=== PATIENT | male | born 1960 ===

== ENCOUNTER 2019-12-06 00:17 | Outpatient (CLI) | payer OTHER, SELFPAY ==
--- NOTE | 2019-12-06 11:37 | DI.US_ITS ---
APPROVED REPORT EXAM: Comprehensive 2D, Doppler, and color-flow Echocardiogram Patient Location: Out-Patient [facility] Helper: Gwen Horta RDCS (AE) Indications: Non Rheumatic Aortic Stenosis Conclusion Left Ventricle : The left ventricle is normal size. There is normal left ventricular wall thickness. The left ventricular systolic function is normal. The left ventricular ejection fraction is within th e normal range. There is normal LV segmental wall motion. The left ventricular diastolic function is normal. LVEF is 50-55%. Right Ventricle : The right ventricle is normal size. The right ventricular systolic function is norm al. Atria : The left atrium size is normal. Right atrium is borderline dilated. Aortic Valve : The aortic valve is normal in structure. Aortic valve is trileaflet. Mild aortic regur gitation. Mild aortic stenosis. Mitral Valve : The mitral valve is normal in structure. There is no mitral valve regurgitation noted. No evidence of mitral valve stenosis. Great vessels: IVC is normal in size and collapses >50% with inspiration. There is no prior echocardiogram available for comparison. Wall motion Left Ventricle The left ventricle is normal size. The left ventricular systolic function is normal. The left ventric ular ejection fraction is within the normal range. There is normal left ventricular wall thickness. T here is normal LV segmental wall motion. The left ventricular diastolic function is normal. LVEF is 5 0-55%. Right Ventricle The right ventricle is normal size. The right ventricular systolic function is normal. Atria The left atrium size is normal. Right atrium is borderline dilated. Aortic Valve The aortic valve is normal in structure. Aortic valve is trileaflet. Mild aortic stenosis. Mild aorti c regurgitation. Mitral Valve The mitral valve is normal in structure. No evidence of mitral valve stenosis. There is no mitral allison ve regurgitation noted. Tricuspid Valve The tricuspid valve is normal in structure. There is no tricuspid valve stenosis. Trace to mild tricu spid regurgitation. Pulmonic Valve The pulmonary valve is normal in structure. There is no pulmonic valvular stenosis. There is no pulmo maddison valvular regurgitation. Great Vessels The aortic root is normal in size. The ascending aorta is normal in size. IVC is normal in size and c ollapses >50% with inspiration. Pericardium There is no pericardial effusion. 2D Dimensions IVSD d PLAX 1.01 cm LV Vol A2C d MOD 101.6 mL LVPW d PLAX 0.97 cm LV Vol A4C d MOD 82.5 mL LVID d PLAX 4.29 cm LA vol/ BSA A2C s A-L 17.9 mL/m2 LVDs 3.10 cm LA vol/ BSA A4C s A-L 19.1 mL/m2 Ao Root d 3.31 cm LA Vol/ BSA Biplane s A-L 18.9 mL/m2 RA Area A4C 11.33 cm2 LA Area A4C s MOD 12.58 cm2 RA Vol/ BSA A4C s A-L 14.2 mL/m2 LA Area A2C s MOD 12.43 cm2 Ao Asc Diam d 3.26 cm LV EF A4C MOD 45.7 % LV EF Teichholz 54.0 % LV EF A2C MOD 58.6 % LVEF (Herron's) 53.08 % LV EF Biplane MOD 53.1 % LV Volume 73.85 mL LV Volume Index 46.63 mL/m2 LV Vol Biplane MOD 94.4 mL FS 27.65 % LV Diastology MV E' medial 0.072 (>0.07 m/s) E/A Ratio 1.25 LV E/e MED 9.15 (<14) MV E Vmax 0.66 (0.4-1.3 m/s) MV E' lateral 0.116 (>0.1 m/s) MV A Vmax 0.50 (0.4-1.3 m/s) LV E/e LAT 5.70 (<14) MV E/A Ratio 1.25 MV E/E' medial 9.19 MV E/E' lateral 5.71 Aortic Valve LVOT Vmax 0.81 m/s AR DT 1863 msec LVOT Mean Macho. 0.51 m/s AR PHT 540 msec LVOT Peak Grad 2.6 mmHg LVOT Mean Grad 1.2 mmHg LVOT VTI 0.208 m AoV Vmax 2.79 (0.5-1.3 m/s) AoV Mean Macho. 2.04 m/s AoV Peak Grad 31.2 mmHg AoV Mean Grad 18.3 (<5 mmHg) AoV VTI 0.649 (0.18-0.25 m) Mitral Valve MV DT 174 (160-240 msec) MV PHT 50 msec MV Area PHT 4.36 cm2 Pulmonary Valve PV Vmax 0.98 (0.5-1.5 m/s) RVOT Peak Gr. 1.15 mmHg PV Peak Grad 3.9 mmHg RVOT Mean Gr. 0.60 mmHg PV Mean Grad 1.9 mmHg RVOT VTI 0.119 m PV VTI 0.199 m RVOT Vmax 0.54 m/s Tricuspid Valve TR Peak Grad 21.6 mmHg TR Vmax 2.33 m/s RA Pressure 3.00 mmHg RVSP (TR) 24.7 mmHg
== END 2019-12-06 00:37 ==
PROVIDERS: PCP Neuromusculoskeletal Medicine & OMM; Visit Provider Neuromusculoskeletal Medicine & OMM
DX: I35.2 Nonrheumatic aortic (valve) stenosis with insufficiency
CPT/HCPCS: 93306

== ENCOUNTER 2022-08-06 15:00 | Outpatient (CLI) | payer OTHER, SELFPAY ==
--- NOTE | 2022-08-06 14:30 | DI.RAD_ITS ---
Exam(s) XR HIP LT COMPLETE AP PELVIS EXAM: XR HIP LT COMPLETE AP PELVIS INDICATION: suspect osteoarthritis. COMPARISON: No exams were available for comparison TECHNIQUE: 2D digital imaging was performed. Two views. FINDINGS: Mild bilateral hip joint space narrowing. Left moderate acetabular spurring and mild spurring at the margin of the left femoral head. Subchondral cysts. Mild spurring at the right hip joint. IMPRESSION: Moderate degenerative changes of the left hip. Mild degenerative changes of right hip. DATA REPOSITORY: RADIATION DOSE DELIVERED:
== END 2022-08-06 15:01 | disposition home or self-care (01) ==
LOC: DIORS 15:00
PROVIDERS: PCP Neuromusculoskeletal Medicine & OMM; Referring Provider Neuromusculoskeletal Medicine & OMM; Visit Provider Physician Assistant Surgical
DX: M25.552 Pain in left hip (principal); M16.0 Bilateral primary osteoarthritis of hip
CPT/HCPCS: 73502

== ENCOUNTER → 2022-08-23 02:53 | Outpatient (CLI) | payer OTHER, SELFPAY ==
--- NOTE | 2022-08-23 14:52 | W.PROCNOTE ---
Date of service: 08/23/22 Time of Service: 14:52 Procedure Note Date of procedure: 08/23/22 Procedure: Left Hip Injection with Fluoroscopic Guidance Surgeon/Proceduralist/Physician: Talon Keller Procedure Diagnosis: Left Hip Osteoarthritis Procedure Indications: Karlos has had persistent pain of the LEFT hip and groin. Noninvasive measures have been tried. To serve as both diagnostic and therapeutic, an injection under fluoroscopy was recommended. I had discussed the risks of the procedure and the patient elected to proceed. Procedure Description: Karlos was greeted in the flouroscopy room. The correct side was identified and the consent was reviewed with the patient and signed. The patient was then placed in the supine position on the fluoroscopy table. The LEFT hip was then prepped with Chloraprep. The anterolateral injection starting point was identiifed by bony landmarks and fluoroscopy. The skin and soft tissue in the tract of the injection was anesthetized with 1% Lidocaine. A spinal needle was then inserted deep into the hip joint at the level of the lateral femoral neck under fluoroscopic guidance. A small amount of Omnipaque solution was injected to confirm intraarticular placement. Once confirmed, the hip was injected with 5cc of 0.5% Bupivicaine and 80mg of Depo-Medrol. A bandaid was placed on the injection site. The patient tolerated the procedure well and noted improvement in pre-injection pain.
[2022-08-23] MEDS: Bupivacaine 0.5% Pres-Free 10 ML VIAL 5 ML IJ (14:59)
[2022-08-23] MEDS: methylPREDNISolone ACETATE 80 MG/ML VIAL IM (15:00)
--- NOTE | 2022-08-23 15:04 | DI.RAD_ITS ---
Exam(s) RF JOINT INJECTION FLUORO GUID EXAM: RF JOINT INJECTION FLUORO GUID CLINICAL HISTORY: L HIP INJ UNDER FLUORO, LT HIP PAIN, M25.552 TECHNIQUE: 2D and realtime digital imaging was performed. COMPARISON: No exams were available for comparison FINDINGS: Fluoroscopy was utilized by Dr. Keller during left hip injection. Hard copy shows intra-articular injection. IMPRESSION: RADIATION DOSE DELIVERED: Halr=0.68 mGy Total DLP
== END ==
PROVIDERS: PCP Neuromusculoskeletal Medicine & OMM; Visit Provider Student in an Organized Health Care Education/Training Program
DX: M25.552 Pain in left hip (principal)
CPT/HCPCS: 20610; 77002; J1040

== ENCOUNTER 2023-02-11 07:20 | Emergency (ER) | payer OTHER, SELFPAY ==
[2023-02-11 07:24] VITALS: BP 144/85; PULSE 58; RESP 20; TEMP 37; O2SAT 95
--- NOTE | 2023-02-11 07:37 | W.ED.GENAD ---
Discharge Plan Disposition Patient Disposition: Home Discharge Details Clinical Impression: Infected tick bite of thoracic region Primary Care Provider: Sachin Sainz ED Provider: Velasquez Willett Home Meds and New Rx's Prescriptions: New doxycycline hyclate 100 mg capsule 100 mg PO BID Qty: 10 0RF Continued omeprazole 20 mg tablet,delayed release (DR/EC) 20 mg PO DAILY atorvastatin 10 mg tablet 10 mg PO DAILY brimonidine 0.2 % drops 1 drp ophthalmic (eye) BID dorzolamide (PF) 2 % drops 1 drp ophthalmic (eye) BID lisinopril 10 mg tablet 10 mg PO DAILY timolol maleate 0.5 % drops 1 drp ophthalmic (eye) BID Discharge Instructions Instructions: Tick Bite (ED) Additional Instructions: Please read all of the information that accompanies these instructions. You were seen in the emergency department for your check right. It is possible that you have an early infection of your tick bite for which you are receiving antibiotics that you should take infected. Please schedule an appointment with your primary care provider later this week as needed. Please return to the emergency department if if you develop fevers difficulty breathing or have any other concerns. Medical Decision Making This is an overall quite well-appearing normothermic and not tachycardic 62-year-old male who is 5 days status post tick bite now with erythema and surrounding streaking red signs of infection concerning for the possibility of early localized infection from Borrelia burgdorferi for which he will receive 10 days of twice daily treatment with doxycycline. No shortness of breath to suggest Lyme carditis. Not altered to suggest late disseminated infection. Patient has what appears to be retained mouthparts from a tick. I advised him that the risks of surgical removal of these mouthparts outweigh the benefits of empiric trial of expectant outpatient management. I advised patient to soak his tick bite twice a day with a warm washcloth. I advised that if he developed significant swelling or any purulent drainage that he should return back to the ED. I considered cellulitis however the red band surrounding the patient's rash was most consistent with erythema migrans. No pain out of proportion to suggest necrotizing soft tissue infection. No chest pain to suggest ACS. Patient is nontoxic-appearing to suggest babesiosis. No history of trauma and no shortness of breath to suggest pneumothorax. I have advised primary care follow-up as needed later this week. I also advised ED return if he develops any shortness of breath fevers chest pain or if he has any other concerns. HPI General Date/Time Provider Initiated Documentation: 02/11/23 07:37. HPI Narrative: This is a 62-year-old male arriving via private vehicle with a tick bite on his right chest. Patient notes that he was walking with his dog outdoors in [facility]. 5 days ago he feels that he was bitten by a tick. The tick bite was on his right chest. 3 days ago using his finger and some tweezers and he was able to remove the majority of the check. He is concerned today as he noticed a rash surrounding the tick bite. He is also concerned about the retained parts of the tick. He denies any fevers chest pain shortness of breath nausea and vomiting. He is not having any chest pain. He has no headache. Related Data Home Medications Medication Instructions Recorded Confirmed atorvastatin 10 mg tablet 10 mg PO DAILY 06/18/22 02/11/23 brimonidine 0.2 % eye drops 1 drp ophthalmic (eye) BID 06/18/22 02/11/23 dorzolamide (PF) 2 % (PF) eye drops 1 drp ophthalmic (eye) BID 06/18/22 02/11/23 lisinopril 10 mg tablet 10 mg PO DAILY 06/18/22 02/11/23 timolol maleate 0.5 % eye drops 1 drp ophthalmic (eye) BID 06/18/22 02/11/23 omeprazole 20 mg tablet,delayed 20 mg PO DAILY 08/06/22 02/11/23 release doxycycline hyclate 100 mg capsule 100 mg PO BID #10 caps 02/11/23 Previous Rx's Medication Instructions Recorded doxycycline hyclate 100 mg capsule 100 mg PO BID #10 caps 02/11/23 Allergies Allergy/AdvReac Type Severity Reaction Status Date / Time No Known Allergies Allergy Verified 02/11/23 07:31 General Stated Complaint: AnimalBite EMILIANO: 4 PFSH All Active Problems (Updated 02/11/23 @ 07:47 by Velasquez Willett MD) Infected tick bite of thoracic region (Acute) Osteoarthritis of left hip (Acute) Aortic stenosis (Chronic) Medical History (Updated 02/11/23 @ 07:47 by Velasquez Willett MD) Chest pain GERD (gastroesophageal reflux disease) Glaucoma Heart murmur Hyperlipidemia Hypertensive disorder Unilateral inguinal hernia Social History Smoking/Tobacco Use Status: Never Smoking risk assessment performed?: Yes Alcohol Intake: never Substance use type: does not use Do you feel safe at home: Yes Do you feel safe in your relationship?: Yes Exam Narrative Exam Narrative: General: Well-appearing in no acute distress speaking in complete sentences. Head: Normocephalic, atraumatic. Eye: Pupils equal, round reactive to light. Extraocular eye movements intact. No conjunctival injection. No scleral icterus. Ear, nose, mouth, throat: Grossly normal inspection. Normal voice, handling secretions normally. Neck: Trachea midline. Cardiovascular: Well-perfused distal extremities. Chest wall: On the right side of the patient's chest just medial to his right nipple there is a small area of body parts from what appears to be a tic. Just lateral to this there is an approximately 6 cm erythematous demarcation. No pain out of proportion. No crepitance. Respiratory: Nonlabored respiration. Gastrointestinal: Nondistended abdomen. Musculoskeletal: No edema. Moving all 4 extremities spontaneously. Skin: Normal for age and race, grossly normal temperature and turgor. No acute rash. Neurologic: Alert and appropriate, no apparent acute deficits. Psychiatric: Mood and manner are appropriate. Grooming and personal hygiene are appropriate. Course Vital Signs Vital signs: Vital Signs Temperature 37 C 02/11/23 07:24 Pulse 58 L 02/11/23 07:24 Respiratory Rate 20 02/11/23 07:24 Blood Pressure 144/85 H 02/11/23 07:24 Pulse Oximetry 95 02/11/23 07:24 Temperature 37 C 02/11/23 07:24 Temperature Source Oral 02/11/23 07:24 Pulse 58 L 02/11/23 07:24 Respiratory Rate 20 02/11/23 07:24 Respiratory Effort Normal, Non-Labored 02/11/23 07:27 Blood Pressure 144/85 H 02/11/23 07:24 Blood Pressure Position Sitting 02/11/23 07:24 Pulse Oximetry 95 02/11/23 07:24 Oxygen Delivery Method Room Air 02/11/23 07:24 Oxygen Flow Rate 0 02/11/23 07:24 Pain Level 0 02/11/23 07:24
[2023-02-11] MEDS: Doxycycline Hyclate 100 MG CAP PO (07:50)
== END 2023-02-11 07:52 | disposition home or self-care (01) ==
PROVIDERS: Emergency Provider Emergency Medicine; PCP Neuromusculoskeletal Medicine & OMM
DX: S20.361A Insect bite (nonvenomous) of right front wall of thorax, initial encounter (principal); W57.XXXA Bitten or stung by nonvenomous insect and other nonvenomous arthropods, initial encounter; L08.9 Local infection of the skin and subcutaneous tissue, unspecified
CPT/HCPCS: 99283

== ENCOUNTER 2023-10-24 15:50 | Outpatient (REF) | payer OTHER, SELFPAY ==
--- NOTE | 2023-10-24 14:30 | SKI_PTH ---
PATIENT: Karlos Anthony LOC: [facility] U#:[id number] AGE/SX: 63/M ROOM: RE10/24/[address]: Oscar Nichole MD : 1960 BED: DIS: 10/24/2023 SPEC #: [id number] RECD: 10/24/23 18:18 STATUS: CASSIE REQ #: [id number] MARYJANE: 10/24/23 14:[address]: Oscar Nichole DEPT: Surgical Specimen RECD BY: Shruthi Peña ENTERED: 10/24/23 18:19 SP TYPE: MANI MERINO DR: Vanessa Christian Tissues: 1 - SKIN BIOPSY(SHAVE/PUNCH) Procedures: SKIN LEVEL 4 Comments: [id number]
== END 2023-10-24 15:51 | disposition home or self-care (01) ==
LOC: LBN 15:50
PROVIDERS: PCP Nurse Practitioner Family; Visit Provider Otolaryngology
DX: L82.1 Other seborrheic keratosis (principal)
CPT/HCPCS: 88305

== ENCOUNTER 2023-12-18 16:36 | Outpatient (REF) | payer OTHER, SELFPAY ==
[2023-12-18 17:07] LABS: Anion Gap 4.1 mmol/L (3-11); BUN 14 mg/dL (7-18); CO2 30.9 mmol/L (21.0-32.0); Calcium 9.3 mg/dL (8.5-10.1); Chloride 104 mmol/L (98-107); Estimated GFR 84.05 (mL/min/1.73m2); Glucose 90 mg/dL (74-106); Magnesium 1.8 mg/dL (1.8-2.4); Potassium 4.9 mmol/L (3.5-5.1); Sodium 139 mmol/L (136-145)
== END 2023-12-18 16:37 | disposition home or self-care (01) ==
LOC: NCHCN 16:36
PROVIDERS: PCP Nurse Practitioner Family; Visit Provider Nurse Practitioner Family
DX: K30 Functional dyspepsia (principal); I10 Essential (primary) hypertension
CPT/HCPCS: 80048; 83735

== ENCOUNTER 2024-03-30 11:25 | Outpatient (RCR) | payer OTHER, SELFPAY | END 2024-04-05 23:59 | disposition home or self-care (01) | LOC: CR 11:25 | PROVIDERS: PCP Nurse Practitioner Family; Visit Provider Internal Medicine Cardiovascular Disease | DX: I25.810 Atherosclerosis of coronary artery bypass graft(s) without angina pectoris (principal) | CPT/HCPCS: S9472 ==

== ENCOUNTER 2024-04-16 01:04 | Outpatient (CLI) | payer OTHER, SELFPAY ==
[2024-04-16 10:05] LABS: Calculated LDL 101 mg/dL (<100); Cholesterol 171 mg/dL (<200); HDL Cholesterol 36 mg/dL (40-60); Triglyceride 171 mg/dL (<150)
== END 2024-04-16 01:05 | disposition home or self-care (01) ==
LOC: LBO 01:04
PROVIDERS: Absent Provider Nurse Practitioner Family; PCP Nurse Practitioner Family; Referring Provider Nurse Practitioner Family; Visit Provider Nurse Practitioner Family
DX: E78.5 Hyperlipidemia, unspecified (principal)
CPT/HCPCS: 36415; 80061

== ENCOUNTER 2024-05-06 08:32 | Outpatient (RCR) | payer OTHER, SELFPAY ==
--- OUTSIDE RECORDS SUMMARY | 2024-05-06 08:34 | XMS_ITS | Referral Summary ---
Author Organization [facility] Address [address] [place] [address] Care Team Providers Care Spud Sorter Name Role Phone Filidayna Vanessa Sherman NP Primary Care Provider [phone] Social History Tobacco Use Types Packs/Day Years Used Date Smoking Tobacco: Never Assessed Sex and Gender Information Value Date Recorded Sex Assigned at Not on file Gender Identity Not on file Sexual Orientation Not on file Plan of Treatment Not on file Care Teams Spud Sorter Relationship Specialty Start Date End Date Vanessa Christian NP [address] [place] [address] PCP - General Family Medicine - Primary Care 10/07/23
--- OUTSIDE RECORDS SUMMARY | 2024-05-06 08:34 | XMS_ITS | Encounter Summary ---
Author Organization [facility] Address [address] [place] [address] Care Team Providers Care Electric Meter Repairer Helper Name Role Phone Vanessa Christian Lane MONCADA Primary Care Provider [phone] Encounter Details Date Type Department Care Team (Late st Contact Info) Description 10/24/2023 Lab Requisition [facility] Pathology & Laboratory Medicine - [address] [address] Oscar Nichole MD [address] [place] [address] [id number] Factitial dermatitis Social History Tobacco Use Types Packs/Day Years Used Date Smoking Tobacco: Never Assessed Sex and Gender Information Value Date Recorded Sex Assigned at Not on file Gender Identity Not on file Sexual Orientation Not on file documented as of this encounter Plan of Treatment Not on file documented as of this encounter Procedures Procedure Name Priority Date/Time Associated Diagnosis Comments SURGICAL PATHOLOGY Today 10/24/2023 14 :30 EST Factitial dermatitis documented in this encounter Results * SURGICAL PATHOLOGY (10/24/2023 14:30 EST) Note to Patient The following pathology results have been interpreted by your pathologist and may be available to you before your health provider has had the opportunity to review them. Please allow time for your provider to receive these results and explore management options, if applicable. 10/28/2023 11:24 EST [facility] Final Diagnosis A. SKIN OF MANDAEN, LEFT, SHAVE BIOPSY: - Seborrheic keratosis, pigmented. 10/28/2023 11:24 EST [facility] Attestation By the signature below, the attending physician certifies that they have 1) personally conducted a gross and/or microscopic examination of the described specimen(s), and/or personally interpreted the results of laboratory testing of the described specimen(s), and 2) personally rendered or confirmed the above diagnosis. 10/28/2023 11:24 [facility] at 1124 Microscopic Description The stratum corneum is thickened by compact and basketweave orthokeratosis with formation of horn pseudocysts. The epidermis is acanthotic with formation of broad and anastomosing trabeculae. The trabeculae are composed of basaloid keratinocytes with round uniform nuclei. The keratinocytes have a variable amount of melanin pigment. 10/28/2023 11:24 [facility] Clinical History Pigmented 2 cm patch; clinical diagnosis code: L98.1 10/28/2023 11:24 [facility] Gross Description A. Received in formalin labelled with proper patient identification (initials P, A) and left jewish is a shave biopsy of an irregular fisher-brown granular plaque (1.8 x 1.3 x 0.2 cm). Received in the same specimen container is a shave biopsy of irregular rogers focally brown skin (0.7 x 0.4 x 0.1 cm). The larger tissue is serially sectioned and entirely submitted in A1-A2 and the smaller tissue is bisected and entirely submitted in A3. Nora Anderson 10/25/2023 8:47 10/28/2023 11:24 [facility] Performing Lab [facility] 10/28/2023 11:24 [facility] Scanned Images 10/28/2023 11:24 [facility] Tissue SPECIMEN FROM SKIN / Unknown 10/24/2023 14:30 EST 10/24/2023 22:04 EST Oscar Nichole MD PATHOLOGY ORDERABLES [facility] [address] [place] [address] documented in this encounter Visit Diagnoses Diagnosis Factitial dermatitis Dermatitis factitia (artefacta) documented in this encounter Care Teams Electric Meter Repairer Helper Relationship Specialty Start Date End Date Vanessa Christian NP [address] [place] [address] PCP - General Family Medicine - Primary Care 10/07/23 documented as of this encounter
--- OUTSIDE RECORDS SUMMARY | 2024-05-06 08:34 | XMS_ITS | Clinical Summary ---
Author Organization [facility] Address [address] [place] [address] Care Team Providers Care Ethylbenzene Oxidizer Name Role Phone Vanessa Christian NP Primary Care Provider [phone] Social History Tobacco Use Types Packs/Day Years Used Date Smoking Tobacco: Never Assessed Sex and Gender Information Value Date Recorded Sex Assigned at Not on file Gender Identity Not on file Sexual Orientation Not on file Plan of Treatment Health Maintenance Due Date Last Done Comments Hepatitis C Screen 1960 RSV Immunization ( o r 60+ Years) (1 - 1-dose 60+ series) 2019 COVID-19 Vaccine (2022-24 season) 2023 Care Teams Ethylbenzene Oxidizer Relationship Specialty Start Date End Date Vanessa Christian NP [address] [place] [id number] PCP - General Family Medicine - Primary Care 10/07/23
--- OUTSIDE RECORDS SUMMARY | 2024-05-06 08:35 | XMS_ITS | Clinical Summary ---
Author Organization [facility] Address [facility] [place] [address] Care Team Providers Care Farm Equipment Operator Name Role Phone Gino Aparna Lane DOTSON Primary Care Provider [phone] Allergies No known active allergies Medications Medication Sig Dispensed Refills Start Date End Date Status aspirin EC 81 mg EC (DR) tablet Take 81 mg by mouth daily. Active multivitamin (THERAGRAN) Tablet Take 1 tablet by mouth daily. Active atorvastatin (Lipitor) 10 mg tablet Take 10 mg by mouth daily. Active brimonidine (Alphagan) 0.2 % Drops Place 1 drop into both eyes 2 times daily. Active tamsulosin (Flomax) 0.4 mg capsule Take 0.4 mg by mouth daily. Active timoloL (Timoptic) 0.5 % Drops Place 1 drop into both eyes daily. Active dorzolamide (Trusopt) 2 % Drops 3 times daily. Active acetaminophen (Tylenol) 325 mg tablet Take 3 tablets by mouth every 6 hours as needed for Pain. 30 tablet 1 02/24/2024 Active Additional Information Patient not taking.Reported on 03/12/2024 apixaban (Eliquis) 5 mg tablet Take 1 tablet by mouth 2 times daily. 180 tablet 3 02/24/2024 Active metoprolol tartrate (Lopressor) 100 mg tablet Take 1 tablet by mouth 2 times daily. 180 tablet 3 02/24/2024 Active amoxicillin (Amoxil) 500 mg capsule Take 4 capsules by mouth once as needed for up to 1 dose. Please take 1 hour PRIOR to ANY dental procedure 4 capsule 02/24/2024 Active Additional Information Patient not taking.Reported on 03/12/2024 apixaban (Eliquis) 5 mg tablet Take 1 tablet by mouth 2 times daily. 3 tablet 02/24/2024 Active metoproloL tartrate (Lopressor) 100 mg tablet Take 1 tablet by mouth 2 times daily. 3 tablet 02/24/2024 Active lisinopriL (Zestril) 10 mg tablet Take 1 tablet by mouth daily. 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 Trace regurgitation. Normal bi-v s/f, no other valve findings Assessment & Plan (10/21/2023 3:47 PM EST): Based on patient's history, it seems like he indeed has severe . However, his demographics, rapidity of worsening (had TTE in 2019 which demonstrated but mild disease) are contrary to this. Will review images personally, but in the meantime will [place] [facility] [place]. Logistics and preliminary review of TONY were reviewed with patient. - Refer to [facility] Hypertension 08/14/2023 HLD (hyperlipidemia) 08/14/2023 Resolved Problems Problem Noted Date Diagnosed Date Resolved Date Chest pressure 08/14/2023 10/21/2023 SILVA (dyspnea on exertion) 08/14/2023 Encounters Date Type Department Care Team Description 03/12/2024 2:40 PM EDT Office [place] [address] Zak Farmer MD Coronary artery disease, unspecified vessel or lesion type, unspecified whether angina present, unspecified whether yurok or transplanted heart 03/12/2024 1:30 PM EDT - 03/12/2024 11:59 PM EDT Hospital Encounter XRay at [address] [place] [id number] Coronary artery disease, unspecified vessel or lesion type, unspecified whether angina present, unspecified whether yurok or transplanted heart Discharge Disposition: Home 03/12/2024 Travel 02/24/2024 Orders [place] [address] Trudi Lester APRN 02/17/2024 7:35 AM EDT Anesthesia Event [place] [address] Tara York MD 02/17/2024 7:30 AM EDT - 02/17/2024 1:26 PM EDT Surgery [place] [address] Zak Farmer MD ENDOSCOPIC HARVEST VEIN(S) FOR CABG (WRVU 0.31) 02/17/2024 5:43 AM EDT - 02/24/2024 11:23 AM EDT Hospital Encounter Heart and Vascular Unit Level 4 [place] [address] Zak Farmer MD S/P AVR (Primary Dx); Aortic valve stenosis, etiology of cardiac valve disease unspecified Discharge Disposition: Home with VNA 02/14/2024 [place] [address] Zak Farmer MD Coronary artery disease, unspecified vessel or lesion type, unspecified whether angina present, unspecified whether yurok or transplanted heart (Primary Dx) from Last 3 Months Social History Tobacco Use Types Packs/Day Years Used Date Smoking Tobacco: Former Cigarettes Smokeless Tobacco: Never Comments:Quit 15 + years ago Alcohol Use Standard Drinks/Week Comments Yes 0 (1 standard drink = 0.6 oz pur e alcohol) rare [facility] Utilities Answer Date Recorded In the past 12 months has [employer], gas, oil, or water [employer] threatened to shut off services in your home? No 02/18/2024 Hunger Vital Sign Answer Date Recorded Within the past 12 months, y ou worried that your food would run out before you got the money to buy more. Never true 02/18/20 24 Within the past 12 months, t he food you bought just didn't last and you didn't have money to get more. Never true 02/18/2024 PRAPARE - Transportation Answer Date Re corded In the past 12 months, has l ack of transportation kept you from medical appointments or from getting medications? No 02/04 In the past 12 months, has l ack of transportation kept you from meetings, work, or from getting things needed for daily living? No 02/18/2024 Housing Stability Vital Sign Answer Manfred e Recorded Unable to Pay for Housing in the Last Year Not o n file 02/18/2024 Number of Places Lived in the Last Year Not on f ile 02/18/2024 In the last 12 months, was t here a time when you did not have a steady place to sleep or slept in a halfway (including now)? No 02/18/2024 DH IPV Inpatient Questions Answer Date Recorded Does Anyone Try to Keep You From Having Contact with Others or Doing Things Outside Your Home? unable to answer (comment required) 02/17/2024 Feels Threatened by Someone unable to an swer (comment required) 02/17/2024 Feels Unsafe at Home or Work/School unab le to answer (comment required) 02/17/2024 Physical Signs of Abuse Present no 02/17/2024 Sex and Gender Information Value Date Recorded Sex Assigned at Not on file Gender Identity Not on file Sexual Orientation Not on file Last Filed Vital Signs Vital Sign Reading Time Taken Comments Blood Pressure 128/75 03/12/2024 2:24 PM EDT Pulse 60 03/12/2024 2:24 PM EDT Temperature 36.7 ??C (98 ??F) 02/24/2024 7:49 AM EDT Respiratory Rate 18 02/24/2024 7:49 AM EDT Oxygen Saturation 98% 03/12/2024 2:24 PM EDT Inhaled Oxygen Concentration - - Weight 62.6 kg (138 lb) 03/12/2024 2:24 PM EDT Height 167.6 cm (5' 6) 03/12/2024 2:24 PM EDT Body Mass Index 22.27 03/12/2024 2:24 PM EDT Plan of Treatment Upcoming Encounters Date Type Department Care Team (Late st Contact Info) Description 05/27/2024 11:00 AM EDT Office Visit Cardiology at [address] [place] [address] Neftali Ernandez MD [facility] [place] [address] Health Maintenance Due Date Last Done Comments CT Colonography 1959 Colonoscopy 1959 Colorectal Cancer Screening 1959 FIT DNA 1959 FIT 1959 Sigmoidoscopy (10 year) with FIT yearly 1959 Sigmoidoscopy 1959 HIV screen 1977 Hepatitis C Screening 1977 Tdap adult 1978 Tetanus vaccine 1978 Zoster vaccine (1 of 2) 2009 Advance Directive 2014 Covid-19 Vaccine ( season) 2023 Influenza (Flu) vaccine (1 o f 1 - Influenza standard series) 06/07/2024 Medical Devices Implanted Type Area Geothermal Heat Pump Machinist Device Identifier Shelf Expiration Date Model / Serial / Lot Cable,Cut,Edg ,Blnt,Ss,3tpr ([id number]) - [id number] Implanted:Qty : 1 on 02/17/2024 by Zak Farmer MD at [facility] IMPLANTS Midline: Chest [employer] - [id number] 09/02/2028 [id number] / / [id number] Valve Coronary Aortic 23mm Tissue Trnscath Biopros Inspiris ([id number]) ([employer]ore[employer]) - [id number] Implanted:Qty : 1 on 02/17/2024 by Zak Farmer MD at [facility] IMPLANTS Heart [employer] - TSAI LI 09/15/2027 [id number] 23MM / [id number] / Procedures Procedure Name Priority Date/Time Associated Diagnosis Comments EKG 12-LEAD Routine 03/12/2024 2:35 PM EDT Coronary artery disease, unspecified vessel or lesion type, unspecified whether angina present, unspecified whether yurok or transplanted heart XR CHEST PA AND LATERAL Routine 03/12/20 1:42 PM EDT Coronary artery disease, unspecified vessel or lesion type, unspecified whether angina present, unspecified whether yurok or transplanted heart SCAN DOC: TELEMETRY STRIPS 02/24/2024 8:03 AM EDT SCAN DOC: TELEMETRY STRIPS 02/24/2024 7:24 AM EDT HC VENIPUNCTURE Routine 02/24/2024 4:42 AM EDT SCAN DOC: TELEMETRY STRIPS 02/23/2024 8:52 PM EDT SCAN DOC: TELEMETRY STRIPS 02/23/2024 1:33 PM EDT SCAN DOC: TELEMETRY STRIPS 02/23/2024 1:33 PM EDT SCAN DOC: TELEMETRY STRIPS 02/23/2024 11:45 AM EDT BASIC METABOLIC PANEL (NON-FASTING) Routine 02/23/2024 4:24 AM EDT SCAN DOC: TELEMETRY STRIPS 02/22/2024 8:48 PM EDT SCAN DOC: TELEMETRY STRIPS 02/22/2024 1:22 PM EDT SCAN DOC: TELEMETRY STRIPS 02/22/2024 10:57 AM EDT SCAN DOC: TELEMETRY STRIPS 02/22/2024 8:44 AM EDT SCAN DOC: TELEMETRY STRIPS 02/22/2024 8:38 AM EDT SCAN DOC: TELEMETRY STRIPS 02/22/2024 6:05 AM EDT HC VENIPUNCTURE Routine 02/22/2024 4:30 AM EDT SCAN DOC: TELEMETRY STRIPS 02/21/2024 8:21 PM EDT SCAN DOC: TELEMETRY STRIPS 02/21/2024 3:08 PM EDT SCAN DOC: TELEMETRY STRIPS 02/21/2024 10:00 AM EDT BASIC METABOLIC PANEL (NON-FASTING) Routine 02/21/2024 9:45 AM EDT HC L-LACTATE Routine 02/21/2024 9:45 AM EDT HEPATIC FUNCTION PANEL Routine 9:45 AM EDT HC LIPASE Routine 02/21/2024 9:45 AM EDT HC VENIPUNCTURE Routine 02/21/2024 9:45 AM EDT SCAN DOC: TELEMETRY STRIPS 02/21/2024 7:17 AM EDT HC POTASSIUM Routine 02/21/2024 3:08 AM EDT SCAN DOC: TELEMETRY STRIPS 02/20/2024 8:18 PM EDT SCAN DOC: TELEMETRY STRIPS 02/20/2024 8:16 PM EDT SCAN DOC: TELEMETRY STRIPS 02/20/2024 8:15 PM EDT SCAN DOC: TELEMETRY STRIPS 02/20/2024 7:51 PM EDT SCAN DOC: TELEMETRY STRIPS 02/20/2024 1:31 PM EDT SCAN DOC: TELEMETRY STRIPS 02/20/2024 1:11 PM EDT SCAN DOC: TELEMETRY STRIPS 02/20/2024 1:07 PM EDT SCAN DOC: TELEMETRY STRIPS 02/20/2024 11:39 AM EDT XR CHEST PA AND LATERAL Routine 02/20/20 10:19 AM EDT SCAN DOC: TELEMETRY STRIPS 02/20/2024 9:26 AM EDT SCAN DOC: TELEMETRY STRIPS 02/20/2024 7:13 AM EDT SCAN DOC: TELEMETRY STRIPS 02/20/2024 5:39 AM EDT SCAN, PERIPHERAL BLOOD Routine 4:23 AM EDT DIFFERENTIAL, AUTOMATED Routine 02/20/20 4:23 AM EDT HEMOGRAM Routine 02/20/2024 4:23 AM EDT HC CBC,PLT & AUTO DIFF Routine 4:23 AM EDT BASIC METABOLIC PANEL (NON-FASTING) Routine 02/20/2024 4:23 AM EDT SCAN DOC: TELEMETRY STRIPS 02/19/2024 7:51 PM EDT SCAN DOC: TELEMETRY STRIPS 02/19/2024 6:53 PM EDT SCAN DOC: TELEMETRY STRIPS 02/19/2024 12:01 PM EDT SCAN DOC: TELEMETRY STRIPS 02/19/2024 11:22 AM EDT SCAN DOC: TELEMETRY STRIPS 02/19/2024 11:17 AM EDT SCAN DOC: TELEMETRY STRIPS 02/19/2024 7:58 AM EDT SCAN DOC: TELEMETRY STRIPS 02/19/2024 7:28 AM EDT HC POTASSIUM Routine 02/19/2024 3:57 AM EDT SCAN DOC: TELEMETRY STRIPS 02/18/2024 7:46 PM EDT SCAN DOC: TELEMETRY STRIPS 02/18/2024 7:33 PM EDT SCAN DOC: TELEMETRY STRIPS 02/18/2024 1:14 PM EDT SCAN DOC: TELEMETRY STRIPS 02/18/2024 1:13 PM EDT SCAN DOC: TELEMETRY STRIPS 02/18/2024 12:53 PM EDT SCAN DOC: TELEMETRY STRIPS 02/18/2024 11:24 AM EDT POCT GLUCOSE Routine 02/18/2024 8:24 AM EDT SCAN, PERIPHERAL BLOOD Routine 1:40 AM EDT DIFFERENTIAL, AUTOMATED Routine 02/18/20 1:40 AM EDT HEMOGRAM Routine 02/18/2024 1:40 AM EDT BASIC METABOLIC PANEL (NON-FASTING) Routine 02/18/2024 1:40 AM EDT HC CBC,PLT & AUTO DIFF Routine 1:40 AM EDT HC TROPONIN T Timed 02/18/2024 1:40 AM EDT POCT GLUCOSE Routine 02/17/2024 8:13 PM EDT POCT GLUCOSE Routine 02/17/2024 5:42 PM EDT HC HEMOGLOBIN, BLOOD Routine 02/17/2024 5:42 PM EDT HC POTASSIUM Routine 02/17/2024 5:42 PM EDT EXTUBATE Routine 02/17/2024 4:28 PM EDT BLOOD GAS 2 ARTERIAL Routine 02/17/2024 4:18 PM EDT XR CHEST ONE VIEW STAT 02/17/2024 1:4 4 PM EDT BLOOD GAS 2 ARTERIAL Routine 02/17/2024 1:31 PM EDT EKG 12-LEAD Routine 02/17/2024 1:24 PM EDT COOX2 Routine 02/17/2024 1:21 PM EDT BLOOD GAS 2 ARTERIAL Routine 02/17/2024 12:14 PM EDT HC FIBRINOGEN TITER STAT 02/17/2024 1 2:10 PM EDT HC THROMBIN TIME STAT 02/17/2024 12:1 0 PM EDT HC PARTIAL THROMBOPLASTIN TIME STAT 02/17/2024 12:10 PM EDT HC PROTHROMBIN TIME STAT 02/17/2024 1 2:10 PM EDT HC HEMOGRAM STAT 02/17/2024 12:10 PM EDT BLOOD GAS 2 ARTERIAL Routine 02/17/2024 11:43 AM EDT BLOOD GAS 2 ARTERIAL Routine 02/17/2024 11:08 AM EDT HC HEMOGLOBIN, BLOOD STAT 02/17/2024 11:04 AM EDT HC PLATELET COUNT STAT 02/17/2024 11: 04 AM EDT HC FIBRINOGEN TITER STAT 02/17/2024 1 1:04 AM EDT BLOOD GAS 2 ARTERIAL Routine 02/17/2024 10:41 AM EDT BLOOD GAS 2 ARTERIAL Routine 02/17/2024 10:06 AM EDT SURGICAL PATHOLOGY REPORT Routine 02/17/2024 10:01 AM EDT SPECIMEN TO PATHOLOGY Routine 02/17/2024 10:01 AM EDT BLOOD GAS 2 ARTERIAL Routine 02/17/2024 9:35 AM EDT BLOOD GAS 2 VENOUS Routine 02/17/2024 9: 34 AM EDT BLOOD GAS 2 ARTERIAL Routine 02/17/2024 8:07 AM EDT Replacement Prosthetic Aortic Valve Open W Cardiopulmonary Bypass Homogrf/Stent ([id number]) Yes 02/17/2024 7:28 AM EDT CAD Cabg, Artery-Vein, Two ([id number]) Yes 02/17/2024 7:28 AM EDT CAD Cabg, Arterial, Single ([id number]) Yes 02/17/2024 7:28 AM EDT CAD Endoscopy W/Video-Asst Vein [place], Cabg ([id number]) Yes 02/17/2024 7:28 AM EDT CAD POCT GLUCOSE Routine 02/17/2024 6:38 AM EDT TRANSESOPHAGEAL ECHOCARDIOGRAM IN THE OR Routine 02/17/2024 6:33 AM EDT Aortic valve stenosis, etiology of cardiac valve disease unspecified LAB SCAN 02/17/2024 12:00 AM EDT IMPLANTABLE DEVICES SCAN 02/17/2024 12:00 AM EDT IMPLANTABLE DEVICES SCAN 02/17/2024 12:00 AM EDT from Last 3 Months Results * EKG 12 Lead (03/12/2024 2:35 PM EDT) Only the most recent of2 resultswithin the time period is included. Ventricular rate 59 BPM MUSE SYSTEM Atrial Rate 59 BPM MUSE SYSTEM P-R Interval 190 ms MUSE SYSTEM QRS Duration 92 ms MUSE SYSTEM Q-T Interval 406 ms MUSE SYSTEM QTC Calculated (Bezet) 401 ms MUSE SYSTEM Calculated P [place] -12 degrees MUSE SYSTEM Calculated R [place] 24 degrees MUSE SYSTEM Calculated T [place] 74 degrees MUSE SYSTEM INTERPRETATION Sinus bradycardia T wave abnormality, consider anterior ischemia Abnormal ECG When compared with ECG of 17-FEB-2024 13:24, ME interval has decreased T wave inversion now evident in Anterior leads Confirmed by Paul Guzman ([id number]) on 03/15/2024 8:36:23 AM MUSE SYSTEM 03/12/2024 2:35 PM EDT 03/15/2024 8:36 AM EDT Zak Farmer MD ECG ORDERABLES MUSE SYSTEM * XR Chest PA & Lateral (Generic) (03/12/2024 1:42 PM EDT) Only the most recent of2 resultswithin the time period is included. WORKSTATION ID [id number] RAD Anatomical Region Laterality Modality Chest N/A Digital Radiogra phy Impressions 03/13/2024 8:28 AM EDT 1. Virtual complete interval resolution of right pleural effusion and associated basilar atelectasis. 2. Only slight interval decrease in size of left pleural effusion and associated atelectasis. Thank you for letting us participate in the care of this patient. ??If you are a health care provider and have any questions regarding this report, please contact the number below. ??For patients who have questions please contact the health personal care worker that requested your imaging first. ? Electronically signed by: Augie Sanchez MD, [facility] ([phone]), at 03/13/2024 8:28 AM Narrative 03/13/2024 8:28 AM EDT EXAMINATION: XR CHEST PA AND LATERAL (GENERIC) CLINICAL HISTORY: s/p cabg eval effusions I25.10, Atherosclerotic heart disease of yurok coronary artery without angina pectoris TECHNIQUE: PA and lateral views of the chest COMPARISON: PA and lateral chest 02/20/2024. FINDINGS: Sternal wires, prosthetic aortic valve and mediastinal clips suggest CABG and AVR. The heart is normal in size. No evidence of pulmonary edema. There has been a slight interval decrease in the size of the left pleural effusion and left lower lobe atelectasis. The right pleural effusion and associated atelectasis have essentially resolved. No pneumothorax. Procedure Note Augie Sanchez MD - 03/13/2024 EXAMINATION: XR CHEST PA AND LATERAL (GENERIC) CLINICAL HISTORY: s/p cabg eval effusions I25.10, Atherosclerotic heart disease of yurok coronary artery withoutangina pectoris TECHNIQUE: PA and lateral views of the chest COMPARISON: PA and lateral chest 02/20/2024. FINDINGS: Sternal wires, prosthetic aortic valve and mediastinal clips suggest CABGand AVR. The heart is normal in size. No evidence of pulmonary edema. Therehas been a slight interval decrease in the size of the left pleural effusion andleft lower lobe atelectasis. The right pleural effusion and associatedatelectasis have essentially resolved. No pneumothorax. IMPRESSION 1. Virtual complete interval resolution of right pleural effusion andassociated basilar atelectasis. 2. Only slight interval decrease in size of left pleural effusion andassociated atelectasis. Thank you for letting us participate in the care of this patient. If youare a health care provider and have any questions regarding this report,please contact the number below. For patients who have questions please contactthe health personal care worker that requested your imaging first. Electronically signed by: Augie [facility]([phone]), at 03/13/2024 8:28 AM Zak Farmer MD IMG DX ORDERABLES * Scan Doc: Telemetry Strips (02/24/2024 8:03 AM EDT) Only the most recent of40 resultswithin the time period is included. Narrative 02/24/2024 8:03 AM EDT Ordered by an unspecified provider. Scanning Provider MEDIA MGR SCAN EXT O RDR/RSLT * Potassium (02/24/2024 4:42 AM EDT) Only the most recent of5 resultswithin the time period is included. Potassium 4.0 3.5 - 5.0 mmol/L [facility] Comment: Please note: ??Patients with WBC >100,000 may have falsely elevated Potassium levels. ??For accurate Potassium quantification in these patients send serum separator tube (gold top) for subsequent determinations. ??Contact the Clinical Chemistry Laboratory if there are any questions. Blood 02/24/2024 4:42 AM EDT 02/24/2024 4:59 AM EDT Narrative Resulting Agency Comment Spec In Lab Zak Farmer MD CHEMISTRY ORDERABLE S [facility] [place] [address] * (ABNORMAL) Basic Metabolic Panel (non-fasting) (02/23/2024 4:24 AM EDT) Only the most recent of4 resultswithin the time period is included. Glucose Lvl 117 65 - 199 mg/dL [facility] Comment:Diabetes: >=200 mg/d L plus symptoms BUN 18 10 - 20 mg/dL [facility] Creatinine 0.71(L) 0.80 - 1.50 mg/dL [facility] Sodium 138 135 - 145 mmol/L [facility] Potassium 4.4 3.5 - 5.0 mmol/L [facility] Comment: Please note: ??Patients with WBC >100,000 may have falsely elevated Potassium levels. ??For accurate Potassium quantification in these patients send serum separator tube (gold top) for subsequent determinations. ??Contact the Clinical Chemistry Laboratory if there are any questions. Chloride 101 98 - 107 mmol/L [facility] CO2 26 22 - 31 mmol/L [facility] Anion Gap 11 5 - 15 mmol/L [facility] Calcium 8.8 8.5 - 10.5 mg/dL [facility] Estimated GFR 102 >=60 mL/min/1. 73 m?? [facility] Comment: This patient's estimated GFR was calculated using the 2020 CKD-EPI equation. The estimated GFR can vary from the measured GFR by up to 30% in the absence of rapidly changing kidney function. Assessment of the estimated GFR is not appropriate when creatinine concentrations are rapidly changing. For clinical situations in which a more precise estimate of GFR is necessary, consider alternative methods of GFR estimation such as a 24-hour urine creatinine clearance. Assignment of CKD stage 1-5 for patients with an eGFR near the transition point between stages may be based on clinical assessment of muscle mass and symptoms in addition to eGFR. Blood 02/23/2024 4:24 AM EDT 02/23/2024 4:40 AM EDT Narrative Resulting Agency Comment Spec In Lab Romeo Carpio MD CHEMISTRY ORDERABLES [facility] [place] [address] * Lactate, whole blood, [place] [place] (02/21/2024 9:45 AM EDT) Lactate WB 2.0 0.5 - 2.2 mmol/L [facility] Blood 02/21/2024 9:45 AM EDT 02/21/2024 9:52 AM EDT Narrative Resulting Agency Comment Spec In Lab Zak Farmer MD CHEMISTRY ORDERABLE S [facility] [place] [address] * Lipase (02/21/2024 9:45 AM EDT) Lipase 56 0 - 60 unit/L [facility] Blood 02/21/2024 9:45 AM EDT 02/21/2024 9:52 AM EDT Narrative Resulting Agency Comment Spec In Lab Zak Farmer MD CHEMISTRY ORDERABLE S Performing Organization Address [facility]/ZIP Co de Phone Number [facility] [place] [address] * Amylase (02/21/2024 9:45 AM EDT) Pathologist [facility] Amylase 69 28 - 100 unit/L [facility] Blood 02/21/2024 9:45 AM EDT 02/21/2024 9:52 AM EDT Narrative Resulting Agency Comment Spec In Lab Zak Farmer MD CHEMISTRY ORDERABLE S Performing Organization Address City/[facility] Co de Phone Number [facility] [place] [address] * (ABNORMAL) Hepatic Function Panel (02/21/2024 9:45 AM EDT) Pathologist [facility] Total Protein 5.7(L) 6.1 - 8.0 g/dL [facility] Albumin 3.3 3.2 - 5.2 g/dL [facility] AST 13 0 - 39 unit/L [facility] ALT 16 0 - 55 unit/L [facility] Alk Phos 63 40 - 130 unit/L [facility] Total Bilirubin 0.6 0.2 - 1.3 mg/dL [facility] Bili, Direct 0.2 0.0 - 0.3 mg/dL [facility] Blood 02/21/2024 9:45 AM EDT 02/21/2024 9:52 AM EDT Narrative Resulting Agency Comment Spec In Lab Zak Farmer MD CHEMISTRY ORDERABLE S [facility] [place] [address] * Scan, Peripheral Blood (02/20/2024 4:23 AM EDT) Only the most recent of2 resultswithin the time period is included. Plat Estimate Decreased [facility] RBC Morphology Normal [facility] Blood 02/20/2024 4:23 AM EDT 02/20/2024 4:42 AM EDT Narrative Resulting Agency Comment Spec In Lab Minnie FRENCH HEMATOLOGY CECILIO ALEMAN Performing Organization Address City/[facility]/ZIP Co de Phone Number [facility] [place] [address] * (ABNORMAL) Hemogram (02/20/2024 4:23 AM EDT) Only the most recent of3 resultswithin the time period is included. WBC 12.7(H) 4.0 - 9.5 x10(3)/[facility]AT[facility] RBC 4.26(L) 4.58 - 5.54 x10(6)/[facility] Hemoglobin 12.3(L) 13.7 - 16.5 g/dL [facility] Hematocrit 37.1(L) 40.5 - 48.5 % [facility] MCV 87.1 82.9 - 93.1 [facility]ORY MCH 28.9 27.5 - 32.1 pg [facility] MCHC 33.2 32.0 - 35.7 g/dL [facility] Platelets 88(L) 145 - 357 x10(3)/[facility] LAB[facility]ATORY RDWSD 43.5 36.0 - 45.0 fL [facility] RDWCV 13.7 11.4 - 13.8 % [facility] MPV 10.2 7.6 - 12.9 fL [facility] nRBC % Auto 0.0 % [facility] nRBC Abs Auto 0.000 0.000 - 0.000 x10(3)/[facility] Blood 02/20/2024 4:23 AM EDT 02/20/2024 4:42 AM EDT Narrative Resulting Agency Comment Spec In Lab Minnie FRENCH HEMATOLOGY CECILIO ALEMAN [facility] [place] [address] * (ABNORMAL) Differential, Automated (02/20/2024 4:23 AM EDT) Only the most recent of2 resultswithin the time period is included. Neutrophils % 81.7 % [facility] Neutr Abs (ANC) 10.37(H) 1.70 - 6.10 x10(3)/ L [facility] Lymphocytes % 7.4 % [facility] Lymphocytes Abs 0.9 0.9 - 3.2 x10(3)/[facility] Monocytes % 9.7 % [facility] Monocyte Abs 1.2(H) 0.3 - 0.9 x10(3)/[facility] Eosinophils % 0.1 % [facility] Eosinophils Abs 0.0 0.0 - 0.4 x10(3)/[facility] Basophils % 0.2 % [facility] Basophils Abs 0.0 0.0 - 0.1 x10(3)/[facility] Immature Gran % 0.90 % [facility] Comment: Immature granulocytes(IG's)percentage and absolute count will include metamyelocytes, myelocytes, and promyelocytes. Blood smears from CBCs yielding IG's will be scanned manually for concordance. If this scan disagrees with the automated IG or if promyelocytes are noted, a manual differential will be performed. [place] Gran Abs 0.12(H) 0.00 - 0.04 x10(3)/mc L [facility] Blood 02/20/2024 4:23 AM EDT 02/20/2024 4:42 AM EDT Narrative Resulting Agency Comment Spec In Lab Minnie FRENCH HEMATOLOGY CECILIO ALEMAN Performing Organization Address City/[facility] Co de Phone Number [facility] [place] [address] * POCT Glucose (02/18/2024 8:24 AM EDT) Only the most recent of4 resultswithin the time period is included. POC Glucose 157 65 - 199 mg/dL [facility] Comment: Supplemental ranges: <140 mg/dL before meals <180 mg/dL all other times of the day Blood 02/18/2024 8:24 AM EDT 02/18/2024 8:24 AM EDT Zak Farmer MD POINT OF CARE TEST ORDERABLES Performing Organization Address [facility] Co de Phone Number [facility] [place] [address] * (ABNORMAL) Troponin (02/18/2024 1:40 AM EDT) Troponin-T HS 342(H) <=22 ng/L [facility] Comment: This patient's troponin T concentration was determined using the Armen 5th Generation troponin T assay. The 99th percentile for Troponin T for this test is 14 ng/L for females, and 22 ng/L for males. According to the fourth universal definition of myocardial infarction, the term acute myocardial infarction should be used when there is acute myocardial injury with clinical evidence of acute myocardial ischemia and with detection of a rise and/or fall of cardiac troponin values with at least one value above the 99th percentile and at least one of the following: - Symptoms of myocardial ischemia; - New ischemic ECG changes; - Development of pathological Q waves; - Imaging evidence of new loss of viable myocardium or new regional wall motion abnormality in a pattern consistent with an ischemic etiology; - Identification of a coronary thrombus by angiography or autopsy (not for type 2 or 3 MIs) Serial measurement of troponin and the change in troponin concentration over time (delta) is crucial for the diagnosis of acute myocardial infarction. Guidance on the interpretation of the new 5th Generation Troponin T values and the delta troponin value can be found in the [facility] Test Catalog Troponin - [facility] Test Catalog Reference: Fourth Kittrell Definition of Myocardial Infarction. Journal of the [place] [employer] 2018;72:5953-0558 Blood 02/18/2024 1:40 AM EDT 02/18/2024 1:56 AM EDT Narrative Resulting Agency Comment Spec In Lab Zak Farmer MD CHEMISTRY ORDERABLE S Performing Organization Address City/[facility]/ZIP Co de Phone Number [facility] [place] [address] * Hemoglobin (02/17/2024 5:42 PM EDT) Hemoglobin 13.7 13.7 - 16.5 g/dL [facility] Blood 02/17/2024 5:42 PM EDT 02/17/2024 6:10 PM EDT Narrative Resulting Agency Comment Spec In Lab Zak Farmer MD HEMATOLOGY ORDERABL ES Performing Organization Address [facility] Co de Phone Number [facility] [place] [address] * (ABNORMAL) BLOOD GAS 2 ARTERIAL (02/17/2024 4:18 PM EDT) Only the most recent of9 resultswithin the time period is included. pH Art 7.34(L) 7.35 - 7.45 [facility] pCO2 Art 40 35 - 45 mmHg [facility] pO2 Art 78(L) 85 - 104 mmHg [facility] HCO3 Art 20.8 20.0 - 26.0 mmol/L [facility] BE Art -5.1(L) -3.0 - 3.0 mmol/L [facility] Hgb Blood Gas 14.6 13.7 - 16.5 g/dL [facility] O2HB Art 93.0(L) 94.0 - 97.0 % [facility] COHB Art 0.3 % [facility] Comment: Nonsmokers: 0.5-1.5% COHB Smokers: Variable, but usually less than 10% Toxic: 20-30% COHB Lethal: Greater than 60% COHB METHB Art 0.8 <=1.5 % [facility] Na Whole Blood 136 135 - 145 mmol/L [facility] K Whole Blood 4.1 3.5 - 5.0 mmol/L [facility] Comment: Please note: Patients with WBC >100,000 may have falsely elevated Potassium levels. Contact the Clinical Chemistry Laboratory if there are any questions. ICa Whole Blood 1.10(L) 1.15 - 1.33 mmol/L [facility] Comment: Note: ??Total bilirubin higher than 20 mg/dL may lead to falsely low ionized calcium. CL Whole Blood 105 98 - 107 mmol/L [facility] Gluc Whole Bld 159 65 - 199 mg/dL [facility] Comment:Diabetes: >=200 mg/d L plus symptoms. Lactate WB 1.2 0.5 - 2.2 mmol/L [facility] FIO2 Art 40 % [facility] PF Ratio Art 195 [facility] Blood 02/17/2024 4:18 PM EDT 02/17/2024 4:18 PM EDT Zak Farmer MD CHEMISTRY ORDERABLE S [facility] [place] [address] * XR Chest One View (02/17/2024 1:44 PM EDT) WORKSTATION ID [id number] RAD Anatomical Region Laterality Modality Chest N/A Digital Radiogra phy Impressions 02/17/2024 2:12 PM EDT 1. ??No definite pleural fluid collection or pneumothorax. 2. ??Right IJ Ulysses-Kaila catheter tip terminates in a descending branch of the right pulmonary artery. Suggest catheter retraction. 3. ??Additional support lines and tubes as above. Thank you for letting us participate in the care of this patient. ??If you are a health care provider and have any questions regarding this report, please contact the number below. ??For patients who have questions please contact the health personal care worker that requested your imaging first. ? Electronically signed by: Denzel Hankins MD, [facility] ??([phone]), at 02/17/2024 2:12 PM Narrative 02/17/2024 2:12 PM EDT EXAMINATION: XR CHEST ONE VIEW CLINICAL HISTORY: s/p avr/cabg eval effusions TECHNIQUE: 1 view of the chest COMPARISON: Chest x-ray 01/09/2024, chest CT 02/03/2024 FINDINGS: ET tube tip terminates 5.2 cm above the carlos. Right IJ Ulysses-Kaila catheter tip terminates in a descending branch of the right pulmonary artery. Suggest catheter retraction. Mediastinal drain. Left chest tube. Additional left basilar chest tube versus mediastinal drain superimposing the heart. Epicardial pacing leads. No large pneumothorax, sensitivity limited by supine positioning. No definite pleural effusion. Mild subsegmental atelectasis in the left lung base and right lower lung. Normal cardiomediastinal silhouette. Intact midline sternal wires. Aortic valve prosthesis. No acute osseous abnormality. Procedure Note Denzel Hankins MD - 02/17/2024 EXAMINATION: XR CHEST ONE VIEW CLINICAL HISTORY: s/p avr/cabg eval effusions TECHNIQUE: 1 view of the chest COMPARISON: Chest x-ray 01/09/2024, chest CT 02/03/2024 FINDINGS: ET tube tip terminates 5.2 cm above the carlos. Right IJ Ulysses-Ganzcatheter tip terminates in a descending branch of the right pulmonary artery. Suggest catheter retraction. Mediastinal drain. Left chest tube. Additional leftbasilar chest tube versus mediastinal drain superimposing the heart. Epicardialpacing leads. No large pneumothorax, sensitivity limited by supine positioning. Nodefinite pleural effusion. Mild subsegmental atelectasis in the left lung base andright lower lung. Normal cardiomediastinal silhouette. Intact midline sternalwires. Aortic valve prosthesis. No acute osseous abnormality. IMPRESSION 1. No definite pleural fluid collection or pneumothorax. 2. Right IJ Ulysses-Kaila catheter tip terminates in a descending branch ofthe right pulmonary artery. Suggest catheter retraction. 3. Additional support lines and tubes as above. Thank you for letting us participate in the care of this patient. If youare a health care provider and have any questions regarding this report,please contact the number below. For patients who have questions please contactthe health personal care worker that requested your imaging first. Electronically signed by: Denzel Hankins MD, [facility]([phone]), at 02/17/2024 2:12 PM Zak Farmer MD IMG DX ORDERABLES * (ABNORMAL) Coox2 (02/17/2024 1:21 PM EDT) pO2 Coox 44 mmHg [facility] Hgb Blood Gas 13.1(L) 13.7 - 16.5 g/dL [facility] O2HB Coox 76.4 % [facility] COHB Coox 0.3 % [facility] Comment: Nonsmokers: 0.5-1.5% COHB Smokers: Variable, but usually less than 10% Toxic: 20-30% COHB Lethal: Greater than 60% COHB METHB Coox 0.8 <=1.5 % [facility] Source Coox Mixed Venous [facility] Blood 02/17/2024 1:21 PM EDT 02/17/2024 1:21 PM EDT Zak Farmer MD CHEMISTRY ORDERABLE S Performing Organization Address [facility] Co de Phone Number [facility] [place] [address] * APTT (02/17/2024 12:10 PM EDT) PTT 33 25 - 37 sec [facility] Comment: OR Result called by ?? LOMARL OR Results read back by: ? alondra pagan at 2024-02-17 12:41:48 The PTT is NOT appropriate for heparin monitoring. Use the Anti-Xa level for heparin monitoring (HEP UFH) or LMWH monitoring (HEP LMW). A PTT less than 37 seconds generally indicates adequate hemostasis. Blood 02/17/2024 12:1 0 PM EDT 02/17/2024 12:19 PM EDT Narrative Resulting Agency Comment Spec In Lab Tara York MD HEMATOLOGY ORDERABLE S Performing Organization Address [facility] Co de Phone Number [facility] [place] [address] * (ABNORMAL) Thrombin time (02/17/2024 12:10 PM EDT) Thrombin Time 18(H) 10 - 17 sec [facility] Comment: OR Result called by ?? LOMARL OR Results read back by: ? alondra pagan at 2024-02-17 12:41:48 A prolongation in the thrombin time may be indicative of hypofibrinogenemia or dysfibrinogenemia. The thrombin time will be prolonged, often markedly so, by the presence of heparin or direct thrombin inhibitors (argatroban, bivalirudin, dabigatran) in the specimen. Blood 02/17/2024 12:1 0 PM EDT 02/17/2024 12:19 PM EDT Narrative Resulting Agency Comment Spec In Lab Tara York MD HEMATOLOGY ORDERABLE S Performing Organization Address City/[facility]/ZIP Co de Phone Number [facility] [place] [address] * (ABNORMAL) Prothrombin Time (02/17/2024 12:10 PM EDT) PT 16.7(H) 9.4 - 12.5 sec [facility] Comment: OR Result called by ?? LOMARL OR Results read back by: ? alondra pagan at 2024-02-17 12:41:48 INR 1.5 [facility] Comment: OR Result called by ?? LOMARL OR Results read back by: ? alondra pagan at 2024-02-17 12:41:48 An INR <2.0 indicates adequate procoagulant activity for hemostasis in most patients without underlying bleeding disorders, though the INR may not adequately reflect hemostatic capacity in patients with liver disease and synthetic impairment. The recommended target INR range for therapeutic anticoagulation is 2.0 ? 3.0 for most applications, though lower and higher ranges may be appropriate depending on clinical circumstances. Blood 02/17/2024 12:1 0 PM EDT 02/17/2024 12:19 PM EDT Narrative Resulting Agency Comment Spec In Lab Tara York MD HEMATOLOGY ORDERABLE S Performing Organization Address City/[facility]/ZIP Co de Phone Number [facility] [place] [address] * (ABNORMAL) Fibrinogen (02/17/2024 12:10 PM EDT) Only the most recent of2 resultswithin the time period is included. Fibrinogen 154(L) 200 - 393 mg/dL [facility] Comment: OR Result called by ?? LOMARL OR Results read back by: ? alondra pagan at 2024-02-17 12:41:48 A fibrinogen level >100 mg/dL is adequate for hemostasis in most patients without underlying bleeding disorders. Blood 02/17/2024 12:1 0 PM EDT 02/17/2024 12:19 PM EDT Narrative Resulting Agency Comment Spec In Lab Tara York MD HEMATOLOGY ORDERABLE S Performing Organization Address [facility]/ZIP Co de Phone Number [facility] [place] [address] * (ABNORMAL) Hemoglobin and Hematocrit, blood (02/17/2024 11:04 AM EDT) Hemoglobin 9.6(L) 13.7 - 16.5 g/dL [facility] Hematocrit 28.0(L) 40.5 - 48.5 % [facility] Comment: This result has been called to ALONDRA PAGAN by Eddie López on 02 17 2024 at 1120, and has been read back. Blood 02/17/2024 11:0 4 AM EDT 02/17/2024 11:12 AM EDT Narrative Resulting Agency Comment Spec In Lab Zak Farmer MD HEMATOLOGY ORDERABL ES Performing Organization Address [facility] Co de Phone Number [facility] [place] [address] * (ABNORMAL) Platelet count (02/17/2024 11:04 AM EDT) Platelets 106(L) 145 - 357 x10(3)/mc L [facility] Plat Immature % 1.6 0.0 - 7.4 % [facility] Comment: Limitation of the Immature Platelet Fraction (IPF)-May be less reliable when the platelet count is less than 47r769/uL due to statistical imprecision. The IPF value provides an assessment of the Bone Marrow production status. ??It is useful in differentiating Thrombocytopenia caused by platelet destruction/consumption versus decreased production. It also helps to determine the imminent release of platelets and can be therefore a helpful parameter in Chemotherapy and Bone marrow transplant patients. ELEVATED IPF value: ?? When the bone marrow is in a state of over production such as when increased destruction and consumption are the underlying issue. ?? When the marrow is recovering post chemotherapy or bone marrow transplant. LOW to NORMAL IPF value: ?? When the bone marrow in not responding and is in a decreased state of production. References: [employer] The Clinical Value of the Immature Platelet Fraction (IPF) in Cell Recovery Document Number 10-1143 03/2011 [employer] The Role of the Immature Platelet Fraction (IPF) in the Differential Diagnosis of Thrombocytopenia, Document [id number] V002/15/14 P002/17 Blood 02/17/2024 11:0 4 AM EDT 02/17/2024 11:12 AM EDT Narrative Resulting Agency Comment Spec In Lab Zak Farmer MD HEMATOLOGY ORDERABL ES [facility] [place] [id number] * Surgical Pathology Report (02/17/2024 10:01 AM EDT) FINAL DIAGNOSIS (AP) [id number] ? Location: [facility]; [facility]; The signing pathologist has (i) examined the relevant preparation(s) for the specimen(s) and (ii) rendered or confirmed the diagnosis(es). . ?Surgical Pathology DIAGNOSIS Aortic valve leaflets, excision: Valve leaflets with myxoid degeneration, nodular fibrosis and dystrophic calcifications. Electronically signed by: ?Livier Montoya MD Verified: ??02/24/2024 13:49 ??Pathologist Performed at: ??-[facility] [place], [place] [address] [employer]: Job Brewer MD, FCAP, ??CLIA Certificate: [id number] SPECIMEN(S) SUBMITTED A - Aortic Valve Leaflets, excision (Multiple) CLINICAL INFORMATION CAD SPECIMEN PROCESSING A - Labeled/Fixative: Aortic valve leaflets, fresh. Quantity/Size: Fragments, 2.7 x 2.5 x 0.7 cm. Tissue Description: Fragmented, semi-lunar valve with calcific debris. Number semi-lunar valve cusps identified: Two Average size of cusps: 2.2 x 1.5 x 0.6 cm Free edges: Focally calcified. ??Focally stiff Sinuses: Nodular rogers-yellow calcifications Sections Processing Blocks submitted for decalcification: A1. Food Clerk sections in 1 cassette labeled A1. ??ajw 02/24/2024 1:49 PM EDT [facility] AORTIC STRUCTURE / Unknown 02/17/2024 10:01 AM EDT 02/17/2024 10:01 AM EDT Zak Farmer MD PATHOLOGY/CYTOLOGY ORDERABLES [facility] [place] [address] * Specimen to Pathology (02/17/2024 10:01 AM EDT) AP Specimen 02/17/2024 10:0 1 AM EDT 02/17/2024 10:01 AM EDT Narrative [facility] - 02/17/2024 10:01 AM EDT Specimen requisition ordered. ??Separate Pathology report to follow Zak Farmer MD PATHOLOGY/CYTOLOGY ORDERABLES [facility] [place] [address] * (ABNORMAL) BLOOD GAS 2 VENOUS (02/17/2024 9:34 AM EDT) pH Jose 7.22(Criti marquez) 7.32 - 7.42 [facility] Comment:Noted by woodwind instrument repairer. pCO2 Jose 43 41 - 51 mmHg [facility] Comment:Noted by woodwind instrument repairer. pO2 Jose 57(H) 25 - 40 mmHg [facility] Comment:Noted by woodwind instrument repairer. HCO3 Jose 17.1 mmol/L [facility] Comment:Noted by woodwind instrument repairer. BE Jose -10.6 mmol/L [facility] Comment:Noted by woodwind instrument repairer. Hgb Blood Gas 11.2(L) 13.7 - 16.5 g/dL [facility] Comment:Noted by woodwind instrument repairer. O2HB Jose 86.5 % [facility] Comment:Noted by woodwind instrument repairer. COHB Jose 0.3 % [facility] Comment: Noted by woodwind instrument repairer. Nonsmokers: 0.5-1.5% COHB Smokers: Variable, but usually less than 10% Toxic: 20-30% COHB Lethal: Greater than 60% COHB METHB Jose 0.0 <=1.5 % [facility] Comment:Noted by woodwind instrument repairer. Na Whole Blood 156(H) 135 - 145 mmol/L [facility] Comment:Noted by woodwind instrument repairer. K Whole Blood 5.5(H) 3.5 - 5.0 mmol/L [facility] Comment: Noted by woodwind instrument repairer. Please note: Patients with WBC >100,000 may have falsely elevated Potassium levels. Contact the Clinical Chemistry Laboratory if there are any questions. ICa Whole Blood 1.03(L) 1.15 - 1.33 mmol/L [facility] Comment: Noted by woodwind instrument repairer. Note: ??Total bilirubin higher than 20 mg/dL may lead to falsely low ionized calcium. CL Whole Blood 100 98 - 107 mmol/L [facility] Comment:Noted by woodwind instrument repairer. Gluc Whole Bld 132 65 - 199 mg/dL [facility] Comment: Noted by woodwind instrument repairer. Diabetes: >=200 mg/dL plus symptoms Lactate WB 1.0 0.5 - 2.2 mmol/L [facility] Comment:Noted by woodwind instrument repairer. BGas Source Venous [facility] Blood 02/17/2024 9:34 AM EDT 02/17/2024 9:34 AM EDT Zak Farmer MD CHEMISTRY ORDERABLE S [facility] [place] [address] * Transesophageal Echo/OR (02/17/2024 6:33 AM EDT) Anatomical Region Laterality Modality Cardiac Other 02/17/2024 6:33 AM EDT Narrative 02/17/2024 4:08 PM EDT ? Version: 1 Name: KARLOS GARCIA ?Study Date: 02/17/2024, 6: 33 AM ?Patient Location: OR^OR18^A : 1960 (MM/DD/YYYY) ? Height: 168 cm Age: 63 Years ? Weight: 67 kg Gender: Male ?Conclusions Pre-Bypass: LV size is normal and wall thickness is mildly increased, there are no wall motion abnormalities noted, quantitative LVEF by biplane assessment is 58%. RV size, wall thickness, and function is within normal limits. There is a bicuspid aortic valve with fusion of the right and left coronary cusps and an VITA of 0.8 cm2. There is severe aortic stenosis. Post-Bypass: Global LV and RV function is improved on pharmacologic support. Estimated LVEF is 60%. There is now an Inspiris bioprosthetic valve in the aortic position, it is known to be 23 mm. It is well seated with normal function. It has a peak gradient of 13 mm Hg. There is no evidence of aortic dissection post decannulation. Remainder of the exam is unchanged from prior. EMMA was performed at the surgeon? s request. Prior to the procedure, informed consent was discussed with and obtained from the patient. A time-out was done in the operating room to confirm the patient and procedure. After induction of general anesthesia, endotracheal intubation, and OG decompression, the EMMA probe was placed atraumatically in the esophagus. EMMA was performed for pre- and post-surgical evaluation of cardiac structure and function, valvular pathologies, and aortic injury, and to facilitate separation from CPB. Pre- and post-CPB 2D imaging, Doppler, and color flow evaluation were performed. At the end of the surgical procedure the probe was removed, and no apparent complications were noted. The patient was transported to the ICU with oxygen and full ASA monitoring. All pre-and post-bypass echocardiographic findings were discussed with the surgeon intraoperatively. Pre Procedure Findings Pre Procedure A complete transesophageal echocardiogram was performed in the O.R. for immediate pre-operative and post-operative evaluation of cardiac function and valvular heart disease during cardiac surgery. Standard views were obtained in the transgastric, mid esophageal, and basal planes using a multiplane transesophageal echo probe. Additional evaluation with color flow Doppler and limited spectral Doppler was performed. Images were repeated after the patient was weaned from cardiopulmonary bypass. Satisfactory quality. Informed consent from the patient in writing. The risks and benefits of the procedure were explained in detail to the patient, including but not limited to the risk of aspiration, dysphagia, and esophageal perforation. Patient agreed to proceed. Patient under general endotracheal anesthesia. The probe was passed without difficulty. No complications were noted on placement or removal of the probe. Real time ultrasound guided central line insertion performed for the Right-IJ vein. A linear probe was used with a sterile sheath. The artery and vein were identified prior to vessel puncture. The guidewire was visualized in the RA via EMMA prior to dilation and cannulation. Vital signs monitored throughout. Please see anesthesia record. Pre Left Ventricle Left ventricle is of normal size. Wall thickness is mildly increased. Left ventricular systolic function is normal. The left ventricular ejection fraction is 58% by Herron's biplane. There are no segmental wall motion abnormalities. Pre Right Ventricle The right ventricle is of normal size. Right ventricular wall thickness is normal. Right ventricular systolic function is normal. Pre Atria There is no evidence of a mass or thrombus. Pulsed wave Doppler of the left atrial appendage demonstrates normal emptying velocity. There is no evidence for a patent foramen ovale. Right atrium is of normal size. A catheter is present in the right atrium. Pre Aortic Valve The aortic valve is bicuspid. There is fusion of the left and right cusps. There is trace aortic regurgitation. Aortic leaflet excursion is severely reduced. The dimensionless index is 0.25. The aortic valve area calculated using the continuity equation is 0.8 cm2. There is severe aortic stenosis. Pre Mitral Valve The mitral valve is structurally normal. There is trace mitral regurgitation. There is no evidence of mitral stenosis. Pre Tricuspid Valve The tricuspid valve is structurally normal. There is mild tricuspid regurgitation. 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 Pre Miscellaneous There is no pericardial effusion. Post Procedure Findings Post Procedure Patient is s/p bioprosthetic aortic valve replacement. Patient is s/p 3-vessel CABG. Patient is on pressor support with norepinephrine. Post Left Ventricle Left ventricular systolic function is normal. Post Right Ventricle No changes from pre-bypass exam. Post Aortic Valve There is now an Inspiris bioprosthetic valve in the aortic position, it is known to be 23 mm. It is well seated with normal function. It has a peak gradient of 13 mm Hg. Post Mitral Valve No changes from pre-bypass exam. Post Tricuspid Valve No changes from pre-bypass exam. Post Aorta There is no evidence of aortic dissection after decannulation. MMode/2D Measurements & Calculations EDV (MOD-sp4) index: 27.8 ? asc Aorta Diam: 2.7 cm ?? EDV(MOD-sp4): 48.9 ml ESV(MOD-sp2): 23.3 ml ?EDV(MOD-sp2): 55.8 ml ?? ESV (MOD-sp2) index: 13.2 LVLs ap2: 6.6 cm ?ESV(MOD-sp4): 19.9 ml ?LVLd ap2: 7.4 cm ? LVLs ap4: 6.9 cm LVOT area(traced): 3.1 cm?? Doppler Measurements & Calculations Ao Max: 274.6 cm/sec ? Ao valve mean: 18.7 mmHg ?Ao mean: 204.1 cm/sec Ao valve max: 30.2 mmHg ? LV V1 VTI: 18.7 cm ? Dimensionless index Aov: 0.27 ? MV max P.74 mmHg ? LV Stroke Volume: 58.0 ml ? MV V2 max: 65.9 cm/sec ?LVOT max Velocity: 68.0 cm/sec ? MV mean P.80 mmHg ? MV V2 mean: 40.2 cm/sec I ? WMSI ??= ??1.00 ? % Normal ??= ?? 100% X -Cannot Interpret 1 - Normal ? 2 -Hypokinetic ?? 3 -Akinetic ?4 - Dyskinetic ?5 -Aneurysmal ?Segments ? Size ? 1-2 ? small ? 3-5 ? moderate ? 6-14 ?large ? 15-16 ? diffuse Reading Physician ? Tara York MD ?? 02/17/2024, 4: 08 PM Ordering Physician: TARA YORK Referring Physician: APARNA JORDAN Procedure Note Tara York MD - 02/17/2024 Version: 1 Name: KARLOS GARCIA Study Date: 02/17/2024,6: 33 AM Patient Location:OR^OR18^A : 1960 (MM/DD/YYYY) Height: 168 cm Age: 63 Years Weight: 67 kg Gender: Male Conclusions Pre-Bypass: LV size is normal and wall thickness is mildly increased,there are no wall motion abnormalities noted, quantitative LVEF by biplane assessmentis 58%. RV size, wall thickness, and function is within normal limits. There is abicuspid aortic valve with fusion of the right and left coronary cusps and an AVAof 0.8 cm2. There is severe aortic stenosis. Post-Bypass: Global LV and RV function is improved on pharmacologicsupport. Estimated LVEF is 60%. There is now an Inspiris bioprosthetic valve in theaortic position, it is known to be 23 mm. It is well seated with normal function.It has a peak gradient of 13 mm Hg. There is no evidence of aortic dissectionpost decannulation. Remainder of the exam is unchanged from prior. EMMA was performed at the surgeon? s request. Prior to the procedure,informed consent was discussed with and obtained from the patient. A time-out wasdone in the operating room to confirm the patient and procedure. After inductionof general anesthesia, endotracheal intubation, and OG decompression, the TEEprobe was placed atraumatically in the esophagus. EMMA was performed for pre-and post-surgical evaluation of cardiac structure and function, valvularpathologies, and aortic injury, and to facilitate separation from CPB. Pre- andpost-CPB 2D imaging, Doppler, and color flow evaluation were performed. At the end ofthe surgical procedure the probe was removed, and no apparent complicationswere noted. The patient was transported to the ICU with oxygen and full ASAmonitoring. All pre-and post-bypass echocardiographic findings were discussed with thesurgeon intraoperatively. Pre Procedure Findings Pre Procedure A complete [facility]operative evaluation of cardiac function andvalvular heart disease during cardiac surgery. Standard views were obtained in thetransgastric, mid esophageal, and basal planes using a multiplane transesophageal echoprobe. Additional evaluation with color flow Doppler and limited spectral Dopplerwas performed. Images were repeated after the patient was weaned fromcardiopulmonary bypass. Satisfactory quality. Informed consent from the patient inwriting. The risks and benefits of the procedure were explained in detail to thepatient, including but not limited to the risk of aspiration, dysphagia, andesophageal perforation. Patient agreed to proceed. Patient under generalendotracheal anesthesia. The probe was passed without difficulty. No complications werenoted on placement or removal of the probe. Real time ultrasound guided central line insertion performed for the Right-IJ vein.A linear probe was used with a sterile sheath. The artery and vein were identifiedprior to vessel puncture. The guidewire was visualized in the RA via EMMA prior todilation and cannulation. Vital signs monitored throughout. Please see anesthesiarecord. Pre Left Ventricle Left ventricle is of normal size. Wall thickness is mildly increased.Left ventricular systolic function is normal. The left ventricular ejectionfraction is 58% by Herron's biplane. There are no segmental wall motionabnormalities. Pre Right Ventricle The right ventricle is of normal size. Right ventricular wall thickness isnormal. Right ventricular systolic function is normal. Pre Atria There is no evidence of a mass or thrombus. Pulsed wave Doppler of theleft atrial appendage demonstrates normal emptying velocity. There is no evidence fora patent foramen ovale. Right atrium is of normal size. A catheter is present inthe right atrium. Pre Aortic Valve The aortic valve is bicuspid. There is fusion of the left and right cusps.There is trace aortic regurgitation. Aortic leaflet excursion is severelyreduced. The dimensionless index is 0.25. The aortic valve area calculated using thecontinuity equation is 0.8 cm2. There is severe aortic stenosis. Pre Mitral Valve The mitral valve is structurally normal. There is trace mitralregurgitation. There is no evidence of mitral stenosis. Pre Tricuspid Valve The tricuspid valve is structurally normal. There is mild tricuspidregurgitation. Pre Aorta There is grade 3 (atheroma <= 5mm) atheromatous disease in the descendingthoracic aorta. Pre Miscellaneous There is no pericardial effusion. Post Procedure Findings Post Procedure Patient is s/p bioprosthetic aortic valve replacement. Patient is s/p3-vessel CABG. Patient is on pressor support with norepinephrine. Post Left Ventricle Left ventricular systolic function is normal. Post Right Ventricle No changes from pre-bypass exam. Post Aortic Valve There is now an Inspiris bioprosthetic valve in the aortic position, it isknown to be 23 mm. It is well seated with normal function. It has a peakgradient of 13 mm Hg. Post Mitral Valve No changes from pre-bypass exam. Post Tricuspid Valve No changes from pre-bypass exam. Post Aorta There is no evidence of aortic dissection after decannulation. MMode/2D Measurements & Calculations EDV (MOD-sp4) index: 27.8 asc Aorta Diam:2.7 cm EDV(MOD-sp4): 48.9 ml ESV(MOD-sp2): 23.3 ml EDV(MOD-sp2):55.8 ml ESV (MOD-sp2) index: 13.2 LVLs ap2: 6.6 cmESV(MOD-sp4): 19.9 ml LVLd ap2: 7.4 cm LVLs ap4:6.9 cm LVOT area(traced): 3.1 cm?? Doppler Measurements & Calculations Ao Max: 274.6 cm/sec Ao valvemean: 18.7 mmHg Ao mean: 204.1 cm/sec Ao valve max: 30.2 mmHg LV V1 VTI:18.7 cm Dimensionless index Aov: 0.27 MV maxP.74 mmHg LV Stroke Volume: 58.0 ml MV V2max: 65.9 cm/sec LVOT max Velocity: 68.0 cm/sec MV mean P.80 mmHg MV V2 mean: 40.2 cm/sec I WMSI = 1.00 % Normal = 100% X -Cannot Interpret 1 - Normal 2 -Hypokinetic 3 -Akinetic 4 - Dyskinetic 5 -Aneurysmal Segments Size 1-2 small 3-5 moderate 6-14 large 15-16 diffuse Reading Physician Tara York MD 02/17/2024, 4: 08 PM Ordering Physician: TARA YORK Referring Physician: APARNA JORDAN Tara York MD ECHO ORDERABLES * Scan Doc: Lab (02/17/2024 12:00 AM EDT) Narrative 02/17/2024 12:00 AM EDT Ordered by an unspecified provider. Scanning Provider MEDIA MGR SCAN EXT O RDR/RSLT * Scan Doc: Implantable Devices (02/17/2024 12:00 AM EDT) Narrative 02/17/2024 12:00 AM EDT Ordered by an unspecified provider. Scanning Provider MEDIA MGR SCAN EXT O RDR/RSLT * SCAN DOC: IMPLANTABLE DEVICES (02/17/2024 12:00 AM EDT) Narrative 02/17/2024 12:00 AM EDT Ordered by an unspecified provider. Scanning Provider MEDIA MGR SCAN EXT O RDR/RSLT from Last 3 Months Advance Directives * Attempt Cardiopulmonary Resuscitation - Inpatient (Latest Code Status on File) Date Activated Date Inactivated Comments 02/17/2024 1:02 PM 02/24/2024 1:23 PM Question Answer Comments Code Status decision made by: Patient * Full Code Date Activated Date Inactivated Comments 02/03/2024 12:50 PM 02/17/2024 5:52 AM Question Answer Comments Does patient have capacity to make decision: Yes * Attempt Cardiopulmonary Resuscitation - Inpatient Date Activated Date Inactivated Comments 02/03/2024 11:50 AM 02/03/2024 12:50 PM Question Answer Comments Code Status decision made by: Patient Care Teams Farm Equipment Operator Relationship Specialty Start Date End Date Aparna Jordan APRN PCP - General Family Medicine 10/21/23
--- OUTSIDE RECORDS SUMMARY | 2024-05-06 08:35 | XMS_ITS | Encounter Summary ---
Author Organization [facility] Address [facility] [place] [address] Care Team Providers Care Abstract Checker Name Role Phone Vanessa Christian MAURI Primary Care Provider [phone] Encounter Details Date Type Department Care Team (Latest Contact Info) Description 03/12/2024 1:30 PM EDT - 03/12/2024 11:59 PM EDT Hospital Encounter XRay at [address] [place] [address] Coronary artery disease, unspecified vessel or lesion type, unspecified whether angina present, unspecified whether lime or transplanted heart Discharge Disposition: Home Social History Tobacco Use Types Packs/Day Years Used Date Smoking Tobacco: Former Cigarettes Smokeless Tobacco: Never Comments:Quit 15 + years ago Alcohol Use Standard Drinks/Week Comments Yes 0 (1 standard drink = 0.6 oz pur e alcohol) rare [facility] Utilities Answer Date Recorded In the past 12 months has e [employer], gas, oil, or water [employer] threatened to shut off services in your [...] place to sleep or slept in a [place] facility (including now)? No 02/18/2024 DH IPV Inpatient [...] on file documented as of this encounter Medications at Time of Discharge Medication Sig Dispensed Refills Start Date End Date dorzolamide (Trusopt) 2 % Drops 3 times daily. aspirin EC 81 mg EC (DR) tablet Take 81 mg by mouth daily. multivitamin (THERAGRAN) Tablet Take 1 tablet by mouth daily. atorvastatin (Lipitor) 10 mg tablet Take 10 mg by mouth daily. brimonidine (Alphagan) 0.2 % Drops Place 1 drop into both eyes 2 times daily. tamsulosin (Flomax) 0.4 mg capsule Take 0.4 mg by mouth daily. timoloL (Timoptic) 0.5 % Drops Place 1 drop into both eyes daily. lisinopriL (Zestril) 10 mg tablet Take 1 tablet by mouth daily. 01/29/2024 acetaminophen (Tylenol) 325 mg tablet Take 3 tablets by mouth every 6 hours as needed for Pain. 30 tablet 1 02/24/2024 apixaban (Eliquis) 5 mg tablet Take 1 tablet by mouth 2 times daily. 180 tablet 3 02/24/2024 metoprolol tartrate (Lopressor) 100 mg tablet Take 1 tablet by mouth 2 times daily. 180 tablet 3 02/24/2024 amoxicillin (Amoxil) 500 mg capsule Take 4 capsules by mouth once as needed for up to 1 dose. Please take 1 hour PRIOR to ANY dental procedure 4 capsule 02/24/2024 apixaban (Eliquis) 5 mg tablet Take 1 tablet by mouth 2 times daily. 3 tablet 02/24/2024 metoproloL tartrate (Lopressor) 100 mg tablet Take 1 tablet by mouth 2 times daily. 3 tablet 02/24/2024 documented as of this encounter Plan of Treatment Upcoming Encounters Date Type Department Care Team (Late st Contact Info) Description 05/27/2024 11:00 AM EDT Office Visit Cardiology at [address] [place] [address] [facility] [place] [address] documented as of this encounter Procedures Procedure Name Priority Date/Time Associated Diagnosis Comments XR CHEST PA AND LATERAL Routine 03/12/2024 1:42 PM EDT Coronary artery disease, unspecified vessel or lesion type, unspecified whether angina present, unspecified whether lime or transplanted heart documented in this encounter Results * XR Chest PA & Lateral (Generic) (03/12/2024 1:42 PM EDT) WORKSTATION ID [id number] RAD Anatomical Region Laterality Modality Chest N/A [...] who have questions please contact the health critical care specialist that requested your imaging first. ? Narrative 03/13/2024 8:28 AM EDT EXAMINATION: XR CHEST PA AND LATERAL (GENERIC) CLINICAL HISTORY: s/p cabg eval effusions I25.10, Atherosclerotic heart disease of lime coronary artery without angina pectoris TECHNIQUE: PA [...] eval effusions I25.10, Atherosclerotic heart disease of lime coronary artery withoutangina pectoris TECHNIQUE: PA and [...] patients who have questions please contactthe health critical care specialist that requested your imaging first. Zak Farmer MD IMG DX ORDERABLES documented in this encounter Visit Diagnoses Diagnosis Coronary artery disease, unspecified vessel or lesion type, unspecified whether angina present, unspecified whether lime or transplanted heart documented in this encounter Care Teams Abstract Checker Relationship Specialty Start Date End Date Vanessa Christian APRN PCP - General Family Medicine 10/21/23 documented as of this encounter
--- OUTSIDE RECORDS SUMMARY | 2024-05-06 08:35 | XMS_ITS | Encounter Summary ---
Author Organization [facility] Address [facility] [place] [address] Care Team Providers Care Manager Sales Training Name Role Phone Gino Vanessa Lane DOTSON Primary Care Provider [phone] Encounter Details Date Type Department Care Team (Late st Contact Info) Description 02/24/2024 Orders Only Cardiac Surgery [facility] [place] [phone] Trudi Lester APRN [facility] DR CARDIAC [place] [address] Social History Tobacco Use Types Packs/Day Years Used Date Smoking Tobacco: Former Cigarettes Smokeless Tobacco: Never Comments:Quit 15 + years ago Alcohol Use Standard Drinks/Week Comments Yes 0 (1 standard drink = 0.6 oz pur e alcohol) rare [facility] Utilities Answer Date Recorded In the past 12 months has e [employer], gas, oil, or water [employer] threatened to shut off services in your [...] place to sleep or slept in a care home (including now)? No 02/18/2024 DH IPV Inpatient [...] 11:00 AM EDT Office Visit Cardiology at [address] [place] [address] Neftali Ernandez MD [facility] [place] [address] documented as of this encounter Visit Diagnoses Not on filedocumented in this encounter Care Teams Manager Sales Training Relationship Specialty Start Date End Date Vanessa Christian APRN PCP - General Family Medicine 10/21/23 documented as of this encounter
--- OUTSIDE RECORDS SUMMARY | 2024-05-06 08:35 | XMS_ITS | Encounter Summary ---
Author Organization [facility] Address [facility] [place] [address] Care Team Providers Care Demolition Crane Operator Name Role Phone Vanessa Christian MAURI Primary Care Provider [phone] Encounter Details Date Type Department Care Team (Late st Contact Info) Description 03/12/2024 2:40 PM EDT Office [place] [phone] Zak Farmer MD [facility] [place] [address] Coronary artery disease, unspecified vessel or lesion type, unspecified whether angina present, unspecified whether nondalton or transplanted heart Social History Tobacco Use Types Packs/Day Years Used Date Smoking Tobacco: Former Cigarettes Smokeless Tobacco: Never Comments:Quit 15 + years ago Alcohol Use Standard Drinks/Week Comments Yes 0 (1 standard drink = 0.6 oz pur e alcohol) rare [facility] Utilities Answer Date Recorded In the past 12 months has e [employer], gas, oil, or water [employer] threatened to shut off services in your [...] place to sleep or slept in a detention (including now)? No 02/18/2024 DH IPV Inpatient [...] on file documented as of this encounter Last Filed Vital Signs Vital Sign Reading Time Taken Comments Blood Pressure 128/75 03/12/2024 2:24 PM EDT Pulse 60 03/12/2024 2:24 PM EDT Temperature - - Respiratory Rate - - Oxygen Saturation 98% 03/12/2024 2:24 PM EDT Inhaled Oxygen Concentration - - Weight 62.6 kg (138 lb) 03/12/2024 2:24 PM EDT Height 167.6 cm (5' 6) 03/12/2024 2:24 PM EDT Body Mass Index 22.27 03/12/2024 2:24 PM EDT documented in this encounter Progress Notes * Zak Farmer MD - 03/12/2024 2:40 PM EDT To: MD Vanessa Coles, BUSPERSON Re; Karlos Santa ( 1960) We had an opportunity to meet with Mr. Santa today as a follow-up visit from his AVR/CABG. He presents ambulatory to the office looks and states that he feels quite well. He denies effort dyspnea or angina. His postoperative chest x- ray shows a small left pleural effusion. On examination he has a blood pressure 120/70, his heart rates in the 60s it is sinus by palpation. His midline sternal wound is healed well the underlying sternum is firm to palpation there is no click. There is no diastolic murmur. His chest is clear to auscultation. There is no dependent edema. In summary, Mr. Santa appears to have recovered well following his bypass grafting with aorticvalve replacement. We are going to discharge her from our service at this time and leave him in your care. In the interim thank you much for allowing us to participate in his care and should you require anything further please do not hesitate to contact my office. Best personal regards, Zak Farmer MD [phone] documented in this encounter Plan of Treatment Upcoming Encounters Date Type Department Care Team (Late st Contact Info) Description 05/27/2024 11:00 AM EDT Office Visit Cardiology at [address] [place] [address] Neftali Ernandez MD [facility] [place] [address] documented as of this encounter Procedures Procedure Name Priority Date/Time Associated Diagnosis Comments EKG 12-LEAD Routine 03/12/2024 2:35 PM EDT Coronary artery disease, unspecified vessel or lesion type, unspecified whether angina present, unspecified whether nondalton or transplanted heart documented in this encounter Results * EKG 12 Lead (03/12/2024 2:35 PM EDT) Ventricular rate 59 BPM MUSE SYSTEM Atrial Rate 59 BPM MUSE SYSTEM P-R Interval 190 ms MUSE SYSTEM QRS Duration 92 ms MUSE SYSTEM Q-T Interval 406 ms MUSE SYSTEM QTC Calculated (Bezet) 401 ms MUSE SYSTEM Calculated P Garland -12 degrees MUSE SYSTEM Calculated R Garland 24 degrees MUSE SYSTEM Calculated T Garland 74 degrees MUSE SYSTEM INTERPRETATION Sinus bradycardia T wave abnormality, consider anterior ischemia Abnormal ECG When compared with ECG of 17-FEB-2024 13:24, [place] interval has decreased T wave inversion now evident in Anterior leads Confirmed by Paul Guzman ([id number]) on 03/15/2024 8:36:23 AM MUSE SYSTEM 03/12/2024 2:35 PM EDT 03/15/2024 8:36 AM EDT Zak Farmer MD ECG ORDERABLES MUSE SYSTEM documented in this encounter Visit Diagnoses Diagnosis Coronary artery disease, unspecified vessel or lesion type, unspecified whether angina present, unspecified whether nondalton or transplanted heart documented in this encounter Care Teams Demolition Crane Operator Relationship Specialty Start Date End Date Vanessa Christian, MAURI PCP - General Family Medicine 10/21/23 documented as of this encounter
--- OUTSIDE RECORDS SUMMARY | 2024-05-06 08:35 | XMS_ITS | Encounter Summary ---
Author Organization [facility] Address [facility] [place] [address] Care Team Providers Care Treater Name Role Phone Vanessa Christian MAURI Primary Care Provider [phone] Encounter Details Date Type Department Care Team (Latest Contact Info) Description 03/12/2024 Travel Social History Tobacco Use Types Packs/Day Years Used Date Smoking Tobacco: Former Cigarettes Smokeless Tobacco: Never Comments:Quit 15 + years ago Alcohol Use Standard Drinks/Week Comments Yes 0 (1 standard drink = 0.6 oz pur e alcohol) rare [facility] Utilities Answer Date Recorded In the past 12 months has th e electric, gas, oil, or water company threatened to shut off services in your [...] place to sleep or slept in a group home (including now)? No 02/18/2024 DH IPV [...] 11:00 AM EDT Office Visit Cardiology at [address] [place] [phone] Neftali Ernandez MD [facility] [place] [address] documented as of this encounter Visit Diagnoses Not on filedocumented in this encounter Care Teams Treater Relationship Specialty Start Date End Date Vanessa Christian APRN PCP - General Family Medicine 10/21/23 documented as of this encounter
--- OUTSIDE RECORDS SUMMARY | 2024-05-06 08:35 | XMS_ITS | Encounter Summary ---
[place] [address] Care Team Providers Care Oil Sprayer Name Role Phone Aparna Jordan MAURI Primary Care Provider [phone] Reason for Referral * Diagnostic Test (Routine) - New Request Specialty Diagnoses / Procedures Referred By Contac t Referred To Contact Cardiology Diagnoses S/P AVR Procedures Echocardiogram Transthoracic Neftali Menon PA [facility] [place] [address] [facility] [place] [address] Referral ID Status Reason Start Date Expiration Date Visits Requested Visits Authorized [id number] New Request Specialty Service Requested 02/24/2024 02/23/2025 1 1 * Consultation (Routine) - Authorized Specialty Diagnoses / Procedures Referred By Contac t Referred To Contact Cardiology Diagnoses S/P AVR Zak Graham MD [facility] [place] [address] Cardiac Rehab, [facility] [address] [place] [address] [place] [address] Referral ID Status Reason Start Date Expiration Date Visits Requested Visits Authorized [id number] Authorized Consult, Test & Treat 02/24/2024 08/22/2024 36 36 * Home Health Care (Routine) - Authorized Specialty Diagnoses / Procedures Referred By Sixto mendoza Referred To Contact Diagnoses S/P AVR Zak Graham MD [facility] [place] [address] Referral ID Status Reason Start Date Expiration Date Visits Requested Visits Authorized [id number] Authorized Consult, Test & Treat 02/24/2024 08/22/2024 999 999 Reason for Visit * Auth/Cert (Routine) Specialty Diagnoses / Procedures Referred By Sixto mendoza Referred To Contact Diagnoses CAD (coronary artery disease) CAD Procedures PRO ENDOSCOPY W/VIDEO-ASST VEIN HARVEST, CABG PRO CABG, ARTERIAL, SINGLE PRO CABG, ARTERY-VEIN, TWO ENDOSCOPIC HARVEST VEIN(S) FOR CABG (WRVU 0.31) @CABG, USING ARTERIAL GRAFT;SINGLE ARTERIAL GRAFT (WRVU 33.75) @CABG, TWO VENOUS GRAFTS & ARTERIAL GRAFT (WRVU 7.93) Zak Graham MD [facility] [place] [address] [facility] Referral ID Status Reason Start Date Expiration Date Visits Re quested Visits Authorized [id number] 1 1 Encounter Details Date Type Department Care Team (Latest Contact Info) Description 02/17/2024 5:43 AM EDT - 02/24/2024 11:23 AM EDT Hospital Encounter Heart and Vascular Unit Level 4 [place] [address] Zak Graham MD [facility] [place] [address] S/P AVR (Primary Dx); Aortic valve stenosis, etiology of cardiac valve disease unspecified Discharge Disposition: Home with VNA Social History Tobacco Use Types Packs/Day Years Used Date Smoking Tobacco: Former Cigarettes Smokeless Tobacco: Never Comments:Quit 15 + years ago Alcohol Use Standard Drinks/Week Comments Yes 0 (1 standard drink = 0.6 oz pur e alcohol) rare [facility] Utilities Answer Date Recorded In the [...] place to sleep or slept in a usp (including now)? No 02/18/2024 DH IPV Inpatient [...] Sign Reading Time Taken Comments Blood Pressure 136/81 02/24/2024 7:49 AM EDT Pulse 93 02/24/2024 7:57 AM EDT Temperature 36.7 ??C (98 ??F) 02/24/2024 7:49 AM EDT Respiratory Rate 18 02/24/2024 7:49 AM EDT Oxygen Saturation 88% 02/24/2024 7:53 AM EDT Inhaled Oxygen Concentration - - Weight 66.4 kg (146 lb 6.2 oz) 02/24/2024 4:00 A M EDT Height 167.6 cm (5' 6) 02/18/2024 6:46 AM EDT Body Mass Index 23.63 02/18/2024 6:46 AM EDT documented in this encounter Discharge Summaries * Neftali Menon PA - 02/24/2024 8:59 AM EDT Inpatient - Discharge Summary Patient Name: Viraj Garcia Patient Age: 63 y.o. Birthdate: 1960 Language: Slovenian Race: White Ethnicity: Not nor Admit Date: 02/17/2024 Discharge Date: 02/24/24 Attending Physician: Zak Graham MD Follow-up Recommendations for Providers: Please continue routine management of cardiovascular risk factors including blood pressure, lipids,glucose, etc. Please note any changes to medications. Patient to follow up with PCP, Aparna Jordan APRN, in 1-2 weeks. Patient to follow up with Bandmill Operator, Neftali Ernandez MD , in 2 weeks. Patient to follow up with Cardiac Surgeon, Dr. Zak Graham, with a chest x-ray, EKG, and Echo. Inpatient Provider Contact Information: [facility] Section of Cardiac Surgery [facility] [place] [address] FAX [phone] Discharge Diagnoses (Hospital Problems) Primary Diagnoses: /CAD s/p AVR/CABG x3 Secondary Diagnoses: Active Hospital Problems Diagnosis Aortic stenosis Resolved Hospital Problems No resolved problems to display. 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 Past Surgical History: Procedure Laterality Date PRO CABG, ARTERIAL, SINGLE N/A 02/17/2024 @CABG, USING ARTERIAL GRAFT;SINGLE ARTERIAL GRAFT (WRVU 33.75) performed by Zak Graham MD at [facility] MAIN OR PRO CABG, ARTERY-VEIN, TWO N/A 02/17/2024 @CABG, TWO VENOUS GRAFTS & ARTERIAL GRAFT (WRVU 7.93) performed by Zak Graham MD at [facility] MAIN OR PRO ENDOSCOPY W/VIDEO-ASST VEIN HARVEST, CABG Left 02/17/2024 ENDOSCOPIC HARVEST VEIN(S) FOR CABG (WRVU 0.31) performed by Zak Graham MD at [facility] MAIN OR PRO REPLACEMENT PROSTHETIC AORTIC VALVE OPEN W CARDIOPULMONARY BYPASS HOMOGRF/STENT N/A 02/17/2024 @REPLACE AORTIC VALVE, OPEN, W\CPB, W\PROSTHETIC VALVE (WRVU 41.32) performed by Zak Graham MD at [facility] MAIN OR Prior To Admission Medications Medications Prior to Admission Medication Sig Dispense Refill Last Dose dorzolamide (Trusopt) 2 % Drops 3 times daily. 02/17/2024 chlorhexidine (HIBICLENS) 4 % Liquid Apply topically daily as needed. Shower from head to toe with Chlorhexidine the night before surgery . 02/14/2024 aspirin EC 81 mg EC (DR) tablet Take 81 mg by mouth daily. 02/14/2024 lisinopriL (Zestril) 5 mg tablet Take 5 mg by mouth daily. 02/14/2024 multivitamin (THERAGRAN) Tablet Take 1 tablet by mouth daily. 02/14/2024 atorvastatin (Lipitor) 10 mg tablet Take 10 mg by mouth daily. 02/14/2024 brimonidine (Alphagan) 0.2 % Drops Place 1 drop into both eyes 2 times daily. 02/17/2024 tamsulosin (Flomax) 0.4 mg capsule Take 0.4 mg by mouth daily. 02/14/2024 timoloL (Timoptic) 0.5 % Drops Place 1 drop into both eyes daily. 02/17/2024 mupirocin (Bactroban) 2 % Ointment Apply 1 each topically 2 times daily. Apply a small amount to each nostril twice daily. Begin 5 days prior to the day of surgery. 22 g 0 Updated Allergies/ADRs: No Known Allergies History of Presentation: Mr. Santa is a 63-year-old man with known aortic stenosis that has been followed with serial echocardiography. He recently has begun to experience symptoms of class II exertional dyspnea significantly worse than last year. A recent echo demonstrates severe possibly bicuspid aortic valve stenosis with an aortic valve area of between 0.8 and 0.7 cm??. His LV systolic functions in the 50s. He has a 4 cm aorta on that study. His past medical history and systems reviewed in their entirety the pertinent issues are listed here. He has treated hypertension, he has dyslipidemia. He is not a diabetic. He has had no known previous CVA TIA renal or hepatic insufficiency. He has glaucoma. He used to [employer] until about 15 years ago. He has undergone prior herniorrhaphy. 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 Major Procedures/Operations: 02/17/24 s/p avr/cabgx3 CABG x 3 JOSE->LAD SVG->dRCA SVG->OM1 EVH from LLE AVR with a 23 mm Inspiris Bioprosthesis Hospital Course: Viraj Garcia was admitted to [facility] on 02/17/2024 via the Same Day Program. He was brought to the operating room where Dr. Zak Graham performed a tissue aortic valve replacement and coronary artery bypass grafting. He tolerated the procedure and was brought tothe Cardiovascular Intensive Care Unit for recovery. He initially required the pharmacologic support of intravenous levophed. He was extubated from the ventilator on the day of surgery. All drips were weaned to off. Routine postoperative and home medications were started. Aspirin 325mg daily was started. Statin therapy was continued. He was started on beta blockade and this was optimized. Diuretics were started and he responded appropriately. NOAC for afib. He was transferred to the Intermediate Cardiac Care Unit for continued rehabilitation. All tubes, lines, and epicardial pacing wires were removed without incident. He voided normally after his Naqvi was removed. Atrial Fibrillation likely related to Cardiac Surgery Patient developed atrial fibrillation postop with RVR on several occasions. He received multiple boluses of IV amio in addition to the IV load. Amio was discontinued on POD 4 given refractory nausea issues. Metoprolol was titrated. Eliquis was used as anticoagulation. He is discharged in sinus rhythm. Postoperative Refractory N/V He developed postoperative N/V. This was initially treated with zofran and phenergan without resolution. He was trialled on Reglan thereafter with some improvement in his symptoms. Amio was discontinued as possible side effect is n/v. He struggled with symptoms for several days postop and was started on D5 1/2NS until diet was tolerated. GI labs were all WNL and no other abdominal symptoms/signedwere noted. Nausea resolved and diet was tolerated by discharge. He was seen by Physical Therapy and Cardiac Rehabilitation. Sternal precaution education was provided. His discharge plan at this time is to discharge home with VNA. The remainder of his hospital course was uneventful and by postoperative day #7 he had met all criteria for discharge. Pain was controlled on oral medications. He had walked 5 minutes and gone up and down stairs. He was tolerating a regular diet and had a bowel movement. Vital Signs at Discharge: Last set of vitals: BP 136/81 (BP Location (NBP): Right arm) Pulse 93 Temp 36.7 ??C (98 ??F) (Oral) Resp 18 Ht 167.6 cm (5' 6) Wt 66.4 kg (146 lb 6.2 oz) SpO2 (!) 88% BMI 23.63 kg/m?? Patient Vitals for the past 168 hrs: Weight 02/24/24 0400 66.4 kg (146 lb 6.2 oz) 02/23/24 0700 65.1 kg (143 lb 9.6 oz) 02/22/24 0611 64.9 kg (143 lb) 02/21/24 0331 65.1 kg (143 lb 9.6 oz) 02/20/24 0355 66.1 kg (145 lb 12.8 oz) 02/19/24 0711 63 kg (138 lb 12.8 oz) 02/18/24 0600 68.6 kg (151 lb 3.8 oz) Current weight: 66.4 kg Admit/Preop weight: 66.5 kg Pertinent physical exam findings prior to discharge: Physical Exam: General: no acute distress, in bed Pulm: non-labored on room air Cardiac: regular, SR/ST on tele Vascular: warm, no LE edema Abd: non-tender, non-distended MSKL: sternum stable Neuro: A&Ox4, no focal deficits Integ: incisions clean, dry, intact Tubes/Lines/Drains: PIVs Important Studies and Lab Data: Lab Results Component Value Date WBC 12.7 (H) 02/20/2024 RBC 4.26 (L) 02/20/2024 HGB 12.3 (L) 02/20/2024 HCT 37.1 (L) 02/20/2024 PLATELET 88 (L) 02/20/2024 Recent Labs 02/17/24 1210 INR 1.5 Lab Results Component Value Date NA 138 02/23/2024 K 4.0 02/24/2024 CL 101 02/23/2024 CO2 26 02/23/2024 BUN 18 02/23/2024 CREATININE 0.71 (L) 02/23/2024 Pending Studies and Lab Data: none Immunizations Given this Hospitalization: There is no immunization history on file for this patient. Smoking Status at Discharge: Social History Tobacco Use Smoking Status Former Types: Cigarettes Smokeless Tobacco Never Tobacco Comments Quit 15 + years ago STS Data Medications: Pre-operative beta eric? Not given Discharge beta eric? Given Discharge lipid therapy? Given Discharge anti-platelet therapy? Given Discharge KEVYN or ARB restarted? Not indicated Discharge Medications: Your Medications New Medications Dose Details acetaminophen 325 mg tablet Commonly known as: Tylenol Take 3 tablets by mouth every 6 hours as needed for Pain. 975 mg Quantity: 30 tablet Refills: 1 amoxicillin 500 mg capsule Commonly known as: Amoxil Take 4 capsules by mouth once as needed for up to 1 dose. Please take 1 hour PRIOR to ANY dental procedure 2,000 mg Quantity: 4 capsule Refills: 0 apixaban 5 mg tablet Commonly known as: Eliquis Take 1 tablet by mouth 2 times daily. 5 mg Quantity: 180 tablet Refills: 3 metoprolol tartrate 100 mg tablet Commonly known as: Lopressor Take 1 tablet by mouth 2 times daily. 100 mg Quantity: 180 tablet Refills: 3 Continued medications, unchanged Dose Details aspirin EC 81 mg EC (DR) tablet Take 81 mg by mouth daily. 81 mg Refills: 0 atorvastatin 10 mg tablet Commonly known as: Lipitor Take 10 mg by mouth daily. 10 mg Refills: 0 brimonidine 0.2 % Drops Commonly known as: Alphagan Place 1 drop into both eyes 2 times daily. 1 drop Refills: 0 dorzolamide 2 % Drops Commonly known as: Trusopt 3 times daily. Refills: 0 multivitamin Tablet Commonly known as: THERAGRAN Take 1 tablet by mouth daily. 1 tablet Refills: 0 tamsulosin 0.4 mg capsule Commonly known as: Flomax Take 0.4 mg by mouth daily. 0.4 mg Refills: 0 timoloL 0.5 % Drops Commonly known as: Timoptic Place 1 drop into both eyes daily. 1 drop Refills: 0 STOPPED Medications chlorhexidine 4 % Liquid Commonly known as: HIBICLENS lisinopriL 5 mg tablet Commonly known as: Zestril mupirocin 2 % Ointment Commonly known as: Bactroban Instructions Given to Patient at Discharge: Cardiac Surgery Discharge Instructions: Call your doctor if: You have a fever of greater than 101 degrees, shaking chills, if you develop redness or drainage from your incision sites, or if you have questions. Please call your surgeon's office if you have any discharge or drainage from your chest incision. Your surgeon, Dr. Zak Graham and/or the Cardiac Surgery Physician Crime Scene Evidence Technician Team may be reached at . Antibiotic prophylaxis: You will need to take antibiotics prior to many invasive tests and treatments, such as dental cleaning, which should be done every 6 months. Your primary care physician or your dentist can prescribe this medication. A one time prescription has been ordered for you today. Anyfuture refills should go through your PCP or Dentist. Please refer to the card with the [place] [employer] Guidelines for more information. You have been provided with a copy of this card. Good dental care is important for your overall health. We recommend waiting ~3 months from your surgery date before returning to your dentist except in cases of emergency. Weight: Weigh yourself daily. Please call the office if you notice increasing weight, increasing fluid retention (edema), and/or SOB. Sternal (breast bone) precautions: No lifting greater than 7-10 pounds; no pushing or pulling with upper extremities; no excessive chest stretching for the first 4 weeks. Further instructions will begiven to you at your follow-up appointment. Activity level: Walk three times a day. You should continue to increase your walks by 1-2 minutes each day. It is expected that you will be walking 20-30 minutes twice a day within 3-4 weeks after discharge to home. Rest between activities and after meals. Use common sense, don't exhaust yourself. Biking: You may use a stationary bicycle whenever you are comfortable enough to permit this. Tighten the resistance slightly. Increase the amount of time on the bicycle as you would do for your walks, a minute or two each day. No biking outside until after your return appointment with Dr. Zak Graham. You may use a [place] or treadmill but avoid any pulling motion with the arms. Home activities: You may do light housework, e.g. dusting, setting the table, washing dishes, preparing a meal. Light carpentry and gardening are allowed. Avoid trying to open tight jars and stuck windows. No vacuuming, mopping, raking, shoveling, digging or hoeing until after your return visit with the surgeon. Sexual activity: You may engage in sexual activity when you feel ready. Use a position that protects your sternum (breastbone). Do not have your partner lie on your chest. Stairs: There are no restrictions on stair climbing. Use common sense. Don't exhaust yourself. Activities outside the home: After the first week home you may go out to dinner, visit friends, go to a movie, go to anabaptism, etc. Heavy activities: No hunting, skiing, jogging, snow shoveling, snowmobiling, lawn mowing, swimming,golf or tennis until after your return appointment with the surgeon. Do not ride motorcycles, ATV'stractors or horses. Avoid the use of a rifle with kickback against the shoulder for six months. Sleep: Try to establish normal sleep patterns. Long naps during the day may make it hard for you tosleep at night. Use the pain medication at bedtime for the first week at home. Smoking: It is very important that you not smoke after surgery. Smoking cessation education was provided as appropriate. If you need further assistance with this please call and you will be referred to a smoking cessation specialist. Medications: Take only those medications listed on your discharge information. Keep your pain undercontrol so you can be active, do your coughing and breathing exercises and sleep. Contact us if thepain medication isn't working for you. Do not take any herbal preparations until after you return to see the surgeon. Special Physician Instructions: DO NOT USE ANY IBUPROFEN (ADVIL, MOTRIN, ETC) OR OTHER NSAIDS (NONSTEROIDAL ANTI-INFLAMMATORY DRUGS) FOR A TOTAL OF 10 DAYS AFTER SURGERY. PLEASE CONTACT THE CARDIOTHORACIC SURGERY OFFICE IF YOU HAVE QUESTIONS ABOUT WHICH DRUGS YOU SHOULD NOT USE. . Diet: You should follow a regular diet until your appetite returns to normal. At that point in timeyou should resume a low fat, low cholesterol, [place] [employer] Diet. Driving: No driving until cleared by your surgeon. Avoid long trips if possible. If you must go on a long trip, stop the car and walk every hour. Shower/Bath: You may shower daily. No baths, soaking, or swimming until cleared by your surgeon. Wound care: Wash your incisions daily with soap and rinse well, pat dry. Assess for any signs of infection such as increased redness, pain, warmth or drainage. Please call your surgeon's office if you have any discharge or drainage from your chest incision. If there is a lot of swelling, apply kevyn wraps during the day and remove at bedtime. Elevate your legs when you are sitting. MEDICATION REFILL REQUESTS - Please note that Cardiac Surgery will not maintain regular refill requests for your medications as these can change during and after your recovery while being managed by your PCP and/or Bandmill Operator. For future medication refills, please refer to your PCP and/or Bandmill Operator after your discharge from our service. Thank you REMOVE CHEST TUBE SUTURES ON OR AFTER 03/02/24 Home oxygen therapy: N/A Follow up appointments: You should follow up with your PCP, Aparna Jordan APRN, in 1-2 weeks. Our office will schedule an appointment with your Bandmill Operator, Neftali Ernandez MD , in 2 weeks. You have an appointment with your Cardiac Surgeon, Dr. Zak Graham, 4 weeks with a chest x-ray, EKG, and Echo before your appointment. Cardiac Rehabilitation: Viraj Garcia was seen regarding participation in the outpatient Phase 2Cardiac Rehabilitation at [facility]. The patient agrees to a referral to this program. The referral will be sent at discharge and the patient should be contacted by the Program within 1- 2 weeks from discharge. Future Appointments and Orders Future Orders Complete By Expires Echocardiogram Transthoracic [19389 CPT(R)] 03/26/2024 09/25/2024 Process Instructions: Scheduling Instructions: Questions: Where will study be performed?: [facility] Does the patient have Congenital Heart Disease?: Does patient require sedation?: Sedation rationale: XR Chest PA & Lateral (Generic) [08447 26250 Custom] 03/26/2024 09/25/2024 Process Instructions: Scheduling Instructions: Questions: Portable exam?: Reason for exam and clinical history: s/p avr/cabg Clinical information / jerome questions for radiologist: Stat read required?: Date of injury if applicable: Requested Time: Where will study be performed?: [facility] Radiology Referral to Cardiac Rehab [PRL271 Custom] As directed Process Instructions: If no progress note charted, please enter Clinical details in comments. Scheduling Instructions: Questions: My question or request is: s/p AVR/CABG. Cardiac rehab at [facility]. Referral to Home Health [REF34 Custom] As directed Process Instructions: If no progress note charted, please enter Clinical details in comments. Scheduling Instructions: Comments: Please evaluate Viraj Garcia for admission to Home Health. [address] Phone Number: Date of : 1960 Inpatient DOCUMENTATION FOR VNA SERVICES (INCLUDING THOSE PATIENTS WITH MEDICARE COVERAGE REQUIRING HOME VNA SERVICES AND/OR HOSPICE SERVICES) PATIENT'S LOCATION: Viraj Garcia [address] [email or web address] [phone] Door Maker's Name: self/family In discussion with the attending physician, it is certified that this patient is under their care and that they, or a Nurse Practitioner, or Physician Crime Scene Evidence Technician who is working directly with them, hada face to face encounter that meets the physician face to face encounter requirements with this patient on 02/24/24 The encounter with the patient was in whole, or in part, for the following medical condition, whichis the primary reason for home health care services: s/p CABG x 3. In discussion with the provider, it is certified that, based on their findings, the following services are medically necessary for home health services. To provide the following care/treatments with the clinical findings supporting the need for services as follows: HOME HEALTH AGENCY: [facility] [address] [place] [address] RN orders: Cardiopulmonary assessment, incisional assessment, assess vital signs, assessment of rehab progress, medication management and effectiveness, home safety evaluation. Chest Tube Suture Removal Date 03/10/24 PT ORDERS: Continue rehab for endurance, gait stability and strength with mobility and transfers. Home safety evaluation. Home exercise program if appropriate. Start of Care Date:please admit pt 24-48 hours from discharge if possible IF unable to admit duringthat timeframe, please admit as anticipated SOC on within 72 hours post-discharge 02/24/24 SPECIAL INSTRUCTIONS: For any follow up questions, needs, or issues please call the Cardiology Office at [phone] FOR MEDICARE ONLY: (please delete this section if not Medicare) In discussion with the attending physician, it is certified that the clinical findings support thatthis patient is homebound i.e. absences from home require considerable and taxing effort due to: Restricted mobility and poor activity tolerance due to recent cardiac surgery. Patient requires assistance of another person to leave the home. Home Health agencies which cover the area of patient's residence have been reviewed, either verbally or in writing, and patient/family have chosen the agency as noted. In discussion with the attending physician, it is certified that the clinical findings support thatthis patient is homebound because absences from home require considerable and taxing effort due to:Unable to ambulate community surfaces or distances unassisted due to pain, lower extermity weaknessor decreased balance and risk for falls Unsteady gait, poor balance, requiring assistive devices and/or assistance of another. Please note that any additional orders needs or changes will need to be obtained from this patient's PCP: Aparna Reed APRN [address] / [place] [address] . All VNA agencies which cover the area of patient's residence have been reviewed, either verbally or in writing, and patient/family have chosen the home health care agency noted. Questions: Disciplines Requested: Nursing Physical Therapy Arrangements for VNA/home care: As above. Signed: NEFTALI MENON PA-C [facility] Section of Cardiac Surgery [facility] [place] [id number] FAX [phone] Date: 02/24/2024 CC: Aparna Jordan, MAURI Jordan, Aparna Sherman APRN [address] [place] [address] documented in this encounter Discharge Instructions * Patient Instructions* Neftali Menon PA - 02/24/2024 8:52 AM EDT Instructions Given to Patient at Discharge: Cardiac Surgery Discharge Instructions: Call your doctor if: You have a fever of greater than 101 degrees, shaking chills, if you develop redness or drainage from your incision sites, or if you have questions. Please call your surgeon's office if you have any discharge or drainage from your chest incision. Your surgeon, Dr. Zak Graham and/or the Cardiac Surgery Physician Crime Scene Evidence Technician Team may be reached at . Antibiotic prophylaxis: You will need to take antibiotics prior to many invasive tests and treatments, such as dental cleaning, which should be done every 6 months. Your primary care physician or your dentist can prescribe this medication. A one time prescription has been ordered for you today. Anyfuture refills should go through your PCP or Dentist. Please refer to the card with the [place] [employer] Guidelines for more information. You have been provided with a copy of this card. Good dental care is important for your overall health. We recommend waiting ~3 months from your surgery date before returning to your dentist except in cases of emergency. Weight: Weigh yourself daily. Please call the office if you notice increasing weight, increasing fluid retention (edema), and/or SOB. Sternal (breast bone) precautions: No lifting greater than 7-10 pounds; no pushing or pulling with upper extremities; no excessive chest stretching for the first 4 weeks. Further instructions will begiven to you at your follow-up appointment. Activity level: Walk three times a day. You should continue to increase your walks by 1-2 minutes each day. It is expected that you will be walking 20-30 minutes twice a day within 3-4 weeks after discharge to home. Rest between activities and after meals. Use common sense, don't exhaust yourself. Biking: You may use a stationary bicycle whenever you are comfortable enough to permit this. Tighten the resistance slightly. Increase the amount of time on the bicycle as you would do for your walks, a minute or two each day. No biking outside until after your return appointment with Dr. Zak Graham. You may use a [place] or treadmill but avoid any pulling motion with the arms. Home activities: You may do light housework, e.g. dusting, setting the table, washing dishes, preparing a meal. Light carpentry and gardening are allowed. Avoid trying to open tight jars and stuck windows. No vacuuming, mopping, raking, shoveling, digging or hoeing until after your return visit with the surgeon. Sexual activity: You may engage in sexual activity when you feel ready. Use a position that protects your sternum (breastbone). Do not have your partner lie on your chest. Stairs: There are no restrictions on stair climbing. Use common sense. Don't exhaust yourself. Activities outside the home: After the first week home you may go out to dinner, visit friends, go to a movie, go to anabaptism, etc. Heavy activities: No hunting, skiing, jogging, snow shoveling, snowmobiling, lawn mowing, swimming,golf or tennis until after your return appointment with the surgeon. Do not ride motorcycles, ATV'stractors or horses. Avoid the use of a rifle with kickback against the shoulder for six months. Sleep: Try to establish normal sleep patterns. Long naps during the day may make it hard for you tosleep at night. Use the pain medication at bedtime for the first week at home. Smoking: It is very important that you not smoke after surgery. Smoking cessation education was provided as appropriate. If you need further assistance with this please call and you will be referred to a smoking cessation specialist. Medications: Take only those medications listed on your discharge information. Keep your pain undercontrol so you can be active, do your coughing and breathing exercises and sleep. Contact us if thepain medication isn't working for you. Do not take any herbal preparations until after you return to see the surgeon. Special Physician Instructions: DO NOT USE ANY IBUPROFEN (ADVIL, MOTRIN, ETC) OR OTHER NSAIDS (NONSTEROIDAL ANTI-INFLAMMATORY DRUGS) FOR A TOTAL OF 10 DAYS AFTER SURGERY. PLEASE CONTACT THE CARDIOTHORACIC SURGERY OFFICE IF YOU HAVE QUESTIONS ABOUT WHICH DRUGS YOU SHOULD NOT USE. . Diet: You should follow a regular diet until your appetite returns to normal. At that point in timeyou should resume a low fat, low cholesterol, [place] [employer] Diet. Driving: No driving until cleared by your surgeon. Avoid long trips if possible. If you must go on a long trip, stop the car and walk every hour. Shower/Bath: You may shower daily. No baths, soaking, or swimming until cleared by your surgeon. Wound care: Wash your incisions daily with soap and rinse well, pat dry. Assess for any signs of infection such as increased redness, pain, warmth or drainage. Please call your surgeon's office if you have any discharge or drainage from your chest incision. If there is a lot of swelling, apply kevyn wraps during the day and remove at bedtime. Elevate your legs when you are sitting. MEDICATION REFILL REQUESTS - Please note that Cardiac Surgery will not maintain regular refill requests for your medications as these can change during and after your recovery while being managed by your PCP and/or Bandmill Operator. For future medication refills, please refer to your PCP and/or Bandmill Operator after your discharge from our service. Thank you REMOVE CHEST TUBE SUTURES ON OR AFTER 03/02/24 Home oxygen therapy: N/A Follow up appointments: You should follow up with your PCP, Aparna Jordan APRN, in 1-2 weeks. Our office will schedule an appointment with your Bandmill Operator, Neftali Ernandez MD , in 2 weeks. You have an appointment with your Cardiac Surgeon, Dr. Zak Graham, 4 weeks with a chest x-ray, EKG, and Echo before your appointment. Cardiac Rehabilitation: Viraj Garcia was seen regarding participation in the outpatient Phase 2Cardiac Rehabilitation at [facility]. The patient agrees to a referral to this program. The referral will be sent at discharge and the patient should be contacted by the Program within 1- 2 weeks from discharge. Arrangements for VNA/home care: As above. documented in this encounter Medications at Time of Discharge [...] tablet 02/24/2024 documented as of this encounter Progress Notes * Jazlyn Maldonado RN - 02/24/2024 10:28 AM EDT Pt A/Ox4. SR on tele, see saved tele strips. Incisional pain managed with scheduled Tylenol. Had a shower today. Daughter at bedside. Discharge paperwork reviewed with patient and daughter. Telemetrydiscontinued. Ivs removed. Pt discharged home with renata. * Neftali Menon PA - 02/24/2024 8:56 AM EDT Cardiac Surgery Progress Note Viraj Garcia is a 63 y.o. male with and CAD who is 7 Days Post-Op AVR/CABGx3. PMH of , CAD, HTN, HLD, former smoker. Interval: Rates improved last 24 hours with BB increase. S: Doing ok. No complaints. Breathing ok. Tru diet. Ambulating. Pain tolerable on tylenol. Denies n/v, fever, chills, SOB, CP, abd pain. O: Temp: [36.6 ??C (97.8 ??F)-36.9 ??C (98.4 ??F)] Heart Rate: [77-99] Resp: [16-20] BP: (114-154)/(73-89) SpO2: [88 %-98 %] Heart Rate from SpO2: [45 bpm-95 bpm] 02/22 0701 - 02/23 0700 In: 1110 [P.O.:1110] Out: 2300 [Urine:2300] Admit weight: 68.6 kg Current weight: Weight: 66.4 kg (146 lb 6.2 oz) Physical Exam: General: no acute distress, in bed Pulm: non-labored on room air Cardiac: regular, SR/ST on tele Vascular: warm, no LE edema Abd: non-tender, non-distended MSKL: sternum stable Neuro: A&Ox4, no focal deficits. CN intact. Integ: incisions clean, dry, intact Tubes/Lines/Drains: PIVs Assessment/Plan: 63 y.o. male 7 Days Post-Op AVR/CABGx3 S/P AVR/CABGx3 ASA 81 daily (on eliquis) Atorvastatin 10 Metoprolol 100 BID No lasix, baseline wt Postoperative refractory N/V Having BMs Replete K PRN Bowel regimen Postop AF related to cardiac surgery Amio stopped given refractory nausea Metop 100 BID Eliquis 5 BID HTN Metoprolol 100 BID Hold home lisinopril for now, add back when indicated Glaucoma Home eye drops BPH Home Flomax 0.4 Voiding Dispo: Floor, full code. D/C Home Discussed with attending surgeon on rounds this morning. 02/24/2024 Between the hours of 1800 - 0600 and on the weekends please page [phone]. * Eric Barahona PA - 02/23/2024 9:27 AM EDT Cardiac Surgery Progress Note Viraj Garcia is a 63 y.o. male with and CAD who is 6 Days Post-Op AVR/CABGx3. PMH of , CAD, HTN, HLD, former smoker. Interval: Nausea resolved, tolerating diet Kept IVF yesterday Episodes of AFlutter to 140s, metop increased S: Nausea resolved, eating well. Eager to go home O: Temp: [36.4 ??C (97.6 ??F)-36.9 ??C (98.4 ??F)] Heart Rate: [81-134] Resp: [16-18] BP: (100-146)/(71-89) SpO2: [95 %-99 %] Heart Rate from SpO2: -- 02/21 0701 - 02/22 0700 In: 1465 [P.O.:860; I.V.:605] Out: 1150 [Urine:1150] Admit weight: 68.6 kg Current weight: Weight: 65.1 kg (143 lb 9.6 oz) Physical Exam: General: no acute distress, in bed Pulm: non-labored on room air Cardiac: regular, SR/ST on tele Vascular: warm, no LE edema Abd: non-tender, non-distended MSKL: sternum stable Neuro: A&Ox4, no focal deficits Integ: incisions clean, dry, intact Tubes/Lines/Drains: PIVs Assessment/Plan: 63 y.o. male 6 Days Post-Op AVR/CABGx3 S/P AVR/CABGx3 ASA 81 daily (on eliquis) Atorvastatin 10 Metoprolol increase to 100 BID No lasix, baseline wt Postoperative refractory N/V Phenergan and zofran stopped Reglan trial Amio stopped, symptoms resolved D/c IVF D/c daily BMP Replete K PRN Bowel regimen Postop AF related to cardiac surgery Amio stopped given refractory nausea Metop 100 BID Start diltiazem infusion if needed for rate control, holding for now Eliquis 5 BID HTN Metoprolol 100 TID Hold home lisinopril for now, add back when indicated Glaucoma Home eye drops BPH Home Flomax 0.4 Voiding Dispo: Floor, full code Discussed with attending surgeon on rounds this morning. 02/23/2024 Between the hours of 1800 - 0600 and on the weekends please page [phone]. * Tiffanie Owens - 02/22/2024 2:48 PM EDT Physical Therapy Note 3 Patient profile: Viraj Garcia is a 63 y.o. male with and CAD who is 2 Days Post-Op AVR/CABGx3. PMH of , CAD, HTN, HLD, former smoker. Interval History: Amiodarone stopped, persistent nausea Unable to take much PO, started on IVF HR up to 140s this AM when getting to the chair Started on eliquis for AF Social History: Pt lives alone in a 1 level home with 3 stairs to enter. Pt reports his dtr is coming from [place] to stay upon d/c for 10 days. 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 He drives. He works Precautions/Special Considerations: STERNAL PRECAUTIONS (No pushing, pulling or lifting >8-10lbs); at risk to fall Mobility and Positioning Recommendations: Ambulate 3-4x/daily with nursing with rolling walker and 1 assist; chair follow OOB in chair for all meals Subjective: I am doing great! Objective: Patient seen for physical therapy and demonstrated the following: Pain: No c/o pain during session Vital Signs: SpO2 98%, HR 100's, BP 100/79 Patient ambulating in hallway with RN when PT arrived 300' with FWW, no LOB Ambulated 50' without FWW, no LOB, slow pace Sit <> stand transfers: Supervision, able to maintain precautions Bed mobility: Supervision with verbal cues for sequecing Stairs: 3 with 1 rail for balance and supervision Pt left in bedside recliner chair alarm on, all needs met following visit. Education: Pt regarding precautions, safety, mobility Assessment: Viraj Garcia was seen today for physical therapy treatment session for continuationof POC. Patient demonstrated safe independence with all mobility. He knows/understands his precautions. Plans to return home with daughter when medically ready. Pt will benefit from ongoing therapeutic interventions to achieve therapy goals. Inpatient Physical Therapy Plan: Monitor No further Physical Therapy needs identified. Discharge Recommendations: Based on current findings- home with home health (daughter coming to stay with patient) Consult Recommendations: No other consults recommended at this time. Equipment needs: None Physical Therapy Goals: All goals met 02/22/24 Goals to be achieved by 02/22/24. Pt will maintain sternal precautions without cues with all transfers Pt will perform supine to sit transfers with supervision to/from flat bed, log roll technique Pt will perform sit><stand transfers with supervision with least restrictive device Pt will perform bed to chair transfers with supervision with least restrictive device Pt will ambulate at least 160' with supervision with least restrictive device Pt will perform 3 step with rail, LRAD and supervision Time IN / OUT: [id number] Total Time: 30 minutes; TEFx2 Tiffanie Owens Pager: [phone] Physical Therapy Inpatient Rehabilitation Department * Romeo Carpio MD - 02/22/2024 6:31 AM EDT Cardiac Surgery Progress Note Viraj Garcia is a 63 y.o. male with and CAD who is 5 Days Post-Op AVR/CABGx3. PMH of , CAD, HTN, HLD, former smoker. Interval: Amiodarone stopped, persistent nausea Unable to take much PO, started on IVF HR up to 140s this AM when getting to the chair Started on eliquis for AF S: Feeling tired, no vomiting, but persistent nausea, unable to eat O: Temp: [36.4 ??C (97.5 ??F)-37.1 ??C (98.8 ??F)] Heart Rate: [78-143] Resp: [16-19] BP: (106-137)/(62-87) SpO2: [91 %-100 %] Heart Rate from SpO2: -- 02/20 0701 - 02/21 0700 In: 833.3 [P.O.:260; I.V.:573.3] Out: 850 [Urine:850] Admit weight: 68.6 kg Current weight: Weight: 64.9 kg (143 lb) Physical Exam: General: no acute distress, in bed Pulm: non-labored on room air Cardiac: Irregular, AF on monitor Vascular: warm, trace LE edema Abd: non-tender, non-distended MSKL: sternum stable Neuro: A&Ox4, no focal deficits Integ: incisions clean, dry, intact Tubes/Lines/Drains: PIVs Assessment/Plan: 63 y.o. male 5 Days Post-Op AVR/CABGx3 S/P AVR/CABGx3 ASA 325 daily Atorvastatin 10 Metoprolol increase to 50 BID Lasix on hold given taking in little PO Postoperative refractory N/V Phenergan and zofran stopped Reglan trial Stopping amio given side effect of nausea Hold lasix given little PO intake, D5 1/2 NS 50cc/hr Daily BMP while on IVF Replete K PRN Bowel regimen Postop AF related to cardiac surgery Stopping amio given refractory nausea Metop 50 BID Start diltiazem infusion if needed for rate control, holding for now Eliquis 5 BID HTN Metoprolol 25 TID Hold home lisinopril for now, add back when indicated Glaucoma Home eye drops BPH Home Flomax 0.4 Voiding Dispo: Floor, full code Discussed with attending surgeon on rounds this morning. 02/22/2024 Between the hours of 1800 - 0600 and on the weekends please page [phone]. * Kelley Hinson PTA - 02/21/2024 10:15 AM EDT Physical Therapy Note 2 Patient profile: Viraj Garcia is a 63 y.o. male with and CAD who is 2 Days Post-Op AVR/CABGx3. PMH of , CAD, HTN, HLD, former smoker. Interval History: Per last cardiac surgery note on 02/21/2024 AF for 6 hours yesterday morning, amio IV resumed In an out of AF again overnight, repeat bolus x1 Hemodynamically stable Ongoing nausea issues Social History: Pt lives alone in a 1 level home with 3 stairs to enter. Pt reports his dtr is coming from [place] to stay upon d/c for 10 days. 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 He drives. He works Precautions/Special Considerations: STERNAL PRECAUTIONS (No pushing, pulling or lifting >8-10lbs); at risk to fall Mobility and Positioning Recommendations: Ambulate 3-4x/daily with nursing with rolling walker and 1 assist; chair follow OOB in chair for all meals Subjective: I just don't feel up to it today Objective: Patient seen for physical therapy and demonstrated the following: Pain: Pt had no overt c/o pain throughout session Vital Signs: At Rest With Activity SpO2 (RA) 97% 100% BP (MAP) 114/75 (86) mmHg 102/68 (80) mmHg HR 75bpm 80bpm Cognition/Vision: Pt was alert, requiring encouragement to participate w/ therapy, c/o nausea throughout Bed Mobility: Supine to Sit: minimum assist, HOB elevated, no use of arms, assist for B LEs, dependently boosted towards HOB at end of session Sit to Supine: N/A, session started w/ pt sitting EOB Transfers: Sit to Stand: supervised, use of momentum, no use of arms, performed from EOB 4x, bench 1x using rolling walker Stand to Sit: supervised, fair eccentric control using rolling walker Gait: Distance: 50 ft + 50 ft, one seated rest break required Device used: rolling walker Level of assist: supervised, line management Gait mechanics: decreased gait speed, fair foot clearance and step length, no overt LOB noted. Ableto change directions and navigate around objects w/ no issues, utilizing FWW only for balance Stairs: N/A, pt deferred d/t fatigue and nausea Balance: Sitting Static: Good Sitting Dynamic: Fair Standing Static: Good Standing Dynamic / Gait: Fair Education: Pt educated on importance of continued participation w/ therapy and mobilization OOB, transfer training, gait training, energy conservation, bed mobility Pt left in bed/chair position, with all needs met, and with call ambrosio in reach RN aware following visit. Assessment: Viraj Garcia was seen today for physical therapy treatment session for continuationof POC. Pt continues to endorse nausea and poor mood, which was limiting to the session today. Pt was able to ambulate in the hallway w/ no issues, requiring some assistance w/ bed mobility once backin the room. Pt was compliant w/ his sternal precautions throughout and was able to recall them when prompted. PT will continue to work w/ him this weekend to make sure his balance is cleared on stairs, as well as bed mobility from a flat bed. Will continue to work w/ pt while in-house to progress towards functional goals. Pt will benefit from ongoing therapeutic interventions to achieve therapy goals. Inpatient Physical Therapy Plan: 1-3 more times for bed mobility and stair training. Discharge Recommendations: Based on current findings- home with home health Consult Recommendations: No other consults recommended at this time. Equipment needs: None Physical Therapy Goals: Goals to be achieved by 02/22/24. Pt will maintain sternal precautions without cues with all transfers Pt will perform supine to sit transfers with supervision to/from flat bed, log roll technique Pt will perform sit><stand transfers with supervision with least restrictive device Pt will perform bed to chair transfers with supervision with least restrictive device Pt will ambulate at least 160' with supervision with least restrictive device Pt will perform 3 step with rail, LRAD and supervision Time IN / OUT: [id number] Total Time: 25 minutes; TEF 2 Kelley Hinson PTA Pager: [phone] Physical Therapy Inpatient Rehabilitation Department * Louisa Cho PA - 02/21/2024 7:59 AM EDT Cardiac Surgery Progress Note Viraj Garcia is a 63 y.o. male with and CAD who is 4 Days Post-Op AVR/CABGx3. PMH of , CAD, HTN, HLD, former smoker. 24h Events: AF for 6 hours yesterday morning, amio IV resumed In an out of AF again overnight, repeat bolus x1 Hemodynamically stable Ongoing nausea issues S: Rough day yesterday, feeling better today. Nausea remains biggest complaint. Hasn't been able toeat anything substantial. No abd pain or distention, +flatus, no BM O: Temp: [36.7 ??C (98 ??F)-36.9 ??C (98.4 ??F)] Heart Rate: [76-134] Resp: [16-17] BP: (118-151)/(76-92) SpO2: [94 %-100 %] Heart Rate from SpO2: [75 bpm-132 bpm] 02/19 0701 - 02/20 0700 In: 681.4 [P.O.:220; I.V.:461.4] Out: 1075 [Urine:1075] Admit weight: 68.6 kg Current weight: Weight: 65.1 kg (143 lb 9.6 oz) Physical Exam: General: no acute distress, in bed Pulm: non-labored, diminished bases bilat Cardiac: RRR, without murmur/gallop/rub Vascular: warm, trace LE edema Abd: non-tender, non-distended, +BS MSKL: sternum stable Neuro: A&Ox4, no focal deficits Integ: incisions clean, dry, intact Tubes/Lines/Drains: TPW Assessment/Plan: 63 y.o. male 4 Days Post-Op AVR/CABGx3 S/P AVR/CABGx3 ASA 325 daily Atorvastatin 10 Metoprolol 25 increased to TID Lasix on hold given taking in little PO Remove TPW Postoperative refractory N/V Phenergan and zofran stopped Reglan trial Stopping amio given side effect of nausea Hold lasix given little PO intake, D5 1/2 NS 50cc/hr GI labs ordered Bowel regimen Postop AF related to cardiac surgery Stopping amio given refractory nausea Metop 25 increased to TID Will use diltiazem gtt for rate control if needed Eliquis 5 BID started HTN Metoprolol 25 TID Hold home lisinopril for now, add back when indicated Glaucoma Home eye drops BPH Home Flomax 0.4 Voiding Dispo: Floor, full code Discussed with attending surgeon on rounds this morning. 02/21/2024 Between the hours of 1800 - 0600 and on the weekends please page [phone]. * Kelley Hinson PTA - 02/20/2024 3:32 PM EDT 02/20/24 1531 Evaluation & Treatment Document Type contact Total Minutes, Physical Therapy 0 Comment, Session Not Performed Checked in w/ pt this PM for ongoing PT services, pt politely declined, stating he had been dealing w/ nausea all day, made plan to see him tomorrow morning, will f/u at that time Kelley Hinson PTA Pager: [phone] Physical Therapy Inpatient Rehab Department * Louisa Cho PA - 02/20/2024 9:15 AM EDT Cardiac Surgery Progress Note Viraj Garcia is a 63 y.o. male with and CAD who is 3 Days Post-Op AVR/CABGx3. PMH of , CAD, HTN, HLD, former smoker. 24h Events: Back in AF this morning ~530 AM, rates up to 140bpm Restarted on IV amio with bolus S: Pain fairly controlled. Complaints of nausea at times. Complaints of palpitations. Complaints offeeling miserable. No BM yet, +flatus O: Temp: [36.7 ??C (98.1 ??F)-37.1 ??C (98.8 ??F)] Heart Rate: [81-126] Resp: [16-18] BP: (113-141)/(56-92) SpO2: [93 %-95 %] Heart Rate from SpO2: [66 bpm-96 bpm] 02/18 0701 - 02/19 0700 In: 1188 [P.O.:1188] Out: 1100 [Urine:1100] Admit weight: 68.6 kg Current weight: Weight: 66.1 kg (145 lb 12.8 oz) Physical Exam: General: no acute distress, in bed Pulm: non-labored, diminished bases bilat Cardiac: tachy, irregular, without murmur/gallop/rub Vascular: warm, trace LE edema Abd: non-tender, non-distended, hypoactive bowel sounds MSKL: sternum stable Neuro: A&Ox4, no focal deficits Integ: incisions clean, dry, intact Tubes/Lines/Drains: TPW Assessment/Plan: 63 y.o. male 3 Days Post-Op AVR/CABGx3 S/P AVR/CABGx3 ASA 325 daily Atorvastatin 10 Metoprolol 25 BID Lasix 20 PO daily Keep TPW today Day 3 labs reviewed, follow up on CXR Postoperative N/V Phenergan PRN Bowel regimen Postop AF related to cardiac surgery Second round of IV amio bolus/gtt restarted Metop 25 BID Will start Eliquis is AF continues or subsequent episode HTN Metoprolol 25 BID Hold home lisinopril for now, add back when indicated Glaucoma Home eye drops BPH Home Flomax 0.4 Voiding Dispo: Floor, full code Discussed with attending surgeon on rounds this morning. 02/20/2024 Between the hours of 1800 - 0600 and on the weekends please page [phone]. * Chrystal Benavides, PT - 02/19/2024 11:22 AM EDT Physical Therapy Evaluation Patient profile: Viraj Garcia is a 63 y.o. male with and CAD who is 2 Days Post-Op AVR/CABGx3. PMH of , CAD, HTN, HLD, former smoker. 24h Events: Transferred AF w/ RVR ~1200 Amio bolus/gtt Resumed SR ~0400 Social History: Pt lives alone in a 1 level home with 3 stairs to enter. Pt reports his dtr is coming from [place] to stay upon d/c for 10 days. 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 He drives. He works. Precautions/Special Considerations: STERNAL PRECAUTIONS (No pushing, pulling or lifting >8-10lbs); at risk to fall; pacing wires Mobility and Positioning Recommendations: Ambulate 3-4x/daily with nursing with rolling walker and 1 assist; chair follow OOB in chair for all meals Objective: Pt seen in the [facility] for initial evaluation, post operative protocol exs and precaution teaching w/ transfers and gait. Pt in bed at start of session; in chair at end of session with call ambrosio in reach. Vital Signs: BP: 122/83 seated EOB; 122/84 with amb SpO2: 95% on RA HR: 93 bpm Incentive Spirometer: 250 mL with cues; poor quality Pain: 0/10 reported by patient at rest; 5/10 with mobility. Pt guarded and not willing to take deepbreaths. Agreeable to pain medication at end of session. Mental Status: A & O x 3 Skin: Sternal incision CDI. Musculoskeletal: ROM: WFL Strength: B LE's 4/5 Bed Mobility: Supine ->Sit: min assist for trunk; cues for log roll Sit-> Supine: not assessed Transfers: Sit to stand: cg assist x 1; cues for hand placement Stand to Sit: cg assist x 1 Gait: Ambulated 80 ft with rolling walker; 1 cg assist; seated rest break Balance: fair with walker Stairs: not assessed Education/Exercise Instruction: Reviewed ankle pumps, LAQ, shoulder ff to prevent shoulder contractures, IS with deep breathing and cough technique. Pt was instructed in sternal precautions and demonstrated understanding. Assessment: Pt is s/p above CT surgery with sternotomy presenting with expected post operative pain, impaired skin integrity, impaired breathing mechanics, impaired cough, impaired activity toleranceresulting in decreased functional balance, impaired transfers and gait. Pt requires cues for sternal precautions, pacing and breathing techniques with all mobility at this time. He ambulated in the hallway today with 1 assist. He fatigues quickly. Vitals stable on RA. Pain limited deep breathing/cough. Poor quality on IS. Pt's dtr is coming to stay upon d/c. Anticipate pt will make gains with mobility and be safe for home d/c with assist once medically ready. He will benefit from frequent walkswith nursing daily with walker and chair follow. Plan: 1-3 more visits for continued functional strength training, transfer training, gait training,stair training and pt education. Discharge Recommendations: Home with dtr Equipment needs for home at d/c: to be determined (owns rolling walker, shower seat) Goals to be achieved by 02/22/24. Pt will maintain sternal precautions without cues with all transfers Pt will perform supine to sit transfers with supervision to/from flat bed, log roll technique Pt will perform sit><stand transfers with supervision with least restrictive device Pt will perform bed to chair transfers with supervision with least restrictive device Pt will ambulate at least 160' with supervision with least restrictive device Pt will perform 3 step with rail, LRAD and supervision. 2017 PT Evaluation Code Rationale: Diagnosis & Pertinent Co-Morbidities, personal factors, and present illness affecting Plan of Care: (see above); Additional personal factors or co- morbidities that impact plan: Total # of Factors: 0 1-2 3+ x Examination of body system impairments, functional limitations and behaviors, and/or participation restrictions. Addressing 1-2 elements Addressing 3 + elements Addressing 4 + elements x Clinical presentation: See assessment above. Stable/Uncomplicated Evolving/Fluctuating Symptoms Unstable/Unpredictable x Clinical decision making of moderate complexity based on pt's functional performance as outlined inthis evaluation. CHRYSTAL BENAVIDES, PT Pager: [phone] Physical Therapy Inpatient Rehabilitation Department Time IN / OUT: [id number] Total Time: 38 (eval) minutes; * Antonio Allen PA - 02/19/2024 9:16 AM EDT Cardiac Surgery Progress Note Viraj Garcia is a 63 y.o. male with and CAD who is 2 Days Post-Op AVR/CABGx3. PMH of , CAD, HTN, HLD, former smoker. 24h Events: Transferred AF w/ RVR ~1200 Amio bolus/gtt Resumed SR ~0400 S: Feels better this morning, pain improved with dilaudid, nausea improved. Denies CP/SOB/abd pain O: Temp: [36.7 ??C (98.1 ??F)-37.1 ??C (98.8 ??F)] Heart Rate: [86-98] Resp: [16-18] BP: (118-136)/(65-85) SpO2: [92 %-99 %] Heart Rate from SpO2: [87 bpm-115 bpm] 02/17 0701 - 02/18 0700 In: 312 [P.O.:240; I.V.:72] Out: 835 [Urine:775] Admit weight: 68.6 kg Current weight: Weight: 63 kg (138 lb 12.8 oz) Physical Exam: General: Sitting bedside, appears well Neuro: Alert, no focal neurologic deficits Lungs: RA Heart: RRR in the 80s. NSR on tele Abdomen: Soft and non-distended Ext: WWP, Trace LE edema Incisions: Covered with OR dressing CDI. Saphenectomy site CDI Tubes/Lines/Drains: TPW, Donya Assessment/Plan: 63 y.o. male 2 Days Post-Op AVR/CABGx3 S/P AVR/CABGx3 Postoperative N/V ASA 325 Atorvastatin 10 Metoprolol 25'' Start lasix 20' po Phenergan PRN Tylenol Dilaudid Protonix RBOs Pw tomorrow Post op AF related to cardiac surgery Amio gtt->amio 200'' po Metop 25'' HTN Metoprolol 25'' Hold home lisinopril for now, add back when indicated Glaucoma Home eye drops BPH Home Flomax 0.4' Dc donya Dispo: Floor Discussed with attending surgeon on rounds this morning. 02/19/2024 Between the hours of 1800 - 0600 and on the weekends please page [phone]. * Minnie Begum PA - 02/18/2024 8:25 AM EDT Cardiac Surgery Progress Note Viraj Garcia is a 63 y.o. male with and CAD who is 1 Day Post-Op AVR/CABGx3. PMH of , CAD, HTN, HLD, former smoker. 24h Events: -Plts in OR -Extubated 1630 -Hydralazine for HTN, Nicard o/n -N/V not relieved with zofran, Phenerganx2 with relief S: Doesn't feel great but better with phenergan, no more vomiting this morning but no real appetite. Tolerating couple sips. No flatus yet. Pain is ok. Denies CP/SOB O: Temp: [33.5 ??C (92.3 ??F)-36.8 ??C (98.2 ??F)] Heart Rate: [75-94] Resp: [9-15] BP: (119)/(70) SpO2: [91 %-100 %] Heart Rate from SpO2: [76 bpm-94 bpm] Hemodynamics: CVP 6-7 PAP 26-30/9-13 CI 2.5 Drips: Nicard OFF since 6AM 02/16 0701 - 02/17 0700 In: 3917.1 [I.V.:2262.1] Out: 6774 [Urine:4895] CT Mediastinal CT 650cc/320cc/150cc, no AL L pleural CT 110cc/30cc/10cc, no AL Net -2.8/day Admit weight: 68.6 kg Current weight: Weight: 68.6 kg (151 lb 3.8 oz) Physical Exam: General: Patient is pleasant and cooperative. No acute distress. Neuro: EOMI, Muscle strength is 5/5 and symmetric in upper and lower extremities bilaterally. No focal neurologic deficits. Lungs: Diminished in bases bilaterally Heart: RRR in the 80s. NSR on tele Abdomen: Soft and non-distended. Hypoactive BS. No rebound or rigidity. Ext: Moving all extremities symmetrically. Temperature is warm and symmetric. Trace LE edema Incisions: Covered with OR dressing CDI. Saphenectomy site CDI with KEVYN wrap Tubes/Lines/Drains: RIJ/PAC, Estrella, Med Ctx, L pleural CT, TPW, Naqvi Assessment/Plan: 63 y.o. male 1 Day Post-Op AVR/CABGx3 S/P AVR/CABGx3 Postoperative N/V ASA 325 QD Atorvastatin 10 QD Start Metoprolol 25 BID Hold lasix given low filling pressures and auto-diuresing DC all CTs at noon Zofran PRN Phenergan 12.5 PRN Transfer to floor HTN Metoprolol 25 BID Hold home lisinopril for now, add back when indicated Hydralazine PRN Glaucoma Restart home Eye drops BPH Restart home Flomax 0.4' Keep Naqvi today Dispo: [facility], Full Code, Transfer Discussed with attending surgeon on rounds this morning. GILLIAN Garcia 02/18/2024 Between the hours of 1800 - 0600 and on the weekends please page [phone]. * Kim Ha MAIL HANDLERS SUPERVISOR - 02/17/2024 2:25 PM EDT Respiratory Care Mechanical Ventilation Note Protocol: CTICU SBT: Yes SPO2 Goal: Saturation Goal: > 92% Vent Mode: SIMV (VC) + PS Circuit: HME Settings: Tidal Volume Set: 510 Resp. Rate Set: 14 PS Above PEEP (cm H2O): 5 Set PEEP (cm H2O): 5 Set FiO2: (S) 40 % VT/K Inspiratory Time: 1 Sec(s) Measurements: Tidal Volume Measured Exp.: 473 Resp: 14 Peak Inspiratory Pressure: 15 Mean Airway Pressure (cm H2O): 7.4 Minute Ventilation Total Exhaled (L/min): 6.6 Plateau Pressure (cm H2O): 12 SpO2: 99 % ETCO2 (mmHg): 27 mmHg Airway: Size: 8.0 ETT Depth: 23 cm @ teeth/gums. Medications: None Lung sounds: Diminished Secretions: Small amount of Thin/Thick (Middle of the road) White. Assessment: Received Viraj orally intubated from OR patient placed on the above noted settings - Fi02 weaned to 40% Passed SBT + cuff leak - patient extubated to NC 4L Kim Ha RCP documented in this encounter H&P Notes * Zak Graham MD - 02/17/2024 7:02 AM EDT There has been No change in the patients condition or operative plan since last visit. Zak Graham MD [phone] Source Note - Zak Graham MD - 02/17/2024 7:00 AM EDT Patient Name: Viraj Garcia Patient Age: 63 y.o. Birthdate: 1960 Admit date: 02/17/2024 Attending Physician: Zak Graham MD Mr. Santa is a 63-year-old man with known aortic stenosis that has been followed with serial echocardiography. He recently has begun to experience symptoms of class II exertional dyspnea significantly worse than last year. A recent echo demonstrates severe possibly bicuspid aortic valve stenosis with an aortic valve area of between 0.8 and 0.7 cm??. His LV systolic functions in the 50s. He has a 4 cm aorta on that study. His past medical history and systems reviewed in their entirety the pertinent issues are listed here. He has treated hypertension, he has dyslipidemia. He is not a diabetic. He has had no known previous CVA TIA renal or hepatic insufficiency. He has glaucoma. He used to bacco until about 15 years ago. He has undergone prior herniorrhaphy. 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 CT aorta- No ascending aneurysm Cath- severe TVD including LM On examination he has a blood pressure 120/70 with a heart rate in the 70s. His HEENT examination is remarkable for murmur transmitted to the right side of his neck. There areno cervical masses. He does have a 3/6 systolic murmur at the right upper parasternal border which radiates into his neck. His chest is otherwise clear to auscultation. His lower extremities are free of edema. In summary, I agree Mr. Santa would benefit from aortic valve replacement therapy pin placement therapy. Given his chronological age and the likely bicuspid nature of his aortic valve I think a surgical approach would be the most appropriate. The potential risks and anticipated benefits reviewed carefully with him. He does wish to proceed, and has given written informed consent. Zak Graham MD [phone] * Zak Graham MD - 02/17/2024 7:00 AM EDT Patient Name: Viraj Garcia Patient Age: 63 y.o. Birthdate: 1960 Admit date: 02/17/2024 Attending Physician: Zak Graham MD Mr. Santa is a 63-year-old man with known aortic stenosis that has been followed with serial echocardiography. He recently has begun to experience symptoms of class II exertional dyspnea significantly worse than last year. A recent echo demonstrates severe possibly bicuspid aortic valve stenosis with an aortic valve area of between 0.8 and 0.7 cm??. His LV systolic functions in the 50s. He has a 4 cm aorta on that study. His past medical history and systems reviewed in their entirety the pertinent issues are listed here. He has treated hypertension, he has dyslipidemia. He is not a diabetic. He has had no known previous CVA TIA renal or hepatic insufficiency. He has glaucoma. He used to bacco until about 15 years ago. He has undergone prior herniorrhaphy. 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 CT aorta- No ascending aneurysm Cath- severe TVD including LM On examination he has a blood pressure 120/70 with a heart rate in the 70s. His HEENT examination is remarkable for murmur transmitted to the right side of his neck. There areno cervical masses. He does have a 3/6 systolic murmur at the right upper parasternal border which radiates into his neck. His chest is otherwise clear to auscultation. His lower extremities are free of edema. In summary, I agree Mr. Santa would benefit from aortic valve replacement therapy pin placement therapy. Given his chronological age and the likely bicuspid nature of his aortic valve I think a surgical approach would be the most appropriate. The potential risks and anticipated benefits reviewed carefully with him. He does wish to proceed, and has given written informed consent. Zak Graham MD [phone] documented in this encounter Miscellaneous Notes * Care Management Discharge - Michelle Main RN - 02/24/2024 9:01 AM EDT CARE MANAGEMENT FINAL DISCHARGE NOTE Chart reviewed, care reviewed with primary team and at interdisciplinary rounds. Patient is medically ready for discharge to home with home health. Needs for Transition of Care: Plan for discharge is: Home w/ Services Outpatient Agency/Support Group Needs: Homecare agency Home Health Services: Physical Therapy, Registered Nurse Agency Referrals & Follow-up Care: Contact information for follow-up Home Health & Hospice, [address] [place] [address] Cardiac Rehab, [address] [place] [address] Transportation: family or friend will provide Functional status prior to admission: Independent Home Environment: Others in the home: alone. Current Living Arrangements: home/apartment/condo. Accessibility Concerns:a few steps to enter 1 floor home. Current Functional Ability: Assistive Person and Equipment DME used at home: none DME Needed at Discharge: N/A Patient is insured through: Primary Insurance: [facility] Payor: [facility] / Plan: [facility] PPO / Product Type: *No Product type* / Secondary Insurance: N/A Prescription Coverage: Yes Per provider, pt MR to discharge to home with home health. This plan was formulated with input frompatient and team. All are in agreement with plan. Michelle Main RNCM Office of Care Management * Plan of Care - Mishel Merrill RN - 02/23/2024 4:26 PM EDT OUTCOME EVALUATION NOTE: OUTCOME SUMMARY: Patient A&OX4. OOB X1 assist and walker. Patient with shallow breathing, IS encouraged. HR 90-100's metop increased. Daughter at bedside most of day. PLAN MOVING FORWARD: D/C home tomorrow. INDIVIDUALIZED FALL PREVENTION INTERVENTIONS: CPG GOAL OUTCOME EVALUATION: Problem: Fall Injury Risk Goal: Absence of Fall and Fall-Related Injury Outcome: Ongoing (Interventions Implemented as Appropriate) Problem: Adult Inpatient Plan of Care Goal: Plan of Care Review Outcome: Ongoing (Interventions Implemented as Appropriate) Goal: Patient-Specific Goal (Individualized) Outcome: Ongoing (Interventions Implemented as Appropriate) Goal: Absence of Hospital-Acquired Illness or Injury Outcome: Ongoing (Interventions Implemented as Appropriate) Goal: Optimal Comfort and Wellbeing Outcome: Ongoing (Interventions Implemented as Appropriate) Goal: Readiness for Transition of Care Outcome: Ongoing (Interventions Implemented as Appropriate) Problem: Bleeding (Surgery Nonspecified) Goal: Absence of Bleeding Outcome: Ongoing (Interventions Implemented as Appropriate) Problem: Infection (Surgery Nonspecified) Goal: Absence of Infection Signs and Symptoms Outcome: Ongoing (Interventions Implemented as Appropriate) Problem: Pain (Surgery Nonspecified) Goal: Acceptable Pain Control Outcome: Ongoing (Interventions Implemented as Appropriate) Problem: Postoperative Nausea and Vomiting (Surgery Nonspecified) Goal: Nausea and Vomiting Relief Outcome: Ongoing (Interventions Implemented as Appropriate) * Plan of Care - Ingrid Menjivar RN - 02/22/2024 6:03 PM EDT Day Shift Summary Patient AOx4, VSS, RA. In and out of Afib/NSR on tele, HR increases up to 150 bpm unsustained at times, see scanned docs. Patient denies CP, SOB, dizziness or fatigue. Patient c/o nausea and decreased appetite this morning, improved throughout the day. Reglan IV given x 2 with good effect. Patient was able to tolerate dry toast, chicken broth, saltine crackers, pudding, veggie sandwich, and veggie sticks with cottage cheese. K replacement via IV infusion, with maintenance fluids continuous. PT session, see notes. Patient up in chair, sternal precautions maintained, pain minimal and managed with tylenol. Call ambrosio, personal devices within reach. SBA w/ walker to bathroom. Plan HR control/med management Able to tolerate diet D/c planning as appropriate Interventions: ongoing Problem: Fall Injury Risk Goal: Absence of Fall and Fall-Related Injury Outcome: Ongoing (Interventions Implemented as Appropriate) Problem: Adult Inpatient Plan of Care Goal: Plan of Care Review Outcome: Ongoing (Interventions Implemented as Appropriate) Goal: Patient-Specific Goal (Individualized) Outcome: Ongoing (Interventions Implemented as Appropriate) Goal: Absence of Hospital-Acquired Illness or Injury Outcome: Ongoing (Interventions Implemented as Appropriate) Goal: Optimal Comfort and Wellbeing Outcome: Ongoing (Interventions Implemented as Appropriate) Goal: Readiness for Transition of Care Outcome: Ongoing (Interventions Implemented as Appropriate) Problem: Bleeding (Surgery Nonspecified) Goal: Absence of Bleeding Outcome: Ongoing (Interventions Implemented as Appropriate) Problem: Infection (Surgery Nonspecified) Goal: Absence of Infection Signs and Symptoms Outcome: Ongoing (Interventions Implemented as Appropriate) Problem: Pain (Surgery Nonspecified) Goal: Acceptable Pain Control Outcome: Ongoing (Interventions Implemented as Appropriate) Problem: Postoperative Nausea and Vomiting (Surgery Nonspecified) Goal: Nausea and Vomiting Relief Outcome: Ongoing (Interventions Implemented as Appropriate) * Plan of Care - Jazlyn Maldonado RN - 02/21/2024 4:41 PM EDT OUTCOME EVALUATION NOTE: OUTCOME SUMMARY: Pt A/Ox4. See saved tele strips. Incisional pain managed with scheduled Tylenol. Worked with mobility [employer]. Ambulated in the roque multiple times during the day. Amio drip D/C. Started Dextrose 5% andNaCl 0.45% gtt. Daughter at bedside. Chair alarmed for safety. Pt had two bowel movements. Intermittent nausea managed with PRN promethazine and metoclopramide. PLAN MOVING FORWARD: Continue to monitor CARE PLAN GOAL OUTCOME EVALUATION: Problem: Adult Inpatient Plan of Care Goal: Plan of Care Review Outcome: Ongoing (Interventions Implemented as Appropriate) Goal: Patient-Specific Goal (Individualized) Outcome: Ongoing (Interventions Implemented as Appropriate) Goal: Absence of Hospital-Acquired Illness or Injury Outcome: Ongoing (Interventions Implemented as Appropriate) Goal: Optimal Comfort and Wellbeing Outcome: Ongoing (Interventions Implemented as Appropriate) Goal: Readiness for Transition of Care Outcome: Ongoing (Interventions Implemented as Appropriate) Problem: Fall Injury Risk Goal: Absence of Fall and Fall-Related Injury Outcome: Ongoing (Interventions Implemented as Appropriate) Problem: Bleeding (Surgery Nonspecified) Goal: Absence of Bleeding Outcome: Ongoing (Interventions Implemented as Appropriate) Problem: Infection (Surgery Nonspecified) Goal: Absence of Infection Signs and Symptoms Outcome: Ongoing (Interventions Implemented as Appropriate) Problem: Pain (Surgery Nonspecified) Goal: Acceptable Pain Control Outcome: Ongoing (Interventions Implemented as Appropriate) Problem: Postoperative Nausea and Vomiting (Surgery Nonspecified) Goal: Nausea and Vomiting Relief Outcome: Ongoing (Interventions Implemented as Appropriate) * Plan of Care - Jazlyn Maldonado RN - 02/20/2024 5:16 PM EDT OUTCOME EVALUATION NOTE: OUTCOME SUMMARY: Pt A/Ox4. See saved tele strips. Amio gtt with bolus initiated due to rhythm change. Incisional pain managed with scheduled Tylenol. Intermittent nausea reported throughout the day. Nausea unrelievedwith PRN promethazine and PRN ondansetron, provider notified. Daughter at bedside. Ambulated in roque x1. PLAN MOVING FORWARD: Needs BM Ambulate CARE PLAN GOAL OUTCOME EVALUATION: Problem: Adult Inpatient Plan of Care Goal: Plan of Care Review Outcome: Ongoing (Interventions Implemented as Appropriate) Goal: Patient-Specific Goal (Individualized) Outcome: Ongoing (Interventions Implemented as Appropriate) Goal: Absence of Hospital-Acquired Illness or Injury Outcome: Ongoing (Interventions Implemented as Appropriate) Goal: Optimal Comfort and Wellbeing Outcome: Ongoing (Interventions Implemented as Appropriate) Goal: Readiness for Transition of Care Outcome: Ongoing (Interventions Implemented as Appropriate) Problem: Fall Injury Risk Goal: Absence of Fall and Fall-Related Injury Outcome: Ongoing (Interventions Implemented as Appropriate) Problem: Bleeding (Surgery Nonspecified) Goal: Absence of Bleeding Outcome: Ongoing (Interventions Implemented as Appropriate) Problem: Bowel Motility Impaired (Surgery Nonspecified) Goal: Effective Bowel Elimination Outcome: Ongoing (Interventions Implemented as Appropriate) Problem: Infection (Surgery Nonspecified) Goal: Absence of Infection Signs and Symptoms Outcome: Ongoing (Interventions Implemented as Appropriate) Problem: Pain (Surgery Nonspecified) Goal: Acceptable Pain Control Outcome: Ongoing (Interventions Implemented as Appropriate) Problem: Postoperative Nausea and Vomiting (Surgery Nonspecified) Goal: Nausea and Vomiting Relief Outcome: Ongoing (Interventions Implemented as Appropriate) Problem: Postoperative Urinary Retention (Surgery Nonspecified) Goal: Effective Urinary Elimination Outcome: Ongoing (Interventions Implemented as Appropriate) * Care Management - Rhett Bell RN - 02/20/2024 12:53 PM EDT OFFICE OF CARE MANAGEMENT PROGRESS NOTE LOS: Hospital Day 3 days Chart reviewed, care reviewed with primary team and at interdisciplinary rounds. Patient continues to meet inpatient level of care related to provider note 02/20/2024: 63 y.o. male with and CAD who is 3 Days Post-Op AVR/CABGx3. PMH of , CAD, HTN, HLD, former smoker. 24h Events: Back in AF this morning ~530 AM, rates up to 140bpm Restarted on IV amio with bolus Decision Maker: Self Functional status prior to admission: Independent Home Environment: Others in the home: alone. Current Living Arrangements: home/apartment/condo. Accessibility Concerns: a few steps to enter 1 floor home. Current Functional Ability: Assistive Person and Equipment DME used at home: none DME Needed at Discharge: none anticipated Patient is insured through: Primary Insurance: [facility] Payor: [facility] / Plan: [facility] PPO / Product Type: *No Product type* / Secondary Insurance: N/A Last Physical Therapy Recommendation: home with home health (Str coming to stay for a week or two upon d/c) with to be determined (owns rolling walker, shower seat) Plan for discharge is: Home w/ Services Outpatient Agency/Support Group Needs: Homecare agency Home Health Services: Physical Therapy, Registered Nurse Agency Referrals: [facility] [address] [place] [phone] Transportation: family or friend will provide Barriers to discharge: Discharge planning Plan going forward: Service Care Management will continue to follow and assist with discharge planning and coordination of care as indicated. Anticipated Date of Discharge: 02/22/2024 Rhett Bell RN RN/CM - Cellphone: [phone] Pager: [phone] Covering Service RN/CM * Plan of Care - Brit He RN - 02/20/2024 4:48 AM EDT Problem: Fall Injury Risk Goal: Absence of Fall and Fall-Related Injury Outcome: Ongoing (Interventions Implemented as Appropriate) Problem: Adult Inpatient Plan of Care Goal: Plan of Care Review Outcome: Ongoing (Interventions Implemented as Appropriate) Flowsheets (Taken 02/19/2024 0659) Plan of Care Reviewed With: patient Progress: improving Goal: Patient-Specific Goal (Individualized) Outcome: Ongoing (Interventions Implemented as Appropriate) Flowsheets (Taken 02/19/2024 0659) Anxieties, Fears or Concerns: Moving to much and causing pain Individualized Care Needs: Increased mobility Patient-Specific Goals (Include Timeframe): Patient will be OOB for meals before end of shift Goal: Absence of Hospital-Acquired Illness or Injury Outcome: Ongoing (Interventions Implemented as Appropriate) Goal: Optimal Comfort and Wellbeing Outcome: Ongoing (Interventions Implemented as Appropriate) Goal: Readiness for Transition of Care Outcome: Ongoing (Interventions Implemented as Appropriate) Problem: Bleeding (Surgery Nonspecified) Goal: Absence of Bleeding Outcome: Ongoing (Interventions Implemented as Appropriate) Problem: Bowel Motility Impaired (Surgery Nonspecified) Goal: Effective Bowel Elimination Outcome: Ongoing (Interventions Implemented as Appropriate) Problem: Infection (Surgery Nonspecified) Goal: Absence of Infection Signs and Symptoms Outcome: Ongoing (Interventions Implemented as Appropriate) Problem: Pain (Surgery Nonspecified) Goal: Acceptable Pain Control Outcome: Ongoing (Interventions Implemented as Appropriate) Problem: Postoperative Nausea and Vomiting (Surgery Nonspecified) Goal: Nausea and Vomiting Relief Outcome: Ongoing (Interventions Implemented as Appropriate) Problem: Postoperative Urinary Retention (Surgery Nonspecified) Goal: Effective Urinary Elimination Outcome: Ongoing (Interventions Implemented as Appropriate) * Plan of Care - Jazlyn Maldonado RN - 02/19/2024 4:32 PM EDT OUTCOME EVALUATION NOTE: OUTCOME SUMMARY: Pt A/Ox4. See saved tele strips. Denies chest pain or SOB. Incisional pain managed with scheduled Tylenol. Worked with PT. Up to chair in the morning. Naqvi pulled. External pacer set at VVI rate of 40. PLAN MOVING FORWARD: Needs BM IS Ambulate CARE PLAN GOAL OUTCOME EVALUATION: Problem: Adult Inpatient Plan of Care Goal: Plan of Care Review Outcome: Ongoing (Interventions Implemented as Appropriate) Goal: Patient-Specific Goal (Individualized) Outcome: Ongoing (Interventions Implemented as Appropriate) Goal: Absence of Hospital-Acquired Illness or Injury Outcome: Ongoing (Interventions Implemented as Appropriate) Goal: Optimal Comfort and Wellbeing Outcome: Ongoing (Interventions Implemented as Appropriate) Goal: Readiness for Transition of Care Outcome: Ongoing (Interventions Implemented as Appropriate) Problem: Fall Injury Risk Goal: Absence of Fall and Fall-Related Injury Outcome: Ongoing (Interventions Implemented as Appropriate) Problem: Bleeding (Surgery Nonspecified) Goal: Absence of Bleeding Outcome: Ongoing (Interventions Implemented as Appropriate) Problem: Bowel Motility Impaired (Surgery Nonspecified) Goal: Effective Bowel Elimination Outcome: Ongoing (Interventions Implemented as Appropriate) Problem: Infection (Surgery Nonspecified) Goal: Absence of Infection Signs and Symptoms Outcome: Ongoing (Interventions Implemented as Appropriate) Problem: Pain (Surgery Nonspecified) Goal: Acceptable Pain Control Outcome: Ongoing (Interventions Implemented as Appropriate) Problem: Postoperative Nausea and Vomiting (Surgery Nonspecified) Goal: Nausea and Vomiting Relief Outcome: Ongoing (Interventions Implemented as Appropriate) Problem: Postoperative Urinary Retention (Surgery Nonspecified) Goal: Effective Urinary Elimination Outcome: Ongoing (Interventions Implemented as Appropriate) * Consult Note - Kay Yang RN - 02/19/2024 10:44 AM EDT [facility] Viraj Garcia was seen today regarding participation in the outpatient Phase 2 Cardiac Rehabilitation at [facility]. The patient agrees to a referral to this program. The referral will be sent at discharge and the patient should be contacted by the Program within 1- 2 weeks from discharge. * Plan of Care - Brit He RN - 02/19/2024 7:00 AM EDT Problem: Fall Injury Risk Goal: Absence of Fall and Fall-Related Injury Outcome: Ongoing (Interventions Implemented as Appropriate) Problem: Adult Inpatient Plan of Care Goal: Plan of Care Review Outcome: Ongoing (Interventions Implemented as Appropriate) Flowsheets (Taken 02/19/2024 0659) Plan of Care Reviewed With: patient Progress: improving Goal: Patient-Specific Goal (Individualized) Outcome: Ongoing (Interventions Implemented as Appropriate) Flowsheets (Taken 02/19/2024 0659) Anxieties, Fears or Concerns: Moving to much and causing pain Individualized Care Needs: Increased mobility Patient-Specific Goals (Include Timeframe): Patient will be OOB for meals before end of shift Goal: Absence of Hospital-Acquired Illness or Injury Outcome: Ongoing (Interventions Implemented as Appropriate) Goal: Optimal Comfort and Wellbeing Outcome: Ongoing (Interventions Implemented as Appropriate) Goal: Readiness for Transition of Care Outcome: Ongoing (Interventions Implemented as Appropriate) * Initial Assessments - Reina Greene RN - 02/18/2024 4:03 PM EDT Office of Care Management Initial Assessment Reina Greene RN reviewed record and discussed patient with Care Team. Source of Information: Team, medical record, and Patient, Chart Review Introduced self/reviewed role; services accepted. 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 (Only good for 180 days) Any patient receiving care in [place] must abide by [place] law. The hierarchy for surrogate decision making is: (a) Patient???s spouse or civil union partner unless there is a divorce proceeding, separation agreement, or restraining order limiting that person???s relationship with the patient. No spouse (b) Any adult son or daughter of the patient.pts daughter, Cielo would be DPOA (c) Either parent of the patient. (d) Any adult brother or sister of the patient. (e) Any adult grandchild of the patient. (f) Any grandparent of the patient. (g) Any adult aunt, uncle, niece, or nephew of the patient. (h) A close friend of the patient. (i) The agent with financial power of ip technology transactions attorney or a conservator appointed in accordance with RSA 464-A. (j) The guardian of the patient???s estate. Advance Care Planning: Attempt Cardiopulmonary Resuscitation - Inpatient <no information> -Advanced Directive: No, need to discuss Current Coping/Education/Information Needs: pt states that he is coping well with health situation/hospitalization Current Functional Ability: Assistive Equipment and Assistive Person Functional Status Prior to Admission: Independent Prior ADLs & IADLs: Independent with all ADLs & IADLs Home Environment: Others in the home: alone. Current Living Arrangements: home/apartment/condo. Accessibility Concerns:a few steps to enter 1 floor home. In the last 12 months, was there a time when you did not have a steady place to sleep or slept in [facility] (including now)?: No In the past 12 months has the electric, gas, oil, or water [employer] threatened to shut off services in your home?: No Within the past 12 months, you worried that your food would run out before you got the money to buymore.: Never true Within the past 12 months, the food you bought just didn't last and you didn't have money to get more.: Never true Resource / Environmental Concerns: Resource/Environmental Concerns: none Home Accessibility Concerns: stairs to enter home In the past 12 months, has lack of transportation kept you from medical appointments or from getting medications?: No In the past 12 months, has lack of transportation kept you from meetings, work, or from getting things needed for daily living?: No Current DME: none Home Address confirmed as: [address] [facility] [address] Physical address: [address] [facility], [address] Social & Family Supports: All names listed below confirmed with patient as current and correct Extended Emergency Contact Information Primary Emergency Contact: BriseydadoramaryCielo Relation: Child Secondary Emergency Contact: Sara Mcghee Relation: None Current Care Provided by: self Provides Primary Care For: no one Caregiver if needed: child(juan), adult Quality of Family relationships: helpful, involved, supportive Community Resources being provided currently: n/a Behavioral Health History: pt denies any emotional and or mental health concerns Substance Use/Abuse listed: Social History Tobacco Use Smoking Status Former Types: Cigarettes Smokeless Tobacco Never Tobacco Comments Quit 15 + years ago In the past year have you used an illegal drug or used a prescription medication for non-medical reasons?: No 0 No problems reported 1-2 Low level 3-5 Moderate level 6-8 Substantial level 9- 10 Severe level In the past year have you had 5 or more drinks a day containing alcohol?: No 0 to 7 points: Low risk 8 to 15 points: Medium risk 16 to 19 points: High risk 20 to 40 points: Addiction likely Other Pertinent/Service Specific Information: none noted Health/Prescription Coverage: Primary Insurance: [facility] Payor: [facility] / Plan: [facility] PPO / Product Type: *No Product type* / Secondary Insurance: N/A ; Prescription Coverage: Yes Preferred Pharmacy: [id number] [id number] Status: Patient is a : No Primary Care Provider confirmed: Aparna Jordan, MAURI [phone] Patient/Caregiver Goals of Treatment: dc to home Potential Needs for Transition of Care: home health care Agency Referrals: I have met with the patient to: discuss discharge planning needs. provide the [facility], Office of Care Management letter from the Alkylation Operator pertaining to rehab referrals. provide a letter describing our affiliations within the [facility] and educate about their right to choose where referrals are sent. provide a list of Home Health Agencies / Durable Medical Equipment vendors which serve their preferred geographic area. provided patient with [facility] Star Quality Rating handout. They have requested referrals to: [facility] [address] [place] [address] Note routed to a Civil Transportation Engineer who will communicate referrals to facilities and provide any required information. Transportation: no concerns Transportation Anticipated: family or friend will provide Concerns to be Addressed: discharge planning Assessment: Patient is admitted to cardiac surgery service for s/p CABG x3. Pt lives alone and is indep with all at baseline: ADLs, IADLs, ambulation, driving. He states that his daughter, Cielo, will be coming in from [place] on 02/18, to stay with him , in his home ,at discharge. Pt states that she is able to provide support/assist for any needs that he may have when discharged. Plan: dc to home A member of the Care Management team will continue to monitor progress, follow for continuity of care and assist with transition of care planning. Reina Greene RN CM, BSN, CMGT-BC Ext [phone] * Plan of Care - Binta Trinidad RN - 02/18/2024 3:30 PM EDT Problem: Fall Injury Risk Goal: Absence of Fall and Fall-Related Injury Outcome: Ongoing (Interventions Implemented as Appropriate) Problem: Adult Inpatient Plan of Care Goal: Plan of Care Review Outcome: Ongoing (Interventions Implemented as Appropriate) Goal: Patient-Specific Goal (Individualized) Outcome: Ongoing (Interventions Implemented as Appropriate) Goal: Absence of Hospital-Acquired Illness or Injury Outcome: Ongoing (Interventions Implemented as Appropriate) Goal: Optimal Comfort and Wellbeing Outcome: Ongoing (Interventions Implemented as Appropriate) Goal: Readiness for Transition of Care Outcome: Ongoing (Interventions Implemented as Appropriate) * Brief Op Note - Zak Graham MD - 02/17/2024 12:46 PM EDT Brief Operative Note Patient Name: Viraj Garcia : [id number] MR#: [id number] Case Date: 02/17/2024 Surgeon: Surgeon(s) and Role: * Zak Graham MD - Primary * Neftali Menon PA - Physician Crime Scene Evidence Technician Preoperative diagnosis: CAD Postoperative diagnosis: CAD, intraoperative EMMA confirmed the presence of severe, bicuspid calcific aortic stenosis. His LAD and mammary artery were small and there is diffuse disease of his right system. He was from bypass without difficulty, the postoperative transesophageal echo showed a well- functioning aortic bioprosthesis. He LV systolic function was preserved at 65% with LVH. Procedure(s) (LRB): ENDOSCOPIC HARVEST VEIN(S) FOR CABG (WRVU 0.31) (Left) @CABG, USING ARTERIAL GRAFT;SINGLE ARTERIAL GRAFT (WRVU 33.75) (N/A) @CABG, TWO VENOUS GRAFTS & ARTERIAL GRAFT (WRVU 7.93) (N/A) @REPLACE AORTIC VALVE, OPEN, W\CPB, W\PROSTHETIC VALVE (WRVU 41.32) (N/A) CABG x 3 JOSE->LAD SVG->dRCA SVG->OM1 EVH from LLE AVR with a 23 mm Inspiris Bioprosthesis Anesthesia: General / Jaylen Findings: CAD, intraoperative EMMA confirmed the presence of severe, bicuspid calcific aortic stenosis. His LAD and mammary artery were small and there is diffuse disease of his right system. He was from bypass without difficulty, the postoperative transesophageal echo showed a well-functioning aortic bioprosthesis. He LV systolic function was preserved at 65% with LVH. Estimated Blood Loss: Cell Saver Specimens removed during surgery: Aortic Valve Fluids: Intraprocedure Crystalloid Total Intake Cell Saver Volume 894 mL Platelets Volume 261 mL Total Intake 1155 mL Output Urine Output 970 mL Total Output 970 mL Net Net Volume 185 mL PRBCs: none (See Anesthesia Record/Report for Other Blood Products) Urine Output: 970 mL Drains: Mediastinal and Left pleural Disposition: [facility] Condition: doing well without problems Attestation: Case Date: 02/17/2024 I performed this procedure without the involvement of a resident. ZAK GRAHAM MD 02/17/2024 * Op Note - Zak Graham MD - 02/17/2024 8:20 AM EDT [facility] [place] Patient Name: Viraj Garcia : [id number] MR#: [id number] Case Date: 02/17/2024 Surgeon: Surgeons and Role: * Zak Graham MD - Primary * Neftali Menon PA - Physician Crime Scene Evidence Technician Preoperative diagnosis: CAD Postoperative diagnosis: CAD, intraoperative EMMA confirmed the presence of severe, bicuspid calcific aortic stenosis. His LAD and mammary artery were small and there is diffuse disease of his right system. He was from bypass without difficulty, the postoperative transesophageal echo showed a well- functioning aortic bioprosthesis. He LV systolic function was preserved at 65% with LVH. Procedure(s) (LRB): ENDOSCOPIC HARVEST VEIN(S) FOR CABG (WRVU 0.31) (Left) @CABG, USING ARTERIAL GRAFT;SINGLE ARTERIAL GRAFT (WRVU 33.75) (N/A) @CABG, TWO VENOUS GRAFTS & ARTERIAL GRAFT (WRVU 7.93) (N/A) @REPLACE AORTIC VALVE, OPEN, W\CPB, W\PROSTHETIC VALVE (WRVU 41.32) (N/A) CABG x 3 JOSE->LAD SVG->dRCA SVG->OM1 EVH from LLE AVR with a 23 mm Inspiris Bioprosthesis Anesthesia: General / Jaylen Findings: CAD, intraoperative EMMA confirmed the presence of severe, bicuspid calcific aortic stenosis. His LAD and mammary artery were small and there is diffuse disease of his right system. He was from bypass without difficulty, the postoperative transesophageal echo showed a well-functioning aortic bioprosthesis. He LV systolic function was preserved at 65% with LVH. Estimated Blood Loss: Cell Saver Specimens removed during surgery: Aortic Valve Fluids: Intraprocedure Crystalloid Total Intake Cell Saver Volume 894 mL Platelets Volume 261 mL Total Intake 1155 mL Output Urine Output 970 mL Total Output 970 mL Net Net Volume 185 mL PRBCs: none (See Anesthesia Record/Report for Other Blood Products) Urine Output: 970 mL Drains: Mediastinal and Left pleural Disposition: [facility] Procedure Description: The patient was brought to the operating room and placed on the operating table in supine position.Following the induction of a general anesthetic by endotracheal technique and the placement of appropriate monitoring lines he was prepped and draped using a sterile prep. Simultaneous incisions weremade in his midsternal region as well as in the lower extremity. The incision in the lower extremity was utilized to obtain pieces of the greater saphenous vein using a combination of open and endoscopic techniques. The vein was harvested prepared for anastomosis and set aside. The lower extremity wounds were then closed using a layered absorbable suture closure. The wound in the midsternum was carried down through the sternum which was divided with a saw. The left hemisternum was then elevatedwith a mammary artery retractor and the mammary artery was dissected from the endothoracic fascia using Bovie electrocautery taking significant branches with hemoclips. The distal cut end of the LIMAhad excellent flow, it was wrapped in a verapamil soaked gauze and set aside. The mammary artery retractor was then replaced with a standard sternal retractor. The pericardium was opened. He was heparinized and cannulated for bypass. He was brought on bypass. The aorta was crossclamped. The heart was arrested with cold hyperkalemic blood cardioplegia. Additional doses of cardioplegia were given th roughout the cross-clamp interval as indicated by any significant rise in myocardial septal temperature, or the return of any cardiac electrical activity. The vein graft to the distal right coronary was performed first using a 4 mm arteriotomy in a running 7-0 Prolene suture. Using similar anastomotic techniques the graft to the distal obtuse marginal was performed. At this point the aortic valvewas replaced via transverse aortotomy 1.5 cm cephalad to the right coronary orifice. The above findings are noted the valve leaflets are sharply excised. The excess calcium was removed with pituitaryrongeurs. The left ventricular cavity was irrigated with a copious amount of saline to remove all calcific debris. The annulus was then rimmed with horizontal polyester mattress sutures leaving the felt pledgets and the ventricular surface. These were passed through an appropriately oriented 23 mm bovine prosthesis which was secured. The aortic root was closed using 2 running 4-0 Prolene sutures were tied upon themselves. The proximal anastomosis was then completed with a 4 mm aortic punch and running 6-0 Prolene suture. While the patient was being rewarmed on bypass the end of the JOSE was anastomosed to the side of the mid LAD using a running 8-0 Prolene suture and a 4 mm arteriotomy. Theatraumatic clip on the JOSE pedicle was removed at the completion of this anastomosis and the heartpromptly resuscitated indicating good flow through the JOSE. The cross-clamp was then removed. He was electrically defibrillated and fully rewarmed on bypass. During rewarming several maneuvers were executed remove all residual air from the left ventricular cavity as was confirmed by intraoperativeecho. Epicardial and right atrial pacing wires were positioned. Once rewarmed on bypass he was from bypass without significant difficulty. The above echo findings are noted.. Protamine sulfate was administered. He was decannulated. Mediastinal and pleural drainage catheters were positioned. Hemostasis was secured. The sternum was reapproximated with surgical wire. Soft tissues anterior to the sternum were reapproximated using a layered absorbable suture closure. Sterile dressings were applied. He was taken to the cardiothoracic intensive care unit in hemodynamically stable condition. Attestation: Case Date: 02/17/2024 I was present and I participated during the entire procedure (does not need to include opening and closing). ZAK GRAHAM MD 03/02/2024 documented in this encounter Plan of Treatment Upcoming Encounters Date Type Department Care Team (Late st Contact Info) Description 05/27/2024 11:00 AM EDT Office Visit Cardiology at [address] [phone] Neftali Ernandez MD [facility] [place] [address] Scheduled Orders Name Type Priority Associated Diagnoses Order Schedule XR Chest PA & Lateral (Generic) Imaging Routine S/P AVR Expected: 03/26/2024, Expires: 09/25/2024 Echocardiogram Transthoracic Echocardiography Routine S/P AVR Expected: 03/26/2024, Expires: 09/25/2024 Scheduled Referrals Name Type Priority Associated Diagnoses Orde r Schedule Referral to Home Health Outpatient Referral Routine S/P AVR Ordered: 02/24/2024 Referral to Cardiac Rehab Outpatient Referral Routine S/P AVR Ordered: 02/24/2024 documented as of this encounter Procedures Procedure Name Priority Date/Time Associated Diagnosis Comments HC VENIPUNCTURE Routine 02/24/2024 4:42 AM EDT BASIC METABOLIC PANEL (NON-FASTING) Routine 02/23/2024 4:24 AM EDT HC VENIPUNCTURE Routine 02/22/2024 4:30 AM EDT HC L-LACTATE Routine 02/21/2024 9:45 AM EDT HC LIPASE Routine 02/21/2024 9:45 AM EDT HC VENIPUNCTURE Routine 02/21/2024 9:45 AM EDT HEPATIC FUNCTION PANEL Routine 9:45 AM EDT BASIC METABOLIC PANEL (NON-FASTING) Routine 02/21/2024 9:45 AM EDT HC POTASSIUM Routine 02/21/2024 3:08 AM EDT XR CHEST PA AND LATERAL Routine 02/20/20 10:19 AM EDT SCAN, PERIPHERAL BLOOD Routine 4:23 AM EDT HEMOGRAM Routine 02/20/2024 4:23 AM EDT DIFFERENTIAL, AUTOMATED Routine 02/20/20 4:23 AM EDT HC CBC,PLT & AUTO DIFF Routine 4:23 AM EDT BASIC METABOLIC PANEL (NON-FASTING) Routine 02/20/2024 4:23 AM EDT HC POTASSIUM Routine 02/19/2024 3:57 AM EDT POCT GLUCOSE Routine 02/18/2024 8:24 AM EDT HC TROPONIN T Timed 02/18/2024 1:40 AM EDT SCAN, PERIPHERAL BLOOD Routine 1:40 AM EDT HEMOGRAM Routine 02/18/2024 1:40 AM EDT DIFFERENTIAL, AUTOMATED Routine 02/18/20 1:40 AM EDT HC CBC,PLT & AUTO DIFF Routine 1:40 AM EDT BASIC METABOLIC PANEL (NON-FASTING) Routine 02/18/2024 1:40 AM EDT POCT GLUCOSE Routine [...] 2 ARTERIAL Routine 02/17/2024 1:31 PM EDT COOX2 Routine 02/17/2024 1:21 PM EDT BLOOD GAS 2 ARTERIAL Routine 02/17/2024 12:14 PM EDT HC HEMOGRAM STAT 02/17/2024 12:10 PM EDT HC PARTIAL THROMBOPLASTIN TIME STAT 02/17/2024 12:10 PM EDT HC THROMBIN TIME STAT 02/17/2024 12:1 0 PM EDT HC PROTHROMBIN TIME STAT 02/17/2024 1 2:10 PM EDT HC FIBRINOGEN TITER STAT 02/17/2024 1 2:10 PM EDT BLOOD GAS 2 ARTERIAL Routine 02/17/2024 11:43 AM EDT BLOOD GAS 2 ARTERIAL Routine 02/17/2024 11:08 AM EDT HC HEMOGLOBIN, BLOOD STAT 02/17/2024 11:04 AM EDT HC FIBRINOGEN TITER STAT 02/17/2024 1 1:04 AM EDT HC PLATELET COUNT STAT 02/17/2024 11: 04 AM EDT BLOOD GAS 2 ARTERIAL Routine [...] Aortic Valve Open W Cardiopulmonary Bypass Homogrf/Stent (00541) Yes 02/17/2024 7:28 AM EDT CAD Cabg, Artery-Vein, Two ([id number]) Yes 02/17/2024 7:28 AM EDT CAD Cabg, Arterial, Single ([id number]) Yes 02/17/2024 7:28 AM EDT CAD Endoscopy W/Video-Asst Vein Edwards, Cabg ([id number]) Yes 02/17/2024 7:28 AM EDT CAD POCT GLUCOSE Routine 02/17/2024 6:38 AM EDT TRANSESOPHAGEAL ECHOCARDIOGRAM IN THE OR Routine 02/17/2024 6:33 AM EDT Aortic valve stenosis, etiology of cardiac valve disease unspecified LAB SCAN 02/17/2024 12:00 AM EDT IMPLANTABLE DEVICES SCAN 02/17/2024 12:00 AM EDT documented in this encounter Results * Potassium (02/24/2024 4:42 AM EDT) Potassium 4.0 3.5 - 5.0 mmol/L [facility] Comment: Please note: ??Patients with WBC >100,000 may have falsely elevated Potassium levels. ??For accurate Potassium quantification in these patients send serum separator tube (gold top) for subsequent determinations. ??Contact the Clinical Chemistry Laboratory if there are any questions. Blood 02/24/2024 4:42 AM EDT 02/24/2024 4:59 AM EDT Narrative Resulting Agency Comment Spec In Lab Zak Graham MD CHEMISTRY ORDERABLE S [facility] [place] [address] * (ABNORMAL) Basic Metabolic Panel (non-fasting) (02/23/2024 4:24 AM EDT) Glucose Lvl 117 65 - 199 mg/dL [facility] Comment:Diabetes: >=200 mg/d L plus symptoms BUN 18 10 - 20 mg/dL [facility] Creatinine 0.71(L) 0.80 - 1.50 mg/dL [facility] Sodium 138 135 - 145 mmol/L [facility] Potassium 4.4 3.5 - 5.0 mmol/L [facility] Comment: Please note: ??Patients with WBC >100,000 may have falsely elevated Potassium levels. ??For accurate Potassium quantification in these patients send serum separator tube (gold top) for subsequent determinations. ??Contact the Clinical Chemistry Laboratory if there are any questions. Chloride 101 98 - 107 mmol/L [facility] CO2 26 22 - 31 mmol/L [facility] Anion Gap 11 5 - 15 mmol/L [facility] Calcium 8.8 8.5 - 10.5 mg/dL [facility] Estimated GFR 102 >=60 mL/min/1. 73 m?? [facility] [facility] Comment: This patient's estimated GFR was [...] In Lab Romeo Carpio MD CHEMISTRY ORDERABLES [facility] [place] [address] * Potassium (02/22/2024 4:30 AM EDT) Potassium 3.5 3.5 - 5.0 mmol/L [facility] Comment: Please note: ??Patients with WBC >100,000 may have falsely elevated Potassium levels. ??For accurate Potassium quantification in these patients send serum separator tube (gold top) for subsequent determinations. ??Contact the Clinical Chemistry Laboratory if there are any questions. Blood 02/22/2024 4:30 AM EDT 02/22/2024 5:12 AM EDT Narrative Resulting Agency Comment Spec In Lab Zak Graham MD CHEMISTRY ORDERABLE S [facility] [place] [address] * (ABNORMAL) Basic Metabolic Panel (non-fasting) (02/21/2024 9:45 AM EDT) Glucose Lvl 123 65 - 199 mg/dL [facility] Comment:Diabetes: >=200 mg/d L plus symptoms BUN 22(H) 10 - 20 mg/dL [facility] Creatinine 0.78(L) 0.80 - 1.50 mg/dL [facility] Sodium 140 135 - 145 mmol/L [facility] Potassium 3.9 3.5 - 5.0 mmol/L [facility] Comment: Please note: ??Patients with WBC >100,000 may have falsely elevated Potassium levels. ??For accurate Potassium quantification in these patients send serum separator tube (gold top) for subsequent determinations. ??Contact the Clinical Chemistry Laboratory if there are any questions. Chloride 100 98 - 107 mmol/L [facility] CO2 Not Perf 22 - 31 [facility] Comment:Add-on request. Samp le too old to perform test. Anion Gap Unable to Calculate 5 - 15 mmol/L [facility] Calcium 8.6 8.5 - 10.5 mg/dL [facility] Estimated GFR 100 >=60 mL/min/1 .73 m?? [facility] Comment: This patient's estimated GFR was [...] and symptoms in addition to eGFR. Blood Venous Draw / Unknown 02/21/2024 9:45 AM EDT 02/21/2024 9:57 AM EDT Narrative Resulting Agency Comment Spec In Lab Romeo Carpio MD CHEMISTRY ORDERABLES Performing Organization Address City/[facility]/ZIP Co de Phone Number [facility] [place] [address] * Lactate, whole blood, send to lab ([facility] (02/21/2024 9:45 AM EDT) Pathologist [facility] Lactate WB 2.0 0.5 - 2.2 mmol/L [facility] Blood 02/21/2024 9:45 AM EDT 02/21/2024 9:52 AM EDT Narrative Resulting Agency Comment Spec In Lab Zak Graham MD CHEMISTRY ORDERABLE S Performing Organization Address City/[facility]/ZIP Co de Phone Number [facility] [place] [address] * (ABNORMAL) Hepatic Function Panel (02/21/2024 9:45 AM EDT) Total Protein 5.7(L) 6.1 - 8.0 g/dL [facility] Albumin 3.3 3.2 - 5.2 g/dL [facility] AST 13 0 - 39 unit/L [facility] ALT 16 0 - 55 unit/L [facility] Alk Phos 63 40 - 130 unit/L [facility] Total Bilirubin 0.6 0.2 - 1.3 mg/dL [facility] Bili, Direct 0.2 0.0 - 0.3 mg/dL [facility] Blood 02/21/2024 9:45 AM EDT 02/21/2024 9:52 AM EDT Narrative Resulting Agency Comment Spec In Lab Zak Graham MD CHEMISTRY ORDERABLE S Performing Organization Address City/[facility]/ZIP Co de Phone Number [facility] [place] [address] * Lipase (02/21/2024 9:45 AM EDT) Lipase 56 0 - 60 unit/L [facility] Blood 02/21/2024 9:45 AM EDT 02/21/2024 9:52 AM EDT Narrative Resulting Agency Comment Spec In Lab Zak Graham MD CHEMISTRY ORDERABLE S Performing Organization Address [facility] Co de Phone Number [facility] [place] [address] * Amylase (02/21/2024 9:45 AM EDT) Amylase 69 28 - 100 unit/L [facility] Blood 02/21/2024 9:45 AM EDT 02/21/2024 9:52 AM EDT Narrative Resulting Agency Comment Spec In Lab Zak Graham MD CHEMISTRY ORDERABLE S Performing Organization Address [facility] Co de Phone Number [facility] [place] [address] * Potassium (02/21/2024 3:08 AM EDT) Potassium 3.8 3.5 - 5.0 mmol/L [facility] Comment: Please note: ??Patients with WBC >100,000 may have falsely elevated Potassium levels. ??For accurate Potassium quantification in these patients send serum separator tube (gold top) for subsequent determinations. ??Contact the Clinical Chemistry Laboratory if there are any questions. Blood 02/21/2024 3:08 AM EDT 02/21/2024 3:28 AM EDT Narrative Resulting Agency Comment Spec In Lab Zak Graham MD CHEMISTRY ORDERABLE S [facility] [place] [address] * XR Chest PA & Lateral (Generic) (02/20/2024 10:19 AM EDT) WORKSTATION ID [id number] RAD Anatomical Region Laterality Modality Chest N/A Digital Radiogra phy Impressions 02/20/2024 1:11 PM EDT Small pleural effusions. No pneumothorax Thank you for letting us participate in the care of this patient. ??If you are a health care provider and have any questions regarding this report, please contact the number below. ??For patients who have questions please contact the health caretaker that requested your imaging first. ? Electronically signed by: Rogerio Cruz MD, [facility] ??([phone]), at 02/20/2024 1:11 PM Narrative 02/20/2024 1:11 PM EDT EXAMINATION: XR CHEST PA AND LATERAL (GENERIC) CLINICAL HISTORY: s/p AVR/CABGx3 TECHNIQUE: PA and lateral views of the chest COMPARISON: 02/17/2024 FINDINGS: Support devices: Interval removal of [place]aila catheter, endotracheal tube and mediastinal chest tubes The cardiac silhouette is stable status post median sternotomy, CABG and aortic valve replacement. There are small pleural effusions. No pneumothorax. Procedure Note Rogerio Cruz MD - 02/20/2024 EXAMINATION: XR CHEST PA AND LATERAL (GENERIC) CLINICAL HISTORY: s/p AVR/CABGx3 TECHNIQUE: PA and lateral views of the chest COMPARISON: 02/17/2024 FINDINGS: Support devices: Interval removal of [place]aila catheter, endotracheal tubeand mediastinal chest tubes The cardiac silhouette is stable status post median sternotomy, CABG andaortic valve replacement. There are small pleural effusions. No pneumothorax. IMPRESSION Small pleural effusions. No pneumothorax Thank you for letting us participate in the care of this patient. If youare a health care provider and have any questions regarding this report,please contact the number below. For patients who have questions please contactthe health caretaker that requested your imaging first. Zak Graham MD IMG DX ORDERABLES * Scan, Peripheral Blood (02/20/2024 4:23 AM EDT) Pathologist [facility] Plat Estimate Decreased [facility] RBC Morphology Normal [facility] Blood 02/20/2024 4:23 AM EDT 02/20/2024 4:42 AM EDT Narrative Resulting Agency Comment Spec In Lab Minnie FRENCH HEMATOLOGY CECILIO ALEMAN [facility] [place] [address] * (ABNORMAL) Differential, Automated (02/20/2024 4:23 AM EDT) [facility] Neutrophils % 81.7 % [facility] Neutr Abs (ANC) 10.37(H) 1.70 - 6.10 x10(3)/mc L [facility] Lymphocytes % 7.4 % [facility] Lymphocytes Abs 0.9 0.9 - 3.2 x10(3)/mc L [facility] Monocytes % 9.7 % [facility] Monocyte Abs 1.2(H) 0.3 - 0.9 x10(3)/mc L [facility] Eosinophils % 0.1 % [facility] Eosinophils Abs 0.0 0.0 - 0.4 x10(3)/[facility] Basophils % 0.2 % [facility] Basophils Abs 0.0 0.0 - 0.1 x10(3)/[facility] Immature Gran % 0.90 % [facility] Comment: Immature granulocytes(IG's)percentage and absolute count will include metamyelocytes, myelocytes, and promyelocytes. Blood smears from CBCs yielding IG's will be scanned manually for concordance. If this scan disagrees with the automated IG or if promyelocytes are noted, a manual differential will be performed. [place] Gran Abs 0.12(H) 0.00 - 0.04 x10(3)/[facility] Blood 02/20/2024 4:23 AM EDT 02/20/2024 4:42 AM EDT Narrative Resulting Agency Comment Spec In Lab Minnie FRENCH HEMATOLOGY CECILIO ALEMAN [facility] [place] [address] * (ABNORMAL) Hemogram (02/20/2024 4:23 AM EDT) WBC 12.7(H) 4.0 - 9.5 x10(3)/[facility] RBC 4.26(L) 4.58 - 5.54 x10(6)/[facility] Hemoglobin 12.3(L) 13.7 - 16.5 g/dL [facility] Hematocrit 37.1(L) 40.5 - 48.5 % [facility] MCV 87.1 82.9 - 93.1 fL [facility] MCH 28.9 27.5 - 32.1 pg [facility] MCHC 33.2 32.0 - 35.7 g/dL [facility] Platelets 88(L) 145 - 357 x10(3)/[facility] RDWSD 43.5 36.0 - 45.0 [facility] RDWCV 13.7 11.4 - 13.8 % [facility] MPV 10.2 7.6 - 12.9 [facility] nRBC % Auto 0.0 % [facility] nRBC Abs Auto 0.000 0.000 - 0.000 x10(3)/[facility] Blood 02/20/2024 4:23 AM EDT 02/20/2024 4:42 AM EDT Narrative Resulting Agency Comment Spec In Lab Minnie FRENCH HEMATOLOGY CECILIO ALEMAN [facility] [place] [address] * (ABNORMAL) Basic Metabolic Panel (non-fasting) (02/20/2024 4:23 AM EDT) Glucose Lvl 113 65 - 199 mg/dL [facility] Comment:Diabetes: >=200 mg/d L plus symptoms BUN 20 10 - 20 mg/dL [facility] Comment:result rechecked-KS Creatinine 0.71(L) 0.80 - 1.50 mg/dL [facility] Sodium 135 135 - 145 mmol/L [facility] Potassium 3.9 3.5 - 5.0 mmol/L [facility] Comment: Please note: ??Patients with WBC >100,000 may have falsely elevated Potassium levels. ??For accurate Potassium quantification in these patients send serum separator tube (gold top) for subsequent determinations. ??Contact the Clinical Chemistry Laboratory if there are any questions. Chloride 102 98 - 107 mmol/L [facility] CO2 25 22 - 31 mmol/L [facility] Anion Gap 8 5 - 15 mmol/L [facility] Calcium 8.7 8.5 - 10.5 mg/dL [facility] Comment:result rechecked-[place] Estimated GFR 102 >=60 mL/min/1. 73 m?? [facility] Comment: This patient's estimated GFR was [...] and symptoms in addition to eGFR. Blood 02/20/2024 4:23 AM EDT 02/20/2024 4:42 AM EDT Narrative Resulting Agency Comment Spec In Lab Zak Graham MD CHEMISTRY ORDERABLE S Performing Organization Address [facility] Co de Phone Number [facility] [place] [address] * Potassium (02/19/2024 3:57 AM EDT) Potassium 4.3 3.5 - 5.0 mmol/L [facility] Comment: Please note: ??Patients with WBC >100,000 may have falsely elevated Potassium levels. ??For accurate Potassium quantification in these patients send serum separator tube (gold top) for subsequent determinations. ??Contact the Clinical Chemistry Laboratory if there are any questions. Blood 02/19/2024 3:57 AM EDT 02/19/2024 4:19 AM EDT Narrative Resulting Agency Comment Spec In Lab Zak Graham MD CHEMISTRY ORDERABLE S Performing Organization Address [facility] Co de Phone Number [facility] [place] [address] * POCT Glucose (02/18/2024 8:24 AM EDT) POC Glucose 157 65 - 199 mg/dL [facility] Comment: Supplemental ranges: <140 mg/dL before meals <180 mg/dL all other times of the day Blood 02/18/2024 8:24 AM EDT 02/18/2024 8:24 AM EDT Zak Graham MD POINT OF CARE TEST ORDERABLES Performing Organization Address City/[facility]/[place] [address] * Scan, Peripheral Blood (02/18/2024 1:40 AM EDT) Plat Estimate Decreased [facility] RBC Morphology Normal [facility] Blood 02/18/2024 1:40 AM EDT 02/18/2024 1:56 AM EDT Narrative Resulting Agency Comment Spec In Lab Neftali FRENCH HEMATOLOGY ORDER OLE Performing Organization Address City/[facility]/ZIP Co de Phone Number [facility] [place] [address] * (ABNORMAL) Differential, Automated (02/18/2024 1:40 AM EDT) [employer] Signature Neutrophils % 87.1 % [facility] Neutr Abs (ANC) 15.03(H) 1.70 - 6.10 x10(3)/mc L [facility] Lymphocytes % 3.0 % [facility] Lymphocytes Abs 0.5(L) 0.9 - 3.2 x10(3)/mc L [facility] Monocytes % 9.1 % [facility] Monocyte Abs 1.6(H) 0.3 - 0.9 x10(3)/mc L [facility] Eosinophils % 0.0 % [facility] Eosinophils Abs 0.0 0.0 - 0.4 x10(3)/mc L [facility] Basophils % 0.2 % [facility] Basophils Abs 0.0 0.0 - 0.1 x10(3)/mc L [facility] Immature Gran % 0.60 % [facility] Comment: Immature granulocytes(IG's)percentage and absolute count will include metamyelocytes, myelocytes, and promyelocytes. Blood smears from CBCs yielding IG's will be scanned manually for concordance. If this scan disagrees with the automated IG or if promyelocytes are noted, a manual differential will be performed. [place] Gran Abs 0.10(H) 0.00 - 0.04 x10(3)/ L [facility] Blood 02/18/2024 1:40 AM EDT 02/18/2024 1:56 AM EDT Narrative Resulting Agency Comment Spec In Lab Neftali FRENCH HEMATOLOGY ORDER OLE [facility] [place] [address] * (ABNORMAL) Hemogram (02/18/2024 1:40 AM EDT) WBC 17.2(H) 4.0 - 9.5 x10(3)/[facility] RBC 4.71 4.58 - 5.54 x10(6)/[facility] Hemoglobin 13.7 13.7 - 16.5 g/dL [facility] Hematocrit 39.2(L) 40.5 - 48.5 % [facility] MCV 83.2 82.9 - 93.1 fL [facility] MCH 29.1 27.5 - 32.1 pg [facility] MCHC 34.9 32.0 - 35.7 g/dL [facility] Platelets 147 145 - 357 x10(3)/[facility] RDWSD 39.9 36.0 - 45.0 [facility] RDWCV 13.2 11.4 - 13.8 % [facility] MPV 9.9 7.6 - 12.9 [facility] nRBC % Auto 0.0 % [facility] nRBC Abs Auto 0.000 0.000 - 0.000 x10(3)/mcL [facility] Blood 02/18/2024 1:40 AM EDT 02/18/2024 1:56 AM EDT Narrative Resulting Agency Comment Spec In Lab Neftali FRENCH HEMATOLOGY ORDER LOE [facility] [place] [address] * (ABNORMAL) Basic Metabolic Panel (non-fasting) (02/18/2024 1:40 AM EDT) Glucose Lvl 176 65 - 199 mg/dL [facility] Comment:Diabetes: >=200 mg/d L plus symptoms BUN 10 10 - 20 mg/dL [facility] Creatinine 0.65(L) 0.80 - 1.50 mg/dL [facility] Sodium 135 135 - 145 mmol/L [facility] Potassium 4.2 3.5 - 5.0 mmol/L [facility] Comment: Please note: ??Patients with WBC >100,000 may have falsely elevated Potassium levels. ??For accurate Potassium quantification in these patients send serum separator tube (gold top) for subsequent determinations. ??Contact the Clinical Chemistry Laboratory if there are any questions. Chloride 106 98 - 107 mmol/L [facility] CO2 20(L) 22 - 31 mmol/L [facility] Anion Gap 9 5 - 15 mmol/L [facility] Calcium 7.6(L) 8.5 - 10.5 mg/dL [facility] Estimated GFR 105 >=60 mL/min/1. 73 m?? [facility] Comment: This patient's estimated GFR was [...] and symptoms in addition to eGFR. Blood 02/18/2024 1:40 AM EDT 02/18/2024 1:56 AM EDT Narrative Resulting Agency Comment Spec In Lab Zak Graham MD CHEMISTRY ORDERABLE S [facility] [place] [address] * (ABNORMAL) Troponin (02/18/2024 1:40 AM EDT) Troponin-T HS 342(H) <=22 ng/L [facility] Comment: This patient's troponin T concentration [...] troponin value can be found in the [facility] Test Catalog Troponin - [facility] Test Catalog Reference: Fourth [place] Definition of Myocardial Infarction. Journal of the [place] [employer] 2018;72:6675-1102 Blood 02/18/2024 1:40 AM EDT 02/18/2024 1:56 AM EDT Narrative Resulting Agency Comment Spec In Lab Zak Graham MD CHEMISTRY ORDERABLE S Performing Organization Address [facility] Co de Phone Number [facility] [place] [address] * POCT Glucose (02/17/2024 8:13 PM EDT) POC Glucose 142 65 - 199 mg/dL [facility] Comment: Supplemental ranges: <140 mg/dL before meals <180 mg/dL all other times of the day Blood 02/17/2024 8:13 PM EDT 02/17/2024 8:13 PM EDT Zak Grahma MD POINT OF CARE TEST ORDERABLES Performing Organization Address [facility] Co de Phone Number [facility] [place] [address] * POCT Glucose (02/17/2024 5:42 PM EDT) POC Glucose 160 65 - 199 mg/dL [facility] Comment: Supplemental ranges: <140 mg/dL before meals <180 mg/dL all other times of the day Blood 02/17/2024 5:42 PM EDT 02/17/2024 5:42 PM EDT Zak Graham MD POINT OF CARE TEST ORDERABLES Performing Organization Address [facility] Co de Phone Number [facility] [place] [address] * Hemoglobin (02/17/2024 5:42 PM EDT) Hemoglobin 13.7 13.7 - 16.5 g/dL [facility] Blood 02/17/2024 5:42 PM EDT 02/17/2024 6:10 PM EDT Narrative Resulting Agency Comment Spec In Lab Zak Graham MD HEMATOLOGY ORDERABL ES Performing Organization Address City/[facility]/ZIP Co de Phone Number [facility] [place] [address] * Potassium (02/17/2024 5:42 PM EDT) Potassium 4.3 3.5 - 5.0 mmol/L [facility] Comment: Please note: ??Patients with WBC >100,000 may have falsely elevated Potassium levels. ??For accurate Potassium quantification in these patients send serum separator tube (gold top) for subsequent determinations. ??Contact the Clinical Chemistry Laboratory if there are any questions. Blood 02/17/2024 5:42 PM EDT 02/17/2024 6:10 PM EDT Narrative Resulting Agency Comment Spec In Lab aZk Graham MD CHEMISTRY ORDERABLE S Performing Organization Address [facility] Co de Phone Number [facility] [place] [address] * (ABNORMAL) BLOOD GAS 2 ARTERIAL (02/17/2024 4:18 PM EDT) pH Art 7.34(L) 7.35 - 7.45 [facility] pCO2 Art 40 35 - 45 mmHg [facility] pO2 Art 78(L) 85 - 104 mmHg [facility] HCO3 Art 20.8 20.0 - 26.0 mmol/L [facility] BE Art -5.1(L) -3.0 - 3.0 mmol/L [facility] Hgb Blood Gas 14.6 13.7 - 16.5 g/dL [facility] O2HB Art 93.0(L) 94.0 - 97.0 % [facility] COHB Art 0.3 % [facility] Comment: Nonsmokers: 0.5-1.5% COHB Smokers: Variable, but usually less than 10% Toxic: 20-30% COHB Lethal: Greater than 60% COHB METHB Art 0.8 <=1.5 % [facility] Na Whole Blood 136 135 - 145 mmol/L [facility] K Whole Blood 4.1 3.5 - 5.0 mmol/L [facility] Comment: Please note: Patients with WBC >100,000 may have falsely elevated Potassium levels. Contact the Clinical Chemistry Laboratory if there are any questions. ICa Whole Blood 1.10(L) 1.15 - 1.33 mmol/L [facility] Comment: Note: ??Total bilirubin higher than 20 mg/dL may lead to falsely low ionized calcium. CL Whole Blood 105 98 - 107 mmol/L [facility] Gluc Whole Bld 159 65 - 199 mg/dL [facility] Comment:Diabetes: >=200 mg/d L plus symptoms. Lactate WB 1.2 0.5 - 2.2 mmol/L [facility] FIO2 Art 40 % [facility] PF Ratio Art 195 [facility] Blood 02/17/2024 4:18 PM EDT 02/17/2024 4:18 PM EDT Zak Graham MD CHEMISTRY ORDERABLE S Performing Organization Address City/State/[facility] Co de Phone Number [facility] [place] [address] * XR Chest One View (02/17/2024 1:44 PM EDT) [email or web address] WORKSTATION ID [id number] RAD Anatomical Region Laterality Modality Chest N/A Digital Radiogra phy Impressions 02/17/2024 2:12 PM EDT 1. ??No definite pleural fluid collection or pneumothorax. 2. ??Right IJ [place]a catheter tip terminates in a descending branch of the right pulmonary artery. Suggest catheter retraction. 3. ??Additional support lines and tubes as above. Thank you for letting us participate in the care of this patient. ??If you are a health care provider and have any questions regarding this report, please contact the number below. ??For patients who have questions please contact the health caretaker that requested your imaging first. ? Electronically signed by: Denzel Hankins MD, [facility] ??([phone]), at 02/17/2024 2:12 PM Narrative 02/17/2024 2:12 PM EDT EXAMINATION: XR CHEST ONE VIEW CLINICAL HISTORY: s/p avr/cabg eval effusions TECHNIQUE: 1 view of the chest COMPARISON: Chest x-ray 01/09/2024, chest CT 02/03/2024 FINDINGS: ET tube tip terminates 5.2 cm above the carlos. Right IJ [place]aila catheter tip terminates in a descending branch [...] 5.2 cm above the carlos. Right IJ [place]-Ganzcatheter tip terminates in a descending branch of [...] fluid collection or pneumothorax. 2. Right IJ [place]a catheter tip terminates in a descending branch ofthe right pulmonary artery. Suggest catheter retraction. 3. Additional support lines and tubes as above. Thank you for letting us participate in the care of this patient. If youare a health care provider and have any questions regarding this report,please contact the number below. For patients who have questions please contactthe health caretaker that requested your imaging first. Electronically signed by: Denzel Hankins MD, [facility]([phone]), at 02/17/2024 2:12 PM Zak Graham MD IMG DX ORDERABLES * (ABNORMAL) BLOOD GAS 2 ARTERIAL (02/17/2024 1:31 PM EDT) pH Art 7.35 7.35 - 7.45 [facility] pCO2 Art 39 35 - 45 mmHg [facility] pO2 Art 320(H) 85 - 104 mmHg [facility] HCO3 Art 21.4 20.0 - 26.0 mmol/L [facility] BE Art -4.2(L) -3.0 - 3.0 mmol/L [facility] Hgb Blood Gas 14.1 13.7 - 16.5 g/dL [facility] O2HB Art 97.9(H) 94.0 - 97.0 % [facility] LABORATORY COHB Art 0.3 % [facility] Comment: Nonsmokers: 0.5-1.5% COHB Smokers: Variable, but usually less than 10% Toxic: 20-30% COHB Lethal: Greater than 60% COHB METHB Art 0.7 <=1.5 % [facility] Na Whole Blood 137 135 - 145 mmol/L [facility] K Whole Blood 4.2 3.5 - 5.0 mmol/L [facility] Comment: Please note: Patients with WBC >100,000 may have falsely elevated Potassium levels. Contact the Clinical Chemistry Laboratory if there are any questions. ICa Whole Blood 1.13(L) 1.15 - 1.33 mmol/L [facility] Comment: Note: ??Total bilirubin higher than 20 mg/dL may lead to falsely low ionized calcium. CL Whole Blood 108(H) 98 - 107 mmol/L [facility] Gluc Whole Bld 136 65 - 199 mg/dL [facility] Comment:Diabetes: >=200 mg/d L plus symptoms. Lactate WB 1.1 0.5 - 2.2 mmol/L [facility] FIO2 Art 100 % [facility] PF Ratio Art 320 [facility] Blood 02/17/2024 1:31 PM EDT 02/17/2024 1:31 PM EDT Zak Graham MD CHEMISTRY ORDERABLE S Performing Organization Address City/[facility] Co de Phone Number [facility] [place] [address] * (ABNORMAL) Coox2 (02/17/2024 1:21 PM EDT) pO2 Coox 44 mmHg [facility] Hgb Blood Gas 13.1(L) 13.7 - 16.5 g/dL [facility] O2HB Coox 76.4 % [facility] COHB Coox 0.3 % [facility] Comment: Nonsmokers: 0.5-1.5% COHB Smokers: Variable, but usually less than 10% Toxic: 20-30% COHB Lethal: Greater than 60% COHB METHB Coox 0.8 <=1.5 % [facility] Source Coox Mixed Venous [facility] Blood 02/17/2024 1:21 PM EDT 02/17/2024 1:21 PM EDT Zak Graham MD CHEMISTRY ORDERABLE S [facility] [place] [address] * (ABNORMAL) BLOOD GAS 2 ARTERIAL (02/17/2024 12:14 PM EDT) pH Art 7.39 7.35 - 7.45 [facility] pCO2 Art 40 35 - 45 mmHg [facility] pO2 Art 338(H) 85 - 104 mmHg [facility] HCO3 Art 23.7 20.0 - 26.0 mmol/L [facility] BE Art -1.3 -3.0 - 3.0 mmol/L [facility] Hgb Blood Gas 11.0(L) 13.7 - 16.5 g/dL [facility] O2HB Art 98.8(H) 94.0 - 97.0 % [facility] COHB Art 0.3 % [facility] Comment: Nonsmokers: 0.5-1.5% COHB Smokers: Variable, but usually less than 10% Toxic: 20-30% COHB Lethal: Greater than 60% COHB METHB Art 0.3 <=1.5 % [facility] Na Whole Blood 135 135 - 145 mmol/L [facility] K Whole Blood 5.1(H) 3.5 - 5.0 mmol/L [facility] Comment: Please note: Patients with WBC >100,000 may have falsely elevated Potassium levels. Contact the Clinical Chemistry Laboratory if there are any questions. ICa Whole Blood 1.13(L) 1.15 - 1.33 mmol/L [facility] Comment: Note: ??Total bilirubin higher than 20 mg/dL may lead to falsely low ionized calcium. CL Whole Blood 106 98 - 107 mmol/L [facility] Gluc Whole Bld 132 65 - 199 mg/dL [facility] Comment:Diabetes: >=200 mg/d L plus symptoms. Lactate WB 1.4 0.5 - 2.2 mmol/L [facility] Blood 02/17/2024 12:1 4 PM EDT 02/17/2024 12:14 PM EDT Zak Graham MD CHEMISTRY ORDERABLE S Performing Organization Address [facility] Co de Phone Number [facility] [place] [address] * (ABNORMAL) Fibrinogen (02/17/2024 12:10 PM EDT) Fibrinogen 154(L) 200 - 393 mg/dL [facility] Comment: OR Result called by ?? LOMARL OR Results read back by: ? silvia pagan at 2024-02-17 12:41:48 A fibrinogen level >100 mg/dL is adequate for hemostasis in most patients without underlying bleeding disorders. Blood 02/17/2024 12:1 0 PM EDT 02/17/2024 12:19 PM EDT Narrative Resulting Agency Comment Spec In Lab Tara York MD HEMATOLOGY ORDERABLE S Performing Organization Address [facility] de Phone Number [facility] [place] [address] * (ABNORMAL) Thrombin time (02/17/2024 12:10 PM EDT) Thrombin Time 18(H) 10 - 17 sec [facility] Comment: OR Result called by ?? LOMARL OR Results read back by: ? silvia pagan at 2024-02-17 12:41:48 A prolongation in [...] MD HEMATOLOGY ORDERABLE S Performing Organization Address [facility]/ZIP Co de Phone Number [facility] [place] [address] * APTT (02/17/2024 12:10 PM EDT) PTT 33 25 - 37 sec [facility] Comment: OR Result called by ?? LOMARL OR Results read back by: ? silvia pagan at 2024-02-17 12:41:48 The PTT is NOT appropriate for heparin monitoring. Use the Anti-Xa level for heparin monitoring (HEP UFH) or LMWH monitoring (HEP LMW). A PTT less than 37 seconds generally indicates adequate hemostasis. Blood 02/17/2024 12:1 0 PM EDT 02/17/2024 12:19 PM EDT Narrative Resulting Agency Comment Spec In Lab Tara York MD HEMATOLOGY ORDERABLE S Performing Organization Address [facility] Co de Phone Number [facility] [place] [address] * (ABNORMAL) Prothrombin Time (02/17/2024 12:10 PM EDT) PT 16.7(H) 9.4 - 12.5 sec [facility] Comment: OR Result called by ?? LOMARL OR Results read back by: ? silvia pagan at 2024-02-17 12:41:48 INR 1.5 [facility] Comment: OR Result called by ?? LOMARL OR Results read back by: ? silvia pagan at 2024-02-17 12:41:48 An INR <2.0 [...] Lab Tara York MD [place] [address] * (ABNORMAL) Hemogram (02/17/2024 12:10 PM EDT) WBC 11.1(H) 4.0 - 9.5 x10(3)/[facility] LABORATORY RBC 3.50(L) 4.58 - 5.54 x10(6)/[facility] Hemoglobin 10.4(L) 13.7 - 16.5 g/dL [facility] Hematocrit 30.2(L) 40.5 - 48.5 % [facility] Comment: This result has been called to SILVIA PAGAN by Eddie López on 02 17 2024 at 1226, and has been read back. MCV 86.3 82.9 - 93.1 [facility]ATORY MCH 29.7 27.5 - 32.1 pg [facility] MCHC 34.4 32.0 - 35.7 g/dL [facility] Platelets 118(L) 145 - 357 x10(3)/[facility] LABORATORY RDWSD 40.2 36.0 - 45.0 [facility]ATORY RDWCV 12.8 11.4 - 13.8 % [facility] MPV 9.5 7.6 - 12.9 [facility]ORY nRBC % Auto 0.0 % [facility] nRBC Abs Auto 0.000 0.000 - 0.000 x10(3)/[facility] Blood 02/17/2024 12:1 0 PM EDT 02/17/2024 12:19 PM EDT Narrative Resulting Agency Comment Spec In Lab Tara York MD HEMATOLOGY ORDERABLE S [facility] [place] [address] * (ABNORMAL) BLOOD GAS 2 ARTERIAL (02/17/2024 11:43 AM EDT) pH Art 7.38 7.35 - 7.45 [facility] pCO2 Art 40 35 - 45 mmHg [facility] pO2 Art 304(H) 85 - 104 mmHg [facility] HCO3 Art 23.2 20.0 - 26.0 mmol/L [facility] BE Art -1.9 -3.0 - 3.0 mmol/L [facility] Hgb Blood Gas 11.1(L) 13.7 - 16.5 g/dL [facility] O2HB Art 98.6(H) 94.0 - 97.0 % [facility] COHB Art 0.3 % [facility] Comment: Nonsmokers: 0.5-1.5% COHB Smokers: Variable, but usually less than 10% Toxic: 20-30% COHB Lethal: Greater than 60% COHB METHB Art 0.3 <=1.5 % [facility] Na Whole Blood 133(L) 135 - 145 mmol/L [facility] K Whole Blood 6.2(Critic al) 3.5 - 5.0 mmol/L [facility] Comment: Noted by biomedical instrument technician. Please note: Patients with WBC >100,000 may have falsely elevated Potassium levels. Contact the Clinical Chemistry Laboratory if there are any questions. ICa Whole Blood 0.97(L) 1.15 - 1.33 mmol/L [facility] Comment: Note: ??Total bilirubin higher than 20 mg/dL may lead to falsely low ionized calcium. CL Whole Blood 104 98 - 107 mmol/L [facility] Gluc Whole Bld 128 65 - 199 mg/dL [facility] Comment:Diabetes: >=200 mg/d L plus symptoms. Lactate WB 1.1 0.5 - 2.2 mmol/L [facility] Blood 02/17/2024 11:4 3 AM EDT 02/17/2024 11:43 AM EDT Zak Graham MD CHEMISTRY ORDERABLE S [facility] [place] [address] * (ABNORMAL) BLOOD GAS 2 ARTERIAL (02/17/2024 11:08 AM EDT) pH Art 7.38 7.35 - 7.45 [facility] pCO2 Art 38 35 - 45 mmHg [facility] pO2 Art 334(H) 85 - 104 mmHg [facility] HCO3 Art 22.0 20.0 - 26.0 mmol/L [facility] BE Art -3.2(L) -3.0 - 3.0 mmol/L [facility] Hgb Blood Gas 10.8(L) 13.7 - 16.5 g/dL [facility] O2HB Art 98.7(H) 94.0 - 97.0 % [facility] COHB Art 0.3 % [facility] Comment: Nonsmokers: 0.5-1.5% COHB Smokers: Variable, but usually less than 10% Toxic: 20-30% COHB Lethal: Greater than 60% COHB METHB Art 0.3 <=1.5 % [facility] Na Whole Blood 131(L) 135 - 145 mmol/L [facility] K Whole Blood 6.4(Critic al) 3.5 - 5.0 mmol/L [facility] Comment: Noted by biomedical instrument technician. Please note: Patients with WBC >100,000 may have falsely elevated Potassium levels. Contact the Clinical Chemistry Laboratory if there are any questions. ICa Whole Blood 0.98(L) 1.15 - 1.33 mmol/L [facility] Comment: Note: ??Total bilirubin higher than 20 mg/dL may lead to falsely low ionized calcium. CL Whole Blood 104 98 - 107 mmol/L [facility] Gluc Whole Bld 127 65 - 199 mg/dL [facility] Comment:Diabetes: >=200 mg/d L plus symptoms. Lactate WB 1.0 0.5 - 2.2 mmol/L [facility] Blood 02/17/2024 11:0 8 AM EDT 02/17/2024 11:08 AM EDT Zak Graham MD CHEMISTRY ORDERABLE S Performing Organization Address [facility] de Phone Number [facility] [place] [address] * (ABNORMAL) Hemoglobin and Hematocrit, blood (02/17/2024 11:04 AM EDT) Pathologist [facility] Hemoglobin 9.6(L) 13.7 - 16.5 g/dL [facility] Hematocrit 28.0(L) 40.5 - 48.5 % [facility] Comment: This result has been called to SILVIA PAGAN by Eddie López on 02 17 2024 at 1120, and has been read back. Blood 02/17/2024 11:0 4 AM EDT 02/17/2024 11:12 AM EDT Narrative Resulting Agency Comment Spec In Lab Zak Graham MD HEMATOLOGY ORDERABL ES Performing Organization Address [facility] de Phone Number [facility] [place] [address] * (ABNORMAL) Platelet count (02/17/2024 11:04 AM EDT) Platelets 106(L) 145 - 357 x10(3)/mc L [facility] Plat Immature % 1.6 0.0 - 7.4 % [facility] Comment: Limitation of the Immature Platelet Fraction (IPF)-May be less reliable when the platelet count is less than 10d289/uL due to statistical imprecision. The IPF value [...] in a decreased state of production. References: [employer] The Clinical Value of the Immature Platelet Fraction (IPF) in Cell Recovery Document Number [id number] 03/2011 [employer] The Role of the Immature Platelet Fraction (IPF) in the Differential Diagnosis of Thrombocytopenia, Document [id number] V002/15/14 P002/17 Blood 02/17/2024 11:0 4 AM EDT 02/17/2024 11:12 AM EDT Narrative Resulting Agency Comment Spec In Lab Zak Graham MD HEMATOLOGY ORDERABL ES Performing Organization Address [facility] Co de Phone Number [facility] [place] [address] * (ABNORMAL) Fibrinogen (02/17/2024 11:04 AM EDT) Pathologist [facility] Fibrinogen 149(L) 200 - 393 mg/dL [facility] Comment: OR Result called by ?? SALVLT OR Results read back by: ? Silvia Pagan at 2024-02-17 11:30:47 A fibrinogen level >100 mg/dL is adequate for hemostasis in most patients without underlying bleeding disorders. Blood 02/17/2024 11:0 4 AM EDT 02/17/2024 11:12 AM EDT Narrative Resulting Agency Comment Spec In Lab Zak Graham MD HEMATOLOGY ORDERABL ES Performing Organization Address [facility] Co de Phone Number [facility] [place] [address] * (ABNORMAL) BLOOD GAS 2 ARTERIAL (02/17/2024 10:41 AM EDT) Pathologist [facility] pH Art 7.37 7.35 - 7.45 [facility] pCO2 Art 44 35 - 45 mmHg [facility] pO2 Art 335(H) 85 - 104 mmHg [facility] HCO3 Art 24.9 20.0 - 26.0 mmol/L [facility] BE Art -0.4 -3.0 - 3.0 mmol/L [facility] Hgb Blood Gas 11.5(L) 13.7 - 16.5 g/dL [facility] O2HB Art 98.9(H) 94.0 - 97.0 % [facility] COHB Art 0.1 % [facility] Comment: Nonsmokers: 0.5-1.5% COHB Smokers: Variable, but usually less than 10% Toxic: 20-30% COHB Lethal: Greater than 60% COHB METHB Art 0.3 <=1.5 % [facility] Na Whole Blood 132(L) 135 - 145 mmol/L [facility] K Whole Blood 5.9(H) 3.5 - 5.0 mmol/L [facility] Comment: Please note: Patients with WBC >100,000 may have falsely elevated Potassium levels. Contact the Clinical Chemistry Laboratory if there are any questions. ICa Whole Blood 1.02(L) 1.15 - 1.33 mmol/L [facility] Comment: Note: ??Total bilirubin higher than 20 mg/dL may lead to falsely low ionized calcium. CL Whole Blood 104 98 - 107 mmol/L [facility] Gluc Whole Bld 129 65 - 199 mg/dL [facility] Comment:Diabetes: >=200 mg/d L plus symptoms. Lactate WB 1.1 0.5 - 2.2 mmol/L [facility] Blood 02/17/2024 10:4 1 AM EDT 02/17/2024 10:41 AM EDT Zak Graham MD CHEMISTRY ORDERABLE S [facility] [place] [address] * (ABNORMAL) BLOOD GAS 2 ARTERIAL (02/17/2024 10:06 AM EDT) pH Art 7.38 7.35 - 7.45 [facility] pCO2 Art 42 35 - 45 mmHg [facility] pO2 Art 329(H) 85 - 104 mmHg [facility] HCO3 Art 24.7 20.0 - 26.0 mmol/L [facility] BE Art -0.3 -3.0 - 3.0 mmol/L [facility] Hgb Blood Gas 11.0(L) 13.7 - 16.5 g/dL [facility] O2HB Art 99.0(H) 94.0 - 97.0 % [facility] COHB Art 0.3 % [facility] Comment: Nonsmokers: 0.5-1.5% COHB Smokers: Variable, but usually less than 10% Toxic: 20-30% COHB Lethal: Greater than 60% COHB METHB Art 0.3 <=1.5 % [facility] Na Whole Blood 132(L) 135 - 145 mmol/L [facility] K Whole Blood 6.0(H) 3.5 - 5.0 mmol/L [facility] Comment: Please note: Patients with WBC >100,000 may have falsely elevated Potassium levels. Contact the Clinical Chemistry Laboratory if there are any questions. ICa Whole Blood 0.97(L) 1.15 - 1.33 mmol/L [facility] Comment: Note: ??Total bilirubin higher than 20 mg/dL may lead to falsely low ionized calcium. CL Whole Blood 102 98 - 107 mmol/L [facility] Gluc Whole Bld 123 65 - 199 mg/dL [facility] Comment:Diabetes: >=200 mg/d L plus symptoms. Lactate WB 1.1 0.5 - 2.2 mmol/L [facility] Blood 02/17/2024 10:0 6 AM EDT 02/17/2024 10:06 AM EDT Zak Graham MD CHEMISTRY ORDERABLE S [facility] [place] [address] * Surgical Pathology Report (02/17/2024 10:01 AM EDT) FINAL DIAGNOSIS (AP) [id number] ? [facility]; A The signing pathologist has (i) examined the relevant preparation(s) for the specimen(s) and (ii) rendered or confirmed the diagnosis(es). . ?Surgical Pathology DIAGNOSIS Aortic valve leaflets, excision: Valve leaflets with myxoid degeneration, nodular fibrosis and dystrophic calcifications. Electronically signed by: ?Lindsay FERNANDEZ, Livier Gonzalez Verified: ??02/24/2024 13:49 ??Pathologist Performed at: ??-[facility] Dept. of [place]ology, [place] [address] Alkylation Operator: Job Brewer MD, FCAP, ??CLIA Certificate: [id number] SPECIMEN(S) SUBMITTED A - Aortic Valve Leaflets, [...] Sections Processing Blocks submitted for decalcification: A1. Tar Distillation Supervisor sections in 1 cassette labeled A1. ??ajw 02/24/2024 1:49 PM EDT [facility] AORTIC STRUCTURE / Unknown 02/17/2024 10:01 AM EDT 02/17/2024 10:01 AM EDT Zak Graham MD PATHOLOGY/[place] [address] * Specimen to Pathology (02/17/2024 10:01 AM EDT) AP Specimen 02/17/2024 10:0 1 AM EDT 02/17/2024 10:01 AM EDT Narrative [facility] - 02/17/2024 10:01 AM EDT Specimen requisition ordered. ??Separate Pathology report to follow Zak Graham MD PATHOLOGY/CYTOLOGY ORDERABLES Performing Organization Address City/[facility] [place] [address] * (ABNORMAL) BLOOD GAS 2 ARTERIAL (02/17/2024 9:35 AM EDT) pH Art 7.33(L) 7.35 - 7.45 [facility] pCO2 Art 35 35 - 45 mmHg [facility] pO2 Art 318(H) 85 - 104 mmHg [facility] HCO3 Art 17.9(L) 20.0 - 26.0 mmol/L [facility] BE Art -8.0(L) -3.0 - 3.0 mmol/L [facility] Hgb Blood Gas 11.0(L) 13.7 - 16.5 g/dL [facility] O2HB Art 98.8(H) 94.0 - 97.0 % [facility] COHB Art 0.3 % [facility] Comment: Nonsmokers: 0.5-1.5% COHB Smokers: Variable, but usually less than 10% Toxic: 20-30% COHB Lethal: Greater than 60% COHB METHB Art 0.3 <=1.5 % [facility] Na Whole Blood 131(L) 135 - 145 mmol/L [facility] K Whole Blood 5.8(H) 3.5 - 5.0 mmol/L [facility] Comment: Please note: Patients with WBC >100,000 may have falsely elevated Potassium levels. Contact the Clinical Chemistry Laboratory if there are any questions. ICa Whole Blood 0.98(L) 1.15 - 1.33 mmol/L [facility] Comment: Note: ??Total bilirubin higher than 20 mg/dL may lead to falsely low ionized calcium. CL Whole Blood 101 98 - 107 mmol/L [facility] Gluc Whole Bld 122 65 - 199 mg/dL [facility] Comment:Diabetes: >=200 mg/d L plus symptoms. Lactate WB 0.8 0.5 - 2.2 mmol/L [facility] Blood 02/17/2024 9:35 AM EDT 02/17/2024 9:35 AM EDT Zak Graham MD CHEMISTRY ORDERABLE S [facility] [place] [address] * (ABNORMAL) BLOOD GAS 2 VENOUS (02/17/2024 9:34 AM EDT) pH Jose 7.22(Criti marquez) 7.32 - 7.42 [facility] Comment:Noted by biomedical instrument technician. pCO2 Jose 43 41 - 51 mmHg [facility] Comment:Noted by biomedical instrument technician. pO2 Jose 57(H) 25 - 40 mmHg [facility] Comment:Noted by biomedical instrument technician. HCO3 Jose 17.1 mmol/L [facility] Comment:Noted by biomedical instrument technician. BE Jose -10.6 mmol/L [facility] Comment:Noted by biomedical instrument technician. Hgb Blood Gas 11.2(L) 13.7 - 16.5 g/dL [facility] Comment:Noted by biomedical instrument technician. O2HB Jose 86.5 % [facility] Comment:Noted by biomedical instrument technician. COHB Jose 0.3 % [facility] Comment: Noted by biomedical instrument technician. Nonsmokers: 0.5-1.5% COHB Smokers: Variable, but usually less than 10% Toxic: 20-30% COHB Lethal: Greater than 60% COHB METHB Jose 0.0 <=1.5 % [facility] Comment:Noted by biomedical instrument technician. Na Whole Blood 156(H) 135 - 145 mmol/L [facility] Comment:Noted by biomedical instrument technician. K Whole Blood 5.5(H) 3.5 - 5.0 mmol/L [facility] Comment: Noted by biomedical instrument technician. Please note: Patients with WBC >100,000 may have falsely elevated Potassium levels. Contact the Clinical Chemistry Laboratory if there are any questions. ICa Whole Blood 1.03(L) 1.15 - 1.33 mmol/L [facility] Comment: Noted by biomedical instrument technician. Note: ??Total bilirubin higher than 20 mg/dL may lead to falsely low ionized calcium. CL Whole Blood 100 98 - 107 mmol/L [facility] Comment:Noted by biomedical instrument technician. Gluc Whole Bld 132 65 - 199 mg/dL [facility] Comment: Noted by biomedical instrument technician. Diabetes: >=200 mg/dL plus symptoms Lactate WB 1.0 0.5 - 2.2 mmol/L [facility] Comment:Noted by biomedical instrument technician. BGas Source Venous [facility] Blood 02/17/2024 9:34 AM EDT 02/17/2024 9:34 AM EDT Zak Graham MD CHEMISTRY ORDERABLE S [facility] [place] [address] * (ABNORMAL) BLOOD GAS 2 ARTERIAL (02/17/2024 8:07 AM EDT) pH Art 7.43 7.35 - 7.45 [facility] pCO2 Art 34(L) 35 - 45 mmHg [facility] pO2 Art 581(H) 85 - 104 mmHg [facility] HCO3 Art 21.7 20.0 - 26.0 mmol/L [facility] BE Art -2.6 -3.0 - 3.0 mmol/L [facility] Hgb Blood Gas 14.5 13.7 - 16.5 g/dL [facility] O2HB Art 99.0(H) 94.0 - 97.0 % [facility] COHB Art 0.4 % [facility] Comment: Nonsmokers: 0.5-1.5% COHB Smokers: Variable, but usually less than 10% Toxic: 20-30% COHB Lethal: Greater than 60% COHB METHB Art 0.3 <=1.5 % [facility] Na Whole Blood 139 135 - 145 mmol/L [facility] K Whole Blood 4.0 3.5 - 5.0 mmol/L [facility] Comment: Please note: Patients with WBC >100,000 may have falsely elevated Potassium levels. Contact the Clinical Chemistry Laboratory if there are any questions. ICa Whole Blood 1.09(L) 1.15 - 1.33 mmol/L [facility] Comment: Note: ??Total bilirubin higher than 20 mg/dL may lead to falsely low ionized calcium. CL Whole Blood 106 98 - 107 mmol/L [facility] Gluc Whole Bld 100 65 - 199 mg/dL [facility] Comment:Diabetes: >=200 mg/d L plus symptoms. Lactate WB 1.3 0.5 - 2.2 mmol/L [facility] Blood 02/17/2024 8:07 AM EDT 02/17/2024 8:07 AM EDT Zak Graham MD CHEMISTRY ORDERABLE S [facility] [place] [address] * POCT Glucose (02/17/2024 6:38 AM EDT) POC Glucose 98 65 - 199 mg/dL [facility] Comment: Supplemental ranges: <140 mg/dL before meals <180 mg/dL all other times of the day Blood 02/17/2024 6:38 AM EDT 02/17/2024 6:38 AM EDT Zak Graham MD POINT OF CARE TEST ORDERABLES Performing Organization Address [facility]/State/[facility] Co de Phone Number [facility] [place] [address] * Transesophageal Echo/OR (02/17/2024 6:33 AM EDT) Anatomical Region Laterality Modality Cardiac Other 02/17/2024 6:33 AM EDT Narrative 02/17/2024 4:08 PM EDT ? Version: 1 Name: VIRAJ GARCIA ?Study Date: 02/17/2024, 6: 33 AM [...] York MD - 02/17/2024 Version: 1 Name: VIRAJ GARCIA Study Date: 02/17/2024,6: 33 AM Patient [...] [facility]-operative evaluation of cardiac function [...] York MD ECHO ORDERABLES * Scan Doc: Implantable Devices (02/17/2024 12:00 AM EDT) Narrative 02/17/2024 12:00 AM EDT Ordered by an unspecified provider. Scanning Provider MEDIA MGR SCAN EXT O RDR/RSLT * Scan Doc: Lab (02/17/2024 12:00 AM EDT) Narrative 02/17/2024 12:00 AM EDT Ordered by an unspecified provider. Scanning Provider MEDIA MGR SCAN EXT O RDR/RSLT documented in this encounter Visit Diagnoses Diagnosis Aortic stenosis- Primary Aortic valve disorders Aortic valve stenosis, etiology of cardiac valve disease unspecified S/P AVR Heart valve replaced by other means documented in this encounter Admitting Diagnoses Diagnosis Aortic stenosis Aortic valve disorders documented in this encounter Administered Medications Inactive Administered Medications - up to 3 most recent administrations Medication Order MAR Action Action Date Dose Rate Site acetaminophen (Ofirmev) (1,000 mg/100 mL) infusion 1,000 mg 1,000 mg, Intravenous, at 400 mL/hr, Administer over 15 Minutes, EVERY 6 HOURS SCHEDULED, 4 doses, First dose on Sat02/17/24 at 1400, Last dose on Sat02/18/24 at 0600, Maximum dose of acetaminophen is 4,000 mg from all sources in 24 hours. When ordered for pain, acetaminophen should be given even when other ordered pain medications are indicated., Routine, Is ketorolac (Toradol) IV contraindicated? Yes, Can this patient tolerate oral medications or suppositories? No Given 02/18/2024 5:07 AM EDT 1,000 mg 400 mL/hr Given 02/17/2024 11:52 PM EDT 1,000 mg 400 mL/hr Given 02/17/2024 5:32 PM EDT 1,000 mg 400 mL/hr acetaminophen (Tylenol) tablet 975 mg 975 mg, Oral, EVERY 6 HOURS SCHEDULED, First dose on Sat02/18/24 at 1200, Until Discontinued, For pain when taking by mouth. Maximum dose of acetaminophen is 4,000 mg from all sources in 24 hours. When ordered for pain, acetaminophen should be given even when other ordered pain medications are indicated., Routine Given 02/24/2024 4:30 AM EDT 975 mg Given 02/23/2024 11:24 PM EDT 975 mg Given 02/23/2024 5:01 PM EDT 975 mg albumin (human) 5% 250 mL intravenous solution 12.5 g, Intravenous, EVERY 15 MIN PRN, 2 doses, Starting on Sat02/17/24 at 1307, Until Sat02/17/24 at 1454, Other, As needed for volume replacement to maintain cardiac index greater than or equal to 2.0 L/min/M2, 1 bottle (unit) = 12.5 grams / 250 mL (Total Dose = 25 grams = 2 bottles), STAT New Bag 02/17/2024 2:39 PM EDT 12.5 g New Bag 02/17/2024 1:54 PM EDT 12.5 g albumin (human) 5% 250 mL intravenous solution 12.5 g, Intravenous, ONCE, 1 dose, On Sat02/18/24 at 1030, Call pharmacy for any issues., Routine New Bag 02/18/2024 9:55 AM EDT 12.5 g AMIOdarone (CORDARONE) bolus from bag 150 mg 150 mg, Intravenous, Administer over 10 Minutes, ONCE, 1 dose, On Sat02/18/24 at 1415, Warning Vesicant/Irritant Medication , Routine Bolus from Bag 02/18/2024 2:02 PM EDT 150 mg AMIOdarone (CORDARONE) bolus from bag 150 mg 150 mg, Intravenous, Administer over 10 Minutes, ONCE, 1 dose, On Starla 02/20/24 at 0700, Warning Vesicant/Irritant Medication , Routine Bolus from Bag 02/20/2024 6:47 AM EDT 150 mg AMIOdarone (CORDARONE) bolus from bag 150 mg 150 mg, Intravenous, Administer over 10 Minutes, ONCE, 1 dose, On Starla 02/20/24 at 2115, Warning Vesicant/Irritant Medication , Routine Bolus from Bag 02/20/2024 8:59 PM EDT 150 mg AMIOdarone (Nexterone) (1.8 mg/mL) in dextrose (iso-osmotic) infusion 1 mg/min (33.3333 mL/hr, rounded to 33.3 mL/hr), Intravenous, CONTINUOUS, Starting on Sat02/18/24 at 1415, Until Sat02/18/24 at 2014, Rotate IV site every 12 hours to prevent phlebitis Use in-line filter. Warning Vesicant/Irritant Medication New Bag 02/18/2024 5:24 PM EDT 1 mg/min 33.3 mL/hr New Bag 02/18/2024 2:26 PM EDT 1 mg/min 33.3 mL/hr AMIOdarone (Nexterone) (1.8 mg/mL) in dextrose (iso-osmotic) infusion 0.5 mg/min (16.6667 mL/hr, rounded to 16.7 mL/hr), Intravenous, CONTINUOUS, Starting on Sat02/18/24 at 2015, Until Sat02/19/24 at 1500, After 24 hours from the start time of the AMIOdarone infusion, call MD regarding continuing infusion or changing to oral dosing. Rotate IV site every 12 hours to prevent phlebitis Use in-line filter. Warning Vesicant/Irritant Medication Rate/Dose Verify 02/19/2024 7:31 AM EDT 0.5 mg/min 16.7 mL/hr New Bag 02/19/2024 1:46 AM EDT 0.5 mg/min 16.7 mL/hr New 02/18/2024 8:16 PM EDT 0.5 mg/min 16.7 mL/hr AMIOdarone (Nexterone) (1.8 mg/mL) in dextrose (iso-osmotic) infusion 1 mg/min (33.3333 mL/hr, rounded to 33.3 mL/hr), Intravenous, CONTINUOUS, Starting on Starla 02/20/24 at 0700, Until Starla 02/20/24 at 0916, Rotate IV site every 12 hours to prevent phlebitis Use in-line filter. Warning Vesicant/Irritant Medication Rate/Dose Verify 02/20/2024 9:13 AM EDT 1 mg/min 33.3 mL/hr New Bag 02/20/2024 7:13 AM EDT 1 mg/min 33.3 mL/hr AMIOdarone (Nexterone) (1.8 mg/mL) in dextrose (iso-osmotic) infusion 1 mg/min (33.3333 mL/hr, rounded to 33.3 mL/hr), Intravenous, CONTINUOUS, Starting on Starla 02/20/24 at 0916, Until Sat02/21/24 at 0914, Rotate IV site every 12 hours to prevent phlebitis Use in-line filter. Warning Vesicant/Irritant Medication Rate/Dose Verify 02/21/2024 8:35 AM EDT 1 mg/min 33.3 mL/hr Rate/Dose Verify 02/21/2024 6:26 AM EDT 1 mg/min 33.3 mL /hr New Bag 02/21/2024 4:00 AM EDT 1 mg/min 33.3 mL/hr AMIOdarone (Pacerone) tablet 200 mg 200 mg, Oral, 2 TIMES DAILY, First dose on Sat02/19/24 at 0900, Until Discontinued, Routine Given 02/21/2024 8:37 AM EDT 200 mg Given 02/20/2024 8:11 PM EDT 200 mg Given 02/20/2024 9:13 AM EDT 200 mg apixaban (Eliquis) tablet 5 mg 5 mg, Oral, 2 TIMES DAILY, First dose on Sat02/21/24 at 1015, Until Discontinued, Anticoagulant, Routine, apixaban (Eliquis) Indication: Non-Valvular Atrial Fibrillation Given 02/24/2024 8:36 AM EDT 5 mg Given 02/23/2024 9:15 PM EDT 5 mg Given 02/23/2024 9:07 AM EDT 5 mg aspirin chewable tablet 81 mg 81 mg, Oral, DAILY, First dose on Sat02/23/24 at 0945, Until Discontinued, Routine Given 02/24/2024 8:35 AM EDT 81 mg Given 02/23/2024 9:10 AM EDT 81 mg aspirin EC tablet 325 mg 325 mg, Oral, DAILY, First dose on Sat02/18/24 at 0915, Until Discontinued, Routine Given 02/22/2024 8:21 AM EDT 325 mg Given 02/21/2024 8:39 AM EDT 325 mg Given 02/20/2024 9:13 AM EDT 325 mg aspirin suppository 300 mg 300 mg, Rectal, DAILY, First dose on Sat02/17/24 at 1400, Until Discontinued, Start on Post-Op Day 0, please give within 6 hours upon arrival to Unit. Give MD if unable to take PO, Routine Given 02/17/2024 1:48 PM EDT 300 mg atorvastatin (Lipitor) tablet 10 mg 10 mg, Oral, DAILY, First dose on Sat02/17/24 at 1400, Until Discontinued, Routine Given 02/24/2024 8:36 AM EDT 10 mg Given 02/23/2024 9:07 AM EDT 10 mg Given 02/22/2024 8:21 AM EDT 10 mg brimonidine (Alphagan) 0.2 % ophthalmic solution 1 drop 1 drop, Both Eyes, 2 TIMES DAILY, First dose on Sat02/18/24 at 0930, Until Discontinued, Routine Given 02/24/2024 8:43 AM EDT 1 drop Given 02/23/2024 9:17 PM EDT 1 drop Given 02/23/2024 9:08 AM EDT 1 drop chlorhexidine (Peridex) 0.12 % solution Q-Care Kit 15 mL, Oral, 2 TIMES DAILY, First dose on Sat02/17/24 at 1400, Until Discontinued, Bow teeth and / or gums. Scan the CHG vial in the [employer] Q-Care Oral Care Kit from floor stock. Ventilator-associated pneumonia prophylaxis For use in ICU/Critical care locations ONLY. Obtain kit from Floor Stock location. Scan CHG vial in the [employer] Q-Care Oral Care Kit, Routine Given 02/17/2024 2:00 PM EDT 15 mLs dexmedeTOMIDine (Precedex) (4 mcg/mL) in sodium chloride 0.9% 100 mL infusion 0-1.7 mcg/kg/hr ? 66.5 kg (0-28.2625 mL/hr, rounded to 0-28.3 mL/hr), Intravenous, CONTINUOUS, Starting on Sat02/17/24 at 1615, Until Sat02/18/24 at 0835, Titrate to sedation level of RASS Goal (-)1 to 0. Start at 0.4 mcg/kg/hr. Increase/decrease by 0.4 mcg/kg/hr every 15 minutes until goal reached. Once stable, reassess patient every 30 minutes. Do not exceed 1.7 mcg/kg/hr. Change rate only after assessing and documenting RASS. Reassess sedation scores within 30 minutes after every rate change. If under sedated, increase rate by 0.4 mcg/kg/hr. If over sedated, hold sedative until target RASS (-)1 to 0 achieved and then restart at 50% of previous rate. Call dye house helper if goal not achieved at maximum rate. If SAT is ordered, and if patient meets criteria for Spontaneous Awakening Trial, titrate per protocol., Routine Rate/Dose Change 02/17/2024 4:21 PM EDT 0.32 mcg/kg/hr 5.3 mL/hr Rate/Dose Change 02/17/2024 4:10 PM EDT 0.4 mcg/kg/hr 6.7 mL/hr Rate/Dose Verify 02/17/2024 4:00 PM EDT 0.6 mcg/kg/hr 10 m L/hr dexmedeTOMIDine (Precedex) 400 mcg/100 mL (4 mcg/mL) infusion 1 dose, Starting on Sat02/17/24 at 1528, Until Sat02/17/24 at 1532, Shayla Gold: cabinet override dextrose 5% and sodium chloride 0.45% infusion 50 mL/hr, Intravenous, CONTINUOUS, Starting on Sat02/21/24 at 1015, Until Sat02/23/24 at 0847 New Bag 02/22/2024 6:30 PM EDT 50 mL/hr 50 mL /hr New Bag 02/22/2024 1:28 AM EDT 50 mL/hr 50 mL/hr New Bag 02/21/2024 9:45 AM EDT 50 mL/hr 50 mL/hr dorzolamide (Trusopt) 2 % ophthalmic solution 1 drop 1 drop, Both Eyes, 3 TIMES DAILY, First dose on Sat02/18/24 at 0930, Until Discontinued, Routine Given 02/24/2024 8:36 AM EDT 1 drop Given 02/23/2024 9:18 PM EDT 1 drop Given 02/23/2024 3:00 PM EDT 1 drop fentaNYL (50 mcg/mL) bolus from infusion 25 mcg 25 mcg, Intravenous, EVERY 10 MIN PRN, Starting on Sat02/17/24 at 1307, Until Sat02/18/24 at 0835, Pain, For breakthrough pain (pain scale greater than 3), while intubated, For breakthrough pain (pain scale greater than 3), while intubated. Maximum dose 300 mcg over one hour, Routine Bolus from Infusion 02/17/2024 3:33 PM EDT 25 mcg fentaNYL (PF) (50 mcg/mL) infusion syringe 50 mL 0-100 mcg/hr (0-2 mL/hr), Intravenous, CONTINUOUS, Starting on Sat02/17/24 at 1400, Until Sat02/18/24 at 0835, Titrate to patient comfort, pain scale 1-3. Start at 25 mcg/hr. Increase/decrease by 25 mcg/hr every 15 minutes. Do not exceed 100 mcg/hour., Routine Rate/Dose Change 02/17/2024 9:00 PM EDT 0 mcg/hr 0 mL/hr Rate/Dose Verify 02/17/2024 8:00 PM EDT 25 mcg/hr 0.5 mL/ hr Rate/Dose Change 02/17/2024 6:00 PM EDT 25 mcg/hr 0.5 mL/ hr furosemide (Lasix) tablet 20 mg 20 mg, Oral, DAILY, First dose on Sat02/19/24 at 0900, Until Discontinued, Routine Given 02/21/2024 8:40 AM EDT 20 mg Given 02/20/2024 9:14 AM EDT 20 mg Given 02/19/2024 9:03 AM EDT 20 mg hydrALAZINE (Apresoline) (20 mg/mL) injection 20 mg 20 mg, Intravenous, EVERY 2 HOURS PRN, Starting on Sat02/18/24 at 0330, Until Sat02/18/24 at 0835, High Blood Pressure, sbp > 140, MAPs >80 Given 02/18/2024 3:33 AM EDT 20 mg HYDROmorphone (Dilaudid) tablet 2-6 mg 2-6 mg, Oral, EVERY 4 HOURS PRN, Starting on Sat02/18/24 at 1440, Until Sat02/24/24 at 1323, Pain, Give 2 mg 1 tab PO Q 4 hours PRN for pain >/= 3-5/10. Give 2 mg 2 tabs PO Q 4 hours PRN for pain >/= 6-8/10. Give 2 mg 3 tabs PO Q 4 hours PRN for pain >/= 9-10/10. Call provider for new pain management orders if pain not relieved after an appropriate amount of time or if regimen is not tolerated. Hold if patient appears over sedated. , Routine Given 02/20/2024 5:22 AM EDT 4 mg Given 02/19/2024 6:06 AM EDT 4 mg Given 02/19/2024 12:09 AM EDT 4 mg lidocaine (Lidoderm) 5% patch 1 patch 1 patch, Transdermal, Administer over 12 Hours, DAILY, First dose on Sat02/18/24 at 1445, Until Discontinued, Apply patch(es) for 12 hours, and then remove for 12 hours., Routine Patch Applied 02/23/2024 9:08 AM EDT 1 patch 11- Chest (Left) Patch Applied 02/22/2024 8:22 AM EDT 1 patch 11- Chest (Left) Patch Applied 02/21/2024 8:43 AM EDT 1 patch 05- Back Upper (Left) metoclopramide (Reglan) (5 mg/mL) injection 10 mg 10 mg, Intravenous, ONCE, 1 dose, On Sat02/21/24 at 1015, Doses greater than 10mg should be diluted into 50ml NS. Given 02/21/2024 9:37 AM EDT 10 mg metoclopramide (Reglan) (5 mg/mL) injection 10 mg 10 mg, Intravenous, EVERY 6 HOURS PRN, Starting on Sat02/21/24 at 1500, Until Sat02/24/24 at 1323, Nausea, Doses greater than 10mg should be diluted into 50ml NS. Given 02/22/2024 9:01 PM EDT 10 mg Given 02/22/2024 2:09 PM EDT 10 mg Given 02/22/2024 8:17 AM EDT 10 mg metoprolol tartrate (Lopressor) tablet 100 mg 100 mg, Oral, EVERY 12 HOURS SCHEDULED (2 times per day), First dose (after last modification) on Sat02/23/24 at 0945, Until Discontinued, Hold for HR<60 and or SBP<90, Routine Given 02/24/2024 8:35 AM EDT 100 mg Given 02/23/2024 9:15 PM EDT 100 mg Given 02/23/2024 9:11 AM EDT 100 mg metoproloL tartrate (Lopressor) tablet 25 mg 25 mg, Oral, EVERY 12 HOURS SCHEDULED (2 times per day), First dose on Sat02/18/24 at 0915, Until Discontinued, Hold for HR<60 and or SBP<90, Routine Given 02/21/2024 8:40 AM EDT 25 mg Given 02/20/2024 8:11 PM EDT 25 mg Given 02/20/2024 9:14 AM EDT 25 mg metoproloL tartrate (Lopressor) tablet 25 mg 25 mg, Oral, EVERY 8 HOURS SCHEDULED, First dose (after last modification) on Sat02/21/24 at 1400, Until Discontinued, Hold for HR<60 and or SBP<90, Routine Given 02/22/2024 6:25 AM EDT 25 mg Given 02/21/2024 9:19 PM EDT 25 mg Given 02/21/2024 2:22 PM EDT 25 mg metoproloL tartrate (Lopressor) tablet 25 mg 25 mg, Oral, ONCE, 1 dose, On Sat02/22/24 at 1000, Routine Given 02/22/2024 10:02 AM EDT 25 mg metoprolol tartrate (Lopressor) tablet 50 mg 50 mg, Oral, EVERY 12 HOURS SCHEDULED (2 times per day), First dose (after last modification) on Sat02/22/24 at 2100, Until Discontinued, Hold for HR<60 and or SBP<90, Routine Given 02/22/2024 8:57 PM EDT 50 mg niCARdipine (Cardene) (0.2 mg/mL) in sodium chloride 200 mL infusion 0-15 mg/hr (0-75 mL/hr), Intravenous, CONTINUOUS, Starting on Sat02/17/24 at 1530, Until Sat02/18/24 at 0835, Titrate to map 65-75 Start at 5 mg/hr. Increase/decrease by 2.5 mg/hr every 5 minutes until goal reached. Do not exceed 15 mg/hr. Rotate IV site every 12 hours., Routine Rate/Dose Change 02/18/2024 6:00 AM EDT 0 mg/hr 0 mL/hr Rate/Dose Change 02/18/2024 5:50 AM EDT 7.5 mg/hr 37.5 mL /hr Rate/Dose Change 02/18/2024 5:45 AM EDT 12.5 mg/hr 62.5 mL /hr NORepinephrine (Levophed) (16 mcg/mL) in dextrose 5% 250 mL infusion 0-30 mcg/min (0-112.5 mL/hr), Intravenous, CONTINUOUS, Starting on Sat02/17/24 at 1400, Until Sat02/18/24 at 0835, Begin if PHENYLephrine and/or vasopressin ineffective. Call pager # [phone] if initiated. Titrate to keep systolic blood pressure greater than 90 mmHg. Start at 2 mcg/min. Increase/decrease by 2 mcg/min every 3 minutes until goal reached. Do not exceed 30 mcg/min. Warning Vesicant/Irritant Medication, Routine Rate/Dose Change 02/17/2024 4:30 PM EDT 2 mcg/min 7.5 mL/hr ondansetron (pf) (Zofran) (2 mg/mL) injection 4 mg 4 mg, Intravenous, EVERY 8 HOURS PRN, Starting on Sat02/17/24 at 1307, Until Sat02/17/24 at 1957, Nausea Given 02/17/2024 6:52 PM EDT 4 mg ondansetron (pf) (Zofran) (2 mg/mL) injection 4 mg 4 mg, Intravenous, EVERY 6 HOURS PRN, Starting on Starla 02/20/24 at 1120, Until Starla 02/20/24 at 1355, Nausea, second agent if nausea persists after phenergan Given 02/20/2024 11:47 AM EDT 4 mg ondansetron (pf) (Zofran) (2 mg/mL) injection 8 mg 8 mg, Intravenous, EVERY 8 HOURS PRN, Starting on Sat02/17/24 at 1957, Until Sat02/18/24 at 1442, Nausea Given 02/18/2024 12:13 PM EDT 8 mg Given 02/18/2024 3:59 AM EDT 8 mg Given 02/17/2024 8:08 PM EDT 8 mg oxyCODONE (Roxicodone) tablet 5-10 mg 5-10 mg, Oral, EVERY 4 HOURS PRN, Starting on Sat02/17/24 at 1307, Until Sat02/18/24 at 1440, Pain, - When tolerating oral medications. - Initial dose 5 mg. - If pain control not adequate in 60 minutes, give additional 5 mg., Routine Given 02/18/2024 12:17 AM EDT 5 mg pantoprazole (Protonix) injection 40 mg 40 mg, Intravenous, DAILY, First dose on Sat02/17/24 at 1400, Until Discontinued, Reconstitute with 10 mL of normal saline to a concentration of 4 mg/mL and inject slowly over 2 minutes. Reconstitute with 10 mL of normal saline to a concentration of 4 mg/mL and inject slowly over 2 minutes., Routine Given 02/17/2024 1:48 PM EDT 4 0 mg pantoprazole EC (Protonix) tablet 40 mg 40 mg, Oral, DAILY, First dose on Sat02/17/24 at 1400, Until Discontinued, DO NOT CRUSH OR OPEN If unable to take PO, may give IV, Routine Given 02/24/2024 8:35 AM EDT 40 mg Given 02/23/2024 9:07 AM EDT 40 mg Given 02/22/2024 8:21 AM EDT 40 mg potassium chloride 10 mEq in sterile water 100 mL infusion 10 mEq, Intravenous, EVERY 2 HOURS, 2 doses, First dose on Sat02/22/24 at 0730, Last dose on Sat02/22/24 at 0930, Administer over 60 Minutes, Doses of 20 mEq or greater require a Central Line Warning Vesicant/Irritant Medication New Bag 02/22/2024 10:01 AM EDT 10 mEq 50 mL/hr New Bag 02/22/2024 8:22 AM EDT 10 mEq 100 mL/hr promethazine (Phenergan) tablet 12.5 mg 12.5 mg, Oral, ONCE, 1 dose, On Sat02/17/24 at 2245, STAT Given 02/17/2024 10:27 PM EDT 12.5 mg promethazine (Phenergan) tablet 12.5 mg 12.5 mg, Oral, ONCE, 1 dose, On Sat02/18/24 at 0600, Routine Given 02/18/2024 5:57 AM EDT 12.5 mg promethazine (Phenergan) tablet 25 mg 25 mg, Oral, EVERY 6 HOURS PRN, Starting on Sat02/18/24 at 1442, Until Sat02/21/24 at 0915, Nausea, Routine Given 02/21/2024 6:22 AM EDT 25 mg Given 02/21/2024 12:21 AM EDT 25 mg Given 02/20/2024 6:05 PM EDT 25 mg propofoL (Diprivan) (10 mg/mL) infusion 0-50 mcg/kg/min ? 66.5 kg (0-19.95 mL/hr, rounded to 0-20 mL/hr), Intravenous, CONTINUOUS, Starting on Sat02/17/24 at 1400, Until Sat02/18/24 at 0835, Titrate to sedation level of RASS Goal (-1). Start at 10 mcg/kg/min. Increase/decrease by 5 mcg/kg/min every 3 minutes until goal reached. Once stable, reassess patient every 30 minutes. Do not exceed 50 mcg/kg/minute. Discontinue upon extubation. ., Routine Rate/Dose Verify 02/17/2024 2:00 PM EDT 40 mcg/kg/min 16 mL/hr Continued Bag 02/17/2024 1:50 PM EDT 40 mcg/kg/min 16 mL/h r senna-docusate (Pericolace) 8.6-50 mg per tablet 2 tablet 2 tablet, Oral, DAILY, First dose on Sat02/18/24 at 2100, Until Discontinued, Post-op day 1, Routine Given 02/20/2024 9:00 PM EDT 2 tablets Given 02/19/2024 9:00 PM EDT 2 tablets Given 02/18/2024 9:00 PM EDT 2 tablets sodium chloride 0.9 % (flush) (BD PosiFlush Normal Saline 0.9) flush 5 mL 5 mL, Intravenous, EVERY 8 HOURS, First dose on Sat02/18/24 at 0930, Until Discontinued, Routine Given 02/23/2024 11:25 PM EDT 5 mLs Given 02/23/2024 5:01 PM EDT 5 mLs Given 02/23/2024 9:08 AM EDT 5 mLs sodium chloride 0.9% infusion 0-500 mL/hr, Intravenous, CONTINUOUS, Starting on Sat02/17/24 at 1400, Until Sat02/18/24 at 0835, Bolus 250 mL every 5 minutes as needed for volume replacement to maintain cardiac index greater than or equal to 2.0 L/min/M2. Maximum volume 2 L. Call dye house helper for additional fluid orders: pager #[phone]. Rate/Dose Verify 02/18/2024 8:00 AM EDT 1 mL/hr 1 mL/hr Rate/Dose Verify 02/18/2024 6:00 AM EDT 1 mL/hr 1 mL/hr Rate/Dose Verify 02/18/2024 4:00 AM EDT 1 mL/hr 1 mL/hr sodium chloride 0.9% infusion 10-30 mL/hr, Intravenous, DAILY PRN, Starting on Sat02/17/24 at 1307, Until Sat02/18/24 at 0835, Side port TKO rate, per [facility] nursing protocol. Rate/Dose Verify 02/17/2024 8:00 PM EDT 30 mL/hr 30 mL/hr Rate/Dose Verify 02/17/2024 6:00 PM EDT 30 mL/hr 30 mL/h r Rate/Dose Verify 02/17/2024 5:00 PM EDT 30 mL/hr 30 mL/h r sodium chloride 0.9% infusion 10-30 mL/hr, Intravenous, DAILY PRN, Starting on Sat02/17/24 at 1307, Until Sat02/18/24 at 0835, Side port TKO rate, per [facility] nrusing protocol. Rate/Dose Verify 02/18/2024 8:00 AM EDT 30 mL/hr 30 mL/hr Rate/Dose Verify 02/18/2024 6:00 AM EDT 30 mL/hr 30 mL/h r Rate/Dose Verify 02/18/2024 4:00 AM EDT 30 mL/hr 30 mL/h r tamsulosin (Flomax) capsule 0.4 mg 0.4 mg, Oral, DAILY, First dose on Sat02/18/24 at 0930, Until Discontinued, DO NOT CRUSH OR CHEW, Routine Given 02/24/2024 8:36 AM EDT 0.4 mg Given 02/23/2024 9:07 AM EDT 0.4 mg Given 02/22/2024 8:21 AM EDT 0.4 mg timoloL (Timoptic) 0.5 % ophthalmic solution 1 drop 1 drop, Both Eyes, DAILY, First dose on Sat02/18/24 at 0930, Until Discontinued, Routine Given 02/24/2024 8:39 AM EDT 1 drop Given 02/23/2024 9:08 AM EDT 1 drop Given 02/22/2024 8:23 AM EDT 1 drop documented in this encounter Active and Recently Administered Medications Times are shown in EDT. Scheduled Medication Order 02/22/2024 02/23/2024 02/24/2024 acetaminophen (Tylenol) tablet 975 mg(Linked Group 1) 975 mg, Oral, EVERY 6 HOURS SCHEDULED, First dose on Sat02/18/24 at 1200, Until Discontinued, For pain when taking by mouth. Maximum dose of acetaminophen is 4,000 mg from all sources in 24 hours. When ordered for pain, acetaminophen should be given even when other ordered pain medications are indicated., Routine 0021 (Given - Provider: Polo Britton RN)0625 (Given - Provider: Polo Britton RN)1215 (Given - Provider: Reilly Vincent RN)1708 (Given - Provider: Ingrid Menjivar RN) 0000 (Not Given - Provider: Polo Britton RN - Reason: Patient/family refused)0604 (Given - Provider: Polo Britton RN)1210 (Given - Provider: Mishel Merrill RN)1701 (Given - Provider: Mishel Merrill RN)2324 (Given - Provider: Otis Crook RN) 0430 (Given - Provider: Otis Crook RN) apixaban (Eliquis) tablet 5 mg 5 mg, Oral, 2 TIMES DAILY, First dose on Sat02/21/24 at 1015, Until Discontinued, Anticoagulant, Routine, apixaban (Eliquis) Indication: Non-Valvular Atrial Fibrillation 0821 (Given - Provider: Reilly Vincent RN)2056 (Given - Provider: Polo Britton RN) 0907 (Given - Provider: Mishel Merrill, COLBY)2115 (Given - Provider: Otis Crook RN) 0836 (Given - Provider: Jazlyn Maldonado RN) aspirin chewable tablet 81 mg 81 mg, Oral, DAILY, First dose on Sat02/23/24 at 0945, Until Discontinued, Routine 0910 (Given - Provider: Mishel Merrill RN) 0835 (Given - Provider: Jazlyn Maldonado, COLBY) aspirin EC tablet 325 mg (CANCELED) 325 mg, Oral, DAILY, First dose on Sat02/18/24 at 0915, Until Discontinued, Routine 0821 (Given - Provider: Reilly Vincent RN) atorvastatin (Lipitor) tablet 10 mg 10 mg, Oral, DAILY, First dose on Sat02/17/24 at 1400, Until Discontinued, Routine 0821 (Given - Provider: Reilly Vincent RN) 0907 (Given - Provider: Mishel Merrill, COLBY) 0836 (Given - Provider: Jazlyn Maldonado, COLBY) brimonidine (Alphagan) 0.2 % ophthalmic solution 1 drop 1 drop, Both Eyes, 2 TIMES DAILY, First dose on Sat02/18/24 at 0930, Until Discontinued, Routine 0824 (Given - Provider: Reilly Vincent RN)2056 (Given - Provider: Polo Britton, COLBY) 09 (Given - Provider: Mishel Merrill, COLBY)2116 (Given - Provider: Otis Crook, COLBY) 0843 (Given - Provider: Jazlyn Maldonado, COLBY) dorzolamide (Trusopt) 2 % ophthalmic solution 1 drop 1 drop, Both Eyes, 3 TIMES DAILY, First dose on Sat02/18/24 at 0930, Until Discontinued, Routine 0824 (Given - Provider: Reilly Vincent RN)1408 (Given - Provider: Ingrid Menjivar RN)2056 (Given - Provider: Polo Britton, COLBY) 09 (Given - Provider: Mishel Merrill, COLBY)1500 (Given - Provider: Mishel Merrill, COLBY)2117 (Given - Provider: Otis Crook, COLBY) 0836 (Given - Provider: Jazlyn Maldonado, COLBY) lidocaine (Lidoderm) 5% patch 1 patch 1 patch, Transdermal, Administer over 12 Hours, DAILY, First dose on Sat02/18/24 at 1445, Until Discontinued, Apply patch(es) for 12 hours, and then remove for 12 hours., Routine 08 (Patch Applied - Provider: Reilly Vincent RN)2021 (Patch Removed - Provider: Polo Britton RN) 09 (Patch Applied - Provider: Mishel Merrill RN)2107 (Patch Removed - Provider: Otis Crook, COLBY) 0836 (Not Given - Provider: Jazlyn Maldonado RN - Reason: Patient/family refused) metoprolol tartrate (Lopressor) tablet 100 mg 100 mg, Oral, EVERY 12 HOURS SCHEDULED (2 times per day), First dose (after last modification) on Sat02/23/24 at 0945, Until Discontinued, Hold for HR<60 and or SBP<90, Routine 09 (Given - Provider: Mishel Merrill, RN)2114 (Given - Provider: Otis Crook RN) 0835 (Given - Provider: Jazlyn Maldonado, COLBY) metoproloL tartrate (Lopressor) tablet 25 mg (CANCELED) 25 mg, Oral, EVERY 8 HOURS SCHEDULED, First dose (after last modification) on Sat02/21/24 at 1400, Until Discontinued, Hold for HR<60 and or SBP<90, Routine 06 (Given - Provider: Polo Britton RN) metoproloL tartrate (Lopressor) tablet 25 mg (COMPLETED) 25 mg, Oral, ONCE, 1 dose, On 02/22/24 at 1000, Routine 1002 (Given - Provider: Ingrid Menjivar RN) metoprolol tartrate (Lopressor) tablet 50 mg (CANCELED) 50 mg, Oral, EVERY 12 HOURS SCHEDULED (2 times per day), First dose (after last modification) on 02/22/24 at 2100, Until Discontinued, Hold for HR<60 and or SBP<90, Routine 2056 (Given - Provider: Polo Britton RN) pantoprazole EC (Protonix) tablet 40 mg(Linked Group 2) 40 mg, Oral, DAILY, First dose on Sat02/17/24 at 1400, Until Discontinued, DO NOT CRUSH OR OPEN If unable to take PO, may give IV, Routine 08 (Given - Provider: Reilly Vincent RN) 906 (Given - Provider: Mishel Merrill, COLBY) 0835 (Given - Provider: Jazlyn Maldonado, COBLY) potassium chloride 10 mEq in sterile water 100 mL infusion (COMPLETED) 10 mEq, Intravenous, EVERY 2 HOURS, 2 doses, First dose on 02/22/24 at 0730, Last dose on 02/22/24 at 0930, Administer over 60 Minutes, Doses of 20 mEq or greater require a Central Line Warning Vesicant/Irritant Medication 0822 (New Bag - Provider: Reilly Vincent RN)1000 (Stopped - Provider: Ingrid Menjivar RN)1001 (New Bag - Provider: Ingrid Menjivar RN)1201 (Stopped - Provider: Reilly Vincent RN) senna-docusate (Pericolace) 8.6-50 mg per tablet 2 tablet 2 tablet, Oral, DAILY, First dose on Sat02/18/24 at 2100, Until Discontinued, Post-op day 1, Routine 2055 (Not Given - Provider: Polo Britton RN - Reason: Patient/family refused) 2100 (Not Given - Provider: Otis Crook RN - Reason: Patient/family refused) sodium chloride 0.9 % (flush) (BD PosiFlush Normal Saline 0.9) flush 5 mL 5 mL, Intravenous, EVERY 8 HOURS, First dose on Sat02/18/24 at 0930, Until Discontinued, Routine 0130 (Given - Provider: Polo Britton RN)0930 (Given - Provider: Reilly Vincent RN)1708 (Given - Provider: Ingrid Menjivar RN) 0130 (Given - Provider: Polo Britton RN)0908 (Given - Provider: Mishel Merrill, COLBY)1701 (Given - Provider: Mishel Merrill, COLBY)2325 (Given - Provider: Otis Crook RN) 0930 (Not Given - Provider: Jazlyn Maldonado RN - Reason: Patient/family refused - Comment: d/c today) tamsulosin (Flomax) capsule 0.4 mg 0.4 mg, Oral, DAILY, First dose on Sat02/18/24 at 0930, Until Discontinued, DO NOT CRUSH OR CHEW, Routine 0821 (Given - Provider: Reilly Vincent RN) 0907 (Given - Provider: Mishel Merrill, COLBY) 0836 (Given - Provider: Jazlyn Maldonado, COLBY) timoloL (Timoptic) 0.5 % ophthalmic solution 1 drop 1 drop, Both Eyes, DAILY, First dose on Sat02/18/24 at 0930, Until Discontinued, Routine 0823 (Given - Provider: Reilly Vincent RN) 0908 (Given - Provider: Mishel Merrill, RN) 0839 (Given - Provider: Jazlyn Maldonado, RN) Continuous Medication Order 02/22/2024 02/23/2024 02/24/2024 dextrose 5% and sodium chloride 0.45% infusion (CANCELED) 50 mL/hr, Intravenous, CONTINUOUS, Starting on Sat02/21/24 at 1015, Until Sat02/23/24 at 0847 0128 (New Bag - Provider: Polo Britton RN)1830 (New Bag - Provider: Reilly Vincent, COLBY) 0900 (Stopped - Provider: Mishel Merrill, RN) PRN Medication Order 02/22/2024 02/23/2024 02/24/2024 bisacodyL (Dulcolax) suppository 10 mg 10 mg, Rectal, DAILY PRN, Starting on Starla 02/20/24 at 0000, Until Sat02/24/24 at 1323, Constipation, Starting post-op day 3., Routine HYDROmorphone (Dilaudid) tablet 2-6 mg 2-6 mg, Oral, EVERY 4 HOURS PRN, Starting on Sat02/18/24 at 1440, Until Sat02/24/24 at 1323, Pain, Give 2 mg 1 tab PO Q 4 hours PRN for pain >/= 3-5/10. Give 2 mg 2 tabs PO Q 4 hours PRN for pain >/= 6-8/10. Give 2 mg 3 tabs PO Q 4 hours PRN for pain >/= 9-10/10. Call provider for new pain management orders if pain not relieved after an appropriate amount of time or if regimen is not tolerated. Hold if patient appears over sedated. , Routine magnesium hydroxide (Milk of Magnesia) (80mg/mL) oral liquid 2,400 mg 2,400 mg, Oral, DAILY PRN, Starting on Sat02/17/24 at 1307, Until Sat02/24/24 at 1323, Constipation, 30 mL regular (400 mg/5 mL) = 10 mL concentrate (2400 mg/10 mL), Routine metoclopramide (Reglan) (5 mg/mL) injection 10 mg 10 mg, Intravenous, EVERY 6 HOURS PRN, Starting on Sat02/21/24 at 1500, Until Sat02/24/24 at 1323, Nausea, Doses greater than 10mg should be diluted into 50ml NS. 0121 (Given - Provider: Polo Britton, COLBY)0817 (Given - Provider: Reilly Vincent, COLBY)1409 (Given - Provider: Ingrid Menjivar, COLBY)2101 (Given - Provider: Polo rBitton RN) Linked Groups Order Group 1: acetaminophen (Ofirmev) (1,000 mg/100 mL) infusion 1,000 mg (COMPLETED) 1,000 mg, Intravenous, at 400 mL/hr, Administer over 15 Minutes, EVERY 6 HOURS SCHEDULED, 4 doses, First dose on Sat02/17/24 at 1400, Last dose on Sat02/18/24 at 0600, Maximum dose of acetaminophen is 4,000 mg from all sources in 24 hours. When ordered for pain, acetaminophen should be given even when other ordered pain medications are indicated., Routine, Is ketorolac (Toradol) IV contraindicated? Yes, Can this patient tolerate oral medications or suppositories? No Followed by acetaminophen (Tylenol) tablet 975 mgJump to med 975 mg, Oral, EVERY 6 HOURS SCHEDULED, First dose on Sat02/18/24 at 1200, Until Discontinued, For pain when taking by mouth. Maximum dose of acetaminophen is 4,000 mg from all sources in 24 hours. When ordered for pain, acetaminophen should be given even when other ordered pain medications are indicated., Routine Group 2: pantoprazole EC (Protonix) tablet 40 mgJump to med 40 mg, Oral, DAILY, First dose on Sat02/17/24 at 1400, Until Discontinued, DO NOT CRUSH OR OPEN If unable to take PO, may give IV, Routine Or pantoprazole (Protonix) injection 40 mg (CANCELED) 40 mg, Intravenous, DAILY, First dose on Sat02/17/24 at 1400, Until Discontinued, Reconstitute with 10 mL of normal saline to a concentration of 4 mg/mL and inject slowly over 2 minutes. Reconstitute with 10 mL of normal saline to a concentration of 4 mg/mL and inject slowly over 2 minutes., Routine documented in this encounter Care Teams Oil Sprayer Relationship Specialty Start Date End Date Aparna Jordan APRN PCP - General Family Medicine 10/21/23 documented as of this encounter
--- OUTSIDE RECORDS SUMMARY | 2024-05-06 08:36 | XMS_ITS | Encounter Summary ---
Author Organization [facility] Address [facility] Ivana linareseileen [place] [id number] Care Team Providers Care Industrial Organization Manager Name Role Phone Vanessa Christian MAURI Primary Care Provider [phone] Reason for Referral * Consultation (Routine) - Closed Specialty Diagnoses / Procedures Referred By Contac t Referred To Contact Cardiac Surgery Diagnoses Nonrheumatic aortic valve stenosis significant - TAVR ( defers to Card Surg d/t age) Errol Loya MD [facility] [place] [address] Zak Farmer MD [facility] [place] [address] Referral ID Status Reason Start Date Expiration Date V isits Requested Visits Authorized [id number] Closed Consult, Test & Treat 10/21/2023 10/20/2024 1 1 Reason for Visit * Reason Comments Chest Pain Shortness of Breath Aortic Stenosis Encounter Details Date Type Department Care Team (Late st Contact Info) Description 10/21/2023 1:20 PM EST Office Visit Cardiology at [address] [id number] Errol Loya MD [facility] [place] [address] Nonrheumatic aortic valve stenosis Social History Tobacco Use Types Packs/Day Years Used Date Smoking Tobacco: Former Cigarettes Smokeless Tobacco: Never Tobacco Cessation:Counseling Given: Not Answered Comments:Quit 15 + years ago Sex and Gender Information Value Date Recorded Sex Assigned at Not on file Gender Identity Not on file Sexual Orientation Not on file documented as of this encounter Last Filed Vital Signs Vital Sign Reading Time Taken Comments Blood Pressure 157/88 10/21/2023 3:22 PM EST Pulse 66 10/21/2023 3:22 PM EST per e cg Temperature - - Respiratory Rate - - Oxygen Saturation - - Inhaled Oxygen Concentration - - Weight 65.8 kg (145 lb) 10/21/2023 3:22 PM EST Height 167.6 cm (5' 6) 10/21/2023 3:22 PM EST Body Mass Index 23.4 10/21/2023 3:22 PM EST documented in this encounter Progress Notes * Errol Loya MD - 10/21/2023 1:20 PM EST Images from the original note were not included. CARDIOLOGY NEW OUTPATIENT PRIMARY CARE PROVIDER: Vanessa Christian APRN PROBLEM LIST: Patient Active Problem List Diagnosis Aortic stenosis 12/2022 TTE ([facility]): VITA 0.8-0.9 cm2 (MG 28 mmHg, DOI 3.6 m/s, SVI 35 cc/m2). Trace regurgitation. Normal bi-v s/f, no other valve findings Gastroesophageal reflux Nevus of face Right spiritism Hypertension HLD (hyperlipidemia) MEDICATIONS: Current Outpatient Medications Medication Instructions aspirin EC 81 mg, Oral, DAILY atorvastatin (LIPITOR) 10 mg, Oral, DAILY brimonidine (Alphagan) 0.2 % Drops 1 drop, Both Eyes, 2 TIMES DAILY lisinopriL (ZESTRIL) 5 mg, Oral, DAILY multivitamin (THERAGRAN) Tablet 1 tablet, Oral, DAILY tamsulosin (FLOMAX) 0.4 mg, Oral, DAILY timoloL (Timoptic) 0.5 % Drops 1 drop, Both Eyes, DAILY Subjective: Patient ID: Karlos Anthony is a 63 y.o. male. HPI: 63 m presents on referral from gp for aortic stenosis. He had an echocardiogram in 12/2022 as above for dyspnea. He states no one has chatted with him regarding the results since recently. Over the past few months, he has noted a progressive nyha ii-iii dyspnea as well as ccs ii angina, both of which dissipate in tandem during early rest. Has may also experience an exertional lightheadedness Objective: Patient Vitals for the past 24 hrs: Pulse BP 10/21/23 1522 66 157/88 Gen: pleasant male in NAD Cor: rrr, s1/s2 of nl character and amplitude, II/ mid-late peaking high pitched ALEISHA at base, no rg Estimated RAP not elevated. Carotids without bruit. Pulm: CTAB. Normal diaphragmatic movement without use of accessory muscles EKG: nsr, nl ekg TTE: reviewed, as per problem list Assessment and Plan: Aortic stenosis Based on patient's history, it seems like he indeed has severe . However, his demographics, rapidity of worsening (had TTE in 2019 which demonstrated but mild disease) are contrary to this. Will review images personally, but in the meantime will refer to [facility] at [facility] [place] further [place]. Logistics and preliminary review of TONY were reviewed with patient. - Refer to T RTC pending TONY evaluation (or review of echocardiogram) Errol Loya MD Between 60-74 minutes were spent doing patient care, chart care/review (today), and care coordination. documented in this encounter Miscellaneous Notes * Assessment & Plan Note - Errol Loya MD - 10/21/2023 3:47 PM EST Associated Problem(s): Aortic stenosis Based on patient's history, it seems like he indeed has severe . However, his demographics, rapidity of worsening (had TTE in 2019 which demonstrated but mild disease) are contrary to this. Will review images personally, but in the meantime will refer to [facility] at [facility] [place] further evaluation. Logistics and preliminary review of TONY were reviewed with patient. - Refer to SHT * Addendum Note - Errol Loya MD - 10/21/2023 1:20 PM ESTAddended by: ERROL LOYA on: 10/21/2023 03:49 PM Modules accepted: Orders documented in this encounter Plan of Treatment Upcoming Encounters Date Type Department Care Team (Late st Contact Info) Description 05/27/2024 11:00 AM EDT Office Visit Cardiology at [address] [place] [address] Errol Loya MD [facility] [place] [address] Scheduled Referrals Name Type Priority Associated Diagnoses Order Schedule Amb Referral to Structural Heart Outpatient Referral Routine Nonrheumatic aortic valve stenosis Ordered: 10/21/2023 documented as of this encounter Visit Diagnoses Diagnosis Nonrheumatic aortic valve stenosis Aortic valve disorders documented in this encounter Care Teams Industrial Organization Manager Relationship Specialty Start Date End Date Vanessa Christian APRN PCP - General Family Medicine 10/21/23 documented as of this encounter
--- OUTSIDE RECORDS SUMMARY | 2024-05-06 08:36 | XMS_ITS | Encounter Summary ---
[place] [address] Care Team Providers Care Marble And Granite Polisher Name Role Phone Victor M Lalfeur MD Primary Care Provider [phone] Reason for Visit * Reason Onset Date Comments Referral 09/20/2023 Encounter Details Date Type Department Care Team (Late st Contact Info) Description 09/20/2023 Telephone Cardiology at [address] [phone] Karen Billy, senior enterprise architect Social History Tobacco Use Types Packs/Day Years Used Date Smoking Tobacco: Never Assessed Sex and Gender Information Value Date Recorded Sex Assigned at Not on file Gender Identity Not on file Sexual Orientation Not on file documented as of this encounter Miscellaneous Notes * Telephone Encounter - Karen Billy RN - 09/26/2023 9:32 AM EST Karlos was referred to cardiology. Severe aortic stenosis, hypertension, dyspnea with exertion are reasons for referral from PCP. .. Active Ambulatory Problems Diagnosis Date Noted Aortic stenosis 08/14/2023 Chest pressure 08/14/2023 SILVA (dyspnea on exertion) 08/14/2023 Hypertension 08/14/2023 HLD (hyperlipidemia) 08/14/2023 Gastroesophageal reflux 09/26/2023 Nevus of face 09/26/2023 Resolved Ambulatory Problems Diagnosis Date Noted No Resolved Ambulatory Problems No Additional Past Medical History * Telephone Encounter - Karen Billy RN - 09/20/2023 10:20 AM EST ----- Message from Dennise Snowden sent at 09/20/2023 10:15 AM EST ----- Cardiology referral and records scanned. documented in this encounter Plan of Treatment Upcoming Encounters Date Type Department Care Team (Late st Contact Info) Description 05/27/2024 11:00 AM EDT Office Visit Cardiology at [address] [place] [address] Neftali Ernandez MD [facility] [place] [address] documented as of this encounter Visit Diagnoses Not on filedocumented in this encounter Care Teams Marble And Granite Polisher Relationship Specialty Start Date End Date Victor M Lafleur MD PCP - General 10/02/13 10/20/23 documented as of this encounter
--- OUTSIDE RECORDS SUMMARY | 2024-05-06 08:36 | XMS_ITS | Encounter Summary ---
Author Organization formerly [facility] [place] [address] Care Team Providers Care Chief Executive Officer Name Role Phone Aparna Jordan MAURI Primary Care Provider [phone] Reason for Visit * Auth/Cert (Routine) Specialty Diagnoses / Procedures Referred By Contac t Referred To Contact Diagnoses CAD (coronary artery disease) CAD Procedures PRO ENDOSCOPY W/VIDEO-ASST VEIN HARVEST, CABG PRO CABG, ARTERIAL, SINGLE PRO CABG, ARTERY-VEIN, TWO ENDOSCOPIC HARVEST VEIN(S) FOR CABG (WRVU 0.31) @CABG, USING ARTERIAL GRAFT;SINGLE ARTERIAL GRAFT (WRVU 33.75) @CABG, TWO VENOUS GRAFTS & ARTERIAL GRAFT (WRVU 7.93) Hayder Graham MD [facility] [place] [address] [facility] Referral ID Status Reason Start Date Expiration Date Visits Re quested Visits Authorized [id number] 1 1 Encounter Details Date Type Department Care Team (Late st Contact Info) Description 02/17/2024 7:30 AM EDT - 02/17/2024 1:26 PM EDT Surgery [place] [id number] Hayder Graham MD [facility] [place] [address] ENDOSCOPIC HARVEST VEIN(S) FOR CABG (WRVU 0.31) Social History Tobacco Use Types Packs/Day Years Used Date Smoking Tobacco: Former Cigarettes Smokeless Tobacco: Never Comments:Quit 15 + years ago Alcohol Use Standard Drinks/Week Comments Yes 0 (1 standard drink = 0.6 oz pur e alcohol) rare [facility] Utilities Answer Date Recorded In the [...] place to sleep or slept in a jail (including now)? No 02/18/2024 DH IPV Inpatient [...] Sign Reading Time Taken Comments Blood Pressure 122/77 02/17/2024 6:45 AM EDT Pulse 80 02/17/2024 1:15 PM EDT Temperature 33.5 ??C (92.3 ??F) 02/17/2024 1:15 PM ED T Respiratory Rate 14 02/17/2024 1:15 PM EDT Oxygen Saturation 99% 02/17/2024 1:15 PM EDT Inhaled Oxygen Concentration - - Weight - - Height - - Body Mass Index - - documented in this encounter Discharge Summaries * Neftali Menon PA - 02/24/2024 8:59 AM EDT Inpatient - Discharge Summary Patient Name: Karlos Garcia Patient Age: 63 y.o. Birthdate: 1960 Language: Luxembourgish Race: White Ethnicity: Not nor Admit Date: 02/17/2024 Discharge Date: 02/24/24 Attending Physician: Hayder Graham MD Follow-up Recommendations for Providers: Please continue routine management of cardiovascular risk factors including blood pressure, lipids,glucose, etc. Please note any changes to medications. Patient to follow up with PCP, Aparna Jordan APRN, in 1-2 weeks. Patient to follow up with Main Line Station Engineer, Neftali Ernandez MD , in 2 weeks. Patient to follow up with Cardiac Surgeon, Dr. Hayder Graham, with a chest x-ray, EKG, and Echo. Inpatient Provider Contact Information: [facility] Section of Cardiac Surgery [facility] [address] FAX [phone] Discharge Diagnoses (Hospital Problems) Primary Diagnoses: /CAD [...] Hypertension 08/14/2023 Nevus of face 09/26/2023 Right religion Past Surgical History: Procedure Laterality Date PRO CABG, ARTERIAL, SINGLE N/A 02/17/2024 @CABG, USING ARTERIAL GRAFT;SINGLE ARTERIAL GRAFT (WRVU 33.75) performed by Hayder Graham MD at [facility] MAIN OR PRO CABG, ARTERY-VEIN, TWO N/A 02/17/2024 @CABG, TWO VENOUS GRAFTS & ARTERIAL GRAFT (WRVU 7.93) performed by Hayder Graham MD at [facility] MAIN OR PRO ENDOSCOPY W/VIDEO-ASST VEIN HARVEST, CABG Left 02/17/2024 ENDOSCOPIC HARVEST VEIN(S) FOR CABG (WRVU 0.31) performed by Hayder Graham MD at [facility] MAIN OR PRO REPLACEMENT PROSTHETIC AORTIC VALVE OPEN W CARDIOPULMONARY BYPASS HOMOGRF/STENT N/A 02/17/2024 @REPLACE AORTIC VALVE, OPEN, W\CPB, W\PROSTHETIC VALVE (WRVU 41.32) performed by Hayder Graham MD at [facility] MAIN OR Prior To Admission Medications Medications [...] insufficiency. He has glaucoma. He used to bac[employer] until about 15 years ago. He has undergone prior herniorrhaphy. 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 Major Procedures/Operations: 02/17/24 s/p avr/cabgx3 CABG x 3 JOSE->LAD SVG->dRCA SVG->OM1 EVH from LLE AVR with a 23 mm Inspiris Bioprosthesis Hospital Course: Karlos Garcia was admitted to [facility] on 02/17/2024 via the Same Day Program. He was brought to the operating room where Dr. Hayder Graham performed a tissue aortic valve replacement [...] therapy? Given Discharge anti-platelet therapy? Given Discharge SANJANA or ARB restarted? Not indicated Discharge Medications: [...] from your chest incision. Your surgeon, Dr. Hayder Graham and/or the Cardiac Surgery Physician Operations Technician Team may be reached at . [...] Please refer to the card with the [place] Heart Association Guidelines for more information. You [...] until after your return appointment with Dr. Hayder Graham. You may use a Cathay Track or treadmill but avoid any pulling [...] friends, go to a movie, go to christianity, etc. Heavy activities: No hunting, skiing, jogging, [...] should resume a low fat, low cholesterol, [place] Heart Association Diet. Driving: No driving until [...] there is a lot of swelling, apply sanjana wraps during the day and remove at bedtime. Elevate your legs when you are sitting. MEDICATION REFILL REQUESTS - Please note that Cardiac Surgery will not maintain regular refill requests for your medications as these can change during and after your recovery while being managed by your PCP and/or Main Line Station Engineer. For future medication refills, please refer to your PCP and/or Main Line Station Engineer after your discharge from our service. Thank you REMOVE CHEST TUBE SUTURES ON OR AFTER 03/02/24 Home oxygen therapy: N/A Follow up appointments: You should follow up with your PCP, Aparna Jordan APRN, in 1-2 weeks. Our office will schedule an appointment with your Main Line Station Engineer, Neftali Ernandez MD , in 2 weeks. You have an appointment with your Cardiac Surgeon, Dr. Hayedr Graham, 4 weeks with a chest x-ray, EKG, and Echo before your appointment. Cardiac Rehabilitation: Karlos Garcia was seen regarding participation in the outpatient Phase 2Cardiac Rehabilitation at [facility]. The patient agrees to a referral to this program. The referral will be sent at discharge and the patient should be contacted by the Program within 1- 2 weeks from discharge. Future Appointments and Orders Future Orders Complete By Expires Echocardiogram Transthoracic [32060 CPT(R)] 03/26/2024 09/25/2024 Process Instructions: Scheduling Instructions: Questions: Where will study be performed?: [facility] Does the patient have Congenital Heart Disease?: Does patient require sedation?: Sedation rationale: XR Chest PA & Lateral (Generic) [[id number] Custom] 03/26/2024 09/25/2024 Process Instructions: Scheduling Instructions: Questions: Portable exam?: Reason for exam and clinical history: s/p avr/cabg Clinical information / jerome questions for radiologist: Stat read required?: Date of injury if applicable: Requested Time: Where will study be performed?: [facility] Radiology Referral to Cardiac Rehab [[id number] Custom] As directed Process Instructions: If no progress note charted, please enter Clinical details in comments. Scheduling Instructions: Questions: My question or request is: s/p AVR/CABG. Cardiac rehab at [facility]. Referral to Home Health [REF34 Custom] As directed Process Instructions: If no progress note charted, please enter Clinical details in comments. Scheduling Instructions: Comments: Please evaluate Karlos Garcia for admission to Home Health. 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 [address] [place] [id number] RN orders: Cardiopulmonary assessment, incisional assessment, assess [...] issues please call the Cardiology Office at [phone] FOR MEDICARE ONLY: (please delete this section [...] Aparna Reed APRN [address] / [place] [address] . All VNA agencies which cover the area of patient's residence have been reviewed, either verbally or in writing, and patient/family have chosen the home health care agency noted. Questions: Disciplines Requested: Nursing Physical Therapy Arrangements for VNA/home care: As above. Signed: NEFTALI MENON PA-C [facility] Section of Cardiac Surgery [facility] [address] FAX [phone] Date: 02/24/2024 CC: Aparna Jordan, MAURI Jordan, Aparna Sherman APRN [address] [place] [address] documented in this encounter Discharge Instructions * [...] from your chest incision. Your surgeon, Dr. Hayder Graham and/or the Cardiac Surgery Physician Operations Technician Team may be reached at . [...] Please refer to the card with the [place] Heart Association Guidelines for more information. You [...] until after your return appointment with Dr. Hayder Graham. You may use a Cathay Track or treadmill but avoid any pulling [...] friends, go to a movie, go to christianity, etc. Heavy activities: No hunting, skiing, jogging, [...] should resume a low fat, low cholesterol, [place] Heart Association Diet. Driving: No driving until [...] there is a lot of swelling, apply sanjana wraps during the day and remove at bedtime. Elevate your legs when you are sitting. MEDICATION REFILL REQUESTS - Please note that Cardiac Surgery will not maintain regular refill requests for your medications as these can change during and after your recovery while being managed by your PCP and/or Main Line Station Engineer. For future medication refills, please refer to your PCP and/or Main Line Station Engineer after your discharge from our service. Thank you REMOVE CHEST TUBE SUTURES ON OR AFTER 03/02/24 Home oxygen therapy: N/A Follow up appointments: You should follow up with your PCP, Aparna Jordan APRN, in 1-2 weeks. Our office will schedule an appointment with your Main Line Station Engineer, Neftali Ernandez MD , in 2 weeks. You have an appointment with your Cardiac Surgeon, Dr. Hayder Graham, 4 weeks with a chest x-ray, EKG, and Echo before your appointment. Cardiac Rehabilitation: Karlos Garcia was seen regarding participation in the outpatient Phase 2Cardiac Rehabilitation at [facility]. The patient agrees to a referral to [...] 8:56 AM EDT Cardiac Surgery Progress Note Karlos Garcia is a 63 y.o. male with [...] 0600 and on the weekends please page [phone]. * Eric Barahona PA - 02/23/2024 9:27 AM EDT Cardiac Surgery Progress Note Karlos Garcia is a 63 y.o. male with [...] 0600 and on the weekends please page [phone]. * Tiffanie Owens - 02/22/2024 2:48 PM EDT Physical Therapy Note 3 Patient profile: Karlos Garcia is a 63 y.o. male with [...] Pt reports his dtr is coming from [place] to stay upon d/c for 10 days. 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 male with [...] 0600 and on the weekends please page [phone]. * Kelley Hinson PTA - 02/21/2024 10:15 AM EDT Physical Therapy Note 2 Patient profile: Karlos Garcia is a 63 y.o. male with [...] Pt reports his dtr is coming from [place] to stay upon d/c for 10 days. 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 Assessment: Karlos Garcia was seen today for physical therapy [...] LRAD and supervision Time IN / OUT: 0769-1849 Total Time: 25 minutes; TEF 2 Kelley Hinson PTA Pager: [phone] Physical Therapy Inpatient Rehabilitation Department * Louisa Cho PA - 02/21/2024 7:59 AM EDT Cardiac Surgery Progress Note Karlos Garcia is a 63 y.o. male with [...] 0600 and on the weekends please page [phone]. * Kelley Hinson PTA - 02/20/2024 3:32 PM EDT 02/20/24 [id number] Evaluation & Treatment Document Type contact Total Minutes, Physical Therapy 0 Comment, Session Not Performed Checked in w/ pt this PM for ongoing PT services, pt politely declined, stating he had been dealing w/ nausea all day, made plan to see him tomorrow morning, will f/u at that time Kelley Hinson PTA Pager: [phone] Physical Therapy Inpatient Rehab Department * Louisa Cho PA - 02/20/2024 9:15 AM EDT Cardiac Surgery Progress Note Karlos Garcia is a 63 y.o. male with [...] 0600 and on the weekends please page [phone]. * Maris Benavides, PT - 02/19/2024 11:22 AM EDT Physical Therapy Evaluation Patient profile: Karlos Garcia is a 63 y.o. male with and CAD who is 2 Days Post-Op AVR/CABGx3. PMH of , CAD, HTN, HLD, former smoker. 24h Events: Transferred AF w/ RVR ~1200 Amio bolus/gtt Resumed SR ~0400 Social History: Pt lives alone in a 1 level home with 3 stairs to enter. Pt reports his dtr is coming from [place] to stay upon d/c for 10 days. 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 Precautions/Special Considerations: STERNAL [...] pt's functional performance as outlined inthis evaluation. MARIS BENAVIDES, PT Pager: [phone] Physical Therapy Inpatient Rehabilitation Department Time IN / OUT: 0386-5284 Total Time: 38 (eval) minutes; * Antonio Allen PA - 02/19/2024 9:16 AM EDT Cardiac Surgery Progress Note Karlos Garcia is a 63 y.o. male with [...] dressing CDI. Saphenectomy site CDI Tubes/Lines/Drains: TPW, Naqvi Assessment/Plan: 63 y.o. male 2 Days Post-Op [...] eye drops BPH Home Flomax 0.4' Dc elaina Dispo: Floor Discussed with attending surgeon on rounds this morning. 02/19/2024 Between the hours of 1800 - 0600 and on the weekends please page [phone]. * Minnie Begum PA - 02/18/2024 8:25 AM EDT Cardiac Surgery Progress Note Karlos Garcia is a 63 y.o. male with [...] OR dressing CDI. Saphenectomy site CDI with SANJANA wrap Tubes/Lines/Drains: RIJ/PAC, Roark, Med Ctx, L pleural CT, TPW, Naqvi [...] 0600 and on the weekends please page [phone]. * Kim Ha RCP - 02/17/2024 2:25 PM EDT Respiratory Care [...] (Middle of the road) White. Assessment: Received Karlos orally intubated from OR patient placed on the above noted settings - Fi02 weaned to 40% Passed SBT + cuff leak - patient extubated to NC 4L Kim Ha RCP documented in this encounter H&P Notes * Hayder Graham MD - 02/17/2024 7:02 AM EDT There has been No change in the patients condition or operative plan since last visit. Hayder Graham MD [phone] Source Note - Hayder Graham MD - 02/17/2024 7:00 AM EDT Patient Name: Karlos Garcia Patient Age: 63 y.o. Birthdate: 1960 Admit date: 02/17/2024 Attending Physician: Hayder Graham MD Mr. Santa is a 63-year-old [...] proceed, and has given written informed consent. Hayder Graham MD [phone] * Hayder Graham MD - 02/17/2024 7:00 AM EDT Patient Name: Karlos Garcia Patient Age: 63 y.o. Birthdate: 1960 Admit date: 02/17/2024 Attending Physician: Hayder Graham MD Mr. Santa is a 63-year-old [...] insufficiency. He has glaucoma. He used to bac[employer] until about 15 years ago. He has [...] proceed, and has given written informed consent. Hayder Graham MD [phone] documented in this encounter Miscellaneous Notes * [...] information for follow-up Home Health & Hospice, [address] [place] [address] Cardiac Rehab, [facility] [address] [place] [address] [place] [address] Transportation: family or friend will provide Functional status prior to admission: Independent Home Environment: Others in the home: alone. Current Living Arrangements: home/apartment/condo. Accessibility Concerns:a few steps to enter 1 floor home. Current Functional Ability: Assistive Person and Equipment DME used at home: none DME Needed at Discharge: N/A Patient is insured through: Primary Insurance: [facility] Payor: [facility] / Plan: [facility] PPO / Product Type: *No Product type* / Secondary Insurance: N/A Prescription Coverage: Yes Per provider, pt MR to discharge to home with home health. This plan was formulated with input frompatient and team. All are in agreement with plan. Michelle Main RN Office of Care Management * Plan of [...] pain managed with scheduled Tylenol. Worked with [employer]. Ambulated in the roque multiple times during [...] anticipated Patient is insured through: Primary Insurance: [facility] Payor: [facility] / Plan: [facility] PPO / Product Type: *No Product type* / Secondary Insurance: N/A Last Physical Therapy Recommendation: home with home health (Str coming to stay for a week or two upon d/c) with to be determined (owns rolling walker, shower seat) Plan for discharge is: Home w/ Services Outpatient Agency/Support Group Needs: Homecare agency Home Health Services: Physical Therapy, Registered Nurse Agency Referrals: [facility]. [address] [place] [address] Transportation: family or friend will provide Barriers to discharge: Discharge planning Plan going forward: Service Care Management will continue to follow and assist with discharge planning and coordination of care as indicated. Anticipated Date of Discharge: 02/22/2024 Rhett Bell RN RN/CM - Cellphone: [phone] Pager: [phone] Covering Service RN/CM * Plan of Care [...] Yang RN - 02/19/2024 10:44 AM EDT [facility] CARDIAC REHABILITATION Karlos Garcia was seen today regarding participation in the outpatient Phase [address] [facility]. The patient agrees to a referral to [...] EDT Office of Care Management Initial Assessment Renia Greene RN reviewed record and discussed patient [...] Hypertension 08/14/2023 Nevus of face 09/26/2023 Right religion Hospitalizations Within the Past 30 Days: no previous admission in last 30 days Current Decision-Making Capacity: Self If AD's have not been completed the following surrogate would be surrogate decision maker per [place] surrogate decision making law. (Only good for 180 days) Any patient receiving care in [place] must abide by [place] law. The hierarchy for surrogate decision making [...] (i) The agent with financial power of research editor or a conservator appointed in accordance with [...] steady place to sleep or slept in ashelter (including now)?: No In the past 12 months has the [employer], gas, oil, or water [employer] threatened to shut off services in your [...] Home Address confirmed as: [address] [facility] [address] Physical address: [address] [facility], [address] Social & Family Supports: All names listed below confirmed with patient as current and correct Extended Emergency Contact Information Primary Emergency Contact: Cielo Garcia Relation: Child Secondary Emergency Contact: Sara Mcghee [...] Information: none noted Health/Prescription Coverage: Primary Insurance: [facility] Payor: [facility] / Plan: [facility] PPO / Product Type: *No Product type* / Secondary Insurance: N/A ; Prescription Coverage: Yes Preferred Pharmacy: [id number] [address] [place] Status: Patient is a : No Primary Care Provider confirmed: Aparna Jordan, TELEGRAPH INSTALLER [phone] Patient/Caregiver Goals of Treatment: dc to home Potential Needs for Transition of Care: home health care Agency Referrals: I have met with the patient to: discuss discharge planning needs. provide the [facility], Office of Care Management letter from the [employer] pertaining to rehab referrals. provide a letter describing our affiliations within the [facility] and educate about their right to choose where referrals are sent. provide a list of Home Health Agencies / Durable Medical Equipment vendors which serve their preferred geographic area. provided patient with [facility] Star Quality Rating handout. They have requested referrals to: [facility] [address] [place] [address] Note routed to a Assistant Professor Of Radiology who will communicate referrals to facilities and [...] daughter, Cielo, will be coming in from [place] on 02/18, to stay with him , in his home ,at discharge. Pt states that she is able to provide support/assist for any needs that he may have when discharged. Plan: dc to home A member of the Care Management team will continue to monitor progress, follow for continuity of care and assist with transition of care planning. Reina Greene RN CM, BSN, [facility]- Ext [phone] * Plan of Care - Binta Trinidad [...] as Appropriate) * Brief Op Note - Hayder Graham MD - 02/17/2024 12:46 PM EDT Brief Operative Note Patient Name: Karlos Garcia : [id number] MR#: [id number] Case Date: 02/17/2024 Surgeon: Surgeon(s) and Role: * Hayder Graham MD - Primary * Neftali Menon PA - Physician Operations Technician Preoperative diagnosis: CAD Postoperative diagnosis: CAD, [...] mL Drains: Mediastinal and Left pleural Disposition: [facility] Condition: doing well without problems Attestation: Case Date: 02/17/2024 I performed this procedure without the involvement of a resident. HAYDER GRAHAM MD 02/17/2024 * Op Note - Hayder Graham MD - 02/17/2024 8:20 AM EDT [facility] Operative Note Patient Name: Karlos Garcia : [id number] MR#: [id number] Case Date: 02/17/2024 Surgeon: Surgeons and Role: * Hayder Graham MD - Primary * Neftali Menon PA - Physician Operations Technician Preoperative diagnosis: CAD Postoperative diagnosis: CAD, intraoperative MEMA confirmed the presence of severe, bicuspid calcific [...] mL Drains: Mediastinal and Left pleural Disposition: [facility] Procedure Description: The patient was brought [...] not need to include opening and closing). HAYDER GRAHAM MD 03/02/2024 documented in this encounter Plan of Treatment Upcoming Encounters Date Type Department Care Team (Late st Contact Info) Description 05/27/2024 11:00 AM EDT Office Visit Cardiology at [address] [address] Neftali Ernandez MD [facility] [place] [address] Scheduled Orders Name Type Priority Associated Diagnoses [...] Aortic Valve Open W Cardiopulmonary Bypass Homogrf/Stent ([id number]) Yes 02/17/2024 7:28 AM EDT CAD Cabg, Artery-Vein, Two (60766) Yes 02/17/2024 7:28 AM EDT CAD Cabg, Arterial, Single (47393) Yes 02/17/2024 7:28 AM EDT CAD Endoscopy W/Video-Asst Vein Randolph, Cabg (83192) Yes 02/17/2024 7:28 AM EDT CAD POCT GLUCOSE Routine 02/17/2024 6:38 AM EDT TRANSESOPHAGEAL ECHOCARDIOGRAM IN THE OR Routine 02/17/2024 6:33 AM EDT Aortic valve stenosis, etiology of cardiac valve disease unspecified LAB SCAN 02/17/2024 12:00 AM EDT IMPLANTABLE DEVICES SCAN 02/17/2024 12:00 AM EDT documented in this encounter Results * Potassium (02/24/2024 4:42 AM EDT) Potassium 4.0 3.5 - 5.0 mmol/L [facility] Comment: Please note: ??Patients with WBC >100,000 may have falsely elevated Potassium levels. ??For accurate Potassium quantification in these patients send serum separator tube (gold top) for subsequent determinations. ??Contact the Clinical Chemistry Laboratory if there are any questions. Blood 02/24/2024 4:42 AM EDT 02/24/2024 4:59 AM EDT Narrative Resulting Agency Comment Spec In Lab Hayder Graham MD CHEMISTRY ORDERABLE S [facility] [place] [address] * (ABNORMAL) Basic Metabolic Panel (non-fasting) (02/23/2024 4:24 AM EDT) Glucose Lvl 117 65 - 199 mg/dL [facility] Comment:Diabetes: >=200 mg/d L plus symptoms BUN 18 10 - 20 mg/dL [facility] Creatinine 0.71(L) 0.80 - 1.50 mg/dL [facility] Sodium 138 135 - 145 mmol/L [facility] Potassium 4.4 3.5 - 5.0 mmol/L [facility] Comment: Please note: ??Patients with WBC >100,000 may have falsely elevated Potassium levels. ??For accurate Potassium quantification in these patients send serum separator tube (gold top) for subsequent determinations. ??Contact the Clinical Chemistry Laboratory if there are any questions. Chloride 101 98 - 107 mmol/L [facility] CO2 26 22 - 31 mmol/L [facility] Anion Gap 11 5 - 15 mmol/L [facility] Calcium 8.8 8.5 - 10.5 mg/dL [facility] Estimated GFR 102 >=60 mL/min/1. 73 m?? [facility] Comment: This patient's estimated GFR [...] In Lab Romeo Carpio MD CHEMISTRY ORDERABLES [facility] [place] [address] * Potassium (02/22/2024 4:30 AM EDT) Potassium 3.5 3.5 - 5.0 mmol/L [facility] Comment: Please note: ??Patients with WBC >100,000 may have falsely elevated Potassium levels. ??For accurate Potassium quantification in these patients send serum separator tube (gold top) for subsequent determinations. ??Contact the Clinical Chemistry Laboratory if there are any questions. Blood 02/22/2024 4:30 AM EDT 02/22/2024 5:12 AM EDT Narrative Resulting Agency Comment Spec In Lab Hayder Graham MD CHEMISTRY ORDERABLE S [facility] [place] [address] * (ABNORMAL) Basic Metabolic Panel (non-fasting) (02/21/2024 9:45 AM EDT) Glucose Lvl 123 65 - 199 mg/dL [facility] Comment:Diabetes: >=200 mg/d L plus symptoms BUN 22(H) 10 - 20 mg/dL [facility] Creatinine 0.78(L) 0.80 - 1.50 mg/dL [facility] Sodium 140 135 - 145 mmol/L [facility] Potassium 3.9 3.5 - 5.0 mmol/L [facility] Comment: Please note: ??Patients with WBC >100,000 may have falsely elevated Potassium levels. ??For accurate Potassium quantification in these patients send serum separator tube (gold top) for subsequent determinations. ??Contact the Clinical Chemistry Laboratory if there are any questions. Chloride 100 98 - 107 mmol/L [facility] CO2 Not Perf 22 - 31 [facility] Comment:Add-on request. Yolanda le too old to perform test. Anion Gap Unable to Calculate 5 - 15 mmol/L [facility] Calcium 8.6 8.5 - 10.5 mg/dL [facility] Estimated GFR 100 >=60 mL/min/1 .73 m?? [facility] Comment: This patient's estimated GFR [...] Organization Address City/[facility]/ZIP Co de Phone Number [facility] [place] [address] * Lactate, whole blood, send to lab ([facility]) (02/21/2024 9:45 AM EDT) [facility] Lactate WB 2.0 0.5 - 2.2 mmol/L [facility] Blood 02/21/2024 9:45 AM EDT 02/21/2024 9:52 AM EDT Narrative Resulting Agency Comment Spec In Lab Hayder Graham MD CHEMISTRY ORDERABLE S Performing Organization Address [facility] Co de Phone Number [facility] [place] [address] * (ABNORMAL) Hepatic Function Panel (02/21/2024 9:45 AM EDT) [facility] Total Protein 5.7(L) 6.1 - 8.0 g/dL [facility] Albumin 3.3 3.2 - 5.2 g/dL [facility] AST 13 0 - 39 unit/L [facility] ALT 16 0 - 55 unit/L [facility] Alk Phos 63 40 - 130 unit/L [facility] Total Bilirubin 0.6 0.2 - 1.3 mg/dL [facility] Bili, Direct 0.2 0.0 - 0.3 mg/dL [facility] Blood 02/21/2024 9:45 AM EDT 02/21/2024 9:52 AM EDT Narrative Resulting Agency Comment Spec In Lab Hayder Graham MD CHEMISTRY ORDERABLE S Performing Organization Address City/[facility]/ZIP Co de Phone Number [facility] [place] [address] * Lipase (02/21/2024 9:45 AM EDT) Lipase 56 0 - 60 unit/L [facility] Blood 02/21/2024 9:45 AM EDT 02/21/2024 9:52 AM EDT Narrative Resulting Agency Comment Spec In Lab Hayder Graham MD CHEMISTRY ORDERABLE S [facility] [place] [address] * Amylase (02/21/2024 9:45 AM EDT) Amylase 69 28 - 100 unit/L [facility] Blood 02/21/2024 9:45 AM EDT 02/21/2024 9:52 AM EDT Narrative Resulting Agency Comment Spec In Lab Hayder Graham MD CHEMISTRY ORDERABLE S Performing Organization Address City/[facility]/ZIP Co de Phone Number [facility] [place] [address] * Potassium (02/21/2024 3:08 AM EDT) Potassium 3.8 3.5 - 5.0 mmol/L [facility] Comment: Please note: ??Patients with WBC >100,000 may have falsely elevated Potassium levels. ??For accurate Potassium quantification in these patients send serum separator tube (gold top) for subsequent determinations. ??Contact the Clinical Chemistry Laboratory if there are any questions. Blood 02/21/2024 3:08 AM EDT 02/21/2024 3:28 AM EDT Narrative Resulting Agency Comment Spec In Lab Hayder Graham MD CHEMISTRY ORDERABLE S [facility] [place] [address] * XR Chest PA & Lateral (Generic) (02/20/2024 10:19 AM EDT) WORKSTATION ID [id number] RAD Anatomical Region Laterality Modality Chest N/A Digital Radiogra phy Impressions 02/20/2024 1:11 PM EDT Small pleural effusions. No pneumothorax Thank you for letting us participate in the care of this patient. ??If you are a health care provider and have any questions regarding this report, please contact the number below. ??For patients who have questions please contact the health personal caregiver that requested your imaging first. ? Narrative 02/20/2024 1:11 PM EDT EXAMINATION: XR CHEST PA AND LATERAL (GENERIC) CLINICAL HISTORY: s/p AVR/CABGx3 TECHNIQUE: PA and lateral views of the chest COMPARISON: 02/17/2024 FINDINGS: Support devices: Interval removal of [place] catheter, endotracheal tube and mediastinal chest tubes The cardiac silhouette is stable status post median sternotomy, CABG and aortic valve replacement. There are small pleural effusions. No pneumothorax. Procedure Note Rogerio Cruz MD - 02/20/2024 EXAMINATION: XR CHEST PA AND LATERAL (GENERIC) CLINICAL HISTORY: s/p AVR/CABGx3 TECHNIQUE: PA and lateral views of the chest COMPARISON: 02/17/2024 FINDINGS: Support devices: Interval removal of [place] catheter, endotracheal tubeand mediastinal chest tubes The [...] who have questions please contactthe health personal caregiver that requested your imaging first. Hayder Graham MD IMG DX ORDERABLES * Scan, Peripheral Blood (02/20/2024 4:23 AM EDT) Plat Estimate Decreased [facility] RBC Morphology Normal [facility] Blood 02/20/2024 4:23 AM EDT 02/20/2024 4:42 AM EDT Narrative Resulting Agency Comment Spec In Lab Minnie FRENCH HEMATOLOGY CECILIO ALEMAN [facility] [place] [id number] * (ABNORMAL) Differential, Automated (02/20/2024 4:23 AM EDT) Neutrophils % 81.7 % [facility] Neutr Abs (ANC) 10.37(H) 1.70 - 6.10 x10(3)/mc L [facility] Lymphocytes % 7.4 % [facility] Lymphocytes Abs 0.9 0.9 - 3.2 x10(3)/mc L [facility] Monocytes % 9.7 % [facility] Monocyte Abs 1.2(H) 0.3 - 0.9 x10(3)/mc L [facility] Eosinophils % 0.1 % [facility] Eosinophils Abs 0.0 0.0 - 0.4 x10(3)/mc L [facility] Basophils % 0.2 % [facility] Basophils Abs 0.0 0.0 - 0.1 x10(3)/mc L [facility] Immature Gran % 0.90 % [facility] Comment: Immature granulocytes(IG's)percentage and absolute count will include metamyelocytes, myelocytes, and promyelocytes. Blood smears from CBCs yielding IG's will be scanned manually for concordance. If this scan disagrees with the automated IG or if promyelocytes are noted, a manual differential will be performed. [place] Gran Abs 0.12(H) 0.00 - 0.04 x10(3)/ L [facility] Blood 02/20/2024 4:23 AM EDT 02/20/2024 4:42 AM EDT Narrative Resulting Agency Comment Spec In Lab Minnie FRENCH HEMATOLOGY CECILIO ALEMAN [facility] [place] [address] * (ABNORMAL) Hemogram (02/20/2024 4:23 AM EDT) WBC 12.7(H) 4.0 - 9.5 x10(3)/[facility] LABORATORY RBC 4.26(L) 4.58 - 5.54 x10(6)/[facility] LABORATORY Hemoglobin 12.3(L) 13.7 - 16.5 g/dL [facility] Hematocrit 37.1(L) 40.5 - 48.5 % [facility] MCV 87.1 82.9 - 93.1 fL [facility] MCH 28.9 27.5 - 32.1 pg [facility] MCHC 33.2 32.0 - 35.7 g/dL [facility] Platelets 88(L) 145 - 357 x10(3)/[facility] RDWSD 43.5 36.0 - 45.0 fL [facility] RDWCV 13.7 11.4 - 13.8 % [facility] MPV 10.2 7.6 - 12.9 fL [facility] nRBC % Auto 0.0 % [facility] nRBC Abs Auto 0.000 0.000 - 0.000 x10(3)/mcL [facility] Blood 02/20/2024 4:23 AM EDT 02/20/2024 4:42 AM EDT Narrative Resulting Agency Comment Spec In Lab Minnie FRENCH HEMATOLOGY CECILIO ALEMAN [facility] [place] [address] * (ABNORMAL) Basic Metabolic Panel (non-fasting) (02/20/2024 4:23 AM EDT) Glucose Lvl 113 65 - 199 mg/dL [facility] Comment:Diabetes: >=200 mg/d L plus symptoms BUN 20 10 - 20 mg/dL [facility] Comment:result rechecked-[place] Creatinine 0.71(L) 0.80 - 1.50 mg/dL [facility] Sodium 135 135 - 145 mmol/L [facility] Potassium 3.9 3.5 - 5.0 mmol/L [facility] Comment: Please note: ??Patients with WBC >100,000 may have falsely elevated Potassium levels. ??For accurate Potassium quantification in these patients send serum separator tube (gold top) for subsequent determinations. ??Contact the Clinical Chemistry Laboratory if there are any questions. Chloride 102 98 - 107 mmol/L [facility] CO2 25 22 - 31 mmol/L [facility] Anion Gap 8 5 - 15 mmol/L [facility] Calcium 8.7 8.5 - 10.5 mg/dL [facility] Comment:result rechecked-[place] Estimated GFR 102 >=60 mL/min/1. 73 m?? [facility] Comment: This patient's estimated GFR [...] Narrative Resulting Agency Comment Spec In Lab Hayder Graham MD CHEMISTRY ORDERABLE S Performing Organization Address [facility] de Phone Number [facility] [place] [address] * Potassium (02/19/2024 3:57 AM EDT) [facility] Potassium 4.3 3.5 - 5.0 mmol/L [facility] Comment: Please note: ??Patients with WBC >100,000 may have falsely elevated Potassium levels. ??For accurate Potassium quantification in these patients send serum separator tube (gold top) for subsequent determinations. ??Contact the Clinical Chemistry Laboratory if there are any questions. Blood 02/19/2024 3:57 AM EDT 02/19/2024 4:19 AM EDT Narrative Resulting Agency Comment Spec In Lab Hayder Graham MD CHEMISTRY ORDERABLE S Performing Organization Address [facility] Co de Phone Number [facility] [place] [address] * POCT Glucose (02/18/2024 8:24 AM EDT) POC Glucose 157 65 - 199 mg/dL [facility] Comment: Supplemental ranges: <140 mg/dL before meals <180 mg/dL all other times of the day Blood 02/18/2024 8:24 AM EDT 02/18/2024 8:24 AM EDT Hayder Graham MD POINT OF CARE TEST ORDERABLES [facility] [place] [address] * Scan, Peripheral Blood (02/18/2024 1:40 AM EDT) Pathologist [facility] Plat Estimate Decreased [facility] RBC Morphology Normal [facility] Blood 02/18/2024 1:40 AM EDT 02/18/2024 1:56 AM EDT Narrative Resulting Agency Comment Spec In Lab Neftali FRENCH HEMATOLOGY ORDER OLE Performing Organization Address City/[facility]/ZIP Co de Phone Number [facility] [place] [address] * (ABNORMAL) Differential, Automated (02/18/2024 1:40 AM EDT) [facility] Neutrophils % 87.1 % [facility] Neutr Abs (ANC) 15.03(H) 1.70 - 6.10 x10(3)/mc L [facility] Lymphocytes % 3.0 % [facility] Lymphocytes Abs 0.5(L) 0.9 - 3.2 x10(3)/mc L [facility] Monocytes % 9.1 % [facility] Monocyte Abs 1.6(H) 0.3 - 0.9 x10(3)/mc L [facility] Eosinophils % 0.0 % [facility] Eosinophils Abs 0.0 0.0 - 0.4 x10(3)/mc L [facility] Basophils % 0.2 % [facility] Basophils Abs 0.0 0.0 - 0.1 x10(3)/mc L [facility] Immature Gran % 0.60 % [facility] Comment: Immature granulocytes(IG's)percentage and absolute count will include metamyelocytes, myelocytes, and promyelocytes. Blood smears from CBCs yielding IG's will be scanned manually for concordance. If this scan disagrees with the automated IG or if promyelocytes are noted, a manual differential will be performed. [place] Gran Abs 0.10(H) 0.00 - 0.04 x10(3)/mc L [facility] Blood 02/18/2024 1:40 AM EDT 02/18/2024 1:56 AM EDT Narrative Resulting Agency Comment Spec In Lab Neftali FRENCH HEMATOLOGY ORDER OLE [facility] [place] [address] * (ABNORMAL) Hemogram (02/18/2024 1:40 AM EDT) WBC 17.2(H) 4.0 - 9.5 x10(3)/[facility] LABORATORY RBC 4.71 4.58 - 5.54 x10(6)/[facility] LABORATORY Hemoglobin 13.7 13.7 - 16.5 g/dL [facility] Hematocrit 39.2(L) 40.5 - 48.5 % [facility] MCV 83.2 82.9 - 93.1 fL [facility] MCH 29.1 27.5 - 32.1 pg [facility] MCHC 34.9 32.0 - 35.7 g/dL [facility] Platelets 147 145 - 357 x10(3)/[facility] LABORATORY RDWSD 39.9 36.0 - 45.0 fL [facility] RDWCV 13.2 11.4 - 13.8 % [facility] MPV 9.9 7.6 - 12.9 fL [facility] nRBC % Auto 0.0 % [facility] nRBC Abs Auto 0.000 0.000 - 0.000 x10(3)/[facility] LABORATORY Blood 02/18/2024 1:40 AM EDT 02/18/2024 1:56 AM EDT Narrative Resulting Agency Comment Spec In Lab Neftali FRENCH HEMATOLOGY ORDER OLE [facility] [place] [address] * (ABNORMAL) Basic Metabolic Panel (non-fasting) (02/18/2024 1:40 AM EDT) Glucose Lvl 176 65 - 199 mg/dL [facility] Comment:Diabetes: >=200 mg/d L plus symptoms BUN 10 10 - 20 mg/dL [facility] Creatinine 0.65(L) 0.80 - 1.50 mg/dL [facility] Sodium 135 135 - 145 mmol/L [facility] Potassium 4.2 3.5 - 5.0 mmol/L [facility] Comment: Please note: ??Patients with WBC >100,000 may have falsely elevated Potassium levels. ??For accurate Potassium quantification in these patients send serum separator tube (gold top) for subsequent determinations. ??Contact the Clinical Chemistry Laboratory if there are any questions. Chloride 106 98 - 107 mmol/L [facility] CO2 20(L) 22 - 31 mmol/L [facility] Anion Gap 9 5 - 15 mmol/L [facility] Calcium 7.6(L) 8.5 - 10.5 mg/dL [facility] Estimated GFR 105 >=60 mL/min/1. 73 m?? [facility] Comment: This patient's estimated GFR [...] Narrative Resulting Agency Comment Spec In Lab Hayder Graham MD CHEMISTRY ORDERABLE S Performing Organization Address City/[facility]/ZIP Co de Phone Number [facility] [place] [address] * (ABNORMAL) Troponin (02/18/2024 1:40 AM EDT) Troponin-T HS 342(H) <=22 ng/L [facility] Comment: This patient's troponin T concentration was determined using the Amren 5th Generation troponin T assay. The 99th [...] troponin value can be found in the [facility] Test Catalog Troponin - [facility] Test Catalog Reference: Fourth [place] Definition of Myocardial Infarction. Journal of the [place] [employer] 2018;72:7827-3433 Blood 02/18/2024 1:40 AM EDT 02/18/2024 1:56 AM EDT Narrative Resulting Agency Comment Spec In Lab Hayder Graham MD CHEMISTRY ORDERABLE S [facility] [place] [address] * POCT Glucose (02/17/2024 8:13 PM EDT) POC Glucose 142 65 - 199 mg/dL [facility] Comment: Supplemental ranges: <140 mg/dL before meals <180 mg/dL all other times of the day Blood 02/17/2024 8:13 PM EDT 02/17/2024 8:13 PM EDT Hayder Graham MD POINT OF CARE TEST ORDERABLES Performing Organization Address [facility] Co de Phone Number [facility] [place] [address] * POCT Glucose (02/17/2024 5:42 PM EDT) POC Glucose 160 65 - 199 mg/dL [facility] Comment: Supplemental ranges: <140 mg/dL before meals <180 mg/dL all other times of the day Blood 02/17/2024 5:42 PM EDT 02/17/2024 5:42 PM EDT Hayder Graham MD POINT OF CARE TEST ORDERABLES Performing Organization Address [facility] Co de Phone Number [facility] [place] [address] * Hemoglobin (02/17/2024 5:42 PM EDT) Hemoglobin 13.7 13.7 - 16.5 g/dL [facility] Blood 02/17/2024 5:42 PM EDT 02/17/2024 6:10 PM EDT Narrative Resulting Agency Comment Spec In Lab Hayder Graham MD HEMATOLOGY ORDERABL ES Performing Organization Address [facility]/ZIP Co de Phone Number [facility] [place] [address] * Potassium (02/17/2024 5:42 PM EDT) Potassium 4.3 3.5 - 5.0 mmol/L [facility] Comment: Please note: ??Patients with WBC >100,000 may have falsely elevated Potassium levels. ??For accurate Potassium quantification in these patients send serum separator tube (gold top) for subsequent determinations. ??Contact the Clinical Chemistry Laboratory if there are any questions. Blood 02/17/2024 5:42 PM EDT 02/17/2024 6:10 PM EDT Narrative Resulting Agency Comment Spec In Lab Hayder Graham MD CHEMISTRY ORDERABLE S Performing Organization Address City/State/[facility] Co de Phone Number [facility] [place] [address] * (ABNORMAL) BLOOD GAS 2 ARTERIAL (02/17/2024 4:18 PM EDT) pH Art 7.34(L) 7.35 - 7.45 [facility] pCO2 Art 40 35 - 45 mmHg [facility] pO2 Art 78(L) 85 - 104 mmHg [facility] HCO3 Art 20.8 20.0 - 26.0 mmol/L [facility] BE Art -5.1(L) -3.0 - 3.0 mmol/L [facility] Hgb Blood Gas 14.6 13.7 - 16.5 g/dL [facility] O2HB Art 93.0(L) 94.0 - 97.0 % [facility] COHB Art 0.3 % [facility] Comment: Nonsmokers: 0.5-1.5% COHB Smokers: Variable, but usually less than 10% Toxic: 20-30% COHB Lethal: Greater than 60% COHB METHB Art 0.8 <=1.5 % [facility] Na Whole Blood 136 135 - 145 mmol/L [facility] K Whole Blood 4.1 3.5 - 5.0 mmol/L [facility] Comment: Please note: Patients with WBC >100,000 may have falsely elevated Potassium levels. Contact the Clinical Chemistry Laboratory if there are any questions. ICa Whole Blood 1.10(L) 1.15 - 1.33 mmol/L [facility] Comment: Note: ??Total bilirubin higher than 20 mg/dL may lead to falsely low ionized calcium. CL Whole Blood 105 98 - 107 mmol/L [facility] Gluc Whole Bld 159 65 - 199 mg/dL [facility] Comment:Diabetes: >=200 mg/d L plus symptoms. Lactate WB 1.2 0.5 - 2.2 mmol/L [facility] FIO2 Art 40 % [facility] PF Ratio Art 195 [facility] Blood 02/17/2024 4:18 PM EDT 02/17/2024 4:18 PM EDT Hayder Graham MD CHEMISTRY ORDERABLE S [facility] [address] * XR Chest One View (02/17/2024 1:44 PM EDT) [employer] WORKSTATION ID [id number] RAD Anatomical Region Laterality Modality Chest N/A Digital Radiogra phy Impressions 02/17/2024 2:12 PM EDT 1. ??No definite pleural fluid collection or pneumothorax. 2. ??Right IJ [place] catheter tip terminates in a descending branch [...] have questions please contact the health personal caregiver that requested your imaging first. ? Narrative 02/17/2024 2:12 PM EDT EXAMINATION: XR CHEST ONE VIEW CLINICAL HISTORY: s/p avr/cabg eval effusions TECHNIQUE: 1 view of the chest COMPARISON: Chest x-ray 01/09/2024, chest CT 02/03/2024 FINDINGS: ET tube tip terminates 5.2 cm above the carlos. Right IJ [place] catheter tip terminates in a descending branch [...] 5.2 cm above the carlos. Right IJ [place]-Ganzcatheter tip terminates in a descending branch of [...] fluid collection or pneumothorax. 2. Right IJ [place] catheter tip terminates in a descending branch ofthe right pulmonary artery. Suggest catheter retraction. 3. Additional support lines and tubes as above. Thank you for letting us participate in the care of this patient. If youare a health care provider and have any questions regarding this report,please contact the number below. For patients who have questions please contactthe health personal caregiver that requested your imaging first. Hayder Graham MD IMG DX ORDERABLES * (ABNORMAL) BLOOD GAS 2 ARTERIAL (02/17/2024 1:31 PM EDT) pH Art 7.35 7.35 - 7.45 [facility] pCO2 Art 39 35 - 45 mmHg [facility] pO2 Art 320(H) 85 - 104 mmHg [facility] HCO3 Art 21.4 20.0 - 26.0 mmol/L [facility] BE Art -4.2(L) -3.0 - 3.0 mmol/L [facility] Hgb Blood Gas 14.1 13.7 - 16.5 g/dL [facility] O2HB Art 97.9(H) 94.0 - 97.0 % [facility] COHB Art 0.3 % [facility] Comment: Nonsmokers: 0.5-1.5% COHB Smokers: Variable, but usually less than 10% Toxic: 20-30% COHB Lethal: Greater than 60% COHB METHB Art 0.7 <=1.5 % [facility] Na Whole Blood 137 135 - 145 mmol/L [facility] K Whole Blood 4.2 3.5 - 5.0 mmol/L [facility] Comment: Please note: Patients with WBC >100,000 may have falsely elevated Potassium levels. Contact the Clinical Chemistry Laboratory if there are any questions. ICa Whole Blood 1.13(L) 1.15 - 1.33 mmol/L [facility] Comment: Note: ??Total bilirubin higher than 20 mg/dL may lead to falsely low ionized calcium. CL Whole Blood 108(H) 98 - 107 mmol/L [facility] Gluc Whole Bld 136 65 - 199 mg/dL [facility] Comment:Diabetes: >=200 mg/d L plus symptoms. Lactate WB 1.1 0.5 - 2.2 mmol/L [facility] FIO2 Art 100 % [facility] PF Ratio Art 320 [facility] Blood 02/17/2024 1:31 PM EDT 02/17/2024 1:31 PM EDT Hayder Graham MD CHEMISTRY ORDERABLE S Performing Organization Address [facility] Co de Phone Number [facility] [place] [address] * (ABNORMAL) Coox2 (02/17/2024 1:21 PM EDT) pO2 Coox 44 mmHg [facility] Hgb Blood Gas 13.1(L) 13.7 - 16.5 g/dL [facility] O2HB Coox 76.4 % [facility] COHB Coox 0.3 % [facility] Comment: Nonsmokers: 0.5-1.5% COHB Smokers: Variable, but usually less than 10% Toxic: 20-30% COHB Lethal: Greater than 60% COHB METHB Coox 0.8 <=1.5 % [facility] Source Coox Mixed Venous [facility] Blood 02/17/2024 1:21 PM EDT 02/17/2024 1:21 PM EDT Hayder Graham MD CHEMISTRY ORDERABLE S Performing Organization Address [facility] Co de Phone Number [facility] [place] [address] * (ABNORMAL) BLOOD GAS 2 ARTERIAL (02/17/2024 12:14 PM EDT) pH Art 7.39 7.35 - 7.45 [facility] pCO2 Art 40 35 - 45 mmHg [facility] pO2 Art 338(H) 85 - 104 mmHg [facility] HCO3 Art 23.7 20.0 - 26.0 mmol/L [facility] BE Art -1.3 -3.0 - 3.0 mmol/L [facility] Hgb Blood Gas 11.0(L) 13.7 - 16.5 g/dL [facility] O2HB Art 98.8(H) 94.0 - 97.0 % [facility] COHB Art 0.3 % [facility] Comment: Nonsmokers: 0.5-1.5% COHB Smokers: Variable, but usually less than 10% Toxic: 20-30% COHB Lethal: Greater than 60% COHB METHB Art 0.3 <=1.5 % [facility] Na Whole Blood 135 135 - 145 mmol/L [facility] K Whole Blood 5.1(H) 3.5 - 5.0 mmol/L [facility] Comment: Please note: Patients with WBC >100,000 may have falsely elevated Potassium levels. Contact the Clinical Chemistry Laboratory if there are any questions. ICa Whole Blood 1.13(L) 1.15 - 1.33 mmol/L [facility] Comment: Note: ??Total bilirubin higher than 20 mg/dL may lead to falsely low ionized calcium. CL Whole Blood 106 98 - 107 mmol/L [facility] Gluc Whole Bld 132 65 - 199 mg/dL [facility] Comment:Diabetes: >=200 mg/d L plus symptoms. Lactate WB 1.4 0.5 - 2.2 mmol/L [facility] Blood 02/17/2024 12:1 4 PM EDT 02/17/2024 12:14 PM EDT Hayder Graham MD CHEMISTRY ORDERABLE S Performing Organization Address [facility]/ZIP Co de Phone Number [facility] [place] [address] * (ABNORMAL) Fibrinogen (02/17/2024 12:10 PM EDT) Fibrinogen 154(L) 200 - 393 mg/dL [facility] Comment: OR Result called by ?? LOMARL OR Results read back by: ? alondra pagan at 2024-02-17 12:41:48 A fibrinogen level >100 mg/dL is adequate for hemostasis in most patients without underlying bleeding disorders. Blood 02/17/2024 12:1 0 PM EDT 02/17/2024 12:19 PM EDT Narrative Resulting Agency Comment Spec In Lab Tara York MD HEMATOLOGY ORDERABLE S Performing Organization Address [facility] Co de Phone Number [facility] [place] [address] * (ABNORMAL) Thrombin time (02/17/2024 12:10 PM EDT) Thrombin Time 18(H) 10 - 17 sec [facility] Comment: OR Result called by [...] MD HEMATOLOGY ORDERABLE S Performing Organization Address [facility]/ZIP Co de Phone Number [facility] [place] [address] * APTT (02/17/2024 12:10 PM EDT) PTT 33 25 - 37 sec [facility] Comment: OR Result called by ?? LOMARL OR Results read back by: ? alondra ej at 2024-02-17 12:41:48 The PTT is NOT appropriate for heparin monitoring. Use the Anti-Xa level for heparin monitoring (HEP UFH) or LMWH monitoring (HEP LMW). A PTT less than 37 seconds generally indicates adequate hemostasis. Blood 02/17/2024 12:1 0 PM EDT 02/17/2024 12:19 PM EDT Narrative Resulting Agency Comment Spec In Lab Tara York MD HEMATOLOGY ORDERABLE S Performing Organization Address [facility] Co de Phone Number [facility] [place] [address] * (ABNORMAL) Prothrombin Time (02/17/2024 12:10 PM EDT) PT 16.7(H) 9.4 - 12.5 sec [facility] Comment: OR Result called by ?? LOMARL OR Results read back by: ? alondra pagan at 2024-02-17 12:41:48 INR 1.5 [facility] Comment: OR Result [...] MD HEMATOLOGY ORDERABLE S Performing Organization Address City/[facility]/ZIP Co de Phone Number [facility] [place] [address] * (ABNORMAL) Hemogram (02/17/2024 12:10 PM EDT) [facility] WBC 11.1(H) 4.0 - 9.5 x10(3)/[facility] RBC 3.50(L) 4.58 - 5.54 x10(6)/[facility] Hemoglobin 10.4(L) 13.7 - 16.5 g/dL [facility] Hematocrit 30.2(L) 40.5 - 48.5 % [facility] Comment: This result has been called to ALONDRA PAGAN by Eddie López on 02 17 2024 at 1226, and has been read back. MCV 86.3 82.9 - 93.1 [facility] MCH 29.7 27.5 - 32.1 pg [facility] MCHC 34.4 32.0 - 35.7 g/dL [facility] Platelets 118(L) 145 - 357 x10(3)/[facility] RDWSD 40.2 36.0 - 45.0 [facility] RDWCV 12.8 11.4 - 13.8 % [facility] MPV 9.5 7.6 - 12.9 [facility] nRBC % Auto 0.0 % [facility] nRBC Abs Auto 0.000 0.000 - 0.000 x10(3)/[facility] Blood 02/17/2024 12:1 0 PM EDT 02/17/2024 12:19 PM EDT Narrative Resulting Agency Comment Spec In Lab Tara York MD HEMATOLOGY ORDERABLE S [facility] [place] [address] * (ABNORMAL) BLOOD GAS 2 ARTERIAL (02/17/2024 11:43 AM EDT) pH Art 7.38 7.35 - 7.45 [facility] pCO2 Art 40 35 - 45 mmHg [facility] pO2 Art 304(H) 85 - 104 mmHg [facility] HCO3 Art 23.2 20.0 - 26.0 mmol/L [facility] BE Art -1.9 -3.0 - 3.0 mmol/L [facility] Hgb Blood Gas 11.1(L) 13.7 - 16.5 g/dL [facility] O2HB Art 98.6(H) 94.0 - 97.0 % [facility] COHB Art 0.3 % [facility] Comment: Nonsmokers: 0.5-1.5% COHB Smokers: Variable, but usually less than 10% Toxic: 20-30% COHB Lethal: Greater than 60% COHB METHB Art 0.3 <=1.5 % [facility] Na Whole Blood 133(L) 135 - 145 mmol/L [facility] K Whole Blood 6.2(Critic al) 3.5 - 5.0 mmol/L [facility] Comment: Noted by instrument lens grinder. Please note: Patients with WBC >100,000 may have falsely elevated Potassium levels. Contact the Clinical Chemistry Laboratory if there are any questions. ICa Whole Blood 0.97(L) 1.15 - 1.33 mmol/L [facility] Comment: Note: ??Total bilirubin higher than 20 mg/dL may lead to falsely low ionized calcium. CL Whole Blood 104 98 - 107 mmol/L [facility] Gluc Whole Bld 128 65 - 199 mg/dL [facility] Comment:Diabetes: >=200 mg/d L plus symptoms. Lactate WB 1.1 0.5 - 2.2 mmol/L [facility] Blood 02/17/2024 11:4 3 AM EDT 02/17/2024 11:43 AM EDT Hayder Graham MD CHEMISTRY ORDERABLE S [facility] [place] [address] * (ABNORMAL) BLOOD GAS 2 ARTERIAL (02/17/2024 11:08 AM EDT) pH Art 7.38 7.35 - 7.45 [facility] pCO2 Art 38 35 - 45 mmHg [facility] pO2 Art 334(H) 85 - 104 mmHg [facility] HCO3 Art 22.0 20.0 - 26.0 mmol/L [facility] BE Art -3.2(L) -3.0 - 3.0 mmol/L [facility] Hgb Blood Gas 10.8(L) 13.7 - 16.5 g/dL [facility] O2HB Art 98.7(H) 94.0 - 97.0 % [facility] COHB Art 0.3 % [facility] Comment: Nonsmokers: 0.5-1.5% COHB Smokers: Variable, but usually less than 10% Toxic: 20-30% COHB Lethal: Greater than 60% COHB METHB Art 0.3 <=1.5 % [facility] Na Whole Blood 131(L) 135 - 145 mmol/L [facility] K Whole Blood 6.4(Critic al) 3.5 - 5.0 mmol/L [facility] Comment: Noted by instrument lens grinder. Please note: Patients with WBC >100,000 may have falsely elevated Potassium levels. Contact the Clinical Chemistry Laboratory if there are any questions. ICa Whole Blood 0.98(L) 1.15 - 1.33 mmol/L [facility] Comment: Note: ??Total bilirubin higher than 20 mg/dL may lead to falsely low ionized calcium. CL Whole Blood 104 98 - 107 mmol/L [facility] Gluc Whole Bld 127 65 - 199 mg/dL [facility] Comment:Diabetes: >=200 mg/d L plus symptoms. Lactate WB 1.0 0.5 - 2.2 mmol/L [facility] Blood 02/17/2024 11:0 8 AM EDT 02/17/2024 11:08 AM EDT Hayder Graham MD CHEMISTRY ORDERABLE S Performing Organization Address [facility]/ZIP Co de Phone Number [facility] [place] [address] * (ABNORMAL) Hemoglobin and Hematocrit, blood (02/17/2024 11:04 AM EDT) Hemoglobin 9.6(L) 13.7 - 16.5 g/dL [facility] Hematocrit 28.0(L) 40.5 - 48.5 % [facility] Comment: This result has been called to ALONDRA PAGAN by Eddie López on 02 17 2024 at 1120, and has been read back. Blood 02/17/2024 11:0 4 AM EDT 02/17/2024 11:12 AM EDT Narrative Resulting Agency Comment Spec In Lab Hayder Graham MD HEMATOLOGY ORDERABL ES Performing Organization Address [facility]/ZIP Co de Phone Number [facility] [place] [address] * (ABNORMAL) Platelet count (02/17/2024 11:04 AM EDT) Platelets 106(L) 145 - 357 x10(3)/mc L [facility] Plat Immature % 1.6 0.0 - 7.4 % [facility] Comment: Limitation of the Immature Platelet Fraction (IPF)-May be less reliable when the platelet count is less than 15y230/uL due to statistical imprecision. The IPF value [...] in a decreased state of production. References: [employer] The Clinical Value of the Immature Platelet Fraction (IPF) in Cell Recovery Document Number [id number] 03/2011 [employer] The Role of the Immature Platelet Fraction (IPF) in the Differential Diagnosis of Thrombocytopenia, Document MKT-[id number] V002/15/14 Blood 02/17/2024 11:0 4 AM EDT 02/17/2024 11:12 AM EDT Narrative Resulting Agency Comment Spec In Lab Hayder Graham MD HEMATOLOGY ORDERABL ES Performing Organization Address [facility] Co de Phone Number [facility] [place] [address] * (ABNORMAL) Fibrinogen (02/17/2024 11:04 AM EDT) Fibrinogen 149(L) 200 - 393 mg/dL [facility] Comment: OR Result called by ?? SALVLT OR Results read back by: ? Alondra Pagan at 2024-02-17 11:30:47 A fibrinogen level >100 mg/dL is adequate for hemostasis in most patients without underlying bleeding disorders. Blood 02/17/2024 11:0 4 AM EDT 02/17/2024 11:12 AM EDT Narrative Resulting Agency Comment Spec In Lab Hayder Graham MD HEMATOLOGY ORDERABL ES Performing Organization Address [facility] Co de Phone Number [facility] [place] [address] * (ABNORMAL) BLOOD GAS 2 ARTERIAL (02/17/2024 10:41 AM EDT) pH Art 7.37 7.35 - 7.45 [facility] pCO2 Art 44 35 - 45 mmHg [facility] pO2 Art 335(H) 85 - 104 mmHg [facility] HCO3 Art 24.9 20.0 - 26.0 mmol/L [facility] BE Art -0.4 -3.0 - 3.0 mmol/L [facility] Hgb Blood Gas 11.5(L) 13.7 - 16.5 g/dL [facility] O2HB Art 98.9(H) 94.0 - 97.0 % [facility] COHB Art 0.1 % [facility] Comment: Nonsmokers: 0.5-1.5% COHB Smokers: Variable, but usually less than 10% Toxic: 20-30% COHB Lethal: Greater than 60% COHB METHB Art 0.3 <=1.5 % [facility] Na Whole Blood 132(L) 135 - 145 mmol/L [facility] K Whole Blood 5.9(H) 3.5 - 5.0 mmol/L [facility] Comment: Please note: Patients with WBC >100,000 may have falsely elevated Potassium levels. Contact the Clinical Chemistry Laboratory if there are any questions. ICa Whole Blood 1.02(L) 1.15 - 1.33 mmol/L [facility] Comment: Note: ??Total bilirubin higher than 20 mg/dL may lead to falsely low ionized calcium. CL Whole Blood 104 98 - 107 mmol/L [facility] Gluc Whole Bld 129 65 - 199 mg/dL [facility] Comment:Diabetes: >=200 mg/d L plus symptoms. Lactate WB 1.1 0.5 - 2.2 mmol/L [facility] Blood 02/17/2024 10:4 1 AM EDT 02/17/2024 10:41 AM EDT Hayder Graham MD CHEMISTRY ORDERABLE S [facility] [place] [address] * (ABNORMAL) BLOOD GAS 2 ARTERIAL (02/17/2024 10:06 AM EDT) pH Art 7.38 7.35 - 7.45 [facility] pCO2 Art 42 35 - 45 mmHg [facility] pO2 Art 329(H) 85 - 104 mmHg [facility] HCO3 Art 24.7 20.0 - 26.0 mmol/L [facility] BE Art -0.3 -3.0 - 3.0 mmol/L [facility] Hgb Blood Gas 11.0(L) 13.7 - 16.5 g/dL [facility] O2HB Art 99.0(H) 94.0 - 97.0 % [facility] COHB Art 0.3 % [facility] Comment: Nonsmokers: 0.5-1.5% COHB Smokers: Variable, but usually less than 10% Toxic: 20-30% COHB Lethal: Greater than 60% COHB METHB Art 0.3 <=1.5 % [facility] Na Whole Blood 132(L) 135 - 145 mmol/L [facility] K Whole Blood 6.0(H) 3.5 - 5.0 mmol/L [facility] Comment: Please note: Patients with WBC >100,000 may have falsely elevated Potassium levels. Contact the Clinical Chemistry Laboratory if there are any questions. ICa Whole Blood 0.97(L) 1.15 - 1.33 mmol/L [facility] Comment: Note: ??Total bilirubin higher than 20 mg/dL may lead to falsely low ionized calcium. CL Whole Blood 102 98 - 107 mmol/L [facility] Gluc Whole Bld 123 65 - 199 mg/dL [facility] Comment:Diabetes: >=200 mg/d L plus symptoms. Lactate WB 1.1 0.5 - 2.2 mmol/L [facility] Blood 02/17/2024 10:0 6 AM EDT 02/17/2024 10:06 AM EDT Hayder Graham MD CHEMISTRY ORDERABLE S [facility] [place] [address] * Surgical Pathology Report (02/17/2024 10:01 AM EDT) FINAL DIAGNOSIS (AP) [id number] ? [facility]; A The signing pathologist has (i) examined the relevant preparation(s) for the specimen(s) and (ii) rendered or confirmed the diagnosis(es). . ?Surgical Pathology DIAGNOSIS Aortic valve leaflets, excision: Valve leaflets with myxoid degeneration, nodular fibrosis and dystrophic calcifications. Electronically signed by: ?Lindsay FERNANDEZ, Livier Gonzalez Verified: ??02/24/2024 13:49 ??Pathologist Performed at: ??-[facility] Dept. of Pathology, [place] [address] Salon Professional: Job Brewer MD, FCAP, ??CLIA Certificate: [id number] SPECIMEN(S) SUBMITTED A - Aortic Valve Leaflets, [...] Sections Processing Blocks submitted for decalcification: A1. Meat Supervisor sections in 1 cassette labeled A1. ??ajw 02/24/2024 1:49 PM EDT [facility] AORTIC STRUCTURE / Unknown 02/17/2024 10:01 AM EDT 02/17/2024 10:01 AM EDT Hayder Graham MD PATHOLOGY/CYTOLOGY ORDERABLES [facility] [place] [address] * Specimen to Pathology (02/17/2024 10:01 AM EDT) AP Specimen 02/17/2024 10:0 1 AM EDT 02/17/2024 10:01 AM EDT Narrative [facility] - 02/17/2024 10:01 AM EDT Specimen requisition ordered. ??Separate Pathology report to follow Hayder Graham MD PATHOLOGY/CYTOLOGY ORDERABLES Performing Organization Address City/[facility] [place] [address] * (ABNORMAL) BLOOD GAS 2 ARTERIAL (02/17/2024 9:35 AM EDT) pH Art 7.33(L) 7.35 - 7.45 [facility] pCO2 Art 35 35 - 45 mmHg [facility] pO2 Art 318(H) 85 - 104 mmHg [facility] HCO3 Art 17.9(L) 20.0 - 26.0 mmol/L [facility] BE Art -8.0(L) -3.0 - 3.0 mmol/L [facility] Hgb Blood Gas 11.0(L) 13.7 - 16.5 g/dL [facility] O2HB Art 98.8(H) 94.0 - 97.0 % [facility] COHB Art 0.3 % [facility] Comment: Nonsmokers: 0.5-1.5% COHB Smokers: Variable, but usually less than 10% Toxic: 20-30% COHB Lethal: Greater than 60% COHB METHB Art 0.3 <=1.5 % [facility] Na Whole Blood 131(L) 135 - 145 mmol/L [facility] K Whole Blood 5.8(H) 3.5 - 5.0 mmol/L [facility] Comment: Please note: Patients with WBC >100,000 may have falsely elevated Potassium levels. Contact the Clinical Chemistry Laboratory if there are any questions. ICa Whole Blood 0.98(L) 1.15 - 1.33 mmol/L [facility] Comment: Note: ??Total bilirubin higher than 20 mg/dL may lead to falsely low ionized calcium. CL Whole Blood 101 98 - 107 mmol/L [facility] Gluc Whole Bld 122 65 - 199 mg/dL [facility] Comment:Diabetes: >=200 mg/d L plus symptoms. Lactate WB 0.8 0.5 - 2.2 mmol/L [facility] Blood 02/17/2024 9:35 AM EDT 02/17/2024 9:35 AM EDT Hayder Graham MD CHEMISTRY ORDERABLE S [facility] [place] [address] * (ABNORMAL) BLOOD GAS 2 VENOUS (02/17/2024 9:34 AM EDT) pH Jose 7.22(Criti marquez) 7.32 - 7.42 [facility] Comment:Noted by instrument lens grinder. pCO2 Jose 43 41 - 51 mmHg [facility] Comment:Noted by instrument lens grinder. pO2 Jose 57(H) 25 - 40 mmHg [facility] Comment:Noted by instrument lens grinder. HCO3 Jose 17.1 mmol/L [facility] Comment:Noted by instrument lens grinder. BE Jose -10.6 mmol/L [facility] Comment:Noted by instrument lens grinder. Hgb Blood Gas 11.2(L) 13.7 - 16.5 g/dL [facility] Comment:Noted by instrument lens grinder. O2HB Jose 86.5 % [facility] Comment:Noted by instrument lens grinder. COHB Jose 0.3 % [facility] Comment: Noted by instrument lens grinder. Nonsmokers: 0.5-1.5% COHB Smokers: Variable, but usually less than 10% Toxic: 20-30% COHB Lethal: Greater than 60% COHB METHB Jose 0.0 <=1.5 % [facility] Comment:Noted by instrument lens grinder. Na Whole Blood 156(H) 135 - 145 mmol/L [facility] Comment:Noted by instrument lens grinder. K Whole Blood 5.5(H) 3.5 - 5.0 mmol/L [facility] Comment: Noted by instrument lens grinder. Please note: Patients with WBC >100,000 may have falsely elevated Potassium levels. Contact the Clinical Chemistry Laboratory if there are any questions. ICa Whole Blood 1.03(L) 1.15 - 1.33 mmol/L [facility] Comment: Noted by instrument lens grinder. Note: ??Total bilirubin higher than 20 mg/dL may lead to falsely low ionized calcium. CL Whole Blood 100 98 - 107 mmol/L [facility] Comment:Noted by instrument lens grinder. Gluc Whole Bld 132 65 - 199 mg/dL [facility] Comment: Noted by instrument lens grinder. Diabetes: >=200 mg/dL plus symptoms Lactate WB 1.0 0.5 - 2.2 mmol/L [facility] Comment:Noted by instrument lens grinder. BGas Source Venous [facility] Blood 02/17/2024 9:34 AM EDT 02/17/2024 9:34 AM EDT Hayder Graham MD CHEMISTRY ORDERABLE S [facility] [place] [address] * (ABNORMAL) BLOOD GAS 2 ARTERIAL (02/17/2024 8:07 AM EDT) pH Art 7.43 7.35 - 7.45 [facility] pCO2 Art 34(L) 35 - 45 mmHg [facility] pO2 Art 581(H) 85 - 104 mmHg [facility] HCO3 Art 21.7 20.0 - 26.0 mmol/L [facility] BE Art -2.6 -3.0 - 3.0 mmol/L [facility] Hgb Blood Gas 14.5 13.7 - 16.5 g/dL [facility] O2HB Art 99.0(H) 94.0 - 97.0 % [facility] COHB Art 0.4 % [facility] Comment: Nonsmokers: 0.5-1.5% COHB Smokers: Variable, but usually less than 10% Toxic: 20-30% COHB Lethal: Greater than 60% COHB METHB Art 0.3 <=1.5 % [facility] Na Whole Blood 139 135 - 145 mmol/L [facility] K Whole Blood 4.0 3.5 - 5.0 mmol/L [facility] Comment: Please note: Patients with WBC >100,000 may have falsely elevated Potassium levels. Contact the Clinical Chemistry Laboratory if there are any questions. ICa Whole Blood 1.09(L) 1.15 - 1.33 mmol/L [facility] Comment: Note: ??Total bilirubin higher than 20 mg/dL may lead to falsely low ionized calcium. CL Whole Blood 106 98 - 107 mmol/L [facility] Gluc Whole Bld 100 65 - 199 mg/dL [facility] Comment:Diabetes: >=200 mg/d L plus symptoms. Lactate WB 1.3 0.5 - 2.2 mmol/L [facility] Blood 02/17/2024 8:07 AM EDT 02/17/2024 8:07 AM EDT Hayder Graham MD CHEMISTRY ORDERABLE S [facility] [place] [address] * POCT Glucose (02/17/2024 6:38 AM EDT) POC Glucose 98 65 - 199 mg/dL [facility] Comment: Supplemental ranges: <140 mg/dL before meals <180 mg/dL all other times of the day Blood 02/17/2024 6:38 AM EDT 02/17/2024 6:38 AM EDT Hayder Graham MD POINT OF CARE TEST ORDERABLES Performing Organization Address [facility]/State/ZIP Co de Phone Number [facility] [place] [address] * Transesophageal Echo/OR (02/17/2024 6:33 AM EDT) [...] transesophageal echocardiogram was performed in the [facility] formediate pre-operative and post-operative evaluation of cardiac function [...] RDR/RSLT documented in this encounter Visit Diagnoses Not on filedocumented in this encounter Admitting Diagnoses Diagnosis Aortic stenosis Aortic valve disorders documented in this encounter Administered Medications Inactive Administered Medications - up to 3 most recent administrations Medication Order MAR Action Action Date Dose Rate Site acetaminophen (Tylenol) tablet 975 mg 975 mg, [...] Given 02/23/2024 5:01 PM EDT 975 mg apixaban (Eliquis) tablet 5 mg 5 [...] Given 02/23/2024 9:10 AM EDT 81 mg atorvastatin (Lipitor) tablet 10 mg 10 [...] Given 02/23/2024 9:08 AM EDT 1 drop calcium chloride 10% (100 mg/mL) injection PRN, Starting on Sat02/17/24 at 0740, Until Sat02/17/24 at 1257, Intra-Operative (Intra-Procedure), Routine Given 02/17/2024 7:40 AM EDT 1 g cardioplegic solution ([place] Formula) 31 meq/1052.8 mL (potassium) solution PRN, Starting on Sat02/17/24 at 0740, Until Sat02/17/24 at 1257, Intra-Operative (Intra-Procedure) Given 02/17/2024 9:35 AM EDT 1,000 mLs Given 02/17/2024 7:40 AM EDT 1,000 mLs dorzolamide (Trusopt) 2 % ophthalmic solution 1 drop 1 drop, Both Eyes, 3 TIMES DAILY, First dose on Sat02/18/24 at 0930, Until Discontinued, Routine Given 02/24/2024 8:36 AM EDT 1 drop Given 02/23/2024 9:18 PM EDT 1 drop Given 02/23/2024 3:00 PM EDT 1 drop gelatin adsorbable 100 (Gelfoam) sponge PRN, Starting on Sat02/17/24 at 0938, Until Sat02/17/24 at 1257, Intra-Operative (Intra-Procedure), Routine Given 02/17/2024 9:38 AM EDT 1 each 19- Surgical Site Given 02/17/2024 9:37 AM EDT 1 each 19 - Surgical Site heparin (porcine) (1,000 units/mL) injection PRN, Starting on Sat02/17/24 at 0740, Until Sat02/17/24 at 1257, Intra-Operative (Intra-Procedure), Routine Given 02/17/2024 9:42 AM EDT 5,000 Units Given 02/17/2024 7:40 AM EDT 5,000 Units HYDROmorphone (Dilaudid) tablet 2-6 mg 2-6 mg, [...] EDT 1 patch 05- Back Upper (Left) mannitoL (Osmitrol) 20 % infusion CONTINUOUS PRN, Starting on Sat02/17/24 at 0740, Until Sat02/17/24 at 1255, Intra-Operative (Intra-Procedure) New Bag 02/17/2024 7:40 AM EDT 25 g metoclopramide (Reglan) (5 mg/mL) injection 10 mg [...] Given 02/23/2024 9:11 AM EDT 100 mg pantoprazole EC (Protonix) tablet 40 mg 40 mg, Oral, DAILY, First dose on Sat02/17/24 at 1400, Until Discontinued, DO NOT CRUSH OR OPEN If unable to take PO, may give IV, Routine Given 02/24/2024 8:35 AM EDT 40 mg Given 02/23/2024 9:07 AM EDT 40 mg Given 02/22/2024 8:21 AM EDT 40 mg senna-docusate (Pericolace) 8.6-50 mg per tablet 2 tablet 2 tablet, Oral, DAILY, First dose on Sat02/18/24 at 2100, Until Discontinued, Post-op day 1, Routine Given 02/20/2024 9:00 PM EDT 2 tablets Given 02/19/2024 9:00 PM EDT 2 tablets Given 02/18/2024 9:00 PM EDT 2 tablets sodium bicarbonate 8.4 % (1 meq/ml) IV solution PRN, Starting on Sat02/17/24 at 0942, Until Sat02/17/24 at 1257, Intra-Operative (Intra-Procedure), Routine Given 02/17/2024 11:12 AM EDT 25 mEq Given 02/17/2024 9:42 AM EDT 50 mEq sodium chloride 0.9 % (flush) (BD PosiFlush Normal Saline 0.9) flush 5 mL 5 mL, Intravenous, EVERY 8 HOURS, First dose on Sat02/18/24 at 0930, Until Discontinued, Routine Given 02/23/2024 11:25 PM EDT 5 mLs Given 02/23/2024 5:01 PM EDT 5 mLs Given 02/23/2024 9:08 AM EDT 5 mLs tamsulosin (Flomax) capsule 0.4 mg 0.4 mg, Oral, DAILY, First dose on Sat02/18/24 at 0930, Until Discontinued, DO NOT CRUSH OR CHEW, Routine Given 02/24/2024 8:36 AM EDT 0.4 mg Given 02/23/2024 9:07 AM EDT 0.4 mg Given 02/22/2024 8:21 AM EDT 0.4 mg thrombin (Bovine) (Thrombinar) kit PRN, Starting on Sat02/17/24 at 0938, Until Sat02/17/24 at 1257, Intra-Operative (Intra-Procedure) Given 02/17/2024 9:38 AM EDT 20,000 Units 19- Surgical Site Given 02/17/2024 9:37 AM EDT 20,000 Units 19- Surgical Site timoloL (Timoptic) 0.5 % ophthalmic solution 1 drop 1 drop, Both Eyes, DAILY, First dose on Sat02/18/24 at 0930, Until Discontinued, Routine Given 02/24/2024 8:39 AM EDT 1 drop Given 02/23/2024 9:08 AM EDT 1 drop Given 02/22/2024 8:23 AM EDT 1 drop vancomycin (Vancocin) injection PRN, Starting on Sat02/17/24 at 0908, Until Sat02/17/24 at 1257, Intra-Operative (Intra-Procedure), Routine Given 02/17/2024 9:08 AM EDT 1 g 19- Surgical Site verapamiL (Isoptin) (2.5 mg/mL) injection PRN, Starting on Sat02/17/24 at 0908, Until Sat02/17/24 at 1257, Administer over 2 Minutes, Intra-Operative (Intra-Procedure) Given 02/17/2024 9:08 AM EDT 5 mg 19- Surgical Site documented in this encounter Active and Recently [...] Mishel Merrill RN)2324 (Given - Provider: Otis Crook, COLBY) 0430 (Given - Provider: Otis Crook RN) apixaban (Eliquis) tablet 5 mg 5 mg, Oral, 2 TIMES DAILY, First dose on Sat02/21/24 at 1015, Until Discontinued, Anticoagulant, Routine, apixaban (Eliquis) Indication: Non-Valvular Atrial Fibrillation 08 (Given - Provider: Reilly Vincent RN)2056 (Given - Provider: Polo Britton RN) 09 (Given - Provider: Mishel Merrill RN)2114 (Given - Provider: Otis Crook RN) 0836 (Given - Provider: Jazlyn Maldonado RN) aspirin chewable tablet 81 mg 81 mg, Oral, DAILY, First dose on Sat02/23/24 at 0945, Until Discontinued, Routine 0910 (Given - Provider: Mishel Merrill RN) 0835 (Given - Provider: Jazlyn Maldonado RN) aspirin EC tablet 325 mg (CANCELED) 325 mg, Oral, DAILY, First dose on Sat02/18/24 at 0915, Until Discontinued, Routine 0821 (Given - Provider: Reilly Vincent RN) atorvastatin (Lipitor) tablet 10 mg 10 mg, Oral, DAILY, First dose on Sat02/17/24 at 1400, Until Discontinued, Routine 0821 (Given - Provider: Reilly Vincent RN) 09 (Given - Provider: Mishel Merrill RN) 0836 (Given - Provider: Jazlyn Maldonado RN) brimonidine (Alphagan) 0.2 % ophthalmic solution 1 drop 1 drop, Both Eyes, 2 TIMES DAILY, First dose on Sat02/18/24 at 0930, Until Discontinued, Routine 0824 (Given - Provider: Reilly Vincent RN)2056 (Given - Provider: Polo Britton RN) 0908 (Given - Provider: Mishel Merrill, COLBY)211 (Given - Provider: Otis Crook, COLBY) 0843 (Given - Provider: Jazlyn Maldonado, COLBY) dorzolamide (Trusopt) 2 % ophthalmic solution 1 drop 1 drop, Both Eyes, 3 TIMES DAILY, First dose on Sat02/18/24 at 0930, Until Discontinued, Routine 0824 (Given - Provider: Reilly Vincent RN)1408 (Given - Provider: Ingrid Menjivar RN)2056 (Given - Provider: Polo Britton RN) 09 (Given - Provider: Mishel Merrill, COLBY)1500 (Given - Provider: Mishel Merrill RN)2117 (Given - Provider: Otis Crook, COLBY) 0836 [...] RN) 09 (Patch Applied - Provider: Mishel Merrill, COLBY)210 (Patch Removed - Provider: Otis Crook, COLBY) 0836 (Not Given - Provider: Jazlyn Maldonado RN - Reason: Patient/family refused) metoprolol tartrate (Lopressor) tablet 100 mg 100 mg, Oral, EVERY 12 HOURS SCHEDULED (2 times per day), First dose (after last modification) on Sat02/23/24 at 0945, Until Discontinued, Hold for HR<60 and or SBP<90, Routine 09 (Given - Provider: Mishel Merrill RN)2114 (Given - Provider: Otis Crook, COLBY) 0835 (Given - Provider: Jazlyn Maldonado, COLBY) metoproloL tartrate (Lopressor) tablet 25 mg (CANCELED) 25 mg, Oral, EVERY 8 HOURS SCHEDULED, First dose (after last modification) on Sat02/21/24 at 1400, Until Discontinued, Hold for HR<60 and or SBP<90, Routine 0625 (Given - Provider: Polo Britton RN) metoproloL tartrate (Lopressor) tablet 25 mg (COMPLETED) 25 mg, Oral, ONCE, 1 dose, On 02/22/24 at 1000, Routine 1002 (Given - Provider: Ingrid Menjivar, COLBY) metoprolol tartrate (Lopressor) tablet 50 mg (CANCELED) [...] to take PO, may give IV, Routine 0821 (Given - Provider: Reilly Vincent RN) 0907 (Given - Provider: Mishel Merrill, COLBY) 0835 (Given - Provider: Jazlyn Maldonado, COLBY) potassium chloride 10 mEq in sterile water 100 mL infusion (COMPLETED) 10 mEq, Intravenous, EVERY 2 HOURS, 2 doses, First dose on 02/22/24 at 0730, Last dose on 02/22/24 at 0930, Administer over 60 Minutes, Doses of 20 mEq or greater require a Central Line Warning Vesicant/Irritant Medication 0822 (New Bag - Provider: Reilly Vincent RN)1000 (Stopped - Provider: Ingrid Menjivar, COLBY)1001 (New Bag - Provider: Ingrid Menjivar, COLBY)1201 (Stopped - Provider: Reilly Vincent RN) senna-docusate [...] Polo Britton RN)0930 (Given - Provider: Reilly Vincent, COLBY)1708 (Given - Provider: Ingrid Menjivar RN) 0130 (Given - Provider: Polo Britton RN)0908 (Given - Provider: Mishel Merrill, COLBY)1701 (Given - Provider: Mishel Merrill, RN)2325 (Given - Provider: Otis Crook RN) 0930 [...] RN) 0908 (Given - Provider: Mishel Merrill, COLBY) 0839 (Given - Provider: Jazlyn Maldonado, COLBY) Continuous Medication Order 02/22/2024 02/23/2024 02/24/2024 dextrose 5% and sodium chloride 0.45% infusion (CANCELED) 50 mL/hr, Intravenous, CONTINUOUS, Starting on Sat02/21/24 at 1015, Until Sat02/23/24 at 0847 0128 (New Bag - Provider: Polo Britton RN)1830 (New Bag - Provider: Reilly Vincent RN) 0900 (Stopped - Provider: Mishel Merrill RN) PRN Medication Order 02/22/2024 02/23/2024 02/24/2024 [...] 50ml NS. 0121 (Given - Provider: Polo Britton RN)0817 (Given - Provider: Reilly Vincent RN)1409 (Given - Provider: Ingrid Menjivar RN)2101 (Given - Provider: Polo Britton RN) Linked Groups Order Group 1: acetaminophen [...] Routine documented in this encounter Care Teams Chief Executive Officer Relationship Specialty Start Date End Date Aparna Jordan APRN PCP - General Family Medicine 10/21/23 documented as of this encounter
--- OUTSIDE RECORDS SUMMARY | 2024-05-06 08:36 | XMS_ITS | Encounter Summary ---
Author Organization [facility] Address [facility] [place] [address] Care Team Providers Care Lead Technical Writer Name Role Phone Vanessa Christian MAURI Primary Care Provider [phone] Encounter Details Date Type Department Care Team (Latest Contact Info) Description 01/09/2024 3:02 PM EDT - 01/09/2024 11:59 PM EDT Hospital Encounter XRay at [address] [place] [address] Zak Farmer MD [facility] [place] [address] Nonrheumatic aortic valve stenosis Discharge Disposition: Home Social History Tobacco Use Types Packs/Day Years Used Date Smoking Tobacco: Former Cigarettes Smokeless Tobacco: Never Comments:Quit 15 + years ago Alcohol Use Standard Drinks/Week Comments Yes 0 (1 standard drink = 0.6 oz pur e alcohol) rare [facility] Inpatient Questions Answer Date Recorded Prevent Contact with Others Not on file 01/2024 Feels Threatened by Someone Not on file 01/2024 Feels Unsafe at Home or Work/School no 01/09/2024 Physical Signs of Abuse Present no 01/09/2024 Sex and Gender Information Value Date Recorded [...] drop into both eyes daily. lisinopriL (Zestril) 5 mg tablet Take 5 mg by mouth daily. 02/24/2024 chlorhexidine (HIBICLENS) 4 % Liquid Apply topically daily as needed. Shower from head to toe with Chlorhexidine the night before surgery . 01/09/2024 02/24/2024 mupirocin (Bactroban) 2 % Ointment Apply 1 each topically 2 times daily. Apply a small amount to each nostril twice daily. Begin 5 days prior to the day of surgery. 22 g 01/09/2024 02/24/2024 documented as of this encounter Plan of Treatment Upcoming Encounters Date Type Department Care Team (Late st Contact Info) Description 05/27/2024 11:00 AM EDT Office Visit Cardiology at [address] [place] [address] Neftali Ernandez MD [facility] [place] [address] documented as of this encounter Procedures Procedure Name Priority Date/Time Associated Diagnosis Comments XR CHEST PA AND LATERAL Routine 01/09/2024 3:09 PM EDT Nonrheumatic aortic valve stenosis documented in this encounter Results * XR Chest PA & Lateral (Generic) (01/09/2024 3:09 PM EDT) Anatomical Region Laterality Modality Chest N/A Digital Radiogra phy Impressions 01/09/2024 3:11 PM EDT No active cardiopulmonary disease. Thank you for letting us participate in the care of this patient. ??If you are a health care provider and have any questions regarding this report, please contact the number below. ??For patients who have questions please contact the health live in caregiver that requested your imaging first. ? Narrative 01/09/2024 3:11 PM EDT EXAMINATION: XR CHEST PA AND LATERAL (GENERIC) CLINICAL HISTORY: aortic stenosis I35.0, Nonrheumatic aortic (valve) stenosis TECHNIQUE: PA and lateral views of the chest COMPARISON: None FINDINGS: The lungs are clear and well-expanded. Heart and pulmonary vasculature are normal. No significant osseous finding. Procedure Note Toby Dave MD - 01/09/2024 EXAMINATION: XR CHEST PA AND LATERAL (GENERIC) CLINICAL HISTORY: aortic stenosis I35.0, Nonrheumatic aortic (valve) stenosis TECHNIQUE: PA and lateral views of the chest COMPARISON: None FINDINGS: The lungs are clear and well-expanded. Heart and pulmonary vasculatureare normal. No significant osseous finding. IMPRESSION No active cardiopulmonary disease. Thank you for letting us participate in the care of this patient. If youare a health care provider and have any questions regarding this report,please contact the number below. For patients who have questions please contactthe health live in caregiver that requested your imaging first. Zak Farmer MD IMG DX ORDERABLES documented in this encounter Visit Diagnoses Diagnosis Nonrheumatic aortic valve stenosis Aortic valve disorders documented in this encounter Care Teams Lead Technical Writer Relationship Specialty Start Date End Date Vanessa Christian APRN PCP - General Family Medicine 10/21/23 documented as of this encounter
--- OUTSIDE RECORDS SUMMARY | 2024-05-06 08:36 | XMS_ITS | Encounter Summary ---
Author Organization [facility] [place] [address] Care Team Providers Care Thread Winder Name Role Phone Vanessa Christian APRN Primary Care Provider [phone] Encounter Details Date Type Department Care Team (Latest Contact Info) Description 01/09/2024 Travel Social History Tobacco Use Types Packs/Day Years Used Date Smoking Tobacco: Former Cigarettes Smokeless Tobacco: Never Comments:Quit 15 + years ago Alcohol Use Standard Drinks/Week Comments Yes 0 (1 standard drink = 0.6 oz pur e alcohol) rare [facility] Inpatient Questions Answer Date Recorded Prevent Contact [...] AM EDT Office Visit Cardiology at [address] [place] [id number] Neftali Ernandez MD [facility] [place] [address] documented as of this encounter Visit Diagnoses Not on filedocumented in this encounter Care Teams Thread Winder Relationship Specialty Start Date End Date Vanessa Christian APRN PCP - General Family Medicine 10/21/23 documented as of this encounter
--- OUTSIDE RECORDS SUMMARY | 2024-05-06 08:36 | XMS_ITS | Encounter Summary ---
Author Organization [facility] [place] [address] Care Team Providers Care Acute Coordinator Name Role Phone Vanessa Christian APRN Primary Care Provider [phone] Encounter Details Date Type Department Care Team (Late st Contact Info) Description 12/26/2023 Notes Only Cardiology at [address] [address] Neftali Ernandez MD [facility] [place] [address] Social History Tobacco Use Types Packs/Day Years Used Date Smoking Tobacco: Former Cigarettes Smokeless Tobacco: Never Comments:Quit 15 + years ago Sex and Gender Information Value Date Recorded Sex Assigned at Not on file Gender Identity Not on file Sexual Orientation Not on file documented as of this encounter Progress Notes * Neftali Ernandez MD - 12/26/2023 1:37 PM EDT Echocardiogram images reviewed from [facility]. Indeed, the aortic valve appears severely stenotic. Cannotrule out bicuspid valve documented in this encounter Plan of Treatment Upcoming Encounters Date Type Department Care Team (Late st Contact Info) Description 05/27/2024 11:00 AM EDT Office Visit Cardiology at [address] [address] Neftali Ernandez MD [facility] [place] [address] documented as of this encounter Visit Diagnoses Not on filedocumented in this encounter Care Teams Acute Coordinator Relationship Specialty Start Date End Date Vanessa Christian APRN PCP - General Family Medicine 10/21/23 documented as of this encounter
--- OUTSIDE RECORDS SUMMARY | 2024-05-06 08:36 | XMS_ITS | Continuity of Care Document ---
Author Organization [facility] Address [address] [place] [address] Care Team Providers Care Electric Range Assembler Name Role Phone Sachin Sainz Primary Care Physician Encounter [facility] Date(s): 12/05/22 - 12/05/[address] [address] Discharge Disposition: Home or Self Care Attending Physician: Sachin Sainz DO Admitting Physician: Sachin Sainz DO Referring Physician: Sachin Sainz DO Allergies, Adverse Reactions, Alerts No Known Medication Allergies Assessment and Plan Future Appointments Immunizations Given and Recorded Vaccine Date Status Refusal Reason tetanus-diphth toxoids (Td) adult/adol 11/21/22 Gi roxana SARS-COV-2 (COVID-19) vaccine, unspecifi 1 10/07/21 Recorded SARS-CoV-2 (COVID-19) mRNA-1273 vaccine 02/21/21 R ecorded SARS-CoV-2 (COVID-19) mRNA-1273 vaccine 01/24/21 R ecorded influenza virus vaccine, live 08/07/18 Recorded tetanus/diphth/pertuss (Tdap) adult/adol 08/26/13 Recorded 1Result Comment: HAS THE COVID BOOSTER(Moderna) AND DOES NOT KNOW THE EXACT DATE.; Last modified by [email or web address] 11-09-2021, 15:35 Medications atorvastatin 10 mg oral tablet 1 tab, Oral, Daily, # 90 tab, 0 Refill(s), Pharmacy: [id number] Start Date: 11/14/22 Status: Ordered brimonidine 0.2% ophthalmic solution 1 drops, Eye-Both, BID Start Date: 05/28/22 Status: Ordered dorzolamide 2% ophthalmic solution 1 drops, Eye-Both, BID Start Date: 05/28/22 Status: Ordered lisinopril 10 mg oral tablet 1 tab, Oral, Daily, # 90 tab, 0 Refill(s), Pharmacy: [facility] #[id number] Start Date: 11/14/22 Status: Ordered SF 5000 Plus 1.1% topical cream See Instructions, Use as directed. Start Date: 05/28/22 Status: Ordered tamsulosin 0.4 mg oral capsule 0.4 mg = 1 cap, Oral, Daily, # 30 cap, 0 Refill(s), Pharmacy: [facility] #[id number] Start Date: 11/20/22 Status: Ordered timolol maleate 0.5% ophthalmic solution 1 drops, Eye-Both, BID Start Date: 05/28/22 Status: Ordered Problem List Condition Confirmation Course Effective Dates Status H ealth Status Informant Aortic stenosis, non-rheumatic Confirmed Active Gastroesophageal reflux disease Confirmed Active Glaucoma Confirmed Active Left hip pain Confirmed Active Hyperlipidemia Confirmed Active Hypertensive disorder Confirmed Active Unilateral inguinal hernia Confirmed Active Annual physical exam Confirmed Active Social History Social History Type Response Tobacco Former tobacco user Tobacco Use:. Sex Male Patient Care team information Care Team Personnel Name: Sachin Sainz DO Position: Physician Member Role: Primary Care Physician Address: Address: [place] [facility] [id number] [place] [address]
--- OUTSIDE RECORDS SUMMARY | 2024-05-06 08:36 | XMS_ITS | Encounter Summary ---
Author Organization [facility] [place] [address] Care Team Providers Care Tool Grinder Operator Name Role Phone Vanessa Christian MAURI Primary Care Provider [phone] Reason for Visit * Auth/Cert (Routine) Specialty Diagnoses / Procedures Referred By Contac t Referred To Contact Diagnoses Screening for cardiovascular condition Aortic valve stenosis, etiology of cardiac valve disease unspecified Screening for cardiovascular condition [Z13.6] Aortic valve stenosis, etiology of cardiac valve disease unspecified [I35.0] Procedures PRG CATH PLMT CORONARY ART W/INJ FOR ANGIO W/R HEART CATH IMG S&I CARDIAC CATHETERIZATION CORONARY ANGIOGRAPHY; W RHC (WRVU 5.9) Rima Dickinson MD [facility] [place] [place] [address] [facility] Referral ID Status Reason Start Date Expiration Date Visits Re quested Visits Authorized [id number] 1 1 Encounter Details Date Type Department Care Team (Late st Contact Info) Description 02/03/2024 10:00 AM EDT - 02/03/2024 11:00 AM EDT [place] [address] Saira Lua MD [facility] [place] [place] [address] CARDIAC CATHETERIZATION Social History Tobacco Use Types Packs/Day Years Used Date Smoking Tobacco: Former Cigarettes Smokeless Tobacco: Never Comments:Quit 15 + years ago Alcohol Use Standard Drinks/Week Comments Yes 0 (1 standard drink = 0.6 oz pur e alcohol) rare DH IPV Inpatient Questions Answer Date Recorded Does Anyone Try to Keep You From Having Contact with Others or Doing Things Outside Your Home? no 02/03/2024 Feels Threatened by Someone no 01/06 Feels Unsafe at Home or Work/School no 02/03/2024 Physical Signs of Abuse Present no 02/03/2024 Sex and Gender Information Value Date Recorded Sex Assigned at Not on file Gender Identity Not on file Sexual Orientation Not on file documented as of this encounter Last Filed Vital Signs Vital Sign Reading Time Taken Comments Blood Pressure 137/81 02/03/2024 10:30 AM EDT Pulse 60 02/03/2024 10:28 AM EDT Temperature 36.8 ??C (98.2 ??F) 02/03/2024 10:28 AM E DT Respiratory Rate 18 02/03/2024 10:28 AM EDT Oxygen Saturation 100% 02/03/2024 10:28 AM EDT Inhaled Oxygen Concentration - - Weight 66.5 kg (146 lb 8 oz) 02/03/2024 10:28 AM EDT Height 167.6 cm (5' 6) 02/03/2024 10:28 AM EDT Body Mass Index 23.65 02/03/2024 10:28 AM EDT documented in this encounter Discharge Instructions * Patient Instructions* Clarence Lane MD - 02/03/2024 12:50 PM EDT Restrictions (first 48 Hours) NO Driving Do not lift objects >20 Lbs Restrictions (First 5 days) Do not lift objects >40 lbs Follow-up Visits Follow up with your arboriculture instructor in 2-4 weeks Access Site 'Black and Blue' and tenderness is expected during the first week Call if you noted a mass (lump) greater than the size of a ellis Call Office with any Questions and if you have any of the following Clarence Lane M.D Interventional Harness Inspector Tack Cutter #: [phone] * Attachments The following attachments cannot be sent through Care Everywhere. * CAD (Coronary Artery Disease): General Info (Beninese) * Coronary Angiogram: Post-op (Beninese) documented in this encounter Medications at Time [...] Take 1 tablet by mouth daily. 01/29/2024 lisinopriL (Zestril) 5 mg tablet Take 5 [...] 01/09/2024 02/24/2024 documented as of this encounter H&P Notes * Clarence Lane MD - 02/03/2024 11:48 AM EDT [facility] Interventional Cardiology Adult Pre-Procedure H&P Update: Cardiac Catheterization Karlos Anthony [id number] 1960 Chief Complaint: Aortic stenosis HPI: Mr. Santa is a 63-year-old man with [...] a 4 cm aorta on that study. He is here for pre-op coronary angiogram. There have not been any changes in health status since last seen in clinic. No fevers, no chills, no bleeding. Please see recent outpatient clinic note for comprehensive physical and history documentation. Planned Procedure: Cors Cardiac History: See above Other Pertinent Medical History: SOCIAL Hx: Outpatient Medications Marked as Taking for the 02/03/24 encounter (Hospital Encounter) Medication Sig Dispense Refill dorzolamide (Trusopt) 2 % Drops 3 times daily. mupirocin (Bactroban) 2 % Ointment Apply 1 each topically 2 times daily. Apply a small amount to each nostril twice daily. Begin 5 days prior to the day of surgery. 22 g 0 aspirin EC 81 mg EC (DR) tablet Take 81 mg by mouth daily. lisinopriL (Zestril) 5 mg tablet Take 5 mg by mouth daily. multivitamin (THERAGRAN) Tablet Take 1 tablet by mouth daily. atorvastatin (Lipitor) 10 mg tablet Take 10 mg by mouth daily. brimonidine (Alphagan) 0.2 % Drops Place 1 drop into both eyes 2 times daily. tamsulosin (Flomax) 0.4 mg capsule Take 0.4 mg by mouth daily. timoloL (Timoptic) 0.5 % Drops Place 1 drop into both eyes daily. PHYSICAL: BP 137/81 Pulse 60 Temp 36.8 ??C (98.2 ??F) (Temporal) Resp 18 Ht 167.6 cm (5' 6) Wt 66.5 kg (146 lb 8 oz) SpO2 100% BMI 23.65 kg/m?? Gen: Alert, NAD CV: RRR, no M/R/G appreciated, normal S1/S2 Resp: CTAB, no W/R/R Abd: Soft, NT/ND, +BS Ext: No edema, clubbing, or cyanosis. Warm and well perfused. Neuro: CN grossly intact, moving all extremities Psych: Appropriate affect Pulses: grossly intact Mallampati: 2 ASA Class: 3 Sedation Plan: Moderate Sedation, IV conscious sedation with fentanyl and midazolam. Labs reviewed and notable for: Lab Results Component Value Date WBC 6.2 01/09/2024 HGB 16.1 01/09/2024 HCT 46.9 01/09/2024 MCV 84.8 01/09/2024 PLATELET 187 01/09/2024 Lab Results Component Value Date CREATININE 0.94 01/09/2024 BUN 15 01/09/2024 NA 137 01/09/2024 K 4.5 01/09/2024 CL 103 01/09/2024 CO2 27 01/09/2024 Lab Results Component Value Date INR 0.9 01/09/2024 Assessment/Plan: Mr. Santa is a 63-year-old man with [...] a 4 cm aorta on that study. He is here for pre-op coronary angiogram. - Proceed as planned - Consent signed - No apparent contraindication to DAPT, patient denies upcoming or planned procedures/operations, and denies ongoing or recent bleeding events - FULL code -12-Lead ECG reviewed - Labs Reviewed: I have personally discussed the procedure, including benefits and risks, with the patient who agrees to proceed. The indications for the catheterization, the expected benefits, and the possible riskswere reviewed in detail with the patient. The potential for , heart attack, stroke, kidney failure, bleeding, allergic reaction, vascular complications and infection as well as other potential complications were reviewed. The possibility of stenting and other percutaneous interventions, with associated risk, was reviewed. The potential need for emergent coronary artery bypass surgery was reviewed. Alternatives were discussed and the patient's questions were answered in full. Following thisdiscussion, the patient consented to the procedure and signed a form attesting to this, which is inthe chart Clarence Lane MD Interventional Harness Inspector 02/03/24 11:48 AM documented in this encounter Miscellaneous Notes * Brief Op Note - Clarence Lane MD - 02/03/2024 12:51 PM EDT Preliminary Cardiac Catheterization Procedure Note: Patient Name: Karlos Anthony : [id number] MR#: [id number] Case Date: 02/03/2024 Tack Cutter: Surgeon(s) and Role: * Saira Lua MD - Primary * Clarence Lane MD - Fellow - Assisting Preoperative diagnosis: Screening for cardiovascular condition [Z13.6] Aortic valve stenosis, etiology of cardiac valve disease unspecified [I35.0] Postoperative diagnosis: Severe Procedure(s) performed: Cors Access: Right radial A time-out was conducted prior to the start of the procedure to verify the correct patient and procedure, procedure location, and all relevant critical information. Preliminary findings: Severe 70% stenosis of the ostial mid LAD with severe pressure dampening and ventricularization with a 6F diagnostic catheter The proximal LAD has 50% stenosis and LCX has mild diffuse CAD The RCA has proximal 70% stenosis with severe pressure dampening and ventricularization with a 6F diagnostic catheter Recommend AVR + CABG The patient tolerated the procedures smoothly and was transferred from the cardiac catheterization lab to the next level of care in good condition. No evident early complications. Full report to follow. Clarence Lane MD documented in this encounter Plan of Treatment Upcoming Encounters Date Type Department Care Team (Late st Contact Info) Description 05/27/2024 11:00 AM EDT Office Visit Cardiology at [address] [phone] Neftali Ernandez MD [facility] [place] [place] [address] Scheduled Orders Name Type Priority Associated Diagnoses Order Schedule Transesophageal Echo/OR Echocardiography Routine Nonrheumatic aortic valve stenosis One Time for 1 Occurrences starting 02/03/2024 until 02/03/2024 documented as of this encounter Procedures Procedure Name Priority Date/Time Associated Diagnosis Comments CARDIAC CATHETERIZATION Routine 02/03/2024 12:54 PM EDT Screening for cardiovascular condition Aortic valve stenosis, etiology of cardiac valve disease unspecified EKG 12-LEAD Routine 02/03/2024 10:33 AM EDT Screening for cardiovascular condition Aortic valve stenosis, etiology of cardiac valve disease unspecified documented in this encounter Results * CARDIAC CATHETERIZATION (02/03/2024 12:54 PM EDT) Anatomical Region Laterality Modality Other Narrative 02/12/2024 3:47 PM EDT ?[facility] ? Cardiac Catheterization/Intervention Report ? Patient Name: Patenaude, Karlos ? Procedure Date: 02/03/2024 ? A #: [id number] ? Primary Physician: Saira Lua ? Case #: [id number] ? File Name: [id number] ? Catheterization Order Number: [id number] ? [facility] ? Final Report [place], [place] ? Patient Name: ? Karlos Patenaude ? ID#: ?[id number] ? : ?1960 ? Procedure Date: ? February 03, 2024 ? Case #: ? [id number] ? Room: ? 5 ? Case Physician: ? Emad Chanell, M.D. ? Start: ?12:29 ?Fellow: ? Clarence N Domingo M.D. ? Admission: ??02/03/2024 ? Referring Physician: ??Zak N Tom Farmer.D. ? Procedures: ?* Coronary Angiography ? History ?Karlos Anthony is a 63 year old man. He has hypertension. The patient's ?smoking status is Never. He also has hypercholesterolemia managed with ?lipid therapy. Prior to the initiation of this procedure, the patient was ?designated as ASA Class III. The [facility] clinical frailty scale is 3: ?Managing Well. ? Diagnostic Tests: ?Electrocardiography: ? EKG was assessed by ECG. EKG was Normal. ? Indications for Diagnostic Cath: ?The priority of the diagnostic procedure was Elective. Chest pain symptom ?assessment was: Atypical Angina. One of the indications for cath is ?valvular heart disease. The patient has Severe aortic stenosis. ? Technique: ?A 6 SLFr sheath was inserted in the right radial artery utilizing the ?Seldinger technique. The left coronary artery was injected utilizing a ?6Fr JL 3.5 catheter. A 6Fr JR 4 catheter was used to inject the right ?coronary artery. Left ventricular pressure was performed utilizing a 6Fr ?JR 4 catheter. The Left Main was injected utilizing a 5Fr JL 3.5 ?catheter. 5,000 units of heparin were administered. A total of 100cc of ?Omnipaque were opened, 72cc of Omnipaque were administered and 28cc of ?Omnipaque were wasted. Radiation: Fluoro time was 4.0 minutes, dose area ?product was 14.00 Gy/cm2 and air kerma was 265 mGY. See the case log for ?additional details. ?The patient received the following medications prior to and during the ?procedure: ? Low Molecular Weight Heparin and Unfractionated Heparin. ? Hemodynamics: ?Left Heart Pressures ? Resting: ? Syst Diast ? EDP ?a ?v ? m ?Ao 132 ?? 67 ?93 ? Coronary Angiography: ?Dominance: Right ?Left Main ? There was a 70% single discrete stenosis of the mid segment of the ? left main artery. ??The left main was large. ?Left Anterior Descending ? There was a 50% long segmental stenosis of the proximal segment of ? the left anterior descending artery (LAD). ??The LAD was large. ?Left Circumflex ? There was mild diffuse (<=25% stenosis) disease of the entire vessel ? segment of the left circumflex artery (LCX). ?Right Coronary Artery ? There was a 70% single discrete stenosis of the proximal segment of ? the right coronary artery (RCA). ??The RCA was large. ? Vascular Access: ?Vascular Access Management: ? Mechanical Compression of the right radial artery access site was ? performed. ? Conclusions: ?* Significant stenosis of the left main ?* Two vessel coronary artery disease (LAD and RCA) ? Complications/Events: ?The patient had no complications during this procedure. ? Post Procedure Fluid Recommendations: ?IV fluid at 200 mL/hr for 4 hours for a total of 800 mL. These ?recommendations are made at the time of the procedure. Patient and ?provider preferences or a changing clinical situation may require ?modification of this regimen. ? Recommendations: ?Based upon the results of these procedures, it was recommended that the ?patient be managed with medical therapy, be referred for coronary artery ?bypass surgery and have valvular intervention. ? Comments: ?1.Severe 70% stenosis of the ostial mid LAD with severe pressure ?dampening and ventricularization with a 6F diagnostic catheter ?2.The proximal LAD has 50% stenosis and LCX has mild diffuse CAD ?3.The RCA has proximal 70% stenosis with severe pressure dampening and ?ventricularization with a 6F diagnostic catheter ?4.Recommend AVR + CABG. ?The attending physician was present for the entire procedure. ?Dr. Saira Lua M.D. was present during the moderate sedation ?intraservice time as documented by the sedation nurse. ??Case time = 00:18. ?Dr. Saira Lua M.D. performed the coronary angiography. ? Saira Lua M.D. ? Electronically Signed by: Saira Lua M.D. ? Report Finalized: 02/12/2024 ??15:43 ? Procedure Note Saira Lua MD - 02/12/2024 [facility] Cardiac Catheterization/Intervention Report Patient Name: Karlos Anthony Procedure Date: 02/03/2024 A #: [id number] Primary Physician: Saira Lua Case #: [id number] File Name: [id number] Catheterization Order Number: [id number] [facility] FinalReport [place], [place] Patient Name: Karlos Anthony ID#:[id number] :1960 Procedure Date: February 03, 2024 Case #: [id number] Room: 5 Case Physician: Siara Lua M.D. Start: 12:29 Fellow: Clarence Lane M.D. Admission:02/03/2024 Referring Physician: Zak Farmer M.D. Procedures: * Coronary Angiography History Karlos Anthony is a 63 year old man. He has hypertension. Thepatient's smoking status is Never. He also has hypercholesterolemia managedwith lipid therapy. Prior to the initiation of this procedure, thepatient was designated as ASA Class III. The [facility] clinical frailty scale is 3: Managing Well. Diagnostic Tests: Electrocardiography: EKG was assessed by ECG. EKG was Normal. Indications for Diagnostic Cath: The priority of the diagnostic procedure was Elective. Chest painsymptom assessment was: Atypical Angina. One of the indications for cath is valvular heart disease. The patient has Severe aortic stenosis. Technique: A 6 SLFr sheath was inserted in the right radial artery utilizingthe Seldinger technique. The left coronary artery was injected utilizinga 6Fr JL 3.5 catheter. A 6Fr JR 4 catheter was used to inject theright coronary artery. Left ventricular pressure was performed utilizing a6Fr JR 4 catheter. The Left Main was injected utilizing a 5Fr JL 3.5 catheter. 5,000 units of heparin were administered. A total of 100ccof Omnipaque were opened, 72cc of Omnipaque were administered and 28ccof Omnipaque were wasted. Radiation: Fluoro time was 4.0 minutes, dosearea product was 14.00 Gy/cm2 and air kerma was 265 mGY. See the case logfor additional details. The patient received the following medications prior to and duringthe procedure: Low Molecular Weight Heparin and Unfractionated Heparin. Hemodynamics: Left Heart Pressures Resting: Syst Diast EDP a v m Ao 132 67 93 Coronary Angiography: Dominance: Right Left Main There was a 70% single discrete stenosis of the mid segment ofthe left main artery. The left main was large. Left Anterior Descending There was a 50% long segmental stenosis of the proximal segmentof the left anterior descending artery (LAD). The LAD was large. Left Circumflex There was mild diffuse (<=25% stenosis) disease of the entirevessel segment of the left circumflex artery (LCX). Right Coronary Artery There was a 70% single discrete stenosis of the proximalsegment of the right coronary artery (RCA). The RCA was large. Vascular Access: Vascular Access Management: Mechanical Compression of the right radial artery access sitewas performed. Conclusions: * Significant stenosis of the left main * Two vessel coronary artery disease (LAD and RCA) Complications/Events: The patient had no complications during this procedure. Post Procedure Fluid Recommendations: IV fluid at 200 mL/hr for 4 hours for a total of 800 mL. These recommendations are made at the time of the procedure. Patient and provider preferences or a changing clinical situation may require modification of this regimen. Recommendations: Based upon the results of these procedures, it was recommended thatthe patient be managed with medical therapy, be referred for coronaryartery bypass surgery and have valvular intervention. Comments: 1.Severe 70% stenosis of the ostial mid LAD with severe pressure dampening and ventricularization with a 6F diagnostic catheter 2.The proximal LAD has 50% stenosis and LCX has mild diffuse CAD 3.The RCA has proximal 70% stenosis with severe pressure dampeningand ventricularization with a 6F diagnostic catheter 4.Recommend AVR + CABG. The attending physician was present for the entire procedure. Dr. Saira Lua M.D. was present during the moderate sedation intraservice time as documented by the sedation nurse. Case time =00:18. Dr. Saira Lua M.D. performed the coronary angiography. Saira Lua M.D. Electronically Signed by: Saira Lua M.D. Report Finalized: 02/12/2024 15:43 Saira Lua MD CARDIAC CATH ORDERAB LES * EKG 12 Lead (02/03/2024 10:33 AM EDT) Ventricular rate 56 BPM MUSE SYSTEM Atrial Rate 56 BPM MUSE SYSTEM P-R Interval 196 ms MUSE SYSTEM QRS Duration 86 ms MUSE SYSTEM Q-T Interval 386 ms MUSE SYSTEM QTC Calculated (Bezet) 372 ms MUSE SYSTEM Calculated P Paterson 59 degrees MUSE SYSTEM Calculated R Paterson 34 degrees MUSE SYSTEM Calculated T Paterson 63 degrees MUSE SYSTEM INTERPRETATION Sinus bradycardia Otherwise normal ECG When compared with ECG of 21-OCT-2023 15:34, No significant change was found Confirmed by MD RENEE, PIPER ([id number]) on 02/03/2024 11:57:31 AM MUSE SYSTEM 02/03/2024 10:3 3 AM EDT 02/03/2024 11:57 AM EDT Rima Youngblood MD ECG ORDERABLES MUSE SYSTEM documented in this encounter Visit Diagnoses Diagnosis Screening for cardiovascular condition Screening for other and unspecified cardiovascular conditions Aortic valve stenosis, etiology of cardiac valve disease unspecified Nonrheumatic aortic valve stenosis Aortic valve disorders Screening for cardiovascular condition Screening for other and unspecified cardiovascular conditions Aortic valve stenosis, etiology of cardiac valve disease unspecified documented in this encounter Administered Medications Inactive Administered Medications - up to 3 most recent administrations Medication Order MAR Action Action Date Dose Rate Site fentaNYL (pf) (50 mcg/mL) multi-dose injection PRN, Starting on Sat02/03/24 at 1227, Until Sat02/03/24 at 1654, Intra-Operative (Intra-Procedure), Routine Given 02/03/2024 12:27 PM EDT 25 mcg heparin (porcine) (1,000 units/mL) injection PRN, Starting on Sat02/03/24 at 1232, Until Sat02/03/24 at 1654, Intra-Operative (Intra-Procedure), Routine Given 02/03/2024 12:32 PM EDT 5,000 Units iohexoL (Omnipaque) (350 mg/mL) solution PRN, Starting on Sat02/03/24 at 1247, Until Sat02/03/24 at 1654, Intra-Operative (Intra-Procedure), Routine Given 02/03/2024 12:47 PM EDT 72 mLs lidocaine (Xylocaine) 1% (10 mg/mL) injection 3 mg 3 mg (0.3 mL), Subcutaneous, ONCE PRN, 1 dose, Starting on Sat02/03/24 at 1021, Until Sat02/03/24 at 1654, with discomfort with PIV insertion, Cath (Day of Procedure), Routine midazolam (pf) (Versed) (1 mg/mL) multi-dose injection PRN, Starting on Sat02/03/24 at 1227, Until Sat02/03/24 at 1654, Intra-Operative (Intra-Procedure), Routine Given 02/03/2024 12:27 PM EDT 1 mg sodium chloride 0.9 % (flush) (BD PosiFlush Normal Saline 0.9) flush 5 mL 5 mL, Intravenous, EVERY 12 HOURS, First dose on Sat02/03/24 at 1045, Until Discontinued, Cath (Day of Procedure), Routine sodium chloride 0.9 % (flush) (BD PosiFlush Normal Saline 0.9) flush 5-20 mL 5-20 mL, Intravenous, EVERY 1 MIN PRN, Starting on Sat02/03/24 at 1021, Until Sat02/03/24 at 1654, flush, Flush pertains to all indwelling lines. Flush per protocol found in the job aid using the link provided on this medication record., Cath (Day of Procedure), Routine sodium chloride 0.9% infusion 200 mL/hr, Intravenous, CONTINUOUS, Starting on Sat02/03/24 at 1045, Until Sat02/03/24 at 1654, Cath (Day of Procedure) sodium chloride 0.9% infusion 200 mL/hr, Intravenous, CONTINUOUS, Starting on Sat02/03/24 at 1315, Until Sat02/03/24 at 1514, Recovery (Recovery-Hospital Unit) Continued Bag 02/03/2024 1:09 PM EDT 200 mL/hr 200 mL/hr verapamiL (Isoptin) (2.5 mg/mL) injection PRN, Starting on Sat02/03/24 at 1229, Until Sat02/03/24 at 1654, Administer over 2 Minutes, Intra-Operative (Intra-Procedure) Given 02/03/2024 12:29 PM EDT 5 mg documented in this encounter Active and Recently Administered Medications Times are shown in EDT. Scheduled Medication Order 02/01/2024 02/02/2024 02/03/2024 sodium chloride 0.9 % (flush) (BD PosiFlush Normal Saline 0.9) flush 5 mL 5 mL, Intravenous, EVERY 12 HOURS, First dose on Sat02/03/24 at 1045, Until Discontinued, Cath (Day of Procedure), Routine 1045 (Due) Continuous Medication Order 02/01/2024 02/02/2024 02/03/2024 sodium chloride 0.9% infusion 200 mL/hr, Intravenous, CONTINUOUS, Starting on Sat02/03/24 at 1045, Until Sat02/03/24 at 1654, Cath (Day of Procedure) 1045 (Due) sodium chloride 0.9% infusion 200 mL/hr, Intravenous, CONTINUOUS, Starting on Sat02/03/24 at 1315, Until Sat02/03/24 at 1514, Recovery (Recovery-Hospital Unit) 1309 (Continued Bag - Provider: Tiffanie Regan RN) PRN Medication Order 02/01/2024 02/02/2024 02/03/2024 atropine (0.1 mg/mL) injection 1 mg 1 mg, Intravenous, EVERY 5 MIN PRN, 2 doses, Starting on Sat02/03/24 at 1256, Until Sat02/03/24 at 1654, Other, vasovagal episode, Call interventional MD. , Cath (Recovery-Hospital Unit), Routine fentaNYL (PF) (50 mcg/mL) injection 25 mcg 25 mcg, Intravenous, EVERY 30 MIN PRN, Starting on Sat02/03/24 at 1256, Until Sat02/03/24 at 1555, Pain, sheath removal, Maximum of 4 doses while in Cath Recovery Unit, Cath (Recovery-Hospital Unit), Routine fentaNYL (pf) (50 mcg/mL) multi-dose injection PRN, Starting on Sat02/03/24 at 1227, Until Sat02/03/24 at 1654, Intra-Operative (Intra-Procedure), Routine 1227 (Given - Provid er: Rogerio Oliveros) heparin (porcine) (1,000 units/mL) injection PRN, Starting on Sat02/03/24 at 1232, Until Sat02/03/24 at 1654, Intra-Operative (Intra-Procedure), Routine 1232 (Given - Provid er: Rogerio Oliveros) iohexoL (Omnipaque) (350 mg/mL) solution PRN, Starting on Sat02/03/24 at 1247, Until Sat02/03/24 at 1654, Intra-Operative (Intra-Procedure), Routine 1247 (Given - Provid er: Saira Lua MD) lidocaine (Xylocaine) 1% (10 mg/mL) injection 3 mg 3 mg (0.3 mL), Subcutaneous, ONCE PRN, 1 dose, Starting on Sat02/03/24 at 1021, Until Sat02/03/24 at 1654, with discomfort with PIV insertion, Cath (Day of Procedure), Routine midazolam (pf) (Versed) (1 mg/mL) injection 1 mg 1 mg, Intravenous, EVERY 1 HOUR PRN, Starting on Sat02/03/24 at 1256, Until Sat02/03/24 at 1555, For sheath removal, Maximum of 2 doses while in Cath Recovery Unit, Cath (Recovery-Hospital Unit), Routine midazolam (pf) (Versed) (1 mg/mL) multi-dose injection PRN, Starting on Sat02/03/24 at 1227, Until Sat02/03/24 at 1654, Intra-Operative (Intra-Procedure), Routine 1227 (Given - Provid er: Rogerio Oliveros) sodium chloride 0.9 % (flush) (BD PosiFlush Normal Saline 0.9) flush 5-20 mL 5-20 mL, Intravenous, EVERY 1 MIN PRN, Starting on Sat02/03/24 at 1021, Until Sat02/03/24 at 1654, flush, Flush pertains to all indwelling lines. Flush per protocol found in the job aid using the link provided on this medication record., Cath (Day of Procedure), Routine verapamiL (Isoptin) (2.5 mg/mL) injection PRN, Starting on Sat02/03/24 at 1229, Until Sat02/03/24 at 1654, Administer over 2 Minutes, Intra-Operative (Intra-Procedure) 1229 (Given - Provid er: Clarence Lane MD) documented in this encounter Care Teams Tool Grinder Operator Relationship Specialty Start Date End Date Vanessa Christian, MAURI PCP - General Family Medicine 10/21/23 documented as of this encounter
--- OUTSIDE RECORDS SUMMARY | 2024-05-06 08:36 | XMS_ITS | Encounter Summary ---
Author Organization [facility] Address [facility] [place] [address] Care Team Providers Care Gym Teacher Name Role Phone Vanessa Christian MAURI Primary Care Provider [phone] Reason for Visit * Consultation (Routine) - Closed Specialty Diagnoses / Procedures Referred By Contac t Referred To Contact Cardiac Surgery Diagnoses Nonrheumatic aortic valve stenosis significant - TAVR ( defers to Card Surg d/t age) Neftali Ernandez MD [facility] [place] [address] Zak Farmer MD [facility] [place] [address] Referral ID Status Reason Start Date Expiration Date V isits Requested Visits Authorized [id number] Closed Consult, Test & Treat 10/21/2023 10/20/2024 1 1 Encounter Details Date Type Department Care Team (Late st Contact Info) Description 01/09/2024 1:40 PM EDT Office [place] [address] Zak Farmer MD [facility] [place] [address] Nonrheumatic aortic valve stenosis Social History Tobacco [...] Sign Reading Time Taken Comments Blood Pressure 117/76 01/09/2024 1:58 PM EDT Pulse 75 01/09/2024 1:58 PM EDT Temperature - - Respiratory Rate - - Oxygen Saturation 99% 01/09/2024 1:58 PM EDT Inhaled Oxygen Concentration - - Weight 68.3 kg (150 lb 9.6 oz) 01/09/2024 1:58 P M EDT Height 167.6 cm (5' 6) 01/09/2024 1:58 PM EDT Body Mass Index 24.31 01/09/2024 1:58 PM EDT documented in this encounter Progress Notes * Zak Farmer MD - 01/09/2024 1:40 PM EDT To: MD Vanessa Cloes APRN Re; Karlos Santa ( 1960) We had an opportunity to meet today with Mr. Santa to discuss issues surrounding the management of his progressively severe now symptomatic aortic disease. Mr. Santa is a 63-year-old man with known aortic stenosis that has been followed with serial echocardiography. He recently has begun to experience symptoms of class II exertional dyspnea significantly worse than last year. A recent echo demonstrates severe possibly bicuspid aortic valve stenosis with an aortic valve area of between0.8 and 0.7 cm??. His LV systolic functions in the 50s. He has a 4 cm aorta on that study. His pastmedical history and systems reviewed in their entirety the pertinent issues are listed here. He hastreated hypertension, he has dyslipidemia. He is not a diabetic. He has had no known previous CVA TIA renal or hepatic insufficiency. He has glaucoma. He used tobacco until about 15 years ago. He hasundergone prior herniorrhaphy. 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 On examination he has a blood pressure [...] carefully with him. He does wish to proceed. The next steps would be for cardiac cath and a CT angio because of the possible by cuspid nature of his aortic valve. Once we have these data points which will be completed on 02 February we will communicate a final plan to your office. In the interim thank you very much allowing us to participate in his care and should you require anything further please do not hesitate to contact my office. Best personal regards, Zak Farmer MD [phone] In aggregate 55 minutes were spent evaluating this patient, reviewing all images, counseling/examining the patient and communicating with other involved physicians. This was a high level complex consult making a decision to refer this patient for aortic valve replacement therapy and cardiac cath. documented in this encounter Plan of Treatment Upcoming Encounters Date Type Department Care Team (Late st Contact Info) Description 05/27/2024 11:00 AM EDT Office Visit Cardiology at [address] [place] [phone] Neftali Ernandez MD [facility] [place] [address] documented as of this encounter Results * XR Chest PA [...] who have questions please contact the health care worker that requested your imaging first. ? Narrative [...] patients who have questions please contactthe health care worker that requested your imaging first. Zak Farmer MD IMG DX ORDERABLES * Basic Metabolic Panel (non-fasting) (01/09/2024 2:58 PM EDT) Glucose Lvl 102 65 - 199 mg/dL [facility] Comment:Diabetes: >=200 mg/d L plus symptoms BUN 15 10 - 20 mg/dL [facility] Creatinine 0.94 0.80 - 1.50 mg/dL [facility] Sodium 137 135 - 145 mmol/L [facility] Potassium 4.5 3.5 - 5.0 mmol/L [facility] Comment: Please note: ??Patients with WBC >100,000 may have falsely elevated Potassium levels. ??For accurate Potassium quantification in these patients send serum separator tube (gold top) for subsequent determinations. ??Contact the Clinical Chemistry Laboratory if there are any questions. Chloride 103 98 - 107 mmol/L [facility] CO2 27 22 - 31 mmol/L [facility] Anion Gap 7 5 - 15 mmol/L [facility] Calcium 9.5 8.5 - 10.5 mg/dL [facility] Estimated GFR 91 >=60 mL/min/1. 73 m?? [facility] Comment: This patient's estimated GFR [...] and symptoms in addition to eGFR. Blood 01/09/2024 2:58 PM EDT 01/09/2024 3:03 PM EDT Narrative Resulting Agency Comment Spec In Lab Zak Farmer MD CHEMISTRY ORDERABLE S [facility] [place] [address] * Hepatic Function Panel (01/09/2024 2:58 PM EDT) Total Protein 6.7 6.1 - 8.0 g/dL [facility] Albumin 4.5 3.2 - 5.2 g/dL [facility] AST 21 0 - 39 unit/L [facility] ALT 21 0 - 55 unit/L [facility] Alk Phos 81 40 - 130 unit/L [facility] Total Bilirubin 0.7 0.2 - 1.3 mg/dL [facility] Bili, Direct 0.2 0.0 - 0.3 mg/dL [facility] Blood 01/09/2024 2:58 PM EDT 01/09/2024 3:03 PM EDT Narrative Resulting Agency Comment Spec In Lab Zak Farmer MD CHEMISTRY ORDERABLE S Performing Organization Address [facility]/ZIP Co de Phone Number [facility] [place] [address] * Prothrombin Time (01/09/2024 2:58 PM EDT) Pathologist [facility] PT 10.6 9.4 - 12.[address] [facility] INR 0.9 [facility] Comment: An INR <2.0 indicates adequate procoagulant activity for hemostasis in most patients without underlying bleeding disorders, though the INR may not adequately reflect hemostatic capacity in patients with liver disease and synthetic impairment. The recommended target INR range for therapeutic anticoagulation is 2.0 ? 3.0 for most applications, though lower and higher ranges may be appropriate depending on clinical circumstances. Blood 01/09/2024 2:58 PM EDT 01/09/2024 3:03 PM EDT Narrative Resulting Agency Comment Spec In Lab Zak Farmer MD HEMATOLOGY ORDERABL ES Performing Organization Address City/[facility]/ZIP Co de Phone Number [facility] [place] [address] * Type and Screen Future Surgery, [facility] SAME DAY PROGRAM ONLY) (01/09/2024 2:58 PM EDT) ABORH Type O NEGATIVE [facility] Patient BB History Not Found [facility] Expires at 2359 on: 02-20-2024 [facility] Ab Screen Interp Negative [facility] Blood 01/09/2024 2:58 PM EDT 01/09/2024 2:58 PM EDT Narrative Resulting Agency Comment Spec In Lab Zak Farmer MD BLOOD BANK LAB CECILIO ALEMAN [facility] Organization Address City/State/ZIP Co de Phone Number [facility] [place] [address] documented in this encounter Visit Diagnoses Diagnosis Nonrheumatic aortic valve stenosis Aortic valve disorders Nonrheumatic aortic valve stenosis Aortic valve disorders documented in this encounter Care Teams Gym Teacher Relationship Specialty Start Date End Date Vanessa Christian APRN PCP - General Family Medicine 10/21/23 documented as of this encounter
--- OUTSIDE RECORDS SUMMARY | 2024-05-06 08:36 | XMS_ITS | Encounter Summary ---
Author Organization Replaced By [facility] Address [facility] [place] [address] Care Team Providers Care Director Of Retail Merchandising Name Role Phone Vanessa Christian APRN Primary Care Provider [phone] Encounter Details Date Type Department Care Team (Latest Contact Info) Description 02/03/2024 Travel Social History Tobacco Use Types Packs/Day [...] 11:00 AM EDT Office Visit Cardiology at [address] [place] [address] Neftali Ernandez MD [facility] [place] [address] documented as of this encounter Visit Diagnoses Not on filedocumented in this encounter Care Teams Director Of Retail Merchandising Relationship Specialty Start Date End Date Vanessa Christian APRN PCP - General Family Medicine 10/21/23 documented as of this encounter
--- OUTSIDE RECORDS SUMMARY | 2024-05-06 08:36 | XMS_ITS | Encounter Summary ---
Author Organization [facility] Address [facility] [place] [address] Care Team Providers Care Rotary Drill Operator Name Role Phone Vanessa Christian MAURI Primary Care Provider [phone] Reason for Referral * Diagnostic Test (Routine) - Closed Specialty Diagnoses / Procedures Referred By Contac t Referred To Contact Radiology Diagnoses Nonrheumatic aortic valve stenosis Procedures CT Chest wo Contrast (Generic) Louisa Reid PA [facility] [place] [address] [facility] [place] [address] Referral ID Status Reason Start Date Expiration Date V isits Requested Visits Authorized [id number] Closed Specialty Service Requested 01/10/2024 07/11/2025 1 1 Encounter Details Date Type Department Care Team (Late st Contact Info) Description 01/09/2024 Orders [place] [address] Zak Farmer MD [facility] [place] [address] Nonrheumatic aortic valve stenosis Social History Tobacco Use Types Packs/Day Years Used Date Smoking Tobacco: Former Cigarettes Smokeless Tobacco: Never Comments:Quit 15 + years ago Alcohol Use Standard Drinks/Week Comments Yes 0 (1 standard drink = 0.6 oz pur e alcohol) rare IPV Inpatient Questions Answer Date Recorded Prevent [...] as of this encounter Miscellaneous Notes * Addendum Note - Louisa Reid PA - 01/09/2024 4:32 PM EDTAddended by: LOUISA REID on: 01/10/2024 03:21 PM Modules accepted: Orders documented in this encounter Plan of Treatment Upcoming Encounters Date Type Department Care Team (Late st Contact Info) Description 05/27/2024 11:00 AM EDT Office Visit Cardiology at [address] [place] [address] Neftali Ernandez MD [facility] [place] [place] [address] documented as of this encounter Results * CT Chest wo Contrast (Generic) (02/03/2024 7:44 AM EDT) Jobyal WORKSTATION ID [id number] RAD Anatomical Region Laterality Modality Chest Computed Tomogra phy Impressions 02/03/2024 10:00 AM EDT 1. ??Densely calcified aortic valve. 2. ??No thoracic aortic aneurysm. 3. ??Sequela of COPD/emphysema. I have personally reviewed the image(s) and the resident's interpretation and agree with the findings, Rogerio Wright MD at 02/03/2024 10:00 AM Thank you for letting us participate in the care of this patient. ??If you are a health care provider and have any questions regarding this report, please contact the number below. ??For patients who have questions please contact the health hospice care sales consultant that requested your imaging first. ? Narrative 02/03/2024 10:00 AM EDT EXAMINATION: CT CHEST WO CONTRAST (GENERIC) CLINICAL HISTORY: Aortic aneurysm, known or suspected bicuspid AV stenosis I35.0, Nonrheumatic aortic (valve) stenosis TECHNIQUE: Helical CT of the chest without intravenous contrast administration. Thin-section reconstructions as well as coronal and sagittal reformatted images were generated. COMPARISON: Chest radiograph 01/09/2024 FINDINGS: Pulmonary parenchyma: Biapical pleural parenchymal scarring. Mild bilateral centrilobular and paraseptal emphysema. There is 5 mm right middle lobe triangular perifissural nodule along the minor fissure (series 302 image 243) and a 8 mm right lower lobe triangular perifissural nodule along the major fissure (series 302 image 266), likely intrapulmonary lymph nodes. Airways: No bronchiectasis. No bronchial wall thickening. Pleura: No pneumothorax. No pleural effusions. Lymph nodes: No lymphadenopathy. Heart and vasculature: Normal size of the heart. No pericardial effusion. Normal caliber of the thoracic aorta. Coronary artery and aortic calcifications. Densely calcified aortic valve. Other mediastinal structures: Normal esophagus. No mediastinal hematoma, collection or pneumomediastinum. Lower neck and chest wall soft tissues: No significant findings. Upper abdomen: No significant findings. Skeletal structures: No significant findings. Procedure Note Rogerio Wright MD - 02/03/2024 EXAMINATION: CT CHEST WO CONTRAST (GENERIC) CLINICAL HISTORY: Aortic aneurysm, known or suspected bicuspid AV stenosis I35.0, Nonrheumatic aortic (valve) stenosis TECHNIQUE: Helical CT of the chest without intravenous contrastadministration. Thin-section reconstructions as well as coronal and sagittal reformattedimages were generated. COMPARISON: Chest radiograph 01/09/2024 FINDINGS: Pulmonary parenchyma: Biapical pleural parenchymal scarring. Mildbilateral centrilobular and paraseptal emphysema. There is 5 mm right middle lobe triangular perifissural nodule along the minor fissure (series 302 egptd528) and a 8 mm right lower lobe triangular perifissural nodule along themajor fissure (series 302 image 266), likely intrapulmonary lymph nodes. Airways: No bronchiectasis. No bronchial wall thickening. Pleura: No pneumothorax. No pleural effusions. Lymph nodes: No lymphadenopathy. Heart and vasculature: Normal size of the heart. No pericardial effusion.Normal caliber of the thoracic aorta. Coronary artery and aorticcalcifications. Densely calcified aortic valve. Other mediastinal structures: Normal esophagus. No mediastinal hematoma, collection or pneumomediastinum. Lower neck and chest wall soft tissues: No significant findings. Upper abdomen: No significant findings. Skeletal structures: No significant findings. IMPRESSION 1. Densely calcified aortic valve. 2. No thoracic aortic aneurysm. 3. Sequela of COPD/emphysema. I have personally reviewed the image(s) and the resident's interpretationand agree with the findings, Rogerio Wright MD at 02/03/2024 10:00 AM Thank you for letting us participate in the care of this patient. If youare a health care provider and have any questions regarding this report,please contact the number below. For patients who have questions please contactthe health hospice care sales consultant that requested your imaging first. Zak Farmer MD IMG CT ORDERABLES documented in this encounter Visit Diagnoses Diagnosis Nonrheumatic aortic valve stenosis Aortic valve disorders Nonrheumatic aortic valve stenosis Aortic valve disorders documented in this encounter Care Teams Rotary Drill Operator Relationship Specialty Start Date End Date Vanessa Christian APRN PCP - General Family Medicine 10/21/23 documented as of this encounter
--- OUTSIDE RECORDS SUMMARY | 2024-05-06 08:36 | XMS_ITS | Encounter Summary ---
Author Organization [facility] [place] [address] Care Team Providers Care Communication Electronic Technician Name Role Phone Vanessa Christian APRN Primary Care Provider [phone] Encounter Details Date Type Department Care Team (Late st Contact Info) Description 10/21/2023 Abstract Cardiology at [address] [phone] Adam Mayes RN Social History Tobacco Use Types Packs/Day Years [...] 11:00 AM EDT Office Visit Cardiology at [address] [place] [address] [facility] [address] documented as of this encounter Visit Diagnoses Not on filedocumented in this encounter Care Teams Communication Electronic Technician Relationship Specialty Start Date End Date Vansesa Christian APRN PCP - General Family Medicine 10/21/23 documented as of this encounter
--- OUTSIDE RECORDS SUMMARY | 2024-05-06 08:36 | XMS_ITS | Encounter Summary ---
Author Organization [facility] Address [facility] [place] [address] Care Team Providers Care Foot Roentgenologist Name Role Phone Vanessa Christian MAURI Primary Care Provider [phone] Encounter Details Date Type Department Care Team (Late st Contact Info) Description 02/14/2024 [place] [phone] Zak Farmer MD [facility] [place] [address] Coronary artery disease, unspecified vessel or lesion type, unspecified whether angina present, unspecified whether eagle or transplanted heart (Primary Dx) Social History Tobacco Use Types Packs/Day Years [...] 11:00 AM EDT Office Visit Cardiology at [address] [place] [phone] Neftali Ernandez MD [facility] [place] [place] [address] documented as of this encounter Results * EKG 12 Lead (03/12/2024 2:35 PM EDT) Ventricular rate 59 BPM MUSE SYSTEM Atrial Rate 59 BPM MUSE SYSTEM P-R Interval 190 ms MUSE SYSTEM QRS Duration 92 ms MUSE SYSTEM Q-T Interval 406 ms MUSE SYSTEM QTC Calculated (Bezet) 401 ms MUSE SYSTEM Calculated P Dows -12 degrees MUSE SYSTEM Calculated R Dows 24 degrees MUSE SYSTEM Calculated T Dows 74 degrees MUSE SYSTEM INTERPRETATION Sinus bradycardia T wave abnormality, consider anterior ischemia Abnormal ECG When compared with ECG of 17-FEB-2024 13:24, IA interval has decreased T wave inversion now evident in Anterior leads Confirmed by Paul Guzman ([id number]) on 03/15/2024 8:36:23 AM MUSE SYSTEM 03/12/2024 2:35 PM EDT 03/15/2024 8:36 AM EDT Zak Farmer MD ECG ORDERABLES MUSE SYSTEM * XR Chest PA & Lateral (Generic) (03/12/2024 1:42 PM EDT) WORKSTATION ID [id number] RAD Anatomical Region Laterality Modality Chest N/A [...] have questions please contact the health care program resident that requested your imaging first. ? Electronically signed by: Augie Sanchez MD, [facility] ([phone]), at 03/13/2024 8:28 AM Narrative 03/13/2024 8:28 AM EDT EXAMINATION: XR CHEST PA AND LATERAL (GENERIC) CLINICAL HISTORY: s/p cabg eval effusions I25.10, Atherosclerotic heart disease of eagle coronary artery without angina pectoris TECHNIQUE: PA [...] eval effusions I25.10, Atherosclerotic heart disease of eagle coronary artery withoutangina pectoris TECHNIQUE: PA and [...] who have questions please contactthe health care program resident that requested your imaging first. Electronically signed by: Augie Sanchez MD, [facility]([phone]), at 03/13/2024 8:28 AM Zak Farmer MD IMG DX ORDERABLES documented in this encounter Visit Diagnoses Diagnosis Coronary artery disease, unspecified vessel or lesion type, unspecified whether angina present, unspecified whether eagle or transplanted heart- Primary Coronary artery disease, unspecified vessel or lesion type, unspecified whether angina present, unspecified whether eagle or transplanted heart documented in this encounter Care Teams Foot Roentgenologist Relationship Specialty Start Date End Date Vanessa Christian APRN PCP - General Family Medicine 10/21/23 documented as of this encounter
--- OUTSIDE RECORDS SUMMARY | 2024-05-06 08:36 | XMS_ITS | Encounter Summary ---
Author Organization [facility] [place] [address] Care Team Providers Care Sr. Director Product Management Name Role Phone Vanessa Christian MAURI Primary Care Provider [phone] Encounter Details Date Type Department Care Team (Latest Contact Info) Description 01/09/2024 3:00 PM EDT [place] [phone] Nonrheumatic aortic valve stenosis Social History Tobacco Use Types Packs/Day Years Used Date Smoking Tobacco: Former Cigarettes Smokeless Tobacco: Never Comments:Quit 15 + years ago Alcohol Use Standard Drinks/Week Comments Yes 0 (1 standard drink = 0.6 oz pur e alcohol) rare [facility] Inpatient Questions Answer Date Recorded Prevent Contact [...] 11:00 AM EDT Office Visit Cardiology at [address] [phone] Neftali Ernandez MD [facility] [address] [place] [address] documented as of this encounter Procedures Procedure Name Priority Date/Time Associated Diagnosis Comments ABORH RECHECK STATUS Routine 01/09/2024 2:58 PM EDT HEMOGRAM Routine 01/09/2024 2:58 PM EDT Nonrheumatic aortic valve stenosis DIFFERENTIAL, AUTOMATED Routine 01/09/2024 2:58 PM EDT Nonrheumatic aortic valve stenosis TYPE AND SCREEN, SDP (FUTURE SURGERY, [facility] SAME DAY PROGRAM ONLY) Routine 01/09/2024 2:58 PM EDT Nonrheumatic aortic valve stenosis HC PROTHROMBIN TIME Routine 01/09/2024 2 :58 PM EDT Nonrheumatic aortic valve stenosis HC CBC,PLT & AUTO DIFF Routine 01/09/2024 2:58 PM EDT Nonrheumatic aortic valve stenosis HEPATIC FUNCTION PANEL Routine 01/09/2024 2:58 PM EDT Nonrheumatic aortic valve stenosis BASIC METABOLIC PANEL (NON-FASTING) Routine 01/09/2024 2:58 PM EDT Nonrheumatic aortic valve stenosis documented in this encounter Results * ABORH Recheck Status (01/09/2024 2:58 PM EDT) ABORH Recheck Order Order Placed [facility] ABORH Type Recheck Completed [facility] Blood 01/09/2024 2:58 PM EDT 01/09/2024 3:08 PM EDT Narrative Resulting Agency Comment Spec In Lab Zak Farmer MD BLOOD BANK LAB CECILIO ALEMAN [facility] [place] [address] * Differential, Automated (01/09/2024 2:58 PM EDT) Neutrophils % 70.5 % [facility] Neutr Abs (ANC) 4.34 1.70 - 6.10 x10(3)/[facility] Lymphocytes % 18.9 % [facility] Lymphocytes Abs 1.2 0.9 - 3.2 x10(3)/[facility] Monocytes % 8.0 % [facility] Monocyte Abs 0.5 0.3 - 0.9 x10(3)/[facility] Eosinophils % 1.6 % [facility] Eosinophils Abs 0.1 0.0 - 0.4 x10(3)/[facility] Basophils % 0.5 % [facility] Basophils Abs 0.0 0.0 - 0.1 x10(3)/[facility] Immature Gran % 0.50 % [facility] Comment: Immature granulocytes(IG's)percentage and absolute count will include metamyelocytes, myelocytes, and promyelocytes. Blood smears from CBCs yielding IG's will be scanned manually for concordance. If this scan disagrees with the automated IG or if promyelocytes are noted, a manual differential will be performed. [place] Gran Abs 0.03 0.00 - 0.04 x10(3)/[facility] Blood 01/09/2024 2:58 PM EDT 01/09/2024 3:03 PM EDT Narrative Resulting Agency Comment Spec In Lab Zak Farmer MD HEMATOLOGY ORDERABL ES [facility] [place] [address] * Hemogram (01/09/2024 2:58 PM EDT) WBC 6.2 4.0 - 9.5 x10(3)/[facility] RBC 5.53 4.58 - 5.54 x10(6)/[facility] Hemoglobin 16.1 13.7 - 16.5 g/dL [facility] Hematocrit 46.9 40.5 - 48.5 % [facility] MCV 84.8 82.9 - 93.1 fL [facility] MCH 29.1 27.5 - 32.1 pg [facility] MCHC 34.3 32.0 - 35.7 g/dL [facility] Platelets 187 145 - 357 x10(3)/[facility] RDWSD 39.2 36.0 - 45.0 [facility] RDWCV 12.6 11.4 - 13.8 % [facility] MPV 9.5 7.6 - 12.9 [facility] nRBC % Auto 0.0 % [facility] nRBC Abs Auto 0.000 0.000 - 0.000 x10(3)/[facility] Blood 01/09/2024 2:58 PM EDT 01/09/2024 3:03 PM EDT Narrative Resulting Agency Comment Spec In Lab Zak Farmer MD HEMATOLOGY ORDERABL ES [facility] [place] [address] * Basic Metabolic Panel (non-fasting) (01/09/2024 2:58 PM EDT) Glucose Lvl 102 65 - 199 mg/dL [facility] Comment:Diabetes: >=200 mg/d L plus symptoms BUN 15 10 - 20 mg/dL [facility] Creatinine 0.94 0.80 - 1.50 mg/dL [facility] Sodium 137 135 - 145 mmol/L [facility] Potassium 4.5 3.5 - 5.0 mmol/L [facility] Comment: Please note: ??Patients with WBC >100,000 may have falsely elevated Potassium levels. ??For accurate Potassium quantification in these patients send serum separator tube (gold top) for subsequent determinations. ??Contact the Clinical Chemistry Laboratory if there are any questions. Chloride 103 98 - 107 mmol/L [facility] CO2 27 22 - 31 mmol/L [facility] Anion Gap 7 5 - 15 mmol/L [facility] Calcium 9.5 8.5 - 10.5 mg/dL [facility] Estimated GFR 91 >=60 mL/min/1. 73 m?? [facility] Comment: This patient's estimated [...] MD CHEMISTRY ORDERABLE S Performing Organization Address City/State/[facility] Co de Phone Number [facility] [place] [address] * Hepatic Function Panel (01/09/2024 2:58 PM EDT) Total Protein 6.7 6.1 - 8.0 g/dL [facility] Albumin 4.5 3.2 - 5.2 g/dL [facility] AST 21 0 - 39 unit/L [facility] ALT 21 0 - 55 unit/L [facility] Alk Phos 81 40 - 130 unit/L [facility] Total Bilirubin 0.7 0.2 - 1.3 mg/dL [facility] Bili, Direct 0.2 0.0 - 0.3 mg/dL [facility] Blood 01/09/2024 2:58 PM EDT 01/09/2024 3:03 PM EDT Narrative Resulting Agency Comment Spec In Lab Zak Farmer MD CHEMISTRY ORDERABLE S Performing Organization Address [facility] Co de Phone Number [facility] [place] [address] * Prothrombin Time (01/09/2024 2:58 PM EDT) PT 10.6 9.4 - 12.5 sec [facility] INR 0.9 [facility] Comment: An INR <2.0 indicates adequate [...] MD HEMATOLOGY ORDERABL ES Performing Organization Address [facility] Co de Phone Number [facility] [place] [address] * Type and Screen Future Surgery, [facility] SAME DAY PROGRAM ONLY) (01/09/2024 2:58 PM EDT) ABORH Type O NEGATIVE [facility] Patient BB History Not Found [facility] Expires at [id number] on: 02-20-2024 [facility] Ab Screen Interp Negative [facility] Blood 01/09/2024 2:58 PM EDT 01/09/2024 2:58 PM EDT Narrative Resulting Agency Comment Spec In Lab Zak Farmer MD BLOOD BANK LAB ORDE RABLES Performing Organization Address City/[facility]/ZIP Co [place] [address] documented in this encounter Visit Diagnoses Diagnosis Nonrheumatic aortic valve stenosis Aortic valve disorders documented in this encounter Care Teams Sr. Director Product Management Relationship Specialty Start Date End Date Vanessa Christian APRN PCP - General Family Medicine 10/21/23 documented as of this encounter
--- OUTSIDE RECORDS SUMMARY | 2024-05-06 08:36 | XMS_ITS | Encounter Summary ---
Author Organization [facility] [place] [address] Care Team Providers Care Popcorn Attendant Name Role Phone Victor M Lafleur MD Primary Care Provider [phone] Encounter Details Date Type Department Care Team (Late st Contact Info) Description 09/26/2023 Abstract Cardiology at [address] [phone] Karen Billy, RN Nonrheumatic aortic valve stenosis; Nevus of face Social History Tobacco Use Types Packs/Day Years Used Date Smoking Tobacco: Never Assessed Sex and Gender Information Value Date Recorded Sex Assigned at Not on file Gender Identity Not on file Sexual Orientation Not on file documented as of this encounter Last Filed Vital Signs Vital Sign Reading Time Taken Comments Blood Pressure - - Pulse - - Temperature - - Respiratory Rate - - Oxygen Saturation - - Inhaled Oxygen Concentration - - Weight 64.9 kg (143 lb) 09/26/2023 9:30 AM EST Height 172.7 cm (5' 8) 09/26/2023 9:30 AM EST Body Mass Index 21.74 09/26/2023 9:30 AM EST documented in this encounter Plan of Treatment Upcoming Encounters Date Type Department Care Team (Late st Contact Info) Description 05/27/2024 11:00 AM EDT Office Visit Cardiology at [address] [phone] Neftali Ernandez MD [facility] [place] [address] documented as of this encounter Visit Diagnoses Diagnosis Nonrheumatic aortic valve stenosis Aortic valve disorders Nevus of face Benign neoplasm of skin of other and unspecified parts of face documented in this encounter Care Teams Popcorn Attendant Relationship Specialty Start Date End Date Victor M Lafleur MD PCP - General 10/02/13 10/20/23 documented as of this encounter
--- OUTSIDE RECORDS SUMMARY | 2024-05-06 08:36 | XMS_ITS | Encounter Summary ---
Author Organization [facility] [place] [address] Care Team Providers Care Phonograph Needle Tip Maker Name Role Phone Vanessa Christian MAURI Primary Care Provider [phone] Reason for Visit * Auth/Cert (Routine) Specialty Diagnoses / Procedures Referred By Contac t Referred To Contact Diagnoses CAD (coronary artery disease) CAD Procedures PRO ENDOSCOPY W/VIDEO-ASST VEIN HARVEST, CABG PRO CABG, ARTERIAL, SINGLE PRO CABG, ARTERY-VEIN, TWO ENDOSCOPIC HARVEST VEIN(S) FOR CABG (WRVU 0.31) @CABG, USING ARTERIAL GRAFT;SINGLE ARTERIAL GRAFT (WRVU 33.75) @CABG, TWO VENOUS GRAFTS & ARTERIAL GRAFT (WRVU 7.93) Zak Farmer MD [facility] CARDIOTHORAC[place] [address] [facility] Referral ID Status Reason Start Date Expiration Date Visits Re quested Visits Authorized [id number] 1 1 Encounter Details Date Type Department Care Team (Late st Contact Info) Description 02/17/2024 7:35 AM EDT Anesthesia Event Main Operating [place] [address] [phone] Roman York MD [facility] [place] [address] Anesthesia Record Procedure Summary Procedure Name Responsible Anesthesiologist Anesthesia Start Time Anesthesia Stop Time ENDOSCOPIC HARVEST VEIN(S) FOR CABG (WRVU 0.31) (Left: Leg) Roman York MD 02/17/24 0735 02/17/24 1313 Events Date Time Event Comment 02/17/2024 0724 0735 AN Verify 0735 Start 0735 An Start Data 0744 An Induction 0747 An Intubation 0751 EMMA PROBE ONLY 0800 Anesthesia Ready 0824 Procedure Start 0829 Sternotomy 0926 CV Bypass init 0928 An Clamp start 1120 Rewarming 1140 An Clamp Remove 1221 Quick Note Switched to ear pulse ox 1255 an stop data 1311 Recovery or ICU Handoff Gabby ent care was transferred to the destination unit staff after review of the patient's medical history, current anesthetic/surgical status and plan, according to the Provider Handoff Checklist. 1313 Stop Meds Name Total Midazolam 3 mg fentaNYL 1,000 mcg Propofol 200 mg Propofol INF 143.64 mg PHENYLephrine INF 1,640 mcg Heparin 20,000 Units Protamine 160 mg rocuronium 150 mg NORepinephrine INF 298 mcg NORepinephrine 28 mcg niCARdipine 0.2 mg * Agents Name O2 Isoflurane (et) * Blood No blood administrations on file. Lines, Drains, and Airways Type Details Placement Removal Incision 02/17/24; midline; s ternal; vertical 02/17/24 0000 by Driss Moncada RN Incision 02/17/24; Left, ante rior, medial; knee; vertical, laparoscopic puncture; puncture site at groin and calf for EVH 02/17/24 0000 by Driss Moncada RN Drain/Device Site 02/17/24; Left; medi al; knee; collapsible closed device; 02/17/24; 2100 02/17/24 0000 by Driss Moncada RN 02/17/24 2100 by Amber Garcia RN Chest Tube 02/17/24; Chest Tube ; Left; lateral; other (see comments); Pleural, 24F amie drain; 02/18/24; 92902/17/24 0000 by Driss Moncada RN 02/18/24 0930 by Sadiq Woo RN Chest Tube 02/17/24; Chest Tube ; Left; anterior; mediastinum; 28F straight, anterior to heart; 02/18/24; 0930 02/17/24 0000 by Driss Moncada RN 02/18/24 0930 by Sadiq Woo RN Chest Tube 02/17/24; Chest Tube ; Right; anterior; mediastinum; 28F angled, posterior to heart; 02/18/24; 92902/17/24 0000 by Driss Moncada RN 02/18/24 0930 by Sadiq Woo RN PIV 02/17/24; 0715; sxva-yee-rojayf catheter system; 18 gauge; cephalic vein (lateral side of arm), left; distraction, intradermal injection, tolerated well, appears comfortable; 02/24/24; 92802/17/24 0715 by Jeanette Gonzalez RN 02/24/24 0929 by Sachi Fajardo LNA ETT ETT Type: Cuffed; ET T Size: 8 mm; Mac Blade: 4; Notes: Asleep, Pre-O2, Stylette, Cricoid Pressure; Attempts: 1; Laryngoscopy Grade: 2; Secured at Teeth: 23 cm; Removal Date: 02/17/24; Removal Time: 16402/17/24 0752 by Roman York MD 02/17/24 1645 by Kim Ha RCP Urethral Catheter 02/17/24; 0800; Surg suyapa longer than 2 hours, Need for intraoperative urine output monitoring; indwelling catheter with core temperature probe; 100% silicone; 14; inserted at this facility; 1; none; drainage bag; 02/19/24; 1050 02/17/24 0800 by Driss Moncada RN 02/19/24 1050 by Jazlyn Maldonado RN Arterial Line 02/17/24; 0808; radi al artery, left; 20 gauge; Anatomical Landmarks, Guidewire; continuous blood pressure monitoring, frequent blood gas measurement; Sterile Prep, Sterile Gloves; 02/18/24; 1030 02/17/24 0808 by Roman York MD 02/18/24 1030 by Sadiq Woo RN Cental Line 02/17/24; 0808; intr oducer; 9 Fr; internal jugular vein, right; Ultrasound Guidance; Yes - US guidance used for evaluation of potential access sites, vessel patency and realtime visualization of needle entry with permanent recording.; EMMA; 02/18/24; 1030 02/17/24 0808 by Roman York MD 02/18/24 1030 by Sadiq Woo RN PA Catheter 02/17/24; 0808; Five Lumen; standard thermodilution catheter; 8.5 Fr; Right; internal jugular vein; CVC Bundle Performed; 02/17/24; 2100 02/17/24 0808 by Roman York MD 02/17/242099 by Amber Garcia RN documented in this encounter Social History Tobacco Use Types Packs/Day Years Used Date Smoking Tobacco: Former Cigarettes Smokeless Tobacco: Never Comments:Quit 15 + years ago Alcohol Use Standard Drinks/Week Comments Yes 0 (1 standard drink = 0.6 oz pur e alcohol) rare [facility] Utilities Answer Date Recorded In the past 12 months has th e electric, gas, oil, or water [employer] threatened to shut off services in your [...] place to sleep or slept in a penitentiary (including now)? No 02/18/2024 DH IPV Inpatient [...] on file documented as of this encounter OR Notes * Anesthesia Postprocedure Evaluation - Roman York MD - 02/17/2024 1:48 PM EDT Department of Anesthesiology Post-procedure Note Patient: Karlos Anthony Procedure Summary Date: 02/17/24 Room / Location: [facility] OR [address] [place] [address] MAIN OR Anesthesia Start: 734 Anesthesia Stop: 1312 Procedures: ENDOSCOPIC HARVEST VEIN(S) FOR CABG (WRVU 0.31) (Left: Leg) @CABG, USING ARTERIAL GRAFT;SINGLE ARTERIAL GRAFT (WRVU 33.75) (Chest) @CABG, TWO VENOUS GRAFTS & ARTERIAL GRAFT (WRVU 7.93) (Chest) @REPLACE AORTIC VALVE, OPEN, W\CPB, W\PROSTHETIC VALVE (WRVU 41.32) (Chest) Diagnosis: (CAD) Surgeons: Zak Farmer MD Responsible Provider: Roman York MD Anesthesia Type: general ASA Status: 3 All Anesthesia Providers: Anesthesiologist: Roman York MD Vitals Value Taken Time BP Temp 33.5 ??C (92.3 ??F) 02/17/24 1315 Pulse 70 02/17/24 1347 Resp 13 02/17/24 1347 SpO2 98 % 02/17/24 1347 Pain Level Vitals shown include unfiled device data. Patient Location: [facility] Level of Consciousness: Sedated (Pharmacologic/Intentional) Pain Management: PONV: Cardiovascular Status: Hypotension (received treatment) Respiratory Status: Intubated/Ventilated Postoperative Fluid Status: Intravascular EUvolemia Possible Anesthetic Complications: NONE apparent at time of evaluation Final Primary Anesthesia Type: General (The anesthetic type performed was the same as planned.) Comments: * Anesthesia Preprocedure Evaluation - Roman York MD - 02/17/2024 4:28 AM EDT Pre-Anesthesia Evaluation for: Karlos Anthony a 63 y.o. male. Procedure(s): ENDOSCOPIC HARVEST VEIN(S) FOR CABG (WRVU 0.31) @CABG, USING ARTERIAL GRAFT;SINGLE ARTERIAL GRAFT (WRVU 33.75) @CABG, TWO VENOUS GRAFTS & ARTERIAL GRAFT (WRVU 7.93) Patient Active Problem List Diagnosis Date Noted ??? Gastroesophageal reflux 09/26/2023 ??? 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 Aortic stenosis 08/14/2023 ??? Hypertension 08/14/2023 ??? HLD (hyperlipidemia) 08/14/2023 Past Medical History: Diagnosis Date ??? Gastroesophageal reflux 09/26/2023 ??? Heart valve disease ??? HLD (hyperlipidemia) 08/14/2023 ??? Hypertension 08/14/2023 ??? 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 Social History Tobacco Use ??? Smoking status: Former Types: Cigarettes ??? Smokeless tobacco: Never ??? Tobacco comments: Quit 15 + years ago Substance Use Topics ??? Alcohol use: Yes Comment: rare Social History Substance and Sexual Activity Drug Use Never No Known Allergies Medications: MAR and/or home medications have been reviewed. Physical Exam: Preprocedure Vitals Current as of 02/17/24 0428 No BP, pulse, respiration, SpO2, or temperature recorded. Height: Weight: BMI: IBW: Airway Assessment: Mallampati: II Cardiovascular Assessment: Rhythm: regular Rate: normal Pulmonary Assessment: unlabored breathing Dental Assessment: - normal exam Misc Assessment: IV access: Peripheral line Last Filed Perioperative Cognitive Screening None Anesthesia Plan: ASA 3 general, with a(n) intravenous induction 63 y.o.male (67 kg/BMI 24) h/o HTN, HL, GERD, CAD of LM, ?bicuspid AoV c/b severe scheduled for AVR/CABG. Patient denies significant GERD, recent URI symptoms and is appropriately NPO. TTE 12/2022 Preserved BiV function, no WMAs, VITA 0.8, mild TR Activity status: ADR:No Known Allergies Recent Labs: Lab Results Component Value Date WBC 6.2 01/09/2024 RBC 5.53 01/09/2024 HGB 16.1 01/09/2024 HCT 46.9 01/09/2024 MCV 84.8 01/09/2024 MCH 29.1 01/09/2024 MCHC 34.3 01/09/2024 PLATELET 187 01/09/2024 RDWCV 12.6 01/09/2024 Lab Results Component Value Date/Time NA 137 01/09/2024 02:58 PM K 4.5 01/09/2024 02:58 PM CL 103 01/09/2024 02:58 PM CO2 27 01/09/2024 02:58 PM BUN 15 01/09/2024 02:58 PM CREATININE 0.94 01/09/2024 02:58 PM T&S Status: Until 02/20/24 Anesthetic Hx: XXX Airway Hx: None avail Plan: GETA, yelena, CVC/PAC, EMMA, ICU postop The patient was informed of the risks, benefits and alternatives of anesthesia. These risks included, but were not limited to, prolonged intubation, post- operative nausea and/or vomiting, pain, sore throat, dental/lip trauma, and other rare but serious complications such as major organ damage, awareness, severe allergic reactions, position-related nerve injuries, and need blood transfusions. The patient accepts that additional procedures and/or escalation of care may be necessary as dictated bythe course of the procedure/anesthetic. All questions sought and answered. Consent was signed and placed in chart. Region - Other Informed Consent: Anesthetic plan and risks discussed with patient. Anesthesia Screening documented in this encounter Miscellaneous Notes * Addendum Note - Roman York MD - 02/17/2024 3:26 PM EDT Addendum created 02/17/24 1526 by Roman York MD Intraprocedure Meds edited documented in this encounter Plan of Treatment Upcoming Encounters Date Type Department Care Team (Late st Contact Info) Description 05/27/2024 11:00 AM EDT Office Visit Cardiology at [address] [place] [address] Neftali Ernandez MD [facility] [place] [place] [address] documented as of this encounter Visit Diagnoses Not on filedocumented in this encounter Administered Medications Inactive Administered Medications - up to 3 most recent administrations Medication Order MAR Action Action Date Dose Rate Site fentaNYL (pf) (50 mcg/mL) multi-dose injection Intravenous, PRN, Starting on Sat02/17/24 at 0824, Until Sat02/17/24 at 1348, Anesthesia Intra-op, Routine Given 02/17/2024 8:32 AM EDT 250 mcg Given 02/17/2024 8:30 AM EDT 250 mcg Given 02/17/2024 8:24 AM EDT 250 mcg heparin (porcine) (1,000 units/mL) injection Intravenous, PRN, Starting on Sat02/17/24 at 0857, Until Sat02/17/24 at 1348, Anesthesia Intra-op, Routine Given 02/17/2024 8:57 AM EDT 20,000 Un its midazolam (pf) (Versed) (1 mg/mL) multi-dose injection Intravenous, PRN, Starting on Sat02/17/24 at 0929, Until Sat02/17/24 at 1348, Anesthesia Intra-op, Routine Given 02/17/2024 11:41 AM EDT 1 mg Given 02/17/2024 9:29 AM EDT 1 mg Given 02/17/2024 7:30 AM EDT 1 mg niCARdipine (Cardene) injection Intravenous, PRN, Starting on Sat02/17/24 at 1218, Until Sat02/17/24 at 1348, Anesthesia Intra-op, Routine Given 02/17/2024 12:18 PM EDT 0.2 mg NORepinephrine (Levophed) (16 mcg/mL) in dextrose 5% 250 mL infusion Intravenous, CONTINUOUS PRN, Starting on Sat02/17/24 at 0838, Until Sat02/17/24 at 1348, Anesthesia Intra-op, Routine Rate/Dose Change 02/17/2024 12:34 PM EDT 1 mcg/min 3.75 mL/hr Rate/Dose Change 02/17/2024 12:29 PM EDT 2 mcg/min 7.5 mL /hr Restarted 02/17/2024 12:27 PM EDT 1 mcg/min 3.75 mL/hr NORepinephrine (Levophed) injection Intravenous, PRN, Starting on Sat02/17/24 at 0839, Until Sat02/17/24 at 1348, Anesthesia Intra-op, Routine Given 02/17/2024 12:27 PM EDT 8 mcg Given 02/17/2024 9:17 AM EDT 8 mcg Given 02/17/2024 9:05 AM EDT 4 mcg PHENYLephrine (Hilario-Synephrine) (80 mcg/mL) in sodium chloride 0.9% 250 mL infusion Intravenous, CONTINUOUS PRN, Starting on Sat02/17/24 at 0744, Until Sat02/17/24 at 1348, Anesthesia Intra-op, Routine New Bag 02/17/2024 7:44 AM EDT 40 mcg/min 30 mL/hr propofoL (Diprivan) (10 mg/mL) infusion Intravenous, CONTINUOUS PRN, Starting on Sat02/17/24 at 1219, Until Sat02/17/24 at 1348, Anesthesia Intra-op, Routine New Bag 02/17/2024 12:19 PM EDT 40 mcg/kg/min 15.96 mL/hr propofoL (Diprivan) 10 mg/mL bolus injection (Anesthesia) Intravenous, PRN, Starting on Sat02/17/24 at 0744, Until Sat02/17/24 at 1348, Anesthesia Intra-op Given 02/17/2024 8:31 AM EDT 100 mg Given 02/17/2024 7:44 AM EDT 100 mg protamine (10 mg/mL) injection Intravenous, PRN, Starting on Sat02/17/24 at 1203, Until Sat02/17/24 at 1348, Anesthesia Intra-op, Routine Given 02/17/2024 12:03 PM EDT 160 mg rocuronium (Zemuron) (10 mg/mL) multi-dose injection Intravenous, PRN, Starting on Sat02/17/24 at 0745, Until Sat02/17/24 at 1348, Anesthesia Intra-op, Routine Given 02/17/2024 9:29 AM EDT 50 mg Given 02/17/2024 7:45 AM EDT 100 mg documented in this encounter Care Teams Phonograph Needle Tip Maker Relationship Specialty Start Date End Date Vanessa Christian APRN PCP - General Family Medicine 10/21/23 documented as of this encounter
--- OUTSIDE RECORDS SUMMARY | 2024-05-06 08:36 | XMS_ITS | Encounter Summary ---
Author Organization [facility] [place] [address] Care Team Providers Care Adobe Block Maker Name Role Phone Vanessa Christian APRN Primary Care Provider [phone] Encounter Details Date Type Department Care Team (Late st Contact Info) Description 10/21/2023 Abstract Cardiology at [address] [phone] Adam Mayes RN Social History Tobacco Use [...] 11:00 AM EDT Office Visit Cardiology at [address] [phone] Neftali Ernandez MD [facility] [place] [address] documented as of this encounter Visit Diagnoses Not on filedocumented in this encounter Care Teams Adobe Block Maker Relationship Specialty Start Date End Date Vanessa Christian APRN PCP - General Family Medicine 10/21/23 documented as of this encounter
--- OUTSIDE RECORDS SUMMARY | 2024-05-06 08:36 | XMS_ITS | Encounter Summary ---
Author Organization [facility] [place] [address] Care Team Providers Care Concrete Swimming Pool Installer Name Role Phone Vanessa Christian MAURI Primary Care Provider [phone] Encounter Details Date Type Department Care Team (Late st Contact Info) Description 01/10/2024 Orders Only Claim Review [place] [phone] Lawson Napoles PA [facility] [place] [address] Screening for cardiovascular condition; Aortic valve stenosis, etiology of cardiac valve disease unspecified Social History Tobacco Use Types Packs/Day Years [...] 11:00 AM EDT Office Visit Cardiology at [address] [place] [phone] Neftali Ernandez MD [facility]OLOG[facility] [place] [address] documented as of this encounter Visit Diagnoses Diagnosis Screening for cardiovascular condition Screening for other and unspecified cardiovascular conditions Aortic valve stenosis, etiology of cardiac valve disease unspecified documented in this encounter Care Teams Concrete Swimming Pool Installer Relationship Specialty Start Date End Date Vanessa Christian APRN PCP - General Family Medicine 10/21/23 documented as of this encounter
--- OUTSIDE RECORDS SUMMARY | 2024-05-06 08:36 | XMS_ITS | Encounter Summary ---
Author Organization [facility] [place] [address] Care Team Providers Care Sensor Technician Name Role Phone Vanessa Christian APRN Primary Care Provider [phone] Encounter Details Date Type Department Care Team (Latest Contact Info) Description 10/21/2023 Travel Social History Tobacco Use Types Packs/Day [...] 11:00 AM EDT Office Visit Cardiology at [address] [place] [phone] Neftali Ernandez MD [facility] [place] [address] documented as of this encounter Visit Diagnoses Not on filedocumented in this encounter Care Teams Sensor Technician Relationship Specialty Start Date End Date Vanessa Christian APRN PCP - General Family Medicine 10/21/23 documented as of this encounter
--- OUTSIDE RECORDS SUMMARY | 2024-05-06 08:36 | XMS_ITS | Encounter Summary ---
Author Organization [facility] [place] [address] Care Team Providers Care Curing Oven Tender Name Role Phone Vanessa Christian Lane DOTSON Primary Care Provider [phone] Reason for Referral * Diagnostic Test (Routine) - Closed Specialty Diagnoses / Procedures Referred By Contac t Referred To Contact Radiology Diagnoses Nonrheumatic aortic valve stenosis Procedures CT Chest wo Contrast (Generic) Louisa Cho PA [facility] DR CARDIOTHORACIC [place] [address] [facility] [place] [address] Referral ID Status Reason Start Date Expiration Date V isits Requested Visits Authorized [id number] Closed Specialty Service Requested 01/10/2024 07/11/2025 1 1 Reason for Visit * Diagnostic Test (Routine) - Closed Specialty Diagnoses / Procedures Referred By Contac t Referred To Contact Radiology Diagnoses Nonrheumatic aortic valve stenosis Procedures CT Chest wo Contrast (Generic) Louisa Cho PA [facility] CARDIOTHORACIC [place] [address] [facility] [place] [address] Referral ID Status Reason Start Date Expiration Date V isits Requested Visits Authorized [id number] Closed Specialty Service Requested 01/10/2024 07/11/2025 1 1 Encounter Details Date Type Department Care Team (Latest Contact Info) Description 02/03/2024 7:36 AM EDT - 02/03/2024 8:05 AM EDT Hospital Encounter CT Scan at [facility] [place] [address] Zak Farmer MD [facility] CARDIOTHORACIC [place] [address] Nonrheumatic aortic valve stenosis Discharge Disposition: Home Social History Tobacco Use Types Packs/Day Years Used Date Smoking Tobacco: Former Cigarettes Smokeless Tobacco: Never Comments:Quit 15 + years ago Alcohol Use Standard Drinks/Week Comments Yes 0 (1 standard drink = 0.6 oz pur e alcohol) rare [facility] Inpatient Questions Answer Date Recorded Does Anyone [...] 11:00 AM EDT Office Visit Cardiology at [address] [place] [address] Neftali Ernandez MD [facility] [place] [address] documented as of this encounter Procedures Procedure Name Priority Date/Time Associated Diagnosis Comments CT CHEST WO CONTRAST (GENERIC) Routine 02/03/2024 7:44 AM EDT Nonrheumatic aortic valve stenosis documented in this encounter Results * CT Chest wo Contrast (Generic) (02/03/2024 7:44 AM EDT) [employer] WORKSTATION ID [id number] RAD Anatomical Region Laterality Modality Chest Computed [...] who have questions please contact the health congregational care pastor that requested your imaging first. ? Electronically signed by: Rogerio Wright MD, [facility] ([phone]), at 02/03/2024 10:00 AM Narrative 02/03/2024 10:00 AM EDT EXAMINATION: CT [...] nodule along the minor fissure (series [id number]) and a 8 mm right lower lobe [...] patients who have questions please contactthe health congregational care pastor that requested your imaging first. Electronically signed by: Rogerio Wright MD, [facility]([phone]), at 02/03/2024 10:00 AM Zak Farmer MD IMG CT ORDERABLES documented in this encounter Visit Diagnoses Diagnosis Nonrheumatic aortic valve stenosis Aortic valve disorders documented in this encounter Care Teams Curing Oven Tender Relationship Specialty Start Date End Date Vanessa Christian APRN PCP - General Family Medicine 10/21/23 documented as of this encounter
--- OUTSIDE RECORDS SUMMARY | 2024-05-06 08:36 | XMS_ITS | Continuity of Care Document ---
Author Organization [facility] Address [address] [place] [address] Care Team Providers Care Travel Agent Name Role Phone VANESSA JORDAN Primary Care Provider [phone] Assessment No assessment recorded. Plan of Treatment Reminders Order Date Submit Date Provider Last Modified By Organization Details Last Modified Time Details Appointments None record ed. Lab None record ed. Referral None record ed. Procedures None record ed. Surgeries None record ed. Imaging None record ed. Medication Orders None record ed. Patient TargetsNo targets recorded. Patient InstructionsNo instructions recorded. Reason for Referral Build Engineer Referral for Roland ateral hearing loss Referring Physician: Vanessa Jordan, Family Medicine, Encounter Date: 02/26/2024 Problems Name Status Onset Date Resolution Date Notes Provider Name and Address Organization Details Recorded Time Gastroesophageal reflux disease without esophagitis Active 2022 Problem Code: K21.9; Problem Code Type: ICD-10; Not Available [facility] 4 05:35:57 Glaucoma Active 2022 Problem Code: H40.9; Problem Code Type: ICD-10; Not Available [facility] 4 05:35:57 Hyperlipidemia Active 2022 Problem Code: E78.5; Problem Code Type: ICD-10; Not Available [facility] 4 05:35:57 Essential hypertension Active 2022 Problem Code: I10; Problem Code Type: ICD-10; Not Available [facility] 4 05:35:57 Pain of left hip joint Active 2022 Problem Code: M25.552; Problem Code Type: ICD-10; Not Available [facility] 4 05:35:57 Idiopathic osteoarthritis Active 2022 Problem Code: M16.12; Problem Code Type: ICD-10; Not Available [facility] 4 05:35:57 Inguinal hernia Active 2022 Problem Code: K40.90; Problem Code Type: ICD-10; Not Available [facility] 4 05:35:57 Heart murmur Active 2022 Problem Code: R01.1; Problem Code Type: ICD-10; Not Available [facility] 4 05:35:57 Dyspnea Active 2022 Problem Code: R06.09; Problem Code Type: ICD-10; Not Available [facility] 4 05:35:57 Chest pain Active 2022 Problem Code: R07.89; Problem Code Type: ICD-10; Not Available [facility] 4 05:35:57 Melanocytic nevus Active 2022 Problem Code: D22.9; Problem Code Type: ICD-10; Not Available [facility] 4 05:35:57 Aortic stenosis, non-rheumatic Active 2022 Problem Code: I35.0; Problem Code Type: ICD-10; Not Available [facility] 4 05:35:58 Aortic stenosis, non-rheumatic Completed 202208/14/2023 Problem Code: I35.0; Problem Code Type: ICD-10; Not Available [facility] 4 05:35:58 Indigestion Active 2023 GLORIA CAMP LPN null, [facility] 4 08:48:57 Coronary artery bypass grafts x 3 Active 2023 Kelly Duran RN null, [facility] 4 10:30:01 At increased risk of atrial fibrillation Active 2023 TATYANA LEDEZMA MD [address], [place], [address] , [facility]. 4 13:52:01 Anemia Active 2023 TATYANA LEDEZMA MD [address], [place], [address] , [facility] 13:54:39 Problem Notes None recorded. Procedures Surgical History Date Name Laterality Status Provider Name and Address Organization Details Recorded Time coronary artery bypass graft completed Hudson Reeder MA [facility], [facility] 03/04/2024 14:54:09 Imaging Results None recorded. Procedure Notes None recorded. Medical Equipment None Reported. Allergies No known drug allergies Medications Name Sig Start Date Stop Date Status Note LastModified by Organization Details LastModified Time Prescript ion - Renewal active Not Available Not Available Not Available multivita min tablet Take 1 tablet by mouth once a day active Not Available Not Available No t Available amoxicill in 500 mg capsule Take 4 capsules as needed by oral route as directed . active for dental procedur es. Take 1 hr prior. Started by [facility]. Not Available Not Available Not Available doxycycli ne hyclate 100 mg capsule TAKE 1 CAPSULE BY MOUTH TWICE DAILY 09/19 completed Not Available Not Available Not Available atorvasta tin 10 mg tablet Take 1 tablet by mouth every night 2023 active Not Available Not Available Not Avai lable metoprolo l tartrate 100 mg tablet TAKE 1 TABLET BY MOUTH TWICE DAILY active Not Available Not Available No t Available aspirin 81 mg tablet,de layed release Take 1 tablet every day by oral route. 12/17 completed Not Available Not Available Not Available amoxicill in 500 mg tablet TAKE ONE TABLET BY MOUTH THREE TIMES A DAY UNTIL GONE 09/19 completed Not Available Not Available Not Available tamsulosi n 0.4 mg capsule TAKE 1 CAPSULE BY MOUTH DAILY active Not Available Not Available No t Available lisinopri l 10 mg tablet TAKE 1 TABLET BY MOUTH DAILY 02/24 completed stopped by [facility] Not Available Not Available Not Available brimonidi ne 0.2 % eye drops INSTILL 1 DROP IN BOTH EYES TWICE DAILY active Not Available Not Available No t Available omeprazol e 20 mg capsule,d elayed release Take 1 capsule every day by oral route. active Not Available Not Available No t Available Tylenol 325 mg tablet Take 3 tablets every 6 hours by oral route as needed. active [facility] Not Available Not Available No t Available Aspirin Childrens 81 mg chewable tablet Take 1 tablet by mouth once a day active Not Available Not Available No t Available lisinopri l 5 mg tablet TAKE 1 TABLET BY MOUTH EVERY DAY 02/24 completed stopped by [facility] Not Available Not Available Not Available mupirocin 2 % topical ointment APPLY SMALL AMOUNT TOPICALL Y IN EACH NOSTRIL TWICE DAILY. BEGIN 5 DAYS BEFORE THE DAY OF SURGERY 03/06 completed Not Available Not Available Not Available timolol maleate 0.5 % eye drops INSTILL 1 DROP IN BOTH EYES TWICE DAILY 02/24 completed duplicat e Not Available Not Available Not Available SF 5000 Plus 1.1 % dental cream Use as directed use as directed 2022 active Dental prescrip tion Not Available Not Available Not Available dorzolami de 2 % eye drops INSTILL 1 DROP INTO BOTH EYES TWICE A DAY active Not Available Not Available No t Available timolol maleate 0.5 % once daily eye drops 1 drop both eyes daily active Not Available Not Available No t Available Vitamin C Take 1 tablet daily active Not Available Not Available No t Available Co Q-10 Take 1 tablet daily active Not Available Not Available No t Available collagen Take 2 tablets daily active Not Available Not Available No t Available apixaban 5 mg tablet Take 1 tablet twice a day by oral route. active started by [facility] Not Available Not Available Not Available dorzolami de 2 % (PF) eye drops 1 drop both eyes bid 12/17 completed Not Available Not Available Not Available Vitals Date Recorded Body height Body mass index (BMI) Body weight Heart rate Oxygen saturation Oxygen saturation in Arterial blood by Pulse oximetry Systolic blood pressure Diastolic blood pressure Provider Name and Address Organization Details Last Updated DateTime 4 167.64 cm 22.6 kg/m2 06487.6 5 g 63 /min 99 % 99 % 102 mm[Hg] 54 mm[Hg] Hudson Reeder MA [facility] 10:27:28 Social History Question Answer Notes LastModified by Organizat ion Details LastModified Time Tobacco Smoking Status Former Smoker Hudson Reeder MA null, [facility] 03/06/2024 10:24:50 Do You Have An Advance Directive? Yes Registered 08/15/23 Updated 01/12/24 Information not available 01/15/2024 When Did You Quit Smoking? 11-15years sincelastc igarette [email or web address] Information not available 03/06/2024 Do You Have A Medical Power Of Personal Service Representative? Yes Received 08/30/23, Scanned. Copies Sent To [facility] And Patient 09/02/23. Information not available 09/02/2023 What Was The Date Of Your Most Recent Tobacco Screening? 03/06/2024 [email or web address] Information not available 03/06/2024 What Is Your Current Pack Years? 30ormorepa ckyears [email or web address] Information not available 03/06/2024 How Much Tobacco Do You Smoke? 1 PPD [email or web address] Information not available 03/06/2024 How Many Years Have You Smoked Tobacco? 40 [email or web address] Information not available 03/06/2024 Do You Or Have You Ever Used Any Other Forms Of Tobacco Or Nicotine? No [email or web address] Information not available 03/06/2024 Sex: Male Functional Status None recorded. Mental Status None recorded. Family History Relationship Description Onset Age of this Age Resolved Age Notes Father Family history of stroke Notes:*Problem: Father: stro ke in 60s- survived. HTN in his 70s Mother: Asthma, at 80. sister: age 74 A+W sister: age 72 A+W sister age 70 A+W brother age 65 A+W MGF: emphysema/asthma one child that is living dtr age 39 A+W Medical History No medical history recorded. Immunizations Vaccine Type Date Status Provider Name and Address Organization Details Recorded Time Tdap 08/26/2013 completed Not Available [facility] 05:30:17 Td(adult) unspecified formulation 11/21/2022 completed Not Available [facility] 10/18/2023 05:30:17 COVID-19, mRNA, LNP-S, PF, 100 mcg/0.5mL dose or 50 mcg/0.25mL dose 01/24/2021 completed Not Available [facility] 10/18/19 05:30:18 COVID-19, mRNA, LNP-S, PF, 100 mcg/0.5mL dose or 50 mcg/0.25mL dose 02/21/2021 completed Not Available [facility] 10/18/19 05:30:18 COVID-19, mRNA, LNP-S, PF, 100 mcg/0.5mL dose or 50 mcg/0.25mL dose 09/11/2021 completed Not Available [facility] 10/18/19 05:30:18 influenza, unspecified formulation 07/26/2021 completed Not Available [facility] 10/18/2023 05:30:18 influenza, unspecified formulation 07/26/2022 completed Not Available [facility] 10/18/2023 05:30:18 influenza, unspecified formulation 07/28/2020 completed Not Available [facility] 10/18/2023 05:30:18 influenza, unspecified formulation 08/05/2019 completed Not Available [facility] 10/18/2023 05:30:18 influenza, unspecified formulation 08/12/2018 completed Not Available [facility] 10/18/2023 05:30:18 Past Encounters Encounter ID Performer Location Encounter Start Date Encounter Closed Date Diagnosis/Indication Diagnosis SNOMED-CT Code [id number] TATYANA LEDEZMA MD [address] [address] 03/06/2024 10:15:07 03/06/2024 11:14:28 Postoperative visit 760347258 Aortic rosa m nosis, non-rheumatic 858113736 Stented co ronary artery 645292365 [facility] risk of atrial fibrillation 710050241 Anemia 349285401 Health Concerns Section Related Observation LastModified by Organization Detai ls LastModified Time None Recorded Concern Status LastModified by Organization Details LastModified Time None Recorded Payers Encounter Date Sequence Insurance Name Policy Number Policy Alicia Covered Member ID Alicia Member ID Guarantor Name 03/06/2024 1 R [id number] Karlos Jessica Patenaude [id number] Karlos Anthony Notes Date Note Type Note Provider Name and Address Organization Details Recorded Time 03/06/2024 text/html HPI Notes: Ana Paula marlow is here today for a postop evaluation MD [address], [place], [address], [facility]. 03/08/2024 13:57:34
--- OUTSIDE RECORDS SUMMARY | 2024-05-06 08:36 | XMS_ITS | Encounter Summary ---
[facility] Organization [facility] [place] [address] Care Team Providers Care Oil Truck Driver Name Role Phone Vanessa Christian Lane DOTSON Primary Care Provider [phone] Encounter Details Date Type Department Care Team (Late st Contact Info) Description 01/09/2024 2:30 PM EDT Clinical Support Same Day at [facility] [place] [id number] Social History Tobacco Use Types Packs/Day Years Used Date Smoking Tobacco: Former Cigarettes Smokeless Tobacco: Never Comments:Quit 15 + years ago Alcohol Use Standard Drinks/Week Comments Yes 0 (1 standard drink = 0.6 oz pur e alcohol) rare [facility] Inpatient Questions Answer Date Recorded Prevent Contact [...] as of this encounter Progress Notes * Saba Reed RN - 01/09/2024 2:30 PM EDT Abbreviated anesthesia health history questionnaire reviewed with patient while in the [facility]. Pre-operative instruction booklet reviewed with patient. Reviewed importance of pain control and cough and deep breathing exercise during the post-operative period. Instructed patient on use of Hibiclens soap to shower with the night before surgery or the morning of surgery. Pt verbalizes a good understanding of all information reviewed. Patient given the cardiac packet with a booklet called A Patient's Guide to Cardiac Surgery along with a you tube link for a video about [facility] cardiac surgery. Instructed to bring the booklet back in on the day of surgery, as it will be used daily by the inpatient nurses caring for them, to review all of their teaching needs each day that they are here in the hospital. Has not had COVID or COVID symptoms in the past 4 weeks. PLAN Testing: Blood work and type and screen performed while in the [facility]. Sent to Radiology for chest x-ray. Special medication instructions: None Procedure date: not booked. Darian documented in this encounter Plan of Treatment Upcoming Encounters Date Type Department Care Team (Late st Contact Info) Description 05/27/2024 11:00 AM EDT Office Visit Cardiology at [address] [id number] Neftali Ernandez MD [facility] [place] [address] documented as of this encounter Visit Diagnoses Not on filedocumented in this encounter Care Teams Oil Truck Driver Relationship Specialty Start Date End Date Vanessa Christian APRN PCP - General Family Medicine 10/21/23 documented as of this encounter
--- OUTSIDE RECORDS SUMMARY | 2024-05-06 08:36 | XMS_ITS | Encounter Summary ---
Author Organization [facility] [place] [address] Care Team Providers Care Granite Sandblaster Apprentice Name Role Phone Vanessa Christian MAURI Primary Care Provider [phone] Reason for Visit * Auth/Cert (Routine) Specialty [...] W RHC (WRVU 5.9) Rima Dickinson MD [facility] [place] [address] [facility] Referral ID Status Reason Start Date Expiration Date Visits Re quested Visits Authorized [id number] 1 1 Encounter Details Date Type Department Care Team (Latest Contact Info) Description 02/03/2024 8:06 AM EDT - 02/03/2024 2:54 PM EDT Hospital Encounter [place] [address] Rima Dickinson MD [facility] [place] [address] Screening for cardiovascular condition; Aortic valve stenosis, etiology of cardiac valve disease unspecified; Nonrheumatic aortic valve stenosis Discharge Disposition: Home [...] Sign Reading Time Taken Comments Blood Pressure 150/73 02/03/2024 2:30 PM EDT Pulse 81 02/03/2024 2:30 PM EDT Temperature 36.8 ??C (98.2 ??F) 02/03/2024 10:28 AM E DT Respiratory Rate 24 02/03/2024 2:30 PM EDT Oxygen Saturation 98% 02/03/2024 2:30 PM EDT Inhaled Oxygen Concentration - - [...] lbs Follow-up Visits Follow up with your geological aide in 2-4 weeks Access Site 'Black and Blue' and tenderness is expected during the first week Call if you noted a mass (lump) greater than the size of a ellis Call Office with any Questions and if you have any of the following Clarence Lane M.D Interventional Chief Reservoir Engineering [employer] Security Assessment #: [phone] * Attachments The following attachments cannot be sent through Care Everywhere. * CAD (Coronary Artery Disease): General Info (Tongan) * Coronary Angiogram: Post-op (Tongan) documented in this encounter Medications at Time [...] Lane MD - 02/03/2024 11:48 AM EDT [facility] Interventional Cardiology Adult Pre-Procedure H&P Update: Cardiac Catheterization Karlos Anthony [id number] 1960 Chief Complaint: Aortic stenosis HPI: Mr. [...] is inthe chart Clarence Lane MD Interventional Chief Reservoir Engineering 02/03/24 11:48 AM documented in this encounter Miscellaneous Notes * Brief Op Note - Clarence Lane MD - 02/03/2024 12:51 PM EDT Preliminary Cardiac Catheterization Procedure Note: Patient Name: Karlos Anthony : [id number] MR#: [id number] Case Date: 02/03/2024 [employer] Security Assessment: Surgeon(s) and Role: * Saira Lua MD [...] 11:00 AM EDT Office Visit Cardiology at [address] [place] [address] Neftali Ernandez MD [facility] [address] Scheduled Orders Name Type Priority Associated Diagnoses [...] Modality Other Narrative 02/12/2024 3:47 PM EDT ?[facility] ? Cardiac Catheterization/Intervention Report ? Patient Name: Karlos Anthony ? Procedure Date: 02/03/2024 ? A #: [id number] ? Primary Physician: Saira Lua ? Case #: [id number] ? File Name: [id number] ? Catheterization Order Number: [id number] ? [facility] ? Final Report [place], [place] ? Patient Name: ? Karlos Patenaude ? ID#: ?[id number] ? : ?1960 ? Procedure Date: ? February 03, 2024 ? Case #: ? [id number] ? Room: ? 5 ? Case Physician: ? Emad Mogadam, M.D. ? Start: ?12:29 ?Fellow: ? Clarence N Deepaka, M.D. ? Admission: ??02/03/2024 ? Referring Physician: ??Zak Farmer M.D. ? Procedures: ?* Coronary Angiography ? History [...] Procedure Note Saira Lua MD - 02/12/2024 [facility] Cardiac Catheterization/Intervention Report Patient Name: Karlos Anthony Procedure Date: 02/03/2024 A #: [id number] Primary Physician: Saira Lua Case #: [id number] File Name: [id number] Catheterization Order Number: [id number] [facility] FinalReport [place], [place] Patient Name: Karlos Anthony ID#:[id number] :1960 Procedure Date: February 03, 2024 Case #: [id number] Room: 5 Case Physician: Saira Lua M.D. Start: 12:29 Fellow: Clarence Lane M.D. Admission:02/03/2024 Referring Physician: Zak Farmer M.D. Procedures: * Coronary Angiography History Karlos Anthony is a 63 year old man. He has hypertension. Thepatient's smoking status is Never. He also has hypercholesterolemia managedwith lipid therapy. Prior to the initiation of this procedure, thepatient was designated as ASA Class III. The [facility] clinical frailty scale is 3: Managing [...] (Bezet) 372 ms MUSE SYSTEM Calculated P [place] 59 degrees MUSE SYSTEM Calculated R [place] 34 degrees MUSE SYSTEM Calculated T [place] 63 degrees MUSE SYSTEM INTERPRETATION Sinus bradycardia [...] MD) documented in this encounter Care Teams Granite Sandblaster Apprentice Relationship Specialty Start Date End Date Vanessa Christian APRN PCP - General Family Medicine 10/21/23 documented as of this encounter
--- OUTSIDE RECORDS SUMMARY | 2024-05-06 08:36 | XMS_ITS | Continuity of Care Document ---
Author Organization [facility] Address [address] [place] [address] Care Team Providers Care Jde Developer Name Role Phone Sachin Sainz Primary Care Physician [facility] Date(s[facility] 11/21/22 - 11/21/[address] [address] Encounter Diagnosis Increased urinary frequency(Discharge Diagnosis) - 11/21/22 Hyperlipidemia(Discharge Diagnosis) - 11/21/22 Discharge Disposition: Home or Self Care Attending Physician: Sachin Sainz DO Admitting Physician: Sachin Sainz DO Allergies, Adverse Reactions, [...] KNOW THE EXACT DATE.; Last modified by [email or web address] 11-09-2021, 15:35 Medications atorvastatin 10 mg oral tablet 1 tab, Oral, Daily, # 90 tab, 0 Refill(s), Pharmacy: [facility][id number] Start Date: 11/14/22 Status: Ordered brimonidine 0.2% ophthalmic solution 1 drops, Eye-Both, BID Start Date: 05/28/22 Status: Ordered dorzolamide 2% ophthalmic solution 1 drops, Eye-Both, BID Start Date: 05/28/22 Status: Ordered lisinopril 10 mg oral tablet 1 tab, Oral, Daily, # 90 tab, 0 Refill(s), Pharmacy: [facility] #[id number] Start Date: 11/14/22 Status: Ordered SF 5000 Plus 1.1% topical cream See Instructions, Use as directed. Start Date: 05/28/22 Status: Ordered tamsulosin 0.4 mg oral capsule 0.4 mg = 1 cap, Oral, Daily, # 30 cap, 0 Refill(s), Pharmacy: [facility] #[id number] Start Date: 11/20/22 Status: Ordered timolol maleate [...] Confirmed Active Annual physical exam Confirmed Active Results Laboratory List Name Date Comprehensive Metabolic Panel (CMP) 11/21 Lipid Panel 11/21/22 PSA Diagnostic 11/21/22 Most recent to oldest [Reference Range]: 1 BUN [7-18 mg/dL] 18 mg/dL (11/21/22 10:10 AM) Cholesterol Total [50-200 mg/dL] 151 mg/ dL (11/21/22 10:10 AM) LDL [0-130 mg/dL] 90 mg/dL (11/21/22 10:10 AM) Glucose Level [74-106 mg/dL] 93 mg/dL (11/21/22 10:10 AM) Potassium Level [3.5-5.1 mmol/L] 4.9 mmo l/L (11/21/22 10:10 AM) HDL [40-60 mg/dL] 36 mg/dL *LOW* (11/21/22 10:10 AM) AST [15-37 unit/L] 17 unit/L (11/21/22 10:10 AM) ALT [16-63 unit/L] 33 unit/L (11/21/22 10:10 AM) Sodium Level [136-145 mmol/L] 138 mmol/L (11/21/22 10:10 AM) Triglycerides [0-150 mg/dL] 123 mg/dL (11/21/22 10:10 AM) Calcium Level [8.5-10.1 mg/dL] 9.0 mg/dL (11/21/22 10:10 AM) Albumin Level [3.4-5.0 g/dL] 3.6 g/dL (11/21/22 10:10 AM) Protein Total [6.4-8.2 g/dL] 6.7 g/dL (11/21/22 10:10 AM) Bilirubin Total [0.2-1.0 mg/dL] 0.7 mg/d L (11/21/22 10:10 AM) Alk Phos [46-146 unit/L] 72 unit/L (11/21/22 10:10 AM) CO2 [21-32 mmol/L] 30 mmol/L (11/21/22 10:10 AM) PSA Total Diagnostic [0.00-4.00 ng/mL] 2 .27 ng/mL (11/21/22 10:10 AM) eGFR Non-AA [>=60] 98 (11/21/22 10:10 AM) eGFR AA [>=60] 98 (11/21/22 10:10 AM) Chloride Level [98-107 mmol/L] 104 mmol/ L (11/21/22 10:10 AM) Creatinine Level [0.70-1.30 mg/dL] 0.85 mg/dL (11/21/22 10:10 AM) Social History Social History Type Response Tobacco Former tobacco user Tobacco Use:. Sex Male Patient Care team information Care Team Personnel Name: Sachin Sainz DO Position: Physician Member Role: Primary Care Physician Address: Address: [place] [facility] [address]
== END 2024-05-06 23:59 | disposition home or self-care (01) ==
LOC: CR 08:32
PROVIDERS: PCP Nurse Practitioner Family; Visit Provider Internal Medicine Cardiovascular Disease
DX: I25.810 Atherosclerosis of coronary artery bypass graft(s) without angina pectoris (principal); Z95.5 Presence of coronary angioplasty implant and graft
CPT/HCPCS: S9472

== ENCOUNTER 2024-06-05 08:18 | Outpatient (RCR) | payer OTHER, SELFPAY ==
--- OUTSIDE RECORDS SUMMARY | 2024-05-08 08:03 | XMS_ITS | Encounter Summary ---
Author Organization [facility] Address [facility] [place] [address] Care Team Providers Care Home Health Nurse Licensed Practical Name Role Phone Vanessa Christian MAURI Primary Care Provider [phone] Encounter Details Date Type Department Care Team (Latest Contact Info) Description 03/12/2024 1:30 PM EDT - 03/12/2024 11:59 PM EDT Hospital Encounter XRay at [address] [place] [address] Coronary artery disease, unspecified vessel or lesion type, unspecified whether angina present, unspecified whether [place] or transplanted heart Discharge Disposition: Home Social History Tobacco Use Types Packs/Day Years Used Date Smoking Tobacco: Former Cigarettes Smokeless Tobacco: Never Comments:Quit 15 + years ago Alcohol Use Standard Drinks/Week Comments Yes 0 (1 standard drink = 0.6 oz pur e alcohol) rare [facility] Utilities Answer Date Recorded In the past 12 months has e [employer], gas, oil, or water [employer] threatened to shut off services in your [...] place to sleep or slept in a prison (including now)? No 02/18/2024 DH IPV Inpatient [...] 11:00 AM EDT Office Visit Cardiology at [address] [place] [address] Neftali Ernandez MD [facility] [place] [address] documented as of this encounter Procedures Procedure Name Priority Date/Time Associated Diagnosis Comments XR CHEST PA AND LATERAL Routine 03/12/2024 1:42 PM EDT Coronary artery disease, unspecified vessel or lesion type, unspecified whether angina present, unspecified whether [place] or transplanted heart documented in this encounter Results * XR Chest PA & Lateral (Generic) (03/12/2024 1:42 PM EDT) WORKSTATION ID [id number] RAD Anatomical Region Laterality Modality Chest N/A [...] who have questions please contact the health nurse behavioral health care that requested your imaging first. ? Narrative 03/13/2024 8:28 AM EDT EXAMINATION: XR CHEST PA AND LATERAL (GENERIC) CLINICAL HISTORY: s/p cabg eval effusions I25.10, Atherosclerotic heart disease of [place] coronary artery without angina pectoris TECHNIQUE: PA [...] eval effusions I25.10, Atherosclerotic heart disease of [place] coronary artery withoutangina pectoris TECHNIQUE: PA and [...] patients who have questions please contactthe health nurse behavioral health care that requested your imaging first. Zak Farmer MD IMG DX ORDERABLES documented in this encounter Visit Diagnoses Diagnosis Coronary artery disease, unspecified vessel or lesion type, unspecified whether angina present, unspecified whether [place] or transplanted heart documented in this encounter Care Teams Home Health Nurse Licensed Practical Relationship Specialty Start Date End Date Vanessa Christian APRN PCP - General Family Medicine 10/21/23 documented as of this encounter
--- OUTSIDE RECORDS SUMMARY | 2024-05-08 08:03 | XMS_ITS | Clinical Summary ---
Author Organization [facility] Address [address] [place] [address] Care Team Providers Care Carpenter Streetcar Name Role Phone Vanessa Christian NP Primary Care Provider [phone] Social History Tobacco Use Types Packs/Day Years [...] COVID-19 Vaccine (2022-24 season) [address] Relationship Specialty Start Date End Date Vanessa Christian NP [address] [place] [id number] PCP - General Family Medicine - Primary Care 10/07/23
--- OUTSIDE RECORDS SUMMARY | 2024-05-08 08:03 | XMS_ITS | Encounter Summary ---
Author Organization [facility] Address [facility] [place] [address] Care Team Providers Care Wash Box Operator Name Role Phone Vanessa Christian MAURI Primary Care Provider [phone] Encounter Details Date Type Department Care Team [...] place to sleep or slept in a custodial (including now)? No 02/18/2024 DH IPV Inpatient [...] 11:00 AM EDT Office Visit Cardiology at [address] [place] [phone] Neftali Ernandez MD [facility] [place] [place] [address] documented as of this encounter Visit Diagnoses Not on filedocumented in this encounter Care Teams Wash Box Operator Relationship Specialty Start Date End Date Vanessa Christian APRN PCP - General Family Medicine 10/21/23 documented as of this encounter
--- OUTSIDE RECORDS SUMMARY | 2024-05-08 08:03 | XMS_ITS | Encounter Summary ---
Author Organization [facility] Address [facility] [place] [place] [address] Care Team Providers Care Make Up Artist Name Role Phone Gino Vanessa Lane DOTSON Primary Care Provider [phone] Encounter Details Date Type Department Care Team (Late st Contact Info) Description 02/24/2024 Orders Only Cardiac Surgery [facility] [place] [phone] Trudi Lester APRN [facility] [place] [address] Social History Tobacco Use Types Packs/Day Years Used Date Smoking Tobacco: Former Cigarettes Smokeless Tobacco: Never Comments:Quit 15 + years ago Alcohol Use Standard Drinks/Week Comments Yes 0 (1 standard drink = 0.6 oz pur e alcohol) rare [facility] Utilities Answer Date Recorded In the past 12 months has e [employer], gas, oil, or water [employer] threatened to shut off services in your [...] 11:00 AM EDT Office Visit Cardiology at [address] [place] [address] Neftali Ernandez MD [facility] [place] [address] documented as of this encounter Visit Diagnoses Not on filedocumented in this encounter Care Teams Make Up Artist Relationship Specialty Start Date End Date Vanessa Christian APRN PCP - General Family Medicine 10/21/23 documented as of this encounter
--- OUTSIDE RECORDS SUMMARY | 2024-05-08 08:03 | XMS_ITS | Encounter Summary ---
Author Organization [facility] Address [facility] [place] [address] Care Team Providers Care Skiff Operator Name Role Phone Vanessa Christian MAURI Primary Care Provider [phone] Encounter Details Date Type Department Care Team (Late st Contact Info) Description 03/12/2024 2:40 PM EDT Office Visit [place] [phone] Zak Farmer MD [facility] [place] [address] Coronary artery disease, unspecified vessel or lesion type, unspecified whether angina present, unspecified whether crow or transplanted heart Social History Tobacco Use Types Packs/Day Years Used Date Smoking Tobacco: Former Cigarettes Smokeless Tobacco: Never Comments:Quit 15 + years ago Alcohol Use Standard Drinks/Week Comments Yes 0 (1 standard drink = 0.6 oz pur e alcohol) rare [facility] Utilities Answer Date Recorded In the past 12 months has e [employer], gas, oil, or water [employer] threatened to shut off services in your [...] place to sleep or slept in a retirement (including now)? No 02/18/2024 DH IPV Inpatient [...] 2:40 PM EDT To: MD Vanessa Coles, HOME HEALTH SPEECH THERAPIST Re; Karlos Santa ( 1960) We had [...] office. Best personal regards, Zak Farmer MD [phone] documented in this encounter Plan of Treatment Upcoming Encounters Date Type Department Care Team (Late st Contact Info) Description 05/27/2024 11:00 AM EDT Office Visit Cardiology at [address] [place] [address] Neftali Ernandez MD [facility] [place] [address] documented as of this encounter Procedures Procedure Name Priority Date/Time Associated Diagnosis Comments EKG 12-LEAD Routine 03/12/2024 2:35 PM EDT Coronary artery disease, unspecified vessel or lesion type, unspecified whether angina present, unspecified whether crow or transplanted heart documented in this encounter Results * EKG 12 Lead (03/12/2024 2:35 PM EDT) Ventricular rate 59 BPM MUSE SYSTEM Atrial Rate 59 BPM MUSE SYSTEM P-R Interval 190 ms MUSE SYSTEM QRS Duration 92 ms MUSE SYSTEM Q-T Interval 406 ms MUSE SYSTEM QTC Calculated (Bezet) 401 ms MUSE SYSTEM Calculated P [place] -12 degrees MUSE SYSTEM Calculated R [place] 24 degrees MUSE SYSTEM Calculated T [place] 74 degrees MUSE SYSTEM INTERPRETATION Sinus bradycardia T wave abnormality, consider anterior ischemia Abnormal ECG When compared with ECG of 17-FEB-2024 13:24, [place] interval has decreased T wave inversion now evident in Anterior leads Confirmed by Paul Guzman ([id number]) on 03/15/2024 8:36:23 AM MUSE SYSTEM 03/12/2024 2:35 PM EDT 03/15/2024 8:36 AM EDT Zak Farmer MD ECG ORDERABLES MUSE SYSTEM documented in this encounter Visit Diagnoses Diagnosis Coronary artery disease, unspecified vessel or lesion type, unspecified whether angina present, unspecified whether crow or transplanted heart documented in this encounter Care Teams Skiff Operator Relationship Specialty Start Date End Date Vanessa Christian, MAURI PCP - General Family Medicine 10/21/23 documented as of this encounter
--- OUTSIDE RECORDS SUMMARY | 2024-05-08 08:03 | XMS_ITS | Encounter Summary ---
Author Organization [facility] Address [address] [place] [address] Care Team Providers Care Patient Assistant Name Role Phone Vanessa Christian Lane MONCADA Primary Care Provider [phone] Encounter Details Date Type Department Care Team (Late st Contact Info) Description 10/24/2023 Lab Requisition [facility] Pathology & Laboratory Medicine - [address] [address] Oscar Nichole MD [address] [place] [phone] Factitial dermatitis Social History Tobacco Use Types [...] management options, if applicable. 10/28/2023 11:24 EST [facility] Final Diagnosis A. SKIN OF CONFUCIANISM, LEFT, SHAVE BIOPSY: - Seborrheic keratosis, pigmented. 10/28/2023 11:24 EST [facility] Attestation By the signature below, the attending physician certifies that they have 1) personally conducted a gross and/or microscopic examination of the described specimen(s), and/or personally interpreted the results of laboratory testing of the described specimen(s), and 2) personally rendered or confirmed the above diagnosis. 10/28/2023 11:24 [facility] at [address]4 Microscopic Description The stratum corneum is thickened by compact and basketweave orthokeratosis with formation of horn pseudocysts. The epidermis is acanthotic with formation of broad and anastomosing trabeculae. The trabeculae are composed of basaloid keratinocytes with round uniform nuclei. The keratinocytes have a variable amount of melanin pigment. 10/28/2023 11:24 [facility] Clinical History Pigmented 2 cm patch; clinical diagnosis code: L98.1 10/28/2023 11:24 [facility] Gross Description A. Received in formalin labelled with proper patient identification (initials P, A) and left faith is a shave biopsy of an irregular [...] A3. Nora Anderson 10/25/2023 8:47 10/28/2023 11:24 [facility] Performing Lab [facility] 10/28/2023 11:24 [facility] Scanned Images 10/28/2023 11:24 [facility] Tissue SPECIMEN FROM SKIN / Unknown 10/24/2023 14:30 EST 10/24/2023 22:04 EST Oscar Nichole MD PATHOLOGY ORDERABLES [facility] [address] [place] [address] documented in this encounter Visit Diagnoses Diagnosis Factitial dermatitis Dermatitis factitia (artefacta) documented in this encounter Care Teams Patient Assistant Relationship Specialty Start Date End Date Vanessa Christian NP [address] [place] [address] PCP - General Family Medicine - Primary Care 10/07/23 documented as of this encounter
--- OUTSIDE RECORDS SUMMARY | 2024-05-08 08:03 | XMS_ITS | Referral Summary ---
Author Organization [facility] Address [address] [place] [address] Care Team Providers Care Vocational Nurse Name Role Phone Filidayna Vanessa Sherman NP Primary Care Provider Social History Tobacco Use Types Packs/Day Years Used Date Smoking Tobacco: Never Assessed Sex and Gender Information Value Date Recorded Sex Assigned at Not on file Gender Identity Not on file Sexual Orientation Not on file Plan of Treatment Not on file Care Teams Vocational Nurse Relationship Specialty Start Date End Date Vanessa Christian NP [address] [place] [address] PCP - General Family Medicine - Primary Care 10/07/23
--- OUTSIDE RECORDS SUMMARY | 2024-05-08 08:03 | XMS_ITS | Clinical Summary ---
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 Logistics and preliminary review of TONY were reviewed with patient. - Refer to SHT Hypertension 08/14/2023 HLD (hyperlipidemia) 08/14/2023 Resolved Problems Problem Noted Date Diagnosed Date Resolved Date Chest pressure 08/14/2023 10/21/2023 SILVA (dyspnea on exertion) 08/14/2023 Encounters Date Type Department Care Team Description 03/12/2024 2:40 PM EDT Office [place] [address] Zak Farmer MD Coronary artery disease, unspecified vessel or lesion type, unspecified whether angina present, unspecified whether tonto apache or transplanted heart 03/12/2024 1:30 PM EDT - 03/12/2024 11:59 PM EDT Hospital Encounter XRay at [address] [place] [phone] Coronary artery disease, unspecified vessel or lesion type, unspecified whether angina present, unspecified whether tonto apache or transplanted heart Discharge Disposition: Home 03/12/2024 Travel 02/24/2024 Orders [place] [address] Trudi Lester APRN 02/17/2024 7:35 AM EDT Anesthesia Event [place] [address] Tara York MD 02/17/2024 7:30 AM EDT - 02/17/2024 1:26 PM EDT Surgery [place] [address] Zak Farmer MD ENDOSCOPIC HARVEST VEIN(S) FOR CABG (WRVU 0.31) 02/17/2024 5:43 AM EDT - 02/24/2024 11:23 AM EDT Hospital Encounter Heart and Vascular Unit Level 4 [place] [address] Zak Farmer MD S/P AVR (Primary Dx); Aortic valve stenosis, etiology of cardiac valve disease unspecified Discharge Disposition: Home with VNA 02/14/2024 Orders [place] [address] Zak Farmer MD Coronary artery disease, unspecified vessel or lesion type, unspecified whether angina present, unspecified whether tonto apache or transplanted heart (Primary Dx) from Last 3 Months Social History Tobacco Use Types Packs/Day Years Used Date Smoking Tobacco: Former Cigarettes Smokeless Tobacco: Never Comments:Quit 15 + years ago Alcohol Use Standard Drinks/Week Comments Yes 0 (1 standard drink = 0.6 oz pur e alcohol) rare [facility] Utilities Answer Date Recorded In the past 12 months has [employer], gas, oil, or water [place] threatened to shut off services in your [...] place to sleep or slept in a nursing home (including now)? No 02/18/2024 DH IPV [...] 11:00 AM EDT Office Visit Cardiology at [address] [place] [address] Neftali Ernandez MD [facility] [place] [address] Health Maintenance Due Date Last Done Comments [...] series) 06/07/2024 Medical Devices Implanted Type Area Flamer After Lasting Device Identifier Shelf Expiration Date Model / Serial / Lot Cable,Cut,Edg ,Blnt,Ss,3tpr ([id number]) - [id number] Implanted:Qty : 1 on 02/17/2024 by Zak Farmer MD at [facility] IMPLANTS Midline: Chest [employer] - [id number] 09/02/2028 [id number] / / [id number] Valve Coronary Aortic 23mm Tissue Trnscath Biopros Inspiris ([id number]) (Autoreq) - [id number] Implanted:Qty : 1 on 02/17/2024 by Zak Farmer MD at [facility] IMPLANTS Heart [employer] - TSAI LI 09/15/2027 [id number] 23MM / [id number] / Procedures Procedure Name Priority Date/Time Associated Diagnosis Comments EKG 12-LEAD Routine 03/12/2024 2:35 PM EDT Coronary artery disease, unspecified vessel or lesion type, unspecified whether angina present, unspecified whether tonto apache or transplanted heart XR CHEST PA AND LATERAL Routine 03/12/20 1:42 PM EDT Coronary artery disease, unspecified vessel or lesion type, unspecified whether angina present, unspecified whether tonto apache or transplanted heart SCAN DOC: TELEMETRY STRIPS [...] Aortic Valve Open W Cardiopulmonary Bypass Homogrf/Stent ([id number]) Yes 02/17/2024 7:28 AM EDT CAD Cabg, Artery-Vein, Two ([id number]) Yes 02/17/2024 7:28 AM EDT CAD Cabg, Arterial, Single ([id number]) Yes 02/17/2024 7:28 AM EDT CAD Endoscopy W/Video-Asst Vein [place], Cabg ([id number]) Yes 02/17/2024 7:28 AM EDT CAD POCT [...] (Bezet) 401 ms MUSE SYSTEM Calculated P [place] -12 degrees MUSE SYSTEM Calculated R [place] 24 degrees MUSE SYSTEM Calculated T [place] 74 degrees MUSE SYSTEM INTERPRETATION Sinus bradycardia T wave abnormality, consider anterior ischemia Abnormal ECG When compared with ECG of 17-FEB-2024 13:24, IA interval has decreased T wave inversion now evident in Anterior leads Confirmed by Paul Guzman ([id number]) on 03/15/2024 8:36:23 AM MUSE SYSTEM 03/12/2024 2:35 PM EDT 03/15/2024 8:36 AM EDT Zak Farmer MD ECG ORDERABLES MUSE SYSTEM * XR Chest PA & Lateral (Generic) (03/12/2024 1:42 PM EDT) Only the most recent of2 resultswithin the time period is included. WORKSTATION ID [id number] RAD Anatomical Region Laterality Modality Chest N/A [...] who have questions please contact the health resident care assistant that requested your imaging first. ? 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 Zak Farmer [...] included. Potassium 4.0 3.5 - 5.0 mmol/L [facility] Comment: Please note: ??Patients with WBC >100,000 may have falsely elevated Potassium levels. ??For accurate Potassium quantification in these patients send serum separator tube (gold top) for subsequent determinations. ??Contact the Clinical Chemistry Laboratory if there are any questions. Blood 02/24/2024 4:42 AM EDT 02/24/2024 4:59 AM EDT Narrative Resulting Agency Comment Spec In Lab Zak Farmer MD CHEMISTRY ORDERABLE S [facility] [place] [address] * (ABNORMAL) Basic Metabolic Panel (non-fasting) (02/23/2024 4:24 AM EDT) Only the most recent of4 resultswithin the time period is included. Glucose Lvl 117 65 - 199 mg/dL [facility] Comment:Diabetes: >=200 mg/d L plus symptoms BUN 18 10 - 20 mg/dL [facility] Creatinine 0.71(L) 0.80 - 1.50 mg/dL [facility] Sodium 138 135 - 145 mmol/L [facility] Potassium 4.4 3.5 - 5.0 mmol/L [facility] Comment: Please note: ??Patients with WBC >100,000 may have falsely elevated Potassium levels. ??For accurate Potassium quantification in these patients send serum separator tube (gold top) for subsequent determinations. ??Contact the Clinical Chemistry Laboratory if there are any questions. Chloride 101 98 - 107 mmol/L [facility] CO2 26 22 - 31 mmol/L [facility] Anion Gap 11 5 - 15 mmol/L [facility] Calcium 8.8 8.5 - 10.5 mg/dL [facility] Estimated GFR 102 >=60 mL/min/1. 73 m?? [facility] Comment: This patient's estimated GFR [...] In Lab Romeo Carpio MD CHEMISTRY ORDERABLES [facility] [place] [address] * Lactate, whole blood, send to lab ([facility] (02/21/2024 9:45 AM EDT) Lactate WB 2.0 0.5 - 2.2 mmol/L [facility] Blood 02/21/2024 9:45 AM EDT 02/21/2024 9:52 AM EDT Narrative Resulting Agency Comment Spec In Lab Zak Farmer MD CHEMISTRY ORDERABLE S [facility] [place] [address] * Lipase (02/21/2024 9:45 AM EDT) Lipase 56 0 - 60 unit/L [facility] Blood 02/21/2024 9:45 AM EDT 02/21/2024 9:52 AM EDT Narrative Resulting Agency Comment Spec In Lab Zak Farmer MD CHEMISTRY ORDERABLE S Performing Organization Address [facility]/ZIP Co de Phone Number [facility] [place] [address] * Amylase (02/21/2024 9:45 AM EDT) Pathologist [facility] Amylase 69 28 - 100 unit/L [facility] Blood 02/21/2024 9:45 AM EDT 02/21/2024 9:52 AM EDT Narrative Resulting Agency Comment Spec In Lab Zak Farmer MD CHEMISTRY ORDERABLE S Performing Organization Address City/[facility] Co de Phone Number [facility] [place] [address] * (ABNORMAL) Hepatic Function Panel (02/21/2024 9:45 AM EDT) Pathologist [facility] Total Protein 5.7(L) 6.1 - 8.0 g/dL [facility] Albumin 3.3 3.2 - 5.2 g/dL [facility] AST 13 0 - 39 unit/L [facility] ALT 16 0 - 55 unit/L [facility] Alk Phos 63 40 - 130 unit/L [facility] Total Bilirubin 0.6 0.2 - 1.3 mg/dL [facility] Bili, Direct 0.2 0.0 - 0.3 mg/dL [facility] Blood 02/21/2024 9:45 AM EDT 02/21/2024 9:52 AM EDT Narrative Resulting Agency Comment Spec In Lab Zak Farmer MD CHEMISTRY ORDERABLE S [facility] [place] [address] * Scan, Peripheral Blood (02/20/2024 4:23 AM EDT) Only the most recent of2 resultswithin the time period is included. Plat Estimate Decreased [facility] RBC Morphology Normal [facility] Blood 02/20/2024 4:23 AM EDT 02/20/2024 4:42 AM EDT Narrative Resulting Agency Comment Spec In Lab Minnie FRENCH HEMATOLOGY CECILIO ALEMAN Performing Organization Address City/[facility]/ZIP Co de Phone Number [facility] [place] [address] * (ABNORMAL) Hemogram (02/20/2024 4:23 AM EDT) Only the most recent of3 resultswithin the time period is included. WBC 12.7(H) 4.0 - 9.5 x10(3)/[facility] LABORATORY RBC 4.26(L) 4.58 - 5.54 x10(6)/[facility]ORY Hemoglobin 12.3(L) 13.7 - 16.5 g/dL [facility] Hematocrit 37.1(L) 40.5 - 48.5 % [facility] MCV 87.1 82.9 - 93.1 [facility] LABORATORY MCH 28.9 27.5 - 32.1 pg [facility] MCHC 33.2 32.0 - 35.7 g/dL [facility] Platelets 88(L) 145 - 357 x10(3)/[facility] LABORATORY RDWSD 43.5 36.0 - 45.0 fL [facility] RDWCV 13.7 11.4 - 13.8 % [facility] MPV 10.2 7.6 - 12.9 fL [facility] nRBC % Auto 0.0 % [facility] nRBC Abs Auto 0.000 0.000 - 0.000 x10(3)/[facility] Blood 02/20/2024 4:23 AM EDT 02/20/2024 4:42 AM EDT Narrative Resulting Agency Comment Spec In Lab Minnie FRENCH HEMATOLOGY CECILIO ALEMAN [facility] [place] [address] * (ABNORMAL) Differential, Automated (02/20/2024 4:23 AM EDT) Only the most recent of2 resultswithin the time period is included. Neutrophils % 81.7 % [facility] Neutr Abs (ANC) 10.37(H) 1.70 - 6.10 x10(3)/ L [facility] Lymphocytes % 7.4 % [facility] Lymphocytes Abs 0.9 0.9 - 3.2 x10(3)/[facility] LABORATORY Monocytes % 9.7 % [facility] Monocyte Abs 1.2(H) 0.3 - 0.9 x10(3)/[facility] LABORATORY Eosinophils % 0.1 % [facility] Eosinophils Abs 0.0 0.0 - 0.4 x10(3)/[facility]ATORY Basophils % 0.2 % [facility] Basophils Abs 0.0 0.0 - 0.1 x10(3)/[facility] LABORATORY Immature Gran % 0.90 % [facility] Comment: Immature granulocytes(IG's)percentage and absolute count will include metamyelocytes, myelocytes, and promyelocytes. Blood smears from CBCs yielding IG's will be scanned manually for concordance. If this scan disagrees with the automated IG or if promyelocytes are noted, a manual differential will be performed. [place] Gran Abs 0.12(H) 0.00 - 0.04 x10(3)/mc L [facility] Blood 02/20/2024 4:23 AM EDT 02/20/2024 4:42 AM EDT Narrative Resulting Agency Comment Spec In Lab Minnie FRENCH HEMATOLOGY CECILIO ALEMAN Performing Organization Address City/[facility] Co de Phone Number [facility] [place] [address] * POCT Glucose (02/18/2024 8:24 AM EDT) Only the most recent of4 resultswithin the time period is included. POC Glucose 157 65 - 199 mg/dL [facility] Comment: Supplemental ranges: <140 mg/dL before meals <180 mg/dL all other times of the day Blood 02/18/2024 8:24 AM EDT 02/18/2024 8:24 AM EDT Zak Farmer MD POINT OF CARE TEST ORDERABLES Performing Organization Address [facility] Co de Phone Number [facility] [place] [address] * (ABNORMAL) Troponin (02/18/2024 1:40 AM EDT) Troponin-T HS 342(H) <=22 ng/L [facility] Comment: This patient's troponin T [...] troponin value can be found in the [facility] Test Catalog Troponin - [facility] Test Catalog Reference: Fourth [place] Definition of Myocardial Infarction. Journal of the [place] [employer] 2018;72:2697-4947 Blood 02/18/2024 1:40 AM EDT 02/18/2024 1:56 AM EDT Narrative Resulting Agency Comment Spec In Lab Zak Farmer MD CHEMISTRY ORDERABLE S Performing Organization Address City/[facility]/ZIP Co de Phone Number [facility] [place] [address] * Hemoglobin (02/17/2024 5:42 PM EDT) Hemoglobin 13.7 13.7 - 16.5 g/dL [facility] Blood 02/17/2024 5:42 PM EDT 02/17/2024 6:10 PM EDT Narrative Resulting Agency Comment Spec In Lab Zak Farmer MD HEMATOLOGY ORDERABL ES Performing Organization Address [facility] Co de Phone Number [facility] [place] [address] * (ABNORMAL) BLOOD GAS 2 ARTERIAL (02/17/2024 4:18 PM EDT) Only the most recent of9 resultswithin the time period is included. pH Art 7.34(L) 7.35 - 7.45 [facility] pCO2 Art 40 35 - 45 mmHg [facility] pO2 Art 78(L) 85 - 104 mmHg [facility] HCO3 Art 20.8 20.0 - 26.0 mmol/L [facility] BE Art -5.1(L) -3.0 - 3.0 mmol/L [facility] Hgb Blood Gas 14.6 13.7 - 16.5 g/dL [facility] O2HB Art 93.0(L) 94.0 - 97.0 % [facility] COHB Art 0.3 % [facility] Comment: Nonsmokers: 0.5-1.5% COHB Smokers: Variable, but usually less than 10% Toxic: 20-30% COHB Lethal: Greater than 60% COHB METHB Art 0.8 <=1.5 % [facility] Na Whole Blood 136 135 - 145 mmol/L [facility] K Whole Blood 4.1 3.5 - 5.0 mmol/L [facility] Comment: Please note: Patients with WBC >100,000 may have falsely elevated Potassium levels. Contact the Clinical Chemistry Laboratory if there are any questions. ICa Whole Blood 1.10(L) 1.15 - 1.33 mmol/L [facility] Comment: Note: ??Total bilirubin higher than 20 mg/dL may lead to falsely low ionized calcium. CL Whole Blood 105 98 - 107 mmol/L [facility] Gluc Whole Bld 159 65 - 199 mg/dL [facility] Comment:Diabetes: >=200 mg/d L plus symptoms. Lactate WB 1.2 0.5 - 2.2 mmol/L [facility] FIO2 Art 40 % [facility] PF Ratio Art 195 [facility] Blood 02/17/2024 4:18 PM EDT 02/17/2024 4:18 PM EDT Zak Farmer MD CHEMISTRY ORDERABLE S [facility] [place] [address] * XR Chest One View (02/17/2024 1:44 PM EDT) WORKSTATION ID [id number] RAD Anatomical Region Laterality Modality Chest N/A Digital Radiogra phy Impressions 02/17/2024 2:12 PM EDT 1. ??No definite pleural fluid collection or pneumothorax. 2. ??Right IJ [place]aila catheter tip terminates in a descending branch of the right pulmonary artery. Suggest catheter retraction. 3. ??Additional support lines and tubes as above. Thank you for letting us participate in the care of this patient. ??If you are a health care provider and have any questions regarding this report, please contact the number below. ??For patients who have questions please contact the health resident care assistant that requested your imaging first. ? Electronically signed by: Denzel Hankins MD, [facility] ??([phone]), at 02/17/2024 2:12 PM Narrative 02/17/2024 2:12 PM EDT EXAMINATION: XR CHEST ONE VIEW CLINICAL HISTORY: s/p avr/cabg eval effusions TECHNIQUE: 1 view of the chest COMPARISON: Chest x-ray 01/09/2024, chest CT 02/03/2024 FINDINGS: ET tube tip terminates 5.2 cm above the carlos. Right IJ [place]-Kaila catheter tip terminates in a descending branch [...] 5.2 cm above the carlos. Right IJ [place]-Ganzcatheter tip terminates in a descending branch of [...] fluid collection or pneumothorax. 2. Right IJ [place]a catheter tip terminates in a descending branch ofthe right pulmonary artery. Suggest catheter retraction. 3. Additional support lines and tubes as above. Thank you for letting us participate in the care of this patient. If youare a health care provider and have any questions regarding this report,please contact the number below. For patients who have questions please contactthe health resident care assistant that requested your imaging first. Electronically signed by: Denzel Hankins MD, [facility]([phone]), at 02/17/2024 2:12 PM Zak Farmer MD IMG DX ORDERABLES * (ABNORMAL) Coox2 (02/17/2024 1:21 PM EDT) pO2 Coox 44 mmHg [facility] Hgb Blood Gas 13.1(L) 13.7 - 16.5 g/dL [facility] O2HB Coox 76.4 % [facility] COHB Coox 0.3 % [facility] Comment: Nonsmokers: 0.5-1.5% COHB Smokers: Variable, but usually less than 10% Toxic: 20-30% COHB Lethal: Greater than 60% COHB METHB Coox 0.8 <=1.5 % [facility] Source Coox Mixed Venous [facility] Blood 02/17/2024 1:21 PM EDT 02/17/2024 1:21 PM EDT Zak Farmer MD CHEMISTRY ORDERABLE S Performing Organization Address [facility] Co de Phone Number [facility] [place] [address] * APTT (02/17/2024 12:10 PM EDT) PTT 33 25 - 37 sec [facility] Comment: OR Result called by [...] MD HEMATOLOGY ORDERABLE S Performing Organization Address [facility] Co de Phone Number [facility] [place] [address] * (ABNORMAL) Thrombin time (02/17/2024 12:10 PM EDT) Thrombin Time 18(H) 10 - 17 sec [facility] Comment: OR Result called by [...] MD HEMATOLOGY ORDERABLE S Performing Organization Address City/[facility]/ZIP Co de Phone Number [facility] [place] [address] * (ABNORMAL) Prothrombin Time (02/17/2024 12:10 PM EDT) PT 16.7(H) 9.4 - 12.5 sec [facility] Comment: OR Result called by ?? LOMARL OR Results read back by: ? alondra pagan at 2024-02-17 12:41:48 INR 1.5 [facility] Comment: OR Result called by [...] MD HEMATOLOGY ORDERABLE S Performing Organization Address City/[facility]/ZIP Co de Phone Number [facility] [place] [address] * (ABNORMAL) Fibrinogen (02/17/2024 12:10 PM EDT) Only the most recent of2 resultswithin the time period is included. Fibrinogen 154(L) 200 - 393 mg/dL [facility] Comment: OR Result called by ?? LOMARL OR Results read back by: ? alondra pagan at 2024-02-17 12:41:48 A fibrinogen level >100 mg/dL is adequate for hemostasis in most patients without underlying bleeding disorders. Blood 02/17/2024 12:1 0 PM EDT 02/17/2024 12:19 PM EDT Narrative Resulting Agency Comment Spec In Lab Tara York MD HEMATOLOGY ORDERABLE S Performing Organization Address [facility]/ZIP Co de Phone Number [facility] [place] [address] * (ABNORMAL) Hemoglobin and Hematocrit, blood (02/17/2024 11:04 AM EDT) Hemoglobin 9.6(L) 13.7 - 16.5 g/dL [facility] Hematocrit 28.0(L) 40.5 - 48.5 % [facility] Comment: This result has been called to ALONDRA PAGAN by Eddie López on 02 17 2024 at 1120, and has been read back. Blood 02/17/2024 11:0 4 AM EDT 02/17/2024 11:12 AM EDT Narrative Resulting Agency Comment Spec In Lab Zak Famrer MD HEMATOLOGY ORDERABL ES Performing Organization Address [facility] Co de Phone Number [facility] [place] [address] * (ABNORMAL) Platelet count (02/17/2024 11:04 AM EDT) Platelets 106(L) 145 - 357 x10(3)/mc L [facility] Plat Immature % 1.6 0.0 - 7.4 % [facility] Comment: Limitation of the Immature Platelet Fraction (IPF)-May be less reliable when the platelet count is less than 42x262/uL due to statistical imprecision. The IPF value [...] in a decreased state of production. References: [employer] The Clinical Value of the Immature Platelet Fraction (IPF) in Cell Recovery Document Number [id number] 03/2011 [employer] The Role of the Immature Platelet Fraction (IPF) in the Differential Diagnosis of Thrombocytopenia, Document [id number] V002/15/14 P002/17 Blood 02/17/2024 11:0 4 AM EDT 02/17/2024 11:12 AM EDT Narrative Resulting Agency Comment Spec In Lab Zak Farmer MD HEMATOLOGY ORDERABL ES [facility] [place] [id number] * Surgical Pathology Report (02/17/2024 10:01 AM EDT) FINAL DIAGNOSIS (AP) [id number] ? Location: [facility]; [facility]; The signing pathologist has (i) examined the relevant preparation(s) for the specimen(s) and (ii) rendered or confirmed the diagnosis(es). . ?Surgical Pathology DIAGNOSIS Aortic valve leaflets, excision: Valve leaflets with myxoid degeneration, nodular fibrosis and dystrophic calcifications. Electronically signed by: ?Livier Montoya MD Verified: ??02/24/2024 13:49 ??Pathologist Performed at: ??-[facility] Dept. of Pathology, [place] [address] Tobacco Stripping Machine Operator: Job Brewer MD, FCAP, ??CLIA Certificate: [id number] SPECIMEN(S) SUBMITTED A - Aortic Valve Leaflets, [...] Sections Processing Blocks submitted for decalcification: A1. Furnace Door Tender sections in 1 cassette labeled A1. ??ajw 02/24/2024 1:49 PM EDT [facility] AORTIC STRUCTURE / Unknown 02/17/2024 10:01 AM EDT 02/17/2024 10:01 AM EDT Zak Farmer MD PATHOLOGY/CYTOLOGY ORDERABLES [facility] [place] [address] * Specimen to Pathology (02/17/2024 10:01 AM EDT) AP Specimen 02/17/2024 10:0 1 AM EDT 02/17/2024 10:01 AM EDT Narrative [facility] - 02/17/2024 10:01 AM EDT Specimen requisition ordered. ??Separate Pathology report to follow Zak Farmer MD PATHOLOGY/CYTOLOGY ORDERABLES [facility] [place] [address] * (ABNORMAL) BLOOD GAS 2 VENOUS (02/17/2024 9:34 AM EDT) pH Jose 7.22(Criti marquez) 7.32 - 7.42 [facility] Comment:Noted by aircraft instrument repairer. pCO2 Jose 43 41 - 51 mmHg [facility] Comment:Noted by aircraft instrument repairer. pO2 Jsoe 57(H) 25 - 40 mmHg [facility] Comment:Noted by aircraft instrument repairer. HCO3 Jose 17.1 mmol/L [facility] Comment:Noted by aircraft instrument repairer. BE Jose -10.6 mmol/L [facility] Comment:Noted by aircraft instrument repairer. Hgb Blood Gas 11.2(L) 13.7 - 16.5 g/dL [facility] Comment:Noted by aircraft instrument repairer. O2HB Jose 86.5 % [facility] Comment:Noted by aircraft instrument repairer. COHB Jose 0.3 % [facility] Comment: Noted by aircraft instrument repairer. Nonsmokers: 0.5-1.5% COHB Smokers: Variable, but usually less than 10% Toxic: 20-30% COHB Lethal: Greater than 60% COHB METHB Jose 0.0 <=1.5 % [facility] Comment:Noted by aircraft instrument repairer. Na Whole Blood 156(H) 135 - 145 mmol/L [facility] Comment:Noted by aircraft instrument repairer. K Whole Blood 5.5(H) 3.5 - 5.0 mmol/L [facility] Comment: Noted by aircraft instrument repairer. Please note: Patients with WBC >100,000 may have falsely elevated Potassium levels. Contact the Clinical Chemistry Laboratory if there are any questions. ICa Whole Blood 1.03(L) 1.15 - 1.33 mmol/L [facility] Comment: Noted by aircraft instrument repairer. Note: ??Total bilirubin higher than 20 mg/dL may lead to falsely low ionized calcium. CL Whole Blood 100 98 - 107 mmol/L [facility] Comment:Noted by aircraft instrument repairer. Gluc Whole Bld 132 65 - 199 mg/dL [facility] Comment: Noted by aircraft instrument repairer. Diabetes: >=200 mg/dL plus symptoms Lactate WB 1.0 0.5 - 2.2 mmol/L [facility] Comment:Noted by aircraft instrument repairer. BGas Source Venous [facility] Blood 02/17/2024 9:34 AM EDT 02/17/2024 9:34 AM EDT Zak Farmer MD CHEMISTRY ORDERABLE S [facility] [place] [address] * Transesophageal Echo/OR (02/17/2024 6:33 AM EDT) [...] [facility]operative [facility] of cardiac function [...] Status decision made by: Patient Care Teams Natural Resources Extension Educator Relationship Specialty Start Date End Date Aparna Jordan APRN PCP - General Family Medicine 10/21/23
--- OUTSIDE RECORDS SUMMARY | 2024-05-08 08:04 | XMS_ITS | Encounter Summary ---
Author Organization Formerly [facility] Address [facility] [place] [address] Care Team Providers Care Pulverizer Mill Operator Name Role Phone Vanessa Christian APRN Primary Care Provider [phone] Encounter Details Date Type Department Care Team [...] 11:00 AM EDT Office Visit Cardiology at [address] [place] [address] Neftali Ernandez MD [facility] [place] [address] documented as of this encounter Visit Diagnoses Not on filedocumented in this encounter Care Teams Pulverizer Mill Operator Relationship Specialty Start Date End Date Vanessa Christian APRN PCP - General Family Medicine 10/21/23 documented as of this encounter
--- OUTSIDE RECORDS SUMMARY | 2024-05-08 08:04 | XMS_ITS | Encounter Summary ---
Author Organization Formerly [facility] Address [facility] [place] [address] Care Team Providers Care Slat Basket Maker Helper Machine Name Role Phone Vanessa Christian MAURI Primary Care Provider [phone] Encounter Details Date Type Department Care Team (Late st Contact Info) Description 02/14/2024 Orders [place] [phone] Zak Farmer MD [facility] [place] [address] Coronary artery disease, unspecified vessel or lesion type, unspecified whether angina present, unspecified whether [place] or transplanted heart (Primary Dx) Social History [...] 11:00 AM EDT Office Visit Cardiology at [address] [place] [phone] Neftali Ernandez MD [facility] [place] [address] documented as of this encounter Results * EKG 12 Lead (03/12/2024 2:35 PM EDT) Ventricular rate 59 BPM MUSE SYSTEM Atrial Rate 59 BPM MUSE SYSTEM P-R Interval 190 ms MUSE SYSTEM QRS Duration 92 ms MUSE SYSTEM Q-T Interval 406 ms MUSE SYSTEM QTC Calculated (Bezet) 401 ms MUSE SYSTEM Calculated P [place] -12 degrees MUSE SYSTEM Calculated R [place] 24 degrees MUSE SYSTEM Calculated T [place] 74 degrees MUSE SYSTEM INTERPRETATION Sinus bradycardia T wave abnormality, consider anterior ischemia Abnormal ECG When compared with ECG of 17-FEB-2024 13:24, [place] interval has decreased T wave inversion now evident in Anterior leads Confirmed by Paul Guzman ([id number]) on 03/15/2024 8:36:23 AM MUSE SYSTEM 03/12/2024 2:35 PM EDT 03/15/2024 8:36 AM EDT Zak Farmer MD ECG ORDERABLES MUSE SYSTEM * XR Chest PA & Lateral (Generic) (03/12/2024 1:42 PM EDT) WORKSTATION ID [id number] RAD Anatomical Region Laterality Modality Chest N/A [...] who have questions please contact the health rn care manager that requested your imaging first. ? Electronically signed by: Augie Sanchez MD, [facility] ([phone]), at 03/13/2024 8:28 AM Narrative 03/13/2024 8:28 AM EDT EXAMINATION: XR CHEST PA AND LATERAL (GENERIC) CLINICAL HISTORY: s/p cabg eval effusions I25.10, Atherosclerotic heart disease of [place] coronary artery without angina pectoris TECHNIQUE: PA [...] eval effusions I25.10, Atherosclerotic heart disease of [place] coronary artery withoutangina pectoris TECHNIQUE: PA and [...] patients who have questions please contactthe health rn care manager that requested your imaging first. Zak Farmer MD IMG DX ORDERABLES documented in this encounter Visit Diagnoses Diagnosis Coronary artery disease, unspecified vessel or lesion type, unspecified whether angina present, unspecified whether [place] or transplanted heart- Primary Coronary artery disease, unspecified vessel or lesion type, unspecified whether angina present, unspecified whether [place] or transplanted heart documented in this encounter Care Teams Slat Basket Maker Helper Machine Relationship Specialty Start Date End Date Vanessa Christian APRN PCP - General Family Medicine 10/21/23 documented as of this encounter
--- OUTSIDE RECORDS SUMMARY | 2024-05-08 08:04 | XMS_ITS | Encounter Summary ---
Author Organization [facility] [place] [address] Care Team Providers Care Wrapper And Preserver Name Role Phone Vanessa Christian MAURI Primary Care Provider [phone] Reason for Visit * Auth/Cert (Routine) Specialty [...] W RHC (WRVU 5.9) Rima Dickinson MD [facility] [place] [address] [facility] Referral ID Status Reason Start Date Expiration Date Visits Re quested Visits Authorized [id number] 1 1 Encounter Details Date Type Department Care Team (Latest Contact Info) Description 02/03/2024 8:06 AM EDT - 02/03/2024 2:54 PM EDT Hospital Encounter [employer] [place] [address] Rima Dickinson MD [facility] [address] Screening for cardiovascular condition; Aortic valve stenosis, [...] lbs Follow-up Visits Follow up with your travel coordinator in 2-4 weeks Access Site 'Black and Blue' and tenderness is expected during the first week Call if you noted a mass (lump) greater than the size of a ellis Call Office with any Questions and if you have any of the following Clarence Lane M.D Interventional Relations Liaison Finance Mgr #: [phone] * Attachments The following attachments cannot be sent through Care Everywhere. * CAD (Coronary Artery Disease): General Info (Stateless) * Coronary Angiogram: Post-op (Stateless) documented in this encounter Medications at Time [...] Lane MD - 02/03/2024 11:48 AM EDT [facility] Interventional Cardiology Adult Pre-Procedure H&P Update: Cardiac Catheterization Karlos Anthony [id number] 1960 Chief Complaint: Aortic stenosis HPI: Mr. [...] is inthe chart Clarence Lane MD Interventional Relations Liaison 02/03/24 11:48 AM documented in this encounter Miscellaneous Notes * Brief Op Note - Clarence Lane MD - 02/03/2024 12:51 PM EDT Preliminary Cardiac Catheterization Procedure Note: Patient Name: Karlos Anthony : [id number] MR#: [id number] Case Date: 02/03/2024 Finance Mgr: Surgeon(s) and Role: * Saira Lua MD [...] AM EDT Office Visit Cardiology at [address] [place] [address] Neftali Ernandez MD [facility] [place] [address] Scheduled Orders Name Type Priority Associated Diagnoses [...] Modality Other Narrative 02/12/2024 3:47 PM EDT ?[facility] ? Cardiac Catheterization/Intervention Report ? Patient Name: Karlos Anthony ? Procedure Date: 02/03/2024 ? A #: [id number] ? Primary Physician: Saira Lua ? Case #: [id number] ? File Name: [id number] ? Catheterization Order Number: [id number] ? [facility] ? Final Report [place], [place] ? Patient Name: ? Karlos Patenaude ? ID#: ?[id number] ? : ?1960 ? Procedure Date: ? [...] Procedure Note Saira Lua MD - 02/12/2024 [facility] Cardiac Catheterization/Intervention Report Patient Name: Karlos Anthony Procedure Date: 02/03/2024 A #: [id number] Primary Physician: Saira Lua Case #: [id number] File Name: [id number] Catheterization Order Number: [id number] [facility] FinalReport [place], [place] Patient Name: Karlos Anthony ID#:[id number] :1960 Procedure Date: February 03, 2024 Case [...] was designated as ASA Class III. The [facility] clinical frailty scale is 3: Managing [...] (Bezet) 372 ms MUSE SYSTEM Calculated P [place] 59 degrees MUSE SYSTEM Calculated R [place] 34 degrees MUSE SYSTEM Calculated T [place] 63 degrees MUSE SYSTEM INTERPRETATION Sinus bradycardia [...] MD) documented in this encounter Care Teams Wrapper And Preserver Relationship Specialty Start Date End Date Vanessa Christian APRN PCP - General Family Medicine 10/21/23 documented as of this encounter
--- OUTSIDE RECORDS SUMMARY | 2024-05-08 08:04 | XMS_ITS | Encounter Summary ---
Author Organization [facility] [place] [address] Care Team Providers Care Veterinary Nurse Name Role Phone Aparna Jordan MAURI Primary Care Provider [phone] Reason for Visit * Auth/Cert (Routine) Specialty [...] ARTERIAL GRAFT (WRVU 7.93) Hayder Graham MD [facility] CARDIOTHORACIC [place] [address] [facility] Referral ID Status Reason Start Date Expiration Date Visits Re quested Visits Authorized [id number] 1 1 Encounter Details Date Type Department Care Team (Late st Contact Info) Description 02/17/2024 7:30 AM EDT - 02/17/2024 1:26 PM EDT Surgery [place] [id number] Hayder Graham MD [facility] CARDIOTHORACIC [place] [address] ENDOSCOPIC HARVEST VEIN(S) FOR CABG (WRVU 0.31) Social History Tobacco Use Types Packs/Day Years Used Date Smoking Tobacco: Former Cigarettes Smokeless Tobacco: Never Comments:Quit 15 + years ago Alcohol Use Standard Drinks/Week Comments Yes 0 (1 standard drink = 0.6 oz pur e alcohol) rare [facility] Utilities Answer Date Recorded In [...] place to sleep or slept in a fpc (including now)? No 02/18/2024 DH IPV Inpatient [...] Patient Age: 63 y.o. Birthdate: 1960 Language: Luxembourger Race: White Ethnicity: Not nor Admit Date: 02/17/2024 Discharge Date: 02/24/24 Attending Physician: Hayder Graham MD Follow-up Recommendations for Providers: Please continue routine management of cardiovascular risk factors including blood pressure, lipids,glucose, etc. Please note any changes to medications. Patient to follow up with PCP, Aparna Jordan APRN, in 1-2 weeks. Patient to follow up with Retail Product Advisor, Neftali Ernandez MD , in 2 weeks. Patient to follow up with Cardiac Surgeon, Dr. Hayder Graham, with a chest x-ray, EKG, and Echo. 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 Past Surgical History: Procedure Laterality Date PRO CABG, ARTERIAL, SINGLE N/A 02/17/2024 @CABG, USING ARTERIAL GRAFT;SINGLE ARTERIAL GRAFT (WRVU 33.75) performed by Hayder Graham MD at [facility] MAIN OR PRO CABG, ARTERY-VEIN, TWO N/A 02/17/2024 @CABG, TWO VENOUS GRAFTS & ARTERIAL GRAFT (WRVU 7.93) performed by Hayder Graham MD at [facility] MAIN OR PRO ENDOSCOPY W/VIDEO-ASST VEIN HARVEST, CABG Left 02/17/2024 ENDOSCOPIC HARVEST VEIN(S) FOR CABG (WRVU 0.31) performed by Hayder Graham MD at [facility] MAIN OR PRO REPLACEMENT PROSTHETIC AORTIC VALVE OPEN W CARDIOPULMONARY BYPASS HOMOGRF/STENT N/A 02/17/2024 @REPLACE AORTIC VALVE, OPEN, W\CPB, W\PROSTHETIC VALVE (WRVU 41.32) performed by Hayder Graham MD at [facility] MAIN OR Prior To Admission Medications [...] insufficiency. He has glaucoma. He used to bacCloudAmbo until about 15 years ago. He has undergone prior herniorrhaphy. 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 Major Procedures/Operations: 02/17/24 s/p avr/cabgx3 CABG x 3 JOSE->LAD SVG->dRCA SVG->OM1 EVH from LLE AVR with a 23 mm Inspiris Bioprosthesis Hospital Course: Karlos Garcia was admitted to [facility] on 02/17/2024 via the Same Day Program. [...] Hayder Graham and/or the Cardiac Surgery Physician Complex Commercial Litigation Paralegal Team may be reached at . Antibiotic [...] Please refer to the card with the [place] [employer] Guidelines for more information. You [...] Dr. Hayder Graham. You may use a Tappan Track or treadmill but avoid any pulling [...] friends, go to a movie, go to adventism, etc. Heavy activities: No hunting, skiing, jogging, [...] should resume a low fat, low cholesterol, [place] [employer] Diet. Driving: No driving until [...] while being managed by your PCP and/or Retail Product Advisor. For future medication refills, please refer to your PCP and/or Retail Product Advisor after your discharge from our service. Thank you REMOVE CHEST TUBE SUTURES ON OR AFTER 03/02/24 Home oxygen therapy: N/A Follow up appointments: You should follow up with your PCP, Aparna Jordan APRN, in 1-2 weeks. Our office will schedule an appointment with your Retail Product Advisor, Neftali Ernandez MD , in 2 weeks. You have an appointment with your Cardiac Surgeon, Dr. Hayder Graham, 4 weeks with a chest x-ray, EKG, and Echo before your appointment. Cardiac Rehabilitation: Karlos Garcia was seen regarding participation in the outpatient Phase 2Cardiac Rehabilitation at [facility]. The patient agrees to a referral to this program. The referral will be sent at discharge and the patient should be contacted by the Program within 1- 2 weeks from discharge. Future Appointments and Orders Future Orders Complete By Expires Echocardiogram Transthoracic [65652 CPT(R)] 03/26/2024 09/25/2024 Process Instructions: Scheduling Instructions: Questions: Where will study be performed?: [facility] Clinics Does the patient have Congenital Heart Disease?: Does patient require sedation?: Sedation rationale: XR Chest PA & Lateral (Generic) [72139 60535 Custom] 03/26/2024 09/25/2024 Process Instructions: Scheduling Instructions: Questions: Portable exam?: Reason for exam and clinical history: s/p avr/cabg Clinical information / jerome questions for radiologist: Stat read required?: Date of injury if applicable: Requested Time: Where will study be performed?: [facility] Radiology Referral to Cardiac Rehab [TXO542 Custom] As directed Process Instructions: If no progress note charted, please enter Clinical details in comments. Scheduling Instructions: Questions: My question or request is: s/p AVR/CABG. Cardiac rehab at [facility]. Referral to Home Health [REF34 Custom] As directed Process Instructions: If no progress note charted, please enter Clinical details in comments. Scheduling Instructions: Comments: Please evaluate Karlos Garcia for admission to Home Health. 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 [address] [place] [id number] RN orders: Cardiopulmonary assessment, incisional assessment, assess [...] issues please call the Cardiology Office at [phone] FOR MEDICARE ONLY: (please delete this section [...] care: As above. Signed: NEFTALI MENON PA-C [facility] Section of Cardiac Surgery [employer] [facility] [employer] [phone] FAX [phone] Date: 02/24/2024 CC: Aparna Jordan, MAURI Jordan, Aparna Sherman APRN [address] [place] [address] documented in this encounter Discharge Instructions * [...] Hayder Graham and/or the Cardiac Surgery Physician Complex Commercial Litigation Paralegal Team may be reached at . Antibiotic [...] Please refer to the card with the [place] [employer] Guidelines for more information. You [...] Dr. Hayder Graham. You may use a Tappan Track or treadmill but avoid any pulling [...] friends, go to a movie, go to adventism, etc. Heavy activities: No hunting, skiing, jogging, [...] should resume a low fat, low cholesterol, [place] [employer] Diet. Driving: No driving until [...] while being managed by your PCP and/or Retail Product Advisor. For future medication refills, please refer to your PCP and/or Retail Product Advisor after your discharge from our service. Thank you REMOVE CHEST TUBE SUTURES ON OR AFTER 03/02/24 Home oxygen therapy: N/A Follow up appointments: You should follow up with your PCP, Aparna Jordan APRN, in 1-2 weeks. Our office will schedule an appointment with your Retail Product Advisor, Neftali Ernandez MD , in 2 weeks. You have an appointment with your Cardiac Surgeon, Dr. Hayder Graham, 4 weeks with a chest x-ray, EKG, and Echo before your appointment. Cardiac Rehabilitation: Karlos Garcia was seen regarding participation in the outpatient Phase 2Cardiac Rehabilitation at [facility]. The patient agrees to a referral to [...] 0600 and on the weekends please page [phone]. * Eric Barahona PA - 02/23/2024 9:27 AM EDT Cardiac Surgery Progress Note Karlos Gacria is a 63 y.o. male with and [...] 0600 and on the weekends please page [phone]. * Tiffanie Owens - 02/22/2024 2:48 PM [...] Pt reports his dtr is coming from [place] to stay upon d/c for 10 days. 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 * Kelley Hinson PTA - 02/21/2024 10:15 [...] Pt reports his dtr is coming from [place] to stay upon d/c for 10 days. 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 * Kelley Hinson PTA - 02/20/2024 3:32 PM EDT 02/20/24 7493 Evaluation & Treatment Document Type contact Total Minutes, Physical Therapy 0 Comment, Session Not Performed Checked in w/ pt this PM for ongoing PT services, pt politely declined, stating he had been dealing w/ nausea all day, made plan to see him tomorrow morning, will f/u at that time Kelley Hinson PTA Pager: [phone] Physical Therapy Inpatient Rehab Department * Louisa [...] 0600 and on the weekends please page [phone]. * Maris Benavides, PT - 02/19/2024 11:22 [...] Pt reports his dtr is coming from [place] to stay upon d/c for 10 days. 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 Precautions/Special Considerations: STERNAL [...] outlined inthis evaluation. MARIS BENAVIDES, PT Pager: [phone] Physical Therapy Inpatient Rehabilitation Department Time IN / OUT: 4408-7624 Total Time: 38 (eval) minutes; * Antonio [...] 0600 and on the weekends please page [phone]. * Minnie Begum PA - 02/18/2024 8:25 [...] site CDI with SANJANA wrap Tubes/Lines/Drains: RIJ/PAC, [place], Med Ctx, L pleural CT, TPW, Naqvi [...] 0600 and on the weekends please page [phone]. * Kim Ha RCP - 02/17/2024 2:25 [...] plan since last visit. Hayder Graham MD [phone] Source Note - Hayder Graham MD - [...] of edema. In summary, I agree Mr. Sanat would benefit from aortic valve replacement therapy pin placement therapy. Given his chronological age and the likely bicuspid nature of his aortic valve I think a surgical approach would be the most appropriate. The potential risks and anticipated benefits reviewed carefully with him. He does wish to proceed, and has given written informed consent. Hayder Graham MD [phone] * Hayder Graham MD - 02/17/2024 7:00 [...] insufficiency. He has glaucoma. He used to bacCloudAmbo until about 15 years ago. He has [...] given written informed consent. Hayder Graham MD [phone] documented in this encounter Miscellaneous Notes * [...] information for follow-up Home Health & Hospice, [address] [place] [address] Cardiac Rehab, [facility] [address] [place] [address] [place] [address] Transportation: family or friend will provide Functional status prior to admission: Independent Home Environment: Others in the home: alone. Current Living Arrangements: home/apartment/condo. Accessibility Concerns:a few steps to enter 1 floor home. Current Functional Ability: Assistive Person and Equipment DME used at home: none DME Needed at Discharge: N/A Patient is insured through: Primary Insurance: [facility] Payor: [facility] / Plan: [facility] PPO / Product Type: *No [...] pain managed with scheduled Tylenol. Worked with [employer]. Ambulated in the roque multiple times during [...] anticipated Patient is insured through: Primary Insurance: [employer] Payor: [facility] / Plan: [facility] PPO / Product Type: *No Product type* / Secondary Insurance: N/A Last Physical Therapy Recommendation: home with home health (Str coming to stay for a week or two upon d/c) with to be determined (owns rolling walker, shower seat) Plan for discharge is: Home w/ Services Outpatient Agency/Support Group Needs: Homecare agency Home Health Services: Physical Therapy, Registered Nurse Agency Referrals: [facility]. [address] [place] [phone] Transportation: family or friend will provide Barriers to discharge: Discharge planning Plan going forward: Service Care Management will continue to follow and assist with discharge planning and coordination of care as indicated. Anticipated Date of Discharge: 02/22/2024 Rhett Bell RN RN/CM - Cellphone: [phone] Pager: [phone] Covering Service RN/CM * Plan of Care [...] Yang RN - 02/19/2024 10:44 AM EDT [facility] CARDIAC REHABILITATION Karlos Garcia was seen today regarding participation in the outpatient Phase 2 Cardiac Rehabilitation at [facility]. 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 (Only good for 180 days) Any patient receiving care in [place] must abide by [place] law. The hierarchy for surrogate decision making [...] The agent with financial power of ip attorney or a conservator appointed in accordance [...] In the past 12 months has the [employer], gas, oil, or water [employer] threatened to shut off services in your [...] Home Address confirmed as: [address] [facility] [address] Physical address: [address] [facility], [address] Social & Family Supports: All names listed [...] Information: none noted Health/Prescription Coverage: Primary Insurance: [employer] Payor: [facility] / Plan: [facility] PPO / Product Type: *No Product type* / Secondary Insurance: N/A ; Prescription Coverage: Yes Preferred Pharmacy: [id number] [address] [place] Status: Patient is a : No Primary Care Provider confirmed: Aparna Jordan, SKIP MINER [phone] Patient/Caregiver Goals of Treatment: dc to home Potential Needs for Transition of Care: home health care Agency Referrals: I have met with the patient to: discuss discharge planning needs. provide the [facility], Office of Care Management letter from the Desktop Publisher pertaining to rehab referrals. provide a letter describing our affiliations within the [facility] and educate about their right to choose where referrals are sent. provide a list of Home Health Agencies / Durable Medical Equipment vendors which serve their preferred geographic area. provided patient with [facility] Star Quality Rating handout. They have requested referrals to: [facility] [address] [place] [address] Note routed to a Hygiene Assistant who will communicate referrals to facilities and [...] daughter, Cielo, will be coming in from [place] on 02/18, to stay with him , in his home ,at discharge. Pt states that she is able to provide support/assist for any needs that he may have when discharged. Plan: dc to home A member of the Care Management team will continue to monitor progress, follow for continuity of care and assist with transition of care planning. Reina Greene RN CM, BSN, [facility]- Ext [phone] * Plan of Care - Binta Trinidad [...] Operative Note Patient Name: Karlos Garcia : [id number] MR#: [id number] Case Date: 02/17/2024 Surgeon: Surgeon(s) and Role: * Hayder Graham MD - Primary * Neftali Menon PA - Physician Complex Commercial Litigation Paralegal Preoperative diagnosis: CAD Postoperative diagnosis: CAD, intraoperative [...] mL Drains: Mediastinal and Left pleural Disposition: [facility] Condition: doing well without problems Attestation: Case Date: 02/17/2024 I performed this procedure without the involvement of a resident. HAYDER GRAHAM MD 02/17/2024 * Op Note - Hayder Graham MD - 02/17/2024 8:20 AM EDT [facility] Operative Note Patient Name: Karlos Garcia : [id number] MR#: [id number] Case Date: 02/17/2024 Surgeon: Surgeons and Role: * Hayder Graham MD - Primary * Neftali Menon PA - Physician Complex Commercial Litigation Paralegal Preoperative diagnosis: CAD Postoperative diagnosis: CAD, intraoperative [...] mL Drains: Mediastinal and Left pleural Disposition: [facility] Procedure Description: The patient was brought to [...] AM EDT Office Visit Cardiology at [address] [address] Neftali Ernandez MD [facility] [place] [address] Scheduled Orders Name Type Priority Associated Diagnoses [...] Aortic Valve Open W Cardiopulmonary Bypass Homogrf/Stent (26490) Yes 02/17/2024 7:28 AM EDT CAD Cabg, Artery-Vein, Two (37660) Yes 02/17/2024 7:28 AM EDT CAD Cabg, Arterial, Single (46970) Yes 02/17/2024 7:28 AM EDT CAD Endoscopy W/Video-Asst Vein [place], Cabg ([address]958) Yes 02/17/2024 7:28 AM EDT CAD POCT GLUCOSE Routine 02/17/2024 6:38 AM EDT TRANSESOPHAGEAL ECHOCARDIOGRAM IN THE OR Routine 02/17/2024 6:33 AM EDT Aortic valve stenosis, etiology of cardiac valve disease unspecified LAB SCAN 02/17/2024 12:00 AM EDT IMPLANTABLE DEVICES SCAN 02/17/2024 12:00 AM EDT documented in this encounter Results * Potassium (02/24/2024 4:42 AM EDT) Potassium 4.0 3.5 - 5.0 mmol/L [facility] Comment: Please note: ??Patients [...] Lab Hayder Graham MD CHEMISTRY ORDERABLE S [facility] [place] [address] * (ABNORMAL) Basic Metabolic Panel (non-fasting) (02/23/2024 4:24 AM EDT) Glucose Lvl 117 65 - 199 mg/dL [facility] Comment:Diabetes: >=200 mg/d L plus symptoms BUN 18 10 - 20 mg/dL [facility] Creatinine 0.71(L) 0.80 - 1.50 mg/dL [facility] Sodium 138 135 - 145 mmol/L [facility] Potassium 4.4 3.5 - 5.0 mmol/L [facility] Comment: Please note: ??Patients with WBC >100,000 may have falsely elevated Potassium levels. ??For accurate Potassium quantification in these patients send serum separator tube (gold top) for subsequent determinations. ??Contact the Clinical Chemistry Laboratory if there are any questions. Chloride 101 98 - 107 mmol/L [facility] CO2 26 22 - 31 mmol/L [facility] Anion Gap 11 5 - 15 mmol/L [facility] Calcium 8.8 8.5 - 10.5 mg/dL [facility] Estimated GFR 102 >=60 mL/min/1. 73 m?? [facility] Comment: This patient's estimated [...] In Lab Romeo Carpio MD CHEMISTRY ORDERABLES [facility] [place] [address] * Potassium (02/22/2024 4:30 AM EDT) Potassium 3.5 3.5 - 5.0 mmol/L [facility] Comment: Please note: ??Patients [...] Lab Hayder Graham MD CHEMISTRY ORDERABLE S [facility] [place] [address] * (ABNORMAL) Basic Metabolic Panel (non-fasting) (02/21/2024 9:45 AM EDT) Glucose Lvl 123 65 - 199 mg/dL [facility] Comment:Diabetes: >=200 mg/d L plus symptoms BUN 22(H) 10 - 20 mg/dL [facility] Creatinine 0.78(L) 0.80 - 1.50 mg/dL [facility] Sodium 140 135 - 145 mmol/L [facility] Potassium 3.9 3.5 - 5.0 mmol/L [facility] Comment: Please note: ??Patients with WBC >100,000 may have falsely elevated Potassium levels. ??For accurate Potassium quantification in these patients send serum separator tube (gold top) for subsequent determinations. ??Contact the Clinical Chemistry Laboratory if there are any questions. Chloride 100 98 - 107 mmol/L [facility] CO2 Not Perf 22 - 31 [facility] Comment:Add-on request. Yolanda le too old to perform test. Anion Gap Unable to Calculate 5 - 15 mmol/L [facility] Calcium 8.6 8.5 - 10.5 mg/dL [facility] Estimated GFR 100 >=60 mL/min/1 .73 m?? [facility] Comment: This patient's estimated [...] Carpio MD CHEMISTRY ORDERABLES Performing Organization Address City/[facility]/ZIP Co de Phone Number [facility] [place] [address] * Lactate, whole blood, send to lab ([facility] (02/21/2024 9:45 AM EDT) [facility] Lactate WB 2.0 0.5 - 2.2 mmol/L [facility] Blood 02/21/2024 9:45 AM EDT 02/21/2024 9:52 AM EDT Narrative Resulting Agency Comment Spec In Lab Hayder Graham MD CHEMISTRY ORDERABLE S Performing Organization Address [facility] Co de Phone Number [facility] [place] [address] * (ABNORMAL) Hepatic Function Panel (02/21/2024 9:45 AM EDT) [facility] Total Protein 5.7(L) 6.1 - 8.0 g/dL [facility] Albumin 3.3 3.2 - 5.2 g/dL [facility] AST 13 0 - 39 unit/L [facility] ALT 16 0 - 55 unit/L [facility] Alk Phos 63 40 - 130 unit/L [facility] Total Bilirubin 0.6 0.2 - 1.3 mg/dL [facility] Bili, Direct 0.2 0.0 - 0.3 mg/dL [facility] Blood 02/21/2024 9:45 AM EDT 02/21/2024 9:52 AM EDT Narrative Resulting Agency Comment Spec In Lab Hayder Graham MD CHEMISTRY ORDERABLE S Performing Organization Address City/[facility]/ZIP Co de Phone Number [facility] [place] [address] * Lipase (02/21/2024 9:45 AM EDT) Lipase 56 0 - 60 unit/L [facility] Blood 02/21/2024 9:45 AM EDT 02/21/2024 9:52 AM EDT Narrative Resulting Agency Comment Spec In Lab Hayder Graham MD CHEMISTRY ORDERABLE S [facility] [place] [address] * Amylase (02/21/2024 9:45 AM EDT) Amylase 69 28 - 100 unit/L [facility] Blood 02/21/2024 9:45 AM EDT 02/21/2024 9:52 AM EDT Narrative Resulting Agency Comment Spec In Lab Hayder Graham MD CHEMISTRY ORDERABLE S Performing Organization Address City/[facility]/ZIP Co de Phone Number [facility] [place] [address] * Potassium (02/21/2024 3:08 AM EDT) Potassium 3.8 3.5 - 5.0 mmol/L [facility] [facility] Comment: Please note: ??Patients [...] Lab Hayder Graham MD CHEMISTRY ORDERABLE S [facility] [place] [address] * XR Chest PA & Lateral (Generic) (02/20/2024 10:19 AM EDT) WORKSTATION ID [id number] RAD Anatomical Region Laterality Modality Chest N/A Digital Radiogra phy Impressions 02/20/2024 1:11 PM EDT Small pleural effusions. No pneumothorax Thank you for letting us participate in the care of this patient. ??If you are a health care provider and have any questions regarding this report, please contact the number below. ??For patients who have questions please contact the health child care director that requested your imaging first. ? Narrative 02/20/2024 1:11 PM EDT EXAMINATION: XR CHEST PA AND LATERAL (GENERIC) CLINICAL HISTORY: s/p AVR/CABGx3 TECHNIQUE: PA and lateral views of the chest COMPARISON: 02/17/2024 FINDINGS: Support devices: Interval removal of Bonesteel-Kaila catheter, endotracheal tube and mediastinal chest tubes The cardiac silhouette is stable status post median sternotomy, CABG and aortic valve replacement. There are small pleural effusions. No pneumothorax. Procedure Note Rogerio Cruz MD - 02/20/2024 EXAMINATION: XR CHEST PA AND LATERAL (GENERIC) CLINICAL HISTORY: s/p AVR/CABGx3 TECHNIQUE: PA and lateral views of the chest COMPARISON: 02/17/2024 FINDINGS: Support devices: Interval removal of Bonesteel-Kaila catheter, endotracheal tubeand mediastinal chest tubes The [...] patients who have questions please contactthe health child care director that requested your imaging first. Hayder Graham MD IMG DX ORDERABLES * Scan, Peripheral Blood (02/20/2024 4:23 AM EDT) Plat Estimate Decreased [facility] RBC Morphology Normal [facility] Blood 02/20/2024 4:23 AM EDT 02/20/2024 4:42 AM EDT Narrative Resulting Agency Comment Spec In Lab iMnnie FRENCH HEMATOLOGY CECILIO ALEMAN [facility] [place] [id number] * (ABNORMAL) Differential, Automated (02/20/2024 4:23 AM EDT) Neutrophils % 81.7 % [facility] Neutr Abs (ANC) 10.37(H) 1.70 - 6.10 x10(3)/mc L [facility] Lymphocytes % 7.4 % [facility] Lymphocytes Abs 0.9 0.9 - 3.2 x10(3)/mc L [facility] Monocytes % 9.7 % [facility] Monocyte Abs 1.2(H) 0.3 - 0.9 x10(3)/mc L [facility] Eosinophils % 0.1 % [facility] Eosinophils Abs 0.0 0.0 - 0.4 x10(3)/mc L [facility] Basophils % 0.2 % [facility] Basophils Abs 0.0 0.0 - 0.1 x10(3)/mc L [facility] Immature Gran % 0.90 % [facility] Comment: Immature granulocytes(IG's)percentage and absolute count will include metamyelocytes, myelocytes, and promyelocytes. Blood smears from CBCs yielding IG's will be scanned manually for concordance. If this scan disagrees with the automated IG or if promyelocytes are noted, a manual differential will be performed. [place] Gran Abs 0.12(H) 0.00 - 0.04 x10(3)/ L [facility] Blood 02/20/2024 4:23 AM EDT 02/20/2024 4:42 AM EDT Narrative Resulting Agency Comment Spec In Lab Minnie FRENCH HEMATOLOGY CECILIO ALEMAN [facility] [place] [address] * (ABNORMAL) Hemogram (02/20/2024 4:23 AM EDT) WBC 12.7(H) 4.0 - 9.5 x10(3)/[facility] RBC 4.26(L) 4.58 - 5.54 x10(6)/[facility] Hemoglobin 12.3(L) 13.7 - 16.5 g/dL [facility] Hematocrit 37.1(L) 40.5 - 48.5 % [facility] MCV 87.1 82.9 - 93.1 fL [facility] MCH 28.9 27.5 - 32.1 pg [facility] MCHC 33.2 32.0 - 35.7 g/dL [facility] Platelets 88(L) 145 - 357 x10(3)/[facility] RDWSD 43.5 36.0 - 45.0 fL [facility] RDWCV 13.7 11.4 - 13.8 % [facility] MPV 10.2 7.6 - 12.9 fL [facility] nRBC % Auto 0.0 % [facility] nRBC Abs Auto 0.000 0.000 - 0.000 x10(3)/mcL [facility] Blood 02/20/2024 4:23 AM EDT 02/20/2024 4:42 AM EDT Narrative Resulting Agency Comment Spec In Lab Minnie FRENCH HEMATOLOGY CECILIO ALEMAN [facility] [place] [address] * (ABNORMAL) Basic Metabolic Panel (non-fasting) (02/20/2024 4:23 AM EDT) Glucose Lvl 113 65 - 199 mg/dL [facility] Comment:Diabetes: >=200 mg/d L plus symptoms BUN 20 10 - 20 mg/dL [facility] Comment:result rechecked-KS Creatinine 0.71(L) 0.80 - 1.50 mg/dL [facility] Sodium 135 135 - 145 mmol/L [facility] Potassium 3.9 3.5 - 5.0 mmol/L [facility] Comment: Please note: ??Patients with WBC >100,000 may have falsely elevated Potassium levels. ??For accurate Potassium quantification in these patients send serum separator tube (gold top) for subsequent determinations. ??Contact the Clinical Chemistry Laboratory if there are any questions. Chloride 102 98 - 107 mmol/L [facility] CO2 25 22 - 31 mmol/L [facility] Anion Gap 8 5 - 15 mmol/L [facility] Calcium 8.7 8.5 - 10.5 mg/dL [facility] Comment:result rechecked-KS Estimated GFR 102 >=60 mL/min/1. 73 m?? [facility] Comment: This patient's estimated [...] MD CHEMISTRY ORDERABLE S Performing Organization Address [facility] de Phone Number [facility] [place] [address] * Potassium (02/19/2024 3:57 AM EDT) [facility] Potassium 4.3 3.5 - 5.0 mmol/L [facility] Comment: Please note: ??Patients [...] MD CHEMISTRY ORDERABLE S Performing Organization Address [facility] Co de Phone Number [facility] [place] [address] * POCT Glucose (02/18/2024 8:24 AM EDT) POC Glucose 157 65 - 199 mg/dL [facility] Comment: Supplemental ranges: <140 mg/dL before meals <180 mg/dL all other times of the day Blood 02/18/2024 8:24 AM EDT 02/18/2024 8:24 AM EDT Hayder Graham MD POINT OF CARE TEST ORDERABLES [facility] [place] [address] * Scan, Peripheral Blood (02/18/2024 1:40 AM EDT) Pathologist [facility] Plat Estimate Decreased [facility] RBC Morphology Normal [facility] Blood 02/18/2024 1:40 AM EDT 02/18/2024 1:56 AM EDT Narrative Resulting Agency Comment Spec In Lab Neftali FRENCH HEMATOLOGY ORDER OLE Performing Organization Address City/[facility]/ZIP Co de Phone Number [facility] [place] [address] * (ABNORMAL) Differential, Automated (02/18/2024 1:40 AM EDT) [facility] Neutrophils % 87.1 % [facility] Neutr Abs (ANC) 15.03(H) 1.70 - 6.10 x10(3)/mc L [facility] Lymphocytes % 3.0 % [facility] Lymphocytes Abs 0.5(L) 0.9 - 3.2 x10(3)/mc L [facility] Monocytes % 9.1 % [facility] Monocyte Abs 1.6(H) 0.3 - 0.9 x10(3)/mc L [facility] Eosinophils % 0.0 % [facility] Eosinophils Abs 0.0 0.0 - 0.4 x10(3)/mc L [facility] Basophils % 0.2 % [facility] Basophils Abs 0.0 0.0 - 0.1 x10(3)/mc L [facility] Immature Gran % 0.60 % [facility] Comment: Immature granulocytes(IG's)percentage and absolute count will include metamyelocytes, myelocytes, and promyelocytes. Blood smears from CBCs yielding IG's will be scanned manually for concordance. If this scan disagrees with the automated IG or if promyelocytes are noted, a manual differential will be performed. [place] Gran Abs 0.10(H) 0.00 - 0.04 x10(3)/mc L [facility] Blood 02/18/2024 1:40 AM EDT 02/18/2024 1:56 AM EDT Narrative Resulting Agency Comment Spec In Lab Neftali FRENCH HEMATOLOGY ORDER OLE [facility] [place] [address] * (ABNORMAL) Hemogram (02/18/2024 1:40 AM EDT) WBC 17.2(H) 4.0 - 9.5 x10(3)/[facility] RBC 4.71 4.58 - 5.54 x10(6)/[facility] Hemoglobin 13.7 13.7 - 16.5 g/dL [facility] Hematocrit 39.2(L) 40.5 - 48.5 % [facility] MCV 83.2 82.9 - 93.1 fL [facility] MCH 29.1 27.5 - 32.1 pg [facility] MCHC 34.9 32.0 - 35.7 g/dL [facility] Platelets 147 145 - 357 x10(3)/[facility] RDWSD 39.9 36.0 - 45.0 fL [facility] RDWCV 13.2 11.4 - 13.8 % [facility] MPV 9.9 7.6 - 12.9 fL [facility] nRBC % Auto 0.0 % [facility] nRBC Abs Auto 0.000 0.000 - 0.000 x10(3)/[facility] Blood 02/18/2024 1:40 AM EDT 02/18/2024 1:56 AM EDT Narrative Resulting Agency Comment Spec In Lab Neftali FRENCH HEMATOLOGY ORDER OLE [facility] [place] [address] * (ABNORMAL) Basic Metabolic Panel (non-fasting) (02/18/2024 1:40 AM EDT) Glucose Lvl 176 65 - 199 mg/dL [facility] Comment:Diabetes: >=200 mg/d L plus symptoms BUN 10 10 - 20 mg/dL [facility] Creatinine 0.65(L) 0.80 - 1.50 mg/dL [facility] Sodium 135 135 - 145 mmol/L [facility] Potassium 4.2 3.5 - 5.0 mmol/L [facility] Comment: Please note: ??Patients with WBC >100,000 may have falsely elevated Potassium levels. ??For accurate Potassium quantification in these patients send serum separator tube (gold top) for subsequent determinations. ??Contact the Clinical Chemistry Laboratory if there are any questions. Chloride 106 98 - 107 mmol/L [facility] CO2 20(L) 22 - 31 mmol/L [facility] Anion Gap 9 5 - 15 mmol/L [facility] Calcium 7.6(L) 8.5 - 10.5 mg/dL [facility] Estimated GFR 105 >=60 mL/min/1. 73 m?? [facility] Comment: This patient's estimated [...] MD CHEMISTRY ORDERABLE S Performing Organization Address City/[facility]/ZIP Co de Phone Number [facility] [place] [address] * (ABNORMAL) Troponin (02/18/2024 1:40 AM EDT) Troponin-T HS 342(H) <=22 ng/L [facility] Comment: This patient's troponin [...] troponin value can be found in the [facility] Test Catalog Troponin - [facility] Test Catalog Reference: Fourth [place] Definition of Myocardial Infarction. Journal of the [place] [employer] 2018;72:2692-4242 Blood 02/18/2024 1:40 AM EDT 02/18/2024 1:56 AM EDT Narrative Resulting Agency Comment Spec In Lab Hayder Graham MD CHEMISTRY ORDERABLE S [facility] [place] [address] * POCT Glucose (02/17/2024 8:13 PM EDT) POC Glucose 142 65 - 199 mg/dL [facility] Comment: Supplemental ranges: <140 mg/dL before meals <180 mg/dL all other times of the day Blood 02/17/2024 8:13 PM EDT 02/17/2024 8:13 PM EDT Hayder Graham MD POINT OF CARE TEST ORDERABLES Performing Organization Address [facility] Co de Phone Number [facility] [place] [address] * POCT Glucose (02/17/2024 5:42 PM EDT) POC Glucose 160 65 - 199 mg/dL [facility] Comment: Supplemental ranges: <140 mg/dL before meals <180 mg/dL all other times of the day Blood 02/17/2024 5:42 PM EDT 02/17/2024 5:42 PM EDT Hayder Graham MD POINT OF CARE TEST ORDERABLES Performing Organization Address [facility] Co de Phone Number [facility] [place] [address] * Hemoglobin (02/17/2024 5:42 PM EDT) Hemoglobin 13.7 13.7 - 16.5 g/dL [facility] Blood 02/17/2024 5:42 PM EDT 02/17/2024 6:10 PM EDT Narrative Resulting Agency Comment Spec In Lab Hayder Graham MD HEMATOLOGY ORDERABL ES Performing Organization Address [facility]/ZIP Co de Phone Number [facility] [place] [address] * Potassium (02/17/2024 5:42 PM EDT) Potassium 4.3 3.5 - 5.0 mmol/L [facility] Comment: Please note: ??Patients [...] [place] Co de Phone Number [facility] [place] [address] * (ABNORMAL) BLOOD GAS 2 ARTERIAL (02/17/2024 4:18 PM EDT) pH Art 7.34(L) 7.35 - 7.45 [facility] pCO2 Art 40 35 - 45 mmHg [facility] pO2 Art 78(L) 85 - 104 mmHg [facility] HCO3 Art 20.8 20.0 - 26.0 mmol/L [facility] BE Art -5.1(L) -3.0 - 3.0 mmol/L [facility] Hgb Blood Gas 14.6 13.7 - 16.5 g/dL [facility] O2HB Art 93.0(L) 94.0 - 97.0 % [facility] COHB Art 0.3 % [facility] Comment: Nonsmokers: 0.5-1.5% COHB Smokers: Variable, but usually less than 10% Toxic: 20-30% COHB Lethal: Greater than 60% COHB METHB Art 0.8 <=1.5 % [facility] Na Whole Blood 136 135 - 145 mmol/L [facility] K Whole Blood 4.1 3.5 - 5.0 mmol/L [facility] Comment: Please note: Patients with WBC >100,000 may have falsely elevated Potassium levels. Contact the Clinical Chemistry Laboratory if there are any questions. ICa Whole Blood 1.10(L) 1.15 - 1.33 mmol/L [facility] Comment: Note: ??Total bilirubin higher than 20 mg/dL may lead to falsely low ionized calcium. CL Whole Blood 105 98 - 107 mmol/L [facility] Gluc Whole Bld 159 65 - 199 mg/dL [facility] Comment:Diabetes: >=200 mg/d L plus symptoms. Lactate WB 1.2 0.5 - 2.2 mmol/L [facility] FIO2 Art 40 % [facility] PF Ratio Art 195 [facility] Blood 02/17/2024 4:18 PM EDT 02/17/2024 4:18 PM EDT Hayder Graham MD CHEMISTRY ORDERABLE S [facility] [place] [address] * XR Chest One View (02/17/2024 1:44 PM EDT) [facility] WORKSTATION ID [id number] RAD Anatomical Region Laterality Modality Chest N/A Digital Radiogra phy Impressions 02/17/2024 2:12 PM EDT 1. ??No definite pleural fluid collection or pneumothorax. 2. ??Right IJ Bonesteel-Kaila catheter tip terminates in a descending branch of the right pulmonary artery. Suggest catheter retraction. 3. ??Additional support lines and tubes as above. Thank you for letting us participate in the care of this patient. ??If you are a health care provider and have any questions regarding this report, please contact the number below. ??For patients who have questions please contact the health child care director that requested your imaging first. ? Electronically signed by: Denzel Hankins MD, [facility] ??([phone]), at 02/17/2024 2:12 PM Narrative 02/17/2024 2:12 PM EDT EXAMINATION: XR CHEST ONE VIEW CLINICAL HISTORY: s/p avr/cabg eval effusions TECHNIQUE: 1 view of the chest COMPARISON: Chest x-ray 01/09/2024, chest CT 02/03/2024 FINDINGS: ET tube tip terminates 5.2 cm above the carlos. Right IJ Bonesteel-Kaila catheter tip terminates in a descending branch [...] 5.2 cm above the carlos. Right IJ Bonesteel-Ganzcatheter tip terminates in a descending branch of [...] fluid collection or pneumothorax. 2. Right IJ Bonesteel-Kaila catheter tip terminates in a descending branch ofthe right pulmonary artery. Suggest catheter retraction. 3. Additional support lines and tubes as above. Thank you for letting us participate in the care of this patient. If youare a health care provider and have any questions regarding this report,please contact the number below. For patients who have questions please contactthe health child care director that requested your imaging first. Hayder Graham MD IMG DX ORDERABLES * (ABNORMAL) BLOOD GAS 2 ARTERIAL (02/17/2024 1:31 PM EDT) pH Art 7.35 7.35 - 7.45 [facility] pCO2 Art 39 35 - 45 mmHg [facility] pO2 Art 320(H) 85 - 104 mmHg [facility] HCO3 Art 21.4 20.0 - 26.0 mmol/L [facility] BE Art -4.2(L) -3.0 - 3.0 mmol/L [facility] Hgb Blood Gas 14.1 13.7 - 16.5 g/dL [facility] O2HB Art 97.9(H) 94.0 - 97.0 % [facility] COHB Art 0.3 % [facility] Comment: Nonsmokers: 0.5-1.5% COHB Smokers: Variable, but usually less than 10% Toxic: 20-30% COHB Lethal: Greater than 60% COHB METHB Art 0.7 <=1.5 % [facility] Na Whole Blood 137 135 - 145 mmol/L [facility] K Whole Blood 4.2 3.5 - 5.0 mmol/L [facility] Comment: Please note: Patients with WBC >100,000 may have falsely elevated Potassium levels. Contact the Clinical Chemistry Laboratory if there are any questions. ICa Whole Blood 1.13(L) 1.15 - 1.33 mmol/L [facility] Comment: Note: ??Total bilirubin higher than 20 mg/dL may lead to falsely low ionized calcium. CL Whole Blood 108(H) 98 - 107 mmol/L [facility] Gluc Whole Bld 136 65 - 199 mg/dL [facility] Comment:Diabetes: >=200 mg/d L plus symptoms. Lactate WB 1.1 0.5 - 2.2 mmol/L [facility] FIO2 Art 100 % [facility] PF Ratio Art 320 [facility] Blood 02/17/2024 1:31 PM EDT 02/17/2024 1:31 PM EDT Hayder Graham MD CHEMISTRY ORDERABLE S Performing Organization Address [facility] Co de Phone Number [facility] [place] [address] * (ABNORMAL) Coox2 (02/17/2024 1:21 PM EDT) pO2 Coox 44 mmHg [facility] Hgb Blood Gas 13.1(L) 13.7 - 16.5 g/dL [facility] O2HB Coox 76.4 % [facility] COHB Coox 0.3 % [facility] Comment: Nonsmokers: 0.5-1.5% COHB Smokers: Variable, but usually less than 10% Toxic: 20-30% COHB Lethal: Greater than 60% COHB METHB Coox 0.8 <=1.5 % [facility] Source Coox Mixed Venous [facility] Blood 02/17/2024 1:21 PM EDT 02/17/2024 1:21 PM EDT Hayder Graham MD CHEMISTRY ORDERABLE S Performing Organization Address [facility] Co de Phone Number [facility] [place] [address] * (ABNORMAL) BLOOD GAS 2 ARTERIAL (02/17/2024 12:14 PM EDT) pH Art 7.39 7.35 - 7.45 [facility] pCO2 Art 40 35 - 45 mmHg [facility] pO2 Art 338(H) 85 - 104 mmHg [facility] HCO3 Art 23.7 20.0 - 26.0 mmol/L [facility] BE Art -1.3 -3.0 - 3.0 mmol/L [facility] Hgb Blood Gas 11.0(L) 13.7 - 16.5 g/dL [facility] O2HB Art 98.8(H) 94.0 - 97.0 % [facility] COHB Art 0.3 % [facility] Comment: Nonsmokers: 0.5-1.5% COHB Smokers: Variable, but usually less than 10% Toxic: 20-30% COHB Lethal: Greater than 60% COHB METHB Art 0.3 <=1.5 % [facility] Na Whole Blood 135 135 - 145 mmol/L [facility] K Whole Blood 5.1(H) 3.5 - 5.0 mmol/L [facility] Comment: Please note: Patients with WBC >100,000 may have falsely elevated Potassium levels. Contact the Clinical Chemistry Laboratory if there are any questions. ICa Whole Blood 1.13(L) 1.15 - 1.33 mmol/L [facility] Comment: Note: ??Total bilirubin higher than 20 mg/dL may lead to falsely low ionized calcium. CL Whole Blood 106 98 - 107 mmol/L [facility] Gluc Whole Bld 132 65 - 199 mg/dL [facility] Comment:Diabetes: >=200 mg/d L plus symptoms. Lactate WB 1.4 0.5 - 2.2 mmol/L [facility] Blood 02/17/2024 12:1 4 PM EDT 02/17/2024 12:14 PM EDT Hayder Graham MD CHEMISTRY ORDERABLE S Performing Organization Address [facility]/ZIP Co de Phone Number [facility] [place] [address] * (ABNORMAL) Fibrinogen (02/17/2024 12:10 PM EDT) Fibrinogen 154(L) 200 - 393 mg/dL [facility] Comment: OR Result called by ?? LOMARL OR Results read back by: ? alondra pagan at 2024-02-17 12:41:48 A fibrinogen level >100 mg/dL is adequate for hemostasis in most patients without underlying bleeding disorders. Blood 02/17/2024 12:1 0 PM EDT 02/17/2024 12:19 PM EDT Narrative Resulting Agency Comment Spec In Lab Tara York MD HEMATOLOGY ORDERABLE S Performing Organization Address [facility] Co de Phone Number [facility] [place] [address] * (ABNORMAL) Thrombin time (02/17/2024 12:10 PM EDT) Thrombin Time 18(H) 10 - 17 sec [facility] Comment: OR Result called [...] MD HEMATOLOGY ORDERABLE S Performing Organization Address [facility]/ZIP Co de Phone Number [facility] [place] [address] * APTT (02/17/2024 12:10 PM EDT) PTT 33 25 - 37 sec [facility] Comment: OR Result called [...] MD HEMATOLOGY ORDERABLE S Performing Organization Address [facility] Co de Phone Number [facility] [place] [address] * (ABNORMAL) Prothrombin Time (02/17/2024 12:10 PM EDT) PT 16.7(H) 9.4 - 12.5 sec [facility] Comment: OR Result called by ?? LOMARL OR Results read back by: ? alondra pagan at 2024-02-17 12:41:48 INR 1.5 [facility] Comment: OR Result called by [...] MD HEMATOLOGY ORDERABLE S Performing Organization Address City/[facility]/ZIP Co de Phone Number [facility] [place] [address] * (ABNORMAL) Hemogram (02/17/2024 12:10 PM EDT) [facility] WBC 11.1(H) 4.0 - 9.5 x10(3)/[facility] LABORATORY RBC 3.50(L) 4.58 - 5.54 x10(6)/[facility] LABORATORY Hemoglobin 10.4(L) 13.7 - 16.5 g/dL [facility] Hematocrit 30.2(L) 40.5 - 48.5 % [facility] Comment: This result has been called to ALONDRA PAGAN by Eddie López on 02 17 2024 at 1226, and has been read back. MCV 86.3 82.9 - 93.1 [facility] LABORATORY MCH 29.7 27.5 - 32.1 pg [facility] MCHC 34.4 32.0 - 35.7 g/dL [facility] Platelets 118(L) 145 - 357 x10(3)/[facility] LABORATORY RDWSD 40.2 36.0 - 45.0 [facility] LABORATORY RDWCV 12.8 11.4 - 13.8 % [facility] MPV 9.5 7.6 - 12.9 [facility] LABORATORY nRBC % Auto 0.0 % [facility] nRBC Abs Auto 0.000 0.000 - 0.000 x10(3)/[facility] LABORATORY Blood 02/17/2024 12:1 0 PM EDT 02/17/2024 12:19 PM EDT Narrative Resulting Agency Comment Spec In Lab Tara York MD HEMATOLOGY ORDERABLE S [facility] [place] [address] * (ABNORMAL) BLOOD GAS 2 ARTERIAL (02/17/2024 11:43 AM EDT) pH Art 7.38 7.35 - 7.45 [facility] pCO2 Art 40 35 - 45 mmHg [facility] pO2 Art 304(H) 85 - 104 mmHg [facility] HCO3 Art 23.2 20.0 - 26.0 mmol/L [facility] BE Art -1.9 -3.0 - 3.0 mmol/L [facility] Hgb Blood Gas 11.1(L) 13.7 - 16.5 g/dL [facility] O2HB Art 98.6(H) 94.0 - 97.0 % [facility] COHB Art 0.3 % [facility] Comment: Nonsmokers: 0.5-1.5% COHB Smokers: Variable, but usually less than 10% Toxic: 20-30% COHB Lethal: Greater than 60% COHB METHB Art 0.3 <=1.5 % [facility] Na Whole Blood 133(L) 135 - 145 mmol/L [facility] K Whole Blood 6.2(Critic al) 3.5 - 5.0 mmol/L [facility] Comment: Noted by instrument worker. Please note: Patients with WBC >100,000 may have falsely elevated Potassium levels. Contact the Clinical Chemistry Laboratory if there are any questions. ICa Whole Blood 0.97(L) 1.15 - 1.33 mmol/L [facility] Comment: Note: ??Total bilirubin higher than 20 mg/dL may lead to falsely low ionized calcium. CL Whole Blood 104 98 - 107 mmol/L [facility] Gluc Whole Bld 128 65 - 199 mg/dL [facility] Comment:Diabetes: >=200 mg/d L plus symptoms. Lactate WB 1.1 0.5 - 2.2 mmol/L [facility] Blood 02/17/2024 11:4 3 AM EDT 02/17/2024 11:43 AM EDT Hayder Graham MD CHEMISTRY ORDERABLE S [facility] [place] [address] * (ABNORMAL) BLOOD GAS 2 ARTERIAL (02/17/2024 11:08 AM EDT) pH Art 7.38 7.35 - 7.45 [facility] pCO2 Art 38 35 - 45 mmHg [facility] pO2 Art 334(H) 85 - 104 mmHg [facility] HCO3 Art 22.0 20.0 - 26.0 mmol/L [facility] BE Art -3.2(L) -3.0 - 3.0 mmol/L [facility] Hgb Blood Gas 10.8(L) 13.7 - 16.5 g/dL [facility] O2HB Art 98.7(H) 94.0 - 97.0 % [facility] COHB Art 0.3 % [facility] Comment: Nonsmokers: 0.5-1.5% COHB Smokers: Variable, but usually less than 10% Toxic: 20-30% COHB Lethal: Greater than 60% COHB METHB Art 0.3 <=1.5 % [facility] Na Whole Blood 131(L) 135 - 145 mmol/L [facility] K Whole Blood 6.4(Critic al) 3.5 - 5.0 mmol/L [facility] Comment: Noted by instrument worker. Please note: Patients with WBC >100,000 may have falsely elevated Potassium levels. Contact the Clinical Chemistry Laboratory if there are any questions. ICa Whole Blood 0.98(L) 1.15 - 1.33 mmol/L [facility] Comment: Note: ??Total bilirubin higher than 20 mg/dL may lead to falsely low ionized calcium. CL Whole Blood 104 98 - 107 mmol/L [facility] Gluc Whole Bld 127 65 - 199 mg/dL [facility] Comment:Diabetes: >=200 mg/d L plus symptoms. Lactate WB 1.0 0.5 - 2.2 mmol/L [facility] Blood 02/17/2024 11:0 8 AM EDT 02/17/2024 11:08 AM EDT Hayder Graham MD CHEMISTRY ORDERABLE S Performing Organization Address [facility]/ZIP Co de Phone Number [facility] [place] [address] * (ABNORMAL) Hemoglobin and Hematocrit, blood (02/17/2024 11:04 AM EDT) Hemoglobin 9.6(L) 13.7 - 16.5 g/dL [facility] Hematocrit 28.0(L) 40.5 - 48.5 % [facility] Comment: This result has been called to ALONDRA PAGAN by Eddie López on 02 17 2024 at 1120, and has been read back. Blood 02/17/2024 11:0 4 AM EDT 02/17/2024 11:12 AM EDT Narrative Resulting Agency Comment Spec In Lab Hayder Graham MD HEMATOLOGY ORDERABL ES Performing Organization Address [facility]/ZIP Co de Phone Number [facility] [place] [place] [address] * (ABNORMAL) Platelet count (02/17/2024 11:04 AM EDT) Platelets 106(L) 145 - 357 x10(3)/mc L [facility] Plat Immature % 1.6 0.0 - 7.4 % [facility] Comment: Limitation of the Immature Platelet Fraction (IPF)-May be less reliable when the platelet count is less than 81l390/uL due to statistical imprecision. The IPF value [...] in a decreased state of production. References: [employer] The Clinical Value of the Immature Platelet Fraction (IPF) in Cell Recovery Document Number [id number] 03/2011 [employer] The Role of the Immature Platelet Fraction (IPF) in the Differential Diagnosis of Thrombocytopenia, Document [id number] V002/15/14 Blood 02/17/2024 11:0 4 AM EDT 02/17/2024 11:12 AM EDT Narrative Resulting Agency Comment Spec In Lab Hayder Graham MD HEMATOLOGY ORDERABL ES Performing Organization Address [facility] Co de Phone Number [facility] [place] [address] * (ABNORMAL) Fibrinogen (02/17/2024 11:04 AM EDT) Fibrinogen 149(L) 200 - 393 mg/dL [facility] Comment: OR Result called by ?? SALVLT OR Results read back by: ? Alondra Pagan at 2024-02-17 11:30:47 A fibrinogen level >100 mg/dL is adequate for hemostasis in most patients without underlying bleeding disorders. Blood 02/17/2024 11:0 4 AM EDT 02/17/2024 11:12 AM EDT Narrative Resulting Agency Comment Spec In Lab Hayder Graham MD HEMATOLOGY ORDERABL ES Performing Organization Address [facility] Co de Phone Number [facility] [place] [place] [address] * (ABNORMAL) BLOOD GAS 2 ARTERIAL (02/17/2024 10:41 AM EDT) pH Art 7.37 7.35 - 7.45 [facility] pCO2 Art 44 35 - 45 mmHg [facility] pO2 Art 335(H) 85 - 104 mmHg [facility] HCO3 Art 24.9 20.0 - 26.0 mmol/L [facility] BE Art -0.4 -3.0 - 3.0 mmol/L [facility] Hgb Blood Gas 11.5(L) 13.7 - 16.5 g/dL [facility] O2HB Art 98.9(H) 94.0 - 97.0 % [facility] COHB Art 0.1 % [facility] Comment: Nonsmokers: 0.5-1.5% COHB Smokers: Variable, but usually less than 10% Toxic: 20-30% COHB Lethal: Greater than 60% COHB METHB Art 0.3 <=1.5 % [facility] Na Whole Blood 132(L) 135 - 145 mmol/L [facility] K Whole Blood 5.9(H) 3.5 - 5.0 mmol/L [facility] Comment: Please note: Patients with WBC >100,000 may have falsely elevated Potassium levels. Contact the Clinical Chemistry Laboratory if there are any questions. ICa Whole Blood 1.02(L) 1.15 - 1.33 mmol/L [facility] Comment: Note: ??Total bilirubin higher than 20 mg/dL may lead to falsely low ionized calcium. CL Whole Blood 104 98 - 107 mmol/L [facility] Gluc Whole Bld 129 65 - 199 mg/dL [facility] Comment:Diabetes: >=200 mg/d L plus symptoms. Lactate WB 1.1 0.5 - 2.2 mmol/L [facility] Blood 02/17/2024 10:4 1 AM EDT 02/17/2024 10:41 AM EDT Hayder Graham MD CHEMISTRY ORDERABLE S [facility] [place] [place] [address] * (ABNORMAL) BLOOD GAS 2 ARTERIAL (02/17/2024 10:06 AM EDT) pH Art 7.38 7.35 - 7.45 [facility] pCO2 Art 42 35 - 45 mmHg [facility] pO2 Art 329(H) 85 - 104 mmHg [facility] HCO3 Art 24.7 20.0 - 26.0 mmol/L [facility] BE Art -0.3 -3.0 - 3.0 mmol/L [facility] Hgb Blood Gas 11.0(L) 13.7 - 16.5 g/dL [facility] O2HB Art 99.0(H) 94.0 - 97.0 % [facility] COHB Art 0.3 % [facility] Comment: Nonsmokers: 0.5-1.5% COHB Smokers: Variable, but usually less than 10% Toxic: 20-30% COHB Lethal: Greater than 60% COHB METHB Art 0.3 <=1.5 % [facility] Na Whole Blood 132(L) 135 - 145 mmol/L [facility] K Whole Blood 6.0(H) 3.5 - 5.0 mmol/L [facility] Comment: Please note: Patients with WBC >100,000 may have falsely elevated Potassium levels. Contact the Clinical Chemistry Laboratory if there are any questions. ICa Whole Blood 0.97(L) 1.15 - 1.33 mmol/L [facility] Comment: Note: ??Total bilirubin higher than 20 mg/dL may lead to falsely low ionized calcium. CL Whole Blood 102 98 - 107 mmol/L [facility] Gluc Whole Bld 123 65 - 199 mg/dL [facility] Comment:Diabetes: >=200 mg/d L plus symptoms. Lactate WB 1.1 0.5 - 2.2 mmol/L [facility] Blood 02/17/2024 10:0 6 AM EDT 02/17/2024 10:06 AM EDT Hayder Graham MD CHEMISTRY ORDERABLE S [facility] [place] [address] * Surgical Pathology Report (02/17/2024 10:01 AM EDT) FINAL DIAGNOSIS (AP) [id number] ? [facility]; A The signing pathologist has (i) examined the relevant preparation(s) for the specimen(s) and (ii) rendered or confirmed the diagnosis(es). . ?Surgical Pathology DIAGNOSIS Aortic valve leaflets, excision: Valve leaflets with myxoid degeneration, nodular fibrosis and dystrophic calcifications. Electronically signed by: ?Lindsay FERNANDEZ, Livier Gonzalez Verified: ??02/24/2024 13:49 ??Pathologist Performed at: ??-[facility] Dept. of Pathology, [place] [address] Desktop Publisher: Job Brewer MD, FCAP, ??CLIA Certificate: [id number] SPECIMEN(S) SUBMITTED A - Aortic Valve Leaflets, [...] Sections Processing Blocks submitted for decalcification: A1. Seaweed Harvester sections in 1 cassette labeled A1. ??ajw 02/24/2024 1:49 PM EDT [facility] AORTIC STRUCTURE / Unknown 02/17/2024 10:01 AM EDT 02/17/2024 10:01 AM EDT Hayder Graham MD PATHOLOGY/CYTOLOGY ORDERABLES [facility] [place] [address] * Specimen to Pathology (02/17/2024 10:01 AM EDT) AP Specimen 02/17/2024 10:0 1 AM EDT 02/17/2024 10:01 AM EDT Narrative [facility] - 02/17/2024 10:01 AM EDT Specimen requisition ordered. ??Separate Pathology report to follow Hayder Graham MD PATHOLOGY/CYTOLOGY ORDERABLES Performing Organization Address City/[facility] [place] [address] * (ABNORMAL) BLOOD GAS 2 ARTERIAL (02/17/2024 9:35 AM EDT) pH Art 7.33(L) 7.35 - 7.45 [facility] pCO2 Art 35 35 - 45 mmHg [facility] pO2 Art 318(H) 85 - 104 mmHg [facility] HCO3 Art 17.9(L) 20.0 - 26.0 mmol/L [facility] BE Art -8.0(L) -3.0 - 3.0 mmol/L [facility] Hgb Blood Gas 11.0(L) 13.7 - 16.5 g/dL [facility] O2HB Art 98.8(H) 94.0 - 97.0 % [facility] COHB Art 0.3 % [facility] Comment: Nonsmokers: 0.5-1.5% COHB Smokers: Variable, but usually less than 10% Toxic: 20-30% COHB Lethal: Greater than 60% COHB METHB Art 0.3 <=1.5 % [facility] Na Whole Blood 131(L) 135 - 145 mmol/L [facility] K Whole Blood 5.8(H) 3.5 - 5.0 mmol/L [facility] Comment: Please note: Patients with WBC >100,000 may have falsely elevated Potassium levels. Contact the Clinical Chemistry Laboratory if there are any questions. ICa Whole Blood 0.98(L) 1.15 - 1.33 mmol/L [facility] Comment: Note: ??Total bilirubin higher than 20 mg/dL may lead to falsely low ionized calcium. CL Whole Blood 101 98 - 107 mmol/L [facility] Gluc Whole Bld 122 65 - 199 mg/dL [facility] Comment:Diabetes: >=200 mg/d L plus symptoms. Lactate WB 0.8 0.5 - 2.2 mmol/L [facility] Blood 02/17/2024 9:35 AM EDT 02/17/2024 9:35 AM EDT Hayder Graham MD CHEMISTRY ORDERABLE S [facility] [place] [address] * (ABNORMAL) BLOOD GAS 2 VENOUS (02/17/2024 9:34 AM EDT) pH Jose 7.22(Criti marquez) 7.32 - 7.42 [facility] Comment:Noted by instrument worker. pCO2 Jose 43 41 - 51 mmHg [facility] Comment:Noted by instrument worker. pO2 Jose 57(H) 25 - 40 mmHg [facility] Comment:Noted by instrument worker. HCO3 Jose 17.1 mmol/L [facility] Comment:Noted by instrument worker. BE Jose -10.6 mmol/L [facility] Comment:Noted by instrument worker. Hgb Blood Gas 11.2(L) 13.7 - 16.5 g/dL [facility] Comment:Noted by instrument worker. O2HB Jose 86.5 % [facility] Comment:Noted by instrument worker. COHB Jose 0.3 % [facility] Comment: Noted by instrument worker. Nonsmokers: 0.5-1.5% COHB Smokers: Variable, but usually less than 10% Toxic: 20-30% COHB Lethal: Greater than 60% COHB METHB Jose 0.0 <=1.5 % [facility] Comment:Noted by instrument worker. Na Whole Blood 156(H) 135 - 145 mmol/L [facility] Comment:Noted by instrument worker. K Whole Blood 5.5(H) 3.5 - 5.0 mmol/L [facility] Comment: Noted by instrument worker. Please note: Patients with WBC >100,000 may have falsely elevated Potassium levels. Contact the Clinical Chemistry Laboratory if there are any questions. ICa Whole Blood 1.03(L) 1.15 - 1.33 mmol/L [facility] Comment: Noted by instrument worker. Note: ??Total bilirubin higher than 20 mg/dL may lead to falsely low ionized calcium. CL Whole Blood 100 98 - 107 mmol/L [facility] Comment:Noted by instrument worker. Gluc Whole Bld 132 65 - 199 mg/dL [facility] Comment: Noted by instrument worker. Diabetes: >=200 mg/dL plus symptoms Lactate WB 1.0 0.5 - 2.2 mmol/L [facility] Comment:Noted by instrument worker. BGas Source Venous [facility] Blood 02/17/2024 9:34 AM EDT 02/17/2024 9:34 AM EDT Hayder Graham MD CHEMISTRY ORDERABLE S [facility] [place] [address] * (ABNORMAL) BLOOD GAS 2 ARTERIAL (02/17/2024 8:07 AM EDT) pH Art 7.43 7.35 - 7.45 [facility] pCO2 Art 34(L) 35 - 45 mmHg [facility] pO2 Art 581(H) 85 - 104 mmHg [facility] HCO3 Art 21.7 20.0 - 26.0 mmol/L [facility] BE Art -2.6 -3.0 - 3.0 mmol/L [facility] Hgb Blood Gas 14.5 13.7 - 16.5 g/dL [facility] O2HB Art 99.0(H) 94.0 - 97.0 % [facility] COHB Art 0.4 % [facility] Comment: Nonsmokers: 0.5-1.5% COHB Smokers: Variable, but usually less than 10% Toxic: 20-30% COHB Lethal: Greater than 60% COHB METHB Art 0.3 <=1.5 % [facility] Na Whole Blood 139 135 - 145 mmol/L [facility] K Whole Blood 4.0 3.5 - 5.0 mmol/L [facility] Comment: Please note: Patients with WBC >100,000 may have falsely elevated Potassium levels. Contact the Clinical Chemistry Laboratory if there are any questions. ICa Whole Blood 1.09(L) 1.15 - 1.33 mmol/L [facility] Comment: Note: ??Total bilirubin higher than 20 mg/dL may lead to falsely low ionized calcium. CL Whole Blood 106 98 - 107 mmol/L [facility] Gluc Whole Bld 100 65 - 199 mg/dL [facility] Comment:Diabetes: >=200 mg/d L plus symptoms. Lactate WB 1.3 0.5 - 2.2 mmol/L [facility] Blood 02/17/2024 8:07 AM EDT 02/17/2024 8:07 AM EDT Hayder Graham MD CHEMISTRY ORDERABLE S [facility] [place] [address] * POCT Glucose (02/17/2024 6:38 AM EDT) POC Glucose 98 65 - 199 mg/dL [facility] Comment: Supplemental ranges: <140 mg/dL before meals <180 mg/dL all other times of the day Blood 02/17/2024 6:38 AM EDT 02/17/2024 6:38 AM EDT Hayder Graham MD POINT OF CARE TEST ORDERABLES Performing Organization Address [facility]/State/ZIP Co de Phone Number [facility] [place] [address] * Transesophageal Echo/OR (02/17/2024 6:33 AM EDT) [...] Vincent RN) [phone] (Given - Provider: Mishel Merirll, COLBY) 0835 (Given - Provider: Jazlyn Maldonado, [...] Polo Britton RN)0817 (Given - Provider: Reilly Vicnent RN)1409 (Given - Provider: Ingrid Menjivar RN)[phone] [...] Routine documented in this encounter Care Teams Veterinary Nurse Relationship Specialty Start Date End Date Aparna Jordan APRN PCP - General Family Medicine 10/21/23 documented as of this encounter
--- OUTSIDE RECORDS SUMMARY | 2024-05-08 08:04 | XMS_ITS | Encounter Summary ---
Author Organization [facility] [place] [address] Care Team Providers Care General Administrator Name Role Phone Vanessa Christian Lane DOTSON Primary Care Provider [phone] Reason for Referral * Diagnostic Test (Routine) - Closed Specialty Diagnoses / Procedures Referred By Contac t Referred To Contact Radiology Diagnoses Nonrheumatic aortic valve stenosis Procedures CT Chest wo Contrast (Generic) Louisa Cho PA [facility] [place] [address] [facility] [address] Referral ID Status Reason Start Date Expiration Date V isits Requested Visits Authorized [id number] Closed Specialty Service Requested 01/10/2024 07/11/2025 1 1 Reason for Visit * Diagnostic Test (Routine) - Closed Specialty Diagnoses / Procedures Referred By Contac t Referred To Contact Radiology Diagnoses Nonrheumatic aortic valve stenosis Procedures CT Chest wo Contrast (Generic) Louisa Cho PA [facility] [place] [address] [facility] [address] Referral ID Status Reason Start Date Expiration Date V isits Requested Visits Authorized [id number] Closed Specialty Service Requested 01/10/2024 07/11/2025 1 1 Encounter Details Date Type Department Care Team (Latest Contact Info) Description 02/03/2024 7:36 AM EDT - 02/03/2024 8:05 AM EDT Hospital Encounter CT Scan at [facility] [place] [address] Zak Farmer MD [facility] [place] [address] Nonrheumatic aortic valve stenosis Discharge Disposition: Home Social History Tobacco Use Types Packs/Day Years Used Date Smoking Tobacco: Former Cigarettes Smokeless Tobacco: Never Comments:Quit 15 + years ago Alcohol Use Standard Drinks/Week Comments Yes 0 (1 standard drink = 0.6 oz pur e alcohol) rare [facility] Inpatient Questions Answer Date Recorded Does Anyone [...] AM EDT Office Visit Cardiology at [address] [place] [address] Neftali Ernandez MD [facility] [place] [address] documented as of this encounter Procedures Procedure Name Priority Date/Time Associated Diagnosis Comments CT CHEST WO CONTRAST (GENERIC) Routine 02/03/2024 7:44 AM EDT Nonrheumatic aortic valve stenosis documented in this encounter Results * CT Chest wo Contrast (Generic) (02/03/2024 7:44 AM EDT) Last Size WORKSTATION ID [id number] RAD Anatomical Region Laterality Modality Chest Computed [...] have questions please contact the health nurse healthcare manager that requested your imaging first. ? Electronically signed by: Rogerio Wright MD, [facility] ([phone]), at 02/03/2024 10:00 AM Narrative 02/03/2024 10:00 [...] nodule along the minor fissure (series [id number]) and a 8 mm right lower lobe [...] who have questions please contactthe health nurse healthcare manager that requested your imaging first. Electronically signed by: Rogerio Wright MD, [facility]([phone]), at 02/03/2024 10:00 AM Zak Farmer MD IMG CT ORDERABLES documented in this encounter Visit Diagnoses Diagnosis Nonrheumatic aortic valve stenosis Aortic valve disorders documented in this encounter Care Teams General Administrator Relationship Specialty Start Date End Date Vanessa Christian APRN PCP - General Family Medicine 10/21/23 documented as of this encounter
--- OUTSIDE RECORDS SUMMARY | 2024-05-08 08:04 | XMS_ITS | Encounter Summary ---
Author Organization [facility] Address [facility] [place] [address] Care Team Providers Care Rotary Soil Stabilizer Name Role Phone Vanessa Christian MAURI Primary Care Provider [phone] Encounter Details Date Type Department Care Team (Latest Contact Info) Description 01/09/2024 3:02 PM EDT - 01/09/2024 11:59 PM EDT Hospital Encounter XRay at [address] [place] [address] Zka Farmer MD [facility] [place] [address] Nonrheumatic aortic valve stenosis Discharge Disposition: Home Social History Tobacco Use Types Packs/Day Years Used Date Smoking Tobacco: Former Cigarettes Smokeless Tobacco: Never Comments:Quit 15 + years ago Alcohol Use Standard Drinks/Week Comments Yes 0 (1 standard drink = 0.6 oz pur e alcohol) rare [facility] Inpatient Questions Answer Date Recorded Prevent [...] 11:00 AM EDT Office Visit Cardiology at [address] [place] [address] Neftali Ernandez MD [facility] [place] [address] documented as of this encounter Procedures Procedure [...] have questions please contact the health rn urgent care that requested your imaging first. ? [...] who have questions please contactthe health rn urgent care that requested your imaging first. Zak Farmer MD IMG DX ORDERABLES documented in this encounter Visit Diagnoses Diagnosis Nonrheumatic aortic valve stenosis Aortic valve disorders documented in this encounter Care Teams Rotary Soil Stabilizer Relationship Specialty Start Date End Date Vanessa Christian APRN PCP - General Family Medicine 10/21/23 documented as of this encounter
--- OUTSIDE RECORDS SUMMARY | 2024-05-08 08:04 | XMS_ITS | Encounter Summary ---
Author Organization [facility] [place] [address] Care Team Providers Care Phd Intern Name Role Phone Vanessa Christian MAURI Primary Care Provider [phone] Reason for Visit * Auth/Cert (Routine) Specialty [...] ARTERIAL GRAFT (WRVU 7.93) Zak Farmer MD [facility] CARDIOTHORACIC [place] [address] [facility] Referral ID Status Reason Start Date Expiration Date Visits Re quested Visits Authorized [id number] 1 1 Encounter Details Date Type Department Care Team (Late st Contact Info) Description 02/17/2024 7:35 AM EDT Anesthesia Event Main Operating Room [facility] [phone] Roman York MD [facility] [place] [address] Anesthesia Record Procedure Summary Procedure Name Responsible [...] by Sadiq Woo RN PIV 02/17/24; 0715; [id number] catheter system; 18 gauge; cephalic vein (lateral [...] = 0.6 oz pur e alcohol) rare [facility] Utilities Answer Date Recorded In the past 12 months has th e electric, gas, oil, or water [employer] threatened to shut off services in your [...] place to sleep or slept in a longterm (including now)? No 02/18/2024 DH IPV Inpatient [...] Procedure Summary Date: 02/17/24 Room / Location: [facility] OR [address] [place] [address] MAIN OR Anesthesia Start: 734 Anesthesia Stop: [...] shown include unfiled device data. Patient Location: [facility] Level of Consciousness: Sedated (Pharmacologic/Intentional) Pain Management: [...] 08/14/2023 ??? Nevus of face 09/26/2023 Right anglican No past surgical history on file. Social [...] AM EDT Office Visit Cardiology at [address] [place] [address] Neftali Ernandez MD [facility] [place] [address] documented as of this encounter Visit [...] mg documented in this encounter Care Teams Phd Intern Relationship Specialty Start Date End Date Vanessa Christian APRN PCP - General Family Medicine 10/21/23 documented as of this encounter
--- OUTSIDE RECORDS SUMMARY | 2024-05-08 08:04 | XMS_ITS | Encounter Summary ---
Author Organization [facility] [place] [address] Care Team Providers Care Willow Machine Tender Name Role Phone Vanessa Christian MAURI Primary Care Provider [phone] Encounter Details Date Type Department Care Team (Late st Contact Info) Description 01/10/2024 Orders Only [employer] [place] [phone] Lawson Napoles PA [facility] [place] [address] Screening for cardiovascular condition; Aortic valve stenosis, [...] 11:00 AM EDT Office Visit Cardiology at [address] [place] [phone] Neftali Ernandez MD [facility] CARDIOLOGY [facility] [place] [address] documented as of this encounter Visit Diagnoses Diagnosis Screening for cardiovascular condition Screening for other and unspecified cardiovascular conditions Aortic valve stenosis, etiology of cardiac valve disease unspecified documented in this encounter Care Teams Willow Machine Tender Relationship Specialty Start Date End Date Vanessa Christian APRN PCP - General Family Medicine 10/21/23 documented as of this encounter
--- OUTSIDE RECORDS SUMMARY | 2024-05-08 08:04 | XMS_ITS | Encounter Summary ---
Author Organization [facility] [place] [address] Care Team Providers Care Desktop Publisher Name Role Phone Vanessa Christian MAURI Primary Care Provider [phone] Reason for Visit * Auth/Cert (Routine) Specialty [...] W RHC (WRVU 5.9) Rima Dickinson MD [facility] [place] [address] [facility] Referral ID Status Reason Start Date Expiration Date Visits Re quested Visits Authorized [id number] 1 1 Encounter Details Date Type Department Care Team (Late st Contact Info) Description 02/03/2024 10:00 AM EDT - 02/03/2024 11:00 AM EDT Surgery Associate [employer] [place] [address] Saira Lua MD [facility] [place] [address] CARDIAC CATHETERIZATION Social History Tobacco Use Types [...] lbs Follow-up Visits Follow up with your cyber forensics analyst in 2-4 weeks Access Site 'Black and Blue' and tenderness is expected during the first week Call if you noted a mass (lump) greater than the size of a ellis Call Office with any Questions and if you have any of the following Clarence Lane M.D Interventional Public [facility] Refrigerated National Truck Driver #: [phone] * Attachments The following attachments cannot be sent through Care Everywhere. * CAD (Coronary Artery Disease): General Info (Ghanaian) * Coronary Angiogram: Post-op (Ghanaian) documented in this encounter Medications at Time [...] Lane MD - 02/03/2024 11:48 AM EDT [facility] Interventional Cardiology Adult Pre-Procedure H&P Update: Cardiac Catheterization Karlos Anthony [id number] 1960 Chief Complaint: Aortic stenosis HPI: Mr. [...] is inthe chart Clarence Lane MD Inter[facility] Public [facility] 02/03/24 11:48 AM documented in this encounter Miscellaneous Notes * Brief Op Note - Clarence Lane MD - 02/03/2024 12:51 PM EDT Preliminary Cardiac Catheterization Procedure Note: Patient Name: Karlos Anthony : [id number] MR#: [id number] Case Date: 02/03/2024 Refrigerated National Truck Driver: Surgeon(s) and Role: * Saira Lua MD [...] 11:00 AM EDT Office Visit Cardiology at [address] [phone] Neftali Ernandez MD [facility] [place] [address] Scheduled Orders Name Type Priority Associated Diagnoses [...] Modality Other Narrative 02/12/2024 3:47 PM EDT ?[facility] ? Cardiac Catheterization/Intervention Report ? Patient Name: Patenaude, Karlos ? Procedure Date: 02/03/2024 ? A #: [id number] ? Primary Physician: Saira Lua ? Case #: [id number] ? File Name: [id number] ? Catheterization Order Number: [id number] ? [facility]ate [facility] ? Final Report [place], [place] ? Patient Name: ? Karlos Patenaude ? ID#: ?[id number] ? : ?1960 ? Procedure Date: ? February 03, 2024 ? Case #: ? [id number] ? Room: ? 5 ? Case Physician: [...] Procedure Note Saira Lua MD - 02/12/2024 [facility] Cardiac Catheterization/Intervention Report Patient Name: Karlos Anthony Procedure Date: 02/03/2024 A #: [id number] Primary Physician: Saira Lua Case #: [id number] File Name: [id number] Catheterization Order Number: [id number] [facility] FinalReport [place], [place] Patient Name: Karlos Anthony ID#:[id number] :1960 Procedure Date: February 03, 2024 Case [...] was designated as ASA Class III. The [facility] clinical frailty scale is 3: Managing Well. [...] (Bezet) 372 ms MUSE SYSTEM Calculated P Show Low 59 degrees MUSE SYSTEM Calculated R Show Low 34 degrees MUSE SYSTEM Calculated T Show Low 63 degrees MUSE SYSTEM INTERPRETATION Sinus bradycardia [...] MD) documented in this encounter Care Teams Desktop Publisher Relationship Specialty Start Date End Date Vanessa Christian, MAURI PCP - General Family Medicine 10/21/23 documented as of this encounter
--- OUTSIDE RECORDS SUMMARY | 2024-05-08 08:04 | XMS_ITS | Encounter Summary ---
[place] [address] Care Team Providers Care Bilingual Account Manager Name Role Phone Aparna Jordan MAURI Primary Care Provider [phone] Reason for Referral * Diagnostic Test (Routine) - New Request Specialty Diagnoses / Procedures Referred By Contac t Referred To Contact Cardiology Diagnoses S/P AVR Procedures Echocardiogram Transthoracic Neftali Menon PA [facility] [place] [address] [facility] [place] [address] Referral ID Status Reason Start Date Expiration Date Visits Requested Visits Authorized [id number] New Request Specialty Service Requested 02/24/2024 02/23/2025 1 1 * Consultation (Routine) - Authorized Specialty Diagnoses / Procedures Referred By Contac t Referred To Contact Cardiology Diagnoses S/P AVR Zak Graham MD [facility] [place] [address] Cardiac Rehab, [facility] [address] [place] [address] [place] [address] Referral ID Status Reason Start Date Expiration Date Visits Requested Visits Authorized [id number] Authorized Consult, Test & Treat 02/24/2024 08/22/2024 36 36 * Home Health Care (Routine) - Authorized Specialty Diagnoses / Procedures Referred By Sixto mendoza Referred To Contact Diagnoses S/P AVR Zak Graham MD [facility] [place] [address] Referral ID Status Reason Start Date Expiration Date Visits Requested Visits Authorized [id number] Authorized Consult, Test & Treat 02/24/2024 08/22/2024 [...] ARTERIAL GRAFT (WRVU 7.93) Zak Graham MD [facility] [place] [address] [facility] Referral ID Status Reason Start Date Expiration Date Visits Re quested Visits Authorized [id number] 1 1 Encounter Details Date Type Department Care Team (Latest Contact Info) Description 02/17/2024 5:43 AM EDT - 02/24/2024 11:23 AM EDT Hospital Encounter Heart and Vascular Unit Level 4 [place] [address] Zak Graham MD [facility] [place] [address] S/P AVR (Primary Dx); Aortic valve stenosis, [...] Patient Age: 63 y.o. Birthdate: 1960 Language: Lithuanian Race: White Ethnicity: Not nor Admit Date: 02/17/2024 Discharge Date: 02/24/24 Attending Physician: Zak Graham MD Follow-up Recommendations for Providers: Please continue routine management of cardiovascular risk factors including blood pressure, lipids,glucose, etc. Please note any changes to medications. Patient to follow up with PCP, Aparna Jordan APRN, in 1-2 weeks. Patient to follow up with University Relations Director, Neftali Ernandez MD , in 2 weeks. Patient to follow up with Cardiac Surgeon, Dr. Zak Graham, with a chest x-ray, EKG, and Echo. 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 MAIN OR PRO CABG, ARTERY-VEIN, TWO N/A 02/17/2024 @CABG, TWO VENOUS GRAFTS & ARTERIAL GRAFT (WRVU 7.93) performed by Zak Graham MD at [facility] MAIN OR PRO ENDOSCOPY W/VIDEO-ASST VEIN HARVEST, CABG Left 02/17/2024 ENDOSCOPIC HARVEST VEIN(S) FOR CABG (WRVU 0.31) performed by Zak Graham MD at [facility] MAIN OR PRO REPLACEMENT PROSTHETIC AORTIC VALVE OPEN W CARDIOPULMONARY BYPASS HOMOGRF/STENT N/A 02/17/2024 @REPLACE AORTIC VALVE, OPEN, W\CPB, W\PROSTHETIC VALVE (WRVU 41.32) performed by Zak Graham MD at [facility] MAIN OR Prior To Admission Medications Medications [...] insufficiency. He has glaucoma. He used to [employer] until about 15 years ago. He has undergone prior herniorrhaphy. 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 Major Procedures/Operations: 02/17/24 s/p avr/cabgx3 CABG x 3 JOSE->LAD SVG->dRCA SVG->OM1 EVH from LLE AVR with a 23 mm Inspiris Bioprosthesis Hospital Course: Viraj Garcia was admitted to [facility] on 02/17/2024 via the Same [...] Zak Graham and/or the Cardiac Surgery Physician Counter Help Team may be reached at . Antibiotic [...] Please refer to the card with the [place] [employer] Heart [employer] Guidelines for more information. You [...] Dr. Zak Graham. You may use a [place] Track or treadmill but avoid any pulling [...] friends, go to a movie, go to voodoo, etc. Heavy activities: No hunting, skiing, jogging, [...] should resume a low fat, low cholesterol, [place] [employer] Heart [employer] Diet. Driving: No driving until [...] while being managed by your PCP and/or University Relations Director. For future medication refills, please refer to your PCP and/or University Relations Director after your discharge from our service. Thank you REMOVE CHEST TUBE SUTURES ON OR AFTER 03/02/24 Home oxygen therapy: N/A Follow up appointments: You should follow up with your PCP, Aparna Jordan APRN, in 1-2 weeks. Our office will schedule an appointment with your University Relations Director, Neftali Ernandez MD , in 2 weeks. You have an appointment with your Cardiac Surgeon, Dr. Zak Graham, 4 weeks with a chest x-ray, EKG, and Echo before your appointment. Cardiac Rehabilitation: Viraj Garcia was seen regarding participation in the outpatient Phase 2Cardiac Rehabilitation at [facility]. The patient agrees to a referral to this program. The referral will be sent at discharge and the patient should be contacted by the Program within 1- 2 weeks from discharge. Future Appointments and Orders Future Orders Complete By Expires Echocardiogram Transthoracic [22323 CPT(R)] 03/26/2024 09/25/2024 Process Instructions: Scheduling Instructions: Questions: Where will study be performed?: [facility] Clinics Does the patient have Congenital Heart Disease?: Does patient require sedation?: Sedation rationale: XR Chest PA & Lateral (Generic) [81337 05549 Custom] 03/26/2024 09/25/2024 Process Instructions: Scheduling Instructions: Questions: Portable exam?: Reason for exam and clinical history: s/p avr/cabg Clinical information / jerome questions for radiologist: Stat read required?: Date of injury if applicable: Requested Time: Where will study be performed?: [facility] Radiology Referral to Cardiac Rehab [FKS600 Custom] As directed Process Instructions: If no progress note charted, please enter Clinical details in comments. Scheduling Instructions: Questions: My question or request is: s/p AVR/CABG. Cardiac rehab at [facility]. Referral to Home Health [REF34 Custom] As directed Process Instructions: If no progress note charted, please enter Clinical details in comments. Scheduling Instructions: Comments: Please evaluate Viraj Garcia for admission to Home Health. [address] Phone Number: Date of : 1960 Inpatient DOCUMENTATION FOR VNA SERVICES (INCLUDING THOSE PATIENTS WITH MEDICARE COVERAGE REQUIRING HOME VNA SERVICES AND/OR HOSPICE SERVICES) PATIENT'S LOCATION: Viraj Garcia [address] [employer] [facility] [phone] Utility Worker Production's Name: self/family In discussion with the attending physician, it is certified that this patient is under their care and that they, or a Nurse Practitioner, or Physician Counter Help who is working directly with them, hada [...] for services as follows: HOME HEALTH AGENCY: [facility] [address] [place] [address] RN orders: Cardiopulmonary assessment, incisional assessment, assess [...] issues please call the Cardiology Office at [phone] FOR MEDICARE ONLY: (please delete this section [...] APRN [address] / [place] [address] . All VNA agencies which cover the area of patient's residence have been reviewed, either verbally or in writing, and patient/family have chosen the home health care agency noted. Questions: Disciplines Requested: Nursing Physical Therapy Arrangements for VNA/home care: As above. Signed: NEFTALI MENON PA-C [facility] Section of Cardiac Surgery [facility] [address] FAX [phone] Date: 02/24/2024 CC: Aparna Jordan, MAURI Jordan, Aparna Sherman APRN [address] [place] [address] documented in this encounter Discharge Instructions * [...] Zak Graham and/or the Cardiac Surgery Physician Counter Help Team may be reached at . Antibiotic [...] Please refer to the card with the [place] [employer] Heart [employer] Guidelines for more information. You [...] Dr. Zak Graham. You may use a [place] Track or treadmill but avoid any pulling [...] friends, go to a movie, go to voodoo, etc. Heavy activities: No hunting, skiing, jogging, [...] should resume a low fat, low cholesterol, [place] [employer] Heart [employer] Diet. Driving: No driving until [...] while being managed by your PCP and/or University Relations Director. For future medication refills, please refer to your PCP and/or University Relations Director after your discharge from our service. Thank you REMOVE CHEST TUBE SUTURES ON OR AFTER 03/02/24 Home oxygen therapy: N/A Follow up appointments: You should follow up with your PCP, Aparna Jordan APRN, in 1-2 weeks. Our office will schedule an appointment with your University Relations Director, Neftali Ernandez MD , in 2 weeks. You have an appointment with your Cardiac Surgeon, Dr. Zak Graham, 4 weeks with a chest x-ray, EKG, and Echo before your appointment. Cardiac Rehabilitation: Viraj Garcia was seen regarding participation in the outpatient Phase 2Cardiac Rehabilitation at [facility]. The patient agrees to a referral to [...] 0600 and on the weekends please page [phone]. * Eric Barahona PA - 02/23/2024 9:27 [...] 0600 and on the weekends please page [phone]. * Tiffanie Owens - 02/22/2024 2:48 PM [...] Pt reports his dtr is coming from [place] to stay upon d/c for 10 days. Pt was indep [employer]. He drives. He works Precautions/Special Considerations: STERNAL [...] LRAD and supervision Time IN / OUT: 7062-4856 Total Time: 30 minutes; TEFx2 Tiffanie Owens Pager: [phone] Physical Therapy Inpatient Rehabilitation Department * Romeo Carpio MD - 02/22/2024 6:31 AM EDT Cardiac Surgery Progress Note Viraj aGrcia is a 63 y.o. male with and [...] 0600 and on the weekends please page [phone]. * Kelley Hinson PTA - 02/21/2024 10:15 [...] Pt reports his dtr is coming from [place] to stay upon d/c for 10 days. Pt was indep [employer]. He drives. He works Precautions/Special Considerations: STERNAL [...] LRAD and supervision Time IN / OUT: 3414-9551 Total Time: 25 minutes; TEF 2 Kelley Hinson PTA Pager: [phone] Physical Therapy Inpatient Rehabilitation Department * Louisa [...] 0600 and on the weekends please page [phone]. * Kelley Hinson PTA - 02/20/2024 3:32 [...] at that time Kelley Hinson PTA Pager: [phone] Physical Therapy Inpatient Rehab Department * Louisa [...] 0600 and on the weekends please page [phone]. * Chrystal Benavides, PT - 02/19/2024 11:22 [...] Pt reports his dtr is coming from [place] to stay upon d/c for 10 days. Pt was indep [employer]. He drives. He works. Precautions/Special Considerations: STERNAL [...] outlined inthis evaluation. CHRYSTAL BENAVIDES, PT Pager: [phone] Physical Therapy Inpatient Rehabilitation Department Time IN / OUT: 9291-3798 Total Time: 38 (eval) minutes; * Antonio [...] 0600 and on the weekends please page [phone]. * Minnie Begum PA - 02/18/2024 8:25 [...] 0600 and on the weekends please page [phone]. * Kim Ha RN CCU - 02/17/2024 2:25 PM EDT Respiratory Care [...] plan since last visit. Zak Graham MD [phone] Source Note - Zak Graham MD - [...] given written informed consent. Zak Graham MD [phone] * Zak Graham MD - 02/17/2024 7:00 [...] given written informed consent. Zak Graham MD [phone] documented in this encounter Miscellaneous Notes * [...] information for follow-up Home Health & Hospice, [address] [place] [address] Cardiac Rehab, [address] [place] [address] Transportation: family or friend will provide Functional status prior to admission: Independent Home Environment: Others in the home: alone. Current Living Arrangements: home/apartment/condo. Accessibility Concerns:a few steps to enter 1 floor home. Current Functional Ability: Assistive Person and Equipment DME used at home: none DME Needed at Discharge: N/A Patient is insured through: Primary Insurance: [facility] Payor: [facility] / Plan: [facility] PPO / Product Type: *No Product type* [...] managed with scheduled Tylenol. Worked with [employer]. Ambulated in the roque multiple times during [...] anticipated Patient is insured through: Primary Insurance: [facility] Payor: [facility] / Plan: [facility] PPO / Product Type: *No Product type* / Secondary Insurance: N/A Last Physical Therapy Recommendation: home with home health (Str coming to stay for a week or two upon d/c) with to be determined (owns rolling walker, shower seat) Plan for discharge is: Home w/ Services Outpatient Agency/Support Group Needs: Homecare agency Home Health Services: Physical Therapy, Registered Nurse Agency Referrals: [facility] [address] [place] [address] Transportation: family or friend will provide Barriers to discharge: Discharge planning Plan going forward: Service Care Management will continue to follow and assist with discharge planning and coordination of care as indicated. Anticipated Date of Discharge: 02/22/2024 Rhett Bell RN RN/CM - Cellphone: [phone] Pager: [phone] Covering Service RN/CM * Plan of Care [...] Yang RN - 02/19/2024 10:44 AM EDT [facility] CARDIAC REHABILITATION Viraj Garcia was seen today regarding participation in the outpatient Phase 2 Cardiac Rehabilitation at [facility]. 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 (Only good for 180 days) Any patient receiving care in [place] must abide by [place] law. The hierarchy for surrogate decision making [...] (i) The agent with financial power of hearing therapy director or a conservator appointed in accordance with [...] steady place to sleep or slept in [facility] (including now)?: No In the past 12 months has the electric, gas, oil, or water [employer] threatened to shut off services in your [...] Home Address confirmed as: [address] [facility] [address] Physical address: [address] [facility], [address] Social & Family Supports: All names listed [...] Information: none noted Health/Prescription Coverage: Primary Insurance: [facility] Payor: [facility] / Plan: [facility] PPO / Product Type: *No Product type* / Secondary Insurance: N/A ; Prescription Coverage: Yes Preferred Pharmacy: [id number] [address] Status: Patient is a : No Primary Care Provider confirmed: Aparna Jordan, MAURI [phone] Patient/Caregiver Goals of Treatment: dc to home Potential Needs for Transition of Care: home health care Agency Referrals: I have met with the patient to: discuss discharge planning needs. provide the [facility], Office of Care Management letter from the Audio Specialist pertaining to rehab referrals. provide a letter describing our affiliations within the [facility] and educate about their right to choose where referrals are sent. provide a list of Home Health Agencies / Durable Medical Equipment vendors which serve their preferred geographic area. provided patient with [facility] Star Quality Rating handout. They have requested referrals to: [facility] [address] [place] [address] Note routed to a Elementary Tutor who will communicate referrals to facilities and [...] daughter, Cielo, will be coming in from [place] on 02/18, to stay with him , [...] Reina Greene RN CM, BSN, CMGT-BC Ext [phone] * Plan of Care - Binta Trinidad [...] Operative Note Patient Name: Viraj Garcia : [id number] MR#: [id number] Case Date: 02/17/2024 Surgeon: Surgeon(s) and Role: * Zak Graham MD - Primary * Neftali Menon PA - Physician Counter Help Preoperative diagnosis: CAD Postoperative diagnosis: CAD, intraoperative [...] mL Drains: Mediastinal and Left pleural Disposition: [facility] Condition: doing well without problems Attestation: Case Date: 02/17/2024 I performed this procedure without the involvement of a resident. ZAK GRAHAM MD 02/17/2024 * Op Note - Zak Graham MD - 02/17/2024 8:20 AM EDT [facility] Operative Note Patient Name: Viraj Garcia : [id number] MR#: [id number] Case Date: 02/17/2024 Surgeon: Surgeons and Role: * Zak Graham MD - Primary * Neftali Menon PA - Physician Counter Help Preoperative diagnosis: CAD Postoperative diagnosis: CAD, intraoperative [...] mL Drains: Mediastinal and Left pleural Disposition: [facility] Procedure Description: The patient was brought [...] 11:00 AM EDT Office Visit Cardiology at [address] [id number] Neftali Ernandez MD [facility] [place] [address] Scheduled Orders Name Type Priority Associated Diagnoses [...] Aortic Valve Open W Cardiopulmonary Bypass Homogrf/Stent (50001) Yes 02/17/2024 7:28 AM EDT CAD Cabg, Artery-Vein, Two (54594) Yes 02/17/2024 7:28 AM EDT CAD Cabg, Arterial, Single (15754) Yes 02/17/2024 7:28 AM EDT CAD Endoscopy W/Video-Asst Vein [place], Cabg (20517) Yes 02/17/2024 7:28 AM EDT CAD POCT GLUCOSE Routine 02/17/2024 6:38 AM EDT TRANSESOPHAGEAL ECHOCARDIOGRAM IN THE OR Routine 02/17/2024 6:33 AM EDT Aortic valve stenosis, etiology of cardiac valve disease unspecified LAB SCAN 02/17/2024 12:00 AM EDT IMPLANTABLE DEVICES SCAN 02/17/2024 12:00 AM EDT documented in this encounter Results * Potassium (02/24/2024 4:42 AM EDT) Potassium 4.0 3.5 - 5.0 mmol/L [facility] Comment: Please note: ??Patients with WBC >100,000 may have falsely elevated Potassium levels. ??For accurate Potassium quantification in these patients send serum separator tube (gold top) for subsequent determinations. ??Contact the Clinical Chemistry Laboratory if there are any questions. Blood 02/24/2024 4:42 AM EDT 02/24/2024 4:59 AM EDT Narrative Resulting Agency Comment Spec In Lab Zak Graham MD CHEMISTRY ORDERABLE S [facility] [place] [address] * (ABNORMAL) Basic Metabolic Panel (non-fasting) (02/23/2024 4:24 AM EDT) Glucose Lvl 117 65 - 199 mg/dL [facility] Comment:Diabetes: >=200 mg/d L plus symptoms BUN 18 10 - 20 mg/dL [facility] Creatinine 0.71(L) 0.80 - 1.50 mg/dL [facility] Sodium 138 135 - 145 mmol/L [facility] Potassium 4.4 3.5 - 5.0 mmol/L [facility] Comment: Please note: ??Patients with WBC >100,000 may have falsely elevated Potassium levels. ??For accurate Potassium quantification in these patients send serum separator tube (gold top) for subsequent determinations. ??Contact the Clinical Chemistry Laboratory if there are any questions. Chloride 101 98 - 107 mmol/L [facility] CO2 26 22 - 31 mmol/L [facility] Anion Gap 11 5 - 15 mmol/L [facility] Calcium 8.8 8.5 - 10.5 mg/dL [facility] Estimated GFR 102 >=60 mL/min/1. 73 m?? [facility] Comment: This patient's estimated GFR [...] In Lab Romeo Carpio MD CHEMISTRY ORDERABLES [facility] [place] [address] * Potassium (02/22/2024 4:30 AM EDT) Potassium 3.5 3.5 - 5.0 mmol/L [facility] Comment: Please note: ??Patients with WBC >100,000 may have falsely elevated Potassium levels. ??For accurate Potassium quantification in these patients send serum separator tube (gold top) for subsequent determinations. ??Contact the Clinical Chemistry Laboratory if there are any questions. Blood 02/22/2024 4:30 AM EDT 02/22/2024 5:12 AM EDT Narrative Resulting Agency Comment Spec In Lab Zak Graham MD CHEMISTRY ORDERABLE S [facility] [place] [address] * (ABNORMAL) Basic Metabolic Panel (non-fasting) (02/21/2024 9:45 AM EDT) Glucose Lvl 123 65 - 199 mg/dL [facility] Comment:Diabetes: >=200 mg/d L plus symptoms BUN 22(H) 10 - 20 mg/dL [facility] Creatinine 0.78(L) 0.80 - 1.50 mg/dL [facility] Sodium 140 135 - 145 mmol/L [facility] Potassium 3.9 3.5 - 5.0 mmol/L [facility] Comment: Please note: ??Patients with WBC >100,000 may have falsely elevated Potassium levels. ??For accurate Potassium quantification in these patients send serum separator tube (gold top) for subsequent determinations. ??Contact the Clinical Chemistry Laboratory if there are any questions. Chloride 100 98 - 107 mmol/L [facility] CO2 Not Perf 22 - 31 [facility] Comment:Add-on request. Samp le too old to perform test. Anion Gap Unable to Calculate 5 - 15 mmol/L [facility] Calcium 8.6 8.5 - 10.5 mg/dL [facility] Estimated GFR 100 >=60 mL/min/1 .73 m?? [facility] Comment: This patient's estimated GFR [...] Carpio MD CHEMISTRY ORDERABLES Performing Organization Address City/[facility]/ZIP Co de Phone Number [facility] [place] [address] * Lactate, whole blood, send to lab ([facility]) (02/21/2024 9:45 AM EDT) Pathologist [facility] Lactate WB 2.0 0.5 - 2.2 mmol/L [facility] Blood 02/21/2024 9:45 AM EDT 02/21/2024 9:52 AM EDT Narrative Resulting Agency Comment Spec In Lab Zak Graham MD CHEMISTRY ORDERABLE S Performing Organization Address City/[facility]/ZIP Co de Phone Number [facility] [place] [address] * (ABNORMAL) Hepatic Function Panel (02/21/2024 9:45 AM EDT) Total Protein 5.7(L) 6.1 - 8.0 g/dL [facility] Albumin 3.3 3.2 - 5.2 g/dL [facility] AST 13 0 - 39 unit/L [facility] ALT 16 0 - 55 unit/L [facility] Alk Phos 63 40 - 130 unit/L [facility] Total Bilirubin 0.6 0.2 - 1.3 mg/dL [facility] Bili, Direct 0.2 0.0 - 0.3 mg/dL [facility] Blood 02/21/2024 9:45 AM EDT 02/21/2024 9:52 AM EDT Narrative Resulting Agency Comment Spec In Lab Zak Graham MD CHEMISTRY ORDERABLE S Performing Organization Address City/[facility]/ZIP Co de Phone Number [facility] [place] [address] * Lipase (02/21/2024 9:45 AM EDT) Lipase 56 0 - 60 unit/L [facility] Blood 02/21/2024 9:45 AM EDT 02/21/2024 9:52 AM EDT Narrative Resulting Agency Comment Spec In Lab Zak Graham MD CHEMISTRY ORDERABLE S Performing Organization Address [facility] [[email or web address]] Co de Phone Number [facility] [place] [id number] * Amylase (02/21/2024 9:45 AM EDT) Amylase 69 28 - 100 unit/L [facility] Blood 02/21/2024 9:45 AM EDT 02/21/2024 9:52 AM EDT Narrative Resulting Agency Comment Spec In Lab Zak Graham MD CHEMISTRY ORDERABLE S Performing Organization Address [facility] [[email or web address] Co de Phone Number [facility] [place] [address] * Potassium (02/21/2024 3:08 AM EDT) Potassium 3.8 3.5 - 5.0 mmol/L [facility] Comment: Please note: ??Patients with WBC >100,000 may have falsely elevated Potassium levels. ??For accurate Potassium quantification in these patients send serum separator tube (gold top) for subsequent determinations. ??Contact the Clinical Chemistry Laboratory if there are any questions. Blood 02/21/2024 3:08 AM EDT 02/21/2024 3:28 AM EDT Narrative Resulting Agency Comment Spec In Lab Zak Graham MD CHEMISTRY ORDERABLE S [facility] [place] [address] * XR Chest PA & Lateral (Generic) (02/20/2024 10:19 AM EDT) WORKSTATION ID [id number] RAD Anatomical Region Laterality Modality Chest N/A Digital Radiogra phy Impressions 02/20/2024 1:11 PM EDT Small pleural effusions. No pneumothorax Thank you for letting us participate in the care of this patient. ??If you are a health care provider and have any questions regarding this report, please contact the number below. ??For patients who have questions please contact the health lawn care specialist that requested your imaging first. ? Electronically signed by: Rogerio Cruz MD, [facility] ??([phone]), at 02/20/2024 1:11 PM Narrative 02/20/2024 1:11 PM EDT EXAMINATION: XR CHEST PA AND LATERAL (GENERIC) CLINICAL HISTORY: s/p AVR/CABGx3 TECHNIQUE: PA and lateral views of the chest COMPARISON: 02/17/2024 FINDINGS: Support devices: Interval removal of Clayton-Kaila catheter, endotracheal tube and mediastinal chest tubes The cardiac silhouette is stable status post median sternotomy, CABG and aortic valve replacement. There are small pleural effusions. No pneumothorax. Procedure Note Rogerio Cruz MD - 02/20/2024 EXAMINATION: XR CHEST PA AND LATERAL (GENERIC) CLINICAL HISTORY: s/p AVR/CABGx3 TECHNIQUE: PA and lateral views of the chest COMPARISON: 02/17/2024 FINDINGS: Support devices: Interval removal of Clayton-Kaila catheter, endotracheal tubeand mediastinal chest tubes The [...] patients who have questions please contactthe health lawn care specialist that requested your imaging first. Zak Graham MD IMG DX ORDERABLES * Scan, Peripheral Blood (02/20/2024 4:23 AM EDT) Pathologist [facility] Plat Estimate Decreased [facility] RBC Morphology Normal [facility] Blood 02/20/2024 4:23 AM EDT 02/20/2024 4:42 AM EDT Narrative Resulting Agency Comment Spec In Lab Minnie FRENCH HEMATOLOGY CECILIO ALEMAN [facility] [place] [address] * (ABNORMAL) Differential, Automated (02/20/2024 4:23 AM EDT) [facility] Neutrophils % 81.7 % [facility] Neutr Abs (ANC) 10.37(H) 1.70 - 6.10 x10(3)/mc L [facility] Lymphocytes % 7.4 % [facility] Lymphocytes Abs 0.9 0.9 - 3.2 x10(3)/mc L [facility] Monocytes % 9.7 % [facility] Monocyte Abs 1.2(H) 0.3 - 0.9 x10(3)/mc L [facility] Eosinophils % 0.1 % [facility] Eosinophils Abs 0.0 0.0 - 0.4 x10(3)/[facility]ORAT[facility] Basophils % 0.2 % [facility] Basophils Abs 0.0 0.0 - 0.1 x10(3)/[facility]ORATORY Immature Gran % 0.90 % [facility] Comment: Immature granulocytes(IG's)percentage and absolute count will include metamyelocytes, myelocytes, and promyelocytes. Blood smears from CBCs yielding IG's will be scanned manually for concordance. If this scan disagrees with the automated IG or if promyelocytes are noted, a manual differential will be performed. [place] Gran Abs 0.12(H) 0.00 - 0.04 x10(3)/[facility] Blood 02/20/2024 4:23 AM EDT 02/20/2024 4:42 AM EDT Narrative Resulting Agency Comment Spec In Lab Minnie FRENCH HEMATOLOGY CECILIO ALEMAN [facility] [place] [address] * (ABNORMAL) Hemogram (02/20/2024 4:23 AM EDT) WBC 12.7(H) 4.0 - 9.5 x10(3)/[facility]ORATORY RBC 4.26(L) 4.58 - 5.54 x10(6)/[facility] Hemoglobin 12.3(L) 13.7 - 16.5 g/dL [facility] Hematocrit 37.1(L) 40.5 - 48.5 % [facility] MCV 87.1 82.9 - 93.1 fL [facility] MCH 28.9 27.5 - 32.1 pg [facility] MCHC 33.2 32.0 - 35.7 g/dL [facility] Platelets 88(L) 145 - 357 x10(3)/[facility] LABORATORY RDWSD 43.5 36.0 - 45.0 [facility]ATORY RDWCV 13.7 11.4 - 13.8 % [facility] MPV 10.2 7.6 - 12.9 [facility] nRBC % Auto 0.0 % [facility] nRBC Abs Auto 0.000 0.000 - 0.000 x10(3)/[facility] Blood 02/20/2024 4:23 AM EDT 02/20/2024 4:42 AM EDT Narrative Resulting Agency Comment Spec In Lab Minnie FRENCH HEMATOLOGY CECILIO ALEMAN [facility] [place] [address] * (ABNORMAL) Basic Metabolic Panel (non-fasting) (02/20/2024 4:23 AM EDT) Glucose Lvl 113 65 - 199 mg/dL [facility] Comment:Diabetes: >=200 mg/d L plus symptoms BUN 20 10 - 20 mg/dL [facility] Comment:result rechecked-KS Creatinine 0.71(L) 0.80 - 1.50 mg/dL [facility] Sodium 135 135 - 145 mmol/L [facility] Potassium 3.9 3.5 - 5.0 mmol/L [facility] Comment: Please note: ??Patients with WBC >100,000 may have falsely elevated Potassium levels. ??For accurate Potassium quantification in these patients send serum separator tube (gold top) for subsequent determinations. ??Contact the Clinical Chemistry Laboratory if there are any questions. Chloride 102 98 - 107 mmol/L [facility] CO2 25 22 - 31 mmol/L [facility] Anion Gap 8 5 - 15 mmol/L [facility] Calcium 8.7 8.5 - 10.5 mg/dL [facility] Comment:result rechecked-[place] Estimated GFR 102 >=60 mL/min/1. 73 m?? [facility] Comment: This patient's estimated GFR [...] MD CHEMISTRY ORDERABLE S Performing Organization Address [facility] [[email or web address] Co de Phone Number [facility] [place] [address] * Potassium (02/19/2024 3:57 AM EDT) Potassium 4.3 3.5 - 5.0 mmol/L [facility] Comment: Please note: ??Patients with [...] MD CHEMISTRY ORDERABLE S Performing Organization Address [facility] [[email or web address]] Co de Phone Number [facility] [place] [address] * POCT Glucose (02/18/2024 8:24 AM EDT) POC Glucose 157 65 - 199 mg/dL [facility] Comment: Supplemental ranges: <140 mg/dL before meals <180 mg/dL all other times of the day Blood 02/18/2024 8:24 AM EDT 02/18/2024 8:24 AM EDT Zka Graham MD POINT OF CARE TEST ORDERABLES Performing Organization Address City/[facility]/[place] [address] * Scan, Peripheral Blood (02/18/2024 1:40 AM EDT) Plat Estimate Decreased [facility] RBC Morphology Normal [facility] Blood 02/18/2024 1:40 AM EDT 02/18/2024 1:56 AM EDT Narrative Resulting Agency Comment Spec In Lab Nefatli FRENCH HEMATOLOGY ORDER OLE Performing Organization Address City/[facility]/ZIP Co de Phone Number [facility] [place] [address] * (ABNORMAL) Differential, Automated (02/18/2024 1:40 AM EDT) [facility] Signature Neutrophils % 87.1 % [facility] Neutr Abs (ANC) 15.03(H) 1.70 - 6.10 x10(3)/mc L [facility] Lymphocytes % 3.0 % [facility] Lymphocytes Abs 0.5(L) 0.9 - 3.2 x10(3)/mc L [facility] Monocytes % 9.1 % [facility] Monocyte Abs 1.6(H) 0.3 - 0.9 x10(3)/mc L [facility] Eosinophils % 0.0 % [facility] Eosinophils Abs 0.0 0.0 - 0.4 x10(3)/mc L [facility] Basophils % 0.2 % [facility] Basophils Abs 0.0 0.0 - 0.1 x10(3)/mc L [facility] Immature Gran % 0.60 % [facility] Comment: Immature granulocytes(IG's)percentage and absolute count will include metamyelocytes, myelocytes, and promyelocytes. Blood smears from CBCs yielding IG's will be scanned manually for concordance. If this scan disagrees with the automated IG or if promyelocytes are noted, a manual differential will be performed. [place] Gran Abs 0.10(H) 0.00 - 0.04 x10(3)/ L [facility] Blood 02/18/2024 1:40 AM EDT 02/18/2024 1:56 AM EDT Narrative Resulting Agency Comment Spec In Lab Neftali FRENCH HEMATOLOGY ORDER OLE [facility] [place] [address] * (ABNORMAL) Hemogram (02/18/2024 1:40 AM EDT) WBC 17.2(H) 4.0 - 9.5 x10(3)/[facility] LABORATORY RBC 4.71 4.58 - 5.54 x10(6)/[facility] Hemoglobin 13.7 13.7 - 16.5 g/dL [facility] Hematocrit 39.2(L) 40.5 - 48.5 % [facility] MCV 83.2 82.9 - 93.1 fL [facility] MCH 29.1 27.5 - 32.1 pg [facility] MCHC 34.9 32.0 - 35.7 g/dL [facility] Platelets 147 145 - 357 x10(3)/[facility] LABORATORY RDWSD 39.9 36.0 - 45.0 [facility] RDWCV 13.2 11.4 - 13.8 % [facility] MPV 9.9 7.6 - 12.9 [facility] nRBC % Auto 0.0 % [facility] nRBC Abs Auto 0.000 0.000 - 0.000 x10(3)/mcL [facility] Blood 02/18/2024 1:40 AM EDT 02/18/2024 1:56 AM EDT Narrative Resulting Agency Comment Spec In Lab Neftali FRENCH HEMATOLOGY ORDER OLE [facility] [place] [address] * (ABNORMAL) Basic Metabolic Panel (non-fasting) (02/18/2024 1:40 AM EDT) Glucose Lvl 176 65 - 199 mg/dL [facility] Comment:Diabetes: >=200 mg/d L plus symptoms BUN 10 10 - 20 mg/dL [facility] Creatinine 0.65(L) 0.80 - 1.50 mg/dL [facility] Sodium 135 135 - 145 mmol/L [facility] Potassium 4.2 3.5 - 5.0 mmol/L [facility] Comment: Please note: ??Patients with WBC >100,000 may have falsely elevated Potassium levels. ??For accurate Potassium quantification in these patients send serum separator tube (gold top) for subsequent determinations. ??Contact the Clinical Chemistry Laboratory if there are any questions. Chloride 106 98 - 107 mmol/L [facility] CO2 20(L) 22 - 31 mmol/L [facility] Anion Gap 9 5 - 15 mmol/L [facility] Calcium 7.6(L) 8.5 - 10.5 mg/dL [facility] Estimated GFR 105 >=60 mL/min/1. 73 m?? [facility] Comment: This patient's estimated GFR [...] Lab Zak Graham MD CHEMISTRY ORDERABLE S [facility] [place] [address] * (ABNORMAL) Troponin (02/18/2024 1:40 AM EDT) [...] troponin value can be found in the [facility] Test Catalog Troponin - [facility] Test Catalog Reference: Fourth Hamilton Definition of Myocardial Infarction. Journal of the [place] [employer] 2018;72:1962-6807 Blood 02/18/2024 1:40 AM EDT 02/18/2024 1:56 AM EDT Narrative Resulting Agency Comment Spec In Lab Zak Graham MD CHEMISTRY ORDERABLE S Performing Organization Address [facility] [[email or web address]] Co de Phone Number [facility] [place] [address] * POCT Glucose (02/17/2024 8:13 PM EDT) POC Glucose 142 65 - 199 mg/dL [facility] Comment: Supplemental ranges: <140 mg/dL before meals <180 mg/dL all other times of the day Blood 02/17/2024 8:13 PM EDT 02/17/2024 8:13 PM EDT Zak Graham MD POINT OF CARE TEST ORDERABLES Performing Organization Address [facility] [[email or web address] Co de Phone Number [facility] [place] [address] * POCT Glucose (02/17/2024 5:42 PM EDT) POC Glucose 160 65 - 199 mg/dL [facility] Comment: Supplemental ranges: <140 mg/dL before meals <180 mg/dL all other times of the day Blood 02/17/2024 5:42 PM EDT 02/17/2024 5:42 PM EDT Zak Graham MD POINT OF CARE TEST ORDERABLES Performing Organization Address [facility] [[email or web address] Co de Phone Number [facility] [place] [address] * Hemoglobin (02/17/2024 5:42 PM EDT) Hemoglobin 13.7 13.7 - 16.5 g/dL [facility] Blood 02/17/2024 5:42 PM EDT 02/17/2024 6:10 PM EDT Narrative Resulting Agency Comment Spec In Lab Zak Graham MD HEMATOLOGY ORDERABL ES Performing Organization Address City/[facility]/ZIP Co de Phone Number [facility] [place] [address] * Potassium (02/17/2024 5:42 PM EDT) Potassium 4.3 3.5 - 5.0 mmol/L [facility] Comment: Please note: ??Patients with [...] MD CHEMISTRY ORDERABLE S Performing Organization Address [facility] [[email or web address]] Co de Phone Number [facility] [place] [address] * (ABNORMAL) BLOOD GAS 2 ARTERIAL (02/17/2024 4:18 PM EDT) pH Art 7.34(L) 7.35 - 7.45 [facility] pCO2 Art 40 35 - 45 mmHg [facility] pO2 Art 78(L) 85 - 104 mmHg [facility] HCO3 Art 20.8 20.0 - 26.0 mmol/L [facility] BE Art -5.1(L) -3.0 - 3.0 mmol/L [facility] Hgb Blood Gas 14.6 13.7 - 16.5 g/dL [facility] O2HB Art 93.0(L) 94.0 - 97.0 % [facility] COHB Art 0.3 % [facility] Comment: Nonsmokers: 0.5-1.5% COHB Smokers: Variable, but usually less than 10% Toxic: 20-30% COHB Lethal: Greater than 60% COHB METHB Art 0.8 <=1.5 % [facility] Na Whole Blood 136 135 - 145 mmol/L [facility] K Whole Blood 4.1 3.5 - 5.0 mmol/L [facility] Comment: Please note: Patients with WBC >100,000 may have falsely elevated Potassium levels. Contact the Clinical Chemistry Laboratory if there are any questions. ICa Whole Blood 1.10(L) 1.15 - 1.33 mmol/L [facility] Comment: Note: ??Total bilirubin higher than 20 mg/dL may lead to falsely low ionized calcium. CL Whole Blood 105 98 - 107 mmol/L [facility] Gluc Whole Bld 159 65 - 199 mg/dL [facility] Comment:Diabetes: >=200 mg/d L plus symptoms. Lactate WB 1.2 0.5 - 2.2 mmol/L [facility] FIO2 Art 40 % [facility] PF Ratio Art 195 [facility] Blood 02/17/2024 4:18 PM EDT 02/17/2024 4:18 PM EDT Zak Graham MD CHEMISTRY ORDERABLE S Performing Organization Address City/State/[facility] [[email or web address]] Co de Phone Number [facility] [place] [address] * XR Chest One View (02/17/2024 1:44 PM EDT) [email or web address] WORKSTATION ID [id number] RAD Anatomical Region Laterality Modality Chest N/A Digital Radiogra phy Impressions 02/17/2024 2:12 PM EDT 1. ??No definite pleural fluid collection or pneumothorax. 2. ??Right IJ Clayton-Kaila catheter tip terminates in a descending branch of the right pulmonary artery. Suggest catheter retraction. 3. ??Additional support lines and tubes as above. Thank you for letting us participate in the care of this patient. ??If you are a health care provider and have any questions regarding this report, please contact the number below. ??For patients who have questions please contact the health lawn care specialist that requested your imaging first. ? Electronically signed by: Denzel Hankins MD, [facility] ??([phone]), at 02/17/2024 2:12 PM Narrative 02/17/2024 2:12 PM EDT EXAMINATION: XR CHEST ONE VIEW CLINICAL HISTORY: s/p avr/cabg eval effusions TECHNIQUE: 1 view of the chest COMPARISON: Chest x-ray 01/09/2024, chest CT 02/03/2024 FINDINGS: ET tube tip terminates 5.2 cm above the carlos. Right IJ Clayton-Kaila catheter tip terminates in a descending branch [...] 5.2 cm above the carlos. Right IJ Clayton-Ganzcatheter tip terminates in a descending branch of [...] fluid collection or pneumothorax. 2. Right IJ Clayton-Kaila catheter tip terminates in a descending branch ofthe right pulmonary artery. Suggest catheter retraction. 3. Additional support lines and tubes as above. Thank you for letting us participate in the care of this patient. If youare a health care provider and have any questions regarding this report,please contact the number below. For patients who have questions please contactthe health lawn care specialist that requested your imaging first. Electronically signed by: Denzel Hankins MD, [facility]([phone]), at 02/17/2024 2:12 PM Zak Graham MD IMG DX ORDERABLES * (ABNORMAL) BLOOD GAS 2 ARTERIAL (02/17/2024 1:31 PM EDT) pH Art 7.35 7.35 - 7.45 [facility] pCO2 Art 39 35 - 45 mmHg [facility] pO2 Art 320(H) 85 - 104 mmHg [facility] HCO3 Art 21.4 20.0 - 26.0 mmol/L [facility] BE Art -4.2(L) -3.0 - 3.0 mmol/L [facility] Hgb Blood Gas 14.1 13.7 - 16.5 g/dL [facility] O2HB Art 97.9(H) 94.0 - 97.0 % [facility] COHB Art 0.3 % [facility] Comment: Nonsmokers: 0.5-1.5% COHB Smokers: Variable, but usually less than 10% Toxic: 20-30% COHB Lethal: Greater than 60% COHB METHB Art 0.7 <=1.5 % [facility] Na Whole Blood 137 135 - 145 mmol/L [facility] K Whole Blood 4.2 3.5 - 5.0 mmol/L [facility] Comment: Please note: Patients with WBC >100,000 may have falsely elevated Potassium levels. Contact the Clinical Chemistry Laboratory if there are any questions. ICa Whole Blood 1.13(L) 1.15 - 1.33 mmol/L [facility] Comment: Note: ??Total bilirubin higher than 20 mg/dL may lead to falsely low ionized calcium. CL Whole Blood 108(H) 98 - 107 mmol/L [facility] Gluc Whole Bld 136 65 - 199 mg/dL [facility] Comment:Diabetes: >=200 mg/d L plus symptoms. Lactate WB 1.1 0.5 - 2.2 mmol/L [facility] FIO2 Art 100 % [facility] PF Ratio Art 320 [facility] Blood 02/17/2024 1:31 PM EDT 02/17/2024 1:31 PM EDT Zak Graham MD CHEMISTRY ORDERABLE S Performing Organization Address City/[facility] [[email or web address] Co de Phone Number [facility] [place] [address] * (ABNORMAL) Coox2 (02/17/2024 1:21 PM EDT) pO2 Coox 44 mmHg [facility] Hgb Blood Gas 13.1(L) 13.7 - 16.5 g/dL [facility] O2HB Coox 76.4 % [facility] COHB Coox 0.3 % [facility] Comment: Nonsmokers: 0.5-1.5% COHB Smokers: Variable, but usually less than 10% Toxic: 20-30% COHB Lethal: Greater than 60% COHB METHB Coox 0.8 <=1.5 % [facility] Source Coox Mixed Venous [facility] Blood 02/17/2024 1:21 PM EDT 02/17/2024 1:21 PM EDT Zak Graham MD CHEMISTRY ORDERABLE S [facility] [place] [address] * (ABNORMAL) BLOOD GAS 2 ARTERIAL (02/17/2024 12:14 PM EDT) pH Art 7.39 7.35 - 7.45 [facility] pCO2 Art 40 35 - 45 mmHg [facility] pO2 Art 338(H) 85 - 104 mmHg [facility] HCO3 Art 23.7 20.0 - 26.0 mmol/L [facility] BE Art -1.3 -3.0 - 3.0 mmol/L [facility] Hgb Blood Gas 11.0(L) 13.7 - 16.5 g/dL [facility] O2HB Art 98.8(H) 94.0 - 97.0 % [facility] COHB Art 0.3 % [facility] Comment: Nonsmokers: 0.5-1.5% COHB Smokers: Variable, but usually less than 10% Toxic: 20-30% COHB Lethal: Greater than 60% COHB METHB Art 0.3 <=1.5 % [facility] Na Whole Blood 135 135 - 145 mmol/L [facility] K Whole Blood 5.1(H) 3.5 - 5.0 mmol/L [facility] Comment: Please note: Patients with WBC >100,000 may have falsely elevated Potassium levels. Contact the Clinical Chemistry Laboratory if there are any questions. ICa Whole Blood 1.13(L) 1.15 - 1.33 mmol/L [facility] Comment: Note: ??Total bilirubin higher than 20 mg/dL may lead to falsely low ionized calcium. CL Whole Blood 106 98 - 107 mmol/L [facility] Gluc Whole Bld 132 65 - 199 mg/dL [facility] Comment:Diabetes: >=200 mg/d L plus symptoms. Lactate WB 1.4 0.5 - 2.2 mmol/L [facility] Blood 02/17/2024 12:1 4 PM EDT 02/17/2024 12:14 PM EDT Zak Graham MD CHEMISTRY ORDERABLE S Performing Organization Address [facility] [[email or web address]] Co de Phone Number [facility] [place] [address] * (ABNORMAL) Fibrinogen (02/17/2024 12:10 PM EDT) Fibrinogen 154(L) 200 - 393 mg/dL [facility] Comment: OR Result [...] ORDERABLE S Performing Organization Address [facility] de Phone Number [facility] [place] [address] * (ABNORMAL) Thrombin time (02/17/2024 12:10 PM EDT) Thrombin Time 18(H) 10 - 17 sec [facility] Comment: OR Result [...] MD HEMATOLOGY ORDERABLE S Performing Organization Address [facility]/ZIP Co de Phone Number [facility] [place] [address] * APTT (02/17/2024 12:10 PM EDT) PTT 33 25 - 37 sec [facility] Comment: OR Result [...] MD HEMATOLOGY ORDERABLE S Performing Organization Address [facility] [[email or web address]] Co de Phone Number [facility] [place] [address] * (ABNORMAL) Prothrombin Time (02/17/2024 12:10 PM EDT) PT 16.7(H) 9.4 - 12.5 sec [facility] Comment: OR Result called by ?? LOMARL OR Results read back by: ? silvia pagan at 2024-02-17 12:41:48 INR 1.5 [facility] Comment: OR Result called by [...] Lab Tara York MD [place] [address] * (ABNORMAL) Hemogram (02/17/2024 12:10 PM EDT) WBC 11.1(H) 4.0 - 9.5 x10(3)/[facility] LABORATORY RBC 3.50(L) 4.58 - 5.54 x10(6)/[facility] LABORATORY Hemoglobin 10.4(L) 13.7 - 16.5 g/dL [facility] Hematocrit 30.2(L) 40.5 - 48.5 % [facility] Comment: This result has been called to SILVIA PAGAN by Eddie López on 02 17 2024 at 1226, and has been read back. MCV 86.3 82.9 - 93.1 [facility] LABORATORY MCH 29.7 27.5 - 32.1 pg [facility] MCHC 34.4 32.0 - 35.7 g/dL [facility] Platelets 118(L) 145 - 357 x10(3)/[facility] LABORATORY RDWSD 40.2 36.0 - 45.0 [facility] LABORATORY RDWCV 12.8 11.4 - 13.8 % [facility] MPV 9.5 7.6 - 12.9 [facility] LABORATORY nRBC % Auto 0.0 % [facility] LABORATORY nRBC Abs Auto 0.000 0.000 - 0.000 x10(3)/[facility] LABORATORY Blood 02/17/2024 12:1 0 PM EDT 02/17/2024 12:19 PM EDT Narrative Resulting Agency Comment Spec In Lab Tara York MD HEMATOLOGY ORDERABLE S [facility] [place] [address] * (ABNORMAL) BLOOD GAS 2 ARTERIAL (02/17/2024 11:43 AM EDT) pH Art 7.38 7.35 - 7.45 [facility] pCO2 Art 40 35 - [address] [facility] pO2 Art 304(H) 85 - 104 mmHg [facility] HCO3 Art 23.2 20.0 - 26.0 mmol/L [facility] BE Art -1.9 -3.0 - 3.0 mmol/L [facility] Hgb Blood Gas 11.1(L) 13.7 - 16.5 g/dL [facility] O2HB Art 98.6(H) 94.0 - 97.0 % [facility] COHB Art 0.3 % [facility] Comment: Nonsmokers: 0.5-1.5% COHB Smokers: Variable, but usually less than 10% Toxic: 20-30% COHB Lethal: Greater than 60% COHB METHB Art 0.3 <=1.5 % [facility] Na Whole Blood 133(L) 135 - 145 mmol/L [facility] K Whole Blood 6.2(Critic al) 3.5 - 5.0 mmol/L [facility] Comment: Noted by instrument assembly supervisor. Please note: Patients with WBC >100,000 may have falsely elevated Potassium levels. Contact the Clinical Chemistry Laboratory if there are any questions. ICa Whole Blood 0.97(L) 1.15 - 1.33 mmol/L [facility] Comment: Note: ??Total bilirubin higher than 20 mg/dL may lead to falsely low ionized calcium. CL Whole Blood 104 98 - 107 mmol/L [facility] Gluc Whole Bld 128 65 - 199 mg/dL [facility] Comment:Diabetes: >=200 mg/d L plus symptoms. Lactate WB 1.1 0.5 - 2.2 mmol/L [facility] Blood 02/17/2024 11:4 3 AM EDT 02/17/2024 11:43 AM EDT Zak Graham MD CHEMISTRY ORDERABLE S [facility] [place] [address] * (ABNORMAL) BLOOD GAS 2 ARTERIAL (02/17/2024 11:08 AM EDT) pH Art 7.38 7.35 - 7.45 [facility] pCO2 Art 38 35 - 45 mmHg [facility] pO2 Art 334(H) 85 - 104 mmHg [facility] HCO3 Art 22.0 20.0 - 26.0 mmol/L [facility] BE Art -3.2(L) -3.0 - 3.0 mmol/L [facility] Hgb Blood Gas 10.8(L) 13.7 - 16.5 g/dL [facility] O2HB Art 98.7(H) 94.0 - 97.0 % [facility] COHB Art 0.3 % [facility] Comment: Nonsmokers: 0.5-1.5% COHB Smokers: Variable, but usually less than 10% Toxic: 20-30% COHB Lethal: Greater than 60% COHB METHB Art 0.3 <=1.5 % [facility] Na Whole Blood 131(L) 135 - 145 mmol/L [facility] K Whole Blood 6.4(Critic al) 3.5 - 5.0 mmol/L [facility] Comment: Noted by instrument assembly supervisor. Please note: Patients with WBC >100,000 may have falsely elevated Potassium levels. Contact the Clinical Chemistry Laboratory if there are any questions. ICa Whole Blood 0.98(L) 1.15 - 1.33 mmol/L [facility] Comment: Note: ??Total bilirubin higher than 20 mg/dL may lead to falsely low ionized calcium. CL Whole Blood 104 98 - 107 mmol/L [facility] Gluc Whole Bld 127 65 - 199 mg/dL [facility] Comment:Diabetes: >=200 mg/d L plus symptoms. Lactate WB 1.0 0.5 - 2.2 mmol/L [facility] Blood 02/17/2024 11:0 8 AM EDT 02/17/2024 11:08 AM EDT Zak Graham MD CHEMISTRY ORDERABLE S Performing Organization Address [facility] de Phone Number [facility] [place] [address] * (ABNORMAL) Hemoglobin and Hematocrit, blood (02/17/2024 11:04 AM EDT) Pathologist [facility] Hemoglobin 9.6(L) 13.7 - 16.5 g/dL [facility] Hematocrit 28.0(L) 40.5 - 48.5 % [facility] Comment: This result has been called to SILVIA PAGAN by Eddie López on 02 17 2024 at 1120, and has been read back. Blood 02/17/2024 11:0 4 AM EDT 02/17/2024 11:12 AM EDT Narrative Resulting Agency Comment Spec In Lab Zak Graham MD HEMATOLOGY ORDERABL ES Performing Organization Address [facility] de Phone Number [facility] [place] [address] * (ABNORMAL) Platelet count (02/17/2024 11:04 AM EDT) Platelets 106(L) 145 - 357 x10(3)/mc L [facility] Plat Immature % 1.6 0.0 - 7.4 % [facility] Comment: Limitation of the Immature Platelet Fraction (IPF)-May be less reliable when the platelet count is less than 85u300/uL due to statistical imprecision. The IPF value [...] in a decreased state of production. References: [employer] The Clinical Value of the Immature Platelet Fraction (IPF) in Cell Recovery Document Number [id number] 03/2011 [employer] The Role of the Immature Platelet Fraction (IPF) in the Differential Diagnosis of Thrombocytopenia, Document MKT-[id number] V002/15/14 P002/17 Blood 02/17/2024 11:0 4 AM EDT 02/17/2024 11:12 AM EDT Narrative Resulting Agency Comment Spec In Lab Zak Graham MD HEMATOLOGY ORDERABL ES Performing Organization Address [facility] [[email or web address]] Co de Phone Number [facility] [place] [address] * (ABNORMAL) Fibrinogen (02/17/2024 11:04 AM EDT) Pathologist [facility] Fibrinogen 149(L) 200 - 393 mg/dL [facility] Comment: OR Result [...] MD HEMATOLOGY ORDERABL ES Performing Organization Address [facility] [[email or web address]] Co de Phone Number [facility] [place] [address] * (ABNORMAL) BLOOD GAS 2 ARTERIAL (02/17/2024 10:41 AM EDT) Pathologist [facility] pH Art 7.37 7.35 - 7.45 [facility] pCO2 Art 44 35 - 45 mmHg [facility] pO2 Art 335(H) 85 - 104 mmHg [facility] HCO3 Art 24.9 20.0 - 26.0 mmol/L [facility] BE Art -0.4 -3.0 - 3.0 mmol/L [facility] Hgb Blood Gas 11.5(L) 13.7 - 16.5 g/dL [facility] O2HB Art 98.9(H) 94.0 - 97.0 % [facility] COHB Art 0.1 % [facility] Comment: Nonsmokers: 0.5-1.5% COHB Smokers: Variable, but usually less than 10% Toxic: 20-30% COHB Lethal: Greater than 60% COHB METHB Art 0.3 <=1.5 % [facility] Na Whole Blood 132(L) 135 - 145 mmol/L [facility] K Whole Blood 5.9(H) 3.5 - 5.0 mmol/L [facility] Comment: Please note: Patients with WBC >100,000 may have falsely elevated Potassium levels. Contact the Clinical Chemistry Laboratory if there are any questions. ICa Whole Blood 1.02(L) 1.15 - 1.33 mmol/L [facility] Comment: Note: ??Total bilirubin higher than 20 mg/dL may lead to falsely low ionized calcium. CL Whole Blood 104 98 - 107 mmol/L [facility] Gluc Whole Bld 129 65 - 199 mg/dL [facility] Comment:Diabetes: >=200 mg/d L plus symptoms. Lactate WB 1.1 0.5 - 2.2 mmol/L [facility] Blood 02/17/2024 10:4 1 AM EDT 02/17/2024 10:41 AM EDT Zak Graham MD CHEMISTRY ORDERABLE S [facility] [place] [address] * (ABNORMAL) BLOOD GAS 2 ARTERIAL (02/17/2024 10:06 AM EDT) pH Art 7.38 7.35 - 7.45 [facility] pCO2 Art 42 35 - [address] [facility] pO2 Art 329(H) 85 - 104 mmHg [facility] HCO3 Art 24.7 20.0 - 26.0 mmol/L [facility] BE Art -0.3 -3.0 - 3.0 mmol/L [facility] Hgb Blood Gas 11.0(L) 13.7 - 16.5 g/dL [facility] O2HB Art 99.0(H) 94.0 - 97.0 % [facility] COHB Art 0.3 % [facility] Comment: Nonsmokers: 0.5-1.5% COHB Smokers: Variable, but usually less than 10% Toxic: 20-30% COHB Lethal: Greater than 60% COHB METHB Art 0.3 <=1.5 % [facility] Na Whole Blood 132(L) 135 - 145 mmol/L [facility] K Whole Blood 6.0(H) 3.5 - 5.0 mmol/L [facility] Comment: Please note: Patients with WBC >100,000 may have falsely elevated Potassium levels. Contact the Clinical Chemistry Laboratory if there are any questions. ICa Whole Blood 0.97(L) 1.15 - 1.33 mmol/L [facility] Comment: Note: ??Total bilirubin higher than 20 mg/dL may lead to falsely low ionized calcium. CL Whole Blood 102 98 - 107 mmol/L [facility] Gluc Whole Bld 123 65 - 199 mg/dL [facility] Comment:Diabetes: >=200 mg/d L plus symptoms. Lactate WB 1.1 0.5 - 2.2 mmol/L [facility] Blood 02/17/2024 10:0 6 AM EDT 02/17/2024 10:06 AM EDT Zak Graham MD CHEMISTRY ORDERABLE S [facility] [place] [address] * Surgical Pathology Report (02/17/2024 10:01 AM EDT) FINAL DIAGNOSIS (AP) [id number] ? [facility]; A The signing pathologist has (i) examined the relevant preparation(s) for the specimen(s) and (ii) rendered or confirmed the diagnosis(es). . ?Surgical Pathology DIAGNOSIS Aortic valve leaflets, excision: Valve leaflets with myxoid degeneration, nodular fibrosis and dystrophic calcifications. Electronically signed by: ?Lindsay FERNANDEZ, Livier Gonzalez Verified: ??02/24/2024 13:49 ??Pathologist Performed at: ??[facility] Dept. of Pathology, [place] [address] Audio Specialist: Job Brewer MD, FCAP, ??CLIA Certificate: [id number] SPECIMEN(S) SUBMITTED A - Aortic Valve Leaflets, [...] Sections Processing Blocks submitted for decalcification: A1. Environmental Engineering Technician sections in 1 cassette labeled A1. ??ajw 02/24/2024 1:49 PM EDT [facility] AORTIC STRUCTURE / Unknown 02/17/2024 10:01 AM EDT 02/17/2024 10:01 AM EDT Zak Graham MD PATHOLOGY/[place] [address] * Specimen to Pathology (02/17/2024 10:01 AM EDT) AP Specimen 02/17/2024 10:0 1 AM EDT 02/17/2024 10:01 AM EDT Narrative [facility] - 02/17/2024 10:01 AM EDT Specimen requisition ordered. ??Separate Pathology report to follow Zak Graham MD PATHOLOGY/CYTOLOGY ORDERABLES Performing Organization Address City/[facility] [[email or web address]] [place] [address] * (ABNORMAL) BLOOD GAS 2 ARTERIAL (02/17/2024 9:35 AM EDT) pH Art 7.33(L) 7.35 - 7.45 [facility] pCO2 Art 35 35 - 45 mmHg [facility] pO2 Art 318(H) 85 - 104 mmHg [facility] HCO3 Art 17.9(L) 20.0 - 26.0 mmol/L [facility] BE Art -8.0(L) -3.0 - 3.0 mmol/L [facility] Hgb Blood Gas 11.0(L) 13.7 - 16.5 g/dL [facility] O2HB Art 98.8(H) 94.0 - 97.0 % [facility] COHB Art 0.3 % [facility] Comment: Nonsmokers: 0.5-1.5% COHB Smokers: Variable, but usually less than 10% Toxic: 20-30% COHB Lethal: Greater than 60% COHB METHB Art 0.3 <=1.5 % [facility] Na Whole Blood 131(L) 135 - 145 mmol/L [facility] K Whole Blood 5.8(H) 3.5 - 5.0 mmol/L [facility] Comment: Please note: Patients with WBC >100,000 may have falsely elevated Potassium levels. Contact the Clinical Chemistry Laboratory if there are any questions. ICa Whole Blood 0.98(L) 1.15 - 1.33 mmol/L [facility] Comment: Note: ??Total bilirubin higher than 20 mg/dL may lead to falsely low ionized calcium. CL Whole Blood 101 98 - 107 mmol/L [facility] Gluc Whole Bld 122 65 - 199 mg/dL [facility] Comment:Diabetes: >=200 mg/d L plus symptoms. Lactate WB 0.8 0.5 - 2.2 mmol/L [facility] Blood 02/17/2024 9:35 AM EDT 02/17/2024 9:35 AM EDT Zak Graham MD CHEMISTRY ORDERABLE S [facility] [place] [address] * (ABNORMAL) BLOOD GAS 2 VENOUS (02/17/2024 9:34 AM EDT) pH Jose 7.22(Criti marquez) 7.32 - 7.42 [facility] Comment:Noted by instrument assembly supervisor. pCO2 Jose 43 41 - 51 mmHg [facility] Comment:Noted by instrument assembly supervisor. pO2 Jose 57(H) 25 - 40 mmHg [facility] Comment:Noted by instrument assembly supervisor. HCO3 Jose 17.1 mmol/L [facility] Comment:Noted by instrument assembly supervisor. BE Jose -10.6 mmol/L [facility] Comment:Noted by instrument assembly supervisor. Hgb Blood Gas 11.2(L) 13.7 - 16.5 g/dL [facility] Comment:Noted by instrument assembly supervisor. O2HB Jose 86.5 % [facility] Comment:Noted by instrument assembly supervisor. COHB Jose 0.3 % [facility] Comment: Noted by instrument assembly supervisor. Nonsmokers: 0.5-1.5% COHB Smokers: Variable, but usually less than 10% Toxic: 20-30% COHB Lethal: Greater than 60% COHB METHB Jose 0.0 <=1.5 % [facility] Comment:Noted by instrument assembly supervisor. Na Whole Blood 156(H) 135 - 145 mmol/L [facility] Comment:Noted by instrument assembly supervisor. K Whole Blood 5.5(H) 3.5 - 5.0 mmol/L [facility] Comment: Noted by instrument assembly supervisor. Please note: Patients with WBC >100,000 may have falsely elevated Potassium levels. Contact the Clinical Chemistry Laboratory if there are any questions. ICa Whole Blood 1.03(L) 1.15 - 1.33 mmol/L [facility] Comment: Noted by instrument assembly supervisor. Note: ??Total bilirubin higher than 20 mg/dL may lead to falsely low ionized calcium. CL Whole Blood 100 98 - 107 mmol/L [facility] Comment:Noted by instrument assembly supervisor. Gluc Whole Bld 132 65 - 199 mg/dL [facility] Comment: Noted by instrument assembly supervisor. Diabetes: >=200 mg/dL plus symptoms Lactate WB 1.0 0.5 - 2.2 mmol/L [facility] Comment:Noted by instrument assembly supervisor. BGas Source Venous [facility] Blood 02/17/2024 9:34 AM EDT 02/17/2024 9:34 AM EDT Zak Graham MD CHEMISTRY ORDERABLE S [facility] [place] [address] * (ABNORMAL) BLOOD GAS 2 ARTERIAL (02/17/2024 8:07 AM EDT) pH Art 7.43 7.35 - 7.45 [facility] pCO2 Art 34(L) 35 - 45 mmHg [facility] pO2 Art 581(H) 85 - 104 mmHg [facility] HCO3 Art 21.7 20.0 - 26.0 mmol/L [facility] BE Art -2.6 -3.0 - 3.0 mmol/L [facility] Hgb Blood Gas 14.5 13.7 - 16.5 g/dL [facility] O2HB Art 99.0(H) 94.0 - 97.0 % [facility] COHB Art 0.4 % [facility] Comment: Nonsmokers: 0.5-1.5% COHB Smokers: Variable, but usually less than 10% Toxic: 20-30% COHB Lethal: Greater than 60% COHB METHB Art 0.3 <=1.5 % [facility] Na Whole Blood 139 135 - 145 mmol/L [facility] K Whole Blood 4.0 3.5 - 5.0 mmol/L [facility] Comment: Please note: Patients with WBC >100,000 may have falsely elevated Potassium levels. Contact the Clinical Chemistry Laboratory if there are any questions. ICa Whole Blood 1.09(L) 1.15 - 1.33 mmol/L [facility] Comment: Note: ??Total bilirubin higher than 20 mg/dL may lead to falsely low ionized calcium. CL Whole Blood 106 98 - 107 mmol/L [facility] Gluc Whole Bld 100 65 - 199 mg/dL [facility] Comment:Diabetes: >=200 mg/d L plus symptoms. Lactate WB 1.3 0.5 - 2.2 mmol/L [facility] Blood 02/17/2024 8:07 AM EDT 02/17/2024 8:07 AM EDT Zak Graham MD CHEMISTRY ORDERABLE S [facility] [place] [address] * POCT Glucose (02/17/2024 6:38 AM EDT) POC Glucose 98 65 - 199 mg/dL [facility] Comment: Supplemental ranges: <140 mg/dL before meals <180 mg/dL all other times of the day Blood 02/17/2024 6:38 AM EDT 02/17/2024 6:38 AM EDT Zak Graham MD POINT OF CARE TEST ORDERABLES Performing Organization Address [facility]/State/[facility] [[email or web address]] Co de Phone Number [facility] [place] [address] * Transesophageal Echo/OR (02/17/2024 6:33 AM EDT) [...] [facility] cardiac [...] 6 hours upon arrival to Unit. Give CO if unable to take PO, Routine Given [...] dose on Sat02/17/24 at 1400, Until Discontinued, [place] teeth and / or gums. Scan the CHG vial in the [place] Q-Care Oral Care Kit from floor stock. Ventilator-associated pneumonia prophylaxis For use in ICU/Critical care locations ONLY. Obtain kit from Floor Stock location. Scan CHG vial in the [place] Q-Care Oral Care Kit, Routine Given 02/17/2024 [...] restart at 50% of previous rate. Call bunk house worker if goal not achieved at maximum rate. [...] PHENYLephrine and/or vasopressin ineffective. Call pager # [phone] if initiated. Titrate to keep systolic blood [...] 2.0 L/min/M2. Maximum volume 2 L. Call bunk house worker for additional fluid orders: pager #[phone]. Rate/Dose Verify 02/18/2024 8:00 AM EDT 1 mL/hr 1 mL/hr Rate/Dose Verify 02/18/2024 6:00 AM EDT 1 mL/hr 1 mL/hr Rate/Dose Verify 02/18/2024 4:00 AM EDT 1 mL/hr 1 mL/hr sodium chloride 0.9% infusion 10-30 mL/hr, Intravenous, DAILY PRN, Starting on Sat02/17/24 at 1307, Until Sat02/18/24 at 0835, Side port TKO rate, per [facility] nursing protocol. Rate/Dose Verify 02/17/2024 8:00 PM EDT 30 mL/hr 30 mL/hr Rate/Dose Verify 02/17/2024 6:00 PM EDT 30 mL/hr 30 mL/h r Rate/Dose Verify 02/17/2024 5:00 PM EDT 30 mL/hr 30 mL/h r sodium chloride 0.9% infusion 10-30 mL/hr, Intravenous, DAILY PRN, Starting on Sat02/17/24 at 1307, Until Sat02/18/24 at 0835, Side port TKO rate, per [facility] nrusing protocol. Rate/Dose Verify 02/18/2024 8:00 [...] RN) 0930 (Not Given - Provider: Jazlyn Malodnado RN - Reason: Patient/family refused - Comment: [...] Ingrid Menjivar, COLBY)2101 (Given - Provider: Polo Britton RN) Linked [...] Routine documented in this encounter Care Teams Bilingual Account Manager Relationship Specialty Start Date End Date Aparna Jordan APRN PCP - General Family Medicine 10/21/23 documented as of this encounter
--- OUTSIDE RECORDS SUMMARY | 2024-05-08 08:04 | XMS_ITS | Encounter Summary ---
Author Organization [facility] Address [facility] [place] [address] Care Team Providers Care Business Unit Manager Name Role Phone Vanessa Christian DIGITAL PROJECT MANAGER Primary Care Provider [phone] Reason for Referral * Diagnostic Test (Routine) - Closed Specialty Diagnoses / Procedures Referred By Contac t Referred To Contact Radiology Diagnoses Nonrheumatic aortic valve stenosis Procedures CT Chest wo Contrast (Generic) Louisa Reid PA [facility] [place] [address] [facility] [place] [address] Referral ID Status Reason Start Date Expiration Date V isits Requested Visits Authorized [id number] Closed Specialty Service Requested 01/10/2024 07/11/2025 1 1 Encounter Details Date Type Department Care Team (Late st Contact Info) Description 01/09/2024 Orders [place] [address] Zak Farmer MD [facility] [place] [address] Nonrheumatic aortic valve stenosis Social History Tobacco [...] 11:00 AM EDT Office Visit Cardiology at [address] [place] [address] Neftali Ernandez MD [facility] [place] [place] [address] documented as of this encounter Results * CT Chest wo Contrast (Generic) (02/03/2024 7:44 AM EDT) [employer] WORKSTATION ID [id number] RAD Anatomical Region Laterality Modality Chest Computed [...] who have questions please contact the health healthcare customer service that requested your imaging first. ? Narrative [...] nodule along the minor fissure (series 302 ) and a 8 mm right lower lobe [...] patients who have questions please contactthe health healthcare customer service that requested your imaging first. Zak Farmer MD IMG CT ORDERABLES documented in this encounter Visit Diagnoses Diagnosis Nonrheumatic aortic valve stenosis Aortic valve disorders Nonrheumatic aortic valve stenosis Aortic valve disorders documented in this encounter Care Teams Business Unit Manager Relationship Specialty Start Date End Date Vanessa Christian APRN PCP - General Family Medicine 10/21/23 documented as of this encounter
--- OUTSIDE RECORDS SUMMARY | 2024-05-08 08:05 | XMS_ITS | Encounter Summary ---
Author Organization [facility] [place] [address] Care Team Providers Care Citrus Fruit Packer Name Role Phone Vanessa Christian APRN Primary Care Provider [phone] Encounter Details Date Type Department Care Team [...] AM EDT Office Visit Cardiology at [address] [place] [id number] Neftali Ernandez MD [facility] [place] [address] documented as of this encounter Visit Diagnoses Not on filedocumented in this encounter Care Teams Citrus Fruit Packer Relationship Specialty Start Date End Date Vanessa Christian APRN PCP - General Family Medicine 10/21/23 documented as of this encounter
--- OUTSIDE RECORDS SUMMARY | 2024-05-08 08:05 | XMS_ITS | Encounter Summary ---
Author Organization [facility] [place] [address] Care Team Providers Care Buffer Chrome Name Role Phone Vanessa Christian APRN Primary Care Provider [phone] Encounter Details Date Type Department Care Team (Late st Contact Info) Description 10/21/2023 Abstract Cardiology at [address] [phone] Adam Mayes RN Social History Tobacco Use [...] AM EDT Office Visit Cardiology at [address] [place] [address] Neftali Ernandez MD [facility] [place] [address] documented as of this encounter Visit Diagnoses Not on filedocumented in this encounter Care Teams Buffer Chrome Relationship Specialty Start Date End Date Vanessa Christian APRN PCP - General Family Medicine 10/21/23 documented as of this encounter
--- OUTSIDE RECORDS SUMMARY | 2024-05-08 08:05 | XMS_ITS | Encounter Summary ---
Author Organization [facility] [place] [address] Care Team Providers Care Ground Crew Supervisor Name Role Phone Vanessa Christian APRN Primary Care Provider [phone] Encounter Details Date Type Department Care Team (Late st Contact Info) Description 10/21/2023 Abstract Cardiology at [address] [phone] Adam Mayes RN Social History Tobacco Use [...] 11:00 AM EDT Office Visit Cardiology at [address] [phone] Neftali Ernandez MD [facility] [place] [address] documented as of this encounter Visit Diagnoses Not on filedocumented in this encounter Care Teams Ground Crew Supervisor Relationship Specialty Start Date End Date Vanessa Christian APRN PCP - General Family Medicine 10/21/23 documented as of this encounter
--- OUTSIDE RECORDS SUMMARY | 2024-05-08 08:05 | XMS_ITS | Encounter Summary ---
Author Organization [facility]ly [facility] [place] [address] Care Team Providers Care Cupola Melter Name Role Phone Vanessa Christian MAURI Primary Care Provider [phone] Encounter Details Date Type Department Care Team (Latest Contact Info) Description 01/09/2024 3:00 PM EDT Laboratory [place] [phone] Nonrheumatic aortic valve stenosis Social History Tobacco Use Types Packs/Day Years Used Date Smoking Tobacco: Former Cigarettes Smokeless Tobacco: Never Comments:Quit 15 + years ago Alcohol Use Standard Drinks/Week Comments Yes 0 (1 standard drink = 0.6 oz pur e alcohol) rare [facility] Inpatient Questions Answer Date Recorded Prevent Contact [...] 11:00 AM EDT Office Visit Cardiology at [address] [phone] Neftali Ernandez MD [facility] [place] [address] documented as of this encounter Procedures Procedure Name Priority Date/Time Associated Diagnosis Comments ABORH RECHECK STATUS Routine 01/09/2024 2:58 PM EDT HEMOGRAM Routine 01/09/2024 2:58 PM EDT Nonrheumatic aortic valve stenosis DIFFERENTIAL, AUTOMATED Routine 01/09/2024 2:58 PM EDT Nonrheumatic aortic valve stenosis TYPE AND SCREEN, SDP (FUTURE SURGERY, [facility] SAME DAY PROGRAM ONLY) Routine 01/09/2024 2:58 [...] PM EDT) ABORH Recheck Order Order Placed [facility] ABORH Type Recheck Completed [facility] Blood 01/09/2024 2:58 PM EDT 01/09/2024 3:08 PM EDT Narrative Resulting Agency Comment Spec In Lab Zak Farmer MD BLOOD BANK LAB CECILIO ALEMAN [facility] [place] [address] * Differential, Automated (01/09/2024 2:58 PM EDT) Neutrophils % 70.5 % [facility] Neutr Abs (ANC) 4.34 1.70 - 6.10 x10(3)/[facility] Lymphocytes % 18.9 % [facility] Lymphocytes Abs 1.2 0.9 - 3.2 x10(3)/[facility] Monocytes % 8.0 % [facility] Monocyte Abs 0.5 0.3 - 0.9 x10(3)/[facility] Eosinophils % 1.6 % [facility] Eosinophils Abs 0.1 0.0 - 0.4 x10(3)/[facility] Basophils % 0.5 % [facility] Basophils Abs 0.0 0.0 - 0.1 x10(3)/[facility] Immature Gran % 0.50 % [facility] Comment: Immature granulocytes(IG's)percentage and absolute count will include metamyelocytes, myelocytes, and promyelocytes. Blood smears from CBCs yielding IG's will be scanned manually for concordance. If this scan disagrees with the automated IG or if promyelocytes are noted, a manual differential will be performed. [place] Gran Abs 0.03 0.00 - 0.04 x10(3)/[facility] Blood 01/09/2024 2:58 PM EDT 01/09/2024 3:03 PM EDT Narrative Resulting Agency Comment Spec In Lab Zak Farmer MD HEMATOLOGY ORDERABL ES [facility] [place] [address] * Hemogram (01/09/2024 2:58 PM EDT) WBC 6.2 4.0 - 9.5 x10(3)/[facility] RBC 5.53 4.58 - 5.54 x10(6)/[facility] Hemoglobin 16.1 13.7 - 16.5 g/dL [facility] Hematocrit 46.9 40.5 - 48.5 % [facility] MCV 84.8 82.9 - 93.1 fL [facility] MCH 29.1 27.5 - 32.1 pg [facility] MCHC 34.3 32.0 - 35.7 g/dL [facility] Platelets 187 145 - 357 x10(3)/[facility] RDWSD 39.2 36.0 - 45.0 [facility] RDWCV 12.6 11.4 - 13.8 % [facility] MPV 9.5 7.6 - 12.9 [facility] nRBC % Auto 0.0 % [facility] nRBC Abs Auto 0.000 0.000 - 0.000 x10(3)/[facility] Blood 01/09/2024 2:58 PM EDT 01/09/2024 3:03 PM EDT Narrative Resulting Agency Comment Spec In Lab Zak Farmer MD HEMATOLOGY ORDERABL ES [facility] [place] [address] * Basic Metabolic Panel (non-fasting) (01/09/2024 2:58 PM EDT) Glucose Lvl 102 65 - 199 mg/dL [facility] Comment:Diabetes: >=200 mg/d L plus symptoms BUN 15 10 - 20 mg/dL [facility] Creatinine 0.94 0.80 - 1.50 mg/dL [facility] Sodium 137 135 - 145 mmol/L [facility] Potassium 4.5 3.5 - 5.0 mmol/L [facility] Comment: Please note: ??Patients with WBC >100,000 may have falsely elevated Potassium levels. ??For accurate Potassium quantification in these patients send serum separator tube (gold top) for subsequent determinations. ??Contact the Clinical Chemistry Laboratory if there are any questions. Chloride 103 98 - 107 mmol/L [facility] CO2 27 22 - 31 mmol/L [facility] Anion Gap 7 5 - 15 mmol/L [facility] Calcium 9.5 8.5 - 10.5 mg/dL [facility] Estimated GFR 91 >=60 mL/min/1. 73 m?? [facility] Comment: This patient's [...] MD CHEMISTRY ORDERABLE S Performing Organization Address City/State/[facility] Co de Phone Number [facility] [place] [address] * Hepatic Function Panel (01/09/2024 2:58 PM EDT) Total Protein 6.7 6.1 - 8.0 g/dL [facility] Albumin 4.5 3.2 - 5.2 g/dL [facility] AST 21 0 - 39 unit/L [facility] ALT 21 0 - 55 unit/L [facility] Alk Phos 81 40 - 130 unit/L [facility] Total Bilirubin 0.7 0.2 - 1.3 mg/dL [facility] Bili, Direct 0.2 0.0 - 0.3 mg/dL [facility] Blood 01/09/2024 2:58 PM EDT 01/09/2024 3:03 PM EDT Narrative Resulting Agency Comment Spec In Lab Zak Farmer MD CHEMISTRY ORDERABLE S Performing Organization Address [facility] Co de Phone Number [facility] [place] [address] * Prothrombin Time (01/09/2024 2:58 PM EDT) PT 10.6 9.4 - 12.5 sec [facility] INR 0.9 [facility] Comment: An INR <2.0 indicates [...] MD HEMATOLOGY ORDERABL ES Performing Organization Address [facility] Co de Phone Number [facility] [place] [address] * Type and Screen Future Surgery, [facility] [place] SAME DAY PROGRAM ONLY) (01/09/2024 2:58 PM EDT) ABORH Type O NEGATIVE [facility] Patient BB History Not Found [facility] Expires at [id number] on: 02-20-2024 [facility] Ab Screen Interp Negative [facility] Blood 01/09/2024 2:58 PM EDT 01/09/2024 2:58 PM EDT Narrative Resulting Agency Comment Spec In Lab Zak Farmer MD BLOOD BANK LAB ORDE RABLES Performing Organization Address City/[facility]/ZIP Co de Phone [place] [address] documented in this encounter Visit Diagnoses Diagnosis Nonrheumatic aortic valve stenosis Aortic valve disorders documented in this encounter Care Teams Cupola Melter Relationship Specialty Start Date End Date Vanessa Christian APRN PCP - General Family Medicine 10/21/23 documented as of this encounter
--- OUTSIDE RECORDS SUMMARY | 2024-05-08 08:05 | XMS_ITS | Encounter Summary ---
Author Organization [facility] [place] [address] Care Team Providers Care Volunteer Services Coordinator Name Role Phone Vanessa Christian APRN Primary Care Provider [phone] Encounter Details Date Type Department Care Team (Late st Contact Info) Description 12/26/2023 Notes Only Cardiology at [address] [phone] Neftali Ernandez MD [facility] [place] [address] Social History Tobacco Use Types Packs/Day Years [...] 1:37 PM EDT Echocardiogram images reviewed from [facility]. Indeed, the aortic valve appears severely stenotic. Cannotrule out bicuspid valve documented in this encounter Plan of Treatment Upcoming Encounters Date Type Department Care Team (Late st Contact Info) Description 05/27/2024 11:00 AM EDT Office Visit Cardiology at [address] [phone] Neftali Ernandez MD [facility] [place] [address] documented as of this encounter Visit Diagnoses Not on filedocumented in this encounter Care Teams Volunteer Services Coordinator Relationship Specialty Start Date End Date Vanessa Christian APRN PCP - General Family Medicine 10/21/23 documented as of this encounter
--- OUTSIDE RECORDS SUMMARY | 2024-05-08 08:05 | XMS_ITS | Encounter Summary ---
Author Organization [facility] Address [facility] [place] [address] Care Team Providers Care Point Of Sale Associate Name Role Phone Vanessa Christian MAURI Primary Care Provider [phone] Reason for Visit * Consultation (Routine) - Closed Specialty Diagnoses / Procedures Referred By Contac t Referred To Contact Cardiac Surgery Diagnoses Nonrheumatic aortic valve stenosis significant - TAVR ( defers to Card Surg d/t age) Neftali Ernandez MD [facility] [place] [address] Zak Farmer MD [facility] [place] [address] Referral ID Status Reason Start Date Expiration Date V isits Requested Visits Authorized [id number] Closed Consult, Test & Treat 10/21/2023 10/20/2024 1 1 Encounter Details Date Type Department Care Team (Late st Contact Info) Description 01/09/2024 1:40 PM EDT Office Visit [place] [address] Zak Farmer MD [facility] [place] [address] Nonrheumatic aortic valve stenosis Social [...] 01/09/2024 1:40 PM EDT To: MD Vanessa Coles APRN Re; Karlos Santa ( 1960) We [...] office. Best personal regards, Zak Farmer MD [phone] In aggregate 55 minutes were spent evaluating [...] AM EDT Office Visit Cardiology at [address] [place] [phone] Neftali Ernandez MD [facility] [place] [address] documented as of this encounter Results * [...] questions please contact the health personal care aid that requested your imaging first. ? Electronically signed by: Toby Dave MD, [facility] ([phone]), at 01/09/2024 3:11 PM Narrative 01/09/2024 3:11 PM EDT EXAMINATION: XR [...] have questions please contactthe health personal care aid that requested your imaging first. Electronically signed by: Toby Dave MD, [facility]([phone]), at 01/09/2024 3:11 PM Zak Farmer MD IMG DX ORDERABLES * Basic Metabolic Panel (non-fasting) (01/09/2024 2:58 PM EDT) Glucose Lvl 102 65 - 199 mg/dL [facility] Comment:Diabetes: >=200 mg/d L plus symptoms BUN 15 10 - 20 mg/dL [facility] Creatinine 0.94 0.80 - 1.50 mg/dL [facility] Sodium 137 135 - 145 mmol/L [facility] Potassium 4.5 3.5 - 5.0 mmol/L [facility] Comment: Please note: ??Patients with WBC >100,000 may have falsely elevated Potassium levels. ??For accurate Potassium quantification in these patients send serum separator tube (gold top) for subsequent determinations. ??Contact the Clinical Chemistry Laboratory if there are any questions. Chloride 103 98 - 107 mmol/L [facility] CO2 27 22 - 31 mmol/L [facility] Anion Gap 7 5 - 15 mmol/L [facility] Calcium 9.5 8.5 - 10.5 mg/dL [facility] Estimated GFR 91 >=60 mL/min/1. 73 m?? [facility] Comment: This patient's estimated GFR [...] Lab Zak Farmer MD CHEMISTRY ORDERABLE S [facility] [place] [address] * Hepatic Function Panel (01/09/2024 2:58 PM EDT) Total Protein 6.7 6.1 - 8.0 g/dL [facility] Albumin 4.5 3.2 - 5.2 g/dL [facility] AST 21 0 - 39 unit/L [facility] ALT 21 0 - 55 unit/L [facility] Alk Phos 81 40 - 130 unit/L [facility] Total Bilirubin 0.7 0.2 - 1.3 mg/dL [facility] Bili, Direct 0.2 0.0 - 0.3 mg/dL [facility] Blood 01/09/2024 2:58 PM EDT 01/09/2024 3:03 PM EDT Narrative Resulting Agency Comment Spec In Lab Zak Farmer MD CHEMISTRY ORDERABLE S Performing Organization Address [facility]/ZIP Co de Phone Number [facility] [place] [address] * Prothrombin Time (01/09/2024 2:58 PM EDT) Pathologist [facility] PT 10.6 9.4 - 12.5 sec [facility] INR 0.9 [facility] Comment: An INR <2.0 [...] MD HEMATOLOGY ORDERABL ES Performing Organization Address City/[facility]/ZIP Co de Phone Number [facility] [place] [address] * Type and Screen Future Surgery, [facility] SAME [place] ONLY) (01/09/2024 2:58 PM EDT) ABORH Type O NEGATIVE [facility] Patient BB History Not Found [facility] Expires at [id number] on: 02-20-2024 [facility] Ab Screen Interp Negative [facility] Blood 01/09/2024 2:58 PM EDT 01/09/2024 2:58 PM EDT Narrative Resulting Agency Comment Spec In Lab Zak Farmer MD BLOOD BANK LAB CECILIO ALEMAN [facility] Organization Address City/State/ZIP Co de Phone Number [facility] [place] [address] documented in this encounter Visit Diagnoses Diagnosis Nonrheumatic aortic valve stenosis Aortic valve disorders Nonrheumatic aortic valve stenosis Aortic valve disorders documented in this encounter Care Teams Point Of Sale Associate Relationship Specialty Start Date End Date Vanessa Christian APRN PCP - General Family Medicine 10/21/23 documented as of this encounter
--- OUTSIDE RECORDS SUMMARY | 2024-05-08 08:05 | XMS_ITS | Encounter Summary ---
[place] [address] Care Team Providers Care Sheet Metal Duct Installer Helper Name Role Phone Victor M Lafleur MD Primary Care Provider [phone] Reason for Visit * Reason Onset Date Comments Referral 09/20/2023 Encounter Details Date Type Department Care Team (Late st Contact Info) Description 09/20/2023 Telephone Cardiology at [address] [phone] Karen Billy, benefits representative Social History Tobacco Use Types Packs/Day Years [...] AM EDT Office Visit Cardiology at [address] [place] [address] Neftali Ernandez MD [facility] [place] [address] documented as of this encounter Visit Diagnoses Not on filedocumented in this encounter Care Teams Sheet Metal Duct Installer Helper Relationship Specialty Start Date End Date Victor M Lafleur MD PCP - General 10/02/13 10/20/23 documented as of this encounter
--- OUTSIDE RECORDS SUMMARY | 2024-05-08 08:05 | XMS_ITS | Encounter Summary ---
Author Organization [facility] [place] [address] Care Team Providers Care Ring Attacher Name Role Phone Victor M Lafleur MD Primary Care Provider [phone] Encounter Details Date Type Department Care Team (Late st Contact Info) Description 09/26/2023 Abstract Cardiology at [address] [phone] Karen Billy, RN Nonrheumatic aortic [...] AM EDT Office Visit Cardiology at [address] [phone] Neftali Ernandez MD [facility] [place] [address] documented as of this encounter Visit Diagnoses Diagnosis Nonrheumatic aortic valve stenosis Aortic valve disorders Nevus of face Benign neoplasm of skin of other and unspecified parts of face documented in this encounter Care Teams Ring Attacher Relationship Specialty Start Date End Date Victor M Lafleur MD PCP - General 10/02/13 10/20/23 documented as of this encounter
--- OUTSIDE RECORDS SUMMARY | 2024-05-08 08:05 | XMS_ITS | Encounter Summary ---
Author Organization [facility] [address] Care Team Providers Care Handkerchief Maker Name Role Phone Vanessa Christian Lane DOTSON Primary Care Provider [phone] Encounter Details Date Type Department Care Team (Late st Contact Info) Description 01/09/2024 2:30 PM EDT Clinical Support Same Day at [facility] [place] [phone] Social History Tobacco Use Types Packs/Day Years Used Date Smoking Tobacco: Former Cigarettes Smokeless Tobacco: Never Comments:Quit 15 + years ago Alcohol Use Standard Drinks/Week Comments Yes 0 (1 standard drink = 0.6 oz pur e alcohol) rare [facility] Inpatient Questions Answer Date Recorded Prevent Contact [...] you tube link for a video about [facility] cardiac surgery. Instructed to bring the booklet [...] type and screen performed while in the [facility]. Sent to Radiology for chest x-ray. Special medication instructions: None Procedure date: not booked. Darian documented in this encounter Plan of Treatment Upcoming Encounters Date Type Department Care Team (Late st Contact Info) Description 05/27/2024 11:00 AM EDT Office Visit Cardiology at [address] [phone] Neftali Ernandez MD [facility] [place] [address] documented as of this encounter Visit Diagnoses Not on filedocumented in this encounter Care Teams Handkerchief Maker Relationship Specialty Start Date End Date Vanessa Christian APRN PCP - General Family Medicine 10/21/23 documented as of this encounter
--- OUTSIDE RECORDS SUMMARY | 2024-05-08 08:05 | XMS_ITS | Encounter Summary ---
Author Organization [facility] [place] [address] Care Team Providers Care Administrative Services Officer Name Role Phone Vanessa Christian APRN Primary Care Provider [phone] Encounter Details Date Type Department Care Team [...] 11:00 AM EDT Office Visit Cardiology at [address] [place] [phone] Neftali Ernandez MD [facility] [place] [address] documented as of this encounter Visit Diagnoses Not on filedocumented in this encounter Care Teams Administrative Services Officer Relationship Specialty Start Date End Date Vanessa Christian APRN PCP - General Family Medicine 10/21/23 documented as of this encounter
--- OUTSIDE RECORDS SUMMARY | 2024-05-08 08:05 | XMS_ITS | Encounter Summary ---
Author Organization [facility] Address [facility] Ivana linareseileen [place] [id number] Care Team Providers Care Rubber Compounder Mixer Name Role Phone Vanessa Christian MAURI Primary Care Provider [phone] Reason for Referral * Consultation (Routine) - Closed Specialty Diagnoses / Procedures Referred By Contac t Referred To Contact Cardiac Surgery Diagnoses Nonrheumatic aortic valve stenosis significant - TAVR ( defers to Card Surg d/t age) Errol Loya MD [facility] [place] [address] Zak Farmer MD [facility] [place] [address] Referral ID Status Reason Start Date Expiration Date V isits Requested Visits Authorized [id number] Closed Consult, Test & Treat 10/21/2023 10/20/2024 1 1 Reason for Visit * Reason Comments Chest Pain Shortness of Breath Aortic Stenosis Encounter Details Date Type Department Care Team (Late st Contact Info) Description 10/21/2023 1:20 PM EST Office Visit Cardiology at [address] [phone] Errol Loya MD [facility] [place] [address] Nonrheumatic aortic valve stenosis Social History Tobacco [...] Problem List Diagnosis Aortic stenosis 12/2022 TTE ([facility]): VITA 0.8-0.9 cm2 (MG 28 mmHg, DOI 3.6 m/s, SVI 35 cc/m2). Trace regurgitation. Normal bi-v s/f, no other valve findings Gastroesophageal reflux Nevus of face Right orthodoxy Hypertension HLD (hyperlipidemia) MEDICATIONS: Current Outpatient Medications [...] 11:00 AM EDT Office Visit Cardiology at [address] [address] Errol Loya MD [facility] [place] [address] Scheduled Referrals Name Type Priority Associated Diagnoses Order Schedule Amb Referral to Structural Heart Outpatient Referral Routine Nonrheumatic aortic valve stenosis Ordered: 10/21/2023 documented as of this encounter Visit Diagnoses Diagnosis Nonrheumatic aortic valve stenosis Aortic valve disorders documented in this encounter Care Teams Rubber Compounder Mixer Relationship Specialty Start Date End Date Vanessa Christian APRN PCP - General Family Medicine 10/21/23 documented as of this encounter
--- OUTSIDE RECORDS SUMMARY | 2024-05-11 08:12 | XMS_ITS | Encounter Summary ---
Author Organization Count Includes [facility] Address [facility] [place] [address] Care Team Providers Care Technician Semiconductor Development Name Role Phone Vanessa Christian MAURI Primary Care Provider Encounter Details Date Type Department Care Team (Late st Contact Info) Description 03/12/2024 2:40 PM EDT Office [place] [id number] Zak Farmer MD [facility] [place] [address] Coronary artery disease, unspecified vessel or lesion type, unspecified whether angina present, unspecified whether [place] or transplanted heart Social History Tobacco Use Types Packs/Day Years Used Date Smoking Tobacco: Former Cigarettes Smokeless Tobacco: Never Comments:Quit 15 + years ago Alcohol Use Standard Drinks/Week Comments Yes 0 (1 standard drink = 0.6 oz pur e alcohol) rare [facility] Utilities Answer Date Recorded In the past 12 months has e [employer], gas, oil, or water [email or web address] threatened to shut off services in your [...] 2:40 PM EDT To: MD Vanessa Coles, INFORMATION SYSTEMS AUDIT MANAGER Re; Karlos Santa ( 1960) We had [...] office. Best personal regards, Zak Farmer MD [phone] documented in this encounter Plan of Treatment Upcoming Encounters Date Type Department Care Team (Late st Contact Info) Description 05/27/2024 11:00 AM EDT Office Visit Cardiology at [address] [place] [address] Neftali Ernandez MD [facility] [place] [address] documented as of this encounter Procedures Procedure Name Priority Date/Time Associated Diagnosis Comments EKG 12-LEAD Routine 03/12/2024 2:35 PM EDT Coronary artery disease, unspecified vessel or lesion type, unspecified whether angina present, unspecified whether [place] or transplanted heart documented in this encounter Results * EKG 12 Lead (03/12/2024 2:35 PM EDT) Ventricular rate 59 BPM MUSE SYSTEM Atrial Rate 59 BPM MUSE SYSTEM P-R Interval 190 ms MUSE SYSTEM QRS Duration 92 ms MUSE SYSTEM Q-T Interval 406 ms MUSE SYSTEM QTC Calculated (Bezet) 401 ms MUSE SYSTEM Calculated P [place] -12 degrees MUSE SYSTEM Calculated R [place] 24 degrees MUSE SYSTEM Calculated T [place] 74 degrees MUSE SYSTEM INTERPRETATION Sinus bradycardia T wave abnormality, consider anterior ischemia Abnormal ECG When compared with ECG of 17-FEB-2024 13:24, VT interval has decreased T wave inversion now evident in Anterior leads Confirmed by Paul Guzman ([id number]) on 03/15/2024 8:36:23 AM MUSE SYSTEM 03/12/2024 2:35 PM EDT 03/15/2024 8:36 AM EDT Zak Farmer MD ECG ORDERABLES MUSE SYSTEM documented in this encounter Visit Diagnoses Diagnosis Coronary artery disease, unspecified vessel or lesion type, unspecified whether angina present, unspecified whether [place] or transplanted heart documented in this encounter Care Teams Technician Semiconductor Development Relationship Specialty Start Date End Date Vanessa Chrsitian, MAURI PCP - General Family Medicine 10/21/23 documented as of this encounter
--- OUTSIDE RECORDS SUMMARY | 2024-05-11 08:12 | XMS_ITS | Encounter Summary ---
Author Organization [facility] Address [facility] [place] [address] Care Team Providers Care Length Control Tester Name Role Phone Vanessa Christian MAURI Primary Care Provider [phone] Encounter Details Date Type Department Care Team (Latest Contact Info) Description 03/12/2024 1:30 PM EDT - 03/12/2024 11:59 PM EDT Hospital Encounter XRay at [address] [place] [address] Coronary artery disease, unspecified vessel or lesion type, unspecified whether angina present, unspecified whether [place] or transplanted heart Discharge Disposition: Home Social History Tobacco Use Types Packs/Day Years Used Date Smoking Tobacco: Former Cigarettes Smokeless Tobacco: Never Comments:Quit 15 + years ago Alcohol Use Standard Drinks/Week Comments Yes 0 (1 standard drink = 0.6 oz pur e alcohol) rare [facility] Utilities Answer Date Recorded In the past 12 months has e [employer], gas, oil, or water [employer] threatened to shut off services in your [...] place to sleep or slept in a skilled nursing (including now)? No 02/18/2024 DH IPV Inpatient [...] 11:00 AM EDT Office Visit Cardiology at [address] [place] [address] Neftali Ernandez MD [facility] [place] [address] documented as of this encounter Procedures Procedure Name Priority Date/Time Associated Diagnosis Comments XR CHEST PA AND LATERAL Routine 03/12/2024 1:42 PM EDT Coronary artery disease, unspecified vessel or lesion type, unspecified whether angina present, unspecified whether [place] or transplanted heart documented in this encounter Results * XR Chest PA & Lateral (Generic) (03/12/2024 1:42 PM EDT) WORKSTATION ID [id number] RAD Anatomical Region Laterality Modality Chest N/A [...] who have questions please contact the health director day care center that requested your imaging first. ? Electronically signed by: Augie Sanchez MD, [facility] ([phone]), at 03/13/2024 8:28 AM Narrative 03/13/2024 8:28 AM EDT EXAMINATION: XR CHEST PA AND LATERAL (GENERIC) CLINICAL HISTORY: s/p cabg eval effusions I25.10, Atherosclerotic heart disease of [place] coronary artery without angina pectoris TECHNIQUE: PA [...] eval effusions I25.10, Atherosclerotic heart disease of [place] coronary artery withoutangina pectoris TECHNIQUE: PA and [...] patients who have questions please contactthe health director day care center that requested your imaging first. Electronically signed by: Augie Sanchez MD, [facility]([phone]), at 03/13/2024 8:28 AM Zak Farmer MD IMG DX ORDERABLES documented in this encounter Visit Diagnoses Diagnosis Coronary artery disease, unspecified vessel or lesion type, unspecified whether angina present, unspecified whether [place] or transplanted heart documented in this encounter Care Teams Length Control Tester Relationship Specialty Start Date End Date Vanessa Christian APRN PCP - General Family Medicine 10/21/23 documented as of this encounter
--- OUTSIDE RECORDS SUMMARY | 2024-05-11 08:12 | XMS_ITS | Encounter Summary ---
Author Organization [facility] Address [facility] [place] [address] Care Team Providers Care Satellite Dish Technician Name Role Phone Vanessa Christian MAUIR Primary Care Provider [phone] Encounter Details Date Type Department Care Team (Latest Contact Info) Description 03/12/2024 Travel Social History Tobacco Use Types Packs/Day Years Used Date Smoking Tobacco: Former Cigarettes Smokeless Tobacco: Never Comments:Quit 15 + years ago Alcohol Use Standard Drinks/Week Comments Yes 0 (1 standard drink = 0.6 oz pur e alcohol) rare [facility] Utilities Answer Date Recorded In the past [...] place to sleep or slept in a snf (including now)? No 02/18/2024 DH IPV Inpatient [...] AM EDT Office Visit Cardiology at [address] [place] [phone] Neftali Ernandez MD [facility] [place] [address] documented as of this encounter Visit Diagnoses Not on filedocumented in this encounter Care Teams Satellite Dish Technician Relationship Specialty Start Date End Date Vanessa Christian APRN PCP - General Family Medicine 10/21/23 documented as of this encounter
--- OUTSIDE RECORDS SUMMARY | 2024-05-11 08:12 | XMS_ITS | Clinical Summary ---
Author Organization [facility] Address [address] [place] [address] Care Team Providers Care Dance Artist Name Role Phone Vanessa Christian NP Primary Care Provider [phone] Social History Tobacco Use Types Packs/Day Years [...] COVID-19 Vaccine (2022-24 season) 2023 Care Teams Dance Artist Relationship Specialty Start Date End Date Vanessa Christian NP [address] [place] [phone] PCP - General Family Medicine - Primary Care 10/07/23
--- OUTSIDE RECORDS SUMMARY | 2024-05-11 08:12 | XMS_ITS | Encounter Summary ---
Author Organization [facility] Address [address] [place] [address] Care Team Providers Care Steel Die Press Set Up Operator Name Role Phone Vanessa Christian Lane MONCADA Primary Care Provider [phone] Encounter Details Date Type Department Care Team (Late st Contact Info) Description 10/24/2023 Lab Requisition [facility] Pathology & Laboratory Medicine - [address] [address] Oscar Nichole MD [address] [place] [phone] Factitial dermatitis Social History Tobacco Use Types [...] management options, if applicable. 10/28/2023 11:24 EST [facility] Final Diagnosis A. SKIN OF PRESYBETERIAN, LEFT, SHAVE BIOPSY: - Seborrheic keratosis, pigmented. 10/28/2023 11:24 EST [facility] Attestation By the signature below, the attending physician certifies that they have 1) personally conducted a gross and/or microscopic examination of the described specimen(s), and/or personally interpreted the results of laboratory testing of the described specimen(s), and 2) personally rendered or confirmed the above diagnosis. 10/28/2023 11:24 [facility] at [address] Microscopic Description The stratum corneum is thickened by compact and basketweave orthokeratosis with formation of horn pseudocysts. The epidermis is acanthotic with formation of broad and anastomosing trabeculae. The trabeculae are composed of basaloid keratinocytes with round uniform nuclei. The keratinocytes have a variable amount of melanin pigment. 10/28/2023 11:24 [facility] Clinical History Pigmented 2 cm patch; clinical diagnosis code: L98.1 10/28/2023 11:24 [facility] Gross Description A. Received in formalin labelled with proper patient identification (initials P, A) and left presybeterian is a shave biopsy of an irregular [...] A3. Nora Anderson 10/25/2023 8:47 10/28/2023 11:24 [facility] Performing Lab [facility] 10/28/2023 11:24 [facility] Scanned Images 10/28/2023 11:24 [facility] Tissue SPECIMEN FROM SKIN / Unknown 10/24/2023 14:30 EST 10/24/2023 22:04 EST Oscar Nichole MD PATHOLOGY ORDERABLES [facility] [address] [place] [address] documented in this encounter Visit Diagnoses Diagnosis Factitial dermatitis Dermatitis factitia (artefacta) documented in this encounter Care Teams Steel Die Press Set Up Operator Relationship Specialty Start Date End Date Vanessa Christian NP [address] [place] [address] PCP - General Family Medicine - Primary Care 10/07/23 documented as of this encounter
--- OUTSIDE RECORDS SUMMARY | 2024-05-11 08:12 | XMS_ITS | Clinical Summary ---
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 Logistics and preliminary review of TONY were reviewed with patient. - Refer to SHT Hypertension 08/14/2023 HLD (hyperlipidemia) 08/14/2023 Resolved Problems Problem Noted Date Diagnosed Date Resolved Date Chest pressure 08/14/2023 10/21/2023 SILVA (dyspnea on exertion) 08/14/2023 Encounters Date Type Department Care Team Description 03/12/2024 2:40 PM EDT Office [place] [address] Zak Farmer MD Coronary artery disease, unspecified vessel or lesion type, unspecified whether angina present, unspecified whether upper sioux or transplanted heart 03/12/2024 1:30 PM EDT - 03/12/2024 11:59 PM EDT Hospital Encounter XRay at [address] [place] [id number] Coronary artery disease, unspecified vessel or lesion type, unspecified whether angina present, unspecified whether upper sioux or transplanted heart Discharge Disposition: Home 03/12/2024 Travel 02/24/2024 Orders [place] [address] Trudi Lester APRN 02/17/2024 7:35 AM EDT Anesthesia Event [place] [address] Tara York MD 02/17/2024 7:30 AM EDT - 02/17/2024 1:26 PM EDT Surgery [place] [address] Zak Farmer MD ENDOSCOPIC HARVEST VEIN(S) FOR CABG (WRVU 0.31) 02/17/2024 5:43 AM EDT - 02/24/2024 11:23 AM EDT Hospital Encounter Heart and Vascular Unit Level 4 [place] [address] Zak Faremr MD S/P AVR (Primary Dx); Aortic valve stenosis, etiology of cardiac valve disease unspecified Discharge Disposition: Home with VNA 02/14/2024 Orders [place] [address] Zak Farmer MD Coronary artery disease, unspecified vessel or lesion type, unspecified whether angina present, unspecified whether upper sioux or transplanted heart (Primary Dx) from Last 3 Months Social History Tobacco Use Types Packs/Day Years Used Date Smoking Tobacco: Former Cigarettes Smokeless Tobacco: Never Comments:Quit 15 + years ago Alcohol Use Standard Drinks/Week Comments Yes 0 (1 standard drink = 0.6 oz pur e alcohol) rare [facility] Utilities Answer Date Recorded In the past 12 months has [employer], gas, oil, or water [employer] threatened to shut off services in your [...] AM EDT Office Visit Cardiology at [address] [place] [address] Neftali Ernandez MD [facility] [place] [address] Health Maintenance Due Date Last Done Comments [...] series) 06/07/2024 Medical Devices Implanted Type Area Quilt Stuffer Device Identifier Shelf Expiration Date Model / Serial / Lot Cable,Cut,Edg ,Blnt,Ss,3tpr ([id number]) - [id number] Implanted:Qty : 1 on 02/17/2024 by Zak Farmer MD at [facility] IMPLANTS Midline: Chest [employer] - [id number] 09/02/2028 [id number] / / [id number] Valve Coronary Aortic 23mm Tissue Trnscath Biopros Inspiris ([id number]) (Autoreq) - [id number] Implanted:Qty : 1 on 02/17/2024 by Zak Farmer MD at [facility] IMPLANTS Heart [employer] - TSAI LI 09/15/2027 [id number] 23MM / [id number] / Procedures Procedure Name Priority Date/Time Associated Diagnosis Comments EKG 12-LEAD Routine 03/12/2024 2:35 PM EDT Coronary artery disease, unspecified vessel or lesion type, unspecified whether angina present, unspecified whether upper sioux or transplanted heart XR CHEST PA AND LATERAL Routine 03/12/20 1:42 PM EDT Coronary artery disease, unspecified vessel or lesion type, unspecified whether angina present, unspecified whether upper sioux or transplanted heart SCAN DOC: TELEMETRY STRIPS 02/24/2024 8:03 AM EDT SCAN DOC: TELEMETRY STRIPS 02/24/2024 7:24 AM EDT POTASSIUM Routine 02/24/2024 4:42 AM EDT SCAN DOC: TELEMETRY STRIPS 02/23/2024 8:52 PM EDT SCAN DOC: TELEMETRY STRIPS 02/23/2024 1:33 PM EDT SCAN DOC: TELEMETRY STRIPS 02/23/2024 1:33 PM EDT SCAN DOC: TELEMETRY STRIPS 02/23/2024 11:45 AM EDT BASIC METABOLIC PANEL Routine 02/23/2024 4:24 AM EDT SCAN DOC: TELEMETRY STRIPS 02/22/2024 8:48 PM EDT SCAN DOC: TELEMETRY STRIPS 02/22/2024 1:22 PM EDT SCAN DOC: TELEMETRY STRIPS 02/22/2024 10:57 AM EDT SCAN DOC: TELEMETRY STRIPS 02/22/2024 8:44 AM EDT SCAN DOC: TELEMETRY STRIPS 02/22/2024 8:38 AM EDT SCAN DOC: TELEMETRY STRIPS 02/22/2024 6:05 AM EDT POTASSIUM Routine 02/22/2024 4:30 AM EDT SCAN DOC: TELEMETRY STRIPS 02/21/2024 8:21 PM EDT SCAN DOC: TELEMETRY STRIPS 02/21/2024 3:08 PM EDT SCAN DOC: TELEMETRY STRIPS 02/21/2024 10:00 AM EDT BASIC METABOLIC PANEL Routine 02/21/2024 9:45 AM EDT LACTATE, WHOLE BLOOD Routine 02/21/2024 9:45 AM EDT HEPATIC FUNCTION PANEL Routine 9:45 AM EDT LIPASE Routine 02/21/2024 9:45 AM EDT AMYLASE Routine 02/21/2024 9:45 AM EDT SCAN DOC: TELEMETRY STRIPS 02/21/2024 7:17 AM EDT POTASSIUM Routine 02/21/2024 3:08 AM EDT SCAN [...] EDT HEMOGRAM Routine 02/20/2024 4:23 AM EDT CBC (WITH DIFF) Routine 02/20/2024 4:23 AM EDT BASIC METABOLIC PANEL Routine 02/20/2024 4:23 AM EDT SCAN DOC: TELEMETRY STRIPS 02/19/2024 7:51 PM EDT SCAN DOC: TELEMETRY STRIPS 02/19/2024 6:53 PM EDT SCAN DOC: TELEMETRY STRIPS 02/19/2024 12:01 PM EDT SCAN DOC: TELEMETRY STRIPS 02/19/2024 11:22 AM EDT SCAN DOC: TELEMETRY STRIPS 02/19/2024 11:17 AM EDT SCAN DOC: TELEMETRY STRIPS 02/19/2024 7:58 AM EDT SCAN DOC: TELEMETRY STRIPS 02/19/2024 7:28 AM EDT POTASSIUM Routine 02/19/2024 3:57 AM EDT SCAN [...] 02/18/2024 1:40 AM EDT BASIC METABOLIC PANEL Routine 02/18/2024 1:40 AM EDT CBC (WITH DIFF) Routine 02/18/2024 1:40 AM EDT HC TROPONIN T Timed 02/18/2024 1:40 AM EDT POCT GLUCOSE Routine 02/17/2024 8:13 PM EDT POCT GLUCOSE Routine 02/17/2024 5:42 PM EDT HEMOGLOBIN Routine 02/17/2024 5:42 PM EDT POTASSIUM Routine 02/17/2024 5:42 PM EDT EXTUBATE Routine 02/17/2024 4:28 PM EDT BLOOD GAS ARTERIAL POC Routine 4 4:18 PM EDT XR CHEST ONE VIEW STAT 02/17/2024 1:4 4 PM EDT BLOOD GAS ARTERIAL POC Routine 4 1:31 PM EDT EKG 12-LEAD Routine 02/17/2024 1:24 PM EDT COOX, POC Routine 02/17/2024 1:21 PM EDT BLOOD GAS ARTERIAL POC Routine 12:14 PM EDT FIBRINOGEN STAT 02/17/2024 12:10 PM EDT THROMBIN TIME STAT 02/17/2024 12:10 PM EDT HC PARTIAL THROMBOPLASTIN TIME STAT 02/17/2024 12:10 PM EDT PROTHROMBIN TIME STAT 02/17/2024 12:1 0 PM EDT HEMOGRAM STAT 02/17/2024 12:10 PM EDT BLOOD GAS ARTERIAL POC Routine 11:43 AM EDT BLOOD GAS ARTERIAL POC Routine 11:08 AM EDT HEMOGLOBIN AND HEMATOCRIT, BLOOD STAT 02/17/2024 11:04 AM EDT HC PLATELET COUNT STAT 02/17/2024 11: 04 AM EDT FIBRINOGEN STAT 02/17/2024 11:04 AM EDT BLOOD GAS ARTERIAL POC Routine 4 10:41 AM EDT BLOOD GAS ARTERIAL POC Routine 4 10:06 AM EDT SURGICAL PATHOLOGY REPORT Routine 02/17/2024 10:01 AM EDT SPECIMEN TO PATHOLOGY Routine 02/17/2024 10:01 AM EDT BLOOD GAS ARTERIAL POC Routine 9:35 AM EDT BLOOD GAS VENOUS POC Routine 02/17/2024 9:34 AM EDT BLOOD GAS ARTERIAL POC Routine 8:07 AM EDT Replacement Prosthetic Aortic Valve Open W Cardiopulmonary Bypass Homogrf/Stent ([id number]) Yes 02/17/2024 7:28 AM EDT CAD Cabg, Artery-Vein, Two ([id number]) Yes 02/17/2024 7:28 AM EDT CAD Cabg, Arterial, Single ([id number]) Yes 02/17/2024 7:28 AM EDT CAD Endoscopy W/Video-Asst Vein [place], Cabg ([id number]) Yes 02/17/2024 7:28 AM EDT CAD POCT [...] (Bezet) 401 ms MUSE SYSTEM Calculated P Ell[place] -12 degrees MUSE SYSTEM Calculated R [place] 24 degrees MUSE SYSTEM Calculated T [place] 74 degrees MUSE SYSTEM INTERPRETATION Sinus bradycardia T wave abnormality, consider anterior ischemia Abnormal ECG When compared with ECG of 17-FEB-2024 13:24, MN interval has decreased T wave inversion now evident in Anterior leads Confirmed by Paul Guzman ([id number]) on 03/15/2024 8:36:23 AM MUSE SYSTEM 03/12/2024 2:35 PM EDT 03/15/2024 8:36 AM EDT Zak Farmer MD ECG ORDERABLES MUSE SYSTEM * XR Chest PA & Lateral (Generic) (03/12/2024 1:42 PM EDT) Only the most recent of2 resultswithin the time period is included. Pathologist [facility] WORKSTATION ID [id number] RAD Anatomical Region Laterality Modality Chest N/A [...] who have questions please contact the health vehicle care specialist that requested your imaging first. ? 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 Electronically signed by: Augie Sanchez MD, [facility]([phone]), at 03/13/2024 8:28 AM Zak Farmer MD [...] included. Potassium 4.0 3.5 - 5.0 mmol/L [facility] Comment: Please note: ??Patients with WBC >100,000 may have falsely elevated Potassium levels. ??For accurate Potassium quantification in these patients send serum separator tube (gold top) for subsequent determinations. ??Contact the Clinical Chemistry Laboratory if there are any questions. Blood 02/24/2024 4:42 AM EDT 02/24/2024 4:59 AM EDT Narrative Resulting Agency Comment Spec In Lab Zak Farmer MD CHEMISTRY ORDERABLE S [facility] [place] [address] * (ABNORMAL) Basic Metabolic Panel (non-fasting) (02/23/2024 4:24 AM EDT) Only the most recent of4 resultswithin the time period is included. Glucose 117 65 - 199 mg/dL [facility] Comment:Diabetes: >=200 mg/d L plus symptoms Blood Urea Nitrogen 18 10 - 20 mg/dL [facility] Creatinine 0.71(L) 0.80 - 1.50 mg/dL [facility] Sodium 138 135 - 145 mmol/L [facility] Potassium 4.4 3.5 - 5.0 mmol/L [facility] Comment: Please note: ??Patients with WBC >100,000 may have falsely elevated Potassium levels. ??For accurate Potassium quantification in these patients send serum separator tube (gold top) for subsequent determinations. ??Contact the Clinical Chemistry Laboratory if there are any questions. Chloride 101 98 - 107 mmol/L [facility] Carbon Dioxide 26 22 - 31 mmol/L [facility] Anion Gap 11 5 - 15 mmol/L [facility] Calcium 8.8 8.5 - 10.5 mg/dL [facility] Est Glomerular Filtration Rate 102 >=60 mL/min/1. 73 m?? [facility] Comment: This patient's estimated GFR [...] Narrative Resulting Agency Comment Spec In Lab Rmoeo Carpio MD CHEMISTRY ORDERABLES [facility] [place] [address] * Lactate, whole blood, send to lab ([facility]) (02/21/2024 9:45 AM EDT) Lactate WB 2.0 0.5 - 2.2 mmol/L [facility] Blood 02/21/2024 9:45 AM EDT 02/21/2024 9:52 AM EDT Narrative Resulting Agency Comment Spec In Lab Zak Farmer MD CHEMISTRY ORDERABLE S [facility] [place] [address] * Lipase (02/21/2024 9:45 AM EDT) Lipase 56 0 - 60 unit/L [facility] Blood 02/21/2024 9:45 AM EDT 02/21/2024 9:52 AM EDT Narrative Resulting Agency Comment Spec In Lab Zak Farmer MD CHEMISTRY ORDERABLE S [facility] [place] [address] * Amylase (02/21/2024 9:45 AM EDT) Pathologist [facility] Amylase 69 28 - 100 unit/L [facility] Blood 02/21/2024 9:45 AM EDT 02/21/2024 9:52 AM EDT Narrative Resulting Agency Comment Spec In Lab Zak Farmer MD CHEMISTRY ORDERABLE S Performing Organization Address [facility]/ZIP Co de Phone Number [facility] [place] [address] * (ABNORMAL) Hepatic Function Panel (02/21/2024 9:45 AM EDT) Protein, Total 5.7(L) 6.1 - 8.0 g/dL [facility] Albumin 3.3 3.2 - 5.2 g/dL [facility] Aspartate Aminotransferase 13 0 - 39 unit/L [facility] Alanine Aminotransferase 16 0 - 55 unit/L [facility] Alkaline Phosphatase 63 40 - 130 unit/L [facility] Bilirubin, Total 0.6 0.2 - 1.3 mg/dL [facility] Bilirubin, Direct 0.2 0.0 - 0.3 mg/dL [facility] Blood 02/21/2024 9:45 AM EDT 02/21/2024 9:52 AM EDT Narrative Resulting Agency Comment Spec In Lab Zak Farmer MD CHEMISTRY ORDERABLE S Performing Organization Address City/[facility]/ZIP Co de Phone Number [facility] [place] [address] * Scan, Peripheral Blood (02/20/2024 4:23 AM EDT) Only the most recent of2 resultswithin the time period is included. Plat estimate Decreased [facility] RBC Morphology Normal [facility] Blood 02/20/2024 4:23 AM EDT 02/20/2024 4:42 AM EDT Narrative Resulting Agency Comment Spec In Lab Minnie FRENCH HEMATOLOGY ECCILIO ALEMAN [facility] [place] [address] * (ABNORMAL) Hemogram (02/20/2024 4:23 AM EDT) Only the most recent of3 resultswithin the time period is included. [facility] White Blood Cell 12.7(H) 4.0 - 9.5 x10(3)/mc L [facility] Red Blood Cell 4.26(L) 4.58 - 5.54 x10(6)/mc L [facility] Hemoglobin 12.3(L) 13.7 - 16.5 g/dL [facility] Hematocrit 37.1(L) 40.5 - 48.5 % [facility] Mean Cell Volume 87.1 82.9 - 93.1 fL [facility] Mean Cell Hemoglobin 28.9 27.5 - 32.1 pg [facility] Mean Cell Hemoglobin Concentration 33.2 32.0 - 35.7 g/dL [facility] Platelet 88(L) 145 - 357 x10(3)/mc L [facility] RDW Standard Deviation 43.5 36.0 - 45.0 [facility] RDW coefficient of variation 13.7 11.4 - 13.8 % [facility] Mean Platelet Volume 10.2 7.6 - 12.9 [facility] NRBC% auto 0.0 % [facility] NRBC Absolute 0.000 0.000 - 0.000 x10(3)/ L [facility] Blood 02/20/2024 4:23 AM EDT 02/20/2024 4:42 AM EDT Narrative Resulting Agency Comment Spec In Lab Minnie FRENCH HEMATOLOGY CECILIO ALEMAN [facility] [place] [address] * (ABNORMAL) Differential, Automated (02/20/2024 4:23 AM EDT) Only the most recent of2 resultswithin the time period is included. Neutrophil % 81.7 % [facility] Neutrophil Absolute 10.37(H) 1.70 - 6.10 x10(3)/mc L [facility] Lymph % 7.4 % [facility] Lymphocytes Abs 0.9 0.9 - 3.2 x10(3)/ L [facility] Monocyte % 9.7 % [facility] Monocyte Abs 1.2(H) 0.3 - 0.9 x10(3)/ L [facility] Eos % 0.1 % [facility] Eosinophils Abs 0.0 0.0 - 0.4 x10(3)/ L [facility] Basophil % 0.2 % [facility] Baso Absolute 0.0 0.0 - 0.1 x10(3)/mc L [facility] Immature Gran % 0.90 % [facility] Comment: Immature granulocytes(IG's)percentage and absolute count will include metamyelocytes, myelocytes, and promyelocytes. Blood smears from CBCs yielding IG's will be scanned manually for concordance. If this scan disagrees with the automated IG or if promyelocytes are noted, a manual differential will be performed. Immature Gran Absolute 0.12(H) 0.00 - 0.04 x10(3)/ L [facility] Blood 02/20/2024 4:23 AM EDT 02/20/2024 4:42 AM EDT Narrative Resulting Agency Comment Spec In Lab Minnie FRENCH HEMATOLOGY CECILIO ALEMAN Performing Organization Address City/[facility]/ZIP Co de Phone Number [facility] [place] [address] * POCT Glucose (02/18/2024 8:24 AM EDT) Only the most recent of4 resultswithin the time period is included. Glucose, POC 157 65 - 199 mg/dL [facility] Comment: Supplemental ranges: <140 mg/dL before meals <180 mg/dL all other times of the day Blood 02/18/2024 8:24 AM EDT 02/18/2024 8:24 AM EDT Zak Farmer MD POINT OF CARE TEST ORDERABLES Performing Organization Address City/[facility]/ZIP Co de Phone Number [facility] [place] [address] * (ABNORMAL) Troponin (02/18/2024 1:40 AM EDT) [facility] Troponin-T, High Sensitivity 342(H) <=22 ng/L [facility] Comment: This patient's troponin T [...] troponin value can be found in the [facility] Test Catalog Troponin - [facility] Test Catalog Reference: Fourth [place] Definition of Myocardial Infarction. Journal of the [place] [employer] 2018;72:4973-2116 Blood 02/18/2024 1:40 AM EDT 02/18/2024 1:56 AM EDT Narrative Resulting Agency Comment Spec In Lab Zak Farmer MD CHEMISTRY ORDERABLE S Performing Organization Address City/[facility]/ZIP Co de Phone Number [facility] [place] [address] * Hemoglobin (02/17/2024 5:42 PM EDT) Hemoglobin 13.7 13.7 - 16.5 g/dL [facility] Blood 02/17/2024 5:42 PM EDT 02/17/2024 6:10 PM EDT Narrative Resulting Agency Comment Spec In Lab Zak Farmer MD HEMATOLOGY ORDERABL ES Performing Organization Address City/[facility]/ZIP Co de Phone Number [facility] [place] [address] * (ABNORMAL) BLOOD GAS 2 ARTERIAL (02/17/2024 4:18 PM EDT) Only the most recent of9 resultswithin the time period is included. pH, Arterial 7.34(L) 7.35 - 7.45 [facility] PCO2, Arterial 40 35 - 45 mmHg [facility] PO2, Arterial 78(L) 85 - 104 mmHg [facility] Bicarbonate, Arterial 20.8 20.0 - 26.0 mmol/L [facility] Base Excess, Arterial -5.1(L) -3.0 - 3.0 mmol/L [facility] Hgb Blood Gas 14.6 13.7 - 16.5 g/dL [facility] Oxyhemoglobin, Arterial 93.0(L) 94.0 - 97.0 % [facility] Carboxyhemoglob in, Arterial 0.3 % [facility] Comment: Nonsmokers: 0.5-1.5% COHB Smokers: Variable, but usually less than 10% Toxic: 20-30% COHB Lethal: Greater than 60% COHB Methemoglobin, Arterial 0.8 <=1.5 % [facility] Na Whole Blood 136 135 - 145 mmol/L [facility] K Whole Blood 4.1 3.5 - 5.0 mmol/L [facility] Comment: Please note: Patients with WBC >100,000 may have falsely elevated Potassium levels. Contact the Clinical Chemistry Laboratory if there are any questions. ICa Whole Blood 1.10(L) 1.15 - 1.33 mmol/L [facility] Comment: Note: ??Total bilirubin higher than 20 mg/dL may lead to falsely low ionized calcium. CL Whole Blood 105 98 - 107 mmol/L [facility] Gluc Whole Bld 159 65 - 199 mg/dL [facility] Comment:Diabetes: >=200 mg/d L plus symptoms. Lactate WB 1.2 0.5 - 2.2 mmol/L [facility] FIO2 Art 40 % [facility] PF Ratio Art 195 [facility] Blood 02/17/2024 4:18 PM EDT 02/17/2024 4:18 PM EDT Zak Farmer MD POINT OF CARE TEST ORDERABLES [facility] [place] [address] * XR Chest One View (02/17/2024 1:44 PM EDT) Pathologist [facility] WORKSTATION ID [id number] RAD Anatomical Region Laterality Modality Chest N/A Digital Radiogra phy Impressions 02/17/2024 2:12 PM EDT 1. ??No definite pleural fluid collection or pneumothorax. 2. ??Right IJ Carlin-Kaila catheter tip terminates in a descending branch of the right pulmonary artery. Suggest catheter retraction. 3. ??Additional support lines and tubes as above. Thank you for letting us participate in the care of this patient. ??If you are a health care provider and have any questions regarding this report, please contact the number below. ??For patients who have questions please contact the health vehicle care specialist that requested your imaging first. ? Electronically signed by: Denzel Hankins MD, [facility] ??([phone]), at 02/17/2024 2:12 PM Narrative 02/17/2024 2:12 PM EDT EXAMINATION: XR CHEST ONE VIEW CLINICAL HISTORY: s/p avr/cabg eval effusions TECHNIQUE: 1 view of the chest COMPARISON: Chest x-ray 01/09/2024, chest CT 02/03/2024 FINDINGS: ET tube tip terminates 5.2 cm above the carlos. Right IJ Carlin-Kaila catheter tip terminates in a descending branch [...] 5.2 cm above the carlos. Right IJ Carlin-Ganzcatheter tip terminates in a descending branch of [...] fluid collection or pneumothorax. 2. Right IJ Carlin-Kaila catheter tip terminates in a descending branch ofthe right pulmonary artery. Suggest catheter retraction. 3. Additional support lines and tubes as above. Thank you for letting us participate in the care of this patient. If youare a health care provider and have any questions regarding this report,please contact the number below. For patients who have questions please contactthe health vehicle care specialist that requested your imaging first. Electronically signed by: Denzel Hankins MD, [facility]([phone]), at 02/17/2024 2:12 PM Zak Farmer MD IMG DX ORDERABLES * (ABNORMAL) Coox2 (02/17/2024 1:21 PM EDT) pO2, Coox 44 mmHg [facility] Hgb Blood Gas 13.1(L) 13.7 - 16.5 g/dL [facility] Oxyhemoglobin, Coox 76.4 % [facility] Carboxyhemoglo bin, Coox 0.3 % [facility] Comment: Nonsmokers: 0.5-1.5% COHB Smokers: Variable, but usually less than 10% Toxic: 20-30% COHB Lethal: Greater than 60% COHB Methemoglobin, Coox 0.8 <=1.5 % [facility] Source Coox Mixed Venous [facility] Blood 02/17/2024 1:21 PM EDT 02/17/2024 1:21 PM EDT Zak Farmer MD POINT OF CARE TEST ORDERABLES Performing Organization Address [facility] de Phone Number [facility] [place] [address] * APTT (02/17/2024 12:10 PM EDT) Partial Thromboplastin Time 33 25 - 37 sec [facility] Comment: OR Result called by [...] MD HEMATOLOGY ORDERABLE S Performing Organization Address [facility] de Phone Number [facility] [place] [address] * (ABNORMAL) Thrombin time (02/17/2024 12:10 PM EDT) Thrombin Time 18(H) 10 - 17 sec [facility] Comment: OR Result called by [...] MD HEMATOLOGY ORDERABLE S Performing Organization Address [facility] Co de Phone Number [facility] [place] [address] * (ABNORMAL) Prothrombin Time (02/17/2024 12:10 PM EDT) Prothrombin Time 16.7(H) 9.4 - 12.5 sec [facility] Comment: OR Result called by ?? LOMARL OR Results read back by: ? alondra pagan at 2024-02-17 12:41:48 International Normalization Ratio 1.5 [facility] Comment: OR Result called by [...] MD HEMATOLOGY ORDERABLE S Performing Organization Address [facility] de Phone Number [facility] [place] [address] * (ABNORMAL) Fibrinogen (02/17/2024 12:10 PM EDT) Only the most recent of2 resultswithin the time period is included. Fibrinogen 154(L) 200 - 393 mg/dL [facility] Comment: OR Result called by ?? LOMARL OR Results read back by: ? alondra pagan at 2024-02-17 12:41:48 A fibrinogen level >100 mg/dL is adequate for hemostasis in most patients without underlying bleeding disorders. Blood 02/17/2024 12:1 0 PM EDT 02/17/2024 12:19 PM EDT Narrative Resulting Agency Comment Spec In Lab Tara York MD HEMATOLOGY ORDERABLE S Performing Organization Address [facility] Co de Phone Number [facility] [place] [address] * (ABNORMAL) Hemoglobin and Hematocrit, blood (02/17/2024 11:04 AM EDT) Hemoglobin 9.6(L) 13.7 - 16.5 g/dL [facility] Hematocrit 28.0(L) 40.5 - 48.5 % [facility] Comment: This result has been called to ALONDRA PAGAN by Eddie López on 02 17 2024 at 1120, and has been read back. Blood 02/17/2024 11:0 4 AM EDT 02/17/2024 11:12 AM EDT Narrative Resulting Agency Comment Spec In Lab Zak Farmer MD HEMATOLOGY ORDERABL ES Performing Organization Address [facility] Co de Phone Number [facility] [place] [address] * (ABNORMAL) Platelet count (02/17/2024 11:04 AM EDT) Platelet 106(L) 145 - 357 x10(3)/mc L [facility] Immature Plt % 1.6 0.0 - 7.4 % [facility] Comment: Limitation of the Immature Platelet Fraction (IPF)-May be less reliable when the platelet count is less than 10t999/uL due to statistical imprecision. The IPF value [...] in a decreased state of production. References: [employer] The Clinical Value of the Immature Platelet Fraction (IPF) in Cell Recovery Document Number 10-1143 03/2011 [employer] The Role of the Immature Platelet Fraction (IPF) in the Differential Diagnosis of Thrombocytopenia, Document MKT-[id number] V002/15/14 P002/17 Blood 02/17/2024 11:0 4 AM EDT 02/17/2024 11:12 AM EDT Narrative Resulting Agency Comment Spec In Lab Zak Farmer MD HEMATOLOGY ORDERABL ES [facility] [place] [address] * Surgical Pathology Report (02/17/2024 10:01 AM EDT) Final Diagnosis [id number] ? Location: [facility]; [facility]; The signing pathologist has (i) examined the relevant preparation(s) for the specimen(s) and (ii) rendered or confirmed the diagnosis(es). . ?Surgical Pathology DIAGNOSIS Aortic valve leaflets, excision: Valve leaflets with myxoid degeneration, nodular fibrosis and dystrophic calcifications. Electronically signed by: ?Livier Montoya MD Verified: ??02/24/2024 13:49 ??Pathologist Performed at: ??-[facility] Dept. of Pathology, [place] [address] Fire Engineer: Job Brewer MD, FCAP, ??CLIA Certificate: [id number] SPECIMEN(S) SUBMITTED A - Aortic Valve Leaflets, [...] Sections Processing Blocks submitted for decalcification: A1. Dry Cleaner Presser sections in 1 cassette labeled A1. ??ajw 02/24/2024 1:49 PM EDT [facility] AORTIC STRUCTURE / Unknown 02/17/2024 10:01 AM EDT 02/17/2024 10:01 AM EDT Zak Farmer MD PATHOLOGY/CYTOLOGY ORDERABLES Performing Organization Address City/[facility]/ZIP Co de Phone Number [facility] [place] [address] * Specimen to Pathology (02/17/2024 10:01 AM EDT) AP Specimen 02/17/2024 10:0 1 AM EDT 02/17/2024 10:01 AM EDT Narrative [facility] - 02/17/2024 10:01 AM EDT Specimen requisition ordered. ??Separate Pathology report to follow Zak Farmer MD PATHOLOGY/CYTOLOGY ORDERABLES Performing Organization Address City/[facility]/ZIP Co de Phone Number [facility] [place] [address] * (ABNORMAL) BLOOD GAS 2 VENOUS (02/17/2024 9:34 AM EDT) pH, Venous 7.22(Criti marquez) 7.32 - 7.42 [facility] Comment:Noted by electrical instrument repairer. PCO2, Venous 43 41 - 51 mmHg [facility] Comment:Noted by electrical instrument repairer. PO2, Venous 57(H) 25 - 40 mmHg [facility] Comment:Noted by electrical instrument repairer. Bicarbonate, Venous 17.1 mmol/L [facility] Comment:Noted by electrical instrument repairer. Base Excess, Venous -10.6 mmol/L [facility] Comment:Noted by electrical instrument repairer. Hgb Blood Gas 11.2(L) 13.7 - 16.5 g/dL [facility] Comment:Noted by electrical instrument repairer. Oxyhemoglobin, Venous 86.5 % [facility] Comment:Noted by electrical instrument repairer. Carboxyhemoglob in, Venous 0.3 % [facility] Comment: Noted by electrical instrument repairer. Nonsmokers: 0.5-1.5% COHB Smokers: Variable, but usually less than 10% Toxic: 20-30% COHB Lethal: Greater than 60% COHB Methemoglobin, Venous 0.0 <=1.5 % [facility] Comment:Noted by electrical instrument repairer. Na Whole Blood 156(H) 135 - 145 mmol/L [facility] Comment:Noted by electrical instrument repairer. K Whole Blood 5.5(H) 3.5 - 5.0 mmol/L [facility] Comment: Noted by electrical instrument repairer. Please note: Patients with WBC >100,000 may have falsely elevated Potassium levels. Contact the Clinical Chemistry Laboratory if there are any questions. ICa Whole Blood 1.03(L) 1.15 - 1.33 mmol/L [facility] Comment: Noted by electrical instrument repairer. Note: ??Total bilirubin higher than 20 mg/dL may lead to falsely low ionized calcium. CL Whole Blood 100 98 - 107 mmol/L [facility] Comment:Noted by electrical instrument repairer. Gluc Whole Bld 132 65 - 199 mg/dL [facility] Comment: Noted by electrical instrument repairer. Diabetes: >=200 mg/dL plus symptoms Lactate WB 1.0 0.5 - 2.2 mmol/L [facility] Comment:Noted by electrical instrument repairer. Blood Gas Source Venous [facility] Blood 02/17/2024 9:34 AM EDT 02/17/2024 9:34 AM EDT Zak Farmer MD POINT OF CARE TEST ORDERABLES [facility] [address] * Transesophageal Echo/OR (02/17/2024 6:33 AM EDT) Anatomical Region Laterality Modality Cardiac Other 02/17/2024 6:33 AM EDT Narrative 02/17/2024 4:08 PM EDT ? Version: 1 Name: RADHA KARLOS ?Study Date: 02/17/2024, 6: 33 AM ?Patient [...] [facility] [...] Status decision made by: Patient Care Teams Mechanical Maintenance Worker Relationship Specialty Start Date End Date Aparna Jordan APRN PCP - General Family Medicine 10/21/23
--- OUTSIDE RECORDS SUMMARY | 2024-05-11 08:12 | XMS_ITS | Referral Summary ---
Author Organization [facility] Address [address] [place] [address] Care Team Providers Care Quarter Seamer Name Role Phone Filidayna Vanessa Sherman NP Primary Care Provider [phone] Social History Tobacco Use Types Packs/Day Years Used Date Smoking Tobacco: Never Assessed Sex and Gender Information Value Date Recorded Sex Assigned at Not on file Gender Identity Not on file Sexual Orientation Not on file Plan of Treatment Not on file Care Teams Quarter Seamer Relationship Specialty Start Date End Date Vanessa Christian NP [address] [place] [address] PCP - General Family Medicine - Primary Care 10/07/23
--- OUTSIDE RECORDS SUMMARY | 2024-05-11 08:12 | XMS_ITS | Encounter Summary ---
Author Organization [facility] Address [facility] [place] [address] Care Team Providers Care Surveyor Mine Name Role Phone Gino Vanessa Lane DOTSON Primary Care Provider [phone] Encounter Details Date Type Department Care Team (Late st Contact Info) Description 02/24/2024 Orders Only Cardiac Surgery [facility] [place] [phone] Trudi Lester APRN [facility] [place] [address] Social History Tobacco Use Types Packs/Day Years Used Date Smoking Tobacco: Former Cigarettes Smokeless Tobacco: Never Comments:Quit 15 + years ago Alcohol Use Standard Drinks/Week Comments Yes 0 (1 standard drink = 0.6 oz pur e alcohol) rare [facility] Utilities Answer Date Recorded In the past 12 months has e Shortlist, gas, oil, or water [employer] threatened to shut off services in your [...] AM EDT Office Visit Cardiology at [address] [place] [address] Neftali Ernandez MD [facility] [place] [address] documented as of this encounter Visit Diagnoses Not on filedocumented in this encounter Care Teams Surveyor Mine Relationship Specialty Start Date End Date Vanessa Christian APRN PCP - General Family Medicine 10/21/23 documented as of this encounter
--- OUTSIDE RECORDS SUMMARY | 2024-05-11 08:13 | XMS_ITS | Encounter Summary ---
Author Organization [facility] Address [facility] [address] Care Team Providers Care Outbound Sales Advisor Name Role Phone Vanessa Christian COMMERCIAL INSTRUCTOR SUPERVISOR Primary Care Provider [phone] Reason for Referral * Diagnostic Test (Routine) - Closed Specialty Diagnoses / Procedures Referred By Contac t Referred To Contact Radiology Diagnoses Nonrheumatic aortic valve stenosis Procedures CT Chest wo Contrast (Generic) Louisa Reid PA [facility] [place] [address] [facility] [place] [address] Referral ID Status Reason Start Date Expiration Date V isits Requested Visits Authorized [id number] Closed Specialty Service Requested 01/10/2024 07/11/2025 1 1 Encounter Details Date Type Department Care Team (Late st Contact Info) Description 01/09/2024 Orders [place] [address] Zak Farmer MD [facility] [place] [address] Nonrheumatic aortic valve stenosis Social History Tobacco [...] 11:00 AM EDT Office Visit Cardiology at [address] [place] [address] Neftali Ernandez MD [facility] [place] [place] [address] documented as of this encounter Results * CT Chest wo Contrast (Generic) (02/03/2024 7:44 AM EDT) Friendfer WORKSTATION ID [id number] RAD Anatomical Region Laterality Modality Chest Computed [...] who have questions please contact the health transition of care specialist that requested your imaging first. ? Electronically signed by: Rogerio Wright MD, [facility] ([phone]), at 02/03/2024 10:00 AM Narrative 02/03/2024 10:00 [...] nodule along the minor fissure (series 302 [id number]) and a 8 mm right lower lobe [...] patients who have questions please contactthe health transition of care specialist that requested your imaging first. Electronically signed by: Rogerio Wright MD, [facility]([phone]), at 02/03/2024 10:00 AM Zak Farmer MD IMG CT ORDERABLES documented in this encounter Visit Diagnoses Diagnosis Nonrheumatic aortic valve stenosis Aortic valve disorders Nonrheumatic aortic valve stenosis Aortic valve disorders documented in this encounter Care Teams Outbound Sales Advisor Relationship Specialty Start Date End Date Vanessa Christian APRN PCP - General Family Medicine 10/21/23 documented as of this encounter
--- OUTSIDE RECORDS SUMMARY | 2024-05-11 08:13 | XMS_ITS | Encounter Summary ---
Author Organization [facility] Address [facility] [place] [address] Care Team Providers Care Electroformer Name Role Phone Vanessa Christian MAURI Primary Care Provider [phone] Encounter Details Date Type Department Care Team (Latest Contact Info) Description 01/09/2024 3:02 PM EDT - 01/09/2024 11:59 PM EDT Hospital Encounter XRay at [address] [place] [address] Zak Farmer MD [facility] [place] [address] Nonrheumatic aortic valve stenosis Discharge Disposition: Home Social History Tobacco Use Types Packs/Day Years Used Date Smoking Tobacco: Former Cigarettes Smokeless Tobacco: Never Comments:Quit 15 + years ago Alcohol Use Standard Drinks/Week Comments Yes 0 (1 standard drink = 0.6 oz pur e alcohol) rare [facility] Inpatient Questions Answer Date Recorded Prevent Contact [...] 11:00 AM EDT Office Visit Cardiology at [address] [place] [address] Neftali Ernandez MD [facility] [place] [address] documented as of this encounter Procedures Procedure [...] who have questions please contact the health home child care provider that requested your imaging first. ? Narrative [...] patients who have questions please contactthe health home child care provider that requested your imaging first. Zak Farmer MD IMG DX ORDERABLES documented in this encounter Visit Diagnoses Diagnosis Nonrheumatic aortic valve stenosis Aortic valve disorders documented in this encounter Care Teams Electroformer Relationship Specialty Start Date End Date Vanessa Christian APRN PCP - General Family Medicine 10/21/23 documented as of this encounter
--- OUTSIDE RECORDS SUMMARY | 2024-05-11 08:13 | XMS_ITS | Encounter Summary ---
Author Organization [facility] Address [facility] [place] [address] Care Team Providers Care Delivery Manager Name Role Phone Vanessa Christian APRN Primary Care Provider Encounter Details Date Type [...] AM EDT Office Visit Cardiology at [address] [place] [address] Neftali Ernandez MD [facility] [place] [address] documented as of this encounter Visit Diagnoses Not on filedocumented in this encounter Care Teams Delivery Manager Relationship Specialty Start Date End Date Vanessa Christian APRN PCP - General Family Medicine 10/21/23 documented as of this encounter
--- OUTSIDE RECORDS SUMMARY | 2024-05-11 08:13 | XMS_ITS | Encounter Summary ---
Author Organization [facility] [place] [address] Care Team Providers Care Geriatric Nurse Assistant Name Role Phone Vanessa Christian MAURI Primary Care Provider [phone] Reason for Visit * Auth/Cert (Routine) Specialty [...] ARTERIAL GRAFT (WRVU 7.93) Zak Farmer MD [facility] [place] [address] [facility] Referral ID Status Reason Start Date Expiration Date Visits Re quested Visits Authorized [id number] 1 1 Encounter Details Date Type Department Care Team (Late st Contact Info) Description 02/17/2024 7:35 AM EDT Anesthesia Event Main Operating Room [facility] [place] [phone] Roman York MD [facility] [address] Anesthesia Record Procedure Summary Procedure Name Responsible [...] by Sadiq Woo RN PIV 02/17/24; 0715; gscz-bet-gxyzla catheter system; 18 gauge; cephalic vein (lateral [...] = 0.6 oz pur e alcohol) rare [facility] Utilities Answer Date Recorded In the past 12 months has th e electric, gas, oil, or water [employer] threatened to shut off services in your [...] Procedure Summary Date: 02/17/24 Room / Location: [facility] OR [address] [place] [address] MAIN OR Anesthesia Start: 734 Anesthesia Stop: [...] shown include unfiled device data. Patient Location: [facility] Level of Consciousness: Sedated (Pharmacologic/Intentional) Pain [...] 08/14/2023 ??? Nevus of face 09/26/2023 Right religion No past surgical history on file. Social [...] AM EDT Office Visit Cardiology at [address] [place] [address] Neftali Ernandez MD [facility] [place] [address] documented as of this encounter Visit [...] mg documented in this encounter Care Teams Geriatric Nurse Assistant Relationship Specialty Start Date End Date Vanessa Christian APRN PCP - General Family Medicine 10/21/23 documented as of this encounter
--- OUTSIDE RECORDS SUMMARY | 2024-05-11 08:13 | XMS_ITS | Encounter Summary ---
Author Organization [facility] [place] [address] Care Team Providers Care Intellectual Property Counsel Name Role Phone Vanessa Christian MAURI Primary Care Provider [phone] Reason for Visit * Auth/Cert (Routine) Specialty [...] W RHC (WRVU 5.9) Rima Dickinson MD [facility] [place] [address] [facility] Referral ID Status Reason Start Date Expiration Date Visits Re quested Visits Authorized [id number] 1 1 Encounter Details Date Type Department Care Team (Late st Contact Info) Description 02/03/2024 10:00 AM EDT - 02/03/2024 11:00 AM EDT [place] [address] Saira Lua MD [facility] [place] [address] CARDIAC CATHETERIZATION Social History Tobacco Use Types [...] encounter Discharge Instructions * Patient Instructions* Clarence Lnae MD - 02/03/2024 12:50 PM EDT Restrictions (first 48 Hours) NO Driving Do not lift objects >20 Lbs Restrictions (First 5 days) Do not lift objects >40 lbs Follow-up Visits Follow up with your service station console operator in 2-4 weeks Access Site 'Black and Blue' and tenderness is expected during the first week Call if you noted a mass (lump) greater than the size of a ellis Call Office with any Questions and if you have any of the following Clarence Lane M.D Interventional Sound Truck Operator Tree Doctor #: [phone] * Attachments The following attachments cannot be sent through Care Everywhere. * CAD (Coronary Artery Disease): General Info (Citizen Of [place]) * Coronary Angiogram: Post-op (Citizen Of [place]) documented in this encounter Medications at Time [...] Lane MD - 02/03/2024 11:48 AM EDT [facility] Interventional Cardiology Adult Pre-Procedure H&P Update: Cardiac Catheterization Karlos Anthony [id number] 1960 Chief Complaint: Aortic stenosis HPI: Mr. [...] is inthe chart Clarence Lane MD Interventional Sound Truck Operator 02/03/24 11:48 AM documented in this encounter Miscellaneous Notes * Brief Op Note - Clarence Lane MD - 02/03/2024 12:51 PM EDT Preliminary Cardiac Catheterization Procedure Note: Patient Name: Karlos Anthony : [id number] MR#: [id number] Case Date: 02/03/2024 Tree Doctor: Surgeon(s) and Role: * Saira Lua MD [...] AM EDT Office Visit Cardiology at [address] [phone] Neftali Ernandez MD [facility] [place] [address] Scheduled Orders Name Type Priority Associated Diagnoses [...] Other Narrative 02/12/2024 3:47 PM EDT ?[facility] ? Cardiac Catheterization/Intervention Report ? Patient Name: Patenaude, Karlos ? Procedure Date: 02/03/2024 ? A #: [id number] ? Primary Physician: Saira Lua ? Case #: [id number] ? File Name: [id number] ? Catheterization Order Number: [id number] ? [facility] ? Final Report [place], [place] ? Patient Name: ? Karlos Patenaude ? ID#: ?[id number] ? : ?1960 ? Procedure Date: ? February 03, 2024 ? Case #: ? [id number] ? Room: ? 5 ? Case Physician: [...] Note Saira Lua MD - 02/12/2024 [facility] Cardiac Catheterization/Intervention Report Patient Name: Karlos Anthony Procedure Date: 02/03/2024 A #: [id number] Primary Physician: Saira Lua Case #: [id number] File Name: [id number] Catheterization Order Number: [id number] [facility] FinalReport [place], [place] Patient Name: Karlos Anthony ID#:[id number] :1960 Procedure Date: February 03, 2024 Case [...] designated as ASA Class III. The [facility] clinical frailty scale is 3: Managing [...] (Bezet) 372 ms MUSE SYSTEM Calculated P Evans 59 degrees MUSE SYSTEM Calculated R Evans 34 degrees MUSE SYSTEM Calculated T Evans 63 degrees MUSE SYSTEM INTERPRETATION Sinus bradycardia [...] MD) documented in this encounter Care Teams Intellectual Property Counsel Relationship Specialty Start Date End Date Vanessa Christian, MAURI PCP - General Family Medicine 10/21/23 documented as of this encounter
--- OUTSIDE RECORDS SUMMARY | 2024-05-11 08:13 | XMS_ITS | Encounter Summary ---
Author Organization [facility] Address [facility] [place] [address] Care Team Providers Care Lumber Mover Name Role Phone Vanessa Christian MAURI Primary Care Provider Encounter Details Date Type Department Care Team (Late st Contact Info) Description 02/14/2024 Orders [place] [phone] Zak Farmer MD [facility] [place] [address] Coronary artery disease, unspecified vessel or lesion type, unspecified whether angina present, unspecified whether knik or transplanted heart (Primary Dx) Social History [...] AM EDT Office Visit Cardiology at [address] [place] [phone] Neftali Ernandez MD [facility] [place] [address] documented as of this encounter Results * EKG 12 Lead (03/12/2024 2:35 PM EDT) Ventricular rate 59 BPM MUSE SYSTEM Atrial Rate 59 BPM MUSE SYSTEM P-R Interval 190 ms MUSE SYSTEM QRS Duration 92 ms MUSE SYSTEM Q-T Interval 406 ms MUSE SYSTEM QTC Calculated (Bezet) 401 ms MUSE SYSTEM Calculated P Pierron -12 degrees MUSE SYSTEM Calculated R Pierron 24 degrees MUSE SYSTEM Calculated T Pierron 74 degrees MUSE SYSTEM INTERPRETATION Sinus bradycardia T wave abnormality, consider anterior ischemia Abnormal ECG When compared with ECG of 17-FEB-2024 13:24, MI interval has decreased T wave inversion now evident in Anterior leads Confirmed by Paul Guzman ([id number]) on 03/15/2024 8:36:23 AM MUSE SYSTEM 03/12/2024 2:35 PM EDT 03/15/2024 8:36 AM EDT Zak Farmer MD ECG ORDERABLES MUSE SYSTEM * XR Chest PA & Lateral (Generic) (03/12/2024 1:42 PM EDT) WORKSTATION ID [id number] RAD Anatomical Region Laterality Modality Chest N/A [...] questions please contact the health resident care director that requested your imaging first. ? Narrative 03/13/2024 8:28 AM EDT EXAMINATION: XR CHEST PA AND LATERAL (GENERIC) CLINICAL HISTORY: s/p cabg eval effusions I25.10, Atherosclerotic heart disease of knik coronary artery without angina pectoris TECHNIQUE: PA [...] eval effusions I25.10, Atherosclerotic heart disease of knik coronary artery withoutangina pectoris TECHNIQUE: PA and [...] have questions please contactthe health resident care director that requested your imaging first. Zak Farmer MD IMG DX ORDERABLES documented in this encounter Visit Diagnoses Diagnosis Coronary artery disease, unspecified vessel or lesion type, unspecified whether angina present, unspecified whether knik or transplanted heart- Primary Coronary artery disease, unspecified vessel or lesion type, unspecified whether angina present, unspecified whether knik or transplanted heart documented in this encounter Care Teams Lumber Mover Relationship Specialty Start Date End Date Vanessa Christian APRN PCP - General Family Medicine 10/21/23 documented as of this encounter
--- OUTSIDE RECORDS SUMMARY | 2024-05-11 08:13 | XMS_ITS | Encounter Summary ---
Author Organization [facility] [place] [address] Care Team Providers Care Alley Cleaner Name Role Phone Vanessa Christian MAURI Primary Care Provider [phone] Reason for Visit * Auth/Cert (Routine) Specialty [...] W RHC (WRVU 5.9) Rima Dickinson MD [facility] [place] [address] [facility] Referral ID Status Reason Start Date Expiration Date Visits Re quested Visits Authorized [id number] 1 1 Encounter Details Date Type Department Care Team (Latest Contact Info) Description 02/03/2024 8:06 AM EDT - 02/03/2024 2:54 PM EDT Hospital Encounter [place] [address] Rima Dickinson MD [facility] [place] [address] Screening for cardiovascular condition; Aortic valve stenosis, [...] lbs Follow-up Visits Follow up with your pediatric associate in 2-4 weeks Access Site 'Black and Blue' and tenderness is expected during the first week Call if you noted a mass (lump) greater than the size of a ellis Call Office with any Questions and if you have any of the following Clarence Lane M.D Interventional Horizontal Boring Mill Operator Gyroscopic Instrument Tester #: [phone] * Attachments The following attachments cannot be sent through Care Everywhere. * CAD (Coronary Artery Disease): General Info (Finnish) * Coronary Angiogram: Post-op (Finnish) documented in this encounter Medications at Time [...] Lane MD - 02/03/2024 11:48 AM EDT [facility] Interventional Cardiology Adult Pre-Procedure H&P Update: Cardiac Catheterization Karlos Anthony [id number] 1960 Chief Complaint: Aortic stenosis HPI: Mr. [...] is inthe chart Clarence Lane MD Interventional Horizontal Boring Mill Operator 02/03/24 11:48 AM documented in this encounter Miscellaneous Notes * Brief Op Note - Clarence Lane MD - 02/03/2024 12:51 PM EDT Preliminary Cardiac Catheterization Procedure Note: Patient Name: Karlos Anthony : [id number] MR#: [id number] Case Date: 02/03/2024 Gyroscopic Instrument Tester: Surgeon(s) and Role: * Saira Lua MD [...] 11:00 AM EDT Office Visit Cardiology at [address] [place] [address] Neftali Ernandez MD [facility] [place] [address] Scheduled Orders Name Type Priority Associated Diagnoses [...] Modality Other Narrative 02/12/2024 3:47 PM EDT ?[facility] ? Cardiac Catheterization/Intervention Report ? Patient Name: Karlos Anthony ? Procedure Date: 02/03/2024 ? A #: [id number] ? Primary Physician: Saira Lua ? Case #: [id number] ? File Name: [id number] ? Catheterization Order Number: [id number] ? [facility] ? Final Report [place], [place] ? Patient Name: ? Karlos Patenaude ? ID#: ?[id number] ? : ?1960 ? Procedure Date: ? [...] Procedure Note Saira Lua MD - 02/12/2024 [facility] Cardiac Catheterization/Intervention Report Patient Name: Karlos Anthony Procedure Date: 02/03/2024 A #: [id number] Primary Physician: Saira Lua Case #: [id number] File Name: [id number] Catheterization Order Number: [id number] [facility] FinalReport [place], [place] Patient Name: Karlos Anthony ID#:[id number] :1960 Procedure Date: February 03, 2024 Case [...] was designated as ASA Class III. The [facility] clinical frailty scale is 3: Managing Well. [...] (Bezet) 372 ms MUSE SYSTEM Calculated P [place] 59 degrees MUSE SYSTEM Calculated R [place] 34 degrees MUSE SYSTEM Calculated T [place] 63 degrees MUSE SYSTEM INTERPRETATION Sinus bradycardia [...] MD) documented in this encounter Care Teams Alley Cleaner Relationship Specialty Start Date End Date Vanessa Christian APRN PCP - General Family Medicine 10/21/23 documented as of this encounter
--- OUTSIDE RECORDS SUMMARY | 2024-05-11 08:13 | XMS_ITS | Encounter Summary ---
[place] [address] Care Team Providers Care Quality Control Tech Name Role Phone Vanessa Christian Lane DOTSON Primary Care Provider Reason for Referral * Diagnostic Test (Routine) - Closed Specialty Diagnoses / Procedures Referred By Contac t Referred To Contact Radiology Diagnoses Nonrheumatic aortic valve stenosis Procedures CT Chest wo Contrast (Generic) Louisa Cho PA [facility] DR CARDIOTHORACIC [place] [address] [facility] [place] [address] Referral ID Status Reason Start Date Expiration Date V isits Requested Visits Authorized [id number] Closed Specialty Service Requested 01/10/2024 07/11/2025 1 1 Reason for Visit * Diagnostic Test (Routine) - Closed Specialty Diagnoses / Procedures Referred By Contac t Referred To Contact Radiology Diagnoses Nonrheumatic aortic valve stenosis Procedures CT Chest wo Contrast (Generic) Louisa Cho PA [facility] CARDIOTHORACIC [place] [address] [facility] [place] [address] Referral ID Status Reason Start Date Expiration Date V isits Requested Visits Authorized [id number] Closed Specialty Service Requested 01/10/2024 07/11/2025 1 1 Encounter Details Date Type Department Care Team (Latest Contact Info) Description 02/03/2024 7:36 AM EDT - 02/03/2024 8:05 AM EDT Hospital Encounter CT Scan at [facility] [place] [address] Zak Farmer MD [facility] CARDIOTHORACIC [place] [address] Nonrheumatic aortic valve stenosis Discharge Disposition: Home Social History Tobacco Use Types Packs/Day Years Used Date Smoking Tobacco: Former Cigarettes Smokeless Tobacco: Never Comments:Quit 15 + years ago Alcohol Use Standard Drinks/Week Comments Yes 0 (1 standard drink = 0.6 oz pur e alcohol) rare [facility] Inpatient Questions Answer Date Recorded Does Anyone [...] AM EDT Office Visit Cardiology at [address] [place] [address] Neftali Ernandez MD [facility] [place] [place] [address] documented as of this encounter Procedures Procedure Name Priority Date/Time Associated Diagnosis Comments CT CHEST WO CONTRAST (GENERIC) Routine 02/03/2024 7:44 AM EDT Nonrheumatic aortic valve stenosis documented in this encounter Results * CT Chest wo Contrast (Generic) (02/03/2024 7:44 AM EDT) Responsible City WORKSTATION ID [id number] RAD Anatomical Region Laterality Modality Chest Computed [...] who have questions please contact the health primary care pediatrician that requested your imaging first. ? Electronically signed by: Rogerio Wright MD, [facility] ([phone]), at 02/03/2024 10:00 AM Narrative 02/03/2024 10:00 [...] nodule along the minor fissure (series 302 [id number]) and a 8 mm right lower lobe [...] patients who have questions please contactthe health primary care pediatrician that requested your imaging first. Electronically signed by: Rogerio Wright MD, [facility]([phone]), at 02/03/2024 10:00 AM Zak Farmer MD IMG CT ORDERABLES documented in this encounter Visit Diagnoses Diagnosis Nonrheumatic aortic valve stenosis Aortic valve disorders documented in this encounter Care Teams Quality Control Tech Relationship Specialty Start Date End Date Vanessa Christian APRN PCP - General Family Medicine 10/21/23 documented as of this encounter
--- OUTSIDE RECORDS SUMMARY | 2024-05-11 08:13 | XMS_ITS | Encounter Summary ---
Author Organization [facility] [place] [address] Care Team Providers Care Pool Nurse Name Role Phone Vanessa Christian MAURI Primary Care Provider [phone] Encounter Details Date Type Department Care Team (Late st Contact Info) Description 01/10/2024 [place] [id number] Lawson Napoles PA [facility] [place] [address] Screening for cardiovascular condition; Aortic valve stenosis, [...] 11:00 AM EDT Office Visit Cardiology at [address] [place] [phone] Neftali Ernandez MD [facility] CARDIOLOGY [facility] [place] [address] documented as of this encounter Visit Diagnoses Diagnosis Screening for cardiovascular condition Screening for other and unspecified cardiovascular conditions Aortic valve stenosis, etiology of cardiac valve disease unspecified documented in this encounter Care Teams Pool Nurse Relationship Specialty Start Date End Date Vanessa Christian APRN PCP - General Family Medicine 10/21/23 documented as of this encounter
--- OUTSIDE RECORDS SUMMARY | 2024-05-11 08:13 | XMS_ITS | Encounter Summary ---
[place] [address] Care Team Providers Care Picture Frames Inspector Name Role Phone Aparna Jordan MAURI Primary Care Provider [phone] Reason for Referral * Diagnostic Test (Routine) - New Request Specialty Diagnoses / Procedures Referred By Contac t Referred To Contact Cardiology Diagnoses S/P AVR Procedures Echocardiogram Transthoracic Neftali Menon PA [facility] C[place]IOTH[facility] [place] [address] [facility] [place] [address] Referral ID Status Reason Start Date Expiration Date Visits Requested Visits Authorized [id number] New Request Specialty Service Requested 02/24/2024 02/23/2025 1 1 * Consultation (Routine) - Authorized Specialty Diagnoses / Procedures Referred By Contac t Referred To Contact Cardiology Diagnoses S/P AVR Zak Graham MD [facility] C[place]IOTH[facility]ACIC [place] [address] Cardiac Rehab, [facility] [address] [place] [address] [place] [address] Referral ID Status Reason Start Date Expiration Date Visits Requested Visits Authorized [id number] Authorized Consult, Test & Treat 02/24/2024 08/22/2024 36 36 * Home Health Care (Routine) - Authorized Specialty Diagnoses / Procedures Referred By Sixto mendoza Referred To Contact Diagnoses S/P AVR Zak Graham MD [facility] C[place]IOTH[facility] [place] [address] Referral ID Status Reason Start Date Expiration Date Visits Requested Visits Authorized [id number] Authorized Consult, Test & Treat 02/24/2024 08/22/2024 [...] (WRVU 7.93) Zak Graham MD [facility] C[place]IOTH[facility]ACIC [place] [address] [facility] Referral ID Status Reason Start Date Expiration Date Visits Re quested Visits Authorized [id number] 1 1 Encounter Details Date Type Department Care Team (Latest Contact Info) Description 02/17/2024 5:43 AM EDT - 02/24/2024 11:23 AM EDT Hospital Encounter Heart and Vascular Unit Level 4 [place] [address] Zak Graham MD [facility] C[place]IOTH[facility]AC[facility] [place] [address] S/P AVR (Primary Dx); Aortic valve stenosis, etiology of cardiac valve disease unspecified Discharge Disposition: Home with VNA Social History Tobacco Use Types Packs/Day Years Used Date Smoking Tobacco: Former Cigarettes Smokeless Tobacco: Never Comments:Quit 15 + years ago Alcohol Use Standard Drinks/Week Comments Yes 0 (1 standard drink = 0.6 oz pur e alcohol) rare [facility] Utilities Answer Date Recorded In the [...] Patient Age: 63 y.o. Birthdate: 1960 Language: Latvian Race: White Ethnicity: Not nor Admit Date: 02/17/2024 Discharge Date: 02/24/24 Attending Physician: Zak Graham MD Follow-up Recommendations for Providers: Please continue routine management of cardiovascular risk factors including blood pressure, lipids,glucose, etc. Please note any changes to medications. Patient to follow up with PCP, Aparna Jordan APRN, in 1-2 weeks. Patient to follow up with Clothing Manager, Neftali Ernandez MD , in 2 weeks. Patient to follow up with Cardiac Surgeon, Dr. Zak Graham, with a chest x-ray, EKG, and Echo. 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 Right druze Past Surgical History: Procedure Laterality Date PRO CABG, ARTERIAL, SINGLE N/A 02/17/2024 @CABG, USING ARTERIAL GRAFT;SINGLE ARTERIAL GRAFT (WRVU 33.75) performed by Zak Graham MD at [facility] MAIN OR PRO CABG, ARTERY-VEIN, TWO N/A 02/17/2024 @CABG, TWO VENOUS GRAFTS & ARTERIAL GRAFT (WRVU 7.93) performed by Zak Graham MD at [facility] MAIN OR PRO ENDOSCOPY W/VIDEO-ASST VEIN HARVEST, CABG Left 02/17/2024 ENDOSCOPIC HARVEST VEIN(S) FOR CABG (WRVU 0.31) performed by Zak Graham MD at [facility] MAIN OR PRO REPLACEMENT PROSTHETIC AORTIC VALVE OPEN W CARDIOPULMONARY BYPASS HOMOGRF/STENT N/A 02/17/2024 @REPLACE AORTIC VALVE, OPEN, W\CPB, W\PROSTHETIC VALVE (WRVU 41.32) performed by Zak Graham MD at [facility] MAIN OR Prior To Admission Medications [...] insufficiency. He has glaucoma. He used to [employer] until about 15 years ago. He has undergone prior herniorrhaphy. 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 Major Procedures/Operations: 02/17/24 s/p avr/cabgx3 CABG x 3 JOSE->LAD SVG->dRCA SVG->OM1 EVH from LLE AVR with a 23 mm Inspiris Bioprosthesis Hospital Course: Viraj Garcia was admitted to [facility] on 02/17/2024 via the Same Day [...] Zak Graham and/or the Cardiac Surgery Physician Manager Customer Service Team may be reached at . Antibiotic [...] Please refer to the card with the [place] Heart Association Guidelines for more information. You [...] Dr. Zak Graham. You may use a [place] Track or treadmill but avoid any pulling [...] friends, go to a movie, go to temple, etc. Heavy activities: No hunting, skiing, jogging, [...] should resume a low fat, low cholesterol, Dutch Heart Association Diet. Driving: No driving until [...] while being managed by your PCP and/or Clothing Manager. For future medication refills, please refer to your PCP and/or Clothing Manager after your discharge from our service. Thank you REMOVE CHEST TUBE SUTURES ON OR AFTER 03/02/24 Home oxygen therapy: N/A Follow up appointments: You should follow up with your PCP, Aparna Jordan APRN, in 1-2 weeks. Our office will schedule an appointment with your Clothing Manager, Neftali Ernandez MD , in 2 weeks. You have an appointment with your Cardiac Surgeon, Dr. Zak Graham, 4 weeks with a chest x-ray, EKG, and Echo before your appointment. Cardiac Rehabilitation: Viraj Garcia was seen regarding participation in the outpatient Phase 2Cardiac Rehabilitation at [facility]. The patient agrees to a referral to this program. The referral will be sent at discharge and the patient should be contacted by the Program within 1- 2 weeks from discharge. Future Appointments and Orders Future Orders Complete By Expires Echocardiogram Transthoracic [93706 CPT(R)] 03/26/2024 09/25/2024 Process Instructions: Scheduling Instructions: Questions: Where will study be performed?: [facility] Does the patient have Congenital Heart Disease?: Does patient require sedation?: Sedation rationale: XR Chest PA & Lateral (Generic) [24961 32779 Custom] 03/26/2024 09/25/2024 Process Instructions: Scheduling Instructions: Questions: Portable exam?: Reason for exam and clinical history: s/p avr/cabg Clinical information / jerome questions for radiologist: Stat read required?: Date of injury if applicable: Requested Time: Where will study be performed?: [facility] Radiology Referral to Cardiac Rehab [QXZ908 Custom] As directed Process Instructions: If no progress note charted, please enter Clinical details in comments. Scheduling Instructions: Questions: My question or request is: s/p AVR/CABG. Cardiac rehab at [facility]. Referral to Home Health [REF34 Custom] As directed Process Instructions: If no progress note charted, please enter Clinical details in comments. Scheduling Instructions: Comments: Please evaluate Viraj Garcia for admission to Home Health. [address] Phone Number: Date of : 1960 Inpatient DOCUMENTATION FOR VNA SERVICES (INCLUDING THOSE PATIENTS WITH MEDICARE COVERAGE REQUIRING HOME VNA SERVICES AND/OR HOSPICE SERVICES) PATIENT'S LOCATION: Viraj Garcia [address] [place] [phone] Copyholder's Name: self/family In discussion with the attending physician, it is certified that this patient is under their care and that they, or a Nurse Practitioner, or Physician Manager Customer Service who is working directly with them, hada [...] for services as follows: HOME HEALTH AGENCY: [facility] [address] [place] [address] RN orders: Cardiopulmonary assessment, incisional assessment, assess [...] issues please call the Cardiology Office at [phone] FOR MEDICARE ONLY: (please delete this section [...] APRN [address] / [place] [address] . All VNA agencies which cover the area of patient's residence have been reviewed, either verbally or in writing, and patient/family have chosen the home health care agency noted. Questions: Disciplines Requested: Nursing Physical Therapy Arrangements for VNA/home care: As above. Signed: NEFTALI MENON PA-C [facility] Section of Cardiac Surgery [facility] [address] FAX [phone] Date: 02/24/2024 CC: Aparna Jordan, MAURI Jordan, Aparna Sherman APRN [address] [place] [address] documented in this encounter Discharge Instructions * [...] Zak Graham and/or the Cardiac Surgery Physician Manager Customer Service Team may be reached at . Antibiotic [...] Please refer to the card with the Dutch Heart Association Guidelines for more information. You [...] Dr. Zak Graham. You may use a [place] Track or treadmill but avoid any pulling [...] friends, go to a movie, go to temple, etc. Heavy activities: No hunting, skiing, jogging, [...] should resume a low fat, low cholesterol, Dutch Heart Association Diet. Driving: No driving until [...] while being managed by your PCP and/or Clothing Manager. For future medication refills, please refer to your PCP and/or Clothing Manager after your discharge from our service. Thank you REMOVE CHEST TUBE SUTURES ON OR AFTER 03/02/24 Home oxygen therapy: N/A Follow up appointments: You should follow up with your PCP, Aparna Jordan APRN, in 1-2 weeks. Our office will schedule an appointment with your Clothing Manager, Neftali Ernandez MD , in 2 weeks. You have an appointment with your Cardiac Surgeon, Dr. Zak Graham, 4 weeks with a chest x-ray, EKG, and Echo before your appointment. Cardiac Rehabilitation: Viraj Garcia was seen regarding participation in the outpatient Phase 2Cardiac Rehabilitation at [facility]. The patient agrees to a referral to [...] 0600 and on the weekends please page [phone]. * Eric Barahona PA - 02/23/2024 9:27 [...] 0600 and on the weekends please page [phone]. * Tiffanie Owens - 02/22/2024 2:48 PM [...] Pt reports his dtr is coming from [place] to stay upon d/c for 10 days. 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 * Kelley Hinson PTA - 02/21/2024 10:15 [...] Pt reports his dtr is coming from [place] to stay upon d/c for 10 days. 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 * Kelley Hinson PTA - 02/20/2024 3:32 [...] at that time Kelley Hinson PTA Pager: [phone] Physical Therapy Inpatient Rehab Department * Louisa [...] 0600 and on the weekends please page [phone]. * Chrystal Benavides, PT - 02/19/2024 11:22 [...] Pt reports his dtr is coming from [place] to stay upon d/c for 10 days. 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 Precautions/Special Considerations: STERNAL [...] outlined inthis evaluation. CHRYSTAL BENAVIDES, PT Pager: [phone] Physical Therapy Inpatient Rehabilitation Department Time IN / OUT: 0523-8417 Total Time: 38 (eval) minutes; * Antonio [...] 0600 and on the weekends please page [phone]. * Minnie Begum PA - 02/18/2024 8:25 [...] 0600 and on the weekends please page [phone]. * Kim Ha LOCKER PLANT ATTENDANT - 02/17/2024 2:25 PM EDT Respiratory Care [...] plan since last visit. Zak Graham MD [phone] Source Note - Zak Graham MD - [...] given written informed consent. Zak Graham MD [phone] * Zak Graham MD - 02/17/2024 7:00 [...] given written informed consent. Zak Graham MD [phone] documented in this encounter Miscellaneous Notes * [...] information for follow-up Home Health & Hospice, [address] [place] [address] Cardiac Rehab, [address] [place] [address] Transportation: family or friend will provide Functional status prior to admission: Independent Home Environment: Others in the home: alone. Current Living Arrangements: home/apartment/condo. Accessibility Concerns:a few steps to enter 1 floor home. Current Functional Ability: Assistive Person and Equipment DME used at home: none DME Needed at Discharge: N/A Patient is insured through: Primary Insurance: [facility] Payor: [facility] / Plan: [facility] PPO / Product Type: *No Product [...] managed with scheduled Tylenol. 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 Ambulated in the roque multiple times during [...] anticipated Patient is insured through: Primary Insurance: [facility] Payor: [facility] / Plan: [facility] PPO / Product Type: *No Product type* / Secondary Insurance: N/A Last Physical Therapy Recommendation: home with home health (Str coming to stay for a week or two upon d/c) with to be determined (owns rolling walker, shower seat) Plan for discharge is: Home w/ Services Outpatient Agency/Support Group Needs: Homecare agency Home Health Services: Physical Therapy, Registered Nurse Agency Referrals: [facility] [address] [place] [address] Transportation: family or friend will provide Barriers to discharge: Discharge planning Plan going forward: Service Care Management will continue to follow and assist with discharge planning and coordination of care as indicated. Anticipated Date of Discharge: 02/22/2024 Rhett Bell RN RN/CM - Cellphone: [phone] Pager: [phone] Covering Service RN/CM * Plan of Care [...] Yang RN - 02/19/2024 10:44 AM EDT [facility] CARDIAC REHABILITATION Viraj Garcia was seen today regarding participation in the outpatient Phase 2 Cardiac Rehabilitation at [facility]. 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 (Only good for 180 days) Any patient receiving care in [place] must abide by [place] law. The hierarchy [...] (i) The agent with financial power of deputy prosecuting attorney or a conservator appointed in accordance [...] steady place to sleep or slept in [facility] (including now)?: No In the past 12 months has the electric, gas, oil, or water [employer] threatened to shut off services in your [...] Home Address confirmed as: [address] [facility] [address] Physical address: [address] [facility], [address] Social & Family Supports: All names listed [...] Information: none noted Health/Prescription Coverage: Primary Insurance: [facility] Payor: [facility] / Plan: [facility] PPO / Product Type: *No Product type* / Secondary Insurance: N/A ; Prescription Coverage: Yes Preferred Pharmacy: [id number] [address] Status: Patient is a : No Primary Care Provider confirmed: Aparna Jordan, MAURI [phone] Patient/Caregiver Goals of Treatment: dc to home Potential Needs for Transition of Care: home health care Agency Referrals: I have met with the patient to: discuss discharge planning needs. provide the [facility], Office of Care Management letter from the Tool And Cutter Grinder pertaining to rehab referrals. provide a letter describing our affiliations within the [facility] and educate about their right to choose where referrals are sent. provide a list of Home Health Agencies / Durable Medical Equipment vendors which serve their preferred geographic area. provided patient with [facility] Star Quality Rating handout. They have requested referrals to: [facility] [address] [place] [address] Note routed to a Wood Floor Refinisher who will communicate referrals to facilities and [...] daughter, Cielo, will be coming in from [place] on 02/18, to stay with him , [...] Reina Greene RN CM, BSN, CMGT-BC Ext [phone] * Plan of Care - Binta Trinidad [...] Operative Note Patient Name: Viraj Garcia : [id number] MR#: [id number] Case Date: 02/17/2024 Surgeon: Surgeon(s) and Role: * Zak Graham MD - Primary * Neftali Menon PA - Physician Manager Customer Service Preoperative diagnosis: CAD Postoperative diagnosis: CAD, intraoperative [...] mL Drains: Mediastinal and Left pleural Disposition: [facility] Condition: doing well without problems Attestation: Case Date: 02/17/2024 I performed this procedure without the involvement of a resident. ZAK GRAHAM MD 02/17/2024 * Op Note - Zak Graham MD - 02/17/2024 8:20 AM EDT [facility] Operative Note Patient Name: Viraj Garcia : [id number] MR#: [id number] Case Date: 02/17/2024 Surgeon: Surgeons and Role: * Zak Graham MD - Primary * Neftali Menon PA - Physician Manager Customer Service Preoperative diagnosis: CAD Postoperative diagnosis: CAD, intraoperative [...] 23 mm Inspiris Bioprosthesis Anesthesia: General / Jalyen Findings: CAD, intraoperative EMMA confirmed the presence [...] mL Drains: Mediastinal and Left pleural Disposition: [facility] Procedure Description: The patient was brought to [...] 11:00 AM EDT Office Visit Cardiology at [address] [id number] Neftali Ernandez MD [facility] [place] [address] Scheduled Orders Name Type Priority Associated Diagnoses [...] Procedure Name Priority Date/Time Associated Diagnosis Comments POTASSIUM Routine 02/24/2024 4:42 AM EDT BASIC METABOLIC PANEL Routine 02/23/2024 4:24 AM EDT POTASSIUM Routine 02/22/2024 4:30 AM EDT LACTATE, WHOLE BLOOD Routine 02/21/2024 9:45 AM EDT LIPASE Routine 02/21/2024 9:45 AM EDT AMYLASE Routine 02/21/2024 9:45 AM EDT HEPATIC FUNCTION PANEL Routine 9:45 AM EDT BASIC METABOLIC PANEL Routine 02/21/2024 9:45 AM EDT POTASSIUM Routine 02/21/2024 3:08 AM EDT XR CHEST PA AND LATERAL Routine 02/20/20 10:19 AM EDT SCAN, PERIPHERAL BLOOD Routine 4:23 AM EDT HEMOGRAM Routine 02/20/2024 4:23 AM EDT DIFFERENTIAL, AUTOMATED Routine 02/20/20 4:23 AM EDT CBC (WITH DIFF) Routine 02/20/2024 4:23 AM EDT BASIC METABOLIC PANEL Routine 02/20/2024 4:23 AM EDT POTASSIUM Routine 02/19/2024 3:57 AM EDT POCT GLUCOSE Routine 02/18/2024 8:24 AM EDT HC TROPONIN T Timed 02/18/2024 1:40 AM EDT SCAN, PERIPHERAL BLOOD Routine 1:40 AM EDT HEMOGRAM Routine 02/18/2024 1:40 AM EDT DIFFERENTIAL, AUTOMATED Routine 02/18/20 1:40 AM EDT CBC (WITH DIFF) Routine 02/18/2024 1:40 AM EDT BASIC METABOLIC PANEL Routine 02/18/2024 1:40 AM EDT POCT GLUCOSE Routine 02/17/2024 8:13 PM EDT POCT GLUCOSE Routine 02/17/2024 5:42 PM EDT HEMOGLOBIN Routine 02/17/2024 5:42 PM EDT POTASSIUM Routine 02/17/2024 5:42 PM EDT EXTUBATE Routine 02/17/2024 4:28 PM EDT BLOOD GAS ARTERIAL POC Routine 4:18 PM EDT XR CHEST ONE VIEW STAT 02/17/2024 1:4 4 PM EDT BLOOD GAS ARTERIAL POC Routine 1:31 PM EDT COOX, POC Routine 02/17/2024 1:21 PM EDT BLOOD GAS ARTERIAL POC Routine 12:14 PM EDT HEMOGRAM STAT 02/17/2024 12:10 PM EDT HC PARTIAL THROMBOPLASTIN TIME STAT 02/17/2024 12:10 PM EDT THROMBIN TIME STAT 02/17/2024 12:10 PM EDT PROTHROMBIN TIME STAT 02/17/2024 12:1 0 PM EDT FIBRINOGEN STAT 02/17/2024 12:10 PM EDT BLOOD GAS ARTERIAL POC Routine 11:43 AM EDT BLOOD GAS ARTERIAL POC Routine 11:08 AM EDT HEMOGLOBIN AND HEMATOCRIT, BLOOD STAT 02/17/2024 11:04 AM EDT FIBRINOGEN STAT 02/17/2024 11:04 AM EDT HC PLATELET COUNT STAT 02/17/2024 11: 04 AM EDT BLOOD GAS ARTERIAL POC Routine 10:41 AM EDT BLOOD GAS ARTERIAL POC Routine 10:06 AM EDT SURGICAL PATHOLOGY REPORT Routine 02/17/2024 10:01 AM EDT SPECIMEN TO PATHOLOGY Routine 02/17/2024 10:01 AM EDT BLOOD GAS ARTERIAL POC Routine 9:35 AM EDT BLOOD GAS VENOUS POC Routine 02/17/2024 9:34 AM EDT BLOOD GAS ARTERIAL POC Routine 8:07 AM EDT Replacement Prosthetic Aortic Valve Open W Cardiopulmonary Bypass Homogrf/Stent (90375) Yes 02/17/2024 7:28 AM EDT CAD Cabg, Artery-Vein, Two (21465) Yes 02/17/2024 7:28 AM EDT CAD Cabg, Arterial, Single (88869) Yes 02/17/2024 7:28 AM EDT CAD Endoscopy W/Video-Asst Vein [place], Cabg (02254) Yes 02/17/2024 7:28 AM EDT CAD POCT [...] CHEMISTRY ORDERABLE S [facility] [place] [address] * (ABNORMAL) Basic Metabolic Panel (non-fasting) (02/23/2024 4:24 AM EDT) Glucose 117 65 - 199 mg/dL [facility] Comment:Diabetes: >=200 mg/d L plus symptoms Blood Urea Nitrogen 18 10 - 20 mg/dL [facility] [...] - 107 mmol/L [facility] Carbon Dioxide 26 22 - 31 mmol/L [facility] Anion Gap 11 5 - 15 mmol/L [facility] Calcium 8.8 8.5 - 10.5 mg/dL [facility] Est Glomerular Filtration Rate 102 >=60 mL/min/1. 73 m?? [facility] [...] MD CHEMISTRY ORDERABLES [facility] [place] [address] * Potassium (02/22/2024 4:30 AM EDT) Potassium [...] CHEMISTRY ORDERABLE S [facility] [place] [address] * (ABNORMAL) Basic Metabolic Panel (non-fasting) (02/21/2024 9:45 AM EDT) Glucose 123 65 - 199 mg/dL [facility] Comment:Diabetes: >=200 mg/d L plus symptoms Blood Urea Nitrogen 22(H) 10 - 20 mg/dL [facility] [...] - 107 mmol/L [facility] Carbon Dioxide Not Perf 22 - 31 [facility] Comment:Add-on request. Yolanda le too old to perform test. Anion Gap Unable to Calculate 5 - 15 mmol/L [facility] Calcium 8.6 8.5 - 10.5 mg/dL [facility] Est Glomerular Filtration Rate 100 >=60 mL/min/1 .73 m?? [facility] [...] Carpio MD CHEMISTRY ORDERABLES Performing Organization Address City/[facility]/ZIP Co de Phone Number [facility] [place] [address] * Lactate, whole blood, send to lab ([facility]) (02/21/2024 9:45 AM EDT) [facility] Lactate WB 2.0 0.5 - 2.2 mmol/L [facility] Blood 02/21/2024 9:45 AM EDT 02/21/2024 9:52 AM EDT Narrative Resulting Agency Comment Spec In Lab Zak Graham MD CHEMISTRY ORDERABLE S Performing Organization Address [facility] Co de Phone Number [facility] [place] [address] * (ABNORMAL) Hepatic Function Panel (02/21/2024 9:45 AM EDT) [facility] Protein, Total 5.7(L) 6.1 - 8.0 g/dL [facility] Albumin 3.3 3.2 - 5.2 g/dL [facility] Aspartate Aminotransferase 13 0 - 39 unit/L [facility] Alanine Aminotransferase 16 0 - 55 unit/L [facility] Alkaline Phosphatase 63 40 - 130 unit/L [facility] Bilirubin, Total 0.6 0.2 - 1.3 mg/dL [facility] Bilirubin, Direct 0.2 0.0 - 0.3 mg/dL [facility] Blood 02/21/2024 9:45 AM EDT 02/21/2024 9:52 AM EDT Narrative Resulting Agency Comment Spec In Lab Zak Graham MD CHEMISTRY ORDERABLE S [facility] [place] [address] * Lipase (02/21/2024 9:45 AM EDT) Lipase 56 0 - 60 unit/L [facility] Blood 02/21/2024 9:45 AM EDT 02/21/2024 9:52 AM EDT Narrative Resulting Agency Comment Spec In Lab Zak Graham MD CHEMISTRY ORDERABLE S [facility] [place] [address] * Amylase (02/21/2024 9:45 AM EDT) Amylase 69 28 - 100 unit/L [facility] Blood 02/21/2024 9:45 AM EDT 02/21/2024 9:52 AM EDT Narrative Resulting Agency Comment Spec In Lab Zak Graham MD CHEMISTRY ORDERABLE S Performing Organization Address [facility]/ZIP Co de Phone Number [facility] [place] [address] * Potassium (02/21/2024 3:08 AM EDT) Potassium [...] CHEMISTRY ORDERABLE S [facility] [place] [address] * XR Chest PA & Lateral (Generic) (02/20/2024 10:19 AM EDT) WORKSTATION ID [id number] RAD Anatomical Region Laterality Modality Chest N/A Digital Radiogra phy Impressions 02/20/2024 1:11 PM EDT Small pleural effusions. No pneumothorax Thank you for letting us participate in the care of this patient. ??If you are a health care provider and have any questions regarding this report, please contact the number below. ??For patients who have questions please contact the health child care group leader that requested your imaging first. ? Electronically signed by: Rogerio Cruz MD, [facility] ??([phone]), at 02/20/2024 1:11 PM Narrative 02/20/2024 1:11 PM EDT EXAMINATION: XR CHEST PA AND LATERAL (GENERIC) CLINICAL HISTORY: s/p AVR/CABGx3 TECHNIQUE: PA and lateral views of the chest COMPARISON: 02/17/2024 FINDINGS: Support devices: Interval removal of [place]-Kaila catheter, endotracheal tube and mediastinal chest tubes The cardiac silhouette is stable status post median sternotomy, CABG and aortic valve replacement. There are small pleural effusions. No pneumothorax. Procedure Note Rogerio Cruz MD - 02/20/2024 EXAMINATION: XR CHEST PA AND LATERAL (GENERIC) CLINICAL HISTORY: s/p AVR/CABGx3 TECHNIQUE: PA and lateral views of the chest COMPARISON: 02/17/2024 FINDINGS: Support devices: Interval removal of [place]-Kaila catheter, endotracheal tubeand mediastinal chest tubes The [...] have questions please contactthe health child care group leader that requested your imaging first. Electronically signed by: Rogerio Cruz MD, [facility]([phone]), at 02/20/2024 1:11 PM Zak Graham MD IMG DX ORDERABLES * Scan, Peripheral Blood (02/20/2024 4:23 AM EDT) Pathologist [facility] Plat estimate Decreased [facility] RBC Morphology Normal [facility] Blood 02/20/2024 4:23 AM EDT 02/20/2024 4:42 AM EDT Narrative Resulting Agency Comment Spec In Lab Minnie FRENCH HEMATOLOGY CECILIO ALEMAN [facility] [place] [address] * (ABNORMAL) Differential, Automated (02/20/2024 4:23 AM EDT) [facility] Neutrophil % 81.7 % [facility] Neutrophil Absolute 10.37(H) 1.70 - 6.10 x10(3)/mc L [facility] Lymph % 7.4 % [facility] Lymphocytes Abs 0.9 0.9 - 3.2 x10(3)/mc L [facility] Monocyte % 9.7 % [facility] Monocyte Abs 1.2(H) 0.3 - 0.9 x10(3)/mc L [facility] Eos % 0.1 % [facility] Eosinophils Abs 0.0 0.0 - 0.4 x10(3)/mc L [facility] Basophil % 0.2 % [facility] Baso Absolute 0.0 0.0 - 0.1 x10(3)/mc L [facility] Immature Gran % 0.90 % [facility] Comment: Immature granulocytes(IG's)percentage and absolute count will include metamyelocytes, myelocytes, and promyelocytes. Blood smears from CBCs yielding IG's will be scanned manually for concordance. If this scan disagrees with the automated IG or if promyelocytes are noted, a manual differential will be performed. Immature Gran Absolute 0.12(H) 0.00 - 0.04 x10(3)/ L [facility] Blood 02/20/2024 4:23 AM EDT 02/20/2024 4:42 AM EDT Narrative Resulting Agency Comment Spec In Lab Minnie FRENCH HEMATOLOGY CECILIO ALEMAN [facility] [place] [address] * (ABNORMAL) Hemogram (02/20/2024 4:23 AM EDT) White Blood Cell 12.7(H) 4.0 - 9.5 x10(3)/ L [facility] Red Blood Cell 4.26(L) 4.58 - 5.54 x10(6)/mc L [facility] Hemoglobin 12.3(L) 13.7 - 16.5 g/dL [facility] Hematocrit 37.1(L) 40.5 - 48.5 % [facility] Mean Cell Volume 87.1 82.9 - 93.1 fL [facility] Mean Cell Hemoglobin 28.9 27.5 - 32.1 pg [facility] Mean Cell Hemoglobin Concentration 33.2 32.0 - 35.7 g/dL [facility] Platelet 88(L) 145 - 357 x10(3)/ L [facility] RDW Standard Deviation 43.5 36.0 - 45.0 fL [facility] RDW coefficient of variation 13.7 11.4 - 13.8 % [facility] Mean Platelet Volume 10.2 7.6 - 12.9 fL [facility] NRBC% auto 0.0 % [facility] NRBC Absolute 0.000 0.000 - 0.000 x10(3)/mc L [facility] Blood 02/20/2024 4:23 AM EDT 02/20/2024 4:42 AM EDT Narrative Resulting Agency Comment Spec In Lab Minnie FRENCH HEMATOLOGY ORDE ASH [facility] [place] [address] * (ABNORMAL) Basic Metabolic Panel (non-fasting) (02/20/2024 4:23 AM EDT) Glucose 113 65 - 199 mg/dL [facility] Comment:Diabetes: >=200 mg/d L plus symptoms Blood Urea Nitrogen 20 10 - 20 mg/dL [facility] [...] - 107 mmol/L [facility] Carbon Dioxide 25 22 - 31 mmol/L [facility] Anion Gap 8 5 - 15 mmol/L [facility] Calcium 8.7 8.5 - 10.5 mg/dL [facility] Comment:result rechecked-KS Est Glomerular Filtration Rate 102 >=60 mL/min/1. 73 m?? [facility] [...] MD CHEMISTRY ORDERABLE S Performing Organization Address [facility] Co de Phone Number [facility] [place] [address] * Potassium (02/19/2024 3:57 AM EDT) Potassium [...] MD CHEMISTRY ORDERABLE S Performing Organization Address [facility] Co de Phone Number [facility] [place] [address] * POCT Glucose (02/18/2024 8:24 AM EDT) Glucose, POC 157 65 - 199 mg/dL [facility] Comment: Supplemental ranges: <140 mg/dL before meals <180 mg/dL all other times of the day Blood 02/18/2024 8:24 AM EDT 02/18/2024 8:24 AM EDT Zak Graham MD POINT OF CARE TEST ORDERABLES [facility] [place] [address] * Scan, Peripheral Blood (02/18/2024 1:40 AM EDT) Plat estimate Decreased [facility] RBC Morphology Normal [facility] Blood 02/18/2024 1:40 AM EDT 02/18/2024 1:56 AM EDT Narrative Resulting Agency Comment Spec In Lab Neftali FRENCH HEMATOLOGY ORDER OLE Performing Organization Address City/[facility]/ZIP Co de Phone Number [facility] [place] [address] * (ABNORMAL) Differential, Automated (02/18/2024 1:40 AM EDT) [facility] Neutrophil % 87.1 % [facility] Neutrophil Absolute 15.03(H) 1.70 - 6.10 x10(3)/mc L [facility] Lymph % 3.0 % [facility] Lymphocytes Abs 0.5(L) 0.9 - 3.2 x10(3)/mc L [facility] Monocyte % 9.1 % [facility] Monocyte Abs 1.6(H) 0.3 - 0.9 x10(3)/mc L [facility] Eos % 0.0 % [facility] Eosinophils Abs 0.0 0.0 - 0.4 x10(3)/mc L [facility] Basophil % 0.2 % [facility] Baso Absolute 0.0 0.0 - 0.1 x10(3)/mc L [facility] [...] differential will be performed. Immature Gran Absolute 0.10(H) 0.00 - 0.04 x10(3)/mc L [facility] Blood 02/18/2024 1:40 AM EDT 02/18/2024 1:56 AM EDT Narrative Resulting Agency Comment Spec In Lab Neftali FRENCH HEMATOLOGY ORDER OLE [facility] [place] [address] * (ABNORMAL) Hemogram (02/18/2024 1:40 AM EDT) White Blood Cell 17.2(H) 4.0 - 9.5 x10(3)/mc L [facility] Red Blood Cell 4.71 4.58 - 5.54 x10(6)/mc L [facility] Hemoglobin 13.7 13.7 - 16.5 g/dL [facility] Hematocrit 39.2(L) 40.5 - 48.5 % [facility] Mean Cell Volume 83.2 82.9 - 93.1 fL [facility] Mean Cell Hemoglobin 29.1 27.5 - 32.1 pg [facility] Mean Cell Hemoglobin Concentration 34.9 32.0 - 35.7 g/dL [facility] Platelet 147 145 - 357 x10(3)/mc L [facility] RDW Standard Deviation 39.9 36.0 - 45.0 [facility] RDW coefficient of variation 13.2 11.4 - 13.8 % [facility] Mean Platelet Volume 9.9 7.6 - 12.9 [facility] NRBC% auto 0.0 % [facility] NRBC Absolute 0.000 0.000 - 0.000 x10(3)/mc L [facility] Blood 02/18/2024 1:40 AM EDT 02/18/2024 1:56 AM EDT Narrative Resulting Agency Comment Spec In Lab Neftali FRENCH HEMATOLOGY ORDER OLE [facility] [place] [address] * (ABNORMAL) Basic Metabolic Panel (non-fasting) (02/18/2024 1:40 AM EDT) Glucose 176 65 - 199 mg/dL [facility] Comment:Diabetes: >=200 mg/d L plus symptoms Blood Urea Nitrogen 10 10 - 20 mg/dL [facility] [...] - 107 mmol/L [facility] Carbon Dioxide 20(L) 22 - 31 mmol/L [facility] Anion Gap 9 5 - 15 mmol/L [facility] Calcium 7.6(L) 8.5 - 10.5 mg/dL [facility] Est Glomerular Filtration Rate 105 >=60 mL/min/1. 73 m?? [facility] [...] CHEMISTRY ORDERABLE S [facility] [place] [address] * (ABNORMAL) Troponin (02/18/2024 1:40 AM EDT) Troponin-T, High Sensitivity 342(H) <=22 ng/L [facility] Comment: This patient's troponin T [...] troponin value can be found in the [facility] Laboratory Test Catalog Troponin - [facility] Laboratory Test Catalog Reference: Fourth Ladson Definition of Myocardial Infarction. Journal of the [place] [employer] 2018;72:2571-8562 Blood 02/18/2024 1:40 AM EDT 02/18/2024 1:56 AM EDT Narrative Resulting Agency Comment Spec In Lab Zak Graham MD CHEMISTRY ORDERABLE S Performing Organization Address [facility] Co de Phone Number [facility] [place] [address] * POCT Glucose (02/17/2024 8:13 PM EDT) Glucose, POC 142 65 - 199 mg/dL [facility] Comment: Supplemental ranges: <140 mg/dL before meals <180 mg/dL all other times of the day Blood 02/17/2024 8:13 PM EDT 02/17/2024 8:13 PM EDT Zak Graham MD POINT OF CARE TEST ORDERABLES Performing Organization Address [facility] Co de Phone Number [facility] [place] [address] * POCT Glucose (02/17/2024 5:42 PM EDT) Glucose, POC 160 65 - 199 mg/dL [facility] Comment: Supplemental ranges: <140 mg/dL before meals <180 mg/dL all other times of the day Blood 02/17/2024 5:42 PM EDT 02/17/2024 5:42 PM EDT Zak Graham MD POINT OF CARE TEST ORDERABLES Performing Organization Address [facility] Co de Phone Number [facility] [place] [address] * Hemoglobin (02/17/2024 5:42 PM EDT) Hemoglobin 13.7 13.7 - 16.5 g/dL [facility] Blood 02/17/2024 5:42 PM EDT 02/17/2024 6:10 PM EDT Narrative Resulting Agency Comment Spec In Lab Zak Graham MD HEMATOLOGY ORDERABL ES Performing Organization Address [facility]/ZIP Co de Phone Number [facility] [place] [address] * Potassium (02/17/2024 5:42 PM EDT) Pathologist [facility] Potassium 4.3 3.5 - 5.0 mmol/L [facility] [...] MD CHEMISTRY ORDERABLE S Performing Organization Address [facility] Co de Phone Number [facility] [place] [address] * (ABNORMAL) BLOOD GAS 2 ARTERIAL (02/17/2024 4:18 PM EDT) pH, Arterial 7.34(L) 7.35 - 7.45 [facility] PCO2, Arterial 40 35 - 45 mmHg [facility] PO2, Arterial 78(L) 85 - 104 mmHg [facility] Bicarbonate, Arterial 20.8 20.0 - 26.0 mmol/L [facility] Base Excess, Arterial -5.1(L) -3.0 - 3.0 mmol/L [facility] Hgb Blood Gas 14.6 13.7 - 16.5 g/dL [facility] Oxyhemoglobin, Arterial 93.0(L) 94.0 - 97.0 % [facility] Carboxyhemoglob in, Arterial 0.3 % [facility] Comment: Nonsmokers: 0.5-1.5% COHB Smokers: Variable, but usually less than 10% Toxic: 20-30% COHB Lethal: Greater than 60% COHB Methemoglobin, Arterial 0.8 <=1.5 % [facility] [...] [facility] FIO2 Art 40 % [facility] PF Ratio Art 195 [facility] Blood 02/17/2024 4:18 PM EDT 02/17/2024 4:18 PM EDT Zak Graham MD POINT OF CARE TEST ORDERABLES Performing Organization Address City/State/[facility] Co de Phone Number [facility] [place] [address] * XR Chest One View (02/17/2024 1:44 PM EDT) [employer] WORKSTATION ID [id number] RAD Anatomical Region Laterality Modality Chest N/A Digital Radiogra phy Impressions 02/17/2024 2:12 PM EDT 1. ??No definite pleural fluid collection or pneumothorax. 2. ??Right IJ [place]-Kaila catheter tip terminates in a descending branch [...] questions please contact the health child care group leader that requested your imaging first. ? Electronically signed by: Denzel Hankins MD, [facility] ??([phone]), at 02/17/2024 2:12 PM Narrative 02/17/2024 2:12 PM EDT EXAMINATION: XR CHEST ONE VIEW CLINICAL HISTORY: s/p avr/cabg eval effusions TECHNIQUE: 1 view of the chest COMPARISON: Chest x-ray 01/09/2024, chest CT 02/03/2024 FINDINGS: ET tube tip terminates 5.2 cm above the carlos. Right IJ [place]-Kaila catheter tip terminates in a descending branch [...] 5.2 cm above the carlos. Right IJ [place]-Ganzcatheter tip terminates in a descending branch of [...] fluid collection or pneumothorax. 2. Right IJ [place]aila catheter tip terminates in a descending branch ofthe right pulmonary artery. Suggest catheter retraction. 3. Additional support lines and tubes as above. Thank you for letting us participate in the care of this patient. If youare a health care provider and have any questions regarding this report,please contact the number below. For patients who have questions please contactthe health child care group leader that requested your imaging first. Electronically signed by: Denzel Hankins MD, [facility]([phone]), at 02/17/2024 2:12 PM Zak Graham MD IMG DX ORDERABLES * (ABNORMAL) BLOOD GAS 2 ARTERIAL (02/17/2024 1:31 PM EDT) pH, Arterial 7.35 7.35 - 7.45 [facility] PCO2, Arterial 39 35 - 45 mmHg [facility] PO2, Arterial 320(H) 85 - 104 mmHg [facility] Bicarbonate, Arterial 21.4 20.0 - 26.0 mmol/L [facility] Base Excess, Arterial -4.2(L) -3.0 - 3.0 mmol/L [facility] Hgb Blood Gas 14.1 13.7 - 16.5 g/dL [facility] Oxyhemoglobin, Arterial 97.9(H) 94.0 - 97.0 % [facility] Carboxyhemoglob in, Arterial 0.3 % [facility] Comment: Nonsmokers: 0.5-1.5% COHB Smokers: Variable, but usually less than 10% Toxic: 20-30% COHB Lethal: Greater than 60% COHB Methemoglobin, Arterial 0.7 <=1.5 % [facility] Na Whole Blood 137 135 [...] [facility] FIO2 Art 100 % [facility] PF Ratio Art 320 [facility] Blood 02/17/2024 1:31 PM EDT 02/17/2024 1:31 PM EDT Zak Graham MD POINT OF CARE TEST ORDERABLES [facility] [place] [address] * (ABNORMAL) Coox2 (02/17/2024 1:21 PM EDT) pO2, Coox 44 mmHg [facility] Hgb Blood Gas 13.1(L) 13.7 - 16.5 g/dL [facility] Oxyhemoglobin, Coox 76.4 % [facility] Carboxyhemoglo bin, Coox 0.3 % [facility] Comment: Nonsmokers: 0.5-1.5% COHB Smokers: Variable, but usually less than 10% Toxic: 20-30% COHB Lethal: Greater than 60% COHB Methemoglobin, Coox 0.8 <=1.5 % [facility] Source Coox Mixed Venous [facility] Blood 02/17/2024 1:21 PM EDT 02/17/2024 1:21 PM EDT Zak Graham MD POINT OF CARE TEST ORDERABLES [facility] [place] [address] * (ABNORMAL) BLOOD GAS 2 ARTERIAL (02/17/2024 12:14 PM EDT) pH, Arterial 7.39 7.35 - 7.45 [facility] PCO2, Arterial 40 35 - 45 mmHg [facility] PO2, Arterial 338(H) 85 - 104 mmHg [facility] Bicarbonate, Arterial 23.7 20.0 - 26.0 mmol/L [facility] Base Excess, Arterial -1.3 -3.0 - 3.0 mmol/L [facility] Hgb Blood Gas 11.0(L) 13.7 - 16.5 g/dL [facility] Oxyhemoglobin, Arterial 98.8(H) 94.0 - 97.0 % [facility] Carboxyhemoglob in, Arterial 0.3 % [facility] Comment: Nonsmokers: 0.5-1.5% COHB Smokers: Variable, but usually less than 10% Toxic: 20-30% COHB Lethal: Greater than 60% COHB Methemoglobin, Arterial 0.3 <=1.5 % [facility] Na Whole Blood 135 135 [...] 02/17/2024 12:14 PM EDT Zak Graham MD POINT OF CARE TEST ORDERABLES Performing Organization Address [facility] Co de Phone Number [facility] [place] [address] * (ABNORMAL) Fibrinogen (02/17/2024 12:10 PM EDT) [...] MD HEMATOLOGY ORDERABLE S Performing Organization Address [facility] de Phone Number [facility] [place] [address] * (ABNORMAL) Thrombin time (02/17/2024 12:10 PM [...] MD HEMATOLOGY ORDERABLE S Performing Organization Address [facility]/ZIP Co de Phone Number [facility] [place] [address] * APTT (02/17/2024 12:10 PM EDT) Partial Thromboplastin Time 33 25 - 37 sec [facility] [...] MD HEMATOLOGY ORDERABLE S Performing Organization Address City/[facility]/ZIP Co de Phone Number [facility] [place] [address] * (ABNORMAL) Prothrombin Time (02/17/2024 12:10 PM EDT) Prothrombin Time 16.7(H) 9.4 - 12.5 sec [facility] Comment: OR Result called by ?? LOMARL OR Results read back by: ? silvia pagan at 2024-02-17 12:41:48 International Normalization Ratio 1.5 [facility] Comment: OR [...] HEMATOLOGY ORDERABLE S [facility] [place] [address] * (ABNORMAL) Hemogram (02/17/2024 12:10 PM EDT) White Blood Cell 11.1(H) 4.0 - 9.5 x10(3)/mc L [facility] Red Blood Cell 3.50(L) 4.58 - 5.54 x10(6)/mc L [facility] Hemoglobin 10.4(L) 13.7 - 16.5 g/dL [facility] Hematocrit 30.2(L) 40.5 - 48.5 % [facility] Comment: This result has been called to SILVIA PAGAN by Eddie López on 02 17 2024 at 1226, and has been read back. Mean Cell Volume 86.3 82.9 - 93.1 fL [facility] Mean Cell Hemoglobin 29.7 27.5 - 32.1 pg [facility] Mean Cell Hemoglobin Concentration 34.4 32.0 - 35.7 g/dL [facility] Platelet 118(L) 145 - 357 x10(3)/mc L [facility] RDW Standard Deviation 40.2 36.0 - 45.0 fL [facility] RDW coefficient of variation 12.8 11.4 - 13.8 % [facility] Mean Platelet Volume 9.5 7.6 - 12.9 fL [facility] NRBC% auto 0.0 % [facility] NRBC Absolute 0.000 0.000 - 0.000 x10(3)/mc L [facility] Blood 02/17/2024 12:1 0 PM EDT 02/17/2024 12:19 PM EDT Narrative Resulting Agency Comment Spec In Lab Tara York MD HEMATOLOGY ORDERABLE S [facility] [address] [place] [address] * (ABNORMAL) BLOOD GAS 2 ARTERIAL (02/17/2024 11:43 AM EDT) pH, Arterial 7.38 7.35 - 7.45 [facility] PCO2, Arterial 40 35 - 45 mmHg [facility] PO2, Arterial 304(H) 85 - 104 mmHg [facility] Bicarbonate, Arterial 23.2 20.0 - 26.0 mmol/L [facility] Base Excess, Arterial -1.9 -3.0 - 3.0 mmol/L [facility] Hgb Blood Gas 11.1(L) 13.7 - 16.5 g/dL [facility] Oxyhemoglobin, Arterial 98.6(H) 94.0 - 97.0 % [facility] Carboxyhemoglob in, Arterial 0.3 % [facility] Comment: Nonsmokers: 0.5-1.5% COHB Smokers: Variable, but usually less than 10% Toxic: 20-30% COHB Lethal: Greater than 60% COHB Methemoglobin, Arterial 0.3 <=1.5 % [facility] Na Whole Blood 133(L) 135 - 145 mmol/L [facility] K Whole Blood 6.2(Critic al) 3.5 - 5.0 mmol/L [facility] Comment: Noted by medical instrument technician. Please note: Patients with WBC [...] 02/17/2024 11:43 AM EDT Zak Graham MD POINT OF CARE TEST ORDERABLES [facility] [place] [address] * (ABNORMAL) BLOOD GAS 2 ARTERIAL (02/17/2024 11:08 AM EDT) pH, Arterial 7.38 7.35 - 7.45 [facility] PCO2, Arterial 38 35 - 45 mmHg [facility] PO2, Arterial 334(H) 85 - 104 mmHg [facility] Bicarbonate, Arterial 22.0 20.0 - 26.0 mmol/L [facility] Base Excess, Arterial -3.2(L) -3.0 - 3.0 mmol/L [facility] Hgb Blood Gas 10.8(L) 13.7 - 16.5 g/dL [facility] Oxyhemoglobin, Arterial 98.7(H) 94.0 - 97.0 % [facility] Carboxyhemoglob in, Arterial 0.3 % [facility] Comment: Nonsmokers: 0.5-1.5% COHB Smokers: Variable, but usually less than 10% Toxic: 20-30% COHB Lethal: Greater than 60% COHB Methemoglobin, Arterial 0.3 <=1.5 % [facility] Na Whole Blood 131(L) 135 - 145 mmol/L [facility] K Whole Blood 6.4(Critic al) 3.5 - 5.0 mmol/L [facility] Comment: Noted by medical instrument technician. Please note: Patients with WBC [...] 02/17/2024 11:08 AM EDT Zak Graham MD POINT OF CARE TEST ORDERABLES Performing Organization Address [facility] Co de Phone Number [facility] [place] [address] * (ABNORMAL) Hemoglobin and Hematocrit, blood (02/17/2024 11:04 AM EDT) Pathologist [facility] Hemoglobin 9.6(L) 13.7 - 16.5 g/dL [facility] [...] ORDERABL ES Performing Organization Address [facility] [facility]/ZIP Co de Phone Number [facility] [place] [address] * (ABNORMAL) Platelet count (02/17/2024 11:04 AM EDT) Platelet 106(L) 145 - 357 x10(3)/mc L [facility] Immature Plt % 1.6 0.0 - 7.4 % [facility] Comment: Limitation of the Immature Platelet Fraction (IPF)-May be less reliable when the platelet count is less than 87o746/uL due to statistical imprecision. The IPF value [...] in a decreased state of production. References: [employer] The Clinical Value of the Immature Platelet Fraction (IPF) in Cell Recovery Document Number [id number] 03/2011 [employer] The Role of the Immature Platelet Fraction (IPF) in the Differential Diagnosis of Thrombocytopenia, Document [id number] V002/15/14 P002/17 Blood 02/17/2024 11:0 4 AM EDT 02/17/2024 11:12 AM EDT Narrative Resulting Agency Comment Spec In Lab Zak Graham MD HEMATOLOGY ORDERABL ES Performing Organization Address City/State/[facility] Co de Phone Number [facility] [place] [address] * (ABNORMAL) Fibrinogen (02/17/2024 11:04 AM EDT) Fibrinogen 149(L) 200 - 393 mg/dL GR[facility] [...] Lab Zak Graham MD HEMATOLOGY ORDERABL ES [facility] [place] [address] * (ABNORMAL) BLOOD GAS 2 ARTERIAL (02/17/2024 10:41 AM EDT) pH, Arterial 7.37 7.35 - 7.45 [facility] PCO2, Arterial 44 35 - 45 mmHg [facility] PO2, Arterial 335(H) 85 - 104 mmHg [facility] Bicarbonate, Arterial 24.9 20.0 - 26.0 mmol/L [facility] Base Excess, Arterial -0.4 -3.0 - 3.0 mmol/L [facility] Hgb Blood Gas 11.5(L) 13.7 - 16.5 g/dL [facility] Oxyhemoglobin, Arterial 98.9(H) 94.0 - 97.0 % [facility] Carboxyhemoglob in, Arterial 0.1 % [facility] Comment: Nonsmokers: 0.5-1.5% COHB Smokers: Variable, but usually less than 10% Toxic: 20-30% COHB Lethal: Greater than 60% COHB Methemoglobin, Arterial 0.3 <=1.5 % [facility] Na Whole Blood 132(L) 135 [...] 02/17/2024 10:41 AM EDT Zak Graham MD POINT OF CARE TEST ORDERABLES [facility] [place] [address] * (ABNORMAL) BLOOD GAS 2 ARTERIAL (02/17/2024 10:06 AM EDT) pH, Arterial 7.38 7.35 - 7.45 [facility] PCO2, Arterial 42 35 - 45 mmHg [facility] PO2, Arterial 329(H) 85 - 104 mmHg [facility] Bicarbonate, Arterial 24.7 20.0 - 26.0 mmol/L [facility] Base Excess, Arterial -0.3 -3.0 - 3.0 mmol/L [facility] Hgb Blood Gas 11.0(L) 13.7 - 16.5 g/dL [facility] Oxyhemoglobin, Arterial 99.0(H) 94.0 - 97.0 % [facility] Carboxyhemoglob in, Arterial 0.3 % [facility] Comment: Nonsmokers: 0.5-1.5% COHB Smokers: Variable, but usually less than 10% Toxic: 20-30% COHB Lethal: Greater than 60% COHB Methemoglobin, Arterial 0.3 <=1.5 % [facility] Na Whole Blood 132(L) 135 [...] 02/17/2024 10:06 AM EDT Zak Graham MD POINT OF CARE TEST ORDERABLES [facility] [place] [address] * Surgical Pathology Report (02/17/2024 10:01 AM EDT) Final Diagnosis [id number] ? Location: [facility]; [facility]; The signing pathologist has (i) examined the relevant preparation(s) for the specimen(s) and (ii) rendered or confirmed the diagnosis(es). . ?Surgical Pathology DIAGNOSIS Aortic valve leaflets, excision: Valve leaflets with myxoid degeneration, nodular fibrosis and dystrophic calcifications. Electronically signed by: ?Lindsay FERNANDEZ, Livier Gonzalez Verified: ??02/24/2024 13:49 ??Pathologist Performed at: ??-[facility] of [place]ology, [place] [address] Tool And Cutter Grinder: Job Brewer MD, FCAP, ??CLIA Certificate: [id number] SPECIMEN(S) SUBMITTED A - Aortic Valve Leaflets, [...] Sections Processing Blocks submitted for decalcification: A1. Gang Saw Operator sections in 1 cassette labeled A1. ??ajw 02/24/2024 1:49 PM EDT [facility] AORTIC STRUCTURE / Unknown 02/17/2024 10:01 AM EDT 02/17/2024 10:01 AM EDT Zak Graham MD PATHOLOGY/CYTOLOGY ORDERABLES Performing Organization Address City/[facility]/ZIP Co de Phone Number [facility] [place] [address] * Specimen to Pathology (02/17/2024 10:01 AM EDT) AP Specimen 02/17/2024 10:0 1 AM EDT 02/17/2024 10:01 AM EDT Narrative [facility] - 02/17/2024 10:01 AM EDT Specimen requisition ordered. ??Separate Pathology report to follow Zak Graham MD PATHOLOGY/CYTOLOGY ORDERABLES Performing Organization Address City/[facility]/ZIP Co de Phone Number [facility] [place] [address] * (ABNORMAL) BLOOD GAS 2 ARTERIAL (02/17/2024 9:35 AM EDT) pH, Arterial 7.33(L) 7.35 - 7.45 [facility] PCO2, Arterial 35 35 - 45 mmHg [facility] PO2, Arterial 318(H) 85 - 104 mmHg [facility] Bicarbonate, Arterial 17.9(L) 20.0 - 26.0 mmol/L [facility] Base Excess, Arterial -8.0(L) -3.0 - 3.0 mmol/L [facility] Hgb Blood Gas 11.0(L) 13.7 - 16.5 g/dL [facility] Oxyhemoglobin, Arterial 98.8(H) 94.0 - 97.0 % [facility] Carboxyhemoglob in, Arterial 0.3 % [facility] Comment: Nonsmokers: 0.5-1.5% COHB Smokers: Variable, but usually less than 10% Toxic: 20-30% COHB Lethal: Greater than 60% COHB Methemoglobin, Arterial 0.3 <=1.5 % [facility] Na Whole Blood 131(L) 135 [...] 02/17/2024 9:35 AM EDT Zak Graham MD POINT OF CARE TEST ORDERABLES [facility] [place] [address] * (ABNORMAL) BLOOD GAS 2 VENOUS (02/17/2024 9:34 AM EDT) pH, Venous 7.22(Criti marquez) 7.32 - 7.42 [facility] Comment:Noted by medical instrument technician. PCO2, Venous 43 41 - 51 mmHg [facility] Comment:Noted by medical instrument technician. PO2, Venous 57(H) 25 - 40 mmHg [facility] Comment:Noted by medical instrument technician. Bicarbonate, Venous 17.1 mmol/L [facility] Comment:Noted by medical instrument technician. Base Excess, Venous -10.6 mmol/L [facility] Comment:Noted by medical instrument technician. Hgb Blood Gas 11.2(L) 13.7 - 16.5 g/dL [facility] Comment:Noted by medical instrument technician. Oxyhemoglobin, Venous 86.5 % [facility] Comment:Noted by medical instrument technician. Carboxyhemoglob in, Venous 0.3 % [facility] Comment: Noted by medical instrument technician. Nonsmokers: 0.5-1.5% COHB Smokers: Variable, but usually less than 10% Toxic: 20-30% COHB Lethal: Greater than 60% COHB Methemoglobin, Venous 0.0 <=1.5 % [facility] Comment:Noted by medical instrument technician. Na Whole Blood 156(H) 135 - 145 mmol/L [facility] Comment:Noted by medical instrument technician. K Whole Blood 5.5(H) 3.5 - 5.0 mmol/L [facility] Comment: Noted by medical instrument technician. Please note: Patients with WBC >100,000 may have falsely elevated Potassium levels. Contact the Clinical Chemistry Laboratory if there are any questions. ICa Whole Blood 1.03(L) 1.15 - 1.33 mmol/L [facility] Comment: Noted by medical instrument technician. Note: ??Total bilirubin higher than 20 mg/dL may lead to falsely low ionized calcium. CL Whole Blood 100 98 - 107 mmol/L [facility] Comment:Noted by medical instrument technician. Gluc Whole Bld 132 65 - 199 mg/dL [facility] Comment: Noted by medical instrument technician. Diabetes: >=200 mg/dL plus symptoms Lactate WB 1.0 0.5 - 2.2 mmol/L [facility] Comment:Noted by medical instrument technician. Blood Gas Source Venous [facility] Blood 02/17/2024 9:34 AM EDT 02/17/2024 9:34 AM EDT Zak Graham MD POINT OF CARE TEST ORDERABLES [facility] [place] [address] * (ABNORMAL) BLOOD GAS 2 ARTERIAL (02/17/2024 8:07 AM EDT) pH, Arterial 7.43 7.35 - 7.45 [facility] PCO2, Arterial 34(L) 35 - 45 mmHg [facility] PO2, Arterial 581(H) 85 - 104 mmHg [facility] Bicarbonate, Arterial 21.7 20.0 - 26.0 mmol/L [facility] Base Excess, Arterial -2.6 -3.0 - 3.0 mmol/L [facility] Hgb Blood Gas 14.5 13.7 - 16.5 g/dL [facility] Oxyhemoglobin, Arterial 99.0(H) 94.0 - 97.0 % [facility] Carboxyhemoglob in, Arterial 0.4 % [facility] Comment: Nonsmokers: 0.5-1.5% COHB Smokers: Variable, but usually less than 10% Toxic: 20-30% COHB Lethal: Greater than 60% COHB Methemoglobin, Arterial 0.3 <=1.5 % [facility] Na Whole Blood 139 135 [...] 02/17/2024 8:07 AM EDT Zak Graham MD POINT OF CARE TEST ORDERABLES Performing Organization Address [facility]/ZIP Co de Phone Number [facility] [place] [address] * POCT Glucose (02/17/2024 6:38 AM EDT) Glucose, POC 98 65 - 199 mg/dL [facility] Comment: Supplemental ranges: <140 mg/dL before meals <180 mg/dL all other times of the day Blood 02/17/2024 6:38 AM EDT 02/17/2024 6:38 AM EDT Zak Graham MD POINT OF CARE TEST ORDERABLES Performing Organization Address [facility] Co de Phone Number [facility] [place] [address] * Transesophageal Echo/OR (02/17/2024 6:33 AM EDT) Anatomical Region Laterality Modality Cardiac Other 02/17/2024 6:33 AM EDT Narrative 02/17/2024 4:08 PM EDT ? Version: 1 Name: PATENAUDE, VIRAJ ?Study Date: 02/17/2024, 6: 33 AM ?Patient [...] complete transesophageal echocardiogram was performed in the O.. formediate pre-operative and post-operative evaluation of cardiac [...] PM EDT 1 mg/min 33.3 mL/hr New 02/18/2024 2:26 PM EDT 1 mg/min 33.3 [...] AM EDT 0.5 mg/min 16.7 mL/hr New 02/19/2024 1:46 AM EDT 0.5 mg/min 16.7 mL/hr New Bag 02/18/2024 8:16 PM EDT 0.5 mg/min 16.7 mL/hr AMIOdarone (Nexterone) (1.8 mg/mL) in dextrose (iso-osmotic) infusion 1 mg/min (33.3333 mL/hr, rounded to 33.3 mL/hr), Intravenous, CONTINUOUS, Starting on Sat02/20/24 at 0700, Until Sat02/20/24 at 0916, Rotate IV site every 12 hours to prevent phlebitis Use in-line filter. Warning Vesicant/Irritant Medication Rate/Dose Verify 02/20/2024 9:13 AM EDT 1 mg/min 33.3 mL/hr New Bag 02/20/2024 7:13 AM EDT 1 mg/min 33.3 mL/hr AMIOdarone (Nexterone) (1.8 mg/mL) in dextrose (iso-osmotic) infusion 1 mg/min (33.3333 mL/hr, rounded to 33.3 mL/hr), Intravenous, CONTINUOUS, Starting on Sat02/20/24 at 0916, Until Sat02/21/24 at 0914, Rotate [...] 6 hours upon arrival to Unit. Give CA if unable to take PO, Routine Given [...] dose on Sat02/17/24 at 1400, Until Discontinued, [facility] teeth and / or gums. Scan the CHG vial in the [employer] Q-Care Oral Care Kit from floor stock. Ventilator-associated pneumonia prophylaxis For use in ICU/Critical care locations ONLY. Obtain kit from Floor Stock location. Scan CHG vial in the [employer] Q-Care Oral Care Kit, Routine Given 02/17/2024 [...] restart at 50% of previous rate. Call warehouse coordinator if goal not achieved at maximum rate. [...] PHENYLephrine and/or vasopressin ineffective. Call pager # [phone] if initiated. Titrate to keep systolic blood [...] Starting on Starla 02/20/24 at 1120, Until Sat02/20/24 at 1355, Nausea, second agent if nausea [...] 2.0 L/min/M2. Maximum volume 2 L. Call warehouse coordinator for additional fluid orders: pager #[phone]. Rate/Dose Verify 02/18/2024 8:00 AM EDT 1 mL/hr 1 mL/hr Rate/Dose Verify 02/18/2024 6:00 AM EDT 1 mL/hr 1 mL/hr Rate/Dose Verify 02/18/2024 4:00 AM EDT 1 mL/hr 1 mL/hr sodium chloride 0.9% infusion 10-30 mL/hr, Intravenous, DAILY PRN, Starting on Sat02/17/24 at 1307, Until Sat02/18/24 at 0835, Side port TKO rate, per [facility] nursing protocol. Rate/Dose Verify 02/17/2024 8:00 PM EDT 30 mL/hr 30 mL/hr Rate/Dose Verify 02/17/2024 6:00 PM EDT 30 mL/hr 30 mL/h r Rate/Dose Verify 02/17/2024 5:00 PM EDT 30 mL/hr 30 mL/h r sodium chloride 0.9% infusion 10-30 mL/hr, Intravenous, DAILY PRN, Starting on Sat02/17/24 at 1307, Until Sat02/18/24 at 0835, Side port TKO rate, per [facility] nrusing protocol. Rate/Dose Verify 02/18/2024 8:00 AM [...] Polo Britton RN)1210 (Given - Provider: Mishel Merrill, COLBY)1701 (Given - Provider: Mishel Merrill, COLBY)2324 (Given - Provider: Otis Crook, COLBY) 0430 (Given - Provider: Otis Crook, COLBY) apixaban (Eliquis) tablet 5 mg 5 mg, Oral, 2 TIMES DAILY, First dose on Sat02/21/24 at 1015, Until Discontinued, Anticoagulant, Routine, apixaban (Eliquis) Indication: Non-Valvular Atrial Fibrillation 0821 (Given - Provider: Reilly Vincent RN)2056 (Given - Provider: Polo Britton, COLBY) 906 (Given - Provider: Mishel Merrill, COLBY)2114 (Given - Provider: Otis Crook, COLBY) 0836 (Given - Provider: Jazlyn Maldonado, COLBY) aspirin chewable tablet 81 mg 81 mg, [...] 0821 (Given - Provider: Reilly Vincent RN) 906 (Given - Provider: Mishel Merrill RN) 0836 (Given - Provider: Jazlyn Maldonado, COLBY) brimonidine (Alphagan) 0.2 % ophthalmic solution 1 drop 1 drop, Both Eyes, 2 TIMES DAILY, First dose on Sat02/18/24 at 0930, Until Discontinued, Routine 0824 (Given - Provider: Reilly Vincent RN)2056 (Given - Provider: Polo Britton RN) 907 (Given - Provider: Mishel Merrill RN)2116 (Given - Provider: Otis Crook, COLBY) 0843 (Given - Provider: Jazlyn Maldonado, COLBY) dorzolamide (Trusopt) 2 % ophthalmic solution 1 drop 1 drop, Both Eyes, 3 TIMES DAILY, First dose on Sat02/18/24 at 0930, Until Discontinued, Routine 0824 (Given - Provider: Reilly Vincent RN)1408 (Given - Provider: Ingrid Menjivar RN)2056 (Given - Provider: Polo Britton RN) 907 (Given - Provider: Mishel Merrill RN)1500 (Given - Provider: Mishel Merrill RN)211 (Given - Provider: Otis Crook, RN) 0836 (Given - Provider: Jazlyn Maldonado, COLBY) lidocaine (Lidoderm) 5% patch 1 patch 1 patch, Transdermal, Administer over 12 Hours, DAILY, First dose on Sat02/18/24 at 1445, Until Discontinued, Apply patch(es) for 12 hours, and then remove for 12 hours., Routine 08 (Patch Applied - Provider: Reilly Vincent RN)2021 (Patch Removed - Provider: Polo Britton, COLBY) 09 (Patch Applied - Provider: Mishel Merrill, COLBY)2107 (Patch Removed - Provider: Otis Crook, COLBY) 0836 (Not Given - Provider: Jazlyn Maldonado, COLBY - Reason: Patient/family refused) metoprolol tartrate (Lopressor) tablet 100 mg 100 mg, Oral, EVERY 12 HOURS SCHEDULED (2 times per day), First dose (after last modification) on Sat02/23/24 at 0945, Until Discontinued, Hold for HR<60 and or SBP<90, Routine 0911 (Given - Provider: Mishel Merrill, COLBY)2114 (Given - Provider: Otis Crook, COLBY) 0835 (Given - Provider: Jazlyn Maldonado, COLBY) metoproloL tartrate (Lopressor) tablet 25 mg (CANCELED) 25 mg, Oral, EVERY 8 HOURS SCHEDULED, First dose (after last modification) on Sat02/21/24 at 1400, Until Discontinued, Hold for HR<60 and or SBP<90, Routine 0625 (Given - Provider: Polo Britton, COLBY) metoproloL tartrate (Lopressor) tablet 25 mg (COMPLETED) 25 mg, Oral, ONCE, 1 dose, On 02/22/24 at 1000, Routine 1002 (Given - Provider: Ingrid Menjivar RN) metoprolol tartrate (Lopressor) tablet 50 mg (CANCELED) 50 mg, Oral, EVERY 12 HOURS SCHEDULED (2 times per day), First dose (after last modification) on Sat02/22/24 at 2100, Until Discontinued, Hold for HR<60 and or SBP<90, Routine 2057 (Given - Provider: Polo Britton RN) pantoprazole EC (Protonix) tablet 40 mg(Linked Group 2) 40 mg, Oral, DAILY, First dose on Sat02/17/24 at 1400, Until Discontinued, DO NOT CRUSH OR OPEN If unable to take PO, may give IV, Routine 0821 (Given - Provider: Reilly Vincent RN) 0907 (Given - Provider: Mishel Merrill, COLBY) 0835 (Given - Provider: Jazlyn Maldonado RN) potassium chloride 10 mEq in sterile water [...] RN) 0930 (Not Given - Provider: Jazlyn Maldonado, COLBY - Reason: Patient/family refused - Comment: d/c [...] Discontinued, Routine 0823 (Given - Provider: Reilly Vincent, COLBY) 0908 (Given - Provider: Mishel Merrill, COLBY) 0839 (Given - Provider: Jazlyn Maldonado, COLBY) Continuous Medication Order 02/22/2024 02/23/2024 02/24/2024 dextrose 5% and sodium chloride 0.45% infusion (CANCELED) 50 mL/hr, Intravenous, CONTINUOUS, Starting on Sat02/21/24 at 1015, Until Sat02/23/24 at 0847 0128 (New Bag - Provider: Polo Britton RN)1830 (New Bag - Provider: Reilly Vincent RN) 0900 (Stopped - Provider: Mishel Merrill, COLBY) PRN Medication Order 02/22/2024 02/23/2024 02/24/2024 bisacodyL (Dulcolax) suppository 10 mg 10 mg, Rectal, DAILY PRN, Starting on Starla 02/20/24 at 0000, Until 02/24/24 at 1323, Constipation, Starting post-op day 3., Routine HYDROmorphone (Dilaudid) tablet 2-6 mg 2-6 mg, Oral, EVERY 4 HOURS PRN, Starting on Sat02/18/24 at 1440, Until 02/24/24 at 1323, Pain, Give 2 mg 1 [...] Routine documented in this encounter Care Teams Picture Frames Inspector Relationship Specialty Start Date End Date Aparna Jordan APRN PCP - General Family Medicine 10/21/23 documented as of this encounter
--- OUTSIDE RECORDS SUMMARY | 2024-05-11 08:13 | XMS_ITS | Encounter Summary ---
[facility] Organization [facility] [place] [address] Care Team Providers Care Casing Worker Name Role Phone Aparna Jordan MAURI Primary Care Provider [phone] Reason for Visit * Auth/Cert (Routine) Specialty [...] ARTERIAL GRAFT (WRVU 7.93) Hayder Graham MD [facility] CARDIOTHORACIC [place] [address] [facility] Referral ID Status Reason Start Date Expiration Date Visits Re quested Visits Authorized [id number] 1 1 Encounter Details Date Type Department Care Team (Late st Contact Info) Description 02/17/2024 7:30 AM EDT - 02/17/2024 1:26 PM EDT Surgery [place] [id number] Hayder Graham MD [facility] CARDIOTH[place]AC[place] [address] ENDOSCOPIC HARVEST VEIN(S) FOR CABG (WRVU 0.31) Social History Tobacco Use Types Packs/Day Years Used Date Smoking Tobacco: Former Cigarettes Smokeless Tobacco: Never Comments:Quit 15 + years ago Alcohol Use Standard Drinks/Week Comments Yes 0 (1 standard drink = 0.6 oz pur e alcohol) rare [facility] Utilities Answer Date Recorded In [...] Patient Age: 63 y.o. Birthdate: 1960 Language: Kuwaiti Race: White Ethnicity: Not nor Admit Date: 02/17/2024 Discharge Date: 02/24/24 Attending Physician: Hayder Graham MD Follow-up Recommendations for Providers: Please continue routine management of cardiovascular risk factors including blood pressure, lipids,glucose, etc. Please note any changes to medications. Patient to follow up with PCP, Aparna Jordan APRN, in 1-2 weeks. Patient to follow up with Wedger, Neftali Ernandez MD , in 2 weeks. Patient to follow up with Cardiac Surgeon, Dr. Hayder Graham, with a chest x-ray, EKG, and Echo. Inpatient Provider Contact Information: [facility] Section of Cardiac Surgery [facility] [place] [address] FAX [phone] Discharge Diagnoses (Hospital Problems) Primary Diagnoses: /CAD [...] Hypertension 08/14/2023 Nevus of face 09/26/2023 Right jain Past Surgical History: Procedure Laterality Date PRO CABG, ARTERIAL, SINGLE N/A 02/17/2024 @CABG, USING ARTERIAL GRAFT;SINGLE ARTERIAL GRAFT (WRVU 33.75) performed by Hayder Graham MD at [facility] MAIN OR PRO CABG, ARTERY-VEIN, TWO N/A 02/17/2024 @CABG, TWO VENOUS GRAFTS & ARTERIAL GRAFT (WRVU 7.93) performed by Hayder Graham MD at [facility] MAIN OR PRO ENDOSCOPY W/VIDEO-ASST VEIN HARVEST, CABG Left 02/17/2024 ENDOSCOPIC HARVEST VEIN(S) FOR CABG (WRVU 0.31) performed by Hayder Graham MD at [facility] MAIN OR PRO REPLACEMENT PROSTHETIC AORTIC VALVE OPEN W CARDIOPULMONARY BYPASS HOMOGRF/STENT N/A 02/17/2024 @REPLACE AORTIC VALVE, OPEN, W\CPB, W\PROSTHETIC VALVE (WRVU 41.32) performed by Hayder Graham MD at [facility] MAIN OR Prior To Admission Medications [...] insufficiency. He has glaucoma. He used to [employer] until about 15 years ago. He has undergone prior herniorrhaphy. 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 Major Procedures/Operations: 02/17/24 s/p avr/cabgx3 CABG x 3 JOSE->LAD SVG->dRCA SVG->OM1 EVH from LLE AVR with a 23 mm Inspiris Bioprosthesis Hospital Course: Karlos Garcia was admitted to [facility] on 02/17/2024 via the Same Day [...] Hayder Graham and/or the Cardiac Surgery Physician Buyer Broker Team may be reached at . Antibiotic [...] Please refer to the card with the [place] [employer] Guidelines for more information. You [...] Dr. Hayder Graham. You may use a Axis Track or treadmill but avoid any pulling [...] friends, go to a movie, go to protestant, etc. Heavy activities: No hunting, skiing, jogging, [...] should resume a low fat, low cholesterol, [place] [employer] Diet. Driving: No driving until [...] while being managed by your PCP and/or Wedger. For future medication refills, please refer to your PCP and/or Wedger after your discharge from our service. Thank you REMOVE CHEST TUBE SUTURES ON OR AFTER 03/02/24 Home oxygen therapy: N/A Follow up appointments: You should follow up with your PCP, Aparna Jordan APRN, in 1-2 weeks. Our office will schedule an appointment with your Wedger, Neftali Ernandez MD , in 2 weeks. You have an appointment with your Cardiac Surgeon, Dr. Hayder Graham, 4 weeks with a chest x-ray, EKG, and Echo before your appointment. Cardiac Rehabilitation: Karlos Garcia was seen regarding participation in the outpatient Phase 2Cardiac Rehabilitation at [facility]. The patient agrees to a referral to this program. The referral will be sent at discharge and the patient should be contacted by the Program within 1- 2 weeks from discharge. Future Appointments and Orders Future Orders Complete By Expires Echocardiogram Transthoracic [02602 CPT(R)] 03/26/2024 09/25/2024 Process Instructions: Scheduling Instructions: Questions: Where will study be performed?: [facility] Clinics Does the patient have Congenital Heart Disease?: Does patient require sedation?: Sedation rationale: XR Chest PA & Lateral (Generic) [20355 72838 Custom] 03/26/2024 09/25/2024 Process Instructions: Scheduling Instructions: Questions: Portable exam?: Reason for exam and clinical history: s/p avr/cabg Clinical information / jerome questions for radiologist: Stat read required?: Date of injury if applicable: Requested Time: Where will study be performed?: [facility] Radiology Referral to Cardiac Rehab [LHO150 Custom] As directed Process Instructions: If no progress note charted, please enter Clinical details in comments. Scheduling Instructions: Questions: My question or request is: s/p AVR/CABG. Cardiac rehab at [facility]. Referral to Home Health [REF34 Custom] As directed Process Instructions: If no progress note charted, please enter Clinical details in comments. Scheduling Instructions: Comments: Please evaluate Karlos Garcia for admission to Home Health. [address] Phone Number: Date of : 1960 Inpatient DOCUMENTATION FOR VNA SERVICES (INCLUDING THOSE PATIENTS WITH MEDICARE COVERAGE REQUIRING HOME VNA SERVICES AND/OR HOSPICE SERVICES) PATIENT'S LOCATION: Karlos Garcia [address] [employer] [phone] Survey Technician's Name: self/family In discussion with the attending physician, it is certified that this patient is under their care and that they, or a Nurse Practitioner, or Physician Buyer Broker who is working directly with them, hada [...] for services as follows: HOME HEALTH AGENCY: [facility] [address] [place] [id number] RN orders: Cardiopulmonary assessment, incisional assessment, assess [...] issues please call the Cardiology Office at [phone] FOR MEDICARE ONLY: (please delete this section [...] care: As above. Signed: NEFTALI MENON PA-C [facility] Section of Cardiac Surgery [facility] [place] [address] FAX [phone] Date: 02/24/2024 CC: Aparna Jordan, MAURI Jordan, Aparna Sherman APRN [address] [place] [address] documented in this encounter Discharge Instructions * [...] Hayder Graham and/or the Cardiac Surgery Physician Buyer Broker Team may be reached at . Antibiotic [...] Please refer to the card with the [place] [employer] Guidelines for more information. You [...] Dr. Hayder Graham. You may use a Axis Track or treadmill but avoid any pulling [...] friends, go to a movie, go to protestant, etc. Heavy activities: No hunting, skiing, jogging, [...] should resume a low fat, low cholesterol, [place] [employer] Diet. Driving: No driving until [...] while being managed by your PCP and/or Wedger. For future medication refills, please refer to your PCP and/or Wedger after your discharge from our service. Thank you REMOVE CHEST TUBE SUTURES ON OR AFTER 03/02/24 Home oxygen therapy: N/A Follow up appointments: You should follow up with your PCP, Aparna Jordan APRN, in 1-2 weeks. Our office will schedule an appointment with your Wedger, Neftali Ernandez MD , in 2 weeks. You have an appointment with your Cardiac Surgeon, Dr. Hayder Graham, 4 weeks with a chest x-ray, EKG, and Echo before your appointment. Cardiac Rehabilitation: Karlos Garcia was seen regarding participation in the outpatient Phase 2Cardiac Rehabilitation at [facility]. The patient agrees to a referral [...] 0600 and on the weekends please page [phone]. * Eric Barahona PA - 02/23/2024 9:27 [...] 0600 and on the weekends please page [phone]. * Tiffanie Owens - 02/22/2024 2:48 PM [...] Pt reports his dtr is coming from [place] to stay upon d/c for 10 days. 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 He works Precautions/Special Considerations: STERNAL [...] LRAD and supervision Time IN / OUT: 1754-6472 Total Time: 30 minutes; TEFx2 Tiffanie Owens Pager: [phone] Physical Therapy Inpatient Rehabilitation Department * Romeo [...] 0600 and on the weekends please page [phone]. * Kelley Hinson PTA - 02/21/2024 10:15 [...] Pt reports his dtr is coming from [place] to stay upon d/c for 10 days. 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 * Kelley Hinson PTA - 02/20/2024 3:32 PM EDT 02/20/24 3231 Evaluation & Treatment Document Type contact Total Minutes, Physical Therapy 0 Comment, Session Not Performed Checked in w/ pt this PM for ongoing PT services, pt politely declined, stating he had been dealing w/ nausea all day, made plan to see him tomorrow morning, will f/u at that time Kelley Hinson PTA Pager: [phone] Physical Therapy Inpatient Rehab Department * Louisa [...] 0600 and on the weekends please page [phone]. * Maris Benavides, PT - 02/19/2024 11:22 [...] Pt reports his dtr is coming from [place] to stay upon d/c for 10 days. 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 Precautions/Special Considerations: STERNAL [...] outlined inthis evaluation. MARIS BENAVIDES, PT Pager: [phone] Physical Therapy Inpatient Rehabilitation Department Time IN / OUT: 2399-5363 Total Time: 38 (eval) minutes; * Antonio [...] 0600 and on the weekends please page [phone]. * Minnie Begum PA - 02/18/2024 8:25 [...] site CDI with SANJANA wrap Tubes/Lines/Drains: RIJ/PAC, [place], Med Ctx, L pleural CT, TPW, Naqvi [...] 0600 and on the weekends please page [phone]. * Kim Ha RCP - 02/17/2024 2:25 [...] plan since last visit. Hayder Graham MD [phone] Source Note - Hayder Graham MD - [...] given written informed consent. Hayder Graham MD [phone] * Hayder Graham MD - 02/17/2024 7:00 [...] insufficiency. He has glaucoma. He used to [employer] until about 15 years ago. He has [...] given written informed consent. Hayder Graham MD [phone] documented in this encounter Miscellaneous Notes * [...] information for follow-up Home Health & Hospice, [address] [place] [address] Cardiac Rehab, [facility] [address] [place] [address] [place] [address] Transportation: family or friend will provide Functional status prior to admission: Independent Home Environment: Others in the home: alone. Current Living Arrangements: home/apartment/condo. Accessibility Concerns:a few steps to enter 1 floor home. Current Functional Ability: Assistive Person and Equipment DME used at home: none DME Needed at Discharge: N/A Patient is insured through: Primary Insurance: [facility] Payor: [facility] / Plan: [facility] PPO / Product Type: *No [...] pain managed with scheduled Tylenol. Worked with [employer]. Ambulated in the roque multiple times during [...] anticipated Patient is insured through: Primary Insurance: [facility] Payor: [facility] / Plan: [facility] PPO / Product Type: *No Product type* / Secondary Insurance: N/A Last Physical Therapy Recommendation: home with home health (Str coming to stay for a week or two upon d/c) with to be determined (owns rolling walker, shower seat) Plan for discharge is: Home w/ Services Outpatient Agency/Support Group Needs: Homecare agency Home Health Services: Physical Therapy, Registered Nurse Agency Referrals: [facility]. [address] [place] [address] Transportation: family or friend will provide Barriers to discharge: Discharge planning Plan going forward: Service Care Management will continue to follow and assist with discharge planning and coordination of care as indicated. Anticipated Date of Discharge: 02/22/2024 Rhett Bell RN RN/CM - Cellphone: [phone] Pager: [phone] Covering Service RN/CM * Plan of Care [...] Yang RN - 02/19/2024 10:44 AM EDT [facility] CARDIAC REHABILITATION Karlos Garcia was seen today regarding participation in the outpatient Phase 2 Cardiac Rehabilitation at [facility]. The patient agrees to a referral [...] Hypertension 08/14/2023 Nevus of face 09/26/2023 Right jain Hospitalizations Within the Past 30 Days: no previous admission in last 30 days Current Decision-Making Capacity: Self If AD's have not been completed the following surrogate would be surrogate decision maker per [place] surrogate decision making law. (Only good for 180 days) Any patient receiving care in [place] must abide by [place] law. The hierarchy for surrogate decision making [...] (i) The agent with financial power of civil litigation attorney or a conservator appointed in accordance [...] In the past 12 months has the [employer], gas, oil, or water Coub threatened to shut off services in your [...] Home Address confirmed as: [address] [facility] [address] Physical address: [address] [facility], [address] Social & Family Supports: All names listed [...] Information: none noted Health/Prescription Coverage: Primary Insurance: [facility] [employer] Payor: [facility] / Plan: [facility] PPO / Product Type: *No Product type* / Secondary Insurance: N/A ; Prescription Coverage: Yes Preferred Pharmacy: [id number] [address] [place] Status: Patient is a : No Primary Care Provider confirmed: Aparna Jordan, NAVAL SCIENCE TEACHER [phone] Patient/Caregiver Goals of Treatment: dc to home Potential Needs for Transition of Care: home health care Agency Referrals: I have met with the patient to: discuss discharge planning needs. provide the [facility], Office of Care Management letter from the [employer] pertaining to rehab referrals. provide a letter describing our affiliations within the [facility] and educate about their right to choose where referrals are sent. provide a list of Home Health Agencies / Durable Medical Equipment vendors which serve their preferred geographic area. provided patient with [facility] Star Quality Rating handout. They have requested referrals to: [facility] [address] [place] [address] Note routed to a Chain Sales Consultant who will communicate referrals to facilities and [...] daughter, Cielo, will be coming in from [place] on 02/18, to stay with him , in his home ,at discharge. Pt states that she is able to provide support/assist for any needs that he may have when discharged. Plan: dc to home A member of the Care Management team will continue to monitor progress, follow for continuity of care and assist with transition of care planning. Reina Greene RN CM, BSN, [facility]- Ext [phone] * Plan of Care - Binta Trinidad [...] Operative Note Patient Name: Karlos Garcia : [id number] MR#: [id number] Case Date: 02/17/2024 Surgeon: Surgeon(s) and Role: * Hayder Graham MD - Primary * Neftali Menon PA - Physician Buyer Broker Preoperative diagnosis: CAD Postoperative diagnosis: CAD, intraoperative [...] mL Drains: Mediastinal and Left pleural Disposition: [facility] Condition: doing well without problems Attestation: Case Date: 02/17/2024 I performed this procedure without the involvement of a resident. HAYDER GRAHAM MD 02/17/2024 * Op Note - Hayder Graham MD - 02/17/2024 8:20 AM EDT [facility] Operative Note Patient Name: Karlos Garcia : [id number] MR#: [id number] Case Date: 02/17/2024 Surgeon: Surgeons and Role: * Hayder Graham MD - Primary * Neftali Menon PA - Physician Buyer Broker Preoperative diagnosis: CAD Postoperative diagnosis: CAD, intraoperative [...] mL Drains: Mediastinal and Left pleural Disposition: [facility] Procedure Description: The patient was brought to [...] AM EDT Office Visit Cardiology at [address] [address] Neftali Ernandez MD [facility] [place] [address] Scheduled Orders Name Type Priority Associated Diagnoses [...] EDT BLOOD GAS ARTERIAL POC Routine 4 11:43 AM EDT BLOOD GAS ARTERIAL POC Routine 4 11:08 AM EDT HEMOGLOBIN AND HEMATOCRIT, BLOOD [...] EDT BLOOD GAS ARTERIAL POC Routine 4 9:35 AM EDT BLOOD GAS VENOUS POC Routine 02/17/2024 9:34 AM EDT BLOOD GAS ARTERIAL POC Routine 4 8:07 AM EDT Replacement Prosthetic Aortic Valve Open W Cardiopulmonary Bypass Homogrf/Stent (69533) Yes 02/17/2024 7:28 AM EDT CAD Cabg, Artery-Vein, Two ([id number]) Yes 02/17/2024 7:28 AM EDT CAD Cabg, Arterial, Single ([id number]) Yes 02/17/2024 7:28 AM EDT CAD Endoscopy W/Video-Asst Vein [place], Cabg ([id number]) Yes 02/17/2024 7:28 AM EDT CAD POCT GLUCOSE Routine 02/17/2024 6:38 AM EDT TRANSESOPHAGEAL ECHOCARDIOGRAM IN THE OR Routine 02/17/2024 6:33 AM EDT Aortic valve stenosis, etiology of cardiac valve disease unspecified LAB SCAN 02/17/2024 12:00 AM EDT IMPLANTABLE DEVICES SCAN 02/17/2024 12:00 AM EDT documented in this encounter Results * Potassium (02/24/2024 4:42 AM EDT) Potassium 4.0 3.5 - 5.0 mmol/L [facility] Comment: Please note: ??Patients with WBC >100,000 may have falsely elevated Potassium levels. ??For accurate Potassium quantification in these patients send serum separator tube (gold top) for subsequent determinations. ??Contact the Clinical Chemistry Laboratory if there are any questions. Blood 02/24/2024 4:42 AM EDT 02/24/2024 4:59 AM EDT Narrative Resulting Agency Comment Spec In Lab Hayder Graham MD CHEMISTRY ORDERABLE S [facility] [place] [address] * (ABNORMAL) Basic Metabolic Panel (non-fasting) (02/23/2024 4:24 AM EDT) Glucose 117 65 - 199 mg/dL [facility] Comment:Diabetes: >=200 mg/d L plus symptoms Blood Urea Nitrogen 18 10 - 20 mg/dL [facility] Creatinine 0.71(L) 0.80 - 1.50 mg/dL [facility] Sodium 138 135 - 145 mmol/L [facility] Potassium 4.4 3.5 - 5.0 mmol/L [facility] Comment: Please note: ??Patients with WBC >100,000 may have falsely elevated Potassium levels. ??For accurate Potassium quantification in these patients send serum separator tube (gold top) for subsequent determinations. ??Contact the Clinical Chemistry Laboratory if there are any questions. Chloride 101 98 - 107 mmol/L [facility] Carbon Dioxide 26 22 - 31 mmol/L [facility] Anion Gap 11 5 - 15 mmol/L [facility] Calcium 8.8 8.5 - 10.5 mg/dL [facility] Est Glomerular Filtration Rate 102 >=60 mL/min/1. 73 m?? [facility] Comment: This patient's estimated GFR [...] In Lab Romeo Carpio MD CHEMISTRY ORDERABLES [facility] [place] [address] * Potassium (02/22/2024 4:30 AM EDT) Potassium 3.5 3.5 - 5.0 mmol/L [facility] Comment: Please note: ??Patients with WBC >100,000 may have falsely elevated Potassium levels. ??For accurate Potassium quantification in these patients send serum separator tube (gold top) for subsequent determinations. ??Contact the Clinical Chemistry Laboratory if there are any questions. Blood 02/22/2024 4:30 AM EDT 02/22/2024 5:12 AM EDT Narrative Resulting Agency Comment Spec In Lab Hayder Graham MD CHEMISTRY ORDERABLE S [facility] [place] [address] * (ABNORMAL) Basic Metabolic Panel (non-fasting) (02/21/2024 9:45 AM EDT) Glucose 123 65 - 199 mg/dL [facility] Comment:Diabetes: >=200 mg/d L plus symptoms Blood Urea Nitrogen 22(H) 10 - 20 mg/dL [facility] Creatinine 0.78(L) 0.80 - 1.50 mg/dL [facility] Sodium 140 135 - 145 mmol/L [facility] Potassium 3.9 3.5 - 5.0 mmol/L [facility] Comment: Please note: ??Patients with WBC >100,000 may have falsely elevated Potassium levels. ??For accurate Potassium quantification in these patients send serum separator tube (gold top) for subsequent determinations. ??Contact the Clinical Chemistry Laboratory if there are any questions. Chloride 100 98 - 107 mmol/L [facility] Carbon Dioxide Not Perf 22 - 31 [facility] Comment:Add-on request. Samp le too old to perform test. Anion Gap Unable to Calculate 5 - 15 mmol/L [facility] Calcium 8.6 8.5 - 10.5 mg/dL [facility] Est Glomerular Filtration Rate 100 >=60 mL/min/1 .73 m?? [facility] Comment: This patient's estimated GFR [...] In Lab Romeo Carpio MD CHEMISTRY ORDERABLES [facility] [place] [address] * Lactate, whole blood, send to lab ([facility]) (02/21/2024 9:45 AM EDT) [facility] Lactate WB 2.0 0.5 - 2.2 mmol/L [facility] Blood 02/21/2024 9:45 AM EDT 02/21/2024 9:52 AM EDT Narrative Resulting Agency Comment Spec In Lab Hayder Graham MD CHEMISTRY ORDERABLE S Performing Organization Address [facility]/ZIP Co de Phone Number [facility] [place] [address] * (ABNORMAL) Hepatic Function Panel (02/21/2024 9:45 AM EDT) [facility] Protein, Total 5.7(L) 6.1 - 8.0 g/dL [facility] Albumin 3.3 3.2 - 5.2 g/dL [facility] Aspartate Aminotransferase 13 0 - 39 unit/L [facility] Alanine Aminotransferase 16 0 - 55 unit/L [facility] Alkaline Phosphatase 63 40 - 130 unit/L [facility] Bilirubin, Total 0.6 0.2 - 1.3 mg/dL [facility] Bilirubin, Direct 0.2 0.0 - 0.3 mg/dL [facility] Blood 02/21/2024 9:45 AM EDT 02/21/2024 9:52 AM EDT Narrative Resulting Agency Comment Spec In Lab Hayder Graham MD CHEMISTRY ORDERABLE S Performing Organization Address City/[facility]/ZIP Co de Phone Number [facility] [place] [address] * Lipase (02/21/2024 9:45 AM EDT) Lipase 56 0 - 60 unit/L [facility] Blood 02/21/2024 9:45 AM EDT 02/21/2024 9:52 AM EDT Narrative Resulting Agency Comment Spec In Lab Hayder Graham MD CHEMISTRY ORDERABLE S Performing Organization Address City/[facility]/ZIP Co de Phone Number [facility] [place] [address] * Amylase (02/21/2024 9:45 AM EDT) Amylase 69 28 - 100 unit/L [facility] Blood 02/21/2024 9:45 AM EDT 02/21/2024 9:52 AM EDT Narrative Resulting Agency Comment Spec In Lab Hayder Graham MD CHEMISTRY ORDERABLE S Performing Organization Address [facility] Co de Phone Number [facility] [place] [address] * Potassium (02/21/2024 3:08 AM EDT) [facility] Potassium 3.8 3.5 - 5.0 mmol/L [facility] Comment: Please note: ??Patients with [...] MD CHEMISTRY ORDERABLE S Performing Organization Address City/[facility]/ZIP Co de Phone Number [facility] [place] [address] * XR Chest PA & Lateral (Generic) (02/20/2024 10:19 AM EDT) [facility] WORKSTATION ID [id number] RAD Anatomical Region Laterality Modality Chest N/A Digital Radiogra phy Impressions 02/20/2024 1:11 PM EDT Small pleural effusions. No pneumothorax Thank you for letting us participate in the care of this patient. ??If you are a health care provider and have any questions regarding this report, please contact the number below. ??For patients who have questions please contact the health child care associate teacher that requested your imaging first. ? Narrative 02/20/2024 1:11 PM EDT EXAMINATION: XR CHEST PA AND LATERAL (GENERIC) CLINICAL HISTORY: s/p AVR/CABGx3 TECHNIQUE: PA and lateral views of the chest COMPARISON: 02/17/2024 FINDINGS: Support devices: Interval removal of [place]aila catheter, endotracheal tube and mediastinal chest tubes The cardiac silhouette is stable status post median sternotomy, CABG and aortic valve replacement. There are small pleural effusions. No pneumothorax. Procedure Note Rogerio Cruz MD - 02/20/2024 EXAMINATION: XR CHEST PA AND LATERAL (GENERIC) CLINICAL HISTORY: s/p AVR/CABGx3 TECHNIQUE: PA and lateral views of the chest COMPARISON: 02/17/2024 FINDINGS: Support devices: Interval removal of [place]aila catheter, endotracheal tubeand mediastinal chest tubes The [...] have questions please contactthe health child care associate teacher that requested your imaging first. Hayder Graham MD IMG DX ORDERABLES * Scan, Peripheral Blood (02/20/2024 4:23 AM EDT) Pathologist [facility] Plat estimate Decreased [facility] RBC Morphology Normal [facility] Blood 02/20/2024 4:23 AM EDT 02/20/2024 4:42 AM EDT Narrative Resulting Agency Comment Spec In Lab Minnie FRENCH HEMATOLOGY CECILIO ALEMAN [facility] [place] [address] * (ABNORMAL) Differential, Automated (02/20/2024 4:23 AM EDT) [facility] Neutrophil % 81.7 % [facility] Neutrophil Absolute 10.37(H) 1.70 - 6.10 x10(3)/mc L [facility] Lymph % 7.4 % [facility] Lymphocytes Abs 0.9 0.9 - 3.2 x10(3)/mc L [facility] Monocyte % 9.7 % [facility] Monocyte Abs 1.2(H) 0.3 - 0.9 x10(3)/mc L [facility] Eos % 0.1 % [facility] Eosinophils Abs 0.0 0.0 - 0.4 x10(3)/mc L [facility] Basophil % 0.2 % [facility] Baso Absolute 0.0 0.0 - 0.1 x10(3)/mc L [facility] Immature Gran % 0.90 % [facility] Comment: Immature granulocytes(IG's)percentage and absolute count will include metamyelocytes, myelocytes, and promyelocytes. Blood smears from CBCs yielding IG's will be scanned manually for concordance. If this scan disagrees with the automated IG or if promyelocytes are noted, a manual differential will be performed. Immature Gran Absolute 0.12(H) 0.00 - 0.04 x10(3)/mc L [facility] Blood 02/20/2024 4:23 AM EDT 02/20/2024 4:42 AM EDT Narrative Resulting Agency Comment Spec In Lab Minnie FRENCH HEMATOLOGY CECILIO ALEMAN [facility] [place] [address] * (ABNORMAL) Hemogram (02/20/2024 4:23 AM EDT) White Blood Cell 12.7(H) 4.0 - 9.5 x10(3)/mc L [facility] Red Blood Cell 4.26(L) 4.58 - 5.54 x10(6)/mc L [facility] Hemoglobin 12.3(L) 13.7 - 16.5 g/dL [facility] Hematocrit 37.1(L) 40.5 - 48.5 % [facility] Mean Cell Volume 87.1 82.9 - 93.[address] [facility] Mean Cell Hemoglobin 28.9 27.5 - 32.[address] [facility] Mean Cell Hemoglobin Concentration 33.2 32.0 - 35.7 g/dL [facility] Platelet 88(L) 145 - 357 x10(3)/mc L [facility] RDW Standard Deviation 43.5 36.0 - 45.[address] [facility] RDW coefficient of variation 13.7 11.4 - 13.8 % [facility] Mean Platelet Volume 10.2 7.6 - 12.[address] [facility] NRBC% auto 0.0 % [facility] NRBC Absolute 0.000 0.000 - 0.000 x10(3)/mc L [facility] Blood 02/20/2024 4:23 AM EDT 02/20/2024 4:42 AM EDT Narrative Resulting Agency Comment Spec In Lab Minnie FRENCH HEMATOLOGY CECILIO ALEMAN [facility] [place] [address] * (ABNORMAL) Basic Metabolic Panel (non-fasting) (02/20/2024 4:23 AM EDT) Glucose 113 65 - 199 mg/dL [facility] Comment:Diabetes: >=200 mg/d L plus symptoms Blood Urea Nitrogen 20 10 - 20 mg/dL [facility] Comment:result rechecked-[place] Creatinine 0.71(L) 0.80 - 1.50 mg/dL [facility] Sodium 135 135 - 145 mmol/L [facility] Potassium 3.9 3.5 - 5.0 mmol/L [facility] Comment: Please note: ??Patients with WBC >100,000 may have falsely elevated Potassium levels. ??For accurate Potassium quantification in these patients send serum separator tube (gold top) for subsequent determinations. ??Contact the Clinical Chemistry Laboratory if there are any questions. Chloride 102 98 - 107 mmol/L [facility] Carbon Dioxide 25 22 - 31 mmol/L [facility] Anion Gap 8 5 - 15 mmol/L [facility] Calcium 8.7 8.5 - 10.5 mg/dL [facility] Comment:result rechecked-[place] Est Glomerular Filtration Rate 102 >=60 mL/min/1. 73 m?? [facility] Comment: This patient's estimated GFR [...] MD CHEMISTRY ORDERABLE S Performing Organization Address [facility] Co de Phone Number [facility] [place] [address] * Potassium (02/19/2024 3:57 AM EDT) Potassium 4.3 3.5 - 5.0 mmol/L [facility] Comment: Please note: ??Patients with [...] MD CHEMISTRY ORDERABLE S Performing Organization Address [facility] Co de Phone Number [facility] [place] [address] * POCT Glucose (02/18/2024 8:24 AM EDT) Glucose, POC 157 65 - 199 mg/dL [facility] Comment: Supplemental ranges: <140 mg/dL before meals <180 mg/dL all other times of the day Blood 02/18/2024 8:24 AM EDT 02/18/2024 8:24 AM EDT Hayder Graham MD POINT OF C[place] [address] * Scan, Peripheral Blood (02/18/2024 1:40 AM EDT) Pathologist [facility] Plat estimate Decreased [facility] RBC Morphology Normal [facility] Blood 02/18/2024 1:40 AM EDT 02/18/2024 1:56 AM EDT Narrative Resulting Agency Comment Spec In Lab Neftali FRENCH HEMATOLOGY ORDER OLE Performing Organization Address City/[facility]/ZIP Co de Phone Number [facility] [place] [address] * (ABNORMAL) Differential, Automated (02/18/2024 1:40 AM EDT) [facility] Neutrophil % 87.1 % [facility] Neutrophil Absolute 15.03(H) 1.70 - 6.10 x10(3)/mc L [facility] Lymph % 3.0 % [facility] Lymphocytes Abs 0.5(L) 0.9 - 3.2 x10(3)/mc L [facility] Monocyte % 9.1 % [facility] Monocyte Abs 1.6(H) 0.3 - 0.9 x10(3)/mc L [facility] Eos % 0.0 % [facility] Eosinophils Abs 0.0 0.0 - 0.4 x10(3)/mc L [facility] Basophil % 0.2 % [facility] Baso Absolute 0.0 0.0 - 0.1 x10(3)/mc L [facility] Immature Gran % 0.60 % [facility] Comment: Immature granulocytes(IG's)percentage and absolute count will include metamyelocytes, myelocytes, and promyelocytes. Blood smears from CBCs yielding IG's will be scanned manually for concordance. If this scan disagrees with the automated IG or if promyelocytes are noted, a manual differential will be performed. Immature Gran Absolute 0.10(H) 0.00 - 0.04 x10(3)/ L [facility] Blood 02/18/2024 1:40 AM EDT 02/18/2024 1:56 AM EDT Narrative Resulting Agency Comment Spec In Lab Neftali FRENCH HEMATOLOGY ORDER OLE [facility] [place] [address] * (ABNORMAL) Hemogram (02/18/2024 1:40 AM EDT) White Blood Cell 17.2(H) 4.0 - 9.5 x10(3)/[facility] Red Blood Cell 4.71 4.58 - 5.54 x10(6)/[facility] Hemoglobin 13.7 13.7 - 16.5 g/dL [facility] Hematocrit 39.2(L) 40.5 - 48.5 % [facility] Mean Cell Volume 83.2 82.9 - 93.1 [facility] Mean Cell Hemoglobin 29.1 27.5 - 32.[address] [facility] Mean Cell Hemoglobin Concentration 34.9 32.0 - 35.7 g/dL [facility] Platelet 147 145 - 357 x10(3)/mc L [facility] RDW Standard Deviation 39.9 36.0 - 45.0 [facility] RDW coefficient of variation 13.2 11.4 - 13.8 % [facility] Mean Platelet Volume 9.9 7.6 - 12.9 [facility] NRBC% auto 0.0 % [facility] NRBC Absolute 0.000 0.000 - 0.000 x10(3)/ L [facility] Blood 02/18/2024 1:40 AM EDT 02/18/2024 1:56 AM EDT Narrative Resulting Agency Comment Spec In Lab Neftali FRENCH HEMATOLOGY ORDER OLE [facility] [place] [address] * (ABNORMAL) Basic Metabolic Panel (non-fasting) (02/18/2024 1:40 AM EDT) Glucose 176 65 - 199 mg/dL [facility] Comment:Diabetes: >=200 mg/d L plus symptoms Blood Urea Nitrogen 10 10 - 20 mg/dL [facility] Creatinine 0.65(L) 0.80 - 1.50 mg/dL [facility] Sodium 135 135 - 145 mmol/L [facility] Potassium 4.2 3.5 - 5.0 mmol/L [facility] Comment: Please note: ??Patients with WBC >100,000 may have falsely elevated Potassium levels. ??For accurate Potassium quantification in these patients send serum separator tube (gold top) for subsequent determinations. ??Contact the Clinical Chemistry Laboratory if there are any questions. Chloride 106 98 - 107 mmol/L [facility] Carbon Dioxide 20(L) 22 - 31 mmol/L [facility] Anion Gap 9 5 - 15 mmol/L [facility] Calcium 7.6(L) 8.5 - 10.5 mg/dL [facility] Est Glomerular Filtration Rate 105 >=60 mL/min/1. 73 m?? [facility] Comment: This patient's estimated GFR [...] Lab Hayder Graham MD CHEMISTRY ORDERABLE S [facility] [place] [address] * (ABNORMAL) Troponin (02/18/2024 1:40 AM EDT) Troponin-T, High Sensitivity 342(H) <=22 ng/L [facility] Comment: This patient's troponin T [...] can be found in the [facility] Laboratory Test Catalog Troponin - [facility] Laboratory Test Catalog Reference: Fourth [place] Definition of Myocardial Infarction. Journal of the [place] [employer] 2018;72:2522-3150 Blood 02/18/2024 1:40 AM EDT 02/18/2024 1:56 AM EDT Narrative Resulting Agency Comment Spec In Lab Hayder Graham MD CHEMISTRY ORDERABLE S [facility] [place] [address] * POCT Glucose (02/17/2024 8:13 PM EDT) Glucose, POC 142 65 - 199 mg/dL [facility] Comment: Supplemental ranges: <140 mg/dL before meals <180 mg/dL all other times of the day Blood 02/17/2024 8:13 PM EDT 02/17/2024 8:13 PM EDT Hayder Graham MD POINT OF CARE TEST ORDERABLES Performing Organization Address [facility] Co de Phone Number [facility] [place] [address] * POCT Glucose (02/17/2024 5:42 PM EDT) Glucose, POC 160 65 - 199 mg/dL [facility] Comment: Supplemental ranges: <140 mg/dL before meals <180 mg/dL all other times of the day Blood 02/17/2024 5:42 PM EDT 02/17/2024 5:42 PM EDT Hayder Graham MD POINT OF CARE TEST ORDERABLES Performing Organization Address [facility] Co de Phone Number [facility] [place] [address] * Hemoglobin (02/17/2024 5:42 PM EDT) Hemoglobin 13.7 13.7 - 16.5 g/dL [facility] Blood 02/17/2024 5:42 PM EDT 02/17/2024 6:10 PM EDT Narrative Resulting Agency Comment Spec In Lab Hayder Graham MD HEMATOLOGY ORDERABL ES Performing Organization Address City/[facility]/ZIP Co de Phone Number [facility] [place] [address] * Potassium (02/17/2024 5:42 PM EDT) Potassium 4.3 3.5 - 5.0 mmol/L [facility] Comment: Please note: ??Patients with WBC >100,000 may have falsely elevated Potassium levels. ??For accurate Potassium quantification in these patients send serum separator tube (gold top) for subsequent determinations. ??Contact the Clinical Chemistry Laboratory if there are any questions. Blood 02/17/2024 5:42 PM EDT 02/17/2024 6:10 PM EDT Narrative Resulting Agency Comment Spec In Lab Hayder Graham MD CHEMISTRY ORDERABLE S [facility] [place] [address] * (ABNORMAL) BLOOD GAS 2 ARTERIAL (02/17/2024 4:18 PM EDT) pH, Arterial 7.34(L) 7.35 - 7.45 [facility] PCO2, Arterial 40 35 - [address] [facility] PO2, Arterial 78(L) 85 - [address] [facility] Bicarbonate, Arterial 20.8 20.0 - 26.0 mmol/L [facility] Base Excess, Arterial -5.1(L) -3.0 - 3.0 mmol/L [facility] Hgb Blood Gas 14.6 13.7 - 16.5 g/dL [facility] Oxyhemoglobin, Arterial 93.0(L) 94.0 - 97.0 % [facility] Carboxyhemoglob in, Arterial 0.3 % [facility] Comment: Nonsmokers: 0.5-1.5% COHB Smokers: Variable, but usually less than 10% Toxic: 20-30% COHB Lethal: Greater than 60% COHB Methemoglobin, Arterial 0.8 <=1.5 % [facility] Na Whole Blood 136 135 - 145 mmol/L [facility] K Whole Blood 4.1 3.5 - 5.0 mmol/L [facility] Comment: Please note: Patients with WBC >100,000 may have falsely elevated Potassium levels. Contact the Clinical Chemistry Laboratory if there are any questions. ICa Whole Blood 1.10(L) 1.15 - 1.33 mmol/L [facility] Comment: Note: ??Total bilirubin higher than 20 mg/dL may lead to falsely low ionized calcium. CL Whole Blood 105 98 - 107 mmol/L [facility] Gluc Whole Bld 159 65 - 199 mg/dL [facility] Comment:Diabetes: >=200 mg/d L plus symptoms. Lactate WB 1.2 0.5 - 2.2 mmol/L [facility] FIO2 Art 40 % [facility] PF Ratio Art 195 [facility] Blood 02/17/2024 4:18 PM EDT 02/17/2024 4:18 PM EDT Hayder Graham MD POINT OF CARE TEST ORDERABLES [facility] [place] [address] * XR Chest One View (02/17/2024 1:44 PM EDT) ROI² WORKSTATION ID [id number] RAD Anatomical Region Laterality Modality Chest N/A Digital Radiogra phy Impressions 02/17/2024 2:12 PM EDT 1. ??No definite pleural fluid collection or pneumothorax. 2. ??Right IJ [place] catheter tip terminates in a descending branch [...] questions please contact the health child care associate teacher that requested your imaging first. ? Electronically signed by: Denzel Hankins MD, [facility] ??([phone]), at 02/17/2024 2:12 PM Narrative 02/17/2024 2:12 PM EDT EXAMINATION: XR CHEST ONE VIEW CLINICAL HISTORY: s/p avr/cabg eval effusions TECHNIQUE: 1 view of the chest COMPARISON: Chest x-ray 01/09/2024, chest CT 02/03/2024 FINDINGS: ET tube tip terminates 5.2 cm above the carlos. Right IJ [place] catheter tip terminates in a descending branch [...] 5.2 cm above the carlos. Right IJ [place]-Ganzcatheter tip terminates in a descending branch of [...] fluid collection or pneumothorax. 2. Right IJ [place] catheter tip terminates in a descending branch ofthe right pulmonary artery. Suggest catheter retraction. 3. Additional support lines and tubes as above. Thank you for letting us participate in the care of this patient. If youare a health care provider and have any questions regarding this report,please contact the number below. For patients who have questions please contactthe health child care associate teacher that requested your imaging first. Hayder Graham MD IMG DX ORDERABLES * (ABNORMAL) BLOOD GAS 2 ARTERIAL (02/17/2024 1:31 PM EDT) pH, Arterial 7.35 7.35 - 7.45 [facility] PCO2, Arterial 39 35 - [address] [facility] PO2, Arterial 320(H) 85 - [address] [facility] Bicarbonate, Arterial 21.4 20.0 - 26.0 mmol/L [facility] Base Excess, Arterial -4.2(L) -3.0 - 3.0 mmol/L [facility] Hgb Blood Gas 14.1 13.7 - 16.5 g/dL [facility] Oxyhemoglobin, Arterial 97.9(H) 94.0 - 97.0 % [facility] Carboxyhemoglob in, Arterial 0.3 % [facility] Comment: Nonsmokers: 0.5-1.5% COHB Smokers: Variable, but usually less than 10% Toxic: 20-30% COHB Lethal: Greater than 60% COHB Methemoglobin, Arterial 0.7 <=1.5 % [facility] Na Whole Blood 137 135 - 145 mmol/L [facility] K Whole Blood 4.2 3.5 - 5.0 mmol/L [facility] Comment: Please note: Patients with WBC >100,000 may have falsely elevated Potassium levels. Contact the Clinical Chemistry Laboratory if there are any questions. ICa Whole Blood 1.13(L) 1.15 - 1.33 mmol/L [facility] Comment: Note: ??Total bilirubin higher than 20 mg/dL may lead to falsely low ionized calcium. CL Whole Blood 108(H) 98 - 107 mmol/L [facility] Gluc Whole Bld 136 65 - 199 mg/dL [facility] Comment:Diabetes: >=200 mg/d L plus symptoms. Lactate WB 1.1 0.5 - 2.2 mmol/L [facility] FIO2 Art 100 % [facility] PF Ratio Art 320 [facility] Blood 02/17/2024 1:31 PM EDT 02/17/2024 1:31 PM EDT Hayder Graham MD POINT OF CARE TEST ORDERABLES Performing Organization Address City/State/[facility] Co de Phone Number [facility] [place] [address] * (ABNORMAL) Coox2 (02/17/2024 1:21 PM EDT) pO2, Coox 44 mmHg [facility] Hgb Blood Gas 13.1(L) 13.7 - 16.5 g/dL [facility] Oxyhemoglobin, Coox 76.4 % [facility] Carboxyhemoglo bin, Coox 0.3 % [facility] Comment: Nonsmokers: 0.5-1.5% COHB Smokers: Variable, but usually less than 10% Toxic: 20-30% COHB Lethal: Greater than 60% COHB Methemoglobin, Coox 0.8 <=1.5 % [facility] Source Coox Mixed Venous [facility] Blood 02/17/2024 1:21 PM EDT 02/17/2024 1:21 PM EDT Hayder Graham MD POINT OF CARE TEST ORDERABLES [facility] [place] [address] * (ABNORMAL) BLOOD GAS 2 ARTERIAL (02/17/2024 12:14 PM EDT) pH, Arterial 7.39 7.35 - 7.45 [facility] PCO2, Arterial 40 35 - [address] [facility] PO2, Arterial 338(H) 85 - [address] [facility] Bicarbonate, Arterial 23.7 20.0 - 26.0 mmol/L [facility] Base Excess, Arterial -1.3 -3.0 - 3.0 mmol/L [facility] Hgb Blood Gas 11.0(L) 13.7 - 16.5 g/dL [facility] Oxyhemoglobin, Arterial 98.8(H) 94.0 - 97.0 % [facility] Carboxyhemoglob in, Arterial 0.3 % [facility] Comment: Nonsmokers: 0.5-1.5% COHB Smokers: Variable, but usually less than 10% Toxic: 20-30% COHB Lethal: Greater than 60% COHB Methemoglobin, Arterial 0.3 <=1.5 % [facility] Na Whole Blood 135 135 - 145 mmol/L [facility] K Whole Blood 5.1(H) 3.5 - 5.0 mmol/L [facility] Comment: Please note: Patients with WBC >100,000 may have falsely elevated Potassium levels. Contact the Clinical Chemistry Laboratory if there are any questions. ICa Whole Blood 1.13(L) 1.15 - 1.33 mmol/L [facility] Comment: Note: ??Total bilirubin higher than 20 mg/dL may lead to falsely low ionized calcium. CL Whole Blood 106 98 - 107 mmol/L [facility] Gluc Whole Bld 132 65 - 199 mg/dL [facility] Comment:Diabetes: >=200 mg/d L plus symptoms. Lactate WB 1.4 0.5 - 2.2 mmol/L [facility] Blood 02/17/2024 12:1 4 PM EDT 02/17/2024 12:14 PM EDT Hayder Graham MD POINT OF CARE TEST ORDERABLES Performing Organization Address [facility] Co de Phone Number [facility] [place] [address] * (ABNORMAL) Fibrinogen (02/17/2024 12:10 PM EDT) Fibrinogen 154(L) 200 - 393 mg/dL [facility] Comment: OR Result called by ?? LOMARL OR Results read back by: ? alondra pagan at 2024-02-17 12:41:48 A fibrinogen level >100 mg/dL is adequate for hemostasis in most patients without underlying bleeding disorders. Blood 02/17/2024 12:1 0 PM EDT 02/17/2024 12:19 PM EDT Narrative Resulting Agency Comment Spec In Lab Tara York MD HEMATOLOGY ORDERABLE S Performing Organization Address [facility] Co de Phone Number [facility] [place] [address] * (ABNORMAL) Thrombin time (02/17/2024 12:10 PM EDT) Thrombin Time 18(H) 10 - [address] [facility] Comment: OR Result called by [...] MD HEMATOLOGY ORDERABLE S Performing Organization Address [facility] Co de Phone Number [facility] [place] [address] * APTT (02/17/2024 12:10 PM EDT) Partial Thromboplastin Time 33 25 - [address] [facility] Comment: OR Result called by [...] MD HEMATOLOGY ORDERABLE S Performing Organization Address [facility] Co de Phone Number [facility] [place] [address] * (ABNORMAL) Prothrombin Time (02/17/2024 12:10 PM EDT) Prothrombin Time 16.7(H) 9.4 - 12.[address] [facility] Comment: OR Result called by ?? LOMARL OR Results read back by: ? alondra pagan at 2024-02-17 12:41:48 International Normalization Ratio 1.[address] [facility] Comment: OR Result called by [...] Lab Tara York MD HEMATOLOGY ORDERABLE S [facility] [place] [address] * (ABNORMAL) Hemogram (02/17/2024 12:10 PM EDT) White Blood Cell 11.1(H) 4.0 - 9.5 x10(3)/mc L [facility] Red Blood Cell 3.50(L) 4.58 - 5.54 x10(6)/mc L [facility] Hemoglobin 10.4(L) 13.7 - 16.5 g/dL [facility] Hematocrit 30.2(L) 40.5 - 48.5 % [facility] Comment: This result has been called to ALONDRA PAGAN by Eddie López on 02 17 2024 at 1226, and has been read back. Mean Cell Volume 86.3 82.9 - 93.[address] [facility] Mean Cell Hemoglobin 29.7 27.5 - 32.[address] [facility] Mean Cell Hemoglobin Concentration 34.4 32.0 - 35.7 g/dL [facility] Platelet 118(L) 145 - 357 x10(3)/mc L [facility] RDW Standard Deviation 40.2 36.0 - 45.[address] [facility] RDW coefficient of variation 12.8 11.4 - 13.8 % [facility] Mean Platelet Volume 9.5 7.6 - 12.[address] [facility] NRBC% auto 0.0 % [facility] [facility] NRBC Absolute 0.000 0.000 - 0.000 x10(3)/mc L [facility] Blood 02/17/2024 12:1 0 PM EDT 02/17/2024 12:19 PM EDT Narrative Resulting Agency Comment Spec In Lab Tara York MD HEMATOLOGY ORDERABLE S [facility] [place] [address] * (ABNORMAL) BLOOD GAS 2 ARTERIAL (02/17/2024 11:43 AM EDT) pH, Arterial 7.38 7.35 - 7.45 [facility] PCO2, Arterial 40 35 - [address] [facility] PO2, Arterial 304(H) 85 - [address] [facility] Bicarbonate, Arterial 23.2 20.0 - 26.0 mmol/L [facility] Base Excess, Arterial -1.9 -3.0 - 3.0 mmol/L [facility] Hgb Blood Gas 11.1(L) 13.7 - 16.5 g/dL [facility] Oxyhemoglobin, Arterial 98.6(H) 94.0 - 97.0 % [facility] Carboxyhemoglob in, Arterial 0.3 % [facility] Comment: Nonsmokers: 0.5-1.5% COHB Smokers: Variable, but usually less than 10% Toxic: 20-30% COHB Lethal: Greater than 60% COHB Methemoglobin, Arterial 0.3 <=1.5 % [facility] Na Whole Blood 133(L) 135 - 145 mmol/L [facility] K Whole Blood 6.2(Critic al) 3.5 - 5.0 mmol/L [facility] Comment: Noted by hearing instrument specialist. Please note: Patients with WBC >100,000 may have falsely elevated Potassium levels. Contact the Clinical Chemistry Laboratory if there are any questions. ICa Whole Blood 0.97(L) 1.15 - 1.33 mmol/L [facility] Comment: Note: ??Total bilirubin higher than 20 mg/dL may lead to falsely low ionized calcium. CL Whole Blood 104 98 - 107 mmol/L [facility] Gluc Whole Bld 128 65 - 199 mg/dL [facility] Comment:Diabetes: >=200 mg/d L plus symptoms. Lactate WB 1.1 0.5 - 2.2 mmol/L [facility] Blood 02/17/2024 11:4 3 AM EDT 02/17/2024 11:43 AM EDT Hayder Graham MD POINT OF CARE TEST ORDERABLES [facility] [place] [address] * (ABNORMAL) BLOOD GAS 2 ARTERIAL (02/17/2024 11:08 AM EDT) pH, Arterial 7.38 7.35 - 7.45 [facility] PCO2, Arterial 38 35 - [address] [facility] PO2, Arterial 334(H) 85 - [address] [facility] Bicarbonate, Arterial 22.0 20.0 - 26.0 mmol/L [facility] Base Excess, Arterial -3.2(L) -3.0 - 3.0 mmol/L [facility] Hgb Blood Gas 10.8(L) 13.7 - 16.5 g/dL [facility] Oxyhemoglobin, Arterial 98.7(H) 94.0 - 97.0 % [facility] Carboxyhemoglob in, Arterial 0.3 % [facility] Comment: Nonsmokers: 0.5-1.5% COHB Smokers: Variable, but usually less than 10% Toxic: 20-30% COHB Lethal: Greater than 60% COHB Methemoglobin, Arterial 0.3 <=1.5 % [facility] Na Whole Blood 131(L) 135 - 145 mmol/L [facility] K Whole Blood 6.4(Critic al) 3.5 - 5.0 mmol/L [facility] Comment: Noted by hearing instrument specialist. Please note: Patients with WBC >100,000 may have falsely elevated Potassium levels. Contact the Clinical Chemistry Laboratory if there are any questions. ICa Whole Blood 0.98(L) 1.15 - 1.33 mmol/L [facility] Comment: Note: ??Total bilirubin higher than 20 mg/dL may lead to falsely low ionized calcium. CL Whole Blood 104 98 - 107 mmol/L [facility] Gluc Whole Bld 127 65 - 199 mg/dL [facility] Comment:Diabetes: >=200 mg/d L plus symptoms. Lactate WB 1.0 0.5 - 2.2 mmol/L [facility] Blood 02/17/2024 11:0 8 AM EDT 02/17/2024 11:08 AM EDT Hayder Graham MD POINT OF CARE TEST ORDERABLES Performing Organization Address [facility] Co de Phone Number [facility] [place] [address] * (ABNORMAL) Hemoglobin and Hematocrit, blood (02/17/2024 11:04 AM EDT) Hemoglobin 9.6(L) 13.7 - 16.5 g/dL [facility] Hematocrit 28.0(L) 40.5 - 48.5 % [facility] Comment: This result has been called to ALONDRA PAGAN by Eddie López on 02 17 2024 at 1120, and has been read back. Blood 02/17/2024 11:0 4 AM EDT 02/17/2024 11:12 AM EDT Narrative Resulting Agency Comment Spec In Lab Hayder Graham MD HEMATOLOGY ORDERABL ES Performing Organization Address [facility]/ZIP Co de Phone Number [facility] [place] [address] * (ABNORMAL) Platelet count (02/17/2024 11:04 AM EDT) Platelet 106(L) 145 - 357 x10(3)/mc L [facility] Immature Plt % 1.6 0.0 - 7.4 % [facility] Comment: Limitation of the Immature Platelet Fraction (IPF)-May be less reliable when the platelet count is less than 76h471/uL due to statistical imprecision. The IPF value [...] in a decreased state of production. References: [employer] The Clinical Value of the Immature Platelet Fraction (IPF) in Cell Recovery Document Number 10-1143 03/2011 [employer] The Role of the Immature Platelet Fraction (IPF) in the Differential Diagnosis of Thrombocytopenia, Document MKT-[id number] V002/15/14 Blood 02/17/2024 11:0 4 AM EDT 02/17/2024 11:12 AM EDT Narrative Resulting Agency Comment Spec In Lab Hayder Graham MD HEMATOLOGY ORDERABL ES Performing Organization Address City/State/[facility] Co de Phone Number [facility] [place] [address] * (ABNORMAL) Fibrinogen (02/17/2024 11:04 AM EDT) Fibrinogen 149(L) 200 - 393 mg/dL [facility] Comment: OR Result called by ?? SALVLT OR Results read back by: ? Alondra Pagan at 2024-02-17 11:30:47 A fibrinogen level >100 mg/dL is adequate for hemostasis in most patients without underlying bleeding disorders. Blood 02/17/2024 11:0 4 AM EDT 02/17/2024 11:12 AM EDT Narrative Resulting Agency Comment Spec In Lab Hayder Graham MD HEMATOLOGY ORDERABL ES [facility] [place] [address] * (ABNORMAL) BLOOD GAS 2 ARTERIAL (02/17/2024 10:41 AM EDT) pH, Arterial 7.37 7.35 - 7.45 [facility] PCO2, Arterial 44 35 - [address] [facility] PO2, Arterial 335(H) 85 - [address] [facility] Bicarbonate, Arterial 24.9 20.0 - 26.0 mmol/L [facility] Base Excess, Arterial -0.4 -3.0 - 3.0 mmol/L [facility] Hgb Blood Gas 11.5(L) 13.7 - 16.5 g/dL [facility] Oxyhemoglobin, Arterial 98.9(H) 94.0 - 97.0 % [facility] Carboxyhemoglob in, Arterial 0.1 % [facility] Comment: Nonsmokers: 0.5-1.5% COHB Smokers: Variable, but usually less than 10% Toxic: 20-30% COHB Lethal: Greater than 60% COHB Methemoglobin, Arterial 0.3 <=1.5 % [facility] Na Whole Blood 132(L) 135 - 145 mmol/L [facility] K Whole Blood 5.9(H) 3.5 - 5.0 mmol/L [facility] Comment: Please note: Patients with WBC >100,000 may have falsely elevated Potassium levels. Contact the Clinical Chemistry Laboratory if there are any questions. ICa Whole Blood 1.02(L) 1.15 - 1.33 mmol/L [facility] Comment: Note: ??Total bilirubin higher than 20 mg/dL may lead to falsely low ionized calcium. CL Whole Blood 104 98 - 107 mmol/L [facility] Gluc Whole Bld 129 65 - 199 mg/dL [facility] Comment:Diabetes: >=200 mg/d L plus symptoms. Lactate WB 1.1 0.5 - 2.2 mmol/L [facility] Blood 02/17/2024 10:4 1 AM EDT 02/17/2024 10:41 AM EDT Hayder Graham MD POINT OF CARE TEST ORDERABLES [facility] [place] [address] * (ABNORMAL) BLOOD GAS 2 ARTERIAL (02/17/2024 10:06 AM EDT) pH, Arterial 7.38 7.35 - 7.45 [facility] PCO2, Arterial 42 35 - [address] [facility] PO2, Arterial 329(H) 85 - [address] [facility] Bicarbonate, Arterial 24.7 20.0 - 26.0 mmol/L [facility] Base Excess, Arterial -0.3 -3.0 - 3.0 mmol/L [facility] Hgb Blood Gas 11.0(L) 13.7 - 16.5 g/dL [facility] Oxyhemoglobin, Arterial 99.0(H) 94.0 - 97.0 % [facility] Carboxyhemoglob in, Arterial 0.3 % [facility] Comment: Nonsmokers: 0.5-1.5% COHB Smokers: Variable, but usually less than 10% Toxic: 20-30% COHB Lethal: Greater than 60% COHB Methemoglobin, Arterial 0.3 <=1.5 % [facility] Na Whole Blood 132(L) 135 - 145 mmol/L [facility] K Whole Blood 6.0(H) 3.5 - 5.0 mmol/L [facility] Comment: Please note: Patients with WBC >100,000 may have falsely elevated Potassium levels. Contact the Clinical Chemistry Laboratory if there are any questions. ICa Whole Blood 0.97(L) 1.15 - 1.33 mmol/L [facility] Comment: Note: ??Total bilirubin higher than 20 mg/dL may lead to falsely low ionized calcium. CL Whole Blood 102 98 - 107 mmol/L [facility] Gluc Whole Bld 123 65 - 199 mg/dL [facility] Comment:Diabetes: >=200 mg/d L plus symptoms. Lactate WB 1.1 0.5 - 2.2 mmol/L [facility] Blood 02/17/2024 10:0 6 AM EDT 02/17/2024 10:06 AM EDT Hayder Graham MD POINT OF CARE TEST ORDERABLES [facility] [place] [id number] * Surgical Pathology Report (02/17/2024 10:01 AM EDT) Final Diagnosis [id number] ? Location: [facility]; [facility]; The signing pathologist has (i) examined the relevant preparation(s) for the specimen(s) and (ii) rendered or confirmed the diagnosis(es). . ?Surgical Pathology DIAGNOSIS Aortic valve leaflets, excision: Valve leaflets with myxoid degeneration, nodular fibrosis and dystrophic calcifications. Electronically signed by: ?Livier Montoya MD Verified: ??02/24/2024 13:49 ??Pathologist Performed at: ??-[facility] Dept. of Pathology, [place] [address] Strip Winder: Job Brewer MD, FCAP, ??IA Certificate: [id number] SPECIMEN(S) SUBMITTED A - Aortic Valve Leaflets, [...] Sections Processing Blocks submitted for decalcification: A1. Microfilm Operator sections in 1 cassette labeled A1. ??ajw 02/24/2024 1:[address] [facility] AORTIC STRUCTURE / Unknown 02/17/2024 10:01 AM EDT 02/17/2024 10:01 AM EDT Hayder Graham MD PATHOLOGY/CYTOLOGY ORDERABLES [facility] [place] [address] * Specimen to Pathology (02/17/2024 10:01 AM EDT) AP Specimen 02/17/2024 10:0 1 AM EDT 02/17/2024 10:[address] [facility] - 02/17/2024 10:01 AM EDT Specimen requisition ordered. ??Separate Pathology report to follow Hayder Graham MD PATHOLOGY/CYTOLOGY ORDERABLES [facility] [place] [address] * (ABNORMAL) BLOOD GAS 2 ARTERIAL (02/17/2024 9:35 AM EDT) pH, Arterial 7.33(L) 7.35 - 7.45 [facility] PCO2, Arterial 35 35 - [address] [facility] PO2, Arterial 318(H) 85 - [address] [facility] Bicarbonate, Arterial 17.9(L) 20.0 - 26.0 mmol/L [facility] Base Excess, Arterial -8.0(L) -3.0 - 3.0 mmol/L [facility] Hgb Blood Gas 11.0(L) 13.7 - 16.5 g/dL [facility] Oxyhemoglobin, Arterial 98.8(H) 94.0 - 97.0 % [facility] Carboxyhemoglob in, Arterial 0.3 % [facility] Comment: Nonsmokers: 0.5-1.5% COHB Smokers: Variable, but usually less than 10% Toxic: 20-30% COHB Lethal: Greater than 60% COHB Methemoglobin, Arterial 0.3 <=1.5 % [facility] Na Whole Blood 131(L) 135 - 145 mmol/L [facility] K Whole Blood 5.8(H) 3.5 - 5.0 mmol/L [facility] Comment: Please note: Patients with WBC >100,000 may have falsely elevated Potassium levels. Contact the Clinical Chemistry Laboratory if there are any questions. ICa Whole Blood 0.98(L) 1.15 - 1.33 mmol/L [facility] Comment: Note: ??Total bilirubin higher than 20 mg/dL may lead to falsely low ionized calcium. CL Whole Blood 101 98 - 107 mmol/L [facility] Gluc Whole Bld 122 65 - 199 mg/dL [facility] Comment:Diabetes: >=200 mg/d L plus symptoms. Lactate WB 0.8 0.5 - 2.2 mmol/L [facility] Blood 02/17/2024 9:35 AM EDT 02/17/2024 9:35 AM EDT Hayder Graham MD POINT OF CARE TEST ORDERABLES [facility] [place] [address] * (ABNORMAL) BLOOD GAS 2 VENOUS (02/17/2024 9:34 AM EDT) pH, Venous 7.22(Criti marquez) 7.32 - 7.42 [facility] Comment:Noted by hearing instrument specialist. PCO2, Venous 43 41 - [address] [facility] Comment:Noted by hearing instrument specialist. PO2, Venous 57(H) 25 - [address] [facility] Comment:Noted by hearing instrument specialist. Bicarbonate, Venous 17.1 mmol/L [facility] Comment:Noted by hearing instrument specialist. Base Excess, Venous -10.6 mmol/L [facility] Comment:Noted by hearing instrument specialist. Hgb Blood Gas 11.2(L) 13.7 - 16.5 g/dL [facility] Comment:Noted by hearing instrument specialist. Oxyhemoglobin, Venous 86.5 % [facility] Comment:Noted by hearing instrument specialist. Carboxyhemoglob in, Venous 0.3 % [facility] Comment: Noted by hearing instrument specialist. Nonsmokers: 0.5-1.5% COHB Smokers: Variable, but usually less than 10% Toxic: 20-30% COHB Lethal: Greater than 60% COHB Methemoglobin, Venous 0.0 <=1.5 % [facility] Comment:Noted by hearing instrument specialist. Na Whole Blood 156(H) 135 - 145 mmol/L [facility] Comment:Noted by hearing instrument specialist. K Whole Blood 5.5(H) 3.5 - 5.0 mmol/L [facility] Comment: Noted by hearing instrument specialist. Please note: Patients with WBC >100,000 may have falsely elevated Potassium levels. Contact the Clinical Chemistry Laboratory if there are any questions. ICa Whole Blood 1.03(L) 1.15 - 1.33 mmol/L [facility] Comment: Noted by hearing instrument specialist. Note: ??Total bilirubin higher than 20 mg/dL may lead to falsely low ionized calcium. CL Whole Blood 100 98 - 107 mmol/L [facility] Comment:Noted by hearing instrument specialist. Gluc Whole Bld 132 65 - 199 mg/dL [facility] Comment: Noted by hearing instrument specialist. Diabetes: >=200 mg/dL plus symptoms Lactate WB 1.0 0.5 - 2.2 mmol/L [facility] Comment:Noted by hearing instrument specialist. Blood Gas Source Venous [facility] Blood 02/17/2024 9:34 AM EDT 02/17/2024 9:34 AM EDT Hayder Graham MD POINT OF CARE TEST ORDERABLES [facility] [place] [address] * (ABNORMAL) BLOOD GAS 2 ARTERIAL (02/17/2024 8:07 AM EDT) pH, Arterial 7.43 7.35 - 7.45 [facility] PCO2, Arterial 34(L) 35 - [address] [facility] PO2, Arterial 581(H) 85 - [address] [facility] Bicarbonate, Arterial 21.7 20.0 - 26.0 mmol/L [facility] Base Excess, Arterial -2.6 -3.0 - 3.0 mmol/L [facility] Hgb Blood Gas 14.5 13.7 - 16.5 g/dL [facility] Oxyhemoglobin, Arterial 99.0(H) 94.0 - 97.0 % [facility] Carboxyhemoglob in, Arterial 0.4 % [facility] Comment: Nonsmokers: 0.5-1.5% COHB Smokers: Variable, but usually less than 10% Toxic: 20-30% COHB Lethal: Greater than 60% COHB Methemoglobin, Arterial 0.3 <=1.5 % [facility] Na Whole Blood 139 135 - 145 mmol/L [facility] K Whole Blood 4.0 3.5 - 5.0 mmol/L [facility] Comment: Please note: Patients with WBC >100,000 may have falsely elevated Potassium levels. Contact the Clinical Chemistry Laboratory if there are any questions. ICa Whole Blood 1.09(L) 1.15 - 1.33 mmol/L [facility] Comment: Note: ??Total bilirubin higher than 20 mg/dL may lead to falsely low ionized calcium. CL Whole Blood 106 98 - 107 mmol/L [facility] Gluc Whole Bld 100 65 - 199 mg/dL [facility] Comment:Diabetes: >=200 mg/d L plus symptoms. Lactate WB 1.3 0.5 - 2.2 mmol/L [facility] Blood 02/17/2024 8:07 AM EDT 02/17/2024 8:07 AM EDT Hayder Graham MD POINT OF CARE TEST ORDERABLES Performing Organization Address [facility] Co de Phone Number [facility] [place] [address] * POCT Glucose (02/17/2024 6:38 AM EDT) Glucose, POC 98 65 - 199 mg/dL [facility] Comment: Supplemental ranges: <140 mg/dL before meals <180 mg/dL all other times of the day Blood 02/17/2024 6:38 AM EDT 02/17/2024 6:38 AM EDT Hayder Graham MD POINT OF CARE TEST ORDERABLES Performing Organization Address [facility] Co de Phone Number [facility] [place] [address] * Transesophageal Echo/OR (02/17/2024 6:33 AM EDT) [...] [facility] and post-operative evaluation of cardiac function [...] Atrial Fibrillation 0821 (Given - Provider: Reilly iVncent RN)2057 (Given - Provider: Polo Britton RN) 0907 (Given - Provider: Mishel Merrill RN)2115 (Given - Provider: Otis Crook RN) 0836 [...] RN) 09 (Given - Provider: Mishel Merrill RN)2116 (Given - Provider: Otis Crook RN) 0843 (Given - Provider: Jazlyn Maldonado RN) dorzolamide (Trusopt) 2 % ophthalmic solution 1 drop 1 drop, Both Eyes, 3 TIMES DAILY, First dose on Sat02/18/24 at 0930, Until Discontinued, Routine 0824 (Given - Provider: Reilly Vincent RN)1408 (Given - Provider: Ingrid Menjivar RN)2056 (Given - Provider: Polo Britton RN) 09 (Given - Provider: Mishel Merrill RN)1500 (Given - Provider: Mishel Merrill RN)211 (Given - Provider: Otis Crook RN) 0836 (Given - Provider: Jazlyn Maldonado RN) lidocaine (Lidoderm) 5% patch 1 patch 1 patch, Transdermal, Administer over 12 Hours, DAILY, First dose on Sat02/18/24 at 1445, Until Discontinued, Apply patch(es) for 12 hours, and then remove for 12 hours., Routine 08 (Patch Applied - Provider: Reilly Vincent RN)2021 (Patch Removed - Provider: Polo Britton RN) 09 (Patch Applied - Provider: Mishel Merrill, RN)2107 (Patch Removed - Provider: Otis Crook, [...] Mishel Merrill, RN)2114 (Given - Provider: Otis Crook, COLBY) [...] Vincent RN) 09 (Given - Provider: Mishel Merrill, COLBY) 0835 [...] refused) 2100 (Not Given - Provider: Otis Croko RN - Reason: Patient/family refused) sodium chloride 0.9 % (flush) (BD PosiFlush Normal Saline 0.9) flush 5 mL 5 mL, Intravenous, EVERY 8 HOURS, First dose on Sat02/18/24 at 0930, Until Discontinued, Routine 0130 (Given - Provider: Polo Britton RN)0930 (Given - Provider: Reilly Vincent RN)1708 (Given - Provider: Ingrid Menjivar, COLBY) 0130 (Given - Provider: Polo Britton RN)0908 (Given - Provider: Mishel Merrill, COLBY)1701 (Given - Provider: Mishel Merrill, COLBY)2325 (Given - Provider: Otis Crook, COLBY) 0930 (Not Given - Provider: Jazlyn Maldonado, COLBY - Reason: Patient/family refused - Comment: d/c today) tamsulosin (Flomax) capsule 0.4 mg 0.4 mg, Oral, DAILY, First dose on Sat02/18/24 at 0930, Until Discontinued, DO NOT CRUSH OR CHEW, Routine 0821 (Given - Provider: Reilly Vincent RN) 0907 (Given - Provider: Mishel Merrill RN) 0836 (Given - Provider: Jazlyn Maldonado, RN) timoloL (Timoptic) 0.5 % ophthalmic solution 1 drop 1 drop, Both Eyes, DAILY, First dose on Sat02/18/24 at 0930, Until Discontinued, Routine 0823 (Given - Provider: Reilly Vincent, RN) 0908 (Given - Provider: Mishel Merrill, RN) 0839 (Given - Provider: Jazlyn Maldonado, RN) Continuous Medication Order 02/22/2024 02/23/2024 02/24/2024 dextrose 5% and sodium chloride 0.45% infusion (CANCELED) 50 mL/hr, Intravenous, CONTINUOUS, Starting on Sat02/21/24 at 1015, Until Sat02/23/24 at 0847 0128 (New Bag - Provider: Polo Britton RN)1830 (New Bag - Provider: Reilly Vincent, COLBY) 0900 (Stopped - Provider: Mishel Merrill, COLBY) [...] Polo Britton RN)0817 (Given - Provider: Reilly Vincent, COLBY)1409 (Given [...] Routine documented in this encounter Care Teams Casing Worker Relationship Specialty Start Date End Date Aparna Jordan APRN PCP - General Family Medicine 10/21/23 documented as of this encounter
--- OUTSIDE RECORDS SUMMARY | 2024-05-11 08:14 | XMS_ITS | Encounter Summary ---
Author Organization [facility] Address [facility] Ivana linaerseileen [place] [id number] Care Team Providers Care Communications Intern Name Role Phone Vanessa Christian MAURI Primary Care Provider [phone] Reason for Referral * Consultation (Routine) - Closed Specialty Diagnoses / Procedures Referred By Contac t Referred To Contact Cardiac Surgery Diagnoses Nonrheumatic aortic valve stenosis significant - TAVR ( defers to Card Surg d/t age) Errol Loya MD [facility] [place] [address] Zak Farmer MD [facility] [place] [address] Referral ID Status Reason Start Date Expiration Date V isits Requested Visits Authorized [id number] Closed Consult, Test & Treat 10/21/2023 10/20/2024 1 1 Reason for Visit * Reason Comments Chest Pain Shortness of Breath Aortic Stenosis Encounter Details Date Type Department Care Team (Late st Contact Info) Description 10/21/2023 1:20 PM EST Office Visit Cardiology at [address] [phone] Errol Loya MD [facility] [place] [address] Nonrheumatic aortic valve stenosis Social History Tobacco [...] Problem List Diagnosis Aortic stenosis 12/2022 TTE ([facility]): VITA 0.8-0.9 cm2 (MG 28 mmHg, DOI 3.6 m/s, SVI 35 cc/m2). Trace regurgitation. Normal bi-v s/f, no other valve findings Gastroesophageal reflux Nevus of face Right judaism Hypertension HLD (hyperlipidemia) MEDICATIONS: Current Outpatient Medications [...] the meantime will refer to SHT at [facility] for further evaluation. Logistics and preliminary review [...] the meantime will refer to SHT at [facility] for further evaluation. Logistics and preliminary review [...] AM EDT Office Visit Cardiology at [address] [place] [address] Errol Loya MD [facility] [place] [address] Scheduled Referrals Name Type Priority Associated Diagnoses Order Schedule Amb Referral to Structural Heart Outpatient Referral Routine Nonrheumatic aortic valve stenosis Ordered: 10/21/2023 documented as of this encounter Visit Diagnoses Diagnosis Nonrheumatic aortic valve stenosis Aortic valve disorders documented in this encounter Care Teams Communications Intern Relationship Specialty Start Date End Date Vanessa Christian APRN PCP - General Family Medicine 10/21/23 documented as of this encounter
--- OUTSIDE RECORDS SUMMARY | 2024-05-11 08:14 | XMS_ITS | Data Portability ---
Author Organization [place] - [facility] Address [address] [place] [address] Care Team Providers Care Workday Financials Consultant Name Role Phone VANESSA JORDAN Primary Care Provider [phone] Assessment No assessment recorded. Plan of Treatment Reminders Order Date Submit Date Provider Last Modified By Organization Details Last Modified Time Details Appointments None recorded . Lab magnesiu m, serum or plasma 024 12/18/19 24 [facility] (Registration ), [address] [place] [address] [place], [address], 4 14:25:25 BMP, serum or plasma 024 12/18/19 24 [email or web address] [facility] (Registration ), [address] [place] [address] [place], [address], 4 14:25:24 Referral None recorded . Procedures None recorded . Surgeries None recorded . Imaging None recorded . Medication Orders None recorded . Patient TargetsNo targets recorded. Patient Instructions Encounter Date Encounter Id Patient Instructions Last Modified By Organization Details Last Modified Time 09/19/2023 [id number] SCHEDULE FOLLOW UP IN 3 MONTHS IF YOU DONT HEAR FROM THE CARDIOLOGY DEPT THIS WEEK CALL [facility] AND LET THEM KNOW IF YOUR BREATHING GETS WORSE- GO TO THE ER, DONT OVER DO THINGS PHYSICALLY EXPECT A CALL FROM SARA ZAFAR RE: UPDATING YOUR POWER OF DISPOSITION CLERK (NEED 2 WITNESSED SIGNATURES) Not available 09/19/2023 09:25:07 12/18/2023 [id number] Karlos: expect a call from the STructural heart team at [facility] drink at least 6 glasses of water a day. checking kidney function and magnesium labs today will mail home. follow up in 3 months for BPH, Aortic stenosis. 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 for Referral Establishment Guide Referral for Roland ateral hearing loss Referring Physician: Vanessa Jordan, Family Medicine, Encounter Date: 02/26/2024 Results Created Date Observation Date Name Description Value Unit Range Abnormal Flag LastModifiedBy Organization Detail LastModifiedTime 12/18/1912/18/2023 LASIC METAB OLIC PANEL calcium 9.3 mg/dL 8.5-10 .1 normal Not Available [address] [place], [address] 12/18/2023 17:09:55 12/18/1912/18/2023 LASIC METAB OLIC PANEL glucose 90 mg/dL 74-106 normal Not Available [address] [place], [address] 12/18/2023 17:09:55 12/18/19 24 12/18/2023 LASIC METAB OLIC PANEL BUN 14 mg/dL 7-18 normal Not Available [address] [place], [address] 12/18/2023 17:09:55 12/18/19 24 12/18/2023 LASIC METAB OLIC PANEL creatinine 1.0 mg/dL 0.70-1 .30 normal Not Available [address] [place], [address] 12/18/2023 17:09:55 12/18/19 24 12/18/2023 LASIC METAB OLIC PANEL estimated GFR 84.05 mL/min /1.73m 2 Not Available [address] [place], [address] 12/18/2023 17:09:55 12/18/19 24 12/18/2023 LASIC METAB OLIC PANEL sodium 139 mmol/ L 136-14 5 normal Not Available [address] [place], [address] 12/18/2023 17:09:55 12/18/19 24 12/18/2023 LASIC METAB OLIC PANEL potassium 4.9 mmol/ L 3.5-5. 1 normal Not Available [address] [place], [address] 12/18/2023 17:09:55 12/18/19 24 12/18/2023 LASIC METAB OLIC PANEL chloride 104 mmol/ L 98-107 normal Not Available [address] [place], [address] 12/18/2023 17:09:55 12/18/19 24 12/18/2023 LASIC METAB OLIC PANEL CO2 30.9 mmol/ L 21.0-3 2.0 normal Not Available [address] [place], [address] 12/18/2023 17:09:55 12/18/19 24 12/18/2023 LASIC METAB OLIC PANEL anion gap 4.1 mmol/ L 3-11 normal Not Available [address] [place], [address] 12/18/2023 17:09:55 12/18/19 24 12/18/2023 MAGNE SIUM magnesium 1.8 mg/dL 1.8-2. 4 normal Not Available [address] [place], [address] 12/18/2023 17:09:56 09/11/2012/05/2022 trans -thor acic echoc ardio gram (TTE) (PROC ) No observ ation record ed. [email or web address] [facility] Xray [address] , [place], [address], 09/13/2023 09:29:52 09/11/20 23 06/01/2022 XR, hip, unila teral No observ ation record ed. [email or web address] Not Available 09/13/2023 09:29:19 09/11/20 23 12/06/2019 US, echoc ardio gram No observ ation record ed. [email or web address] [facility]- Cardiology [address] [place] [address] [place], [address], 09/13/2023 09:28:49 Result Notes None recorded. Problems Name Status Onset Date Resolution Date Notes Provider Name and Address Organization Details Recorded Time Gastroesophageal reflux disease without esophagitis Active 2022 Problem Code: K21.9; Problem Code Type: ICD-10; Not Available [facility] 4 05:35:57 Glaucoma Active 2022 Problem Code: H40.9; Problem Code Type: ICD-10; Not Available [facility] 4 05:35:57 Hyperlipidemia Active 2022 Problem Code: E78.5; Problem Code Type: ICD-10; Not Available [facility] 4 05:35:57 Essential hypertension Active 2022 Problem Code: I10; Problem Code Type: ICD-10; Not Available [facility] 4 05:35:57 Pain of left hip joint Active 2022 Problem Code: M25.552; Problem Code Type: ICD-10; Not Available [facility] 4 05:35:57 Idiopathic osteoarthritis Active 2022 Problem Code: M16.12; Problem Code Type: ICD-10; Not Available [facility] 4 05:35:57 Inguinal hernia Active 2022 Problem Code: K40.90; Problem Code Type: ICD-10; Not Available [facility] 4 05:35:57 Heart murmur Active 2022 Problem Code: R01.1; Problem Code Type: ICD-10; Not Available [facility] 4 05:35:57 Dyspnea Active 2022 Problem Code: R06.09; Problem Code Type: ICD-10; Not Available [facility] 4 05:35:57 Chest pain Active 2022 Problem Code: R07.89; Problem Code Type: ICD-10; Not Available [facility] 4 05:35:57 Melanocytic nevus Active 2022 Problem Code: D22.9; Problem Code Type: ICD-10; Not Available [facility] 4 05:35:57 Aortic stenosis, non-rheumatic Active 2022 Problem Code: I35.0; Problem Code Type: ICD-10; Not Available [facility] 4 05:35:58 Aortic stenosis, non-rheumatic Completed 202208/14/2023 Problem Code: I35.0; Problem Code Type: ICD-10; Not Available [facility] 4 05:35:58 Indigestion Active 2023 GLORIA CAMP LPN null, [facility] 4 08:48:57 Coronary artery bypass grafts x 3 Active 2023 Kelly Duran RN null, [facility] 4 10:30:01 At increased risk of atrial fibrillation Active [address], [facility] [address] , [facility] 4 13:52:01 Anemia Active [address], [facility] [address] [facility] 4 13:54:39 Problem Notes None recorded. Procedures Surgical History Date Name Laterality Status Provider Name and Address Organization Details Recorded Time 4 coronary artery bypass graft completed Hudson Reeder MA null, [facility] 03/04/2024 14:54:09 Imaging Results Imaging Date Name Status LastModified by Organization Details LastModified Time 12/05/2022 trans-thoracic echocardiogram (TTE) (PROC) completed [address] [facility] [address] [place], [place], [address], 09/13/2023 09:29:52 06/01/2022 XR, hip, unilateral [place] [address] Information not available 09/13/2023 09:29:19 12/06/2019 US, echocardiogram completed [address]- Cardiology [address] [facility] , [place], [address], 09/13/2023 09:28:49 Procedure Notes None recorded. Medical Equipment None Reported. Allergies No known drug allergies Medications Name Sig Start Date Stop Date Status Note LastModified by Organization Details LastModified Time multivita min tablet Take 1 tablet by mouth once a day active Not Available Not Available No t Available amoxicill in 500 mg capsule Take 4 capsules as needed by oral route as directed . active for dental procedur es. Take 1 hr prior. Started by [facility]. Not Available Not Available Not Available doxycycli [...] BY MOUTH DAILY 02/24 completed stopped by [facility] Not Available Not Available Not Available brimonidi [...] hours by oral route as needed. active [facility] Not Available Not Available No t Available Aspirin Childrens 81 mg chewable tablet Take 1 tablet by mouth once a day active Not Available Not Available No t Available lisinopri l 5 mg tablet TAKE 1 TABLET BY MOUTH EVERY DAY 02/24 completed stopped by [facility] Not Available Not Available Not Available mupirocin [...] day by oral route. active started by [facility] Not Available Not Available Not Available dorzolami de 2 % (PF) eye drops 1 drop both eyes bid 12/17 completed Not Available Not Available Not Available Vitals Date Recorded Body weight Body mass index (BMI) Body height Heart rate Systolic blood pressure Diastolic blood pressure Provider Name and Address Organization Details Last Updated DateTime 3 41820.7 8 g 23.7 kg/m2 167.64 cm 64 /min 110 mm[Hg] 60 mm[Hg] GLORIA CAMP LPN [facility] 3 08:48:49 Date Recorded Body height Body mass index (BMI) Body weight Heart rate Systolic blood pressure Diastolic blood pressure Provider Name and Address Organization Details Last Updated DateTime 4 167.64 cm 24.6 kg/m2 51067.4 4 g 60 /min 112 mm[Hg] 80 mm[Hg] GLORIA CAMP LPN [facility] 4 08:38:13 Date Recorded Body height Body mass index (BMI) Body weight Heart rate Oxygen saturation Oxygen saturation in Arterial blood by Pulse oximetry Systolic blood pressure Diastolic blood pressure Provider Name and Address Organization Details Last Updated DateTime 4 167.64 cm 22.6 kg/m2 20614.6 5 g 63 /min 99 % 99 % 102 mm[Hg] 54 mm[Hg] Hudson Reeder MA [facility] 4 10:27:28 Social History Question Answer Notes LastModified by Organizat ion Details LastModified Time Tobacco Smoking Status Former Smoker Hudson Reeder MA [facility], [place] - [facility]. 03/06/2024 10:24:50 Do You Have An Advance Directive? Yes Registered 08/15/23 Updated 01/12/24 Information not available 01/15/2024 When Did You Quit Smoking? 11-15years sincelastc igarette [email or web address] Information not available 03/06/2024 Do You Have A Medical Power Of Recapper? Yes Received 08/30/23, Scanned. Copies Sent To [facility] And Patient 09/02/23. Information not available 09/02/2023 What Was The Date Of Your Most Recent Tobacco Screening? 03/06/2024 [email or web address] Information not available 03/06/2024 What Is Your Current Pack Years? 30ormorepa ckyears [email or web address] Information not available 03/06/2024 How Much Tobacco Do You Smoke? 1 PPD [email or web address] Information not available 03/06/2024 How Many Years Have You Smoked Tobacco? 40 [email or web address] Information not available 03/06/2024 Do You Or Have You Ever Used Any Other Forms Of Tobacco Or Nicotine? No [email or web address] Information not available 03/06/2024 Sex: Male Functional [...] Recorded Time Tdap 08/26/2013 completed Not Available [facility] 05:30:17 Td(adult) unspecified formulation 11/21/2022 completed Not Available [facility] 10/18/2023 05:30:17 COVID-19, mRNA, LNP-S, PF, 100 mcg/0.5mL dose or 50 mcg/0.25mL dose 01/24/2021 completed Not Available [facility] 10/18/19 05:30:18 COVID-19, mRNA, LNP-S, PF, 100 mcg/0.5mL dose or 50 mcg/0.25mL dose 02/21/2021 completed Not Available [facility] 10/18/19 05:30:18 COVID-19, mRNA, LNP-S, PF, 100 mcg/0.5mL dose or 50 mcg/0.25mL dose 09/11/2021 completed Not Available [facility] 10/18/19 05:30:18 influenza, unspecified formulation 07/26/2021 completed Not Available [facility] 10/18/2023 05:30:18 influenza, unspecified formulation 07/26/2022 completed Not Available [facility] 10/18/2023 05:30:18 influenza, unspecified formulation 07/28/2020 completed Not Available [facility] 10/18/2023 05:30:18 influenza, unspecified formulation 08/05/2019 completed Not Available [facility] 10/18/2023 05:30:18 influenza, unspecified formulation 08/12/2018 completed Not Available [facility] 10/18/2023 05:30:18 Past Encounters Encounter ID Performer Location Encounter Start Date Encounter Closed Date Diagnosis/Indication Diagnosis SNOMED-CT Code [id number] VANESSA JORDAN [address] [address] 09/19/2023 08:39:51 09/19/2023 09:17:42 Aortic valve stenosis 78972574 Essential hypertension 53537111 [id number] VANESSA JORDAN [address] [address] 12/18/2023 08:23:47 12/18/2023 09:29:09 Aortic stenosis, non-rheumatic 756655648 Essential hypertension 33875316 Nonulcer dyspepsia 37586 07 Cramp in lower leg 32107 5136 [id number] TATYANA LEDEZMA MD [address] [address] 03/06/2024 10:15:07 03/06/2024 11:14:28 Postoperative visit [id number] Aortic rosa m nosis, non-rheumatic 311736568 Stented co ronary artery 747637459 At [facility] risk of atrial fibrillation 423210476 Anemia 804944199 Health Concerns Section Related Observation LastModified by Organization Detai ls LastModified Time None Recorded Concern Status LastModified by Organization Details LastModified Time None Recorded Advance Directives Directive Y: Registered 08/15/23Updated 01/12/24 Payers Encounter Date Sequence Insurance Name Policy Number Policy Alicia Covered Member ID Alicia Member ID Guarantor Name 12/18/2023 1 [facility] [id number] Karlos C Patenaude [id number] Karlos C Patenaude 03/06/2024 1 [employer] [id number] Karlos C Patenaude [id number] Karlos C Patenaude Notes Date Note Type Note Provider Name and Address Organization Details Recorded Time 09/19/2023 text/html HPI Notes: 63-year-old man here for follow-up hypertension, severe aortic stenosis., He works full-time at [employer]. He lives at home with his dog. He has not heard from [facility] cardiology? referred mid-August. He did decrease his lisinopril to 5 mg, home SBPs running 110- 138, no change in slight lightheadedness with change position. He does continue to get dyspnea on exertion, denies chest pain, resolves fairly quickly no peripheral edema. 12/05/2022 [facility] transthoracic echocardiogram; there is moderate to severe aortic stenosis with disparate indicators. The calculated valve area is 0.8 cm2 is consistent with severe stenosis. Planimetry confirms valve area to 0.9 cm2. The mean gradient of 28 mmHg and peak velocity of 3.6M/S are consistent with moderate stenosis. There is trivial to mild aortic insufficiency. VANESSA JORDAN, AMRITA [address], [place], [address], [facility]. 09/19/2023 13:31:38 12/18/2023 text/html HPI Notes: 63-year-old man here for follow-up hypertension, severe aortic stenosis., He works full-time at [employer]. He lives at home with his dog. 12/05/2022 [facility] transthoracic echocardiogram; there is moderate to severe aortic stenosis with disparate indicators. The calculated valve area is 0.8 cm2 is consistent with severe stenosis. Planimetry confirms valve area to 0.9 cm2. The mean gradient of 28 mmHg and peak velocity of 3.6M/S are consistent with moderate stenosis. There is trivial to mild aortic insufficiency. Today 12/18/2023: unfortunately patient has not heard from the structural heart team that he was referred to in October from Dr. Ernandez, continues to get SOBE this occurs at home and at work? at home when he is walking uphill, now it is associated with chest pressure that resolves with rest within a minute or 2 of rest. He denies cough. He is a non-smoker (former smoker). He also reports longstanding reflux/dyspepsia has been using omeprazole for a number of years. It is well-controlled currently. He is asking if I can check on a hernia in his abdomen? he had a repair a number of years ago at [facility], it is starting to cause some discomfort. Reports leg cramps at nighttime intermittently, improves when he has a Gatorade during the daytime and Ovaltine in his coffee. VANESSA JORDAN, AMRITA [address], [place], [address], [facility], [facility]. 12/18/2023 11:43:00 03/06/2024 text/html HPI Notes: Ana Paula marlow is here today for a postop evaluation TATYANA LEDEZMA MD [address], [place], [address], [facility], [facility]. 03/08/2024 13:57:34
--- OUTSIDE RECORDS SUMMARY | 2024-05-11 08:14 | XMS_ITS | Encounter Summary ---
Author Organization [facility] [place] [address] Care Team Providers Care Fishery Biologist Name Role Phone Vanessa Christian APRN Primary Care Provider [phone] Encounter Details Date Type Department Care Team (Late st Contact Info) Description 10/21/2023 Abstract Cardiology at [address] [phone] Adam Mayes RN Social History Tobacco Use [...] 11:00 AM EDT Office Visit Cardiology at [address] [place] [address] Neftali Ernandez MD [facility] [place] [address] documented as of this encounter Visit Diagnoses Not on filedocumented in this encounter Care Teams Fishery Biologist Relationship Specialty Start Date End Date Vanessa Christian APRN PCP - General Family Medicine 10/21/23 documented as of this encounter
--- OUTSIDE RECORDS SUMMARY | 2024-05-11 08:14 | XMS_ITS | Continuity of Care Document ---
Author Organization [facility] Address [address] [place] [address] Care Team Providers Care Embossed Or Impressed Lettering Painter Name Role Phone VANESSA JORDAN Primary Care Provider Assessment No assessment recorded. Plan of Treatment Reminders Order Date Submit Date Provider Last Modified By Organization Details Last Modified Time Details Appointments None record ed. Lab None record ed. Referral None record ed. Procedures None record ed. Surgeries None record ed. Imaging None record ed. Medication Orders None record ed. Patient TargetsNo targets recorded. Patient InstructionsNo instructions recorded. Reason for Referral Assistant Financial Accountant Referral for Roland ateral hearing loss Referring [...] M16.12; Problem Code Type: ICD-10; Not Available [facility] 4 05:35:57 Inguinal hernia Active 2022 Problem Code: K40.90; Problem Code Type: ICD-10; Not Available [facility] 4 05:35:57 Heart murmur Active 2022 Problem Code: R01.1; Problem Code Type: ICD-10; Not Available [facility] 4 05:35:57 Dyspnea Active 2022 Problem Code: R06.09; Problem Code Type: ICD-10; Not Available [facility] 4 05:35:57 Chest pain Active 2022 Problem Code: R07.89; Problem Code Type: ICD-10; Not Available [facility] 4 05:35:57 Melanocytic nevus Active 2022 Problem Code: D22.9; Problem Code Type: ICD-10; Not Available [facility] 4 05:35:57 Aortic stenosis, non-rheumatic Active 2022 Problem Code: I35.0; Problem Code Type: ICD-10; Not Available [facility] 4 05:35:58 Aortic stenosis, non-rheumatic Completed 202208/14/2023 Problem Code: I35.0; Problem Code Type: ICD-10; Not Available [facility] 4 05:35:58 Indigestion Active 2023 GLORIA CAMP LPN null, [facility] 4 08:48:57 Coronary artery bypass grafts x 3 Active 2023 Kelly Duran RN null, [facility] 4 10:30:01 At increased risk of atrial fibrillation Active 2023 TATYANA LEDEZMA MD [address], [place], [address] , [facility]. 4 13:52:01 Anemia Active 2023 TATYANA LEDEZMA MD [address], [place], [address] , [facility] 13:54:39 Problem Notes None recorded. Procedures Surgical History Date Name Laterality Status Provider Name and Address Organization Details Recorded Time coronary artery bypass graft completed Hudson Reeder MA [facility], [facility] 03/04/2024 14:54:09 Imaging Results None recorded. Procedure [...] es. Take 1 hr prior. Started by [facility]. Not Available Not Available Not Available doxycycli [...] BY MOUTH DAILY 02/24 completed stopped by [facility] Not Available Not Available Not Available brimonidi [...] hours by oral route as needed. active [facility] Not Available Not Available No t Available Aspirin Childrens 81 mg chewable tablet Take 1 tablet by mouth once a day active Not Available Not Available No t Available lisinopri l 5 mg tablet TAKE 1 TABLET BY MOUTH EVERY DAY 02/24 completed stopped by [facility] Not Available Not Available Not Available mupirocin [...] day by oral route. active started by [facility] Not Available Not Available Not Available dorzolami [...] Updated DateTime 4 167.64 cm 22.6 kg/m2 80525.6 5 g 63 /min 99 % 99 % 102 mm[Hg] 54 mm[Hg] Hudson Reeder MA [facility] 10:27:28 Social History Question Answer Notes LastModified by Organizat ion Details LastModified Time Tobacco Smoking Status Former Smoker Hudson Reeder MA null, [facility] 03/06/2024 10:24:50 Do You Have An Advance Directive? Yes Registered 08/15/23 Updated 01/12/24 Information not available 01/15/2024 When Did You Quit Smoking? 11-15years sincelastc igarette [email or web address] Information not available 03/06/2024 Do You Have A Medical Power Of Waste Removalist? Yes Received 08/30/23, Scanned. Copies Sent To [facility] And Patient 09/02/23. Information not available 09/02/2023 What Was The Date Of Your Most Recent Tobacco Screening? 03/06/2024 [email or web address] Information not available 03/06/2024 What Is Your Current Pack Years? 30ormorepa ckyears [email or web address] Information not available 03/06/2024 How Much Tobacco Do You Smoke? 1 PPD [email or web address] Information not available 03/06/2024 How Many Years Have You Smoked Tobacco? 40 [email or web address] Information not available 03/06/2024 Do You Or Have You Ever Used Any Other Forms Of Tobacco Or Nicotine? No [email or web address] Information not available 03/06/2024 Sex: Male Functional [...] Recorded Time Tdap 08/26/2013 completed [facility] 05:30:17 Td(adult) unspecified formulation 11/21/2022 completed Not Available [facility] 10/18/2023 05:30:17 COVID-19, mRNA, LNP-S, PF, 100 mcg/0.5mL dose or 50 mcg/0.25mL dose 01/24/2021 completed Not Available [facility] 10/18/19 05:30:18 COVID-19, mRNA, LNP-S, PF, 100 mcg/0.5mL dose or 50 mcg/0.25mL dose 02/21/2021 completed Not Available [facility] 10/18/19 05:30:18 COVID-19, mRNA, LNP-S, PF, 100 mcg/0.5mL dose or 50 mcg/0.25mL dose 09/11/2021 completed Not Available [facility] 10/18/19 05:30:18 influenza, unspecified formulation 07/26/2021 completed Not Available [facility] 10/18/2023 05:30:18 influenza, unspecified formulation 07/26/2022 completed Not Available [facility] 10/18/2023 05:30:18 influenza, unspecified formulation 07/28/2020 completed Not Available [facility] 10/18/2023 05:30:18 influenza, unspecified formulation 08/05/2019 completed Not Available [facility] 10/18/2023 05:30:18 influenza, unspecified formulation 08/12/2018 completed Not Available [facility] 10/18/2023 05:30:18 Past Encounters Encounter ID Performer Location Encounter Start Date Encounter Closed Date Diagnosis/Indication Diagnosis SNOMED-CT Code [id number] TATYANA LEDEZMA MD [address] [address] 03/06/2024 10:15:07 03/06/2024 11:14:28 Postoperative visit [id number] Aortic rosa m nosis, non-rheumatic 251638953 Stented co ronary artery 806623288 At [facility] risk of atrial fibrillation 716843499 Anemia 993748881 Health Concerns Section Related Observation LastModified by Organization Detai ls LastModified Time None Recorded Concern Status LastModified by Organization Details LastModified Time None Recorded Payers Encounter Date Sequence Insurance Name Policy Number Policy Alicia Covered Member ID Alicia Member ID Guarantor Name 03/06/2024 1 [facility] [id number] Karlos C Patenaude [id number] Karlos Jessica Patenaude Notes Date Note Type Note Provider Name and Address Organization Details Recorded Time 03/06/2024 text/html HPI Notes: Ana Paula marlow is here today for a postop evaluation TATYANA LEDEZMA MD [address], [place], [address], [facility]. 03/08/2024 13:57:34
--- OUTSIDE RECORDS SUMMARY | 2024-05-11 08:14 | XMS_ITS | Encounter Summary ---
Author Organization [facility] [place] [address] Care Team Providers Care Breakfast Attendant Name Role Phone Vanessa Christian MAURI Primary Care Provider [phone] Encounter Details Date Type Department Care Team (Latest Contact Info) Description 01/09/2024 3:00 PM EDT Laboratory [place] [phone] Nonrheumatic aortic valve stenosis Social History Tobacco Use Types Packs/Day Years Used Date Smoking Tobacco: Former Cigarettes Smokeless Tobacco: Never Comments:Quit 15 + years ago Alcohol Use Standard Drinks/Week Comments Yes 0 (1 standard drink = 0.6 oz pur e alcohol) rare [facility] Inpatient Questions Answer Date Recorded [...] AM EDT Office Visit Cardiology at [address] [phone] Neftali Ernandez MD [facility] [place] [address] documented as of this encounter Procedures Procedure Name Priority Date/Time Associated Diagnosis Comments ABORH RECHECK STATUS Routine 01/09/2024 2:58 PM EDT HEMOGRAM Routine 01/09/2024 2:58 PM EDT Nonrheumatic aortic valve stenosis DIFFERENTIAL, AUTOMATED Routine 01/09/2024 2:58 PM EDT Nonrheumatic aortic valve stenosis TYPE AND SCREEN, SDP (FUTURE SURGERY, [facility] SAME DAY PROGRAM ONLY) Routine 01/09/2024 2:58 PM EDT Nonrheumatic aortic valve stenosis PROTHROMBIN TIME Routine 01/09/2024 2:58 PM EDT Nonrheumatic aortic valve stenosis CBC (WITH DIFF) Routine 01/09/2024 2:58 PM EDT Nonrheumatic aortic valve stenosis HEPATIC FUNCTION PANEL Routine 01/09/2024 2:58 PM EDT Nonrheumatic aortic valve stenosis BASIC METABOLIC PANEL Routine 01/09/2024 2:58 PM EDT Nonrheumatic aortic valve stenosis documented in this encounter Results * ABORH Recheck Status (01/09/2024 2:58 PM EDT) ABORH Recheck Order Order Placed [facility] ABORH Type Recheck Completed [facility] Blood 01/09/2024 2:58 PM EDT 01/09/2024 3:08 PM EDT Narrative Resulting Agency Comment Spec In Lab Zak Farmer MD BLOOD BANK LAB CECILIO ALEMAN [facility] [place] [address] * Differential, Automated (01/09/2024 2:58 PM EDT) Neutrophil % 70.5 % [facility] Neutrophil Absolute 4.34 1.70 - 6.10 x10(3)/[facility] Lymph % 18.9 % [facility] Lymphocytes Abs 1.2 0.9 - 3.2 x10(3)/[facility] Monocyte % 8.0 % [facility] Monocyte Abs 0.5 0.3 - 0.9 x10(3)/[facility] Eos % 1.6 % [facility] Eosinophils Abs 0.1 0.0 - 0.4 x10(3)/[facility] Basophil % 0.5 % [facility] Baso Absolute 0.0 0.0 - 0.1 x10(3)/[facility] Immature Gran % 0.50 % [facility] Comment: Immature granulocytes(IG's)percentage and absolute count will include metamyelocytes, myelocytes, and promyelocytes. Blood smears from CBCs yielding IG's will be scanned manually for concordance. If this scan disagrees with the automated IG or if promyelocytes are noted, a manual differential will be performed. Immature Gran Absolute 0.03 0.00 - 0.04 x10(3)/[facility] Blood 01/09/2024 2:58 PM EDT 01/09/2024 3:03 PM EDT Narrative Resulting Agency Comment Spec In Lab Zak Farmer MD HEMATOLOGY ORDERABL ES [facility] [place] [address] * Hemogram (01/09/2024 2:58 PM EDT) White Blood Cell 6.2 4.0 - 9.5 x10(3)/[facility] Red Blood Cell 5.53 4.58 - 5.54 x10(6)/[facility] Hemoglobin 16.1 13.7 - 16.5 g/dL [facility] Hematocrit 46.9 40.5 - 48.5 % [facility] Mean Cell Volume 84.8 82.9 - 93.[address] [facility] Mean Cell Hemoglobin 29.1 27.5 - 32.[address] [facility] Mean Cell Hemoglobin Concentration 34.3 32.0 - 35.7 g/dL [facility] Platelet 187 145 - 357 x10(3)/[facility] RDW Standard Deviation 39.2 36.0 - 45.[address] [facility] RDW coefficient of variation 12.6 11.4 - 13.8 % [facility] Mean Platelet Volume 9.5 7.6 - 12.[address] [facility] NRBC% auto 0.0 % [facility] NRBC Absolute 0.000 0.000 - 0.000 x10(3)/[facility] Blood 01/09/2024 2:58 PM EDT 01/09/2024 3:03 PM EDT Narrative Resulting Agency Comment Spec In Lab Zak Farmer MD HEMATOLOGY ORDERABL ES [facility] [place] [address] * Basic Metabolic Panel (non-fasting) (01/09/2024 2:58 PM EDT) Glucose 102 65 - 199 mg/dL [facility] Comment:Diabetes: >=200 mg/d L plus symptoms Blood Urea Nitrogen 15 10 - 20 mg/dL [facility] Creatinine 0.94 0.80 - 1.50 mg/dL [facility] Sodium 137 135 - 145 mmol/L [facility] Potassium 4.5 3.5 - 5.0 mmol/L [facility] Comment: Please note: ??Patients with WBC >100,000 may have falsely elevated Potassium levels. ??For accurate Potassium quantification in these patients send serum separator tube (gold top) for subsequent determinations. ??Contact the Clinical Chemistry Laboratory if there are any questions. Chloride 103 98 - 107 mmol/L [facility] Carbon Dioxide 27 22 - 31 mmol/L [facility] Anion Gap 7 5 - 15 mmol/L [facility] Calcium 9.5 8.5 - 10.5 mg/dL [facility] Est Glomerular Filtration Rate 91 >=60 mL/min/1. 73 m?? [facility] [...] Lab Zak Farmer MD CHEMISTRY ORDERABLE S [facility] [place] [address] * Hepatic Function Panel (01/09/2024 2:58 PM EDT) Protein, Total 6.7 6.1 - 8.0 g/dL [facility] Albumin 4.5 3.2 - 5.2 g/dL [facility] Aspartate Aminotransferase 21 0 - 39 unit/L [facility] Alanine Aminotransferase 21 0 - 55 unit/L [facility] Alkaline Phosphatase 81 40 - 130 unit/L [facility] Bilirubin, Total 0.7 0.2 - 1.3 mg/dL [facility] Bilirubin, Direct 0.2 0.0 - 0.3 mg/dL [facility] Blood 01/09/2024 2:58 PM EDT 01/09/2024 3:03 PM EDT Narrative Resulting Agency Comment Spec In Lab Zak Farmer MD CHEMISTRY ORDERABLE S Performing Organization Address [facility] Co de Phone Number [facility] [place] [address] * Prothrombin Time (01/09/2024 2:58 PM EDT) Prothrombin Time 10.6 9.4 - 12.[address] [facility] International Normalization Ratio 0.9 [facility] Comment: An INR <2.0 indicates [...] MD HEMATOLOGY ORDERABL ES Performing Organization Address [facility] Co de Phone Number [facility] [place] [address] * Type and Screen Future Surgery, [facility] SAME DAY PROGRAM ONLY) (01/09/2024 2:58 PM EDT) Pathologist [facility] ABORH Type O NEGATIVE [facility] Patient BB History Not Found [facility] Expires at [id number] on: 02-20-2024 [facility] Ab Screen Interp Negative [facility] Blood 01/09/2024 2:58 PM EDT 01/09/2024 2:58 PM EDT Narrative Resulting Agency Comment Spec In Lab Zak Farmer MD BLOOD BANK LAB ORDE RABLES Performing Organization Address City/[facility]/ZIP Co de Phone Number [facility] [place] [address] documented in this encounter Visit Diagnoses Diagnosis Nonrheumatic aortic valve stenosis Aortic valve disorders documented in this encounter Care Teams Breakfast Attendant Relationship Specialty Start Date End Date Vanessa Christian APRN PCP - General Family Medicine 10/21/23 documented as of this encounter
--- OUTSIDE RECORDS SUMMARY | 2024-05-11 08:14 | XMS_ITS | Encounter Summary ---
Author Organization [facility] Address [facility] [place] [address] Care Team Providers Care Retail Custodial Associate Name Role Phone Vanessa Christian MAURI Primary Care Provider [phone] Reason for Visit * Consultation (Routine) - Closed Specialty Diagnoses / Procedures Referred By Contac t Referred To Contact Cardiac Surgery Diagnoses Nonrheumatic aortic valve stenosis significant - TAVR ( defers to Card Surg d/t age) Neftali Ernandez MD [facility] [place] [address] Zak Farmer MD [facility] [place] [address] Referral ID Status Reason Start Date Expiration Date V isits Requested Visits Authorized [id number] Closed Consult, Test & Treat 10/21/2023 10/20/2024 1 1 Encounter Details Date Type Department Care Team (Late st Contact Info) Description 01/09/2024 1:40 PM EDT Office [place] [address] Zak Farmer MD [facility] [place] [address] Nonrheumatic aortic valve stenosis Social [...] office. Best personal regards, Zak Farmer MD [phone] In aggregate 55 minutes were spent evaluating [...] AM EDT Office Visit Cardiology at [address] [phone] Neftali Ernandez MD [facility] [place] [address] documented as of this encounter Results * [...] assistant that requested your imaging first. ? Narrative [...] EDT) Glucose 102 65 - 199 mg/dL [facility] Comment:Diabetes: >=200 mg/d L plus symptoms Blood Urea Nitrogen 15 10 - 20 mg/dL [facility] Creatinine 0.94 0.80 - 1.50 mg/dL [facility] Sodium 137 135 - 145 mmol/L [facility] Potassium 4.5 3.5 - 5.0 mmol/L [facility] Comment: Please note: ??Patients with WBC >100,000 may have falsely elevated Potassium levels. ??For accurate Potassium quantification in these patients send serum separator tube (gold top) for subsequent determinations. ??Contact the Clinical Chemistry Laboratory if there are any questions. Chloride 103 98 - 107 mmol/L [facility] Carbon Dioxide 27 22 - 31 mmol/L [facility] Anion Gap 7 5 - 15 mmol/L [facility] Calcium 9.5 8.5 - 10.5 mg/dL [facility] Est Glomerular Filtration Rate 91 >=60 mL/min/1. 73 m?? [facility] [...] Lab Zak Farmer MD CHEMISTRY ORDERABLE S [facility] [place] [address] * Hepatic Function Panel (01/09/2024 2:58 PM EDT) Pathologist [facility] Protein, Total 6.7 6.1 - 8.0 g/dL [facility] Albumin 4.5 3.2 - 5.2 g/dL [facility] Aspartate Aminotransferase 21 0 - 39 unit/L [facility] Alanine Aminotransferase 21 0 - 55 unit/L [facility] Alkaline Phosphatase 81 40 - 130 unit/L [facility] Bilirubin, Total 0.7 0.2 - 1.3 mg/dL [facility] Bilirubin, Direct 0.2 0.0 - 0.3 mg/dL [facility] Blood 01/09/2024 2:58 PM EDT 01/09/2024 3:03 PM EDT Narrative Resulting Agency Comment Spec In Lab Zak Farmer MD CHEMISTRY ORDERABLE S Performing Organization Address [facility] Co de Phone Number [facility] [place] [address] * Prothrombin Time (01/09/2024 2:58 PM EDT) [facility] Prothrombin Time 10.6 9.4 - 12.5 sec [facility] International Normalization Ratio 0.9 [facility] Comment: An INR <2.0 [...] MD HEMATOLOGY ORDERABL ES Performing Organization Address City/[facility]/ZIP Co de Phone Number [facility] [place] [address] * Type and Screen Future Surgery, [facility] SAME [facility] PRO[facility] ONLY) (01/09/2024 2:58 PM EDT) ABORH Type O NEGATIVE [facility] Patient BB History Not Found [facility] Expires at [id number] on: 02-20-2024 [facility] Ab Screen Interp Negative [facility] Blood 01/09/2024 2:58 PM EDT 01/09/2024 2:58 PM EDT Narrative Resulting Agency Comment Spec In Lab Zak Farmer MD BLOOD BANK LAB [facility] Organization Address City/State/ZIP Co de Phone Number [facility] [place] [address] documented in this encounter Visit Diagnoses Diagnosis Nonrheumatic aortic valve stenosis Aortic valve disorders Nonrheumatic aortic valve stenosis Aortic valve disorders documented in this encounter Care Teams Retail Custodial Associate Relationship Specialty Start Date End Date Vanessa Christian APRN PCP - General Family Medicine 10/21/23 documented as of this encounter
--- OUTSIDE RECORDS SUMMARY | 2024-05-11 08:14 | XMS_ITS | Encounter Summary ---
Author Organization [facility] [place] [address] Care Team Providers Care Marketing Intelligence Analyst Name Role Phone Vanessa Christian APRN Primary Care Provider [phone] Encounter Details Date Type Department Care Team (Late st Contact Info) Description 10/21/2023 Abstract Cardiology at [address] [phone] Adam Mayes RN Social History Tobacco Use [...] AM EDT Office Visit Cardiology at [address] [phone] Neftali Ernandez MD [facility] [place] [address] documented as of this encounter Visit Diagnoses Not on filedocumented in this encounter Care Teams Marketing Intelligence Analyst Relationship Specialty Start Date End Date Vanessa Christian APRN PCP - General Family Medicine 10/21/23 documented as of this encounter
--- OUTSIDE RECORDS SUMMARY | 2024-05-11 08:14 | XMS_ITS | Encounter Summary ---
Author Organization [facility] [place] [address] Care Team Providers Care Ash Kier Boiler Name Role Phone Vanessa Christian APRN Primary Care Provider [phone] Encounter Details Date Type Department Care Team (Late st Contact Info) Description 12/26/2023 Notes Only Cardiology at [address] [address] Neftali Ernandez MD [facility] [place] [address] Social History Tobacco Use Types Packs/Day Years [...] PM EDT Echocardiogram images reviewed from [facility]. Indeed, the aortic valve appears severely stenotic. Cannotrule out bicuspid valve documented in this encounter Plan of Treatment Upcoming Encounters Date Type Department Care Team (Late st Contact Info) Description 05/27/2024 11:00 AM EDT Office Visit Cardiology at [address] [address] Neftali Ernandez MD [facility] [place] [address] documented as of this encounter Visit Diagnoses Not on filedocumented in this encounter Care Teams Ash Kier Boiler Relationship Specialty Start Date End Date Vanessa Christian APRN PCP - General Family Medicine 10/21/23 documented as of this encounter
--- OUTSIDE RECORDS SUMMARY | 2024-05-11 08:14 | XMS_ITS | Encounter Summary ---
[place] [address] Care Team Providers Care Pipe Fitter Ammonia Name Role Phone Victor M Lafleur MD Primary Care Provider [phone] Reason for Visit * Reason Onset Date Comments Referral 09/20/2023 Encounter Details Date Type Department Care Team (Late st Contact Info) Description 09/20/2023 Telephone Cardiology at [address] [phone] Karen Billy, supervisor long goods Social History Tobacco Use Types Packs/Day Years [...] AM EDT Office Visit Cardiology at [address] [place] [address] Neftali Ernandez MD [facility] [place] [address] documented as of this encounter Visit Diagnoses Not on filedocumented in this encounter Care Teams Pipe Fitter Ammonia Relationship Specialty Start Date End Date Victor M Lafleur MD PCP - General 10/02/13 10/20/23 documented as of this encounter
--- OUTSIDE RECORDS SUMMARY | 2024-05-11 08:14 | XMS_ITS | Encounter Summary ---
[facility] [place] [address] Care Team Providers Care Retina Subspecialist Name Role Phone Vanessa Christian Lane ODTSON Primary Care Provider Encounter Details Date Type Department Care Team (Late st Contact Info) Description 01/09/2024 2:30 PM EDT Clinical Support Same Day at [facility] [place] [phone] Social History Tobacco Use Types Packs/Day Years Used Date Smoking Tobacco: Former Cigarettes Smokeless Tobacco: Never Comments:Quit 15 + years ago Alcohol Use Standard Drinks/Week Comments Yes 0 (1 standard drink = 0.6 oz pur e alcohol) rare [facility] Inpatient Questions Answer Date Recorded Prevent [...] of this encounter Progress Notes * Saba eRed RN - 01/09/2024 2:30 PM EDT Abbreviated [...] you tube link for a video about [facility] cardiac surgery. Instructed to bring the booklet [...] type and screen performed while in the [facility]. Sent to Radiology for chest x-ray. Special medication instructions: None Procedure date: not booked. Darian documented in this encounter Plan of Treatment Upcoming Encounters Date Type Department Care Team (Late st Contact Info) Description 05/27/2024 11:00 AM EDT Office Visit Cardiology at [address] [place] [phone] Neftali Ernandez MD [facility] [address] documented as of this encounter Visit Diagnoses Not on filedocumented in this encounter Care Teams Retina Subspecialist Relationship Specialty Start Date End Date Vanessa Christian APRN PCP - General Family Medicine 10/21/23 documented as of this encounter
--- OUTSIDE RECORDS SUMMARY | 2024-05-11 08:14 | XMS_ITS | Encounter Summary ---
Author Organization [facility] [place] [address] Care Team Providers Care Monotypist Name Role Phone Vanessa Christian APRN Primary Care Provider [phone] Encounter Details Date Type Department Care Team [...] 11:00 AM EDT Office Visit Cardiology at [address] [place] [phone] Neftali Ernandez MD [facility] [place] [id number] documented as of this encounter Visit Diagnoses Not on filedocumented in this encounter Care Teams Monotypist Relationship Specialty Start Date End Date Vanessa Christian APRN PCP - General Family Medicine 10/21/23 documented as of this encounter
--- OUTSIDE RECORDS SUMMARY | 2024-05-11 08:14 | XMS_ITS | Encounter Summary ---
Author Organization [facility] [place] [address] Care Team Providers Care Director [employer] Name Role Phone Vanessa Christian APRN Primary Care Provider [phone] Encounter Details Date Type Department Care Team [...] AM EDT Office Visit Cardiology at [address] [place] [phone] Neftali Ernandez MD [facility] [place] [address] documented as of this encounter Visit Diagnoses Not on filedocumented in this encounter Care Teams Director [employer] Relationship Specialty Start Date End Date Vanessa Christian APRN PCP - General Family Medicine 10/21/23 documented as of this encounter
--- OUTSIDE RECORDS SUMMARY | 2024-05-11 08:14 | XMS_ITS | Encounter Summary ---
Author Organization [facility] [place] [address] Care Team Providers Care Seed Packer Name Role Phone Victor M Lafleur MD Primary Care Provider [phone] Encounter Details Date Type Department Care Team (Late st Contact Info) Description 09/26/2023 Abstract Cardiology at [address] [phone] Karen Billy, RN Nonrheumatic aortic [...] AM EDT Office Visit Cardiology at [address] [address] Neftali Ernandez MD [facility] [place] [address] documented as of this encounter Visit Diagnoses Diagnosis Nonrheumatic aortic valve stenosis Aortic valve disorders Nevus of face Benign neoplasm of skin of other and unspecified parts of face documented in this encounter Care Teams Seed Packer Relationship Specialty Start Date End Date Victor M Lafleur MD PCP - General 10/02/13 10/20/23 documented as of this encounter
--- OUTSIDE RECORDS SUMMARY | 2024-05-13 08:10 | XMS_ITS | Encounter Summary ---
Author Organization [facility] Address [facility] [place] [address] Care Team Providers Care Inspector [employer] Name Role Phone Gino Vanessa Lane DOTSON Primary Care Provider [phone] Encounter Details Date Type Department Care Team (Late st Contact Info) Description 02/24/2024 Orders Only Cardiac Surgery [facility] [place] [phone] Trudi Lester APRN [facility] [place] [address] Social History Tobacco Use Types Packs/Day Years Used Date Smoking Tobacco: Former Cigarettes Smokeless Tobacco: Never Comments:Quit 15 + years ago Alcohol Use Standard Drinks/Week Comments Yes 0 (1 standard drink = 0.6 oz pur e alcohol) rare [facility] Utilities Answer Date Recorded In the past 12 months has e [email or web address], gas, oil, or water [employer] threatened to shut off services in your [...] 11:00 AM EDT Office Visit Cardiology at [address] [place] [address] Neftali Ernandez MD [facility] [place] [address] documented as of this encounter Visit Diagnoses Not on filedocumented in this encounter Care Teams Inspector [employer] Relationship Specialty Start Date End Date Vanessa Christian APRN PCP - General Family Medicine 10/21/23 documented as of this encounter
--- OUTSIDE RECORDS SUMMARY | 2024-05-13 08:10 | XMS_ITS | Encounter Summary ---
Author Organization [facility] [address] Care Team Providers Care Security Alarm Installer Name Role Phone Vanessa Christian MAURI Primary Care Provider [phone] Encounter Details Date Type Department Care Team (Latest Contact Info) Description 03/12/2024 Travel Social History Tobacco Use Types Packs/Day Years Used Date Smoking Tobacco: Former Cigarettes Smokeless Tobacco: Never Comments:Quit 15 + years ago Alcohol Use Standard Drinks/Week Comments Yes 0 (1 standard drink = 0.6 oz pur e alcohol) rare [facility] Utilities Answer Date Recorded In the past [...] AM EDT Office Visit Cardiology at [address] [place] [phone] Neftlai Ernandez MD [facility] [place] [address] documented as of this encounter Visit Diagnoses Not on filedocumented in this encounter Care Teams Security Alarm Installer Relationship Specialty Start Date End Date Vanessa Christian APRN PCP - General Family Medicine 10/21/23 documented as of this encounter
--- OUTSIDE RECORDS SUMMARY | 2024-05-13 08:10 | XMS_ITS | Clinical Summary ---
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 Logistics and preliminary review of TONY were reviewed with patient. - Refer to SHT Hypertension 08/14/2023 HLD (hyperlipidemia) 08/14/2023 Resolved Problems Problem Noted Date Diagnosed Date Resolved Date Chest pressure 08/14/2023 10/21/2023 SILVA (dyspnea on exertion) 08/14/2023 Encounters Date Type Department Care Team Description 03/12/2024 2:40 PM EDT [place] [address] Zak Farmer MD Coronary artery disease, unspecified vessel or lesion type, unspecified whether angina present, unspecified whether [place] or transplanted heart 03/12/2024 1:30 PM EDT - 03/12/2024 11:59 PM EDT Hospital Encounter XRay at [address] [place] [id number] Coronary artery disease, unspecified vessel or lesion type, unspecified whether angina present, unspecified whether [place] or transplanted heart Discharge Disposition: Home 03/12/2024 Travel 02/24/2024 Orders [place] [address] Trudi Lester APRN 02/17/2024 7:35 AM EDT Anesthesia Event [place] [address] Tara York MD 02/17/2024 7:30 AM EDT - 02/17/2024 1:26 PM EDT Surgery [place] [address] Zak Farmer MD ENDOSCOPIC HARVEST VEIN(S) FOR CABG (WRVU 0.31) 02/17/2024 5:43 AM EDT - 02/24/2024 11:23 AM EDT Hospital Encounter Heart and Vascular Unit Level 4 [place] [address] Zak Farmer MD S/P AVR (Primary Dx); Aortic valve stenosis, etiology of cardiac valve disease unspecified Discharge Disposition: Home with VNA 02/14/2024 [place] [address] Zak Farmer MD Coronary artery disease, unspecified vessel or lesion type, unspecified whether angina present, unspecified whether [place] or transplanted heart (Primary Dx) from Last 3 Months Social History Tobacco Use Types Packs/Day Years Used Date Smoking Tobacco: Former Cigarettes Smokeless Tobacco: Never Comments:Quit 15 + years ago Alcohol Use Standard Drinks/Week Comments Yes 0 (1 standard drink = 0.6 oz pur e alcohol) rare [facility] Utilities Answer Date Recorded In the past 12 months has [employer], gas, oil, or water [employer] threatened to shut off services in your [...] place to sleep or slept in a long-term (including now)? No 02/18/2024 DH IPV Inpatient [...] AM EDT Office Visit Cardiology at [address] [place] [address] Neftali Ernandez MD [facility] [place] [address] Health Maintenance Due Date Last Done Comments [...] series) 06/07/2024 Medical Devices Implanted Type [employer] Device Identifier Shelf Expiration Date Model / Serial / Lot Cable,Cut,Edg ,Blnt,Ss,3tpr ([id number]) - [id number] Implanted:Qty : 1 on 02/17/2024 by Zak Farmer MD at [facility] IMPLANTS Midline: Chest [employer] - [id number] 09/02/2028 [id number] / / [id number] Valve Coronary Aortic 23mm Tissue Trnscath Biopros Inspiris ([id number]) (Autoreq) - [id number] Implanted:Qty : 1 on 02/17/2024 by Zak Farmer MD at [facility] IMPLANTS Heart [employer] - TSAI LI 09/15/2027 [id number] / [id number] / Procedures Procedure Name Priority Date/Time Associated Diagnosis Comments EKG 12-LEAD Routine 03/12/2024 2:35 PM EDT Coronary artery disease, unspecified vessel or lesion type, unspecified whether angina present, unspecified whether [place] or transplanted heart XR CHEST PA AND LATERAL Routine 03/12/20 1:42 PM EDT Coronary artery disease, unspecified vessel or lesion type, unspecified whether angina present, unspecified whether [place] or transplanted heart SCAN DOC: TELEMETRY STRIPS [...] Aortic Valve Open W Cardiopulmonary Bypass Homogrf/Stent (39548) Yes 02/17/2024 7:28 AM EDT CAD Cabg, Artery-Vein, Two (62552) Yes 02/17/2024 7:28 AM EDT CAD Cabg, Arterial, Single (51609) Yes 02/17/2024 7:28 AM EDT CAD Endoscopy W/Video-Asst Vein [place], Cabg (47088) Yes 02/17/2024 7:28 AM EDT CAD POCT [...] (Bezet) 401 ms MUSE SYSTEM Calculated P [place] -12 degrees MUSE SYSTEM Calculated R [place] 24 degrees MUSE SYSTEM Calculated T [place] 74 degrees MUSE SYSTEM INTERPRETATION Sinus bradycardia T wave abnormality, consider anterior ischemia Abnormal ECG When compared with ECG of 17-FEB-2024 13:24, MT interval has decreased T wave inversion now evident in Anterior leads Confirmed by Paul Guzman ([id number]) on 03/15/2024 8:36:23 AM MUSE SYSTEM 03/12/2024 2:35 PM EDT 03/15/2024 8:36 AM EDT Zak Farmer MD ECG ORDERABLES MUSE SYSTEM * XR Chest PA & Lateral (Generic) (03/12/2024 1:42 PM EDT) Only the most recent of2 resultswithin the time period is included. Pathologist [employer] WORKSTATION ID [id number] RAD Anatomical Region Laterality Modality Chest N/A [...] who have questions please contact the health urgent care physician assistant that requested your imaging first. ? Electronically signed by: Augie Sanchez MD, [facility] ([phone]), at 03/13/2024 8:28 AM Narrative 03/13/2024 8:28 AM EDT EXAMINATION: XR CHEST PA AND LATERAL (GENERIC) CLINICAL HISTORY: s/p cabg eval effusions I25.10, Atherosclerotic heart disease of [place] coronary artery without angina pectoris TECHNIQUE: PA [...] eval effusions I25.10, Atherosclerotic heart disease of [place] coronary artery withoutangina pectoris TECHNIQUE: PA and [...] patients who have questions please contactthe health urgent care physician assistant that requested your imaging first. Electronically signed by: Augie Sanchez MD, [facility]([phone]), at 03/13/2024 8:28 AM Zak Farmer MD [...] included. Potassium 4.0 3.5 - 5.0 mmol/L [facility] [...] Lab Zak Farmer MD CHEMISTRY ORDERABLE S [facility] [place] [address] * (ABNORMAL) Basic Metabolic Panel (non-fasting) (02/23/2024 4:24 AM EDT) Only the most recent of4 resultswithin the time period is included. Glucose 117 65 - 199 mg/dL [facility] Comment:Diabetes: >=200 mg/d L plus symptoms Blood Urea Nitrogen 18 10 - 20 mg/dL [facility] [...] 98 - 107 mmol/L [facility] Carbon Dioxide 26 22 - 31 mmol/L [facility] Anion Gap 11 5 - 15 mmol/L [facility] Calcium 8.8 8.5 - 10.5 mg/dL [facility] Est Glomerular Filtration Rate 102 >=60 mL/min/1. 73 m?? [facility] [...] Carpio MD CHEMISTRY ORDERABLES [facility] [place] [address] * Lactate, whole blood, send to lab ([facility]) (02/21/2024 9:45 AM EDT) Lactate WB 2.0 0.5 - 2.2 mmol/L [facility] Blood 02/21/2024 9:45 AM EDT 02/21/2024 9:52 AM EDT Narrative Resulting Agency Comment Spec In Lab Zak Farmer MD CHEMISTRY ORDERABLE S [facility] [place] [address] * Lipase (02/21/2024 9:45 AM EDT) Lipase 56 0 - 60 unit/L [facility] Blood 02/21/2024 9:45 AM EDT 02/21/2024 9:52 AM EDT Narrative Resulting Agency Comment Spec In Lab Zak Farmer MD CHEMISTRY ORDERABLE S [facility] [place] [address] * Amylase (02/21/2024 9:45 AM EDT) Pathologist [facility] Amylase 69 28 - 100 unit/L [facility] Blood 02/21/2024 9:45 AM EDT 02/21/2024 9:52 AM EDT Narrative Resulting Agency Comment Spec In Lab Zak Farmer MD CHEMISTRY ORDERABLE S Performing Organization Address [facility]/ZIP Co de Phone Number [facility] [place] [address] * (ABNORMAL) Hepatic Function Panel (02/21/2024 9:45 AM EDT) Protein, Total 5.7(L) 6.1 - 8.0 g/dL [facility] Albumin 3.3 3.2 - 5.2 g/dL [facility] Aspartate Aminotransferase 13 0 - 39 unit/L [facility] Alanine Aminotransferase 16 0 - 55 unit/L [facility] Alkaline Phosphatase 63 40 - 130 unit/L [facility] Bilirubin, Total 0.6 0.2 - 1.3 mg/dL [facility] Bilirubin, Direct 0.2 0.0 - 0.3 mg/dL [facility] Blood 02/21/2024 9:45 AM EDT 02/21/2024 9:52 AM EDT Narrative Resulting Agency Comment Spec In Lab Zak Farmer MD CHEMISTRY ORDERABLE S Performing Organization Address City/[facility]/ZIP Co de Phone Number [facility] [place] [address] * Scan, Peripheral Blood (02/20/2024 4:23 AM EDT) Only the most recent of2 resultswithin the time period is included. Plat estimate Decreased [facility] RBC Morphology Normal [facility] Blood 02/20/2024 4:23 AM EDT 02/20/2024 4:42 AM EDT Narrative Resulting Agency Comment Spec In Lab Minnie FRENCH HEMATOLOGY CECILIO ALEMAN [facility] [place] [address] * (ABNORMAL) Hemogram (02/20/2024 4:23 AM EDT) Only the most recent of3 resultswithin the time period is included. [facility] White Blood Cell 12.7(H) 4.0 - 9.5 x10(3)/mc L [facility] Red Blood Cell 4.26(L) 4.58 - 5.54 x10(6)/mc L [facility] Hemoglobin 12.3(L) 13.7 - 16.5 g/dL [facility] Hematocrit 37.1(L) 40.5 - 48.5 % [facility] Mean Cell Volume 87.1 82.9 - 93.1 fL [facility] Mean Cell Hemoglobin 28.9 27.5 - 32.1 pg [facility] Mean Cell Hemoglobin Concentration 33.2 32.0 - 35.7 g/dL [facility] Platelet 88(L) 145 - 357 x10(3)/mc L [facility] RDW Standard Deviation 43.5 36.0 - 45.0 [facility] RDW coefficient of variation 13.7 11.4 - 13.8 % [facility] Mean Platelet Volume 10.2 7.6 - 12.9 [facility] NRBC% auto 0.0 % [facility] NRBC Absolute 0.000 0.000 - 0.000 x10(3)/ L [facility] Blood 02/20/2024 4:23 AM EDT 02/20/2024 4:42 AM EDT Narrative Resulting Agency Comment Spec In Lab Minnie FRENCH HEMATOLOGY CECILIO ALEMAN [facility] [place] [address] * (ABNORMAL) Differential, Automated (02/20/2024 4:23 AM EDT) Only the most recent of2 resultswithin the time period is included. Neutrophil % 81.7 % [facility] Neutrophil Absolute 10.37(H) 1.70 - 6.10 x10(3)/mc L [facility] Lymph % 7.4 % [facility] Lymphocytes Abs 0.9 0.9 - 3.2 x10(3)/ L [facility] Monocyte % 9.7 % [facility] Monocyte Abs 1.2(H) 0.3 - 0.9 x10(3)/ L [facility] Eos % 0.1 % [facility] Eosinophils Abs 0.0 0.0 - 0.4 x10(3)/ L [facility] Basophil % 0.2 % [facility] Baso Absolute 0.0 0.0 - 0.1 x10(3)/mc L [facility] [...] Absolute 0.12(H) 0.00 - 0.04 x10(3)/ L [facility] Blood 02/20/2024 4:23 AM EDT 02/20/2024 4:42 AM EDT Narrative Resulting Agency Comment Spec In Lab Minnie FRENCH HEMATOLOGY CECILIO ALEMAN Performing Organization Address City/[facility]/ZIP Co de Phone Number [facility] [place] [address] * POCT Glucose (02/18/2024 8:24 AM EDT) Only the most recent of4 resultswithin the time period is included. Glucose, POC 157 65 - 199 mg/dL [facility] Comment: Supplemental ranges: <140 mg/dL before meals <180 mg/dL all other times of the day Blood 02/18/2024 8:24 AM EDT 02/18/2024 8:24 AM EDT Zak Farmer MD POINT OF CARE TEST ORDERABLES Performing Organization Address City/[facility]/ZIP Co de Phone Number [facility] [place] [address] * (ABNORMAL) Troponin (02/18/2024 1:40 AM EDT) [facility] Troponin-T, High Sensitivity 342(H) <=22 ng/L [facility] Comment: This patient's troponin T [...] value can be found in the [facility] Test Catalog Troponin - [facility] Test Catalog Reference: Fourth [place] Definition of Myocardial Infarction. Journal of the [place] College [employer] 2018;72:6583-2036 Blood 02/18/2024 1:40 AM EDT 02/18/2024 1:56 AM EDT Narrative Resulting Agency Comment Spec In Lab Zak Farmer MD CHEMISTRY ORDERABLE S Performing Organization Address City/[facility]/ZIP Co de Phone Number [facility] [place] [address] * Hemoglobin (02/17/2024 5:42 PM EDT) Hemoglobin 13.7 13.7 - 16.5 g/dL [facility] Blood 02/17/2024 5:42 PM EDT 02/17/2024 6:10 PM EDT Narrative Resulting Agency Comment Spec In Lab Zak Farmer MD HEMATOLOGY ORDERABL ES Performing Organization Address City/[facility]/ZIP Co de Phone Number [facility] [place] [address] * (ABNORMAL) BLOOD GAS 2 ARTERIAL (02/17/2024 4:18 PM EDT) Only the most recent of9 resultswithin the time period is included. pH, Arterial 7.34(L) 7.35 - 7.45 [facility] PCO2, Arterial 40 35 - 45 mmHg [facility] PO2, Arterial 78(L) 85 - 104 mmHg [facility] Bicarbonate, Arterial 20.8 20.0 - 26.0 mmol/L [facility] Base Excess, Arterial -5.1(L) -3.0 - 3.0 mmol/L [facility] Hgb Blood Gas 14.6 13.7 - 16.5 g/dL [facility] Oxyhemoglobin, Arterial 93.0(L) 94.0 - 97.0 % [facility] Carboxyhemoglob in, Arterial 0.3 % [facility] Comment: Nonsmokers: 0.5-1.5% COHB Smokers: Variable, but usually less than 10% Toxic: 20-30% COHB Lethal: Greater than 60% COHB Methemoglobin, Arterial 0.8 <=1.5 % [facility] Na Whole Blood 136 135 [...] [facility] FIO2 Art 40 % [facility] PF Ratio Art 195 [facility] Blood 02/17/2024 4:18 PM EDT 02/17/2024 4:18 PM EDT Zak Farmer MD POINT OF CARE TEST ORDERABLES [facility] [place] [address] * XR Chest One View (02/17/2024 1:44 PM EDT) Pathologist [employer] WORKSTATION ID [id number] RAD Anatomical Region Laterality Modality Chest N/A Digital Radiogra phy Impressions 02/17/2024 2:12 PM EDT 1. ??No definite pleural fluid collection or pneumothorax. 2. ??Right IJ [place]-Kaila catheter tip terminates in a descending branch of the right pulmonary artery. Suggest catheter retraction. 3. ??Additional support lines and tubes as above. Thank you for letting us participate in the care of this patient. ??If you are a health care provider and have any questions regarding this report, please contact the number below. ??For patients who have questions please contact the health urgent care physician assistant that requested your imaging first. ? Electronically signed by: Denzel Hankins MD, [facility] ??([phone]), at 02/17/2024 2:12 PM Narrative 02/17/2024 2:12 PM EDT EXAMINATION: XR CHEST ONE VIEW CLINICAL HISTORY: s/p avr/cabg eval effusions TECHNIQUE: 1 view of the chest COMPARISON: Chest x-ray 01/09/2024, chest CT 02/03/2024 FINDINGS: ET tube tip terminates 5.2 cm above the carlos. Right IJ [place]-Kaila catheter tip terminates in a descending branch [...] 5.2 cm above the carlos. Right IJ [place]-Ganzcatheter tip terminates in a descending branch of [...] fluid collection or pneumothorax. 2. Right IJ [place]-Kaila catheter tip terminates in a descending branch ofthe right pulmonary artery. Suggest catheter retraction. 3. Additional support lines and tubes as above. Thank you for letting us participate in the care of this patient. If youare a health care provider and have any questions regarding this report,please contact the number below. For patients who have questions please contactthe health urgent care physician assistant that requested your imaging first. Electronically signed by: Denzel Hankins MD, [facility]([phone]), at 02/17/2024 2:12 PM Zak Farmer MD IMG DX ORDERABLES * (ABNORMAL) Coox2 (02/17/2024 1:21 PM EDT) pO2, Coox 44 mmHg [facility] Hgb Blood Gas 13.1(L) 13.7 - 16.5 g/dL [facility] Oxyhemoglobin, Coox 76.4 % [facility] Carboxyhemoglo bin, Coox 0.3 % [facility] Comment: Nonsmokers: 0.5-1.5% COHB Smokers: Variable, but usually less than 10% Toxic: 20-30% COHB Lethal: Greater than 60% COHB Methemoglobin, Coox 0.8 <=1.5 % [facility] Source Coox Mixed Venous [facility] Blood 02/17/2024 1:21 PM EDT 02/17/2024 1:21 PM EDT Zak Farmer MD POINT OF CARE TEST ORDERABLES Performing Organization Address [facility] de Phone Number [facility] [place] [address] * APTT (02/17/2024 12:10 PM EDT) Partial Thromboplastin Time 33 25 - 37 sec [facility] [...] MD HEMATOLOGY ORDERABLE S Performing Organization Address [facility] de Phone Number [facility] [place] [address] * (ABNORMAL) Thrombin time (02/17/2024 12:10 PM [...] MD HEMATOLOGY ORDERABLE S Performing Organization Address [facility] Co de Phone Number [facility] [place] [address] * (ABNORMAL) Prothrombin Time (02/17/2024 12:10 PM EDT) Prothrombin Time 16.7(H) 9.4 - 12.5 sec [facility] Comment: OR Result called by ?? LOMARL OR Results read back by: ? alondra pagan at 2024-02-17 12:41:48 International Normalization Ratio 1.5 [facility] Comment: OR Result called [...] MD HEMATOLOGY ORDERABLE S Performing Organization Address [facility] de Phone Number [facility] [place] [address] * (ABNORMAL) Fibrinogen (02/17/2024 12:10 PM EDT) Only the most recent of2 resultswithin the time period is included. Fibrinogen 154(L) 200 - 393 mg/dL [facility] [...] MD HEMATOLOGY ORDERABLE S Performing Organization Address [facility] Co de Phone Number [facility] [place] [address] * (ABNORMAL) Hemoglobin and Hematocrit, blood (02/17/2024 [...] MD HEMATOLOGY ORDERABL ES Performing Organization Address [facility] Co de Phone Number [facility] [place] [address] * (ABNORMAL) Platelet count (02/17/2024 11:04 AM EDT) Platelet 106(L) 145 - 357 x10(3)/mc L [facility] Immature Plt % 1.6 0.0 - 7.4 % [facility] Comment: Limitation of the Immature Platelet Fraction (IPF)-May be less reliable when the platelet count is less than 87a688/uL due to statistical imprecision. The IPF value [...] in a decreased state of production. References: [employer] The Clinical Value of the Immature Platelet Fraction (IPF) in Cell Recovery Document Number [id number] 03/2011 [employer] The Role of the Immature Platelet Fraction (IPF) in the Differential Diagnosis of Thrombocytopenia, Document [id number] V002/15/14 P002/17 Blood 02/17/2024 11:0 4 AM EDT 02/17/2024 11:12 AM EDT Narrative Resulting Agency Comment Spec In Lab Zak Farmer MD HEMATOLOGY ORDERABL ES [facility] [place] [address] * Surgical Pathology Report (02/17/2024 10:01 AM EDT) Final Diagnosis [id number] ? Location: [facility]; [facility]; The signing pathologist has (i) examined the relevant preparation(s) for the specimen(s) and (ii) rendered or confirmed the diagnosis(es). . ?Surgical Pathology DIAGNOSIS Aortic valve leaflets, excision: Valve leaflets with myxoid degeneration, nodular fibrosis and dystrophic calcifications. Electronically signed by: ?Livier Montoya MD Verified: ??02/24/2024 13:49 ??Pathologist Performed at: ??-[facility] Dept. of Pathology, [place] [address] Die Caster: Job Brewer MD, FCAP, ??CLIA Certificate: [id number] SPECIMEN(S) SUBMITTED A - Aortic Valve Leaflets, [...] Sections Processing Blocks submitted for decalcification: A1. Physics Technical Officer sections in 1 cassette labeled A1. ??ajw 02/24/2024 1:49 PM EDT [facility] AORTIC STRUCTURE / Unknown 02/17/2024 10:01 AM EDT 02/17/2024 10:01 AM EDT Zak Farmer MD PATHOLOGY/CYTOLOGY ORDERABLES Performing Organization Address City/[facility]/ZIP Co de Phone Number [facility] [place] [address] * Specimen to Pathology (02/17/2024 10:01 AM EDT) AP Specimen 02/17/2024 10:0 1 AM EDT 02/17/2024 10:01 AM EDT Narrative [facility] - 02/17/2024 10:01 AM EDT Specimen requisition ordered. ??Separate Pathology report to follow Zak Farmer MD PATHOLOGY/CYTOLOGY ORDERABLES Performing Organization Address City/[facility]/ZIP Co de Phone Number [facility] [place] [address] * (ABNORMAL) BLOOD GAS 2 VENOUS (02/17/2024 9:34 AM EDT) pH, Venous 7.22(Criti marquez) 7.32 - 7.42 [facility] Comment:Noted by instrument engineer. PCO2, Venous 43 41 - 51 mmHg [facility] Comment:Noted by instrument engineer. PO2, Venous 57(H) 25 - 40 mmHg [facility] Comment:Noted by instrument engineer. Bicarbonate, Venous 17.1 mmol/L [facility] Comment:Noted by instrument engineer. Base Excess, Venous -10.6 mmol/L [facility] Comment:Noted by instrument engineer. Hgb Blood Gas 11.2(L) 13.7 - 16.5 g/dL [facility] Comment:Noted by instrument engineer. Oxyhemoglobin, Venous 86.5 % [facility] Comment:Noted by instrument engineer. Carboxyhemoglob in, Venous 0.3 % [facility] Comment: Noted by instrument engineer. Nonsmokers: 0.5-1.5% COHB Smokers: Variable, but usually less than 10% Toxic: 20-30% COHB Lethal: Greater than 60% COHB Methemoglobin, Venous 0.0 <=1.5 % [facility] Comment:Noted by instrument engineer. Na Whole Blood 156(H) 135 - 145 mmol/L [facility] Comment:Noted by instrument engineer. K Whole Blood 5.5(H) 3.5 - 5.0 mmol/L [facility] Comment: Noted by instrument engineer. Please note: Patients with WBC >100,000 may have falsely elevated Potassium levels. Contact the Clinical Chemistry Laboratory if there are any questions. ICa Whole Blood 1.03(L) 1.15 - 1.33 mmol/L [facility] Comment: Noted by instrument engineer. Note: ??Total bilirubin higher than 20 mg/dL may lead to falsely low ionized calcium. CL Whole Blood 100 98 - 107 mmol/L [facility] Comment:Noted by instrument engineer. Gluc Whole Bld 132 65 - 199 mg/dL [facility] Comment: Noted by instrument engineer. Diabetes: >=200 mg/dL plus symptoms Lactate WB 1.0 0.5 - 2.2 mmol/L [facility] Comment:Noted by instrument engineer. Blood Gas Source Venous [facility] Blood 02/17/2024 9:34 AM EDT 02/17/2024 9:34 AM EDT Zak Farmer MD POINT OF CARE TEST ORDERABLES [facility] [place] [address] * Transesophageal Echo/OR (02/17/2024 6:33 AM EDT) [...] complete [facility]-operative evaluation of cardiac [...] Status decision made by: Patient Care Teams Braiding Operator Relationship Specialty Start Date End Date Aparna Jordan APRN PCP - General Family Medicine 10/21/23
--- OUTSIDE RECORDS SUMMARY | 2024-05-13 08:10 | XMS_ITS | Encounter Summary ---
Author Organization [facility] Address [facility] [place] [address] Care Team Providers Care Applications Analyst Name Role Phone Vanessa Christian MAURI Primary Care Provider [phone] Encounter Details Date Type Department Care Team (Late st Contact Info) Description 03/12/2024 2:40 PM EDT Office [place] [phone] Zak Farmer MD [facility] [place] [address] Coronary artery disease, unspecified vessel or lesion type, unspecified whether angina present, unspecified whether napaimute or transplanted heart Social History Tobacco Use Types Packs/Day Years Used Date Smoking Tobacco: Former Cigarettes Smokeless Tobacco: Never Comments:Quit 15 + years ago Alcohol Use Standard Drinks/Week Comments Yes 0 (1 standard drink = 0.6 oz pur e alcohol) rare [facility] Utilities Answer Date Recorded In the past 12 months has e [employer], gas, oil, or water [employer] threatened to shut off services in your [...] 2:40 PM EDT To: MD Vanessa Coles, COUNTER POCKET TRIMMER Re; Karlos Santa ( 1960) We had [...] office. Best personal regards, Zak Farmer MD [phone] documented in this encounter Plan of Treatment Upcoming Encounters Date Type Department Care Team (Late st Contact Info) Description 05/27/2024 11:00 AM EDT Office Visit Cardiology at [address] [place] [address] Neftali Ernandez MD [facility] [place] [address] documented as of this encounter Procedures Procedure Name Priority Date/Time Associated Diagnosis Comments EKG 12-LEAD Routine 03/12/2024 2:35 PM EDT Coronary artery disease, unspecified vessel or lesion type, unspecified whether angina present, unspecified whether napaimute or transplanted heart documented in this encounter Results * EKG 12 Lead (03/12/2024 2:35 PM EDT) Ventricular rate 59 BPM MUSE SYSTEM Atrial Rate 59 BPM MUSE SYSTEM P-R Interval 190 ms MUSE SYSTEM QRS Duration 92 ms MUSE SYSTEM Q-T Interval 406 ms MUSE SYSTEM QTC Calculated (Bezet) 401 ms MUSE SYSTEM Calculated P Wortham -12 degrees MUSE SYSTEM Calculated R [place] 24 degrees MUSE SYSTEM Calculated T Wortham 74 degrees MUSE SYSTEM INTERPRETATION Sinus bradycardia T wave abnormality, consider anterior ischemia Abnormal ECG When compared with ECG of 17-FEB-2024 13:24, AL interval has decreased T wave inversion now evident in Anterior leads Confirmed by Paul Guzman ([id number]) on 03/15/2024 8:36:23 AM MUSE SYSTEM 03/12/2024 2:35 PM EDT 03/15/2024 8:36 AM EDT Zak Farmer MD ECG ORDERABLES MUSE SYSTEM documented in this encounter Visit Diagnoses Diagnosis Coronary artery disease, unspecified vessel or lesion type, unspecified whether angina present, unspecified whether napaimute or transplanted heart documented in this encounter Care Teams Applications Analyst Relationship Specialty Start Date End Date Vanessa Christian, MAURI PCP - General Family Medicine 10/21/23 documented as of this encounter
--- OUTSIDE RECORDS SUMMARY | 2024-05-13 08:10 | XMS_ITS | Clinical Summary ---
Author Organization [facility] Address [address] [place] [address] Care Team Providers Care Bow Maker Production Name Role Phone Vanessa Christian NP Primary Care Provider [phone] Social History Tobacco Use Types Packs/Day Years [...] COVID-19 Vaccine (2022-24 season) 2023 Care Teams Bow Maker Production Relationship Specialty Start Date End Date Vanessa Christian NP [address] [place] [id number] PCP - General Family Medicine - Primary Care 10/07/23
--- OUTSIDE RECORDS SUMMARY | 2024-05-13 08:10 | XMS_ITS | Encounter Summary ---
Author Organization [facility] Address [address] [place] [address] Care Team Providers Care Senior Financial Name Role Phone Vanessa Christian Lane [place] Primary Care Provider [phone] Encounter Details Date Type Department Care Team (Late st Contact Info) Description 10/24/2023 Lab Requisition [facility] - [address] [address] Oscar Nichole MD [address] [place] [address] [phone] Factitial dermatitis Social History Tobacco Use Types [...] management options, if applicable. 10/28/2023 11:24 EST [facility] Final Diagnosis A. SKIN OF LATTER-DAY, LEFT, SHAVE BIOPSY: - Seborrheic keratosis, pigmented. 10/28/2023 11:24 EST [facility] Attestation By the signature below, the attending physician certifies that they have 1) personally conducted a gross and/or microscopic examination of the described specimen(s), and/or personally interpreted the results of laboratory testing of the described specimen(s), and 2) personally rendered or confirmed the above diagnosis. 10/28/2023 11:24 [facility] at [address] Microscopic Description The stratum corneum is thickened by compact and basketweave orthokeratosis with formation of horn pseudocysts. The epidermis is acanthotic with formation of broad and anastomosing trabeculae. The trabeculae are composed of basaloid keratinocytes with round uniform nuclei. The keratinocytes have a variable amount of melanin pigment. 10/28/2023 11:24 [facility] Clinical History Pigmented 2 cm patch; clinical diagnosis code: L98.1 10/28/2023 11:24 [facility] Gross Description A. Received in formalin labelled with proper patient identification (initials P, A) and left sikhism is a shave biopsy of an irregular [...] A3. Nora Anderson 10/25/2023 8:47 10/28/2023 11:24 [facility] Performing Lab [facility] 10/28/2023 11:24 [facility] Scanned Images 10/28/2023 11:24 [facility] Tissue SPECIMEN FROM SKIN / Unknown 10/24/2023 14:30 EST 10/24/2023 22:04 EST Oscar Nichole MD PATHOLOGY ORDERABLES [facility] [address] [place] [address] documented in this encounter Visit Diagnoses Diagnosis Factitial dermatitis Dermatitis factitia (artefacta) documented in this encounter Care Teams Senior Financial Relationship Specialty Start Date End Date Vanessa Christian NP [address] [place] [address] PCP - General Family Medicine - Primary Care 10/07/23 documented as of this encounter
--- OUTSIDE RECORDS SUMMARY | 2024-05-13 08:10 | XMS_ITS | Referral Summary ---
Author Organization [facility] Address [address] [place] [address] Care Team Providers Care Advertising Consultant Name Role Phone Filidayna Vanessa Sherman NP Primary Care Provider [phone] Social History Tobacco Use Types Packs/Day Years Used Date Smoking Tobacco: Never Assessed Sex and Gender Information Value Date Recorded Sex Assigned at Not on file Gender Identity Not on file Sexual Orientation Not on file Plan of Treatment Not on file Care Teams Advertising Consultant Relationship Specialty Start Date End Date Vanessa Christian NP [address] [place] [address] PCP - General Family Medicine - Primary Care 10/07/23
--- OUTSIDE RECORDS SUMMARY | 2024-05-13 08:10 | XMS_ITS | Encounter Summary ---
Author Organization [facility] Address [facility] [place] [address] Care Team Providers Care Senior Industrial Engineer Name Role Phone Vanessa Christian MAURI Primary Care Provider [phone] Encounter Details Date Type Department Care Team (Latest Contact Info) Description 03/12/2024 1:30 PM EDT - 03/12/2024 11:59 PM EDT Hospital Encounter XRay at [address] [place] [address] Coronary artery disease, unspecified vessel or lesion type, unspecified whether angina present, unspecified whether hopi or transplanted heart Discharge Disposition: Home Social History Tobacco Use Types Packs/Day Years Used Date Smoking Tobacco: Former Cigarettes Smokeless Tobacco: Never Comments:Quit 15 + years ago Alcohol Use Standard Drinks/Week Comments Yes 0 (1 standard drink = 0.6 oz pur e alcohol) rare [facility] Utilities Answer Date Recorded In the past 12 months has e [employer], gas, oil, or water [employer] threatened to shut off services in your [...] AM EDT Office Visit Cardiology at [address] [place] [address] Neftali Ernandez MD [facility] [place] [address] documented as of this encounter Procedures Procedure Name Priority Date/Time Associated Diagnosis Comments XR CHEST PA AND LATERAL Routine 03/12/2024 1:42 PM EDT Coronary artery disease, unspecified vessel or lesion type, unspecified whether angina present, unspecified whether hopi or transplanted heart documented in this encounter Results * XR Chest PA & Lateral (Generic) (03/12/2024 1:42 PM EDT) WORKSTATION ID [id number] RAD Anatomical Region Laterality Modality Chest N/A [...] who have questions please contact the health customer care representative that requested your imaging first. ? Electronically signed by: Augie Sanchez MD, [facility] ([phone]), at 03/13/2024 8:28 AM Narrative 03/13/2024 8:28 AM EDT EXAMINATION: XR CHEST PA AND LATERAL (GENERIC) CLINICAL HISTORY: s/p cabg eval effusions I25.10, Atherosclerotic heart disease of hopi coronary artery without angina pectoris TECHNIQUE: PA [...] eval effusions I25.10, Atherosclerotic heart disease of hopi coronary artery withoutangina pectoris TECHNIQUE: PA and [...] patients who have questions please contactthe health customer care representative that requested your imaging first. Electronically signed by: Augie Sanchez MD, [facility]([phone]), at 03/13/2024 8:28 AM Zak Farmer MD IMG DX ORDERABLES documented in this encounter Visit Diagnoses Diagnosis Coronary artery disease, unspecified vessel or lesion type, unspecified whether angina present, unspecified whether hopi or transplanted heart documented in this encounter Care Teams Senior Industrial Engineer Relationship Specialty Start Date End Date Vanessa Christian APRN PCP - General Family Medicine 10/21/23 documented as of this encounter
--- OUTSIDE RECORDS SUMMARY | 2024-05-13 08:11 | XMS_ITS | Encounter Summary ---
[place] [address] Care Team Providers Care Managing Attorney Name Role Phone Aparna Jordan MAURI Primary Care Provider [phone] Reason for Referral * Diagnostic Test (Routine) - New Request Specialty Diagnoses / Procedures Referred By Contac t Referred To Contact Cardiology Diagnoses S/P AVR Procedures Echocardiogram Transthoracic Neftali Menon PA [facility] [place] [address] [facility] [place] [address] Referral ID Status Reason Start Date Expiration Date Visits Requested Visits Authorized [id number] New Request Specialty Service Requested 02/24/2024 02/23/2025 1 1 * Consultation (Routine) - Authorized Specialty Diagnoses / Procedures Referred By Contac t Referred To Contact Cardiology Diagnoses S/P AVR Zak Graham MD [facility] [place] [address] Cardiac Rehab, [facility] [address] [place] [address] [place] [address] Referral ID Status Reason Start Date Expiration Date Visits Requested Visits Authorized [id number] Authorized Consult, Test & Treat 02/24/2024 08/22/2024 36 36 * Home Health Care (Routine) - Authorized Specialty Diagnoses / Procedures Referred By Sixto mendoza Referred To Contact Diagnoses S/P AVR Zak Graham MD [facility] [place] [address] Referral ID Status Reason Start Date Expiration Date Visits Requested Visits Authorized [id number] Authorized Consult, Test & Treat 02/24/2024 08/22/2024 [...] ARTERIAL GRAFT (WRVU 7.93) Zak Graham MD [facility] [place] [address] [facility] Referral ID Status Reason Start Date Expiration Date Visits Re quested Visits Authorized [id number] 1 1 Encounter Details Date Type Department Care Team (Latest Contact Info) Description 02/17/2024 5:43 AM EDT - 02/24/2024 11:23 AM EDT Hospital Encounter Heart and Vascular Unit Level 4 [place] [address] [facility] [place] [address] S/P AVR (Primary Dx); Aortic valve stenosis, etiology of cardiac valve disease unspecified Discharge Disposition: Home with VNA Social History Tobacco Use Types Packs/Day Years Used Date Smoking Tobacco: Former Cigarettes Smokeless Tobacco: Never Comments:Quit 15 + years ago Alcohol Use Standard Drinks/Week Comments Yes 0 (1 standard drink = 0.6 oz pur e alcohol) rare [facility] Utilities Answer Date Recorded In the [...] Patient Age: 63 y.o. Birthdate: 1960 Language: German Race: White Ethnicity: Not nor Admit Date: 02/17/2024 Discharge Date: 02/24/24 Attending Physician: Zak Graham MD Follow-up Recommendations for Providers: Please continue routine management of cardiovascular risk factors including blood pressure, lipids,glucose, etc. Please note any changes to medications. Patient to follow up with PCP, Aparna Jordna APRN, in 1-2 weeks. Patient to follow up with Data Integrity Consultant, Neftali Ernandez MD , in 2 weeks. Patient to follow up with Cardiac Surgeon, Dr. Zak Graham, with a chest x-ray, EKG, and Echo. 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 Right anglican Past Surgical History: Procedure Laterality Date PRO CABG, ARTERIAL, SINGLE N/A 02/17/2024 @CABG, USING ARTERIAL GRAFT;SINGLE ARTERIAL GRAFT (WRVU 33.75) performed by Zak Graham MD at [facility] MAIN OR PRO CABG, ARTERY-VEIN, TWO N/A 02/17/2024 @CABG, TWO VENOUS GRAFTS & ARTERIAL GRAFT (WRVU 7.93) performed by Zak Graham MD at [facility] MAIN OR PRO ENDOSCOPY W/VIDEO-ASST VEIN HARVEST, CABG Left 02/17/2024 ENDOSCOPIC HARVEST VEIN(S) FOR CABG (WRVU 0.31) performed by Zak Graham MD at [facility] MAIN OR PRO REPLACEMENT PROSTHETIC AORTIC VALVE OPEN W CARDIOPULMONARY BYPASS HOMOGRF/STENT N/A 02/17/2024 @REPLACE AORTIC VALVE, OPEN, W\CPB, W\PROSTHETIC VALVE (WRVU 41.32) performed by Zak Graham MD at [facility] MAIN OR Prior To Admission Medications Medications [...] insufficiency. He has glaucoma. He used to [employer] until about 15 years ago. He has undergone prior herniorrhaphy. 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 Major Procedures/Operations: 02/17/24 s/p avr/cabgx3 CABG x 3 JOSE->LAD SVG->dRCA SVG->OM1 EVH from LLE AVR with a 23 mm Inspiris Bioprosthesis Hospital Course: iVraj Garcia was admitted to [facility] on 02/17/2024 via the Same Day Program. [...] Zak Graham and/or the Cardiac Surgery Physician Room Service Supervisor Team may be reached at . Antibiotic [...] Please refer to the card with the [place] Heart [employer] Guidelines for more information. You [...] Dr. Zak Graham. You may use a [place] Track or treadmill but avoid any pulling [...] friends, go to a movie, go to hindu, etc. Heavy activities: No hunting, skiing, jogging, [...] should resume a low fat, low cholesterol, [place] Heart Association Diet. Driving: No driving until [...] while being managed by your PCP and/or Data Integrity Consultant. For future medication refills, please refer to your PCP and/or Data Integrity Consultant after your discharge from our service. Thank you REMOVE CHEST TUBE SUTURES ON OR AFTER 03/02/24 Home oxygen therapy: N/A Follow up appointments: You should follow up with your PCP, Aparna Jordan APRN, in 1-2 weeks. Our office will schedule an appointment with your Data Integrity Consultant, Neftali Ernandez MD , in 2 weeks. You have an appointment with your Cardiac Surgeon, Dr. Zak Graham, 4 weeks with a chest x-ray, EKG, and Echo before your appointment. Cardiac Rehabilitation: Viraj Garcia was seen regarding participation in the outpatient Phase 2Cardiac Rehabilitation at [facility]. The patient agrees to a referral to this program. The referral will be sent at discharge and the patient should be contacted by the Program within 1- 2 weeks from discharge. Future Appointments and Orders Future Orders Complete By Expires Echocardiogram Transthoracic [92687 CPT(R)] 03/26/2024 09/25/2024 Process Instructions: Scheduling Instructions: Questions: Where will study be performed?: [facility] Clinics Does the patient have Congenital Heart Disease?: Does patient require sedation?: Sedation rationale: XR Chest PA & Lateral (Generic) [30937 19825 Custom] 03/26/2024 09/25/2024 Process Instructions: Scheduling Instructions: Questions: Portable exam?: Reason for exam and clinical history: s/p avr/cabg Clinical information / jerome questions for radiologist: Stat read required?: Date of injury if applicable: Requested Time: Where will study be performed?: [facility] Radiology Referral to Cardiac Rehab [CEA331 Custom] As directed Process Instructions: If no progress note charted, please enter Clinical details in comments. Scheduling Instructions: Questions: My question or request is: s/p AVR/CABG. Cardiac rehab at [facility]. Referral to Home Health [REF34 Custom] As directed Process Instructions: If no progress note charted, please enter Clinical details in comments. Scheduling Instructions: Comments: Please evaluate Viraj Garcia for admission to Home Health. [address] Phone Number: Date of : 1960 Inpatient DOCUMENTATION FOR VNA SERVICES (INCLUDING THOSE PATIENTS WITH MEDICARE COVERAGE REQUIRING HOME VNA SERVICES AND/OR HOSPICE SERVICES) PATIENT'S LOCATION: Viraj Garcia [address] [employer] [phone] Top Distribution Executive's Name: self/family In discussion with the attending physician, it is certified that this patient is under their care and that they, or a Nurse Practitioner, or Physician Room Service Supervisor who is working directly with them, hada [...] for services as follows: HOME HEALTH AGENCY: [facility] [address] [place] [address] RN orders: Cardiopulmonary assessment, incisional assessment, assess [...] issues please call the Cardiology Office at [phone] FOR MEDICARE ONLY: (please delete this section [...] APRN [address] / [place] [address] . All VNA agencies which cover the area of patient's residence have been reviewed, either verbally or in writing, and patient/family have chosen the home health care agency noted. Questions: Disciplines Requested: Nursing Physical Therapy Arrangements for VNA/home care: As above. Signed: NEFTALI MENON PA-C [facility] Section of Cardiac Surgery [facility] [address] FAX [phone] Date: 02/24/2024 CC: Aparna Jordan, MAURI Jordan, Aparna Sherman APRN [address] [place] [address] documented in this encounter Discharge Instructions * [...] Zak Graham and/or the Cardiac Surgery Physician Room Service Supervisor Team may be reached at . Antibiotic [...] Please refer to the card with the [place] Heart Association Guidelines for more information. You [...] Dr. Zak Graham. You may use a [place] Track or treadmill but avoid any pulling [...] friends, go to a movie, go to hindu, etc. Heavy activities: No hunting, skiing, jogging, [...] should resume a low fat, low cholesterol, [place] Heart Association Diet. Driving: No driving until [...] while being managed by your PCP and/or Data Integrity Consultant. For future medication refills, please refer to your PCP and/or Data Integrity Consultant after your discharge from our service. Thank you REMOVE CHEST TUBE SUTURES ON OR AFTER 03/02/24 Home oxygen therapy: N/A Follow up appointments: You should follow up with your PCP, Aparna Jordan APRN, in 1-2 weeks. Our office will schedule an appointment with your Data Integrity Consultant, Neftali Ernandez MD , in 2 weeks. You have an appointment with your Cardiac Surgeon, Dr. Zak Graham, 4 weeks with a chest x-ray, EKG, and Echo before your appointment. Cardiac Rehabilitation: Viraj Garcia was seen regarding participation in the outpatient Phase 2Cardiac Rehabilitation at [facility]. The patient agrees to a referral [...] 0600 and on the weekends please page [phone]. * Eric Barahona PA - 02/23/2024 9:27 [...] 0600 and on the weekends please page [phone]. * Tiffanie Owens - 02/22/2024 2:48 PM [...] d/c for 10 days. 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 * Kelley Hinson PTA - 02/21/2024 10:15 [...] d/c for 10 days. 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 * Kelley Hinson PTA - 02/20/2024 3:32 [...] at that time Kelley Hinson PTA Pager: [phone] Physical Therapy Inpatient Rehab Department * Louisa [...] 0600 and on the weekends please page [phone]. * Chrystal Benavides, PT - 02/19/2024 11:22 [...] d/c for 10 days. 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 Precautions/Special Considerations: STERNAL [...] outlined inthis evaluation. CHRYSTAL BENAVIDES, PT Pager: [phone] Physical Therapy Inpatient Rehabilitation Department Time IN / OUT: 1113-0262 Total Time: 38 (eval) minutes; * Antonio [...] 0600 and on the weekends please page [phone]. * Minnie Begum PA - 02/18/2024 8:25 [...] 0600 and on the weekends please page [phone]. * Kim Ha SALES AGENT BUSINESS SERVICES - 02/17/2024 2:25 PM EDT Respiratory Care [...] plan since last visit. Zak Graham MD [phone] Source Note - Zak Graham MD - [...] given written informed consent. Zak Graham MD [phone] * Zak Graham MD - 02/17/2024 7:00 [...] given written informed consent. Zak Graham MD [phone] documented in this encounter Miscellaneous Notes * [...] information for follow-up Home Health & Hospice, [address] [place] [address] Cardiac Rehab, [address] [place] [address] Transportation: family or friend will provide Functional status prior to admission: Independent Home Environment: Others in the home: alone. Current Living Arrangements: home/apartment/condo. Accessibility Concerns:a few steps to enter 1 floor home. Current Functional Ability: Assistive Person and Equipment DME used at home: none DME Needed at Discharge: N/A Patient is insured through: Primary Insurance: [facility] Payor: [facility] / Plan: [facility] PPO / Product Type: *No Product [...] managed with scheduled Tylenol. Worked with mobility Attune. Ambulated in the roque multiple times during [...] anticipated Patient is insured through: Primary Insurance: [facility] Payor: [facility] / Plan: [facility] PPO / Product Type: *No Product type* / Secondary Insurance: N/A Last Physical Therapy Recommendation: home with home health (Str coming to stay for a week or two upon d/c) with to be determined (owns rolling walker, shower seat) Plan for discharge is: Home w/ Services Outpatient Agency/Support Group Needs: Homecare agency Home Health Services: Physical Therapy, Registered Nurse Agency Referrals: [facility] [address] [place] [address] Transportation: family or friend will provide Barriers to discharge: Discharge planning Plan going forward: Service Care Management will continue to follow and assist with discharge planning and coordination of care as indicated. Anticipated Date of Discharge: 02/22/2024 Rhett Bell RN RN/CM - Cellphone: [phone] Pager: [phone] Covering Service RN/CM * Plan of Care [...] RN - 02/19/2024 10:44 AM EDT [facility] CARDIAC REHABILITATION Viraj Garcia was seen today regarding participation in the outpatient Phase 2 Cardiac Rehabilitation at [facility]. The patient agrees to a referral [...] Hypertension 08/14/2023 Nevus of face 09/26/2023 Right anglican Hospitalizations Within the Past 30 Days: no previous admission in last 30 days Current Decision-Making Capacity: Self If AD's have not been completed the following surrogate would be surrogate decision maker per [place] surrogate decision making law. (Only good for 180 days) Any patient receiving care in [place] must abide by [place] law. The hierarchy for surrogate decision making [...] The agent with financial power of deputy commonwealth's attorney or a conservator appointed in accordance [...] steady place to sleep or slept in [facility] (including now)?: No In the past 12 months has the electric, gas, oil, or water stickK threatened to shut off services in your [...] Home Address confirmed as: [address] [facility] [address] Physical address: [address] [facility], [address] Social & Family Supports: All names listed [...] Information: none noted Health/Prescription Coverage: Primary Insurance: [facility] Payor: [facility] / Plan: [facility] PPO / Product Type: *No Product type* / Secondary Insurance: N/A ; Prescription Coverage: Yes Preferred Pharmacy: [id number] [address] Status: Patient is a : No Primary Care Provider confirmed: Aparna Jordan, MAURI [phone] Patient/Caregiver Goals of Treatment: dc to home Potential Needs for Transition of Care: home health care Agency Referrals: I have met with the patient to: discuss discharge planning needs. provide the [facility], Office of Care Management letter from the [employer] pertaining to rehab referrals. provide a letter describing our affiliations within the [facility] and educate about their right to choose where referrals are sent. provide a list of Home Health Agencies / Durable Medical Equipment vendors which serve their preferred geographic area. provided patient with [facility] Star Quality Rating handout. They have requested referrals to: [facility] [address] [place] [address] Note routed to a Rehab Aid who will communicate referrals to facilities and [...] Reina Greene RN CM, BSN, CMGT-BC Ext [phone] * Plan of Care - Binta Trinidad [...] Operative Note Patient Name: Viraj Garcia : [id number] MR#: [id number] Case Date: 02/17/2024 Surgeon: Surgeon(s) and Role: * Zak Graham MD - Primary * Neftali Menon PA - Physician Room Service Supervisor Preoperative diagnosis: CAD Postoperative diagnosis: CAD, intraoperative [...] mL Drains: Mediastinal and Left pleural Disposition: [facility] Condition: doing well without problems Attestation: Case Date: 02/17/2024 I performed this procedure without the involvement of a resident. ZAK GRAHAM MD 02/17/2024 * Op Note - Zak Graham MD - 02/17/2024 8:20 AM EDT [facility] Operative Note Patient Name: Viraj Garcia : [id number] MR#: [id number] Case Date: 02/17/2024 Surgeon: Surgeons and Role: * Zak Graham MD - Primary * Neftali Menon PA - Physician Room Service Supervisor Preoperative diagnosis: CAD Postoperative diagnosis: CAD, intraoperative [...] mL Drains: Mediastinal and Left pleural Disposition: [facility] Procedure Description: The patient was [...] AM EDT Office Visit Cardiology at [address] [id number] Neftali Ernandez MD [facility] [address] Scheduled Orders Name Type Priority Associated Diagnoses [...] Aortic Valve Open W Cardiopulmonary Bypass Homogrf/Stent (81595) Yes 02/17/2024 7:28 AM EDT CAD Cabg, Artery-Vein, Two (05720) Yes 02/17/2024 7:28 AM EDT CAD Cabg, Arterial, Single (87296) Yes 02/17/2024 7:28 AM EDT CAD Endoscopy W/Video-Asst Vein Happy, Cabg (93380) Yes 02/17/2024 7:28 AM EDT CAD POCT GLUCOSE Routine 02/17/2024 6:38 AM EDT TRANSESOPHAGEAL ECHOCARDIOGRAM IN THE OR Routine 02/17/2024 6:33 AM EDT Aortic valve stenosis, etiology of cardiac valve disease unspecified LAB SCAN 02/17/2024 12:00 AM EDT IMPLANTABLE DEVICES SCAN 02/17/2024 12:00 AM EDT documented in this encounter Results * Potassium (02/24/2024 4:42 AM EDT) Potassium 4.0 3.5 - 5.0 mmol/L [facility] Comment: Please note: ??Patients [...] Lab Zak Graham MD CHEMISTRY ORDERABLE S [facility] [place] [address] * (ABNORMAL) Basic Metabolic Panel (non-fasting) (02/23/2024 4:24 AM EDT) Glucose 117 65 - 199 mg/dL [facility] Comment:Diabetes: >=200 mg/d L plus symptoms Blood Urea Nitrogen 18 10 - 20 mg/dL [facility] Creatinine 0.71(L) 0.80 - 1.50 mg/dL [facility] Sodium 138 135 - 145 mmol/L [facility] Potassium 4.4 3.5 - 5.0 mmol/L [facility] Comment: Please note: ??Patients with WBC >100,000 may have falsely elevated Potassium levels. ??For accurate Potassium quantification in these patients send serum separator tube (gold top) for subsequent determinations. ??Contact the Clinical Chemistry Laboratory if there are any questions. Chloride 101 98 - 107 mmol/L [facility] Carbon Dioxide 26 22 - 31 mmol/L [facility] Anion Gap 11 5 - 15 mmol/L [facility] Calcium 8.8 8.5 - 10.5 mg/dL [facility] Est Glomerular Filtration Rate 102 >=60 mL/min/1. 73 m?? [facility] Comment: This patient's estimated [...] In Lab Romeo Carpio MD CHEMISTRY ORDERABLES [facility] [place] [address] * Potassium (02/22/2024 4:30 AM EDT) Potassium 3.5 3.5 - 5.0 mmol/L [facility] Comment: Please note: ??Patients [...] Lab Zak Graham MD CHEMISTRY ORDERABLE S [facility] [place] [address] * (ABNORMAL) Basic Metabolic Panel (non-fasting) (02/21/2024 9:45 AM EDT) Glucose 123 65 - 199 mg/dL [facility] Comment:Diabetes: >=200 mg/d L plus symptoms Blood Urea Nitrogen 22(H) 10 - 20 mg/dL [facility] Creatinine 0.78(L) 0.80 - 1.50 mg/dL [facility] Sodium 140 135 - 145 mmol/L [facility] Potassium 3.9 3.5 - 5.0 mmol/L [facility] Comment: Please note: ??Patients with WBC >100,000 may have falsely elevated Potassium levels. ??For accurate Potassium quantification in these patients send serum separator tube (gold top) for subsequent determinations. ??Contact the Clinical Chemistry Laboratory if there are any questions. Chloride 100 98 - 107 mmol/L [facility] Carbon Dioxide Not Perf 22 - 31 [facility] Comment:Add-on request. Yolanda le too old to perform test. Anion Gap Unable to Calculate 5 - 15 mmol/L [facility] Calcium 8.6 8.5 - 10.5 mg/dL [facility] Est Glomerular Filtration Rate 100 >=60 mL/min/1 .73 m?? [facility] Comment: This patient's estimated [...] Carpio MD CHEMISTRY ORDERABLES Performing Organization Address City/[facility]/ZIP Co de Phone Number [facility] [place] [address] * Lactate, whole blood, send to lab ([facility]) (02/21/2024 9:45 AM EDT) [facility] Lactate WB 2.0 0.5 - 2.2 mmol/L [facility] Blood 02/21/2024 9:45 AM EDT 02/21/2024 9:52 AM EDT Narrative Resulting Agency Comment Spec In Lab Zak Graham MD CHEMISTRY ORDERABLE S Performing Organization Address [facility] Co de Phone Number [facility] [place] [address] * (ABNORMAL) Hepatic Function Panel (02/21/2024 9:45 AM EDT) [facility] Protein, Total 5.7(L) 6.1 - 8.0 g/dL [facility] Albumin 3.3 3.2 - 5.2 g/dL [facility] Aspartate Aminotransferase 13 0 - 39 unit/L [facility] Alanine Aminotransferase 16 0 - 55 unit/L [facility] Alkaline Phosphatase 63 40 - 130 unit/L [facility] Bilirubin, Total 0.6 0.2 - 1.3 mg/dL [facility] Bilirubin, Direct 0.2 0.0 - 0.3 mg/dL [facility] Blood 02/21/2024 9:45 AM EDT 02/21/2024 9:52 AM EDT Narrative Resulting Agency Comment Spec In Lab Zak Graham MD CHEMISTRY ORDERABLE S [facility] [place] [address] * Lipase (02/21/2024 9:45 AM EDT) Lipase 56 0 - 60 unit/L [facility] Blood 02/21/2024 9:45 AM EDT 02/21/2024 9:52 AM EDT Narrative Resulting Agency Comment Spec In Lab Zak Graham MD CHEMISTRY ORDERABLE S [facility] [place] [address] * Amylase (02/21/2024 9:45 AM EDT) Amylase 69 28 - 100 unit/L [facility] Blood 02/21/2024 9:45 AM EDT 02/21/2024 9:52 AM EDT Narrative Resulting Agency Comment Spec In Lab Zak Graham MD CHEMISTRY ORDERABLE S Performing Organization Address [facility]/ZIP Co de Phone Number [facility] [place] [address] * Potassium (02/21/2024 3:08 AM EDT) Potassium 3.8 3.5 - 5.0 mmol/L [facility] Comment: Please note: ??Patients [...] Lab Zak Graham MD CHEMISTRY ORDERABLE S [facility] [place] [address] * XR Chest PA & Lateral (Generic) (02/20/2024 10:19 AM EDT) WORKSTATION ID [id number] RAD Anatomical Region Laterality Modality Chest N/A Digital Radiogra phy Impressions 02/20/2024 1:11 PM EDT Small pleural effusions. No pneumothorax Thank you for letting us participate in the care of this patient. ??If you are a health care provider and have any questions regarding this report, please contact the number below. ??For patients who have questions please contact the health director of medicare that requested your imaging first. ? Narrative 02/20/2024 1:11 PM EDT EXAMINATION: XR CHEST PA AND LATERAL (GENERIC) CLINICAL HISTORY: s/p AVR/CABGx3 TECHNIQUE: PA and lateral views of the chest COMPARISON: 02/17/2024 FINDINGS: Support devices: Interval removal of [place] catheter, endotracheal tube and mediastinal chest tubes The cardiac silhouette is stable status post median sternotomy, CABG and aortic valve replacement. There are small pleural effusions. No pneumothorax. Procedure Note Rogerio Cruz MD - 02/20/2024 EXAMINATION: XR CHEST PA AND LATERAL (GENERIC) CLINICAL HISTORY: s/p AVR/CABGx3 TECHNIQUE: PA and lateral views of the chest COMPARISON: 02/17/2024 FINDINGS: Support devices: Interval removal of [place] catheter, endotracheal tubeand mediastinal chest tubes The [...] who have questions please contactthe health director of medicare that requested your imaging first. Zak Graham MD IMG DX ORDERABLES * Scan, Peripheral Blood (02/20/2024 4:23 AM EDT) Pathologist [facility] Plat estimate Decreased [facility] RBC Morphology Normal [facility] Blood 02/20/2024 4:23 AM EDT 02/20/2024 4:42 AM EDT Narrative Resulting Agency Comment Spec In Lab Minnie FRENCH HEMATOLOGY CECILIO ALEMAN [facility] [place] [address] * (ABNORMAL) Differential, Automated (02/20/2024 4:23 AM EDT) [facility] Neutrophil % 81.7 % [facility] Neutrophil Absolute 10.37(H) 1.70 - 6.10 x10(3)/mc L [facility] Lymph % 7.4 % [facility] Lymphocytes Abs 0.9 0.9 - 3.2 x10(3)/mc L [facility] Monocyte % 9.7 % [facility] Monocyte Abs 1.2(H) 0.3 - 0.9 x10(3)/mc L [facility] Eos % 0.1 % [facility] Eosinophils Abs 0.0 0.0 - 0.4 x10(3)/mc L [facility] Basophil % 0.2 % [facility] Baso Absolute 0.0 0.0 - 0.1 x10(3)/mc L [facility] Immature Gran % 0.90 % [facility] Comment: Immature granulocytes(IG's)percentage and absolute count will include metamyelocytes, myelocytes, and promyelocytes. Blood smears from CBCs yielding IG's will be scanned manually for concordance. If this scan disagrees with the automated IG or if promyelocytes are noted, a manual differential will be performed. Immature Gran Absolute 0.12(H) 0.00 - 0.04 x10(3)/ L [facility] Blood 02/20/2024 4:23 AM EDT 02/20/2024 4:42 AM EDT Narrative Resulting Agency Comment Spec In Lab Minnie FRENCH HEMATOLOGY CECILIO ALEMAN [facility] [place] [address] * (ABNORMAL) Hemogram (02/20/2024 4:23 AM EDT) White Blood Cell 12.7(H) 4.0 - 9.5 x10(3)/ L [facility] Red Blood Cell 4.26(L) 4.58 - 5.54 x10(6)/mc L [facility] Hemoglobin 12.3(L) 13.7 - 16.5 g/dL [facility] Hematocrit 37.1(L) 40.5 - 48.5 % [facility] Mean Cell Volume 87.1 82.9 - 93.1 fL [facility] Mean Cell Hemoglobin 28.9 27.5 - 32.1 pg [facility] Mean Cell Hemoglobin Concentration 33.2 32.0 - 35.7 g/dL [facility] Platelet 88(L) 145 - 357 x10(3)/ L [facility] RDW Standard Deviation 43.5 36.0 - 45.0 fL [facility] RDW coefficient of variation 13.7 11.4 - 13.8 % [facility] Mean Platelet Volume 10.2 7.6 - 12.9 fL [facility] NRBC% auto 0.0 % [facility] NRBC Absolute 0.000 0.000 - 0.000 x10(3)/mc L [facility] Blood 02/20/2024 4:23 AM EDT 02/20/2024 4:42 AM EDT Narrative Resulting Agency Comment Spec In Lab Minnie FRENCH HEMATOLOGY ORDE ASH [facility] [place] [address] * (ABNORMAL) Basic Metabolic Panel (non-fasting) (02/20/2024 4:23 AM EDT) Glucose 113 65 - 199 mg/dL [facility] Comment:Diabetes: >=200 mg/d L plus symptoms Blood Urea Nitrogen 20 10 - 20 mg/dL [facility] Comment:result rechecked-KS Creatinine 0.71(L) 0.80 - 1.50 mg/dL [facility] Sodium 135 135 - 145 mmol/L [facility] Potassium 3.9 3.5 - 5.0 mmol/L [facility] Comment: Please note: ??Patients with WBC >100,000 may have falsely elevated Potassium levels. ??For accurate Potassium quantification in these patients send serum separator tube (gold top) for subsequent determinations. ??Contact the Clinical Chemistry Laboratory if there are any questions. Chloride 102 98 - 107 mmol/L [facility] Carbon Dioxide 25 22 - 31 mmol/L [facility] Anion Gap 8 5 - 15 mmol/L [facility] Calcium 8.7 8.5 - 10.5 mg/dL [facility] Comment:result rechecked-[place] Est Glomerular Filtration Rate 102 >=60 mL/min/1. 73 m?? [facility] Comment: This patient's estimated [...] MD CHEMISTRY ORDERABLE S Performing Organization Address [facility] Co de Phone Number [facility] [place] [address] * Potassium (02/19/2024 3:57 AM EDT) Potassium 4.3 3.5 - 5.0 mmol/L [facility] Comment: Please note: ??Patients [...] MD CHEMISTRY ORDERABLE S Performing Organization Address [facility] Co de Phone Number [facility] [place] [address] * POCT Glucose (02/18/2024 8:24 AM EDT) Glucose, POC 157 65 - 199 mg/dL [facility] Comment: Supplemental ranges: <140 mg/dL before meals <180 mg/dL all other times of the day Blood 02/18/2024 8:24 AM EDT 02/18/2024 8:24 AM EDT Zak Graham MD POINT OF CARE TEST ORDERABLES [facility] [place] [address] * Scan, Peripheral Blood (02/18/2024 1:40 AM EDT) Plat estimate Decreased [facility] RBC Morphology Normal [facility] Blood 02/18/2024 1:40 AM EDT 02/18/2024 1:56 AM EDT Narrative Resulting Agency Comment Spec In Lab Neftali FRENCH HEMATOLOGY ORDER OLE Performing Organization Address City/[facility]/ZIP Co de Phone Number [facility] [place] [address] * (ABNORMAL) Differential, Automated (02/18/2024 1:40 AM EDT) [facility] Neutrophil % 87.1 % [facility] Neutrophil Absolute 15.03(H) 1.70 - 6.10 x10(3)/mc L [facility] Lymph % 3.0 % [facility] Lymphocytes Abs 0.5(L) 0.9 - 3.2 x10(3)/mc L [facility] Monocyte % 9.1 % [facility] Monocyte Abs 1.6(H) 0.3 - 0.9 x10(3)/mc L [facility] Eos % 0.0 % [facility] Eosinophils Abs 0.0 0.0 - 0.4 x10(3)/mc L [facility] Basophil % 0.2 % [facility] Baso Absolute 0.0 0.0 - 0.1 x10(3)/mc L [facility] Immature Gran % 0.60 % [facility] Comment: Immature granulocytes(IG's)percentage and absolute count will include metamyelocytes, myelocytes, and promyelocytes. Blood smears from CBCs yielding IG's will be scanned manually for concordance. If this scan disagrees with the automated IG or if promyelocytes are noted, a manual differential will be performed. Immature Gran Absolute 0.10(H) 0.00 - 0.04 x10(3)/mc L [facility] Blood 02/18/2024 1:40 AM EDT 02/18/2024 1:56 AM EDT Narrative Resulting Agency Comment Spec In Lab Neftali FRENCH HEMATOLOGY ORDER OLE [facility] [place] [address] * (ABNORMAL) Hemogram (02/18/2024 1:40 AM EDT) White Blood Cell 17.2(H) 4.0 - 9.5 x10(3)/mc L [facility] Red Blood Cell 4.71 4.58 - 5.54 x10(6)/mc L [facility] Hemoglobin 13.7 13.7 - 16.5 g/dL [facility] Hematocrit 39.2(L) 40.5 - 48.5 % [facility] Mean Cell Volume 83.2 82.9 - 93.1 fL [facility] Mean Cell Hemoglobin 29.1 27.5 - 32.1 pg [facility] Mean Cell Hemoglobin Concentration 34.9 32.0 - 35.7 g/dL [facility] Platelet 147 145 - 357 x10(3)/mc L [facility] RDW Standard Deviation 39.9 36.0 - 45.0 [facility] RDW coefficient of variation 13.2 11.4 - 13.8 % [facility] Mean Platelet Volume 9.9 7.6 - 12.9 [facility] NRBC% auto 0.0 % [facility] NRBC Absolute 0.000 0.000 - 0.000 x10(3)/mc L [facility] Blood 02/18/2024 1:40 AM EDT 02/18/2024 1:56 AM EDT Narrative Resulting Agency Comment Spec In Lab Neftali FRENCH HEMATOLOGY ORDER OLE [facility] [place] [address] * (ABNORMAL) Basic Metabolic Panel (non-fasting) (02/18/2024 1:40 AM EDT) Glucose 176 65 - 199 mg/dL [facility] Comment:Diabetes: >=200 mg/d L plus symptoms Blood Urea Nitrogen 10 10 - 20 mg/dL [facility] Creatinine 0.65(L) 0.80 - 1.50 mg/dL [facility] Sodium 135 135 - 145 mmol/L [facility] Potassium 4.2 3.5 - 5.0 mmol/L [facility] Comment: Please note: ??Patients with WBC >100,000 may have falsely elevated Potassium levels. ??For accurate Potassium quantification in these patients send serum separator tube (gold top) for subsequent determinations. ??Contact the Clinical Chemistry Laboratory if there are any questions. Chloride 106 98 - 107 mmol/L [facility] Carbon Dioxide 20(L) 22 - 31 mmol/L [facility] Anion Gap 9 5 - 15 mmol/L [facility] Calcium 7.6(L) 8.5 - 10.5 mg/dL [facility] Est Glomerular Filtration Rate 105 >=60 mL/min/1. 73 m?? [facility] Comment: This patient's estimated [...] Lab Zak Graham MD CHEMISTRY ORDERABLE S [facility] [place] [address] * (ABNORMAL) Troponin (02/18/2024 1:40 AM EDT) Troponin-T, High Sensitivity 342(H) <=22 ng/L [facility] Comment: This patient's troponin [...] troponin value can be found in the [facility] Test Catalog Troponin - [facility] Test Catalog Reference: Fourth [place] Definition of Myocardial Infarction. Journal of the [place] [employer] 2018;72:9195-7008 Blood 02/18/2024 1:40 AM EDT 02/18/2024 1:56 AM EDT Narrative Resulting Agency Comment Spec In Lab Zak Graham MD CHEMISTRY ORDERABLE S Performing Organization Address [facility] Co de Phone Number [facility] [place] [address] * POCT Glucose (02/17/2024 8:13 PM EDT) Glucose, POC 142 65 - 199 mg/dL [facility] Comment: Supplemental ranges: <140 mg/dL before meals <180 mg/dL all other times of the day Blood 02/17/2024 8:13 PM EDT 02/17/2024 8:13 PM EDT Zak Graham MD POINT OF CARE TEST ORDERABLES Performing Organization Address [facility] Co de Phone Number [facility] [place] [address] * POCT Glucose (02/17/2024 5:42 PM EDT) Glucose, POC 160 65 - 199 mg/dL [facility] Comment: Supplemental ranges: <140 mg/dL before meals <180 mg/dL all other times of the day Blood 02/17/2024 5:42 PM EDT 02/17/2024 5:42 PM EDT Zak Graham MD POINT OF CARE TEST ORDERABLES Performing Organization Address [facility] Co de Phone Number [facility] [place] [address] * Hemoglobin (02/17/2024 5:42 PM EDT) Hemoglobin 13.7 13.7 - 16.5 g/dL [facility] Blood 02/17/2024 5:42 PM EDT 02/17/2024 6:10 PM EDT Narrative Resulting Agency Comment Spec In Lab Zak Graham MD HEMATOLOGY ORDERABL ES Performing Organization Address [facility]/ZIP Co de Phone Number [facility] [place] [address] * Potassium (02/17/2024 5:42 PM EDT) Pathologist [facility] Potassium 4.3 3.5 - 5.0 mmol/L [facility] Comment: Please note: ??Patients [...] MD CHEMISTRY ORDERABLE S Performing Organization Address [facility] Co de Phone Number [facility] [place] [address] * (ABNORMAL) BLOOD GAS 2 ARTERIAL (02/17/2024 4:18 PM EDT) pH, Arterial 7.34(L) 7.35 - 7.45 [facility] PCO2, Arterial 40 35 - 45 mmHg [facility] PO2, Arterial 78(L) 85 - 104 mmHg [facility] Bicarbonate, Arterial 20.8 20.0 - 26.0 mmol/L [facility] Base Excess, Arterial -5.1(L) -3.0 - 3.0 mmol/L [facility] Hgb Blood Gas 14.6 13.7 - 16.5 g/dL [facility] Oxyhemoglobin, Arterial 93.0(L) 94.0 - 97.0 % [facility] Carboxyhemoglob in, Arterial 0.3 % [facility] Comment: Nonsmokers: 0.5-1.5% COHB Smokers: Variable, but usually less than 10% Toxic: 20-30% COHB Lethal: Greater than 60% COHB Methemoglobin, Arterial 0.8 <=1.5 % [facility] Na Whole Blood 136 135 - 145 mmol/L [facility] K Whole Blood 4.1 3.5 - 5.0 mmol/L [facility] Comment: Please note: Patients with WBC >100,000 may have falsely elevated Potassium levels. Contact the Clinical Chemistry Laboratory if there are any questions. ICa Whole Blood 1.10(L) 1.15 - 1.33 mmol/L [facility] Comment: Note: ??Total bilirubin higher than 20 mg/dL may lead to falsely low ionized calcium. CL Whole Blood 105 98 - 107 mmol/L [facility] Gluc Whole Bld 159 65 - 199 mg/dL [facility] Comment:Diabetes: >=200 mg/d L plus symptoms. Lactate WB 1.2 0.5 - 2.2 mmol/L [facility] FIO2 Art 40 % [facility] PF Ratio Art 195 [facility] Blood 02/17/2024 4:18 PM EDT 02/17/2024 4:18 PM EDT Zak Graham MD POINT OF CARE TEST ORDERABLES Performing Organization Address City/State/[facility] Co de Phone Number [facility] [place] [address] * XR Chest One View (02/17/2024 1:44 PM EDT) [employer] WORKSTATION ID [id number] RAD Anatomical Region Laterality Modality Chest N/A Digital Radiogra phy Impressions 02/17/2024 2:12 PM EDT 1. ??No definite pleural fluid collection or pneumothorax. 2. ??Right IJ [place] catheter tip terminates in a descending branch [...] have questions please contact the health director of medicare that requested your imaging first. ? Electronically signed by: Denzel Hankins MD, [facility] ??([phone]), at 02/17/2024 2:12 PM Narrative 02/17/2024 2:12 PM EDT EXAMINATION: XR CHEST ONE VIEW CLINICAL HISTORY: s/p avr/cabg eval effusions TECHNIQUE: 1 view of the chest COMPARISON: Chest x-ray 01/09/2024, chest CT 02/03/2024 FINDINGS: ET tube tip terminates 5.2 cm above the carlos. Right IJ [place] catheter tip terminates in a descending branch [...] 5.2 cm above the carlos. Right IJ [place]-Ganzcatheter tip terminates in a descending branch of [...] fluid collection or pneumothorax. 2. Right IJ [place] catheter tip terminates in a descending branch ofthe right pulmonary artery. Suggest catheter retraction. 3. Additional support lines and tubes as above. Thank you for letting us participate in the care of this patient. If youare a health care provider and have any questions regarding this report,please contact the number below. For patients who have questions please contactthe health director of medicare that requested your imaging first. Zak Graham MD IMG DX ORDERABLES * (ABNORMAL) BLOOD GAS 2 ARTERIAL (02/17/2024 1:31 PM EDT) pH, Arterial 7.35 7.35 - 7.45 [facility] PCO2, Arterial 39 35 - 45 mmHg [facility] PO2, Arterial 320(H) 85 - 104 mmHg [facility] Bicarbonate, Arterial 21.4 20.0 - 26.0 mmol/L [facility] Base Excess, Arterial -4.2(L) -3.0 - 3.0 mmol/L [facility] Hgb Blood Gas 14.1 13.7 - 16.5 g/dL [facility] Oxyhemoglobin, Arterial 97.9(H) 94.0 - 97.0 % [facility] Carboxyhemoglob in, Arterial 0.3 % [facility] Comment: Nonsmokers: 0.5-1.5% COHB Smokers: Variable, but usually less than 10% Toxic: 20-30% COHB Lethal: Greater than 60% COHB Methemoglobin, Arterial 0.7 <=1.5 % [facility] Na Whole Blood 137 135 - 145 mmol/L [facility] K Whole Blood 4.2 3.5 - 5.0 mmol/L [facility] Comment: Please note: Patients with WBC >100,000 may have falsely elevated Potassium levels. Contact the Clinical Chemistry Laboratory if there are any questions. ICa Whole Blood 1.13(L) 1.15 - 1.33 mmol/L [facility] Comment: Note: ??Total bilirubin higher than 20 mg/dL may lead to falsely low ionized calcium. CL Whole Blood 108(H) 98 - 107 mmol/L [facility] Gluc Whole Bld 136 65 - 199 mg/dL [facility] Comment:Diabetes: >=200 mg/d L plus symptoms. Lactate WB 1.1 0.5 - 2.2 mmol/L [facility] FIO2 Art 100 % [facility] PF Ratio Art 320 [facility] Blood 02/17/2024 1:31 PM EDT 02/17/2024 1:31 PM EDT Zak Graham MD POINT OF CARE TEST ORDERABLES [facility] [place] [address] * (ABNORMAL) Coox2 (02/17/2024 1:21 PM EDT) pO2, Coox 44 mmHg [facility] Hgb Blood Gas 13.1(L) 13.7 - 16.5 g/dL [facility] Oxyhemoglobin, Coox 76.4 % [facility] Carboxyhemoglo bin, Coox 0.3 % [facility] Comment: Nonsmokers: 0.5-1.5% COHB Smokers: Variable, but usually less than 10% Toxic: 20-30% COHB Lethal: Greater than 60% COHB Methemoglobin, Coox 0.8 <=1.5 % [facility] Source Coox Mixed Venous [facility] Blood 02/17/2024 1:21 PM EDT 02/17/2024 1:21 PM EDT Zak Graham MD POINT OF CARE TEST ORDERABLES [facility] [place] [address] * (ABNORMAL) BLOOD GAS 2 ARTERIAL (02/17/2024 12:14 PM EDT) pH, Arterial 7.39 7.35 - 7.45 [facility] PCO2, Arterial 40 35 - 45 mmHg [facility] PO2, Arterial 338(H) 85 - 104 mmHg [facility] Bicarbonate, Arterial 23.7 20.0 - 26.0 mmol/L [facility] Base Excess, Arterial -1.3 -3.0 - 3.0 mmol/L [facility] Hgb Blood Gas 11.0(L) 13.7 - 16.5 g/dL [facility] Oxyhemoglobin, Arterial 98.8(H) 94.0 - 97.0 % [facility] Carboxyhemoglob in, Arterial 0.3 % [facility] Comment: Nonsmokers: 0.5-1.5% COHB Smokers: Variable, but usually less than 10% Toxic: 20-30% COHB Lethal: Greater than 60% COHB Methemoglobin, Arterial 0.3 <=1.5 % [facility] Na Whole Blood 135 135 - 145 mmol/L [facility] K Whole Blood 5.1(H) 3.5 - 5.0 mmol/L [facility] Comment: Please note: Patients with WBC >100,000 may have falsely elevated Potassium levels. Contact the Clinical Chemistry Laboratory if there are any questions. ICa Whole Blood 1.13(L) 1.15 - 1.33 mmol/L [facility] Comment: Note: ??Total bilirubin higher than 20 mg/dL may lead to falsely low ionized calcium. CL Whole Blood 106 98 - 107 mmol/L [facility] Gluc Whole Bld 132 65 - 199 mg/dL [facility] Comment:Diabetes: >=200 mg/d L plus symptoms. Lactate WB 1.4 0.5 - 2.2 mmol/L [facility] Blood 02/17/2024 12:1 4 PM EDT 02/17/2024 12:14 PM EDT Zak Graham MD POINT OF CARE TEST ORDERABLES Performing Organization Address [facility] Co de Phone Number [facility] [place] [address] * (ABNORMAL) Fibrinogen (02/17/2024 12:10 PM EDT) Fibrinogen 154(L) 200 - 393 mg/dL [facility] Comment: OR Result called by ?? LOMARL OR Results read back by: ? silvia pagan at 2024-02-17 12:41:48 A fibrinogen level >100 mg/dL is adequate for hemostasis in most patients without underlying bleeding disorders. Blood 02/17/2024 12:1 0 PM EDT 02/17/2024 12:19 PM EDT Narrative Resulting Agency Comment Spec In Lab Tara York MD HEMATOLOGY ORDERABLE S Performing Organization Address [facility] de Phone Number [facility] [place] [address] * (ABNORMAL) Thrombin time (02/17/2024 12:10 PM EDT) Thrombin Time 18(H) 10 - 17 sec [facility] Comment: OR Result called [...] MD HEMATOLOGY ORDERABLE S Performing Organization Address [facility]/ZIP Co de Phone Number [facility] [place] [address] * APTT (02/17/2024 12:10 PM EDT) Partial Thromboplastin Time 33 25 - 37 sec [facility] Comment: OR Result called [...] MD HEMATOLOGY ORDERABLE S Performing Organization Address City/[facility]/ZIP Co de Phone Number [facility] [place] [address] * (ABNORMAL) Prothrombin Time (02/17/2024 12:10 PM EDT) Prothrombin Time 16.7(H) 9.4 - 12.5 sec [facility] Comment: OR Result called by ?? LOMARL OR Results read back by: ? silvia pagan at 2024-02-17 12:41:48 International Normalization Ratio 1.5 [facility] Comment: OR Result called [...] Lab Tara York MD HEMATOLOGY ORDERABLE S [facility] [place] [address] * (ABNORMAL) Hemogram (02/17/2024 12:10 PM EDT) White Blood Cell 11.1(H) 4.0 - 9.5 x10(3)/mc L [facility] Red Blood Cell 3.50(L) 4.58 - 5.54 x10(6)/mc L [facility] Hemoglobin 10.4(L) 13.7 - 16.5 g/dL [facility] Hematocrit 30.2(L) 40.5 - 48.5 % [facility] Comment: This result has been called to SILVIA PAGAN by Eddie López on 02 17 2024 at 1226, and has been read back. Mean Cell Volume 86.3 82.9 - 93.1 fL [facility] Mean Cell Hemoglobin 29.7 27.5 - 32.1 pg [facility] Mean Cell Hemoglobin Concentration 34.4 32.0 - 35.7 g/dL [facility] Platelet 118(L) 145 - 357 x10(3)/mc L [facility] RDW Standard Deviation 40.2 36.0 - 45.0 fL [facility] RDW coefficient of variation 12.8 11.4 - 13.8 % [facility] Mean Platelet Volume 9.5 7.6 - 12.9 fL [facility] NRBC% auto 0.0 % [facility] NRBC Absolute 0.000 0.000 - 0.000 x10(3)/mc L [facility] Blood 02/17/2024 12:1 0 PM EDT 02/17/2024 12:19 PM EDT Narrative Resulting Agency Comment Spec In Lab Tara York MD HEMATOLOGY ORDERABLE S [facility] [address] [place] [address] * (ABNORMAL) BLOOD GAS 2 ARTERIAL (02/17/2024 11:43 AM EDT) pH, Arterial 7.38 7.35 - 7.45 [facility] PCO2, Arterial 40 35 - 45 mmHg [facility] PO2, Arterial 304(H) 85 - 104 mmHg [facility] Bicarbonate, Arterial 23.2 20.0 - 26.0 mmol/L [facility] Base Excess, Arterial -1.9 -3.0 - 3.0 mmol/L [facility] Hgb Blood Gas 11.1(L) 13.7 - 16.5 g/dL [facility] Oxyhemoglobin, Arterial 98.6(H) 94.0 - 97.0 % [facility] Carboxyhemoglob in, Arterial 0.3 % [facility] Comment: Nonsmokers: 0.5-1.5% COHB Smokers: Variable, but usually less than 10% Toxic: 20-30% COHB Lethal: Greater than 60% COHB Methemoglobin, Arterial 0.3 <=1.5 % [facility] Na Whole Blood 133(L) 135 - 145 mmol/L [facility] K Whole Blood 6.2(Critic al) 3.5 - 5.0 mmol/L [facility] Comment: Noted by instrument/control technician. Please note: Patients with WBC >100,000 may have falsely elevated Potassium levels. Contact the Clinical Chemistry Laboratory if there are any questions. ICa Whole Blood 0.97(L) 1.15 - 1.33 mmol/L [facility] Comment: Note: ??Total bilirubin higher than 20 mg/dL may lead to falsely low ionized calcium. CL Whole Blood 104 98 - 107 mmol/L [facility] Gluc Whole Bld 128 65 - 199 mg/dL [facility] Comment:Diabetes: >=200 mg/d L plus symptoms. Lactate WB 1.1 0.5 - 2.2 mmol/L [facility] Blood 02/17/2024 11:4 3 AM EDT 02/17/2024 11:43 AM EDT Zak Graham MD POINT OF CARE TEST ORDERABLES [facility] [place] [address] * (ABNORMAL) BLOOD GAS 2 ARTERIAL (02/17/2024 11:08 AM EDT) pH, Arterial 7.38 7.35 - 7.45 [facility] PCO2, Arterial 38 35 - 45 mmHg [facility] PO2, Arterial 334(H) 85 - 104 mmHg [facility] Bicarbonate, Arterial 22.0 20.0 - 26.0 mmol/L [facility] Base Excess, Arterial -3.2(L) -3.0 - 3.0 mmol/L [facility] Hgb Blood Gas 10.8(L) 13.7 - 16.5 g/dL [facility] Oxyhemoglobin, Arterial 98.7(H) 94.0 - 97.0 % [facility] Carboxyhemoglob in, Arterial 0.3 % [facility] Comment: Nonsmokers: 0.5-1.5% COHB Smokers: Variable, but usually less than 10% Toxic: 20-30% COHB Lethal: Greater than 60% COHB Methemoglobin, Arterial 0.3 <=1.5 % [facility] Na Whole Blood 131(L) 135 - 145 mmol/L [facility] K Whole Blood 6.4(Critic al) 3.5 - 5.0 mmol/L [facility] Comment: Noted by instrument/control technician. Please note: Patients with WBC >100,000 may have falsely elevated Potassium levels. Contact the Clinical Chemistry Laboratory if there are any questions. ICa Whole Blood 0.98(L) 1.15 - 1.33 mmol/L [facility] Comment: Note: ??Total bilirubin higher than 20 mg/dL may lead to falsely low ionized calcium. CL Whole Blood 104 98 - 107 mmol/L [facility] Gluc Whole Bld 127 65 - 199 mg/dL [facility] Comment:Diabetes: >=200 mg/d L plus symptoms. Lactate WB 1.0 0.5 - 2.2 mmol/L [facility] Blood 02/17/2024 11:0 8 AM EDT 02/17/2024 11:08 AM EDT Zak Graham MD POINT OF CARE TEST ORDERABLES Performing Organization Address [facility] Co de Phone Number [facility] [place] [address] * (ABNORMAL) Hemoglobin and Hematocrit, blood (02/17/2024 11:04 AM EDT) Pathologist [facility] Hemoglobin 9.6(L) 13.7 - 16.5 g/dL [facility] Hematocrit 28.0(L) 40.5 - 48.5 % [facility] Comment: This result has been called to SILVIA PAGAN by Eddie López on 02 17 2024 at 1120, and has been read back. Blood 02/17/2024 11:0 4 AM EDT 02/17/2024 11:12 AM EDT Narrative Resulting Agency Comment Spec In Lab Zak Graham MD HEMATOLOGY ORDERABL ES Performing Organization Address [facility]/ZIP Co de Phone Number [facility] [place] [address] * (ABNORMAL) Platelet count (02/17/2024 11:04 AM EDT) Platelet 106(L) 145 - 357 x10(3)/mc L [facility] Immature Plt % 1.6 0.0 - 7.4 % [facility] Comment: Limitation of the Immature Platelet Fraction (IPF)-May be less reliable when the platelet count is less than 85e269/uL due to statistical imprecision. The IPF value [...] in a decreased state of production. References: [employer] The Clinical Value of the Immature Platelet Fraction (IPF) in Cell Recovery Document Number [id number] 03/2011 [employer] The Role of the Immature Platelet Fraction (IPF) in the Differential Diagnosis of Thrombocytopenia, Document [id number] V002/15/14 P002/17 Blood 02/17/2024 11:0 4 AM EDT 02/17/2024 11:12 AM EDT Narrative Resulting Agency Comment Spec In Lab Zak Graham MD HEMATOLOGY ORDERABL ES Performing Organization Address City/State/[facility] Co de Phone Number [facility] [place] [address] * (ABNORMAL) Fibrinogen (02/17/2024 11:04 AM EDT) Fibrinogen 149(L) 200 - 393 mg/dL [facility] Comment: OR Result called by ?? SALVLT OR Results read back by: ? Silvia Pagan at 2024-02-17 11:30:47 A fibrinogen level >100 mg/dL is adequate for hemostasis in most patients without underlying bleeding disorders. Blood 02/17/2024 11:0 4 AM EDT 02/17/2024 11:12 AM EDT Narrative Resulting Agency Comment Spec In Lab Zak Graham MD HEMATOLOGY ORDERABL ES [facility] [place] [address] * (ABNORMAL) BLOOD GAS 2 ARTERIAL (02/17/2024 10:41 AM EDT) pH, Arterial 7.37 7.35 - 7.45 [facility] PCO2, Arterial 44 35 - 45 mmHg [facility] PO2, Arterial 335(H) 85 - 104 mmHg [facility] Bicarbonate, Arterial 24.9 20.0 - 26.0 mmol/L [facility] Base Excess, Arterial -0.4 -3.0 - 3.0 mmol/L [facility] Hgb Blood Gas 11.5(L) 13.7 - 16.5 g/dL [facility] Oxyhemoglobin, Arterial 98.9(H) 94.0 - 97.0 % [facility] Carboxyhemoglob in, Arterial 0.1 % [facility] Comment: Nonsmokers: 0.5-1.5% COHB Smokers: Variable, but usually less than 10% Toxic: 20-30% COHB Lethal: Greater than 60% COHB Methemoglobin, Arterial 0.3 <=1.5 % [facility] Na Whole Blood 132(L) 135 - 145 mmol/L [facility] K Whole Blood 5.9(H) 3.5 - 5.0 mmol/L [facility] Comment: Please note: Patients with WBC >100,000 may have falsely elevated Potassium levels. Contact the Clinical Chemistry Laboratory if there are any questions. ICa Whole Blood 1.02(L) 1.15 - 1.33 mmol/L [facility] Comment: Note: ??Total bilirubin higher than 20 mg/dL may lead to falsely low ionized calcium. CL Whole Blood 104 98 - 107 mmol/L [facility] Gluc Whole Bld 129 65 - 199 mg/dL [facility] Comment:Diabetes: >=200 mg/d L plus symptoms. Lactate WB 1.1 0.5 - 2.2 mmol/L [facility] Blood 02/17/2024 10:4 1 AM EDT 02/17/2024 10:41 AM EDT Zak Graham MD POINT OF CARE TEST ORDERABLES [facility] [place] [address] * (ABNORMAL) BLOOD GAS 2 ARTERIAL (02/17/2024 10:06 AM EDT) pH, Arterial 7.38 7.35 - 7.45 [facility] PCO2, Arterial 42 35 - 45 mmHg [facility] PO2, Arterial 329(H) 85 - 104 mmHg [facility] Bicarbonate, Arterial 24.7 20.0 - 26.0 mmol/L [facility] Base Excess, Arterial -0.3 -3.0 - 3.0 mmol/L [facility] Hgb Blood Gas 11.0(L) 13.7 - 16.5 g/dL [facility] Oxyhemoglobin, Arterial 99.0(H) 94.0 - 97.0 % [facility] Carboxyhemoglob in, Arterial 0.3 % [facility] Comment: Nonsmokers: 0.5-1.5% COHB Smokers: Variable, but usually less than 10% Toxic: 20-30% COHB Lethal: Greater than 60% COHB Methemoglobin, Arterial 0.3 <=1.5 % [facility] Na Whole Blood 132(L) 135 - 145 mmol/L [facility] K Whole Blood 6.0(H) 3.5 - 5.0 mmol/L [facility] Comment: Please note: Patients with WBC >100,000 may have falsely elevated Potassium levels. Contact the Clinical Chemistry Laboratory if there are any questions. ICa Whole Blood 0.97(L) 1.15 - 1.33 mmol/L [facility] Comment: Note: ??Total bilirubin higher than 20 mg/dL may lead to falsely low ionized calcium. CL Whole Blood 102 98 - 107 mmol/L [facility] Gluc Whole Bld 123 65 - 199 mg/dL [facility] Comment:Diabetes: >=200 mg/d L plus symptoms. Lactate WB 1.1 0.5 - 2.2 mmol/L [facility] Blood 02/17/2024 10:0 6 AM EDT 02/17/2024 10:06 AM EDT Zak Graham MD POINT OF CARE TEST ORDERABLES [facility] [place] [address] * Surgical Pathology Report (02/17/2024 10:01 AM EDT) Final Diagnosis [id number] ? Location: [facility]; [facility]; The signing pathologist has (i) examined the relevant preparation(s) for the specimen(s) and (ii) rendered or confirmed the diagnosis(es). . ?Surgical Pathology DIAGNOSIS Aortic valve leaflets, excision: Valve leaflets with myxoid degeneration, nodular fibrosis and dystrophic calcifications. Electronically signed by: ?Lindsay FERNANDEZ, Livier Gonzalez Verified: ??02/24/2024 13:49 ??Pathologist Performed at: ??-[facility] Dept. of Pathology, [place] [address] Turntable Man: Job Brewer MD, FCAP, ??CLIA Certificate: [id number] SPECIMEN(S) SUBMITTED A - Aortic Valve Leaflets, [...] Sections Processing Blocks submitted for decalcification: A1. Clerical And Office Support Workers sections in 1 cassette labeled A1. ??ajw 02/24/2024 1:49 PM EDT [facility] AORTIC STRUCTURE / Unknown 02/17/2024 10:01 AM EDT 02/17/2024 10:01 AM EDT Zak Graham MD PATHOLOGY/CYTOLOGY ORDERABLES Performing Organization Address City/[facility]/ZIP Co de Phone Number [facility] [place] [address] * Specimen to Pathology (02/17/2024 10:01 AM EDT) AP Specimen 02/17/2024 10:0 1 AM EDT 02/17/2024 10:01 AM EDT Narrative [facility] - 02/17/2024 10:01 AM EDT Specimen requisition ordered. ??Separate Pathology report to follow Zak Graham MD PATHOLOGY/CYTOLOGY ORDERABLES Performing Organization Address City/[facility]/ZIP Co de Phone Number [facility] [place] [address] * (ABNORMAL) BLOOD GAS 2 ARTERIAL (02/17/2024 9:35 AM EDT) pH, Arterial 7.33(L) 7.35 - 7.45 [facility] PCO2, Arterial 35 35 - 45 mmHg [facility] PO2, Arterial 318(H) 85 - 104 mmHg [facility] Bicarbonate, Arterial 17.9(L) 20.0 - 26.0 mmol/L [facility] Base Excess, Arterial -8.0(L) -3.0 - 3.0 mmol/L [facility] Hgb Blood Gas 11.0(L) 13.7 - 16.5 g/dL [facility] Oxyhemoglobin, Arterial 98.8(H) 94.0 - 97.0 % [facility] Carboxyhemoglob in, Arterial 0.3 % [facility] Comment: Nonsmokers: 0.5-1.5% COHB Smokers: Variable, but usually less than 10% Toxic: 20-30% COHB Lethal: Greater than 60% COHB Methemoglobin, Arterial 0.3 <=1.5 % [facility] Na Whole Blood 131(L) 135 - 145 mmol/L [facility] K Whole Blood 5.8(H) 3.5 - 5.0 mmol/L [facility] Comment: Please note: Patients with WBC >100,000 may have falsely elevated Potassium levels. Contact the Clinical Chemistry Laboratory if there are any questions. ICa Whole Blood 0.98(L) 1.15 - 1.33 mmol/L [facility] Comment: Note: ??Total bilirubin higher than 20 mg/dL may lead to falsely low ionized calcium. CL Whole Blood 101 98 - 107 mmol/L [facility] Gluc Whole Bld 122 65 - 199 mg/dL [facility] Comment:Diabetes: >=200 mg/d L plus symptoms. Lactate WB 0.8 0.5 - 2.2 mmol/L [facility] Blood 02/17/2024 9:35 AM EDT 02/17/2024 9:35 AM EDT Zak Graham MD POINT OF CARE TEST ORDERABLES [facility] [place] [address] * (ABNORMAL) BLOOD GAS 2 VENOUS (02/17/2024 9:34 AM EDT) pH, Venous 7.22(Criti marquez) 7.32 - 7.42 [facility] Comment:Noted by instrument/control technician. PCO2, Venous 43 41 - 51 mmHg [facility] Comment:Noted by instrument/control technician. PO2, Venous 57(H) 25 - 40 mmHg [facility] Comment:Noted by instrument/control technician. Bicarbonate, Venous 17.1 mmol/L [facility] Comment:Noted by instrument/control technician. Base Excess, Venous -10.6 mmol/L [facility] Comment:Noted by instrument/control technician. Hgb Blood Gas 11.2(L) 13.7 - 16.5 g/dL [facility] Comment:Noted by instrument/control technician. Oxyhemoglobin, Venous 86.5 % [facility] Comment:Noted by instrument/control technician. Carboxyhemoglob in, Venous 0.3 % [facility] Comment: Noted by instrument/control technician. Nonsmokers: 0.5-1.5% COHB Smokers: Variable, but usually less than 10% Toxic: 20-30% COHB Lethal: Greater than 60% COHB Methemoglobin, Venous 0.0 <=1.5 % [facility] Comment:Noted by instrument/control technician. Na Whole Blood 156(H) 135 - 145 mmol/L [facility] Comment:Noted by instrument/control technician. K Whole Blood 5.5(H) 3.5 - 5.0 mmol/L [facility] Comment: Noted by instrument/control technician. Please note: Patients with WBC >100,000 may have falsely elevated Potassium levels. Contact the Clinical Chemistry Laboratory if there are any questions. ICa Whole Blood 1.03(L) 1.15 - 1.33 mmol/L [facility] Comment: Noted by instrument/control technician. Note: ??Total bilirubin higher than 20 mg/dL may lead to falsely low ionized calcium. CL Whole Blood 100 98 - 107 mmol/L [facility] Comment:Noted by instrument/control technician. Gluc Whole Bld 132 65 - 199 mg/dL [facility] Comment: Noted by instrument/control technician. Diabetes: >=200 mg/dL plus symptoms Lactate WB 1.0 0.5 - 2.2 mmol/L [facility] Comment:Noted by instrument/control technician. Blood Gas Source Venous [facility] Blood 02/17/2024 9:34 AM EDT 02/17/2024 9:34 AM EDT Zak Graham MD POINT OF CARE TEST ORDERABLES [facility] [place] [address] * (ABNORMAL) BLOOD GAS 2 ARTERIAL (02/17/2024 8:07 AM EDT) pH, Arterial 7.43 7.35 - 7.45 [facility] PCO2, Arterial 34(L) 35 - 45 mmHg [facility] PO2, Arterial 581(H) 85 - 104 mmHg [facility] Bicarbonate, Arterial 21.7 20.0 - 26.0 mmol/L [facility] Base Excess, Arterial -2.6 -3.0 - 3.0 mmol/L [facility] Hgb Blood Gas 14.5 13.7 - 16.5 g/dL [facility] Oxyhemoglobin, Arterial 99.0(H) 94.0 - 97.0 % [facility] Carboxyhemoglob in, Arterial 0.4 % [facility] Comment: Nonsmokers: 0.5-1.5% COHB Smokers: Variable, but usually less than 10% Toxic: 20-30% COHB Lethal: Greater than 60% COHB Methemoglobin, Arterial 0.3 <=1.5 % [facility] Na Whole Blood 139 135 - 145 mmol/L [facility] K Whole Blood 4.0 3.5 - 5.0 mmol/L [facility] Comment: Please note: Patients with WBC >100,000 may have falsely elevated Potassium levels. Contact the Clinical Chemistry Laboratory if there are any questions. ICa Whole Blood 1.09(L) 1.15 - 1.33 mmol/L [facility] Comment: Note: ??Total bilirubin higher than 20 mg/dL may lead to falsely low ionized calcium. CL Whole Blood 106 98 - 107 mmol/L [facility] Gluc Whole Bld 100 65 - 199 mg/dL [facility] Comment:Diabetes: >=200 mg/d L plus symptoms. Lactate WB 1.3 0.5 - 2.2 mmol/L [facility] Blood 02/17/2024 8:07 AM EDT 02/17/2024 8:07 AM EDT Zak Graham MD POINT OF CARE TEST ORDERABLES Performing Organization Address [facility]/ZIP Co de Phone Number [facility] [place] [address] * POCT Glucose (02/17/2024 6:38 AM EDT) Glucose, POC 98 65 - 199 mg/dL [facility] Comment: Supplemental ranges: <140 mg/dL before meals <180 mg/dL all other times of the day Blood 02/17/2024 6:38 AM EDT 02/17/2024 6:38 AM EDT Zak Graham MD POINT OF CARE TEST ORDERABLES Performing Organization Address [facility] Co de Phone Number [facility] [place] [address] * Transesophageal Echo/OR (02/17/2024 6:33 AM EDT) [...] 6 hours upon arrival to Unit. Give ID if unable to take PO, Routine Given [...] dose on Sat02/17/24 at 1400, Until Discontinued, [place] teeth and / or gums. Scan the CHG vial in the [employer] Q-Care Oral Care Kit from floor stock. Ventilator-associated pneumonia prophylaxis For use in ICU/Critical care locations ONLY. Obtain kit from Floor Stock location. Scan CHG vial in the [employer] Q-Care Oral Care Kit, Routine Given 02/17/2024 [...] restart at 50% of previous rate. Call executive housekeeper if goal not achieved at maximum rate. [...] PHENYLephrine and/or vasopressin ineffective. Call pager # [phone] if initiated. Titrate to keep systolic blood [...] 2.0 L/min/M2. Maximum volume 2 L. Call executive housekeeper for additional fluid orders: pager #[phone]. Rate/Dose Verify 02/18/2024 8:00 AM EDT 1 mL/hr 1 mL/hr Rate/Dose Verify 02/18/2024 6:00 AM EDT 1 mL/hr 1 mL/hr Rate/Dose Verify 02/18/2024 4:00 AM EDT 1 mL/hr 1 mL/hr sodium chloride 0.9% infusion 10-30 mL/hr, Intravenous, DAILY PRN, Starting on Sat02/17/24 at 1307, Until Sat02/18/24 at 0835, Side port TKO rate, per [facility] nursing protocol. Rate/Dose Verify 02/17/2024 8:00 PM EDT 30 mL/hr 30 mL/hr Rate/Dose Verify 02/17/2024 6:00 PM EDT 30 mL/hr 30 mL/h r Rate/Dose Verify 02/17/2024 5:00 PM EDT 30 mL/hr 30 mL/h r sodium chloride 0.9% infusion 10-30 mL/hr, Intravenous, DAILY PRN, Starting on Sat02/17/24 at 1307, Until Sat02/18/24 at 0835, Side port TKO rate, per [facility] nrusing protocol. Rate/Dose Verify 02/18/2024 [...] Discontinued, Routine 0824 (Given - Provider: Reilly Vnicent RN)1408 (Given - Provider: Ingrid Menjivar RN)2056 [...] Provider: Mishel Merrill, COLBY)2114 (Given - Provider: Otsi Crook, COLBY) 0835 (Given - Provider: Jazlyn [...] Routine documented in this encounter Care Teams Managing Attorney Relationship Specialty Start Date End Date Aparna Jordan APRN PCP - General Family Medicine 10/21/23 documented as of this encounter
--- OUTSIDE RECORDS SUMMARY | 2024-05-13 08:11 | XMS_ITS | Encounter Summary ---
Author Organization [facility] Address [facility] [place] [address] Care Team Providers Care Welder Gun Name Role Phone Vanessa Christian MAURI Primary Care Provider [phone] Encounter Details Date Type Department Care Team (Late st Contact Info) Description 02/14/2024 Orders [place] [phone] Zak Farmer MD [facility] [place] [address] Coronary artery disease, unspecified vessel or lesion type, unspecified whether angina present, unspecified whether pala or transplanted heart (Primary Dx) Social History [...] AM EDT Office Visit Cardiology at [address] [place] [phone] Neftali Ernandez MD [facility] [place] [address] documented as of this encounter Results * EKG 12 Lead (03/12/2024 2:35 PM EDT) Ventricular rate 59 BPM MUSE SYSTEM Atrial Rate 59 BPM MUSE SYSTEM P-R Interval 190 ms MUSE SYSTEM QRS Duration 92 ms MUSE SYSTEM Q-T Interval 406 ms MUSE SYSTEM QTC Calculated (Bezet) 401 ms MUSE SYSTEM Calculated P Stonewall -12 degrees MUSE SYSTEM Calculated R [place] 24 degrees MUSE SYSTEM Calculated T [place] 74 degrees MUSE SYSTEM INTERPRETATION Sinus bradycardia T wave abnormality, consider anterior ischemia Abnormal ECG When compared with ECG of 17-FEB-2024 13:24, SD interval has decreased T wave inversion now evident in Anterior leads Confirmed by Paul Guzman ([id number]) on 03/15/2024 8:36:23 AM MUSE SYSTEM 03/12/2024 2:35 PM EDT 03/15/2024 8:36 AM EDT Zak Farmer MD ECG ORDERABLES MUSE SYSTEM * XR Chest PA & Lateral (Generic) (03/12/2024 1:42 PM EDT) WORKSTATION ID [id number] RAD Anatomical Region Laterality Modality Chest N/A [...] have questions please contact the health care coordination manager that requested your imaging first. ? 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 Zak Farmer MD IMG DX ORDERABLES documented in this encounter Visit Diagnoses Diagnosis Coronary artery disease, unspecified vessel or lesion type, unspecified whether angina present, unspecified whether pala or transplanted heart- Primary Coronary artery disease, unspecified vessel or lesion type, unspecified whether angina present, unspecified whether pala or transplanted heart documented in this encounter Care Teams Welder Gun Relationship Specialty Start Date End Date Vanessa Christian APRN PCP - General Family Medicine 10/21/23 documented as of this encounter
--- OUTSIDE RECORDS SUMMARY | 2024-05-13 08:11 | XMS_ITS | Encounter Summary ---
Author Organization [facility] [place] [address] Care Team Providers Care Certified Medical Records Coder Name Role Phone Vanessa Christian MAURI Primary Care Provider [phone] Reason for Visit * Auth/Cert (Routine) Specialty [...] ARTERIAL GRAFT (WRVU 7.93) Zak Farmer MD [facility] [place] [address] [facility] Referral ID Status Reason Start Date Expiration Date Visits Re quested Visits Authorized [id number] 1 1 Encounter Details Date Type Department Care Team (Late st Contact Info) Description 02/17/2024 7:35 AM EDT Anesthesia Event Main Operating Room [facility]ly [facility] [place] [phone] Roman York MD [facility] [place] [address] Anesthesia Record Procedure Summary Procedure Name Responsible [...] by Sadiq Woo RN PIV 02/17/24; 0715; [id number] catheter system; 18 gauge; cephalic vein (lateral [...] oz pur e alcohol) rare [facility] Utilities Answer Date Recorded In the past 12 months has th e electric, gas, oil, or water [employer] threatened to shut off services in your [...] Procedure Summary Date: 02/17/24 Room / Location: [facility] OR [address] [place] [address] MAIN OR Anesthesia Start: 734 Anesthesia Stop: [...] shown include unfiled device data. Patient Location: [facility] Level of Consciousness: Sedated (Pharmacologic/Intentional) Pain Management: [...] 08/14/2023 ??? Nevus of face 09/26/2023 Right pentecostal No past surgical history on file. Social [...] AM EDT Office Visit Cardiology at [address] [place] [address] Neftali Ernandez MD [facility] [place] [address] documented as of this encounter Visit [...] mg documented in this encounter Care Teams Certified Medical Records Coder Relationship Specialty Start Date End Date Vanessa Christian APRN PCP - General Family Medicine 10/21/23 documented as of this encounter
--- OUTSIDE RECORDS SUMMARY | 2024-05-13 08:11 | XMS_ITS | Encounter Summary ---
Author [facility] [place] [address] Care Team Providers Care Transmission And Protection Engineer Name Role Phone Aparna Jordan MAURI Primary Care Provider [phone] Reason for Visit * Auth/Cert (Routine) Specialty [...] ARTERIAL GRAFT (WRVU 7.93) Hayder Graham MD [facility] [place] [address] [facility] [[email or web address]] Referral ID Status Reason Start Date Expiration Date Visits Re quested Visits Authorized [id number] 1 1 Encounter Details Date Type Department Care Team (Late st Contact Info) Description 02/17/2024 7:30 AM EDT - 02/17/2024 1:26 PM EDT Surgery [place] [id number] Hayder Graham MD [facility] [place] [address] ENDOSCOPIC HARVEST VEIN(S) FOR CABG (WRVU 0.31) Social History Tobacco Use Types Packs/Day Years Used Date Smoking Tobacco: Former Cigarettes Smokeless Tobacco: Never Comments:Quit 15 + years ago Alcohol Use Standard Drinks/Week Comments Yes 0 (1 standard drink = 0.6 oz pur e alcohol) rare [facility] Utilities Answer Date Recorded In the [...] Patient Age: 63 y.o. Birthdate: 1960 Language: Tristanian Race: White Ethnicity: Not nor Admit Date: 02/17/2024 Discharge Date: 02/24/24 Attending Physician: Hayder Graham MD Follow-up Recommendations for Providers: Please continue routine management of cardiovascular risk factors including blood pressure, lipids,glucose, etc. Please note any changes to medications. Patient to follow up with PCP, Aparna Jordan APRN, in 1-2 weeks. Patient to follow up with Forensic Manager, Neftali Ernandez MD , in 2 weeks. Patient to follow up with Cardiac Surgeon, Dr. Hayder Graham, with a chest x-ray, EKG, and Echo. Inpatient Provider Contact Information: [facility] Section of Cardiac Surgery [facility] [phone] FAX [phone] Discharge Diagnoses (Hospital Problems) Primary Diagnoses: /CAD [...] Hypertension 08/14/2023 Nevus of face 09/26/2023 Right mormon Past Surgical History: Procedure Laterality Date PRO CABG, ARTERIAL, SINGLE N/A 02/17/2024 @CABG, USING ARTERIAL GRAFT;SINGLE ARTERIAL GRAFT (WRVU 33.75) performed by Hayder Graham MD at [facility] MAIN OR PRO CABG, ARTERY-VEIN, TWO N/A 02/17/2024 @CABG, TWO VENOUS GRAFTS & ARTERIAL GRAFT (WRVU 7.93) performed by Hayder Graham MD at [facility] MAIN OR PRO ENDOSCOPY W/VIDEO-ASST VEIN HARVEST, CABG Left 02/17/2024 ENDOSCOPIC HARVEST VEIN(S) FOR CABG (WRVU 0.31) performed by Hayder Graham MD at [facility] MAIN OR PRO REPLACEMENT PROSTHETIC AORTIC VALVE OPEN W CARDIOPULMONARY BYPASS HOMOGRF/STENT N/A 02/17/2024 @REPLACE AORTIC VALVE, OPEN, W\CPB, W\PROSTHETIC VALVE (WRVU 41.32) performed by Hayder Graham MD at [facility] MAIN OR Prior To Admission Medications [...] insufficiency. He has glaucoma. He used to [email or web address] until about 15 years ago. He has undergone prior herniorrhaphy. 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 Major Procedures/Operations: 02/17/24 s/p avr/cabgx3 CABG x 3 JOSE->LAD SVG->dRCA SVG->OM1 EVH from LLE AVR with a 23 mm Inspiris Bioprosthesis Hospital Course: Kralos Garcia was admitted to [facility] on 02/17/2024 via the Same Day [...] Hayder Graham and/or the Cardiac Surgery Physician Inside Wireman Team may be reached at . Antibiotic [...] Please refer to the card with the [place] Heart Association Guidelines for more information. You [...] Dr. Hayder Graham. You may use a [place] Track or treadmill but avoid any pulling [...] friends, go to a movie, go to baptism, etc. Heavy activities: No hunting, skiing, jogging, [...] should resume a low fat, low cholesterol, [place] Heart Association Diet. Driving: No driving until [...] while being managed by your PCP and/or Forensic Manager. For future medication refills, please refer to your PCP and/or Forensic Manager after your discharge from our service. Thank you REMOVE CHEST TUBE SUTURES ON OR AFTER 03/02/24 Home oxygen therapy: N/A Follow up appointments: You should follow up with your PCP, Aparna Jordan APRN, in 1-2 weeks. Our office will schedule an appointment with your Forensic Manager, Neftali Ernandez MD , in 2 weeks. You have an appointment with your Cardiac Surgeon, Dr. Hayder Graham, 4 weeks with a chest x-ray, EKG, and Echo before your appointment. Cardiac Rehabilitation: Karlos Garcia was seen regarding participation in the outpatient Phase 2Cardiac Rehabilitation at [facility]. The patient agrees to a referral to this program. The referral will be sent at discharge and the patient should be contacted by the Program within 1- 2 weeks from discharge. Future Appointments and Orders Future Orders Complete By Expires Echocardiogram Transthoracic [30228 CPT(R)] 03/26/2024 09/25/2024 Process Instructions: Scheduling Instructions: Questions: Where will study be performed?: [facility] Clinics Does the patient have Congenital Heart Disease?: Does patient require sedation?: Sedation rationale: XR Chest PA & Lateral (Generic) [89659 42444 Custom] 03/26/2024 09/25/2024 Process Instructions: Scheduling Instructions: Questions: Portable exam?: Reason for exam and clinical history: s/p avr/cabg Clinical information / jerome questions for radiologist: Stat read required?: Date of injury if applicable: Requested Time: Where will study be performed?: [facility] Radiology Referral to Cardiac Rehab [GQR036 Custom] As directed Process Instructions: If no progress note charted, please enter Clinical details in comments. Scheduling Instructions: Questions: My question or request is: s/p AVR/CABG. Cardiac rehab at [facility]. Referral to Home Health [REF34 Custom] As directed Process Instructions: If no progress note charted, please enter Clinical details in comments. Scheduling Instructions: Comments: Please evaluate Karlos Garcia for admission to Home Health. [address] Phone Number: Date of : 1960 Inpatient DOCUMENTATION FOR VNA SERVICES (INCLUDING THOSE PATIENTS WITH MEDICARE COVERAGE REQUIRING HOME VNA SERVICES AND/OR HOSPICE SERVICES) PATIENT'S LOCATION: Karlos Garcia [address] Med fusion [phone] Nip Wrapper's Name: self/family In discussion with the attending physician, it is certified that this patient is under their care and that they, or a Nurse Practitioner, or Physician Inside Wireman who is working directly with them, hada [...] for services as follows: HOME HEALTH AGENCY: [facility] [address] [place] [phone] RN orders: Cardiopulmonary assessment, incisional assessment, assess [...] issues please call the Cardiology Office at [phone] FOR MEDICARE ONLY: (please delete this section [...] care: As above. Signed: NEFTALI MENON PA-C [facility] Section of Cardiac Surgery [facility] [phone] FAX [phone] Date: 02/24/2024 CC: Aparna Jordan, MAURI Jordan, Aparna Sherman APRN [address] [place] [address] documented in this encounter Discharge Instructions * [...] Hayder Graham and/or the Cardiac Surgery Physician Inside Wireman Team may be reached at . Antibiotic [...] Please refer to the card with the [place] Heart Association Guidelines for more information. You [...] Dr. Hayder Graham. You may use a [place] Track or treadmill but avoid any pulling [...] friends, go to a movie, go to baptism, etc. Heavy activities: No hunting, skiing, jogging, [...] should resume a low fat, low cholesterol, [place] Heart Association Diet. Driving: No driving until [...] while being managed by your PCP and/or Forensic Manager. For future medication refills, please refer to your PCP and/or Forensic Manager after your discharge from our service. Thank you REMOVE CHEST TUBE SUTURES ON OR AFTER 03/02/24 Home oxygen therapy: N/A Follow up appointments: You should follow up with your PCP, Aparna Jordan APRN, in 1-2 weeks. Our office will schedule an appointment with your Forensic Manager, Neftali Ernandez MD , in 2 weeks. You have an appointment with your Cardiac Surgeon, Dr. Hayder Graham, 4 weeks with a chest x-ray, EKG, and Echo before your appointment. Cardiac Rehabilitation: Karlos Garcia was seen regarding participation in the outpatient Phase 2Cardiac Rehabilitation at [facility]. The patient agrees to a referral [...] 0600 and on the weekends please page [phone]. * Eric Barahona PA - 02/23/2024 9:27 [...] 0600 and on the weekends please page [phone]. * Tiffanie Owens - 02/22/2024 2:48 PM [...] Pt reports his dtr is coming from [place] to stay upon d/c for 10 days. Pt was indep ENCAPSULATOR. He drives. He works Precautions/Special Considerations: STERNAL [...] LRAD and supervision Time IN / OUT: 1492-5753 Total Time: 30 minutes; TEFx2 Tiffanie Owens Pager: [phone] Physical Therapy Inpatient Rehabilitation Department * Romeo [...] 0600 and on the weekends please page [phone]. * Kelley Hinson PTA - 02/21/2024 10:15 [...] Pt reports his dtr is coming from [place] to stay upon d/c for 10 days. Pt was indep ENCAPSULATOR. He drives. He works Precautions/Special Considerations: STERNAL [...] LRAD and supervision Time IN / OUT: 7126-3977 Total Time: 25 minutes; TEF 2 Kelley Hinson PTA Pager: [phone] Physical Therapy Inpatient Rehabilitation Department * Louisa [...] 0600 and on the weekends please page [phone]. * Kelley Hinson PTA - 02/20/2024 3:32 PM EDT 02/20/24 3825 Evaluation & Treatment Document Type contact Total Minutes, Physical Therapy 0 Comment, Session Not Performed Checked in w/ pt this PM for ongoing PT services, pt politely declined, stating he had been dealing w/ nausea all day, made plan to see him tomorrow morning, will f/u at that time Kelley Hinson PTA Pager: [phone] Physical Therapy Inpatient Rehab Department * Louisa [...] 0600 and on the weekends please page [phone]. * Maris Benavides, PT - 02/19/2024 11:22 [...] Pt reports his dtr is coming from [place] to stay upon d/c for 10 days. Pt was indep ENCAPSULATOR. He drives. He works. Precautions/Special Considerations: STERNAL [...] outlined inthis evaluation. MARIS BENAVIDES, PT Pager: [phone] Physical Therapy Inpatient Rehabilitation Department Time IN / OUT: 6310-0641 Total Time: 38 (eval) minutes; * Antonio [...] 0600 and on the weekends please page [phone]. * Minnie Begum PA - 02/18/2024 8:25 [...] site CDI with SANJANA wrap Tubes/Lines/Drains: RIJ/PAC, Borden, Med Ctx, L pleural CT, TPW, Anqvi Assessment/Plan: 63 y.o. male 1 Day Post-Op [...] 0600 and on the weekends please page [phone]. * Kim Ha RCP - 02/17/2024 2:25 [...] plan since last visit. Hayder Graham MD [phone] Source Note - Hayder Graham MD - [...] given written informed consent. Hayder Graham MD [phone] * Hayder Graham MD - 02/17/2024 7:00 [...] insufficiency. He has glaucoma. He used to [email or web address] until about 15 years ago. He has [...] given written informed consent. Hayder Graham MD [phone] documented in this encounter Miscellaneous Notes * [...] information for follow-up Home Health & Hospice, [address] [place] [address] Cardiac Rehab, [facility] [address] [place] [address] [place] [address] Transportation: family or friend will provide Functional status prior to admission: Independent Home Environment: Others in the home: alone. Current Living Arrangements: home/apartment/condo. Accessibility Concerns:a few steps to enter 1 floor home. Current Functional Ability: Assistive Person and Equipment DME used at home: none DME Needed at Discharge: N/A Patient is insured through: Primary Insurance: [facility] Payor: [facility] / Plan: [facility] PPO / Product Type: *No Product [...] pain managed with scheduled Tylenol. Worked with Anke. Ambulated in the roque multiple times during [...] anticipated Patient is insured through: Primary Insurance: [facility] Payor: [facility] / Plan: [facility] PPO / Product Type: *No Product type* / Secondary Insurance: N/A Last Physical Therapy Recommendation: home with home health (Str coming to stay for a week or two upon d/c) with to be determined (owns rolling walker, shower seat) Plan for discharge is: Home w/ Services Outpatient Agency/Support Group Needs: Homecare agency Home Health Services: Physical Therapy, Registered Nurse Agency Referrals: [facility]. [address] [place] [address] Transportation: family or friend will provide Barriers to discharge: Discharge planning Plan going forward: Service Care Management will continue to follow and assist with discharge planning and coordination of care as indicated. Anticipated Date of Discharge: 02/22/2024 Rhett Bell RN RN/CM - Cellphone: [phone] Pager: [phone] Covering Service RN/CM * Plan of Care [...] Yang RN - 02/19/2024 10:44 AM EDT [facility] Karlos Garcia was seen today regarding participation in the outpatient Phase 2 Cardiac Rehabilitation at [facility]. The patient agrees to a referral [...] Hypertension 08/14/2023 Nevus of face 09/26/2023 Right mormon Hospitalizations Within the Past 30 Days: no previous admission in last 30 days Current Decision-Making Capacity: Self If AD's have not been completed the following surrogate would be surrogate decision maker per [place] surrogate decision making law. (Only good for 180 days) Any patient receiving care in [place] must abide by [place] law. The hierarchy for surrogate decision making [...] (i) The agent with financial power of attorney at law or a conservator appointed in accordance with [...] In the past 12 months has the abeo, gas, oil, or water [employer] threatened to shut off services in your [...] confirmed as: [address] [facility] [address] Physical address: [address] [facility], [address] Social & Family Supports: All names listed [...] Information: none noted Health/Prescription Coverage: Primary Insurance: [facility] Payor: [facility] / Plan: [facility] PPO / Product Type: *No Product type* / Secondary Insurance: N/A ; Prescription Coverage: Yes Preferred Pharmacy: [id number] [address] [place] Status: Patient is a : No Primary Care Provider confirmed: Aparna Jordan, HUMAN DEVELOPMENT PROFESSOR [phone] Patient/Caregiver Goals of Treatment: dc to home Potential Needs for Transition of Care: home health care Agency Referrals: I have met with the patient to: discuss discharge planning needs. provide the [facility], Office of Care Management letter from the Performance Improvement Director pertaining to rehab referrals. provide a letter describing our affiliations within the [facility] and educate about their right to choose where referrals are sent. provide a list of Home Health Agencies / Durable Medical Equipment vendors which serve their preferred geographic area. provided patient with [facility] Star Quality Rating handout. They have requested referrals to: [facility] [address] [place] [address] Note routed to a Biological Sciences Professor who will communicate referrals to facilities and [...] daughter, Cielo, will be coming in from [place] on 02/18, to stay with him , in his home ,at discharge. Pt states that she is able to provide support/assist for any needs that he may have when discharged. Plan: dc to home A member of the Care Management team will continue to monitor progress, follow for continuity of care and assist with transition of care planning. Reina Greene RN CM, BSN, [facility]- Ext [phone] * Plan of Care - Binta Trinidad [...] Operative Note Patient Name: Karlos Garcia : [id number] MR#: [id number] Case Date: 02/17/2024 Surgeon: Surgeon(s) and Role: * Hayder Graham MD - Primary * Neftali Menon PA - Physician Inside Wireman Preoperative diagnosis: CAD Postoperative diagnosis: CAD, intraoperative [...] mL Drains: Mediastinal and Left pleural Disposition: [facility] Condition: doing well without problems Attestation: Case Date: 02/17/2024 I performed this procedure without the involvement of a resident. HAYDER GRAHAM MD 02/17/2024 * Op Note - Hayder Graham MD - 02/17/2024 8:20 AM EDT [facility] Operative Note Patient Name: Karlos Garcia : [id number] MR#: [id number] Case Date: 02/17/2024 Surgeon: Surgeons and Role: * Hayder Graham MD - Primary * Neftali Menon PA - Physician Inside Wireman Preoperative diagnosis: CAD Postoperative diagnosis: CAD, intraoperative [...] mL Drains: Mediastinal and Left pleural Disposition: [facility] Procedure Description: The patient was brought to [...] AM EDT Office Visit Cardiology at [address] [address] Neftali Ernandez MD [facility] [address] Scheduled Orders Name Type Priority Associated Diagnoses [...] Aortic Valve Open W Cardiopulmonary Bypass Homogrf/Stent (43740) Yes 02/17/2024 7:28 AM EDT CAD Cabg, Artery-Vein, Two (76762) Yes 02/17/2024 7:28 AM EDT CAD Cabg, Arterial, Single (62049) Yes 02/17/2024 7:28 AM EDT CAD Endoscopy W/Video-Asst Vein [place], Cabg (17523) Yes 02/17/2024 7:28 AM EDT CAD POCT [...] MD CHEMISTRY ORDERABLE S [facility] [place] [address] * (ABNORMAL) Basic Metabolic Panel (non-fasting) (02/23/2024 4:24 AM EDT) Glucose 117 65 - 199 mg/dL [facility] [...] Carpio MD CHEMISTRY ORDERABLES [facility] [place] [address] * Potassium (02/22/2024 4:30 AM EDT) Potassium [...] MD CHEMISTRY ORDERABLE S [facility] [place] [address] * (ABNORMAL) Basic Metabolic Panel (non-fasting) (02/21/2024 9:45 AM EDT) Glucose 123 65 - 199 mg/dL [facility] Comment:Diabetes: >=200 mg/d L plus symptoms Blood Urea Nitrogen 22(H) 10 - 20 mg/dL [facility] [...] 107 mmol/L [facility] Carbon Dioxide Not Perf 22 - 31 [facility] Comment:Add-on request. Samp le too old to perform test. Anion Gap Unable to Calculate 5 - 15 mmol/L [facility] Calcium 8.6 8.5 - 10.5 mg/dL [facility] Est Glomerular Filtration Rate 100 >=60 mL/min/1 .73 m?? [facility] [...] Carpio MD CHEMISTRY ORDERABLES [facility] [place] [address] * Lactate, whole blood, send to lab ([facility] (02/21/2024 9:45 AM EDT) [facility] Lactate WB 2.0 0.5 - 2.2 mmol/L [facility] Blood 02/21/2024 9:45 AM EDT 02/21/2024 9:52 AM EDT Narrative Resulting Agency Comment Spec In Lab Hayder Graham MD CHEMISTRY ORDERABLE S Performing Organization Address [facility]/ZIP Co de Phone Number [facility] [place] [address] * (ABNORMAL) Hepatic Function Panel (02/21/2024 9:45 AM EDT) [facility] Protein, Total 5.7(L) 6.1 - 8.0 g/dL [...] MD CHEMISTRY ORDERABLE S Performing Organization Address City/[facility]/ZIP Co de Phone Number [facility] [place] [address] * Lipase (02/21/2024 9:45 AM EDT) Lipase 56 0 - 60 unit/L [facility] Blood 02/21/2024 9:45 AM EDT 02/21/2024 9:52 AM EDT Narrative Resulting Agency Comment Spec In Lab Hayder Graham MD CHEMISTRY ORDERABLE S Performing Organization Address City/[facility]/ZIP Co de Phone Number [facility] [place] [address] * Amylase (02/21/2024 9:45 AM EDT) Amylase 69 28 - 100 unit/L [facility] Blood 02/21/2024 9:45 AM EDT 02/21/2024 9:52 AM EDT Narrative Resulting Agency Comment Spec In Lab Hayder Graham MD CHEMISTRY ORDERABLE S Performing Organization Address [facility] Co de Phone Number [facility] [place] [address] * Potassium (02/21/2024 3:08 AM EDT) [facility] Potassium 3.8 3.5 - 5.0 mmol/L [facility] [...] MD CHEMISTRY ORDERABLE S Performing Organization Address City/[facility]/ZIP Co de Phone Number [facility] [place] [address] * XR Chest PA & Lateral (Generic) (02/20/2024 10:19 AM EDT) [facility] WORKSTATION ID [id number] RAD Anatomical Region Laterality Modality Chest N/A Digital Radiogra phy Impressions 02/20/2024 1:11 PM EDT Small pleural effusions. No pneumothorax Thank you for letting us participate in the care of this patient. ??If you are a health care provider and have any questions regarding this report, please contact the number below. ??For patients who have questions please contact the health field care manager that requested your imaging first. ? Narrative 02/20/2024 1:11 PM EDT EXAMINATION: XR CHEST PA AND LATERAL (GENERIC) CLINICAL HISTORY: s/p AVR/CABGx3 TECHNIQUE: PA and lateral views of the chest COMPARISON: 02/17/2024 FINDINGS: Support devices: Interval removal of [place] catheter, endotracheal tube and mediastinal chest tubes The cardiac silhouette is stable status post median sternotomy, CABG and aortic valve replacement. There are small pleural effusions. No pneumothorax. Procedure Note Rogerio Cruz MD - 02/20/2024 EXAMINATION: XR CHEST PA AND LATERAL (GENERIC) CLINICAL HISTORY: s/p AVR/CABGx3 TECHNIQUE: PA and lateral views of the chest COMPARISON: 02/17/2024 FINDINGS: Support devices: Interval removal of [place] catheter, endotracheal tubeand mediastinal chest tubes The [...] patients who have questions please contactthe health field care manager that requested your imaging first. Hayder Graham MD IMG DX ORDERABLES * Scan, Peripheral Blood (02/20/2024 4:23 AM EDT) Pathologist [facility] Plat estimate Decreased [facility] RBC Morphology Normal [facility] Blood 02/20/2024 4:23 AM EDT 02/20/2024 4:42 AM EDT Narrative Resulting Agency Comment Spec In Lab Minnie FRENCH HEMATOLOGY CECILIO ALEMAN [facility] [place] [address] * (ABNORMAL) Differential, Automated (02/20/2024 4:23 AM EDT) [facility] Neutrophil % 81.7 % [facility] Neutrophil Absolute 10.37(H) 1.70 - 6.10 x10(3)/mc L [facility] Lymph % 7.4 % [facility] Lymphocytes Abs 0.9 0.9 - 3.2 x10(3)/mc L [facility] Monocyte % 9.7 % [facility] Monocyte Abs 1.2(H) 0.3 - 0.9 x10(3)/mc L [facility] Eos % 0.1 % [facility] Eosinophils Abs 0.0 0.0 - 0.4 x10(3)/mc L [facility] Basophil % 0.2 % [facility] Baso Absolute 0.0 0.0 - [...] Absolute 0.12(H) 0.00 - 0.04 x10(3)/mc L [facility] Blood 02/20/2024 4:23 AM EDT 02/20/2024 4:42 AM EDT Narrative Resulting Agency Comment Spec In Lab Minnie FRENCH HEMATOLOGY CECILIO ALEMAN [facility] [place] [address] * (ABNORMAL) Hemogram (02/20/2024 4:23 AM EDT) [...] Standard Deviation 43.5 36.0 - 45.0 fL [facility] RDW coefficient of variation 13.7 11.4 - 13.8 % [facility] Mean Platelet Volume 10.2 7.6 - 12.9 fL [facility] NRBC% auto 0.0 % [facility] NRBC Absolute 0.000 0.000 - 0.000 x10(3)/mc L [facility] Blood 02/20/2024 4:23 AM EDT 02/20/2024 4:42 AM EDT Narrative Resulting Agency Comment Spec In Lab Minnie FRENCH HEMATOLOGY CECILIO ALEMAN [facility] [place] [address] * (ABNORMAL) Basic Metabolic Panel (non-fasting) (02/20/2024 4:23 AM EDT) Glucose 113 65 - 199 mg/dL [facility] Comment:Diabetes: >=200 mg/d L plus symptoms Blood Urea Nitrogen 20 10 - 20 mg/dL [facility] 107 mmol/L [facility] Carbon Dioxide 25 22 - 31 mmol/L [facility] Anion Gap 8 5 - 15 mmol/L [facility] Calcium 8.7 8.5 - 10.5 mg/dL [facility] Comment:result rechecked-KS Est Glomerular Filtration [...] MD CHEMISTRY ORDERABLE S Performing Organization Address [facility] Co de Phone Number [facility] [place] [address] * Potassium (02/19/2024 3:57 AM EDT) Potassium [...] MD CHEMISTRY ORDERABLE S Performing Organization Address [facility] Co de Phone Number [facility] [place] [address] * POCT Glucose (02/18/2024 8:24 AM EDT) Glucose, POC 157 65 - 199 mg/dL [facility] Comment: Supplemental ranges: <140 mg/dL before meals <180 mg/dL all other times of the day Blood 02/18/2024 8:24 AM EDT 02/18/2024 8:24 AM EDT Hayder Graham MD POINT [place] [address] * Scan, Peripheral Blood (02/18/2024 1:40 AM EDT) Pathologist [facility] Plat estimate Decreased [facility] RBC Morphology Normal [facility] Blood 02/18/2024 1:40 AM EDT 02/18/2024 1:56 AM EDT Narrative Resulting Agency Comment Spec In Lab Neftali FRENCH HEMATOLOGY ORDER OLE Performing Organization Address City/[facility]/ZIP Co de Phone Number [facility] [place] [address] * (ABNORMAL) Differential, Automated (02/18/2024 1:40 AM EDT) [facility] Neutrophil % 87.1 % [facility] Neutrophil Absolute 15.03(H) 1.70 - 6.10 x10(3)/mc L [facility] Lymph % 3.0 % [facility] Lymphocytes Abs 0.5(L) 0.9 - 3.2 x10(3)/mc L [facility] Monocyte % 9.1 % [facility] Monocyte Abs 1.6(H) 0.3 - 0.9 x10(3)/mc L [facility] Eos % 0.0 % [facility] Eosinophils Abs 0.0 0.0 - 0.4 x10(3)/mc L [facility] Basophil % 0.2 % [facility] Baso Absolute 0.0 0.0 - [...] Absolute 0.10(H) 0.00 - 0.04 x10(3)/ L [facility] Blood 02/18/2024 1:40 AM EDT 02/18/2024 1:56 AM EDT Narrative Resulting Agency Comment Spec In Lab Neftali FRENCH HEMATOLOGY ORDER OLE [facility] [place] [address] * (ABNORMAL) Hemogram (02/18/2024 1:40 AM EDT) White Blood Cell 17.2(H) 4.0 - 9.5 x10(3)/[facility] Red Blood Cell 4.71 4.58 - 5.54 x10(6)/[facility] Hemoglobin 13.7 13.7 - 16.5 g/dL [facility] Hematocrit 39.2(L) 40.5 - 48.5 % [facility] Mean Cell Volume 83.2 82.9 - 93.1 [facility] Mean Cell Hemoglobin 29.1 27.5 - 32.1 pg [facility] Mean Cell Hemoglobin Concentration 34.9 32.0 - 35.7 g/dL [facility] Platelet 147 145 - 357 x10(3)/mc L [facility] RDW Standard Deviation 39.9 36.0 - 45.0 [facility] RDW coefficient of variation 13.2 11.4 - 13.8 % [facility] Mean Platelet Volume 9.9 7.6 - 12.9 [facility] NRBC% auto 0.0 % [facility] NRBC Absolute 0.000 0.000 - 0.000 x10(3)/ L [facility] Blood 02/18/2024 1:40 AM EDT 02/18/2024 1:56 AM EDT Narrative Resulting Agency Comment Spec In Lab Neftali FRENCH HEMATOLOGY ORDER OLE [facility] [place] [address] * (ABNORMAL) Basic Metabolic Panel (non-fasting) (02/18/2024 1:40 AM EDT) Glucose 176 65 - 199 mg/dL [facility] Comment:Diabetes: >=200 mg/d L plus symptoms Blood Urea Nitrogen 10 10 - 20 mg/dL [facility] [...] 107 mmol/L [facility] Carbon Dioxide 20(L) 22 - 31 mmol/L [facility] Anion Gap 9 5 - 15 mmol/L [facility] Calcium 7.6(L) 8.5 - 10.5 mg/dL [facility] Est Glomerular Filtration Rate 105 >=60 mL/min/1. 73 m?? [facility] [...] MD CHEMISTRY ORDERABLE S [facility] [place] [address] * (ABNORMAL) Troponin (02/18/2024 1:40 AM EDT) Troponin-T, High Sensitivity 342(H) <=22 ng/L [facility] [...] troponin value can be found in the [facility] Test Catalog Troponin - [facility] Test Catalog Reference: Fourth Datil Definition of Myocardial Infarction. Journal of the [place] [employer] 2018;72:8917-6183 Blood 02/18/2024 1:40 AM EDT 02/18/2024 1:56 AM EDT Narrative Resulting Agency Comment Spec In Lab Hayder Graham MD CHEMISTRY ORDERABLE S [facility] [place] [address] * POCT Glucose (02/17/2024 8:13 PM EDT) Glucose, POC 142 65 - 199 mg/dL [facility] Comment: Supplemental ranges: <140 mg/dL before meals <180 mg/dL all other times of the day Blood 02/17/2024 8:13 PM EDT 02/17/2024 8:13 PM EDT Hayder Graham MD POINT OF CARE TEST ORDERABLES Performing Organization Address [facility] Co de Phone Number [facility] [place] [address] * POCT Glucose (02/17/2024 5:42 PM EDT) Glucose, POC 160 65 - 199 mg/dL [facility] Comment: Supplemental ranges: <140 mg/dL before meals <180 mg/dL all other times of the day Blood 02/17/2024 5:42 PM EDT 02/17/2024 5:42 PM EDT Hayder Graham MD POINT OF CARE TEST ORDERABLES Performing Organization Address [facility] Co de Phone Number [facility] [place] [address] * Hemoglobin (02/17/2024 5:42 PM EDT) Hemoglobin 13.7 13.7 - 16.5 g/dL [facility] Blood 02/17/2024 5:42 PM EDT 02/17/2024 6:10 PM EDT Narrative Resulting Agency Comment Spec In Lab Hayder Graham MD HEMATOLOGY ORDERABL ES Performing Organization Address City/[facility]/ZIP Co de Phone Number [facility] [place] [address] * Potassium (02/17/2024 5:42 PM EDT) Potassium [...] MD CHEMISTRY ORDERABLE S [facility] [place] [address] * (ABNORMAL) BLOOD GAS 2 ARTERIAL (02/17/2024 4:18 PM EDT) pH, Arterial 7.34(L) 7.35 - 7.45 [facility] [...] [facility] FIO2 Art 40 % [facility] PF Ratio Art 195 [facility] Blood 02/17/2024 4:18 PM EDT 02/17/2024 4:18 PM EDT Hayder Graham MD POINT OF CARE TEST ORDERABLES [facility] [place] [address] * XR Chest One View (02/17/2024 1:44 PM EDT) [email or web address] WORKSTATION ID [id number] RAD Anatomical Region Laterality Modality Chest N/A Digital Radiogra phy Impressions 02/17/2024 2:12 PM EDT 1. ??No definite pleural fluid collection or pneumothorax. 2. ??Right IJ [place] catheter tip terminates in a descending branch of the right pulmonary artery. Suggest catheter retraction. 3. ??Additional support lines and tubes as above. Thank you for letting us participate in the care of this patient. ??If you are a health care provider and have any questions regarding this report, please contact the number below. ??For patients who have questions please contact the health field care manager that requested your imaging first. ? Electronically signed by: Denzel Hankins MD, [facility] ??([phone]), at 02/17/2024 2:12 PM Narrative 02/17/2024 2:12 PM EDT EXAMINATION: XR CHEST ONE VIEW CLINICAL HISTORY: s/p avr/cabg eval effusions TECHNIQUE: 1 view of the chest COMPARISON: Chest x-ray 01/09/2024, chest CT 02/03/2024 FINDINGS: ET tube tip terminates 5.2 cm above the carlos. Right IJ [place] catheter tip terminates in a descending branch [...] 5.2 cm above the carlos. Right IJ [place]-Ganzcatheter tip terminates in a descending branch of [...] fluid collection or pneumothorax. 2. Right IJ [place] catheter tip terminates in a descending branch ofthe right pulmonary artery. Suggest catheter retraction. 3. Additional support lines and tubes as above. Thank you for letting us participate in the care of this patient. If youare a health care provider and have any questions regarding this report,please contact the number below. For patients who have questions please contactthe health field care manager that requested your imaging first. Hayder Graham MD IMG DX ORDERABLES * (ABNORMAL) BLOOD GAS 2 ARTERIAL (02/17/2024 1:31 PM EDT) pH, Arterial 7.35 7.35 - 7.45 [facility] PCO2, Arterial 39 35 - 45 mmHg [facility] PO2, Arterial 320(H) 85 - 104 mmHg [facility] Bicarbonate, Arterial 21.4 20.0 - 26.0 mmol/L [facility] Base Excess, Arterial -4.2(L) -3.0 - 3.0 mmol/L [facility] Hgb Blood Gas 14.1 13.7 - 16.5 g/dL [facility] Oxyhemoglobin, Arterial 97.9(H) 94.0 - 97.0 % [facility] Carboxyhemoglob in, Arterial 0.3 % [facility] Comment: Nonsmokers: 0.5-1.5% COHB Smokers: Variable, but usually less than 10% Toxic: 20-30% COHB Lethal: Greater than 60% COHB Methemoglobin, Arterial 0.7 <=1.5 % [facility] Na Whole Blood 137 135 [...] [facility] FIO2 Art 100 % [facility] PF Ratio Art 320 [facility] Blood 02/17/2024 1:31 PM EDT 02/17/2024 1:31 PM EDT Hayder Graham MD POINT OF CARE TEST ORDERABLES Performing Organization Address City/State/[facility] Co de Phone Number [facility] [place] [address] * (ABNORMAL) Coox2 (02/17/2024 1:21 PM EDT) pO2, Coox 44 mmHg [facility] Hgb [...] OF CARE TEST ORDERABLES [facility] [place] [address] * (ABNORMAL) BLOOD GAS 2 ARTERIAL (02/17/2024 12:14 PM EDT) pH, Arterial 7.39 7.35 - 7.45 [facility] PCO2, Arterial 40 35 - 45 mmHg [facility] PO2, Arterial 338(H) 85 - 104 mmHg [facility] Bicarbonate, Arterial 23.7 20.0 - 26.0 mmol/L [facility] Base Excess, Arterial -1.3 -3.0 - 3.0 mmol/L [facility] Hgb Blood Gas 11.0(L) 13.7 - 16.5 g/dL [facility] Oxyhemoglobin, Arterial 98.8(H) 94.0 - 97.0 % [facility] Carboxyhemoglob in, Arterial 0.3 % [facility] Comment: Nonsmokers: 0.5-1.5% COHB Smokers: Variable, but usually less than 10% Toxic: 20-30% COHB Lethal: Greater than 60% COHB Methemoglobin, Arterial 0.3 <=1.5 % [facility] Na Whole Blood 135 135 [...] OF CARE TEST ORDERABLES Performing Organization Address [facility] Co de Phone Number [facility] [place] [address] * (ABNORMAL) Fibrinogen (02/17/2024 12:10 PM EDT) [...] MD HEMATOLOGY ORDERABLE S Performing Organization Address [facility] Co de Phone Number [facility] [place] [address] * (ABNORMAL) Thrombin time (02/17/2024 12:10 PM [...] MD HEMATOLOGY ORDERABLE S Performing Organization Address [facility] Co de Phone Number [facility] [place] [address] * APTT (02/17/2024 12:10 PM EDT) Partial [...] MD HEMATOLOGY ORDERABLE S Performing Organization Address [facility] Co de Phone Number [facility] [place] [address] * (ABNORMAL) Prothrombin Time (02/17/2024 12:10 PM [...] MD HEMATOLOGY ORDERABLE S [facility] [place] [address] * (ABNORMAL) Hemogram (02/17/2024 12:10 PM EDT) White Blood Cell 11.1(H) 4.0 - 9.5 x10(3)/mc L [facility] Red Blood Cell 3.50(L) 4.58 - 5.54 x10(6)/mc L [facility] Hemoglobin 10.4(L) 13.7 - 16.5 g/dL [facility] Hematocrit 30.2(L) 40.5 - 48.5 % [facility] Comment: This result has been called to ALONDRA PAGAN by Eddie López on 02 17 2024 at 1226, and has been read back. Mean Cell Volume 86.3 82.9 - 93.1 fL [facility] Mean Cell Hemoglobin 29.7 27.5 - 32.1 pg [facility] Mean Cell Hemoglobin Concentration 34.4 32.0 - 35.7 g/dL [facility] Platelet 118(L) 145 - 357 x10(3)/mc L [facility] RDW Standard Deviation 40.2 36.0 - 45.0 fL [facility] RDW coefficient of variation 12.8 11.4 - 13.8 % [facility] Mean Platelet Volume 9.5 7.6 - 12.9 fL [facility] NRBC% auto 0.0 % [facility] NRBC Absolute 0.000 0.000 - 0.000 x10(3)/mc L [facility] Blood 02/17/2024 12:1 0 PM EDT 02/17/2024 12:19 PM EDT Narrative Resulting Agency Comment Spec In Lab Tara York MD HEMATOLOGY ORDERABLE S [facility] [place] [address] * (ABNORMAL) BLOOD GAS 2 ARTERIAL (02/17/2024 11:43 AM EDT) pH, Arterial 7.38 7.35 - 7.45 [facility] PCO2, Arterial 40 35 - 45 mmHg [facility] PO2, Arterial 304(H) 85 - 104 mmHg [facility] Bicarbonate, Arterial 23.2 20.0 - 26.0 mmol/L [facility] Base Excess, Arterial -1.9 -3.0 - 3.0 mmol/L [facility] Hgb Blood Gas 11.1(L) 13.7 - 16.5 g/dL [facility] Oxyhemoglobin, Arterial 98.6(H) 94.0 - 97.0 % [facility] Carboxyhemoglob in, Arterial 0.3 % [facility] Comment: Nonsmokers: 0.5-1.5% COHB Smokers: Variable, but usually less than 10% Toxic: 20-30% COHB Lethal: Greater than 60% COHB Methemoglobin, Arterial 0.3 <=1.5 % [facility] Na Whole Blood 133(L) 135 - 145 mmol/L [facility] K Whole Blood 6.2(Critic al) 3.5 - 5.0 mmol/L [facility] Comment: Noted by reed or wind instrument tuner. Please note: Patients with WBC >100,000 may [...] OF CARE TEST ORDERABLES [facility] [place] [address] * (ABNORMAL) BLOOD GAS 2 ARTERIAL (02/17/2024 11:08 AM EDT) pH, Arterial 7.38 7.35 - 7.45 [facility] PCO2, Arterial 38 35 - 45 mmHg [facility] PO2, Arterial 334(H) 85 - 104 mmHg [facility] Bicarbonate, Arterial 22.0 20.0 - 26.0 mmol/L [facility] Base Excess, Arterial -3.2(L) -3.0 - 3.0 mmol/L [facility] Hgb Blood Gas 10.8(L) 13.7 - 16.5 g/dL [facility] Oxyhemoglobin, Arterial 98.7(H) 94.0 - 97.0 % [facility] Carboxyhemoglob in, Arterial 0.3 % [facility] Comment: Nonsmokers: 0.5-1.5% COHB Smokers: Variable, but usually less than 10% Toxic: 20-30% COHB Lethal: Greater than 60% COHB Methemoglobin, Arterial 0.3 <=1.5 % [facility] Na Whole Blood 131(L) 135 - 145 mmol/L [facility] K Whole Blood 6.4(Critic al) 3.5 - 5.0 mmol/L [facility] Comment: Noted by reed or wind instrument tuner. Please note: Patients with WBC >100,000 may [...] OF CARE TEST ORDERABLES Performing Organization Address [facility] Co de Phone Number [facility] [place] [address] * (ABNORMAL) Hemoglobin and Hematocrit, blood (02/17/2024 [...] MD HEMATOLOGY ORDERABL ES Performing Organization Address [facility]/ZIP Co de Phone Number [facility] [place] [address] * (ABNORMAL) Platelet count (02/17/2024 11:04 AM EDT) Platelet 106(L) 145 - 357 x10(3)/mc L [facility] Immature Plt % 1.6 0.0 - 7.4 % [facility] Comment: Limitation of the Immature Platelet Fraction (IPF)-May be less reliable when the platelet count is less than 38f913/uL due to statistical imprecision. The IPF value [...] in a decreased state of production. References: [employer] The Clinical Value of the Immature Platelet Fraction (IPF) in Cell Recovery Document Number [id number] 03/2011 [employer] The Role of the Immature Platelet Fraction (IPF) in the Differential Diagnosis of Thrombocytopenia, Document [id number] V002/15/14 Blood 02/17/2024 11:0 4 AM EDT 02/17/2024 11:12 AM EDT Narrative Resulting Agency Comment Spec In Lab Hayder Graham MD HEMATOLOGY ORDERABL ES Performing Organization Address City/State/[facility] Co de Phone Number [facility] [place] [address] * (ABNORMAL) Fibrinogen (02/17/2024 11:04 AM EDT) [...] Lab Hayder Graham MD HEMATOLOGY ORDERABL ES [facility] [place] [address] * (ABNORMAL) BLOOD GAS 2 ARTERIAL (02/17/2024 10:41 AM EDT) pH, Arterial 7.37 7.35 - 7.45 [facility] PCO2, Arterial 44 35 - 45 mmHg [facility] PO2, Arterial 335(H) 85 - 104 mmHg [facility] Bicarbonate, Arterial 24.9 20.0 - 26.0 mmol/L [facility] Base Excess, Arterial -0.4 -3.0 - 3.0 mmol/L [facility] Hgb Blood Gas 11.5(L) 13.7 - 16.5 g/dL [facility] Oxyhemoglobin, Arterial 98.9(H) 94.0 - 97.0 % [facility] Carboxyhemoglob in, Arterial 0.1 % [facility] Comment: Nonsmokers: 0.5-1.5% COHB Smokers: Variable, but usually less than 10% Toxic: 20-30% COHB Lethal: Greater than 60% COHB Methemoglobin, Arterial 0.3 <=1.5 % [facility] Na Whole Blood 132(L) 135 [...] OF CARE TEST ORDERABLES [facility] [place] [address] * (ABNORMAL) BLOOD GAS 2 ARTERIAL (02/17/2024 10:06 AM EDT) pH, Arterial 7.38 7.35 - 7.45 [facility] PCO2, Arterial 42 35 - 45 mmHg [facility] PO2, Arterial 329(H) 85 - 104 mmHg [facility] Bicarbonate, Arterial 24.7 20.0 - 26.0 mmol/L [facility] Base Excess, Arterial -0.3 -3.0 - 3.0 mmol/L [facility] Hgb Blood Gas 11.0(L) 13.7 - 16.5 g/dL [facility] Oxyhemoglobin, Arterial 99.0(H) 94.0 - 97.0 % [facility] Carboxyhemoglob in, Arterial 0.3 % [facility] Comment: Nonsmokers: 0.5-1.5% COHB Smokers: Variable, but usually less than 10% Toxic: 20-30% COHB Lethal: Greater than 60% COHB Methemoglobin, Arterial 0.3 <=1.5 % [facility] Na Whole Blood 132(L) 135 [...] OF CARE TEST ORDERABLES [facility] [place] [id number] * Surgical Pathology Report (02/17/2024 10:01 AM EDT) Final Diagnosis [id number] ? Location: [facility]; [facility]; The signing pathologist has (i) examined the relevant preparation(s) for the specimen(s) and (ii) rendered or confirmed the diagnosis(es). . ?Surgical Pathology DIAGNOSIS Aortic valve leaflets, excision: Valve leaflets with myxoid degeneration, nodular fibrosis and dystrophic calcifications. Electronically signed by: ?Livier Montoya MD Verified: ??02/24/2024 13:49 ??Pathologist Performed at: ??-[facility] Dept. of [place]ology, [place] [address] Performance Improvement Director: Job Brewer MD, FCAP, ??IA Certificate: [id number] SPECIMEN(S) SUBMITTED A - Aortic Valve Leaflets, [...] Sections Processing Blocks submitted for decalcification: A1. Drill Hand sections in 1 cassette labeled A1. ??ajw 02/24/2024 1:49 PM EDT [facility] AORTIC STRUCTURE / Unknown 02/17/2024 10:01 AM EDT 02/17/2024 10:01 AM EDT Hayder Graham MD PATHOLOGY/CYTOLOGY ORDERABLES [facility] [place] [address] * Specimen to Pathology (02/17/2024 10:01 AM EDT) AP Specimen 02/17/2024 10:0 1 AM EDT 02/17/2024 10:01 AM EDT Narrative [facility] - 02/17/2024 10:01 AM EDT Specimen requisition ordered. ??Separate Pathology report to follow Hayder Graham MD PATHOLOGY/CYTOLOGY ORDERABLES [facility] [place] [address] * (ABNORMAL) BLOOD GAS 2 ARTERIAL (02/17/2024 9:35 AM EDT) pH, Arterial 7.33(L) 7.35 - 7.45 [facility] PCO2, Arterial 35 35 - 45 mmHg [facility] PO2, Arterial 318(H) 85 - 104 mmHg [facility] Bicarbonate, Arterial 17.9(L) 20.0 - 26.0 mmol/L [facility] Base Excess, Arterial -8.0(L) -3.0 - 3.0 mmol/L [facility] Hgb Blood Gas 11.0(L) 13.7 - 16.5 g/dL [facility] Oxyhemoglobin, Arterial 98.8(H) 94.0 - 97.0 % [facility] Carboxyhemoglob in, Arterial 0.3 % [facility] Comment: Nonsmokers: 0.5-1.5% COHB Smokers: Variable, but usually less than 10% Toxic: 20-30% COHB Lethal: Greater than 60% COHB Methemoglobin, Arterial 0.3 <=1.5 % [facility] Na Whole Blood 131(L) 135 [...] OF CARE TEST ORDERABLES [facility] [place] [address] * (ABNORMAL) BLOOD GAS 2 VENOUS (02/17/2024 9:34 AM EDT) pH, Venous 7.22(Criti marquez) 7.32 - 7.42 [facility] Comment:Noted by reed or wind instrument tuner. PCO2, Venous 43 41 - 51 mmHg [facility] Comment:Noted by reed or wind instrument tuner. PO2, Venous 57(H) 25 - 40 mmHg [facility] Comment:Noted by reed or wind instrument tuner. Bicarbonate, Venous 17.1 mmol/L [facility] Comment:Noted by reed or wind instrument tuner. Base Excess, Venous -10.6 mmol/L [facility] Comment:Noted by reed or wind instrument tuner. Hgb Blood Gas 11.2(L) 13.7 - 16.5 g/dL [facility] Comment:Noted by reed or wind instrument tuner. Oxyhemoglobin, Venous 86.5 % [facility] Comment:Noted by reed or wind instrument tuner. Carboxyhemoglob in, Venous 0.3 % [facility] Comment: Noted by reed or wind instrument tuner. Nonsmokers: 0.5-1.5% COHB Smokers: Variable, but usually less than 10% Toxic: 20-30% COHB Lethal: Greater than 60% COHB Methemoglobin, Venous 0.0 <=1.5 % [facility] Comment:Noted by reed or wind instrument tuner. Na Whole Blood 156(H) 135 - 145 mmol/L [facility] Comment:Noted by reed or wind instrument tuner. K Whole Blood 5.5(H) 3.5 - 5.0 mmol/L [facility] Comment: Noted by reed or wind instrument tuner. Please note: Patients with WBC >100,000 may have falsely elevated Potassium levels. Contact the Clinical Chemistry Laboratory if there are any questions. ICa Whole Blood 1.03(L) 1.15 - 1.33 mmol/L [facility] Comment: Noted by reed or wind instrument tuner. Note: ??Total bilirubin higher than 20 mg/dL may lead to falsely low ionized calcium. CL Whole Blood 100 98 - 107 mmol/L [facility] Comment:Noted by reed or wind instrument tuner. Gluc Whole Bld 132 65 - 199 mg/dL [facility] Comment: Noted by reed or wind instrument tuner. Diabetes: >=200 mg/dL plus symptoms Lactate WB 1.0 0.5 - 2.2 mmol/L [facility] Comment:Noted by reed or wind instrument tuner. Blood Gas Source Venous [facility] Blood 02/17/2024 9:34 AM EDT 02/17/2024 9:34 AM EDT Hayder Graham MD POINT OF CARE TEST ORDERABLES [facility] [place] [address] * (ABNORMAL) BLOOD GAS 2 ARTERIAL (02/17/2024 8:07 AM EDT) pH, Arterial 7.43 7.35 - 7.45 [facility] PCO2, Arterial 34(L) 35 - 45 mmHg [facility] PO2, Arterial 581(H) 85 - 104 mmHg [facility] Bicarbonate, Arterial 21.7 20.0 - 26.0 mmol/L [facility] Base Excess, Arterial -2.6 -3.0 - 3.0 mmol/L [facility] Hgb Blood Gas 14.5 13.7 - 16.5 g/dL [facility] Oxyhemoglobin, Arterial 99.0(H) 94.0 - 97.0 % [facility] Carboxyhemoglob in, Arterial 0.4 % [facility] Comment: Nonsmokers: 0.5-1.5% COHB Smokers: Variable, but usually less than 10% Toxic: 20-30% COHB Lethal: Greater than 60% COHB Methemoglobin, Arterial 0.3 <=1.5 % [facility] Na Whole Blood 139 135 [...] OF CARE TEST ORDERABLES Performing Organization Address [facility] Co de Phone Number [facility] [place] [address] * POCT Glucose (02/17/2024 6:38 AM EDT) Glucose, POC 98 65 - 199 mg/dL [facility] Comment: Supplemental ranges: <140 mg/dL before meals <180 mg/dL all other times of the day Blood 02/17/2024 6:38 AM EDT 02/17/2024 6:38 AM EDT Hayder Graham MD POINT OF CARE TEST ORDERABLES Performing Organization Address [facility] Co de Phone Number [facility] [place] [address] * Transesophageal Echo/OR (02/17/2024 6:33 AM EDT) [...] complete [facility] [...] Fibrillation 0821 (Given - Provider: Reilly Vincent RN)2057 (Given - Provider: Polo Britton RN) [...] Routine documented in this encounter Care Teams Transmission And Protection Engineer Relationship Specialty Start Date End Date Aparna Jordan APRN PCP - General Family Medicine 10/21/23 documented as of this encounter
--- OUTSIDE RECORDS SUMMARY | 2024-05-13 08:11 | XMS_ITS | Encounter Summary ---
Author Organization On License [facility] Address [facility] [place] [address] Care Team Providers Care Credit Card Associate Name Role Phone Vanessa Christian APRN Primary Care Provider [phone] Encounter Details Date Type Department Care Team [...] AM EDT Office Visit Cardiology at [address] [place] [address] Neftali Ernandez MD [facility] [place] [address] documented as of this encounter Visit Diagnoses Not on filedocumented in this encounter Care Teams Credit Card Associate Relationship Specialty Start Date End Date Vanessa Christian APRN PCP - General Family Medicine 10/21/23 documented as of this encounter
--- OUTSIDE RECORDS SUMMARY | 2024-05-13 08:12 | XMS_ITS | Encounter Summary ---
Author Organization [facility] Address [facility] [place] [address] Care Team Providers Care Officer Lieutenant Name Role Phone Vanessa Christian MAURI Primary Care Provider [phone] Encounter Details Date Type Department Care Team (Latest Contact Info) Description 01/09/2024 3:02 PM EDT - 01/09/2024 11:59 PM EDT Hospital Encounter XRay at [address] [place] [address] Zak Farmer MD [facility] [address] Nonrheumatic aortic valve stenosis Discharge Disposition: Home Social History Tobacco Use Types Packs/Day Years Used Date Smoking Tobacco: Former Cigarettes Smokeless Tobacco: Never Comments:Quit 15 + years ago Alcohol Use Standard Drinks/Week Comments Yes 0 (1 standard drink = 0.6 oz pur e alcohol) rare [facility] Inpatient Questions Answer Date Recorded Prevent Contact [...] AM EDT Office Visit Cardiology at [address] [place] [address] Neftali Ernandez MD [facility] [place] [address] documented as of this encounter Procedures Procedure [...] have questions please contact the health nurse care manager that requested your imaging first. ? Electronically signed by: Toby Dave MD, [facility] ([phone]), at 01/09/2024 3:11 PM Narrative 01/09/2024 3:11 [...] who have questions please contactthe health nurse care manager that requested your imaging first. Electronically signed by: Toby Dave MD, [facility]([phone]), at 01/09/2024 3:11 PM Zak Farmer MD IMG DX ORDERABLES documented in this encounter Visit Diagnoses Diagnosis Nonrheumatic aortic valve stenosis Aortic valve disorders documented in this encounter Care Teams Officer Lieutenant Relationship Specialty Start Date End Date Vanessa Christian APRN PCP - General Family Medicine 10/21/23 documented as of this encounter
--- OUTSIDE RECORDS SUMMARY | 2024-05-13 08:12 | XMS_ITS | Encounter Summary ---
Author Organization [facility] Address [facility] Ivana linareseileen [place] [id number] Care Team Providers Care Decision Support Analyst Name Role Phone Vanessa Christian MAURI Primary Care Provider [phone] Reason for Referral * Consultation (Routine) - Closed Specialty Diagnoses / Procedures Referred By Contac t Referred To Contact Cardiac Surgery Diagnoses Nonrheumatic aortic valve stenosis significant - TAVR ( defers to Card Surg d/t age) Errol Loya MD [facility] [place] [address] Zak Farmer MD [facility] [place] [address] Referral ID Status Reason Start Date Expiration Date V isits Requested Visits Authorized [id number] Closed Consult, Test & Treat 10/21/2023 10/20/2024 1 1 Reason for Visit * Reason Comments Chest Pain Shortness of Breath Aortic Stenosis Encounter Details Date Type Department Care Team (Late st Contact Info) Description 10/21/2023 1:20 PM EST Office Visit Cardiology at [address] [address] Errol Loya MD [facility] [place] [address] Nonrheumatic aortic valve stenosis Social History Tobacco [...] Problem List Diagnosis Aortic stenosis 12/2022 TTE ([facility]): VITA 0.8-0.9 cm2 (MG 28 mmHg, DOI 3.6 m/s, SVI 35 cc/m2). Trace regurgitation. Normal bi-v s/f, no other valve findings Gastroesophageal reflux Nevus of face Right evangelical Hypertension HLD (hyperlipidemia) MEDICATIONS: Current Outpatient Medications [...] meantime will refer to SHT at [facility] for further evaluation. Logistics [...] meantime will refer to SHT at [facility] for further evaluation. Logistics [...] AM EDT Office Visit Cardiology at [address] [place] [address] Errol Loya MD [facility] [place] [address] Scheduled Referrals Name Type Priority Associated Diagnoses Order Schedule Amb Referral to Structural Heart Outpatient Referral Routine Nonrheumatic aortic valve stenosis Ordered: 10/21/2023 documented as of this encounter Visit Diagnoses Diagnosis Nonrheumatic aortic valve stenosis Aortic valve disorders documented in this encounter Care Teams Decision Support Analyst Relationship Specialty Start Date End Date Vanessa Christian APRN PCP - General Family Medicine 10/21/23 documented as of this encounter
--- OUTSIDE RECORDS SUMMARY | 2024-05-13 08:12 | XMS_ITS | Encounter Summary ---
Author Organization [facility] [place] [address] Care Team Providers Care Automotive Refinish Technician Name Role Phone Victor M Lafleur MD Primary Care Provider [phone] Encounter Details Date Type Department Care Team (Late st Contact Info) Description 09/26/2023 Abstract Cardiology at [address] [address] Karen Billy, RN Nonrheumatic aortic [...] AM EDT Office Visit Cardiology at [address] [address] Neftali Ernandez MD [facility] [place] [address] documented as of this encounter Visit Diagnoses Diagnosis Nonrheumatic aortic valve stenosis Aortic valve disorders Nevus of face Benign neoplasm of skin of other and unspecified parts of face documented in this encounter Care Teams Automotive Refinish Technician Relationship Specialty Start Date End Date Victor M Lafleur MD PCP - General 10/02/13 10/20/23 documented as of this encounter
--- OUTSIDE RECORDS SUMMARY | 2024-05-13 08:12 | XMS_ITS | Encounter Summary ---
Author Organization [facility] [place] [address] Care Team Providers Care Freelance Writer Name Role Phone Vanessa Christian MAURI Primary Care Provider [phone] Encounter Details Date Type Department Care Team (Latest Contact Info) Description 01/09/2024 3:00 PM EDT Laboratory [place] [phone] Nonrheumatic aortic valve stenosis Social History Tobacco Use Types Packs/Day Years Used Date Smoking Tobacco: Former Cigarettes Smokeless Tobacco: Never Comments:Quit 15 + years ago Alcohol Use Standard Drinks/Week Comments Yes 0 (1 standard drink = 0.6 oz pur e alcohol) rare [facility] Inpatient Questions Answer Date Recorded Prevent Contact [...] 11:00 AM EDT Office Visit Cardiology at [address] [phone] Neftali Ernandez MD [facility] [place] [address] documented as of this encounter Procedures Procedure Name Priority Date/Time Associated Diagnosis Comments ABORH RECHECK STATUS Routine 01/09/2024 2:58 PM EDT HEMOGRAM Routine 01/09/2024 2:58 PM EDT Nonrheumatic aortic valve stenosis DIFFERENTIAL, AUTOMATED Routine 01/09/2024 2:58 PM EDT Nonrheumatic aortic valve stenosis TYPE AND SCREEN, SDP (FUTURE SURGERY, [facility] SAME DAY PROGRAM ONLY) Routine 01/09/2024 2:58 [...] PM EDT) ABORH Recheck Order Order Placed [facility] ABORH Type Recheck Completed [facility] Blood 01/09/2024 2:58 PM EDT 01/09/2024 3:08 PM EDT Narrative Resulting Agency Comment Spec In Lab Zak Farmer MD BLOOD BANK LAB CECILIO ALEMAN [facility] [place] [address] * Differential, Automated (01/09/2024 2:58 PM EDT) Neutrophil % 70.5 % [facility] Neutrophil Absolute 4.34 1.70 - 6.10 x10(3)/[facility] Lymph % 18.9 % [facility] Lymphocytes Abs 1.2 0.9 - 3.2 x10(3)/[facility] Monocyte % 8.0 % [facility] Monocyte Abs 0.5 0.3 - 0.9 x10(3)/[facility] Eos % 1.6 % [facility] Eosinophils Abs 0.1 0.0 - 0.4 x10(3)/[facility] Basophil % 0.5 % [facility] Baso Absolute 0.0 0.0 - 0.1 x10(3)/[facility] Immature Gran % 0.50 % [facility] Comment: Immature granulocytes(IG's)percentage and absolute count will include metamyelocytes, myelocytes, and promyelocytes. Blood smears from CBCs yielding IG's will be scanned manually for concordance. If this scan disagrees with the automated IG or if promyelocytes are noted, a manual differential will be performed. Immature Gran Absolute 0.03 0.00 - 0.04 x10(3)/[facility] Blood 01/09/2024 2:58 PM EDT 01/09/2024 3:03 PM EDT Narrative Resulting Agency Comment Spec In Lab Zak Farmer MD HEMATOLOGY ORDERABL ES [facility] [place] [address] * Hemogram (01/09/2024 2:58 PM EDT) White Blood Cell 6.2 4.0 - 9.5 x10(3)/[facility] Red Blood Cell 5.53 4.58 - 5.54 x10(6)/[facility] Hemoglobin 16.1 13.7 - 16.5 g/dL [facility] Hematocrit 46.9 40.5 - 48.5 % [facility] Mean Cell Volume 84.8 82.9 - 93.1 fL [facility] Mean Cell Hemoglobin 29.1 27.5 - 32.1 pg [facility] Mean Cell Hemoglobin Concentration 34.3 32.0 - 35.7 g/dL [facility] Platelet 187 145 - 357 x10(3)/[facility] RDW Standard Deviation 39.2 36.0 - 45.0 fL [facility] RDW coefficient of variation 12.6 11.4 - 13.8 % [facility] Mean Platelet Volume 9.5 7.6 - 12.9 fL [facility] NRBC% auto 0.0 % [facility] NRBC Absolute 0.000 0.000 - 0.000 x10(3)/[facility] Blood 01/09/2024 2:58 PM EDT 01/09/2024 3:03 PM EDT Narrative Resulting Agency Comment Spec In Lab Zak Farmer MD HEMATOLOGY ORDERABL ES [facility] [place] [address] * Basic Metabolic Panel (non-fasting) (01/09/2024 2:58 PM EDT) Glucose 102 65 - 199 mg/dL [facility] Comment:Diabetes: >=200 mg/d L plus symptoms Blood Urea Nitrogen 15 10 - 20 mg/dL [facility] Creatinine 0.94 0.80 - 1.50 mg/dL [facility] Sodium 137 135 - 145 mmol/L [facility] Potassium 4.5 3.5 - 5.0 mmol/L [facility] Comment: Please note: ??Patients with WBC >100,000 may have falsely elevated Potassium levels. ??For accurate Potassium quantification in these patients send serum separator tube (gold top) for subsequent determinations. ??Contact the Clinical Chemistry Laboratory if there are any questions. Chloride 103 98 - 107 mmol/L [facility] Carbon Dioxide 27 22 - 31 mmol/L [facility] Anion Gap 7 5 - 15 mmol/L [facility] Calcium 9.5 8.5 - 10.5 mg/dL [facility] Est Glomerular Filtration Rate 91 >=60 mL/min/1. 73 m?? [facility] Comment: This patient's estimated [...] Lab Zak Farmer MD CHEMISTRY ORDERABLE S [facility] [place] [address] * Hepatic Function Panel (01/09/2024 2:58 PM EDT) Protein, Total 6.7 6.1 - 8.0 g/dL [facility] Albumin 4.5 3.2 - 5.2 g/dL [facility] Aspartate Aminotransferase 21 0 - 39 unit/L [facility] Alanine Aminotransferase 21 0 - 55 unit/L [facility] Alkaline Phosphatase 81 40 - 130 unit/L [facility] Bilirubin, Total 0.7 0.2 - 1.3 mg/dL [facility] Bilirubin, Direct 0.2 0.0 - 0.3 mg/dL [facility] Blood 01/09/2024 2:58 PM EDT 01/09/2024 3:03 PM EDT Narrative Resulting Agency Comment Spec In Lab Zak Farmer MD CHEMISTRY ORDERABLE S Performing Organization Address [facility] Co de Phone Number [facility] [place] [address] * Prothrombin Time (01/09/2024 2:58 PM EDT) Prothrombin Time 10.6 9.4 - 12.5 sec [facility] International Normalization Ratio 0.9 [facility] [...] HEMATOLOGY ORDERABL ES Performing Organization Address [facility] Co de Phone Number [facility] [place] [address] * Type and Screen Future Surgery, [facility] SAME DAY PROGRAM ONLY) (01/09/2024 2:58 PM EDT) Pathologist [facility] ABORH Type O NEGATIVE [facility] Patient BB History Not Found [facility] Expires at [id number] on: 02-20-2024 [facility] Ab Screen Interp Negative [facility] Blood 01/09/2024 2:58 PM EDT 01/09/2024 2:58 PM EDT Narrative Resulting Agency Comment Spec In Lab Zak Farmer MD BLOOD BANK LAB ORDE RABLES Performing Organization Address City/[facility]/ZIP Co de Phone Number [facility] [place] [address] documented in this encounter Visit Diagnoses Diagnosis Nonrheumatic aortic valve stenosis Aortic valve disorders documented in this encounter Care Teams Freelance Writer Relationship Specialty Start Date End Date Vanessa Christian APRN PCP - General Family Medicine 10/21/23 documented as of this encounter
--- OUTSIDE RECORDS SUMMARY | 2024-05-13 08:12 | XMS_ITS | Encounter Summary ---
Author Organization [facility] [place] [address] Care Team Providers Care Machine Group Leader Name Role Phone Vanessa Christian APRN Primary Care Provider [phone] Encounter Details Date Type Department Care Team (Late st Contact Info) Description 12/26/2023 Notes Only Cardiology at [address] [address] Neftali Ernandez MD [facility] [place] [address] Social History Tobacco Use Types Packs/Day Years [...] 1:37 PM EDT Echocardiogram images reviewed from [facility]. Indeed, the aortic valve appears severely stenotic. Cannotrule out bicuspid valve documented in this encounter Plan of Treatment Upcoming Encounters Date Type Department Care Team (Late st Contact Info) Description 05/27/2024 11:00 AM EDT Office Visit Cardiology at [address] [address] Neftali Ernandez MD [facility] [place] [address] documented as of this encounter Visit Diagnoses Not on filedocumented in this encounter Care Teams Machine Group Leader Relationship Specialty Start Date End Date Vanessa Christian APRN PCP - General Family Medicine 10/21/23 documented as of this encounter
--- OUTSIDE RECORDS SUMMARY | 2024-05-13 08:12 | XMS_ITS | Encounter Summary ---
Author Organization [facility] [place] [address] Care Team Providers Care Food And Nutrition Supervisor Name Role Phone Vanessa Christian MAURI Primary Care Provider [phone] Reason for Visit * Auth/Cert (Routine) Specialty [...] W RHC (WRVU 5.9) Rima Dickinson MD [facility] [place] [address] [facility] Referral ID Status Reason Start Date Expiration Date Visits Re quested Visits Authorized [id number] 1 1 Encounter Details Date Type Department Care Team (Latest Contact Info) Description 02/03/2024 8:06 AM EDT - 02/03/2024 2:54 PM EDT Hospital Encounter [place] [address] Rima Dickinson MD [facility] [place] [address] Screening for cardiovascular condition; Aortic valve stenosis, [...] lbs Follow-up Visits Follow up with your optical goods worker in 2-4 weeks Access Site 'Black and Blue' and tenderness is expected during the first week Call if you noted a mass (lump) greater than the size of a ellis Call Office with any Questions and if you have any of the following Clarence Lane M.D Interventional Drywaller Global Safety Officer #: [phone] * Attachments The following attachments cannot be sent through Care Everywhere. * CAD (Coronary Artery Disease): General Info (Bruneian) * Coronary Angiogram: Post-op (Bruneian) documented in this encounter Medications at Time [...] Lane MD - 02/03/2024 11:48 AM EDT [facility] Interventional Cardiology Adult Pre-Procedure H&P Update: Cardiac Catheterization Karlos Anthony [id number] Chief Complaint: Aortic stenosis HPI: Mr. [...] is inthe chart Clarence Lane MD Interventional Drywaller 02/03/24 11:48 AM documented in this encounter Miscellaneous Notes * Brief Op Note - Clarence Lane MD - 02/03/2024 12:51 PM EDT Preliminary Cardiac Catheterization Procedure Note: Patient Name: Karlos Anthony : [id number] MR#: [id number] Case Date: 02/03/2024 Global Safety Officer: Surgeon(s) and Role: * Saira Lua MD [...] AM EDT Office Visit Cardiology at [address] [place] [address] Neftali Ernandez MD [facility] [place] [address] Scheduled Orders Name Type Priority Associated Diagnoses [...] Modality Other Narrative 02/12/2024 3:47 PM EDT ?[facility] ? Cardiac Catheterization/Intervention Report ? Patient Name: Karlos Anthony ? Procedure Date: 02/03/2024 ? A #: [id number] ? Primary Physician: Saira Lua ? Case #: [id number] ? File Name: [id number] ? Catheterization Order Number: [id number] ? [facility] ? Final Report [place], [place] ? Patient Name: ? Karlos Patenaude ? ID#: ?[id number] ? : ?1960 ? Procedure Date: ? [...] Procedure Note Saira Lua MD - 02/12/2024 [facility] Cardiac Catheterization/Intervention Report Patient Name: Karlos Anthony Procedure Date: 02/03/2024 A #: [id number] Primary Physician: Saira Lua Case #: [id number] File Name: [id number] Catheterization Order Number: [id number] [facility] FinalReport [place], [place] Patient Name: Karlos Anthony ID#:[id number] :1960 Procedure Date: February 03, 2024 Case [...] was designated as ASA Class III. The [facility] clinical frailty scale is 3: [...] (Bezet) 372 ms MUSE SYSTEM Calculated P [place] 59 degrees MUSE SYSTEM Calculated R [place] 34 degrees MUSE SYSTEM Calculated T [place] 63 degrees MUSE SYSTEM INTERPRETATION Sinus bradycardia [...] MD) documented in this encounter Care Teams Food And Nutrition Supervisor Relationship Specialty Start Date End Date Vanessa Christian APRN PCP - General Family Medicine 10/21/23 documented as of this encounter
--- OUTSIDE RECORDS SUMMARY | 2024-05-13 08:12 | XMS_ITS | Encounter Summary ---
[place] [address] Care Team Providers Care Chefs Name Role Phone Vanessa Christian Lane DOTSON Primary Care Provider [phone] Reason for Referral * Diagnostic Test (Routine) - Closed Specialty Diagnoses / Procedures Referred By Contac t Referred To Contact Radiology Diagnoses Nonrheumatic aortic valve stenosis Procedures CT Chest wo Contrast (Generic) Louisa Cho PA [facility] [place] [address] [facility] [place] [address] Referral ID Status Reason Start Date Expiration Date V isits Requested Visits Authorized [id number] Closed Specialty Service Requested 01/10/2024 07/11/2025 1 1 Reason for Visit * Diagnostic Test (Routine) - Closed Specialty Diagnoses / Procedures Referred By Contac t Referred To Contact Radiology Diagnoses Nonrheumatic aortic valve stenosis Procedures CT Chest wo Contrast (Generic) Louisa Cho PA [facility] [place] [address] [facility] [place] [address] Referral ID Status Reason Start Date Expiration Date V isits Requested Visits Authorized [id number] Closed Specialty Service Requested 01/10/2024 07/11/2025 1 1 Encounter Details Date Type Department Care Team (Latest Contact Info) Description 02/03/2024 7:36 AM EDT - 02/03/2024 8:05 AM EDT Hospital Encounter CT Scan at [facility] [place] [address] Zak Farmer MD [facility] [place] [address] Nonrheumatic aortic valve stenosis Discharge Disposition: Home Social History Tobacco Use Types Packs/Day Years Used Date Smoking Tobacco: Former Cigarettes Smokeless Tobacco: Never Comments:Quit 15 + years ago Alcohol Use Standard Drinks/Week Comments Yes 0 (1 standard drink = 0.6 oz pur e alcohol) rare [facility] Inpatient Questions Answer Date Recorded Does Anyone [...] 11:00 AM EDT Office Visit Cardiology at [address] [place] [address] Neftali Ernandez MD [facility] [place] [address] documented as of this encounter Procedures Procedure Name Priority Date/Time Associated Diagnosis Comments CT CHEST WO CONTRAST (GENERIC) Routine 02/03/2024 7:44 AM EDT Nonrheumatic aortic valve stenosis documented in this encounter Results * CT Chest wo Contrast (Generic) (02/03/2024 7:44 AM EDT) [employer] WORKSTATION ID [id number] RAD Anatomical Region Laterality Modality Chest Computed [...] who have questions please contact the health career placement services counselor that requested your imaging first. ? Electronically signed by: Rogerio Wright MD, [facility] ([phone]), at 02/03/2024 10:00 AM Narrative 02/03/2024 10:00 [...] nodule along the minor fissure (series 302 [id number]) and a 8 mm right lower lobe [...] patients who have questions please contactthe health career placement services counselor that requested your imaging first. Electronically signed by: Rogerio Wright MD, [facility]([phone]), at 02/03/2024 10:00 AM Zak Farmer MD IMG CT ORDERABLES documented in this encounter Visit Diagnoses Diagnosis Nonrheumatic aortic valve stenosis Aortic valve disorders documented in this encounter Care Teams Chefs Relationship Specialty Start Date End Date Vanessa Christian APRN PCP - General Family Medicine 10/21/23 documented as of this encounter
--- OUTSIDE RECORDS SUMMARY | 2024-05-13 08:12 | XMS_ITS | Encounter Summary ---
Author Organization [facility] [place] [address] Care Team Providers Care Revenue Accountant Name Role Phone Vanessa Christian MAURI Primary Care Provider [phone] Reason for Visit * Auth/Cert (Routine) Specialty [...] W RHC (WRVU 5.9) Rima Dickinson MD [facility] [place] [address] [facility] Referral ID Status Reason Start Date Expiration Date Visits Re quested Visits Authorized [id number] 1 1 Encounter Details Date Type Department Care Team (Late st Contact Info) Description 02/03/2024 10:00 AM EDT - 02/03/2024 11:00 AM [place] [address] Saira Lua MD [facility] [place] [address] CARDIAC CATHETERIZATION Social History Tobacco Use Types [...] encounter Discharge Instructions * Patient Instructions* Clarence Laen MD - 02/03/2024 12:50 PM EDT Restrictions (first 48 Hours) NO Driving Do not lift objects >20 Lbs Restrictions (First 5 days) Do not lift objects >40 lbs Follow-up Visits Follow up with your housing property manager in 2-4 weeks Access Site 'Black and Blue' and tenderness is expected during the first week Call if you noted a mass (lump) greater than the size of a ellis Call Office with any Questions and if you have any of the following Clarence Lane M.D Interventional [employer] Former Automatic Barkeeper #: [phone] * Attachments The following attachments cannot be sent through Care Everywhere. * CAD (Coronary Artery Disease): General Info (Swedish) * Coronary Angiogram: Post-op (Swedish) documented in this encounter Medications at Time [...] Lane MD - 02/03/2024 11:48 AM EDT [facility] Interventional Cardiology Adult Pre-Procedure H&P Update: Cardiac Catheterization Karlos Anthony [id number] 1960 Chief Complaint: Aortic stenosis HPI: Mr. [...] is inthe chart Clarence Lane MD Interventional [employer] 02/03/24 11:48 AM documented in this encounter Miscellaneous Notes * Brief Op Note - Clarence Lane MD - 02/03/2024 12:51 PM EDT Preliminary Cardiac Catheterization Procedure Note: Patient Name: Karlos Anthony : [id number] MR#: [id number] Case Date: 02/03/2024 Barkeeper: Surgeon(s) and Role: * Saira Lua MD [...] 11:00 AM EDT Office Visit Cardiology at [address] [phone] Neftali Ernandez MD [facility] [place] [address] Scheduled Orders Name Type Priority Associated Diagnoses [...] Modality Other Narrative 02/12/2024 3:47 PM EDT ?[facility] ? Cardiac Catheterization/Intervention Report ? Patient Name: Patenaude, Karlos ? Procedure Date: 02/03/2024 ? A #: [id number] ? Primary Physician: Saira Lua ? Case #: [id number] ? File Name: [id number] ? Catheterization Order Number: [id number] ? [facility] ? Final Report [place], [place] ? Patient Name: ? Karlos Patenaude ? ID#: ?[id number] ? : ?1960 ? Procedure Date: ? February 03, 2024 ? Case #: ? [id number] ? Room: ? 5 ? Case Physician: [...] Procedure Note Saira Lua MD - 02/12/2024 [facility] Cardiac Catheterization/Intervention Report Patient Name: Karlos Anthony Procedure Date: 02/03/2024 A #: [id number] Primary Physician: Saira Lua Case #: [id number] File Name: [id number] Catheterization Order Number: [id number] [facility] FinalReport [place], [place] Patient Name: Karlos Anthony ID#:[id number] :1960 Procedure Date: February 03, 2024 Case [...] was designated as ASA Class III. The [facility] clinical frailty scale is 3: Managing Well. [...] (Bezet) 372 ms MUSE SYSTEM Calculated P Freeman 59 degrees MUSE SYSTEM Calculated R Freeman 34 degrees MUSE SYSTEM Calculated T Freeman 63 degrees MUSE SYSTEM INTERPRETATION Sinus bradycardia [...] MD) documented in this encounter Care Teams Revenue Accountant Relationship Specialty Start Date End Date Vanessa Christian, MAURI PCP - General Family Medicine 10/21/23 documented as of this encounter
--- OUTSIDE RECORDS SUMMARY | 2024-05-13 08:12 | XMS_ITS | Encounter Summary ---
Author Organization [place] [address] Care Team Providers Care Boat Outfitting Supervisor Name Role Phone Vanessa Christian Lane DOTSON Primary Care Provider [phone] Encounter Details Date Type Department Care Team (Late st Contact Info) Description 01/09/2024 2:30 PM EDT Clinical Support Same Day at [facility] [place] [phone] Social History Tobacco Use Types Packs/Day Years Used Date Smoking Tobacco: Former Cigarettes Smokeless Tobacco: Never Comments:Quit 15 + years ago Alcohol Use Standard Drinks/Week Comments Yes 0 (1 standard drink = 0.6 oz pur e alcohol) rare [facility] Inpatient Questions Answer Date Recorded [...] you tube link for a video about [facility] cardiac surgery. Instructed to [...] type and screen performed while in the [facility]. Sent to Radiology for chest x-ray. Special medication instructions: None Procedure date: not booked. Darian documented in this encounter Plan of Treatment Upcoming Encounters Date Type Department Care Team (Late st Contact Info) Description 05/27/2024 11:00 AM EDT Office Visit Cardiology at [address] [place] [phone] Neftali Ernandez MD [facility] [place] [address] documented as of this encounter Visit Diagnoses Not on filedocumented in this encounter Care Teams Boat Outfitting Supervisor Relationship Specialty Start Date End Date Vanessa Christian APRN PCP - General Family Medicine 10/21/23 documented as of this encounter
--- OUTSIDE RECORDS SUMMARY | 2024-05-13 08:12 | XMS_ITS | Encounter Summary ---
Author Organization [facility] [place] [address] Care Team Providers Care Game Author Name Role Phone Vanessa Christian APRN Primary Care Provider [phone] Encounter Details Date Type Department Care Team (Late st Contact Info) Description 10/21/2023 Abstract Cardiology at [address] [phone] Adam Mayes RN Social History Tobacco Use [...] AM EDT Office Visit Cardiology at [address] [place] [address] Neftali Ernandez MD [facility] [place] [address] documented as of this encounter Visit Diagnoses Not on filedocumented in this encounter Care Teams Game Author Relationship Specialty Start Date End Date Vanessa Christian APRN PCP - General Family Medicine 10/21/23 documented as of this encounter
--- OUTSIDE RECORDS SUMMARY | 2024-05-13 08:12 | XMS_ITS | Encounter Summary ---
Author Organization [facility] [place] [address] Care Team Providers Care Customs Broker Name Role Phone Vanessa Christian APRN Primary Care Provider [phone] Encounter Details Date Type Department Care Team [...] AM EDT Office Visit Cardiology at [address] [place] [phone] Neftali Ernandez MD [facility] [place] [address] documented as of this encounter Visit Diagnoses Not on filedocumented in this encounter Care Teams Customs Broker Relationship Specialty Start Date End Date Vanessa Christian APRN PCP - General Family Medicine 10/21/23 documented as of this encounter
--- OUTSIDE RECORDS SUMMARY | 2024-05-13 08:12 | XMS_ITS | Encounter Summary ---
Author Organization [facility] Address [facility] [place] [address] Care Team Providers Care Admissions Clinician Name Role Phone Vanessa Christian MAURI Primary Care Provider [phone] Reason for Referral * Diagnostic Test (Routine) - Closed Specialty Diagnoses / Procedures Referred By Contac t Referred To Contact Radiology Diagnoses Nonrheumatic aortic valve stenosis Procedures CT Chest wo Contrast (Generic) Louisa Reid PA [facility] [place] [address] [facility] [place] [address] Referral ID Status Reason Start Date Expiration Date V isits Requested Visits Authorized [id number] Closed Specialty Service Requested 01/10/2024 07/11/2025 1 1 Encounter Details Date Type Department Care Team (Late st Contact Info) Description 01/09/2024 Orders [place] [address] Zka Farmer MD [facility] [place] [address] Nonrheumatic aortic valve stenosis Social History Tobacco [...] AM EDT Office Visit Cardiology at [address] [place] [address] Neftali Ernandez MD [facility] [place] [address] documented as of this encounter Results * CT Chest wo Contrast (Generic) (02/03/2024 7:44 AM EDT) [employer] WORKSTATION ID [id number] RAD Anatomical Region Laterality Modality Chest Computed [...] disorders documented in this encounter Care Teams Admissions Clinician Relationship Specialty Start Date End Date Vanessa Christian APRN PCP - General Family Medicine 10/21/23 documented as of this encounter
--- OUTSIDE RECORDS SUMMARY | 2024-05-13 08:12 | XMS_ITS | Encounter Summary ---
Author Organization [facility] [place] [address] Care Team Providers Care Tobacco Warehouse Agent Name Role Phone Vanessa Christian APRN Primary Care Provider [phone] Encounter Details Date Type Department Care Team [...] 11:00 AM EDT Office Visit Cardiology at [address] [place] [address] Neftali Ernandez MD [facility] [place] [address] documented as of this encounter Visit Diagnoses Not on filedocumented in this encounter Care Teams Tobacco Warehouse Agent Relationship Specialty Start Date End Date Vanessa Christian APRN PCP - General Family Medicine 10/21/23 documented as of this encounter
--- OUTSIDE RECORDS SUMMARY | 2024-05-13 08:12 | XMS_ITS | Encounter Summary ---
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 ( defers to Card Surg d/t age) Neftali Ernandez MD [facility] [place] [address] Zak Farmer MD [facility] C[place]IOTHORACIC [place] [address] Referral ID Status Reason Start Date Expiration Date V isits Requested Visits Authorized [id number] Closed Consult, Test & Treat 10/21/2023 10/20/2024 1 1 Encounter Details Date Type Department Care Team (Late st Contact Info) Description 01/09/2024 1:40 PM EDT Office [place] [address] Zak Farmer MD [facility] CARDIOTHORACIC [place] [address] Nonrheumatic aortic valve stenosis Social [...] office. Best personal regards, Zak Farmer MD [phone] In aggregate 55 minutes were spent evaluating [...] AM EDT Office Visit Cardiology at [address] [place] [address] Neftali Ernandez MD [facility] [address] documented as of this encounter Results * [...] have questions please contact the health career technical education teacher that requested your imaging first. ? [...] who have questions please contactthe health career technical education teacher that requested your imaging first. Zak Farmer MD IMG DX ORDERABLES * Basic Metabolic Panel (non-fasting) (01/09/2024 2:58 PM EDT) Glucose 102 65 - 199 mg/dL [facility] Comment:Diabetes: >=200 mg/d L plus symptoms Blood Urea Nitrogen 15 10 - 20 mg/dL [facility] [...] 107 mmol/L [facility] Carbon Dioxide 27 22 - 31 mmol/L [facility] Anion Gap 7 5 - 15 mmol/L [facility] Calcium 9.5 8.5 - 10.5 mg/dL [facility] Est Glomerular Filtration Rate 91 >=60 mL/min/1. 73 m?? [facility] [...] Lab Zak Farmer MD CHEMISTRY ORDERABLE S [facility] [place] [address] * Hepatic Function Panel (01/09/2024 2:58 PM EDT) Pathologist [facility] Protein, Total 6.7 6.1 - 8.0 g/dL [facility] Albumin 4.5 3.2 - 5.2 g/dL [facility] Aspartate Aminotransferase 21 0 - 39 unit/L [facility] Alanine Aminotransferase 21 0 - 55 unit/L [facility] Alkaline Phosphatase 81 40 - 130 unit/L [facility] Bilirubin, Total 0.7 0.2 - 1.3 mg/dL [facility] Bilirubin, Direct 0.2 0.0 - 0.3 mg/dL [facility] Blood 01/09/2024 2:58 PM EDT 01/09/2024 3:03 PM EDT Narrative Resulting Agency Comment Spec In Lab Zak Farmer MD CHEMISTRY ORDERABLE S Performing Organization Address [facility] Co de Phone Number [facility] [place] [address] * Prothrombin Time (01/09/2024 2:58 PM EDT) [facility] Prothrombin Time 10.6 9.4 - 12.5 sec [facility] International Normalization Ratio 0.9 [facility] Comment: An INR [...] [facility]/ZIP Co de Phone Number [facility] [place] [address] * Type and Screen Future Surgery, [facility] SAME DAY PROGRAM ONLY) (01/09/2024 2:58 PM EDT) ABORH Type O NEGATIVE [facility] Patient BB History Not Found [facility] Expires at 2359 on: 02-20-2024 [facility] Ab Screen Interp Negative [facility] Blood 01/09/2024 2:58 PM EDT 01/09/2024 2:58 PM EDT Narrative Resulting Agency Comment Spec In Lab Zak Farmer MD BLOOD BANK LAB [facility] Organization Address City/State/ZIP Co de Phone Number [facility] [place] [address] documented in this encounter Visit Diagnoses Diagnosis Nonrheumatic aortic valve stenosis Aortic valve disorders Nonrheumatic aortic valve stenosis Aortic valve disorders documented in this encounter Care Teams Machine Skiver Relationship Specialty Start Date End Date Vanessa Christian APRN PCP - General Family Medicine 10/21/23 documented as of this encounter
--- OUTSIDE RECORDS SUMMARY | 2024-05-13 08:12 | XMS_ITS | Encounter Summary ---
Author Organization [facility] [place] [address] Care Team Providers Care Mc Kay Machine Operator Name Role Phone Vanessa Christian MUARI Primary Care Provider [phone] Encounter Details Date Type Department Care Team (Late st Contact Info) Description 01/10/2024 Orders Only [place] [address] Lawson Napoles PA [facility] [place] [address] Screening for cardiovascular condition; Aortic valve stenosis, [...] 11:00 AM EDT Office Visit Cardiology at [address] [place] [address] Neftali Ernandez MD [facility] CARDIOLOGY [facility] [place] [address] documented as of this encounter Visit Diagnoses Diagnosis Screening for cardiovascular condition Screening for other and unspecified cardiovascular conditions Aortic valve stenosis, etiology of cardiac valve disease unspecified documented in this encounter Care Teams Mc Kay Machine Operator Relationship Specialty Start Date End Date Vanessa Christian APRN PCP - General Family Medicine 10/21/23 documented as of this encounter
--- OUTSIDE RECORDS SUMMARY | 2024-05-13 08:12 | XMS_ITS | Encounter Summary ---
[place] [address] Care Team Providers Care Criminal Intelligence Analyst Name Role Phone Victor M Lafleur MD Primary Care Provider [phone] Reason for Visit * Reason Onset Date Comments Referral 09/20/2023 Encounter Details Date Type Department Care Team (Late st Contact Info) Description 09/20/2023 Telephone Cardiology at [address] [address] Karen Billy, cook fish eggs Social History Tobacco Use Types Packs/Day Years [...] AM EDT Office Visit Cardiology at [address] [place] [address] Neftali Ernandez MD [facility] [place] [address] documented as of this encounter Visit Diagnoses Not on filedocumented in this encounter Care Teams Criminal Intelligence Analyst Relationship Specialty Start Date End Date Victor M Lafleur MD PCP - General 10/02/13 10/20/23 documented as of this encounter
--- OUTSIDE RECORDS SUMMARY | 2024-05-13 08:12 | XMS_ITS | Encounter Summary ---
Author Organization [facility] [place] [address] Care Team Providers Care Banquet Prep Cook Name Role Phone Vanessa Christian APRN Primary Care Provider [phone] Encounter Details Date Type Department Care Team (Late st Contact Info) Description 10/21/2023 Abstract Cardiology at [address] [phone] Adam Mayes RN Social History Tobacco Use [...] AM EDT Office Visit Cardiology at [address] [phone] Neftali Ernandez MD [facility] [place] [address] documented as of this encounter Visit Diagnoses Not on filedocumented in this encounter Care Teams Banquet Prep Cook Relationship Specialty Start Date End Date Vanessa Christian APRN PCP - General Family Medicine 10/21/23 documented as of this encounter
--- OUTSIDE RECORDS SUMMARY | 2024-05-15 07:57 | XMS_ITS | Clinical Summary ---
Author Organization [facility] Address [address] [place] [address] Care Team Providers Care Trail Maintenance Worker Name Role Phone Vanessa Christian NP Primary Care Provider [phone] Social History Tobacco Use Types Packs/Day Years [...] COVID-19 Vaccine (2022-24 season) [address] Maintenance Worker Relationship Specialty Start Date End Date Vanessa Christian NP [address] [place] [address] PCP - General Family Medicine - Primary Care 10/07/23
--- OUTSIDE RECORDS SUMMARY | 2024-05-15 07:57 | XMS_ITS | Encounter Summary ---
Author Organization [facility] Address [facility] [place] [address] Care Team Providers Care V Belt Skiver Name Role Phone Gino Vanessa Lane DOTSON Primary Care Provider Encounter Details Date Type Department Care Team (Late st Contact Info) Description 02/24/2024 Orders Only Cardiac Surgery [facility] [place] [phone] Trudi Lester APRN [facility] [place] [address] Social History Tobacco Use Types Packs/Day Years Used Date Smoking Tobacco: Former Cigarettes Smokeless Tobacco: Never Comments:Quit 15 + years ago Alcohol Use Standard Drinks/Week Comments Yes 0 (1 standard drink = 0.6 oz pur e alcohol) rare [facility] Utilities Answer Date Recorded In the past 12 months has e [employer], gas, oil, or water [employer] threatened to shut off services in your [...] 11:00 AM EDT Office Visit Cardiology at [address] [place] [address] Neftali Ernandez MD [facility] [place] [address] documented as of this encounter Visit Diagnoses Not on filedocumented in this encounter Care Teams V Belt Skiver Relationship Specialty Start Date End Date Vanessa Christian APRN PCP - General Family Medicine 10/21/23 documented as of this encounter
--- OUTSIDE RECORDS SUMMARY | 2024-05-15 07:57 | XMS_ITS | Encounter Summary ---
Author Organization [facility] Address [facility] [place] [address] Care Team Providers Care Medical Records Manager Name Role Phone Vanessa Christian MAURI Primary Care Provider [phone] Encounter Details Date Type Department Care Team (Latest Contact Info) Description 03/12/2024 Travel Social History Tobacco Use Types Packs/Day Years Used Date Smoking Tobacco: Former Cigarettes Smokeless Tobacco: Never Comments:Quit 15 + years ago Alcohol Use Standard Drinks/Week Comments Yes 0 (1 standard drink = 0.6 oz pur e alcohol) rare [facility] Utilities Answer Date Recorded In the [...] AM EDT Office Visit Cardiology at [address] [place] [id number] Neftali Ernandez MD [facility] [place] [address] documented as of this encounter Visit Diagnoses Not on filedocumented in this encounter Care Teams Medical Records Manager Relationship Specialty Start Date End Date Vanessa Christian APRN PCP - General Family Medicine 10/21/23 documented as of this encounter
--- OUTSIDE RECORDS SUMMARY | 2024-05-15 07:57 | XMS_ITS | Encounter Summary ---
Author Organization [facility] Address [facility] [place] [address] Care Team Providers Care Refractory Manager Name Role Phone Vanessa Christian MAURI Primary Care Provider [phone] Encounter Details Date Type Department Care Team (Late st Contact Info) Description 03/12/2024 2:40 PM EDT Office Visit [place] [phone] Zak Farmer MD [facility] [place] [address] Coronary artery disease, unspecified vessel or lesion type, unspecified whether angina present, unspecified whether [place] or transplanted heart Social History Tobacco Use Types Packs/Day Years Used Date Smoking Tobacco: Former Cigarettes Smokeless Tobacco: Never Comments:Quit 15 + years ago Alcohol Use Standard Drinks/Week Comments Yes 0 (1 standard drink = 0.6 oz pur e alcohol) rare [facility] Utilities Answer Date Recorded In the past 12 months has e [employer], gas, oil, or water [employer] threatened to shut off services in your [...] place to sleep or slept in a long term (including now)? No 02/18/2024 DH IPV Inpatient [...] 2:40 PM EDT To: MD Vanessa Coles, COMMUNICATION PROFESSOR Re; Karlos Santa ( 1960) We had [...] office. Best personal regards, Zak Farmer MD [phone] documented in this encounter Plan of Treatment Upcoming Encounters Date Type Department Care Team (Late st Contact Info) Description 05/27/2024 11:00 AM EDT Office Visit Cardiology at [address] [place] [address] Neftali Ernandez MD [facility] [place] [address] documented as of this encounter Procedures Procedure Name Priority Date/Time Associated Diagnosis Comments EKG 12-LEAD Routine 03/12/2024 2:35 PM EDT Coronary artery disease, unspecified vessel or lesion type, unspecified whether angina present, unspecified whether [place] or transplanted heart documented in this encounter Results * EKG 12 Lead (03/12/2024 2:35 PM EDT) Ventricular rate 59 BPM MUSE SYSTEM Atrial Rate 59 BPM MUSE SYSTEM P-R Interval 190 ms MUSE SYSTEM QRS Duration 92 ms MUSE SYSTEM Q-T Interval 406 ms MUSE SYSTEM QTC Calculated (Bezet) 401 ms MUSE SYSTEM Calculated P L[place] -12 degrees MUSE SYSTEM Calculated R [place] 24 degrees MUSE SYSTEM Calculated T [place] 74 degrees MUSE SYSTEM INTERPRETATION Sinus bradycardia T wave abnormality, consider anterior ischemia Abnormal ECG When compared with ECG of 17-FEB-2024 13:24, MO interval has decreased T wave inversion now evident in Anterior leads Confirmed by Paul Guzman ([id number]) on 03/15/2024 8:36:23 AM MUSE SYSTEM 03/12/2024 2:35 PM EDT 03/15/2024 8:36 AM EDT Zak Farmer MD ECG ORDERABLES MUSE SYSTEM documented in this encounter Visit Diagnoses Diagnosis Coronary artery disease, unspecified vessel or lesion type, unspecified whether angina present, unspecified whether [place] or transplanted heart documented in this encounter Care Teams Refractory Manager Relationship Specialty Start Date End Date Vanessa Christian, MAURI PCP - General Family Medicine 10/21/23 documented as of this encounter
--- OUTSIDE RECORDS SUMMARY | 2024-05-15 07:57 | XMS_ITS | Encounter Summary ---
Author Organization [facility] Address [facility] [place] [address] Care Team Providers Care Food Science Technician Name Role Phone Vanessa Christian MAURI Primary Care Provider [phone] Encounter Details Date Type Department Care Team (Latest Contact Info) Description 03/12/2024 1:30 PM EDT - 03/12/2024 11:59 PM EDT Hospital Encounter XRay at [address] [place] [address] Coronary artery disease, unspecified vessel or lesion type, unspecified whether angina present, unspecified whether [place] or transplanted heart Discharge Disposition: Home Social History Tobacco Use Types Packs/Day Years Used Date Smoking Tobacco: Former Cigarettes Smokeless Tobacco: Never Comments:Quit 15 + years ago Alcohol Use Standard Drinks/Week Comments Yes 0 (1 standard drink = 0.6 oz pur e alcohol) rare [facility] Utilities Answer Date Recorded In the past 12 months has e [employer], gas, oil, or water [employer] threatened to shut off services in your [...] Sig Dispensed Refills Start Date End Date lisinopriL (Zestril) 10 mg tablet Take 1 [...] mouth 2 times daily. 3 tablet 02/24/2024 dorzolamide (Trusopt) 2 % Drops 3 times [...] Place 1 drop into both eyes daily. documented as of this encounter Plan of Treatment Upcoming Encounters Date Type Department Care Team (Late st Contact Info) Description 05/27/2024 11:00 AM EDT Office Visit Cardiology at [address] [place] [address] Neftali Ernandez MD [facility] [place] [address] documented as of this encounter Procedures Procedure Name Priority Date/Time Associated Diagnosis Comments XR CHEST PA AND LATERAL Routine 03/12/2024 1:42 PM EDT Coronary artery disease, unspecified vessel or lesion type, unspecified whether angina present, unspecified whether [place] or transplanted heart documented in this encounter Results * XR Chest PA & Lateral (Generic) (03/12/2024 1:42 PM EDT) WORKSTATION ID [id number] RAD Anatomical Region Laterality Modality Chest N/A [...] who have questions please contact the health insurance healthcare consultant that requested your imaging first. ? 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 Zak Farmer MD IMG DX ORDERABLES documented in this encounter Visit Diagnoses Diagnosis Coronary artery disease, unspecified vessel or lesion type, unspecified whether angina present, unspecified whether [place] or transplanted heart documented in this encounter Care Teams Food Science Technician Relationship Specialty Start Date End Date Vanessa Christian APRN PCP - General Family Medicine 10/21/23 documented as of this encounter
--- OUTSIDE RECORDS SUMMARY | 2024-05-15 07:57 | XMS_ITS | Referral Summary ---
Author Organization [facility] Address [address] [place] [address] Care Team Providers Care Risk Control Officer Name Role Phone Filidayna Vanessa Sherman NP Primary Care Provider [phone] Social History Tobacco Use Types Packs/Day Years Used Date Smoking Tobacco: Never Assessed Sex and Gender Information Value Date Recorded Sex Assigned at Not on file Gender Identity Not on file Sexual Orientation Not on file Plan of Treatment Not on file Care Teams Risk Control Officer Relationship Specialty Start Date End Date Vanessa Christian NP [address] [place] [address] PCP - General Family Medicine - Primary Care 10/07/23
--- OUTSIDE RECORDS SUMMARY | 2024-05-15 07:57 | XMS_ITS | Clinical Summary ---
Author Organization [facility] Address [facility] [place] [address] Care Team Providers Care Appeals Coordinator Name Role Phone Gino Aparna Lane DOTSON Primary Care Provider [phone] Allergies No known active allergies Medications Medication [...] Nevus of face 09/26/2023 Overview (09/26/2023): Right rastafari Aortic stenosis 08/14/2023 Overview (10/21/2023): 12/2022 TTE ([facility]): VITA 0.8-0.9 cm2 (MG 28 mmHg, DOI [...] PM EDT Office Visit [place] [address] Zak Farmer MD Coronary artery disease, unspecified vessel or lesion type, unspecified whether angina present, unspecified whether stebbins or transplanted heart 03/12/2024 1:30 PM EDT - 03/12/2024 11:59 PM EDT Hospital Encounter XRay at [address] [place] [phone] Coronary artery disease, unspecified vessel or lesion type, unspecified whether angina present, unspecified whether stebbins or transplanted heart Discharge Disposition: Home 03/12/2024 Travel 02/24/2024 [place] [address] Trudi Lester APRN 02/17/2024 7:35 AM EDT Anesthesia [place] [address] Tara York MD 02/17/2024 7:30 AM EDT - 02/17/2024 1:26 PM EDT Surgery [place] [address] Zak Farmer MD ENDOSCOPIC HARVEST VEIN(S) FOR CABG (WRVU 0.31) 02/17/2024 5:43 AM EDT - 02/24/2024 11:23 AM EDT Hospital Encounter Heart and Vascular Unit Level 4 [place] [address] Zak Farmer MD S/P AVR (Primary Dx); Aortic valve stenosis, etiology of cardiac valve disease unspecified Discharge Disposition: Home with VNA 02/14/2024 [place] [address] Zak Farmer MD Coronary artery disease, unspecified vessel or lesion type, unspecified whether angina present, unspecified whether stebbins or transplanted heart (Primary Dx) from Last 3 Months Social History Tobacco Use Types Packs/Day Years Used Date Smoking Tobacco: Former Cigarettes Smokeless Tobacco: Never Comments:Quit 15 + years ago Alcohol Use Standard Drinks/Week Comments Yes 0 (1 standard drink = 0.6 oz pur e alcohol) rare [facility] Utilities Answer Date Recorded In the past 12 months has [employer], gas, oil, or water [employer] threatened to shut off services in your [...] 11:00 AM EDT Office Visit Cardiology at [address] [place] [address] Neftali Ernandez MD [facility] [place] [address] Health Maintenance Due Date Last Done Comments [...] series) 06/07/2024 Medical Devices Implanted Type Area Technical Sales Director Device Identifier Shelf Expiration Date Model / Serial / Lot Cable,Cut,Edg ,Blnt,Ss,3tpr ([id number]) - [id number] Implanted:Qty : 1 on 02/17/2024 by Zak Farmer MD at [facility] IMPLANTS Midline: Chest [employer] - [id number] 09/02/2028 [id number] / / [id number] Valve Coronary Aortic 23mm Tissue Trnscath Biopros Inspiris ([id number]) (Autore[employer]) - [id number] Implanted:Qty : 1 on 02/17/2024 by Zak Farmer MD at [facility] IMPLANTS Heart [employer] - TSAI LI 09/15/2027 [id number] 23MM / [id number] / Procedures Procedure Name Priority Date/Time Associated Diagnosis Comments EKG 12-LEAD Routine 03/12/2024 2:35 PM EDT Coronary artery disease, unspecified vessel or lesion type, unspecified whether angina present, unspecified whether stebbins or transplanted heart XR CHEST PA AND LATERAL Routine 03/12/20 1:42 PM EDT Coronary artery disease, unspecified vessel or lesion type, unspecified whether angina present, unspecified whether stebbins or transplanted heart SCAN DOC: TELEMETRY STRIPS [...] Aortic Valve Open W Cardiopulmonary Bypass Homogrf/Stent (47674) Yes 02/17/2024 7:28 AM EDT CAD Cabg, Artery-Vein, Two ([id number]) Yes 02/17/2024 7:28 AM EDT CAD Cabg, Arterial, Single ([id number]) Yes 02/17/2024 7:28 AM EDT CAD Endoscopy W/Video-Asst Vein [place], Cabg ([id number]) Yes 02/17/2024 7:28 AM EDT CAD POCT [...] (Bezet) 401 ms MUSE SYSTEM Calculated P [place] -12 degrees MUSE SYSTEM Calculated R [place] 24 degrees MUSE SYSTEM Calculated T [place] 74 degrees MUSE SYSTEM INTERPRETATION Sinus bradycardia T wave abnormality, consider anterior ischemia Abnormal ECG When compared with ECG of 17-FEB-2024 13:24, AK interval has decreased T wave inversion now evident in Anterior leads Confirmed by Paul Guzman ([id number]) on 03/15/2024 8:36:23 AM MUSE SYSTEM 03/12/2024 2:35 PM EDT 03/15/2024 8:36 AM EDT Zak Farmer MD ECG ORDERABLES MUSE SYSTEM * XR Chest PA & Lateral (Generic) (03/12/2024 1:42 PM EDT) Only the most recent of2 resultswithin the time period is included. Pathologist [employer] WORKSTATION ID [id number] RAD Anatomical Region Laterality Modality Chest N/A [...] have questions please contact the health career development specialist that requested your imaging first. ? Electronically signed by: Augie Sanchez MD, [facility] ([phone]), at 03/13/2024 8:28 AM Narrative 03/13/2024 8:28 AM EDT EXAMINATION: XR CHEST PA AND LATERAL (GENERIC) CLINICAL HISTORY: s/p cabg eval effusions I25.10, Atherosclerotic heart disease of stebbins coronary artery without angina pectoris TECHNIQUE: PA [...] eval effusions I25.10, Atherosclerotic heart disease of stebbins coronary artery withoutangina pectoris TECHNIQUE: PA and [...] who have questions please contactthe health career development specialist that requested your imaging first. Electronically signed by: Augie Sanchez MD, [facility]([phone]), at 03/13/2024 8:28 AM Zak Farmer MD [...] included. Potassium 4.0 3.5 - 5.0 mmol/L GRACE [...] Lab Zak Farmer MD CHEMISTRY ORDERABLE S [facility] [place] [address] * (ABNORMAL) Basic Metabolic Panel (non-fasting) (02/23/2024 4:24 AM EDT) Only the most recent of4 resultswithin the time period is included. Glucose 117 65 - 199 mg/dL GRACE [...] MD CHEMISTRY ORDERABLES [facility] [place] [address] * Lactate, whole blood, send to lab ([facility]) (02/21/2024 9:45 AM EDT) Lactate WB 2.0 0.5 - 2.2 mmol/L [facility] Blood 02/21/2024 9:45 AM EDT 02/21/2024 9:52 AM EDT Narrative Resulting Agency Comment Spec In Lab Zak Farmer MD CHEMISTRY ORDERABLE S [facility] [place] [address] * Lipase (02/21/2024 9:45 AM EDT) Lipase 56 0 - 60 unit/L [facility] Blood 02/21/2024 9:45 AM EDT 02/21/2024 9:52 AM EDT Narrative Resulting Agency Comment Spec In Lab Zak Farmer MD CHEMISTRY ORDERABLE S [facility] [place] [address] * Amylase (02/21/2024 9:45 AM EDT) Pathologist [facility] Amylase 69 28 - 100 unit/L [facility] Blood 02/21/2024 9:45 AM EDT 02/21/2024 9:52 AM EDT Narrative Resulting Agency Comment Spec In Lab Zak Farmer MD CHEMISTRY ORDERABLE S Performing Organization Address [facility]/ZIP Co de Phone Number [facility] [place] [address] * (ABNORMAL) Hepatic Function Panel (02/21/2024 9:45 [...] [facility]/ZIP Co de Phone Number [facility] [place] [address] * Scan, Peripheral Blood (02/20/2024 4:23 AM EDT) Only the most recent of2 resultswithin the time period is included. Plat estimate Decreased [facility] RBC Morphology Normal [facility] Blood 02/20/2024 4:23 AM EDT 02/20/2024 4:42 AM EDT Narrative Resulting Agency Comment Spec In Lab Minnie FRENCH HEMATOLOGY CECILIO ALEMAN [facility] [place] [address] * (ABNORMAL) Hemogram (02/20/2024 4:23 AM EDT) Only the most recent of3 resultswithin the time period is included. [facility] White Blood Cell 12.7(H) 4.0 - 9.5 x10(3)/mc L [facility] [...] Platelet 88(L) 145 - 357 x10(3)/mc L [facility] RDW Standard Deviation 43.5 36.0 - 45.0 [facility] RDW coefficient of variation 13.7 11.4 - 13.8 % [facility] Mean Platelet Volume 10.2 7.6 - 12.9 [facility] NRBC% auto 0.0 % [facility] NRBC Absolute 0.000 0.000 - 0.000 x10(3)/ L [facility] Blood 02/20/2024 4:23 AM EDT 02/20/2024 4:42 AM EDT Narrative Resulting Agency Comment Spec In Lab Minnie FRENCH HEMATOLOGY CECILIO ALEMAN [facility] [place] [address] * (ABNORMAL) Differential, Automated (02/20/2024 4:23 AM EDT) Only the most recent of2 resultswithin the time period is included. Neutrophil % 81.7 % [facility] Neutrophil Absolute 10.37(H) 1.70 - 6.10 x10(3)/mc L [facility] Lymph % 7.4 % [facility] Lymphocytes Abs 0.9 0.9 - 3.2 x10(3)/ L [facility] Monocyte % 9.7 % [facility] Monocyte Abs 1.2(H) 0.3 - 0.9 x10(3)/ L [facility] Eos % 0.1 % [facility] Eosinophils Abs 0.0 0.0 - 0.4 x10(3)/ L [facility] Basophil % 0.2 % [facility] Baso Absolute 0.0 0.0 - [...] FRENCH HEMATOLOGY CECILIO ALEMAN Performing Organization Address City/[facility]/ZIP Co de Phone Number [facility] [place] [address] * POCT Glucose (02/18/2024 8:24 AM EDT) [...] OF CARE TEST ORDERABLES Performing Organization Address City/[facility]/ZIP Co de Phone Number [facility] [place] [address] * (ABNORMAL) Troponin (02/18/2024 1:40 AM EDT) [facility] Troponin-T, High Sensitivity 342(H) <=22 ng/L [facility] Comment: This patient's troponin T concentration was determined using the Aremn 5th Generation troponin T assay. The 99th [...] can be found in the [facility] Laboratory Test Catalog Troponin - [facility] Laboratory Test Catalog Reference: Fourth [place] Definition of Myocardial Infarction. Journal of the [place] College [employer] 2018;72:6524-5529 Blood 02/18/2024 1:40 AM EDT 02/18/2024 1:56 AM EDT Narrative Resulting Agency Comment Spec In Lab Zak Farmer MD CHEMISTRY ORDERABLE S Performing Organization Address City/[facility]/ZIP Co de Phone Number [facility] [place] [address] * Hemoglobin (02/17/2024 5:42 PM EDT) Hemoglobin 13.7 13.7 - 16.5 g/dL [facility] Blood 02/17/2024 5:42 PM EDT 02/17/2024 6:10 PM EDT Narrative Resulting Agency Comment Spec In Lab Zak Farmer MD HEMATOLOGY ORDERABL ES Performing Organization Address City/[facility]/ZIP Co de Phone Number [facility] [place] [address] * (ABNORMAL) BLOOD GAS 2 ARTERIAL (02/17/2024 4:18 PM EDT) Only the most recent of9 resultswithin the time period is included. pH, Arterial 7.34(L) 7.35 - 7.45 [facility] FIO2 Art 40 % [facility] PF Ratio Art 195 [facility] Blood 02/17/2024 4:18 PM EDT 02/17/2024 4:18 PM EDT Zak Farmer MD POINT OF CARE TEST ORDERABLES [facility] [place] [address] * XR Chest One View (02/17/2024 1:44 PM EDT) Pathologist [employer] WORKSTATION ID [id number] RAD Anatomical Region Laterality Modality Chest N/A Digital Radiogra phy Impressions 02/17/2024 2:12 PM EDT 1. ??No definite pleural fluid collection or pneumothorax. 2. ??Right IJ Hermon-Kaila catheter tip terminates in a descending branch [...] have questions please contact the health career development specialist that requested your imaging first. ? Electronically signed by: Denzel Hankins MD, [facility] ??([phone]), at 02/17/2024 2:12 PM Narrative 02/17/2024 2:12 PM EDT EXAMINATION: XR CHEST ONE VIEW CLINICAL HISTORY: s/p avr/cabg eval effusions TECHNIQUE: 1 view of the chest COMPARISON: Chest x-ray 01/09/2024, chest CT 02/03/2024 FINDINGS: ET tube tip terminates 5.2 cm above the carlos. Right IJ Hermon-Kaila catheter tip terminates in a descending branch [...] 5.2 cm above the carlos. Right IJ Hermon-Ganzcatheter tip terminates in a descending branch of [...] fluid collection or pneumothorax. 2. Right IJ Hermon-Kaila catheter tip terminates in a descending branch ofthe right pulmonary artery. Suggest catheter retraction. 3. Additional support lines and tubes as above. Thank you for letting us participate in the care of this patient. If youare a health care provider and have any questions regarding this report,please contact the number below. For patients who have questions please contactthe health career development specialist that requested your imaging first. Electronically signed by: Denzel Hankins MD, [facility]([phone]), at 02/17/2024 2:12 PM Zak Farmer MD IMG DX ORDERABLES * (ABNORMAL) Coox2 (02/17/2024 1:21 PM EDT) pO2, Coox 44 mmHg [facility] Hgb Blood Gas 13.1(L) [...] OF CARE TEST ORDERABLES Performing Organization Address [facility] de Phone Number [facility] [place] [address] * APTT (02/17/2024 12:10 PM EDT) Partial [...] MD HEMATOLOGY ORDERABLE S Performing Organization Address [facility] de Phone Number [facility] [place] [address] * (ABNORMAL) Thrombin time (02/17/2024 12:10 PM [...] MD HEMATOLOGY ORDERABLE S Performing Organization Address [facility] Co de Phone Number [facility] [place] [address] * (ABNORMAL) Prothrombin Time (02/17/2024 12:10 PM [...] MD HEMATOLOGY ORDERABLE S Performing Organization Address [facility] de Phone Number [facility] [place] [address] * (ABNORMAL) Fibrinogen (02/17/2024 12:10 PM EDT) Only the most recent of2 resultswithin the time period is included. Fibrinogen 154(L) 200 - 393 mg/dL [facility] [...] MD HEMATOLOGY ORDERABLE S Performing Organization Address [facility] Co de Phone Number [facility] [place] [address] * (ABNORMAL) Hemoglobin and Hematocrit, blood (02/17/2024 11:04 AM EDT) Hemoglobin 9.6(L) 13.7 - 16.5 g/dL GRACE [...] MD HEMATOLOGY ORDERABL ES Performing Organization Address [facility] Co de Phone Number [facility] [place] [address] * (ABNORMAL) Platelet count (02/17/2024 11:04 AM EDT) Platelet 106(L) 145 - 357 x10(3)/mc L [facility] Immature Plt % 1.6 0.0 - 7.4 % [facility] Comment: Limitation of the Immature Platelet Fraction (IPF)-May be less reliable when the platelet count is less than 20x685/uL due to statistical imprecision. The IPF value [...] in a decreased state of production. References: [employer] The Clinical Value of the Immature Platelet Fraction (IPF) in Cell Recovery Document Number [id number] 03/2011 [employer] The Role of the Immature Platelet Fraction (IPF) in the Differential Diagnosis of Thrombocytopenia, Document [id number] V002/15/14 P002/17 Blood 02/17/2024 11:0 4 AM EDT 02/17/2024 11:12 AM EDT Narrative Resulting Agency Comment Spec In Lab Zak Farmer MD HEMATOLOGY ORDERABL ES [facility] [place] [address] * Surgical Pathology Report (02/17/2024 10:01 AM EDT) Final Diagnosis [id number] ? Location: [facility]; [facility]; The signing pathologist has (i) examined the relevant preparation(s) for the specimen(s) and (ii) rendered or confirmed the diagnosis(es). . ?Surgical Pathology DIAGNOSIS Aortic valve leaflets, excision: Valve leaflets with myxoid degeneration, nodular fibrosis and dystrophic calcifications. Electronically signed by: ?Livier Montoya MD Verified: ??02/24/2024 13:49 ??Pathologist Performed at: ??-[facility] Dept. of Pathology, [place] [address] Wool Shearer: Job Brewer MD, FCAP, ??CLIA Certificate: [id number] SPECIMEN(S) SUBMITTED A - Aortic Valve Leaflets, [...] Sections Processing Blocks submitted for decalcification: A1. Clinical Nursing Instructor sections in 1 cassette labeled A1. ??ajw 02/24/2024 1:49 PM EDT [facility] AORTIC STRUCTURE / Unknown 02/17/2024 10:01 AM EDT 02/17/2024 10:01 AM EDT Zak Farmer MD PATHOLOGY/CYTOLOGY ORDERABLES Performing Organization Address City/[facility]/ZIP Co de Phone Number [facility] [place] [address] * Specimen to Pathology (02/17/2024 10:01 AM EDT) AP Specimen 02/17/2024 10:0 1 AM EDT 02/17/2024 10:01 AM EDT Narrative [facility] - 02/17/2024 10:01 AM EDT Specimen requisition ordered. ??Separate Pathology report to follow Zak Farmer MD PATHOLOGY/CYTOLOGY ORDERABLES Performing Organization Address City/[facility]/ZIP Co de Phone Number [facility] [place] [address] * (ABNORMAL) BLOOD GAS 2 VENOUS (02/17/2024 9:34 AM EDT) pH, Venous 7.22(Criti marquez) 7.32 - 7.42 [facility] Comment:Noted by instrumentation controls engineer. PCO2, Venous 43 41 - 51 mmHg [facility] Comment:Noted by instrumentation controls engineer. PO2, Venous 57(H) 25 - 40 mmHg [facility] Comment:Noted by instrumentation controls engineer. Bicarbonate, Venous 17.1 mmol/L [facility] Comment:Noted by instrumentation controls engineer. Base Excess, Venous -10.6 mmol/L [facility] Comment:Noted by instrumentation controls engineer. Hgb Blood Gas 11.2(L) 13.7 - 16.5 g/dL [facility] Comment:Noted by instrumentation controls engineer. Oxyhemoglobin, Venous 86.5 % [facility] Comment:Noted by instrumentation controls engineer. Carboxyhemoglob in, Venous 0.3 % [facility] Comment: Noted by instrumentation controls engineer. Nonsmokers: 0.5-1.5% COHB Smokers: Variable, but usually less than 10% Toxic: 20-30% COHB Lethal: Greater than 60% COHB Methemoglobin, Venous 0.0 <=1.5 % [facility] Comment:Noted by instrumentation controls engineer. Na Whole Blood 156(H) 135 - 145 mmol/L [facility] Comment:Noted by instrumentation controls engineer. K Whole Blood 5.5(H) 3.5 - 5.0 mmol/L [facility] Comment: Noted by instrumentation controls engineer. Please note: Patients with WBC >100,000 may have falsely elevated Potassium levels. Contact the Clinical Chemistry Laboratory if there are any questions. ICa Whole Blood 1.03(L) 1.15 - 1.33 mmol/L [facility] Comment: Noted by instrumentation controls engineer. Note: ??Total bilirubin higher than 20 mg/dL may lead to falsely low ionized calcium. CL Whole Blood 100 98 - 107 mmol/L [facility] Comment:Noted by instrumentation controls engineer. Gluc Whole Bld 132 65 - 199 mg/dL [facility] Comment: Noted by instrumentation controls engineer. Diabetes: >=200 mg/dL plus symptoms Lactate WB 1.0 0.5 - 2.2 mmol/L [facility] Comment:Noted by instrumentation controls engineer. Blood Gas Source Venous [facility] Blood 02/17/2024 9:34 AM EDT 02/17/2024 9:34 AM EDT Zak Farmer MD POINT OF CARE TEST ORDERABLES [facility] [place] [address] * Transesophageal Echo/OR (02/17/2024 6:33 AM EDT) [...] complete transes[facility] [...] Status decision made by: Patient Care Teams Appeals Coordinator Relationship Specialty Start Date End Date Aparna Jordan APRN PCP - General Family Medicine 10/21/23
--- OUTSIDE RECORDS SUMMARY | 2024-05-15 07:57 | XMS_ITS | Encounter Summary ---
Author Organization [facility] Address [address] [place] [address] Care Team Providers Care Colorist Dyer Name Role Phone Vanessa Christian Lane MONCADA Primary Care Provider [phone] Encounter Details Date Type Department Care Team (Late st Contact Info) Description 10/24/2023 Lab Requisition [facility] Pathology & Laboratory Medicine - [address] [address] Oscar Nichole MD [address] [place] [address] [phone] Factitial dermatitis Social History Tobacco Use Types [...] management options, if applicable. 10/28/2023 11:24 EST [facility] Final Diagnosis A. SKIN OF RASTAFARI, LEFT, SHAVE BIOPSY: - Seborrheic keratosis, pigmented. 10/28/2023 11:24 EST [facility] Attestation By the signature below, the attending physician certifies that they have 1) personally conducted a gross and/or microscopic examination of the described specimen(s), and/or personally interpreted the results of laboratory testing of the described specimen(s), and 2) personally rendered or confirmed the above diagnosis. 10/28/2023 11:24 [facility] at 1124 Microscopic Description The stratum corneum is thickened by compact and basketweave orthokeratosis with formation of horn pseudocysts. The epidermis is acanthotic with formation of broad and anastomosing trabeculae. The trabeculae are composed of basaloid keratinocytes with round uniform nuclei. The keratinocytes have a variable amount of melanin pigment. 10/28/2023 11:24 [facility] Clinical History Pigmented 2 cm patch; clinical diagnosis code: L98.1 10/28/2023 11:24 [facility] Gross Description A. Received in formalin labelled with proper patient identification (initials P, A) and left worship is a shave biopsy of an irregular [...] A3. Nora Anderson 10/25/2023 8:47 10/28/2023 11:24 [facility] Performing Lab [facility] 10/28/2023 11:24 [facility] Scanned Images 10/28/2023 11:24 [facility] Tissue SPECIMEN FROM SKIN / Unknown 10/24/2023 14:30 EST 10/24/2023 22:04 EST Oscar Nichole MD PATHOLOGY ORDERABLES [facility] [address] [place] [address] documented in this encounter Visit Diagnoses Diagnosis Factitial dermatitis Dermatitis factitia (artefacta) documented in this encounter Care Teams Colorist Dyer Relationship Specialty Start Date End Date Vanessa Christian NP [address] [place] [address] PCP - General Family Medicine - Primary Care 10/07/23 documented as of this encounter
--- OUTSIDE RECORDS SUMMARY | 2024-05-15 07:58 | XMS_ITS | Encounter Summary ---
Author Organization [facility] Address [facility] [place] [address] Care Team Providers Care Commodity Broker Name Role Phone Vanessa Christian MAURI Primary Care Provider [phone] Encounter Details Date Type Department Care Team (Latest Contact Info) Description 01/09/2024 3:02 PM EDT - 01/09/2024 11:59 PM EDT Hospital Encounter XRay at [address] [place] [address] Zak Farmer MD [facility] C[facility] [address] Nonrheumatic aortic valve stenosis Discharge Disposition: Home Social History Tobacco Use Types Packs/Day Years Used Date Smoking Tobacco: Former Cigarettes Smokeless Tobacco: Never Comments:Quit 15 + years ago Alcohol Use Standard Drinks/Week Comments Yes 0 (1 standard drink = 0.6 oz pur e alcohol) rare [facility] Inpatient Questions Answer Date Recorded Prevent Contact [...] Place 1 drop into both eyes daily. chlorhexidine (HIBICLENS) 4 % Liquid Apply topically daily as needed. Shower from head to toe with Chlorhexidine the night before surgery . 01/09/2024 02/24/2024 mupirocin (Bactroban) 2 % Ointment Apply 1 each topically 2 times daily. Apply a small amount to each nostril twice daily. Begin 5 days prior to the day of surgery. 22 g 01/09/2024 02/24/2024 lisinopriL (Zestril) 5 mg tablet Take 5 mg by mouth daily. 02/24/2024 documented as of this encounter Plan of Treatment Upcoming Encounters Date Type Department Care Team (Late st Contact Info) Description 05/27/2024 11:00 AM EDT Office Visit Cardiology at [address] [place] [address] Neftali Ernandez MD [facility] [address] documented as of this encounter Procedures Procedure [...] who have questions please contact the health childcare director that requested your imaging first. ? Electronically signed by: Toby Dave MD, [facility] ([phone]), at 01/09/2024 3:11 PM Narrative 01/09/2024 3:11 [...] patients who have questions please contactthe health childcare director that requested your imaging first. Electronically signed by: Toby Dave MD, [facility]([phone]), at 01/09/2024 3:11 PM Zak Farmer MD IMG DX ORDERABLES documented in this encounter Visit Diagnoses Diagnosis Nonrheumatic aortic valve stenosis Aortic valve disorders documented in this encounter Care Teams Commodity Broker Relationship Specialty Start Date End Date Vanessa Christian APRN PCP - General Family Medicine 10/21/23 documented as of this encounter
--- OUTSIDE RECORDS SUMMARY | 2024-05-15 07:58 | XMS_ITS | Encounter Summary ---
Author Organization [facility] Address [facility] [place] [address] Care Team Providers Care Library Information Technician Name Role Phone Vanessa Christian MAURI Primary Care Provider [phone] Encounter Details Date Type Department Care Team (Late st Contact Info) Description 02/14/2024 Orders [place] [phone] Zak Farmer MD [facility] [place] [address] Coronary artery disease, unspecified vessel or lesion type, unspecified whether angina present, unspecified whether curyung or transplanted heart (Primary Dx) Social History [...] AM EDT Office Visit Cardiology at [address] [place] [phone] Neftali Ernandez MD [facility] [place] [address] documented as of this encounter Results * EKG 12 Lead (03/12/2024 2:35 PM EDT) Ventricular rate 59 BPM MUSE SYSTEM Atrial Rate 59 BPM MUSE SYSTEM P-R Interval 190 ms MUSE SYSTEM QRS Duration 92 ms MUSE SYSTEM Q-T Interval 406 ms MUSE SYSTEM QTC Calculated (Bezet) 401 ms MUSE SYSTEM Calculated P Atkinson -12 degrees MUSE SYSTEM Calculated R Atkinson 24 degrees MUSE SYSTEM Calculated T Atkinson 74 degrees MUSE SYSTEM INTERPRETATION Sinus bradycardia T wave abnormality, consider anterior ischemia Abnormal ECG When compared with ECG of 17-FEB-2024 13:24, HI interval has decreased T wave inversion now evident in Anterior leads Confirmed by Paul Guzman ([id number]) on 03/15/2024 8:36:23 AM MUSE SYSTEM 03/12/2024 2:35 PM EDT 03/15/2024 8:36 AM EDT Zak Farmer MD ECG ORDERABLES MUSE SYSTEM * XR Chest PA & Lateral (Generic) (03/12/2024 1:42 PM EDT) WORKSTATION ID [id number] RAD Anatomical Region Laterality Modality Chest N/A [...] who have questions please contact the health wound care nurse that requested your imaging first. ? 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 Zak Farmer MD IMG DX ORDERABLES documented in this encounter Visit Diagnoses Diagnosis Coronary artery disease, unspecified vessel or lesion type, unspecified whether angina present, unspecified whether curyung or transplanted heart- Primary Coronary artery disease, unspecified vessel or lesion type, unspecified whether angina present, unspecified whether curyung or transplanted heart documented in this encounter Care Teams Library Information Technician Relationship Specialty Start Date End Date Vanessa Christian APRN PCP - General Family Medicine 10/21/23 documented as of this encounter
--- OUTSIDE RECORDS SUMMARY | 2024-05-15 07:58 | XMS_ITS | Encounter Summary ---
Author Organization [facility] [place] [address] Care Team Providers Care Claims Adjudicator Name Role Phone Vanessa Christian APRN Primary Care Provider [phone] Encounter Details Date Type Department Care Team (Late st Contact Info) Description 12/26/2023 Notes Only Cardiology at [address] [address] Neftali Ernandez MD [facility] [place] [address] Social History Tobacco Use Types Packs/Day Years [...] 1:37 PM EDT Echocardiogram images reviewed from [facility]. Indeed, the aortic valve appears severely stenotic. Cannotrule out bicuspid valve documented in this encounter Plan of Treatment Upcoming Encounters Date Type Department Care Team (Late st Contact Info) Description 05/27/2024 11:00 AM EDT Office Visit Cardiology at [address] [address] Neftali Ernandez MD [facility] [place] [address] documented as of this encounter Visit Diagnoses Not on filedocumented in this encounter Care Teams Claims Adjudicator Relationship Specialty Start Date End Date Vanessa Christian APRN PCP - General Family Medicine 10/21/23 documented as of this encounter
--- OUTSIDE RECORDS SUMMARY | 2024-05-15 07:58 | XMS_ITS | Encounter Summary ---
Author Organization [facility] [place] [address] Care Team Providers Care Papier Mache' Molder Name Role Phone Vanessa Christian MAURI Primary Care Provider [phone] Reason for Visit * Auth/Cert (Routine) Specialty [...] W RHC (WRVU 5.9) Rima Dickinson MD [facility] [place] [address] [facility] Referral ID Status Reason Start Date Expiration Date Visits Re quested Visits Authorized [id number] 1 1 Encounter Details Date Type Department Care Team (Late st Contact Info) Description 02/03/2024 10:00 AM EDT - 02/03/2024 11:00 AM EDT Surgery [place] [address] Saira Lua MD [facility] [place] [address] CARDIAC CATHETERIZATION Social History Tobacco Use Types [...] lbs Follow-up Visits 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 * CAD (Coronary Artery Disease): General Info (Turkish) * Coronary Angiogram: Post-op (Turkish) documented in this encounter Medications at Time of Discharge Medication Sig Dispensed Refills Start Date End Date lisinopriL (Zestril) 10 mg tablet Take 1 tablet by mouth daily. 01/29/2024 dorzolamide (Trusopt) 2 % Drops 3 times [...] daily. 02/24/2024 documented as of this encounter H&P Notes * Clarence Lane MD - 02/03/2024 11:48 AM EDT [facility] Interventional Cardiology Adult Pre-Procedure H&P Update: Cardiac Catheterization Karlos Anthony [id number] 1960 Chief Complaint: Aortic stenosis HPI: Mr. [...] is inthe chart Clarence Lane MD Interventional Seed Cone Picker 02/03/24 11:48 AM documented in this encounter Miscellaneous Notes * Brief Op Note - Clarence Lane MD - 02/03/2024 12:51 PM EDT Preliminary Cardiac Catheterization Procedure Note: Patient Name: Karlos Anthony : [id number] MR#: [id number] Case Date: 02/03/2024 General Engineering Teacher: Surgeon(s) and Role: * Saira Lua MD [...] AM EDT Office Visit Cardiology at [address] [phone] Neftali Ernandez MD [facility] [place] [address] Scheduled Orders Name Type Priority Associated Diagnoses [...] Modality Other Narrative 02/12/2024 3:47 PM EDT ?[facility] ? Cardiac Catheterization/Intervention Report ? Patient Name: Patenaude, Karlos ? Procedure Date: 02/03/2024 ? A #: [id number] ? Primary Physician: Saira Lua ? Case #: [id number] ? File Name: [id number] ? Catheterization Order Number: [id number] ? [facility] ? Final Report [place], [place] ? Patient Name: ? Karlos Patenaude ? ID#: ?[id number] ? : ?1960 ? Procedure Date: ? February 03, 2024 ? Case #: ? [id number] ? Room: ? 5 ? Case Physician: [...] Procedure Note Saira Lua MD - 02/12/2024 [facility] Cardiac Catheterization/Intervention Report Patient Name: Karlos Anthony Procedure Date: 02/03/2024 A #: [id number] Primary Physician: Saira Lua Case #: [id number] File Name: [id number] Catheterization Order Number: [id number] [facility] FinalReport [place], [place] Patient Name: Karlos Anthony ID#:[id number] :1960 Procedure Date: February 03, 2024 Case [...] was designated as ASA Class III. The [facility] clinical frailty scale is 3: [...] (Bezet) 372 ms MUSE SYSTEM Calculated P [place]ie 59 degrees MUSE SYSTEM Calculated R [place] 34 degrees MUSE SYSTEM Calculated T Venetie 63 degrees MUSE SYSTEM INTERPRETATION Sinus bradycardia [...] MD) documented in this encounter Care Teams Papier Mache' Molder Relationship Specialty Start Date End Date Vanessa Christian, MAURI PCP - General Family Medicine 10/21/23 documented as of this encounter
--- OUTSIDE RECORDS SUMMARY | 2024-05-15 07:58 | XMS_ITS | Encounter Summary ---
Author Organization [facility] [place] [address] Care Team Providers Care Simulation Technician Name Role Phone Vanessa Christian APRN Primary Care Provider [phone] Encounter Details Date Type Department Care Team [...] AM EDT Office Visit Cardiology at [address] [place] [phone] Neftali Ernandez MD [facility] [place] [address] documented as of this encounter Visit Diagnoses Not on filedocumented in this encounter Care Teams Simulation Technician Relationship Specialty Start Date End Date Vanessa Christian APRN PCP - General Family Medicine 10/21/23 documented as of this encounter
--- OUTSIDE RECORDS SUMMARY | 2024-05-15 07:58 | XMS_ITS | Encounter Summary ---
[place] [address] Care Team Providers Care Dexigraph Operator Name Role Phone Aparna Jordan MAURI Primary Care Provider [phone] Reason for Referral * Diagnostic Test (Routine) - New Request Specialty Diagnoses / Procedures Referred By Contac t Referred To Contact Cardiology Diagnoses S/P AVR Procedures Echocardiogram Transthoracic Neftali Menon PA [facility] CARDIOTHORACIC [place] [address] [facility] [place] [address] Referral ID Status Reason Start Date Expiration Date Visits Requested Visits Authorized [id number] New Request Specialty Service Requested 02/24/2024 02/23/2025 1 1 * Consultation (Routine) - Authorized Specialty Diagnoses / Procedures Referred By Contac t Referred To Contact Cardiology Diagnoses S/P AVR Zak Graham MD [facility] CARDIOTHORACIC [place] [address] Cardiac Rehab, [facility] [address] [place] [address] [place] [address] Referral ID Status Reason Start Date Expiration Date Visits Requested Visits Authorized [id number] Authorized Consult, Test & Treat 02/24/2024 08/22/2024 36 36 * Home Health Care (Routine) - Authorized Specialty Diagnoses / Procedures Referred By Sixto mendoza Referred To Contact Diagnoses S/P AVR Zak Graham MD [facility] CARDIOTHORACIC [place] [address] Referral ID Status Reason Start Date Expiration Date Visits Requested Visits Authorized [id number] Authorized Consult, Test & Treat 02/24/2024 08/22/2024 [...] MD [facility] CARDIOTHORACIC [place] [address] [facility] Referral ID Status Reason Start Date Expiration Date Visits Re quested Visits Authorized [id number] 1 1 Encounter Details Date Type Department Care Team (Latest Contact Info) Description 02/17/2024 5:43 AM EDT - 02/24/2024 11:23 AM EDT Hospital Encounter Heart and Vascular Unit Level 4 [place] [address] Zak Graham MD [facility] CARDIOTHORACIC [place] [address] S/P AVR (Primary Dx); Aortic valve stenosis, etiology of cardiac valve disease unspecified Discharge Disposition: Home with VNA Social History Tobacco Use Types Packs/Day Years Used Date Smoking Tobacco: Former Cigarettes Smokeless Tobacco: Never Comments:Quit 15 + years ago Alcohol Use Standard Drinks/Week Comments Yes 0 (1 standard drink = 0.6 oz pur e alcohol) rare [facility] Utilities Answer Date Recorded In the [...] Patient Age: 63 y.o. Birthdate: 1960 Language: Amharic Race: White Ethnicity: Not nor Admit Date: 02/17/2024 Discharge Date: 02/24/24 Attending Physician: Zak Graham MD Follow-up Recommendations for Providers: Please continue routine management of cardiovascular risk factors including blood pressure, lipids,glucose, etc. Please note any changes to medications. Patient to follow up with PCP, Aparna Jordan APRN, in 1-2 weeks. Patient to follow up with Freight Traffic Consultant, Neftali Ernandez MD , in 2 weeks. Patient to follow up with Cardiac Surgeon, Dr. Zak Graham, with a chest x-ray, EKG, and Echo. 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 Past Surgical History: Procedure Laterality Date PRO CABG, ARTERIAL, SINGLE N/A 02/17/2024 @CABG, USING ARTERIAL GRAFT;SINGLE ARTERIAL GRAFT (WRVU 33.75) performed by Zak Graham MD at [facility] MAIN OR PRO CABG, ARTERY-VEIN, TWO N/A 02/17/2024 @CABG, TWO VENOUS GRAFTS & ARTERIAL GRAFT (WRVU 7.93) performed by Zak Graham MD at [facility] MAIN OR PRO ENDOSCOPY W/VIDEO-ASST VEIN HARVEST, CABG Left 02/17/2024 ENDOSCOPIC HARVEST VEIN(S) FOR CABG (WRVU 0.31) performed by Zak Graham MD at [facility] MAIN OR PRO REPLACEMENT PROSTHETIC AORTIC VALVE OPEN W CARDIOPULMONARY BYPASS HOMOGRF/STENT N/A 02/17/2024 @REPLACE AORTIC VALVE, OPEN, W\CPB, W\PROSTHETIC VALVE (WRVU 41.32) performed by Zak Graham MD at [facility] MAIN OR Prior To Admission Medications [...] insufficiency. He has glaucoma. He used to [employer] until about 15 years ago. He has undergone prior herniorrhaphy. 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 Major Procedures/Operations: 02/17/24 s/p avr/cabgx3 CABG x 3 JOSE->LAD SVG->dRCA SVG->OM1 EVH from LLE AVR with a 23 mm Inspiris Bioprosthesis Hospital Course: Viraj Garcia was admitted to [facility] on 02/17/2024 via the Same Day [...] Zak Graham and/or the Cardiac Surgery Physician Cryptography Teacher Team may be reached at . Antibiotic [...] Please refer to the card with the [place] [employer] Guidelines for more information. You [...] Dr. Zak Graham. You may use a [place] Track or treadmill but avoid any pulling [...] friends, go to a movie, go to restoration, etc. Heavy activities: No hunting, skiing, jogging, [...] should resume a low fat, low cholesterol, [place] Heart [employer] Diet. Driving: No driving until [...] while being managed by your PCP and/or Freight Traffic Consultant. For future medication refills, please refer to your PCP and/or Freight Traffic Consultant after your discharge from our service. Thank you REMOVE CHEST TUBE SUTURES ON OR AFTER 03/02/24 Home oxygen therapy: N/A Follow up appointments: You should follow up with your PCP, Aparna Jordan APRN, in 1-2 weeks. Our office will schedule an appointment with your Freight Traffic Consultant, Neftali Ernandez MD , in 2 [...] Future Orders Complete By Expires Echocardiogram Transthoracic [90536 CPT(R)] 03/26/2024 09/25/2024 Process Instructions: Scheduling Instructions: Questions: Where will study be performed?: [facility] Does the patient have Congenital Heart Disease?: Does patient require sedation?: Sedation rationale: XR Chest PA & Lateral (Generic) [68641 09536 Custom] 03/26/2024 09/25/2024 Process Instructions: Scheduling Instructions: Questions: Portable exam?: Reason for exam and clinical history: s/p avr/cabg Clinical information / jerome questions for radiologist: Stat read required?: Date of injury if applicable: Requested Time: Where will study be performed?: [facility] Radiology Referral to Cardiac Rehab [[id number] Custom] As directed Process Instructions: If no [...] admission to Home Health. [address] Phone Number: Date of : 1960 Inpatient DOCUMENTATION FOR VNA SERVICES (INCLUDING THOSE PATIENTS WITH MEDICARE COVERAGE REQUIRING HOME VNA SERVICES AND/OR HOSPICE SERVICES) PATIENT'S LOCATION: Viraj Garcia [address] gdgt [phone] Insurance Verifier's Name: self/family In discussion with the attending physician, it is certified that this patient is under their care and that they, or a Nurse Practitioner, or Physician Cryptography Teacher who is working directly with them, hada [...] for services as follows: HOME HEALTH AGENCY: [facility] [address] [place] [address] RN orders: Cardiopulmonary assessment, incisional assessment, assess [...] issues please call the Cardiology Office at [phone] FOR MEDICARE ONLY: (please delete this section [...] APRN [address] / [place] [address] . All VNA agencies which cover the area of patient's residence have been reviewed, either verbally or in writing, and patient/family have chosen the home health care agency noted. Questions: Disciplines Requested: Nursing Physical Therapy Arrangements for VNA/home care: As above. Signed: NEFTALI MENON PA-C [facility] Section of Cardiac Surgery [facility] [address] FAX [phone] Date: 02/24/2024 CC: Aparna Jordan, MAURI Jordan, Aparna Sherman APRN [address] [place] [address] documented in this encounter Discharge Instructions * [...] Zak Graham and/or the Cardiac Surgery Physician Cryptography Teacher Team may be reached at . Antibiotic [...] Please refer to the card with the [place] Heart [employer] Guidelines for more information. You [...] Dr. Zak Graham. You may use a [place] Track or treadmill but avoid any pulling [...] friends, go to a movie, go to restoration, etc. Heavy activities: No hunting, skiing, jogging, [...] should resume a low fat, low cholesterol, [place] Heart [employer] Diet. Driving: No driving until [...] while being managed by your PCP and/or Freight Traffic Consultant. For future medication refills, please refer to your PCP and/or Freight Traffic Consultant after your discharge from our service. Thank you REMOVE CHEST TUBE SUTURES ON OR AFTER 03/02/24 Home oxygen therapy: N/A Follow up appointments: You should follow up with your PCP, Aparna Jordan APRN, in 1-2 weeks. Our office will schedule an appointment with your Freight Traffic Consultant, Neftali Ernandez MD , in 2 [...] eyes daily. documented as of this encounter Progress Notes [...] 0600 and on the weekends please page [phone]. * Eric Barahona PA - 02/23/2024 9:27 [...] 0600 and on the weekends please page [phone]. * Tiffanie Owens - 02/22/2024 2:48 PM [...] Pt reports his dtr is coming from [place] to stay upon d/c for 10 days. Pt was indep TIER OVER. He drives. He works Precautions/Special Considerations: STERNAL [...] LRAD and supervision Time IN / OUT: 9071-6366 Total Time: 30 minutes; TEFx2 Tiffanie Owens Pager: [phone] Physical Therapy Inpatient Rehabilitation Department * Romeo [...] 0600 and on the weekends please page [phone]. * Kelley Hinson PTA - 02/21/2024 10:15 [...] Pt reports his dtr is coming from [place] to stay upon d/c for 10 days. Pt was indep TIER OVER. He drives. He works Precautions/Special Considerations: STERNAL [...] LRAD and supervision Time IN / OUT: 2029-1983 Total Time: 25 minutes; TEF 2 Kelley Hinson PTA Pager: [phone] Physical Therapy Inpatient Rehabilitation Department * [place]a [...] 0600 and on the weekends please page [phone]. * Kelley Hinson PTA - 02/20/2024 3:32 [...] at that time Kelley Hinson PTA Pager: [phone] Physical Therapy Inpatient Rehab Department * [place]a [...] 0600 and on the weekends please page [phone]. * Chrystal Benavides, PT - 02/19/2024 11:22 [...] Pt reports his dtr is coming from [place] to stay upon d/c for 10 days. Pt was indep TIER OVER. He drives. He works. Precautions/Special Considerations: STERNAL [...] outlined inthis evaluation. CHRYSTAL BENAVIDES, PT Pager: [phone] Physical Therapy Inpatient Rehabilitation Department Time IN / OUT: 1170-0198 Total Time: 38 (eval) minutes; * Antonio [...] 0600 and on the weekends please page [phone]. * Minnie Begum PA - 02/18/2024 8:25 [...] site CDI with KEVYN wrap Tubes/Lines/Drains: RIJ/PAC, Estrelal, Med Ctx, L pleural CT, TPW, Naqvi [...] 0600 and on the weekends please page [phone]. * Kim Ha ENERGY SCHEDULER - 02/17/2024 2:25 PM EDT Respiratory Care [...] plan since last visit. Zak Graham MD [phone] Source Note - Zak Graham MD - [...] given written informed consent. Zak Graham MD [phone] * Zak Graham MD - 02/17/2024 7:00 [...] given written informed consent. Zak Graham MD [phone] documented in this encounter Miscellaneous Notes * [...] information for follow-up Home Health & Hospice, [address] [place] [address] Cardiac Rehab, [address] [place] [address] Transportation: family or friend will provide Functional status prior to admission: Independent Home Environment: Others in the home: alone. Current Living Arrangements: home/apartment/condo. Accessibility Concerns:a few steps to enter 1 floor home. Current Functional Ability: Assistive Person and Equipment DME used at home: none DME Needed at Discharge: N/A Patient is insured through: Primary Insurance: [facility] Payor: [facility] / Plan: [facility] PPO / Product Type: *No [...] managed with scheduled Tylenol. 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 Ambulated in the roque multiple times during [...] anticipated Patient is insured through: Primary Insurance: [facility] Payor: [facility] / Plan: [facility] PPO / Product Type: *No Product type* / Secondary Insurance: N/A Last Physical Therapy Recommendation: home with home health (Str coming to stay for a week or two upon d/c) with to be determined (owns rolling walker, shower seat) Plan for discharge is: Home w/ Services Outpatient Agency/Support Group Needs: Homecare agency Home Health Services: Physical Therapy, Registered Nurse Agency Referrals: [facility] [address] [place] [address] Transportation: family or friend will provide Barriers to discharge: Discharge planning Plan going forward: Service Care Management will continue to follow and assist with discharge planning and coordination of care as indicated. 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 (Only good for 180 days) Any patient receiving care in [place] must abide by [place] law. The hierarchy for surrogate decision making [...] (i) The agent with financial power of mergers and acquisitions attorney or a conservator appointed in accordance [...] steady place to sleep or slept in [facility] (including now)?: No In the past 12 months has the electric, gas, oil, or water [employer] threatened to shut off services in your [...] as: [address] [facility] [address] Physical address: [address] [facility], [address] Social & Family Supports: All names listed [...] Information: none noted Health/Prescription Coverage: Primary Insurance: [facility] Payor: [facility] / Plan: [facility] PPO / Product Type: *No Product type* / Secondary Insurance: N/A ; Prescription Coverage: Yes Preferred Pharmacy: [id number] [address] Status: Patient is a : No Primary Care Provider confirmed: Aparna Jordan, MAURI [phone] Patient/Caregiver Goals of Treatment: dc to home Potential Needs for Transition of Care: home health care Agency Referrals: I have met with the patient to: discuss discharge planning needs. provide the [facility] Office of Care Management letter from the Stock Car Driver pertaining to rehab referrals. provide a letter describing our affiliations within the [facility] and educate about their right to choose where referrals are sent. provide a list of Home Health Agencies / Durable Medical Equipment vendors which serve their preferred geographic area. provided patient with [facility] Star Quality Rating handout. They have requested referrals to: [facility] [address] [place] [address] Note routed to a Architect who will communicate referrals to facilities and [...] daughter, Cielo, will be coming in from [place] on 02/18, to stay with him , [...] Reina Greene RN CM, BSN, CMGT-BC Ext [phone] * Plan of Care - Binta Trinidad [...] Operative Note Patient Name: Viraj Garcia : [id number] MR#: [id number] Case Date: 02/17/2024 Surgeon: Surgeon(s) and Role: * Zak Graham MD - Primary * Neftali Menon PA - Physician Cryptography Teacher Preoperative diagnosis: CAD Postoperative diagnosis: CAD, intraoperative [...] mL Drains: Mediastinal and Left pleural Disposition: [facility] Condition: doing well without problems Attestation: Case Date: 02/17/2024 I performed this procedure without the involvement of a resident. ZAK GRAHAM MD 02/17/2024 * Op Note - Zak Graham MD - 02/17/2024 8:20 AM EDT [facility] Oper[place] Note Patient Name: Viraj Garcia : [id number] MR#: [id number] Case Date: 02/17/2024 Surgeon: Surgeons and Role: * Zak Graham MD - Primary * Neftali Menon PA - Physician Cryptography Teacher Preoperative diagnosis: CAD Postoperative diagnosis: CAD, intraoperative [...] mL Drains: Mediastinal and Left pleural Disposition: [facility] Procedure Description: The patient was brought [...] AM EDT Office Visit Cardiology at [address] [id number] Neftali Ernandez MD [facility] [place] [address] Scheduled Orders Name Type Priority Associated Diagnoses [...] Aortic Valve Open W Cardiopulmonary Bypass Homogrf/Stent ([id number]) Yes 02/17/2024 7:28 AM EDT CAD Cabg, Artery-Vein, Two (28787) Yes 02/17/2024 7:28 AM EDT CAD Cabg, Arterial, Single (14371) Yes 02/17/2024 7:28 AM EDT CAD Endoscopy W/Video-Asst Vein [place], Cabg ([id number]) Yes 02/17/2024 7:28 AM EDT CAD POCT GLUCOSE Routine 02/17/2024 6:38 AM EDT TRANSESOPHAGEAL ECHOCARDIOGRAM IN THE OR Routine 02/17/2024 6:33 AM EDT Aortic valve stenosis, etiology of cardiac valve disease unspecified LAB SCAN 02/17/2024 12:00 AM EDT IMPLANTABLE DEVICES SCAN 02/17/2024 12:00 AM EDT documented in this encounter Results * Potassium (02/24/2024 4:42 AM EDT) Potassium 4.0 3.5 - 5.0 mmol/L [facility] Lab Zak Graham MD CHEMISTRY ORDERABLE S [facility] [place] [address] * (ABNORMAL) Basic Metabolic Panel (non-fasting) (02/23/2024 4:24 AM EDT) Glucose 117 65 - 199 mg/dL [facility] Comment:Diabetes: >=200 mg/d L plus symptoms Blood Urea Nitrogen 18 10 - 20 mg/dL [facility] Creatinine 0.71(L) 0.80 - 1.50 mg/dL [facility] Sodium 138 135 - 145 mmol/L [facility] Potassium 4.4 3.5 - 5.0 mmol/L [facility] Comment: Please note: ??Patients with WBC >100,000 may have falsely elevated Potassium levels. ??For accurate Potassium quantification in these patients send serum separator tube (gold top) for subsequent determinations. ??Contact the Clinical Chemistry Laboratory if there are any questions. Chloride 101 98 - 107 mmol/L [facility] Carbon Dioxide 26 22 - 31 mmol/L [facility] Anion Gap 11 5 - 15 mmol/L [facility] Calcium 8.8 8.5 - 10.5 mg/dL [facility] Est Glomerular Filtration Rate 102 >=60 mL/min/1. 73 m?? [facility] [...] In Lab Romeo Carpio MD CHEMISTRY ORDERABLES [facility] [place] [address] * Potassium (02/22/2024 4:30 AM EDT) Potassium 3.5 3.5 - 5.0 mmol/L [facility] Lab Zak Graham MD CHEMISTRY ORDERABLE S [facility] [place] [address] * (ABNORMAL) Basic Metabolic Panel (non-fasting) (02/21/2024 9:45 AM EDT) Glucose 123 65 - 199 mg/dL [facility] Comment:Diabetes: >=200 mg/d L plus symptoms Blood Urea Nitrogen 22(H) 10 - 20 mg/dL [facility] Creatinine 0.78(L) 0.80 - 1.50 mg/dL [facility] Sodium 140 135 - 145 mmol/L [facility] Potassium 3.9 3.5 - 5.0 mmol/L [facility] Comment: Please note: ??Patients with WBC >100,000 may have falsely elevated Potassium levels. ??For accurate Potassium quantification in these patients send serum separator tube (gold top) for subsequent determinations. ??Contact the Clinical Chemistry Laboratory if there are any questions. Chloride 100 98 - 107 mmol/L [facility] Carbon Dioxide Not Perf 22 - 31 [facility] Comment:Add-on request. Yolanda le too old to perform test. Anion Gap Unable to Calculate 5 - 15 mmol/L [facility] Calcium 8.6 8.5 - 10.5 mg/dL [facility] Est Glomerular Filtration Rate 100 >=60 mL/min/1 .73 m?? [facility] Comment: [...] Carpio MD CHEMISTRY ORDERABLES Performing Organization Address City/[facility]/ZIP Co de Phone Number [facility] [place] [address] * Lactate, whole blood, send to lab ([facility] (02/21/2024 9:45 AM EDT) [facility] Lactate WB 2.0 0.5 - 2.2 mmol/L [facility] Blood 02/21/2024 9:45 AM EDT 02/21/2024 9:52 AM EDT Narrative Resulting Agency Comment Spec In Lab Zak Graham MD CHEMISTRY ORDERABLE S Performing Organization Address [facility] Co de Phone Number [facility] [place] [address] * (ABNORMAL) Hepatic Function Panel (02/21/2024 9:45 AM EDT) [facility] Protein, Total 5.7(L) 6.1 - 8.0 g/dL [facility] Albumin 3.3 3.2 - 5.2 g/dL [facility] Aspartate Aminotransferase 13 0 - 39 unit/L [facility] Alanine Aminotransferase 16 0 - 55 unit/L [facility] Alkaline Phosphatase 63 40 - 130 unit/L [facility] Bilirubin, Total 0.6 0.2 - 1.3 mg/dL [facility] Bilirubin, Direct 0.2 0.0 - 0.3 mg/dL [facility] Blood 02/21/2024 9:45 AM EDT 02/21/2024 9:52 AM EDT Narrative Resulting Agency Comment Spec In Lab Zak Graham MD CHEMISTRY ORDERABLE S [facility] [place] [address] * Lipase (02/21/2024 9:45 AM EDT) Lipase 56 0 - 60 unit/L [facility] Blood 02/21/2024 9:45 AM EDT 02/21/2024 9:52 AM EDT Narrative Resulting Agency Comment Spec In Lab Zak Graham MD CHEMISTRY ORDERABLE S [facility] [place] [address] * Amylase (02/21/2024 9:45 AM EDT) Amylase 69 28 - 100 unit/L [facility] Blood 02/21/2024 9:45 AM EDT 02/21/2024 9:52 AM EDT Narrative Resulting Agency Comment Spec In Lab Zak Graham MD CHEMISTRY ORDERABLE S Performing Organization Address [facility]/ZIP Co de Phone Number [facility] [place] [address] * Potassium (02/21/2024 3:08 AM EDT) Potassium 3.8 3.5 - 5.0 mmol/L [facility] [...] Lab Zak Graham MD CHEMISTRY ORDERABLE S [facility] [place] [address] * XR Chest PA & Lateral (Generic) (02/20/2024 10:19 AM EDT) WORKSTATION ID [id number] RAD Anatomical Region Laterality Modality Chest N/A [...] 02/17/2024 FINDINGS: Support devices: Interval removal of [place] catheter, endotracheal tube and mediastinal chest tubes The cardiac silhouette is stable status post median sternotomy, CABG and aortic valve replacement. There are small pleural effusions. No pneumothorax. Procedure Note Rogerio Cruz MD - 02/20/2024 EXAMINATION: XR CHEST PA AND LATERAL (GENERIC) CLINICAL HISTORY: s/p AVR/CABGx3 TECHNIQUE: PA and lateral views of the chest COMPARISON: 02/17/2024 FINDINGS: Support devices: Interval removal of [place] catheter, endotracheal tubeand mediastinal chest tubes The [...] physician assistant that requested your imaging first. Zak Graham MD IMG DX ORDERABLES * Scan, Peripheral Blood (02/20/2024 4:23 AM EDT) Pathologist [facility] Plat estimate Decreased [facility] RBC Morphology Normal [facility] Blood 02/20/2024 4:23 AM EDT 02/20/2024 4:42 AM EDT Narrative Resulting Agency Comment Spec In Lab Minnie FRENCH HEMATOLOGY CECILIO ALEMAN [facility] [place] [address] * (ABNORMAL) Differential, Automated (02/20/2024 4:23 AM EDT) [facility] Neutrophil % 81.7 % [facility] Neutrophil Absolute 10.37(H) 1.70 - 6.10 x10(3)/mc L [facility] Lymph % 7.4 % [facility] Lymphocytes Abs 0.9 0.9 - 3.2 x10(3)/mc L [facility] Monocyte % 9.7 % [facility] Monocyte Abs 1.2(H) 0.3 - 0.9 x10(3)/mc L [facility] Eos % 0.1 % [facility] Eosinophils Abs 0.0 0.0 - 0.4 x10(3)/mc L [facility] Basophil % 0.2 % [facility] Baso Absolute 0.0 0.0 - 0.1 x10(3)/mc L [facility] Immature Gran % 0.90 % [facility] Comment: Immature granulocytes(IG's)percentage and absolute count will include metamyelocytes, myelocytes, and promyelocytes. Blood smears from CBCs yielding IG's will be scanned manually for concordance. If this scan disagrees with the automated IG or if promyelocytes are noted, a manual differential will be performed. Immature Gran Absolute 0.12(H) 0.00 - 0.04 x10(3)/ L [facility] Blood 02/20/2024 4:23 AM EDT 02/20/2024 4:42 AM EDT Narrative Resulting Agency Comment Spec In Lab Minnie FRENCH HEMATOLOGY CECILIO ALEMAN [facility] [place] [address] * (ABNORMAL) Hemogram (02/20/2024 4:23 AM EDT) White Blood Cell 12.7(H) 4.0 - 9.5 x10(3)/ L [facility] Red Blood Cell 4.26(L) 4.58 - 5.54 x10(6)/mc L [facility] Hemoglobin 12.3(L) 13.7 - 16.5 g/dL [facility] Hematocrit 37.1(L) 40.5 - 48.5 % [facility] Mean Cell Volume 87.1 82.9 - 93.1 fL [facility] Mean Cell Hemoglobin 28.9 27.5 - 32.1 pg [facility] Mean Cell Hemoglobin Concentration 33.2 32.0 - 35.7 g/dL [facility] Platelet 88(L) 145 - 357 x10(3)/ L [facility] RDW Standard Deviation 43.5 36.0 - 45.0 fL [facility] RDW coefficient of variation 13.7 11.4 - 13.8 % [facility] Mean Platelet Volume 10.2 7.6 - 12.9 fL [facility] NRBC% auto 0.0 % [facility] NRBC Absolute 0.000 0.000 - 0.000 x10(3)/mc L [facility] Blood 02/20/2024 4:23 AM EDT 02/20/2024 4:42 AM EDT Narrative Resulting Agency Comment Spec In Lab Minnie FRENCH HEMATOLOGY ORDE ASH [facility] [place] [address] * (ABNORMAL) Basic Metabolic Panel (non-fasting) (02/20/2024 4:23 AM EDT) Glucose 113 65 - 199 mg/dL [facility] Comment:Diabetes: >=200 mg/d L plus symptoms Blood Urea Nitrogen 20 10 - 20 mg/dL [facility] Comment:result rechecked-[place] Creatinine 0.71(L) 0.80 - 1.50 mg/dL [facility] Sodium 135 135 - 145 mmol/L [facility] Potassium 3.9 3.5 - 5.0 mmol/L [facility] Comment: Please note: ??Patients with WBC >100,000 may have falsely elevated Potassium levels. ??For accurate Potassium quantification in these patients send serum separator tube (gold top) for subsequent determinations. ??Contact the Clinical Chemistry Laboratory if there are any questions. Chloride 102 98 - 107 mmol/L [facility] Carbon Dioxide 25 22 - 31 mmol/L [facility] Anion Gap 8 5 - 15 mmol/L [facility] Calcium 8.7 8.5 - 10.5 mg/dL [facility] Comment:result rechecked-[place] Est Glomerular Filtration Rate 102 >=60 mL/min/1. 73 m?? [facility] MD CHEMISTRY ORDERABLE S Performing Organization Address [facility] Co de Phone Number [facility] [place] [address] * Potassium (02/19/2024 3:57 AM EDT) Potassium 4.3 3.5 - 5.0 mmol/L [facility] MD CHEMISTRY ORDERABLE S Performing Organization Address [facility] Co de Phone Number [facility] [place] [address] * POCT Glucose (02/18/2024 8:24 AM EDT) Glucose, POC 157 65 - 199 mg/dL [facility] Comment: Supplemental ranges: <140 mg/dL before meals <180 mg/dL all other times of the day Blood 02/18/2024 8:24 AM EDT 02/18/2024 8:24 AM EDT Zak Graham MD POINT OF CARE TEST ORDERABLES [facility] [place] [address] * Scan, Peripheral Blood (02/18/2024 1:40 AM EDT) Plat estimate Decreased [facility] RBC Morphology Normal [facility] Blood 02/18/2024 1:40 AM EDT 02/18/2024 1:56 AM EDT Narrative Resulting Agency Comment Spec In Lab Neftali FRENCH HEMATOLOGY ORDER OLE Performing Organization Address City/[facility]/ZIP Co de Phone Number [facility] [place] [address] * (ABNORMAL) Differential, Automated (02/18/2024 1:40 AM EDT) [facility] Neutrophil % 87.1 % [facility] Neutrophil Absolute 15.03(H) 1.70 - 6.10 x10(3)/mc L [facility] Lymph % 3.0 % [facility] Lymphocytes Abs 0.5(L) 0.9 - 3.2 x10(3)/mc L [facility] Monocyte % 9.1 % [facility] Monocyte Abs 1.6(H) 0.3 - 0.9 x10(3)/mc L [facility] Eos % 0.0 % [facility] Eosinophils Abs 0.0 0.0 - 0.4 x10(3)/mc L [facility] Basophil % 0.2 % [facility] Baso Absolute 0.0 0.0 - 0.1 x10(3)/mc L [facility] Immature Gran % 0.60 % [facility] Comment: Immature granulocytes(IG's)percentage and absolute count will include metamyelocytes, myelocytes, and promyelocytes. Blood smears from CBCs yielding IG's will be scanned manually for concordance. If this scan disagrees with the automated IG or if promyelocytes are noted, a manual differential will be performed. Immature Gran Absolute 0.10(H) 0.00 - 0.04 x10(3)/mc L [facility] Blood 02/18/2024 1:40 AM EDT 02/18/2024 1:56 AM EDT Narrative Resulting Agency Comment Spec In Lab Neftali FRENCH HEMATOLOGY ORDER OLE [facility] [place] [address] * (ABNORMAL) Hemogram (02/18/2024 1:40 AM EDT) White Blood Cell 17.2(H) 4.0 - 9.5 x10(3)/mc L [facility] Red Blood Cell 4.71 4.58 - 5.54 x10(6)/mc L [facility] Hemoglobin 13.7 13.7 - 16.5 g/dL [facility] Hematocrit 39.2(L) 40.5 - 48.5 % [facility] Mean Cell Volume 83.2 82.9 - 93.1 fL [facility] Mean Cell Hemoglobin 29.1 27.5 - 32.1 pg [facility] Mean Cell Hemoglobin Concentration 34.9 32.0 - 35.7 g/dL [facility] Platelet 147 145 - 357 x10(3)/mc L [facility] RDW Standard Deviation 39.9 36.0 - 45.0 [facility] RDW coefficient of variation 13.2 11.4 - 13.8 % [facility] Mean Platelet Volume 9.9 7.6 - 12.9 [facility] NRBC% auto 0.0 % [facility] NRBC Absolute 0.000 0.000 - 0.000 x10(3)/mc L [facility] Blood 02/18/2024 1:40 AM EDT 02/18/2024 1:56 AM EDT Narrative Resulting Agency Comment Spec In Lab Neftali FRENCH HEMATOLOGY ORDER OLE [facility] [place] [address] * (ABNORMAL) Basic Metabolic Panel (non-fasting) (02/18/2024 1:40 AM EDT) Glucose 176 65 - 199 mg/dL [facility] Comment:Diabetes: >=200 mg/d L plus symptoms Blood Urea Nitrogen 10 10 - 20 mg/dL [facility] Creatinine 0.65(L) 0.80 - 1.50 mg/dL [facility] Sodium 135 135 - 145 mmol/L [facility] Potassium 4.2 3.5 - 5.0 mmol/L [facility] Comment: Please note: ??Patients with WBC >100,000 may have falsely elevated Potassium levels. ??For accurate Potassium quantification in these patients send serum separator tube (gold top) for subsequent determinations. ??Contact the Clinical Chemistry Laboratory if there are any questions. Chloride 106 98 - 107 mmol/L [facility] Carbon Dioxide 20(L) 22 - 31 mmol/L [facility] Anion Gap 9 5 - 15 mmol/L [facility] Calcium 7.6(L) 8.5 - 10.5 mg/dL [facility] Est Glomerular Filtration Rate 105 >=60 mL/min/1. 73 m?? [facility] [...] Lab Zak Graham MD CHEMISTRY ORDERABLE S [facility] [place] [address] * (ABNORMAL) Troponin (02/18/2024 1:40 AM EDT) Troponin-T, High Sensitivity 342(H) <=22 ng/L [facility] Comment: This [...] troponin value can be found in the [facility] Laboratory Test Catalog Troponin - [facility] Laboratory Test Catalog Reference: Fourth [place] Definition of Myocardial Infarction. Journal of the [place] [employer] 2018;72:1020-3131 Blood 02/18/2024 1:40 AM EDT 02/18/2024 1:56 AM EDT Narrative Resulting Agency Comment Spec In Lab Zak Graham MD CHEMISTRY ORDERABLE S Performing Organization Address [facility] Co de Phone Number [facility] [place] [address] * POCT Glucose (02/17/2024 8:13 PM EDT) Glucose, POC 142 65 - 199 mg/dL [facility] Comment: Supplemental ranges: <140 mg/dL before meals <180 mg/dL all other times of the day Blood 02/17/2024 8:13 PM EDT 02/17/2024 8:13 PM EDT Zak Graham MD POINT OF CARE TEST ORDERABLES Performing Organization Address [facility] Co de Phone Number [facility] [place] [address] * POCT Glucose (02/17/2024 5:42 PM EDT) Glucose, POC 160 65 - 199 mg/dL [facility] Comment: Supplemental ranges: <140 mg/dL before meals <180 mg/dL all other times of the day Blood 02/17/2024 5:42 PM EDT 02/17/2024 5:42 PM EDT Zak Graham MD POINT OF CARE TEST ORDERABLES Performing Organization Address [facility] Co de Phone Number [facility] [place] [address] * Hemoglobin (02/17/2024 5:42 PM EDT) Hemoglobin 13.7 13.7 - 16.5 g/dL [facility] Blood 02/17/2024 5:42 PM EDT 02/17/2024 6:10 PM EDT Narrative Resulting Agency Comment Spec In Lab Zak Graham MD HEMATOLOGY ORDERABL ES Performing Organization Address [facility]/ZIP Co de Phone Number [facility] [place] [address] * Potassium (02/17/2024 5:42 PM EDT) Pathologist [facility] Potassium 4.3 3.5 - 5.0 mmol/L [facility] MD CHEMISTRY ORDERABLE S Performing Organization Address [facility] Co de Phone Number [facility] [place] [address] * (ABNORMAL) BLOOD GAS 2 ARTERIAL (02/17/2024 4:18 PM EDT) pH, Arterial 7.34(L) 7.35 - 7.45 [facility] PCO2, Arterial 40 35 - 45 mmHg [facility] PO2, Arterial 78(L) 85 - 104 mmHg [facility] Bicarbonate, Arterial 20.8 20.0 - 26.0 mmol/L [facility] Base Excess, Arterial -5.1(L) -3.0 - 3.0 mmol/L [facility] Hgb Blood Gas 14.6 13.7 - 16.5 g/dL [facility] Oxyhemoglobin, Arterial 93.0(L) 94.0 - 97.0 % [facility] Carboxyhemoglob in, Arterial 0.3 % [facility] Comment: Nonsmokers: 0.5-1.5% COHB Smokers: Variable, but usually less than 10% Toxic: 20-30% COHB Lethal: Greater than 60% COHB Methemoglobin, Arterial 0.8 <=1.5 % [facility] Na Whole Blood 136 135 - 145 mmol/L [facility] K Whole Blood 4.1 3.5 - 5.0 mmol/L [facility] Comment: Please note: Patients with WBC >100,000 may have falsely elevated Potassium levels. Contact the Clinical Chemistry Laboratory if there are any questions. ICa Whole Blood 1.10(L) 1.15 - 1.33 mmol/L [facility] Comment: Note: ??Total bilirubin higher than 20 mg/dL may lead to falsely low ionized calcium. CL Whole Blood 105 98 - 107 mmol/L [facility] Gluc Whole Bld 159 65 - 199 mg/dL [facility] Comment:Diabetes: >=200 mg/d L plus symptoms. Lactate WB 1.2 0.5 - 2.2 mmol/L [facility] FIO2 Art 40 % [facility] PF Ratio Art 195 [facility] Blood 02/17/2024 4:18 PM EDT 02/17/2024 4:18 PM EDT Zak Graham MD POINT OF CARE TEST ORDERABLES Performing Organization Address City/State/[facility] Co de Phone Number [facility] [place] [address] * XR Chest One View (02/17/2024 1:44 PM EDT) [employer] WORKSTATION ID [id number] RAD Anatomical Region Laterality Modality Chest N/A Digital Radiogra phy Impressions 02/17/2024 2:12 PM EDT 1. ??No definite pleural fluid collection or pneumothorax. 2. ??Right IJ [place] catheter tip terminates in a descending branch [...] 5.2 cm above the carlos. Right IJ [place] catheter tip terminates in a descending branch [...] 5.2 cm above the carlos. Right IJ [place]-Ganzcatheter tip terminates in a descending branch of [...] fluid collection or pneumothorax. 2. Right IJ [place] catheter tip terminates in a descending branch [...] physician assistant that requested your imaging first. Zak Graham MD IMG DX ORDERABLES * (ABNORMAL) BLOOD GAS 2 ARTERIAL (02/17/2024 1:31 PM EDT) pH, Arterial 7.35 7.35 - 7.45 [facility] PCO2, Arterial 39 35 - 45 mmHg [facility] PO2, Arterial 320(H) 85 - 104 mmHg [facility] Bicarbonate, Arterial 21.4 20.0 - 26.0 mmol/L [facility] Base Excess, Arterial -4.2(L) -3.0 - 3.0 mmol/L [facility] Hgb Blood Gas 14.1 13.7 - 16.5 g/dL [facility] Oxyhemoglobin, Arterial 97.9(H) 94.0 - 97.0 % [facility] Carboxyhemoglob in, Arterial 0.3 % [facility] Comment: Nonsmokers: 0.5-1.5% COHB Smokers: Variable, but usually less than 10% Toxic: 20-30% COHB Lethal: Greater than 60% COHB Methemoglobin, Arterial 0.7 <=1.5 % [facility] Na Whole Blood 137 135 - 145 mmol/L [facility] K Whole Blood 4.2 3.5 - 5.0 mmol/L [facility] Comment: Please note: Patients with WBC >100,000 may have falsely elevated Potassium levels. Contact the Clinical Chemistry Laboratory if there are any questions. ICa Whole Blood 1.13(L) 1.15 - 1.33 mmol/L [facility] Comment: Note: ??Total bilirubin higher than 20 mg/dL may lead to falsely low ionized calcium. CL Whole Blood 108(H) 98 - 107 mmol/L [facility] Gluc Whole Bld 136 65 - 199 mg/dL [facility] Comment:Diabetes: >=200 mg/d L plus symptoms. Lactate WB 1.1 0.5 - 2.2 mmol/L [facility] FIO2 Art 100 % [facility] PF Ratio Art 320 [facility] Blood 02/17/2024 1:31 PM EDT 02/17/2024 1:31 PM EDT Zak Graham MD POINT OF CARE TEST ORDERABLES [facility] [place] [address] * (ABNORMAL) Coox2 (02/17/2024 1:21 PM EDT) pO2, Coox 44 mmHg [facility] Hgb Blood Gas 13.1(L) 13.7 - 16.5 g/dL [facility] Oxyhemoglobin, Coox 76.4 % [facility] Carboxyhemoglo bin, Coox 0.3 % [facility] Comment: Nonsmokers: 0.5-1.5% COHB Smokers: Variable, but usually less than 10% Toxic: 20-30% COHB Lethal: Greater than 60% COHB Methemoglobin, Coox 0.8 <=1.5 % [facility] Source Coox Mixed Venous [facility] Blood 02/17/2024 1:21 PM EDT 02/17/2024 1:21 PM EDT Zak Graham MD POINT OF CARE TEST ORDERABLES [facility] [place] [address] * (ABNORMAL) BLOOD GAS 2 ARTERIAL (02/17/2024 12:14 PM EDT) pH, Arterial 7.39 7.35 - 7.45 [facility] PCO2, Arterial 40 35 - 45 mmHg [facility] PO2, Arterial 338(H) 85 - 104 mmHg [facility] Bicarbonate, Arterial 23.7 20.0 - 26.0 mmol/L [facility] Base Excess, Arterial -1.3 -3.0 - 3.0 mmol/L [facility] Hgb Blood Gas 11.0(L) 13.7 - 16.5 g/dL [facility] Oxyhemoglobin, Arterial 98.8(H) 94.0 - 97.0 % [facility] Carboxyhemoglob in, Arterial 0.3 % [facility] Comment: Nonsmokers: 0.5-1.5% COHB Smokers: Variable, but usually less than 10% Toxic: 20-30% COHB Lethal: Greater than 60% COHB Methemoglobin, Arterial 0.3 <=1.5 % [facility] Na Whole Blood 135 135 - 145 mmol/L [facility] K Whole Blood 5.1(H) 3.5 - 5.0 mmol/L [facility] Comment: Please note: Patients with WBC >100,000 may have falsely elevated Potassium levels. Contact the Clinical Chemistry Laboratory if there are any questions. ICa Whole Blood 1.13(L) 1.15 - 1.33 mmol/L [facility] Comment: Note: ??Total bilirubin higher than 20 mg/dL may lead to falsely low ionized calcium. CL Whole Blood 106 98 - 107 mmol/L [facility] Gluc Whole Bld 132 65 - 199 mg/dL [facility] Comment:Diabetes: >=200 mg/d L plus symptoms. Lactate WB 1.4 0.5 - 2.2 mmol/L [facility] Blood 02/17/2024 12:1 4 PM EDT 02/17/2024 12:14 PM EDT Zak Graham MD POINT OF CARE TEST ORDERABLES Performing Organization Address [facility] Co de Phone Number [facility] [place] [address] * (ABNORMAL) Fibrinogen (02/17/2024 12:10 PM EDT) Fibrinogen 154(L) 200 - 393 mg/dL [facility] Comment: OR Result [...] MD HEMATOLOGY ORDERABLE S Performing Organization Address [facility] de Phone Number [facility] [place] [address] * (ABNORMAL) Thrombin time (02/17/2024 12:10 PM EDT) Thrombin Time 18(H) 10 - 17 sec [facility] Comment: OR Result [...] MD HEMATOLOGY ORDERABLE S Performing Organization Address [facility]/ZIP Co de Phone Number [facility] [place] [address] * APTT (02/17/2024 12:10 PM EDT) Partial Thromboplastin Time 33 25 - 37 sec [facility] Comment: OR Result [...] MD HEMATOLOGY ORDERABLE S Performing Organization Address City/[facility]/ZIP Co de Phone Number [facility] [place] [address] * (ABNORMAL) Prothrombin Time (02/17/2024 12:10 PM EDT) Prothrombin Time 16.7(H) 9.4 - 12.5 sec [facility] Comment: OR Result called by ?? LOMARL OR Results read back by: ? silvia pagan at 2024-02-17 12:41:48 International Normalization Ratio 1.5 [facility] Comment: OR Result [...] Lab Tara York MD HEMATOLOGY ORDERABLE S [facility] [place] [address] * (ABNORMAL) Hemogram (02/17/2024 12:10 PM EDT) White Blood Cell 11.1(H) 4.0 - 9.5 x10(3)/mc L [facility] Red Blood Cell 3.50(L) 4.58 - 5.54 x10(6)/mc L [facility] Hemoglobin 10.4(L) 13.7 - 16.5 g/dL [facility] Hematocrit 30.2(L) 40.5 - 48.5 % [facility] Comment: This result has been called to SILVIA PAGAN by Eddie López on 02 17 2024 at 1226, and has been read back. Mean Cell Volume 86.3 82.9 - 93.1 fL [facility] Mean Cell Hemoglobin 29.7 27.5 - 32.1 pg [facility] Mean Cell Hemoglobin Concentration 34.4 32.0 - 35.7 g/dL [facility] Platelet 118(L) 145 - 357 x10(3)/mc L [facility] RDW Standard Deviation 40.2 36.0 - 45.0 fL [facility] RDW coefficient of variation 12.8 11.4 - 13.8 % [facility] Mean Platelet Volume 9.5 7.6 - 12.9 fL [facility] NRBC% auto 0.0 % [facility] NRBC Absolute 0.000 0.000 - 0.000 x10(3)/mc L [facility] Blood 02/17/2024 12:1 0 PM EDT 02/17/2024 12:19 PM EDT Narrative Resulting Agency Comment Spec In Lab Tara York MD HEMATOLOGY ORDERABLE S [facility] [address] [place] [address] * (ABNORMAL) BLOOD GAS 2 ARTERIAL (02/17/2024 11:43 AM EDT) pH, Arterial 7.38 7.35 - 7.45 [facility] PCO2, Arterial 40 35 - 45 mmHg [facility] PO2, Arterial 304(H) 85 - 104 mmHg [facility] Bicarbonate, Arterial 23.2 20.0 - 26.0 mmol/L [facility] Base Excess, Arterial -1.9 -3.0 - 3.0 mmol/L [facility] Hgb Blood Gas 11.1(L) 13.7 - 16.5 g/dL [facility] Oxyhemoglobin, Arterial 98.6(H) 94.0 - 97.0 % [facility] Carboxyhemoglob in, Arterial 0.3 % [facility] Comment: Nonsmokers: 0.5-1.5% COHB Smokers: Variable, but usually less than 10% Toxic: 20-30% COHB Lethal: Greater than 60% COHB Methemoglobin, Arterial 0.3 <=1.5 % [facility] Na Whole Blood 133(L) 135 - 145 mmol/L [facility] K Whole Blood 6.2(Critic al) 3.5 - 5.0 mmol/L [facility] Comment: Noted by survey instrument operator. Please note: Patients with WBC >100,000 may have falsely elevated Potassium levels. Contact the Clinical Chemistry Laboratory if there are any questions. ICa Whole Blood 0.97(L) 1.15 - 1.33 mmol/L [facility] Comment: Note: ??Total bilirubin higher than 20 mg/dL may lead to falsely low ionized calcium. CL Whole Blood 104 98 - 107 mmol/L [facility] Gluc Whole Bld 128 65 - 199 mg/dL [facility] Comment:Diabetes: >=200 mg/d L plus symptoms. Lactate WB 1.1 0.5 - 2.2 mmol/L [facility] Blood 02/17/2024 11:4 3 AM EDT 02/17/2024 11:43 AM EDT Zak Graham MD POINT OF CARE TEST ORDERABLES [facility] [place] [address] * (ABNORMAL) BLOOD GAS 2 ARTERIAL (02/17/2024 11:08 AM EDT) pH, Arterial 7.38 7.35 - 7.45 [facility] PCO2, Arterial 38 35 - 45 mmHg [facility] PO2, Arterial 334(H) 85 - 104 mmHg [facility] Bicarbonate, Arterial 22.0 20.0 - 26.0 mmol/L [facility] Base Excess, Arterial -3.2(L) -3.0 - 3.0 mmol/L [facility] Hgb Blood Gas 10.8(L) 13.7 - 16.5 g/dL [facility] Oxyhemoglobin, Arterial 98.7(H) 94.0 - 97.0 % [facility] Carboxyhemoglob in, Arterial 0.3 % [facility] Comment: Nonsmokers: 0.5-1.5% COHB Smokers: Variable, but usually less than 10% Toxic: 20-30% COHB Lethal: Greater than 60% COHB Methemoglobin, Arterial 0.3 <=1.5 % [facility] Na Whole Blood 131(L) 135 - 145 mmol/L [facility] K Whole Blood 6.4(Critic al) 3.5 - 5.0 mmol/L [facility] Comment: Noted by survey instrument operator. Please note: Patients with WBC >100,000 may have falsely elevated Potassium levels. Contact the Clinical Chemistry Laboratory if there are any questions. ICa Whole Blood 0.98(L) 1.15 - 1.33 mmol/L [facility] Comment: Note: ??Total bilirubin higher than 20 mg/dL may lead to falsely low ionized calcium. CL Whole Blood 104 98 - 107 mmol/L [facility] Gluc Whole Bld 127 65 - 199 mg/dL [facility] Comment:Diabetes: >=200 mg/d L plus symptoms. Lactate WB 1.0 0.5 - 2.2 mmol/L [facility] Blood 02/17/2024 11:0 8 AM EDT 02/17/2024 11:08 AM EDT Zak Graham MD POINT OF CARE TEST ORDERABLES Performing Organization Address [facility] Co de Phone Number [facility] [place] [address] * (ABNORMAL) Hemoglobin and Hematocrit, blood (02/17/2024 11:04 AM EDT) Pathologist [facility] Hemoglobin 9.6(L) 13.7 - 16.5 g/dL [facility] Hematocrit 28.0(L) 40.5 - 48.5 % [facility] Comment: This result has been called to SILVIA PAGAN by Eddie López on 02 17 2024 at 1120, and has been read back. Blood 02/17/2024 11:0 4 AM EDT 02/17/2024 11:12 AM EDT Narrative Resulting Agency Comment Spec In Lab Zak Graham MD HEMATOLOGY ORDERABL ES Performing Organization Address [facility]/ZIP Co de Phone Number [facility] [place] [address] * (ABNORMAL) Platelet count (02/17/2024 11:04 AM EDT) Platelet 106(L) 145 - 357 x10(3)/mc L [facility] Immature Plt % 1.6 0.0 - 7.4 % [facility] Comment: Limitation of the Immature Platelet Fraction (IPF)-May be less reliable when the platelet count is less than 26q765/uL due to statistical imprecision. The IPF value [...] in a decreased state of production. References: [employer] The Clinical Value of the Immature Platelet Fraction (IPF) in Cell Recovery Document Number [id number] 03/2011 [employer] The Role of the Immature Platelet Fraction (IPF) in the Differential Diagnosis of Thrombocytopenia, Document [id number] V002/15/14 P002/17 Blood 02/17/2024 11:0 4 AM EDT 02/17/2024 11:12 AM EDT Narrative Resulting Agency Comment Spec In Lab Zak Graham MD HEMATOLOGY ORDERABL ES Performing Organization Address City/State/[facility] Co de Phone Number [facility] [place] [address] * (ABNORMAL) Fibrinogen (02/17/2024 11:04 AM EDT) Fibrinogen 149(L) 200 - 393 mg/dL [facility] Comment: OR Result called by ?? SALVLT OR Results read back by: ? Silvia Pagan at 2024-02-17 11:30:47 A fibrinogen level >100 mg/dL is adequate for hemostasis in most patients without underlying bleeding disorders. Blood 02/17/2024 11:0 4 AM EDT 02/17/2024 11:12 AM EDT Narrative Resulting Agency Comment Spec In Lab Zak Graham MD HEMATOLOGY ORDERABL ES [facility] [place] [address] * (ABNORMAL) BLOOD GAS 2 ARTERIAL (02/17/2024 10:41 AM EDT) pH, Arterial 7.37 7.35 - 7.45 [facility] PCO2, Arterial 44 35 - 45 mmHg [facility] PO2, Arterial 335(H) 85 - 104 mmHg [facility] Bicarbonate, Arterial 24.9 20.0 - 26.0 mmol/L [facility] Base Excess, Arterial -0.4 -3.0 - 3.0 mmol/L [facility] Hgb Blood Gas 11.5(L) 13.7 - 16.5 g/dL [facility] Oxyhemoglobin, Arterial 98.9(H) 94.0 - 97.0 % [facility] Carboxyhemoglob in, Arterial 0.1 % [facility] Comment: Nonsmokers: 0.5-1.5% COHB Smokers: Variable, but usually less than 10% Toxic: 20-30% COHB Lethal: Greater than 60% COHB Methemoglobin, Arterial 0.3 <=1.5 % [facility] Na Whole Blood 132(L) 135 - 145 mmol/L [facility] K Whole Blood 5.9(H) 3.5 - 5.0 mmol/L [facility] Comment: Please note: Patients with WBC >100,000 may have falsely elevated Potassium levels. Contact the Clinical Chemistry Laboratory if there are any questions. ICa Whole Blood 1.02(L) 1.15 - 1.33 mmol/L [facility] Comment: Note: ??Total bilirubin higher than 20 mg/dL may lead to falsely low ionized calcium. CL Whole Blood 104 98 - 107 mmol/L [facility] Gluc Whole Bld 129 65 - 199 mg/dL [facility] Comment:Diabetes: >=200 mg/d L plus symptoms. Lactate WB 1.1 0.5 - 2.2 mmol/L [facility] Blood 02/17/2024 10:4 1 AM EDT 02/17/2024 10:41 AM EDT Zak Graham MD POINT OF CARE TEST ORDERABLES [facility] [place] [address] * (ABNORMAL) BLOOD GAS 2 ARTERIAL (02/17/2024 10:06 AM EDT) pH, Arterial 7.38 7.35 - 7.45 [facility] PCO2, Arterial 42 35 - 45 mmHg [facility] PO2, Arterial 329(H) 85 - 104 mmHg [facility] Bicarbonate, Arterial 24.7 20.0 - 26.0 mmol/L [facility] Base Excess, Arterial -0.3 -3.0 - 3.0 mmol/L [facility] Hgb Blood Gas 11.0(L) 13.7 - 16.5 g/dL [facility] Oxyhemoglobin, Arterial 99.0(H) 94.0 - 97.0 % [facility] Carboxyhemoglob in, Arterial 0.3 % [facility] Comment: Nonsmokers: 0.5-1.5% COHB Smokers: Variable, but usually less than 10% Toxic: 20-30% COHB Lethal: Greater than 60% COHB Methemoglobin, Arterial 0.3 <=1.5 % [facility] Na Whole Blood 132(L) 135 - 145 mmol/L [facility] K Whole Blood 6.0(H) 3.5 - 5.0 mmol/L [facility] Comment: Please note: Patients with WBC >100,000 may have falsely elevated Potassium levels. Contact the Clinical Chemistry Laboratory if there are any questions. ICa Whole Blood 0.97(L) 1.15 - 1.33 mmol/L [facility] Comment: Note: ??Total bilirubin higher than 20 mg/dL may lead to falsely low ionized calcium. CL Whole Blood 102 98 - 107 mmol/L [facility] Gluc Whole Bld 123 65 - 199 mg/dL [facility] Comment:Diabetes: >=200 mg/d L plus symptoms. Lactate WB 1.1 0.5 - 2.2 mmol/L [facility] Blood 02/17/2024 10:0 6 AM EDT 02/17/2024 10:06 AM EDT Zak Graham MD POINT OF CARE TEST ORDERABLES [facility] [place] [address] * Surgical Pathology Report (02/17/2024 10:01 AM EDT) Final Diagnosis [id number] ? Location: [facility]; [facility]; The signing pathologist has (i) examined the relevant preparation(s) for the specimen(s) and (ii) rendered or confirmed the diagnosis(es). . ?Surgical Pathology DIAGNOSIS Aortic valve leaflets, excision: Valve leaflets with myxoid degeneration, nodular fibrosis and dystrophic calcifications. Electronically signed by: ?Lindsay FERNANDEZ, Livier Gonzalez Verified: ??02/24/2024 13:49 ??Pathologist Performed at: ??[place] [place], [place] [address] Stock Car Driver: Job Brewer MD, FCAP, ??CLIA Certificate: [id number] SPECIMEN(S) SUBMITTED A - Aortic Valve Leaflets, [...] Sections Processing Blocks submitted for decalcification: A1. Warp Starter sections in 1 cassette labeled A1. ??ajw 02/24/2024 1:49 PM EDT [facility] AORTIC STRUCTURE / Unknown 02/17/2024 10:01 AM EDT 02/17/2024 10:01 AM EDT Zak Graham MD PATHOLOGY/CYTOLOGY ORDERABLES Performing Organization Address City/[facility]/ZIP Co de Phone Number [facility] [place] [address] * Specimen to Pathology (02/17/2024 10:01 AM EDT) AP Specimen 02/17/2024 10:0 1 AM EDT 02/17/2024 10:01 AM EDT Narrative [facility] - 02/17/2024 10:01 AM EDT Specimen requisition ordered. ??Separate Pathology report to follow Zak Graham MD PATHOLOGY/CYTOLOGY ORDERABLES Performing Organization Address City/[facility]/ZIP Co de Phone Number [facility] [place] [address] * (ABNORMAL) BLOOD GAS 2 ARTERIAL (02/17/2024 9:35 AM EDT) pH, Arterial 7.33(L) 7.35 - 7.45 [facility] PCO2, Arterial 35 35 - 45 mmHg [facility] PO2, Arterial 318(H) 85 - 104 mmHg [facility] Bicarbonate, Arterial 17.9(L) 20.0 - 26.0 mmol/L [facility] Base Excess, Arterial -8.0(L) -3.0 - 3.0 mmol/L [facility] Hgb Blood Gas 11.0(L) 13.7 - 16.5 g/dL [facility] Oxyhemoglobin, Arterial 98.8(H) 94.0 - 97.0 % [facility] Carboxyhemoglob in, Arterial 0.3 % [facility] Comment: Nonsmokers: 0.5-1.5% COHB Smokers: Variable, but usually less than 10% Toxic: 20-30% COHB Lethal: Greater than 60% COHB Methemoglobin, Arterial 0.3 <=1.5 % [facility] Na Whole Blood 131(L) 135 - 145 mmol/L [facility] K Whole Blood 5.8(H) 3.5 - 5.0 mmol/L [facility] Comment: Please note: Patients with WBC >100,000 may have falsely elevated Potassium levels. Contact the Clinical Chemistry Laboratory if there are any questions. ICa Whole Blood 0.98(L) 1.15 - 1.33 mmol/L [facility] Comment: Note: ??Total bilirubin higher than 20 mg/dL may lead to falsely low ionized calcium. CL Whole Blood 101 98 - 107 mmol/L [facility] Gluc Whole Bld 122 65 - 199 mg/dL [facility] Comment:Diabetes: >=200 mg/d L plus symptoms. Lactate WB 0.8 0.5 - 2.2 mmol/L [facility] Blood 02/17/2024 9:35 AM EDT 02/17/2024 9:35 AM EDT Zak Graham MD POINT OF CARE TEST ORDERABLES [facility] [place] [address] * (ABNORMAL) BLOOD GAS 2 VENOUS (02/17/2024 9:34 AM EDT) pH, Venous 7.22(Criti marquez) 7.32 - 7.42 [facility] Comment:Noted by survey instrument operator. PCO2, Venous 43 41 - 51 mmHg [facility] Comment:Noted by survey instrument operator. PO2, Venous 57(H) 25 - 40 mmHg [facility] Comment:Noted by survey instrument operator. Bicarbonate, Venous 17.1 mmol/L [facility] Comment:Noted by survey instrument operator. Base Excess, Venous -10.6 mmol/L [facility] Comment:Noted by survey instrument operator. Hgb Blood Gas 11.2(L) 13.7 - 16.5 g/dL [facility] Comment:Noted by survey instrument operator. Oxyhemoglobin, Venous 86.5 % [facility] Comment:Noted by survey instrument operator. Carboxyhemoglob in, Venous 0.3 % [facility] Comment: Noted by survey instrument operator. Nonsmokers: 0.5-1.5% COHB Smokers: Variable, but usually less than 10% Toxic: 20-30% COHB Lethal: Greater than 60% COHB Methemoglobin, Venous 0.0 <=1.5 % [facility] Comment:Noted by survey instrument operator. Na Whole Blood 156(H) 135 - 145 mmol/L [facility] Comment:Noted by survey instrument operator. K Whole Blood 5.5(H) 3.5 - 5.0 mmol/L [facility] Comment: Noted by survey instrument operator. Please note: Patients with WBC >100,000 may have falsely elevated Potassium levels. Contact the Clinical Chemistry Laboratory if there are any questions. ICa Whole Blood 1.03(L) 1.15 - 1.33 mmol/L [facility] Comment: Noted by survey instrument operator. Note: ??Total bilirubin higher than 20 mg/dL may lead to falsely low ionized calcium. CL Whole Blood 100 98 - 107 mmol/L [facility] Comment:Noted by survey instrument operator. Gluc Whole Bld 132 65 - 199 mg/dL [facility] Comment: Noted by survey instrument operator. Diabetes: >=200 mg/dL plus symptoms Lactate WB 1.0 0.5 - 2.2 mmol/L [facility] Comment:Noted by survey instrument operator. Blood Gas Source Venous [facility] Blood 02/17/2024 9:34 AM EDT 02/17/2024 9:34 AM EDT Zak Graham MD POINT OF CARE TEST ORDERABLES [facility] [place] [address] * (ABNORMAL) BLOOD GAS 2 ARTERIAL (02/17/2024 8:07 AM EDT) pH, Arterial 7.43 7.35 - 7.45 [facility] PCO2, Arterial 34(L) 35 - 45 mmHg [facility] PO2, Arterial 581(H) 85 - 104 mmHg [facility] Bicarbonate, Arterial 21.7 20.0 - 26.0 mmol/L [facility] Base Excess, Arterial -2.6 -3.0 - 3.0 mmol/L [facility] Hgb Blood Gas 14.5 13.7 - 16.5 g/dL [facility] Oxyhemoglobin, Arterial 99.0(H) 94.0 - 97.0 % [facility] Carboxyhemoglob in, Arterial 0.4 % [facility] Comment: Nonsmokers: 0.5-1.5% COHB Smokers: Variable, but usually less than 10% Toxic: 20-30% COHB Lethal: Greater than 60% COHB Methemoglobin, Arterial 0.3 <=1.5 % [facility] Na Whole Blood 139 135 - 145 mmol/L [facility] K Whole Blood 4.0 3.5 - 5.0 mmol/L [facility] Comment: Please note: Patients with WBC >100,000 may have falsely elevated Potassium levels. Contact the Clinical Chemistry Laboratory if there are any questions. ICa Whole Blood 1.09(L) 1.15 - 1.33 mmol/L [facility] Comment: Note: ??Total bilirubin higher than 20 mg/dL may lead to falsely low ionized calcium. CL Whole Blood 106 98 - 107 mmol/L [facility] Gluc Whole Bld 100 65 - 199 mg/dL [facility] Comment:Diabetes: >=200 mg/d L plus symptoms. Lactate WB 1.3 0.5 - 2.2 mmol/L [facility] Blood 02/17/2024 8:07 AM EDT 02/17/2024 8:07 AM EDT Zak Graham MD POINT OF CARE TEST ORDERABLES Performing Organization Address [facility]/ZIP Co de Phone Number [facility] [place] [address] * POCT Glucose (02/17/2024 6:38 AM EDT) Glucose, POC 98 65 - 199 mg/dL [facility] Comment: Supplemental ranges: <140 mg/dL before meals <180 mg/dL all other times of the day Blood 02/17/2024 6:38 AM EDT 02/17/2024 6:38 AM EDT Zak Graham MD POINT OF CARE TEST ORDERABLES Performing Organization Address [facility] Co de Phone Number [facility] [place] [address] * Transesophageal Echo/OR (02/17/2024 6:33 AM EDT) [...] 6 hours upon arrival to Unit. Give MO if unable to take PO, Routine Given [...] dose on Sat02/17/24 at 1400, Until Discontinued, Garrard teeth and / or gums. Scan the CHG vial in the [employer] Q-Care Oral Care Kit from floor stock. Ventilator-associated pneumonia prophylaxis For use in ICU/Critical care locations ONLY. Obtain kit from Floor Stock location. Scan CHG vial in the [employer] Q-Care Oral Care Kit, Routine Given 02/17/2024 [...] restart at 50% of previous rate. Call house wirer helper if goal not achieved at maximum [...] PHENYLephrine and/or vasopressin ineffective. Call pager # [phone] if initiated. Titrate to keep systolic blood [...] 2.0 L/min/M2. Maximum volume 2 L. Call house wirer helper for additional fluid orders: pager #[phone]. Rate/Dose Verify 02/18/2024 8:00 AM EDT 1 mL/hr 1 mL/hr Rate/Dose Verify 02/18/2024 6:00 AM EDT 1 mL/hr 1 mL/hr Rate/Dose Verify 02/18/2024 4:00 AM EDT 1 mL/hr 1 mL/hr sodium chloride 0.9% infusion 10-30 mL/hr, Intravenous, DAILY PRN, Starting on Sat02/17/24 at 1307, Until Sat02/18/24 at 0835, Side port TKO rate, per [facility] nursing protocol. Rate/Dose Verify 02/17/2024 8:00 PM EDT 30 mL/hr 30 mL/hr Rate/Dose Verify 02/17/2024 6:00 PM EDT 30 mL/hr 30 mL/h r Rate/Dose Verify 02/17/2024 5:00 PM EDT 30 mL/hr 30 mL/h r sodium chloride 0.9% infusion 10-30 mL/hr, Intravenous, DAILY PRN, Starting on Sat02/17/24 at 1307, Until Sat02/18/24 at 0835, Side port TKO rate, per [facility] nrusing protocol. Rate/Dose Verify 02/18/2024 8:00 [...] Routine documented in this encounter Care Teams Dexigraph Operator Relationship Specialty Start Date End Date Aparna Jordan APRN PCP - General Family Medicine 10/21/23 documented as of this encounter
--- OUTSIDE RECORDS SUMMARY | 2024-05-15 07:58 | XMS_ITS | Encounter Summary ---
Author Organization [facility] Address [facility] [place] [address] Care Team Providers Care Family Psychologist Name Role Phone Vanessa Christian FISH TECHNOLOGIST Primary Care Provider [phone] Reason for Referral * Diagnostic Test (Routine) - Closed Specialty Diagnoses / Procedures Referred By Contac t Referred To Contact Radiology Diagnoses Nonrheumatic aortic valve stenosis Procedures CT Chest wo Contrast (Generic) Louisa Reid PA [facility] [place] [address] [facility] [place] [address] Referral ID Status Reason Start Date Expiration Date V isits Requested Visits Authorized [id number] Closed Specialty Service Requested 01/10/2024 07/11/2025 1 1 Encounter Details Date Type Department Care Team (Late st Contact Info) Description 01/09/2024 [place] [address] Zak Farmer MD [facility] [place] [address] Nonrheumatic aortic valve stenosis Social History Tobacco [...] 11:00 AM EDT Office Visit Cardiology at [address] [place] [address] Neftali Ernandez MD [facility] [place] [address] documented as of this encounter Results * CT Chest wo Contrast (Generic) (02/03/2024 7:44 AM EDT) [employer] WORKSTATION ID [id number] RAD Anatomical Region Laterality Modality Chest Computed [...] have questions please contact the health care clinician that requested your imaging first. ? Electronically signed by: Rogerio Wright MD, [facility] ([phone]), at 02/03/2024 10:00 AM Narrative 02/03/2024 10:00 [...] nodule along the minor fissure (series [id number]) and a 8 mm right lower lobe [...] who have questions please contactthe health care clinician that requested your imaging first. Electronically signed by: Rogerio Wright MD, [facility]([phone]), at 02/03/2024 10:00 AM Zak Farmer MD IMG CT ORDERABLES documented in this encounter Visit Diagnoses Diagnosis Nonrheumatic aortic valve stenosis Aortic valve disorders Nonrheumatic aortic valve stenosis Aortic valve disorders documented in this encounter Care Teams Family Psychologist Relationship Specialty Start Date End Date Vanessa Christian APRN PCP - General Family Medicine 10/21/23 documented as of this encounter
--- OUTSIDE RECORDS SUMMARY | 2024-05-15 07:58 | XMS_ITS | Encounter Summary ---
Author Organization [facility]ana [facility] [place] [address] Care Team Providers Care Lidar Scientist Name Role Phone Vanessa Christian MAURI Primary Care Provider [phone] Reason for Visit * Auth/Cert (Routine) Specialty [...] ARTERIAL GRAFT (WRVU 7.93) Zak Farmer MD [facility] [place] [address] [facility] Referral ID Status Reason Start Date Expiration Date Visits Re quested Visits Authorized [id number] 1 1 Encounter Details Date Type Department Care Team (Late st Contact Info) Description 02/17/2024 7:35 AM EDT Anesthesia Event Main Operating Room [facility] [place] [phone] Roman York MD [facility] [place] [address] Anesthesia Record Procedure Summary Procedure Name Responsible [...] by Sadiq Woo RN PIV 02/17/24; 0715; [id number] catheter system; 18 gauge; cephalic vein (lateral [...] oz pur e alcohol) rare [facility] Utilities Answer Date Recorded In the past 12 months has th e electric, gas, oil, or water documistic threatened to shut off services in your [...] Procedure Summary Date: 02/17/24 Room / Location: [facility] OR [address] [place] [address] MAIN OR Anesthesia Start: 734 Anesthesia Stop: [...] shown include unfiled device data. Patient Location: [facility] Level of Consciousness: Sedated (Pharmacologic/Intentional) Pain Management: [...] 08/14/2023 ??? Nevus of face 09/26/2023 Right lutheran No past surgical history on file. Social [...] AM EDT Office Visit Cardiology at [address] [place] [address] Neftali Ernandez MD [facility] [address] documented as of this encounter Visit [...] mg documented in this encounter Care Teams Lidar Scientist Relationship Specialty Start Date End Date Vanessa Christian APRN PCP - General Family Medicine 10/21/23 documented as of this encounter
--- OUTSIDE RECORDS SUMMARY | 2024-05-15 07:58 | XMS_ITS | Encounter Summary ---
Author Organization [facility] [place] [address] Care Team Providers Care Shorthand Reporter Name Role Phone Vanessa Christian APRN Primary Care Provider [phone] Encounter Details Date Type Department Care Team [...] AM EDT Office Visit Cardiology at [address] [place] [phone] Neftali Ernandez MD [facility] [place] [address] documented as of this encounter Visit Diagnoses Not on filedocumented in this encounter Care Teams Shorthand Reporter Relationship Specialty Start Date End Date Vanessa Christian APRN PCP - General Family Medicine 10/21/23 documented as of this encounter
--- OUTSIDE RECORDS SUMMARY | 2024-05-15 07:58 | XMS_ITS | Encounter Summary ---
Author Organization Replaced By [facility] Address [facility] [place] [address] Care Team Providers Care Resin Mixer Name Role Phone Vanessa Christian APRN Primary Care Provider [phone] Encounter Details Date Type Department Care Team [...] 11:00 AM EDT Office Visit Cardiology at [address] [place] [address] Neftali Ernandez MD [facility] [place] [address] documented as of this encounter Visit Diagnoses Not on filedocumented in this encounter Care Teams Resin Mixer Relationship Specialty Start Date End Date Vanessa Christian APRN PCP - General Family Medicine 10/21/23 documented as of this encounter
--- OUTSIDE RECORDS SUMMARY | 2024-05-15 07:58 | XMS_ITS | Encounter Summary ---
Author Organization [facility] [place] [address] Care Team Providers Care Cable Maintainer Name Role Phone Vanessa Christian Lane DOTSON Primary Care Provider [phone] Reason for Referral * Diagnostic Test (Routine) - Closed Specialty Diagnoses / Procedures Referred By Contac t Referred To Contact Radiology Diagnoses Nonrheumatic aortic valve stenosis Procedures CT Chest wo Contrast (Generic) Louisa Cho PA [facility] [place] [address] [facility] [place] [address] Referral ID Status Reason Start Date Expiration Date V isits Requested Visits Authorized [id number] Closed Specialty Service Requested 01/10/2024 07/11/2025 1 1 Reason for Visit * Diagnostic Test (Routine) - Closed Specialty Diagnoses / Procedures Referred By Contac t Referred To Contact Radiology Diagnoses Nonrheumatic aortic valve stenosis Procedures CT Chest wo Contrast (Generic) Louisa Cho PA [facility] [place] [address] [facility] [place] [address] Referral ID Status Reason Start Date Expiration Date V isits Requested Visits Authorized [id number] Closed Specialty Service Requested 01/10/2024 07/11/2025 1 1 Encounter Details Date Type Department Care Team (Latest Contact Info) Description 02/03/2024 7:36 AM EDT - 02/03/2024 8:05 AM EDT Hospital [place] [address] Zak Farmer MD [facility] [place] [address] Nonrheumatic aortic valve stenosis Discharge Disposition: Home Social History Tobacco Use Types Packs/Day Years Used Date Smoking Tobacco: Former Cigarettes Smokeless Tobacco: Never Comments:Quit 15 + years ago Alcohol Use Standard Drinks/Week Comments Yes 0 (1 standard drink = 0.6 oz pur e alcohol) rare [facility] Inpatient Questions Answer Date Recorded Does [...] 11:00 AM EDT Office Visit Cardiology at [address] [place] [address] Neftali Ernandez MD [facility] [place] [address] documented as of this encounter Procedures Procedure Name Priority Date/Time Associated Diagnosis Comments CT CHEST WO CONTRAST (GENERIC) Routine 02/03/2024 7:44 AM EDT Nonrheumatic aortic valve stenosis documented in this encounter Results * CT Chest wo Contrast (Generic) (02/03/2024 7:44 AM EDT) [employer] Signature WORKSTATION ID [id number] RAD Anatomical Region Laterality Modality Chest Computed [...] who have questions please contact the health cattle care worker that requested your imaging first. ? Electronically signed by: Rogerio Wright MD, [facility] ([phone]), at 02/03/2024 10:00 AM Narrative 02/03/2024 10:00 [...] nodule along the minor fissure (series 302 [id number]) and a 8 mm right lower lobe [...] patients who have questions please contactthe health cattle care worker that requested your imaging first. Electronically signed by: Rogerio Wright MD, [facility]([phone]), at 02/03/2024 10:00 AM Zak Farmer MD IMG CT ORDERABLES documented in this encounter Visit Diagnoses Diagnosis Nonrheumatic aortic valve stenosis Aortic valve disorders documented in this encounter Care Teams Cable Maintainer Relationship Specialty Start Date End Date Vanessa Christian APRN PCP - General Family Medicine 10/21/23 documented as of this encounter
--- OUTSIDE RECORDS SUMMARY | 2024-05-15 07:58 | XMS_ITS | Encounter Summary ---
Author Organization [facility] [place] [address] Care Team Providers Care General Cleaner Name Role Phone Vanessa Christian MAURI Primary Care Provider [phone] Encounter Details Date Type Department Care Team (Latest Contact Info) Description 01/09/2024 3:00 PM EDT Laboratory [place] [phone] Nonrheumatic aortic valve stenosis Social History Tobacco Use Types Packs/Day Years Used Date Smoking Tobacco: Former Cigarettes Smokeless Tobacco: Never Comments:Quit 15 + years ago Alcohol Use Standard Drinks/Week Comments Yes 0 (1 standard drink = 0.6 oz pur e alcohol) rare [facility] Inpatient Questions Answer Date Recorded Prevent Contact [...] 11:00 AM EDT Office Visit Cardiology at [address] [phone] Neftali Ernandez MD [facility] [place] [address] documented as of this encounter Procedures Procedure Name Priority Date/Time Associated Diagnosis Comments ABORH RECHECK STATUS Routine 01/09/2024 2:58 PM EDT HEMOGRAM Routine 01/09/2024 2:58 PM EDT Nonrheumatic aortic valve stenosis DIFFERENTIAL, AUTOMATED Routine 01/09/2024 2:58 PM EDT Nonrheumatic aortic valve stenosis TYPE AND SCREEN, SDP (FUTURE SURGERY, [facility] SAME DAY PROGRAM [...] PM EDT) ABORH Recheck Order Order Placed [facility] ABORH Type Recheck Completed [facility] Blood 01/09/2024 2:58 PM EDT 01/09/2024 3:08 PM EDT Narrative Resulting Agency Comment Spec In Lab Zak Farmer MD BLOOD BANK LAB CECILIO ALEMAN [facility] [place] [address] * Differential, Automated (01/09/2024 2:58 PM EDT) Neutrophil % 70.5 % [facility] Neutrophil Absolute 4.34 1.70 - 6.10 x10(3)/[facility] Lymph % 18.9 % [facility] Lymphocytes Abs 1.2 0.9 - 3.2 x10(3)/[facility] Monocyte % 8.0 % [facility] Monocyte Abs 0.5 0.3 - 0.9 x10(3)/[facility] Eos % 1.6 % [facility] Eosinophils Abs 0.1 0.0 - 0.4 x10(3)/[facility] Basophil % 0.5 % [facility] Baso Absolute 0.0 0.0 - 0.1 x10(3)/[facility] Immature Gran % 0.50 % [facility] Comment: Immature granulocytes(IG's)percentage and absolute count will include metamyelocytes, myelocytes, and promyelocytes. Blood smears from CBCs yielding IG's will be scanned manually for concordance. If this scan disagrees with the automated IG or if promyelocytes are noted, a manual differential will be performed. Immature Gran Absolute 0.03 0.00 - 0.04 x10(3)/[facility] Blood 01/09/2024 2:58 PM EDT 01/09/2024 3:03 PM EDT Narrative Resulting Agency Comment Spec In Lab Zak Farmer MD HEMATOLOGY ORDERABL ES [facility] [place] [place] [address] * Hemogram (01/09/2024 2:58 PM EDT) White Blood Cell 6.2 4.0 - 9.5 x10(3)/[facility] Red Blood Cell 5.53 4.58 - 5.54 x10(6)/[facility] Hemoglobin 16.1 13.7 - 16.5 g/dL [facility] Hematocrit 46.9 40.5 - 48.5 % [facility] Mean Cell Volume 84.8 82.9 - 93.1 fL [facility] Mean Cell Hemoglobin 29.1 27.5 - 32.1 pg [facility] Mean Cell Hemoglobin Concentration 34.3 32.0 - 35.7 g/dL [facility] Platelet 187 145 - 357 x10(3)/[facility] RDW Standard Deviation 39.2 36.0 - 45.0 fL [facility] RDW coefficient of variation 12.6 11.4 - 13.8 % [facility] Mean Platelet Volume 9.5 7.6 - 12.9 fL [facility] NRBC% auto 0.0 % [facility] NRBC Absolute 0.000 0.000 - 0.000 x10(3)/[facility] Blood 01/09/2024 2:58 PM EDT 01/09/2024 3:03 PM EDT Narrative Resulting Agency Comment Spec In Lab Zak Farmer MD HEMATOLOGY ORDERABL ES [facility] [place] [address] * Basic Metabolic Panel (non-fasting) (01/09/2024 2:58 PM EDT) Glucose 102 65 - 199 mg/dL [facility] Comment:Diabetes: >=200 mg/d L plus symptoms Blood Urea Nitrogen 15 10 - 20 mg/dL [facility] Creatinine 0.94 0.80 - 1.50 mg/dL [facility] Sodium 137 135 - 145 mmol/L [facility] Potassium 4.5 3.5 - 5.0 mmol/L [facility] Comment: Please note: ??Patients with WBC >100,000 may have falsely elevated Potassium levels. ??For accurate Potassium quantification in these patients send serum separator tube (gold top) for subsequent determinations. ??Contact the Clinical Chemistry Laboratory if there are any questions. Chloride 103 98 - 107 mmol/L [facility] Carbon Dioxide 27 22 - 31 mmol/L [facility] Anion Gap 7 5 - 15 mmol/L [facility] Calcium 9.5 8.5 - 10.5 mg/dL [facility] Est Glomerular Filtration Rate 91 >=60 mL/min/1. 73 m?? [facility] Comment: This patient's estimated [...] Lab Zak Farmer MD CHEMISTRY ORDERABLE S [facility] [place] [address] * Hepatic Function Panel (01/09/2024 2:58 PM EDT) Protein, Total 6.7 6.1 - 8.0 g/dL [facility] Albumin 4.5 3.2 - 5.2 g/dL [facility] Aspartate Aminotransferase 21 0 - 39 unit/L [facility] Alanine Aminotransferase 21 0 - 55 unit/L [facility] Alkaline Phosphatase 81 40 - 130 unit/L [facility] Bilirubin, Total 0.7 0.2 - 1.3 mg/dL [facility] Bilirubin, Direct 0.2 0.0 - 0.3 mg/dL [facility] Blood 01/09/2024 2:58 PM EDT 01/09/2024 3:03 PM EDT Narrative Resulting Agency Comment Spec In Lab Zak Farmer MD CHEMISTRY ORDERABLE S Performing Organization Address [facility] Co de Phone Number [facility] [place] [address] * Prothrombin Time (01/09/2024 2:58 PM EDT) Prothrombin Time 10.6 9.4 - 12.5 sec [facility] International Normalization Ratio 0.9 [facility] Comment: An INR <2.0 [...] Organization Address [facility] Co de Phone Number [facility] [place] [place] [address] * Type and Screen Future Surgery, [facility] SAME DAY PROGRAM ONLY) (01/09/2024 2:58 PM EDT) Pathologist [facility] ABORH Type O NEGATIVE [facility] Patient BB History Not Found [facility] Expires at [phone] on: 02-20-2024 [facility] Ab Screen Interp Negative [facility] Blood 01/09/2024 2:58 PM EDT 01/09/2024 2:58 PM EDT Narrative Resulting Agency Comment Spec In Lab Zak Farmer MD BLOOD BANK LAB ORDE RABLES Performing Organization Address City/[facility]/ZIP Co de Phone Number [facility] [place] [address] documented in this encounter Visit Diagnoses Diagnosis Nonrheumatic aortic valve stenosis Aortic valve disorders documented in this encounter Care Teams General Cleaner Relationship Specialty Start Date End Date Vanessa Christian APRN PCP - General Family Medicine 10/21/23 documented as of this encounter
--- OUTSIDE RECORDS SUMMARY | 2024-05-15 07:58 | XMS_ITS | Encounter Summary ---
Author Organization [facility] [place] [address] Care Team Providers Care Regional Trainer Name Role Phone Vanessa Christian Lane DOTSON Primary Care Provider [phone] Encounter Details Date Type Department Care Team (Late st Contact Info) Description 01/09/2024 2:30 PM EDT Clinical Support Same Day at [facility] [place] [phone] Social History Tobacco Use Types Packs/Day Years Used Date Smoking Tobacco: Former Cigarettes Smokeless Tobacco: Never Comments:Quit 15 + years ago Alcohol Use Standard Drinks/Week Comments Yes 0 (1 standard drink = 0.6 oz pur e alcohol) rare [facility] Inpatient Questions Answer Date Recorded Prevent Contact [...] you tube link for a video about [facility] cardiac surgery. Instructed to bring the booklet [...] type and screen performed while in the [facility]. Sent to Radiology for chest x-ray. Special medication instructions: None Procedure date: not booked. Darian documented in this encounter Plan of Treatment Upcoming Encounters Date Type Department Care Team (Late st Contact Info) Description 05/27/2024 11:00 AM EDT Office Visit Cardiology at [address] [place] [phone] Neftali Ernandez MD [facility] [place] [address] documented as of this encounter Visit Diagnoses Not on filedocumented in this encounter Care Teams Regional Trainer Relationship Specialty Start Date End Date Vanessa Christian APRN PCP - General Family Medicine 10/21/23 documented as of this encounter
--- OUTSIDE RECORDS SUMMARY | 2024-05-15 07:58 | XMS_ITS | Encounter Summary ---
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 ( defers to Card Surg d/t age) Neftali Ernandez MD [facility] [place] [address] Zak Farmer MD [facility] [place] [address] Referral ID Status Reason Start Date Expiration Date V isits Requested Visits Authorized [id number] Closed Consult, Test & Treat 10/21/2023 10/20/2024 1 1 Encounter Details Date Type Department Care Team (Late st Contact Info) Description 01/09/2024 1:40 PM EDT Office [place] [address] Zak Farmer MD [facility] [place] [address] Nonrheumatic aortic valve stenosis Social [...] office. Best personal regards, Zak Farmer MD [phone] In aggregate 55 minutes were spent evaluating [...] 11:00 AM EDT Office Visit Cardiology at [address] [place] [phone] Neftali Ernandez MD [facility] [place] [address] documented as of this encounter Results * [...] who have questions please contact the health managed care manager that requested your imaging first. [...] patients who have questions please contactthe health managed care manager that requested your imaging first. Zak Farmer MD IMG DX ORDERABLES * Basic Metabolic Panel (non-fasting) (01/09/2024 2:58 PM EDT) Glucose 102 65 - 199 mg/dL [facility] Comment:Diabetes: >=200 mg/d L plus symptoms Blood Urea Nitrogen 15 10 - 20 mg/dL [facility] Creatinine 0.94 0.80 - 1.50 mg/dL [facility] Sodium 137 135 - 145 mmol/L [facility] Potassium 4.5 3.5 - 5.0 mmol/L [facility] Comment: Please note: ??Patients with WBC >100,000 may have falsely elevated Potassium levels. ??For accurate Potassium quantification in these patients send serum separator tube (gold top) for subsequent determinations. ??Contact the Clinical Chemistry Laboratory if there are any questions. Chloride 103 98 - 107 mmol/L [facility] Carbon Dioxide 27 22 - 31 mmol/L [facility] Anion Gap 7 5 - 15 mmol/L [facility] Calcium 9.5 8.5 - 10.5 mg/dL [facility] Est Glomerular Filtration Rate 91 >=60 mL/min/1. 73 m?? [facility] [...] CHEMISTRY ORDERABLE S [facility] [place] [address] * Hepatic Function Panel (01/09/2024 2:58 PM EDT) Pathologist [facility] Protein, Total 6.7 6.1 - 8.0 g/dL [facility] Albumin 4.5 3.2 - 5.2 g/dL [facility] Aspartate Aminotransferase 21 0 - 39 unit/L [facility] Alanine Aminotransferase 21 0 - 55 unit/L [facility] Alkaline Phosphatase 81 40 - 130 unit/L [facility] Bilirubin, Total 0.7 0.2 - 1.3 mg/dL [facility] Bilirubin, Direct 0.2 0.0 - 0.3 mg/dL [facility] Blood 01/09/2024 2:58 PM EDT 01/09/2024 3:03 PM EDT Narrative Resulting Agency Comment Spec In Lab Zak Farmer MD CHEMISTRY ORDERABLE S Performing Organization Address [facility] Co de Phone Number [facility] [place] [address] * Prothrombin Time (01/09/2024 2:58 PM EDT) [facility] Prothrombin Time 10.6 9.4 - 12.5 sec [facility] International Normalization Ratio 0.9 [facility] Comment: An INR <2.0 indicates [...] Address City/[facility]/ZIP Co de Phone Number [facility] [place] [address] * Type and Screen Future Surgery, [facility] [place] ONLY) (01/09/2024 2:58 PM EDT) ABORH Type O NEGATIVE [facility] Patient BB History Not Found [facility] Expires at [phone] on: 02-20-2024 [facility] Ab Screen Interp Negative [facility] Blood 01/09/2024 2:58 PM EDT 01/09/2024 2:58 PM EDT Narrative Resulting Agency Comment Spec In Lab Zak Farmer MD BLOOD BANK LAB [facility] Organization Address City/State/ZIP Co de Phone Number [facility] [place] [address] documented in this encounter Visit Diagnoses Diagnosis Nonrheumatic aortic valve stenosis Aortic valve disorders Nonrheumatic aortic valve stenosis Aortic valve disorders documented in this encounter Care Teams Aerodynamic Consultant Relationship Specialty Start Date End Date Vanessa Christian APRN PCP - General Family Medicine 10/21/23 documented as of this encounter
--- OUTSIDE RECORDS SUMMARY | 2024-05-15 07:58 | XMS_ITS | Encounter Summary ---
Author Organization Formerly [facility] [place] [address] Care Team Providers Care Carpet Renovator Name Role Phone Vanesas Christian MAURI Primary Care Provider Reason for Visit * Auth/Cert (Routine) Specialty [...] W RHC (WRVU 5.9) Rima Dickinson MD [facility] [place] [address] [facility] Referral ID Status Reason Start Date Expiration Date Visits Re quested Visits Authorized [id number] 1 1 Encounter Details Date Type Department Care Team (Latest Contact Info) Description 02/03/2024 8:06 AM EDT - 02/03/2024 2:54 PM EDT Hospital [place] [address] Rima Dickinson MD [facility] [place] [address] Screening for cardiovascular condition; Aortic valve stenosis, [...] lbs Follow-up Visits Follow up with your canvas worker apprentice in 2-4 weeks Access Site 'Black and Blue' and tenderness is expected during the first week Call if you noted a mass (lump) greater than the size of a ellis Call Office with any Questions and if you have any of the following Clarence Lane M.D Interventional Rig Manager Cigarette Machine Operator #: [phone] * Attachments The following attachments cannot be sent through Care Everywhere. * CAD (Coronary Artery Disease): General Info (Bahamian) * Coronary Angiogram: Post-op (Bahamian) documented in this encounter Medications at Time [...] MD - 02/03/2024 11:48 AM EDT [facility] Interventional Cardiology Adult Pre-Procedure H&P Update: Cardiac Catheterization Karlos Anthony [id number] 1960 Chief Complaint: Aortic stenosis HPI: Mr. [...] is inthe chart Clarence Lane MD Interventional Rig Manager 02/03/24 11:48 AM documented in this encounter Miscellaneous Notes * Brief Op Note - Clarence Lane MD - 02/03/2024 12:51 PM EDT Preliminary Cardiac Catheterization Procedure Note: Patient Name: Karlos Anthony : [id number] MR#: [id number] Case Date: 02/03/2024 Cigarette Machine Operator: Surgeon(s) and Role: * Saira Lua MD [...] AM EDT Office Visit Cardiology at [address] [place] [address] Neftali Ernandez MD [facility] [place] [address] Scheduled Orders Name Type Priority Associated Diagnoses [...] Modality Other Narrative 02/12/2024 3:47 PM EDT ?[facility] ? Cardiac Catheterization/Intervention Report ? Patient Name: Karlos Anthony ? Procedure Date: 02/03/2024 ? A #: [id number] ? Primary Physician: Saira Lua ? Case #: [id number] ? File Name: [id number] ? Catheterization Order Number: [id number] ? [facility] ? Final Report [place], [place] ? Patient Name: ? Karlos Patenaude ? ID#: ?[id number] ? : ?1960 ? Procedure Date: ? [...] nurse. ??Case time = 00:18. ?Dr. Saira Lau M.D. performed the coronary angiography. ? Saira Lua M.D. ? Electronically Signed by: Saira Lua M.D. ? Report Finalized: 02/12/2024 ??15:43 ? Procedure Note Saira Lua MD - 02/12/2024 [facility] Cardiac Catheterization/Intervention Report Patient Name: Karlos Anthony Procedure Date: 02/03/2024 A #: [id number] Primary Physician: Saira Lua Case #: [id number] File Name: [id number] Catheterization Order Number: [id number] [facility] FinalReport [place], [place] Patient Name: Karlos Anthony ID#:[id number] :1960 Procedure Date: February 03, 2024 Case [...] was designated as ASA Class III. The [facility] clinical frailty scale is 3: Managing Well. [...] (Bezet) 372 ms MUSE SYSTEM Calculated P [place] 59 degrees MUSE SYSTEM Calculated R [place] 34 degrees MUSE SYSTEM Calculated T [place] 63 degrees MUSE SYSTEM INTERPRETATION Sinus bradycardia [...] MD) documented in this encounter Care Teams Carpet Renovator Relationship Specialty Start Date End Date Vanessa Christian APRN PCP - General Family Medicine 10/21/23 documented as of this encounter
--- OUTSIDE RECORDS SUMMARY | 2024-05-15 07:58 | XMS_ITS | Encounter Summary ---
Author Organization [facility] [place] [address] Care Team Providers Care Supervisor Pullet Farm Name Role Phone Vanessa Christian MAURI Primary Care Provider [phone] Encounter Details Date Type Department Care Team (Late st Contact Info) Description 01/10/2024 Orders Only [place] [id number] Lawson Napoles PA [facility] [place] [address] Screening for cardiovascular condition; Aortic valve stenosis, [...] AM EDT Office Visit Cardiology at [address] [place] [id number] Neftali Ernandez MD [facility] [place] [address] documented as of this encounter Visit Diagnoses Diagnosis Screening for cardiovascular condition Screening for other and unspecified cardiovascular conditions Aortic valve stenosis, etiology of cardiac valve disease unspecified documented in this encounter Care Teams Supervisor Pullet Farm Relationship Specialty Start Date End Date Vanessa Christian APRN PCP - General Family Medicine 10/21/23 documented as of this encounter
--- OUTSIDE RECORDS SUMMARY | 2024-05-15 07:58 | XMS_ITS | Encounter Summary ---
[facility] [place] [address] Care Team Providers Care Emt/Dispatcher Name Role Phone Aparna Jordan MAURI Primary Care Provider [phone] Reason for Visit * Auth/Cert (Routine) Specialty [...] ARTERIAL GRAFT (WRVU 7.93) Hayder Graham MD [facility] [place] [address] [facility] Referral ID Status Reason Start Date Expiration Date Visits Re quested Visits Authorized [id number] 1 1 Encounter Details Date Type Department Care Team (Late st Contact Info) Description 02/17/2024 7:30 AM EDT - 02/17/2024 1:26 PM EDT Surgery [place] [id number] Hayder Graham MD [facility] [place] [address] ENDOSCOPIC HARVEST VEIN(S) FOR CABG (WRVU 0.31) Social History Tobacco Use Types Packs/Day Years Used Date Smoking Tobacco: Former Cigarettes Smokeless Tobacco: Never Comments:Quit 15 + years ago Alcohol Use Standard Drinks/Week Comments Yes 0 (1 standard drink = 0.6 oz pur e alcohol) rare [facility] Utilities Answer Date Recorded In the [...] place to sleep or slept in a residential (including now)? No 02/18/2024 DH IPV Inpatient [...] Patient Age: 63 y.o. Birthdate: 1960 Language: Kyrgyz Race: White Ethnicity: Not nor Admit Date: 02/17/2024 Discharge Date: 02/24/24 Attending Physician: Hayder Graham MD Follow-up Recommendations for Providers: Please continue routine management of cardiovascular risk factors including blood pressure, lipids,glucose, etc. Please note any changes to medications. Patient to follow up with PCP, Aparna Jordan APRN, in 1-2 weeks. Patient to follow up with Civil Service Clerk, Neftali Ernandez MD , in 2 weeks. Patient to follow up with Cardiac Surgeon, Dr. Hayder Graham, with a chest x-ray, EKG, and Echo. 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 Right latter day Past Surgical History: Procedure Laterality Date PRO CABG, ARTERIAL, SINGLE N/A 02/17/2024 @CABG, USING ARTERIAL GRAFT;SINGLE ARTERIAL GRAFT (WRVU 33.75) performed by Hayder Graham MD at [facility] MAIN OR PRO CABG, ARTERY-VEIN, TWO N/A 02/17/2024 @CABG, TWO VENOUS GRAFTS & ARTERIAL GRAFT (WRVU 7.93) performed by Hayder Graham MD at [facility] MAIN OR PRO ENDOSCOPY W/VIDEO-ASST VEIN HARVEST, CABG Left 02/17/2024 ENDOSCOPIC HARVEST VEIN(S) FOR CABG (WRVU 0.31) performed by Hayder Graham MD at [facility] MAIN OR PRO REPLACEMENT PROSTHETIC AORTIC VALVE OPEN W CARDIOPULMONARY BYPASS HOMOGRF/STENT N/A 02/17/2024 @REPLACE AORTIC VALVE, OPEN, W\CPB, W\PROSTHETIC VALVE (WRVU 41.32) performed by Hayder Graham MD at [facility] MAIN OR Prior To Admission [...] insufficiency. He has glaucoma. He used to bacWho Works Around You until about 15 years ago. He has undergone prior herniorrhaphy. 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 Major Procedures/Operations: 02/17/24 s/p avr/cabgx3 CABG x 3 JOSE->LAD SVG->dRCA SVG->OM1 EVH from LLE AVR with a 23 mm Inspiris Bioprosthesis Hospital Course: Karlos Garcia [facility] [...] Hayder Graham and/or the Cardiac Surgery Physician Compliance Reviewer Team may be reached at . Antibiotic [...] Please refer to the card with the Italian Heart Association Guidelines for more information. You [...] Dr. Hayder Graham. You may use a Wrens Track or treadmill but avoid any pulling [...] friends, go to a movie, go to rastafari, etc. Heavy activities: No hunting, skiing, jogging, [...] should resume a low fat, low cholesterol, Italian Heart Association Diet. Driving: No driving until [...] while being managed by your PCP and/or Civil Service Clerk. For future medication refills, please refer to your PCP and/or Civil Service Clerk after your discharge from our service. Thank you REMOVE CHEST TUBE SUTURES ON OR AFTER 03/02/24 Home oxygen therapy: N/A Follow up appointments: You should follow up with your PCP, Aparna Jordan APRN, in 1-2 weeks. Our office will schedule an appointment with your Civil Service Clerk, Neftali Ernandez MD , in 2 weeks. You have an appointment with your Cardiac Surgeon, Dr. Hayder Graham, 4 weeks with a chest x-ray, EKG, and Echo before your appointment. Cardiac Rehabilitation: Karlos Garcia was seen regarding participation in the outpatient Phase 2Cardiac Rehabilitation at [facility]. The patient agrees to a referral to this program. The referral will be sent at discharge and the patient should be contacted by the Program within 1- 2 weeks from discharge. Future Appointments and Orders Future Orders Complete By Expires Echocardiogram Transthoracic [37135 CPT(R)] 03/26/2024 09/25/2024 Process Instructions: Scheduling Instructions: Questions: Where will study be performed?: [facility] Does the patient have Congenital Heart Disease?: Does patient require sedation?: Sedation rationale: XR Chest PA & Lateral (Generic) [50167 48208 Custom] 03/26/2024 09/25/2024 Process Instructions: Scheduling Instructions: Questions: Portable exam?: Reason for exam and clinical history: s/p avr/cabg Clinical information / jerome questions for radiologist: Stat read required?: Date of injury if applicable: Requested Time: Where will study be performed?: [facility] Radiology Referral to Cardiac Rehab [[id number] Custom] As directed Process Instructions: If no progress note charted, please enter Clinical details in comments. Scheduling Instructions: Questions: My question or request is: s/p AVR/CABG. Cardiac rehab at [facility]. Referral to Home Health [REF34 Custom] As directed Process Instructions: If no progress note charted, please enter Clinical details in comments. Scheduling Instructions: Comments: Please evaluate Karlos Garcia for admission to Home Health. [address] Phone Number: Date of : 1960 Inpatient DOCUMENTATION FOR VNA SERVICES (INCLUDING THOSE PATIENTS WITH MEDICARE COVERAGE REQUIRING HOME VNA SERVICES AND/OR HOSPICE SERVICES) PATIENT'S LOCATION: Karlos Garcia [address] [employer] [phone] Composition Roll Maker And Cutter's Name: self/family In discussion with the attending physician, it is certified that this patient is under their care and that they, or a Nurse Practitioner, or Physician Compliance Reviewer who is working directly with them, hada [...] for services as follows: HOME HEALTH AGENCY: [facility] [address] [place] [address] RN orders: Cardiopulmonary assessment, incisional assessment, assess [...] issues please call the Cardiology Office at [phone] FOR MEDICARE ONLY: (please delete this section [...] care: As above. Signed: NEFTALI MENON PA-C [facility] Section of Cardiac Surgery [facility] [address] FAX [phone] Date: 02/24/2024 CC: Aparna Jordan, MAURI Jordan, Aparna Sherman APRN [address] [place] [address] documented in this encounter Discharge Instructions * [...] Hayder Graham and/or the Cardiac Surgery Physician Compliance Reviewer Team may be reached at . Antibiotic [...] Please refer to the card with the Italian Heart Association Guidelines for more information. You [...] Dr. Hayder Graham. You may use a Wrens Track or treadmill but avoid any pulling [...] friends, go to a movie, go to rastafari, etc. Heavy activities: No hunting, skiing, jogging, [...] should resume a low fat, low cholesterol, Italian Heart Association Diet. Driving: No driving until [...] while being managed by your PCP and/or Civil Service Clerk. For future medication refills, please refer to your PCP and/or Civil Service Clerk after your discharge from our service. Thank you REMOVE CHEST TUBE SUTURES ON OR AFTER 03/02/24 Home oxygen therapy: N/A Follow up appointments: You should follow up with your PCP, Aparna Jordan APRN, in 1-2 weeks. Our office will schedule an appointment with your Civil Service Clerk, Neftali Ernandez MD , in 2 weeks. You have an appointment with your Cardiac Surgeon, Dr. Hayder Graham, 4 weeks with a chest x-ray, EKG, and Echo before your appointment. Cardiac Rehabilitation: Karlos Garcia was seen regarding participation in the outpatient Phase 2Cardiac Rehabilitation at [facility]. The patient agrees to a referral to [...] 0600 and on the weekends please page [phone]. * Eric Barahona PA - 02/23/2024 9:27 [...] 0600 and on the weekends please page [phone]. * Tiffanie Owens - 02/22/2024 2:48 PM [...] Pt reports his dtr is coming from [place] to stay upon d/c for 10 days. 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 He drives. He works Precautions/Special Considerations: STERNAL [...] LRAD and supervision Time IN / OUT: 7610-7054 Total Time: 30 minutes; TEFx2 Tiffanie Owens Pager: [phone] Physical Therapy Inpatient Rehabilitation Department * Romeo [...] 0600 and on the weekends please page [phone]. * Kelley Hinson PTA - 02/21/2024 10:15 [...] Pt reports his dtr is coming from [place] to stay upon d/c for 10 days. 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 He drives. He works Precautions/Special Considerations: STERNAL [...] LRAD and supervision Time IN / OUT: 0384-1182 Total Time: 25 minutes; TEF 2 Kelley Hinson PTA Pager: [phone] Physical Therapy Inpatient Rehabilitation Department * Louisa [...] 0600 and on the weekends please page [phone]. * Kelley Hinson PTA - 02/20/2024 3:32 PM EDT 02/20/24 6476 Evaluation & Treatment Document Type contact Total Minutes, Physical Therapy 0 Comment, Session Not Performed Checked in w/ pt this PM for ongoing PT services, pt politely declined, stating he had been dealing w/ nausea all day, made plan to see him tomorrow morning, will f/u at that time Kelley Hinson PTA Pager: [phone] Physical Therapy Inpatient Rehab Department * Louisa [...] 0600 and on the weekends please page [phone]. * Maris Benavides, PT - 02/19/2024 11:22 [...] Pt reports his dtr is coming from [place] to stay upon d/c for 10 days. 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 He drives. He works. Precautions/Special Considerations: STERNAL [...] outlined inthis evaluation. MARIS BENAVIDES, PT Pager: [phone] Physical Therapy Inpatient Rehabilitation Department Time IN / OUT: 2806-8192 Total Time: 38 (eval) minutes; * Antonio [...] 0600 and on the weekends please page [phone]. * Minnie Begum PA - 02/18/2024 8:25 [...] site CDI with SANJANA wrap Tubes/Lines/Drains: RIJ/PAC, [place], Med Ctx, L pleural CT, TPW, Naqvi [...] with attending surgeon on rounds this morning. GILLAIN Garcia 02/18/2024 Between the hours of 1800 - 0600 and on the weekends please page [phone]. * Kim Ha RCP - 02/17/2024 2:25 [...] plan since last visit. Hayder Graham MD [phone] Source Note - Hayder Graham MD - [...] given written informed consent. Hayder Graham MD [phone] * Hayder Graham MD - 02/17/2024 7:00 [...] insufficiency. He has glaucoma. He used to bacWho Works Around You until about 15 years ago. He has [...] given written informed consent. Hayder Graham MD [phone] documented in this encounter Miscellaneous Notes * [...] information for follow-up Home Health & Hospice, [address] [place] [address] Cardiac Rehab, [facility] [address] [place] [address] [place] [address] Transportation: family or friend will provide Functional status prior to admission: Independent Home Environment: Others in the home: alone. Current Living Arrangements: home/apartment/condo. Accessibility Concerns:a few steps to enter 1 floor home. Current Functional Ability: Assistive Person and Equipment DME used at home: none DME Needed at Discharge: N/A Patient is insured through: Primary Insurance: [employer] Payor: [employer] / Plan: [facility] PPO / Product Type: *No Product [...] pain managed with scheduled Tylenol. Worked with [employer]. Ambulated in the roque multiple times during [...] anticipated Patient is insured through: Primary Insurance: [employer] Payor: [employer] / Plan: [facility] PPO / Product Type: *No Product type* / Secondary Insurance: N/A Last Physical Therapy Recommendation: home with home health (Str coming to stay for a week or two upon d/c) with to be determined (owns rolling walker, shower seat) Plan for discharge is: Home w/ Services Outpatient Agency/Support Group Needs: Homecare agency Home Health Services: Physical Therapy, Registered Nurse Agency Referrals: [facility]. [address] [place] [address] Transportation: family or friend will provide Barriers to discharge: Discharge planning Plan going forward: Service Care Management will continue to follow and assist with discharge planning and coordination of care as indicated. Anticipated Date of Discharge: 02/22/2024 Rhett Bell RN RN/CM - Cellphone: [phone] Pager: [phone] Covering Service RN/CM * Plan of Care [...] Yang RN - 02/19/2024 10:44 AM EDT [facility] Karlos Garcia was seen today regarding participation in the outpatient Phase 2 Cardiac Rehabilitation at [facility]. 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 (Only good for 180 days) Any patient receiving care in [place] must abide by [place] law. The hierarchy for surrogate decision making [...] (i) The agent with financial power of brim cutter or a conservator appointed in accordance with [...] In the past 12 months has the [employer], gas, oil, or water [employer] threatened to shut off services in your [...] Home Address confirmed as: [address] [facility] [address] Physical address: [address] [facility], [address] Social & Family Supports: All names listed [...] Information: none noted Health/Prescription Coverage: Primary Insurance: [employer] Payor: [employer] / Plan: [facility] PPO / Product Type: *No Product type* / Secondary Insurance: N/A ; Prescription Coverage: Yes Preferred Pharmacy: [id number] [address] [place] Status: Patient is a : No Primary Care Provider confirmed: Aparna Jordan, SPRINKLER INSPECTOR [phone] Patient/Caregiver Goals of Treatment: dc to home Potential Needs for Transition of Care: home health care Agency Referrals: I have met with the patient to: discuss discharge planning needs. provide the [facility], Office of Care Management letter from the Civil Preparedness Training Officer pertaining to rehab referrals. provide a letter describing our affiliations within the [facility] and educate about their right to choose where referrals are sent. provide a list of Home Health Agencies / Durable Medical Equipment vendors which serve their preferred geographic area. provided patient with [facility] Star Quality Rating handout. They have requested referrals to: [facility] [address] [place] [address] Note routed to a Home Health Caregiver who will communicate referrals to facilities and [...] daughter, Cielo, will be coming in from [place] on 02/18, to stay with him , in his home ,at discharge. Pt states that she is able to provide support/assist for any needs that he may have when discharged. Plan: dc to home A member of the Care Management team will continue to monitor progress, follow for continuity of care and assist with transition of care planning. Reina Greene RN CM, BSN, [facility]- Ext [phone] * Plan of Care - Binta Trinidad [...] Operative Note Patient Name: Karlos Garcia : [id number] MR#: [id number] Case Date: 02/17/2024 Surgeon: Surgeon(s) and Role: * Hayder Graham MD - Primary * Neftali Menon PA - Physician Compliance Reviewer Preoperative diagnosis: CAD Postoperative diagnosis: CAD, intraoperative [...] mL Drains: Mediastinal and Left pleural Disposition: [facility] Condition: doing well without problems Attestation: Case Date: 02/17/2024 I performed this procedure without the involvement of a resident. HAYDER GRAHAM MD 02/17/2024 * Op Note - Hayder Graham MD - 02/17/2024 8:20 AM EDT [facility] Operative Note Patient Name: Karlos Garcia : [id number] MR#: [id number] Case Date: 02/17/2024 Surgeon: Surgeons and Role: * Hayder Graham MD - Primary * Neftali Menon PA - Physician Compliance Reviewer Preoperative diagnosis: CAD Postoperative diagnosis: CAD, intraoperative [...] mL Drains: Mediastinal and Left pleural Disposition: [facility] Procedure Description: The patient was [...] AM EDT Office Visit Cardiology at [address] [address] Neftali Ernandez MD [facility] [place] [address] Scheduled Orders Name Type Priority Associated Diagnoses [...] Aortic Valve Open W Cardiopulmonary Bypass Homogrf/Stent (39389) Yes 02/17/2024 7:28 AM EDT CAD Cabg, Artery-Vein, Two (83745) Yes 02/17/2024 7:28 AM EDT CAD Cabg, Arterial, Single (65196) Yes 02/17/2024 7:28 AM EDT CAD Endoscopy W/Video-Asst Vein [place], Cabg (25089) Yes 02/17/2024 7:28 AM EDT CAD POCT [...] CHEMISTRY ORDERABLE S [facility] [place] [address] * (ABNORMAL) Basic Metabolic Panel (non-fasting) (02/23/2024 [...] MD CHEMISTRY ORDERABLES [facility] [place] [address] * Potassium (02/22/2024 4:30 AM EDT) Potassium [...] CHEMISTRY ORDERABLE S [facility] [place] [address] * (ABNORMAL) Basic Metabolic Panel (non-fasting) (02/21/2024 [...] MD CHEMISTRY ORDERABLES [facility] [place] [address] * Lactate, whole blood, send to lab ([facility]) (02/21/2024 9:45 AM EDT) [facility] Lactate WB 2.0 0.5 - 2.2 mmol/L [facility] Blood 02/21/2024 9:45 AM EDT 02/21/2024 9:52 AM EDT Narrative Resulting Agency Comment Spec In Lab Hayder Graham MD CHEMISTRY ORDERABLE S Performing Organization Address [facility]/ZIP Co de Phone Number [facility] [place] [address] * (ABNORMAL) Hepatic Function Panel (02/21/2024 9:45 AM EDT) [facility] Protein, Total 5.7(L) 6.1 - 8.0 [...] MD CHEMISTRY ORDERABLE S Performing Organization Address City/[facility]/ZIP Co de Phone Number [facility] [place] [address] * Lipase (02/21/2024 9:45 AM EDT) Lipase 56 0 - 60 unit/L [facility] Blood 02/21/2024 9:45 AM EDT 02/21/2024 9:52 AM EDT Narrative Resulting Agency Comment Spec In Lab Hayder Graham MD CHEMISTRY ORDERABLE S Performing Organization Address City/[facility]/ZIP Co de Phone Number [facility] [place] [address] * Amylase (02/21/2024 9:45 AM EDT) Amylase 69 28 - 100 unit/L [facility] Blood 02/21/2024 9:45 AM EDT 02/21/2024 9:52 AM EDT Narrative Resulting Agency Comment Spec In Lab Hyader Graham MD CHEMISTRY ORDERABLE S Performing Organization Address [facility]/[place]UST Co de Phone Number [facility] [place] [address] * Potassium (02/21/2024 3:08 AM EDT) [facility] Potassium 3.8 3.5 - 5.0 mmol/L ST [...] MD CHEMISTRY ORDERABLE S Performing Organization Address City/[facility]/ZIP Co de Phone Number [facility] [place] [address] * XR Chest PA & Lateral (Generic) (02/20/2024 10:19 AM EDT) [facility] WORKSTATION ID [id number] RAD Anatomical Region Laterality Modality Chest N/A Digital Radiogra phy Impressions 02/20/2024 1:11 PM EDT Small pleural effusions. No pneumothorax Thank you for letting us participate in the care of this patient. ??If you are a health care provider and have any questions regarding this report, please contact the number below. ??For patients who have questions please contact the health manager primary care that requested your imaging first. ? Electronically signed by: Rogerio Cruz MD, [facility] ??([phone]), at 02/20/2024 1:11 PM Narrative 02/20/2024 1:11 PM EDT EXAMINATION: XR CHEST PA AND LATERAL (GENERIC) CLINICAL HISTORY: s/p AVR/CABGx3 TECHNIQUE: PA and lateral views of the chest COMPARISON: 02/17/2024 FINDINGS: Support devices: Interval removal of [place]-Kaila catheter, endotracheal tube and mediastinal chest tubes The cardiac silhouette is stable status post median sternotomy, CABG and aortic valve replacement. There are small pleural effusions. No pneumothorax. Procedure Note Rogerio Cruz MD - 02/20/2024 EXAMINATION: XR CHEST PA AND LATERAL (GENERIC) CLINICAL HISTORY: s/p AVR/CABGx3 TECHNIQUE: PA and lateral views of the chest COMPARISON: 02/17/2024 FINDINGS: Support devices: Interval removal of [place]-Kaila catheter, endotracheal tubeand mediastinal chest tubes The [...] patients who have questions please contactthe health manager primary care that requested your imaging first. Electronically signed by: Rogerio Cruz MD, [facility]([phone]), at 02/20/2024 1:11 PM Hayder Graham MD IMG DX ORDERABLES * Scan, Peripheral Blood (02/20/2024 4:23 AM EDT) Pathologist [facility] Plat estimate Decreased [facility] RBC Morphology Normal [facility] Blood 02/20/2024 4:23 AM EDT 02/20/2024 4:42 AM EDT Narrative Resulting Agency Comment Spec In Lab Minnie FRENCH HEMATOLOGY CECILIO ALEMAN [facility] [place] [address] * (ABNORMAL) Differential, Automated (02/20/2024 4:23 AM EDT) [facility] Neutrophil % 81.7 % [facility] Neutrophil Absolute 10.37(H) 1.70 - 6.10 x10(3)/mc L [facility] Lymph % 7.4 % [facility] Lymphocytes Abs 0.9 0.9 - 3.2 x10(3)/mc L [facility] Monocyte % 9.7 % [facility] Monocyte Abs 1.2(H) 0.3 - 0.9 x10(3)/mc L [facility] Eos % 0.1 % [facility] Eosinophils Abs 0.0 0.0 - 0.4 x10(3)/mc L [facility] Basophil % 0.2 % [place] [...] HEMATOLOGY CECILIO ALEMAN [facility] [place] [address] * (ABNORMAL) Hemogram (02/20/2024 4:23 AM EDT) [facility] NRBC% auto 0.0 % [facility] NRBC Absolute 0.000 0.000 - 0.000 x10(3)/mc L [facility] Blood 02/20/2024 4:23 AM EDT 02/20/2024 4:42 AM EDT Narrative Resulting Agency Comment Spec In Lab Minnie FRENCH HEMATOLOGY CECILIO ALEMAN [facility] [place] [address] * (ABNORMAL) Basic Metabolic Panel (non-fasting) (02/20/2024 [...] MD CHEMISTRY ORDERABLE S Performing Organization Address [facility]/[place] Co de Phone Number [facility] [place] [address] * Potassium (02/19/2024 3:57 AM EDT) Potassium [...] MD CHEMISTRY ORDERABLE S Performing Organization Address [facility]/[place] Co de Phone Number [facility] [place] [address] * POCT Glucose (02/18/2024 8:24 AM EDT) Glucose, POC 157 65 - 199 mg/dL [facility] Comment: Supplemental ranges: <140 mg/dL before meals <180 mg/dL all other times of the day Blood 02/18/2024 8:24 AM EDT 02/18/2024 8:24 AM EDT Hayder Graham MD POINT [place] [address] * Scan, Peripheral Blood (02/18/2024 1:40 AM EDT) Pathologist [facility] Plat estimate Decreased [facility] RBC Morphology Normal [facility] Blood 02/18/2024 1:40 AM EDT 02/18/2024 1:56 AM EDT Narrative Resulting Agency Comment Spec In Lab Neftali FRENCH HEMATOLOGY ORDER OLE Performing Organization Address City/[facility]/ZIP Co de Phone Number [facility] [place] [address] * (ABNORMAL) Differential, Automated (02/18/2024 1:40 AM EDT) [facility] Neutrophil % 87.1 % [facility] Neutrophil Absolute 15.03(H) 1.70 - 6.10 x10(3)/mc L [facility] Lymph % 3.0 % [facility] Lymphocytes Abs 0.5(L) 0.9 - 3.2 x10(3)/mc L [facility] Monocyte % 9.1 % [facility] Monocyte Abs 1.6(H) 0.3 - 0.9 x10(3)/mc L [facility] Eos % 0.0 % [facility] Eosinophils Abs 0.0 0.0 - 0.4 x10(3)/mc L [facility] Basophil % 0.2 % [place] [...] HEMATOLOGY ORDER OLE [facility] [place] [address] * (ABNORMAL) Hemogram (02/18/2024 1:40 AM EDT) White Blood Cell 17.2(H) 4.0 - 9.5 x10(3)/[facility] Red Blood Cell 4.71 4.58 - 5.54 x10(6)/[facility] Hemoglobin 13.7 13.7 - 16.5 g/dL [facility] Hematocrit 39.2(L) 40.5 - 48.5 % [facility] Mean Cell Volume 83.2 82.9 - 93.1 [facility] Mean Cell Hemoglobin 29.1 27.5 - 32.[address] [facility] Mean Cell Hemoglobin Concentration 34.9 32.0 - 35.7 g/dL [facility] Platelet 147 145 - 357 x10(3)/mc L [facility] RDW Standard Deviation 39.9 36.0 - 45.0 [facility] RDW coefficient of variation 13.2 11.4 - 13.8 % [facility] Mean Platelet Volume 9.9 7.6 - 12.9 [facility] NRBC% auto 0.0 % [facility] NRBC Absolute 0.000 0.000 - 0.000 x10(3)/ L [facility] Blood 02/18/2024 1:40 AM EDT 02/18/2024 1:56 AM EDT Narrative Resulting Agency Comment Spec In Lab Neftali FRENCH HEMATOLOGY ORDER OLE [facility] [place] [address] * (ABNORMAL) Basic Metabolic Panel (non-fasting) (02/18/2024 [...] CHEMISTRY ORDERABLE S [facility] [place] [address] * (ABNORMAL) Troponin (02/18/2024 1:40 AM EDT) [...] can be found in the [facility] Test Catalog Troponin - [facility] Test Catalog Reference: Fourth [place] Definition of Myocardial Infarction. Journal of the [place] College [employer] 2018;72:0690-1723 Blood 02/18/2024 1:40 AM EDT 02/18/2024 1:56 AM EDT Narrative Resulting Agency Comment Spec In Lab Hayder Graham MD CHEMISTRY ORDERABLE S [facility] [place] [address] * POCT Glucose (02/17/2024 8:13 PM EDT) Glucose, POC 142 65 - 199 mg/dL [facility] Comment: Supplemental ranges: <140 mg/dL before meals <180 mg/dL all other times of the day Blood 02/17/2024 8:13 PM EDT 02/17/2024 8:13 PM EDT Hayder Graham MD POINT OF CARE TEST ORDERABLES Performing Organization Address [facility]/[place] Co de Phone Number [facility] [place] [address] * POCT Glucose (02/17/2024 5:42 PM EDT) Glucose, POC 160 65 - 199 mg/dL [facility] Comment: Supplemental ranges: <140 mg/dL before meals <180 mg/dL all other times of the day Blood 02/17/2024 5:42 PM EDT 02/17/2024 5:42 PM EDT Hayder Graham MD POINT OF CARE TEST ORDERABLES Performing Organization Address [facility]/[place] Co de Phone Number [facility] [place] [address] * Hemoglobin (02/17/2024 5:42 PM EDT) Hemoglobin 13.7 13.7 - 16.5 g/dL [facility] Blood 02/17/2024 5:42 PM EDT 02/17/2024 6:10 PM EDT Narrative Resulting Agency Comment Spec In Lab Hayder Graham MD HEMATOLOGY ORDERABL ES Performing Organization Address City/[facility]/ZIP Co de Phone Number [facility] [place] [address] * Potassium (02/17/2024 5:42 PM EDT) Potassium [...] CHEMISTRY ORDERABLE S [facility] [place] [address] * (ABNORMAL) BLOOD GAS 2 ARTERIAL (02/17/2024 [facility] FIO2 Art 40 % [facility] PF Ratio Art 195 [facility] Blood 02/17/2024 4:18 PM EDT 02/17/2024 4:18 PM EDT Hayder Graham MD POINT OF CARE TEST ORDERABLES [facility] [place] [address] * XR Chest One View (02/17/2024 1:44 PM EDT) [employer] WORKSTATION ID [id number] RAD Anatomical Region Laterality Modality Chest N/A Digital Radiogra phy Impressions 02/17/2024 2:12 PM EDT 1. ??No definite pleural fluid collection or pneumothorax. 2. ??Right IJ [place]-Kaila catheter tip terminates in a descending branch of the right pulmonary artery. Suggest catheter retraction. 3. ??Additional support lines and tubes as above. Thank you for letting us participate in the care of this patient. ??If you are a health care provider and have any questions regarding this report, please contact the number below. ??For patients who have questions please contact the health manager primary care that requested your imaging first. ? Electronically signed by: Denzel Hankins MD, [facility] ??([phone]), at 02/17/2024 2:12 PM Narrative 02/17/2024 2:12 PM EDT EXAMINATION: XR CHEST ONE VIEW CLINICAL HISTORY: s/p avr/cabg eval effusions TECHNIQUE: 1 view of the chest COMPARISON: Chest x-ray 01/09/2024, chest CT 02/03/2024 FINDINGS: ET tube tip terminates 5.2 cm above the carlos. Right IJ [place]-Kaila catheter tip terminates in a descending branch [...] 5.2 cm above the carlos. Right IJ [place]-Ganzcatheter tip terminates in a descending branch of [...] fluid collection or pneumothorax. 2. Right IJ [place]-Kaila catheter tip terminates in a descending branch ofthe right pulmonary artery. Suggest catheter retraction. 3. Additional support lines and tubes as above. Thank you for letting us participate in the care of this patient. If youare a health care provider and have any questions regarding this report,please contact the number below. For patients who have questions please contactthe health manager primary care that requested your imaging first. Electronically signed by: Denzel Hankins MD, [facility]([phone]), at 02/17/2024 2:12 PM Hayder Graham MD IMG DX ORDERABLES * [facility] FIO2 Art 100 % [facility] PF Ratio Art 320 [facility] Blood 02/17/2024 1:31 PM EDT 02/17/2024 1:31 PM EDT Hayder Graham MD POINT OF CARE TEST ORDERABLES Performing Organization Address City/State/[place] Co de Phone Number [facility] [place] [address] * (ABNORMAL) Coox2 (02/17/2024 1:21 PM EDT) pO2, Coox 44 mmHg [facility] [...] CARE TEST ORDERABLES [facility] [place] [address] * (ABNORMAL) BLOOD GAS 2 ARTERIAL (02/17/2024 [...] OF CARE TEST ORDERABLES Performing Organization Address [facility]/[place] Co de Phone Number [facility] [place] [address] * (ABNORMAL) Fibrinogen (02/17/2024 12:10 PM EDT) [...] MD HEMATOLOGY ORDERABLE S Performing Organization Address [facility]/[place] Co de Phone Number [facility] [place] [address] * (ABNORMAL) Thrombin time (02/17/2024 12:10 PM [...] MD HEMATOLOGY ORDERABLE S Performing Organization Address [facility]/[place] Co de Phone Number [facility] [place] [address] * APTT (02/17/2024 12:10 PM EDT) Partial [...] MD HEMATOLOGY ORDERABLE S Performing Organization Address [facility]/[place] Co de Phone Number [facility] [place] [address] * (ABNORMAL) Prothrombin Time (02/17/2024 12:10 PM [...] HEMATOLOGY ORDERABLE S [facility] [place] [address] * (ABNORMAL) Hemogram (02/17/2024 12:10 PM EDT) [facility] NRBC% auto 0.0 % [facility] NRBC Absolute 0.000 0.000 - 0.000 x10(3)/mc L [facility] Blood 02/17/2024 12:1 0 PM EDT 02/17/2024 12:19 PM EDT Narrative Resulting Agency Comment Spec In Lab Tara York MD HEMATOLOGY ORDERABLE S [facility] [place] [address] * (ABNORMAL) BLOOD GAS 2 ARTERIAL (02/17/2024 [...] [facility] Comment: Noted by musical instrument maker or repairer. Please note: Patients with WBC >100,000 [...] CARE TEST ORDERABLES [facility] [place] [address] * (ABNORMAL) BLOOD GAS 2 ARTERIAL (02/17/2024 [...] [facility] Comment: Noted by musical instrument maker or repairer. Please note: Patients with WBC >100,000 [...] OF CARE TEST ORDERABLES Performing Organization Address [facility]/[place] Co de Phone Number [facility] [place] [address] * (ABNORMAL) Hemoglobin and Hematocrit, blood (02/17/2024 [...] MD HEMATOLOGY ORDERABL ES Performing Organization Address [facility]/ZIP Co de Phone Number [facility] [place] [address] * (ABNORMAL) Platelet count (02/17/2024 11:04 AM EDT) Platelet 106(L) 145 - 357 x10(3)/mc L [facility] Immature Plt % 1.6 0.0 - 7.4 % [facility] Comment: Limitation of the Immature Platelet Fraction (IPF)-May be less reliable when the platelet count is less than 81x342/uL due to statistical imprecision. The IPF value [...] in a decreased state of production. References: [employer] The Clinical Value of the Immature Platelet Fraction (IPF) in Cell Recovery Document Number 10-1143 03/2011 [employer] The Role of the Immature Platelet Fraction (IPF) in the Differential Diagnosis of Thrombocytopenia, Document MKT-[id number] V002/15/14 Blood 02/17/2024 11:0 4 AM EDT 02/17/2024 11:12 AM EDT Narrative Resulting Agency Comment Spec In Lab Hayder Graham MD HEMATOLOGY ORDERABL ES Performing Organization Address City/State/[place] Co de Phone Number [facility] [place] [address] * (ABNORMAL) Fibrinogen (02/17/2024 11:04 AM EDT) [...] ORDERABL ES [facility] [place] [address] * (ABNORMAL) BLOOD GAS 2 ARTERIAL (02/17/2024 [...] CARE TEST ORDERABLES [facility] [place] [address] * (ABNORMAL) BLOOD GAS 2 ARTERIAL (02/17/2024 [...] CARE TEST ORDERABLES [facility] [place] [id number] * Surgical Pathology Report (02/17/2024 10:01 AM EDT) Final Diagnosis [id number] ? Location: [facility]; [facility]; The signing pathologist has (i) examined the relevant preparation(s) for the specimen(s) and (ii) rendered or confirmed the diagnosis(es). . ?Surgical Pathology DIAGNOSIS Aortic valve leaflets, excision: Valve leaflets with myxoid degeneration, nodular fibrosis and dystrophic calcifications. Electronically signed by: ?Livier Montoya MD Verified: ??02/24/2024 13:49 ??Pathologist Performed at: ??-[facility] [place], [place] [address] Civil Preparedness Training Officer: Job Brewer MD, FCAP, ??IA Certificate: [id number] SPECIMEN(S) SUBMITTED A - Aortic Valve Leaflets, [...] Sections Processing Blocks submitted for decalcification: A1. Road Machine Runner sections in 1 cassette labeled A1. ??ajw 02/24/2024 1:[address] [facility] AORTIC STRUCTURE / Unknown 02/17/2024 10:01 AM EDT 02/17/2024 10:01 AM EDT Hayder Graham MD PATHOLOGY/CYTOLOGY ORDERABLES [facility] [place] [address] * Specimen to Pathology (02/17/2024 10:01 AM EDT) AP Specimen 02/17/2024 10:0 1 AM EDT 02/17/2024 10:[address] [facility] - 02/17/2024 10:01 AM EDT Specimen requisition ordered. ??Separate Pathology report to follow Hayder Graham MD PATHOLOGY/CYTOLOGY ORDERABLES [facility] [place] [address] * (ABNORMAL) BLOOD GAS 2 ARTERIAL (02/17/2024 [...] CARE TEST ORDERABLES [facility] [place] [address] * (ABNORMAL) BLOOD GAS 2 VENOUS (02/17/2024 9:34 AM EDT) pH, Venous 7.22(Criti marquez) 7.32 - 7.42 [facility] Comment:Noted by musical instrument maker or repairer. PCO2, Venous 43 41 - [address] [facility] Comment:Noted by musical instrument maker or repairer. PO2, Venous 57(H) 25 - [address] [facility] Comment:Noted by musical instrument maker or repairer. Bicarbonate, Venous 17.1 mmol/L [facility] Comment:Noted by musical instrument maker or repairer. Base Excess, Venous -10.6 mmol/L [facility] Comment:Noted by musical instrument maker or repairer. Hgb Blood Gas 11.2(L) 13.7 - 16.5 g/dL [facility] Comment:Noted by musical instrument maker or repairer. Oxyhemoglobin, Venous 86.5 % [facility] Comment:Noted by musical instrument maker or repairer. Carboxyhemoglob in, Venous 0.3 % [facility] Comment: Noted by musical instrument maker or repairer. Nonsmokers: 0.5-1.5% COHB Smokers: Variable, but usually less than 10% Toxic: 20-30% COHB Lethal: Greater than 60% COHB Methemoglobin, Venous 0.0 <=1.5 % [facility] Comment:Noted by musical instrument maker or repairer. Na Whole Blood 156(H) 135 - 145 mmol/L [facility] Comment:Noted by musical instrument maker or repairer. K Whole Blood 5.5(H) 3.5 - 5.0 mmol/L [facility] Comment: Noted by musical instrument maker or repairer. Please note: Patients with WBC >100,000 may have falsely elevated Potassium levels. Contact the Clinical Chemistry Laboratory if there are any questions. ICa Whole Blood 1.03(L) 1.15 - 1.33 mmol/L [facility] Comment: Noted by musical instrument maker or repairer. Note: ??Total bilirubin higher than 20 mg/dL may lead to falsely low ionized calcium. CL Whole Blood 100 98 - 107 mmol/L [facility] Comment:Noted by musical instrument maker or repairer. Gluc Whole Bld 132 65 - 199 mg/dL [facility] Comment: Noted by musical instrument maker or repairer. Diabetes: >=200 mg/dL plus symptoms Lactate WB 1.0 0.5 - 2.2 mmol/L [facility] Comment:Noted by musical instrument maker or repairer. Blood Gas Source Venous [facility] Blood 02/17/2024 9:34 AM EDT 02/17/2024 9:34 AM EDT Hayder Graham MD POINT OF CARE TEST ORDERABLES [facility] [place] [address] * (ABNORMAL) BLOOD GAS 2 ARTERIAL (02/17/2024 [...] OF CARE TEST ORDERABLES Performing Organization Address [facility]/[place] Co de Phone Number [facility] [place] [address] * POCT Glucose (02/17/2024 6:38 AM EDT) Glucose, POC 98 65 - 199 mg/dL [facility] Comment: Supplemental ranges: <140 mg/dL before meals <180 mg/dL all other times of the day Blood 02/17/2024 6:38 AM EDT 02/17/2024 6:38 AM EDT Hayder Graham MD POINT OF CARE TEST ORDERABLES Performing Organization Address [facility]/[place] Co de Phone Number [facility] [place] [address] * Transesophageal Echo/OR (02/17/2024 6:33 AM EDT) [...] complete [facility]es[facility]-operative [facility] [...] Vincent RN)1000 (Stopped - Provider: Ingrid Menjivar, COLYB)1001 (New Bag - Provider: Ingrid Menjivar, COLBY)1201 [...] Routine documented in this encounter Care Teams Emt/Dispatcher Relationship Specialty Start Date End Date Aparna Jordan APRN PCP - General Family Medicine 10/21/23 documented as of this encounter
--- OUTSIDE RECORDS SUMMARY | 2024-05-15 07:59 | XMS_ITS | Encounter Summary ---
Author Organization [facility] [place] [address] Care Team Providers Care Printed Circuit Boards Plasma Etcher Name Role Phone Victor M Lafleur MD Primary Care Provider [phone] Encounter Details Date Type Department Care Team (Late st Contact Info) Description 09/26/2023 Abstract Cardiology at [address] [address] Karen Billy, RN Nonrheumatic aortic [...] AM EDT Office Visit Cardiology at [address] [address] Neftali Ernandez MD [facility] [place] [address] documented as of this encounter Visit Diagnoses Diagnosis Nonrheumatic aortic valve stenosis Aortic valve disorders Nevus of face Benign neoplasm of skin of other and unspecified parts of face documented in this encounter Care Teams Printed Circuit Boards Plasma Etcher Relationship Specialty Start Date End Date Victor M Lafleur MD PCP - General 10/02/13 10/20/23 documented as of this encounter
--- OUTSIDE RECORDS SUMMARY | 2024-05-15 07:59 | XMS_ITS | Encounter Summary ---
Author Organization [facility] Address [facility] Ivana linareseileen [place] [id number] Care Team Providers Care Printed Circuit Boards Router Name Role Phone Vanessa Christian MAURI Primary Care Provider [phone] Reason for Referral * Consultation (Routine) - Closed Specialty Diagnoses / Procedures Referred By Contac t Referred To Contact Cardiac Surgery Diagnoses Nonrheumatic aortic valve stenosis significant - TAVR ( defers to Card Surg d/t age) Errol Loya MD [facility] [place] [address] Zak Farmer MD [facility] [place] [address] Referral ID Status Reason Start Date Expiration Date V isits Requested Visits Authorized [id number] Closed Consult, Test & Treat 10/21/2023 10/20/2024 1 1 Reason for Visit * Reason Comments Chest Pain Shortness of Breath Aortic Stenosis Encounter Details Date Type Department Care Team (Late st Contact Info) Description 10/21/2023 1:20 PM EST Office Visit Cardiology at [address] [phone] Errol Loya MD [facility] [place] [address] Nonrheumatic aortic valve stenosis Social History Tobacco [...] Problem List Diagnosis Aortic stenosis 12/2022 TTE ([facility]): VITA 0.8-0.9 cm2 (MG 28 mmHg, DOI 3.6 m/s, SVI 35 cc/m2). Trace regurgitation. Normal bi-v s/f, no other valve findings Gastroesophageal reflux Nevus of face Right restoration Hypertension HLD (hyperlipidemia) MEDICATIONS: Current Outpatient Medications [...] the meantime will refer to [facility] at [facility] for further evaluation. Logistics and preliminary review [...] the meantime will refer to [facility]HT at [facility] for further evaluation. Logistics and preliminary review [...] AM EDT Office Visit Cardiology at [address] [place] [address] Errol Loya MD [facility] [place] [address] Scheduled Referrals Name Type Priority Associated Diagnoses Order Schedule Amb Referral to Structural Heart Outpatient Referral Routine Nonrheumatic aortic valve stenosis Ordered: 10/21/2023 documented as of this encounter Visit Diagnoses Diagnosis Nonrheumatic aortic valve stenosis Aortic valve disorders documented in this encounter Care Teams Printed Circuit Boards Router Relationship Specialty Start Date End Date Vanessa Christian APRN PCP - General Family Medicine 10/21/23 documented as of this encounter
--- OUTSIDE RECORDS SUMMARY | 2024-05-15 07:59 | XMS_ITS | Encounter Summary ---
Author Organization [facility] [place] [address] Care Team Providers Care Molding Engineer Name Role Phone Vanessa Christian APRN Primary Care Provider [phone] Encounter Details Date Type Department Care Team (Late st Contact Info) Description 10/21/2023 Abstract Cardiology at [address] [phone] Adam Mayes RN Social History Tobacco Use [...] AM EDT Office Visit Cardiology at [address] [phone] Neftali Ernandez MD [facility] [place] [address] documented as of this encounter Visit Diagnoses Not on filedocumented in this encounter Care Teams Molding Engineer Relationship Specialty Start Date End Date Vanessa Christian APRN PCP - General Family Medicine 10/21/23 documented as of this encounter
--- OUTSIDE RECORDS SUMMARY | 2024-05-15 07:59 | XMS_ITS | Encounter Summary ---
Author Organization [facility] [place] [address] Care Team Providers Care Career Based Intervention Coordinator Name Role Phone Vanessa Christian APRN Primary Care Provider [phone] Encounter Details Date Type Department Care Team (Late st Contact Info) Description 10/21/2023 Abstract Cardiology at [address] [phone] Adam Mayes RN Social History Tobacco Use [...] AM EDT Office Visit Cardiology at [address] [place] [address] Neftali Ernandez MD [facility] [place] [address] documented as of this encounter Visit Diagnoses Not on filedocumented in this encounter Care Teams Career Based Intervention Coordinator Relationship Specialty Start Date End Date Vanessa Christian APRN PCP - General Family Medicine 10/21/23 documented as of this encounter
--- OUTSIDE RECORDS SUMMARY | 2024-05-15 07:59 | XMS_ITS | Encounter Summary ---
[place] [address] Care Team Providers Care Duco Polisher Name Role Phone Victor M Lafleur MD Primary Care Provider [phone] Reason for Visit * Reason Onset Date Comments Referral 09/20/2023 Encounter Details Date Type Department Care Team (Late st Contact Info) Description 09/20/2023 Telephone Cardiology at [address] [phone] Karen Billy, char conveyor tender cellar Social History Tobacco Use Types Packs/Day Years [...] AM EDT Office Visit Cardiology at [address] [place] [address] Neftali Ernandez MD [facility] [place] [address] documented as of this encounter Visit Diagnoses Not on filedocumented in this encounter Care Teams Duco Polisher Relationship Specialty Start Date End Date Victor M Lafleur MD PCP - General 10/02/13 10/20/23 documented as of this encounter
--- OUTSIDE RECORDS SUMMARY | 2024-05-15 07:59 | XMS_ITS | Continuity of Care Document ---
[facility] Address [address] [place] [address] Care Team Providers Care Statistical Clerk Advertising Name Role Phone VANESSA JORDAN Primary Care [...] Patient InstructionsNo instructions recorded. Reason for Referral Machine Whitener Referral for Roland ateral hearing loss Referring [...] M16.12; Problem Code Type: ICD-10; Not Available [facility] 4 05:35:57 Inguinal hernia Active 2022 Problem Code: K40.90; Problem Code Type: ICD-10; Not Available [facility] 4 05:35:57 Heart murmur Active 2022 Problem Code: R01.1; Problem Code Type: ICD-10; Not Available [facility] 4 05:35:57 Dyspnea Active 2022 Problem Code: R06.09; Problem Code Type: ICD-10; Not Available [facility] 4 05:35:57 Chest pain Active 2022 Problem Code: R07.89; Problem Code Type: ICD-10; Not Available [facility] 4 05:35:57 Melanocytic nevus Active 2022 Problem Code: D22.9; Problem Code Type: ICD-10; Not Available [facility] 4 05:35:57 Aortic stenosis, non-rheumatic Active 2022 Problem Code: I35.0; Problem Code Type: ICD-10; Not Available [facility] 4 05:35:58 Aortic stenosis, non-rheumatic Completed 202208/14/2023 Problem Code: I35.0; Problem Code Type: ICD-10; Not Available [facility] 4 05:35:58 Indigestion Active 2023 GLORIA CAMP LPN null, [facility] 4 08:48:57 Coronary artery bypass grafts x 3 Active 2023 Kelly Duran RN null, [facility] 4 10:30:01 At increased risk of atrial fibrillation Active 2023 TATYANA LEDEZMA MD [address], [place], [address] , [facility]. 4 13:52:01 Anemia Active 2023 TATYANA LEDEZMA MD [address], [place], [address] , [facility] 13:54:39 Problem Notes None recorded. Procedures Surgical History Date Name Laterality Status Provider Name and Address Organization Details Recorded Time coronary artery bypass graft completed Hudson Reeder MA [facility], [facility] 03/04/2024 14:54:09 Imaging Results None recorded. [...] es. Take 1 hr prior. Started by [facility]. Not Available Not Available Not Available doxycycli [...] BY MOUTH DAILY 02/24 completed stopped by [facility] Not Available Not Available Not Available brimonidi [...] hours by oral route as needed. active [facility] Not Available Not Available No t Available Aspirin Childrens 81 mg chewable tablet Take 1 tablet by mouth once a day active Not Available Not Available No t Available lisinopri l 5 mg tablet TAKE 1 TABLET BY MOUTH EVERY DAY 02/24 completed stopped by [facility] Not Available Not Available Not Available mupirocin [...] day by oral route. active started by [facility] Not Available Not Available Not Available dorzolami [...] Updated DateTime 4 167.64 cm 22.6 kg/m2 62899.6 5 g 63 /min 99 % 99 % 102 mm[Hg] 54 mm[Hg] Hudson Reeder MA [facility] 10:27:28 Social History Question Answer Notes LastModified by Organizat ion Details LastModified Time Tobacco Smoking Status Former Smoker Hudson Reeder MA null, [facility] 03/06/2024 10:24:50 Do You Have An Advance Directive? Yes Registered 08/15/23 Updated 01/12/24 Information not available 01/15/2024 When Did You Quit Smoking? 11-15years sincelastc igarette [email or web address] Information not available 03/06/2024 Do You Have A Medical Power Of Director Zone? Yes Received 08/30/23, Scanned. Copies Sent To [facility] And Patient 09/02/23. Information not available 09/02/2023 What Was The Date Of Your Most Recent Tobacco Screening? 03/06/2024 [email or web address] Information not available 03/06/2024 What Is Your Current Pack Years? 30ormorepa ckyears [email or web address] Information not available 03/06/2024 How Much Tobacco Do You Smoke? 1 PPD [email or web address] Information not available 03/06/2024 How Many Years Have You Smoked Tobacco? 40 [email or web address] Information not available 03/06/2024 Do You Or Have You Ever Used Any Other Forms Of Tobacco Or Nicotine? No [email or web address] Information not available 03/06/2024 Sex: Male Functional [...] Recorded Time Tdap 08/26/2013 [facility] 05[facility]30[facility] Td(adult) unspecified formulation 11/21/2022 completed Not Available [facility] 10/18/2023 05:30:17 COVID-19, mRNA, LNP-S, PF, 100 mcg/0.5mL dose or 50 mcg/0.25mL dose 01/24/2021 completed Not Available [facility] 10/18/19 05:30:18 COVID-19, mRNA, LNP-S, PF, 100 mcg/0.5mL dose or 50 mcg/0.25mL dose 02/21/2021 completed Not Available [facility] 10/18/19 05:30:18 COVID-19, mRNA, LNP-S, PF, 100 mcg/0.5mL dose or 50 mcg/0.25mL dose 09/11/2021 completed Not Available [facility] 10/18/19 05:30:18 influenza, unspecified formulation 07/26/2021 completed Not Available [facility] 10/18/2023 05:30:18 influenza, unspecified formulation 07/26/2022 completed Not Available [facility] 10/18/2023 05:30:18 influenza, unspecified formulation 07/28/2020 completed Not Available [facility] 10/18/2023 05:30:18 influenza, unspecified formulation 08/05/2019 completed Not Available [facility] 10/18/2023 05:30:18 influenza, unspecified formulation 08/12/2018 completed Not Available [facility] 10/18/2023 05:30:18 Past Encounters Encounter ID Performer Location Encounter Start Date Encounter Closed Date Diagnosis/Indication Diagnosis SNOMED-CT Code [id number] TATYANA LEDEZMA MD [address] [address] 03/06/2024 10:15:07 03/06/2024 11:14:28 Postoperative visit 069292891 Aortic rosa m nosis, non-rheumatic 286858178 Stented co ronary artery 016077917 At [facility] risk of atrial fibrillation 528665067 Anemia 385470754 Health Concerns Section Related Observation LastModified by Organization Detai ls LastModified Time None Recorded Concern Status LastModified by Organization Details LastModified Time None Recorded Payers Encounter Date Sequence Insurance Name Policy Number Policy Alicia Covered Member ID Alicia Member ID Guarantor Name 03/06/2024 1 [facility] [id number] Karlos C Patenaude [id number] Karlos Jessica Patenaude Notes Date Note Type Note Provider Name and Address Organization Details Recorded Time 03/06/2024 text/html HPI Notes: Ana Paula marlow is here today for a postop evaluation TATYANA LEDEZMA MD [address], [place], [address], [facility]. 03/08/2024 13:57:34
--- OUTSIDE RECORDS SUMMARY | 2024-05-15 07:59 | XMS_ITS | Data Portability ---
Author Organization [place] - [facility] Address [address] [place] [address] Care Team Providers Care Tank Wagon Driver Name Role Phone VANESSA JORDAN Primary Care Provider Assessment No assessment recorded. Plan of Treatment Reminders Order Date Submit Date Provider Last Modified By Organization Details Last Modified Time Details Appointments None recorded . Lab magnesiu m, serum or plasma 024 12/18/19 24 [facility] (Registration ), [address] [place] [address] [place], [address], 4 14:25:25 BMP, serum or plasma 024 12/18/19 24 [email or web address] [facility] (Registration ), [address] [place] [address] [place], [address], 4 14:25:24 Referral None recorded . Procedures None recorded . Surgeries None recorded . Imaging None recorded . Medication Orders None recorded . Patient TargetsNo targets recorded. Patient Instructions Encounter Date Encounter Id Patient Instructions Last Modified By Organization Details Last Modified Time 09/19/2023 [id number] SCHEDULE FOLLOW UP IN 3 MONTHS IF YOU DONT HEAR FROM THE CARDIOLOGY DEPT THIS WEEK CALL [facility] AND LET THEM KNOW IF YOUR BREATHING GETS WORSE- GO TO THE ER, DONT OVER DO THINGS PHYSICALLY EXPECT A CALL FROM SARA ZAFAR RE: UPDATING YOUR POWER OF COMMUNICATIONS AND SIGNALS SUPERVISOR (NEED 2 WITNESSED SIGNATURES) Not available 09/19/2023 09:25:07 12/18/2023 [id number] Karlos: expect a call from the STructural heart team at [facility] drink at least 6 glasses of water a day. checking kidney function and magnesium labs today will mail home. follow up in 3 months for BPH, Aortic stenosis. 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 for Referral Top Lift Trimmer Referral for Roland ateral hearing loss Referring Physician: Vanessa Jordan, Family Medicine, Encounter Date: 02/26/2024 Results Created Date Observation Date Name Description Value Unit Range Abnormal Flag LastModifiedBy Organization Detail LastModifiedTime 12/18/1912/18/2023 LASIC METAB OLIC PANEL calcium 9.3 mg/dL 8.5-10 .1 normal Not Available [address] [place], [address] 12/18/2023 17:09:55 12/18/1912/18/2023 LASIC METAB OLIC PANEL glucose 90 mg/dL 74-106 normal Not Available [address] [place], [address] 12/18/2023 17:09:55 12/18/19 24 12/18/2023 LASIC METAB OLIC PANEL BUN 14 mg/dL 7-18 normal Not Available [address] [place], [address] 12/18/2023 17:09:55 12/18/19 24 12/18/2023 LASIC METAB OLIC PANEL creatinine 1.0 mg/dL 0.70-1 .30 normal Not Available [address] [place], [address] 12/18/2023 17:09:55 12/18/19 24 12/18/2023 LASIC METAB OLIC PANEL estimated GFR 84.05 mL/min /1.73m 2 Not Available [address] [place], [address] 12/18/2023 17:09:55 12/18/19 24 12/18/2023 LASIC METAB OLIC PANEL sodium 139 mmol/ L 136-14 5 normal Not Available [address] [place], [address] 12/18/2023 17:09:55 12/18/19 24 12/18/2023 LASIC METAB OLIC PANEL potassium 4.9 mmol/ L 3.5-5. 1 normal Not Available [address] [place], [address] 12/18/2023 17:09:55 12/18/19 24 12/18/2023 LASIC METAB OLIC PANEL chloride 104 mmol/ L 98-107 normal Not Available [address] [place], [address] 12/18/2023 17:09:55 12/18/19 24 12/18/2023 LASIC METAB OLIC PANEL CO2 30.9 mmol/ L 21.0-3 2.0 normal Not Available [address] [place], [address] 12/18/2023 17:09:55 12/18/19 24 12/18/2023 LASIC METAB OLIC PANEL anion gap 4.1 mmol/ L 3-11 normal Not Available [address] [place], [address] 12/18/2023 17:09:55 12/18/19 24 12/18/2023 MAGNE SIUM magnesium 1.8 mg/dL 1.8-2. 4 normal Not Available [address] [place], [address] 12/18/2023 17:09:56 09/11/2012/05/2022 trans -thor acic echoc ardio gram (TTE) (PROC ) No observ ation record ed. [email or web address] [facility] Xray [address] , [place], [address], 09/13/2023 09:29:52 09/11/20 23 06/01/2022 XR, hip, unila teral No observ ation record ed. [email or web address] Not Available 09/13/2023 09:29:19 09/11/20 23 12/06/2019 US, echoc ardio gram No observ ation record ed. [email or web address] [facility]- Cardiology [address] [place] [address] [place], [address], 09/13/2023 09:28:49 Result Notes None recorded. Problems Name Status Onset Date Resolution Date Notes Provider Name and Address Organization Details Recorded Time Gastroesophageal reflux disease without esophagitis Active 2022 Problem Code: K21.9; Problem Code Type: ICD-10; Not Available [facility] 4 05:35:57 Glaucoma Active 2022 Problem Code: H40.9; Problem Code Type: ICD-10; Not Available [facility] 4 05:35:57 Hyperlipidemia Active 2022 Problem Code: E78.5; Problem Code Type: ICD-10; Not Available [facility] 4 05:35:57 Essential hypertension Active 2022 Problem Code: I10; Problem Code Type: ICD-10; Not Available [facility] 4 05:35:57 Pain of left hip joint Active 2022 Problem Code: M25.552; Problem Code Type: ICD-10; Not Available [facility] 4 05:35:57 Idiopathic osteoarthritis Active 2022 Problem Code: M16.12; Problem Code Type: ICD-10; Not Available [facility] 4 05:35:57 Inguinal hernia Active 2022 Problem Code: K40.90; Problem Code Type: ICD-10; Not Available [facility] 4 05:35:57 Heart murmur Active 2022 Problem Code: R01.1; Problem Code Type: ICD-10; Not Available [facility] 4 05:35:57 Dyspnea Active 2022 Problem Code: R06.09; Problem Code Type: ICD-10; Not Available [facility] 4 05:35:57 Chest pain Active 2022 Problem Code: R07.89; Problem Code Type: ICD-10; Not Available [facility] 4 05:35:57 Melanocytic nevus Active 2022 Problem Code: D22.9; Problem Code Type: ICD-10; Not Available [facility] 4 05:35:57 Aortic stenosis, non-rheumatic Active 2022 Problem Code: I35.0; Problem Code Type: ICD-10; Not Available [facility] 4 05:35:58 Aortic stenosis, non-rheumatic Completed 202208/14/2023 Problem Code: I35.0; Problem Code Type: ICD-10; Not Available [facility] 4 05:35:58 Indigestion Active 2023 GLORIA CAMP LPN null, [facility] 4 08:48:57 Coronary artery bypass grafts x 3 Active 2023 Kelly Duran RN null, [facility] 4 10:30:01 At increased risk of atrial fibrillation Active [address], [facility] [address] , [facility] 4 13:52:01 Anemia Active [address], [facility] [address] [facility] 4 13:54:39 Problem Notes None recorded. Procedures Surgical History Date Name Laterality Status Provider Name and Address Organization Details Recorded Time 4 coronary artery bypass graft completed Hudson Reeder MA null, [facility] 03/04/2024 14:54:09 Imaging Results Imaging Date Name Status LastModified by Organization Details LastModified Time 12/05/2022 trans-thoracic echocardiogram (TTE) (PROC) completed [address] Xray [address], [place], [address], 09/13/2023 09:29:52 06/01/2022 XR, hip, unilateral [place] [address] Information not available 09/13/2023 09:29:19 12/06/2019 US, echocardiogram completed [address]- Cardiology [address] [facility] , [place], [address], 09/13/2023 09:28:49 Procedure Notes None recorded. Medical [...] es. Take 1 hr prior. Started by [facility]. Not Available Not Available Not Available doxycycli [...] BY MOUTH DAILY 02/24 completed stopped by [facility] Not Available Not Available Not Available brimonidi [...] hours by oral route as needed. active [facility] Not Available Not Available No t Available Aspirin Childrens 81 mg chewable tablet Take 1 tablet by mouth once a day active Not Available Not Available No t Available lisinopri l 5 mg tablet TAKE 1 TABLET BY MOUTH EVERY DAY 02/24 completed stopped by [facility] Not Available Not Available Not Available mupirocin [...] day by oral route. active started by [facility] Not Available Not Available Not Available dorzolami de 2 % (PF) eye drops 1 drop both eyes bid 12/17 completed Not Available Not Available Not Available Vitals Date Recorded Body weight Body mass index (BMI) Body height Heart rate Systolic blood pressure Diastolic blood pressure Provider Name and Address Organization Details Last Updated DateTime 3 40009.7 8 g 23.7 kg/m2 167.64 cm 64 /min 110 mm[Hg] 60 mm[Hg] GLORIA CAMP LPN [facility] 3 08:48:49 Date Recorded Body height Body mass index (BMI) Body weight Heart rate Systolic blood pressure Diastolic blood pressure Provider Name and Address Organization Details Last Updated DateTime 4 167.64 cm 24.6 kg/m2 67778.4 4 g 60 /min 112 mm[Hg] 80 mm[Hg] GLORIA CAMP LPN [facility] 4 08:38:13 Date Recorded Body height Body mass index (BMI) Body weight Heart rate Oxygen saturation Oxygen saturation in Arterial blood by Pulse oximetry Systolic blood pressure Diastolic blood pressure Provider Name and Address Organization Details Last Updated DateTime 4 167.64 cm 22.6 kg/m2 04487.6 5 g 63 /min 99 % 99 % 102 mm[Hg] 54 mm[Hg] Hudson Reeder MA [facility] 4 10:27:28 Social History Question Answer Notes LastModified by Organizat ion Details LastModified Time Tobacco Smoking Status Former Smoker Hudson Reeder MA [facility], [place] - [facility]. 03/06/2024 10:24:50 Do You Have An Advance Directive? Yes Registered 08/15/23 Updated 01/12/24 Information not available 01/15/2024 When Did You Quit Smoking? 11-15years sincelastc igarette [email or web address] Information not available 03/06/2024 Do You Have A Medical Power Of Resident Intern? Yes Received 08/30/23, Scanned. Copies Sent To [facility] And Patient 09/02/23. Information not available 09/02/2023 What Was The Date Of Your Most Recent Tobacco Screening? 03/06/2024 [email or web address] Information not available 03/06/2024 What Is Your Current Pack Years? 30ormorepa ckyears [email or web address] Information not available 03/06/2024 How Much Tobacco Do You Smoke? 1 PPD [email or web address] Information not available 03/06/2024 How Many Years Have You Smoked Tobacco? 40 Information not available 03/06/2024 Do You Or Have You Ever Used Any Other Forms Of Tobacco Or Nicotine? No [email or web address] Information not available 03/06/2024 Sex: Male Functional [...] Recorded Time Tdap 08/26/2013 [facility] 05[facility] Td(adult) unspecified formulation 11/21/2022 completed [facility] 10/18/2023 05:30:17 COVID-19, mRNA, LNP-S, PF, 100 mcg/0.5mL dose or 50 mcg/0.25mL dose 01/24/2021 completed Not Available [facility] 10/18/19 05:30:18 COVID-19, mRNA, LNP-S, PF, 100 mcg/0.5mL dose or 50 mcg/0.25mL dose 02/21/2021 completed Not Available [facility] 10/18/19 05:30:18 COVID-19, mRNA, LNP-S, PF, 100 mcg/0.5mL dose or 50 mcg/0.25mL dose 09/11/2021 completed Not Available [facility] 10/18/19 05:30:18 influenza, unspecified formulation 07/26/2021 completed Not Available [facility] 10/18/2023 05:30:18 influenza, unspecified formulation 07/26/2022 completed Not Available [facility] 10/18/2023 05:30:18 influenza, unspecified formulation 07/28/2020 completed Not Available [facility] 10/18/2023 05:30:18 influenza, unspecified formulation 08/05/2019 completed Not Available [facility] 10/18/2023 05:30:18 influenza, unspecified formulation 08/12/2018 completed Not Available [facility] 10/18/2023 05:30:18 Past Encounters Encounter ID Performer Location Encounter Start Date Encounter Closed Date Diagnosis/Indication Diagnosis SNOMED-CT Code [id number] VANESSA JORDAN [address] [address] 09/19/2023 08:39:51 09/19/2023 09:17:42 Aortic valve stenosis 26642394 Essential hypertension 82844759 [id number] VANESSA JORDAN [address] [address] 12/18/2023 08:23:47 12/18/2023 09:29:09 Aortic stenosis, non-rheumatic 640361381 Essential hypertension 49435711 Nonulcer dyspepsia 51692 07 Cramp in lower leg 44493 9150 [id number] TATYANA LEDEZMA MD [address] [address] 03/06/2024 10:15:07 03/06/2024 11:14:28 Postoperative visit 809299618 Aortic rosa m nosis, non-rheumatic 954321624 Stented co ronary artery 137851598 At [facility] risk of atrial fibrillation 770335404 Anemia 812007894 Health Concerns Section Related Observation LastModified by Organization Detai ls LastModified Time None Recorded Concern Status LastModified by Organization Details LastModified Time None Recorded Advance Directives Directive Y: Registered 08/15/23Updated 01/12/24 Payers Encounter Date Sequence Insurance Name Policy Number Policy Alicia Covered Member ID Alicia Member ID Guarantor Name 12/18/2023 1 [facility] [id number] Karlos C Patenaude [id number] Karlos C Patenaude 03/06/2024 1 [employer] [id number] Kalros C Patenaude [id number] Karlos C Patenaude Notes Date Note Type Note Provider Name and Address Organization Details Recorded Time 09/19/2023 text/html HPI Notes: 63-year-old man here for follow-up hypertension, severe aortic stenosis., He works full-time at [employer]. He lives at home with his dog. He has not heard from [facility] cardiology? referred mid-August. He did decrease his lisinopril to 5 mg, home SBPs running 110- 138, no change in slight lightheadedness with change position. He does continue to get dyspnea on exertion, denies chest pain, resolves fairly quickly no peripheral edema. 12/05/2022 [facility] transthoracic echocardiogram; there is moderate to severe aortic stenosis with disparate indicators. The calculated valve area is 0.8 cm2 is consistent with severe stenosis. Planimetry confirms valve area to 0.9 cm2. The mean gradient of 28 mmHg and peak velocity of 3.6M/S are consistent with moderate stenosis. There is trivial to mild aortic insufficiency. VANESSA JORDAN, AMRITA [address], [place], [address], [facility]. 09/19/2023 13:31:38 12/18/2023 text/html HPI Notes: 63-year-old man here for follow-up hypertension, severe aortic stenosis., He works full-time at [employer]. He lives at home with his dog. 12/05/2022 [facility] transthoracic echocardiogram; there is moderate to [...] coffee. VANESSA JORDAN, AMRITA [address], [place], [address], [facility]. 12/18/2023 11:43:00 03/06/2024 text/html HPI Notes: Ana Paula marlow is here today for a postop evaluation TATYANA LEDEZMA MD [address], [place], [address], [facility], [facility]. 03/08/2024 13:57:34
--- OUTSIDE RECORDS SUMMARY | 2024-05-20 09:06 | XMS_ITS | Encounter Summary ---
Author Organization [facility] Address [address] [place] [address] Care Team Providers Care Outsole Paraffiner Name Role Phone Vanessa Christian Lane MONCADA Primary Care Provider [phone] Encounter Details Date Type Department Care Team (Late st Contact Info) Description 10/24/[address] [facility] Pathology & Laboratory Medicine - [address] [address] Oscar Nichole MD [address] [place] [address] [phone] Factitial dermatitis Social History Tobacco Use Types [...] management options, if applicable. 10/28/2023 11:24 EST [facility] Final Diagnosis A. SKIN OF RESTORATION, LEFT, SHAVE BIOPSY: - Seborrheic keratosis, pigmented. 10/28/2023 11:24 EST [facility] Attestation By the signature below, the attending physician certifies that they have 1) personally conducted a gross and/or microscopic examination of the described specimen(s), and/or personally interpreted the results of laboratory testing of the described specimen(s), and 2) personally rendered or confirmed the above diagnosis. 10/28/2023 11:24 [facility] at [address] Microscopic Description The stratum corneum is thickened by compact and basketweave orthokeratosis with formation of horn pseudocysts. The epidermis is acanthotic with formation of broad and anastomosing trabeculae. The trabeculae are composed of basaloid keratinocytes with round uniform nuclei. The keratinocytes have a variable amount of melanin pigment. 10/28/2023 11:24 [facility] Clinical History Pigmented 2 cm patch; clinical diagnosis code: L98.1 10/28/2023 11:24 [facility] Gross Description A. Received in formalin labelled with proper patient identification (initials P, A) and left latter-day is a shave biopsy of an irregular [...] A3. Nora Anderson 10/25/2023 8:47 10/28/2023 11:24 [facility] Performing Lab [facility] 10/28/2023 11:24 [facility] Scanned Images 10/28/2023 11:24 [facility] Tissue SPECIMEN FROM SKIN / Unknown 10/24/2023 14:30 EST 10/24/2023 22:04 EST Oscar Nichole MD PATHOLOGY ORDERABLES [facility] [address] [place] [address] documented in this encounter Visit Diagnoses Diagnosis Factitial dermatitis Dermatitis factitia (artefacta) documented in this encounter Care Teams Outsole Paraffiner Relationship Specialty Start Date End Date Vanessa Christian NP [address] [place] [address] PCP - General Family Medicine - Primary Care 10/07/23 documented as of this encounter
--- OUTSIDE RECORDS SUMMARY | 2024-05-20 09:06 | XMS_ITS | Clinical Summary ---
Author Organization [facility] Address [address] [place] [address] Care Team Providers Care Cabin Cleaning Supervisor Name Role Phone Vanessa Christian NP Primary Care Provider [phone] Social History Tobacco Use Types Packs/Day Years [...] COVID-19 Vaccine (2022-24 season) 2023 Care Teams Cabin Cleaning Supervisor Relationship Specialty Start Date End Date Vanessa Christian NP [address] [place] [phone] PCP - General Family Medicine - Primary Care 10/07/23
--- OUTSIDE RECORDS SUMMARY | 2024-05-20 09:06 | XMS_ITS | Referral Summary ---
Author Organization [facility] Address [address] [place] [address] Care Team Providers Care Land Agent Name Role Phone Filidayna Vanessa Sherman NP Primary Care Provider [phone] Social History Tobacco Use Types Packs/Day Years Used Date Smoking Tobacco: Never Assessed Sex and Gender Information Value Date Recorded Sex Assigned at Not on file Gender Identity Not on file Sexual Orientation Not on file Plan of Treatment Not on file Care Teams Land Agent Relationship Specialty Start Date End Date Vanessa Christian NP [address] [place] [address] PCP - General Family Medicine - Primary Care 10/07/23
--- OUTSIDE RECORDS SUMMARY | 2024-05-20 09:07 | XMS_ITS | Encounter Summary ---
Author Organization [facility] Address [facility] [place] [address] Care Team Providers Care Personal Counselor Name Role Phone Vanessa Christian RETAIL CLIENT SOLUTIONS ANALYST Primary Care Provider [phone] Encounter Details Date Type Department Care Team (Late st Contact Info) Description 03/12/2024 2:40 PM EDT Office [place] [id number] Zak Farmer MD [facility] [place] [address] Coronary artery disease, unspecified vessel or lesion type, unspecified whether angina present, unspecified whether solomon or transplanted heart Social History Tobacco Use Types Packs/Day Years Used Date Smoking Tobacco: Former Cigarettes Smokeless Tobacco: Never Comments:Quit 15 + years ago Alcohol Use Standard Drinks/Week Comments Yes 0 (1 standard drink = 0.6 oz pur e alcohol) rare [facility] Utilities Answer Date Recorded In the past 12 months has e [employer], gas, oil, or water [employer] threatened to shut off services in your [...] 2:40 PM EDT To: MD Vanessa Coles, RETAIL CLIENT SOLUTIONS ANALYST Re; Karlos Santa ( 1960) We had [...] office. Best personal regards, Zak Farmer MD [phone] documented in this encounter Plan of Treatment Upcoming Encounters Date Type Department Care Team (Late st Contact Info) Description 05/27/2024 11:00 AM EDT Office Visit Cardiology at [address] [place] [address] Neftali Ernandez MD [facility] [place] [address] documented as of this encounter Procedures Procedure Name Priority Date/Time Associated Diagnosis Comments EKG 12-LEAD Routine 03/12/2024 2:35 PM EDT Coronary artery disease, unspecified vessel or lesion type, unspecified whether angina present, unspecified whether solomon or transplanted heart documented in this encounter Results * EKG 12 Lead (03/12/2024 2:35 PM EDT) Ventricular rate 59 BPM MUSE SYSTEM Atrial Rate 59 BPM MUSE SYSTEM P-R Interval 190 ms MUSE SYSTEM QRS Duration 92 ms MUSE SYSTEM Q-T Interval 406 ms MUSE SYSTEM QTC Calculated (Bezet) 401 ms MUSE SYSTEM Calculated P [place] -12 degrees MUSE SYSTEM Calculated R [place] 24 degrees MUSE SYSTEM Calculated T [place] 74 degrees MUSE SYSTEM INTERPRETATION Sinus bradycardia T wave abnormality, consider anterior ischemia Abnormal ECG When compared with ECG of 17-FEB-2024 13:24, DE interval has decreased T wave inversion now evident in Anterior leads Confirmed by Paul Guzman ([id number]) on 03/15/2024 8:36:23 AM MUSE SYSTEM 03/12/2024 2:35 PM EDT 03/15/2024 8:36 AM EDT Zak Farmer MD ECG ORDERABLES MUSE SYSTEM documented in this encounter Visit Diagnoses Diagnosis Coronary artery disease, unspecified vessel or lesion type, unspecified whether angina present, unspecified whether solomon or transplanted heart documented in this encounter Care Teams Personal Counselor Relationship Specialty Start Date End Date Vanessa Christian, MAURI PCP - General Family Medicine 10/21/23 documented as of this encounter
--- OUTSIDE RECORDS SUMMARY | 2024-05-20 09:07 | XMS_ITS | Encounter Summary ---
Author [facility] Address [facility] [place] [address] Care Team Providers Care Furniture Refinisher Name Role Phone Gino Vanessa Lane DOTSON Primary Care Provider [phone] Encounter Details Date Type Department Care Team (Late st Contact Info) Description 02/24/2024 Orders Only Cardiac Surgery [facility] [place] [phone] Trudi Lester APRN [facility] [place] [address] Social History Tobacco Use Types Packs/Day Years Used Date Smoking Tobacco: Former Cigarettes Smokeless Tobacco: Never Comments:Quit 15 + years ago Alcohol Use Standard Drinks/Week Comments Yes 0 (1 standard drink = 0.6 oz pur e alcohol) rare [facility] Utilities Answer Date Recorded In the past 12 months has e [employer], gas, oil, or water [employer] threatened to shut off services in your [...] 11:00 AM EDT Office Visit Cardiology at [address] [place] [address] Neftali Ernandez MD [facility] [place] [address] documented as of this encounter Visit Diagnoses Not on filedocumented in this encounter Care Teams Furniture Refinisher Relationship Specialty Start Date End Date Vanessa Christian APRN PCP - General Family Medicine 10/21/23 documented as of this encounter
--- OUTSIDE RECORDS SUMMARY | 2024-05-20 09:07 | XMS_ITS | Encounter Summary ---
[place] [address] Care Team Providers Care Stockholder Name Role Phone Aparna Jordan MAURI Primary Care Provider [phone] Reason for Referral * Diagnostic Test (Routine) - New Request Specialty Diagnoses / Procedures Referred By Contac t Referred To Contact Cardiology Diagnoses S/P AVR Procedures Echocardiogram Transthoracic Neftali Menon PA [facility] [place] [address] [facility] [place] [address] Referral ID Status Reason Start Date Expiration Date Visits Requested Visits Authorized [id number] New Request Specialty Service Requested 02/24/2024 02/23/2025 1 1 * Consultation (Routine) - Authorized Specialty Diagnoses / Procedures Referred By Contac t Referred To Contact Cardiology Diagnoses S/P AVR Zak Graham MD [facility] [place] [address] Cardiac Rehab, [facility] [address] [place] [address] [place] [address] Referral ID Status Reason Start Date Expiration Date Visits Requested Visits Authorized [id number] Authorized Consult, Test & Treat 02/24/2024 08/22/2024 36 36 * Home Health Care (Routine) - Authorized Specialty Diagnoses / Procedures Referred By Sixto mendoza Referred To Contact Diagnoses S/P AVR Zak Graham MD [facility] [place] [address] Referral ID Status Reason Start Date Expiration Date Visits Requested Visits Authorized [id number] Authorized Consult, Test & Treat 02/24/2024 08/22/2024 [...] ARTERIAL GRAFT (WRVU 7.93) Zak Graham MD [facility] [place] [address] [facility] Referral ID Status Reason Start Date Expiration Date Visits Re quested Visits Authorized [id number] 1 1 Encounter Details Date Type Department Care Team (Latest Contact Info) Description 02/17/2024 5:43 AM EDT - 02/24/2024 11:23 AM EDT Hospital Encounter Heart and Vascular Unit Level 4 [place] [address] Zak Graham MD [facility] [place] [address] S/P AVR (Primary Dx); Aortic valve stenosis, etiology of cardiac valve disease unspecified Discharge Disposition: Home with VNA Social History Tobacco Use Types Packs/Day Years Used Date Smoking Tobacco: Former Cigarettes Smokeless Tobacco: Never Comments:Quit 15 + years ago Alcohol Use Standard Drinks/Week Comments Yes 0 (1 standard drink = 0.6 oz pur e alcohol) rare [facility] Utilities Answer Date Recorded In the [...] place to sleep or slept in a senior living (including now)? No 02/18/2024 DH IPV Inpatient [...] Patient Age: 63 y.o. Birthdate: 1960 Language: Monegasque Race: White Ethnicity: Not nor Admit Date: 02/17/2024 Discharge Date: 02/24/24 Attending Physician: Zak Graham MD Follow-up Recommendations for Providers: Please continue routine management of cardiovascular risk factors including blood pressure, lipids,glucose, etc. Please note any changes to medications. Patient to follow up with PCP, Aparna Jordan APRN, in 1-2 weeks. Patient to follow up with Security Field Supervisor, Neftali Ernandez MD , in 2 weeks. Patient to follow up with Cardiac Surgeon, Dr. Zak Graham, with a chest x-ray, EKG, and Echo. 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 Right christian Past Surgical History: Procedure Laterality Date PRO CABG, ARTERIAL, SINGLE N/A 02/17/2024 @CABG, USING ARTERIAL GRAFT;SINGLE ARTERIAL GRAFT (WRVU 33.75) performed by Zak Graham MD at [facility] MAIN OR PRO CABG, ARTERY-VEIN, TWO N/A 02/17/2024 @CABG, TWO VENOUS GRAFTS & ARTERIAL GRAFT (WRVU 7.93) performed by Zak Graham MD at [facility] MAIN OR PRO ENDOSCOPY W/VIDEO-ASST VEIN HARVEST, CABG Left 02/17/2024 ENDOSCOPIC HARVEST VEIN(S) FOR CABG (WRVU 0.31) performed by Zak Graham MD at [facility] MAIN OR PRO REPLACEMENT PROSTHETIC AORTIC VALVE OPEN W CARDIOPULMONARY BYPASS HOMOGRF/STENT N/A 02/17/2024 @REPLACE AORTIC VALVE, OPEN, W\CPB, W\PROSTHETIC VALVE (WRVU 41.32) performed by Zak Graham MD at [facility] MAIN OR Prior To Admission [...] insufficiency. He has glaucoma. He used to [employer] until about 15 years ago. He has undergone prior herniorrhaphy. 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 Major Procedures/Operations: 02/17/24 s/p avr/cabgx3 CABG x 3 JOSE->LAD SVG->dRCA SVG->OM1 EVH from LLE AVR with a 23 mm Inspiris Bioprosthesis Hospital Course: Viraj Garcia was admitted to [facility] on 02/17/2024 via the Same [...] Zak Graham and/or the Cardiac Surgery Physician Youth Director Team may be reached at . Antibiotic [...] Please refer to the card with the [place] Heart [employer] Guidelines for more information. You [...] Dr. Zak Graham. You may use a [place] Track or treadmill but avoid any pulling [...] friends, go to a movie, go to yarsani, etc. Heavy activities: No hunting, skiing, jogging, [...] should resume a low fat, low cholesterol, [place] Heart Association Diet. Driving: No driving until [...] while being managed by your PCP and/or Security Field Supervisor. For future medication refills, please refer to your PCP and/or Security Field Supervisor after your discharge from our service. Thank you REMOVE CHEST TUBE SUTURES ON OR AFTER 03/02/24 Home oxygen therapy: N/A Follow up appointments: You should follow up with your PCP, Aparna Jordan APRN, in 1-2 weeks. Our office will schedule an appointment with your Security Field Supervisor, Neftali Ernandez MD , in 2 weeks. You have an appointment with your Cardiac Surgeon, Dr. Zak Graham, 4 weeks with a chest x-ray, EKG, and Echo before your appointment. Cardiac Rehabilitation: Viraj Garcia was seen regarding participation in the outpatient Phase 2Cardiac Rehabilitation at [facility]. The patient agrees to a referral to this program. The referral will be sent at discharge and the patient should be contacted by the Program within 1- 2 weeks from discharge. Future Appointments and Orders Future Orders Complete By Expires Echocardiogram Transthoracic [07417 CPT(R)] 03/26/2024 09/25/2024 Process Instructions: Scheduling Instructions: Questions: Where will study be performed?: [facility] Clinics Does the patient have Congenital Heart Disease?: Does patient require sedation?: Sedation rationale: XR Chest PA & Lateral (Generic) [67285 39814 Custom] 03/26/2024 09/25/2024 Process Instructions: Scheduling Instructions: Questions: Portable exam?: Reason for exam and clinical history: s/p avr/cabg Clinical information / jerome questions for radiologist: Stat read required?: Date of injury if applicable: Requested Time: Where will study be performed?: [facility] Radiology Referral to Cardiac Rehab [SPC894 Custom] As directed Process Instructions: If no progress note charted, please enter Clinical details in comments. Scheduling Instructions: Questions: My question or request is: s/p AVR/CABG. Cardiac rehab at [facility]. Referral to Home Health [REF34 Custom] As directed Process Instructions: If no progress note charted, please enter Clinical details in comments. Scheduling Instructions: Comments: Please evaluate Viraj Garcia for admission to Home Health. [address] Phone Number: Date of : 1960 Inpatient DOCUMENTATION FOR VNA SERVICES (INCLUDING THOSE PATIENTS WITH MEDICARE COVERAGE REQUIRING HOME VNA SERVICES AND/OR HOSPICE SERVICES) PATIENT'S LOCATION: Viraj Garcia [address] [employer] [phone] Pearl Fisherman's Name: self/family In discussion with the attending physician, it is certified that this patient is under their care and that they, or a Nurse Practitioner, or Physician Youth Director who is working directly with them, hada [...] for services as follows: HOME HEALTH AGENCY: [facility] [address] [place] [address] RN orders: Cardiopulmonary assessment, incisional assessment, assess [...] issues please call the Cardiology Office at [phone] FOR MEDICARE ONLY: (please delete this section [...] APRN [address] / [place] [address] . All VNA agencies which cover the area of patient's residence have been reviewed, either verbally or in writing, and patient/family have chosen the home health care agency noted. Questions: Disciplines Requested: Nursing Physical Therapy Arrangements for VNA/home care: As above. Signed: NEFTALI MENON PA-C [facility] Section of Cardiac Surgery [facility] [place] [address] FAX [phone] Date: 02/24/2024 CC: Aparna Jordan, MAURI Jordan, Aparna Sherman APRN [address] [place] [address] documented in this encounter Discharge Instructions * [...] Zak Graham and/or the Cardiac Surgery Physician Youth Director Team may be reached at . Antibiotic [...] Please refer to the card with the [place] Heart Association Guidelines for more information. You [...] Dr. Zak Graham. You may use a [place] Track or treadmill but avoid any pulling [...] friends, go to a movie, go to yarsani, etc. Heavy activities: No hunting, skiing, jogging, [...] should resume a low fat, low cholesterol, [place] Heart Association Diet. Driving: No driving until [...] while being managed by your PCP and/or Security Field Supervisor. For future medication refills, please refer to your PCP and/or Security Field Supervisor after your discharge from our service. Thank you REMOVE CHEST TUBE SUTURES ON OR AFTER 03/02/24 Home oxygen therapy: N/A Follow up appointments: You should follow up with your PCP, Aparna Jordan APRN, in 1-2 weeks. Our office will schedule an appointment with your Security Field Supervisor, Neftali Ernandez MD , in 2 weeks. You have an appointment with your Cardiac Surgeon, Dr. Zak Graham, 4 weeks with a chest x-ray, EKG, and Echo before your appointment. Cardiac Rehabilitation: Viraj Garcia was seen regarding participation in the outpatient Phase 2Cardiac Rehabilitation at [facility]. The patient agrees to a referral to [...] 0600 and on the weekends please page [phone]. * Eric Barahona PA - 02/23/2024 9:27 [...] 0600 and on the weekends please page [phone]. * Tiffanie Owens - 02/22/2024 2:48 PM [...] d/c for 10 days. 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 * Kelley Hinson PTA - 02/21/2024 10:15 [...] d/c for 10 days. 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 * Kelley Hinson PTA - 02/20/2024 3:32 [...] at that time Kelley Hinson PTA Pager: [phone] Physical Therapy Inpatient Rehab Department * Louisa [...] 0600 and on the weekends please page [phone]. * Chrystal Benavides, PT - 02/19/2024 11:22 [...] d/c for 10 days. 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 Precautions/Special Considerations: STERNAL [...] outlined inthis evaluation. CHRYSTAL BENAVIDES, PT Pager: [phone] Physical Therapy Inpatient Rehabilitation Department Time IN / OUT: 9358-5773 Total Time: 38 (eval) minutes; * Antonio [...] 0600 and on the weekends please page [phone]. * Minnie Begum PA - 02/18/2024 8:25 [...] site CDI with KEVYN wrap Tubes/Lines/Drains: RIJ/PAC, [place], Med Ctx, L pleural CT, TPW, Naqvi [...] 0600 and on the weekends please page [phone]. * Kim Ha MAILMASTER - 02/17/2024 2:25 PM EDT Respiratory Care [...] plan since last visit. Zak Graham MD [phone] Source Note - Zak Graham MD - [...] given written informed consent. Zak Graham MD [phone] * Zak Graham MD - 02/17/2024 7:00 [...] given written informed consent. Zak Graham MD [phone] documented in this encounter Miscellaneous Notes * [...] information for follow-up Home Health & Hospice, [address] [place] [address] Cardiac Rehab, [address] [place] [address] Transportation: family or friend will provide Functional status prior to admission: Independent Home Environment: Others in the home: alone. Current Living Arrangements: home/apartment/condo. Accessibility Concerns:a few steps to enter 1 floor home. Current Functional Ability: Assistive Person and Equipment DME used at home: none DME Needed at Discharge: N/A Patient is insured through: Primary Insurance: [facility] Payor: [facility] / Plan: [facility] PPO / Product Type: *No Product [...] managed with scheduled Tylenol. 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 Ambulated in the roque multiple times during [...] anticipated Patient is insured through: Primary Insurance: [facility] Payor: [facility] / Plan: [facility] PPO / Product Type: *No Product type* / Secondary Insurance: N/A Last Physical Therapy Recommendation: home with home health (Str coming to stay for a week or two upon d/c) with to be determined (owns rolling walker, shower seat) Plan for discharge is: Home w/ Services Outpatient Agency/Support Group Needs: Homecare agency Home Health Services: Physical Therapy, Registered Nurse Agency Referrals: [facility] [address] [place] [id number] Transportation: family or friend will provide Barriers to discharge: Discharge planning Plan going forward: Service Care Management will continue to follow and assist with discharge planning and coordination of care as indicated. Anticipated Date of Discharge: 02/22/2024 Rhett Bell RN RN/CM - Cellphone: [phone] Pager: [phone] Covering Service RN/CM * Plan of Care [...] Yang RN - 02/19/2024 10:44 AM EDT [facility] CARDIAC REHABILITATION Viraj Garcia was seen today regarding participation in the outpatient Phase 2 Cardiac Rehabilitation at [facility]. The patient agrees to a referral to [...] Hypertension 08/14/2023 Nevus of face 09/26/2023 Right christian Hospitalizations Within the Past 30 Days: no previous admission in last 30 days Current Decision-Making Capacity: Self If AD's have not been completed the following surrogate would be surrogate decision maker per [place] surrogate decision making law. (Only good for 180 days) Any patient receiving care in [place] must abide by [place] law. The hierarchy [...] (i) The agent with financial power of personal injury attorney or a conservator appointed in accordance [...] steady place to sleep or slept in [facility] (including now)?: No In the past 12 months has the electric, gas, oil, or water [employer] threatened to shut off services in your [...] [address] [facility] [address] Physical address: [address] [facility], [address] Social & Family Supports: All names listed [...] Information: none noted Health/Prescription Coverage: Primary Insurance: [facility] Payor: [facility] / Plan: [facility] PPO / Product Type: *No Product type* / Secondary Insurance: N/A ; Prescription Coverage: Yes Preferred Pharmacy: [id number] [address] [place] Status: Patient is a : No Primary Care Provider confirmed: Aparna Jordan, MAURI [phone] Patient/Caregiver Goals of Treatment: dc to home Potential Needs for Transition of Care: home health care Agency Referrals: I have met with the patient to: discuss discharge planning needs. provide the [facility], Office of Care Management letter from the Creative Services Director pertaining to rehab referrals. provide a letter describing our affiliations within the [facility] and educate about their right to choose where referrals are sent. provide a list of Home Health Agencies / Durable Medical Equipment vendors which serve their preferred geographic area. provided patient with [facility] Star Quality Rating handout. They have requested referrals to: [facility] [address] [place] [address] Note routed to a Ski Patroller who will communicate referrals to facilities and [...] Reina Greene RN CM, BSN, CMGT-BC Ext [phone] * Plan of Care - Binta Trinidad [...] PM EDT Brief Operative Note Patient Name: Virja Garcia : [id number] MR#: [id number] Case Date: 02/17/2024 Surgeon: Surgeon(s) and Role: * Zak Garham MD - Primary * Neftali Menon PA - Physician Youth Director Preoperative diagnosis: CAD Postoperative diagnosis: CAD, intraoperative [...] mL Drains: Mediastinal and Left pleural Disposition: [facility] Condition: doing well without problems Attestation: Case Date: 02/17/2024 I performed this procedure without the involvement of a resident. ZAK GRAHAM MD 02/17/2024 * Op Note - Zak Graham MD - 02/17/2024 8:20 AM EDT [facility] Operative Note Patient Name: Viraj Garcia : [id number] MR#: [id number] Case Date: 02/17/2024 Surgeon: Surgeons and Role: * Zak Graham MD - Primary * Neftali Menon PA - Physician Youth Director Preoperative diagnosis: CAD Postoperative diagnosis: CAD, intraoperative [...] mL Drains: Mediastinal and Left pleural Disposition: [facility] Procedure Description: The patient was brought [...] AM EDT Office Visit Cardiology at [address] [id number] Neftali Ernandez MD [facility] [place] [address] Scheduled Orders Name Type Priority Associated Diagnoses [...] Aortic Valve Open W Cardiopulmonary Bypass Homogrf/Stent (32609) Yes 02/17/2024 7:28 AM EDT CAD Cabg, Artery-Vein, Two (14907) Yes 02/17/2024 7:28 AM EDT CAD Cabg, Arterial, Single (71873) Yes 02/17/2024 7:28 AM EDT CAD Endoscopy W/Video-Asst Vein [place], Cabg (45904) Yes 02/17/2024 7:28 AM EDT CAD POCT GLUCOSE Routine 02/17/2024 6:38 AM EDT TRANSESOPHAGEAL ECHOCARDIOGRAM IN THE OR Routine 02/17/2024 6:33 AM EDT Aortic valve stenosis, etiology of cardiac valve disease unspecified LAB SCAN 02/17/2024 12:00 AM EDT IMPLANTABLE DEVICES SCAN 02/17/2024 12:00 AM EDT documented in this encounter Results * Potassium (02/24/2024 4:42 AM EDT) Potassium 4.0 3.5 - 5.0 mmol/L [facility] Comment: Please note: ??Patients with WBC >100,000 may have falsely elevated Potassium levels. ??For accurate Potassium quantification in these patients send serum separator tube (gold top) for subsequent determinations. ??Contact the Clinical Chemistry Laboratory if there are any questions. Blood 02/24/2024 4:42 AM EDT 02/24/2024 4:59 AM EDT Narrative Resulting Agency Comment Spec In Lab Zak Graham MD CHEMISTRY ORDERABLE S [facility] [place] [address] * (ABNORMAL) Basic Metabolic Panel (non-fasting) (02/23/2024 4:24 AM EDT) Glucose 117 65 - 199 mg/dL [facility] Comment:Diabetes: >=200 mg/d L plus symptoms Blood Urea Nitrogen 18 10 - 20 mg/dL [facility] Creatinine 0.71(L) 0.80 - 1.50 mg/dL [facility] Sodium 138 135 - 145 mmol/L [facility] Potassium 4.4 3.5 - 5.0 mmol/L [facility] Comment: Please note: ??Patients with WBC >100,000 may have falsely elevated Potassium levels. ??For accurate Potassium quantification in these patients send serum separator tube (gold top) for subsequent determinations. ??Contact the Clinical Chemistry Laboratory if there are any questions. Chloride 101 98 - 107 mmol/L [facility] Carbon Dioxide 26 22 - 31 mmol/L [facility] Anion Gap 11 5 - 15 mmol/L [facility] Calcium 8.8 8.5 - 10.5 mg/dL [facility] Est Glomerular Filtration Rate 102 >=60 mL/min/1. 73 m?? [facility] Comment: This patient's estimated GFR [...] In Lab Romeo Carpio MD CHEMISTRY ORDERABLES [facility] [place] [address] * Potassium (02/22/2024 4:30 AM EDT) Potassium 3.5 3.5 - 5.0 mmol/L [facility] Comment: Please note: ??Patients with WBC >100,000 may have falsely elevated Potassium levels. ??For accurate Potassium quantification in these patients send serum separator tube (gold top) for subsequent determinations. ??Contact the Clinical Chemistry Laboratory if there are any questions. Blood 02/22/2024 4:30 AM EDT 02/22/2024 5:12 AM EDT Narrative Resulting Agency Comment Spec In Lab Zak Graham MD CHEMISTRY ORDERABLE S [facility] [place] [address] * (ABNORMAL) Basic Metabolic Panel (non-fasting) (02/21/2024 9:45 AM EDT) Glucose 123 65 - 199 mg/dL [facility] Comment:Diabetes: >=200 mg/d L plus symptoms Blood Urea Nitrogen 22(H) 10 - 20 mg/dL [facility] Creatinine 0.78(L) 0.80 - 1.50 mg/dL [facility] Sodium 140 135 - 145 mmol/L [facility] Potassium 3.9 3.5 - 5.0 mmol/L [facility] Comment: Please note: ??Patients with WBC >100,000 may have falsely elevated Potassium levels. ??For accurate Potassium quantification in these patients send serum separator tube (gold top) for subsequent determinations. ??Contact the Clinical Chemistry Laboratory if there are any questions. Chloride 100 98 - 107 mmol/L [facility] Carbon Dioxide Not Perf 22 - 31 [facility] Comment:Add-on request. Yolanda le too old to perform test. Anion Gap Unable to Calculate 5 - 15 mmol/L [facility] Calcium 8.6 8.5 - 10.5 mg/dL [facility] Est Glomerular Filtration Rate 100 >=60 mL/min/1 .73 m?? [facility] Comment: This patient's estimated GFR [...] Carpio MD CHEMISTRY ORDERABLES Performing Organization Address City/[facility]/ZIP Co de Phone Number [facility] [place] [address] * Lactate, whole blood, send to lab ([facility] [place] [place]) (02/21/2024 9:45 AM EDT) [facility] Lactate WB 2.0 0.5 - 2.2 mmol/L [facility] Blood 02/21/2024 9:45 AM EDT 02/21/2024 9:52 AM EDT Narrative Resulting Agency Comment Spec In Lab Zak Graham MD CHEMISTRY ORDERABLE S Performing Organization Address [facility] Co de Phone Number [facility] [place] [address] * (ABNORMAL) Hepatic Function Panel (02/21/2024 9:45 AM EDT) [facility] Protein, Total 5.7(L) 6.1 - 8.0 g/dL [facility] Albumin 3.3 3.2 - 5.2 g/dL [facility] Aspartate Aminotransferase 13 0 - 39 unit/L [facility] Alanine Aminotransferase 16 0 - 55 unit/L [facility] Alkaline Phosphatase 63 40 - 130 unit/L [facility] Bilirubin, Total 0.6 0.2 - 1.3 mg/dL [facility] Bilirubin, Direct 0.2 0.0 - 0.3 mg/dL [facility] Blood 02/21/2024 9:45 AM EDT 02/21/2024 9:52 AM EDT Narrative Resulting Agency Comment Spec In Lab Zak Graham MD CHEMISTRY ORDERABLE S [facility] [place] [address] * Lipase (02/21/2024 9:45 AM EDT) Lipase 56 0 - 60 unit/L [facility] Blood 02/21/2024 9:45 AM EDT 02/21/2024 9:52 AM EDT Narrative Resulting Agency Comment Spec In Lab Zak Graham MD CHEMISTRY ORDERABLE S [facility] [place] [address] * Amylase (02/21/2024 9:45 AM EDT) Amylase 69 28 - 100 unit/L [facility] Blood 02/21/2024 9:45 AM EDT 02/21/2024 9:52 AM EDT Narrative Resulting Agency Comment Spec In Lab Zak Graham MD CHEMISTRY ORDERABLE S Performing Organization Address [facility] [facility]/ZIP Co de Phone Number [facility] [place] [address] * Potassium (02/21/2024 3:08 AM EDT) Potassium 3.8 3.5 - 5.0 mmol/L [facility] Comment: Please note: ??Patients with WBC >100,000 may have falsely elevated Potassium levels. ??For accurate Potassium quantification in these patients send serum separator tube (gold top) for subsequent determinations. ??Contact the Clinical Chemistry Laboratory if there are any questions. Blood 02/21/2024 3:08 AM EDT 02/21/2024 3:28 AM EDT Narrative Resulting Agency Comment Spec In Lab Zak Graham MD CHEMISTRY ORDERABLE S [facility] [place] [address] * XR Chest PA & Lateral (Generic) (02/20/2024 10:19 AM EDT) WORKSTATION ID [id number] RAD Anatomical Region Laterality Modality Chest N/A Digital Radiogra phy Impressions 02/20/2024 1:11 PM EDT Small pleural effusions. No pneumothorax Thank you for letting us participate in the care of this patient. ??If you are a health care provider and have any questions regarding this report, please contact the number below. ??For patients who have questions please contact the health healthcare architect that requested your imaging first. ? Electronically signed by: Rogerio Cruz MD, [facility] ??([phone]), at 02/20/2024 1:11 PM Narrative 02/20/2024 1:11 PM EDT EXAMINATION: XR CHEST PA AND LATERAL (GENERIC) CLINICAL HISTORY: s/p AVR/CABGx3 TECHNIQUE: PA and lateral views of the chest COMPARISON: 02/17/2024 FINDINGS: Support devices: Interval removal of Armagh-Kaila catheter, endotracheal tube and mediastinal chest tubes The cardiac silhouette is stable status post median sternotomy, CABG and aortic valve replacement. There are small pleural effusions. No pneumothorax. Procedure Note Rogerio Cruz MD - 02/20/2024 EXAMINATION: XR CHEST PA AND LATERAL (GENERIC) CLINICAL HISTORY: s/p AVR/CABGx3 TECHNIQUE: PA and lateral views of the chest COMPARISON: 02/17/2024 FINDINGS: Support devices: Interval removal of Armagh-Kaila catheter, endotracheal tubeand mediastinal chest tubes The [...] who have questions please contactthe health healthcare architect that requested your imaging first. Electronically signed by: Rogerio Cruz MD, [facility]([phone]), at 02/20/2024 1:11 PM Zak Graham MD IMG DX ORDERABLES * Scan, Peripheral Blood (02/20/2024 4:23 AM EDT) Pathologist [facility] Plat estimate Decreased [facility] RBC Morphology Normal [facility] Blood 02/20/2024 4:23 AM EDT 02/20/2024 4:42 AM EDT Narrative Resulting Agency Comment Spec In Lab Minnie FRENCH HEMATOLOGY CECILIO ALEMAN [facility] [place] [address] * (ABNORMAL) Differential, Automated (02/20/2024 4:23 AM EDT) [facility] Neutrophil % 81.7 % [facility] Neutrophil Absolute 10.37(H) 1.70 - 6.10 x10(3)/mc L [facility] Lymph % 7.4 % [facility] Lymphocytes Abs 0.9 0.9 - 3.2 x10(3)/mc L [facility] Monocyte % 9.7 % [facility] Monocyte Abs 1.2(H) 0.3 - 0.9 x10(3)/mc L [facility] Eos % 0.1 % [facility] Eosinophils Abs 0.0 0.0 - 0.4 x10(3)/mc L [facility] Basophil % 0.2 % [facility] Baso Absolute 0.0 0.0 - 0.1 x10(3)/mc L [facility] Immature Gran % 0.90 % [facility] Comment: Immature granulocytes(IG's)percentage and absolute count will include metamyelocytes, myelocytes, and promyelocytes. Blood smears from CBCs yielding IG's will be scanned manually for concordance. If this scan disagrees with the automated IG or if promyelocytes are noted, a manual differential will be performed. Immature Gran Absolute 0.12(H) 0.00 - 0.04 x10(3)/ L [facility] Blood 02/20/2024 4:23 AM EDT 02/20/2024 4:42 AM EDT Narrative Resulting Agency Comment Spec In Lab Minnie FRENCH HEMATOLOGY CECILIO ALEMAN [facility] [place] [address] * (ABNORMAL) Hemogram (02/20/2024 4:23 AM EDT) White Blood Cell 12.7(H) 4.0 - 9.5 x10(3)/ L [facility] Red Blood Cell 4.26(L) 4.58 - 5.54 x10(6)/mc L [facility] Hemoglobin 12.3(L) 13.7 - 16.5 g/dL [facility] Hematocrit 37.1(L) 40.5 - 48.5 % [facility] Mean Cell Volume 87.1 82.9 - 93.1 fL [facility] Mean Cell Hemoglobin 28.9 27.5 - 32.1 pg [facility] Mean Cell Hemoglobin Concentration 33.2 32.0 - 35.7 g/dL [facility] Platelet 88(L) 145 - 357 x10(3)/ L [facility] RDW Standard Deviation 43.5 36.0 - 45.0 fL [facility] RDW coefficient of variation 13.7 11.4 - 13.8 % [facility] Mean Platelet Volume 10.2 7.6 - 12.9 fL [facility] NRBC% auto 0.0 % [facility] NRBC Absolute 0.000 0.000 - 0.000 x10(3)/mc L [facility] Blood 02/20/2024 4:23 AM EDT 02/20/2024 4:42 AM EDT Narrative Resulting Agency Comment Spec In Lab Minnie FRENCH HEMATOLOGY ORDE ASH [facility] [place] [address] * (ABNORMAL) Basic Metabolic Panel (non-fasting) (02/20/2024 4:23 AM EDT) Glucose 113 65 - 199 mg/dL [facility] Comment:Diabetes: >=200 mg/d L plus symptoms Blood Urea Nitrogen 20 10 - 20 mg/dL [facility] Comment:result rechecked-[place] Creatinine 0.71(L) 0.80 - 1.50 mg/dL [facility] Sodium 135 135 - 145 mmol/L [facility] Potassium 3.9 3.5 - 5.0 mmol/L [facility] Comment: Please note: ??Patients with WBC >100,000 may have falsely elevated Potassium levels. ??For accurate Potassium quantification in these patients send serum separator tube (gold top) for subsequent determinations. ??Contact the Clinical Chemistry Laboratory if there are any questions. Chloride 102 98 - 107 mmol/L [facility] Carbon Dioxide 25 22 - 31 mmol/L [facility] Anion Gap 8 5 - 15 mmol/L [facility] Calcium 8.7 8.5 - 10.5 mg/dL [facility] Comment:result rechecked-[place] Est Glomerular Filtration Rate 102 >=60 mL/min/1. 73 m?? [facility] Comment: This patient's estimated GFR [...] MD CHEMISTRY ORDERABLE S Performing Organization Address [facility] Co de Phone Number [facility] [place] [address] * Potassium (02/19/2024 3:57 AM EDT) Potassium 4.3 3.5 - 5.0 mmol/L [facility] Comment: Please note: ??Patients with [...] MD CHEMISTRY ORDERABLE S Performing Organization Address [facility] Co de Phone Number [facility] [place] [address] * POCT Glucose (02/18/2024 8:24 AM EDT) Glucose, POC 157 65 - 199 mg/dL [facility] Comment: Supplemental ranges: <140 mg/dL before meals <180 mg/dL all other times of the day Blood 02/18/2024 8:24 AM EDT 02/18/2024 8:24 AM EDT Zak Graham MD POINT OF CARE TEST ORDERABLES [facility] [place] [address] * Scan, Peripheral Blood (02/18/2024 1:40 AM EDT) Plat estimate Decreased [facility] RBC Morphology Normal [facility] Blood 02/18/2024 1:40 AM EDT 02/18/2024 1:56 AM EDT Narrative Resulting Agency Comment Spec In Lab Neftali FRENCH HEMATOLOGY ORDER OLE Performing Organization Address City/[facility]/ZIP Co de Phone Number [facility] [place] [address] * (ABNORMAL) Differential, Automated (02/18/2024 1:40 AM EDT) [facility] Neutrophil % 87.1 % [facility] Neutrophil Absolute 15.03(H) 1.70 - 6.10 x10(3)/mc L [facility] Lymph % 3.0 % [facility] Lymphocytes Abs 0.5(L) 0.9 - 3.2 x10(3)/mc L [facility] Monocyte % 9.1 % [facility] Monocyte Abs 1.6(H) 0.3 - 0.9 x10(3)/mc L [facility] Eos % 0.0 % [facility] Eosinophils Abs 0.0 0.0 - 0.4 x10(3)/mc L [facility] Basophil % 0.2 % [facility] Baso Absolute 0.0 0.0 - 0.1 x10(3)/mc L [facility] Immature Gran % 0.60 % [facility] Comment: Immature granulocytes(IG's)percentage and absolute count will include metamyelocytes, myelocytes, and promyelocytes. Blood smears from CBCs yielding IG's will be scanned manually for concordance. If this scan disagrees with the automated IG or if promyelocytes are noted, a manual differential will be performed. Immature Gran Absolute 0.10(H) 0.00 - 0.04 x10(3)/mc L [facility] Blood 02/18/2024 1:40 AM EDT 02/18/2024 1:56 AM EDT Narrative Resulting Agency Comment Spec In Lab Neftali FRENCH HEMATOLOGY ORDER OLE [facility] [place] [address] * (ABNORMAL) Hemogram (02/18/2024 1:40 AM EDT) White Blood Cell 17.2(H) 4.0 - 9.5 x10(3)/mc L [facility] Red Blood Cell 4.71 4.58 - 5.54 x10(6)/mc L [facility] Hemoglobin 13.7 13.7 - 16.5 g/dL [facility] Hematocrit 39.2(L) 40.5 - 48.5 % [facility] Mean Cell Volume 83.2 82.9 - 93.1 fL [facility] Mean Cell Hemoglobin 29.1 27.5 - 32.1 pg [facility] Mean Cell Hemoglobin Concentration 34.9 32.0 - 35.7 g/dL [facility] Platelet 147 145 - 357 x10(3)/mc L [facility] RDW Standard Deviation 39.9 36.0 - 45.0 [facility] RDW coefficient of variation 13.2 11.4 - 13.8 % [facility] Mean Platelet Volume 9.9 7.6 - 12.9 [facility] NRBC% auto 0.0 % [facility] NRBC Absolute 0.000 0.000 - 0.000 x10(3)/mc L [facility] Blood 02/18/2024 1:40 AM EDT 02/18/2024 1:56 AM EDT Narrative Resulting Agency Comment Spec In Lab Neftali FRENCH HEMATOLOGY ORDER OLE [facility] [place] [address] * (ABNORMAL) Basic Metabolic Panel (non-fasting) (02/18/2024 1:40 AM EDT) Glucose 176 65 - 199 mg/dL [facility] Comment:Diabetes: >=200 mg/d L plus symptoms Blood Urea Nitrogen 10 10 - 20 mg/dL [facility] Creatinine 0.65(L) 0.80 - 1.50 mg/dL [facility] Sodium 135 135 - 145 mmol/L [facility] Potassium 4.2 3.5 - 5.0 mmol/L [facility] Comment: Please note: ??Patients with WBC >100,000 may have falsely elevated Potassium levels. ??For accurate Potassium quantification in these patients send serum separator tube (gold top) for subsequent determinations. ??Contact the Clinical Chemistry Laboratory if there are any questions. Chloride 106 98 - 107 mmol/L [facility] Carbon Dioxide 20(L) 22 - 31 mmol/L [facility] Anion Gap 9 5 - 15 mmol/L [facility] Calcium 7.6(L) 8.5 - 10.5 mg/dL [facility] Est Glomerular Filtration Rate 105 >=60 mL/min/1. 73 m?? [facility] Comment: This patient's estimated GFR [...] Lab Zak Graham MD CHEMISTRY ORDERABLE S [facility] [place] [address] * (ABNORMAL) Troponin (02/18/2024 1:40 AM EDT) Troponin-T, High Sensitivity 342(H) <=22 ng/L [facility] Comment: This patient's troponin T [...] troponin value can be found in the [facility] Test Catalog Troponin - [facility] Test Catalog Reference: Fourth Jermyn Definition of Myocardial Infarction. Journal of the [employer] 2018;72:1393-9932 Blood 02/18/2024 1:40 AM EDT 02/18/2024 1:56 AM EDT Narrative Resulting Agency Comment Spec In Lab Zak Graham MD CHEMISTRY ORDERABLE S Performing Organization Address [facility] Co de Phone Number [facility] [place] [address] * POCT Glucose (02/17/2024 8:13 PM EDT) Glucose, POC 142 65 - 199 mg/dL [facility] Comment: Supplemental ranges: <140 mg/dL before meals <180 mg/dL all other times of the day Blood 02/17/2024 8:13 PM EDT 02/17/2024 8:13 PM EDT Zak Graham MD POINT OF CARE TEST ORDERABLES Performing Organization Address [facility] Co de Phone Number [facility] [place] [address] * POCT Glucose (02/17/2024 5:42 PM EDT) Glucose, POC 160 65 - 199 mg/dL [facility] Comment: Supplemental ranges: <140 mg/dL before meals <180 mg/dL all other times of the day Blood 02/17/2024 5:42 PM EDT 02/17/2024 5:42 PM EDT Zak Graham MD POINT OF CARE TEST ORDERABLES Performing Organization Address [facility] Co de Phone Number [facility] [place] [address] * Hemoglobin (02/17/2024 5:42 PM EDT) Hemoglobin 13.7 13.7 - 16.5 g/dL [facility] Blood 02/17/2024 5:42 PM EDT 02/17/2024 6:10 PM EDT Narrative Resulting Agency Comment Spec In Lab Zak Graham MD HEMATOLOGY ORDERABL ES Performing Organization Address [facility]/ZIP Co de Phone Number [facility] [place] [address] * Potassium (02/17/2024 5:42 PM EDT) Pathologist [facility] Potassium 4.3 3.5 - 5.0 mmol/L [facility] Comment: Please note: ??Patients with [...] MD CHEMISTRY ORDERABLE S Performing Organization Address [facility] Co de Phone Number [facility] [place] [address] * (ABNORMAL) BLOOD GAS 2 ARTERIAL (02/17/2024 4:18 PM EDT) pH, Arterial 7.34(L) 7.35 - 7.45 [facility] PCO2, Arterial 40 35 - 45 mmHg [facility] PO2, Arterial 78(L) 85 - 104 mmHg [facility] Bicarbonate, Arterial 20.8 20.0 - 26.0 mmol/L [facility] Base Excess, Arterial -5.1(L) -3.0 - 3.0 mmol/L [facility] Hgb Blood Gas 14.6 13.7 - 16.5 g/dL [facility] Oxyhemoglobin, Arterial 93.0(L) 94.0 - 97.0 % [facility] Carboxyhemoglob in, Arterial 0.3 % [facility] Comment: Nonsmokers: 0.5-1.5% COHB Smokers: Variable, but usually less than 10% Toxic: 20-30% COHB Lethal: Greater than 60% COHB Methemoglobin, Arterial 0.8 <=1.5 % [facility] Na Whole Blood 136 135 - 145 mmol/L [facility] K Whole Blood 4.1 3.5 - 5.0 mmol/L [facility] Comment: Please note: Patients with WBC >100,000 may have falsely elevated Potassium levels. Contact the Clinical Chemistry Laboratory if there are any questions. ICa Whole Blood 1.10(L) 1.15 - 1.33 mmol/L [facility] Comment: Note: ??Total bilirubin higher than 20 mg/dL may lead to falsely low ionized calcium. CL Whole Blood 105 98 - 107 mmol/L [facility] Gluc Whole Bld 159 65 - 199 mg/dL [facility] Comment:Diabetes: >=200 mg/d L plus symptoms. Lactate WB 1.2 0.5 - 2.2 mmol/L [facility] FIO2 Art 40 % [facility] PF Ratio Art 195 [facility] Blood 02/17/2024 4:18 PM EDT 02/17/2024 4:18 PM EDT Zak Graham MD POINT OF CARE TEST ORDERABLES Performing Organization Address City/State/[facility] Co de Phone Number [facility] [place] [address] * XR Chest One View (02/17/2024 1:44 PM EDT) [place] WORKSTATION ID [id number] RAD Anatomical Region Laterality Modality Chest N/A Digital Radiogra phy Impressions 02/17/2024 2:12 PM EDT 1. ??No definite pleural fluid collection or pneumothorax. 2. ??Right IJ Armagh-Kaila catheter tip terminates in a descending branch [...] have questions please contact the health healthcare architect that requested your imaging first. ? Electronically signed by: Denzel Hankins MD, [facility] ??([phone]), at 02/17/2024 2:12 PM Narrative 02/17/2024 2:12 PM EDT EXAMINATION: XR CHEST ONE VIEW CLINICAL HISTORY: s/p avr/cabg eval effusions TECHNIQUE: 1 view of the chest COMPARISON: Chest x-ray 01/09/2024, chest CT 02/03/2024 FINDINGS: ET tube tip terminates 5.2 cm above the carlos. Right IJ Armagh-Kaila catheter tip terminates in a descending branch [...] 5.2 cm above the carlos. Right IJ Armagh-Ganzcatheter tip terminates in a descending branch of [...] fluid collection or pneumothorax. 2. Right IJ Armagh-Kaila catheter tip terminates in a descending branch ofthe right pulmonary artery. Suggest catheter retraction. 3. Additional support lines and tubes as above. Thank you for letting us participate in the care of this patient. If youare a health care provider and have any questions regarding this report,please contact the number below. For patients who have questions please contactthe health healthcare architect that requested your imaging first. Electronically signed by: Denzel Hankins MD, [facility]([phone]), at 02/17/2024 2:12 PM Zak Graham MD IMG DX ORDERABLES * (ABNORMAL) BLOOD GAS 2 ARTERIAL (02/17/2024 1:31 PM EDT) pH, Arterial 7.35 7.35 - 7.45 [facility] PCO2, Arterial 39 35 - 45 mmHg [facility] PO2, Arterial 320(H) 85 - 104 mmHg [facility] Bicarbonate, Arterial 21.4 20.0 - 26.0 mmol/L [facility] Base Excess, Arterial -4.2(L) -3.0 - 3.0 mmol/L [facility] Hgb Blood Gas 14.1 13.7 - 16.5 g/dL [facility] Oxyhemoglobin, Arterial 97.9(H) 94.0 - 97.0 % [facility] Carboxyhemoglob in, Arterial 0.3 % [facility] Comment: Nonsmokers: 0.5-1.5% COHB Smokers: Variable, but usually less than 10% Toxic: 20-30% COHB Lethal: Greater than 60% COHB Methemoglobin, Arterial 0.7 <=1.5 % [facility] Na Whole Blood 137 135 - 145 mmol/L [facility] K Whole Blood 4.2 3.5 - 5.0 mmol/L [facility] Comment: Please note: Patients with WBC >100,000 may have falsely elevated Potassium levels. Contact the Clinical Chemistry Laboratory if there are any questions. ICa Whole Blood 1.13(L) 1.15 - 1.33 mmol/L [facility] Comment: Note: ??Total bilirubin higher than 20 mg/dL may lead to falsely low ionized calcium. CL Whole Blood 108(H) 98 - 107 mmol/L [facility] Gluc Whole Bld 136 65 - 199 mg/dL [facility] Comment:Diabetes: >=200 mg/d L plus symptoms. Lactate WB 1.1 0.5 - 2.2 mmol/L [facility] FIO2 Art 100 % [facility] PF Ratio Art 320 [facility] Blood 02/17/2024 1:31 PM EDT 02/17/2024 1:31 PM EDT Zak Graham MD POINT OF CARE TEST ORDERABLES [facility] [place] [address] * (ABNORMAL) Coox2 (02/17/2024 1:21 PM EDT) pO2, Coox 44 mmHg [facility] Hgb Blood Gas 13.1(L) 13.7 - 16.5 g/dL [facility] Oxyhemoglobin, Coox 76.4 % [facility] Carboxyhemoglo bin, Coox 0.3 % [facility] Comment: Nonsmokers: 0.5-1.5% COHB Smokers: Variable, but usually less than 10% Toxic: 20-30% COHB Lethal: Greater than 60% COHB Methemoglobin, Coox 0.8 <=1.5 % [facility] Source Coox Mixed Venous [facility] Blood 02/17/2024 1:21 PM EDT 02/17/2024 1:21 PM EDT Zak Graham MD POINT OF CARE TEST ORDERABLES [facility] [place] [address] * (ABNORMAL) BLOOD GAS 2 ARTERIAL (02/17/2024 12:14 PM EDT) pH, Arterial 7.39 7.35 - 7.45 [facility] PCO2, Arterial 40 35 - 45 mmHg [facility] PO2, Arterial 338(H) 85 - 104 mmHg [facility] Bicarbonate, Arterial 23.7 20.0 - 26.0 mmol/L [facility] Base Excess, Arterial -1.3 -3.0 - 3.0 mmol/L [facility] Hgb Blood Gas 11.0(L) 13.7 - 16.5 g/dL [facility] Oxyhemoglobin, Arterial 98.8(H) 94.0 - 97.0 % [facility] Carboxyhemoglob in, Arterial 0.3 % [facility] Comment: Nonsmokers: 0.5-1.5% COHB Smokers: Variable, but usually less than 10% Toxic: 20-30% COHB Lethal: Greater than 60% COHB Methemoglobin, Arterial 0.3 <=1.5 % [facility] Na Whole Blood 135 135 - 145 mmol/L [facility] K Whole Blood 5.1(H) 3.5 - 5.0 mmol/L [facility] Comment: Please note: Patients with WBC >100,000 may have falsely elevated Potassium levels. Contact the Clinical Chemistry Laboratory if there are any questions. ICa Whole Blood 1.13(L) 1.15 - 1.33 mmol/L [facility] Comment: Note: ??Total bilirubin higher than 20 mg/dL may lead to falsely low ionized calcium. CL Whole Blood 106 98 - 107 mmol/L [facility] Gluc Whole Bld 132 65 - 199 mg/dL [facility] Comment:Diabetes: >=200 mg/d L plus symptoms. Lactate WB 1.4 0.5 - 2.2 mmol/L [facility] Blood 02/17/2024 12:1 4 PM EDT 02/17/2024 12:14 PM EDT Zak Graham MD POINT OF CARE TEST ORDERABLES Performing Organization Address [facility] Co de Phone Number [facility] [place] [address] * (ABNORMAL) Fibrinogen (02/17/2024 12:10 PM EDT) Fibrinogen 154(L) 200 - 393 mg/dL [facility] Comment: OR Result called [...] HEMATOLOGY ORDERABLE S Performing Organization Address [facility] de Phone Number [facility] [place] [address] * (ABNORMAL) Thrombin time (02/17/2024 12:10 PM EDT) Thrombin Time 18(H) 10 - 17 sec [facility] Comment: OR Result called [...] MD HEMATOLOGY ORDERABLE S Performing Organization Address [facility]/ZIP Co de Phone Number [facility] [place] [address] * APTT (02/17/2024 12:10 PM EDT) Partial Thromboplastin Time 33 25 - 37 sec [facility] Comment: OR Result called [...] MD HEMATOLOGY ORDERABLE S Performing Organization Address City/[facility]/ZIP Co de Phone Number [facility] [place] [address] * (ABNORMAL) Prothrombin Time (02/17/2024 12:10 PM EDT) Prothrombin Time 16.7(H) 9.4 - 12.5 sec [facility] Comment: OR Result called by ?? LOMARL OR Results read back by: ? silvia pagan at 2024-02-17 12:41:48 International Normalization Ratio 1.5 [facility] Comment: OR Result [...] Lab Tara York MD HEMATOLOGY ORDERABLE S [facility] [place] [address] * (ABNORMAL) Hemogram (02/17/2024 12:10 PM EDT) White Blood Cell 11.1(H) 4.0 - 9.5 x10(3)/mc L [facility] Red Blood Cell 3.50(L) 4.58 - 5.54 x10(6)/mc L [facility] Hemoglobin 10.4(L) 13.7 - 16.5 g/dL [facility] Hematocrit 30.2(L) 40.5 - 48.5 % [facility] Comment: This result has been called to SILVIA PAGAN by Eddie López on 02 17 2024 at 1226, and has been read back. Mean Cell Volume 86.3 82.9 - 93.1 fL [facility] Mean Cell Hemoglobin 29.7 27.5 - 32.1 pg [facility] Mean Cell Hemoglobin Concentration 34.4 32.0 - 35.7 g/dL [facility] Platelet 118(L) 145 - 357 x10(3)/mc L [facility] RDW Standard Deviation 40.2 36.0 - 45.0 fL [facility] RDW coefficient of variation 12.8 11.4 - 13.8 % [facility] Mean Platelet Volume 9.5 7.6 - 12.9 fL [facility] NRBC% auto 0.0 % [facility] NRBC Absolute 0.000 0.000 - 0.000 x10(3)/mc L [facility] Blood 02/17/2024 12:1 0 PM EDT 02/17/2024 12:19 PM EDT Narrative Resulting Agency Comment Spec In Lab Tara York MD HEMATOLOGY ORDERABLE S [facility] [address] [place] [address] * (ABNORMAL) BLOOD GAS 2 ARTERIAL (02/17/2024 11:43 AM EDT) pH, Arterial 7.38 7.35 - 7.45 [facility] [facility] PCO2, Arterial 40 35 - 45 mmHg [facility] PO2, Arterial 304(H) 85 - 104 mmHg [facility] Bicarbonate, Arterial 23.2 20.0 - 26.0 mmol/L [facility] Base Excess, Arterial -1.9 -3.0 - 3.0 mmol/L [facility] Hgb Blood Gas 11.1(L) 13.7 - 16.5 g/dL [facility] Oxyhemoglobin, Arterial 98.6(H) 94.0 - 97.0 % [facility] Carboxyhemoglob in, Arterial 0.3 % [facility] Comment: Nonsmokers: 0.5-1.5% COHB Smokers: Variable, but usually less than 10% Toxic: 20-30% COHB Lethal: Greater than 60% COHB Methemoglobin, Arterial 0.3 <=1.5 % [facility] Na Whole Blood 133(L) 135 - 145 mmol/L [facility] K Whole Blood 6.2(Critic al) 3.5 - 5.0 mmol/L [facility] Comment: Noted by supervisor instrument mechanics. Please note: Patients with WBC >100,000 may have falsely elevated Potassium levels. Contact the Clinical Chemistry Laboratory if there are any questions. ICa Whole Blood 0.97(L) 1.15 - 1.33 mmol/L [facility] Comment: Note: ??Total bilirubin higher than 20 mg/dL may lead to falsely low ionized calcium. CL Whole Blood 104 98 - 107 mmol/L [facility] Gluc Whole Bld 128 65 - 199 mg/dL [facility] Comment:Diabetes: >=200 mg/d L plus symptoms. Lactate WB 1.1 0.5 - 2.2 mmol/L [facility] Blood 02/17/2024 11:4 3 AM EDT 02/17/2024 11:43 AM EDT Zak Graham MD POINT OF CARE TEST ORDERABLES [facility] [place] [address] * (ABNORMAL) BLOOD GAS 2 ARTERIAL (02/17/2024 11:08 AM EDT) pH, Arterial 7.38 7.35 - 7.45 [facility] PCO2, Arterial 38 35 - 45 mmHg [facility] PO2, Arterial 334(H) 85 - 104 mmHg [facility] Bicarbonate, Arterial 22.0 20.0 - 26.0 mmol/L [facility] Base Excess, Arterial -3.2(L) -3.0 - 3.0 mmol/L [facility] Hgb Blood Gas 10.8(L) 13.7 - 16.5 g/dL [facility] Oxyhemoglobin, Arterial 98.7(H) 94.0 - 97.0 % [facility] Carboxyhemoglob in, Arterial 0.3 % [facility] Comment: Nonsmokers: 0.5-1.5% COHB Smokers: Variable, but usually less than 10% Toxic: 20-30% COHB Lethal: Greater than 60% COHB Methemoglobin, Arterial 0.3 <=1.5 % [facility] Na Whole Blood 131(L) 135 - 145 mmol/L [facility] K Whole Blood 6.4(Critic al) 3.5 - 5.0 mmol/L [facility] Comment: Noted by supervisor instrument mechanics. Please note: Patients with WBC >100,000 may have falsely elevated Potassium levels. Contact the Clinical Chemistry Laboratory if there are any questions. ICa Whole Blood 0.98(L) 1.15 - 1.33 mmol/L [facility] Comment: Note: ??Total bilirubin higher than 20 mg/dL may lead to falsely low ionized calcium. CL Whole Blood 104 98 - 107 mmol/L [facility] Gluc Whole Bld 127 65 - 199 mg/dL [facility] Comment:Diabetes: >=200 mg/d L plus symptoms. Lactate WB 1.0 0.5 - 2.2 mmol/L [facility] Blood 02/17/2024 11:0 8 AM EDT 02/17/2024 11:08 AM EDT Zak Graham MD POINT OF CARE TEST ORDERABLES Performing Organization Address [facility] Co de Phone Number [facility] [place] [address] * (ABNORMAL) Hemoglobin and Hematocrit, blood (02/17/2024 11:04 AM EDT) Pathologist [facility] Hemoglobin 9.6(L) 13.7 - 16.5 g/dL [facility] Hematocrit 28.0(L) 40.5 - 48.5 % [facility] Comment: This result has been called to SIVLIA PAGAN by Eddie López on 02 17 2024 at 1120, and has been read back. Blood 02/17/2024 11:0 4 AM EDT 02/17/2024 11:12 AM EDT Narrative Resulting Agency Comment Spec In Lab Zak Graham MD HEMATOLOGY ORDERABL ES Performing Organization Address [facility]/ZIP Co de Phone Number [facility] [place] [address] * (ABNORMAL) Platelet count (02/17/2024 11:04 AM EDT) Platelet 106(L) 145 - 357 x10(3)/mc L [facility] Immature Plt % 1.6 0.0 - 7.4 % [facility] Comment: Limitation of the Immature Platelet Fraction (IPF)-May be less reliable when the platelet count is less than 14r825/uL due to statistical imprecision. The IPF value [...] in a decreased state of production. References: [employer] The Clinical Value of the Immature Platelet Fraction (IPF) in Cell Recovery Document Number 10-1143 03/2011 [employer] The Role of the Immature Platelet Fraction (IPF) in the Differential Diagnosis of Thrombocytopenia, Document [id number] V002/15/14 P002/17 Blood 02/17/2024 11:0 4 AM EDT 02/17/2024 11:12 AM EDT Narrative Resulting Agency Comment Spec In Lab Zak Graham MD HEMATOLOGY ORDERABL ES Performing Organization Address City/State/[facility] Co de Phone Number [facility] [place] [address] * (ABNORMAL) Fibrinogen (02/17/2024 11:04 AM EDT) Fibrinogen 149(L) 200 - 393 mg/dL [facility] Comment: OR Result called by ?? SALVLT OR Results read back by: ? Silvia Pagan at 2024-02-17 11:30:47 A fibrinogen level >100 mg/dL is adequate for hemostasis in most patients without underlying bleeding disorders. Blood 02/17/2024 11:0 4 AM EDT 02/17/2024 11:12 AM EDT Narrative Resulting Agency Comment Spec In Lab Zak Graham MD HEMATOLOGY ORDERABL ES [facility] [place] [address] * (ABNORMAL) BLOOD GAS 2 ARTERIAL (02/17/2024 10:41 AM EDT) pH, Arterial 7.37 7.35 - 7.45 [facility] PCO2, Arterial 44 35 - 45 mmHg [facility] PO2, Arterial 335(H) 85 - 104 mmHg [facility] Bicarbonate, Arterial 24.9 20.0 - 26.0 mmol/L [facility] Base Excess, Arterial -0.4 -3.0 - 3.0 mmol/L [facility] Hgb Blood Gas 11.5(L) 13.7 - 16.5 g/dL [facility] Oxyhemoglobin, Arterial 98.9(H) 94.0 - 97.0 % [facility] Carboxyhemoglob in, Arterial 0.1 % [facility] Comment: Nonsmokers: 0.5-1.5% COHB Smokers: Variable, but usually less than 10% Toxic: 20-30% COHB Lethal: Greater than 60% COHB Methemoglobin, Arterial 0.3 <=1.5 % [facility] Na Whole Blood 132(L) 135 - 145 mmol/L [facility] K Whole Blood 5.9(H) 3.5 - 5.0 mmol/L [facility] Comment: Please note: Patients with WBC >100,000 may have falsely elevated Potassium levels. Contact the Clinical Chemistry Laboratory if there are any questions. ICa Whole Blood 1.02(L) 1.15 - 1.33 mmol/L [facility] Comment: Note: ??Total bilirubin higher than 20 mg/dL may lead to falsely low ionized calcium. CL Whole Blood 104 98 - 107 mmol/L [facility] Gluc Whole Bld 129 65 - 199 mg/dL [facility] Comment:Diabetes: >=200 mg/d L plus symptoms. Lactate WB 1.1 0.5 - 2.2 mmol/L [facility] Blood 02/17/2024 10:4 1 AM EDT 02/17/2024 10:41 AM EDT Zak Graham MD POINT OF CARE TEST ORDERABLES [facility] [place] [address] * (ABNORMAL) BLOOD GAS 2 ARTERIAL (02/17/2024 10:06 AM EDT) pH, Arterial 7.38 7.35 - 7.45 [facility] PCO2, Arterial 42 35 - 45 mmHg [facility] PO2, Arterial 329(H) 85 - 104 mmHg [facility] Bicarbonate, Arterial 24.7 20.0 - 26.0 mmol/L [facility] Base Excess, Arterial -0.3 -3.0 - 3.0 mmol/L [facility] Hgb Blood Gas 11.0(L) 13.7 - 16.5 g/dL [facility] Oxyhemoglobin, Arterial 99.0(H) 94.0 - 97.0 % [facility] Carboxyhemoglob in, Arterial 0.3 % [facility] Comment: Nonsmokers: 0.5-1.5% COHB Smokers: Variable, but usually less than 10% Toxic: 20-30% COHB Lethal: Greater than 60% COHB Methemoglobin, Arterial 0.3 <=1.5 % [facility] Na Whole Blood 132(L) 135 - 145 mmol/L [facility] K Whole Blood 6.0(H) 3.5 - 5.0 mmol/L [facility] Comment: Please note: Patients with WBC >100,000 may have falsely elevated Potassium levels. Contact the Clinical Chemistry Laboratory if there are any questions. ICa Whole Blood 0.97(L) 1.15 - 1.33 mmol/L [facility] Comment: Note: ??Total bilirubin higher than 20 mg/dL may lead to falsely low ionized calcium. CL Whole Blood 102 98 - 107 mmol/L [facility] Gluc Whole Bld 123 65 - 199 mg/dL [facility] Comment:Diabetes: >=200 mg/d L plus symptoms. Lactate WB 1.1 0.5 - 2.2 mmol/L [facility] Blood 02/17/2024 10:0 6 AM EDT 02/17/2024 10:06 AM EDT Zak Graham MD POINT OF CARE TEST ORDERABLES [facility] [place] [address] * Surgical Pathology Report (02/17/2024 10:01 AM EDT) Final Diagnosis [id number] ? Location: [facility]; [facility]; The signing pathologist has (i) examined the relevant preparation(s) for the specimen(s) and (ii) rendered or confirmed the diagnosis(es). . ?Surgical Pathology DIAGNOSIS Aortic valve leaflets, excision: Valve leaflets with myxoid degeneration, nodular fibrosis and dystrophic calcifications. Electronically signed by: ?Lindsay FERNANDEZ, Livier Gonzalez Verified: ??02/24/2024 13:49 ??Pathologist Performed at: ??-[facility] Dept. of Pathology, [place] [address] Creative Services Director: Job Brewer MD, FCAP, ??CLIA Certificate: [id number] SPECIMEN(S) SUBMITTED A - Aortic Valve Leaflets, [...] Sections Processing Blocks submitted for decalcification: A1. Earthmoving Labourer sections in 1 cassette labeled A1. ??ajw 02/24/2024 1:49 PM EDT [facility] AORTIC STRUCTURE / Unknown 02/17/2024 10:01 AM EDT 02/17/2024 10:01 AM EDT Zak Graham MD PATHOLOGY/CYTOLOGY ORDERABLES Performing Organization Address City/[facility]/ZIP Co de Phone Number [facility] [place] [address] * Specimen to Pathology (02/17/2024 10:01 AM EDT) AP Specimen 02/17/2024 10:0 1 AM EDT 02/17/2024 10:01 AM EDT Narrative [facility] - 02/17/2024 10:01 AM EDT Specimen requisition ordered. ??Separate Pathology report to follow Zak Graham MD PATHOLOGY/CYTOLOGY ORDERABLES Performing Organization Address City/[facility]/ZIP Co de Phone Number [facility] [place] [address] * (ABNORMAL) BLOOD GAS 2 ARTERIAL (02/17/2024 9:35 AM EDT) pH, Arterial 7.33(L) 7.35 - 7.45 [facility] PCO2, Arterial 35 35 - 45 mmHg [facility] PO2, Arterial 318(H) 85 - 104 mmHg [facility] Bicarbonate, Arterial 17.9(L) 20.0 - 26.0 mmol/L [facility] Base Excess, Arterial -8.0(L) -3.0 - 3.0 mmol/L [facility] Hgb Blood Gas 11.0(L) 13.7 - 16.5 g/dL [facility] Oxyhemoglobin, Arterial 98.8(H) 94.0 - 97.0 % [facility] Carboxyhemoglob in, Arterial 0.3 % [facility] Comment: Nonsmokers: 0.5-1.5% COHB Smokers: Variable, but usually less than 10% Toxic: 20-30% COHB Lethal: Greater than 60% COHB Methemoglobin, Arterial 0.3 <=1.5 % [facility] Na Whole Blood 131(L) 135 - 145 mmol/L [facility] K Whole Blood 5.8(H) 3.5 - 5.0 mmol/L [facility] Comment: Please note: Patients with WBC >100,000 may have falsely elevated Potassium levels. Contact the Clinical Chemistry Laboratory if there are any questions. ICa Whole Blood 0.98(L) 1.15 - 1.33 mmol/L [facility] Comment: Note: ??Total bilirubin higher than 20 mg/dL may lead to falsely low ionized calcium. CL Whole Blood 101 98 - 107 mmol/L [facility] Gluc Whole Bld 122 65 - 199 mg/dL [facility] Comment:Diabetes: >=200 mg/d L plus symptoms. Lactate WB 0.8 0.5 - 2.2 mmol/L [facility] Blood 02/17/2024 9:35 AM EDT 02/17/2024 9:35 AM EDT Zak Graham MD POINT OF CARE TEST ORDERABLES [facility] [place] [address] * (ABNORMAL) BLOOD GAS 2 VENOUS (02/17/2024 9:34 AM EDT) pH, Venous 7.22(Criti marquze) 7.32 - 7.42 [facility] Comment:Noted by supervisor instrument mechanics. PCO2, Venous 43 41 - 51 mmHg [facility] Comment:Noted by supervisor instrument mechanics. PO2, Venous 57(H) 25 - 40 mmHg [facility] Comment:Noted by supervisor instrument mechanics. Bicarbonate, Venous 17.1 mmol/L [facility] Comment:Noted by supervisor instrument mechanics. Base Excess, Venous -10.6 mmol/L [facility] Comment:Noted by supervisor instrument mechanics. Hgb Blood Gas 11.2(L) 13.7 - 16.5 g/dL [facility] Comment:Noted by supervisor instrument mechanics. Oxyhemoglobin, Venous 86.5 % [facility] Comment:Noted by supervisor instrument mechanics. Carboxyhemoglob in, Venous 0.3 % [facility] Comment: Noted by supervisor instrument mechanics. Nonsmokers: 0.5-1.5% COHB Smokers: Variable, but usually less than 10% Toxic: 20-30% COHB Lethal: Greater than 60% COHB Methemoglobin, Venous 0.0 <=1.5 % [facility] Comment:Noted by supervisor instrument mechanics. Na Whole Blood 156(H) 135 - 145 mmol/L [facility] Comment:Noted by supervisor instrument mechanics. K Whole Blood 5.5(H) 3.5 - 5.0 mmol/L [facility] Comment: Noted by supervisor instrument mechanics. Please note: Patients with WBC >100,000 may have falsely elevated Potassium levels. Contact the Clinical Chemistry Laboratory if there are any questions. ICa Whole Blood 1.03(L) 1.15 - 1.33 mmol/L [facility] Comment: Noted by supervisor instrument mechanics. Note: ??Total bilirubin higher than 20 mg/dL may lead to falsely low ionized calcium. CL Whole Blood 100 98 - 107 mmol/L [facility] Comment:Noted by supervisor instrument mechanics. Gluc Whole Bld 132 65 - 199 mg/dL [facility] Comment: Noted by supervisor instrument mechanics. Diabetes: >=200 mg/dL plus symptoms Lactate WB 1.0 0.5 - 2.2 mmol/L [facility] Comment:Noted by supervisor instrument mechanics. Blood Gas Source Venous [facility] Blood 02/17/2024 9:34 AM EDT 02/17/2024 9:34 AM EDT Zak Graham MD POINT OF CARE TEST ORDERABLES [facility] [place] [address] * (ABNORMAL) BLOOD GAS 2 ARTERIAL (02/17/2024 8:07 AM EDT) pH, Arterial 7.43 7.35 - 7.45 [facility] PCO2, Arterial 34(L) 35 - 45 mmHg [facility] PO2, Arterial 581(H) 85 - 104 mmHg [facility] Bicarbonate, Arterial 21.7 20.0 - 26.0 mmol/L [facility] Base Excess, Arterial -2.6 -3.0 - 3.0 mmol/L [facility] Hgb Blood Gas 14.5 13.7 - 16.5 g/dL [facility] Oxyhemoglobin, Arterial 99.0(H) 94.0 - 97.0 % [facility] Carboxyhemoglob in, Arterial 0.4 % [facility] Comment: Nonsmokers: 0.5-1.5% COHB Smokers: Variable, but usually less than 10% Toxic: 20-30% COHB Lethal: Greater than 60% COHB Methemoglobin, Arterial 0.3 <=1.5 % [facility] Na Whole Blood 139 135 - 145 mmol/L [facility] K Whole Blood 4.0 3.5 - 5.0 mmol/L [facility] Comment: Please note: Patients with WBC >100,000 may have falsely elevated Potassium levels. Contact the Clinical Chemistry Laboratory if there are any questions. ICa Whole Blood 1.09(L) 1.15 - 1.33 mmol/L [facility] Comment: Note: ??Total bilirubin higher than 20 mg/dL may lead to falsely low ionized calcium. CL Whole Blood 106 98 - 107 mmol/L [facility] Gluc Whole Bld 100 65 - 199 mg/dL [facility] Comment:Diabetes: >=200 mg/d L plus symptoms. Lactate WB 1.3 0.5 - 2.2 mmol/L [facility] Blood 02/17/2024 8:07 AM EDT 02/17/2024 8:07 AM EDT Zak Graham MD POINT OF CARE TEST ORDERABLES Performing Organization Address [facility]/ZIP Co de Phone Number [facility] [place] [address] * POCT Glucose (02/17/2024 6:38 AM EDT) Glucose, POC 98 65 - 199 mg/dL [facility] Comment: Supplemental ranges: <140 mg/dL before meals <180 mg/dL all other times of the day Blood 02/17/2024 6:38 AM EDT 02/17/2024 6:38 AM EDT Zak Graham MD POINT OF CARE TEST ORDERABLES Performing Organization Address [facility] Co de Phone Number [facility] [place] [address] * Transesophageal Echo/OR (02/17/2024 6:33 AM EDT) [...] 6 hours upon arrival to Unit. Give WA if unable to take PO, Routine Given [...] dose on Sat02/17/24 at 1400, Until Discontinued, [place] teeth and / or gums. Scan the CHG vial in the [employer] Q-Care Oral Care Kit from floor stock. Ventilator-associated pneumonia prophylaxis For use in ICU/Critical care locations ONLY. Obtain kit from Floor Stock location. Scan CHG vial in the [employer] Q-Care Oral Care Kit, Routine Given 02/17/2024 [...] at 50% of previous rate. Call house superintendent if goal not achieved at maximum rate. [...] PHENYLephrine and/or vasopressin ineffective. Call pager # [phone] if initiated. Titrate to keep systolic blood [...] L/min/M2. Maximum volume 2 L. Call house superintendent for additional fluid orders: pager #[phone]. Rate/Dose Verify 02/18/2024 8:00 AM EDT 1 mL/hr 1 mL/hr Rate/Dose Verify 02/18/2024 6:00 AM EDT 1 mL/hr 1 mL/hr Rate/Dose Verify 02/18/2024 4:00 AM EDT 1 mL/hr 1 mL/hr sodium chloride 0.9% infusion 10-30 mL/hr, Intravenous, DAILY PRN, Starting on Sat02/17/24 at 1307, Until Sat02/18/24 at 0835, Side port TKO rate, per [facility] nursing protocol. Rate/Dose Verify 02/17/2024 8:00 PM EDT 30 mL/hr 30 mL/hr Rate/Dose Verify 02/17/2024 6:00 PM EDT 30 mL/hr 30 mL/h r Rate/Dose Verify 02/17/2024 5:00 PM EDT 30 mL/hr 30 mL/h r sodium chloride 0.9% infusion 10-30 mL/hr, Intravenous, DAILY PRN, Starting on Sat02/17/24 at 1307, Until Sat02/18/24 at 0835, Side port TKO rate, per [facility] nrusing protocol. Rate/Dose Verify 02/18/2024 8:00 [...] Routine documented in this encounter Care Teams Stockholder Relationship Specialty Start Date End Date Aparna Jordan APRN PCP - General Family Medicine 10/21/23 documented as of this encounter
--- OUTSIDE RECORDS SUMMARY | 2024-05-20 09:07 | XMS_ITS | Encounter Summary ---
Author Organization [facility] Address [facility] [place] [address] Care Team Providers Care Metal Machinist Name Role Phone Vanessa Christian MAURI Primary Care Provider [phone] Encounter Details Date Type Department Care Team (Latest Contact Info) Description 03/12/2024 1:30 PM EDT - 03/12/2024 11:59 PM EDT Hospital Encounter XRay at [address] [place] [address] Coronary artery disease, unspecified vessel or lesion type, unspecified whether angina present, unspecified whether [place] or transplanted heart Discharge Disposition: Home Social History Tobacco Use Types Packs/Day Years Used Date Smoking Tobacco: Former Cigarettes Smokeless Tobacco: Never Comments:Quit 15 + years ago Alcohol Use Standard Drinks/Week Comments Yes 0 (1 standard drink = 0.6 oz pur e alcohol) rare [facility] Utilities Answer Date Recorded In the past 12 months has e [employer], gas, oil, or water discoapi threatened to shut off services in your [...] AM EDT Office Visit Cardiology at [address] [place] [address] Neftali Ernandez MD [facility] [place] [address] documented as of this encounter Procedures Procedure Name Priority Date/Time Associated Diagnosis Comments XR CHEST PA AND LATERAL Routine 03/12/2024 1:42 PM EDT Coronary artery disease, unspecified vessel or lesion type, unspecified whether angina present, unspecified whether [place] or transplanted heart documented in this encounter Results * XR Chest PA & Lateral (Generic) (03/12/2024 1:42 PM EDT) WORKSTATION ID [id number] RAD Anatomical Region Laterality Modality Chest N/A [...] questions please contact the health hospice care transitions coordinator that requested your imaging first. ? Electronically signed by: Augie Sanchez MD, [facility] ([phone]), at 03/13/2024 8:28 AM Narrative 03/13/2024 8:28 AM EDT EXAMINATION: XR CHEST PA AND LATERAL (GENERIC) CLINICAL HISTORY: s/p cabg eval effusions I25.10, Atherosclerotic heart disease of [place] coronary artery without angina pectoris TECHNIQUE: PA [...] eval effusions I25.10, Atherosclerotic heart disease of [place] coronary artery withoutangina pectoris TECHNIQUE: PA and [...] have questions please contactthe health hospice care transitions coordinator that requested your imaging first. Zak Farmer MD IMG DX ORDERABLES documented in this encounter Visit Diagnoses Diagnosis Coronary artery disease, unspecified vessel or lesion type, unspecified whether angina present, unspecified whether [place] or transplanted heart documented in this encounter Care Teams Metal Machinist Relationship Specialty Start Date End Date Vanessa Christian APRN PCP - General Family Medicine 10/21/23 documented as of this encounter
--- OUTSIDE RECORDS SUMMARY | 2024-05-20 09:07 | XMS_ITS | Encounter Summary ---
Author Organization [facility] Address [facility] [place] [address] Care Team Providers Care Ergonomic Specialist Name Role Phone Vanessa Christian MAURI Primary Care Provider [phone] Encounter Details Date Type Department Care Team (Latest Contact Info) Description 03/12/2024 Travel Social History Tobacco Use Types Packs/Day Years Used Date Smoking Tobacco: Former Cigarettes Smokeless Tobacco: Never Comments:Quit 15 + years ago Alcohol Use Standard Drinks/Week Comments Yes 0 (1 standard drink = 0.6 oz pur e alcohol) rare [facility] Utilities Answer Date Recorded In the [...] 11:00 AM EDT Office Visit Cardiology at [address] [place] [id number] Neftali Ernandez MD [facility] [place] [address] documented as of this encounter Visit Diagnoses Not on filedocumented in this encounter Care Teams Ergonomic Specialist Relationship Specialty Start Date End Date Vanessa Christian APRN PCP - General Family Medicine 10/21/23 documented as of this encounter
--- OUTSIDE RECORDS SUMMARY | 2024-05-20 09:07 | XMS_ITS | Clinical Summary ---
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 Logistics and preliminary review of TONY were reviewed with patient. - Refer to SHT Hypertension 08/14/2023 HLD (hyperlipidemia) 08/14/2023 Resolved Problems Problem Noted Date Diagnosed Date Resolved Date Chest pressure 08/14/2023 10/21/2023 SILVA (dyspnea on exertion) 08/14/2023 Encounters Date Type Department Care Team Description 03/12/2024 2:40 PM EDT Office Visit [place] [address] Zak Farmer MD Coronary artery disease, unspecified vessel or lesion type, unspecified whether angina present, unspecified whether northern arapaho or transplanted heart 03/12/2024 1:30 PM EDT - 03/12/2024 11:59 PM EDT Hospital Encounter XRay at [address] [place] [address] Coronary artery disease, unspecified vessel or lesion type, unspecified whether angina present, unspecified whether northern [place] or transplanted heart Discharge Disposition: Home 03/12/2024 Travel 02/24/2024 Orders Only Cardiac Surgery [facility] [place] [id number] Trudi Lester, MECHANICAL ENGINEERING MANAGER 02/17/2024 5:43 AM EDT - 02/24/2024 11:23 AM EDT Hospital Encounter Heart and Vascular Unit Level 4 Wing B at [facility] [place] [address] Zak Farmer MD S/P AVR (Primary Dx); Aortic valve stenosis, etiology of cardiac valve disease unspecified Discharge Disposition: Home with VNA from Last 3 Months Social History Tobacco Use Types Packs/Day Years Used Date Smoking Tobacco: Former Cigarettes Smokeless Tobacco: Never Comments:Quit 15 + years ago Alcohol Use Standard Drinks/Week Comments Yes 0 (1 standard drink = 0.6 oz pur e alcohol) rare [facility] Utilities Answer Date Recorded In the past 12 months has th e electric, gas, oil, or water [employer] threatened to shut off services in your [...] 11:00 AM EDT Office Visit Cardiology at [address] [place] [address] Neftali Ernandez MD [facility] [place] [address] Health Maintenance Due Date Last Done Comments CT Colonography 1959 Colonoscopy 1959 Colorectal Cancer Screening 1959 FIT DNA 1959 FIT 1959 Sigmoidoscopy (10 year) with FIT yearly 1959 Sigmoidoscopy 1959 HIV screen 1977 Hepatitis C Screening 1977 Tdap adult 1978 Tetanus vaccine 1978 Zoster vaccine (1 of 2) 2009 Advance Directive 2014 Covid-19 Vaccine (1 - 2022-24 season) 2023 Influenza (Flu) vaccine (1 o f 1 - Influenza standard series) 06/07/2024 Medical Devices Implanted Type Area Legal Coordinator Device Identifier Shelf Expiration Date Model / Serial / Lot Cable,Cut,Edg ,Blnt,Ss,3tpr ([id number]) - [id number] Implanted:Qty : 1 on 02/17/2024 by Zak Farmer MD at [facility] IMPLANTS Midline: Chest [employer] - [id number] 09/02/2028 [id number] / / [id number] Valve Coronary Aortic 23mm Tissue Trnscath Biopros Inspiris ([id number]) (Autoreq) - [id number] Implanted:Qty : 1 on 02/17/2024 by Zak Farmer MD at [facility] IMPLANTS Heart [employer] - TSAI LI 09/15/2027 [id number] 23MM / [id number] / Procedures Procedure Name Priority Date/Time Associated Diagnosis Comments EKG 12-LEAD Routine 03/12/2024 2:35 PM EDT Coronary artery disease, unspecified vessel or lesion type, unspecified whether angina present, unspecified whether northern [place]rap[place] or transplanted heart XR CHEST PA AND LATERAL Routine 03/12/2024 1:42 PM EDT Coronary artery disease, unspecified vessel or lesion type, unspecified whether angina present, unspecified whether northern [place] or transplanted heart SCAN DOC: TELEMETRY STRIPS [...] 9:45 AM EDT HEPATIC FUNCTION PANEL Routine 02/21/2024 9:45 AM EDT LIPASE Routine [...] EDT XR CHEST PA AND LATERAL Routine 02/20/2024 10:19 AM EDT SCAN DOC: TELEMETRY STRIPS 02/20/2024 9:26 AM EDT SCAN DOC: TELEMETRY STRIPS 02/20/2024 7:13 AM EDT SCAN DOC: TELEMETRY STRIPS 02/20/2024 5:39 AM EDT SCAN, PERIPHERAL BLOOD Routine 02/20/2024 4:23 AM EDT DIFFERENTIAL, AUTOMATED Routine 02/20/2024 4:23 AM EDT HEMOGRAM Routine 02/20/2024 4:23 [...] 8:24 AM EDT SCAN, PERIPHERAL BLOOD Routine 02/18/2024 1:40 AM EDT DIFFERENTIAL, AUTOMATED Routine 02/18/2024 1:40 AM EDT HEMOGRAM Routine 02/18/2024 1:40 AM EDT BASIC METABOLIC PANEL Routine 02/18/2024 1:40 AM EDT CBC (WITH DIFF) Routine 02/18/2024 1:40 AM EDT HC TROPONIN T Timed 02/18/2024 1:40 AM EDT from Last 3 Months Results * EKG 12 Lead (03/12/2024 2:35 PM EDT) Ventricular rate 59 BPM MUSE SYSTEM Atrial Rate 59 BPM MUSE SYSTEM P-R Interval 190 ms MUSE SYSTEM QRS Duration 92 ms MUSE SYSTEM Q-T Interval 406 ms MUSE SYSTEM QTC Calculated (Bezet) 401 ms MUSE SYSTEM Calculated P [place] -12 degrees MUSE SYSTEM Calculated R [place] 24 degrees MUSE SYSTEM Calculated T [place] 74 degrees MUSE SYSTEM INTERPRETATION Sinus bradycardia T wave abnormality, consider anterior ischemia Abnormal ECG When compared with ECG of 17-FEB-2024 13:24, [place] interval has decreased T wave inversion now evident in Anterior leads Confirmed by Paul Guzman ([id number]) on 03/15/2024 8:36:23 AM MUSE SYSTEM 03/12/2024 2:35 PM EDT 03/15/2024 8:36 AM EDT Zak Farmer MD ECG ORDERABLES MUSE SYSTEM * XR Chest PA & Lateral (Generic) (03/12/2024 1:42 PM EDT) Only the most recent of2 resultswithin the time period is included. WORKSTATION ID [id number] RAD Anatomical Region Laterality Modality Chest N/A [...] questions please contact the health critical care rn that requested your imaging first. ? 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 Electronically signed by: Augie Sanchez MD, [facility]([phone]), at 03/13/2024 8:28 AM Zak Farmer MD IMG DX ORDERABLES * Scan Doc: Telemetry Strips (02/24/2024 8:03 AM EDT) Only the most recent of40 resultswithin the time period is included. Narrative 02/24/2024 8:03 AM EDT Ordered by an unspecified provider. Scanning Provider MEDIA MGR SCAN EXT O RDR/RSLT * Potassium (02/24/2024 4:42 AM EDT) Only the most recent of4 resultswithin the time period is included. Potassium 4.0 3.5 - 5.0 mmol/L [facility] Comment: Please note: ??Patients [...] Lab Zak Farmer MD CHEMISTRY ORDERABLE S [facility] [place] [address] * (ABNORMAL) Basic Metabolic Panel (non-fasting) (02/23/2024 4:24 AM EDT) Only the most recent of4 resultswithin the time period is included. Glucose 117 65 - 199 mg/dL [facility] Comment:Diabetes: >=200 mg/d L plus symptoms Blood Urea Nitrogen 18 10 - 20 mg/dL [facility] Creatinine 0.71(L) 0.80 - 1.50 mg/dL [facility] Sodium 138 135 - 145 mmol/L [facility] Potassium 4.4 3.5 - 5.0 mmol/L [facility] Comment: Please note: ??Patients with WBC >100,000 may have falsely elevated Potassium levels. ??For accurate Potassium quantification in these patients send serum separator tube (gold top) for subsequent determinations. ??Contact the Clinical Chemistry Laboratory if there are any questions. Chloride 101 98 - 107 mmol/L [facility] Carbon Dioxide 26 22 - 31 mmol/L [facility] Anion Gap 11 5 - 15 mmol/L [facility] Calcium 8.8 8.5 - 10.5 mg/dL [facility] Est Glomerular Filtration Rate 102 >=60 mL/min/1. 73 m?? [facility] Comment: This patient's estimated [...] In Lab Romeo Carpio MD CHEMISTRY ORDERABLES [facility] [place] [address] * Lactate, whole blood, send to lab ([facility]) (02/21/2024 9:45 AM EDT) Lactate WB 2.0 0.5 - 2.2 mmol/L [facility] Blood 02/21/2024 9:45 AM EDT 02/21/2024 9:52 AM EDT Narrative Resulting Agency Comment Spec In Lab Zak Farmer MD CHEMISTRY ORDERABLE S Performing Organization Address [facility]/ZIP Co de Phone Number [facility] [place] [address] * Lipase (02/21/2024 9:45 AM EDT) Lipase 56 0 - 60 unit/L [facility] Blood 02/21/2024 9:45 AM EDT 02/21/2024 9:52 AM EDT Narrative Resulting Agency Comment Spec In Lab Zak Farmer MD CHEMISTRY ORDERABLE S Performing Organization Address City/[facility]/ZIP Co de Phone Number [facility] [place] [address] * Amylase (02/21/2024 9:45 AM EDT) Amylase 69 28 - 100 unit/L [facility] Blood 02/21/2024 9:45 AM EDT 02/21/2024 9:52 AM EDT Narrative Resulting Agency Comment Spec In Lab Zak Farmer MD CHEMISTRY ORDERABLE S [facility] [place] [address] * (ABNORMAL) Hepatic Function Panel (02/21/2024 9:45 AM EDT) [facility] Protein, Total 5.7(L) 6.1 - 8.0 g/dL [facility] Albumin 3.3 3.2 - 5.2 g/dL [facility] Aspartate Aminotransferase 13 0 - 39 unit/L [facility] Alanine Aminotransferase 16 0 - 55 unit/L [facility] Alkaline Phosphatase 63 40 - 130 unit/L [facility] Bilirubin, Total 0.6 0.2 - 1.3 mg/dL [facility] Bilirubin, Direct 0.2 0.0 - 0.3 mg/dL [facility] Blood 02/21/2024 9:45 AM EDT 02/21/2024 9:52 AM EDT Narrative Resulting Agency Comment Spec In Lab Zak Farmer MD CHEMISTRY ORDERABLE S Performing Organization Address City/[facility]/ZIP Co de Phone Number [facility] [place] [phone] * Scan, Peripheral Blood (02/20/2024 4:23 AM EDT) Only the most recent of2 resultswithin the time period is included. [facility] Plat estimate Decreased [facility] RBC Morphology Normal [facility] Blood 02/20/2024 4:23 AM EDT 02/20/2024 4:42 AM EDT Narrative Resulting Agency Comment Spec In Lab Minnie FRENCH HEMATOLOGY CECILIO ALEMAN Performing Organization Address City/[facility]/ZIP Co de Phone Number [facility] [place] [address] * (ABNORMAL) Hemogram (02/20/2024 4:23 AM EDT) Only the most recent of2 resultswithin the time period is included. [facility] White Blood Cell 12.7(H) 4.0 - 9.5 x10(3)/mc L [facility] Red Blood Cell 4.26(L) 4.58 - 5.54 x10(6)/mc L [facility] Hemoglobin 12.3(L) 13.7 - 16.5 g/dL [facility] Hematocrit 37.1(L) 40.5 - 48.5 % [facility] Mean Cell Volume 87.1 82.9 - 93.1 fL [facility] Mean Cell Hemoglobin 28.9 27.5 - 32.1 pg [facility] Mean Cell Hemoglobin Concentration 33.2 32.0 - 35.7 g/dL [facility] Platelet 88(L) 145 - 357 x10(3)/mc L [facility] RDW Standard Deviation 43.5 36.0 - 45.0 [facility] RDW coefficient of variation 13.7 11.4 - 13.8 % [facility] Mean Platelet Volume 10.2 7.6 - 12.9 [facility] NRBC% auto 0.0 % [facility] NRBC Absolute 0.000 0.000 - 0.000 x10(3)/mc L [facility] Blood 02/20/2024 4:23 AM EDT 02/20/2024 4:42 AM EDT Narrative Resulting Agency Comment Spec In Lab Minnie FRENCH HEMATOLOGY CECILIO ALEMAN Performing Organization Address City/State/[facility] Co de Phone Number [facility] [place] [address] * (ABNORMAL) Differential, Automated (02/20/2024 4:23 AM EDT) Only the most recent of2 resultswithin the time period is included. Neutrophil % 81.7 % [facility] Neutrophil Absolute 10.37(H) 1.70 - 6.10 x10(3)/mc L [facility] Lymph % 7.4 % [facility] Lymphocytes Abs 0.9 0.9 - 3.2 x10(3)/[facility] Monocyte % 9.7 % [facility] Monocyte Abs 1.2(H) 0.3 - 0.9 x10(3)/[facility] Eos % 0.1 % [facility] Eosinophils Abs 0.0 0.0 - 0.4 x10(3)/[facility] Basophil % 0.2 % [facility] Baso Absolute 0.0 0.0 - 0.1 x10(3)/[facility] Immature Gran % 0.90 % [facility] Comment: Immature granulocytes(IG's)percentage and absolute count will include metamyelocytes, myelocytes, and promyelocytes. Blood smears from CBCs yielding IG's will be scanned manually for concordance. If this scan disagrees with the automated IG or if promyelocytes are noted, a manual differential will be performed. Immature Gran Absolute 0.12(H) 0.00 - 0.04 x10(3)/[facility] Blood 02/20/2024 4:23 AM EDT 02/20/2024 4:42 AM EDT Narrative Resulting Agency Comment Spec In Lab Minnie FRENCH HEMATOLOGY CECILIO ALEMAN [facility] [place] [address] * POCT Glucose (02/18/2024 8:24 AM EDT) Glucose, POC 157 65 - 199 mg/dL [facility] Comment: Supplemental ranges: <140 mg/dL before meals <180 mg/dL all other times of the day Blood 02/18/2024 8:24 AM EDT 02/18/2024 8:24 AM EDT Zak Farmer MD POINT OF CARE TEST ORDERABLES [facility] [place] [address] * (ABNORMAL) Troponin (02/18/2024 1:40 AM EDT) Troponin-T, High Sensitivity 342(H) <=22 ng/L [facility] Comment: This patient's troponin [...] can be found in the [facility] Test Catalog Troponin - [facility] Test Catalog Reference: Fourth Leeds Definition of Myocardial Infarction. Journal of the [place] [employer] 2018;72:1430-7784 Blood 02/18/2024 1:40 AM EDT 02/18/2024 1:56 AM EDT Narrative Resulting Agency Comment Spec In Lab Zak Farmer MD CHEMISTRY ORDERABLE S [facility] [place] [address] from Last 3 Months Advance Directives * [...] Status decision made by: Patient Care Teams Automobile Sales Representative Relationship Specialty Start Date End Date Vanessa Christian APRN PCP - General Family Medicine 10/21/23
--- OUTSIDE RECORDS SUMMARY | 2024-05-20 09:08 | XMS_ITS | Encounter Summary ---
Author Organization [facility] Address [facility] Ivana linareseileen [place] [id number] Care Team Providers Care Box Toe Cementer Name Role Phone Vanessa Christian MAURI Primary Care Provider [phone] Reason for Referral * Consultation (Routine) - Closed Specialty Diagnoses / Procedures Referred By Contac t Referred To Contact Cardiac Surgery Diagnoses Nonrheumatic aortic valve stenosis significant - TAVR ( defers to Card Surg d/t age) Errol Loya MD [facility] [place] [address] Zak Farmer MD [facility] [place] [address] Referral ID Status Reason Start Date Expiration Date V isits Requested Visits Authorized [id number] Closed Consult, Test & Treat 10/21/2023 10/20/2024 1 1 Reason for Visit * Reason Comments Chest Pain Shortness of Breath Aortic Stenosis Encounter Details Date Type Department Care Team (Late st Contact Info) Description 10/21/2023 1:20 PM EST Office Visit Cardiology at [address] [address] Errol Loya MD [facility] [place] [address] Nonrheumatic aortic valve stenosis Social History Tobacco [...] Problem List Diagnosis Aortic stenosis 12/2022 TTE ([facility]): VITA 0.8-0.9 cm2 (MG 28 mmHg, DOI 3.6 m/s, SVI 35 cc/m2). Trace regurgitation. Normal bi-v s/f, no other valve findings Gastroesophageal reflux Nevus of face Right restorationism Hypertension HLD (hyperlipidemia) MEDICATIONS: Current Outpatient Medications [...] the meantime will refer to SHT at [facility] for further evaluation. Logistics [...] the meantime will refer to SHT at [facility] for further evaluation. Logistics [...] 11:00 AM EDT Office Visit Cardiology at [address] [place] [address] Errol Loya MD [facility] [place] [address] Scheduled Referrals Name Type Priority Associated Diagnoses Order Schedule Amb Referral to Structural Heart Outpatient Referral Routine Nonrheumatic aortic valve stenosis Ordered: 10/21/2023 documented as of this encounter Visit Diagnoses Diagnosis Nonrheumatic aortic valve stenosis Aortic valve disorders documented in this encounter Care Teams Box Toe Cementer Relationship Specialty Start Date End Date Vanessa Christian APRN PCP - General Family Medicine 10/21/23 documented as of this encounter
--- OUTSIDE RECORDS SUMMARY | 2024-05-20 09:08 | XMS_ITS | Encounter Summary ---
Author Organization [facility] Address [facility] [place] [address] Care Team Providers Care Lead Java Programmer Name Role Phone Vanessa Christian MAURI Primary Care Provider [phone] Encounter Details Date Type Department Care Team (Latest Contact Info) Description 01/09/2024 3:02 PM EDT - 01/09/2024 11:59 PM EDT Hospital Encounter XRay at [address] [place] [address] Zak Farmer MD [facility] [place] [address] Nonrheumatic aortic valve stenosis Discharge Disposition: Home [...] AM EDT Office Visit Cardiology at [address] [place] [address] Neftali Ernandez MD [facility] [place] [address] documented as of this encounter Procedures Procedure [...] who have questions please contact the health plant health care technician that requested your imaging first. ? Narrative [...] patients who have questions please contactthe health plant health care technician that requested your imaging first. Zak Farmer MD IMG DX ORDERABLES documented in this encounter Visit Diagnoses Diagnosis Nonrheumatic aortic valve stenosis Aortic valve disorders documented in this encounter Care Teams Lead Java Programmer Relationship Specialty Start Date End Date Vanessa Christian APRN PCP - General Family Medicine 10/21/23 documented as of this encounter
--- OUTSIDE RECORDS SUMMARY | 2024-05-20 09:08 | XMS_ITS | Encounter Summary ---
Author Organization [facility] Address [facility] [place] [address] Care Team Providers Care Hide House Supervisor Name Role Phone Vanessa Christian APRN Primary Care Provider [phone] Encounter Details Date Type Department Care Team [...] AM EDT Office Visit Cardiology at [address] [place] [address] Neftali Ernandez MD [facility] [place] [address] documented as of this encounter Visit Diagnoses Not on filedocumented in this encounter Care Teams Hide House Supervisor Relationship Specialty Start Date End Date Vanessa Christian APRN PCP - General Family Medicine 10/21/23 documented as of this encounter
--- OUTSIDE RECORDS SUMMARY | 2024-05-20 09:08 | XMS_ITS | Encounter Summary ---
[place] [address] Care Team Providers Care Golf Tournament Consultant Name Role Phone Victor M Lafleur MD Primary Care Provider [phone] Reason for Visit * Reason Onset Date Comments Referral 09/20/2023 Encounter Details Date Type Department Care Team (Late st Contact Info) Description 09/20/2023 Telephone Cardiology at [address] [address] Karen Billy, lace stripper Social History Tobacco Use Types Packs/Day Years [...] AM EDT Office Visit Cardiology at [address] [place] [address] Neftali Ernandez MD [facility] [place] [address] documented as of this encounter Visit Diagnoses Not on filedocumented in this encounter Care Teams Golf Tournament Consultant Relationship Specialty Start Date End Date Victor M Lafleur MD PCP - General 10/02/13 10/20/23 documented as of this encounter
--- OUTSIDE RECORDS SUMMARY | 2024-05-20 09:08 | XMS_ITS | Encounter Summary ---
Author Organization [facility] [place] [address] Care Team Providers Care Parimutuel Cashier Name Role Phone Vanessa Christian APRN Primary Care Provider [phone] Encounter Details Date Type Department Care Team [...] AM EDT Office Visit Cardiology at [address] [place] [phone] Neftali Ernandez MD [facility] [place] [address] documented as of this encounter Visit Diagnoses Not on filedocumented in this encounter Care Teams Parimutuel Cashier Relationship Specialty Start Date End Date Vanessa Christian APRN PCP - General Family Medicine 10/21/23 documented as of this encounter
--- OUTSIDE RECORDS SUMMARY | 2024-05-20 09:08 | XMS_ITS | Encounter Summary ---
Author Organization [facility] [place] [address] Care Team Providers Care Apricot Washer Name Role Phone Victor M Lafleur MD Primary Care Provider [phone] Encounter Details Date Type Department Care Team (Late st Contact Info) Description 09/26/2023 Abstract Cardiology at [address] [address] Karen Billy, RN Nonrheumatic aortic [...] 11:00 AM EDT Office Visit Cardiology at [address] [address] Neftali Ernandez MD [facility] [place] [address] documented as of this encounter Visit Diagnoses Diagnosis Nonrheumatic aortic valve stenosis Aortic valve disorders Nevus of face Benign neoplasm of skin of other and unspecified parts of face documented in this encounter Care Teams Apricot Washer Relationship Specialty Start Date End Date Victor M Lafleur MD PCP - General 10/02/13 10/20/23 documented as of this encounter
--- OUTSIDE RECORDS SUMMARY | 2024-05-20 09:08 | XMS_ITS | Encounter Summary ---
Author Organization [facility] [place] [address] Care Team Providers Care Wall Mirror Department Supervisor Name Role Phone Vanessa Christian MAURI Primary Care Provider [phone] Encounter Details Date Type Department Care Team (Latest Contact Info) Description 01/09/2024 3:00 PM EDT Laboratory [place] [phone] Nonrheumatic aortic valve stenosis Social History Tobacco Use Types Packs/Day Years Used Date Smoking Tobacco: Former Cigarettes Smokeless Tobacco: Never Comments:Quit 15 + years ago Alcohol Use Standard Drinks/Week Comments Yes 0 (1 standard drink = 0.6 oz pur e alcohol) rare [facility] Inpatient Questions Answer Date Recorded Prevent Contact [...] AM EDT Office Visit Cardiology at [address] [phone] Neftali Ernandez MD [facility] [place] [address] documented as of this encounter Procedures Procedure Name Priority Date/Time Associated Diagnosis Comments ABORH RECHECK STATUS Routine 01/09/2024 2:58 PM EDT HEMOGRAM Routine 01/09/2024 2:58 PM EDT Nonrheumatic aortic valve stenosis DIFFERENTIAL, AUTOMATED Routine 01/09/2024 2:58 PM EDT Nonrheumatic aortic valve stenosis TYPE AND SCREEN, SDP (FUTURE SURGERY, [facility] SAME DAY PROGRAM ONLY) [...] LAB CECILIO ALEMAN [facility] [place] [address] * Differential, Automated (01/09/2024 2:58 PM EDT) Neutrophil % 70.5 % [facility] Neutrophil Absolute 4.34 1.70 - 6.10 x10(3)/[facility] LABORATORY Lymph % 18.9 % [facility] Lymphocytes Abs 1.2 0.9 - 3.2 x10(3)/[facility] LABORATORY Monocyte % 8.0 % [facility] Monocyte Abs 0.5 0.3 - 0.9 x10(3)/[facility] LABORATORY Eos % 1.6 % [facility] Eosinophils Abs 0.1 0.0 - 0.4 x10(3)/[facility] LABORATORY Basophil % 0.5 % [facility] Baso Absolute 0.0 0.0 - 0.1 x10(3)/[facility] LABORATORY Immature Gran % 0.50 % [facility] Comment: Immature granulocytes(IG's)percentage and absolute count will include metamyelocytes, myelocytes, and promyelocytes. Blood smears from CBCs yielding IG's will be scanned manually for concordance. If this scan disagrees with the automated IG or if promyelocytes are noted, a manual differential will be performed. Immature Gran Absolute 0.03 0.00 - 0.04 x10(3)/[facility] LABORATORY Blood 01/09/2024 2:58 PM EDT 01/09/2024 3:03 PM EDT Narrative Resulting Agency Comment Spec In Lab Zak Farmer MD HEMATOLOGY ORDERABL ES [facility] [place] [address] * Hemogram (01/09/2024 2:58 PM EDT) White Blood Cell 6.2 4.0 - 9.5 x10(3)/[facility] LABORATORY Red Blood Cell 5.53 4.58 - 5.54 x10(6)/[facility] LABORATORY Hemoglobin 16.1 13.7 - 16.5 g/dL [facility] Hematocrit 46.9 40.5 - 48.5 % [facility] Mean Cell Volume 84.8 82.9 - 93.[address] [facility] Mean Cell Hemoglobin 29.1 27.5 - 32.[address] [facility] Mean Cell Hemoglobin Concentration 34.3 32.0 - 35.7 g/dL [facility] Platelet 187 145 - 357 x10(3)/[facility] LABORATORY RDW Standard Deviation 39.2 36.0 - 45.[address] [facility] RDW coefficient of variation 12.6 11.4 - 13.8 % [facility] Mean Platelet Volume 9.5 7.6 - 12.[address] [facility] NRBC% auto 0.0 % [facility] NRBC Absolute 0.000 0.000 - 0.000 x10(3)/[facility] LABORATORY Blood 01/09/2024 2:58 PM EDT 01/09/2024 3:03 PM EDT Narrative Resulting Agency Comment Spec In Lab Zak Farmer MD HEMATOLOGY ORDERABL ES [facility] [place] [address] * Basic Metabolic Panel (non-fasting) (01/09/2024 2:58 [...] CHEMISTRY ORDERABLE S [facility] [place] [address] * Hepatic Function Panel (01/09/2024 2:58 PM [...] ORDERABLE S Performing Organization Address [facility] Co de Phone Number [facility] [place] [address] * Prothrombin Time (01/09/2024 2:58 PM EDT) [...] MD HEMATOLOGY ORDERABL ES Performing Organization Address [facility] Co de Phone Number [facility] [place] [address] * Type and Screen Future Surgery, [facility] SAME DAY PROGRAM ONLY) (01/09/2024 2:58 PM EDT) Pathologist [facility] ABORH Type O NEGATIVE [facility] Patient BB History Not Found [facility] Expires at 2359 on: 02-20-2024 [facility] Ab Screen Interp Negative [facility] Blood 01/09/2024 2:58 PM EDT 01/09/2024 2:58 PM EDT Narrative Resulting Agency Comment Spec In Lab Zak Farmer MD BLOOD BANK LAB ORDE RABLES Performing Organization Address City/[facility]/ZIP Co de Phone Number [facility] [place] [address] documented in this encounter Visit Diagnoses Diagnosis Nonrheumatic aortic valve stenosis Aortic valve disorders documented in this encounter Care Teams Wall Mirror Department Supervisor Relationship Specialty Start Date End Date Vanessa Christian APRN PCP - General Family Medicine 10/21/23 documented as of this encounter
--- OUTSIDE RECORDS SUMMARY | 2024-05-20 09:08 | XMS_ITS | Encounter Summary ---
Author Organization [facility] [place] [address] Care Team Providers Care Materials Handling Equipment Operator Name Role Phone Vanessa Christian APRN Primary Care Provider [phone] Encounter Details Date Type Department Care Team (Late st Contact Info) Description 10/21/2023 Abstract Cardiology at [address] [phone] Adam Mayes RN Social History Tobacco Use [...] 11:00 AM EDT Office Visit Cardiology at [address] [place] [address] Neftali Ernandez MD [facility] [place] [address] documented as of this encounter Visit Diagnoses Not on filedocumented in this encounter Care Teams Materials Handling Equipment Operator Relationship Specialty Start Date End Date Vanessa Christian APRN PCP - General Family Medicine 10/21/23 documented as of this encounter
--- OUTSIDE RECORDS SUMMARY | 2024-05-20 09:08 | XMS_ITS | Encounter Summary ---
Author Organization [facility] [place] [address] Care Team Providers Care Escape Wheel Tooth Cutter Name Role Phone Vanessa Christian APRN Primary Care Provider [phone] Encounter Details Date Type Department Care Team (Late st Contact Info) Description 10/21/2023 Abstract Cardiology at [address] [phone] Adam Mayes RN Social History Tobacco Use [...] 11:00 AM EDT Office Visit Cardiology at [address] [phone] Neftali Ernandez MD [facility] [place] [address] documented as of this encounter Visit Diagnoses Not on filedocumented in this encounter Care Teams Escape Wheel Tooth Cutter Relationship Specialty Start Date End Date Vanessa Christian APRN PCP - General Family Medicine 10/21/23 documented as of this encounter
--- OUTSIDE RECORDS SUMMARY | 2024-05-20 09:08 | XMS_ITS | Encounter Summary ---
Author Organization [facility] Address [facility] [place] [address] Care Team Providers Care Music Composer Name Role Phone Vanessa Christian MAURI Primary Care Provider [phone] Encounter Details Date Type Department Care Team (Late st Contact Info) Description 02/14/2024 Orders [place] [phone] Zak Farmer MD [facility] [place] [address] Coronary artery disease, unspecified vessel or lesion type, unspecified whether angina present, unspecified whether [place] or transplanted heart (Primary Dx) Social History [...] AM EDT Office Visit Cardiology at [address] [place] [phone] Neftali Ernandez MD [facility] [place] [address] documented as of this encounter Results * EKG 12 Lead (03/12/2024 2:35 PM EDT) Ventricular rate 59 BPM MUSE SYSTEM Atrial Rate 59 BPM MUSE SYSTEM P-R Interval 190 ms MUSE SYSTEM QRS Duration 92 ms MUSE SYSTEM Q-T Interval 406 ms MUSE SYSTEM QTC Calculated (Bezet) 401 ms MUSE SYSTEM Calculated P [place] -12 degrees MUSE SYSTEM Calculated R [place] 24 degrees MUSE SYSTEM Calculated T [place] 74 degrees MUSE SYSTEM INTERPRETATION Sinus bradycardia T wave abnormality, consider anterior ischemia Abnormal ECG When compared with ECG of 17-FEB-2024 13:24, [place] interval has decreased T wave inversion now evident in Anterior leads Confirmed by Paul Guzman ([id number]) on 03/15/2024 8:36:23 AM MUSE SYSTEM 03/12/2024 2:35 PM EDT 03/15/2024 8:36 AM EDT Zak Farmer MD ECG ORDERABLES MUSE SYSTEM * XR Chest PA & Lateral (Generic) (03/12/2024 1:42 PM EDT) WORKSTATION ID [id number] RAD Anatomical Region Laterality Modality Chest N/A [...] who have questions please contact the health clinical care coordinator that requested your imaging first. ? 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 Electronically signed by: Augie Sanchez MD, [facility]([phone]), at 03/13/2024 8:28 AM Zak Farmer MD IMG DX ORDERABLES documented in this encounter Visit Diagnoses Diagnosis Coronary artery disease, unspecified vessel or lesion type, unspecified whether angina present, unspecified whether [place] or transplanted heart- Primary Coronary artery disease, unspecified vessel or lesion type, unspecified whether angina present, unspecified whether [place] or transplanted heart documented in this encounter Care Teams Music Composer Relationship Specialty Start Date End Date Vanessa Christian APRN PCP - General Family Medicine 10/21/23 documented as of this encounter
--- OUTSIDE RECORDS SUMMARY | 2024-05-20 09:08 | XMS_ITS | Encounter Summary ---
Author Organization [facility] [place] [address] Care Team Providers Care Fish Worm Grower Name Role Phone Vanessa Christian MAURI Primary Care Provider [phone] Encounter Details Date Type Department Care Team (Late st Contact Info) Description 01/10/2024 Orders [place] [phone] Lawson Napoles PA [facility] [place] [address] Screening for cardiovascular condition; Aortic valve stenosis, [...] AM EDT Office Visit Cardiology at [address] [place] [phone] Neftali Ernandez MD [facility] CARDIOLOG[facility] [place] [address] documented as of this encounter Visit Diagnoses Diagnosis Screening for cardiovascular condition Screening for other and unspecified cardiovascular conditions Aortic valve stenosis, etiology of cardiac valve disease unspecified documented in this encounter Care Teams Fish Worm Grower Relationship Specialty Start Date End Date Vanessa Christian APRN PCP - General Family Medicine 10/21/23 documented as of this encounter
--- OUTSIDE RECORDS SUMMARY | 2024-05-20 09:08 | XMS_ITS | Encounter Summary ---
Author Organization [facility] [place] [address] Care Team Providers Care Pressure Control Supervisor Name Role Phone Vanessa Christian MAURI Primary Care Provider [phone] Reason for Visit * Auth/Cert (Routine) Specialty [...] W RHC (WRVU 5.9) Rima Dickinson MD [facility] [place] [address] [facility] Referral ID Status Reason Start Date Expiration Date Visits Re quested Visits Authorized [id number] 1 1 Encounter Details Date Type Department Care Team (Latest Contact Info) Description 02/03/2024 8:06 AM EDT - 02/03/2024 2:54 PM EDT Hospital Encounter Absorption And [place] [address] Rima Dickinson MD [facility] [place] [address] Screening for cardiovascular condition; Aortic valve stenosis, [...] lbs Follow-up Visits Follow up with your field associate in 2-4 weeks Access Site 'Black and Blue' and tenderness is expected during the first week Call if you noted a mass (lump) greater than the size of a ellis Call Office with any Questions and if you have any of the following Clarence Lane M.D Interventional Platen Press Operator Otter Trawler Boatswain #: [phone] * Attachments The following attachments cannot be [...] Lane MD - 02/03/2024 11:48 AM EDT [facility] Interventional Cardiology Adult Pre-Procedure H&P Update: Cardiac Catheterization Karlos Anthony [id number] 1960 Chief Complaint: Aortic stenosis HPI: Mr. [...] is inthe chart Clarence Lane MD Interventional Platen Press Operator 02/03/24 11:48 AM documented in this encounter Miscellaneous Notes * Brief Op Note - Clarence Lane MD - 02/03/2024 12:51 PM EDT Preliminary Cardiac Catheterization Procedure Note: Patient Name: Karlos Anthony : [id number] MR#: [id number] Case Date: 02/03/2024 Otter Trawler Boatswain: Surgeon(s) and Role: * Saira Lua MD [...] AM EDT Office Visit Cardiology at [address] [place] [address] Neftali Ernandez MD [facility] [place] [address] Scheduled Orders Name Type Priority Associated Diagnoses [...] Modality Other Narrative 02/12/2024 3:47 PM EDT ?[facility] ? Cardiac Catheterization/Intervention Report ? Patient Name: Karlos Anthony ? Procedure Date: 02/03/2024 ? A #: [id number] ? Primary Physician: Saira Lua ? Case #: [id number] ? File Name: [id number] ? Catheterization Order Number: [id number] ? [facility] ? Final Report [place], [place] ? Patient Name: ? Karlos Patenaude ? ID#: ?[id number] ? : ?1960 ? Procedure Date: ? [...] Procedure Note Saira Lua MD - 02/12/2024 [facility] Cardiac Catheterization/Intervention Report Patient Name: Karlos Anthony Procedure Date: 02/03/2024 A #: [id number] Primary Physician: Saira Lua Case #: [id number] File Name: [id number] Catheterization Order Number: [id number] [facility] FinalReport [place], [place] Patient Name: Karlos Anthony ID#:[id number] :1960 Procedure Date: February 03, 2024 Case [...] was designated as ASA Class III. The [facility] clinical frailty scale is 3: Managing [...] (Bezet) 372 ms MUSE SYSTEM Calculated P [place] 59 degrees MUSE SYSTEM Calculated R [place] 34 degrees MUSE SYSTEM Calculated T [place] 63 degrees MUSE SYSTEM INTERPRETATION Sinus bradycardia [...] Routine 1227 (Given - Provid er: Rogerio Oliveors) sodium chloride 0.9 % (flush) (BD PosiFlush [...] MD) documented in this encounter Care Teams Pressure Control Supervisor Relationship Specialty Start Date End Date Vanessa Christian APRN PCP - General Family Medicine 10/21/23 documented as of this encounter
--- OUTSIDE RECORDS SUMMARY | 2024-05-20 09:08 | XMS_ITS | Encounter Summary ---
Author Organization [facility] [place] [address] Care Team Providers Care Retail Selling Specialist Name Role Phone Vanessa Christian Lane DOTSON Primary Care Provider [phone] Reason for Referral * Diagnostic Test (Routine) - Closed Specialty Diagnoses / Procedures Referred By Contac t Referred To Contact Radiology Diagnoses Nonrheumatic aortic valve stenosis Procedures CT Chest wo Contrast (Generic) Louisa Cho PA [facility] DR CARDIOTHORACIC [place] [address] [facility] [place] [address] Referral ID Status Reason Start Date Expiration Date V isits Requested Visits Authorized [id number] Closed Specialty Service Requested 01/10/2024 07/11/2025 1 1 Reason for Visit * Diagnostic Test (Routine) - Closed Specialty Diagnoses / Procedures Referred By Contac t Referred To Contact Radiology Diagnoses Nonrheumatic aortic valve stenosis Procedures CT Chest wo Contrast (Generic) Louisa Cho PA [facility] CARDIOTHORACIC [place] [address] [facility] [place] [address] Referral ID Status Reason Start Date Expiration Date V isits Requested Visits Authorized [id number] Closed Specialty Service Requested 01/10/2024 07/11/2025 1 1 Encounter Details Date Type Department Care Team (Latest Contact Info) Description 02/03/2024 7:36 AM EDT - 02/03/2024 8:05 AM EDT Hospital [place] [address] Zak Farmer MD [facility] CARDIOTHORACIC [place] [address] Nonrheumatic aortic valve stenosis Discharge Disposition: Home Social History Tobacco Use Types Packs/Day Years Used Date Smoking Tobacco: Former Cigarettes Smokeless Tobacco: Never Comments:Quit 15 + years ago Alcohol Use Standard Drinks/Week Comments Yes 0 (1 standard drink = 0.6 oz pur e alcohol) rare [facility] Inpatient Questions Answer Date Recorded Does [...] AM EDT Office Visit Cardiology at [address] [place] [address] Neftali Ernandez MD [facility] [place] [address] documented as of this encounter Procedures Procedure Name Priority Date/Time Associated Diagnosis Comments CT CHEST WO CONTRAST (GENERIC) Routine 02/03/2024 7:44 AM EDT Nonrheumatic aortic valve stenosis documented in this encounter Results * CT Chest wo Contrast (Generic) (02/03/2024 7:44 AM EDT) [facility] Signature WORKSTATION ID [id number] RAD Anatomical Region Laterality Modality Chest Computed [...] have questions please contact the health care advocate that requested your imaging first. ? Electronically signed by: Rogerio Wright MD, [facility] ([phone]), at 02/03/2024 10:00 AM Narrative 02/03/2024 10:00 [...] nodule along the minor fissure (series 302 [id number]) and a 8 mm right lower lobe [...] who have questions please contactthe health care advocate that requested your imaging first. Electronically signed by: Rogerio Wright MD, [facility]([phone]), at 02/03/2024 10:00 AM Zak Farmer MD IMG CT ORDERABLES documented in this encounter Visit Diagnoses Diagnosis Nonrheumatic aortic valve stenosis Aortic valve disorders documented in this encounter Care Teams Retail Selling Specialist Relationship Specialty Start Date End Date Vanessa Christian APRN PCP - General Family Medicine 10/21/23 documented as of this encounter
--- OUTSIDE RECORDS SUMMARY | 2024-05-20 09:08 | XMS_ITS | Encounter Summary ---
Author Organization [facility] [place] [address] Care Team Providers Care Dental Practice Manager Name Role Phone Vanessa Christian MAURI Primary Care Provider [phone] Reason for Visit * Auth/Cert (Routine) Specialty [...] ARTERIAL GRAFT (WRVU 7.93) Zak Farmer MD [facility] [place] [address] [facility] Referral ID Status Reason Start Date Expiration Date Visits Re quested Visits Authorized [id number] 1 1 Encounter Details Date Type Department Care Team (Late st Contact Info) Description 02/17/2024 7:35 AM EDT Anesthesia Event Main Operating [place] [phone] Roman York MD [facility] [place] [address] Anesthesia Record Procedure Summary Procedure Name Responsible [...] by Sadiq Woo RN PIV 02/17/24; 0715; [id number] catheter system; 18 gauge; cephalic vein (lateral [...] oz pur e alcohol) rare [facility] Utilities Answer Date Recorded In the past 12 months has th e electric, gas, oil, or water e(ye)BRAIN threatened to shut off services in your [...] place to sleep or slept in a chcf (including now)? No 02/18/2024 DH IPV Inpatient [...] Procedure Summary Date: 02/17/24 Room / Location: [facility] OR [address] [place] [address] MAIN OR Anesthesia Start: 734 Anesthesia Stop: [...] shown include unfiled device data. Patient Location: [facility] Level of Consciousness: Sedated (Pharmacologic/Intentional) Pain Management: PONV: Cardiovascular Status: Hypotension (received treatment) Respiratory Status: Intubated/Ventilated Postoperative Fluid Status: Intravascular EUvolemia Possible Anesthetic Complications: NONE apparent at time of evaluation Final Primary Anesthesia Type: General (The anesthetic type performed was the same as planned.) Comments: * Anesthesia Preprocedure Evaluation - oRman York MD - 02/17/2024 4:28 AM EDT [...] 08/14/2023 ??? Nevus of face 09/26/2023 Right muslim No past surgical history on file. Social [...] AM EDT Office Visit Cardiology at [address] [place] [address] Neftali Ernandez MD [facility] [place] [address] documented as of this encounter Visit [...] mg documented in this encounter Care Teams Dental Practice Manager Relationship Specialty Start Date End Date Vanessa Christian APRN PCP - General Family Medicine 10/21/23 documented as of this encounter
--- OUTSIDE RECORDS SUMMARY | 2024-05-20 09:08 | XMS_ITS | Encounter Summary ---
Author Organization [facility] [place] [address] Care Team Providers Care White Metal Caster Name Role Phone Aparna Jordan MAURI Primary Care Provider [phone] Reason for Visit * Auth/Cert (Routine) Specialty [...] ARTERIAL GRAFT (WRVU 7.93) Hayder Graham MD [facility] [place] [address] [facility] Referral ID Status Reason Start Date Expiration Date Visits Re quested Visits Authorized [id number] 1 1 Encounter Details Date Type Department Care Team (Late st Contact Info) Description 02/17/2024 7:30 AM EDT - 02/17/2024 1:26 PM EDT Surgery [place] [id number] Haydre Graham MD [facility] [place] [address] ENDOSCOPIC HARVEST VEIN(S) FOR CABG (WRVU 0.31) Social History Tobacco Use Types Packs/Day Years Used Date Smoking Tobacco: Former Cigarettes Smokeless Tobacco: Never Comments:Quit 15 + years ago Alcohol Use Standard Drinks/Week Comments Yes 0 (1 standard drink = 0.6 oz pur e alcohol) rare [facility] Utilities Answer Date Recorded In the [...] Patient Age: 63 y.o. Birthdate: 1960 Language: Uruguayan Race: White Ethnicity: Not nor Admit Date: 02/17/2024 Discharge Date: 02/24/24 Attending Physician: Hayder Graham MD Follow-up Recommendations for Providers: Please continue routine management of cardiovascular risk factors including blood pressure, lipids,glucose, etc. Please note any changes to medications. Patient to follow up with PCP, Aparna Jordan APRN, in 1-2 weeks. Patient to follow up with Bpm Solution Architect, Neftali Ernandez MD , in 2 weeks. Patient to follow up with Cardiac Surgeon, Dr. Hayder Graham, with a chest x-ray, EKG, and Echo. 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 Right christianity Past Surgical History: Procedure Laterality Date PRO CABG, ARTERIAL, SINGLE N/A 02/17/2024 @CABG, USING ARTERIAL GRAFT;SINGLE ARTERIAL GRAFT (WRVU 33.75) performed by Hayder Graham MD at [facility] MAIN OR PRO CABG, ARTERY-VEIN, TWO N/A 02/17/2024 @CABG, TWO VENOUS GRAFTS & ARTERIAL GRAFT (WRVU 7.93) performed by Hayder Graham MD at [facility] MAIN OR PRO ENDOSCOPY W/VIDEO-ASST VEIN HARVEST, CABG Left 02/17/2024 ENDOSCOPIC HARVEST VEIN(S) FOR CABG (WRVU 0.31) performed by Hayder Graham MD at [facility] MAIN OR PRO REPLACEMENT PROSTHETIC AORTIC VALVE OPEN W CARDIOPULMONARY BYPASS HOMOGRF/STENT N/A 02/17/2024 @REPLACE AORTIC VALVE, OPEN, W\CPB, W\PROSTHETIC VALVE (WRVU 41.32) performed by Hayder Graham MD at [facility] MAIN OR Prior To Admission [...] insufficiency. He has glaucoma. He used to bacOpen Wager until about 15 years ago. He has undergone prior herniorrhaphy. 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 Major Procedures/Operations: 02/17/24 s/p avr/cabgx3 CABG x 3 JOSE->LAD SVG->dRCA SVG->OM1 EVH from LLE AVR with a 23 mm Inspiris Bioprosthesis Hospital Course: [facility] via the Same [...] Hayder Graham and/or the Cardiac Surgery Physician Community Health Outreach Worker Team may be reached at . Antibiotic [...] Please refer to the card with the [place] [employer] Guidelines for more information. You [...] Dr. Hayder Graham. You may use a [place] Track or treadmill but avoid any pulling [...] friends, go to a movie, go to quaker, etc. Heavy activities: No hunting, skiing, jogging, [...] should resume a low fat, low cholesterol, [employer] [place] [employer] Diet. Driving: No driving until [...] while being managed by your PCP and/or Bpm Solution Architect. For future medication refills, please refer to your PCP and/or Bpm Solution Architect after your discharge from our service. Thank you REMOVE CHEST TUBE SUTURES ON OR AFTER 03/02/24 Home oxygen therapy: N/A Follow up appointments: You should follow up with your PCP, Aparna Jordan APRN, in 1-2 weeks. Our office will schedule an appointment with your Bpm Solution Architect, Neftali Ernandez MD , in 2 weeks. You have an appointment with your Cardiac Surgeon, Dr. Hayder Graham, 4 weeks with a chest x-ray, EKG, and Echo before your appointment. Cardiac Rehabilitation: Karlos Garcia was seen regarding participation in the outpatient Phase 2Cardiac Rehabilitation at [facility]. The patient agrees to a referral to this program. The referral will be sent at discharge and the patient should be contacted by the Program within 1- 2 weeks from discharge. Future Appointments and Orders Future Orders Complete By Expires Echocardiogram Transthoracic [07609 CPT(R)] 03/26/2024 09/25/2024 Process Instructions: Scheduling Instructions: Questions: Where will study be performed?: [facility] Clinics Does the patient have Congenital Heart Disease?: Does patient require sedation?: Sedation rationale: XR Chest PA & Lateral (Generic) [07247 65557 Custom] 03/26/2024 09/25/2024 Process Instructions: Scheduling Instructions: Questions: Portable exam?: Reason for exam and clinical history: s/p avr/cabg Clinical information / jerome questions for radiologist: Stat read required?: Date of injury if applicable: Requested Time: Where will study be performed?: [facility] Radiology Referral to Cardiac Rehab [[id number] Custom] As directed Process Instructions: If no progress note charted, please enter Clinical details in comments. Scheduling Instructions: Questions: My question or request is: s/p AVR/CABG. Cardiac rehab at [facility]. Referral to Home Health [REF34 Custom] As directed Process Instructions: If no progress note charted, please enter Clinical details in comments. Scheduling Instructions: Comments: Please evaluate Karlos Garcia for admission to Home Health. [address] Phone Number: Date of : 1960 Inpatient DOCUMENTATION FOR VNA SERVICES (INCLUDING THOSE PATIENTS WITH MEDICARE COVERAGE REQUIRING HOME VNA SERVICES AND/OR HOSPICE SERVICES) PATIENT'S LOCATION: Karlos Garcia [address] [place] [phone] Railway Signal Operator's Name: self/family In discussion with the attending physician, it is certified that this patient is under their care and that they, or a Nurse Practitioner, or Physician Community Health Outreach Worker who is working directly with them, hada [...] for services as follows: HOME HEALTH AGENCY: [facility] [address] [place] [id number] RN orders: Cardiopulmonary assessment, incisional assessment, assess [...] issues please call the Cardiology Office at [phone] FOR MEDICARE ONLY: (please delete this section [...] care: As above. Signed: NEFTALI MENON PA-C [facility] Section of Cardiac Surgery [facility] [address] FAX [phone] Date: 02/24/2024 CC: Aparna Jordan, MAURI Jordan, Aparna Sherman APRN [address] [place] [address] documented in this encounter Discharge Instructions * [...] Hayder Graham and/or the Cardiac Surgery Physician Community Health Outreach Worker Team may be reached at . Antibiotic [...] Please refer to the card with the [employer] Guidelines for more information. You [...] Dr. Hayder Graham. You may use a [place] Track or treadmill but avoid any pulling [...] friends, go to a movie, go to quaker, etc. Heavy activities: No hunting, skiing, jogging, [...] should resume a low fat, low cholesterol, [employer] Diet. Driving: No driving until [...] while being managed by your PCP and/or Bpm Solution Architect. For future medication refills, please refer to your PCP and/or Bpm Solution Architect after your discharge from our service. Thank you REMOVE CHEST TUBE SUTURES ON OR AFTER 03/02/24 Home oxygen therapy: N/A Follow up appointments: You should follow up with your PCP, Aparna Jordan APRN, in 1-2 weeks. Our office will schedule an appointment with your Bpm Solution Architect, Neftali Ernandez MD , in 2 weeks. You have an appointment with your Cardiac Surgeon, Dr. Hayder Graham, 4 weeks with a chest x-ray, EKG, and Echo before your appointment. Cardiac Rehabilitation: Karlos Garcia was seen regarding participation in the outpatient Phase 2Cardiac Rehabilitation at [facility]. The patient agrees to a [...] 0600 and on the weekends please page [phone]. * Eric Barahona PA - 02/23/2024 9:27 [...] 0600 and on the weekends please page [phone]. * Tiffanie Owens - 02/22/2024 2:48 PM EDT Physical Therapy Note 3 Patient profile: Karlos Gacria is a 63 y.o. male [...] reports his dtr is coming from [place] to stay upon d/c for 10 days. 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 * Kelley Hinson PTA - 02/21/2024 10:15 [...] reports his dtr is coming from [place] to stay upon d/c for 10 days. 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 * Kelley Hinson PTA - 02/20/2024 3:32 PM EDT 02/20/24 0770 Evaluation & Treatment Document Type contact Total Minutes, Physical Therapy 0 Comment, Session Not Performed Checked in w/ pt this PM for ongoing PT services, pt politely declined, stating he had been dealing w/ nausea all day, made plan to see him tomorrow morning, will f/u at that time Kelley Hinson PTA Pager: [phone] Physical Therapy Inpatient Rehab Department * Louisa [...] 0600 and on the weekends please page [phone]. * Maris Benavides, PT - 02/19/2024 11:22 [...] reports his dtr is coming from [place] to stay upon d/c for 10 days. 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 Precautions/Special Considerations: [...] outlined inthis evaluation. MARIS BENAVIDES, PT Pager: [phone] Physical Therapy Inpatient Rehabilitation Department Time IN / OUT: 4524-4888 Total Time: 38 (eval) minutes; * Antonio [...] 0600 and on the weekends please page [phone]. * Minnie Begum PA - 02/18/2024 8:25 [...] site CDI with SANJANA wrap Tubes/Lines/Drains: RIJ/PAC, Estrella, Med Ctx, L [...] 0600 and on the weekends please page [phone]. * Kim aH RCP - 02/17/2024 2:25 PM EDT Respiratory [...] plan since last visit. Hayder Graham MD [phone] Source Note - Hayder Graham MD - [...] given written informed consent. Hayder Graham MD [phone] * Hayder Graham MD - 02/17/2024 7:00 [...] insufficiency. He has glaucoma. He used to bacOpen Wager until about 15 years ago. He has [...] given written informed consent. Hayder Graham MD [phone] documented in this encounter Miscellaneous Notes * [...] information for follow-up Home Health & Hospice, [address] [place] [address] Cardiac Rehab, [facility] [address] [place] [address] [place] [address] Transportation: family or friend will provide Functional status prior to admission: Independent Home Environment: Others in the home: alone. Current Living Arrangements: home/apartment/condo. Accessibility Concerns:a few steps to enter 1 floor home. Current Functional Ability: Assistive Person and Equipment DME used at home: none DME Needed at Discharge: N/A Patient is insured through: Primary Insurance: [facility] Payor: [facility] / Plan: [facility] PPO / Product Type: *No [...] pain managed with scheduled Tylenol. Worked with [employer]. Ambulated in the roque multiple times during [...] anticipated Patient is insured through: Primary Insurance: [facility] Payor: [facility] / Plan: [facility] PPO / Product Type: *No Product type* / Secondary Insurance: N/A Last Physical Therapy Recommendation: home with home health (Str coming to stay for a week or two upon d/c) with to be determined (owns rolling walker, shower seat) Plan for discharge is: Home w/ Services Outpatient Agency/Support Group Needs: Homecare agency Home Health Services: Physical Therapy, Registered Nurse Agency Referrals: [facility]. [address] [place] [id number] Transportation: family or friend will provide Barriers to discharge: Discharge planning Plan going forward: Service Care Management will continue to follow and assist with discharge planning and coordination of care as indicated. Anticipated Date of Discharge: 02/22/2024 Rhett Bell RN RN/CM - Cellphone: [phone] Pager: [phone] Covering Service RN/CM * Plan of Care [...] Yang RN - 02/19/2024 10:44 AM EDT [facility] CARDIAC REHABILITATION Karlos Garcia was seen today regarding participation in the outpatient Phase 2 Cardiac Rehabilitation at [facility]. The patient agrees to a [...] Hypertension 08/14/2023 Nevus of face 09/26/2023 Right christianity Hospitalizations Within the Past 30 Days: no previous admission in last 30 days Current Decision-Making Capacity: Self If AD's have not been completed the following surrogate would be surrogate decision maker per [place] surrogate decision making law. (Only good for 180 days) Any patient receiving care in [place] must abide by [place] law. The hierarchy for surrogate decision making [...] The agent with financial power of civil rights attorney or a conservator appointed in accordance [...] In the past 12 months has the [employer], gas, oil, or water Element ID threatened to shut off services in your [...] Home Address confirmed as: [address] [facility] [address] Physical address: [address] [facility], [address] Social & Family Supports: All names listed [...] Information: none noted Health/Prescription Coverage: Primary Insurance: [facility] Payor: [facility] / Plan: [facility] PPO / Product Type: *No Product type* / Secondary Insurance: N/A ; Prescription Coverage: Yes Preferred Pharmacy: [id number] [address] [place] Status: Patient is a : No Primary Care Provider confirmed: Aparna Jordan, OCCUPATIONAL HEALTH PROFESSIONAL [phone] Patient/Caregiver Goals of Treatment: dc to home Potential Needs for Transition of Care: home health care Agency Referrals: I have met with the patient to: discuss discharge planning needs. provide the [facility], Office of Care Management letter from the Curriculum And Assessment Director pertaining to rehab referrals. provide a letter describing our affiliations within the [facility] and educate about their right to choose where referrals are sent. provide a list of Home Health Agencies / Durable Medical Equipment vendors which serve their preferred geographic area. provided patient with [facility] Star Quality Rating handout. They have requested referrals to: [facility] [address] [place] [address] Note routed to a Slat Basket Maker Helper Machine who will communicate referrals to facilities and [...] Cielo, will be coming in from [place] on 02/18, to stay with him , in his home ,at discharge. Pt states that she is able to provide support/assist for any needs that he may have when discharged. Plan: dc to home A member of the Care Management team will continue to monitor progress, follow for continuity of care and assist with transition of care planning. Reina Greene RN CM, BSN, [facility]- Ext [phone] * Plan of Care - Binta Trinidad [...] Operative Note Patient Name: Karlos Garcia : [id number] MR#: [id number] Case Date: 02/17/2024 Surgeon: Surgeon(s) and Role: * Hayder Graham MD - Primary * Neftali Menon PA - Physician Community Health Outreach Worker Preoperative diagnosis: CAD Postoperative diagnosis: CAD, intraoperative [...] mL Drains: Mediastinal and Left pleural Disposition: [facility] Condition: doing well without problems Attestation: Case Date: 02/17/2024 I performed this procedure without the involvement of a resident. HAYDER GRAHAM MD 02/17/2024 * Op Note - Hayder Graham MD - 02/17/2024 8:20 AM EDT [facility] Operative Note Patient Name: Karlos Garcia : [id number] MR#: [id number] Case Date: 02/17/2024 Surgeon: Surgeons and Role: * Haydre Graham MD - Primary * Netfali Menon PA - Physician Community Health Outreach Worker Preoperative diagnosis: CAD Postoperative diagnosis: CAD, intraoperative [...] mL Drains: Mediastinal and Left pleural Disposition: [facility] Procedure Description: The patient was [...] AM EDT Office Visit Cardiology at [address] [address] Neftali Ernandez MD [facility] [place] [address] Scheduled Orders Name Type Priority Associated Diagnoses [...] Aortic Valve Open W Cardiopulmonary Bypass Homogrf/Stent (41314) Yes 02/17/2024 7:28 AM EDT CAD Cabg, Artery-Vein, Two (52143) Yes 02/17/2024 7:28 AM EDT CAD Cabg, Arterial, Single (47477) Yes 02/17/2024 7:28 AM EDT CAD Endoscopy W/Video-Asst Vein [place], Cabg (28702) Yes 02/17/2024 7:28 AM EDT CAD POCT GLUCOSE Routine 02/17/2024 6:38 AM EDT TRANSESOPHAGEAL ECHOCARDIOGRAM IN THE OR Routine 02/17/2024 6:33 AM EDT Aortic valve stenosis, etiology of cardiac valve disease unspecified LAB SCAN 02/17/2024 12:00 AM EDT IMPLANTABLE DEVICES SCAN 02/17/2024 12:00 AM EDT documented in this encounter Results * Potassium (02/24/2024 4:42 AM EDT) Potassium 4.0 3.5 - 5.0 mmol/L [facility] Comment: Please note: ??Patients with WBC >100,000 may have falsely elevated Potassium levels. ??For accurate Potassium quantification in these patients send serum separator tube (gold top) for subsequent determinations. ??Contact the Clinical Chemistry Laboratory if there are any questions. Blood 02/24/2024 4:42 AM EDT 02/24/2024 4:59 AM EDT Narrative Resulting Agency Comment Spec In Lab Hayder Graham MD CHEMISTRY ORDERABLE S [facility] [place] [address] * (ABNORMAL) Basic Metabolic Panel (non-fasting) (02/23/2024 4:24 AM EDT) Glucose 117 65 - 199 mg/dL [facility] Comment:Diabetes: >=200 mg/d L plus symptoms Blood Urea Nitrogen 18 10 - 20 mg/dL [facility] Creatinine 0.71(L) 0.80 - 1.50 mg/dL [facility] Sodium 138 135 - 145 mmol/L [facility] Potassium 4.4 3.5 - 5.0 mmol/L [facility] Comment: Please note: ??Patients with WBC >100,000 may have falsely elevated Potassium levels. ??For accurate Potassium quantification in these patients send serum separator tube (gold top) for subsequent determinations. ??Contact the Clinical Chemistry Laboratory if there are any questions. Chloride 101 98 - 107 mmol/L [facility] Carbon Dioxide 26 22 - 31 mmol/L [facility] Anion Gap 11 5 - 15 mmol/L [facility] Calcium 8.8 8.5 - 10.5 mg/dL [facility] Est Glomerular Filtration Rate 102 >=60 mL/min/1. 73 m?? [facility] Comment: This patient's estimated GFR [...] In Lab Romeo Carpio MD CHEMISTRY ORDERABLES [facility] [place] [address] * Potassium (02/22/2024 4:30 AM EDT) Potassium 3.5 3.5 - 5.0 mmol/L [facility] Comment: Please note: ??Patients with WBC >100,000 may have falsely elevated Potassium levels. ??For accurate Potassium quantification in these patients send serum separator tube (gold top) for subsequent determinations. ??Contact the Clinical Chemistry Laboratory if there are any questions. Blood 02/22/2024 4:30 AM EDT 02/22/2024 5:12 AM EDT Narrative Resulting Agency Comment Spec In Lab Hayder Graham MD CHEMISTRY ORDERABLE S [facility] [place] [address] * (ABNORMAL) Basic Metabolic Panel (non-fasting) (02/21/2024 9:45 AM EDT) Glucose 123 65 - 199 mg/dL [facility] Comment:Diabetes: >=200 mg/d L plus symptoms Blood Urea Nitrogen 22(H) 10 - 20 mg/dL [facility] Creatinine 0.78(L) 0.80 - 1.50 mg/dL [facility] Sodium 140 135 - 145 mmol/L [facility] Potassium 3.9 3.5 - 5.0 mmol/L [facility] Comment: Please note: ??Patients with WBC >100,000 may have falsely elevated Potassium levels. ??For accurate Potassium quantification in these patients send serum separator tube (gold top) for subsequent determinations. ??Contact the Clinical Chemistry Laboratory if there are any questions. Chloride 100 98 - 107 mmol/L [facility] Carbon Dioxide Not Perf 22 - 31 [facility] Comment:Add-on request. Samp le too old to perform test. Anion Gap Unable to Calculate 5 - 15 mmol/L [facility] Calcium 8.6 8.5 - 10.5 mg/dL [facility] Est Glomerular Filtration Rate 100 >=60 mL/min/1 .73 m?? [facility] Comment: This patient's estimated GFR [...] In Lab Romeo Carpio MD CHEMISTRY ORDERABLES [facility] [place] [address] * Lactate, whole blood, send to lab ([facility]) (02/21/2024 9:45 AM EDT) [facility] Lactate WB 2.0 0.5 - 2.2 mmol/L [facility] Blood 02/21/2024 9:45 AM EDT 02/21/2024 9:52 AM EDT Narrative Resulting Agency Comment Spec In Lab Hayder Graham MD CHEMISTRY ORDERABLE S Performing Organization Address [facility]/ZIP Co de Phone Number [facility] [place] [address] * (ABNORMAL) Hepatic Function Panel (02/21/2024 9:45 AM EDT) [facility] Protein, Total 5.7(L) 6.1 - 8.0 g/dL [facility] Albumin 3.3 3.2 - 5.2 g/dL [facility] Aspartate Aminotransferase 13 0 - 39 unit/L [facility] Alanine Aminotransferase 16 0 - 55 unit/L [facility] Alkaline Phosphatase 63 40 - 130 unit/L [facility] Bilirubin, Total 0.6 0.2 - 1.3 mg/dL [facility] Bilirubin, Direct 0.2 0.0 - 0.3 mg/dL [facility] Blood 02/21/2024 9:45 AM EDT 02/21/2024 9:52 AM EDT Narrative Resulting Agency Comment Spec In Lab Hayder Graham MD CHEMISTRY ORDERABLE S Performing Organization Address City/[facility]/ZIP Co de Phone Number [facility] [place] [address] * Lipase (02/21/2024 9:45 AM EDT) Lipase 56 0 - 60 unit/L [facility] Blood 02/21/2024 9:45 AM EDT 02/21/2024 9:52 AM EDT Narrative Resulting Agency Comment Spec In Lab Hayder Graham MD CHEMISTRY ORDERABLE S Performing Organization Address City/[facility]/ZIP Co de Phone Number [facility] [place] [address] * Amylase (02/21/2024 9:45 AM EDT) Amylase 69 28 - 100 unit/L [facility] Blood 02/21/2024 9:45 AM EDT 02/21/2024 9:52 AM EDT Narrative Resulting Agency Comment Spec In Lab Hayder Graham MD CHEMISTRY ORDERABLE S Performing Organization Address [facility] Co de Phone Number [facility] [place] [address] * Potassium (02/21/2024 3:08 AM EDT) [facility] Potassium 3.8 3.5 - 5.0 mmol/L [facility] Comment: Please note: ??Patients with [...] MD CHEMISTRY ORDERABLE S Performing Organization Address City/[facility]/ZIP Co de Phone Number [facility] [place] [address] * XR Chest PA & Lateral (Generic) (02/20/2024 10:19 AM EDT) [facility] WORKSTATION ID [id number] RAD Anatomical Region Laterality Modality Chest N/A Digital Radiogra phy Impressions 02/20/2024 1:11 PM EDT Small pleural effusions. No pneumothorax Thank you for letting us participate in the care of this patient. ??If you are a health care provider and have any questions regarding this report, please contact the number below. ??For patients who have questions please contact the health healthcare recruiter that requested your imaging first. ? Narrative 02/20/2024 1:11 PM EDT EXAMINATION: XR CHEST PA AND LATERAL (GENERIC) CLINICAL HISTORY: s/p AVR/CABGx3 TECHNIQUE: PA and lateral views of the chest COMPARISON: 02/17/2024 FINDINGS: Support devices: Interval removal of [place]-Kaila catheter, endotracheal tube and mediastinal chest tubes The cardiac silhouette is stable status post median sternotomy, CABG and aortic valve replacement. There are small pleural effusions. No pneumothorax. Procedure Note Rogerio Cruz MD - 02/20/2024 EXAMINATION: XR CHEST PA AND LATERAL (GENERIC) CLINICAL HISTORY: s/p AVR/CABGx3 TECHNIQUE: PA and lateral views of the chest COMPARISON: 02/17/2024 FINDINGS: Support devices: Interval removal of [place]aila catheter, endotracheal tubeand mediastinal chest tubes The [...] who have questions please contactthe health healthcare recruiter that requested your imaging first. Hayder Graham MD IMG DX ORDERABLES * Scan, Peripheral Blood (02/20/2024 4:23 AM EDT) Pathologist [facility] Plat estimate Decreased [facility] RBC Morphology Normal [facility] Blood 02/20/2024 4:23 AM EDT 02/20/2024 4:42 AM EDT Narrative Resulting Agency Comment Spec In Lab Minnie FRENCH HEMATOLOGY CECILIO ALEMAN [facility] [place] [address] * (ABNORMAL) Differential, Automated (02/20/2024 4:23 AM EDT) [facility] Neutrophil % 81.7 % [facility] Neutrophil Absolute 10.37(H) 1.70 - 6.10 x10(3)/mc L [facility] Lymph % 7.4 % [facility] Lymphocytes Abs 0.9 0.9 - 3.2 x10(3)/mc L [facility] Monocyte % 9.7 % [facility] Monocyte Abs 1.2(H) 0.3 - 0.9 x10(3)/mc L [facility] Eos % 0.1 % [facility] Eosinophils Abs 0.0 0.0 - 0.4 x10(3)/mc L [facility] Basophil % 0.2 % [facility] Baso Absolute 0.0 0.0 - 0.1 x10(3)/mc L [facility] Immature Gran % 0.90 % [...] Absolute 0.12(H) 0.00 - 0.04 x10(3)/mc L [facility] Blood 02/20/2024 4:23 AM EDT 02/20/2024 4:42 AM EDT Narrative Resulting Agency Comment Spec In Lab Minnie FRENCH HEMATOLOGY CECILIO ALEMAN [facility] [place] [address] * (ABNORMAL) Hemogram (02/20/2024 4:23 AM EDT) White Blood Cell 12.7(H) 4.0 - 9.5 x10(3)/mc L [facility] Red Blood Cell 4.26(L) 4.58 - 5.54 x10(6)/mc L [facility] Hemoglobin 12.3(L) 13.7 - 16.5 g/dL [facility] Hematocrit 37.1(L) 40.5 - 48.5 % [facility] Mean Cell Volume 87.1 82.9 - 93.1 fL [facility] Mean Cell Hemoglobin 28.9 27.5 - 32.1 pg [facility] Mean Cell Hemoglobin Concentration 33.2 32.0 - 35.7 g/dL [facility] Platelet 88(L) 145 - 357 x10(3)/mc L [facility] RDW Standard Deviation 43.5 36.0 - 45.0 fL [facility] RDW coefficient of variation 13.7 11.4 - 13.8 % [facility] Mean Platelet Volume 10.2 7.6 - 12.9 fL [facility] NRBC% auto 0.0 % [facility] NRBC Absolute 0.000 0.000 - 0.000 x10(3)/mc L [facility] Blood 02/20/2024 4:23 AM EDT 02/20/2024 4:42 AM EDT Narrative Resulting Agency Comment Spec In Lab Minnie FRENCH HEMATOLOGY CECILIO ALEMAN [facility] [place] [address] * (ABNORMAL) Basic Metabolic Panel (non-fasting) (02/20/2024 4:23 AM EDT) Glucose 113 65 - 199 mg/dL [facility] Comment:Diabetes: >=200 mg/d L plus symptoms Blood Urea Nitrogen 20 10 - 20 mg/dL [facility] Comment:result rechecked-[place] Creatinine 0.71(L) 0.80 - 1.50 mg/dL [facility] Sodium 135 135 - 145 mmol/L [facility] Potassium 3.9 3.5 - 5.0 mmol/L [facility] Comment: Please note: ??Patients with WBC >100,000 may have falsely elevated Potassium levels. ??For accurate Potassium quantification in these patients send serum separator tube (gold top) for subsequent determinations. ??Contact the Clinical Chemistry Laboratory if there are any questions. Chloride 102 98 - 107 mmol/L [facility] Carbon Dioxide 25 22 - 31 mmol/L [facility] Anion Gap 8 5 - 15 mmol/L [facility] Calcium 8.7 8.5 - 10.5 mg/dL [facility] Comment:result rechecked-KS Est Glomerular Filtration Rate 102 >=60 mL/min/1. 73 m?? [facility] Comment: This patient's estimated GFR [...] ORDERABLE S Performing Organization Address [facility] Co de Phone Number [facility] [place] [address] * Potassium (02/19/2024 3:57 AM EDT) Potassium 4.3 3.5 - 5.0 mmol/L [facility] Comment: Please note: ??Patients with [...] ORDERABLE S Performing Organization Address [facility] Co de Phone Number [facility] [place] [address] * POCT Glucose (02/18/2024 8:24 AM EDT) Glucose, POC 157 65 - 199 mg/dL [facility] Comment: Supplemental ranges: <140 mg/dL before meals <180 mg/dL all other times of the day Blood 02/18/2024 8:24 AM EDT 02/18/2024 8:24 AM EDT Hayder Graham MD POINT OF CARE [place] [address] * Scan, Peripheral Blood (02/18/2024 1:40 AM EDT) Pathologist [facility] Plat estimate Decreased [facility] RBC Morphology Normal [facility] Blood 02/18/2024 1:40 AM EDT 02/18/2024 1:56 AM EDT Narrative Resulting Agency Comment Spec In Lab Neftali FRENCH HEMATOLOGY ORDER OLE Performing Organization Address City/[facility]/ZIP Co de Phone Number [facility] [place] [address] * (ABNORMAL) Differential, Automated (02/18/2024 1:40 AM EDT) [facility] Neutrophil % 87.1 % [facility] Neutrophil Absolute 15.03(H) 1.70 - 6.10 x10(3)/mc L [facility] Lymph % 3.0 % [facility] Lymphocytes Abs 0.5(L) 0.9 - 3.2 x10(3)/mc L [facility] Monocyte % 9.1 % [facility] Monocyte Abs 1.6(H) 0.3 - 0.9 x10(3)/mc L [facility] Eos % 0.0 % [facility] Eosinophils Abs 0.0 0.0 - 0.4 x10(3)/mc L [facility] Basophil % 0.2 % [facility] Baso Absolute 0.0 0.0 - 0.1 x10(3)/mc L [facility] Immature Gran % 0.60 % [facility] Comment: Immature granulocytes(IG's)percentage and absolute count will include metamyelocytes, myelocytes, and promyelocytes. Blood smears from CBCs yielding IG's will be scanned manually for concordance. If this scan disagrees with the automated IG or if promyelocytes are noted, a manual differential will be performed. Immature Gran Absolute 0.10(H) 0.00 - 0.04 x10(3)/ L [facility] Blood 02/18/2024 1:40 AM EDT 02/18/2024 1:56 AM EDT Narrative Resulting Agency Comment Spec In Lab Neftali FRENCH HEMATOLOGY ORDER OLE [facility] [place] [address] * (ABNORMAL) Hemogram (02/18/2024 1:40 AM EDT) White Blood Cell 17.2(H) 4.0 - 9.5 x10(3)/[facility] Red Blood Cell 4.71 4.58 - 5.54 x10(6)/[facility] Hemoglobin 13.7 13.7 - 16.5 g/dL [facility] Hematocrit 39.2(L) 40.5 - 48.5 % [facility] Mean Cell Volume 83.2 82.9 - 93.1 [facility] Mean Cell Hemoglobin 29.1 27.5 - 32.1 pg [facility] Mean Cell Hemoglobin Concentration 34.9 32.0 - 35.7 g/dL [facility] Platelet 147 145 - 357 x10(3)/mc L [facility] RDW Standard Deviation 39.9 36.0 - 45.0 [facility] RDW coefficient of variation 13.2 11.4 - 13.8 % [facility] Mean Platelet Volume 9.9 7.6 - 12.9 [facility] NRBC% auto 0.0 % [facility] NRBC Absolute 0.000 0.000 - 0.000 x10(3)/ L [facility] Blood 02/18/2024 1:40 AM EDT 02/18/2024 1:56 AM EDT Narrative Resulting Agency Comment Spec In Lab Neftali FRENCH HEMATOLOGY ORDER OLE [facility] [place] [address] * (ABNORMAL) Basic Metabolic Panel (non-fasting) (02/18/2024 1:40 AM EDT) Glucose 176 65 - 199 mg/dL [facility] Comment:Diabetes: >=200 mg/d L plus symptoms Blood Urea Nitrogen 10 10 - 20 mg/dL [facility] Creatinine 0.65(L) 0.80 - 1.50 mg/dL [facility] Sodium 135 135 - 145 mmol/L [facility] Potassium 4.2 3.5 - 5.0 mmol/L [facility] Comment: Please note: ??Patients with WBC >100,000 may have falsely elevated Potassium levels. ??For accurate Potassium quantification in these patients send serum separator tube (gold top) for subsequent determinations. ??Contact the Clinical Chemistry Laboratory if there are any questions. Chloride 106 98 - 107 mmol/L [facility] Carbon Dioxide 20(L) 22 - 31 mmol/L [facility] Anion Gap 9 5 - 15 mmol/L [facility] Calcium 7.6(L) 8.5 - 10.5 mg/dL [facility] Est Glomerular Filtration Rate 105 >=60 mL/min/1. 73 m?? [facility] Comment: This patient's estimated GFR [...] Lab Hayder Graham MD CHEMISTRY ORDERABLE S [facility] [place] [address] * (ABNORMAL) Troponin (02/18/2024 1:40 AM EDT) Troponin-T, High Sensitivity 342(H) <=22 ng/L [facility] Comment: This patient's troponin T [...] troponin value can be found in the [facility] Laboratory Test Catalog Troponin - [facility] Laboratory Test Catalog Reference: Fourth [place] Definition of Myocardial Infarction. Journal of the [employer] 2018;72:3291-0506 Blood 02/18/2024 1:40 AM EDT 02/18/2024 1:56 AM EDT Narrative Resulting Agency Comment Spec In Lab Hayder Graham MD CHEMISTRY ORDERABLE S [facility] [place] [address] * POCT Glucose (02/17/2024 8:13 PM EDT) Glucose, POC 142 65 - 199 mg/dL [facility] Comment: Supplemental ranges: <140 mg/dL before meals <180 mg/dL all other times of the day Blood 02/17/2024 8:13 PM EDT 02/17/2024 8:13 PM EDT Hayder Graham MD POINT OF CARE TEST ORDERABLES Performing Organization Address [facility] Co de Phone Number [facility] [place] [address] * POCT Glucose (02/17/2024 5:42 PM EDT) Glucose, POC 160 65 - 199 mg/dL [facility] Comment: Supplemental ranges: <140 mg/dL before meals <180 mg/dL all other times of the day Blood 02/17/2024 5:42 PM EDT 02/17/2024 5:42 PM EDT Hayder Graham MD POINT OF CARE TEST ORDERABLES Performing Organization Address [facility] Co de Phone Number [facility] [place] [address] * Hemoglobin (02/17/2024 5:42 PM EDT) Hemoglobin 13.7 13.7 - 16.5 g/dL [facility] Blood 02/17/2024 5:42 PM EDT 02/17/2024 6:10 PM EDT Narrative Resulting Agency Comment Spec In Lab Hayder Graham MD HEMATOLOGY ORDERABL ES Performing Organization Address City/[facility]/ZIP Co de Phone Number [facility] [place] [address] * Potassium (02/17/2024 5:42 PM EDT) Potassium 4.3 3.5 - 5.0 mmol/L [facility] Comment: Please note: ??Patients with WBC >100,000 may have falsely elevated Potassium levels. ??For accurate Potassium quantification in these patients send serum separator tube (gold top) for subsequent determinations. ??Contact the Clinical Chemistry Laboratory if there are any questions. Blood 02/17/2024 5:42 PM EDT 02/17/2024 6:10 PM EDT Narrative Resulting Agency Comment Spec In Lab Hayder Graham MD CHEMISTRY ORDERABLE S [facility] [place] [address] * (ABNORMAL) BLOOD GAS 2 ARTERIAL (02/17/2024 4:18 PM EDT) pH, Arterial 7.34(L) 7.35 - 7.45 [facility] PCO2, Arterial 40 35 - 45 mmHg [facility] PO2, Arterial 78(L) 85 - 104 mmHg [facility] Bicarbonate, Arterial 20.8 20.0 - 26.0 mmol/L [facility] Base Excess, Arterial -5.1(L) -3.0 - 3.0 mmol/L [facility] Hgb Blood Gas 14.6 13.7 - 16.5 g/dL [facility] Oxyhemoglobin, Arterial 93.0(L) 94.0 - 97.0 % [facility] Carboxyhemoglob in, Arterial 0.3 % [facility] Comment: Nonsmokers: 0.5-1.5% COHB Smokers: Variable, but usually less than 10% Toxic: 20-30% COHB Lethal: Greater than 60% COHB Methemoglobin, Arterial 0.8 <=1.5 % [facility] Na Whole Blood 136 135 - 145 mmol/L [facility] K Whole Blood 4.1 3.5 - 5.0 mmol/L [facility] Comment: Please note: Patients with WBC >100,000 may have falsely elevated Potassium levels. Contact the Clinical Chemistry Laboratory if there are any questions. ICa Whole Blood 1.10(L) 1.15 - 1.33 mmol/L [facility] Comment: Note: ??Total bilirubin higher than 20 mg/dL may lead to falsely low ionized calcium. CL Whole Blood 105 98 - 107 mmol/L [facility] Gluc Whole Bld 159 65 - 199 mg/dL [facility] Comment:Diabetes: >=200 mg/d L plus symptoms. Lactate WB 1.2 0.5 - 2.2 mmol/L [facility] FIO2 Art 40 % [facility] PF Ratio Art 195 [facility] Blood 02/17/2024 4:18 PM EDT 02/17/2024 4:18 PM EDT Hayder Graham MD POINT OF CARE TEST ORDERABLES [facility] [place] [address] * XR Chest One View (02/17/2024 1:44 PM EDT) [employer] WORKSTATION ID [id number] RAD Anatomical Region Laterality Modality Chest N/A Digital Radiogra phy Impressions 02/17/2024 2:12 PM EDT 1. ??No definite pleural fluid collection or pneumothorax. 2. ??Right IJ [place]a catheter tip terminates in a descending branch [...] have questions please contact the health healthcare recruiter that requested your imaging first. ? Narrative 02/17/2024 2:12 PM EDT EXAMINATION: XR CHEST ONE VIEW CLINICAL HISTORY: s/p avr/cabg eval effusions TECHNIQUE: 1 view of the chest COMPARISON: Chest x-ray 01/09/2024, chest CT 02/03/2024 FINDINGS: ET tube tip terminates 5.2 cm above the carlos. Right IJ [place]aila catheter tip terminates in a descending branch [...] 5.2 cm above the carlos. Right IJ [place]-Ganzcatheter tip terminates in a descending branch of [...] fluid collection or pneumothorax. 2. Right IJ [place] catheter tip terminates in a descending branch ofthe right pulmonary artery. Suggest catheter retraction. 3. Additional support lines and tubes as above. Thank you for letting us participate in the care of this patient. If youare a health care provider and have any questions regarding this report,please contact the number below. For patients who have questions please contactthe health healthcare recruiter that requested your imaging first. Hayder Graham MD IMG DX ORDERABLES * (ABNORMAL) BLOOD GAS 2 ARTERIAL (02/17/2024 1:31 PM EDT) pH, Arterial 7.35 7.35 - 7.45 [facility] PCO2, Arterial 39 35 - 45 mmHg [facility] PO2, Arterial 320(H) 85 - 104 mmHg [facility] Bicarbonate, Arterial 21.4 20.0 - 26.0 mmol/L [facility] Base Excess, Arterial -4.2(L) -3.0 - 3.0 mmol/L [facility] Hgb Blood Gas 14.1 13.7 - 16.5 g/dL [facility] Oxyhemoglobin, Arterial 97.9(H) 94.0 - 97.0 % [facility] Carboxyhemoglob in, Arterial 0.3 % [facility] Comment: Nonsmokers: 0.5-1.5% COHB Smokers: Variable, but usually less than 10% Toxic: 20-30% COHB Lethal: Greater than 60% COHB Methemoglobin, Arterial 0.7 <=1.5 % [facility] Na Whole Blood 137 135 - 145 mmol/L [facility] K Whole Blood 4.2 3.5 - 5.0 mmol/L [facility] Comment: Please note: Patients with WBC >100,000 may have falsely elevated Potassium levels. Contact the Clinical Chemistry Laboratory if there are any questions. ICa Whole Blood 1.13(L) 1.15 - 1.33 mmol/L [facility] Comment: Note: ??Total bilirubin higher than 20 mg/dL may lead to falsely low ionized calcium. CL Whole Blood 108(H) 98 - 107 mmol/L [facility] Gluc Whole Bld 136 65 - 199 mg/dL [facility] Comment:Diabetes: >=200 mg/d L plus symptoms. Lactate WB 1.1 0.5 - 2.2 mmol/L [facility] FIO2 Art 100 % [facility] PF Ratio Art 320 [facility] Blood 02/17/2024 1:31 PM EDT 02/17/2024 1:31 PM EDT Hayder Graham MD POINT OF CARE TEST ORDERABLES Performing Organization Address City/State/[facility] Co de Phone Number [facility] [place] [address] * (ABNORMAL) Coox2 (02/17/2024 1:21 PM EDT) pO2, Coox 44 mmHg [facility] Hgb Blood Gas 13.1(L) 13.7 - 16.5 g/dL [facility] Oxyhemoglobin, Coox 76.4 % [facility] Carboxyhemoglo bin, Coox 0.3 % [facility] Comment: Nonsmokers: 0.5-1.5% COHB Smokers: Variable, but usually less than 10% Toxic: 20-30% COHB Lethal: Greater than 60% COHB Methemoglobin, Coox 0.8 <=1.5 % [facility] Source Coox Mixed Venous [facility] Blood 02/17/2024 1:21 PM EDT 02/17/2024 1:21 PM EDT Hayder Graham MD POINT OF CARE TEST ORDERABLES [facility] [place] [address] * (ABNORMAL) BLOOD GAS 2 ARTERIAL (02/17/2024 12:14 PM EDT) pH, Arterial 7.39 7.35 - 7.45 [facility] PCO2, Arterial 40 35 - 45 mmHg [facility] PO2, Arterial 338(H) 85 - 104 mmHg [facility] Bicarbonate, Arterial 23.7 20.0 - 26.0 mmol/L [facility] Base Excess, Arterial -1.3 -3.0 - 3.0 mmol/L [facility] Hgb Blood Gas 11.0(L) 13.7 - 16.5 g/dL [facility] Oxyhemoglobin, Arterial 98.8(H) 94.0 - 97.0 % [facility] Carboxyhemoglob in, Arterial 0.3 % [facility] Comment: Nonsmokers: 0.5-1.5% COHB Smokers: Variable, but usually less than 10% Toxic: 20-30% COHB Lethal: Greater than 60% COHB Methemoglobin, Arterial 0.3 <=1.5 % [facility] Na Whole Blood 135 135 - 145 mmol/L [facility] K Whole Blood 5.1(H) 3.5 - 5.0 mmol/L [facility] Comment: Please note: Patients with WBC >100,000 may have falsely elevated Potassium levels. Contact the Clinical Chemistry Laboratory if there are any questions. ICa Whole Blood 1.13(L) 1.15 - 1.33 mmol/L [facility] Comment: Note: ??Total bilirubin higher than 20 mg/dL may lead to falsely low ionized calcium. CL Whole Blood 106 98 - 107 mmol/L [facility] Gluc Whole Bld 132 65 - 199 mg/dL [facility] Comment:Diabetes: >=200 mg/d L plus symptoms. Lactate WB 1.4 0.5 - 2.2 mmol/L [facility] Blood 02/17/2024 12:1 4 PM EDT 02/17/2024 12:14 PM EDT Hayder Graham MD POINT OF CARE TEST ORDERABLES Performing Organization Address [facility] Co de Phone Number [facility] [place] [address] * (ABNORMAL) Fibrinogen (02/17/2024 12:10 PM EDT) Fibrinogen 154(L) 200 - 393 mg/dL [facility] Comment: OR Result called by [...] ORDERABLE S Performing Organization Address [facility] Co de Phone Number [facility] [place] [address] * (ABNORMAL) Thrombin time (02/17/2024 12:10 PM EDT) Thrombin Time 18(H) 10 - 17 sec [facility] Comment: OR Result called by [...] ORDERABLE S Performing Organization Address [facility] Co de Phone Number [facility] [place] [address] * APTT (02/17/2024 12:10 PM EDT) Partial Thromboplastin Time 33 25 - 37 sec [facility] Comment: OR Result called by [...] ORDERABLE S Performing Organization Address [facility] Co de Phone Number [facility] [place] [address] * (ABNORMAL) Prothrombin Time (02/17/2024 12:10 PM EDT) Prothrombin Time 16.7(H) 9.4 - 12.5 sec [facility] Comment: OR Result called by ?? LOMARL OR Results read back by: ? alondra pagan at 2024-02-17 12:41:48 International Normalization Ratio 1.5 [facility] Comment: OR Result called by [...] Lab Tara York MD HEMATOLOGY ORDERABLE S [facility] [place] [address] * (ABNORMAL) Hemogram (02/17/2024 12:10 PM EDT) White Blood Cell 11.1(H) 4.0 - 9.5 x10(3)/mc L [facility] Red Blood Cell 3.50(L) 4.58 - 5.54 x10(6)/mc L [facility] Hemoglobin 10.4(L) 13.7 - 16.5 g/dL [facility] Hematocrit 30.2(L) 40.5 - 48.5 % [facility] Comment: This result has been called to ALONDRA PAGAN by Eddie López on 02 17 2024 at 1226, and has been read back. Mean Cell Volume 86.3 82.9 - 93.1 fL [facility] Mean Cell Hemoglobin 29.7 27.5 - 32.1 pg [facility] Mean Cell Hemoglobin Concentration 34.4 32.0 - 35.7 g/dL [facility] Platelet 118(L) 145 - 357 x10(3)/mc L [facility] RDW Standard Deviation 40.2 36.0 - 45.0 fL [facility] RDW coefficient of variation 12.8 11.4 - 13.8 % [facility] Mean Platelet Volume 9.5 7.6 - 12.9 fL [facility] NRBC% auto 0.0 % [facility] NRBC Absolute 0.000 0.000 - 0.000 x10(3)/mc L [facility] Blood 02/17/2024 12:1 0 PM EDT 02/17/2024 12:19 PM EDT Narrative Resulting Agency Comment Spec In Lab Tara York MD HEMATOLOGY ORDERABLE S [facility] [place] [address] * (ABNORMAL) BLOOD GAS 2 ARTERIAL (02/17/2024 11:43 AM EDT) pH, Arterial 7.38 7.35 - 7.45 [facility] PCO2, Arterial 40 35 - 45 mmHg [facility] PO2, Arterial 304(H) 85 - 104 mmHg [facility] Bicarbonate, Arterial 23.2 20.0 - 26.0 mmol/L [facility] Base Excess, Arterial -1.9 -3.0 - 3.0 mmol/L [facility] Hgb Blood Gas 11.1(L) 13.7 - 16.5 g/dL [facility] Oxyhemoglobin, Arterial 98.6(H) 94.0 - 97.0 % [facility] Carboxyhemoglob in, Arterial 0.3 % [facility] Comment: Nonsmokers: 0.5-1.5% COHB Smokers: Variable, but usually less than 10% Toxic: 20-30% COHB Lethal: Greater than 60% COHB Methemoglobin, Arterial 0.3 <=1.5 % [facility] Na Whole Blood 133(L) 135 - 145 mmol/L [facility] K Whole Blood 6.2(Critic al) 3.5 - 5.0 mmol/L [facility] Comment: Noted by weapons system instrument mechanic. Please note: Patients with WBC >100,000 may have falsely elevated Potassium levels. Contact the Clinical Chemistry Laboratory if there are any questions. ICa Whole Blood 0.97(L) 1.15 - 1.33 mmol/L [facility] Comment: Note: ??Total bilirubin higher than 20 mg/dL may lead to falsely low ionized calcium. CL Whole Blood 104 98 - 107 mmol/L [facility] Gluc Whole Bld 128 65 - 199 mg/dL [facility] Comment:Diabetes: >=200 mg/d L plus symptoms. Lactate WB 1.1 0.5 - 2.2 mmol/L [facility] Blood 02/17/2024 11:4 3 AM EDT 02/17/2024 11:43 AM EDT Hayder Graham MD POINT OF CARE TEST ORDERABLES [facility] [place] [address] * (ABNORMAL) BLOOD GAS 2 ARTERIAL (02/17/2024 11:08 AM EDT) pH, Arterial 7.38 7.35 - 7.45 [facility] PCO2, Arterial 38 35 - 45 mmHg [facility] PO2, Arterial 334(H) 85 - 104 mmHg [facility] Bicarbonate, Arterial 22.0 20.0 - 26.0 mmol/L [facility] Base Excess, Arterial -3.2(L) -3.0 - 3.0 mmol/L [facility] Hgb Blood Gas 10.8(L) 13.7 - 16.5 g/dL [facility] Oxyhemoglobin, Arterial 98.7(H) 94.0 - 97.0 % [facility] Carboxyhemoglob in, Arterial 0.3 % [facility] Comment: Nonsmokers: 0.5-1.5% COHB Smokers: Variable, but usually less than 10% Toxic: 20-30% COHB Lethal: Greater than 60% COHB Methemoglobin, Arterial 0.3 <=1.5 % [facility] Na Whole Blood 131(L) 135 - 145 mmol/L [facility] K Whole Blood 6.4(Critic al) 3.5 - 5.0 mmol/L [facility] Comment: Noted by weapons system instrument mechanic. Please note: Patients with WBC >100,000 may have falsely elevated Potassium levels. Contact the Clinical Chemistry Laboratory if there are any questions. ICa Whole Blood 0.98(L) 1.15 - 1.33 mmol/L [facility] Comment: Note: ??Total bilirubin higher than 20 mg/dL may lead to falsely low ionized calcium. CL Whole Blood 104 98 - 107 mmol/L [facility] Gluc Whole Bld 127 65 - 199 mg/dL [facility] Comment:Diabetes: >=200 mg/d L plus symptoms. Lactate WB 1.0 0.5 - 2.2 mmol/L [facility] Blood 02/17/2024 11:0 8 AM EDT 02/17/2024 11:08 AM EDT Hayder Graham MD POINT OF CARE TEST ORDERABLES Performing Organization Address [facility] Co de Phone Number [facility] [place] [address] * (ABNORMAL) Hemoglobin and Hematocrit, blood (02/17/2024 11:04 AM EDT) Hemoglobin 9.6(L) 13.7 - 16.5 g/dL [facility] Hematocrit 28.0(L) 40.5 - 48.5 % [facility] Comment: This result has been called to ALONDRA PAGAN by Eddie López on 02 17 2024 at 1120, and has been read back. Blood 02/17/2024 11:0 4 AM EDT 02/17/2024 11:12 AM EDT Narrative Resulting Agency Comment Spec In Lab Hayder Graham MD HEMATOLOGY ORDERABL ES Performing Organization Address [facility]/ZIP Co de Phone Number [facility] [place] [address] * (ABNORMAL) Platelet count (02/17/2024 11:04 AM EDT) Platelet 106(L) 145 - 357 x10(3)/mc L [facility] Immature Plt % 1.6 0.0 - 7.4 % [facility] Comment: Limitation of the Immature Platelet Fraction (IPF)-May be less reliable when the platelet count is less than 23r859/uL due to statistical imprecision. The IPF value [...] in a decreased state of production. References: [employer] The Clinical Value of the Immature Platelet Fraction (IPF) in Cell Recovery Document Number [id number] 03/2011 [employer] The Role of the Immature Platelet Fraction (IPF) in the Differential Diagnosis of Thrombocytopenia, Document [id number] V002/15/14 Blood 02/17/2024 11:0 4 AM EDT 02/17/2024 11:12 AM EDT Narrative Resulting Agency Comment Spec In Lab Hayder Graham MD HEMATOLOGY ORDERABL ES Performing Organization Address City/State/[facility] Co de Phone Number [facility] [place] [address] * (ABNORMAL) Fibrinogen (02/17/2024 11:04 AM EDT) Fibrinogen 149(L) 200 - 393 mg/dL [facility] Comment: OR Result called by ?? SALVLT OR Results read back by: ? Alondra Pagan at 2024-02-17 11:30:47 A fibrinogen level >100 mg/dL is adequate for hemostasis in most patients without underlying bleeding disorders. Blood 02/17/2024 11:0 4 AM EDT 02/17/2024 11:12 AM EDT Narrative Resulting Agency Comment Spec In Lab Hayder Graham MD HEMATOLOGY ORDERABL ES [facility] [place] [address] * (ABNORMAL) BLOOD GAS 2 ARTERIAL (02/17/2024 10:41 AM EDT) pH, Arterial 7.37 7.35 - 7.45 [facility] PCO2, Arterial 44 35 - 45 mmHg [facility] PO2, Arterial 335(H) 85 - 104 mmHg [facility] Bicarbonate, Arterial 24.9 20.0 - 26.0 mmol/L [facility] Base Excess, Arterial -0.4 -3.0 - 3.0 mmol/L [facility] Hgb Blood Gas 11.5(L) 13.7 - 16.5 g/dL [facility] Oxyhemoglobin, Arterial 98.9(H) 94.0 - 97.0 % [facility] Carboxyhemoglob in, Arterial 0.1 % [facility] Comment: Nonsmokers: 0.5-1.5% COHB Smokers: Variable, but usually less than 10% Toxic: 20-30% COHB Lethal: Greater than 60% COHB Methemoglobin, Arterial 0.3 <=1.5 % [facility] Na Whole Blood 132(L) 135 - 145 mmol/L [facility] K Whole Blood 5.9(H) 3.5 - 5.0 mmol/L [facility] Comment: Please note: Patients with WBC >100,000 may have falsely elevated Potassium levels. Contact the Clinical Chemistry Laboratory if there are any questions. ICa Whole Blood 1.02(L) 1.15 - 1.33 mmol/L [facility] Comment: Note: ??Total bilirubin higher than 20 mg/dL may lead to falsely low ionized calcium. CL Whole Blood 104 98 - 107 mmol/L [facility] Gluc Whole Bld 129 65 - 199 mg/dL [facility] Comment:Diabetes: >=200 mg/d L plus symptoms. Lactate WB 1.1 0.5 - 2.2 mmol/L [facility] Blood 02/17/2024 10:4 1 AM EDT 02/17/2024 10:41 AM EDT Hayder Graham MD POINT OF CARE TEST ORDERABLES [facility] [place] [address] * (ABNORMAL) BLOOD GAS 2 ARTERIAL (02/17/2024 10:06 AM EDT) pH, Arterial 7.38 7.35 - 7.45 [facility] PCO2, Arterial 42 35 - 45 mmHg [facility] PO2, Arterial 329(H) 85 - 104 mmHg [facility] Bicarbonate, Arterial 24.7 20.0 - 26.0 mmol/L [facility] Base Excess, Arterial -0.3 -3.0 - 3.0 mmol/L [facility] Hgb Blood Gas 11.0(L) 13.7 - 16.5 g/dL [facility] Oxyhemoglobin, Arterial 99.0(H) 94.0 - 97.0 % [facility] Carboxyhemoglob in, Arterial 0.3 % [facility] Comment: Nonsmokers: 0.5-1.5% COHB Smokers: Variable, but usually less than 10% Toxic: 20-30% COHB Lethal: Greater than 60% COHB Methemoglobin, Arterial 0.3 <=1.5 % [facility] Na Whole Blood 132(L) 135 - 145 mmol/L [facility] K Whole Blood 6.0(H) 3.5 - 5.0 mmol/L [facility] Comment: Please note: Patients with WBC >100,000 may have falsely elevated Potassium levels. Contact the Clinical Chemistry Laboratory if there are any questions. ICa Whole Blood 0.97(L) 1.15 - 1.33 mmol/L [facility] Comment: Note: ??Total bilirubin higher than 20 mg/dL may lead to falsely low ionized calcium. CL Whole Blood 102 98 - 107 mmol/L [facility] Gluc Whole Bld 123 65 - 199 mg/dL [facility] Comment:Diabetes: >=200 mg/d L plus symptoms. Lactate WB 1.1 0.5 - 2.2 mmol/L [facility] Blood 02/17/2024 10:0 6 AM EDT 02/17/2024 10:06 AM EDT Hayder Graham MD POINT OF CARE TEST ORDERABLES [facility] [place] [id number] * Surgical Pathology Report (02/17/2024 10:01 AM EDT) Final Diagnosis [id number] ? Location: [facility]; [facility]; The signing pathologist has (i) examined the relevant preparation(s) for the specimen(s) and (ii) rendered or confirmed the diagnosis(es). . ?Surgical Pathology DIAGNOSIS Aortic valve leaflets, excision: Valve leaflets with myxoid degeneration, nodular fibrosis and dystrophic calcifications. Electronically signed by: ?Livier Montoya MD Verified: ??02/24/2024 13:49 ??Pathologist Performed at: ??-[facility] Dept. of Pathology, [place] [address] Curriculum And Assessment Director: Job Brewer MD, FCAP, ??IA Certificate: [id number] SPECIMEN(S) SUBMITTED A - Aortic Valve Leaflets, [...] Sections Processing Blocks submitted for decalcification: A1. [place] Machine Operator sections in 1 cassette labeled A1. ??ajw 02/24/2024 1:49 PM EDT [facility] AORTIC STRUCTURE / Unknown 02/17/2024 10:01 AM EDT 02/17/2024 10:01 AM EDT Hayder Graham MD PATHOLOGY/CYTOLOGY ORDERABLES [facility] [place] [address] * Specimen to Pathology (02/17/2024 10:01 AM EDT) AP Specimen 02/17/2024 10:0 1 AM EDT 02/17/2024 10:01 AM EDT Narrative [facility] - 02/17/2024 10:01 AM EDT Specimen requisition ordered. ??Separate Pathology report to follow Hayder Graham MD PATHOLOGY/CYTOLOGY ORDERABLES [facility] [place] [address] * (ABNORMAL) BLOOD GAS 2 ARTERIAL (02/17/2024 9:35 AM EDT) pH, Arterial 7.33(L) 7.35 - 7.45 [facility] PCO2, Arterial 35 35 - 45 mmHg [facility] PO2, Arterial 318(H) 85 - 104 mmHg [facility] Bicarbonate, Arterial 17.9(L) 20.0 - 26.0 mmol/L [facility] Base Excess, Arterial -8.0(L) -3.0 - 3.0 mmol/L [facility] Hgb Blood Gas 11.0(L) 13.7 - 16.5 g/dL [facility] Oxyhemoglobin, Arterial 98.8(H) 94.0 - 97.0 % [facility] Carboxyhemoglob in, Arterial 0.3 % [facility] Comment: Nonsmokers: 0.5-1.5% COHB Smokers: Variable, but usually less than 10% Toxic: 20-30% COHB Lethal: Greater than 60% COHB Methemoglobin, Arterial 0.3 <=1.5 % [facility] Na Whole Blood 131(L) 135 - 145 mmol/L [facility] K Whole Blood 5.8(H) 3.5 - 5.0 mmol/L [facility] Comment: Please note: Patients with WBC >100,000 may have falsely elevated Potassium levels. Contact the Clinical Chemistry Laboratory if there are any questions. ICa Whole Blood 0.98(L) 1.15 - 1.33 mmol/L [facility] Comment: Note: ??Total bilirubin higher than 20 mg/dL may lead to falsely low ionized calcium. CL Whole Blood 101 98 - 107 mmol/L [facility] Gluc Whole Bld 122 65 - 199 mg/dL [facility] Comment:Diabetes: >=200 mg/d L plus symptoms. Lactate WB 0.8 0.5 - 2.2 mmol/L [facility] Blood 02/17/2024 9:35 AM EDT 02/17/2024 9:35 AM EDT Hayder Graham MD POINT OF CARE TEST ORDERABLES [facility] [place] [address] * (ABNORMAL) BLOOD GAS 2 VENOUS (02/17/2024 9:34 AM EDT) pH, Venous 7.22(Criti marquez) 7.32 - 7.42 [facility] Comment:Noted by weapons system instrument mechanic. PCO2, Venous 43 41 - 51 mmHg [facility] Comment:Noted by weapons system instrument mechanic. PO2, Venous 57(H) 25 - 40 mmHg [facility] Comment:Noted by weapons system instrument mechanic. Bicarbonate, Venous 17.1 mmol/L [facility] Comment:Noted by weapons system instrument mechanic. Base Excess, Venous -10.6 mmol/L [facility] Comment:Noted by weapons system instrument mechanic. Hgb Blood Gas 11.2(L) 13.7 - 16.5 g/dL [facility] Comment:Noted by weapons system instrument mechanic. Oxyhemoglobin, Venous 86.5 % [facility] Comment:Noted by weapons system instrument mechanic. Carboxyhemoglob in, Venous 0.3 % [facility] Comment: Noted by weapons system instrument mechanic. Nonsmokers: 0.5-1.5% COHB Smokers: Variable, but usually less than 10% Toxic: 20-30% COHB Lethal: Greater than 60% COHB Methemoglobin, Venous 0.0 <=1.5 % [facility] Comment:Noted by weapons system instrument mechanic. Na Whole Blood 156(H) 135 - 145 mmol/L [facility] Comment:Noted by weapons system instrument mechanic. K Whole Blood 5.5(H) 3.5 - 5.0 mmol/L [facility] Comment: Noted by weapons system instrument mechanic. Please note: Patients with WBC >100,000 may have falsely elevated Potassium levels. Contact the Clinical Chemistry Laboratory if there are any questions. ICa Whole Blood 1.03(L) 1.15 - 1.33 mmol/L [facility] Comment: Noted by weapons system instrument mechanic. Note: ??Total bilirubin higher than 20 mg/dL may lead to falsely low ionized calcium. CL Whole Blood 100 98 - 107 mmol/L [facility] Comment:Noted by weapons system instrument mechanic. Gluc Whole Bld 132 65 - 199 mg/dL [facility] Comment: Noted by weapons system instrument mechanic. Diabetes: >=200 mg/dL plus symptoms Lactate WB 1.0 0.5 - 2.2 mmol/L [facility] Comment:Noted by weapons system instrument mechanic. Blood Gas Source Venous [facility] Blood 02/17/2024 9:34 AM EDT 02/17/2024 9:34 AM EDT Hayder Graham MD POINT OF CARE TEST ORDERABLES [facility] [place] [address] * (ABNORMAL) BLOOD GAS 2 ARTERIAL (02/17/2024 8:07 AM EDT) pH, Arterial 7.43 7.35 - 7.45 [facility] PCO2, Arterial 34(L) 35 - 45 mmHg [facility] PO2, Arterial 581(H) 85 - 104 mmHg [facility] Bicarbonate, Arterial 21.7 20.0 - 26.0 mmol/L [facility] Base Excess, Arterial -2.6 -3.0 - 3.0 mmol/L [facility] Hgb Blood Gas 14.5 13.7 - 16.5 g/dL [facility] Oxyhemoglobin, Arterial 99.0(H) 94.0 - 97.0 % [facility] Carboxyhemoglob in, Arterial 0.4 % [facility] Comment: Nonsmokers: 0.5-1.5% COHB Smokers: Variable, but usually less than 10% Toxic: 20-30% COHB Lethal: Greater than 60% COHB Methemoglobin, Arterial 0.3 <=1.5 % [facility] Na Whole Blood 139 135 - 145 mmol/L [facility] K Whole Blood 4.0 3.5 - 5.0 mmol/L [facility] Comment: Please note: Patients with WBC >100,000 may have falsely elevated Potassium levels. Contact the Clinical Chemistry Laboratory if there are any questions. ICa Whole Blood 1.09(L) 1.15 - 1.33 mmol/L [facility] Comment: Note: ??Total bilirubin higher than 20 mg/dL may lead to falsely low ionized calcium. CL Whole Blood 106 98 - 107 mmol/L [facility] Gluc Whole Bld 100 65 - 199 mg/dL [facility] Comment:Diabetes: >=200 mg/d L plus symptoms. Lactate WB 1.3 0.5 - 2.2 mmol/L [facility] Blood 02/17/2024 8:07 AM EDT 02/17/2024 8:07 AM EDT Hayder Graham MD POINT OF CARE TEST ORDERABLES Performing Organization Address [facility] Co de Phone Number [facility] [place] [address] * POCT Glucose (02/17/2024 6:38 AM EDT) Glucose, POC 98 65 - 199 mg/dL [facility] Comment: Supplemental ranges: <140 mg/dL before meals <180 mg/dL all other times of the day Blood 02/17/2024 6:38 AM EDT 02/17/2024 6:38 AM EDT Hayder Graham MD POINT OF CARE TEST ORDERABLES Performing Organization Address [facility] Co de Phone Number [facility] [place] [address] * Transesophageal Echo/OR (02/17/2024 6:33 AM EDT) [...] [facility] [...] Routine documented in this encounter Care Teams White Metal Caster Relationship Specialty Start Date End Date Aparna Jordan APRN PCP - General Family Medicine 10/21/23 documented as of this encounter
--- OUTSIDE RECORDS SUMMARY | 2024-05-20 09:08 | XMS_ITS | Encounter Summary ---
[facility] Organization [facility] [place] [address] Care Team Providers Care Immigration Paralegal Name Role Phone Vanessa Christian Lane DOTSON Primary Care Provider [phone] Encounter Details Date Type Department Care Team (Late st Contact Info) Description 01/09/2024 2:30 PM EDT Clinical Support Same Day at [facility] [place] [phone] Social History Tobacco Use Types Packs/Day Years Used Date Smoking Tobacco: Former Cigarettes Smokeless Tobacco: Never Comments:Quit 15 + years ago Alcohol Use Standard Drinks/Week Comments Yes 0 (1 standard drink = 0.6 oz pur e alcohol) rare [facility] Inpatient Questions Answer Date Recorded Prevent Contact [...] you tube link for a video about [facility] cardiac surgery. Instructed to bring the [...] type and screen performed while in the [facility]. Sent to Radiology for chest x-ray. Special medication instructions: None Procedure date: not booked. Darian documented in this encounter Plan of Treatment Upcoming Encounters Date Type Department Care Team (Late st Contact Info) Description 05/27/2024 11:00 AM EDT Office Visit Cardiology at [address] [place] [phone] Neftali Ernandez MD [facility] [place] [address] documented as of this encounter Visit Diagnoses Not on filedocumented in this encounter Care Teams Immigration Paralegal Relationship Specialty Start Date End Date Vanessa Christian APRN PCP - General Family Medicine 10/21/23 documented as of this encounter
--- OUTSIDE RECORDS SUMMARY | 2024-05-20 09:08 | XMS_ITS | Encounter Summary ---
Author Organization [facility] [place] [address] Care Team Providers Care Collator Hand Name Role Phone Vanessa Christian APRN Primary Care Provider [phone] Encounter Details Date Type Department Care Team (Late st Contact Info) Description 12/26/2023 Notes Only Cardiology at [address] [phone] Neftali Ernandez MD [facility] [place] [address] Social History Tobacco Use Types Packs/Day Years [...] 1:37 PM EDT Echocardiogram images reviewed from [facility]. Indeed, the aortic valve appears severely stenotic. Cannotrule out bicuspid valve documented in this encounter Plan of Treatment Upcoming Encounters Date Type Department Care Team (Late st Contact Info) Description 05/27/2024 11:00 AM EDT Office Visit Cardiology at [address] [phone] Neftali Ernandez MD [facility] [place] [address] documented as of this encounter Visit Diagnoses Not on filedocumented in this encounter Care Teams Collator Hand Relationship Specialty Start Date End Date Vanessa Christian APRN PCP - General Family Medicine 10/21/23 documented as of this encounter
--- OUTSIDE RECORDS SUMMARY | 2024-05-20 09:08 | XMS_ITS | Encounter Summary ---
Author Organization Formerly [facility] [place] [address] Care Team Providers Care Patient Consumer Marketer Name Role Phone Vanessa Christian MAURI Primary Care Provider [phone] Reason for Visit * Auth/Cert (Routine) Specialty [...] MD [facility] [place] [address] [facility] Referral ID Status Reason Start Date Expiration Date Visits Re quested Visits Authorized [id number] 1 1 Encounter Details Date Type Department Care Team (Late st Contact Info) Description 02/03/2024 10:00 AM EDT - 02/03/2024 11:00 AM EDT [place] [address] Saira Lua MD [facility] [place] [address] CARDIAC CATHETERIZATION Social History Tobacco Use Types [...] lbs Follow-up Visits Follow up with your soot blower in 2-4 weeks Access Site 'Black and Blue' and tenderness is expected during the first week Call if you noted a mass (lump) greater than the size of a ellis Call Office with any Questions and if you have any of the following Clarence Lane M.D Interventional Civil Structural Designer Rn Clinical Quality #: [phone] * Attachments The following attachments cannot be sent through Care Everywhere. * CAD (Coronary Artery Disease): General Info ([place]) * Coronary Angiogram: Post-op ([place]) documented in this encounter Medications at Time [...] Lane MD - 02/03/2024 11:48 AM EDT [facility] Interventional Cardiology Adult Pre-Procedure H&P Update: Cardiac Catheterization Karlos Anthony [id number] 1960 Chief Complaint: Aortic stenosis HPI: Mr. [...] is inthe chart Clarence Lane MD Interventional Civil Structural Designer 02/03/24 11:48 AM documented in this encounter Miscellaneous Notes * Brief Op Note - Clarence Lane MD - 02/03/2024 12:51 PM EDT Preliminary Cardiac Catheterization Procedure Note: Patient Name: Karlos Anthony : [id number] MR#: [id number] Case Date: 02/03/2024 Rn Clinical Quality: Surgeon(s) and Role: * Saira Lua MD [...] AM EDT Office Visit Cardiology at [address] [phone] Neftali Ernandez MD [facility] [place] [address] Scheduled Orders Name Type Priority Associated Diagnoses [...] Other Narrative 02/12/2024 3:47 PM EDT ?[facility] ? Cardiac Catheterization/Intervention Report ? Patient Name: Patenaude, Karlos ? Procedure Date: 02/03/2024 ? A #: [id number] ? Primary Physician: Saira Lua ? Case #: [id number] ? File Name: [id number] ? Catheterization Order Number: [id number] ? [facility] ? Final Report [place], [place] ? Patient Name: ? Kralos Patenaude ? ID#: ?[id number] ? : ?1960 ? Procedure Date: ? February 03, 2024 ? Case #: ? [id number] ? Room: ? 5 ? Case Physician: [...] Note Saira Lua MD - 02/12/2024 [facility] Cardiac Catheterization/Intervention Report Patient Name: Karlos Anthony Procedure Date: 02/03/2024 A #: [id number] Primary Physician: Saira Lua Case #: [id number] File Name: [id number] Catheterization Order Number: [id number] [facility] FinalReport [place], [place] Patient Name: Karlos Anthony ID#:[id number] :1960 Procedure Date: February 03, 2024 Case [...] was designated as ASA Class III. The [facility] clinical frailty scale is 3: Managing [...] (Bezet) 372 ms MUSE SYSTEM Calculated P [place] 59 degrees MUSE SYSTEM Calculated R [place] 34 degrees MUSE SYSTEM Calculated T [place] 63 degrees MUSE SYSTEM INTERPRETATION Sinus bradycardia [...] MD) documented in this encounter Care Teams Patient Consumer Marketer Relationship Specialty Start Date End Date Vanessa Christian, MAURI PCP - General Family Medicine 10/21/23 documented as of this encounter
--- OUTSIDE RECORDS SUMMARY | 2024-05-20 09:08 | XMS_ITS | Continuity of Care Document ---
Author Organization [email or web address] Address [address] [place] [address] Care Team Providers Care Economic Forecaster Name Role Phone VANESSA JORDAN Primary Care [...] Patient InstructionsNo instructions recorded. Reason for Referral Lay Out Former Referral for Roland ateral hearing loss Referring [...] M16.12; Problem Code Type: ICD-10; Not Available [facility] 4 05:35:57 Inguinal hernia Active 2022 Problem Code: K40.90; Problem Code Type: ICD-10; Not Available [facility] 4 05:35:57 Heart murmur Active 2022 Problem Code: R01.1; Problem Code Type: ICD-10; Not Available [facility] 4 05:35:57 Dyspnea Active 2022 Problem Code: R06.09; Problem Code Type: ICD-10; Not Available [facility] 4 05:35:57 Chest pain Active 2022 Problem Code: R07.89; Problem Code Type: ICD-10; Not Available [facility] 4 05:35:57 Melanocytic nevus Active 2022 Problem Code: D22.9; Problem Code Type: ICD-10; Not Available [facility] 4 05:35:57 Aortic stenosis, non-rheumatic Active 2022 Problem Code: I35.0; Problem Code Type: ICD-10; Not Available [facility] 4 05:35:58 Aortic stenosis, non-rheumatic Completed 202208/14/2023 Problem Code: I35.0; Problem Code Type: ICD-10; Not Available [facility] 4 05:35:58 Indigestion Active 2023 GLORIA CAMP LPN null, [facility] 4 08:48:57 Coronary artery bypass grafts x 3 Active 2023 Kelly Duran RN null, [facility] 4 10:30:01 At increased risk of atrial fibrillation Active 2023 TATYANA LEDEZMA MD [address], [place], [address] , [facility]. 4 13:52:01 Anemia Active 2023 TATYANA LEDEZMA MD [address], [place], [address] , [facility] 13:54:39 Problem Notes None recorded. Procedures Surgical History Date Name Laterality Status Provider Name and Address Organization Details Recorded Time coronary artery bypass graft completed Hudson Reeder MA [facility], [facility] 03/04/2024 14:54:09 Imaging Results None recorded. [...] es. Take 1 hr prior. Started by [facility]. Not Available Not Available Not Available doxycycli ne hyclate 100 mg capsule TAKE 1 CAPSULE BY MOUTH TWICE DAILY 09/19 completed Not Available Not Available Not Available atorvasta tin 20 mg tablet active Not Available Not Available Not Available atorvasta [...] BY MOUTH DAILY 02/24 completed stopped by [facility] Not Available Not Available [...] hours by oral route as needed. active [facility] Not Available Not Available No t Available Aspirin Childrens 81 mg chewable tablet Take 1 tablet by mouth once a day active Not Available Not Available No t Available lisinopri l 5 mg tablet TAKE 1 TABLET BY MOUTH EVERY DAY 02/24 completed stopped by [facility] Not Available Not Available Not Available mupirocin 2 % topical ointment APPLY SMALL AMOUNT TOPICALL Y IN EACH NOSTRIL TWICE DAILY. BEGIN 5 DAYS BEFORE THE DAY OF SURGERY 03/06 completed Not Available Not Available Not Available timolol maleate 0.5 % eye drops INSTILL 1 DROP IN BOTH EYES TWICE DAILY active Not Available Not Available No t Available SF 5000 Plus 1.1 % dental [...] day by oral route. active started by [facility] Not Available Not Available [...] Updated DateTime 4 167.64 cm 22.6 kg/m2 76643.6 5 g 63 /min 99 % 99 % 102 mm[Hg] 54 mm[Hg] Hudson Reeder MA [facility] 10:27:28 Social History Question Answer Notes LastModified by Organizat ion Details LastModified Time Tobacco Smoking Status Former Smoker Hudson Reeder MA null, [facility] 03/06/2024 10:24:50 Do You Have An Advance Directive? Yes Registered 08/15/23 Updated 01/12/24 Information not available 01/15/2024 When Did You Quit Smoking? 11-15years sincelastc igarette [email or web address] Information not available 03/06/2024 Do You Have A Medical Power Of Finance Manager? Yes Received 08/30/23, Scanned. Copies Sent To [facility] And Patient 09/02/23. Information not available 09/02/2023 What Was The Date Of Your Most Recent Tobacco Screening? 03/06/2024 [email or web address] Information not available 03/06/2024 What Is Your Current Pack Years? 30ormorepa ckyears [email or web address] Information not available 03/06/2024 How Much Tobacco Do You Smoke? 1 PPD [email or web address] Information not available 03/06/2024 How Many Years Have You Smoked Tobacco? 40 [email or web address] Information not available 03/06/2024 Do You Or Have You Ever Used Any Other Forms Of Tobacco Or Nicotine? No [email or web address] Information not available 03/06/2024 Sex: Male Functional [...] Recorded Time Tdap 08/26/2013 completed Not Available [facility] 05:30:17 Td(adult) unspecified formulation 11/21/2022 completed Not Available [facility] 10/18/2023 05:30:17 COVID-19, mRNA, LNP-S, PF, 100 mcg/0.5mL dose or 50 mcg/0.25mL dose 01/24/2021 completed Not Available [facility] 10/18/19 05:30:18 COVID-19, mRNA, LNP-S, PF, 100 mcg/0.5mL dose or 50 mcg/0.25mL dose 02/21/2021 completed Not Available [facility] 10/18/19 05:30:18 COVID-19, mRNA, LNP-S, PF, 100 mcg/0.5mL dose or 50 mcg/0.25mL dose 09/11/2021 completed Not Available [facility] 10/18/19 05:30:18 influenza, unspecified formulation 07/26/2021 completed Not Available [facility] 10/18/2023 05:30:18 influenza, unspecified formulation 07/26/2022 completed Not Available [facility] 10/18/2023 05:30:18 influenza, unspecified formulation 07/28/2020 completed Not Available [facility] 10/18/2023 05:30:18 influenza, unspecified formulation 08/05/2019 completed Not Available [facility] 10/18/2023 05:30:18 influenza, unspecified formulation 08/12/2018 completed Not Available [facility] 10/18/2023 05:30:18 Past Encounters Encounter ID Performer Location Encounter Start Date Encounter Closed Date Diagnosis/Indication Diagnosis SNOMED-CT Code [id number] TATYANA LEDEZMA MD [address] [address] 03/06/2024 10:15:07 03/06/2024 11:14:28 Postoperative visit 271497530 Aortic rosa m nosis, non-rheumatic 520476456 Stented co ronary artery 231899891 At [facility] risk of atrial fibrillation 186795860 Anemia 188553427 Health Concerns Section Related Observation LastModified by Organization Detai ls LastModified Time None Recorded Concern Status LastModified by Organization Details LastModified Time None Recorded Payers Encounter Date Sequence Insurance Name Policy Number Policy Alicia Covered Member ID Alicia Member ID Guarantor Name 03/06/2024 1 R [id number] Karlos Jessica Patenaude [id number] Karlos Jessica Patenamary Notes Date Note Type Note Provider Name and Address Organization Details Recorded Time 03/06/2024 text/html HPI Notes: Ana Paula marlow is here today for a postop evaluation MD [address], [place], [address], [facility]. 03/08/2024 13:57:34
--- OUTSIDE RECORDS SUMMARY | 2024-05-20 09:08 | XMS_ITS | Encounter Summary ---
Author Organization [facility] Address [facility] [place] [address] Care Team Providers Care Pipe Fitter Apprentice Name Role Phone Vanessa Christian MAURI Primary Care Provider [phone] Reason for Visit * Consultation (Routine) - Closed Specialty Diagnoses / Procedures Referred By Contac t Referred To Contact Cardiac Surgery Diagnoses Nonrheumatic aortic valve stenosis significant - TAVR ( defers to Card Surg d/t age) Neftali Ernandez MD [facility] [place] [address] Zak Farmer MD [facility] [place] [address] Referral ID Status Reason Start Date Expiration Date V isits Requested Visits Authorized [id number] Closed Consult, Test & Treat 10/21/2023 10/20/2024 1 1 Encounter Details Date Type Department Care Team (Late st Contact Info) Description 01/09/2024 1:40 PM EDT Office [place] [address] Zak Farmer MD [facility] [place] [address] Nonrheumatic aortic valve stenosis Social [...] in this encounter Progress Notes * Zak Famrer MD - 01/09/2024 1:40 PM EDT To: [...] office. Best personal regards, Zak Farmer MD [phone] In aggregate 55 minutes were spent evaluating [...] AM EDT Office Visit Cardiology at [address] [place] [phone] Neftali Ernandez MD [facility] [place] [address] documented as of this encounter Results * [...] who have questions please contact the health hiv/aids care nurse that requested your imaging first. [...] patients who have questions please contactthe health hiv/aids care nurse that requested your imaging first. Zak Farmer MD IMG DX ORDERABLES * Basic Metabolic Panel (non-fasting) (01/09/2024 2:58 PM EDT) Glucose 102 65 - 199 mg/dL [facility] Comment:Diabetes: >=200 mg/d L plus symptoms Blood Urea Nitrogen 15 10 - 20 mg/dL [facility] Creatinine 0.94 0.80 - 1.50 mg/dL [facility] Sodium 137 135 - 145 mmol/L [facility] Potassium 4.5 3.5 - 5.0 mmol/L [facility] Comment: Please note: ??Patients with WBC >100,000 may have falsely elevated Potassium levels. ??For accurate Potassium quantification in these patients send serum separator tube (gold top) for subsequent determinations. ??Contact the Clinical Chemistry Laboratory if there are any questions. Chloride 103 98 - 107 mmol/L [facility] Carbon Dioxide 27 22 - 31 mmol/L [facility] Anion Gap 7 5 - 15 mmol/L [facility] Calcium 9.5 8.5 - 10.5 mg/dL [facility] Est Glomerular Filtration Rate 91 >=60 mL/min/1. 73 m?? [facility] Comment: This patient's [...] Lab Zak Farmer MD CHEMISTRY ORDERABLE S [facility] [place] [address] * Hepatic Function Panel (01/09/2024 2:58 PM EDT) Pathologist [facility] Protein, Total 6.7 6.1 - 8.0 g/dL [facility] Albumin 4.5 3.2 - 5.2 g/dL [facility] Aspartate Aminotransferase 21 0 - 39 unit/L [facility] Alanine Aminotransferase 21 0 - 55 unit/L [facility] Alkaline Phosphatase 81 40 - 130 unit/L [facility] Bilirubin, Total 0.7 0.2 - 1.3 mg/dL [facility] Bilirubin, Direct 0.2 0.0 - 0.3 mg/dL [facility] Blood 01/09/2024 2:58 PM EDT 01/09/2024 3:03 PM EDT Narrative Resulting Agency Comment Spec In Lab Zak Farmer MD CHEMISTRY ORDERABLE S Performing Organization Address [facility] Co de Phone Number [facility] [place] [address] * Prothrombin Time (01/09/2024 2:58 PM EDT) [facility] Prothrombin Time 10.6 9.4 - 12.5 sec [facility] International Normalization Ratio 0.9 [facility] Comment: An INR [...] MD HEMATOLOGY ORDERABL ES Performing Organization Address City/[facility]/ZIP Co de Phone Number [facility] [place] [address] * Type and Screen Future Surgery, [facility] ONLY) (01/09/2024 2:58 PM EDT) ABORH Type O NEGATIVE [facility] Patient BB History Not Found [facility] Expires at [id number] on: 02-20-2024 [facility] Ab Screen Interp Negative [facility] Blood 01/09/2024 2:58 PM EDT 01/09/2024 2:58 PM EDT Narrative Resulting Agency Comment Spec In Lab Zak Farmer MD BLOOD BANK LAB [facility] Organization Address City/State/ZIP Co de Phone Number [facility] [place] [address] documented in this encounter Visit Diagnoses Diagnosis Nonrheumatic aortic valve stenosis Aortic valve disorders Nonrheumatic aortic valve stenosis Aortic valve disorders documented in this encounter Care Teams Pipe Fitter Apprentice Relationship Specialty Start Date End Date Vanessa Christian APRN PCP - General Family Medicine 10/21/23 documented as of this encounter
--- OUTSIDE RECORDS SUMMARY | 2024-05-20 09:08 | XMS_ITS | Data Portability ---
Author Organization [place] - [facility] Address [address] [place] [address] Care Team Providers Care Antisqueak Filler Name Role Phone VANESSA JORDAN Primary Care Provider [phone] Assessment No assessment recorded. Plan of Treatment Reminders Order Date Submit Date Provider Last Modified By Organization Details Last Modified Time Details Appointments None recorded . Lab magnesiu m, serum or plasma 024 12/18/19 24 [id number] [facility] (Registration ), [address] [place] [address] [place], [address], 4 14:25:25 BMP, serum or plasma 024 12/18/19 24 [email or web address] [facility] (Registration ), [address] [place] [address] [place], [address], 4 14:25:24 Referral None recorded . Procedures None recorded . Surgeries None recorded . Imaging None recorded . Medication Orders None recorded . Patient TargetsNo targets recorded. Patient Instructions Encounter Date Encounter Id Patient Instructions Last Modified By Organization Details Last Modified Time 09/19/2023 [id number] SCHEDULE FOLLOW UP IN 3 MONTHS IF YOU DONT HEAR FROM THE CARDIOLOGY DEPT THIS WEEK CALL [facility] AND LET THEM KNOW IF YOUR BREATHING GETS WORSE- GO TO THE ER, DONT OVER DO THINGS PHYSICALLY EXPECT A CALL FROM SARA ZAFAR RE: UPDATING YOUR POWER OF VP CARDIOVASCULAR (NEED 2 WITNESSED SIGNATURES) Not available 09/19/2023 09:25:07 12/18/2023 [id number] Karlos: expect a call from the STructural heart team at [facility] drink at least 6 glasses of water a day. checking kidney function and magnesium labs today will mail home. follow up in 3 months for BPH, Aortic stenosis. 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 for Referral Correctional Treatment Specialist Referral for Roland ateral hearing loss Referring Physician: Vanessa Jordan, Family Medicine, Encounter Date: 02/26/2024 Results Created Date Observation Date Name Description Value Unit Range Abnormal Flag LastModifiedBy Organization Detail LastModifiedTime 12/18/1912/18/2023 LASIC METAB OLIC PANEL calcium 9.3 mg/dL 8.5-10 .1 normal Not Available [address] [place], [address] 12/18/2023 17:09:55 12/18/1912/18/2023 LASIC METAB OLIC PANEL glucose 90 mg/dL 74-106 normal Not Available [address] [place], [address] 12/18/2023 17:09:55 12/18/19 24 12/18/2023 LASIC METAB OLIC PANEL BUN 14 mg/dL 7-18 normal Not Available [address] [place], [address] 12/18/2023 17:09:55 12/18/19 24 12/18/2023 LASIC METAB OLIC PANEL creatinine 1.0 mg/dL 0.70-1 .30 normal Not Available [address] [place], [address] 12/18/2023 17:09:55 12/18/19 24 12/18/2023 LASIC METAB OLIC PANEL estimated GFR 84.05 mL/min /1.73m 2 Not Available [address] [place], [address] 12/18/2023 17:09:55 12/18/19 24 12/18/2023 LASIC METAB OLIC PANEL sodium 139 mmol/ L 136-14 5 normal Not Available [address] [place], [address] 12/18/2023 17:09:55 12/18/19 24 12/18/2023 LASIC METAB OLIC PANEL potassium 4.9 mmol/ L 3.5-5. 1 normal Not Available [address] [place], [address] 12/18/2023 17:09:55 12/18/19 24 12/18/2023 LASIC METAB OLIC PANEL chloride 104 mmol/ L 98-107 normal Not Available [address] [place], [address] 12/18/2023 17:09:55 12/18/19 24 12/18/2023 LASIC METAB OLIC PANEL CO2 30.9 mmol/ L 21.0-3 2.0 normal Not Available [address] [place], [address] 12/18/2023 17:09:55 12/18/19 24 12/18/2023 LASIC METAB OLIC PANEL anion gap 4.1 mmol/ L 3-11 normal Not Available [address] [place], [address] 12/18/2023 17:09:55 12/18/19 24 12/18/2023 MAGNE SIUM magnesium 1.8 mg/dL 1.8-2. 4 normal Not Available [address] [place], [address] 12/18/2023 17:09:56 09/11/2012/05/2022 trans -thor acic echoc ardio gram (TTE) (PROC ) No observ ation record ed. [email or web address] [facility] Xray [address] , [place], [address], 09/13/2023 09:29:52 09/11/20 23 06/01/2022 XR, hip, unila teral No observ ation record ed. [email or web address] Not Available 09/13/2023 09:29:19 09/11/20 23 12/06/2019 US, echoc ardio gram No observ ation record ed. [email or web address] [facility] Cardiology [address] [place] [address] [place], [address], 09/13/2023 09:28:49 Result Notes None recorded. Problems Name Status Onset Date Resolution Date Notes Provider Name and Address Organization Details Recorded Time Gastroesophageal reflux disease without esophagitis Active 2022 Problem Code: K21.9; Problem Code Type: ICD-10; Not Available [facility] 4 05:35:57 Glaucoma Active 2022 Problem Code: H40.9; Problem Code Type: ICD-10; Not Available [facility] 4 05:35:57 Hyperlipidemia Active 2022 Problem Code: E78.5; Problem Code Type: ICD-10; Not Available [facility] 4 05:35:57 Essential hypertension Active 2022 Problem Code: I10; Problem Code Type: ICD-10; Not Available [facility] 4 05:35:57 Pain of left hip joint Active 2022 Problem Code: M25.552; Problem Code Type: ICD-10; Not Available [facility] 4 05:35:57 Idiopathic osteoarthritis Active 2022 Problem Code: M16.12; Problem Code Type: ICD-10; Not Available [facility] 4 05:35:57 Inguinal hernia Active 2022 Problem Code: K40.90; Problem Code Type: ICD-10; Not Available [facility] 4 05:35:57 Heart murmur Active 2022 Problem Code: R01.1; Problem Code Type: ICD-10; Not Available [facility] 4 05:35:57 Dyspnea Active 2022 Problem Code: R06.09; Problem Code Type: ICD-10; Not Available [facility] 4 05:35:57 Chest pain Active 2022 Problem Code: R07.89; Problem Code Type: ICD-10; Not Available [facility] 4 05:35:57 Melanocytic nevus Active 2022 Problem Code: D22.9; Problem Code Type: ICD-10; Not Available [facility] 4 05:35:57 Aortic stenosis, non-rheumatic Active 2022 Problem Code: I35.0; Problem Code Type: ICD-10; Not Available [facility] 4 05:35:58 Aortic stenosis, non-rheumatic Completed 202208/14/2023 Problem Code: I35.0; Problem Code Type: ICD-10; Not Available [facility] 4 05:35:58 Indigestion Active 2023 GLORIA CAMP LPN null, [facility] 4 08:48:57 Coronary artery bypass grafts x 3 Active 2023 Kelly Duran RN null, [facility] 4 10:30:01 At increased risk of atrial fibrillation Active [address], [facility] [address] , [facility] 4 13:52:01 Anemia Active [address], [facility] [address] [facility] 4 13:54:39 Problem Notes None recorded. Procedures Surgical History Date Name Laterality Status Provider Name and Address Organization Details Recorded Time 4 coronary artery bypass graft completed Hudson Reeder MA null, [facility] 03/04/2024 14:54:09 Imaging Results Imaging Date Name Status LastModified by Organization Details LastModified Time 12/05/2022 trans-thoracic echocardiogram (TTE) (PROC) completed [address] Xray [address] [place], [place], [address], 09/13/2023 09:29:52 06/01/2022 XR, hip, unilateral [place] [address] Information not available 09/13/2023 09:29:19 12/06/2019 US, echocardiogram completed [address]- Cardiology [address] [facility] , [place], [address], 09/13/2023 09:28:49 Procedure Notes None recorded. Medical [...] es. Take 1 hr prior. Started by [facility]. Not Available Not Available Not Available doxycycli [...] BY MOUTH DAILY 02/24 completed stopped by [facility] Not Available Not Available Not Available brimonidi [...] hours by oral route as needed. active [facility] Not Available Not Available No t Available Aspirin Childrens 81 mg chewable tablet Take 1 tablet by mouth once a day active Not Available Not Available No t Available lisinopri l 5 mg tablet TAKE 1 TABLET BY MOUTH EVERY DAY 02/24 completed stopped by [facility] Not Available Not Available Not Available mupirocin [...] day by oral route. active started by [facility] Not Available Not Available Not Available dorzolami de 2 % (PF) eye drops 1 drop both eyes bid 12/17 completed Not Available Not Available Not Available Vitals Date Recorded Body weight Body mass index (BMI) Body height Heart rate Systolic blood pressure Diastolic blood pressure Provider Name and Address Organization Details Last Updated DateTime 3 19882.7 8 g 23.7 kg/m2 167.64 cm 64 /min 110 mm[Hg] 60 mm[Hg] GLORIA CAMP LPN [facility] 3 08:48:49 Date Recorded Body height Body mass index (BMI) Body weight Heart rate Systolic blood pressure Diastolic blood pressure Provider Name and Address Organization Details Last Updated DateTime 4 167.64 cm 24.6 kg/m2 80039.4 4 g 60 /min 112 mm[Hg] 80 mm[Hg] GLORIA CAMP LPN [facility] 4 08:38:13 Date Recorded Body height Body mass index (BMI) Body weight Heart rate Oxygen saturation Oxygen saturation in Arterial blood by Pulse oximetry Systolic blood pressure Diastolic blood pressure Provider Name and Address Organization Details Last Updated DateTime 4 167.64 cm 22.6 kg/m2 77269.6 5 g 63 /min 99 % 99 % 102 mm[Hg] 54 mm[Hg] Hudson Reeder MA [facility] 4 10:27:28 Social History Question Answer Notes LastModified by Organizat ion Details LastModified Time Tobacco Smoking Status Former Smoker Hudson Reeder MA [facility], [place] - [facility]. 03/06/2024 10:24:50 Do You Have An Advance Directive? Yes Registered 08/15/23 Updated 01/12/24 Information not available 01/15/2024 When Did You Quit Smoking? 11-15years sincelastc igarette [email or web address] Information not available 03/06/2024 Do You Have A Medical Power Of Rubber And Pounder? Yes Received 08/30/23, Scanned. Copies Sent To [facility] And Patient 09/02/23. Information not available 09/02/2023 What Was The Date Of Your Most Recent Tobacco Screening? 03/06/2024 [email or web address] Information not available 03/06/2024 What Is Your Current Pack Years? 30ormorepa [email or web address] Information not available 03/06/2024 How Much Tobacco Do You Smoke? 1 PPD [email or web address] Information not available 03/06/2024 How Many Years Have You Smoked Tobacco? 40 [email or web address] Information not available 03/06/2024 Do You Or Have You Ever Used Any Other Forms Of Tobacco Or Nicotine? No [email or web address] Information not available 03/06/2024 Sex: Male Functional [...] Td(adult) unspecified formulation 11/21/2022 completed Not Available [facility] 10/18/2023 05:30:17 COVID-19, mRNA, LNP-S, PF, 100 mcg/0.5mL dose or 50 mcg/0.25mL dose 01/24/2021 completed Not Available [facility] 10/18/19 05:30:18 COVID-19, mRNA, LNP-S, PF, 100 mcg/0.5mL dose or 50 mcg/0.25mL dose 02/21/2021 completed Not Available [facility] 10/18/19 05:30:18 COVID-19, mRNA, LNP-S, PF, 100 mcg/0.5mL dose or 50 mcg/0.25mL dose 09/11/2021 completed Not Available [facility] 10/18/19 05:30:18 influenza, unspecified formulation 07/26/2021 completed Not Available [facility] 10/18/2023 05:30:18 influenza, unspecified formulation 07/26/2022 completed Not Available [facility] 10/18/2023 05:30:18 influenza, unspecified formulation 07/28/2020 completed Not Available [facility] 10/18/2023 05:30:18 influenza, unspecified formulation 08/05/2019 completed Not Available [facility] 10/18/2023 05:30:18 influenza, unspecified formulation 08/12/2018 completed Not Available [facility] 10/18/2023 05:30:18 Past Encounters Encounter ID Performer Location Encounter Start Date Encounter Closed Date Diagnosis/Indication Diagnosis SNOMED-CT Code [id number] VANESSA JORDAN [address] [address] 09/19/2023 08:39:51 09/19/2023 09:17:42 Aortic valve stenosis 68366966 Essential hypertension 06085897 [id number] VANESSA JORDAN [address] [address] 12/18/2023 08:23:47 12/18/2023 09:29:09 Aortic stenosis, non-rheumatic 831821863 Essential hypertension 41934637 Nonulcer dyspepsia 04707 07 Cramp in lower leg 83166 8004 [id number] TATYANA LEDEZMA MD [address] [address] 03/06/2024 10:15:07 03/06/2024 11:14:28 Postoperative visit 147262146 Aortic rosa m nosis, non-rheumatic 370075553 Stented co ronary artery 671474283 At [facility] ed risk of atrial fibrillation 937524209 Anemia 338264864 Health Concerns Section Related Observation LastModified by Organization Detai ls LastModified Time None Recorded Concern Status LastModified by Organization Details LastModified Time None Recorded Advance Directives Directive Y: Registered 08/15/23Updated 01/12/24 Payers Encounter Date Sequence Insurance Name Policy Number Policy Alicia Covered Member ID Alicia Member ID Guarantor Name 12/18/2023 1 [employer] [id number] Karlos C Patenaude [id number] Karlos C Patenaude 03/06/2024 1 [place] [id number] Karlos C Patenaude [id number] Karlos C Patenaude Notes Date Note Type Note Provider Name and Address Organization Details Recorded Time 09/19/2023 text/html HPI Notes: 63-year-old man here for follow-up hypertension, severe aortic stenosis., He works full-time at [employer]. He lives at home with his dog. He has not heard from [facility] cardiology? referred mid-August. He did decrease his lisinopril to 5 mg, home SBPs running 110- 138, no change in slight lightheadedness with change position. He does continue to get dyspnea on exertion, denies chest pain, resolves fairly quickly no peripheral edema. 12/05/2022 [facility] transthoracic echocardiogram; there is moderate to severe aortic stenosis with disparate indicators. The calculated valve area is 0.8 cm2 is consistent with severe stenosis. Planimetry confirms valve area to 0.9 cm2. The mean gradient of 28 mmHg and peak velocity of 3.6M/S are consistent with moderate stenosis. There is trivial to mild aortic insufficiency. VANESSA JORDAN, [address], [place], [address], [facility]. 09/19/2023 13:31:38 12/18/2023 text/html HPI Notes: 63-year-old man here for follow-up hypertension, severe aortic stenosis., He works full-time at [employer]. He lives at home with his dog. 12/05/2022 [facility] transthoracic echocardiogram; there is moderate to [...] the daytime and Ovaltine in his coffee. [address], [place], [address], [facility], [facility]. 12/18/2023 11:43:00 03/06/2024 text/html HPI Notes: Ana Paula marlow is here today for a postop evaluation TATYANA LEDEZMA MD [address], [place], [address], [facility], [facility]. 03/08/2024 13:57:34
--- OUTSIDE RECORDS SUMMARY | 2024-05-20 09:08 | XMS_ITS | Encounter Summary ---
Author Organization [facility] [place] [address] Care Team Providers Care Paraprofessional Interpreter Name Role Phone Vanessa Christian APRN Primary Care Provider [phone] Encounter Details Date Type Department Care Team [...] AM EDT Office Visit Cardiology at [address] [place] [address] Neftali Ernandez MD [facility] [place] [address] documented as of this encounter Visit Diagnoses Not on filedocumented in this encounter Care Teams Paraprofessional Interpreter Relationship Specialty Start Date End Date Vanessa Christian APRN PCP - General Family Medicine 10/21/23 documented as of this encounter
--- OUTSIDE RECORDS SUMMARY | 2024-05-20 09:08 | XMS_ITS | Encounter Summary ---
Author Organization [facility] Address [facility] [place] [address] Care Team Providers Care Boiler Testing Technician Name Role Phone Vanessa Christian PSYCHIATRIC SECURITY NURSE Primary Care Provider [phone] Reason for Referral * Diagnostic Test (Routine) - Closed Specialty Diagnoses / Procedures Referred By Contac t Referred To Contact Radiology Diagnoses Nonrheumatic aortic valve stenosis Procedures CT Chest wo Contrast (Generic) Louisa Reid PA [facility] [place] [address] [facility] [place] [address] Referral ID Status Reason Start Date Expiration Date V isits Requested Visits Authorized [id number] Closed Specialty Service Requested 01/10/2024 07/11/2025 1 1 Encounter Details Date Type Department Care Team (Late st Contact Info) Description 01/09/2024 Orders Only [place] [address] Zak Farmer MD [facility] [place] [address] Nonrheumatic aortic valve stenosis Social History Tobacco [...] AM EDT Office Visit Cardiology at [address] [place] [address] Neftali Ernandez MD [facility] [place] [address] documented as of this encounter Results * CT Chest wo Contrast (Generic) (02/03/2024 7:44 AM EDT) [place] WORKSTATION ID [id number] RAD Anatomical Region Laterality Modality Chest Computed [...] have questions please contact the health caretaker grounds that requested your imaging first. ? Electronically signed by: Rogerio Wright MD, [facility] ([phone]), at 02/03/2024 10:00 AM Narrative 02/03/2024 10:00 [...] nodule along the minor fissure (series [id number]) and a 8 mm right lower lobe [...] who have questions please contactthe health caretaker grounds that requested your imaging first. Zak Farmer MD IMG CT ORDERABLES documented in this encounter Visit Diagnoses Diagnosis Nonrheumatic aortic valve stenosis Aortic valve disorders Nonrheumatic aortic valve stenosis Aortic valve disorders documented in this encounter Care Teams Boiler Testing Technician Relationship Specialty Start Date End Date Vanessa Christian APRN PCP - General Family Medicine 10/21/23 documented as of this encounter
--- OUTSIDE RECORDS SUMMARY | 2024-05-22 08:40 | XMS_ITS | Encounter Summary ---
Author Organization [facility] Address [facility] [place] [address] Care Team Providers Care Swat Team Member Name Role Phone Vanessa Christian MAURI Primary Care Provider [phone] Encounter Details Date Type Department Care Team (Latest Contact Info) Description 03/12/2024 1:30 PM EDT - 03/12/2024 11:59 PM EDT Hospital Encounter XRay at [address] [place] [address] Coronary artery disease, unspecified vessel or lesion type, unspecified whether angina present, unspecified whether yomba shoshone or transplanted heart Discharge Disposition: Home Social History Tobacco Use Types Packs/Day Years Used Date Smoking Tobacco: Former Cigarettes Smokeless Tobacco: Never Comments:Quit 15 + years ago Alcohol Use Standard Drinks/Week Comments Yes 0 (1 standard drink = 0.6 oz pur e alcohol) rare [facility] Utilities Answer Date Recorded In the past 12 months has e [employer] gas, oil, or water [employer] threatened to shut off services in your [...] place to sleep or slept in a fci (including now)? No 02/18/2024 DH IPV Inpatient [...] AM EDT Office Visit Cardiology at [address] [place] [address] Neftali Ernandez MD [facility] [place] [address] documented as of this encounter Procedures Procedure Name Priority Date/Time Associated Diagnosis Comments XR CHEST PA AND LATERAL Routine 03/12/2024 1:42 PM EDT Coronary artery disease, unspecified vessel or lesion type, unspecified whether angina present, unspecified whether yomb[place] shoshone or transplanted heart documented in this encounter Results * XR Chest PA & Lateral (Generic) (03/12/2024 1:42 PM EDT) WORKSTATION ID [id number] RAD Anatomical Region Laterality Modality Chest N/A [...] who have questions please contact the health health care administrator that requested your imaging first. ? 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 Electronically signed by: Augie Sanchez MD, [facility]([phone]), at 03/13/2024 8:28 AM Zak Farmer MD IMG DX ORDERABLES documented in this encounter Visit Diagnoses Diagnosis Coronary artery disease, unspecified vessel or lesion type, unspecified whether angina present, unspecified whether yomb[place] shoshone or transplanted heart documented in this encounter Care Teams Swat Team Member Relationship Specialty Start Date End Date Vanessa Christian APRN PCP - General Family Medicine 10/21/23 documented as of this encounter
--- OUTSIDE RECORDS SUMMARY | 2024-05-22 08:40 | XMS_ITS | Encounter Summary ---
Author Organization [facility] Address [facility] [place] [address] Care Team Providers Care Manufacturing Project Engineer Name Role Phone Vanessa Christian MAURI Primary Care Provider [phone] Encounter Details Date Type Department Care Team [...] AM EDT Office Visit Cardiology at [address] [place] [phone] Neftali Ernandez MD [facility] [place] [address] documented as of this encounter Visit Diagnoses Not on filedocumented in this encounter Care Teams Manufacturing Project Engineer Relationship Specialty Start Date End Date Vanessa Christian APRN PCP - General Family Medicine 10/21/23 documented as of this encounter
--- OUTSIDE RECORDS SUMMARY | 2024-05-22 08:40 | XMS_ITS | Clinical Summary ---
Author Organization [facility] Address [address] [place] [address] Care Team Providers Care Calculating Machine Mechanic Name Role Phone Vanessa Christian NP Primary Care Provider [phone] Social History Tobacco Use Types Packs/Day Years [...] COVID-19 Vaccine (2022-24 season) 2023 Care Teams Calculating Machine Mechanic Relationship Specialty Start Date End Date Vanessa Christian NP [address] [place] [phone] PCP - General Family Medicine - Primary Care 10/07/23
--- OUTSIDE RECORDS SUMMARY | 2024-05-22 08:40 | XMS_ITS | Encounter Summary ---
Author Organization [facility] Address [address] [place] [address] Care Team Providers Care Motion Picture Photographer Name Role Phone Vanessa Christian Lane MONCADA Primary Care Provider [phone] Encounter Details Date Type Department Care Team (Late st Contact Info) Description 10/24/2023 Lab Requisition [facility] Pathology & Laboratory Medicine - [address] [address] Oscar Nichole MD [address] [place] [address] [phone] Factitial dermatitis Social History Tobacco Use Types [...] management options, if applicable. 10/28/2023 11:24 EST [facility] Final Diagnosis A. SKIN OF WORSHIP, LEFT, SHAVE BIOPSY: - Seborrheic keratosis, pigmented. 10/28/2023 11:24 EST [facility] Attestation By the signature below, the attending physician certifies that they have 1) personally conducted a gross and/or microscopic examination of the described specimen(s), and/or personally interpreted the results of laboratory testing of the described specimen(s), and 2) personally rendered or confirmed the above diagnosis. 10/28/2023 11:24 [facility] at [address]4 Microscopic Description The stratum corneum is thickened by compact and basketweave orthokeratosis with formation of horn pseudocysts. The epidermis is acanthotic with formation of broad and anastomosing trabeculae. The trabeculae are composed of basaloid keratinocytes with round uniform nuclei. The keratinocytes have a variable amount of melanin pigment. 10/28/2023 11:24 [facility] Clinical History Pigmented 2 cm patch; clinical diagnosis code: L98.1 10/28/2023 11:24 [facility] Gross Description A. Received in [...] A3. Nora Anderson 10/25/2023 8:47 10/28/2023 11:24 [facility] Performing Lab [facility] 10/28/2023 11:24 [facility] Scanned Images 10/28/2023 11:24 [facility] Tissue SPECIMEN FROM SKIN / Unknown 10/24/2023 14:30 EST 10/24/2023 22:04 EST Oscar Nichole MD PATHOLOGY ORDERABLES [facility] [address] [place] [address] documented in this encounter Visit Diagnoses Diagnosis Factitial dermatitis Dermatitis factitia (artefacta) documented in this encounter Care Teams Motion Picture Photographer Relationship Specialty Start Date End Date Vanessa Christian NP [address] [place] [address] PCP - General Family Medicine - Primary Care 10/07/23 documented as of this encounter
--- OUTSIDE RECORDS SUMMARY | 2024-05-22 08:40 | XMS_ITS | Encounter Summary ---
Author Organization [facility] Address [facility] [place] [address] Care Team Providers Care Flight Test Shop Mechanic Name Role Phone Vanessa Christian MAURI Primary Care Provider [phone] Encounter Details Date Type Department Care Team (Latest Contact Info) Description 05/20/2024 Travel Social History Tobacco Use Types Packs/Day Years Used Date Smoking Tobacco: Former Cigarettes Smokeless Tobacco: Never Comments:Quit 15 + years ago Alcohol Use Standard Drinks/Week Comments Yes 0 (1 standard drink = 0.6 oz pur e alcohol) rare [facility] Utilities Answer Date Recorded In [...] 11:00 AM EDT Office Visit Cardiology at [address] [place] [id number] Neftali Ernandez MD [facility] [place] [address] documented as of this encounter Visit Diagnoses Not on filedocumented in this encounter Care Teams Flight Test Shop Mechanic Relationship Specialty Start Date End Date Vanessa Christian APRN PCP - General Family Medicine 10/21/23 documented as of this encounter
--- OUTSIDE RECORDS SUMMARY | 2024-05-22 08:40 | XMS_ITS | Clinical Summary ---
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 Logistics and preliminary review of TONY were reviewed with patient. - Refer to SHT Hypertension 08/14/2023 HLD (hyperlipidemia) 08/14/2023 Resolved Problems Problem Noted Date Diagnosed Date Resolved Date Chest pressure 08/14/2023 10/21/2023 SILVA (dyspnea on exertion) 08/14/2023 Encounters Date Type Department Care Team Description 05/20/2024 Travel 03/12/2024 2:40 PM EDT Office [place] [address] Zak Farmer MD Coronary artery disease, unspecified vessel or lesion type, unspecified whether angina present, unspecified whether rampart or transplanted heart 03/12/2024 1:30 PM EDT - 03/12/2024 11:59 PM EDT Hospital Encounter XRay at [facility] [place] [address] [place] [address] Coronary artery disease, unspecified vessel or lesion type, unspecified whether angina present, unspecified whether rampart or transplanted heart Discharge Disposition: Home 03/12/2024 Travel 02/24/2024 Orders Only Cardiac Surgery [facility] [place] [address] Tayler, NinaMAURI 02/17/2024 5:43 AM EDT - 02/24/2024 11:23 AM EDT Hospital Encounter Heart and Vascular Unit Level 4 Wing B at [facility] [place] [address] Zak Farmer MD S/P AVR (Primary Dx); [...] oz pur e alcohol) rare [facility] Utilities Answer Date Recorded In the past 12 months has th e electric, gas, oil, or water [employer] threatened to shut off services in your [...] AM EDT Office Visit Cardiology at [address] [place] [address] Neftali Ernandez MD [facility] [address] Health Maintenance Due Date Last Done Comments [...] series) 06/07/2024 Medical Devices Implanted Type Area Refrigerator Car Icer Device Identifier Shelf Expiration Date Model / Serial / Lot Cable,Cut,Edg ,Blnt,Ss,3tpr ([id number]) - [id number] Implanted:Qty : 1 on 02/17/2024 by Zak Farmer MD at [facility] IMPLANTS Midline: Chest [employer] - [id number] 09/02/2028 [id number] / / [id number] Valve Coronary Aortic 23mm Tissue Trnscath Biopros Inspiris ([id number]) (Autoreq) - [id number] Implanted:Qty : 1 on 02/17/2024 by Zak Farmer MD at [facility] IMPLANTS Heart [employer] - TSAI LI 09/15/2027 [id number] / [id number] / Procedures Procedure Name Priority Date/Time Associated Diagnosis Comments EKG 12-LEAD Routine 03/12/2024 2:35 PM EDT Coronary artery disease, unspecified vessel or lesion type, unspecified whether angina present, unspecified whether rampart or transplanted heart XR CHEST PA AND LATERAL Routine 03/12/2024 1:42 PM EDT Coronary artery disease, unspecified vessel or lesion type, unspecified whether angina present, unspecified whether rampart or transplanted heart SCAN DOC: TELEMETRY STRIPS [...] METABOLIC PANEL Routine 02/20/2024 4:23 AM EDT from Last 3 Months Results * EKG 12 Lead (03/12/2024 2:35 PM EDT) Ventricular rate 59 BPM MUSE SYSTEM Atrial Rate 59 BPM MUSE SYSTEM P-R Interval 190 ms MUSE SYSTEM QRS Duration 92 ms MUSE SYSTEM Q-T Interval 406 ms MUSE SYSTEM QTC Calculated (Bezet) 401 ms MUSE SYSTEM Calculated P Medina -12 degrees MUSE SYSTEM Calculated R [place] 24 degrees MUSE SYSTEM Calculated T Medina 74 degrees MUSE SYSTEM INTERPRETATION Sinus bradycardia T wave abnormality, consider anterior ischemia Abnormal ECG When compared with ECG of 17-FEB-2024 13:24, MD interval has decreased T wave inversion now evident in Anterior leads Confirmed by Paul Guzman ([id number]) on 03/15/2024 8:36:23 AM MUSE SYSTEM 03/12/2024 2:35 PM EDT 03/15/2024 8:36 AM EDT Zak Farmer MD ECG ORDERABLES MUSE SYSTEM * XR Chest PA & Lateral (Generic) (03/12/2024 1:42 PM EDT) Only the most recent of2 resultswithin the time period is included. WORKSTATION ID [id number] RAD Anatomical Region Laterality Modality Chest N/A [...] have questions please contact the health career counselor that requested your imaging first. ? 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 Zak Farmer MD IMG DX ORDERABLES * Scan Doc: Telemetry Strips (02/24/2024 8:03 AM EDT) Only the most recent of27 resultswithin the time period is included. Narrative 02/24/2024 8:03 AM EDT Ordered by an unspecified provider. Scanning Provider MEDIA MGR SCAN EXT O RDR/RSLT * Potassium (02/24/2024 4:42 AM EDT) Only the most recent of3 resultswithin the time period is included. [facility] Signature Potassium 4.0 3.5 - 5.0 mmol/L [facility] Comment: Please note: ??Patients with WBC >100,000 may have falsely elevated Potassium levels. ??For accurate Potassium quantification in these patients send serum separator tube (gold top) for subsequent determinations. ??Contact the Clinical Chemistry Laboratory if there are any questions. Blood 02/24/2024 4:42 AM EDT 02/24/2024 4:59 AM EDT Narrative Resulting Agency Comment Spec In Lab Zak Farmer MD CHEMISTRY ORDERABLE S [facility] [place] [address] * (ABNORMAL) Basic Metabolic Panel (non-fasting) (02/23/2024 4:24 AM EDT) Only the most recent of3 resultswithin the time period is included. Glucose 117 65 - 199 mg/dL [facility] Comment:Diabetes: >=200 mg/d L plus symptoms Blood Urea Nitrogen 18 10 - 20 mg/dL [facility] Creatinine 0.71(L) 0.80 - 1.50 mg/dL [facility] Sodium 138 135 - 145 mmol/L [facility] Potassium 4.4 3.5 - 5.0 mmol/L [facility] Comment: Please note: ??Patients with WBC >100,000 may have falsely elevated Potassium levels. ??For accurate Potassium quantification in these patients send serum separator tube (gold top) for subsequent determinations. ??Contact the Clinical Chemistry Laboratory if there are any questions. Chloride 101 98 - 107 mmol/L [facility] Carbon Dioxide 26 22 - 31 mmol/L [facility] Anion Gap 11 5 - 15 mmol/L [facility] Calcium 8.8 8.5 - 10.5 mg/dL [facility] Est Glomerular Filtration Rate 102 >=60 mL/min/1. 73 m?? [facility] Comment: This patient's estimated GFR [...] In Lab Romeo Carpio MD CHEMISTRY ORDERABLES [facility] [place] [address] * Lactate, whole blood, send to lab ([facility] (02/21/2024 9:45 AM EDT) Lactate WB 2.0 0.5 - 2.2 mmol/L [facility] Blood 02/21/2024 9:45 AM EDT 02/21/2024 9:52 AM EDT Narrative Resulting Agency Comment Spec In Lab Zak Farmer MD CHEMISTRY ORDERABLE S Performing Organization Address [facility]/ZIP Co de Phone Number [facility] [place] [address] * Lipase (02/21/2024 9:45 AM EDT) Lipase 56 0 - 60 unit/L [facility] Blood 02/21/2024 9:45 AM EDT 02/21/2024 9:52 AM EDT Narrative Resulting Agency Comment Spec In Lab Zak Farmer MD CHEMISTRY ORDERABLE S Performing Organization Address [facility] Co de Phone Number [facility] [place] [address] * Amylase (02/21/2024 9:45 AM EDT) Amylase 69 28 - 100 unit/L [facility] Blood 02/21/2024 9:45 AM EDT 02/21/2024 9:52 AM EDT Narrative Resulting Agency Comment Spec In Lab Zak Farmer MD CHEMISTRY ORDERABLE S Performing Organization Address [facility] Co de Phone Number [facility] [place] [address] * (ABNORMAL) Hepatic Function Panel (02/21/2024 9:45 AM EDT) Protein, Total 5.7(L) 6.1 - 8.0 g/dL [facility] Albumin 3.3 3.2 - 5.2 g/dL [facility] Aspartate Aminotransferase 13 0 - 39 unit/L [facility] Alanine Aminotransferase 16 0 - 55 unit/L [facility] Alkaline Phosphatase 63 40 - 130 unit/L [facility] Bilirubin, Total 0.6 0.2 - 1.3 mg/dL [facility] Bilirubin, Direct 0.2 0.0 - 0.3 mg/dL [facility] Blood 02/21/2024 9:45 AM EDT 02/21/2024 9:52 AM EDT Narrative Resulting Agency Comment Spec In Lab Zak Farmer MD CHEMISTRY ORDERABLE S [facility] [place] [address] * Scan, Peripheral Blood (02/20/2024 4:23 AM EDT) Plat estimate Decreased [facility] RBC Morphology Normal [facility] Blood 02/20/2024 4:23 AM EDT 02/20/2024 4:42 AM EDT Narrative Resulting Agency Comment Spec In Lab Minnie FRENCH HEMATOLOGY ORDE ASH [facility] [place] [address] * (ABNORMAL) Hemogram (02/20/2024 4:23 AM EDT) White Blood Cell 12.7(H) 4.0 - 9.5 x10(3)/mc L [facility] Red Blood Cell 4.26(L) 4.58 - 5.54 x10(6)/mc L [facility] Hemoglobin 12.3(L) 13.7 - 16.5 g/dL [facility] Hematocrit 37.1(L) 40.5 - 48.5 % [facility] Mean Cell Volume 87.1 82.9 - 93.1 fL [facility] Mean Cell Hemoglobin 28.9 27.5 - 32.1 pg [facility] Mean Cell Hemoglobin Concentration 33.2 32.0 - 35.7 g/dL [facility] Platelet 88(L) 145 - 357 x10(3)/mc L [facility] RDW Standard Deviation 43.5 36.0 - 45.0 fL [facility] RDW coefficient of variation 13.7 11.4 - 13.8 % [facility] Mean Platelet Volume 10.2 7.6 - 12.9 fL [facility] NRBC% auto 0.0 % [facility] NRBC Absolute 0.000 0.000 - 0.000 x10(3)/mc L [facility] Blood 02/20/2024 4:23 AM EDT 02/20/2024 4:42 AM EDT Narrative Resulting Agency Comment Spec In Lab Minnie FRENCH HEMATOLOGY CECILIO ALEMAN Performing Organization Address City/State/[facility] Co de Phone Number [facility] [place] [address] * (ABNORMAL) Differential, Automated (02/20/2024 4:23 AM EDT) Neutrophil % 81.7 % [facility] Neutrophil Absolute 10.37(H) 1.70 - 6.10 x10(3)/mc L [facility] Lymph % 7.4 % [facility] Lymphocytes Abs 0.9 0.9 - 3.2 x10(3)/mc L [facility] Monocyte % 9.7 % [facility] Monocyte Abs 1.2(H) 0.3 - 0.9 x10(3)/mc L [facility] Eos % 0.1 % [facility] Eosinophils Abs 0.0 0.0 - 0.4 x10(3)/mc L [facility] Basophil % 0.2 % [facility] Baso Absolute 0.0 0.0 - 0.1 x10(3)/mc L [facility] Immature Gran % 0.90 % [facility] Comment: Immature granulocytes(IG's)percentage and absolute count will include metamyelocytes, myelocytes, and promyelocytes. Blood smears from CBCs yielding IG's will be scanned manually for concordance. If this scan disagrees with the automated IG or if promyelocytes are noted, a manual differential will be performed. Immature Gran Absolute 0.12(H) 0.00 - 0.04 x10(3)/mc L [facility] Blood 02/20/2024 4:23 AM EDT 02/20/2024 4:42 AM EDT Narrative Resulting Agency Comment Spec In Lab Minnie FRENCH HEMATOLOGY CECILIO ALEMAN [facility] [place] [address] from Last 3 Months Advance Directives * [...] Status decision made by: Patient Care Teams Coin Rolling Machine Operator Relationship Specialty Start Date End Date Vanessa Christian APRN PCP - General Family Medicine 10/21/23
--- OUTSIDE RECORDS SUMMARY | 2024-05-22 08:40 | XMS_ITS | Referral Summary ---
Author Organization [facility] Address [address] [place] [address] Care Team Providers Care Balance Screwhead Polisher Name Role Phone Filidayna Vanessa Sherman NP Primary Care Provider [phone] Social History Tobacco Use Types Packs/Day Years Used Date Smoking Tobacco: Never Assessed Sex and Gender Information Value Date Recorded Sex Assigned at Not on file Gender Identity Not on file Sexual Orientation Not on file Plan of Treatment Not on file Care Teams Balance Screwhead Polisher Relationship Specialty Start Date End Date Vanessa Christian NP [address] [place] [address] PCP - General Family Medicine - Primary Care 10/07/23
--- OUTSIDE RECORDS SUMMARY | 2024-05-22 08:41 | XMS_ITS | Encounter Summary ---
Author Organization [facility] Address [facility] [place] [address] Care Team Providers Care Dairy Clerk Name Role Phone Gino Vanessa Lane DOTSON Primary Care Provider [phone] Encounter Details Date Type Department Care Team (Late st Contact Info) Description 02/24/2024 Orders Only Cardiac Surgery [facility] [place] [place] [address] Trudi Lester APRN [facility] [place] [address] Social History Tobacco Use Types Packs/Day Years Used Date Smoking Tobacco: Former Cigarettes Smokeless Tobacco: Never Comments:Quit 15 + years ago Alcohol Use Standard Drinks/Week Comments Yes 0 (1 standard drink = 0.6 oz pur e alcohol) rare [facility] Utilities Answer Date Recorded In the past 12 months has e [employer], gas, oil, or water [email or web address] threatened to shut off services in your [...] AM EDT Office Visit Cardiology at [address] [place] [address] Neftali Ernandez MD [facility] [place] [address] documented as of this encounter Visit Diagnoses Not on filedocumented in this encounter Care Teams Dairy Clerk Relationship Specialty Start Date End Date Vanessa Christian APRN PCP - General Family Medicine 10/21/23 documented as of this encounter
--- OUTSIDE RECORDS SUMMARY | 2024-05-22 08:41 | XMS_ITS | Encounter Summary ---
Author Organization [facility] [place] [address] Care Team Providers Care Land Management Forester Name Role Phone Aparna Jordan MAURI Primary Care Provider [phone] Reason for Visit * Auth/Cert (Routine) Specialty [...] ARTERIAL GRAFT (WRVU 7.93) Hayder Graham MD [facility] [place] [address] [facility] Referral ID Status Reason Start Date Expiration Date Visits Re quested Visits Authorized [id number] 1 1 Encounter Details Date Type Department Care Team (Late st Contact Info) Description 02/17/2024 7:30 AM EDT - 02/17/2024 1:26 PM EDT Surgery [place] [id number] Hayder Graham MD [facility] [place] [address] ENDOSCOPIC HARVEST VEIN(S) FOR CABG (WRVU 0.31) Social History Tobacco Use Types Packs/Day Years Used Date Smoking Tobacco: Former Cigarettes Smokeless Tobacco: Never Comments:Quit 15 + years ago Alcohol Use Standard Drinks/Week Comments Yes 0 (1 standard drink = 0.6 oz pur e alcohol) rare [facility] Utilities Answer Date Recorded In the past [...] Patient Age: 63 y.o. Birthdate: 1960 Language: [place] Islander Race: White Ethnicity: Not nor Admit Date: 02/17/2024 Discharge Date: 02/24/24 Attending Physician: Hayder Graham MD Follow-up Recommendations for Providers: Please continue routine management of cardiovascular risk factors including blood pressure, lipids,glucose, etc. Please note any changes to medications. Patient to follow up with PCP, Aparna Jordan APRN, in 1-2 weeks. Patient to follow up with Nib Inspector, Neftali Ernandez MD , in 2 weeks. Patient to follow up with Cardiac Surgeon, Dr. Hayder Graham, with a chest x-ray, EKG, and Echo. Inpatient Provider Contact Information: 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 Past Surgical History: Procedure Laterality Date PRO CABG, ARTERIAL, SINGLE N/A 02/17/2024 @CABG, USING ARTERIAL GRAFT;SINGLE ARTERIAL GRAFT (WRVU 33.75) performed by Hayder Graham MD at [facility] MAIN OR PRO CABG, ARTERY-VEIN, TWO N/A 02/17/2024 @CABG, TWO VENOUS GRAFTS & ARTERIAL GRAFT (WRVU 7.93) performed by Hayder Graham MD at [facility] MAIN OR PRO ENDOSCOPY W/VIDEO-ASST VEIN HARVEST, CABG Left 02/17/2024 ENDOSCOPIC HARVEST VEIN(S) FOR CABG (WRVU 0.31) performed by Hayder Graham MD at [facility] MAIN OR PRO REPLACEMENT PROSTHETIC AORTIC VALVE OPEN W CARDIOPULMONARY BYPASS HOMOGRF/STENT N/A 02/17/2024 @REPLACE AORTIC VALVE, OPEN, W\CPB, W\PROSTHETIC VALVE (WRVU 41.32) performed by Hayder Graham MD at [facility] MAIN OR Prior To Admission [...] insufficiency. He has glaucoma. He used to bacCognitics until about 15 years ago. He has undergone prior herniorrhaphy. 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 Major Procedures/Operations: 02/17/24 s/p avr/cabgx3 CABG x 3 JSOE->LAD SVG->dRCA SVG->OM1 EVH from LLE AVR with a 23 mm Inspiris Bioprosthesis Hospital Course: Karlos Garcia was admitted to [facility] on 02/17/2024 via the Same Day Program. [...] Hayder Graham and/or the Cardiac Surgery Physician Statistical Clerk Advertising Team may be reached at . Antibiotic [...] Please refer to the card with the Stateless Heart Association Guidelines for more information. You [...] Dr. Hayder Graham. You may use a Oaks Track or treadmill but avoid any pulling [...] friends, go to a movie, go to jainism, etc. Heavy activities: No hunting, skiing, jogging, [...] should resume a low fat, low cholesterol, Stateless Heart Association Diet. Driving: No driving until [...] while being managed by your PCP and/or Nib Inspector. For future medication refills, please refer to your PCP and/or Nib Inspector after your discharge from our service. Thank you REMOVE CHEST TUBE SUTURES ON OR AFTER 03/02/24 Home oxygen therapy: N/A Follow up appointments: You should follow up with your PCP, Aparna Jordan APRN, in 1-2 weeks. Our office will schedule an appointment with your Nib Inspector, Neftali Ernandez MD , in 2 weeks. [...] Future Orders Complete By Expires Echocardiogram Transthoracic [71188 CPT(R)] 03/26/2024 09/25/2024 Process Instructions: Scheduling Instructions: Questions: Where will study be performed?: [facility] Does the patient have Congenital Heart Disease?: Does patient require sedation?: Sedation rationale: XR Chest PA & Lateral (Generic) [63601 99863 Custom] 03/26/2024 09/25/2024 Process Instructions: Scheduling Instructions: Questions: Portable exam?: Reason for exam and clinical history: s/p avr/cabg Clinical information / jerome questions for radiologist: Stat read required?: Date of injury if applicable: Requested Time: Where will study be performed?: [facility] Radiology Referral to Cardiac Rehab [PJK251 Custom] As directed Process Instructions: If no [...] admission to Home Health. 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 [address] [place] [id number] RN orders: Cardiopulmonary assessment, incisional assessment, assess [...] issues please call the Cardiology Office at [phone] FOR MEDICARE ONLY: (please delete this section [...] care: As above. Signed: NEFTALI MENON PA-C [facility] Section of Cardiac Surgery [facility] [address] FAX [phone] Date: 02/24/2024 CC: Aparna Jordan, MAURI Jordan, Aparna Sherman APRN [address] [place] [address] documented in this encounter Discharge Instructions * [...] Hayder Graham and/or the Cardiac Surgery Physician Statistical Clerk Advertising Team may be reached at . Antibiotic [...] Please refer to the card with the Stateless Heart Association Guidelines for more information. You [...] Dr. Hayder Graham. You may use a Oaks Track or treadmill but avoid any pulling [...] friends, go to a movie, go to jainism, etc. Heavy activities: No hunting, skiing, jogging, [...] should resume a low fat, low cholesterol, Stateless Heart Association Diet. Driving: No driving until [...] while being managed by your PCP and/or Nib Inspector. For future medication refills, please refer to your PCP and/or Nib Inspector after your discharge from our service. Thank you REMOVE CHEST TUBE SUTURES ON OR AFTER 03/02/24 Home oxygen therapy: N/A Follow up appointments: You should follow up with your PCP, Aparna Jordan APRN, in 1-2 weeks. Our office will schedule an appointment with your Nib Inspector, Neftali Ernandez MD , in 2 weeks. [...] 0600 and on the weekends please page [phone]. * Eric Barahona PA - 02/23/2024 9:27 [...] 0600 and on the weekends please page [phone]. * Tiffanie Owens - 02/22/2024 2:48 PM [...] d/c for 10 days. 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 He works Precautions/Special Considerations: STERNAL [...] LRAD and supervision Time IN / OUT: 8588-6728 Total Time: 30 minutes; TEFx2 Tiffanie Owens Pager: [phone] Physical Therapy Inpatient Rehabilitation Department * Romeo [...] 0600 and on the weekends please page [phone]. * Kelley Hinson PTA - 02/21/2024 10:15 [...] d/c for 10 days. 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 * Kelley Hinson PTA - 02/20/2024 3:32 PM EDT 02/20/24 6417 Evaluation & Treatment Document Type contact Total Minutes, Physical Therapy 0 Comment, Session Not Performed Checked in w/ pt this PM for ongoing PT services, pt politely declined, stating he had been dealing w/ nausea all day, made plan to see him tomorrow morning, will f/u at that time Kelley Hinson PTA Pager: [phone] Physical Therapy Inpatient Rehab Department * Louisa [...] 0600 and on the weekends please page [phone]. * Maris Benavides, PT - 02/19/2024 11:22 [...] d/c for 10 days. 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 Precautions/Special Considerations: STERNAL [...] outlined inthis evaluation. MARIS BENAVIDES, PT Pager: [phone] Physical Therapy Inpatient Rehabilitation Department Time IN / OUT: 5026-9533 Total Time: 38 (eval) minutes; * Antonio [...] 0600 and on the weekends please page [phone]. * Minnie Begum PA - 02/18/2024 8:25 [...] 0600 and on the weekends please page [phone]. * Kim Ha RCP - 02/17/2024 2:25 [...] plan since last visit. Hayder Graham MD [phone] Source Note - Hayder Graham MD - [...] given written informed consent. Hayder Graham MD [phone] * Hayder Graham MD - 02/17/2024 7:00 [...] insufficiency. He has glaucoma. He used to bacCognitics until about 15 years ago. He has [...] given written informed consent. Hayder Graham MD [phone] documented in this encounter Miscellaneous Notes * [...] information for follow-up Home Health & Hospice, [address] [place] [address] Cardiac Rehab, [facility] [address] [place] [address] [place] [address] Transportation: family or friend will provide Functional status prior to admission: Independent Home Environment: Others in the home: alone. Current Living Arrangements: home/apartment/condo. Accessibility Concerns:a few steps to enter 1 floor home. Current Functional Ability: Assistive Person and Equipment DME used at home: none DME Needed at Discharge: N/A Patient is insured through: Primary Insurance: [facility] Payor: [facility] / Plan: [facility] PPO / Product Type: *No [...] pain managed with scheduled Tylenol. Worked with [employer]. Ambulated in the roque multiple times during [...] anticipated Patient is insured through: Primary Insurance: [facility] Payor: [facility] / Plan: [facility] PPO / Product Type: *No Product type* / Secondary Insurance: N/A Last Physical Therapy Recommendation: home with home health (Str coming to stay for a week or two upon d/c) with to be determined (owns rolling walker, shower seat) Plan for discharge is: Home w/ Services Outpatient Agency/Support Group Needs: Homecare agency Home Health Services: Physical Therapy, Registered Nurse Agency Referrals: [facility]. [address] [place] [address] Transportation: family or friend will provide Barriers to discharge: Discharge planning Plan going forward: Service Care Management will continue to follow and assist with discharge planning and coordination of care as indicated. 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 (Only good for 180 days) Any patient receiving care in [place] must abide by [place] law. The hierarchy for surrogate decision making [...] (i) The agent with financial power of continuity person or a conservator appointed in accordance with [...] In the past 12 months has the [employer], gas, oil, or water reQall threatened to shut off services in your [...] Home Address confirmed as: [address] [facility] [address] Physical address: [address] [facility], [address] Social & Family Supports: All names listed [...] Information: none noted Health/Prescription Coverage: Primary Insurance: [facility] Payor: [facility] / Plan: [facility] PPO / Product Type: *No Product type* / Secondary Insurance: N/A ; Prescription Coverage: Yes Preferred Pharmacy: [id number] [address] Sweet Status: Patient is a : No Primary Care Provider confirmed: Aparna Jordan, EXTERN [phone] Patient/Caregiver Goals of Treatment: dc to home Potential Needs for Transition of Care: home health care Agency Referrals: I have met with the patient to: discuss discharge planning needs. provide the [facility] Office of Care Management letter from the Manager Web Application pertaining to rehab referrals. provide a letter describing our affiliations within the [facility] and educate about their right to choose where referrals are sent. provide a list of Home Health Agencies / Durable Medical Equipment vendors which serve their preferred geographic area. provided patient with [facility] Star Quality Rating handout. They have requested referrals to: [facility] [address] [place] [address] Note routed to a Community Living Specialist who will communicate referrals to facilities and [...] planning. Reina Greene RN CM, BSN, [facility]- Ext [phone] * Plan of Care - Binta Trinidad [...] Operative Note Patient Name: Karlos Garcia : [id number] MR#: [id number] Case Date: 02/17/2024 Surgeon: Surgeon(s) and Role: * Hayder rGaham MD - Primary * Neftali Menon PA - Physician Statistical Clerk Advertising Preoperative diagnosis: CAD Postoperative diagnosis: CAD, intraoperative [...] mL Drains: Mediastinal and Left pleural Disposition: [facility] Condition: doing well without problems Attestation: Case Date: 02/17/2024 I performed this procedure without the involvement of a resident. HAYDER GRAHAM MD 02/17/2024 * Op Note - Hayder Graham MD - 02/17/2024 8:20 AM EDT [facility] Operative Note Patient Name: Karlos Garcia : [id number] MR#: [id number] Case Date: 02/17/2024 Surgeon: Surgeons and Role: * Hayder Graham MD - Primary * Neftali Menon PA - Physician Statistical Clerk Advertising Preoperative diagnosis: CAD Postoperative diagnosis: CAD, intraoperative [...] mL Drains: Mediastinal and Left pleural Disposition: [facility] Procedure Description: The patient was brought [...] AM EDT Office Visit Cardiology at [address] [address] Neftali Ernandez MD [facility] [place] [address] Scheduled Orders Name Type Priority Associated Diagnoses [...] Aortic Valve Open W Cardiopulmonary Bypass Homogrf/Stent (71746) Yes 02/17/2024 7:28 AM EDT CAD Cabg, Artery-Vein, Two (19987) Yes 02/17/2024 7:28 AM EDT CAD Cabg, Arterial, Single (76652) Yes 02/17/2024 7:28 AM EDT CAD Endoscopy W/Video-Asst Vein Morris, Cabg (03606) Yes 02/17/2024 7:28 AM EDT CAD POCT [...] Lab Hayder Graham MD CHEMISTRY ORDERABLE S [facility] [place] [address] * (ABNORMAL) Basic Metabolic Panel (non-fasting) (02/23/2024 4:24 AM EDT) Glucose 117 65 - 199 mg/dL [facility] Comment:Diabetes: >=200 mg/d L plus symptoms Blood Urea Nitrogen 18 10 - 20 mg/dL [facility] - 107 mmol/L [facility] Carbon Dioxide 26 22 - 31 mmol/L [facility] Anion Gap 11 5 - 15 mmol/L [facility] Calcium 8.8 8.5 - 10.5 mg/dL [facility] Est Glomerular Filtration Rate 102 >=60 mL/min/1. 73 m?? [facility] [...] MD CHEMISTRY ORDERABLES [facility] [place] [address] * Potassium (02/22/2024 4:30 AM EDT) Potassium [...] Lab Hayder Graham MD CHEMISTRY ORDERABLE S [facility] [place] [address] * (ABNORMAL) Basic Metabolic Panel (non-fasting) (02/21/2024 9:45 AM EDT) Glucose 123 65 - 199 mg/dL [facility] Comment:Diabetes: >=200 mg/d L plus symptoms Blood Urea Nitrogen 22(H) 10 - 20 mg/dL [facility] [...] - 107 mmol/L [facility] Carbon Dioxide Not Perf 22 - 31 [facility] Comment:Add-on request. Samp le too old to perform test. Anion Gap Unable to Calculate 5 - 15 mmol/L [facility] Calcium 8.6 8.5 - 10.5 mg/dL [facility] Est Glomerular Filtration Rate 100 >=60 mL/min/1 .73 m?? [facility] [...] MD CHEMISTRY ORDERABLES [facility] [place] [address] * Lactate, whole blood, send to lab ([facility]) (02/21/2024 9:45 AM EDT) [facility] Lactate WB 2.0 0.5 - 2.2 mmol/L [facility] Blood 02/21/2024 9:45 AM EDT 02/21/2024 9:52 AM EDT Narrative Resulting Agency Comment Spec In Lab Hayder Graham MD CHEMISTRY ORDERABLE S Performing Organization Address [facility]/ZIP Co de Phone Number [facility] [place] [address] * (ABNORMAL) Hepatic Function Panel (02/21/2024 9:45 AM EDT) [facility] Protein, Total 5.7(L) 6.1 - 8.0 g/dL [facility] Albumin 3.3 3.2 - 5.2 g/dL [facility] Aspartate Aminotransferase 13 0 - 39 unit/L [facility] Alanine Aminotransferase 16 0 - 55 unit/L [facility] Alkaline Phosphatase 63 40 - 130 unit/L [facility] Bilirubin, Total 0.6 0.2 - 1.3 mg/dL [facility] Bilirubin, Direct 0.2 0.0 - 0.3 mg/dL [facility] Blood 02/21/2024 9:45 AM EDT 02/21/2024 9:52 AM EDT Narrative Resulting Agency Comment Spec In Lab Hayder Graham MD CHEMISTRY ORDERABLE S Performing Organization Address City/[facility]/ZIP Co de Phone Number [facility] [place] [address] * Lipase (02/21/2024 9:45 AM EDT) Lipase 56 0 - 60 unit/L [facility] Blood 02/21/2024 9:45 AM EDT 02/21/2024 9:52 AM EDT Narrative Resulting Agency Comment Spec In Lab Hayder Graham MD CHEMISTRY ORDERABLE S Performing Organization Address City/[facility]/ZIP Co de Phone Number [facility] [place] [address] * Amylase (02/21/2024 9:45 AM EDT) Amylase 69 28 - 100 unit/L [facility] Blood 02/21/2024 9:45 AM EDT 02/21/2024 9:52 AM EDT Narrative Resulting Agency Comment Spec In Lab Hayder Graham MD CHEMISTRY ORDERABLE S Performing Organization Address [facility] Co de Phone Number [facility] [place] [address] * Potassium (02/21/2024 3:08 AM EDT) [facility] Potassium 3.8 3.5 - 5.0 mmol/L [facility] [...] MD CHEMISTRY ORDERABLE S Performing Organization Address City/[facility]/ZIP Co de Phone Number [facility] [place] [address] * XR Chest PA & Lateral (Generic) (02/20/2024 10:19 AM EDT) [facility] WORKSTATION ID [id number] RAD Anatomical Region Laterality Modality Chest N/A Digital Radiogra phy Impressions 02/20/2024 1:11 PM EDT Small pleural effusions. No pneumothorax Thank you for letting us participate in the care of this patient. ??If you are a health care provider and have any questions regarding this report, please contact the number below. ??For patients who have questions please contact the health customer care voice consultant that requested your imaging first. ? Electronically signed by: Rogerio Cruz MD, [facility] ??([phone]), at 02/20/2024 1:11 PM Narrative 02/20/2024 1:11 PM EDT EXAMINATION: XR CHEST PA AND LATERAL (GENERIC) CLINICAL HISTORY: s/p AVR/CABGx3 TECHNIQUE: PA and lateral views of the chest COMPARISON: 02/17/2024 FINDINGS: Support devices: Interval removal of [place]aila catheter, endotracheal tube and mediastinal chest tubes The cardiac silhouette is stable status post median sternotomy, CABG and aortic valve replacement. There are small pleural effusions. No pneumothorax. Procedure Note Rogerio Cruz MD - 02/20/2024 EXAMINATION: XR CHEST PA AND LATERAL (GENERIC) CLINICAL HISTORY: s/p AVR/CABGx3 TECHNIQUE: PA and lateral views of the chest COMPARISON: 02/17/2024 FINDINGS: Support devices: Interval removal of [place]aila catheter, endotracheal tubeand mediastinal chest tubes The [...] have questions please contactthe health customer care voice consultant that requested your imaging first. Electronically signed by: Rogerio Cruz MD, [facility]([phone]), at 02/20/2024 1:11 PM Hayder Graham MD IMG DX ORDERABLES * Scan, Peripheral Blood (02/20/2024 4:23 AM EDT) Pathologist [facility] Plat estimate Decreased [facility] RBC Morphology Normal [facility] Blood 02/20/2024 4:23 AM EDT 02/20/2024 4:42 AM EDT Narrative Resulting Agency Comment Spec In Lab Minnie FRENCH HEMATOLOGY CECILIO ALEMAN [facility] [place] [address] * (ABNORMAL) Differential, Automated (02/20/2024 4:23 AM EDT) [facility] Neutrophil % 81.7 % [facility] Neutrophil Absolute 10.37(H) 1.70 - 6.10 x10(3)/mc L [facility] Lymph % 7.4 % [facility] Lymphocytes Abs 0.9 0.9 - 3.2 x10(3)/mc L [facility] Monocyte % 9.7 % [facility] Monocyte Abs 1.2(H) 0.3 - 0.9 x10(3)/mc L [facility] Eos % 0.1 % [facility] Eosinophils Abs 0.0 0.0 - 0.4 x10(3)/mc L [facility] Basophil % 0.2 % [facility] Baso Absolute 0.0 0.0 - 0.1 x10(3)/mc L [facility] Immature Gran % 0.90 % [facility] Comment: Immature granulocytes(IG's)percentage and absolute count will include metamyelocytes, myelocytes, and promyelocytes. Blood smears from CBCs yielding IG's will be scanned manually for concordance. If this scan disagrees with the automated IG or if promyelocytes are noted, a manual differential will be performed. Immature Gran Absolute 0.12(H) 0.00 - 0.04 x10(3)/mc L [facility] Blood 02/20/2024 4:23 AM EDT 02/20/2024 4:42 AM EDT Narrative Resulting Agency Comment Spec In Lab Minnie FRENCH HEMATOLOGY CECILIO ALEMAN [facility] [place] [address] * (ABNORMAL) Hemogram (02/20/2024 4:23 AM EDT) White Blood Cell 12.7(H) 4.0 - 9.5 x10(3)/mc L [facility] Red Blood Cell 4.26(L) 4.58 - 5.54 x10(6)/mc L [facility] Hemoglobin 12.3(L) 13.7 - 16.5 g/dL [facility] Hematocrit 37.1(L) 40.5 - 48.5 % [facility] Mean Cell Volume 87.1 82.9 - 93.1 fL [facility] Mean Cell Hemoglobin 28.9 27.5 - 32.1 pg [facility] Mean Cell Hemoglobin Concentration 33.2 32.0 - 35.7 g/dL [facility] Platelet 88(L) 145 - 357 x10(3)/mc L [facility] RDW Standard Deviation 43.5 36.0 - 45.0 fL [facility] RDW coefficient of variation 13.7 11.4 - 13.8 % [facility] LABORATORY Mean Platelet Volume 10.2 7.6 - 12.9 fL [facility] NRBC% auto 0.0 % [facility] NRBC Absolute 0.000 0.000 - 0.000 x10(3)/mc L [facility] Blood 02/20/2024 4:23 AM EDT 02/20/2024 4:42 AM EDT Narrative Resulting Agency Comment Spec In Lab Minnie FRENCH HEMATOLOGY CECILIO ALEMAN [facility] [place] [address] * (ABNORMAL) Basic Metabolic Panel (non-fasting) (02/20/2024 4:23 AM EDT) Glucose 113 65 - 199 mg/dL [facility] Comment:Diabetes: >=200 mg/d L plus symptoms Blood Urea Nitrogen 20 10 - 20 mg/dL [facility] - 107 mmol/L [facility] Carbon Dioxide 25 22 - 31 mmol/L [facility] Anion Gap 8 5 - 15 mmol/L [facility] Calcium 8.7 8.5 - 10.5 mg/dL [facility] Comment:result rechecked-KS Est Glomerular Filtration Rate 102 >=60 mL/min/1. 73 m?? [facility] [...] ORDERABLE S Performing Organization Address [facility] Co de Phone Number [facility] [place] [address] * Potassium (02/19/2024 3:57 AM EDT) Potassium [...] ORDERABLE S Performing Organization Address [facility] Co de Phone Number [facility] [place] [address] * POCT Glucose (02/18/2024 8:24 AM EDT) Glucose, POC 157 65 - 199 mg/dL [facility] Comment: Supplemental ranges: <140 mg/dL before meals <180 mg/dL all other times of the day Blood 02/18/2024 8:24 AM EDT 02/18/2024 8:24 AM EDT Hayder Graham MD POINT [place] [address] * Scan, Peripheral Blood (02/18/2024 1:40 AM EDT) Pathologist [facility] Plat estimate Decreased [facility] RBC Morphology Normal [facility] Blood 02/18/2024 1:40 AM EDT 02/18/2024 1:56 AM EDT Narrative Resulting Agency Comment Spec In Lab Neftali FRENCH HEMATOLOGY ORDER OLE Performing Organization Address City/[facility]/ZIP Co de Phone Number [facility] [place] [address] * (ABNORMAL) Differential, Automated (02/18/2024 1:40 AM EDT) [facility] Neutrophil % 87.1 % [facility] Neutrophil Absolute 15.03(H) 1.70 - 6.10 x10(3)/mc L [facility] Lymph % 3.0 % [facility] Lymphocytes Abs 0.5(L) 0.9 - 3.2 x10(3)/mc L [facility] Monocyte % 9.1 % [facility] Monocyte Abs 1.6(H) 0.3 - 0.9 x10(3)/mc L [facility] Eos % 0.0 % [facility] Eosinophils Abs 0.0 0.0 - 0.4 x10(3)/mc L [facility] Basophil % 0.2 % [facility] Baso Absolute 0.0 0.0 - 0.1 x10(3)/mc L [facility] [...] Absolute 0.10(H) 0.00 - 0.04 x10(3)/ L [facility] Blood 02/18/2024 1:40 AM EDT 02/18/2024 1:56 AM EDT Narrative Resulting Agency Comment Spec In Lab Neftali FRENCH HEMATOLOGY ORDER OLE [facility] [place] [address] * (ABNORMAL) Hemogram (02/18/2024 1:40 AM EDT) White Blood Cell 17.2(H) 4.0 - 9.5 x10(3)/[facility] LABORATORY Red Blood Cell 4.71 4.58 - 5.54 x10(6)/[facility]ORATORY Hemoglobin 13.7 13.7 - 16.5 g/dL [facility] Hematocrit 39.2(L) 40.5 - 48.5 % [facility] Mean Cell Volume 83.2 82.9 - 93.1 [facility] Mean Cell Hemoglobin 29.1 27.5 - 32.1 pg [facility] Mean Cell Hemoglobin Concentration 34.9 32.0 - 35.7 g/dL [facility] Platelet 147 145 - 357 x10(3)/mc L [facility] RDW Standard Deviation 39.9 36.0 - 45.0 [facility] RDW coefficient of variation 13.2 11.4 - 13.8 % [facility] Mean Platelet Volume 9.9 7.6 - 12.9 [facility] NRBC% auto 0.0 % [facility] NRBC Absolute 0.000 0.000 - 0.000 x10(3)/ L [facility] Blood 02/18/2024 1:40 AM EDT 02/18/2024 1:56 AM EDT Narrative Resulting Agency Comment Spec In Lab Neftali FRENCH HEMATOLOGY ORDER OLE [facility] [place] [address] * (ABNORMAL) Basic Metabolic Panel (non-fasting) (02/18/2024 1:40 AM EDT) Glucose 176 65 - 199 mg/dL [facility] Comment:Diabetes: >=200 mg/d L plus symptoms Blood Urea Nitrogen 10 10 - 20 mg/dL [facility] [...] - 107 mmol/L [facility] Carbon Dioxide 20(L) 22 - 31 mmol/L [facility] Anion Gap 9 5 - 15 mmol/L [facility] Calcium 7.6(L) 8.5 - 10.5 mg/dL [facility] Est Glomerular Filtration Rate 105 >=60 mL/min/1. 73 m?? [facility] [...] Lab Hayder Graham MD CHEMISTRY ORDERABLE S [facility] [place] [address] * (ABNORMAL) Troponin (02/18/2024 1:40 AM EDT) Troponin-T, High Sensitivity 342(H) <=22 ng/L [facility] Comment: This patient's troponin [...] [facility] Test Catalog Reference: Fourth [place] Definition of Myocardial Infarction. Journal of the [employer] 2018;72:1776-2947 Blood 02/18/2024 1:40 AM EDT 02/18/2024 1:56 AM EDT Narrative Resulting Agency Comment Spec In Lab Hayder Graham MD CHEMISTRY ORDERABLE S [facility] [place] [address] * POCT Glucose (02/17/2024 8:13 PM EDT) Glucose, POC 142 65 - 199 mg/dL [facility] Comment: Supplemental ranges: <140 mg/dL before meals <180 mg/dL all other times of the day Blood 02/17/2024 8:13 PM EDT 02/17/2024 8:13 PM EDT Hayder Graham MD POINT OF CARE TEST ORDERABLES Performing Organization Address [facility] Co de Phone Number [facility] [place] [address] * POCT Glucose (02/17/2024 5:42 PM EDT) Glucose, POC 160 65 - 199 mg/dL [facility] Comment: Supplemental ranges: <140 mg/dL before meals <180 mg/dL all other times of the day Blood 02/17/2024 5:42 PM EDT 02/17/2024 5:42 PM EDT Hayder Graham MD POINT OF CARE TEST ORDERABLES Performing Organization Address [facility] Co de Phone Number [facility] [place] [address] * Hemoglobin (02/17/2024 5:42 PM EDT) Hemoglobin 13.7 13.7 - 16.5 g/dL [facility] Blood 02/17/2024 5:42 PM EDT 02/17/2024 6:10 PM EDT Narrative Resulting Agency Comment Spec In Lab Hayder Graham MD HEMATOLOGY ORDERABL ES Performing Organization Address City/[facility]/ZIP Co de Phone Number [facility] [place] [address] * Potassium (02/17/2024 5:42 PM EDT) Potassium [...] Lab Hayder Graham MD CHEMISTRY ORDERABLE S [facility] [place] [address] * (ABNORMAL) BLOOD GAS 2 ARTERIAL (02/17/2024 4:18 PM EDT) pH, Arterial 7.34(L) 7.35 - 7.45 [facility] PCO2, Arterial 40 35 - 45 mmHg [facility] PO2, Arterial 78(L) 85 - 104 mmHg [facility] Bicarbonate, Arterial 20.8 20.0 - 26.0 mmol/L [facility] Base Excess, Arterial -5.1(L) -3.0 - 3.0 mmol/L [facility] Hgb Blood Gas 14.6 13.7 - 16.5 g/dL [facility] Oxyhemoglobin, Arterial 93.0(L) 94.0 - 97.0 % [facility] Carboxyhemoglob in, Arterial 0.3 % [facility] Comment: Nonsmokers: 0.5-1.5% COHB Smokers: Variable, but usually less than 10% Toxic: 20-30% COHB Lethal: Greater than 60% COHB Methemoglobin, Arterial 0.8 <=1.5 % [facility] Na Whole Blood 136 [...] MEDICAL CENTER [facility] FIO2 Art 40 % [facility] PF Ratio Art 195 [facility] Blood 02/17/2024 4:18 PM EDT 02/17/2024 4:18 PM EDT Hayder Graham MD POINT OF CARE TEST ORDERABLES [facility] [place] [address] * XR Chest One View (02/17/2024 1:44 PM EDT) [employer] WORKSTATION ID [id number] RAD Anatomical Region Laterality Modality Chest N/A Digital Radiogra phy Impressions 02/17/2024 2:12 PM EDT 1. ??No definite pleural fluid collection or pneumothorax. 2. ??Right IJ [place]aila catheter tip terminates in a descending branch [...] questions please contact the health customer care voice consultant that requested your imaging first. ? Electronically signed by: Denzel Hankins MD, [facility] ??([phone]), at 02/17/2024 2:12 PM Narrative 02/17/2024 2:12 PM EDT EXAMINATION: XR CHEST ONE VIEW CLINICAL HISTORY: s/p avr/cabg eval effusions TECHNIQUE: 1 view of the chest COMPARISON: Chest x-ray 01/09/2024, chest CT 02/03/2024 FINDINGS: ET tube tip terminates 5.2 cm above the carlos. Right IJ [place]-Kaila catheter tip terminates in a descending branch [...] 5.2 cm above the carlos. Right IJ [place]-Ganzcatheter tip terminates in a descending branch of [...] fluid collection or pneumothorax. 2. Right IJ [place]aila catheter tip terminates in a descending branch ofthe right pulmonary artery. Suggest catheter retraction. 3. Additional support lines and tubes as above. Thank you for letting us participate in the care of this patient. If youare a health care provider and have any questions regarding this report,please contact the number below. For patients who have questions please contactthe health customer care voice consultant that requested your imaging first. Electronically signed by: Denzel Hankins MD, [facility]([phone]), at 02/17/2024 2:12 PM Hayder Graham MD IMG DX ORDERABLES * (ABNORMAL) BLOOD GAS 2 ARTERIAL (02/17/2024 1:31 PM EDT) pH, Arterial 7.35 7.35 - 7.45 [facility] PCO2, Arterial 39 35 - 45 mmHg [facility] PO2, Arterial 320(H) 85 - 104 mmHg [facility] Bicarbonate, Arterial 21.4 20.0 - 26.0 mmol/L [facility] Base Excess, Arterial -4.2(L) -3.0 - 3.0 mmol/L [facility] Hgb Blood Gas 14.1 13.7 - 16.5 g/dL [facility] Oxyhemoglobin, Arterial 97.9(H) 94.0 - 97.0 % [facility] Carboxyhemoglob in, Arterial 0.3 % [facility] Comment: Nonsmokers: 0.5-1.5% COHB Smokers: Variable, but usually less than 10% Toxic: 20-30% COHB Lethal: Greater than 60% COHB Methemoglobin, Arterial 0.7 <=1.5 % [facility] Na Whole Blood 137 [...] MEDICAL CENTER LABORAT[facility] FIO2 Art 100 % [facility] PF Ratio Art 320 [facility] Blood 02/17/2024 1:31 PM EDT 02/17/2024 1:31 PM EDT Hayder Graham MD POINT OF CARE TEST ORDERABLES Performing Organization Address City/State/[facility] Co de Phone Number [facility] [place] [address] * (ABNORMAL) Coox2 (02/17/2024 1:21 PM EDT) pO2, Coox 44 mmHg [facility] Hgb Blood Gas 13.1(L) 13.7 - 16.5 g/dL [facility] Oxyhemoglobin, Coox 76.4 % [facility] Carboxyhemoglo bin, Coox 0.3 % [facility] Comment: Nonsmokers: 0.5-1.5% COHB Smokers: Variable, but usually less than 10% Toxic: 20-30% COHB Lethal: Greater than 60% COHB Methemoglobin, Coox 0.8 <=1.5 % [facility] Source Coox Mixed Venous [facility] Blood 02/17/2024 1:21 PM EDT 02/17/2024 1:21 PM EDT Hayder Graham MD POINT OF CARE TEST ORDERABLES [facility] [place] [address] * (ABNORMAL) BLOOD GAS 2 ARTERIAL (02/17/2024 12:14 PM EDT) pH, Arterial 7.39 7.35 - 7.45 [facility] PCO2, Arterial 40 35 - 45 mmHg [facility] PO2, Arterial 338(H) 85 - 104 mmHg [facility] Bicarbonate, Arterial 23.7 20.0 - 26.0 mmol/L [facility] Base Excess, Arterial -1.3 -3.0 - 3.0 mmol/L [facility] Hgb Blood Gas 11.0(L) 13.7 - 16.5 g/dL [facility] Oxyhemoglobin, Arterial 98.8(H) 94.0 - 97.0 % [facility] Carboxyhemoglob in, Arterial 0.3 % [facility] Comment: Nonsmokers: 0.5-1.5% COHB Smokers: Variable, but usually less than 10% Toxic: 20-30% COHB Lethal: Greater than 60% COHB Methemoglobin, Arterial 0.3 <=1.5 % [facility] Na Whole Blood 135 [...] TEST ORDERABLES Performing Organization Address [facility] Co de Phone Number [facility] [place] [address] * (ABNORMAL) Fibrinogen (02/17/2024 12:10 PM EDT) [...] ORDERABLE S Performing Organization Address [facility] Co de Phone Number [facility] [place] [address] * (ABNORMAL) Thrombin time (02/17/2024 12:10 PM [...] ORDERABLE S Performing Organization Address [facility] Co de Phone Number [facility] [place] [address] * APTT (02/17/2024 12:10 PM EDT) Partial Thromboplastin Time 33 25 - 37 sec [facility] ORDERABLE S Performing Organization Address [facility] Co de Phone Number [facility] [place] [address] * (ABNORMAL) Prothrombin Time (02/17/2024 12:10 PM EDT) Prothrombin Time 16.7(H) 9.4 - 12.5 sec [facility] Comment: OR Result called by ?? LOMARL OR Results read back by: ? alondra pagan at 2024-02-17 12:41:48 International Normalization Ratio 1.5 [facility] Comment: OR Result [...] HEMATOLOGY ORDERABLE S [facility] [place] [address] * (ABNORMAL) Hemogram (02/17/2024 12:10 PM EDT) White Blood Cell 11.1(H) 4.0 - 9.5 x10(3)/mc L [facility] Red Blood Cell 3.50(L) 4.58 - 5.54 x10(6)/mc L [facility] Hemoglobin 10.4(L) 13.7 - 16.5 g/dL [facility] Hematocrit 30.2(L) 40.5 - 48.5 % [facility] Comment: This result has been called to ALONDRA PAGAN by Eddie López on 02 17 2024 at 1226, and has been read back. Mean Cell Volume 86.3 82.9 - 93.1 fL [facility] Mean Cell Hemoglobin 29.7 27.5 - 32.1 pg [facility] Mean Cell Hemoglobin Concentration 34.4 32.0 - 35.7 g/dL [facility] Platelet 118(L) 145 - 357 x10(3)/mc L [facility] RDW Standard Deviation 40.2 36.0 - 45.0 fL [facility] RDW coefficient of variation 12.8 11.4 - 13.8 % [facility] Mean Platelet Volume 9.5 7.6 - 12.9 fL [facility] NRBC% auto 0.0 % [facility] NRBC Absolute 0.000 0.000 - 0.000 x10(3)/mc L [facility] Blood 02/17/2024 12:1 0 PM EDT 02/17/2024 12:19 PM EDT Narrative Resulting Agency Comment Spec In Lab Tara York MD HEMATOLOGY ORDERABLE S [facility] [place] [address] * (ABNORMAL) BLOOD GAS 2 ARTERIAL (02/17/2024 11:43 AM EDT) pH, Arterial 7.38 7.35 - 7.45 [facility] PCO2, Arterial 40 35 - 45 mmHg [facility] PO2, Arterial 304(H) 85 - 104 mmHg [facility] Bicarbonate, Arterial 23.2 20.0 - 26.0 mmol/L [facility] Base Excess, Arterial -1.9 -3.0 - 3.0 mmol/L [facility] Hgb Blood Gas 11.1(L) 13.7 - 16.5 g/dL [facility] Oxyhemoglobin, Arterial 98.6(H) 94.0 - 97.0 % [facility] Carboxyhemoglob in, Arterial 0.3 % [facility] Comment: Nonsmokers: 0.5-1.5% COHB Smokers: Variable, but usually less than 10% Toxic: 20-30% COHB Lethal: Greater than 60% COHB Methemoglobin, Arterial 0.3 <=1.5 % [facility] Na Whole Blood 133(L) 135 - 145 mmol/L [facility] K Whole Blood 6.2(Critic al) 3.5 - 5.0 mmol/L [facility] Comment: Noted by precision instrument and tool maker. Please note: Patients with WBC >100,000 may [...] Graham MD POINT OF CARE TEST ORDERABLES [facility] [place] [address] * (ABNORMAL) BLOOD GAS 2 ARTERIAL (02/17/2024 11:08 AM EDT) pH, Arterial 7.38 7.35 - 7.45 [facility] PCO2, Arterial 38 35 - 45 mmHg [facility] PO2, Arterial 334(H) 85 - 104 mmHg [facility] Bicarbonate, Arterial 22.0 20.0 - 26.0 mmol/L [facility] Base Excess, Arterial -3.2(L) -3.0 - 3.0 mmol/L [facility] Hgb Blood Gas 10.8(L) 13.7 - 16.5 g/dL [facility] Oxyhemoglobin, Arterial 98.7(H) 94.0 - 97.0 % [facility] Carboxyhemoglob in, Arterial 0.3 % [facility] Comment: Nonsmokers: 0.5-1.5% COHB Smokers: Variable, but usually less than 10% Toxic: 20-30% COHB Lethal: Greater than 60% COHB Methemoglobin, Arterial 0.3 <=1.5 % [facility] Na Whole Blood 131(L) 135 - 145 mmol/L [facility] K Whole Blood 6.4(Critic al) 3.5 - 5.0 mmol/L [facility] Comment: Noted by precision instrument and tool maker. Please note: Patients with WBC >100,000 may [...] TEST ORDERABLES Performing Organization Address [facility] Co de Phone Number [facility] [place] [address] * (ABNORMAL) Hemoglobin and Hematocrit, blood (02/17/2024 11:04 AM EDT) Hemoglobin 9.6(L) 13.7 - 16.5 g/dL [facility] [...] ORDERABL ES Performing Organization Address [facility]/ZIP Co de Phone Number [facility] [place] [address] * (ABNORMAL) Platelet count (02/17/2024 11:04 AM EDT) Platelet 106(L) 145 - 357 x10(3)/mc L [facility] Immature Plt % 1.6 0.0 - 7.4 % [facility] Comment: Limitation of the Immature Platelet Fraction (IPF)-May be less reliable when the platelet count is less than 85t503/uL due to statistical imprecision. The IPF value [...] in a decreased state of production. References: [employer] The Clinical Value of the Immature Platelet Fraction (IPF) in Cell Recovery Document Number [id number] 03/2011 [employer] The Role of the Immature Platelet Fraction (IPF) in the Differential Diagnosis of Thrombocytopenia, Document [id number] V002/15/14 Blood 02/17/2024 11:0 4 AM EDT 02/17/2024 11:12 AM EDT Narrative Resulting Agency Comment Spec In Lab Hayder Graham MD HEMATOLOGY ORDERABL ES Performing Organization Address City/State/[facility] Co de Phone Number [facility] [place] [address] * (ABNORMAL) Fibrinogen (02/17/2024 11:04 AM EDT) Fibrinogen 149(L) 200 - 393 mg/dL [facility] [...] Lab Hayder Graham MD HEMATOLOGY ORDERABL ES [facility] [place] [address] * (ABNORMAL) BLOOD GAS 2 ARTERIAL (02/17/2024 10:41 AM EDT) pH, Arterial 7.37 7.35 - 7.45 [facility] PCO2, Arterial 44 35 - 45 mmHg [facility] PO2, Arterial 335(H) 85 - 104 mmHg [facility] Bicarbonate, Arterial 24.9 20.0 - 26.0 mmol/L [facility] Base Excess, Arterial -0.4 -3.0 - 3.0 mmol/L [facility] Hgb Blood Gas 11.5(L) 13.7 - 16.5 g/dL [facility] Oxyhemoglobin, Arterial 98.9(H) 94.0 - 97.0 % [facility] Carboxyhemoglob in, Arterial 0.1 % [facility] Comment: Nonsmokers: 0.5-1.5% COHB Smokers: Variable, but usually less than 10% Toxic: 20-30% COHB Lethal: Greater than 60% COHB Methemoglobin, Arterial 0.3 <=1.5 % [facility] Na Whole Blood 132(L) [...] Graham MD POINT OF CARE TEST ORDERABLES [facility] [place] [address] * (ABNORMAL) BLOOD GAS 2 ARTERIAL (02/17/2024 10:06 AM EDT) pH, Arterial 7.38 7.35 - 7.45 [facility] PCO2, Arterial 42 35 - 45 mmHg [facility] PO2, Arterial 329(H) 85 - 104 mmHg [facility] Bicarbonate, Arterial 24.7 20.0 - 26.0 mmol/L [facility] Base Excess, Arterial -0.3 -3.0 - 3.0 mmol/L [facility] Hgb Blood Gas 11.0(L) 13.7 - 16.5 g/dL [facility] Oxyhemoglobin, Arterial 99.0(H) 94.0 - 97.0 % [facility] Carboxyhemoglob in, Arterial 0.3 % [facility] Comment: Nonsmokers: 0.5-1.5% COHB Smokers: Variable, but usually less than 10% Toxic: 20-30% COHB Lethal: Greater than 60% COHB Methemoglobin, Arterial 0.3 <=1.5 % [facility] Na Whole Blood 132(L) [...] Graham MD POINT OF CARE TEST ORDERABLES [facility] [place] [id number] * Surgical Pathology Report (02/17/2024 10:01 AM EDT) Final Diagnosis [id number] ? Location: [facility]; [facility]; The signing pathologist has (i) examined the relevant preparation(s) for the specimen(s) and (ii) rendered or confirmed the diagnosis(es). . ?Surgical Pathology DIAGNOSIS Aortic valve leaflets, excision: Valve leaflets with myxoid degeneration, nodular fibrosis and dystrophic calcifications. Electronically signed by: ?Livier Montoya MD Verified: ??02/24/2024 13:49 ??Pathologist Performed at: ??-[facility] [place], [place] [address] Manager Web Application: Job Brewer MD, FCAP, ??IA Certificate: [id number] SPECIMEN(S) SUBMITTED A - Aortic Valve Leaflets, [...] Sections Processing Blocks submitted for decalcification: A1. Director Alumni Relations sections in 1 cassette labeled A1. ??ajw 02/24/2024 1:49 PM EDT [facility] AORTIC STRUCTURE / Unknown 02/17/2024 10:01 AM EDT 02/17/2024 10:01 AM EDT Hayder Graham MD PATHOLOGY/CYTOLOGY ORDERABLES [facility] [place] [address] * Specimen to Pathology (02/17/2024 10:01 AM EDT) AP Specimen 02/17/2024 10:0 1 AM EDT 02/17/2024 10:01 AM EDT Narrative [facility] - 02/17/2024 10:01 AM EDT Specimen requisition ordered. ??Separate Pathology report to follow Hayder Graham MD PATHOLOGY/CYTOLOGY ORDERABLES [facility] [place] [address] * (ABNORMAL) BLOOD GAS 2 ARTERIAL (02/17/2024 9:35 AM EDT) pH, Arterial 7.33(L) 7.35 - 7.45 [facility] PCO2, Arterial 35 35 - 45 mmHg [facility] PO2, Arterial 318(H) 85 - 104 mmHg [facility] Bicarbonate, Arterial 17.9(L) 20.0 - 26.0 mmol/L [facility] Base Excess, Arterial -8.0(L) -3.0 - 3.0 mmol/L [facility] Hgb Blood Gas 11.0(L) 13.7 - 16.5 g/dL [facility] Oxyhemoglobin, Arterial 98.8(H) 94.0 - 97.0 % [facility] Carboxyhemoglob in, Arterial 0.3 % [facility] Comment: Nonsmokers: 0.5-1.5% COHB Smokers: Variable, but usually less than 10% Toxic: 20-30% COHB Lethal: Greater than 60% COHB Methemoglobin, Arterial 0.3 <=1.5 % [facility] Na Whole Blood 131(L) [...] Graham MD POINT OF CARE TEST ORDERABLES [facility] [place] [address] * (ABNORMAL) BLOOD GAS 2 VENOUS (02/17/2024 9:34 AM EDT) pH, Venous 7.22(Criti marquez) 7.32 - 7.42 [facility] Comment:Noted by precision instrument and tool maker. PCO2, Venous 43 41 - 51 mmHg [facility] Comment:Noted by precision instrument and tool maker. PO2, Venous 57(H) 25 - 40 mmHg [facility] Comment:Noted by precision instrument and tool maker. Bicarbonate, Venous 17.1 mmol/L [facility] Comment:Noted by precision instrument and tool maker. Base Excess, Venous -10.6 mmol/L [facility] Comment:Noted by precision instrument and tool maker. Hgb Blood Gas 11.2(L) 13.7 - 16.5 g/dL [facility] Comment:Noted by precision instrument and tool maker. Oxyhemoglobin, Venous 86.5 % [facility] Comment:Noted by precision instrument and tool maker. Carboxyhemoglob in, Venous 0.3 % [facility] Comment: Noted by precision instrument and tool maker. Nonsmokers: 0.5-1.5% COHB Smokers: Variable, but usually less than 10% Toxic: 20-30% COHB Lethal: Greater than 60% COHB Methemoglobin, Venous 0.0 <=1.5 % [facility] Comment:Noted by precision instrument and tool maker. Na Whole Blood 156(H) 135 - 145 mmol/L [facility] Comment:Noted by precision instrument and tool maker. K Whole Blood 5.5(H) 3.5 - 5.0 mmol/L [facility] Comment: Noted by precision instrument and tool maker. Please note: Patients with WBC >100,000 may have falsely elevated Potassium levels. Contact the Clinical Chemistry Laboratory if there are any questions. ICa Whole Blood 1.03(L) 1.15 - 1.33 mmol/L [facility] Comment: Noted by precision instrument and tool maker. Note: ??Total bilirubin higher than 20 mg/dL may lead to falsely low ionized calcium. CL Whole Blood 100 98 - 107 mmol/L [facility] Comment:Noted by precision instrument and tool maker. Gluc Whole Bld 132 65 - 199 mg/dL [facility] Comment: Noted by precision instrument and tool maker. Diabetes: >=200 mg/dL plus symptoms Lactate WB 1.0 0.5 - 2.2 mmol/L [facility] Comment:Noted by precision instrument and tool maker. Blood Gas Source Venous [facility] Blood 02/17/2024 9:34 AM EDT 02/17/2024 9:34 AM EDT Hayder Graham MD POINT OF CARE TEST ORDERABLES [facility] [place] [address] * (ABNORMAL) BLOOD GAS 2 ARTERIAL (02/17/2024 8:07 AM EDT) pH, Arterial 7.43 7.35 - 7.45 [facility] PCO2, Arterial 34(L) 35 - 45 mmHg [facility] PO2, Arterial 581(H) 85 - 104 mmHg [facility] Bicarbonate, Arterial 21.7 20.0 - 26.0 mmol/L [facility] Base Excess, Arterial -2.6 -3.0 - 3.0 mmol/L [facility] Hgb Blood Gas 14.5 13.7 - 16.5 g/dL [facility] Oxyhemoglobin, Arterial 99.0(H) 94.0 - 97.0 % [facility] Carboxyhemoglob in, Arterial 0.4 % [facility] Comment: Nonsmokers: 0.5-1.5% COHB Smokers: Variable, but usually less than 10% Toxic: 20-30% COHB Lethal: Greater than 60% COHB Methemoglobin, Arterial 0.3 <=1.5 % [facility] Na Whole Blood 139 [...] TEST ORDERABLES Performing Organization Address [facility] Co de Phone Number [facility] [place] [address] * POCT Glucose (02/17/2024 6:38 AM EDT) Glucose, POC 98 65 - 199 mg/dL [facility] Comment: Supplemental ranges: <140 mg/dL before meals <180 mg/dL all other times of the day Blood 02/17/2024 6:38 AM EDT 02/17/2024 6:38 AM EDT Hayder Graham MD POINT OF CARE TEST ORDERABLES Performing Organization Address [facility] Co de Phone Number [facility] [place] [address] * Transesophageal Echo/OR (02/17/2024 6:33 AM EDT) [...] [facility]-operative [facility] cardiac function [...] Crook RN) 0843 (Given - Provider: Jazlyn aMldonado RN) dorzolamide (Trusopt) 2 % ophthalmic solution [...] Routine documented in this encounter Care Teams Land Management Forester Relationship Specialty Start Date End Date Aparna Jordan APRN PCP - General Family Medicine 10/21/23 documented as of this encounter
--- OUTSIDE RECORDS SUMMARY | 2024-05-22 08:41 | XMS_ITS | Encounter Summary ---
Author Organization [facility] [place] [address] Care Team Providers Care Siebel Developer Name Role Phone Vanessa Christian MAURI Primary Care Provider [phone] Reason for Visit * Auth/Cert (Routine) Specialty [...] ARTERIAL GRAFT (WRVU 7.93) Zak Farmer MD [facility] [place] [address] [facility] Referral ID Status Reason Start Date Expiration Date Visits Re quested Visits Authorized [id number] 1 1 Encounter Details Date Type Department Care Team (Late st Contact Info) Description 02/17/2024 7:35 AM EDT Anesthesia Event Main Operating Room [address] [place] [phone] Roman York MD [facility] [place] [address] Anesthesia Record Procedure Summary Procedure Name Responsible [...] by Sadiq Woo RN PIV 02/17/24; 0715; [id number] catheter system; 18 gauge; cephalic vein (lateral [...] oz pur e alcohol) rare [facility] Utilities Answer Date Recorded In the past 12 months has th e electric, gas, oil, or water [employer] threatened to shut off services in your [...] place to sleep or slept in a mcc (including now)? No 02/18/2024 DH IPV Inpatient [...] Procedure Summary Date: 02/17/24 Room / Location: [facility] [address] [place] [address] MAIN OR Anesthesia Start: 734 Anesthesia Stop: [...] 08/14/2023 ??? Nevus of face 09/26/2023 Right [facility]eterian No past surgical history on file. Social [...] AM EDT Office Visit Cardiology at [address] [place] [address] Neftali Ernandez MD [facility] [address] documented as of this encounter Visit [...] mg documented in this encounter Care Teams Siebel Developer Relationship Specialty Start Date End Date Vanessa Christian APRN PCP - General Family Medicine 10/21/23 documented as of this encounter
--- OUTSIDE RECORDS SUMMARY | 2024-05-22 08:41 | XMS_ITS | Encounter Summary ---
Author Organization [facility] Address [facility] [place] [address] Care Team Providers Care Electrical And Instrumentation Manager Name Role Phone Vanessa Christian PALLIATIVE CARE SPECIALIST Primary Care Provider [phone] Encounter Details Date Type Department Care Team (Late st Contact Info) Description 03/12/2024 2:40 PM EDT Office [place] [phone] Zak Farmer MD [facility] [place] [address] Coronary artery disease, unspecified vessel or lesion type, unspecified whether angina present, unspecified whether [place] or transplanted heart Social History Tobacco Use Types Packs/Day Years Used Date Smoking Tobacco: Former Cigarettes Smokeless Tobacco: Never Comments:Quit 15 + years ago Alcohol Use Standard Drinks/Week Comments Yes 0 (1 standard drink = 0.6 oz pur e alcohol) rare [facility] Utilities Answer Date Recorded In the past 12 months has e [employer], gas, oil, or water [employer] threatened to shut off services in your [...] 2:40 PM EDT To: MD Vanessa Coles, PALLIATIVE CARE SPECIALIST Re; Karlos Santa ( 1960) We had [...] office. Best personal regards, Zak Farmer MD [phone] documented in this encounter Plan of Treatment Upcoming Encounters Date Type Department Care Team (Late st Contact Info) Description 05/27/2024 11:00 AM EDT Office Visit Cardiology at [address] [place] [address] Neftali Ernandez MD [facility] [place] [address] documented as of this encounter Procedures Procedure Name Priority Date/Time Associated Diagnosis Comments EKG 12-LEAD Routine 03/12/2024 2:35 PM EDT Coronary artery disease, unspecified vessel or lesion type, unspecified whether angina present, unspecified whether [place] or transplanted heart documented in this encounter Results * EKG 12 Lead (03/12/2024 2:35 PM EDT) Ventricular rate 59 BPM MUSE SYSTEM Atrial Rate 59 BPM MUSE SYSTEM P-R Interval 190 ms MUSE SYSTEM QRS Duration 92 ms MUSE SYSTEM Q-T Interval 406 ms MUSE SYSTEM QTC Calculated (Bezet) 401 ms MUSE SYSTEM Calculated P [place] -12 degrees MUSE SYSTEM Calculated R [place] 24 degrees MUSE SYSTEM Calculated T [place] 74 degrees MUSE SYSTEM INTERPRETATION Sinus bradycardia T wave abnormality, consider anterior ischemia Abnormal ECG When compared with ECG of 17-FEB-2024 13:24, [place] interval has decreased T wave inversion now evident in Anterior leads Confirmed by Paul Guzman ([id number]) on 03/15/2024 8:36:23 AM MUSE SYSTEM 03/12/2024 2:35 PM EDT 03/15/2024 8:36 AM EDT Zak Farmer MD ECG ORDERABLES MUSE SYSTEM documented in this encounter Visit Diagnoses Diagnosis Coronary artery disease, unspecified vessel or lesion type, unspecified whether angina present, unspecified whether [place] or transplanted heart documented in this encounter Care Teams Electrical And Instrumentation Manager Relationship Specialty Start Date End Date Vanessa Christian, MAURI PCP - General Family Medicine 10/21/23 documented as of this encounter
--- OUTSIDE RECORDS SUMMARY | 2024-05-22 08:41 | XMS_ITS | Encounter Summary ---
[place] [address] Care Team Providers Care Screen Printing Supervisor Name Role Phone Aparna Jordan MAURI Primary Care Provider [phone] Reason for Referral * Diagnostic Test (Routine) - New Request Specialty Diagnoses / Procedures Referred By Contac t Referred To Contact Cardiology Diagnoses S/P AVR Procedures Echocardiogram Transthoracic Neftali Menon PA [facility] [place] [address] [facility] [place] [address] Referral ID Status Reason Start Date Expiration Date Visits Requested Visits Authorized [id number] New Request Specialty Service Requested 02/24/2024 02/23/2025 1 1 * Consultation (Routine) - Authorized Specialty Diagnoses / Procedures Referred By Contac t Referred To Contact Cardiology Diagnoses S/P AVR Zak Graham MD [facility] [place] [address] Cardiac Rehab, [facility] [address] [place] [address] [place] [address] Referral ID Status Reason Start Date Expiration Date Visits Requested Visits Authorized [id number] Authorized Consult, Test & Treat 02/24/2024 08/22/2024 36 36 * Home Health Care (Routine) - Authorized Specialty Diagnoses / Procedures Referred By Sixto mendoza Referred To Contact Diagnoses S/P AVR Zak Graham MD [facility] [place] [address] Referral ID Status Reason Start Date Expiration Date Visits Requested Visits Authorized [id number] Authorized Consult, Test & Treat 02/24/2024 08/22/2024 [...] ARTERIAL GRAFT (WRVU 7.93) Zak Graham MD [facility] [place] [address] [facility] Referral ID Status Reason Start Date Expiration Date Visits Re quested Visits Authorized [id number] 1 1 Encounter Details Date Type Department Care Team (Latest Contact Info) Description 02/17/2024 5:43 AM EDT - 02/24/2024 11:23 AM EDT Hospital Encounter Heart and Vascular Unit Level 4 [place] [address] Zak Graham MD [facility] [place] [address] S/P AVR (Primary Dx); Aortic valve stenosis, [...] Patient Age: 63 y.o. Birthdate: 1960 Language: Malagasy Race: White Ethnicity: Not nor Admit Date: 02/17/2024 Discharge Date: 02/24/24 Attending Physician: Zak Graham MD Follow-up Recommendations for Providers: Please continue routine management of cardiovascular risk factors including blood pressure, lipids,glucose, etc. Please note any changes to medications. Patient to follow up with PCP, Aparna Jordan APRN, in 1-2 weeks. Patient to follow up with Asphalt Surface Heater Operator, Neftali Ernandez MD , in 2 weeks. Patient to follow up with Cardiac Surgeon, Dr. Zak Graham, with a chest x-ray, EKG, and Echo. 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 Right mandaen Past Surgical History: Procedure Laterality Date PRO CABG, ARTERIAL, SINGLE N/A 02/17/2024 @CABG, USING ARTERIAL GRAFT;SINGLE ARTERIAL GRAFT (WRVU 33.75) performed by Zak Graham MD at [facility] MAIN OR PRO CABG, ARTERY-VEIN, TWO N/A 02/17/2024 @CABG, TWO VENOUS GRAFTS & ARTERIAL GRAFT (WRVU 7.93) performed by Zak Graham MD at [facility] MAIN OR PRO ENDOSCOPY W/VIDEO-ASST VEIN HARVEST, CABG Left 02/17/2024 ENDOSCOPIC HARVEST VEIN(S) FOR CABG (WRVU 0.31) performed by Zak Graham MD at [facility] MAIN OR PRO REPLACEMENT PROSTHETIC AORTIC VALVE OPEN W CARDIOPULMONARY BYPASS HOMOGRF/STENT N/A 02/17/2024 @REPLACE AORTIC VALVE, OPEN, W\CPB, W\PROSTHETIC VALVE (WRVU 41.32) performed by Zak Graham MD at [facility] MAIN OR Prior To Admission Medications [...] insufficiency. He has glaucoma. He used to mobifriends until about 15 years ago. He has undergone prior herniorrhaphy. 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 Major Procedures/Operations: 02/17/24 s/p avr/cabgx3 CABG x 3 JOSE->LAD SVG->dRCA SVG->OM1 EVH from LLE AVR with a 23 mm Inspiris Bioprosthesis Hospital Course: Viraj Garcia was admitted to [facility] on 02/17/2024 via the Same Day [...] Zak Graham and/or the Cardiac Surgery Physician Hay Baler Team may be reached at . Antibiotic [...] Please refer to the card with the [place] Heart [employer] Guidelines for more information. You [...] Dr. Zak Graham. You may use a [place] Track or treadmill but avoid any pulling [...] friends, go to a movie, go to holiness, etc. Heavy activities: No hunting, skiing, jogging, [...] should resume a low fat, low cholesterol, [place] Heart Association Diet. Driving: No driving until [...] while being managed by your PCP and/or Asphalt Surface Heater Operator. For future medication refills, please refer to your PCP and/or Asphalt Surface Heater Operator after your discharge from our service. Thank you REMOVE CHEST TUBE SUTURES ON OR AFTER 03/02/24 Home oxygen therapy: N/A Follow up appointments: You should follow up with your PCP, Aparna Jordan APRN, in 1-2 weeks. Our office will schedule an appointment with your Asphalt Surface Heater Operator, Neftali Ernandez MD , in 2 weeks. You have an appointment with your Cardiac Surgeon, Dr. Zak Graham, 4 weeks with a chest x-ray, EKG, and Echo before your appointment. Cardiac Rehabilitation: Viraj Garcia was seen regarding participation in the outpatient Phase 2Cardiac Rehabilitation at [facility]. The patient agrees to a referral to this program. The referral will be sent at discharge and the patient should be contacted by the Program within 1- 2 weeks from discharge. Future Appointments and Orders Future Orders Complete By Expires Echocardiogram Transthoracic [89970 CPT(R)] 03/26/2024 09/25/2024 Process Instructions: Scheduling Instructions: Questions: Where will study be performed?: [facility] Clin[facility] Does the patient have Congenital Heart Disease?: Does patient require sedation?: Sedation rationale: XR Chest PA & Lateral (Generic) [42695 62374 Custom] 03/26/2024 09/25/2024 Process Instructions: Scheduling Instructions: Questions: Portable exam?: Reason for exam and clinical history: s/p avr/cabg Clinical information / jerome questions for radiologist: Stat read required?: Date of injury if applicable: Requested Time: Where will study be performed?: [facility] Radiology Referral to Cardiac Rehab [DID314 Custom] As directed Process Instructions: If no progress note charted, please enter Clinical details in comments. Scheduling Instructions: Questions: My question or request is: s/p AVR/CABG. Cardiac rehab at [facility]. Referral to Home Health [REF34 Custom] As directed Process Instructions: If no progress note charted, please enter Clinical details in comments. Scheduling Instructions: Comments: Please evaluate Viraj Garcia for admission to Home Health. 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 [address] [place] [address] RN orders: Cardiopulmonary assessment, incisional assessment, assess [...] issues please call the Cardiology Office at [phone] FOR MEDICARE ONLY: (please delete this section [...] APRN [address] / [place] [address] . All VNA agencies which cover the area of patient's residence have been reviewed, either verbally or in writing, and patient/family have chosen the home health care agency noted. Questions: Disciplines Requested: Nursing Physical Therapy Arrangements for VNA/home care: As above. Signed: NEFTALI MENON PA-C [facility] Section of Cardiac Surgery [facility] [address] FAX [phone] Date: 02/24/2024 CC: Aparna Jordan, MAURI Jordan, Aparna Sherman APRN [address] [place] [address] documented in this encounter Discharge Instructions * [...] Zak Graham and/or the Cardiac Surgery Physician Hay Baler Team may be reached at . Antibiotic [...] Please refer to the card with the [place] Heart Association Guidelines for more information. You [...] Dr. Zak Graham. You may use a [place] Track or treadmill but avoid any pulling [...] friends, go to a movie, go to holiness, etc. Heavy activities: No hunting, skiing, jogging, [...] should resume a low fat, low cholesterol, [place] Heart Association Diet. Driving: No driving until [...] while being managed by your PCP and/or Asphalt Surface Heater Operator. For future medication refills, please refer to your PCP and/or Asphalt Surface Heater Operator after your discharge from our service. Thank you REMOVE CHEST TUBE SUTURES ON OR AFTER 03/02/24 Home oxygen therapy: N/A Follow up appointments: You should follow up with your PCP, Aparna Jordan APRN, in 1-2 weeks. Our office will schedule an appointment with your Asphalt Surface Heater Operator, Neftali Ernandez MD , in 2 weeks. You have an appointment with your Cardiac Surgeon, Dr. Zak Graham, 4 weeks with a chest x-ray, EKG, and Echo before your appointment. Cardiac Rehabilitation: Viraj Garcia was seen regarding participation in the outpatient Phase 2Cardiac Rehabilitation at [facility]. The patient agrees to a referral [...] 0600 and on the weekends please page [phone]. * Eric Barahona PA - 02/23/2024 9:27 [...] 0600 and on the weekends please page [phone]. * Tiffanie Owens - 02/22/2024 2:48 PM [...] Pt reports his dtr is coming from [place] to stay upon d/c for 10 days. 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 * Kelley Hinson PTA - 02/21/2024 10:15 [...] Pt reports his dtr is coming from [place] to stay upon d/c for 10 days. 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 * Kelley Hinson PTA - 02/20/2024 3:32 [...] at that time Kelley Hinson PTA Pager: [phone] Physical Therapy Inpatient Rehab Department * [place]a [...] 0600 and on the weekends please page [phone]. * Chrystal Benavides, PT - 02/19/2024 11:22 [...] Pt reports his dtr is coming from [place] to stay upon d/c for 10 days. 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 Precautions/Special Considerations: STERNAL [...] outlined inthis evaluation. CHRYSTAL BENAVIDES, PT Pager: [phone] Physical Therapy Inpatient Rehabilitation Department Time IN / OUT: 9531-7904 Total Time: 38 (eval) minutes; * Antonio [...] 0600 and on the weekends please page [phone]. * Minnie Begum PA - 02/18/2024 8:25 [...] site CDI with KEVYN wrap Tubes/Lines/Drains: RIJ/PAC, [place], Med Ctx, L pleural CT, TPW, Naqvi [...] 0600 and on the weekends please page [phone]. * Kim Ha HAZMAT CDL A DRIVER - 02/17/2024 2:25 PM EDT Respiratory Care [...] plan since last visit. Zak Graham MD [phone] Source Note - Zak Graham MD - [...] given written informed consent. Zak Graham MD [phone] * Zak Graham MD - 02/17/2024 7:00 [...] given written informed consent. Zak Graham MD [phone] documented in this encounter Miscellaneous Notes * [...] information for follow-up Home Health & Hospice, [address] [place] [address] Cardiac Rehab, [address] [place] [address] Transportation: family or friend will provide Functional status prior to admission: Independent Home Environment: Others in the home: alone. Current Living Arrangements: home/apartment/condo. Accessibility Concerns:a few steps to enter 1 floor home. Current Functional Ability: Assistive Person and Equipment DME used at home: none DME Needed at Discharge: N/A Patient is insured through: Primary Insurance: [facility] Payor: [facility] / Plan: [facility] PPO / Product Type: *No Product type* [...] managed with scheduled Tylenol. Worked with mobility [employer]. Ambulated in the roque multiple times during [...] anticipated Patient is insured through: Primary Insurance: [facility] Payor: [facility] / Plan: [facility] PPO / Product Type: *No Product type* / Secondary Insurance: N/A Last Physical Therapy Recommendation: home with home health (Str coming to stay for a week or two upon d/c) with to be determined (owns rolling walker, shower seat) Plan for discharge is: Home w/ Services Outpatient Agency/Support Group Needs: Homecare agency Home Health Services: Physical Therapy, Registered Nurse Agency Referrals: [facility] [address] [place] [address] Transportation: family or friend will provide Barriers to discharge: Discharge planning Plan going forward: Service Care Management will continue to follow and assist with discharge planning and coordination of care as indicated. Anticipated Date of Discharge: 02/22/2024 Rhett Bell RN RN/CM - Cellphone: [phone] Pager: [phone] Covering Service RN/CM * Plan of Care [...] Yang RN - 02/19/2024 10:44 AM EDT [facility] CARDIAC REHABILITATION Viraj Garcia was seen today regarding participation in the outpatient Phase 2 Cardiac Rehabilitation at [facility]. The patient agrees to a referral [...] Hypertension 08/14/2023 Nevus of face 09/26/2023 Right mandaen Hospitalizations Within the Past 30 Days: no previous admission in last 30 days Current Decision-Making Capacity: Self If AD's have not been completed the following surrogate would be surrogate decision maker per [place] surrogate decision making law. (Only good for 180 days) Any patient receiving care in [place] must abide by [place] law. The hierarchy for surrogate decision making [...] (i) The agent with financial power of manager benefit or a conservator appointed in accordance with [...] steady place to sleep or slept in [facility] (including now)?: No In the past 12 months has the electric, gas, oil, or water [employer] threatened to shut off services in your [...] Home Address confirmed as: [address] [facility] [address] Physical address: [address] [facility], [address] Social & Family Supports: All names listed [...] Information: none noted Health/Prescription Coverage: Primary Insurance: [facility] Payor: [facility] / Plan: [facility] PPO / Product Type: *No Product type* / Secondary Insurance: N/A ; Prescription Coverage: Yes Preferred Pharmacy: [id number] [address] [place] Status: Patient is a : No Primary Care Provider confirmed: Aparna Jordan, MAURI [phone] Patient/Caregiver Goals of Treatment: dc to home Potential Needs for Transition of Care: home health care Agency Referrals: I have met with the patient to: discuss discharge planning needs. provide the [facility], Office of Care Management letter from the School Director pertaining to rehab referrals. provide a letter describing our affiliations within the [facility] and educate about their right to choose where referrals are sent. provide a list of Home Health Agencies / Durable Medical Equipment vendors which serve their preferred geographic area. provided patient with [facility] Star Quality Rating handout. They have requested referrals to: [facility] [address] [place] [address] Note routed to a Wind Turbine Engineer who will communicate referrals to facilities [...] daughter, Cielo, will be coming in from [place] on 02/18, to stay with him , [...] Reina Greene RN CM, BSN, CMGT-BC Ext [phone] * Plan of Care - Binta Trinidad [...] Operative Note Patient Name: Viraj Garcia : [id number] MR#: [id number] Case Date: 02/17/2024 Surgeon: Surgeon(s) and Role: * Zak Graham MD - Primary * Neftali Menon PA - Physician Hay Baler Preoperative diagnosis: CAD Postoperative diagnosis: CAD, intraoperative [...] mL Drains: Mediastinal and Left pleural Disposition: [facility] Condition: doing well without problems Attestation: Case Date: 02/17/2024 I performed this procedure without the involvement of a resident. ZAK GRAHAM MD 02/17/2024 * Op Note - Zak Graham MD - 02/17/2024 8:20 AM EDT [facility] Operative Note Patient Name: Viraj Garcia : [id number] MR#: [id number] Case Date: 02/17/2024 Surgeon: Surgeons and Role: * Zak Graham MD - Primary * Neftali Menon PA - Physician Hay Baler Preoperative diagnosis: CAD Postoperative diagnosis: CAD, intraoperative [...] mL Drains: Mediastinal and Left pleural Disposition: [facility] Procedure Description: The patient was brought [...] 11:00 AM EDT Office Visit Cardiology at [address] [id number] Neftali Ernandez MD [facility] [place] [address] Scheduled Orders Name Type Priority Associated Diagnoses [...] Aortic Valve Open W Cardiopulmonary Bypass Homogrf/Stent (11279) Yes 02/17/2024 7:28 AM EDT CAD Cabg, Artery-Vein, Two (90462) Yes 02/17/2024 7:28 AM EDT CAD Cabg, Arterial, Single (08311) Yes 02/17/2024 7:28 AM EDT CAD Endoscopy W/Video-Asst Vein [place], Cabg (86796) Yes 02/17/2024 7:28 AM EDT CAD POCT GLUCOSE Routine 02/17/2024 6:38 AM EDT TRANSESOPHAGEAL ECHOCARDIOGRAM IN THE OR Routine 02/17/2024 6:33 AM EDT Aortic valve stenosis, etiology of cardiac valve disease unspecified LAB SCAN 02/17/2024 12:00 AM EDT IMPLANTABLE DEVICES SCAN 02/17/2024 12:00 AM EDT documented in this encounter Results * Potassium (02/24/2024 4:42 AM EDT) Potassium 4.0 3.5 - 5.0 mmol/L [place] [...] Lab Zak Graham MD CHEMISTRY ORDERABLE S [facility] [place] [address] * (ABNORMAL) Basic Metabolic Panel (non-fasting) (02/23/2024 4:24 AM EDT) Glucose 117 65 - 199 mg/dL [place] [...] MD CHEMISTRY ORDERABLES [facility] [place] [address] * Potassium (02/22/2024 4:30 AM EDT) Potassium 3.5 3.5 - 5.0 mmol/L [facility] [...] Lab Zak Graham MD CHEMISTRY ORDERABLE S [facility] [place] [address] * (ABNORMAL) Basic Metabolic Panel (non-fasting) (02/21/2024 9:45 AM EDT) Glucose 123 65 - 199 mg/dL [facility] Comment:Diabetes: >=200 mg/d L plus symptoms Blood Urea Nitrogen 22(H) 10 - 20 mg/dL [facility] Creatinine 0.78(L) 0.80 - 1.50 mg/dL [facility] Sodium 140 135 - 145 mmol/L [facility] Potassium 3.9 3.5 - 5.0 mmol/L [facility] Comment: Please note: ??Patients with WBC >100,000 may have falsely elevated Potassium levels. ??For accurate Potassium quantification in these patients send serum separator tube (gold top) for subsequent determinations. ??Contact the Clinical Chemistry Laboratory if there are any questions. Chloride 100 98 - 107 mmol/L [facility] Carbon Dioxide Not Perf 22 - 31 [facility] Comment:Add-on request. Yolanda le too old to perform test. Anion Gap Unable to Calculate 5 - 15 mmol/L [facility] Calcium 8.6 8.5 - 10.5 mg/dL [facility] Est Glomerular Filtration Rate 100 >=60 mL/min/1 .73 m?? [facility] Comment: This [...] Carpio MD CHEMISTRY ORDERABLES Performing Organization Address City/[facility]/ZIP Co de Phone Number [facility] [place] [address] * Lactate, whole blood, send to lab ([facility]) (02/21/2024 9:45 AM EDT) [facility] Lactate WB 2.0 0.5 - 2.2 mmol/L [facility] Blood 02/21/2024 9:45 AM EDT 02/21/2024 9:52 AM EDT Narrative Resulting Agency Comment Spec In Lab Zak Graham MD CHEMISTRY ORDERABLE S Performing Organization Address [facility] Co de Phone Number [facility] [place] [address] * (ABNORMAL) Hepatic Function Panel (02/21/2024 9:45 AM EDT) [facility] Protein, Total 5.7(L) 6.1 - 8.0 g/dL [...] Lab Zak Graham MD CHEMISTRY ORDERABLE S [facility] [place] [address] * Lipase (02/21/2024 9:45 AM EDT) Lipase 56 0 - 60 unit/L [facility] Blood 02/21/2024 9:45 AM EDT 02/21/2024 9:52 AM EDT Narrative Resulting Agency Comment Spec In Lab Zak Graham MD CHEMISTRY ORDERABLE S [facility] [place] [address] * Amylase (02/21/2024 9:45 AM EDT) Amylase 69 28 - 100 unit/L [facility] Blood 02/21/2024 9:45 AM EDT 02/21/2024 9:52 AM EDT Narrative Resulting Agency Comment Spec In Lab Zak Graham MD CHEMISTRY ORDERABLE S Performing Organization Address [facility]/ZIP Co de Phone Number [facility] [place] [address] * Potassium (02/21/2024 3:08 AM EDT) Potassium 3.8 3.5 - 5.0 mmol/L [facility] [...] Lab Zak Graham MD CHEMISTRY ORDERABLE S [facility] [place] [address] * XR Chest PA & Lateral (Generic) (02/20/2024 10:19 AM EDT) WORKSTATION ID [id number] RAD Anatomical Region Laterality Modality Chest N/A Digital Radiogra phy Impressions 02/20/2024 1:11 PM EDT Small pleural effusions. No pneumothorax Thank you for letting us participate in the care of this patient. ??If you are a health care provider and have any questions regarding this report, please contact the number below. ??For patients who have questions please contact the health manager of care that requested your imaging first. ? Narrative 02/20/2024 1:11 PM EDT EXAMINATION: XR CHEST PA AND LATERAL (GENERIC) CLINICAL HISTORY: s/p AVR/CABGx3 TECHNIQUE: PA and lateral views of the chest COMPARISON: 02/17/2024 FINDINGS: Support devices: Interval removal of [place] catheter, endotracheal tube and mediastinal chest tubes The cardiac silhouette is stable status post median sternotomy, CABG and aortic valve replacement. There are small pleural effusions. No pneumothorax. Procedure Note Rogerio Cruz MD - 02/20/2024 EXAMINATION: XR CHEST PA AND LATERAL (GENERIC) CLINICAL HISTORY: s/p AVR/CABGx3 TECHNIQUE: PA and lateral views of the chest COMPARISON: 02/17/2024 FINDINGS: Support devices: Interval removal of [place] catheter, endotracheal tubeand mediastinal chest tubes The [...] who have questions please contactthe health manager of care that requested your imaging first. Zak Graham MD IMG DX ORDERABLES * Scan, Peripheral Blood (02/20/2024 4:23 AM EDT) Pathologist [facility] Plat estimate Decreased [facility] RBC Morphology Normal [facility] Blood 02/20/2024 4:23 AM EDT 02/20/2024 4:42 AM EDT Narrative Resulting Agency Comment Spec In Lab Minnie FRENCH HEMATOLOGY CECILIO ALEMAN [facility] [place] [address] * (ABNORMAL) Differential, Automated (02/20/2024 4:23 AM EDT) [facility] Neutrophil % 81.7 % [facility] Neutrophil Absolute 10.37(H) 1.70 - 6.10 x10(3)/mc L [facility] Lymph % 7.4 % [facility] Lymphocytes Abs 0.9 0.9 - 3.2 x10(3)/mc L [facility] Monocyte % 9.7 % [facility] Monocyte Abs 1.2(H) 0.3 - 0.9 x10(3)/mc L [facility] Eos % 0.1 % [facility] Eosinophils Abs 0.0 0.0 - 0.4 x10(3)/mc L [facility] Basophil % 0.2 % [facility] Baso Absolute 0.0 0.0 - 0.1 x10(3)/mc L [facility] Immature Gran % 0.90 % [facility] Comment: Immature granulocytes(IG's)percentage and absolute count will include metamyelocytes, myelocytes, and promyelocytes. Blood smears from CBCs yielding IG's will be scanned manually for concordance. If this scan disagrees with the automated IG or if promyelocytes are noted, a manual differential will be performed. Immature Gran Absolute 0.12(H) 0.00 - 0.04 x10(3)/ L [facility] Blood 02/20/2024 4:23 AM EDT 02/20/2024 4:42 AM EDT Narrative Resulting Agency Comment Spec In Lab Minnie FRENCH HEMATOLOGY CECILIO ALEMAN [facility] [place] [address] * (ABNORMAL) Hemogram (02/20/2024 4:23 AM EDT) White Blood Cell 12.7(H) 4.0 - 9.5 x10(3)/ L [facility] Red Blood [...] Platelet 88(L) 145 - 357 x10(3)/ L [facility] RDW Standard Deviation 43.5 36.0 - 45.0 fL [facility] RDW coefficient of variation 13.7 11.4 - 13.8 % [facility] Mean Platelet Volume 10.2 7.6 - 12.9 fL [facility] NRBC% auto 0.0 % [facility] NRBC Absolute 0.000 0.000 - 0.000 x10(3)/mc L [facility] Blood 02/20/2024 4:23 AM EDT 02/20/2024 4:42 AM EDT Narrative Resulting Agency Comment Spec In Lab Minnie FRENCH HEMATOLOGY ORDE ASH [facility] [place] [address] * (ABNORMAL) Basic Metabolic Panel (non-fasting) (02/20/2024 4:23 AM EDT) Glucose 113 65 - 199 mg/dL [facility] Comment:Diabetes: >=200 mg/d L plus symptoms Blood Urea Nitrogen 20 10 - 20 mg/dL [facility] Comment:result rechecked-KS Creatinine 0.71(L) 0.80 - 1.50 mg/dL [facility] Sodium 135 135 - 145 mmol/L [facility] Potassium 3.9 3.5 - 5.0 mmol/L [facility] Comment: Please note: ??Patients with WBC >100,000 may have falsely elevated Potassium levels. ??For accurate Potassium quantification in these patients send serum separator tube (gold top) for subsequent determinations. ??Contact the Clinical Chemistry Laboratory if there are any questions. Chloride 102 98 - 107 mmol/L [facility] Carbon Dioxide 25 22 - 31 mmol/L [facility] Anion Gap 8 5 - 15 mmol/L [facility] Calcium 8.7 8.5 - 10.5 mg/dL [facility] Comment:result rechecked-KS Est Glomerular [...] Organization Address [facility] Co de Phone Number [facility] [place] [address] * Potassium (02/19/2024 3:57 AM EDT) Potassium 4.3 3.5 - 5.0 mmol/L [facility] [...] Organization Address [facility] Co de Phone Number [facility] [place] [address] * POCT Glucose (02/18/2024 8:24 AM EDT) Glucose, POC 157 65 - 199 mg/dL [facility] Comment: Supplemental ranges: <140 mg/dL before meals <180 mg/dL all other times of the day Blood 02/18/2024 8:24 AM EDT 02/18/2024 8:24 AM EDT Zak Graham MD POINT OF CARE TEST ORDERABLES [facility] [place] [address] * Scan, Peripheral Blood (02/18/2024 1:40 AM EDT) Plat estimate Decreased [facility] RBC Morphology Normal [facility] Blood 02/18/2024 1:40 AM EDT 02/18/2024 1:56 AM EDT Narrative Resulting Agency Comment Spec In Lab Neftali FRENCH HEMATOLOGY ORDER OLE Performing Organization Address City/[facility]/ZIP Co de Phone Number [facility] [place] [address] * (ABNORMAL) Differential, Automated (02/18/2024 1:40 AM EDT) [facility] Neutrophil % 87.1 % [facility] Neutrophil Absolute 15.03(H) 1.70 - 6.10 x10(3)/mc L [facility] Lymph % 3.0 % [facility] Lymphocytes Abs 0.5(L) 0.9 - 3.2 x10(3)/mc L [facility] Monocyte % 9.1 % [facility] Monocyte Abs 1.6(H) 0.3 - 0.9 x10(3)/mc L [facility] Eos % 0.0 % [facility] Eosinophils Abs 0.0 0.0 - 0.4 x10(3)/mc L [facility] Basophil % 0.2 % [facility] Baso Absolute 0.0 0.0 - 0.1 x10(3)/mc L [facility] Immature Gran % 0.60 % [facility] Comment: Immature granulocytes(IG's)percentage and absolute count will include metamyelocytes, myelocytes, and promyelocytes. Blood smears from CBCs yielding IG's will be scanned manually for concordance. If this scan disagrees with the automated IG or if promyelocytes are noted, a manual differential will be performed. Immature Gran Absolute 0.10(H) 0.00 - 0.04 x10(3)/mc L [facility] Blood 02/18/2024 1:40 AM EDT 02/18/2024 1:56 AM EDT Narrative Resulting Agency Comment Spec In Lab Neftali FRENCH HEMATOLOGY ORDER OLE [facility] [place] [address] * (ABNORMAL) Hemogram (02/18/2024 1:40 AM EDT) White Blood Cell 17.2(H) 4.0 - 9.5 x10(3)/mc L [facility] Red Blood Cell 4.71 4.58 - 5.54 x10(6)/mc L [facility] Hemoglobin 13.7 13.7 - 16.5 g/dL [facility] Hematocrit 39.2(L) 40.5 - 48.5 % [facility] Mean Cell Volume 83.2 82.9 - 93.1 fL [facility] Mean Cell Hemoglobin 29.1 27.5 - 32.1 pg [facility] Mean Cell Hemoglobin Concentration 34.9 32.0 - 35.7 g/dL [facility] Platelet 147 145 - 357 x10(3)/mc L [facility] RDW Standard Deviation 39.9 36.0 - 45.0 [facility] RDW coefficient of variation 13.2 11.4 - 13.8 % [facility] Mean Platelet Volume 9.9 7.6 - 12.9 [facility] NRBC% auto 0.0 % [facility] NRBC Absolute 0.000 0.000 - 0.000 x10(3)/mc L [facility] Blood 02/18/2024 1:40 AM EDT 02/18/2024 1:56 AM EDT Narrative Resulting Agency Comment Spec In Lab Neftali FRENCH HEMATOLOGY ORDER OLE [facility] [place] [address] * (ABNORMAL) Basic Metabolic Panel (non-fasting) (02/18/2024 1:40 AM EDT) Glucose 176 65 - 199 mg/dL [facility] Comment:Diabetes: >=200 mg/d L plus symptoms Blood Urea Nitrogen 10 10 - 20 mg/dL [facility] Creatinine 0.65(L) 0.80 - 1.50 mg/dL [facility] Sodium 135 135 - 145 mmol/L [facility] Potassium 4.2 3.5 - 5.0 mmol/L [facility] Comment: Please note: ??Patients with WBC >100,000 may have falsely elevated Potassium levels. ??For accurate Potassium quantification in these patients send serum separator tube (gold top) for subsequent determinations. ??Contact the Clinical Chemistry Laboratory if there are any questions. Chloride 106 98 - 107 mmol/L [facility] Carbon Dioxide 20(L) 22 - 31 mmol/L [facility] Anion Gap 9 5 - 15 mmol/L [facility] Calcium 7.6(L) 8.5 - 10.5 mg/dL [facility] Est Glomerular Filtration Rate 105 >=60 mL/min/1. 73 m?? [facility] [...] Lab Zak Graham MD CHEMISTRY ORDERABLE S [facility] [place] [address] * (ABNORMAL) Troponin (02/18/2024 1:40 AM EDT) [...] troponin value can be found in the [facility] Test Catalog Troponin - [facility] Test Catalog Reference: Fourth [place] Definition of Myocardial Infarction. Journal of the [place] [employer] 2018;72:9468-1052 Blood 02/18/2024 1:40 AM EDT 02/18/2024 1:56 AM EDT Narrative Resulting Agency Comment Spec In Lab Zak Graham MD CHEMISTRY ORDERABLE S Performing Organization Address [facility] Co de Phone Number [facility] [place] [address] * POCT Glucose (02/17/2024 8:13 PM EDT) Glucose, POC 142 65 - 199 mg/dL [facility] Comment: Supplemental ranges: <140 mg/dL before meals <180 mg/dL all other times of the day Blood 02/17/2024 8:13 PM EDT 02/17/2024 8:13 PM EDT Zak Graham MD POINT OF CARE TEST ORDERABLES Performing Organization Address [facility] Co de Phone Number [facility] [place] [address] * POCT Glucose (02/17/2024 5:42 PM EDT) Glucose, POC 160 65 - 199 mg/dL [facility] Comment: Supplemental ranges: <140 mg/dL before meals <180 mg/dL all other times of the day Blood 02/17/2024 5:42 PM EDT 02/17/2024 5:42 PM EDT Zak Graham MD POINT OF CARE TEST ORDERABLES Performing Organization Address [facility] Co de Phone Number [facility] [place] [address] * Hemoglobin (02/17/2024 5:42 PM EDT) Hemoglobin 13.7 13.7 - 16.5 g/dL [facility] Blood 02/17/2024 5:42 PM EDT 02/17/2024 6:10 PM EDT Narrative Resulting Agency Comment Spec In Lab Zak Graham MD HEMATOLOGY ORDERABL ES Performing Organization Address [facility]/ZIP Co de Phone Number [facility] [place] [address] * Potassium (02/17/2024 5:42 PM EDT) Pathologist [facility] Potassium 4.3 3.5 - 5.0 mmol/L [facility] [...] Organization Address [facility] Co de Phone Number [facility] [place] [address] * (ABNORMAL) BLOOD GAS 2 ARTERIAL (02/17/2024 4:18 PM EDT) pH, Arterial 7.34(L) 7.35 - 7.45 [facility] PCO2, Arterial 40 35 - 45 mmHg [facility] PO2, Arterial 78(L) 85 - 104 mmHg [facility] Bicarbonate, Arterial 20.8 20.0 - 26.0 mmol/L [facility] Base Excess, Arterial -5.1(L) -3.0 - 3.0 mmol/L [facility] Hgb Blood Gas 14.6 13.7 - 16.5 g/dL [facility] Oxyhemoglobin, Arterial 93.0(L) 94.0 - 97.0 % [facility] Carboxyhemoglob in, Arterial 0.3 % [facility] Comment: Nonsmokers: 0.5-1.5% COHB Smokers: Variable, but usually less than 10% Toxic: 20-30% COHB Lethal: Greater than 60% COHB Methemoglobin, Arterial 0.8 <=1.5 % [facility] Na Whole Blood 136 135 - 145 mmol/L [facility] K Whole Blood 4.1 3.5 - 5.0 mmol/L [facility] Comment: Please note: Patients with WBC >100,000 may have falsely elevated Potassium levels. Contact the Clinical Chemistry Laboratory if there are any questions. ICa Whole Blood 1.10(L) 1.15 - 1.33 mmol/L [facility] Comment: Note: ??Total bilirubin higher than 20 mg/dL may lead to falsely low ionized calcium. CL Whole Blood 105 98 - 107 mmol/L [facility] Gluc Whole Bld 159 65 - 199 mg/dL [facility] Comment:Diabetes: >=200 mg/d L plus symptoms. Lactate WB 1.2 0.5 - 2.2 mmol/L [facility] FIO2 Art 40 % [facility] PF Ratio Art 195 [facility] Blood 02/17/2024 4:18 PM EDT 02/17/2024 4:18 PM EDT Zak Graham MD POINT OF CARE TEST ORDERABLES Performing Organization Address City/State/[facility] Co de Phone Number [facility] [place] [address] * XR Chest One View (02/17/2024 1:44 PM EDT) [employer] WORKSTATION ID [id number] RAD Anatomical Region Laterality Modality Chest N/A Digital Radiogra phy Impressions 02/17/2024 2:12 PM EDT 1. ??No definite pleural fluid collection or pneumothorax. 2. ??Right IJ [place] catheter tip terminates in a descending branch [...] have questions please contact the health manager of care that requested your imaging first. ? Electronically signed by: Denzel Hankins MD, [facility] ??([phone]), at 02/17/2024 2:12 PM Narrative 02/17/2024 2:12 PM EDT EXAMINATION: XR CHEST ONE VIEW CLINICAL HISTORY: s/p avr/cabg eval effusions TECHNIQUE: 1 view of the chest COMPARISON: Chest x-ray 01/09/2024, chest CT 02/03/2024 FINDINGS: ET tube tip terminates 5.2 cm above the carlos. Right IJ [place] catheter tip terminates in a descending branch [...] 5.2 cm above the carlos. Right IJ [place]anzcatheter tip terminates in a descending branch of [...] fluid collection or pneumothorax. 2. Right IJ [place] catheter tip terminates in a descending branch ofthe right pulmonary artery. Suggest catheter retraction. 3. Additional support lines and tubes as above. Thank you for letting us participate in the care of this patient. If youare a health care provider and have any questions regarding this report,please contact the number below. For patients who have questions please contactthe health manager of care that requested your imaging first. Zak Graham MD IMG DX ORDERABLES * (ABNORMAL) BLOOD GAS 2 ARTERIAL (02/17/2024 1:31 PM EDT) pH, Arterial 7.35 7.35 - 7.45 [facility] PCO2, Arterial 39 35 - 45 mmHg [facility] PO2, Arterial 320(H) 85 - 104 mmHg [facility] Bicarbonate, Arterial 21.4 20.0 - 26.0 mmol/L [facility] Base Excess, Arterial -4.2(L) -3.0 - 3.0 mmol/L [facility] Hgb Blood Gas 14.1 13.7 - 16.5 g/dL [facility] Oxyhemoglobin, Arterial 97.9(H) 94.0 - 97.0 % [facility] Carboxyhemoglob in, Arterial 0.3 % [facility] Comment: Nonsmokers: 0.5-1.5% COHB Smokers: Variable, but usually less than 10% Toxic: 20-30% COHB Lethal: Greater than 60% COHB Methemoglobin, Arterial 0.7 <=1.5 % [facility] Na Whole Blood 137 135 - 145 mmol/L [facility] K Whole Blood 4.2 3.5 - 5.0 mmol/L [facility] Comment: Please note: Patients with WBC >100,000 may have falsely elevated Potassium levels. Contact the Clinical Chemistry Laboratory if there are any questions. ICa Whole Blood 1.13(L) 1.15 - 1.33 mmol/L [facility] Comment: Note: ??Total bilirubin higher than 20 mg/dL may lead to falsely low ionized calcium. CL Whole Blood 108(H) 98 - 107 mmol/L [facility] Gluc Whole Bld 136 65 - 199 mg/dL [facility] Comment:Diabetes: >=200 mg/d L plus symptoms. Lactate WB 1.1 0.5 - 2.2 mmol/L [facility] FIO2 Art 100 % [facility] PF Ratio Art 320 [facility] Blood 02/17/2024 1:31 PM EDT 02/17/2024 1:31 PM EDT Zak Graham MD POINT OF CARE TEST ORDERABLES [facility] [place] [address] * (ABNORMAL) Coox2 (02/17/2024 1:21 PM EDT) pO2, Coox 44 mmHg [facility] Hgb Blood Gas 13.1(L) 13.7 - 16.5 g/dL [facility] Oxyhemoglobin, Coox 76.4 % [facility] Carboxyhemoglo bin, Coox 0.3 % [facility] Comment: Nonsmokers: 0.5-1.5% COHB Smokers: Variable, but usually less than 10% Toxic: 20-30% COHB Lethal: Greater than 60% COHB Methemoglobin, Coox 0.8 <=1.5 % [facility] Source Coox Mixed Venous [facility] Blood 02/17/2024 1:21 PM EDT 02/17/2024 1:21 PM EDT Zak Graham MD POINT OF CARE TEST ORDERABLES [facility] [place] [address] * (ABNORMAL) BLOOD GAS 2 ARTERIAL (02/17/2024 12:14 PM EDT) pH, Arterial 7.39 7.35 - 7.45 [facility] PCO2, Arterial 40 35 - 45 mmHg [facility] PO2, Arterial 338(H) 85 - 104 mmHg [facility] Bicarbonate, Arterial 23.7 20.0 - 26.0 mmol/L [facility] Base Excess, Arterial -1.3 -3.0 - 3.0 mmol/L [facility] Hgb Blood Gas 11.0(L) 13.7 - 16.5 g/dL [facility] Oxyhemoglobin, Arterial 98.8(H) 94.0 - 97.0 % [facility] Carboxyhemoglob in, Arterial 0.3 % [facility] Comment: Nonsmokers: 0.5-1.5% COHB Smokers: Variable, but usually less than 10% Toxic: 20-30% COHB Lethal: Greater than 60% COHB Methemoglobin, Arterial 0.3 <=1.5 % [facility] Na Whole Blood 135 135 - 145 mmol/L [facility] K Whole Blood 5.1(H) 3.5 - 5.0 mmol/L [facility] Comment: Please note: Patients with WBC >100,000 may have falsely elevated Potassium levels. Contact the Clinical Chemistry Laboratory if there are any questions. ICa Whole Blood 1.13(L) 1.15 - 1.33 mmol/L [facility] Comment: Note: ??Total bilirubin higher than 20 mg/dL may lead to falsely low ionized calcium. CL Whole Blood 106 98 - 107 mmol/L [facility] Gluc Whole Bld 132 65 - 199 mg/dL [facility] Comment:Diabetes: >=200 mg/d L plus symptoms. Lactate WB 1.4 0.5 - 2.2 mmol/L [facility] Blood 02/17/2024 12:1 4 PM EDT 02/17/2024 12:14 PM EDT Zak Graham MD POINT OF CARE TEST ORDERABLES Performing Organization Address [facility] Co de Phone Number [facility] [place] [address] * (ABNORMAL) Fibrinogen (02/17/2024 12:10 PM EDT) Fibrinogen 154(L) 200 - 393 mg/dL [facility] Comment: OR Result called [...] ORDERABLE S Performing Organization Address [facility] de Phone Number [facility] [place] [address] * (ABNORMAL) Thrombin time (02/17/2024 12:10 PM EDT) Thrombin Time 18(H) 10 - 17 sec [facility] Comment: OR Result called [...] Organization Address [facility]/ZIP Co de Phone Number [facility] [place] [address] * APTT (02/17/2024 12:10 PM EDT) Partial Thromboplastin Time 33 25 - 37 sec [facility] Comment: OR Result called [...] MD HEMATOLOGY ORDERABLE S Performing Organization Address City/[facility]/ZIP Co de Phone Number [facility] [place] [address] * (ABNORMAL) Prothrombin Time (02/17/2024 12:10 PM EDT) Prothrombin Time 16.7(H) 9.4 - 12.5 sec [facility] Comment: OR Result called by ?? LOMARL OR Results read back by: ? silvia pagan at 2024-02-17 12:41:48 International Normalization Ratio 1.5 [facility] Comment: OR Result called [...] Lab Tara York MD HEMATOLOGY ORDERABLE S [facility] [place] [address] * (ABNORMAL) Hemogram (02/17/2024 12:10 PM EDT) White Blood Cell 11.1(H) 4.0 - 9.5 x10(3)/mc L [facility] Red Blood Cell 3.50(L) 4.58 - 5.54 x10(6)/mc L [facility] Hemoglobin 10.4(L) 13.7 - 16.5 g/dL [facility] Hematocrit 30.2(L) 40.5 - 48.5 % [facility] Comment: This result has been called to SILVIA PAGAN by Eddie López on 02 17 2024 at 1226, and has been read back. Mean Cell Volume 86.3 82.9 - 93.1 fL [facility] Mean Cell Hemoglobin 29.7 27.5 - 32.1 pg [facility] Mean Cell Hemoglobin Concentration 34.4 32.0 - 35.7 g/dL [facility] Platelet 118(L) 145 - 357 x10(3)/mc L [facility] RDW Standard Deviation 40.2 36.0 - 45.0 fL [facility] RDW coefficient of variation 12.8 11.4 - 13.8 % [facility] Mean Platelet Volume 9.5 7.6 - 12.9 fL [facility] NRBC% auto 0.0 % [facility] NRBC Absolute 0.000 0.000 - 0.000 x10(3)/mc L [facility] Blood 02/17/2024 12:1 0 PM EDT 02/17/2024 12:19 PM EDT Narrative Resulting Agency Comment Spec In Lab Tara York MD HEMATOLOGY ORDERABLE S [facility] [address] [place] [address] * (ABNORMAL) BLOOD GAS 2 ARTERIAL (02/17/2024 11:43 AM EDT) pH, Arterial 7.38 7.35 - 7.45 [facility] PCO2, Arterial 40 35 - 45 mmHg [facility] PO2, Arterial 304(H) 85 - 104 mmHg [facility] Bicarbonate, Arterial 23.2 20.0 - 26.0 mmol/L [facility] Base Excess, Arterial -1.9 -3.0 - 3.0 mmol/L [facility] Hgb Blood Gas 11.1(L) 13.7 - 16.5 g/dL [facility] Oxyhemoglobin, Arterial 98.6(H) 94.0 - 97.0 % [facility] Carboxyhemoglob in, Arterial 0.3 % [facility] Comment: Nonsmokers: 0.5-1.5% COHB Smokers: Variable, but usually less than 10% Toxic: 20-30% COHB Lethal: Greater than 60% COHB Methemoglobin, Arterial 0.3 <=1.5 % [facility] Na Whole Blood 133(L) 135 - 145 mmol/L [facility] K Whole Blood 6.2(Critic al) 3.5 - 5.0 mmol/L [facility] Comment: Noted by musical instrument supervisor. Please note: Patients with WBC >100,000 may have falsely elevated Potassium levels. Contact the Clinical Chemistry Laboratory if there are any questions. ICa Whole Blood 0.97(L) 1.15 - 1.33 mmol/L [facility] Comment: Note: ??Total bilirubin higher than 20 mg/dL may lead to falsely low ionized calcium. CL Whole Blood 104 98 - 107 mmol/L [facility] Gluc Whole Bld 128 65 - 199 mg/dL [facility] Comment:Diabetes: >=200 mg/d L plus symptoms. Lactate WB 1.1 0.5 - 2.2 mmol/L [facility] Blood 02/17/2024 11:4 3 AM EDT 02/17/2024 11:43 AM EDT Zak Graham MD POINT OF CARE TEST ORDERABLES [facility] [place] [address] * (ABNORMAL) BLOOD GAS 2 ARTERIAL (02/17/2024 11:08 AM EDT) pH, Arterial 7.38 7.35 - 7.45 [facility] PCO2, Arterial 38 35 - 45 mmHg [facility] PO2, Arterial 334(H) 85 - 104 mmHg [facility] Bicarbonate, Arterial 22.0 20.0 - 26.0 mmol/L [facility] Base Excess, Arterial -3.2(L) -3.0 - 3.0 mmol/L [facility] Hgb Blood Gas 10.8(L) 13.7 - 16.5 g/dL [facility] Oxyhemoglobin, Arterial 98.7(H) 94.0 - 97.0 % [facility] Carboxyhemoglob in, Arterial 0.3 % [facility] Comment: Nonsmokers: 0.5-1.5% COHB Smokers: Variable, but usually less than 10% Toxic: 20-30% COHB Lethal: Greater than 60% COHB Methemoglobin, Arterial 0.3 <=1.5 % [facility] Na Whole Blood 131(L) 135 - 145 mmol/L [facility] K Whole Blood 6.4(Critic al) 3.5 - 5.0 mmol/L [facility] Comment: Noted by musical instrument supervisor. Please note: Patients with WBC >100,000 may have falsely elevated Potassium levels. Contact the Clinical Chemistry Laboratory if there are any questions. ICa Whole Blood 0.98(L) 1.15 - 1.33 mmol/L [facility] Comment: Note: ??Total bilirubin higher than 20 mg/dL may lead to falsely low ionized calcium. CL Whole Blood 104 98 - 107 mmol/L [facility] Gluc Whole Bld 127 65 - 199 mg/dL [facility] Comment:Diabetes: >=200 mg/d L plus symptoms. Lactate WB 1.0 0.5 - 2.2 mmol/L [facility] Blood 02/17/2024 11:0 8 AM EDT 02/17/2024 11:08 AM EDT Zak Graham MD POINT OF CARE TEST ORDERABLES Performing Organization Address [facility] Co de Phone Number [facility] [place] [address] * (ABNORMAL) Hemoglobin and Hematocrit, blood (02/17/2024 11:04 AM EDT) Pathologist [facility] Hemoglobin 9.6(L) 13.7 - 16.5 g/dL [facility] Hematocrit 28.0(L) 40.5 - 48.5 % [facility] Comment: This result has been called to SILVIA PAGAN by Eddie López on 02 17 2024 at 1120, and has been read back. Blood 02/17/2024 11:0 4 AM EDT 02/17/2024 11:12 AM EDT Narrative Resulting Agency Comment Spec In Lab Zak Graham MD HEMATOLOGY ORDERABL ES Performing Organization Address [facility]/ZIP Co de Phone Number [facility] [place] [address] * (ABNORMAL) Platelet count (02/17/2024 11:04 AM EDT) Platelet 106(L) 145 - 357 x10(3)/mc L [facility] Immature Plt % 1.6 0.0 - 7.4 % [facility] Comment: Limitation of the Immature Platelet Fraction (IPF)-May be less reliable when the platelet count is less than 44t649/uL due to statistical imprecision. The IPF value [...] in a decreased state of production. References: [employer] The Clinical Value of the Immature Platelet Fraction (IPF) in Cell Recovery Document Number [id number] 03/2011 [employer] The Role of the Immature Platelet Fraction (IPF) in the Differential Diagnosis of Thrombocytopenia, Document [id number] V002/15/14 P002/17 Blood 02/17/2024 11:0 4 AM EDT 02/17/2024 11:12 AM EDT Narrative Resulting Agency Comment Spec In Lab Zak Graham MD HEMATOLOGY ORDERABL ES Performing Organization Address City/State/[facility] Co de Phone Number [facility] [place] [address] * (ABNORMAL) Fibrinogen (02/17/2024 11:04 AM EDT) Fibrinogen 149(L) 200 - 393 mg/dL [facility] Comment: OR Result called by ?? SALVLT OR Results read back by: ? Silvia Pagan at 2024-02-17 11:30:47 A fibrinogen level >100 mg/dL is adequate for hemostasis in most patients without underlying bleeding disorders. Blood 02/17/2024 11:0 4 AM EDT 02/17/2024 11:12 AM EDT Narrative Resulting Agency Comment Spec In Lab Zak Graham MD HEMATOLOGY ORDERABL ES [facility] [place] [address] * (ABNORMAL) BLOOD GAS 2 ARTERIAL (02/17/2024 10:41 AM EDT) pH, Arterial 7.37 7.35 - 7.45 [facility] PCO2, Arterial 44 35 - 45 mmHg [facility] PO2, Arterial 335(H) 85 - 104 mmHg [facility] Bicarbonate, Arterial 24.9 20.0 - 26.0 mmol/L [facility] Base Excess, Arterial -0.4 -3.0 - 3.0 mmol/L [facility] Hgb Blood Gas 11.5(L) 13.7 - 16.5 g/dL [facility] Oxyhemoglobin, Arterial 98.9(H) 94.0 - 97.0 % [facility] Carboxyhemoglob in, Arterial 0.1 % [facility] Comment: Nonsmokers: 0.5-1.5% COHB Smokers: Variable, but usually less than 10% Toxic: 20-30% COHB Lethal: Greater than 60% COHB Methemoglobin, Arterial 0.3 <=1.5 % [facility] Na Whole Blood 132(L) 135 - 145 mmol/L [facility] K Whole Blood 5.9(H) 3.5 - 5.0 mmol/L [facility] Comment: Please note: Patients with WBC >100,000 may have falsely elevated Potassium levels. Contact the Clinical Chemistry Laboratory if there are any questions. ICa Whole Blood 1.02(L) 1.15 - 1.33 mmol/L [facility] Comment: Note: ??Total bilirubin higher than 20 mg/dL may lead to falsely low ionized calcium. CL Whole Blood 104 98 - 107 mmol/L [facility] Gluc Whole Bld 129 65 - 199 mg/dL [facility] Comment:Diabetes: >=200 mg/d L plus symptoms. Lactate WB 1.1 0.5 - 2.2 mmol/L [facility] Blood 02/17/2024 10:4 1 AM EDT 02/17/2024 10:41 AM EDT Zak Graham MD POINT OF CARE TEST ORDERABLES [facility] [place] [address] * (ABNORMAL) BLOOD GAS 2 ARTERIAL (02/17/2024 10:06 AM EDT) pH, Arterial 7.38 7.35 - 7.45 [facility] PCO2, Arterial 42 35 - 45 mmHg [facility] PO2, Arterial 329(H) 85 - 104 mmHg [facility] Bicarbonate, Arterial 24.7 20.0 - 26.0 mmol/L [facility] Base Excess, Arterial -0.3 -3.0 - 3.0 mmol/L [facility] Hgb Blood Gas 11.0(L) 13.7 - 16.5 g/dL [facility] Oxyhemoglobin, Arterial 99.0(H) 94.0 - 97.0 % [facility] Carboxyhemoglob in, Arterial 0.3 % [facility] Comment: Nonsmokers: 0.5-1.5% COHB Smokers: Variable, but usually less than 10% Toxic: 20-30% COHB Lethal: Greater than 60% COHB Methemoglobin, Arterial 0.3 <=1.5 % [facility] Na Whole Blood 132(L) 135 - 145 mmol/L [facility] K Whole Blood 6.0(H) 3.5 - 5.0 mmol/L [facility] Comment: Please note: Patients with WBC >100,000 may have falsely elevated Potassium levels. Contact the Clinical Chemistry Laboratory if there are any questions. ICa Whole Blood 0.97(L) 1.15 - 1.33 mmol/L [facility] Comment: Note: ??Total bilirubin higher than 20 mg/dL may lead to falsely low ionized calcium. CL Whole Blood 102 98 - 107 mmol/L [facility] Gluc Whole Bld 123 65 - 199 mg/dL [facility] Comment:Diabetes: >=200 mg/d L plus symptoms. Lactate WB 1.1 0.5 - 2.2 mmol/L [facility] Blood 02/17/2024 10:0 6 AM EDT 02/17/2024 10:06 AM EDT Zak Graham MD POINT OF CARE TEST ORDERABLES [facility] [place] [address] * Surgical Pathology Report (02/17/2024 10:01 AM EDT) Final Diagnosis [id number] ? Location: [facility]; [facility]; The signing pathologist has (i) examined the relevant preparation(s) for the specimen(s) and (ii) rendered or confirmed the diagnosis(es). . ?Surgical Pathology DIAGNOSIS Aortic valve leaflets, excision: Valve leaflets with myxoid degeneration, nodular fibrosis and dystrophic calcifications. Electronically signed by: ?Lindsay FERNANDEZ, Livier Gonzalez Verified: ??02/24/2024 13:49 ??Pathologist Performed at: ??-[facility] Dept. of Pathology, [place] [address] School Director: Job Brewer MD, FCAP, ??CLIA Certificate: [id number] SPECIMEN(S) SUBMITTED A - Aortic Valve Leaflets, [...] Sections Processing Blocks submitted for decalcification: A1. Rehabilitation Therapy Technician sections in 1 cassette labeled A1. ??ajw 02/24/2024 1:49 PM EDT [facility] AORTIC STRUCTURE / Unknown 02/17/2024 10:01 AM EDT 02/17/2024 10:01 AM EDT Zak Graham MD PATHOLOGY/CYTOLOGY ORDERABLES Performing Organization Address City/[facility]/ZIP Co de Phone Number [facility] [place] [address] * Specimen to Pathology (02/17/2024 10:01 AM EDT) AP Specimen 02/17/2024 10:0 1 AM EDT 02/17/2024 10:01 AM EDT Narrative [facility] - 02/17/2024 10:01 AM EDT Specimen requisition ordered. ??Separate Pathology report to follow Zak Graham MD PATHOLOGY/CYTOLOGY ORDERABLES Performing Organization Address City/[facility]/ZIP Co de Phone Number [facility] [place] [address] * (ABNORMAL) BLOOD GAS 2 ARTERIAL (02/17/2024 9:35 AM EDT) pH, Arterial 7.33(L) 7.35 - 7.45 [facility] PCO2, Arterial 35 35 - 45 mmHg [facility] PO2, Arterial 318(H) 85 - 104 mmHg [facility] Bicarbonate, Arterial 17.9(L) 20.0 - 26.0 mmol/L [facility] Base Excess, Arterial -8.0(L) -3.0 - 3.0 mmol/L [facility] Hgb Blood Gas 11.0(L) 13.7 - 16.5 g/dL [facility] Oxyhemoglobin, Arterial 98.8(H) 94.0 - 97.0 % [facility] Carboxyhemoglob in, Arterial 0.3 % [facility] Comment: Nonsmokers: 0.5-1.5% COHB Smokers: Variable, but usually less than 10% Toxic: 20-30% COHB Lethal: Greater than 60% COHB Methemoglobin, Arterial 0.3 <=1.5 % [facility] Na Whole Blood 131(L) 135 - 145 mmol/L [facility] K Whole Blood 5.8(H) 3.5 - 5.0 mmol/L [facility] Comment: Please note: Patients with WBC >100,000 may have falsely elevated Potassium levels. Contact the Clinical Chemistry Laboratory if there are any questions. ICa Whole Blood 0.98(L) 1.15 - 1.33 mmol/L [facility] Comment: Note: ??Total bilirubin higher than 20 mg/dL may lead to falsely low ionized calcium. CL Whole Blood 101 98 - 107 mmol/L [facility] Gluc Whole Bld 122 65 - 199 mg/dL [facility] Comment:Diabetes: >=200 mg/d L plus symptoms. Lactate WB 0.8 0.5 - 2.2 mmol/L [facility] Blood 02/17/2024 9:35 AM EDT 02/17/2024 9:35 AM EDT Zak Graham MD POINT OF CARE TEST ORDERABLES [facility] [place] [address] * (ABNORMAL) BLOOD GAS 2 VENOUS (02/17/2024 9:34 AM EDT) pH, Venous 7.22(Criti marquez) 7.32 - 7.42 [facility] Comment:Noted by musical instrument supervisor. PCO2, Venous 43 41 - 51 mmHg [facility] Comment:Noted by musical instrument supervisor. PO2, Venous 57(H) 25 - 40 mmHg [facility] Comment:Noted by musical instrument supervisor. Bicarbonate, Venous 17.1 mmol/L [facility] Comment:Noted by musical instrument supervisor. Base Excess, Venous -10.6 mmol/L [facility] Comment:Noted by musical instrument supervisor. Hgb Blood Gas 11.2(L) 13.7 - 16.5 g/dL [facility] Comment:Noted by musical instrument supervisor. Oxyhemoglobin, Venous 86.5 % [facility] Comment:Noted by musical instrument supervisor. Carboxyhemoglob in, Venous 0.3 % [facility] Comment: Noted by musical instrument supervisor. Nonsmokers: 0.5-1.5% COHB Smokers: Variable, but usually less than 10% Toxic: 20-30% COHB Lethal: Greater than 60% COHB Methemoglobin, Venous 0.0 <=1.5 % [facility] Comment:Noted by musical instrument supervisor. Na Whole Blood 156(H) 135 - 145 mmol/L [facility] Comment:Noted by musical instrument supervisor. K Whole Blood 5.5(H) 3.5 - 5.0 mmol/L [facility] Comment: Noted by musical instrument supervisor. Please note: Patients with WBC >100,000 may have falsely elevated Potassium levels. Contact the Clinical Chemistry Laboratory if there are any questions. ICa Whole Blood 1.03(L) 1.15 - 1.33 mmol/L [facility] Comment: Noted by musical instrument supervisor. Note: ??Total bilirubin higher than 20 mg/dL may lead to falsely low ionized calcium. CL Whole Blood 100 98 - 107 mmol/L [facility] Comment:Noted by musical instrument supervisor. Gluc Whole Bld 132 65 - 199 mg/dL [facility] Comment: Noted by musical instrument supervisor. Diabetes: >=200 mg/dL plus symptoms Lactate WB 1.0 0.5 - 2.2 mmol/L [facility] Comment:Noted by musical instrument supervisor. Blood Gas Source Venous [facility] Blood 02/17/2024 9:34 AM EDT 02/17/2024 9:34 AM EDT Zak Graham MD POINT OF CARE TEST ORDERABLES [facility] [place] [address] * (ABNORMAL) BLOOD GAS 2 ARTERIAL (02/17/2024 8:07 AM EDT) pH, Arterial 7.43 7.35 - 7.45 [facility] PCO2, Arterial 34(L) 35 - 45 mmHg [facility] PO2, Arterial 581(H) 85 - 104 mmHg [facility] Bicarbonate, Arterial 21.7 20.0 - 26.0 mmol/L [facility] Base Excess, Arterial -2.6 -3.0 - 3.0 mmol/L [facility] Hgb Blood Gas 14.5 13.7 - 16.5 g/dL [facility] Oxyhemoglobin, Arterial 99.0(H) 94.0 - 97.0 % [facility] Carboxyhemoglob in, Arterial 0.4 % [facility] Comment: Nonsmokers: 0.5-1.5% COHB Smokers: Variable, but usually less than 10% Toxic: 20-30% COHB Lethal: Greater than 60% COHB Methemoglobin, Arterial 0.3 <=1.5 % [facility] Na Whole Blood 139 135 - 145 mmol/L [facility] K Whole Blood 4.0 3.5 - 5.0 mmol/L [facility] Comment: Please note: Patients with WBC >100,000 may have falsely elevated Potassium levels. Contact the Clinical Chemistry Laboratory if there are any questions. ICa Whole Blood 1.09(L) 1.15 - 1.33 mmol/L [facility] Comment: Note: ??Total bilirubin higher than 20 mg/dL may lead to falsely low ionized calcium. CL Whole Blood 106 98 - 107 mmol/L [facility] Gluc Whole Bld 100 65 - 199 mg/dL [facility] Comment:Diabetes: >=200 mg/d L plus symptoms. Lactate WB 1.3 0.5 - 2.2 mmol/L [facility] Blood 02/17/2024 8:07 AM EDT 02/17/2024 8:07 AM EDT Zak Graham MD POINT OF CARE TEST ORDERABLES Performing Organization Address [facility]/ZIP Co de Phone Number [facility] [place] [address] * POCT Glucose (02/17/2024 6:38 AM EDT) Glucose, POC 98 65 - 199 mg/dL [facility] Comment: Supplemental ranges: <140 mg/dL before meals <180 mg/dL all other times of the day Blood 02/17/2024 6:38 AM EDT 02/17/2024 6:38 AM EDT Zak Graham MD POINT OF CARE TEST ORDERABLES Performing Organization Address [facility] Co de Phone Number [facility] [place] [address] * Transesophageal Echo/OR (02/17/2024 6:33 AM EDT) [...] 6 hours upon arrival to Unit. Give IA if unable to take PO, Routine Given [...] dose on Sat02/17/24 at 1400, Until Discontinued, [place] teeth and / or gums. Scan the CHG vial in the [employer] Q-Care Oral Care Kit from floor stock. Ventilator-associated pneumonia prophylaxis For use in ICU/Critical care locations ONLY. Obtain kit from Floor Stock location. Scan CHG vial in the [employer] Q-Care Oral Care Kit, Routine Given 02/17/2024 [...] at 50% of previous rate. Call house mover if goal not achieved at maximum rate. [...] PHENYLephrine and/or vasopressin ineffective. Call pager # [phone] if initiated. Titrate to keep systolic blood [...] L/min/M2. Maximum volume 2 L. Call house mover for additional fluid orders: pager #[phone]. Rate/Dose Verify 02/18/2024 8:00 AM EDT 1 mL/hr 1 mL/hr Rate/Dose Verify 02/18/2024 6:00 AM EDT 1 mL/hr 1 mL/hr Rate/Dose Verify 02/18/2024 4:00 AM EDT 1 mL/hr 1 mL/hr sodium chloride 0.9% infusion 10-30 mL/hr, Intravenous, DAILY PRN, Starting on Sat02/17/24 at 1307, Until Sat02/18/24 at 0835, Side port TKO rate, per [facility] nursing protocol. Rate/Dose Verify 02/17/2024 8:00 PM EDT 30 mL/hr 30 mL/hr Rate/Dose Verify 02/17/2024 6:00 PM EDT 30 mL/hr 30 mL/h r Rate/Dose Verify 02/17/2024 5:00 PM EDT 30 mL/hr 30 mL/h r sodium chloride 0.9% infusion 10-30 mL/hr, Intravenous, DAILY PRN, Starting on Sat02/17/24 at 1307, Until Sat02/18/24 at 0835, Side port TKO rate, per [facility] nrusing protocol. Rate/Dose Verify 02/18/2024 8:00 [...] Routine documented in this encounter Care Teams Screen Printing Supervisor Relationship Specialty Start Date End Date Aparna Jordan APRN PCP - General Family Medicine 10/21/23 documented as of this encounter
--- OUTSIDE RECORDS SUMMARY | 2024-05-22 08:42 | XMS_ITS | Encounter Summary ---
Author Organization [facility] Address [facility] [place] [address] Care Team Providers Care Care Team Assistant Name Role Phone Vanessa Christian MAURI Primary Care Provider [phone] Reason for Visit * Consultation (Routine) - Closed Specialty Diagnoses / Procedures Referred By Contac t Referred To Contact Cardiac Surgery Diagnoses Nonrheumatic aortic valve stenosis significant - TAVR ( defers to Card Surg d/t age) Neftali Ernandez MD [facility] [place] [address] Zak Farmer MD [facility] [place] [address] Referral ID Status Reason Start Date Expiration Date V isits Requested Visits Authorized [id number] Closed Consult, Test & Treat 10/21/2023 10/20/2024 1 1 Encounter Details Date Type Department Care Team (Late st Contact Info) Description 01/09/2024 1:40 PM EDT Office [place] [address] Zak Farmer MD [facility] [place] [address] Nonrheumatic aortic valve stenosis Social [...] office. Best personal regards, Zak Farmer MD [phone] In aggregate 55 minutes were spent evaluating [...] AM EDT Office Visit Cardiology at [address] [place] [phone] Neftali Ernandez MD [facility] [place] [address] documented as of this encounter Results * [...] who have questions please contact the health family day care provider that requested your imaging first. ? Electronically signed by: Toby Dave MD, [facility] ([phone]), at 01/09/2024 3:11 PM Narrative 01/09/2024 3:11 [...] patients who have questions please contactthe health family day care provider that requested your imaging first. Zak Farmer MD IMG DX ORDERABLES * Basic Metabolic Panel (non-fasting) (01/09/2024 2:58 PM EDT) Glucose 102 65 - 199 mg/dL [facility] Comment:Diabetes: >=200 mg/d L plus symptoms Blood Urea Nitrogen 15 10 - 20 mg/dL [facility] [...] - 107 mmol/L [facility] Carbon Dioxide 27 22 - 31 mmol/L [facility] Anion Gap 7 5 - 15 mmol/L [facility] Calcium 9.5 8.5 - 10.5 mg/dL [facility] Est Glomerular Filtration Rate 91 >=60 mL/min/1. 73 m?? [facility] [...] CHEMISTRY ORDERABLE S [facility] [place] [address] * Hepatic Function Panel (01/09/2024 2:58 PM EDT) Pathologist [facility] Protein, Total 6.7 6.1 - 8.0 g/dL [facility] Albumin 4.5 3.2 - 5.2 g/dL [facility] Aspartate Aminotransferase 21 0 - 39 unit/L [facility] Alanine Aminotransferase 21 0 - 55 unit/L [facility] Alkaline Phosphatase 81 40 - 130 unit/L [facility] Bilirubin, Total 0.7 0.2 - 1.3 mg/dL [facility] Bilirubin, Direct 0.2 0.0 - 0.3 mg/dL [facility] Blood 01/09/2024 2:58 PM EDT 01/09/2024 3:03 PM EDT Narrative Resulting Agency Comment Spec In Lab Zak Farmer MD CHEMISTRY ORDERABLE S Performing Organization Address [facility] Co de Phone Number [facility] [place] [address] * Prothrombin Time (01/09/2024 2:58 PM EDT) [facility] [address] Prothrombin Time 10.6 9.4 - 12.[address] [facility] International Normalization Ratio 0.9 [facility] Comment: An INR <2.0 indicates [...] MD HEMATOLOGY ORDERABL ES Performing Organization Address City/[facility]/ZIP Co de Phone Number [facility] [place] [address] * Type and Screen Future Surgery, [facility] [place] [facility] ONLY) (01/09/2024 2:58 PM [...] Farmer MD BLOOD BANK LAB CAL[facility] Organization Address City/State/ZIP Co de Phone Number [facility] [place] [address] documented in this encounter Visit Diagnoses Diagnosis Nonrheumatic aortic valve stenosis Aortic valve disorders Nonrheumatic aortic valve stenosis Aortic valve disorders documented in this encounter Care Teams Care Team Assistant Relationship Specialty Start Date End Date Vanessa Christian APRN PCP - General Family Medicine 10/21/23 documented as of this encounter
--- OUTSIDE RECORDS SUMMARY | 2024-05-22 08:42 | XMS_ITS | Encounter Summary ---
Author Organization [facility] Address [facility] [place] [address] Care Team Providers Care Crm Specialist Name Role Phone Vanessa Christian APRN Primary Care Provider [phone] Encounter Details Date Type Department Care Team [...] AM EDT Office Visit Cardiology at [address] [place] [address] Neftali Ernandez MD [facility] [place] [place] [address] documented as of this encounter Visit Diagnoses Not on filedocumented in this encounter Care Teams Crm Specialist Relationship Specialty Start Date End Date Vanessa Christian APRN PCP - General Family Medicine 10/21/23 documented as of this encounter
--- OUTSIDE RECORDS SUMMARY | 2024-05-22 08:42 | XMS_ITS | Encounter Summary ---
Author Organization [facility] [place] [address] Care Team Providers Care Shelf Stocker Name Role Phone Vanessa Christian APRN Primary Care Provider [phone] Encounter Details Date Type Department Care Team (Late st Contact Info) Description 10/21/2023 Abstract Cardiology at [address] [phone] Adam Mayes RN Social History Tobacco Use [...] AM EDT Office Visit Cardiology at [address] [phone] Neftali Ernandez MD [facility] [place] [address] documented as of this encounter Visit Diagnoses Not on filedocumented in this encounter Care Teams Shelf Stocker Relationship Specialty Start Date End Date Vanessa Christian APRN PCP - General Family Medicine 10/21/23 documented as of this encounter
--- OUTSIDE RECORDS SUMMARY | 2024-05-22 08:42 | XMS_ITS | Encounter Summary ---
[place] [address] Care Team Providers Care Retail Sales Director Name Role Phone Victor M Lafleur MD Primary Care Provider [phone] Reason for Visit * Reason Onset Date Comments Referral 09/20/2023 Encounter Details Date Type Department Care Team (Late st Contact Info) Description 09/20/2023 Telephone Cardiology at [address] [phone] Karen Billy, cocoa press operator Social History Tobacco Use Types Packs/Day Years [...] 11:00 AM EDT Office Visit Cardiology at [address] [place] [address] Neftali Ernandez MD [facility] [place] [address] documented as of this encounter Visit Diagnoses Not on filedocumented in this encounter Care Teams Retail Sales Director Relationship Specialty Start Date End Date Victor M Lafleur MD PCP - General 10/02/13 10/20/23 documented as of this encounter
--- OUTSIDE RECORDS SUMMARY | 2024-05-22 08:42 | XMS_ITS | Encounter Summary ---
Author Organization [facility] [place] [address] Care Team Providers Care Grinder And Honer Operator Automatic Name Role Phone Vanessa Christian APRN Primary [...] 11:00 AM EDT Office Visit Cardiology at [address] [place] [phone] Neftali Ernandez MD [facility] [place] [address] documented as of this encounter Visit Diagnoses Not on filedocumented in this encounter Care Teams Grinder And Honer Operator Automatic Relationship Specialty Start Date End Date Vanessa Christian APRN PCP - General Family Medicine 10/21/23 documented as of this encounter
--- OUTSIDE RECORDS SUMMARY | 2024-05-22 08:42 | XMS_ITS | Encounter Summary ---
Author Organization [facility] [place] [address] Care Team Providers Care Manufacturing Chief Engineer Name Role Phone Victor M Lafleur MD Primary Care Provider [phone] Encounter Details Date Type Department Care Team (Late st Contact Info) Description 09/26/2023 Abstract Cardiology at [address] [phone] Karen Billy, RN Nonrheumatic aortic [...] AM EDT Office Visit Cardiology at [address] [address] Neftali Ernandez MD [facility] [place] [address] documented as of this encounter Visit Diagnoses Diagnosis Nonrheumatic aortic valve stenosis Aortic valve disorders Nevus of face Benign neoplasm of skin of other and unspecified parts of face documented in this encounter Care Teams Manufacturing Chief Engineer Relationship Specialty Start Date End Date Victor M Lafleur MD PCP - General 10/02/13 10/20/23 documented as of this encounter
--- OUTSIDE RECORDS SUMMARY | 2024-05-22 08:42 | XMS_ITS | Encounter Summary ---
Author Organization [facility] Address [facility] [place] [address] Care Team Providers Care Press Tender Incendiary Grenade Name Role Phone Vanessa Christian MAURI Primary Care Provider [phone] Encounter Details Date Type Department Care Team (Late st Contact Info) Description 02/14/2024 Orders [place] [phone] Zak Farmer MD [facility] [place] [address] Coronary artery disease, unspecified vessel or lesion type, unspecified whether angina present, unspecified whether [place] or transplanted heart (Primary Dx) Social History [...] 11:00 AM EDT Office Visit Cardiology at [address] [place] [phone] Neftali Ernandez MD [facility] [place] [address] documented as of this encounter Results * EKG 12 Lead (03/12/2024 2:35 PM EDT) Ventricular rate 59 BPM MUSE SYSTEM Atrial Rate 59 BPM MUSE SYSTEM P-R Interval 190 ms MUSE SYSTEM QRS Duration 92 ms MUSE SYSTEM Q-T Interval 406 ms MUSE SYSTEM QTC Calculated (Bezet) 401 ms MUSE SYSTEM Calculated P [place] -12 degrees MUSE SYSTEM Calculated R [place] 24 degrees MUSE SYSTEM Calculated T [place] 74 degrees MUSE SYSTEM INTERPRETATION Sinus bradycardia T wave abnormality, consider anterior ischemia Abnormal ECG When compared with ECG of 17-FEB-2024 13:24, MA interval has decreased T wave inversion now evident in Anterior leads Confirmed by Paul Guzman ([id number]) on 03/15/2024 8:36:23 AM MUSE SYSTEM 03/12/2024 2:35 PM EDT 03/15/2024 8:36 AM EDT Zak Farmer MD ECG ORDERABLES MUSE SYSTEM * XR Chest PA & Lateral (Generic) (03/12/2024 1:42 PM EDT) WORKSTATION ID [id number] RAD Anatomical Region Laterality Modality Chest N/A [...] who have questions please contact the health adult day care worker that requested your imaging first. ? Electronically signed by: Augie Sanchez MD, [facility] ([phone]), at 03/13/2024 8:28 AM Narrative 03/13/2024 8:28 AM EDT EXAMINATION: XR CHEST PA AND LATERAL (GENERIC) CLINICAL HISTORY: s/p cabg eval effusions I25.10, Atherosclerotic heart disease of [place] coronary artery without angina pectoris TECHNIQUE: PA [...] eval effusions I25.10, Atherosclerotic heart disease of [place] coronary artery withoutangina pectoris TECHNIQUE: PA and [...] patients who have questions please contactthe health adult day care worker that requested your imaging first. Electronically signed by: Augie Sanchez MD, [facility]([phone]), at 03/13/2024 8:28 AM Zak Farmer MD IMG DX ORDERABLES documented in this encounter Visit Diagnoses Diagnosis Coronary artery disease, unspecified vessel or lesion type, unspecified whether angina present, unspecified whether [place] or transplanted heart- Primary Coronary artery disease, unspecified vessel or lesion type, unspecified whether angina present, unspecified whether [place] or transplanted heart documented in this encounter Care Teams Press Tender Incendiary Grenade Relationship Specialty Start Date End Date Vanessa Christian APRN PCP - General Family Medicine 10/21/23 documented as of this encounter
--- OUTSIDE RECORDS SUMMARY | 2024-05-22 08:42 | XMS_ITS | Encounter Summary ---
Author Organization [facility] Address [facility] Ivana linareseileen [place] [id number] Care Team Providers Care Donor Services Team Leader Name Role Phone Vanessa Christian MAURI Primary Care Provider [phone] Reason for Referral * Consultation (Routine) - Closed Specialty Diagnoses / Procedures Referred By Contac t Referred To Contact Cardiac Surgery Diagnoses Nonrheumatic aortic valve stenosis significant - TAVR ( defers to Card Surg d/t age) Errol Loya MD [facility] [place] [address] Zak Farmer MD [facility] [place] [address] Referral ID Status Reason Start Date Expiration Date V isits Requested Visits Authorized [id number] Closed Consult, Test & Treat 10/21/2023 10/20/2024 1 1 Reason for Visit * Reason Comments Chest Pain Shortness of Breath Aortic Stenosis Encounter Details Date Type Department Care Team (Late st Contact Info) Description 10/21/2023 1:20 PM EST Office Visit Cardiology at [address] [phone] Errol Loya MD [facility] [place] [address] Nonrheumatic aortic valve stenosis Social History Tobacco [...] Diagnosis Aortic stenosis 12/2022 TTE ([facility]): VITA 0.8-0.9 cm2 (MG 28 mmHg, DOI 3.6 m/s, SVI 35 cc/m2). Trace regurgitation. Normal bi-v s/f, no other valve findings Gastroesophageal reflux Nevus of face Right adventist Hypertension HLD (hyperlipidemia) MEDICATIONS: Current Outpatient Medications [...] the meantime will refer to SHT at [facility] for further evaluation. Logistics and preliminary review of TONY were reviewed with patient. - Refer to T RTC pending TONY evaluation (or review of echocardiogram) Errol Loya MD Between 60-74 minutes were spent doing patient care, chart care/review (today), and care coordination. documented in this encounter Miscellaneous Notes * Assessment & Plan Note - Errol Loay MD - 10/21/2023 3:47 PM EST Associated Problem(s): Aortic stenosis Based on patient's history, it seems like he indeed has severe . However, his demographics, rapidity of worsening (had TTE in 2019 which demonstrated but mild disease) are contrary to this. Will review images personally, but in the meantime will refer to SHT at [facility] for further evaluation. Logistics [...] AM EDT Office Visit Cardiology at [address] [place] [address] Errol Loya MD [facility] [place] [address] Scheduled Referrals Name Type Priority Associated Diagnoses Order Schedule Amb Referral to Structural Heart Outpatient Referral Routine Nonrheumatic aortic valve stenosis Ordered: 10/21/2023 documented as of this encounter Visit Diagnoses Diagnosis Nonrheumatic aortic valve stenosis Aortic valve disorders documented in this encounter Care Teams Donor Services Team Leader Relationship Specialty Start Date End Date Vanessa Christian APRN PCP - General Family Medicine 10/21/23 documented as of this encounter
--- OUTSIDE RECORDS SUMMARY | 2024-05-22 08:42 | XMS_ITS | Encounter Summary ---
Author Organization [facility] Address [facility] [place] [address] Care Team Providers Care Maxillofacial Prosthodontist Name Role Phone Vanessa Christian MAURI Primary Care Provider [phone] Encounter Details Date Type Department Care Team (Latest Contact Info) Description 01/09/2024 3:02 PM EDT - 01/09/2024 11:59 PM EDT Hospital Encounter XRay at [address] [place] [address] Zak Farmer MD [facility] [place] [address] Nonrheumatic aortic valve stenosis Discharge Disposition: Home Social History Tobacco Use Types Packs/Day Years Used Date Smoking Tobacco: Former Cigarettes Smokeless Tobacco: Never Comments:Quit 15 + years ago Alcohol Use Standard Drinks/Week Comments Yes 0 (1 standard drink = 0.6 oz pur e alcohol) rare [facility] Inpatient Questions Answer Date Recorded [...] 11:00 AM EDT Office Visit Cardiology at [address] [place] [address] Neftali Ernandez MD [facility] [place] [address] documented as of this encounter Procedures Procedure [...] who have questions please contact the health specialist wound care that requested your imaging first. ? [...] patients who have questions please contactthe health specialist wound care that requested your imaging first. Zak Farmer MD IMG DX ORDERABLES documented in this encounter Visit Diagnoses Diagnosis Nonrheumatic aortic valve stenosis Aortic valve disorders documented in this encounter Care Teams Maxillofacial Prosthodontist Relationship Specialty Start Date End Date Vanessa Christian APRN PCP - General Family Medicine 10/21/23 documented as of this encounter
--- OUTSIDE RECORDS SUMMARY | 2024-05-22 08:42 | XMS_ITS | Encounter Summary ---
Author Organization [facility] [place] [address] Care Team Providers Care Informatics Physician Name Role Phone Vanessa Christian MAURI Primary Care Provider [phone] Encounter Details Date Type Department Care Team (Latest Contact Info) Description 01/09/2024 3:00 PM EDT Laboratory [place] [phone] Nonrheumatic aortic valve stenosis Social History Tobacco [...] AM EDT Office Visit Cardiology at [address] [phone] Neftali Ernandez MD [facility] [place] [address] documented as of this encounter Procedures Procedure Name Priority Date/Time Associated Diagnosis Comments ABORH RECHECK STATUS Routine 01/09/2024 2:58 PM EDT HEMOGRAM Routine 01/09/2024 2:58 PM EDT Nonrheumatic aortic valve stenosis DIFFERENTIAL, AUTOMATED Routine 01/09/2024 2:58 PM EDT Nonrheumatic aortic valve stenosis TYPE AND SCREEN, SDP (FUTURE SURGERY, [facility] SAME DAY PROGRAM [...] LAB CECILIO ALEMAN [facility] [place] [address] * Differential, Automated (01/09/2024 2:58 PM EDT) Neutrophil % 70.5 % [facility] Neutrophil Absolute 4.34 1.70 - 6.10 x10(3)/[facility] LABORATORY Lymph % 18.9 % [facility] Lymphocytes Abs 1.2 0.9 - 3.2 x10(3)/[facility] LABORAT[facility] Monocyte % 8.0 % [facility] Monocyte Abs 0.5 0.3 - 0.9 x10(3)/[facility] LABOR[facility] Eos % 1.6 % [facility] Eosinophils Abs 0.1 0.0 - 0.4 x10(3)/[facility] LABORATORY Basophil % 0.5 % [facility] Baso Absolute 0.0 0.0 - 0.1 x10(3)/[facility] LABORAT[facility] Immature Gran % 0.50 % [facility] Comment: Immature granulocytes(IG's)percentage and absolute count will include metamyelocytes, myelocytes, and promyelocytes. Blood smears from CBCs yielding IG's will be scanned manually for concordance. If this scan disagrees with the automated IG or if promyelocytes are noted, a manual differential will be performed. Immature Gran Absolute 0.03 0.00 - 0.04 x10(3)/[facility] LABORATORY Blood 01/09/2024 2:58 PM EDT 01/09/2024 3:03 PM EDT Narrative Resulting Agency Comment Spec In Lab Zak Farmer MD HEMATOLOGY ORDERABL ES [facility] [place] [address] * Hemogram (01/09/2024 2:58 PM EDT) White Blood Cell 6.2 4.0 - 9.5 x10(3)/[facility] LABORAT[facility] Red Blood Cell 5.53 4.58 - 5.54 x10(6)/[facility] LABORATORY Hemoglobin 16.1 13.7 - [...] HOSPITAL LABORATORY Platelet 187 145 - 357 x10(3)/[facility] LABORATORY RDW Standard Deviation 39.2 36.0 - 45.[address] [facility] RDW coefficient of variation 12.6 11.4 - 13.8 % [facility] Mean Platelet Volume 9.5 7.6 - 12.[address] [facility] NRBC% auto 0.0 % [facility] NRBC Absolute 0.000 0.000 - 0.000 x10(3)/[facility] Blood 01/09/2024 2:58 PM EDT 01/09/2024 3:03 PM EDT Narrative Resulting Agency Comment Spec In Lab Zak Farmer MD HEMATOLOGY ORDERABL ES [facility] [place] [address] * Basic Metabolic Panel (non-fasting) (01/09/2024 2:58 [...] CHEMISTRY ORDERABLE S [facility] [place] [address] * Hepatic Function Panel (01/09/2024 2:58 PM [...] MD CHEMISTRY ORDERABLE S Performing Organization Address [place] Co de Phone Number [facility] [place] [address] * Prothrombin Time (01/09/2024 2:58 PM EDT) [...] MD HEMATOLOGY ORDERABL ES Performing Organization Address [facility] Co de Phone Number [facility] [place] [address] * Type and Screen Future Surgery, [facility] SAME DAY PROGRAM ONLY) (01/09/2024 2:58 PM EDT) Pathologist [facility] ABORH Type O NEGATIVE [facility] Patient BB History Not Found [facility] Expires at 2359 on: 02-20-2024 [facility] Ab Screen Interp Negative [facility] Blood 01/09/2024 2:58 PM EDT 01/09/2024 2:58 PM EDT Narrative Resulting Agency Comment Spec In Lab Zak Farmer MD BLOOD BANK LAB ORDE RABLES Performing Organization Address City/[facility]/ZIP Co de Phone Number [facility] [place] [address] documented in this encounter Visit Diagnoses Diagnosis Nonrheumatic aortic valve stenosis Aortic valve disorders documented in this encounter Care Teams Informatics Physician Relationship Specialty Start Date End Date Vanessa Christian APRN PCP - General Family Medicine 10/21/23 documented as of this encounter
--- OUTSIDE RECORDS SUMMARY | 2024-05-22 08:42 | XMS_ITS | Encounter Summary ---
Author Organization [facility] [place] [address] Care Team Providers Care Fishing Rod Marker Name Role Phone Vanessa Christian APRN Primary Care Provider [phone] Encounter Details Date Type Department Care Team [...] AM EDT Office Visit Cardiology at [address] [place] [phone] Neftali Ernandez MD [facility] [place] [address] documented as of this encounter Visit Diagnoses Not on filedocumented in this encounter Care Teams Fishing Rod Marker Relationship Specialty Start Date End Date Vanessa Christian APRN PCP - General Family Medicine 10/21/23 documented as of this encounter
--- OUTSIDE RECORDS SUMMARY | 2024-05-22 08:42 | XMS_ITS | Encounter Summary ---
Author Organization [facility] [place] [address] Care Team Providers Care Hog Sawyer Name Role Phone Vanessa Christian MAURI Primary Care Provider [phone] Reason for Visit * Auth/Cert (Routine) Specialty [...] W RHC (WRVU 5.9) Rima Dickinson MD [facility] [place] [address] [facility] Referral ID Status Reason Start Date Expiration Date Visits Re quested Visits Authorized [id number] 1 1 Encounter Details Date Type Department Care Team (Late st Contact Info) Description 02/03/2024 10:00 AM EDT - 02/03/2024 11:00 AM EDT [place] [address] Saira Lua MD [facility] [place] [address] CARDIAC CATHETERIZATION Social History Tobacco Use Types [...] lbs Follow-up Visits Follow up with your sample dye mixer in 2-4 weeks Access Site 'Black and Blue' and tenderness is expected during the first week Call if you noted a mass (lump) greater than the size of a ellis Call Office with any Questions and if you have any of the following Clarence Lane M.D Interventional Oil Pipeline Operator Lance Crewmember #: [phone] * Attachments The following attachments cannot be [...] Lane MD - 02/03/2024 11:48 AM EDT [facility] Interventional Cardiology Adult Pre-Procedure H&P Update: Cardiac Catheterization Karlos Anthony [id number] 1960 Chief Complaint: Aortic stenosis HPI: Mr. [...] is inthe chart Clarence Lane MD Interventional Oil Pipeline Operator 02/03/24 11:48 AM documented in this encounter Miscellaneous Notes * Brief Op Note - Clarence Lane MD - 02/03/2024 12:51 PM EDT Preliminary Cardiac Catheterization Procedure Note: Patient Name: Karlos Anthony : [id number] MR#: [id number] Case Date: 02/03/2024 Lance Crewmember: Surgeon(s) and Role: * Saira Lua MD [...] AM EDT Office Visit Cardiology at [address] [phone] Neftali Ernandez MD [facility] [place] [place] [address] Scheduled Orders Name Type Priority Associated Diagnoses [...] Modality Other Narrative 02/12/2024 3:47 PM EDT ?[facility] ? Cardiac Catheterization/Intervention Report ? Patient Name: Patenaude, Karlos ? Procedure Date: 02/03/2024 ? A #: [id number] ? Primary Physician: Saira Lua ? Case #: [id number] ? File Name: [id number] ? Catheterization Order Number: [id number] ? [facility] ? Final Report [place], [place] ? Patient Name: ? Karlos Patenaude ? ID#: ?[id number] ? : ?1960 ? Procedure Date: ? February 03, 2024 ? Case #: ? [id number] ? Room: ? 5 ? Case Physician: [...] Procedure Note Saira Lua MD - 02/12/2024 [facility] Cardiac Catheterization/Intervention Report Patient Name: Karlos Anthony Procedure Date: 02/03/2024 A #: [id number] Primary Physician: Saira Lua Case #: [id number] File Name: [id number] Catheterization Order Number: [id number] [facility] FinalReport [place], [place] Patient Name: aKrlos Anthony ID#:[id number] :1960 Procedure Date: February 03, 2024 Case [...] was designated as ASA Class III. The [facility] clinical frailty scale is 3: Managing [...] (Bezet) 372 ms MUSE SYSTEM Calculated P [place] 59 degrees MUSE SYSTEM Calculated R [place] 34 degrees MUSE SYSTEM Calculated T [place] 63 degrees MUSE SYSTEM INTERPRETATION Sinus bradycardia [...] MD) documented in this encounter Care Teams Hog Sawyer Relationship Specialty Start Date End Date Vanessa Christian, MAURI PCP - General Family Medicine 10/21/23 documented as of this encounter
--- OUTSIDE RECORDS SUMMARY | 2024-05-22 08:42 | XMS_ITS | Encounter Summary ---
Author Organization [facility] [place] [address] Care Team Providers Care Client Advisor Name Role Phone Vanessa Christian Lane DOTSON Primary Care Provider [phone] Encounter Details Date Type Department Care Team (Late st Contact Info) Description 01/09/2024 2:30 PM EDT Clinical Support Same Day at [facility] [place] [phone] Social History Tobacco Use Types Packs/Day Years Used Date Smoking Tobacco: Former Cigarettes Smokeless Tobacco: Never Comments:Quit 15 + years ago Alcohol Use Standard Drinks/Week Comments Yes 0 (1 standard drink = 0.6 oz pur e alcohol) rare [facility] Inpatient Questions Answer Date Recorded Prevent [...] you tube link for a video about [facility] cardiac surgery. Instructed to bring the booklet [...] type and screen performed while in the [facility]. Sent to Radiology for chest x-ray. Special medication instructions: None Procedure date: not booked. Darian documented in this encounter Plan of Treatment Upcoming Encounters Date Type Department Care Team (Late st Contact Info) Description 05/27/2024 11:00 AM EDT Office Visit Cardiology at [address] [place] [phone] Neftali Ernandez MD [facility] [place] [address] documented as of this encounter Visit Diagnoses Not on filedocumented in this encounter Care Teams Client Advisor Relationship Specialty Start Date End Date Vanessa Christian APRN PCP - General Family Medicine 10/21/23 documented as of this encounter
--- OUTSIDE RECORDS SUMMARY | 2024-05-22 08:42 | XMS_ITS | Encounter Summary ---
Author Organization [facility] [place] [address] Care Team Providers Care Latex Thread Machine Operator Name Role Phone Vanessa Christian MAURI Primary Care Provider [phone] Reason for Visit * Auth/Cert (Routine) Specialty [...] W RHC (WRVU 5.9) Rima Dickinson MD [facility] [place] [address] [facility] Referral ID Status Reason Start Date Expiration Date Visits Re quested Visits Authorized [id number] 1 1 Encounter Details Date Type Department Care Team (Latest Contact Info) Description 02/03/2024 8:06 AM EDT - 02/03/2024 2:54 PM EDT Hospital Encounter [place] [address] Rima Dickinson MD [facility] [place] [address] Screening for cardiovascular condition; Aortic valve stenosis, [...] lbs Follow-up Visits Follow up with your armed security professional in 2-4 weeks Access Site 'Black and Blue' and tenderness is expected during the first week Call if you noted a mass (lump) greater than the size of a ellis Call Office with any Questions and if you have any of the following Clarence Lane M.D Interventional Clinical Registered Nurse Scrap Metal Collector #: [phone] * Attachments The following attachments cannot be sent through Care Everywhere. * CAD (Coronary Artery Disease): General Info (Ukrainian) * Coronary Angiogram: Post-op (Ukrainian) documented in this encounter Medications at Time [...] Lane MD - 02/03/2024 11:48 AM EDT [facility] Interventional Cardiology Adult Pre-Procedure H&P Update: Cardiac Catheterization Karlos Anthony [id number] 1960 Chief Complaint: Aortic stenosis HPI: Mr. [...] is inthe chart Clarence Lane MD Interventional Clinical Registered Nurse 02/03/24 11:48 AM documented in this encounter Miscellaneous Notes * Brief Op Note - Clarence Lane MD - 02/03/2024 12:51 PM EDT Preliminary Cardiac Catheterization Procedure Note: Patient Name: Karlos Anthony : [id number] MR#: [id number] Case Date: 02/03/2024 Scrap Metal Collector: Surgeon(s) and Role: * Saira Lua MD [...] 11:00 AM EDT Office Visit Cardiology at [address] [place] [address] Neftali Ernandez MD [facility] [address] Scheduled Orders Name Type Priority Associated Diagnoses [...] Other Narrative 02/12/2024 3:47 PM EDT ?[facility] ? Cardiac Catheterization/Intervention Report ? Patient Name: Karlos Anthony ? Procedure Date: 02/03/2024 ? A #: [id number] ? Primary Physician: Saira Lua ? Case #: [id number] ? File Name: [id number] ? Catheterization Order Number: [id number] ? [facility] ? Final Report [place], [place] ? Patient Name: ? Karlos Patenaude ? ID#: ?[id number] ? : ?1960 ? Procedure Date: ? [...] Note Saira Lua MD - 02/12/2024 [facility] Cardiac Catheterization/Intervention Report Patient Name: Karlos Anthony Procedure Date: 02/03/2024 A #: [id number] Primary Physician: Saira Lua Case #: [id number] File Name: [id number] Catheterization Order Number: [id number] [facility] FinalReport [place], [place] Patient Name: Karlos Anthony ID#:[id number] :1960 Procedure Date: February 03, 2024 Case [...] (Bezet) 372 ms MUSE SYSTEM Calculated P Nogal 59 degrees MUSE SYSTEM Calculated R Nogal 34 degrees MUSE SYSTEM Calculated T Nogal 63 degrees MUSE SYSTEM INTERPRETATION Sinus bradycardia [...] MD) documented in this encounter Care Teams Latex Thread Machine Operator Relationship Specialty Start Date End Date Vaenssa Christian APRN PCP - General Family Medicine 10/21/23 documented as of this encounter
--- OUTSIDE RECORDS SUMMARY | 2024-05-22 08:42 | XMS_ITS | Encounter Summary ---
Author Organization [facility] [place] [address] Care Team Providers Care Economics Consultant Name Role Phone Vanessa Christian Lane DOTSON Primary Care Provider [phone] Reason for Referral * Diagnostic Test (Routine) - Closed Specialty Diagnoses / Procedures Referred By Contac t Referred To Contact Radiology Diagnoses Nonrheumatic aortic valve stenosis Procedures CT Chest wo Contrast (Generic) Louisa Cho PA [facility] [place] [address] [facility] [place] [address] Referral ID Status Reason Start Date Expiration Date V isits Requested Visits Authorized [id number] Closed Specialty Service Requested 01/10/2024 07/11/2025 1 1 Reason for Visit * Diagnostic Test (Routine) - Closed Specialty Diagnoses / Procedures Referred By Contac t Referred To Contact Radiology Diagnoses Nonrheumatic aortic valve stenosis Procedures CT Chest wo Contrast (Generic) Louisa Cho PA [facility] [place] [address] [facility] [place] [address] Referral ID Status Reason Start Date Expiration Date V isits Requested Visits Authorized [id number] Closed Specialty Service Requested 01/10/2024 07/11/2025 1 1 Encounter Details Date Type Department Care Team (Latest Contact Info) Description 02/03/2024 7:36 AM EDT - 02/03/2024 8:05 AM EDT Hospital [place] [address] Zak Farmer MD [facility] [place] [address] Nonrheumatic aortic valve stenosis Discharge Disposition: Home Social History Tobacco Use Types Packs/Day Years Used Date Smoking Tobacco: Former Cigarettes Smokeless Tobacco: Never Comments:Quit 15 + years ago Alcohol Use Standard Drinks/Week Comments Yes 0 (1 standard drink = 0.6 oz pur e alcohol) rare [facility] Inpatient Questions Answer Date Recorded Does [...] AM EDT Office Visit Cardiology at [address] [place] [address] Neftali Ernandez MD [facility] [place] [address] documented as of this encounter Procedures Procedure Name Priority Date/Time Associated Diagnosis Comments CT CHEST WO CONTRAST (GENERIC) Routine 02/03/2024 7:44 AM EDT Nonrheumatic aortic valve stenosis documented in this encounter Results * CT Chest wo Contrast (Generic) (02/03/2024 7:44 AM EDT) [employer] Signature WORKSTATION ID [id number] RAD Anatomical Region Laterality Modality Chest Computed [...] who have questions please contact the health medical care administrator that requested your imaging first. ? Electronically signed by: Rogerio Wright MD, [facility] ([phone]), at 02/03/2024 10:00 AM Narrative 02/03/2024 10:00 [...] nodule along the minor fissure (series 302 [id number]) and a 8 mm right lower lobe [...] patients who have questions please contactthe health medical care administrator that requested your imaging first. Electronically signed by: Rogerio Wright MD, [facility]([phone]), at 02/03/2024 10:00 AM Zak Farmer MD IMG CT ORDERABLES documented in this encounter Visit Diagnoses Diagnosis Nonrheumatic aortic valve stenosis Aortic valve disorders documented in this encounter Care Teams Economics Consultant Relationship Specialty Start Date End Date Vanessa Christian APRN PCP - General Family Medicine 10/21/23 documented as of this encounter
--- OUTSIDE RECORDS SUMMARY | 2024-05-22 08:42 | XMS_ITS | Encounter Summary ---
Author Organization [facility] [place] [address] Care Team Providers Care Case Coordinator Name Role Phone Vanessa Christian MAURI Primary Care Provider [phone] Encounter Details Date Type Department Care Team (Late st Contact Info) Description 01/10/2024 Orders Only [employer] [place] [place] [id number] Lawson Napoles PA [facility] [place] [address] Screening for cardiovascular condition; Aortic valve stenosis, [...] AM EDT Office Visit Cardiology at [address] [place] [phone] Neftali Ernandez MD [facility] C[facility] [place] [address] documented as of this encounter Visit Diagnoses Diagnosis Screening for cardiovascular condition Screening for other and unspecified cardiovascular conditions Aortic valve stenosis, etiology of cardiac valve disease unspecified documented in this encounter Care Teams Case Coordinator Relationship Specialty Start Date End Date Vanessa Christian APRN PCP - General Family Medicine 10/21/23 documented as of this encounter
--- OUTSIDE RECORDS SUMMARY | 2024-05-22 08:42 | XMS_ITS | Encounter Summary ---
Author Organization [facility] [place] [address] Care Team Providers Care Business Law Instructor Name Role Phone Vanessa Christian APRN Primary Care Provider [phone] Encounter Details Date Type Department Care Team (Late st Contact Info) Description 12/26/2023 Notes Only Cardiology at [address] [address] Neftali Ernandez MD [facility] [place] [address] Social History Tobacco Use Types Packs/Day Years [...] 1:37 PM EDT Echocardiogram images reviewed from [facility]. Indeed, the aortic valve appears severely stenotic. Cannotrule out bicuspid valve documented in this encounter Plan of Treatment Upcoming Encounters Date Type Department Care Team (Late st Contact Info) Description 05/27/2024 11:00 AM EDT Office Visit Cardiology at [address] [address] Neftali Ernandez MD [facility] [place] [address] documented as of this encounter Visit Diagnoses Not on filedocumented in this encounter Care Teams Business Law Instructor Relationship Specialty Start Date End Date Vanessa Christian APRN PCP - General Family Medicine 10/21/23 documented as of this encounter
--- OUTSIDE RECORDS SUMMARY | 2024-05-22 08:42 | XMS_ITS | Encounter Summary ---
Author Organization [facility] Address [facility] [place] [address] Care Team Providers Care Instrument Operator Name Role Phone Vanessa Christian SHOE TRIMMER Primary Care Provider [phone] Reason for Referral * Diagnostic Test (Routine) - Closed Specialty Diagnoses / Procedures Referred By Contac t Referred To Contact Radiology Diagnoses Nonrheumatic aortic valve stenosis Procedures CT Chest wo Contrast (Generic) Louisa Reid PA [facility] [place] [address] [facility] [place] [address] Referral ID Status Reason Start Date Expiration Date V isits Requested Visits Authorized [id number] Closed Specialty Service Requested 01/10/2024 07/11/2025 1 1 Encounter Details Date Type Department Care Team (Late st Contact Info) Description 01/09/2024 Orders [place] [address] Zak Farmer MD [facility] [place] [address] Nonrheumatic aortic valve stenosis Social History Tobacco [...] AM EDT Office Visit Cardiology at [address] [place] [address] Neftali Ernandez MD [facility] [place] [address] documented as of this encounter Results * CT Chest wo Contrast (Generic) (02/03/2024 7:44 AM EDT) [employer] WORKSTATION ID [id number] RAD Anatomical Region Laterality Modality Chest Computed [...] who have questions please contact the health medicare sales representative that requested your imaging first. ? Narrative [...] Skeletal structures: No significant findings. Procedure Note Rogeroi Wright MD - 02/03/2024 EXAMINATION: CT CHEST [...] nodule along the minor fissure (series 302 [id number]) and a 8 mm right lower lobe [...] patients who have questions please contactthe health medicare sales representative that requested your imaging first. Zak Farmer MD IMG CT ORDERABLES documented in this encounter Visit Diagnoses Diagnosis Nonrheumatic aortic valve stenosis Aortic valve disorders Nonrheumatic aortic valve stenosis Aortic valve disorders documented in this encounter Care Teams Instrument Operator Relationship Specialty Start Date End Date Vanessa Christian APRN PCP - General Family Medicine 10/21/23 documented as of this encounter
--- OUTSIDE RECORDS SUMMARY | 2024-05-22 08:42 | XMS_ITS | Encounter Summary ---
Author Organization [facility] [place] [address] Care Team Providers Care Legal Summer Intern Name Role Phone Vanessa Christian APRN Primary Care Provider [phone] Encounter Details Date Type Department Care Team (Late st Contact Info) Description 10/21/2023 Abstract Cardiology at [address] [phone] Adam Mayes RN Social History Tobacco Use [...] AM EDT Office Visit Cardiology at [address] [place] [address] Neftali Ernandez MD [facility] [place] [address] documented as of this encounter Visit Diagnoses Not on filedocumented in this encounter Care Teams Legal Summer Intern Relationship Specialty Start Date End Date Vanessa Christian APRN PCP - General Family Medicine 10/21/23 documented as of this encounter
--- OUTSIDE RECORDS SUMMARY | 2024-05-25 09:18 | XMS_ITS | Clinical Summary ---
Author Organization [facility] Address [address] [place] [address] Care Team Providers Care Classification Case Manager Name Role Phone Vanessa Christian NP Primary Care Provider [phone] Social History Tobacco Use Types Packs/Day Years [...] COVID-19 Vaccine (2022-24 season) 2023 Care Teams Classification Case Manager Relationship Specialty Start Date End Date Vanessa Christian NP [address] [place] [phone] PCP - General Family Medicine - Primary Care 10/07/23
--- OUTSIDE RECORDS SUMMARY | 2024-05-25 09:19 | XMS_ITS | Referral Summary ---
Author Organization [facility] Address [address] [place] [address] Care Team Providers Care Financial Legal Assistant Name Role Phone Filidayna Vanessa Sherman NP Primary Care Provider [phone] Social History Tobacco Use Types Packs/Day Years Used Date Smoking Tobacco: Never Assessed Sex and Gender Information Value Date Recorded Sex Assigned at Not on file Gender Identity Not on file Sexual Orientation Not on file Plan of Treatment Not on file Care Teams Financial Legal Assistant Relationship Specialty Start Date End Date Vanessa Christian NP [address] [place] [address] PCP - General Family Medicine - Primary Care 10/07/23
--- OUTSIDE RECORDS SUMMARY | 2024-05-25 09:19 | XMS_ITS | Encounter Summary ---
Author Organization [facility] Address [facility] [place] [address] Care Team Providers Care Assistant Tennis Professional Name Role Phone Vanessa Christian MAURI Primary Care Provider [phone] Encounter Details Date Type Department Care Team (Latest Contact Info) Description 05/20/2024 Travel Social History Tobacco Use Types Packs/Day Years Used Date Smoking Tobacco: Former Cigarettes Smokeless Tobacco: Never Comments:Quit 15 + years ago Alcohol Use Standard Drinks/Week Comments Yes 0 (1 standard drink = 0.6 oz pur e alcohol) rare [facility] Utilities Answer Date Recorded In the [...] place to sleep or slept in a intermediate (including now)? No 02/18/2024 [facility] IPV Inpatient [...] AM EDT Office Visit Cardiology at [address] [place] [address] Neftali Ernandez MD [facility] [place] [address] documented as of this encounter Visit Diagnoses Not on filedocumented in this encounter Care Teams Assistant Tennis Professional Relationship Specialty Start Date End Date Vanessa Christian APRN PCP - General Family Medicine 10/21/23 documented as of this encounter
--- OUTSIDE RECORDS SUMMARY | 2024-05-25 09:19 | XMS_ITS | Encounter Summary ---
[place] [address] Care Team Providers Care Chisel Mortiser Operator Name Role Phone Aparna Jordan MAURI Primary Care Provider [phone] Reason for Referral * Diagnostic Test (Routine) - New Request Specialty Diagnoses / Procedures Referred By Contac t Referred To Contact Cardiology Diagnoses S/P AVR Procedures Echocardiogram Transthoracic Neftali Menon PA [facility] [place] [address] [facility] [place] [address] Referral ID Status Reason Start Date Expiration Date Visits Requested Visits Authorized [id number] New Request Specialty Service Requested 02/24/2024 02/23/2025 1 1 * Consultation (Routine) - Authorized Specialty Diagnoses / Procedures Referred By Contac t Referred To Contact Cardiology Diagnoses S/P AVR Zak Graham MD [facility] [place] [address] Cardiac Rehab, [facility] [address] [place] [address] [place] [address] Referral ID Status Reason Start Date Expiration Date Visits Requested Visits Authorized [id number] Authorized Consult, Test & Treat 02/24/2024 08/22/2024 36 36 * Home Health Care (Routine) - Authorized Specialty Diagnoses / Procedures Referred By Sixto mendoza Referred To Contact Diagnoses S/P AVR Zak Graham MD [facility] [place] [address] Referral ID Status Reason Start Date Expiration Date Visits Requested Visits Authorized [id number] Authorized Consult, Test & Treat 02/24/2024 08/22/2024 [...] ARTERIAL GRAFT (WRVU 7.93) Zak Graham MD [facility] [place] [address] [facility] Referral ID Status Reason Start Date Expiration Date Visits Re quested Visits Authorized [id number] 1 1 Encounter Details Date Type Department Care Team (Latest Contact Info) Description 02/17/2024 5:43 AM EDT - 02/24/2024 11:23 AM EDT Hospital Encounter Heart and Vascular Unit Level 4 [place] [address] Zak Graham MD [facility] [place] [address] S/P AVR (Primary Dx); Aortic valve stenosis, etiology of cardiac valve disease unspecified Discharge Disposition: Home with VNA Social History Tobacco Use Types Packs/Day Years Used Date Smoking Tobacco: Former Cigarettes Smokeless Tobacco: Never Comments:Quit 15 + years ago Alcohol Use Standard Drinks/Week Comments Yes 0 (1 standard drink = 0.6 oz pur e alcohol) rare [facility] Utilities Answer Date Recorded In the [...] Patient Age: 63 y.o. Birthdate: 1960 Language: Stateless Race: White Ethnicity: Not nor Admit Date: 02/17/2024 Discharge Date: 02/24/24 Attending Physician: Zak Graham MD Follow-up Recommendations for Providers: Please continue routine management of cardiovascular risk factors including blood pressure, lipids,glucose, etc. Please note any changes to medications. Patient to follow up with PCP, Aparna Jordan APRN, in 1-2 weeks. Patient to follow up with Food And Nutrition Teacher, Neftali Ernandez MD , in 2 weeks. Patient to follow up with Cardiac Surgeon, Dr. Zak Graham, with a chest x-ray, EKG, and Echo. 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 Past Surgical History: Procedure Laterality Date PRO CABG, ARTERIAL, SINGLE N/A 02/17/2024 @CABG, USING ARTERIAL GRAFT;SINGLE ARTERIAL GRAFT (WRVU 33.75) performed by Zak Graham MD at [facility] MAIN OR PRO CABG, ARTERY-VEIN, TWO N/A 02/17/2024 @CABG, TWO VENOUS GRAFTS & ARTERIAL GRAFT (WRVU 7.93) performed by Zak Graham MD at [facility] MAIN OR PRO ENDOSCOPY W/VIDEO-ASST VEIN HARVEST, CABG Left 02/17/2024 ENDOSCOPIC HARVEST VEIN(S) FOR CABG (WRVU 0.31) performed by Zak Graham MD at [facility] MAIN OR PRO REPLACEMENT PROSTHETIC AORTIC VALVE OPEN W CARDIOPULMONARY BYPASS HOMOGRF/STENT N/A 02/17/2024 @REPLACE AORTIC VALVE, OPEN, W\CPB, W\PROSTHETIC VALVE (WRVU 41.32) performed by Zak Graham MD at [facility] MAIN OR Prior To Admission [...] insufficiency. He has glaucoma. He used to [place] until about 15 years ago. He has undergone prior herniorrhaphy. 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 Major Procedures/Operations: 02/17/24 s/p avr/cabgx3 CABG x 3 JOSE->LAD SVG->dRCA SVG->OM1 EVH from LLE AVR with a 23 mm Inspiris Bioprosthesis Hospital Course: Viraj Garcia was admitted to [facility] on 02/17/2024 via the Same Day [...] Zak Graham and/or the Cardiac Surgery Physician Exhaust Emissions Automotive Technician Team may be reached at . [...] Please refer to the card with the [place] [employer] Guidelines for more information. You [...] Dr. Zak Graham. You may use a [place] Track or treadmill but avoid any pulling [...] friends, go to a movie, go to scientology, etc. Heavy activities: No hunting, skiing, jogging, [...] should resume a low fat, low cholesterol, [place] Diet. Driving: No driving until [...] while being managed by your PCP and/or Food And Nutrition Teacher. For future medication refills, please refer to your PCP and/or Food And Nutrition Teacher after your discharge from our service. Thank you REMOVE CHEST TUBE SUTURES ON OR AFTER 03/02/24 Home oxygen therapy: N/A Follow up appointments: You should follow up with your PCP, Aparna Jordan APRN, in 1-2 weeks. Our office will schedule an appointment with your Food And Nutrition Teacher, Neftali Ernandez MD , in 2 weeks. You have an appointment with your Cardiac Surgeon, Dr. Zak Graham, 4 weeks with a chest x-ray, EKG, and Echo before your appointment. Cardiac Rehabilitation: Viraj Garcia was seen regarding participation in the outpatient Phase 2Cardiac Rehabilitation at [facility]. The patient agrees to a referral to this program. The referral will be sent at discharge and the patient should be contacted by the Program within 1- 2 weeks from discharge. Future Appointments and Orders Future Orders Complete By Expires Echocardiogram Transthoracic [39679 CPT(R)] 03/26/2024 09/25/2024 Process Instructions: Scheduling Instructions: Questions: Where will study be performed?: [facility] Does the patient have Congenital Heart Disease?: Does patient require sedation?: Sedation rationale: XR Chest PA & Lateral (Generic) [29073 63061 Custom] 03/26/2024 09/25/2024 Process Instructions: Scheduling Instructions: Questions: Portable exam?: Reason for exam and clinical history: s/p avr/cabg Clinical information / jerome questions for radiologist: Stat read required?: Date of injury if applicable: Requested Time: Where will study be performed?: [facility] Radiology Referral to Cardiac Rehab [UNN121 Custom] As directed Process Instructions: If no progress note charted, please enter Clinical details in comments. Scheduling Instructions: Questions: My question or request is: s/p AVR/CABG. Cardiac rehab at [facility]. Referral to Home Health [REF34 Custom] As directed Process Instructions: If no progress note charted, please enter Clinical details in comments. Scheduling Instructions: Comments: Please evaluate Viraj Garcia for admission to Home Health. [address] Phone Number: Date of : 1960 Inpatient DOCUMENTATION FOR VNA SERVICES (INCLUDING THOSE PATIENTS WITH MEDICARE COVERAGE REQUIRING HOME VNA SERVICES AND/OR HOSPICE SERVICES) PATIENT'S LOCATION: Viraj Garcia [address] [employer] [phone] Low Pressure Kettle Operator's Name: self/family In discussion with the attending physician, it is certified that this patient is under their care and that they, or a Nurse Practitioner, or Physician Exhaust Emissions Automotive Technician who is working directly with them, [...] for services as follows: HOME HEALTH AGENCY: [facility] [address] [place] [address] RN orders: Cardiopulmonary assessment, incisional assessment, assess [...] issues please call the Cardiology Office at [phone] FOR MEDICARE ONLY: (please delete this section [...] APRN [address] / [place] [address] . All VNA agencies which cover the area of patient's residence have been reviewed, either verbally or in writing, and patient/family have chosen the home health care agency noted. Questions: Disciplines Requested: Nursing Physical Therapy Arrangements for VNA/home care: As above. Signed: NEFTALI MENON PA-C [facility] Section of Cardiac Surgery [facility] [place] [address] FAX [phone] Date: 02/24/2024 CC: Aparna Jordan, MAURI Jordan, Aparna Sherman APRN [address] [place] [address] documented in this encounter Discharge Instructions * [...] Zak Graham and/or the Cardiac Surgery Physician Exhaust Emissions Automotive Technician Team may be reached at . [...] Please refer to the card with the [place] [employer] Guidelines for more information. You [...] Dr. Zak Graham. You may use a [place] Track or treadmill but avoid any pulling [...] friends, go to a movie, go to scientology, etc. Heavy activities: No hunting, skiing, jogging, [...] should resume a low fat, low cholesterol, [place] Diet. Driving: No driving until [...] while being managed by your PCP and/or Food And Nutrition Teacher. For future medication refills, please refer to your PCP and/or Food And Nutrition Teacher after your discharge from our service. Thank you REMOVE CHEST TUBE SUTURES ON OR AFTER 03/02/24 Home oxygen therapy: N/A Follow up appointments: You should follow up with your PCP, Aparna Jordan APRN, in 1-2 weeks. Our office will schedule an appointment with your Food And Nutrition Teacher, Neftali Ernandez MD , in 2 weeks. You have an appointment with your Cardiac Surgeon, Dr. Zak Graham, 4 weeks with a chest x-ray, EKG, and Echo before your appointment. Cardiac Rehabilitation: Viraj Garcia was seen regarding participation in the outpatient Phase 2Cardiac Rehabilitation at [facility]. The patient agrees to a referral to [...] 0600 and on the weekends please page [phone]. * Eric Barahona PA - 02/23/2024 9:27 [...] 0600 and on the weekends please page [phone]. * Tiffanie Owens - 02/22/2024 2:48 PM [...] Pt reports his dtr is coming from [place] to stay upon d/c for 10 days. 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 He works Precautions/Special Considerations: STERNAL [...] LRAD and supervision Time IN / OUT: 6783-3398 Total Time: 30 minutes; TEFx2 Tiffanie Owens Pager: [phone] Physical Therapy Inpatient Rehabilitation Department * Romeo [...] 0600 and on the weekends please page [phone]. * Kelley Hinson PTA - 02/21/2024 10:15 [...] Pt reports his dtr is coming from [place] to stay upon d/c for 10 days. 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 * Kelley Hinson PTA - 02/20/2024 3:32 [...] at that time Kelley Hinson PTA Pager: [phone] Physical Therapy Inpatient Rehab Department * Louisa [...] 0600 and on the weekends please page [phone]. * Chrystal Benavides, PT - 02/19/2024 11:22 [...] Pt reports his dtr is coming from [place] to stay upon d/c for 10 days. 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 Precautions/Special Considerations: STERNAL [...] outlined inthis evaluation. CHRYSTAL BENAVIDES, PT Pager: [phone] Physical Therapy Inpatient Rehabilitation Department Time IN / OUT: 2549-0577 Total Time: 38 (eval) minutes; * Antonio [...] 0600 and on the weekends please page [phone]. * Minnie Begum PA - 02/18/2024 8:25 [...] site CDI with KEVYN wrap Tubes/Lines/Drains: RIJ/PAC, [place], Med Ctx, L pleural CT, TPW, Naqvi [...] 0600 and on the weekends please page [phone]. * Kim Ha COMPUTER LAB PARA PROFESSIONAL - 02/17/2024 2:25 PM EDT Respiratory Care [...] plan since last visit. Zak Graham MD [phone] Source Note - Zak Graham MD - [...] given written informed consent. Zak Graham MD [phone] * Zak Graham MD - 02/17/2024 7:00 [...] given written informed consent. Zak Graham MD [phone] documented in this encounter Miscellaneous Notes * [...] information for follow-up Home Health & Hospice, [address] [place] [address] Cardiac Rehab, [address] [place] [address] Transportation: family or friend will provide Functional status prior to admission: Independent Home Environment: Others in the home: alone. Current Living Arrangements: home/apartment/condo. Accessibility Concerns:a few steps to enter 1 floor home. Current Functional Ability: Assistive Person and Equipment DME used at home: none DME Needed at Discharge: N/A Patient is insured through: Primary Insurance: [facility] Payor: [facility] / Plan: [facility] PPO / Product Type: *No [...] managed with scheduled Tylenol. 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 Ambulated in the roque multiple times during [...] [facility] Payor: [facility] / Plan: [facility] PPO / Product Type: *No Product type* / Secondary Insurance: N/A Last Physical Therapy Recommendation: home with home health (Str coming to stay for a week or two upon d/c) with to be determined (owns rolling walker, shower seat) Plan for discharge is: Home w/ Services Outpatient Agency/Support Group Needs: Homecare agency Home Health Services: Physical Therapy, Registered Nurse Agency Referrals: [facility] [address] [place] [id number] Transportation: family or friend will provide Barriers to discharge: Discharge planning Plan going forward: Service Care Management will continue to follow and assist with discharge planning and coordination of care as indicated. Anticipated Date of Discharge: 02/22/2024 Rhett Bell RN RN/CM - Cellphone: [phone] Pager: [phone] Covering Service RN/CM * Plan of Care [...] Yang RN - 02/19/2024 10:44 AM EDT [facility] Viraj Garcia was seen today regarding participation in the outpatient Phase 2 Cardiac Rehabilitation at [facility]. 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 (Only good for 180 days) Any patient receiving care in [place] must abide by [place] law. The hierarchy for surrogate decision making [...] (i) The agent with financial power of outside sales consultant or a conservator appointed in accordance with [...] steady place to sleep or slept in [facility] (including now)?: No In the past 12 months has the electric, gas, oil, or water [employer] threatened to shut off services in your [...] Home Address confirmed as: [address] [facility] [address] Physical address: [address] [facility], [address] Social & Family Supports: All names listed [...] [facility] Payor: [facility] / Plan: [facility] PPO / Product Type: *No Product type* / Secondary Insurance: N/A ; Prescription Coverage: Yes Preferred Pharmacy: [id number] [address] [place] Status: Patient is a : No Primary Care Provider confirmed: Aparna Jordan, MAURI [phone] Patient/Caregiver Goals of Treatment: dc to home Potential Needs for Transition of Care: home health care Agency Referrals: I have met with the patient to: discuss discharge planning needs. provide the [facility], Office of Care Management letter from the Qa Specialist pertaining to rehab referrals. provide a letter describing our affiliations within the [facility] and educate about their right to choose where referrals are sent. provide a list of Home Health Agencies / Durable Medical Equipment vendors which serve their preferred geographic area. provided patient with [facility] Star Quality Rating handout. They have requested referrals to: [facility] [address] [place] [address] Note routed to a Communications Administrator who will communicate referrals to facilities and [...] daughter, Cielo, will be coming in from [place] on 02/18, to stay with him , [...] Reina Greene RN CM, BSN, CMGT-BC Ext [phone] * Plan of Care - Binta Trinidad [...] Operative Note Patient Name: Viraj Garcia : [id number] MR#: [id number] Case Date: 02/17/2024 Surgeon: Surgeon(s) and Role: * Zak Graham MD - Primary * Neftali Menon PA - Physician Exhaust Emissions Automotive Technician Preoperative diagnosis: CAD Postoperative diagnosis: CAD, [...] Drains: Mediastinal and Left pleural Disposition: [facility] Condition: doing well without problems Attestation: Case Date: 02/17/2024 I performed this procedure without the involvement of a resident. ZAK GRAHAM MD 02/17/2024 * Op Note - Zak Graham MD - 02/17/2024 8:20 AM EDT [facility] Operative Note Patient Name: Viraj Garcia : [id number] MR#: [id number] Case Date: 02/17/2024 Surgeon: Surgeons and Role: * Zak Graham MD - Primary * Neftali Menon PA - Physician Exhaust Emissions Automotive Technician Preoperative diagnosis: CAD Postoperative diagnosis: CAD, [...] Drains: Mediastinal and Left pleural Disposition: [facility] Procedure Description: The patient was brought [...] AM EDT Office Visit Cardiology at [address] [id number] Neftali Ernandez MD [facility] [place] [address] Scheduled Orders Name Type Priority Associated Diagnoses [...] Aortic Valve Open W Cardiopulmonary Bypass Homogrf/Stent (01352) Yes 02/17/2024 7:28 AM EDT CAD Cabg, Artery-Vein, Two ([id number]) Yes 02/17/2024 7:28 AM EDT CAD Cabg, Arterial, Single (57531) Yes 02/17/2024 7:28 AM EDT CAD Endoscopy W/Video-Asst Vein [place], Cabg ([id number]) Yes 02/17/2024 7:28 AM EDT CAD POCT GLUCOSE Routine 02/17/2024 6:38 AM EDT TRANSESOPHAGEAL ECHOCARDIOGRAM IN THE OR Routine 02/17/2024 6:33 AM EDT Aortic valve stenosis, etiology of cardiac valve disease unspecified LAB SCAN 02/17/2024 12:00 AM EDT IMPLANTABLE DEVICES SCAN 02/17/2024 12:00 AM EDT documented in this encounter Results * Potassium (02/24/2024 4:42 AM EDT) Potassium 4.0 3.5 - 5.0 mmol/L [facility] Comment: Please note: ??Patients with WBC >100,000 may have falsely elevated Potassium levels. ??For accurate Potassium quantification in these patients send serum separator tube (gold top) for subsequent determinations. ??Contact the Clinical Chemistry Laboratory if there are any questions. Blood 02/24/2024 4:42 AM EDT 02/24/2024 4:59 AM EDT Narrative Resulting Agency Comment Spec In Lab Zak Graham MD CHEMISTRY ORDERABLE S [facility] [place] [address] * (ABNORMAL) Basic Metabolic Panel (non-fasting) (02/23/2024 4:24 AM EDT) Glucose 117 65 - 199 mg/dL [facility] Comment:Diabetes: >=200 mg/d L plus symptoms Blood Urea Nitrogen 18 10 - 20 mg/dL [facility] Creatinine 0.71(L) 0.80 - 1.50 mg/dL [facility] Sodium 138 135 - 145 mmol/L [facility] Potassium 4.4 3.5 - 5.0 mmol/L [facility] Comment: Please note: ??Patients with WBC >100,000 may have falsely elevated Potassium levels. ??For accurate Potassium quantification in these patients send serum separator tube (gold top) for subsequent determinations. ??Contact the Clinical Chemistry Laboratory if there are any questions. Chloride 101 98 - 107 mmol/L [facility] Carbon Dioxide 26 22 - 31 mmol/L [facility] Anion Gap 11 5 - 15 mmol/L [facility] Calcium 8.8 8.5 - 10.5 mg/dL [facility] Est Glomerular Filtration Rate 102 >=60 mL/min/1. 73 m?? [facility] Comment: This patient's estimated GFR [...] Lab Romeo Carpio MD CHEMISTRY ORDERABLES [facility] [place] [address] * Potassium (02/22/2024 4:30 AM EDT) Potassium 3.5 3.5 - 5.0 mmol/L [facility] Comment: Please note: ??Patients with WBC >100,000 may have falsely elevated Potassium levels. ??For accurate Potassium quantification in these patients send serum separator tube (gold top) for subsequent determinations. ??Contact the Clinical Chemistry Laboratory if there are any questions. Blood 02/22/2024 4:30 AM EDT 02/22/2024 5:12 AM EDT Narrative Resulting Agency Comment Spec In Lab Zak Graham MD CHEMISTRY ORDERABLE S [facility] [place] [address] * (ABNORMAL) Basic Metabolic Panel (non-fasting) (02/21/2024 9:45 AM EDT) Glucose 123 65 - 199 mg/dL [facility] Comment:Diabetes: >=200 mg/d L plus symptoms Blood Urea Nitrogen 22(H) 10 - 20 mg/dL [facility] Creatinine 0.78(L) 0.80 - 1.50 mg/dL [facility] Sodium 140 135 - 145 mmol/L [facility] Potassium 3.9 3.5 - 5.0 mmol/L [facility] Comment: Please note: ??Patients with WBC >100,000 may have falsely elevated Potassium levels. ??For accurate Potassium quantification in these patients send serum separator tube (gold top) for subsequent determinations. ??Contact the Clinical Chemistry Laboratory if there are any questions. Chloride 100 98 - 107 mmol/L [facility] Carbon Dioxide Not Perf 22 - 31 [facility] Comment:Add-on request. Yolanda le too old to perform test. Anion Gap Unable to Calculate 5 - 15 mmol/L [facility] Calcium 8.6 8.5 - 10.5 mg/dL [facility] Est Glomerular Filtration Rate 100 >=60 mL/min/1 .73 m?? [facility] Comment: This patient's estimated GFR [...] Carpio MD CHEMISTRY ORDERABLES Performing Organization Address City/[facility]/ZIP Co de Phone Number [facility] [place] [address] * Lactate, whole blood, send to lab ([facility]) (02/21/2024 9:45 AM EDT) [facility] Lactate WB 2.0 0.5 - 2.2 mmol/L [facility] Blood 02/21/2024 9:45 AM EDT 02/21/2024 9:52 AM EDT Narrative Resulting Agency Comment Spec In Lab Zak Graham MD CHEMISTRY ORDERABLE S Performing Organization Address [facility] Co de Phone Number [facility] [place] [address] * (ABNORMAL) Hepatic Function Panel (02/21/2024 9:45 AM EDT) [facility] Protein, Total 5.7(L) 6.1 - 8.0 g/dL [facility] Albumin 3.3 3.2 - 5.2 g/dL [facility] Aspartate Aminotransferase 13 0 - 39 unit/L [facility] Alanine Aminotransferase 16 0 - 55 unit/L [facility] Alkaline Phosphatase 63 40 - 130 unit/L [facility] Bilirubin, Total 0.6 0.2 - 1.3 mg/dL [facility] Bilirubin, Direct 0.2 0.0 - 0.3 mg/dL [facility] Blood 02/21/2024 9:45 AM EDT 02/21/2024 9:52 AM EDT Narrative Resulting Agency Comment Spec In Lab Zak Graham MD CHEMISTRY ORDERABLE S [facility] [place] [address] * Lipase (02/21/2024 9:45 AM EDT) Lipase 56 0 - 60 unit/L [facility] Blood 02/21/2024 9:45 AM EDT 02/21/2024 9:52 AM EDT Narrative Resulting Agency Comment Spec In Lab Zak Graham MD CHEMISTRY ORDERABLE S [facility] [place] [address] * Amylase (02/21/2024 9:45 AM EDT) Amylase 69 28 - 100 unit/L [facility] Blood 02/21/2024 9:45 AM EDT 02/21/2024 9:52 AM EDT Narrative Resulting Agency Comment Spec In Lab Zak Graham MD CHEMISTRY ORDERABLE S Performing Organization Address [facility]/ZIP Co de Phone Number [facility] [place] [address] * Potassium (02/21/2024 3:08 AM EDT) Potassium 3.8 3.5 - 5.0 mmol/L [facility] Comment: Please note: ??Patients with WBC >100,000 may have falsely elevated Potassium levels. ??For accurate Potassium quantification in these patients send serum separator tube (gold top) for subsequent determinations. ??Contact the Clinical Chemistry Laboratory if there are any questions. Blood 02/21/2024 3:08 AM EDT 02/21/2024 3:28 AM EDT Narrative Resulting Agency Comment Spec In Lab Zak Graham MD CHEMISTRY ORDERABLE S [facility] [place] [address] * XR Chest PA & Lateral (Generic) (02/20/2024 10:19 AM EDT) WORKSTATION ID [id number] RAD Anatomical Region Laterality Modality Chest N/A Digital Radiogra phy Impressions 02/20/2024 1:11 PM EDT Small pleural effusions. No pneumothorax Thank you for letting us participate in the care of this patient. ??If you are a health care provider and have any questions regarding this report, please contact the number below. ??For patients who have questions please contact the health critical care physician assistant that requested your imaging first. ? Electronically signed by: Rogerio Cruz MD, [facility] ??([phone]), at 02/20/2024 1:11 PM Narrative 02/20/2024 1:11 PM EDT EXAMINATION: XR CHEST PA AND LATERAL (GENERIC) CLINICAL HISTORY: s/p AVR/CABGx3 TECHNIQUE: PA and lateral views of the chest COMPARISON: 02/17/2024 FINDINGS: Support devices: Interval removal of Jeffers-Kaila catheter, endotracheal tube and mediastinal chest tubes The cardiac silhouette is stable status post median sternotomy, CABG and aortic valve replacement. There are small pleural effusions. No pneumothorax. Procedure Note Rogerio Cruz MD - 02/20/2024 EXAMINATION: XR CHEST PA AND LATERAL (GENERIC) CLINICAL HISTORY: s/p AVR/CABGx3 TECHNIQUE: PA and lateral views of the chest COMPARISON: 02/17/2024 FINDINGS: Support devices: Interval removal of Jeffers-Kaila catheter, endotracheal tubeand mediastinal chest tubes The [...] have questions please contactthe health critical care physician assistant that requested your imaging first. Electronically signed by: Rogerio Cruz MD, [facility]([phone]), at 02/20/2024 1:11 PM Zak Graham MD IMG DX ORDERABLES * Scan, Peripheral Blood (02/20/2024 4:23 AM EDT) Pathologist [facility] Plat estimate Decreased [facility] RBC Morphology Normal [facility] Blood 02/20/2024 4:23 AM EDT 02/20/2024 4:42 AM EDT Narrative Resulting Agency Comment Spec In Lab Minnie FRENCH HEMATOLOGY CECILIO ALEMAN [facility] [place] [address] * (ABNORMAL) Differential, Automated (02/20/2024 4:23 AM EDT) [facility] Neutrophil % 81.7 % [facility] Neutrophil Absolute 10.37(H) 1.70 - 6.10 x10(3)/mc L [facility] Lymph % 7.4 % [facility] Lymphocytes Abs 0.9 0.9 - 3.2 x10(3)/mc L [facility] Monocyte % 9.7 % [facility] Monocyte Abs 1.2(H) 0.3 - 0.9 x10(3)/mc L [facility] Eos % 0.1 % [facility] Eosinophils Abs 0.0 0.0 - 0.4 x10(3)/mc L [facility] Basophil % 0.2 % [facility] Baso Absolute 0.0 0.0 - 0.1 x10(3)/mc L [facility] Immature Gran % 0.90 % [facility] Comment: Immature granulocytes(IG's)percentage and absolute count will include metamyelocytes, myelocytes, and promyelocytes. Blood smears from CBCs yielding IG's will be scanned manually for concordance. If this scan disagrees with the automated IG or if promyelocytes are noted, a manual differential will be performed. Immature Gran Absolute 0.12(H) 0.00 - 0.04 x10(3)/ L [facility] Blood 02/20/2024 4:23 AM EDT 02/20/2024 4:42 AM EDT Narrative Resulting Agency Comment Spec In Lab Minnie FRENCH HEMATOLOGY CECILIO ALEMAN [facility] [place] [address] * (ABNORMAL) Hemogram (02/20/2024 4:23 AM EDT) White Blood Cell 12.7(H) 4.0 - 9.5 x10(3)/ L [facility] Red Blood Cell 4.26(L) 4.58 - 5.54 x10(6)/mc L [facility] Hemoglobin 12.3(L) 13.7 - 16.5 g/dL [facility] Hematocrit 37.1(L) 40.5 - 48.5 % [facility] Mean Cell Volume 87.1 82.9 - 93.1 fL [facility] Mean Cell Hemoglobin 28.9 27.5 - 32.1 pg [facility] Mean Cell Hemoglobin Concentration 33.2 32.0 - 35.7 g/dL [facility] Platelet 88(L) 145 - 357 x10(3)/ L [facility] RDW Standard Deviation 43.5 36.0 - 45.0 fL [facility] RDW coefficient of variation 13.7 11.4 - 13.8 % [facility] Mean Platelet Volume 10.2 7.6 - 12.9 fL [facility] NRBC% auto 0.0 % [facility] NRBC Absolute 0.000 0.000 - 0.000 x10(3)/mc L [facility] Blood 02/20/2024 4:23 AM EDT 02/20/2024 4:42 AM EDT Narrative Resulting Agency Comment Spec In Lab Minnie FRENCH HEMATOLOGY ORDE ASH [facility] [place] [address] * (ABNORMAL) Basic Metabolic Panel (non-fasting) (02/20/2024 4:23 AM EDT) Glucose 113 65 - 199 mg/dL [facility] Comment:Diabetes: >=200 mg/d L plus symptoms Blood Urea Nitrogen 20 10 - 20 mg/dL [facility] Comment:result rechecked-[place] Creatinine 0.71(L) 0.80 - 1.50 mg/dL [facility] Sodium 135 135 - 145 mmol/L [facility] Potassium 3.9 3.5 - 5.0 mmol/L [facility] Comment: Please note: ??Patients with WBC >100,000 may have falsely elevated Potassium levels. ??For accurate Potassium quantification in these patients send serum separator tube (gold top) for subsequent determinations. ??Contact the Clinical Chemistry Laboratory if there are any questions. Chloride 102 98 - 107 mmol/L [facility] Carbon Dioxide 25 22 - 31 mmol/L [facility] Anion Gap 8 5 - 15 mmol/L [facility] Calcium 8.7 8.5 - 10.5 mg/dL [facility] Comment:result rechecked-[place] Est Glomerular Filtration Rate 102 >=60 mL/min/1. 73 m?? [facility] Comment: This patient's estimated GFR [...] CHEMISTRY ORDERABLE S Performing Organization Address [facility] Co de Phone Number [facility] [place] [address] * Potassium (02/19/2024 3:57 AM EDT) Potassium 4.3 3.5 - 5.0 mmol/L [facility] Comment: Please note: ??Patients with [...] CHEMISTRY ORDERABLE S Performing Organization Address [facility] Co de Phone Number [facility] [place] [address] * POCT Glucose (02/18/2024 8:24 AM EDT) Glucose, POC 157 65 - 199 mg/dL [facility] Comment: Supplemental ranges: <140 mg/dL before meals <180 mg/dL all other times of the day Blood 02/18/2024 8:24 AM EDT 02/18/2024 8:24 AM EDT Zak Graham MD POINT OF CARE TEST ORDERABLES [facility] [place] [address] * Scan, Peripheral Blood (02/18/2024 1:40 AM EDT) Plat estimate Decreased [facility] RBC Morphology Normal [facility] Blood 02/18/2024 1:40 AM EDT 02/18/2024 1:56 AM EDT Narrative Resulting Agency Comment Spec In Lab Neftali FRENCH HEMATOLOGY ORDER OLE Performing Organization Address City/[facility]/ZIP Co de Phone Number [facility] [place] [address] * (ABNORMAL) Differential, Automated (02/18/2024 1:40 AM EDT) [facility] Neutrophil % 87.1 % [facility] Neutrophil Absolute 15.03(H) 1.70 - 6.10 x10(3)/mc L [facility] Lymph % 3.0 % [facility] Lymphocytes Abs 0.5(L) 0.9 - 3.2 x10(3)/mc L [facility] Monocyte % 9.1 % [facility] Monocyte Abs 1.6(H) 0.3 - 0.9 x10(3)/mc L [facility] Eos % 0.0 % [facility] Eosinophils Abs 0.0 0.0 - 0.4 x10(3)/mc L [facility] Basophil % 0.2 % [facility] Baso Absolute 0.0 0.0 - 0.1 x10(3)/mc L [facility] Immature Gran % 0.60 % [facility] Comment: Immature granulocytes(IG's)percentage and absolute count will include metamyelocytes, myelocytes, and promyelocytes. Blood smears from CBCs yielding IG's will be scanned manually for concordance. If this scan disagrees with the automated IG or if promyelocytes are noted, a manual differential will be performed. Immature Gran Absolute 0.10(H) 0.00 - 0.04 x10(3)/mc L [facility] Blood 02/18/2024 1:40 AM EDT 02/18/2024 1:56 AM EDT Narrative Resulting Agency Comment Spec In Lab Neftali FRENCH HEMATOLOGY ORDER OLE [facility] [place] [address] * (ABNORMAL) Hemogram (02/18/2024 1:40 AM EDT) White Blood Cell 17.2(H) 4.0 - 9.5 x10(3)/mc L [facility] Red Blood Cell 4.71 4.58 - 5.54 x10(6)/mc L [facility] Hemoglobin 13.7 13.7 - 16.5 g/dL [facility] Hematocrit 39.2(L) 40.5 - 48.5 % [facility] Mean Cell Volume 83.2 82.9 - 93.1 fL [facility] Mean Cell Hemoglobin 29.1 27.5 - 32.1 pg [facility] Mean Cell Hemoglobin Concentration 34.9 32.0 - 35.7 g/dL [facility] Platelet 147 145 - 357 x10(3)/mc L [facility] RDW Standard Deviation 39.9 36.0 - 45.0 [facility] RDW coefficient of variation 13.2 11.4 - 13.8 % [facility] Mean Platelet Volume 9.9 7.6 - 12.9 [facility] NRBC% auto 0.0 % [facility] NRBC Absolute 0.000 0.000 - 0.000 x10(3)/mc L [facility] Blood 02/18/2024 1:40 AM EDT 02/18/2024 1:56 AM EDT Narrative Resulting Agency Comment Spec In Lab Neftali FRENCH HEMATOLOGY ORDER OLE [facility] [place] [address] * (ABNORMAL) Basic Metabolic Panel (non-fasting) (02/18/2024 1:40 AM EDT) Glucose 176 65 - 199 mg/dL [facility] Comment:Diabetes: >=200 mg/d L plus symptoms Blood Urea Nitrogen 10 10 - 20 mg/dL [facility] Creatinine 0.65(L) 0.80 - 1.50 mg/dL [facility] Sodium 135 135 - 145 mmol/L [facility] Potassium 4.2 3.5 - 5.0 mmol/L [facility] Comment: Please note: ??Patients with WBC >100,000 may have falsely elevated Potassium levels. ??For accurate Potassium quantification in these patients send serum separator tube (gold top) for subsequent determinations. ??Contact the Clinical Chemistry Laboratory if there are any questions. Chloride 106 98 - 107 mmol/L [facility] Carbon Dioxide 20(L) 22 - 31 mmol/L [facility] Anion Gap 9 5 - 15 mmol/L [facility] Calcium 7.6(L) 8.5 - 10.5 mg/dL [facility] Est Glomerular Filtration Rate 105 >=60 mL/min/1. 73 m?? [facility] Comment: This patient's estimated GFR [...] Lab Zak Graham MD CHEMISTRY ORDERABLE S [facility] [place] [address] * (ABNORMAL) Troponin (02/18/2024 1:40 AM EDT) Troponin-T, High Sensitivity 342(H) <=22 ng/L [facility] Comment: This patient's troponin T [...] can be found in the [facility] Test Catalog Troponin - [facility] Test Catalog Reference: Fourth [place] Definition of Myocardial Infarction. Journal of the [place] [employer] 2018;72:6708-8466 Blood 02/18/2024 1:40 AM EDT 02/18/2024 1:56 AM EDT Narrative Resulting Agency Comment Spec In Lab Zak Graham MD CHEMISTRY ORDERABLE S Performing Organization Address [facility] Co de Phone Number [facility] [place] [address] * POCT Glucose (02/17/2024 8:13 PM EDT) Glucose, POC 142 65 - 199 mg/dL [facility] Comment: Supplemental ranges: <140 mg/dL before meals <180 mg/dL all other times of the day Blood 02/17/2024 8:13 PM EDT 02/17/2024 8:13 PM EDT Zak Graham MD POINT OF CARE TEST ORDERABLES Performing Organization Address [facility] Co de Phone Number [facility] [place] [address] * POCT Glucose (02/17/2024 5:42 PM EDT) Glucose, POC 160 65 - 199 mg/dL [facility] Comment: Supplemental ranges: <140 mg/dL before meals <180 mg/dL all other times of the day Blood 02/17/2024 5:42 PM EDT 02/17/2024 5:42 PM EDT Zak Graham MD POINT OF CARE TEST ORDERABLES Performing Organization Address [facility] Co de Phone Number [facility] [place] [address] * Hemoglobin (02/17/2024 5:42 PM EDT) Hemoglobin 13.7 13.7 - 16.5 g/dL [facility] Blood 02/17/2024 5:42 PM EDT 02/17/2024 6:10 PM EDT Narrative Resulting Agency Comment Spec In Lab Zak Graham MD HEMATOLOGY ORDERABL ES Performing Organization Address [facility]/ZIP Co de Phone Number [facility] [place] [address] * Potassium (02/17/2024 5:42 PM EDT) Pathologist [facility] Potassium 4.3 3.5 - 5.0 mmol/L [facility] Comment: Please note: ??Patients with [...] CHEMISTRY ORDERABLE S Performing Organization Address [facility] Co de Phone Number [facility] [place] [address] * (ABNORMAL) BLOOD GAS 2 ARTERIAL (02/17/2024 4:18 PM EDT) pH, Arterial 7.34(L) 7.35 - 7.45 [facility] PCO2, Arterial 40 35 - 45 mmHg [facility] PO2, Arterial 78(L) 85 - 104 mmHg [facility] Bicarbonate, Arterial 20.8 20.0 - 26.0 mmol/L [facility] Base Excess, Arterial -5.1(L) -3.0 - 3.0 mmol/L [facility] Hgb Blood Gas 14.6 13.7 - 16.5 g/dL [facility] Oxyhemoglobin, Arterial 93.0(L) 94.0 - 97.0 % [facility] Carboxyhemoglob in, Arterial 0.3 % [facility] Comment: Nonsmokers: 0.5-1.5% COHB Smokers: Variable, but usually less than 10% Toxic: 20-30% COHB Lethal: Greater than 60% COHB Methemoglobin, Arterial 0.8 <=1.5 % [facility] Na Whole Blood 136 135 - 145 mmol/L [facility] K Whole Blood 4.1 3.5 - 5.0 mmol/L [facility] Comment: Please note: Patients with WBC >100,000 may have falsely elevated Potassium levels. Contact the Clinical Chemistry Laboratory if there are any questions. ICa Whole Blood 1.10(L) 1.15 - 1.33 mmol/L [facility] Comment: Note: ??Total bilirubin higher than 20 mg/dL may lead to falsely low ionized calcium. CL Whole Blood 105 98 - 107 mmol/L [facility] Gluc Whole Bld 159 65 - 199 mg/dL [facility] Comment:Diabetes: >=200 mg/d L plus symptoms. Lactate WB 1.2 0.5 - 2.2 mmol/L [facility] FIO2 Art 40 % [facility] PF Ratio Art [address] [facility] Blood 02/17/2024 4:18 PM EDT 02/17/2024 4:18 PM EDT Zak Graham MD POINT OF CARE TEST ORDERABLES Performing Organization Address City/State/[facility] Co de Phone Number [facility] [place] [address] * XR Chest One View (02/17/2024 1:44 PM EDT) [employer] WORKSTATION ID [id number] RAD Anatomical Region Laterality Modality Chest N/A Digital Radiogra phy Impressions 02/17/2024 2:12 PM EDT 1. ??No definite pleural fluid collection or pneumothorax. 2. ??Right IJ Jeffers-Kaila catheter tip terminates in a descending branch [...] questions please contact the health critical care physician assistant that requested your imaging first. ? Electronically signed by: Denzel Hankins MD, [facility] ??([phone]), at 02/17/2024 2:12 PM Narrative 02/17/2024 2:12 PM EDT EXAMINATION: XR CHEST ONE VIEW CLINICAL HISTORY: s/p avr/cabg eval effusions TECHNIQUE: 1 view of the chest COMPARISON: Chest x-ray 01/09/2024, chest CT 02/03/2024 FINDINGS: ET tube tip terminates 5.2 cm above the carlos. Right IJ Jeffers-Kaila catheter tip terminates in a descending branch [...] 5.2 cm above the carlos. Right IJ Jeffers-Ganzcatheter tip terminates in a descending branch of [...] fluid collection or pneumothorax. 2. Right IJ Jeffers-Kaila catheter tip terminates in a descending branch ofthe right pulmonary artery. Suggest catheter retraction. 3. Additional support lines and tubes as above. Thank you for letting us participate in the care of this patient. If youare a health care provider and have any questions regarding this report,please contact the number below. For patients who have questions please contactthe health critical care physician assistant that requested your imaging first. Electronically signed by: Denzel Hankins MD, [facility]([phone]), at 02/17/2024 2:12 PM Zak Graham MD IMG DX ORDERABLES * (ABNORMAL) BLOOD GAS 2 ARTERIAL (02/17/2024 1:31 PM EDT) pH, Arterial 7.35 7.35 - 7.45 [facility] PCO2, Arterial 39 35 - 45 mmHg [facility] PO2, Arterial 320(H) 85 - 104 mmHg [facility] Bicarbonate, Arterial 21.4 20.0 - 26.0 mmol/L [facility] Base Excess, Arterial -4.2(L) -3.0 - 3.0 mmol/L [facility] Hgb Blood Gas 14.1 13.7 - 16.5 g/dL [facility] Oxyhemoglobin, Arterial 97.9(H) 94.0 - 97.0 % [facility] Carboxyhemoglob in, Arterial 0.3 % [facility] Comment: Nonsmokers: 0.5-1.5% COHB Smokers: Variable, but usually less than 10% Toxic: 20-30% COHB Lethal: Greater than 60% COHB Methemoglobin, Arterial 0.7 <=1.5 % [facility] Na Whole Blood 137 135 - 145 mmol/L [facility] K Whole Blood 4.2 3.5 - 5.0 mmol/L [facility] Comment: Please note: Patients with WBC >100,000 may have falsely elevated Potassium levels. Contact the Clinical Chemistry Laboratory if there are any questions. ICa Whole Blood 1.13(L) 1.15 - 1.33 mmol/L [facility] Comment: Note: ??Total bilirubin higher than 20 mg/dL may lead to falsely low ionized calcium. CL Whole Blood 108(H) 98 - 107 mmol/L [facility] Gluc Whole Bld 136 65 - 199 mg/dL [facility] Comment:Diabetes: >=200 mg/d L plus symptoms. Lactate WB 1.1 0.5 - 2.2 mmol/L [facility] FIO2 Art 100 % [facility] PF Ratio Art [address] [facility] Blood 02/17/2024 1:31 PM EDT 02/17/2024 1:31 PM EDT Zak Graham MD POINT OF CARE TEST ORDERABLES [facility] [place] [address] * (ABNORMAL) Coox2 (02/17/2024 1:21 PM EDT) pO2, Coox 44 mmHg [facility] Hgb Blood Gas 13.1(L) 13.7 - 16.5 g/dL [facility] Oxyhemoglobin, Coox 76.4 % [facility] Carboxyhemoglo bin, Coox 0.3 % [facility] Comment: Nonsmokers: 0.5-1.5% COHB Smokers: Variable, but usually less than 10% Toxic: 20-30% COHB Lethal: Greater than 60% COHB Methemoglobin, Coox 0.8 <=1.5 % [facility] Source Coox Mixed Venous [facility] Blood 02/17/2024 1:21 PM EDT 02/17/2024 1:21 PM EDT Zak Graham MD POINT OF CARE TEST ORDERABLES [facility] [place] [address] * (ABNORMAL) BLOOD GAS 2 ARTERIAL (02/17/2024 12:14 PM EDT) pH, Arterial 7.39 7.35 - 7.45 [facility] PCO2, Arterial 40 35 - 45 mmHg [facility] PO2, Arterial 338(H) 85 - 104 mmHg [facility] Bicarbonate, Arterial 23.7 20.0 - 26.0 mmol/L [facility] Base Excess, Arterial -1.3 -3.0 - 3.0 mmol/L [facility] Hgb Blood Gas 11.0(L) 13.7 - 16.5 g/dL [facility] Oxyhemoglobin, Arterial 98.8(H) 94.0 - 97.0 % [facility] Carboxyhemoglob in, Arterial 0.3 % [facility] Comment: Nonsmokers: 0.5-1.5% COHB Smokers: Variable, but usually less than 10% Toxic: 20-30% COHB Lethal: Greater than 60% COHB Methemoglobin, Arterial 0.3 <=1.5 % [facility] Na Whole Blood 135 135 - 145 mmol/L [facility] K Whole Blood 5.1(H) 3.5 - 5.0 mmol/L [facility] Comment: Please note: Patients with WBC >100,000 may have falsely elevated Potassium levels. Contact the Clinical Chemistry Laboratory if there are any questions. ICa Whole Blood 1.13(L) 1.15 - 1.33 mmol/L [facility] Comment: Note: ??Total bilirubin higher than 20 mg/dL may lead to falsely low ionized calcium. CL Whole Blood 106 98 - 107 mmol/L [facility] Gluc Whole Bld 132 65 - 199 mg/dL [facility] [facility] Comment:Diabetes: >=200 mg/d L plus symptoms. Lactate WB 1.4 0.5 - 2.2 mmol/L [facility] Blood 02/17/2024 12:1 4 PM EDT 02/17/2024 12:14 PM EDT Zak Graham MD POINT OF CARE TEST ORDERABLES Performing Organization Address [facility] Co de Phone Number [facility] [place] [address] * (ABNORMAL) Fibrinogen (02/17/2024 12:10 PM EDT) Fibrinogen 154(L) 200 - 393 mg/dL [facility] Comment: OR [...] MD HEMATOLOGY ORDERABLE S Performing Organization Address [facility] de Phone Number [facility] [place] [address] * (ABNORMAL) Thrombin time (02/17/2024 12:10 PM EDT) Thrombin Time 18(H) 10 - 17 sec [facility] Comment: OR [...] HEMATOLOGY ORDERABLE S Performing Organization Address [facility]/ZIP Co de Phone Number [facility] [place] [address] * APTT (02/17/2024 12:10 PM EDT) Partial Thromboplastin Time 33 25 - 37 sec [facility] Comment: OR [...] MD HEMATOLOGY ORDERABLE S Performing Organization Address City/[facility]/ZIP Co de Phone Number [facility] [place] [address] * (ABNORMAL) Prothrombin Time (02/17/2024 12:10 PM EDT) Prothrombin Time 16.7(H) 9.4 - 12.5 sec [facility] Comment: OR Result called by ?? LOMARL OR Results read back by: ? silvia pagan at 2024-02-17 12:41:48 International Normalization Ratio 1.5 [facility] Comment: [...] Tara York MD HEMATOLOGY ORDERABLE S [facility] [place] [address] * (ABNORMAL) Hemogram (02/17/2024 12:10 PM EDT) White Blood Cell 11.1(H) 4.0 - 9.5 x10(3)/mc L [facility] Red Blood Cell 3.50(L) 4.58 - 5.54 x10(6)/mc L [facility] Hemoglobin 10.4(L) 13.7 - 16.5 g/dL [facility] Hematocrit 30.2(L) 40.5 - 48.5 % [facility] Comment: This result has been called to SILVIA PAGAN by Eddie López on 02 17 2024 at 1226, and has been read back. Mean Cell Volume 86.3 82.9 - 93.1 fL [facility] Mean Cell Hemoglobin 29.7 27.5 - 32.1 pg [facility] Mean Cell Hemoglobin Concentration 34.4 32.0 - 35.7 g/dL [facility] Platelet 118(L) 145 - 357 x10(3)/mc L [facility] RDW Standard Deviation 40.2 36.0 - 45.0 fL [facility] RDW coefficient of variation 12.8 11.4 - 13.8 % [facility] Mean Platelet Volume 9.5 7.6 - 12.9 fL [facility] NRBC% auto 0.0 % [facility] NRBC Absolute 0.000 0.000 - 0.000 x10(3)/mc L [facility] Blood 02/17/2024 12:1 0 PM EDT 02/17/2024 12:19 PM EDT Narrative Resulting Agency Comment Spec In Lab Tara York MD HEMATOLOGY ORDERABLE S [facility] [address] [place] [address] * (ABNORMAL) BLOOD GAS 2 ARTERIAL (02/17/2024 11:43 AM EDT) pH, Arterial 7.38 7.35 - 7.45 [facility] PCO2, Arterial 40 35 - 45 mmHg [facility] PO2, Arterial 304(H) 85 - 104 mmHg [facility] Bicarbonate, Arterial 23.2 20.0 - 26.0 mmol/L [facility] Base Excess, Arterial -1.9 -3.0 - 3.0 mmol/L [facility] Hgb Blood Gas 11.1(L) 13.7 - 16.5 g/dL [facility] Oxyhemoglobin, Arterial 98.6(H) 94.0 - 97.0 % [facility] Carboxyhemoglob in, Arterial 0.3 % [facility] Comment: Nonsmokers: 0.5-1.5% COHB Smokers: Variable, but usually less than 10% Toxic: 20-30% COHB Lethal: Greater than 60% COHB Methemoglobin, Arterial 0.3 <=1.5 % [facility] Na Whole Blood 133(L) 135 - 145 mmol/L [facility] K Whole Blood 6.2(Critic al) 3.5 - 5.0 mmol/L [facility] Comment: Noted by surgical instrument technician. Please note: Patients with WBC >100,000 may have falsely elevated Potassium levels. Contact the Clinical Chemistry Laboratory if there are any questions. ICa Whole Blood 0.97(L) 1.15 - 1.33 mmol/L [facility] Comment: Note: ??Total bilirubin higher than 20 mg/dL may lead to falsely low ionized calcium. CL Whole Blood 104 98 - 107 mmol/L [facility] Gluc Whole Bld 128 65 - 199 mg/dL [facility] Comment:Diabetes: >=200 mg/d L plus symptoms. Lactate WB 1.1 0.5 - 2.2 mmol/L [facility] Blood 02/17/2024 11:4 3 AM EDT 02/17/2024 11:43 AM EDT Zak Graham MD POINT OF CARE TEST ORDERABLES [facility] [place] [address] * (ABNORMAL) BLOOD GAS 2 ARTERIAL (02/17/2024 11:08 AM EDT) pH, Arterial 7.38 7.35 - 7.45 [facility] PCO2, Arterial 38 35 - 45 mmHg [facility] PO2, Arterial 334(H) 85 - 104 mmHg [facility] Bicarbonate, Arterial 22.0 20.0 - 26.0 mmol/L [facility] Base Excess, Arterial -3.2(L) -3.0 - 3.0 mmol/L [facility] Hgb Blood Gas 10.8(L) 13.7 - 16.5 g/dL [facility] Oxyhemoglobin, Arterial 98.7(H) 94.0 - 97.0 % [facility] Carboxyhemoglob in, Arterial 0.3 % [facility] Comment: Nonsmokers: 0.5-1.5% COHB Smokers: Variable, but usually less than 10% Toxic: 20-30% COHB Lethal: Greater than 60% COHB Methemoglobin, Arterial 0.3 <=1.5 % [facility] Na Whole Blood 131(L) 135 - 145 mmol/L [facility] K Whole Blood 6.4(Critic al) 3.5 - 5.0 mmol/L [facility] Comment: Noted by surgical instrument technician. Please note: Patients with WBC >100,000 may have falsely elevated Potassium levels. Contact the Clinical Chemistry Laboratory if there are any questions. ICa Whole Blood 0.98(L) 1.15 - 1.33 mmol/L [facility] Comment: Note: ??Total bilirubin higher than 20 mg/dL may lead to falsely low ionized calcium. CL Whole Blood 104 98 - 107 mmol/L [facility] Gluc Whole Bld 127 65 - 199 mg/dL [facility] Comment:Diabetes: >=200 mg/d L plus symptoms. Lactate WB 1.0 0.5 - 2.2 mmol/L [facility] Blood 02/17/2024 11:0 8 AM EDT 02/17/2024 11:08 AM EDT Zak Graham MD POINT OF CARE TEST ORDERABLES Performing Organization Address [facility] Co de Phone Number [facility] [place] [address] * (ABNORMAL) Hemoglobin and Hematocrit, blood (02/17/2024 11:04 AM EDT) Pathologist [facility] Hemoglobin 9.6(L) 13.7 - 16.5 g/dL [facility] Hematocrit 28.0(L) 40.5 - 48.5 % [facility] Comment: This result has been called to SILVIA PAGAN by Eddie López on 02 17 2024 at 1120, and has been read back. Blood 02/17/2024 11:0 4 AM EDT 02/17/2024 11:12 AM EDT Narrative Resulting Agency Comment Spec In Lab Zak Graham MD HEMATOLOGY ORDERABL ES Performing Organization Address [facility]/ZIP Co de Phone Number [facility] [place] [address] * (ABNORMAL) Platelet count (02/17/2024 11:04 AM EDT) Platelet 106(L) 145 - 357 x10(3)/mc L [facility] Immature Plt % 1.6 0.0 - 7.4 % [facility] Comment: Limitation of the Immature Platelet Fraction (IPF)-May be less reliable when the platelet count is less than 85e427/uL due to statistical imprecision. The IPF value [...] in a decreased state of production. References: [employer] The Clinical Value of the Immature Platelet Fraction (IPF) in Cell Recovery Document Number [id number] 03/2011 [employer] The Role of the Immature Platelet Fraction (IPF) in the Differential Diagnosis of Thrombocytopenia, Document [id number] V002/15/14 P002/17 Blood 02/17/2024 11:0 4 AM EDT 02/17/2024 11:12 AM EDT Narrative Resulting Agency Comment Spec In Lab Zak Graham MD HEMATOLOGY ORDERABL ES Performing Organization Address City/State/[facility] Co de Phone Number [facility] [place] [address] * (ABNORMAL) Fibrinogen (02/17/2024 11:04 AM EDT) Fibrinogen 149(L) 200 - 393 mg/dL [facility] Comment: OR Result called by ?? SALVLT OR Results read back by: ? Silvia Pagan at 2024-02-17 11:30:47 A fibrinogen level >100 mg/dL is adequate for hemostasis in most patients without underlying bleeding disorders. Blood 02/17/2024 11:0 4 AM EDT 02/17/2024 11:12 AM EDT Narrative Resulting Agency Comment Spec In Lab Zak Graham MD HEMATOLOGY ORDERABL ES [facility] [place] [address] * (ABNORMAL) BLOOD GAS 2 ARTERIAL (02/17/2024 10:41 AM EDT) pH, Arterial 7.37 7.35 - 7.45 [facility] PCO2, Arterial 44 35 - 45 mmHg [facility] PO2, Arterial 335(H) 85 - 104 mmHg [facility] Bicarbonate, Arterial 24.9 20.0 - 26.0 mmol/L [facility] Base Excess, Arterial -0.4 -3.0 - 3.0 mmol/L [facility] Hgb Blood Gas 11.5(L) 13.7 - 16.5 g/dL [facility] Oxyhemoglobin, Arterial 98.9(H) 94.0 - 97.0 % [facility] Carboxyhemoglob in, Arterial 0.1 % [facility] Comment: Nonsmokers: 0.5-1.5% COHB Smokers: Variable, but usually less than 10% Toxic: 20-30% COHB Lethal: Greater than 60% COHB Methemoglobin, Arterial 0.3 <=1.5 % [facility] Na Whole Blood 132(L) 135 - 145 mmol/L [facility] K Whole Blood 5.9(H) 3.5 - 5.0 mmol/L [facility] Comment: Please note: Patients with WBC >100,000 may have falsely elevated Potassium levels. Contact the Clinical Chemistry Laboratory if there are any questions. ICa Whole Blood 1.02(L) 1.15 - 1.33 mmol/L [facility] Comment: Note: ??Total bilirubin higher than 20 mg/dL may lead to falsely low ionized calcium. CL Whole Blood 104 98 - 107 mmol/L [facility] Gluc Whole Bld 129 65 - 199 mg/dL [facility] Comment:Diabetes: >=200 mg/d L plus symptoms. Lactate WB 1.1 0.5 - 2.2 mmol/L [facility] Blood 02/17/2024 10:4 1 AM EDT 02/17/2024 10:41 AM EDT Zak Graham MD POINT OF CARE TEST ORDERABLES [facility] [place] [address] * (ABNORMAL) BLOOD GAS 2 ARTERIAL (02/17/2024 10:06 AM EDT) pH, Arterial 7.38 7.35 - 7.45 [facility] PCO2, Arterial 42 35 - 45 mmHg [facility] PO2, Arterial 329(H) 85 - 104 mmHg [facility] Bicarbonate, Arterial 24.7 20.0 - 26.0 mmol/L [facility] Base Excess, Arterial -0.3 -3.0 - 3.0 mmol/L [facility] Hgb Blood Gas 11.0(L) 13.7 - 16.5 g/dL [facility] Oxyhemoglobin, Arterial 99.0(H) 94.0 - 97.0 % [facility] Carboxyhemoglob in, Arterial 0.3 % [facility] Comment: Nonsmokers: 0.5-1.5% COHB Smokers: Variable, but usually less than 10% Toxic: 20-30% COHB Lethal: Greater than 60% COHB Methemoglobin, Arterial 0.3 <=1.5 % [facility] Na Whole Blood 132(L) 135 - 145 mmol/L [facility] K Whole Blood 6.0(H) 3.5 - 5.0 mmol/L [facility] Comment: Please note: Patients with WBC >100,000 may have falsely elevated Potassium levels. Contact the Clinical Chemistry Laboratory if there are any questions. ICa Whole Blood 0.97(L) 1.15 - 1.33 mmol/L [facility] Comment: Note: ??Total bilirubin higher than 20 mg/dL may lead to falsely low ionized calcium. CL Whole Blood 102 98 - 107 mmol/L [facility] Gluc Whole Bld 123 65 - 199 mg/dL [facility] Comment:Diabetes: >=200 mg/d L plus symptoms. Lactate WB 1.1 0.5 - 2.2 mmol/L [facility] Blood 02/17/2024 10:0 6 AM EDT 02/17/2024 10:06 AM EDT Zak Graham MD POINT OF CARE TEST ORDERABLES [facility] [place] [address] * Surgical Pathology Report (02/17/2024 10:01 AM EDT) Final Diagnosis [id number] ? Location: [facility]; [facility]; The signing pathologist has (i) examined the relevant preparation(s) for the specimen(s) and (ii) rendered or confirmed the diagnosis(es). . ?Surgical Pathology DIAGNOSIS Aortic valve leaflets, excision: Valve leaflets with myxoid degeneration, nodular fibrosis and dystrophic calcifications. Electronically signed by: ?Lindsay FERNANDEZ, Livier Gonzalez Verified: ??02/24/2024 13:49 ??Pathologist Performed at: ??-[facility] [place], [place] [address] Qa Specialist: Job Brewer MD, FCAP, ??CLIA Certificate: [id number] SPECIMEN(S) SUBMITTED A - Aortic Valve Leaflets, [...] Sections Processing Blocks submitted for decalcification: A1. Spray Applicator sections in 1 cassette labeled A1. ??ajw 02/24/2024 1:49 PM EDT [facility] AORTIC STRUCTURE / Unknown 02/17/2024 10:01 AM EDT 02/17/2024 10:01 AM EDT Zak Graham MD PATHOLOGY/CYTOLOGY ORDERABLES Performing Organization Address City/[facility]/ZIP Co de Phone Number [facility] [place] [address] * Specimen to Pathology (02/17/2024 10:01 AM EDT) AP Specimen 02/17/2024 10:0 1 AM EDT 02/17/2024 10:01 AM EDT Narrative [facility] - 02/17/2024 10:01 AM EDT Specimen requisition ordered. ??Separate Pathology report to follow Zak Graham MD PATHOLOGY/CYTOLOGY ORDERABLES Performing Organization Address City/[facility]/ZIP Co de Phone Number [facility] [place] [address] * (ABNORMAL) BLOOD GAS 2 ARTERIAL (02/17/2024 9:35 AM EDT) pH, Arterial 7.33(L) 7.35 - 7.45 [facility] PCO2, Arterial 35 35 - 45 mmHg [facility] PO2, Arterial 318(H) 85 - 104 mmHg [facility] Bicarbonate, Arterial 17.9(L) 20.0 - 26.0 mmol/L [facility] Base Excess, Arterial -8.0(L) -3.0 - 3.0 mmol/L [facility] Hgb Blood Gas 11.0(L) 13.7 - 16.5 g/dL [facility] Oxyhemoglobin, Arterial 98.8(H) 94.0 - 97.0 % [facility] Carboxyhemoglob in, Arterial 0.3 % [facility] Comment: Nonsmokers: 0.5-1.5% COHB Smokers: Variable, but usually less than 10% Toxic: 20-30% COHB Lethal: Greater than 60% COHB Methemoglobin, Arterial 0.3 <=1.5 % [facility] Na Whole Blood 131(L) 135 - 145 mmol/L [facility] K Whole Blood 5.8(H) 3.5 - 5.0 mmol/L [facility] Comment: Please note: Patients with WBC >100,000 may have falsely elevated Potassium levels. Contact the Clinical Chemistry Laboratory if there are any questions. ICa Whole Blood 0.98(L) 1.15 - 1.33 mmol/L [facility] Comment: Note: ??Total bilirubin higher than 20 mg/dL may lead to falsely low ionized calcium. CL Whole Blood 101 98 - 107 mmol/L [facility] Gluc Whole Bld 122 65 - 199 mg/dL [facility] Comment:Diabetes: >=200 mg/d L plus symptoms. Lactate WB 0.8 0.5 - 2.2 mmol/L [facility] Blood 02/17/2024 9:35 AM EDT 02/17/2024 9:35 AM EDT Zak Graham MD POINT OF CARE TEST ORDERABLES [facility] [place] [address] * (ABNORMAL) BLOOD GAS 2 VENOUS (02/17/2024 9:34 AM EDT) pH, Venous 7.22(Criti marquez) 7.32 - 7.42 [facility] Comment:Noted by surgical instrument technician. PCO2, Venous 43 41 - 51 mmHg [facility] Comment:Noted by surgical instrument technician. PO2, Venous 57(H) 25 - 40 mmHg [facility] Comment:Noted by surgical instrument technician. Bicarbonate, Venous 17.1 mmol/L [facility] Comment:Noted by surgical instrument technician. Base Excess, Venous -10.6 mmol/L [facility] Comment:Noted by surgical instrument technician. Hgb Blood Gas 11.2(L) 13.7 - 16.5 g/dL [facility] Comment:Noted by surgical instrument technician. Oxyhemoglobin, Venous 86.5 % [facility] Comment:Noted by surgical instrument technician. Carboxyhemoglob in, Venous 0.3 % [facility] Comment: Noted by surgical instrument technician. Nonsmokers: 0.5-1.5% COHB Smokers: Variable, but usually less than 10% Toxic: 20-30% COHB Lethal: Greater than 60% COHB Methemoglobin, Venous 0.0 <=1.5 % [facility] Comment:Noted by surgical instrument technician. Na Whole Blood 156(H) 135 - 145 mmol/L [facility] Comment:Noted by surgical instrument technician. K Whole Blood 5.5(H) 3.5 - 5.0 mmol/L [facility] Comment: Noted by surgical instrument technician. Please note: Patients with WBC >100,000 may have falsely elevated Potassium levels. Contact the Clinical Chemistry Laboratory if there are any questions. ICa Whole Blood 1.03(L) 1.15 - 1.33 mmol/L [facility] Comment: Noted by surgical instrument technician. Note: ??Total bilirubin higher than 20 mg/dL may lead to falsely low ionized calcium. CL Whole Blood 100 98 - 107 mmol/L [facility] Comment:Noted by surgical instrument technician. Gluc Whole Bld 132 65 - 199 mg/dL [facility] Comment: Noted by surgical instrument technician. Diabetes: >=200 mg/dL plus symptoms Lactate WB 1.0 0.5 - 2.2 mmol/L [facility] Comment:Noted by surgical instrument technician. Blood Gas Source Venous [facility] Blood 02/17/2024 9:34 AM EDT 02/17/2024 9:34 AM EDT Zak Graham MD POINT OF CARE TEST ORDERABLES [facility] [place] [address] * (ABNORMAL) BLOOD GAS 2 ARTERIAL (02/17/2024 8:07 AM EDT) pH, Arterial 7.43 7.35 - 7.45 [facility] PCO2, Arterial 34(L) 35 - 45 mmHg [facility] PO2, Arterial 581(H) 85 - 104 mmHg [facility] Bicarbonate, Arterial 21.7 20.0 - 26.0 mmol/L [facility] Base Excess, Arterial -2.6 -3.0 - 3.0 mmol/L [facility] Hgb Blood Gas 14.5 13.7 - 16.5 g/dL [facility] Oxyhemoglobin, Arterial 99.0(H) 94.0 - 97.0 % [facility] Carboxyhemoglob in, Arterial 0.4 % [facility] Comment: Nonsmokers: 0.5-1.5% COHB Smokers: Variable, but usually less than 10% Toxic: 20-30% COHB Lethal: Greater than 60% COHB Methemoglobin, Arterial 0.3 <=1.5 % [facility] Na Whole Blood 139 135 - 145 mmol/L [facility] K Whole Blood 4.0 3.5 - 5.0 mmol/L [facility] Comment: Please note: Patients with WBC >100,000 may have falsely elevated Potassium levels. Contact the Clinical Chemistry Laboratory if there are any questions. ICa Whole Blood 1.09(L) 1.15 - 1.33 mmol/L [facility] Comment: Note: ??Total bilirubin higher than 20 mg/dL may lead to falsely low ionized calcium. CL Whole Blood 106 98 - 107 mmol/L [facility] Gluc Whole Bld 100 65 - 199 mg/dL [facility] Comment:Diabetes: >=200 mg/d L plus symptoms. Lactate WB 1.3 0.5 - 2.2 mmol/L [facility] Blood 02/17/2024 8:07 AM EDT 02/17/2024 8:07 AM EDT Zak Graham MD POINT OF CARE TEST ORDERABLES Performing Organization Address [facility]/ZIP Co de Phone Number [facility] [place] [address] * POCT Glucose (02/17/2024 6:38 AM EDT) Glucose, POC 98 65 - 199 mg/dL [facility] Comment: Supplemental ranges: <140 mg/dL before meals <180 mg/dL all other times of the day Blood 02/17/2024 6:38 AM EDT 02/17/2024 6:38 AM EDT Zak Graham MD POINT OF CARE TEST ORDERABLES Performing Organization Address [facility] Co de Phone Number [facility] [place] [address] * Transesophageal Echo/OR (02/17/2024 6:33 AM EDT) [...] 6 hours upon arrival to Unit. Give OR if unable to take PO, Routine Given [...] dose on Sat02/17/24 at 1400, Until Discontinued, [place] teeth and / or gums. Scan the CHG vial in the [employer] Q-Care Oral Care Kit from floor stock. Ventilator-associated pneumonia prophylaxis For use in ICU/Critical care locations ONLY. Obtain kit from Floor Stock location. Scan CHG vial in the [employer] Q-Care Oral Care Kit, Routine Given 02/17/2024 [...] at 50% of previous rate. Call warehouse shipping clerk if goal not achieved at maximum rate. [...] PHENYLephrine and/or vasopressin ineffective. Call pager # [phone] if initiated. Titrate to keep systolic blood [...] L/min/M2. Maximum volume 2 L. Call warehouse shipping clerk for additional fluid orders: pager #[phone]. Rate/Dose Verify 02/18/2024 8:00 AM EDT 1 mL/hr 1 mL/hr Rate/Dose Verify 02/18/2024 6:00 AM EDT 1 mL/hr 1 mL/hr Rate/Dose Verify 02/18/2024 4:00 AM EDT 1 mL/hr 1 mL/hr sodium chloride 0.9% infusion 10-30 mL/hr, Intravenous, DAILY PRN, Starting on Sat02/17/24 at 1307, Until Sat02/18/24 at 0835, Side port TKO rate, per [facility] nursing protocol. Rate/Dose Verify 02/17/2024 8:00 PM EDT 30 mL/hr 30 mL/hr Rate/Dose Verify 02/17/2024 6:00 PM EDT 30 mL/hr 30 mL/h r Rate/Dose Verify 02/17/2024 5:00 PM EDT 30 mL/hr 30 mL/h r sodium chloride 0.9% infusion 10-30 mL/hr, Intravenous, DAILY PRN, Starting on Sat02/17/24 at 1307, Until Sat02/18/24 at 0835, Side port TKO rate, per [facility] nrusing protocol. Rate/Dose Verify 02/18/2024 8:00 [...] 09 (Patch Applied - Provider: Mishel Merrill, COLYB)[id number] (Patch Removed - Provider: Otis Crook, COLBY) [...] Routine documented in this encounter Care Teams Chisel Mortiser Operator Relationship Specialty Start Date End Date Aparna Jordan APRN PCP - General Family Medicine 10/21/23 documented as of this encounter
--- OUTSIDE RECORDS SUMMARY | 2024-05-25 09:19 | XMS_ITS | Encounter Summary ---
Author Organization [facility] Address [facility] [place] [address] Care Team Providers Care Felling Machine Operator Name Role Phone Vanessa Christian MAURI Primary Care Provider [phone] Encounter Details Date Type Department Care Team (Latest Contact Info) Description 03/12/2024 1:30 PM EDT - 03/12/2024 11:59 PM EDT Hospital Encounter XRay at [address] [place] [address] Coronary artery disease, unspecified vessel or lesion type, unspecified whether angina present, unspecified whether [place] or transplanted heart Discharge Disposition: Home Social History Tobacco Use Types Packs/Day Years Used Date Smoking Tobacco: Former Cigarettes Smokeless Tobacco: Never Comments:Quit 15 + years ago Alcohol Use Standard Drinks/Week Comments Yes 0 (1 standard drink = 0.6 oz pur e alcohol) rare [facility] Utilities Answer Date Recorded In the past 12 months has e [employer] gas, oil, or water [employer] threatened to shut off services in your [...] AM EDT Office Visit Cardiology at [address] [place] [place] [address] Neftali Ernandez MD [facility] [place] [address] documented as of this encounter Procedures Procedure Name Priority Date/Time Associated Diagnosis Comments XR CHEST PA AND LATERAL Routine 03/12/2024 1:42 PM EDT Coronary artery disease, unspecified vessel or lesion type, unspecified whether angina present, unspecified whether [place] or transplanted heart documented in this encounter Results * XR Chest PA & Lateral (Generic) (03/12/2024 1:42 PM EDT) WORKSTATION ID [id number] RAD Anatomical Region Laterality Modality Chest N/A [...] who have questions please contact the health special needs caregiver that requested your imaging first. ? Electronically signed by: Augie Sanchez MD, [facility] ([phone]), at 03/13/2024 8:28 AM Narrative 03/13/2024 8:28 AM EDT EXAMINATION: XR CHEST PA AND LATERAL (GENERIC) CLINICAL HISTORY: s/p cabg eval effusions I25.10, Atherosclerotic heart disease of [place] coronary artery without angina pectoris TECHNIQUE: PA [...] eval effusions I25.10, Atherosclerotic heart disease of [place] coronary artery withoutangina pectoris TECHNIQUE: PA and [...] patients who have questions please contactthe health special needs caregiver that requested your imaging first. Electronically signed by: Augie Sanchez MD, [facility]([phone]), at 03/13/2024 8:28 AM Zak Farmer MD IMG DX ORDERABLES documented in this encounter Visit Diagnoses Diagnosis Coronary artery disease, unspecified vessel or lesion type, unspecified whether angina present, unspecified whether [place] or transplanted heart documented in this encounter Care Teams Felling Machine Operator Relationship Specialty Start Date End Date Vanessa Christian APRN PCP - General Family Medicine 10/21/23 documented as of this encounter
--- OUTSIDE RECORDS SUMMARY | 2024-05-25 09:19 | XMS_ITS | Encounter Summary ---
Author Organization [facility] Address [address] [place] [address] Care Team Providers Care Supervisor Shipping Room Name Role Phone Vanessa Christian Lane MONCADA Primary Care Provider [phone] Encounter Details Date Type Department Care Team (Late st Contact Info) Description 10/24/2023 Lab Requisition [facility] Pathology & Laboratory Medicine - [address] [address] Oscar Nichole MD [address] [place] [phone] Factitial dermatitis Social History Tobacco Use Types [...] management options, if applicable. 10/28/2023 11:24 EST [facility] Final Diagnosis A. SKIN OF RESTORATIONISM, LEFT, SHAVE BIOPSY: - Seborrheic keratosis, pigmented. 10/28/2023 11:24 EST [facility] Attestation By the signature below, the attending physician certifies that they have 1) personally conducted a gross and/or microscopic examination of the described specimen(s), and/or personally interpreted the results of laboratory testing of the described specimen(s), and 2) personally rendered or confirmed the above diagnosis. 10/28/2023 11:24 [facility] at [address] Microscopic Description The stratum corneum is thickened by compact and basketweave orthokeratosis with formation of horn pseudocysts. The epidermis is acanthotic with formation of broad and anastomosing trabeculae. The trabeculae are composed of basaloid keratinocytes with round uniform nuclei. The keratinocytes have a variable amount of melanin pigment. 10/28/2023 11:24 [facility] Clinical History Pigmented 2 cm patch; clinical diagnosis code: L98.1 10/28/2023 11:24 [facility] Gross Description A. Received in formalin labelled with proper patient identification (initials P, A) and left nondenominational is a shave biopsy of an irregular [...] Nora Anderson 10/25/2023 8:47 10/28/2023 11:24 [facility] Performing Lab [facility] 10/28/2023 11:24 [facility] Scanned Images 10/28/2023 11:24 [facility] Tissue SPECIMEN FROM SKIN / Unknown 10/24/2023 14:30 EST 10/24/2023 22:04 EST Oscar Nichole MD PATHOLOGY ORDERABLES [facility] [address] [place] [address] documented in this encounter Visit Diagnoses Diagnosis Factitial dermatitis Dermatitis factitia (artefacta) documented in this encounter Care Teams Supervisor Shipping Room Relationship Specialty Start Date End Date Vanessa Christian NP [address] [place] [address] PCP - General Family Medicine - Primary Care 10/07/23 documented as of this encounter
--- OUTSIDE RECORDS SUMMARY | 2024-05-25 09:19 | XMS_ITS | Encounter Summary ---
Author Organization [facility] Address [facility] [place] [address] Care Team Providers Care Pricing Analyst Name Role Phone Gino Vanessa Lane DOTSON Primary Care Provider [phone] Encounter Details Date Type Department Care Team (Late st Contact Info) Description 02/24/2024 Orders Only Cardiac Surgery [facility] [place] [id number] Trudi Lester APRN [facility] [place] [address] Social History Tobacco Use Types Packs/Day Years Used Date Smoking Tobacco: Former Cigarettes Smokeless Tobacco: Never Comments:Quit 15 + years ago Alcohol Use Standard Drinks/Week Comments Yes 0 (1 standard drink = 0.6 oz pur e alcohol) rare [facility] Utilities Answer Date Recorded In the past 12 months has e [employer], gas, oil, or water [employer] threatened to shut off services in your [...] place to sleep or slept in a half-way (including now)? No 02/18/2024 DH IPV Inpatient [...] AM EDT Office Visit Cardiology at [address] [place] [address] Neftali Ernandez MD [facility] [place] [address] documented as of this encounter Visit Diagnoses Not on filedocumented in this encounter Care Teams Pricing Analyst Relationship Specialty Start Date End Date Vanessa Christian APRN PCP - General Family Medicine 10/21/23 documented as of this encounter
--- OUTSIDE RECORDS SUMMARY | 2024-05-25 09:19 | XMS_ITS | Encounter Summary ---
Author Organization [facility] Address [facility] [place] [address] Care Team Providers Care Marketer Name Role Phone Vanessa Christian MAURI Primary Care Provider [phone] Encounter Details Date Type Department Care Team (Latest Contact Info) Description 03/12/2024 Travel Social History Tobacco Use Types Packs/Day Years Used Date Smoking Tobacco: Former Cigarettes Smokeless Tobacco: Never Comments:Quit 15 + years ago Alcohol Use Standard Drinks/Week Comments Yes 0 (1 standard drink = 0.6 oz pur e alcohol) rare [place] Utilities Answer Date Recorded In the past [...] AM EDT Office Visit Cardiology at [address] [place] [phone] Neftali Ernanedz MD [facility] [place] [address] documented as of this encounter Visit Diagnoses Not on filedocumented in this encounter Care Teams Marketer Relationship Specialty Start Date End Date Vanessa Christian APRN PCP - General Family Medicine 10/21/23 documented as of this encounter
--- OUTSIDE RECORDS SUMMARY | 2024-05-25 09:19 | XMS_ITS | Encounter Summary ---
Author Organization [facility] Address [facility] [place] [address] Care Team Providers Care Manager Gift Name Role Phone Vanessa Christian MAURI Primary Care Provider [phone] Encounter Details Date Type Department Care Team (Late st Contact Info) Description 03/12/2024 2:40 PM EDT Office [place] [phone] Zak Farmer MD [facility] [place] [address] Coronary artery disease, unspecified vessel or lesion type, unspecified whether angina present, unspecified whether [place] or transplanted heart Social History Tobacco Use Types Packs/Day Years Used Date Smoking Tobacco: Former Cigarettes Smokeless Tobacco: Never Comments:Quit 15 + years ago Alcohol Use Standard Drinks/Week Comments Yes 0 (1 standard drink = 0.6 oz pur e alcohol) rare [facility] Utilities Answer Date Recorded In the past 12 months has e [employer], gas, oil, or water [employer] threatened to shut off services in your [...] 2:40 PM EDT To: MD Vanessa Coles, MOTOR HOTEL MANAGER Re; Karlos Santa ( 1960) We [...] office. Best personal regards, Zak Farmer MD [phone] documented in this encounter Plan of Treatment Upcoming Encounters Date Type Department Care Team (Late st Contact Info) Description 05/27/2024 11:00 AM EDT Office Visit Cardiology at [address] [place] [address] Neftali Ernandez MD [facility] [place] [address] documented as of this encounter Procedures Procedure Name Priority Date/Time Associated Diagnosis Comments EKG 12-LEAD Routine 03/12/2024 2:35 PM EDT Coronary artery disease, unspecified vessel or lesion type, unspecified whether angina present, unspecified whether [place] or transplanted heart documented in this encounter Results * EKG 12 Lead (03/12/2024 2:35 PM EDT) Ventricular rate 59 BPM MUSE SYSTEM Atrial Rate 59 BPM MUSE SYSTEM P-R Interval 190 ms MUSE SYSTEM QRS Duration 92 ms MUSE SYSTEM Q-T Interval 406 ms MUSE SYSTEM QTC Calculated (Bezet) 401 ms MUSE SYSTEM Calculated P [place] -12 degrees MUSE SYSTEM Calculated R [place] 24 degrees MUSE SYSTEM Calculated T [place] 74 degrees MUSE SYSTEM INTERPRETATION Sinus bradycardia T wave abnormality, consider anterior ischemia Abnormal ECG When compared with ECG of 17-FEB-2024 13:24, MD interval has decreased T wave inversion now evident in Anterior leads Confirmed by Paul Guzman ([id number]) on 03/15/2024 8:36:23 AM MUSE SYSTEM 03/12/2024 2:35 PM EDT 03/15/2024 8:36 AM EDT Zak Farmer MD ECG ORDERABLES MUSE SYSTEM documented in this encounter Visit Diagnoses Diagnosis Coronary artery disease, unspecified vessel or lesion type, unspecified whether angina present, unspecified whether [place] or transplanted heart documented in this encounter Care Teams Manager Gift Relationship Specialty Start Date End Date Vanessa Christian, MAURI PCP - General Family Medicine 10/21/23 documented as of this encounter
--- OUTSIDE RECORDS SUMMARY | 2024-05-25 09:19 | XMS_ITS | Clinical Summary ---
Author Organization [facility] Address [facility] [place] [address] Care Team Providers Care Coat Fitter Name Role Phone Gino Vanessa Lane DOTSON Primary Care Provider [phone] Allergies No known active allergies Medications Medication [...] Aortic stenosis 08/14/2023 Overview (10/21/2023): 12/2022 [facility] VITA 0.8-0.9 cm2 (MG 28 mmHg, [...] the meantime will refer to SHT at [facility] for further evaluation. Logistics and preliminary review of TONY were reviewed with patient. - Refer to SHT Hypertension 08/14/2023 HLD (hyperlipidemia) 08/14/2023 Resolved Problems Problem Noted Date Diagnosed Date Resolved Date Chest pressure 08/14/2023 10/21/2023 SILVA (dyspnea on exertion) 08/14/2023 Encounters Date Type Department Care Team Description 05/20/2024 Travel 03/12/2024 2:40 PM EDT Office Visit [place] [address] Zak Farmer MD Coronary artery disease, unspecified vessel or lesion type, unspecified whether angina present, unspecified whether [place] or transplanted heart 03/12/2024 1:30 PM EDT - 03/12/2024 11:59 PM EDT Hospital Encounter XRay at [facility] [place] [address] Coronary artery disease, unspecified vessel or lesion type, unspecified whether angina present, unspecified whether [place] or transplanted heart Discharge Disposition: Home 03/12/2024 Travel 02/24/2024 Orders Only Cardiac Surgery [facility] [place] [address] Tyaler, NinaMAURI 02/17/2024 5:43 AM EDT - 02/24/2024 11:23 AM EDT Hospital Encounter Heart and Vascular Unit Level 4 Wing B at [facility] [place] [address] Zak Farmer MD S/P AVR (Primary Dx); [...] oz pur e alcohol) rare [facility] Utilities Answer Date Recorded In the past 12 months has th e electric, gas, oil, or water [facility] threatened to shut off services in your [...] AM EDT Office Visit Cardiology at [address] [place] [address] Neftali Ernandez MD [facility] [place] [address] Health Maintenance Due Date Last Done Comments [...] series) 06/07/2024 Medical Devices Implanted Type Area Public Health Inspector Device Identifier Shelf Expiration Date Model / Serial / Lot Cable,Cut,Edg ,Blnt,Ss,3tpr ([id number]) - [id number] Implanted:Qty : 1 on 02/17/2024 by Zak Farmer MD at [facility] IMPLANTS Midline: Chest [employer] - [id number] 09/02/2028 [id number] / / [id number] Valve Coronary Aortic 23mm Tissue Trnscath [employer] ([id number]) ([employer]) - [id number] Implanted:Qty : 1 on 02/17/2024 by Zak Farmer MD at [facility] IMPLANTS Heart [employer] - TSAI LI 09/15/2027 [id number] / [id number] / Procedures Procedure Name Priority Date/Time Associated Diagnosis Comments EKG 12-LEAD Routine 03/12/2024 2:35 PM EDT Coronary artery disease, unspecified vessel or lesion type, unspecified whether angina present, unspecified whether [place] or transplanted heart XR CHEST PA AND LATERAL Routine 03/12/2024 1:42 PM EDT Coronary artery disease, unspecified vessel or lesion type, unspecified whether angina present, unspecified whether [place] or transplanted heart SCAN DOC: TELEMETRY STRIPS [...] METABOLIC PANEL Routine 02/23/2024 4:24 AM EDT from Last 3 Months Results * EKG 12 Lead (03/12/2024 2:35 PM EDT) Ventricular rate 59 BPM MUSE SYSTEM Atrial Rate 59 BPM MUSE SYSTEM P-R Interval 190 ms MUSE SYSTEM QRS Duration 92 ms MUSE SYSTEM Q-T Interval 406 ms MUSE SYSTEM QTC Calculated (Bezet) 401 ms MUSE SYSTEM Calculated P [place] -12 degrees MUSE SYSTEM Calculated R [place] 24 degrees MUSE SYSTEM Calculated T [place] 74 degrees MUSE SYSTEM INTERPRETATION Sinus bradycardia T wave abnormality, consider anterior ischemia Abnormal ECG When compared with ECG of 17-FEB-2024 13:24, [place] interval has decreased T wave inversion now evident in Anterior leads Confirmed by Paul Guzman ([id number]) on 03/15/2024 8:36:23 AM MUSE SYSTEM 03/12/2024 2:35 PM EDT 03/15/2024 8:36 AM EDT Zak Farmer MD ECG ORDERABLES MUSE SYSTEM * XR Chest PA & Lateral (Generic) (03/12/2024 1:42 PM EDT) Pathologist [facility] WORKSTATION ID [id number] RAD Anatomical Region Laterality Modality Chest N/A [...] have questions please contact the health care coordinator that requested your imaging first. ? Narrative 03/13/2024 8:28 AM EDT EXAMINATION: XR CHEST PA AND LATERAL (GENERIC) CLINICAL HISTORY: s/p cabg eval effusions I25.10, Atherosclerotic heart disease of [place] coronary artery without angina pectoris TECHNIQUE: PA [...] eval effusions I25.10, Atherosclerotic heart disease of [place] coronary artery withoutangina pectoris TECHNIQUE: PA and [...] who have questions please contactthe health care coordinator that requested your imaging first. Zak Farmer MD IMG DX ORDERABLES * Scan Doc: Telemetry Strips (02/24/2024 8:03 AM EDT) Only the most recent of6 resultswithin the time period is included. Narrative 02/24/2024 8:03 AM EDT Ordered by an unspecified provider. Scanning Provider MEDIA MGR SCAN EXT O RDR/RSLT * Potassium (02/24/2024 4:42 AM EDT) Pathologist [facility] Potassium 4.0 3.5 - 5.0 mmol/L [place] [...] CHEMISTRY ORDERABLE S [facility] [place] [address] * (ABNORMAL) Basic Metabolic Panel (non-fasting) (02/23/2024 4:24 AM EDT) Glucose 117 65 - 199 mg/dL [facility] [...] In Lab Romeo Carpio MD CHEMISTRY ORDERABLES [facility] [place] [address] from Last 3 Months Advance Directives * [...] Status decision made by: Patient Care Teams Coat Fitter Relationship Specialty Start Date End Date Vanessa Christian, MAURI PCP - General Family Medicine 10/21/23
--- OUTSIDE RECORDS SUMMARY | 2024-05-25 09:20 | XMS_ITS | Encounter Summary ---
[facility] [place] [place] [address] Care Team Providers Care Customer Support Technician Name Role Phone Aparna Jordan MAURI Primary Care Provider [phone] Reason for Visit * Auth/Cert (Routine) Specialty [...] ARTERIAL GRAFT (WRVU 7.93) Hayder Graham MD [facility] [place]ARDIOTHORACIC [place] [address] [facility] [[email or web address] Referral ID Status Reason Start Date Expiration Date Visits Re quested Visits Authorized [id number] 1 1 Encounter Details Date Type Department Care Team (Late st Contact Info) Description 02/17/2024 7:30 AM EDT - 02/17/2024 1:26 PM EDT [place] [id number] Hayder Graham MD [facility] CARDIOTHORACIC [place] [address] ENDOSCOPIC HARVEST VEIN(S) FOR CABG (WRVU 0.31) Social History Tobacco Use Types Packs/Day Years Used Date Smoking Tobacco: Former Cigarettes Smokeless Tobacco: Never Comments:Quit 15 + years ago Alcohol Use Standard Drinks/Week Comments Yes 0 (1 standard drink = 0.6 oz pur e alcohol) rare [facility] Utilities Answer Date Recorded In the past [...] in this encounter Discharge Summaries * Neftali Menno PA - 02/24/2024 8:59 AM EDT Inpatient - Discharge Summary Patient Name: Karlos Garcia Patient Age: 63 y.o. Birthdate: 1960 Language: Brazilian Race: White Ethnicity: Not nor Admit Date: 02/17/2024 Discharge Date: 02/24/24 Attending Physician: Hayder Graham MD Follow-up Recommendations for Providers: Please continue routine management of cardiovascular risk factors including blood pressure, lipids,glucose, etc. Please note any changes to medications. Patient to follow up with PCP, Aparna Jordan APRN, in 1-2 weeks. Patient to follow up with Mingler Operator, Neftali Ernandez MD , in 2 weeks. Patient to follow up with Cardiac Surgeon, Dr. Hayder Graham, with a chest x-ray, EKG, and Echo. 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 Right yazidi Past Surgical History: Procedure Laterality Date PRO CABG, ARTERIAL, SINGLE N/A 02/17/2024 @CABG, USING ARTERIAL GRAFT;SINGLE ARTERIAL GRAFT (WRVU 33.75) performed by Hayder Graham MD at [facility] MAIN OR PRO CABG, ARTERY-VEIN, TWO N/A 02/17/2024 @CABG, TWO VENOUS GRAFTS & ARTERIAL GRAFT (WRVU 7.93) performed by Hayder Graham MD at [facility] MAIN OR PRO ENDOSCOPY W/VIDEO-ASST VEIN HARVEST, CABG Left 02/17/2024 ENDOSCOPIC HARVEST VEIN(S) FOR CABG (WRVU 0.31) performed by Hayder Graham MD at [facility] MAIN OR PRO REPLACEMENT PROSTHETIC AORTIC VALVE OPEN W CARDIOPULMONARY BYPASS HOMOGRF/STENT N/A 02/17/2024 @REPLACE AORTIC VALVE, OPEN, W\CPB, W\PROSTHETIC VALVE (WRVU 41.32) performed by Hayder Graham MD at [facility] MAIN OR Prior To Admission [...] insufficiency. He has glaucoma. He used to bacZettaCore until about 15 years ago. He has undergone prior herniorrhaphy. 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 Major Procedures/Operations: 02/17/24 s/p avr/cabgx3 CABG x 3 JOSE->LAD SVG->dRCA SVG->OM1 EVH from LLE AVR with a 23 mm Inspiris Bioprosthesis Hospital Course: Karlos Garcia was admitted to [facility] on 02/17/2024 via the Same Day [...] Hayder Graham and/or the Cardiac Surgery Physician Charter Coordinator Team may be reached at . Antibiotic [...] Please refer to the card with the [place] [employer] Guidelines for more information. You [...] Dr. Hayder Graham. You may use a Octa Track or treadmill but avoid any pulling [...] friends, go to a movie, go to gnosticist, etc. Heavy activities: No hunting, skiing, jogging, [...] should resume a low fat, low cholesterol, [place] Heart [employer] Diet. Driving: No driving until [...] while being managed by your PCP and/or Mingler Operator. For future medication refills, please refer to your PCP and/or Mingler Operator after your discharge from our service. Thank you REMOVE CHEST TUBE SUTURES ON OR AFTER 03/02/24 Home oxygen therapy: N/A Follow up appointments: You should follow up with your PCP, Aparna Jordan APRN, in 1-2 weeks. Our office will schedule an appointment with your Mingler Operator, Neftali Ernandez MD , in 2 weeks. You have an appointment with your Cardiac Surgeon, Dr. Hayder Graham, 4 weeks with a chest x-ray, EKG, and Echo before your appointment. Cardiac Rehabilitation: Karlos aGrcia was seen regarding participation in the outpatient Phase 2Cardiac Rehabilitation at [facility]. The patient agrees to a referral to this program. The referral will be sent at discharge and the patient should be contacted by the Program within 1- 2 weeks from discharge. Future Appointments and Orders Future Orders Complete By Expires Echocardiogram Transthoracic [16744 CPT(R)] 03/26/2024 09/25/2024 Process Instructions: Scheduling Instructions: Questions: Where will study be performed?: [facility] Does the patient have Congenital Heart Disease?: Does patient require sedation?: Sedation rationale: XR Chest PA & Lateral (Generic) [83402 48082 Custom] 03/26/2024 09/25/2024 Process Instructions: Scheduling Instructions: Questions: Portable exam?: Reason for exam and clinical history: s/p avr/cabg Clinical information / jerome questions for radiologist: Stat read required?: Date of injury if applicable: Requested Time: Where will study be performed?: [facility] Radiology Referral to Cardiac Rehab [[id number] Custom] As directed Process Instructions: If no progress note charted, please enter Clinical details in comments. Scheduling Instructions: Questions: My question or request is: s/p AVR/CABG. Cardiac rehab at [facility]. Referral to Home Health [REF34 Custom] As directed Process Instructions: If no progress note charted, please enter Clinical details in comments. Scheduling Instructions: Comments: Please evaluate Karlos Garcia for admission to Home Health. [address] Phone Number: Date of : 1960 Inpatient DOCUMENTATION FOR VNA SERVICES (INCLUDING THOSE PATIENTS WITH MEDICARE COVERAGE REQUIRING HOME VNA SERVICES AND/OR HOSPICE SERVICES) PATIENT'S LOCATION: Karlos Garcia [address] [employer] [phone] Patient Admitting Clerk's Name: self/family In discussion with the attending physician, it is certified that this patient is under their care and that they, or a Nurse Practitioner, or Physician Charter Coordinator who is working directly with them, hada [...] for services as follows: HOME HEALTH AGENCY: [facility] [address] [place] [phone] RN orders: Cardiopulmonary assessment, incisional assessment, assess [...] issues please call the Cardiology Office at [phone] FOR MEDICARE ONLY: (please delete this section [...] care: As above. Signed: NEFTALI MENON PA-C [facility] Section of Cardiac Surgery [facility] [address] FAX [phone] Date: 02/24/2024 CC: Aparna Joradn, MAURI Jordan, Aparna Sherman APRN [address] [place] [address] documented in this encounter Discharge Instructions * [...] Hayder Graham and/or the Cardiac Surgery Physician Charter Coordinator Team may be reached at . Antibiotic [...] Please refer to the card with the [place] Heart [employer] Guidelines for more information. You [...] until after your return appointment with Dr. aHyder Graham. You may use a Octa Track or treadmill but avoid any pulling [...] friends, go to a movie, go to gnosticist, etc. Heavy activities: No hunting, skiing, jogging, [...] should resume a low fat, low cholesterol, [place] Heart [employer] Diet. Driving: No driving until [...] while being managed by your PCP and/or Mingler Operator. For future medication refills, please refer to your PCP and/or Mingler Operator after your discharge from our service. Thank you REMOVE CHEST TUBE SUTURES ON OR AFTER 03/02/24 Home oxygen therapy: N/A Follow up appointments: You should follow up with your PCP, Aparna Jordan APRN, in 1-2 weeks. Our office will schedule an appointment with your Mingler Operator, Neftali Ernandez MD , in 2 weeks. You have an appointment with your Cardiac Surgeon, Dr. Hayder Graham, 4 weeks with a chest x-ray, EKG, and Echo before your appointment. Cardiac Rehabilitation: Karlos Garcia was seen regarding participation in the outpatient Phase 2Cardiac Rehabilitation at [facility]. The patient agrees to a referral to [...] 0600 and on the weekends please page [phone]. * Eric Barahona PA - 02/23/2024 9:27 [...] 0600 and on the weekends please page [phone]. * Tiffanie Owens - 02/22/2024 2:48 PM [...] d/c for 10 days. 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 * Kelley Hinson PTA - 02/21/2024 10:15 [...] d/c for 10 days. 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 * Kelley Hinson PTA - 02/20/2024 3:32 PM EDT 02/20/24 5653 Evaluation & Treatment Document Type contact Total Minutes, Physical Therapy 0 Comment, Session Not Performed Checked in w/ pt this PM for ongoing PT services, pt politely declined, stating he had been dealing w/ nausea all day, made plan to see him tomorrow morning, will f/u at that time Kelley Hinson PTA Pager: [phone] Physical Therapy Inpatient Rehab Department * Louisa [...] 0600 and on the weekends please page [phone]. * Maris Benavides, PT - 02/19/2024 11:22 [...] d/c for 10 days. 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 Precautions/Special Considerations: STERNAL [...] outlined inthis evaluation. MARIS BENAVIDES, PT Pager: [phone] Physical Therapy Inpatient Rehabilitation Department Time IN / OUT: 0945-2851 Total Time: 38 (eval) minutes; * Antonio [...] 0600 and on the weekends please page [phone]. * Minnie Begum PA - 02/18/2024 8:25 [...] 0600 and on the weekends please page [phone]. * Kim Ha RCP - 02/17/2024 2:25 [...] in this encounter H&P Notes * Hayder Garham MD - 02/17/2024 7:02 AM EDT There has been No change in the patients condition or operative plan since last visit. Hayder Graham MD [phone] Source Note - Hayder Graham MD - [...] given written informed consent. Hayder Graham MD [phone] * Hayder Graham MD - 02/17/2024 7:00 [...] insufficiency. He has glaucoma. He used to bacZettaCore until about 15 years ago. He has [...] given written informed consent. Hayder Graham MD [phone] documented in this encounter Miscellaneous Notes * [...] information for follow-up Home Health & Hospice, [address] [place] [address] Cardiac Rehab, [facility] [address] [place] [address] [place] [address] Transportation: family or friend will provide Functional status prior to admission: Independent Home Environment: Others in the home: alone. Current Living Arrangements: home/apartment/condo. Accessibility Concerns:a few steps to enter 1 floor home. Current Functional Ability: Assistive Person and Equipment DME used at home: none DME Needed at Discharge: N/A Patient is insured through: Primary Insurance: [facility] Payor: [facility] / Plan: [facility] PPO / Product Type: *No Product [...] pain managed with scheduled Tylenol. Worked with [employer]. Ambulated in the roque multiple times during [...] anticipated Patient is insured through: Primary Insurance: [employer] Payor: [facility] / Plan: [facility] PPO / Product Type: *No Product type* / Secondary Insurance: N/A Last Physical Therapy Recommendation: home with home health (Str coming to stay for a week or two upon d/c) with to be determined (owns rolling walker, shower seat) Plan for discharge is: Home w/ Services Outpatient Agency/Support Group Needs: Homecare agency Home Health Services: Physical Therapy, Registered Nurse Agency Referrals: [facility]. [address] [place] [phone] Transportation: family or friend will provide Barriers to discharge: Discharge planning Plan going forward: Service Care Management will continue to follow and assist with discharge planning and coordination of care as indicated. Anticipated Date of Discharge: 02/22/2024 Rhett Bell RN RN/CM - Cellphone: [phone] Pager: [phone] Covering Service RN/CM * Plan of Care [...] Yang RN - 02/19/2024 10:44 AM EDT [facility] Karlos Garcia was seen today regarding participation in the outpatient Phase 2 Cardiac Rehabilitation at [facility]. The patient agrees to a referral to [...] Hypertension 08/14/2023 Nevus of face 09/26/2023 Right yazidi Hospitalizations Within the Past 30 Days: no previous admission in last 30 days Current Decision-Making Capacity: Self If AD's have not been completed the following surrogate would be surrogate decision maker per [place] surrogate decision making law. (Only good for 180 days) Any patient receiving care in [place] must abide by [place] law. The hierarchy for surrogate decision making [...] (i) The agent with financial power of county attorney or a conservator appointed in accordance [...] In the past 12 months has the [employer], gas, oil, or water [employer] threatened to shut off services in your [...] Home Address confirmed as: [address] [facility] [address] Physical address: [address] [facility], [address] Social & Family Supports: All names listed [...] Information: none noted Health/Prescription Coverage: Primary Insurance: [employer] Payor: [facility] / Plan: [facility] PPO / Product Type: *No Product type* / Secondary Insurance: N/A ; Prescription Coverage: Yes Preferred Pharmacy: [id number] [address] [place] Status: Patient is a : No Primary Care Provider confirmed: Aparna Jordan, [employer] [phone] Patient/Caregiver Goals of Treatment: dc to home Potential Needs for Transition of Care: home health care Agency Referrals: I have met with the patient to: discuss discharge planning needs. provide the [facility], Office of Care Management letter from the Heating Element Repairer pertaining to rehab referrals. provide a letter describing our affiliations within [facility] and educate about their right to choose where referrals are sent. provide a list of Home Health Agencies / Durable Medical Equipment vendors which serve their preferred geographic area. provided patient with [facility] Star Quality Rating handout. They have requested referrals to: [facility] [address] [place] [address] Note routed to a Guest Room Attendant who will communicate referrals to facilities and [...] and assist with transition of care planning. Reian Greene RN CM, BSN, [facility]- Ext [phone] * Plan of Care - Binta Trinidad [...] Operative Note Patient Name: Karlos Garcia : [id number] MR#: [id number] Case Date: 02/17/2024 Surgeon: Surgeon(s) and Role: * Hayder Graham MD - Primary * Neftali Menon PA - Physician Charter Coordinator Preoperative diagnosis: CAD Postoperative diagnosis: CAD, intraoperative [...] mL Drains: Mediastinal and Left pleural Disposition: [facility] Condition: doing well without problems Attestation: Case Date: 02/17/2024 I performed this procedure without the involvement of a resident. HAYDER GRAHAM MD 02/17/2024 * Op Note - Hayder Graham MD - 02/17/2024 8:20 AM EDT [facility] Operative Note Patient Name: Karlos Garcia : [id number] MR#: [id number] Case Date: 02/17/2024 Surgeon: Surgeons and Role: * Hayder Graham MD - Primary * Neftali Menon PA - Physician Charter Coordinator Preoperative diagnosis: CAD Postoperative diagnosis: CAD, intraoperative [...] mL Drains: Mediastinal and Left pleural Disposition: [facility] Procedure Description: The patient was brought [...] AM EDT Office Visit Cardiology at [address] [address] Neftali Ernandez MD [facility] [address] Scheduled Orders Name Type Priority Associated Diagnoses [...] Aortic Valve Open W Cardiopulmonary Bypass Homogrf/Stent (55453) Yes 02/17/2024 7:28 AM EDT CAD Cabg, Artery-Vein, Two (76959) Yes 02/17/2024 7:28 AM EDT CAD Cabg, Arterial, Single (18445) Yes 02/17/2024 7:28 AM EDT CAD Endoscopy W/Video-Asst Vein [place], Cabg (32747) Yes 02/17/2024 7:28 AM EDT CAD POCT [...] MD CHEMISTRY ORDERABLE S [facility] [place] [address] * (ABNORMAL) Basic Metabolic Panel (non-fasting) (02/23/2024 [...] Carpio MD CHEMISTRY ORDERABLES [facility] [place] [address] * Potassium (02/22/2024 4:30 AM EDT) Potassium [...] MD CHEMISTRY ORDERABLE S [facility] [place] [address] * (ABNORMAL) Basic Metabolic Panel (non-fasting) (02/21/2024 [...] Carpio MD CHEMISTRY ORDERABLES [facility] [place] [address] * Lactate, whole blood, send to lab ([facility]) (02/21/2024 9:45 AM EDT) [facility] Lactate WB 2.0 0.5 - 2.2 mmol/L [facility] Blood 02/21/2024 9:45 AM EDT 02/21/2024 9:52 AM EDT Narrative Resulting Agency Comment Spec In Lab Hayder Graham MD CHEMISTRY ORDERABLE S Performing Organization Address [facility]/ZIP Co de Phone Number [facility] [place] [address] * (ABNORMAL) Hepatic Function Panel (02/21/2024 9:45 AM EDT) [facility] Protein, Total 5.7(L) 6.1 - 8.0 [...] MD CHEMISTRY ORDERABLE S Performing Organization Address City/[facility]/ZIP Co de Phone Number [facility] [place] [address] * Lipase (02/21/2024 9:45 AM EDT) Lipase 56 0 - 60 unit/L [facility] Blood 02/21/2024 9:45 AM EDT 02/21/2024 9:52 AM EDT Narrative Resulting Agency Comment Spec In Lab Hayder Graham MD CHEMISTRY ORDERABLE S Performing Organization Address City/[facility]/ZIP Co de Phone Number [facility] [place] [address] * Amylase (02/21/2024 9:45 AM EDT) Amylase 69 28 - 100 unit/L [facility] Blood 02/21/2024 9:45 AM EDT 02/21/2024 9:52 AM EDT Narrative Resulting Agency Comment Spec In Lab Hayder Graham MD CHEMISTRY ORDERABLE S Performing Organization Address [facility] Co de Phone Number [facility] [place] [address] * Potassium (02/21/2024 3:08 AM EDT) [facility] Potassium 3.8 3.5 - 5.0 mmol/L [facility] [...] MD CHEMISTRY ORDERABLE S Performing Organization Address City/[facility]/ZIP Co de Phone Number [facility] [place] [address] * XR Chest PA & Lateral (Generic) (02/20/2024 10:19 AM EDT) [facility] WORKSTATION ID [id number] RAD Anatomical Region Laterality Modality Chest N/A Digital Radiogra phy Impressions 02/20/2024 1:11 PM EDT Small pleural effusions. No pneumothorax Thank you for letting us participate in the care of this patient. ??If you are a health care provider and have any questions regarding this report, please contact the number below. ??For patients who have questions please contact the health geriatric care manager that requested your imaging first. ? Narrative 02/20/2024 1:11 PM EDT EXAMINATION: XR CHEST PA AND LATERAL (GENERIC) CLINICAL HISTORY: s/p AVR/CABGx3 TECHNIQUE: PA and lateral views of the chest COMPARISON: 02/17/2024 FINDINGS: Support devices: Interval removal of Buda-Kaila catheter, endotracheal tube and mediastinal chest tubes The cardiac silhouette is stable status post median sternotomy, CABG and aortic valve replacement. There are small pleural effusions. No pneumothorax. Procedure Note Rogerio Cruz MD - 02/20/2024 EXAMINATION: XR CHEST PA AND LATERAL (GENERIC) CLINICAL HISTORY: s/p AVR/CABGx3 TECHNIQUE: PA and lateral views of the chest COMPARISON: 02/17/2024 FINDINGS: Support devices: Interval removal of Buda-Kaila catheter, endotracheal tubeand mediastinal chest tubes The [...] patients who have questions please contactthe health geriatric care manager that requested your imaging first. Hayder Graham MD IMG DX ORDERABLES * Scan, Peripheral Blood (02/20/2024 4:23 AM EDT) Pathologist [facility] Plat estimate Decreased [facility] RBC Morphology Normal [facility] Blood 02/20/2024 4:23 AM EDT 02/20/2024 4:42 AM EDT Narrative Resulting Agency Comment Spec In Lab Minnie FRENCH HEMATOLOGY CECILIO ALEMAN [facility] [place] [address] * (ABNORMAL) Differential, Automated (02/20/2024 4:23 AM EDT) [facility] Neutrophil % 81.7 % [facility] Neutrophil Absolute 10.37(H) 1.70 - 6.10 x10(3)/mc L [facility] Lymph % 7.4 % [facility] Lymphocytes Abs 0.9 0.9 - 3.2 x10(3)/mc L [facility] Monocyte % 9.7 % [facility] Monocyte Abs 1.2(H) 0.3 - 0.9 x10(3)/mc L [facility] Eos % 0.1 % [facility] Eosinophils Abs 0.0 0.0 - 0.4 x10(3)/mc L [facility] Basophil % 0.2 % [facility] Baso Absolute [...] FRENCH HEMATOLOGY CECILIO ALEMAN [facility] [place] [address] * (ABNORMAL) Hemogram (02/20/2024 4:23 AM EDT) [...] [facility] NRBC% auto 0.0 % [facility] NRBC Absolute 0.000 0.000 - 0.000 x10(3)/mc L [facility] Blood 02/20/2024 4:23 AM EDT 02/20/2024 4:42 AM EDT Narrative Resulting Agency Comment Spec In Lab Minnie FRENCH HEMATOLOGY CECILIO ALEMAN [facility] [place] [address] * (ABNORMAL) Basic Metabolic Panel (non-fasting) (02/20/2024 [...] Performing Organization Address [facility] Co de Phone Number [facility] [place] [address] * Potassium (02/19/2024 3:57 AM EDT) Potassium [...] Performing Organization Address [facility] Co de Phone Number [facility] [place] [address] * POCT Glucose (02/18/2024 8:24 AM EDT) Glucose, POC 157 65 - 199 mg/dL [facility] Comment: Supplemental ranges: <140 mg/dL before meals <180 mg/dL all other times of the day Blood 02/18/2024 8:24 AM EDT 02/18/2024 8:24 AM EDT Hayder Graham MD POINT OF [place] [address] * Scan, Peripheral Blood (02/18/2024 1:40 AM EDT) Pathologist [facility] Plat estimate Decreased [facility] RBC Morphology Normal [facility] Blood 02/18/2024 1:40 AM EDT 02/18/2024 1:56 AM EDT Narrative Resulting Agency Comment Spec In Lab Neftali FRENCH HEMATOLOGY ORDER OLE Performing Organization Address City/[facility]/ZIP Co de Phone Number [facility] [place] [address] * (ABNORMAL) Differential, Automated (02/18/2024 1:40 AM EDT) [facility] Neutrophil % 87.1 % [facility] Neutrophil Absolute 15.03(H) 1.70 - 6.10 x10(3)/mc L [facility] Lymph % 3.0 % [facility] Lymphocytes Abs 0.5(L) 0.9 - 3.2 x10(3)/mc L [facility] Monocyte % 9.1 % [facility] Monocyte Abs 1.6(H) 0.3 - 0.9 x10(3)/mc L [facility] Eos % 0.0 % [facility] Eosinophils Abs 0.0 0.0 - 0.4 x10(3)/mc L [facility] Basophil % 0.2 % [facility] Baso Absolute [...] FRENCH HEMATOLOGY ORDER OLE [facility] [place] [address] * (ABNORMAL) Hemogram (02/18/2024 1:40 AM EDT) White Blood Cell 17.2(H) 4.0 - 9.5 x10(3)/[facility] Red Blood Cell 4.71 4.58 - 5.54 x10(6)/[facility] Hemoglobin 13.7 13.7 - 16.5 g/dL [facility] Hematocrit 39.2(L) 40.5 - 48.5 % [facility] Mean Cell Volume 83.2 82.9 - 93.1 [facility] Mean Cell Hemoglobin 29.1 27.5 [facility] NRBC% auto 0.0 % [facility] NRBC Absolute 0.000 0.000 - 0.000 x10(3)/ L [facility] Blood 02/18/2024 1:40 AM EDT 02/18/2024 1:56 AM EDT Narrative Resulting Agency Comment Spec In Lab Neftali FRENCH HEMATOLOGY ORDER OLE [facility] [place] [address] * (ABNORMAL) Basic Metabolic Panel (non-fasting) (02/18/2024 [...] MD CHEMISTRY ORDERABLE S [facility] [place] [address] * (ABNORMAL) Troponin (02/18/2024 1:40 AM EDT) [...] troponin value can be found in the [facility] Laboratory Test Catalog Troponin - [facility] Test Catalog Reference: Fourth [place] Definition of Myocardial Infarction. Journal of the [place] [employer] 2018;72:5329-1090 Blood 02/18/2024 1:40 AM EDT 02/18/2024 1:56 AM EDT Narrative Resulting Agency Comment Spec In Lab Hayder Graham MD CHEMISTRY ORDERABLE S [facility] [place] [address] * POCT Glucose (02/17/2024 8:13 PM EDT) Glucose, POC 142 65 - 199 mg/dL [facility] Comment: Supplemental ranges: <140 mg/dL before meals <180 mg/dL all other times of the day Blood 02/17/2024 8:13 PM EDT 02/17/2024 8:13 PM EDT Hayder Graham MD POINT OF CARE TEST ORDERABLES Performing Organization Address [facility] Co de Phone Number [facility] [place] [address] * POCT Glucose (02/17/2024 5:42 PM EDT) Glucose, POC 160 65 - 199 mg/dL [facility] Comment: Supplemental ranges: <140 mg/dL before meals <180 mg/dL all other times of the day Blood 02/17/2024 5:42 PM EDT 02/17/2024 5:42 PM EDT Hayder Graham MD POINT OF CARE TEST ORDERABLES Performing Organization Address [facility] Co de Phone Number [facility] [place] [address] * Hemoglobin (02/17/2024 5:42 PM EDT) Hemoglobin 13.7 13.7 - 16.5 g/dL [facility] Blood 02/17/2024 5:42 PM EDT 02/17/2024 6:10 PM EDT Narrative Resulting Agency Comment Spec In Lab Hayder Graham MD HEMATOLOGY ORDERABL ES Performing Organization Address City/[facility]/ZIP Co de Phone Number [facility] [place] [address] * Potassium (02/17/2024 5:42 PM EDT) Potassium [...] MD CHEMISTRY ORDERABLE S [facility] [place] [address] * (ABNORMAL) BLOOD GAS 2 ARTERIAL (02/17/2024 [...] [facility] FIO2 Art 40 % [facility] PF Ratio Art 195 [facility] Blood 02/17/2024 4:18 PM EDT 02/17/2024 4:18 PM EDT Hayder Graham MD POINT OF CARE TEST ORDERABLES [facility] [place] [address] * XR Chest One View (02/17/2024 1:44 PM EDT) Tomorrow WORKSTATION ID [id number] RAD Anatomical Region Laterality Modality Chest N/A Digital Radiogra phy Impressions 02/17/2024 2:12 PM EDT 1. ??No definite pleural fluid collection or pneumothorax. 2. ??Right IJ Buda-Kaila catheter tip terminates in a descending branch of the right pulmonary artery. Suggest catheter retraction. 3. ??Additional support lines and tubes as above. Thank you for letting us participate in the care of this patient. ??If you are a health care provider and have any questions regarding this report, please contact the number below. ??For patients who have questions please contact the health geriatric care manager that requested your imaging first. ? Electronically signed by: Denzel Hankins MD, [facility] ??([phone]), at 02/17/2024 2:12 PM Narrative 02/17/2024 2:12 PM EDT EXAMINATION: XR CHEST ONE VIEW CLINICAL HISTORY: s/p avr/cabg eval effusions TECHNIQUE: 1 view of the chest COMPARISON: Chest x-ray 01/09/2024, chest CT 02/03/2024 FINDINGS: ET tube tip terminates 5.2 cm above the carlos. Right IJ Buda-Kaila catheter tip terminates in a descending branch [...] 5.2 cm above the carlos. Right IJ Buda-Ganzcatheter tip terminates in a descending branch of [...] fluid collection or pneumothorax. 2. Right IJ Buda-Kaila catheter tip terminates in a descending branch ofthe right pulmonary artery. Suggest catheter retraction. 3. Additional support lines and tubes as above. Thank you for letting us participate in the care of this patient. If youare a health care provider and have any questions regarding this report,please contact the number below. For patients who have questions please contactthe health geriatric care manager that requested your imaging first. [...] [facility] FIO2 Art 100 % [facility] PF Ratio Art 320 [facility] Blood 02/17/2024 1:31 PM EDT 02/17/2024 1:31 PM EDT Hayder Graham MD POINT OF CARE TEST ORDERABLES Performing Organization Address City/State/[facility] Co de Phone Number [facility] [place] [address] * (ABNORMAL) Coox2 (02/17/2024 1:21 PM EDT) pO2, Coox 44 mmHg [facility] Hgb Blood Gas 13.1(L) 13.7 [...] OF CARE TEST ORDERABLES [facility] [place] [address] * (ABNORMAL) BLOOD GAS 2 ARTERIAL (02/17/2024 [...] TEST ORDERABLES Performing Organization Address [facility] Co de Phone Number [facility] [place] [address] * (ABNORMAL) Fibrinogen (02/17/2024 12:10 PM EDT) [...] Performing Organization Address [facility] Co de Phone Number [facility] [place] [address] * (ABNORMAL) Thrombin time (02/17/2024 12:10 PM [...] Performing Organization Address [facility] Co de Phone Number [facility] [place] [address] * APTT (02/17/2024 12:10 PM EDT) Partial [...] Performing Organization Address [facility] Co de Phone Number [facility] [place] [address] * (ABNORMAL) Prothrombin Time (02/17/2024 12:10 PM [...] MD HEMATOLOGY ORDERABLE S [facility] [place] [address] * (ABNORMAL) Hemogram (02/17/2024 12:10 PM EDT) [...] [facility] NRBC% auto 0.0 % [facility] NRBC Absolute 0.000 0.000 - 0.000 x10(3)/mc L [facility] Blood 02/17/2024 12:1 0 PM EDT 02/17/2024 12:19 PM EDT Narrative Resulting Agency Comment Spec In Lab Tara York MD HEMATOLOGY ORDERABLE S [facility] [place] [address] * (ABNORMAL) BLOOD GAS 2 ARTERIAL (02/17/2024 [...] mmol/L [facility] Comment: Noted by air quality instrument specialist. Please note: Patients with WBC [...] OF CARE TEST ORDERABLES [facility] [place] [address] * (ABNORMAL) BLOOD GAS 2 ARTERIAL (02/17/2024 [...] mmol/L [facility] Comment: Noted by air quality instrument specialist. Please note: Patients with WBC [...] TEST ORDERABLES Performing Organization Address [facility] Co de Phone Number [facility] [place] [address] * (ABNORMAL) Hemoglobin and Hematocrit, blood (02/17/2024 [...] ORDERABL ES Performing Organization Address [facility]/ZIP Co de Phone Number [facility] [place] [address] * (ABNORMAL) Platelet count (02/17/2024 11:04 AM EDT) Platelet 106(L) 145 - 357 x10(3)/mc L [facility] Immature Plt % 1.6 0.0 - 7.4 % [facility] Comment: Limitation of the Immature Platelet Fraction (IPF)-May be less reliable when the platelet count is less than 10q814/uL due to statistical imprecision. The IPF value [...] in a decreased state of production. References: [employer] The Clinical Value of the Immature Platelet Fraction (IPF) in Cell Recovery Document Number 10-1143 03/2011 [employer] The Role of the Immature Platelet Fraction (IPF) in the Differential Diagnosis of Thrombocytopenia, Document MKT-10-1209 V002/15/14 Blood 02/17/2024 11:0 4 AM EDT 02/17/2024 11:12 AM EDT Narrative Resulting Agency Comment Spec In Lab Hayder Graham MD HEMATOLOGY ORDERABL ES Performing Organization Address City/State/[facility] Co de Phone Number [facility] [place] [address] * (ABNORMAL) Fibrinogen (02/17/2024 11:04 AM EDT) [...] HEMATOLOGY ORDERABL ES [facility] [place] [address] * (ABNORMAL) BLOOD GAS 2 ARTERIAL (02/17/2024 [...] OF CARE TEST ORDERABLES [facility] [place] [address] * (ABNORMAL) BLOOD GAS 2 ARTERIAL (02/17/2024 [...] OF CARE TEST ORDERABLES [facility] [place] [id number] * Surgical Pathology Report (02/17/2024 10:01 AM EDT) Final Diagnosis [id number] ? Location: [facility]; [facility]; The signing pathologist has (i) examined the relevant preparation(s) for the specimen(s) and (ii) rendered or confirmed the diagnosis(es). . ?Surgical Pathology DIAGNOSIS Aortic valve leaflets, excision: Valve leaflets with myxoid degeneration, nodular fibrosis and dystrophic calcifications. Electronically signed by: ?Livier Montoya MD Verified: ??02/24/2024 13:49 ??Pathologist Performed at: ??-[facility] Dept[place], [place] [address] Heating Element Repairer: Job Brewer MD, FCAP, ??IA Certificate: [id number] SPECIMEN(S) SUBMITTED A - Aortic Valve Leaflets, [...] Sections Processing Blocks submitted for decalcification: A1. Fruit Farmer sections in 1 cassette labeled A1. ??ajw 02/24/2024 1:49 PM EDT [facility] AORTIC STRUCTURE / Unknown 02/17/2024 10:01 AM EDT 02/17/2024 10:01 AM EDT Hayder Graham MD PATHOLOGY/CYTOLOGY ORDERABLES [facility] [place] [address] * Specimen to Pathology (02/17/2024 10:01 AM EDT) AP Specimen 02/17/2024 10:0 1 AM EDT 02/17/2024 10:01 AM EDT Narrative [facility] - 02/17/2024 10:01 AM EDT Specimen requisition ordered. ??Separate Pathology report to follow Hayder Graham MD PATHOLOGY/CYTOLOGY ORDERABLES [facility] [place] [address] * (ABNORMAL) BLOOD GAS 2 ARTERIAL (02/17/2024 [...] OF CARE TEST ORDERABLES [facility] [place] [address] * (ABNORMAL) BLOOD GAS 2 VENOUS (02/17/2024 9:34 AM EDT) pH, Venous 7.22(Criti marquez) 7.32 - 7.42 [facility] Comment:Noted by air quality instrument specialist. PCO2, Venous 43 41 - 51 mmHg [facility] Comment:Noted by air quality instrument specialist. PO2, Venous 57(H) 25 - 40 mmHg [facility] Comment:Noted by air quality instrument specialist. Bicarbonate, Venous 17.1 mmol/L [facility] Comment:Noted by air quality instrument specialist. Base Excess, Venous -10.6 mmol/L [facility] Comment:Noted by air quality instrument specialist. Hgb Blood Gas 11.2(L) 13.7 - 16.5 g/dL [facility] Comment:Noted by air quality instrument specialist. Oxyhemoglobin, Venous 86.5 % [facility] Comment:Noted by air quality instrument specialist. Carboxyhemoglob in, Venous 0.3 % [facility] Comment: Noted by air quality instrument specialist. Nonsmokers: 0.5-1.5% COHB Smokers: Variable, but usually less than 10% Toxic: 20-30% COHB Lethal: Greater than 60% COHB Methemoglobin, Venous 0.0 <=1.5 % [facility] Comment:Noted by air quality instrument specialist. Na Whole Blood 156(H) 135 - 145 mmol/L [facility] Comment:Noted by air quality instrument specialist. K Whole Blood 5.5(H) 3.5 - 5.0 mmol/L [facility] Comment: Noted by air quality instrument specialist. Please note: Patients with WBC >100,000 may have falsely elevated Potassium levels. Contact the Clinical Chemistry Laboratory if there are any questions. ICa Whole Blood 1.03(L) 1.15 - 1.33 mmol/L [facility] Comment: Noted by air quality instrument specialist. Note: ??Total bilirubin higher than 20 mg/dL may lead to falsely low ionized calcium. CL Whole Blood 100 98 - 107 mmol/L [facility] Comment:Noted by air quality instrument specialist. Gluc Whole Bld 132 65 - 199 mg/dL [facility] Comment: Noted by air quality instrument specialist. Diabetes: >=200 mg/dL plus symptoms Lactate WB 1.0 0.5 - 2.2 mmol/L [facility] Comment:Noted by air quality instrument specialist. Blood Gas Source Venous [facility] Blood 02/17/2024 9:34 AM EDT 02/17/2024 9:34 AM EDT Hayder Graham MD POINT OF CARE TEST ORDERABLES [facility] [place] [address] * (ABNORMAL) BLOOD GAS 2 ARTERIAL (02/17/2024 [...] TEST ORDERABLES Performing Organization Address [facility] Co de Phone Number [facility] [place] [address] * POCT Glucose (02/17/2024 6:38 AM EDT) Glucose, POC 98 65 - 199 mg/dL [facility] Comment: Supplemental ranges: <140 mg/dL before meals <180 mg/dL all other times of the day Blood 02/17/2024 6:38 AM EDT 02/17/2024 6:38 AM EDT Hayder Graham MD POINT OF CARE TEST ORDERABLES Performing Organization Address [facility] Co de Phone Number [facility] [place] [address] * Transesophageal Echo/OR (02/17/2024 6:33 AM EDT) [...] [facility] [...] TARA YORK Referring Physician: APARNA JORDAN Tara Yokr MD ECHO ORDERABLES * Scan Doc: Implantable [...] Routine documented in this encounter Care Teams Customer Support Technician Relationship Specialty Start Date End Date Aparna Jordan APRN PCP - General Family Medicine 10/21/23 documented as of this encounter
--- OUTSIDE RECORDS SUMMARY | 2024-05-25 09:20 | XMS_ITS | Encounter Summary ---
Author Organization [facility] Address [facility] [place] [address] Care Team Providers Care Manager Marketing Communication Name Role Phone Vanessa Christian APRN Primary Care Provider [phone] Encounter Details Date Type Department Care Team [...] 11:00 AM EDT Office Visit Cardiology at [address] [place] [address] Neftali Ernandez MD [facility] [place] [address] documented as of this encounter Visit Diagnoses Not on filedocumented in this encounter Care Teams Manager Marketing Communication Relationship Specialty Start Date End Date Vanessa Christian APRN PCP - General Family Medicine 10/21/23 documented as of this encounter
--- OUTSIDE RECORDS SUMMARY | 2024-05-25 09:20 | XMS_ITS | Encounter Summary ---
Author Organization [facility]ly [facility] Address [facility] [place] [address] Care Team Providers Care Interactive Marketing Strategist Name Role Phone Vanessa Christian MAURI Primary Care Provider [phone] Encounter Details Date Type Department Care Team (Late st Contact Info) Description 02/14/2024 Orders [place] [id number] Zak Farmer MD [facility] [place] [address] Coronary artery disease, unspecified vessel or lesion type, unspecified whether angina present, unspecified whether kiowa tribe or transplanted heart (Primary Dx) Social History [...] 11:00 AM EDT Office Visit Cardiology at [address] [place] [phone] Neftali Ernandez MD [facility] [place] [place] [address] documented as of this encounter Results * EKG 12 Lead (03/12/2024 2:35 PM EDT) Ventricular rate 59 BPM MUSE SYSTEM Atrial Rate 59 BPM MUSE SYSTEM P-R Interval 190 ms MUSE SYSTEM QRS Duration 92 ms MUSE SYSTEM Q-T Interval 406 ms MUSE SYSTEM QTC Calculated (Bezet) 401 ms MUSE SYSTEM Calculated P [place] -12 degrees MUSE SYSTEM Calculated R [place] 24 degrees MUSE SYSTEM Calculated T [place] 74 degrees MUSE SYSTEM INTERPRETATION Sinus bradycardia T wave abnormality, consider anterior ischemia Abnormal ECG When compared with ECG of 17-FEB-2024 13:24, CA interval has decreased T wave inversion now evident in Anterior leads Confirmed by Paul Guzman ([id number]) on 03/15/2024 8:36:23 AM MUSE SYSTEM 03/12/2024 2:35 PM EDT 03/15/2024 8:36 AM EDT Zak Farmer MD ECG ORDERABLES MUSE SYSTEM * XR Chest PA & Lateral (Generic) (03/12/2024 1:42 PM EDT) WORKSTATION ID [id number] RAD Anatomical Region Laterality Modality Chest N/A [...] have questions please contact the health adult care manager that requested your imaging first. ? 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 Electronically signed by: Augie Sanchez MD, [facility]([phone]), at 03/13/2024 8:28 AM Zak Farmer MD IMG DX ORDERABLES documented in this encounter Visit Diagnoses Diagnosis Coronary artery disease, unspecified vessel or lesion type, unspecified whether angina present, unspecified whether kiowa tribe or transplanted heart- Primary Coronary artery disease, unspecified vessel or lesion type, unspecified whether angina present, unspecified whether kiowa tribe or transplanted heart documented in this encounter Care Teams Interactive Marketing Strategist Relationship Specialty Start Date End Date Vanessa Christian APRN PCP - General Family Medicine 10/21/23 documented as of this encounter
--- OUTSIDE RECORDS SUMMARY | 2024-05-25 09:20 | XMS_ITS | Encounter Summary ---
Author Organization [facility] [place] [address] Care Team Providers Care Flying Shear Operator Name Role Phone Victor M Lafleur MD Primary Care Provider [phone] Encounter Details Date Type Department Care Team (Late st Contact Info) Description 09/26/2023 Abstract Cardiology at [address] [address] Karen Billy, RN Nonrheumatic aortic [...] AM EDT Office Visit Cardiology at [address] [address] Neftali Ernandez MD [facility] [place] [address] documented as of this encounter Visit Diagnoses Diagnosis Nonrheumatic aortic valve stenosis Aortic valve disorders Nevus of face Benign neoplasm of skin of other and unspecified parts of face documented in this encounter Care Teams Flying Shear Operator Relationship Specialty Start Date End Date Victor M Lafleur MD PCP - General 10/02/13 10/20/23 documented as of this encounter
--- OUTSIDE RECORDS SUMMARY | 2024-05-25 09:20 | XMS_ITS | Encounter Summary ---
Author Organization [facility]ly [facility] [place] [address] Care Team Providers Care Clay Stain Mixer Name Role Phone Vanessa Christian APRN Primary Care Provider [phone] Encounter Details Date Type Department Care Team [...] AM EDT Office Visit Cardiology at [address] [place] [phone] Neftali Ernandez MD [facility] [place] [address] documented as of this encounter Visit Diagnoses Not on filedocumented in this encounter Care Teams Clay Stain Mixer Relationship Specialty Start Date End Date Vanessa Christian APRN PCP - General Family Medicine 10/21/23 documented as of this encounter
--- OUTSIDE RECORDS SUMMARY | 2024-05-25 09:20 | XMS_ITS | Encounter Summary ---
Author Organization [facility] [place] [address] Care Team Providers Care Steam Distribution Supervisor Name Role Phone Vanessa Christian MAURI Primary Care Provider [phone] Reason for Visit * Auth/Cert (Routine) Specialty [...] Rima Dickinson MD [facility] [place] [address] [facility] Referral ID Status Reason Start Date Expiration Date Visits Re quested Visits Authorized [id number] 1 1 Encounter Details Date Type Department Care Team (Late st Contact Info) Description 02/03/2024 10:00 AM EDT - 02/03/2024 11:00 AM EDT Surgery [place] [address] Saira Lua MD [facility] [place] [address] CARDIAC CATHETERIZATION Social History Tobacco Use Types [...] lbs Follow-up Visits Follow up with your state federal relations deputy director in 2-4 weeks Access Site 'Black and Blue' and tenderness is expected during the first week Call if you noted a mass (lump) greater than the size of a ellis Call Office with any Questions and if you have any of the following Clarence Lane M.D Interventional Last Ironer Rotary Driller Helper #: [phone] * Attachments The following attachments cannot be sent through Care Everywhere. * CAD (Coronary Artery Disease): General Info (Cape Verdean) * Coronary Angiogram: Post-op ([place]an) documented in this encounter Medications at Time [...] Lane MD - 02/03/2024 11:48 AM EDT [facility] Interventional Cardiology Adult Pre-Procedure H&P Update: Cardiac Catheterization Karlos Anthony [id number] 1960 Chief Complaint: Aortic stenosis HPI: Mr. [...] is inthe chart Clarence Lane MD Interventional Last Ironer 02/03/24 11:48 AM documented in this encounter Miscellaneous Notes * Brief Op Note - Clarence Lane MD - 02/03/2024 12:51 PM EDT Preliminary Cardiac Catheterization Procedure Note: Patient Name: Karlos Anthony : [id number] MR#: [id number] Case Date: 02/03/2024 Rotary Driller Helper: Surgeon(s) and Role: * Saira Lua MD [...] AM EDT Office Visit Cardiology at [address] [phone] Neftali Ernandez MD [facility] [place] [address] Scheduled Orders Name Type Priority Associated Diagnoses [...] Modality Other Narrative 02/12/2024 3:47 PM EDT ?[facility] ? Cardiac Catheterization/Intervention Report ? Patient Name: Patenaude, Karlos ? Procedure Date: 02/03/2024 ? A #: [id number] ? Primary Physician: Saira Lua ? Case #: [id number] ? File Name: [id number] ? Catheterization Order Number: [id number] ? [facility] ? Final Report [place], [place] ? Patient Name: ? Karlos Patenaude ? ID#: ?[id number] ? : ?1960 ? Procedure Date: ? February 03, 2024 ? Case #: ? [id number] ? Room: ? 5 ? Case Physician: [...] Procedure Note Saira Lua MD - 02/12/2024 [facility] Cardiac Catheterization/Intervention Report Patient Name: Karlos Anthony Procedure Date: 02/03/2024 A #: [id number] Primary Physician: Saira Lua Case #: [id number] File Name: [id number] Catheterization Order Number: [id number] [facility] FinalReport [place], [place] Patient Name: Karlos Anthony ID#:[id number] :1960 Procedure Date: February 03, 2024 Case [...] as ASA Class III. The [facility] clinical frailty scale is 3: Managing [...] (Bezet) 372 ms MUSE SYSTEM Calculated P [place] 59 degrees MUSE SYSTEM Calculated R [place] 34 degrees MUSE SYSTEM Calculated T [place] 63 degrees MUSE SYSTEM INTERPRETATION Sinus bradycardia [...] MD) documented in this encounter Care Teams Steam Distribution Supervisor Relationship Specialty Start Date End Date Vanessa Christian, MAURI PCP - General Family Medicine 10/21/23 documented as of this encounter
--- OUTSIDE RECORDS SUMMARY | 2024-05-25 09:20 | XMS_ITS | Encounter Summary ---
Author Organization [facility] Address [facility] [place] [address] Care Team Providers Care Feather Cutting Machine Feeder Name Role Phone Vanessa Christian PERENNIAL HOUSE MANAGER Primary Care Provider [phone] Reason for Referral * Diagnostic Test (Routine) - Closed Specialty Diagnoses / Procedures Referred By Contac t Referred To Contact Radiology Diagnoses Nonrheumatic aortic valve stenosis Procedures CT Chest wo Contrast (Generic) Louisa Reid PA [facility] [place] [address] [facility] [place] [address] Referral ID Status Reason Start Date Expiration Date V isits Requested Visits Authorized [id number] Closed Specialty Service Requested 01/10/2024 07/11/2025 1 1 Encounter Details Date Type Department Care Team (Late st Contact Info) Description 01/09/2024 Orders [place] [address] Zak Farmer MD [facility] [place] [address] Nonrheumatic aortic valve stenosis Social History Tobacco [...] 11:00 AM EDT Office Visit Cardiology at [address] [place] [address] Neftali Ernandez MD [facility] [place] [address] documented as of this encounter Results * CT Chest wo Contrast (Generic) (02/03/2024 7:44 AM EDT) [employer] WORKSTATION ID [id number] RAD Anatomical Region Laterality Modality Chest Computed [...] questions please contact the health health care liaison that requested your imaging first. ? Narrative [...] nodule along the minor fissure (series 302 cruub361) and a 8 mm right lower lobe [...] have questions please contactthe health health care liaison that requested your imaging first. Zka Farmer MD IMG CT ORDERABLES documented in this encounter Visit Diagnoses Diagnosis Nonrheumatic aortic valve stenosis Aortic valve disorders Nonrheumatic aortic valve stenosis Aortic valve disorders documented in this encounter Care Teams Feather Cutting Machine Feeder Relationship Specialty Start Date End Date Vanessa Christian APRN PCP - General Family Medicine 10/21/23 documented as of this encounter
--- OUTSIDE RECORDS SUMMARY | 2024-05-25 09:20 | XMS_ITS | Encounter Summary ---
Author Organization [facility] [place] [address] Care Team Providers Care Water Treatment Plant Operator Name Role Phone Vanessa Christian MAURI Primary Care Provider [phone] Reason for Visit * Auth/Cert (Routine) Specialty [...] W RHC (WRVU 5.9) Rima Dickinson MD [facility] [place] [address] [facility] Referral ID Status Reason Start Date Expiration Date Visits Re quested Visits Authorized [id number] 1 1 Encounter Details Date Type Department Care Team (Latest Contact Info) Description 02/03/2024 8:06 AM EDT - 02/03/2024 2:54 PM EDT Hospital Encounter [place] [address] Rima Dickinson MD [facility] [place] [address] Screening for cardiovascular condition; Aortic valve stenosis, [...] lbs Follow-up Visits Follow up with your insurance coordinator in 2-4 weeks Access Site 'Black and Blue' and tenderness is expected during the first week Call if you noted a mass (lump) greater than the size of a ellis Call Office with any Questions and if you have any of the following Clarence Lane M.D Interventional Operating Room Registered Nurse Nurses Supervisor #: [phone] * Attachments The following attachments cannot be sent through Care Everywhere. * CAD (Coronary Artery Disease): General Info (Vincentian) * Coronary Angiogram: Post-op (Vincentian) documented in this encounter Medications at Time [...] Lane MD - 02/03/2024 11:48 AM EDT [facility] Interventional Cardiology Adult Pre-Procedure H&P Update: Cardiac Catheterization Karlos Anthony [id number] 1960 Chief Complaint: Aortic stenosis HPI: Mr. [...] is inthe chart Clarence Lane MD Interventional Operating Room Registered Nurse 02/03/24 11:48 AM documented in this encounter Miscellaneous Notes * Brief Op Note - Clarence Lane MD - 02/03/2024 12:51 PM EDT Preliminary Cardiac Catheterization Procedure Note: Patient Name: Karlos Anthony : [id number] MR#: [id number] Case Date: 02/03/2024 Nurses Supervisor: Surgeon(s) and Role: * Saira Lua MD [...] AM EDT Office Visit Cardiology at [address] [place] [address] Neftali Ernandez MD [facility] [place] [address] Scheduled Orders Name Type Priority Associated Diagnoses [...] Modality Other Narrative 02/12/2024 3:47 PM EDT ?[facility] ? Cardiac Catheterization/Intervention Report ? Patient Name: Karlos Anthony ? Procedure Date: 02/03/2024 ? A #: [id number] ? Primary Physician: Saira Lua ? Case #: [id number] ? File Name: [id number] ? Catheterization Order Number: [id number] ? [facility] ? Final Report [place], [place] ? Patient Name: ? Karlos Patenaude ? ID#: ?[id number] ? : ?1960 ? Procedure Date: ? [...] Procedure Note Saira Lua MD - 02/12/2024 [facility] Cardiac Catheterization/Intervention Report Patient Name: Karlos Anthony Procedure Date: 02/03/2024 A #: [id number] Primary Physician: Saira Lua Case #: [id number] File Name: [id number] Catheterization Order Number: [id number] [facility] FinalReport [place], [place] Patient Name: Karlos Anthony ID#:[id number] :1960 Procedure Date: February 03, 2024 Case [...] was designated as ASA Class III. The [facility] clinical frailty scale is 3: Managing [...] (Bezet) 372 ms MUSE SYSTEM Calculated P Erin 59 degrees MUSE SYSTEM Calculated R Erin 34 degrees MUSE SYSTEM Calculated T Erin 63 degrees MUSE SYSTEM INTERPRETATION Sinus bradycardia [...] Routine 1232 (Given - Provid er: Rogerio Olvieros) iohexoL (Omnipaque) (350 mg/mL) solution PRN, Starting [...] MD) documented in this encounter Care Teams Water Treatment Plant Operator Relationship Specialty Start Date End Date Vanessa Christian APRN PCP - General Family Medicine 10/21/23 documented as of this encounter
--- OUTSIDE RECORDS SUMMARY | 2024-05-25 09:20 | XMS_ITS | Encounter Summary ---
Author Organization [facility] [place] [address] Care Team Providers Care Reverberatory Furnace Supervisor Name Role Phone Vanessa Christian MAURI Primary Care Provider [phone] Encounter Details Date Type Department Care Team (Latest Contact Info) Description 01/09/2024 3:00 PM EDT Laboratory [place] [phone] Nonrheumatic aortic valve stenosis Social History Tobacco [...] AM EDT Office Visit Cardiology at [address] [phone] Neftali Ernandez MD [facility] [address] [place] [address] documented as of this encounter Procedures Procedure Name Priority Date/Time Associated Diagnosis Comments ABORH RECHECK STATUS Routine 01/09/2024 2:58 PM EDT HEMOGRAM Routine 01/09/2024 2:58 PM EDT Nonrheumatic aortic valve stenosis DIFFERENTIAL, AUTOMATED Routine 01/09/2024 2:58 PM EDT Nonrheumatic aortic valve stenosis TYPE AND SCREEN, SDP (FUTURE SURGERY, [facility] SAME DAY PRO[facility] ONLY) Routine 01/09/2024 2:58 [...] CECILIO ALEMAN [facility] [place] [address] * Differential, Automated (01/09/2024 2:58 PM EDT) Neutrophil % 70.5 % [facility] Neutrophil Absolute 4.34 1.70 - 6.10 x10(3)/[facility] LABORATORY Lymph % 18.9 % [facility] Lymphocytes Abs 1.2 0.9 - 3.2 x10(3)/[facility] LABORATORY Monocyte % 8.0 % [facility] Monocyte Abs 0.5 0.3 - 0.9 x10(3)/[facility] LABORATORY Eos % 1.6 % [facility] Eosinophils Abs 0.1 0.0 - 0.4 x10(3)/[facility] LABORATORY Basophil % 0.5 % [facility] Baso Absolute 0.0 0.0 - 0.1 x10(3)/[facility] LABORATORY Immature Gran % 0.50 % [facility] Comment: Immature granulocytes(IG's)percentage and absolute count will include metamyelocytes, myelocytes, and promyelocytes. Blood smears from CBCs yielding IG's will be scanned manually for concordance. If this scan disagrees with the automated IG or if promyelocytes are noted, a manual differential will be performed. Immature Gran Absolute 0.03 0.00 - 0.04 x10(3)/[facility] LABORATORY Blood 01/09/2024 2:58 PM EDT 01/09/2024 3:03 PM EDT Narrative Resulting Agency Comment Spec In Lab Zka Farmer MD HEMATOLOGY ORDERABL ES [facility] [place] [address] * Hemogram (01/09/2024 2:58 PM EDT) White Blood Cell 6.2 4.0 - 9.5 x10(3)/[facility] LABORATORY Red Blood Cell 5.53 4.58 - 5.54 x10(6)/[facility] LABORATORY Hemoglobin 16.1 13.7 - 16.5 g/dL [facility] Hematocrit 46.9 40.5 - 48.5 % [facility] Mean Cell Volume 84.8 82.9 - 93.1 fL [facility] Mean Cell Hemoglobin 29.1 27.5 - 32.1 pg [facility] Mean Cell Hemoglobin Concentration 34.3 32.0 - 35.7 g/dL [facility] Platelet 187 145 - 357 x10(3)/[facility] LABORATORY RDW Standard Deviation 39.2 36.0 - 45.0 fL [facility] RDW coefficient of variation 12.6 11.4 - 13.8 % [facility] Mean Platelet Volume 9.5 7.6 - 12.9 fL [facility] NRBC% auto 0.0 % [facility] NRBC Absolute 0.000 0.000 - 0.000 x10(3)/[facility] LABORATORY Blood 01/09/2024 2:58 PM EDT 01/09/2024 3:03 PM EDT Narrative Resulting Agency Comment Spec In Lab Zak Farmer MD HEMATOLOGY ORDERABL ES [facility] [place] [address] * Basic Metabolic Panel (non-fasting) (01/09/2024 2:58 [...] ORDERABLE S [facility] [place] [address] * Hepatic Function Panel (01/09/2024 2:58 PM [...] S Performing Organization Address [facility] Co de Phone Number [facility] [place] [address] * Prothrombin Time (01/09/2024 2:58 PM EDT) [...] MD HEMATOLOGY ORDERABL ES Performing Organization Address [facility] Co de Phone Number [facility] [place] [address] * Type and Screen Future Surgery, [facility] SAME DAY PRO[facility] ONLY) (01/09/2024 2:58 PM EDT) Pathologist [facility] ABORH Type O NEGATIVE [facility] [...] BANK LAB ORDE RABLES Performing Organization Address City/[facility]/ZIP Co de Phone Number [facility] [place] [address] documented in this encounter Visit Diagnoses Diagnosis Nonrheumatic aortic valve stenosis Aortic valve disorders documented in this encounter Care Teams Reverberatory Furnace Supervisor Relationship Specialty Start Date End Date Vanessa Christian APRN PCP - General Family Medicine 10/21/23 documented as of this encounter
--- OUTSIDE RECORDS SUMMARY | 2024-05-25 09:20 | XMS_ITS | Encounter Summary ---
Author Organization [facility] [place] [address] Care Team Providers Care Parasitology Teacher Name Role Phone Vanessa Christian MAURI Primary Care Provider [phone] Reason for Visit * Auth/Cert (Routine) Specialty [...] ARTERIAL GRAFT (WRVU 7.93) Zak Farmer MD [facility] CARDIOTHORACIC [place] [address] [facility] Referral ID Status Reason Start Date Expiration Date Visits Re quested Visits Authorized [id number] 1 1 Encounter Details Date Type Department Care Team (Late st Contact Info) Description 02/17/2024 7:35 AM EDT Anesthesia Event Main Operating Room [facility] [place] [phone] Roman York MD [facility] [place] [address] Anesthesia Record Procedure Summary Procedure Name Responsible [...] by Sadiq Woo RN PIV 02/17/24; 0715; povj-aac-pikjmd catheter system; 18 gauge; cephalic vein (lateral [...] = 0.6 oz pur e alcohol) [facility] Utilities Answer Date Recorded In the past 12 months has th e electric, gas, oil, or water [employer] threatened to shut off services in your [...] place to sleep or slept in a correction (including now)? No 02/18/2024 DH IPV Inpatient [...] Procedure Summary Date: 02/17/24 Room / Location: [facility] OR [address] [place] [address] MAIN OR Anesthesia Start: 734 Anesthesia Stop: [...] shown include unfiled device data. Patient Location: [facility] Level of Consciousness: Sedated (Pharmacologic/Intentional) [...] 08/14/2023 ??? Nevus of face 09/26/2023 Right church No past surgical history on file. Social [...] AM EDT Office Visit Cardiology at [address] [place] [address] Neftali Ernandez MD [facility] [place] [address] documented as of this encounter Visit [...] 02/17/2024 9:05 AM EDT 4 mcg PHENYLephrine (Hilaroi-Synephrine) (80 mcg/mL) in sodium chloride 0.9% 250 [...] mg documented in this encounter Care Teams Parasitology Teacher Relationship Specialty Start Date End Date Vanessa Christian APRN PCP - General Family Medicine 10/21/23 documented as of this encounter
--- OUTSIDE RECORDS SUMMARY | 2024-05-25 09:20 | XMS_ITS | Encounter Summary ---
Author Organization [facility] [place] [address] Care Team Providers Care Grocery Clerk Stocking Name Role Phone Vanessa Christian APRN Primary Care Provider [phone] Encounter Details Date Type Department Care Team [...] AM EDT Office Visit Cardiology at [address] [place] [phone] Neftali Ernandez MD [facility] [place] [address] documented as of this encounter Visit Diagnoses Not on filedocumented in this encounter Care Teams Grocery Clerk Stocking Relationship Specialty Start Date End Date Vanessa Christian APRN PCP - General Family Medicine 10/21/23 documented as of this encounter
--- OUTSIDE RECORDS SUMMARY | 2024-05-25 09:20 | XMS_ITS | Encounter Summary ---
Author Organization [place] [place] [address] Care Team Providers Care Code Clerk Name Role Phone Vanessa Christian Lane DOTSON Primary Care Provider Encounter Details Date Type Department Care Team (Late st Contact Info) Description 01/09/2024 2:30 PM EDT Clinical Support Same Day [place] [phone] Social History Tobacco Use Types Packs/Day Years Used Date Smoking Tobacco: Former Cigarettes Smokeless Tobacco: Never Comments:Quit 15 + years ago Alcohol Use Standard Drinks/Week Comments Yes 0 (1 standard drink = 0.6 oz pur e alcohol) rare [facility] Inpatient Questions Answer Date Recorded Prevent [...] you tube link for a video about [facility] cardiac surgery. Instructed to bring the [...] type and screen performed while in the [facility]. Sent to Radiology for chest x-ray. Special medication instructions: None Procedure date: not booked. Darian documented in this encounter Plan of Treatment Upcoming Encounters Date Type Department Care Team (Late st Contact Info) Description 05/27/2024 11:00 AM EDT Office Visit Cardiology at [address] [place] [phone] Neftali Ernandez MD [facility] [address] documented as of this encounter Visit Diagnoses Not on filedocumented in this encounter Care Teams Code Clerk Relationship Specialty Start Date End Date Vanessa Christian APRN PCP - General Family Medicine 10/21/23 documented as of this encounter
--- OUTSIDE RECORDS SUMMARY | 2024-05-25 09:20 | XMS_ITS | Encounter Summary ---
Author Organization [facility] [place] [address] Care Team Providers Care Gas Or Water Meter Installer Name Role Phone Vanessa Christian APRN Primary Care Provider [phone] Encounter Details Date Type Department Care Team (Late st Contact Info) Description 10/21/2023 Abstract Cardiology at [address] [phone] Adam Mayes RN Social History Tobacco Use [...] 11:00 AM EDT Office Visit Cardiology at [address] [phone] Neftali Ernandez MD [facility] [place] [address] documented as of this encounter Visit Diagnoses Not on filedocumented in this encounter Care Teams Gas Or Water Meter Installer Relationship Specialty Start Date End Date Vanessa Christian APRN PCP - General Family Medicine 10/21/23 documented as of this encounter
--- OUTSIDE RECORDS SUMMARY | 2024-05-25 09:20 | XMS_ITS | Encounter Summary ---
Author Organization [place] [address] Care Team Providers Care Rocket Propellant Plant Supervisor Name Role Phone Vanessa Christian Lane DOTSON Primary Care Provider [phone] Reason for Referral * Diagnostic Test (Routine) - Closed Specialty Diagnoses / Procedures Referred By Contac t Referred To Contact Radiology Diagnoses Nonrheumatic aortic valve stenosis Procedures CT Chest wo Contrast (Generic) Louisa Cho PA [facility] [place] [address] [facility] [place] [address] Referral ID Status Reason Start Date Expiration Date V isits Requested Visits Authorized [id number] Closed Specialty Service Requested 01/10/2024 07/11/2025 1 1 Reason for Visit * Diagnostic Test (Routine) - Closed Specialty Diagnoses / Procedures Referred By Contac t Referred To Contact Radiology Diagnoses Nonrheumatic aortic valve stenosis Procedures CT Chest wo Contrast (Generic) Louisa Cho PA [facility] [place] [address] [facility] [place] [address] Referral ID Status Reason Start Date Expiration Date V isits Requested Visits Authorized [id number] Closed Specialty Service Requested 01/10/2024 07/11/2025 1 1 Encounter Details Date Type Department Care Team (Latest Contact Info) Description 02/03/2024 7:36 AM EDT - 02/03/2024 8:05 AM EDT Hospital [place] [address] Zak Farmer MD [facility] [place] [address] Nonrheumatic aortic valve stenosis Discharge Disposition: Home Social History Tobacco Use Types Packs/Day Years Used Date Smoking Tobacco: Former Cigarettes Smokeless Tobacco: Never Comments:Quit 15 + years ago Alcohol Use Standard Drinks/Week Comments Yes 0 (1 standard drink = 0.6 oz pur e alcohol) rare [facility] Inpatient Questions Answer Date Recorded Does Anyone [...] AM EDT Office Visit Cardiology at [address] [place] [address] Neftali Ernandez MD [facility] [place] [address] documented as of this encounter Procedures Procedure Name Priority Date/Time Associated Diagnosis Comments CT CHEST WO CONTRAST (GENERIC) Routine 02/03/2024 7:44 AM EDT Nonrheumatic aortic valve stenosis documented in this encounter Results * CT Chest wo Contrast (Generic) (02/03/2024 7:44 AM EDT) [employer] Signature WORKSTATION ID [id number] RAD Anatomical Region Laterality Modality Chest Computed [...] who have questions please contact the health acute care certified nursing assistant that requested your imaging first. ? Electronically signed by: Rogerio Wright MD, [facility] ([phone]), at 02/03/2024 10:00 AM Narrative 02/03/2024 10:00 [...] nodule along the minor fissure (series 302 [id number]) and a 8 mm right lower lobe [...] resident's interpretationand agree with the findings, Rogerio Wrihgt MD at 02/03/2024 10:00 AM Thank you for letting us participate in the care of this patient. If youare a health care provider and have any questions regarding this report,please contact the number below. For patients who have questions please contactthe health acute care certified nursing assistant that requested your imaging first. Electronically signed by: Rogerio Wright MD, [facility]([phone]), at 02/03/2024 10:00 AM Zak Farmer MD IMG CT ORDERABLES documented in this encounter Visit Diagnoses Diagnosis Nonrheumatic aortic valve stenosis Aortic valve disorders documented in this encounter Care Teams Rocket Propellant Plant Supervisor Relationship Specialty Start Date End Date Vanessa Christian APRN PCP - General Family Medicine 10/21/23 documented as of this encounter
--- OUTSIDE RECORDS SUMMARY | 2024-05-25 09:20 | XMS_ITS | Data Portability ---
Author Organization [place] [facility] Address [address] [place] [address] Care Team Providers Care Electromechanical Technologist Name Role Phone VANESSA JORDAN Primary Care Provider Assessment No assessment recorded. Plan of Treatment Reminders Order Date Submit Date Provider Last Modified By Organization Details Last Modified Time Details Appointments None recorded . Lab magnesiu m, serum or plasma 024 12/18/19 24 [email or web address] [facility] (Registration ), [address] [place] [address] [place], [address], 4 14:25:25 BMP, serum or plasma 024 12/18/19 24 [email or web address] [facility] (Registration ), [address] [place] [address] [place], [address], 4 14:25:24 Referral None recorded . Procedures None recorded . Surgeries None recorded . Imaging None recorded . Medication Orders None recorded . Patient TargetsNo targets recorded. Patient Instructions Encounter Date Encounter Id Patient Instructions Last Modified By Organization Details Last Modified Time 09/19/2023 [id number] SCHEDULE FOLLOW UP IN 3 MONTHS IF YOU DONT HEAR FROM THE CARDIOLOGY DEPT THIS WEEK CALL [facility] FINANCE CONSULTANT AND LET THEM KNOW IF YOUR BREATHING GETS WORSE- GO TO THE ER, DONT OVER DO THINGS PHYSICALLY EXPECT A CALL FROM SARA ZAFAR RE: UPDATING YOUR POWER OF CANCER REGISTRAR (NEED 2 WITNESSED SIGNATURES) Not available 09/19/2023 09:25:07 12/18/2023 [id number] Karlos: expect a call from the STructural heart team at [facility] drink at least 6 glasses of water a day. checking kidney function and magnesium labs today will mail home. follow up in 3 months for BPH, Aortic stenosis. 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 for Referral [facility]unk Consultant Referral for Roland ateral hearing loss Referring Physician: Vanessa Jordan, Family Medicine, Encounter Date: 02/26/2024 Results Created Date Observation Date Name Description Value Unit Range Abnormal Flag LastModifiedBy Organization Detail LastModifiedTime 12/18/1912/18/2023 LASIC METAB OLIC PANEL calcium 9.3 mg/dL 8.5-10 .1 normal Not Available [address] [place], [address] 12/18/2023 17:09:55 12/18/1912/18/2023 LASIC METAB OLIC PANEL glucose 90 mg/dL 74-106 normal Not Available [address] [place], [address] 12/18/2023 17:09:55 12/18/19 24 12/18/2023 LASIC METAB OLIC PANEL BUN 14 mg/dL 7-18 normal Not Available [address] [place], [address] 12/18/2023 17:09:55 12/18/19 24 12/18/2023 LASIC METAB OLIC PANEL creatinine 1.0 mg/dL 0.70-1 .30 normal Not Available [address] [place], [address] 12/18/2023 17:09:55 12/18/19 24 12/18/2023 LASIC METAB OLIC PANEL estimated GFR 84.05 mL/min /1.73m 2 Not Available [address] [place], [address] 12/18/2023 17:09:55 12/18/19 24 12/18/2023 LASIC METAB OLIC PANEL sodium 139 mmol/ L 136-14 5 normal Not Available [address] [place], [address] 12/18/2023 17:09:55 12/18/19 24 12/18/2023 LASIC METAB OLIC PANEL potassium 4.9 mmol/ L 3.5-5. 1 normal Not Available [address] [place], [address] 12/18/2023 17:09:55 12/18/19 24 12/18/2023 LASIC METAB OLIC PANEL chloride 104 mmol/ L 98-107 normal Not Available [address] [place], [address] 12/18/2023 17:09:55 12/18/19 24 12/18/2023 LASIC METAB OLIC PANEL CO2 30.9 mmol/ L 21.0-3 2.0 normal Not Available [address] [place], [address] 12/18/2023 17:09:55 12/18/19 24 12/18/2023 LASIC METAB OLIC PANEL anion gap 4.1 mmol/ L 3-11 normal Not Available [address] [place], [address] 12/18/2023 17:09:55 12/18/19 24 12/18/2023 MAGNE SIUM magnesium 1.8 mg/dL 1.8-2. 4 normal Not Available [address] [place], [address] 12/18/2023 17:09:56 09/11/2012/05/2022 trans -thor acic echoc ardio gram (TTE) (PROC ) No observ ation record ed. [email or web address] [facility] Xray [address] , [place], [address], 09/13/2023 09:29:52 09/11/20 23 06/01/2022 XR, hip, unila teral No observ ation record ed. [email or web address] Not Available 09/13/2023 09:29:19 09/11/20 23 12/06/2019 US, echoc ardio gram No observ ation record ed. [email or web address] [facility]- Cardiology [address] [place] [address] [place], [address], 09/13/2023 09:28:49 Result Notes None recorded. Problems Name Status Onset Date Resolution Date Notes Provider Name and Address Organization Details Recorded Time Gastroesophageal reflux disease without esophagitis Active 2022 Problem Code: K21.9; Problem Code Type: ICD-10; Not Available [facility] 4 05:35:57 Glaucoma Active 2022 Problem Code: H40.9; Problem Code Type: ICD-10; Not Available [facility] 4 05:35:57 Hyperlipidemia Active 2022 Problem Code: E78.5; Problem Code Type: ICD-10; Not Available [facility] 4 05:35:57 Essential hypertension Active 2022 Problem Code: I10; Problem Code Type: ICD-10; Not Available [facility] 4 05:35:57 Pain of left hip joint Active 2022 Problem Code: M25.552; Problem Code Type: ICD-10; Not Available [facility] 4 05:35:57 Idiopathic osteoarthritis Active 2022 Problem Code: M16.12; Problem Code Type: ICD-10; Not Available [facility] 4 05:35:57 Inguinal hernia Active 2022 Problem Code: K40.90; Problem Code Type: ICD-10; Not Available [facility] 4 05:35:57 Heart murmur Active 2022 Problem Code: R01.1; Problem Code Type: ICD-10; Not Available [facility] 4 05:35:57 Dyspnea Active 2022 Problem Code: R06.09; Problem Code Type: ICD-10; Not Available [facility] 4 05:35:57 Chest pain Active 2022 Problem Code: R07.89; Problem Code Type: ICD-10; Not Available [facility] 4 05:35:57 Melanocytic nevus Active 2022 Problem Code: D22.9; Problem Code Type: ICD-10; Not Available [facility] 4 05:35:57 Aortic stenosis, non-rheumatic Active 2022 Problem Code: I35.0; Problem Code Type: ICD-10; Not Available [facility] 4 05:35:58 Aortic stenosis, non-rheumatic Completed 202208/14/2023 Problem Code: I35.0; Problem Code Type: ICD-10; Not Available [facility] 4 05:35:58 Indigestion Active 2023 GLORIA CAMP LPN null, [facility] 4 08:48:57 Coronary artery bypass grafts x 3 Active 2023 Kelly Duran RN null, [facility] 4 10:30:01 At increased risk of atrial fibrillation Active [address], [facility] [address] , [facility] 4 13:52:01 Anemia Active [address], [facility] [address] [facility] 4 13:54:39 Problem Notes None recorded. Procedures Surgical History Date Name Laterality Status Provider Name and Address Organization Details Recorded Time 4 coronary artery bypass graft completed Hudson Reeder MA null, [facility] 03/04/2024 14:54:09 Imaging Results Imaging Date Name Status LastModified by Organization Details LastModified Time 12/05/2022 trans-thoracic echocardiogram (TTE) (PROC) completed [address] Xray [address] [place], [place], [address], 09/13/2023 09:29:52 06/01/2022 XR, hip, unilateral [place] [address] Information not available 09/13/2023 09:29:19 12/06/2019 US, echocardiogram completed [address]- Cardiology [address] [facility] , [place], [address], 09/13/2023 09:28:49 Procedure Notes None recorded. Medical [...] Take 1 hr prior. Started by [facility]. Not Available Not Available Not Available doxycycli [...] MOUTH DAILY 02/24 completed stopped by [facility] Not Available Not Available Not Available brimonidi [...] by oral route as needed. active [facility] Not Available Not Available No t Available Aspirin Childrens 81 mg chewable tablet Take 1 tablet by mouth once a day active Not Available Not Available No t Available lisinopri l 5 mg tablet TAKE 1 TABLET BY MOUTH EVERY DAY 02/24 completed stopped by [facility] Not Available Not Available Not Available mupirocin [...] by oral route. active started by [facility] Not Available Not Available Not Available dorzolami de 2 % (PF) eye drops 1 drop both eyes bid 12/17 completed Not Available Not Available Not Available Vitals Date Recorded Body weight Body mass index (BMI) Body height Heart rate Systolic blood pressure Diastolic blood pressure Provider Name and Address Organization Details Last Updated DateTime 3 55302.7 8 g 23.7 kg/m2 167.64 cm 64 /min 110 mm[Hg] 60 mm[Hg] GLORIA CAMP LPN [facility] 3 08:48:49 Date Recorded Body height Body mass index (BMI) Body weight Heart rate Systolic blood pressure Diastolic blood pressure Provider Name and Address Organization Details Last Updated DateTime 4 167.64 cm 24.6 kg/m2 69503.4 4 g 60 /min 112 mm[Hg] 80 mm[Hg] GLORIA CAMP LPN [facility] 4 08:38:13 Date Recorded Body height Body mass index (BMI) Body weight Heart rate Oxygen saturation Oxygen saturation in Arterial blood by Pulse oximetry Systolic blood pressure Diastolic blood pressure Provider Name and Address Organization Details Last Updated DateTime 4 167.64 cm 22.6 kg/m2 71775.6 5 g 63 /min 99 % 99 % 102 mm[Hg] 54 mm[Hg] Hudson Reeder MA [facility] 4 10:27:28 Social History Question Answer Notes LastModified by Organizat ion Details LastModified Time Tobacco Smoking Status Former Smoker Hudson Reeder MA [facility], [place] - [facility]. 03/06/2024 10:24:50 Do You Have An Advance Directive? Yes Registered 08/15/23 Updated 01/12/24 Information not available 01/15/2024 When Did You Quit Smoking? 11-15years sincelastc igarette [email or web address] Information not available 03/06/2024 Do You Have A Medical Power Of Material Control Manager? Yes Received 08/30/23, Scanned. Copies Sent To [facility] And Patient 09/02/23. Information not available 09/02/2023 What Was The Date Of Your Most Recent Tobacco Screening? 03/06/2024 [email or web address] Information not available 03/06/2024 What Is Your Current Pack Years? 30ormorepa ckyears [email or web address] Information not available 03/06/2024 How Much Tobacco Do You Smoke? 1 PPD [email or web address] Information not available 03/06/2024 How Many Years Have You Smoked Tobacco? 40 [email or web address] Information not available 03/06/2024 Do You Or Have You Ever Used Any Other Forms Of Tobacco Or Nicotine? No [email or web address] Information not available 03/06/2024 Sex: Male Functional [...] Recorded Time Tdap 08/26/2013 completed Not Available [facility] 05:30:17 Td(adult) unspecified formulation 11/21/2022 completed Not Available [facility] 10/18/2023 05:30:17 COVID-19, mRNA, LNP-S, PF, 100 mcg/0.5mL dose or 50 mcg/0.25mL dose 01/24/2021 completed Not Available [facility] 10/18/19 05:30:18 COVID-19, mRNA, LNP-S, PF, 100 mcg/0.5mL dose or 50 mcg/0.25mL dose 02/21/2021 completed Not Available [facility] 10/18/19 05:30:18 COVID-19, mRNA, LNP-S, PF, 100 mcg/0.5mL dose or 50 mcg/0.25mL dose 09/11/2021 completed Not Available [facility] 10/18/19 05:30:18 influenza, unspecified formulation 07/26/2021 completed Not Available [facility] 10/18/2023 05:30:18 influenza, unspecified formulation 07/26/2022 completed Not Available [facility] 10/18/2023 05:30:18 influenza, unspecified formulation 07/28/2020 completed Not Available [facility] 10/18/2023 05:30:18 influenza, unspecified formulation 08/05/2019 completed Not Available [facility] 10/18/2023 05:30:18 influenza, unspecified formulation 08/12/2018 completed Not Available [facility] 10/18/2023 05:30:18 Past Encounters Encounter ID Performer Location Encounter Start Date Encounter Closed Date Diagnosis/Indication Diagnosis SNOMED-CT Code [id number] VANESSA JORDAN [address] [address] 09/19/2023 08:39:51 09/19/2023 09:17:42 Aortic valve stenosis 27516646 Essential hypertension 31237280 [id number] VANESSA JORDAN [address] [address] 12/18/2023 08:23:47 12/18/2023 09:29:09 Aortic stenosis, non-rheumatic 158288390 Essential hypertension 83670512 Nonulcer dyspepsia 27952 07 Cramp in lower leg 10890 8000 [id number] TATYANA LEDEZMA MD [address] [address] 03/06/2024 10:15:07 03/06/2024 11:14:28 Postoperative visit [id number] Aortic rosa m nosis, non-rheumatic 258826762 Stented co ronary artery 494582335 At [facility] ed risk of atrial fibrillation 879305527 Anemia 680070985 Health Concerns Section Related Observation LastModified by Organization Detai ls LastModified Time None Recorded Concern Status LastModified by Organization Details LastModified Time None Recorded Advance Directives Directive Y: Registered 08/15/23Updated 01/12/24 Payers Encounter Date Sequence Insurance Name Policy Number Policy Alicia Covered Member ID Alicia Member ID Guarantor Name 12/18/2023 1 [facility] [id number] Karlos C Patenaude [id number] Karlos C Patenaude 03/06/2024 1 UM [id number] Karlos C Patenaude [id number] Karlos C Patenaude Notes Date Note Type Note Provider Name and Address Organization Details Recorded Time 09/19/2023 text/html HPI Notes: 63-year-old man here for follow-up hypertension, severe aortic stenosis., He works full-time at [employer]. He lives at home with his dog. He has not heard from [facility] cardiology? referred mid-August. He did decrease his lisinopril to 5 mg, home SBPs running 110- 138, no change in slight lightheadedness with change position. He does continue to get dyspnea on exertion, denies chest pain, resolves fairly quickly no peripheral edema. 12/05/2022 [facility] transthoracic echocardiogram; there is moderate to severe aortic stenosis with disparate indicators. The calculated valve area is 0.8 cm2 is consistent with severe stenosis. Planimetry confirms valve area to 0.9 cm2. The mean gradient of 28 mmHg and peak velocity of 3.6M/S are consistent with moderate stenosis. There is trivial to mild aortic insufficiency. VANESSA JORDAN, AMRITA [address], [place], [address], [facility]. 09/19/2023 13:31:38 12/18/2023 text/html HPI Notes: 63-year-old man here for follow-up hypertension, severe aortic stenosis., He works full-time at [employer]. He lives at home with his dog. 12/05/2022 [facility] transthoracic echocardiogram; there is moderate to [...] repair a number of years ago at [facility], it is starting to cause some discomfort. Reports leg cramps at nighttime intermittently, improves when he has a Gatorade during the daytime and Ovaltine in his coffee. [address], [place], [address], [facility], [facility]. 12/18/2023 11:43:00 03/06/2024 text/html HPI Notes: Ana Paula marlow is here today for a postop evaluation TATYANA LEDEZMA MD [address], [place], [address], [facility], [facility]. 03/08/2024 13:57:34
--- OUTSIDE RECORDS SUMMARY | 2024-05-25 09:20 | XMS_ITS | Encounter Summary ---
Author Organization [facility] [place] [address] Care Team Providers Care Scaffolder Name Role Phone Vanessa Christian APRN Primary Care Provider [phone] Encounter Details Date Type Department Care Team (Late st Contact Info) Description 10/21/2023 Abstract Cardiology at [address] [id number] Adam Mayes RN Social History Tobacco Use [...] AM EDT Office Visit Cardiology at [address] [place] [address] Neftali Ernandez MD [facility] [place] [address] documented as of this encounter Visit Diagnoses Not on filedocumented in this encounter Care Teams Scaffolder Relationship Specialty Start Date End Date Vanessa Christian APRN PCP - General Family Medicine 10/21/23 documented as of this encounter
--- OUTSIDE RECORDS SUMMARY | 2024-05-25 09:20 | XMS_ITS | Encounter Summary ---
[place] [address] Care Team Providers Care Gas Furnace Installer Name Role Phone Victor M Lafleur MD Primary Care Provider [phone] Reason for Visit * Reason Onset Date Comments Referral 09/20/2023 Encounter Details Date Type Department Care Team (Late st Contact Info) Description 09/20/2023 Telephone Cardiology at [address] [address] Karen Billy, base cloth inspector Social History Tobacco Use Types Packs/Day Years [...] 11:00 AM EDT Office Visit Cardiology at [address] [place] [address] Neftali Ernandez MD [facility] [place] [address] documented as of this encounter Visit Diagnoses Not on filedocumented in this encounter Care Teams Gas Furnace Installer Relationship Specialty Start Date End Date Victor M Lafleur MD PCP - General 10/02/13 10/20/23 documented as of this encounter
--- OUTSIDE RECORDS SUMMARY | 2024-05-25 09:20 | XMS_ITS | Encounter Summary ---
Author Organization [facility] Address [facility] [place] [id number] Care Team Providers Care Home Appliance Technician Name Role Phone Vanessa Christian MAURI Primary Care Provider [phone] Reason for Referral * Consultation (Routine) - Closed Specialty Diagnoses / Procedures Referred By Contac t Referred To Contact Cardiac Surgery Diagnoses Nonrheumatic aortic valve stenosis significant - TAVR ( defers to Card Surg d/t age) Errol Loya MD [facility] [place] [address] Zak Farmer MD [facility] [place] [address] Referral ID Status Reason Start Date Expiration Date V isits Requested Visits Authorized [id number] Closed Consult, Test & Treat 10/21/2023 10/20/2024 1 1 Reason for Visit * Reason Comments Chest Pain Shortness of Breath Aortic Stenosis Encounter Details Date Type Department Care Team (Late st Contact Info) Description 10/21/2023 1:20 PM EST Office Visit Cardiology at [address] [address] Errol Loya MD [facility] [place] [address] Nonrheumatic aortic valve stenosis Social History Tobacco [...] Problem List Diagnosis Aortic stenosis 12/2022 TTE ([facility]): VITA 0.8-0.9 cm2 (MG 28 mmHg, DOI 3.6 m/s, SVI 35 cc/m2). Trace regurgitation. Normal bi-v s/f, no other valve findings Gastroesophageal reflux Nevus of face Right church Hypertension HLD (hyperlipidemia) MEDICATIONS: Current Outpatient Medications [...] the meantime will refer to SHT at [facility] for further evaluation. Logistics and preliminary review [...] the meantime will refer to SHT at [facility] for further evaluation. Logistics and preliminary review [...] AM EDT Office Visit Cardiology at [address] [place] [address] Errol Loya MD [facility] [place] [address] Scheduled Referrals Name Type Priority Associated Diagnoses Order Schedule Amb Referral to Structural Heart Outpatient Referral Routine Nonrheumatic aortic valve stenosis Ordered: 10/21/2023 documented as of this encounter Visit Diagnoses Diagnosis Nonrheumatic aortic valve stenosis Aortic valve disorders documented in this encounter Care Teams Home Appliance Technician Relationship Specialty Start Date End Date Vanessa Christian APRN PCP - General Family Medicine 10/21/23 documented as of this encounter
--- OUTSIDE RECORDS SUMMARY | 2024-05-25 09:20 | XMS_ITS | Encounter Summary ---
Author Organization [facility] [place] [address] Care Team Providers Care Road Traffic Controller Name Role Phone Vanessa Christian APRN Primary Care Provider [phone] Encounter Details Date Type Department Care Team (Late st Contact Info) Description 12/26/2023 Notes Only Cardiology at [address] [address] Neftali Ernandez MD [facility] [place] [address] Social History Tobacco Use Types Packs/Day Years [...] 1:37 PM EDT Echocardiogram images reviewed from [facility]. Indeed, the aortic valve appears severely stenotic. Cannotrule out bicuspid valve documented in this encounter Plan of Treatment Upcoming Encounters Date Type Department Care Team (Late st Contact Info) Description 05/27/2024 11:00 AM EDT Office Visit Cardiology at [address] [address] Neftali Ernandez MD [facility] [place] [address] documented as of this encounter Visit Diagnoses Not on filedocumented in this encounter Care Teams Road Traffic Controller Relationship Specialty Start Date End Date Vanessa Christian APRN PCP - General Family Medicine 10/21/23 documented as of this encounter
--- OUTSIDE RECORDS SUMMARY | 2024-05-25 09:20 | XMS_ITS | Encounter Summary ---
Author Organization [facility] Address [facility] [place] [address] Care Team Providers Care Quality Assurance Engineer Name Role Phone Vanessa Christian MAURI Primary Care Provider [phone] Encounter Details Date Type Department Care Team (Latest Contact Info) Description 01/09/2024 3:02 PM EDT - 01/09/2024 11:59 PM EDT Hospital Encounter XRay at [address] [place] [address] Zak Farmer MD [facility] CARDIOTHORAC[place] [address] Nonrheumatic aortic valve stenosis Discharge Disposition: Home Social History Tobacco Use Types Packs/Day Years Used Date Smoking Tobacco: Former Cigarettes Smokeless Tobacco: Never Comments:Quit 15 + years ago Alcohol Use Standard Drinks/Week Comments Yes 0 (1 standard drink = 0.6 oz pur e alcohol) rare [facility] Inpatient Questions Answer Date Recorded Prevent [...] AM EDT Office Visit Cardiology at [address] [place] [address] Neftali Ernandez MD [facility] [address] documented as of this encounter Procedures Procedure [...] have questions please contact the health career portals teacher that requested your imaging first. ? [...] who have questions please contactthe health career portals teacher that requested your imaging first. Zak Farmer MD IMG DX ORDERABLES documented in this encounter Visit Diagnoses Diagnosis Nonrheumatic aortic valve stenosis Aortic valve disorders documented in this encounter Care Teams Quality Assurance Engineer Relationship Specialty Start Date End Date Vanessa Christian APRN PCP - General Family Medicine 10/21/23 documented as of this encounter
--- OUTSIDE RECORDS SUMMARY | 2024-05-25 09:20 | XMS_ITS | Encounter Summary ---
Author Organization [facility] Address [facility] [place] [address] Care Team Providers Care Dog Trainer Name Role Phone Vanessa Christian MAURI Primary Care Provider [phone] Reason for Visit * Consultation (Routine) - Closed Specialty Diagnoses / Procedures Referred By Contac t Referred To Contact Cardiac Surgery Diagnoses Nonrheumatic aortic valve stenosis significant - TAVR ( defers to Card Surg d/t age) Neftali Ernandez MD [facility] [place] [address] Zak Farmer MD [facility] [place] [address] Referral ID Status Reason Start Date Expiration Date V isits Requested Visits Authorized [id number] Closed Consult, Test & Treat 10/21/2023 10/20/2024 1 1 Encounter Details Date Type Department Care Team (Late st Contact Info) Description 01/09/2024 1:40 PM EDT Office Visit [place] [address] Zak Farmer MD [facility] [place] [address] Nonrheumatic aortic valve stenosis Social [...] office. Best personal regards, Zak Farmer MD [phone] In aggregate 55 minutes were spent evaluating [...] AM EDT Office Visit Cardiology at [address] [place] [phone] Neftali Ernandez MD [facility] [place] [address] documented as of this encounter Results * [...] questions please contact the health career development director that requested your imaging first. ? Electronically signed by: Toby Dave MD, [facility] ([phone]), at 01/09/2024 3:11 PM Narrative 01/09/2024 3:11 [...] have questions please contactthe health career development director that requested your imaging first. Electronically signed by: Toby Dave MD, [facility]([phone]), at 01/09/2024 3:11 PM Zak Farmer MD IMG DX ORDERABLES * Basic Metabolic Panel (non-fasting) (01/09/2024 2:58 PM EDT) Glucose 102 65 - 199 mg/dL [facility] Comment:Diabetes: >=200 mg/d L plus symptoms Blood Urea Nitrogen 15 10 - 20 mg/dL [facility] Creatinine 0.94 0.80 - 1.50 mg/dL [facility] Sodium 137 135 - 145 mmol/L [facility] Potassium 4.5 3.5 - 5.0 mmol/L [facility] Comment: Please note: ??Patients with WBC >100,000 may have falsely elevated Potassium levels. ??For accurate Potassium quantification in these patients send serum separator tube (gold top) for subsequent determinations. ??Contact the Clinical Chemistry Laboratory if there are any questions. Chloride 103 98 - 107 mmol/L [facility] Carbon Dioxide 27 22 - 31 mmol/L [facility] Anion Gap 7 5 - 15 mmol/L [facility] Calcium 9.5 8.5 - 10.5 mg/dL [facility] Est Glomerular Filtration Rate 91 >=60 mL/min/1. 73 m?? [facility] [...] Lab Zak Farmer MD CHEMISTRY ORDERABLE S [facility] [place] [address] * Hepatic Function Panel (01/09/2024 2:58 PM EDT) Pathologist [facility] Protein, Total 6.7 6.1 - 8.0 g/dL [facility] Albumin 4.5 3.2 - 5.2 g/dL [facility] Aspartate Aminotransferase 21 0 - 39 unit/L [facility] Alanine Aminotransferase 21 0 - 55 unit/L [facility] Alkaline Phosphatase 81 40 - 130 unit/L [facility] Bilirubin, Total 0.7 0.2 - 1.3 mg/dL [facility] Bilirubin, Direct 0.2 0.0 - 0.3 mg/dL [facility] Blood 01/09/2024 2:58 PM EDT 01/09/2024 3:03 PM EDT Narrative Resulting Agency Comment Spec In Lab Zak Farmer MD CHEMISTRY ORDERABLE S Performing Organization Address [facility] Co de Phone Number [facility] [place] [address] * Prothrombin Time (01/09/2024 2:58 PM EDT) [facility] Prothrombin Time 10.6 9.4 - 12.5 sec [facility] International Normalization Ratio 0.9 [facility] Comment: An INR <2.0 indicates [...] MD HEMATOLOGY ORDERABL ES Performing Organization Address City/[facility]/ZIP Co de Phone Number [facility] [place] [address] * Type and Screen Future Surgery, [facility] SAME DAY PRO[facility] ONLY) (01/09/2024 2:58 PM EDT) ABORH Type O NEGATIVE [facility] Patient BB History Not Found [facility] Expires at [id number] on: 02-20-2024 [facility] Ab Screen Interp Negative [facility] Blood 01/09/2024 2:58 PM EDT 01/09/2024 2:58 PM EDT Narrative Resulting Agency Comment Spec In Lab Zak Farmer MD BLOOD BANK [facility] Organization Address City/State/ZIP Co de Phone Number [facility] [place] [address] documented in this encounter Visit Diagnoses Diagnosis Nonrheumatic aortic valve stenosis Aortic valve disorders Nonrheumatic aortic valve stenosis Aortic valve disorders documented in this encounter Care Teams Dog Trainer Relationship Specialty Start Date End Date Vanessa Christian APRN PCP - General Family Medicine 10/21/23 documented as of this encounter
--- OUTSIDE RECORDS SUMMARY | 2024-05-25 09:20 | XMS_ITS | Encounter Summary ---
Author Organization [facility] [place] [address] Care Team Providers Care Typesetters Printer Name Role Phone Vanessa Christian MAURI Primary Care Provider [phone] Encounter Details Date Type Department Care Team (Late st Contact Info) Description 01/10/2024 Orders [place] [phone] Lawson Napoles PA [facility] [place] [address] Screening for cardiovascular condition; Aortic valve stenosis, [...] AM EDT Office Visit Cardiology at [address] [place] [phone] Neftali Ernandez MD [facility] CARDIOLOGY [facility] [place] [address] documented as of this encounter Visit Diagnoses Diagnosis Screening for cardiovascular condition Screening for other and unspecified cardiovascular conditions Aortic valve stenosis, etiology of cardiac valve disease unspecified documented in this encounter Care Teams Typesetters Printer Relationship Specialty Start Date End Date Vanessa Christian APRN PCP - General Family Medicine 10/21/23 documented as of this encounter
--- OUTSIDE RECORDS SUMMARY | 2024-05-27 08:18 | XMS_ITS | Encounter Summary ---
Author Organization [facility] Address [facility] [place] [address] Care Team Providers Care Sailor Name Role Phone Vanessa Christian MAURI Primary Care Provider [phone] Encounter Details Date Type Department Care Team (Latest Contact Info) Description 05/20/2024 Travel Social History Tobacco Use Types Packs/Day Years Used Date Smoking Tobacco: Former Cigarettes Smokeless Tobacco: Never Comments:Quit 15 + years ago Alcohol Use Standard Drinks/Week Comments Yes 0 (1 standard drink = 0.6 oz pur e alcohol) rare [facility] Utilities Answer Date Recorded In the past [...] AM EDT Office Visit Cardiology at [address] [place] [phone] Neftali Ernandez MD [facility] [place] [place] [address] documented as of this encounter Visit Diagnoses Not on filedocumented in this encounter Care Teams Sailor Relationship Specialty Start Date End Date Vanessa Christian APRN PCP - General Family Medicine 10/21/23 documented as of this encounter
--- OUTSIDE RECORDS SUMMARY | 2024-05-27 08:18 | XMS_ITS | Encounter Summary ---
Author Organization [facility] Address [facility] [place] [address] Care Team Providers Care Lacquer Mixer Name Role Phone Vanessa Christian MAURI Primary Care Provider [phone] Encounter Details Date Type Department Care Team (Late st Contact Info) Description 03/12/2024 2:40 PM EDT Office Visit [place] [phone] Zak Farmer MD [facility] [place] [address] Coronary artery disease, unspecified vessel or lesion type, unspecified whether angina present, unspecified whether [place] or transplanted heart Social History Tobacco Use Types Packs/Day Years Used Date Smoking Tobacco: Former Cigarettes Smokeless Tobacco: Never Comments:Quit 15 + years ago Alcohol Use Standard Drinks/Week Comments Yes 0 (1 standard drink = 0.6 oz pur e alcohol) rare [facility] Utilities Answer Date Recorded In the past 12 months has e [employer], gas, oil, or water [employer] threatened to shut off services in your [...] place to sleep or slept in a fdc (including now)? No 02/18/2024 DH IPV Inpatient [...] 2:40 PM EDT To: MD Vanessa Coles, RENT CONTROL OFFICE MANAGER Re; Karlos Santa ( 1960) We [...] office. Best personal regards, Zak Farmer MD [phone] documented in this encounter Plan of Treatment Upcoming Encounters Date Type Department Care Team (Late st Contact Info) Description 05/27/2024 11:00 AM EDT Office Visit Cardiology at [address] [place] [address] Neftali Ernandez MD [facility] [place] [address] documented as of this encounter Procedures Procedure Name Priority Date/Time Associated Diagnosis Comments EKG 12-LEAD Routine 03/12/2024 2:35 PM EDT Coronary artery disease, unspecified vessel or lesion type, unspecified whether angina present, unspecified whether [place] or transplanted heart documented in this encounter Results * EKG 12 Lead (03/12/2024 2:35 PM EDT) Ventricular rate 59 BPM MUSE SYSTEM Atrial Rate 59 BPM MUSE SYSTEM P-R Interval 190 ms MUSE SYSTEM QRS Duration 92 ms MUSE SYSTEM Q-T Interval 406 ms MUSE SYSTEM QTC Calculated (Bezet) 401 ms MUSE SYSTEM Calculated P Warren -12 degrees MUSE SYSTEM Calculated R Warren 24 degrees MUSE SYSTEM Calculated T Warren 74 degrees MUSE SYSTEM INTERPRETATION Sinus bradycardia T wave abnormality, consider anterior ischemia Abnormal ECG When compared with ECG of 17-FEB-2024 13:24, AR interval has decreased T wave inversion now evident in Anterior leads Confirmed by Paul Guzman ([id number]) on 03/15/2024 8:36:23 AM MUSE SYSTEM 03/12/2024 2:35 PM EDT 03/15/2024 8:36 AM EDT Zak Farmer MD ECG ORDERABLES MUSE SYSTEM documented in this encounter Visit Diagnoses Diagnosis Coronary artery disease, unspecified vessel or lesion type, unspecified whether angina present, unspecified whether [place] or transplanted heart documented in this encounter Care Teams Lacquer Mixer Relationship Specialty Start Date End Date Vansesa Christian, MAURI PCP - General Family Medicine 10/21/23 documented as of this encounter
--- OUTSIDE RECORDS SUMMARY | 2024-05-27 08:18 | XMS_ITS | Encounter Summary ---
Author Organization [facility] Address [facility] [place] [address] Care Team Providers Care Plate Maker Zinc Name Role Phone Vanessa Christian MAURI Primary Care Provider [phone] Encounter Details Date Type Department Care Team (Latest Contact Info) Description 03/12/2024 1:30 PM EDT - 03/12/2024 11:59 PM EDT Hospital Encounter XRay at [address] [place] [address] Coronary artery disease, unspecified vessel or lesion type, unspecified whether angina present, unspecified whether [place] or transplanted heart Discharge Disposition: Home Social History Tobacco Use Types Packs/Day Years Used Date Smoking Tobacco: Former Cigarettes Smokeless Tobacco: Never Comments:Quit 15 + years ago Alcohol Use Standard Drinks/Week Comments Yes 0 (1 standard drink = 0.6 oz pur e alcohol) rare [facility] Utilities Answer Date Recorded In the past 12 months has e [employer], gas, oil, or water [employer] threatened to shut off services in your [...] Sig Dispensed Refills Start Date End Date aspirin EC 81 mg EC (DR) tablet Take 81 mg by mouth daily. atorvastatin (Lipitor) 10 mg [...] (Trusopt) 2 % Drops 3 times daily. multivitamin (THERAGRAN) Tablet Take 1 tablet by mouth daily. documented as of this encounter Plan of Treatment Upcoming Encounters Date Type Department Care Team (Late st Contact Info) Description 05/27/2024 11:00 AM EDT Office Visit Cardiology at [address] [place] [address] Neftali Ernandez MD [facility] [place] [address] documented as of this encounter Procedures Procedure Name Priority Date/Time Associated Diagnosis Comments XR CHEST PA AND LATERAL Routine 03/12/2024 1:42 PM EDT Coronary artery disease, unspecified vessel or lesion type, unspecified whether angina present, unspecified whether [place] or transplanted heart documented in this encounter Results * XR Chest PA & Lateral (Generic) (03/12/2024 1:42 PM EDT) WORKSTATION ID [id number] RAD Anatomical Region Laterality Modality Chest N/A [...] ? Electronically signed by: Augie Sanchez MD, [facility] ([phone]), at 03/13/2024 8:28 AM Narrative 03/13/2024 8:28 AM EDT EXAMINATION: XR CHEST PA AND LATERAL (GENERIC) CLINICAL HISTORY: s/p cabg eval effusions I25.10, Atherosclerotic heart disease of [place] coronary artery without angina pectoris TECHNIQUE: PA [...] eval effusions I25.10, Atherosclerotic heart disease of [place] coronary artery withoutangina pectoris TECHNIQUE: PA and [...] first. Electronically signed by: Augie Sanchez MD, [facility]([phone]), at 03/13/2024 8:28 AM Zak Farmer MD IMG DX ORDERABLES documented in this encounter Visit Diagnoses Diagnosis Coronary artery disease, unspecified vessel or lesion type, unspecified whether angina present, unspecified whether [place] or transplanted heart documented in this encounter Care Teams Plate Maker Zinc Relationship Specialty Start Date End Date Vanessa Christian APRN PCP - General Family Medicine 10/21/23 documented as of this encounter
--- OUTSIDE RECORDS SUMMARY | 2024-05-27 08:18 | XMS_ITS | Clinical Summary ---
Author Organization [facility] Address [address] [place] [address] Care Team Providers Care Appliance Fixer Name Role Phone Vanessa Christian NP Primary Care Provider [phone] Social History Tobacco Use Types Packs/Day Years [...] COVID-19 Vaccine (2022-24 season) 2023 Care Teams Appliance Fixer Relationship Specialty Start Date End Date Vanessa Christian NP [address] [place] [phone] PCP - General Family Medicine - Primary Care 10/07/23
--- OUTSIDE RECORDS SUMMARY | 2024-05-27 08:18 | XMS_ITS | Encounter Summary ---
Author Organization [facility] Address [facility] [place] [address] Care Team Providers Care Cradle Slide Maker Name Role Phone Vanessa Christian MAURI Primary Care Provider [phone] Encounter Details Date Type Department Care Team (Latest Contact Info) Description 03/12/2024 Travel Social History Tobacco Use Types Packs/Day Years Used Date Smoking Tobacco: Former Cigarettes Smokeless Tobacco: Never Comments:Quit 15 + years ago Alcohol Use Standard Drinks/Week Comments Yes 0 (1 standard drink = 0.6 oz pur e alcohol) rare [facility] Utilities Answer Date Recorded In [...] AM EDT Office Visit Cardiology at [address] [place] [phone] Neftali Ernandez MD [facility] [place] [address] documented as of this encounter Visit Diagnoses Not on filedocumented in this encounter Care Teams Cradle Slide Maker Relationship Specialty Start Date End Date Vanessa Christian APRN PCP - General Family Medicine 10/21/23 documented as of this encounter
--- OUTSIDE RECORDS SUMMARY | 2024-05-27 08:18 | XMS_ITS | Referral Summary ---
Author Organization [facility] Address [address] [place] [address] Care Team Providers Care Electrical Tests Supervisor Name Role Phone Filidayna Vanessa Sherman NP Primary Care Provider [phone] Social History Tobacco Use Types Packs/Day Years Used Date Smoking Tobacco: Never Assessed Sex and Gender Information Value Date Recorded Sex Assigned at Not on file Gender Identity Not on file Sexual Orientation Not on file Plan of Treatment Not on file Care Teams Electrical Tests Supervisor Relationship Specialty Start Date End Date Vanessa Christian NP [address] [place] [address] PCP - General Family Medicine - Primary Care 10/07/23
--- OUTSIDE RECORDS SUMMARY | 2024-05-27 08:18 | XMS_ITS | Clinical Summary ---
Author Organization [facility] Address [facility] [place] [address] Care Team Providers Care Director Of Publications Name Role Phone Gino Vanessa Lane DOTSON Primary Care Provider [phone] Allergies No known active allergies Medications Medication [...] Nevus of face 09/26/2023 Overview (09/26/2023): Right episcopal Aortic stenosis 08/14/2023 Overview (10/21/2023): 12/2022 TTE ([facility]): VITA 0.8-0.9 cm2 (MG 28 [...] the meantime will refer to SHT at [facility] for further evaluation. Logistics and preliminary review of TONY were reviewed with patient. - Refer to SHT Hypertension 08/14/2023 HLD (hyperlipidemia) 08/14/2023 Resolved Problems Problem Noted Date Diagnosed Date Resolved Date Chest pressure 08/14/2023 10/21/2023 SILVA (dyspnea on exertion) 08/14/2023 Encounters Date Type Department Care Team Description 05/20/2024 Travel 03/12/2024 2:40 PM EDT Office [place] [address] Zak Farmer MD Coronary artery disease, unspecified vessel or lesion type, unspecified whether angina present, unspecified whether [place] or transplanted heart 03/12/2024 1:30 PM EDT - 03/12/2024 11:59 PM EDT Hospital Encounter XRay at [address] [place] [address] Coronary artery disease, unspecified vessel or lesion type, unspecified whether angina present, unspecified whether [place] or transplanted heart Discharge Disposition: Home 03/12/2024 Travel from Last 3 Months Social History Tobacco Use Types Packs/Day Years Used Date Smoking Tobacco: Former Cigarettes Smokeless Tobacco: Never Comments:Quit 15 + years ago Alcohol Use Standard Drinks/Week Comments Yes 0 (1 standard drink = 0.6 oz pur e alcohol) rare [facility] Utilities Answer Date Recorded In the [...] a senior living (including now)? No 02/18/2024 IPV Inpatient Questions Answer Date Recorded Does [...] AM EDT Office Visit Cardiology at [address] [place] [address] Neftali Ernandez MD [facility] [place] [address] Health Maintenance Due Date Last Done Comments [...] series) 06/07/2024 Medical Devices Implanted Type Area Cdl Dedicated Truck Driver Device Identifier Shelf Expiration Date Model / Serial / Lot Cable,Cut,Edg ,Blnt,Ss,3tpr ([id number]) - [id number] Implanted:Qty : 1 on 02/17/2024 by Zak Farmer MD at [facility] IMPLANTS Midline: Chest [employer] - [id number] 09/02/2028 [id number] / / [id number] Valve Coronary Aortic 23mm Tissue Trnscath Biopros Inspiris ([id number]) ([employer]ore[employer]) - [id number] Implanted:Qty : 1 on 02/17/2024 by Zak Farmer MD at [facility] IMPLANTS Heart [employer] - TSAI LI 09/15/2027 [id number] / [id number] / Procedures Procedure Name Priority Date/Time Associated Diagnosis Comments EKG 12-LEAD Routine 03/12/2024 2:35 PM EDT Coronary artery disease, unspecified vessel or lesion type, unspecified whether angina present, unspecified whether [place] or transplanted heart XR CHEST PA AND LATERAL Routine 03/12/2024 1:42 PM EDT Coronary artery disease, unspecified vessel or lesion type, unspecified whether angina present, unspecified whether [place] or transplanted heart from Last 3 Months Results * EKG 12 Lead (03/12/2024 2:35 PM EDT) Ventricular rate 59 BPM MUSE SYSTEM Atrial Rate 59 BPM MUSE SYSTEM P-R Interval 190 ms MUSE SYSTEM QRS Duration 92 ms MUSE SYSTEM Q-T Interval 406 ms MUSE SYSTEM QTC Calculated (Bezet) 401 ms MUSE SYSTEM Calculated P [place] -12 degrees MUSE SYSTEM Calculated R [place] 24 degrees MUSE SYSTEM Calculated T [place] 74 degrees MUSE SYSTEM INTERPRETATION Sinus bradycardia T wave abnormality, consider anterior ischemia Abnormal ECG When compared with ECG of 17-FEB-2024 13:24, [place] interval has decreased T wave inversion now evident in Anterior leads Confirmed by Paul Guzman ([id number]) on 03/15/2024 8:36:23 AM MUSE SYSTEM 03/12/2024 2:35 PM EDT 03/15/2024 8:36 AM EDT Zak Farmer MD ECG ORDERABLES MUSE SYSTEM * XR Chest PA & Lateral (Generic) (03/12/2024 1:42 PM EDT) WORKSTATION ID [id number] RAD Anatomical Region Laterality Modality Chest N/A [...] who have questions please contact the health animal care service worker that requested your imaging first. ? 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 Electronically signed by: Augie Sanchez MD, [facility]([phone]), at 03/13/2024 8:28 AM Zak Farmer MD IMG DX ORDERABLES from Last 3 Months Advance Directives * [...] Status decision made by: Patient Care Teams Director Of Publications Relationship Specialty Start Date End Date Vanessa Christian, MAURI PCP - General Family Medicine 10/21/23
--- OUTSIDE RECORDS SUMMARY | 2024-05-27 08:18 | XMS_ITS | Encounter Summary ---
Author Organization [facility] Address [facility] [place] [address] Care Team Providers Care Functional Support Analyst Name Role Phone Gino Vanessa Lane DOTSON Primary Care Provider [phone] Encounter Details Date Type Department Care Team (Late st Contact Info) Description 02/24/2024 Orders Only Cardiac Surgery [facility] [place] [id number] Trudi Lester APRN [facility] [place] [address] Social History Tobacco Use Types Packs/Day Years Used Date Smoking Tobacco: Former Cigarettes Smokeless Tobacco: Never Comments:Quit 15 + years ago Alcohol Use Standard Drinks/Week Comments Yes 0 (1 standard drink = 0.6 oz pur e alcohol) rare [facility] Utilities Answer Date Recorded In the past 12 months has e [employer], gas, oil, or water [employer] threatened to shut off services in your [...] AM EDT Office Visit Cardiology at [address] [place] [address] Neftali Ernandez MD [facility] [place] [address] documented as of this encounter Visit Diagnoses Not on filedocumented in this encounter Care Teams Functional Support Analyst Relationship Specialty Start Date End Date Vanessa Christian APRN PCP - General Family Medicine 10/21/23 documented as of this encounter
--- OUTSIDE RECORDS SUMMARY | 2024-05-27 08:18 | XMS_ITS | Encounter Summary ---
Author Organization [facility] Address [address] [place] [address] Care Team Providers Care Entrepreneur Name Role Phone Vanessa Christian Lane MONCADA Primary Care Provider [phone] Encounter Details Date Type Department Care Team (Late st Contact Info) Description 10/24/2023 Lab Requisition [facility] Pathology & Laboratory Medicine - [address] [address] Oscar Nichole MD [address] [place] [address] [phone] Factitial dermatitis Social History Tobacco Use Types [...] management options, if applicable. 10/28/2023 11:24 EST [facility] Final Diagnosis A. SKIN OF YAZIDI, LEFT, SHAVE BIOPSY: - Seborrheic keratosis, pigmented. 10/28/2023 11:24 EST [facility] Attestation By the signature below, the attending physician certifies that they have 1) personally conducted a gross and/or microscopic examination of the described specimen(s), and/or personally interpreted the results of laboratory testing of the described specimen(s), and 2) personally rendered or confirmed the above diagnosis. 10/28/2023 11:24 [facility] at 1124 Microscopic Description The stratum corneum is thickened by compact and basketweave orthokeratosis with formation of horn pseudocysts. The epidermis is acanthotic with formation of broad and anastomosing trabeculae. The trabeculae are composed of basaloid keratinocytes with round uniform nuclei. The keratinocytes have a variable amount of melanin pigment. 10/28/2023 11:24 [facility] Clinical History Pigmented 2 cm patch; clinical diagnosis code: L98.1 10/28/2023 11:24 [facility] Gross Description A. Received in formalin labelled with proper patient identification (initials P, A) and left zoroastrian is a shave biopsy of an irregular [...] A3. Nora Anderson 10/25/2023 8:47 10/28/2023 11:24 [facility] Performing Lab [facility] 10/28/2023 11:24 [facility] Scanned Images 10/28/2023 11:24 [facility] Tissue SPECIMEN FROM SKIN / Unknown 10/24/2023 14:30 EST 10/24/2023 22:04 EST Oscar Nichole MD PATHOLOGY ORDERABLES [facility] [address] [place] [address] documented in this encounter Visit Diagnoses Diagnosis Factitial dermatitis Dermatitis factitia (artefacta) documented in this encounter Care Teams Entrepreneur Relationship Specialty Start Date End Date Vanessa Christian NP [address] [place] [address] PCP - General Family Medicine - Primary Care 10/07/23 documented as of this encounter
--- OUTSIDE RECORDS SUMMARY | 2024-05-27 08:18 | XMS_ITS | Encounter Summary ---
[place] [address] Care Team Providers Care Crusher Loader Operator Name Role Phone Aparna Jordan MAURI Primary Care Provider [phone] Reason for Referral * Diagnostic Test (Routine) - New Request Specialty Diagnoses / Procedures Referred By Contac t Referred To Contact Cardiology Diagnoses S/P AVR Procedures Echocardiogram Transthoracic Neftali Menon PA [facility] [place] [address] [facility] [place] [address] Referral ID Status Reason Start Date Expiration Date Visits Requested Visits Authorized [id number] New Request Specialty Service Requested 02/24/2024 02/23/2025 1 1 * Consultation (Routine) - Authorized Specialty Diagnoses / Procedures Referred By Contac t Referred To Contact Cardiology Diagnoses S/P AVR Zak Graham MD [facility] [place] [address] Cardiac Rehab, [facility] [address] [place] [address] [place] [address] Referral ID Status Reason Start Date Expiration Date Visits Requested Visits Authorized [id number] Authorized Consult, Test & Treat 02/24/2024 08/22/2024 36 36 * Home Health Care (Routine) - Authorized Specialty Diagnoses / Procedures Referred By Sixto mendoza Referred To Contact Diagnoses S/P AVR Zak Graham MD [facility] [place] [address] Referral ID Status Reason Start Date Expiration Date Visits Requested Visits Authorized [id number] Authorized Consult, Test & Treat 02/24/2024 08/22/2024 [...] ARTERIAL GRAFT (WRVU 7.93) Zak Graham MD [facility] [place] [address] [facility] Referral ID Status Reason Start Date Expiration Date Visits Re quested Visits Authorized [id number] 1 1 Encounter Details Date Type Department Care Team (Latest Contact Info) Description 02/17/2024 5:43 AM EDT - 02/24/2024 11:23 AM EDT Hospital Encounter Heart and Vascular Unit Level 4 [place] [address] Zak Graham MD [facility] [place] [address] S/P AVR (Primary Dx); Aortic valve stenosis, etiology of cardiac valve disease unspecified Discharge Disposition: Home with VNA Social History Tobacco Use Types Packs/Day Years Used Date Smoking Tobacco: Former Cigarettes Smokeless Tobacco: Never Comments:Quit 15 + years ago Alcohol Use Standard Drinks/Week Comments Yes 0 (1 standard drink = 0.6 oz pur e alcohol) rare [facility] Utilities Answer Date Recorded In the [...] place to sleep or slept in a assisted (including now)? No 02/18/2024 DH IPV Inpatient [...] Patient Age: 63 y.o. Birthdate: 1960 Language: Azerbaijani Race: White Ethnicity: Not nor Admit Date: 02/17/2024 Discharge Date: 02/24/24 Attending Physician: Zak Graham MD Follow-up Recommendations for Providers: Please continue routine management of cardiovascular risk factors including blood pressure, lipids,glucose, etc. Please note any changes to medications. Patient to follow up with PCP, Aparna Jordan APRN, in 1-2 weeks. Patient to follow up with Qa Automation Developer, Neftali Ernandez MD , in 2 weeks. Patient to follow up with Cardiac Surgeon, Dr. Zak Graham, with a chest x-ray, EKG, and Echo. 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 Past Surgical History: Procedure Laterality Date PRO CABG, ARTERIAL, SINGLE N/A 02/17/2024 @CABG, USING ARTERIAL GRAFT;SINGLE ARTERIAL GRAFT (WRVU 33.75) performed by Zak Graham MD at [facility] MAIN OR PRO CABG, ARTERY-VEIN, TWO N/A 02/17/2024 @CABG, TWO VENOUS GRAFTS & ARTERIAL GRAFT (WRVU 7.93) performed by Zak Graham MD at [facility] MAIN OR PRO ENDOSCOPY W/VIDEO-ASST VEIN HARVEST, CABG Left 02/17/2024 ENDOSCOPIC HARVEST VEIN(S) FOR CABG (WRVU 0.31) performed by Zak Graham MD at [facility] MAIN OR PRO REPLACEMENT PROSTHETIC AORTIC VALVE OPEN W CARDIOPULMONARY BYPASS HOMOGRF/STENT N/A 02/17/2024 @REPLACE AORTIC VALVE, OPEN, W\CPB, W\PROSTHETIC VALVE (WRVU 41.32) performed by Zak Graham MD at [facility] MAIN OR Prior To Admission [...] insufficiency. He has glaucoma. He used to [employer] until about 15 years ago. He has undergone prior herniorrhaphy. 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 Major Procedures/Operations: 02/17/24 s/p avr/cabgx3 CABG x 3 JOSE->LAD SVG->dRCA SVG->OM1 EVH from LLE AVR with a 23 mm Inspiris Bioprosthesis Hospital Course: Viraj Garcia was admitted to [facility] on 02/17/2024 via the Same Day Program. [...] Zak Graham and/or the Cardiac Surgery Physician Fish Inspector Team may be reached at . Antibiotic [...] Dr. Zak Graham. You may use a Alexander Track or treadmill but avoid any pulling [...] while being managed by your PCP and/or Qa Automation Developer. For future medication refills, please refer to your PCP and/or Qa Automation Developer after your discharge from our service. Thank you REMOVE CHEST TUBE SUTURES ON OR AFTER 03/02/24 Home oxygen therapy: N/A Follow up appointments: You should follow up with your PCP, Aparna Jordan APRN, in 1-2 weeks. Our office will schedule an appointment with your Qa Automation Developer, Neftali Ernandez MD , in 2 weeks. You have an appointment with your Cardiac Surgeon, Dr. Zak Graham, 4 weeks with a chest x-ray, EKG, and Echo before your appointment. Cardiac Rehabilitation: Viraj Garcia was seen regarding participation in the outpatient Phase 2Cardiac Rehabilitation at [facility]. The patient agrees to a referral to this program. The referral will be sent at discharge and the patient should be contacted by the Program within 1- 2 weeks from discharge. Future Appointments and Orders Future Orders Complete By Expires Echocardiogram Transthoracic [20525 CPT(R)] 03/26/2024 09/25/2024 Process Instructions: Scheduling Instructions: Questions: Where will study be performed?: [facility] Does the patient have Congenital Heart Disease?: Does patient require sedation?: Sedation rationale: XR Chest PA & Lateral (Generic) [72343 47725 Custom] 03/26/2024 09/25/2024 Process Instructions: Scheduling Instructions: Questions: Portable exam?: Reason for exam and clinical history: s/p avr/cabg Clinical information / jerome questions for radiologist: Stat read required?: Date of injury if applicable: Requested Time: Where will study be performed?: [facility] Radiology Referral to Cardiac Rehab [PKQ252 Custom] As directed Process Instructions: If no progress note charted, please enter Clinical details in comments. Scheduling Instructions: Questions: My question or request is: s/p AVR/CABG. Cardiac rehab at [facility]. Referral to Home Health [REF34 Custom] As directed Process Instructions: If no progress note charted, please enter Clinical details in comments. Scheduling Instructions: Comments: Please evaluate Viraj Garcia for admission to Home Health. [address] Phone Number: Date of : 1960 Inpatient DOCUMENTATION FOR VNA SERVICES (INCLUDING THOSE PATIENTS WITH MEDICARE COVERAGE REQUIRING HOME VNA SERVICES AND/OR HOSPICE SERVICES) PATIENT'S LOCATION: Viraj Garcia [address] Passenger Baggage Xpress [phone] Horse Wrangler's Name: self/family In discussion with the attending physician, it is certified that this patient is under their care and that they, or a Nurse Practitioner, or Physician Fish Inspector who is working directly with them, hada [...] for services as follows: HOME HEALTH AGENCY: [facility] [address] [place] [address] RN orders: Cardiopulmonary assessment, incisional assessment, assess [...] issues please call the Cardiology Office at [phone] FOR MEDICARE ONLY: (please delete this section [...] APRN [address] / [place] [address] . All VNA agencies which cover the area of patient's residence have been reviewed, either verbally or in writing, and patient/family have chosen the home health care agency noted. Questions: Disciplines Requested: Nursing Physical Therapy Arrangements for VNA/home care: As above. Signed: NEFTALI MENON PA-C [facility] [place] of Cardiac Surgery [facility] [address] FAX [phone] Date: 02/24/2024 CC: Aparna Jordan, MAURI Jordan, Aparna Sherman APRN [address] [place] [address] documented in this encounter Discharge Instructions * [...] Zak Graham and/or the Cardiac Surgery Physician Fish Inspector Team may be reached at . Antibiotic [...] Dr. Zak Graham. You may use a Alexander Track or treadmill but avoid any pulling [...] while being managed by your PCP and/or Qa Automation Developer. For future medication refills, please refer to your PCP and/or Qa Automation Developer after your discharge from our service. Thank you REMOVE CHEST TUBE SUTURES ON OR AFTER 03/02/24 Home oxygen therapy: N/A Follow up appointments: You should follow up with your PCP, Aparna Jordan APRN, in 1-2 weeks. Our office will schedule an appointment with your Qa Automation Developer, Neftali Ernandez MD , in 2 weeks. You have an appointment with your Cardiac Surgeon, Dr. Zak Graham, 4 weeks with a chest x-ray, EKG, and Echo before your appointment. Cardiac Rehabilitation: Viraj Garcia was seen regarding participation in the outpatient Phase 2Cardiac Rehabilitation at [facility]. The patient agrees to a referral [...] mouth daily. documented as of this encounter Progress [...] 0600 and on the weekends please page [phone]. * Eric Barahona PA - 02/23/2024 9:27 [...] 0600 and on the weekends please page [phone]. * Tiffanie Owens - 02/22/2024 2:48 PM [...] d/c for 10 days. 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 * Kelley Hinson PTA - 02/21/2024 10:15 [...] d/c for 10 days. 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 * Kelley Hinson PTA - 02/20/2024 3:32 [...] at that time Kelley Hinson PTA Pager: [phone] Physical Therapy Inpatient Rehab Department * Louisa [...] 0600 and on the weekends please page [phone]. * Chrystal Benavides, PT - 02/19/2024 11:22 [...] d/c for 10 days. 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 Precautions/Special Considerations: STERNAL [...] outlined inthis evaluation. CHRYSTAL BENAVIDES, PT Pager: [phone] Physical Therapy Inpatient Rehabilitation Department Time IN / OUT: 8800-9444 Total Time: 38 (eval) minutes; * Antonio [...] 0600 and on the weekends please page [phone]. * Minnie Begum PA - 02/18/2024 8:25 [...] site CDI with KEVYN wrap Tubes/Lines/Drains: RIJ/PAC, [place], Med Ctx, L pleural CT, TPW, Naqvi [...] 0600 and on the weekends please page [phone]. * Kim Ha MEAT GRADING MACHINE OPERATOR - 02/17/2024 2:25 PM EDT Respiratory Care [...] plan since last visit. Zak Graham MD [phone] Source Note - Zak Graham MD - [...] given written informed consent. Zak Graham MD [phone] * Zak Graham MD - 02/17/2024 7:00 [...] given written informed consent. Zak Graham MD [phone] documented in this encounter Miscellaneous Notes * [...] information for follow-up Home Health & Hospice, [address] [place] [address] Cardiac Rehab, [address] [place] [address] Transportation: family or friend will provide Functional status prior to admission: Independent Home Environment: Others in the home: alone. Current Living Arrangements: home/apartment/condo. Accessibility Concerns:a few steps to enter 1 floor home. Current Functional Ability: Assistive Person and Equipment DME used at home: none DME Needed at Discharge: N/A Patient is insured through: Primary Insurance: [facility] Payor: [facility] / Plan: [facility] PPO / Product Type: *No Product [...] managed with scheduled Tylenol. Worked with mobility appening. Ambulated in the roque multiple times during [...] anticipated Patient is insured through: Primary Insurance: [facility] Payor: [facility] / Plan: [facility] PPO / Product Type: *No Product type* / Secondary Insurance: N/A Last Physical Therapy Recommendation: home with home health (Str coming to stay for a week or two upon d/c) with to be determined (owns rolling walker, shower seat) Plan for discharge is: Home w/ Services Outpatient Agency/Support Group Needs: Homecare agency Home Health Services: Physical Therapy, Registered Nurse Agency Referrals: [facility] [address] [place] [id number] Transportation: family or friend will provide Barriers to discharge: Discharge planning Plan going forward: Service Care Management will continue to follow and assist with discharge planning and coordination of care as indicated. Anticipated Date of Discharge: 02/22/2024 Rhett Bell RN RN/CM - Cellphone: [phone] Pager: [phone] Covering Service RN/CM * Plan of Care [...] Yang RN - 02/19/2024 10:44 AM EDT [facility] Viraj Garcia was seen today regarding participation in the outpatient Phase 2 Cardiac Rehabilitation at [facility]. 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 (Only good for 180 days) Any patient receiving care in [place] must abide by [place] law. The hierarchy [...] (i) The agent with financial power of family law attorney or a conservator appointed in accordance [...] steady place to sleep or slept in [facility] (including now)?: No In the past 12 months has the electric, gas, oil, or water [employer] threatened to shut off services in your [...] Home Address confirmed as: [address] [facility] [address] Physical address: [address] [facility], [address] Social & Family Supports: All names listed [...] Information: none noted Health/Prescription Coverage: Primary Insurance: [facility] Payor: [facility] / Plan: [facility] PPO / Product Type: *No Product type* / Secondary Insurance: N/A ; Prescription Coverage: Yes Preferred Pharmacy: [id number] [address] [place] Status: Patient is a : No Primary Care Provider confirmed: Aparna Jordan, MAURI [phone] Patient/Caregiver Goals of Treatment: dc to home Potential Needs for Transition of Care: home health care Agency Referrals: I have met with the patient to: discuss discharge planning needs. provide the [facility], Office of Care Management letter from the [employer] pertaining to rehab referrals. provide a letter describing our affiliations within the [facility] and educate about their right to choose where referrals are sent. provide a list of Home Health Agencies / Durable Medical Equipment vendors which serve their preferred geographic area. provided patient with [facility] Star Quality Rating handout. They have requested referrals to: [facility] [address] [place] [address] Note routed to a Paperhanger who will communicate referrals to facilities and [...] Reina Greene RN CM, BSN, CMGT-BC Ext [phone] * Plan of Care - Binta Trinidad [...] Operative Note Patient Name: Viraj Garcia : [id number] MR#: [id number] Case Date: 02/17/2024 Surgeon: Surgeon(s) and Role: * Zak Graham MD - Primary * Neftali Menon PA - Physician Fish Inspector Preoperative diagnosis: CAD Postoperative diagnosis: CAD, intraoperative [...] Mediastinal and Left pleural Disposition: [facility] Condition: doing well without problems Attestation: Case Date: 02/17/2024 I performed this procedure without the involvement of a resident. ZAK GRAHAM MD 02/17/2024 * Op Note - Zak Graham MD - 02/17/2024 8:20 AM EDT [facility] Operative Note Patient Name: Viraj Garcia : [id number] MR#: [id number] Case Date: 02/17/2024 Surgeon: Surgeons and Role: * Zak Graham MD - Primary * Neftali Menon PA - Physician Fish Inspector Preoperative diagnosis: CAD Postoperative diagnosis: CAD, intraoperative [...] Mediastinal and Left pleural Disposition: [facility] Procedure Description: The patient was brought to [...] AM EDT Office Visit Cardiology at [address] [id number] Neftali Ernandez MD [facility] [place] [address] Scheduled Orders Name Type Priority Associated Diagnoses [...] Aortic Valve Open W Cardiopulmonary Bypass Homogrf/Stent (31846) Yes 02/17/2024 7:28 AM EDT CAD Cabg, Artery-Vein, Two (05385) Yes 02/17/2024 7:28 AM EDT CAD Cabg, Arterial, Single (92601) Yes 02/17/2024 7:28 AM EDT CAD Endoscopy W/Video-Asst Vein Rembert, Cabg (15762) Yes 02/17/2024 7:28 AM EDT CAD POCT GLUCOSE Routine 02/17/2024 6:38 AM EDT TRANSESOPHAGEAL ECHOCARDIOGRAM IN THE OR Routine 02/17/2024 6:33 AM EDT Aortic valve stenosis, etiology of cardiac valve disease unspecified LAB SCAN 02/17/2024 12:00 AM EDT IMPLANTABLE DEVICES SCAN 02/17/2024 12:00 AM EDT documented in this encounter Results * Potassium (02/24/2024 4:42 AM EDT) Potassium 4.0 3.5 - 5.0 mmol/L [facility] Comment: Please note: ??Patients with WBC >100,000 may have falsely elevated Potassium levels. ??For accurate Potassium quantification in these patients send serum separator tube (gold top) for subsequent determinations. ??Contact the Clinical Chemistry Laboratory if there are any questions. Blood 02/24/2024 4:42 AM EDT 02/24/2024 4:59 AM EDT Narrative Resulting Agency Comment Spec In Lab Zak Graham MD CHEMISTRY ORDERABLE S [facility] [place] [address] * (ABNORMAL) Basic Metabolic Panel (non-fasting) (02/23/2024 4:24 AM EDT) Glucose 117 65 - 199 mg/dL [facility] Comment:Diabetes: >=200 mg/d L plus symptoms Blood Urea Nitrogen 18 10 - 20 mg/dL [facility] Creatinine 0.71(L) 0.80 - 1.50 mg/dL [facility] Sodium 138 135 - 145 mmol/L [facility] Potassium 4.4 3.5 - 5.0 mmol/L [facility] Comment: Please note: ??Patients with WBC >100,000 may have falsely elevated Potassium levels. ??For accurate Potassium quantification in these patients send serum separator tube (gold top) for subsequent determinations. ??Contact the Clinical Chemistry Laboratory if there are any questions. Chloride 101 98 - 107 mmol/L [facility] Carbon Dioxide 26 22 - 31 mmol/L [facility] Anion Gap 11 5 - 15 mmol/L [facility] Calcium 8.8 8.5 - 10.5 mg/dL [facility] Est Glomerular Filtration Rate 102 >=60 mL/min/1. 73 m?? [facility] Comment: This patient's estimated GFR [...] In Lab Romeo Carpio MD CHEMISTRY ORDERABLES [facility] [place] [address] * Potassium (02/22/2024 4:30 AM EDT) Potassium 3.5 3.5 - 5.0 mmol/L [facility] Comment: Please note: ??Patients with WBC >100,000 may have falsely elevated Potassium levels. ??For accurate Potassium quantification in these patients send serum separator tube (gold top) for subsequent determinations. ??Contact the Clinical Chemistry Laboratory if there are any questions. Blood 02/22/2024 4:30 AM EDT 02/22/2024 5:12 AM EDT Narrative Resulting Agency Comment Spec In Lab Zak Graham MD CHEMISTRY ORDERABLE S [facility] [place] [address] * (ABNORMAL) Basic Metabolic Panel (non-fasting) (02/21/2024 9:45 AM EDT) Glucose 123 65 - 199 mg/dL [facility] Comment:Diabetes: >=200 mg/d L plus symptoms Blood Urea Nitrogen 22(H) 10 - 20 mg/dL [facility] Creatinine 0.78(L) 0.80 - 1.50 mg/dL [facility] Sodium 140 135 - 145 mmol/L [facility] Potassium 3.9 3.5 - 5.0 mmol/L [facility] Comment: Please note: ??Patients with WBC >100,000 may have falsely elevated Potassium levels. ??For accurate Potassium quantification in these patients send serum separator tube (gold top) for subsequent determinations. ??Contact the Clinical Chemistry Laboratory if there are any questions. Chloride 100 98 - 107 mmol/L [facility] Carbon Dioxide Not Perf 22 - 31 [facility] Comment:Add-on request. Yolanda le too old to perform test. Anion Gap Unable to Calculate 5 - 15 mmol/L [facility] Calcium 8.6 8.5 - 10.5 mg/dL [facility] Est Glomerular Filtration Rate 100 >=60 mL/min/1 .73 m?? [facility] Comment: This patient's estimated GFR [...] Carpio MD CHEMISTRY ORDERABLES Performing Organization Address City/[facility]/ZIP Co de Phone Number [facility] [place] [address] * Lactate, whole blood, send to lab ([facility]) (02/21/2024 9:45 AM EDT) [facility] Lactate WB 2.0 0.5 - 2.2 mmol/L [facility] Blood 02/21/2024 9:45 AM EDT 02/21/2024 9:52 AM EDT Narrative Resulting Agency Comment Spec In Lab Zak Graham MD CHEMISTRY ORDERABLE S Performing Organization Address [facility] Co de Phone Number [facility] [place] [address] * (ABNORMAL) Hepatic Function Panel (02/21/2024 9:45 AM EDT) [facility] Protein, Total 5.7(L) 6.1 - 8.0 g/dL [facility] Albumin 3.3 3.2 - 5.2 g/dL [facility] Aspartate Aminotransferase 13 0 - 39 unit/L [facility] Alanine Aminotransferase 16 0 - 55 unit/L [facility] Alkaline Phosphatase 63 40 - 130 unit/L [facility] Bilirubin, Total 0.6 0.2 - 1.3 mg/dL [facility] Bilirubin, Direct 0.2 0.0 - 0.3 mg/dL [facility] Blood 02/21/2024 9:45 AM EDT 02/21/2024 9:52 AM EDT Narrative Resulting Agency Comment Spec In Lab Zak Graham MD CHEMISTRY ORDERABLE S [facility] [place] [address] * Lipase (02/21/2024 9:45 AM EDT) Lipase 56 0 - 60 unit/L [facility] Blood 02/21/2024 9:45 AM EDT 02/21/2024 9:52 AM EDT Narrative Resulting Agency Comment Spec In Lab Zak Graham MD CHEMISTRY ORDERABLE S [facility] [place] [address] * Amylase (02/21/2024 9:45 AM EDT) Amylase 69 28 - 100 unit/L [facility] Blood 02/21/2024 9:45 AM EDT 02/21/2024 9:52 AM EDT Narrative Resulting Agency Comment Spec In Lab Zak Graham MD CHEMISTRY ORDERABLE S Performing Organization Address [facility]/ZIP Co de Phone Number [facility] [place] [address] * Potassium (02/21/2024 3:08 AM EDT) Potassium 3.8 3.5 - 5.0 mmol/L [facility] Comment: Please note: ??Patients with WBC >100,000 may have falsely elevated Potassium levels. ??For accurate Potassium quantification in these patients send serum separator tube (gold top) for subsequent determinations. ??Contact the Clinical Chemistry Laboratory if there are any questions. Blood 02/21/2024 3:08 AM EDT 02/21/2024 3:28 AM EDT Narrative Resulting Agency Comment Spec In Lab Zak Graham MD CHEMISTRY ORDERABLE S [facility] [place] [address] * XR Chest PA & Lateral (Generic) (02/20/2024 10:19 AM EDT) WORKSTATION ID [id number] RAD Anatomical Region Laterality Modality Chest N/A Digital Radiogra phy Impressions 02/20/2024 1:11 PM EDT Small pleural effusions. No pneumothorax Thank you for letting us participate in the care of this patient. ??If you are a health care provider and have any questions regarding this report, please contact the number below. ??For patients who have questions please contact the health care management coordinator that requested your imaging first. ? Electronically signed by: Rogerio Cruz MD, [facility] ??([phone]), at 02/20/2024 1:11 PM Narrative 02/20/2024 1:11 PM EDT EXAMINATION: XR CHEST PA AND LATERAL (GENERIC) CLINICAL HISTORY: s/p AVR/CABGx3 TECHNIQUE: PA and lateral views of the chest COMPARISON: 02/17/2024 FINDINGS: Support devices: Interval removal of [place]-Kaila catheter, endotracheal tube and mediastinal chest tubes The cardiac silhouette is stable status post median sternotomy, CABG and aortic valve replacement. There are small pleural effusions. No pneumothorax. Procedure Note Rogerio Cruz MD - 02/20/2024 EXAMINATION: XR CHEST PA AND LATERAL (GENERIC) CLINICAL HISTORY: s/p AVR/CABGx3 TECHNIQUE: PA and lateral views of the chest COMPARISON: 02/17/2024 FINDINGS: Support devices: Interval removal of [place]aila catheter, endotracheal tubeand mediastinal chest tubes The [...] who have questions please contactthe health care management coordinator that requested your imaging first. Electronically signed by: Rogerio Cruz MD, [facility]([phone]), at 02/20/2024 1:11 PM Zak Graham MD IMG DX ORDERABLES * Scan, Peripheral Blood (02/20/2024 4:23 AM EDT) Pathologist [facility] [place] Plat estimate Decreased [facility] RBC Morphology Normal [facility] Blood 02/20/2024 4:23 AM EDT 02/20/2024 4:42 AM EDT Narrative Resulting Agency Comment Spec In Lab Minnie FRENCH HEMATOLOGY CECILIO ALEMAN [facility] [place] [address] * (ABNORMAL) Differential, Automated (02/20/2024 4:23 AM EDT) [facility] Neutrophil % 81.7 % [facility] Neutrophil Absolute 10.37(H) 1.70 - 6.10 x10(3)/mc L [facility] Lymph % 7.4 % [facility] Lymphocytes Abs 0.9 0.9 - 3.2 x10(3)/mc L [facility] Monocyte % 9.7 % [facility] Monocyte Abs 1.2(H) 0.3 - 0.9 x10(3)/mc L [facility] Eos % 0.1 % [facility] Eosinophils Abs 0.0 0.0 - 0.4 x10(3)/mc L [facility] Basophil % 0.2 % [facility] Baso Absolute 0.0 0.0 - 0.1 x10(3)/mc L [facility] Immature Gran % 0.90 % [facility] Comment: Immature granulocytes(IG's)percentage and absolute count will include metamyelocytes, myelocytes, and promyelocytes. Blood smears from CBCs yielding IG's will be scanned manually for concordance. If this scan disagrees with the automated IG or if promyelocytes are noted, a manual differential will be performed. Immature Gran Absolute 0.12(H) 0.00 - 0.04 x10(3)/ L [facility] Blood 02/20/2024 4:23 AM EDT 02/20/2024 4:42 AM EDT Narrative Resulting Agency Comment Spec In Lab Minnie FRENCH HEMATOLOGY CECILIO ALEMAN [facility] [place] [address] * (ABNORMAL) Hemogram (02/20/2024 4:23 AM EDT) White Blood Cell 12.7(H) 4.0 - 9.5 x10(3)/ L [facility] Red Blood Cell 4.26(L) 4.58 - 5.54 x10(6)/mc L [facility] Hemoglobin 12.3(L) 13.7 - 16.5 g/dL [facility] Hematocrit 37.1(L) 40.5 - 48.5 % [facility] Mean Cell Volume 87.1 82.9 - 93.1 fL [facility] Mean Cell Hemoglobin 28.9 27.5 - 32.1 pg [facility] Mean Cell Hemoglobin Concentration 33.2 32.0 - 35.7 g/dL [facility] Platelet 88(L) 145 - 357 x10(3)/ L [facility] RDW Standard Deviation 43.5 36.0 - 45.0 fL [facility] RDW coefficient of variation 13.7 11.4 - 13.8 % [facility] Mean Platelet Volume 10.2 7.6 - 12.9 fL [facility] NRBC% auto 0.0 % [facility] NRBC Absolute 0.000 0.000 - 0.000 x10(3)/mc L [facility] Blood 02/20/2024 4:23 AM EDT 02/20/2024 4:42 AM EDT Narrative Resulting Agency Comment Spec In Lab Minnie FRENCH HEMATOLOGY ORDE ASH [facility] [place] [address] * (ABNORMAL) Basic Metabolic Panel (non-fasting) (02/20/2024 4:23 AM EDT) Glucose 113 65 - 199 mg/dL [facility] Comment:Diabetes: >=200 mg/d L plus symptoms Blood Urea Nitrogen 20 10 - 20 mg/dL [facility] Comment:result rechecked-KS Creatinine 0.71(L) 0.80 - 1.50 mg/dL [facility] Sodium 135 135 - 145 mmol/L [facility] Potassium 3.9 3.5 - 5.0 mmol/L [facility] Comment: Please note: ??Patients with WBC >100,000 may have falsely elevated Potassium levels. ??For accurate Potassium quantification in these patients send serum separator tube (gold top) for subsequent determinations. ??Contact the Clinical Chemistry Laboratory if there are any questions. Chloride 102 98 - 107 mmol/L [facility] Carbon Dioxide 25 22 - 31 mmol/L [facility] Anion Gap 8 5 - 15 mmol/L [facility] Calcium 8.7 8.5 - 10.5 mg/dL [facility] Comment:result rechecked-KS Est Glomerular Filtration Rate 102 >=60 mL/min/1. 73 m?? [facility] Comment: This patient's estimated GFR [...] CHEMISTRY ORDERABLE S Performing Organization Address [facility] Co de Phone Number [facility] [place] [address] * Potassium (02/19/2024 3:57 AM EDT) Potassium 4.3 3.5 - 5.0 mmol/L [facility] Comment: Please note: ??Patients with [...] CHEMISTRY ORDERABLE S Performing Organization Address [facility] Co de Phone Number [facility] [place] [address] * POCT Glucose (02/18/2024 8:24 AM EDT) Glucose, POC 157 65 - 199 mg/dL [facility] Comment: Supplemental ranges: <140 mg/dL before meals <180 mg/dL all other times of the day Blood 02/18/2024 8:24 AM EDT 02/18/2024 8:24 AM EDT Zak Graham MD POINT OF CARE TEST ORDERABLES [facility] [place] [address] * Scan, Peripheral Blood (02/18/2024 1:40 AM EDT) Plat estimate Decreased [facility] RBC Morphology Normal [facility] Blood 02/18/2024 1:40 AM EDT 02/18/2024 1:56 AM EDT Narrative Resulting Agency Comment Spec In Lab Neftali FRENCH HEMATOLOGY ORDER OLE Performing Organization Address City/[facility]/ZIP Co de Phone Number [facility] [place] [address] * (ABNORMAL) Differential, Automated (02/18/2024 1:40 AM EDT) [facility] Neutrophil % 87.1 % [facility] Neutrophil Absolute 15.03(H) 1.70 - 6.10 x10(3)/mc L [facility] Lymph % 3.0 % [facility] Lymphocytes Abs 0.5(L) 0.9 - 3.2 x10(3)/mc L [facility] Monocyte % 9.1 % [facility] Monocyte Abs 1.6(H) 0.3 - 0.9 x10(3)/mc L [facility] Eos % 0.0 % [facility] Eosinophils Abs 0.0 0.0 - 0.4 x10(3)/mc L [facility] Basophil % 0.2 % [facility] Baso Absolute 0.0 0.0 - 0.1 x10(3)/mc L [facility] Immature Gran % 0.60 % [facility] Comment: Immature granulocytes(IG's)percentage and absolute count will include metamyelocytes, myelocytes, and promyelocytes. Blood smears from CBCs yielding IG's will be scanned manually for concordance. If this scan disagrees with the automated IG or if promyelocytes are noted, a manual differential will be performed. Immature Gran Absolute 0.10(H) 0.00 - 0.04 x10(3)/mc L [facility] Blood 02/18/2024 1:40 AM EDT 02/18/2024 1:56 AM EDT Narrative Resulting Agency Comment Spec In Lab Neftali FRENCH HEMATOLOGY ORDER OLE [facility] [place] [address] * (ABNORMAL) Hemogram (02/18/2024 1:40 AM EDT) White Blood Cell 17.2(H) 4.0 - 9.5 x10(3)/mc L [facility] Red Blood Cell 4.71 4.58 - 5.54 x10(6)/mc L [facility] Hemoglobin 13.7 13.7 - 16.5 g/dL [facility] Hematocrit 39.2(L) 40.5 - 48.5 % [facility] Mean Cell Volume 83.2 82.9 - 93.1 fL [facility] Mean Cell Hemoglobin 29.1 27.5 - 32.1 pg [facility] Mean Cell Hemoglobin Concentration 34.9 32.0 - 35.7 g/dL [facility] Platelet 147 145 - 357 x10(3)/mc L [facility] RDW Standard Deviation 39.9 36.0 - 45.0 [facility] RDW coefficient of variation 13.2 11.4 - 13.8 % [facility] Mean Platelet Volume 9.9 7.6 - 12.9 [facility] NRBC% auto 0.0 % [facility] NRBC Absolute 0.000 0.000 - 0.000 x10(3)/mc L [facility] Blood 02/18/2024 1:40 AM EDT 02/18/2024 1:56 AM EDT Narrative Resulting Agency Comment Spec In Lab Neftali FRENCH HEMATOLOGY ORDER OLE [facility] [place] [address] * (ABNORMAL) Basic Metabolic Panel (non-fasting) (02/18/2024 1:40 AM EDT) Glucose 176 65 - 199 mg/dL [facility] Comment:Diabetes: >=200 mg/d L plus symptoms Blood Urea Nitrogen 10 10 - 20 mg/dL [facility] Creatinine 0.65(L) 0.80 - 1.50 mg/dL [facility] Sodium 135 135 - 145 mmol/L [facility] Potassium 4.2 3.5 - 5.0 mmol/L [facility] Comment: Please note: ??Patients with WBC >100,000 may have falsely elevated Potassium levels. ??For accurate Potassium quantification in these patients send serum separator tube (gold top) for subsequent determinations. ??Contact the Clinical Chemistry Laboratory if there are any questions. Chloride 106 98 - 107 mmol/L [facility] Carbon Dioxide 20(L) 22 - 31 mmol/L [facility] Anion Gap 9 5 - 15 mmol/L [facility] Calcium 7.6(L) 8.5 - 10.5 mg/dL [facility] Est Glomerular Filtration Rate 105 >=60 mL/min/1. 73 m?? [facility] Comment: This patient's estimated GFR [...] Lab Zak Graham MD CHEMISTRY ORDERABLE S [facility] [place] [address] * (ABNORMAL) Troponin (02/18/2024 1:40 AM EDT) Troponin-T, High Sensitivity 342(H) <=22 ng/L [facility] Comment: This patient's troponin T [...] can be found in the [facility] Laboratory Test Catalog Troponin - [facility] Laboratory Test Catalog Reference: Fourth [place] Definition of Myocardial Infarction. Journal of the [place] [employer] 2018;72:8158-3562 Blood 02/18/2024 1:40 AM EDT 02/18/2024 1:56 AM EDT Narrative Resulting Agency Comment Spec In Lab Zak Graham MD CHEMISTRY ORDERABLE S Performing Organization Address [facility] Co de Phone Number [facility] [place] [address] * POCT Glucose (02/17/2024 8:13 PM EDT) Glucose, POC 142 65 - 199 mg/dL [facility] Comment: Supplemental ranges: <140 mg/dL before meals <180 mg/dL all other times of the day Blood 02/17/2024 8:13 PM EDT 02/17/2024 8:13 PM EDT Zak Graham MD POINT OF CARE TEST ORDERABLES Performing Organization Address [facility] Co de Phone Number [facility] [place] [address] * POCT Glucose (02/17/2024 5:42 PM EDT) Glucose, POC 160 65 - 199 mg/dL [facility] Comment: Supplemental ranges: <140 mg/dL before meals <180 mg/dL all other times of the day Blood 02/17/2024 5:42 PM EDT 02/17/2024 5:42 PM EDT Zak Graham MD POINT OF CARE TEST ORDERABLES Performing Organization Address [facility] Co de Phone Number [facility] [place] [address] * Hemoglobin (02/17/2024 5:42 PM EDT) Hemoglobin 13.7 13.7 - 16.5 g/dL [facility] Blood 02/17/2024 5:42 PM EDT 02/17/2024 6:10 PM EDT Narrative Resulting Agency Comment Spec In Lab Zak Graham MD HEMATOLOGY ORDERABL ES Performing Organization Address [facility]/ZIP Co de Phone Number [facility] [place] [address] * Potassium (02/17/2024 5:42 PM EDT) Pathologist [facility] [place] Potassium 4.3 3.5 - 5.0 mmol/L [facility] Comment: Please note: ??Patients with [...] CHEMISTRY ORDERABLE S Performing Organization Address [facility] Co de Phone Number [facility] [place] [address] * (ABNORMAL) BLOOD GAS 2 ARTERIAL (02/17/2024 4:18 PM EDT) pH, Arterial 7.34(L) 7.35 - 7.45 [facility] PCO2, Arterial 40 35 - 45 mmHg [facility] PO2, Arterial 78(L) 85 - 104 mmHg [facility] Bicarbonate, Arterial 20.8 20.0 - 26.0 mmol/L [facility] Base Excess, Arterial -5.1(L) -3.0 - 3.0 mmol/L [facility] Hgb Blood Gas 14.6 13.7 - 16.5 g/dL [facility] Oxyhemoglobin, Arterial 93.0(L) 94.0 - 97.0 % [facility] Carboxyhemoglob in, Arterial 0.3 % [facility] Comment: Nonsmokers: 0.5-1.5% COHB Smokers: Variable, but usually less than 10% Toxic: 20-30% COHB Lethal: Greater than 60% COHB Methemoglobin, Arterial 0.8 <=1.5 % [facility] Na Whole Blood 136 135 - 145 mmol/L [facility] K Whole Blood 4.1 3.5 - 5.0 mmol/L [facility] Comment: Please note: Patients with WBC >100,000 may have falsely elevated Potassium levels. Contact the Clinical Chemistry Laboratory if there are any questions. ICa Whole Blood 1.10(L) 1.15 - 1.33 mmol/L [facility] Comment: Note: ??Total bilirubin higher than 20 mg/dL may lead to falsely low ionized calcium. CL Whole Blood 105 98 - 107 mmol/L [facility] Gluc Whole Bld 159 65 - 199 mg/dL [facility] Comment:Diabetes: >=200 mg/d L plus symptoms. Lactate WB 1.2 0.5 - 2.2 mmol/L [facility] FIO2 Art 40 % [facility] PF Ratio Art 195 [facility] Blood 02/17/2024 4:18 PM EDT 02/17/2024 4:18 PM EDT Zak Graham MD POINT OF CARE TEST ORDERABLES Performing Organization Address City/State/[facility] Co de Phone Number [facility] [place] [address] * XR Chest One View (02/17/2024 1:44 PM EDT) [employer] WORKSTATION ID [id number] RAD Anatomical Region Laterality Modality Chest N/A Digital Radiogra phy Impressions 02/17/2024 2:12 PM EDT 1. ??No definite pleural fluid collection or pneumothorax. 2. ??Right IJ [place]aila catheter tip terminates in a descending branch [...] have questions please contact the health care management coordinator that requested your imaging first. ? Electronically signed by: Denzel Hankins MD, [facility] ??([phone]), at 02/17/2024 2:12 PM Narrative 02/17/2024 2:12 PM EDT EXAMINATION: XR CHEST ONE VIEW CLINICAL HISTORY: s/p avr/cabg eval effusions TECHNIQUE: 1 view of the chest COMPARISON: Chest x-ray 01/09/2024, chest CT 02/03/2024 FINDINGS: ET tube tip terminates 5.2 cm above the carlos. Right IJ [place]-Kaila catheter tip terminates in a descending branch [...] 5.2 cm above the carlos. Right IJ [place]-Ganzcatheter tip terminates in a descending branch of [...] fluid collection or pneumothorax. 2. Right IJ [place]a catheter tip terminates in a descending branch ofthe right pulmonary artery. Suggest catheter retraction. 3. Additional support lines and tubes as above. Thank you for letting us participate in the care of this patient. If youare a health care provider and have any questions regarding this report,please contact the number below. For patients who have questions please contactthe health care management coordinator that requested your imaging first. Electronically signed by: Denzel Hankins MD, [facility]([phone]), at 02/17/2024 2:12 PM Zak Graham MD IMG DX ORDERABLES * (ABNORMAL) BLOOD GAS 2 ARTERIAL (02/17/2024 1:31 PM EDT) pH, Arterial 7.35 7.35 - 7.45 [facility] PCO2, Arterial 39 35 - 45 mmHg [facility] PO2, Arterial 320(H) 85 - 104 mmHg [facility] Bicarbonate, Arterial 21.4 20.0 - 26.0 mmol/L [facility] Base Excess, Arterial -4.2(L) -3.0 - 3.0 mmol/L [facility] Hgb Blood Gas 14.1 13.7 - 16.5 g/dL [facility] Oxyhemoglobin, Arterial 97.9(H) 94.0 - 97.0 % [facility] Carboxyhemoglob in, Arterial 0.3 % [facility] Comment: Nonsmokers: 0.5-1.5% COHB Smokers: Variable, but usually less than 10% Toxic: 20-30% COHB Lethal: Greater than 60% COHB Methemoglobin, Arterial 0.7 <=1.5 % [facility] Na Whole Blood 137 135 - 145 mmol/L [facility] K Whole Blood 4.2 3.5 - 5.0 mmol/L [facility] Comment: Please note: Patients with WBC >100,000 may have falsely elevated Potassium levels. Contact the Clinical Chemistry Laboratory if there are any questions. ICa Whole Blood 1.13(L) 1.15 - 1.33 mmol/L [facility] Comment: Note: ??Total bilirubin higher than 20 mg/dL may lead to falsely low ionized calcium. CL Whole Blood 108(H) 98 - 107 mmol/L [facility] Gluc Whole Bld 136 65 - 199 mg/dL [facility] Comment:Diabetes: >=200 mg/d L plus symptoms. Lactate WB 1.1 0.5 - 2.2 mmol/L [facility] FIO2 Art 100 % [facility] PF Ratio Art 320 [facility] Blood 02/17/2024 1:31 PM EDT 02/17/2024 1:31 PM EDT Zak Graham MD POINT OF CARE TEST ORDERABLES [facility] [place] [address] * (ABNORMAL) Coox2 (02/17/2024 1:21 PM EDT) pO2, Coox 44 mmHg [facility] Hgb Blood Gas 13.1(L) 13.7 - 16.5 g/dL [facility] Oxyhemoglobin, Coox 76.4 % [facility] Carboxyhemoglo bin, Coox 0.3 % [facility] Comment: Nonsmokers: 0.5-1.5% COHB Smokers: Variable, but usually less than 10% Toxic: 20-30% COHB Lethal: Greater than 60% COHB Methemoglobin, Coox 0.8 <=1.5 % [facility] Source Coox Mixed Venous [facility] Blood 02/17/2024 1:21 PM EDT 02/17/2024 1:21 PM EDT Zak Graham MD POINT OF CARE TEST ORDERABLES [facility] [place] [address] * (ABNORMAL) BLOOD GAS 2 ARTERIAL (02/17/2024 12:14 PM EDT) pH, Arterial 7.39 7.35 - 7.45 [facility] PCO2, Arterial 40 35 - 45 mmHg [facility] PO2, Arterial 338(H) 85 - 104 mmHg [facility] Bicarbonate, Arterial 23.7 20.0 - 26.0 mmol/L [facility] Base Excess, Arterial -1.3 -3.0 - 3.0 mmol/L [facility] Hgb Blood Gas 11.0(L) 13.7 - 16.5 g/dL [facility] Oxyhemoglobin, Arterial 98.8(H) 94.0 - 97.0 % [facility] Carboxyhemoglob in, Arterial 0.3 % [facility] Comment: Nonsmokers: 0.5-1.5% COHB Smokers: Variable, but usually less than 10% Toxic: 20-30% COHB Lethal: Greater than 60% COHB Methemoglobin, Arterial 0.3 <=1.5 % [facility] Na Whole Blood 135 135 - 145 mmol/L [facility] K Whole Blood 5.1(H) 3.5 - 5.0 mmol/L [facility] Comment: Please note: Patients with WBC >100,000 may have falsely elevated Potassium levels. Contact the Clinical Chemistry Laboratory if there are any questions. ICa Whole Blood 1.13(L) 1.15 - 1.33 mmol/L [facility] Comment: Note: ??Total bilirubin higher than 20 mg/dL may lead to falsely low ionized calcium. CL Whole Blood 106 98 - 107 mmol/L [facility] Gluc Whole Bld 132 65 - 199 mg/dL [facility] Comment:Diabetes: >=200 mg/d L plus symptoms. Lactate WB 1.4 0.5 - 2.2 mmol/L [facility] Blood 02/17/2024 12:1 4 PM EDT 02/17/2024 12:14 PM EDT Zak Graham MD POINT OF CARE TEST ORDERABLES Performing Organization Address [facility] Co de Phone Number [facility] [place] [address] * (ABNORMAL) Fibrinogen (02/17/2024 12:10 PM EDT) Fibrinogen 154(L) 200 - 393 mg/dL [facility] Comment: OR Result called by [...] ORDERABLE S Performing Organization Address [facility] de Phone Number [facility] [place] [address] * (ABNORMAL) Thrombin time (02/17/2024 12:10 PM EDT) Thrombin Time 18(H) 10 - 17 sec [facility] Comment: OR Result called by [...] MD HEMATOLOGY ORDERABLE S Performing Organization Address [facility]/ZIP Co de Phone Number [facility] [place] [address] * APTT (02/17/2024 12:10 PM EDT) Partial Thromboplastin Time 33 25 - 37 sec [facility] Comment: OR Result called by [...] MD HEMATOLOGY ORDERABLE S Performing Organization Address City/[facility]/ZIP Co de Phone Number [facility] [place] [address] * (ABNORMAL) Prothrombin Time (02/17/2024 12:10 PM EDT) Prothrombin Time 16.7(H) 9.4 - 12.5 sec [facility] Comment: OR Result called by ?? LOMARL OR Results read back by: ? silvia pagan at 2024-02-17 12:41:48 International Normalization Ratio 1.5 [facility] Comment: OR Result called by [...] Lab Tara York MD HEMATOLOGY ORDERABLE S [facility] [place] [address] * (ABNORMAL) Hemogram (02/17/2024 12:10 PM EDT) White Blood Cell 11.1(H) 4.0 - 9.5 x10(3)/mc L [facility] Red Blood Cell 3.50(L) 4.58 - 5.54 x10(6)/mc L [facility] Hemoglobin 10.4(L) 13.7 - 16.5 g/dL [facility] Hematocrit 30.2(L) 40.5 - 48.5 % [facility] Comment: This result has been called to SILVIA PAGAN by Eddie López on 02 17 2024 at 1226, and has been read back. Mean Cell Volume 86.3 82.9 - 93.1 fL [facility] Mean Cell Hemoglobin 29.7 27.5 - 32.1 pg [facility] Mean Cell Hemoglobin Concentration 34.4 32.0 - 35.7 g/dL [facility] Platelet 118(L) 145 - 357 x10(3)/mc L [facility] RDW Standard Deviation 40.2 36.0 - 45.0 fL [facility] RDW coefficient of variation 12.8 11.4 - 13.8 % [facility] Mean Platelet Volume 9.5 7.6 - 12.9 fL [facility] NRBC% auto 0.0 % [facility] NRBC Absolute 0.000 0.000 - 0.000 x10(3)/mc L [facility] Blood 02/17/2024 12:1 0 PM EDT 02/17/2024 12:19 PM EDT Narrative Resulting Agency Comment Spec In Lab Tara York MD HEMATOLOGY ORDERABLE S [facility] [address] [place] [address] * (ABNORMAL) BLOOD GAS 2 ARTERIAL (02/17/2024 11:43 AM EDT) pH, Arterial 7.38 7.35 - 7.45 [facility] PCO2, Arterial 40 35 - 45 mmHg [facility] PO2, Arterial 304(H) 85 - 104 mmHg [facility] Bicarbonate, Arterial 23.2 20.0 - 26.0 mmol/L [facility] Base Excess, Arterial -1.9 -3.0 - 3.0 mmol/L [facility] Hgb Blood Gas 11.1(L) 13.7 - 16.5 g/dL [facility] Oxyhemoglobin, Arterial 98.6(H) 94.0 - 97.0 % [facility] Carboxyhemoglob in, Arterial 0.3 % [facility] Comment: Nonsmokers: 0.5-1.5% COHB Smokers: Variable, but usually less than 10% Toxic: 20-30% COHB Lethal: Greater than 60% COHB Methemoglobin, Arterial 0.3 <=1.5 % [facility] Na Whole Blood 133(L) 135 - 145 mmol/L [facility] K Whole Blood 6.2(Critic al) 3.5 - 5.0 mmol/L [facility] Comment: Noted by brass instrument repair technician. Please note: Patients with WBC >100,000 may have falsely elevated Potassium levels. Contact the Clinical Chemistry Laboratory if there are any questions. ICa Whole Blood 0.97(L) 1.15 - 1.33 mmol/L [facility] Comment: Note: ??Total bilirubin higher than 20 mg/dL may lead to falsely low ionized calcium. CL Whole Blood 104 98 - 107 mmol/L [facility] Gluc Whole Bld 128 65 - 199 mg/dL [facility] Comment:Diabetes: >=200 mg/d L plus symptoms. Lactate WB 1.1 0.5 - 2.2 mmol/L [facility] Blood 02/17/2024 11:4 3 AM EDT 02/17/2024 11:43 AM EDT Zak Graham MD POINT OF CARE TEST ORDERABLES [facility] [place] [address] * (ABNORMAL) BLOOD GAS 2 ARTERIAL (02/17/2024 11:08 AM EDT) pH, Arterial 7.38 7.35 - 7.45 [facility] PCO2, Arterial 38 35 - 45 mmHg [facility] PO2, Arterial 334(H) 85 - 104 mmHg [facility] Bicarbonate, Arterial 22.0 20.0 - 26.0 mmol/L [facility] Base Excess, Arterial -3.2(L) -3.0 - 3.0 mmol/L [facility] Hgb Blood Gas 10.8(L) 13.7 - 16.5 g/dL [facility] Oxyhemoglobin, Arterial 98.7(H) 94.0 - 97.0 % [facility] Carboxyhemoglob in, Arterial 0.3 % [facility] Comment: Nonsmokers: 0.5-1.5% COHB Smokers: Variable, but usually less than 10% Toxic: 20-30% COHB Lethal: Greater than 60% COHB Methemoglobin, Arterial 0.3 <=1.5 % [facility] Na Whole Blood 131(L) 135 - 145 mmol/L [facility] K Whole Blood 6.4(Critic al) 3.5 - 5.0 mmol/L [facility] Comment: Noted by brass instrument repair technician. Please note: Patients with WBC >100,000 may have falsely elevated Potassium levels. Contact the Clinical Chemistry Laboratory if there are any questions. ICa Whole Blood 0.98(L) 1.15 - 1.33 mmol/L [facility] Comment: Note: ??Total bilirubin higher than 20 mg/dL may lead to falsely low ionized calcium. CL Whole Blood 104 98 - 107 mmol/L [facility] Gluc Whole Bld 127 65 - 199 mg/dL [facility] Comment:Diabetes: >=200 mg/d L plus symptoms. Lactate WB 1.0 0.5 - 2.2 mmol/L [facility] Blood 02/17/2024 11:0 8 AM EDT 02/17/2024 11:08 AM EDT Zak Graham MD POINT OF CARE TEST ORDERABLES Performing Organization Address [facility] Co de Phone Number [facility] [place] [address] * (ABNORMAL) Hemoglobin and Hematocrit, blood (02/17/2024 11:04 AM EDT) Pathologist [facility] [place] Hemoglobin 9.6(L) 13.7 - 16.5 g/dL [facility] Hematocrit 28.0(L) 40.5 - 48.5 % [facility] Comment: This result has been called to SILVIA PAGAN by Eddie López on 02 17 2024 at 1120, and has been read back. Blood 02/17/2024 11:0 4 AM EDT 02/17/2024 11:12 AM EDT Narrative Resulting Agency Comment Spec In Lab Zak Graham MD HEMATOLOGY ORDERABL ES Performing Organization Address [facility]/ZIP Co de Phone Number [facility] [place] [address] * (ABNORMAL) Platelet count (02/17/2024 11:04 AM EDT) Platelet 106(L) 145 - 357 x10(3)/mc L [facility] Immature Plt % 1.6 0.0 - 7.4 % [facility] Comment: Limitation of the Immature Platelet Fraction (IPF)-May be less reliable when the platelet count is less than 10v123/uL due to statistical imprecision. The IPF value [...] in a decreased state of production. References: [employer] The Clinical Value of the Immature Platelet Fraction (IPF) in Cell Recovery Document Number [id number] 03/2011 [employer] The Role of the Immature Platelet Fraction (IPF) in the Differential Diagnosis of Thrombocytopenia, Document [id number] V002/15/14 P002/17 Blood 02/17/2024 11:0 4 AM EDT 02/17/2024 11:12 AM EDT Narrative Resulting Agency Comment Spec In Lab Zak Graham MD HEMATOLOGY ORDERABL ES Performing Organization Address City/State/[facility] Co de Phone Number [facility] [place] [address] * (ABNORMAL) Fibrinogen (02/17/2024 11:04 AM EDT) Fibrinogen 149(L) 200 - 393 mg/dL [facility] Comment: OR Result called by ?? SALVLT OR Results read back by: ? Silvia Pagan at 2024-02-17 11:30:47 A fibrinogen level >100 mg/dL is adequate for hemostasis in most patients without underlying bleeding disorders. Blood 02/17/2024 11:0 4 AM EDT 02/17/2024 11:12 AM EDT Narrative Resulting Agency Comment Spec In Lab Zak Graham MD HEMATOLOGY ORDERABL ES [facility] [place] [address] * (ABNORMAL) BLOOD GAS 2 ARTERIAL (02/17/2024 10:41 AM EDT) pH, Arterial 7.37 7.35 - 7.45 [facility] PCO2, Arterial 44 35 - 45 mmHg [facility] PO2, Arterial 335(H) 85 - 104 mmHg [facility] Bicarbonate, Arterial 24.9 20.0 - 26.0 mmol/L [facility] Base Excess, Arterial -0.4 -3.0 - 3.0 mmol/L [facility] Hgb Blood Gas 11.5(L) 13.7 - 16.5 g/dL [facility] Oxyhemoglobin, Arterial 98.9(H) 94.0 - 97.0 % [facility] Carboxyhemoglob in, Arterial 0.1 % [facility] Comment: Nonsmokers: 0.5-1.5% COHB Smokers: Variable, but usually less than 10% Toxic: 20-30% COHB Lethal: Greater than 60% COHB Methemoglobin, Arterial 0.3 <=1.5 % [facility] Na Whole Blood 132(L) 135 - 145 mmol/L [facility] K Whole Blood 5.9(H) 3.5 - 5.0 mmol/L [facility] Comment: Please note: Patients with WBC >100,000 may have falsely elevated Potassium levels. Contact the Clinical Chemistry Laboratory if there are any questions. ICa Whole Blood 1.02(L) 1.15 - 1.33 mmol/L [facility] Comment: Note: ??Total bilirubin higher than 20 mg/dL may lead to falsely low ionized calcium. CL Whole Blood 104 98 - 107 mmol/L [facility] Gluc Whole Bld 129 65 - 199 mg/dL [facility] Comment:Diabetes: >=200 mg/d L plus symptoms. Lactate WB 1.1 0.5 - 2.2 mmol/L [facility] Blood 02/17/2024 10:4 1 AM EDT 02/17/2024 10:41 AM EDT Zak Graham MD POINT OF CARE TEST ORDERABLES [facility] [place] [address] * (ABNORMAL) BLOOD GAS 2 ARTERIAL (02/17/2024 10:06 AM EDT) pH, Arterial 7.38 7.35 - 7.45 [facility] PCO2, Arterial 42 35 - 45 mmHg [facility] PO2, Arterial 329(H) 85 - 104 mmHg [facility] Bicarbonate, Arterial 24.7 20.0 - 26.0 mmol/L [facility] Base Excess, Arterial -0.3 -3.0 - 3.0 mmol/L [facility] Hgb Blood Gas 11.0(L) 13.7 - 16.5 g/dL [facility] Oxyhemoglobin, Arterial 99.0(H) 94.0 - 97.0 % [facility] Carboxyhemoglob in, Arterial 0.3 % [facility] Comment: Nonsmokers: 0.5-1.5% COHB Smokers: Variable, but usually less than 10% Toxic: 20-30% COHB Lethal: Greater than 60% COHB Methemoglobin, Arterial 0.3 <=1.5 % [facility] Na Whole Blood 132(L) 135 - 145 mmol/L [facility] K Whole Blood 6.0(H) 3.5 - 5.0 mmol/L [facility] Comment: Please note: Patients with WBC >100,000 may have falsely elevated Potassium levels. Contact the Clinical Chemistry Laboratory if there are any questions. ICa Whole Blood 0.97(L) 1.15 - 1.33 mmol/L [facility] Comment: Note: ??Total bilirubin higher than 20 mg/dL may lead to falsely low ionized calcium. CL Whole Blood 102 98 - 107 mmol/L [facility] Gluc Whole Bld 123 65 - 199 mg/dL [facility] Comment:Diabetes: >=200 mg/d L plus symptoms. Lactate WB 1.1 0.5 - 2.2 mmol/L [facility] Blood 02/17/2024 10:0 6 AM EDT 02/17/2024 10:06 AM EDT Zak Graham MD POINT OF CARE TEST ORDERABLES [facility] [place] [address] * Surgical Pathology Report (02/17/2024 10:01 AM EDT) Final Diagnosis [id number] ? Location: [facility]; [facility]; The signing pathologist has (i) examined the relevant preparation(s) for the specimen(s) and (ii) rendered or confirmed the diagnosis(es). . ?Surgical Pathology DIAGNOSIS Aortic valve leaflets, excision: Valve leaflets with myxoid degeneration, nodular fibrosis and dystrophic calcifications. Electronically signed by: ?Lindsay FERNANDEZ, Livier Gonzalez Verified: ??02/24/2024 13:49 ??Pathologist Performed at: ??-[facility] [place] Dept. [place]ology, [place] [address] Welder Experimental: Job rBewer MD, FCAP, ??CLIA Certificate: [id number] SPECIMEN(S) SUBMITTED A - Aortic Valve Leaflets, [...] Sections Processing Blocks submitted for decalcification: A1. Pastry Mixer sections in 1 cassette labeled A1. ??ajw 02/24/2024 1:49 PM EDT [facility] AORTIC STRUCTURE / Unknown 02/17/2024 10:01 AM EDT 02/17/2024 10:01 AM EDT Zak Graham MD PATHOLOGY/CYTOLOGY ORDERABLES Performing Organization Address City/[facility]/ZIP Co de Phone Number [facility] [place] [address] * Specimen to Pathology (02/17/2024 10:01 AM EDT) AP Specimen 02/17/2024 10:0 1 AM EDT 02/17/2024 10:01 AM EDT Narrative [facility] - 02/17/2024 10:01 AM EDT Specimen requisition ordered. ??Separate Pathology report to follow Zak Graham MD PATHOLOGY/CYTOLOGY ORDERABLES Performing Organization Address City/[facility]/ZIP Co de Phone Number [facility] [place] [address] * (ABNORMAL) BLOOD GAS 2 ARTERIAL (02/17/2024 9:35 AM EDT) pH, Arterial 7.33(L) 7.35 - 7.45 [facility] PCO2, Arterial 35 35 - 45 mmHg [facility] PO2, Arterial 318(H) 85 - 104 mmHg [facility] Bicarbonate, Arterial 17.9(L) 20.0 - 26.0 mmol/L [facility] Base Excess, Arterial -8.0(L) -3.0 - 3.0 mmol/L [facility] Hgb Blood Gas 11.0(L) 13.7 - 16.5 g/dL [facility] Oxyhemoglobin, Arterial 98.8(H) 94.0 - 97.0 % [facility] Carboxyhemoglob in, Arterial 0.3 % [facility] Comment: Nonsmokers: 0.5-1.5% COHB Smokers: Variable, but usually less than 10% Toxic: 20-30% COHB Lethal: Greater than 60% COHB Methemoglobin, Arterial 0.3 <=1.5 % [facility] Na Whole Blood 131(L) 135 - 145 mmol/L [facility] K Whole Blood 5.8(H) 3.5 - 5.0 mmol/L [facility] Comment: Please note: Patients with WBC >100,000 may have falsely elevated Potassium levels. Contact the Clinical Chemistry Laboratory if there are any questions. ICa Whole Blood 0.98(L) 1.15 - 1.33 mmol/L [facility] Comment: Note: ??Total bilirubin higher than 20 mg/dL may lead to falsely low ionized calcium. CL Whole Blood 101 98 - 107 mmol/L [facility] Gluc Whole Bld 122 65 - 199 mg/dL [facility] Comment:Diabetes: >=200 mg/d L plus symptoms. Lactate WB 0.8 0.5 - 2.2 mmol/L [facility] Blood 02/17/2024 9:35 AM EDT 02/17/2024 9:35 AM EDT Zak Graham MD POINT OF CARE TEST ORDERABLES [facility] [place] [address] * (ABNORMAL) BLOOD GAS 2 VENOUS (02/17/2024 9:34 AM EDT) pH, Venous 7.22(Criti marquez) 7.32 - 7.42 [facility] Comment:Noted by brass instrument repair technician. PCO2, Venous 43 41 - 51 mmHg [facility] Comment:Noted by brass instrument repair technician. PO2, Venous 57(H) 25 - 40 mmHg [facility] Comment:Noted by brass instrument repair technician. Bicarbonate, Venous 17.1 mmol/L [facility] Comment:Noted by brass instrument repair technician. Base Excess, Venous -10.6 mmol/L [facility] Comment:Noted by brass instrument repair technician. Hgb Blood Gas 11.2(L) 13.7 - 16.5 g/dL [facility] Comment:Noted by brass instrument repair technician. Oxyhemoglobin, Venous 86.5 % [facility] Comment:Noted by brass instrument repair technician. Carboxyhemoglob in, Venous 0.3 % [facility] Comment: Noted by brass instrument repair technician. Nonsmokers: 0.5-1.5% COHB Smokers: Variable, but usually less than 10% Toxic: 20-30% COHB Lethal: Greater than 60% COHB Methemoglobin, Venous 0.0 <=1.5 % [facility] Comment:Noted by brass instrument repair technician. Na Whole Blood 156(H) 135 - 145 mmol/L [facility] Comment:Noted by brass instrument repair technician. K Whole Blood 5.5(H) 3.5 - 5.0 mmol/L [facility] Comment: Noted by brass instrument repair technician. Please note: Patients with WBC >100,000 may have falsely elevated Potassium levels. Contact the Clinical Chemistry Laboratory if there are any questions. ICa Whole Blood 1.03(L) 1.15 - 1.33 mmol/L [facility] Comment: Noted by brass instrument repair technician. Note: ??Total bilirubin higher than 20 mg/dL may lead to falsely low ionized calcium. CL Whole Blood 100 98 - 107 mmol/L [facility] Comment:Noted by brass instrument repair technician. Gluc Whole Bld 132 65 - 199 mg/dL [facility] Comment: Noted by brass instrument repair technician. Diabetes: >=200 mg/dL plus symptoms Lactate WB 1.0 0.5 - 2.2 mmol/L [facility] Comment:Noted by brass instrument repair technician. Blood Gas Source Venous [facility] Blood 02/17/2024 9:34 AM EDT 02/17/2024 9:34 AM EDT Zak Graham MD POINT OF CARE TEST ORDERABLES [facility] [place] [address] * (ABNORMAL) BLOOD GAS 2 ARTERIAL (02/17/2024 8:07 AM EDT) pH, Arterial 7.43 7.35 - 7.45 [facility] PCO2, Arterial 34(L) 35 - 45 mmHg [facility] PO2, Arterial 581(H) 85 - 104 mmHg [facility] Bicarbonate, Arterial 21.7 20.0 - 26.0 mmol/L [facility] Base Excess, Arterial -2.6 -3.0 - 3.0 mmol/L [facility] Hgb Blood Gas 14.5 13.7 - 16.5 g/dL [facility] Oxyhemoglobin, Arterial 99.0(H) 94.0 - 97.0 % [facility] Carboxyhemoglob in, Arterial 0.4 % [facility] Comment: Nonsmokers: 0.5-1.5% COHB Smokers: Variable, but usually less than 10% Toxic: 20-30% COHB Lethal: Greater than 60% COHB Methemoglobin, Arterial 0.3 <=1.5 % [facility] Na Whole Blood 139 135 - 145 mmol/L [facility] K Whole Blood 4.0 3.5 - 5.0 mmol/L [facility] Comment: Please note: Patients with WBC >100,000 may have falsely elevated Potassium levels. Contact the Clinical Chemistry Laboratory if there are any questions. ICa Whole Blood 1.09(L) 1.15 - 1.33 mmol/L [facility] Comment: Note: ??Total bilirubin higher than 20 mg/dL may lead to falsely low ionized calcium. CL Whole Blood 106 98 - 107 mmol/L [facility] Gluc Whole Bld 100 65 - 199 mg/dL [facility] Comment:Diabetes: >=200 mg/d L plus symptoms. Lactate WB 1.3 0.5 - 2.2 mmol/L [facility] Blood 02/17/2024 8:07 AM EDT 02/17/2024 8:07 AM EDT Zak Graham MD POINT OF CARE TEST ORDERABLES Performing Organization Address [facility]/ZIP Co de Phone Number [facility] [place] [address] * POCT Glucose (02/17/2024 6:38 AM EDT) Glucose, POC 98 65 - 199 mg/dL [facility] Comment: Supplemental ranges: <140 mg/dL before meals <180 mg/dL all other times of the day Blood 02/17/2024 6:38 AM EDT 02/17/2024 6:38 AM EDT Zak Graham MD POINT OF CARE TEST ORDERABLES Performing Organization Address [facility] Co de Phone Number [facility] [place] [address] * Transesophageal Echo/OR (02/17/2024 6:33 AM EDT) [...] dose on Sat02/17/24 at 1400, Until Discontinued, [place]aks teeth and / or gums. Scan the CHG vial in the [employer] Q-Care Oral Care Kit from floor stock. Ventilator-associated pneumonia prophylaxis For use in ICU/Critical care locations ONLY. Obtain kit from Floor Stock location. Scan CHG vial in the [employer] Q-Care Oral Care Kit, Routine Given 02/17/2024 [...] restart at 50% of previous rate. Call apartment house manager if goal not achieved at maximum rate. [...] PHENYLephrine and/or vasopressin ineffective. Call pager # [phone] if initiated. Titrate to keep systolic blood [...] 2.0 L/min/M2. Maximum volume 2 L. Call apartment house manager for additional fluid orders: pager #[phone]. Rate/Dose Verify 02/18/2024 8:00 AM EDT 1 mL/hr 1 mL/hr Rate/Dose Verify 02/18/2024 6:00 AM EDT 1 mL/hr 1 mL/hr Rate/Dose Verify 02/18/2024 4:00 AM EDT 1 mL/hr 1 mL/hr sodium chloride 0.9% infusion 10-30 mL/hr, Intravenous, DAILY PRN, Starting on Sat02/17/24 at 1307, Until Sat02/18/24 at 0835, Side port TKO rate, per [facility] nursing protocol. Rate/Dose Verify 02/17/2024 8:00 PM EDT 30 mL/hr 30 mL/hr Rate/Dose Verify 02/17/2024 6:00 PM EDT 30 mL/hr 30 mL/h r Rate/Dose Verify 02/17/2024 5:00 PM EDT 30 mL/hr 30 mL/h r sodium chloride 0.9% infusion 10-30 mL/hr, Intravenous, DAILY PRN, Starting on Sat02/17/24 at 1307, Until Sat02/18/24 at 0835, Side port TKO rate, per [facility] nrusing protocol. Rate/Dose Verify 02/18/2024 8:00 AM [...] Routine documented in this encounter Care Teams Crusher Loader Operator Relationship Specialty Start Date End Date Aparna Jordan APRN PCP - General Family Medicine 10/21/23 documented as of this encounter
--- OUTSIDE RECORDS SUMMARY | 2024-05-27 08:19 | XMS_ITS | Encounter Summary ---
Author Organization Formerly [facility] [place] [address] Care Team Providers Care Poultry Grader Name Role Phone Vanessa Christian MAURI Primary Care Provider [phone] Encounter Details Date Type Department Care Team (Late st Contact Info) Description 01/10/2024 Orders Only [place] [id number] Lawson Napoles PA [facility] [place] [address] Screening for cardiovascular condition; Aortic valve stenosis, [...] AM EDT Office Visit Cardiology at [address] [place] [phone] Neftali Ernandez MD [facility] CARDIOLOGY [facility] [address] documented as of this encounter Visit Diagnoses Diagnosis Screening for cardiovascular condition Screening for other and unspecified cardiovascular conditions Aortic valve stenosis, etiology of cardiac valve disease unspecified documented in this encounter Care Teams Poultry Grader Relationship Specialty Start Date End Date Vanessa Christian APRN PCP - General Family Medicine 10/21/23 documented as of this encounter
--- OUTSIDE RECORDS SUMMARY | 2024-05-27 08:19 | XMS_ITS | Encounter Summary ---
[place] [address] Care Team Providers Care Bullet Casting Operator Name Role Phone Victor M Lafleur MD Primary Care Provider [phone] Reason for Visit * Reason Onset Date Comments Referral 09/20/2023 Encounter Details Date Type Department Care Team (Late st Contact Info) Description 09/20/2023 Telephone Cardiology at [address] [phone] Karen Billy, mlt Social History Tobacco Use Types Packs/Day Years [...] AM EDT Office Visit Cardiology at [address] [place] [phone] Neftali Ernandez MD [facility] [place] [address] documented as of this encounter Visit Diagnoses Not on filedocumented in this encounter Care Teams Bullet Casting Operator Relationship Specialty Start Date End Date Victor M Lafleur MD PCP - General 10/02/13 10/20/23 documented as of this encounter
--- OUTSIDE RECORDS SUMMARY | 2024-05-27 08:19 | XMS_ITS | Encounter Summary ---
Author Organization [facility] [place] [address] Care Team Providers Care Vessel Scrapper Helper Name Role Phone Vanessa Christian APRN Primary Care Provider [phone] Encounter Details Date Type Department Care Team [...] AM EDT Office Visit Cardiology at [address] [place] [phone] Neftali Ernandez MD [facility] [place] [address] documented as of this encounter Visit Diagnoses Not on filedocumented in this encounter Care Teams Vessel Scrapper Helper Relationship Specialty Start Date End Date Vanessa Christian APRN PCP - General Family Medicine 10/21/23 documented as of this encounter
--- OUTSIDE RECORDS SUMMARY | 2024-05-27 08:19 | XMS_ITS | Encounter Summary ---
Author Organization Formerly [facility] [place] [address] Care Team Providers Care Laundry Attendant Name Role Phone Vanessa Christian MAURI Primary Care Provider [phone] Reason for Visit * Auth/Cert (Routine) Specialty [...] W RHC (WRVU 5.9) Rima Dickinson MD [facility] [place] [address] [facility] Referral ID Status Reason Start Date Expiration Date Visits Re quested Visits Authorized [id number] 1 1 Encounter Details Date Type Department Care Team (Late st Contact Info) Description 02/03/2024 10:00 AM EDT - 02/03/2024 11:00 AM EDT [place] [address] Saira Lua MD [facility] [place] [address] CARDIAC CATHETERIZATION Social History Tobacco Use Types [...] lbs Follow-up Visits Follow up with your account developer in 2-4 weeks Access Site 'Black and Blue' and tenderness is expected during the first week Call if you noted a mass (lump) greater than the size of a ellis Call Office with any Questions and if you have any of the following Clarence Lane M.D Interventional Butcher Fish Retail Loss Prevention Officer #: [phone] * Attachments The following attachments cannot be [...] Tablet Take 1 tablet by mouth daily. lisinopriL (Zestril) 5 mg [...] 02/03/2024 11:48 AM EDT [facility] Interventional Cardiology Adult Pre-Procedure H&P Update: Cardiac Catheterization Karlos Anthony [id number] 1960 Chief Complaint: Aortic stenosis HPI: Mr. [...] is inthe chart Clarence Lane MD Interventional Butcher Fish 02/03/24 11:48 AM documented in this encounter Miscellaneous Notes * Brief Op Note - Clarence Lane MD - 02/03/2024 12:51 PM EDT Preliminary Cardiac Catheterization Procedure Note: Patient Name: Karlos Anthony : [id number] MR#: [id number] Case Date: 02/03/2024 Retail Loss Prevention Officer: Surgeon(s) and Role: * Saira Lua [...] AM EDT Office Visit Cardiology at [address] [phone] Neftali Ernandez MD [facility] [place] [address] Scheduled Orders Name Type Priority Associated Diagnoses [...] Modality Other Narrative 02/12/2024 3:47 PM EDT ?[facility] ? Cardiac Catheterization/Intervention Report ? Patient Name: Patenaude, Karlos ? Procedure Date: 02/03/2024 ? A #: [id number] ? Primary Physician: Saira Lua ? Case #: [id number] ? File Name: [id number] ? Catheterization Order Number: [id number] ? [facility] ? Final Report [place], [place] ? Patient Name: ? Karlos Patenaude ? ID#: ?[id number] ? : ?1960 ? Procedure Date: ? February 03, 2024 ? Case #: ? [id number] ? Room: ? 5 ? Case Physician: [...] Procedure Note Saira Lua MD - 02/12/2024 [facility] Cardiac Catheterization/Intervention Report Patient Name: Karlos Anthony Procedure Date: 02/03/2024 A #: [id number] Primary Physician: Saira Lua Case #: [id number] File Name: [id number] Catheterization Order Number: [id number] [facility] FinalReport [place], [place] Patient Name: Karlos Anthony ID#:[id number] :1960 Procedure Date: February 03, 2024 Case [...] was designated as ASA Class III. The [facility] clinical frailty scale is 3: Managing [...] Saira Lua M.D. Report Finalized: 02/12/2024 15:43 aSira Lua MD CARDIAC CATH ORDERAB LES * EKG 12 Lead (02/03/2024 10:33 AM EDT) Ventricular rate 56 BPM MUSE SYSTEM Atrial Rate 56 BPM MUSE SYSTEM P-R Interval 196 ms MUSE SYSTEM QRS Duration 86 ms MUSE SYSTEM Q-T Interval 386 ms MUSE SYSTEM QTC Calculated (Bezet) 372 ms MUSE SYSTEM Calculated P [place] 59 degrees MUSE SYSTEM Calculated R [place] 34 degrees MUSE SYSTEM Calculated T [place] 63 degrees MUSE SYSTEM INTERPRETATION Sinus bradycardia [...] MD) documented in this encounter Care Teams Laundry Attendant Relationship Specialty Start Date End Date Vanessa Christian, MAURI PCP - General Family Medicine 10/21/23 documented as of this encounter
--- OUTSIDE RECORDS SUMMARY | 2024-05-27 08:19 | XMS_ITS | Encounter Summary ---
Author Organization [facility] [place] [address] Care Team Providers Care Sand Tester Name Role Phone Vanessa Christian APRN Primary Care Provider Encounter Details Date Type Department Care Team (Late st Contact Info) Description 10/21/2023 Abstract Cardiology at [address] [phone] Adam Mayes RN Social History Tobacco Use [...] AM EDT Office Visit Cardiology at [address] [phone] Neftali Ernandez MD [facility] [place] [address] documented as of this encounter Visit Diagnoses Not on filedocumented in this encounter Care Teams Sand Tester Relationship Specialty Start Date End Date Vanessa Christian APRN PCP - General Family Medicine 10/21/23 documented as of this encounter
--- OUTSIDE RECORDS SUMMARY | 2024-05-27 08:19 | XMS_ITS | Encounter Summary ---
Author Organization [facility] [place] [address] Care Team Providers Care Mineral Engineer Name Role Phone Victor M Lafleur MD Primary Care Provider [phone] Encounter Details Date Type Department Care Team (Late st Contact Info) Description 09/26/2023 Abstract Cardiology at [address] [phone] Karen Billy, RN Nonrheumatic aortic [...] AM EDT Office Visit Cardiology at [address] [phone] Neftali Ernandez MD [facility] [place] [address] documented as of this encounter Visit Diagnoses Diagnosis Nonrheumatic aortic valve stenosis Aortic valve disorders Nevus of face Benign neoplasm of skin of other and unspecified parts of face documented in this encounter Care Teams Mineral Engineer Relationship Specialty Start Date End Date Victor M Lafleur MD PCP - General 10/02/13 10/20/23 documented as of this encounter
--- OUTSIDE RECORDS SUMMARY | 2024-05-27 08:19 | XMS_ITS | Encounter Summary ---
Author Organization [facility] Address [facility] [place] [address] Care Team Providers Care Risk Assessment Consultant Name Role Phone Vanessa Christian MAURI Primary Care Provider [phone] Reason for Visit * Consultation (Routine) - Closed Specialty Diagnoses / Procedures Referred By Contac t Referred To Contact Cardiac Surgery Diagnoses Nonrheumatic aortic valve stenosis significant - TAVR ( defers to Card Surg d/t age) Neftali Ernandez MD [facility] [place] [address] Zak Farmer MD [facility] [place] [address] Referral ID Status Reason Start Date Expiration Date V isits Requested Visits Authorized [id number] Closed Consult, Test & Treat 10/21/2023 10/20/2024 1 1 Encounter Details Date Type Department Care Team (Late st Contact Info) Description 01/09/2024 1:40 PM EDT Office [place] [address] Zak Farmer MD [facility] [place] [address] Nonrheumatic aortic valve stenosis Social [...] office. Best personal regards, Zak Farmer MD [phone] In aggregate 55 minutes were spent evaluating [...] AM EDT Office Visit Cardiology at [address] [place] [phone] Neftali Ernandez MD [facility] [place] [address] documented as of this encounter Results * [...] ? Electronically signed by: Toby Dave MD, [facility] ([phone]), at 01/09/2024 3:11 PM Narrative 01/09/2024 3:11 [...] first. Electronically signed by: Toby Dave MD, [facility]([phone]), at 01/09/2024 3:11 PM Zak Farmer MD IMG DX ORDERABLES * Basic Metabolic Panel (non-fasting) (01/09/2024 2:58 PM EDT) Glucose 102 65 - 199 mg/dL [facility] Comment:Diabetes: >=200 mg/d L plus symptoms Blood Urea Nitrogen 15 10 - 20 mg/dL [facility] [...] 107 mmol/L [facility] Carbon Dioxide 27 22 - 31 mmol/L [facility] Anion Gap 7 5 - 15 mmol/L [facility] Calcium 9.5 8.5 - 10.5 mg/dL [facility] Est Glomerular Filtration Rate 91 >=60 mL/min/1. 73 m?? [facility] [...] ORDERABLE S [facility] [place] [address] * Hepatic Function Panel (01/09/2024 2:58 PM EDT) Pathologist [facility] Protein, Total 6.7 6.1 - 8.0 g/dL [facility] Albumin 4.5 3.2 - 5.2 g/dL [facility] Aspartate Aminotransferase 21 0 - 39 unit/L [facility] Alanine Aminotransferase 21 0 - 55 unit/L [facility] Alkaline Phosphatase 81 40 - 130 unit/L [facility] Bilirubin, Total 0.7 0.2 - 1.3 mg/dL [facility] Bilirubin, Direct 0.2 0.0 - 0.3 mg/dL [facility] Blood 01/09/2024 2:58 PM EDT 01/09/2024 3:03 PM EDT Narrative Resulting Agency Comment Spec In Lab Zak Farmer MD CHEMISTRY ORDERABLE S Performing Organization Address [facility] Co de Phone Number [facility] [place] [address] * Prothrombin Time (01/09/2024 2:58 PM EDT) [facility] Prothrombin Time 10.6 9.4 - 12.5 sec [facility] International Normalization Ratio 0.9 [facility] Comment: An INR <2.0 indicates [...] MD HEMATOLOGY ORDERABL ES Performing Organization Address City/[facility]/ZIP Co de Phone Number [facility] [place] [address] * Type and Screen Future Surgery, [place] [...] CALOSE ASH [facility] Organization Address City/State/ZIP Co de Phone Number [facility] [place] [address] documented in this encounter Visit Diagnoses Diagnosis Nonrheumatic aortic valve stenosis Aortic valve disorders Nonrheumatic aortic valve stenosis Aortic valve disorders documented in this encounter Care Teams Risk Assessment Consultant Relationship Specialty Start Date End Date Vanessa Christian APRN PCP - General Family Medicine 10/21/23 documented as of this encounter
--- OUTSIDE RECORDS SUMMARY | 2024-05-27 08:19 | XMS_ITS | Encounter Summary ---
Author Organization [facility] [place] [address] Care Team Providers Care Secondary Teacher Name Role Phone Vanessa Christian APRN Primary Care Provider [phone] Encounter Details Date Type Department Care Team [...] AM EDT Office Visit Cardiology at [address] [phone] Neftali Ernandez MD [facility] [place] [address] documented as of this encounter Visit Diagnoses Not on filedocumented in this encounter Care Teams Secondary Teacher Relationship Specialty Start Date End Date Vanessa Christian APRN PCP - General Family Medicine 10/21/23 documented as of this encounter
--- OUTSIDE RECORDS SUMMARY | 2024-05-27 08:19 | XMS_ITS | Encounter Summary ---
Author Organization Count Includes [facility] Address [facility] Ivana linareseileen [place] [id number] Care Team Providers Care Battery Parts Assembler Name Role Phone Vanessa Christian MAURI Primary Care Provider [phone] Reason for Referral * Consultation (Routine) - Closed Specialty Diagnoses / Procedures Referred By Contac t Referred To Contact Cardiac Surgery Diagnoses Nonrheumatic aortic valve stenosis significant - TAVR ( defers to Card Surg d/t age) [place] Loya MD [facility] [place] [address] Zak Farmer MD [facility] [place] [address] Referral ID Status Reason Start Date Expiration Date V isits Requested Visits Authorized [id number] Closed Consult, Test & Treat 10/21/2023 10/20/2024 1 1 Reason for Visit * Reason Comments Chest Pain Shortness of Breath Aortic Stenosis Encounter Details Date Type Department Care Team (Late st Contact Info) Description 10/21/2023 1:20 PM EST Office Visit Cardiology at [address] [phone] [place] Loya MD [facility] [place] [address] Nonrheumatic aortic valve stenosis Social History Tobacco [...] Diagnosis Aortic stenosis 12/2022 TTE ([facility]): VITA 0.8-0.9 cm2 (MG 28 mmHg, DOI 3.6 m/s, SVI 35 cc/m2). Trace regurgitation. Normal bi-v s/f, no other valve findings Gastroesophageal reflux Nevus of face Right sikhism Hypertension HLD (hyperlipidemia) MEDICATIONS: Current Outpatient Medications [...] the meantime will refer to [facility] at [facility] for further evaluation. Logistics and preliminary review [...] the meantime will refer to [facility] at [facility] for further evaluation. Logistics and preliminary review [...] 11:00 AM EDT Office Visit Cardiology at [address] [place] [phone] [place] Loya MD [facility] [place] [address] Scheduled Referrals Name Type Priority Associated Diagnoses Order Schedule Amb Referral to Structural Heart Outpatient Referral Routine Nonrheumatic aortic valve stenosis Ordered: 10/21/2023 documented as of this encounter Visit Diagnoses Diagnosis Nonrheumatic aortic valve stenosis Aortic valve disorders documented in this encounter Care Teams Battery Parts Assembler Relationship Specialty Start Date End Date Vanessa Christian APRN PCP - General Family Medicine 10/21/23 documented as of this encounter
--- OUTSIDE RECORDS SUMMARY | 2024-05-27 08:19 | XMS_ITS | Encounter Summary ---
Author Organization [facility] [place] [address] Care Team Providers Care Assistant Director Of Residence Life Name Role Phone Vanessa Christian APRN Primary Care Provider [phone] Encounter Details Date Type Department Care Team (Late st Contact Info) Description 12/26/2023 Notes Only Cardiology at [address] [phone] Neftali Ernandez MD [facility] [place] [address] Social History Tobacco Use Types Packs/Day Years [...] 1:37 PM EDT Echocardiogram images reviewed from [facility]. Indeed, the aortic valve appears severely stenotic. Cannotrule out bicuspid valve documented in this encounter Plan of Treatment Upcoming Encounters Date Type Department Care Team (Late st Contact Info) Description 05/27/2024 11:00 AM EDT Office Visit Cardiology at [address] [phone] Neftali Ernandez MD [facility] [place] [address] documented as of this encounter Visit Diagnoses Not on filedocumented in this encounter Care Teams Assistant Director Of Residence Life Relationship Specialty Start Date End Date Vanessa Christian APRN PCP - General Family Medicine 10/21/23 documented as of this encounter
--- OUTSIDE RECORDS SUMMARY | 2024-05-27 08:19 | XMS_ITS | Encounter Summary ---
Author Organization [facility] [place] [address] Care Team Providers Care Stone Gang Sawyer Name Role Phone Aparna Jordan MAURI Primary Care Provider [phone] Reason for Visit * Auth/Cert (Routine) Specialty [...] (WRVU 7.93) Hayder Graham MD [facility] [place] [address] [facility] Referral ID Status Reason Start Date Expiration Date Visits Re quested Visits Authorized [id number] 1 1 Encounter Details Date Type Department Care Team (Late st Contact Info) Description 02/17/2024 7:30 AM EDT - 02/17/2024 1:26 PM EDT Surgery [place] [id number] Hayder Graham MD [facility] [place] [address] ENDOSCOPIC HARVEST VEIN(S) FOR CABG (WRVU 0.31) [...] Patient Age: 63 y.o. Birthdate: 1960 Language: Tuvaluan Race: White Ethnicity: Not nor Admit Date: 02/17/2024 Discharge Date: 02/24/24 Attending Physician: Hayder Graham MD Follow-up Recommendations for Providers: Please continue routine management of cardiovascular risk factors including blood pressure, lipids,glucose, etc. Please note any changes to medications. Patient to follow up with PCP, Aparna Jordan APRN, in 1-2 weeks. Patient to follow up with Rotary Machine Operator, Neftali Ernandez MD , in 2 weeks. Patient to follow up with Cardiac Surgeon, Dr. Hayder Graham, with a chest x-ray, EKG, and Echo. Inpatient Provider Contact Information: [facility] [place] [facility] [place] [address] FAX [phone] Discharge Diagnoses (Hospital Problems) Primary Diagnoses: /CAD [...] Hypertension 08/14/2023 Nevus of face 09/26/2023 Right baptist Past Surgical History: Procedure Laterality Date PRO CABG, ARTERIAL, SINGLE N/A 02/17/2024 @CABG, USING ARTERIAL GRAFT;SINGLE ARTERIAL GRAFT (WRVU 33.75) performed by Hayder Graham MD at [facility] MAIN OR PRO CABG, ARTERY-VEIN, TWO N/A 02/17/2024 @CABG, TWO VENOUS GRAFTS & ARTERIAL GRAFT (WRVU 7.93) performed by Hayder Graham MD at [facility] MAIN OR PRO ENDOSCOPY W/VIDEO-ASST VEIN HARVEST, CABG Left 02/17/2024 ENDOSCOPIC HARVEST VEIN(S) FOR CABG (WRVU 0.31) performed by Hayder Graham MD at [facility] MAIN OR PRO REPLACEMENT PROSTHETIC AORTIC VALVE OPEN W CARDIOPULMONARY BYPASS HOMOGRF/STENT N/A 02/17/2024 @REPLACE AORTIC VALVE, OPEN, W\CPB, W\PROSTHETIC VALVE (WRVU 41.32) performed by Hayder Graham MD at [facility] MAIN OR Prior To Admission Medications Medications [...] insufficiency. He has glaucoma. He used to bacCantimer until about 15 years ago. He has undergone prior herniorrhaphy. 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 Major Procedures/Operations: 02/17/24 s/p avr/cabgx3 CABG x 3 JOSE->LAD SVG->dRCA SVG->OM1 EVH from LLE AVR with a 23 mm Inspiris Bioprosthesis Hospital Course: Karlos Garcia was admitted to [facility] on 02/17/2024 via the Same [...] Hayder Graham and/or the Cardiac Surgery Physician Distribution Coordinator Team may be reached at . [...] Please refer to the card with the [place] Heart Association Guidelines for more information. You [...] Dr. Hayder Graham. You may use a [place] Track or treadmill but avoid any pulling [...] friends, go to a movie, go to uatsdin, etc. Heavy activities: No hunting, skiing, jogging, [...] should resume a low fat, low cholesterol, [place] Heart Association Diet. Driving: No driving until [...] while being managed by your PCP and/or Rotary Machine Operator. For future medication refills, please refer to your PCP and/or Rotary Machine Operator after your discharge from our service. Thank you REMOVE CHEST TUBE SUTURES ON OR AFTER 03/02/24 Home oxygen therapy: N/A Follow up appointments: You should follow up with your PCP, Aparna Jordan APRN, in 1-2 weeks. Our office will schedule an appointment with your Rotary Machine Operator, Neftali Ernandez MD , in 2 weeks. You have an appointment with your Cardiac Surgeon, Dr. Hayder Graham, 4 weeks with a chest x-ray, EKG, and Echo before your appointment. Cardiac Rehabilitation: Karlos Garcia was seen regarding participation in the outpatient Phase 2Cardiac Rehabilitation at [facility]. The patient agrees to a referral to this program. The referral will be sent at discharge and the patient should be contacted by the Program within 1- 2 weeks from discharge. Future Appointments and Orders Future Orders Complete By Expires Echocardiogram Transthoracic [07581 CPT(R)] 03/26/2024 09/25/2024 Process Instructions: Scheduling Instructions: Questions: Where will study be performed?: [facility] Does the patient have Congenital Heart Disease?: Does patient require sedation?: Sedation rationale: XR Chest PA & Lateral (Generic) [81968 38846 Custom] 03/26/2024 09/25/2024 Process Instructions: Scheduling Instructions: Questions: Portable exam?: Reason for exam and clinical history: s/p avr/cabg Clinical information / jerome questions for radiologist: Stat read required?: Date of injury if applicable: Requested Time: Where will study be performed?: [facility] Radiology Referral to Cardiac Rehab [FNU799 Custom] As directed Process Instructions: If no progress note charted, please enter Clinical details in comments. Scheduling Instructions: Questions: My question or request is: s/p AVR/CABG. Cardiac rehab at [facility]. Referral to Home Health [REF34 Custom] As directed Process Instructions: If no progress note charted, please enter Clinical details in comments. Scheduling Instructions: Comments: Please evaluate Karlos Garcia for admission to Home Health. 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 [address] [place] [phone] RN orders: Cardiopulmonary assessment, incisional assessment, assess [...] issues please call the Cardiology Office at [phone] FOR MEDICARE ONLY: (please delete this section [...] [facility] Section [facility] [place] [address] FAX [phone] Date: 02/24/2024 CC: Aparna Jordan, MAURI Jordan, Aparna Sherman APRN [address] [place] [address] documented in this encounter Discharge Instructions * [...] Hayder Graham and/or the Cardiac Surgery Physician Distribution Coordinator Team may be reached at . [...] Please refer to the card with the [place] Heart Association Guidelines for more information. You [...] Dr. Hayder Graham. You may use a [place] Track or treadmill but avoid any pulling [...] friends, go to a movie, go to uatsdin, etc. Heavy activities: No hunting, skiing, jogging, [...] should resume a low fat, low cholesterol, [place] Heart Association Diet. Driving: No driving until [...] while being managed by your PCP and/or Rotary Machine Operator. For future medication refills, please refer to your PCP and/or Rotary Machine Operator after your discharge from our service. Thank you REMOVE CHEST TUBE SUTURES ON OR AFTER 03/02/24 Home oxygen therapy: N/A Follow up appointments: You should follow up with your PCP, Aparna Jordan APRN, in 1-2 weeks. Our office will schedule an appointment with your Rotary Machine Operator, Neftali Ernandez MD , in 2 weeks. You have an appointment with your Cardiac Surgeon, Dr. Hayder Graham, 4 weeks with a chest x-ray, EKG, and Echo before your appointment. Cardiac Rehabilitation: Karlos Garcia was seen regarding participation in the outpatient Phase 2Cardiac Rehabilitation at [facility]. The patient agrees to a referral [...] 0600 and on the weekends please page [phone]. * Eric Barahona PA - 02/23/2024 9:27 [...] 0600 and on the weekends please page [phone]. * Tiffanie Owens - 02/22/2024 2:48 PM [...] Pt reports his dtr is coming from [place] to stay upon d/c for 10 days. 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 * Kelley Hinson PTA - 02/21/2024 10:15 [...] Pt reports his dtr is coming from [place] to stay upon d/c for 10 days. 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 * Kelley Hinson PTA - 02/20/2024 3:32 PM EDT 02/20/24 2706 Evaluation & Treatment Document Type contact Total Minutes, Physical Therapy 0 Comment, Session Not Performed Checked in w/ pt this PM for ongoing PT services, pt politely declined, stating he had been dealing w/ nausea all day, made plan to see him tomorrow morning, will f/u at that time Kelley Hinson PTA Pager: [phone] Physical Therapy Inpatient Rehab Department * Louisa [...] 0600 and on the weekends please page [phone]. * Maris Benavides, PT - 02/19/2024 11:22 [...] Pt reports his dtr is coming from [place] to stay upon d/c for 10 days. 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 Precautions/Special Considerations: STERNAL [...] outlined inthis evaluation. MARIS BENAVIDES, PT Pager: [phone] Physical Therapy Inpatient Rehabilitation Department Time IN / OUT: 5601-3149 Total Time: 38 (eval) minutes; * Antonio [...] 0600 and on the weekends please page [phone]. * Minnie Begum PA - 02/18/2024 8:25 [...] 0600 and on the weekends please page [phone]. * Kim Ha RCP - 02/17/2024 2:25 [...] plan since last visit. Hayder Graham MD [phone] Source Note - Hayder Graham MD - 02/17/2024 7:00 AM EDT Patient Name: Karols Garcia Patient Age: 63 y.o. Birthdate: 1960 [...] given written informed consent. Hayder Graham MD [phone] * Hayder Graham MD - 02/17/2024 7:00 [...] insufficiency. He has glaucoma. He used to bacCantimer until about 15 years ago. He has [...] given written informed consent. Hayder Graham MD [phone] documented in this encounter Miscellaneous Notes * [...] for follow-up Home Health & Hospice, [address] [place] [address] Cardiac Rehab, [facility] [address] [place] [address] [place] [address] Transportation: family or friend will provide Functional status prior to admission: Independent Home Environment: Others in the home: alone. Current Living Arrangements: home/apartment/condo. Accessibility Concerns:a few steps to enter 1 floor home. Current Functional Ability: Assistive Person and Equipment DME used at home: none DME Needed at Discharge: N/A Patient is insured through: Primary Insurance: [facility] Payor: [facility] / Plan: [facility] PPO / Product Type: *No [...] pain managed with scheduled Tylenol. Worked with Lulu. Ambulated in the roque multiple times during [...] anticipated Patient is insured through: Primary Insurance: [facility] Payor: [facility] / Plan: [facility] PPO / Product Type: *No Product type* / Secondary Insurance: N/A Last Physical Therapy Recommendation: home with home health (Str coming to stay for a week or two upon d/c) with to be determined (owns rolling walker, shower seat) Plan for discharge is: Home w/ Services Outpatient Agency/Support Group Needs: Homecare agency Home Health Services: Physical Therapy, Registered Nurse Agency Referrals: [facility]. [address] [place] [phone] Transportation: family or friend will provide Barriers to discharge: Discharge planning Plan going forward: Service Care Management will continue to follow and assist with discharge planning and coordination of care as indicated. Anticipated Date of Discharge: 02/22/2024 Rhett Bell RN RN/CM - Cellphone: [phone] Pager: [phone] Covering Service RN/CM * Plan of Care [...] Yang RN - 02/19/2024 10:44 AM EDT [facility] Karlos Garcia was seen today regarding participation in the outpatient Phase 2 Cardiac Rehabilitation at [facility]. The patient agrees to a referral [...] Hypertension 08/14/2023 Nevus of face 09/26/2023 Right baptist Hospitalizations Within the Past 30 Days: no previous admission in last 30 days Current Decision-Making Capacity: Self If AD's have not been completed the following surrogate would be surrogate decision maker per [place] surrogate decision making law. (Only good for 180 days) Any patient receiving care in [place] must abide by [place] law. The hierarchy [...] (i) The agent with financial power of united states attorney or a conservator appointed in accordance [...] In the past 12 months has the [employer], gas, oil, or water [employer] threatened to shut off services in your [...] Home Address confirmed as: [address] [facility] [address] Physical address: [address] [facility], [address] Social & Family Supports: All names listed [...] Information: none noted Health/Prescription Coverage: Primary Insurance: [facility] Payor: [facility] / Plan: [facility] PPO / Product Type: *No Product type* / Secondary Insurance: N/A ; Prescription Coverage: Yes Preferred Pharmacy: [id number] [address] [place] Status: Patient is a : No Primary Care Provider confirmed: Aparna Jordan, TECHNICAL FELLOW [phone] Patient/Caregiver Goals of Treatment: dc to home Potential Needs for Transition of Care: home health care Agency Referrals: I have met with the patient to: discuss discharge planning needs. provide the [facility] Office of Care Management letter from the Checkout Supervisor pertaining to rehab referrals. provide a letter describing our affiliations within the [facility] and educate about their right to choose where referrals are sent. provide a list of Home Health Agencies / Durable Medical Equipment vendors which serve their preferred geographic area. provided patient with [facility] Star Quality Rating handout. They have requested referrals to: [facility] [address] [place] [address] Note routed to a Gag Writer who will communicate referrals to facilities and [...] daughter, Cielo, will be coming in from [place] on 02/18, to stay with him , in his home ,at discharge. Pt states that she is able to provide support/assist for any needs that he may have when discharged. Plan: dc to home A member of the Care Management team will continue to monitor progress, follow for continuity of care and assist with transition of care planning. Reina Greene RN CM, BSN, [facility]- Ext [phone] * Plan of Care - Binta Trinidad [...] Operative Note Patient Name: Karlos Garcia : [id number] MR#: [id number] Case Date: 02/17/2024 Surgeon: Surgeon(s) and Role: * Hayder Graham MD - Primary * Neftali Menon PA - Physician Distribution Coordinator Preoperative diagnosis: CAD Postoperative diagnosis: CAD, [...] Drains: Mediastinal and Left pleural Disposition: [facility] Condition: doing well without problems Attestation: Case Date: 02/17/2024 I performed this procedure without the involvement of a resident. HAYDER GRAHAM MD 02/17/2024 * Op Note - Hayder Graham MD - 02/17/2024 8:20 AM EDT [facility] Operative Note Patient Name: Karlos Garcia : [id number] MR#: [id number] Case Date: 02/17/2024 Surgeon: Surgeons and Role: * Hayder Graham MD - Primary * Neftali Menon PA - Physician Distribution Coordinator Preoperative diagnosis: CAD Postoperative diagnosis: CAD, [...] Drains: Mediastinal and Left pleural Disposition: [facility] Procedure Description: The patient was brought to [...] AM EDT Office Visit Cardiology at [address] [address] Neftali Ernandez MD [facility] [place] [address] Scheduled Orders Name Type Priority Associated Diagnoses [...] Aortic Valve Open W Cardiopulmonary Bypass Homogrf/Stent (64795) Yes 02/17/2024 7:28 AM EDT CAD Cabg, Artery-Vein, Two (56612) Yes 02/17/2024 7:28 AM EDT CAD Cabg, Arterial, Single (82622) Yes 02/17/2024 7:28 AM EDT CAD Endoscopy W/Video-Asst Vein [place], Cabg (76561) Yes 02/17/2024 7:28 AM EDT CAD POCT GLUCOSE Routine 02/17/2024 6:38 AM EDT TRANSESOPHAGEAL ECHOCARDIOGRAM IN THE OR Routine 02/17/2024 6:33 AM EDT Aortic valve stenosis, etiology of cardiac valve disease unspecified LAB SCAN 02/17/2024 12:00 AM EDT IMPLANTABLE DEVICES SCAN 02/17/2024 12:00 AM EDT documented in this encounter Results * Potassium (02/24/2024 4:42 AM EDT) Potassium 4.0 3.5 - 5.0 mmol/L [facility] Lab Hayder Graham MD CHEMISTRY ORDERABLE S [facility] [place] [address] * (ABNORMAL) Basic Metabolic Panel (non-fasting) (02/23/2024 4:24 AM EDT) Glucose 117 65 - 199 mg/dL [facility] Comment:Diabetes: >=200 mg/d L plus symptoms Blood Urea Nitrogen 18 10 - 20 mg/dL [facility] Creatinine 0.71(L) 0.80 - 1.50 mg/dL [facility] Sodium 138 135 - 145 mmol/L [facility] Potassium 4.4 3.5 - 5.0 mmol/L [facility] Comment: Please note: ??Patients with WBC >100,000 may have falsely elevated Potassium levels. ??For accurate Potassium quantification in these patients send serum separator tube (gold top) for subsequent determinations. ??Contact the Clinical Chemistry Laboratory if there are any questions. Chloride 101 98 - 107 mmol/L [facility] Carbon Dioxide 26 22 - 31 mmol/L [facility] Anion Gap 11 5 - 15 mmol/L [facility] Calcium 8.8 8.5 - 10.5 mg/dL [facility] Est Glomerular Filtration Rate 102 >=60 mL/min/1. 73 m?? [facility] [...] In Lab Romeo Carpio MD CHEMISTRY ORDERABLES [facility] [place] [address] * Potassium (02/22/2024 4:30 AM EDT) Potassium 3.5 3.5 - 5.0 mmol/L [facility] [...] Lab Hayder Graham MD CHEMISTRY ORDERABLE S [facility] [place] [address] * (ABNORMAL) Basic Metabolic Panel (non-fasting) (02/21/2024 9:45 AM EDT) Glucose 123 65 - 199 mg/dL [facility] Comment:Diabetes: >=200 mg/d L plus symptoms Blood Urea Nitrogen 22(H) 10 - 20 mg/dL [facility] Creatinine 0.78(L) 0.80 - 1.50 mg/dL [facility] Sodium 140 135 - 145 mmol/L [facility] Potassium 3.9 3.5 - 5.0 mmol/L [facility] Comment: Please note: ??Patients with WBC >100,000 may have falsely elevated Potassium levels. ??For accurate Potassium quantification in these patients send serum separator tube (gold top) for subsequent determinations. ??Contact the Clinical Chemistry Laboratory if there are any questions. Chloride 100 98 - 107 mmol/L [facility] Carbon Dioxide Not Perf 22 - 31 [facility] Comment:Add-on request. Samp le too old to perform test. Anion Gap Unable to Calculate 5 - 15 mmol/L [facility] Calcium 8.6 8.5 - 10.5 mg/dL [facility] Est Glomerular Filtration Rate 100 >=60 mL/min/1 .73 m?? [facility] Comment: [...] In Lab Romeo Carpio MD CHEMISTRY ORDERABLES [facility] [place] [address] * Lactate, whole blood, send to lab ([facility] [place] (02/21/2024 9:45 AM EDT) [facility] Lactate WB 2.0 0.5 - 2.2 mmol/L [facility] Blood 02/21/2024 9:45 AM EDT 02/21/2024 9:52 AM EDT Narrative Resulting Agency Comment Spec In Lab Hayder Graham MD CHEMISTRY ORDERABLE S Performing Organization Address [facility]/ZIP Co de Phone Number [facility] [place] [address] * (ABNORMAL) Hepatic Function Panel (02/21/2024 9:45 AM EDT) [facility] Protein, Total 5.7(L) 6.1 - 8.0 g/dL [facility] Albumin 3.3 3.2 - 5.2 g/dL [facility] Aspartate Aminotransferase 13 0 - 39 unit/L [facility] Alanine Aminotransferase 16 0 - 55 unit/L [facility] Alkaline Phosphatase 63 40 - 130 unit/L [facility] Bilirubin, Total 0.6 0.2 - 1.3 mg/dL [facility] Bilirubin, Direct 0.2 0.0 - 0.3 mg/dL [facility] Blood 02/21/2024 9:45 AM EDT 02/21/2024 9:52 AM EDT Narrative Resulting Agency Comment Spec In Lab Hayder Graham MD CHEMISTRY ORDERABLE S Performing Organization Address City/[facility]/ZIP Co de Phone Number [facility] [place] [address] * Lipase (02/21/2024 9:45 AM EDT) Lipase 56 0 - 60 unit/L [facility] Blood 02/21/2024 9:45 AM EDT 02/21/2024 9:52 AM EDT Narrative Resulting Agency Comment Spec In Lab Hayder Graham MD CHEMISTRY ORDERABLE S Performing Organization Address City/[facility]/ZIP Co de Phone Number [facility] [place] [address] * Amylase (02/21/2024 9:45 AM EDT) Amylase 69 28 - 100 unit/L [facility] Blood 02/21/2024 9:45 AM EDT 02/21/2024 9:52 AM EDT Narrative Resulting Agency Comment Spec In Lab Hayder Graham MD CHEMISTRY ORDERABLE S Performing Organization Address [facility] Co de Phone Number [facility] [place] [address] * Potassium (02/21/2024 3:08 AM EDT) [facility] Potassium 3.8 3.5 - 5.0 mmol/L [facility] [...] MD CHEMISTRY ORDERABLE S Performing Organization Address City/[facility]/ZIP Co de Phone Number [facility] [place] [address] * XR Chest PA & Lateral (Generic) (02/20/2024 10:19 AM EDT) [facility] WORKSTATION ID [id number] RAD Anatomical Region Laterality Modality Chest N/A Digital Radiogra phy Impressions 02/20/2024 1:11 PM EDT Small pleural effusions. No pneumothorax Thank you for letting us participate in the care of this patient. ??If you are a health care provider and have any questions regarding this report, please contact the number below. ??For patients who have questions please contact the health inpatient care manager rn that requested your imaging first. ? Electronically signed by: Rogerio Cruz MD, [facility] ??([phone]), at 02/20/2024 1:11 PM Narrative 02/20/2024 1:11 PM EDT EXAMINATION: XR CHEST PA AND LATERAL (GENERIC) CLINICAL HISTORY: s/p AVR/CABGx3 TECHNIQUE: PA and lateral views of the chest COMPARISON: 02/17/2024 FINDINGS: Support devices: Interval removal of [place] catheter, endotracheal tube and mediastinal chest tubes The cardiac silhouette is stable status post median sternotomy, CABG and aortic valve replacement. There are small pleural effusions. No pneumothorax. Procedure Note Rogerio Cruz MD - 02/20/2024 EXAMINATION: XR CHEST PA AND LATERAL (GENERIC) CLINICAL HISTORY: s/p AVR/CABGx3 TECHNIQUE: PA and lateral views of the chest COMPARISON: 02/17/2024 FINDINGS: Support devices: Interval removal of [place]-Kaila catheter, endotracheal tubeand mediastinal chest tubes The [...] patients who have questions please contactthe health inpatient care manager rn that requested your imaging first. Hayder Graham MD IMG DX ORDERABLES * Scan, Peripheral Blood (02/20/2024 4:23 AM EDT) Pathologist [facility] [place] Plat estimate Decreased [facility] RBC Morphology Normal [facility] Blood 02/20/2024 4:23 AM EDT 02/20/2024 4:42 AM EDT Narrative Resulting Agency Comment Spec In Lab Minnie FRENCH HEMATOLOGY CECILIO ALEMAN [facility] [place] [address] * (ABNORMAL) Differential, Automated (02/20/2024 4:23 AM EDT) [facility] Neutrophil % 81.7 % [facility] Neutrophil Absolute 10.37(H) 1.70 - 6.10 x10(3)/mc L [facility] Lymph % 7.4 % [facility] Lymphocytes Abs 0.9 0.9 - 3.2 x10(3)/mc L [facility] Monocyte % 9.7 % [facility] Monocyte Abs 1.2(H) 0.3 - 0.9 x10(3)/mc L [facility] Eos % 0.1 % [facility] Eosinophils Abs 0.0 0.0 - 0.4 x10(3)/mc L [facility] Basophil % 0.2 % [facility] Baso Absolute 0.0 0.0 - 0.1 x10(3)/mc L [facility] Immature Gran % 0.90 [...] Absolute 0.12(H) 0.00 - 0.04 x10(3)/mc L [facility] Blood 02/20/2024 4:23 AM EDT 02/20/2024 4:42 AM EDT Narrative Resulting Agency Comment Spec In Lab Minnie FRENCH HEMATOLOGY CECILIO ALEMAN [facility] [place] [address] * (ABNORMAL) Hemogram (02/20/2024 4:23 AM EDT) White Blood Cell 12.7(H) 4.0 - 9.5 x10(3)/mc L [facility] Red Blood Cell 4.26(L) 4.58 - 5.54 x10(6)/mc L [facility] Hemoglobin 12.3(L) 13.7 - 16.5 g/dL [facility] Hematocrit 37.1(L) 40.5 - 48.5 % [facility] Mean Cell Volume 87.1 82.9 - 93.1 fL [facility] Mean Cell Hemoglobin 28.9 27.5 - 32.1 pg [facility] Mean Cell Hemoglobin Concentration 33.2 32.0 - 35.7 g/dL [facility] Platelet 88(L) 145 - 357 x10(3)/mc L [facility] RDW Standard Deviation 43.5 36.0 - 45.0 fL [facility] RDW coefficient of variation 13.7 11.4 - 13.8 % [facility] Mean Platelet Volume 10.2 7.6 - 12.9 fL [facility] NRBC% auto 0.0 % [facility] NRBC Absolute 0.000 0.000 - 0.000 x10(3)/mc L [facility] Blood 02/20/2024 4:23 AM EDT 02/20/2024 4:42 AM EDT Narrative Resulting Agency Comment Spec In Lab Minnie FRENCH HEMATOLOGY CECILIO ALEMAN [facility] [place] [address] * (ABNORMAL) Basic Metabolic Panel (non-fasting) (02/20/2024 4:23 AM EDT) Glucose 113 65 - 199 mg/dL [facility] Comment:Diabetes: >=200 mg/d L plus symptoms Blood Urea Nitrogen 20 10 - 20 mg/dL [facility] Comment:result rechecked-[place] Creatinine 0.71(L) 0.80 - 1.50 mg/dL [facility] Sodium 135 135 - 145 mmol/L [facility] Potassium 3.9 3.5 - 5.0 mmol/L [facility] Comment: Please note: ??Patients with WBC >100,000 may have falsely elevated Potassium levels. ??For accurate Potassium quantification in these patients send serum separator tube (gold top) for subsequent determinations. ??Contact the Clinical Chemistry Laboratory if there are any questions. Chloride 102 98 - 107 mmol/L [facility] Carbon Dioxide 25 22 - 31 mmol/L [facility] Anion Gap 8 5 - 15 mmol/L [facility] Calcium 8.7 8.5 - 10.5 mg/dL [facility] Comment:result rechecked-[place] Est Glomerular Filtration Rate 102 >=60 mL/min/1. 73 m?? [facility] MD CHEMISTRY ORDERABLE S Performing Organization Address [facility] Co de Phone Number [facility] [place] [address] * Potassium (02/19/2024 3:57 AM EDT) Potassium 4.3 3.5 - 5.0 mmol/L [facility] MD CHEMISTRY ORDERABLE S Performing Organization Address [facility] Co de Phone Number [facility] [place] [address] * POCT Glucose (02/18/2024 8:24 AM EDT) Glucose, POC 157 65 - 199 mg/dL [facility] Comment: Supplemental ranges: <140 mg/dL before meals <180 mg/dL all other times of the day Blood 02/18/2024 8:24 AM EDT 02/18/2024 8:24 AM EDT Hayder Graham MD POINT [place] [address] * Scan, Peripheral Blood (02/18/2024 1:40 AM EDT) Pathologist [facility] [place] Plat estimate Decreased [facility] RBC Morphology Normal [facility] Blood 02/18/2024 1:40 AM EDT 02/18/2024 1:56 AM EDT Narrative Resulting Agency Comment Spec In Lab Neftali FRENCH HEMATOLOGY ORDER OLE Performing Organization Address City/[facility]/ZIP Co de Phone Number [facility] [place] [address] * (ABNORMAL) Differential, Automated (02/18/2024 1:40 AM EDT) [facility] Neutrophil % 87.1 % [facility] Neutrophil Absolute 15.03(H) 1.70 - 6.10 x10(3)/mc L [facility] Lymph % 3.0 % [facility] Lymphocytes Abs 0.5(L) 0.9 - 3.2 x10(3)/mc L [facility] Monocyte % 9.1 % [facility] Monocyte Abs 1.6(H) 0.3 - 0.9 x10(3)/mc L [facility] Eos % 0.0 % [facility] Eosinophils Abs 0.0 0.0 - 0.4 x10(3)/mc L [facility] Basophil % 0.2 % [facility] Baso Absolute 0.0 0.0 - 0.1 x10(3)/mc L [facility] Immature Gran % 0.60 % [facility] Comment: Immature granulocytes(IG's)percentage and absolute count will include metamyelocytes, myelocytes, and promyelocytes. Blood smears from CBCs yielding IG's will be scanned manually for concordance. If this scan disagrees with the automated IG or if promyelocytes are noted, a manual differential will be performed. Immature Gran Absolute 0.10(H) 0.00 - 0.04 x10(3)/ L [facility] Blood 02/18/2024 1:40 AM EDT 02/18/2024 1:56 AM EDT Narrative Resulting Agency Comment Spec In Lab Neftali FRENCH HEMATOLOGY ORDER OLE [facility] [place] [address] * (ABNORMAL) Hemogram (02/18/2024 1:40 AM EDT) White Blood Cell 17.2(H) 4.0 - 9.5 x10(3)/[facility] Red Blood Cell 4.71 4.58 - 5.54 x10(6)/[facility] Hemoglobin 13.7 13.7 - 16.5 g/dL [facility] Hematocrit 39.2(L) 40.5 - 48.5 % [facility] Mean Cell Volume 83.2 82.9 - 93.1 [facility] Mean Cell Hemoglobin 29.1 27.5 - 32.1 pg [facility] Mean Cell Hemoglobin Concentration 34.9 32.0 - 35.7 g/dL [facility] Platelet 147 145 - 357 x10(3)/mc L [facility] RDW Standard Deviation 39.9 36.0 - 45.0 [facility] RDW coefficient of variation 13.2 11.4 - 13.8 % [facility] Mean Platelet Volume 9.9 7.6 - 12.9 [facility] NRBC% auto 0.0 % [facility] NRBC Absolute 0.000 0.000 - 0.000 x10(3)/ L [facility] Blood 02/18/2024 1:40 AM EDT 02/18/2024 1:56 AM EDT Narrative Resulting Agency Comment Spec In Lab Neftali FRENCH HEMATOLOGY ORDER OLE [facility] [place] [address] * (ABNORMAL) Basic Metabolic Panel (non-fasting) (02/18/2024 1:40 AM EDT) Glucose 176 65 - 199 mg/dL [facility] Comment:Diabetes: >=200 mg/d L plus symptoms Blood Urea Nitrogen 10 10 - 20 mg/dL [facility] Creatinine 0.65(L) 0.80 - 1.50 mg/dL [facility] Sodium 135 135 - 145 mmol/L [facility] Potassium 4.2 3.5 - 5.0 mmol/L [facility] Comment: Please note: ??Patients with WBC >100,000 may have falsely elevated Potassium levels. ??For accurate Potassium quantification in these patients send serum separator tube (gold top) for subsequent determinations. ??Contact the Clinical Chemistry Laboratory if there are any questions. Chloride 106 98 - 107 mmol/L [facility] Carbon Dioxide 20(L) 22 - 31 mmol/L [facility] Anion Gap 9 5 - 15 mmol/L [facility] Calcium 7.6(L) 8.5 - 10.5 mg/dL [facility] Est Glomerular Filtration Rate 105 >=60 mL/min/1. 73 m?? [facility] [...] Lab Hayder Graham MD CHEMISTRY ORDERABLE S [facility] [place] [address] * (ABNORMAL) Troponin (02/18/2024 1:40 AM EDT) Troponin-T, High Sensitivity 342(H) <=22 ng/L [facility] Comment: This patient's troponin [...] can be found in the [facility] Test Catalog Troponin - [facility] Test Catalog Reference: [place] Definition of Myocardial Infarction. Journal of the [place] [employer] 2018;72:9081-5380 Blood 02/18/2024 1:40 AM EDT 02/18/2024 1:56 AM EDT Narrative Resulting Agency Comment Spec In Lab Hayder Graham MD CHEMISTRY ORDERABLE S [facility] [place] [address] * POCT Glucose (02/17/2024 8:13 PM EDT) Glucose, POC 142 65 - 199 mg/dL [facility] Comment: Supplemental ranges: <140 mg/dL before meals <180 mg/dL all other times of the day Blood 02/17/2024 8:13 PM EDT 02/17/2024 8:13 PM EDT Hayder Graham MD POINT OF CARE TEST ORDERABLES Performing Organization Address [facility] Co de Phone Number [facility] [place] [address] * POCT Glucose (02/17/2024 5:42 PM EDT) Glucose, POC 160 65 - 199 mg/dL [facility] Comment: Supplemental ranges: <140 mg/dL before meals <180 mg/dL all other times of the day Blood 02/17/2024 5:42 PM EDT 02/17/2024 5:42 PM EDT Hayder Graham MD POINT OF CARE TEST ORDERABLES Performing Organization Address [facility] Co de Phone Number [facility] [place] [address] * Hemoglobin (02/17/2024 5:42 PM EDT) Hemoglobin 13.7 13.7 - 16.5 g/dL [facility] Blood 02/17/2024 5:42 PM EDT 02/17/2024 6:10 PM EDT Narrative Resulting Agency Comment Spec In Lab Hayder Graham MD HEMATOLOGY ORDERABL ES Performing Organization Address City/[facility]/ZIP Co de Phone Number [facility] [place] [address] * Potassium (02/17/2024 5:42 PM EDT) Potassium 4.3 3.5 - 5.0 mmol/L [facility] Lab Hayder Graham MD CHEMISTRY ORDERABLE S [facility] [place] [address] * (ABNORMAL) BLOOD GAS 2 ARTERIAL (02/17/2024 4:18 PM EDT) pH, Arterial 7.34(L) 7.35 - 7.45 [facility] PCO2, Arterial 40 35 - 45 mmHg [facility] PO2, Arterial 78(L) 85 - 104 mmHg [facility] Bicarbonate, Arterial 20.8 20.0 - 26.0 mmol/L [facility] Base Excess, Arterial -5.1(L) -3.0 - 3.0 mmol/L [facility] Hgb Blood Gas 14.6 13.7 - 16.5 g/dL [facility] Oxyhemoglobin, Arterial 93.0(L) 94.0 - 97.0 % [facility] Carboxyhemoglob in, Arterial 0.3 % [facility] Comment: Nonsmokers: 0.5-1.5% COHB Smokers: Variable, but usually less than 10% Toxic: 20-30% COHB Lethal: Greater than 60% COHB Methemoglobin, Arterial 0.8 <=1.5 % [facility] Na Whole Blood 136 135 - 145 mmol/L [facility] K Whole Blood 4.1 3.5 - 5.0 mmol/L [facility] Comment: Please note: Patients with WBC >100,000 may have falsely elevated Potassium levels. Contact the Clinical Chemistry Laboratory if there are any questions. ICa Whole Blood 1.10(L) 1.15 - 1.33 mmol/L [facility] Comment: Note: ??Total bilirubin higher than 20 mg/dL may lead to falsely low ionized calcium. CL Whole Blood 105 98 - 107 mmol/L [facility] Gluc Whole Bld 159 65 - 199 mg/dL [facility] Comment:Diabetes: >=200 mg/d L plus symptoms. Lactate WB 1.2 0.5 - 2.2 mmol/L [facility] FIO2 Art 40 % [facility] PF Ratio Art 195 [facility] Blood 02/17/2024 4:18 PM EDT 02/17/2024 4:18 PM EDT Hayder Graham MD POINT OF CARE TEST ORDERABLES [facility] [place] [address] * XR Chest One View (02/17/2024 1:44 PM EDT) [employer] WORKSTATION ID [id number] RAD Anatomical Region Laterality Modality Chest N/A Digital Radiogra phy Impressions 02/17/2024 2:12 PM EDT 1. ??No definite pleural fluid collection or pneumothorax. 2. ??Right IJ [place]aila catheter tip terminates in a descending branch of the right pulmonary artery. Suggest catheter retraction. 3. ??Additional support lines and tubes as above. Thank you for letting us participate in the care of this patient. ??If you are a health care provider and have any questions regarding this report, please contact the number below. ??For patients who have questions please contact the health inpatient care manager rn that requested your imaging first. ? Electronically signed by: Denzel Hankins MD, [facility] ??([phone]), at 02/17/2024 2:12 PM Narrative 02/17/2024 2:12 PM EDT EXAMINATION: XR CHEST ONE VIEW CLINICAL HISTORY: s/p avr/cabg eval effusions TECHNIQUE: 1 view of the chest COMPARISON: Chest x-ray 01/09/2024, chest CT 02/03/2024 FINDINGS: ET tube tip terminates 5.2 cm above the carlos. Right IJ [place]-Kaila catheter tip terminates in a descending branch [...] cm above the carlos. Right IJ [place]-Ganzcatheter tip terminates in a descending branch of [...] collection or pneumothorax. 2. Right IJ [place]aila catheter tip terminates in a descending branch ofthe right pulmonary artery. Suggest catheter retraction. 3. Additional support lines and tubes as above. Thank you for letting us participate in the care of this patient. If youare a health care provider and have any questions regarding this report,please contact the number below. For patients who have questions please contactthe health inpatient care manager rn that requested your imaging first. Hayder Graham MD IMG DX ORDERABLES * (ABNORMAL) BLOOD GAS 2 ARTERIAL (02/17/2024 1:31 PM EDT) pH, Arterial 7.35 7.35 - 7.45 [facility] PCO2, Arterial 39 35 - 45 mmHg [facility] PO2, Arterial 320(H) 85 - 104 mmHg [facility] Bicarbonate, Arterial 21.4 20.0 - 26.0 mmol/L [facility] Base Excess, Arterial -4.2(L) -3.0 - 3.0 mmol/L [facility] Hgb Blood Gas 14.1 13.7 - 16.5 g/dL [facility] Oxyhemoglobin, Arterial 97.9(H) 94.0 - 97.0 % [facility] Carboxyhemoglob in, Arterial 0.3 % [facility] Comment: Nonsmokers: 0.5-1.5% COHB Smokers: Variable, but usually less than 10% Toxic: 20-30% COHB Lethal: Greater than 60% COHB Methemoglobin, Arterial 0.7 <=1.5 % [facility] Na Whole Blood 137 135 - 145 mmol/L [facility] K Whole Blood 4.2 3.5 - 5.0 mmol/L [facility] Comment: Please note: Patients with WBC >100,000 may have falsely elevated Potassium levels. Contact the Clinical Chemistry Laboratory if there are any questions. ICa Whole Blood 1.13(L) 1.15 - 1.33 mmol/L [facility] Comment: Note: ??Total bilirubin higher than 20 mg/dL may lead to falsely low ionized calcium. CL Whole Blood 108(H) 98 - 107 mmol/L [facility] Gluc Whole Bld 136 65 - 199 mg/dL [facility] Comment:Diabetes: >=200 mg/d L plus symptoms. Lactate WB 1.1 0.5 - 2.2 mmol/L [facility] FIO2 Art 100 % [facility] PF Ratio Art 320 [facility] Blood 02/17/2024 1:31 PM EDT 02/17/2024 1:31 PM EDT Hayder Graham MD POINT OF CARE TEST ORDERABLES Performing Organization Address City/State/[facility] Co de Phone Number [facility] [place] [address] * (ABNORMAL) Coox2 (02/17/2024 1:21 PM EDT) pO2, Coox 44 mmHg [facility] Hgb Blood Gas 13.1(L) 13.7 - 16.5 g/dL [facility] Oxyhemoglobin, Coox 76.4 % [facility] Carboxyhemoglo bin, Coox 0.3 % [facility] Comment: Nonsmokers: 0.5-1.5% COHB Smokers: Variable, but usually less than 10% Toxic: 20-30% COHB Lethal: Greater than 60% COHB Methemoglobin, Coox 0.8 <=1.5 % [facility] Source Coox Mixed Venous [facility] Blood 02/17/2024 1:21 PM EDT 02/17/2024 1:21 PM EDT Hayder Graham MD POINT OF CARE TEST ORDERABLES [facility] [place] [address] * (ABNORMAL) BLOOD GAS 2 ARTERIAL (02/17/2024 12:14 PM EDT) pH, Arterial 7.39 7.35 - 7.45 [facility] PCO2, Arterial 40 35 - 45 mmHg [facility] PO2, Arterial 338(H) 85 - 104 mmHg [facility] Bicarbonate, Arterial 23.7 20.0 - 26.0 mmol/L [facility] Base Excess, Arterial -1.3 -3.0 - 3.0 mmol/L [facility] Hgb Blood Gas 11.0(L) 13.7 - 16.5 g/dL [facility] Oxyhemoglobin, Arterial 98.8(H) 94.0 - 97.0 % [facility] Carboxyhemoglob in, Arterial 0.3 % [facility] Comment: Nonsmokers: 0.5-1.5% COHB Smokers: Variable, but usually less than 10% Toxic: 20-30% COHB Lethal: Greater than 60% COHB Methemoglobin, Arterial 0.3 <=1.5 % [facility] Na Whole Blood 135 135 - 145 mmol/L [facility] K Whole Blood 5.1(H) 3.5 - 5.0 mmol/L [facility] Comment: Please note: Patients with WBC >100,000 may have falsely elevated Potassium levels. Contact the Clinical Chemistry Laboratory if there are any questions. ICa Whole Blood 1.13(L) 1.15 - 1.33 mmol/L [facility] Comment: Note: ??Total bilirubin higher than 20 mg/dL may lead to falsely low ionized calcium. CL Whole Blood 106 98 - 107 mmol/L [facility] Gluc Whole Bld 132 65 - 199 mg/dL [facility] Comment:Diabetes: >=200 mg/d L plus symptoms. Lactate WB 1.4 0.5 - 2.2 mmol/L [facility] Blood 02/17/2024 12:1 4 PM EDT 02/17/2024 12:14 PM EDT Hayder Graham MD POINT OF CARE TEST ORDERABLES Performing Organization Address [facility] Co de Phone Number [facility] [place] [address] * (ABNORMAL) Fibrinogen (02/17/2024 12:10 PM EDT) Fibrinogen 154(L) 200 - 393 mg/dL [facility] Comment: OR Result called by ?? LOMARL OR Results read back by: ? alondra pagan at 2024-02-17 12:41:48 A fibrinogen level >100 mg/dL is adequate for hemostasis in most patients without underlying bleeding disorders. Blood 02/17/2024 12:1 0 PM EDT 02/17/2024 12:19 PM EDT Narrative Resulting Agency Comment Spec In Lab Tara York MD HEMATOLOGY ORDERABLE S Performing Organization Address [facility] Co de Phone Number [facility] [place] [address] * (ABNORMAL) Thrombin time (02/17/2024 12:10 PM EDT) Thrombin Time 18(H) 10 - 17 sec [facility] Comment: OR Result called [...] MD HEMATOLOGY ORDERABLE S Performing Organization Address [facility] Co de Phone Number [facility] [place] [address] * APTT (02/17/2024 12:10 PM EDT) Partial Thromboplastin Time 33 25 - 37 sec [facility] Comment: OR Result called [...] MD HEMATOLOGY ORDERABLE S Performing Organization Address [facility] Co de Phone Number [facility] [place] [address] * (ABNORMAL) Prothrombin Time (02/17/2024 12:10 PM EDT) Prothrombin Time 16.7(H) 9.4 - 12.5 sec [facility] Comment: OR Result called by ?? LOMARL OR Results read back by: ? alondra pagan at 2024-02-17 12:41:48 International Normalization Ratio 1.5 [facility] Comment: OR Result called [...] Lab Tara York MD HEMATOLOGY ORDERABLE S [facility] [place] [address] * (ABNORMAL) Hemogram (02/17/2024 12:10 PM EDT) White Blood Cell 11.1(H) 4.0 - 9.5 x10(3)/mc L [facility] Red Blood Cell 3.50(L) 4.58 - 5.54 x10(6)/mc L [facility] Hemoglobin 10.4(L) 13.7 - 16.5 g/dL [facility] Hematocrit 30.2(L) 40.5 - 48.5 % [facility] Comment: This result has been called to ALONDRA PAGAN by Eddie López on 02 17 2024 at 1226, and has been read back. Mean Cell Volume 86.3 82.9 - 93.1 fL [facility] Mean Cell Hemoglobin 29.7 27.5 - 32.1 pg [facility] Mean Cell Hemoglobin Concentration 34.4 32.0 - 35.7 g/dL [facility] Platelet 118(L) 145 - 357 x10(3)/mc L [facility] RDW Standard Deviation 40.2 36.0 - 45.0 fL [facility] RDW coefficient of variation 12.8 11.4 - 13.8 % [facility] Mean Platelet Volume 9.5 7.6 - 12.9 fL [facility] NRBC% auto 0.0 % [facility] NRBC Absolute 0.000 0.000 - 0.000 x10(3)/mc L [facility] Blood 02/17/2024 12:1 0 PM EDT 02/17/2024 12:19 PM EDT Narrative Resulting Agency Comment Spec In Lab Tara York MD HEMATOLOGY ORDERABLE S [facility] [place] [address] * (ABNORMAL) BLOOD GAS 2 ARTERIAL (02/17/2024 11:43 AM EDT) pH, Arterial 7.38 7.35 - 7.45 [facility] PCO2, Arterial 40 35 - 45 mmHg [facility] PO2, Arterial 304(H) 85 - 104 mmHg [facility] Bicarbonate, Arterial 23.2 20.0 - 26.0 mmol/L [facility] Base Excess, Arterial -1.9 -3.0 - 3.0 mmol/L [facility] Hgb Blood Gas 11.1(L) 13.7 - 16.5 g/dL [facility] Oxyhemoglobin, Arterial 98.6(H) 94.0 - 97.0 % [facility] Carboxyhemoglob in, Arterial 0.3 % [facility] Comment: Nonsmokers: 0.5-1.5% COHB Smokers: Variable, but usually less than 10% Toxic: 20-30% COHB Lethal: Greater than 60% COHB Methemoglobin, Arterial 0.3 <=1.5 % [facility] Na Whole Blood 133(L) 135 - 145 mmol/L [facility] K Whole Blood 6.2(Critic al) 3.5 - 5.0 mmol/L [facility] Comment: Noted by inspector optical instrument. Please note: Patients with WBC >100,000 may have falsely elevated Potassium levels. Contact the Clinical Chemistry Laboratory if there are any questions. ICa Whole Blood 0.97(L) 1.15 - 1.33 mmol/L [facility] Comment: Note: ??Total bilirubin higher than 20 mg/dL may lead to falsely low ionized calcium. CL Whole Blood 104 98 - 107 mmol/L [facility] Gluc Whole Bld 128 65 - 199 mg/dL [facility] Comment:Diabetes: >=200 mg/d L plus symptoms. Lactate WB 1.1 0.5 - 2.2 mmol/L [facility] Blood 02/17/2024 11:4 3 AM EDT 02/17/2024 11:43 AM EDT Hayder Graham MD POINT OF CARE TEST ORDERABLES [facility] [place] [address] * (ABNORMAL) BLOOD GAS 2 ARTERIAL (02/17/2024 11:08 AM EDT) pH, Arterial 7.38 7.35 - 7.45 [facility] PCO2, Arterial 38 35 - 45 mmHg [facility] PO2, Arterial 334(H) 85 - 104 mmHg [facility] Bicarbonate, Arterial 22.0 20.0 - 26.0 mmol/L [facility] Base Excess, Arterial -3.2(L) -3.0 - 3.0 mmol/L [facility] Hgb Blood Gas 10.8(L) 13.7 - 16.5 g/dL [facility] Oxyhemoglobin, Arterial 98.7(H) 94.0 - 97.0 % [facility] Carboxyhemoglob in, Arterial 0.3 % [facility] Comment: Nonsmokers: 0.5-1.5% COHB Smokers: Variable, but usually less than 10% Toxic: 20-30% COHB Lethal: Greater than 60% COHB Methemoglobin, Arterial 0.3 <=1.5 % [facility] Na Whole Blood 131(L) 135 - 145 mmol/L [facility] K Whole Blood 6.4(Critic al) 3.5 - 5.0 mmol/L [facility] Comment: Noted by inspector optical instrument. Please note: Patients with WBC >100,000 may have falsely elevated Potassium levels. Contact the Clinical Chemistry Laboratory if there are any questions. ICa Whole Blood 0.98(L) 1.15 - 1.33 mmol/L [facility] Comment: Note: ??Total bilirubin higher than 20 mg/dL may lead to falsely low ionized calcium. CL Whole Blood 104 98 - 107 mmol/L [facility] Gluc Whole Bld 127 65 - 199 mg/dL [facility] Comment:Diabetes: >=200 mg/d L plus symptoms. Lactate WB 1.0 0.5 - 2.2 mmol/L [facility] Blood 02/17/2024 11:0 8 AM EDT 02/17/2024 11:08 AM EDT Hayder Graham MD POINT OF CARE TEST ORDERABLES Performing Organization Address [facility] Co de Phone Number [facility] [place] [address] * (ABNORMAL) Hemoglobin and Hematocrit, blood (02/17/2024 11:04 AM EDT) Hemoglobin 9.6(L) 13.7 - 16.5 g/dL [facility] Hematocrit 28.0(L) 40.5 - 48.5 % [facility] Comment: This result has been called to ALONDRA PAGAN by Eddie López on 02 17 2024 at 1120, and has been read back. Blood 02/17/2024 11:0 4 AM EDT 02/17/2024 11:12 AM EDT Narrative Resulting Agency Comment Spec In Lab Hayder Graham MD HEMATOLOGY ORDERABL ES Performing Organization Address [facility]/ZIP Co de Phone Number [facility] [place] [address] * (ABNORMAL) Platelet count (02/17/2024 11:04 AM EDT) Platelet 106(L) 145 - 357 x10(3)/mc L [facility] Immature Plt % 1.6 0.0 - 7.4 % [facility] Comment: Limitation of the Immature Platelet Fraction (IPF)-May be less reliable when the platelet count is less than 60w660/uL due to statistical imprecision. The IPF value [...] in a decreased state of production. References: [employer] The Clinical Value of the Immature Platelet Fraction (IPF) in Cell Recovery Document Number [id number] 03/2011 [employer] The Role of the Immature Platelet Fraction (IPF) in the Differential Diagnosis of Thrombocytopenia, Document [id number] V002/15/14 Blood 02/17/2024 11:0 4 AM EDT 02/17/2024 11:12 AM EDT Narrative Resulting Agency Comment Spec In Lab Hayder Graham MD HEMATOLOGY ORDERABL ES Performing Organization Address City/State/[facility] Co de Phone Number [facility] [place] [address] * (ABNORMAL) Fibrinogen (02/17/2024 11:04 AM EDT) Fibrinogen 149(L) 200 - 393 mg/dL [facility] Comment: OR Result called by ?? SALVLT OR Results read back by: ? Alondra Pagan at 2024-02-17 11:30:47 A fibrinogen level >100 mg/dL is adequate for hemostasis in most patients without underlying bleeding disorders. Blood 02/17/2024 11:0 4 AM EDT 02/17/2024 11:12 AM EDT Narrative Resulting Agency Comment Spec In Lab Hayder Graham MD HEMATOLOGY ORDERABL ES [facility] [place] [address] * (ABNORMAL) BLOOD GAS 2 ARTERIAL (02/17/2024 10:41 AM EDT) pH, Arterial 7.37 7.35 - 7.45 [facility] PCO2, Arterial 44 35 - 45 mmHg [facility] PO2, Arterial 335(H) 85 - 104 mmHg [facility] Bicarbonate, Arterial 24.9 20.0 - 26.0 mmol/L [facility] Base Excess, Arterial -0.4 -3.0 - 3.0 mmol/L [facility] Hgb Blood Gas 11.5(L) 13.7 - 16.5 g/dL [facility] Oxyhemoglobin, Arterial 98.9(H) 94.0 - 97.0 % [facility] Carboxyhemoglob in, Arterial 0.1 % [facility] Comment: Nonsmokers: 0.5-1.5% COHB Smokers: Variable, but usually less than 10% Toxic: 20-30% COHB Lethal: Greater than 60% COHB Methemoglobin, Arterial 0.3 <=1.5 % [facility] Na Whole Blood 132(L) 135 - 145 mmol/L [facility] K Whole Blood 5.9(H) 3.5 - 5.0 mmol/L [facility] Comment: Please note: Patients with WBC >100,000 may have falsely elevated Potassium levels. Contact the Clinical Chemistry Laboratory if there are any questions. ICa Whole Blood 1.02(L) 1.15 - 1.33 mmol/L [facility] Comment: Note: ??Total bilirubin higher than 20 mg/dL may lead to falsely low ionized calcium. CL Whole Blood 104 98 - 107 mmol/L [facility] Gluc Whole Bld 129 65 - 199 mg/dL [facility] Comment:Diabetes: >=200 mg/d L plus symptoms. Lactate WB 1.1 0.5 - 2.2 mmol/L [facility] Blood 02/17/2024 10:4 1 AM EDT 02/17/2024 10:41 AM EDT Hayder Graham MD POINT OF CARE TEST ORDERABLES [facility] [place] [address] * (ABNORMAL) BLOOD GAS 2 ARTERIAL (02/17/2024 10:06 AM EDT) pH, Arterial 7.38 7.35 - 7.45 [facility] PCO2, Arterial 42 35 - 45 mmHg [facility] PO2, Arterial 329(H) 85 - 104 mmHg [facility] Bicarbonate, Arterial 24.7 20.0 - 26.0 mmol/L [facility] Base Excess, Arterial -0.3 -3.0 - 3.0 mmol/L [facility] Hgb Blood Gas 11.0(L) 13.7 - 16.5 g/dL [facility] Oxyhemoglobin, Arterial 99.0(H) 94.0 - 97.0 % [facility] Carboxyhemoglob in, Arterial 0.3 % [facility] Comment: Nonsmokers: 0.5-1.5% COHB Smokers: Variable, but usually less than 10% Toxic: 20-30% COHB Lethal: Greater than 60% COHB Methemoglobin, Arterial 0.3 <=1.5 % [facility] Na Whole Blood 132(L) 135 - 145 mmol/L [facility] K Whole Blood 6.0(H) 3.5 - 5.0 mmol/L [facility] Comment: Please note: Patients with WBC >100,000 may have falsely elevated Potassium levels. Contact the Clinical Chemistry Laboratory if there are any questions. ICa Whole Blood 0.97(L) 1.15 - 1.33 mmol/L [facility] Comment: Note: ??Total bilirubin higher than 20 mg/dL may lead to falsely low ionized calcium. CL Whole Blood 102 98 - 107 mmol/L [facility] Gluc Whole Bld 123 65 - 199 mg/dL [facility] Comment:Diabetes: >=200 mg/d L plus symptoms. Lactate WB 1.1 0.5 - 2.2 mmol/L [facility] Blood 02/17/2024 10:0 6 AM EDT 02/17/2024 10:06 AM EDT Hayder Graham MD POINT OF CARE TEST ORDERABLES [facility] [place] [id number] * Surgical Pathology Report (02/17/2024 10:01 AM EDT) Final Diagnosis [id number] ? Location: [facility]; [facility]; The signing pathologist has (i) examined the relevant preparation(s) for the specimen(s) and (ii) rendered or confirmed the diagnosis(es). . ?Surgical Pathology DIAGNOSIS Aortic valve leaflets, excision: Valve leaflets with myxoid degeneration, nodular fibrosis and dystrophic calcifications. Electronically signed by: ?Livier Montoya MD Verified: ??02/24/2024 13:49 ??Pathologist Performed at: ??-[facility], [place] [address] Checkout Supervisor: Job Brewer MD, FCAP, ??IA Certificate: [id number] SPECIMEN(S) SUBMITTED A - Aortic Valve Leaflets, [...] Sections Processing Blocks submitted for decalcification: A1. Freight And Passenger Agent sections in 1 cassette labeled A1. ??ajw 02/24/2024 1:49 PM EDT [facility] AORTIC STRUCTURE / Unknown 02/17/2024 10:01 AM EDT 02/17/2024 10:01 AM EDT Hayder Graham MD PATHOLOGY/CYTOLOGY ORDERABLES [facility] [place] [address] * Specimen to Pathology (02/17/2024 10:01 AM EDT) AP Specimen 02/17/2024 10:0 1 AM EDT 02/17/2024 10:01 AM EDT Narrative [facility] - 02/17/2024 10:01 AM EDT Specimen requisition ordered. ??Separate Pathology report to follow Hayder Graham MD PATHOLOGY/CYTOLOGY ORDERABLES [facility] [place] [address] * (ABNORMAL) BLOOD GAS 2 ARTERIAL (02/17/2024 9:35 AM EDT) pH, Arterial 7.33(L) 7.35 - 7.45 [facility] PCO2, Arterial 35 35 - 45 mmHg [facility] PO2, Arterial 318(H) 85 - 104 mmHg [facility] Bicarbonate, Arterial 17.9(L) 20.0 - 26.0 mmol/L [facility] Base Excess, Arterial -8.0(L) -3.0 - 3.0 mmol/L [facility] Hgb Blood Gas 11.0(L) 13.7 - 16.5 g/dL [facility] Oxyhemoglobin, Arterial 98.8(H) 94.0 - 97.0 % [facility] Carboxyhemoglob in, Arterial 0.3 % [facility] Comment: Nonsmokers: 0.5-1.5% COHB Smokers: Variable, but usually less than 10% Toxic: 20-30% COHB Lethal: Greater than 60% COHB Methemoglobin, Arterial 0.3 <=1.5 % [facility] Na Whole Blood 131(L) 135 - 145 mmol/L [facility] K Whole Blood 5.8(H) 3.5 - 5.0 mmol/L [facility] Comment: Please note: Patients with WBC >100,000 may have falsely elevated Potassium levels. Contact the Clinical Chemistry Laboratory if there are any questions. ICa Whole Blood 0.98(L) 1.15 - 1.33 mmol/L [facility] Comment: Note: ??Total bilirubin higher than 20 mg/dL may lead to falsely low ionized calcium. CL Whole Blood 101 98 - 107 mmol/L [facility] Gluc Whole Bld 122 65 - 199 mg/dL [facility] Comment:Diabetes: >=200 mg/d L plus symptoms. Lactate WB 0.8 0.5 - 2.2 mmol/L [facility] Blood 02/17/2024 9:35 AM EDT 02/17/2024 9:35 AM EDT Hayder Graham MD POINT OF CARE TEST ORDERABLES [facility] [place] [address] * (ABNORMAL) BLOOD GAS 2 VENOUS (02/17/2024 9:34 AM EDT) pH, Venous 7.22(Criti marquez) 7.32 - 7.42 [facility] Comment:Noted by inspector optical instrument. PCO2, Venous 43 41 - 51 mmHg [facility] Comment:Noted by inspector optical instrument. PO2, Venous 57(H) 25 - 40 mmHg [facility] Comment:Noted by inspector optical instrument. Bicarbonate, Venous 17.1 mmol/L [facility] Comment:Noted by inspector optical instrument. Base Excess, Venous -10.6 mmol/L [facility] Comment:Noted by inspector optical instrument. Hgb Blood Gas 11.2(L) 13.7 - 16.5 g/dL [facility] Comment:Noted by inspector optical instrument. Oxyhemoglobin, Venous 86.5 % [facility] Comment:Noted by inspector optical instrument. Carboxyhemoglob in, Venous 0.3 % [facility] Comment: Noted by inspector optical instrument. Nonsmokers: 0.5-1.5% COHB Smokers: Variable, but usually less than 10% Toxic: 20-30% COHB Lethal: Greater than 60% COHB Methemoglobin, Venous 0.0 <=1.5 % [facility] Comment:Noted by inspector optical instrument. Na Whole Blood 156(H) 135 - 145 mmol/L [facility] Comment:Noted by inspector optical instrument. K Whole Blood 5.5(H) 3.5 - 5.0 mmol/L [facility] Comment: Noted by inspector optical instrument. Please note: Patients with WBC >100,000 may have falsely elevated Potassium levels. Contact the Clinical Chemistry Laboratory if there are any questions. ICa Whole Blood 1.03(L) 1.15 - 1.33 mmol/L [facility] Comment: Noted by inspector optical instrument. Note: ??Total bilirubin higher than 20 mg/dL may lead to falsely low ionized calcium. CL Whole Blood 100 98 - 107 mmol/L [facility] Comment:Noted by inspector optical instrument. Gluc Whole Bld 132 65 - 199 mg/dL [facility] Comment: Noted by inspector optical instrument. Diabetes: >=200 mg/dL plus symptoms Lactate WB 1.0 0.5 - 2.2 mmol/L [facility] Comment:Noted by inspector optical instrument. Blood Gas Source Venous [facility] Blood 02/17/2024 9:34 AM EDT 02/17/2024 9:34 AM EDT Hayder Graham MD POINT OF CARE TEST ORDERABLES [facility] [place] [address] * (ABNORMAL) BLOOD GAS 2 ARTERIAL (02/17/2024 8:07 AM EDT) pH, Arterial 7.43 7.35 - 7.45 [facility] PCO2, Arterial 34(L) 35 - 45 mmHg [facility] PO2, Arterial 581(H) 85 - 104 mmHg [facility] Bicarbonate, Arterial 21.7 20.0 - 26.0 mmol/L [facility] Base Excess, Arterial -2.6 -3.0 - 3.0 mmol/L [facility] Hgb Blood Gas 14.5 13.7 - 16.5 g/dL [facility] Oxyhemoglobin, Arterial 99.0(H) 94.0 - 97.0 % [facility] Carboxyhemoglob in, Arterial 0.4 % [facility] Comment: Nonsmokers: 0.5-1.5% COHB Smokers: Variable, but usually less than 10% Toxic: 20-30% COHB Lethal: Greater than 60% COHB Methemoglobin, Arterial 0.3 <=1.5 % [facility] Na Whole Blood 139 135 - 145 mmol/L [facility] K Whole Blood 4.0 3.5 - 5.0 mmol/L [facility] Comment: Please note: Patients with WBC >100,000 may have falsely elevated Potassium levels. Contact the Clinical Chemistry Laboratory if there are any questions. ICa Whole Blood 1.09(L) 1.15 - 1.33 mmol/L [facility] Comment: Note: ??Total bilirubin higher than 20 mg/dL may lead to falsely low ionized calcium. CL Whole Blood 106 98 - 107 mmol/L [facility] Gluc Whole Bld 100 65 - 199 mg/dL [facility] Comment:Diabetes: >=200 mg/d L plus symptoms. Lactate WB 1.3 0.5 - 2.2 mmol/L [facility] Blood 02/17/2024 8:07 AM EDT 02/17/2024 8:07 AM EDT Hayder Graham MD POINT OF CARE TEST ORDERABLES Performing Organization Address [facility] Co de Phone Number [facility] [place] [address] * POCT Glucose (02/17/2024 6:38 AM EDT) Glucose, POC 98 65 - 199 mg/dL [facility] Comment: Supplemental ranges: <140 mg/dL before meals <180 mg/dL all other times of the day Blood 02/17/2024 6:38 AM EDT 02/17/2024 6:38 AM EDT Hayder Graham MD POINT OF CARE TEST ORDERABLES Performing Organization Address [facility] Co de Phone Number [facility] [place] [address] * Transesophageal Echo/OR (02/17/2024 6:33 AM EDT) [...] [facility] [...] Routine documented in this encounter Care Teams Stone Gang Sawyer Relationship Specialty Start Date End Date Aparna Jordan APRN PCP - General Family Medicine 10/21/23 documented as of this encounter
--- OUTSIDE RECORDS SUMMARY | 2024-05-27 08:19 | XMS_ITS | Encounter Summary ---
Author Organization [facility] Address [facility] [place] [address] Care Team Providers Care Liability Claims Adjuster Name Role Phone Vanessa Christian MAURI Primary Care Provider Encounter Details Date Type Department Care Team (Latest Contact Info) Description 01/09/2024 3:02 PM EDT - 01/09/2024 11:59 PM EDT Hospital Encounter XRay at [address] [place] [address] Zak Farmer MD [facility] [place] [address] Nonrheumatic aortic valve stenosis Discharge Disposition: Home Social History Tobacco Use Types Packs/Day Years Used Date Smoking Tobacco: Former Cigarettes Smokeless Tobacco: Never Comments:Quit 15 + years ago Alcohol Use Standard Drinks/Week Comments Yes 0 (1 standard drink = 0.6 oz pur e alcohol) rare [facility] Inpatient Questions Answer Date Recorded Prevent Contact [...] Place 1 drop into both eyes daily. dorzolamide (Trusopt) 2 % Drops 3 times [...] AM EDT Office Visit Cardiology at [address] [place] [address] Neftali Ernandez MD [facility] [place] [address] documented as of this encounter Procedures Procedure [...] questions please contact the health wound care specialist that requested your imaging first. [...] have questions please contactthe health wound care specialist that requested your imaging first. Zak Farmer MD IMG DX ORDERABLES documented in this encounter Visit Diagnoses Diagnosis Nonrheumatic aortic valve stenosis Aortic valve disorders documented in this encounter Care Teams Liability Claims Adjuster Relationship Specialty Start Date End Date Vanessa Christian APRN PCP - General Family Medicine 10/21/23 documented as of this encounter
--- OUTSIDE RECORDS SUMMARY | 2024-05-27 08:19 | XMS_ITS | Encounter Summary ---
Author Organization [facility] [place] [address] Care Team Providers Care Natural Resources Manager Name Role Phone Vanessa Christian APRN Primary Care Provider [phone] Encounter Details Date Type Department Care Team (Late st Contact Info) Description 10/21/2023 Abstract Cardiology at [address] [id number] Adam Mayes RN Social History Tobacco Use [...] AM EDT Office Visit Cardiology at [address] [place] [address] Neftali Ernandez MD [facility] [place] [address] documented as of this encounter Visit Diagnoses Not on filedocumented in this encounter Care Teams Natural Resources Manager Relationship Specialty Start Date End Date Vanessa Christian APRN PCP - General Family Medicine 10/21/23 documented as of this encounter
--- OUTSIDE RECORDS SUMMARY | 2024-05-27 08:19 | XMS_ITS | Encounter Summary ---
Author Organization [facility]ly [facility] Address [facility] [place] [address] Care Team Providers Care Insurance Professional Name Role Phone Vanessa Christian APRN Primary Care Provider [phone] Encounter Details Date Type Department Care Team [...] AM EDT Office Visit Cardiology at [address] [place] [address] Neftali Ernandez MD [facility] [place] [address] documented as of this encounter Visit Diagnoses Not on filedocumented in this encounter Care Teams Insurance Professional Relationship Specialty Start Date End Date Vanessa Christian APRN PCP - General Family Medicine 10/21/23 documented as of this encounter
--- OUTSIDE RECORDS SUMMARY | 2024-05-27 08:19 | XMS_ITS | Encounter Summary ---
Author Organization [facility] [place] [address] Care Team Providers Care Tavern Operator Name Role Phone Vanessa Christian [facility] LVN Primary Care Provider [phone] Reason for Referral * Diagnostic Test (Routine) - Closed Specialty Diagnoses / Procedures Referred By Contac t Referred To Contact Radiology Diagnoses Nonrheumatic aortic valve stenosis Procedures CT Chest wo Contrast (Generic) Louisa Reid PA [facility] [place] [address] [facility] [place] [address] Referral ID Status Reason Start Date Expiration Date V isits Requested Visits Authorized [id number] Closed Specialty Service Requested 01/10/2024 07/11/2025 1 1 Encounter Details Date Type Department Care Team (Late st Contact Info) Description 01/09/2024 Orders [place] [address] Zak Farmer MD [facility] [place] [address] Nonrheumatic aortic valve stenosis Social History Tobacco [...] AM EDT Office Visit Cardiology at [address] [place] [address] Neftali Ernandez MD [facility] [place] [address] documented as of this encounter Results * CT Chest wo Contrast (Generic) (02/03/2024 7:44 AM EDT) [employer] WORKSTATION ID [id number] RAD Anatomical Region Laterality Modality Chest Computed [...] questions please contact the health acute care nurse that requested your imaging first. [...] nodule along the minor fissure (series 302 [id number]) and a 8 mm right lower lobe [...] have questions please contactthe health acute care nurse that requested your imaging first. Zak Farmer MD IMG CT ORDERABLES documented in this encounter Visit Diagnoses Diagnosis Nonrheumatic aortic valve stenosis Aortic valve disorders Nonrheumatic aortic valve stenosis Aortic valve disorders documented in this encounter Care Teams Tavern Operator Relationship Specialty Start Date End Date Vanessa Christian APRN PCP - General Family Medicine 10/21/23 documented as of this encounter
--- OUTSIDE RECORDS SUMMARY | 2024-05-27 08:19 | XMS_ITS | Encounter Summary ---
Author Organization [facility] [place] [address] Care Team Providers Care Lumber Press Operator Name Role Phone Vanessa Christian Lane DOTSON Primary Care Provider [phone] Encounter Details Date Type Department Care Team (Late st Contact Info) Description 01/09/2024 2:30 PM EDT Clinical Support Same Day at [facility] [place] [phone] Social History Tobacco Use Types Packs/Day Years [...] you tube link for a video about [facility] cardiac surgery. Instructed to [...] type and screen performed while in the [facility]. Sent to Radiology for chest x-ray. Special medication instructions: None Procedure date: not booked. Darian documented in this encounter Plan of Treatment Upcoming Encounters Date Type Department Care Team (Late st Contact Info) Description 05/27/2024 11:00 AM EDT Office Visit Cardiology at [address] [place] [phone] Neftali Ernandez MD [facility] [place] [address] documented as of this encounter Visit Diagnoses Not on filedocumented in this encounter Care Teams Lumber Press Operator Relationship Specialty Start Date End Date Vanessa Christian APRN PCP - General Family Medicine 10/21/23 documented as of this encounter
--- OUTSIDE RECORDS SUMMARY | 2024-05-27 08:19 | XMS_ITS | Encounter Summary ---
Author Organization [facility] [place] [address] Care Team Providers Care Preforming Machine Operator Name Role Phone Vanessa Christian MAURI Primary Care Provider [phone] Reason for Visit * Auth/Cert (Routine) Specialty [...] MD [facility] [place] [address] [facility] Referral ID Status Reason Start Date Expiration Date Visits Re quested Visits Authorized [id number] 1 1 Encounter Details Date Type Department Care Team (Latest Contact Info) Description 02/03/2024 8:06 AM EDT - 02/03/2024 2:54 PM EDT Hospital Encounter [place] [address] Rima Dickinson MD [facility] [place] [address] Screening for cardiovascular condition; Aortic valve stenosis, [...] lbs Follow-up Visits Follow up with your commission sales associate in 2-4 weeks Access Site 'Black and Blue' and tenderness is expected during the first week Call if you noted a mass (lump) greater than the size of a ellis Call Office with any Questions and if you have any of the following Clarence Lane M.D Interventional Digital Printer Screen Repairer Crusher #: [phone] * Attachments The following attachments cannot be sent through Care Everywhere. * CAD (Coronary Artery Disease): General Info (Faroese) * Coronary Angiogram: Post-op (Faroese) documented in this encounter Medications at Time [...] Lane MD - 02/03/2024 11:48 AM EDT [facility] Interventional Cardiology Adult Pre-Procedure H&P Update: Cardiac Catheterization Karlos Anthony [id number] 1960 Chief Complaint: Aortic stenosis HPI: Mr. [...] to this, which is inthe chart Clarence aLne MD Interventional Digital Printer 02/03/24 11:48 AM documented in this encounter Miscellaneous Notes * Brief Op Note - Clarence Lane MD - 02/03/2024 12:51 PM EDT Preliminary Cardiac Catheterization Procedure Note: Patient Name: Karlos Anthony : [id number] MR#: [id number] Case Date: 02/03/2024 Screen Repairer Crusher: Surgeon(s) and Role: * Saira Lua MD [...] AM EDT Office Visit Cardiology at [address] [place] [address] Neftali Ernandez MD [facility] [place] [address] Scheduled Orders Name Type Priority Associated Diagnoses [...] ? Procedure Date: 02/03/2024 ? A #: [id number] ? Primary Physician: Saira Lua ? Case #: [id number] ? File Name: [id number] ? Catheterization Order Number: [id number] ? [facility] ? Final Report [place], [place] ? Patient Name: ? Karlos Patenaude ? ID#: ?[id number] ? : ?1960 ? Procedure Date: ? [...] Karlos Anthony Procedure Date: 02/03/2024 A #: [id number] Primary Physician: Saira Lua Case #: [id number] File Name: [id number] Catheterization Order Number: [id number] [facility] FinalReport [place], [place] Patient Name: Karlos Anthony ID#:[id number] :1960 Procedure Date: February 03, 2024 Case [...] was designated as ASA Class III. The [facility] clinical frailty scale is 3: [...] (Bezet) 372 ms MUSE SYSTEM Calculated P [place] 59 degrees MUSE SYSTEM Calculated R [place] 34 degrees MUSE SYSTEM Calculated T [place] 63 degrees MUSE SYSTEM INTERPRETATION Sinus bradycardia [...] MD) documented in this encounter Care Teams Preforming Machine Operator Relationship Specialty Start Date End Date Vanessa Christian APRN PCP - General Family Medicine 10/21/23 documented as of this encounter
--- OUTSIDE RECORDS SUMMARY | 2024-05-27 08:19 | XMS_ITS | Encounter Summary ---
Author Organization [facility] [place] [address] Care Team Providers Care Archeologist Name Role Phone Vanessa Christian MAURI Primary Care Provider [phone] Encounter Details Date Type Department Care Team (Latest Contact Info) Description 01/09/2024 3:00 PM EDT Laboratory [place] [phone] Nonrheumatic aortic valve stenosis Social History Tobacco [...] AM EDT Office Visit Cardiology at [address] [phone] Neftali Ernandez MD [facility] [place] [address] documented as of this encounter Procedures Procedure Name Priority Date/Time Associated Diagnosis Comments ABORH RECHECK STATUS Routine 01/09/2024 2:58 PM EDT HEMOGRAM Routine 01/09/2024 2:58 PM EDT Nonrheumatic aortic valve stenosis DIFFERENTIAL, AUTOMATED Routine 01/09/2024 2:58 PM EDT Nonrheumatic aortic valve stenosis TYPE AND SCREEN, SDP (FUTURE SURGERY, [facility] ONLY) Routine 01/09/2024 2:58 [...] LAB CECILIO ALEMAN [facility] [place] [address] * Differential, Automated (01/09/2024 2:58 PM EDT) Neutrophil % 70.5 % [facility] Neutrophil Absolute 4.34 1.70 - 6.10 x10(3)/[facility] Lymph % 18.9 % [facility] Lymphocytes Abs 1.2 0.9 - 3.2 x10(3)/[facility] Monocyte % 8.0 % [facility] Monocyte Abs 0.5 0.3 - 0.9 x10(3)/[facility] Eos % 1.6 % [facility] Eosinophils Abs 0.1 0.0 - 0.4 x10(3)/[facility] Basophil % 0.5 % [facility] Baso Absolute 0.0 0.0 - 0.1 x10(3)/[facility] Immature Gran % 0.50 % [facility] Comment: Immature granulocytes(IG's)percentage and absolute count will include metamyelocytes, myelocytes, and promyelocytes. Blood smears from CBCs yielding IG's will be scanned manually for concordance. If this scan disagrees with the automated IG or if promyelocytes are noted, a manual differential will be performed. Immature Gran Absolute 0.03 0.00 - 0.04 x10(3)/[facility] Blood 01/09/2024 2:58 PM EDT 01/09/2024 3:03 PM EDT Narrative Resulting Agency Comment Spec In Lab Zak Farmer MD HEMATOLOGY ORDERABL ES [facility] [place] [address] * Hemogram (01/09/2024 2:58 PM EDT) White Blood Cell 6.2 4.0 - 9.5 x10(3)/[facility] Red Blood Cell 5.53 4.58 - 5.54 x10(6)/[facility] Hemoglobin 16.1 13.7 - 16.5 g/dL [facility] Hematocrit 46.9 40.5 - 48.5 % [facility] Mean Cell Volume 84.8 82.9 - 93.1 fL [facility] Mean Cell Hemoglobin 29.1 27.5 - 32.1 pg [facility] Mean Cell Hemoglobin Concentration 34.3 32.0 - 35.7 g/dL [facility] Platelet 187 145 - 357 x10(3)/[facility] RDW Standard Deviation 39.2 36.0 - 45.0 fL [facility] RDW coefficient of variation 12.6 11.4 - 13.8 % [facility] Mean Platelet Volume 9.5 7.6 - 12.9 fL [facility] NRBC% auto 0.0 % [facility] NRBC Absolute 0.000 0.000 - 0.000 x10(3)/[facility] Blood 01/09/2024 2:58 PM EDT 01/09/2024 3:03 PM EDT Narrative Resulting Agency Comment Spec In Lab Zak Farmer MD HEMATOLOGY ORDERABL ES [facility] [place] [address] * Basic Metabolic Panel (non-fasting) (01/09/2024 2:58 [...] CHEMISTRY ORDERABLE S [facility] [place] [address] * Hepatic Function Panel (01/09/2024 2:58 PM [...] CHEMISTRY ORDERABLE S Performing Organization Address [facility] Co de Phone Number [facility] [place] [address] * Prothrombin Time (01/09/2024 2:58 PM EDT) [...] ORDERABL ES Performing Organization Address [facility] Co de Phone Number [facility] [place] [address] * Type and Screen Future Surgery, [facility] ONLY) (01/09/2024 2:58 PM EDT) Pathologist [facility] ABORH Type O NEGATIVE [facility] Patient BB History Not Found [facility] [...] de Phone Number [facility] [place] [address] documented in this encounter Visit Diagnoses Diagnosis Nonrheumatic aortic valve stenosis Aortic valve disorders documented in this encounter Care Teams Archeologist Relationship Specialty Start Date End Date Vanessa Christian APRN PCP - General Family Medicine 10/21/23 documented as of this encounter
--- OUTSIDE RECORDS SUMMARY | 2024-05-27 08:19 | XMS_ITS | Encounter Summary ---
Author Organization [facility] [place] [address] Care Team Providers Care Jail Guard Name Role Phone Vanessa Christian Lane DOTSON Primary Care Provider [phone] Reason for Referral * Diagnostic Test (Routine) - Closed Specialty Diagnoses / Procedures Referred By Contac t Referred To Contact Radiology Diagnoses Nonrheumatic aortic valve stenosis Procedures CT Chest wo Contrast (Generic) Louisa Cho PA [facility] [place] [address] [facility] [place] [address] Referral ID Status Reason Start Date Expiration Date V isits Requested Visits Authorized [id number] Closed Specialty Service Requested 01/10/2024 07/11/2025 1 1 Reason for Visit * Diagnostic Test (Routine) - Closed Specialty Diagnoses / Procedures Referred By Contac t Referred To Contact Radiology Diagnoses Nonrheumatic aortic valve stenosis Procedures CT Chest wo Contrast (Generic) Louisa Cho PA [facility] [place] [address] [facility] [place] [address] Referral ID Status Reason Start Date Expiration Date V isits Requested Visits Authorized [id number] Closed Specialty Service Requested 01/10/2024 07/11/2025 1 1 Encounter Details Date Type Department Care Team (Latest Contact Info) Description 02/03/2024 7:36 AM EDT - 02/03/2024 8:05 AM EDT Hospital Encounter CT [facility] [place] [place] [address] Zak Farmer MD [facility] [place] [address] Nonrheumatic aortic valve stenosis Discharge Disposition: Home Social History Tobacco Use Types Packs/Day Years Used Date Smoking Tobacco: Former Cigarettes Smokeless Tobacco: Never Comments:Quit 15 + years ago Alcohol Use Standard Drinks/Week Comments Yes 0 (1 standard drink = 0.6 oz pur e alcohol) rare [facility] Inpatient Questions Answer Date Recorded Does [...] AM EDT Office Visit Cardiology at [address] [place] [address] Neftali Ernandez MD [facility] [place] [address] documented as of this encounter Procedures Procedure Name Priority Date/Time Associated Diagnosis Comments CT CHEST WO CONTRAST (GENERIC) Routine 02/03/2024 7:44 AM EDT Nonrheumatic aortic valve stenosis documented in this encounter Results * CT Chest wo Contrast (Generic) (02/03/2024 7:44 AM EDT) [employer] WORKSTATION ID [id number] RAD Anatomical Region Laterality Modality Chest Computed [...] who have questions please contact the health reservoir caretaker that requested your imaging first. ? Narrative [...] nodule along the minor fissure (series 302 [id number]) and a 8 mm right lower lobe [...] patients who have questions please contactthe health reservoir caretaker that requested your imaging first. Zak Farmer MD IMG CT ORDERABLES documented in this encounter Visit Diagnoses Diagnosis Nonrheumatic aortic valve stenosis Aortic valve disorders documented in this encounter Care Teams Jail Guard Relationship Specialty Start Date End Date Vanessa Christian APRN PCP - General Family Medicine 10/21/23 documented as of this encounter
--- OUTSIDE RECORDS SUMMARY | 2024-05-27 08:19 | XMS_ITS | Encounter Summary ---
Author Organization [facility] Address [facility] [place] [address] Care Team Providers Care District Branch Manager Name Role Phone Vanessa Christian MAURI Primary Care Provider [phone] Encounter Details Date Type Department Care Team (Late st Contact Info) Description 02/14/2024 Orders [place] [phone] Zak Farmer MD [facility] [place] [address] Coronary artery disease, unspecified vessel or lesion type, unspecified whether angina present, unspecified whether apache or transplanted heart (Primary Dx) Social History [...] AM EDT Office Visit Cardiology at [address] [place] [phone] Neftali Ernandez MD [facility] [place] [address] documented as of this encounter Results * EKG 12 Lead (03/12/2024 2:35 PM EDT) Ventricular rate 59 BPM MUSE SYSTEM Atrial Rate 59 BPM MUSE SYSTEM P-R Interval 190 ms MUSE SYSTEM QRS Duration 92 ms MUSE SYSTEM Q-T Interval 406 ms MUSE SYSTEM QTC Calculated (Bezet) 401 ms MUSE SYSTEM Calculated P [place] -12 degrees MUSE SYSTEM Calculated R [place] 24 degrees MUSE SYSTEM Calculated T [place] 74 degrees MUSE SYSTEM INTERPRETATION Sinus bradycardia T wave abnormality, consider anterior ischemia Abnormal ECG When compared with ECG of 17-FEB-2024 13:24, NV interval has decreased T wave inversion now evident in Anterior leads Confirmed by Paul Guzman ([id number]) on 03/15/2024 8:36:23 AM MUSE SYSTEM 03/12/2024 2:35 PM EDT 03/15/2024 8:36 AM EDT aZk Farmer MD ECG ORDERABLES MUSE SYSTEM * XR Chest PA & Lateral (Generic) (03/12/2024 1:42 PM EDT) WORKSTATION ID [id number] RAD Anatomical Region Laterality Modality Chest N/A [...] questions please contact the health career development manager that requested your imaging first. ? 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 Electronically signed by: Augie Sanchez MD, [facility]([phone]), at 03/13/2024 8:28 AM Zak Farmer MD IMG DX ORDERABLES documented in this encounter Visit Diagnoses Diagnosis Coronary artery disease, unspecified vessel or lesion type, unspecified whether angina present, unspecified whether apache or transplanted heart- Primary Coronary artery disease, unspecified vessel or lesion type, unspecified whether angina present, unspecified whether apache or transplanted heart documented in this encounter Care Teams District Branch Manager Relationship Specialty Start Date End Date Vanessa Christian APRN PCP - General Family Medicine 10/21/23 documented as of this encounter
--- OUTSIDE RECORDS SUMMARY | 2024-05-27 08:19 | XMS_ITS | Encounter Summary ---
Author Organization [facility] [place] [address] Care Team Providers Care Front Desk Admin Name Role Phone Vanessa Christian MAURI Primary Care Provider [phone] Reason for Visit * Auth/Cert (Routine) Specialty [...] ARTERIAL GRAFT (WRVU 7.93) Zak Farmer MD [facility] CARDIOTHORACIC [place] [address] [facility] Referral ID Status Reason Start Date Expiration Date Visits Re quested Visits Authorized [id number] 1 1 Encounter Details Date Type Department Care Team (Late st Contact Info) Description 02/17/2024 7:35 AM EDT Anesthesia Event Main Operating Room [address] [place] [phone] Roman York MD [facility] ANESTHESIOLOGY [place] [address] Anesthesia Record Procedure Summary Procedure Name Responsible [...] by Sadiq Woo RN PIV 02/17/24; 0715; cazh-yft-dydosk catheter system; 18 gauge; cephalic vein (lateral [...] = 0.6 oz pur e alcohol) rare [facility] Utilities Answer Date Recorded In the past 12 months has th e electric, gas, oil, or water [employer] threatened to shut off services in your [...] place to sleep or slept in a mcfp (including now)? No 02/18/2024 DH IPV Inpatient [...] Procedure Summary Date: 02/17/24 Room / Location: [facility] OR [address] [place] [address] MAIN OR Anesthesia Start: 734 Anesthesia Stop: [...] Status: 3 All Anesthesia Providers: Anesthesiologist: Roman Yrok MD Vitals Value Taken Time BP Temp 33.5 ??C (92.3 ??F) 02/17/24 1315 Pulse 70 02/17/24 1347 Resp 13 02/17/24 1347 SpO2 98 % 02/17/24 1347 Pain Level Vitals shown include unfiled device data. Patient Location: [facility] Level of Consciousness: Sedated (Pharmacologic/Intentional) [...] 08/14/2023 ??? Nevus of face 09/26/2023 Right anabaptism No past surgical history on file. Social [...] AM EDT Office Visit Cardiology at [address] [place] [address] Neftali Ernandez MD [facility] [place] [address] documented as of this encounter [...] mg documented in this encounter Care Teams Front Desk Admin Relationship Specialty Start Date End Date Vanessa Christian APRN PCP - General Family Medicine 10/21/23 documented as of this encounter
--- OUTSIDE RECORDS SUMMARY | 2024-05-27 08:20 | XMS_ITS | Continuity of Care Document ---
Author Organization [facility] Address [address] [place] [address] Care Team Providers Care Manugrapher Name Role Phone VANESSA JORDAN Primary Care [...] Patient InstructionsNo instructions recorded. Reason for Referral Tuna Purse Seiner Referral for Roland ateral hearing loss Referring [...] Code Type: ICD-10; Not Available [facility] 4 05:35:57 Inguinal hernia Active 2022 Problem Code: K40.90; Problem Code Type: ICD-10; Not Available [facility] 4 05:35:57 Heart murmur Active 2022 Problem Code: R01.1; Problem Code Type: ICD-10; Not Available [facility] 4 05:35:57 Dyspnea Active 2022 Problem Code: R06.09; Problem Code Type: ICD-10; Not Available [facility] 4 05:35:57 Chest pain Active 2022 Problem Code: R07.89; Problem Code Type: ICD-10; Not Available [facility] 4 05:35:57 Melanocytic nevus Active 2022 Problem Code: D22.9; Problem Code Type: ICD-10; Not Available [facility] 4 05:35:57 Aortic stenosis, non-rheumatic Active 2022 Problem Code: I35.0; Problem Code Type: ICD-10; Not Available [facility] 4 05:35:58 Aortic stenosis, non-rheumatic Completed 202208/14/2023 Problem Code: I35.0; Problem Code Type: ICD-10; Not Available [facility] 4 05:35:58 Indigestion Active 2023 GLORIA CAMP LPN null, [facility] 4 08:48:57 Coronary artery bypass grafts x 3 Active 2023 Kelly Duran RN null, [facility] 4 10:30:01 At increased risk of atrial fibrillation Active 2023 TATYANA LEDEZMA MD [address], [place], [address] , [facility]. 4 13:52:01 Anemia Active 2023 TATYANA LEDEZMA MD [address], [place], [address] , [facility] 13:54:39 Problem Notes None recorded. Procedures Surgical History Date Name Laterality Status Provider Name and Address Organization Details Recorded Time coronary artery bypass graft completed Hudson Reeder MA [facility], [facility] 03/04/2024 14:54:09 Imaging Results None recorded. Procedure [...] es. Take 1 hr prior. Started by [facility]. Not Available Not Available Not Available doxycycli [...] BY MOUTH DAILY 02/24 completed stopped by [facility] Not Available Not Available Not Available brimonidi [...] hours by oral route as needed. active [facility] Not Available Not Available No t Available Aspirin Childrens 81 mg chewable tablet Take 1 tablet by mouth once a day active Not Available Not Available No t Available lisinopri l 5 mg tablet TAKE 1 TABLET BY MOUTH EVERY DAY 02/24 completed stopped by [facility] Not Available Not Available Not Available mupirocin [...] day by oral route. active started by [facility] Not Available Not Available Not Available dorzolami [...] Updated DateTime 4 167.64 cm 22.6 kg/m2 06171.6 5 g 63 /min 99 % 99 % 102 mm[Hg] 54 mm[Hg] Hudson Reeder MA [facility] 10:27:28 Social History Question Answer Notes LastModified by Organizat ion Details LastModified Time Tobacco Smoking Status Former Smoker Hudson Reeder MA null, [facility] 03/06/2024 10:24:50 Do You Have An Advance Directive? Yes Registered 08/15/23 Updated 01/12/24 Information not available 01/15/2024 When Did You Quit Smoking? 11-15years sincelastc igarette [email or web address] Information not available 03/06/2024 Do You Have A Medical Power Of Civil Litigation Attorney? Yes Received 08/30/23, Scanned. Copies Sent To [facility] And Patient 09/02/23. Information not available 09/02/2023 What Was The Date Of Your Most Recent Tobacco Screening? 03/06/2024 [email or web address] Information not available 03/06/2024 What Is Your Current Pack Years? 30ormorepa ckyears [email or web address] Information not available 03/06/2024 How Much Tobacco Do You Smoke? 1 PPD [email or web address] Information not available 03/06/2024 How Many Years Have You Smoked Tobacco? 40 [email or web address] Information not available 03/06/2024 Do You Or Have You Ever Used Any Other Forms Of Tobacco Or Nicotine? No [email or web address] Information not available 03/06/2024 Sex: Male Functional [...] Recorded Time Tdap 08/26/2013 completed Not Available [facility] 05:30:17 Td(adult) unspecified formulation 11/21/2022 completed Not Available [facility] 10/18/2023 05:30:17 COVID-19, mRNA, LNP-S, PF, 100 mcg/0.5mL dose or 50 mcg/0.25mL dose 01/24/2021 completed Not Available [facility] 10/18/19 05:30:18 COVID-19, mRNA, LNP-S, PF, 100 mcg/0.5mL dose or 50 mcg/0.25mL dose 02/21/2021 completed Not Available [facility] 10/18/19 05:30:18 COVID-19, mRNA, LNP-S, PF, 100 mcg/0.5mL dose or 50 mcg/0.25mL dose 09/11/2021 completed Not Available [facility] 10/18/19 05:30:18 influenza, unspecified formulation 07/26/2021 completed Not Available [facility] 10/18/2023 05:30:18 influenza, unspecified formulation 07/26/2022 completed Not Available [facility] 10/18/2023 05:30:18 influenza, unspecified formulation 07/28/2020 completed Not Available [facility] 10/18/2023 05:30:18 influenza, unspecified formulation 08/05/2019 completed Not Available [facility] 10/18/2023 05:30:18 influenza, unspecified formulation 08/12/2018 completed Not Available [facility] 10/18/2023 05:30:18 Past Encounters Encounter ID Performer Location Encounter Start Date Encounter Closed Date Diagnosis/Indication Diagnosis SNOMED-CT Code [id number] TATYANA ELDEZMA MD [address] [address] 03/06/2024 10:15:07 03/06/2024 11:14:28 Postoperative visit 419207226 Aortic rosa m nosis, non-rheumatic 377878262 Stented co ronary artery 238348244 At [facility] risk of atrial fibrillation 675938226 Anemia 821120661 Health Concerns Section Related Observation LastModified by Organization Detai ls LastModified Time None Recorded Concern Status LastModified by Organization Details LastModified Time None Recorded Payers Encounter Date Sequence Insurance Name Policy Number Policy Alicia Covered Member ID Alicia Member ID Guarantor Name 03/06/2024 1 [id number] Karlos Jessica Patenaude [id number] Karlos Jessica Patenamary Notes Date Note Type Note Provider Name and Address Organization Details Recorded Time 03/06/2024 text/html HPI Notes: Ana Paula marlow is here today for a postop evaluation MD [address], [place], [address], [facility]. 03/08/2024 13:57:34
--- OUTSIDE RECORDS SUMMARY | 2024-05-27 08:20 | XMS_ITS | Data Portability ---
Author Organization MD - [facility] Address [address] [place] [address] Care Team Providers Care Porter Bath Name Role Phone VANESSA JORDAN Primary Care Provider Assessment No assessment recorded. Plan of Treatment Reminders Order Date Submit Date Provider Last Modified By Organization Details Last Modified Time Details Appointments None recorded . Lab magnesiu m, serum or plasma 024 12/18/19 24 [facility] (Registration ), [address] [place] [address] [place], [address], 4 14:25:25 BMP, serum or plasma 024 12/18/19 24 [email or web address] [facility] (Registration ), [address] [place] [address] [place], [address], 4 14:25:24 Referral None recorded . Procedures None recorded . Surgeries None recorded . Imaging None recorded . Medication Orders None recorded . Patient TargetsNo targets recorded. Patient Instructions Encounter Date Encounter Id Patient Instructions Last Modified By Organization Details Last Modified Time 09/19/2023 [id number] SCHEDULE FOLLOW UP IN 3 MONTHS IF YOU DONT HEAR FROM THE CARDIOLOGY DEPT THIS WEEK CALL [facility] MECHANIC AND LET THEM KNOW IF YOUR BREATHING GETS WORSE- GO TO THE ER, DONT OVER DO THINGS PHYSICALLY EXPECT A CALL FROM SARA ZAFAR RE: UPDATING YOUR POWER OF VOICE COACH (NEED 2 WITNESSED SIGNATURES) Not available 09/19/2023 09:25:07 12/18/2023 [id number] Karlos: expect a call from the STructural heart team at [facility] drink at least 6 glasses of water a day. checking kidney function and magnesium labs today will mail home. follow up in 3 months for BPH, Aortic stenosis. 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 for Referral Filament Maker Referral for Roland ateral hearing loss Referring Physician: Vanessa Jordan, Family Medicine, Encounter Date: 02/26/2024 Results Created Date Observation Date Name Description Value Unit Range Abnormal Flag LastModifiedBy Organization Detail LastModifiedTime 12/18/1912/18/2023 LASIC METAB OLIC PANEL calcium 9.3 mg/dL 8.5-10 .1 normal Not Available [address] [place], [address] 12/18/2023 17:09:55 12/18/1912/18/2023 LASIC METAB OLIC PANEL glucose 90 mg/dL 74-106 normal Not Available [address] [place], [address] 12/18/2023 17:09:55 12/18/19 24 12/18/2023 LASIC METAB OLIC PANEL BUN 14 mg/dL 7-18 normal Not Available [address] [place], [address] 12/18/2023 17:09:55 12/18/19 24 12/18/2023 LASIC METAB OLIC PANEL creatinine 1.0 mg/dL 0.70-1 .30 normal Not Available [address] [place], [address] 12/18/2023 17:09:55 12/18/19 24 12/18/2023 LASIC METAB OLIC PANEL estimated GFR 84.05 mL/min /1.73m 2 Not Available [address] [place], [address] 12/18/2023 17:09:55 12/18/19 24 12/18/2023 LASIC METAB OLIC PANEL sodium 139 mmol/ L 136-14 5 normal Not Available [address] [place], [address] 12/18/2023 17:09:55 12/18/19 24 12/18/2023 LASIC METAB OLIC PANEL potassium 4.9 mmol/ L 3.5-5. 1 normal Not Available [address] [place], [address] 12/18/2023 17:09:55 12/18/19 24 12/18/2023 LASIC METAB OLIC PANEL chloride 104 mmol/ L 98-107 normal Not Available [address] [place], [address] 12/18/2023 17:09:55 12/18/19 24 12/18/2023 LASIC METAB OLIC PANEL CO2 30.9 mmol/ L 21.0-3 2.0 normal Not Available [address] [place], [address] 12/18/2023 17:09:55 12/18/19 24 12/18/2023 LASIC METAB OLIC PANEL anion gap 4.1 mmol/ L 3-11 normal Not Available [address] [place], [address] 12/18/2023 17:09:55 12/18/19 24 12/18/2023 MAGNE SIUM magnesium 1.8 mg/dL 1.8-2. 4 normal Not Available [address] [place], [address] 12/18/2023 17:09:56 09/11/2012/05/2022 trans -thor acic echoc ardio gram (TTE) (PROC ) No observ ation record ed. [email or web address] [facility] Xray [address] , [place], [address], 09/13/2023 09:29:52 09/11/20 23 06/01/2022 XR, hip, unila teral No observ ation record ed. [email or web address] Not Available 09/13/2023 09:29:19 09/11/20 23 12/06/2019 US, echoc ardio gram No observ ation record ed. [email or web address] [facility]- Cardiology [address] [place] [address] [place], [address], 09/13/2023 09:28:49 Result Notes None recorded. Problems Name Status Onset Date Resolution Date Notes Provider Name and Address Organization Details Recorded Time Gastroesophageal reflux disease without esophagitis Active 2022 Problem Code: K21.9; Problem Code Type: ICD-10; Not Available [facility] 4 05:35:57 Glaucoma Active 2022 Problem Code: H40.9; Problem Code Type: ICD-10; Not Available [facility] 4 05:35:57 Hyperlipidemia Active 2022 Problem Code: E78.5; Problem Code Type: ICD-10; Not Available [facility] 4 05:35:57 Essential hypertension Active 2022 Problem Code: I10; Problem Code Type: ICD-10; Not Available [facility] 4 05:35:57 Pain of left hip joint Active 2022 Problem Code: M25.552; Problem Code Type: ICD-10; Not Available [facility] 4 05:35:57 Idiopathic osteoarthritis Active 2022 Problem [...] Indigestion Active 2023 GLORIA CAMP LPN null, [facility] 4 08:48:57 Coronary artery bypass grafts x 3 Active 2023 Kelly Duran RN null, [facility] 4 10:30:01 At increased risk of atrial fibrillation Active [address], [facility] [address] , [facility] 4 13:52:01 Anemia Active [address], [facility] [address] [facility] 4 13:54:39 Problem Notes None recorded. Procedures Surgical History Date Name Laterality Status Provider Name and Address Organization Details Recorded Time 4 coronary artery bypass graft completed Hudson Reeder MA null, [facility] 03/04/2024 14:54:09 Imaging Results Imaging Date Name Status LastModified by Organization Details LastModified Time 12/05/2022 trans-thoracic echocardiogram (TTE) (PROC) completed [address] Xray [address], [place], [address], 09/13/2023 09:29:52 06/01/2022 XR, hip, unilateral [email or web address] Information not available 09/13/2023 09:29:19 12/06/2019 US, echocardiogram completed [address]- Cardiology [address] [facility] , [place], [address], 09/13/2023 09:28:49 Procedure Notes None recorded. Medical [...] es. Take 1 hr prior. Started by [facility]. Not Available Not Available Not Available doxycycli [...] BY MOUTH DAILY 02/24 completed stopped by [facility] Not Available Not Available Not Available brimonidi [...] hours by oral route as needed. active [facility] Not Available Not Available No t Available Aspirin Childrens 81 mg chewable tablet Take 1 tablet by mouth once a day active Not Available Not Available No t Available lisinopri l 5 mg tablet TAKE 1 TABLET BY MOUTH EVERY DAY 02/24 completed stopped by [facility] Not Available Not Available Not Available mupirocin [...] day by oral route. active started by [facility] Not Available Not Available Not Available dorzolami de 2 % (PF) eye drops 1 drop both eyes bid 12/17 completed Not Available Not Available Not Available Vitals Date Recorded Body weight Body mass index (BMI) Body height Heart rate Systolic blood pressure Diastolic blood pressure Provider Name and Address Organization Details Last Updated DateTime 3 79854.7 8 g 23.7 kg/m2 167.64 cm 64 /min 110 mm[Hg] 60 mm[Hg] GLORIA CAMP LPN [facility] 3 08:48:49 Date Recorded Body height Body mass index (BMI) Body weight Heart rate Systolic blood pressure Diastolic blood pressure Provider Name and Address Organization Details Last Updated DateTime 4 167.64 cm 24.6 kg/m2 39974.4 4 g 60 /min 112 mm[Hg] 80 mm[Hg] GLORIA CAMP LPN [facility] 4 08:38:13 Date Recorded Body height Body mass index (BMI) Body weight Heart rate Oxygen saturation Oxygen saturation in Arterial blood by Pulse oximetry Systolic blood pressure Diastolic blood pressure Provider Name and Address Organization Details Last Updated DateTime 4 167.64 cm 22.6 kg/m2 65447.6 5 g 63 /min 99 % 99 % 102 mm[Hg] 54 mm[Hg] Hudson Reeder MA [facility] 4 10:27:28 Social History Question Answer Notes LastModified by Organizat ion Details LastModified Time Tobacco Smoking Status Former Smoker Hudson Reeder MA [facility], [place] [facility]. 03/06/2024 10:24:50 Do You Have An Advance Directive? Yes Registered 08/15/23 Updated 01/12/24 Information not available 01/15/2024 When Did You Quit Smoking? 11-15years sincelastc igarette [email or web address] Information not available 03/06/2024 Do You Have A Medical Power Of Spotter? Yes Received 08/30/23, Scanned. Copies Sent To [facility] And Patient 09/02/23. Information not available 09/02/2023 What Was The Date Of Your Most Recent Tobacco Screening? 03/06/2024 [email or web address] Information not available 03/06/2024 What Is Your Current Pack Years? 30ormorepa [email or web address] Information not available 03/06/2024 How Much Tobacco Do You Smoke? 1 PPD [email or web address] Information not available 03/06/2024 How Many Years Have You Smoked Tobacco? 40 Information not available 03/06/2024 Do You Or Have You Ever Used Any Other Forms Of Tobacco Or Nicotine? No [email or web address] Information not available 03/06/2024 Sex: Male Functional [...] Recorded Time Tdap 08/26/2013 completed [facility] 05:30:17 Td(adult) unspecified formulation 11/21/2022 completed Not Available [facility] 10/18/2023 05:30:17 COVID-19, mRNA, LNP-S, PF, 100 mcg/0.5mL dose or 50 mcg/0.25mL dose 01/24/2021 completed Not Available [facility] 10/18/19 05:30:18 COVID-19, mRNA, LNP-S, PF, 100 mcg/0.5mL dose or 50 mcg/0.25mL dose 02/21/2021 completed Not Available [facility] 10/18/19 05:30:18 COVID-19, mRNA, LNP-S, PF, 100 mcg/0.5mL dose or 50 mcg/0.25mL dose 09/11/2021 completed Not Available [facility] 10/18/19 05:30:18 influenza, unspecified formulation 07/26/2021 completed Not Available [facility] 10/18/2023 05:30:18 influenza, unspecified formulation 07/26/2022 completed Not Available [facility] 10/18/2023 05:30:18 influenza, unspecified formulation 07/28/2020 completed Not Available [facility] 10/18/2023 05:30:18 influenza, unspecified formulation 08/05/2019 completed Not Available [facility] 10/18/2023 05:30:18 influenza, unspecified formulation 08/12/2018 completed Not Available [facility] 10/18/2023 05:30:18 Past Encounters Encounter ID Performer Location Encounter Start Date Encounter Closed Date Diagnosis/Indication Diagnosis SNOMED-CT Code [id number] VANESSA JORDAN [address] [address] 09/19/2023 08:39:51 09/19/2023 09:17:42 Aortic valve stenosis 02452954 Essential hypertension 58638668 [id number] VANESSA JORDAN [address] [address] 12/18/2023 08:23:47 12/18/2023 09:29:09 Aortic stenosis, non-rheumatic 823352573 Essential hypertension 84634777 Nonulcer dyspepsia 70068 07 Cramp in lower leg 36685 8000 [id number] TATYANA LEDEZMA MD [address] [address] 03/06/2024 10:15:07 03/06/2024 11:14:28 Postoperative visit 722208988 Aortic rosa m nosis, non-rheumatic 377520707 Stented co ronary artery 423710464 [facility] risk of atrial fibrillation 287515227 Anemia 046259751 Health Concerns Section Related Observation LastModified by Organization Detai ls LastModified Time None Recorded Concern Status LastModified by Organization Details LastModified Time None Recorded Advance Directives Directive Y: Registered 08/15/23Updated 01/12/24 Payers Encounter Date Sequence Insurance Name Policy Number Policy Alicia Covered Member ID Alicia Member ID Guarantor Name 12/18/2023 1 [facility] [id number] Karlos C Patenaude [id number] Karlos C Patenaude 03/06/2024 1 [id number] Karlos C Patenaude [id number] Karlos C Patenaude Notes Date Note Type Note Provider Name and Address Organization Details Recorded Time 09/19/2023 text/html HPI Notes: 63-year-old man here for follow-up hypertension, severe aortic stenosis., He works full-time at [employer]. He lives at home with his dog. He has not heard from [facility] cardiology? referred mid-August. He did decrease his lisinopril to 5 mg, home SBPs running 110- 138, no change in slight lightheadedness with change position. He does continue to get dyspnea on exertion, denies chest pain, resolves fairly quickly no peripheral edema. 12/05/2022 [facility] transthoracic echocardiogram; there is moderate to severe aortic stenosis with disparate indicators. The calculated valve area is 0.8 cm2 is consistent with severe stenosis. Planimetry confirms valve area to 0.9 cm2. The mean gradient of 28 mmHg and peak velocity of 3.6M/S are consistent with moderate stenosis. There is trivial to mild aortic insufficiency. VANESSA JORDAN, AMR[address], [place], [address], [facility]. 09/19/2023 13:31:38 12/18/2023 text/html HPI Notes: 63-year-old man here for follow-up hypertension, severe aortic stenosis., He works full-time at [employer]. He lives at home with his dog. 12/05/2022 [facility] transthoracic echocardiogram; there is moderate to severe [...] a number of years ago at [facility], it is starting to cause some discomfort. Reports leg cramps at nighttime intermittently, improves when he has a Gatorade during the daytime and Ovaltine in his coffee. [address], [place], [address], [facility]. 12/18/2023 11:43:00 03/06/2024 text/html HPI Notes: Ana Paula marlow is here today for a postop evaluation TATYANA LEDEZMA MD [address], [place], [address], [facility], [facility]. 03/08/2024 13:57:34
--- OUTSIDE RECORDS SUMMARY | 2024-05-29 08:20 | XMS_ITS | Encounter Summary ---
[facility] Organization [facility] [place] [address] Care Team Providers Care Assembler Cards And Announcements Name Role Phone Vanessa Christian MAURI Primary Care Provider [phone] Encounter Details Date Type Department Care Team (Latest Contact Info) Description 05/27/2024 Travel Social History Tobacco Use Types Packs/Day Years Used Date Smoking Tobacco: Former Cigarettes Smokeless Tobacco: Never Comments:Quit 15 + years ago Alcohol Use Standard Drinks/Week Comments Yes 0 (1 standard drink = 0.6 oz pur e alcohol) rare [facility] Utilities Answer Date Recorded In the [...] to sleep or slept in a senior care (including now)? No 02/18/2024 [facility] IPV Inpatient [...] Care Team (Late st Contact Info) Description 11/30/2024 3:00 PM EST Office Visit Cardiology at [address] [address] Neftali Ernandez MD [facility] [place] [address] documented as of this encounter Visit Diagnoses Not on filedocumented in this encounter Care Teams Assembler Cards And Announcements Relationship Specialty Start Date End Date Vanessa Christian APRN [address] [place] [address] PCP - General Family Medicine 05/27/24 documented as of this encounter
--- OUTSIDE RECORDS SUMMARY | 2024-05-29 08:20 | XMS_ITS | Encounter Summary ---
Author Organization [facility] Address [facility] [place] [address] Care Team Providers Care Contract Officer Name Role Phone Vanessa Christian MAURI Primary Care Provider [phone] Encounter Details Date Type Department Care Team (Late st Contact Info) Description 03/12/2024 2:40 PM EDT Office [place] [phone] Zak Farmer MD [facility] [place] [address] Coronary artery disease, unspecified vessel or lesion type, unspecified whether angina present, unspecified whether tulal[place] or transplanted heart Social History Tobacco Use Types Packs/Day Years Used Date Smoking Tobacco: Former Cigarettes Smokeless Tobacco: Never Comments:Quit 15 + years ago Alcohol Use Standard Drinks/Week Comments Yes 0 (1 standard drink = 0.6 oz pur e alcohol) rare [facility] Utilities Answer Date Recorded In the past 12 months has e [employer], gas, oil, or water [employer] threatened to shut off services in your [...] 2:40 PM EDT To: MD Vanessa Coles, INTERVENTIONAL TECH Re; Karlos Santa ( 1960) We had [...] office. Best personal regards, Zak Farmer MD [phone] documented in this encounter Plan of Treatment Upcoming Encounters Date Type Department Care Team (Late st Contact Info) Description 11/30/2024 3:00 PM EST Office Visit Cardiology at [address] [place] [address] Neftali Ernandez MD [facility] [place] [address] documented as of this encounter Procedures Procedure Name Priority Date/Time Associated Diagnosis Comments EKG 12-LEAD Routine 03/12/2024 2:35 PM EDT Coronary artery disease, unspecified vessel or lesion type, unspecified whether angina present, unspecified whether tulalip or transplanted heart documented in this encounter Results * EKG 12 Lead (03/12/2024 2:35 PM EDT) Ventricular rate 59 BPM MUSE SYSTEM Atrial Rate 59 BPM MUSE SYSTEM P-R Interval 190 ms MUSE SYSTEM QRS Duration 92 ms MUSE SYSTEM Q-T Interval 406 ms MUSE SYSTEM QTC Calculated (Bezet) 401 ms MUSE SYSTEM Calculated P [place] -12 degrees MUSE SYSTEM Calculated R [place] 24 degrees MUSE SYSTEM Calculated T [place] 74 degrees MUSE SYSTEM INTERPRETATION Sinus bradycardia T wave abnormality, consider anterior ischemia Abnormal ECG When compared with ECG of 17-FEB-2024 13:24, [place] interval has decreased T wave inversion now evident in Anterior leads Confirmed by Paul Guzman ([id number]) on 03/15/2024 8:36:23 AM MUSE SYSTEM 03/12/2024 2:35 PM EDT 03/15/2024 8:36 AM EDT Zak Farmer MD ECG ORDERABLES MUSE SYSTEM documented in this encounter Visit Diagnoses Diagnosis Coronary artery disease, unspecified vessel or lesion type, unspecified whether angina present, unspecified whether tul[place]ip or transplanted heart documented in this encounter Care Teams Contract Officer Relationship Specialty Start Date End Date Vanessa Christian APRN PCP - General Family Medicine 10/21/23 05/26/24 documented as of this encounter
--- OUTSIDE RECORDS SUMMARY | 2024-05-29 08:20 | XMS_ITS | Referral Summary ---
Author Organization [facility] Address [address] [place] [address] Care Team Providers Care Engine Wiper Name Role Phone Filidayna Vanessa Sherman NP Primary Care Provider Social History Tobacco Use Types Packs/Day Years Used Date Smoking Tobacco: Never Assessed Sex and Gender Information Value Date Recorded Sex Assigned at Not on file Gender Identity Not on file Sexual Orientation Not on file Plan of Treatment Not on file Care Teams Engine Wiper Relationship Specialty Start Date End Date Vanessa Christian NP [address] [place] [address] PCP - General Family Medicine - Primary Care 10/07/23
--- OUTSIDE RECORDS SUMMARY | 2024-05-29 08:20 | XMS_ITS | Encounter Summary ---
Author Organization [facility] Address [address] [place] [address] Care Team Providers Care Airline Stewardess Name Role Phone Vanessa Christian Lane MONCADA Primary Care Provider [phone] Encounter Details Date Type Department Care Team (Late st Contact Info) Description 10/24/2023 Lab Requisition [facility] Pathology & Laboratory Medicine - [address] [address] Oscar Nichole MD [address] [place] [address] [phone] Factitial dermatitis Social History Tobacco Use Types [...] if applicable. 10/28/2023 11:24 EST [facility] Final Diagnosis A. SKIN OF ALEVISM, LEFT, SHAVE BIOPSY: - Seborrheic keratosis, pigmented. 10/28/2023 11:24 EST [facility] Attestation By the signature below, the attending physician certifies that they have 1) personally conducted a gross and/or microscopic examination of the described specimen(s), and/or personally interpreted the results of laboratory testing of the described specimen(s), and 2) personally rendered or confirmed the above diagnosis. 10/28/2023 11:24 [facility] at [address] Microscopic Description The stratum corneum is thickened by compact and basketweave orthokeratosis with formation of horn pseudocysts. The epidermis is acanthotic with formation of broad and anastomosing trabeculae. The trabeculae are composed of basaloid keratinocytes with round uniform nuclei. The keratinocytes have a variable amount of melanin pigment. 10/28/2023 11:24 [facility] Clinical History Pigmented 2 cm patch; clinical diagnosis code: L98.1 10/28/2023 11:24 [facility] Gross Description A. Received in formalin labelled with proper patient identification (initials P, A) and left bahai is a shave biopsy of an irregular [...] A3. Nora Anderson 10/25/2023 8:47 10/28/2023 11:24 [facility] Performing Lab [facility] 10/28/2023 11:24 [facility] Scanned Images 10/28/2023 11:24 [facility] Tissue SPECIMEN FROM SKIN / Unknown 10/24/2023 14:30 EST 10/24/2023 22:04 EST Oscar Nichole MD PATHOLOGY ORDERABLES [facility] [address] [place] [address] documented in this encounter Visit Diagnoses Diagnosis Factitial dermatitis Dermatitis factitia (artefacta) documented in this encounter Care Teams Airline Stewardess Relationship Specialty Start Date End Date Vanessa Christian NP [address] [place] [address] PCP - General Family Medicine - Primary Care 10/07/23 documented as of this encounter
--- OUTSIDE RECORDS SUMMARY | 2024-05-29 08:20 | XMS_ITS | Clinical Summary ---
Author Organization [facility] Address [address] [place] [address] Care Team Providers Care Bar Helper Name Role Phone Vanessa Christian NP Primary Care Provider [phone] Social History Tobacco Use Types Packs/Day Years [...] COVID-19 Vaccine (2022-24 season) 2023 Care Teams Bar Helper Relationship Specialty Start Date End Date Vanessa Christian NP [address] [place] [phone] PCP - General Family Medicine - Primary Care 10/07/23
--- OUTSIDE RECORDS SUMMARY | 2024-05-29 08:20 | XMS_ITS | Clinical Summary ---
Author Organization [facility] Address [facility] [place] [address] Care Team Providers Care Auto Body Painter Name Role Phone Vanessa Christian Lane DOTSON Primary Care Provider [phone] Allergies No known active allergies Medications Medication Sig Dispensed Refills Start Date End Date Status aspirin EC 81 mg EC (DR) tablet Take 81 mg by mouth daily. Active multivitamin (THERAGRAN) Tablet Take 1 tablet by mouth daily. Active brimonidine (Alphagan) 0.2 % Drops Place 1 drop into both eyes 2 times daily. Active tamsulosin (Flomax) 0.4 mg capsule Take 0.4 mg by mouth daily. Active timoloL (Timoptic) 0.5 % Drops Place 1 drop into both eyes daily. Active dorzolamide (Trusopt) 2 % Drops 3 times daily. A ctive amoxicillin (Amoxil) 500 mg capsule Take 4 capsules by mouth once as needed for up to 1 dose. Please take 1 hour PRIOR to ANY dental procedure 4 capsule 02/24/2024 Active atorvastatin (Lipitor) 20 mg tablet Take 20 mg by mouth daily. Active omeprazole (PriLOSEC) [address] capsule Take 20 mg by mouth daily. Active metoprolol tartrate (Lopressor) 100 mg tablet Take 0.5 tablets by mouth 2 times daily. 05/27/2024 Active Active Problems Problem Noted Date Diagnosed Date ASCVD (arteriosclerotic cardiovascular disease) 05/27/2024 Overview (05/27/2024): Cardiac Catheterization: (01/2024) RIGHT dominance Indication: pre-SAVR Artery Lesion Intervention LM Mid 70 LAD Prox 50 LCx mild RCA Prox 70 02/2024: CABG x 3 (JOSE-LAD, SVG-RCA, SVG-OM1) at time of SAVR Assessment & Plan (05/27/2024 11:57 AM EDT): No angina per history. Can try decrease lipitor back to 20 to see if this was the cause of the tinnitus. No weight lifting restrictions. - Anti-Thrombosis: asa 81 - Anti- Lipemic: lipitor 10 - Anti- Anginals: GTN PRN, metoprolol Gastroesophageal reflux 09/26/[address] enosis due to bicuspid aortic valve, s/p SAVR 202308/14/2023 Overview (05/27/2024): 02/2024: SAVR with a 23 mm Inspiris Bioprosthesis Assessment & Plan (05/27/2024 11:06 AM EDT): No issues per history nor exam. - ASA 81 QD - Because the valve is not mechanical, VKA is not required for this indication - Anti-biotic prophylaxis required as directed against expected bacterial prem of at-risk procedures. Assessment & Plan (10/21/2023 3:47 PM EST): Based on patient's history, it seems like he indeed has severe . However, his demographics, rapidity of worsening (had TTE in 2019 which demonstrated but mild disease) are contrary to this. Will review images personally, but in the meantime will refer to SHT at [facility] for further evaluation. Logistics and preliminary review of TONY were reviewed with patient. - Refer to SHT Hypertension 08/14/2023 Resolved Problems Problem Noted Date Diagnosed Date Resolved Date Nevus of face 09/26/2023 05/27/2024 Overview (09/26/2023): Right voodoo Chest pressure 08/14/2023 10/21/2023 SILVA (dyspnea on exertion) 08/14/2023 HLD (hyperlipidemia) 08/14/2023 024 Encounters Date Type Department Care Team Description 05/27/2024 11:00 AM EDT Office Visit Cardiology at [address] [phone] Neftali Ernandez MD ASCVD (arteriosclerotic cardiovascular disease); Nonrheumatic aortic valve stenosis 05/27/2024 Travel 05/20/2024 Travel 03/12/2024 2:40 PM EDT Office Visit Cardiac Surgery at [facility] [address] Zak Farmer MD Coronary artery disease, unspecified vessel or lesion type, unspecified whether angina present, unspecified whether zuni or transplanted heart 03/12/2024 1:30 PM EDT - 03/12/2024 11:59 PM EDT Hospital Encounter XRay at [address] [place] [address] Coronary artery disease, unspecified vessel or lesion type, unspecified whether angina present, unspecified whether zuni or transplanted heart Discharge Disposition: Home 03/12/2024 Travel from Last 3 Months Social History Tobacco Use Types Packs/Day Years Used Date Smoking Tobacco: Former Cigarettes Smokeless Tobacco: Never Comments:Quit 15 + years ago Alcohol Use Standard Drinks/Week Comments Yes 0 (1 standard drink = 0.6 oz pur e alcohol) rare [facility] Utilities Answer Date Recorded In the past 12 months has th e [employer], gas, oil, or water [employer] threatened to shut off services in your [...] Sign Reading Time Taken Comments Blood Pressure 126/72 05/27/2024 11:09 AM EDT Pulse 54 05/27/2024 11:09 AM EDT Temperature 36.7 ??C (98 ??F) 02/24/2024 7:49 AM EDT Respiratory Rate 18 02/24/2024 7:49 AM EDT Oxygen Saturation 98% 03/12/2024 2:24 PM EDT Inhaled Oxygen Concentration - - Weight 65.8 kg (145 lb 1.6 oz) 05/27/2024 11:09 AM EDT Height 167.6 cm (5' 6) 05/27/2024 11:09 AM EDT Body Mass Index 23.42 05/27/2024 11:09 AM EDT Plan of Treatment Upcoming Encounters Date Type Department Care Team (Late st Contact Info) Description 11/30/2024 3:00 PM EST Office Visit Cardiology at [address] [place] [address] Neftali Ernandez MD [facility] [place] [address] Health Maintenance Due Date Last Done Comments [...] series) 06/07/2024 Medical Devices Implanted Type Area Plumbing Technician Device Identifier Shelf Expiration Date Model / Serial / Lot Cable,Cut,Edg ,Blnt,Ss,3tpr ([id number]) - [id number] Implanted:Qty : 1 on 02/17/2024 by Zak Farmer MD at [facility] IMPLANTS Midline: Chest [employer] - [id number] 09/02/2028 [id number] / / [id number] Valve Coronary Aortic 23mm Tissue Trnscath Biopros Inspiris ([id number]) (Autoreq) - [id number] Implanted:Qty : 1 on 02/17/2024 by Zak Farmer MD at [facility] IMPLANTS Heart [employer] - TSAI LI 09/15/2027 [id number] / [id number] / Procedures Procedure Name Priority Date/Time Associated Diagnosis Comments EKG 12-LEAD Routine 03/12/2024 2:35 PM EDT Coronary artery disease, unspecified vessel or lesion type, unspecified whether angina present, unspecified whether zuni or transplanted heart XR CHEST PA AND LATERAL Routine 03/12/2024 1:42 PM EDT Coronary artery disease, unspecified vessel or lesion type, unspecified whether angina present, unspecified whether zuni or transplanted heart from Last 3 Months Results * EKG 12 Lead (03/12/2024 2:35 PM EDT) Ventricular rate 59 BPM MUSE SYSTEM Atrial Rate 59 BPM MUSE SYSTEM P-R Interval 190 ms MUSE SYSTEM QRS Duration 92 ms MUSE SYSTEM Q-T Interval 406 ms MUSE SYSTEM QTC Calculated (Bezet) 401 ms MUSE SYSTEM Calculated P [place] -12 degrees MUSE SYSTEM Calculated R [place] 24 degrees MUSE SYSTEM Calculated T [place] 74 degrees MUSE SYSTEM INTERPRETATION Sinus bradycardia T wave abnormality, consider anterior ischemia Abnormal ECG When compared with ECG of 17-FEB-2024 13:24, [place] interval has decreased T wave inversion now evident in Anterior leads Confirmed by Paul Guzman ([id number]) on 03/15/2024 8:36:23 AM MUSE SYSTEM 03/12/2024 2:35 PM EDT 03/15/2024 8:36 AM EDT Zak Farmer MD ECG ORDERABLES MUSE SYSTEM * XR Chest PA & Lateral (Generic) (03/12/2024 1:42 PM EDT) WORKSTATION ID [id number] RAD Anatomical Region Laterality Modality Chest N/A [...] please contact the health career technical education instructor that requested your imaging first. ? Electronically signed by: Augie Sanchez MD, [facility] ([phone]), at 03/13/2024 8:28 AM Narrative 03/13/2024 8:28 AM EDT EXAMINATION: XR CHEST PA AND LATERAL (GENERIC) CLINICAL HISTORY: s/p cabg eval effusions I25.10, Atherosclerotic heart disease of zuni coronary artery without angina pectoris TECHNIQUE: PA [...] eval effusions I25.10, Atherosclerotic heart disease of zuni coronary artery withoutangina pectoris TECHNIQUE: PA and [...] questions please contactthe health career technical education instructor that requested your imaging first. Electronically signed by: Augie Sanchez MD, [facility]([phone]), at 03/13/2024 8:28 AM Zak Farmer MD [...] Status decision made by: Patient Care Teams Auto Body Painter Relationship Specialty Start Date End Date Vanessa Christian, MAURI [address] [place] [address] PCP - General Family Medicine 05/27/24
--- OUTSIDE RECORDS SUMMARY | 2024-05-29 08:20 | XMS_ITS | Encounter Summary ---
Author Organization [facility] Address [facility] [place] [address] Care Team Providers Care Curb And Gutter Laborer Name Role Phone Vanessa Christian Lane DOTSON Primary Care Provider [phone] Reason for Visit * Reason Comments Coronary Artery Disease Aortic Stenosis Encounter Details Date Type Department Care Team (Latest Contact Info) Description 05/27/2024 11:00 AM EDT Office Visit Cardiology at [address] [place] [phone] Neftali Ernandez MD [facility] [place] [address] ASCVD (arteriosclerotic cardiovascular disease); Nonrheumatic aortic valve stenosis Social History Tobacco Use Types Packs/Day Years Used Date Smoking Tobacco: Former Cigarettes Smokeless Tobacco: Never Comments:Quit 15 + years ago Alcohol Use Standard Drinks/Week Comments Yes 0 (1 standard drink = 0.6 oz pur e alcohol) rare [facility] Utilities Answer Date Recorded In the past 12 months has e [employer], gas, oil, or water [employer] threatened to shut off services in your [...] No 02/18/2024 Housing Stability Vital Sign Answer Viola e Recorded Unable to Pay for Housing [...] Pulse 54 05/27/2024 11:09 AM EDT Temperature - - Respiratory Rate - - Oxygen Saturation - - Inhaled Oxygen Concentration - - Weight 65.8 kg (145 lb 1.6 oz) 05/27/2024 11:09 AM EDT Height 167.6 cm (5' 6) 05/27/2024 11:09 AM EDT Body Mass Index 23.42 05/27/2024 11:09 AM EDT documented in this encounter Patient Instructions * Patient Instructions* Neftali Ernandez MD - 05/27/2024 11:00 AM EDT - Take 1/2 a tablet of the metoprolol twice a day (instead of a full tablet). - Call next week with blood pressure, heart rate, and any new symptoms documented in this encounter Progress Notes * Neftali Ernandez MD - 05/27/2024 11:00 AM EDT Images from the original note were not included. Subjective: Patient ID: Karlos Anthony is a 63 y.o. male who presents on follow-up for: Chief Complaint Patient presents with Coronary Artery Disease Aortic Valve Disorder HPI Last seen by me 10/2023, at which time no changes were made; referral was made for AVR. This was completed (alongside a CABG) 02/2024 without significant complication. Since then, he has been doing quite well. Excellent activity is without angina nor untoward dyspnea. No palpitations. + Fatigue. No bleeding on VIOLA Bp well controlled + tinnitus, since increase in llipitor Current Outpatient Medications Medication Instructions amoxicillin (AMOXIL) 2,000 mg, Oral, ONCE PRN, Please take 1 hour PRIOR to ANY dental procedure aspirin EC 81 mg, Oral, DAILY atorvastatin (LIPITOR) 20 mg, Oral, DAILY brimonidine (Alphagan) 0.2 % Drops 1 drop, Both Eyes, 2 TIMES DAILY dorzolamide (Trusopt) 2 % Drops 3 TIMES DAILY metoprolol tartrate (LOPRESSOR) 50 mg, Oral, 2 TIMES DAILY multivitamin (THERAGRAN) Tablet 1 tablet, Oral, DAILY omeprazole (PRILOSEC) 20 mg, Oral, DAILY tamsulosin (FLOMAX) 0.4 mg, Oral, DAILY timoloL (Timoptic) 0.5 % Drops 1 drop, Both Eyes, DAILY Patient Active Problem List Diagnosis ASCVD (arteriosclerotic cardiovascular disease) Cardiac Catheterization: (01/2024) RIGHT dominance Indication: pre-SAVR Artery Lesion Intervention LM Mid 70 LAD Prox 50 LCx mild RCA Prox 70 02/2024: CABG x 3 (JOSE-LAD, SVG-RCA, SVG-OM1) at time of SAVR Nonrheumatic aortic valve stenosis due to bicuspid aortic valve, s/p SAVR 02/2024: SAVR with a 23 mm Inspiris Bioprosthesis Gastroesophageal reflux Hypertension Objective: BP 126/72 (BP Location (NBP): Right arm, Patient Position: Sitting, BP Cuff Sizes: Adult (25-34 cm)) Pulse 54 Ht 167.6 cm (5' 6) Wt 65.8 kg (145 lb 1.6 oz) BMI 23.42 kg/m?? Gen: pleasant male in NAD Cor: eusebia reg, s1/s2 of nl character and amplitude, no pathologic m/r/g. Estimated RAP not elevated. Carotids with normal upstroke without bruit. Sternal incision well healing Pulm: CTAB. Normal diaphragmatic movement without use of accessory muscles EKG: nsr via 1* AVNB, 54 bpm Assessment and Plan: ASCVD (arteriosclerotic cardiovascular disease) No angina per history. Can try decrease lipitor back to 20 to see if this was the cause of the tinnitus. No weight lifting restrictions. - Anti-Thrombosis: asa 81 - Anti- Lipemic: lipitor 10 - Anti- Anginals: GTN PRN, metoprolol Nonrheumatic aortic valve stenosis due to bicuspid aortic valve, s/p SAVR 2023 No issues per history nor exam. - ASA 81 QD - Because the valve is not mechanical, VKA is not required for this indication - Anti-biotic prophylaxis required as directed against expected bacterial prem of at-risk procedures. POAF: No evidence of afib since discharge. Thus, reasonable to discontinue eliquis and taper off metoprolol (the latter especially with new symptom of fatigue) RTC 6 months Neftali Ernandez MD documented in this encounter Miscellaneous Notes * Assessment & Plan Note - Neftali Ernandez MD - 05/27/2024 11:06 AM EDT Associated Problem(s): Nonrheumatic aortic valve stenosis due to bicuspid aortic valve, s/p SAVR 2023 No issues per history nor exam. - ASA 81 QD - Because the valve is not mechanical, VKA is not required for this indication - Anti-biotic prophylaxis required as directed against expected bacterial prem of at-risk procedures. * Assessment & Plan Note - Neftali Ernandez MD - 05/27/2024 11:06 AM EDT Associated Problem(s): ASCVD (arteriosclerotic cardiovascular disease) No angina per history. Can try decrease lipitor back to 20 to see if this was the cause of the tinnitus. No weight lifting restrictions. - Anti-Thrombosis: asa 81 - Anti- Lipemic: lipitor 10 - Anti- Anginals: GTN PRN, metoprolol documented in this encounter Plan of Treatment Upcoming Encounters Date Type Department Care Team (Late st Contact Info) Description 11/30/2024 3:00 PM EST Office Visit Cardiology at [address] [address] Neftali Ernandez MD [facility] [place] [address] documented as of this encounter Visit Diagnoses Diagnosis ASCVD (arteriosclerotic cardiovascular disease) Unspecified cardiovascular disease Nonrheumatic aortic valve stenosis Aortic valve disorders documented in this encounter Care Teams Curb And Gutter Laborer Relationship Specialty Start Date End Date Vanessa Christian APRN [address] [place] [address] PCP - General Family Medicine 05/27/24 documented as of this encounter
--- OUTSIDE RECORDS SUMMARY | 2024-05-29 08:20 | XMS_ITS | Encounter Summary ---
Author Organization [facility] Address [facility] [place] [address] Care Team Providers Care Digital Strategy Manager Name Role Phone Vanessa Christian MAURI Primary Care Provider [phone] Encounter Details Date Type Department Care Team (Latest Contact Info) Description 03/12/2024 1:30 PM EDT - 03/12/2024 11:59 PM EDT Hospital Encounter XRay at [address] [place] [address] Coronary artery disease, unspecified vessel or lesion type, unspecified whether angina present, unspecified whether hamilton or transplanted heart Discharge Disposition: Home Social History Tobacco Use Types Packs/Day Years Used Date Smoking Tobacco: Former Cigarettes Smokeless Tobacco: Never Comments:Quit 15 + years ago Alcohol Use Standard Drinks/Week Comments Yes 0 (1 standard drink = 0.6 oz pur e alcohol) rare [facility] Utilities Answer Date Recorded In the past 12 months has e [employer], gas, oil, or water [employer] threatened to shut off services in [...] Sig Dispensed Refills Start Date End Date amoxicillin (Amoxil) 500 mg capsule Take 4 capsules by mouth once as needed for up to 1 dose. Please take 1 hour PRIOR to ANY dental procedure 4 capsule 02/24/2024 dorzolamide (Trusopt) 2 % Drops 3 times daily. aspirin EC 81 mg EC (DR) tablet Take 81 mg by mouth daily. multivitamin (THERAGRAN) Tablet Take 1 tablet by mouth daily. brimonidine (Alphagan) 0.2 % Drops Place 1 drop into both eyes 2 times daily. tamsulosin (Flomax) 0.4 mg capsule Take 0.4 mg by mouth daily. timoloL (Timoptic) 0.5 % Drops Place 1 drop into both eyes daily. lisinopriL (Zestril) 10 mg tablet Take 1 tablet by mouth daily. 01/29/2024 05/27/2024 acetaminophen (Tylenol) 325 mg tablet Take 3 tablets by mouth every 6 hours as needed for Pain. 30 tablet 1 02/24/2024 05/27/2024 apixaban (Eliquis) 5 mg tablet Take 1 tablet by mouth 2 times daily. 180 tablet 3 02/24/2024 05/27/2024 metoprolol tartrate (Lopressor) 100 mg tablet Take 1 tablet by mouth 2 times daily. 180 tablet 3 02/24/2024 05/27/2024 apixaban (Eliquis) 5 mg tablet Take 1 tablet by mouth 2 times daily. 3 tablet 02/24/2024 05/27/2024 metoproloL tartrate (Lopressor) 100 mg tablet Take 1 tablet by mouth 2 times daily. 3 tablet 02/24/2024 05/27/2024 atorvastatin (Lipitor) 10 mg tablet Take 10 mg by mouth daily. 05/27/2024 documented as of this encounter Plan of Treatment Upcoming Encounters Date Type Department Care Team (Late st Contact Info) Description 11/30/2024 3:00 PM EST Office Visit Cardiology at [address] [place] [address] Neftali Ernandez MD [facility] [place] [address] documented as of this encounter Procedures Procedure Name Priority Date/Time Associated Diagnosis Comments XR CHEST PA AND LATERAL Routine 03/12/2024 1:42 PM EDT Coronary artery disease, unspecified vessel or lesion type, unspecified whether angina present, unspecified whether hamilton or transplanted heart documented in this encounter Results * XR Chest PA & Lateral (Generic) (03/12/2024 1:42 PM EDT) WORKSTATION ID [id number] RAD Anatomical Region Laterality Modality Chest N/A [...] questions please contact the health child care leader that requested your imaging first. ? 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 Electronically signed by: Augie Sanchez MD, [facility]([phone]), at 03/13/2024 8:28 AM Zak Farmer MD IMG DX ORDERABLES documented in this encounter Visit Diagnoses Diagnosis Coronary artery disease, unspecified vessel or lesion type, unspecified whether angina present, unspecified whether hamilton or transplanted heart documented in this encounter Care Teams Digital Strategy Manager Relationship Specialty Start Date End Date Vanessa Christian, MAURI PCP - General Family Medicine 10/21/23 05/26/24 documented as of this encounter
--- OUTSIDE RECORDS SUMMARY | 2024-05-29 08:20 | XMS_ITS | Encounter Summary ---
Author Organization [facility] Address [facility] [address] Care Team Providers Care Foundation Assistant Name Role Phone Vanessa Christian MAURI Primary Care Provider [phone] Encounter Details Date Type Department Care Team (Latest Contact Info) Description 05/20/2024 Travel Social History Tobacco Use Types Packs/Day Years Used Date Smoking Tobacco: Former Cigarettes Smokeless Tobacco: Never Comments:Quit 15 + years ago Alcohol Use Standard Drinks/Week Comments Yes 0 (1 standard drink = 0.6 oz pur e alcohol) rare [facility] Utilities Answer Date Recorded In the [...] 3:00 PM EST Office Visit Cardiology at [address] [id number] Neftali Ernandez MD [facility] [place] [address] documented as of this encounter Visit Diagnoses Not on filedocumented in this encounter Care Teams Foundation Assistant Relationship Specialty Start Date End Date Vanessa Christian APRN PCP - General Family Medicine 10/21/23 05/26/24 documented as of this encounter
--- OUTSIDE RECORDS SUMMARY | 2024-05-29 08:20 | XMS_ITS | Encounter Summary ---
Author Organization [facility] Address [facility] [place] [address] Care Team Providers Care Metal Molder Name Role Phone Gino Vanessa Lane DOTSON Primary Care Provider [phone] Encounter Details Date Type Department Care Team (Late st Contact Info) Description 02/24/2024 Orders Only Cardiac Surgery [facility] [place] [id number] Trudi Lester APRN [facility] [place] [address] Social History Tobacco Use Types Packs/Day Years Used Date Smoking Tobacco: Former Cigarettes Smokeless Tobacco: Never Comments:Quit 15 + years ago Alcohol Use Standard Drinks/Week Comments Yes 0 (1 standard drink = 0.6 oz pur e alcohol) rare [facility] Utilities Answer Date Recorded In the past 12 months has [employer], gas, oil, or water [employer] threatened to shut off services in [...] PM EST Office Visit Cardiology at [address] [place] [address] Neftali Ernandez MD [facility] [place] [address] documented as of this encounter Visit Diagnoses Not on filedocumented in this encounter Care Teams Metal Molder Relationship Specialty Start Date End Date Vanessa Christian APRN PCP - General Family Medicine 10/21/23 05/26/24 documented as of this encounter
--- OUTSIDE RECORDS SUMMARY | 2024-05-29 08:20 | XMS_ITS | Encounter Summary ---
[place] [address] Care Team Providers Care Hse Coordinator Name Role Phone Aparna Jordan MAURI Primary Care Provider [phone] Reason for Referral * Diagnostic Test (Routine) - New Request Specialty Diagnoses / Procedures Referred By Contac t Referred To Contact Cardiology Diagnoses S/P AVR Procedures Echocardiogram Transthoracic Neftali Menon PA [facility] [place] [address] [facility] [place] [address] Referral ID Status Reason Start Date Expiration Date Visits Requested Visits Authorized [id number] New Request Specialty Service Requested 02/24/2024 02/23/2025 1 1 * Consultation (Routine) - Authorized Specialty Diagnoses / Procedures Referred By Contac t Referred To Contact Cardiology Diagnoses S/P AVR Hayder Graham MD [facility] [place] [address] Cardiac Rehab, [facility] [address] [place] [address] [place] [address] Referral ID Status Reason Start Date Expiration Date Visits Requested Visits Authorized [id number] Authorized Consult, Test & Treat 02/24/2024 08/22/2024 36 36 * Home Health Care (Routine) - Authorized Specialty Diagnoses / Procedures Referred By Sixto mendoza Referred To Contact Diagnoses S/P AVR Hayder Graham MD [facility] [place] [address] Referral ID Status Reason Start Date Expiration Date Visits Requested Visits Authorized [id number] Authorized Consult, Test & Treat 02/24/2024 08/22/2024 [...] ARTERIAL GRAFT (WRVU 7.93) Hayder Graham MD [facility] [place] [address] [facility] Referral ID Status Reason Start Date Expiration Date Visits Re quested Visits Authorized [id number] 1 1 Encounter Details Date Type Department Care Team (Latest Contact Info) Description 02/17/2024 5:43 AM EDT - 02/24/2024 11:23 AM EDT Hospital Encounter Heart and Vascular Unit Level 4 [place] [address] Hayder Graham MD [facility] [place] [address] S/P AVR (Primary Dx); Aortic valve stenosis, etiology of cardiac valve disease unspecified Discharge Disposition: Home with VNA Social History Tobacco Use Types Packs/Day Years Used Date Smoking Tobacco: Former Cigarettes Smokeless Tobacco: Never Comments:Quit 15 + years ago Alcohol Use Standard Drinks/Week Comments Yes 0 (1 standard drink = 0.6 oz pur e alcohol) rare [facility] Utilities Answer Date Recorded In [...] Patient Age: 63 y.o. Birthdate: 1960 Language: Dominican Race: White Ethnicity: Not nor Admit Date: 02/17/2024 Discharge Date: 02/24/24 Attending Physician: Hayder Graham MD Follow-up Recommendations for Providers: Please continue routine management of cardiovascular risk factors including blood pressure, lipids,glucose, etc. Please note any changes to medications. Patient to follow up with PCP, Aparna Jordan APRN, in 1-2 weeks. Patient to follow up with Emt Driver, Neftali Ernandez MD , in 2 weeks. Patient to follow up with Cardiac Surgeon, Dr. Hayder Graham, with a chest x-ray, EKG, and Echo. 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 Right holiness Past Surgical History: Procedure Laterality Date PRO CABG, ARTERIAL, SINGLE N/A 02/17/2024 @CABG, USING ARTERIAL GRAFT;SINGLE ARTERIAL GRAFT (WRVU 33.75) performed by Hayder Graham MD at [facility] MAIN OR PRO CABG, ARTERY-VEIN, TWO N/A 02/17/2024 @CABG, TWO VENOUS GRAFTS & ARTERIAL GRAFT (WRVU 7.93) performed by Hayder Graham MD at [facility] MAIN OR PRO ENDOSCOPY W/VIDEO-ASST VEIN HARVEST, CABG Left 02/17/2024 ENDOSCOPIC HARVEST VEIN(S) FOR CABG (WRVU 0.31) performed by Hayder Graham MD at [facility] MAIN OR PRO REPLACEMENT PROSTHETIC AORTIC VALVE OPEN W CARDIOPULMONARY BYPASS HOMOGRF/STENT N/A 02/17/2024 @REPLACE AORTIC VALVE, OPEN, W\CPB, W\PROSTHETIC VALVE (WRVU 41.32) performed by Hayder Graham MD at [facility] MAIN OR Prior To Admission Medications [...] insufficiency. He has glaucoma. He used to [employer] until about 15 years ago. He has undergone prior herniorrhaphy. 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 Major Procedures/Operations: 02/17/24 s/p avr/cabgx3 CABG x 3 JOSE->LAD SVG->dRCA SVG->OM1 EVH from LLE AVR with a 23 mm Inspiris Bioprosthesis Hospital Course: [facility] [...] without incident. He voided normally after his Delaney was removed. Atrial Fibrillation likely related to [...] Hayder Graham and/or the Cardiac Surgery Physician Die Cutter Diamond Team may be reached at . Antibiotic [...] Please refer to the card with the [place] [employer] Guidelines for more information. You [...] Dr. Hayder Graham. You may use a Hunter Track or treadmill but avoid any pulling [...] friends, go to a movie, go to sikhism, etc. Heavy activities: No hunting, skiing, jogging, [...] should resume a low fat, low cholesterol, [place] [employer] Diet. Driving: No driving until [...] while being managed by your PCP and/or Emt Driver. For future medication refills, please refer to your PCP and/or Emt Driver after your discharge from our service. Thank you REMOVE CHEST TUBE SUTURES ON OR AFTER 03/02/24 Home oxygen therapy: N/A Follow up appointments: You should follow up with your PCP, Aparna Jordan APRN, in 1-2 weeks. Our office will schedule an appointment with your Emt Driver, Neftali Ernandez MD , in 2 weeks. You have an appointment with your Cardiac Surgeon, Dr. Hayder Graham, 4 weeks with a chest x-ray, EKG, and Echo before your appointment. Cardiac Rehabilitation: Karlos Garcia was seen regarding participation in the outpatient Phase 2Cardiac Rehabilitation at [facility]. The patient agrees to a referral to this program. The referral will be sent at discharge and the patient should be contacted by the Program within 1- 2 weeks from discharge. Future Appointments and Orders Future Orders Complete By Expires Echocardiogram Transthoracic [73054 CPT(R)] 03/26/2024 09/25/2024 Process Instructions: Scheduling Instructions: Questions: Where will study be performed?: [facility] Does the patient have Congenital Heart Disease?: Does patient require sedation?: Sedation rationale: XR Chest PA & Lateral (Generic) [77330 51875 Custom] 03/26/2024 09/25/2024 Process Instructions: Scheduling Instructions: Questions: Portable exam?: Reason for exam and clinical history: s/p avr/cabg Clinical information / jerome questions for radiologist: Stat read required?: Date of injury if applicable: Requested Time: Where will study be performed?: [facility] Radiology Referral to Cardiac Rehab [[id number] Custom] As directed Process Instructions: If no progress note charted, please enter Clinical details in comments. Scheduling Instructions: Questions: My question or request is: s/p AVR/CABG. Cardiac rehab at [facility]. Referral to Home Health [REF34 Custom] As directed Process Instructions: If no progress note charted, please enter Clinical details in comments. Scheduling Instructions: Comments: Please evaluate Karlos Garcia for admission to Home Health. [address] Phone Number: Date of : 1960 Inpatient DOCUMENTATION FOR VNA SERVICES (INCLUDING THOSE PATIENTS WITH MEDICARE COVERAGE REQUIRING HOME VNA SERVICES AND/OR HOSPICE SERVICES) PATIENT'S LOCATION: Karlos Garcia [address] [employer] [phone] Psychology Department Chair's Name: self/family In discussion with the attending physician, it is certified that this patient is under their care and that they, or a Nurse Practitioner, or Physician Die Cutter Diamond who is working directly with them, hada [...] for services as follows: HOME HEALTH AGENCY: [facility] [address] [place] [address] RN orders: Cardiopulmonary assessment, incisional assessment, assess [...] issues please call the Cardiology Office at [phone] FOR MEDICARE ONLY: (please delete this section [...] be obtained from this patient's PCP: Aparna eRed APRN [address] / [place] [address] . All VNA agencies which cover the area of patient's residence have been reviewed, either verbally or in writing, and patient/family have chosen the home health care agency noted. Questions: Disciplines Requested: Nursing Physical Therapy Arrangements for VNA/home care: As above. Signed: NEFTALI MENON PA-C [facility] Section of Cardiac Surgery [facility] [place] [address] FAX [phone] Date: 02/24/2024 CC: Aparna Jordan, MAURI Jordan, Aparna Sherman APRN [address] [place] [address] documented in this encounter Discharge Instructions * [...] Hayder Graham and/or the Cardiac Surgery Physician Die Cutter Diamond Team may be reached at . Antibiotic [...] Please refer to the card with the [place] Heart [employer] Guidelines for more information. You [...] Dr. Hayder Graham. You may use a Hunter Track or treadmill but avoid any pulling [...] friends, go to a movie, go to sikhism, etc. Heavy activities: No hunting, skiing, jogging, [...] should resume a low fat, low cholesterol, [place] Heart [employer] Diet. Driving: No driving until [...] while being managed by your PCP and/or Emt Driver. For future medication refills, please refer to your PCP and/or Emt Driver after your discharge from our service. Thank you REMOVE CHEST TUBE SUTURES ON OR AFTER 03/02/24 Home oxygen therapy: N/A Follow up appointments: You should follow up with your PCP, Aparna Jordan APRN, in 1-2 weeks. Our office will schedule an appointment with your Emt Driver, Neftali Ernandez MD , in 2 weeks. You have an appointment with your Cardiac Surgeon, Dr. Hayder Graham, 4 weeks with a chest x-ray, EKG, and Echo before your appointment. Cardiac Rehabilitation: Karlos Garcia was seen regarding participation in the outpatient Phase 2Cardiac Rehabilitation at [facility]. The patient agrees to a referral to [...] daily. 05/27/2024 documented as of this encounter Progress Notes * Jazlyn Maldonado RN - 02/24/2024 10:28 AM EDT Pt A/Ox4. SR on tele, see saved tele strips. Incisional pain managed with scheduled Tylenol. Had a shower today. Daughter at bedside. Discharge paperwork reviewed with patient and daughter. Telemetrydiscontinued. Ivs removed. Pt discharged home with daugher. * Neftali Menon PA - 02/24/2024 8:56 [...] 0600 and on the weekends please page [phone]. * Eric Barahona PA - 02/23/2024 9:27 [...] 0600 and on the weekends please page [phone]. * Tiffanie Owens - 02/22/2024 2:48 PM [...] d/c for 10 days. Pt was indep [employer]. He drives. He works Precautions/Special Considerations: STERNAL [...] LRAD and supervision Time IN / OUT: 4256-5226 Total Time: 30 minutes; TEFx2 Tiffanie Owens Pager: [phone] Physical Therapy Inpatient Rehabilitation Department * Romeo [...] 0600 and on the weekends please page [phone]. * Kelley Hinson, [employer] - 02/21/2024 10:15 AM EDT Physical Therapy [...] d/c for 10 days. Pt was indep [employer]. He drives. He works Precautions/Special Considerations: STERNAL [...] LRAD and supervision Time IN / OUT: 6390-4638 Total Time: 25 minutes; TEF 2 Kelley Hinson PTA Pager: [phone] Physical Therapy Inpatient Rehabilitation Department * Louisa [...] 0600 and on the weekends please page [phone]. * Kelley Hinson PTA - 02/20/2024 3:32 PM EDT 02/20/24 9949 Evaluation & Treatment Document Type contact Total Minutes, Physical Therapy 0 Comment, Session Not Performed Checked in w/ pt this PM for ongoing PT services, pt politely declined, stating he had been dealing w/ nausea all day, made plan to see him tomorrow morning, will f/u at that time Kelley Hinson PTA Pager: [phone] Physical Therapy Inpatient Rehab Department * Louisa [...] 0600 and on the weekends please page [phone]. * Maris Benavides, PT - 02/19/2024 11:22 [...] d/c for 10 days. Pt was indep [employer]. He drives. He works. Precautions/Special Considerations: STERNAL [...] CDI. Musculoskeletal: ROM: WFL Strength: B LE's / Bed Mobility: Supine ->Sit: min assist for [...] outlined inthis evaluation. MARIS BENAVIDES, PT Pager: [phone] Physical Therapy Inpatient Rehabilitation Department Time IN / OUT: 3234-9428 Total Time: 38 (eval) minutes; * Antonio [...] dressing CDI. Saphenectomy site CDI Tubes/Lines/Drains: TPW, Delaney Assessment/Plan: 63 y.o. male 2 Days Post-Op [...] eye drops BPH Home Flomax 0.4' Dc delaney Dispo: Floor Discussed with attending surgeon on rounds this morning. 02/19/2024 Between the hours of 1800 - 0600 and on the weekends please page [phone]. * Minnie Begum PA - 02/18/2024 8:25 [...] site CDI with SANJANA wrap Tubes/Lines/Drains: RIJ/PAC, [place], Jacky Ctx, L pleural CT, TPW, Delaney Assessment/Plan: 63 y.o. male 1 Day Post-Op [...] drops BPH Restart home Flomax 0.4' Keep Delaney today Dispo: [facility], Full Code, Transfer Discussed with attending surgeon on rounds this morning. GILLIAN Garcia 02/18/2024 Between the hours of 1800 - 0600 and on the weekends please page [phone]. * Kim Ha RCP - 02/17/2024 2:25 [...] plan since last visit. Hayder Graham MD [phone] Source Note - Hayder Graham MD - [...] insufficiency. He has glaucoma. He used to [employer] until about 15 years ago. He has [...] given written informed consent. Hayder Graham MD [phone] * Hayder Graham MD - 02/17/2024 7:00 [...] given written informed consent. Hayder Graham MD [phone] documented in this encounter Miscellaneous Notes * [...] information for follow-up Home Health & Hospice, [address] [place] [address] Cardiac Rehab, [address] [place] [address] Transportation: family or friend will provide Functional status prior to admission: Independent Home Environment: Others in the home: alone. Current Living Arrangements: home/apartment/condo. Accessibility Concerns:a few steps to enter 1 floor home. Current Functional Ability: Assistive Person and Equipment DME used at home: none DME Needed at Discharge: N/A Patient is insured through: Primary Insurance: [facility] Payor: [facility] / Plan: [facility] PPO / Product Type: *No [...] pain managed with scheduled Tylenol. Worked with [employer]. Ambulated in the roque multiple times during [...] anticipated Patient is insured through: Primary Insurance: [employer] Payor: [employer] / Plan: [facility] PPO / Product Type: *No Product type* / Secondary Insurance: N/A Last Physical Therapy Recommendation: home with home health (Str coming to stay for a week or two upon d/c) with to be determined (owns rolling walker, shower seat) Plan for discharge is: Home w/ Services Outpatient Agency/Support Group Needs: Homecare agency Home Health Services: Physical Therapy, Registered Nurse Agency Referrals: [facility]. [address] [place] [id number] Transportation: family or friend will provide Barriers to discharge: Discharge planning Plan going forward: Service Care Management will continue to follow and assist with discharge planning and coordination of care as indicated. Anticipated Date of Discharge: 02/22/2024 Rhett Bell RN RN/CM - Cellphone: [phone] Pager: [phone] Covering Service RN/CM * Plan of Care [...] PT. Up to chair in the morning. Delaney pulled. External pacer set at VVI rate [...] Yang RN - 02/19/2024 10:44 AM EDT [facility] Karlos Garcia was seen today regarding participation in the outpatient Phase 2 Cardiac Rehabilitation at [facility]. The patient agrees to a referral to [...] Hypertension 08/14/2023 Nevus of face 09/26/2023 Right holiness Hospitalizations Within the Past 30 Days: no previous admission in last 30 days Current Decision-Making Capacity: Self If AD's have not been completed the following surrogate would be surrogate decision maker per [place] surrogate decision making law. (Only good for 180 days) Any patient receiving care in [place] must abide by [place] law. The hierarchy for surrogate decision making [...] (i) The agent with financial power of tax associate attorney or a conservator appointed in accordance [...] steady place to sleep or slept in located within [facility] (including now)?: No In the past 12 months has the Interventional Imaging, gas, oil, or water Buz threatened to shut off services in your [...] Home Address confirmed as: [address] [facility] [address] Physical address: [address] [facility], [address] Social & Family Supports: All names listed [...] Information: none noted Health/Prescription Coverage: Primary Insurance: [facility] Payor: [facility] / Plan: [facility] PPO / Product Type: *No Product type* / Secondary Insurance: N/A ; Prescription Coverage: Yes Preferred Pharmacy: [id number] AT [address] [address] Status: Patient is a : No Primary Care Provider confirmed: Aparna Jordan, FUNCTIONAL MANAGER [phone] Patient/Caregiver Goals of Treatment: dc to home Potential Needs for Transition of Care: home health care Agency Referrals: I have met with the patient to: discuss discharge planning needs. provide the [facility] Office of Care Management letter from the [employer] Agriculture Teacher pertaining to rehab referrals. provide a letter describing our affiliations within the [facility] and educate about their right to choose where referrals are sent. provide a list of Home Health Agencies / Durable Medical Equipment vendors which serve their preferred geographic area. provided patient with [facility] Star Quality Rating handout. They have requested referrals to: [facility] [address] [place] [address] Note routed to a Transcribing Machine Operator who will communicate referrals to facilities and [...] care planning. Reina Greene RN CM, BSN, CMGT- Ext [phone] * Plan of Care - Binta Trinidad [...] Operative Note Patient Name: Karlos Garcia : [id number] MR#: [id number] Case Date: 02/17/2024 Surgeon: Surgeon(s) and Role: * Hayder Graham MD - Primary * Neftali Menon PA - Physician Die Cutter Diamond Preoperative diagnosis: CAD Postoperative diagnosis: CAD, intraoperative [...] mL Drains: Mediastinal and Left pleural Disposition: [facility] Condition: doing well without problems Attestation: Case Date: 02/17/2024 I performed this procedure without the involvement of a resident. HAYDER GRAHAM MD 02/17/2024 * Op Note - Hayder Graham MD - 02/17/2024 8:20 AM EDT [facility] Operative Note Patient Name: Karlos Garcia : [id number] MR#: [id number] Case Date: 02/17/2024 Surgeon: Surgeons and Role: * Hayder Graham MD - Primary * Neftali Menon PA - Physician Die Cutter Diamond Preoperative diagnosis: CAD Postoperative diagnosis: CAD, intraoperative [...] mL Drains: Mediastinal and Left pleural Disposition: [facility] Procedure Description: The patient was brought to [...] 3:00 PM EST Office Visit Cardiology at [address] [place] [address] Neftali Ernandez MD [facility] [place] [address] Scheduled Orders Name Type Priority Associated Diagnoses [...] Aortic Valve Open W Cardiopulmonary Bypass Homogrf/Stent (39383) Yes 02/17/2024 7:28 AM EDT CAD Cabg, Artery-Vein, Two (92329) Yes 02/17/2024 7:28 AM EDT CAD Cabg, Arterial, Single (96047) Yes 02/17/2024 7:28 AM EDT CAD Endoscopy W/Video-Asst Vein [place], Cabg (81854) Yes 02/17/2024 7:28 AM EDT CAD POCT [...] ORDERABLE S [facility] [place] [address] * (ABNORMAL) Basic Metabolic Panel (non-fasting) (02/23/2024 [...] CHEMISTRY ORDERABLES [facility] [place] [address] * Potassium (02/22/2024 4:30 AM EDT) Potassium [...] ORDERABLE S [facility] [place] [address] * (ABNORMAL) Basic Metabolic Panel (non-fasting) (02/21/2024 [...] Carpio MD CHEMISTRY ORDERABLES Performing Organization Address City/[facility]/ZIP Co de Phone Number [facility] [place] [address] * Lactate, whole blood, send to lab ([facility]) (02/21/2024 9:45 AM EDT) [facility] Lactate WB 2.0 0.5 - 2.2 mmol/L [facility] Blood 02/21/2024 9:45 AM EDT 02/21/2024 9:52 AM EDT Narrative Resulting Agency Comment Spec In Lab Hayder Graham MD CHEMISTRY ORDERABLE S Performing Organization Address City/[facility]/ZIP Co de Phone Number [facility] [place] [address] * (ABNORMAL) Hepatic Function Panel (02/21/2024 9:45 AM EDT) [facility] Protein, Total 5.7(L) 6.1 - 8.0 [...] MD CHEMISTRY ORDERABLE S Performing Organization Address City/[facility]/ZIP Co de Phone Number [facility] [place] [address] * Lipase (02/21/2024 9:45 AM EDT) Lipase 56 0 - 60 unit/L [facility] Blood 02/21/2024 9:45 AM EDT 02/21/2024 9:52 AM EDT Narrative Resulting Agency Comment Spec In Lab Hayder Graham MD CHEMISTRY ORDERABLE S Performing Organization Address [facility] Co de Phone Number [facility] [place] [address] * Amylase (02/21/2024 9:45 AM EDT) Amylase 69 28 - 100 unit/L [facility] Blood 02/21/2024 9:45 AM EDT 02/21/2024 9:52 AM EDT Narrative Resulting Agency Comment Spec In Lab Hayder Graham MD CHEMISTRY ORDERABLE S Performing Organization Address [facility] Co de Phone Number [facility] [place] [address] * Potassium (02/21/2024 3:08 AM EDT) Potassium 3.8 3.5 - 5.0 mmol/L [facility] [...] ORDERABLE S [facility] [place] [address] * XR Chest PA & Lateral (Generic) (02/20/2024 10:19 AM EDT) WORKSTATION ID [id number] RAD Anatomical Region Laterality Modality Chest N/A Digital Radiogra phy Impressions 02/20/2024 1:11 PM EDT Small pleural effusions. No pneumothorax Thank you for letting us participate in the care of this patient. ??If you are a health care provider and have any questions regarding this report, please contact the number below. ??For patients who have questions please contact the health daycare manager that requested your imaging first. ? Electronically signed by: Rogerio Cruz MD, [facility] ??([phone]), at 02/20/2024 1:11 PM Narrative 02/20/2024 1:11 PM EDT EXAMINATION: XR CHEST PA AND LATERAL (GENERIC) CLINICAL HISTORY: s/p AVR/CABGx3 TECHNIQUE: PA and lateral views of the chest COMPARISON: 02/17/2024 FINDINGS: Support devices: Interval removal of Grapevine-Kaila catheter, endotracheal tube and mediastinal chest tubes The cardiac silhouette is stable status post median sternotomy, CABG and aortic valve replacement. There are small pleural effusions. No pneumothorax. Procedure Note Rogerio Cruz MD - 02/20/2024 EXAMINATION: XR CHEST PA AND LATERAL (GENERIC) CLINICAL HISTORY: s/p AVR/CABGx3 TECHNIQUE: PA and lateral views of the chest COMPARISON: 02/17/2024 FINDINGS: Support devices: Interval removal of Grapevine-Kaila catheter, endotracheal tubeand mediastinal chest tubes The [...] patients who have questions please contactthe health daycare manager that requested your imaging first. Hayder Graham MD IMG DX ORDERABLES * Scan, Peripheral Blood (02/20/2024 4:23 AM EDT) Pathologist [facility] Plat estimate Decreased [facility] RBC Morphology Normal [facility] Blood 02/20/2024 4:23 AM EDT 02/20/2024 4:42 AM EDT Narrative Resulting Agency Comment Spec In Lab Minnie FRENCH HEMATOLOGY CECILIO ALEMAN Performing Organization Address City/State/[facility] Co de Phone Number [facility] [place] [address] * (ABNORMAL) Differential, Automated (02/20/2024 4:23 AM EDT) [facility] Neutrophil % 81.7 % [facility] Neutrophil Absolute 10.37(H) 1.70 - 6.10 x10(3)/mc L [facility] Lymph % 7.4 % [facility] Lymphocytes Abs 0.9 0.9 - 3.2 x10(3)/mc L [facility] Monocyte % 9.7 % [facility] Monocyte Abs 1.2(H) 0.3 - 0.9 x10(3)/mc L [facility] Eos % 0.1 % [facility] Eosinophils Abs 0.0 0.0 - 0.4 x10(3)/[facility] Basophil % 0.2 % [facility] Baso Absolute 0.0 0.0 - 0.1 x10(3)/[facility] Immature Gran % 0.90 % [facility] Comment: Immature granulocytes(IG's)percentage and absolute count will include metamyelocytes, myelocytes, and promyelocytes. Blood smears from CBCs yielding IG's will be scanned manually for concordance. If this scan disagrees with the automated IG or if promyelocytes are noted, a manual differential will be performed. Immature Gran Absolute 0.12(H) 0.00 - 0.04 x10(3)/[facility] Blood 02/20/2024 4:23 AM EDT 02/20/2024 4:42 AM EDT Narrative Resulting Agency Comment Spec In Lab Minnie FRENCH HEMATOLOGY CECILIO ALEMAN [facility] [place] [address] * (ABNORMAL) Hemogram (02/20/2024 4:23 AM EDT) White Blood Cell 12.7(H) 4.0 - 9.5 x10(3)/[facility] Red Blood Cell 4.26(L) 4.58 - 5.54 x10(6)/[facility] Hemoglobin 12.3(L) 13.7 - 16.5 [...] CECILIO ALEMAN [facility] [place] [address] * (ABNORMAL) Basic Metabolic Panel (non-fasting) (02/20/2024 [...] MD CHEMISTRY ORDERABLE S Performing Organization Address [facility] Co de Phone Number [facility] [place] [address] * Potassium (02/19/2024 3:57 AM EDT) [facility] Potassium 4.3 3.5 - 5.0 mmol/L [place] [...] MD CHEMISTRY ORDERABLE S Performing Organization Address [facility]/ZIP Co de Phone Number [facility] [place] [address] * POCT Glucose (02/18/2024 8:24 AM EDT) Glucose, POC 157 65 - 199 mg/dL [facility] Comment: Supplemental ranges: <140 mg/dL before meals <180 mg/dL all other times of the day Blood 02/18/2024 8:24 AM EDT 02/18/2024 8:24 AM EDT Hayder Graham MD POINT OF CARE TEST ORDERABLES Performing Organization Address City/[facility]/ZIP Co de Phone Number [facility] [place] [address] * Scan, Peripheral Blood (02/18/2024 1:40 AM EDT) [facility] Plat estimate Decreased [facility] RBC Morphology Normal [facility] Blood 02/18/2024 1:40 AM EDT 02/18/2024 1:56 AM EDT Narrative Resulting Agency Comment Spec In Lab Neftali FRENCH HEMATOLOGY ORDER OLE Performing Organization Address City/[facility]/ZIP Co de Phone Number [facility] [place] [address] * (ABNORMAL) Differential, Automated (02/18/2024 1:40 AM EDT) [facility] Neutrophil % 87.1 % [facility] Neutrophil Absolute 15.03(H) 1.70 - 6.10 x10(3)/mc L [facility] Lymph % 3.0 % [facility] Lymphocytes Abs 0.5(L) 0.9 - 3.2 x10(3)/mc L [facility] Monocyte % 9.1 % [facility] Monocyte Abs 1.6(H) 0.3 - 0.9 x10(3)/mc L [facility] Eos % 0.0 % [facility] Eosinophils Abs 0.0 0.0 - 0.4 x10(3)/mc L [facility] Basophil % 0.2 % [facility] [...] ORDER OLE [facility] [place] [address] * (ABNORMAL) Hemogram (02/18/2024 1:40 AM EDT) White Blood Cell 17.2(H) 4.0 - 9.5 x10(3)/ L [facility] Red Blood Cell 4.71 4.58 - 5.54 x10(6)/mc L [facility] Hemoglobin 13.7 13.7 - 16.5 g/dL [facility] Hematocrit 39.2(L) 40.5 - 48.5 % [facility] Mean Cell Volume 83.2 82.9 - 93.1 fL [facility] Mean Cell Hemoglobin 29.1 27.5 - 32.1 pg [facility] Mean Cell Hemoglobin Concentration 34.9 32.0 - 35.7 g/dL [facility] Platelet 147 145 - 357 x10(3)/mc L [facility] RDW Standard Deviation 39.9 36.0 - 45.0 fL [facility] RDW coefficient of variation 13.2 11.4 - 13.8 % [facility] Mean Platelet Volume 9.9 7.6 - 12.9 fL [facility] NRBC% auto 0.0 % [facility] NRBC Absolute 0.000 0.000 - 0.000 x10(3)/mc L [facility] Blood 02/18/2024 1:40 AM EDT 02/18/2024 1:56 AM EDT Narrative Resulting Agency Comment Spec In Lab Neftali FRENCH HEMATOLOGY ORDER OLE [facility] [place] [address] * (ABNORMAL) Basic Metabolic Panel (non-fasting) (02/18/2024 [...] ORDERABLE S [facility] [place] [address] * (ABNORMAL) Troponin (02/18/2024 1:40 AM EDT) [...] troponin value can be found in the [facility] Test Catalog Troponin - [facility] Test Catalog Reference: Fourth [place] Definition of Myocardial Infarction. Journal of the [place] [employer] 2018;72:5392-8545 Blood 02/18/2024 1:40 AM EDT 02/18/2024 1:56 AM EDT Narrative Resulting Agency Comment Spec In Lab Hayder Graham MD CHEMISTRY ORDERABLE S [facility] [place] [address] * POCT Glucose (02/17/2024 8:13 PM EDT) Glucose, POC 142 65 - 199 mg/dL [facility] Comment: Supplemental ranges: <140 mg/dL before meals <180 mg/dL all other times of the day Blood 02/17/2024 8:13 PM EDT 02/17/2024 8:13 PM EDT Hayder Graham MD POINT OF CARE TEST ORDERABLES Performing Organization Address [facility]/ZIP Co de Phone Number [facility] [place] [address] * POCT Glucose (02/17/2024 5:42 PM EDT) Glucose, POC 160 65 - 199 mg/dL [facility] Comment: Supplemental ranges: <140 mg/dL before meals <180 mg/dL all other times of the day Blood 02/17/2024 5:42 PM EDT 02/17/2024 5:42 PM EDT Hayder Graham MD POINT OF CARE TEST ORDERABLES Performing Organization Address City/[facility]/ZIP Co de Phone Number [facility] [place] [address] * Hemoglobin (02/17/2024 5:42 PM EDT) Hemoglobin 13.7 13.7 - 16.5 g/dL [facility] Blood 02/17/2024 5:42 PM EDT 02/17/2024 6:10 PM EDT Narrative Resulting Agency Comment Spec In Lab Hayder Graham MD HEMATOLOGY ORDERABL ES Performing Organization Address [facility] Co de Phone Number [facility] [place] [address] * Potassium (02/17/2024 5:42 PM EDT) Potassium [...] MD CHEMISTRY ORDERABLE S Performing Organization Address [facility] de Phone Number [facility] [place] [address] * (ABNORMAL) BLOOD GAS 2 ARTERIAL (02/17/2024 [...] [facility] FIO2 Art 40 % [facility] PF Ratio Art 195 [facility] Blood 02/17/2024 4:18 PM EDT 02/17/2024 4:18 PM EDT Hayder Graham MD POINT OF CARE TEST ORDERABLES Performing Organization Address City/State/[facility] Co de Phone Number [facility] [place] [address] * XR Chest One View (02/17/2024 1:44 PM EDT) WORKSTATION ID [id number] RAD Anatomical Region Laterality Modality Chest N/A Digital Radiogra phy Impressions 02/17/2024 2:12 PM EDT 1. ??No definite pleural fluid collection or pneumothorax. 2. ??Right IJ Grapevine-Kaila catheter tip terminates in a descending branch of the right pulmonary artery. Suggest catheter retraction. 3. ??Additional support lines and tubes as above. Thank you for letting us participate in the care of this patient. ??If you are a health care provider and have any questions regarding this report, please contact the number below. ??For patients who have questions please contact the health daycare manager that requested your imaging first. ? Electronically signed by: Denzel Hankins MD, [facility] ??([phone]), at 02/17/2024 2:12 PM Narrative 02/17/2024 2:12 PM EDT EXAMINATION: XR CHEST ONE VIEW CLINICAL HISTORY: s/p avr/cabg eval effusions TECHNIQUE: 1 view of the chest COMPARISON: Chest x-ray 01/09/2024, chest CT 02/03/2024 FINDINGS: ET tube tip terminates 5.2 cm above the carlos. Right IJ Grapevine-Kaila catheter tip terminates in a descending branch [...] 5.2 cm above the carlos. Right IJ Grapevine-Ganzcatheter tip terminates in a descending branch of [...] fluid collection or pneumothorax. 2. Right IJ Grapevine-Kaila catheter tip terminates in a descending branch ofthe right pulmonary artery. Suggest catheter retraction. 3. Additional support lines and tubes as above. Thank you for letting us participate in the care of this patient. If youare a health care provider and have any questions regarding this report,please contact the number below. For patients who have questions please contactthe health daycare manager that requested your imaging first. Electronically signed by: Denzel Hankins MD, [facility]([phone]), at 02/17/2024 2:12 PM Hayder Graham MD [...] MEDICAL [facility]ENTER [facility] FIO2 Art 100 % [facility] PF Ratio Art 320 [facility] Blood 02/17/2024 1:31 PM EDT 02/17/2024 1:31 PM EDT Hayder Graham MD POINT OF CARE TEST ORDERABLES Performing Organization Address City/State/[facility] Co de Phone Number [facility] [place] [address] * (ABNORMAL) Coox2 (02/17/2024 1:21 PM EDT) pO2, Coox 44 mmHg [facility] Hgb Blood Gas 13.1(L) [...] TEST ORDERABLES [facility] [place] [address] * (ABNORMAL) BLOOD GAS 2 ARTERIAL (02/17/2024 [...] OF CARE TEST ORDERABLES Performing Organization Address [facility] de Phone Number [facility] [place] [address] * (ABNORMAL) Fibrinogen (02/17/2024 12:10 PM EDT) [...] MD HEMATOLOGY ORDERABLE S Performing Organization Address [facility] Co de Phone Number [facility] [place] [address] * (ABNORMAL) Thrombin time (02/17/2024 12:10 PM [...] MD HEMATOLOGY ORDERABLE S Performing Organization Address [facility] de Phone Number [facility] [place] [address] * APTT (02/17/2024 12:10 PM EDT) Partial [...] MD HEMATOLOGY ORDERABLE S Performing Organization Address [facility] de Phone Number [facility] [place] [address] * (ABNORMAL) Prothrombin Time (02/17/2024 12:10 PM [...] ORDERABLE S [facility] [place] [address] * (ABNORMAL) Hemogram (02/17/2024 12:10 PM EDT) [...] ORDERABLE S [facility] [address] [place] [address] * (ABNORMAL) BLOOD GAS 2 ARTERIAL (02/17/2024 [...] [facility] Comment: Noted by instrument designer. Please note: Patients with WBC >100,000 may [...] TEST ORDERABLES [facility] [place] [address] * (ABNORMAL) BLOOD GAS 2 ARTERIAL (02/17/2024 [...] [facility] Comment: Noted by instrument designer. Please note: Patients with WBC >100,000 may [...] OF CARE TEST ORDERABLES Performing Organization Address City/[facility]/ZIP [place] [address] * (ABNORMAL) Hemoglobin and Hematocrit, blood (02/17/2024 [...] ORDERABL ES [facility] [place] [address] * (ABNORMAL) Platelet count (02/17/2024 11:04 AM EDT) Platelet 106(L) 145 - 357 x10(3)/mc L [facility] Immature Plt % 1.6 0.0 - 7.4 % [facility] Comment: Limitation of the Immature Platelet Fraction (IPF)-May be less reliable when the platelet count is less than 59d628/uL due to statistical imprecision. The IPF value [...] in a decreased state of production. References: [employer] The Clinical Value of the Immature Platelet Fraction (IPF) in Cell Recovery Document Number [id number] 03/2011 [employer] The Role of the Immature Platelet Fraction (IPF) in the Differential Diagnosis of Thrombocytopenia, Document [id number] V002/15/14 P014 Blood 02/17/2024 11:0 4 AM EDT 02/17/2024 11:12 AM EDT Narrative Resulting Agency Comment Spec In Lab Hayder Graham MD HEMATOLOGY ORDERABL ES [facility] [place] [address] * (ABNORMAL) Fibrinogen (02/17/2024 11:04 AM EDT) Pathologist [facility] Fibrinogen 149(L) 200 - 393 mg/dL [place] [...] ORDERABL ES [facility] [place] [address] * (ABNORMAL) BLOOD GAS 2 ARTERIAL (02/17/2024 [...] City/State/[facility] Co de Phone Number [facility] [place] [address] * (ABNORMAL) BLOOD GAS 2 ARTERIAL (02/17/2024 [...] City/State/[facility] Co de Phone Number [facility] [place] [address] * Surgical Pathology Report (02/17/2024 10:01 AM EDT) Final Diagnosis [id number] ? Location: [facility]; [facility]; The signing pathologist has (i) examined the relevant preparation(s) for the specimen(s) and (ii) rendered or confirmed the diagnosis(es). . ?Surgical Pathology DIAGNOSIS Aortic valve leaflets, excision: Valve leaflets with myxoid degeneration, nodular fibrosis and dystrophic calcifications. Electronically signed by: ?Livier Montoya MD Verified: ??02/24/2024 13:49 ??Pathologist Performed at: ??-[facility] [place], [place] [address] [employer] Teacher: Job Brewer MD, FCAP, ??CLIA Certificate: [id number] SPECIMEN(S) SUBMITTED A - Aortic Valve Leaflets, [...] Sections Processing Blocks submitted for decalcification: A1. Web Design Intern sections in 1 cassette labeled A1. ??ajw 02/24/2024 1:49 PM EDT [facility] AORTIC STRUCTURE / Unknown 02/17/2024 10:01 AM EDT 02/17/2024 10:01 AM EDT Hayder Graham MD PATHOLOGY/CYTOLOGY ORDERABLES Performing Organization Address City/[facility]/ZIP Co de Phone Number [facility] [place] [address] * Specimen to Pathology (02/17/2024 10:01 AM EDT) AP Specimen 02/17/2024 10:0 1 AM EDT 02/17/2024 10:01 AM EDT Narrative [facility] - 02/17/2024 10:01 AM EDT Specimen requisition ordered. ??Separate Pathology report to follow Hayder Graham MD PATHOLOGY/CYTOLOGY ORDERABLES Performing Organization Address [facility]/ZIP Co de Phone Number [facility] [place] [address] * (ABNORMAL) BLOOD GAS 2 ARTERIAL (02/17/2024 [...] TEST ORDERABLES [facility] [place] [address] * (ABNORMAL) BLOOD GAS 2 VENOUS (02/17/2024 9:34 AM EDT) pH, Venous 7.22(Criti marquez) 7.32 - 7.42 [facility] Comment:Noted by instrument designer. PCO2, Venous 43 41 - 51 mmHg [facility] Comment:Noted by instrument designer. PO2, Venous 57(H) 25 - 40 mmHg [facility] Comment:Noted by instrument designer. Bicarbonate, Venous 17.1 mmol/L [facility] Comment:Noted by instrument designer. Base Excess, Venous -10.6 mmol/L [facility] Comment:Noted by instrument designer. Hgb Blood Gas 11.2(L) 13.7 - 16.5 g/dL [facility] Comment:Noted by instrument designer. Oxyhemoglobin, Venous 86.5 % [facility] Comment:Noted by instrument designer. Carboxyhemoglob in, Venous 0.3 % [facility] Comment: Noted by instrument designer. Nonsmokers: 0.5-1.5% COHB Smokers: Variable, but usually less than 10% Toxic: 20-30% COHB Lethal: Greater than 60% COHB Methemoglobin, Venous 0.0 <=1.5 % [facility] Comment:Noted by instrument designer. Na Whole Blood 156(H) 135 - 145 mmol/L [facility] Comment:Noted by instrument designer. K Whole Blood 5.5(H) 3.5 - 5.0 mmol/L [facility] Comment: Noted by instrument designer. Please note: Patients with WBC >100,000 may have falsely elevated Potassium levels. Contact the Clinical Chemistry Laboratory if there are any questions. ICa Whole Blood 1.03(L) 1.15 - 1.33 mmol/L [facility] Comment: Noted by instrument designer. Note: ??Total bilirubin higher than 20 mg/dL may lead to falsely low ionized calcium. CL Whole Blood 100 98 - 107 mmol/L [facility] Comment:Noted by instrument designer. Gluc Whole Bld 132 65 - 199 mg/dL [facility] Comment: Noted by instrument designer. Diabetes: >=200 mg/dL plus symptoms Lactate WB 1.0 0.5 - 2.2 mmol/L [facility] Comment:Noted by instrument designer. Blood Gas Source Venous [facility] Blood 02/17/2024 9:34 AM EDT 02/17/2024 9:34 AM EDT Hayder Graham MD POINT OF CARE TEST ORDERABLES [facility] [place] [address] * (ABNORMAL) BLOOD GAS 2 ARTERIAL (02/17/2024 [...] OF CARE TEST ORDERABLES Performing Organization Address [facility] Co de Phone Number [facility] [place] [address] * POCT Glucose (02/17/2024 6:38 AM EDT) Glucose, POC 98 65 - 199 mg/dL [facility] Comment: Supplemental ranges: <140 mg/dL before meals <180 mg/dL all other times of the day Blood 02/17/2024 6:38 AM EDT 02/17/2024 6:38 AM EDT Hayder Graham MD POINT OF CARE TEST ORDERABLES Performing Organization Address [facility] Co de Phone Number [facility] [place] [address] * Transesophageal Echo/OR (02/17/2024 6:33 AM EDT) [...] [facility]operative [facility] of cardiac function [...] in this encounter Visit Diagnoses Diagnosis Aortic valve stenosis, etiology of cardiac valve disease unspecified S/P AVR Heart valve replaced by other means Aortic stenosis Aortic valve disorders documented in this encounter Admitting Diagnoses Diagnosis [...] 6 hours upon arrival to Unit. Give UT if unable to take PO, Routine Given [...] dose on Sat02/17/24 at 1400, Until Discontinued, [place] teeth and / or gums. Scan the CHG vial in the [employer] Q-Care Oral Care Kit from floor stock. Ventilator-associated pneumonia prophylaxis For use in ICU/Critical care locations ONLY. Obtain kit from Floor Stock location. Scan CHG vial in the [employer] Q-Care Oral Care Kit, Routine Given 02/17/2024 [...] restart at 50% of previous rate. Call head housekeeper if goal not achieved at maximum [...] PHENYLephrine and/or vasopressin ineffective. Call pager # [phone] if initiated. Titrate to keep systolic blood [...] Intravenous, EVERY 6 HOURS PRN, Starting on Sat02/20/24 at 1120, Until Sat02/20/24 at 1355, Nausea, [...] 2.0 L/min/M2. Maximum volume 2 L. Call head housekeeper for additional fluid orders: pager #[phone]. Rate/Dose Verify 02/18/2024 8:00 AM EDT 1 mL/hr 1 mL/hr Rate/Dose Verify 02/18/2024 6:00 AM EDT 1 mL/hr 1 mL/hr Rate/Dose Verify 02/18/2024 4:00 AM EDT 1 mL/hr 1 mL/hr sodium chloride 0.9% infusion 10-30 mL/hr, Intravenous, DAILY PRN, Starting on Sat02/17/24 at 1307, Until Sat02/18/24 at 0835, Side port TKO rate, per [facility] nursing protocol. Rate/Dose Verify 02/17/2024 8:00 PM EDT 30 mL/hr 30 mL/hr Rate/Dose Verify 02/17/2024 6:00 PM EDT 30 mL/hr 30 mL/h r Rate/Dose Verify 02/17/2024 5:00 PM EDT 30 mL/hr 30 mL/h r sodium chloride 0.9% infusion 10-30 mL/hr, Intravenous, DAILY PRN, Starting on Sat02/17/24 at 1307, Until Sat02/18/24 at 0835, Side port TKO rate, per [facility] nrusing protocol. Rate/Dose Verify 02/18/2024 8:00 AM [...] RN)2056 (Given - Provider: Polo Britton RN) 906 (Given - Provider: Mishel Merrill, COLBY)2114 (Given - Provider: Otis Crook RN) 0836 [...] Britton RN) 907 (Given - Provider: Mishel Merrill, COLBY)2116 (Given - Provider: Otis Crook RN) 0843 (Given - Provider: Jazlyn Maldonado RN) dorzolamide (Trusopt) 2 % ophthalmic solution 1 drop 1 drop, Both Eyes, 3 TIMES DAILY, First dose on Sat02/18/24 at 0930, Until Discontinued, Routine 0824 (Given - Provider: Reilly Vincent RN)1408 (Given - Provider: Ingrid Menjivar COLBY)2056 (Given - Provider: Polo Britton RN) 09 [...] SBP<90, Routine 0911 (Given - Provider: Mishel Merrill RN)2114 (Given [...] 1 dose, On Sat02/22/24 at 1000, Routine 1002 (Given - Provider: [...] Menjivar RN)1001 (New Bag - Provider: Ingrid Menjivar, COLBY)1201 (Stopped - Provider: Reilly Vincent RN) senna-docusate (Pericolace) 8.6-50 mg per tablet 2 tablet 2 tablet, Oral, DAILY, First dose on Sat02/18/24 at 2100, Until Discontinued, Post-op day 1, Routine 2055 (Not Given - Provider: Polo Britton RN - Reason: Patient/family refused) 2099 (Not Given - Provider: Otis Crook RN - Reason: Patient/family refused) sodium chloride 0.9 % (flush) (BD PosiFlush Normal Saline 0.9) flush 5 mL 5 mL, Intravenous, EVERY 8 HOURS, First dose on Sat02/18/24 at 0930, Until Discontinued, Routine 013 (Given - Provider: Polo Britton RN)0930 (Given - Provider: Reilly Vincent RN)1708 (Given - Provider: Ingrid Menjivar RN) 013 (Given - Provider: Polo Britton RN)0908 (Given - Provider: Misehl Merrill RN)1701 (Given - Provider: Msihel Merrill, COLBY)2325 (Given - Provider: Otis Crook [...] 10 mg, Rectal, DAILY PRN, Starting on Sat02/20/24 at 0000, Until Sat02/24/24 at 1323, Constipation, [...] Routine documented in this encounter Care Teams Hse Coordinator Relationship Specialty Start Date End Date Aparna Jordan APRN PCP - General Family Medicine 10/21/23 05/26/24 documented as of this encounter
--- OUTSIDE RECORDS SUMMARY | 2024-05-29 08:20 | XMS_ITS | Encounter Summary ---
Author Organization [facility] Address [facility] [place] [address] Care Team Providers Care Hog Scalder Name Role Phone Vanessa Christian MAURI Primary Care Provider [phone] Encounter Details Date Type Department Care Team (Latest Contact Info) Description 03/12/2024 Travel Social History Tobacco Use Types Packs/Day Years Used Date Smoking Tobacco: Former Cigarettes Smokeless Tobacco: Never Comments:Quit 15 + years ago Alcohol Use Standard Drinks/Week Comments Yes 0 (1 standard drink = 0.6 oz pur e alcohol) rare [facility] Utilities Answer Date Recorded In [...] 3:00 PM EST Office Visit Cardiology at [address] [phone] Neftali Ernandez MD [facility] [place] [address] documented as of this encounter Visit Diagnoses Not on filedocumented in this encounter Care Teams Hog Scalder Relationship Specialty Start Date End Date Vanessa Christian APRN PCP - General Family Medicine 10/21/23 05/26/24 documented as of this encounter
--- OUTSIDE RECORDS SUMMARY | 2024-05-29 08:21 | XMS_ITS | Encounter Summary ---
Author Organization [facility] [place] [address] Care Team Providers Care Fork Assembler Name Role Phone Vanessa Christian MAURI Primary Care Provider [phone] Reason for Visit * Auth/Cert (Routine) Specialty [...] W RHC (WRVU 5.9) Rima Dickinson MD [facility] [place] [place] [address] [facility] Referral ID Status Reason Start Date Expiration Date Visits Re quested Visits Authorized [id number] 1 1 Encounter Details Date Type Department Care Team (Late st Contact Info) Description 02/03/2024 10:00 AM EDT - 02/03/2024 11:00 AM EDT Surgery [place] [address] Saira Lua MD [facility] [place] [address] CARDIAC CATHETERIZATION Social History Tobacco Use Types [...] lbs Follow-up Visits Follow up with your nuisance wildlife trapper in 2-4 weeks Access Site 'Black and Blue' and tenderness is expected during the first week Call if you noted a mass (lump) greater than the size of a ellis Call Office with any Questions and if you have any of the following Clarence Lane M.D Interventional Switchbox Assembler Printed Circuit Photographer #: [phone] * Attachments The following attachments cannot be sent through Care Everywhere. * CAD (Coronary Artery Disease): General Info (Cypriot) * Coronary Angiogram: Post-op (Cypriot) documented in this encounter Medications at Time [...] 1 tablet by mouth daily. 01/29/2024 05/27/2024 chlorhexidine (HIBICLENS) 4 % Liquid Apply topically [...] Take 5 mg by mouth daily. 02/24/2024 atorvastatin (Lipitor) 10 mg tablet Take 10 mg by mouth daily. 05/27/2024 documented as of this encounter H&P Notes * Clarence Lane MD - 02/03/2024 11:48 AM EDT [facility] Interventional Cardiology Adult Pre-Procedure H&P Update: Cardiac Catheterization Karlos Anthony [id number] 1960 Chief Complaint: Aortic stenosis HPI: Mr. [...] is inthe chart Clarence Lane MD Interventional Switchbox Assembler 02/03/24 11:48 AM documented in this encounter Miscellaneous Notes * Brief Op Note - Clarence Lane MD - 02/03/2024 12:51 PM EDT Preliminary Cardiac Catheterization Procedure Note: Patient Name: Karlos Anthony : [id number] MR#: [id number] Case Date: 02/03/2024 Printed Circuit Photographer: Surgeon(s) and Role: * Saira Lua MD [...] 3:00 PM EST Office Visit Cardiology at [address] [address] Neftali Ernandez MD [facility] [place] [address] Scheduled Orders Name Type Priority Associated Diagnoses [...] Modality Other Narrative 02/12/2024 3:47 PM EDT ?[facility] ? Cardiac Catheterization/Intervention Report ? Patient Name: Patenaude, Karlos ? Procedure Date: 02/03/2024 ? A #: [id number] ? Primary Physician: Saira Lua ? Case #: [id number] ? File Name: [id number] ? Catheterization Order Number: [id number] ? [facility] ? Final Report [place], [place] ? Patient Name: ? Karlos Patenaude ? ID#: ?[id number] ? : ?1960 ? Procedure Date: ? February 03, 2024 ? Case #: ? [id number] ? Room: ? 5 ? Case Physician: ? Emad Holliem, M.D. ? Start: ?12:29 ?Fellow: ? Clarence N Domingo MAdria. ? Admission: ??02/03/2024 ? Referring Physician: ??Zak [...] Lua M.D. performed the coronary angiography. ? Emad Florian Lua. ? Electronically Signed by: Saira Lua M.D. ? Report Finalized: 02/12/2024 ??15:43 ? Procedure Note Saira Lua MD - 02/12/2024 [facility] Cardiac Catheterization/Intervention Report Patient Name: Karlos Anthony Procedure Date: 02/03/2024 A #: [id number] Primary Physician: Saira Lua Case #: [id number] File Name: [id number] Catheterization Order Number: [id number] [facility] FinalReport [place], [place] Patient Name: Karlos Anthony ID#:[id number] :1960 Procedure Date: February 03, 2024 Case [...] was designated as ASA Class III. The [facility] clinical frailty scale is 3: [...] (Bezet) 372 ms MUSE SYSTEM Calculated P [place] 59 degrees MUSE SYSTEM Calculated R [place] 34 degrees MUSE SYSTEM Calculated T [place] 63 degrees MUSE SYSTEM INTERPRETATION Sinus bradycardia [...] MD) documented in this encounter Care Teams Fork Assembler Relationship Specialty Start Date End Date Vanessa Christian APRN PCP - General Family Medicine 10/21/23 05/26/24 documented as of this encounter
--- OUTSIDE RECORDS SUMMARY | 2024-05-29 08:21 | XMS_ITS | Encounter Summary ---
Author Organization [facility] [place] [address] Care Team Providers Care Quill Picking Machine Operator Name Role Phone Vanessa Christian MAURI Primary Care Provider [phone] Encounter Details Date Type Department Care Team (Latest Contact Info) Description 01/09/2024 3:00 PM EDT Laboratory [place] [phone] Nonrheumatic aortic valve stenosis Social History Tobacco Use Types Packs/Day Years Used Date Smoking Tobacco: Former Cigarettes Smokeless Tobacco: Never Comments:Quit 15 + years ago Alcohol Use Standard Drinks/Week Comments Yes 0 (1 standard drink = 0.6 oz pur e alcohol) rare [facility] Inpatient Questions Answer Date Recorded Prevent Contact [...] 3:00 PM EST Office Visit Cardiology at [address] [phone] Neftali Ernandez MD [facility] [address] [place] [address] documented as of this encounter Procedures Procedure Name Priority Date/Time Associated Diagnosis Comments ABORH RECHECK STATUS Routine 01/09/2024 2:58 PM EDT HEMOGRAM Routine 01/09/2024 2:58 PM EDT Nonrheumatic aortic valve stenosis DIFFERENTIAL, AUTOMATED Routine 01/09/2024 2:58 PM EDT Nonrheumatic aortic valve stenosis TYPE AND SCREEN, SDP (FUTURE SURGERY, [facility] SAME DAY PROGRAM ONLY) [...] PM EDT) ABORH Recheck Order Order Placed [facility] ABORH Type Recheck Completed [facility] Blood 01/09/2024 2:58 PM EDT 01/09/2024 3:08 PM EDT Narrative Resulting Agency Comment Spec In Lab aZk Farmer MD BLOOD BANK LAB CECILIO ALEMAN [facility] [place] [address] * Differential, Automated (01/09/2024 2:58 PM EDT) Neutrophil % 70.5 % [facility] Neutrophil Absolute 4.34 1.70 - 6.10 x10(3)/[facility]OR[facility] Lymph % 18.9 % [facility] Lymphocytes Abs 1.2 0.9 - 3.2 x10(3)/[facility]OR[facility]ORY Monocyte % 8.0 % [facility] Monocyte Abs 0.5 0.3 - 0.9 x10(3)/[facility] LABORATORY Eos % 1.6 % [facility] Eosinophils Abs 0.1 0.0 - 0.4 x10(3)/[facility] LABORATORY Basophil % 0.5 % [facility] Baso Absolute 0.0 0.0 - 0.1 x10(3)/[facility] LABORATORY Immature Gran % 0.50 % [facility] Comment: Immature granulocytes(IG's)percentage and absolute count will include metamyelocytes, myelocytes, and promyelocytes. Blood smears from CBCs yielding IG's will be scanned manually for concordance. If this scan disagrees with the automated IG or if promyelocytes are noted, a manual differential will be performed. Immature Gran Absolute 0.03 0.00 - 0.04 x10(3)/[facility] LAB[facility]ATORY Blood 01/09/2024 2:58 PM EDT 01/09/2024 3:03 PM EDT Narrative Resulting Agency Comment Spec In Lab Zak Farmer MD HEMATOLOGY ORDERABL ES [facility] [place] [address] * Hemogram (01/09/2024 2:58 PM EDT) White Blood Cell 6.2 4.0 - 9.5 x10(3)/[facility] LABORATORY Red Blood Cell 5.53 4.58 - 5.54 x10(6)/[facility]ORY Hemoglobin 16.1 13.7 - 16.5 g/dL [facility] Hematocrit 46.9 40.5 - 48.5 % [facility] Mean Cell Volume 84.8 82.9 - 93.1 fL [facility] Mean Cell Hemoglobin 29.1 27.5 - 32.1 pg [facility] Mean Cell Hemoglobin Concentration 34.3 32.0 - 35.7 g/dL [facility] Platelet 187 145 - 357 x10(3)/[facility] LABORATORY RDW Standard Deviation 39.2 36.0 - 45.0 fL [facility] RDW coefficient of variation 12.6 11.4 - 13.8 % [facility] Mean Platelet Volume 9.5 7.6 - 12.9 fL [facility] NRBC% auto 0.0 % [facility] NRBC Absolute 0.000 0.000 - 0.000 x10(3)/[facility] Blood 01/09/2024 2:58 PM EDT 01/09/2024 3:03 PM EDT Narrative Resulting Agency Comment Spec In Lab Zak Farmer MD HEMATOLOGY ORDERABL ES [facility] [place] [address] * Basic Metabolic Panel (non-fasting) (01/09/2024 2:58 [...] CHEMISTRY ORDERABLE S [facility] [place] [address] * Hepatic Function Panel (01/09/2024 2:58 PM [...] MD CHEMISTRY ORDERABLE S Performing Organization Address [facility] Co de Phone Number [facility] [place] [address] * Prothrombin Time (01/09/2024 2:58 PM EDT) [...] MD HEMATOLOGY ORDERABL ES Performing Organization Address [facility] Co de Phone Number [facility] [place] [address] * Type and Screen Future Surgery, [facility] SAME DAY PROGRAM ONLY) [...] BANK LAB ORDE RABLES Performing Organization Address City/[facility]/[place] [address] documented in this encounter Visit Diagnoses Diagnosis Nonrheumatic aortic valve stenosis Aortic valve disorders documented in this encounter Care Teams Quill Picking Machine Operator Relationship Specialty Start Date End Date Vanessa Christian APRN PCP - General Family Medicine 10/21/23 05/26/24 documented as of this encounter
--- OUTSIDE RECORDS SUMMARY | 2024-05-29 08:21 | XMS_ITS | Encounter Summary ---
Author Organization [facility] [place] [address] Care Team Providers Care Roving Department End Finder Name Role Phone Vanessa Christian Lane DOTSON Primary Care Provider [phone] Reason for Referral * Diagnostic Test (Routine) - Closed Specialty Diagnoses / Procedures Referred By Contac t Referred To Contact Radiology Diagnoses Nonrheumatic aortic valve stenosis Procedures CT Chest wo Contrast (Generic) Louisa Cho PA [facility] DR C[place]IOTHORAC[place] [address] [facility] [place] [address] Referral ID Status Reason Start Date Expiration Date V isits Requested Visits Authorized [id number] Closed Specialty Service Requested 01/10/2024 07/11/2025 1 1 Reason for Visit * Diagnostic Test (Routine) - Closed Specialty Diagnoses / Procedures Referred By Contac t Referred To Contact Radiology Diagnoses Nonrheumatic aortic valve stenosis Procedures CT Chest wo Contrast (Generic) Louisa Cho PA [facility] [place]IOTH[place]AC[place] [address] [facility] [place] [address] Referral ID Status Reason Start Date Expiration Date V isits Requested Visits Authorized [id number] Closed Specialty Service Requested 01/10/2024 07/11/2025 1 1 Encounter Details Date Type Department Care Team (Latest Contact Info) Description 02/03/2024 7:36 AM EDT - 02/03/2024 8:05 AM EDT Hospital Encounter CT Scan at [facility] [place] [address] Zak Farmer MD [facility] [place]IOTH[place] [address] Nonrheumatic aortic valve stenosis Discharge Disposition: Home Social History Tobacco Use Types Packs/Day Years Used Date Smoking Tobacco: Former Cigarettes Smokeless Tobacco: Never Comments:Quit 15 + years ago Alcohol Use Standard Drinks/Week Comments Yes 0 (1 standard drink = 0.6 oz pur e alcohol) rare [facility] Inpatient Questions Answer Date Recorded Does [...] 3:00 PM EST Office Visit Cardiology at [address] [place] [address] Neftali Ernandez MD [facility] [place] [place] [address] documented as of this encounter Procedures Procedure Name Priority Date/Time Associated Diagnosis Comments CT CHEST WO CONTRAST (GENERIC) Routine 02/03/2024 7:44 AM EDT Nonrheumatic aortic valve stenosis documented in this encounter Results * CT Chest wo Contrast (Generic) (02/03/2024 7:44 AM EDT) [employer] WORKSTATION ID [id number] DH RAD Anatomical Region Laterality Modality Chest Computed [...] questions please contact the health acute care clinical nurse specialist that requested your imaging first. ? Electronically signed by: Rogerio Wright MD, [facility] ([phone]), at 02/03/2024 10:00 AM Narrative 02/03/2024 10:00 [...] have questions please contactthe health acute care clinical nurse specialist that requested your imaging first. Electronically signed by: Rogerio Wright MD, [facility]([phone]), at 02/03/2024 10:00 AM Zak Farmer MD IMG CT ORDERABLES documented in this encounter Visit Diagnoses Diagnosis Nonrheumatic aortic valve stenosis Aortic valve disorders documented in this encounter Care Teams Roving Department End Finder Relationship Specialty Start Date End Date Vnaessa Christian APRN PCP - General Family Medicine 10/21/23 05/26/24 documented as of this encounter
--- OUTSIDE RECORDS SUMMARY | 2024-05-29 08:21 | XMS_ITS | Encounter Summary ---
Author Organization [facility] [place] [address] Care Team Providers Care Health Information Assistant Name Role Phone Vanessa Christian APRN Primary Care Provider [phone] Encounter Details Date Type Department Care Team [...] 3:00 PM EST Office Visit Cardiology at [address] [place] [phone] Neftali Ernandez MD [facility] [place] [address] documented as of this encounter Visit Diagnoses Not on filedocumented in this encounter Care Teams Health Information Assistant Relationship Specialty Start Date End Date Vanessa Christian APRN PCP - General Family Medicine 10/21/23 05/26/24 documented as of this encounter
--- OUTSIDE RECORDS SUMMARY | 2024-05-29 08:21 | XMS_ITS | Encounter Summary ---
Author Organization [facility] Ivana [facility] [place] [address] Care Team Providers Care Dressmaker Garment Fitter Name Role Phone Vanessa Christian MAURI Primary Care Provider [phone] Reason for Visit * Auth/Cert (Routine) Specialty [...] ARTERIAL GRAFT (WRVU 7.93) Zak Farmer MD [facility] [place] [address] [facility] Referral ID Status Reason Start Date Expiration Date Visits Re quested Visits Authorized [id number] 1 1 Encounter Details Date Type Department Care Team (Late st Contact Info) Description 02/17/2024 7:35 AM EDT Anesthesia Event Main Operating Room [facility] [place] [phone] Roman York MD [facility] [place] [address] Anesthesia Record Procedure Summary Procedure Name Responsible [...] to heart; 02/18/24; 92902/17/24 0000 by Driss Moncaad RN 02/18/24 0930 by Sadiq Woo RN PIV 02/17/24; 0715; zezn-bah-gbsums catheter system; 18 gauge; cephalic vein (lateral [...] oz pur e alcohol) rare [facility] Utilities Answer Date Recorded In the past 12 months has th e electric, gas, oil, or water [employer] threatened to shut off services in your [...] Procedure Summary Date: 02/17/24 Room / Location: [facility] OR [address] [place] [address] MAIN OR Anesthesia Start: 734 Anesthesia Stop: [...] include unfiled device data. Patient Location: [facility] Level of Consciousness: Sedated (Pharmacologic/Intentional) Pain [...] 08/14/2023 ??? 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 Social [...] 3:00 PM EST Office Visit Cardiology at [address] [place] [address] Neftali Ernandez MD [facility] [place] [address] documented as of this encounter Visit [...] mg documented in this encounter Care Teams Dressmaker Garment Fitter Relationship Specialty Start Date End Date Vanessa Christian APRN PCP - General Family Medicine 10/21/23 05/26/24 documented as of this encounter
--- OUTSIDE RECORDS SUMMARY | 2024-05-29 08:21 | XMS_ITS | Encounter Summary ---
Author Organization [facility] Address [facility] Ivana linareseileen [place] [id number] Care Team Providers Care Pot Fisher Name Role Phone Vanessa Christian MAURI Primary Care Provider [phone] Reason for Referral * Consultation (Routine) - Closed Specialty Diagnoses / Procedures Referred By Contac t Referred To Contact Cardiac Surgery Diagnoses Nonrheumatic aortic valve stenosis significant - TAVR ( defers to Card Surg d/t age) Errol Loya MD [facility] [place] [address] Zak Farmer MD [facility] [place] [address] Referral ID Status Reason Start Date Expiration Date V isits Requested Visits Authorized [id number] Closed Consult, Test & Treat 10/21/2023 10/20/2024 1 1 Reason for Visit * Reason Comments Chest Pain Shortness of Breath Aortic Stenosis Encounter Details Date Type Department Care Team (Late st Contact Info) Description 10/21/2023 1:20 PM EST Office Visit Cardiology at [address] [phone] Errol Loya MD [facility] [place] [address] Nonrheumatic aortic valve stenosis Social History Tobacco [...] Problem List Diagnosis Aortic stenosis 12/2022 TTE ([facility]): VITA 0.8-0.9 cm2 (MG 28 mmHg, DOI 3.6 m/s, SVI 35 cc/m2). Trace regurgitation. Normal bi-v s/f, no other valve findings Gastroesophageal reflux Nevus of face Right zoroastrian Hypertension HLD (hyperlipidemia) MEDICATIONS: Current Outpatient Medications [...] but in the meantime will refer to T at [facility] for further evaluation. Logistics and preliminary review [...] - 10/21/2023 3:47 PM EST Associated Problem(s): Nonrheumatic aortic valve stenosis due to bicuspid aortic valve, s/p SAVR 2023 Based on patient's history, it seems like he indeed has severe . However, his demographics, rapidity of worsening (had TTE in 2019 which demonstrated but mild disease) are contrary to this. Will review images personally, but in the meantime will refer to T at [facility] for further evaluation. Logistics and preliminary review of TONY were reviewed with patient. - Refer to T * Addendum Note - Errol Loya MD - 10/21/2023 1:20 PM ESTAddended by: ERROL LOYA on: 10/21/2023 03:49 PM Modules accepted: Orders documented in this encounter Plan of Treatment Upcoming Encounters Date Type Department Care Team (Late st Contact Info) Description 11/30/2024 3:00 PM EST Office Visit Cardiology at [address] [place] [phone] Errol Loya MD [facility] [place] [address] Scheduled Referrals Name Type Priority Associated Diagnoses Order Schedule Amb Referral to Structural Heart Outpatient Referral Routine Nonrheumatic aortic valve stenosis Ordered: 10/21/2023 documented as of this encounter Visit Diagnoses Diagnosis Nonrheumatic aortic valve stenosis Aortic valve disorders documented in this encounter Care Teams Pot Fisher Relationship Specialty Start Date End Date Vanessa Christian APRN PCP - General Family Medicine 10/21/23 05/26/24 documented as of this encounter
--- OUTSIDE RECORDS SUMMARY | 2024-05-29 08:21 | XMS_ITS | Encounter Summary ---
Author Organization [facility] Address [place] [address] Care Team Providers Care Prison Psychiatrist Name Role Phone Vanessa Christian HYDROGEOLOGY PROFESSOR Primary Care Provider Reason for Referral * Diagnostic Test (Routine) - Closed Specialty Diagnoses / Procedures Referred By Contac t Referred To Contact Radiology Diagnoses Nonrheumatic aortic valve stenosis Procedures CT Chest wo Contrast (Generic) Louisa Reid PA [facility] [place] [address] [facility] [place] [address] Referral ID Status Reason Start Date Expiration Date V isits Requested Visits Authorized [id number] Closed Specialty Service Requested 01/10/2024 07/11/2025 1 1 Encounter Details Date Type Department Care Team (Late st Contact Info) Description 01/09/2024 [place] [address] Zak Farmer MD [facility] [place]AC[place] [address] Nonrheumatic aortic valve stenosis Social History Tobacco [...] 3:00 PM EST Office Visit Cardiology at [address] [place] [address] Neftali Ernandez MD [facility] [place] [address] documented as of this encounter Results * CT Chest wo Contrast (Generic) (02/03/2024 7:44 AM EDT) WORKSTATION ID [id number] RAD Anatomical Region Laterality Modality Chest Computed [...] have questions please contact the health healthcare business analyst that requested your imaging first. ? Electronically signed by: Rogerio Wright MD, [facility] ([phone]), at 02/03/2024 10:00 AM Narrative 02/03/2024 10:00 [...] who have questions please contactthe health healthcare business analyst that requested your imaging first. Electronically signed by: Rogerio Wright MD, [facility]([phone]), at 02/03/2024 10:00 AM Zak Farmer MD IMG CT ORDERABLES documented in this encounter Visit Diagnoses Diagnosis Nonrheumatic aortic valve stenosis Aortic valve disorders Nonrheumatic aortic valve stenosis Aortic valve disorders documented in this encounter Care Teams Prison Psychiatrist Relationship Specialty Start Date End Date Vanessa Christian APRN PCP - General Family Medicine 10/21/23 05/26/24 documented as of this encounter
--- OUTSIDE RECORDS SUMMARY | 2024-05-29 08:21 | XMS_ITS | Encounter Summary ---
Author Organization [facility] [place] [address] Care Team Providers Care Fastener Technologist Name Role Phone Vanessa Christian APRN Primary Care Provider Encounter Details Date Type Department Care Team (Late st Contact Info) Description 10/21/2023 Abstract Cardiology at [address] [place] [phone] Adam Mayes RN Social History Tobacco Use [...] 3:00 PM EST Office Visit Cardiology at [address] [place] [address] Neftali Ernandez MD [facility] [place] [address] documented as of this encounter Visit Diagnoses Not on filedocumented in this encounter Care Teams Fastener Technologist Relationship Specialty Start Date End Date Vanessa Christian APRN PCP - General Family Medicine 10/21/23 05/26/24 documented as of this encounter
--- OUTSIDE RECORDS SUMMARY | 2024-05-29 08:21 | XMS_ITS | Encounter Summary ---
Author Organization [facility] [place] [address] Care Team Providers Care Claims Adjuster Name Role Phone Victor M Lafleur MD Primary Care Provider Encounter Details Date Type Department Care Team (Late st Contact Info) Description 09/26/2023 Abstract Cardiology at [address] [phone] Karen Billy, RN Nonrheumatic aortic [...] PM EST Office Visit Cardiology at [address] [place] [address] Neftali Ernandez MD [facility] [place] [address] documented as of this encounter Visit Diagnoses Diagnosis Nonrheumatic aortic valve stenosis Aortic valve disorders Nevus of face Benign neoplasm of skin of other and unspecified parts of face documented in this encounter Care Teams Claims Adjuster Relationship Specialty Start Date End Date Victor M Lafleur MD PCP - General 10/02/13 10/20/23 documented as of this encounter
--- OUTSIDE RECORDS SUMMARY | 2024-05-29 08:21 | XMS_ITS | Encounter Summary ---
Author Organization [facility] Address [facility] [place] [address] Care Team Providers Care Television Schedule Coordinator Name Role Phone Vanessa Christian APRN Primary Care Provider [phone] Encounter Details Date Type Department Care Team [...] 3:00 PM EST Office Visit Cardiology at [address] [place] [address] Neftali Ernandez MD [facility] [place] [address] documented as of this encounter Visit Diagnoses Not on filedocumented in this encounter Care Teams Television Schedule Coordinator Relationship Specialty Start Date End Date Vanessa Christian APRN PCP - General Family Medicine 10/21/23 05/26/24 documented as of this encounter
--- OUTSIDE RECORDS SUMMARY | 2024-05-29 08:21 | XMS_ITS | Encounter Summary ---
Author Organization [facility] [place] [address] Care Team Providers Care Wood Cabinet Finisher Name Role Phone Vanessa Christian APRN Primary Care Provider [phone] Encounter Details Date Type Department Care Team (Late st Contact Info) Description 12/26/2023 Notes Only Cardiology at [address] [phone] Neftali Ernandez MD [facility] [address] Social History Tobacco Use Types Packs/Day Years [...] PM EDT Echocardiogram images reviewed from [facility]. Indeed, the aortic valve appears severely stenotic. Cannotrule out bicuspid valve documented in this encounter Plan of Treatment Upcoming Encounters Date Type Department Care Team (Late st Contact Info) Description 11/30/2024 3:00 PM EST Office Visit Cardiology at [address] [phone] Neftali Ernandez MD [facility] [address] documented as of this encounter Visit Diagnoses Not on filedocumented in this encounter Care Teams Wood Cabinet Finisher Relationship Specialty Start Date End Date Vanessa Christian APRN PCP - General Family Medicine 10/21/23 05/26/24 documented as of this encounter
--- OUTSIDE RECORDS SUMMARY | 2024-05-29 08:21 | XMS_ITS | Encounter Summary ---
Author Organization [facility] [place] [address] Care Team Providers Care Ramp Service Employee Name Role Phone Vanessa Christian MAURI Primary Care Provider [phone] Encounter Details Date Type Department Care Team (Late st Contact Info) Description 01/10/2024 Orders Only [place] [phone] Lawson Napoles PA [facility] [place] [address] Screening for cardiovascular condition; Aortic valve stenosis, [...] 3:00 PM EST Office Visit Cardiology at [address] [place] [phone] Neftali Ernandez MD [facility] [place] [address] documented as of this encounter Visit Diagnoses Diagnosis Screening for cardiovascular condition Screening for other and unspecified cardiovascular conditions Aortic valve stenosis, etiology of cardiac valve disease unspecified documented in this encounter Care Teams Ramp Service Employee Relationship Specialty Start Date End Date Vanessa Christian APRN PCP - General Family Medicine 10/21/23 05/26/24 documented as of this encounter
--- OUTSIDE RECORDS SUMMARY | 2024-05-29 08:21 | XMS_ITS | Encounter Summary ---
Author Organization [facility] [place] [address] Care Team Providers Care Wire Rope Sales Representative Name Role Phone Vanessa Christian APRN Primary Care Provider [phone] Encounter Details Date Type Department Care Team (Late st Contact Info) Description 10/21/2023 Abstract Cardiology at [address] [phone] Adam Mayes RN Social History Tobacco Use [...] 3:00 PM EST Office Visit Cardiology at [address] [phone] Neftali Ernandez MD [facility] [place] [address] documented as of this encounter Visit Diagnoses Not on filedocumented in this encounter Care Teams Wire Rope Sales Representative Relationship Specialty Start Date End Date Vanessa Christian APRN PCP - General Family Medicine 10/21/23 05/26/24 documented as of this encounter
--- OUTSIDE RECORDS SUMMARY | 2024-05-29 08:21 | XMS_ITS | Encounter Summary ---
Author Organization [facility] Address [facility] [place] [address] Care Team Providers Care Distribution Supervisor Name Role Phone Vanessa Christian MAURI Primary Care Provider [phone] Encounter Details Date Type Department Care Team (Late st Contact Info) Description 02/14/2024 Orders [place] [phone] Zak Farmer MD [facility] [place] [address] Coronary artery disease, unspecified vessel or lesion type, unspecified whether angina present, unspecified whether [place] or transplanted heart (Primary Dx) Social History [...] PM EST Office Visit Cardiology at [address] [place] [phone] Neftali Ernandez MD [facility] CARDIOLOGY [place], [place] [phone] documented as of this encounter Results * EKG 12 Lead (03/12/2024 2:35 PM EDT) Ventricular rate 59 BPM MUSE SYSTEM Atrial Rate 59 BPM MUSE SYSTEM P-R Interval 190 ms MUSE SYSTEM QRS Duration 92 ms MUSE SYSTEM Q-T Interval 406 ms MUSE SYSTEM QTC Calculated (Bezet) 401 ms MUSE SYSTEM Calculated P Henderson -12 degrees MUSE SYSTEM Calculated R Henderson 24 degrees MUSE SYSTEM Calculated T Henderson 74 degrees MUSE SYSTEM INTERPRETATION Sinus bradycardia T wave abnormality, consider anterior ischemia Abnormal ECG When compared with ECG of 17-FEB-2024 13:24, UT interval has decreased T wave inversion now evident in Anterior leads Confirmed by Paul Guzman ([id number]) on 03/15/2024 8:36:23 AM MUSE SYSTEM 03/12/2024 2:35 PM EDT 03/15/2024 8:36 AM EDT Zak Farmer MD ECG ORDERABLES MUSE SYSTEM * XR Chest PA & Lateral (Generic) (03/12/2024 1:42 PM EDT) WORKSTATION ID [id number] RAD Anatomical Region Laterality Modality Chest N/A [...] questions please contact the health care management assistant that requested your imaging first. ? 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 Electronically signed by: Augie Sanchez MD, [facility]([phone]), at 03/13/2024 8:28 AM Zak Farmer MD IMG DX ORDERABLES documented in this encounter Visit Diagnoses Diagnosis Coronary artery disease, unspecified vessel or lesion type, unspecified whether angina present, unspecified whether [place] or transplanted heart- Primary Coronary artery disease, unspecified vessel or lesion type, unspecified whether angina present, unspecified whether [place] or transplanted heart documented in this encounter Care Teams Distribution Supervisor Relationship Specialty Start Date End Date Vanessa Christian APRN PCP - General Family Medicine 10/21/23 05/26/24 documented as of this encounter
--- OUTSIDE RECORDS SUMMARY | 2024-05-29 08:21 | XMS_ITS | Encounter Summary ---
Author Organization [facility] [place] [address] Care Team Providers Care Bobbin Cleaner Name Role Phone Vanessa Christian Lane DOTSON Primary Care Provider [phone] Encounter Details Date Type Department Care Team (Late st Contact Info) Description 01/09/2024 2:30 PM EDT Clinical Support Same [place] [phone] Social History Tobacco Use Types Packs/Day Years Used Date Smoking Tobacco: Former Cigarettes Smokeless Tobacco: Never Comments:Quit 15 + years ago Alcohol Use Standard Drinks/Week Comments Yes 0 (1 standard drink = 0.6 oz pur e alcohol) rare [facility] Inpatient Questions Answer Date Recorded Prevent [...] you tube link for a video about [facility] cardiac surgery. Instructed to bring the booklet [...] type and screen performed while in the [facility]. Sent to Radiology for chest x-ray. Special medication instructions: None Procedure date: not booked. Darian documented in this encounter Plan of Treatment Upcoming Encounters Date Type Department Care Team (Late st Contact Info) Description 11/30/2024 3:00 PM EST Office Visit Cardiology at [address] [place] [address] Neftali Ernandez MD [facility] [place] [address] documented as of this encounter Visit Diagnoses Not on filedocumented in this encounter Care Teams Bobbin Cleaner Relationship Specialty Start Date End Date Vanessa Christian APRN PCP - General Family Medicine 10/21/23 05/26/24 documented as of this encounter
--- OUTSIDE RECORDS SUMMARY | 2024-05-29 08:21 | XMS_ITS | Encounter Summary ---
[facility] [place] [address] Care Team Providers Care Residential Recycle Driver Name Role Phone Aparna Jordan MAURI Primary Care Provider [phone] Reason for Visit * Auth/Cert (Routine) Specialty [...] ARTERIAL GRAFT (WRVU 7.93) Hayder Graham MD [facility] [place] [address] [facility] Referral ID Status Reason Start Date Expiration Date Visits Re quested Visits Authorized [id number] 1 1 Encounter Details Date Type Department Care Team (Late st Contact Info) Description 02/17/2024 7:30 AM EDT - 02/17/2024 1:26 PM EDT Surgery [place] [id number] Hayder Graham MD [facility] [place] [address] ENDOSCOPIC HARVEST VEIN(S) FOR CABG (WRVU 0.31) Social History Tobacco Use Types Packs/Day Years Used Date Smoking Tobacco: Former Cigarettes Smokeless Tobacco: Never Comments:Quit 15 + years ago Alcohol Use Standard Drinks/Week Comments Yes 0 (1 standard drink = 0.6 oz pur e alcohol) rare [facility] Utilities Answer Date Recorded In [...] Patient Age: 63 y.o. Birthdate: 1960 Language: Guinean Race: White Ethnicity: Not nor Admit Date: 02/17/2024 Discharge Date: 02/24/24 Attending Physician: Hayder Graham MD Follow-up Recommendations for Providers: Please continue routine management of cardiovascular risk factors including blood pressure, lipids,glucose, etc. Please note any changes to medications. Patient to follow up with PCP, Aparna Jordan APRN, in 1-2 weeks. Patient to follow up with Cyber Crime Investigator, Neftali Ernandez MD , in 2 weeks. Patient to follow up with Cardiac Surgeon, Dr. Hayder Graham, with a chest x-ray, EKG, and Echo. 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 Right episcopal Past Surgical History: Procedure Laterality Date PRO CABG, ARTERIAL, SINGLE N/A 02/17/2024 @CABG, USING ARTERIAL GRAFT;SINGLE ARTERIAL GRAFT (WRVU 33.75) performed by Hayder Graham MD at [facility] MAIN OR PRO CABG, ARTERY-VEIN, TWO N/A 02/17/2024 @CABG, TWO VENOUS GRAFTS & ARTERIAL GRAFT (WRVU 7.93) performed by Hayder Graham MD at [facility] MAIN OR PRO ENDOSCOPY W/VIDEO-ASST VEIN HARVEST, CABG Left 02/17/2024 ENDOSCOPIC HARVEST VEIN(S) FOR CABG (WRVU 0.31) performed by Hayder Graham MD at [facility] MAIN OR PRO REPLACEMENT PROSTHETIC AORTIC VALVE OPEN W CARDIOPULMONARY BYPASS HOMOGRF/STENT N/A 02/17/2024 @REPLACE AORTIC VALVE, OPEN, W\CPB, W\PROSTHETIC VALVE (WRVU 41.32) performed by Hayder Graham MD at [facility] MAIN OR Prior To Admission [...] insufficiency. He has glaucoma. He used to bacPrism Skylabs until about 15 years ago. He has undergone prior herniorrhaphy. 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 Major Procedures/Operations: 02/17/24 s/p avr/cabgx3 CABG x 3 JOSE->LAD SVG->dRCA SVG->OM1 EVH from LLE AVR with a 23 mm Inspiris Bioprosthesis Hospital Course: Karlos Garcia was admitted to [facility] on 02/17/2024 via the Same [...] Hayder Graham and/or the Cardiac Surgery Physician Help Desk Assistant Team may be reached at . Antibiotic [...] Please refer to the card with the [place] Heart Association Guidelines for more information. You [...] Dr. Hayder Graham. You may use a [place] Track or treadmill but avoid any pulling [...] friends, go to a movie, go to methodist, etc. Heavy activities: No hunting, skiing, jogging, [...] should resume a low fat, low cholesterol, [place] Heart Association Diet. Driving: No driving until [...] while being managed by your PCP and/or Cyber Crime Investigator. For future medication refills, please refer to your PCP and/or Cyber Crime Investigator after your discharge from our service. Thank you REMOVE CHEST TUBE SUTURES ON OR AFTER 03/02/24 Home oxygen therapy: N/A Follow up appointments: You should follow up with your PCP, Aparna Jordan APRN, in 1-2 weeks. Our office will schedule an appointment with your Cyber Crime Investigator, Neftali Ernandez MD , in 2 weeks. You have an appointment with your Cardiac Surgeon, Dr. Hayder Graham, 4 weeks with a chest x-ray, EKG, and Echo before your appointment. Cardiac Rehabilitation: Karlos Garcia was seen regarding participation in the outpatient Phase 2Cardiac Rehabilitation at [facility]. The patient agrees to a referral to this program. The referral will be sent at discharge and the patient should be contacted by the Program within 1- 2 weeks from discharge. Future Appointments and Orders Future Orders Complete By Expires Echocardiogram Transthoracic [88055 CPT(R)] 03/26/2024 09/25/2024 Process Instructions: Scheduling Instructions: Questions: Where will study be performed?: [facility] Clinics Does the patient have Congenital Heart Disease?: Does patient require sedation?: Sedation rationale: XR Chest PA & Lateral (Generic) [43177 39533 Custom] 03/26/2024 09/25/2024 Process Instructions: Scheduling Instructions: Questions: Portable exam?: Reason for exam and clinical history: s/p avr/cabg Clinical information / jerome questions for radiologist: Stat read required?: Date of injury if applicable: Requested Time: Where will study be performed?: [facility] Radiology Referral to Cardiac Rehab [[id number] Custom] As directed Process Instructions: If no progress note charted, please enter Clinical details in comments. Scheduling Instructions: Questions: My question or request is: s/p AVR/CABG. Cardiac rehab at [facility]. Referral to Home Health [REF34 Custom] As directed Process Instructions: If no progress note charted, please enter Clinical details in comments. Scheduling Instructions: Comments: Please evaluate Karlos Garcia for admission to Home Health. [address] Phone Number: Date of : 1960 Inpatient DOCUMENTATION FOR VNA SERVICES (INCLUDING THOSE PATIENTS WITH MEDICARE COVERAGE REQUIRING HOME VNA SERVICES AND/OR HOSPICE SERVICES) PATIENT'S LOCATION: Karlos Garcia [address] [place] [phone] Emergency Medicine Physician Assistant's Name: self/family In discussion with the attending physician, it is certified that this patient is under their care and that they, or a Nurse Practitioner, or Physician Help Desk Assistant who is working directly with them, hada [...] for services as follows: HOME HEALTH AGENCY: [facility] [address] [place] [phone] RN orders: Cardiopulmonary assessment, incisional assessment, assess [...] issues please call the Cardiology Office at [phone] FOR MEDICARE ONLY: (please delete this section [...] care: As above. Signed: NEFTALI MENON PA-C [facility] Section of Cardiac Surgery [facility] [address] FAX [phone] Date: 02/24/2024 CC: Aparna Jordan, MAURI Jordan, Aparna Sherman APRN [address] [place] [address] documented in this encounter Discharge Instructions * [...] Hayder Graham and/or the Cardiac Surgery Physician Help Desk Assistant Team may be reached at . Antibiotic [...] Please refer to the card with the [place] Heart Association Guidelines for more information. You [...] Dr. Hayder Graham. You may use a [place] Track or treadmill but avoid any pulling [...] friends, go to a movie, go to methodist, etc. Heavy activities: No hunting, skiing, jogging, [...] should resume a low fat, low cholesterol, [place] Heart Association Diet. Driving: No driving until [...] while being managed by your PCP and/or Cyber Crime Investigator. For future medication refills, please refer to your PCP and/or Cyber Crime Investigator after your discharge from our service. Thank you REMOVE CHEST TUBE SUTURES ON OR AFTER 03/02/24 Home oxygen therapy: N/A Follow up appointments: You should follow up with your PCP, Aparna Jordan APRN, in 1-2 weeks. Our office will schedule an appointment with your Cyber Crime Investigator, Neftali Ernandez MD , in 2 weeks. You have an appointment with your Cardiac Surgeon, Dr. Hayder Graham, 4 weeks with a chest x-ray, EKG, and Echo before your appointment. Cardiac Rehabilitation: Karlos Garcia was seen regarding participation in the outpatient Phase 2Cardiac Rehabilitation at [facility]. The patient agrees to a referral [...] 0600 and on the weekends please page [phone]. * Eric Barahona PA - 02/23/2024 9:27 [...] 0600 and on the weekends please page [phone]. * Tiffanie Owens - 02/22/2024 2:48 PM [...] d/c for 10 days. 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 * Kelley Hinson VISUAL SPECIALIST - 02/21/2024 10:15 AM EDT Physical Therapy [...] d/c for 10 days. 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 * Kelley Hinson PTA - 02/20/2024 3:32 [...] at that time Kelley Hinson PTA Pager: [phone] Physical Therapy Inpatient Rehab Department * Loiusa Cho PA - 02/20/2024 9:15 AM EDT [...] 0600 and on the weekends please page [phone]. * Maris Benavides, PT - 02/19/2024 11:22 [...] d/c for 10 days. 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 Precautions/Special Considerations: STERNAL [...] Sternal incision CDI. Musculoskeletal: ROM: WFL Strength: Danielle LE's 4/5 Bed Mobility: Supine ->Sit: min [...] outlined inthis evaluation. MARIS BENAVIDES, PT Pager: [phone] Physical Therapy Inpatient Rehabilitation Department Time IN / OUT: 1018-1575 Total Time: 38 (eval) minutes; * Antonoi Allen PA - 02/19/2024 9:16 AM EDT [...] dressing CDI. Saphenectomy site CDI Tubes/Lines/Drains: TPW, Elaina Assessment/Plan: 63 y.o. male 2 Days Post-Op [...] 0600 and on the weekends please page [phone]. * Minnie Begum PA - 02/18/2024 8:25 [...] site CDI with SANJANA wrap Tubes/Lines/Drains: RIJ/PAC, [place], Med Ctx, L pleural CT, TPW, Naqvi [...] 0600 and on the weekends please page [phone]. * Kim Ha PEDIATRIC NEPHROLOGIST - 02/17/2024 2:25 PM EDT Respiratory Care [...] plan since last visit. Hayder Graham MD [phone] Source Note - Hayder Graham MD - [...] given written informed consent. Hayder Graham MD [phone] * Hayder Graham MD - 02/17/2024 7:00 [...] given written informed consent. Hayder Graham MD [phone] documented in this encounter Miscellaneous Notes * [...] information for follow-up Home Health & Hospice, [address] [place] [address] Cardiac Rehab, [address] [place] [address] Transportation: family or friend will provide Functional status prior to admission: Independent Home Environment: Others in the home: alone. Current Living Arrangements: home/apartment/condo. Accessibility Concerns:a few steps to enter 1 floor home. Current Functional Ability: Assistive Person and Equipment DME used at home: none DME Needed at Discharge: N/A Patient is insured through: Primary Insurance: [employer] Payor: [place] / Plan: [facility] PPO / Product Type: *No Product [...] pain managed with scheduled Tylenol. Worked with [employer]. Ambulated in the roque multiple times during [...] anticipated Patient is insured through: Primary Insurance: [place] Payor: [place] / Plan: [facility] PPO / Product Type: *No Product type* / Secondary Insurance: N/A Last Physical Therapy Recommendation: home with home health (Str coming to stay for a week or two upon d/c) with to be determined (owns rolling walker, shower seat) Plan for discharge is: Home w/ Services Outpatient Agency/Support Group Needs: Homecare agency Home Health Services: Physical Therapy, Registered Nurse Agency Referrals: [facility]. [address] [place] [phone] Transportation: family or friend will provide Barriers to discharge: Discharge planning Plan going forward: Service Care Management will continue to follow and assist with discharge planning and coordination of care as indicated. Anticipated Date of Discharge: 02/22/2024 Rhett Bell RN RN/CM - Cellphone: [phone] Pager: [phone] Covering Service RN/CM * Plan of Care [...] Yang RN - 02/19/2024 10:44 AM EDT [facility] CARDIAC REHABILITATION Karlos Garcia was seen today regarding participation in the outpatient Phase 2 Cardiac Rehabilitation at [facility]. 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 (Only good for 180 days) Any patient receiving care in [place] must abide by [place] law. The hierarchy for surrogate decision making [...] (i) The agent with financial power of commonwealth attorney or a conservator appointed in accordance [...] steady place to sleep or slept in [facility] (including now)?: No In the past 12 months has the [employer], gas, oil, or water [employer] threatened to shut off services in your [...] as: [address] [facility] [address] Physical address: [address] [facility], [address] Social & Family Supports: All names listed [...] Information: none noted Health/Prescription Coverage: Primary Insurance: [place] Payor: [place] / Plan: [facility] PPO / Product Type: *No Product type* / Secondary Insurance: N/A ; Prescription Coverage: Yes Preferred Pharmacy: [id number] [address] Status: Patient is a : No Primary Care Provider confirmed: Aparna Jordan APRN [phone] Patient/Caregiver Goals of Treatment: dc to home Potential Needs for Transition of Care: home health care Agency Referrals: I have met with the patient to: discuss discharge planning needs. provide the [facility], Office of Care Management letter from the Director Of Professional Services pertaining to rehab referrals. provide a letter describing our affiliations within the [facility] and educate about their right to choose where referrals are sent. provide a list of Home Health Agencies / Durable Medical Equipment vendors which serve their preferred geographic area. provided patient with [facility] Star Quality Rating handout. They have requested referrals to: [facility] [address] [place] [address] Note routed to a Needle Board Repairer who will communicate referrals to facilities and [...] Reina Greene RN CM, BSN, CMGT- Ext [phone] * Plan of Care - Binta Trinidad [...] Operative Note Patient Name: Karlos Garcia : [id number] MR#: [id number] Case Date: 02/17/2024 Surgeon: Surgeon(s) and Role: * Hayder Graham MD - Primary * Neftali Menon PA - Physician Help Desk Assistant Preoperative diagnosis: CAD Postoperative diagnosis: CAD, intraoperative [...] mL Drains: Mediastinal and Left pleural Disposition: [facility] Condition: doing well without problems Attestation: Case Date: 02/17/2024 I performed this procedure without the involvement of a resident. HAYDER GRAHAM MD 02/17/2024 * Op Note - Hayder Graham MD - 02/17/2024 8:20 AM EDT [facility] Operative Note Patient Name: Karlos Garcia : [id number] MR#: [id number] Case Date: 02/17/2024 Surgeon: Surgeons and Role: * Hayder Graham MD - Primary * Neftali Menon PA - Physician Help Desk Assistant Preoperative diagnosis: CAD Postoperative diagnosis: CAD, intraoperative [...] mL Drains: Mediastinal and Left pleural Disposition: [facility] Procedure Description: The patient was brought [...] PM EST Office Visit Cardiology at [address] [address] Neftali Ernandez MD [facility] [place] [address] Scheduled Orders Name Type Priority Associated Diagnoses [...] Aortic Valve Open W Cardiopulmonary Bypass Homogrf/Stent (76183) Yes 02/17/2024 7:28 AM EDT CAD Cabg, Artery-Vein, Two (50901) Yes 02/17/2024 7:28 AM EDT CAD Cabg, Arterial, Single (63796) Yes 02/17/2024 7:28 AM EDT CAD Endoscopy W/Video-Asst Vein [place], Cabg (51710) Yes 02/17/2024 7:28 AM EDT CAD POCT GLUCOSE Routine 02/17/2024 6:38 AM EDT TRANSESOPHAGEAL ECHOCARDIOGRAM IN THE OR Routine 02/17/2024 6:33 AM EDT Aortic valve stenosis, etiology of cardiac valve disease unspecified LAB SCAN 02/17/2024 12:00 AM EDT IMPLANTABLE DEVICES SCAN 02/17/2024 12:00 AM EDT documented in this encounter Results * Potassium (02/24/2024 4:42 AM EDT) Potassium 4.0 3.5 - 5.0 mmol/L [facility] Comment: Please note: ??Patients [...] Lab Hayder Graham MD CHEMISTRY ORDERABLE S [facility] [place] [address] * (ABNORMAL) Basic Metabolic Panel (non-fasting) (02/23/2024 4:24 AM EDT) Glucose 117 65 - 199 mg/dL [facility] Comment:Diabetes: >=200 mg/d L plus symptoms Blood Urea Nitrogen 18 10 - 20 mg/dL [facility] Creatinine 0.71(L) 0.80 - 1.50 mg/dL [facility] Sodium 138 135 - 145 mmol/L [facility] Potassium 4.4 3.5 - 5.0 mmol/L [facility] Comment: Please note: ??Patients with WBC >100,000 may have falsely elevated Potassium levels. ??For accurate Potassium quantification in these patients send serum separator tube (gold top) for subsequent determinations. ??Contact the Clinical Chemistry Laboratory if there are any questions. Chloride 101 98 - 107 mmol/L [facility] Carbon Dioxide 26 22 - 31 mmol/L [facility] Anion Gap 11 5 - 15 mmol/L [facility] Calcium 8.8 8.5 - 10.5 mg/dL [facility] Est Glomerular Filtration Rate 102 >=60 mL/min/1. 73 m?? [facility] Comment: This patient's estimated [...] In Lab Romeo Carpio MD CHEMISTRY ORDERABLES [facility] [place] [address] * Potassium (02/22/2024 4:30 AM EDT) Potassium 3.5 3.5 - 5.0 mmol/L [facility] Comment: Please note: ??Patients [...] Lab Hayder Graham MD CHEMISTRY ORDERABLE S [facility] [place] [address] * (ABNORMAL) Basic Metabolic Panel (non-fasting) (02/21/2024 9:45 AM EDT) Glucose 123 65 - 199 mg/dL [facility] Comment:Diabetes: >=200 mg/d L plus symptoms Blood Urea Nitrogen 22(H) 10 - 20 mg/dL [facility] Creatinine 0.78(L) 0.80 - 1.50 mg/dL [facility] Sodium 140 135 - 145 mmol/L [facility] Potassium 3.9 3.5 - 5.0 mmol/L [facility] Comment: Please note: ??Patients with WBC >100,000 may have falsely elevated Potassium levels. ??For accurate Potassium quantification in these patients send serum separator tube (gold top) for subsequent determinations. ??Contact the Clinical Chemistry Laboratory if there are any questions. Chloride 100 98 - 107 mmol/L [facility] Carbon Dioxide Not Perf 22 - 31 [facility] Comment:Add-on request. Yolanda le too old to perform test. Anion Gap Unable to Calculate 5 - 15 mmol/L [facility] Calcium 8.6 8.5 - 10.5 mg/dL [facility] Est Glomerular Filtration Rate 100 >=60 mL/min/1 .73 m?? [facility] Comment: This patient's estimated [...] In Lab Romeo Carpio MD CHEMISTRY ORDERABLES [facility] [place] [address] * Lactate, whole blood, send to lab ([facility]) (02/21/2024 9:45 AM EDT) [facility] Lactate WB 2.0 0.5 - 2.2 mmol/L [facility] Blood 02/21/2024 9:45 AM EDT 02/21/2024 9:52 AM EDT Narrative Resulting Agency Comment Spec In Lab Hayder Graham MD CHEMISTRY ORDERABLE S Performing Organization Address [facility] Co de Phone Number [facility] [place] [address] * (ABNORMAL) Hepatic Function Panel (02/21/2024 9:45 AM EDT) [facility] Protein, Total 5.7(L) 6.1 - 8.0 g/dL [facility] Albumin 3.3 3.2 - 5.2 g/dL [facility] Aspartate Aminotransferase 13 0 - 39 unit/L [facility] Alanine Aminotransferase 16 0 - 55 unit/L [facility] Alkaline Phosphatase 63 40 - 130 unit/L [facility] Bilirubin, Total 0.6 0.2 - 1.3 mg/dL [facility] Bilirubin, Direct 0.2 0.0 - 0.3 mg/dL [facility] Blood 02/21/2024 9:45 AM EDT 02/21/2024 9:52 AM EDT Narrative Resulting Agency Comment Spec In Lab Hayder Graham MD CHEMISTRY ORDERABLE S [facility] [place] [address] * Lipase (02/21/2024 9:45 AM EDT) Lipase 56 0 - 60 unit/L [facility] Blood 02/21/2024 9:45 AM EDT 02/21/2024 9:52 AM EDT Narrative Resulting Agency Comment Spec In Lab Hayder Graham MD CHEMISTRY ORDERABLE S [facility] [place] [address] * Amylase (02/21/2024 9:45 AM EDT) Amylase 69 28 - 100 unit/L [facility] Blood 02/21/2024 9:45 AM EDT 02/21/2024 9:52 AM EDT Narrative Resulting Agency Comment Spec In Lab Hayder Graham MD CHEMISTRY ORDERABLE S Performing Organization Address City/[facility]/ZIP Co de Phone Number [facility] [place] [address] * Potassium (02/21/2024 3:08 AM EDT) Potassium 3.8 3.5 - 5.0 mmol/L [facility] Comment: Please note: ??Patients [...] Lab Hayder Graham MD CHEMISTRY ORDERABLE S [facility] [place] [address] * XR Chest PA & Lateral (Generic) (02/20/2024 10:19 AM EDT) WORKSTATION ID [id number] RAD Anatomical Region Laterality Modality Chest N/A Digital Radiogra phy Impressions 02/20/2024 1:11 PM EDT Small pleural effusions. No pneumothorax Thank you for letting us participate in the care of this patient. ??If you are a health care provider and have any questions regarding this report, please contact the number below. ??For patients who have questions please contact the health child care counselor that requested your imaging first. ? Electronically signed by: Rogerio Cruz MD, [facility] ??([phone]), at 02/20/2024 1:11 PM Narrative 02/20/2024 1:11 PM EDT EXAMINATION: XR CHEST PA AND LATERAL (GENERIC) CLINICAL HISTORY: s/p AVR/CABGx3 TECHNIQUE: PA and lateral views of the chest COMPARISON: 02/17/2024 FINDINGS: Support devices: Interval removal of [place] catheter, endotracheal tube and mediastinal chest tubes The cardiac silhouette is stable status post median sternotomy, CABG and aortic valve replacement. There are small pleural effusions. No pneumothorax. Procedure Note Rogerio Cruz MD - 02/20/2024 EXAMINATION: XR CHEST PA AND LATERAL (GENERIC) CLINICAL HISTORY: s/p AVR/CABGx3 TECHNIQUE: PA and lateral views of the chest COMPARISON: 02/17/2024 FINDINGS: Support devices: Interval removal of [place] catheter, endotracheal tubeand mediastinal chest tubes The [...] have questions please contactthe health child care counselor that requested your imaging first. Electronically signed by: Rogerio Cruz MD, [facility]([phone]), at 02/20/2024 1:11 PM Hayder Graham MD IMG DX ORDERABLES * Scan, Peripheral Blood (02/20/2024 4:23 AM EDT) Pathologist [facility] Plat estimate Decreased [facility] RBC Morphology Normal [facility] Blood 02/20/2024 4:23 AM EDT 02/20/2024 4:42 AM EDT Narrative Resulting Agency Comment Spec In Lab Minnie FRENCH HEMATOLOGY CECILIO ALEMAN [facility] [place] [phone] * (ABNORMAL) Differential, Automated (02/20/2024 4:23 AM EDT) [facility] Neutrophil % 81.7 % [facility] Neutrophil Absolute 10.37(H) 1.70 - 6.10 x10(3)/mc L [facility] Lymph % 7.4 % [facility] Lymphocytes Abs 0.9 0.9 - 3.2 x10(3)/mc L [facility] Monocyte % 9.7 % [facility] Monocyte Abs 1.2(H) 0.3 - 0.9 x10(3)/mc L [facility] Eos % 0.1 % [facility] Eosinophils Abs 0.0 0.0 - 0.4 x10(3)/mc L [facility] Basophil % 0.2 % [facility] Baso Absolute 0.0 0.0 - 0.1 x10(3)/mc L [facility] Immature Gran % 0.90 % [facility] Comment: Immature granulocytes(IG's)percentage and absolute count will include metamyelocytes, myelocytes, and promyelocytes. Blood smears from CBCs yielding IG's will be scanned manually for concordance. If this scan disagrees with the automated IG or if promyelocytes are noted, a manual differential will be performed. Immature Gran Absolute 0.12(H) 0.00 - 0.04 x10(3)/mc L [facility] Blood 02/20/2024 4:23 AM EDT 02/20/2024 4:42 AM EDT Narrative Resulting Agency Comment Spec In Lab Minnie FRENCH HEMATOLOGY CECILIO ALEMAN [facility] [place] [address] * (ABNORMAL) Hemogram (02/20/2024 4:23 AM EDT) White Blood Cell 12.7(H) 4.0 - 9.5 x10(3)/ L [facility] Red Blood Cell 4.26(L) 4.58 - 5.54 x10(6)/mc L [facility] Hemoglobin 12.3(L) 13.7 - 16.5 g/dL [facility] Hematocrit 37.1(L) 40.5 - 48.5 % [facility] Mean Cell Volume 87.1 82.9 - 93.1 fL [facility] Mean Cell Hemoglobin 28.9 27.5 - 32.1 pg [facility] Mean Cell Hemoglobin Concentration 33.2 32.0 - 35.7 g/dL [facility] Platelet 88(L) 145 - 357 x10(3)/ L [facility] RDW Standard Deviation 43.5 36.0 - 45.0 fL [facility] RDW coefficient of variation 13.7 11.4 - 13.8 % [facility] Mean Platelet Volume 10.2 7.6 - 12.9 fL [facility] NRBC% auto 0.0 % [facility] NRBC Absolute 0.000 0.000 - 0.000 x10(3)/mc L [facility] Blood 02/20/2024 4:23 AM EDT 02/20/2024 4:42 AM EDT Narrative Resulting Agency Comment Spec In Lab Minnie FRENCH HEMATOLOGY CECILIO ALEMAN [facility] [place] [address] * (ABNORMAL) Basic Metabolic Panel (non-fasting) (02/20/2024 4:23 AM EDT) Glucose 113 65 - 199 mg/dL [facility] Comment:Diabetes: >=200 mg/d L plus symptoms Blood Urea Nitrogen 20 10 - 20 mg/dL [facility] Comment:result rechecked-[place] Creatinine 0.71(L) 0.80 - 1.50 mg/dL [facility] Sodium 135 135 - 145 mmol/L [facility] Potassium 3.9 3.5 - 5.0 mmol/L [facility] Comment: Please note: ??Patients with WBC >100,000 may have falsely elevated Potassium levels. ??For accurate Potassium quantification in these patients send serum separator tube (gold top) for subsequent determinations. ??Contact the Clinical Chemistry Laboratory if there are any questions. Chloride 102 98 - 107 mmol/L [facility] Carbon Dioxide 25 22 - 31 mmol/L [facility] Anion Gap 8 5 - 15 mmol/L [facility] Calcium 8.7 8.5 - 10.5 mg/dL [facility] Comment:result rechecked-[place] Est Glomerular Filtration Rate 102 >=60 mL/min/1. 73 m?? [facility] Comment: This patient's estimated [...] MD CHEMISTRY ORDERABLE S Performing Organization Address [facility] Co de Phone Number [facility] [place] [address] * Potassium (02/19/2024 3:57 AM EDT) Potassium 4.3 3.5 - 5.0 mmol/L [facility] Comment: Please note: ??Patients [...] MD CHEMISTRY ORDERABLE S Performing Organization Address [facility]/ZIP Co de Phone Number [facility] [place] [address] * POCT Glucose (02/18/2024 8:24 AM EDT) Glucose, POC 157 65 - 199 mg/dL [facility] Comment: Supplemental ranges: <140 mg/dL before meals <180 mg/dL all other times of the day Blood 02/18/2024 8:24 AM EDT 02/18/2024 8:24 AM EDT Hayder Graham MD POINT OF CARE TEST ORDERABLES Performing Organization Address City/[facility]/ZIP Co de Phone Number [facility] [place] [address] * Scan, Peripheral Blood (02/18/2024 1:40 AM EDT) Plat estimate Decreased [facility] RBC Morphology Normal [facility] Blood 02/18/2024 1:40 AM EDT 02/18/2024 1:56 AM EDT Narrative Resulting Agency Comment Spec In Lab Neftali FRENCH HEMATOLOGY ORDER OLE Performing Organization Address City/[facility] Co de Phone Number [facility] [place] [address] * (ABNORMAL) Differential, Automated (02/18/2024 1:40 AM EDT) [facility] Neutrophil % 87.1 % [facility] Neutrophil Absolute 15.03(H) 1.70 - 6.10 x10(3)/mc L [facility] Lymph % 3.0 % [facility] Lymphocytes Abs 0.5(L) 0.9 - 3.2 x10(3)/mc L [facility] Monocyte % 9.1 % [facility] Monocyte Abs 1.6(H) 0.3 - 0.9 x10(3)/mc L [facility] Eos % 0.0 % [facility] Eosinophils Abs 0.0 0.0 - 0.4 x10(3)/mc L [facility] Basophil % 0.2 % [facility] Baso Absolute 0.0 0.0 - 0.1 x10(3)/mc L [facility] Immature Gran % 0.60 % [facility] Comment: Immature granulocytes(IG's)percentage and absolute count will include metamyelocytes, myelocytes, and promyelocytes. Blood smears from CBCs yielding IG's will be scanned manually for concordance. If this scan disagrees with the automated IG or if promyelocytes are noted, a manual differential will be performed. Immature Gran Absolute 0.10(H) 0.00 - 0.04 x10(3)/mc L [facility] Blood 02/18/2024 1:40 AM EDT 02/18/2024 1:56 AM EDT Narrative Resulting Agency Comment Spec In Lab Neftali FRENCH HEMATOLOGY ORDER OLE [facility] [place] [address] * (ABNORMAL) Hemogram (02/18/2024 1:40 AM EDT) White Blood Cell 17.2(H) 4.0 - 9.5 x10(3)/mc L [facility] Red Blood Cell 4.71 4.58 - 5.54 x10(6)/mc L [facility] Hemoglobin 13.7 13.7 - 16.5 g/dL [facility] Hematocrit 39.2(L) 40.5 - 48.5 % [facility] Mean Cell Volume 83.2 82.9 - 93.1 fL [facility] Mean Cell Hemoglobin 29.1 27.5 - 32.1 pg [facility] Mean Cell Hemoglobin Concentration 34.9 32.0 - 35.7 g/dL [facility] Platelet 147 145 - 357 x10(3)/mc L [facility] RDW Standard Deviation 39.9 36.0 - 45.0 [facility] RDW coefficient of variation 13.2 11.4 - 13.8 % [facility] Mean Platelet Volume 9.9 7.6 - 12.9 fL [facility] NRBC% auto 0.0 % [facility] NRBC Absolute 0.000 0.000 - 0.000 x10(3)/mc L [facility] Blood 02/18/2024 1:40 AM EDT 02/18/2024 1:56 AM EDT Narrative Resulting Agency Comment Spec In Lab Neftali FRENCH HEMATOLOGY ORDER OLE [facility] [place] [address] * (ABNORMAL) Basic Metabolic Panel (non-fasting) (02/18/2024 1:40 AM EDT) Glucose 176 65 - 199 mg/dL [facility] Comment:Diabetes: >=200 mg/d L plus symptoms Blood Urea Nitrogen 10 10 - 20 mg/dL [facility] Creatinine 0.65(L) 0.80 - 1.50 mg/dL [facility] Sodium 135 135 - 145 mmol/L [facility] Potassium 4.2 3.5 - 5.0 mmol/L [facility] Comment: Please note: ??Patients with WBC >100,000 may have falsely elevated Potassium levels. ??For accurate Potassium quantification in these patients send serum separator tube (gold top) for subsequent determinations. ??Contact the Clinical Chemistry Laboratory if there are any questions. Chloride 106 98 - 107 mmol/L [facility] Carbon Dioxide 20(L) 22 - 31 mmol/L [facility] Anion Gap 9 5 - 15 mmol/L [facility] Calcium 7.6(L) 8.5 - 10.5 mg/dL [facility] Est Glomerular Filtration Rate 105 >=60 mL/min/1. 73 m?? [facility] Comment: This patient's estimated [...] Lab Hayder Graham MD CHEMISTRY ORDERABLE S [facility] [place] [address] * (ABNORMAL) Troponin (02/18/2024 1:40 AM EDT) Pathologist [facility] Troponin-T, High Sensitivity 342(H) <=22 ng/L [facility] [...] can be found in the [facility] Laboratory Test Catalog Troponin - [facility] Laboratory Test Catalog Reference: Fourth [place] Definition of Myocardial Infarction. Journal of the [place] [employer] 2018;72:3051-6939 Blood 02/18/2024 1:40 AM EDT 02/18/2024 1:56 AM EDT Narrative Resulting Agency Comment Spec In Lab Hayder Graham MD CHEMISTRY ORDERABLE S Performing Organization Address [facility] Co de Phone Number [facility] [place] [address] * POCT Glucose (02/17/2024 8:13 PM EDT) Glucose, POC 142 65 - 199 mg/dL [facility] Comment: Supplemental ranges: <140 mg/dL before meals <180 mg/dL all other times of the day Blood 02/17/2024 8:13 PM EDT 02/17/2024 8:13 PM EDT Hayder Graham MD POINT OF CARE TEST ORDERABLES Performing Organization Address [facility] de Phone Number [facility] [place] [address] * POCT Glucose (02/17/2024 5:42 PM EDT) Glucose, POC 160 65 - 199 mg/dL [facility] Comment: Supplemental ranges: <140 mg/dL before meals <180 mg/dL all other times of the day Blood 02/17/2024 5:42 PM EDT 02/17/2024 5:42 PM EDT Hayder Graham MD POINT OF CARE TEST ORDERABLES Performing Organization Address [facility] Co de Phone Number [facility] [place] [address] * Hemoglobin (02/17/2024 5:42 PM EDT) Hemoglobin 13.7 13.7 - 16.5 g/dL [facility] Blood 02/17/2024 5:42 PM EDT 02/17/2024 6:10 PM EDT Narrative Resulting Agency Comment Spec In Lab Hayder Graham MD HEMATOLOGY ORDERABL ES Performing Organization Address [facility]/ZIP Co de Phone Number [facility] [place] [address] * Potassium (02/17/2024 5:42 PM EDT) Pathologist [facility] Potassium 4.3 3.5 - 5.0 mmol/L [facility] Comment: Please note: ??Patients [...] MD CHEMISTRY ORDERABLE S Performing Organization Address [facility] Co de Phone Number [facility] [place] [address] * (ABNORMAL) BLOOD GAS 2 ARTERIAL (02/17/2024 4:18 PM EDT) pH, Arterial 7.34(L) 7.35 - 7.45 [facility] PCO2, Arterial 40 35 - 45 mmHg [facility] PO2, Arterial 78(L) 85 - 104 mmHg [facility] Bicarbonate, Arterial 20.8 20.0 - 26.0 mmol/L [facility] Base Excess, Arterial -5.1(L) -3.0 - 3.0 mmol/L [facility] Hgb Blood Gas 14.6 13.7 - 16.5 g/dL [facility] Oxyhemoglobin, Arterial 93.0(L) 94.0 - 97.0 % [facility] Carboxyhemoglob in, Arterial 0.3 % [facility] Comment: Nonsmokers: 0.5-1.5% COHB Smokers: Variable, but usually less than 10% Toxic: 20-30% COHB Lethal: Greater than 60% COHB Methemoglobin, Arterial 0.8 <=1.5 % [facility] Na Whole Blood 136 135 - 145 mmol/L [facility] K Whole Blood 4.1 3.5 - 5.0 mmol/L [facility] Comment: Please note: Patients with WBC >100,000 may have falsely elevated Potassium levels. Contact the Clinical Chemistry Laboratory if there are any questions. ICa Whole Blood 1.10(L) 1.15 - 1.33 mmol/L [facility] Comment: Note: ??Total bilirubin higher than 20 mg/dL may lead to falsely low ionized calcium. CL Whole Blood 105 98 - 107 mmol/L [facility] Gluc Whole Bld 159 65 - 199 mg/dL [facility] Comment:Diabetes: >=200 mg/d L plus symptoms. Lactate WB 1.2 0.5 - 2.2 mmol/L [facility] FIO2 Art 40 % [facility] PF Ratio Art 195 [facility] Blood 02/17/2024 4:18 PM EDT 02/17/2024 4:18 PM EDT Hayder Graham MD POINT OF CARE TEST ORDERABLES Performing Organization Address City/State/[facility] Co de Phone Number [facility] [place] [address] * XR Chest One View (02/17/2024 1:44 PM EDT) [employer] WORKSTATION ID [id number] RAD Anatomical Region Laterality Modality Chest N/A Digital Radiogra phy Impressions 02/17/2024 2:12 PM EDT 1. ??No definite pleural fluid collection or pneumothorax. 2. ??Right IJ [place] catheter tip terminates in a descending branch [...] questions please contact the health child care counselor that requested your imaging first. ? Electronically signed by: Denzel Hankins MD, [facility] ??([phone]), at 02/17/2024 2:12 PM Narrative 02/17/2024 2:12 PM EDT EXAMINATION: XR CHEST ONE VIEW CLINICAL HISTORY: s/p avr/cabg eval effusions TECHNIQUE: 1 view of the chest COMPARISON: Chest x-ray 01/09/2024, chest CT 02/03/2024 FINDINGS: ET tube tip terminates 5.2 cm above the carlos. Right IJ [place]a catheter tip terminates in a descending branch [...] tube tip terminates 5.2 cm above the cralos. Right IJ [place]-Ganzcatheter tip terminates in a descending branch of [...] fluid collection or pneumothorax. 2. Right IJ [place] catheter tip terminates in a descending branch ofthe right pulmonary artery. Suggest catheter retraction. 3. Additional support lines and tubes as above. Thank you for letting us participate in the care of this patient. If youare a health care provider and have any questions regarding this report,please contact the number below. For patients who have questions please contactthe health child care counselor that requested your imaging first. Electronically signed by: Denzel Hankins MD, [facility]([phone]), at 02/17/2024 2:12 PM Hayder Graham MD IMG DX ORDERABLES * (ABNORMAL) BLOOD GAS 2 ARTERIAL (02/17/2024 1:31 PM EDT) pH, Arterial 7.35 7.35 - 7.45 [facility] PCO2, Arterial 39 35 - 45 mmHg [facility] PO2, Arterial 320(H) 85 - 104 mmHg [facility] Bicarbonate, Arterial 21.4 20.0 - 26.0 mmol/L [facility] Base Excess, Arterial -4.2(L) -3.0 - 3.0 mmol/L [facility] Hgb Blood Gas 14.1 13.7 - 16.5 g/dL [facility] Oxyhemoglobin, Arterial 97.9(H) 94.0 - 97.0 % [facility] Carboxyhemoglob in, Arterial 0.3 % [facility] Comment: Nonsmokers: 0.5-1.5% COHB Smokers: Variable, but usually less than 10% Toxic: 20-30% COHB Lethal: Greater than 60% COHB Methemoglobin, Arterial 0.7 <=1.5 % [facility] Na Whole Blood 137 135 - 145 mmol/L [facility] K Whole Blood 4.2 3.5 - 5.0 mmol/L [facility] Comment: Please note: Patients with WBC >100,000 may have falsely elevated Potassium levels. Contact the Clinical Chemistry Laboratory if there are any questions. ICa Whole Blood 1.13(L) 1.15 - 1.33 mmol/L [facility] Comment: Note: ??Total bilirubin higher than 20 mg/dL may lead to falsely low ionized calcium. CL Whole Blood 108(H) 98 - 107 mmol/L [facility] Gluc Whole Bld 136 65 - 199 mg/dL [facility] Comment:Diabetes: >=200 mg/d L plus symptoms. Lactate WB 1.1 0.5 - 2.2 mmol/L [facility] FIO2 Art 100 % [facility] PF Ratio Art 320 [facility] Blood 02/17/2024 1:31 PM EDT 02/17/2024 1:31 PM EDT Hayder Graham MD POINT OF CARE TEST ORDERABLES [facility] [place] [address] * (ABNORMAL) Coox2 (02/17/2024 1:21 PM EDT) pO2, Coox 44 mmHg [facility] Hgb Blood Gas 13.1(L) 13.7 - 16.5 g/dL [facility] Oxyhemoglobin, Coox 76.4 % [facility] Carboxyhemoglo bin, Coox 0.3 % [facility] Comment: Nonsmokers: 0.5-1.5% COHB Smokers: Variable, but usually less than 10% Toxic: 20-30% COHB Lethal: Greater than 60% COHB Methemoglobin, Coox 0.8 <=1.5 % [facility] Source Coox Mixed Venous [facility] Blood 02/17/2024 1:21 PM EDT 02/17/2024 1:21 PM EDT Hayder Graham MD POINT OF CARE TEST ORDERABLES [facility] [place] [address] * (ABNORMAL) BLOOD GAS 2 ARTERIAL (02/17/2024 12:14 PM EDT) pH, Arterial 7.39 7.35 - 7.45 [facility] PCO2, Arterial 40 35 - 45 mmHg [facility] PO2, Arterial 338(H) 85 - 104 mmHg [facility] Bicarbonate, Arterial 23.7 20.0 - 26.0 mmol/L [facility] Base Excess, Arterial -1.3 -3.0 - 3.0 mmol/L [facility] Hgb Blood Gas 11.0(L) 13.7 - 16.5 g/dL [facility] Oxyhemoglobin, Arterial 98.8(H) 94.0 - 97.0 % [facility] Carboxyhemoglob in, Arterial 0.3 % [facility] Comment: Nonsmokers: 0.5-1.5% COHB Smokers: Variable, but usually less than 10% Toxic: 20-30% COHB Lethal: Greater than 60% COHB Methemoglobin, Arterial 0.3 <=1.5 % [facility] Na Whole Blood 135 135 - 145 mmol/L [facility] K Whole Blood 5.1(H) 3.5 - 5.0 mmol/L [facility] Comment: Please note: Patients with WBC >100,000 may have falsely elevated Potassium levels. Contact the Clinical Chemistry Laboratory if there are any questions. ICa Whole Blood 1.13(L) 1.15 - 1.33 mmol/L [facility] Comment: Note: ??Total bilirubin higher than 20 mg/dL may lead to falsely low ionized calcium. CL Whole Blood 106 98 - 107 mmol/L [facility] Gluc Whole Bld 132 65 - 199 mg/dL [facility] Comment:Diabetes: >=200 mg/d L plus symptoms. Lactate WB 1.4 0.5 - 2.2 mmol/L [facility] Blood 02/17/2024 12:1 4 PM EDT 02/17/2024 12:14 PM EDT Hayder Graham MD POINT OF CARE TEST ORDERABLES Performing Organization Address [facility] Co de Phone Number [facility] [place] [address] * (ABNORMAL) Fibrinogen (02/17/2024 12:10 PM EDT) Fibrinogen 154(L) 200 - 393 mg/dL [facility] Comment: OR Result called by ?? LOMARL OR Results read back by: ? alondra pagan at 2024-02-17 12:41:48 A fibrinogen level >100 mg/dL is adequate for hemostasis in most patients without underlying bleeding disorders. Blood 02/17/2024 12:1 0 PM EDT 02/17/2024 12:19 PM EDT Narrative Resulting Agency Comment Spec In Lab Tara York MD HEMATOLOGY ORDERABLE S Performing Organization Address [facility] Co de Phone Number [facility] [place] [address] * (ABNORMAL) Thrombin time (02/17/2024 12:10 PM EDT) Thrombin Time 18(H) 10 - 17 sec [facility] Comment: OR Result called [...] MD HEMATOLOGY ORDERABLE S Performing Organization Address [facility] Co de Phone Number [facility] [place] [address] * APTT (02/17/2024 12:10 PM EDT) Partial Thromboplastin Time 33 25 - 37 sec [facility] Comment: OR Result called [...] MD HEMATOLOGY ORDERABLE S Performing Organization Address [facility]/ZIP Co de Phone Number [facility] [place] [address] * (ABNORMAL) Prothrombin Time (02/17/2024 12:10 PM EDT) Prothrombin Time 16.7(H) 9.4 - 12.5 sec [facility] Comment: OR Result called by ?? LOMARL OR Results read back by: ? alondra pagan at 2024-02-17 12:41:48 International Normalization Ratio 1.5 [facility] Comment: OR Result called [...] Lab Tara York MD HEMATOLOGY ORDERABLE S [facility] [place] [address] * (ABNORMAL) Hemogram (02/17/2024 12:10 PM EDT) White Blood Cell 11.1(H) 4.0 - 9.5 x10(3)/mc L [facility] Red Blood Cell 3.50(L) 4.58 - 5.54 x10(6)/mc L [facility] Hemoglobin 10.4(L) 13.7 - 16.5 g/dL [facility] Hematocrit 30.2(L) 40.5 - 48.5 % [facility] Comment: This result has been called to ALONDRA PAGAN by Eddie López on 02 17 2024 at 1226, and has been read back. Mean Cell Volume 86.3 82.9 - 93.1 fL [facility] Mean Cell Hemoglobin 29.7 27.5 - 32.1 pg [facility] Mean Cell Hemoglobin Concentration 34.4 32.0 - 35.7 g/dL [facility] Platelet 118(L) 145 - 357 x10(3)/mc L [facility] RDW Standard Deviation 40.2 36.0 - 45.0 fL [facility] RDW coefficient of variation 12.8 11.4 - 13.8 % [facility] Mean Platelet Volume 9.5 7.6 - 12.9 fL [facility] NRBC% auto 0.0 % [facility] NRBC Absolute 0.000 0.000 - 0.000 x10(3)/mc L [facility] Blood 02/17/2024 12:1 0 PM EDT 02/17/2024 12:19 PM EDT Narrative Resulting Agency Comment Spec In Lab Tara York MD HEMATOLOGY ORDERABLE S [facility] [place] [address] * (ABNORMAL) BLOOD GAS 2 ARTERIAL (02/17/2024 11:43 AM EDT) pH, Arterial 7.38 7.35 - 7.45 [facility] PCO2, Arterial 40 35 - 45 mmHg [facility] PO2, Arterial 304(H) 85 - 104 mmHg [facility] Bicarbonate, Arterial 23.2 20.0 - 26.0 mmol/L [facility] Base Excess, Arterial -1.9 -3.0 - 3.0 mmol/L [facility] Hgb Blood Gas 11.1(L) 13.7 - 16.5 g/dL [facility] Oxyhemoglobin, Arterial 98.6(H) 94.0 - 97.0 % [facility] Carboxyhemoglob in, Arterial 0.3 % [facility] Comment: Nonsmokers: 0.5-1.5% COHB Smokers: Variable, but usually less than 10% Toxic: 20-30% COHB Lethal: Greater than 60% COHB Methemoglobin, Arterial 0.3 <=1.5 % [facility] Na Whole Blood 133(L) 135 - 145 mmol/L [facility] K Whole Blood 6.2(Critic al) 3.5 - 5.0 mmol/L [facility] Comment: Noted by hearing instrument specialist. Please note: Patients with WBC >100,000 may have falsely elevated Potassium levels. Contact the Clinical Chemistry Laboratory if there are any questions. ICa Whole Blood 0.97(L) 1.15 - 1.33 mmol/L [facility] Comment: Note: ??Total bilirubin higher than 20 mg/dL may lead to falsely low ionized calcium. CL Whole Blood 104 98 - 107 mmol/L [facility] Gluc Whole Bld 128 65 - 199 mg/dL [facility] Comment:Diabetes: >=200 mg/d L plus symptoms. Lactate WB 1.1 0.5 - 2.2 mmol/L [facility] Blood 02/17/2024 11:4 3 AM EDT 02/17/2024 11:43 AM EDT Hayder Graham MD POINT OF CARE TEST ORDERABLES [facility] [place] [address] * (ABNORMAL) BLOOD GAS 2 ARTERIAL (02/17/2024 11:08 AM EDT) pH, Arterial 7.38 7.35 - 7.45 [facility] PCO2, Arterial 38 35 - 45 mmHg [facility] PO2, Arterial 334(H) 85 - 104 mmHg [facility] Bicarbonate, Arterial 22.0 20.0 - 26.0 mmol/L [facility] Base Excess, Arterial -3.2(L) -3.0 - 3.0 mmol/L [facility] Hgb Blood Gas 10.8(L) 13.7 - 16.5 g/dL [facility] Oxyhemoglobin, Arterial 98.7(H) 94.0 - 97.0 % [facility] Carboxyhemoglob in, Arterial 0.3 % [facility] Comment: Nonsmokers: 0.5-1.5% COHB Smokers: Variable, but usually less than 10% Toxic: 20-30% COHB Lethal: Greater than 60% COHB Methemoglobin, Arterial 0.3 <=1.5 % [facility] Na Whole Blood 131(L) 135 - 145 mmol/L [facility] K Whole Blood 6.4(Critic al) 3.5 - 5.0 mmol/L [facility] Comment: Noted by hearing instrument specialist. Please note: Patients with WBC >100,000 may have falsely elevated Potassium levels. Contact the Clinical Chemistry Laboratory if there are any questions. ICa Whole Blood 0.98(L) 1.15 - 1.33 mmol/L [facility] Comment: Note: ??Total bilirubin higher than 20 mg/dL may lead to falsely low ionized calcium. CL Whole Blood 104 98 - 107 mmol/L [facility] Gluc Whole Bld 127 65 - 199 mg/dL [facility] Comment:Diabetes: >=200 mg/d L plus symptoms. Lactate WB 1.0 0.5 - 2.2 mmol/L [facility] Blood 02/17/2024 11:0 8 AM EDT 02/17/2024 11:08 AM EDT Hayder Graham MD POINT OF CARE TEST ORDERABLES Performing Organization Address [facility]/ZIP Co de Phone Number [facility] [place] [address] * (ABNORMAL) Hemoglobin and Hematocrit, blood (02/17/2024 11:04 AM EDT) Pathologist [facility] Hemoglobin 9.6(L) 13.7 - 16.5 g/dL [facility] Hematocrit 28.0(L) 40.5 - 48.5 % [facility] Comment: This result has been called to ALONDRA PAGAN by Eddie López on 02 17 2024 at 1120, and has been read back. Blood 02/17/2024 11:0 4 AM EDT 02/17/2024 11:12 AM EDT Narrative Resulting Agency Comment Spec In Lab Hayder Graham MD HEMATOLOGY ORDERABL ES Performing Organization Address City/[facility]/ZIP Co de Phone Number [facility] [place] [address] * (ABNORMAL) Platelet count (02/17/2024 11:04 AM EDT) Pathologist [facility] Platelet 106(L) 145 - 357 x10(3)/mc L [facility] Immature Plt % 1.6 0.0 - 7.4 % [facility] Comment: Limitation of the Immature Platelet Fraction (IPF)-May be less reliable when the platelet count is less than 18o576/uL due to statistical imprecision. The IPF value [...] in a decreased state of production. References: [employer] The Clinical Value of the Immature Platelet Fraction (IPF) in Cell Recovery Document Number [id number] 03/2011 [employer] The Role of the Immature Platelet Fraction (IPF) in the Differential Diagnosis of Thrombocytopenia, Document [id number] V002/15/14 P014 Blood 02/17/2024 11:0 4 AM EDT 02/17/2024 11:12 AM EDT Narrative Resulting Agency Comment Spec In Lab Hayder Graham MD HEMATOLOGY ORDERABL ES Performing Organization Address City/State/[facility] Co de Phone Number [facility] [place] [address] * (ABNORMAL) Fibrinogen (02/17/2024 11:04 AM EDT) Fibrinogen 149(L) 200 - 393 mg/dL [facility] Comment: OR Result called by ?? SALVLT OR Results read back by: ? Alondra Pagan at 2024-02-17 11:30:47 A fibrinogen level >100 mg/dL is adequate for hemostasis in most patients without underlying bleeding disorders. Blood 02/17/2024 11:0 4 AM EDT 02/17/2024 11:12 AM EDT Narrative Resulting Agency Comment Spec In Lab Hayder Graham MD HEMATOLOGY ORDERABL ES [facility] [place] [address] * (ABNORMAL) BLOOD GAS 2 ARTERIAL (02/17/2024 10:41 AM EDT) pH, Arterial 7.37 7.35 - 7.45 [facility] PCO2, Arterial 44 35 - 45 mmHg [facility] PO2, Arterial 335(H) 85 - 104 mmHg [facility] Bicarbonate, Arterial 24.9 20.0 - 26.0 mmol/L [facility] Base Excess, Arterial -0.4 -3.0 - 3.0 mmol/L [facility] Hgb Blood Gas 11.5(L) 13.7 - 16.5 g/dL [facility] Oxyhemoglobin, Arterial 98.9(H) 94.0 - 97.0 % [facility] Carboxyhemoglob in, Arterial 0.1 % [facility] Comment: Nonsmokers: 0.5-1.5% COHB Smokers: Variable, but usually less than 10% Toxic: 20-30% COHB Lethal: Greater than 60% COHB Methemoglobin, Arterial 0.3 <=1.5 % [facility] Na Whole Blood 132(L) 135 - 145 mmol/L [facility] K Whole Blood 5.9(H) 3.5 - 5.0 mmol/L [facility] Comment: Please note: Patients with WBC >100,000 may have falsely elevated Potassium levels. Contact the Clinical Chemistry Laboratory if there are any questions. ICa Whole Blood 1.02(L) 1.15 - 1.33 mmol/L [facility] Comment: Note: ??Total bilirubin higher than 20 mg/dL may lead to falsely low ionized calcium. CL Whole Blood 104 98 - 107 mmol/L [facility] Gluc Whole Bld 129 65 - 199 mg/dL [facility] Comment:Diabetes: >=200 mg/d L plus symptoms. Lactate WB 1.1 0.5 - 2.2 mmol/L [facility] Blood 02/17/2024 10:4 1 AM EDT 02/17/2024 10:41 AM EDT Hayder Graham MD POINT OF CARE TEST ORDERABLES [facility] [place] [address] * (ABNORMAL) BLOOD GAS 2 ARTERIAL (02/17/2024 10:06 AM EDT) pH, Arterial 7.38 7.35 - 7.45 [facility] PCO2, Arterial 42 35 - 45 mmHg [facility] PO2, Arterial 329(H) 85 - 104 mmHg [facility] Bicarbonate, Arterial 24.7 20.0 - 26.0 mmol/L [facility] Base Excess, Arterial -0.3 -3.0 - 3.0 mmol/L [facility] Hgb Blood Gas 11.0(L) 13.7 - 16.5 g/dL [facility] Oxyhemoglobin, Arterial 99.0(H) 94.0 - 97.0 % [facility] Carboxyhemoglob in, Arterial 0.3 % [facility] Comment: Nonsmokers: 0.5-1.5% COHB Smokers: Variable, but usually less than 10% Toxic: 20-30% COHB Lethal: Greater than 60% COHB Methemoglobin, Arterial 0.3 <=1.5 % [facility] Na Whole Blood 132(L) 135 - 145 mmol/L [facility] K Whole Blood 6.0(H) 3.5 - 5.0 mmol/L [facility] Comment: Please note: Patients with WBC >100,000 may have falsely elevated Potassium levels. Contact the Clinical Chemistry Laboratory if there are any questions. ICa Whole Blood 0.97(L) 1.15 - 1.33 mmol/L [facility] Comment: Note: ??Total bilirubin higher than 20 mg/dL may lead to falsely low ionized calcium. CL Whole Blood 102 98 - 107 mmol/L [facility] Gluc Whole Bld 123 65 - 199 mg/dL [facility] Comment:Diabetes: >=200 mg/d L plus symptoms. Lactate WB 1.1 0.5 - 2.2 mmol/L [facility] Blood 02/17/2024 10:0 6 AM EDT 02/17/2024 10:06 AM EDT Hayder Graham MD POINT OF CARE TEST ORDERABLES [facility] [place] [address] * Surgical Pathology Report (02/17/2024 10:01 AM EDT) Final Diagnosis [id number] ? Location: [facility]; [facility]; The signing pathologist has (i) examined the relevant preparation(s) for the specimen(s) and (ii) rendered or confirmed the diagnosis(es). . ?Surgical Pathology DIAGNOSIS Aortic valve leaflets, excision: Valve leaflets with myxoid degeneration, nodular fibrosis and dystrophic calcifications. Electronically signed by: ?Lindsay FERNANDEZ, Livier Gonzalez Verified: ??02/24/2024 13:49 ??Pathologist Performed at: ??-[facility] Dept. of Pathology, [place] [address] Director Of Professional Services: Job Brewer MD, FCAP, ??CLIA Certificate: [id number] SPECIMEN(S) SUBMITTED A - Aortic Valve Leaflets, [...] Sections Processing Blocks submitted for decalcification: A1. [place] sections in 1 cassette labeled A1. ??ajw 02/24/2024 1:49 PM EDT [facility] AORTIC STRUCTURE / Unknown 02/17/2024 10:01 AM EDT 02/17/2024 10:01 AM EDT Hayder Graham MD PATHOLOGY/CYTOLOGY ORDERABLES Performing Organization Address City/[facility]/ZIP Co de Phone Number [facility] [place] [address] * Specimen to Pathology (02/17/2024 10:01 AM EDT) AP Specimen 02/17/2024 10:0 1 AM EDT 02/17/2024 10:01 AM EDT Narrative [facility] - 02/17/2024 10:01 AM EDT Specimen requisition ordered. ??Separate Pathology report to follow Hayder Graham MD PATHOLOGY/CYTOLOGY ORDERABLES Performing Organization Address City/[facility]/ZIP Co de Phone Number [facility] [place] [address] * (ABNORMAL) BLOOD GAS 2 ARTERIAL (02/17/2024 9:35 AM EDT) pH, Arterial 7.33(L) 7.35 - 7.45 [facility] PCO2, Arterial 35 35 - 45 mmHg [facility] PO2, Arterial 318(H) 85 - 104 mmHg [facility] Bicarbonate, Arterial 17.9(L) 20.0 - 26.0 mmol/L [facility] Base Excess, Arterial -8.0(L) -3.0 - 3.0 mmol/L [facility] Hgb Blood Gas 11.0(L) 13.7 - 16.5 g/dL [facility] Oxyhemoglobin, Arterial 98.8(H) 94.0 - 97.0 % [facility] Carboxyhemoglob in, Arterial 0.3 % [facility] Comment: Nonsmokers: 0.5-1.5% COHB Smokers: Variable, but usually less than 10% Toxic: 20-30% COHB Lethal: Greater than 60% COHB Methemoglobin, Arterial 0.3 <=1.5 % [facility] Na Whole Blood 131(L) 135 - 145 mmol/L [facility] K Whole Blood 5.8(H) 3.5 - 5.0 mmol/L [facility] Comment: Please note: Patients with WBC >100,000 may have falsely elevated Potassium levels. Contact the Clinical Chemistry Laboratory if there are any questions. ICa Whole Blood 0.98(L) 1.15 - 1.33 mmol/L [facility] Comment: Note: ??Total bilirubin higher than 20 mg/dL may lead to falsely low ionized calcium. CL Whole Blood 101 98 - 107 mmol/L [facility] Gluc Whole Bld 122 65 - 199 mg/dL [facility] Comment:Diabetes: >=200 mg/d L plus symptoms. Lactate WB 0.8 0.5 - 2.2 mmol/L [facility] Blood 02/17/2024 9:35 AM EDT 02/17/2024 9:35 AM EDT Hayder Graham MD POINT OF CARE TEST ORDERABLES [facility] [place] [address] * (ABNORMAL) BLOOD GAS 2 VENOUS (02/17/2024 9:34 AM EDT) pH, Venous 7.22(Criti marquez) 7.32 - 7.42 [facility] Comment:Noted by hearing instrument specialist. PCO2, Venous 43 41 - 51 mmHg [facility] Comment:Noted by hearing instrument specialist. PO2, Venous 57(H) 25 - 40 mmHg [facility] Comment:Noted by hearing instrument specialist. Bicarbonate, Venous 17.1 mmol/L [facility] Comment:Noted by hearing instrument specialist. Base Excess, Venous -10.6 mmol/L [facility] Comment:Noted by hearing instrument specialist. Hgb Blood Gas 11.2(L) 13.7 - 16.5 g/dL [facility] Comment:Noted by hearing instrument specialist. Oxyhemoglobin, Venous 86.5 % [facility] Comment:Noted by hearing instrument specialist. Carboxyhemoglob in, Venous 0.3 % [facility] Comment: Noted by hearing instrument specialist. Nonsmokers: 0.5-1.5% COHB Smokers: Variable, but usually less than 10% Toxic: 20-30% COHB Lethal: Greater than 60% COHB Methemoglobin, Venous 0.0 <=1.5 % [facility] Comment:Noted by hearing instrument specialist. Na Whole Blood 156(H) 135 - 145 mmol/L [facility] Comment:Noted by hearing instrument specialist. K Whole Blood 5.5(H) 3.5 - 5.0 mmol/L [facility] Comment: Noted by hearing instrument specialist. Please note: Patients with WBC >100,000 may have falsely elevated Potassium levels. Contact the Clinical Chemistry Laboratory if there are any questions. ICa Whole Blood 1.03(L) 1.15 - 1.33 mmol/L [facility] Comment: Noted by hearing instrument specialist. Note: ??Total bilirubin higher than 20 mg/dL may lead to falsely low ionized calcium. CL Whole Blood 100 98 - 107 mmol/L [facility] Comment:Noted by hearing instrument specialist. Gluc Whole Bld 132 65 - 199 mg/dL [facility] Comment: Noted by hearing instrument specialist. Diabetes: >=200 mg/dL plus symptoms Lactate WB 1.0 0.5 - 2.2 mmol/L [facility] Comment:Noted by hearing instrument specialist. Blood Gas Source Venous [facility] Blood 02/17/2024 9:34 AM EDT 02/17/2024 9:34 AM EDT Hayder Graham MD POINT OF CARE TEST ORDERABLES [facility] [place] [address] * (ABNORMAL) BLOOD GAS 2 ARTERIAL (02/17/2024 8:07 AM EDT) pH, Arterial 7.43 7.35 - 7.45 [facility] PCO2, Arterial 34(L) 35 - 45 mmHg [facility] PO2, Arterial 581(H) 85 - 104 mmHg [facility] Bicarbonate, Arterial 21.7 20.0 - 26.0 mmol/L [facility] Base Excess, Arterial -2.6 -3.0 - 3.0 mmol/L [facility] Hgb Blood Gas 14.5 13.7 - 16.5 g/dL [facility] Oxyhemoglobin, Arterial 99.0(H) 94.0 - 97.0 % [facility] Carboxyhemoglob in, Arterial 0.4 % [facility] Comment: Nonsmokers: 0.5-1.5% COHB Smokers: Variable, but usually less than 10% Toxic: 20-30% COHB Lethal: Greater than 60% COHB Methemoglobin, Arterial 0.3 <=1.5 % [facility] Na Whole Blood 139 135 - 145 mmol/L [facility] K Whole Blood 4.0 3.5 - 5.0 mmol/L [facility] Comment: Please note: Patients with WBC >100,000 may have falsely elevated Potassium levels. Contact the Clinical Chemistry Laboratory if there are any questions. ICa Whole Blood 1.09(L) 1.15 - 1.33 mmol/L [facility] Comment: Note: ??Total bilirubin higher than 20 mg/dL may lead to falsely low ionized calcium. CL Whole Blood 106 98 - 107 mmol/L [facility] Gluc Whole Bld 100 65 - 199 mg/dL [facility] Comment:Diabetes: >=200 mg/d L plus symptoms. Lactate WB 1.3 0.5 - 2.2 mmol/L [facility] Blood 02/17/2024 8:07 AM EDT 02/17/2024 8:07 AM EDT Hayder Graham MD POINT OF CARE TEST ORDERABLES Performing Organization Address [facility] Co de Phone Number [facility] [place] [address] * POCT Glucose (02/17/2024 6:38 AM EDT) Glucose, POC 98 65 - 199 mg/dL [facility] Comment: Supplemental ranges: <140 mg/dL before meals <180 mg/dL all other times of the day Blood 02/17/2024 6:38 AM EDT 02/17/2024 6:38 AM EDT Hayder Graham MD POINT OF CARE TEST ORDERABLES Performing Organization Address [facility] Co de Phone Number [facility] [place] [address] * Transesophageal Echo/OR (02/17/2024 6:33 AM EDT) Anatomical Region Laterality Modality Cardiac Other 02/17/2024 6:33 AM EDT Narrative 02/17/2024 4:08 PM EDT ? Version: 1 Name: PATENAUDE, AKRLOS ?Study Date: 02/17/2024, 6: 33 AM ?Patient [...] of the exam is unchanged from prior. EMAM was performed at the surgeon? s request. [...] complete [facility]esophageal echocardiogram [facility]-operative and post-operative evaluation of cardiac function [...] are indicated., Routine 0021 (Given - Provider: Ploo Britton RN)0625 (Given - Provider: Polo Britton [...] Mishel Merrill, COLBY)2115 (Given - Provider: Otis Crook, COLBY) 0836 (Given - Provider: Jazlyn Maldonado RN) aspirin chewable tablet 81 mg 81 mg, Oral, DAILY, First dose on Sat02/23/24 at 0945, Until Discontinued, Routine 0910 (Given - Provider: Mishel Merrill, COLBY) 0835 [...] RN) 09 (Given - Provider: Mishel Merrill, COLBY)2116 [...] Merrill, COLBY)1500 (Given - Provider: Mishel Merrill RN)211 (Given - Provider: Otis Crook RN) 0836 (Given - Provider: Jazlyn Maldonado, COLBY) lidocaine (Lidoderm) 5% patch 1 patch 1 patch, Transdermal, Administer over 12 Hours, DAILY, First dose on Sat02/18/24 at 1445, Until Discontinued, Apply patch(es) for 12 hours, and then remove for 12 hours., Routine 821 (Patch Applied - Provider: Reilly Vincent, RN)2021 (Patch Removed - Provider: Polo Britton RN) 907 (Patch Applied - Provider: Mishel Merrill, RN)2107 (Patch Removed - Provider: Otis Crook, RN) 0836 (Not Given - Provider: Jazlyn Maldonado, COLBY - Reason: Patient/family refused) metoprolol tartrate (Lopressor) tablet 100 mg 100 mg, Oral, EVERY 12 HOURS SCHEDULED (2 times per day), First dose (after last modification) on Sat02/23/24 at 0945, Until Discontinued, Hold for HR<60 and or SBP<90, Routine 910 (Given - Provider: Mishel Merrill, COLBY)2114 (Given - Provider: Otis Crook, COLBY) 08 (Given - Provider: Jazlyn Maldonado, COLBY) metoproloL [...] 08 (Given - Provider: Reilly Vincent RN) 0907 [...] COLBY)1001 (New Bag - Provider: Ingrid Menjivar, RN)1201 (Stopped - Provider: Reilly Vincent RN) [...] Mishel Merrill, RN)2325 (Given - Provider: Otis Crook, COLBY) 0930 (Not Given - Provider: Jazlyn Maldonado, COLBY - Reason: Patient/family refused - Comment: d/c today) tamsulosin (Flomax) capsule 0.4 mg 0.4 mg, Oral, DAILY, First dose on Sat02/18/24 at 0930, Until Discontinued, DO NOT CRUSH OR CHEW, Routine 0821 (Given - Provider: Reilly Vincent, RN) 0907 (Given - Provider: Mishel Merrill, RN) 0836 (Given - Provider: Jazlyn Maldonado, RN) timoloL (Timoptic) 0.5 % ophthalmic solution 1 drop 1 drop, Both Eyes, DAILY, First dose on Sat02/18/24 at 0930, Until Discontinued, Routine 0823 (Given - Provider: Reilly Vincent, COLBY) 0908 (Given - Provider: Mishel Merrill, RN) 0839 (Given - Provider: Jazlyn Maldonado, RN) Continuous Medication Order 02/22/2024 02/23/2024 02/24/2024 dextrose 5% and sodium chloride 0.45% infusion (CANCELED) 50 mL/hr, Intravenous, CONTINUOUS, Starting on Sat02/21/24 at 1015, Until 02/23/24 at 0847 0128 (New Bag - Provider: [...] Reilly Vincent, COLBY)1409 (Given - Provider: Ingrid Menjivar RN)2101 (Given [...] Routine documented in this encounter Care Teams Residential Recycle Driver Relationship Specialty Start Date End Date Aparna Jordan APRN PCP - General Family Medicine 10/21/23 05/26/24 documented as of this encounter
--- OUTSIDE RECORDS SUMMARY | 2024-05-29 08:21 | XMS_ITS | Encounter Summary ---
Author Organization [facility] Address [facility] [place] [address] Care Team Providers Care Clerical Aide Name Role Phone Vanessa Christian MAURI Primary Care Provider [phone] Encounter Details Date Type Department Care Team (Latest Contact Info) Description 01/09/2024 3:02 PM EDT - 01/09/2024 11:59 PM EDT Hospital Encounter XRay at [address] [place] [address] Zak Farmer MD [facility] [place] [address] Nonrheumatic aortic valve stenosis Discharge Disposition: Home Social History Tobacco Use Types Packs/Day Years Used Date Smoking Tobacco: Former Cigarettes Smokeless Tobacco: Never Comments:Quit 15 + years ago Alcohol Use Standard Drinks/Week Comments Yes 0 (1 standard drink = 0.6 oz pur e alcohol) rare [facility] Inpatient Questions Answer Date Recorded Prevent Contact [...] PM EST Office Visit Cardiology at [address] [place] [address] Neftali Ernandez MD [facility] [place] [address] documented as of this encounter Procedures Procedure [...] disorders documented in this encounter Care Teams Clerical Aide Relationship Specialty Start Date End Date Vanessa Christian APRN PCP - General Family Medicine 10/21/23 05/26/24 documented as of this encounter
--- OUTSIDE RECORDS SUMMARY | 2024-05-29 08:21 | XMS_ITS | Encounter Summary ---
Author Organization [facility] Address [facility] [place] [address] Care Team Providers Care Dental Technician Apprentice Name Role Phone Vanessa Christian MAURI Primary Care Provider [phone] Reason for Visit * Consultation (Routine) - Closed Specialty Diagnoses / Procedures Referred By Contac t Referred To Contact Cardiac Surgery Diagnoses Nonrheumatic aortic valve stenosis significant - TAVR ( defers to Card Surg d/t age) Neftali Ernandez MD [facility] [place] [address] Zak Farmer MD [facility] [place] [address] Referral ID Status Reason Start Date Expiration Date V isits Requested Visits Authorized [id number] Closed Consult, Test & Treat 10/21/2023 10/20/2024 1 1 Encounter Details Date Type Department Care Team (Late st Contact Info) Description 01/09/2024 1:40 PM EDT Office [place] [address] Zak Farmer MD [facility] [place] [address] Nonrheumatic aortic valve stenosis Social [...] office. Best personal regards, Zak Farmer MD [phone] In aggregate 55 minutes were spent evaluating [...] 3:00 PM EST Office Visit Cardiology at [address] [place] [address] Neftlai Ernandez MD [facility] [place] [address] documented as of this encounter Results * [...] have questions please contact the health child day care teacher that requested your imaging first. ? [...] who have questions please contactthe health child day care teacher that requested your imaging first. Zak Farmer MD IMG DX ORDERABLES * Basic Metabolic Panel (non-fasting) (01/09/2024 2:58 PM EDT) Glucose 102 65 - 199 mg/dL [facility] Comment:Diabetes: >=200 mg/d L plus symptoms Blood Urea Nitrogen 15 10 - 20 mg/dL [facility] Creatinine 0.94 0.80 - 1.50 mg/dL [facility] Sodium 137 135 - 145 mmol/L [facility] Potassium 4.5 3.5 - 5.0 mmol/L [facility] Comment: Please note: ??Patients with WBC >100,000 may have falsely elevated Potassium levels. ??For accurate Potassium quantification in these patients send serum separator tube (gold top) for subsequent determinations. ??Contact the Clinical Chemistry Laboratory if there are any questions. Chloride 103 98 - 107 mmol/L [facility] Carbon Dioxide 27 22 - 31 mmol/L [facility] Anion Gap 7 5 - 15 mmol/L [facility] Calcium 9.5 8.5 - 10.5 mg/dL [facility] Est Glomerular Filtration Rate 91 >=60 mL/min/1. 73 m?? [facility] [...] Lab Zak Farmer MD CHEMISTRY ORDERABLE S [facility] [place] [address] * Hepatic Function Panel (01/09/2024 2:58 PM EDT) Pathologist [facility] Protein, Total 6.7 6.1 - 8.0 g/dL [facility] Albumin 4.5 3.2 - 5.2 g/dL [facility] Aspartate Aminotransferase 21 0 - 39 unit/L [facility] Alanine Aminotransferase 21 0 - 55 unit/L [facility] Alkaline Phosphatase 81 40 - 130 unit/L [facility] Bilirubin, Total 0.7 0.2 - 1.3 mg/dL [facility] Bilirubin, Direct 0.2 0.0 - 0.3 mg/dL [facility] Blood 01/09/2024 2:58 PM EDT 01/09/2024 3:03 PM EDT Narrative Resulting Agency Comment Spec In Lab Zak Farmer MD CHEMISTRY ORDERABLE S Performing Organization Address [facility] Co de Phone Number [facility] [place] [address] * Prothrombin Time (01/09/2024 2:58 PM EDT) [facility] Prothrombin Time 10.6 9.4 - 12.5 sec [facility] International Normalization Ratio 0.9 [facility] Comment: An INR <2.0 indicates [...] MD HEMATOLOGY ORDERABL ES Performing Organization Address [facility]/ZIP Co de Phone Number [facility] [place] [address] * Type and Screen Future Surgery, [facility] SAME DAY PRO[facility] ONLY) (01/09/2024 2:58 PM EDT) ABORH Type O NEGATIVE [facility] Patient BB History Not Found [facility] Expires at 2359 on: 02-20-2024 [facility] Ab Screen Interp Negative [facility] Blood 01/09/2024 2:58 PM EDT 01/09/2024 2:58 PM EDT Narrative Resulting Agency Comment Spec In Lab Zak Farmer MD BLOOD BANK LAB CECILIO ALE[facility] Organization Address City/State/ZIP Co de Phone Number [facility] [place] [address] documented in this encounter Visit Diagnoses Diagnosis Nonrheumatic aortic valve stenosis Aortic valve disorders Nonrheumatic aortic valve stenosis Aortic valve disorders documented in this encounter Care Teams Dental Technician Apprentice Relationship Specialty Start Date End Date Vanessa Christian APRN PCP - General Family Medicine 10/21/23 05/26/24 documented as of this encounter
--- OUTSIDE RECORDS SUMMARY | 2024-05-29 08:21 | XMS_ITS | Encounter Summary ---
Author Organization [facility] [address] Care Team Providers Care Marketing Intelligence Manager Name Role Phone Vanessa Christian APRN Primary Care Provider [phone] Encounter Details Date Type Department Care Team [...] 3:00 PM EST Office Visit Cardiology at [address] [place] [phone] Neftali Ernandez MD [facility] [place] [address] documented as of this encounter Visit Diagnoses Not on filedocumented in this encounter Care Teams Marketing Intelligence Manager Relationship Specialty Start Date End Date Vanessa Christian APRN PCP - General Family Medicine 10/21/23 05/26/24 documented as of this encounter
--- OUTSIDE RECORDS SUMMARY | 2024-05-29 08:21 | XMS_ITS | Encounter Summary ---
Author Organization [facility] [place] [address] Care Team Providers Care Cello Teacher Name Role Phone Vanessa Christian MAURI Primary Care Provider [phone] Reason for Visit * Auth/Cert (Routine) Specialty [...] W RHC (WRVU 5.9) Rima Dickinson MD [facility] [place] [address] [facility] Referral ID Status Reason Start Date Expiration Date Visits Re quested Visits Authorized [id number] 1 1 Encounter Details Date Type Department Care Team (Latest Contact Info) Description 02/03/2024 8:06 AM EDT - 02/03/2024 2:54 PM EDT Hospital Encounter [place] [address] Rima Dickinson MD [facility] [place] [address] Screening for cardiovascular condition; Aortic valve stenosis, [...] lbs Follow-up Visits Follow up with your pillowcase maker in 2-4 weeks Access Site 'Black and Blue' and tenderness is expected during the first week Call if you noted a mass (lump) greater than the size of a ellis Call Office with any Questions and if you have any of the following Clarence Lane M.D Interventional Commercial Painter Roving Sizer #: [phone] * Attachments The following attachments cannot be sent through Care Everywhere. * CAD (Coronary Artery Disease): General Info (Slovenian) * Coronary Angiogram: Post-op (Slovenian) documented in this encounter Medications at Time [...] Lane MD - 02/03/2024 11:48 AM EDT [facility] Interventional Cardiology Adult Pre-Procedure H&P Update: Cardiac Catheterization Karlos Anthony [id number] 1960 Chief Complaint: Aortic stenosis HPI: Mr. [...] is inthe chart Clarence Lane MD Interventional Commercial Painter 02/03/24 11:48 AM documented in this encounter Miscellaneous Notes * Brief Op Note - Clarence Lane MD - 02/03/2024 12:51 PM EDT Preliminary Cardiac Catheterization Procedure Note: Patient Name: Karlos Anthony : [id number] MR#: [id number] Case Date: 02/03/2024 Roving Sizer: Surgeon(s) and Role: * Saira Lua MD [...] 3:00 PM EST Office Visit Cardiology at [address] [address] Neftali Ernandez MD [facility] [place] [address] Scheduled Orders Name Type Priority Associated Diagnoses [...] Modality Other Narrative 02/12/2024 3:47 PM EDT ?[facility] ? Cardiac Catheterization/Intervention Report ? Patient Name: Patenaude, Karlos ? Procedure Date: 02/03/2024 ? A #: [id number] ? Primary Physician: Saira Lua ? Case #: [id number] ? File Name: [id number] ? Catheterization Order Number: [id number] ? [facility] ? Final Report [place], [place] ? Patient Name: ? Karlos Patenaude ? ID#: ?[id number] ? : ?1960 ? Procedure Date: ? February 03, 2024 ? Case #: ? [id number] ? Room: ? 5 ? Case Physician: ? Emad Mogadam, M.D. ? Start: ?12:29 ?Fellow: ? Clarence N beamarilisa, M.D. ? Admission: ??02/03/2024 ? Referring Physician: [...] Procedure Note Saira Lua MD - 02/12/2024 [facility] Cardiac Catheterization/Intervention Report Patient Name: Karlos Anthony Procedure Date: 02/03/2024 A #: [id number] Primary Physician: Saira Lua Case #: [id number] File Name: [id number] Catheterization Order Number: [id number] [facility] FinalReport [place], [place] Patient Name: Karlos Anthony ID#:[id number] :1960 Procedure Date: February 03, 2024 Case [...] as ASA Class III. The [facility] clinical frailty scale is 3: Managing Well. [...] (Bezet) 372 ms MUSE SYSTEM Calculated P [place] 59 degrees MUSE SYSTEM Calculated R [place] 34 degrees MUSE SYSTEM Calculated T [place] 63 degrees MUSE SYSTEM INTERPRETATION Sinus bradycardia [...] MD) documented in this encounter Care Teams Cello Teacher Relationship Specialty Start Date End Date Vanessa Christian APRN PCP - General Family Medicine 10/21/23 05/26/24 documented as of this encounter
--- OUTSIDE RECORDS SUMMARY | 2024-05-29 08:21 | XMS_ITS | Encounter Summary ---
[place] [address] Care Team Providers Care Supervisor Brooder Farm Name Role Phone Victor M Lafleur MD Primary Care Provider [phone] Reason for Visit * Reason Onset Date Comments Referral 09/20/2023 Encounter Details Date Type Department Care Team (Late st Contact Info) Description 09/20/2023 Telephone Cardiology at [address] [address] Karen Billy, convention services director Social History Tobacco Use Types Packs/Day Years [...] PM EST Office Visit Cardiology at [address] [place] [address] Neftali Ernandez MD [facility] [place] [address] documented as of this encounter Visit Diagnoses Not on filedocumented in this encounter Care Teams Supervisor Brooder Farm Relationship Specialty Start Date End Date Victor M Lafleur MD PCP - General 10/02/13 10/20/23 documented as of this encounter
--- OUTSIDE RECORDS SUMMARY | 2024-06-01 08:05 | XMS_ITS | Referral Summary ---
Author Organization [facility] Address [address] [place] [address] Care Team Providers Care Business Line Manager Name Role Phone Filidayna Vanessa Sherman NP Primary Care Provider [phone] Social History Tobacco Use Types Packs/Day Years Used Date Smoking Tobacco: Never Assessed Sex and Gender Information Value Date Recorded Sex Assigned at Not on file Gender Identity Not on file Sexual Orientation Not on file Plan of Treatment Not on file Care Teams Business Line Manager Relationship Specialty Start Date End Date Vanessa Christian NP [address] [place] [address] PCP - General Family Medicine - Primary Care 10/07/23
--- OUTSIDE RECORDS SUMMARY | 2024-06-01 08:05 | XMS_ITS | Encounter Summary ---
Author Organization [facility] Address [facility] [place] [address] Care Team Providers Care Seasonal Clerk Name Role Phone Vanessa Christian WIRE PREPARATION MACHINE TENDER Primary Care Provider [phone] Encounter Details Date Type Department Care Team (Late st Contact Info) Description 03/12/2024 2:40 PM EDT Office [place] [phone] Zak Farmer MD [facility] [place] [address] Coronary artery disease, unspecified vessel or lesion type, unspecified whether angina present, unspecified whether jackson or transplanted heart Social History Tobacco Use Types Packs/Day Years Used Date Smoking Tobacco: Former Cigarettes Smokeless Tobacco: Never Comments:Quit 15 + years ago Alcohol Use Standard Drinks/Week Comments Yes 0 (1 standard drink = 0.6 oz pur e alcohol) rare [facility] Utilities Answer Date Recorded In the past 12 months has e [employer], gas, oil, or water [employer] threatened to shut off services in your [...] 2:40 PM EDT To: MD Vanessa Coles, WIRE PREPARATION MACHINE TENDER Re; Karlos Santa ( 1960) We had [...] office. Best personal regards, Zak Farmer MD [phone] documented in this encounter Plan of Treatment Upcoming Encounters Date Type Department Care Team (Late st Contact Info) Description 11/30/2024 3:00 PM EST Office Visit Cardiology at [address] [place] [address] Neftali Ernandez MD [facility] [place] [address] documented as of this encounter Procedures Procedure Name Priority Date/Time Associated Diagnosis Comments EKG 12-LEAD Routine 03/12/2024 2:35 PM EDT Coronary artery disease, unspecified vessel or lesion type, unspecified whether angina present, unspecified whether jackson or transplanted heart documented in this encounter Results * EKG 12 Lead (03/12/2024 2:35 PM EDT) Ventricular rate 59 BPM MUSE SYSTEM Atrial Rate 59 BPM MUSE SYSTEM P-R Interval 190 ms MUSE SYSTEM QRS Duration 92 ms MUSE SYSTEM Q-T Interval 406 ms MUSE SYSTEM QTC Calculated (Bezet) 401 ms MUSE SYSTEM Calculated P [place] -12 degrees MUSE SYSTEM Calculated R [place] 24 degrees MUSE SYSTEM Calculated T [place] 74 degrees MUSE SYSTEM INTERPRETATION Sinus bradycardia T wave abnormality, consider anterior ischemia Abnormal ECG When compared with ECG of 17-FEB-2024 13:24, [place] interval has decreased T wave inversion now evident in Anterior leads Confirmed by Paul Guzman ([id number]) on 03/15/2024 8:36:23 AM MUSE SYSTEM 03/12/2024 2:35 PM EDT 03/15/2024 8:36 AM EDT Zak Farmer MD ECG ORDERABLES MUSE SYSTEM documented in this encounter Visit Diagnoses Diagnosis Coronary artery disease, unspecified vessel or lesion type, unspecified whether angina present, unspecified whether jackson or transplanted heart documented in this encounter Care Teams Seasonal Clerk Relationship Specialty Start Date End Date Vanessa Christian APRN PCP - General Family Medicine 10/21/23 05/26/24 documented as of this encounter
--- OUTSIDE RECORDS SUMMARY | 2024-06-01 08:05 | XMS_ITS | Encounter Summary ---
Author Organization [facility] Address [facility] [place] [address] Care Team Providers Care Car Rental Agency Manager Name Role Phone Vanessa Christian MAURI Primary Care Provider [phone] Encounter Details Date Type Department Care Team (Latest Contact Info) Description 05/27/2024 Travel Social History Tobacco Use Types Packs/Day Years Used Date Smoking Tobacco: Former Cigarettes Smokeless Tobacco: Never Comments:Quit 15 + years ago Alcohol Use Standard Drinks/Week Comments Yes 0 (1 standard drink = 0.6 oz pur e alcohol) rare [facility] Utilities Answer Date Recorded In the [...] PM EST Office Visit Cardiology at [address] [address] Neftali Ernandez MD [facility] [place] [address] documented as of this encounter Visit Diagnoses Not on filedocumented in this encounter Care Teams Car Rental Agency Manager Relationship Specialty Start Date End Date Vanessa Christian APRN [address] [place] [address] PCP - General Family Medicine 05/27/24 documented as of this encounter
--- OUTSIDE RECORDS SUMMARY | 2024-06-01 08:05 | XMS_ITS | Encounter Summary ---
Author Organization [facility] Address [facility] [place] [address] Care Team Providers Care Medical Intern Name Role Phone Gino Vanessa Lane DOTSON Primary Care Provider [phone] Encounter Details Date Type Department Care Team (Late st Contact Info) Description 02/24/2024 Orders Only Cardiac Surgery [facility] [place] [phone] Trudi Lester APRN [facility] [place] [address] Social History Tobacco Use Types Packs/Day Years Used Date Smoking Tobacco: Former Cigarettes Smokeless Tobacco: Never Comments:Quit 15 + years ago Alcohol Use Standard Drinks/Week Comments Yes 0 (1 standard drink = 0.6 oz pur e alcohol) rare [facility] Utilities Answer Date Recorded In the past 12 months has e [employer], gas, oil, or water [employer] threatened to shut off services in your [...] 3:00 PM EST Office Visit Cardiology at [address] [place] [address] Neftali Ernandez MD [facility] [place] [address] documented as of this encounter Visit Diagnoses Not on filedocumented in this encounter Care Teams Medical Intern Relationship Specialty Start Date End Date Vanessa Christian APRN PCP - General Family Medicine 10/21/23 05/26/24 documented as of this encounter
--- OUTSIDE RECORDS SUMMARY | 2024-06-01 08:05 | XMS_ITS | Clinical Summary ---
Author Organization [facility] Address [address] [place] [address] Care Team Providers Care Shopper Name Role Phone Vanessa Christian NP Primary Care Provider [phone] Social History Tobacco Use Types Packs/Day Years [...] COVID-19 Vaccine (2022-24 season) 2023 Care Teams Shopper Relationship Specialty Start Date End Date Vanessa Christian NP [address] [place] [phone] PCP - General Family Medicine - Primary Care 10/07/23
--- OUTSIDE RECORDS SUMMARY | 2024-06-01 08:05 | XMS_ITS | Clinical Summary ---
Author Organization [facility] Address [facility] [place] [address] Care Team Providers Care Shop Hand Name Role Phone Vanessa Christian Lane DOTSON Primary Care Provider [phone] Allergies No known active allergies Medications Medication [...] of face 09/26/2023 05/27/2024 Overview (09/26/2023): Right caodaism Chest pressure 08/14/2023 10/21/2023 SILVA (dyspnea on exertion) 08/14/2023 HLD (hyperlipidemia) 08/14/2023 024 Encounters Date Type Department Care Team Description 05/27/2024 11:00 AM EDT Office Visit Cardiology at [address] [place] [address] Neftali Ernandez MD ASCVD (arteriosclerotic cardiovascular disease); Nonrheumatic aortic valve stenosis 05/27/2024 Travel 05/20/2024 Travel 03/12/2024 2:40 PM EDT Office Visit Cardiac Surgery at [facility] [place] [address] Zak Farmer MD Coronary artery disease, unspecified vessel or lesion type, unspecified whether angina present, unspecified whether [place] or transplanted heart 03/12/2024 1:30 PM EDT - 03/12/2024 11:59 PM EDT Hospital Encounter XRay at [address] [place] [address] Coronary artery disease, unspecified vessel or lesion type, unspecified whether angina present, unspecified whether [place] or transplanted heart Discharge Disposition: Home 03/12/2024 Travel from Last 3 Months Social History Tobacco Use Types Packs/Day Years Used Date Smoking Tobacco: Former Cigarettes Smokeless Tobacco: Never Comments:Quit 15 + years ago Alcohol Use Standard Drinks/Week Comments Yes 0 (1 standard drink = 0.6 oz pur e alcohol) rare [facility] Utilities Answer Date Recorded In the past 12 months has th e [employer], gas, oil, or water [employer] threatened to shut off services in your [...] place to sleep or slept in a alf (including now)? No 02/18/2024 DH IPV Inpatient [...] PM EST Office Visit Cardiology at [address] [place] [address] Neftali Ernandez MD [facility] [place] [address] Health Maintenance Due Date Last Done Comments [...] series) 06/07/2024 Medical Devices Implanted Type Area Political Science Research Assistant Device Identifier Shelf Expiration Date Model / Serial / Lot Cable,Cut,Edg ,Blnt,Ss,3tpr ([id number]) - [id number] Implanted:Qty : 1 on 02/17/2024 by Zak Farmer MD at [facility] IMPLANTS Midline: Chest [employer] - [id number] 09/02/2028 [id number] / / [id number] Valve Coronary Aortic 23mm Tissue Trnscath Biopros Inspiris ([id number]) (Autoreq) - [id number] Implanted:Qty : 1 on 02/17/2024 by Zak Farmer MD at [facility] IMPLANTS Heart [employer] - TSAI LI 09/15/2027 [id number] / [id number] / Procedures Procedure Name Priority Date/Time Associated Diagnosis Comments EKG 12-LEAD Routine 03/12/2024 2:35 PM EDT Coronary artery disease, unspecified vessel or lesion type, unspecified whether angina present, unspecified whether [place] or transplanted heart XR CHEST PA AND LATERAL Routine 03/12/2024 1:42 PM EDT Coronary artery disease, unspecified vessel or lesion type, unspecified whether angina present, unspecified whether [place] or transplanted heart from Last 3 Months Results * EKG 12 Lead (03/12/2024 2:35 PM EDT) Ventricular rate 59 BPM MUSE SYSTEM Atrial Rate 59 BPM MUSE SYSTEM P-R Interval 190 ms MUSE SYSTEM QRS Duration 92 ms MUSE SYSTEM Q-T Interval 406 ms MUSE SYSTEM QTC Calculated (Bezet) 401 ms MUSE SYSTEM Calculated P [place] -12 degrees MUSE SYSTEM Calculated R [place] 24 degrees MUSE SYSTEM Calculated T [place] 74 degrees MUSE SYSTEM INTERPRETATION Sinus bradycardia T wave abnormality, consider anterior ischemia Abnormal ECG When compared with ECG of 17-FEB-2024 13:24, [place] interval has decreased T wave inversion now evident in Anterior leads Confirmed by Paul Guzman ([id number]) on 03/15/2024 8:36:23 AM MUSE SYSTEM 03/12/2024 2:35 PM EDT 03/15/2024 8:36 AM EDT Zak Farmer MD ECG ORDERABLES MUSE SYSTEM * XR Chest PA & Lateral (Generic) (03/12/2024 1:42 PM EDT) WORKSTATION ID [id number] RAD Anatomical Region Laterality Modality Chest N/A [...] questions please contact the health career development associate that requested your imaging first. ? Narrative 03/13/2024 8:28 AM EDT EXAMINATION: XR CHEST PA AND LATERAL (GENERIC) CLINICAL HISTORY: s/p cabg eval effusions I25.10, Atherosclerotic heart disease of [place] coronary artery without angina pectoris TECHNIQUE: PA [...] eval effusions I25.10, Atherosclerotic heart disease of [place] coronary artery withoutangina pectoris TECHNIQUE: PA and [...] have questions please contactthe health career development associate that requested your imaging first. Zak Farmer MD IMG DX ORDERABLES from [...] Status decision made by: Patient Care Teams Shop Hand Relationship Specialty Start Date End Date Vanessa Christian, MAURI [address] [place] [address] PCP - General Family Medicine 05/27/24
--- OUTSIDE RECORDS SUMMARY | 2024-06-01 08:05 | XMS_ITS | Encounter Summary ---
Author Organization [facility] Address [address] [place] [address] Care Team Providers Care Equipment Coordinator Name Role Phone Vanessa Christian Lane MONCADA Primary Care Provider [phone] Encounter Details Date Type Department Care Team (Late st Contact Info) Description 10/24/2023 Lab Requisition [facility] Pathology & Laboratory Medicine - [address] [address] Oscar Nichole MD [address] [place] [address] [phone] Factitial dermatitis Social History Tobacco Use Types [...] if applicable. 10/28/2023 11:24 EST [facility] Final Diagnosis A. SKIN OF MU-ISM, LEFT, SHAVE BIOPSY: - Seborrheic keratosis, pigmented. 10/28/2023 11:24 EST [facility] Attestation By the signature below, the attending physician certifies that they have 1) personally conducted a gross and/or microscopic examination of the described specimen(s), and/or personally interpreted the results of laboratory testing of the described specimen(s), and 2) personally rendered or confirmed the above diagnosis. 10/28/2023 11:24 [facility] at [address] Microscopic Description The stratum corneum is thickened by compact and basketweave orthokeratosis with formation of horn pseudocysts. The epidermis is acanthotic with formation of broad and anastomosing trabeculae. The trabeculae are composed of basaloid keratinocytes with round uniform nuclei. The keratinocytes have a variable amount of melanin pigment. 10/28/2023 11:24 [facility] Clinical History Pigmented 2 cm patch; clinical diagnosis code: L98.1 10/28/2023 11:24 [facility] Gross Description A. Received in formalin labelled with proper patient identification (initials P, A) and left jainism is a shave biopsy of an irregular [...] Nora Anderson 10/25/2023 8:47 10/28/2023 11:24 [facility] Performing Lab [facility] 10/28/2023 11:24 [facility] Scanned Images 10/28/2023 11:24 [facility] Tissue SPECIMEN FROM SKIN / Unknown 10/24/2023 14:30 EST 10/24/2023 22:04 EST Oscar Nichole MD PATHOLOGY ORDERABLES [facility] [address] [place] [address] documented in this encounter Visit Diagnoses Diagnosis Factitial dermatitis Dermatitis factitia (artefacta) documented in this encounter Care Teams Equipment Coordinator Relationship Specialty Start Date End Date Vanessa Christian NP [address] [place] [address] PCP - General Family Medicine - Primary Care 10/07/23 documented as of this encounter
--- OUTSIDE RECORDS SUMMARY | 2024-06-01 08:05 | XMS_ITS | Encounter Summary ---
Author Organization [facility] Address [facility] [place] [address] Care Team Providers Care Java J2Ee Software Engineer Name Role Phone Vanessa Christian MAURI Primary Care Provider [phone] Encounter Details Date Type Department Care Team (Latest Contact Info) Description 03/12/2024 1:30 PM EDT - 03/12/2024 11:59 PM EDT Hospital Encounter XRay at [address] [place] [address] Coronary artery disease, unspecified vessel or lesion type, unspecified whether angina present, unspecified whether [place] or transplanted heart Discharge Disposition: Home Social History Tobacco Use Types Packs/Day Years Used Date Smoking Tobacco: Former Cigarettes Smokeless Tobacco: Never Comments:Quit 15 + years ago Alcohol Use Standard Drinks/Week Comments Yes 0 (1 standard drink = 0.6 oz pur e alcohol) rare [facility] Utilities Answer Date Recorded In the past 12 months has e [employer], gas, oil, or water [employer] threatened to shut off services in your [...] PM EST Office Visit Cardiology at [address] [place] [address] Neftali Ernandez MD [facility] [address] documented as of this encounter Procedures Procedure Name Priority Date/Time Associated Diagnosis Comments XR CHEST PA AND LATERAL Routine 03/12/2024 1:42 PM EDT Coronary artery disease, unspecified vessel or lesion type, unspecified whether angina present, unspecified whether [place] or transplanted heart documented in this encounter Results * XR Chest PA & Lateral (Generic) (03/12/2024 1:42 PM EDT) WORKSTATION ID [id number] RAD Anatomical Region Laterality Modality Chest N/A [...] questions please contact the health director of career resources that requested your imaging first. ? Electronically signed by: Augie Sanchez MD, [facility] ([phone]), at 03/13/2024 8:28 AM Narrative 03/13/2024 8:28 AM EDT EXAMINATION: XR CHEST PA AND LATERAL (GENERIC) CLINICAL HISTORY: s/p cabg eval effusions I25.10, Atherosclerotic heart disease of [place] coronary artery without angina pectoris TECHNIQUE: PA [...] eval effusions I25.10, Atherosclerotic heart disease of [place] coronary artery withoutangina pectoris TECHNIQUE: PA and [...] have questions please contactthe health director of career resources that requested your imaging first. Electronically signed by: Augie Sanchez MD, [facility]([phone]), at 03/13/2024 8:28 AM Zak Farmer MD IMG DX ORDERABLES documented in this encounter Visit Diagnoses Diagnosis Coronary artery disease, unspecified vessel or lesion type, unspecified whether angina present, unspecified whether [place] or transplanted heart documented in this encounter Care Teams Java J2Ee Software Engineer Relationship Specialty Start Date End Date Vanessa Christian, MAURI PCP - General Family Medicine 10/21/23 05/26/24 documented as of this encounter
--- OUTSIDE RECORDS SUMMARY | 2024-06-01 08:05 | XMS_ITS | Encounter Summary ---
Author Organization [facility] Address [facility] [place] [address] Care Team Providers Care Gis Manager Name Role Phone Vanessa Christian MAURI Primary Care Provider [phone] Encounter Details Date Type Department Care Team (Latest Contact Info) Description 05/20/2024 Travel Social History Tobacco Use Types Packs/Day Years Used Date Smoking Tobacco: Former Cigarettes Smokeless Tobacco: Never Comments:Quit 15 + years ago Alcohol Use Standard Drinks/Week Comments Yes 0 (1 standard drink = 0.6 oz pur e alcohol) rare [facility] Utilities Answer Date Recorded In the [...] 3:00 PM EST Office Visit Cardiology at [address] [phone] Neftali Ernandez MD [facility] [place] [place] [address] documented as of this encounter Visit Diagnoses Not on filedocumented in this encounter Care Teams Gis Manager Relationship Specialty Start Date End Date Vanessa Christian APRN PCP - General Family Medicine 10/21/23 05/26/24 documented as of this encounter
--- OUTSIDE RECORDS SUMMARY | 2024-06-01 08:05 | XMS_ITS | Encounter Summary ---
Author Organization [facility] Address [facility] [place] [address] Care Team Providers Care Landscape And Yardwork Laborer Name Role Phone Vanessa Christian MAURI Primary Care Provider [phone] Encounter Details Date Type Department Care Team (Latest Contact Info) Description 03/12/2024 Travel Social History Tobacco Use Types Packs/Day Years Used Date Smoking Tobacco: Former Cigarettes Smokeless Tobacco: Never Comments:Quit 15 + years ago Alcohol Use Standard Drinks/Week Comments Yes 0 (1 standard drink = 0.6 oz pur e alcohol) rare [facility] Utilities Answer Date Recorded In [...] 3:00 PM EST Office Visit Cardiology at [address] [phone] Neftali Ernandez MD [facility] [place] [address] documented as of this encounter Visit Diagnoses Not on filedocumented in this encounter Care Teams Landscape And Yardwork Laborer Relationship Specialty Start Date End Date Vanessa Christian APRN PCP - General Family Medicine 10/21/23 05/26/24 documented as of this encounter
--- OUTSIDE RECORDS SUMMARY | 2024-06-01 08:05 | XMS_ITS | Encounter Summary ---
Author Organization [facility] Address [facility] [place] [address] Care Team Providers Care News Reel Cameraman Name Role Phone Vanessa Christian Lane DOTSON Primary Care Provider [phone] Reason for Visit * Reason Comments Coronary Artery Disease Aortic Stenosis Encounter Details Date Type Department Care Team (Latest Contact Info) Description 05/27/2024 11:00 AM EDT Office Visit Cardiology at [address] [place] [phone] Neftali Ernandez MD [facility] [place] [address] ASCVD (arteriosclerotic cardiovascular disease); Nonrheumatic aortic valve stenosis Social History Tobacco Use Types Packs/Day Years Used Date Smoking Tobacco: Former Cigarettes Smokeless Tobacco: Never Comments:Quit 15 + years ago Alcohol Use Standard Drinks/Week Comments Yes 0 (1 standard drink = 0.6 oz pur e alcohol) rare [facility] Utilities Answer Date Recorded In the past 12 months has e [employer], gas, oil, or water [employer] threatened to shut off services in your [...] PM EST Office Visit Cardiology at [address] [phone] Neftali Ernandez MD [facility] [place] [address] documented as of this encounter Visit Diagnoses Diagnosis ASCVD (arteriosclerotic cardiovascular disease) Unspecified cardiovascular disease Nonrheumatic aortic valve stenosis Aortic valve disorders documented in this encounter Care Teams News Reel Cameraman Relationship Specialty Start Date End Date Vanessa Christian APRN [address] [place] [address] PCP - General Family Medicine 05/27/24 documented as of this encounter
--- OUTSIDE RECORDS SUMMARY | 2024-06-01 08:06 | XMS_ITS | Encounter Summary ---
Author Organization [facility] [place] [address] Care Team Providers Care Solar Project Engineer Name Role Phone Vanessa Christian MAURI Primary Care Provider [phone] Reason for Visit * Auth/Cert (Routine) Specialty [...] ARTERIAL GRAFT (WRVU 7.93) Zak Farmer MD [facility] [place] [address] [facility] Referral ID Status Reason Start Date Expiration Date Visits Re quested Visits Authorized [id number] 1 1 Encounter Details Date Type Department Care Team (Late st Contact Info) Description 02/17/2024 7:35 AM EDT Anesthesia Event Main Operating Room [facility], [address] [place] [phone] Roman York MD [facility] [place] [address] Anesthesia Record Procedure Summary Procedure Name Responsible [...] by Sadiq Woo RN PIV 02/17/24; 0715; yifx-ylg-macjys catheter system; 18 gauge; cephalic vein (lateral [...] Bundle Performed; 02/17/24; 2100 02/17/24 0808 by Rmoan [place] MD 02/17/242099 by Amber Garcia RN documented in this encounter Social History Tobacco Use Types Packs/Day Years Used Date Smoking Tobacco: Former Cigarettes Smokeless Tobacco: Never Comments:Quit 15 + years ago Alcohol Use Standard Drinks/Week Comments Yes 0 (1 standard drink = 0.6 oz pur e alcohol) rare [facility] Utilities Answer Date Recorded In the past 12 months has th e electric, gas, oil, or water [employer] threatened to shut off services in your [...] Procedure Summary Date: 02/17/24 Room / Location: [facility] OR [address] [place] [address] MAIN OR Anesthesia Start: 734 Anesthesia Stop: [...] shown include unfiled device data. Patient Location: [facility] Level of Consciousness: Sedated (Pharmacologic/Intentional) Pain Management: [...] 08/14/2023 ??? Nevus of face 09/26/2023 Right anabaptist No past surgical history on file. Social [...] 3:00 PM EST Office Visit Cardiology at [address] [place] [address] Neftali Ernandez MD [facility] [place] [address] documented as of this encounter [...] mg documented in this encounter Care Teams Solar Project Engineer Relationship Specialty Start Date End Date Vanessa Christian APRN PCP - General Family Medicine 10/21/23 05/26/24 documented as of this encounter
--- OUTSIDE RECORDS SUMMARY | 2024-06-01 08:06 | XMS_ITS | Encounter Summary ---
Author Organization [facility] Address [facility] [place] [address] Care Team Providers Care Telephone Installer Name Role Phone Vanessa Christian APRN Primary Care Provider [phone] Encounter Details Date Type Department Care Team [...] 3:00 PM EST Office Visit Cardiology at [address] [place] [address] Neftali Ernandez MD [facility] [place] [address] documented as of this encounter Visit Diagnoses Not on filedocumented in this encounter Care Teams Telephone Installer Relationship Specialty Start Date End Date Vanessa Christian APRN PCP - General Family Medicine 10/21/23 05/26/24 documented as of this encounter
--- OUTSIDE RECORDS SUMMARY | 2024-06-01 08:06 | XMS_ITS | Encounter Summary ---
Author Organization [facility] [place] [address] Care Team Providers Care Java Web Application Developer Name Role Phone Vanessa Christian MAURI Primary Care Provider [phone] Reason for Visit * Auth/Cert (Routine) Specialty [...] W RHC (WRVU 5.9) Rima Dickinson MD [facility] [place] [address] [facility] Referral ID Status Reason Start Date Expiration Date Visits Re quested Visits Authorized [id number] 1 1 Encounter Details Date Type Department Care Team (Late st Contact Info) Description 02/03/2024 10:00 AM EDT - 02/03/2024 11:00 AM EDT Surgery [place] [address] Saira Lua MD [facility] [place] [address] CARDIAC CATHETERIZATION Social History Tobacco Use Types [...] lbs Follow-up Visits Follow up with your dinner cook in 2-4 weeks Access Site 'Black and Blue' and tenderness is expected during the first week Call if you noted a mass (lump) greater than the size of a ellis Call Office with any Questions and if you have any of the following Clarence Lane M.D Interventional Supervisor Commissary Production Lime Kiln Operator #: [phone] * Attachments The following attachments cannot be sent through Care Everywhere. * CAD (Coronary Artery Disease): General Info (Lao) * Coronary Angiogram: Post-op (Lao) documented in this encounter Medications at Time [...] Lane MD - 02/03/2024 11:48 AM EDT [facility] Interventional Cardiology Adult Pre-Procedure H&P Update: Cardiac Catheterization Karlos Anthony [id number] 1960 Chief Complaint: Aortic stenosis HPI: Mr. [...] is inthe chart Clarence Lane MD Interventional Supervisor Commissary Production 02/03/24 11:48 AM documented in this encounter Miscellaneous Notes * Brief Op Note - Clarence Lane MD - 02/03/2024 12:51 PM EDT Preliminary Cardiac Catheterization Procedure Note: Patient Name: Karlos Anthony : [id number] MR#: [id number] Case Date: 02/03/2024 Lime Kiln Operator: Surgeon(s) and Role: * Saira Lua [...] 3:00 PM EST Office Visit Cardiology at [address] [address] Neftali Ernandez MD [facility] [place] [address] Scheduled Orders Name Type Priority Associated Diagnoses [...] Modality Other Narrative 02/12/2024 3:47 PM EDT ?[facility] ? Cardiac Catheterization/Intervention Report ? Patient Name: Patenaude, Karlos ? Procedure Date: 02/03/2024 ? A #: [id number] ? Primary Physician: Saira Lua ? Case #: [id number] ? File Name: [id number] ? Catheterization Order Number: [id number] ? [facility] ? Final Report [place], [place] ? Patient Name: ? Karlos Patenaude ? ID#: ?[id number] ? : ?1960 ? Procedure Date: ? [...] Procedure Note Saira Lua MD - 02/12/2024 [facility] Cardiac Catheterization/Intervention Report Patient Name: Karlos Anthony Procedure Date: 02/03/2024 A #: [id number] Primary Physician: Saira Lua Case #: [id number] File Name: [id number] Catheterization Order Number: [id number] [facility] FinalReport [place], [place] Patient Name: Karlos Anthony ID#:[id number] :1960 Procedure Date: February 03, 2024 Case [...] was designated as ASA Class III. The [facility] clinical frailty scale is 3: Managing [...] (Bezet) 372 ms MUSE SYSTEM Calculated P [place] 59 degrees MUSE SYSTEM Calculated R [place] 34 degrees MUSE SYSTEM Calculated T [place] 63 degrees MUSE SYSTEM INTERPRETATION Sinus bradycardia [...] MD) documented in this encounter Care Teams Java Web Application Developer Relationship Specialty Start Date End Date Vanessa Christian APRN PCP - General Family Medicine 10/21/23 05/26/24 documented as of this encounter
--- OUTSIDE RECORDS SUMMARY | 2024-06-01 08:06 | XMS_ITS | Encounter Summary ---
Author Organization [facility] Address [facility] [place] [address] Care Team Providers Care Wool Hat Flanger Name Role Phone Vanessa Christian MAURI Primary Care Provider [phone] Encounter Details Date Type Department Care Team (Late st Contact Info) Description 02/14/2024 [place] [phone] Zak Farmer MD [facility] [place] [address] Coronary artery disease, unspecified vessel or lesion type, unspecified whether angina present, unspecified whether ely shoshone or transplanted heart (Primary Dx) Social History [...] PM EST Office Visit Cardiology at [address] [place] [phone] Neftali Ernandez MD [facility] [place]OLOG[place], [place] [address] documented as of this encounter Results * EKG 12 Lead (03/12/2024 2:35 PM EDT) Ventricular rate 59 BPM MUSE SYSTEM Atrial Rate 59 BPM MUSE SYSTEM P-R Interval 190 ms MUSE SYSTEM QRS Duration 92 ms MUSE SYSTEM Q-T Interval 406 ms MUSE SYSTEM QTC Calculated (Bezet) 401 ms MUSE SYSTEM Calculated P [place] -12 degrees MUSE SYSTEM Calculated R [place] 24 degrees MUSE SYSTEM Calculated T [place] 74 degrees MUSE SYSTEM INTERPRETATION Sinus bradycardia T wave abnormality, consider anterior ischemia Abnormal ECG When compared with ECG of 17-FEB-2024 13:24, [place] interval has decreased T wave inversion now evident in Anterior leads Confirmed by Paul Guzman ([id number]) on 03/15/2024 8:36:23 AM MUSE SYSTEM 03/12/2024 2:35 PM EDT 03/15/2024 8:36 AM EDT Zak Farmer MD ECG ORDERABLES MUSE SYSTEM * XR Chest PA & Lateral (Generic) (03/12/2024 1:42 PM EDT) WORKSTATION ID [id number] RAD Anatomical Region Laterality Modality Chest N/A [...] who have questions please contact the health foster care worker that requested your imaging first. ? 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 Zak Farmer MD IMG DX ORDERABLES documented in this encounter Visit Diagnoses Diagnosis Coronary artery disease, unspecified vessel or lesion type, unspecified whether angina present, unspecified whether ely shoshone or transplanted heart- Primary Coronary artery disease, unspecified vessel or lesion type, unspecified whether angina present, unspecified whether ely shoshone or transplanted heart documented in this encounter Care Teams Wool Hat Flanger Relationship Specialty Start Date End Date Vanessa Christian APRN PCP - General Family Medicine 10/21/23 05/26/24 documented as of this encounter
--- OUTSIDE RECORDS SUMMARY | 2024-06-01 08:06 | XMS_ITS | Encounter Summary ---
[place] [address] Care Team Providers Care Filters Assembler Name Role Phone Aparna Jordan MAURI Primary Care Provider [phone] Reason for Referral * Diagnostic Test (Routine) - New Request Specialty Diagnoses / Procedures Referred By Contac t Referred To Contact Cardiology Diagnoses S/P AVR Procedures Echocardiogram Transthoracic Neftali Menon PA [facility] [place] [address] [facility] [place] [address] Referral ID Status Reason Start Date Expiration Date Visits Requested Visits Authorized [id number] New Request Specialty Service Requested 02/24/2024 02/23/2025 1 1 * Consultation (Routine) - Authorized Specialty Diagnoses / Procedures Referred By Contac t Referred To Contact Cardiology Diagnoses S/P AVR Hayder Graham MD [facility] [place] [address] Cardiac Rehab, [facility] [address] [place] [address] [place] [address] Referral ID Status Reason Start Date Expiration Date Visits Requested Visits Authorized [id number] Authorized Consult, Test & Treat 02/24/2024 08/22/2024 36 36 * Home Health Care (Routine) - Authorized Specialty Diagnoses / Procedures Referred By Sixto mendoza Referred To Contact Diagnoses S/P AVR Hayder Graham MD [facility] [place] [address] Referral ID Status Reason Start Date Expiration Date Visits Requested Visits Authorized [id number] Authorized Consult, Test & Treat 02/24/2024 08/22/2024 [...] GRAFT (WRVU 7.93) Hayder Graham MD [facility] [place] [address] [facility] Referral ID Status Reason Start Date Expiration Date Visits Re quested Visits Authorized [id number] 1 1 Encounter Details Date Type Department Care Team (Latest Contact Info) Description 02/17/2024 5:43 AM EDT - 02/24/2024 11:23 AM EDT Hospital Encounter Heart and Vascular Unit Level 4 [place] [address] Hayder Graham MD [facility] [place] [address] S/P AVR (Primary Dx); Aortic valve stenosis, etiology of cardiac valve disease unspecified Discharge Disposition: Home with VNA Social History Tobacco Use Types Packs/Day Years Used Date Smoking Tobacco: Former Cigarettes Smokeless Tobacco: Never Comments:Quit 15 + years ago Alcohol Use Standard Drinks/Week Comments Yes 0 (1 standard drink = 0.6 oz pur e alcohol) rare [facility] Utilities Answer Date Recorded In the [...] Patient Age: 63 y.o. Birthdate: 1960 Language: Indonesian Race: White Ethnicity: Not nor Admit Date: 02/17/2024 Discharge Date: 02/24/24 Attending Physician: Hayder Graham MD Follow-up Recommendations for Providers: Please continue routine management of cardiovascular risk factors including blood pressure, lipids,glucose, etc. Please note any changes to medications. Patient to follow up with PCP, Aparna Jordan APRN, in 1-2 weeks. Patient to follow up with Party Demonstrator, Neftali Ernandez MD , in 2 weeks. Patient to follow up with Cardiac Surgeon, Dr. Hayder Graham, with a chest x-ray, EKG, and Echo. 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 Right sikh Past Surgical History: Procedure Laterality Date PRO CABG, ARTERIAL, SINGLE N/A 02/17/2024 @CABG, USING ARTERIAL GRAFT;SINGLE ARTERIAL GRAFT (WRVU 33.75) performed by Hayder Graham MD at [facility] MAIN OR PRO CABG, ARTERY-VEIN, TWO N/A 02/17/2024 @CABG, TWO VENOUS GRAFTS & ARTERIAL GRAFT (WRVU 7.93) performed by Hayder Graham MD at [facility] MAIN OR PRO ENDOSCOPY W/VIDEO-ASST VEIN HARVEST, CABG Left 02/17/2024 ENDOSCOPIC HARVEST VEIN(S) FOR CABG (WRVU 0.31) performed by Hayder Graham MD at [facility] MAIN OR PRO REPLACEMENT PROSTHETIC AORTIC VALVE OPEN W CARDIOPULMONARY BYPASS HOMOGRF/STENT N/A 02/17/2024 @REPLACE AORTIC VALVE, OPEN, W\CPB, W\PROSTHETIC VALVE (WRVU 41.32) performed by Hayder Graham MD at [facility] MAIN OR Prior To Admission [...] insufficiency. He has glaucoma. He used to MENABANQER until about 15 years ago. He has [...] Hayder Graham and/or the Cardiac Surgery Physician Conference Planner Team may be reached at . Antibiotic [...] Please refer to the card with the [employer] [employer] Guidelines for more information. You [...] Dr. Hayder Graham. You may use a [place] Track or treadmill but avoid any pulling [...] friends, go to a movie, go to sikh, etc. Heavy activities: No hunting, skiing, jogging, [...] should resume a low fat, low cholesterol, [employer] Heart [employer] Diet. Driving: No driving until [...] while being managed by your PCP and/or Party Demonstrator. For future medication refills, please refer to your PCP and/or Party Demonstrator after your discharge from our service. Thank you REMOVE CHEST TUBE SUTURES ON OR AFTER 03/02/24 Home oxygen therapy: N/A Follow up appointments: You should follow up with your PCP, Aparna Jordan APRN, in 1-2 weeks. Our office will schedule an appointment with your Party Demonstrator, Neftali Ernandez MD , in 2 weeks. You have an appointment with your Cardiac Surgeon, Dr. Hayder Graham, 4 weeks with a chest x-ray, EKG, and Echo before your appointment. Cardiac Rehabilitation: Karlos Garcia was seen regarding participation in the outpatient Phase 2Cardiac Rehabilitation at [facility]. The patient agrees to a referral to this program. The referral will be sent at discharge and the patient should be contacted by the Program within 1- 2 weeks from discharge. Future Appointments and Orders Future Orders Complete By Expires Echocardiogram Transthoracic [89815 CPT(R)] 03/26/2024 09/25/2024 Process Instructions: Scheduling Instructions: Questions: Where will study be performed?: [facility] Does the patient have Congenital Heart Disease?: Does patient require sedation?: Sedation rationale: XR Chest PA & Lateral (Generic) [87911 37158 Custom] 03/26/2024 09/25/2024 Process Instructions: Scheduling Instructions: Questions: Portable exam?: Reason for exam and clinical history: s/p avr/cabg Clinical information / jerome questions for radiologist: Stat read required?: Date of injury if applicable: Requested Time: Where will study be performed?: [facility] Radiology Referral to Cardiac Rehab [WGU469 Custom] As directed Process Instructions: If no progress note charted, please enter Clinical details in comments. Scheduling Instructions: Questions: My question or request is: s/p AVR/CABG. Cardiac rehab at [facility]. Referral to Home Health [REF34 Custom] As directed Process Instructions: If no progress note charted, please enter Clinical details in comments. Scheduling Instructions: Comments: Please evaluate Karlos Garcia for admission to Home Health. [address] Phone Number: Date of : 1960 Inpatient DOCUMENTATION FOR VNA SERVICES (INCLUDING THOSE PATIENTS WITH MEDICARE COVERAGE REQUIRING HOME VNA SERVICES AND/OR HOSPICE SERVICES) PATIENT'S LOCATION: Karlos Garcia [address] [employer] [phone] Collections Curator's Name: self/family In discussion with the attending physician, it is certified that this patient is under their care and that they, or a Nurse Practitioner, or Physician Conference Planner who is working directly with them, hada [...] for services as follows: HOME HEALTH AGENCY: [facility] [address] [place] [address] RN orders: Cardiopulmonary assessment, incisional assessment, assess [...] issues please call the Cardiology Office at [phone] FOR MEDICARE ONLY: (please delete this section [...] APRN [address] / [place] [address] . All VNA agencies which cover the area of patient's residence have been reviewed, either verbally or in writing, and patient/family have chosen the home health care agency noted. Questions: Disciplines Requested: Nursing Physical Therapy Arrangements for VNA/home care: As above. Signed: NEFTALI MENON PA-C [facility] of [facility]iac [facility] [place] [address] FAX [phone] Date: 02/24/2024 CC: Aparna Jordan, MAURI Jordan, Aparna Sherman APRN [address] [place] [address] documented in this encounter Discharge Instructions * [...] Hayder Graham and/or the Cardiac Surgery Physician Conference Planner Team may be reached at . Antibiotic [...] Please refer to the card with the [employer] Heart Association Guidelines for more information. You [...] Dr. Hayder Graham. You may use a [place] Track or treadmill but avoid any pulling [...] friends, go to a movie, go to sikh, etc. Heavy activities: No hunting, skiing, jogging, [...] should resume a low fat, low cholesterol, [employer] Heart Association Diet. Driving: No driving until [...] while being managed by your PCP and/or Party Demonstrator. For future medication refills, please refer to your PCP and/or Party Demonstrator after your discharge from our service. Thank you REMOVE CHEST TUBE SUTURES ON OR AFTER 03/02/24 Home oxygen therapy: N/A Follow up appointments: You should follow up with your PCP, Aparna Jordan APRN, in 1-2 weeks. Our office will schedule an appointment with your Party Demonstrator, Neftali Ernandez MD , in 2 weeks. You have an appointment with your Cardiac Surgeon, Dr. Hayder Graham, 4 weeks with a chest x-ray, EKG, and Echo before your appointment. Cardiac Rehabilitation: Karlos Garcia was seen regarding participation in the outpatient Phase 2Cardiac Rehabilitation at [facility]. The patient agrees to a referral [...] 0600 and on the weekends please page [phone]. * Eric Barahona PA - 02/23/2024 9:27 [...] 0600 and on the weekends please page [phone]. * Tiffanie Owens - 02/22/2024 2:48 PM [...] d/c for 10 days. 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 * Kelley Hinson, MEMORIAL MARKER DESIGNER - 02/21/2024 10:15 AM EDT Physical Therapy [...] d/c for 10 days. 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 * Kelley Hinson PTA - 02/20/2024 3:32 PM EDT 02/20/24 2053 Evaluation & Treatment Document Type contact Total Minutes, Physical Therapy 0 Comment, Session Not Performed Checked in w/ pt this PM for ongoing PT services, pt politely declined, stating he had been dealing w/ nausea all day, made plan to see him tomorrow morning, will f/u at that time Kelley Hinson PTA Pager: [phone] Physical Therapy Inpatient Rehab Department * Louisa [...] 0600 and on the weekends please page [phone]. * Maris Benavides, PT - 02/19/2024 11:22 [...] d/c for 10 days. 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 Precautions/Special Considerations: [...] outlined inthis evaluation. MARIS BENAVIDES, PT Pager: [phone] Physical Therapy Inpatient Rehabilitation Department Time IN / OUT: 5059-2225 Total Time: 38 (eval) minutes; * Antonio [...] 0600 and on the weekends please page [phone]. * Minnie Begum PA - 02/18/2024 8:25 [...] site CDI with SANJANA wrap Tubes/Lines/Drains: RIJ/PAC, Lizella, Jacky Ctx, L pleural CT, TPW, Delaney [...] 0600 and on the weekends please page [phone]. * Kim Ha RCP - 02/17/2024 2:25 [...] plan since last visit. Hayder Graham MD [phone] Source Note - Hayder Graham MD - [...] insufficiency. He has glaucoma. He used to MENABANQER until about 15 years ago. He has [...] given written informed consent. Hayder Graham MD [phone] * Hayder Graham MD - 02/17/2024 7:00 [...] given written informed consent. Hayder Graham MD [phone] documented in this encounter Miscellaneous Notes * [...] information for follow-up Home Health & Hospice, [address] [place] [address] Cardiac Rehab, [address] [address] Transportation: family or friend will provide Functional status prior to admission: Independent Home Environment: Others in the home: alone. Current Living Arrangements: home/apartment/condo. Accessibility Concerns:a few steps to enter 1 floor home. Current Functional Ability: Assistive Person and Equipment DME used at home: none DME Needed at Discharge: N/A Patient is insured through: Primary Insurance: [facility] Payor: [facility] / Plan: [facility] PPO / Product Type: *No Product type* [...] pain managed with scheduled Tylenol. Worked with [employer]. Ambulated in the roque multiple times during [...] anticipated Patient is insured through: Primary Insurance: [facility] Payor: [employer] / Plan: [facility] PPO / Product Type: *No Product type* / Secondary Insurance: N/A Last Physical Therapy Recommendation: home with home health (Str coming to stay for a week or two upon d/c) with to be determined (owns rolling walker, shower seat) Plan for discharge is: Home w/ Services Outpatient Agency/Support Group Needs: Homecare agency Home Health Services: Physical Therapy, Registered Nurse Agency Referrals: [facility]. [address] [place] [id number] Transportation: family or friend will provide Barriers to discharge: Discharge planning Plan going forward: Service Care Management will continue to follow and assist with discharge planning and coordination of care as indicated. Anticipated Date of Discharge: 02/22/2024 Rhett Bell RN RN/CM - Cellphone: [phone] Pager: [phone] Covering Service RN/CM * Plan of Care [...] Yang RN - 02/19/2024 10:44 AM EDT [facility] Karlos Garcia was seen today regarding participation in the outpatient Phase 2 Cardiac Rehabilitation at [facility]. The patient agrees to a referral [...] Hypertension 08/14/2023 Nevus of face 09/26/2023 Right sikh Hospitalizations Within the Past 30 Days: no previous admission in last 30 days Current Decision-Making Capacity: Self If AD's have not been completed the following surrogate would be surrogate decision maker per [place] surrogate decision making law. (Only good for 180 days) Any patient receiving care in [place] must abide by [place] law. The hierarchy for surrogate decision making [...] (i) The agent with financial power of residential monitor or a conservator appointed in accordance with [...] steady place to sleep or slept in [facility] (including now)?: No In the past 12 months has the Left of the [employer] gas, oil, or water [employer] threatened to shut off services in your [...] Home Address confirmed as: [address] [facility] [address] Physical address: [address] [facility], [address] Social & Family Supports: All names listed [...] Information: none noted Health/Prescription Coverage: Primary Insurance: [facility] Payor: [facility] / Plan: [facility] PPO / Product Type: *No Product type* / Secondary Insurance: N/A ; Prescription Coverage: Yes Preferred Pharmacy: [facility] #[id number] AT [address] [address] Status: Patient is a : No Primary Care Provider confirmed: Aparna Jordan, GRILL COOK [phone] Patient/Caregiver Goals of Treatment: dc to home Potential Needs for Transition of Care: home health care Agency Referrals: I have met with the patient to: discuss discharge planning needs. provide the [facility], Office of Care Management letter from the Geriatric Nursing Assistant pertaining to rehab referrals. provide a letter describing our affiliations within the [facility] and educate about their right to choose where referrals are sent. provide a list of Home Health Agencies / Durable Medical Equipment vendors which serve their preferred geographic area. provided patient with [facility] Star Quality Rating handout. They have requested referrals to: [facility] [address] [place] [address] Note routed to a Purchase Order Checker who will communicate referrals to facilities and [...] Reina Greene RN CM, BSN, CMGT- Ext [phone] * Plan of Care - Binta Trinidad [...] Operative Note Patient Name: Karlos Garcia : [id number] MR#: [id number] Case Date: 02/17/2024 Surgeon: Surgeon(s) and Role: * Hayder Graham MD - Primary * Neftali Menon PA - Physician Conference Planner Preoperative diagnosis: CAD Postoperative diagnosis: CAD, intraoperative [...] 23 mm Inspiris Bioprosthesis Anesthesia: General / Jyalen Findings: CAD, intraoperative EMMA confirmed the presence [...] mL Drains: Mediastinal and Left pleural Disposition: [facility] Condition: doing well without problems Attestation: Case Date: 02/17/2024 I performed this procedure without the involvement of a resident. HAYDER GRAHAM MD 02/17/2024 * Op Note - Hayder Graham MD - 02/17/2024 8:20 AM EDT [facility] Operative Note Patient Name: Karlos Garcia : [id number] MR#: [id number] Case Date: 02/17/2024 Surgeon: Surgeons and Role: * Hayder Graham MD - Primary * Neftali Menon PA - Physician Conference Planner Preoperative diagnosis: CAD Postoperative diagnosis: CAD, intraoperative [...] mL Drains: Mediastinal and Left pleural Disposition: [facility] Procedure Description: The patient was [...] 3:00 PM EST Office Visit Cardiology at [address] [place] [address] Neftali Ernandez MD [facility] [place] [address] Scheduled Orders Name Type Priority Associated Diagnoses [...] Aortic Valve Open W Cardiopulmonary Bypass Homogrf/Stent (84934) Yes 02/17/2024 7:28 AM EDT CAD Cabg, Artery-Vein, Two (88575) Yes 02/17/2024 7:28 AM EDT CAD Cabg, Arterial, Single (05809) Yes 02/17/2024 7:28 AM EDT CAD Endoscopy W/Video-Asst Vein [place], Cabg (14372) Yes 02/17/2024 7:28 AM EDT CAD POCT [...] CHEMISTRY ORDERABLE S [facility] [place] [address] * (ABNORMAL) Basic Metabolic Panel (non-fasting) (02/23/2024 [...] MD CHEMISTRY ORDERABLES [facility] [place] [address] * Potassium (02/22/2024 4:30 AM EDT) Potassium [...] CHEMISTRY ORDERABLE S [facility] [place] [address] * (ABNORMAL) Basic Metabolic Panel (non-fasting) (02/21/2024 [...] 31 [facility] Comment:Add-on request. Samp le too [...] Carpio MD CHEMISTRY ORDERABLES Performing Organization Address City/[facility]/ZIP Co de Phone Number [facility] [place] [address] * Lactate, whole blood, send to lab ([facility] (02/21/2024 9:45 AM EDT) [facility] Lactate WB 2.0 0.5 - 2.2 mmol/L [facility] Blood 02/21/2024 9:45 AM EDT 02/21/2024 9:52 AM EDT Narrative Resulting Agency Comment Spec In Lab Hayder Graham MD CHEMISTRY ORDERABLE S Performing Organization Address City/[facility]/ZIP Co de Phone Number [facility] [place] [address] * (ABNORMAL) Hepatic Function Panel (02/21/2024 9:45 AM EDT) [facility] Protein, Total 5.7(L) 6.1 - 8.0 [...] MD CHEMISTRY ORDERABLE S Performing Organization Address City/[facility]/ZIP Co de Phone Number [facility] [place] [address] * Lipase (02/21/2024 9:45 AM EDT) Lipase 56 0 - 60 unit/L [facility] Blood 02/21/2024 9:45 AM EDT 02/21/2024 9:52 AM EDT Narrative Resulting Agency Comment Spec In Lab Hayder Graham MD CHEMISTRY ORDERABLE S Performing Organization Address [facility] Co de Phone Number [facility] [place] [address] * Amylase (02/21/2024 9:45 AM EDT) Amylase 69 28 - 100 unit/L [facility] Blood 02/21/2024 9:45 AM EDT 02/21/2024 9:52 AM EDT Narrative Resulting Agency Comment Spec In Lab Hayder Graham MD CHEMISTRY ORDERABLE S Performing Organization Address [facility] Co de Phone Number [facility] [place] [address] * Potassium (02/21/2024 3:08 AM EDT) Potassium [...] CHEMISTRY ORDERABLE S [facility] [place] [address] * XR Chest PA & Lateral (Generic) (02/20/2024 10:19 AM EDT) WORKSTATION ID [id number] RAD Anatomical Region Laterality Modality Chest N/A Digital Radiogra phy Impressions 02/20/2024 1:11 PM EDT Small pleural effusions. No pneumothorax Thank you for letting us participate in the care of this patient. ??If you are a health care provider and have any questions regarding this report, please contact the number below. ??For patients who have questions please contact the health medicare biller that requested your imaging first. ? Electronically signed by: Rogerio Cruz MD, [facility] ??([phone]), at 02/20/2024 1:11 PM Narrative 02/20/2024 1:11 PM EDT EXAMINATION: XR CHEST PA AND LATERAL (GENERIC) CLINICAL HISTORY: s/p AVR/CABGx3 TECHNIQUE: PA and lateral views of the chest COMPARISON: 02/17/2024 FINDINGS: Support devices: Interval removal of [place] catheter, endotracheal tube and mediastinal chest tubes The cardiac silhouette is stable status post median sternotomy, CABG and aortic valve replacement. There are small pleural effusions. No pneumothorax. Procedure Note Rogerio Cruz MD - 02/20/2024 EXAMINATION: XR CHEST PA AND LATERAL (GENERIC) CLINICAL HISTORY: s/p AVR/CABGx3 TECHNIQUE: PA and lateral views of the chest COMPARISON: 02/17/2024 FINDINGS: Support devices: Interval removal of [place] catheter, endotracheal tubeand mediastinal chest tubes [...] who have questions please contactthe health medicare biller that requested your imaging first. Hayder Graham MD IMG DX ORDERABLES * Scan, Peripheral Blood (02/20/2024 4:23 AM EDT) Pathologist [facility] Plat estimate Decreased [facility] RBC Morphology Normal [facility] Blood 02/20/2024 4:23 AM EDT 02/20/2024 4:42 AM EDT Narrative Resulting Agency Comment Spec In Lab Minnie [facility] CECILIO ALEMAN Performing Organization Address City/State/[facility] Co de Phone Number [facility] [place] [address] * (ABNORMAL) Differential, Automated (02/20/2024 4:23 AM EDT) [facility] Neutrophil % 81.7 % [facility] Neutrophil Absolute 10.37(H) 1.70 - 6.10 x10(3)/mc L [facility] Lymph % 7.4 % [facility] Lymphocytes Abs 0.9 0.9 - 3.2 x10(3)/mc L [facility] Monocyte % 9.7 % [facility] Monocyte Abs 1.2(H) 0.3 - 0.9 x10(3)/mc L [facility] Eos % 0.1 % [facility] Eosinophils Abs 0.0 0.0 - 0.4 x10(3)/[facility] Basophil % 0.2 % [facility] Baso Absolute 0.0 0.0 - 0.1 x10(3)/[facility] LABORATORY Immature Gran % 0.90 % [facility] Comment: Immature granulocytes(IG's)percentage and absolute count will include metamyelocytes, myelocytes, and promyelocytes. Blood smears from CBCs yielding IG's will be scanned manually for concordance. If this scan disagrees with the automated IG or if promyelocytes are noted, a manual differential will be performed. Immature Gran Absolute 0.12(H) 0.00 - 0.04 x10(3)/[facility] LABORATORY Blood 02/20/2024 4:23 AM EDT 02/20/2024 4:42 AM EDT Narrative Resulting Agency Comment Spec In Lab Minnie FRENCH HEMATOLOGY CECILIO ALEMAN [facility] [place] [address] * (ABNORMAL) Hemogram (02/20/2024 4:23 AM EDT) White Blood Cell 12.7(H) 4.0 - 9.5 x10(3)/[facility] LABORATORY Red Blood Cell 4.26(L) 4.58 - 5.54 x10(6)/[facility] LABORATORY Hemoglobin 12.3(L) 13.7 - 16.5 [...] Platelet 88(L) 145 - 357 x10(3)/mc L [facility] RDW Standard Deviation 43.5 36.0 - 45.0 fL [facility] RDW coefficient of variation 13.7 11.4 - 13.8 % [facility] Mean Platelet Volume 10.2 7.6 - 12.9 fL [facility] NRBC% auto 0.0 % [facility] NRBC Absolute 0.000 0.000 - 0.000 x10(3)/mc L [facility] Blood 02/20/2024 4:23 AM EDT 02/20/2024 4:42 AM EDT Narrative Resulting Agency Comment Spec In Lab Minnie FRENCH HEMATOLOGY CECILIO ALEMAN [facility] [place] [address] * (ABNORMAL) Basic Metabolic Panel (non-fasting) (02/20/2024 4:23 AM EDT) Glucose 113 65 - 199 mg/dL [facility] Comment:Diabetes: >=200 mg/d L plus symptoms Blood Urea Nitrogen 20 10 - 20 mg/dL [facility] Comment:result rechecked-KS Creatinine 0.71(L) 0.80 - 1.50 mg/dL [facility] [...] MD CHEMISTRY ORDERABLE S Performing Organization Address [facility] Co de Phone Number [facility] [place] [address] * Potassium (02/19/2024 3:57 AM EDT) [facility] Potassium 4.3 3.5 - 5.0 mmol/L MAY[facility] [...] MD CHEMISTRY ORDERABLE S Performing Organization Address [facility]/ZIP Co de Phone Number [facility] [place] [address] * POCT Glucose (02/18/2024 8:24 AM EDT) Glucose, POC 157 65 - 199 mg/dL [facility] Comment: Supplemental ranges: <140 mg/dL before meals <180 mg/dL all other times of the day Blood 02/18/2024 8:24 AM EDT 02/18/2024 8:24 AM EDT Hayder Graham MD POINT OF CARE TEST ORDERABLES Performing Organization Address City/[facility]/ZIP Co de Phone Number [facility] [place] [address] * Scan, Peripheral Blood (02/18/2024 1:40 AM EDT) [facility] Plat estimate Decreased [facility] RBC Morphology Normal [facility] Blood 02/18/2024 1:40 AM EDT 02/18/2024 1:56 AM EDT Narrative Resulting Agency Comment Spec In Lab Neftali FRENCH HEMATOLOGY ORDER OLE Performing Organization Address City/[facility]/ZIP Co de Phone Number [facility] [place] [address] * (ABNORMAL) Differential, Automated (02/18/2024 1:40 AM EDT) [facility] Neutrophil % 87.1 % [facility] Neutrophil Absolute 15.03(H) 1.70 - 6.10 x10(3)/mc L [facility] Lymph % 3.0 % [facility] Lymphocytes Abs 0.5(L) 0.9 - 3.2 x10(3)/mc L [facility] Monocyte % 9.1 % [facility] Monocyte Abs 1.6(H) 0.3 - 0.9 x10(3)/mc L [facility] Eos % 0.0 % [facility] Eosinophils Abs 0.0 0.0 - 0.4 x10(3)/mc L [facility] Basophil % 0.2 % [place] [...] Absolute 0.10(H) 0.00 - 0.04 x10(3)/ L [facility] Blood 02/18/2024 1:40 AM EDT 02/18/2024 1:56 AM EDT Narrative Resulting Agency Comment Spec In Lab Neftali FRENCH HEMATOLOGY ORDER OLE [facility] [place] [address] * (ABNORMAL) Hemogram (02/18/2024 1:40 AM EDT) White Blood Cell 17.2(H) 4.0 - 9.5 x10(3)/ L [facility] [...] Standard Deviation 39.9 36.0 - 45.0 fL [facility] RDW coefficient of variation 13.2 11.4 - 13.8 % [facility] Mean Platelet Volume 9.9 7.6 - 12.9 fL [facility] NRBC% auto 0.0 % [facility] NRBC Absolute 0.000 0.000 - 0.000 x10(3)/mc L [facility] Blood 02/18/2024 1:40 AM EDT 02/18/2024 1:56 AM EDT Narrative Resulting Agency Comment Spec In Lab Neftali FRENCH HEMATOLOGY ORDER OLE [facility] [place] [address] * (ABNORMAL) Basic Metabolic Panel (non-fasting) (02/18/2024 [...] Resulting Agency Comment Spec In Lab Hayder Grhaam MD CHEMISTRY ORDERABLE S [facility] [place] [address] * (ABNORMAL) Troponin (02/18/2024 1:40 AM EDT) Troponin-T, High Sensitivity 342(H) <=22 ng/L [facility] [...] troponin value can be found in the [facility] Laboratory Test Catalog Troponin - [facility] Laboratory Test Catalog Reference: Fourth [place] Definition of Myocardial Infarction. Journal of the [employer] 2018;72:4895-4492 Blood 02/18/2024 1:40 AM EDT 02/18/2024 1:56 AM EDT Narrative Resulting Agency Comment Spec In Lab Hayder Graham MD CHEMISTRY ORDERABLE S [facility] [place] [address] * POCT Glucose (02/17/2024 8:13 PM EDT) Glucose, POC 142 65 - 199 mg/dL [facility] Comment: Supplemental ranges: <140 mg/dL before meals <180 mg/dL all other times of the day Blood 02/17/2024 8:13 PM EDT 02/17/2024 8:13 PM EDT Hayder Graham MD POINT OF CARE TEST ORDERABLES Performing Organization Address [facility]/ZIP Co de Phone Number [facility] [place] [address] * POCT Glucose (02/17/2024 5:42 PM EDT) Glucose, POC 160 65 - 199 mg/dL [facility] Comment: Supplemental ranges: <140 mg/dL before meals <180 mg/dL all other times of the day Blood 02/17/2024 5:42 PM EDT 02/17/2024 5:42 PM EDT Hayder Graham MD POINT OF CARE TEST ORDERABLES Performing Organization Address City/[facility]/ZIP Co de Phone Number [facility] [place] [address] * Hemoglobin (02/17/2024 5:42 PM EDT) Hemoglobin 13.7 13.7 - 16.5 g/dL [facility] Blood 02/17/2024 5:42 PM EDT 02/17/2024 6:10 PM EDT Narrative Resulting Agency Comment Spec In Lab Hayder Graham MD HEMATOLOGY ORDERABL ES Performing Organization Address [facility] Co de Phone Number [facility] [place] [address] * Potassium (02/17/2024 5:42 PM EDT) Potassium [...] MD CHEMISTRY ORDERABLE S Performing Organization Address [facility] de Phone Number [facility] [place] [address] * (ABNORMAL) BLOOD GAS 2 ARTERIAL (02/17/2024 [...] [facility] FIO2 Art 40 % [facility] PF Ratio Art 195 [facility] Blood 02/17/2024 4:18 PM EDT 02/17/2024 4:18 PM EDT Hayder Graham MD POINT OF CARE TEST ORDERABLES Performing Organization Address City/State/[facility] Co de Phone Number [facility] [place] [address] * XR Chest One View (02/17/2024 1:44 PM EDT) WORKSTATION ID [id number] RAD Anatomical Region Laterality Modality Chest N/A Digital Radiogra phy Impressions 02/17/2024 2:12 PM EDT 1. ??No definite pleural fluid collection or pneumothorax. 2. ??Right IJ [place]a catheter tip terminates in a descending [...] have questions please contact the health medicare biller that requested your imaging first. ? Electronically signed by: Denzel Hankins MD, [facility] ??([phone]), at 02/17/2024 2:12 PM Narrative 02/17/2024 2:12 PM EDT EXAMINATION: XR CHEST ONE VIEW CLINICAL HISTORY: s/p avr/cabg eval effusions TECHNIQUE: 1 view of the chest COMPARISON: Chest x-ray 01/09/2024, chest CT 02/03/2024 FINDINGS: ET tube tip terminates 5.2 cm above the carlos. Right IJ [place]aila catheter tip terminates in a descending [...] 5.2 cm above the carlos. Right IJ [place]-Ganzcatheter tip terminates in a descending branch [...] fluid collection or pneumothorax. 2. Right IJ [place]aila catheter tip terminates in a descending branch ofthe right pulmonary artery. Suggest catheter retraction. 3. Additional support lines and tubes as above. Thank you for letting us participate in the care of this patient. If youare a health care provider and have any questions regarding this report,please contact the number below. For patients who have questions please contactthe health medicare biller that requested your imaging first. Electronically signed by: Denzel Hankins MD, [facility]([phone]), at 02/17/2024 2:12 PM Hayder Graham MD [...] [facility] FIO2 Art 100 % [facility] PF Ratio Art 320 [facility] Blood 02/17/2024 1:31 PM EDT 02/17/2024 1:31 PM EDT Hayder Graham MD POINT OF CARE TEST ORDERABLES Performing Organization Address City/State/[facility] Co de Phone Number [facility] [place] [address] * (ABNORMAL) Coox2 (02/17/2024 1:21 PM EDT) [...] CARE TEST ORDERABLES [facility] [place] [address] * (ABNORMAL) BLOOD GAS 2 ARTERIAL (02/17/2024 [...] TEST ORDERABLES Performing Organization Address [facility] de Phone Number [facility] [place] [address] * (ABNORMAL) Fibrinogen (02/17/2024 12:10 PM EDT) [...] MD HEMATOLOGY ORDERABLE S Performing Organization Address [facility] Co de Phone Number [facility] [place] [address] * (ABNORMAL) Thrombin time (02/17/2024 12:10 PM [...] MD HEMATOLOGY ORDERABLE S Performing Organization Address [facility] de Phone Number [facility] [place] [address] * APTT (02/17/2024 12:10 PM EDT) Partial [...] MD HEMATOLOGY ORDERABLE S Performing Organization Address [facility] de Phone Number [facility] [place] [address] * (ABNORMAL) Prothrombin Time (02/17/2024 12:10 PM [...] HEMATOLOGY ORDERABLE S [facility] [place] [address] * (ABNORMAL) Hemogram (02/17/2024 12:10 PM EDT) [...] [facility] NRBC% auto 0.0 % [facility] NRBC Absolute 0.000 0.000 - 0.000 x10(3)/mc L [facility] Blood 02/17/2024 12:1 0 PM EDT 02/17/2024 12:19 PM EDT Narrative Resulting Agency Comment Spec In Lab Tara York MD HEMATOLOGY ORDERABLE S [facility] [address] [place] [address] * (ABNORMAL) BLOOD GAS 2 ARTERIAL (02/17/2024 [...] [facility] Comment: Noted by instrument tech. Please note: Patients with WBC >100,000 may [...] CARE TEST ORDERABLES [facility] [place] [address] * (ABNORMAL) BLOOD GAS 2 ARTERIAL (02/17/2024 [...] [facility] Comment: Noted by instrument tech. Please note: Patients with WBC >100,000 may [...] OF CARE TEST ORDERABLES Performing Organization Address City/[facility]/[place] [address] * (ABNORMAL) Hemoglobin and Hematocrit, blood (02/17/2024 11:04 AM EDT) Hemoglobin 9.6(L) 13.7 - 16.5 g/dL [facility] [...] HEMATOLOGY ORDERABL ES [facility] [place] [address] * (ABNORMAL) Platelet count (02/17/2024 11:04 AM EDT) Platelet 106(L) 145 - 357 x10(3)/mc L [facility] Immature Plt % 1.6 0.0 - 7.4 % [facility] Comment: Limitation of the Immature Platelet Fraction (IPF)-May be less reliable when the platelet count is less than 82c398/uL due to statistical imprecision. The IPF value [...] in a decreased state of production. References: [employer] The Clinical Value of the Immature Platelet Fraction (IPF) in Cell Recovery Document Number 10-1143 03/2011 [employer] The Role of the Immature Platelet Fraction (IPF) in the Differential Diagnosis of Thrombocytopenia, Document [id number] V002/15/14 P014 Blood 02/17/2024 11:0 4 AM EDT 02/17/2024 11:12 AM EDT Narrative Resulting Agency Comment Spec In Lab Hayder Graham MD HEMATOLOGY ORDERABL ES [facility] [place] [address] * (ABNORMAL) Fibrinogen (02/17/2024 11:04 AM EDT) Pathologist [facility] Fibrinogen 149(L) 200 - 393 mg/dL [facility] [...] HEMATOLOGY ORDERABL ES [facility] [place] [address] * (ABNORMAL) BLOOD GAS 2 ARTERIAL (02/17/2024 [...] OF CARE TEST ORDERABLES Performing Organization Address City/State/[facility] Co de Phone Number [facility] [place] [address] * (ABNORMAL) BLOOD GAS 2 ARTERIAL (02/17/2024 [...] OF CARE TEST ORDERABLES Performing Organization Address City/State/[facility] Co de Phone Number [facility] [place] [address] * Surgical Pathology Report (02/17/2024 10:01 AM EDT) Final Diagnosis [id number] ? Location: [facility]; [facility]; The signing pathologist has (i) examined the relevant preparation(s) for the specimen(s) and (ii) rendered or confirmed the diagnosis(es). . ?Surgical Pathology DIAGNOSIS Aortic valve leaflets, excision: Valve leaflets with myxoid degeneration, nodular fibrosis and dystrophic calcifications. Electronically signed by: ?Livier Montoya MD Verified: ??02/24/2024 13:49 ??Pathologist Performed at: ??-[facility] Dept. of [place]ology, [place] [address] Geriatric Nursing Assistant: Job Brewer MD, FCAP, ??CLIA Certificate: [id number] SPECIMEN(S) SUBMITTED A - Aortic Valve Leaflets, [...] Sections Processing Blocks submitted for decalcification: A1. Floral Manager sections in 1 cassette labeled A1. ??ajw 02/24/2024 1:49 PM EDT [facility] AORTIC STRUCTURE / Unknown 02/17/2024 10:01 AM EDT 02/17/2024 10:01 AM EDT Hayder Graham MD PATHOLOGY/CYTOLOGY ORDERABLES Performing Organization Address City/[facility]/ZIP Co de Phone Number [facility] [place] [address] * Specimen to Pathology (02/17/2024 10:01 AM EDT) AP Specimen 02/17/2024 10:0 1 AM EDT 02/17/2024 10:01 AM EDT Narrative [facility] - 02/17/2024 10:01 AM EDT Specimen requisition ordered. ??Separate Pathology report to follow Hayder Graham MD PATHOLOGY/CYTOLOGY ORDERABLES Performing Organization Address [facility]/ZIP Co de Phone Number [facility] [place] [address] * (ABNORMAL) BLOOD GAS 2 ARTERIAL (02/17/2024 [...] CARE TEST ORDERABLES [facility] [place] [address] * (ABNORMAL) BLOOD GAS 2 VENOUS (02/17/2024 9:34 AM EDT) pH, Venous 7.22(Criti marquez) 7.32 - 7.42 [facility] Comment:Noted by instrument tech. PCO2, Venous 43 41 - 51 mmHg [facility] Comment:Noted by instrument tech. PO2, Venous 57(H) 25 - 40 mmHg [facility] Comment:Noted by instrument tech. Bicarbonate, Venous 17.1 mmol/L [facility] Comment:Noted by instrument tech. Base Excess, Venous -10.6 mmol/L [facility] Comment:Noted by instrument tech. Hgb Blood Gas 11.2(L) 13.7 - 16.5 g/dL [facility] Comment:Noted by instrument tech. Oxyhemoglobin, Venous 86.5 % [facility] Comment:Noted by instrument tech. Carboxyhemoglob in, Venous 0.3 % [facility] Comment: Noted by instrument tech. Nonsmokers: 0.5-1.5% COHB Smokers: Variable, but usually less than 10% Toxic: 20-30% COHB Lethal: Greater than 60% COHB Methemoglobin, Venous 0.0 <=1.5 % [facility] Comment:Noted by instrument tech. Na Whole Blood 156(H) 135 - 145 mmol/L [facility] Comment:Noted by instrument tech. K Whole Blood 5.5(H) 3.5 - 5.0 mmol/L [facility] Comment: Noted by instrument tech. Please note: Patients with WBC >100,000 may have falsely elevated Potassium levels. Contact the Clinical Chemistry Laboratory if there are any questions. ICa Whole Blood 1.03(L) 1.15 - 1.33 mmol/L [facility] Comment: Noted by instrument tech. Note: ??Total bilirubin higher than 20 mg/dL may lead to falsely low ionized calcium. CL Whole Blood 100 98 - 107 mmol/L [facility] Comment:Noted by instrument tech. Gluc Whole Bld 132 65 - 199 mg/dL [facility] Comment: Noted by instrument tech. Diabetes: >=200 mg/dL plus symptoms Lactate WB 1.0 0.5 - 2.2 mmol/L [facility] Comment:Noted by instrument tech. Blood Gas Source Venous [facility] Blood 02/17/2024 9:34 AM EDT 02/17/2024 9:34 AM EDT Hayder Graham MD POINT OF CARE TEST ORDERABLES [facility] [place] [address] * (ABNORMAL) BLOOD GAS 2 ARTERIAL (02/17/2024 [...] OF CARE TEST ORDERABLES Performing Organization Address [facility] Co de Phone Number [facility] [place] [address] * POCT Glucose (02/17/2024 6:38 AM EDT) Glucose, POC 98 65 - 199 mg/dL [facility] Comment: Supplemental ranges: <140 mg/dL before meals <180 mg/dL all other times of the day Blood 02/17/2024 6:38 AM EDT 02/17/2024 6:38 AM EDT Hayder Graham MD POINT OF CARE TEST ORDERABLES Performing Organization Address [facility] Co de Phone Number [facility] [place] [address] * Transesophageal Echo/OR (02/17/2024 6:33 AM EDT) [...] transes[facility] post-operative [facility] of cardiac [...] 6 hours upon arrival to Unit. Give AL if unable to take PO, Routine Given [...] dose on Sat02/17/24 at 1400, Until Discontinued, [place] teeth and / or gums. Scan the CHG vial in the [employer] Q-Care Oral Care Kit from floor stock. Ventilator-associated pneumonia prophylaxis For use in ICU/Critical care locations ONLY. Obtain kit from Floor Stock location. Scan CHG vial in the [employer] Q-Care Oral Care Kit, Routine Given [...] restart at 50% of previous rate. Call housekeeper caregiver if goal not achieved at maximum rate. [...] PHENYLephrine and/or vasopressin ineffective. Call pager # [phone] if initiated. Titrate to keep systolic blood [...] 2.0 L/min/M2. Maximum volume 2 L. Call housekeeper caregiver for additional fluid orders: pager #[phone]. Rate/Dose Verify 02/18/2024 8:00 AM EDT 1 mL/hr 1 mL/hr Rate/Dose Verify 02/18/2024 6:00 AM EDT 1 mL/hr 1 mL/hr Rate/Dose Verify 02/18/2024 4:00 AM EDT 1 mL/hr 1 mL/hr sodium chloride 0.9% infusion 10-30 mL/hr, Intravenous, DAILY PRN, Starting on Sat02/17/24 at 1307, Until Sat02/18/24 at 0835, Side port TKO rate, per [facility] nursing protocol. Rate/Dose Verify 02/17/2024 8:00 PM EDT 30 mL/hr 30 mL/hr Rate/Dose Verify 02/17/2024 6:00 PM EDT 30 mL/hr 30 mL/h r Rate/Dose Verify 02/17/2024 5:00 PM EDT 30 mL/hr 30 mL/h r sodium chloride 0.9% infusion 10-30 mL/hr, Intravenous, DAILY PRN, Starting on Sat02/17/24 at 1307, Until Sat02/18/24 at 0835, Side port TKO rate, per [facility] nrusing protocol. Rate/Dose Verify 02/18/2024 8:00 AM [...] Polo Britton RN)[phone] (Given - Provider: Mishel Merrill RN)[phone] (Given - Provider: Mishel Merrill, COLBY)[phone] (Given [...] Routine documented in this encounter Care Teams Filters Assembler Relationship Specialty Start Date End Date Aparna Jordan APRN PCP - General Family Medicine 10/21/23 05/26/24 documented as of this encounter
--- OUTSIDE RECORDS SUMMARY | 2024-06-01 08:06 | XMS_ITS | Encounter Summary ---
Author Organization [facility] [place] [address] Care Team Providers Care Appliance Worker Name Role Phone Aparna Jordan MAURI Primary Care Provider [phone] Reason for Visit * Auth/Cert (Routine) Specialty [...] ARTERIAL GRAFT (WRVU 7.93) Hayder Graham MD [facility] CARDIOTHORACIC [place] [address] [facility] Referral ID Status Reason Start Date Expiration Date Visits Re quested Visits Authorized [id number] 1 1 Encounter Details Date Type Department Care Team (Late st Contact Info) Description 02/17/2024 7:30 AM EDT - 02/17/2024 1:26 PM EDT [place] [id number] Hayder Graham MD [facility] CARDIOTHORACIC [place] [address] ENDOSCOPIC HARVEST VEIN(S) FOR CABG (WRVU 0.31) Social History Tobacco Use Types Packs/Day Years Used Date Smoking Tobacco: Former Cigarettes Smokeless Tobacco: Never Comments:Quit 15 + years ago Alcohol Use Standard Drinks/Week Comments Yes 0 (1 standard drink = 0.6 oz pur e alcohol) rare [facility] Utilities Answer Date Recorded In the past [...] 1-2 weeks. Patient to follow up with Mobility Developer, Neftali Ernandez MD , in 2 weeks. Patient to follow up with Cardiac Surgeon, Dr. Hayder Graham, with a chest x-ray, EKG, and Echo. 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 Past Surgical History: Procedure Laterality Date PRO CABG, ARTERIAL, SINGLE N/A 02/17/2024 @CABG, USING ARTERIAL GRAFT;SINGLE ARTERIAL GRAFT (WRVU 33.75) performed by Hayder Graham MD at [facility] MAIN OR PRO CABG, ARTERY-VEIN, TWO N/A 02/17/2024 @CABG, TWO VENOUS GRAFTS & ARTERIAL GRAFT (WRVU 7.93) performed by Hayder Graham MD at [facility] MAIN OR PRO ENDOSCOPY W/VIDEO-ASST VEIN HARVEST, CABG Left 02/17/2024 ENDOSCOPIC HARVEST VEIN(S) FOR CABG (WRVU 0.31) performed by Hayder Graham MD at [facility] MAIN OR PRO REPLACEMENT PROSTHETIC AORTIC VALVE OPEN W CARDIOPULMONARY BYPASS HOMOGRF/STENT N/A 02/17/2024 @REPLACE AORTIC VALVE, OPEN, W\CPB, W\PROSTHETIC VALVE (WRVU 41.32) performed by Hayder Graham MD at [facility] MAIN OR Prior To Admission Medications [...] insufficiency. He has glaucoma. He used to [employer] until about 15 years ago. He has undergone prior herniorrhaphy. 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 Major Procedures/Operations: 02/17/24 s/p avr/cabgx3 CABG x 3 JOSE->LAD SVG->dRCA SVG->OM1 EVH from LLE AVR with a 23 mm Inspiris Bioprosthesis Hospital Course: Karlos Garcia was admitted to [facility] on 02/17/2024 via the Same Day Program. He was brought to the operating room where Dr. Haydre Graham performed a tissue aortic valve replacement [...] Hayder Graham and/or the Cardiac Surgery Physician Insurance Appraiser Team may be reached at . Antibiotic [...] Please refer to the card with the [place] Heart Association Guidelines for more information. You [...] Dr. Hayder Graham. You may use a [employer] Track or treadmill but avoid any pulling [...] friends, go to a movie, go to mormon, etc. Heavy activities: No hunting, skiing, jogging, [...] should resume a low fat, low cholesterol, [place] Heart Association Diet. Driving: No driving until [...] while being managed by your PCP and/or Mobility Developer. For future medication refills, please refer to your PCP and/or Mobility Developer after your discharge from our service. Thank you REMOVE CHEST TUBE SUTURES ON OR AFTER 03/02/24 Home oxygen therapy: N/A Follow up appointments: You should follow up with your PCP, Aparna Jordan APRN, in 1-2 weeks. Our office will schedule an appointment with your Mobility Developer, Neftali Ernandez MD , in 2 weeks. You have an appointment with your Cardiac Surgeon, Dr. Hayder Graham, 4 weeks with a chest x-ray, EKG, and Echo before your appointment. Cardiac Rehabilitation: Karlos Garcia was seen regarding participation in the outpatient Phase 2Cardiac Rehabilitation at [facility]. The patient agrees to a referral to this program. The referral will be sent at discharge and the patient should be contacted by the Program within 1- 2 weeks from discharge. Future Appointments and Orders Future Orders Complete By Expires Echocardiogram Transthoracic [22416 CPT(R)] 03/26/2024 09/25/2024 Process Instructions: Scheduling Instructions: Questions: Where will study be performed?: [facility] Clinics Does the patient have Congenital Heart Disease?: Does patient require sedation?: Sedation rationale: XR Chest PA & Lateral (Generic) [26344 65782 Custom] 03/26/2024 09/25/2024 Process Instructions: Scheduling Instructions: Questions: Portable exam?: Reason for exam and clinical history: s/p avr/cabg Clinical information / jerome questions for radiologist: Stat read required?: Date of injury if applicable: Requested Time: Where will study be performed?: [facility] Radiology Referral to Cardiac Rehab [[id number] Custom] As directed Process Instructions: If no progress note charted, please enter Clinical details in comments. Scheduling Instructions: Questions: My question or request is: s/p AVR/CABG. Cardiac rehab at [facility]. Referral to Home Health [REF34 Custom] As directed Process Instructions: If no progress note charted, please enter Clinical details in comments. Scheduling Instructions: Comments: Please evaluate Karlos Garcia for admission to Home Health. [address] Phone Number: Date of : 1960 Inpatient DOCUMENTATION FOR VNA SERVICES (INCLUDING THOSE PATIENTS WITH MEDICARE COVERAGE REQUIRING HOME VNA SERVICES AND/OR HOSPICE SERVICES) PATIENT'S LOCATION: Karlos Garcia [address] [place] [phone] Registered Nurse Hh Case Manager's Name: self/family In discussion with the attending physician, it is certified that this patient is under their care and that they, or a Nurse Practitioner, or Physician Insurance Appraiser who is working directly with them, hada [...] for services as follows: HOME HEALTH AGENCY: [facility] [address] [place] [phone] RN orders: Cardiopulmonary assessment, incisional assessment, assess [...] issues please call the Cardiology Office at [phone] FOR MEDICARE ONLY: (please delete this section [...] [facility] Section of Cardiac Surgery [facility] [address] FAX [phone] Date: 02/24/2024 CC: Aparna Jordan, MAURI Jordan, Aparna Sherman APRN [address] [place] [address] documented in this encounter Discharge Instructions * [...] Hayder Graham and/or the Cardiac Surgery Physician Insurance Appraiser Team may be reached at . Antibiotic [...] Please refer to the card with the [place] Heart Association Guidelines for more information. You [...] Dr. Hayder Graham. You may use a [employer] Track or treadmill but avoid any pulling [...] friends, go to a movie, go to mormon, etc. Heavy activities: No hunting, skiing, jogging, [...] should resume a low fat, low cholesterol, [place] Heart Association Diet. Driving: No driving until [...] while being managed by your PCP and/or Mobility Developer. For future medication refills, please refer to your PCP and/or Mobility Developer after your discharge from our service. Thank you REMOVE CHEST TUBE SUTURES ON OR AFTER 03/02/24 Home oxygen therapy: N/A Follow up appointments: You should follow up with your PCP, Aparna Jordan APRN, in 1-2 weeks. Our office will schedule an appointment with your Mobility Developer, Neftali Ernandez MD , in 2 weeks. You have an appointment with your Cardiac Surgeon, Dr. Hayder Graham, 4 weeks with a chest x-ray, EKG, and Echo before your appointment. Cardiac Rehabilitation: Karlos Garcia was seen regarding participation in the outpatient Phase 2Cardiac Rehabilitation at [facility]. The patient agrees to a referral to [...] 0600 and on the weekends please page [phone]. * Eric Barahona PA - 02/23/2024 9:27 [...] 0600 and on the weekends please page [phone]. * Tiffanie Owens - 02/22/2024 2:48 PM [...] d/c for 10 days. 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 * Kelley Hinson THERAPEUTIC ASSISTANT - 02/21/2024 10:15 AM EDT Physical Therapy [...] d/c for 10 days. 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 * Kelley Hinson PTA - 02/20/2024 3:32 [...] at that time Kelley Hinson PTA Pager: [phone] Physical Therapy Inpatient Rehab Department * Louisa [...] 0600 and on the weekends please page [phone]. * Maris Benavides, PT - 02/19/2024 11:22 [...] d/c for 10 days. 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 Precautions/Special Considerations: [...] outlined inthis evaluation. MARIS BENAVIDES, PT Pager: [phone] Physical Therapy Inpatient Rehabilitation Department Time IN / OUT: 0782-7260 Total Time: 38 (eval) minutes; * Antonio [...] 0600 and on the weekends please page [phone]. * Minnie Begum PA - 02/18/2024 8:25 [...] site CDI with SANJANA wrap Tubes/Lines/Drains: RIJ/PAC, [place], Med Ctx, L pleural CT, TPW, Naqvi [...] 0600 and on the weekends please page [phone]. * Kim Ha RETICLE PRINTER - 02/17/2024 2:25 PM EDT Respiratory Care [...] plan since last visit. Hayder Graham MD [phone] Source Note - Hayder Graham MD - [...] given written informed consent. Hayder Graham MD [phone] * Hayder Graham MD - 02/17/2024 7:00 [...] given written informed consent. Hayder Graham MD [phone] documented in this encounter Miscellaneous Notes * [...] information for follow-up Home Health & Hospice, [address] [place] [address] Cardiac Rehab, [address] [place] [address] Transportation: family or friend will provide Functional status prior to admission: Independent Home Environment: Others in the home: alone. Current Living Arrangements: home/apartment/condo. Accessibility Concerns:a few steps to enter 1 floor home. Current Functional Ability: Assistive Person and Equipment DME used at home: none DME Needed at Discharge: N/A Patient is insured through: Primary Insurance: [employer] Payor: [facility] / Plan: [facility] PPO / Product Type: *No Product [...] pain managed with scheduled Tylenol. Worked with [employer]. Ambulated in the roque multiple times during [...] anticipated Patient is insured through: Primary Insurance: [facility] Payor: [facility] / Plan: [facility] PPO / Product Type: *No Product type* / Secondary Insurance: N/A Last Physical Therapy Recommendation: home with home health (Str coming to stay for a week or two upon d/c) with to be determined (owns rolling walker, shower seat) Plan for discharge is: Home w/ Services Outpatient Agency/Support Group Needs: Homecare agency Home Health Services: Physical Therapy, Registered Nurse Agency Referrals: [facility]. [address] [place] [phone] Transportation: family or friend will provide Barriers to discharge: Discharge planning Plan going forward: Service Care Management will continue to follow and assist with discharge planning and coordination of care as indicated. Anticipated Date of Discharge: 02/22/2024 Rhett Bell RN RN/CM - Cellphone: [phone] Pager: [phone] Covering Service RN/CM * Plan of Care [...] Yang RN - 02/19/2024 10:44 AM EDT [facility] CARDIAC REHABILITATION Karlos Garcia was seen today regarding participation in the outpatient Phase 2 Cardiac Rehabilitation at [facility]. 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 (Only good for 180 days) Any patient receiving care in [place] must abide by [place] law. The hierarchy [...] (i) The agent with financial power of assistant prosecuting attorney or a conservator appointed in [...] steady place to sleep or slept in [facility] (including now)?: No In the past 12 months has the [employer], gas, oil, or water [employer] threatened to shut off services in your [...] confirmed as: [address] [facility] [address] Physical address: [address] [facility], [address] Social & Family Supports: All names listed [...] Information: none noted Health/Prescription Coverage: Primary Insurance: [facility] Payor: [facility] / Plan: [facility] PPO / Product Type: *No Product type* / Secondary Insurance: N/A ; Prescription Coverage: Yes Preferred Pharmacy: [id number] [address] Status: Patient is a : No Primary Care Provider confirmed: Aparna Jordan APRN [phone] Patient/Caregiver Goals of Treatment: dc to home Potential Needs for Transition of Care: home health care Agency Referrals: I have met with the patient to: discuss discharge planning needs. provide the [facility], Office of Care Management letter from the [employer] Inside Grinder pertaining to rehab referrals. provide a letter describing our affiliations within the [facility] and educate about their right to choose where referrals are sent. provide a list of Home Health Agencies / Durable Medical Equipment vendors which serve their preferred geographic area. provided patient with [facility] Star Quality Rating handout. They have requested referrals to: [facility] [address] [place] [address] Note routed to a Cosmetics Supervisor who will communicate referrals to facilities and [...] Reina Greene RN CM, BSN, CMGT- Ext [phone] * Plan of Care - Binta Trinidad [...] Operative Note Patient Name: Karlos Garcia : [id number] MR#: [id number] Case Date: 02/17/2024 Surgeon: Surgeon(s) and Role: * Hayder Graham MD - Primary * Neftali Menon PA - Physician Insurance Appraiser Preoperative diagnosis: CAD Postoperative diagnosis: CAD, intraoperative [...] mL Drains: Mediastinal and Left pleural Disposition: [facility] Condition: doing well without problems Attestation: Case Date: 02/17/2024 I performed this procedure without the involvement of a resident. HAYDER GRAHAM MD 02/17/2024 * Op Note - Hayder Graham MD - 02/17/2024 8:20 AM EDT [facility] Operative Note Patient Name: Karlos Garcia : [id number] MR#: [id number] Case Date: 02/17/2024 Surgeon: Surgeons and Role: * Hayder Graham MD - Primary * Neftali Menon PA - Physician Insurance Appraiser Preoperative diagnosis: CAD Postoperative diagnosis: CAD, intraoperative [...] mL Drains: Mediastinal and Left pleural Disposition: [facility] Procedure Description: The patient was brought [...] 3:00 PM EST Office Visit Cardiology at [address] [address] Neftali Ernandez MD [facility] [place] [address] Scheduled Orders Name Type Priority Associated Diagnoses [...] Aortic Valve Open W Cardiopulmonary Bypass Homogrf/Stent (08933) Yes 02/17/2024 7:28 AM EDT CAD Cabg, Artery-Vein, Two (16091) Yes 02/17/2024 7:28 AM EDT CAD Cabg, Arterial, Single (35123) Yes 02/17/2024 7:28 AM EDT CAD Endoscopy W/Video-Asst Vein [place], Cabg (68090) Yes 02/17/2024 7:28 AM EDT CAD POCT [...] Lab Hayder Graham MD CHEMISTRY ORDERABLE S [facility] [address] * (ABNORMAL) Basic Metabolic Panel (non-fasting) (02/23/2024 [...] Carpio MD CHEMISTRY ORDERABLES [facility] [place] [address] * Potassium (02/22/2024 4:30 AM EDT) Potassium [...] Lab Hayder Graham MD CHEMISTRY ORDERABLE S [facility] [place] [address] * (ABNORMAL) Basic Metabolic Panel (non-fasting) (02/21/2024 [...] Carpio MD CHEMISTRY ORDERABLES [facility] [place] [address] * Lactate, whole blood, send to lab ([facility]) (02/21/2024 9:45 AM EDT) [facility] Lactate WB 2.0 0.5 - 2.2 mmol/L [facility] Blood 02/21/2024 9:45 AM EDT 02/21/2024 9:52 AM EDT Narrative Resulting Agency Comment Spec In Lab Hayder Graham MD CHEMISTRY ORDERABLE S Performing Organization Address [facility] Co de Phone Number [facility] [place] [address] * (ABNORMAL) Hepatic Function Panel (02/21/2024 9:45 [...] Lab Hayder Graham MD CHEMISTRY ORDERABLE S [facility] [place] [address] * Lipase (02/21/2024 9:45 AM EDT) Lipase 56 0 - 60 unit/L [facility] Blood 02/21/2024 9:45 AM EDT 02/21/2024 9:52 AM EDT Narrative Resulting Agency Comment Spec In Lab Hayder Graham MD CHEMISTRY ORDERABLE S [facility] [place] [address] * Amylase (02/21/2024 9:45 AM EDT) Amylase 69 28 - 100 unit/L [facility] Blood 02/21/2024 9:45 AM EDT 02/21/2024 9:52 AM EDT Narrative Resulting Agency Comment Spec In Lab Hayder Graham MD CHEMISTRY ORDERABLE S Performing Organization Address City/[facility]/ZIP Co de Phone Number [facility] [address] * Potassium (02/21/2024 3:08 AM EDT) Potassium [...] Lab Hayder Graham MD CHEMISTRY ORDERABLE S [facility] [place] [address] * XR Chest PA & Lateral (Generic) (02/20/2024 10:19 AM EDT) WORKSTATION ID [id number] RAD Anatomical Region Laterality Modality Chest N/A Digital Radiogra phy Impressions 02/20/2024 1:11 PM EDT Small pleural effusions. No pneumothorax Thank you for letting us participate in the care of this patient. ??If you are a health care provider and have any questions regarding this report, please contact the number below. ??For patients who have questions please contact the health direct care worker that requested your imaging first. ? Narrative 02/20/2024 1:11 PM EDT EXAMINATION: XR CHEST PA AND LATERAL (GENERIC) CLINICAL HISTORY: s/p AVR/CABGx3 TECHNIQUE: PA and lateral views of the chest COMPARISON: 02/17/2024 FINDINGS: Support devices: Interval removal of Cuero-Kaila catheter, endotracheal tube and mediastinal chest tubes The cardiac silhouette is stable status post median sternotomy, CABG and aortic valve replacement. There are small pleural effusions. No pneumothorax. Procedure Note Rogerio Cruz MD - 02/20/2024 EXAMINATION: XR CHEST PA AND LATERAL (GENERIC) CLINICAL HISTORY: s/p AVR/CABGx3 TECHNIQUE: PA and lateral views of the chest COMPARISON: 02/17/2024 FINDINGS: Support devices: Interval removal of Cuero-Kaila catheter, endotracheal tubeand mediastinal chest tubes The [...] patients who have questions please contactthe health direct care worker that requested your imaging first. Hayder Graham MD IMG DX ORDERABLES * Scan, Peripheral Blood (02/20/2024 4:23 AM EDT) Pathologist [facility] Plat estimate Decreased [facility] RBC Morphology Normal [facility] Blood 02/20/2024 4:23 AM EDT 02/20/2024 4:42 AM EDT Narrative Resulting Agency Comment Spec In Lab Minnie FRENCH HEMATOLOGY CECILIO ALEMAN [facility] [place] [id number] * (ABNORMAL) Differential, Automated (02/20/2024 4:23 AM EDT) [facility] Neutrophil % 81.7 % [facility] Neutrophil Absolute 10.37(H) 1.70 - 6.10 x10(3)/mc L [facility] Lymph % 7.4 % [facility] Lymphocytes Abs 0.9 0.9 - 3.2 x10(3)/mc L [facility] Monocyte % 9.7 % [facility] Monocyte Abs 1.2(H) 0.3 - 0.9 x10(3)/mc L [facility] Eos % 0.1 % [facility] Eosinophils Abs 0.0 0.0 - 0.4 x10(3)/mc L [facility] Basophil % 0.2 % [facility] [...] Absolute 0.12(H) 0.00 - 0.04 x10(3)/mc L [facility] Blood 02/20/2024 4:23 AM EDT 02/20/2024 4:42 AM EDT Narrative Resulting Agency Comment Spec In Lab Minnie FRENCH HEMATOLOGY CECILIO ALEMAN [facility] [place] [address] * (ABNORMAL) Hemogram (02/20/2024 4:23 AM EDT) [...] [facility] NRBC% auto 0.0 % [facility] NRBC Absolute 0.000 0.000 - 0.000 x10(3)/mc L [facility] Blood 02/20/2024 4:23 AM EDT 02/20/2024 4:42 AM EDT Narrative Resulting Agency Comment Spec In Lab Minnie FRENCH HEMATOLOGY CECILIO ALEMAN [facility] [address] * (ABNORMAL) Basic Metabolic Panel (non-fasting) (02/20/2024 4:23 AM EDT) Glucose 113 65 - 199 mg/dL [facility] Comment:Diabetes: >=200 mg/d L plus symptoms Blood Urea Nitrogen 20 10 - 20 mg/dL [facility] Comment:result rechecked-NM Creatinine 0.71(L) 0.80 - 1.50 mg/dL [facility] [...] CHEMISTRY ORDERABLE S Performing Organization Address [facility] Co de Phone Number [facility] [address] * Potassium (02/19/2024 3:57 AM EDT) Potassium [...] CHEMISTRY ORDERABLE S Performing Organization Address [facility]/ZIP Co de Phone Number [facility] [address] * POCT Glucose (02/18/2024 8:24 AM EDT) Glucose, POC 157 65 - 199 mg/dL [facility] Comment: Supplemental ranges: <140 mg/dL before meals <180 mg/dL all other times of the day Blood 02/18/2024 8:24 AM EDT 02/18/2024 8:24 AM EDT Hayder Graham MD POINT OF CARE TEST ORDERABLES Performing Organization Address City/[facility]/ZIP Co de Phone Number [facility] [address] * Scan, Peripheral Blood (02/18/2024 1:40 AM EDT) Plat estimate Decreased [facility] RBC Morphology Normal [facility] Blood 02/18/2024 1:40 AM EDT 02/18/2024 1:56 AM EDT Narrative Resulting Agency Comment Spec In Lab Neftali FRENCH HEMATOLOGY ORDER OLE Performing Organization Address City/[facility] Co de Phone Number [facility] [address] * (ABNORMAL) Differential, Automated (02/18/2024 1:40 AM EDT) [facility] Neutrophil % 87.1 % [facility] Neutrophil Absolute 15.03(H) 1.70 - 6.10 x10(3)/mc L [facility] Lymph % 3.0 % [facility] Lymphocytes Abs 0.5(L) 0.9 - 3.2 x10(3)/mc L [facility] Monocyte % 9.1 % [facility] Monocyte Abs 1.6(H) 0.3 - 0.9 x10(3)/mc L [facility] Eos % 0.0 % [facility] Eosinophils Abs 0.0 0.0 - 0.4 x10(3)/mc L [facility] Basophil % 0.2 % [facility] [...] FRENCH HEMATOLOGY ORDER OLE [facility] [place] [address] * (ABNORMAL) Hemogram (02/18/2024 1:40 AM EDT) [...] RDW Standard Deviation 39.9 36.0 - 45.0 [facility] LABORATORY RDW coefficient of variation 13.2 11.4 - 13.8 % [facility] Mean Platelet Volume 9.9 7.6 - 12.9 fL [facility] NRBC% auto 0.0 % [facility] NRBC Absolute 0.000 0.000 - 0.000 x10(3)/mc L [facility] Blood 02/18/2024 1:40 AM EDT 02/18/2024 1:56 AM EDT Narrative Resulting Agency Comment Spec In Lab Neftali FRENCH HEMATOLOGY ORDER OLE [facility] [place] [address] * (ABNORMAL) Basic Metabolic Panel (non-fasting) (02/18/2024 [...] Lab Hayder Graham MD CHEMISTRY ORDERABLE S [facility] [place] [address] * (ABNORMAL) Troponin (02/18/2024 1:40 AM EDT) Pathologist [facility] Troponin-T, High Sensitivity 342(H) <=22 ng/L [facility] [...] can be found in the [facility] Test Catalog Troponin - [facility] Test Catalog Reference: Fourth Garrett Definition of Myocardial Infarction. Journal of the [place] [employer] 2018;72:8029-1030 Blood 02/18/2024 1:40 AM EDT 02/18/2024 1:56 AM EDT Narrative Resulting Agency Comment Spec In Lab Hayder Graham MD CHEMISTRY ORDERABLE S Performing Organization Address [facility] Co de Phone Number [facility] [place] [address] * POCT Glucose (02/17/2024 8:13 PM EDT) Glucose, POC 142 65 - 199 mg/dL [facility] Comment: Supplemental ranges: <140 mg/dL before meals <180 mg/dL all other times of the day Blood 02/17/2024 8:13 PM EDT 02/17/2024 8:13 PM EDT Hayder Graham MD POINT OF CARE TEST ORDERABLES Performing Organization Address [facility] de Phone Number [facility] [place] [address] * POCT Glucose (02/17/2024 5:42 PM EDT) Glucose, POC 160 65 - 199 mg/dL [facility] Comment: Supplemental ranges: <140 mg/dL before meals <180 mg/dL all other times of the day Blood 02/17/2024 5:42 PM EDT 02/17/2024 5:42 PM EDT Hayder Graham MD POINT OF CARE TEST ORDERABLES Performing Organization Address [facility] Co de Phone Number [facility] [place] [address] * Hemoglobin (02/17/2024 5:42 PM EDT) Hemoglobin 13.7 13.7 - 16.5 g/dL [facility] Blood 02/17/2024 5:42 PM EDT 02/17/2024 6:10 PM EDT Narrative Resulting Agency Comment Spec In Lab Hayder Graham MD HEMATOLOGY ORDERABL ES Performing Organization Address [facility]/ZIP Co de Phone Number [facility] [place] [address] * Potassium (02/17/2024 5:42 PM EDT) Pathologist [facility] Potassium 4.3 3.5 - 5.0 mmol/L [...] CHEMISTRY ORDERABLE S Performing Organization Address [facility] Co de Phone Number [facility] [place] [address] * (ABNORMAL) BLOOD GAS 2 ARTERIAL (02/17/2024 [...] [facility] FIO2 Art 40 % [facility] PF Ratio Art 195 [facility] Blood 02/17/2024 4:18 PM EDT 02/17/2024 4:18 PM EDT Hayder Graham MD POINT OF CARE TEST ORDERABLES Performing Organization Address City/State/[facility] Co de Phone Number [facility] [place] [address] * XR Chest One View (02/17/2024 1:44 PM EDT) [employer] WORKSTATION ID [id number] RAD Anatomical Region Laterality Modality Chest N/A Digital Radiogra phy Impressions 02/17/2024 2:12 PM EDT 1. ??No definite pleural fluid collection or pneumothorax. 2. ??Right IJ Cuero-Kaila catheter tip terminates in a descending branch of the right pulmonary artery. Suggest catheter retraction. 3. ??Additional support lines and tubes as above. Thank you for letting us participate in the care of this patient. ??If you are a health care provider and have any questions regarding this report, please contact the number below. ??For patients who have questions please contact the health direct care worker that requested your imaging first. ? Narrative 02/17/2024 2:12 PM EDT EXAMINATION: XR CHEST ONE VIEW CLINICAL HISTORY: s/p avr/cabg eval effusions TECHNIQUE: 1 view of the chest COMPARISON: Chest x-ray 01/09/2024, chest CT 02/03/2024 FINDINGS: ET tube tip terminates 5.2 cm above the carlos. Right IJ Cuero-Kaila catheter tip terminates in a descending branch [...] 5.2 cm above the carlos. Right IJ Cuero-Ganzcatheter tip terminates in a descending branch of [...] fluid collection or pneumothorax. 2. Right IJ Cuero-Kaila catheter tip terminates in a descending branch ofthe right pulmonary artery. Suggest catheter retraction. 3. Additional support lines and tubes as above. Thank you for letting us participate in the care of this patient. If youare a health care provider and have any questions regarding this report,please contact the number below. For patients who have questions please contactthe health direct care worker that requested your imaging first. Hayder Graham [...] [facility] FIO2 Art 100 % [facility] PF Ratio Art 320 [facility] Blood 02/17/2024 1:31 PM EDT 02/17/2024 1:31 PM EDT Hayder Graham MD POINT OF CARE TEST ORDERABLES [facility] [place] [address] * (ABNORMAL) Coox2 (02/17/2024 1:21 PM EDT) [...] OF CARE TEST ORDERABLES [facility] [place] [address] * (ABNORMAL) BLOOD GAS 2 ARTERIAL (02/17/2024 [...] OF CARE TEST ORDERABLES Performing Organization Address [facility] Co de Phone Number [facility] [place] [address] * (ABNORMAL) Fibrinogen (02/17/2024 12:10 PM EDT) [...] MD HEMATOLOGY ORDERABLE S Performing Organization Address [facility] Co de Phone Number [facility] [place] [address] * (ABNORMAL) Thrombin time (02/17/2024 12:10 PM [...] MD HEMATOLOGY ORDERABLE S Performing Organization Address [facility] Co de Phone Number [facility] [place] [address] * APTT (02/17/2024 12:10 PM EDT) Partial [...] MD HEMATOLOGY ORDERABLE S Performing Organization Address [facility]/ZIP Co de Phone Number [facility] [place] [address] * (ABNORMAL) Prothrombin Time (02/17/2024 12:10 PM [...] MD HEMATOLOGY ORDERABLE S [facility] [place] [address] * (ABNORMAL) Hemogram (02/17/2024 12:10 PM EDT) [...] [facility] NRBC% auto 0.0 % [facility] NRBC Absolute 0.000 0.000 - 0.000 x10(3)/mc L [facility] Blood 02/17/2024 12:1 0 PM EDT 02/17/2024 12:19 PM EDT Narrative Resulting Agency Comment Spec In Lab Tara York MD HEMATOLOGY ORDERABLE S [facility] [place] [address] * (ABNORMAL) BLOOD GAS 2 ARTERIAL (02/17/2024 [...] mmol/L [facility] Comment: Noted by nuclear plant instrument technician. Please note: Patients with WBC [...] OF CARE TEST ORDERABLES [facility] [place] [address] * (ABNORMAL) BLOOD GAS 2 ARTERIAL (02/17/2024 [...] mmol/L [facility] Comment: Noted by nuclear plant instrument technician. Please note: Patients with WBC [...] OF CARE TEST ORDERABLES Performing Organization Address [facility]/ZIP Co de Phone Number [facility] [address] * (ABNORMAL) Hemoglobin and Hematocrit, blood (02/17/2024 [...] MD HEMATOLOGY ORDERABL ES Performing Organization Address City/[facility]/ZIP Co de Phone Number [facility] [place] [address] * (ABNORMAL) Platelet count (02/17/2024 11:04 AM EDT) Pathologist [facility] Platelet 106(L) 145 - 357 x10(3)/mc L [facility] Immature Plt % 1.6 0.0 - 7.4 % [facility] Comment: Limitation of the Immature Platelet Fraction (IPF)-May be less reliable when the platelet count is less than 24h407/uL due to statistical imprecision. The IPF value [...] in a decreased state of production. References: [employer] The Clinical Value of the Immature Platelet Fraction (IPF) in Cell Recovery Document Number [id number] 03/2011 [employer] The Role of the Immature Platelet Fraction (IPF) in the Differential Diagnosis of Thrombocytopenia, Document [id number] V002/15/14 P014 Blood 02/17/2024 11:0 4 AM EDT 02/17/2024 11:12 AM EDT Narrative Resulting Agency Comment Spec In Lab Hayder Graham MD HEMATOLOGY ORDERABL ES Performing Organization Address City/State/[facility] Co de Phone Number [facility] [place] [address] * (ABNORMAL) Fibrinogen (02/17/2024 11:04 AM EDT) [...] Lab Hayder Graham MD HEMATOLOGY ORDERABL ES [facility] [place] [address] * (ABNORMAL) BLOOD GAS 2 ARTERIAL (02/17/2024 [...] OF CARE TEST ORDERABLES [facility] [place] [address] * (ABNORMAL) BLOOD GAS 2 ARTERIAL (02/17/2024 [...] OF CARE TEST ORDERABLES [facility] [place] [address] * Surgical Pathology Report (02/17/2024 10:01 AM EDT) Final Diagnosis [id number] ? Location: [facility]; [facility]; The signing pathologist has (i) examined the relevant preparation(s) for the specimen(s) and (ii) rendered or confirmed the diagnosis(es). . ?Surgical Pathology DIAGNOSIS Aortic valve leaflets, excision: Valve leaflets with myxoid degeneration, nodular fibrosis and dystrophic calcifications. Electronically signed by: ?Lindsay FERNANDEZ, Livier Gonzalez Verified: ??02/24/2024 13:49 ??Pathologist Performed at: ??[facility] Dept. of Pathology, [place] [address] Level Vial Inside Grinder: Job Brewer MD, FCAP, ??CLIA Certificate: [id number] SPECIMEN(S) SUBMITTED A - Aortic Valve Leaflets, [...] Processing Blocks submitted for decalcification: A1. Web Page Designer sections in 1 cassette labeled A1. ??ajw 02/24/2024 1:49 PM EDT [facility] AORTIC STRUCTURE / Unknown 02/17/2024 10:01 AM EDT 02/17/2024 10:01 AM EDT Hayder Graham MD PATHOLOGY/CYTOLOGY ORDERABLES Performing Organization Address City/[facility]/ZIP Co de Phone Number [facility] [place] [address] * Specimen to Pathology (02/17/2024 10:01 AM EDT) AP Specimen 02/17/2024 10:0 1 AM EDT 02/17/2024 10:01 AM EDT Narrative [facility] - 02/17/2024 10:01 AM EDT Specimen requisition ordered. ??Separate Pathology report to follow Hayder Graham MD PATHOLOGY/CYTOLOGY ORDERABLES Performing Organization Address City/[facility]/ZIP Co de Phone Number [facility] [address] * (ABNORMAL) BLOOD GAS 2 ARTERIAL (02/17/2024 9:35 AM EDT) pH, Arterial 7.33(L) 7.35 - 7.45 [facility] PCO2, Arterial 35 35 - 45 mmHg [facility] PO2, Arterial 318(H) 85 - 104 mmHg [facility] Bicarbonate, Arterial 17.9(L) 20.0 - 26.0 mmol/L [facility] Base Excess, Arterial -8.0(L) -3.0 [...] OF CARE TEST ORDERABLES [facility] [place] [address] * (ABNORMAL) BLOOD GAS 2 VENOUS (02/17/2024 9:34 AM EDT) pH, Venous 7.22(Criti marquez) 7.32 - 7.42 [facility] Comment:Noted by nuclear plant instrument technician. PCO2, Venous 43 41 - 51 mmHg [facility] Comment:Noted by nuclear plant instrument technician. PO2, Venous 57(H) 25 - 40 mmHg [facility] Comment:Noted by nuclear plant instrument technician. Bicarbonate, Venous 17.1 mmol/L [facility] Comment:Noted by nuclear plant instrument technician. Base Excess, Venous -10.6 mmol/L [facility] Comment:Noted by nuclear plant instrument technician. Hgb Blood Gas 11.2(L) 13.7 - 16.5 g/dL [facility] Comment:Noted by nuclear plant instrument technician. Oxyhemoglobin, Venous 86.5 % [facility] Comment:Noted by nuclear plant instrument technician. Carboxyhemoglob in, Venous 0.3 % [facility] Comment: Noted by nuclear plant instrument technician. Nonsmokers: 0.5-1.5% COHB Smokers: Variable, but usually less than 10% Toxic: 20-30% COHB Lethal: Greater than 60% COHB Methemoglobin, Venous 0.0 <=1.5 % [facility] Comment:Noted by nuclear plant instrument technician. Na Whole Blood 156(H) 135 - 145 mmol/L [facility] Comment:Noted by nuclear plant instrument technician. K Whole Blood 5.5(H) 3.5 - 5.0 mmol/L [facility] Comment: Noted by nuclear plant instrument technician. Please note: Patients with WBC >100,000 may have falsely elevated Potassium levels. Contact the Clinical Chemistry Laboratory if there are any questions. ICa Whole Blood 1.03(L) 1.15 - 1.33 mmol/L [facility] Comment: Noted by nuclear plant instrument technician. Note: ??Total bilirubin higher than 20 mg/dL may lead to falsely low ionized calcium. CL Whole Blood 100 98 - 107 mmol/L [facility] Comment:Noted by nuclear plant instrument technician. Gluc Whole Bld 132 65 - 199 mg/dL [facility] Comment: Noted by nuclear plant instrument technician. Diabetes: >=200 mg/dL plus symptoms Lactate WB 1.0 0.5 - 2.2 mmol/L [facility] Comment:Noted by nuclear plant instrument technician. Blood Gas Source Venous [facility] Blood 02/17/2024 9:34 AM EDT 02/17/2024 9:34 AM EDT Hayder Graham MD POINT OF CARE TEST ORDERABLES [facility] [place] [address] * (ABNORMAL) BLOOD GAS 2 ARTERIAL (02/17/2024 [...] OF CARE TEST ORDERABLES Performing Organization Address [facility] Co de Phone Number [facility] [place] [address] * POCT Glucose (02/17/2024 6:38 AM EDT) Glucose, POC 98 65 - 199 mg/dL [facility] Comment: Supplemental ranges: <140 mg/dL before meals <180 mg/dL all other times of the day Blood 02/17/2024 6:38 AM EDT 02/17/2024 6:38 AM EDT Hayder rGaham MD POINT OF CARE TEST ORDERABLES Performing Organization Address [facility] Co de Phone Number [facility] [place] [address] * Transesophageal Echo/OR (02/17/2024 6:33 AM EDT) Anatomical Region Laterality Modality Cardiac Other 02/17/2024 6:33 AM EDT Narrative 02/17/2024 4:08 PM EDT ? Version: 1 Name: PATENAUDE, KARLOS ?Study Date: 02/17/2024, 6: 33 AM [...] [facility] cardiac [...] Routine documented in this encounter Care Teams Appliance Worker Relationship Specialty Start Date End Date Aparna Jordan APRN PCP - General Family Medicine 10/21/23 05/26/24 documented as of this encounter
--- OUTSIDE RECORDS SUMMARY | 2024-06-01 08:06 | XMS_ITS | Encounter Summary ---
Author Organization Formerly [facility] [place] [address] Care Team Providers Care Label Sewer Name Role Phone Vanessa Christian Lane DOTSON Primary Care Provider Reason for Referral * Diagnostic Test (Routine) - Closed Specialty Diagnoses / Procedures Referred By Contac t Referred To Contact Radiology Diagnoses Nonrheumatic aortic valve stenosis Procedures CT Chest wo Contrast (Generic) Louisa Cho PA [facility] [place] [address] [facility] [place] [address] Referral ID Status Reason Start Date Expiration Date V isits Requested Visits Authorized [id number] Closed Specialty Service Requested 01/10/2024 07/11/2025 1 1 Reason for Visit * Diagnostic Test (Routine) - Closed Specialty Diagnoses / Procedures Referred By Contac t Referred To Contact Radiology Diagnoses Nonrheumatic aortic valve stenosis Procedures CT Chest wo Contrast (Generic) Louisa Cho PA [facility] [place] [address] [facility] [place] [address] Referral ID Status Reason Start Date Expiration Date V isits Requested Visits Authorized [id number] Closed Specialty Service Requested 01/10/2024 07/11/2025 1 1 Encounter Details Date Type Department Care Team (Latest Contact Info) Description 02/03/2024 7:36 AM EDT - 02/03/2024 8:05 AM EDT Hospital Encounter CT Scan at [facility] [place] [address] Zak Farmer MD [facility] [place] [address] Nonrheumatic aortic valve stenosis Discharge Disposition: Home Social History Tobacco Use Types Packs/Day Years Used Date Smoking Tobacco: Former Cigarettes Smokeless Tobacco: Never Comments:Quit 15 + years ago Alcohol Use Standard Drinks/Week Comments Yes 0 (1 standard drink = 0.6 oz pur e alcohol) rare [facility] Inpatient Questions Answer Date Recorded Does [...] 3:00 PM EST Office Visit Cardiology at [address] [place] [address] Neftali Ernandez MD [facility] [place] [address] documented as of this encounter Procedures Procedure Name Priority Date/Time Associated Diagnosis Comments CT CHEST WO CONTRAST (GENERIC) Routine 02/03/2024 7:44 AM EDT Nonrheumatic aortic valve stenosis documented in this encounter Results * CT Chest wo Contrast (Generic) (02/03/2024 7:44 AM EDT) [employer] WORKSTATION ID [id number] DH RAD Anatomical Region Laterality Modality Chest [...] questions please contact the health critical care educator that requested your imaging first. ? Narrative [...] nodule along the minor fissure (series [id number]) and a 8 mm right lower lobe [...] have questions please contactthe health critical care educator that requested your imaging first. Zak Farmer MD IMG CT ORDERABLES documented in this encounter Visit Diagnoses Diagnosis Nonrheumatic aortic valve stenosis Aortic valve disorders documented in this encounter Care Teams Label Sewer Relationship Specialty Start Date End Date Vanessa Christian APRN PCP - General Family Medicine 10/21/23 05/26/24 documented as of this encounter
--- OUTSIDE RECORDS SUMMARY | 2024-06-01 08:07 | XMS_ITS | Encounter Summary ---
Author Organization [facility] [place] [address] Care Team Providers Care Roustabout Supervisor Name Role Phone Vanessa Christian APRN Primary Care Provider [phone] Encounter Details Date Type Department Care Team (Late st Contact Info) Description 10/21/2023 Abstract Cardiology at [address] [place] [phone] Adam Mayes RN Social History Tobacco Use [...] 3:00 PM EST Office Visit Cardiology at [address] [place] [address] Neftali Ernandez MD [facility] [place] [address] documented as of this encounter Visit Diagnoses Not on filedocumented in this encounter Care Teams Roustabout Supervisor Relationship Specialty Start Date End Date Vanessa Christian APRN PCP - General Family Medicine 10/21/23 05/26/24 documented as of this encounter
--- OUTSIDE RECORDS SUMMARY | 2024-06-01 08:07 | XMS_ITS | Encounter Summary ---
Author Organization [facility] [place] [address] Care Team Providers Care Customer Service Leader Name Role Phone Vanessa Christian Lane DOTSON Primary Care Provider [phone] Encounter Details Date Type Department Care Team (Late st Contact Info) Description 01/09/2024 2:30 PM EDT Clinical Support Same Day at [facility] [place] [phone] Social History Tobacco Use Types Packs/Day Years Used Date Smoking Tobacco: Former Cigarettes Smokeless Tobacco: Never Comments:Quit 15 + years ago Alcohol Use Standard Drinks/Week Comments Yes 0 (1 standard drink = 0.6 oz pur e alcohol) rare [facility] Inpatient Questions Answer Date Recorded [...] you tube link for a video about [facility] cardiac surgery. Instructed to bring the booklet [...] type and screen performed while in the [facility]. Sent to Radiology for chest x-ray. Special medication instructions: None Procedure date: not booked. Darian documented in this encounter Plan of Treatment Upcoming Encounters Date Type Department Care Team (Late st Contact Info) Description 11/30/2024 3:00 PM EST Office Visit Cardiology at [address] [place] [address] Neftali Ernandez MD [facility] [place] [address] documented as of this encounter Visit Diagnoses Not on filedocumented in this encounter Care Teams Customer Service Leader Relationship Specialty Start Date End Date Vanessa Christian APRN PCP - General Family Medicine 10/21/23 05/26/24 documented as of this encounter
--- OUTSIDE RECORDS SUMMARY | 2024-06-01 08:07 | XMS_ITS | Encounter Summary ---
Author Organization [facility] [place] [address] Care Team Providers Care Elementary School Teacher'S Aide Name Role Phone Vanessa Christian APRN Primary Care Provider [phone] Encounter Details Date Type Department Care Team [...] PM EST Office Visit Cardiology at [address] [place] [phone] Neftali Ernandez MD [facility] [place] [address] documented as of this encounter Visit Diagnoses Not on filedocumented in this encounter Care Teams Elementary [employer] Teacher'S Aide Relationship Specialty Start Date End Date Vanessa Christian APRN PCP - General Family Medicine 10/21/23 05/26/24 documented as of this encounter
--- OUTSIDE RECORDS SUMMARY | 2024-06-01 08:07 | XMS_ITS | Encounter Summary ---
Author Organization [facility] [place] [address] Care Team Providers Care Manager Retirement Name Role Phone Vanessa Christian APRN Primary Care Provider [phone] Encounter Details Date Type Department Care Team [...] PM EST Office Visit Cardiology at [address] [place] [phone] Neftali Ernandez MD [facility] [place] [address] documented as of this encounter Visit Diagnoses Not on filedocumented in this encounter Care Teams Manager Retirement Relationship Specialty Start Date End Date Vanessa Christian APRN PCP - General Family Medicine 10/21/23 05/26/24 documented as of this encounter
--- OUTSIDE RECORDS SUMMARY | 2024-06-01 08:07 | XMS_ITS | Encounter Summary ---
Author Organization [facility] Address [facility] Ivana linareseileen [place] [id number] Care Team Providers Care Reproduction Technician Name Role Phone Vanessa Christian MAURI Primary Care Provider [phone] Reason for Referral * Consultation (Routine) - Closed Specialty Diagnoses / Procedures Referred By Contac t Referred To Contact Cardiac Surgery Diagnoses Nonrheumatic aortic valve stenosis significant - TAVR ( defers to Card Surg d/t age) Errol Loya MD [facility] [place] [address] [facility] [place] [address] Referral ID Status Reason Start Date Expiration Date V isits Requested Visits Authorized [id number] Closed Consult, Test & Treat 10/21/2023 10/20/2024 1 1 Reason for Visit * Reason Comments Chest Pain Shortness of Breath Aortic Stenosis Encounter Details Date Type Department Care Team (Late st Contact Info) Description 10/21/2023 1:20 PM EST Office Visit Cardiology at [address] [address] [facility] [place] [address] Nonrheumatic aortic valve stenosis Social History Tobacco [...] Problem List Diagnosis Aortic stenosis 12/2022 TTE ([facility]): VITA 0.8-0.9 cm2 (MG 28 mmHg, DOI 3.6 m/s, SVI 35 cc/m2). Trace regurgitation. Normal bi-v s/f, no other valve findings Gastroesophageal reflux Nevus of face Right druze Hypertension HLD (hyperlipidemia) MEDICATIONS: Current Outpatient Medications [...] the meantime will refer to T at [facility] for further evaluation. [...] the meantime will refer to T at [facility] for further evaluation. [...] 3:00 PM EST Office Visit Cardiology at [address] [place] [phone] [facility] [place] [address] Scheduled Referrals Name Type Priority Associated Diagnoses Order Schedule Amb Referral to Structural Heart Outpatient Referral Routine Nonrheumatic aortic valve stenosis Ordered: 10/21/2023 documented as of this encounter Visit Diagnoses Diagnosis Nonrheumatic aortic valve stenosis Aortic valve disorders documented in this encounter Care Teams Reproduction Technician Relationship Specialty Start Date End Date Vanessa Christian APRN PCP - General Family Medicine 10/21/23 05/26/24 documented as of this encounter
--- OUTSIDE RECORDS SUMMARY | 2024-06-01 08:07 | XMS_ITS | Encounter Summary ---
Author Organization [facility] [place] [address] Care Team Providers Care Industrial Gas Service Helper Name Role Phone Vanessa Christian MAURI Primary Care Provider [phone] Encounter Details Date Type Department Care Team (Latest Contact Info) Description 01/09/2024 3:00 PM EDT Laboratory [place] [phone] Nonrheumatic aortic valve stenosis Social History Tobacco Use Types Packs/Day Years Used Date Smoking Tobacco: Former Cigarettes Smokeless Tobacco: Never Comments:Quit 15 + years ago Alcohol Use Standard Drinks/Week Comments Yes 0 (1 standard drink = 0.6 oz pur e alcohol) rare [facility] Inpatient Questions Answer Date Recorded Prevent Contact [...] PM EST Office Visit Cardiology at [address] [phone] Neftali Ernandez MD [facility] [place] [address] documented as of this encounter Procedures Procedure Name Priority Date/Time Associated Diagnosis Comments ABORH RECHECK STATUS Routine 01/09/2024 2:58 PM EDT HEMOGRAM Routine 01/09/2024 2:58 PM EDT Nonrheumatic aortic valve stenosis DIFFERENTIAL, AUTOMATED Routine 01/09/2024 2:58 PM EDT Nonrheumatic aortic valve stenosis TYPE AND SCREEN, SDP (FUTURE SURGERY, [facility] SAME DAY PROGRAM ONLY) Routine 01/09/2024 2:58 [...] PM EDT) ABORH Recheck Order Order Placed [facility] ABORH Type Recheck Completed [facility] Blood 01/09/2024 2:58 PM EDT 01/09/2024 3:08 PM EDT Narrative Resulting Agency Comment Spec In Lab Zak Farmer MD BLOOD BANK LAB CECILIO ALEMAN [facility] [place] [address] * Differential, Automated (01/09/2024 2:58 PM EDT) Neutrophil % 70.5 % [facility] Neutrophil Absolute 4.34 1.70 - 6.10 x10(3)/[facility] LABOR[facility] Lymph % 18.9 % [facility] Lymphocytes Abs 1.2 0.9 - 3.2 x10(3)/[facility] LABORATORY Monocyte % 8.0 % [facility] Monocyte Abs 0.5 0.3 - 0.9 x10(3)/[facility] LABORATORY Eos % 1.6 % [facility] Eosinophils Abs 0.1 0.0 - 0.4 x10(3)/[facility] LABORATORY Basophil % 0.5 % [facility] Baso Absolute 0.0 0.0 - 0.1 x10(3)/[facility] LABORATORY Immature Gran % 0.50 % [facility] Comment: Immature [...] Lab Zak Farmer MD HEMATOLOGY ORDERABL ES [facility] [place] [address] * Hemogram (01/09/2024 2:58 PM EDT) White Blood Cell 6.2 4.0 - 9.5 x10(3)/[facility] LABORATORY Red Blood Cell 5.53 4.58 - 5.54 x10(6)/[facility] Hemoglobin 16.1 13.7 - 16.5 g/dL [facility] Hematocrit 46.9 40.5 - 48.5 % [facility] Mean Cell Volume 84.8 82.9 - 93.1 fL [facility] Mean Cell Hemoglobin 29.1 27.5 - 32.1 pg [facility] Mean Cell Hemoglobin Concentration 34.3 32.0 - 35.7 g/dL [facility] Platelet 187 145 - 357 x10(3)/[facility]AT[facility] RDW Standard Deviation 39.2 36.0 - 45.0 fL [facility] RDW coefficient of variation 12.6 11.4 - 13.8 % [facility] Mean Platelet Volume 9.5 7.6 - 12.9 fL [facility] NRBC% auto 0.0 % [facility] NRBC Absolute 0.000 0.000 - 0.000 x10(3)/[facility] Blood 01/09/2024 2:58 PM EDT 01/09/2024 3:03 PM EDT Narrative Resulting Agency Comment Spec In Lab Zak Farmer MD HEMATOLOGY ORDERABL ES [facility] [place] [address] * Basic Metabolic Panel (non-fasting) (01/09/2024 2:58 PM EDT) Glucose 102 65 - 199 mg/dL [facility] Comment:Diabetes: >=200 mg/d L plus symptoms Blood Urea Nitrogen 15 10 - 20 mg/dL [facility] Creatinine 0.94 0.80 - 1.50 mg/dL [facility] Sodium 137 135 - 145 mmol/L [facility] Potassium 4.5 3.5 - 5.0 mmol/L [facility] Comment: Please note: ??Patients with WBC >100,000 may have falsely elevated Potassium levels. ??For accurate Potassium quantification in these patients send serum separator tube (gold top) for subsequent determinations. ??Contact the Clinical Chemistry Laboratory if there are any questions. Chloride 103 98 - 107 mmol/L [facility] Carbon Dioxide 27 22 - 31 mmol/L [facility] Anion Gap 7 5 - 15 mmol/L [facility] Calcium 9.5 8.5 - 10.5 mg/dL [facility] Est Glomerular Filtration Rate 91 >=60 mL/min/1. 73 m?? [facility] [...] Lab Zak Farmer MD CHEMISTRY ORDERABLE S [facility] [place] [address] * Hepatic Function Panel (01/09/2024 2:58 PM EDT) Protein, Total 6.7 6.1 - 8.0 g/dL [facility] Albumin 4.5 3.2 - 5.2 g/dL [facility] Aspartate Aminotransferase 21 0 - 39 unit/L [facility] Alanine Aminotransferase 21 0 - 55 unit/L [facility] Alkaline Phosphatase 81 40 - 130 unit/L [facility] Bilirubin, Total 0.7 0.2 - 1.3 mg/dL [facility] Bilirubin, Direct 0.2 0.0 - 0.3 mg/dL [facility] Blood 01/09/2024 2:58 PM EDT 01/09/2024 3:03 PM EDT Narrative Resulting Agency Comment Spec In Lab Zak Farmer MD CHEMISTRY ORDERABLE S Performing Organization Address [facility] Co de Phone Number [facility] [place] [address] * Prothrombin Time (01/09/2024 2:58 PM EDT) Prothrombin Time 10.6 9.4 - 12.5 sec [facility] International Normalization Ratio 0.9 [facility] Comment: An INR <2.0 indicates [...] ES Performing Organization Address [facility] Co de Phone Number [facility] [place] [address] * Type and Screen Future Surgery, [facility] SAME DAY PROGRAM ONLY) (01/09/2024 2:58 PM EDT) ABORH Type O NEGATIVE [facility] Patient BB History Not Found [facility] Expires at [id number] on: 02-20-2024 [facility] Ab Screen Interp Negative [facility] Blood 01/09/2024 2:58 PM EDT 01/09/2024 2:58 PM EDT Narrative Resulting Agency Comment Spec In Lab Zak Farmer MD BLOOD BANK LAB ORDE RABLES Performing Organization Address City/[facility]/[place]IP [place] [address] documented in this encounter Visit Diagnoses Diagnosis Nonrheumatic aortic valve stenosis Aortic valve disorders documented in this encounter Care Teams Industrial Gas Service Helper Relationship Specialty Start Date End Date Vanessa Christian APRN PCP - General Family Medicine 10/21/23 05/26/24 documented as of this encounter
--- OUTSIDE RECORDS SUMMARY | 2024-06-01 08:07 | XMS_ITS | Continuity of Care Document ---
Author Organization [facility] Address [address] [place] [address] Care Team Providers Care Adult Educator Name Role Phone VANESSA JORDAN Primary Care Provider [phone] Assessment No assessment recorded. Plan of Treatment Reminders Order Date Submit Date Provider Last Modified By Organization Details Last Modified Time Details Appointments None record ed. Lab None record ed. Referral None record ed. Procedures None record ed. Surgeries None record ed. Imaging None record ed. Medication Orders None record ed. Patient TargetsNo targets recorded. Patient InstructionsNo instructions recorded. Reason for Referral Materials Management Manager Referral for Roland ateral hearing loss Referring [...] M16.12; Problem Code Type: ICD-10; Not Available [facility] 4 05:35:57 Inguinal hernia Active 2022 Problem Code: K40.90; Problem Code Type: ICD-10; Not Available [facility] 4 05:35:57 Heart murmur Active 2022 Problem Code: R01.1; Problem Code Type: ICD-10; Not Available [facility] 4 05:35:57 Dyspnea Active 2022 Problem Code: R06.09; Problem Code Type: ICD-10; Not Available [facility] 4 05:35:57 Chest pain Active 2022 Problem Code: R07.89; Problem Code Type: ICD-10; Not Available [facility] 4 05:35:57 Melanocytic nevus Active 2022 Problem Code: D22.9; Problem Code Type: ICD-10; Not Available [facility] 4 05:35:57 Aortic stenosis, non-rheumatic Active 2022 Problem Code: I35.0; Problem Code Type: ICD-10; Not Available [facility] 4 05:35:58 Aortic stenosis, non-rheumatic Completed 202208/14/2023 Problem Code: I35.0; Problem Code Type: ICD-10; Not Available [facility] 4 05:35:58 Indigestion Active 2023 GLORIA CAMP LPN null, [facility] 4 08:48:57 Coronary artery bypass grafts x 3 Active 2023 Kelly Duran RN null, [facility] 4 10:30:01 At increased risk of atrial fibrillation Active 2023 TATYANA LEDEZMA MD [address], [place], [address] , [facility] 4 13:52:01 Anemia Active 2023 TATYANA LEDEZMA MD [address], [place], [address] , [facility] 13:54:39 Problem Notes None recorded. Procedures Surgical History Date Name Laterality Status Provider Name and Address Organization Details Recorded Time coronary artery bypass graft completed Hudson Reeder MA [facility], [facility] 03/04/2024 14:54:09 Imaging Results None recorded. [...] es. Take 1 hr prior. Started by [facility]. Not Available Not Available Not Available doxycycli [...] BY MOUTH DAILY 02/24 completed stopped by [facility] Not Available Not Available Not Available brimonidi [...] hours by oral route as needed. active [facility] Not Available Not Available No t Available Aspirin Childrens 81 mg chewable tablet Take 1 tablet by mouth once a day active Not Available Not Available No t Available lisinopri l 5 mg tablet TAKE 1 TABLET BY MOUTH EVERY DAY 02/24 completed stopped by [facility] Not Available Not Available Not Available mupirocin [...] day by oral route. active started by [facility] Not Available Not Available Not Available dorzolami [...] Updated DateTime 4 167.64 cm 22.6 kg/m2 23334.6 5 g 63 /min 99 % 99 % 102 mm[Hg] 54 mm[Hg] Hudson Reeder MA [facility] 10:27:28 Social History Question Answer Notes LastModified by Organizat ion Details LastModified Time Tobacco Smoking Status Former Smoker Hudson Reeder MA null, [facility] 03/06/2024 10:24:50 Do You Have An Advance Directive? Yes Registered 08/15/23 Updated 01/12/24 Information not available 01/15/2024 When Did You Quit Smoking? 11-15years sincelastc igarette [email or web address] Information not available 03/06/2024 Do You Have A Medical Power Of Manager Configuration? Yes Received 08/30/23, Scanned. Copies Sent To [facility] And Patient 09/02/23. Information not available 09/02/2023 What Was The Date Of Your Most Recent Tobacco Screening? 03/06/2024 [email or web address] Information not available 03/06/2024 What Is Your Current Pack Years? 30ormorepa ckyears [email or web address] Information not available 03/06/2024 How Much Tobacco Do You Smoke? 1 PPD [email or web address] Information not available 03/06/2024 How Many Years Have You Smoked Tobacco? 40 [email or web address] Information not available 03/06/2024 Do You Or Have You Ever Used Any Other Forms Of Tobacco Or Nicotine? No [email or web address] Information not available 03/06/2024 Sex: Male Functional [...] Recorded Time Tdap 08/26/2013 completed Not Available [facility] 05:30:17 Td(adult) unspecified formulation 11/21/2022 completed Not Available [facility] 10/18/2023 05:30:17 COVID-19, mRNA, LNP-S, PF, 100 mcg/0.5mL dose or 50 mcg/0.25mL dose 01/24/2021 completed Not Available [facility] 10/18/19 05:30:18 COVID-19, mRNA, LNP-S, PF, 100 mcg/0.5mL dose or 50 mcg/0.25mL dose 02/21/2021 completed Not Available [facility] 10/18/19 05:30:18 COVID-19, mRNA, LNP-S, PF, 100 mcg/0.5mL dose or 50 mcg/0.25mL dose 09/11/2021 completed Not Available [facility] 10/18/19 05:30:18 influenza, unspecified formulation 07/26/2021 completed Not Available [facility] 10/18/2023 05:30:18 influenza, unspecified formulation 07/26/2022 completed Not Available [facility] 10/18/2023 05:30:18 influenza, unspecified formulation 07/28/2020 completed Not Available [facility] 10/18/2023 05:30:18 influenza, unspecified formulation 08/05/2019 completed Not Available [facility] 10/18/2023 05:30:18 influenza, unspecified formulation 08/12/2018 completed Not Available [facility] 10/18/2023 05:30:18 Past Encounters Encounter ID Performer Location Encounter Start Date Encounter Closed Date Diagnosis/Indication Diagnosis SNOMED-CT Code [id number] TATYANA LEDEZMA MD [address] [address] 03/06/2024 10:15:07 03/06/2024 11:14:28 Postoperative visit [id number] Aortic rosa m nosis, non-rheumatic [id number] Stented co ronary artery 775670234 At [facility], [facility]1983 risk of atrial fibrillation 630904861 Anemia [id number] Health Concerns Section Related Observation LastModified by Organization Detai ls LastModified Time None Recorded Concern Status LastModified by Organization Details LastModified Time None Recorded Payers Encounter Date Sequence Insurance Name Policy Number Policy Alicia Covered Member ID Alicia Member ID Guarantor Name 03/06/2024 1 R [id number] Karlos Jessica Patenaude [id number] Karlos Jessica Patenamary Notes Date Note Type Note Provider Name and Address Organization Details Recorded Time 03/06/2024 text/html HPI Notes: Ana Paula marlow is here today for a postop evaluation MD [address], [place], [address], [facility]. 03/08/2024 13:57:34
--- OUTSIDE RECORDS SUMMARY | 2024-06-01 08:07 | XMS_ITS | Encounter Summary ---
Author Organization [facility] [place] [address] Care Team Providers Care Gear Hobber Set Up Operator Name Role Phone Vanessa Christian APRN Primary Care Provider [phone] Encounter Details Date Type Department Care Team (Late st Contact Info) Description 10/21/2023 Abstract Cardiology at [address] [phone] Adam Mayes RN Social History Tobacco Use [...] PM EST Office Visit Cardiology at [address] [address] Neftali Ernandez MD [facility] [place] [address] documented as of this encounter Visit Diagnoses Not on filedocumented in this encounter Care Teams Gear Hobber Set Up Operator Relationship Specialty Start Date End Date Vanessa Christian APRN PCP - General Family Medicine 10/21/23 05/26/24 documented as of this encounter
--- OUTSIDE RECORDS SUMMARY | 2024-06-01 08:07 | XMS_ITS | Encounter Summary ---
Author Organization [facility] [place] [address] Care Team Providers Care Farmworker Name Role Phone Vanessa Christian APRN Primary Care Provider [phone] Encounter Details Date Type Department Care Team (Late st Contact Info) Description 12/26/2023 Notes Only Cardiology at [address] [address] Neftali Ernandez MD [facility] [place] [address] Social History Tobacco Use Types Packs/Day Years [...] images reviewed from [facility]. Indeed, the aortic valve appears severely stenotic. Cannotrule out bicuspid valve documented in this encounter Plan of Treatment Upcoming Encounters Date Type Department Care Team (Late st Contact Info) Description 11/30/2024 3:00 PM EST Office Visit Cardiology at [address] [address] Neftali Ernandez MD [facility] [place] [address] documented as of this encounter Visit Diagnoses Not on filedocumented in this encounter Care Teams Farmworker Relationship Specialty Start Date End Date Vanessa Christian APRN PCP - General Family Medicine 10/21/23 05/26/24 documented as of this encounter
--- OUTSIDE RECORDS SUMMARY | 2024-06-01 08:07 | XMS_ITS | Encounter Summary ---
Author Organization [facility] [place] [address] Care Team Providers Care Yard Worker Name Role Phone Vanessa Christian MAURI Primary Care Provider [phone] Encounter Details Date Type Department Care Team (Late st Contact Info) Description 01/10/2024 Orders [place] [phone] Lawson Napoles PA [facility] [place] [address] Screening for cardiovascular condition; Aortic valve stenosis, [...] 3:00 PM EST Office Visit Cardiology at [address] [place] [phone] Neftali Ernandez MD [facility] [place] [address] documented as of this encounter Visit Diagnoses Diagnosis Screening for cardiovascular condition Screening for other and unspecified cardiovascular conditions Aortic valve stenosis, etiology of cardiac valve disease unspecified documented in this encounter Care Teams Yard Worker Relationship Specialty Start Date End Date Vanessa Christian APRN PCP - General Family Medicine 10/21/23 05/26/24 documented as of this encounter
--- OUTSIDE RECORDS SUMMARY | 2024-06-01 08:07 | XMS_ITS | Encounter Summary ---
Author Organization [facility] Address [facility] [place] [address] Care Team Providers Care It Software Developer Name Role Phone Vanessa Christian MAURI Primary Care Provider [phone] Encounter Details Date Type Department Care Team (Latest Contact Info) Description 01/09/2024 3:02 PM EDT - 01/09/2024 11:59 PM EDT Hospital Encounter XRay at [address] [place] [address] Zak Farmer MD [facility] [place] [address] Nonrheumatic aortic valve stenosis Discharge Disposition: Home Social History Tobacco Use Types Packs/Day Years Used Date Smoking Tobacco: Former Cigarettes Smokeless Tobacco: Never Comments:Quit 15 + years ago Alcohol Use Standard Drinks/Week Comments Yes 0 (1 standard drink = 0.6 oz pur e alcohol) rare [facility] Inpatient Questions Answer Date Recorded Prevent [...] 3:00 PM EST Office Visit Cardiology at [address] [place] [address] Neftali Ernandez MD [facility] [place] [address] documented as of this encounter Procedures Procedure [...] who have questions please contact the health regular senior care provider that requested your imaging first. [...] patients who have questions please contactthe health regular senior care provider that requested your imaging first. Zak Farmer MD IMG DX ORDERABLES documented in this encounter Visit Diagnoses Diagnosis Nonrheumatic aortic valve stenosis Aortic valve disorders documented in this encounter Care Teams It Software Developer Relationship Specialty Start Date End Date Vanessa Christian APRN PCP - General Family Medicine 10/21/23 05/26/24 documented as of this encounter
--- OUTSIDE RECORDS SUMMARY | 2024-06-01 08:07 | XMS_ITS | Encounter Summary ---
Author Organization [facility] [place] [address] Care Team Providers Care Electrical Continuity Tester Name Role Phone Victor M Lafleur MD Primary Care Provider [phone] Encounter Details Date Type Department Care Team (Late st Contact Info) Description 09/26/2023 Abstract Cardiology at [address] [address] Karen Billy, RN Nonrheumatic aortic [...] 3:00 PM EST Office Visit Cardiology at [address] [place] [address] [facility] [address] documented as of this encounter Visit Diagnoses Diagnosis Nonrheumatic aortic valve stenosis Aortic valve disorders Nevus of face Benign neoplasm of skin of other and unspecified parts of face documented in this encounter Care Teams Electrical Continuity Tester Relationship Specialty Start Date End Date Victor M Lafleur MD PCP - General 10/02/13 10/20/23 documented as of this encounter
--- OUTSIDE RECORDS SUMMARY | 2024-06-01 08:07 | XMS_ITS | Encounter Summary ---
Author Organization [facility] Address [facility] [place] [address] Care Team Providers Care Equipment Validation Specialist Name Role Phone Vanessa Christian MOLD SHOP SUPERVISOR Primary Care Provider [phone] Reason for Referral * Diagnostic Test (Routine) - Closed Specialty Diagnoses / Procedures Referred By Contac t Referred To Contact Radiology Diagnoses Nonrheumatic aortic valve stenosis Procedures CT Chest wo Contrast (Generic) Louisa Reid PA [facility] CARDIOTH[place] [address] [facility] [place] [address] Referral ID Status Reason Start Date Expiration Date V isits Requested Visits Authorized [id number] Closed Specialty Service Requested 01/10/2024 07/11/2025 1 1 Encounter Details Date Type Department Care Team (Late st Contact Info) Description 01/09/2024 Orders [place] [address] Zak Farmer MD [facility] [place]AC[place] [address] Nonrheumatic aortic valve stenosis Social History Tobacco [...] encounter Miscellaneous Notes * Addendum Note - Loiusa Reid PA - 01/09/2024 4:32 PM EDTAddended by: LOUISA REID on: 01/10/2024 03:21 PM Modules accepted: Orders documented in this encounter Plan of Treatment Upcoming Encounters Date Type Department Care Team (Late st Contact Info) Description 11/30/2024 3:00 PM EST Office Visit Cardiology at [address] [place] [address] Neftali Ernandez MD [facility] [place] [address] documented as of this encounter Results * CT Chest wo Contrast (Generic) (02/03/2024 7:44 AM EDT) WORKSTATION ID [id number] RAD Anatomical Region Laterality Modality Chest Computed [...] have questions please contact the health home health care coordinator that requested your imaging [...] who have questions please contactthe health home health care coordinator that requested your imaging first. Zak Farmer MD IMG CT ORDERABLES documented in this encounter Visit Diagnoses Diagnosis Nonrheumatic aortic valve stenosis Aortic valve disorders Nonrheumatic aortic valve stenosis Aortic valve disorders documented in this encounter Care Teams Equipment Validation Specialist Relationship Specialty Start Date End Date Vanessa Christian APRN PCP - General Family Medicine 10/21/23 05/26/24 documented as of this encounter
--- OUTSIDE RECORDS SUMMARY | 2024-06-01 08:07 | XMS_ITS | Encounter Summary ---
Author Organization [facility] [place] [address] Care Team Providers Care Dry Color Tester Name Role Phone Vanessa Christian MAURI Primary Care Provider [phone] Reason for Visit * Auth/Cert (Routine) Specialty [...] W RHC (WRVU 5.9) Rima Dickinson MD [facility] [place] [address] [facility] Referral ID Status Reason Start Date Expiration Date Visits Re quested Visits Authorized [id number] 1 1 Encounter Details Date Type Department Care Team (Latest Contact Info) Description 02/03/2024 8:06 AM EDT - 02/03/2024 2:54 PM EDT Hospital Encounter Bariatric [place] [address] Rima Dickinson MD [facility] [place] [address] Screening for cardiovascular condition; Aortic valve stenosis, [...] lbs Follow-up Visits Follow up with your knock up assembler in 2-4 weeks Access Site 'Black and Blue' and tenderness is expected during the first week Call if you noted a mass (lump) greater than the size of a ellis Call Office with any Questions and if you have any of the following Clarence Lane M.D Interventional Traveling Engineer [employer] Web Application Developer #: [phone] * Attachments The following attachments cannot be sent through Care Everywhere. * CAD (Coronary Artery Disease): General Info (Tuvaluan) * Coronary Angiogram: Post-op (Tuvaluan) documented in this encounter Medications at Time [...] MD - 02/03/2024 11:48 AM EDT [facility] Interventional Cardiology Adult Pre-Procedure H&P Update: Cardiac Catheterization Karlos Anthony [id number] 1960 Chief Complaint: Aortic stenosis HPI: Mr. [...] is inthe chart Clarence Lane MD Interventional Traveling Engineer 02/03/24 11:48 AM documented in this encounter Miscellaneous Notes * Brief Op Note - Clarence Lane MD - 02/03/2024 12:51 PM EDT Preliminary Cardiac Catheterization Procedure Note: Patient Name: Karlos Anthony : [id number] MR#: [id number] Case Date: 02/03/2024 [employer] Web Application Developer: Surgeon(s) and Role: * Saira Lua MD [...] 3:00 PM EST Office Visit Cardiology at [address] [address] Neftali Ernandez MD [facility] [place] [address] Scheduled Orders Name Type Priority Associated Diagnoses [...] Modality Other Narrative 02/12/2024 3:47 PM EDT ?[facility] ? Cardiac Catheterization/Intervention Report ? Patient Name: Patenaude, Karlos ? Procedure Date: 02/03/2024 ? A #: [id number] ? Primary Physician: Saira Lua ? Case #: [id number] ? File Name: [id number] ? Catheterization Order Number: [id number] ? [facility] ? Final Report [place], [place] ? Patient Name: ? Karlos Patenaude ? ID#: ?[id number] ? : ?1960 ? Procedure Date: ? [...] Lua M.D. performed the coronary angiography. ? Saria Lua M.D. ? Electronically Signed by: Saira Lua M.D. ? Report Finalized: 02/12/2024 ??15:43 ? Procedure Note Saira Lua MD - 02/12/2024 [facility] Cardiac Catheterization/Intervention Report Patient Name: Karlos Anthony Procedure Date: 02/03/2024 A #: [id number] Primary Physician: Saira Lua Case #: [id number] File Name: [id number] Catheterization Order Number: [id number] [facility] FinalReport [place], [place] Patient Name: Karlos Anthony ID#:[id number] :1960 Procedure Date: February 03, 2024 Case [...] was designated as ASA Class III. The [facility] clinical frailty scale is 3: [...] (Bezet) 372 ms MUSE SYSTEM Calculated P [place] 59 degrees MUSE SYSTEM Calculated R [place] 34 degrees MUSE SYSTEM Calculated T [place] 63 degrees MUSE SYSTEM INTERPRETATION Sinus bradycardia [...] MD) documented in this encounter Care Teams Dry Color Tester Relationship Specialty Start Date End Date Vanessa Christian APRN PCP - General Family Medicine 10/21/23 05/26/24 documented as of this encounter
--- OUTSIDE RECORDS SUMMARY | 2024-06-01 08:07 | XMS_ITS | Encounter Summary ---
[place] [address] Care Team Providers Care Sourcing Internship Name Role Phone Victor M Lafleur MD Primary Care Provider [phone] Reason for Visit * Reason Onset Date Comments Referral 09/20/2023 Encounter Details Date Type Department Care Team (Late st Contact Info) Description 09/20/2023 Telephone Cardiology at [address] [address] Karen Billy, silo painter Social History Tobacco Use Types Packs/Day Years [...] 3:00 PM EST Office Visit Cardiology at [address] [place] [address] Neftali Ernandez MD [facility] [place] [address] documented as of this encounter Visit Diagnoses Not on filedocumented in this encounter Care Teams Sourcing Internship Relationship Specialty Start Date End Date Victor M Lafleur MD PCP - General 10/02/13 10/20/23 documented as of this encounter
--- OUTSIDE RECORDS SUMMARY | 2024-06-01 08:07 | XMS_ITS | Encounter Summary ---
Author Organization [facility] Address [facility] [place] [address] Care Team Providers Care Human Capital Manager Name Role Phone Vanessa Christian MAURI Primary Care Provider [phone] Reason for Visit * Consultation (Routine) - Closed Specialty Diagnoses / Procedures Referred By Contac t Referred To Contact Cardiac Surgery Diagnoses Nonrheumatic aortic valve stenosis significant - TAVR ( defers to Card Surg d/t age) Neftali Ernandez MD [facility] [place] [address] Zak Farmer MD [facility] CARDIOTHORACIC [place] [address] Referral ID Status Reason Start Date Expiration Date V isits Requested Visits Authorized [id number] Closed Consult, Test & Treat 10/21/2023 10/20/2024 1 1 Encounter Details Date Type Department Care Team (Late st Contact Info) Description 01/09/2024 1:40 PM EDT Office Visit [place] [address] Zak Farmer MD [facility] CARDIOTHORACIC [place] [address] Nonrheumatic aortic valve stenosis Social [...] office. Best personal regards, Zak Farmer MD [phone] In aggregate 55 minutes were spent evaluating [...] PM EST Office Visit Cardiology at [address] [place] [address] Neftali Ernandez MD [facility] [place] [address] documented as of this encounter Results * [...] questions please contact the health career technical counselor that requested your imaging first. ? Electronically signed by: Toby Dave MD, [facility] ([phone]), at 01/09/2024 3:11 PM Narrative 01/09/2024 3:11 [...] have questions please contactthe health career technical counselor that requested your imaging first. Electronically signed by: Toby Dave MD, [facility]([phone]), at 01/09/2024 3:11 PM Zak Farmer MD [...] [facility] [place] [address] * Hepatic Function Panel (01/09/2024 2:58 PM EDT) Pathologist [facility] Protein, Total 6.7 6.1 - 8.0 g/dL [...] CHEMISTRY ORDERABLE S Performing Organization Address [facility] Co de Phone Number [facility] [place] [address] * Prothrombin Time (01/09/2024 2:58 PM EDT) [facility] Prothrombin Time 10.6 9.4 - [...] HEMATOLOGY ORDERABL ES Performing Organization Address [facility]/ZIP Co de Phone Number [facility] [place] [address] * Type and Screen Future Surgery, [facility] [place] ONLY) (01/09/2024 2:58 PM EDT) ABORH Type O NEGATIVE [facility] Patient BB History Not Found [facility] Expires at 2359 on: 02-20-2024 [facility] Ab Screen Interp Negative [facility] Blood 01/09/2024 2:58 PM EDT 01/09/2024 2:58 PM EDT Narrative Resulting Agency Comment Spec In Lab Zak Farmer MD BLOOD BANK LAB [facility] Organization Address City/State/ZIP Co de Phone Number [facility] [place] [address] documented in this encounter Visit Diagnoses Diagnosis Nonrheumatic aortic valve stenosis Aortic valve disorders Nonrheumatic aortic valve stenosis Aortic valve disorders documented in this encounter Care Teams Human Capital Manager Relationship Specialty Start Date End Date Vanessa Christian APRN PCP - General Family Medicine 10/21/23 05/26/24 documented as of this encounter
--- OUTSIDE RECORDS SUMMARY | 2024-06-03 08:13 | XMS_ITS | Clinical Summary ---
Author Organization [facility] Address [address] [place] [address] Care Team Providers Care Oral Therapist Name Role Phone Vanessa Christian NP Primary Care Provider [phone] Social History Tobacco Use Types Packs/Day Years [...] COVID-19 Vaccine (2022-24 season) 2023 Care Teams Oral Therapist Relationship Specialty Start Date End Date Vanessa Christian NP [address] [place] [address] PCP - General Family Medicine - Primary Care 10/07/23
--- OUTSIDE RECORDS SUMMARY | 2024-06-03 08:13 | XMS_ITS | Encounter Summary ---
Author Organization [facility] Address [address] [place] [address] Care Team Providers Care Retail Account Manager Name Role Phone Vanessa Christian Lane MONCADA Primary Care Provider [phone] Encounter Details Date Type Department Care Team (Late st Contact Info) Description 10/24/2023 Lab Requisition [facility] Pathology & Laboratory Medicine - [address] [address] Oscar Nichole MD [address] [place] [address] [phone] Factitial dermatitis Social History Tobacco Use Types [...] if applicable. 10/28/2023 11:24 EST [facility] Final Diagnosis A. SKIN OF YARSANISM, LEFT, SHAVE BIOPSY: - Seborrheic keratosis, pigmented. 10/28/2023 11:24 EST [facility] Attestation By the signature below, the attending physician certifies that they have 1) personally conducted a gross and/or microscopic examination of the described specimen(s), and/or personally interpreted the results of laboratory testing of the described specimen(s), and 2) personally rendered or confirmed the above diagnosis. 10/28/2023 11:24 [facility] at [address] Microscopic Description The stratum corneum is thickened by compact and basketweave orthokeratosis with formation of horn pseudocysts. The epidermis is acanthotic with formation of broad and anastomosing trabeculae. The trabeculae are composed of basaloid keratinocytes with round uniform nuclei. The keratinocytes have a variable amount of melanin pigment. 10/28/2023 11:24 [facility] Clinical History Pigmented 2 cm patch; clinical diagnosis code: L98.1 10/28/2023 11:24 [facility] Gross Description A. Received in formalin labelled with proper patient identification (initials P, A) and left sabianist is a shave biopsy of an irregular [...] A3. Nora Anderson 10/25/2023 8:47 10/28/2023 11:24 [facility] Performing Lab [facility] 10/28/2023 11:24 [facility] Scanned Images 10/28/2023 11:24 [facility] Tissue SPECIMEN FROM SKIN / Unknown 10/24/2023 14:30 EST 10/24/2023 22:04 EST Oscar Nichole MD PATHOLOGY ORDERABLES [facility] [address] [place] [address] documented in this encounter Visit Diagnoses Diagnosis Factitial dermatitis Dermatitis factitia (artefacta) documented in this encounter Care Teams Retail Account Manager Relationship Specialty Start Date End Date Vanessa Christian NP [address] [place] [address] PCP - General Family Medicine - Primary Care 10/07/23 documented as of this encounter
--- OUTSIDE RECORDS SUMMARY | 2024-06-03 08:13 | XMS_ITS | Clinical Summary ---
Author Organization [facility] Address [facility] [place] [address] Care Team Providers Care Boat Oar Maker Name Role Phone Vanessa Christian Lane DOTSON Primary Care Provider [phone] Allergies No known active allergies Medications Medication [...] the meantime will refer to SHT at [facility] for further evaluation. Logistics and preliminary review of TONY were reviewed with patient. - Refer to SHT Hypertension 08/14/2023 Resolved Problems Problem Noted Date Diagnosed Date Resolved Date Nevus of face 09/26/2023 05/27/2024 Overview (09/26/2023): Right worship Chest pressure 08/14/2023 10/21/2023 SILVA (dyspnea on exertion) 08/14/2023 HLD (hyperlipidemia) 08/14/2023 024 Encounters Date Type Department Care Team Description 05/27/2024 11:00 AM EDT Office Visit Cardiology at [address] [place] [address] Neftali Ernandez MD ASCVD (arteriosclerotic cardiovascular disease); Nonrheumatic aortic valve stenosis 05/27/2024 Travel 05/20/2024 Travel 03/12/2024 2:40 PM EDT Office Visit Cardiac Surgery at [facility] [place] [address] Zak Farmer MD Coronary artery disease, unspecified vessel or lesion type, unspecified whether angina present, unspecified whether [place] or transplanted heart 03/12/2024 1:30 PM EDT - 03/12/2024 11:59 PM EDT Hospital Encounter XRay at [address] [place] [address] Coronary artery disease, unspecified vessel or lesion type, unspecified whether angina present, unspecified whether [place] or transplanted heart Discharge Disposition: Home 03/12/2024 Travel from Last 3 Months Social History Tobacco Use Types Packs/Day Years Used Date Smoking Tobacco: Former Cigarettes Smokeless Tobacco: Never Comments:Quit 15 + years ago Alcohol Use Standard Drinks/Week Comments Yes 0 (1 standard drink = 0.6 oz pur e alcohol) rare [facility] Utilities Answer Date Recorded In the past 12 months has th e [employer], gas, oil, or water [employer] threatened to shut off services in your [...] 3:00 PM EST Office Visit Cardiology at [address] [place] [address] Neftali Ernandez MD [facility] [place] [address] Health Maintenance Due Date Last Done Comments [...] series) 06/07/2024 Medical Devices Implanted Type Area Program Evaluator Device Identifier Shelf Expiration Date Model / Serial / Lot Cable,Cut,Edg ,Blnt,Ss,3tpr ([id number]) - [id number] Implanted:Qty : 1 on 02/17/2024 by Zak Farmer MD at [facility] IMPLANTS Midline: Chest [employer] - [id number] 09/02/2028 [id number] / / [id number] Valve Coronary Aortic 23mm Tissue Trnscath Biopros Inspiris ([id number]) (Autoreq) - [id number] Implanted:Qty : 1 on 02/17/2024 by Zak Farmer MD at [facility] IMPLANTS Heart [employer] - TSAI LI 09/15/2027 [id number] 23MM / [id number] / Procedures Procedure Name Priority Date/Time Associated Diagnosis Comments EKG 12-LEAD Routine 05/27/2024 11:24 AM EDT EKG 12-LEAD Routine 03/12/2024 2:35 PM EDT Coronary artery disease, unspecified vessel or lesion type, unspecified whether angina present, unspecified whether [place] or transplanted heart XR CHEST PA AND LATERAL Routine 03/12/2024 1:42 PM EDT Coronary artery disease, unspecified vessel or lesion type, unspecified whether angina present, unspecified whether [place] or transplanted heart from Last 3 Months Results * EKG 12 Lead (05/27/2024 11:24 AM EDT) Only the most recent of2 resultswithin the time period is included. Ventricular rate 54 BPM MUSE SYSTEM Atrial Rate 54 BPM MUSE SYSTEM P-R Interval 216 ms MUSE SYSTEM QRS Duration 92 ms MUSE SYSTEM Q-T Interval 388 ms MUSE SYSTEM QTC Calculated (Bezet) 367 ms MUSE SYSTEM Calculated P [place] 12 degrees MUSE SYSTEM Calculated R [place] 27 degrees MUSE SYSTEM Calculated T [place] 62 degrees MUSE SYSTEM INTERPRETATION Sinus bradycardia with 1st degree A-V block Otherwise normal ECG When compared with ECG of 12-MAR-2024 14:35, T wave inversion no longer evident in Anterior leads Confirmed by MD Ernandez Daniel ([id number]) on 06/01/2024 8:36:17 AM MUSE SYSTEM 05/27/2024 11:2 4 AM EDT 06/01/2024 8:36 AM EDT Unknown ECG ORDERABLES MUSE SYSTEM * XR Chest PA & Lateral (Generic) (03/12/2024 1:42 PM EDT) WORKSTATION ID [id number] [facility] Anatomical Region Laterality Modality Chest N/A Digital [...] have questions please contact the health plant care worker that requested your imaging first. ? Narrative 03/13/2024 8:28 AM EDT EXAMINATION: XR CHEST PA AND LATERAL (GENERIC) CLINICAL HISTORY: s/p cabg eval effusions I25.10, Atherosclerotic heart disease of [place] coronary artery without angina pectoris TECHNIQUE: PA [...] eval effusions I25.10, Atherosclerotic heart disease of [place] coronary artery withoutangina pectoris TECHNIQUE: PA and [...] who have questions please contactthe health plant care worker that requested your imaging first. [...] Status decision made by: Patient Care Teams Boat Oar Maker Relationship Specialty Start Date End Date Vanessa Christian, MAURI [address] [place] [address] PCP - General Family Medicine 05/27/24
--- OUTSIDE RECORDS SUMMARY | 2024-06-03 08:13 | XMS_ITS | Referral Summary ---
Author Organization [facility] Address [address] [place] [address] Care Team Providers Care Deputy Coroner Investigator Name Role Phone Filidayna Vanessa Sherman NP Primary Care Provider [phone] Social History Tobacco Use Types Packs/Day Years Used Date Smoking Tobacco: Never Assessed Sex and Gender Information Value Date Recorded Sex Assigned at Not on file Gender Identity Not on file Sexual Orientation Not on file Plan of Treatment Not on file Care Teams Deputy Coroner Investigator Relationship Specialty Start Date End Date Vanessa Christian NP [address] [place] [address] PCP - General Family Medicine - Primary Care 10/07/23
--- OUTSIDE RECORDS SUMMARY | 2024-06-03 08:14 | XMS_ITS | Encounter Summary ---
Author Organization [facility] Address [facility] [place] [address] Care Team Providers Care Contracts Intern Name Role Phone Vanessa Christian MAURI Primary Care Provider Encounter Details Date Type Department Care Team (Latest Contact Info) Description 03/12/2024 Travel Social History Tobacco Use Types Packs/Day Years Used Date Smoking Tobacco: Former Cigarettes Smokeless Tobacco: Never Comments:Quit 15 + years ago Alcohol Use Standard Drinks/Week Comments Yes 0 (1 standard drink = 0.6 oz pur e alcohol) rare [facility] Utilities Answer Date Recorded In [...] PM EST Office Visit Cardiology at [address] [phone] Neftali Ernandez MD [facility] [place] [address] documented as of this encounter Visit Diagnoses Not on filedocumented in this encounter Care Teams Contracts Intern Relationship Specialty Start Date End Date Vanessa Christian APRN PCP - General Family Medicine 10/21/23 05/26/24 documented as of this encounter
--- OUTSIDE RECORDS SUMMARY | 2024-06-03 08:14 | XMS_ITS | Encounter Summary ---
Author Organization [facility] Address [facility] [place] [address] Care Team Providers Care Credit Resolution Representative Name Role Phone Vanessa Christian MAURI Primary Care Provider [phone] Encounter Details Date Type Department Care Team (Latest Contact Info) Description 05/20/2024 Travel Social History Tobacco Use Types Packs/Day Years Used Date Smoking Tobacco: Former Cigarettes Smokeless Tobacco: Never Comments:Quit 15 + years ago Alcohol Use Standard Drinks/Week Comments Yes 0 (1 standard drink = 0.6 oz pur e alcohol) rare [facility] Utilities Answer Date Recorded In the past [...] 3:00 PM EST Office Visit Cardiology at [address] [phone] Neftali Ernandez MD [facility] [address] documented as of this encounter Visit Diagnoses Not on filedocumented in this encounter Care Teams Credit Resolution Representative Relationship Specialty Start Date End Date Vanessa Christian APRN PCP - General Family Medicine 10/21/23 05/26/24 documented as of this encounter
--- OUTSIDE RECORDS SUMMARY | 2024-06-03 08:14 | XMS_ITS | Encounter Summary ---
Author Organization Formerly [facility], [facility] Address [facility] [place] [address] Care Team Providers Care Undertaker Helper Name Role Phone Gino Vanessa Lane DOTSON Primary Care Provider [phone] Encounter Details Date Type Department Care Team (Late st Contact Info) Description 02/24/2024 Orders Only Cardiac Surgery [facility] [place] [phone] Trudi Lester APRN [facility] [place] [address] Social History Tobacco Use Types Packs/Day Years Used Date Smoking Tobacco: Former Cigarettes Smokeless Tobacco: Never Comments:Quit 15 + years ago Alcohol Use Standard Drinks/Week Comments Yes 0 (1 standard drink = 0.6 oz pur e alcohol) rare [facility] Utilities Answer Date Recorded In the past 12 months has e [employer], gas, oil, or water [employer] threatened to shut off services in your [...] 3:00 PM EST Office Visit Cardiology at [address] [place] [address] Neftali Ernandez MD [facility] [place] [address] documented as of this encounter Visit Diagnoses Not on filedocumented in this encounter Care Teams Undertaker Helper Relationship Specialty Start Date End Date Vanessa Christian APRN PCP - General Family Medicine 10/21/23 05/26/24 documented as of this encounter
--- OUTSIDE RECORDS SUMMARY | 2024-06-03 08:14 | XMS_ITS | Encounter Summary ---
Author Organization [facility] Address [facility] [place] [address] Care Team Providers Care Scheduler Maintenance Name Role Phone Vanessa Christian Lane DOTSON Primary Care Provider [phone] Reason for Visit * Reason Comments Coronary Artery Disease Aortic Stenosis Encounter Details Date Type Department Care Team (Latest Contact Info) Description 05/27/2024 11:00 AM EDT Office Visit Cardiology at [address] [place] [phone] Neftali Ernandez MD [facility] [place] [address] ASCVD (arteriosclerotic cardiovascular disease); Nonrheumatic aortic valve stenosis Social History Tobacco Use Types Packs/Day Years Used Date Smoking Tobacco: Former Cigarettes Smokeless Tobacco: Never Comments:Quit 15 + years ago Alcohol Use Standard Drinks/Week Comments Yes 0 (1 standard drink = 0.6 oz pur e alcohol) rare [facility] Utilities Answer Date Recorded In the past 12 months has e [employer], gas, oil, or water [employer] threatened to shut off services in your [...] PM EST Office Visit Cardiology at [address] [address] Neftlai Ernandez MD [facility] [place] [place] [address] documented as of this encounter Visit Diagnoses Diagnosis ASCVD (arteriosclerotic cardiovascular disease) Unspecified cardiovascular disease Nonrheumatic aortic valve stenosis Aortic valve disorders documented in this encounter Care Teams Scheduler Maintenance Relationship Specialty Start Date End Date Vanessa Christian APRN [address] [place] [address] PCP - General Family Medicine 05/27/24 documented as of this encounter
--- OUTSIDE RECORDS SUMMARY | 2024-06-03 08:14 | XMS_ITS | Encounter Summary ---
Author Organization [facility] Address [facility] [place] [address] Care Team Providers Care Dope Mixer Name Role Phone Vanessa Christian MAURI Primary Care Provider [phone] Encounter Details Date Type Department Care Team (Late st Contact Info) Description 03/12/2024 2:40 PM EDT Office Visit [place] [phone] Zak Farmer MD [facility] CARDIOTHORACIC [place] [address] Coronary artery disease, unspecified vessel or lesion type, unspecified whether angina present, unspecified whether [place] or transplanted heart Social History Tobacco Use Types Packs/Day Years Used Date Smoking Tobacco: Former Cigarettes Smokeless Tobacco: Never Comments:Quit 15 + years ago Alcohol Use Standard Drinks/Week Comments Yes 0 (1 standard drink = 0.6 oz pur e alcohol) rare [facility] Utilities Answer Date Recorded In the past 12 months has e [employer], gas, oil, or water [employer] threatened to shut off services in your [...] 2:40 PM EDT To: MD Vanessa Coles, MANAGING [employer] [place] Re; Karlos Santa ( 1960) We had [...] office. Best personal regards, Zak Farmer MD [phone] documented in this encounter Plan of Treatment Upcoming Encounters Date Type Department Care Team (Late st Contact Info) Description 11/30/2024 3:00 PM EST Office Visit Cardiology at [address] [place] [address] Neftali Ernandez MD [facility] [place] [address] documented as of this encounter Procedures Procedure [...] (Bezet) 401 ms MUSE SYSTEM Calculated P [place] -12 degrees MUSE SYSTEM Calculated R [place] 24 degrees MUSE SYSTEM Calculated T [place] 74 degrees MUSE SYSTEM INTERPRETATION Sinus bradycardia T wave abnormality, consider anterior ischemia Abnormal ECG When compared with ECG of 17-FEB-2024 13:24, [place] interval has decreased T wave inversion now evident in Anterior leads Confirmed by Paul Guzman ([id number]) on 03/15/2024 8:36:23 AM MUSE SYSTEM 03/12/2024 2:35 PM EDT 03/15/2024 8:36 AM EDT Zak Farmer MD ECG ORDERABLES MUSE SYSTEM documented in this encounter Visit Diagnoses Diagnosis Coronary artery disease, unspecified vessel or lesion type, unspecified whether angina present, unspecified whether [place] or transplanted heart documented in this encounter Care Teams Dope Mixer Relationship Specialty Start Date End Date Vanessa Christian APRN PCP - General Family Medicine 10/21/23 05/26/24 documented as of this encounter
--- OUTSIDE RECORDS SUMMARY | 2024-06-03 08:14 | XMS_ITS | Encounter Summary ---
Author Organization [facility] Address [facility] [place] [address] Care Team Providers Care Environmental Emergencies Assistant Name Role Phone Vanessa Christian MAURI Primary Care Provider [phone] Encounter Details Date Type Department Care Team (Latest Contact Info) Description 05/27/2024 Travel Social History Tobacco Use Types Packs/Day Years Used Date Smoking Tobacco: Former Cigarettes Smokeless Tobacco: Never Comments:Quit 15 + years ago Alcohol Use Standard Drinks/Week Comments Yes 0 (1 standard drink = 0.6 oz pur e alcohol) rare [facility] Utilities Answer Date Recorded In [...] 3:00 PM EST Office Visit Cardiology at [address] [address] Neftali Ernandez MD [facility] [place] [address] documented as of this encounter Visit Diagnoses Not on filedocumented in this encounter Care Teams Environmental Emergencies Assistant Relationship Specialty Start Date End Date Vanessa Christian APRN [address] [place] [address] PCP - General Family Medicine 05/27/24 documented as of this encounter
--- OUTSIDE RECORDS SUMMARY | 2024-06-03 08:14 | XMS_ITS | Encounter Summary ---
Author Organization [facility] Address [facility] [place] [address] Care Team Providers Care Soil Analyst Name Role Phone Vanessa Christian MAURI Primary Care Provider [phone] Encounter Details Date Type Department Care Team (Latest Contact Info) Description 03/12/2024 1:30 PM EDT - 03/12/2024 11:59 PM EDT Hospital Encounter XRay at [address] [place] [address] Coronary artery disease, unspecified vessel or lesion type, unspecified whether angina present, unspecified whether [place] or transplanted heart Discharge Disposition: Home Social History Tobacco Use Types Packs/Day Years Used Date Smoking Tobacco: Former Cigarettes Smokeless Tobacco: Never Comments:Quit 15 + years ago Alcohol Use Standard Drinks/Week Comments Yes 0 (1 standard drink = 0.6 oz pur e alcohol) rare [facility] Utilities Answer Date Recorded In the past 12 months has e [employer], gas, oil, or water [employer] threatened to shut off services in your [...] 3:00 PM EST Office Visit Cardiology at [address] [place] [address] Neftali Ernandez MD [facility] [place] [address] documented as of this encounter Procedures Procedure Name Priority Date/Time Associated Diagnosis Comments XR CHEST PA AND LATERAL Routine 03/12/2024 1:42 PM EDT Coronary artery disease, unspecified vessel or lesion type, unspecified whether angina present, unspecified whether [place] or transplanted heart documented in this encounter Results * XR Chest PA & Lateral (Generic) (03/12/2024 1:42 PM EDT) WORKSTATION ID [id number] RAD Anatomical Region Laterality Modality Chest N/A [...] eval effusions I25.10, Atherosclerotic heart disease of [place] coronary artery without angina pectoris TECHNIQUE: PA [...] eval effusions I25.10, Atherosclerotic heart disease of [place] coronary artery withoutangina pectoris TECHNIQUE: PA and [...] type, unspecified whether angina present, unspecified whether [place] or transplanted heart documented in this encounter Care Teams Soil Analyst Relationship Specialty Start Date End Date Vanessa Christian, MAURI PCP - General Family Medicine 10/21/23 05/26/24 documented as of this encounter
--- OUTSIDE RECORDS SUMMARY | 2024-06-03 08:15 | XMS_ITS | Encounter Summary ---
Author Organization [facility] [place] [address] Care Team Providers Care Dental Scheduler Name Role Phone Vanessa Christian MAURI Primary Care Provider [phone] Reason for Visit * Auth/Cert (Routine) Specialty [...] W RHC (WRVU 5.9) Rima Dickinson MD [facility] [place] [address] [facility] Referral ID Status Reason Start Date Expiration Date Visits Re quested Visits Authorized [id number] 1 1 Encounter Details Date Type Department Care Team (Latest Contact Info) Description 02/03/2024 8:06 AM EDT - 02/03/2024 2:54 PM EDT Hospital Encounter [place] [address] Rima Dickinson MD [facility] [place] [address] Screening for cardiovascular condition; Aortic valve stenosis, [...] lbs Follow-up Visits Follow up with your change management in 2-4 weeks Access Site 'Black and Blue' and tenderness is expected during the first week Call if you noted a mass (lump) greater than the size of a ellis Call Office with any Questions and if you have any of the following Clarence Lane M.D Interventional Card Cleaner Manager Wholesale #: [phone] * Attachments The following attachments cannot be sent through Care Everywhere. * CAD (Coronary Artery Disease): General Info (Cameroonian) * Coronary Angiogram: Post-op (Cameroonian) documented in this encounter Medications at Time [...] Lane MD - 02/03/2024 11:48 AM EDT [facility] Interventional Cardiology Adult Pre-Procedure H&P Update: Cardiac Catheterization Karlos Anthony [id number] 1960 Chief Complaint: Aortic stenosis HPI: Mr. [...] is inthe chart Clarence Lane MD Interventional Card Cleaner 02/03/24 11:48 AM documented in this encounter Miscellaneous Notes * Brief Op Note - Clarence Lane MD - 02/03/2024 12:51 PM EDT Preliminary Cardiac Catheterization Procedure Note: Patient Name: Karlos Anthony : [id number] MR#: [id number] Case Date: 02/03/2024 Manager Wholesale: Surgeon(s) and Role: * Saira Lua MD [...] 3:00 PM EST Office Visit Cardiology at [address] [address] Neftali Ernandez MD [facility] [place] [address] Scheduled Orders Name Type Priority Associated Diagnoses [...] ? Procedure Date: 02/03/2024 ? A #: [id number] ? Primary Physician: Saira Lua ? Case #: [id number] ? File Name: [id number] ? Catheterization Order Number: [id number] ? [facility] ? Final Report [place], [place] ? Patient Name: ? Karlos Patenaude ? ID#: ?[id number] ? : ?1960 ? Procedure Date: ? [...] Karlos Anthony Procedure Date: 02/03/2024 A #: [id number] Primary Physician: Saira Lua Case #: [id number] File Name: [id number] Catheterization Order Number: [id number] [facility] FinalReport [place], [place] Patient Name: Karlos Anthony ID#:[id number] :1960 Procedure Date: February 03, 2024 Case [...] designated as ASA Class III. The [facility] clinical frailty scale is 3: Managing [...] (Bezet) 372 ms MUSE SYSTEM Calculated P [place] 59 degrees MUSE SYSTEM Calculated R [place] 34 degrees MUSE SYSTEM Calculated T [place] 63 degrees MUSE SYSTEM INTERPRETATION Sinus bradycardia [...] MD) documented in this encounter Care Teams Dental Scheduler Relationship Specialty Start Date End Date Vanessa Christian APRN PCP - General Family Medicine 10/21/23 05/26/24 documented as of this encounter
--- OUTSIDE RECORDS SUMMARY | 2024-06-03 08:15 | XMS_ITS | Encounter Summary ---
Author Organization [facility] Address [facility] [place] [address] Care Team Providers Care Transit Operator Name Role Phone Vanessa Christian MAURI Primary Care Provider [phone] Encounter Details Date Type Department Care Team (Late st Contact Info) Description 02/14/2024 Orders [place] [phone] Zak Farmer MD [facility] CARDIOTHORACIC [place] [address] Coronary artery disease, unspecified vessel or lesion type, unspecified whether angina present, unspecified whether [place] or transplanted heart (Primary Dx) Social History [...] 3:00 PM EST Office Visit Cardiology at [address] [place] [phone] Neftali Ernandez MD [facility] CARDIOLOGY [place], [place] [phone] documented as of this encounter Results * EKG 12 Lead (03/12/2024 2:35 PM EDT) Ventricular rate 59 BPM MUSE SYSTEM Atrial Rate 59 BPM MUSE SYSTEM P-R Interval 190 ms MUSE SYSTEM QRS Duration 92 ms MUSE SYSTEM Q-T Interval 406 ms MUSE SYSTEM QTC Calculated (Bezet) 401 ms MUSE SYSTEM Calculated P [place] -12 degrees MUSE SYSTEM Calculated R [place] 24 degrees MUSE SYSTEM Calculated T [place] 74 degrees MUSE SYSTEM INTERPRETATION Sinus bradycardia T wave abnormality, consider anterior ischemia Abnormal ECG When compared with ECG of 17-FEB-2024 13:24, [place] interval has decreased T wave inversion now evident in Anterior leads Confirmed by Paul Guzman ([id number]) on 03/15/2024 8:36:23 AM MUSE SYSTEM 03/12/2024 2:35 PM EDT 03/15/2024 8:36 AM EDT Zak Farmer MD ECG ORDERABLES MUSE SYSTEM * XR Chest PA & Lateral (Generic) (03/12/2024 1:42 PM EDT) WORKSTATION ID [id number] RAD Anatomical Region Laterality Modality Chest N/A [...] your imaging first. ? Electronically signed by: Augei Sanchez MD, [facility] ([phone]), at 03/13/2024 8:28 AM Narrative 03/13/2024 8:28 AM EDT EXAMINATION: XR CHEST PA AND LATERAL (GENERIC) CLINICAL HISTORY: s/p cabg eval effusions I25.10, Atherosclerotic heart disease of [place] coronary artery without angina pectoris TECHNIQUE: PA [...] eval effusions I25.10, Atherosclerotic heart disease of [place] coronary artery withoutangina pectoris TECHNIQUE: PA and [...] health care that requested your imaging first. Electronically signed by: Augie Sanchez MD, [facility]([phone]), at 03/13/2024 8:28 AM Zak Farmer MD IMG DX ORDERABLES documented in this encounter Visit Diagnoses Diagnosis Coronary artery disease, unspecified vessel or lesion type, unspecified whether angina present, unspecified whether [place] or transplanted heart- Primary Coronary artery disease, unspecified vessel or lesion type, unspecified whether angina present, unspecified whether [place] or transplanted heart documented in this encounter Care Teams Transit Operator Relationship Specialty Start Date End Date Vanessa Christian APRN PCP - General Family Medicine 10/21/23 05/26/24 documented as of this encounter
--- OUTSIDE RECORDS SUMMARY | 2024-06-03 08:15 | XMS_ITS | Encounter Summary ---
Author Organization [facility] [place] [address] Care Team Providers Care Brazer Crawler Torch Name Role Phone Vanessa Christian MAURI Primary Care Provider [phone] Reason for Visit * Auth/Cert (Routine) Specialty [...] ARTERIAL GRAFT (WRVU 7.93) Zak Farmer MD [facility] C[place]IOTHORAC[place] [address] [facility] Referral ID Status Reason Start Date Expiration Date Visits Re quested Visits Authorized [id number] 1 1 Encounter Details Date Type Department Care Team (Late st Contact Info) Description 02/17/2024 7:35 AM EDT Anesthesia Event Main Operating Room [facility] [place] [phone] Roman York MD [facility] [place] [address] Anesthesia Record Procedure Summary Procedure Name Responsible [...] by Sadiq Woo RN PIV 02/17/24; 0715; [id number] catheter system; 18 gauge; cephalic vein (lateral [...] th e electric, gas, oil, or water [employer] threatened to shut off services in your [...] Procedure Summary Date: 02/17/24 Room / Location: [facility] OR [address] [place] [address] MAIN OR Anesthesia Start: 734 Anesthesia Stop: [...] shown include unfiled device data. Patient Location: [facility] Level of Consciousness: Sedated (Pharmacologic/Intentional) Pain [...] 08/14/2023 ??? Nevus of face 09/26/2023 Right druze No past surgical history on file. Social [...] PM EST Office Visit Cardiology at [address] [place] [address] Neftali Ernandez MD [facility] [place] [address] documented as of this encounter [...] mg documented in this encounter Care Teams Brazer Crawler Torch Relationship Specialty Start Date End Date Vanessa Christian APRN PCP - General Family Medicine 10/21/23 05/26/24 documented as of this encounter
--- OUTSIDE RECORDS SUMMARY | 2024-06-03 08:15 | XMS_ITS | Encounter Summary ---
[place] [address] Care Team Providers Care Corrections Identification Technician Name Role Phone Vanessa Christian Lane DOTSON Primary Care Provider Reason for Referral * Diagnostic Test (Routine) - Closed Specialty Diagnoses / Procedures Referred By Contac t Referred To Contact Radiology Diagnoses Nonrheumatic aortic valve stenosis Procedures CT Chest wo Contrast (Generic) Louisa Cho PA [facility] DR [place]IOTH[place] [address] [facility] [place] [address] Referral ID Status Reason Start Date Expiration Date V isits Requested Visits Authorized [id number] Closed Specialty Service Requested 01/10/2024 07/11/2025 1 1 Reason for Visit * Diagnostic Test (Routine) - Closed Specialty Diagnoses / Procedures Referred By Contac t Referred To Contact Radiology Diagnoses Nonrheumatic aortic valve stenosis Procedures CT Chest wo Contrast (Generic) Louisa Cho PA [facility] [place]OTH[place]AC[place] [address] [facility] [place] [address] Referral ID Status Reason Start Date Expiration Date V isits Requested Visits Authorized [id number] Closed Specialty Service Requested 01/10/2024 07/11/2025 1 1 Encounter Details Date Type Department Care Team (Latest Contact Info) Description 02/03/2024 7:36 AM EDT - 02/03/2024 8:05 AM EDT Hospital Encounter CT Scan at [facility] [address] Zak Farmer MD [facility] [place] [address] Nonrheumatic aortic valve stenosis Discharge Disposition: Home Social History Tobacco Use Types Packs/Day Years Used Date Smoking Tobacco: Former Cigarettes Smokeless Tobacco: Never Comments:Quit 15 + years ago Alcohol Use Standard Drinks/Week Comments Yes 0 (1 standard drink = 0.6 oz pur e alcohol) rare [facility] Inpatient Questions Answer Date Recorded Does [...] PM EST Office Visit Cardiology at [address] [place] [address] Neftali Ernandez MD [facility] [place] [address] documented as of this encounter Procedures Procedure Name Priority Date/Time Associated Diagnosis Comments CT CHEST WO CONTRAST (GENERIC) Routine 02/03/2024 7:44 AM EDT Nonrheumatic aortic valve stenosis documented in this encounter Results * CT Chest wo Contrast (Generic) (02/03/2024 7:44 AM EDT) Smart Wire Grid WORKSTATION ID [id number] DH RAD Anatomical Region Laterality Modality Chest [...] questions please contact the health medicare sales executive that requested your imaging first. ? Electronically signed by: Rogerio Wright MD, [facility] ([phone]), at 02/03/2024 10:00 AM Narrative 02/03/2024 10:00 [...] nodule along the minor fissure (series [id number]) and a 8 mm right lower lobe [...] have questions please contactthe health medicare sales executive that requested your imaging first. Electronically signed by: Rogerio Wright MD, [facility]([phone]), at 02/03/2024 10:00 AM Zak Farmer MD IMG CT ORDERABLES documented in this encounter Visit Diagnoses Diagnosis Nonrheumatic aortic valve stenosis Aortic valve disorders documented in this encounter Care Teams Corrections Identification Technician Relationship Specialty Start Date End Date Vanessa Christian APRN PCP - General Family Medicine 10/21/23 05/26/24 documented as of this encounter
--- OUTSIDE RECORDS SUMMARY | 2024-06-03 08:15 | XMS_ITS | Encounter Summary ---
Author Organization [facility] [place] [address] Care Team Providers Care Kettle Hand Name Role Phone Vaenssa Christian MAURI Primary Care Provider [phone] Encounter Details Date Type Department Care Team (Late st Contact Info) Description 01/10/2024 [place] [phone] Lawson Napoles PA [facility] [place] [address] Screening for cardiovascular condition; Aortic valve stenosis, [...] PM EST Office Visit Cardiology at [address] [place] [phone] Neftali Ernandez MD [facility] [place] [address] documented as of this encounter Visit Diagnoses Diagnosis Screening for cardiovascular condition Screening for other and unspecified cardiovascular conditions Aortic valve stenosis, etiology of cardiac valve disease unspecified documented in this encounter Care Teams Kettle Hand Relationship Specialty Start Date End Date Vanessa Christian APRN PCP - General Family Medicine 10/21/23 05/26/24 documented as of this encounter
--- OUTSIDE RECORDS SUMMARY | 2024-06-03 08:15 | XMS_ITS | Encounter Summary ---
Author Organization [facility] [place] [address] Care Team Providers Care Lip Of Shank Cutter Name Role Phone Vanessa Christian MAURI Primary Care Provider [phone] Encounter Details Date Type Department Care Team (Latest Contact Info) Description 01/09/2024 3:00 PM EDT [place] [phone] Nonrheumatic aortic valve stenosis Social History Tobacco Use Types Packs/Day Years Used Date Smoking Tobacco: Former Cigarettes Smokeless Tobacco: Never Comments:Quit 15 + years ago Alcohol Use Standard Drinks/Week Comments Yes 0 (1 standard drink = 0.6 oz pur e alcohol) rare [facility] Inpatient Questions Answer Date [...] 3:00 PM EST Office Visit Cardiology at [address] [phone] Neftali Ernandez MD [facility] [place] [address] documented as of this encounter Procedures Procedure Name Priority Date/Time Associated Diagnosis Comments ABORH RECHECK STATUS Routine 01/09/2024 2:58 PM EDT HEMOGRAM Routine 01/09/2024 2:58 PM EDT Nonrheumatic aortic valve stenosis DIFFERENTIAL, AUTOMATED Routine 01/09/2024 2:58 PM EDT Nonrheumatic aortic valve stenosis TYPE AND SCREEN, SDP (FUTURE SURGERY, [facility] ONLY) Routine 01/09/2024 2:58 [...] PM EDT) ABORH Recheck Order Order Placed [facility] ABORH Type Recheck Completed [facility] Blood 01/09/2024 2:58 PM EDT 01/09/2024 3:08 PM EDT Narrative Resulting Agency Comment Spec In Lab Zak Farmer MD BLOOD BANK LAB CECILIO ALEMAN [facility] [place] [address] * Differential, Automated (01/09/2024 2:58 PM EDT) Neutrophil % 70.5 % [facility] Neutrophil Absolute 4.34 1.70 - 6.10 x10(3)/[facility] Lymph % 18.9 % [facility] Lymphocytes Abs 1.2 0.9 - 3.2 x10(3)/[facility] Monocyte % 8.0 % [facility] Monocyte Abs 0.5 0.3 - 0.9 x10(3)/[facility] Eos % 1.6 % [facility] Eosinophils Abs 0.1 0.0 - 0.4 x10(3)/[facility] Basophil % 0.5 % [facility] Baso Absolute 0.0 0.0 - 0.1 x10(3)/[facility] Immature Gran % 0.50 % [facility] Comment: Immature granulocytes(IG's)percentage and absolute count will include metamyelocytes, myelocytes, and promyelocytes. Blood smears from CBCs yielding IG's will be scanned manually for concordance. If this scan disagrees with the automated IG or if promyelocytes are noted, a manual differential will be performed. Immature Gran Absolute 0.03 0.00 - 0.04 x10(3)/[facility] Blood 01/09/2024 2:58 PM EDT 01/09/2024 3:03 PM EDT Narrative Resulting Agency Comment Spec In Lab Zak Farmer MD HEMATOLOGY ORDERABL ES [facility] [place] [address] * Hemogram (01/09/2024 2:58 PM EDT) White Blood Cell 6.2 4.0 - 9.5 x10(3)/[facility] Red Blood Cell 5.53 4.58 - 5.54 x10(6)/[facility] Hemoglobin 16.1 13.7 - 16.5 g/dL [facility] Hematocrit 46.9 40.5 - 48.5 % [facility] Mean Cell Volume 84.8 82.9 - 93.1 fL [facility] Mean Cell Hemoglobin 29.1 27.5 - 32.1 pg [facility] Mean Cell Hemoglobin Concentration 34.3 32.0 - 35.7 g/dL [facility] Platelet 187 145 - 357 x10(3)/[facility] RDW Standard Deviation 39.2 36.0 - 45.0 fL [facility] RDW coefficient of variation 12.6 11.4 - 13.8 % [facility] Mean Platelet Volume 9.5 7.6 - 12.9 fL [facility] NRBC% auto 0.0 % [facility] NRBC Absolute 0.000 0.000 - 0.000 x10(3)/[facility] Blood 01/09/2024 2:58 PM EDT 01/09/2024 3:03 PM EDT Narrative Resulting Agency Comment Spec In Lab Zak Farmer MD HEMATOLOGY ORDERABL ES [facility] [place] [address] * Basic Metabolic Panel (non-fasting) (01/09/2024 2:58 PM EDT) Glucose 102 65 - 199 mg/dL [facility] Comment:Diabetes: >=200 mg/d L plus symptoms Blood Urea Nitrogen 15 10 - 20 mg/dL [facility] Creatinine 0.94 0.80 - 1.50 mg/dL [facility] Sodium 137 135 - 145 mmol/L [facility] Potassium 4.5 3.5 - 5.0 mmol/L [facility] Comment: Please note: ??Patients with WBC >100,000 may have falsely elevated Potassium levels. ??For accurate Potassium quantification in these patients send serum separator tube (gold top) for subsequent determinations. ??Contact the Clinical Chemistry Laboratory if there are any questions. Chloride 103 98 - 107 mmol/L [facility] Carbon Dioxide 27 22 - 31 mmol/L [facility] Anion Gap 7 5 - 15 mmol/L [facility] Calcium 9.5 8.5 - 10.5 mg/dL [facility] Est Glomerular Filtration Rate 91 >=60 mL/min/1. 73 m?? [facility] CHEMISTRY ORDERABLE S [facility] [place] [address] * Hepatic Function Panel (01/09/2024 2:58 PM EDT) Protein, Total 6.7 6.1 - 8.0 g/dL [facility] Albumin 4.5 3.2 - 5.2 g/dL [facility] Aspartate Aminotransferase 21 0 - 39 unit/L [facility] Alanine Aminotransferase 21 0 - 55 unit/L [facility] Alkaline Phosphatase 81 40 - 130 unit/L [facility] Bilirubin, Total 0.7 0.2 - 1.3 mg/dL [facility] Bilirubin, Direct 0.2 0.0 - 0.3 mg/dL [facility] Blood 01/09/2024 2:58 PM EDT 01/09/2024 3:03 PM EDT Narrative Resulting Agency Comment Spec In Lab Zak Farmer MD CHEMISTRY ORDERABLE S Performing Organization Address [facility] Co de Phone Number [facility] [place] [address] * Prothrombin Time (01/09/2024 2:58 PM EDT) Prothrombin Time 10.6 9.4 - 12.5 sec [facility] International Normalization Ratio 0.9 [facility] Comment: An INR <2.0 indicates [...] ORDERABL ES Performing Organization Address [facility] Co de Phone Number [facility] [place] [address] * Type and Screen Future Surgery, [facility] ONLY) (01/09/2024 2:58 PM EDT) ABORH Type O NEGATIVE [facility] Patient BB History Not Found [facility] Expires at [id number] on: 02-20-2024 [facility] Ab Screen Interp Negative [facility] Blood 01/09/2024 2:58 PM EDT 01/09/2024 2:58 PM EDT Narrative Resulting Agency Comment Spec In Lab Zak Farmer MD BLOOD BANK LAB ORDE RABLES Performing Organization Address City/[facility]/[place] [address] documented in this encounter Visit Diagnoses Diagnosis Nonrheumatic aortic valve stenosis Aortic valve disorders documented in this encounter Care Teams Lip Of Shank Cutter Relationship Specialty Start Date End Date Vanessa Christian APRN PCP - General Family Medicine 10/21/23 05/26/24 documented as of this encounter
--- OUTSIDE RECORDS SUMMARY | 2024-06-03 08:15 | XMS_ITS | Encounter Summary ---
Author Organization [facility] Address [facility] [place] [address] Care Team Providers Care Steel Die Printer Name Role Phone Vanessa Christian APRN Primary Care Provider [phone] Encounter Details Date Type Department Care Team [...] PM EST Office Visit Cardiology at [address] [place] [address] Netfali Ernandez MD [facility] [place] [address] documented as of this encounter Visit Diagnoses Not on filedocumented in this encounter Care Teams Steel Die Printer Relationship Specialty Start Date End Date Vanessa Christian APRN PCP - General Family Medicine 10/21/23 05/26/24 documented as of this encounter
--- OUTSIDE RECORDS SUMMARY | 2024-06-03 08:15 | XMS_ITS | Encounter Summary ---
[place] [address] Care Team Providers Care Flight Inspector Name Role Phone Aparna Jordan MAURI Primary Care Provider [phone] Reason for Referral * Diagnostic Test (Routine) - New Request Specialty Diagnoses / Procedures Referred By Contac t Referred To Contact Cardiology Diagnoses S/P AVR Procedures Echocardiogram Transthoracic Neftali Menon PA [facility] [place] [address] [facility] [place] [address] Referral ID Status Reason Start Date Expiration Date Visits Requested Visits Authorized [id number] New Request Specialty Service Requested 02/24/2024 02/23/2025 1 1 * Consultation (Routine) - Authorized Specialty Diagnoses / Procedures Referred By Contac t Referred To Contact Cardiology Diagnoses S/P AVR Hayder Graham MD [facility] [place] [address] Cardiac Rehab, [facility] [address] [place] [address] [place] [address] Referral ID Status Reason Start Date Expiration Date Visits Requested Visits Authorized [id number] Authorized Consult, Test & Treat 02/24/2024 08/22/2024 36 36 * Home Health Care (Routine) - Authorized Specialty Diagnoses / Procedures Referred By Sixto mendoza Referred To Contact Diagnoses S/P AVR Hayder Graham MD [facility] [place] [address] Referral ID Status Reason Start Date Expiration Date Visits Requested Visits Authorized [id number] Authorized Consult, Test & Treat 02/24/2024 08/22/2024 [...] ARTERIAL GRAFT (WRVU 7.93) Hayder Graham MD [facility] [place] [address] [facility] Referral ID Status Reason Start Date Expiration Date Visits Re quested Visits Authorized [id number] 1 1 Encounter Details Date Type Department Care Team (Latest Contact Info) Description 02/17/2024 5:43 AM EDT - 02/24/2024 11:23 AM EDT Hospital Encounter Heart and Vascular Unit Level 4 [place] [address] Hayder Graham MD [facility] [place] [address] S/P AVR (Primary Dx); Aortic valve stenosis, etiology of cardiac valve disease unspecified Discharge Disposition: Home with VNA Social History Tobacco Use Types Packs/Day Years Used Date Smoking Tobacco: Former Cigarettes Smokeless Tobacco: Never Comments:Quit 15 + years ago Alcohol Use Standard Drinks/Week Comments Yes 0 (1 standard drink = 0.6 oz pur e alcohol) rare [facility] Utilities Answer Date Recorded In [...] Patient Age: 63 y.o. Birthdate: 1960 Language: Yemeni Race: White Ethnicity: Not nor Admit Date: 02/17/2024 Discharge Date: 02/24/24 Attending Physician: Hayder Graham MD Follow-up Recommendations for Providers: Please continue routine management of cardiovascular risk factors including blood pressure, lipids,glucose, etc. Please note any changes to medications. Patient to follow up with PCP, Aparna Jordan APRN, in 1-2 weeks. Patient to follow up with Reliability Specialist, Neftali Ernandez MD , in 2 weeks. Patient to follow up with Cardiac Surgeon, Dr. Hayder Graham, with a chest x-ray, EKG, and Echo. Inpatient Provider Contact Information: [facility] Section of Cardiac Surgery [facility] [address] FAX [phone] Discharge Diagnoses (Hospital Problems) Primary Diagnoses: /CAD [...] 33.75) performed by Hayder Graham MD at [facility] MAIN OR PRO CABG, ARTERY-VEIN, TWO N/A 02/17/2024 @CABG, TWO VENOUS GRAFTS & ARTERIAL GRAFT (WRVU 7.93) performed by Hayder Graham MD at [facility] MAIN OR PRO ENDOSCOPY W/VIDEO-ASST VEIN HARVEST, CABG Left 02/17/2024 ENDOSCOPIC HARVEST VEIN(S) FOR CABG (WRVU 0.31) performed by Hayder Graham MD at [facility] MAIN OR PRO REPLACEMENT PROSTHETIC AORTIC VALVE OPEN W CARDIOPULMONARY BYPASS HOMOGRF/STENT N/A 02/17/2024 @REPLACE AORTIC VALVE, OPEN, W\CPB, W\PROSTHETIC VALVE (WRVU 41.32) performed by Hayder Graham MD at [facility] MAIN OR Prior To Admission Medications Medications [...] insufficiency. He has glaucoma. He used to [employer] until about 15 years ago. He has undergone prior herniorrhaphy. 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 Major Procedures/Operations: 02/17/24 s/p avr/cabgx3 CABG x 3 JOSE->LAD SVG->dRCA SVG->OM1 EVH from LLE AVR with a 23 mm Inspiris Bioprosthesis Hospital Course: Karlos Garcia was admitted to [facility] on 02/17/2024 via the Same Day [...] Hayder Graham and/or the Cardiac Surgery Physician Commercial Sales Specialist Team may be reached at . Antibiotic [...] Please refer to the card with the [place] Heart Association Guidelines for more information. You [...] Dr. Hayder Graham. You may use a [place] Track or treadmill but avoid any pulling [...] friends, go to a movie, go to hoahaoism, etc. Heavy activities: No hunting, skiing, jogging, [...] should resume a low fat, low cholesterol, [place] Heart Association Diet. Driving: No driving until [...] while being managed by your PCP and/or Reliability Specialist. For future medication refills, please refer to your PCP and/or Reliability Specialist after your discharge from our service. Thank you REMOVE CHEST TUBE SUTURES ON OR AFTER 03/02/24 Home oxygen therapy: N/A Follow up appointments: You should follow up with your PCP, Aparna Jordan APRN, in 1-2 weeks. Our office will schedule an appointment with your Reliability Specialist, Neftali Ernandez MD , in 2 weeks. You have an appointment with your Cardiac Surgeon, Dr. Hayder Graham, 4 weeks with a chest x-ray, EKG, and Echo before your appointment. Cardiac Rehabilitation: Karlos Garcia was seen regarding participation in the outpatient Phase 2Cardiac Rehabilitation at [facility]. The patient agrees to a referral to this program. The referral will be sent at discharge and the patient should be contacted by the Program within 1- 2 weeks from discharge. Future Appointments and Orders Future Orders Complete By Expires Echocardiogram Transthoracic [30021 CPT(R)] 03/26/2024 09/25/2024 Process Instructions: Scheduling Instructions: Questions: Where will study be performed?: [facility] Clinics Does the patient have Congenital Heart Disease?: Does patient require sedation?: Sedation rationale: XR Chest PA & Lateral (Generic) [51460 91867 Custom] 03/26/2024 09/25/2024 Process Instructions: Scheduling Instructions: Questions: Portable exam?: Reason for exam and clinical history: s/p avr/cabg Clinical information / jerome questions for radiologist: Stat read required?: Date of injury if applicable: Requested Time: Where will study be performed?: [facility] Radiology Referral to Cardiac Rehab [MMU938 Custom] As directed Process Instructions: If no progress note charted, please enter Clinical details in comments. Scheduling Instructions: Questions: My question or request is: s/p AVR/CABG. Cardiac rehab at [facility]. Referral to Home Health [REF34 Custom] As directed Process Instructions: If no progress note charted, please enter Clinical details in comments. Scheduling Instructions: Comments: Please evaluate Karlos Garcia for admission to Home Health. [address] Phone Number: Date of : 1960 Inpatient DOCUMENTATION FOR VNA SERVICES (INCLUDING THOSE PATIENTS WITH MEDICARE COVERAGE REQUIRING HOME VNA SERVICES AND/OR HOSPICE SERVICES) PATIENT'S LOCATION: Karlos Garcia [address] [place] [phone] Insecticide Maker's Name: self/family In discussion with the attending physician, it is certified that this patient is under their care and that they, or a Nurse Practitioner, or Physician Commercial Sales Specialist who is working directly with them, hada [...] for services as follows: HOME HEALTH AGENCY: [facility] [address] [place] [address] RN orders: Cardiopulmonary assessment, incisional assessment, assess [...] issues please call the Cardiology Office at [phone] FOR MEDICARE ONLY: (please delete this section [...] APRN [address] / [place] [address] . All VNA agencies which cover the area of patient's residence have been reviewed, either verbally or in writing, and patient/family have chosen the home health care agency noted. Questions: Disciplines Requested: Nursing Physical Therapy Arrangements for VNA/home care: As above. Signed: NEFTALI MENON PA-C [facility] Section of Cardiac Surgery [facility] [address] FAX [phone] Date: 02/24/2024 CC: Aparna Jordan, MAURI Jordan, Aparna [place] APRN [address] [place] [address] documented in this encounter Discharge Instructions * [...] Hayder Graham and/or the Cardiac Surgery Physician Commercial Sales Specialist Team may be reached at . Antibiotic [...] Please refer to the card with the [place] Heart Association Guidelines for more information. You [...] Dr. Hayder Graham. You may use a [place] Track or treadmill but avoid any pulling [...] friends, go to a movie, go to hoahaoism, etc. Heavy activities: No hunting, skiing, jogging, [...] should resume a low fat, low cholesterol, [place] Heart Association Diet. Driving: No driving until [...] while being managed by your PCP and/or Reliability Specialist. For future medication refills, please refer to your PCP and/or Reliability Specialist after your discharge from our service. Thank you REMOVE CHEST TUBE SUTURES ON OR AFTER 03/02/24 Home oxygen therapy: N/A Follow up appointments: You should follow up with your PCP, Aparna Jordan APRN, in 1-2 weeks. Our office will schedule an appointment with your Reliability Specialist, Neftali Ernandez MD , in 2 weeks. You have an appointment with your Cardiac Surgeon, Dr. Hayder Graham, 4 weeks with a chest x-ray, EKG, and Echo before your appointment. Cardiac Rehabilitation: Karlos Garcia was seen regarding participation in the outpatient Phase 2Cardiac Rehabilitation at [facility]. The patient agrees to a referral [...] 0600 and on the weekends please page [phone]. * Eric Barahona PA - 02/23/2024 9:27 [...] 0600 and on the weekends please page [phone]. * Tiffanie Owens - 02/22/2024 2:48 PM [...] d/c for 10 days. 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 * Kelley Hinson, PILOT PLANT OPERATOR - 02/21/2024 10:15 AM EDT Physical Therapy [...] d/c for 10 days. 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 * Kelley Hinson PTA - 02/20/2024 3:32 PM EDT 02/20/24 9178 Evaluation & Treatment Document Type contact Total Minutes, Physical Therapy 0 Comment, Session Not Performed Checked in w/ pt this PM for ongoing PT services, pt politely declined, stating he had been dealing w/ nausea all day, made plan to see him tomorrow morning, will f/u at that time Kelley Hinson PTA Pager: [phone] Physical Therapy Inpatient Rehab Department * Louisa [...] 0600 and on the weekends please page [phone]. * Maris Benavides, PT - 02/19/2024 11:22 [...] d/c for 10 days. 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 Precautions/Special Considerations: [...] outlined inthis evaluation. MARIS BENAVIDES, PT Pager: [phone] Physical Therapy Inpatient Rehabilitation Department Time IN / OUT: 6121-0562 Total Time: 38 (eval) minutes; * Antonio [...] 0600 and on the weekends please page [phone]. * Minnie Begum PA - 02/18/2024 8:25 AM EDT Cardiac Surgery Progress Note Karlos aGrcia is a 63 y.o. male with [...] site CDI with SANJANA wrap Tubes/Lines/Drains: RIJ/PAC, [place], Jacky Ctx, L pleural CT, TPW, Delaney [...] 0600 and on the weekends please page [phone]. * Kim Ha RCP - 02/17/2024 2:25 [...] plan since last visit. Hayder Graham MD [phone] Source Note - Hayder Graham MD - [...] insufficiency. He has glaucoma. He used to [employer] until about 15 years ago. He has [...] given written informed consent. Hayder Graham MD [phone] * Hayder Graham MD - 02/17/2024 7:00 [...] given written informed consent. Hayder Graham MD [phone] documented in this encounter Miscellaneous Notes * [...] information for follow-up Home Health & Hospice, [address] [place] [address] Cardiac Rehab, [address] [place] [address] Transportation: family or friend will provide Functional status prior to admission: Independent Home Environment: Others in the home: alone. Current Living Arrangements: home/apartment/condo. Accessibility Concerns:a few steps to enter 1 floor home. Current Functional Ability: Assistive Person and Equipment DME used at home: none DME Needed at Discharge: N/A Patient is insured through: Primary Insurance: [facility] Payor: [facility] / Plan: [facility] PPO / Product Type: *No Product [...] pain managed with scheduled Tylenol. Worked with [employer]. Ambulated in the roque multiple times during [...] anticipated Patient is insured through: Primary Insurance: [employer] Payor: [employer] / Plan: [facility] PPO / Product Type: *No Product type* / Secondary Insurance: N/A Last Physical Therapy Recommendation: home with home health (Str coming to stay for a week or two upon d/c) with to be determined (owns rolling walker, shower seat) Plan for discharge is: Home w/ Services Outpatient Agency/Support Group Needs: Homecare agency Home Health Services: Physical Therapy, Registered Nurse Agency Referrals: [facility]. [address] [place] [address] Transportation: family or friend will provide Barriers to discharge: Discharge planning Plan going forward: Service Care Management will continue to follow and assist with discharge planning and coordination of care as indicated. Anticipated Date of Discharge: 02/22/2024 Rhett Bell RN RN/CM - Cellphone: [phone] Pager: [phone] Covering Service RN/CM * Plan of Care [...] Yang RN - 02/19/2024 10:44 AM EDT [facility] CARDIAC REHABILITATION Karlos Garcia was seen today regarding participation in the outpatient Phase 2 Cardiac Rehabilitation at [facility]. The patient agrees to a referral [...] surrogate would be surrogate decision maker per [place] surrogate decision making law. (Only good for 180 days) Any patient receiving care in [place] must abide by [place] law. The hierarchy for surrogate decision making [...] In the past 12 months has the [employer], gas, oil, or water [employer] threatened to shut off services in your [...] as: [address] [facility] [address] Physical address: [address] [facility], [address] Social & Family Supports: All names listed [...] none noted Health/Prescription Coverage: Primary Insurance: [facility] Payor: [facility] / Plan: [facility] PPO / Product Type: *No Product type* / Secondary Insurance: N/A ; Prescription Coverage: Yes Preferred Pharmacy: [id number] AT [address] [address] Status: Patient is a : No Primary Care Provider confirmed: Aparna Jordan, TRUSS PULLER HELPER [phone] Patient/Caregiver Goals of Treatment: dc to home Potential Needs for Transition of Care: home health care Agency Referrals: I have met with the patient to: discuss discharge planning needs. provide the [facility], Office of Care Management letter from the Centrifugal Screen Tender pertaining to rehab referrals. provide a letter describing our affiliations within the [facility] and educate about their right to choose where referrals are sent. provide a list of Home Health Agencies / Durable Medical Equipment vendors which serve their preferred geographic area. provided patient with [facility] Star Quality Rating handout. They have requested referrals to: [facility] [address] [place] [address] Note routed to a Bridge Worker who will communicate referrals to facilities and [...] Reina Greene RN CM, BSN, CMGT- Ext [phone] * Plan of Care - Binta Trinidad [...] Operative Note Patient Name: Karlos Garcia : [id number] MR#: [id number] Case Date: 02/17/2024 Surgeon: Surgeon(s) and Role: * Hayder Graham MD - Primary * Neftali Menon PA - Physician Commercial Sales Specialist Preoperative diagnosis: CAD Postoperative diagnosis: CAD, intraoperative [...] mL Drains: Mediastinal and Left pleural Disposition: [facility] Condition: doing well without problems Attestation: Case Date: 02/17/2024 I performed this procedure without the involvement of a resident. HAYDER GRAHAM MD 02/17/2024 * Op Note - Hayder Graham MD - 02/17/2024 8:20 AM EDT [facility] Operative Note Patient Name: Karlos Garcia : [id number] MR#: [id number] Case Date: 02/17/2024 Surgeon: Surgeons and Role: * Hayder Graham MD - Primary * Neftali Menon PA - Physician Commercial Sales Specialist Preoperative diagnosis: CAD Postoperative diagnosis: CAD, intraoperative [...] mL Drains: Mediastinal and Left pleural Disposition: [facility] Procedure Description: The patient was brought to [...] 3:00 PM EST Office Visit Cardiology at [address] [place] [address] Neftali Ernandez MD [facility] [place] [address] Scheduled Orders Name Type Priority Associated Diagnoses [...] Aortic Valve Open W Cardiopulmonary Bypass Homogrf/Stent (63226) Yes 02/17/2024 7:28 AM EDT CAD Cabg, Artery-Vein, Two (89239) Yes 02/17/2024 7:28 AM EDT CAD Cabg, Arterial, Single (44984) Yes 02/17/2024 7:28 AM EDT CAD Endoscopy W/Video-Asst Vein [place], Cabg (05883) Yes 02/17/2024 7:28 AM EDT CAD POCT [...] CHEMISTRY ORDERABLE S [facility] [place] [address] * (ABNORMAL) Basic Metabolic Panel (non-fasting) (02/23/2024 [...] MD CHEMISTRY ORDERABLES [facility] [address] * Potassium (02/22/2024 4:30 AM EDT) Potassium [...] CHEMISTRY ORDERABLE S [facility] [address] * (ABNORMAL) Basic Metabolic Panel (non-fasting) (02/21/2024 [...] Carpio MD CHEMISTRY ORDERABLES Performing Organization Address City/[facility]/ZIP Co de Phone Number [facility] [address] * Lactate, whole blood, send to lab ([facility]) (02/21/2024 9:45 AM EDT) [facility] Lactate WB 2.0 0.5 - 2.2 mmol/L [facility] Blood 02/21/2024 9:45 AM EDT 02/21/2024 9:52 AM EDT Narrative Resulting Agency Comment Spec In Lab Hayder Graham MD CHEMISTRY ORDERABLE S Performing Organization Address City/[facility]/ZIP Co de Phone Number [facility] [address] * (ABNORMAL) Hepatic Function Panel (02/21/2024 9:45 AM EDT) [facility] Protein, Total 5.7(L) 6.1 - 8.0 [...] [facility]/ZIP Co de Phone Number [facility] [address] * Lipase (02/21/2024 9:45 AM EDT) Lipase 56 0 - 60 unit/L [facility] Blood 02/21/2024 9:45 AM EDT 02/21/2024 9:52 AM EDT Narrative Resulting Agency Comment Spec In Lab Hayder Graham MD CHEMISTRY ORDERABLE S Performing Organization Address [facility] Co de Phone Number [facility] [address] * Amylase (02/21/2024 9:45 AM EDT) Amylase 69 28 - 100 unit/L [facility] Blood 02/21/2024 9:45 AM EDT 02/21/2024 9:52 AM EDT Narrative Resulting Agency Comment Spec In Lab Hayder Graham MD CHEMISTRY ORDERABLE S Performing Organization Address [facility] Co de Phone Number [facility] [address] * Potassium (02/21/2024 3:08 AM EDT) Potassium [...] CHEMISTRY ORDERABLE S [facility] [address] * XR Chest PA & Lateral (Generic) (02/20/2024 10:19 AM EDT) WORKSTATION ID [id number] RAD Anatomical Region Laterality Modality Chest N/A Digital Radiogra phy Impressions 02/20/2024 1:11 PM EDT Small pleural effusions. No pneumothorax Thank you for letting us participate in the care of this patient. ??If you are a health care provider and have any questions regarding this report, please contact the number below. ??For patients who have questions please contact the health acute care physical therapist that requested your imaging first. ? Electronically signed by: Rogerio Cruz MD, [facility] ??([phone]), at 02/20/2024 1:11 PM Narrative 02/20/2024 1:11 PM EDT EXAMINATION: XR CHEST PA AND LATERAL (GENERIC) CLINICAL HISTORY: s/p AVR/CABGx3 TECHNIQUE: PA and lateral views of the chest COMPARISON: 02/17/2024 FINDINGS: Support devices: Interval removal of Avalon-Kaila catheter, endotracheal tube and mediastinal chest tubes The cardiac silhouette is stable status post median sternotomy, CABG and aortic valve replacement. There are small pleural effusions. No pneumothorax. Procedure Note Rogerio Cruz MD - 02/20/2024 EXAMINATION: XR CHEST PA AND LATERAL (GENERIC) CLINICAL HISTORY: s/p AVR/CABGx3 TECHNIQUE: PA and lateral views of the chest COMPARISON: 02/17/2024 FINDINGS: Support devices: Interval removal of Avalon-Kaila catheter, endotracheal tubeand mediastinal chest tubes The [...] have questions please contactthe health acute care physical therapist that requested your imaging first. Hayder Graham MD IMG DX ORDERABLES * Scan, Peripheral Blood (02/20/2024 4:23 AM EDT) Pathologist [facility] Plat estimate Decreased [facility] RBC Morphology Normal [facility] Blood 02/20/2024 4:23 AM EDT 02/20/2024 4:42 AM EDT Narrative Resulting Agency Comment Spec In Lab Minnie [facility] HEMATOLOGY CECILIO ALEMAN Performing Organization Address City/State/[facility] Co de Phone Number [facility] [address] * (ABNORMAL) Differential, Automated (02/20/2024 4:23 AM EDT) [facility] Neutrophil % 81.7 % [facility] Neutrophil Absolute 10.37(H) 1.70 - 6.10 x10(3)/mc L [facility] Lymph % 7.4 % [facility] Lymphocytes Abs 0.9 0.9 - 3.2 x10(3)/mc L [facility] Monocyte % 9.7 % [facility] Monocyte Abs 1.2(H) 0.3 - 0.9 x10(3)/mc L [facility] Eos % 0.1 % [facility] Eosinophils Abs 0.0 0.0 - 0.4 x10(3)/[facility] Basophil % 0.2 % [facility] Baso Absolute 0.0 0.0 - 0.1 x10(3)/[facility] Immature Gran % 0.90 % [facility] Comment: Immature granulocytes(IG's)percentage and absolute count will include metamyelocytes, myelocytes, and promyelocytes. Blood smears from CBCs yielding IG's will be scanned manually for concordance. If this scan disagrees with the automated IG or if promyelocytes are noted, a manual differential will be performed. Immature Gran Absolute 0.12(H) 0.00 - 0.04 x10(3)/[facility] Blood 02/20/2024 4:23 AM EDT 02/20/2024 4:42 AM EDT Narrative Resulting Agency Comment Spec In Lab Minnie [facility] HEMATOLOGY CECILIO ALEMAN [facility] [place] [address] * (ABNORMAL) Hemogram (02/20/2024 4:23 AM EDT) White Blood Cell 12.7(H) 4.0 - 9.5 x10(3)/[facility] LABORATORY Red Blood Cell 4.26(L) 4.58 - 5.54 x10(6)/[facility] LABORATORY Hemoglobin 12.3(L) 13.7 - 16.5 g/dL [...] [facility] NRBC% auto 0.0 % [facility] NRBC Absolute 0.000 0.000 - 0.000 x10(3)/mc L [facility] Blood 02/20/2024 4:23 AM EDT 02/20/2024 4:42 AM EDT Narrative Resulting Agency Comment Spec In Lab Minnie FRENCH HEMATOLOGY CECILIO ALEMAN [facility] [place] [address] * (ABNORMAL) Basic Metabolic Panel (non-fasting) (02/20/2024 [...] MD CHEMISTRY ORDERABLE S Performing Organization Address [facility] Co de Phone Number [facility] [place] [address] * Potassium (02/19/2024 3:57 AM EDT) [facility] Potassium 4.3 3.5 - 5.0 mmol/L [facility] [...] MD CHEMISTRY ORDERABLE S Performing Organization Address [facility]/ZIP Co de Phone Number [facility] [place] [address] * POCT Glucose (02/18/2024 8:24 AM EDT) Glucose, POC 157 65 - 199 mg/dL [facility] Comment: Supplemental ranges: <140 mg/dL before meals <180 mg/dL all other times of the day Blood 02/18/2024 8:24 AM EDT 02/18/2024 8:24 AM EDT Hayder Graham MD POINT OF CARE TEST ORDERABLES Performing Organization Address City/[facility]/ZIP Co de Phone Number [facility] [place] [address] * Scan, Peripheral Blood (02/18/2024 1:40 AM EDT) [facility] Plat estimate Decreased [facility] RBC Morphology Normal [facility] Blood 02/18/2024 1:40 AM EDT 02/18/2024 1:56 AM EDT Narrative Resulting Agency Comment Spec In Lab Neftali FRENCH HEMATOLOGY ORDER OLE Performing Organization Address City/[facility]/ZIP Co de Phone Number [facility] [place] [address] * (ABNORMAL) Differential, Automated (02/18/2024 1:40 AM EDT) [facility] Neutrophil % 87.1 % [facility] Neutrophil Absolute 15.03(H) 1.70 - 6.10 x10(3)/mc L [facility] Lymph % 3.0 % [facility] Lymphocytes Abs 0.5(L) 0.9 - 3.2 x10(3)/mc L [facility] Monocyte % 9.1 % [facility] Monocyte Abs 1.6(H) 0.3 - 0.9 x10(3)/mc L [facility] Eos % 0.0 % [facility] Eosinophils Abs 0.0 0.0 - 0.4 x10(3)/mc L [facility] Basophil % 0.2 % [facility] Baso Absolute 0.0 0.0 - [...] HEMATOLOGY ORDER OLE [facility] [place] [address] * (ABNORMAL) Hemogram (02/18/2024 1:40 AM EDT) White Blood Cell 17.2(H) 4.0 - 9.5 x10(3)/ L [facility] Red Blood Cell 4.71 4.58 - 5.54 x10(6)/mc L [facility] Hemoglobin 13.7 13.7 - 16.5 g/dL [facility] Hematocrit 39.2(L) 40.5 - 48.5 % [facility] Mean Cell Volume 83.2 82.9 - 93.1 fL [facility] Mean Cell Hemoglobin 29.1 27.5 - 32.1 pg [facility] Mean Cell Hemoglobin Concentration 34.9 32.0 - 35.7 g/dL [facility] Platelet 147 145 - 357 x10(3)/mc L [facility] RDW Standard Deviation 39.9 36.0 - 45.0 fL [facility] RDW coefficient of variation 13.2 11.4 - 13.8 % [facility] Mean Platelet Volume 9.9 7.6 - 12.9 fL [facility] NRBC% auto 0.0 % [facility] NRBC Absolute 0.000 0.000 - 0.000 x10(3)/mc L [facility] Blood 02/18/2024 1:40 AM EDT 02/18/2024 1:56 AM EDT Narrative Resulting Agency Comment Spec In Lab Neftali FRENCH HEMATOLOGY ORDER OLE [facility] [place] [address] * (ABNORMAL) Basic Metabolic Panel (non-fasting) (02/18/2024 [...] CHEMISTRY ORDERABLE S [facility] [place] [address] * (ABNORMAL) Troponin (02/18/2024 1:40 AM EDT) [...] troponin value can be found in the [facility] Test Catalog Troponin - [facility] Test Catalog Reference: Fourth Meridian Definition of Myocardial Infarction. Journal of the [place] College [employer] 2018;72:7951-4816 Blood 02/18/2024 1:40 AM EDT 02/18/2024 1:56 AM EDT Narrative Resulting Agency Comment Spec In Lab Hayder Graham MD CHEMISTRY ORDERABLE S [facility] [place] [address] * POCT Glucose (02/17/2024 8:13 PM EDT) Glucose, POC 142 65 - 199 mg/dL [facility] Comment: Supplemental ranges: <140 mg/dL before meals <180 mg/dL all other times of the day Blood 02/17/2024 8:13 PM EDT 02/17/2024 8:13 PM EDT Hayder Graham MD POINT OF CARE TEST ORDERABLES Performing Organization Address [facility]/ZIP Co de Phone Number [facility] [place] [address] * POCT Glucose (02/17/2024 5:42 PM EDT) Glucose, POC 160 65 - 199 mg/dL [facility] Comment: Supplemental ranges: <140 mg/dL before meals <180 mg/dL all other times of the day Blood 02/17/2024 5:42 PM EDT 02/17/2024 5:42 PM EDT Hayder Graham MD POINT OF CARE TEST ORDERABLES Performing Organization Address City/[facility]/ZIP Co de Phone Number [facility] [place] [address] * Hemoglobin (02/17/2024 5:42 PM EDT) Hemoglobin 13.7 13.7 - 16.5 g/dL [facility] Blood 02/17/2024 5:42 PM EDT 02/17/2024 6:10 PM EDT Narrative Resulting Agency Comment Spec In Lab Hayder Graham MD HEMATOLOGY ORDERABL ES Performing Organization Address [facility] Co de Phone Number [facility] [place] [address] * Potassium (02/17/2024 5:42 PM EDT) Potassium [...] MD CHEMISTRY ORDERABLE S Performing Organization Address [facility] de Phone Number [facility] [place] [address] * (ABNORMAL) BLOOD GAS 2 ARTERIAL (02/17/2024 [...] [facility] FIO2 Art 40 % [facility] PF Ratio Art 195 [facility] Blood 02/17/2024 4:18 PM EDT 02/17/2024 4:18 PM EDT Hayder Graham MD POINT OF CARE TEST ORDERABLES Performing Organization Address City/State/[facility] Co de Phone Number [facility] [place] [address] * XR Chest One View (02/17/2024 1:44 PM EDT) WORKSTATION ID [id number] RAD Anatomical Region Laterality Modality Chest N/A Digital Radiogra phy Impressions 02/17/2024 2:12 PM EDT 1. ??No definite pleural fluid collection or pneumothorax. 2. ??Right IJ Avalon-Kaila catheter tip terminates in a descending branch [...] questions please contact the health acute care physical therapist that requested your imaging first. ? Electronically signed by: Denzel Hankins MD, [facility] ??([phone]), at 02/17/2024 2:12 PM Narrative 02/17/2024 2:12 PM EDT EXAMINATION: XR CHEST ONE VIEW CLINICAL HISTORY: s/p avr/cabg eval effusions TECHNIQUE: 1 view of the chest COMPARISON: Chest x-ray 01/09/2024, chest CT 02/03/2024 FINDINGS: ET tube tip terminates 5.2 cm above the carlos. Right IJ Avalon-Kaila catheter tip terminates in a descending branch [...] 5.2 cm above the carlos. Right IJ Avalon-Ganzcatheter tip terminates in a descending branch of [...] fluid collection or pneumothorax. 2. Right IJ Avalon-Kaila catheter tip terminates in a descending branch ofthe right pulmonary artery. Suggest catheter retraction. 3. Additional support lines and tubes as above. Thank you for letting us participate in the care of this patient. If youare a health care provider and have any questions regarding this report,please contact the number below. For patients who have questions please contactthe health acute care physical therapist that requested your imaging first. Electronically signed by: Denzel Hankins MD, [facility]([phone]), at 02/17/2024 2:12 PM Hayder Graham MD [...] [facility] FIO2 Art 100 % [facility] PF Ratio Art 320 [facility] Blood 02/17/2024 1:31 PM EDT 02/17/2024 1:31 PM EDT Hayder Graham MD POINT OF CARE TEST ORDERABLES Performing Organization Address City/State/[facility] Co de Phone Number [facility] [place] [address] * (ABNORMAL) Coox2 (02/17/2024 1:21 PM EDT) [...] CARE TEST ORDERABLES [facility] [place] [address] * (ABNORMAL) BLOOD GAS 2 ARTERIAL (02/17/2024 [...] OF CARE TEST ORDERABLES Performing Organization Address [facility] de Phone Number [facility] [place] [address] * (ABNORMAL) Fibrinogen (02/17/2024 12:10 PM EDT) [...] MD HEMATOLOGY ORDERABLE S Performing Organization Address [facility] Co de Phone Number [facility] [place] [address] * (ABNORMAL) Thrombin time (02/17/2024 12:10 PM [...] MD HEMATOLOGY ORDERABLE S Performing Organization Address [facility] de Phone Number [facility] [place] [address] * APTT (02/17/2024 12:10 PM EDT) Partial [...] MD HEMATOLOGY ORDERABLE S Performing Organization Address [facility] de Phone Number [facility] [place] [address] * (ABNORMAL) Prothrombin Time (02/17/2024 12:10 PM [...] HEMATOLOGY ORDERABLE S [facility] [place] [address] * (ABNORMAL) Hemogram (02/17/2024 12:10 PM EDT) [...] [facility] NRBC% auto 0.0 % [facility] NRBC Absolute 0.000 0.000 - 0.000 x10(3)/mc L [facility] Blood 02/17/2024 12:1 0 PM EDT 02/17/2024 12:19 PM EDT Narrative Resulting Agency Comment Spec In Lab Tara York MD HEMATOLOGY ORDERABLE S [facility] [place] [address] * (ABNORMAL) BLOOD GAS 2 ARTERIAL (02/17/2024 [...] [facility] Comment: Noted by musical instrument [...] CARE TEST ORDERABLES [facility] [place] [address] * (ABNORMAL) BLOOD GAS 2 ARTERIAL (02/17/2024 [...] [facility] Comment: Noted by musical instrument [...] OF CARE TEST ORDERABLES Performing Organization Address City/[facility]/[place] [address] * (ABNORMAL) Hemoglobin and Hematocrit, blood (02/17/2024 [...] HEMATOLOGY ORDERABL ES [facility] [place] [address] * (ABNORMAL) Platelet count (02/17/2024 11:04 AM EDT) Platelet 106(L) 145 - 357 x10(3)/mc L [facility] Immature Plt % 1.6 0.0 - 7.4 % [facility] Comment: Limitation of the Immature Platelet Fraction (IPF)-May be less reliable when the platelet count is less than 33s171/uL due to statistical imprecision. The IPF value [...] in a decreased state of production. References: [employer] The Clinical Value of the Immature Platelet Fraction (IPF) in Cell Recovery Document Number [id number] 03/2011 [employer] The Role of the Immature Platelet Fraction (IPF) in the Differential Diagnosis of Thrombocytopenia, Document [id number] V002/15/14 P014 Blood 02/17/2024 11:0 4 AM EDT 02/17/2024 11:12 AM EDT Narrative Resulting Agency Comment Spec In Lab Hayder Graham MD HEMATOLOGY ORDERABL ES [facility] [place] [address] * (ABNORMAL) Fibrinogen (02/17/2024 11:04 AM EDT) Pathologist [facility] Fibrinogen 149(L) 200 - 393 mg/dL [facility] Comment: OR Result called by ?? SALVLT OR Results read back by: ? Alondra Pagan at 2024-02-17 11:30:47 A fibrinogen level >100 mg/dL is adequate for hemostasis in most patients without underlying bleeding disorders. Blood 02/17/2024 11:0 4 AM EDT 02/17/2024 11:12 AM EDT Narrative Resulting Agency Comment Spec In Lab Hayedr Graham MD HEMATOLOGY ORDERABL ES [facility] [place] [address] * (ABNORMAL) BLOOD GAS 2 ARTERIAL (02/17/2024 [...] OF CARE TEST ORDERABLES Performing Organization Address City/State/[facility] Co de Phone Number [facility] [place] [address] * (ABNORMAL) BLOOD GAS 2 ARTERIAL (02/17/2024 [...] OF CARE TEST ORDERABLES Performing Organization Address City/State/[facility] Co de Phone Number [facility] [place] [address] * Surgical Pathology Report (02/17/2024 10:01 AM EDT) Final Diagnosis [id number] ? Location: [facility]; [facility]; The signing pathologist has (i) examined the relevant preparation(s) for the specimen(s) and (ii) rendered or confirmed the diagnosis(es). . ?Surgical Pathology DIAGNOSIS Aortic valve leaflets, excision: Valve leaflets with myxoid degeneration, nodular fibrosis and dystrophic calcifications. Electronically signed by: ?Livier Montoya MD Verified: ??02/24/2024 13:49 ??Pathologist Performed at: ??-[facility] Dept. of Pathology, [place] [address] Centrifugal Screen Tender: Job Brewer MD, FCAP, ??CLIA Certificate: [id number] SPECIMEN(S) SUBMITTED A - Aortic Valve Leaflets, [...] Sections Processing Blocks submitted for decalcification: A1. Fancy Sewer sections in 1 cassette labeled A1. ??ajw 02/24/2024 1:49 PM EDT [facility] AORTIC STRUCTURE / Unknown 02/17/2024 10:01 AM EDT 02/17/2024 10:01 AM EDT Hayder Graham MD PATHOLOGY/CYTOLOGY ORDERABLES Performing Organization Address City/[facility]/ZIP Co de Phone Number [facility] [place] [address] * Specimen to Pathology (02/17/2024 10:01 AM EDT) AP Specimen 02/17/2024 10:0 1 AM EDT 02/17/2024 10:01 AM EDT Narrative [facility] - 02/17/2024 10:01 AM EDT Specimen requisition ordered. ??Separate Pathology report to follow Hayder Graham MD PATHOLOGY/CYTOLOGY ORDERABLES Performing Organization Address [facility]/ZIP Co de Phone Number [facility] [place] [address] * (ABNORMAL) BLOOD GAS 2 ARTERIAL (02/17/2024 [...] CARE TEST ORDERABLES [facility] [place] [address] * (ABNORMAL) BLOOD GAS 2 VENOUS (02/17/2024 9:34 AM EDT) pH, Venous 7.22(Criti marquez) 7.32 - 7.42 [facility] Comment:Noted by musical instrument maker or repairer. PCO2, Venous 43 41 - 51 mmHg [facility] Comment:Noted by musical instrument maker or repairer. PO2, Venous 57(H) 25 - 40 mmHg [facility] Comment:Noted by musical instrument maker or repairer. Bicarbonate, Venous 17.1 mmol/L [facility] Comment:Noted by musical instrument maker or repairer. Base Excess, Venous -10.6 mmol/L [facility] Comment:Noted by musical instrument maker or repairer. Hgb Blood Gas 11.2(L) 13.7 - 16.5 g/dL [facility] Comment:Noted by musical instrument maker or repairer. Oxyhemoglobin, Venous 86.5 % [facility] Comment:Noted by musical instrument maker or repairer. Carboxyhemoglob in, Venous 0.3 % [facility] Comment: Noted by musical instrument maker or repairer. Nonsmokers: 0.5-1.5% COHB Smokers: Variable, but usually less than 10% Toxic: 20-30% COHB Lethal: Greater than 60% COHB Methemoglobin, Venous 0.0 <=1.5 % [facility] Comment:Noted by musical instrument maker or repairer. Na Whole Blood 156(H) 135 - 145 mmol/L [facility] Comment:Noted by musical instrument maker or repairer. K Whole Blood 5.5(H) 3.5 - 5.0 mmol/L [facility] Comment: Noted by musical instrument maker or repairer. Please note: Patients with WBC >100,000 may have falsely elevated Potassium levels. Contact the Clinical Chemistry Laboratory if there are any questions. ICa Whole Blood 1.03(L) 1.15 - 1.33 mmol/L [facility] Comment: Noted by musical instrument maker or repairer. Note: ??Total bilirubin higher than 20 mg/dL may lead to falsely low ionized calcium. CL Whole Blood 100 98 - 107 mmol/L [facility] Comment:Noted by musical instrument maker or repairer. Gluc Whole Bld 132 65 - 199 mg/dL [facility] Comment: Noted by musical instrument maker or repairer. Diabetes: >=200 mg/dL plus symptoms Lactate WB 1.0 0.5 - 2.2 mmol/L [facility] Comment:Noted by musical instrument maker or repairer. Blood Gas Source Venous [facility] Blood 02/17/2024 9:34 AM EDT 02/17/2024 9:34 AM EDT Hayder Graham MD POINT OF CARE TEST ORDERABLES [facility] [place] [address] * (ABNORMAL) BLOOD GAS 2 ARTERIAL (02/17/2024 [...] OF CARE TEST ORDERABLES Performing Organization Address [facility] Co de Phone Number [facility] [place] [address] * POCT Glucose (02/17/2024 6:38 AM EDT) Glucose, POC 98 65 - 199 mg/dL [facility] Comment: Supplemental ranges: <140 mg/dL before meals <180 mg/dL all other times of the day Blood 02/17/2024 6:38 AM EDT 02/17/2024 6:38 AM EDT Hayder Graham MD POINT OF CARE TEST ORDERABLES Performing Organization Address [facility] Co de Phone Number [facility] [place] [address] * Transesophageal Echo/OR (02/17/2024 6:33 AM EDT) [...] [facility]-operative [facility] of cardiac [...] 6 hours upon arrival to Unit. Give NC if unable to take PO, Routine Given [...] dose on Sat02/17/24 at 1400, Until Discontinued, [place] teeth and / or gums. Scan the CHG vial in the [employer] Q-Care Oral Care Kit from floor stock. Ventilator-associated pneumonia prophylaxis For use in ICU/Critical care locations ONLY. Obtain kit from Floor Stock location. Scan CHG vial in the [employer] Q-Care Oral Care Kit, Routine Given 02/17/2024 [...] at 50% of previous rate. Call warehouse distribution associate if goal not achieved at maximum rate. [...] PHENYLephrine and/or vasopressin ineffective. Call pager # [phone] if initiated. Titrate to keep systolic blood [...] L/min/M2. Maximum volume 2 L. Call warehouse distribution associate for additional fluid orders: pager #[phone]. Rate/Dose Verify 02/18/2024 8:00 AM EDT 1 mL/hr 1 mL/hr Rate/Dose Verify 02/18/2024 6:00 AM EDT 1 mL/hr 1 mL/hr Rate/Dose Verify 02/18/2024 4:00 AM EDT 1 mL/hr 1 mL/hr sodium chloride 0.9% infusion 10-30 mL/hr, Intravenous, DAILY PRN, Starting on Sat02/17/24 at 1307, Until Sat02/18/24 at 0835, Side port TKO rate, per [facility] nursing protocol. Rate/Dose Verify 02/17/2024 8:00 PM EDT 30 mL/hr 30 mL/hr Rate/Dose Verify 02/17/2024 6:00 PM EDT 30 mL/hr 30 mL/h r Rate/Dose Verify 02/17/2024 5:00 PM EDT 30 mL/hr 30 mL/h r sodium chloride 0.9% infusion 10-30 mL/hr, Intravenous, DAILY PRN, Starting on Sat02/17/24 at 1307, Until Sat02/18/24 at 0835, Side port TKO rate, per [facility] nrusing protocol. Rate/Dose Verify 02/18/2024 8:00 AM [...] Routine documented in this encounter Care Teams Flight Inspector Relationship Specialty Start Date End Date Aparna Jordan APRN PCP - General Family Medicine 10/21/23 05/26/24 documented as of this encounter
--- OUTSIDE RECORDS SUMMARY | 2024-06-03 08:15 | XMS_ITS | Encounter Summary ---
Author Organization [facility]ly [facility] Address [facility] [place] [address] Care Team Providers Care Social Economist Name Role Phone Vanessa Christian MOP MAN Primary Care Provider [phone] Reason for Referral * Diagnostic Test (Routine) - Closed Specialty Diagnoses / Procedures Referred By Contac t Referred To Contact Radiology Diagnoses Nonrheumatic aortic valve stenosis Procedures CT Chest wo Contrast (Generic) Louisa Reid PA [facility] [place] [address] [facility] [place] [address] Referral ID Status Reason Start Date Expiration Date V isits Requested Visits Authorized [id number] Closed Specialty Service Requested 01/10/2024 07/11/2025 1 1 Encounter Details Date Type Department Care Team (Late st Contact Info) Description 01/09/2024 Orders Only [place] [address] Zak Farmer MD [facility] [place] [address] Nonrheumatic aortic valve stenosis Social History Tobacco [...] PM EST Office Visit Cardiology at [address] [place] [address] Neftali Ernandez MD [facility] [place] [address] documented as of this encounter Results * CT Chest wo Contrast (Generic) (02/03/2024 7:44 AM EDT) WORKSTATION ID [id number] RAD Anatomical Region Laterality Modality Chest Computed [...] have questions please contact the health career and guidance counselor that requested your imaging first. ? Narrative [...] who have questions please contactthe health career and guidance counselor that requested your imaging first. Zak Farmer MD IMG CT ORDERABLES documented in this encounter Visit Diagnoses Diagnosis Nonrheumatic aortic valve stenosis Aortic valve disorders Nonrheumatic aortic valve stenosis Aortic valve disorders documented in this encounter Care Teams Social Economist Relationship Specialty Start Date End Date Vanessa Christian APRN PCP - General Family Medicine 10/21/23 05/26/24 documented as of this encounter
--- OUTSIDE RECORDS SUMMARY | 2024-06-03 08:15 | XMS_ITS | Encounter Summary ---
[facility] Organization [facility] [place] [address] Care Team Providers Care Ply Bander Name Role Phone Aparna Jordan MAURI Primary Care Provider [phone] Reason for Visit * Auth/Cert (Routine) Specialty [...] (WRVU 7.93) Hayder Graham MD [facility] [place] [address] [facility] Referral ID Status Reason Start Date Expiration Date Visits Re quested Visits Authorized [id number] 1 1 Encounter Details Date Type Department Care Team (Late st Contact Info) Description 02/17/2024 7:30 AM EDT - 02/17/2024 1:26 PM EDT [place] [id number] Hayder Graham MD [facility] [place] [address] ENDOSCOPIC HARVEST VEIN(S) FOR CABG (WRVU 0.31) Social History Tobacco Use Types Packs/Day Years Used Date Smoking Tobacco: Former Cigarettes Smokeless Tobacco: Never Comments:Quit 15 + years ago Alcohol Use Standard Drinks/Week Comments Yes 0 (1 standard drink = 0.6 oz pur e alcohol) rare [facility] Utilities Answer Date Recorded In the [...] 1-2 weeks. Patient to follow up with Textile Conversion Manager, Neftali Ernandez MD , in 2 weeks. Patient to follow up with Cardiac Surgeon, Dr. Hayder Graham, with a chest x-ray, EKG, and Echo. Inpatient Provider Contact Information: [facility] Section of Cardiac Surgery [facility] [place], [place] [address] FAX [phone] Discharge Diagnoses (Hospital Problems) Primary Diagnoses: /CAD [...] 33.75) performed by Hayder Graham MD at [facility] MAIN OR PRO CABG, ARTERY-VEIN, TWO N/A 02/17/2024 @CABG, TWO VENOUS GRAFTS & ARTERIAL GRAFT (WRVU 7.93) performed by Hayder Graham MD at [facility] MAIN OR PRO ENDOSCOPY W/VIDEO-ASST VEIN HARVEST, CABG Left 02/17/2024 ENDOSCOPIC HARVEST VEIN(S) FOR CABG (WRVU 0.31) performed by Hayder Graham MD at [facility] MAIN OR PRO REPLACEMENT PROSTHETIC AORTIC VALVE OPEN W CARDIOPULMONARY BYPASS HOMOGRF/STENT N/A 02/17/2024 @REPLACE AORTIC VALVE, OPEN, W\CPB, W\PROSTHETIC VALVE (WRVU 41.32) performed by Hayder Graham MD at [facility] MAIN OR Prior To Admission [...] insufficiency. He has glaucoma. He used to bacShopText until about 15 years ago. He has undergone prior herniorrhaphy. 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 Major Procedures/Operations: 02/17/24 s/p avr/cabgx3 CABG x 3 JOSE->LAD SVG->dRCA SVG->OM1 EVH from LLE AVR with a 23 mm Inspiris Bioprosthesis Hospital Course: Karlos Garcia was admitted to [facility] on 02/17/2024 via the Same [...] Hayder Graham and/or the Cardiac Surgery Physician Auto Machinist Team may be reached at . Antibiotic [...] Please refer to the card with the [place] Heart Association Guidelines for more information. You [...] Dr. Hayder Graham. You may use a [place] Track or treadmill but avoid any pulling [...] friends, go to a movie, go to alevism, etc. Heavy activities: No hunting, skiing, jogging, [...] should resume a low fat, low cholesterol, [place] Heart Association Diet. Driving: No driving until [...] while being managed by your PCP and/or Textile Conversion Manager. For future medication refills, please refer to your PCP and/or Textile Conversion Manager after your discharge from our service. Thank you REMOVE CHEST TUBE SUTURES ON OR AFTER 03/02/24 Home oxygen therapy: N/A Follow up appointments: You should follow up with your PCP, Aparna Jordan APRN, in 1-2 weeks. Our office will schedule an appointment with your Textile Conversion Manager, Neftali Ernandez MD , in 2 weeks. You have an appointment with your Cardiac Surgeon, Dr. Hayder Graham, 4 weeks with a chest x-ray, EKG, and Echo before your appointment. Cardiac Rehabilitation: Karlos Garcia was seen regarding participation in the outpatient Phase 2Cardiac Rehabilitation at [facility]. The patient agrees to a referral to this program. The referral will be sent at discharge and the patient should be contacted by the Program within 1- 2 weeks from discharge. Future Appointments and Orders Future Orders Complete By Expires Echocardiogram Transthoracic [23971 CPT(R)] 03/26/2024 09/25/2024 Process Instructions: Scheduling Instructions: Questions: Where will study be performed?: [facility] Does the patient have Congenital Heart Disease?: Does patient require sedation?: Sedation rationale: XR Chest PA & Lateral (Generic) [21644 69131 Custom] 03/26/2024 09/25/2024 Process Instructions: Scheduling Instructions: Questions: Portable exam?: Reason for exam and clinical history: s/p avr/cabg Clinical information / jerome questions for radiologist: Stat read required?: Date of injury if applicable: Requested Time: Where will study be performed?: [facility] Radiology Referral to Cardiac Rehab [[id number] Custom] As directed Process Instructions: If no progress note charted, please enter Clinical details in comments. Scheduling Instructions: Questions: My question or request is: s/p AVR/CABG. Cardiac rehab at [facility]. Referral to Home Health [REF34 Custom] As directed Process Instructions: If no progress note charted, please enter Clinical details in comments. Scheduling Instructions: Comments: Please evaluate Karlos Garcia for admission to Home Health. [address] Phone Number: Date of : 1960 Inpatient DOCUMENTATION FOR VNA SERVICES (INCLUDING THOSE PATIENTS WITH MEDICARE COVERAGE REQUIRING HOME VNA SERVICES AND/OR HOSPICE SERVICES) PATIENT'S LOCATION: Karlos Garcia [address] Experience Headphones [phone] Music Grapher's Name: self/family In discussion with the attending physician, it is certified that this patient is under their care and that they, or a Nurse Practitioner, or Physician Auto Machinist who is working directly with them, hada [...] for services as follows: HOME HEALTH AGENCY: [facility] [address] [place] [id number] RN orders: Cardiopulmonary assessment, incisional assessment, assess [...] issues please call the Cardiology Office at [phone] FOR MEDICARE ONLY: (please delete this section [...] care: As above. Signed: NEFTALI MENON PA-C [facility] Section of Cardiac Surgery [facility] [place], [place] [address] FAX [phone] Date: 02/24/2024 CC: Aparna Jordan, MAURI Jordan, Aparna Sherman APRN [address] [place] [address] documented in this encounter Discharge Instructions * [...] Hayder Graham and/or the Cardiac Surgery Physician Auto Machinist Team may be reached at . Antibiotic [...] Please refer to the card with the [place] Heart Association Guidelines for more information. You [...] Dr. Hayder Graham. You may use a [place] Track or treadmill but avoid any pulling [...] friends, go to a movie, go to alevism, etc. Heavy activities: No hunting, skiing, jogging, [...] should resume a low fat, low cholesterol, [place] Heart Association Diet. Driving: No driving until [...] while being managed by your PCP and/or Textile Conversion Manager. For future medication refills, please refer to your PCP and/or Textile Conversion Manager after your discharge from our service. Thank you REMOVE CHEST TUBE SUTURES ON OR AFTER 03/02/24 Home oxygen therapy: N/A Follow up appointments: You should follow up with your PCP, Aparna Jordan APRN, in 1-2 weeks. Our office will schedule an appointment with your Textile Conversion Manager, Neftali Ernandez MD , in 2 weeks. You have an appointment with your Cardiac Surgeon, Dr. Hayder Graham, 4 weeks with a chest x-ray, EKG, and Echo before your appointment. Cardiac Rehabilitation: Karlos Garcia was seen regarding participation in the outpatient Phase 2Cardiac Rehabilitation at [facility]. The patient agrees to a [...] 0600 and on the weekends please page [phone]. * Eric Barahona PA - 02/23/2024 9:27 [...] 0600 and on the weekends please page [phone]. * Tiffanie Owens - 02/22/2024 2:48 PM [...] d/c for 10 days. 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 He works Precautions/Special Considerations: STERNAL [...] LRAD and supervision Time IN / OUT: 3895-7871 Total Time: 30 minutes; TEFx2 Tiffanie Owens Pager: [phone] Physical Therapy Inpatient Rehabilitation Department * Romeo [...] 0600 and on the weekends please page [phone]. * Kelley Hinson INSURANCE CLAIM APPROVER - 02/21/2024 10:15 AM EDT Physical Therapy [...] d/c for 10 days. 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 He works Precautions/Special Considerations: STERNAL [...] LRAD and supervision Time IN / OUT: 0510-3217 Total Time: 25 minutes; TEF 2 Kelley Hinson PTA Pager: [phone] Physical Therapy Inpatient Rehabilitation Department * Louisa [...] 0600 and on the weekends please page [phone]. * Kelley Hinson PTA - 02/20/2024 3:32 [...] at that time Kelley Hinson PTA Pager: [phone] Physical Therapy Inpatient Rehab Department * Louisa [...] 0600 and on the weekends please page [phone]. * Maris Benavides, PT - 02/19/2024 11:22 [...] d/c for 10 days. 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 Precautions/Special Considerations: STERNAL [...] outlined inthis evaluation. MARIS BENAVIDES, PT Pager: [phone] Physical Therapy Inpatient Rehabilitation Department Time IN / OUT: 2417-0190 Total Time: 38 (eval) minutes; * Antonio [...] 0600 and on the weekends please page [phone]. * Minnie Begum PA - 02/18/2024 8:25 [...] site CDI with SANJANA wrap Tubes/Lines/Drains: RIJ/PAC, [place], Med Ctx, L pleural CT, TPW, Naqvi [...] 0600 and on the weekends please page [phone]. * Kim Ha COMMERCIAL ROOFING ESTIMATOR - 02/17/2024 2:25 PM EDT Respiratory Care [...] plan since last visit. Hayder Graham MD [phone] Source Note - Hayder Graham MD - [...] of edema. In summary, I agree Mr. aSnta would benefit from aortic valve replacement therapy pin placement therapy. Given his chronological age and the likely bicuspid nature of his aortic valve I think a surgical approach would be the most appropriate. The potential risks and anticipated benefits reviewed carefully with him. He does wish to proceed, and has given written informed consent. Hayder Graham MD [phone] * Hayder Graham MD - 02/17/2024 7:00 [...] given written informed consent. Hayder Graham MD [phone] documented in this encounter Miscellaneous Notes * [...] information for follow-up Home Health & Hospice, [address] [place] [address] Cardiac Rehab, [address] [place] [address] Transportation: family or friend will provide Functional status prior to admission: Independent Home Environment: Others in the home: alone. Current Living Arrangements: home/apartment/condo. Accessibility Concerns:a few steps to enter 1 floor home. Current Functional Ability: Assistive Person and Equipment DME used at home: none DME Needed at Discharge: N/A Patient is insured through: Primary Insurance: [place] [employer] Payor: [facility] / Plan: [facility] PPO / Product Type: *No Product type* [...] pain managed with scheduled Tylenol. Worked with [employer]. Ambulated in the roque multiple times during [...] anticipated Patient is insured through: Primary Insurance: [facility] Payor: [facility] / Plan: [facility] PPO / Product Type: *No Product type* / Secondary Insurance: N/A Last Physical Therapy Recommendation: home with home health (Str coming to stay for a week or two upon d/c) with to be determined (owns rolling walker, shower seat) Plan for discharge is: Home w/ Services Outpatient Agency/Support Group Needs: Homecare agency Home Health Services: Physical Therapy, Registered Nurse Agency Referrals: [facility]. [address] [place] [address] Transportation: family or friend will provide Barriers to discharge: Discharge planning Plan going forward: Service Care Management will continue to follow and assist with discharge planning and coordination of care as indicated. Anticipated Date of Discharge: 02/22/2024 Rhett Bell RN RN/CM - Cellphone: [phone] Pager: [phone] Covering Service RN/CM * Plan of Care [...] RN - 02/19/2024 10:44 AM EDT [facility] Karlos Garcia was seen today regarding participation in the outpatient Phase 2 Cardiac Rehabilitation at [facility]. The patient agrees to a [...] 180 days) Any patient receiving care in [place] must abide by [place] law. The hierarchy [...] (i) The agent with financial power of state's attorney or a conservator appointed in accordance [...] steady place to sleep or slept in [facility] (including now)?: No In the past 12 months has the [employer], gas, oil, or water [employer] threatened to shut off services in [...] as: [address] [facility] [address] Physical address: [address] [facility], [address] Social & Family Supports: All names listed [...] Information: none noted Health/Prescription Coverage: Primary Insurance: [facility] Payor: [facility] / Plan: [facility] PPO / Product Type: *No Product type* / Secondary Insurance: N/A ; Prescription Coverage: Yes Preferred Pharmacy: [id number] [address] Status: Patient is a : No Primary Care Provider confirmed: Aparna Jordan APRN [phone] Patient/Caregiver Goals of Treatment: dc to home Potential Needs for Transition of Care: home health care Agency Referrals: I have met with the patient to: discuss discharge planning needs. provide the [facility], Office of Care Management letter from the Bread Wrapper pertaining to rehab referrals. provide a letter describing our affiliations within the [facility] and educate about their right to choose where referrals are sent. provide a list of Home Health Agencies / Durable Medical Equipment vendors which serve their preferred geographic area. provided patient with [facility] Star Quality Rating handout. They have requested referrals to: [facility] [address] [place] [address] Note routed to a Managing Attorney who will communicate referrals to facilities and [...] Reina Greene RN CM, BSN, CMGT- Ext [phone] * Plan of Care - Binta Trinidad [...] Operative Note Patient Name: Karlos Garcia : [id number] MR#: [id number] Case Date: 02/17/2024 Surgeon: Surgeon(s) and Role: * Hayder Graham MD - Primary * Neftali Menon PA - Physician Auto Machinist Preoperative diagnosis: CAD Postoperative diagnosis: CAD, intraoperative [...] Mediastinal and Left pleural Disposition: [facility] Condition: doing well without problems Attestation: Case Date: 02/17/2024 I performed this procedure without the involvement of a resident. HAYDER GRAHAM MD 02/17/2024 * Op Note - Hayder Graham MD - 02/17/2024 8:20 AM EDT [facility] Operative Note Patient Name: Karlos Garcia : [id number] MR#: [id number] Case Date: 02/17/2024 Surgeon: Surgeons and Role: * Hayder Graham MD - Primary * Neftlai Menon PA - Physician Auto Machinist Preoperative diagnosis: CAD Postoperative diagnosis: CAD, intraoperative [...] Mediastinal and Left pleural Disposition: [facility] Procedure Description: The patient was brought [...] Office Visit Cardiology at [address] [address] Neftali Ernandez MD [facility] [place] [address] Scheduled Orders Name Type Priority Associated Diagnoses [...] Aortic Valve Open W Cardiopulmonary Bypass Homogrf/Stent (00399) Yes 02/17/2024 7:28 AM EDT CAD Cabg, Artery-Vein, Two (92404) Yes 02/17/2024 7:28 AM EDT CAD Cabg, Arterial, Single (21046) Yes 02/17/2024 7:28 AM EDT CAD Endoscopy W/Video-Asst Vein [place], Cabg (26007) Yes 02/17/2024 7:28 AM EDT CAD POCT GLUCOSE Routine 02/17/2024 6:38 AM EDT TRANSESOPHAGEAL ECHOCARDIOGRAM IN THE OR Routine 02/17/2024 6:33 AM EDT Aortic valve stenosis, etiology of cardiac valve disease unspecified LAB SCAN 02/17/2024 12:00 AM EDT IMPLANTABLE DEVICES SCAN 02/17/2024 12:00 AM EDT documented in this encounter Results * Potassium (02/24/2024 4:42 AM EDT) Potassium 4.0 3.5 - 5.0 mmol/L [facility] Comment: Please note: ??Patients [...] Lab Hayder Graham MD CHEMISTRY ORDERABLE S [facility] [place] [address] * (ABNORMAL) Basic Metabolic Panel (non-fasting) (02/23/2024 4:24 AM EDT) Glucose 117 65 - 199 mg/dL [facility] Comment:Diabetes: >=200 mg/d L plus symptoms Blood Urea Nitrogen 18 10 - 20 mg/dL [facility] Creatinine 0.71(L) 0.80 - 1.50 mg/dL [facility] Sodium 138 135 - 145 mmol/L [facility] Potassium 4.4 3.5 - 5.0 mmol/L [facility] Comment: Please note: ??Patients with WBC >100,000 may have falsely elevated Potassium levels. ??For accurate Potassium quantification in these patients send serum separator tube (gold top) for subsequent determinations. ??Contact the Clinical Chemistry Laboratory if there are any questions. Chloride 101 98 - 107 mmol/L [facility] Carbon Dioxide 26 22 - 31 mmol/L [facility] Anion Gap 11 5 - 15 mmol/L [facility] Calcium 8.8 8.5 - 10.5 mg/dL [facility] Est Glomerular Filtration Rate 102 >=60 mL/min/1. 73 m?? [facility] Comment: This patient's estimated [...] In Lab Romeo Carpio MD CHEMISTRY ORDERABLES [facility] [place] [address] * Potassium (02/22/2024 4:30 AM EDT) Potassium 3.5 3.5 - 5.0 mmol/L [facility] Comment: Please note: ??Patients [...] Lab Hayder Graham MD CHEMISTRY ORDERABLE S [facility] [place] [address] * (ABNORMAL) Basic Metabolic Panel (non-fasting) (02/21/2024 9:45 AM EDT) Glucose 123 65 - 199 mg/dL [facility] Comment:Diabetes: >=200 mg/d L plus symptoms Blood Urea Nitrogen 22(H) 10 - 20 mg/dL [facility] Creatinine 0.78(L) 0.80 - 1.50 mg/dL [facility] Sodium 140 135 - 145 mmol/L [facility] Potassium 3.9 3.5 - 5.0 mmol/L [facility] Comment: Please note: ??Patients with WBC >100,000 may have falsely elevated Potassium levels. ??For accurate Potassium quantification in these patients send serum separator tube (gold top) for subsequent determinations. ??Contact the Clinical Chemistry Laboratory if there are any questions. Chloride 100 98 - 107 mmol/L [facility] Carbon Dioxide Not Perf 22 - 31 [facility] Comment:Add-on request. Yolanda le too old to perform test. Anion Gap Unable to Calculate 5 - 15 mmol/L [facility] Calcium 8.6 8.5 - 10.5 mg/dL [facility] Est Glomerular Filtration Rate 100 >=60 mL/min/1 .73 m?? [facility] Comment: This patient's estimated [...] In Lab Romeo Carpio MD CHEMISTRY ORDERABLES [facility] [place] [address] * Lactate, whole blood, send to lab ([facility]) (02/21/2024 9:45 AM EDT) [facility] Lactate WB 2.0 0.5 - 2.2 mmol/L [facility] Blood 02/21/2024 9:45 AM EDT 02/21/2024 9:52 AM EDT Narrative Resulting Agency Comment Spec In Lab Hadyer Graham MD CHEMISTRY ORDERABLE S Performing Organization Address [facility] Co de Phone Number [facility] [place] [address] * (ABNORMAL) Hepatic Function Panel (02/21/2024 9:45 AM EDT) [facility] Protein, Total 5.7(L) 6.1 - 8.0 g/dL [facility] Albumin 3.3 3.2 - 5.2 g/dL [facility] Aspartate Aminotransferase 13 0 - 39 unit/L [facility] Alanine Aminotransferase 16 0 - 55 unit/L [facility] Alkaline Phosphatase 63 40 - 130 unit/L [facility] Bilirubin, Total 0.6 0.2 - 1.3 mg/dL [facility] Bilirubin, Direct 0.2 0.0 - 0.3 mg/dL [facility] Blood 02/21/2024 9:45 AM EDT 02/21/2024 9:52 AM EDT Narrative Resulting Agency Comment Spec In Lab Hayder Graham MD CHEMISTRY ORDERABLE S [facility] [place] [address] * Lipase (02/21/2024 9:45 AM EDT) Lipase 56 0 - 60 unit/L [facility] Blood 02/21/2024 9:45 AM EDT 02/21/2024 9:52 AM EDT Narrative Resulting Agency Comment Spec In Lab Hayder Graham MD CHEMISTRY ORDERABLE S [facility] [place] [address] * Amylase (02/21/2024 9:45 AM EDT) Amylase 69 28 - 100 unit/L [facility] Blood 02/21/2024 9:45 AM EDT 02/21/2024 9:52 AM EDT Narrative Resulting Agency Comment Spec In Lab Hayder Graham MD CHEMISTRY ORDERABLE S Performing Organization Address City/[facility]/ZIP Co de Phone Number [facility] [place] [address] * Potassium (02/21/2024 3:08 AM EDT) Potassium 3.8 3.5 - 5.0 mmol/L [facility] Comment: Please note: ??Patients [...] Lab Hayder Graham MD CHEMISTRY ORDERABLE S [facility] [place] [address] * XR Chest PA & Lateral (Generic) (02/20/2024 10:19 AM EDT) WORKSTATION ID [id number] RAD Anatomical Region Laterality Modality Chest N/A Digital Radiogra phy Impressions 02/20/2024 1:11 PM EDT Small pleural effusions. No pneumothorax Thank you for letting us participate in the care of this patient. ??If you are a health care provider and have any questions regarding this report, please contact the number below. ??For patients who have questions please contact the health career specialist that requested your imaging first. ? Electronically signed by: Rogerio Cruz MD, [facility] ??([phone]), at 02/20/2024 1:11 PM Narrative 02/20/2024 1:11 PM EDT EXAMINATION: XR CHEST PA AND LATERAL (GENERIC) CLINICAL HISTORY: s/p AVR/CABGx3 TECHNIQUE: PA and lateral views of the chest COMPARISON: 02/17/2024 FINDINGS: Support devices: Interval removal of Marcellus-Kaila catheter, endotracheal tube and mediastinal chest tubes The cardiac silhouette is stable status post median sternotomy, CABG and aortic valve replacement. There are small pleural effusions. No pneumothorax. Procedure Note Rogerio Cruz MD - 02/20/2024 EXAMINATION: XR CHEST PA AND LATERAL (GENERIC) CLINICAL HISTORY: s/p AVR/CABGx3 TECHNIQUE: PA and lateral views of the chest COMPARISON: 02/17/2024 FINDINGS: Support devices: Interval removal of Marcellus-Kaila catheter, endotracheal tubeand mediastinal chest tubes The [...] who have questions please contactthe health career specialist that requested your imaging first. Hayder Graham MD IMG DX ORDERABLES * Scan, Peripheral Blood (02/20/2024 4:23 AM EDT) Pathologist [facility] estimate Decreased [facility] RBC Morphology Normal [facility] Blood 02/20/2024 4:23 AM EDT 02/20/2024 4:42 AM EDT Narrative Resulting Agency Comment Spec In Lab Minnie FRENCH HEMATOLOGY CECILIO ALEMAN [facility] [place] [id number] * (ABNORMAL) Differential, Automated (02/20/2024 4:23 AM EDT) [facility] Neutrophil % 81.7 % [facility] Neutrophil Absolute 10.37(H) 1.70 - 6.10 x10(3)/mc L [facility] Lymph % 7.4 % [facility] LABORATORY Lymphocytes Abs 0.9 0.9 - 3.2 x10(3)/mc L [facility] Monocyte % 9.7 % [facility] Monocyte Abs 1.2(H) 0.3 - 0.9 x10(3)/mc L [facility] Eos % 0.1 % [facility] Eosinophils Abs 0.0 0.0 - 0.4 x10(3)/mc L [facility] Basophil % 0.2 % [facility] Baso Absolute 0.0 0.0 - 0.1 x10(3)/mc L [facility] Immature Gran % 0.90 % [facility] Comment: Immature granulocytes(IG's)percentage and absolute count will include metamyelocytes, myelocytes, and promyelocytes. Blood smears from CBCs yielding IG's will be scanned manually for concordance. If this scan disagrees with the automated IG or if promyelocytes are noted, a manual differential will be performed. Immature Gran Absolute 0.12(H) 0.00 - 0.04 x10(3)/mc L [facility] Blood 02/20/2024 4:23 AM EDT 02/20/2024 4:42 AM EDT Narrative Resulting Agency Comment Spec In Lab Minnie FRENCH HEMATOLOGY CECILIO ALEMAN [facility] [place] [address] * (ABNORMAL) Hemogram (02/20/2024 4:23 AM EDT) White Blood Cell 12.7(H) 4.0 - 9.5 x10(3)/ L [facility] Red Blood Cell 4.26(L) 4.58 - 5.54 x10(6)/mc L [facility] Hemoglobin 12.3(L) 13.7 - 16.5 g/dL [facility] Hematocrit 37.1(L) 40.5 - 48.5 % [facility] Mean Cell Volume 87.1 82.9 - 93.1 fL [facility] Mean Cell Hemoglobin 28.9 27.5 - 32.1 pg [facility] Mean Cell Hemoglobin Concentration 33.2 32.0 - 35.7 g/dL [facility] Platelet 88(L) 145 - 357 x10(3)/ L [facility] RDW Standard Deviation 43.5 36.0 - 45.0 fL [facility] RDW coefficient of variation 13.7 11.4 - 13.8 % [facility] Mean Platelet Volume 10.2 7.6 - 12.9 fL [facility] NRBC% auto 0.0 % [facility] NRBC Absolute 0.000 0.000 - 0.000 x10(3)/mc L [facility] Blood 02/20/2024 4:23 AM EDT 02/20/2024 4:42 AM EDT Narrative Resulting Agency Comment Spec In Lab Minnie FRENCH HEMATOLOGY CECILIO ALEMAN [facility] [place] [address] * (ABNORMAL) Basic Metabolic Panel (non-fasting) (02/20/2024 4:23 AM EDT) Glucose 113 65 - 199 mg/dL [facility] Comment:Diabetes: >=200 mg/d L plus symptoms Blood Urea Nitrogen 20 10 - 20 mg/dL [facility] Comment:result rechecked-VT Creatinine 0.71(L) 0.80 - 1.50 mg/dL [facility] Sodium 135 135 - 145 mmol/L [facility] Potassium 3.9 3.5 - 5.0 mmol/L [facility] Comment: Please note: ??Patients with WBC >100,000 may have falsely elevated Potassium levels. ??For accurate Potassium quantification in these patients send serum separator tube (gold top) for subsequent determinations. ??Contact the Clinical Chemistry Laboratory if there are any questions. Chloride 102 98 - 107 mmol/L [facility] Carbon Dioxide 25 22 - 31 mmol/L [facility] Anion Gap 8 5 - 15 mmol/L [facility] Calcium 8.7 8.5 - 10.5 mg/dL [facility] Comment:result rechecked-KS Est Glomerular Filtration Rate 102 >=60 mL/min/1. 73 m?? [facility] Comment: This patient's estimated [...] S Performing Organization Address [facility] Co de Phone Number [facility] [place] [address] * Potassium (02/19/2024 3:57 AM EDT) Potassium 4.3 3.5 - 5.0 mmol/L [facility] Comment: Please note: ??Patients [...] S Performing Organization Address [facility]/ZIP Co de Phone Number [facility] [place] [address] * POCT Glucose (02/18/2024 8:24 AM EDT) Glucose, POC 157 65 - 199 mg/dL [facility] Comment: Supplemental ranges: <140 mg/dL before meals <180 mg/dL all other times of the day Blood 02/18/2024 8:24 AM EDT 02/18/2024 8:24 AM EDT Hayder Graham MD POINT OF CARE TEST ORDERABLES Performing Organization Address City/[facility]/ZIP Co de Phone Number [facility] [place] [address] * Scan, Peripheral Blood (02/18/2024 1:40 AM EDT) Plat estimate Decreased [facility] RBC Morphology Normal [facility] Blood 02/18/2024 1:40 AM EDT 02/18/2024 1:56 AM EDT Narrative Resulting Agency Comment Spec In Lab Neftali FRENCH HEMATOLOGY ORDER OLE Performing Organization Address City/[facility] Co de Phone Number [facility] [place] [address] * (ABNORMAL) Differential, Automated (02/18/2024 1:40 AM EDT) [facility] Neutrophil % 87.1 % [facility] Neutrophil Absolute 15.03(H) 1.70 - 6.10 x10(3)/mc L [facility] Lymph % 3.0 % [facility] Lymphocytes Abs 0.5(L) 0.9 - 3.2 x10(3)/mc L [facility] Monocyte % 9.1 % [facility] Monocyte Abs 1.6(H) 0.3 - 0.9 x10(3)/mc L [facility] Eos % 0.0 % [facility] Eosinophils Abs 0.0 0.0 - 0.4 x10(3)/mc L [facility] Basophil % 0.2 % [facility] Baso Absolute 0.0 0.0 - 0.1 x10(3)/mc L [facility] Immature Gran % 0.60 % [facility] Comment: Immature granulocytes(IG's)percentage and absolute count will include metamyelocytes, myelocytes, and promyelocytes. Blood smears from CBCs yielding IG's will be scanned manually for concordance. If this scan disagrees with the automated IG or if promyelocytes are noted, a manual differential will be performed. Immature Gran Absolute 0.10(H) 0.00 - 0.04 x10(3)/mc L [facility] Blood 02/18/2024 1:40 AM EDT 02/18/2024 1:56 AM EDT Narrative Resulting Agency Comment Spec In Lab Neftali FRENCH HEMATOLOGY ORDER OLE [facility] [place] [address] * (ABNORMAL) Hemogram (02/18/2024 1:40 AM EDT) White Blood Cell 17.2(H) 4.0 - 9.5 x10(3)/mc L [facility] Red Blood Cell 4.71 4.58 - 5.54 x10(6)/mc L [facility] Hemoglobin 13.7 13.7 - 16.5 g/dL [facility] Hematocrit 39.2(L) 40.5 - 48.5 % [facility] Mean Cell Volume 83.2 82.9 - 93.1 fL [facility] Mean Cell Hemoglobin 29.1 27.5 - 32.1 pg [facility] Mean Cell Hemoglobin Concentration 34.9 32.0 - 35.7 g/dL [facility] Platelet 147 145 - 357 x10(3)/mc L [facility] RDW Standard Deviation 39.9 36.0 - 45.0 [facility] RDW coefficient of variation 13.2 11.4 - 13.8 % [facility] Mean Platelet Volume 9.9 7.6 - 12.9 fL [facility] NRBC% auto 0.0 % [facility] NRBC Absolute 0.000 0.000 - 0.000 x10(3)/mc L [facility] Blood 02/18/2024 1:40 AM EDT 02/18/2024 1:56 AM EDT Narrative Resulting Agency Comment Spec In Lab Neftali FRENCH HEMATOLOGY ORDER OLE [facility] [place] [address] * (ABNORMAL) Basic Metabolic Panel (non-fasting) (02/18/2024 1:40 AM EDT) Glucose 176 65 - 199 mg/dL [facility] Comment:Diabetes: >=200 mg/d L plus symptoms Blood Urea Nitrogen 10 10 - 20 mg/dL [facility] Creatinine 0.65(L) 0.80 - 1.50 mg/dL [facility] Sodium 135 135 - 145 mmol/L [facility] Potassium 4.2 3.5 - 5.0 mmol/L [facility] Comment: Please note: ??Patients with WBC >100,000 may have falsely elevated Potassium levels. ??For accurate Potassium quantification in these patients send serum separator tube (gold top) for subsequent determinations. ??Contact the Clinical Chemistry Laboratory if there are any questions. Chloride 106 98 - 107 mmol/L [facility] Carbon Dioxide 20(L) 22 - 31 mmol/L [facility] Anion Gap 9 5 - 15 mmol/L [facility] Calcium 7.6(L) 8.5 - 10.5 mg/dL [facility] Est Glomerular Filtration Rate 105 >=60 mL/min/1. 73 m?? [facility] Comment: This patient's estimated [...] Lab Hayder Graham MD CHEMISTRY ORDERABLE S [facility] [place] [address] * (ABNORMAL) Troponin (02/18/2024 1:40 AM EDT) Pathologist [facility] Troponin-T, High Sensitivity 342(H) <=22 ng/L [facility] [...] troponin value can be found in the [facility] Laboratory Test Catalog Troponin - [facility] Laboratory Test Catalog Reference: Fourth [place] Definition of Myocardial Infarction. Journal of the [place] [employer] 2018;72:8695-1913 Blood 02/18/2024 1:40 AM EDT 02/18/2024 1:56 AM EDT Narrative Resulting Agency Comment Spec In Lab Hayder Graham MD CHEMISTRY ORDERABLE S Performing Organization Address [facility] Co de Phone Number [facility] [place] [address] * POCT Glucose (02/17/2024 8:13 PM EDT) Glucose, POC 142 65 - 199 mg/dL [facility] Comment: Supplemental ranges: <140 mg/dL before meals <180 mg/dL all other times of the day Blood 02/17/2024 8:13 PM EDT 02/17/2024 8:13 PM EDT Hayder Graham MD POINT OF CARE TEST ORDERABLES Performing Organization Address [facility] de Phone Number [facility] [place] [address] * POCT Glucose (02/17/2024 5:42 PM EDT) Glucose, POC 160 65 - 199 mg/dL [facility] Comment: Supplemental ranges: <140 mg/dL before meals <180 mg/dL all other times of the day Blood 02/17/2024 5:42 PM EDT 02/17/2024 5:42 PM EDT Hayder Graham MD POINT OF CARE TEST ORDERABLES Performing Organization Address [facility] Co de Phone Number [facility] [place] [address] * Hemoglobin (02/17/2024 5:42 PM EDT) Hemoglobin 13.7 13.7 - 16.5 g/dL [facility] Blood 02/17/2024 5:42 PM EDT 02/17/2024 6:10 PM EDT Narrative Resulting Agency Comment Spec In Lab Hayder Graham MD HEMATOLOGY ORDERABL ES Performing Organization Address [facility]/ZIP Co de Phone Number [facility] [place] [address] * Potassium (02/17/2024 5:42 PM EDT) Pathologist [facility] Potassium 4.3 3.5 - 5.0 mmol/L [facility] Comment: Please note: ??Patients [...] S Performing Organization Address [facility] Co de Phone Number [facility] [place] [address] * (ABNORMAL) BLOOD GAS 2 ARTERIAL (02/17/2024 4:18 PM EDT) pH, Arterial 7.34(L) 7.35 - 7.45 [facility] PCO2, Arterial 40 35 - 45 mmHg [facility] PO2, Arterial 78(L) 85 - 104 mmHg [facility] Bicarbonate, Arterial 20.8 20.0 - 26.0 mmol/L [facility] Base Excess, Arterial -5.1(L) -3.0 - 3.0 mmol/L [facility] Hgb Blood Gas 14.6 13.7 - 16.5 g/dL [facility] Oxyhemoglobin, Arterial 93.0(L) 94.0 - 97.0 % [facility] Carboxyhemoglob in, Arterial 0.3 % [facility] Comment: Nonsmokers: 0.5-1.5% COHB Smokers: Variable, but usually less than 10% Toxic: 20-30% COHB Lethal: Greater than 60% COHB Methemoglobin, Arterial 0.8 <=1.5 % [facility] Na Whole Blood 136 135 - 145 mmol/L [facility] K Whole Blood 4.1 3.5 - 5.0 mmol/L [facility] Comment: Please note: Patients with WBC >100,000 may have falsely elevated Potassium levels. Contact the Clinical Chemistry Laboratory if there are any questions. ICa Whole Blood 1.10(L) 1.15 - 1.33 mmol/L [facility] Comment: Note: ??Total bilirubin higher than 20 mg/dL may lead to falsely low ionized calcium. CL Whole Blood 105 98 - 107 mmol/L [facility] Gluc Whole Bld 159 65 - 199 mg/dL [facility] Comment:Diabetes: >=200 mg/d L plus symptoms. Lactate WB 1.2 0.5 - 2.2 mmol/L [facility] FIO2 Art 40 % [facility] PF Ratio Art 195 [facility] Blood 02/17/2024 4:18 PM EDT 02/17/2024 4:18 PM EDT Hayder Graham MD POINT OF CARE TEST ORDERABLES Performing Organization Address City/State/[facility] Co de Phone Number [facility] [place] [address] * XR Chest One View (02/17/2024 1:44 PM EDT) Donay WORKSTATION ID [id number] RAD Anatomical Region Laterality Modality Chest N/A Digital Radiogra phy Impressions 02/17/2024 2:12 PM EDT 1. ??No definite pleural fluid collection or pneumothorax. 2. ??Right IJ Marcellus-Kaila catheter tip terminates in a descending branch [...] have questions please contact the health career specialist that requested your imaging first. ? Electronically signed by: Denzel Hankins MD, [facility] ??([phone]), at 02/17/2024 2:12 PM Narrative 02/17/2024 2:12 PM EDT EXAMINATION: XR CHEST ONE VIEW CLINICAL HISTORY: s/p avr/cabg eval effusions TECHNIQUE: 1 view of the chest COMPARISON: Chest x-ray 01/09/2024, chest CT 02/03/2024 FINDINGS: ET tube tip terminates 5.2 cm above the carlos. Right IJ Marcellus-Kaila catheter tip terminates in a descending branch [...] 5.2 cm above the carlos. Right IJ Marcellus-Ganzcatheter tip terminates in a descending branch of [...] fluid collection or pneumothorax. 2. Right IJ Marcellus-Kaila catheter tip terminates in a descending branch ofthe right pulmonary artery. Suggest catheter retraction. 3. Additional support lines and tubes as above. Thank you for letting us participate in the care of this patient. If youare a health care provider and have any questions regarding this report,please contact the number below. For patients who have questions please contactthe health career specialist that requested your imaging first. Hayder Graham MD IMG DX ORDERABLES * (ABNORMAL) BLOOD GAS 2 ARTERIAL (02/17/2024 1:31 PM EDT) pH, Arterial 7.35 7.35 - 7.45 [facility] PCO2, Arterial 39 35 - 45 mmHg [facility] PO2, Arterial 320(H) 85 - 104 mmHg [facility] Bicarbonate, Arterial 21.4 20.0 - 26.0 mmol/L [facility] Base Excess, Arterial -4.2(L) -3.0 - 3.0 mmol/L [facility] Hgb Blood Gas 14.1 13.7 - 16.5 g/dL [facility] Oxyhemoglobin, Arterial 97.9(H) 94.0 - 97.0 % [facility] Carboxyhemoglob in, Arterial 0.3 % [facility] Comment: Nonsmokers: 0.5-1.5% COHB Smokers: Variable, but usually less than 10% Toxic: 20-30% COHB Lethal: Greater than 60% COHB Methemoglobin, Arterial 0.7 <=1.5 % [facility] Na Whole Blood 137 135 - 145 mmol/L [facility] K Whole Blood 4.2 3.5 - 5.0 mmol/L [facility] Comment: Please note: Patients with WBC >100,000 may have falsely elevated Potassium levels. Contact the Clinical Chemistry Laboratory if there are any questions. ICa Whole Blood 1.13(L) 1.15 - 1.33 mmol/L [facility] Comment: Note: ??Total bilirubin higher than 20 mg/dL may lead to falsely low ionized calcium. CL Whole Blood 108(H) 98 - 107 mmol/L [facility] Gluc Whole Bld 136 65 - 199 mg/dL [facility] Comment:Diabetes: >=200 mg/d L plus symptoms. Lactate WB 1.1 0.5 - 2.2 mmol/L [facility] FIO2 Art 100 % [facility] PF Ratio Art 320 [facility] Blood 02/17/2024 1:31 PM EDT 02/17/2024 1:31 PM EDT Hayder Graham MD POINT OF CARE TEST ORDERABLES [facility] [place] [address] * (ABNORMAL) Coox2 (02/17/2024 1:21 PM EDT) pO2, Coox 44 mmHg [facility] Hgb Blood Gas 13.1(L) 13.7 - 16.5 g/dL [facility] Oxyhemoglobin, Coox 76.4 % [facility] Carboxyhemoglo bin, Coox 0.3 % [facility] Comment: Nonsmokers: 0.5-1.5% COHB Smokers: Variable, but usually less than 10% Toxic: 20-30% COHB Lethal: Greater than 60% COHB Methemoglobin, Coox 0.8 <=1.5 % [facility] Source Coox Mixed Venous [facility] Blood 02/17/2024 1:21 PM EDT 02/17/2024 1:21 PM EDT Hayder Graham MD POINT OF CARE TEST ORDERABLES [facility] [place] [address] * (ABNORMAL) BLOOD GAS 2 ARTERIAL (02/17/2024 12:14 PM EDT) pH, Arterial 7.39 7.35 - 7.45 [facility] PCO2, Arterial 40 35 - 45 mmHg [facility] PO2, Arterial 338(H) 85 - 104 mmHg [facility] Bicarbonate, Arterial 23.7 20.0 - 26.0 mmol/L [facility] Base Excess, Arterial -1.3 -3.0 - 3.0 mmol/L [facility] Hgb Blood Gas 11.0(L) 13.7 - 16.5 g/dL [facility] Oxyhemoglobin, Arterial 98.8(H) 94.0 - 97.0 % [facility] Carboxyhemoglob in, Arterial 0.3 % [facility] Comment: Nonsmokers: 0.5-1.5% COHB Smokers: Variable, but usually less than 10% Toxic: 20-30% COHB Lethal: Greater than 60% COHB Methemoglobin, Arterial 0.3 <=1.5 % [facility] Na Whole Blood 135 135 - 145 mmol/L [facility] K Whole Blood 5.1(H) 3.5 - 5.0 mmol/L [facility] Comment: Please note: Patients with WBC >100,000 may have falsely elevated Potassium levels. Contact the Clinical Chemistry Laboratory if there are any questions. ICa Whole Blood 1.13(L) 1.15 - 1.33 mmol/L [facility] Comment: Note: ??Total bilirubin higher than 20 mg/dL may lead to falsely low ionized calcium. CL Whole Blood 106 98 - 107 mmol/L [facility] Gluc Whole Bld 132 65 - 199 mg/dL [facility] Comment:Diabetes: >=200 mg/d L plus symptoms. Lactate WB 1.4 0.5 - 2.2 mmol/L [facility] Blood 02/17/2024 12:1 4 PM EDT 02/17/2024 12:14 PM EDT Hayder Graham MD POINT OF CARE TEST ORDERABLES Performing Organization Address [facility] Co de Phone Number [facility] [place] [address] * (ABNORMAL) Fibrinogen (02/17/2024 12:10 PM EDT) Fibrinogen 154(L) 200 - 393 mg/dL [facility] Comment: OR Result called [...] S Performing Organization Address [facility] Co de Phone Number [facility] [place] [address] * (ABNORMAL) Thrombin time (02/17/2024 12:10 PM EDT) Thrombin Time 18(H) 10 - 17 sec [facility] Comment: OR Result called [...] S Performing Organization Address [facility] Co de Phone Number [facility] [place] [address] * APTT (02/17/2024 12:10 PM EDT) Partial Thromboplastin Time 33 25 - 37 sec [facility] Comment: OR Result called [...] S Performing Organization Address [facility]/ZIP Co de Phone Number [facility] [place] [address] * (ABNORMAL) Prothrombin Time (02/17/2024 12:10 PM EDT) Prothrombin Time 16.7(H) 9.4 - 12.5 sec [facility] Comment: OR Result called by ?? LOMARL OR Results read back by: ? alondra pagan at 2024-02-17 12:41:48 International Normalization Ratio 1.5 [facility] Comment: OR Result called [...] Lab Tara York MD HEMATOLOGY ORDERABLE S [facility] [place] [address] * (ABNORMAL) Hemogram (02/17/2024 12:10 PM EDT) White Blood Cell 11.1(H) 4.0 - 9.5 x10(3)/mc L [facility] Red Blood Cell 3.50(L) 4.58 - 5.54 x10(6)/mc L [facility] Hemoglobin 10.4(L) 13.7 - 16.5 g/dL [facility] Hematocrit 30.2(L) 40.5 - 48.5 % [facility] Comment: This result has been called to ALONDRA PAGAN by Eddie López on 02 17 2024 at 1226, and has been read back. Mean Cell Volume 86.3 82.9 - 93.1 fL [facility] Mean Cell Hemoglobin 29.7 27.5 - 32.1 pg [facility] Mean Cell Hemoglobin Concentration 34.4 32.0 - 35.7 g/dL [facility] Platelet 118(L) 145 - 357 x10(3)/mc L [facility] RDW Standard Deviation 40.2 36.0 - 45.0 fL [facility] RDW coefficient of variation 12.8 11.4 - 13.8 % [facility] Mean Platelet Volume 9.5 7.6 - 12.9 fL [facility] NRBC% auto 0.0 % [facility] NRBC Absolute 0.000 0.000 - 0.000 x10(3)/mc L [facility] Blood 02/17/2024 12:1 0 PM EDT 02/17/2024 12:19 PM EDT Narrative Resulting Agency Comment Spec In Lab Tara York MD HEMATOLOGY ORDERABLE S [facility] [place] [address] * (ABNORMAL) BLOOD GAS 2 ARTERIAL (02/17/2024 11:43 AM EDT) pH, Arterial 7.38 7.35 - 7.45 [facility] PCO2, Arterial 40 35 - 45 mmHg [facility] PO2, Arterial 304(H) 85 - 104 mmHg [facility] Bicarbonate, Arterial 23.2 20.0 - 26.0 mmol/L [facility] Base Excess, Arterial -1.9 -3.0 - 3.0 mmol/L [facility] Hgb Blood Gas 11.1(L) 13.7 - 16.5 g/dL [facility] Oxyhemoglobin, Arterial 98.6(H) 94.0 - 97.0 % [facility] Carboxyhemoglob in, Arterial 0.3 % [facility] Comment: Nonsmokers: 0.5-1.5% COHB Smokers: Variable, but usually less than 10% Toxic: 20-30% COHB Lethal: Greater than 60% COHB Methemoglobin, Arterial 0.3 <=1.5 % [facility] Na Whole Blood 133(L) 135 - 145 mmol/L [facility] K Whole Blood 6.2(Critic al) 3.5 - 5.0 mmol/L [facility] Comment: Noted by instrument and electrical technician. Please note: Patients with WBC >100,000 may have falsely elevated Potassium levels. Contact the Clinical Chemistry Laboratory if there are any questions. ICa Whole Blood 0.97(L) 1.15 - 1.33 mmol/L [facility] Comment: Note: ??Total bilirubin higher than 20 mg/dL may lead to falsely low ionized calcium. CL Whole Blood 104 98 - 107 mmol/L [facility] Gluc Whole Bld 128 65 - 199 mg/dL [facility] Comment:Diabetes: >=200 mg/d L plus symptoms. Lactate WB 1.1 0.5 - 2.2 mmol/L [facility] Blood 02/17/2024 11:4 3 AM EDT 02/17/2024 11:43 AM EDT Hayder Graham MD POINT OF CARE TEST ORDERABLES [facility] [place] [address] * (ABNORMAL) BLOOD GAS 2 ARTERIAL (02/17/2024 11:08 AM EDT) pH, Arterial 7.38 7.35 - 7.45 [facility] PCO2, Arterial 38 35 - 45 mmHg [facility] PO2, Arterial 334(H) 85 - 104 mmHg [facility] Bicarbonate, Arterial 22.0 20.0 - 26.0 mmol/L [facility] Base Excess, Arterial -3.2(L) -3.0 - 3.0 mmol/L [facility] Hgb Blood Gas 10.8(L) 13.7 - 16.5 g/dL [facility] Oxyhemoglobin, Arterial 98.7(H) 94.0 - 97.0 % [facility] Carboxyhemoglob in, Arterial 0.3 % [facility] Comment: Nonsmokers: 0.5-1.5% COHB Smokers: Variable, but usually less than 10% Toxic: 20-30% COHB Lethal: Greater than 60% COHB Methemoglobin, Arterial 0.3 <=1.5 % [facility] Na Whole Blood 131(L) 135 - 145 mmol/L [facility] K Whole Blood 6.4(Critic al) 3.5 - 5.0 mmol/L [facility] Comment: Noted by instrument and electrical technician. Please note: Patients with WBC >100,000 may have falsely elevated Potassium levels. Contact the Clinical Chemistry Laboratory if there are any questions. ICa Whole Blood 0.98(L) 1.15 - 1.33 mmol/L [facility] Comment: Note: ??Total bilirubin higher than 20 mg/dL may lead to falsely low ionized calcium. CL Whole Blood 104 98 - 107 mmol/L [facility] Gluc Whole Bld 127 65 - 199 mg/dL [facility] Comment:Diabetes: >=200 mg/d L plus symptoms. Lactate WB 1.0 0.5 - 2.2 mmol/L [facility] Blood 02/17/2024 11:0 8 AM EDT 02/17/2024 11:08 AM EDT Hayder Graham MD POINT OF CARE TEST ORDERABLES Performing Organization Address [facility]/ZIP Co de Phone Number [facility] [place] [address] * (ABNORMAL) Hemoglobin and Hematocrit, blood (02/17/2024 11:04 AM EDT) Pathologist [facility] Hemoglobin 9.6(L) 13.7 - 16.5 g/dL [facility] Hematocrit 28.0(L) 40.5 - 48.5 % [facility] Comment: This result has been called to ALONDRA PAGAN by Eddie López on 02 17 2024 at 1120, and has been read back. Blood 02/17/2024 11:0 4 AM EDT 02/17/2024 11:12 AM EDT Narrative Resulting Agency Comment Spec In Lab Hyader Graham MD HEMATOLOGY ORDERABL ES Performing Organization Address City/[facility]/ZIP Co de Phone Number [facility] [place] [address] * (ABNORMAL) Platelet count (02/17/2024 11:04 AM EDT) Pathologist [facility] Platelet 106(L) 145 - 357 x10(3)/mc L [facility] Immature Plt % 1.6 0.0 - 7.4 % [facility] Comment: Limitation of the Immature Platelet Fraction (IPF)-May be less reliable when the platelet count is less than 20i365/uL due to statistical imprecision. The IPF value [...] in a decreased state of production. References: [employer] The Clinical Value of the Immature Platelet Fraction (IPF) in Cell Recovery Document Number [id number] 03/2011 [employer] The Role of the Immature Platelet Fraction (IPF) in the Differential Diagnosis of Thrombocytopenia, Document [id number] V002/15/14 P014 Blood 02/17/2024 11:0 4 AM EDT 02/17/2024 11:12 AM EDT Narrative Resulting Agency Comment Spec In Lab Hayder Graham MD HEMATOLOGY ORDERABL ES Performing Organization Address City/State/[facility] Co de Phone Number [facility] [place] [address] * (ABNORMAL) Fibrinogen (02/17/2024 11:04 AM EDT) Fibrinogen 149(L) 200 - 393 mg/dL [facility] Comment: OR Result called by ?? SALVLT OR Results read back by: ? Alondra Pagan at 2024-02-17 11:30:47 A fibrinogen level >100 mg/dL is adequate for hemostasis in most patients without underlying bleeding disorders. Blood 02/17/2024 11:0 4 AM EDT 02/17/2024 11:12 AM EDT Narrative Resulting Agency Comment Spec In Lab Hayder Graham MD HEMATOLOGY ORDERABL ES [facility] [place] [address] * (ABNORMAL) BLOOD GAS 2 ARTERIAL (02/17/2024 10:41 AM EDT) pH, Arterial 7.37 7.35 - 7.45 [facility] PCO2, Arterial 44 35 - 45 mmHg [facility] PO2, Arterial 335(H) 85 - 104 mmHg [facility] Bicarbonate, Arterial 24.9 20.0 - 26.0 mmol/L [facility] Base Excess, Arterial -0.4 -3.0 - 3.0 mmol/L [facility] Hgb Blood Gas 11.5(L) 13.7 - 16.5 g/dL [facility] Oxyhemoglobin, Arterial 98.9(H) 94.0 - 97.0 % [facility] Carboxyhemoglob in, Arterial 0.1 % [facility] Comment: Nonsmokers: 0.5-1.5% COHB Smokers: Variable, but usually less than 10% Toxic: 20-30% COHB Lethal: Greater than 60% COHB Methemoglobin, Arterial 0.3 <=1.5 % [facility] Na Whole Blood 132(L) 135 - 145 mmol/L [facility] K Whole Blood 5.9(H) 3.5 - 5.0 mmol/L [facility] Comment: Please note: Patients with WBC >100,000 may have falsely elevated Potassium levels. Contact the Clinical Chemistry Laboratory if there are any questions. ICa Whole Blood 1.02(L) 1.15 - 1.33 mmol/L [facility] Comment: Note: ??Total bilirubin higher than 20 mg/dL may lead to falsely low ionized calcium. CL Whole Blood 104 98 - 107 mmol/L [facility] Gluc Whole Bld 129 65 - 199 mg/dL [facility] Comment:Diabetes: >=200 mg/d L plus symptoms. Lactate WB 1.1 0.5 - 2.2 mmol/L [facility] Blood 02/17/2024 10:4 1 AM EDT 02/17/2024 10:41 AM EDT Hayder Graham MD POINT OF CARE TEST ORDERABLES [facility] [place] [address] * (ABNORMAL) BLOOD GAS 2 ARTERIAL (02/17/2024 10:06 AM EDT) pH, Arterial 7.38 7.35 - 7.45 [facility] PCO2, Arterial 42 35 - 45 mmHg [facility] PO2, Arterial 329(H) 85 - 104 mmHg [facility] Bicarbonate, Arterial 24.7 20.0 - 26.0 mmol/L [facility] Base Excess, Arterial -0.3 -3.0 - 3.0 mmol/L [facility] Hgb Blood Gas 11.0(L) 13.7 - 16.5 g/dL [facility] Oxyhemoglobin, Arterial 99.0(H) 94.0 - 97.0 % [facility] Carboxyhemoglob in, Arterial 0.3 % [facility] Comment: Nonsmokers: 0.5-1.5% COHB Smokers: Variable, but usually less than 10% Toxic: 20-30% COHB Lethal: Greater than 60% COHB Methemoglobin, Arterial 0.3 <=1.5 % [facility] Na Whole Blood 132(L) 135 - 145 mmol/L [facility] K Whole Blood 6.0(H) 3.5 - 5.0 mmol/L [facility] Comment: Please note: Patients with WBC >100,000 may have falsely elevated Potassium levels. Contact the Clinical Chemistry Laboratory if there are any questions. ICa Whole Blood 0.97(L) 1.15 - 1.33 mmol/L [facility] Comment: Note: ??Total bilirubin higher than 20 mg/dL may lead to falsely low ionized calcium. CL Whole Blood 102 98 - 107 mmol/L [facility] Gluc Whole Bld 123 65 - 199 mg/dL [facility] Comment:Diabetes: >=200 mg/d L plus symptoms. Lactate WB 1.1 0.5 - 2.2 mmol/L [facility] Blood 02/17/2024 10:0 6 AM EDT 02/17/2024 10:06 AM EDT Hayder Graham MD POINT OF CARE TEST ORDERABLES [facility] [place] [address] * Surgical Pathology Report (02/17/2024 10:01 AM EDT) Final Diagnosis [id number] ? Location: [facility]; [facility]; The signing pathologist has (i) examined the relevant preparation(s) for the specimen(s) and (ii) rendered or confirmed the diagnosis(es). . ?Surgical Pathology DIAGNOSIS Aortic valve leaflets, excision: Valve leaflets with myxoid degeneration, nodular fibrosis and dystrophic calcifications. Electronically signed by: ?Lindsay FERNANDEZ, Livier Gonzalez Verified: ??02/24/2024 13:49 ??Pathologist Performed at: ??-[facility] [place], [place] [address] Bread Wrapper: Job Brewer MD, FCAP, ??CLIA Certificate: [id number] SPECIMEN(S) SUBMITTED A - Aortic Valve Leaflets, [...] Sections Processing Blocks submitted for decalcification: A1. Communication Center Operator sections in 1 cassette labeled A1. ??ajw 02/24/2024 1:49 PM EDT [facility] AORTIC STRUCTURE / Unknown 02/17/2024 10:01 AM EDT 02/17/2024 10:01 AM EDT Hayder Graham MD PATHOLOGY/CYTOLOGY ORDERABLES Performing Organization Address City/[facility]/ZIP Co de Phone Number [facility] [place] [address] * Specimen to Pathology (02/17/2024 10:01 AM EDT) AP Specimen 02/17/2024 10:0 1 AM EDT 02/17/2024 10:01 AM EDT Narrative [facility] - 02/17/2024 10:01 AM EDT Specimen requisition ordered. ??Separate Pathology report to follow Hayder Graham MD PATHOLOGY/CYTOLOGY ORDERABLES Performing Organization Address City/[facility]/ZIP Co de Phone Number [facility] [place] [address] * (ABNORMAL) BLOOD GAS 2 ARTERIAL (02/17/2024 9:35 AM EDT) pH, Arterial 7.33(L) 7.35 - 7.45 [facility] PCO2, Arterial 35 35 - 45 mmHg [facility] PO2, Arterial 318(H) 85 - 104 mmHg [facility] Bicarbonate, Arterial 17.9(L) 20.0 - 26.0 mmol/L [facility] Base Excess, Arterial -8.0(L) -3.0 - 3.0 mmol/L [facility] Hgb Blood Gas 11.0(L) 13.7 - 16.5 g/dL [facility] Oxyhemoglobin, Arterial 98.8(H) 94.0 - 97.0 % [facility] Carboxyhemoglob in, Arterial 0.3 % [facility] Comment: Nonsmokers: 0.5-1.5% COHB Smokers: Variable, but usually less than 10% Toxic: 20-30% COHB Lethal: Greater than 60% COHB Methemoglobin, Arterial 0.3 <=1.5 % [facility] Na Whole Blood 131(L) 135 - 145 mmol/L [facility] K Whole Blood 5.8(H) 3.5 - 5.0 mmol/L [facility] Comment: Please note: Patients with WBC >100,000 may have falsely elevated Potassium levels. Contact the Clinical Chemistry Laboratory if there are any questions. ICa Whole Blood 0.98(L) 1.15 - 1.33 mmol/L [facility] Comment: Note: ??Total bilirubin higher than 20 mg/dL may lead to falsely low ionized calcium. CL Whole Blood 101 98 - 107 mmol/L [facility] Gluc Whole Bld 122 65 - 199 mg/dL [facility] Comment:Diabetes: >=200 mg/d L plus symptoms. Lactate WB 0.8 0.5 - 2.2 mmol/L [facility] Blood 02/17/2024 9:35 AM EDT 02/17/2024 9:35 AM EDT Hayder Graham MD POINT OF CARE TEST ORDERABLES [facility] [place] [address] * (ABNORMAL) BLOOD GAS 2 VENOUS (02/17/2024 9:34 AM EDT) pH, Venous 7.22(Criti marquez) 7.32 - 7.42 [facility] Comment:Noted by instrument and electrical technician. PCO2, Venous 43 41 - 51 mmHg [facility] Comment:Noted by instrument and electrical technician. PO2, Venous 57(H) 25 - 40 mmHg [facility] Comment:Noted by instrument and electrical technician. Bicarbonate, Venous 17.1 mmol/L [facility] Comment:Noted by instrument and electrical technician. Base Excess, Venous -10.6 mmol/L [facility] Comment:Noted by instrument and electrical technician. Hgb Blood Gas 11.2(L) 13.7 - 16.5 g/dL [facility] Comment:Noted by instrument and electrical technician. Oxyhemoglobin, Venous 86.5 % [facility] Comment:Noted by instrument and electrical technician. Carboxyhemoglob in, Venous 0.3 % [facility] Comment: Noted by instrument and electrical technician. Nonsmokers: 0.5-1.5% COHB Smokers: Variable, but usually less than 10% Toxic: 20-30% COHB Lethal: Greater than 60% COHB Methemoglobin, Venous 0.0 <=1.5 % [facility] Comment:Noted by instrument and electrical technician. Na Whole Blood 156(H) 135 - 145 mmol/L [facility] Comment:Noted by instrument and electrical technician. K Whole Blood 5.5(H) 3.5 - 5.0 mmol/L [facility] Comment: Noted by instrument and electrical technician. Please note: Patients with WBC >100,000 may have falsely elevated Potassium levels. Contact the Clinical Chemistry Laboratory if there are any questions. ICa Whole Blood 1.03(L) 1.15 - 1.33 mmol/L [facility] Comment: Noted by instrument and electrical technician. Note: ??Total bilirubin higher than 20 mg/dL may lead to falsely low ionized calcium. CL Whole Blood 100 98 - 107 mmol/L [facility] Comment:Noted by instrument and electrical technician. Gluc Whole Bld 132 65 - 199 mg/dL [facility] Comment: Noted by instrument and electrical technician. Diabetes: >=200 mg/dL plus symptoms Lactate WB 1.0 0.5 - 2.2 mmol/L [facility] Comment:Noted by instrument and electrical technician. Blood Gas Source Venous [facility] Blood 02/17/2024 9:34 AM EDT 02/17/2024 9:34 AM EDT Hayder Graham MD POINT OF CARE TEST ORDERABLES [facility] [place] [address] * (ABNORMAL) BLOOD GAS 2 ARTERIAL (02/17/2024 8:07 AM EDT) pH, Arterial 7.43 7.35 - 7.45 [facility] PCO2, Arterial 34(L) 35 - 45 mmHg [facility] PO2, Arterial 581(H) 85 - 104 mmHg [facility] Bicarbonate, Arterial 21.7 20.0 - 26.0 mmol/L [facility] Base Excess, Arterial -2.6 -3.0 - 3.0 mmol/L [facility] Hgb Blood Gas 14.5 13.7 - 16.5 g/dL [facility] Oxyhemoglobin, Arterial 99.0(H) 94.0 - 97.0 % [facility] Carboxyhemoglob in, Arterial 0.4 % [facility] Comment: Nonsmokers: 0.5-1.5% COHB Smokers: Variable, but usually less than 10% Toxic: 20-30% COHB Lethal: Greater than 60% COHB Methemoglobin, Arterial 0.3 <=1.5 % [facility] Na Whole Blood 139 135 - 145 mmol/L [facility] K Whole Blood 4.0 3.5 - 5.0 mmol/L [facility] Comment: Please note: Patients with WBC >100,000 may have falsely elevated Potassium levels. Contact the Clinical Chemistry Laboratory if there are any questions. ICa Whole Blood 1.09(L) 1.15 - 1.33 mmol/L [facility] Comment: Note: ??Total bilirubin higher than 20 mg/dL may lead to falsely low ionized calcium. CL Whole Blood 106 98 - 107 mmol/L [facility] Gluc Whole Bld 100 65 - 199 mg/dL [facility] Comment:Diabetes: >=200 mg/d L plus symptoms. Lactate WB 1.3 0.5 - 2.2 mmol/L [facility] Blood 02/17/2024 8:07 AM EDT 02/17/2024 8:07 AM EDT Hayder Graham MD POINT OF CARE TEST ORDERABLES Performing Organization Address [facility] Co de Phone Number [facility] [place] [address] * POCT Glucose (02/17/2024 6:38 AM EDT) Glucose, POC 98 65 - 199 mg/dL [facility] Comment: Supplemental ranges: <140 mg/dL before meals <180 mg/dL all other times of the day Blood 02/17/2024 6:38 AM EDT 02/17/2024 6:38 AM EDT Hayder Graham MD POINT OF CARE TEST ORDERABLES Performing Organization Address [facility] Co de Phone Number [facility] [place] [address] * Transesophageal Echo/OR (02/17/2024 6:33 AM EDT) [...] [facility]-operative [facility] cardiac [...] Routine documented in this encounter Care Teams Ply Bander Relationship Specialty Start Date End Date Aparna Jordan APRN PCP - General Family Medicine 10/21/23 05/26/24 documented as of this encounter
--- OUTSIDE RECORDS SUMMARY | 2024-06-03 08:15 | XMS_ITS | Encounter Summary ---
Author Organization [facility] Address [facility] [place] [address] Care Team Providers Care Manager Payroll Name Role Phone Vanessa Christian MAURI Primary Care Provider [phone] Encounter Details Date Type Department Care Team (Latest Contact Info) Description 01/09/2024 3:02 PM EDT - 01/09/2024 11:59 PM EDT Hospital Encounter XRay at [address] [place] [address] Zak Farmer MD [facility] CARDI[facility] [address] Nonrheumatic aortic valve stenosis Discharge Disposition: Home Social History Tobacco Use Types Packs/Day Years Used Date Smoking Tobacco: Former Cigarettes Smokeless Tobacco: Never Comments:Quit 15 + years ago Alcohol Use Standard Drinks/Week Comments Yes 0 (1 standard drink = 0.6 oz pur e alcohol) rare [facility] Inpatient Questions Answer Date Recorded Prevent [...] 3:00 PM EST Office Visit Cardiology at [address] [place] [address] Neftali Ernandez MD [facility] [address] documented as of this encounter Procedures Procedure [...] who have questions please contact the health lead caregiver that requested your imaging first. ? [...] patients who have questions please contactthe health lead caregiver that requested your imaging first. Zak Farmer MD IMG DX ORDERABLES documented in this encounter Visit Diagnoses Diagnosis Nonrheumatic aortic valve stenosis Aortic valve disorders documented in this encounter Care Teams Manager Payroll Relationship Specialty Start Date End Date Vanessa Christian APRN PCP - General Family Medicine 10/21/23 05/26/24 documented as of this encounter
--- OUTSIDE RECORDS SUMMARY | 2024-06-03 08:15 | XMS_ITS | Encounter Summary ---
Author Organization [facility] [place] [address] Care Team Providers Care Sewer Contractor Name Role Phone Vanessa Christian MAURI Primary Care Provider [phone] Reason for Visit * Auth/Cert (Routine) Specialty [...] W RHC (WRVU 5.9) Rima Dickinson MD [facility] [place] [address] [facility] Referral ID Status Reason Start Date Expiration Date Visits Re quested Visits Authorized [id number] 1 1 Encounter Details Date Type Department Care Team (Late st Contact Info) Description 02/03/2024 10:00 AM EDT - 02/03/2024 11:00 AM EDT Surgery [place] [address] Saira Lua MD [facility] [place] [address] CARDIAC CATHETERIZATION Social History Tobacco Use Types [...] lbs Follow-up Visits Follow up with your personnel recruiter in 2-4 weeks Access Site 'Black and Blue' and tenderness is expected during the first week Call if you noted a mass (lump) greater than the size of a ellis Call Office with any Questions and if you have any of the following Clarence Lane M.D Interventional Retail Shift Manager Purchasing Clerk #: [phone] * Attachments The following attachments cannot be sent through Care Everywhere. * CAD (Coronary Artery Disease): General Info (Zambian) * Coronary Angiogram: Post-op (Zambian) documented in this encounter Medications at Time [...] Lane MD - 02/03/2024 11:48 AM EDT [facility] Interventional Cardiology Adult Pre-Procedure H&P Update: Cardiac Catheterization Karlos Anthony [id number] 1960 Chief Complaint: Aortic stenosis HPI: Mr. [...] is inthe chart Clarence Lane MD Interventional Retail Shift Manager 02/03/24 11:48 AM documented in this encounter Miscellaneous Notes * Brief Op Note - Clarence Lane MD - 02/03/2024 12:51 PM EDT Preliminary Cardiac Catheterization Procedure Note: Patient Name: Karlos Anthony : [id number] MR#: [id number] Case Date: 02/03/2024 Purchasing Clerk: Surgeon(s) and Role: * Saira Lua MD [...] PM EST Office Visit Cardiology at [address] [address] Neftali Ernandez MD [facility] [place] [address] Scheduled Orders Name Type Priority Associated Diagnoses [...] Modality Other Narrative 02/12/2024 3:47 PM EDT ?[facility] ? Cardiac Catheterization/Intervention Report ? Patient Name: Patenaude, Karlos ? Procedure Date: 02/03/2024 ? A #: [id number] ? Primary Physician: Saira Lua ? Case #: [id number] ? File Name: [id number] ? Catheterization Order Number: [id number] ? [facility] ?Information Systems Director [facility] ? Final Report [place], [place] ? Patient Name: ? Karlos Patenaude ? ID#: ?[id number] ? : ?1960 ? Procedure Date: ? [...] Procedure Note Saira Lua MD - 02/12/2024 [facility] Cardiac Catheterization/Intervention Report Patient Name: Karlos Anthony Procedure Date: 02/03/2024 A #: [id number] Primary Physician: Saira Lua Case #: [id number] File Name: [id number] Catheterization Order Number: [id number] [facility] FinalReport [place], [place] Patient Name: Karlos Anthony ID#:[id number] :1960 Procedure Date: February 03, 2024 Case [...] was designated as ASA Class III. The [facility] clinical frailty scale is 3: Managing [...] (Bezet) 372 ms MUSE SYSTEM Calculated P [place]ijer[place] 59 degrees MUSE SYSTEM Calculated R [place]ijer[place] 34 degrees MUSE SYSTEM Calculated T [place] 63 degrees MUSE SYSTEM INTERPRETATION Sinus bradycardia [...] MD) documented in this encounter Care Teams Sewer Contractor Relationship Specialty Start Date End Date Vanessa Christian APRN PCP - General Family Medicine 10/21/23 05/26/24 documented as of this encounter
--- OUTSIDE RECORDS SUMMARY | 2024-06-03 08:16 | XMS_ITS | Encounter Summary ---
Author Organization [facility] [address] Care Team Providers Care Greaser And Oiler Name Role Phone Victor M Lafleur MD Primary Care Provider [phone] Encounter Details Date Type Department Care Team (Late st Contact Info) Description 09/26/2023 Abstract Cardiology at [address] [address] Karen Billy, RN Nonrheumatic aortic [...] PM EST Office Visit Cardiology at [address] [place] [address] Neftali Ernandez MD [facility] [place] [address] documented as of this encounter Visit Diagnoses Diagnosis Nonrheumatic aortic valve stenosis Aortic valve disorders Nevus of face Benign neoplasm of skin of other and unspecified parts of face documented in this encounter Care Teams Greaser And Oiler Relationship Specialty Start Date End Date Victor M Lafleur MD PCP - General 10/02/13 10/20/23 documented as of this encounter
--- OUTSIDE RECORDS SUMMARY | 2024-06-03 08:16 | XMS_ITS | Data Portability ---
Author Organization [place] - [facility] Address [address] [place] [address] Care Team Providers Care Special Needs Tutor Name Role Phone APARNA JORDAN Primary Care Provider [phone] Assessment No assessment recorded. Plan of Treatment Reminders Order Date Submit Date Provider Last Modified By Organization Details Last Modified Time Details Appointments None recorded . Lab magnesiu m, serum or plasma 024 12/18/19 24 [email or web address] [facility] (Registration ), [address] [place] [address] [place], [address], 4 14:25:25 BMP, serum or plasma 024 12/18/19 24 [email or web address] [facility] (Registration ), [address] [place] [address] [place], [address], 4 14:25:24 Referral None recorded . Procedures None recorded . Surgeries None recorded . Imaging None recorded . Medication Orders None recorded . Patient TargetsNo targets recorded. Patient Instructions Encounter Date Encounter Id Patient Instructions Last Modified By Organization Details Last Modified Time 09/19/2023 [id number] SCHEDULE FOLLOW UP IN 3 MONTHS IF YOU DONT HEAR FROM THE CARDIOLOGY DEPT THIS WEEK CALL [facility] EVENT MANAGER AND LET THEM KNOW IF YOUR BREATHING GETS WORSE- GO TO THE ER, DONT OVER DO THINGS PHYSICALLY EXPECT A CALL FROM SARA ZAFAR RE: UPDATING YOUR POWER OF JUNIOR PROJECT MANAGER (NEED 2 WITNESSED SIGNATURES) Not available 09/19/2023 09:25:07 12/18/2023 [id number] Karlos: expect a call from the STructural heart team at [facility] drink at least 6 glasses of water a day. checking kidney function and magnesium labs today will mail home. follow up in 3 months for BPH, Aortic stenosis. 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 for Referral Bander Operator Referral for Roland ateral hearing loss Referring Physician: Aparna Jordan, Family Medicine, Encounter Date: 02/26/2024 Results Created Date Observation Date Name Description Value Unit Range Abnormal Flag Note LastModifiedBy Organization Detail LastModifiedTime 12/18/19 24 12/18/2023 LASIC METAB OLIC PANEL calcium 9.3 mg/dL 8.5-10 .1 normal Not Available [address] [place], [address] 12/18/2023 17:09:55 12/18/19 24 12/18/2023 LASIC METAB OLIC PANEL glucose 90 mg/dL 74-106 normal Not Available Baljit montemayor [address] [place], [address] 12/18/2023 17:09:55 12/18/19 24 12/18/2023 LASIC METAB OLIC PANEL BUN 14 mg/dL 7-18 normal Not Available Baljit montemayor [address] [place], [address] 12/18/2023 17:09:55 12/18/19 24 12/18/2023 LASIC METAB OLIC PANEL creatinine 1.0 mg/dL 0.70-1 .30 normal Not Available [address] [place], [address] 12/18/2023 17:09:55 12/18/19 24 12/18/2023 LASIC METAB OLIC PANEL estimated GFR 84.05 mL/min /1.73m 2 The eGFR is calcu lated from a serum creat inine using the CKD-E PI 2020 equat ion. Other varia bles requi red for the equat ion are gende r and age; this equat ion does not inclu de a race coeff icien t. This equat ion has simil ar overa ll perfo rmanc e to previ ous equat ions excep t value s may diffe r, in parti cular , in patie nts with highe r value s of eGFR and young er-ag ed adult s. Not Available [address] [place], [address] 12/18/2023 17:09:55 12/18/19 24 12/18/2023 LASIC METAB OLIC PANEL sodium 139 mmol/ L 136-14 5 normal Not Available [address] [place], [address] 12/18/2023 17:09:55 12/18/19 24 12/18/2023 LASIC METAB OLIC PANEL potassium 4.9 mmol/ L 3.5-5. 1 normal Not Available [address] [place], [address] 12/18/2023 17:09:55 12/18/19 24 12/18/2023 LASIC METAB OLIC PANEL chloride 104 mmol/ L 98-107 normal Not Available [address] [place], [address] 12/18/2023 17:09:55 12/18/19 24 12/18/2023 LASIC METAB OLIC PANEL CO2 30.9 mmol/ L 21.0-3 2.0 normal Not Available [address] [place], [address] 12/18/2023 17:09:55 12/18/19 24 12/18/2023 LASIC METAB OLIC PANEL anion gap 4.1 mmol/ L 3-11 normal Not Available [address] [place], [address] 12/18/2023 17:09:55 12/18/19 24 12/18/2023 MAGNE SIUM magnesium 1.8 mg/dL 1.8-2. 4 normal Not Available [address] [place], [address] 12/18/2023 17:09:56 09/11/20 23 12/05/2022 trans -thor acic echoc ardio gram (TTE) (PROC ) No observ ation record ed. [email or web address] [facility] Xray [address] , [place], [address], 09/13/2023 09:29:52 09/11/20 23 06/01/2022 XR, hip, unila teral No observ ation record ed. [email or web address] Not Available 2022 09:29:19 09/11/20 23 12/06/2019 US, echoc ardio gram No observ ation record ed. [email or web address] [facility]- Cardiology [facility], [place], [address], 09/13/2023 09:28:49 Result Notes None recorded. Problems Name Problem SNOMED Code Status Onset Date Resolution Date Notes Provider Name and Address Organization Details Recorded Time Gastroes ophageal reflux disease without esophagi tis 355225107 Active 2022 Problem Code: K21.9; Problem Code Type: ICD-10; Not Available [facility] 4 05:35:57 Glaucoma 59719577 Active 2022 Problem Code: H40.9; Problem Code Type: ICD-10; Not Available [facility] 4 05:35:57 Hyperlip idemia 28608998 Active 2022 Problem Code: E78.5; Problem Code Type: ICD-10; Not Available [facility] 4 05:35:57 [facility] hyperten niels 27756421 Active 2022 Problem Code: I10; Problem Code Type: ICD-10; Not Available [facility] 4 05:35:57 Pain of left hip joint 11546227639 9100 Active 2022 Problem Code: M25.552; Problem Code Type: ICD-10; Not Available [facility] 4 05:35:57 Idiopath ic osteoart hritis 666123515 Active 2022 Problem Code: M16.12; Problem Code Type: ICD-10; Not Available [facility] 4 05:35:57 Inguinal hernia 945114473 Active 2022 Problem Code: K40.90; Problem Code Type: ICD-10; Not Available [facility] 4 05:35:57 Heart murmur 65868664 Active 2022 Problem Code: R01.1; Problem Code Type: ICD-10; Not Available [facility] 4 05:35:57 Dyspnea 335799617 Active 2022 Problem Code: R06.09; Problem Code Type: ICD-10; Not Available [facility] 4 05:35:57 Chest pain 26113461 Active 2022 Problem Code: R07.89; Problem Code Type: ICD-10; Not Available [facility] 4 05:35:57 Melanocy tic nevus 381781917 Active 2022 Problem Code: D22.9; Problem Code Type: ICD-10; Not Available [facility] 4 05:35:57 Aortic stenosis , non-rheu matic 769112299 Active 2022 Problem Code: I35.0; Problem Code Type: ICD-10; Not Available [facility] 4 05:35:58 Aortic stenosis , non-rheu matic 895598570 Completed 202208/14/2023 Problem Code: I35.0; Problem Code Type: ICD-10; Not Available [facility] 4 05:35:58 Indigest ion 707496171 Active 2023 GLORIA CAMP LPN null, [facility] 4 08:48:57 Coronary artery bypass grafts x 3 Active [address] [facility], [facility] 4 10:30:01 At increase d risk of atrial fibrilla tion 176756711 Active [address], [place], [address] , [facility] 4 13:52:01 Anemia 515987495 Active [address], [place], [address] , [facility] 4 13:54:39 Problem Notes None recorded. Procedures Surgical History Date Name Laterality Status Provider Name and Address Organization Details Recorded Time coronary artery bypass graft completed Hudson Reeder MA [facility], [place] - [facility]. 03/04/2024 14:54:09 Imaging Results Imaging Date Name Status LastModified by Organization Details LastModified Time 12/05/2022 trans-thoracic echocardiogram (TTE) (PROC) completed [address] Xray [address] , [place], [address], 09/13/2023 09:29:52 06/01/2022 XR, hip, unilateral [place] [address] Information not available 09/13/2023 09:29:19 12/06/2019 US, echocardiogram completed [address]- Cardiology [address], [place], [address], 09/13/2023 09:28:49 Procedure Notes None recorded. Medical [...] es. Take 1 hr prior. Started by [facility]. Not Available Not [...] BY MOUTH DAILY 02/24 completed stopped by [facility] Not Available Not [...] hours by oral route as needed. active [facility] Not Available Not Available No t Available Aspirin Childrens 81 mg chewable tablet Take 1 tablet by mouth once a day active Not Available Not Available No t Available lisinopri l 5 mg tablet TAKE 1 TABLET BY MOUTH EVERY DAY 02/24 completed stopped by [facility] Not Available Not [...] day by oral route. active started by [facility] Not Available Not Available Not Available dorzolami de 2 % (PF) eye drops 1 drop both eyes bid 12/17 completed Not Available Not Available Not Available Vitals Date Recorded Body weight Body mass index (BMI) Body height Heart rate Systolic blood pressure Diastolic blood pressure Provider Name and Address Organization Details Last Updated DateTime 3 12050.7 8 g 23.7 kg/m2 167.64 cm 64 /min 110 mm[Hg] 60 mm[Hg] GLORIA ZOË , [facility], [facility] 3 08:48:49 Date Recorded Body height Body mass index (BMI) Body weight Heart rate Systolic blood pressure Diastolic blood pressure Provider Name and Address Organization Details Last Updated DateTime 4 167.64 cm 24.6 kg/m2 99844.4 4 g 60 /min 112 mm[Hg] 80 mm[Hg] GLORIA CAMP [facility] 4 08:38:13 Date Recorded Body height Body mass index (BMI) Body weight Heart rate Oxygen saturation Oxygen saturation in Arterial blood by Pulse oximetry Systolic blood pressure Diastolic blood pressure Provider Name and Address Organization Details Last Updated DateTime 4 167.64 cm 22.6 kg/m2 46629.6 5 g 63 /min 99 % 99 % 102 mm[Hg] 54 mm[Hg] Hudson Reeder MA [facility] 4 10:27:28 Social History Question Answer Notes LastModified by Organizat ion Details LastModified Time Tobacco Smoking Status Former Smoker Hudson Reeder MA null, [facility] 03/06/2024 10:24:50 Do You Have An Advance Directive? Yes Registered 08/15/23 Updated 01/12/24 Information not available 01/15/2024 When Did You Quit Smoking? 11-15years sincelastc igarette [email or web address] Information not available 03/06/2024 Do You Have A Medical Power Of Pharmacovigilance Safety Expert? Yes Received 08/30/23, Scanned. Copies Sent To [facility] And Patient 09/02/23. Information not available 09/02/2023 What Was The Date Of Your Most Recent Tobacco Screening? 03/06/2024 [email or web address] Information not available 03/06/2024 What Is Your Current Pack Years? 30ormorepa ckyears Information not available 03/06/2024 How Much Tobacco Do You Smoke? 1 PPD Information not available 03/06/2024 How Many Years Have You Smoked Tobacco? 40 [email or web address] Information not available 03/06/2024 Do You Or Have You Ever Used Any Other Forms Of Tobacco Or Nicotine? No [email or web address] Information not available 03/06/2024 Sex: Male Functional [...] Recorded Time Tdap 08/26/2013 completed Not Available [facility] 05:30:17 Td(adult) unspecified formulation 11/21/2022 completed Not Available [facility] 10/18/2023 05:30:17 COVID-19, mRNA, LNP-S, PF, 100 mcg/0.5mL dose or 50 mcg/0.25mL dose 01/24/2021 completed Not Available [facility] 10/18/19 05:30:18 COVID-19, mRNA, LNP-S, PF, 100 mcg/0.5mL dose or 50 mcg/0.25mL dose 02/21/2021 completed Not Available [facility] 10/18/19 05:30:18 COVID-19, mRNA, LNP-S, PF, 100 mcg/0.5mL dose or 50 mcg/0.25mL dose 09/11/2021 completed Not Available [facility] 10/18/19 05:30:18 influenza, unspecified formulation 07/26/2021 completed Not Available [facility] 10/18/2023 05:30:18 influenza, unspecified formulation 07/26/2022 completed Not Available [facility] 10/18/2023 05:30:18 influenza, unspecified formulation 07/28/2020 completed Not Available [facility] 10/18/2023 05:30:18 influenza, unspecified formulation 08/05/2019 completed Not Available [facility] 10/18/2023 05:30:18 influenza, unspecified formulation 08/12/2018 completed Not Available [facility] 10/18/2023 05:30:18 Past Encounters Encounter ID Performer Location Encounter Start Date Encounter Closed Date Diagnosis/Indication Diagnosis SNOMED-CT Code [id number] APARNA JORDAN [facility] [address] [place] [address] 09/19/2023 08:39:51 09/19/2023 09:17:42 Aortic valve stenosis 91704686 Essential hypertension 30258468 [id number] APARNA JORDAN [facility] [address] [place] [address] 12/18/2023 08:23:47 12/18/2023 09:29:09 Aortic stenosis, non-rheumatic 667275778 Essential hypertension 03213784 Nonulcer dyspepsia 04038 07 Cramp in lower leg 58445 8005 [id number] TATYANA LEDEZMA MD [address] [address] 03/06/2024 10:15:07 03/06/2024 11:14:28 Postoperative visit [id number] Aortic rosa m nosis, non-rheumatic 015326060 Stented co ronary artery 237054050 [facility] risk of atrial fibrillation 001873683 Anemia 750024232 Health Concerns Section Related Observation LastModified by Organization Detai ls LastModified Time None Recorded Concern Status LastModified by Organization Details LastModified Time None Recorded Advance Directives Directive Y: Registered 08/15/23Updated 01/12/24 Payers Encounter Date Sequence Insurance Name Policy Number Policy Alicia Covered Member ID Alicia Member ID Guarantor Name 12/18/2023 1 [facility] [id number] Karlos Jessica Patenaude [id number] Karlos Jessica Patenaude 03/06/2024 1 [facility] [id number] Karlos C Patenaude [id number] Karlos C Patenaude Notes Date Note Type Note Provider Name and Address Organization Details Recorded Time 09/19/2023 text/html HPI Notes: 63-year-old man here for follow-up hypertension, severe aortic stenosis., He works full-time at [email or web address]. He lives at home with his dog. He has not heard from [facility] cardiology? referred mid-August. He did decrease his lisinopril to 5 mg, home SBPs running 110- 138, no change in slight lightheadedness with change position. He does continue to get dyspnea on exertion, denies chest pain, resolves fairly quickly no peripheral edema. 12/05/2022 [facility] transthoracic echocardiogram; there is moderate to severe aortic stenosis with disparate indicators. The calculated valve area is 0.8 cm2 is consistent with severe stenosis. Planimetry confirms valve area to 0.9 cm2. The mean gradient of 28 mmHg and peak velocity of 3.6M/S are consistent with moderate stenosis. There is trivial to mild aortic insufficiency. [address], [place], [address], [facility], [facility]. 09/19/2023 13:31:38 12/18/2023 text/html HPI Notes: 63-year-old man here for follow-up hypertension, severe aortic stenosis., He works full-time at [email or web address]. He lives at home with his dog. 12/05/2022 [facility] transthoracic echocardiogram; there is moderate to [...] repair a number of years ago at [facility], it is starting to cause some discomfort. Reports leg cramps at nighttime intermittently, improves when he has a Gatorade during the daytime and Ovaltine in his coffee. [address], [place], [address], [facility], [facility]. 12/18/2023 11:43:00 03/06/2024 text/html HPI Notes: Ana Paula marlow is here today for a postop evaluation TATYANA LEDEZMA MD [address], [place], [address], [facility]. 03/08/2024 13:57:34
--- OUTSIDE RECORDS SUMMARY | 2024-06-03 08:16 | XMS_ITS | Encounter Summary ---
Author Organization [facility] [place] [address] Care Team Providers Care Needle Board Repairer Name Role Phone Vanessa Christian APRN Primary Care Provider [phone] Encounter Details Date Type Department Care Team [...] PM EST Office Visit Cardiology at [address] [place] [id number] Neftali Ernandez MD [facility] [place] [address] documented as of this encounter Visit Diagnoses Not on filedocumented in this encounter Care Teams Needle Board Repairer Relationship Specialty Start Date End Date Vanessa Christian APRN PCP - General Family Medicine 10/21/23 05/26/24 documented as of this encounter
--- OUTSIDE RECORDS SUMMARY | 2024-06-03 08:16 | XMS_ITS | Encounter Summary ---
Author Organization [facility] Address [facility] [address] [place] [address] Care Team Providers Care Appliance Parts Counter Clerk Name Role Phone Vanessa Christian MAURI Primary Care Provider [phone] Reason for Referral * Consultation (Routine) - Closed Specialty Diagnoses / Procedures Referred By Contac t Referred To Contact Cardiac Surgery Diagnoses Nonrheumatic aortic valve stenosis significant - TAVR ( defers to Card Surg d/t age) Errol Loya MD [facility] [place] [address] Zak Farmer MD [facility] [place] [address] Referral ID Status Reason Start Date Expiration Date V isits Requested Visits Authorized [id number] Closed Consult, Test & Treat 10/21/2023 10/20/2024 1 1 Reason for Visit * Reason Comments Chest Pain Shortness of Breath Aortic Stenosis Encounter Details Date Type Department Care Team (Late st Contact Info) Description 10/21/2023 1:20 PM EST Office Visit Cardiology at [address] [address] Errol Loya MD [facility] [place] [address] Nonrheumatic aortic valve stenosis Social History Tobacco [...] Problem List Diagnosis Aortic stenosis 12/2022 TTE ([facility]): VITA 0.8-0.9 cm2 (MG 28 mmHg, DOI 3.6 m/s, SVI 35 cc/m2). Trace regurgitation. Normal bi-v s/f, no other valve findings Gastroesophageal reflux Nevus of face Right confucianism Hypertension HLD (hyperlipidemia) MEDICATIONS: Current Outpatient Medications [...] meantime will refer to T at [facility] for further evaluation. Logistics and preliminary review [...] meantime will refer to T at [facility] for further evaluation. Logistics and preliminary review [...] 3:00 PM EST Office Visit Cardiology at [address] [place] [phone] Errol Loya MD [facility] [place] [address] Scheduled Referrals Name Type Priority Associated Diagnoses Order Schedule Amb Referral to Structural Heart Outpatient Referral Routine Nonrheumatic aortic valve stenosis Ordered: 10/21/2023 documented as of this encounter Visit Diagnoses Diagnosis Nonrheumatic aortic valve stenosis Aortic valve disorders documented in this encounter Care Teams Appliance Parts Counter Clerk Relationship Specialty Start Date End Date Vanessa Christian APRN PCP - General Family Medicine 10/21/23 05/26/24 documented as of this encounter
--- OUTSIDE RECORDS SUMMARY | 2024-06-03 08:16 | XMS_ITS | Encounter Summary ---
[place] [address] Care Team Providers Care Catalogue Librarian Name Role Phone Victor M Lafleur MD Primary Care Provider [phone] Reason for Visit * Reason Onset Date Comments Referral 09/20/2023 Encounter Details Date Type Department Care Team (Late st Contact Info) Description 09/20/2023 Telephone Cardiology at [address] [address] Karen Billy, triple valve tester Social History Tobacco Use Types Packs/Day Years [...] PM EST Office Visit Cardiology at [address] [place] [address] Neftali Ernandez MD [facility] [place] [address] documented as of this encounter Visit Diagnoses Not on filedocumented in this encounter Care Teams Catalogue Librarian Relationship Specialty Start Date End Date Victor M Lafleur MD PCP - General 10/02/13 10/20/23 documented as of this encounter
--- OUTSIDE RECORDS SUMMARY | 2024-06-03 08:16 | XMS_ITS | Encounter Summary ---
Author Organization [facility] Address [facility] [place] [address] Care Team Providers Care Fish Housekeeper Name Role Phone Vanessa Christian MAURI Primary Care Provider [phone] Reason for Visit * Consultation (Routine) - Closed Specialty Diagnoses / Procedures Referred By Contac t Referred To Contact Cardiac Surgery Diagnoses Nonrheumatic aortic valve stenosis significant - TAVR ( defers to Card Surg d/t age) Neftali Ernandez MD [facility] [place] [address] Zak Farmer MD [facility] [place] [address] Referral ID Status Reason Start Date Expiration Date V isits Requested Visits Authorized [id number] Closed Consult, Test & Treat 10/21/2023 10/20/2024 1 1 Encounter Details Date Type Department Care Team (Late st Contact Info) Description 01/09/2024 1:40 PM EDT Office Visit [place] [address] Zak Farmer MD [facility] [place] [address] Nonrheumatic aortic valve stenosis Social [...] office. Best personal regards, Zak Farmer MD [phone] In aggregate 55 minutes were spent evaluating [...] PM EST Office Visit Cardiology at [address] [place] [phone] Neftali Ernandez MD [facility] [place] [address] documented as of this encounter Results * [...] please contact the health home health care respiratory therapist that requested your imaging first. ? Narrative [...] questions please contactthe health home health care respiratory therapist that requested your imaging first. Zak Farmer MD IMG DX ORDERABLES * Basic Metabolic Panel (non-fasting) (01/09/2024 2:58 PM EDT) Glucose 102 65 - 199 mg/dL [facility] Comment:Diabetes: >=200 mg/d L plus symptoms Blood Urea Nitrogen 15 10 - 20 mg/dL [facility] Creatinine 0.94 0.80 - 1.50 mg/dL [facility] Sodium 137 135 - 145 mmol/L [facility] Potassium 4.5 3.5 - 5.0 mmol/L [facility] Comment: Please note: ??Patients with WBC >100,000 may have falsely elevated Potassium levels. ??For accurate Potassium quantification in these patients send serum separator tube (gold top) for subsequent determinations. ??Contact the Clinical Chemistry Laboratory if there are any questions. Chloride 103 98 - 107 mmol/L [facility] Carbon Dioxide 27 22 - 31 mmol/L [facility] Anion Gap 7 5 - 15 mmol/L [facility] Calcium 9.5 8.5 - 10.5 mg/dL [facility] Est Glomerular Filtration Rate 91 >=60 mL/min/1. 73 m?? [facility] [...] MD CHEMISTRY ORDERABLE S [facility] [place] [address] * Hepatic Function Panel (01/09/2024 2:58 PM EDT) Pathologist [facility] Protein, Total 6.7 6.1 - 8.0 g/dL [facility] Albumin 4.5 3.2 - 5.2 g/dL [facility] Aspartate Aminotransferase 21 0 - 39 unit/L [facility] Alanine Aminotransferase 21 0 - 55 unit/L [facility] Alkaline Phosphatase 81 40 - 130 unit/L [facility] Bilirubin, Total 0.7 0.2 - 1.3 mg/dL [facility] Bilirubin, Direct 0.2 0.0 - 0.3 mg/dL [facility] Blood 01/09/2024 2:58 PM EDT 01/09/2024 3:03 PM EDT Narrative Resulting Agency Comment Spec In Lab Zak Farmre MD CHEMISTRY ORDERABLE S Performing Organization Address [facility] Co de Phone Number [facility] [place] [address] * Prothrombin Time (01/09/2024 2:58 PM EDT) [facility] Prothrombin Time 10.6 9.4 - 12.5 sec [facility] International Normalization Ratio 0.9 [facility] Comment: An INR <2.0 indicates [...] ORDERABL ES Performing Organization Address [facility]/ZIP Co de Phone Number [facility] [place] [address] * Type and Screen Future Surgery, [facility] [place] [place] SAME DAY PROGRAM ONLY) (01/09/2024 2:58 PM EDT) ABORH Type O NEGATIVE [facility] Patient BB History Not Found [facility] Expires at [id number] on: 02-20-2024 [facility] Ab Screen Interp Negative [facility] Blood 01/09/2024 2:58 PM EDT 01/09/2024 2:58 PM EDT Narrative Resulting Agency Comment Spec In Lab Zak Farmer MD BLOOD BANK LAB [facility] Organization Address City/State/ZIP Co de Phone Number [facility] [place] [address] documented in this encounter Visit Diagnoses Diagnosis Nonrheumatic aortic valve stenosis Aortic valve disorders Nonrheumatic aortic valve stenosis Aortic valve disorders documented in this encounter Care Teams Fish Housekeeper Relationship Specialty Start Date End Date Vanessa Christian APRN PCP - General Family Medicine 10/21/23 05/26/24 documented as of this encounter
--- OUTSIDE RECORDS SUMMARY | 2024-06-03 08:16 | XMS_ITS | Encounter Summary ---
Author Organization [facility] [place] [address] Care Team Providers Care Senior Software Analyst Name Role Phone Vanessa Christian APRN Primary Care Provider [phone] Encounter Details Date Type Department Care Team (Late st Contact Info) Description 10/21/2023 Abstract Cardiology at [address] [phone] Adam Mayes RN Social History Tobacco Use [...] 3:00 PM EST Office Visit Cardiology at [address] [address] Neftali Ernandez MD [facility] [place] [address] documented as of this encounter Visit Diagnoses Not on filedocumented in this encounter Care Teams Senior Software Analyst Relationship Specialty Start Date End Date Vanessa Christian APRN PCP - General Family Medicine 10/21/23 05/26/24 documented as of this encounter
--- OUTSIDE RECORDS SUMMARY | 2024-06-03 08:16 | XMS_ITS | Encounter Summary ---
Author Organization [facility] [place] [address] Care Team Providers Care Communications Supervisor Name Role Phone Vanessa Christian APRN Primary Care Provider [phone] Encounter Details Date Type Department Care Team [...] PM EST Office Visit Cardiology at [address] [place] [phone] Neftali Ernandez MD [facility] [place] [address] documented as of this encounter Visit Diagnoses Not on filedocumented in this encounter Care Teams Communications Supervisor Relationship Specialty Start Date End Date Vanessa Christian APRN PCP - General Family Medicine 10/21/23 05/26/24 documented as of this encounter
--- OUTSIDE RECORDS SUMMARY | 2024-06-03 08:16 | XMS_ITS | Encounter Summary ---
Author Organization [facility] [place] [address] Care Team Providers Care Manager Completions Name Role Phone Vanessa Christian Lane DOTSON Primary Care Provider Encounter Details Date Type Department Care Team (Late st Contact Info) Description 01/09/2024 2:30 PM EDT Clinical Support Same Day at [facility] [place] [phone] Social History Tobacco Use Types Packs/Day Years Used Date Smoking Tobacco: Former Cigarettes Smokeless Tobacco: Never Comments:Quit 15 + years ago Alcohol Use Standard Drinks/Week Comments Yes 0 (1 standard drink = 0.6 oz pur e alcohol) rare [facility] Inpatient Questions Answer Date Recorded Prevent [...] you tube link for a video about [facility] cardiac surgery. Instructed to bring the booklet [...] type and screen performed while in the [facility]. Sent to Radiology for chest x-ray. Special medication instructions: None Procedure date: not booked. Darian documented in this encounter Plan of Treatment Upcoming Encounters Date Type Department Care Team (Late st Contact Info) Description 11/30/2024 3:00 PM EST Office Visit Cardiology at [address] [place] [address] Neftali Ernandez MD [facility] [place] [address] documented as of this encounter Visit Diagnoses Not on filedocumented in this encounter Care Teams Manager Completions Relationship Specialty Start Date End Date Vanessa Christian APRN PCP - General Family Medicine 10/21/23 05/26/24 documented as of this encounter
--- OUTSIDE RECORDS SUMMARY | 2024-06-03 08:16 | XMS_ITS | Encounter Summary ---
Author Organization [facility] [place] [address] Care Team Providers Care Truck Dock Material Mover Name Role Phone Vanessa Christian APRN Primary Care Provider [phone] Encounter Details Date Type Department Care Team (Late st Contact Info) Description 12/26/2023 Notes Only Cardiology at [address] [address] Neftali Ernandez MD [facility] [place] [address] Social History Tobacco Use Types Packs/Day Years [...] PM EDT Echocardiogram images reviewed from [facility]. Indeed, the aortic valve appears severely stenotic. Cannotrule out bicuspid valve documented in this encounter Plan of Treatment Upcoming Encounters Date Type Department Care Team (Late st Contact Info) Description 11/30/2024 3:00 PM EST Office Visit Cardiology at [address] [phone] Neftali Ernandez MD [facility] [place] [address] documented as of this encounter Visit Diagnoses Not on filedocumented in this encounter Care Teams Truck Dock Material Mover Relationship Specialty Start Date End Date Vanessa Christian APRN PCP - General Family Medicine 10/21/23 05/26/24 documented as of this encounter
--- OUTSIDE RECORDS SUMMARY | 2024-06-03 08:16 | XMS_ITS | Encounter Summary ---
Author Organization [facility] [place] [address] Care Team Providers Care Diagrammer And Seamer Name Role Phone Vanessa Christian APRN Primary Care Provider [phone] Encounter Details Date Type Department Care Team (Late st Contact Info) Description 10/21/2023 Abstract Cardiology at [address] [place] [phone] Adam Mayes RN Social History Tobacco Use [...] 3:00 PM EST Office Visit Cardiology at [address] [place] [address] Neftali Ernandez MD [facility] [address] documented as of this encounter Visit Diagnoses Not on filedocumented in this encounter Care Teams Diagrammer And Seamer Relationship Specialty Start Date End Date Vanessa Christian APRN PCP - General Family Medicine 10/21/23 05/26/24 documented as of this encounter
--- OUTSIDE RECORDS SUMMARY | 2024-06-05 08:20 | XMS_ITS | Encounter Summary ---
Author Organization [facility] Address [facility] [place] [address] Care Team Providers Care Extruder Operator Helper Name Role Phone Vanessa Christian MAURI Primary Care Provider [phone] Encounter Details Date Type Department Care Team [...] PM EST Office Visit Cardiology at [address] [phone] Neftali Ernandez MD [facility] [place] [address] documented as of this encounter Visit Diagnoses Not on filedocumented in this encounter Care Teams Extruder Operator Helper Relationship Specialty Start Date End Date Vanessa Christian APRN PCP - General Family Medicine 10/21/23 05/26/24 documented as of this encounter
--- OUTSIDE RECORDS SUMMARY | 2024-06-05 08:20 | XMS_ITS | Encounter Summary ---
Author Organization [facility] Address [address] [place] [address] Care Team Providers Care Supervisor Post Wave Name Role Phone Vanessa Christian Lane MONCADA Primary Care Provider [phone] Encounter Details Date Type Department Care Team (Late st Contact Info) Description 10/24/[address] [facility] Pathology & Laboratory Medicine - [address] [address] Oscar Nichole MD [address] [place] [phone] Factitial dermatitis Social History Tobacco Use Types [...] if applicable. 10/28/2023 11:24 EST [facility] Final Diagnosis A. SKIN OF UATSDIN, LEFT, SHAVE BIOPSY: - Seborrheic keratosis, pigmented. 10/28/2023 11:24 EST [facility] Attestation By the signature below, the attending physician certifies that they have 1) personally conducted a gross and/or microscopic examination of the described specimen(s), and/or personally interpreted the results of laboratory testing of the described specimen(s), and 2) personally rendered or confirmed the above diagnosis. 10/28/2023 11:24 [facility] at [address] Microscopic Description The stratum corneum is thickened by compact and basketweave orthokeratosis with formation of horn pseudocysts. The epidermis is acanthotic with formation of broad and anastomosing trabeculae. The trabeculae are composed of basaloid keratinocytes with round uniform nuclei. The keratinocytes have a variable amount of melanin pigment. 10/28/2023 11:24 [facility] Clinical History Pigmented 2 cm patch; clinical diagnosis code: L98.1 10/28/2023 11:24 [facility] Gross Description A. Received in formalin labelled with proper patient identification (initials P, A) and left latter day is a shave biopsy of an irregular [...] A3. Nora Anderson 10/25/2023 8:47 10/28/2023 11:24 [facility] Performing Lab [facility] 10/28/2023 11:24 [facility] Scanned Images 10/28/2023 11:24 [facility] Tissue SPECIMEN FROM SKIN / Unknown 10/24/2023 14:30 EST 10/24/2023 22:04 EST Oscar Nichole MD PATHOLOGY ORDERABLES [facility] [address] [place] [address] documented in this encounter Visit Diagnoses Diagnosis Factitial dermatitis Dermatitis factitia (artefacta) documented in this encounter Care Teams Supervisor Post Wave Relationship Specialty Start Date End Date Vanessa Christian NP [address] [place] [address] PCP - General Family Medicine - Primary Care 10/07/23 documented as of this encounter
--- OUTSIDE RECORDS SUMMARY | 2024-06-05 08:20 | XMS_ITS | Encounter Summary ---
Author Organization [facility] Address [facility] [place] [address] Care Team Providers Care Tub Operator Name Role Phone Vanessa Christian MAURI Primary Care Provider [phone] Encounter Details Date Type Department Care Team (Latest Contact Info) Description 03/12/2024 1:30 PM EDT - 03/12/2024 11:59 PM EDT Hospital Encounter XRay at [address] [place] [address] Coronary artery disease, unspecified vessel or lesion type, unspecified whether angina present, unspecified whether [place] or transplanted heart Discharge Disposition: Home Social History Tobacco Use Types Packs/Day Years Used Date Smoking Tobacco: Former Cigarettes Smokeless Tobacco: Never Comments:Quit 15 + years ago Alcohol Use Standard Drinks/Week Comments Yes 0 (1 standard drink = 0.6 oz pur e alcohol) rare [facility] Utilities Answer Date Recorded In the past 12 months has e [place], gas, oil, or water [employer] threatened to shut off services in your [...] PM EST Office Visit Cardiology at [address] [place] [address] Neftali Ernandez MD [facility] [place] [address] documented as of this encounter Procedures Procedure Name Priority Date/Time Associated Diagnosis Comments XR CHEST PA AND LATERAL Routine 03/12/2024 1:42 PM EDT Coronary artery disease, unspecified vessel or lesion type, unspecified whether angina present, unspecified whether [place] or transplanted heart documented in this encounter Results * XR Chest PA & Lateral (Generic) (03/12/2024 1:42 PM EDT) WORKSTATION ID [id number] RAD Anatomical Region Laterality Modality Chest N/A [...] who have questions please contact the health cardiac care nurse that requested your imaging first. ? Electronically signed by: Augie Sanchez MD, [facility] ([phone]), at 03/13/2024 8:28 AM Narrative 03/13/2024 8:28 AM EDT EXAMINATION: XR CHEST PA AND LATERAL (GENERIC) CLINICAL HISTORY: s/p cabg eval effusions I25.10, Atherosclerotic heart disease of [place] coronary artery without angina pectoris TECHNIQUE: PA [...] eval effusions I25.10, Atherosclerotic heart disease of [place] coronary artery withoutangina pectoris TECHNIQUE: PA and [...] patients who have questions please contactthe health cardiac care nurse that requested your imaging first. Electronically signed by: Augie Sanchez MD, [facility]([phone]), at 03/13/2024 8:28 AM Zak Farmer MD IMG DX ORDERABLES documented in this encounter Visit Diagnoses Diagnosis Coronary artery disease, unspecified vessel or lesion type, unspecified whether angina present, unspecified whether [place] or transplanted heart documented in this encounter Care Teams Tub Operator Relationship Specialty Start Date End Date Vanessa Christian, MAURI PCP - General Family Medicine 10/21/23 05/26/24 documented as of this encounter
--- OUTSIDE RECORDS SUMMARY | 2024-06-05 08:20 | XMS_ITS | Encounter Summary ---
[place] [address] Care Team Providers Care Archives Specialist Name Role Phone Aparna Jordan MAURI Primary Care Provider [phone] Reason for Referral * Diagnostic Test (Routine) - New Request Specialty Diagnoses / Procedures Referred By Contac t Referred To Contact Cardiology Diagnoses S/P AVR Procedures Echocardiogram Transthoracic Neftali Menon PA [facility] [place] [address] [facility] [place] [address] Referral ID Status Reason Start Date Expiration Date Visits Requested Visits Authorized [id number] New Request Specialty Service Requested 02/24/2024 02/23/2025 1 1 * Consultation (Routine) - Authorized Specialty Diagnoses / Procedures Referred By Contac t Referred To Contact Cardiology Diagnoses S/P AVR Hayder Graham MD [facility] [place] [address] Cardiac Rehab, [facility] [address] [place] [address] [place] [address] Referral ID Status Reason Start Date Expiration Date Visits Requested Visits Authorized [id number] Authorized Consult, Test & Treat 02/24/2024 08/22/2024 36 36 * Home Health Care (Routine) - Authorized Specialty Diagnoses / Procedures Referred By Sixto mendoza Referred To Contact Diagnoses S/P AVR Hayder Graham MD [facility] [place] [address] Referral ID Status Reason Start Date Expiration Date Visits Requested Visits Authorized [id number] Authorized Consult, Test & Treat 02/24/2024 08/22/2024 [...] ARTERIAL GRAFT (WRVU 7.93) Hayder Graham MD [facility] [place] [address] [facility] Referral ID Status Reason Start Date Expiration Date Visits Re quested Visits Authorized [id number] 1 1 Encounter Details Date Type Department Care Team (Latest Contact Info) Description 02/17/2024 5:43 AM EDT - 02/24/2024 11:23 AM EDT Hospital Encounter Heart and Vascular Unit Level 4 [place] [address] Hayder Graham MD [facility] [place] [address] S/P AVR (Primary Dx); Aortic valve stenosis, [...] Patient Age: 63 y.o. Birthdate: 1960 Language: Cambodian Race: White Ethnicity: Not nor Admit Date: 02/17/2024 Discharge Date: 02/24/24 Attending Physician: Hayder Graham MD Follow-up Recommendations for Providers: Please continue routine management of cardiovascular risk factors including blood pressure, lipids,glucose, etc. Please note any changes to medications. Patient to follow up with PCP, Aparna Jordan APRN, in 1-2 weeks. Patient to follow up with Director Advanced, Neftali Ernandez MD , in 2 weeks. Patient to follow up with Cardiac Surgeon, Dr. Hayder Graham, with a chest x-ray, EKG, and Echo. Inpatient Provider Contact Information: [facility] Section of Cardiac Surgery [facility] [address] FAX [phone] Discharge Diagnoses (Hospital Problems) Primary Diagnoses: /CAD [...] Hypertension 08/14/2023 Nevus of face 09/26/2023 Right religious Past Surgical History: Procedure Laterality Date PRO CABG, ARTERIAL, SINGLE N/A 02/17/2024 @CABG, USING ARTERIAL GRAFT;SINGLE ARTERIAL GRAFT (WRVU 33.75) performed by Hayder Graham MD at [facility] MAIN OR PRO CABG, ARTERY-VEIN, TWO N/A 02/17/2024 @CABG, TWO VENOUS GRAFTS & ARTERIAL GRAFT (WRVU 7.93) performed by Hayder Graham MD at [facility] MAIN OR PRO ENDOSCOPY W/VIDEO-ASST VEIN HARVEST, CABG Left 02/17/2024 ENDOSCOPIC HARVEST VEIN(S) FOR CABG (WRVU 0.31) performed by Hayder Graham MD at [facility] MAIN OR PRO REPLACEMENT PROSTHETIC AORTIC VALVE OPEN W CARDIOPULMONARY BYPASS HOMOGRF/STENT N/A 02/17/2024 @REPLACE AORTIC VALVE, OPEN, W\CPB, W\PROSTHETIC VALVE (WRVU 41.32) performed by Hayder Graham MD at [facility] MAIN [...] insufficiency. He has glaucoma. He used to [place] until about 15 years ago. He has undergone prior herniorrhaphy. 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 Major Procedures/Operations: 02/17/24 s/p avr/cabgx3 CABG x 3 JOSE->LAD SVG->dRCA SVG->OM1 EVH from LLE AVR with a 23 mm Inspiris Bioprosthesis Hospital Course: Karlos Garcia was admitted to [facility] on 02/17/2024 via the Same [...] Hayder Graham and/or the Cardiac Surgery Physician Steamer Gum Candy Team may be reached at . Antibiotic [...] Dr. Hayder Graham. You may use a [place] Track or treadmill but avoid any pulling [...] friends, go to a movie, go to druze, etc. Heavy activities: No hunting, skiing, jogging, [...] while being managed by your PCP and/or Director Advanced. For future medication refills, please refer to your PCP and/or Director Advanced after your discharge from our service. Thank you REMOVE CHEST TUBE SUTURES ON OR AFTER 03/02/24 Home oxygen therapy: N/A Follow up appointments: You should follow up with your PCP, Aparna Jordan APRN, in 1-2 weeks. Our office will schedule an appointment with your Director Advanced, Neftali Ernandez MD , in 2 weeks. [...] Future Orders Complete By Expires Echocardiogram Transthoracic [82867 CPT(R)] 03/26/2024 09/25/2024 Process Instructions: Scheduling Instructions: Questions: Where will study be performed?: [facility] Does the patient have Congenital Heart Disease?: Does patient require sedation?: Sedation rationale: XR Chest PA & Lateral (Generic) [73298 41450 Custom] 03/26/2024 09/25/2024 Process Instructions: Scheduling Instructions: Questions: Portable exam?: Reason for exam and clinical history: s/p avr/cabg Clinical information / jerome questions for radiologist: Stat read required?: Date of injury if applicable: Requested Time: Where will study be performed?: [facility] Radiology Referral to Cardiac Rehab [DNZ113 Custom] As directed Process Instructions: If no [...] admission to Home Health. [address] Phone Number: Date of : 1960 Inpatient DOCUMENTATION FOR VNA SERVICES (INCLUDING THOSE PATIENTS WITH MEDICARE COVERAGE REQUIRING HOME VNA SERVICES AND/OR HOSPICE SERVICES) PATIENT'S LOCATION: Karlos Garcia [address] [facility] [phone] Activities Therapist's Name: self/family In discussion with the attending physician, it is certified that this patient is under their care and that they, or a Nurse Practitioner, or Physician Steamer Gum Candy who is working directly with them, hada [...] for services as follows: HOME HEALTH AGENCY: [facility] [address] [place] [address] RN orders: Cardiopulmonary assessment, incisional assessment, assess [...] issues please call the Cardiology Office at [phone] FOR MEDICARE ONLY: (please delete this section [...] APRN [address] / [place] [address] . All VNA agencies which cover the area of patient's residence have been reviewed, either verbally or in writing, and patient/family have chosen the home health care agency noted. Questions: Disciplines Requested: Nursing Physical Therapy Arrangements for VNA/home care: As above. Signed: NEFTALI MENON PA-C [facility] Section of Cardiac Surgery [facility] [address] FAX [phone] Date: 02/24/2024 CC: Aparna Jordan, MAURI Jordan, Aparna Sherman APRN [address] [place] [address] documented in this encounter Discharge Instructions * [...] Hayder Graham and/or the Cardiac Surgery Physician Steamer Gum Candy Team may be reached at . Antibiotic [...] Dr. Hayder Graham. You may use a [place] Track or treadmill but avoid any pulling [...] friends, go to a movie, go to druze, etc. Heavy activities: No hunting, skiing, jogging, [...] while being managed by your PCP and/or Director Advanced. For future medication refills, please refer to your PCP and/or Director Advanced after your discharge from our service. Thank you REMOVE CHEST TUBE SUTURES ON OR AFTER 03/02/24 Home oxygen therapy: N/A Follow up appointments: You should follow up with your PCP, Aparna Jordan APRN, in 1-2 weeks. Our office will schedule an appointment with your Director Advanced, Neftali Ernandez MD , in 2 weeks. [...] 0600 and on the weekends please page [phone]. * Eric Barahona PA - 02/23/2024 9:27 [...] 0600 and on the weekends please page [phone]. * Tiffanie Owens - 02/22/2024 2:48 PM [...] d/c for 10 days. 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 * Kelley Hinson, BARRELHEAD INSPECTOR - 02/21/2024 10:15 AM EDT Physical Therapy [...] d/c for 10 days. 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 * Kelley Hinson PTA - 02/20/2024 3:32 PM EDT 02/20/24 9041 Evaluation & Treatment Document Type contact Total Minutes, Physical Therapy 0 Comment, Session Not Performed Checked in w/ pt this PM for ongoing PT services, pt politely declined, stating he had been dealing w/ nausea all day, made plan to see him tomorrow morning, will f/u at that time Kelley Hinson PTA Pager: [phone] Physical Therapy Inpatient Rehab Department * Louisa [...] 0600 and on the weekends please page [phone]. * Maris Benavides, PT - 02/19/2024 11:22 [...] d/c for 10 days. 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 Precautions/Special Considerations: [...] outlined inthis evaluation. MARIS BENAVIDES, PT Pager: [phone] Physical Therapy Inpatient Rehabilitation Department Time IN / OUT: 5917-7001 Total Time: 38 (eval) minutes; * Antonio [...] 0600 and on the weekends please page [phone]. * Minnie Begum PA - 02/18/2024 8:25 [...] site CDI with SANJANA wrap Tubes/Lines/Drains: RIJ/PAC, [place], Jacky Ctx, L pleural CT, TPW, Delaney [...] 0600 and on the weekends please page [phone]. * Kim Ha RCP - 02/17/2024 2:25 [...] plan since last visit. Hayder Graham MD [phone] Source Note - Hayder Graham MD - [...] insufficiency. He has glaucoma. He used to [place] until about 15 years ago. He has [...] given written informed consent. Hayder Graham MD [phone] * Hayder Graham MD - 02/17/2024 7:00 [...] given written informed consent. Hayder Graham MD [phone] documented in this encounter Miscellaneous Notes * [...] information for follow-up Home Health & Hospice, [address] [place] [address] Cardiac Rehab, [address] [place] [address] Transportation: family or friend will provide Functional status prior to admission: Independent Home Environment: Others in the home: alone. Current Living Arrangements: home/apartment/condo. Accessibility Concerns:a few steps to enter 1 floor home. Current Functional Ability: Assistive Person and Equipment DME used at home: none DME Needed at Discharge: N/A Patient is insured through: Primary Insurance: [facility] Payor: [facility] / Plan: [facility] PPO / Product Type: *No Product type* [...] pain managed with scheduled Tylenol. Worked with [employer]. Ambulated in the roque multiple times during [...] anticipated Patient is insured through: Primary Insurance: [employer] Payor: [employer] / Plan: [facility] PPO / Product Type: *No Product type* / Secondary Insurance: N/A Last Physical Therapy Recommendation: home with home health (Str coming to stay for a week or two upon d/c) with to be determined (owns rolling walker, shower seat) Plan for discharge is: Home w/ Services Outpatient Agency/Support Group Needs: Homecare agency Home Health Services: Physical Therapy, Registered Nurse Agency Referrals: [facility]. [address] [place] [id number] Transportation: family or friend will provide Barriers to discharge: Discharge planning Plan going forward: Service Care Management will continue to follow and assist with discharge planning and coordination of care as indicated. Anticipated Date of Discharge: 02/22/2024 Rhett Bell RN RN/CM - Cellphone: [phone] Pager: [phone] Covering Service RN/CM * Plan of Care [...] Yang RN - 02/19/2024 10:44 AM EDT [facility] Karlos Garcia was seen today [...] Hypertension 08/14/2023 Nevus of face 09/26/2023 Right religious Hospitalizations Within the Past 30 Days: no previous admission in last 30 days Current Decision-Making Capacity: Self If AD's have not been completed the following surrogate would be surrogate decision maker per [place] surrogate decision making law. (Only good for 180 days) Any patient receiving care in [place] must abide by [place] law. The hierarchy [...] The agent with financial power of civil attorney or a conservator appointed in accordance [...] steady place to sleep or slept in [facility] (including now)?: No In the past 12 months has the [employer], gas, oil, or water Taxi 24/7 threatened to shut off services in your [...] as: [address] [facility] [address] Physical address: [address] [facility], [address] Social & Family Supports: All names listed [...] Information: none noted Health/Prescription Coverage: Primary Insurance: [facility] Payor: [facility] / Plan: [facility] PPO / Product Type: *No Product type* / Secondary Insurance: N/A ; Prescription Coverage: Yes Preferred Pharmacy: [id number] AT [address] [address] Status: Patient is a : No Primary Care Provider confirmed: Aparna Jordan, MINING MANAGER [phone] Patient/Caregiver Goals of Treatment: dc to home Potential Needs for Transition of Care: home health care Agency Referrals: I have met with the patient to: discuss discharge planning needs. provide the [facility], Office of Care Management letter from the Agent Licensing Clerk pertaining to rehab referrals. provide a letter describing our affiliations within the [facility] and educate about their right to choose where referrals are sent. provide a list of Home Health Agencies / Durable Medical Equipment vendors which serve their preferred geographic area. provided patient with [facility] Star Quality Rating handout. They have requested referrals to: [facility] [address] [place] [address] Note routed to a [employer] Machine Tender who will communicate referrals to facilities and [...] Reina Greene RN CM, BSN, CMGT- Ext [phone] * Plan of Care - Binta Trinidad [...] Operative Note Patient Name: Karlos Garcia : [id number] MR#: [id number] Case Date: 02/17/2024 Surgeon: Surgeon(s) and Role: * Hayder Graham MD - Primary * Neftali Menon PA - Physician Steamer Gum Candy Preoperative diagnosis: CAD Postoperative diagnosis: CAD, intraoperative [...] mL Drains: Mediastinal and Left pleural Disposition: [facility] Condition: doing well without problems Attestation: Case Date: 02/17/2024 I performed this procedure without the involvement of a resident. HAYDER GRAHAM MD 02/17/2024 * Op Note - Hayder Graham MD - 02/17/2024 8:20 AM EDT [facility] Operative Note Patient Name: Karlos Garcia : [id number] MR#: [id number] Case Date: 02/17/2024 Surgeon: Surgeons and Role: * Hayder Graham MD - Primary * Neftali Menon PA - Physician Steamer Gum Candy Preoperative diagnosis: CAD Postoperative diagnosis: CAD, intraoperative [...] mL Drains: Mediastinal and Left pleural Disposition: [facility] Procedure Description: The patient was brought to [...] 3:00 PM EST Office Visit Cardiology at [address] [place] [address] Neftali Ernandez MD [facility] [place] [address] Scheduled Orders Name Type Priority Associated Diagnoses [...] Aortic Valve Open W Cardiopulmonary Bypass Homogrf/Stent (07256) Yes 02/17/2024 7:28 AM EDT CAD Cabg, Artery-Vein, Two (18234) Yes 02/17/2024 7:28 AM EDT CAD Cabg, Arterial, Single (78466) Yes 02/17/2024 7:28 AM EDT CAD Endoscopy W/Video-Asst Vein [place], Cabg (91228) Yes 02/17/2024 7:28 AM EDT CAD POCT [...] CHEMISTRY ORDERABLE S [facility] [place] [address] * (ABNORMAL) Basic Metabolic Panel (non-fasting) (02/23/2024 [...] MD CHEMISTRY ORDERABLES [facility] [place] [address] * Potassium (02/22/2024 4:30 AM EDT) Potassium [...] CHEMISTRY ORDERABLE S [facility] [place] [address] * (ABNORMAL) Basic Metabolic Panel (non-fasting) (02/21/2024 [...] Carpio MD CHEMISTRY ORDERABLES Performing Organization Address City/[facility]/ZIP Co de Phone Number [facility] [place] [address] * Lactate, whole blood, send to lab ([facility]) (02/21/2024 9:45 AM EDT) [facility] Lactate WB 2.0 0.5 - 2.2 mmol/L [facility] Blood 02/21/2024 9:45 AM EDT 02/21/2024 9:52 AM EDT Narrative Resulting Agency Comment Spec In Lab Hayder Graham MD CHEMISTRY ORDERABLE S Performing Organization Address City/[facility]/ZIP Co de Phone Number [facility] [place] [address] * (ABNORMAL) Hepatic Function Panel (02/21/2024 9:45 AM EDT) [facility] Protein, Total 5.7(L) 6.1 - [...] MD CHEMISTRY ORDERABLE S Performing Organization Address City/[facility]/ZIP Co de Phone Number [facility] [place] [address] * Lipase (02/21/2024 9:45 AM EDT) Lipase 56 0 - 60 unit/L [facility] Blood 02/21/2024 9:45 AM EDT 02/21/2024 9:52 AM EDT Narrative Resulting Agency Comment Spec In Lab Hayder Graham MD CHEMISTRY ORDERABLE S Performing Organization Address [facility] Co de Phone Number [facility] [place] [address] * Amylase (02/21/2024 9:45 AM EDT) Amylase 69 28 - 100 unit/L [facility] Blood 02/21/2024 9:45 AM EDT 02/21/2024 9:52 AM EDT Narrative Resulting Agency Comment Spec In Lab Hayder Graham MD CHEMISTRY ORDERABLE S Performing Organization Address [facility] Co de Phone Number [facility] [place] [address] * Potassium (02/21/2024 3:08 AM EDT) Potassium [...] CHEMISTRY ORDERABLE S [facility] [place] [address] * XR Chest PA & Lateral (Generic) (02/20/2024 10:19 AM EDT) WORKSTATION ID [id number] RAD Anatomical Region Laterality Modality Chest N/A Digital Radiogra phy Impressions 02/20/2024 1:11 PM EDT Small pleural effusions. No pneumothorax Thank you for letting us participate in the care of this patient. ??If you are a health care provider and have any questions regarding this report, please contact the number below. ??For patients who have questions please contact the health managed care specialist that requested your imaging first. ? Narrative 02/20/2024 1:11 PM EDT EXAMINATION: XR CHEST PA AND LATERAL (GENERIC) CLINICAL HISTORY: s/p AVR/CABGx3 TECHNIQUE: PA and lateral views of the chest COMPARISON: 02/17/2024 FINDINGS: Support devices: Interval removal of Trenary-Kaila catheter, endotracheal tube and mediastinal chest tubes The cardiac silhouette is stable status post median sternotomy, CABG and aortic valve replacement. There are small pleural effusions. No pneumothorax. Procedure Note Rogerio Cruz MD - 02/20/2024 EXAMINATION: XR CHEST PA AND LATERAL (GENERIC) CLINICAL HISTORY: s/p AVR/CABGx3 TECHNIQUE: PA and lateral views of the chest COMPARISON: 02/17/2024 FINDINGS: Support devices: Interval removal of Trenary-Kaila catheter, endotracheal tubeand mediastinal chest tubes The [...] have questions please contactthe health managed care specialist that requested your imaging first. Hayder Graham MD IMG DX ORDERABLES * Scan, Peripheral Blood (02/20/2024 4:23 AM EDT) Pathologist [facility] [place] estimate Decreased [facility] RBC Morphology Normal [facility] Blood 02/20/2024 4:23 AM EDT 02/20/2024 4:42 AM EDT Narrative Resulting Agency Comment Spec In Lab Minnie FRENCH HEMATOLOGY CECILIO ALEMAN Performing Organization Address City/State/[facility] Co de Phone Number [facility] [place] [address] * (ABNORMAL) Differential, Automated (02/20/2024 4:23 AM EDT) [facility] Neutrophil % 81.7 % [facility] Neutrophil Absolute 10.37(H) 1.70 - 6.10 x10(3)/mc L [facility] Lymph % 7.4 % [facility] Lymphocytes Abs 0.9 0.9 - 3.2 x10(3)/mc L [facility] Monocyte % 9.7 % [facility] Monocyte Abs 1.2(H) 0.3 - 0.9 x10(3)/mc L [facility] Eos % 0.1 % [facility] Eosinophils Abs 0.0 0.0 - 0.4 x10(3)/[facility] Basophil % 0.2 % [facility] Baso Absolute 0.0 0.0 - 0.1 x10(3)/[facility] LAB[facility] Immature Gran % 0.90 % [facility] Comment: Immature granulocytes(IG's)percentage and absolute count will include metamyelocytes, myelocytes, and promyelocytes. Blood smears from CBCs yielding IG's will be scanned manually for concordance. If this scan disagrees with the automated IG or if promyelocytes are noted, a manual differential will be performed. Immature Gran Absolute 0.12(H) 0.00 - 0.04 x10(3)/[facility] Blood 02/20/2024 4:23 AM EDT 02/20/2024 4:42 AM EDT Narrative Resulting Agency Comment Spec In Lab Minnie FRENCH HEMATOLOGY CECILIO ALEMAN [facility] [place] [address] * (ABNORMAL) Hemogram (02/20/2024 4:23 AM EDT) White Blood Cell 12.7(H) 4.0 - 9.5 x10(3)/[facility] Red Blood Cell 4.26(L) 4.58 - 5.54 x10(6)/[facility] Hemoglobin 12.3(L) 13.7 - 16.5 [...] [facility] NRBC% auto 0.0 % [facility] NRBC Absolute 0.000 0.000 - 0.000 x10(3)/mc L [facility] Blood 02/20/2024 4:23 AM EDT 02/20/2024 4:42 AM EDT Narrative Resulting Agency Comment Spec In Lab Minnie FRENCH HEMATOLOGY CECILIO ALEMAN [facility] [place] [place] [address] * (ABNORMAL) Basic Metabolic Panel (non-fasting) (02/20/2024 [...] MD CHEMISTRY ORDERABLE S Performing Organization Address [facility] Co de Phone Number [facility] [place] [address] * Potassium (02/19/2024 3:57 AM EDT) [facility] Potassium 4.3 3.5 - 5.0 mmol/L MAY[facility] [...] MD CHEMISTRY ORDERABLE S Performing Organization Address [facility]/ZIP Co de Phone Number [facility] [place] [address] * POCT Glucose (02/18/2024 8:24 AM EDT) Glucose, POC 157 65 - 199 mg/dL [facility] Comment: Supplemental ranges: <140 mg/dL before meals <180 mg/dL all other times of the day Blood 02/18/2024 8:24 AM EDT 02/18/2024 8:24 AM EDT Hayder Graham MD POINT OF CARE TEST ORDERABLES Performing Organization Address City/[facility]/ZIP Co de Phone Number [facility] [place] [address] * Scan, Peripheral Blood (02/18/2024 1:40 AM EDT) [facility] Plat estimate Decreased [facility] LABORATORY RBC Morphology Normal [facility] Blood 02/18/2024 1:40 AM EDT 02/18/2024 1:56 AM EDT Narrative Resulting Agency Comment Spec In Lab Neftali FRENCH HEMATOLOGY ORDER OLE Performing Organization Address City/[facility]/ZIP Co de Phone Number [facility] [place] [place] [address] * (ABNORMAL) Differential, Automated (02/18/2024 1:40 AM EDT) [facility] Neutrophil % 87.1 % [facility] Neutrophil Absolute 15.03(H) 1.70 - 6.10 x10(3)/mc L [facility] Lymph % 3.0 % [facility] Lymphocytes Abs 0.5(L) 0.9 - 3.2 x10(3)/mc L [facility] Monocyte % 9.1 % [facility] Monocyte Abs 1.6(H) 0.3 - 0.9 x10(3)/mc L [facility] Eos % 0.0 % [facility] Eosinophils Abs 0.0 0.0 - 0.4 x10(3)/mc L [facility] Basophil % 0.2 % [facility] Baso [...] HEMATOLOGY ORDER OLE [facility] [place] [address] * (ABNORMAL) Hemogram (02/18/2024 1:40 AM EDT) [...] [facility] NRBC% auto 0.0 % [facility] NRBC Absolute 0.000 0.000 - 0.000 x10(3)/mc L [facility] Blood 02/18/2024 1:40 AM EDT 02/18/2024 1:56 AM EDT Narrative Resulting Agency Comment Spec In Lab Neftali FRENCH HEMATOLOGY ORDER OLE [facility] [place] [address] * (ABNORMAL) Basic Metabolic Panel (non-fasting) (02/18/2024 [...] CHEMISTRY ORDERABLE S [facility] [place] [place] [address] * (ABNORMAL) Troponin (02/18/2024 1:40 AM EDT) [...] can be found in the [facility] Test Catalog Troponin - [facility] Test Catalog Reference: Fourth [place] Definition of Myocardial Infarction. Journal of the [place] [employer] 2018;72:7557-0846 Blood 02/18/2024 1:40 AM EDT 02/18/2024 1:56 AM EDT Narrative Resulting Agency Comment Spec In Lab Hayder Graham MD CHEMISTRY ORDERABLE S [facility] [place] [place] [address] * POCT Glucose (02/17/2024 8:13 PM EDT) Glucose, POC 142 65 - 199 mg/dL [facility] Comment: Supplemental ranges: <140 mg/dL before meals <180 mg/dL all other times of the day Blood 02/17/2024 8:13 PM EDT 02/17/2024 8:13 PM EDT Hayder Graham MD POINT OF CARE TEST ORDERABLES Performing Organization Address [facility]/ZIP Co de Phone Number [facility] [place] [place] [address] * POCT Glucose (02/17/2024 5:42 PM EDT) Glucose, POC 160 65 - 199 mg/dL [facility] Comment: Supplemental ranges: <140 mg/dL before meals <180 mg/dL all other times of the day Blood 02/17/2024 5:42 PM EDT 02/17/2024 5:42 PM EDT Hayder Graham MD POINT OF CARE TEST ORDERABLES Performing Organization Address City/[facility]/ZIP Co de Phone Number [facility] [place] [place] [address] * Hemoglobin (02/17/2024 5:42 PM EDT) Hemoglobin 13.7 13.7 - 16.5 g/dL [facility] Blood 02/17/2024 5:42 PM EDT 02/17/2024 6:10 PM EDT Narrative Resulting Agency Comment Spec In Lab Hayder Graham MD HEMATOLOGY ORDERABL ES Performing Organization Address [facility] Co de Phone Number [facility] [place] [place] [address] * Potassium (02/17/2024 5:42 PM EDT) Potassium [...] MD CHEMISTRY ORDERABLE S Performing Organization Address [facility] de Phone Number [facility] [place] [address] * (ABNORMAL) BLOOD GAS 2 ARTERIAL (02/17/2024 [...] [facility] PF Ratio Art 195 [facility] Blood 02/17/2024 4:18 PM EDT 02/17/2024 4:18 PM EDT Hayder Graham MD POINT OF CARE TEST ORDERABLES Performing Organization Address City/State/[facility] Co de Phone Number [facility] [place] [place] [address] * XR Chest One View (02/17/2024 1:44 PM EDT) WORKSTATION ID [id number] RAD Anatomical Region Laterality Modality Chest N/A Digital Radiogra phy Impressions 02/17/2024 2:12 PM EDT 1. ??No definite pleural fluid collection or pneumothorax. 2. ??Right IJ Trenary-Kaila catheter tip terminates in a descending branch [...] questions please contact the health managed care specialist that requested your imaging first. ? Narrative 02/17/2024 2:12 PM EDT EXAMINATION: XR CHEST ONE VIEW CLINICAL HISTORY: s/p avr/cabg eval effusions TECHNIQUE: 1 view of the chest COMPARISON: Chest x-ray 01/09/2024, chest CT 02/03/2024 FINDINGS: ET tube tip terminates 5.2 cm above the carlos. Right IJ Trenary-Kaila catheter tip terminates in a descending branch [...] 5.2 cm above the carlos. Right IJ Trenary-Ganzcatheter tip terminates in a descending branch of [...] fluid collection or pneumothorax. 2. Right IJ Trenary-Kaila catheter tip terminates in a descending branch ofthe right pulmonary artery. Suggest catheter retraction. 3. Additional support lines and tubes as above. Thank you for letting us participate in the care of this patient. If youare a health care provider and have any questions regarding this report,please contact the number below. For patients who have questions please contactthe health managed care specialist that requested your imaging first. Hayder [...] MEDICAL CENTER [facility] PF Ratio Art 320 [facility] Blood 02/17/2024 1:31 PM EDT 02/17/2024 1:31 PM EDT Hayder Graham MD POINT OF CARE TEST ORDERABLES Performing Organization Address City/State/[facility] Co de Phone Number [facility] [place] [address] * (ABNORMAL) Coox2 (02/17/2024 1:21 PM EDT) [...] CARE TEST ORDERABLES [facility] [place] [place] [address] * (ABNORMAL) BLOOD GAS 2 ARTERIAL (02/17/2024 [...] OF CARE TEST ORDERABLES Performing Organization Address [facility] de Phone Number [facility] [place] [address] * (ABNORMAL) Fibrinogen (02/17/2024 12:10 PM EDT) [...] MD HEMATOLOGY ORDERABLE S Performing Organization Address [facility] Co de Phone Number [facility] [place] [place] [address] * (ABNORMAL) Thrombin time (02/17/2024 12:10 PM [...] MD HEMATOLOGY ORDERABLE S Performing Organization Address [facility] de Phone Number [facility] [place] [address] * APTT (02/17/2024 12:10 PM EDT) Partial [...] MD HEMATOLOGY ORDERABLE S Performing Organization Address [facility] de Phone Number [facility] [place] [address] * (ABNORMAL) Prothrombin Time (02/17/2024 12:10 PM [...] HEMATOLOGY ORDERABLE S [facility] [place] [place] [address] * (ABNORMAL) Hemogram (02/17/2024 12:10 PM EDT) [...] [facility] NRBC% auto 0.0 % [facility] NRBC Absolute 0.000 0.000 - 0.000 x10(3)/mc L [facility] Blood 02/17/2024 12:1 0 PM EDT 02/17/2024 12:19 PM EDT Narrative Resulting Agency Comment Spec In Lab Tara York MD HEMATOLOGY ORDERABLE S [facility] [address] [address] * (ABNORMAL) BLOOD GAS 2 ARTERIAL (02/17/2024 [...] HOSPITAL LABORATORY Comment: Noted by instrument lens inspector. Please note: Patients with WBC >100,000 may [...] CARE TEST ORDERABLES [facility] [place] [place] [address] * (ABNORMAL) BLOOD GAS 2 ARTERIAL (02/17/2024 [...] HOSPITAL LABORATORY Comment: Noted by instrument lens inspector. Please note: Patients with WBC >100,000 may [...] OF CARE TEST ORDERABLES Performing Organization Address City/[facility]/ZIP [place] [address] * (ABNORMAL) Hemoglobin and Hematocrit, blood (02/17/2024 [...] HEMATOLOGY ORDERABL ES [facility] [place] [address] * (ABNORMAL) Platelet count (02/17/2024 11:04 AM EDT) Platelet 106(L) 145 - 357 x10(3)/mc L [facility] Immature Plt % 1.6 0.0 - 7.4 % [facility] Comment: Limitation of the Immature Platelet Fraction (IPF)-May be less reliable when the platelet count is less than 54r199/uL due to statistical imprecision. The IPF value [...] in a decreased state of production. References: [employer] The Clinical Value of the Immature Platelet Fraction (IPF) in Cell Recovery Document Number [id number] 03/2011 [employer] The Role of the Immature Platelet Fraction (IPF) in the Differential Diagnosis of Thrombocytopenia, Document [id number] V002/15/14 P014 Blood 02/17/2024 11:0 4 AM EDT 02/17/2024 11:12 AM EDT Narrative Resulting Agency Comment Spec In Lab Hayder Graham MD HEMATOLOGY ORDERABL ES [facility] [place] [address] * (ABNORMAL) Fibrinogen (02/17/2024 11:04 AM EDT) Pathologist [facility] Fibrinogen 149(L) 200 - 393 mg/dL [facility] [...] HEMATOLOGY ORDERABL ES [facility] [place] [address] * (ABNORMAL) BLOOD GAS 2 ARTERIAL (02/17/2024 [...] OF CARE TEST ORDERABLES Performing Organization Address City/State/[facility] Co de Phone Number [facility] [place] [address] * (ABNORMAL) BLOOD GAS 2 ARTERIAL (02/17/2024 [...] OF CARE TEST ORDERABLES Performing Organization Address City/State/[facility] Co de Phone Number [facility] [place] [address] * Surgical Pathology Report (02/17/2024 10:01 AM EDT) Final Diagnosis [id number] ? Location: [facility]; [facility]; The signing pathologist has (i) examined the relevant preparation(s) for the specimen(s) and (ii) rendered or confirmed the diagnosis(es). . ?Surgical Pathology DIAGNOSIS Aortic valve leaflets, excision: Valve leaflets with myxoid degeneration, nodular fibrosis and dystrophic calcifications. Electronically signed by: ?Livier Montoya MD Verified: ??02/24/2024 13:49 ??Pathologist Performed at: ??-[facility] Dept. of Pathology, [place] [address] Agent Licensing Clerk: Job Brewer MD, FCAP, ??CLIA Certificate: [id number] SPECIMEN(S) SUBMITTED A - Aortic Valve Leaflets, [...] Sections Processing Blocks submitted for decalcification: A1. Automotive Painter sections in 1 cassette labeled A1. ??ajw 02/24/2024 1:49 PM EDT [facility] AORTIC STRUCTURE / Unknown 02/17/2024 10:01 AM EDT 02/17/2024 10:01 AM EDT Hayder Graham MD PATHOLOGY/CYTOLOGY ORDERABLES Performing Organization Address City/[facility]/ZIP Co de Phone Number [facility] [place] [place] [address] * Specimen to Pathology (02/17/2024 10:01 AM EDT) AP Specimen 02/17/2024 10:0 1 AM EDT 02/17/2024 10:01 AM EDT Narrative [facility] - 02/17/2024 10:01 AM EDT Specimen requisition ordered. ??Separate Pathology report to follow Hayder Graham MD PATHOLOGY/CYTOLOGY ORDERABLES Performing Organization Address [facility]/ZIP Co de Phone Number [facility] [place] [address] * (ABNORMAL) BLOOD GAS 2 ARTERIAL (02/17/2024 [...] CARE TEST ORDERABLES [facility] [place] [place] [address] * (ABNORMAL) BLOOD GAS 2 VENOUS (02/17/2024 9:34 AM EDT) pH, Venous 7.22(Criti marquez) 7.32 - 7.42 [facility] Comment:Noted by instrument lens inspector. PCO2, Venous 43 41 - 51 mmHg [facility] Comment:Noted by instrument lens inspector. PO2, Venous 57(H) 25 - 40 mmHg [facility] Comment:Noted by instrument lens inspector. Bicarbonate, Venous 17.1 mmol/L [facility] Comment:Noted by instrument lens inspector. Base Excess, Venous -10.6 mmol/L [facility] Comment:Noted by instrument lens inspector. Hgb Blood Gas 11.2(L) 13.7 - 16.5 g/dL [facility] Comment:Noted by instrument lens inspector. Oxyhemoglobin, Venous 86.5 % [facility] Comment:Noted by instrument lens inspector. Carboxyhemoglob in, Venous 0.3 % [facility] Comment: Noted by instrument lens inspector. Nonsmokers: 0.5-1.5% COHB Smokers: Variable, but usually less than 10% Toxic: 20-30% COHB Lethal: Greater than 60% COHB Methemoglobin, Venous 0.0 <=1.5 % [facility] Comment:Noted by instrument lens inspector. Na Whole Blood 156(H) 135 - 145 mmol/L [facility] Comment:Noted by instrument lens inspector. K Whole Blood 5.5(H) 3.5 - 5.0 mmol/L [facility] Comment: Noted by instrument lens inspector. Please note: Patients with WBC >100,000 may have falsely elevated Potassium levels. Contact the Clinical Chemistry Laboratory if there are any questions. ICa Whole Blood 1.03(L) 1.15 - 1.33 mmol/L [facility] Comment: Noted by instrument lens inspector. Note: ??Total bilirubin higher than 20 mg/dL may lead to falsely low ionized calcium. CL Whole Blood 100 98 - 107 mmol/L [facility] Comment:Noted by instrument lens inspector. Gluc Whole Bld 132 65 - 199 mg/dL [facility] Comment: Noted by instrument lens inspector. Diabetes: >=200 mg/dL plus symptoms Lactate WB 1.0 0.5 - 2.2 mmol/L [facility] Comment:Noted by instrument lens inspector. Blood Gas Source Venous [facility] Blood 02/17/2024 9:34 AM EDT 02/17/2024 9:34 AM EDT Hayder Graham MD POINT OF CARE TEST ORDERABLES [facility] [place] [place] [address] * (ABNORMAL) BLOOD GAS 2 ARTERIAL (02/17/2024 [...] OF CARE TEST ORDERABLES Performing Organization Address [facility] Co de Phone Number [facility] [place] [address] * POCT Glucose (02/17/2024 6:38 AM EDT) Glucose, POC 98 65 - 199 mg/dL [facility] Comment: Supplemental ranges: <140 mg/dL before meals <180 mg/dL all other times of the day Blood 02/17/2024 6:38 AM EDT 02/17/2024 6:38 AM EDT Hayder Graham MD POINT OF CARE TEST ORDERABLES Performing Organization Address [facility] Co de Phone Number [facility] [place] [address] * Transesophageal Echo/OR (02/17/2024 6:33 AM EDT) [...] York MD - 02/17/2024 Version: 1 Name: AKRLOS GARCIA Study Date: 02/17/2024,6: 33 AM Patient [...] [facility] [...] 6 hours upon arrival to Unit. Give PA if unable to take PO, Routine Given [...] dose on Sat02/17/24 at 1400, Until Discontinued, [place] teeth and / or gums. Scan the CHG vial in the [employer] Q-Care Oral Care Kit from floor stock. Ventilator-associated pneumonia prophylaxis For use in ICU/Critical care locations ONLY. Obtain kit from Floor Stock location. Scan CHG vial in the [employer] Q-Care Oral Care Kit, Routine Given 02/17/2024 [...] PHENYLephrine and/or vasopressin ineffective. Call pager # [phone] if initiated. Titrate to keep systolic blood [...] house mover for additional fluid orders: pager #[phone]. Rate/Dose Verify 02/18/2024 8:00 AM EDT 1 mL/hr 1 mL/hr Rate/Dose Verify 02/18/2024 6:00 AM EDT 1 mL/hr 1 mL/hr Rate/Dose Verify 02/18/2024 4:00 AM EDT 1 mL/hr 1 mL/hr sodium chloride 0.9% infusion 10-30 mL/hr, Intravenous, DAILY PRN, Starting on Sat02/17/24 at 1307, Until Sat02/18/24 at 0835, Side port TKO rate, per [facility] nursing protocol. Rate/Dose Verify 02/17/2024 8:00 PM EDT 30 mL/hr 30 mL/hr Rate/Dose Verify 02/17/2024 6:00 PM EDT 30 mL/hr 30 mL/h r Rate/Dose Verify 02/17/2024 5:00 PM EDT 30 mL/hr 30 mL/h r sodium chloride 0.9% infusion 10-30 mL/hr, Intravenous, DAILY PRN, Starting on Sat02/17/24 at 1307, Until Sat02/18/24 at 0835, Side port TKO rate, per [facility] nrusing protocol. Rate/Dose Verify 02/18/2024 8:00 AM [...] Routine documented in this encounter Care Teams Archives Specialist Relationship Specialty Start Date End Date Aparna Jordan APRN PCP - General Family Medicine 10/21/23 05/26/24 documented as of this encounter
--- OUTSIDE RECORDS SUMMARY | 2024-06-05 08:20 | XMS_ITS | Clinical Summary ---
Author Organization [facility] Address [address] [place] [address] Care Team Providers Care Gun Stocker Name Role Phone Vanessa Christian NP Primary Care Provider [phone] Social History Tobacco Use Types Packs/Day Years [...] COVID-19 Vaccine (2022-24 season) 2023 Care Teams Gun Stocker Relationship Specialty Start Date End Date Vanessa Christian NP [address] [place] [phone] PCP - General Family Medicine - Primary Care 10/07/23
--- OUTSIDE RECORDS SUMMARY | 2024-06-05 08:20 | XMS_ITS | Encounter Summary ---
Author Organization [facility] Address [facility] [place] [address] Care Team Providers Care Beauty Specialist Name Role Phone Gino Vanessa Lane DOTSON Primary Care Provider [phone] Encounter Details Date Type Department Care Team (Late st Contact Info) Description 02/24/2024 Orders Only Cardiac Surgery [facility] [place] [phone] Trudi Lester APRN [facility] [place] [address] Social History Tobacco Use Types Packs/Day Years Used Date Smoking Tobacco: Former Cigarettes Smokeless Tobacco: Never Comments:Quit 15 + years ago Alcohol Use Standard Drinks/Week Comments Yes 0 (1 standard drink = 0.6 oz pur e alcohol) rare [facility] Utilities Answer Date Recorded In the past 12 months has e [employer], gas, oil, or water [employer] threatened to shut off services in your [...] PM EST Office Visit Cardiology at [address] [place] [address] Neftali Ernandez MD [facility] [place] [address] documented as of this encounter Visit Diagnoses Not on filedocumented in this encounter Care Teams Beauty Specialist Relationship Specialty Start Date End Date Vanessa Christian APRN PCP - General Family Medicine 10/21/23 05/26/24 documented as of this encounter
--- OUTSIDE RECORDS SUMMARY | 2024-06-05 08:20 | XMS_ITS | Encounter Summary ---
Author Organization [facility] Address [facility] [place] [address] Care Team Providers Care Preschool Teacher Assistant Name Role Phone Vanessa Christian MAURI Primary Care Provider [phone] Encounter Details Date Type Department Care Team (Late st Contact Info) Description 03/12/2024 2:40 PM EDT Office Visit [place] [phone] Zak Farmer MD [facility] [place] [address] Coronary artery disease, unspecified vessel or lesion type, unspecified whether angina present, unspecified whether [place] or transplanted heart Social History Tobacco Use Types Packs/Day Years Used Date Smoking Tobacco: Former Cigarettes Smokeless Tobacco: Never Comments:Quit 15 + years ago Alcohol Use Standard Drinks/Week Comments Yes 0 (1 standard drink = 0.6 oz pur e alcohol) rare [facility] Utilities Answer Date Recorded In the past 12 months has e [employer], gas, oil, or water [employer] threatened to shut off services in your [...] 2:40 PM EDT To: MD Vanessa Coles, LOAD OUT PERSON Re; Karlos Santa ( 1960) We had [...] office. Best personal regards, Zak Farmer MD [phone] documented in this encounter Plan of Treatment Upcoming Encounters Date Type Department Care Team (Late st Contact Info) Description 11/30/2024 3:00 PM EST Office Visit Cardiology at [address] [place] [address] Neftali Ernandez MD [facility] [place] [address] documented as of this encounter Procedures Procedure Name Priority Date/Time Associated Diagnosis Comments EKG 12-LEAD Routine 03/12/2024 2:35 PM EDT Coronary artery disease, unspecified vessel or lesion type, unspecified whether angina present, unspecified whether [place] or transplanted heart documented in this encounter Results * EKG 12 Lead (03/12/2024 2:35 PM EDT) Ventricular rate 59 BPM MUSE SYSTEM Atrial Rate 59 BPM MUSE SYSTEM P-R Interval 190 ms MUSE SYSTEM QRS Duration 92 ms MUSE SYSTEM Q-T Interval 406 ms MUSE SYSTEM QTC Calculated (Bezet) 401 ms MUSE SYSTEM Calculated P [place] -12 degrees MUSE SYSTEM Calculated R [place] 24 degrees MUSE SYSTEM Calculated T [place] 74 degrees MUSE SYSTEM INTERPRETATION Sinus bradycardia T wave abnormality, consider anterior ischemia Abnormal ECG When compared with ECG of 17-FEB-2024 13:24, ND interval has decreased T wave inversion now evident in Anterior leads Confirmed by Paul Guzman ([id number]) on 03/15/2024 8:36:23 AM MUSE SYSTEM 03/12/2024 2:35 PM EDT 03/15/2024 8:36 AM EDT Zak Farmer MD ECG ORDERABLES MUSE SYSTEM documented in this encounter Visit Diagnoses Diagnosis Coronary artery disease, unspecified vessel or lesion type, unspecified whether angina present, unspecified whether [place] or transplanted heart documented in this encounter Care Teams Preschool Teacher Assistant Relationship Specialty Start Date End Date Vanessa Christian APRN PCP - General Family Medicine 10/21/23 05/26/24 documented as of this encounter
--- OUTSIDE RECORDS SUMMARY | 2024-06-05 08:20 | XMS_ITS | Encounter Summary ---
Author Organization [facility] Address [facility] [place] [address] Care Team Providers Care Psych Therapist Name Role Phone Vanessa Christian MAURI Primary Care Provider [phone] Encounter Details Date Type Department Care Team (Latest Contact Info) Description 05/27/2024 Travel Social History Tobacco Use Types Packs/Day Years Used Date Smoking Tobacco: Former Cigarettes Smokeless Tobacco: Never Comments:Quit 15 + years ago Alcohol Use Standard Drinks/Week Comments Yes 0 (1 standard drink = 0.6 oz pur e alcohol) rare [facility] Utilities Answer Date Recorded In [...] PM EST Office Visit Cardiology at [address] [phone] Neftali Ernandez MD [facility] [place] [address] documented as of this encounter Visit Diagnoses Not on filedocumented in this encounter Care Teams Psych Therapist Relationship Specialty Start Date End Date Vanessa Christian APRN [address] [place] [address] PCP - General Family Medicine 05/27/24 documented as of this encounter
--- OUTSIDE RECORDS SUMMARY | 2024-06-05 08:20 | XMS_ITS | Referral Summary ---
Author Organization [facility] Address [address] [place] [address] Care Team Providers Care Senior Policy Associate Name Role Phone Filidayna Vanessa Sherman NP Primary Care Provider [phone] Social History Tobacco Use Types Packs/Day Years Used Date Smoking Tobacco: Never Assessed Sex and Gender Information Value Date Recorded Sex Assigned at Not on file Gender Identity Not on file Sexual Orientation Not on file Plan of Treatment Not on file Care Teams Senior Policy Associate Relationship Specialty Start Date End Date Vanessa Christian NP [address] [place] [address] PCP - General Family Medicine - Primary Care 10/07/23
--- OUTSIDE RECORDS SUMMARY | 2024-06-05 08:20 | XMS_ITS | Encounter Summary ---
Author Organization [facility] Address [facility] [place] [address] Care Team Providers Care Brewery Cellar Worker Name Role Phone Vanessa Christian Lane DOTSON Primary Care Provider [phone] Reason for Visit * Reason Comments Coronary Artery Disease Aortic Stenosis Encounter Details Date Type Department Care Team (Latest Contact Info) Description 05/27/2024 11:00 AM EDT Office Visit Cardiology at [address] [place] [phone] Neftali Ernandez MD [facility] [place] [address] ASCVD (arteriosclerotic cardiovascular disease); Nonrheumatic aortic valve stenosis Social History Tobacco Use Types Packs/Day Years Used Date Smoking Tobacco: Former Cigarettes Smokeless Tobacco: Never Comments:Quit 15 + years ago Alcohol Use Standard Drinks/Week Comments Yes 0 (1 standard drink = 0.6 oz pur e alcohol) rare [facility] Utilities Answer Date Recorded In the past 12 months has e Mobile Ads, gas, oil, or water [employer] threatened to shut off services in your [...] PM EST Office Visit Cardiology at [address] [address] Neftali Ernandez MD [facility] [place] [address] documented as of this encounter Visit Diagnoses Diagnosis ASCVD (arteriosclerotic cardiovascular disease) Unspecified cardiovascular disease Nonrheumatic aortic valve stenosis Aortic valve disorders documented in this encounter Care Teams Brewery Cellar Worker Relationship Specialty Start Date End Date Vanessa Christian APRN [address] [place] [address] PCP - General Family Medicine 05/27/24 documented as of this encounter
--- OUTSIDE RECORDS SUMMARY | 2024-06-05 08:20 | XMS_ITS | Encounter Summary ---
Author Organization Counts Include [facility] Address [place] [address] Care Team Providers Care Career Services Coordinator Name Role Phone Vanessa Christian MAURI Primary Care Provider [phone] Encounter Details Date Type Department Care Team (Latest Contact Info) Description 05/20/2024 Travel Social History Tobacco Use Types Packs/Day Years Used Date Smoking Tobacco: Former Cigarettes Smokeless Tobacco: Never Comments:Quit 15 + years ago Alcohol Use Standard Drinks/Week Comments Yes 0 (1 standard drink = 0.6 oz pur e alcohol) rare [facility] Utilities Answer Date Recorded In the past [...] PM EST Office Visit Cardiology at [address] [phone] Neftali Ernandez MD [facility] [address] documented as of this encounter Visit Diagnoses Not on filedocumented in this encounter Care Teams Career Services Coordinator Relationship Specialty Start Date End Date Vanessa Christian APRN PCP - General Family Medicine 10/21/23 05/26/24 documented as of this encounter
--- OUTSIDE RECORDS SUMMARY | 2024-06-05 08:20 | XMS_ITS | Clinical Summary ---
Author Organization [facility] Address [facility] [place] [address] Care Team Providers Care Coronary Clinical Specialist Name Role Phone Vanessa Christian Lane DOTSON Primary Care Provider [phone] Allergies No known active allergies Medications Medication [...] SHT at [facility] [place] for further evaluation. Logistics and preliminary review of TONY were reviewed with patient. - Refer to SHT Hypertension 08/14/2023 Resolved Problems Problem Noted Date Diagnosed Date Resolved Date Nevus of face 09/26/2023 05/27/2024 Overview (09/26/2023): Right anabaptist Chest pressure 08/14/2023 10/21/2023 SILVA (dyspnea on exertion) 08/14/2023 HLD (hyperlipidemia) 08/14/2023 024 Encounters Date Type Department Care Team Description 05/27/2024 11:00 AM EDT Office Visit Cardiology at [address] [place] [phone] Neftali Ernandez MD ASCVD (arteriosclerotic cardiovascular disease); Nonrheumatic aortic valve stenosis 05/27/2024 Travel 05/20/2024 Travel 03/12/2024 2:40 PM EDT Office Visit Cardiac Surgery at [facility] [place] [facility] [place] [address] Zak Farmer MD Coronary artery disease, unspecified vessel or lesion type, unspecified whether angina present, unspecified whether chilkat or transplanted heart 03/12/2024 1:30 PM EDT - 03/12/2024 11:59 PM EDT Hospital Encounter XRay at [address] [place] [address] Coronary artery disease, unspecified vessel or lesion type, unspecified whether angina present, unspecified whether chilkat or transplanted heart Discharge Disposition: Home 03/12/2024 [...] the past 12 months has th e Traction, gas, oil, or water [employer] threatened to shut off services in [...] PM EST Office Visit Cardiology at [address] [place] [address] Neftali Ernandez MD [facility] [place] [address] Health Maintenance Due Date Last Done Comments [...] series) 06/07/2024 Medical Devices Implanted Type Area Machine Sander Device Identifier Shelf Expiration Date Model / Serial / Lot Cable,Cut,Edg ,Blnt,Ss,3tpr ([id number]) - [id number] Implanted:Qty : 1 on 02/17/2024 by Zak Farmer MD at [facility] IMPLANTS Midline: Chest [employer] - [id number] 09/02/2028 [id number] / / [id number] Valve Coronary Aortic 23mm Tissue Trnscath Biopros Inspiris ([id number]) (Autoreq) - [id number] Implanted:Qty : 1 on 02/17/2024 by Zak Farmer MD at [facility] IMPLANTS Heart [employer] - TSAI LI 09/15/2027 [id number] 23MM / [id number] / Procedures Procedure Name Priority Date/Time Associated Diagnosis Comments EKG 12-LEAD Routine 05/27/2024 11:24 AM EDT EKG 12-LEAD Routine 03/12/2024 2:35 PM EDT Coronary artery disease, unspecified vessel or lesion type, unspecified whether angina present, unspecified whether chilkat or transplanted heart XR CHEST PA AND LATERAL Routine 03/12/2024 1:42 PM EDT Coronary artery disease, unspecified vessel or lesion type, unspecified whether angina present, unspecified whether chilkat or transplanted heart from Last 3 Months [...] (Bezet) 367 ms MUSE SYSTEM Calculated P [place] 12 degrees MUSE SYSTEM Calculated R [place] 27 degrees MUSE SYSTEM Calculated T [place] 62 degrees MUSE SYSTEM INTERPRETATION Sinus bradycardia with 1st degree A-V block Otherwise normal ECG When compared with ECG of 12-MAR-2024 14:35, T wave inversion no longer evident in Anterior leads Confirmed by MD Ernandez Daniel ([id number]) on 06/01/2024 8:36:17 AM MUSE SYSTEM 05/27/2024 11:2 4 AM EDT 06/01/2024 8:36 AM EDT Unknown ECG ORDERABLES MUSE SYSTEM * XR Chest PA & Lateral (Generic) (03/12/2024 1:42 PM EDT) WORKSTATION ID [id number] [facility] Anatomical Region Laterality Modality Chest N/A Digital [...] who have questions please contact the health day care assistant that requested your imaging first. ? Electronically signed by: Augie Sanchez MD, [facility] ([phone]), at 03/13/2024 8:28 AM Narrative 03/13/2024 8:28 AM EDT EXAMINATION: XR CHEST PA AND LATERAL (GENERIC) CLINICAL HISTORY: s/p cabg eval effusions I25.10, Atherosclerotic heart disease of chilkat coronary artery without angina pectoris TECHNIQUE: PA [...] eval effusions I25.10, Atherosclerotic heart disease of chilkat coronary artery withoutangina pectoris TECHNIQUE: PA and [...] patients who have questions please contactthe health day care assistant that requested your imaging first. Electronically signed by: Augie Sanchez MD, [facility]([phone]), at 03/13/2024 8:28 AM Zak Farmer MD [...] Status decision made by: Patient Care Teams Coronary Clinical Specialist Relationship Specialty Start Date End Date Vanessa Christian, MAURI [address] [place] [address] PCP - General Family Medicine 05/27/24
--- OUTSIDE RECORDS SUMMARY | 2024-06-05 08:21 | XMS_ITS | Encounter Summary ---
Author Organization [facility] Address [facility] [place] [address] Care Team Providers Care Mice Raiser Name Role Phone Vanessa Christian MAURI Primary Care Provider [phone] Encounter Details Date Type Department Care Team (Late st Contact Info) Description 02/14/2024 Orders [place] [phone] Zak Farmer MD [facility] [place]OTH[place] [address] Coronary artery disease, unspecified vessel or lesion type, unspecified whether angina present, unspecified whether telida or transplanted heart (Primary Dx) Social History [...] PM EST Office Visit Cardiology at [address] [place] [phone] Neftali Ernandez MD [facility] CARDIOLOGY [place], [place] [phone] documented as of this encounter Results * EKG 12 Lead (03/12/2024 2:35 PM EDT) Ventricular rate 59 BPM MUSE SYSTEM Atrial Rate 59 BPM MUSE SYSTEM P-R Interval 190 ms MUSE SYSTEM QRS Duration 92 ms MUSE SYSTEM Q-T Interval 406 ms MUSE SYSTEM QTC Calculated (Bezet) 401 ms MUSE SYSTEM Calculated P [place] -12 degrees MUSE SYSTEM Calculated R [place] 24 degrees MUSE SYSTEM Calculated T [place] 74 degrees MUSE SYSTEM INTERPRETATION Sinus bradycardia T wave abnormality, consider anterior ischemia Abnormal ECG When compared with ECG of 17-FEB-2024 13:24, MO interval has decreased T wave inversion now evident in Anterior leads Confirmed by Paul Guzman ([id number]) on 03/15/2024 8:36:23 AM MUSE SYSTEM 03/12/2024 2:35 PM EDT 03/15/2024 8:36 AM EDT Zak Farmer MD ECG ORDERABLES MUSE SYSTEM * XR Chest PA & Lateral (Generic) (03/12/2024 1:42 PM EDT) WORKSTATION ID [id number] RAD Anatomical Region Laterality Modality Chest N/A [...] eval effusions I25.10, Atherosclerotic heart disease of telida coronary artery without angina pectoris TECHNIQUE: PA [...] eval effusions I25.10, Atherosclerotic heart disease of telida coronary artery withoutangina pectoris TECHNIQUE: PA and [...] type, unspecified whether angina present, unspecified whether telida or transplanted heart- Primary Coronary artery disease, unspecified vessel or lesion type, unspecified whether angina present, unspecified whether telida or transplanted heart documented in this encounter Care Teams Mice Raiser Relationship Specialty Start Date End Date Vanessa Christian APRN PCP - General Family Medicine 10/21/23 05/26/24 documented as of this encounter
--- OUTSIDE RECORDS SUMMARY | 2024-06-05 08:21 | XMS_ITS | Encounter Summary ---
Author Organization [facility] [place] [address] Care Team Providers Care Hot Mill Shearer Name Role Phone Vanessa Christian MAURI Primary Care Provider [phone] Encounter Details Date Type Department Care Team (Latest Contact Info) Description 01/09/2024 3:00 PM EDT Laboratory [place] [phone] Nonrheumatic aortic valve stenosis Social History Tobacco Use Types Packs/Day Years Used Date Smoking Tobacco: Former Cigarettes Smokeless Tobacco: Never Comments:Quit 15 + years ago Alcohol Use Standard Drinks/Week Comments Yes 0 (1 standard drink = 0.6 oz pur e alcohol) rare [facility] Inpatient Questions Answer Date Recorded Prevent [...] PM EST Office Visit Cardiology at [address] [phone] Neftali Ernandez MD [facility] [place] [address] documented as of this encounter Procedures Procedure Name Priority Date/Time Associated Diagnosis Comments ABORH RECHECK STATUS Routine 01/09/2024 2:58 PM EDT HEMOGRAM Routine 01/09/2024 2:58 PM EDT Nonrheumatic aortic valve stenosis DIFFERENTIAL, AUTOMATED Routine 01/09/2024 2:58 PM EDT Nonrheumatic aortic valve stenosis TYPE AND SCREEN, SDP (FUTURE SURGERY, [facility] SAME DAY PROGRAM ONLY) Routine 01/09/2024 2:58 [...] CECILIO ALEMAN [facility] [place] [address] * Differential, Automated (01/09/2024 2:58 PM EDT) Neutrophil % 70.5 % [facility] Neutrophil Absolute 4.34 1.70 - 6.10 x10(3)/[facility] Lymph % 18.9 % [facility] Lymphocytes Abs 1.2 0.9 - 3.2 x10(3)/[facility] Monocyte % 8.0 % [facility] Monocyte Abs 0.5 0.3 - 0.9 x10(3)/[facility] Eos % 1.6 % [facility] Eosinophils Abs 0.1 0.0 - 0.4 x10(3)/[facility] Basophil % 0.5 % [facility] Baso Absolute 0.0 0.0 - 0.1 x10(3)/[facility] Immature Gran % 0.50 % [facility] Comment: Immature granulocytes(IG's)percentage and absolute count will include metamyelocytes, myelocytes, and promyelocytes. Blood smears from CBCs yielding IG's will be scanned manually for concordance. If this scan disagrees with the automated IG or if promyelocytes are noted, a manual differential will be performed. Immature Gran Absolute 0.03 0.00 - 0.04 x10(3)/[facility] Blood 01/09/2024 2:58 PM EDT 01/09/2024 3:03 PM EDT Narrative Resulting Agency Comment Spec In Lab Zak Farmer MD HEMATOLOGY ORDERABL ES [facility] [place] [address] * Hemogram (01/09/2024 2:58 PM EDT) White Blood Cell 6.2 4.0 - 9.5 x10(3)/[facility] Red Blood Cell 5.53 4.58 - 5.54 x10(6)/[facility] Hemoglobin 16.1 13.7 - 16.5 g/dL [...] LABORATORY Platelet 187 145 - 357 x10(3)/[facility] RDW Standard Deviation 39.2 36.0 - 45.0 fL [facility] RDW coefficient of variation 12.6 11.4 - 13.8 % [facility] Mean Platelet Volume 9.5 7.6 - 12.9 fL [facility] NRBC% auto 0.0 % [facility] NRBC Absolute 0.000 0.000 - 0.000 x10(3)/[facility] Blood 01/09/2024 2:58 PM EDT 01/09/2024 3:03 PM EDT Narrative Resulting Agency Comment Spec In Lab Zak Farmer MD HEMATOLOGY ORDERABL ES [facility] [place] [address] * Basic Metabolic Panel (non-fasting) (01/09/2024 2:58 [...] ORDERABLE S [facility] [place] [address] * Hepatic Function Panel (01/09/2024 2:58 PM [...] MD CHEMISTRY ORDERABLE S Performing Organization Address [facility] Co de Phone Number [facility] [place] [address] * Prothrombin Time (01/09/2024 2:58 PM EDT) [...] MD HEMATOLOGY ORDERABL ES Performing Organization Address [facility] Co de Phone Number [facility] [place] [address] * Type and Screen Future Surgery, [facility] SAME DAY PROGRAM ONLY) (01/09/2024 2:58 PM [...] LAB ORDE RABLES Performing Organization Address City/[facility]/[place] [address] documented in this encounter Visit Diagnoses Diagnosis Nonrheumatic aortic valve stenosis Aortic valve disorders documented in this encounter Care Teams Hot Mill Shearer Relationship Specialty Start Date End Date Vanessa Christian APRN PCP - General Family Medicine 10/21/23 05/26/24 documented as of this encounter
--- OUTSIDE RECORDS SUMMARY | 2024-06-05 08:21 | XMS_ITS | Encounter Summary ---
Author Organization [facility] [place] [address] Care Team Providers Care Rn Medication Name Role Phone Vanessa Christian APRN Primary Care Provider [phone] Encounter Details Date Type Department Care Team (Late st Contact Info) Description 10/21/2023 Abstract Cardiology at [address] [place] [phone] Adam Mayes RN Social History Tobacco Use [...] 3:00 PM EST Office Visit Cardiology at [address] [place] [address] Neftali Ernandez MD [facility] [place] [address] documented as of this encounter Visit Diagnoses Not on filedocumented in this encounter Care Teams Rn Medication Relationship Specialty Start Date End Date Vanessa Christian APRN PCP - General Family Medicine 10/21/23 05/26/24 documented as of this encounter
--- OUTSIDE RECORDS SUMMARY | 2024-06-05 08:21 | XMS_ITS | Encounter Summary ---
Author Organization [facility] [place] [address] Care Team Providers Care Fbi Profiler Name Role Phone Victor M Lafleur MD Primary Care Provider [phone] Encounter Details Date Type Department Care Team (Late st Contact Info) Description 09/26/2023 Abstract Cardiology at [address] [phone] Karen Billy, RN Nonrheumatic aortic [...] PM EST Office Visit Cardiology at [address] [place] [address] Neftali Ernandez MD [facility] [place] [address] documented as of this encounter Visit Diagnoses Diagnosis Nonrheumatic aortic valve stenosis Aortic valve disorders Nevus of face Benign neoplasm of skin of other and unspecified parts of face documented in this encounter Care Teams Fbi Profiler Relationship Specialty Start Date End Date Victor M Lafleur MD PCP - General 10/02/13 10/20/23 documented as of this encounter
--- OUTSIDE RECORDS SUMMARY | 2024-06-05 08:21 | XMS_ITS | Encounter Summary ---
[place] [address] Care Team Providers Care Manager Online Name Role Phone Vanessa Christian Lane DOTSON Primary Care Provider [phone] Reason for Referral * Diagnostic Test (Routine) - Closed Specialty Diagnoses / Procedures Referred By Contac t Referred To Contact Radiology Diagnoses Nonrheumatic aortic valve stenosis Procedures CT Chest wo Contrast (Generic) Louisa Cho PA [facility] [place] [address] [facility] [place] [address] Referral ID Status Reason Start Date Expiration Date V isits Requested Visits Authorized [id number] Closed Specialty Service Requested 01/10/2024 07/11/2025 1 1 Reason for Visit * Diagnostic Test (Routine) - Closed Specialty Diagnoses / Procedures Referred By Contac t Referred To Contact Radiology Diagnoses Nonrheumatic aortic valve stenosis Procedures CT Chest wo Contrast (Generic) Louisa Cho PA [facility] [place] [address] [facility] [place] [address] Referral ID Status Reason Start Date Expiration Date V isits Requested Visits Authorized [id number] Closed Specialty Service Requested 01/10/2024 07/11/2025 1 1 Encounter Details Date Type Department Care Team (Latest Contact Info) Description 02/03/2024 7:36 AM EDT - 02/03/2024 8:05 AM EDT Hospital Encounter CT Scan at [facility] [place] [address] Zak Farmer MD [facility] [place] [address] Nonrheumatic aortic valve stenosis Discharge Disposition: Home Social History Tobacco Use Types Packs/Day Years Used Date Smoking Tobacco: Former Cigarettes Smokeless Tobacco: Never Comments:Quit 15 + years ago Alcohol Use Standard Drinks/Week Comments Yes 0 (1 standard drink = 0.6 oz pur e alcohol) rare [facility] Inpatient Questions Answer Date Recorded Does Anyone [...] PM EST Office Visit Cardiology at [address] [place] [address] Neftali Ernandez MD [facility] [place] [address] documented as of this encounter Procedures Procedure Name Priority Date/Time Associated Diagnosis Comments CT CHEST WO CONTRAST (GENERIC) Routine 02/03/2024 7:44 AM EDT Nonrheumatic aortic valve stenosis documented in this encounter Results * CT Chest wo Contrast (Generic) (02/03/2024 7:44 AM EDT) [employer] WORKSTATION ID [id number] DH RAD Anatomical Region Laterality Modality Chest [...] have questions please contact the health care assistant that requested your imaging first. ? Electronically signed by: Rogerio Wright MD, [facility] ([phone]), at 02/03/2024 10:00 AM Narrative 02/03/2024 10:00 [...] nodule along the minor fissure (series 302 [id number]) and a 8 mm right lower lobe [...] who have questions please contactthe health care assistant that requested your imaging first. Electronically signed by: Rogerio Wright MD, [facility]([phone]), at 02/03/2024 10:00 AM Zak Farmer MD IMG CT ORDERABLES documented in this encounter Visit Diagnoses Diagnosis Nonrheumatic aortic valve stenosis Aortic valve disorders documented in this encounter Care Teams Manager Online Relationship Specialty Start Date End Date Vanessa Christian APRN PCP - General Family Medicine 10/21/23 05/26/24 documented as of this encounter
--- OUTSIDE RECORDS SUMMARY | 2024-06-05 08:21 | XMS_ITS | Encounter Summary ---
Author Organization [facility] [address] Care Team Providers Care Cad Manager Name Role Phone Vanessa Christian APRN Primary Care Provider [phone] Encounter Details Date Type Department Care Team (Late st Contact Info) Description 10/21/2023 Abstract Cardiology at [address] [phone] Adam Mayes RN Social History Tobacco Use [...] PM EST Office Visit Cardiology at [address] [address] Neftali Ernandez MD [facility] [place] [address] documented as of this encounter Visit Diagnoses Not on filedocumented in this encounter Care Teams Cad Manager Relationship Specialty Start Date End Date Vanessa Christian APRN PCP - General Family Medicine 10/21/23 05/26/24 documented as of this encounter
--- OUTSIDE RECORDS SUMMARY | 2024-06-05 08:21 | XMS_ITS | Encounter Summary ---
Author Organization [facility] [place] [address] Care Team Providers Care Radiology Director Name Role Phone Vanessa Christian MAURI Primary Care Provider [phone] Reason for Visit * Auth/Cert (Routine) Specialty [...] MD [facility] [place] [address] [facility] Referral ID Status Reason Start Date Expiration Date Visits Re quested Visits Authorized [id number] 1 1 Encounter Details Date Type Department Care Team (Latest Contact Info) Description 02/03/2024 8:06 AM EDT - 02/03/2024 2:54 PM EDT Hospital En[place] [address] Rima Dickinson MD [facility] [place] [address] Screening for cardiovascular condition; Aortic valve stenosis, [...] lbs Follow-up Visits Follow up with your pilot plant technician in 2-4 weeks Access Site 'Black and Blue' and tenderness is expected during the first week Call if you noted a mass (lump) greater than the size of a ellis Call Office with any Questions and if you have any of the following Clarence Lane M.D Interventional Salt Cutter Career Development Coordinator/Teacher #: [phone] * Attachments The following attachments cannot be sent through Care Everywhere. * CAD (Coronary Artery Disease): General Info (Azerbaijani) * Coronary Angiogram: Post-op (Azerbaijani) documented in this encounter Medications at Time [...] Pre-Procedure H&P Update: Cardiac Catheterization Karlos Anthony [id number] 1960 Chief Complaint: Aortic stenosis HPI: Mr. [...] is inthe chart Clarence Lane MD Interventional Salt Cutter 02/03/24 11:48 AM documented in this encounter Miscellaneous Notes * Brief Op Note - Clarence Lane MD - 02/03/2024 12:51 PM EDT Preliminary Cardiac Catheterization Procedure Note: Patient Name: Karlos Anthony : [id number] MR#: [id number] Case Date: 02/03/2024 Career Development Coordinator/Teacher: Surgeon(s) and Role: * Saira Lua MD [...] 3:00 PM EST Office Visit Cardiology at [address] [address] Neftali Ernandez MD [facility] [place] [address] Scheduled Orders Name Type Priority Associated Diagnoses [...] Modality Other Narrative 02/12/2024 3:47 PM EDT ?[facility] ? Cardiac Catheterization/Intervention Report ? Patient Name: Patenaude, Karlos ? Procedure Date: 02/03/2024 ? A #: [id number] ? Primary Physician: Saira Lua ? Case #: [id number] ? File Name: [id number] ? Catheterization Order Number: [id number] ? [facility] ? Final Report [place], [place] ? Patient Name: ? Karlos Patenaude ? ID#: ?[id number] ? : ?1960 ? Procedure Date: ? [...] Procedure Note Saira Lua MD - 02/12/2024 [facility] Cardiac Catheterization/Intervention Report Patient Name: Karlos Anthony Procedure Date: 02/03/2024 A #: [id number] Primary Physician: Saira Lua Case #: [id number] File Name: [id number] Catheterization Order Number: [id number] [facility] FinalReport [place], [place] Patient Name: Karlos Anthony ID#:[id number] :1960 Procedure Date: February 03, 2024 Case [...] was designated as ASA Class III. The [facility] clinical frailty scale is 3: Managing Well. [...] (Bezet) 372 ms MUSE SYSTEM Calculated P Pearson 59 degrees MUSE SYSTEM Calculated R Pearson 34 degrees MUSE SYSTEM Calculated T Pearson 63 degrees MUSE SYSTEM INTERPRETATION Sinus bradycardia [...] MD) documented in this encounter Care Teams Radiology Director Relationship Specialty Start Date End Date Vanessa Christian APRN PCP - General Family Medicine 10/21/23 05/26/24 documented as of this encounter
--- OUTSIDE RECORDS SUMMARY | 2024-06-05 08:21 | XMS_ITS | Encounter Summary ---
Author Organization [facility] Address [facility] [place] [address] Care Team Providers Care Spinner Operator Name Role Phone Vanessa Christian APRN Primary Care Provider [phone] Encounter Details Date Type Department Care Team [...] PM EST Office Visit Cardiology at [address] [place] [address] Neftali Ernandez MD [facility] [place] [address] documented as of this encounter Visit Diagnoses Not on filedocumented in this encounter Care Teams Spinner Operator Relationship Specialty Start Date End Date Vanessa Christian APRN PCP - General Family Medicine 10/21/23 05/26/24 documented as of this encounter
--- OUTSIDE RECORDS SUMMARY | 2024-06-05 08:21 | XMS_ITS | Encounter Summary ---
Author Organization [facility] [place] [address] Care Team Providers Care Discovery Guide Name Role Phone Vanessa Christian MAURI Primary Care Provider [phone] Reason for Visit * Auth/Cert (Routine) Specialty [...] W RHC (WRVU 5.9) Rima Dickinson MD [facility] [place] [address] [facility] Referral ID Status Reason Start Date Expiration Date Visits Re quested Visits Authorized [id number] 1 1 Encounter Details Date Type Department Care Team (Late st Contact Info) Description 02/03/2024 10:00 AM EDT - 02/03/2024 11:00 AM EDT Surgery [place] [address] Saira Lua MD [facility] [place] [address] CARDIAC CATHETERIZATION Social History Tobacco Use Types [...] lbs Follow-up Visits Follow up with your master yacht in 2-4 weeks Access Site 'Black and Blue' and tenderness is expected during the first week Call if you noted a mass (lump) greater than the size of a ellis Call Office with any Questions and if you have any of the following Clarence Lane M.D Interventional Hub Bander Loading Rack Supervisor #: [phone] * Attachments The following attachments cannot be sent through Care Everywhere. * CAD (Coronary Artery Disease): General Info (Taiwanese) * Coronary Angiogram: Post-op (Taiwanese) documented in this encounter Medications at Time [...] 02/03/2024 11:48 AM EDT [facility] Interventional Cardiology Adult Pre-Procedure H&P Update: Cardiac Catheterization Karlos Anthony [id number] 1960 Chief Complaint: Aortic stenosis HPI: Mr. [...] is inthe chart Clarence Lane MD Interventional Hub Bander 02/03/24 11:48 AM documented in this encounter Miscellaneous Notes * Brief Op Note - Clarence Lane MD - 02/03/2024 12:51 PM EDT Preliminary Cardiac Catheterization Procedure Note: Patient Name: Karlos Anthony : [id number] MR#: [id number] Case Date: 02/03/2024 Loading Rack Supervisor: Surgeon(s) and Role: * Saira Lua [...] 3:00 PM EST Office Visit Cardiology at [address] [address] Neftali Ernandez MD [facility] [place] [address] Scheduled Orders Name Type Priority Associated Diagnoses [...] Modality Other Narrative 02/12/2024 3:47 PM EDT ?[facility] ? Cardiac Catheterization/Intervention Report ? Patient Name: Patenaude, Karlos ? Procedure Date: 02/03/2024 ? A #: [id number] ? Primary Physician: Saira Lua ? Case #: [id number] ? File Name: [id number] ? Catheterization Order Number: [id number] ? [facility] ? Final Report [place], [place] ? Patient Name: ? Karlos Patenaude ? ID#: ?[id number] ? : ?1960 ? Procedure Date: ? [...] Procedure Note Saira Lua MD - 02/12/2024 [facility] Cardiac Catheterization/Intervention Report Patient Name: Karlos Anthony Procedure Date: 02/03/2024 A #: [id number] Primary Physician: Saira Lua Case #: [id number] File Name: [id number] Catheterization Order Number: [id number] [facility] FinalReport [place], [place] Patient Name: Karlos Anthony ID#:[id number] :1960 Procedure Date: February 03, 2024 Case [...] was designated as ASA Class III. The [facility] clinical frailty scale is 3: [...] 372 ms MUSE SYSTEM Calculated P [place] 59 degrees MUSE SYSTEM Calculated R [place] 34 degrees MUSE SYSTEM Calculated T [place] 63 degrees MUSE SYSTEM INTERPRETATION Sinus bradycardia [...] MD) documented in this encounter Care Teams Discovery Guide Relationship Specialty Start Date End Date Vanessa Christian APRN PCP - General Family Medicine 10/21/23 05/26/24 documented as of this encounter
--- OUTSIDE RECORDS SUMMARY | 2024-06-05 08:21 | XMS_ITS | Encounter Summary ---
Author Organization [facility] [place] [address] Care Team Providers Care Law Clerk Name Role Phone Vanessa Christian APRN Primary Care Provider [phone] Encounter Details Date Type Department Care Team (Late st Contact Info) Description 12/26/2023 Notes Only Cardiology at [address] [address] Neftali Ernandez MD [facility] [address] Social History Tobacco Use Types Packs/Day Years [...] EDT Echocardiogram images reviewed from [facility]. Indeed, the aortic valve appears severely stenotic. Cannotrule out bicuspid valve documented in this encounter Plan of Treatment Upcoming Encounters Date Type Department Care Team (Late st Contact Info) Description 11/30/2024 3:00 PM EST Office Visit Cardiology at [address] [address] Neftali Ernandez MD [facility] [place] [address] documented as of this encounter Visit Diagnoses Not on filedocumented in this encounter Care Teams Law Clerk Relationship Specialty Start Date End Date Vanessa Christian APRN PCP - General Family Medicine 10/21/23 05/26/24 documented as of this encounter
--- OUTSIDE RECORDS SUMMARY | 2024-06-05 08:21 | XMS_ITS | Encounter Summary ---
Author Organization [facility]ana [facility] [place] [address] Care Team Providers Care Foot Miter Operator Name Role Phone Vanessa Christian MAURI Primary Care Provider [phone] Reason for Visit * Auth/Cert (Routine) Specialty [...] ARTERIAL GRAFT (WRVU 7.93) Zak Farmer MD [facility] CARDIOTHORACIC [place] [address] [facility] Referral ID Status Reason Start Date Expiration Date Visits Re quested Visits Authorized [id number] 1 1 Encounter Details Date Type Department Care Team (Late st Contact Info) Description 02/17/2024 7:35 AM EDT Anesthesia Event Main Operating Room [facility] [place] [address] Roman York MD [facility] ANESTHESIOLOGY [place] [address] Anesthesia Record Procedure Summary Procedure Name Responsible [...] by Sadiq Woo RN PIV 02/17/24; 0715; [id number] catheter system; 18 gauge; cephalic vein (lateral [...] oz pur e alcohol) rare [facility] Utilities Answer Date Recorded In the past 12 months has th e electric, gas, oil, or water Abigail Stewart threatened to shut off services in your [...] Procedure Summary Date: 02/17/24 Room / Location: [facility] OR [address] [place] [address] MAIN OR Anesthesia Start: 734 Anesthesia Stop: [...] shown include unfiled device data. Patient Location: [facility] Level of Consciousness: Sedated (Pharmacologic/Intentional) Pain Management: [...] 08/14/2023 ??? Nevus of face 09/26/2023 Right episcopalian No past surgical history on file. Social [...] PM EST Office Visit Cardiology at [address] [place] [address] Neftali Ernandez MD [facility] [place] [address] documented as of this encounter [...] mg documented in this encounter Care Teams Foot Miter Operator Relationship Specialty Start Date End Date Vanessa Christian APRN PCP - General Family Medicine 10/21/23 05/26/24 documented as of this encounter
--- OUTSIDE RECORDS SUMMARY | 2024-06-05 08:21 | XMS_ITS | Encounter Summary ---
Author Organization [facility] [place] [address] Care Team Providers Care Stage Technician Name Role Phone Vanessa Christian MAURI Primary Care Provider [phone] Encounter Details Date Type Department Care Team (Late st Contact Info) Description 01/10/2024 Orders [place] [address] Lawson Napoles PA [facility] [place] [address] Screening for cardiovascular condition; Aortic valve stenosis, [...] PM EST Office Visit Cardiology at [address] [place] [phone] Neftali Ernandez MD [facility] [place] [address] documented as of this encounter Visit Diagnoses Diagnosis Screening for cardiovascular condition Screening for other and unspecified cardiovascular conditions Aortic valve stenosis, etiology of cardiac valve disease unspecified documented in this encounter Care Teams Stage Technician Relationship Specialty Start Date End Date Vanessa Christian APRN PCP - General Family Medicine 10/21/23 05/26/24 documented as of this encounter
--- OUTSIDE RECORDS SUMMARY | 2024-06-05 08:21 | XMS_ITS | Encounter Summary ---
Author Organization [facility] [place] [address] Care Team Providers Care Dispatcher Chief Coal Slurry Name Role Phone Vanessa Christian APRN Primary Care Provider [phone] Encounter Details Date Type Department Care Team [...] PM EST Office Visit Cardiology at [address] [place] [phone] Neftali Ernandez MD [facility] [place] [address] documented as of this encounter Visit Diagnoses Not on filedocumented in this encounter Care Teams Dispatcher Chief Coal Slurry Relationship Specialty Start Date End Date Vanessa Christian APRN PCP - General Family Medicine 10/21/23 05/26/24 documented as of this encounter
--- OUTSIDE RECORDS SUMMARY | 2024-06-05 08:21 | XMS_ITS | Encounter Summary ---
Author Organization [facility] Address [facility] [place] [address] Care Team Providers Care Children'S Service Worker Name Role Phone Vanessa Christian MAURI Primary Care Provider [phone] Reason for Visit * Consultation (Routine) - Closed Specialty Diagnoses / Procedures Referred By Contac t Referred To Contact Cardiac Surgery Diagnoses Nonrheumatic aortic valve stenosis significant - TAVR ( defers to Card Surg d/t age) Neftali Ernandez MD [facility] [place] [address] Zak Farmer MD [facility] CARDIOTHORACIC [place] [address] Referral ID Status Reason Start Date Expiration Date V isits Requested Visits Authorized [id number] Closed Consult, Test & Treat 10/21/2023 10/20/2024 1 1 Encounter Details Date Type Department Care Team (Late st Contact Info) Description 01/09/2024 1:40 PM EDT Office [place] [address] Zak Farmer MD [facility] CARDIOTHORACIC [place] [address] Nonrheumatic aortic valve stenosis Social [...] office. Best personal regards, Zak Farmer MD [phone] In aggregate 55 minutes were spent evaluating [...] 3:00 PM EST Office Visit Cardiology at [address] [place] [phone] Neftali Ernandez MD [facility] [place] [address] documented as of this encounter Results * [...] questions please contact the health direct care supervisor that requested your imaging first. ? Narrative [...] have questions please contactthe health direct care supervisor that requested your imaging first. Zak Farmer MD IMG DX ORDERABLES * Basic Metabolic Panel (non-fasting) (01/09/2024 2:58 PM EDT) Glucose 102 65 - 199 mg/dL [facility] Comment:Diabetes: >=200 mg/d L plus symptoms Blood Urea Nitrogen 15 10 - 20 mg/dL [facility] Creatinine 0.94 0.80 - 1.50 mg/dL [facility] Sodium 137 135 - 145 mmol/L [facility] Potassium 4.5 3.5 - 5.0 mmol/L [facility] Comment: Please note: ??Patients with WBC >100,000 may have falsely elevated Potassium levels. ??For accurate Potassium quantification in these patients send serum separator tube (gold top) for subsequent determinations. ??Contact the Clinical Chemistry Laboratory if there are any questions. Chloride 103 98 - 107 mmol/L [facility] Carbon Dioxide 27 22 - 31 mmol/L [facility] Anion Gap 7 5 - 15 mmol/L [facility] Calcium 9.5 8.5 - 10.5 mg/dL [facility] Est Glomerular Filtration Rate 91 >=60 mL/min/1. 73 m?? [facility] Comment: This patient's estimated [...] Lab Zak Farmer MD CHEMISTRY ORDERABLE S [facility] [place] [address] * Hepatic Function Panel (01/09/2024 2:58 PM EDT) Pathologist [facility] Protein, Total 6.7 6.1 - 8.0 g/dL [facility] Albumin 4.5 3.2 - 5.2 g/dL [facility] Aspartate Aminotransferase 21 0 - 39 unit/L [facility] Alanine Aminotransferase 21 0 - 55 unit/L [facility] Alkaline Phosphatase 81 40 - 130 unit/L [facility] Bilirubin, Total 0.7 0.2 - 1.3 mg/dL [facility] Bilirubin, Direct 0.2 0.0 - 0.3 mg/dL [facility] Blood 01/09/2024 2:58 PM EDT 01/09/2024 3:03 PM EDT Narrative Resulting Agency Comment Spec In Lab Zak Farmer MD CHEMISTRY ORDERABLE S Performing Organization Address [facility] Co de Phone Number [facility] [place] [address] * Prothrombin Time (01/09/2024 2:58 PM EDT) [facility] Prothrombin Time 10.6 9.4 - 12.5 sec [facility] International Normalization Ratio 0.9 [facility] Comment: An INR <2.0 [...] MD HEMATOLOGY ORDERABL ES Performing Organization Address [facility]/ZIP Co de Phone Number [facility] [place] [address] * Type and Screen Future Surgery, [facility] SAME DAY PROGRAM ONLY) (01/09/2024 2:58 PM EDT) ABORH Type O NEGATIVE [facility] Patient BB History Not Found [facility] Expires at 2359 on: 02-20-2024 [facility] Ab Screen Interp Negative [facility] Blood 01/09/2024 2:58 PM EDT 01/09/2024 2:58 PM EDT Narrative Resulting Agency Comment Spec In Lab Zak Farmer MD BLOOD BANK LAB CECILIO ALEMAN [facility] Organization Address City/State/ZIP Co de Phone Number [facility] [place] [address] documented in this encounter Visit Diagnoses Diagnosis Nonrheumatic aortic valve stenosis Aortic valve disorders Nonrheumatic aortic valve stenosis Aortic valve disorders documented in this encounter Care Teams Children'S Service Worker Relationship Specialty Start Date End Date Vanessa Christian APRN PCP - General Family Medicine 10/21/23 05/26/24 documented as of this encounter
--- OUTSIDE RECORDS SUMMARY | 2024-06-05 08:21 | XMS_ITS | Encounter Summary ---
Author Organization [facility] [place] [address] Care Team Providers Care Second Helper Name Role Phone Vanessa Christian Lane DOTSON Primary Care Provider [phone] Encounter Details Date Type Department Care Team (Late st Contact Info) Description 01/09/2024 2:30 PM EDT Clinical Support Same Day at [facility] [place] [phone] Social History Tobacco Use Types Packs/Day Years Used Date Smoking Tobacco: Former Cigarettes Smokeless Tobacco: Never Comments:Quit 15 + years ago Alcohol Use Standard Drinks/Week Comments Yes 0 (1 standard drink = 0.6 oz pur e alcohol) rare [facility] Inpatient Questions Answer Date Recorded Prevent [...] tube link for a video about [facility] cardiac surgery. Instructed to bring the booklet [...] type and screen performed while in the [facility]. Sent to Radiology for chest x-ray. Special medication instructions: None Procedure date: not booked. Darian documented in this encounter Plan of Treatment Upcoming Encounters Date Type Department Care Team (Late st Contact Info) Description 11/30/2024 3:00 PM EST Office Visit Cardiology at [address] [place] [address] Neftali Ernandez MD [facility] [place] [address] documented as of this encounter Visit Diagnoses Not on filedocumented in this encounter Care Teams Second Helper Relationship Specialty Start Date End Date Vanessa Christian APRN PCP - General Family Medicine 10/21/23 05/26/24 documented as of this encounter
--- OUTSIDE RECORDS SUMMARY | 2024-06-05 08:21 | XMS_ITS | Encounter Summary ---
[place] [address] Care Team Providers Care Grass Farm Laborer Name Role Phone Victor M Lafleur MD Primary Care Provider [phone] Reason for Visit * Reason Onset Date Comments Referral 09/20/2023 Encounter Details Date Type Department Care Team (Late st Contact Info) Description 09/20/2023 Telephone Cardiology at [address] [address] Karen Billy, garment mender Social History Tobacco Use Types Packs/Day Years [...] PM EST Office Visit Cardiology at [address] [place] [address] Neftali Ernandez MD [facility] [place] [address] documented as of this encounter Visit Diagnoses Not on filedocumented in this encounter Care Teams Grass Farm Laborer Relationship Specialty Start Date End Date Victor M Lafleur MD PCP - General 10/02/13 10/20/23 documented as of this encounter
--- OUTSIDE RECORDS SUMMARY | 2024-06-05 08:21 | XMS_ITS | Encounter Summary ---
Author Organization [facility] [place] [address] Care Team Providers Care Position Classification Manager Name Role Phone Vanessa Christian APRN Primary Care Provider [phone] Encounter Details Date Type Department Care Team [...] 3:00 PM EST Office Visit Cardiology at [address] [place] [address] Neftali Ernandez MD [facility] [address] documented as of this encounter Visit Diagnoses Not on filedocumented in this encounter Care Teams Position Classification Manager Relationship Specialty Start Date End Date Vanessa Christian APRN PCP - General Family Medicine 10/21/23 05/26/24 documented as of this encounter
--- OUTSIDE RECORDS SUMMARY | 2024-06-05 08:21 | XMS_ITS | Encounter Summary ---
Author Organization [facility] Address [facility] [place] [address] Care Team Providers Care Erp Analyst Name Role Phone Vanessa Christian MAURI Primary Care Provider [phone] Encounter Details Date Type Department Care Team (Latest Contact Info) Description 01/09/2024 3:02 PM EDT - 01/09/2024 11:59 PM EDT Hospital Encounter XRay at [address] [place] [address] Zak Farmer MD [facility] [place] [address] Nonrheumatic aortic valve stenosis Discharge Disposition: Home Social History Tobacco Use Types Packs/Day Years Used Date Smoking Tobacco: Former Cigarettes Smokeless Tobacco: Never Comments:Quit 15 + years ago Alcohol Use Standard Drinks/Week Comments Yes 0 (1 standard drink = 0.6 oz pur e alcohol) rare COUNTS INCLUDE 234 BEDS AT [facility] Inpatient Questions Answer Date Recorded Prevent [...] PM EST Office Visit Cardiology at [address] [place] [address] Neftali Ernandez MD [facility] [place] [address] documented as of this encounter Procedures Procedure [...] have questions please contact the health home care music therapist that requested your imaging first. ? [...] who have questions please contactthe health home care music therapist that requested your imaging first. Zak Farmer MD IMG DX ORDERABLES documented in this encounter Visit Diagnoses Diagnosis Nonrheumatic aortic valve stenosis Aortic valve disorders documented in this encounter Care Teams Erp Analyst Relationship Specialty Start Date End Date Vanessa Christian APRN PCP - General Family Medicine 10/21/23 05/26/24 documented as of this encounter
--- OUTSIDE RECORDS SUMMARY | 2024-06-05 08:21 | XMS_ITS | Encounter Summary ---
Author Organization [facility] Address [facility] Ivana linareseileen [place] [id number] Care Team Providers Care Welding Lead Burner Name Role Phone Vanessa Christian MAURI Primary Care Provider [phone] Reason for Referral * Consultation (Routine) - Closed Specialty Diagnoses / Procedures Referred By Contac t Referred To Contact Cardiac Surgery Diagnoses Nonrheumatic aortic valve stenosis significant - TAVR ( defers to Card Surg d/t age) Errol Loya MD [facility] [address] Zak Farmer MD [facility] [place] [address] Referral ID Status Reason Start Date Expiration Date V isits Requested Visits Authorized [id number] Closed Consult, Test & Treat 10/21/2023 10/20/2024 1 1 Reason for Visit * Reason Comments Chest Pain Shortness of Breath Aortic Stenosis Encounter Details Date Type Department Care Team (Late st Contact Info) Description 10/21/2023 1:20 PM EST Office Visit Cardiology at [address] [address] Errol Loya MD [facility] [address] Nonrheumatic aortic valve stenosis Social History Tobacco [...] Problem List Diagnosis Aortic stenosis 12/2022 TTE ([facility]): VITA 0.8-0.9 cm2 (MG 28 mmHg, DOI 3.6 m/s, SVI 35 cc/m2). Trace regurgitation. Normal bi-v s/f, no other valve findings Gastroesophageal reflux Nevus of face Right mosque Hypertension HLD (hyperlipidemia) MEDICATIONS: Current Outpatient Medications [...] the meantime will refer to T at [facility] for further evaluation. Logistics and preliminary review [...] the meantime will refer to T at [facility] for further evaluation. Logistics and preliminary review [...] PM EST Office Visit Cardiology at [address] [place] [phone] Errol Loya MD [facility] [address] Scheduled Referrals Name Type Priority Associated Diagnoses Order Schedule Amb Referral to Structural Heart Outpatient Referral Routine Nonrheumatic aortic valve stenosis Ordered: 10/21/2023 documented as of this encounter Visit Diagnoses Diagnosis Nonrheumatic aortic valve stenosis Aortic valve disorders documented in this encounter Care Teams Welding Lead Burner Relationship Specialty Start Date End Date Vanessa Christian APRN PCP - General Family Medicine 10/21/23 05/26/24 documented as of this encounter
--- OUTSIDE RECORDS SUMMARY | 2024-06-05 08:21 | XMS_ITS | Encounter Summary ---
Author Organization [facility] Address [facility] [place] [address] Care Team Providers Care Target Worker Name Role Phone Vanessa Christian [employer] Primary Care Provider [phone] Reason for Referral * Diagnostic Test (Routine) - Closed Specialty Diagnoses / Procedures Referred By Contac t Referred To Contact Radiology Diagnoses Nonrheumatic aortic valve stenosis Procedures CT Chest wo Contrast (Generic) Louisa Reid PA [facility] [place] [address] [facility] [place] [address] Referral ID Status Reason Start Date Expiration Date V isits Requested Visits Authorized [id number] Closed Specialty Service Requested 01/10/2024 07/11/2025 1 1 Encounter Details Date Type Department Care Team (Late st Contact Info) Description 01/09/2024 Orders [place] [address] Zak Farmer MD [facility] [place] [address] Nonrheumatic aortic valve stenosis Social History Tobacco [...] 3:00 PM EST Office Visit Cardiology at [address] [place] [address] Neftali Ernandez MD [facility] [place] [address] documented as of this encounter Results * CT Chest wo Contrast (Generic) (02/03/2024 7:44 AM EDT) WORKSTATION ID [id number] RAD Anatomical Region Laterality Modality Chest Computed [...] have questions please contact the health care partner that requested your imaging first. ? Electronically signed by: Rogerio Wright MD, [facility] ([phone]), at 02/03/2024 10:00 AM Narrative 02/03/2024 10:00 [...] nodule along the minor fissure (series [id number]) and a 8 mm right lower lobe [...] who have questions please contactthe health care partner that requested your imaging first. Electronically signed by: Rogerio Wright MD, [facility]([phone]), at 02/03/2024 10:00 AM Zak Farmer MD IMG CT ORDERABLES documented in this encounter Visit Diagnoses Diagnosis Nonrheumatic aortic valve stenosis Aortic valve disorders Nonrheumatic aortic valve stenosis Aortic valve disorders documented in this encounter Care Teams Target Worker Relationship Specialty Start Date End Date Vanessa Christian APRN PCP - General Family Medicine 10/21/23 05/26/24 documented as of this encounter
--- OUTSIDE RECORDS SUMMARY | 2024-06-05 08:21 | XMS_ITS | Encounter Summary ---
[facility] Organization [facility] [place] [address] Care Team Providers Care Pleater Hand Name Role Phone Aparna Jordan MAURI Primary Care Provider [phone] Reason for Visit * Auth/Cert (Routine) Specialty [...] ARTERIAL GRAFT (WRVU 7.93) Hayder Graham MD [facility] [place] [address] [facility] Referral ID Status Reason Start Date Expiration Date Visits Re quested Visits Authorized [id number] 1 1 Encounter Details Date Type Department Care Team (Late st Contact Info) Description 02/17/2024 7:30 AM EDT - 02/17/2024 1:26 PM EDT [place] [id number] Hayder Graham MD [facility] [place] [address] ENDOSCOPIC HARVEST VEIN(S) FOR CABG (WRVU 0.31) Social History Tobacco Use Types Packs/Day Years Used Date Smoking Tobacco: Former Cigarettes Smokeless Tobacco: Never Comments:Quit 15 + years ago Alcohol Use Standard Drinks/Week Comments Yes 0 (1 standard drink = 0.6 oz pur e alcohol) rare [facility] Utilities Answer Date Recorded In the [...] Patient Age: 63 y.o. Birthdate: 1960 Language: Puerto Rican Race: White Ethnicity: Not nor Admit Date: 02/17/2024 Discharge Date: 02/24/24 Attending Physician: Hayder Graham MD Follow-up Recommendations for Providers: Please continue routine management of cardiovascular risk factors including blood pressure, lipids,glucose, etc. Please note any changes to medications. Patient to follow up with PCP, Aparna Jordan APRN, in 1-2 weeks. Patient to follow up with Soiled Linen Distributor, Neftali Ernandez MD , in 2 weeks. Patient to follow up with Cardiac Surgeon, Dr. Hayder Graham, with a chest x-ray, EKG, and Echo. Inpatient Provider Contact Information: [facility] Section of Cardiac Surgery [facility] [address] FAX [phone] Discharge Diagnoses (Hospital Problems) Primary Diagnoses: /CAD [...] 33.75) performed by Hayder Graham MD at [facility] MAIN OR PRO CABG, ARTERY-VEIN, TWO N/A 02/17/2024 @CABG, TWO VENOUS GRAFTS & ARTERIAL GRAFT (WRVU 7.93) performed by Hayder Graham MD at [facility] MAIN OR PRO ENDOSCOPY W/VIDEO-ASST VEIN HARVEST, CABG Left 02/17/2024 ENDOSCOPIC HARVEST VEIN(S) FOR CABG (WRVU 0.31) performed by Hayder Graham MD at [facility] MAIN OR PRO REPLACEMENT PROSTHETIC AORTIC VALVE OPEN W CARDIOPULMONARY BYPASS HOMOGRF/STENT N/A 02/17/2024 @REPLACE AORTIC VALVE, OPEN, W\CPB, W\PROSTHETIC VALVE (WRVU 41.32) performed by Hayder Graham MD at [facility] MAIN OR Prior To Admission Medications [...] insufficiency. He has glaucoma. He used to bacXiaohongshu until about 15 years ago. He has undergone prior herniorrhaphy. 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 Major Procedures/Operations: 02/17/24 s/p avr/cabgx3 CABG x 3 JOSE->LAD SVG->dRCA SVG->OM1 EVH from LLE AVR with a 23 mm Inspiris Bioprosthesis Hospital Course: Karlos Garcia was admitted to [facility] on 02/17/2024 via the Same [...] Hayder Graham and/or the Cardiac Surgery Physician Restaurant Cook Team may be reached at . Antibiotic [...] Please refer to the card with the [place] [employer] Guidelines for more information. You [...] Dr. Hayder Graham. You may use a [place] Track or treadmill but avoid any pulling [...] friends, go to a movie, go to episcopalian, etc. Heavy activities: No hunting, skiing, jogging, [...] should resume a low fat, low cholesterol, [place] Heart Association Diet. Driving: No driving until [...] while being managed by your PCP and/or Soiled Linen Distributor. For future medication refills, please refer to your PCP and/or Soiled Linen Distributor after your discharge from our service. Thank you REMOVE CHEST TUBE SUTURES ON OR AFTER 03/02/24 Home oxygen therapy: N/A Follow up appointments: You should follow up with your PCP, Aparna Jordan APRN, in 1-2 weeks. Our office will schedule an appointment with your Soiled Linen Distributor, Neftali Ernandez MD , in 2 weeks. You have an appointment with your Cardiac Surgeon, Dr. Hayder Graham, 4 weeks with a chest x-ray, EKG, and Echo before your appointment. Cardiac Rehabilitation: Karlos Garcia was seen regarding participation in the outpatient Phase 2Cardiac Rehabilitation at [facility]. The patient agrees to a referral to this program. The referral will be sent at discharge and the patient should be contacted by the Program within 1- 2 weeks from discharge. Future Appointments and Orders Future Orders Complete By Expires Echocardiogram Transthoracic [24986 CPT(R)] 03/26/2024 09/25/2024 Process Instructions: Scheduling Instructions: Questions: Where will study be performed?: [facility] Does the patient have Congenital Heart Disease?: Does patient require sedation?: Sedation rationale: XR Chest PA & Lateral (Generic) [46124 32740 Custom] 03/26/2024 09/25/2024 Process Instructions: Scheduling Instructions: Questions: Portable exam?: Reason for exam and clinical history: s/p avr/cabg Clinical information / jerome questions for radiologist: Stat read required?: Date of injury if applicable: Requested Time: Where will study be performed?: [facility] Radiology Referral to Cardiac Rehab [SBE258 Custom] As directed Process Instructions: If no progress note charted, please enter Clinical details in comments. Scheduling Instructions: Questions: My question or request is: s/p AVR/CABG. Cardiac rehab at [facility]. Referral to Home Health [REF34 Custom] As directed Process Instructions: If no progress note charted, please enter Clinical details in comments. Scheduling Instructions: Comments: Please evaluate Karlos Garcia for admission to Home Health. [address] Phone Number: Date of : 1960 Inpatient DOCUMENTATION FOR VNA SERVICES (INCLUDING THOSE PATIENTS WITH MEDICARE COVERAGE REQUIRING HOME VNA SERVICES AND/OR HOSPICE SERVICES) PATIENT'S LOCATION: Karlos Garcia [address] [employer] [phone] Liner Machine Operator Helper's Name: self/family In discussion with the attending physician, it is certified that this patient is under their care and that they, or a Nurse Practitioner, or Physician Restaurant Cook who is working directly with them, hada [...] for services as follows: HOME HEALTH AGENCY: [facility] [address] [place] [id number] RN orders: Cardiopulmonary assessment, incisional assessment, assess [...] issues please call the Cardiology Office at [phone] FOR MEDICARE ONLY: (please delete this section [...] [facility] [address] FAX [phone] Date: 02/24/2024 CC: Aparna Jordan, MAURI Jordan, Aparna Sherman APRN [address] [place] [address] documented in this encounter Discharge Instructions * [...] Hayder Graham and/or the Cardiac Surgery Physician Restaurant Cook Team may be reached at . Antibiotic [...] Please refer to the card with the [place] Heart Association Guidelines for more information. You [...] Dr. Hayder Graham. You may use a [place] Track or treadmill but avoid any pulling [...] friends, go to a movie, go to episcopalian, etc. Heavy activities: No hunting, skiing, jogging, [...] should resume a low fat, low cholesterol, [place] Heart Association Diet. Driving: No driving until [...] while being managed by your PCP and/or Soiled Linen Distributor. For future medication refills, please refer to your PCP and/or Soiled Linen Distributor after your discharge from our service. Thank you REMOVE CHEST TUBE SUTURES ON OR AFTER 03/02/24 Home oxygen therapy: N/A Follow up appointments: You should follow up with your PCP, Aparna Jordan APRN, in 1-2 weeks. Our office will schedule an appointment with your Soiled Linen Distributor, Neftali Ernandez MD , in 2 weeks. You have an appointment with your Cardiac Surgeon, Dr. Hayder Graham, 4 weeks with a chest x-ray, EKG, and Echo before your appointment. Cardiac Rehabilitation: Karlos Garcia was seen regarding participation in the outpatient Phase 2Cardiac Rehabilitation at [facility]. The patient agrees to a referral [...] 0600 and on the weekends please page [phone]. * Eric Barahona PA - 02/23/2024 9:27 [...] 0600 and on the weekends please page [phone]. * Tiffanie Owens - 02/22/2024 2:48 PM [...] reports his dtr is coming from [place] to stay upon d/c for 10 days. 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 * Kelley Hinson QUILL MACHINE OPERATOR - 02/21/2024 10:15 AM EDT Physical [...] reports his dtr is coming from [place] to stay upon d/c for 10 days. 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 * Kelley Hinson PTA - 02/20/2024 3:32 [...] at that time Kelley Hinson PTA Pager: [phone] Physical Therapy Inpatient Rehab Department * Louisa [...] 0600 and on the weekends please page [phone]. * Maris Benavides, PT - 02/19/2024 11:22 [...] reports his dtr is coming from [place] to stay upon d/c for 10 days. 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 Precautions/Special Considerations: [...] outlined inthis evaluation. MARIS BENAVIDES, PT Pager: [phone] Physical Therapy Inpatient Rehabilitation Department Time IN / OUT: 0351-5427 Total Time: 38 (eval) minutes; * Antonio [...] dressing CDI. Saphenectomy site CDI Tubes/Lines/Drains: TPW, Elania Assessment/Plan: 63 y.o. male 2 Days Post-Op [...] 0600 and on the weekends please page [phone]. * Minnie Begum PA - 02/18/2024 8:25 [...] site CDI with SANJANA wrap Tubes/Lines/Drains: RIJ/PAC, [place], Med Ctx, L pleural CT, TPW, Naqvi [...] 0600 and on the weekends please page [phone]. * Kim Ha MOTEL KEEPER - 02/17/2024 2:25 PM EDT Respiratory Care [...] plan since last visit. Hayder Graham MD [phone] Source Note - Hayder Graham MD - [...] given written informed consent. Hayder Graham MD [phone] * Hayder Graham MD - 02/17/2024 7:00 [...] given written informed consent. Hayder Graham MD [phone] documented in this encounter Miscellaneous Notes * [...] information for follow-up Home Health & Hospice, [address] [place] [address] Cardiac Rehab, [address] [place] [address] Transportation: family or friend will provide Functional status prior to admission: Independent Home Environment: Others in the home: alone. Current Living Arrangements: home/apartment/condo. Accessibility Concerns:a few steps to enter 1 floor home. Current Functional Ability: Assistive Person and Equipment DME used at home: none DME Needed at Discharge: N/A Patient is insured through: Primary Insurance: [employer] Payor: [facility] / Plan: [facility] PPO / Product Type: *No Product type* [...] pain managed with scheduled Tylenol. Worked with [email or web address]. Ambulated in the roque multiple times during [...] anticipated Patient is insured through: Primary Insurance: [facility] Payor: [facility] / Plan: [facility] PPO / Product Type: *No Product type* / Secondary Insurance: N/A Last Physical Therapy Recommendation: home with home health (Str coming to stay for a week or two upon d/c) with to be determined (owns rolling walker, shower seat) Plan for discharge is: Home w/ Services Outpatient Agency/Support Group Needs: Homecare agency Home Health Services: Physical Therapy, Registered Nurse Agency Referrals: [facility]. [address] [place] [address] Transportation: family or friend will provide Barriers to discharge: Discharge planning Plan going forward: Service Care Management will continue to follow and assist with discharge planning and coordination of care as indicated. Anticipated Date of Discharge: 02/22/2024 Rhett Bell RN RN/CM - Cellphone: [phone] Pager: [phone] Covering Service RN/CM * Plan of Care [...] the outpatient Phase 2 Cardiac Rehabilitation at [facility]. The patient agrees to a referral [...] 180 days) Any patient receiving care in [place] must abide by [place] law. The hierarchy [...] (i) The agent with financial power of wide piece goods inspector or a conservator appointed in accordance with [...] steady place to sleep or slept in [facility] (including now)?: No In the past 12 months has the [employer], gas, oil, or water [employer] threatened to shut off services in your [...] [address] [facility] [address] Physical address: [address] [facility], [address] Social & Family Supports: All names listed [...] Information: none noted Health/Prescription Coverage: Primary Insurance: [facility] Payor: [facility] / Plan: [facility] PPO / Product Type: *No Product type* / Secondary Insurance: N/A ; Prescription Coverage: Yes Preferred Pharmacy: [id number] [address] Status: Patient is a : No Primary Care Provider confirmed: Aparna Jordan APRN [phone] Patient/Caregiver Goals of Treatment: dc to home Potential Needs for Transition of Care: home health care Agency Referrals: I have met with the patient to: discuss discharge planning needs. provide the [facility], Office of Care Management letter from the Nanoscience Technician pertaining to rehab referrals. provide a letter describing our affiliations within the [facility] and educate about their right to choose where referrals are sent. provide a list of Home Health Agencies / Durable Medical Equipment vendors which serve their preferred geographic area. provided patient with [facility] Star Quality Rating handout. They have requested referrals to: [facility] [address] [place] [address] Note routed to a Hand Mold Maker who will communicate referrals to facilities and [...] Cielo, will be coming in from [place] on 02/18, to stay with him , [...] Reina Greene RN CM, BSN, CMGT- Ext [phone] * Plan of Care - Binta Trinidad [...] Operative Note Patient Name: Karlos Garcia : [id number] MR#: [id number] Case Date: 02/17/2024 Surgeon: Surgeon(s) and Role: * Hayder Graham MD - Primary * Neftali Menon PA - Physician Restaurant Cook Preoperative diagnosis: CAD Postoperative diagnosis: CAD, intraoperative [...] Operative Note Patient Name: Karlos Garcia : [id number] MR#: [id number] Case Date: 02/17/2024 Surgeon: Surgeons and Role: * Hayder Graham MD - Primary * Neftali Menon PA - Physician Restaurant Cook Preoperative diagnosis: CAD Postoperative diagnosis: CAD, intraoperative [...] PM EST Office Visit Cardiology at [address] [address] Neftali Ernandez MD [facility] [place] [address] Scheduled Orders Name Type Priority Associated Diagnoses [...] Aortic Valve Open W Cardiopulmonary Bypass Homogrf/Stent (36471) Yes 02/17/2024 7:28 AM EDT CAD Cabg, Artery-Vein, Two (16566) Yes 02/17/2024 7:28 AM EDT CAD Cabg, Arterial, Single (69751) Yes 02/17/2024 7:28 AM EDT CAD Endoscopy W/Video-Asst Vein [place], Cabg (53922) Yes 02/17/2024 7:28 AM EDT CAD POCT [...] CHEMISTRY ORDERABLE S [facility] [place] [address] * (ABNORMAL) Basic Metabolic Panel (non-fasting) (02/23/2024 [...] MD CHEMISTRY ORDERABLES [facility] [place] [address] * Potassium (02/22/2024 4:30 AM EDT) Potassium [...] CHEMISTRY ORDERABLE S [facility] [place] [address] * (ABNORMAL) Basic Metabolic Panel (non-fasting) (02/21/2024 [...] 31 [facility] Comment:Add-on request. Yolanda le too [...] MD CHEMISTRY ORDERABLES [facility] [place] [address] * Lactate, whole blood, send to lab ([facility]) (02/21/2024 9:45 AM EDT) [facility] Lactate WB 2.0 0.5 - 2.2 mmol/L [facility] Blood 02/21/2024 9:45 AM EDT 02/21/2024 9:52 AM EDT Narrative Resulting Agency Comment Spec In Lab Hayder Graham MD CHEMISTRY ORDERABLE S Performing Organization Address [facility] Co de Phone Number [facility] [place] [address] * (ABNORMAL) Hepatic Function Panel (02/21/2024 9:45 AM EDT) [facility] Protein, Total 5.7(L) 6.1 - 8.0 [...] CHEMISTRY ORDERABLE S [facility] [place] [address] * Lipase (02/21/2024 9:45 AM EDT) Lipase 56 0 - 60 unit/L [facility] Blood 02/21/2024 9:45 AM EDT 02/21/2024 9:52 AM EDT Narrative Resulting Agency Comment Spec In Lab Hayder Graham MD CHEMISTRY ORDERABLE S [facility] [place] [address] * Amylase (02/21/2024 9:45 AM EDT) Amylase 69 28 - 100 unit/L [facility] Blood 02/21/2024 9:45 AM EDT 02/21/2024 9:52 AM EDT Narrative Resulting Agency Comment Spec In Lab Hayder Graham MD CHEMISTRY ORDERABLE S Performing Organization Address City/[facility]/ZIP Co de Phone Number [facility] [place] [address] * Potassium (02/21/2024 3:08 AM EDT) Potassium [...] CHEMISTRY ORDERABLE S [facility] [place] [address] * XR Chest PA & Lateral (Generic) (02/20/2024 10:19 AM EDT) WORKSTATION ID [id number] RAD Anatomical Region Laterality Modality Chest N/A Digital Radiogra phy Impressions 02/20/2024 1:11 PM EDT Small pleural effusions. No pneumothorax Thank you for letting us participate in the care of this patient. ??If you are a health care provider and have any questions regarding this report, please contact the number below. ??For patients who have questions please contact the health care aid that requested your imaging first. ? Electronically signed by: Rogerio Cruz MD, [facility] ??([phone]), at 02/20/2024 1:11 PM Narrative 02/20/2024 1:11 PM EDT EXAMINATION: XR CHEST PA AND LATERAL (GENERIC) CLINICAL HISTORY: s/p AVR/CABGx3 TECHNIQUE: PA and lateral views of the chest COMPARISON: 02/17/2024 FINDINGS: Support devices: Interval removal of Ranson-Kaila catheter, endotracheal tube and mediastinal chest tubes The cardiac silhouette is stable status post median sternotomy, CABG and aortic valve replacement. There are small pleural effusions. No pneumothorax. Procedure Note Rogerio Cruz MD - 02/20/2024 EXAMINATION: XR CHEST PA AND LATERAL (GENERIC) CLINICAL HISTORY: s/p AVR/CABGx3 TECHNIQUE: PA and lateral views of the chest COMPARISON: 02/17/2024 FINDINGS: Support devices: Interval removal of Ranson-Kaila catheter, endotracheal tubeand mediastinal chest tubes The [...] who have questions please contactthe health care aid that requested your imaging first. Electronically signed by: Rogerio Cruz MD, [facility]([phone]), at 02/20/2024 1:11 PM Hayder Graham MD IMG DX ORDERABLES * Scan, Peripheral Blood (02/20/2024 4:23 AM EDT) Pathologist [facility] Plat estimate Decreased [facility] RBC Morphology Normal [facility] Blood 02/20/2024 4:23 AM EDT 02/20/2024 4:42 AM EDT Narrative Resulting Agency Comment Spec In Lab Minnie FRENCH HEMATOLOGY CECILIO ALEMAN [facility] [place] [id number] * (ABNORMAL) Differential, Automated (02/20/2024 4:23 AM EDT) [facility] Neutrophil % 81.7 % [facility] Neutrophil Absolute 10.37(H) 1.70 - 6.10 x10(3)/mc L [facility] Lymph % 7.4 % [facility] Lymphocytes Abs 0.9 0.9 - 3.2 x10(3)/mc L [facility] Monocyte % 9.7 % [facility] Monocyte Abs 1.2(H) 0.3 - 0.9 x10(3)/mc L [facility] Eos % 0.1 % [facility] Eosinophils Abs 0.0 0.0 - 0.4 x10(3)/mc L [facility] Basophil % 0.2 % [facility] [...] HEMATOLOGY CECILIO ALEMAN [facility] [place] [address] * (ABNORMAL) Hemogram (02/20/2024 4:23 AM EDT) White Blood Cell 12.7(H) 4.0 - 9.5 x10(3)/ L [facility] [...] 88(L) 145 - 357 x10(3)/ L [facility] RDW Standard Deviation 43.5 36.0 - 45.0 fL [facility] RDW coefficient of variation 13.7 11.4 - 13.8 % [facility] Mean Platelet Volume 10.2 7.6 - 12.9 fL [facility] NRBC% auto 0.0 % [facility] NRBC Absolute 0.000 0.000 - 0.000 x10(3)/mc L [facility] Blood 02/20/2024 4:23 AM EDT 02/20/2024 4:42 AM EDT Narrative Resulting Agency Comment Spec In Lab Minnie FRENCH HEMATOLOGY CECILIO ALEMAN [facility] [place] [address] * (ABNORMAL) Basic Metabolic Panel (non-fasting) (02/20/2024 4:23 AM EDT) Glucose 113 65 - 199 mg/dL [facility] Comment:Diabetes: >=200 mg/d L plus symptoms Blood Urea Nitrogen 20 10 - 20 mg/dL [facility] Comment:result rechecked-[place] Creatinine 0.71(L) 0.80 - 1.50 mg/dL [facility] [...] CHEMISTRY ORDERABLE S Performing Organization Address [facility] Co de Phone Number [facility] [place] [address] * Potassium (02/19/2024 3:57 AM EDT) Potassium [...] CHEMISTRY ORDERABLE S Performing Organization Address [facility]/ZIP Co de Phone Number [facility] [place] [address] * POCT Glucose (02/18/2024 8:24 AM EDT) Glucose, POC 157 65 - 199 mg/dL [facility] Comment: Supplemental ranges: <140 mg/dL before meals <180 mg/dL all other times of the day Blood 02/18/2024 8:24 AM EDT 02/18/2024 8:24 AM EDT Hayder Graham MD POINT OF CARE TEST ORDERABLES Performing Organization Address City/[facility]/ZIP Co de Phone Number [facility] [place] [address] * Scan, Peripheral Blood (02/18/2024 1:40 AM EDT) Plat estimate Decreased [facility] RBC Morphology Normal [facility] Blood 02/18/2024 1:40 AM EDT 02/18/2024 1:56 AM EDT Narrative Resulting Agency Comment Spec In Lab Neftali FRENCH HEMATOLOGY ORDER OLE Performing Organization Address City/[facility] Co de Phone Number [facility] [place] [address] * (ABNORMAL) Differential, Automated (02/18/2024 1:40 AM EDT) [facility] Neutrophil % 87.1 % [facility] Neutrophil Absolute 15.03(H) 1.70 - 6.10 x10(3)/mc L [facility] Lymph % 3.0 % [facility] Lymphocytes Abs 0.5(L) 0.9 - 3.2 x10(3)/mc L [facility] Monocyte % 9.1 % [facility] Monocyte Abs 1.6(H) 0.3 - 0.9 x10(3)/mc L [facility] Eos % 0.0 % [facility] Eosinophils Abs 0.0 0.0 - 0.4 x10(3)/mc L [facility] Basophil % 0.2 % [facility] [...] 0.10(H) 0.00 - 0.04 x10(3)/mc L [facility] Blood 02/18/2024 1:40 AM EDT 02/18/2024 1:56 AM EDT Narrative Resulting Agency Comment Spec In Lab Neftali FRENCH HEMATOLOGY ORDER OLE [facility] [place] [address] * (ABNORMAL) Hemogram (02/18/2024 1:40 AM EDT) White Blood Cell 17.2(H) 4.0 - 9.5 x10(3)/mc L [facility] NRBC% auto 0.0 % [facility] NRBC Absolute 0.000 0.000 - 0.000 x10(3)/mc L [facility] Blood 02/18/2024 1:40 AM EDT 02/18/2024 1:56 AM EDT Narrative Resulting Agency Comment Spec In Lab Neftali FRENCH HEMATOLOGY ORDER OLE [facility] [place] [address] * (ABNORMAL) Basic Metabolic Panel (non-fasting) (02/18/2024 [...] CHEMISTRY ORDERABLE S [facility] [place] [address] * (ABNORMAL) Troponin (02/18/2024 1:40 AM EDT) Pathologist [facility] Troponin-T, High Sensitivity 342(H) <=22 ng/L [facility] [...] found in the [facility] Laboratory Test Catalog Troponin - [facility] Laboratory Test Catalog Reference: Fourth Axtell Definition of Myocardial Infarction. Journal of the [place] [employer] 2018;72:5550-6473 Blood 02/18/2024 1:40 AM EDT 02/18/2024 1:56 AM EDT Narrative Resulting Agency Comment Spec In Lab Hayder Graham MD CHEMISTRY ORDERABLE S Performing Organization Address [facility] Co de Phone Number [facility] [place] [address] * POCT Glucose (02/17/2024 8:13 PM EDT) Glucose, POC 142 65 - 199 mg/dL [facility] Comment: Supplemental ranges: <140 mg/dL before meals <180 mg/dL all other times of the day Blood 02/17/2024 8:13 PM EDT 02/17/2024 8:13 PM EDT Hayder Graham MD POINT OF CARE TEST ORDERABLES Performing Organization Address [facility] de Phone Number [facility] [place] [address] * POCT Glucose (02/17/2024 5:42 PM EDT) Glucose, POC 160 65 - 199 mg/dL [facility] Comment: Supplemental ranges: <140 mg/dL before meals <180 mg/dL all other times of the day Blood 02/17/2024 5:42 PM EDT 02/17/2024 5:42 PM EDT Hayder Graham MD POINT OF CARE TEST ORDERABLES Performing Organization Address [facility] Co de Phone Number [facility] [place] [address] * Hemoglobin (02/17/2024 5:42 PM EDT) Hemoglobin 13.7 13.7 - 16.5 g/dL [facility] Blood 02/17/2024 5:42 PM EDT 02/17/2024 6:10 PM EDT Narrative Resulting Agency Comment Spec In Lab Hayder Graham MD HEMATOLOGY ORDERABL ES Performing Organization Address [facility]/ZIP Co de Phone Number [facility] [place] [address] * Potassium (02/17/2024 5:42 PM EDT) Pathologist [facility] Potassium 4.3 3.5 - 5.0 mmol/L [facility] [...] CHEMISTRY ORDERABLE S Performing Organization Address [facility] Co de Phone Number [facility] [place] [address] * (ABNORMAL) BLOOD GAS 2 ARTERIAL (02/17/2024 [...] [facility] FIO2 Art 40 % [facility] PF Ratio Art 195 [facility] Blood 02/17/2024 4:18 PM EDT 02/17/2024 4:18 PM EDT Hayder Graham MD POINT OF CARE TEST ORDERABLES Performing Organization Address City/State/[facility] Co de Phone Number [facility] [place] [address] * XR Chest One View (02/17/2024 1:44 PM EDT) BPeSA WORKSTATION ID [id number] RAD Anatomical Region Laterality Modality Chest N/A Digital Radiogra phy Impressions 02/17/2024 2:12 PM EDT 1. ??No definite pleural fluid collection or pneumothorax. 2. ??Right IJ Ranson-Kaila catheter tip terminates in a descending branch [...] have questions please contact the health care aid that requested your imaging first. ? Electronically signed by: Denzel Hankins MD, [facility] ??([phone]), at 02/17/2024 2:12 PM Narrative 02/17/2024 2:12 PM EDT EXAMINATION: XR CHEST ONE VIEW CLINICAL HISTORY: s/p avr/cabg eval effusions TECHNIQUE: 1 view of the chest COMPARISON: Chest x-ray 01/09/2024, chest CT 02/03/2024 FINDINGS: ET tube tip terminates 5.2 cm above the carlos. Right IJ Ranson-Kaila catheter tip terminates in a descending branch [...] 5.2 cm above the carlos. Right IJ Ranson-Ganzcatheter tip terminates in a descending branch of [...] fluid collection or pneumothorax. 2. Right IJ Ranson-Kaila catheter tip terminates in a descending branch ofthe right pulmonary artery. Suggest catheter retraction. 3. Additional support lines and tubes as above. Thank you for letting us participate in the care of this patient. If youare a health care provider and have any questions regarding this report,please contact the number below. For patients who have questions please contactthe health care aid that requested your imaging first. Electronically signed by: Denzel Hankins MD, [facility]([phone]), at 02/17/2024 2:12 PM Hayder Graham MD [...] [facility] FIO2 Art 100 % [facility] PF Ratio Art 320 [facility] Blood 02/17/2024 1:31 PM EDT 02/17/2024 1:31 PM EDT Hayder Graham MD POINT OF CARE TEST ORDERABLES [facility] [place] [address] * (ABNORMAL) Coox2 (02/17/2024 1:21 PM EDT) pO2, Coox 44 mmHg [facility] Hgb Blood Gas 13.1(L) [...] CARE TEST ORDERABLES [facility] [place] [address] * (ABNORMAL) BLOOD GAS 2 ARTERIAL (02/17/2024 [...] OF CARE TEST ORDERABLES Performing Organization Address [facility] Co de Phone Number [facility] [place] [address] * (ABNORMAL) Fibrinogen (02/17/2024 12:10 PM EDT) [...] HEMATOLOGY ORDERABLE S Performing Organization Address [facility] Co de Phone Number [facility] [place] [address] * (ABNORMAL) Thrombin time (02/17/2024 12:10 PM [...] HEMATOLOGY ORDERABLE S Performing Organization Address [facility] Co de Phone Number [facility] [place] [address] * APTT (02/17/2024 12:10 PM EDT) Partial [...] HEMATOLOGY ORDERABLE S Performing Organization Address [facility]/ZIP Co de Phone Number [facility] [place] [address] * (ABNORMAL) Prothrombin Time (02/17/2024 12:10 PM [...] HEMATOLOGY ORDERABLE S [facility] [place] [address] * (ABNORMAL) Hemogram (02/17/2024 12:10 PM EDT) [...] [facility] NRBC% auto 0.0 % [facility] NRBC Absolute 0.000 0.000 - 0.000 x10(3)/mc L [facility] Blood 02/17/2024 12:1 0 PM EDT 02/17/2024 12:19 PM EDT Narrative Resulting Agency Comment Spec In Lab Tara York MD HEMATOLOGY ORDERABLE S [facility] [place] [address] * (ABNORMAL) BLOOD GAS 2 ARTERIAL (02/17/2024 [...] [facility] Comment: Noted by chemist instrumentation. Please note: Patients with WBC >100,000 may [...] CARE TEST ORDERABLES [facility] [place] [address] * (ABNORMAL) BLOOD GAS 2 ARTERIAL (02/17/2024 [...] [facility] Comment: Noted by chemist instrumentation. Please note: Patients with WBC >100,000 may [...] OF CARE TEST ORDERABLES Performing Organization Address [facility]/ZIP Co de Phone Number [facility] [place] [address] * (ABNORMAL) Hemoglobin and Hematocrit, blood (02/17/2024 11:04 AM EDT) Pathologist [facility] Hemoglobin 9.6(L) 13.7 - 16.5 g/dL [facility] [...] MD HEMATOLOGY ORDERABL ES Performing Organization Address City/[facility]/ZIP Co de Phone Number [facility] [place] [address] * (ABNORMAL) Platelet count (02/17/2024 11:04 AM EDT) Pathologist [facility] Platelet 106(L) 145 - 357 x10(3)/mc L [facility] Immature Plt % 1.6 0.0 - 7.4 % [facility] Comment: Limitation of the Immature Platelet Fraction (IPF)-May be less reliable when the platelet count is less than 61q545/uL due to statistical imprecision. The IPF value [...] in a decreased state of production. References: [employer] The Clinical Value of the Immature Platelet Fraction (IPF) in Cell Recovery Document Number [id number] 03/2011 [employer] The Role of the Immature Platelet Fraction (IPF) in the Differential Diagnosis of Thrombocytopenia, Document [id number] V002/15/14 P014 Blood 02/17/2024 11:0 4 AM EDT 02/17/2024 11:12 AM EDT Narrative Resulting Agency Comment Spec In Lab Hayder Graham MD HEMATOLOGY ORDERABL ES Performing Organization Address City/State/[facility] Co de Phone Number [facility] [place] [address] * (ABNORMAL) Fibrinogen (02/17/2024 11:04 AM EDT) [...] HEMATOLOGY ORDERABL ES [facility] [place] [address] * (ABNORMAL) BLOOD GAS 2 ARTERIAL (02/17/2024 [...] CARE TEST ORDERABLES [facility] [place] [address] * (ABNORMAL) BLOOD GAS 2 ARTERIAL (02/17/2024 [...] CARE TEST ORDERABLES [facility] [place] [address] * Surgical Pathology Report (02/17/2024 10:01 AM EDT) Final Diagnosis [id number] ? Location: [facility]; [facility]; The signing pathologist has (i) examined the relevant preparation(s) for the specimen(s) and (ii) rendered or confirmed the diagnosis(es). . ?Surgical Pathology DIAGNOSIS Aortic valve leaflets, excision: Valve leaflets with myxoid degeneration, nodular fibrosis and dystrophic calcifications. Electronically signed by: ?Lindsay FERNANDEZ, Livier Gonzalez Verified: ??02/24/2024 13:49 ??Pathologist Performed at: ??-[facility] [place], [place] [address] Nanoscience Technician: Job Brewer MD, FCAP, ??CLIA Certificate: [id number] SPECIMEN(S) SUBMITTED A - Aortic Valve Leaflets, [...] Sections Processing Blocks submitted for decalcification: A1. Consumer Marketing Analyst sections in 1 cassette labeled A1. ??ajw 02/24/2024 1:49 PM EDT [facility] AORTIC STRUCTURE / Unknown 02/17/2024 10:01 AM EDT 02/17/2024 10:01 AM EDT Hayder Graham MD PATHOLOGY/CYTOLOGY ORDERABLES Performing Organization Address City/[facility]/ZIP Co de Phone Number [facility] [place] [address] * Specimen to Pathology (02/17/2024 10:01 AM EDT) AP Specimen 02/17/2024 10:0 1 AM EDT 02/17/2024 10:01 AM EDT Narrative [facility] - 02/17/2024 10:01 AM EDT Specimen requisition ordered. ??Separate Pathology report to follow Hayder Graham MD PATHOLOGY/CYTOLOGY ORDERABLES Performing Organization Address City/[facility]/ZIP Co de Phone Number [facility] [place] [address] * (ABNORMAL) BLOOD GAS 2 ARTERIAL (02/17/2024 [...] CARE TEST ORDERABLES [facility] [place] [address] * (ABNORMAL) BLOOD GAS 2 VENOUS (02/17/2024 9:34 AM EDT) pH, Venous 7.22(Criti marquez) 7.32 - 7.42 [facility] Comment:Noted by chemist instrumentation. PCO2, Venous 43 41 - 51 mmHg [facility] Comment:Noted by chemist instrumentation. PO2, Venous 57(H) 25 - 40 mmHg [facility] Comment:Noted by chemist instrumentation. Bicarbonate, Venous 17.1 mmol/L [facility] Comment:Noted by chemist instrumentation. Base Excess, Venous -10.6 mmol/L [facility] Comment:Noted by chemist instrumentation. Hgb Blood Gas 11.2(L) 13.7 - 16.5 g/dL [facility] Comment:Noted by chemist instrumentation. Oxyhemoglobin, Venous 86.5 % [facility] Comment:Noted by chemist instrumentation. Carboxyhemoglob in, Venous 0.3 % [facility] Comment: Noted by chemist instrumentation. Nonsmokers: 0.5-1.5% COHB Smokers: Variable, but usually less than 10% Toxic: 20-30% COHB Lethal: Greater than 60% COHB Methemoglobin, Venous 0.0 <=1.5 % [facility] Comment:Noted by chemist instrumentation. Na Whole Blood 156(H) 135 - 145 mmol/L [facility] Comment:Noted by chemist instrumentation. K Whole Blood 5.5(H) 3.5 - 5.0 mmol/L [facility] Comment: Noted by chemist instrumentation. Please note: Patients with WBC >100,000 may have falsely elevated Potassium levels. Contact the Clinical Chemistry Laboratory if there are any questions. ICa Whole Blood 1.03(L) 1.15 - 1.33 mmol/L [facility] Comment: Noted by chemist instrumentation. Note: ??Total bilirubin higher than 20 mg/dL may lead to falsely low ionized calcium. CL Whole Blood 100 98 - 107 mmol/L [facility] Comment:Noted by chemist instrumentation. Gluc Whole Bld 132 65 - 199 mg/dL [facility] Comment: Noted by chemist instrumentation. Diabetes: >=200 mg/dL plus symptoms Lactate WB 1.0 0.5 - 2.2 mmol/L [facility] Comment:Noted by chemist instrumentation. Blood Gas Source Venous [facility] Blood 02/17/2024 9:34 AM EDT 02/17/2024 9:34 AM EDT Hayder Graham MD POINT OF CARE TEST ORDERABLES [facility] [place] [address] * (ABNORMAL) BLOOD GAS 2 ARTERIAL (02/17/2024 [...] OF CARE TEST ORDERABLES Performing Organization Address [facility] Co de Phone Number [facility] [place] [address] * POCT Glucose (02/17/2024 6:38 AM EDT) Glucose, POC 98 65 - 199 mg/dL [facility] Comment: Supplemental ranges: <140 mg/dL before meals <180 mg/dL all other times of the day Blood 02/17/2024 6:38 AM EDT 02/17/2024 6:38 AM EDT Hayder Graham MD POINT OF CARE TEST ORDERABLES Performing Organization Address [facility] Co de Phone Number [facility] [place] [address] * Transesophageal Echo/OR (02/17/2024 6:33 AM EDT) [...] [facility]-operative [facility] cardiac function [...] Polo Britton, COLBY) 09 (Given - Provider: Mihsel Merrill, COLBY)1500 (Given - Provider: Mishel Merrill [...] Routine 910 (Given - Provider: Mishel Merrill, OCLBY)2114 (Given - Provider: Otis Crook, COLBY) 08 [...] Britton, COLBY)0817 (Given - Provider: Reilly Vincent, CLOBY)1409 (Given - Provider: Ingrid Menjivar RN)2101 (Given [...] Routine documented in this encounter Care Teams Pleater Hand Relationship Specialty Start Date End Date Aparna Jordan APRN PCP - General Family Medicine 10/21/23 05/26/24 documented as of this encounter
== END 2024-06-06 23:59 | disposition home or self-care (01) ==
LOC: CR 08:18
PROVIDERS: PCP Nurse Practitioner Family; Visit Provider Internal Medicine Cardiovascular Disease
DX: I25.810 Atherosclerosis of coronary artery bypass graft(s) without angina pectoris (principal); Z95.2 Presence of prosthetic heart valve; Z51.89 Encounter for other specified aftercare
CPT/HCPCS: S9472

== ENCOUNTER 2024-06-29 08:01 | Outpatient (RCR) | payer OTHER, SELFPAY ==
--- OUTSIDE RECORDS SUMMARY | 2024-06-10 08:38 | XMS_ITS | Encounter Summary ---
Author Organization [facility] Address [facility] [place] [address] Care Team Providers Care Order Administrator Name Role Phone Vanessa Christian MAURI Primary Care Provider [phone] Encounter Details Date Type Department Care Team (Latest Contact Info) Description 05/27/2024 Travel Social History Tobacco Use Types Packs/Day Years Used Date Smoking Tobacco: Former Cigarettes Smokeless Tobacco: Never Comments:Quit 15 + years ago Alcohol Use Standard Drinks/Week Comments Yes 0 (1 standard drink = 0.6 oz pur e alcohol) rare [facility] Utilities Answer Date Recorded In [...] PM EST Office Visit Cardiology at [address] [address] Neftali Ernandez MD [facility] [place] [address] documented as of this encounter Visit Diagnoses Not on filedocumented in this encounter Care Teams Order Administrator Relationship Specialty Start Date End Date Vanessa Christian APRN [address] [place] [address] PCP - General Family Medicine 05/27/24 documented as of this encounter
--- OUTSIDE RECORDS SUMMARY | 2024-06-10 08:38 | XMS_ITS | Encounter Summary ---
Author Organization [facility] Address [facility] [place] [address] Care Team Providers Care Baseball Winder Name Role Phone Vanessa Christian MAURI Primary Care Provider [phone] Encounter Details Date Type Department Care Team (Latest Contact Info) Description 03/12/2024 1:30 PM EDT - 03/12/2024 11:59 PM EDT Hospital Encounter XRay at [address] [place] [address] Coronary artery disease, unspecified vessel or lesion type, unspecified whether angina present, unspecified whether kake or transplanted heart Discharge Disposition: Home Social History Tobacco Use Types Packs/Day Years Used Date Smoking Tobacco: Former Cigarettes Smokeless Tobacco: Never Comments:Quit 15 + years ago Alcohol Use Standard Drinks/Week Comments Yes 0 (1 standard drink = 0.6 oz pur e alcohol) rare [facility] Utilities Answer Date Recorded In the past 12 months has e [employer], gas, oil, or water [employer] threatened to shut off services in your [...] 3:00 PM EST Office Visit Cardiology at [address] [place] [address] Neftali Ernandez MD [facility] [place] [address] documented as of this encounter Procedures Procedure Name Priority Date/Time Associated Diagnosis Comments XR CHEST PA AND LATERAL Routine 03/12/2024 1:42 PM EDT Coronary artery disease, unspecified vessel or lesion type, unspecified whether angina present, unspecified whether kake or transplanted heart documented in this encounter Results * XR Chest PA & Lateral (Generic) (03/12/2024 1:42 PM EDT) WORKSTATION ID [id number] RAD Anatomical Region Laterality Modality Chest N/A [...] questions please contact the health customer care associate that requested your imaging first. ? 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 Electronically signed by: Augie Sanchez MD, [facility]([phone]), at 03/13/2024 8:28 AM Zak Farmer MD IMG DX ORDERABLES documented in this encounter Visit Diagnoses Diagnosis Coronary artery disease, unspecified vessel or lesion type, unspecified whether angina present, unspecified whether kake or transplanted heart documented in this encounter Care Teams Baseball Winder Relationship Specialty Start Date End Date Vanessa Christian, MAURI PCP - General Family Medicine 10/21/23 05/26/24 documented as of this encounter
--- OUTSIDE RECORDS SUMMARY | 2024-06-10 08:38 | XMS_ITS | Referral Summary ---
Author Organization [facility] Address [address] [place] [address] Care Team Providers Care Pharmacy Clinical Coordinator Name Role Phone Filidayna Vanessa Sherman NP Primary Care Provider [phone] Social History Tobacco Use Types Packs/Day Years Used Date Smoking Tobacco: Never Assessed Sex and Gender Information Value Date Recorded Sex Assigned at Not on file Gender Identity Not on file Sexual Orientation Not on file Plan of Treatment Not on file Care Teams Pharmacy Clinical Coordinator Relationship Specialty Start Date End Date Vanessa Christian NP [address] [place] [address] PCP - General Family Medicine - Primary Care 10/07/23
--- OUTSIDE RECORDS SUMMARY | 2024-06-10 08:38 | XMS_ITS | Encounter Summary ---
Author Organization [facility] Address [facility] [place] [address] Care Team Providers Care Molder Automobile Carpets Name Role Phone Vanessa Christian SPECIAL EFFECTS TECHNICIAN Primary Care Provider [phone] Encounter Details Date Type Department Care Team (Late st Contact Info) Description 03/12/2024 2:40 PM EDT Office [place] [id number] Zak Farmer MD [facility] [place] [address] Coronary artery disease, unspecified vessel or lesion type, unspecified whether angina present, unspecified whether [place] or transplanted heart Social History Tobacco Use Types Packs/Day Years Used Date Smoking Tobacco: Former Cigarettes Smokeless Tobacco: Never Comments:Quit 15 + years ago Alcohol Use Standard Drinks/Week Comments Yes 0 (1 standard drink = 0.6 oz pur e alcohol) rare [facility] Utilities Answer Date Recorded In the past 12 months has e [employer], gas, oil, or water [employer] threatened to shut off services in your [...] 2:40 PM EDT To: MD Vanessa Coles, SPECIAL EFFECTS TECHNICIAN Re; Karlos Santa ( 1960) We had [...] office. Best personal regards, Zak Farmer MD [phone] documented in this encounter Plan of Treatment Upcoming Encounters Date Type Department Care Team (Late st Contact Info) Description 11/30/2024 3:00 PM EST Office Visit Cardiology at [address] [place] [address] Neftali Ernandez MD [facility] [place] [address] documented as of this encounter Procedures Procedure Name Priority Date/Time Associated Diagnosis Comments EKG 12-LEAD Routine 03/12/2024 2:35 PM EDT Coronary artery disease, unspecified vessel or lesion type, unspecified whether angina present, unspecified whether [place] or transplanted heart documented in this encounter Results * EKG 12 Lead (03/12/2024 2:35 PM EDT) Ventricular rate 59 BPM MUSE SYSTEM Atrial Rate 59 BPM MUSE SYSTEM P-R Interval 190 ms MUSE SYSTEM QRS Duration 92 ms MUSE SYSTEM Q-T Interval 406 ms MUSE SYSTEM QTC Calculated (Bezet) 401 ms MUSE SYSTEM Calculated P Forest -12 degrees MUSE SYSTEM Calculated R Forest 24 degrees MUSE SYSTEM Calculated T Forest 74 degrees MUSE SYSTEM INTERPRETATION Sinus bradycardia T wave abnormality, consider anterior ischemia Abnormal ECG When compared with ECG of 17-FEB-2024 13:24, SC interval has decreased T wave inversion now evident in Anterior leads Confirmed by Paul Guzman ([id number]) on 03/15/2024 8:36:23 AM MUSE SYSTEM 03/12/2024 2:35 PM EDT 03/15/2024 8:36 AM EDT Zak Farmer MD ECG ORDERABLES MUSE SYSTEM documented in this encounter Visit Diagnoses Diagnosis Coronary artery disease, unspecified vessel or lesion type, unspecified whether angina present, unspecified whether [place] or transplanted heart documented in this encounter Care Teams Molder [employer]obile Carpets Relationship Specialty Start Date End Date Vanessa Christian APRN PCP - General Family Medicine 10/21/23 05/26/24 documented as of this encounter
--- OUTSIDE RECORDS SUMMARY | 2024-06-10 08:38 | XMS_ITS | Encounter Summary ---
Author Organization [facility] Address [facility] [place] [address] Care Team Providers Care Pigment Grinder Name Role Phone Vanessa Christian MAURI Primary Care Provider [phone] Encounter Details Date Type Department Care Team (Latest Contact Info) Description 03/12/2024 Travel Social History Tobacco Use Types Packs/Day Years Used Date Smoking Tobacco: Former Cigarettes Smokeless Tobacco: Never Comments:Quit 15 + years ago Alcohol Use Standard Drinks/Week Comments Yes 0 (1 standard drink = 0.6 oz pur e alcohol) rare [facility] Utilities Answer Date Recorded In [...] PM EST Office Visit Cardiology at [address] [phone] Neftali Ernandez MD [facility] [place] [address] documented as of this encounter Visit Diagnoses Not on filedocumented in this encounter Care Teams Pigment Grinder Relationship Specialty Start Date End Date Vanessa Christian APRN PCP - General Family Medicine 10/21/23 05/26/24 documented as of this encounter
--- OUTSIDE RECORDS SUMMARY | 2024-06-10 08:38 | XMS_ITS | Clinical Summary ---
Author Organization [facility] Address [address] [place] [address] Care Team Providers Care Scientific Editor Name Role Phone Vanessa Christian NP Primary Care Provider [phone] Social History Tobacco Use Types Packs/Day Years [...] COVID-19 Vaccine (2022-24 season) 2023 Care Teams Scientific Editor Relationship Specialty Start Date End Date Vanessa Christian NP [address] [place] [phone] PCP - General Family Medicine - Primary Care 10/07/23
--- OUTSIDE RECORDS SUMMARY | 2024-06-10 08:38 | XMS_ITS | Encounter Summary ---
Author Organization [facility] Address [address] [place] [address] Care Team Providers Care Marketing Content Coordinator Name Role Phone Vanessa Christian Lane MONCADA Primary Care Provider [phone] Encounter Details Date Type Department Care Team (Late st Contact Info) Description 10/24/2023 Lab Requisition [facility] Pathology & Laboratory Medicine - [address] [address] Oscar Nichole MD [address] [place] [phone] Factitial dermatitis Social History Tobacco Use Types [...] management options, if applicable. 10/28/2023 11:24 EST [facility] Final Diagnosis A. SKIN OF RASTAFARIAN, LEFT, SHAVE BIOPSY: - Seborrheic keratosis, pigmented. 10/28/2023 11:24 EST [facility] Attestation By the signature below, the attending physician certifies that they have 1) personally conducted a gross and/or microscopic examination of the described specimen(s), and/or personally interpreted the results of laboratory testing of the described specimen(s), and 2) personally rendered or confirmed the above diagnosis. 10/28/2023 11:24 [facility] at [address] Microscopic Description The stratum corneum is thickened by compact and basketweave orthokeratosis with formation of horn pseudocysts. The epidermis is acanthotic with formation of broad and anastomosing trabeculae. The trabeculae are composed of basaloid keratinocytes with round uniform nuclei. The keratinocytes have a variable amount of melanin pigment. 10/28/2023 11:24 [facility] Clinical History Pigmented 2 cm patch; clinical diagnosis code: L98.1 10/28/2023 11:24 [facility] Gross Description A. Received in formalin labelled with proper patient identification (initials P, A) and left adventism is a shave biopsy of an irregular [...] A3. Nora Anderson 10/25/2023 8:47 10/28/2023 11:24 [facility] Performing Lab [facility] 10/28/2023 11:24 [facility] Scanned Images 10/28/2023 11:24 [facility] Tissue SPECIMEN FROM SKIN / Unknown 10/24/2023 14:30 EST 10/24/2023 22:04 EST Oscar Nichole MD PATHOLOGY ORDERABLES [facility] [address] [place] [address] documented in this encounter Visit Diagnoses Diagnosis Factitial dermatitis Dermatitis factitia (artefacta) documented in this encounter Care Teams Marketing Content Coordinator Relationship Specialty Start Date End Date Vanessa Christian NP [address] [place] [address] PCP - General Family Medicine - Primary Care 10/07/23 documented as of this encounter
--- OUTSIDE RECORDS SUMMARY | 2024-06-10 08:38 | XMS_ITS | Encounter Summary ---
Author Organization [facility] Address [facility] [place] [address] Care Team Providers Care Independent Producer Name Role Phone Vanessa Christian MAURI Primary [...] PM EST Office Visit Cardiology at [address] [phone] Neftali Ernandez MD [facility] [place] [address] documented as of this encounter Visit Diagnoses Not on filedocumented in this encounter Care Teams Independent Producer Relationship Specialty Start Date End Date Vanessa Christian APRN PCP - General Family Medicine 10/21/23 05/26/24 documented as of this encounter
--- OUTSIDE RECORDS SUMMARY | 2024-06-10 08:38 | XMS_ITS | Clinical Summary ---
Author Organization [facility] Address [facility] [place] [address] Care Team Providers Care Lawn Mower Name Role Phone Vanessa Christian Lane DOTSON Primary Care Provider [phone] Allergies No known active allergies Medications Medication [...] meantime will refer to SHT at [facility] for further evaluation. Logistics and preliminary review of TONY were reviewed with patient. - Refer to SHT Hypertension 08/14/2023 Resolved Problems Problem Noted Date Diagnosed Date Resolved Date Nevus of face 09/26/2023 05/27/2024 Overview (09/26/2023): Right oriental orthodox Chest pressure 08/14/2023 10/21/2023 SILVA (dyspnea on exertion) 08/14/2023 HLD (hyperlipidemia) 08/14/2023 024 Encounters Date Type Department Care Team Description 05/27/2024 11:00 AM EDT Office Visit Cardiology at [address] [place] [phone] Neftali Ernandez MD ASCVD (arteriosclerotic cardiovascular disease); Nonrheumatic aortic valve stenosis 05/27/2024 Travel 05/20/2024 Travel 03/12/2024 2:40 PM EDT Office Visit Cardiac Surgery at [facility] [place] [place] [address] Zak Farmer MD Coronary artery disease, unspecified vessel or lesion type, unspecified whether angina present, unspecified whether [place] or transplanted heart 03/12/2024 1:30 PM EDT - 03/12/2024 11:59 PM EDT Hospital Encounter XRay at [address] [place] [address] Coronary artery disease, unspecified vessel or lesion type, unspecified whether angina present, unspecified whether [place] or transplanted heart Discharge Disposition: Home 03/12/2024 [...] the past 12 months has th e [employer], gas, oil, or water [employer] threatened to shut off services in your [...] PM EST Office Visit Cardiology at [address] [place] [address] Neftali Ernandez MD [facility] [place] [address] Health Maintenance Due Date Last Done Comments CT Colonography 1959 Colonoscopy 1959 Colorectal Cancer Screening 1959 FIT DNA 1959 FIT 1959 Sigmoidoscopy (10 year) with FIT yearly 1959 Sigmoidoscopy 1959 HIV screen 1977 Hepatitis C Screening 1977 Tdap adult 1978 Tetanus vaccine 1978 Zoster vaccine (1 of 2) 2009 Advance Directive 2014 Covid-19 Vaccine (1 - season) 2024 Influenza (Flu) vaccine (1 o f 1 - Influenza standard series) 06/07/2024 Medical Devices Implanted Type Area Date Puller Device Identifier Shelf Expiration Date Model / Serial / Lot Cable,Cut,Edg ,Blnt,Ss,3tpr ([id number]) - [id number] Implanted:Qty : 1 on 02/17/2024 by Zak Farmer MD at [facility] IMPLANTS Midline: Chest [employer] - [id number] 09/02/2028 [id number] / / [id number] Valve Coronary Aortic 23mm Tissue Trnscath Biopros Inspiris ([id number]) (Autoreq) - [id number] Implanted:Qty : 1 on 02/17/2024 by Zak Farmer MD at [facility] IMPLANTS Heart [employer] - TSAI LI 09/15/2027 [id number] / [id number] / Procedures Procedure Name Priority Date/Time Associated Diagnosis Comments EKG 12-LEAD Routine 05/27/2024 11:24 AM EDT EKG 12-LEAD Routine 03/12/2024 2:35 PM EDT Coronary artery disease, unspecified vessel or lesion type, unspecified whether angina present, unspecified whether [place] or transplanted heart XR CHEST PA AND LATERAL Routine 03/12/2024 1:42 PM EDT Coronary artery disease, unspecified vessel or lesion type, unspecified whether angina present, unspecified whether [place] or transplanted heart from Last 3 Months [...] (Bezet) 367 ms MUSE SYSTEM Calculated P Pearson 12 degrees MUSE SYSTEM Calculated R Pearson 27 degrees MUSE SYSTEM Calculated T Pearson 62 degrees MUSE SYSTEM INTERPRETATION Sinus bradycardia with 1st degree A-V block Otherwise normal ECG When compared with ECG of 12-MAR-2024 14:35, T wave inversion no longer evident in Anterior leads Confirmed by MD Ernandez Daniel ([id number]) on 06/01/2024 8:36:17 AM MUSE SYSTEM 05/27/2024 11:2 4 AM EDT 06/01/2024 8:36 AM EDT Unknown ECG ORDERABLES MUSE SYSTEM * XR Chest PA & Lateral (Generic) (03/12/2024 1:42 PM EDT) WORKSTATION ID [id number] [facility] Anatomical Region Laterality Modality Chest N/A Digital [...] who have questions please contact the health team primary care physician that requested your imaging first. ? Narrative 03/13/2024 8:28 AM EDT EXAMINATION: XR CHEST PA AND LATERAL (GENERIC) CLINICAL HISTORY: s/p cabg eval effusions I25.10, Atherosclerotic heart disease of [place] coronary artery without angina pectoris TECHNIQUE: PA [...] eval effusions I25.10, Atherosclerotic heart disease of [place] coronary artery withoutangina pectoris TECHNIQUE: PA and [...] patients who have questions please contactthe health team primary care physician that requested your imaging first. Zak Farmer [...] Status decision made by: Patient Care Teams Lawn Mower Relationship Specialty Start Date End Date Vanessa Christian, MAURI [address] [place] [address] PCP - General Family Medicine 05/27/24
--- OUTSIDE RECORDS SUMMARY | 2024-06-10 08:38 | XMS_ITS | Encounter Summary ---
Author Organization [facility] Address [facility] [place] [address] Care Team Providers Care Sheriffs Name Role Phone Gino Vanessa Lane DOTSON Primary Care Provider [phone] Encounter Details Date Type Department Care Team (Late st Contact Info) Description 02/24/2024 Orders Only Cardiac Surgery [facility] [place] [phone] Trudi Lester APRN [facility] DR [place] [address] Social History Tobacco Use Types Packs/Day Years Used Date Smoking Tobacco: Former Cigarettes Smokeless Tobacco: Never Comments:Quit 15 + years ago Alcohol Use Standard Drinks/Week Comments Yes 0 (1 standard drink = 0.6 oz pur e alcohol) rare [facility] Utilities Answer Date Recorded In the past 12 months has e [employer], gas, oil, or water [employer] threatened to shut off services in your [...] PM EST Office Visit Cardiology at [address] [place] [address] Neftali Ernandez MD [facility] [place] [address] documented as of this encounter Visit Diagnoses Not on filedocumented in this encounter Care Teams Sheriffs Relationship Specialty Start Date End Date Vanessa Christian APRN PCP - General Family Medicine 10/21/23 05/26/24 documented as of this encounter
--- OUTSIDE RECORDS SUMMARY | 2024-06-10 08:38 | XMS_ITS | Encounter Summary ---
[place] [address] Care Team Providers Care Furniture Designer Name Role Phone Aparna Jordan MAURI Primary Care Provider [phone] Reason for Referral * Diagnostic Test (Routine) - New Request Specialty Diagnoses / Procedures Referred By Contac t Referred To Contact Cardiology Diagnoses S/P AVR Procedures Echocardiogram Transthoracic Neftali Menon PA [facility] [place] [address] [facility] [place] [address] Referral ID Status Reason Start Date Expiration Date Visits Requested Visits Authorized [id number] New Request Specialty Service Requested 02/24/2024 02/23/2025 1 1 * Consultation (Routine) - Authorized Specialty Diagnoses / Procedures Referred By Contac t Referred To Contact Cardiology Diagnoses S/P AVR Hayder Graham MD [facility] [place] [address] Cardiac Rehab, [facility] [address] [place] [address] [place] [address] Referral ID Status Reason Start Date Expiration Date Visits Requested Visits Authorized [id number] Authorized Consult, Test & Treat 02/24/2024 08/22/2024 36 36 * Home Health Care (Routine) - Authorized Specialty Diagnoses / Procedures Referred By Sixto mendoza Referred To Contact Diagnoses S/P AVR Hayder Graham MD [facility] [place] [address] Referral ID Status Reason Start Date Expiration Date Visits Requested Visits Authorized [id number] Authorized Consult, Test & Treat 02/24/2024 08/22/2024 [...] Graham MD [facility] [place] [address] [facility] Referral ID Status Reason Start Date Expiration Date Visits Re quested Visits Authorized [id number] 1 1 Encounter Details Date Type Department Care Team (Latest Contact Info) Description 02/17/2024 5:43 AM EDT - 02/24/2024 11:23 AM EDT Hospital Encounter Heart and Vascular Unit Level 4 [place] [address] Hayder Graham MD [facility] [place] [address] S/P AVR (Primary Dx); Aortic valve stenosis, etiology of cardiac valve disease unspecified Discharge Disposition: Home with VNA Social History Tobacco Use Types Packs/Day Years Used Date Smoking Tobacco: Former Cigarettes Smokeless Tobacco: Never Comments:Quit 15 + years ago Alcohol Use Standard Drinks/Week Comments Yes 0 (1 standard drink = 0.6 oz pur e alcohol) rare [facility] Utilities Answer Date Recorded In the [...] Patient Age: 63 y.o. Birthdate: 1960 Language: Irish Race: White Ethnicity: Not nor Admit Date: 02/17/2024 Discharge Date: 02/24/24 Attending Physician: Hayder Graham MD Follow-up Recommendations for Providers: Please continue routine management of cardiovascular risk factors including blood pressure, lipids,glucose, etc. Please note any changes to medications. Patient to follow up with PCP, Aparna Jordan APRN, in 1-2 weeks. Patient to follow up with Museum Assistant, Neftali Ernandez MD , in 2 weeks. Patient to follow up with Cardiac Surgeon, Dr. Hayder Graham, with a chest x-ray, EKG, and Echo. 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 Past Surgical History: Procedure Laterality Date PRO CABG, ARTERIAL, SINGLE N/A 02/17/2024 @CABG, USING ARTERIAL GRAFT;SINGLE ARTERIAL GRAFT (WRVU 33.75) performed by [facility]der [facility] OR PRO CABG, ARTERY-VEIN, TWO N/A 02/17/2024 @CABG, TWO VENOUS GRAFTS & ARTERIAL GRAFT (WRVU 7.93) performed by Hayder Graham MD at [facility] OR PRO ENDOSCOPY W/VIDEO-ASST VEIN HARVEST, CABG Left 02/17/2024 ENDOSCOPIC HARVEST VEIN(S) FOR CABG (WRVU 0.31) performed by Hayder Graham MD at [facility] MA[facility] OR PRO REPLACEMENT PROSTHETIC AORTIC VALVE OPEN W CARDIOPULMONARY BYPASS HOMOGRF/STENT N/A 02/17/2024 @REPLACE AORTIC VALVE, OPEN, W\CPB, W\PROSTHETIC VALVE (WRVU 41.32) performed by Hayder Graham MD at [facility] MAIN OR Prior To Admission Medications Medications [...] insufficiency. He has glaucoma. He used to [employer] until about 15 years ago. He has undergone prior herniorrhaphy. 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 Major Procedures/Operations: 02/17/24 s/p avr/cabgx3 CABG x 3 JOSE->LAD SVG->dRCA SVG->OM1 EVH from LLE AVR with a 23 mm Inspiris Bioprosthesis Hospital Course: Karlos Gracia was admitted to [facility] on 02/17/2024 via the Same Day [...] Hayder Graham and/or the Cardiac Surgery Physician Transcriptionist Team may be reached at . Antibiotic [...] Please refer to the card with the [place] Heart Association Guidelines for more information. You [...] after your return appointment with Dr. Hayder rGaham. You may use a [place] or treadmill but avoid any pulling [...] should resume a low fat, low cholesterol, Japanese Heart Association Diet. Driving: No driving until [...] while being managed by your PCP and/or Museum Assistant. For future medication refills, please refer to your PCP and/or Museum Assistant after your discharge from our service. Thank you REMOVE CHEST TUBE SUTURES ON OR AFTER 03/02/24 Home oxygen therapy: N/A Follow up appointments: You should follow up with your PCP, Aparna Jordan APRN, in 1-2 weeks. Our office will schedule an appointment with your Museum Assistant, Neftali Ernandez MD , in 2 weeks. You have an appointment with your Cardiac Surgeon, Dr. Hayder Graham, 4 weeks with a chest x-ray, EKG, and Echo before your appointment. Cardiac Rehabilitation: Karlos Garcai was seen regarding participation in the outpatient Phase 2Cardiac Rehabilitation at [facility]. The patient agrees to a referral to this program. The referral will be sent at discharge and the patient should be contacted by the Program within 1- 2 weeks from discharge. Future Appointments and Orders Future Orders Complete By Expires Echocardiogram Transthoracic [45977 CPT(R)] 03/26/2024 09/25/2024 Process Instructions: Scheduling Instructions: Questions: Where will study be performed?: [facility] Clin[facility] Does the patient have Congenital Heart Disease?: Does patient require sedation?: Sedation rationale: XR Chest PA & Lateral (Generic) [64446 51173 Custom] 03/26/2024 09/25/2024 Process Instructions: Scheduling Instructions: Questions: Portable exam?: Reason for exam and clinical history: s/p avr/cabg Clinical information / jerome questions for radiologist: Stat read required?: Date of injury if applicable: Requested Time: Where will study be performed?: [facility] Rad[facility] Referral to Cardiac Rehab [FXK904 Custom] As directed Process Instructions: If no progress note charted, please enter Clinical details in comments. Scheduling Instructions: Questions: My question or request is: s/p AVR/CABG. Cardiac rehab at [facility]. Referral to Home Health [REF34 Custom] As directed Process Instructions: If no progress note charted, please enter Clinical details in comments. Scheduling Instructions: Comments: Please evaluate Karlos Garcia for admission to Home Health. [address] Phone Number: Date of : 1960 Inpatient DOCUMENTATION FOR VNA SERVICES (INCLUDING THOSE PATIENTS WITH MEDICARE COVERAGE REQUIRING HOME VNA SERVICES AND/OR HOSPICE SERVICES) PATIENT'S LOCATION: Karlos Garcia [address] [employer] [phone] Rn Primary Care's Name: self/family In discussion with the attending physician, it is certified that this patient is under their care and that they, or a Nurse Practitioner, or Physician Transcriptionist who is working directly with them, hada [...] for services as follows: HOME HEALTH AGENCY: [facility] [address] [place] [address] RN orders: Cardiopulmonary assessment, incisional assessment, assess [...] issues please call the Cardiology Office at [phone] FOR MEDICARE ONLY: (please delete this section [...] APRN [address] / [place] [address] . All VNA agencies which cover the area of patient's residence have been reviewed, either verbally or in writing, and patient/family have chosen the home health care agency noted. Questions: Disciplines Requested: Nursing Physical Therapy Arrangements for VNA/home care: As above. Signed: NEFTALI MENON PA-C [facility] Section of Cardiac Surgery [facility] [place] [address] FAX [phone] Date: 02/24/2024 CC: Aparna Jordan, MAURI Jordan, Aparna Sherman APRN [address] [place] [address] documented in this encounter Discharge Instructions * [...] Hayder Graham and/or the Cardiac Surgery Physician Transcriptionist Team may be reached at . Antibiotic [...] Please refer to the card with the Japanese Heart Association Guidelines for more information. You [...] Dr. Hayder Graham. You may use a [place] or treadmill but avoid any pulling [...] should resume a low fat, low cholesterol, Japanese Heart Association Diet. Driving: No driving until [...] while being managed by your PCP and/or Museum Assistant. For future medication refills, please refer to your PCP and/or Museum Assistant after your discharge from our service. Thank you REMOVE CHEST TUBE SUTURES ON OR AFTER 03/02/24 Home oxygen therapy: N/A Follow up appointments: You should follow up with your PCP, Aparna Jordan APRN, in 1-2 weeks. Our office will schedule an appointment with your Museum Assistant, Neftali Ernandez MD , in 2 weeks. You have an appointment with your Cardiac Surgeon, Dr. Hayder Graham, 4 weeks with a chest x-ray, EKG, and Echo before your appointment. Cardiac Rehabilitation: Karlos Garcia was seen regarding participation in the outpatient Phase 2Cardiac Rehabilitation at [facility]. The patient agrees to [...] 0600 and on the weekends please page [phone]. * Eric Barahona PA - 02/23/2024 9:27 [...] 0600 and on the weekends please page [phone]. * Tiffanie Owens - 02/22/2024 2:48 PM [...] Pt reports his dtr is coming from [place] to stay upon d/c for 10 days. 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 * Kelley Hinson, EYE CLINIC MANAGER - 02/21/2024 10:15 AM EDT Physical Therapy [...] Pt reports his dtr is coming from [place] to stay upon d/c for 10 days. 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 Assessment: Karlos Gacria was seen today for physical therapy treatment [...] LRAD and supervision Time IN / OUT: 6754-0721 Total Time: 25 minutes; TEF 2 Kelley Hinson PTA Pager: [phone] Physical Therapy Inpatient Rehabilitation Department * Louisa [...] 0600 and on the weekends please page [phone]. * Kelley Hinson PTA - 02/20/2024 3:32 PM EDT 02/20/24 8264 Evaluation & Treatment Document Type contact Total Minutes, Physical Therapy 0 Comment, Session Not Performed Checked in w/ pt this PM for ongoing PT services, pt politely declined, stating he had been dealing w/ nausea all day, made plan to see him tomorrow morning, will f/u at that time Kelley Hinson PTA Pager: [phone] Physical Therapy Inpatient Rehab Department * Louisa [...] 0600 and on the weekends please page [phone]. * Maris Benavides, PT - 02/19/2024 11:22 [...] Pt reports his dtr is coming from [place] to stay upon d/c for 10 days. 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 Precautions/Special Considerations: STERNAL [...] outlined inthis evaluation. MARIS BENAVIDES, PT Pager: [phone] Physical Therapy Inpatient Rehabilitation Department Time IN / OUT: 6737-7853 Total Time: 38 (eval) minutes; * Antonio [...] 0600 and on the weekends please page [phone]. * Minnie Begum PA - 02/18/2024 8:25 [...] CDI with SANJANA wrap Tubes/Lines/Drains: RIJ/PAC, Estrella, Jacky Ctx, L pleural CT, TPW, Delaney [...] 0600 and on the weekends please page [phone]. * Kim Ha RCP - 02/17/2024 2:25 [...] plan since last visit. Hayder Graham MD [phone] Source Note - Hayder Graham MD - [...] insufficiency. He has glaucoma. He used to [employer] until about 15 years ago. He has [...] given written informed consent. Hayder Graham MD [phone] * Hayder Graham MD - 02/17/2024 7:00 [...] given written informed consent. Hayder Graham MD [phone] documented in this encounter Miscellaneous Notes * [...] for follow-up Home Health & Hospice, [address] [place] [address] Cardiac Rehab, [address] [place] [address] Transportation: family or friend will provide Functional status prior to admission: Independent Home Environment: Others in the home: alone. Current Living Arrangements: home/apartment/condo. Accessibility Concerns:a few steps to enter 1 floor home. Current Functional Ability: Assistive Person and Equipment DME used at home: none DME Needed at Discharge: N/A Patient is insured through: Primary Insurance: [facility] Payor: [facility] / Plan: [facility] PPO / Product Type: *No [...] pain managed with scheduled Tylenol. Worked with [employer]. Ambulated in the roque multiple times during [...] anticipated Patient is insured through: Primary Insurance: [employer] Payor: [employer] / Plan: [facility] PPO / Product Type: *No Product type* / Secondary Insurance: N/A Last Physical Therapy Recommendation: home with home health (Str coming to stay for a week or two upon d/c) with to be determined (owns rolling walker, shower seat) Plan for discharge is: Home w/ Services Outpatient Agency/Support Group Needs: Homecare agency Home Health Services: Physical Therapy, Registered Nurse Agency Referrals: [facility]. [address] [place] [id number] Transportation: family or friend will provide Barriers to discharge: Discharge planning Plan going forward: Service Care Management will continue to follow and assist with discharge planning and coordination of care as indicated. Anticipated Date of Discharge: 02/22/2024 Rhett Bell RN RN/CM - Cellphone: [phone] Pager: [phone] Covering Service RN/CM * Plan of Care [...] the outpatient Phase 2 Cardiac Rehabilitation at [facility]. 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 (Only good for 180 days) Any patient receiving care in [place] must abide by [place] law. The hierarchy [...] (i) The agent with financial power of immigration attorney or a conservator appointed in accordance [...] steady place to sleep or slept in [facility] (including now)?: No In the past 12 months has the [employer], gas, oil, or water [employer] threatened to shut off services in your [...] Home Address confirmed as: [address] [facility] [address] Physical address: [address] [facility], [address] Social & Family Supports: All names listed [...] Information: none noted Health/Prescription Coverage: Primary Insurance: [facility] Payor: [facility] / Plan: [facility] PPO / Product Type: *No Product type* / Secondary Insurance: N/A ; Prescription Coverage: Yes Preferred Pharmacy: [id number] [address] [place] Status: Patient is a : No Primary Care Provider confirmed: Aparna Jordan, REFUSE AND RECYCLING WORKER [phone] Patient/Caregiver Goals of Treatment: dc to home Potential Needs for Transition of Care: home health care Agency Referrals: I have met with the patient to: discuss discharge planning needs. provide the [facility], Office of Care Management letter from the [employer]er pertaining to rehab referrals. provide a letter describing our affiliations within the [facility] and educate about their right to choose where referrals are sent. provide a list of Home Health Agencies / Durable Medical Equipment vendors which serve their preferred geographic area. provided patient with [facility] Star Quality Rating handout. They have requested referrals to: [facility] [address] [place] [address] Note routed to a Electric Tool Repairer who will communicate referrals to facilities [...] daughter, Cielo, will be coming in from [place] on 02/18, to stay with him , [...] Reina Greene RN CM, BSN, CMGT- Ext [phone] * Plan of Care - Binta Trinidad [...] Operative Note Patient Name: Karlos Garcia : [id number] MR#: [id number] Case Date: 02/17/2024 Surgeon: Surgeon(s) and Role: * Hayder Graham MD - Primary * Neftali Menon PA - Physician Transcriptionist Preoperative diagnosis: CAD Postoperative diagnosis: CAD, intraoperative [...] mL Drains: Mediastinal and Left pleural Disposition: [facility] Condition: doing well without problems Attestation: Case Date: 02/17/2024 I performed this procedure without the involvement of a resident. HAYDER GRAHAM MD 02/17/2024 * Op Note - Hayder Graham MD - 02/17/2024 8:20 AM EDT [facility] Operative Note Patient Name: Karlos Garcia : [id number] MR#: [id number] Case Date: 02/17/2024 Surgeon: Surgeons and Role: * Hayder Graham MD - Primary * Neftali Menon PA - Physician Transcriptionist Preoperative diagnosis: CAD Postoperative diagnosis: CAD, intraoperative [...] mL Drains: Mediastinal and Left pleural Disposition: [facility] Procedure Description: The patient was brought [...] 3:00 PM EST Office Visit Cardiology at [address] [place] [address] Neftali Ernandez MD [facility] [place] [address] Scheduled Orders Name Type Priority Associated Diagnoses [...] Aortic Valve Open W Cardiopulmonary Bypass Homogrf/Stent (58855) Yes 02/17/2024 7:28 AM EDT CAD Cabg, Artery-Vein, Two (27348) Yes 02/17/2024 7:28 AM EDT CAD Cabg, Arterial, Single (44478) Yes 02/17/2024 7:28 AM EDT CAD Endoscopy W/Video-Asst Vein [place], Cabg (06481) Yes 02/17/2024 7:28 AM EDT CAD POCT GLUCOSE Routine 02/17/2024 6:38 AM EDT TRANSESOPHAGEAL ECHOCARDIOGRAM IN THE OR Routine 02/17/2024 6:33 AM EDT Aortic valve stenosis, etiology of cardiac valve disease unspecified LAB SCAN 02/17/2024 12:00 AM EDT IMPLANTABLE DEVICES SCAN 02/17/2024 12:00 AM EDT documented in this encounter Results * Potassium (02/24/2024 4:42 AM EDT) Potassium 4.0 3.5 - 5.0 mmol/L [facility] Lab Hayder Graham MD CHEMISTRY ORDERABLE S [facility] [place] [address] * (ABNORMAL) Basic Metabolic Panel (non-fasting) (02/23/2024 4:24 AM EDT) Glucose 117 65 - 199 mg/dL [facility] Comment:Diabetes: >=200 mg/d L plus symptoms Blood Urea Nitrogen 18 10 - 20 mg/dL [facility] Creatinine 0.71(L) 0.80 - 1.50 mg/dL [facility] Sodium 138 135 - 145 mmol/L [facility] Potassium 4.4 3.5 - 5.0 mmol/L [facility] Comment: Please note: ??Patients with WBC >100,000 may have falsely elevated Potassium levels. ??For accurate Potassium quantification in these patients send serum separator tube (gold top) for subsequent determinations. ??Contact the Clinical Chemistry Laboratory if there are any questions. Chloride 101 98 - 107 mmol/L [facility] Carbon Dioxide 26 22 - 31 mmol/L [facility] Anion Gap 11 5 - 15 mmol/L [facility] Calcium 8.8 8.5 - 10.5 mg/dL [facility] Est Glomerular Filtration Rate 102 >=60 mL/min/1. 73 m?? [facility] In Lab Romeo Carpio MD CHEMISTRY ORDERABLES [facility] [place] [address] * Potassium (02/22/2024 4:30 AM EDT) Potassium 3.5 3.5 - 5.0 mmol/L [facility] Lab Hayder Graham MD CHEMISTRY ORDERABLE S [facility] [place] [address] * (ABNORMAL) Basic Metabolic Panel (non-fasting) (02/21/2024 9:45 AM EDT) Glucose 123 65 - 199 mg/dL [facility] Comment:Diabetes: >=200 mg/d L plus symptoms Blood Urea Nitrogen 22(H) 10 - 20 mg/dL [facility] Creatinine 0.78(L) 0.80 - 1.50 mg/dL [facility] Sodium 140 135 - 145 mmol/L [facility] Potassium 3.9 3.5 - 5.0 mmol/L [facility] Comment: Please note: ??Patients with WBC >100,000 may have falsely elevated Potassium levels. ??For accurate Potassium quantification in these patients send serum separator tube (gold top) for subsequent determinations. ??Contact the Clinical Chemistry Laboratory if there are any questions. Chloride 100 98 - 107 mmol/L [facility] Carbon Dioxide Not Perf 22 - 31 [facility] Comment:Add-on request. Samp le too old to perform test. Anion Gap Unable to Calculate 5 - 15 mmol/L [facility] Calcium 8.6 8.5 - 10.5 mg/dL [facility] Est Glomerular Filtration Rate 100 >=60 mL/min/1 .73 m?? [facility] [...] Carpio MD CHEMISTRY ORDERABLES Performing Organization Address City/[facility]/ZIP Co de Phone Number [facility] [place] [address] * Lactate, whole blood, send to lab ([facility]) (02/21/2024 9:45 AM EDT) [facility] Lactate WB 2.0 0.5 - 2.2 mmol/L [facility] Blood 02/21/2024 9:45 AM EDT 02/21/2024 9:52 AM EDT Narrative Resulting Agency Comment Spec In Lab Hayder Graham MD CHEMISTRY ORDERABLE S Performing Organization Address City/[facility]/ZIP Co de Phone Number [facility] [place] [address] * (ABNORMAL) Hepatic Function Panel (02/21/2024 9:45 AM EDT) [facility] Protein, Total 5.7(L) 6.1 - 8.0 g/dL [facility] Albumin 3.3 3.2 - 5.2 g/dL [facility] Aspartate Aminotransferase 13 0 - 39 unit/L [facility] Alanine Aminotransferase 16 0 - 55 unit/L [facility] Alkaline Phosphatase 63 40 - 130 unit/L [facility] Bilirubin, Total 0.6 0.2 - 1.3 mg/dL [facility] Bilirubin, Direct 0.2 0.0 - 0.3 mg/dL [facility] Blood 02/21/2024 9:45 AM EDT 02/21/2024 9:52 AM EDT Narrative Resulting Agency Comment Spec In Lab Hayder Graham MD CHEMISTRY ORDERABLE S Performing Organization Address City/[facility]/ZIP Co de Phone Number [facility] [place] [address] * Lipase (02/21/2024 9:45 AM EDT) Lipase 56 0 - 60 unit/L [facility] Blood 02/21/2024 9:45 AM EDT 02/21/2024 9:52 AM EDT Narrative Resulting Agency Comment Spec In Lab Hayder Graham MD CHEMISTRY ORDERABLE S Performing Organization Address [facility] Co de Phone Number [facility] [place] [address] * Amylase (02/21/2024 9:45 AM EDT) Amylase 69 28 - 100 unit/L [facility] Blood 02/21/2024 9:45 AM EDT 02/21/2024 9:52 AM EDT Narrative Resulting Agency Comment Spec In Lab Hayder Graham MD CHEMISTRY ORDERABLE S Performing Organization Address [facility] Co de Phone Number [facility] [place] [address] * Potassium (02/21/2024 3:08 AM EDT) Potassium 3.8 3.5 - 5.0 mmol/L [facility] Hayder Graham MD CHEMISTRY ORDERABLE S [facility] [place] [address] * XR Chest PA & Lateral (Generic) (02/20/2024 10:19 AM EDT) WORKSTATION ID [id number] RAD Anatomical Region Laterality Modality Chest N/A [...] advocate that requested your imaging first. ? Narrative 02/20/2024 1:11 PM EDT EXAMINATION: XR CHEST PA AND LATERAL (GENERIC) CLINICAL HISTORY: s/p AVR/CABGx3 TECHNIQUE: PA and lateral views of the chest COMPARISON: 02/17/2024 FINDINGS: Support devices: Interval removal of [place]-Kaila catheter, endotracheal tube and mediastinal chest tubes The cardiac silhouette is stable status post median sternotomy, CABG and aortic valve replacement. There are small pleural effusions. No pneumothorax. Procedure Note Rogerio Cruz MD - 02/20/2024 EXAMINATION: XR CHEST PA AND LATERAL (GENERIC) CLINICAL HISTORY: s/p AVR/CABGx3 TECHNIQUE: PA and lateral views of the chest COMPARISON: 02/17/2024 FINDINGS: Support devices: Interval removal of [place]-Kaila catheter, endotracheal tubeand mediastinal chest tubes The [...] care advocate that requested your imaging first. Hayder Graham MD IMG DX ORDERABLES * Scan, Peripheral Blood (02/20/2024 4:23 AM EDT) Pathologist [facility] Plat estimate Decreased [facility] RBC Morphology Normal [facility] Blood 02/20/2024 4:23 AM EDT 02/20/2024 4:42 AM EDT Narrative Resulting Agency Comment Spec In Lab Minnie FRENCH HEMATOLOGY CECILIO ALEMAN Performing Organization Address City/State/[facility] Co de Phone Number [facility] [place] [address] * (ABNORMAL) Differential, Automated (02/20/2024 4:23 AM EDT) [facility] Neutrophil % 81.7 % [facility] Neutrophil Absolute 10.37(H) 1.70 - 6.10 x10(3)/mc L [facility] Lymph % 7.4 % [facility] Lymphocytes Abs 0.9 0.9 - 3.2 x10(3)/mc L [facility] Monocyte % 9.7 % [facility] Monocyte Abs 1.2(H) 0.3 - 0.9 x10(3)/mc L [facility] Eos % 0.1 % [facility] Eosinophils Abs 0.0 0.0 - 0.4 x10(3)/[facility] Basophil % 0.2 % [facility] Baso Absolute 0.0 0.0 - 0.1 x10(3)/[facility] Immature Gran % 0.90 % [facility] Comment: Immature granulocytes(IG's)percentage and absolute count will include metamyelocytes, myelocytes, and promyelocytes. Blood smears from CBCs yielding IG's will be scanned manually for concordance. If this scan disagrees with the automated IG or if promyelocytes are noted, a manual differential will be performed. Immature Gran Absolute 0.12(H) 0.00 - 0.04 x10(3)/[facility] Blood 02/20/2024 4:23 AM EDT 02/20/2024 4:42 AM EDT Narrative Resulting Agency Comment Spec In Lab Minnie FRENCH HEMATOLOGY CECILIO ALEMAN [facility] [place] [address] * (ABNORMAL) Hemogram (02/20/2024 4:23 AM EDT) White Blood Cell 12.7(H) 4.0 - 9.5 x10(3)/[facility] Red Blood Cell 4.26(L) 4.58 - 5.54 x10(6)/[facility] Hemoglobin 12.3(L) 13.7 - 16.5 g/dL [facility] Hematocrit 37.1(L) 40.5 - 48.5 % [facility] Mean Cell Volume 87.1 82.9 - 93.1 fL [facility] Mean Cell Hemoglobin 28.9 27.5 - 32.1 pg [facility] Mean Cell Hemoglobin Concentration 33.2 32.0 - 35.7 g/dL [facility] Platelet 88(L) 145 - 357 x10(3)/mc L [facility] RDW Standard Deviation 43.5 36.0 - 45.0 fL [facility] RDW coefficient of variation 13.7 11.4 - 13.8 % [facility] Mean Platelet Volume 10.2 7.6 - 12.9 fL [facility] NRBC% auto 0.0 % [facility] NRBC Absolute 0.000 0.000 - 0.000 x10(3)/mc L [facility] Blood 02/20/2024 4:23 AM EDT 02/20/2024 4:42 AM EDT Narrative Resulting Agency Comment Spec In Lab Minnie FRENCH HEMATOLOGY CECILIO ALEMAN [facility] [place] [address] * (ABNORMAL) Basic Metabolic Panel (non-fasting) (02/20/2024 4:23 AM EDT) Glucose 113 65 - 199 mg/dL [facility] Comment:Diabetes: >=200 mg/d L plus symptoms Blood Urea Nitrogen 20 10 - 20 mg/dL [facility] Comment:result rechecked-[place] Creatinine 0.71(L) 0.80 - 1.50 mg/dL [facility] Sodium 135 135 - 145 mmol/L [facility] Potassium 3.9 3.5 - 5.0 mmol/L [facility] Comment: Please note: ??Patients with WBC >100,000 may have falsely elevated Potassium levels. ??For accurate Potassium quantification in these patients send serum separator tube (gold top) for subsequent determinations. ??Contact the Clinical Chemistry Laboratory if there are any questions. Chloride 102 98 - 107 mmol/L [facility] Carbon Dioxide 25 22 - 31 mmol/L [facility] Anion Gap 8 5 - 15 mmol/L [facility] Calcium 8.7 8.5 - 10.5 mg/dL [facility] Comment:result rechecked-[place] Est Glomerular Filtration Rate 102 >=60 mL/min/1. 73 m?? [facility] MD CHEMISTRY ORDERABLE S Performing Organization Address [facility] Co de Phone Number [facility] [place] [address] * Potassium (02/19/2024 3:57 AM EDT) [facility] Potassium 4.3 3.5 - 5.0 mmol/L [facility] MD CHEMISTRY ORDERABLE S Performing Organization Address [facility]/ZIP Co de Phone Number [facility] [place] [address] * POCT Glucose (02/18/2024 8:24 AM EDT) Glucose, POC 157 65 - 199 mg/dL [facility] Comment: Supplemental ranges: <140 mg/dL before meals <180 mg/dL all other times of the day Blood 02/18/2024 8:24 AM EDT 02/18/2024 8:24 AM EDT Hayder Graham MD POINT OF CARE TEST ORDERABLES Performing Organization Address City/[facility]/ZIP Co de Phone Number [facility] [place] [address] * Scan, Peripheral Blood (02/18/2024 1:40 AM EDT) [facility] Plat estimate Decreased [facility] RBC Morphology Normal [facility] Blood 02/18/2024 1:40 AM EDT 02/18/2024 1:56 AM EDT Narrative Resulting Agency Comment Spec In Lab Neftali FRENCH HEMATOLOGY ORDER OLE Performing Organization Address City/[facility]/ZIP Co de Phone Number [facility] [place] [address] * (ABNORMAL) Differential, Automated (02/18/2024 1:40 AM EDT) [facility] Neutrophil % 87.1 % [facility] Neutrophil Absolute 15.03(H) 1.70 - 6.10 x10(3)/mc L [facility] Lymph % 3.0 % [facility] Lymphocytes Abs 0.5(L) 0.9 - 3.2 x10(3)/mc L [facility] Monocyte % 9.1 % [facility] Monocyte Abs 1.6(H) 0.3 - 0.9 x10(3)/mc L [facility] Eos % 0.0 % [facility] Eosinophils Abs 0.0 0.0 - 0.4 x10(3)/mc L [facility] Basophil % 0.2 % [facility] Baso Absolute 0.0 0.0 - 0.1 x10(3)/mc L [facility] Immature Gran % 0.60 % [facility] Comment: Immature granulocytes(IG's)percentage and absolute count will include metamyelocytes, myelocytes, and promyelocytes. Blood smears from CBCs yielding IG's will be scanned manually for concordance. If this scan disagrees with the automated IG or if promyelocytes are noted, a manual differential will be performed. Immature Gran Absolute 0.10(H) 0.00 - 0.04 x10(3)/ L [facility] Blood 02/18/2024 1:40 AM EDT 02/18/2024 1:56 AM EDT Narrative Resulting Agency Comment Spec In Lab Neftali FRENCH HEMATOLOGY ORDER OLE [facility] [place] [address] * (ABNORMAL) Hemogram (02/18/2024 1:40 AM EDT) White Blood Cell 17.2(H) 4.0 - 9.5 x10(3)/ L [facility] Red Blood Cell 4.71 4.58 - 5.54 x10(6)/mc L [facility] Hemoglobin 13.7 13.7 - 16.5 g/dL [facility] Hematocrit 39.2(L) 40.5 - 48.5 % [facility] Mean Cell Volume 83.2 82.9 - 93.1 fL [facility] Mean Cell Hemoglobin 29.1 27.5 - 32.1 pg [facility] Mean Cell Hemoglobin Concentration 34.9 32.0 - 35.7 g/dL [facility] Platelet 147 145 - 357 x10(3)/mc L [facility] RDW Standard Deviation 39.9 36.0 - 45.0 fL [facility] RDW coefficient of variation 13.2 11.4 - 13.8 % [facility] Mean Platelet Volume 9.9 7.6 - 12.9 fL [facility] NRBC% auto 0.0 % [facility] NRBC Absolute 0.000 0.000 - 0.000 x10(3)/mc L [facility] Blood 02/18/2024 1:40 AM EDT 02/18/2024 1:56 AM EDT Narrative Resulting Agency Comment Spec In Lab Neftali FRENCH HEMATOLOGY ORDER OLE [facility] [place] [address] * (ABNORMAL) Basic Metabolic Panel (non-fasting) (02/18/2024 1:40 AM EDT) Glucose 176 65 - 199 mg/dL [facility] Comment:Diabetes: >=200 mg/d L plus symptoms Blood Urea Nitrogen 10 10 - 20 mg/dL [facility] Creatinine 0.65(L) 0.80 - 1.50 mg/dL [facility] Sodium 135 135 - 145 mmol/L [facility] Potassium 4.2 3.5 - 5.0 mmol/L [facility] Comment: Please note: ??Patients with WBC >100,000 may have falsely elevated Potassium levels. ??For accurate Potassium quantification in these patients send serum separator tube (gold top) for subsequent determinations. ??Contact the Clinical Chemistry Laboratory if there are any questions. Chloride 106 98 - 107 mmol/L [facility] Carbon Dioxide 20(L) 22 - 31 mmol/L [facility] Anion Gap 9 5 - 15 mmol/L [facility] Calcium 7.6(L) 8.5 - 10.5 mg/dL [facility] Est Glomerular Filtration Rate 105 >=60 mL/min/1. 73 m?? [facility] Lab Hayder Graham MD CHEMISTRY ORDERABLE S [facility] [place] [address] * (ABNORMAL) Troponin (02/18/2024 1:40 AM EDT) Troponin-T, High Sensitivity 342(H) <=22 ng/L [facility] Comment: [...] troponin value can be found in the [facility] Laboratory Test Catalog Troponin - [facility] Laboratory Test Catalog Reference: Fourth [place] Definition of Myocardial Infarction. Journal of the [place] [employer] 2018;72:7952-5903 Blood 02/18/2024 1:40 AM EDT 02/18/2024 1:56 AM EDT Narrative Resulting Agency Comment Spec In Lab Hayder Graham MD CHEMISTRY ORDERABLE S [facility] [place] [address] * POCT Glucose (02/17/2024 8:13 PM EDT) Glucose, POC 142 65 - 199 mg/dL [facility] Comment: Supplemental ranges: <140 mg/dL before meals <180 mg/dL all other times of the day Blood 02/17/2024 8:13 PM EDT 02/17/2024 8:13 PM EDT Hayder Graham MD POINT OF CARE TEST ORDERABLES Performing Organization Address [facility]/ZIP Co de Phone Number [facility] [place] [address] * POCT Glucose (02/17/2024 5:42 PM EDT) Glucose, POC 160 65 - 199 mg/dL [facility] Comment: Supplemental ranges: <140 mg/dL before meals <180 mg/dL all other times of the day Blood 02/17/2024 5:42 PM EDT 02/17/2024 5:42 PM EDT Hayder Graham MD POINT OF CARE TEST ORDERABLES Performing Organization Address City/[facility]/ZIP Co de Phone Number [facility] [place] [address] * Hemoglobin (02/17/2024 5:42 PM EDT) Hemoglobin 13.7 13.7 - 16.5 g/dL [facility] Blood 02/17/2024 5:42 PM EDT 02/17/2024 6:10 PM EDT Narrative Resulting Agency Comment Spec In Lab Hayder Graham MD HEMATOLOGY ORDERABL ES Performing Organization Address [facility] Co de Phone Number [facility] [place] [address] * Potassium (02/17/2024 5:42 PM EDT) Potassium 4.3 3.5 - 5.0 mmol/L [facility] MD CHEMISTRY ORDERABLE S Performing Organization Address [facility] de Phone Number [facility] [place] [address] * (ABNORMAL) BLOOD GAS 2 ARTERIAL (02/17/2024 4:18 PM EDT) pH, Arterial 7.34(L) 7.35 - 7.45 [facility] PCO2, Arterial 40 35 - 45 mmHg [facility] PO2, Arterial 78(L) 85 - 104 mmHg [facility] Bicarbonate, Arterial 20.8 20.0 - 26.0 mmol/L [facility] Base Excess, Arterial -5.1(L) -3.0 - 3.0 mmol/L [facility] Hgb Blood Gas 14.6 13.7 - 16.5 g/dL [facility] Oxyhemoglobin, Arterial 93.0(L) 94.0 - 97.0 % [facility] Carboxyhemoglob in, Arterial 0.3 % [facility] Comment: Nonsmokers: 0.5-1.5% COHB Smokers: Variable, but usually less than 10% Toxic: 20-30% COHB Lethal: Greater than 60% COHB Methemoglobin, Arterial 0.8 <=1.5 % [facility] Na Whole Blood 136 135 - 145 mmol/L [facility] K Whole Blood 4.1 3.5 - 5.0 mmol/L [facility] Comment: Please note: Patients with WBC >100,000 may have falsely elevated Potassium levels. Contact the Clinical Chemistry Laboratory if there are any questions. ICa Whole Blood 1.10(L) 1.15 - 1.33 mmol/L [facility] Comment: Note: ??Total bilirubin higher than 20 mg/dL may lead to falsely low ionized calcium. CL Whole Blood 105 98 - 107 mmol/L [facility] Gluc Whole Bld 159 65 - 199 mg/dL [facility] Comment:Diabetes: >=200 mg/d L plus symptoms. Lactate WB 1.2 0.5 - 2.2 mmol/L [facility] FIO2 Art 40 % [facility] PF Ratio Art 195 [facility] Blood 02/17/2024 4:18 PM EDT 02/17/2024 4:18 PM EDT Hayder Graham MD POINT OF CARE TEST ORDERABLES Performing Organization Address City/State/[facility] Co de Phone Number [facility] [place] [address] * XR Chest One View (02/17/2024 1:44 PM EDT) WORKSTATION ID [id number] RAD Anatomical Region Laterality Modality Chest N/A Digital Radiogra phy Impressions 02/17/2024 2:12 PM EDT 1. ??No definite pleural fluid collection or pneumothorax. 2. ??Right IJ [place]aila catheter tip terminates in a descending branch [...] advocate that requested your imaging first. ? Narrative 02/17/2024 2:12 PM EDT EXAMINATION: XR CHEST ONE VIEW CLINICAL HISTORY: s/p avr/cabg eval effusions TECHNIQUE: 1 view of the chest COMPARISON: Chest x-ray 01/09/2024, chest CT 02/03/2024 FINDINGS: ET tube tip terminates 5.2 cm above the carlos. Right IJ [place]aila catheter tip terminates in a descending branch [...] 5.2 cm above the carlos. Right IJ [place]-Ganzcatheter tip terminates in a descending branch of [...] fluid collection or pneumothorax. 2. Right IJ [place]a catheter tip terminates in a descending branch [...] care advocate that requested your imaging first. Hayder Graham MD IMG DX ORDERABLES * (ABNORMAL) BLOOD GAS 2 ARTERIAL (02/17/2024 1:31 PM EDT) pH, Arterial 7.35 7.35 - 7.45 [facility] PCO2, Arterial 39 35 - 45 mmHg [facility] PO2, Arterial 320(H) 85 - 104 mmHg [facility] Bicarbonate, Arterial 21.4 20.0 - 26.0 mmol/L [facility] Base Excess, Arterial -4.2(L) -3.0 - 3.0 mmol/L [facility] Hgb Blood Gas 14.1 13.7 - 16.5 g/dL [facility] Oxyhemoglobin, Arterial 97.9(H) 94.0 - 97.0 % [facility] Carboxyhemoglob in, Arterial 0.3 % [facility] Comment: Nonsmokers: 0.5-1.5% COHB Smokers: Variable, but usually less than 10% Toxic: 20-30% COHB Lethal: Greater than 60% COHB Methemoglobin, Arterial 0.7 <=1.5 % [facility] Na Whole Blood 137 135 - 145 mmol/L [facility] K Whole Blood 4.2 3.5 - 5.0 mmol/L [facility] Comment: Please note: Patients with WBC >100,000 may have falsely elevated Potassium levels. Contact the Clinical Chemistry Laboratory if there are any questions. ICa Whole Blood 1.13(L) 1.15 - 1.33 mmol/L [facility] Comment: Note: ??Total bilirubin higher than 20 mg/dL may lead to falsely low ionized calcium. CL Whole Blood 108(H) 98 - 107 mmol/L [facility] Gluc Whole Bld 136 65 - 199 mg/dL [facility] Comment:Diabetes: >=200 mg/d L plus symptoms. Lactate WB 1.1 0.5 - 2.2 mmol/L [facility] FIO2 Art 100 % [facility] PF Ratio Art 320 [facility] Blood 02/17/2024 1:31 PM EDT 02/17/2024 1:31 PM EDT Hayder Graham MD POINT OF CARE TEST ORDERABLES Performing Organization Address City/State/[facility] Co de Phone Number [facility] [place] [address] * (ABNORMAL) Coox2 (02/17/2024 1:21 PM EDT) pO2, Coox 44 mmHg [facility] Hgb Blood Gas 13.1(L) 13.7 - 16.5 g/dL [facility] Oxyhemoglobin, Coox 76.4 % [facility] Carboxyhemoglo bin, Coox 0.3 % [facility] Comment: Nonsmokers: 0.5-1.5% COHB Smokers: Variable, but usually less than 10% Toxic: 20-30% COHB Lethal: Greater than 60% COHB Methemoglobin, Coox 0.8 <=1.5 % [facility] Source Coox Mixed Venous [facility] Blood 02/17/2024 1:21 PM EDT 02/17/2024 1:21 PM EDT Hayder Graham MD POINT OF CARE TEST ORDERABLES [facility] [place] [address] * (ABNORMAL) BLOOD GAS 2 ARTERIAL (02/17/2024 12:14 PM EDT) pH, Arterial 7.39 7.35 - 7.45 [facility] PCO2, Arterial 40 35 - 45 mmHg [facility] PO2, Arterial 338(H) 85 - 104 mmHg [facility] Bicarbonate, Arterial 23.7 20.0 - 26.0 mmol/L [facility] Base Excess, Arterial -1.3 -3.0 - 3.0 mmol/L [facility] Hgb Blood Gas 11.0(L) 13.7 - 16.5 g/dL [facility] Oxyhemoglobin, Arterial 98.8(H) 94.0 - 97.0 % [facility] Carboxyhemoglob in, Arterial 0.3 % [facility] Comment: Nonsmokers: 0.5-1.5% COHB Smokers: Variable, but usually less than 10% Toxic: 20-30% COHB Lethal: Greater than 60% COHB Methemoglobin, Arterial 0.3 <=1.5 % [facility] Na Whole Blood 135 135 - 145 mmol/L [facility] K Whole Blood 5.1(H) 3.5 - 5.0 mmol/L [facility] Comment: Please note: Patients with WBC >100,000 may have falsely elevated Potassium levels. Contact the Clinical Chemistry Laboratory if there are any questions. ICa Whole Blood 1.13(L) 1.15 - 1.33 mmol/L [facility] Comment: Note: ??Total bilirubin higher than 20 mg/dL may lead to falsely low ionized calcium. CL Whole Blood 106 98 - 107 mmol/L [facility] Gluc Whole Bld 132 65 - 199 mg/dL [facility] Comment:Diabetes: >=200 mg/d L plus symptoms. Lactate WB 1.4 0.5 - 2.2 mmol/L [facility] Blood 02/17/2024 12:1 4 PM EDT 02/17/2024 12:14 PM EDT Hayder Graham MD POINT OF CARE TEST ORDERABLES Performing Organization Address [facility] de Phone Number [facility] [place] [address] * (ABNORMAL) Fibrinogen (02/17/2024 12:10 PM EDT) Fibrinogen 154(L) 200 - 393 mg/dL [facility] Comment: OR Result [...] MD HEMATOLOGY ORDERABLE S Performing Organization Address [facility] Co de Phone Number [facility] [place] [address] * (ABNORMAL) Thrombin time (02/17/2024 12:10 PM EDT) Thrombin Time 18(H) 10 - 17 sec [facility] Comment: OR Result [...] MD HEMATOLOGY ORDERABLE S Performing Organization Address [facility] de Phone Number [facility] [place] [address] * APTT (02/17/2024 12:10 PM EDT) Partial Thromboplastin Time 33 25 - 37 sec [facility] Comment: OR Result [...] MD HEMATOLOGY ORDERABLE S Performing Organization Address [facility] de Phone Number [facility] [place] [address] * (ABNORMAL) Prothrombin Time (02/17/2024 12:10 PM EDT) Prothrombin Time 16.7(H) 9.4 - 12.5 sec [facility] Comment: OR Result called by ?? LOMARL OR Results read back by: ? alondra pagan at 2024-02-17 12:41:48 International Normalization Ratio 1.5 [facility] [facility] Comment: OR Result [...] Lab Tara York MD HEMATOLOGY ORDERABLE S [facility] [place] [address] * (ABNORMAL) Hemogram (02/17/2024 12:10 PM EDT) White Blood Cell 11.1(H) 4.0 - 9.5 x10(3)/mc L [facility] Red Blood Cell 3.50(L) 4.58 - 5.54 x10(6)/mc L [facility] Hemoglobin 10.4(L) 13.7 - 16.5 g/dL [facility] Hematocrit 30.2(L) 40.5 - 48.5 % [facility] Comment: This result has been called to ALONDRA PAGAN by Eddie López on 02 17 2024 at 1226, and has been read back. Mean Cell Volume 86.3 82.9 - 93.1 fL [facility] Mean Cell Hemoglobin 29.7 27.5 - 32.1 pg [facility] Mean Cell Hemoglobin Concentration 34.4 32.0 - 35.7 g/dL [facility] Platelet 118(L) 145 - 357 x10(3)/mc L [facility] RDW Standard Deviation 40.2 36.0 - 45.0 fL [facility] RDW coefficient of variation 12.8 11.4 - 13.8 % [facility] Mean Platelet Volume 9.5 7.6 - 12.9 fL [facility] NRBC% auto 0.0 % [facility] NRBC Absolute 0.000 0.000 - 0.000 x10(3)/mc L [facility] Blood 02/17/2024 12:1 0 PM EDT 02/17/2024 12:19 PM EDT Narrative Resulting Agency Comment Spec In Lab Tara York MD HEMATOLOGY ORDERABLE S [facility] [address] [place] [address] * (ABNORMAL) BLOOD GAS 2 ARTERIAL (02/17/2024 11:43 AM EDT) pH, Arterial 7.38 7.35 - 7.45 [facility] PCO2, Arterial 40 35 - 45 mmHg [facility] PO2, Arterial 304(H) 85 - 104 mmHg [facility] Bicarbonate, Arterial 23.2 20.0 - 26.0 mmol/L [facility] Base Excess, Arterial -1.9 -3.0 - 3.0 mmol/L [facility] Hgb Blood Gas 11.1(L) 13.7 - 16.5 g/dL [facility] Oxyhemoglobin, Arterial 98.6(H) 94.0 - 97.0 % [facility] Carboxyhemoglob in, Arterial 0.3 % [facility] Comment: Nonsmokers: 0.5-1.5% COHB Smokers: Variable, but usually less than 10% Toxic: 20-30% COHB Lethal: Greater than 60% COHB Methemoglobin, Arterial 0.3 <=1.5 % [facility] Na Whole Blood 133(L) 135 - 145 mmol/L [facility] K Whole Blood 6.2(Critic al) 3.5 - 5.0 mmol/L [facility] Comment: Noted by plant and instrument engineer. Please note: Patients with WBC >100,000 may have falsely elevated Potassium levels. Contact the Clinical Chemistry Laboratory if there are any questions. ICa Whole Blood 0.97(L) 1.15 - 1.33 mmol/L [facility] Comment: Note: ??Total bilirubin higher than 20 mg/dL may lead to falsely low ionized calcium. CL Whole Blood 104 98 - 107 mmol/L [facility] Gluc Whole Bld 128 65 - 199 mg/dL [facility] Comment:Diabetes: >=200 mg/d L plus symptoms. Lactate WB 1.1 0.5 - 2.2 mmol/L [facility] Blood 02/17/2024 11:4 3 AM EDT 02/17/2024 11:43 AM EDT Hayder Graham MD POINT OF CARE TEST ORDERABLES [facility] [place] [address] * (ABNORMAL) BLOOD GAS 2 ARTERIAL (02/17/2024 11:08 AM EDT) pH, Arterial 7.38 7.35 - 7.45 [facility] PCO2, Arterial 38 35 - 45 mmHg [facility] PO2, Arterial 334(H) 85 - 104 mmHg [facility] Bicarbonate, Arterial 22.0 20.0 - 26.0 mmol/L [facility] Base Excess, Arterial -3.2(L) -3.0 - 3.0 mmol/L [facility] Hgb Blood Gas 10.8(L) 13.7 - 16.5 g/dL [facility] Oxyhemoglobin, Arterial 98.7(H) 94.0 - 97.0 % [facility] Carboxyhemoglob in, Arterial 0.3 % [facility] Comment: Nonsmokers: 0.5-1.5% COHB Smokers: Variable, but usually less than 10% Toxic: 20-30% COHB Lethal: Greater than 60% COHB Methemoglobin, Arterial 0.3 <=1.5 % [facility] Na Whole Blood 131(L) 135 - 145 mmol/L [facility] K Whole Blood 6.4(Critic al) 3.5 - 5.0 mmol/L [facility] Comment: Noted by plant and instrument engineer. Please note: Patients with WBC >100,000 may have falsely elevated Potassium levels. Contact the Clinical Chemistry Laboratory if there are any questions. ICa Whole Blood 0.98(L) 1.15 - 1.33 mmol/L [facility] Comment: Note: ??Total bilirubin higher than 20 mg/dL may lead to falsely low ionized calcium. CL Whole Blood 104 98 - 107 mmol/L [facility] Gluc Whole Bld 127 65 - 199 mg/dL [facility] Comment:Diabetes: >=200 mg/d L plus symptoms. Lactate WB 1.0 0.5 - 2.2 mmol/L [facility] Blood 02/17/2024 11:0 8 AM EDT 02/17/2024 11:08 AM EDT Hayder Graham MD POINT OF CARE TEST ORDERABLES Performing Organization Address City/[facility]/ZIP [place] [address] * (ABNORMAL) Hemoglobin and Hematocrit, blood (02/17/2024 11:04 AM EDT) Hemoglobin 9.6(L) 13.7 - 16.5 g/dL [facility] Hematocrit 28.0(L) 40.5 - 48.5 % [facility] Comment: This result has been called to ALONDRA PAGAN by Eddie López on 02 17 2024 at 1120, and has been read back. Blood 02/17/2024 11:0 4 AM EDT 02/17/2024 11:12 AM EDT Narrative Resulting Agency Comment Spec In Lab Hayder Graham MD HEMATOLOGY ORDERABL ES [facility] [place] [address] * (ABNORMAL) Platelet count (02/17/2024 11:04 AM EDT) Platelet 106(L) 145 - 357 x10(3)/mc L [facility] Immature Plt % 1.6 0.0 - 7.4 % [facility] Comment: Limitation of the Immature Platelet Fraction (IPF)-May be less reliable when the platelet count is less than 87a181/uL due to statistical imprecision. The IPF value [...] in a decreased state of production. References: [employer] The Clinical Value of the Immature Platelet Fraction (IPF) in Cell Recovery Document Number [id number] 03/2011 [employer] The Role of the Immature Platelet Fraction (IPF) in the Differential Diagnosis of Thrombocytopenia, Document [id number] V002/15/14 P014 Blood 02/17/2024 11:0 4 AM EDT 02/17/2024 11:12 AM EDT Narrative Resulting Agency Comment Spec In Lab Hayder Graham MD HEMATOLOGY ORDERABL ES [facility] [place] [address] * (ABNORMAL) Fibrinogen (02/17/2024 11:04 AM EDT) Pathologist [facility] Fibrinogen 149(L) 200 - 393 mg/dL [facility] Comment: OR Result called by ?? SALVLT OR Results read back by: ? Alondra Pagan at 2024-02-17 11:30:47 A fibrinogen level >100 mg/dL is adequate for hemostasis in most patients without underlying bleeding disorders. Blood 02/17/2024 11:0 4 AM EDT 02/17/2024 11:12 AM EDT Narrative Resulting Agency Comment Spec In Lab Hayder Graham MD HEMATOLOGY ORDERABL ES [facility] [place] [address] * (ABNORMAL) BLOOD GAS 2 ARTERIAL (02/17/2024 10:41 AM EDT) pH, Arterial 7.37 7.35 - 7.45 [facility] PCO2, Arterial 44 35 - 45 mmHg [facility] PO2, Arterial 335(H) 85 - 104 mmHg [facility] Bicarbonate, Arterial 24.9 20.0 - 26.0 mmol/L [facility] Base Excess, Arterial -0.4 -3.0 - 3.0 mmol/L [facility] Hgb Blood Gas 11.5(L) 13.7 - 16.5 g/dL [facility] Oxyhemoglobin, Arterial 98.9(H) 94.0 - 97.0 % [facility] Carboxyhemoglob in, Arterial 0.1 % [facility] Comment: Nonsmokers: 0.5-1.5% COHB Smokers: Variable, but usually less than 10% Toxic: 20-30% COHB Lethal: Greater than 60% COHB Methemoglobin, Arterial 0.3 <=1.5 % [facility] Na Whole Blood 132(L) 135 - 145 mmol/L [facility] K Whole Blood 5.9(H) 3.5 - 5.0 mmol/L [facility] Comment: Please note: Patients with WBC >100,000 may have falsely elevated Potassium levels. Contact the Clinical Chemistry Laboratory if there are any questions. ICa Whole Blood 1.02(L) 1.15 - 1.33 mmol/L [facility] Comment: Note: ??Total bilirubin higher than 20 mg/dL may lead to falsely low ionized calcium. CL Whole Blood 104 98 - 107 mmol/L [facility] Gluc Whole Bld 129 65 - 199 mg/dL [facility] Comment:Diabetes: >=200 mg/d L plus symptoms. Lactate WB 1.1 0.5 - 2.2 mmol/L [facility] Blood 02/17/2024 10:4 1 AM EDT 02/17/2024 10:41 AM EDT Hayder Graham MD POINT OF CARE TEST ORDERABLES Performing Organization Address City/State/[facility] Co de Phone Number [facility] [place] [address] * (ABNORMAL) BLOOD GAS 2 ARTERIAL (02/17/2024 10:06 AM EDT) pH, Arterial 7.38 7.35 - 7.45 [facility] PCO2, Arterial 42 35 - 45 mmHg [facility] PO2, Arterial 329(H) 85 - 104 mmHg [facility] Bicarbonate, Arterial 24.7 20.0 - 26.0 mmol/L [facility] Base Excess, Arterial -0.3 -3.0 - 3.0 mmol/L [facility] Hgb Blood Gas 11.0(L) 13.7 - 16.5 g/dL [facility] Oxyhemoglobin, Arterial 99.0(H) 94.0 - 97.0 % [facility] Carboxyhemoglob in, Arterial 0.3 % [facility] Comment: Nonsmokers: 0.5-1.5% COHB Smokers: Variable, but usually less than 10% Toxic: 20-30% COHB Lethal: Greater than 60% COHB Methemoglobin, Arterial 0.3 <=1.5 % [facility] Na Whole Blood 132(L) 135 - 145 mmol/L [facility] K Whole Blood 6.0(H) 3.5 - 5.0 mmol/L [facility] Comment: Please note: Patients with WBC >100,000 may have falsely elevated Potassium levels. Contact the Clinical Chemistry Laboratory if there are any questions. ICa Whole Blood 0.97(L) 1.15 - 1.33 mmol/L [facility] Comment: Note: ??Total bilirubin higher than 20 mg/dL may lead to falsely low ionized calcium. CL Whole Blood 102 98 - 107 mmol/L [facility] Gluc Whole Bld 123 65 - 199 mg/dL [facility] Comment:Diabetes: >=200 mg/d L plus symptoms. Lactate WB 1.1 0.5 - 2.2 mmol/L [facility] Blood 02/17/2024 10:0 6 AM EDT 02/17/2024 10:06 AM EDT Hayder Graham MD POINT OF CARE TEST ORDERABLES Performing Organization Address City/State/[facility] Co de Phone Number [facility] [place] [address] * Surgical Pathology Report (02/17/2024 10:01 AM EDT) Final Diagnosis [id number] ? Location: [facility]; [facility]; The signing pathologist has (i) examined the relevant preparation(s) for the specimen(s) and (ii) rendered or confirmed the diagnosis(es). . ?Surgical Pathology DIAGNOSIS Aortic valve leaflets, excision: Valve leaflets with myxoid degeneration, nodular fibrosis and dystrophic calcifications. Electronically signed by: ?Livier Montoya MD Verified: ??02/24/2024 13:49 ??Pathologist Performed at: ??-[facility] Dept. of Pathology, [place] [address] Cotton Baler: Job Brewer MD, FCAP, ??CLIA Certificate: [id number] SPECIMEN(S) SUBMITTED A - Aortic Valve Leaflets, [...] Sections Processing Blocks submitted for decalcification: A1. Shank Burnisher sections in 1 cassette labeled A1. ??ajw 02/24/2024 1:49 PM EDT [facility] AORTIC STRUCTURE / Unknown 02/17/2024 10:01 AM EDT 02/17/2024 10:01 AM EDT Hayder Graham MD PATHOLOGY/CYTOLOGY ORDERABLES Performing Organization Address City/[facility]/ZIP Co de Phone Number [facility] [place] [address] * Specimen to Pathology (02/17/2024 10:01 AM EDT) AP Specimen 02/17/2024 10:0 1 AM EDT 02/17/2024 10:01 AM EDT Narrative [facility] - 02/17/2024 10:01 AM EDT Specimen requisition ordered. ??Separate Pathology report to follow Hayder Graham MD PATHOLOGY/CYTOLOGY ORDERABLES Performing Organization Address [facility]/ZIP Co de Phone Number [facility] [place] [address] * (ABNORMAL) BLOOD GAS 2 ARTERIAL (02/17/2024 9:35 AM EDT) pH, Arterial 7.33(L) 7.35 - 7.45 [facility] PCO2, Arterial 35 35 - 45 mmHg [facility] PO2, Arterial 318(H) 85 - 104 mmHg [facility] Bicarbonate, Arterial 17.9(L) 20.0 - 26.0 mmol/L [facility] Base Excess, Arterial -8.0(L) -3.0 - 3.0 mmol/L [facility] Hgb Blood Gas 11.0(L) 13.7 - 16.5 g/dL [facility] Oxyhemoglobin, Arterial 98.8(H) 94.0 - 97.0 % [facility] Carboxyhemoglob in, Arterial 0.3 % [facility] Comment: Nonsmokers: 0.5-1.5% COHB Smokers: Variable, but usually less than 10% Toxic: 20-30% COHB Lethal: Greater than 60% COHB Methemoglobin, Arterial 0.3 <=1.5 % [facility] Na Whole Blood 131(L) 135 - 145 mmol/L [facility] K Whole Blood 5.8(H) 3.5 - 5.0 mmol/L [facility] Comment: Please note: Patients with WBC >100,000 may have falsely elevated Potassium levels. Contact the Clinical Chemistry Laboratory if there are any questions. ICa Whole Blood 0.98(L) 1.15 - 1.33 mmol/L [facility] Comment: Note: ??Total bilirubin higher than 20 mg/dL may lead to falsely low ionized calcium. CL Whole Blood 101 98 - 107 mmol/L [facility] Gluc Whole Bld 122 65 - 199 mg/dL [facility] Comment:Diabetes: >=200 mg/d L plus symptoms. Lactate WB 0.8 0.5 - 2.2 mmol/L [facility] Blood 02/17/2024 9:35 AM EDT 02/17/2024 9:35 AM EDT Hayder Graham MD POINT OF CARE TEST ORDERABLES [facility] [place] [address] * (ABNORMAL) BLOOD GAS 2 VENOUS (02/17/2024 9:34 AM EDT) pH, Venous 7.22(Criti marquez) 7.32 - 7.42 [facility] Comment:Noted by plant and instrument engineer. PCO2, Venous 43 41 - 51 mmHg [facility] Comment:Noted by plant and instrument engineer. PO2, Venous 57(H) 25 - 40 mmHg [facility] Comment:Noted by plant and instrument engineer. Bicarbonate, Venous 17.1 mmol/L [facility] Comment:Noted by plant and instrument engineer. Base Excess, Venous -10.6 mmol/L [facility] Comment:Noted by plant and instrument engineer. Hgb Blood Gas 11.2(L) 13.7 - 16.5 g/dL [facility] Comment:Noted by plant and instrument engineer. Oxyhemoglobin, Venous 86.5 % [facility] Comment:Noted by plant and instrument engineer. Carboxyhemoglob in, Venous 0.3 % [facility] Comment: Noted by plant and instrument engineer. Nonsmokers: 0.5-1.5% COHB Smokers: Variable, but usually less than 10% Toxic: 20-30% COHB Lethal: Greater than 60% COHB Methemoglobin, Venous 0.0 <=1.5 % [facility] Comment:Noted by plant and instrument engineer. Na Whole Blood 156(H) 135 - 145 mmol/L [facility] Comment:Noted by plant and instrument engineer. K Whole Blood 5.5(H) 3.5 - 5.0 mmol/L [facility] Comment: Noted by plant and instrument engineer. Please note: Patients with WBC >100,000 may have falsely elevated Potassium levels. Contact the Clinical Chemistry Laboratory if there are any questions. ICa Whole Blood 1.03(L) 1.15 - 1.33 mmol/L [facility] Comment: Noted by plant and instrument engineer. Note: ??Total bilirubin higher than 20 mg/dL may lead to falsely low ionized calcium. CL Whole Blood 100 98 - 107 mmol/L [facility] Comment:Noted by plant and instrument engineer. Gluc Whole Bld 132 65 - 199 mg/dL [facility] Comment: Noted by plant and instrument engineer. Diabetes: >=200 mg/dL plus symptoms Lactate WB 1.0 0.5 - 2.2 mmol/L [facility] Comment:Noted by plant and instrument engineer. Blood Gas Source Venous [facility] Blood 02/17/2024 9:34 AM EDT 02/17/2024 9:34 AM EDT Hayder Graham MD POINT OF CARE TEST ORDERABLES [facility] [place] [address] * (ABNORMAL) BLOOD GAS 2 ARTERIAL (02/17/2024 8:07 AM EDT) pH, Arterial 7.43 7.35 - 7.45 [facility] PCO2, Arterial 34(L) 35 - 45 mmHg [facility] PO2, Arterial 581(H) 85 - 104 mmHg [facility] Bicarbonate, Arterial 21.7 20.0 - 26.0 mmol/L [facility] Base Excess, Arterial -2.6 -3.0 - 3.0 mmol/L [facility] Hgb Blood Gas 14.5 13.7 - 16.5 g/dL [facility] Oxyhemoglobin, Arterial 99.0(H) 94.0 - 97.0 % [facility] Carboxyhemoglob in, Arterial 0.4 % [facility] Comment: Nonsmokers: 0.5-1.5% COHB Smokers: Variable, but usually less than 10% Toxic: 20-30% COHB Lethal: Greater than 60% COHB Methemoglobin, Arterial 0.3 <=1.5 % [facility] Na Whole Blood 139 135 - 145 mmol/L [facility] K Whole Blood 4.0 3.5 - 5.0 mmol/L [facility] Comment: Please note: Patients with WBC >100,000 may have falsely elevated Potassium levels. Contact the Clinical Chemistry Laboratory if there are any questions. ICa Whole Blood 1.09(L) 1.15 - 1.33 mmol/L [facility] Comment: Note: ??Total bilirubin higher than 20 mg/dL may lead to falsely low ionized calcium. CL Whole Blood 106 98 - 107 mmol/L [facility] Gluc Whole Bld 100 65 - 199 mg/dL [facility] Comment:Diabetes: >=200 mg/d L plus symptoms. Lactate WB 1.3 0.5 - 2.2 mmol/L [facility] Blood 02/17/2024 8:07 AM EDT 02/17/2024 8:07 AM EDT Hayder Graham MD POINT OF CARE TEST ORDERABLES Performing Organization Address [facility] Co de Phone Number [facility] [place] [address] * POCT Glucose (02/17/2024 6:38 AM EDT) Glucose, POC 98 65 - 199 mg/dL [facility] Comment: Supplemental ranges: <140 mg/dL before meals <180 mg/dL all other times of the day Blood 02/17/2024 6:38 AM EDT 02/17/2024 6:38 AM EDT Hayder Graham MD POINT OF CARE TEST ORDERABLES Performing Organization Address [facility] Co de Phone Number [facility] [place] [address] * Transesophageal Echo/OR (02/17/2024 6:33 AM EDT) [...] [facility] and post-operative evaluation of cardiac function [...] dose on Sat02/17/24 at 1400, Until Discontinued, [place] teeth and / or gums. Scan the CHG vial in the [employer] Q-Care Oral Care Kit from floor stock. Ventilator-associated pneumonia prophylaxis For use in ICU/Critical care locations ONLY. Obtain kit from Floor Stock location. Scan CHG vial in the [employer] Q-Care Oral Care Kit, Routine Given 02/17/2024 [...] restart at 50% of previous rate. Call night warehouse selector if goal not achieved at maximum rate. [...] PHENYLephrine and/or vasopressin ineffective. Call pager # [phone] if initiated. Titrate to keep systolic blood [...] 2.0 L/min/M2. Maximum volume 2 L. Call night warehouse selector for additional fluid orders: pager #[phone]. Rate/Dose Verify 02/18/2024 8:00 AM EDT 1 mL/hr 1 mL/hr Rate/Dose Verify 02/18/2024 6:00 AM EDT 1 mL/hr 1 mL/hr Rate/Dose Verify 02/18/2024 4:00 AM EDT 1 mL/hr 1 mL/hr sodium chloride 0.9% infusion 10-30 mL/hr, Intravenous, DAILY PRN, Starting on Sat02/17/24 at 1307, Until Sat02/18/24 at 0835, Side port TKO rate, per [facility] nursing protocol. Rate/Dose Verify 02/17/2024 8:00 PM EDT 30 mL/hr 30 mL/hr Rate/Dose Verify 02/17/2024 6:00 PM EDT 30 mL/hr 30 mL/h r Rate/Dose Verify 02/17/2024 5:00 PM EDT 30 mL/hr 30 mL/h r sodium chloride 0.9% infusion 10-30 mL/hr, Intravenous, DAILY PRN, Starting on Sat02/17/24 at 1307, Until Sat02/18/24 at 0835, Side port TKO rate, per [facility] nrusing protocol. Rate/Dose Verify 02/18/2024 8:00 [...] Routine documented in this encounter Care Teams Furniture Designer Relationship Specialty Start Date End Date Aparna Jordan APRN PCP - General Family Medicine 10/21/23 05/26/24 documented as of this encounter
--- OUTSIDE RECORDS SUMMARY | 2024-06-10 08:38 | XMS_ITS | Encounter Summary ---
Author Organization [facility] Address [facility] [place] [address] Care Team Providers Care [employer] Principal Name Role Phone Vanessa Christian Lane DOTSON Primary Care Provider [phone] Reason for Visit * Reason Comments Coronary Artery Disease Aortic Stenosis Encounter Details Date Type Department Care Team (Latest Contact Info) Description 05/27/2024 11:00 AM EDT Office Visit Cardiology at [address] [place] [phone] Neftali Ernandez MD [facility] [place] [address] ASCVD (arteriosclerotic cardiovascular disease); Nonrheumatic aortic valve stenosis Social History Tobacco Use Types Packs/Day Years Used Date Smoking Tobacco: Former Cigarettes Smokeless Tobacco: Never Comments:Quit 15 + years ago Alcohol Use Standard Drinks/Week Comments Yes 0 (1 standard drink = 0.6 oz pur e alcohol) rare [facility] Utilities Answer Date Recorded In the past 12 months has e [employer], gas, oil, or water [employer] threatened to shut off services in your [...] PM EST Office Visit Cardiology at [address] [address] Neftali Ernandez MD [facility] [place] [address] documented as of this encounter Visit Diagnoses Diagnosis ASCVD (arteriosclerotic cardiovascular disease) Unspecified cardiovascular disease Nonrheumatic aortic valve stenosis Aortic valve disorders documented in this encounter Care Teams [employer] Principal Relationship Specialty Start Date End Date Vanessa Christian APRN [address] [place] [address] PCP - General Family Medicine 05/27/24 documented as of this encounter
--- OUTSIDE RECORDS SUMMARY | 2024-06-10 08:39 | XMS_ITS | Encounter Summary ---
Author Organization [facility] Address [facility] Ivana linareseileen [place] [id number] Care Team Providers Care Irrigator Sprinkling System Name Role Phone Vanessa Christian MAURI Primary Care Provider [phone] Reason for Referral * Consultation (Routine) - Closed Specialty Diagnoses / Procedures Referred By Contac t Referred To Contact Cardiac Surgery Diagnoses Nonrheumatic aortic valve stenosis significant - TAVR ( defers to Card Surg d/t age) Errol Loya MD [facility] [address] Zak Farmer MD [facility] [place]OTH[place] [address] Referral ID Status Reason Start Date Expiration Date V isits Requested Visits Authorized [id number] Closed Consult, Test & Treat 10/21/2023 10/20/2024 1 1 Reason for Visit * Reason Comments Chest Pain Shortness of Breath Aortic Stenosis Encounter Details Date Type Department Care Team (Late st Contact Info) Description 10/21/2023 1:20 PM EST Office Visit Cardiology at [address] [address] Errol Loya MD [facility] [place] [address] Nonrheumatic aortic valve stenosis Social History Tobacco [...] Problem List Diagnosis Aortic stenosis 12/2022 T[facility] ([facility]): VITA 0.8-0.9 cm2 (MG 28 mmHg, DOI 3.6 m/s, SVI 35 cc/m2). Trace regurgitation. Normal bi-v s/f, no other valve findings Gastroesophageal reflux Nevus of face Right caodaism Hypertension HLD (hyperlipidemia) MEDICATIONS: Current Outpatient Medications [...] and amplitude, II/ mid-late peaking high pitched ALEIHSA at base, no rg Estimated RAP not [...] the meantime will refer to T at [facility] for further evaluation. Logistics and preliminary review [...] the meantime will refer to T at [facility] for further evaluation. Logistics and preliminary review [...] PM EST Office Visit Cardiology at [address] [place] [phone] Errol Loya MD [facility] [address] Scheduled Referrals Name Type Priority Associated Diagnoses Order Schedule Amb Referral to Structural Heart Outpatient Referral Routine Nonrheumatic aortic valve stenosis Ordered: 10/21/2023 documented as of this encounter Visit Diagnoses Diagnosis Nonrheumatic aortic valve stenosis Aortic valve disorders documented in this encounter Care Teams Irrigator Sprinkling System Relationship Specialty Start Date End Date Vanessa Christian APRN PCP - General Family Medicine 10/21/23 05/26/24 documented as of this encounter
--- OUTSIDE RECORDS SUMMARY | 2024-06-10 08:39 | XMS_ITS | Encounter Summary ---
[place] [address] Care Team Providers Care Hand Thermal Cutter Name Role Phone Vanessa Christian Lane DOTSON Primary Care Provider [phone] Reason for Referral * Diagnostic Test (Routine) - Closed Specialty Diagnoses / Procedures Referred By Contac t Referred To Contact Radiology Diagnoses Nonrheumatic aortic valve stenosis Procedures CT Chest wo Contrast (Generic) Louisa Cho PA [facility] [place] [address] [facility] [place] [address] Referral ID Status Reason Start Date Expiration Date V isits Requested Visits Authorized [id number] Closed Specialty Service Requested 01/10/2024 07/11/2025 1 1 Reason for Visit * Diagnostic Test (Routine) - Closed Specialty Diagnoses / Procedures Referred By Contac t Referred To Contact Radiology Diagnoses Nonrheumatic aortic valve stenosis Procedures CT Chest wo Contrast (Generic) Louisa Cho PA [facility] [place] [address] [facility] [place] [address] Referral ID Status Reason Start Date Expiration Date V isits Requested Visits Authorized [id number] Closed Specialty Service Requested 01/10/2024 07/11/2025 1 1 Encounter Details Date Type Department Care Team (Latest Contact Info) Description 02/03/2024 7:36 AM EDT - 02/03/2024 8:05 AM EDT Hospital Encounter CT Scan at [facility] [place] [address] Zak Farmer MD [facility] [place] [address] Nonrheumatic aortic valve stenosis Discharge Disposition: Home Social History Tobacco Use Types Packs/Day Years Used Date Smoking Tobacco: Former Cigarettes Smokeless Tobacco: Never Comments:Quit 15 + years ago Alcohol Use Standard Drinks/Week Comments Yes 0 (1 standard drink = 0.6 oz pur e alcohol) rare [facility] Inpatient Questions Answer Date Recorded Does [...] 3:00 PM EST Office Visit Cardiology at [address] [place] [address] Neftali Ernandez MD [facility] [place] [address] documented as of this encounter Procedures Procedure Name Priority Date/Time Associated Diagnosis Comments CT CHEST WO CONTRAST (GENERIC) Routine 02/03/2024 7:44 AM EDT Nonrheumatic aortic valve stenosis documented in this encounter Results * CT Chest wo Contrast (Generic) (02/03/2024 7:44 AM EDT) [employer] WORKSTATION ID [id number] DH RAD Anatomical Region Laterality Modality Chest [...] who have questions please contact the health hemodialysis patient care specialist that requested your imaging first. ? Electronically signed by: Rogerio Wright MD, [facility] ([phone]), at 02/03/2024 10:00 AM Narrative 02/03/2024 10:00 [...] patients who have questions please contactthe health hemodialysis patient care specialist that requested your imaging first. Electronically signed by: Rogerio Wright MD, [facility]([phone]), at 02/03/2024 10:00 AM Zak Farmer MD IMG CT ORDERABLES documented in this encounter Visit Diagnoses Diagnosis Nonrheumatic aortic valve stenosis Aortic valve disorders documented in this encounter Care Teams Hand Thermal Cutter Relationship Specialty Start Date End Date Vanessa Christian APRN PCP - General Family Medicine 10/21/23 05/26/24 documented as of this encounter
--- OUTSIDE RECORDS SUMMARY | 2024-06-10 08:39 | XMS_ITS | Encounter Summary ---
Author Organization [facility] [place] [address] Care Team Providers Care Copping Machine Operator Name Role Phone Vanessa Christian APRN Primary Care Provider [phone] Encounter Details Date Type Department Care Team (Late st Contact Info) Description 10/21/2023 Abstract Cardiology at [address] [place] [phone] Adam Mayes RN Social History Tobacco Use [...] PM EST Office Visit Cardiology at [address] [place] [address] Neftali Ernandez MD [facility] [place] [address] documented as of this encounter Visit Diagnoses Not on filedocumented in this encounter Care Teams Copping Machine Operator Relationship Specialty Start Date End Date Vanessa Christian APRN PCP - General Family Medicine 10/21/23 05/26/24 documented as of this encounter
--- OUTSIDE RECORDS SUMMARY | 2024-06-10 08:39 | XMS_ITS | Encounter Summary ---
[place] [address] Care Team Providers Care Picker Feeder Name Role Phone Victor M Lafleur MD Primary Care Provider [phone] Reason for Visit * Reason Onset Date Comments Referral 09/20/2023 Encounter Details Date Type Department Care Team (Late st Contact Info) Description 09/20/2023 Telephone Cardiology at [address] [address] Karen Billy, rodeo clown Social History Tobacco Use Types Packs/Day Years [...] PM EST Office Visit Cardiology at [address] [place] [address] Neftali Ernandez MD [facility] [place] [address] documented as of this encounter Visit Diagnoses Not on filedocumented in this encounter Care Teams Picker Feeder Relationship Specialty Start Date End Date Victor M Lafleur MD PCP - General 10/02/13 10/20/23 documented as of this encounter
--- OUTSIDE RECORDS SUMMARY | 2024-06-10 08:39 | XMS_ITS | Encounter Summary ---
Author Organization [facility] Address [facility] [place] [address] Care Team Providers Care Meat And Poultry Inspector Name Role Phone Vanessa Christian MAURI Primary Care Provider [phone] Reason for Visit * Consultation (Routine) - Closed Specialty Diagnoses / Procedures Referred By Contac t Referred To Contact Cardiac Surgery Diagnoses Nonrheumatic aortic valve stenosis significant - TAVR ( defers to Card Surg d/t age) Neftali Ernandez MD [facility] [place] [address] Zak Farmer MD [facility] [place] [address] Referral ID Status Reason Start Date Expiration Date V isits Requested Visits Authorized [id number] Closed Consult, Test & Treat 10/21/2023 10/20/2024 1 1 Encounter Details Date Type Department Care Team (Late st Contact Info) Description 01/09/2024 1:40 PM EDT Office [place] [address] Zak Farmer MD [facility] [place] [address] Nonrheumatic aortic valve stenosis Social [...] office. Best personal regards, Zak Farmer MD [phone] In aggregate 55 minutes were spent evaluating [...] PM EST Office Visit Cardiology at [address] [place] [phone] Neftali Ernandez MD [facility] [place] [address] documented as of this encounter Results * [...] have questions please contact the health career professional that requested your imaging first. ? Electronically signed by: Toby Dave MD, [facility] ([phone]), at 01/09/2024 3:11 PM Narrative 01/09/2024 3:11 [...] who have questions please contactthe health career professional that requested your imaging first. Electronically signed by: Toby Dave MD, [facility]([phone]), at 01/09/2024 3:11 PM Zak Farmer MD IMG DX ORDERABLES * Basic Metabolic Panel (non-fasting) (01/09/2024 2:58 PM EDT) Glucose 102 65 - 199 mg/dL [facility] Comment:Diabetes: >=200 mg/d L plus symptoms Blood Urea Nitrogen 15 10 - 20 mg/dL [facility] Creatinine 0.94 0.80 - 1.50 mg/dL [facility] Sodium 137 135 - 145 mmol/L [facility] Potassium 4.5 3.5 - 5.0 mmol/L [facility] Comment: Please note: ??Patients with WBC >100,000 may have falsely elevated Potassium levels. ??For accurate Potassium quantification in these patients send serum separator tube (gold top) for subsequent determinations. ??Contact the Clinical Chemistry Laboratory if there are any questions. Chloride 103 98 - 107 mmol/L [facility] Carbon Dioxide 27 22 - 31 mmol/L [facility] Anion Gap 7 5 - 15 mmol/L [facility] Calcium 9.5 8.5 - 10.5 mg/dL [facility] Est Glomerular Filtration Rate 91 >=60 mL/min/1. 73 m?? [facility] [...] CHEMISTRY ORDERABLE S [facility] [place] [address] * Hepatic Function Panel (01/09/2024 2:58 PM EDT) Pathologist [facility] Protein, Total 6.7 6.1 - 8.0 g/dL [facility] Albumin 4.5 3.2 - 5.2 g/dL [facility] Aspartate Aminotransferase 21 0 - 39 unit/L [facility] Alanine Aminotransferase 21 0 - 55 unit/L [facility] Alkaline Phosphatase 81 40 - 130 unit/L [facility] Bilirubin, Total 0.7 0.2 - 1.3 mg/dL [facility] Bilirubin, Direct 0.2 0.0 - 0.3 mg/dL [facility] Blood 01/09/2024 2:58 PM EDT 01/09/2024 3:03 PM EDT Narrative Resulting Agency Comment Spec In Lab Zak Farmer MD CHEMISTRY ORDERABLE S Performing Organization Address [facility] Co de Phone Number [facility] [place] [address] * Prothrombin Time (01/09/2024 2:58 PM EDT) [facility] Prothrombin Time 10.6 9.4 - 12.5 sec [facility] International Normalization Ratio 0.9 [facility] Comment: An INR <2.0 [...] ORDERABL ES Performing Organization Address [facility]/ZIP Co de Phone Number [facility] [place] [address] * Type and Screen Future Surgery, [facility] SAME DAY PROGRAM ONLY) (01/09/2024 2:58 PM EDT) ABORH Type O NEGATIVE [facility] Patient BB History Not Found [facility] Expires at 2359 on: 02-20-2024 [facility] Ab Screen Interp Negative [facility] Blood 01/09/2024 2:58 PM EDT 01/09/2024 2:58 PM EDT Narrative Resulting Agency Comment Spec In Lab Zak Farmer MD BLOOD BANK LAB CECILIO ALEMAN [facility] Organization Address City/State/ZIP Co de Phone Number [facility] [place] [address] documented in this encounter Visit Diagnoses Diagnosis Nonrheumatic aortic valve stenosis Aortic valve disorders Nonrheumatic aortic valve stenosis Aortic valve disorders documented in this encounter Care Teams Meat And Poultry Inspector Relationship Specialty Start Date End Date Vanessa Christian APRN PCP - General Family Medicine 10/21/23 05/26/24 documented as of this encounter
--- OUTSIDE RECORDS SUMMARY | 2024-06-10 08:39 | XMS_ITS | Encounter Summary ---
Author Organization [facility] [place] [address] Care Team Providers Care Field Administrator Name Role Phone Vanessa Christian MAURI Primary Care Provider [phone] Reason for Visit * Auth/Cert (Routine) Specialty [...] W RHC (WRVU 5.9) Rima Dickinson MD [facility] [place] [address] [facility] Referral ID Status Reason Start Date Expiration Date Visits Re quested Visits Authorized [id number] 1 1 Encounter Details Date Type Department Care Team (Late st Contact Info) Description 02/03/2024 10:00 AM EDT - 02/03/2024 11:00 AM EDT Surgery [place] [address] Saira Lua MD [facility] [place] [address] CARDIAC CATHETERIZATION Social History Tobacco Use Types [...] lbs Follow-up Visits Follow up with your auto wrecker in 2-4 weeks Access Site 'Black and Blue' and tenderness is expected during the first week Call if you noted a mass (lump) greater than the size of a ellis Call Office with any Questions and if you have any of the following Clarence Lane M.D Interventional Power Plant Technician Perinatal Director #: [phone] * Attachments The following attachments cannot be sent through Care Everywhere. * CAD (Coronary Artery Disease): General Info (Scottish) * Coronary Angiogram: Post-op (Scottish) documented in this encounter Medications at Time [...] Lane MD - 02/03/2024 11:48 AM EDT [facility] Interventional Cardiology Adult Pre-Procedure H&P Update: Cardiac Catheterization Karlos Anthony [id number] 1960 Chief Complaint: Aortic stenosis HPI: Mr. [...] is inthe chart Clarence Lane MD Interventional Power Plant Technician 02/03/24 11:48 AM documented in this encounter Miscellaneous Notes * Brief Op Note - Clarence Lane MD - 02/03/2024 12:51 PM EDT Preliminary Cardiac Catheterization Procedure Note: Patient Name: Karlos Anthony : [id number] MR#: [id number] Case Date: 02/03/2024 Perinatal Director: Surgeon(s) and Role: * Saira Lua MD [...] PM EST Office Visit Cardiology at [address] [address] Neftali Ernandez MD [facility] [place] [address] Scheduled Orders Name Type Priority Associated Diagnoses [...] Modality Other Narrative 02/12/2024 3:47 PM EDT ?[facility] ? Cardiac Catheterization/Intervention Report ? Patient Name: Patenaude, Karlos ? Procedure Date: 02/03/2024 ? A #: [id number] ? Primary Physician: Saira Lua ? Case #: [id number] ? File Name: [id number] ? Catheterization Order Number: [id number] ? [facility] ? Final Report [place], [place] ? Patient Name: ? Karlos Patenaude ? ID#: ?[id number] ? : ?1960 ? Procedure Date: ? [...] Procedure Note Saira Lua MD - 02/12/2024 [facility] Cardiac Catheterization/Intervention Report Patient Name: Karlos Anthony Procedure Date: 02/03/2024 A #: [id number] Primary Physician: Saira Lua Case #: [id number] File Name: [id number] Catheterization Order Number: [id number] [facility] FinalReport [place], [place] Patient Name: Karlos Anthony ID#:[id number] :1960 Procedure Date: February 03, 2024 Case [...] was designated as ASA Class III. The [facility] clinical frailty scale is 3: Managing Well. [...] (Bezet) 372 ms MUSE SYSTEM Calculated P [place] 59 degrees MUSE SYSTEM Calculated R [place] 34 degrees MUSE SYSTEM Calculated T [place] 63 degrees MUSE SYSTEM INTERPRETATION Sinus bradycardia [...] MD) documented in this encounter Care Teams Field Administrator Relationship Specialty Start Date End Date Vanessa Christian APRN PCP - General Family Medicine 10/21/23 05/26/24 documented as of this encounter
--- OUTSIDE RECORDS SUMMARY | 2024-06-10 08:39 | XMS_ITS | Encounter Summary ---
Author Organization [facility] [place] [address] Care Team Providers Care Anime Designer Name Role Phone Vanessa Christian APRN Primary Care Provider [phone] Encounter Details Date Type Department Care Team [...] 3:00 PM EST Office Visit Cardiology at [address] [place] [phone] Neftali Ernandez MD [facility] [address] documented as of this encounter Visit Diagnoses Not on filedocumented in this encounter Care Teams Anime Designer Relationship Specialty Start Date End Date Vanessa Christian APRN PCP - General Family Medicine 10/21/23 05/26/24 documented as of this encounter
--- OUTSIDE RECORDS SUMMARY | 2024-06-10 08:39 | XMS_ITS | Encounter Summary ---
Author Organization Formerly [facility] [place] [address] Care Team Providers Care Watch Crystal Cutter Name Role Phone Vanessa Christian MAURI Primary Care Provider [phone] Encounter Details Date Type Department Care Team (Latest Contact Info) Description 01/09/2024 3:00 PM EDT Laboratory [place] [phone] Nonrheumatic aortic valve stenosis Social History Tobacco Use Types Packs/Day Years Used Date Smoking Tobacco: Former Cigarettes Smokeless Tobacco: Never Comments:Quit 15 + years ago Alcohol Use Standard Drinks/Week Comments Yes 0 (1 standard drink = 0.6 oz pur e alcohol) rare [facility] Inpatient Questions Answer Date Recorded Prevent [...] PM EST Office Visit Cardiology at [address] [phone] Neftali Ernandez MD [facility] [place] [address] documented as of this encounter Procedures Procedure Name Priority Date/Time Associated Diagnosis Comments ABORH RECHECK STATUS Routine 01/09/2024 2:58 PM EDT HEMOGRAM Routine 01/09/2024 2:58 PM EDT Nonrheumatic aortic valve stenosis DIFFERENTIAL, AUTOMATED Routine 01/09/2024 2:58 PM EDT Nonrheumatic aortic valve stenosis TYPE AND SCREEN, SDP (FUTURE SURGERY, [facility] SAME DAY PROGRAM ONLY) Routine 01/09/2024 2:58 [...] PM EDT) ABORH Recheck Order Order Placed [facility] ABORH Type Recheck Completed [facility] Blood 01/09/2024 2:58 PM EDT 01/09/2024 3:08 PM EDT Narrative Resulting Agency Comment Spec In Lab Zak Farmer MD BLOOD BANK LAB CECILIO ALEMAN [facility] [place] [address] * Differential, Automated (01/09/2024 2:58 PM EDT) Neutrophil % 70.5 % [facility] Neutrophil Absolute 4.34 1.70 - 6.10 x10(3)/[facility] Lymph % 18.9 % [facility] Lymphocytes Abs 1.2 0.9 - 3.2 x10(3)/[facility] Monocyte % 8.0 % [facility] Monocyte Abs 0.5 0.3 - 0.9 x10(3)/[facility] Eos % 1.6 % [facility] Eosinophils Abs 0.1 0.0 - 0.4 x10(3)/[facility] Basophil % 0.5 % [facility] Baso Absolute 0.0 0.0 - 0.1 x10(3)/[facility] Immature Gran % 0.50 % [facility] Comment: Immature granulocytes(IG's)percentage and absolute count will include metamyelocytes, myelocytes, and promyelocytes. Blood smears from CBCs yielding IG's will be scanned manually for concordance. If this scan disagrees with the automated IG or if promyelocytes are noted, a manual differential will be performed. Immature Gran Absolute 0.03 0.00 - 0.04 x10(3)/[facility] Blood 01/09/2024 2:58 PM EDT 01/09/2024 3:03 PM EDT Narrative Resulting Agency Comment Spec In Lab Zak Farmer MD HEMATOLOGY ORDERABL ES [facility] [place] [address] * Hemogram (01/09/2024 2:58 PM EDT) White Blood Cell 6.2 4.0 - 9.5 x10(3)/[facility] Red Blood Cell 5.53 4.58 - 5.54 x10(6)/[facility] Hemoglobin 16.1 13.7 - 16.5 g/dL [facility] Hematocrit 46.9 40.5 - 48.5 % [facility] Mean Cell Volume 84.8 82.9 - 93.1 fL [facility] Mean Cell Hemoglobin 29.1 27.5 - 32.1 pg [facility] Mean Cell Hemoglobin Concentration 34.3 32.0 - 35.7 g/dL [facility] Platelet 187 145 - 357 x10(3)/[facility] RDW Standard Deviation 39.2 36.0 - 45.0 fL [facility] RDW coefficient of variation 12.6 11.4 - 13.8 % [facility] Mean Platelet Volume 9.5 7.6 - 12.9 fL [facility] NRBC% auto 0.0 % [facility] NRBC Absolute 0.000 0.000 - 0.000 x10(3)/[facility] Blood 01/09/2024 2:58 PM EDT 01/09/2024 3:03 PM EDT Narrative Resulting Agency Comment Spec In Lab Zak Farmer MD HEMATOLOGY ORDERABL ES [facility] [place] [address] * Basic Metabolic Panel (non-fasting) (01/09/2024 2:58 PM EDT) Glucose 102 65 - 199 mg/dL [facility] Comment:Diabetes: >=200 mg/d L plus symptoms Blood Urea Nitrogen 15 10 - 20 mg/dL [facility] Creatinine 0.94 0.80 - 1.50 mg/dL [facility] Sodium 137 135 - 145 mmol/L [facility] Potassium 4.5 3.5 - 5.0 mmol/L [facility] Comment: Please note: ??Patients with WBC >100,000 may have falsely elevated Potassium levels. ??For accurate Potassium quantification in these patients send serum separator tube (gold top) for subsequent determinations. ??Contact the Clinical Chemistry Laboratory if there are any questions. Chloride 103 98 - 107 mmol/L [facility] Carbon Dioxide 27 22 - 31 mmol/L [facility] Anion Gap 7 5 - 15 mmol/L [facility] Calcium 9.5 8.5 - 10.5 mg/dL [facility] Est Glomerular Filtration Rate 91 >=60 mL/min/1. 73 m?? [facility] Comment: This patient's estimated GFR [...] Lab Zak Farmer MD CHEMISTRY ORDERABLE S [facility] [place] [address] * Hepatic Function Panel (01/09/2024 2:58 PM EDT) Protein, Total 6.7 6.1 - 8.0 g/dL [facility] Albumin 4.5 3.2 - 5.2 g/dL [facility] Aspartate Aminotransferase 21 0 - 39 unit/L [facility] Alanine Aminotransferase 21 0 - 55 unit/L [facility] Alkaline Phosphatase 81 40 - 130 unit/L [facility] Bilirubin, Total 0.7 0.2 - 1.3 mg/dL [facility] Bilirubin, Direct 0.2 0.0 - 0.3 mg/dL [facility] Blood 01/09/2024 2:58 PM EDT 01/09/2024 3:03 PM EDT Narrative Resulting Agency Comment Spec In Lab Zak Farmer MD CHEMISTRY ORDERABLE S Performing Organization Address [facility] Co de Phone Number [facility] [place] [address] * Prothrombin Time (01/09/2024 2:58 PM EDT) Prothrombin Time 10.6 9.4 - 12.5 sec [facility] International Normalization Ratio 0.9 [facility] Comment: An INR [...] MD HEMATOLOGY ORDERABL ES Performing Organization Address [facility] Co de Phone Number [facility] [place] [address] * Type and Screen Future Surgery, [facility] SAME DAY PROGRAM ONLY) (01/09/2024 2:58 PM EDT) ABORH Type O NEGATIVE [facility] Patient BB History Not Found [facility] Expires at 2359 on: 02-20-2024 [facility] Ab Screen Interp Negative [facility] Blood 01/09/2024 2:58 PM EDT 01/09/2024 2:58 PM EDT Narrative Resulting Agency Comment Spec In Lab Zak Farmer MD BLOOD BANK LAB ORDE RABLES Performing Organization Address City/[facility]/[place] [address] documented in this encounter Visit Diagnoses Diagnosis Nonrheumatic aortic valve stenosis Aortic valve disorders documented in this encounter Care Teams Watch Crystal Cutter Relationship Specialty Start Date End Date Vanessa Christian APRN PCP - General Family Medicine 10/21/23 05/26/24 documented as of this encounter
--- OUTSIDE RECORDS SUMMARY | 2024-06-10 08:39 | XMS_ITS | Encounter Summary ---
Author Organization [facility] [place] [address] Care Team Providers Care Refining Equipment Operator Name Role Phone Vanessa Christian Lane DOTSON Primary Care Provider [phone] Encounter Details Date Type Department Care Team (Late st Contact Info) Description 01/09/2024 2:30 PM EDT Clinical Support Same Day at [facility] [place] [phone] Social History Tobacco Use Types Packs/Day Years Used Date Smoking Tobacco: Former Cigarettes Smokeless Tobacco: Never Comments:Quit 15 + years ago Alcohol Use Standard Drinks/Week Comments Yes 0 (1 standard drink = 0.6 oz pur e alcohol) rare [facility] Inpatient Questions Answer Date Recorded Prevent Contact [...] you tube link for a video about [facility] cardiac surgery. Instructed to bring the booklet [...] type and screen performed while in the [facility]. Sent to Radiology for chest x-ray. Special medication instructions: None Procedure date: not booked. Darian documented in this encounter Plan of Treatment Upcoming Encounters Date Type Department Care Team (Late st Contact Info) Description 11/30/2024 3:00 PM EST Office Visit Cardiology at [address] [place] [address] Neftali Ernandez MD [facility] [place] [address] documented as of this encounter Visit Diagnoses Not on filedocumented in this encounter Care Teams Refining Equipment Operator Relationship Specialty Start Date End Date Vanessa Christian APRN PCP - General Family Medicine 10/21/23 05/26/24 documented as of this encounter
--- OUTSIDE RECORDS SUMMARY | 2024-06-10 08:39 | XMS_ITS | Encounter Summary ---
Author Organization [facility] [place]ana [facility] [place] [address] Care Team Providers Care Brush Painter Name Role Phone Vanessa Christian MAURI Primary Care Provider [phone] Reason for Visit * Auth/Cert (Routine) Specialty [...] 7.93) Zak Farmer MD [facility] [place] [address] [facility] Referral ID Status Reason Start Date Expiration Date Visits Re quested Visits Authorized [id number] 1 1 Encounter Details Date Type Department Care Team (Late st Contact Info) Description 02/17/2024 7:35 AM EDT Anesthesia Event Main Operating Room [facility] [place] [phone] Roman York MD [facility] [place] [address] Anesthesia Record Procedure Summary Procedure Name Responsible [...] by Sadiq Woo RN PIV 02/17/24; 0715; lvhg-ght-abtrcd catheter system; 18 gauge; cephalic vein (lateral [...] oz pur e alcohol) rare [facility] Utilities Answer Date Recorded In the past 12 months has th e electric, gas, oil, or water [employer] threatened to shut off services in your [...] Procedure Summary Date: 02/17/24 Room / Location: [facility] OR [address] [place] [address] MAIN OR Anesthesia Start: 734 Anesthesia Stop: [...] shown include unfiled device data. Patient Location: [facility] Level of Consciousness: Sedated (Pharmacologic/Intentional) [...] 08/14/2023 ??? 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 Social [...] PM EST Office Visit Cardiology at [address] [place] [address] Neftali Ernandez MD [facility] [place] [address] documented as of this encounter [...] mg documented in this encounter Care Teams Brush Painter Relationship Specialty Start Date End Date Vanessa Christian APRN PCP - General Family Medicine 10/21/23 05/26/24 documented as of this encounter
--- OUTSIDE RECORDS SUMMARY | 2024-06-10 08:39 | XMS_ITS | Encounter Summary ---
Author Organization Formerly [facility] [place] [address] Care Team Providers Care Airport Operations Duty Manager Name Role Phone Vanessa Christian APRN Primary Care Provider [phone] Encounter Details Date Type Department Care Team [...] 3:00 PM EST Office Visit Cardiology at [address] [place] [phone] Neftali Ernandez MD [facility] [place] [address] documented as of this encounter Visit Diagnoses Not on filedocumented in this encounter Care Teams Airport Operations Duty Manager Relationship Specialty Start Date End Date Vanessa Christian APRN PCP - General Family Medicine 10/21/23 05/26/24 documented as of this encounter
--- OUTSIDE RECORDS SUMMARY | 2024-06-10 08:39 | XMS_ITS | Encounter Summary ---
Author Organization Formerly [facility] Address [facility] [place] [address] Care Team Providers Care Global Coordinator Name Role Phone Vanessa Christian APRN Primary Care Provider [phone] Encounter Details Date Type Department Care Team [...] PM EST Office Visit Cardiology at [address] [place] [address] Neftali Ernandez MD [facility] [place] [address] documented as of this encounter Visit Diagnoses Not on filedocumented in this encounter Care Teams Global Coordinator Relationship Specialty Start Date End Date Vanessa Christian APRN PCP - General Family Medicine 10/21/23 05/26/24 documented as of this encounter
--- OUTSIDE RECORDS SUMMARY | 2024-06-10 08:39 | XMS_ITS | Encounter Summary ---
Author Organization [facility] [place] [address] Care Team Providers Care Engineering Program Manager Name Role Phone Vanessa Christian APRN Primary Care Provider [phone] Encounter Details Date Type Department Care Team (Late st Contact Info) Description 10/21/2023 Abstract Cardiology at [address] [phone] Adam Mayes RN Social History Tobacco Use [...] 3:00 PM EST Office Visit Cardiology at [address] [address] Neftali Ernandez MD [facility] [address] documented as of this encounter Visit Diagnoses Not on filedocumented in this encounter Care Teams Engineering Program Manager Relationship Specialty Start Date End Date Vanessa Christian APRN PCP - General Family Medicine 10/21/23 05/26/24 documented as of this encounter
--- OUTSIDE RECORDS SUMMARY | 2024-06-10 08:39 | XMS_ITS | Encounter Summary ---
Author Organization Formerly [facility] [place] [address] Care Team Providers Care Instrument Operator Name Role Phone Vanessa Christian MAURI Primary Care Provider [phone] Encounter Details Date Type Department Care Team (Late st Contact Info) Description 01/10/2024 Orders [place] [phone] Lawson Napoles PA [facility] [place] [address] Screening for cardiovascular condition; Aortic valve stenosis, [...] PM EST Office Visit Cardiology at [address] [place] [phone] Neftali Ernandez MD [facility] [place] [address] documented as of this encounter Visit Diagnoses Diagnosis Screening for cardiovascular condition Screening for other and unspecified cardiovascular conditions Aortic valve stenosis, etiology of cardiac valve disease unspecified documented in this encounter Care Teams Instrument Operator Relationship Specialty Start Date End Date Vanessa Christian APRN PCP - General Family Medicine 10/21/23 05/26/24 documented as of this encounter
--- OUTSIDE RECORDS SUMMARY | 2024-06-10 08:39 | XMS_ITS | Encounter Summary ---
Author Organization Formerly [facility] Address [facility] [place] [address] Care Team Providers Care Armature Winder Helper Repair Name Role Phone Vanessa Christian MAURI Primary Care Provider [phone] Encounter Details Date Type Department Care Team (Late st Contact Info) Description 02/14/2024 Orders [place] [phone] Zak Farmer MD [facility] [place] [address] Coronary artery disease, unspecified vessel or lesion type, unspecified whether angina present, unspecified whether [place] or transplanted heart (Primary Dx) Social History [...] 3:00 PM EST Office Visit Cardiology at [address] [place] [phone] Neftali Ernandez MD [facility] CARDIOLOGY [place], [place] [phone] documented as of this encounter Results * EKG 12 Lead (03/12/2024 2:35 PM EDT) Ventricular rate 59 BPM MUSE SYSTEM Atrial Rate 59 BPM MUSE SYSTEM P-R Interval 190 ms MUSE SYSTEM QRS Duration 92 ms MUSE SYSTEM Q-T Interval 406 ms MUSE SYSTEM QTC Calculated (Bezet) 401 ms MUSE SYSTEM Calculated P Morrison -12 degrees MUSE SYSTEM Calculated R Morrison 24 degrees MUSE SYSTEM Calculated T Morrison 74 degrees MUSE SYSTEM INTERPRETATION Sinus bradycardia T wave abnormality, consider anterior ischemia Abnormal ECG When compared with ECG of 17-FEB-2024 13:24, NV interval has decreased T wave inversion now evident in Anterior leads Confirmed by Paul Guzman ([id number]) on 03/15/2024 8:36:23 AM MUSE SYSTEM 03/12/2024 2:35 PM EDT 03/15/2024 8:36 AM EDT Zak Farmer MD ECG ORDERABLES MUSE SYSTEM * XR Chest PA & Lateral (Generic) (03/12/2024 1:42 PM EDT) WORKSTATION ID [id number] RAD Anatomical Region Laterality Modality Chest N/A [...] questions please contact the health child care cook that requested your imaging first. ? Electronically signed by: Augie Sanchez MD, [facility] ([phone]), at 03/13/2024 8:28 AM Narrative 03/13/2024 8:28 AM EDT EXAMINATION: XR CHEST PA AND LATERAL (GENERIC) CLINICAL HISTORY: s/p cabg eval effusions I25.10, Atherosclerotic heart disease of [place] coronary artery without angina pectoris TECHNIQUE: PA [...] eval effusions I25.10, Atherosclerotic heart disease of [place] coronary artery withoutangina pectoris TECHNIQUE: PA and [...] have questions please contactthe health child care cook that requested your imaging first. Electronically signed by: Augie Sanchez MD, [facility]([phone]), at 03/13/2024 8:28 AM Zak Farmer MD IMG DX ORDERABLES documented in this encounter Visit Diagnoses Diagnosis Coronary artery disease, unspecified vessel or lesion type, unspecified whether angina present, unspecified whether [place] or transplanted heart- Primary Coronary artery disease, unspecified vessel or lesion type, unspecified whether angina present, unspecified whether [place] or transplanted heart documented in this encounter Care Teams Armature Winder Helper Repair Relationship Specialty Start Date End Date Vanessa Christian APRN PCP - General Family Medicine 10/21/23 05/26/24 documented as of this encounter
--- OUTSIDE RECORDS SUMMARY | 2024-06-10 08:39 | XMS_ITS | Encounter Summary ---
Author Organization [facility] Address [facility] [place] [address] Care Team Providers Care Pot Maker Name Role Phone Vanessa Christian MAURI Primary Care Provider [phone] Encounter Details Date Type Department Care Team (Latest Contact Info) Description 01/09/2024 3:02 PM EDT - 01/09/2024 11:59 PM EDT Hospital Encounter XRay at [address] [place] [address] Zak Farmer MD [facility] [place] [address] Nonrheumatic aortic valve stenosis Discharge Disposition: Home [...] 3:00 PM EST Office Visit Cardiology at [address] [place] [address] Neftali Ernandez MD [facility] [place] [address] documented as of this encounter Procedures Procedure [...] questions please contact the health resident care aid that requested your imaging first. ? Narrative [...] have questions please contactthe health resident care aid that requested your imaging first. Zak Farmer MD IMG DX ORDERABLES documented in this encounter Visit Diagnoses Diagnosis Nonrheumatic aortic valve stenosis Aortic valve disorders documented in this encounter Care Teams Pot Maker Relationship Specialty Start Date End Date Vanessa Christian APRN PCP - General Family Medicine 10/21/23 05/26/24 documented as of this encounter
--- OUTSIDE RECORDS SUMMARY | 2024-06-10 08:39 | XMS_ITS | Encounter Summary ---
Author Organization [facility] Address [facility] [place] [address] Care Team Providers Care Food Broker Name Role Phone Vanessa Christian GLOVE MACHINE OPERATOR Primary Care Provider [phone] Reason for Referral * Diagnostic Test (Routine) - Closed Specialty Diagnoses / Procedures Referred By Contac t Referred To Contact Radiology Diagnoses Nonrheumatic aortic valve stenosis Procedures CT Chest wo Contrast (Generic) Louisa Reid PA [facility] [place] [address] [facility] [place] [address] Referral ID Status Reason Start Date Expiration Date V isits Requested Visits Authorized [id number] Closed Specialty Service Requested 01/10/2024 07/11/2025 1 1 Encounter Details Date Type Department Care Team (Late st Contact Info) Description 01/09/2024 Orders [place] [address] Zak Farmer MD [facility] [place] [address] Nonrheumatic aortic valve stenosis Social History Tobacco [...] PM EST Office Visit Cardiology at [address] [place] [address] Neftali Ernandez MD [facility] [place] [address] documented as of this encounter Results * CT Chest wo Contrast (Generic) (02/03/2024 7:44 AM EDT) WORKSTATION ID [id number] RAD Anatomical Region Laterality Modality Chest Computed [...] have questions please contact the health healthcare translator that requested your imaging first. ? Narrative [...] who have questions please contactthe health healthcare translator that requested your imaging first. Zak Farmer MD IMG CT ORDERABLES documented in this encounter Visit Diagnoses Diagnosis Nonrheumatic aortic valve stenosis Aortic valve disorders Nonrheumatic aortic valve stenosis Aortic valve disorders documented in this encounter Care Teams Food Broker Relationship Specialty Start Date End Date Vanessa Christian APRN PCP - General Family Medicine 10/21/23 05/26/24 documented as of this encounter
--- OUTSIDE RECORDS SUMMARY | 2024-06-10 08:39 | XMS_ITS | Encounter Summary ---
Author Organization [facility] [place] [address] Care Team Providers Care Retail Customer Service Specialist Name Role Phone Vanessa Christian APRN Primary Care Provider [phone] Encounter Details Date Type Department Care Team (Late st Contact Info) Description 12/26/2023 Notes Only Cardiology at [address] [address] Neftali Ernandez MD [facility] [place] [address] Social History Tobacco Use Types Packs/Day Years [...] 1:37 PM EDT [facility] Indeed, the aortic valve appears severely stenotic. Cannotrule out bicuspid valve documented in this encounter Plan of Treatment Upcoming Encounters Date Type Department Care Team (Late st Contact Info) Description 11/30/2024 3:00 PM EST Office Visit Cardiology at [address] [address] Neftali Ernandez MD [facility] [place] [address] documented as of this encounter Visit Diagnoses Not on filedocumented in this encounter Care Teams Retail Customer Service Specialist Relationship Specialty Start Date End Date Vanessa Christian APRN PCP - General Family Medicine 10/21/23 05/26/24 documented as of this encounter
--- OUTSIDE RECORDS SUMMARY | 2024-06-10 08:39 | XMS_ITS | Encounter Summary ---
[facility] [place] [address] Care Team Providers Care Lobbyist Name Role Phone Aparna Jordan MAURI Primary Care Provider [phone] Reason for Visit * Auth/Cert (Routine) Specialty [...] ARTERIAL GRAFT (WRVU 7.93) Hayder Graham MD [facility] [place] [address] [facility] Referral ID Status Reason Start Date Expiration Date Visits Re quested Visits Authorized [id number] 1 1 Encounter Details Date Type Department Care Team (Late st Contact Info) Description 02/17/2024 7:30 AM EDT - 02/17/2024 1:26 PM EDT Surgery [place] [id number] Hayder Graham MD [facility] [place] [address] ENDOSCOPIC HARVEST VEIN(S) FOR CABG (WRVU 0.31) Social History Tobacco Use Types Packs/Day Years Used Date Smoking Tobacco: Former Cigarettes Smokeless Tobacco: Never Comments:Quit 15 + years ago Alcohol Use Standard Drinks/Week Comments Yes 0 (1 standard drink = 0.6 oz pur e alcohol) rare [facility] Utilities Answer Date Recorded In the past [...] Patient Age: 63 y.o. Birthdate: 1960 Language: Uzbek Race: White Ethnicity: Not nor Admit Date: 02/17/2024 Discharge Date: 02/24/24 Attending Physician: Hayder Graham MD Follow-up Recommendations for Providers: Please continue routine management of cardiovascular risk factors including blood pressure, lipids,glucose, etc. Please note any changes to medications. Patient to follow up with PCP, Aparna Jordan APRN, in 1-2 weeks. Patient to follow up with Quahogger, Neftali Ernandez MD , in 2 weeks. Patient to follow up with Cardiac Surgeon, Dr. Hayder Graham, with a chest x-ray, EKG, and Echo. Inpatient Provider Contact Information: 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 Past Surgical History: Procedure Laterality Date PRO CABG, ARTERIAL, SINGLE N/A 02/17/2024 @CABG, USING ARTERIAL GRAFT;SINGLE ARTERIAL GRAFT (WRVU 33.75) performed by Hayder Graham MD at [facility] MAIN OR PRO CABG, ARTERY-VEIN, TWO N/A 02/17/2024 @CABG, TWO VENOUS GRAFTS & ARTERIAL GRAFT (WRVU 7.93) performed by Hayder Graham MD at [facility] MAIN OR PRO ENDOSCOPY W/VIDEO-ASST VEIN HARVEST, CABG Left 02/17/2024 ENDOSCOPIC HARVEST VEIN(S) FOR CABG (WRVU 0.31) performed by Hayder Graham MD at [facility] MAIN OR PRO REPLACEMENT PROSTHETIC AORTIC VALVE OPEN W CARDIOPULMONARY BYPASS HOMOGRF/STENT N/A 02/17/2024 @REPLACE AORTIC VALVE, OPEN, W\CPB, W\PROSTHETIC VALVE (WRVU 41.32) performed by Hayder Graham MD at [facility] MAIN OR Prior To Admission Medications [...] insufficiency. He has glaucoma. He used to bac[employer]biq Mobile until about 15 years ago. He has undergone prior herniorrhaphy. 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 Major Procedures/Operations: 02/17/24 s/p avr/cabgx3 CABG x 3 JOSE->LAD SVG->dRCA SVG->OM1 EVH from LLE AVR with a 23 mm Inspiris Bioprosthesis Hospital Course: Karlos Garcia was admitted to [facility] on 02/17/2024 via the Same Day [...] Hayder Graham and/or the Cardiac Surgery Physician Intermediate Accountant Team may be reached at . Antibiotic [...] Please refer to the card with the [place] Heart Association Guidelines for more information. You [...] Dr. Hayder Graham. You may use a [place] Track or treadmill but avoid any pulling [...] should resume a low fat, low cholesterol, [place] Heart Association Diet. Driving: No driving until [...] while being managed by your PCP and/or Quahogger. For future medication refills, please refer to your PCP and/or Quahogger after your discharge from our service. Thank you REMOVE CHEST TUBE SUTURES ON OR AFTER 03/02/24 Home oxygen therapy: N/A Follow up appointments: You should follow up with your PCP, Aparna Jordan APRN, in 1-2 weeks. Our office will schedule an appointment with your Quahogger, Neftali Ernandez MD , in 2 weeks. You have an appointment with your Cardiac Surgeon, Dr. Hayder Graham, 4 weeks with a chest x-ray, EKG, and Echo before your appointment. Cardiac Rehabilitation: Karlos Garcia was seen regarding participation in the outpatient Phase 2Cardiac Rehabilitation at [facility]. The patient agrees to a referral to this program. The referral will be sent at discharge and the patient should be contacted by the Program within 1- 2 weeks from discharge. Future Appointments and Orders Future Orders Complete By Expires Echocardiogram Transthoracic [51967 CPT(R)] 03/26/2024 09/25/2024 Process Instructions: Scheduling Instructions: Questions: Where will study be performed?: [facility] Clinics Does the patient have Congenital Heart Disease?: Does patient require sedation?: Sedation rationale: XR Chest PA & Lateral (Generic) [28157 85525 Custom] 03/26/2024 09/25/2024 Process Instructions: Scheduling Instructions: Questions: Portable exam?: Reason for exam and clinical history: s/p avr/cabg Clinical information / jerome questions for radiologist: Stat read required?: Date of injury if applicable: Requested Time: Where will study be performed?: [facility] Radiology Referral to Cardiac Rehab [BXG005 Custom] As directed Process Instructions: If no progress note charted, please enter Clinical details in comments. Scheduling Instructions: Questions: My question or request is: s/p AVR/CABG. Cardiac rehab at [facility]. Referral to Home Health [REF34 Custom] As directed Process Instructions: If no progress note charted, please enter Clinical details in comments. Scheduling Instructions: Comments: Please evaluate Karlos Garcia for admission to Home Health. [address] Phone Number: Date of : 1960 Inpatient DOCUMENTATION FOR VNA SERVICES (INCLUDING THOSE PATIENTS WITH MEDICARE COVERAGE REQUIRING HOME VNA SERVICES AND/OR HOSPICE SERVICES) PATIENT'S LOCATION: Karlos Garcia [address] [place] [phone] Water Regulator And Valve Repairer's Name: self/family In discussion with the attending physician, it is certified that this patient is under their care and that they, or a Nurse Practitioner, or Physician Intermediate Accountant who is working directly with them, hada [...] for services as follows: HOME HEALTH AGENCY: [facility] [address] [place] [id number] RN orders: Cardiopulmonary assessment, incisional assessment, assess [...] issues please call the Cardiology Office at [phone] FOR MEDICARE ONLY: (please delete this section [...] [facility] Section of [facility]iac Surgery [facility] [address] FAX [phone] Date: 02/24/2024 CC: Aparna Jordan, MAURI Jordan, Aparna Sherman APRN [address] [place] [address] documented in this encounter Discharge Instructions * [...] Hayder Graham and/or the Cardiac Surgery Physician Intermediate Accountant Team may be reached at . Antibiotic [...] Please refer to the card with the [place] Heart Association Guidelines for more information. You [...] until after your return appointment with Dr. Hayedr Graham. You may use a [place] Track or treadmill but avoid any pulling [...] should resume a low fat, low cholesterol, [place] Heart Association Diet. Driving: No driving until [...] while being managed by your PCP and/or Quahogger. For future medication refills, please refer to your PCP and/or Quahogger after your discharge from our service. Thank you REMOVE CHEST TUBE SUTURES ON OR AFTER 03/02/24 Home oxygen therapy: N/A Follow up appointments: You should follow up with your PCP, Aparna Jordan APRN, in 1-2 weeks. Our office will schedule an appointment with your Quahogger, Neftali Ernandez MD , in 2 weeks. You have an appointment with your Cardiac Surgeon, Dr. Hayder Graham, 4 weeks with a chest x-ray, EKG, and Echo before your appointment. Cardiac Rehabilitation: Karlos Garcia was seen regarding participation in the outpatient Phase 2Cardiac Rehabilitation at [facility]. The patient agrees to a [...] 0600 and on the weekends please page [phone]. * Eric Barahona PA - 02/23/2024 9:27 [...] 0600 and on the weekends please page [phone]. * Tiffanie Owens - 02/22/2024 2:48 PM [...] Pt reports his dtr is coming from [place] to stay upon d/c for 10 days. Pt was indep [employer]. He drives. He works Precautions/Special Considerations: STERNAL [...] LRAD and supervision Time IN / OUT: 5489-0063 Total Time: 30 minutes; TEFx2 Tiffanie Owens Pager: [phone] Physical Therapy Inpatient Rehabilitation Department * Romeo [...] 0600 and on the weekends please page [phone]. * Kelley Hinson [employer] - 02/21/2024 10:15 AM EDT Physical Therapy [...] Pt reports his dtr is coming from [place] to stay upon d/c for 10 days. Pt was indep [employer]. He drives. He works Precautions/Special Considerations: STERNAL [...] LRAD and supervision Time IN / OUT: 1068-7944 Total Time: 25 minutes; TEF 2 Kelley Hinson PTA Pager: [phone] Physical Therapy Inpatient Rehabilitation Department * Louisa [...] 0600 and on the weekends please page [phone]. * Kelley Hinson PTA - 02/20/2024 3:32 [...] at that time Kelley Hinson PTA Pager: [phone] Physical Therapy Inpatient Rehab Department * Louisa [...] 0600 and on the weekends please page [phone]. * Maris Benavides, PT - 02/19/2024 11:22 [...] Pt reports his dtr is coming from [place] to stay upon d/c for 10 days. Pt was indep [employer]. He drives. He works. Precautions/Special Considerations: STERNAL [...] outlined inthis evaluation. MARIS BENAVIDES, PT Pager: [phone] Physical Therapy Inpatient Rehabilitation Department Time IN / OUT: 3490-0755 Total Time: 38 (eval) minutes; * Antonio [...] 0600 and on the weekends please page [phone]. * Minnie Begum PA - 02/18/2024 8:25 [...] 0600 and on the weekends please page [phone]. * Kim Ha SHOP FOREMAN - 02/17/2024 2:25 PM EDT Respiratory Care [...] condition or operative plan since last visit. Hadyer Graham MD [phone] Source Note - Hayder Graham MD - [...] given written informed consent. Hayder Graham MD [phone] * Hayder Graham MD - 02/17/2024 7:00 [...] given written informed consent. Hayder Graham MD [phone] documented in this encounter Miscellaneous Notes * [...] information for follow-up Home Health & Hospice, [address] [place] [address] Cardiac Rehab, [address] [place] [address] Transportation: family or friend will provide Functional status prior to admission: Independent Home Environment: Others in the home: alone. Current Living Arrangements: home/apartment/condo. Accessibility Concerns:a few steps to enter 1 floor home. Current Functional Ability: Assistive Person and Equipment DME used at home: none DME Needed at Discharge: N/A Patient is insured through: Primary Insurance: [employer] Payor: [facility] / Plan: [facility] PPO / Product Type: *No [...] pain managed with scheduled Tylenol. Worked with [employer] Ambulated in the roque multiple times during [...] anticipated Patient is insured through: Primary Insurance: [facility] Payor: [facility] / Plan: [facility] PPO / Product Type: *No Product type* / Secondary Insurance: N/A Last Physical Therapy Recommendation: home with home health (Str coming to stay for a week or two upon d/c) with to be determined (owns rolling walker, shower seat) Plan for discharge is: Home w/ Services Outpatient Agency/Support Group Needs: Homecare agency Home Health Services: Physical Therapy, Registered Nurse Agency Referrals: [facility]. [address] [place] [address] Transportation: family or friend will provide Barriers to discharge: Discharge planning Plan going forward: Service Care Management will continue to follow and assist with discharge planning and coordination of care as indicated. Anticipated Date of Discharge: 02/22/2024 Rhett Bell RN RN/CM - Cellphone: [phone] Pager: [phone] Covering Service RN/CM * Plan of Care [...] Yang RN - 02/19/2024 10:[address] [facility] CARDIAC REHABILITATION Karlos Garcia was seen today regarding participation in the outpatient Phase 2 Cardiac Rehabilitation at [facility]. 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 (Only good for 180 days) Any patient receiving care in [place] must abide by [place] law. The hierarchy for surrogate decision making [...] steady place to sleep or slept in [facility] (including now)?: No In the past 12 months has the [employer], gas, oil, or water [employer] threatened to shut off services in [...] Home Address confirmed as: [address] [facility] [address] Physical address: [address] [facility], [address] Social & Family Supports: All names listed below confirmed with patient as current and correct Extended Emergency Contact Information Primary Emergency Contact: Cielo Garcia Relation: Child Secondary Emergency Contact: Sara Mcghee Relation: None Current Care Provided by: self Provides Primary Care For: no one Caregiver if needed: child(juna), adult Quality of Family relationships: helpful, involved, [...] Information: none noted Health/Prescription Coverage: Primary Insurance: [facility] Payor: [facility] / Plan: [facility] PPO / Product Type: *No Product type* / Secondary Insurance: N/A ; Prescription Coverage: Yes Preferred Pharmacy: [id number] [address] [place] Status: Patient is a : No Primary Care Provider confirmed: Aparna Jordan APRN [phone] Patient/Caregiver Goals of Treatment: dc to home Potential Needs for Transition of Care: home health care Agency Referrals: I have met with the patient to: discuss discharge planning needs. provide the [facility], Office of Care Management letter from the Chief Pharmacist pertaining to rehab referrals. provide a letter describing our affiliations within the [facility] and educate about their right to choose where referrals are sent. provide a list of Home Health Agencies / Durable Medical Equipment vendors which serve their preferred geographic area. provided patient with [facility] Star Quality Rating handout. They have requested referrals to: [facility] [address] [place] [address] Note routed to a Nursing Home Manager who will communicate referrals to facilities and [...] daughter, Cielo, will be coming in from [place] on 02/18, to stay with him , [...] Reina Greene RN CM, BSN, CMGT- Ext [phone] * Plan of Care - Binta Trinidad [...] Operative Note Patient Name: Karlos Garcia : [id number] MR#: [id number] Case Date: 02/17/2024 Surgeon: Surgeon(s) and Role: * Hayder Graham MD - Primary * Neftali Menon PA - Physician Intermediate Accountant Preoperative diagnosis: CAD Postoperative diagnosis: CAD, intraoperative [...] mL Drains: Mediastinal and Left pleural Disposition: [facility] Condition: doing well without problems Attestation: Case Date: 02/17/2024 I performed this procedure without the involvement of a resident. HAYDER GRAHAM MD 02/17/2024 * Op Note - Hayder Graham MD - 02/17/2024 8:[address] [facility] Operative Note Patient Name: Karlos Garcia : [id number] MR#: [id number] Case Date: 02/17/2024 Surgeon: Surgeons and Role: * Hayder Graham MD - Primary * Neftali Menon PA - Physician Intermediate Accountant Preoperative diagnosis: CAD Postoperative diagnosis: CAD, intraoperative [...] mL Drains: Mediastinal and Left pleural Disposition: [facility] Procedure Description: The patient was brought [...] PM EST Office Visit Cardiology at [address] [address] Neftali Ernandez MD [facility] [place] [address] Scheduled Orders Name Type Priority Associated Diagnoses [...] Aortic Valve Open W Cardiopulmonary Bypass Homogrf/Stent (46715) Yes 02/17/2024 7:28 AM EDT CAD Cabg, Artery-Vein, Two (78304) Yes 02/17/2024 7:28 AM EDT CAD Cabg, Arterial, Single (70998) Yes 02/17/2024 7:28 AM EDT CAD Endoscopy W/Video-Asst Vein [place], Cabg (43898) Yes 02/17/2024 7:28 AM EDT CAD POCT [...] ORDERABLE S [facility] [place] [address] * (ABNORMAL) Basic Metabolic Panel (non-fasting) (02/23/2024 4:24 AM EDT) Glucose 117 65 - 199 mg/dL [facility] Comment:Diabetes: >=200 mg/d L plus symptoms Blood Urea Nitrogen 18 10 - 20 mg/dL [facility] Carbon Dioxide 26 22 - 31 mmol/L [facility] Anion Gap 11 5 - 15 mmol/L [facility] Calcium 8.8 8.5 - 10.5 mg/dL [facility] Est Glomerular Filtration Rate 102 >=60 mL/min/1. 73 m?? [facility] [...] CHEMISTRY ORDERABLES [facility] [place] [place] [address] * Potassium (02/22/2024 4:30 AM EDT) Potassium [...] ORDERABLE S [facility] [place] [address] * (ABNORMAL) Basic Metabolic Panel (non-fasting) (02/21/2024 9:45 AM EDT) Glucose 123 65 - 199 mg/dL [facility] Comment:Diabetes: >=200 mg/d L plus symptoms Blood Urea Nitrogen 22(H) 10 - 20 mg/dL [facility] [...] [facility] Carbon Dioxide Not Perf 22 - 31 [facility] Comment:Add-on request. Yolanda le too old to perform test. Anion Gap Unable to Calculate 5 - 15 mmol/L [facility] Calcium 8.6 8.5 - 10.5 mg/dL [facility] Est Glomerular Filtration Rate 100 >=60 mL/min/1 .73 m?? [facility] [...] CHEMISTRY ORDERABLES [facility] [place] [place] [address] * Lactate, whole blood, send to lab ([facility]) (02/21/2024 9:45 AM EDT) [facility] Lactate WB 2.0 0.5 - 2.2 mmol/L [facility] Blood 02/21/2024 9:45 AM EDT 02/21/2024 9:52 AM EDT Narrative Resulting Agency Comment Spec In Lab Hayder Graham MD CHEMISTRY ORDERABLE S Performing Organization Address [facility] Co de Phone Number [facility] [place] [address] * (ABNORMAL) Hepatic Function Panel (02/21/2024 9:45 AM EDT) [facility] Protein, Total 5.7(L) 6.1 - 8.0 g/dL [facility] Albumin 3.3 3.2 - 5.2 g/dL [facility] Aspartate Aminotransferase 13 0 - 39 unit/L [facility] Alanine Aminotransferase 16 0 - 55 unit/L [facility] Alkaline Phosphatase 63 40 - 130 unit/L [facility] Bilirubin, Total 0.6 0.2 - 1.3 mg/dL [facility] Bilirubin, Direct 0.2 0.0 - 0.3 mg/dL [facility] Blood 02/21/2024 9:45 AM EDT 02/21/2024 9:52 AM EDT Narrative Resulting Agency Comment Spec In Lab Hayder Graham MD CHEMISTRY ORDERABLE S [facility] [place] [address] * Lipase (02/21/2024 9:45 AM EDT) Lipase 56 0 - 60 unit/L [facility] Blood 02/21/2024 9:45 AM EDT 02/21/2024 9:52 AM EDT Narrative Resulting Agency Comment Spec In Lab Hayder Graham MD CHEMISTRY ORDERABLE S [facility] [place] [address] * Amylase (02/21/2024 9:45 AM EDT) Amylase 69 28 - 100 unit/L [facility] Blood 02/21/2024 9:45 AM EDT 02/21/2024 9:52 AM EDT Narrative Resulting Agency Comment Spec In Lab Hayder Graham MD CHEMISTRY ORDERABLE S Performing Organization Address City/[facility]/ZIP Co de Phone Number [facility] [place] [address] * Potassium (02/21/2024 3:08 AM EDT) Potassium [...] ORDERABLE S [facility] [place] [address] * XR Chest PA & Lateral (Generic) (02/20/2024 10:19 AM EDT) WORKSTATION ID [id number] RAD Anatomical Region Laterality Modality Chest N/A Digital Radiogra phy Impressions 02/20/2024 1:11 PM EDT Small pleural effusions. No pneumothorax Thank you for letting us participate in the care of this patient. ??If you are a health care provider and have any questions regarding this report, please contact the number below. ??For patients who have questions please contact the health primary care nurse practitioner that requested your imaging first. ? Electronically signed by: Rogerio Cruz MD, [facility] ??([phone]), at 02/20/2024 1:11 PM Narrative 02/20/2024 1:11 PM EDT EXAMINATION: XR CHEST PA AND LATERAL (GENERIC) CLINICAL HISTORY: s/p AVR/CABGx3 TECHNIQUE: PA and lateral views of the chest COMPARISON: 02/17/2024 FINDINGS: Support devices: Interval removal of [employer] [place] [employer] catheter, endotracheal tube and mediastinal chest tubes The cardiac silhouette is stable status post median sternotomy, CABG and aortic valve replacement. There are small pleural effusions. No pneumothorax. Procedure Note Rogerio Cruz MD - 02/20/2024 EXAMINATION: XR CHEST PA AND LATERAL (GENERIC) CLINICAL HISTORY: s/p AVR/CABGx3 TECHNIQUE: PA and lateral views of the chest COMPARISON: 02/17/2024 FINDINGS: Support devices: Interval removal of [employer] [place] catheter, endotracheal tubeand mediastinal chest tubes The [...] have questions please contactthe health primary care nurse practitioner that requested your imaging first. Hayder Graham MD IMG DX ORDERABLES * Scan, Peripheral Blood (02/20/2024 4:23 AM EDT) Pathologist [facility] Plat estimate Decreased [facility] RBC Morphology Normal [facility] Blood 02/20/2024 4:23 AM EDT 02/20/2024 4:42 AM EDT Narrative Resulting Agency Comment Spec In Lab Minnie FRENCH HEMATOLOGY CECILIO ALEMAN [facility] [place] [id number] * (ABNORMAL) Differential, Automated (02/20/2024 4:23 AM EDT) [facility] Neutrophil % 81.7 % [facility] Neutrophil Absolute 10.37(H) 1.70 - 6.10 x10(3)/mc L [facility] Lymph % 7.4 % [facility] Lymphocytes Abs 0.9 0.9 - 3.2 x10(3)/mc L [facility] Monocyte % 9.7 % [facility] Monocyte Abs 1.2(H) 0.3 - 0.9 x10(3)/mc L [facility] Eos % 0.1 % [facility] Eosinophils Abs 0.0 0.0 - 0.4 x10(3)/mc L [facility] Basophil % 0.2 % [facility] Baso Absolute 0.0 0.0 - 0.1 x10(3)/mc L [facility]AL [...] Absolute 0.12(H) 0.00 - 0.04 x10(3)/mc L [facility] Blood 02/20/2024 4:23 AM EDT 02/20/2024 4:42 AM EDT Narrative Resulting Agency Comment Spec In Lab Minnie FRENCH HEMATOLOGY CECILIO ALEMAN [facility] [place] [address] * (ABNORMAL) Hemogram (02/20/2024 4:23 AM EDT) White Blood Cell 12.7(H) 4.0 - 9.5 x10(3)/ L [facility] Red Blood Cell 4.26(L) 4.58 - 5.54 x10(6)/mc L [facility] Hemoglobin 12.3(L) 13.7 - 16.5 g/dL [facility] Hematocrit 37.1(L) 40.5 - 48.5 % [facility] Mean Cell Volume 87.1 82.9 - 93.1 fL [facility] Mean Cell Hemoglobin 28.9 27.5 - 32.1 pg [facility] Mean Cell Hemoglobin Concentration 33.2 32.0 - 35.7 g/dL [facility] Platelet 88(L) 145 - 357 x10(3)/ L [facility] RDW Standard Deviation 43.5 36.0 - 45.0 fL [facility] RDW coefficient of variation 13.7 11.4 - 13.8 % [facility] Mean Platelet Volume 10.2 7.6 - 12.9 fL [facility] NRBC% auto 0.0 % [facility] NRBC Absolute 0.000 0.000 - 0.000 x10(3)/mc L [facility] Blood 02/20/2024 4:23 AM EDT 02/20/2024 4:42 AM EDT Narrative Resulting Agency Comment Spec In Lab Minnie FRENCH HEMATOLOGY CECILIO ALEMAN [facility] [place] [place] [address] * (ABNORMAL) Basic Metabolic Panel (non-fasting) (02/20/2024 4:23 AM EDT) Glucose 113 65 - 199 mg/dL [facility] Comment:Diabetes: >=200 mg/d L plus symptoms Blood Urea Nitrogen 20 10 - 20 mg/dL [facility] Comment:result rechecked-[place] Creatinine 0.71(L) 0.80 - 1.50 mg/dL [facility] [...] [facility] Carbon Dioxide 25 22 - 31 mmol/L [facility] Anion Gap 8 5 - 15 mmol/L [facility] Calcium 8.7 8.5 - 10.5 mg/dL [facility] Comment:result rechecked-[place] Est Glomerular Filtration Rate 102 >=60 mL/min/1. 73 m?? [facility] [...] S Performing Organization Address [facility] Co de Phone Number [facility] [place] [place] [address] * Potassium (02/19/2024 3:57 AM EDT) Potassium [...] S Performing Organization Address [facility]/ZIP Co de Phone Number [facility] [place] [place] [address] * POCT Glucose (02/18/2024 8:24 AM EDT) Glucose, POC 157 65 - 199 mg/dL [facility] Comment: Supplemental ranges: <140 mg/dL before meals <180 mg/dL all other times of the day Blood 02/18/2024 8:24 AM EDT 02/18/2024 8:24 AM EDT Hayder Graham MD POINT OF CARE TEST ORDERABLES Performing Organization Address City/[facility]/ZIP Co de Phone Number [facility] [place] [place] [address] * Scan, Peripheral Blood (02/18/2024 1:40 AM EDT) Plat estimate Decreased [facility] RBC Morphology Normal [facility] Blood 02/18/2024 1:40 AM EDT 02/18/2024 1:56 AM EDT Narrative Resulting Agency Comment Spec In Lab Neftali FRENCH HEMATOLOGY ORDER OLE Performing Organization Address City/[facility] Co de Phone Number [facility] [place] [address] * (ABNORMAL) Differential, Automated (02/18/2024 1:40 AM EDT) [facility] Neutrophil % 87.1 % [facility] Neutrophil Absolute 15.03(H) 1.70 - 6.10 x10(3)/mc L [facility] Lymph % 3.0 % [facility] Lymphocytes Abs 0.5(L) 0.9 - 3.2 x10(3)/mc L [facility] Monocyte % 9.1 % [facility] Monocyte Abs 1.6(H) 0.3 - 0.9 x10(3)/mc L [facility] Eos % 0.0 % [facility] Eosinophils Abs 0.0 0.0 - 0.4 x10(3)/mc L [facility] Basophil % 0.2 % [facility] Baso Absolute 0.0 0.0 - 0.1 x10(3)/mc L [facility] [...] Absolute 0.10(H) 0.00 - 0.04 x10(3)/mc L [facility] Blood 02/18/2024 1:40 AM EDT 02/18/2024 1:56 AM EDT Narrative Resulting Agency Comment Spec In Lab Neftali FRENCH HEMATOLOGY ORDER OLE [facility] [place] [place] [address] * (ABNORMAL) Hemogram (02/18/2024 1:40 AM EDT) White Blood Cell 17.2(H) 4.0 - 9.5 x10(3)/mc L [facility] Red Blood Cell 4.71 4.58 - 5.54 x10(6)/mc L [facility] Hemoglobin 13.7 13.7 - 16.5 g/dL [facility] Hematocrit 39.2(L) 40.5 - 48.5 % [facility] Mean Cell Volume 83.2 82.9 - 93.1 fL [facility] Mean Cell Hemoglobin 29.1 27.5 - 32.1 pg [facility] Mean Cell Hemoglobin Concentration 34.9 32.0 - 35.7 g/dL [facility] Platelet 147 145 - 357 x10(3)/mc L [facility] RDW Standard Deviation 39.9 36.0 - 45.0 [facility] RDW coefficient of variation 13.2 11.4 - 13.8 % [facility] Mean Platelet Volume 9.9 7.6 - 12.9 fL [facility] NRBC% auto 0.0 % [facility] NRBC Absolute 0.000 0.000 - 0.000 x10(3)/mc L [facility] Blood 02/18/2024 1:40 AM EDT 02/18/2024 1:56 AM EDT Narrative Resulting Agency Comment Spec In Lab Neftali FRENCH HEMATOLOGY ORDER OLE [facility] [place] [address] * (ABNORMAL) Basic Metabolic Panel (non-fasting) (02/18/2024 1:40 AM EDT) Glucose 176 65 - 199 mg/dL [facility] Comment:Diabetes: >=200 mg/d L plus symptoms Blood Urea Nitrogen 10 10 - 20 mg/dL [facility] [...] [facility] Carbon Dioxide 20(L) 22 - 31 mmol/L [facility] Anion Gap 9 5 - 15 mmol/L [facility] Calcium 7.6(L) 8.5 - 10.5 mg/dL [facility] Est Glomerular Filtration Rate 105 >=60 mL/min/1. 73 m?? [facility] [...] ORDERABLE S [facility] [place] [place] [address] * (ABNORMAL) Troponin (02/18/2024 1:40 AM EDT) Pathologist [facility] [place] Troponin-T, High Sensitivity 342(H) <=22 ng/L [facility] Test Catalog Reference: Fourth [place] Definition of Myocardial Infarction. Journal of the [place] [employer] 2018;72:6216-7473 Blood 02/18/2024 1:40 AM EDT 02/18/2024 1:56 AM EDT Narrative Resulting Agency Comment Spec In Lab Hayder Graham MD CHEMISTRY ORDERABLE S Performing Organization Address [facility] Co de Phone Number [facility] [place] [address] * POCT Glucose (02/17/2024 8:13 PM EDT) Glucose, POC 142 65 - 199 mg/dL [facility] Comment: Supplemental ranges: <140 mg/dL before meals <180 mg/dL all other times of the day Blood 02/17/2024 8:13 PM EDT 02/17/2024 8:13 PM EDT Hayder Graham MD POINT OF CARE TEST ORDERABLES Performing Organization Address [facility] de Phone Number [facility] [place] [place] [address] * POCT Glucose (02/17/2024 5:42 PM EDT) Glucose, POC 160 65 - 199 mg/dL [facility] Comment: Supplemental ranges: <140 mg/dL before meals <180 mg/dL all other times of the day Blood 02/17/2024 5:42 PM EDT 02/17/2024 5:42 PM EDT Hayder Graham MD POINT OF CARE TEST ORDERABLES Performing Organization Address [facility] Co de Phone Number [facility] [place] [place] [address] * Hemoglobin (02/17/2024 5:42 PM EDT) Hemoglobin 13.7 13.7 - 16.5 g/dL [facility] Blood 02/17/2024 5:42 PM EDT 02/17/2024 6:10 PM EDT Narrative Resulting Agency Comment Spec In Lab Hayder Graham MD HEMATOLOGY ORDERABL ES Performing Organization Address [facility]/ZIP Co de Phone Number [facility] [place] [address] * Potassium (02/17/2024 5:42 PM EDT) Pathologist [facility] [place] Potassium 4.3 3.5 - 5.0 mmol/L [facility] [...] S Performing Organization Address [facility] Co de Phone Number [facility] [place] [address] * (ABNORMAL) BLOOD GAS 2 ARTERIAL (02/17/2024 4:18 PM EDT) pH, Arterial 7.34(L) 7.35 - 7.45 [facility] PCO2, Arterial 40 35 - 45 mmHg [facility] PO2, Arterial 78(L) 85 - 104 mmHg [facility] Bicarbonate, Arterial 20.8 20.0 - 26.0 mmol/L [facility] Base Excess, Arterial -5.1(L) -3.0 - 3.0 mmol/L [facility] Hgb Blood Gas 14.6 13.7 - 16.5 g/dL [facility] Oxyhemoglobin, Arterial 93.0(L) 94.0 - 97.0 % [facility] Carboxyhemoglob in, Arterial 0.3 % [facility] Comment: Nonsmokers: 0.5-1.5% COHB Smokers: Variable, but usually less than 10% Toxic: 20-30% COHB Lethal: Greater than 60% COHB Methemoglobin, Arterial 0.8 <=1.5 % [facility] Na Whole Blood [...] [facility] FIO2 Art 40 % [facility] PF Ratio Art 195 [facility] Blood 02/17/2024 4:18 PM EDT 02/17/2024 4:18 PM EDT Hayder Graham MD POINT OF CARE TEST ORDERABLES Performing Organization Address City/State/[facility] Co de Phone Number [facility] [place] [address] * XR Chest One View (02/17/2024 1:44 PM EDT) Deolan WORKSTATION ID [id number] RAD Anatomical Region Laterality Modality Chest N/A Digital Radiogra phy Impressions 02/17/2024 2:12 PM EDT 1. ??No definite pleural fluid collection or pneumothorax. 2. ??Right IJ [employer] catheter tip terminates in a descending branch [...] questions please contact the health primary care nurse practitioner that requested your imaging first. ? Electronically signed by: Denzel Hankins MD, [facility] ??([phone]), at 02/17/2024 2:12 PM Narrative 02/17/2024 2:12 PM EDT EXAMINATION: XR CHEST ONE VIEW CLINICAL HISTORY: s/p avr/cabg eval effusions TECHNIQUE: 1 view of the chest COMPARISON: Chest x-ray 01/09/2024, chest CT 02/03/2024 FINDINGS: ET tube tip terminates 5.2 cm above the carlos. Right IJ [employer] catheter tip terminates in a descending branch [...] 5.2 cm above the carlos. Right IJ [employer] [place]anzcatheter tip terminates in a descending branch of [...] fluid collection or pneumothorax. 2. Right IJ [employer] catheter tip terminates in a descending branch ofthe right pulmonary artery. Suggest catheter retraction. 3. Additional support lines and tubes as above. Thank you for letting us participate in the care of this patient. If youare a health care provider and have any questions regarding this report,please contact the number below. For patients who have questions please contactthe health primary care nurse practitioner that requested your imaging first. Hayder Graham MD IMG DX ORDERABLES * (ABNORMAL) BLOOD GAS 2 ARTERIAL (02/17/2024 1:31 PM EDT) pH, Arterial 7.35 7.35 - 7.45 [facility] PCO2, Arterial 39 35 - 45 mmHg [facility] PO2, Arterial 320(H) 85 - 104 mmHg [facility] Bicarbonate, Arterial 21.4 20.0 - 26.0 mmol/L [facility] Base Excess, Arterial -4.2(L) -3.0 - 3.0 mmol/L [facility] Hgb Blood Gas 14.1 13.7 - 16.5 g/dL [facility] Oxyhemoglobin, Arterial 97.9(H) 94.0 - 97.0 % [facility] Carboxyhemoglob in, Arterial 0.3 % [facility] Comment: Nonsmokers: 0.5-1.5% COHB Smokers: Variable, but usually less than 10% Toxic: 20-30% COHB Lethal: Greater than 60% COHB Methemoglobin, Arterial 0.7 <=1.5 % [facility] Na Whole Blood [...] MEDICAL [facility]ENTER [facility] FIO2 Art 100 % [facility] PF Ratio Art 320 [facility] Blood 02/17/2024 1:31 PM EDT 02/17/2024 1:31 PM EDT Hayder Graham MD POINT OF CARE TEST ORDERABLES [facility] [place] [address] * (ABNORMAL) Coox2 (02/17/2024 1:21 PM EDT) pO2, Coox 44 mmHg [facility] Hgb Blood Gas 13.1(L) 13.7 - 16.5 g/dL [facility] Oxyhemoglobin, Coox 76.4 % [facility] Carboxyhemoglo bin, Coox 0.3 % [facility] Comment: Nonsmokers: 0.5-1.5% COHB Smokers: Variable, but usually less than 10% Toxic: 20-30% COHB Lethal: Greater than 60% COHB Methemoglobin, Coox 0.8 <=1.5 % [facility] Source Coox Mixed Venous [facility] Blood 02/17/2024 1:21 PM EDT 02/17/2024 1:21 PM EDT Hayder Graham MD POINT OF CARE TEST ORDERABLES [facility] [place] [address] * (ABNORMAL) BLOOD GAS 2 ARTERIAL (02/17/2024 12:14 PM EDT) pH, Arterial 7.39 7.35 - 7.45 [facility] PCO2, Arterial 40 35 - 45 mmHg [facility] PO2, Arterial 338(H) 85 - 104 mmHg [facility] Bicarbonate, Arterial 23.7 20.0 - 26.0 mmol/L [facility] Base Excess, Arterial -1.3 -3.0 - 3.0 mmol/L [facility] Hgb Blood Gas 11.0(L) 13.7 - 16.5 g/dL [facility] Oxyhemoglobin, Arterial 98.8(H) 94.0 - 97.0 % [facility] Carboxyhemoglob in, Arterial 0.3 % [facility] Comment: Nonsmokers: 0.5-1.5% COHB Smokers: Variable, but usually less than 10% Toxic: 20-30% COHB Lethal: Greater than 60% COHB Methemoglobin, Arterial 0.3 <=1.5 % [facility] Na Whole Blood [...] ORDERABLES Performing Organization Address [facility] Co de Phone Number [facility] [place] [address] * (ABNORMAL) Fibrinogen (02/17/2024 12:10 PM EDT) [...] S Performing Organization Address [facility] Co de Phone Number [facility] [place] [address] * (ABNORMAL) Thrombin time (02/17/2024 12:10 PM [...] S Performing Organization Address [facility] Co de Phone Number [facility] [place] [address] * APTT (02/17/2024 12:10 PM EDT) Partial Thromboplastin Time 33 25 - 37 sec [facility] [...] S Performing Organization Address [facility]/ZIP Co de Phone Number [facility] [address] * (ABNORMAL) Prothrombin Time (02/17/2024 12:10 PM EDT) Prothrombin Time 16.7(H) 9.4 - 12.5 sec [facility] Comment: OR Result called by ?? LOMARL OR Results read back by: ? alondra pagan at 2024-02-17 12:41:48 International Normalization Ratio 1.5 [facility] Comment: OR [...] ORDERABLE S [facility] [address] * (ABNORMAL) Hemogram (02/17/2024 12:10 PM EDT) White Blood Cell 11.1(H) 4.0 - 9.5 x10(3)/mc L [facility] Red Blood Cell 3.50(L) 4.58 - 5.54 x10(6)/mc L [facility] Hemoglobin 10.4(L) 13.7 - 16.5 g/dL [facility] Hematocrit 30.2(L) 40.5 - 48.5 % [facility] Comment: This result has been called to ALONDRA PAGAN by Eddie López on 02 17 2024 at 1226, and has been read back. Mean Cell Volume 86.3 82.9 - 93.1 fL [facility] Mean Cell Hemoglobin 29.7 27.5 - 32.1 pg [facility] Mean Cell Hemoglobin Concentration 34.4 32.0 - 35.7 g/dL [facility] Platelet 118(L) 145 - 357 x10(3)/mc L [facility] RDW Standard Deviation 40.2 36.0 - 45.0 fL [facility] RDW coefficient of variation 12.8 11.4 - 13.8 % [facility] Mean Platelet Volume 9.5 7.6 - 12.9 fL [facility] NRBC% auto 0.0 % [facility] NRBC Absolute 0.000 0.000 - 0.000 x10(3)/mc L [facility] Blood 02/17/2024 12:1 0 PM EDT 02/17/2024 12:19 PM EDT Narrative Resulting Agency Comment Spec In Lab Tara York MD HEMATOLOGY ORDERABLE S [facility] [place] [address] * (ABNORMAL) BLOOD GAS 2 ARTERIAL (02/17/2024 11:43 AM EDT) pH, Arterial 7.38 7.35 - 7.45 [facility] PCO2, Arterial 40 35 - 45 mmHg [facility] PO2, Arterial 304(H) 85 - 104 mmHg [facility] Bicarbonate, Arterial 23.2 20.0 - 26.0 mmol/L [facility] Base Excess, Arterial -1.9 -3.0 - 3.0 mmol/L [facility] Hgb Blood Gas 11.1(L) 13.7 - 16.5 g/dL [facility] Oxyhemoglobin, Arterial 98.6(H) 94.0 - 97.0 % [facility] Carboxyhemoglob in, Arterial 0.3 % [facility] Comment: Nonsmokers: 0.5-1.5% COHB Smokers: Variable, but usually less than 10% Toxic: 20-30% COHB Lethal: Greater than 60% COHB Methemoglobin, Arterial 0.3 <=1.5 % [facility] Na Whole Blood 133(L) 135 - 145 mmol/L [facility] K Whole Blood 6.2(Critic al) 3.5 - 5.0 mmol/L [facility] Comment: Noted by instrument adjuster. Please note: Patients with WBC >100,000 may [...] TEST ORDERABLES [facility] [place] [address] * (ABNORMAL) BLOOD GAS 2 ARTERIAL (02/17/2024 11:08 AM EDT) pH, Arterial 7.38 7.35 - 7.45 [facility] PCO2, Arterial 38 35 - 45 mmHg [facility] PO2, Arterial 334(H) 85 - 104 mmHg [facility] Bicarbonate, Arterial 22.0 20.0 - 26.0 mmol/L [facility] Base Excess, Arterial -3.2(L) -3.0 - 3.0 mmol/L [facility] Hgb Blood Gas 10.8(L) 13.7 - 16.5 g/dL [facility] Oxyhemoglobin, Arterial 98.7(H) 94.0 - 97.0 % [facility] Carboxyhemoglob in, Arterial 0.3 % [facility] Comment: Nonsmokers: 0.5-1.5% COHB Smokers: Variable, but usually less than 10% Toxic: 20-30% COHB Lethal: Greater than 60% COHB Methemoglobin, Arterial 0.3 <=1.5 % [facility] Na Whole Blood 131(L) 135 - 145 mmol/L [facility] K Whole Blood 6.4(Critic al) 3.5 - 5.0 mmol/L [facility] Comment: Noted by instrument adjuster. Please note: Patients with WBC >100,000 may [...] ORDERABLES Performing Organization Address [facility]/ZIP Co de Phone Number [facility] [place] [address] * (ABNORMAL) Hemoglobin and Hematocrit, blood (02/17/2024 11:04 AM EDT) Pathologist [facility] [place] Hemoglobin 9.6(L) 13.7 - 16.5 g/dL [facility] [...] MD HEMATOLOGY ORDERABL ES Performing Organization Address City/[facility]/ZIP Co de Phone Number [facility] [place] [place] [address] * (ABNORMAL) Platelet count (02/17/2024 11:04 AM EDT) Pathologist [facility] [place] Platelet 106(L) 145 - 357 x10(3)/mc L [facility] Immature Plt % 1.6 0.0 - 7.4 % [facility] Comment: Limitation of the Immature Platelet Fraction (IPF)-May be less reliable when the platelet count is less than 41v054/uL due to statistical imprecision. The IPF value [...] in a decreased state of production. References: [employer] The Clinical Value of the Immature Platelet Fraction (IPF) in Cell Recovery Document Number [id number] 03/2011 [employer] The Role of the Immature Platelet Fraction (IPF) in the Differential Diagnosis of Thrombocytopenia, Document [id number] V002/15/14 P014 Blood 02/17/2024 11:0 4 AM EDT 02/17/2024 11:12 AM EDT Narrative Resulting Agency Comment Spec In Lab Hayder Graham MD HEMATOLOGY ORDERABL ES Performing Organization Address City/State/[facility] Co de Phone Number [facility] [place] [address] * (ABNORMAL) Fibrinogen (02/17/2024 11:04 AM EDT) [...] Lab Hayder Graham MD HEMATOLOGY ORDERABL ES [facility] [place] [address] * (ABNORMAL) BLOOD GAS 2 ARTERIAL (02/17/2024 10:41 AM EDT) pH, Arterial 7.37 7.35 - 7.45 [facility] PCO2, Arterial 44 35 - 45 mmHg [facility] PO2, Arterial 335(H) 85 - 104 mmHg [facility] Bicarbonate, Arterial 24.9 20.0 - 26.0 mmol/L [facility] Base Excess, Arterial -0.4 -3.0 - 3.0 mmol/L [facility] Hgb Blood Gas 11.5(L) 13.7 - 16.5 g/dL [facility] Oxyhemoglobin, Arterial 98.9(H) 94.0 - 97.0 % [facility] Carboxyhemoglob in, Arterial 0.1 % [facility] Comment: Nonsmokers: 0.5-1.5% COHB Smokers: Variable, but usually less than 10% Toxic: 20-30% COHB Lethal: Greater than 60% COHB Methemoglobin, Arterial 0.3 <=1.5 % [facility] Na Whole Blood [...] TEST ORDERABLES [facility] [place] [address] * (ABNORMAL) BLOOD GAS 2 ARTERIAL (02/17/2024 10:06 AM EDT) pH, Arterial 7.38 7.35 - 7.45 [facility] PCO2, Arterial 42 35 - 45 mmHg [facility] PO2, Arterial 329(H) 85 - 104 mmHg [facility] Bicarbonate, Arterial 24.7 20.0 - 26.0 mmol/L [facility] Base Excess, Arterial -0.3 -3.0 - 3.0 mmol/L [facility] Hgb Blood Gas 11.0(L) 13.7 - 16.5 g/dL [facility] Oxyhemoglobin, Arterial 99.0(H) 94.0 - 97.0 % [facility] Carboxyhemoglob in, Arterial 0.3 % [facility] Comment: Nonsmokers: 0.5-1.5% COHB Smokers: Variable, but usually less than 10% Toxic: 20-30% COHB Lethal: Greater than 60% COHB Methemoglobin, Arterial 0.3 <=1.5 % [facility] Na Whole Blood [...] TEST ORDERABLES [facility] [place] [address] * Surgical Pathology Report (02/17/2024 10:01 AM EDT) Final Diagnosis [id number] ? Location: [facility]; [facility]; The signing pathologist has (i) examined the relevant preparation(s) for the specimen(s) and (ii) rendered or confirmed the diagnosis(es). . ?Surgical Pathology DIAGNOSIS Aortic valve leaflets, excision: Valve leaflets with myxoid degeneration, nodular fibrosis and dystrophic calcifications. Electronically signed by: ?Lindsay FERNANDEZ, Livier Gonzalez Verified: ??02/24/2024 13:49 ??Pathologist Performed at: ??-[facility] Dept. of Pathology, [place] [address] Chief Pharmacist: Job Brewer MD, FCAP, ??CLIA Certificate: [id number] SPECIMEN(S) SUBMITTED A - Aortic Valve Leaflets, [...] Sections Processing Blocks submitted for decalcification: A1. Salesperson Yard Goods sections in 1 cassette labeled A1. ??ajw 02/24/2024 1:49 PM EDT [facility] AORTIC STRUCTURE / Unknown 02/17/2024 10:01 AM EDT 02/17/2024 10:01 AM EDT Hayder Graham MD PATHOLOGY/CYTOLOGY ORDERABLES Performing Organization Address City/[facility]/ZIP Co de Phone Number [facility] [place] [address] * Specimen to Pathology (02/17/2024 10:01 AM EDT) AP Specimen 02/17/2024 10:0 1 AM EDT 02/17/2024 10:01 AM EDT Narrative [facility] - 02/17/2024 10:01 AM EDT Specimen requisition ordered. ??Separate Pathology report to follow Hayder Graham MD PATHOLOGY/CYTOLOGY ORDERABLES Performing Organization Address City/[facility]/ZIP Co de Phone Number [facility] [place] [place] [address] * (ABNORMAL) BLOOD GAS 2 ARTERIAL (02/17/2024 9:35 AM EDT) pH, Arterial 7.33(L) 7.35 - 7.45 [facility] PCO2, Arterial 35 35 - 45 mmHg [facility] PO2, Arterial 318(H) 85 - 104 mmHg [facility] Bicarbonate, Arterial 17.9(L) 20.0 - 26.0 mmol/L [facility] Base Excess, Arterial -8.0(L) -3.0 - 3.0 mmol/L [facility] Hgb Blood Gas 11.0(L) 13.7 - 16.5 g/dL [facility] Oxyhemoglobin, Arterial 98.8(H) 94.0 - 97.0 % [facility] Carboxyhemoglob in, Arterial 0.3 % [facility] Comment: Nonsmokers: 0.5-1.5% COHB Smokers: Variable, but usually less than 10% Toxic: 20-30% COHB Lethal: Greater than 60% COHB Methemoglobin, Arterial 0.3 <=1.5 % [facility] Na Whole Blood [...] TEST ORDERABLES [facility] [place] [place] [address] * (ABNORMAL) BLOOD GAS 2 VENOUS (02/17/2024 9:34 AM EDT) pH, Venous 7.22(Criti marquez) 7.32 - 7.42 [facility] Comment:Noted by instrument adjuster. PCO2, Venous 43 41 - 51 mmHg [facility] Comment:Noted by instrument adjuster. PO2, Venous 57(H) 25 - 40 mmHg [facility] Comment:Noted by instrument adjuster. Bicarbonate, Venous 17.1 mmol/L [facility] Comment:Noted by instrument adjuster. Base Excess, Venous -10.6 mmol/L [facility] Comment:Noted by instrument adjuster. Hgb Blood Gas 11.2(L) 13.7 - 16.5 g/dL [facility] Comment:Noted by instrument adjuster. Oxyhemoglobin, Venous 86.5 % [facility] Comment:Noted by instrument adjuster. Carboxyhemoglob in, Venous 0.3 % [facility] Comment: Noted by instrument adjuster. Nonsmokers: 0.5-1.5% COHB Smokers: Variable, but usually less than 10% Toxic: 20-30% COHB Lethal: Greater than 60% COHB Methemoglobin, Venous 0.0 <=1.5 % [facility] Comment:Noted by instrument adjuster. Na Whole Blood 156(H) 135 - 145 mmol/L [facility] Comment:Noted by instrument adjuster. K Whole Blood 5.5(H) 3.5 - 5.0 mmol/L [facility] Comment: Noted by instrument adjuster. Please note: Patients with WBC >100,000 may have falsely elevated Potassium levels. Contact the Clinical Chemistry Laboratory if there are any questions. ICa Whole Blood 1.03(L) 1.15 - 1.33 mmol/L [facility] Comment: Noted by instrument adjuster. Note: ??Total bilirubin higher than 20 mg/dL may lead to falsely low ionized calcium. CL Whole Blood 100 98 - 107 mmol/L [facility] Comment:Noted by instrument adjuster. Gluc Whole Bld 132 65 - 199 mg/dL [facility] Comment: Noted by instrument adjuster. Diabetes: >=200 mg/dL plus symptoms Lactate WB 1.0 0.5 - 2.2 mmol/L [facility] Comment:Noted by instrument adjuster. Blood Gas Source Venous [facility] Blood 02/17/2024 9:34 AM EDT 02/17/2024 9:34 AM EDT Hayder Graham MD POINT OF CARE TEST ORDERABLES [facility] [place] [place] [address] * (ABNORMAL) BLOOD GAS 2 ARTERIAL (02/17/2024 8:07 AM EDT) pH, Arterial 7.43 7.35 - 7.45 [facility] PCO2, Arterial 34(L) 35 - 45 mmHg [facility] PO2, Arterial 581(H) 85 - 104 mmHg [facility] Bicarbonate, Arterial 21.7 20.0 - 26.0 mmol/L [facility] Base Excess, Arterial -2.6 -3.0 - 3.0 mmol/L [facility] Hgb Blood Gas 14.5 13.7 - 16.5 g/dL [facility] Oxyhemoglobin, Arterial 99.0(H) 94.0 - 97.0 % [facility] Carboxyhemoglob in, Arterial 0.4 % [facility] Comment: Nonsmokers: 0.5-1.5% COHB Smokers: Variable, but usually less than 10% Toxic: 20-30% COHB Lethal: Greater than 60% COHB Methemoglobin, Arterial 0.3 <=1.5 % [facility] Na Whole Blood [...] ORDERABLES Performing Organization Address [facility] Co de Phone Number [facility] [place] [address] * POCT Glucose (02/17/2024 6:38 AM EDT) Glucose, POC 98 65 - 199 mg/dL [facility] Comment: Supplemental ranges: <140 mg/dL before meals <180 mg/dL all other times of the day Blood 02/17/2024 6:38 AM EDT 02/17/2024 6:38 AM EDT Hayder Graham MD POINT OF CARE TEST ORDERABLES Performing Organization Address [facility] Co de Phone Number [facility] [place] [address] * Transesophageal Echo/OR (02/17/2024 6:33 AM EDT) [...] ? 15-16 ? diffuse Reading Physician ? aTra York MD ?? 02/17/2024, 4: 08 PM [...] transes[facility] and post-operative [facility] of [...] Routine documented in this encounter Care Teams Lobbyist Relationship Specialty Start Date End Date Aparna Jordan APRN PCP - General Family Medicine 10/21/23 05/26/24 documented as of this encounter
--- OUTSIDE RECORDS SUMMARY | 2024-06-10 08:39 | XMS_ITS | Encounter Summary ---
Author Organization [facility]ly [facility] [place] [address] Care Team Providers Care Silk Screener Name Role Phone Vanessa Christian MAURI Primary Care Provider [phone] Reason for Visit * Auth/Cert (Routine) Specialty [...] MD [facility] [place] [address] [facility] Referral ID Status Reason Start Date Expiration Date Visits Re quested Visits Authorized [id number] 1 1 Encounter Details Date Type Department Care Team (Latest Contact Info) Description 02/03/2024 8:06 AM EDT - 02/03/2024 2:54 PM EDT Hospital [place] [address] Rima Dickinson MD [facility] [place] [place] [address] Screening for cardiovascular condition; Aortic valve stenosis, [...] lbs Follow-up Visits Follow up with your bioinformatics assistant in 2-4 weeks Access Site 'Black and Blue' and tenderness is expected during the first week Call if you noted a mass (lump) greater than the size of a ellis Call Office with any Questions and if you have any of the following Clarence Lane M.D Interventional Appliance Repair Technician Weir Fisherman #: [phone] * Attachments The following attachments cannot be sent through Care Everywhere. * CAD (Coronary Artery Disease): General Info (Malawian) * Coronary Angiogram: Post-op (Malawian) documented in this encounter Medications at Time [...] Lane MD - 02/03/2024 11:48 AM EDT [facility] Interventional Cardiology Adult Pre-Procedure H&P Update: Cardiac Catheterization Karlos Anthony [id number] 1960 Chief Complaint: Aortic stenosis HPI: Mr. [...] is inthe chart Clarence Lane MD Interventional Appliance Repair Technician 02/03/24 11:48 AM documented in this encounter Miscellaneous Notes * Brief Op Note - Clarence Lane MD - 02/03/2024 12:51 PM EDT Preliminary Cardiac Catheterization Procedure Note: Patient Name: Karlos Anthony : [id number] MR#: [id number] Case Date: 02/03/2024 Weir Fisherman: Surgeon(s) and Role: * Saira Lua MD [...] PM EST Office Visit Cardiology at [address] [address] Neftali Ernandez MD [facility] [place] [address] Scheduled Orders Name Type Priority Associated Diagnoses [...] Other Narrative 02/12/2024 3:47 PM EDT ?[facility] ? Cardiac Catheterization/Intervention Report ? Patient Name: Patenaude, Karlos ? Procedure Date: 02/03/2024 ? A #: [id number] ? Primary Physician: Saira Lua ? Case #: [id number] ? File Name: [id number] ? Catheterization Order Number: [id number] ? [facility] ? Final Report [place], [place] ? Patient Name: ? Karlos Patenaude ? ID#: ?[id number] ? : ?1960 ? Procedure Date: ? [...] Note Saira Lua MD - 02/12/2024 [facility] Cardiac Catheterization/Intervention Report Patient Name: Karlos Anthony Procedure Date: 02/03/2024 A #: [id number] Primary Physician: Saira Lua Case #: [id number] File Name: [id number] Catheterization Order Number: [id number] [facility] FinalReport [place], [place] Patient Name: Karlos Anthony ID#:[id number] :1960 Procedure Date: February 03, 2024 Case [...] as ASA Class III. The [facility] clinical frailty scale is 3: Managing [...] (Bezet) 372 ms MUSE SYSTEM Calculated P [place] 59 degrees MUSE SYSTEM Calculated R [place] 34 degrees MUSE SYSTEM Calculated T [place] 63 degrees MUSE SYSTEM INTERPRETATION Sinus bradycardia [...] MD) documented in this encounter Care Teams Silk Screener Relationship Specialty Start Date End Date Vanessa Christian APRN PCP - General Family Medicine 10/21/23 05/26/24 documented as of this encounter
--- OUTSIDE RECORDS SUMMARY | 2024-06-10 08:39 | XMS_ITS | Encounter Summary ---
Author Organization [facility] [place] [address] Care Team Providers Care Customer Resource Specialist Name Role Phone Victor M Lafleur MD Primary Care Provider [phone] Encounter Details Date Type Department Care Team (Late st Contact Info) Description 09/26/2023 Abstract Cardiology at [address] [address] Karen Billy, RN Nonrheumatic aortic [...] 3:00 PM EST Office Visit Cardiology at [address] [place] [address] Neftali Ernandez MD [facility] [place] [address] documented as of this encounter Visit Diagnoses Diagnosis Nonrheumatic aortic valve stenosis Aortic valve disorders Nevus of face Benign neoplasm of skin of other and unspecified parts of face documented in this encounter Care Teams Customer Resource Specialist Relationship Specialty Start Date End Date Victor M Lafleur MD PCP - General 10/02/13 10/20/23 documented as of this encounter
--- OUTSIDE RECORDS SUMMARY | 2024-06-12 08:26 | XMS_ITS | Encounter Summary ---
Author Organization [facility] Address [facility] [place] [address] Care Team Providers Care Room Maid Name Role Phone Vanessa Christian Lane DOTSON Primary Care Provider [phone] Reason for Visit * Reason Comments Coronary Artery Disease Aortic Stenosis Encounter Details Date Type Department Care Team (Latest Contact Info) Description 05/27/2024 11:00 AM EDT Office Visit Cardiology at [address] [place] [phone] Neftali Ernandez MD [facility] [place] [address] ASCVD (arteriosclerotic cardiovascular disease); Nonrheumatic aortic valve stenosis Social History Tobacco Use Types Packs/Day Years Used Date Smoking Tobacco: Former Cigarettes Smokeless Tobacco: Never Comments:Quit 15 + years ago Alcohol Use Standard Drinks/Week Comments Yes 0 (1 standard drink = 0.6 oz pur e alcohol) rare [facility] Utilities Answer Date Recorded In the past 12 months has e [employer], gas, oil, or water [employer] threatened to shut off services in your [...] PM EST Office Visit Cardiology at [address] [address] Neftali Ernandez MD [facility] [place] [address] documented as of this encounter Visit Diagnoses Diagnosis ASCVD (arteriosclerotic cardiovascular disease) Unspecified cardiovascular disease Nonrheumatic aortic valve stenosis Aortic valve disorders documented in this encounter Care Teams Room Maid Relationship Specialty Start Date End Date Vanessa Christian APRN [address] [place] [address] PCP - General Family Medicine 05/27/24 documented as of this encounter
--- OUTSIDE RECORDS SUMMARY | 2024-06-12 08:26 | XMS_ITS | Encounter Summary ---
Author Organization [facility] Address [facility] [place] [address] Care Team Providers Care Compressor Technician Name Role Phone Vanessa Christian MAURI Primary Care Provider [phone] Encounter Details Date Type Department Care Team (Latest Contact Info) Description 03/12/2024 Travel Social History Tobacco Use Types Packs/Day Years Used Date Smoking Tobacco: Former Cigarettes Smokeless Tobacco: Never Comments:Quit 15 + years ago Alcohol Use Standard Drinks/Week Comments Yes 0 (1 standard drink = 0.6 oz pur e alcohol) rare [facility] Utilities Answer Date Recorded In the [...] 3:00 PM EST Office Visit Cardiology at [address] [phone] Neftali Ernandez MD [facility] [place] [address] documented as of this encounter Visit Diagnoses Not on filedocumented in this encounter Care Teams Compressor Technician Relationship Specialty Start Date End Date Vanessa Christian APRN PCP - General Family Medicine 10/21/23 05/26/24 documented as of this encounter
--- OUTSIDE RECORDS SUMMARY | 2024-06-12 08:26 | XMS_ITS | Referral Summary ---
Author Organization [facility] Address [address] [place] [address] Care Team Providers Care Steel Welder Name Role Phone Filidayna Vanessa Sherman NP Primary Care Provider [phone] Social History Tobacco Use Types Packs/Day Years Used Date Smoking Tobacco: Never Assessed Sex and Gender Information Value Date Recorded Sex Assigned at Not on file Gender Identity Not on file Sexual Orientation Not on file Plan of Treatment Not on file Care Teams Steel Welder Relationship Specialty Start Date End Date Vanessa Christian NP [address] [place] [address] PCP - General Family Medicine - Primary Care 10/07/23
--- OUTSIDE RECORDS SUMMARY | 2024-06-12 08:26 | XMS_ITS | Clinical Summary ---
Author Organization Formerly [facility] Address [facility] [place] [address] Care Team Providers Care Director Technical Name Role Phone Vanessa Christian Lane DOTSON Primary Care Provider [phone] Allergies No known active allergies Medications Medication [...] of face 09/26/2023 05/27/2024 Overview (09/26/2023): Right spiritism Chest pressure 08/14/2023 10/21/2023 SILVA (dyspnea on exertion) 08/14/2023 HLD (hyperlipidemia) 08/14/2023 024 Encounters Date Type Department Care Team Description 05/27/2024 11:00 AM EDT Office Visit Cardiology at [address] [place] [phone] Neftali Ernandez MD ASCVD (arteriosclerotic cardiovascular disease); Nonrheumatic aortic valve stenosis 05/27/2024 Travel 05/20/2024 Travel 03/12/2024 2:40 PM EDT Office Visit Cardiac [place] [facility] [place] [address] Zak Farmer MD Coronary artery disease, unspecified vessel or lesion type, unspecified whether angina present, unspecified whether [place]imi[place] or transplanted heart 03/12/2024 1:30 PM EDT - 03/12/2024 11:59 PM EDT Hospital Encounter XRay at [address] [place] [address] Coronary artery disease, unspecified vessel or lesion type, unspecified whether angina present, unspecified whether [place] or transplanted heart Discharge Disposition: Home 03/12/2024 [...] the past 12 months has th e [employer], gas, oil, or water [employer] threatened to shut off services in your [...] PM EST Office Visit Cardiology at [address] [place] [address] Neftali Ernandez MD [facility] [place] [address] Health Maintenance Due Date Last Done Comments [...] series) 06/07/2024 Medical Devices Implanted Type Area Ferry Pilot Device Identifier Shelf Expiration Date Model / Serial / Lot Cable,Cut,Edg ,Blnt,Ss,3tpr ([id number]) - [id number] Implanted:Qty : 1 on 02/17/2024 by Zak Farmer MD at [facility] IMPLANTS Midline: Chest [employer] - [id number] 09/02/2028 [id number] / / [id number] Valve Coronary Aortic 23mm Tissue Trnscath [employer] Inspiris ([id number]) ([employer]ore[employer]) - [id number] Implanted:Qty : 1 on 02/17/2024 by Zak Farmer MD at [facility] IMPLANTS Heart [employer] - TSAI LI 09/15/2027 [id number] / [id number] / Procedures Procedure Name Priority Date/Time Associated Diagnosis Comments EKG 12-LEAD Routine 05/27/2024 11:24 AM EDT EKG 12-LEAD Routine 03/12/2024 2:35 PM EDT Coronary artery disease, unspecified vessel or lesion type, unspecified whether angina present, unspecified whether [place]imi[place] or transplanted heart XR CHEST PA AND LATERAL Routine 03/12/2024 1:42 PM EDT Coronary artery disease, unspecified vessel or lesion type, unspecified whether angina present, unspecified whether [place] or transplanted heart from Last 3 Months [...] (Bezet) 367 ms MUSE SYSTEM Calculated P [place] 12 degrees MUSE SYSTEM Calculated R [place] 27 degrees MUSE SYSTEM Calculated T [place] 62 degrees MUSE SYSTEM INTERPRETATION Sinus bradycardia with 1st degree A-V block Otherwise normal ECG When compared with ECG of 12-MAR-2024 14:35, T wave inversion no longer evident in Anterior leads Confirmed by MD Ernandez Daniel ([id number]) on 06/01/2024 8:36:17 AM MUSE SYSTEM 05/27/2024 11:2 4 AM EDT 06/01/2024 8:36 AM EDT Unknown ECG ORDERABLES MUSE SYSTEM * XR Chest PA & Lateral (Generic) (03/12/2024 1:42 PM EDT) WORKSTATION ID [id number] [facility] Anatomical Region Laterality Modality Chest N/A [...] who have questions please contact the health laboratory animal care veterinarian that requested your imaging first. ? Narrative 03/13/2024 8:28 AM EDT EXAMINATION: XR CHEST PA AND LATERAL (GENERIC) CLINICAL HISTORY: s/p cabg eval effusions I25.10, Atherosclerotic heart disease of paimi[place] coronary artery without angina pectoris TECHNIQUE: PA [...] eval effusions I25.10, Atherosclerotic heart disease of paimi[place] coronary artery withoutangina pectoris TECHNIQUE: PA and [...] patients who have questions please contactthe health laboratory animal care veterinarian that requested your imaging first. Zak Farmer [...] decision made by: Patient Care Teams Director Technical Relationship Specialty Start Date End Date Vanessa Christian, MAURI [address] [place] [address] PCP - General Family Medicine 05/27/24
--- OUTSIDE RECORDS SUMMARY | 2024-06-12 08:26 | XMS_ITS | Clinical Summary ---
Author Organization [facility] Address [address] [place] [address] Care Team Providers Care Flyer Maker Name Role Phone Vanessa Christian NP Primary Care Provider [phone] Social History Tobacco Use Types Packs/Day Years [...] COVID-19 Vaccine (2022-24 season) 2023 Care Teams Flyer Maker Relationship Specialty Start Date End Date Vanessa Christian NP [address] [place] [phone] PCP - General Family Medicine - Primary Care 10/07/23
--- OUTSIDE RECORDS SUMMARY | 2024-06-12 08:26 | XMS_ITS | Encounter Summary ---
Author Organization [facility] Address [facility] [place] [address] Care Team Providers Care Music Therapy Specialist Name Role Phone Vanessa Christian MAURI Primary Care Provider [phone] Encounter Details Date Type Department Care Team (Latest Contact Info) Description 03/12/2024 1:30 PM EDT - 03/12/2024 11:59 PM EDT Hospital Encounter XRay at [address] [place] [address] Coronary artery disease, unspecified vessel or lesion type, unspecified whether angina present, unspecified whether [place] or transplanted heart Discharge Disposition: Home Social History Tobacco Use Types Packs/Day Years Used Date Smoking Tobacco: Former Cigarettes Smokeless Tobacco: Never Comments:Quit 15 + years ago Alcohol Use Standard Drinks/Week Comments Yes 0 (1 standard drink = 0.6 oz pur e alcohol) rare [facility] Utilities Answer Date Recorded In the past 12 months has e [employer], gas, oil, or water [employer] threatened to shut off services in your [...] PM EST Office Visit Cardiology at [address] [place] [address] Neftali Ernandez MD [facility] [place] [address] documented as of this encounter Procedures Procedure Name Priority Date/Time Associated Diagnosis Comments XR CHEST PA AND LATERAL Routine 03/12/2024 1:42 PM EDT Coronary artery disease, unspecified vessel or lesion type, unspecified whether angina present, unspecified whether [place] or transplanted heart documented in this encounter Results * XR Chest PA & Lateral (Generic) (03/12/2024 1:42 PM EDT) WORKSTATION ID [id number] RAD Anatomical Region Laterality Modality Chest N/A [...] eval effusions I25.10, Atherosclerotic heart disease of [place] coronary artery without angina pectoris TECHNIQUE: PA [...] eval effusions I25.10, Atherosclerotic heart disease of [place] coronary artery withoutangina pectoris TECHNIQUE: PA and [...] type, unspecified whether angina present, unspecified whether [place] or transplanted heart documented in this encounter Care Teams Music Therapy Specialist Relationship Specialty Start Date End Date Vanessa Christian, MAURI PCP - General Family Medicine 10/21/23 05/26/24 documented as of this encounter
--- OUTSIDE RECORDS SUMMARY | 2024-06-12 08:26 | XMS_ITS | Encounter Summary ---
Author Organization [facility] Address [address] [place] [address] Care Team Providers Care Fagoting Machine Operator Name Role Phone Vanessa Christian Lane MONCADA Primary Care Provider [phone] Encounter Details Date Type Department Care Team (Late st Contact Info) Description 10/24/2023 Lab Requisition [facility] Pathology & Laboratory Medicine - [address] [address] Oscar Nichole MD [address] [place] [address] [id number] Factitial dermatitis Social History Tobacco Use Types [...] management options, if applicable. 10/28/2023 11:24 EST [facility] Final Diagnosis A. SKIN OF ZOROASTRIAN, LEFT, SHAVE BIOPSY: - Seborrheic keratosis, pigmented. 10/28/2023 11:24 EST [facility] Attestation By the signature below, the attending physician certifies that they have 1) personally conducted a gross and/or microscopic examination of the described specimen(s), and/or personally interpreted the results of laboratory testing of the described specimen(s), and 2) personally rendered or confirmed the above diagnosis. 10/28/2023 11:24 [facility] at [address]4 Microscopic Description The stratum corneum is thickened by compact and basketweave orthokeratosis with formation of horn pseudocysts. The epidermis is acanthotic with formation of broad and anastomosing trabeculae. The trabeculae are composed of basaloid keratinocytes with round uniform nuclei. The keratinocytes have a variable amount of melanin pigment. 10/28/2023 11:24 [facility] Clinical History Pigmented 2 cm patch; clinical diagnosis code: L98.1 10/28/2023 11:24 [facility] Gross Description A. Received in formalin labelled with proper patient identification (initials P, A) and left adventist is a shave biopsy of an irregular [...] A3. Nora Anderson 10/25/2023 8:47 10/28/2023 11:24 [facility] Performing Lab [facility] 10/28/2023 11:24 [facility] Scanned Images 10/28/2023 11:24 [facility] Tissue SPECIMEN FROM SKIN / Unknown 10/24/2023 14:30 EST 10/24/2023 22:04 EST Oscar Nichole MD PATHOLOGY ORDERABLES [facility] [address] [place] [address] documented in this encounter Visit Diagnoses Diagnosis Factitial dermatitis Dermatitis factitia (artefacta) documented in this encounter Care Teams Fagoting Machine Operator Relationship Specialty Start Date End Date Vanessa Christian NP [address] [place] [address] PCP - General Family Medicine - Primary Care 10/07/23 documented as of this encounter
--- OUTSIDE RECORDS SUMMARY | 2024-06-12 08:26 | XMS_ITS | Encounter Summary ---
Author Organization [facility] Address [facility] [place] [address] Care Team Providers Care Lead Operator Name Role Phone Vanessa Christian MAURI Primary Care Provider [phone] Encounter Details Date Type Department Care Team [...] 3:00 PM EST Office Visit Cardiology at [address] [phone] Neftali Ernandez MD [facility] [place] [address] documented as of this encounter Visit Diagnoses Not on filedocumented in this encounter Care Teams Lead Operator Relationship Specialty Start Date End Date Vanessa Chrisitan APRN PCP - General Family Medicine 10/21/23 05/26/24 documented as of this encounter
--- OUTSIDE RECORDS SUMMARY | 2024-06-12 08:26 | XMS_ITS | Encounter Summary ---
Author Organization [facility] Address [facility] [place] [address] Care Team Providers Care Customer Experience Intern Name Role Phone Vanessa Christian DIFFERENTIAL SPECIALIST Primary Care Provider [phone] Encounter Details Date Type Department Care Team (Late st Contact Info) Description 03/12/2024 2:40 PM EDT Office [place] [phone] Zak Farmer MD [facility] [place]ARDI[facility] [address] Coronary artery disease, unspecified vessel or lesion type, unspecified whether angina present, unspecified whether [place] or transplanted heart Social History Tobacco Use Types Packs/Day Years Used Date Smoking Tobacco: Former Cigarettes Smokeless Tobacco: Never Comments:Quit 15 + years ago Alcohol Use Standard Drinks/Week Comments Yes 0 (1 standard drink = 0.6 oz pur e alcohol) rare [facility] Utilities Answer Date Recorded In the past 12 months has e [employer], gas, oil, or water [employer] threatened to shut off services in your [...] 2:40 PM EDT To: MD Vanessa Coles, DIFFERENTIAL SPECIALIST Re; Karlos Santa ( 1960) We [...] office. Best personal regards, Zak Farmer MD [phone] documented in this encounter Plan of Treatment Upcoming Encounters Date Type Department Care Team (Late st Contact Info) Description 11/30/2024 3:00 PM EST Office Visit Cardiology at [address] [place] [address] Neftali Ernandez MD [facility] [place] [address] documented as of this encounter Procedures Procedure Name Priority Date/Time Associated Diagnosis Comments EKG 12-LEAD Routine 03/12/2024 2:35 PM EDT Coronary artery disease, unspecified vessel or lesion type, unspecified whether angina present, unspecified whether [place] or transplanted heart documented in this encounter Results * EKG 12 Lead (03/12/2024 2:35 PM EDT) Ventricular rate 59 BPM MUSE SYSTEM Atrial Rate 59 BPM MUSE SYSTEM P-R Interval 190 ms MUSE SYSTEM QRS Duration 92 ms MUSE SYSTEM Q-T Interval 406 ms MUSE SYSTEM QTC Calculated (Bezet) 401 ms MUSE SYSTEM Calculated P Willards -12 degrees MUSE SYSTEM Calculated R Willards 24 degrees MUSE SYSTEM Calculated T Willards 74 degrees MUSE SYSTEM INTERPRETATION Sinus bradycardia T wave abnormality, consider anterior ischemia Abnormal ECG When compared with ECG of 17-FEB-2024 13:24, [place] interval has decreased T wave inversion now evident in Anterior leads Confirmed by Paul Guzman ([id number]) on 03/15/2024 8:36:23 AM MUSE SYSTEM 03/12/2024 2:35 PM EDT 03/15/2024 8:36 AM EDT Zak Farmer MD ECG ORDERABLES MUSE SYSTEM documented in this encounter Visit Diagnoses Diagnosis Coronary artery disease, unspecified vessel or lesion type, unspecified whether angina present, unspecified whether [place] or transplanted heart documented in this encounter Care Teams Customer Experience Intern Relationship Specialty Start Date End Date Vanessa Christian APRN PCP - General Family Medicine 10/21/23 05/26/24 documented as of this encounter
--- OUTSIDE RECORDS SUMMARY | 2024-06-12 08:26 | XMS_ITS | Encounter Summary ---
Author Organization [facility] Address [facility] [place] [address] Care Team Providers Care Care Center Manager Name Role Phone Gino Vanessa Lane DOTSON Primary Care Provider [phone] Encounter Details Date Type Department Care Team (Late st Contact Info) Description 02/24/2024 Orders Only Cardiac Surgery [facility] [place] [phone] Trudi Lester APRN [facility] [place] [place] [address] Social History Tobacco Use Types Packs/Day Years Used Date Smoking Tobacco: Former Cigarettes Smokeless Tobacco: Never Comments:Quit 15 + years ago Alcohol Use Standard Drinks/Week Comments Yes 0 (1 standard drink = 0.6 oz pur e alcohol) rare [facility] Utilities Answer Date Recorded In the past 12 months has e judge[employer], gas, oil, or water [employer] threatened to shut off services in your [...] PM EST Office Visit Cardiology at [address] [place] [address] Neftali Ernandez MD [facility] [place] [address] documented as of this encounter Visit Diagnoses Not on filedocumented in this encounter Care Teams Care Center Manager Relationship Specialty Start Date End Date Vanessa Christian APRN PCP - General Family Medicine 10/21/23 05/26/24 documented as of this encounter
--- OUTSIDE RECORDS SUMMARY | 2024-06-12 08:26 | XMS_ITS | Encounter Summary ---
Author Organization [facility] Address [facility] [place] [address] Care Team Providers Care Fountain Brush Assembler Name Role Phone Vanessa Christian MAURI Primary Care Provider Encounter Details Date Type Department Care Team (Latest Contact Info) Description 05/27/2024 Travel Social History Tobacco Use Types Packs/Day Years Used Date Smoking Tobacco: Former Cigarettes Smokeless Tobacco: Never Comments:Quit 15 + years ago Alcohol Use Standard Drinks/Week Comments Yes 0 (1 standard drink = 0.6 oz pur e alcohol) rare [facility] Utilities Answer Date Recorded In [...] PM EST Office Visit Cardiology at [address] [phone] Neftali Ernandez MD [facility] [place] [address] documented as of this encounter Visit Diagnoses Not on filedocumented in this encounter Care Teams Fountain Brush Assembler Relationship Specialty Start Date End Date Vanessa Christian APRN [address] [place] [address] PCP - General Family Medicine 05/27/24 documented as of this encounter
--- OUTSIDE RECORDS SUMMARY | 2024-06-12 08:27 | XMS_ITS | Encounter Summary ---
[place] [address] Care Team Providers Care Customer Manager Name Role Phone Aparna Jordan MAURI Primary Care Provider [phone] Reason for Referral * Diagnostic Test (Routine) - New Request Specialty Diagnoses / Procedures Referred By Contac t Referred To Contact Cardiology Diagnoses S/P AVR Procedures Echocardiogram Transthoracic Neftali Menon PA [facility] [place] [address] [facility] [place] [address] Referral ID Status Reason Start Date Expiration Date Visits Requested Visits Authorized [id number] New Request Specialty Service Requested 02/24/2024 02/23/2025 1 1 * Consultation (Routine) - Authorized Specialty Diagnoses / Procedures Referred By Contac t Referred To Contact Cardiology Diagnoses S/P AVR Hayder Graham MD [facility] [place] [address] Cardiac Rehab, [facility][1] [address] [place] [address] [place] [address] Referral ID Status Reason Start Date Expiration Date Visits Requested Visits Authorized [id number] Authorized Consult, Test & Treat 02/24/2024 08/22/2024 36 36 * Home Health Care (Routine) - Authorized Specialty Diagnoses / Procedures Referred By Sixto mendoza Referred To Contact Diagnoses S/P AVR Hayder Graham MD [facility] [place] [address] Referral ID Status Reason Start Date Expiration Date Visits Requested Visits Authorized [id number] Authorized Consult, Test & Treat 02/24/2024 08/22/2024 [...] ARTERIAL GRAFT (WRVU 7.93) Hayder Graham MD [facility] [place] [address] [facility] Referral ID Status Reason Start Date Expiration Date Visits Re quested Visits Authorized [id number] 1 1 Encounter Details Date Type Department Care Team (Latest Contact Info) Description 02/17/2024 5:43 AM EDT - 02/24/2024 11:23 AM EDT Hospital Encounter Heart and Vascular Unit Level 4 [place] [address] Hayder Graham MD [facility] [place] [address] S/P AVR (Primary Dx); Aortic valve stenosis, etiology of cardiac valve disease unspecified Discharge Disposition: Home with VNA Social History Tobacco Use Types Packs/Day Years Used Date Smoking Tobacco: Former Cigarettes Smokeless Tobacco: Never Comments:Quit 15 + years ago Alcohol Use Standard Drinks/Week Comments Yes 0 (1 standard drink = 0.6 oz pur e alcohol) rare [facility] Utilities Answer Date Recorded In [...] 1-2 weeks. Patient to follow up with Interior Design Director, Neftali Ernandez MD , in 2 weeks. Patient to follow up with Cardiac Surgeon, Dr. Hayder Graham, with a chest x-ray, EKG, and Echo. Inpatient Provider Contact Information: [facility] Section of Cardiac Surgery [facility] [address] FAX [phone] Discharge Diagnoses (Hospital Problems) Primary Diagnoses: /CAD [...] 33.75) performed by Hayder Graham MD at [facility] MAIN OR PRO CABG, ARTERY-VEIN, TWO N/A 02/17/2024 @CABG, TWO VENOUS GRAFTS & ARTERIAL GRAFT (WRVU 7.93) performed by Hayder Graham MD at [facility] MAIN OR PRO ENDOSCOPY W/VIDEO-ASST VEIN HARVEST, CABG Left 02/17/2024 ENDOSCOPIC HARVEST VEIN(S) FOR CABG (WRVU 0.31) performed by Hayder Graham MD at [facility] MAIN OR PRO REPLACEMENT PROSTHETIC AORTIC VALVE OPEN W CARDIOPULMONARY BYPASS HOMOGRF/STENT N/A 02/17/2024 @REPLACE AORTIC VALVE, OPEN, W\CPB, W\PROSTHETIC VALVE (WRVU 41.32) performed by Hayder Graham MD at [facility] MAIN OR Prior To Admission [...] insufficiency. He has glaucoma. He used to [employer]) until about 15 years ago. He has undergone prior herniorrhaphy. 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 Major Procedures/Operations: 02/17/24 s/p avr/cabgx3 CABG x 3 JOSE->LAD SVG->dRCA SVG->OM1 EVH from LLE AVR with a 23 mm Inspiris Bioprosthesis Hospital Course: Karlos Garcia was admitted to [facility] on 02/17/2024 via the Same Day [...] Hayder Graham and/or the Cardiac Surgery Physician Machine Wood Sander Team may be reached at . Antibiotic [...] Please refer to the card with the [place] Heart Association Guidelines for more information. You [...] Dr. Hayder Graham. You may use a [place] Track or treadmill but avoid any pulling [...] friends, go to a movie, go to mu-ism, etc. Heavy activities: No hunting, skiing, jogging, [...] should resume a low fat, low cholesterol, [place] Heart Association Diet. Driving: No driving until [...] while being managed by your PCP and/or Interior Design Director. For future medication refills, please refer to your PCP and/or Interior Design Director after your discharge from our service. Thank you REMOVE CHEST TUBE SUTURES ON OR AFTER 03/02/24 Home oxygen therapy: N/A Follow up appointments: You should follow up with your PCP, Aparna Jordan APRN, in 1-2 weeks. Our office will schedule an appointment with your Interior Design Director, Neftali Ernandez MD , in 2 weeks. You have an appointment with your Cardiac Surgeon, Dr. Hayder Graham, 4 weeks with a chest x-ray, EKG, and Echo before your appointment. Cardiac Rehabilitation: Karlos Garcia was seen regarding participation in the outpatient Phase 2Cardiac Rehabilitation at [facility]. The patient agrees to a referral to this program. The referral will be sent at discharge and the patient should be contacted by the Program within 1- 2 weeks from discharge. Future Appointments and Orders Future Orders Complete By Expires Echocardiogram Transthoracic [92910 CPT(R)] 03/26/2024 09/25/2024 Process Instructions: Scheduling Instructions: Questions: Where will study be performed?: [facility] Clinics Does the patient have Congenital Heart Disease?: Does patient require sedation?: Sedation rationale: XR Chest PA & Lateral (Generic) [85407 44642 Custom] 03/26/2024 09/25/2024 Process Instructions: Scheduling Instructions: Questions: Portable exam?: Reason for exam and clinical history: s/p avr/cabg Clinical information / jerome questions for radiologist: Stat read required?: Date of injury if applicable: Requested Time: Where will study be performed?: [facility] Radiology Referral to Cardiac Rehab [[id number] Custom] As directed Process Instructions: If no progress note charted, please enter Clinical details in comments. Scheduling Instructions: Questions: My question or request is: s/p AVR/CABG. Cardiac rehab at [facility]. Referral to Home Health [REF34 Custom] As directed Process Instructions: If no progress note charted, please enter Clinical details in comments. Scheduling Instructions: Comments: Please evaluate Karlos Garcia for admission to Home Health. 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 [address] [place] [address] RN orders: Cardiopulmonary assessment, incisional assessment, assess [...] issues please call the Cardiology Office at [phone] FOR MEDICARE ONLY: (please delete this section [...] APRN [address] / [place] [address] . All VNA agencies which cover the area of patient's residence have been reviewed, either verbally or in writing, and patient/family have chosen the home health care agency noted. Questions: Disciplines Requested: Nursing Physical Therapy Arrangements for VNA/home care: As above. Signed: NEFTALI MENON PA-C [facility] Section of Cardiac Surgery [facility] [address] FAX [phone] Date: 02/24/2024 CC: Aparna Jordan, MAURI Jordan, Aparna Sherman APRN [address] [place] [address] documented in this encounter Discharge Instructions * [...] Hayder Graham and/or the Cardiac Surgery Physician Machine Wood Sander Team may be reached at . Antibiotic [...] Please refer to the card with the [place] Heart Association Guidelines for more information. You [...] Dr. Hayder Graham. You may use a [place]on Track or treadmill but avoid any pulling [...] friends, go to a movie, go to mu-ism, etc. Heavy activities: No hunting, skiing, jogging, [...] should resume a low fat, low cholesterol, [place] Heart Association Diet. Driving: No driving until [...] while being managed by your PCP and/or Interior Design Director. For future medication refills, please refer to your PCP and/or Interior Design Director after your discharge from our service. Thank you REMOVE CHEST TUBE SUTURES ON OR AFTER 03/02/24 Home oxygen therapy: N/A Follow up appointments: You should follow up with your PCP, Aparna Jordan APRN, in 1-2 weeks. Our office will schedule an appointment with your Interior Design Director, Neftali Ernandez MD , in 2 weeks. You have an appointment with your Cardiac Surgeon, Dr. Hayder Graham, 4 weeks with a chest x-ray, EKG, and Echo before your appointment. Cardiac Rehabilitation: Karlos Garcia was seen regarding participation in the outpatient Phase 2Cardiac Rehabilitation at [facility]. The patient agrees to a referral to [...] 0600 and on the weekends please page [phone]. * Eric Barahona PA - 02/23/2024 9:27 [...] 0600 and on the weekends please page [phone]. * Tiffanie Owens - 02/22/2024 2:48 PM [...] Pt reports his dtr is coming from [place] to stay upon d/c for 10 days. 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 He drives. He works Precautions/Special Considerations: STERNAL [...] LRAD and supervision Time IN / OUT: 3324-6055 Total Time: 30 minutes; TEFx2 Tiffanie Owens Pager: [phone] Physical Therapy Inpatient Rehabilitation Department * Romeo [...] 0600 and on the weekends please page [phone]. * Kelley Hinson, HRIS ADMINISTRATOR - 02/21/2024 10:15 AM EDT Physical Therapy [...] Pt reports his dtr is coming from [place] to stay upon d/c for 10 days. 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 He drives. He works Precautions/Special Considerations: STERNAL [...] LRAD and supervision Time IN / OUT: 5683-7589 Total Time: 25 minutes; TEF 2 Kelley Hinson PTA Pager: [phone] Physical Therapy Inpatient Rehabilitation Department * Louisa [...] 0600 and on the weekends please page [phone]. * Kellye Hinson PTA - 02/20/2024 3:32 PM EDT 02/20/24 6606 Evaluation & Treatment Document Type contact Total Minutes, Physical Therapy 0 Comment, Session Not Performed Checked in w/ pt this PM for ongoing PT services, pt politely declined, stating he had been dealing w/ nausea all day, made plan to see him tomorrow morning, will f/u at that time Kelley Hinson PTA Pager: [phone] Physical Therapy Inpatient Rehab Department * Louisa [...] 0600 and on the weekends please page [phone]. * Maris Benavides, PT - 02/19/2024 11:22 [...] Pt reports his dtr is coming from [place] to stay upon d/c for 10 days. 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 Precautions/Special Considerations: STERNAL [...] outlined inthis evaluation. MARIS BENAVIDES, PT Pager: [phone] Physical Therapy Inpatient Rehabilitation Department Time IN / OUT: 3096-5015 Total Time: 38 (eval) minutes; * Antonio lAlen PA - 02/19/2024 9:16 AM EDT Cardiac [...] 0600 and on the weekends please page [phone]. * Minnie Begum PA - 02/18/2024 8:25 [...] 0600 and on the weekends please page [phone]. * Kim Ha RCP - 02/17/2024 2:25 [...] plan since last visit. Hayder Graham MD [phone] Source Note - Hayder Graham MD - [...] insufficiency. He has glaucoma. He used to [employer]) until about 15 years ago. He has [...] given written informed consent. Hayder Graham MD [phone] * Hayder Graham MD - 02/17/2024 7:00 [...] given written informed consent. Hayder Graham MD [phone] documented in this encounter Miscellaneous Notes * [...] information for follow-up Home Health & Hospice, [address] [place] [address] Cardiac Rehab, [address] [place] [address] Transportation: family or friend will provide Functional status prior to admission: Independent Home Environment: Others in the home: alone. Current Living Arrangements: home/apartment/condo. Accessibility Concerns:a few steps to enter 1 floor home. Current Functional Ability: Assistive Person and Equipment DME used at home: none DME Needed at Discharge: N/A Patient is insured through: Primary Insurance: [facility] Payor: [facility] / Plan: [facility] PPO / Product Type: *No [...] as Appropriate) * Plan of Care - Ingrdi Menjivar RN - 02/22/2024 6:03 PM EDT [...] pain managed with scheduled Tylenol. Worked with [employer]. Ambulated in the roque multiple times during [...] anticipated Patient is insured through: Primary Insurance: [employer] Payor: [employer] / Plan: [facility] PPO / Product Type: *No Product type* / Secondary Insurance: N/A Last Physical Therapy Recommendation: home with home health (Str coming to stay for a week or two upon d/c) with to be determined (owns rolling walker, shower seat) Plan for discharge is: Home w/ Services Outpatient Agency/Support Group Needs: Homecare agency Home Health Services: Physical Therapy, Registered Nurse Agency Referrals: [facility]. [address] [place] [address] Transportation: family or friend will provide Barriers to discharge: Discharge planning Plan going forward: Service Care Management will continue to follow and assist with discharge planning and coordination of care as indicated. Anticipated Date of Discharge: 02/22/2024 Rhett Bell RN RN/CM - Cellphone: [phone] Pager: [phone] Covering Service RN/CM * Plan of Care [...] Yang RN - 02/19/2024 10:44 AM EDT [facility] CARDIAC REHABILITATION Karlos Garcia was seen today regarding participation in the outpatient Phase 2 Cardiac Rehabilitation at [facility]. The patient agrees to a referral to [...] receiving care in [place] must abide by [place] law. The hierarchy [...] (i) The agent with financial power of boiler shop mechanic or a conservator appointed in accordance with [...] steady place to sleep or slept in [facility] (including now)?: No In the past 12 months has the [employer], gas, oil, or water [employer] threatened to shut off services in your [...] [address] [facility] [address] Physical address: [address] [facility], [address] Social & Family Supports: All names listed [...] noted Health/Prescription Coverage: Primary Insurance: [facility] Payor: [facility] / Plan: [facility] PPO / Product Type: *No Product type* / Secondary Insurance: N/A ; Prescription Coverage: Yes Preferred Pharmacy: [id number] AT [address] [address] [place] Status: Patient is a : No Primary Care Provider confirmed: Aparna Jordan, SPECIFICATION MANAGER [phone] Patient/Caregiver Goals of Treatment: dc to home Potential Needs for Transition of Care: home health care Agency Referrals: I have met with the patient to: discuss discharge planning needs. provide the [facility], Office of Care Management letter from the Switch Adjuster pertaining to rehab referrals. provide a letter describing our affiliations within the [facility] and educate about their right to choose where referrals are sent. provide a list of Home Health Agencies / Durable Medical Equipment vendors which serve their preferred geographic area. provided patient with [facility] Star Quality Rating handout. They have requested referrals to: [facility] [address] [place] [address] Note routed to a Change Management Specialist who will communicate referrals to facilities [...] daughter, Cielo, will be coming in from [place] on 02/18, to stay with him , [...] Reina Greene RN CM, BSN, CMGT- Ext [phone] * Plan of Care - Binta Trinidad [...] EDT Brief Operative Note Patient Name: Karlos Gacria : [id number] MR#: [id number] Case Date: 02/17/2024 Surgeon: Surgeon(s) and Role: * Hayder Graham MD - Primary * Neftali Menon PA - Physician Machine Wood Sander Preoperative diagnosis: CAD Postoperative diagnosis: CAD, intraoperative [...] Mediastinal and Left pleural Disposition: [facility] Condition: doing well without problems Attestation: Case Date: 02/17/2024 I performed this procedure without the involvement of a resident. HAYDER GRAHAM MD 02/17/2024 * Op Note - Hayder Graham MD - 02/17/2024 8:20 AM EDT [facility] Operative Note Patient Name: Karlos Garcia : [id number] MR#: [id number] Case Date: 02/17/2024 Surgeon: Surgeons and Role: * Hayder Graham MD - Primary * Neftali Menon PA - Physician Machine Wood Sander Preoperative diagnosis: CAD Postoperative diagnosis: CAD, intraoperative [...] Mediastinal and Left pleural Disposition: [facility] Procedure Description: The patient was brought to [...] PM EST Office Visit Cardiology at [address] [place] [address] Neftali Ernandez MD [facility] [place] [address] Scheduled Orders Name Type Priority Associated Diagnoses [...] Aortic Valve Open W Cardiopulmonary Bypass Homogrf/Stent (80180) Yes 02/17/2024 7:28 AM EDT CAD Cabg, Artery-Vein, Two (87718) Yes 02/17/2024 7:28 AM EDT CAD Cabg, Arterial, Single (65888) Yes 02/17/2024 7:28 AM EDT CAD Endoscopy W/Video-Asst Vein [place], Cabg (43437) Yes 02/17/2024 7:28 AM EDT CAD POCT [...] ORDERABLE S [facility] [place] [address] * (ABNORMAL) Basic Metabolic Panel (non-fasting) (02/23/2024 [...] CHEMISTRY ORDERABLES [facility] [place] [address] * Potassium (02/22/2024 4:30 AM EDT) Potassium [...] ORDERABLE S [facility] [place] [address] * (ABNORMAL) Basic Metabolic Panel (non-fasting) (02/21/2024 [...] [facility]/ZIP Co de Phone Number [facility] [place] [address] * Lactate, whole blood, send to lab ([facility]) (02/21/2024 9:45 AM EDT) [facility] Lactate WB 2.0 0.5 - 2.2 mmol/L [facility] Blood 02/21/2024 9:45 AM EDT 02/21/2024 9:52 AM EDT Narrative Resulting Agency Comment Spec In Lab Hayder Graham MD CHEMISTRY ORDERABLE S Performing Organization Address City/[facility]/ZIP Co de Phone Number [facility] [place] [address] * (ABNORMAL) Hepatic Function Panel (02/21/2024 9:45 AM EDT) [facility] Protein, Total 5.7(L) 6.1 - [...] CHEMISTRY ORDERABLE S Performing Organization Address City/[facility]/ZIP Co de Phone Number [facility] [place] [address] * Lipase (02/21/2024 9:45 AM EDT) Lipase 56 0 - 60 unit/L [facility] Blood 02/21/2024 9:45 AM EDT 02/21/2024 9:52 AM EDT Narrative Resulting Agency Comment Spec In Lab Hayder Graham MD CHEMISTRY ORDERABLE S Performing Organization Address [facility] Co de Phone Number [facility] [place] [address] * Amylase (02/21/2024 9:45 AM EDT) Amylase 69 28 - 100 unit/L [facility] Blood 02/21/2024 9:45 AM EDT 02/21/2024 9:52 AM EDT Narrative Resulting Agency Comment Spec In Lab Hayder Graham MD CHEMISTRY ORDERABLE S Performing Organization Address [facility] Co de Phone Number [facility] [place] [address] * Potassium (02/21/2024 3:08 AM EDT) Potassium [...] ORDERABLE S [facility] [place] [address] * XR Chest PA & Lateral (Generic) (02/20/2024 10:19 AM EDT) WORKSTATION ID [id number] RAD Anatomical Region Laterality Modality Chest N/A Digital Radiogra phy Impressions 02/20/2024 1:11 PM EDT Small pleural effusions. No pneumothorax Thank you for letting us participate in the care of this patient. ??If you are a health care provider and have any questions regarding this report, please contact the number below. ??For patients who have questions please contact the health intensive care unit nurse that requested your imaging first. ? Narrative 02/20/2024 1:11 PM EDT EXAMINATION: XR CHEST PA AND LATERAL (GENERIC) CLINICAL HISTORY: s/p AVR/CABGx3 TECHNIQUE: PA and lateral views of the chest COMPARISON: 02/17/2024 FINDINGS: Support devices: Interval removal of Hazard-Kaila catheter, endotracheal tube and mediastinal chest tubes The cardiac silhouette is stable status post median sternotomy, CABG and aortic valve replacement. There are small pleural effusions. No pneumothorax. Procedure Note Rogerio Cruz MD - 02/20/2024 EXAMINATION: XR CHEST PA AND LATERAL (GENERIC) CLINICAL HISTORY: s/p AVR/CABGx3 TECHNIQUE: PA and lateral views of the chest COMPARISON: 02/17/2024 FINDINGS: Support devices: Interval removal of Hazard-Kaila catheter, endotracheal tubeand mediastinal chest tubes The [...] patients who have questions please contactthe health intensive care unit nurse that requested your imaging first. Hayder Graham MD IMG DX ORDERABLES * Scan, Peripheral Blood (02/20/2024 4:23 AM EDT) Pathologist [facility] Plat estimate Decreased [facility] RBC Morphology Normal [facility] Blood 02/20/2024 4:23 AM EDT 02/20/2024 4:42 AM EDT Narrative Resulting Agency Comment Spec In Lab Minnie FRENCH HEMATOLOGY CECILIO ALEMAN Performing Organization Address City/State/[facility] Co de Phone Number [facility] [place] [address] * (ABNORMAL) Differential, Automated (02/20/2024 4:23 AM EDT) [facility] Neutrophil % 81.7 % [facility] Neutrophil Absolute 10.37(H) 1.70 - 6.10 x10(3)/mc L [facility] Lymph % 7.4 % [facility] Lymphocytes Abs 0.9 0.9 - 3.2 x10(3)/mc L [facility] Monocyte % 9.7 % [facility] Monocyte Abs 1.2(H) 0.3 - 0.9 x10(3)/mc L [facility] Eos % 0.1 % [facility] Eosinophils Abs 0.0 0.0 - 0.4 x10(3)/[facility]ORAT[facility] Basophil % 0.2 % [facility] Baso Absolute 0.0 0.0 - 0.1 x10(3)/[facility] LABORAT[facility] Immature Gran % 0.90 % [facility] Comment: Immature granulocytes(IG's)percentage and absolute count will include metamyelocytes, myelocytes, and promyelocytes. Blood smears from CBCs yielding IG's will be scanned manually for concordance. If this scan disagrees with the automated IG or if promyelocytes are noted, a manual differential will be performed. Immature Gran Absolute 0.12(H) 0.00 - 0.04 x10(3)/[facility] Blood 02/20/2024 4:23 AM EDT 02/20/2024 4:42 AM EDT Narrative Resulting Agency Comment Spec In Lab Minnie FRENCH HEMATOLOGY CECILIO ALEMAN [facility] [place] [address] * (ABNORMAL) Hemogram (02/20/2024 4:23 AM EDT) White Blood Cell 12.7(H) 4.0 - 9.5 x10(3)/[facility] LABORATORY Red Blood Cell 4.26(L) 4.58 - 5.54 x10(6)/[facility] LABORATORY Hemoglobin 12.3(L) 13.7 - [...] [facility]ICAL CENTER LABORATORY NRBC% auto 0.0 % [facility] NRBC Absolute 0.000 0.000 - 0.000 x10(3)/mc L [facility] Blood 02/20/2024 4:23 AM EDT 02/20/2024 4:42 AM EDT Narrative Resulting Agency Comment Spec In Lab Minnie FRENCH HEMATOLOGY CECILIO ALEMAN [facility] [place] [address] * (ABNORMAL) Basic Metabolic Panel (non-fasting) (02/20/2024 [...] ORDERABLE S Performing Organization Address [facility] Co de Phone Number [facility] [place] [address] * Potassium (02/19/2024 3:57 AM EDT) [facility] Potassium 4.3 3.5 - 5.0 mmol/L [facility] [...] ORDERABLE S Performing Organization Address [facility]/ZIP Co de Phone Number [facility] [place] [address] * POCT Glucose (02/18/2024 8:24 AM EDT) Glucose, POC 157 65 - 199 mg/dL [facility] Comment: Supplemental ranges: <140 mg/dL before meals <180 mg/dL all other times of the day Blood 02/18/2024 8:24 AM EDT 02/18/2024 8:24 AM EDT Hayder Graham MD POINT OF CARE TEST ORDERABLES Performing Organization Address City/[facility]/ZIP Co de Phone Number [facility] [place] [address] * Scan, Peripheral Blood (02/18/2024 1:40 AM EDT) [facility] Plat estimate Decreased [facility] RBC Morphology Normal [facility] Blood 02/18/2024 1:40 AM EDT 02/18/2024 1:56 AM EDT Narrative Resulting Agency Comment Spec In Lab Neftali FRENCH HEMATOLOGY ORDER LOE Performing Organization Address City/[facility]/ZIP Co de Phone Number [facility] [place] [address] * (ABNORMAL) Differential, Automated (02/18/2024 1:40 AM EDT) [facility] Neutrophil % 87.1 % [facility] Neutrophil Absolute 15.03(H) 1.70 - 6.10 x10(3)/mc L [facility] Lymph % 3.0 % [facility] Lymphocytes Abs 0.5(L) 0.9 - 3.2 x10(3)/mc L [facility] Monocyte % 9.1 % [facility] Monocyte Abs 1.6(H) 0.3 - 0.9 x10(3)/mc L [facility] Eos % 0.0 % [facility] Eosinophils Abs 0.0 0.0 - 0.4 x10(3)/mc L [facility] Basophil % 0.2 % [facility] [...] ORDER OLE [facility] [place] [address] * (ABNORMAL) Hemogram (02/18/2024 1:40 AM EDT) [...] MEDICAL CENTER LABORATORY NRBC% auto 0.0 % [facility] NRBC Absolute 0.000 0.000 - 0.000 x10(3)/mc L [facility] Blood 02/18/2024 1:40 AM EDT 02/18/2024 1:56 AM EDT Narrative Resulting Agency Comment Spec In Lab Neftali FRENCH HEMATOLOGY ORDER OLE [facility] [place] [address] * (ABNORMAL) Basic Metabolic Panel (non-fasting) (02/18/2024 [...] ORDERABLE S [facility] [place] [address] * (ABNORMAL) Troponin (02/18/2024 1:40 AM EDT) [...] Medical Center Laboratory Test Catalog Reference: Fourth [place] Definition of Myocardial Infarction. Journal of the [place] [employer] 2018;72:9374-6380 Blood 02/18/2024 1:40 AM EDT 02/18/2024 1:56 AM EDT Narrative Resulting Agency Comment Spec In Lab Hayder Graham MD CHEMISTRY ORDERABLE S [facility] [place] [address] * POCT Glucose (02/17/2024 8:13 PM EDT) Glucose, POC 142 65 - 199 mg/dL [facility] Comment: Supplemental ranges: <140 mg/dL before meals <180 mg/dL all other times of the day Blood 02/17/2024 8:13 PM EDT 02/17/2024 8:13 PM EDT Hayder Graham MD POINT OF CARE TEST ORDERABLES Performing Organization Address [facility]/ZIP Co de Phone Number [facility] [place] [address] * POCT Glucose (02/17/2024 5:42 PM EDT) Glucose, POC 160 65 - 199 mg/dL [facility] Comment: Supplemental ranges: <140 mg/dL before meals <180 mg/dL all other times of the day Blood 02/17/2024 5:42 PM EDT 02/17/2024 5:42 PM EDT Hayder Graham MD POINT OF CARE TEST ORDERABLES Performing Organization Address City/[facility]/ZIP Co de Phone Number [facility] [place] [address] * Hemoglobin (02/17/2024 5:42 PM EDT) Hemoglobin 13.7 13.7 - 16.5 g/dL [facility] Blood 02/17/2024 5:42 PM EDT 02/17/2024 6:10 PM EDT Narrative Resulting Agency Comment Spec In Lab Hayder Graham MD HEMATOLOGY ORDERABL ES Performing Organization Address [facility] Co de Phone Number [facility] [place] [address] * Potassium (02/17/2024 5:42 PM EDT) Potassium [...] ORDERABLE S Performing Organization Address [facility] de Phone Number [facility] [place] [address] * (ABNORMAL) BLOOD GAS 2 ARTERIAL (02/17/2024 [...] MEDICAL CENTER LABORATORY FIO2 Art 40 % [facility] PF Ratio Art [address] [facility] Blood 02/17/2024 4:18 PM EDT 02/17/2024 4:18 PM EDT Hayder Graham MD POINT OF CARE TEST ORDERABLES Performing Organization Address City/State/[facility] Co de Phone Number [facility] [place] [address] * XR Chest One View (02/17/2024 1:44 PM EDT) WORKSTATION ID [id number] RAD Anatomical Region Laterality Modality Chest N/A Digital Radiogra phy Impressions 02/17/2024 2:12 PM EDT 1. ??No definite pleural fluid collection or pneumothorax. 2. ??Right IJ Hazard-Kaila catheter tip terminates in a descending branch of the right pulmonary artery. Suggest catheter retraction. 3. ??Additional support lines and tubes as above. Thank you for letting us participate in the care of this patient. ??If you are a health care provider and have any questions regarding this report, please contact the number below. ??For patients who have questions please contact the health intensive care unit nurse that requested your imaging first. ? Electronically signed by: Denzel Hankins MD, [facility] ??([phone]), at 02/17/2024 2:12 PM Narrative 02/17/2024 2:12 PM EDT EXAMINATION: XR CHEST ONE VIEW CLINICAL HISTORY: s/p avr/cabg eval effusions TECHNIQUE: 1 view of the chest COMPARISON: Chest x-ray 01/09/2024, chest CT 02/03/2024 FINDINGS: ET tube tip terminates 5.2 cm above the carlos. Right IJ Hazard-Kaila catheter tip terminates in a descending branch [...] 5.2 cm above the carlos. Right IJ Hazard-Ganzcatheter tip terminates in a descending branch of [...] fluid collection or pneumothorax. 2. Right IJ Hazard-Kaila catheter tip terminates in a descending branch ofthe right pulmonary artery. Suggest catheter retraction. 3. Additional support lines and tubes as above. Thank you for letting us participate in the care of this patient. If youare a health care provider and have any questions regarding this report,please contact the number below. For patients who have questions please contactthe health intensive care unit nurse that requested your imaging first. Hayder Graham [...] MEDICAL CENTER LABORATORY FIO2 Art 100 % [facility] PF Ratio Art [address] [facility] Blood 02/17/2024 1:31 PM EDT 02/17/2024 1:31 PM EDT Hayder Graham MD POINT OF CARE TEST ORDERABLES Performing Organization Address City/State/[facility] Co de Phone Number [facility] [place] [address] * (ABNORMAL) Coox2 (02/17/2024 1:21 PM EDT) pO2, Coox 44 mmHg [facility] Hgb [...] TEST ORDERABLES [facility] [place] [address] * (ABNORMAL) BLOOD GAS 2 ARTERIAL (02/17/2024 [...] OF CARE TEST ORDERABLES Performing Organization Address [facility] de Phone Number [facility] [place] [address] * (ABNORMAL) Fibrinogen (02/17/2024 12:10 PM EDT) [...] ORDERABLE S Performing Organization Address [facility] Co de Phone Number [facility] [place] [address] * (ABNORMAL) Thrombin time (02/17/2024 12:10 PM [...] ORDERABLE S Performing Organization Address [facility] de Phone Number [facility] [place] [address] * APTT (02/17/2024 12:10 PM EDT) Partial [...] ORDERABLE S Performing Organization Address [facility] de Phone Number [facility] [place] [address] * (ABNORMAL) Prothrombin Time (02/17/2024 12:10 PM [...] ORDERABLE S [facility] [place] [address] * (ABNORMAL) Hemogram (02/17/2024 12:10 PM EDT) [...] MEDICAL CENTER LABORATORY NRBC% auto 0.0 % [facility] NRBC Absolute 0.000 0.000 - 0.000 x10(3)/mc L [facility] Blood 02/17/2024 12:1 0 PM EDT 02/17/2024 12:19 PM EDT Narrative Resulting Agency Comment Spec In Lab Tara York MD HEMATOLOGY ORDERABLE S [facility] [address] [place] [address] * (ABNORMAL) BLOOD GAS 2 ARTERIAL (02/17/2024 [...] MEDICAL CENTER LABORATORY Comment: Noted by instrument engineer. Please [...] TEST ORDERABLES [facility] [place] [address] * (ABNORMAL) BLOOD GAS 2 ARTERIAL (02/17/2024 [...] MEDICAL CENTER LABORATORY Comment: Noted by instrument engineer. Please [...] OF CARE TEST ORDERABLES Performing Organization Address City/[facility]/[place] [address] * (ABNORMAL) Hemoglobin and Hematocrit, blood (02/17/2024 [...] ORDERABL ES [facility] [place] [address] * (ABNORMAL) Platelet count (02/17/2024 11:04 AM EDT) Platelet 106(L) 145 - 357 x10(3)/mc L [facility] Immature Plt % 1.6 0.0 - 7.4 % [facility] Comment: Limitation of the Immature Platelet Fraction (IPF)-May be less reliable when the platelet count is less than 62a444/uL due to statistical imprecision. The IPF value [...] in a decreased state of production. References: [employer] The Clinical Value of the Immature Platelet Fraction (IPF) in Cell Recovery Document Number [id number] 03/2011 [employer] The Role of the Immature Platelet Fraction (IPF) in the Differential Diagnosis of Thrombocytopenia, Document [id number] V002/15/14 P014 Blood 02/17/2024 11:0 4 AM EDT 02/17/2024 11:12 AM EDT Narrative Resulting Agency Comment Spec In Lab Hayder Graham MD HEMATOLOGY ORDERABL ES [facility] [place] [address] * (ABNORMAL) Fibrinogen (02/17/2024 11:04 AM EDT) Pathologist [facility] Fibrinogen 149(L) 200 - 393 mg/dL [facility] [...] ORDERABL ES [facility] [place] [address] * (ABNORMAL) BLOOD GAS 2 ARTERIAL (02/17/2024 [...] City/State/[facility] Co de Phone Number [facility] [place] [address] * (ABNORMAL) BLOOD GAS 2 ARTERIAL (02/17/2024 [...] City/State/[facility] Co de Phone Number [facility] [place] [address] * Surgical Pathology Report (02/17/2024 10:01 AM EDT) Final Diagnosis [id number] ? Location: [facility]; [facility]; The signing pathologist has (i) examined the relevant preparation(s) for the specimen(s) and (ii) rendered or confirmed the diagnosis(es). . ?Surgical Pathology DIAGNOSIS Aortic valve leaflets, excision: Valve leaflets with myxoid degeneration, nodular fibrosis and dystrophic calcifications. Electronically signed by: ?Livier Montoya MD Verified: ??02/24/2024 13:49 ??Pathologist Performed at: ??-[facility] Dept. of Pathology, [place] [address] Switch Adjuster: Job Brewer MD, FCAP, ??CLIA Certificate: [id number] SPECIMEN(S) SUBMITTED A - Aortic Valve Leaflets, [...] Sections Processing Blocks submitted for decalcification: A1. Deputy Chief Executive sections in 1 cassette labeled A1. ??ajw 02/24/2024 1:49 PM EDT [facility] AORTIC STRUCTURE / Unknown 02/17/2024 10:01 AM EDT 02/17/2024 10:01 AM EDT Hayder Graham MD PATHOLOGY/CYTOLOGY ORDERABLES Performing Organization Address City/[facility]/ZIP Co de Phone Number [facility] [place] [address] * Specimen to Pathology (02/17/2024 10:01 AM EDT) AP Specimen 02/17/2024 10:0 1 AM EDT 02/17/2024 10:01 AM EDT Narrative [facility] - 02/17/2024 10:01 AM EDT Specimen requisition ordered. ??Separate Pathology report to follow Hayder Graham MD PATHOLOGY/CYTOLOGY ORDERABLES Performing Organization Address [facility]/ZIP Co de Phone Number [facility] [place] [address] * (ABNORMAL) BLOOD GAS 2 ARTERIAL (02/17/2024 [...] TEST ORDERABLES [facility] [place] [address] * (ABNORMAL) BLOOD GAS 2 VENOUS (02/17/2024 9:34 AM EDT) pH, Venous 7.22(Criti marquez) 7.32 - 7.42 [facility] Comment:Noted by instrument engineer. PCO2, Venous 43 41 - 51 mmHg [facility] Comment:Noted by instrument engineer. PO2, Venous 57(H) 25 - 40 mmHg [facility] Comment:Noted by instrument engineer. Bicarbonate, Venous 17.1 mmol/L [facility] Comment:Noted by instrument engineer. Base Excess, Venous -10.6 mmol/L [facility] Comment:Noted by instrument engineer. Hgb Blood Gas 11.2(L) 13.7 - 16.5 g/dL [facility] Comment:Noted by instrument engineer. Oxyhemoglobin, Venous 86.5 % [facility] Comment:Noted by instrument engineer. Carboxyhemoglob in, Venous 0.3 % [facility] Comment: Noted by instrument engineer. Nonsmokers: 0.5-1.5% COHB Smokers: Variable, but usually less than 10% Toxic: 20-30% COHB Lethal: Greater than 60% COHB Methemoglobin, Venous 0.0 <=1.5 % [facility] Comment:Noted by instrument engineer. Na Whole Blood 156(H) 135 - 145 mmol/L [facility] Comment:Noted by instrument engineer. K Whole Blood 5.5(H) 3.5 - 5.0 mmol/L [facility] Comment: Noted by instrument engineer. Please note: Patients with WBC >100,000 may have falsely elevated Potassium levels. Contact the Clinical Chemistry Laboratory if there are any questions. ICa Whole Blood 1.03(L) 1.15 - 1.33 mmol/L [facility] Comment: Noted by instrument engineer. Note: ??Total bilirubin higher than 20 mg/dL may lead to falsely low ionized calcium. CL Whole Blood 100 98 - 107 mmol/L [facility] Comment:Noted by instrument engineer. Gluc Whole Bld 132 65 - 199 mg/dL [facility] Comment: Noted by instrument engineer. Diabetes: >=200 mg/dL plus symptoms Lactate WB 1.0 0.5 - 2.2 mmol/L [facility] Comment:Noted by instrument engineer. Blood Gas Source Venous [facility] Blood 02/17/2024 9:34 AM EDT 02/17/2024 9:34 AM EDT Hayder Graham MD POINT OF CARE TEST ORDERABLES [facility] [place] [address] * (ABNORMAL) BLOOD GAS 2 ARTERIAL (02/17/2024 [...] TEST ORDERABLES Performing Organization Address [facility] Co de Phone Number [facility] [place] [address] * POCT Glucose (02/17/2024 6:38 AM EDT) Glucose, POC 98 65 - 199 mg/dL [facility] Comment: Supplemental ranges: <140 mg/dL before meals <180 mg/dL all other times of the day Blood 02/17/2024 6:38 AM EDT 02/17/2024 6:38 AM EDT Hayder Graham MD POINT OF CARE TEST ORDERABLES Performing Organization Address [facility] Co de Phone Number [facility] [place] [address] * Transesophageal Echo/OR (02/17/2024 6:33 AM EDT) [...] [facility] post-operative [facility] of cardiac [...] PM Ordering Physician: TARA YORK Referring Physician: APARAN JORDAN Tara York MD ECHO ORDERABLES * [...] 6 hours upon arrival to Unit. Give DC if unable to take PO, Routine Given [...] dose on Sat02/17/24 at 1400, Until Discontinued, [place] teeth and / or gums. Scan the CHG vial in the [employer] Q-Care Oral Care Kit from floor stock. Ventilator-associated pneumonia prophylaxis For use in ICU/Critical care locations ONLY. Obtain kit from Floor Stock location. Scan CHG vial in the [employer] Q-Care Oral Care Kit, Routine Given 02/17/2024 [...] restart at 50% of previous rate. Call boiling house oiler if goal not achieved at maximum rate. [...] PHENYLephrine and/or vasopressin ineffective. Call pager # [phone] if initiated. Titrate to keep systolic blood [...] 2.0 L/min/M2. Maximum volume 2 L. Call boiling house oiler for additional fluid orders: pager #[phone]. Rate/Dose Verify 02/18/2024 8:00 AM EDT 1 mL/hr 1 mL/hr Rate/Dose Verify 02/18/2024 6:00 AM EDT 1 mL/hr 1 mL/hr Rate/Dose Verify 02/18/2024 4:00 AM EDT 1 mL/hr 1 mL/hr sodium chloride 0.9% infusion 10-30 mL/hr, Intravenous, DAILY PRN, Starting on Sat02/17/24 at 1307, Until Sat02/18/24 at 0835, Side port TKO rate, per [facility] nursing protocol. Rate/Dose Verify 02/17/2024 8:00 PM EDT 30 mL/hr 30 mL/hr Rate/Dose Verify 02/17/2024 6:00 PM EDT 30 mL/hr 30 mL/h r Rate/Dose Verify 02/17/2024 5:00 PM EDT 30 mL/hr 30 mL/h r sodium chloride 0.9% infusion 10-30 mL/hr, Intravenous, DAILY PRN, Starting on Sat02/17/24 at 1307, Until Sat02/18/24 at 0835, Side port TKO rate, per [facility] nrusing protocol. Rate/Dose Verify 02/18/2024 8:00 AM [...] documented in this encounter Care Teams Customer Manager Relationship Specialty Start Date End Date Aparna Jordan APRN PCP - General Family Medicine 10/21/23 05/26/24 documented as of this encounter
--- OUTSIDE RECORDS SUMMARY | 2024-06-12 08:27 | XMS_ITS | Encounter Summary ---
Author Organization [facility] Address [facility] [place] [address] Care Team Providers Care Equipment Analyst Name Role Phone Vanessa Christian MAURI Primary Care Provider [phone] Encounter Details Date Type Department Care Team (Late st Contact Info) Description 02/14/2024 [place] [id number] Zak Farmer MD [facility] [place] [address] Coronary artery disease, unspecified vessel or lesion type, unspecified whether angina present, unspecified whether g[place] or transplanted heart (Primary Dx) Social History [...] PM EST Office Visit Cardiology at [address] [place] [id number] Neftali Ernandez MD [facility] [place]OLOGY [place], [place] [id number] documented as of this encounter Results * EKG 12 Lead (03/12/2024 2:35 PM EDT) Ventricular rate 59 BPM MUSE SYSTEM Atrial Rate 59 BPM MUSE SYSTEM P-R Interval 190 ms MUSE SYSTEM QRS Duration 92 ms MUSE SYSTEM Q-T Interval 406 ms MUSE SYSTEM QTC Calculated (Bezet) 401 ms MUSE SYSTEM Calculated P [place] -12 degrees MUSE SYSTEM Calculated R [place] 24 degrees MUSE SYSTEM Calculated T [place] 74 degrees MUSE SYSTEM INTERPRETATION Sinus bradycardia T wave abnormality, consider anterior ischemia Abnormal ECG When compared with ECG of 17-FEB-2024 13:24, OK interval has decreased T wave inversion now evident in Anterior leads Confirmed by Paul Guzman ([id number]) on 03/15/2024 8:36:23 AM MUSE SYSTEM 03/12/2024 2:35 PM EDT 03/15/2024 8:36 AM EDT Zak Farmer MD ECG ORDERABLES MUSE SYSTEM * XR Chest PA & Lateral (Generic) (03/12/2024 1:42 PM EDT) WORKSTATION ID [id number] RAD Anatomical Region Laterality Modality Chest N/A [...] eval effusions I25.10, Atherosclerotic heart disease of [place] coronary artery without angina pectoris TECHNIQUE: PA [...] eval effusions I25.10, Atherosclerotic heart disease of [place] coronary artery withoutangina pectoris TECHNIQUE: PA and [...] type, unspecified whether angina present, unspecified whether [place] or transplanted heart- Primary Coronary artery disease, unspecified vessel or lesion type, unspecified whether angina present, unspecified whether [place] or transplanted heart documented in this encounter Care Teams Equipment Analyst Relationship Specialty Start Date End Date Vanessa Christian APRN PCP - General Family Medicine 10/21/23 05/26/24 documented as of this encounter
--- OUTSIDE RECORDS SUMMARY | 2024-06-12 08:27 | XMS_ITS | Encounter Summary ---
Author Organization [facility] [place] [address] Care Team Providers Care Head Of Integrated Media Name Role Phone Vanessa Christian MAURI Primary Care Provider [phone] Reason for Visit * Auth/Cert (Routine) Specialty [...] ARTERIAL GRAFT (WRVU 7.93) Zak Farmer MD [facility] [place] [address] [facility] Referral ID Status Reason Start Date Expiration Date Visits Re quested Visits Authorized [id number] 1 1 Encounter Details Date Type Department Care Team (Late st Contact Info) Description 02/17/2024 7:35 AM EDT Anesthesia Event Main Operating Room [facility] [place] [phone] Roman York MD [facility] [place] [address] Anesthesia Record Procedure Summary Procedure Name Responsible [...] by Sadiq Woo RN PIV 02/17/24; 0715; [id number] catheter system; 18 gauge; cephalic vein (lateral [...] = 0.6 oz pur e alcohol) rare [facility] Utilities Answer Date Recorded In the past 12 months has th e electric, gas, oil, or water [employer] threatened to shut off services in your [...] Procedure Summary Date: 02/17/24 Room / Location: [facility] OR [address] [place] [address] MAIN OR Anesthesia Start: 734 Anesthesia Stop: [...] Patient Location: [facility] Level of Consciousness: Sedated (Pharmacologic/Intentional) Pain Management: [...] 08/14/2023 ??? Nevus of face 09/26/2023 Right christian No past surgical history on file. Social [...] PM EST Office Visit Cardiology at [address] [place] [address] Neftali Ernandez MD [facility] [place] [address] documented as of this encounter [...] mg documented in this encounter Care Teams Head Of Integrated Media Relationship Specialty Start Date End Date Vanessa Christian APRN PCP - General Family Medicine 10/21/23 05/26/24 documented as of this encounter
--- OUTSIDE RECORDS SUMMARY | 2024-06-12 08:27 | XMS_ITS | Encounter Summary ---
[place] [address] Care Team Providers Care Professional Skateboarder Name Role Phone Vanessa Christian Lane DOTSON Primary Care Provider [phone] Reason for Referral * Diagnostic Test (Routine) - Closed Specialty Diagnoses / Procedures Referred By Contac t Referred To Contact Radiology Diagnoses Nonrheumatic aortic valve stenosis Procedures CT Chest wo Contrast (Generic) Louisa Cho PA [facility] [place] [address] [facility] [place] [address] Referral ID Status Reason Start Date Expiration Date V isits Requested Visits Authorized [id number] Closed Specialty Service Requested 01/10/2024 07/11/2025 1 1 Reason for Visit * Diagnostic Test (Routine) - Closed Specialty Diagnoses / Procedures Referred By Contac t Referred To Contact Radiology Diagnoses Nonrheumatic aortic valve stenosis Procedures CT Chest wo Contrast (Generic) Louisa Cho PA [facility] [place] [address] [facility] [place] [address] Referral ID Status Reason Start Date Expiration Date V isits Requested Visits Authorized [id number] Closed Specialty Service Requested 01/10/2024 07/11/2025 1 1 Encounter Details Date Type Department Care Team (Latest Contact Info) Description 02/03/2024 7:36 AM EDT - 02/03/2024 8:05 AM EDT Hospital Encounter CT Scan at [facility] [place] [address] Zak Farmer MD [facility] [place] [address] Nonrheumatic aortic valve stenosis Discharge Disposition: Home Social History Tobacco Use Types Packs/Day Years Used Date Smoking Tobacco: Former Cigarettes Smokeless Tobacco: Never Comments:Quit 15 + years ago Alcohol Use Standard Drinks/Week Comments Yes 0 (1 standard drink = 0.6 oz pur e alcohol) rare [facility] Inpatient Questions Answer Date Recorded Does [...] 3:00 PM EST Office Visit Cardiology at [address] [place] [address] Neftali Ernandez MD [facility] [place] [address] documented as of this encounter Procedures Procedure Name Priority Date/Time Associated Diagnosis Comments CT CHEST WO CONTRAST (GENERIC) Routine 02/03/2024 7:44 AM EDT Nonrheumatic aortic valve stenosis documented in this encounter Results * CT Chest wo Contrast (Generic) (02/03/2024 7:44 AM EDT) [employer] WORKSTATION ID [id number] DH RAD Anatomical Region Laterality Modality Chest [...] questions please contact the health day care attendant that requested your imaging first. ? Electronically signed by: Rogerio Wright MD, [facility] ([phone]), at 02/03/2024 10:00 AM Narrative 02/03/2024 10:00 [...] nodule along the minor fissure (series 302 [id number]) and a 8 mm right lower lobe [...] have questions please contactthe health day care attendant that requested your imaging first. Electronically signed by: Rogerio Wright MD, [facility]([phone]), at 02/03/2024 10:00 AM aZk Farmer MD IMG CT ORDERABLES documented in this encounter Visit Diagnoses Diagnosis Nonrheumatic aortic valve stenosis Aortic valve disorders documented in this encounter Care Teams Professional Skateboarder Relationship Specialty Start Date End Date Vanessa Christian APRN PCP - General Family Medicine 10/21/23 05/26/24 documented as of this encounter
--- OUTSIDE RECORDS SUMMARY | 2024-06-12 08:27 | XMS_ITS | Encounter Summary ---
[place] [address] Care Team Providers Care Squirt Machine Operator Name Role Phone Aparna Jordan MAURI Primary Care Provider [phone] Reason for Visit * Auth/Cert (Routine) Specialty [...] ARTERIAL GRAFT (WRVU 7.93) Hayder Graham MD [facility] [place] [address] [facility] Referral ID Status Reason Start Date Expiration Date Visits Re quested Visits Authorized [id number] 1 1 Encounter Details Date Type Department Care Team (Late st Contact Info) Description 02/17/2024 7:30 AM EDT - 02/17/2024 1:26 PM EDT Surgery [place] [id number] Hayder Graham MD [facility] [place] [address] ENDOSCOPIC HARVEST VEIN(S) FOR CABG (WRVU 0.31) [...] Patient Age: 63 y.o. Birthdate: 1960 Language: Japanese Race: White Ethnicity: Not nor Admit Date: 02/17/2024 Discharge Date: 02/24/24 Attending Physician: Hayder Graham MD Follow-up Recommendations for Providers: Please continue routine management of cardiovascular risk factors including blood pressure, lipids,glucose, etc. Please note any changes to medications. Patient to follow up with PCP, Aparna Jordan APRN, in 1-2 weeks. Patient to follow up with Egg Sorter, Neftali Ernandez MD , in 2 weeks. Patient to follow up with Cardiac Surgeon, Dr. Hayder Graham, with a chest x-ray, EKG, and Echo. 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 MAIN OR PRO CABG, ARTERY-VEIN, TWO N/A 02/17/2024 @CABG, TWO VENOUS GRAFTS & ARTERIAL GRAFT (WRVU 7.93) performed by Hayder Graham MD at [facility] MAIN OR PRO ENDOSCOPY W/VIDEO-ASST VEIN HARVEST, CABG Left 02/17/2024 ENDOSCOPIC HARVEST VEIN(S) FOR CABG (WRVU 0.31) performed by Hayder Graham MD at [facility] MAIN OR PRO REPLACEMENT PROSTHETIC AORTIC VALVE OPEN W CARDIOPULMONARY BYPASS HOMOGRF/STENT N/A 02/17/2024 @REPLACE AORTIC VALVE, OPEN, W\CPB, W\PROSTHETIC VALVE (WRVU 41.32) performed by Hayder Graham MD at [facility] MAIN OR Prior To Admission Medications [...] insufficiency. He has glaucoma. He used to bacAt [place] until about 15 years ago. He has undergone prior herniorrhaphy. 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 Major Procedures/Operations: 02/17/24 s/p avr/cabgx3 CABG x 3 JOSE->LAD SVG->dRCA SVG->OM1 EVH from LLE AVR with a 23 mm Inspiris Bioprosthesis Hospital Course: Karlos Garcia was admitted to [facility] on 02/17/2024 via the Same Day Program. [...] Hayder Graham and/or the Cardiac Surgery Physician Formula Technician Team may be reached at . [...] Please refer to the card with the [place] [employer] Guidelines for more information. You [...] Dr. Hayder Graham. You may use a [place] Track or treadmill but avoid any pulling [...] friends, go to a movie, go to latter-day, etc. Heavy activities: No hunting, skiing, jogging, [...] should resume a low fat, low cholesterol, [place] [employer] Diet. Driving: No driving until [...] while being managed by your PCP and/or Egg Sorter. For future medication refills, please refer to your PCP and/or Egg Sorter after your discharge from our service. Thank you REMOVE CHEST TUBE SUTURES ON OR AFTER 03/02/24 Home oxygen therapy: N/A Follow up appointments: You should follow up with your PCP, Aparna Jordan APRN, in 1-2 weeks. Our office will schedule an appointment with your Egg Sorter, Neftali Ernandez MD , in 2 weeks. You have an appointment with your Cardiac Surgeon, Dr. Hayder Graham, 4 weeks with a chest x-ray, EKG, and Echo before your appointment. Cardiac Rehabilitation: Karlos Garcia was seen regarding participation in the outpatient Phase 2Cardiac Rehabilitation at [facility]. The patient agrees to a referral to this program. The referral will be sent at discharge and the patient should be contacted by the Program within 1- 2 weeks from discharge. Future Appointments and Orders Future Orders Complete By Expires Echocardiogram Transthoracic [92152 CPT(R)] 03/26/2024 09/25/2024 Process Instructions: Scheduling Instructions: Questions: Where will study be performed?: [facility] Clinics Does the patient have Congenital Heart Disease?: Does patient require sedation?: Sedation rationale: XR Chest PA & Lateral (Generic) [74418 96258 Custom] 03/26/2024 09/25/2024 Process Instructions: Scheduling Instructions: Questions: Portable exam?: Reason for exam and clinical history: s/p avr/cabg Clinical information / jerome questions for radiologist: Stat read required?: Date of injury if applicable: Requested Time: Where will study be performed?: [facility] Radiology Referral to Cardiac Rehab [[id number] Custom] As directed Process Instructions: If no progress note charted, please enter Clinical details in comments. Scheduling Instructions: Questions: My question or request is: s/p AVR/CABG. Cardiac rehab at [facility]. Referral to Home Health [REF34 Custom] As directed Process Instructions: If no progress note charted, please enter Clinical details in comments. Scheduling Instructions: Comments: Please evaluate Karlos Garcia for admission to Home Health. [address] Phone Number: Date of : 1960 Inpatient DOCUMENTATION FOR VNA SERVICES (INCLUDING THOSE PATIENTS WITH MEDICARE COVERAGE REQUIRING HOME VNA SERVICES AND/OR HOSPICE SERVICES) PATIENT'S LOCATION: Karlos Garcia [address] [place] [phone] Riddler Operator's Name: self/family In discussion with the attending physician, it is certified that this patient is under their care and that they, or a Nurse Practitioner, or Physician Formula Technician who is working directly with them, [...] for services as follows: HOME HEALTH AGENCY: [facility] [address] [place] [address] RN orders: Cardiopulmonary assessment, incisional assessment, assess [...] issues please call the Cardiology Office at [phone] FOR MEDICARE ONLY: (please delete this section [...] care: As above. Signed: NEFTALI MENON PA-C [facility] Section of Cardiac Surgery [facility] [address] FAX [phone] Date: 02/24/2024 CC: Aparna Jordan, MAURI Jordan, Aparna Sherman APRN [address] [place] [address] documented in this encounter Discharge Instructions * [...] Hayder Graham and/or the Cardiac Surgery Physician Formula Technician Team may be reached at . [...] Please refer to the card with the [place] Heart [employer] Guidelines for more information. You [...] Dr. Hayder Graham. You may use a [place] Track or treadmill but avoid any pulling [...] friends, go to a movie, go to latter-day, etc. Heavy activities: No hunting, skiing, jogging, [...] should resume a low fat, low cholesterol, [place] Heart [employer] Diet. Driving: No driving until [...] while being managed by your PCP and/or Egg Sorter. For future medication refills, please refer to your PCP and/or Egg Sorter after your discharge from our service. Thank you REMOVE CHEST TUBE SUTURES ON OR AFTER 03/02/24 Home oxygen therapy: N/A Follow up appointments: You should follow up with your PCP, Aparna Jordan APRN, in 1-2 weeks. Our office will schedule an appointment with your Egg Sorter, Neftali Ernandez MD , in 2 weeks. You have an appointment with your Cardiac Surgeon, Dr. Hayder Graham, 4 weeks with a chest x-ray, EKG, and Echo before your appointment. Cardiac Rehabilitation: Karlos Garcia was seen regarding participation in the outpatient Phase 2Cardiac Rehabilitation at [facility]. The patient agrees to a [...] 0600 and on the weekends please page [phone]. * Eric Barahona PA - 02/23/2024 9:27 [...] 0600 and on the weekends please page [phone]. * Tiffanie Owens - 02/22/2024 2:48 PM [...] Pt reports his dtr is coming from [place] to stay upon d/c for 10 days. 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 He drives. He works Precautions/Special Considerations: STERNAL [...] LRAD and supervision Time IN / OUT: 4252-7687 Total Time: 30 minutes; TEFx2 Tiffanie Owens Pager: [phone] Physical Therapy Inpatient Rehabilitation Department * Romeo [...] 0600 and on the weekends please page [phone]. * Kelley Hinson GIZZARD PULLER - 02/21/2024 10:15 AM EDT Physical Therapy [...] Pt reports his dtr is coming from [place] to stay upon d/c for 10 days. 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 He drives. He works Precautions/Special Considerations: STERNAL [...] LRAD and supervision Time IN / OUT: 3163-4873 Total Time: 25 minutes; TEF 2 Kelley Hinson PTA Pager: [phone] Physical Therapy Inpatient Rehabilitation Department * Louisa [...] 0600 and on the weekends please page [phone]. * Kelley Hinson PTA - 02/20/2024 3:32 [...] at that time Kelley Hinson PTA Pager: [phone] Physical Therapy Inpatient Rehab Department * Louisa [...] 0600 and on the weekends please page [phone]. * Maris Benavides, PT - 02/19/2024 11:22 [...] Pt reports his dtr is coming from [place] to stay upon d/c for 10 days. 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 He drives. He works. Precautions/Special Considerations: STERNAL [...] outlined inthis evaluation. MARIS BENAVIDES, PT Pager: [phone] Physical Therapy Inpatient Rehabilitation Department Time IN / OUT: 6049-4989 Total Time: 38 (eval) minutes; * Antonio [...] 0600 and on the weekends please page [phone]. * Minnie Begum PA - 02/18/2024 8:25 [...] 0600 and on the weekends please page [phone]. * Kim Ha MILL ORDER SCHEDULER - 02/17/2024 2:25 PM EDT Respiratory [...] plan since last visit. Hayder Graham MD [phone] Source Note - Hayder Graham MD - [...] given written informed consent. Hayder Graham MD [phone] * Hayder Graham MD - 02/17/2024 7:00 [...] given written informed consent. Hayder Graham MD [phone] documented in this encounter Miscellaneous Notes * [...] information for follow-up Home Health & Hospice, [address] [place] [address] Cardiac Rehab, [address] [place] [address] Transportation: family or friend will provide Functional status prior to admission: Independent Home Environment: Others in the home: alone. Current Living Arrangements: home/apartment/condo. Accessibility Concerns:a few steps to enter 1 floor home. Current Functional Ability: Assistive Person and Equipment DME used at home: none DME Needed at Discharge: N/A Patient is insured through: Primary Insurance: [place] [employer] Payor: [facility] / Plan: [facility] PPO / Product Type: *No Product type* [...] pain managed with scheduled Tylenol. Worked with [employer]. Ambulated in the roque multiple times during [...] HOSPITAL Payor: [facility] / Plan: [facility] PPO / Product Type: *No Product type* / Secondary Insurance: N/A Last Physical Therapy Recommendation: home with home health (Str coming to stay for a week or two upon d/c) with to be determined (owns rolling walker, shower seat) Plan for discharge is: Home w/ Services Outpatient Agency/Support Group Needs: Homecare agency Home Health Services: Physical Therapy, Registered Nurse Agency Referrals: [facility]. [address] [place] [address] Transportation: family or friend will provide Barriers to discharge: Discharge planning Plan going forward: Service Care Management will continue to follow and assist with discharge planning and coordination of care as indicated. Anticipated Date of Discharge: 02/22/2024 Rhett Bell RN RN/CM - Cellphone: [phone] Pager: [phone] Covering Service RN/CM * Plan of Care [...] RN - 02/19/2024 10:44 AM EDT [facility] CARDIAC REHABILITATION Karlos Garcia was seen today regarding participation in the outpatient Phase 2 Cardiac Rehabilitation at [facility]. 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 (Only good for 180 days) Any patient receiving care in [place] must abide by ID law. The hierarchy for surrogate decision making [...] (i) The agent with financial power of real estate associate attorney or a conservator appointed in [...] In the past 12 months has the [place], gas, oil, or water [place] threatened to shut off services in your [...] as: [address] [facility] [address] Physical address: [address] [facility], [address] Social & Family Supports: All names listed [...] HOSPITAL Payor: [facility] / Plan: [facility] PPO / Product Type: *No Product type* / Secondary Insurance: N/A ; Prescription Coverage: Yes Preferred Pharmacy: [id number] [address] Colon Status: Patient is a : No Primary Care Provider confirmed: Aparna Jordan APRN [phone] Patient/Caregiver Goals of Treatment: dc to home Potential Needs for Transition of Care: home health care Agency Referrals: I have met with the patient to: discuss discharge planning needs. provide the [facility], Office of Care Management letter from the Clinical Account Executive pertaining to rehab referrals. provide a letter describing our affiliations within the [facility] and educate about their right to choose where referrals are sent. provide a list of Home Health Agencies / Durable Medical Equipment vendors which serve their preferred geographic area. provided patient with [facility] Star Quality Rating handout. They have requested referrals to: [facility] [address] [place] [address] Note routed to a Special Library Librarian who will communicate referrals to facilities and [...] daughter, Cielo, will be coming in from [place] on 02/18, to stay with him , [...] Reina Greene RN CM, BSN, CMGT- Ext [phone] * Plan of Care - Binta Trinidad [...] Operative Note Patient Name: Karlos Garcia : [id number] MR#: [id number] Case Date: 02/17/2024 Surgeon: Surgeon(s) and Role: * Hayder Graham MD - Primary * Neftali Menon PA - Physician Formula Technician Preoperative diagnosis: CAD Postoperative diagnosis: CAD, [...] MD - 02/17/2024 8:20 AM EDT [facility] Operative Note Patient Name: Karlos Garcia : [id number] MR#: [id number] Case Date: 02/17/2024 Surgeon: Surgeons and Role: * Hayder Graham MD - Primary * Neftali Menon PA - Physician Formula Technician Preoperative diagnosis: CAD Postoperative diagnosis: CAD, [...] 3:00 PM EST Office Visit Cardiology at [address] [address] Neftali Ernandez MD [facility] [address] Scheduled Orders Name Type Priority Associated Diagnoses [...] Aortic Valve Open W Cardiopulmonary Bypass Homogrf/Stent (08217) Yes 02/17/2024 7:28 AM EDT CAD Cabg, Artery-Vein, Two (02751) Yes 02/17/2024 7:28 AM EDT CAD Cabg, Arterial, Single (34029) Yes 02/17/2024 7:28 AM EDT CAD Endoscopy W/Video-Asst Vein [place], Cabg (35946) Yes 02/17/2024 7:28 AM EDT CAD POCT [...] ORDERABLE S [facility] [place] [address] * (ABNORMAL) Basic Metabolic Panel (non-fasting) (02/23/2024 [...] CHEMISTRY ORDERABLES [facility] [place] [address] * Potassium (02/22/2024 4:30 AM EDT) Potassium [...] ORDERABLE S [facility] [place] [address] * (ABNORMAL) Basic Metabolic Panel (non-fasting) (02/21/2024 [...] [facility] Comment:Add-on request. Yolanda le [...] CHEMISTRY ORDERABLES [facility] [place] [address] * Lactate, whole blood, send to lab ([facility]) (02/21/2024 9:45 AM EDT) [facility] Lactate WB 2.0 0.5 - 2.2 mmol/L [facility] Blood 02/21/2024 9:45 AM EDT 02/21/2024 9:52 AM EDT Narrative Resulting Agency Comment Spec In Lab Hayder Graham MD CHEMISTRY ORDERABLE S Performing Organization Address [facility] Co de Phone Number [facility] [place] [address] * (ABNORMAL) Hepatic Function Panel (02/21/2024 9:45 AM EDT) [facility] Protein, Total 5.7(L) 6.1 - 8.0 g/dL [...] ORDERABLE S [facility] [place] [address] * Lipase (02/21/2024 9:45 AM EDT) Lipase 56 0 - 60 unit/L [facility] Blood 02/21/2024 9:45 AM EDT 02/21/2024 9:52 AM EDT Narrative Resulting Agency Comment Spec In Lab Hayder Graham MD CHEMISTRY ORDERABLE S [facility] [place] [address] * Amylase (02/21/2024 9:45 AM EDT) Amylase 69 28 - 100 unit/L [facility] Blood 02/21/2024 9:45 AM EDT 02/21/2024 9:52 AM EDT Narrative Resulting Agency Comment Spec In Lab Hayder Graham MD CHEMISTRY ORDERABLE S Performing Organization Address City/[facility]/ZIP Co de Phone Number [facility] [place] [address] * Potassium (02/21/2024 3:08 AM EDT) Potassium [...] ORDERABLE S [facility] [place] [address] * XR Chest PA & Lateral (Generic) (02/20/2024 10:19 AM EDT) WORKSTATION ID [id number] RAD Anatomical Region Laterality Modality Chest N/A [...] signed by: Rogerio Cruz MD, [facility] ??([phone]), at 02/20/2024 1:11 PM Narrative 02/20/2024 1:11 PM EDT EXAMINATION: XR CHEST PA AND LATERAL (GENERIC) CLINICAL HISTORY: s/p AVR/CABGx3 TECHNIQUE: PA and lateral views of the chest COMPARISON: 02/17/2024 FINDINGS: Support devices: Interval removal of Makanda-Kaila catheter, endotracheal tube and mediastinal chest tubes The cardiac silhouette is stable status post median sternotomy, CABG and aortic valve replacement. There are small pleural effusions. No pneumothorax. Procedure Note Rogerio Cruz MD - 02/20/2024 EXAMINATION: XR CHEST PA AND LATERAL (GENERIC) CLINICAL HISTORY: s/p AVR/CABGx3 TECHNIQUE: PA and lateral views of the chest COMPARISON: 02/17/2024 FINDINGS: Support devices: Interval removal of Makanda-Kaila catheter, endotracheal tubeand mediastinal chest tubes The [...] care pediatrician that requested your imaging first. Hayder Graham MD IMG DX ORDERABLES * Scan, Peripheral Blood (02/20/2024 4:23 AM EDT) Pathologist [facility] Plat estimate Decreased [facility] RBC Morphology Normal [facility] Blood 02/20/2024 4:23 AM EDT 02/20/2024 4:42 AM EDT Narrative Resulting Agency Comment Spec In Lab Minnie FRENCH HEMATOLOGY CECILIO ALEMAN [facility] [place] [phone] * (ABNORMAL) Differential, Automated (02/20/2024 4:23 AM EDT) [facility] Neutrophil % 81.7 % [facility] Neutrophil Absolute 10.37(H) 1.70 - 6.10 x10(3)/mc L [facility] Lymph % 7.4 % [facility] Lymphocytes Abs 0.9 0.9 - 3.2 x10(3)/mc L [facility] Monocyte % 9.7 % [facility] Monocyte Abs 1.2(H) 0.3 - 0.9 x10(3)/mc L [facility] Eos % 0.1 % [facility] Eosinophils Abs 0.0 0.0 - 0.4 x10(3)/mc L [facility] Basophil % 0.2 % [facility] Baso Absolute 0.0 0.0 - 0.1 x10(3)/mc L [facility] Immature Gran % 0.90 % [facility] [...] CECILIO ALEMAN [facility] [place] [address] * (ABNORMAL) Hemogram (02/20/2024 4:23 AM EDT) White Blood Cell 12.7(H) 4.0 - 9.5 x10(3)/ L [facility] [...] Platelet 88(L) 145 - 357 x10(3)/ L [facility] RDW [...] CECILIO ALEMAN [facility] [place] [address] * (ABNORMAL) Basic Metabolic Panel (non-fasting) (02/20/2024 4:23 AM EDT) Glucose 113 65 - 199 mg/dL [facility] Comment:Diabetes: >=200 mg/d L plus symptoms Blood Urea Nitrogen 20 10 - 20 mg/dL [facility] Comment:result rechecked-OR Creatinine 0.71(L) 0.80 - 1.50 mg/dL [facility] [...] MD CHEMISTRY ORDERABLE S Performing Organization Address [facility] Co de Phone Number [facility] [place] [address] * Potassium (02/19/2024 3:57 AM EDT) Potassium [...] MD CHEMISTRY ORDERABLE S Performing Organization Address [facility]/ZIP Co de Phone Number [facility] [place] [address] * POCT Glucose (02/18/2024 8:24 AM EDT) Glucose, POC 157 65 - 199 mg/dL [facility] Comment: Supplemental ranges: <140 mg/dL before meals <180 mg/dL all other times of the day Blood 02/18/2024 8:24 AM EDT 02/18/2024 8:24 AM EDT Hayder Graham MD POINT OF CARE TEST ORDERABLES Performing Organization Address City/[facility]/ZIP Co de Phone Number [facility] [place] [address] * Scan, Peripheral Blood (02/18/2024 1:40 AM EDT) Plat estimate Decreased [facility] RBC Morphology Normal [facility] Blood 02/18/2024 1:40 AM EDT 02/18/2024 1:56 AM EDT Narrative Resulting Agency Comment Spec In Lab Neftali FRENCH HEMATOLOGY ORDER OLE Performing Organization Address City/[facility] Co de Phone Number [facility] [place] [address] * (ABNORMAL) Differential, Automated (02/18/2024 1:40 AM EDT) [facility] Neutrophil % 87.1 % [facility] Neutrophil Absolute 15.03(H) 1.70 - 6.10 x10(3)/mc L [facility] Lymph % 3.0 % [facility] Lymphocytes Abs 0.5(L) 0.9 - 3.2 x10(3)/mc L [facility] Monocyte % 9.1 % [facility] Monocyte Abs 1.6(H) 0.3 - 0.9 x10(3)/mc L [facility] Eos % 0.0 % [facility] Eosinophils Abs 0.0 0.0 - 0.4 x10(3)/mc L [facility] Basophil % 0.2 % [facility] Baso Absolute [...] Absolute 0.10(H) 0.00 - 0.04 x10(3)/mc L [facility] Blood 02/18/2024 1:40 AM EDT 02/18/2024 1:56 AM EDT Narrative Resulting Agency Comment Spec In Lab Neftali FRENCH HEMATOLOGY ORDER OLE [facility] [place] [address] * (ABNORMAL) Hemogram (02/18/2024 1:40 AM EDT) White Blood Cell 17.2(H) 4.0 - 9.5 x10(3)/mc L [facility] [...] RDW Standard Deviation 39.9 36.0 - 45.0 [facility] LABORATORY RDW coefficient of [...] ORDER OLE [facility] [place] [address] * (ABNORMAL) Basic Metabolic Panel (non-fasting) (02/18/2024 [...] ORDERABLE S [facility] [place] [address] * (ABNORMAL) Troponin (02/18/2024 1:40 AM EDT) Pathologist [facility] Troponin-T, High Sensitivity 342(H) <=22 ng/L [place] [...] can be found in the [facility] Test Catalog Troponin - [facility] Test Catalog Reference: Fourth Dolliver Definition of Myocardial Infarction. Journal of the [place] [employer] 2018;72:2647-6918 Blood 02/18/2024 1:40 AM EDT 02/18/2024 1:56 AM EDT Narrative Resulting Agency Comment Spec In Lab Hayder Graham MD CHEMISTRY ORDERABLE S Performing Organization Address [facility] Co de Phone Number [facility] [place] [address] * POCT Glucose (02/17/2024 8:13 PM EDT) Glucose, POC 142 65 - 199 mg/dL [facility] Comment: Supplemental ranges: <140 mg/dL before meals <180 mg/dL all other times of the day Blood 02/17/2024 8:13 PM EDT 02/17/2024 8:13 PM EDT Hayder Graham MD POINT OF CARE TEST ORDERABLES Performing Organization Address [facility] de Phone Number [facility] [place] [address] * POCT Glucose (02/17/2024 5:42 PM EDT) Glucose, POC 160 65 - 199 mg/dL [facility] Comment: Supplemental ranges: <140 mg/dL before meals <180 mg/dL all other times of the day Blood 02/17/2024 5:42 PM EDT 02/17/2024 5:42 PM EDT Hayder Graham MD POINT OF CARE TEST ORDERABLES Performing Organization Address [facility] Co de Phone Number [facility] [place] [address] * Hemoglobin (02/17/2024 5:42 PM EDT) Hemoglobin 13.7 13.7 - 16.5 g/dL [facility] Blood 02/17/2024 5:42 PM EDT 02/17/2024 6:10 PM EDT Narrative Resulting Agency Comment Spec In Lab Hayder Graham MD HEMATOLOGY ORDERABL ES Performing Organization Address [facility]/ZIP Co de Phone Number [facility] [place] [address] * Potassium (02/17/2024 5:42 PM EDT) Pathologist [facility] Potassium 4.3 3.5 - 5.0 mmol/L [place] [...] MD CHEMISTRY ORDERABLE S Performing Organization Address [facility] Co de Phone Number [facility] [place] [address] * (ABNORMAL) BLOOD GAS 2 ARTERIAL (02/17/2024 [...] MEDICAL CENTER LABORATORY FIO2 Art 40 % [facility] PF Ratio Art [address] [facility] Blood 02/17/2024 4:18 PM EDT 02/17/2024 4:18 PM EDT Hayder Graham MD POINT OF CARE TEST ORDERABLES Performing Organization Address City/State/[facility] Co de Phone Number [facility] [place] [address] * XR Chest One View (02/17/2024 1:44 PM EDT) Vitrina WORKSTATION ID [id number] RAD Anatomical Region Laterality Modality Chest N/A Digital Radiogra phy Impressions 02/17/2024 2:12 PM EDT 1. ??No definite pleural fluid collection or pneumothorax. 2. ??Right IJ Makanda-Kaila catheter tip terminates in a descending branch [...] signed by: Denzel Hankins MD, [facility] ??([phone]), at 02/17/2024 2:12 PM Narrative 02/17/2024 2:12 PM EDT EXAMINATION: XR CHEST ONE VIEW CLINICAL HISTORY: s/p avr/cabg eval effusions TECHNIQUE: 1 view of the chest COMPARISON: Chest x-ray 01/09/2024, chest CT 02/03/2024 FINDINGS: ET tube tip terminates 5.2 cm above the carlos. Right IJ Makanda-Kaila catheter tip terminates in a descending branch [...] 5.2 cm above the carlos. Right IJ Makanda-Ganzcatheter tip terminates in a descending branch of [...] fluid collection or pneumothorax. 2. Right IJ Makanda-Kaila catheter tip terminates in a descending branch [...] signed by: Denzel Hankins MD, [facility]([phone]), at 02/17/2024 2:12 PM Hayder Graham MD [...] MEDICAL CENTER LABORATORY FIO2 Art 100 % [facility] PF Ratio Art 320 [facility] Blood 02/17/2024 1:31 PM EDT 02/17/2024 1:31 PM EDT Hayder Graham MD POINT OF CARE TEST ORDERABLES [facility] [place] [address] * (ABNORMAL) Coox2 (02/17/2024 1:21 PM EDT) [...] TEST ORDERABLES [facility] [place] [address] * (ABNORMAL) BLOOD GAS 2 ARTERIAL (02/17/2024 [...] OF CARE TEST ORDERABLES Performing Organization Address [facility] Co de Phone Number [facility] [place] [address] * (ABNORMAL) Fibrinogen (02/17/2024 12:10 PM EDT) [...] MD HEMATOLOGY ORDERABLE S Performing Organization Address [facility] Co de Phone Number [facility] [place] [address] * (ABNORMAL) Thrombin time (02/17/2024 12:10 PM [...] MD HEMATOLOGY ORDERABLE S Performing Organization Address [facility] Co de Phone Number [facility] [place] [address] * APTT (02/17/2024 12:10 PM EDT) Partial [...] MD HEMATOLOGY ORDERABLE S Performing Organization Address [facility]/ZIP Co de Phone Number [facility] [place] [address] * (ABNORMAL) Prothrombin Time (02/17/2024 12:10 PM [...] ORDERABLE S [facility] [place] [address] * (ABNORMAL) Hemogram (02/17/2024 12:10 PM EDT) [...] ORDERABLE S [facility] [place] [address] * (ABNORMAL) BLOOD GAS 2 ARTERIAL (02/17/2024 [...] MEDICAL CENTER LABORATORY Comment: Noted by instrument inspector. Please note: Patients with WBC >100,000 [...] TEST ORDERABLES [facility] [place] [address] * (ABNORMAL) BLOOD GAS 2 ARTERIAL (02/17/2024 [...] MEDICAL CENTER LABORATORY Comment: Noted by instrument inspector. Please note: Patients with WBC >100,000 [...] OF CARE TEST ORDERABLES Performing Organization Address [facility]/ZIP Co de Phone Number [facility] [place] [address] * (ABNORMAL) Hemoglobin and Hematocrit, blood (02/17/2024 11:04 AM EDT) Pathologist [facility] Hemoglobin 9.6(L) 13.7 - 16.5 g/dL [place] [...] MD HEMATOLOGY ORDERABL ES Performing Organization Address City/[facility]/ZIP Co de Phone Number [facility] [place] [address] * (ABNORMAL) Platelet count (02/17/2024 11:04 AM EDT) Pathologist [facility] Platelet 106(L) 145 - 357 x10(3)/mc L [facility] Immature Plt % 1.6 0.0 - 7.4 % [facility] Comment: Limitation of the Immature Platelet Fraction (IPF)-May be less reliable when the platelet count is less than 74w363/uL due to statistical imprecision. The IPF value [...] in a decreased state of production. References: [employer] The Clinical Value of the Immature Platelet Fraction (IPF) in Cell Recovery Document Number [id number] 03/2011 [employer] The Role of the Immature Platelet Fraction (IPF) in the Differential Diagnosis of Thrombocytopenia, Document MKT-[id number] V002/15/14 P014 Blood 02/17/2024 11:0 4 AM EDT 02/17/2024 11:12 AM EDT Narrative Resulting Agency Comment Spec In Lab Hayder Graham MD HEMATOLOGY ORDERABL ES Performing Organization Address City/State/[facility] Co de Phone Number [facility] [place] [address] * (ABNORMAL) Fibrinogen (02/17/2024 11:04 AM EDT) [...] ORDERABL ES [facility] [place] [address] * (ABNORMAL) BLOOD GAS 2 ARTERIAL (02/17/2024 [...] TEST ORDERABLES [facility] [place] [address] * (ABNORMAL) BLOOD GAS 2 ARTERIAL (02/17/2024 [...] TEST ORDERABLES [facility] [place] [address] * Surgical Pathology Report (02/17/2024 10:01 AM EDT) Final Diagnosis [id number] ? Location: [facility] [address]; [facility]; The signing pathologist has (i) examined the relevant preparation(s) for the specimen(s) and (ii) rendered or confirmed the diagnosis(es). . ?Surgical Pathology DIAGNOSIS Aortic valve leaflets, excision: Valve leaflets with myxoid degeneration, nodular fibrosis and dystrophic calcifications. Electronically signed by: ?Lindsay FERNANDEZ, Livier Gonzalez Verified: ??02/24/2024 13:49 ??Pathologist Performed at: ??-[facility] Dept. of Pathology, [place] [address] Clinical Account Executive: Job Brewer MD, FCAP, ??CLIA Certificate: [id number] SPECIMEN(S) SUBMITTED A - Aortic Valve Leaflets, [...] Sections Processing Blocks submitted for decalcification: A1. Customer Resolution Specialist sections in 1 cassette labeled A1. ??ajw 02/24/2024 1:49 PM EDT [facility] AORTIC STRUCTURE / Unknown 02/17/2024 10:01 AM EDT 02/17/2024 10:01 AM EDT Hayder Graham MD PATHOLOGY/CYTOLOGY ORDERABLES Performing Organization Address City/[facility]/ZIP Co de Phone Number [facility] [place] [address] * Specimen to Pathology (02/17/2024 10:01 AM EDT) AP Specimen 02/17/2024 10:0 1 AM EDT 02/17/2024 10:01 AM EDT Narrative [facility] - 02/17/2024 10:01 AM EDT Specimen requisition ordered. ??Separate Pathology report to follow Hayder Graham MD PATHOLOGY/CYTOLOGY ORDERABLES Performing Organization Address City/[facility]/ZIP Co de Phone Number [facility] [place] [address] * (ABNORMAL) BLOOD GAS 2 ARTERIAL (02/17/2024 [...] TEST ORDERABLES [facility] [place] [address] * (ABNORMAL) BLOOD GAS 2 VENOUS (02/17/2024 9:34 AM EDT) pH, Venous 7.22(Criti marquez) 7.32 - 7.42 [facility] Comment:Noted by instrument inspector. PCO2, Venous 43 41 - 51 mmHg [facility] Comment:Noted by instrument inspector. PO2, Venous 57(H) 25 - 40 mmHg [facility] Comment:Noted by instrument inspector. Bicarbonate, Venous 17.1 mmol/L [facility] Comment:Noted by instrument inspector. Base Excess, Venous -10.6 mmol/L [facility] Comment:Noted by instrument inspector. Hgb Blood Gas 11.2(L) 13.7 - 16.5 g/dL [facility] Comment:Noted by instrument inspector. Oxyhemoglobin, Venous 86.5 % [facility] Comment:Noted by instrument inspector. Carboxyhemoglob in, Venous 0.3 % [facility] Comment: Noted by instrument inspector. Nonsmokers: 0.5-1.5% COHB Smokers: Variable, but usually less than 10% Toxic: 20-30% COHB Lethal: Greater than 60% COHB Methemoglobin, Venous 0.0 <=1.5 % [facility] Comment:Noted by instrument inspector. Na Whole Blood 156(H) 135 - 145 mmol/L [facility] Comment:Noted by instrument inspector. K Whole Blood 5.5(H) 3.5 - 5.0 mmol/L [facility] Comment: Noted by instrument inspector. Please note: Patients with WBC >100,000 may have falsely elevated Potassium levels. Contact the Clinical Chemistry Laboratory if there are any questions. ICa Whole Blood 1.03(L) 1.15 - 1.33 mmol/L [facility] Comment: Noted by instrument inspector. Note: ??Total bilirubin higher than 20 mg/dL may lead to falsely low ionized calcium. CL Whole Blood 100 98 - 107 mmol/L [facility] Comment:Noted by instrument inspector. Gluc Whole Bld 132 65 - 199 mg/dL [facility] Comment: Noted by instrument inspector. Diabetes: >=200 mg/dL plus symptoms Lactate WB 1.0 0.5 - 2.2 mmol/L [facility] Comment:Noted by instrument inspector. Blood Gas Source Venous [facility] Blood 02/17/2024 9:34 AM EDT 02/17/2024 9:34 AM EDT Hayder Graham MD POINT OF CARE TEST ORDERABLES [facility] [place] [address] * (ABNORMAL) BLOOD GAS 2 ARTERIAL (02/17/2024 [...] OF CARE TEST ORDERABLES Performing Organization Address [facility] Co de Phone Number [facility] [place] [address] * POCT Glucose (02/17/2024 6:38 AM EDT) Glucose, POC 98 65 - 199 mg/dL [facility] Comment: Supplemental ranges: <140 mg/dL before meals <180 mg/dL all other times of the day Blood 02/17/2024 6:38 AM EDT 02/17/2024 6:38 AM EDT Hayder Graham MD POINT OF CARE TEST ORDERABLES Performing Organization Address [facility] Co de Phone Number [facility] [place] [address] * Transesophageal Echo/OR (02/17/2024 6:33 AM EDT) [...] [facility]-operative [facility] cardiac [...] Routine documented in this encounter Care Teams Squirt Machine Operator Relationship Specialty Start Date End Date Aparna Jordan APRN PCP - General Family Medicine 10/21/23 05/26/24 documented as of this encounter
--- OUTSIDE RECORDS SUMMARY | 2024-06-12 08:27 | XMS_ITS | Encounter Summary ---
Author Organization [facility] Address [facility] [place] [address] Care Team Providers Care Inside Wirer Name Role Phone Vanessa Christian APRN Primary Care Provider [phone] Encounter Details Date Type Department Care Team [...] PM EST Office Visit Cardiology at [address] [place] [address] Neftali Ernandez MD [facility] [place] [address] documented as of this encounter Visit Diagnoses Not on filedocumented in this encounter Care Teams Inside Wirer Relationship Specialty Start Date End Date Vanessa Christian APRN PCP - General Family Medicine 10/21/23 05/26/24 documented as of this encounter
--- OUTSIDE RECORDS SUMMARY | 2024-06-12 08:27 | XMS_ITS | Encounter Summary ---
Author Organization [facility] [place] [address] Care Team Providers Care Passenger Car Conductor Name Role Phone Vanessa Christian MAURI Primary Care Provider [phone] Reason for Visit * Auth/Cert (Routine) Specialty [...] W RHC (WRVU 5.9) Rima Dickinson MD [facility] [place] [address] [facility] Referral ID Status Reason Start Date Expiration Date Visits Re quested Visits Authorized [id number] 1 1 Encounter Details Date Type Department Care Team (Latest Contact Info) Description 02/03/2024 8:06 AM EDT - 02/03/2024 2:54 PM EDT Hospital Encounter [place] [address] Rima Dickinson MD [facility] [place] [address] Screening for cardiovascular condition; Aortic valve stenosis, [...] lbs Follow-up Visits Follow up with your agate setter in 2-4 weeks Access Site 'Black and Blue' and tenderness is expected during the first week Call if you noted a mass (lump) greater than the size of a ellis Call Office with any Questions and if you have any of the following Clarence Lane M.D Interventional Aluminum Boats Assembler Power Grader Operator #: [phone] * Attachments The following attachments cannot be sent through Care Everywhere. * CAD (Coronary Artery Disease): General Info (Japanese) * Coronary Angiogram: Post-op (Japanese) documented in this encounter Medications at Time [...] Lane MD - 02/03/2024 11:48 AM EDT [facility] Interventional Cardiology Adult Pre-Procedure H&P Update: Cardiac Catheterization Karlos Anthony [id number] 1960 Chief Complaint: Aortic stenosis HPI: Mr. [...] is inthe chart Clarence Lane MD Interventional Aluminum Boats Assembler 02/03/24 11:48 AM documented in this encounter Miscellaneous Notes * Brief Op Note - Clarence Lane MD - 02/03/2024 12:51 PM EDT Preliminary Cardiac Catheterization Procedure Note: Patient Name: Karlos Anthony : [id number] MR#: [id number] Case Date: 02/03/2024 Power Grader Operator: Surgeon(s) and Role: * Saira Lua [...] PM EST Office Visit Cardiology at [address] [address] Neftali Ernandez MD [facility] [place] [address] Scheduled Orders Name Type Priority Associated Diagnoses [...] Modality Other Narrative 02/12/2024 3:47 PM EDT ?[facility] ? Cardiac Catheterization/Intervention Report ? Patient Name: Patenaude, Karlos ? Procedure Date: 02/03/2024 ? A #: [id number] ? Primary Physician: Saira Lua ? Case #: [id number] ? File Name: [id number] ? Catheterization Order Number: [id number] ? [facility] ? Final Report [place], [place] ? Patient Name: ? Karlos Patenaude ? ID#: ?[id number] ? : ?1960 ? Procedure Date: ? [...] Procedure Note Saira Lua MD - 02/12/2024 [facility] Cardiac Catheterization/Intervention Report Patient Name: Karlos Anthony Procedure Date: 02/03/2024 A #: [id number] Primary Physician: Saira Lua Case #: [id number] File Name: [id number] Catheterization Order Number: [id number] [facility] FinalReport [place], [place] Patient Name: Karlos Anthony ID#:[id number] :1960 Procedure Date: February 03, 2024 Case [...] was designated as ASA Class III. The [facility] clinical frailty scale is 3: [...] (Bezet) 372 ms MUSE SYSTEM Calculated P [place] 59 degrees MUSE SYSTEM Calculated R [place] 34 degrees MUSE SYSTEM Calculated T [place] 63 degrees MUSE SYSTEM INTERPRETATION Sinus bradycardia [...] MD) documented in this encounter Care Teams Passenger Car Conductor Relationship Specialty Start Date End Date Vanessa Christian APRN PCP - General Family Medicine 10/21/23 05/26/24 documented as of this encounter
--- OUTSIDE RECORDS SUMMARY | 2024-06-12 08:27 | XMS_ITS | Encounter Summary ---
Author Organization [facility] [place] [address] Care Team Providers Care Consulting Intern Name Role Phone Vanessa Christian MAURI Primary Care Provider Encounter Details Date Type Department Care Team (Late st Contact Info) Description 01/10/2024 Orders Only [place] [id number] Lawson Napoles PA [facility] [place] [address] Screening for cardiovascular condition; Aortic valve stenosis, [...] PM EST Office Visit Cardiology at [address] [place] [phone] Neftali Ernandez MD [facility] [place] [address] documented as of this encounter Visit Diagnoses Diagnosis Screening for cardiovascular condition Screening for other and unspecified cardiovascular conditions Aortic valve stenosis, etiology of cardiac valve disease unspecified documented in this encounter Care Teams Consulting Intern Relationship Specialty Start Date End Date Vanessa Christian APRN PCP - General Family Medicine 10/21/23 05/26/24 documented as of this encounter
--- OUTSIDE RECORDS SUMMARY | 2024-06-12 08:27 | XMS_ITS | Encounter Summary ---
Author Organization [facility] [place] [address] Care Team Providers Care Zipper Ironer Name Role Phone Vanessa Christian MAURI Primary Care Provider [phone] Reason for Visit * Auth/Cert (Routine) Specialty [...] W RHC (WRVU 5.9) Rima Dickinson MD [facility] [place] [address] [facility] Referral ID Status Reason Start Date Expiration Date Visits Re quested Visits Authorized [id number] 1 1 Encounter Details Date Type Department Care Team (Late st Contact Info) Description 02/03/2024 10:00 AM EDT - 02/03/2024 11:00 AM EDT [place] [address] Saira Lua MD [facility] [place] [address] CARDIAC CATHETERIZATION Social History Tobacco Use Types [...] Follow-up Visits Follow up with your field cane scaler helper in 2-4 weeks Access Site 'Black and Blue' and tenderness is expected during the first week Call if you noted a mass (lump) greater than the size of a ellis Call Office with any Questions and if you have any of the following Clarence Lane M.D Interventional Paint Maker Maxillofacial Surgeon #: [phone] * Attachments The following attachments cannot be sent through Care Everywhere. * CAD (Coronary Artery Disease): General Info (Belgian) * Coronary Angiogram: Post-op (Belgian) documented in this encounter Medications at Time [...] - 02/03/2024 11:48 AM EDT [facility] Interventional Cardiology Adult Pre-Procedure H&P Update: Cardiac Catheterization Karlos Anthony [id number] Chief Complaint: Aortic stenosis HPI: Mr. [...] is inthe chart Clarence Lane MD Interventional Paint Maker 02/03/24 11:48 AM documented in this encounter Miscellaneous Notes * Brief Op Note - Clarence Lane MD - 02/03/2024 12:51 PM EDT Preliminary Cardiac Catheterization Procedure Note: Patient Name: Karlos Anthony : [id number] MR#: [id number] Case Date: 02/03/2024 Maxillofacial Surgeon: Surgeon(s) and Role: * Saira Lua MD [...] PM EST Office Visit Cardiology at [address] [address] Neftali Ernandez MD [facility] [place] [address] Scheduled Orders Name Type Priority Associated Diagnoses [...] Narrative 02/12/2024 3:47 PM EDT ?[facility] ? Cardiac Catheterization/Intervention Report ? Patient Name: Patenaude, Karlos ? Procedure Date: 02/03/2024 ? A #: [id number] ? Primary Physician: Saira Lua ? Case #: [id number] ? File Name: [id number] ? Catheterization Order Number: [id number] ? [facility] ? Final Report [place], [place] ? Patient Name: ? Karlos Patenaude ? ID#: ?[id number] ? : ?1960 ? Procedure Date: ? February 03, 2024 ? Case #: ? [id number] ? Room: ? 5 ? Case Physician: ? Emad Holliem, M.D. ? Start: ?12:29 ?Fellow: ? Claernce N Domingo MAdria. ? Admission: ??02/03/2024 ? [...] Saira Lua MD - 02/12/2024 [facility] Cardiac Catheterization/Intervention Report Patient Name: Karlos Anthony Procedure Date: 02/03/2024 A #: [id number] Primary Physician: Saira Lua Case #: [id number] File Name: [id number] Catheterization Order Number: [id number] [facility] FinalReport [place], [place] Patient Name: Karlos Anthony ID#:[id number] :1960 Procedure Date: February 03, 2024 Case [...] was designated as ASA Class III. The [facility] clinical frailty scale is 3: [...] (Bezet) 372 ms MUSE SYSTEM Calculated P [place] 59 degrees MUSE SYSTEM Calculated R [place] 34 degrees MUSE SYSTEM Calculated T [place] 63 degrees MUSE SYSTEM INTERPRETATION Sinus bradycardia [...] MD) documented in this encounter Care Teams Zipper Ironer Relationship Specialty Start Date End Date Vanessa Christian APRN PCP - General Family Medicine 10/21/23 05/26/24 documented as of this encounter
--- OUTSIDE RECORDS SUMMARY | 2024-06-12 08:28 | XMS_ITS | Encounter Summary ---
Author Organization [facility] [place] [address] Care Team Providers Care Paper Latcher Name Role Phone Victor M Lafleur MD Primary Care Provider [phone] Encounter Details Date Type Department Care Team (Late st Contact Info) Description 09/26/2023 Abstract Cardiology at [address] [address] Karen Billy, RN Nonrheumatic aortic [...] PM EST Office Visit Cardiology at [address] [place] [address] Neftali Ernandez MD [facility] [place] [address] documented as of this encounter Visit Diagnoses Diagnosis Nonrheumatic aortic valve stenosis Aortic valve disorders Nevus of face Benign neoplasm of skin of other and unspecified parts of face documented in this encounter Care Teams Paper Latcher Relationship Specialty Start Date End Date Victor M Lafleur MD PCP - General 10/02/13 10/20/23 documented as of this encounter
--- OUTSIDE RECORDS SUMMARY | 2024-06-12 08:28 | XMS_ITS | Encounter Summary ---
Author Organization [facility] [place] [address] Care Team Providers Care Brine Process Operator Name Role Phone Vanessa Christian APRN Primary Care Provider [phone] Encounter Details Date Type Department Care Team (Late st Contact Info) Description 10/21/2023 Abstract Cardiology at [address] [phone] Adam Mayes RN Social History Tobacco Use [...] Office Visit Cardiology at [address] [address] Neftali Ernandez MD [facility] [place] [address] documented as of this encounter Visit Diagnoses Not on filedocumented in this encounter Care Teams Brine Process Operator Relationship Specialty Start Date End Date Vanessa Christian APRN PCP - General Family Medicine 10/21/23 05/26/24 documented as of this encounter
--- OUTSIDE RECORDS SUMMARY | 2024-06-12 08:28 | XMS_ITS | Encounter Summary ---
Author Organization [facility] Address [facility] [place] [address] Care Team Providers Care Freight Car Cleaner Name Role Phone Vanessa Christian MAURI Primary Care Provider [phone] Encounter Details Date Type Department Care Team (Latest Contact Info) Description 01/09/2024 3:02 PM EDT - 01/09/2024 11:59 PM EDT Hospital Encounter XRay at [address] [place] [address] Zak Farmer MD [facility] [place] [address] Nonrheumatic aortic valve stenosis Discharge Disposition: Home Social History Tobacco Use Types Packs/Day Years Used Date Smoking Tobacco: Former Cigarettes Smokeless Tobacco: Never Comments:Quit 15 + years ago Alcohol Use Standard Drinks/Week Comments Yes 0 (1 standard drink = 0.6 oz pur e alcohol) rare [facility] Inpatient Questions Answer Date Recorded Prevent [...] PM EST Office Visit Cardiology at [address] [place] [address] Neftali Ernandez MD [facility] [place] [address] documented as of this encounter Procedures Procedure [...] who have questions please contact the health overnight caregiver that requested your imaging first. ? [...] patients who have questions please contactthe health overnight caregiver that requested your imaging first. Zak Farmer MD IMG DX ORDERABLES documented in this encounter Visit Diagnoses Diagnosis Nonrheumatic aortic valve stenosis Aortic valve disorders documented in this encounter Care Teams Freight Car Cleaner Relationship Specialty Start Date End Date Vanessa Christian APRN PCP - General Family Medicine 10/21/23 05/26/24 documented as of this encounter
--- OUTSIDE RECORDS SUMMARY | 2024-06-12 08:28 | XMS_ITS | Encounter Summary ---
Author Organization [facility] Address [facility] [place] [address] Care Team Providers Care Solution Consultant Name Role Phone Vanessa Christian STOCK REPAIRER Primary Care Provider [phone] Reason for Referral * Diagnostic Test (Routine) - Closed Specialty Diagnoses / Procedures Referred By Contac t Referred To Contact Radiology Diagnoses Nonrheumatic aortic valve stenosis Procedures CT Chest wo Contrast (Generic) Louisa Reid PA [facility] [place] [address] [facility] [place] [address] Referral ID Status Reason Start Date Expiration Date V isits Requested Visits Authorized [id number] Closed Specialty Service Requested 01/10/2024 07/11/2025 1 1 Encounter Details Date Type Department Care Team (Late st Contact Info) Description 01/09/2024 [place] [address] Zak Farmer MD [facility] [place] [address] Nonrheumatic aortic valve stenosis Social History Tobacco [...] 3:00 PM EST Office Visit Cardiology at [address] [place] [address] Neftali Ernandez MD [facility] [place] [address] documented as of this encounter Results * CT Chest wo Contrast (Generic) (02/03/2024 7:44 AM EDT) WORKSTATION ID [id number] RAD Anatomical Region Laterality Modality Chest Computed [...] who have questions please contact the health behavioral health care coordinator that requested your imaging first. ? Electronically signed by: Rogerio Wright MD, [facility] ([phone]), at 02/03/2024 10:00 AM Narrative 02/03/2024 10:00 [...] nodule along the minor fissure (series 302 [id number]) and a 8 mm right lower lobe [...] patients who have questions please contactthe health behavioral health care coordinator that requested your imaging first. Electronically signed by: Rogerio Wright MD, [facility]([phone]), at 02/03/2024 10:00 AM Zak Farmer MD IMG CT ORDERABLES documented in this encounter Visit Diagnoses Diagnosis Nonrheumatic aortic valve stenosis Aortic valve disorders Nonrheumatic aortic valve stenosis Aortic valve disorders documented in this encounter Care Teams Solution Consultant Relationship Specialty Start Date End Date Vanessa Christian APRN PCP - General Family Medicine 10/21/23 05/26/24 documented as of this encounter
--- OUTSIDE RECORDS SUMMARY | 2024-06-12 08:28 | XMS_ITS | Encounter Summary ---
Author Organization [facility] [place] [address] Care Team Providers Care Grievance Manager Name Role Phone Vanessa Christian Lane DOTSON Primary Care Provider [phone] Encounter Details Date Type Department Care Team (Late st Contact Info) Description 01/09/2024 2:30 PM EDT Clinical Support Same Day at [facility] [place] [phone] Social History Tobacco Use Types Packs/Day Years [...] you tube link for a video about [facility] cardiac surgery. Instructed to [...] type and screen performed while in the [facility]. Sent to Radiology for chest x-ray. Special medication instructions: None Procedure date: not booked. Darian documented in this encounter Plan of Treatment Upcoming Encounters Date Type Department Care Team (Late st Contact Info) Description 11/30/2024 3:00 PM EST Office Visit Cardiology at [address] [place] [address] Neftali Ernandez MD [facility] [place] [address] documented as of this encounter Visit Diagnoses Not on filedocumented in this encounter Care Teams Grievance Manager Relationship Specialty Start Date End Date Vanessa Christian APRN PCP - General Family Medicine 10/21/23 05/26/24 documented as of this encounter
--- OUTSIDE RECORDS SUMMARY | 2024-06-12 08:28 | XMS_ITS | Encounter Summary ---
Author Organization [facility] [place] [address] Care Team Providers Care Last Sorter Name Role Phone Vanessa Christian APRN Primary Care Provider [phone] Encounter Details Date Type Department Care Team [...] PM EST Office Visit Cardiology at [address] [place] [phone] Neftali Ernandez MD [facility] [place] [address] documented as of this encounter Visit Diagnoses Not on filedocumented in this encounter Care Teams Last Sorter Relationship Specialty Start Date End Date Vanessa Christian APRN PCP - General Family Medicine 10/21/23 05/26/24 documented as of this encounter
--- OUTSIDE RECORDS SUMMARY | 2024-06-12 08:28 | XMS_ITS | Encounter Summary ---
Author Organization [facility] [place] [address] Care Team Providers Care Media Assistant Name Role Phone Vanessa Christian APRN Primary Care Provider [phone] Encounter Details Date Type Department Care Team (Late st Contact Info) Description 12/26/2023 Notes Only Cardiology at [address] [address] Neftali Ernandez MD [facility] [place] [address] Social History Tobacco Use Types Packs/Day Years [...] 1:37 PM EDT Echocardiogram images reviewed from [facility]. Indeed, the aortic valve appears severely stenotic. Cannotrule out bicuspid valve documented in this encounter Plan of Treatment Upcoming Encounters Date Type Department Care Team (Late st Contact Info) Description 11/30/2024 3:00 PM EST Office Visit Cardiology at [address] [address] Neftali Ernandez MD [facility] [place] [address] documented as of this encounter Visit Diagnoses Not on filedocumented in this encounter Care Teams Media Assistant Relationship Specialty Start Date End Date Vanessa Christian APRN PCP - General Family Medicine 10/21/23 05/26/24 documented as of this encounter
--- OUTSIDE RECORDS SUMMARY | 2024-06-12 08:28 | XMS_ITS | Encounter Summary ---
Author Organization [facility] [place] [address] Care Team Providers Care Dot Etcher Name Role Phone Vanessa Christian APRN Primary Care Provider [phone] Encounter Details Date Type Department Care Team [...] PM EST Office Visit Cardiology at [address] [place] [phone] Neftali Ernandez MD [facility] [place] [address] documented as of this encounter Visit Diagnoses Not on filedocumented in this encounter Care Teams Dot Etcher Relationship Specialty Start Date End Date Vanessa Christian APRN PCP - General Family Medicine 10/21/23 05/26/24 documented as of this encounter
--- OUTSIDE RECORDS SUMMARY | 2024-06-12 08:28 | XMS_ITS | Encounter Summary ---
Author Organization [facility] [place] [address] Care Team Providers Care House Principal Name Role Phone Vanessa Christian MAURI Primary Care Provider [phone] Encounter Details Date Type Department Care Team (Latest Contact Info) Description 01/09/2024 3:00 PM EDT [place] [address] Nonrheumatic aortic valve stenosis Social History Tobacco Use Types Packs/Day Years Used Date Smoking Tobacco: Former Cigarettes Smokeless Tobacco: Never Comments:Quit 15 + years ago Alcohol Use Standard Drinks/Week Comments Yes 0 (1 standard drink = 0.6 oz pur e alcohol) rare [facility] Inpatient Questions Answer Date Recorded Prevent [...] PM EST Office Visit Cardiology at [address] [phone] Neftali Ernandez MD [facility] [place] [address] documented as of this encounter Procedures Procedure Name Priority Date/Time Associated Diagnosis Comments ABORH RECHECK STATUS Routine 01/09/2024 2:58 PM EDT HEMOGRAM Routine 01/09/2024 2:58 PM EDT Nonrheumatic aortic valve stenosis DIFFERENTIAL, AUTOMATED Routine 01/09/2024 2:58 PM EDT Nonrheumatic aortic valve stenosis TYPE AND SCREEN, SDP (FUTURE SURGERY, [facility] ONLY) Routine 01/09/2024 2:58 [...] BANK LAB CECILIO ALEMAN [facility] [place] [address] * Differential, Automated (01/09/2024 2:58 PM EDT) Neutrophil % 70.5 % [facility] Neutrophil Absolute 4.34 1.70 - 6.10 x10(3)/[facility] Lymph % 18.9 % [facility] Lymphocytes Abs 1.2 0.9 - 3.2 x10(3)/[facility] Monocyte % 8.0 % [facility] Monocyte Abs 0.5 0.3 - 0.9 x10(3)/[facility] Eos % 1.6 % [facility] Eosinophils Abs 0.1 0.0 - 0.4 x10(3)/[facility] Basophil % 0.5 % [facility] Baso Absolute 0.0 0.0 - 0.1 x10(3)/[facility] Immature Gran % 0.50 % [facility] [...] MD HEMATOLOGY ORDERABL ES [facility] [place] [address] * Hemogram (01/09/2024 2:58 PM EDT) White [...] HOSPITAL LABORATORY Platelet 187 145 - 357 x10(3)/[facility] RDW Standard Deviation 39.2 36.0 - 45.0 fL [facility] RDW coefficient of variation 12.6 11.4 - 13.8 % [facility] Mean Platelet Volume 9.5 7.6 - 12.9 fL [facility] NRBC% auto 0.0 % [facility] NRBC Absolute 0.000 0.000 - 0.000 x10(3)/[facility] Blood 01/09/2024 2:58 PM EDT 01/09/2024 3:03 PM EDT Narrative Resulting Agency Comment Spec In Lab Zak Farmer MD HEMATOLOGY ORDERABL ES [facility] [place] [address] * Basic Metabolic Panel (non-fasting) (01/09/2024 2:58 [...] MD CHEMISTRY ORDERABLE S [facility] [place] [address] * Hepatic Function Panel (01/09/2024 2:58 PM [...] ORDERABLE S Performing Organization Address [facility] Co de Phone Number [facility] [place] [address] * Prothrombin Time (01/09/2024 2:58 PM EDT) [...] MD HEMATOLOGY ORDERABL ES Performing Organization Address [facility] Co de Phone Number [facility] [place] [address] * Type and Screen Future Surgery, [facility]) (01/09/2024 2:58 PM EDT) ABORH Type O NEGATIVE [facility] Patient BB History Not Found [facility] Expires at 2359 on: 02-20-2024 [facility] Ab Screen Interp Negative [facility] Blood 01/09/2024 2:58 PM EDT 01/09/2024 2:58 PM EDT Narrative Resulting Agency Comment Spec In Lab Zak Farmer MD BLOOD BANK LAB ORDE RABLES Performing Organization Address City/[facility]/[place] [address] documented in this encounter Visit Diagnoses Diagnosis Nonrheumatic aortic valve stenosis Aortic valve disorders documented in this encounter Care Teams House Principal Relationship Specialty Start Date End Date Vanessa Christian APRN PCP - General Family Medicine 10/21/23 05/26/24 documented as of this encounter
--- OUTSIDE RECORDS SUMMARY | 2024-06-12 08:28 | XMS_ITS | Encounter Summary ---
[place] [address] Care Team Providers Care Shot Examiner Name Role Phone Victor M Lafleur MD Primary Care Provider [phone] Reason for Visit * Reason Onset Date Comments Referral 09/20/2023 Encounter Details Date Type Department Care Team (Late st Contact Info) Description 09/20/2023 Telephone Cardiology at [address] [address] Karen Billy, pavilion cutter Social History Tobacco Use Types Packs/Day Years [...] PM EST Office Visit Cardiology at [address] [place] [address] Neftali Ernandez MD [facility] [place] [address] documented as of this encounter Visit Diagnoses Not on filedocumented in this encounter Care Teams Shot Examiner Relationship Specialty Start Date End Date Victor M Lafleur MD PCP - General 10/02/13 10/20/23 documented as of this encounter
--- OUTSIDE RECORDS SUMMARY | 2024-06-12 08:28 | XMS_ITS | Encounter Summary ---
Author Organization [facility] [place] [address] Care Team Providers Care Customer Advisor Specialist Name Role Phone Vanessa Christian APRN Primary Care Provider [phone] Encounter Details Date Type Department Care Team (Late st Contact Info) Description 10/21/2023 Abstract Cardiology at [address] [place] [phone] Adam Mayes RN Social History Tobacco Use [...] PM EST Office Visit Cardiology at [address] [place] [address] Neftali Ernandez MD [facility] [place] [address] documented as of this encounter Visit Diagnoses Not on filedocumented in this encounter Care Teams Customer Advisor Specialist Relationship Specialty Start Date End Date Vanessa Christian APRN PCP - General Family Medicine 10/21/23 05/26/24 documented as of this encounter
--- OUTSIDE RECORDS SUMMARY | 2024-06-12 08:28 | XMS_ITS | Encounter Summary ---
Author Organization [facility] Address [facility] Ivana linareseileen [place] [id number] Care Team Providers Care News Anchor Name Role Phone Vanessa Christian MAURI Primary Care Provider [phone] Reason for Referral * Consultation (Routine) - Closed Specialty Diagnoses / Procedures Referred By Contac t Referred To Contact Cardiac Surgery Diagnoses Nonrheumatic aortic valve stenosis significant - TAVR ( defers to Card Surg d/t age) Errol Loya MD [facility] [place] [address] Zak Farmer MD [facility] [place] [address] Referral ID Status Reason Start Date Expiration Date V isits Requested Visits Authorized [id number] Closed Consult, Test & Treat 10/21/2023 10/20/2024 1 1 Reason for Visit * Reason Comments Chest Pain Shortness of Breath Aortic Stenosis Encounter Details Date Type Department Care Team (Late st Contact Info) Description 10/21/2023 1:20 PM EST Office Visit Cardiology at [address] [address] Errol Loya MD [facility] [place] [address] Nonrheumatic aortic valve stenosis Social History Tobacco [...] Problem List Diagnosis Aortic stenosis 12/2022 TTE ([facility]): VITA 0.8-0.9 cm2 (MG 28 mmHg, DOI 3.6 m/s, SVI 35 cc/m2). Trace regurgitation. Normal bi-v s/f, no other valve findings Gastroesophageal reflux Nevus of face Right oriental orthodox Hypertension HLD (hyperlipidemia) MEDICATIONS: Current Outpatient Medications [...] the meantime will refer to T at [facility] for further evaluation. Logistics and preliminary review of TONY were reviewed with patient. - Refer to T RTC pending TONY evaluation (or review of echocardiogram) Errol Loya MD Between 60-74 minutes were spent doing patient care, chart care/review (today), and care coordination. documented in this encounter Miscellaneous Notes * Assessment & Plan Note - rErol Loya MD - 10/21/2023 3:47 PM EST [...] the meantime will refer to T at [facility] for further evaluation. [...] PM EST Office Visit Cardiology at [address] [place] [phone] Errol Loya MD [facility] [place] [address] Scheduled Referrals Name Type Priority Associated Diagnoses Order Schedule Amb Referral to Structural Heart Outpatient Referral Routine Nonrheumatic aortic valve stenosis Ordered: 10/21/2023 documented as of this encounter Visit Diagnoses Diagnosis Nonrheumatic aortic valve stenosis Aortic valve disorders documented in this encounter Care Teams News Anchor Relationship Specialty Start Date End Date Vanessa Christian APRN PCP - General Family Medicine 10/21/23 05/26/24 documented as of this encounter
--- OUTSIDE RECORDS SUMMARY | 2024-06-12 08:28 | XMS_ITS | Encounter Summary ---
Author Organization [facility] Address [facility] [place] [address] Care Team Providers Care Metallurgical Tester Name Role Phone Vanessa Christian MAURI Primary Care Provider [phone] Reason for Visit * Consultation (Routine) - Closed Specialty Diagnoses / Procedures Referred By Contac t Referred To Contact Cardiac Surgery Diagnoses Nonrheumatic aortic valve stenosis significant - TAVR ( defers to Card Surg d/t age) Neftali Ernandez MD [facility] [place] [address] [facility] [place] [address] Referral ID Status Reason Start Date Expiration Date V isits Requested Visits Authorized [id number] Closed Consult, Test & Treat 10/21/2023 10/20/2024 1 1 Encounter Details Date Type Department Care Team (Late st Contact Info) Description 01/09/2024 1:40 PM EDT Office [place] [address] [facility] [place] [address] Nonrheumatic aortic valve stenosis Social [...] office. Best personal regards, Zak Farmer MD [phone] In aggregate 55 minutes were spent evaluating [...] PM EST Office Visit Cardiology at [address] [place] [id number] Neftali Ernandez MD [facility] [place] [address] documented as of this encounter Results * [...] childcare director that requested your imaging first. Zak [...] CHEMISTRY ORDERABLE S [facility] [place] [address] * Hepatic Function Panel (01/09/2024 2:58 PM [...] MD CHEMISTRY ORDERABLE S Performing Organization Address [facility] Co de Phone Number [facility] [place] [address] * Prothrombin Time (01/09/2024 2:58 PM EDT) [facility] Prothrombin Time 10.6 9.4 - 12.5 sec [...] MD HEMATOLOGY ORDERABL ES Performing Organization Address [facility]/ZIP Co de Phone Number [facility] [place] [address] * Type and Screen Future Surgery, [facility] ONLY) (01/09/2024 2:58 PM EDT) ABORH Type O NEGATIVE [facility] Patient BB History Not Found [facility] Expires at [id number] on: 02-20-2024 [facility] Ab Screen Interp Negative [facility] Blood 01/09/2024 2:58 PM EDT 01/09/2024 2:58 PM EDT Narrative Resulting Agency Comment Spec In Lab Zak Farmer MD BLOOD BANK LAB CECILIO ALEMAN [facility] Organization Address City/State/ZIP Co de Phone Number [facility] [place] [address] documented in this encounter Visit Diagnoses Diagnosis Nonrheumatic aortic valve stenosis Aortic valve disorders Nonrheumatic aortic valve stenosis Aortic valve disorders documented in this encounter Care Teams Metallurgical Tester Relationship Specialty Start Date End Date Vanessa Christian APRN PCP - General Family Medicine 10/21/23 05/26/24 documented as of this encounter
--- OUTSIDE RECORDS SUMMARY | 2024-06-12 08:28 | XMS_ITS | Data Portability ---
Author Organization [place] - [facility] Address [address] [place] [address] Care Team Providers Care Microbiology Lab Technician Name Role Phone APARNA JORDAN Primary Care Provider Assessment No assessment recorded. Plan of Treatment Reminders Order Date Submit Date Provider Last Modified By Organization Details Last Modified Time Details Appointments None recorded . Lab magnesiu m, serum or plasma 024 12/18/19 24 [email or web address] [facility] (Registration ), [address] [place] [address] [place], [address], 4 14:25:25 BMP, serum or plasma 024 12/18/19 24 [email or web address] [facility] (Registration ), [address] [place] [address] [place], [address], 4 14:25:24 Referral None recorded . Procedures None recorded . Surgeries None recorded . Imaging None recorded . Medication Orders None recorded . Patient TargetsNo targets recorded. 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 checking kidney function and magnesium labs today will mail home. follow up in 3 months for BPH, Aortic stenosis. 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 for Referral [employer] Referral for Roland ateral hearing loss Referring Physician: Aparna Jordan, Family Medicine, Encounter Date: 02/26/2024 Results Created Date Observation Date Name Description Value Unit Range Abnormal Flag Note LastModifiedBy Organization Detail LastModifiedTime 12/18/19 24 12/18/2023 LASIC METAB OLIC PANEL calcium 9.3 mg/dL 8.5-10 .1 normal Not Available [address] [place], [address] 12/18/2023 17:09:55 12/18/19 24 12/18/2023 LASIC METAB OLIC PANEL glucose 90 mg/dL 74-106 normal Not Available Baljit montemayor [address] [place] [place], [address] 12/18/2023 17:09:55 12/18/19 24 12/18/2023 LASIC METAB OLIC PANEL BUN 14 mg/dL 7-18 normal Not Available Baljit montemayor [address] [place], [address] 12/18/2023 17:09:55 12/18/19 24 12/18/2023 LASIC METAB OLIC PANEL creatinine 1.0 mg/dL 0.70-1 .30 normal Not Available [address] [place], [address] 12/18/2023 17:09:55 12/18/19 24 12/18/2023 LASIC METAB [...] young er-ag ed adult s. Not Available [address] [place], [address] 12/18/2023 17:09:55 12/18/19 24 12/18/2023 LASIC METAB OLIC PANEL sodium 139 mmol/ L 136-14 5 normal Not Available [address] [place], [address] 12/18/2023 17:09:55 12/18/19 24 12/18/2023 LASIC METAB OLIC PANEL potassium 4.9 mmol/ L 3.5-5. 1 normal Not Available [address] [place], [address] 12/18/2023 17:09:55 12/18/19 24 12/18/2023 LASIC METAB OLIC PANEL chloride 104 mmol/ L 98-107 normal Not Available [address] [place], [address] 12/18/2023 17:09:55 12/18/19 24 12/18/2023 LASIC METAB OLIC PANEL CO2 30.9 mmol/ L 21.0-3 2.0 normal Not Available [address] [place], [address] 12/18/2023 17:09:55 12/18/19 24 12/18/2023 LASIC METAB OLIC PANEL anion gap 4.1 mmol/ L 3-11 normal Not Available [address] [place], [address] 12/18/2023 17:09:55 12/18/19 24 12/18/2023 MAGNE SIUM magnesium 1.8 mg/dL 1.8-2. 4 normal Not Available [address] [place], [address] 12/18/2023 17:09:56 09/11/20 23 12/05/2022 trans -thor acic echoc ardio gram (TTE) (PROC ) No observ ation record ed. [email or web address] [facility] Xray [address] , [place], [address], 09/13/2023 09:29:52 09/11/20 23 06/01/2022 XR, hip, unila teral No observ ation record ed. [email or web address] Not Available 2022 09:29:19 09/11/20 23 12/06/2019 US, echoc ardio gram No observ ation record ed. [email or web address] [facility]- Cardiology [facility], [place], [address], 09/13/2023 09:28:49 Result Notes None recorded. Problems Name Problem SNOMED Code Status Onset Date Resolution Date Notes Provider Name and Address Organization Details Recorded Time Gastroes ophageal reflux disease without esophagi tis 556391602 Active 2022 Problem Code: K21.9; Problem Code Type: ICD-10; Not Available [facility] 4 05:35:57 Glaucoma 41289206 Active 2022 Problem Code: H40.9; Problem Code Type: ICD-10; Not Available [facility] 4 05:35:57 Hyperlip idemia 09481761 Active 2022 Problem Code: E78.5; Problem Code Type: ICD-10; Not Available [facility] 4 05:35:57 [facility] hyperten niels 19732195 Active 2022 Problem Code: I10; Problem Code Type: ICD-10; Not Available [facility] 4 05:35:57 Pain of left hip joint 98699299953 9100 Active 2022 Problem Code: M25.552; Problem Code Type: ICD-10; Not Available [facility] 4 05:35:57 Idiopath ic osteoart hritis 734484079 Active 2022 Problem Code: M16.12; Problem Code Type: ICD-10; Not Available [facility] 4 05:35:57 Inguinal hernia 467808970 Active 2022 Problem Code: K40.90; Problem Code Type: ICD-10; Not Available [facility] 4 05:35:57 Heart murmur 10966630 Active 2022 Problem Code: R01.1; Problem Code Type: ICD-10; Not Available [facility] 4 05:35:57 Dyspnea 701309497 Active 2022 Problem Code: R06.09; Problem Code Type: ICD-10; Not Available [facility] 4 05:35:57 Chest pain 49090497 Active 2022 Problem Code: R07.89; Problem Code Type: ICD-10; Not Available [facility] 4 05:35:57 Melanocy tic nevus 797747324 Active 2022 Problem Code: D22.9; Problem Code Type: ICD-10; Not Available [facility] 4 05:35:57 Aortic stenosis , non-rheu matic 051852152 Active 2022 Problem Code: I35.0; Problem Code Type: ICD-10; Not Available [facility] 4 05:35:58 Aortic stenosis , non-rheu matic 185014961 Completed 202208/14/2023 Problem Code: I35.0; Problem Code Type: ICD-10; Not Available [facility] 4 05:35:58 Indigest ion 613663266 Active 2023 GLORIA CAMP LPN null, [facility] 4 08:48:57 Coronary artery bypass grafts x 3 Active 2023 Kelly Duran RN [facility], [facility] 4 10:30:01 At increase d risk of atrial fibrilla tion 065747561 Active [address], [place], [address] , [facility] 4 13:52:01 Anemia 786983030 Active [address], [place], [address] , [facility] 4 13:54:39 Problem Notes None recorded. Procedures Surgical History Date Name Laterality Status Provider Name and Address Organization Details Recorded Time coronary artery bypass graft completed Hudson Reeder MA [facility], [place] - [facility]. 03/04/2024 14:54:09 Imaging Results Imaging Date Name Status LastModified by Organization Details LastModified Time 12/05/2022 trans-thoracic echocardiogram (TTE) (PROC) completed [address] Xray [address] , [place], [address], 09/13/2023 09:29:52 06/01/2022 XR, hip, unilateral [place] [address] Information not available 09/13/2023 09:29:19 12/06/2019 US, echocardiogram completed [address]- Cardiology [address], [place], [address], 09/13/2023 09:28:49 Procedure Notes None recorded. Medical [...] es. Take 1 hr prior. Started by [facility]. Not Available Not Available Not Available doxycycli [...] BY MOUTH DAILY 02/24 completed stopped by [facility] Not Available Not Available Not Available brimonidi [...] hours by oral route as needed. active [facility] Not Available Not Available No t Available Aspirin Childrens 81 mg chewable tablet Take 1 tablet by mouth once a day active Not Available Not Available No t Available lisinopri l 5 mg tablet TAKE 1 TABLET BY MOUTH EVERY DAY 02/24 completed stopped by [facility] Not Available Not Available Not Available mupirocin [...] day by oral route. active started by [facility] Not Available Not Available Not Available dorzolami de 2 % (PF) eye drops 1 drop both eyes bid 12/17 completed Not Available Not Available Not Available Vitals Date Recorded Body weight Body mass index (BMI) Body height Heart rate Systolic blood pressure Diastolic blood pressure Provider Name and Address Organization Details Last Updated DateTime 3 41512.7 8 g 23.7 kg/m2 167.64 cm 64 /min 110 mm[Hg] 60 mm[Hg] GLORIA ZOË , [facility], [facility] 3 08:48:49 Date Recorded Body height Body mass index (BMI) Body weight Heart rate Systolic blood pressure Diastolic blood pressure Provider Name and Address Organization Details Last Updated DateTime 4 167.64 cm 24.6 kg/m2 28151.4 4 g 60 /min 112 mm[Hg] 80 mm[Hg] GLORIA CAMP [facility] 4 08:38:13 Date Recorded Body height Body mass index (BMI) Body weight Heart rate Oxygen saturation Oxygen saturation in Arterial blood by Pulse oximetry Systolic blood pressure Diastolic blood pressure Provider Name and Address Organization Details Last Updated DateTime 4 167.64 cm 22.6 kg/m2 66951.6 5 g 63 /min 99 % 99 % 102 mm[Hg] 54 mm[Hg] Hudson Reeder MA [facility] 4 10:27:28 Social History Question Answer Notes LastModified by Organizat ion Details LastModified Time Tobacco Smoking Status Former Smoker Hudson Reeder MA null, [facility] 03/06/2024 10:24:50 Do You Have An Advance Directive? Yes Registered 08/15/23 Updated 01/12/24 Information not available 01/15/2024 When Did You Quit Smoking? 11-15years [email or web address] Information not available 03/06/2024 Do You Have A Medical Power Of Relationship Specialist? Yes Received 08/30/23, Scanned. Copies Sent To [facility] And Patient 09/02/23. Information not available 09/02/2023 What Was The Date Of Your Most Recent Tobacco Screening? 03/06/2024 [email or web address] Information not available 03/06/2024 What Is Your Current Pack Years? 30ormorepa ckyears [email or web address] Information not available 03/06/2024 How Much Tobacco Do You Smoke? 1 PPD [email or web address] Information not available 03/06/2024 How Many Years Have You Smoked Tobacco? 40 [email or web address] Information not available 03/06/2024 Do You Or Have You Ever Used Any Other Forms Of Tobacco Or Nicotine? No [email or web address] Information not available 03/06/2024 Sex: Male Functional [...] Recorded Time Tdap 08/26/2013 completed Not Available [facility] 05:30:17 Td(adult) unspecified formulation 11/21/2022 completed Not Available [facility] 10/18/2023 05:30:17 COVID-19, mRNA, LNP-S, PF, 100 mcg/0.5mL dose or 50 mcg/0.25mL dose 01/24/2021 completed Not Available [facility] 10/18/19 05:30:18 COVID-19, mRNA, LNP-S, PF, 100 mcg/0.5mL dose or 50 mcg/0.25mL dose 02/21/2021 completed Not Available [facility] 10/18/19 05:30:18 COVID-19, mRNA, LNP-S, PF, 100 mcg/0.5mL dose or 50 mcg/0.25mL dose 09/11/2021 completed Not Available [facility] 10/18/19 05:30:18 influenza, unspecified formulation 07/26/2021 completed Not Available [facility] 10/18/2023 05:30:18 influenza, unspecified formulation 07/26/2022 completed Not Available [facility] 10/18/2023 05:30:18 influenza, unspecified formulation 07/28/2020 completed Not Available [facility] 10/18/2023 05:30:18 influenza, unspecified formulation 08/05/2019 completed Not Available [facility] 10/18/2023 05:30:18 influenza, unspecified formulation 08/12/2018 completed Not Available [facility] 10/18/2023 05:30:18 Past Encounters Encounter ID Performer Location Encounter Start Date Encounter Closed Date Diagnosis/Indication Diagnosis SNOMED-CT Code Diagnosis ICD10 Code [id number] [address] [address] 09/19/2023 08:39:51 09/19/2023 09:17:42 Aortic valve stenosis 05879321 I35.0 Essential hypertension 09325189 I10 [id number] [address] [address] 12/18/2023 08:23:47 12/18/2023 09:29:09 Aortic stenosis, non-rheumatic 264904173 I35.0 Essential hypertension 02023389 I10 Nonulcer dyspepsia 03725 07 K30 Cramp in lower leg 59544 8009 R25.2 [id number] TATYANA LEDEZMA MD [address] [address] 03/06/2024 10:15:07 03/06/2024 11:14:28 Postoperative visit 745673391 Z48.89 Aortic rosa m nosis, non-rheumatic 860813358 I35.0 Stented co ronary artery 078944741 Z95.5 At [facility] ed risk of atrial fibrillation 209050252 Z91.89 Anemia 989442753 D64.9 Health Concerns Section Related Observation LastModified by Organization Detai ls LastModified Time None Recorded Concern Status LastModified by Organization Details LastModified Time None Recorded Advance Directives Directive Y: Registered 08/15/23Updated 01/12/24 Payers Encounter Date Sequence Insurance Name Policy Number Policy Alicia Covered Member ID Alicia Member ID Guarantor Name 12/18/2023 1 [facility] [id number] Karlos C Patenaude [id number] Karlos C Patenaude 03/06/2024 1 [place] [id number] Karlos C Patenaude [id number] Karlos C Patenaude Notes Date Note Type Note Provider Name and Address Organization Details Recorded Time 09/19/2023 text/html HPI Notes: 63-year-old man here for follow-up hypertension, severe aortic stenosis., He works full-time at [employer]. He lives at home with his dog. He has not heard from [facility] cardiology? referred mid-August. He did decrease his lisinopril to 5 mg, home SBPs running 110- 138, no change in slight lightheadedness with change position. He does continue to get dyspnea on exertion, denies chest pain, resolves fairly quickly no peripheral edema. 12/05/2022 [facility] transthoracic echocardiogram; there is moderate to severe aortic stenosis with disparate indicators. The calculated valve area is 0.8 cm2 is consistent with severe stenosis. Planimetry confirms valve area to 0.9 cm2. The mean gradient of 28 mmHg and peak velocity of 3.6M/S are consistent with moderate stenosis. There is trivial to mild aortic insufficiency. Aparna lizarraga [place] [employer], [facility]. 09/19/2023 13:31:38 12/18/2023 text/html HPI Notes: 63-year-old man here for follow-up hypertension, severe aortic stenosis., He works full-time at [employer]. He lives at home with his dog. 12/05/2022 [facility] transthoracic echocardiogram; there is moderate [...] repair a number of years ago at [facility], it is starting to cause some discomfort. Reports leg cramps at nighttime intermittently, improves when he has a Gatorade during the daytime and Ovaltine in his coffee. Aparna lizarraga [place] [employer] 12/18/2023 11:43:00 03/06/2024 text/html HPI Notes: Ana Paula marlow is here today for a postop evaluation TATYANA LEDEZMA MD [address], [place], [address], [facility]. 03/08/2024 13:57:34
--- OUTSIDE RECORDS SUMMARY | 2024-06-15 08:27 | XMS_ITS | Referral Summary ---
Author Organization [facility] Address [address] [place] [address] Care Team Providers Care Behavioral Medical Director Name Role Phone Filidayna Vanessa Sherman NP Primary Care Provider [phone] Social History Tobacco Use Types Packs/Day Years Used Date Smoking Tobacco: Never Assessed Sex and Gender Information Value Date Recorded Sex Assigned at Not on file Gender Identity Not on file Sexual Orientation Not on file Plan of Treatment Not on file Care Teams Behavioral Medical Director Relationship Specialty Start Date End Date Vanessa Christian NP [address] [place] [address] PCP - General Family Medicine - Primary Care 10/07/23
--- OUTSIDE RECORDS SUMMARY | 2024-06-15 08:27 | XMS_ITS | Encounter Summary ---
[place] [address] Care Team Providers Care Student Activities Director Name Role Phone Aparna Jordan MAURI Primary Care Provider [phone] Reason for Referral * Diagnostic Test (Routine) - New Request Specialty Diagnoses / Procedures Referred By Contac t Referred To Contact Cardiology Diagnoses S/P AVR Procedures Echocardiogram Transthoracic Neftali Menon PA [facility] [place] [address] [facility] [place] [address] Referral ID Status Reason Start Date Expiration Date Visits Requested Visits Authorized [id number] New Request Specialty Service Requested 02/24/2024 02/23/2025 1 1 * Consultation (Routine) - Authorized Specialty Diagnoses / Procedures Referred By Contac t Referred To Contact Cardiology Diagnoses S/P AVR Hayder Graham MD [facility] [place] [address] Cardiac Rehab, [facility] [address] [place] [address] [place] [address] Referral ID Status Reason Start Date Expiration Date Visits Requested Visits Authorized [id number] Authorized Consult, Test & Treat 02/24/2024 08/22/2024 36 36 * Home Health Care (Routine) - Authorized Specialty Diagnoses / Procedures Referred By Sixto mendoza Referred To Contact Diagnoses S/P AVR Hayder Graham MD [facility] [place] [address] Referral ID Status Reason Start Date Expiration Date Visits Requested Visits Authorized [id number] Authorized Consult, Test & Treat 02/24/2024 08/22/2024 [...] MD [facility] [place] [address] [facility] Referral ID Status Reason Start Date Expiration Date Visits Re quested Visits Authorized [id number] 1 1 Encounter Details Date Type Department Care Team (Latest Contact Info) Description 02/17/2024 5:43 AM EDT - 02/24/2024 11:23 AM EDT Hospital Encounter Heart and Vascular Unit Level 4 [place] [address] Hayder Graham MD [facility] [place] [address] S/P AVR (Primary Dx); Aortic valve stenosis, etiology of cardiac valve disease unspecified Discharge Disposition: Home with VNA Social History Tobacco Use Types Packs/Day Years Used Date Smoking Tobacco: Former Cigarettes Smokeless Tobacco: Never Comments:Quit 15 + years ago Alcohol Use Standard Drinks/Week Comments Yes 0 (1 standard drink = 0.6 oz pur e alcohol) rare [facility] Utilities Answer Date Recorded In the [...] Patient Age: 63 y.o. Birthdate: 1960 Language: Citizen Of [place] Race: White Ethnicity: Not nor Admit Date: 02/17/2024 Discharge Date: 02/24/24 Attending Physician: Hayder Graham MD Follow-up Recommendations for Providers: Please continue routine management of cardiovascular risk factors including blood pressure, lipids,glucose, etc. Please note any changes to medications. Patient to follow up with PCP, Aparna Jordan APRN, in 1-2 weeks. Patient to follow up with Reclamation Worker, Neftali Ernandez MD , in 2 weeks. Patient to follow up with Cardiac Surgeon, Dr. Hayder Graham, with a chest x-ray, EKG, and Echo. Inpatient Provider Contact Information: [facility] Section of Cardiac Surgery [facility] [place], [place] [address] FAX [phone] Discharge Diagnoses (Hospital Problems) Primary Diagnoses: /CAD [...] 33.75) performed by Hayder Graham MD at [facility] MAIN OR PRO CABG, ARTERY-VEIN, TWO N/A 02/17/2024 @CABG, TWO VENOUS GRAFTS & ARTERIAL GRAFT (WRVU 7.93) performed by Hayder Graham MD at [facility] MAIN OR PRO ENDOSCOPY W/VIDEO-ASST VEIN HARVEST, CABG Left 02/17/2024 ENDOSCOPIC HARVEST VEIN(S) FOR CABG (WRVU 0.31) performed by Hayder Graham MD at [facility] MAIN OR PRO REPLACEMENT PROSTHETIC AORTIC VALVE OPEN W CARDIOPULMONARY BYPASS HOMOGRF/STENT N/A 02/17/2024 @REPLACE AORTIC VALVE, OPEN, W\CPB, W\PROSTHETIC VALVE (WRVU 41.32) performed by Hayder Graham MD at [facility] MAIN OR Prior To Admission Medications [...] insufficiency. He has glaucoma. He used to [employer] until about 15 years ago. He has undergone prior herniorrhaphy. 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 Major Procedures/Operations: 02/17/24 s/p avr/cabgx3 CABG x 3 JOSE->LAD SVG->dRCA SVG->OM1 EVH from LLE AVR with a 23 mm Inspiris Bioprosthesis Hospital Course: Karlos Garcia was admitted to [facility] on 02/17/2024 via the Same Day [...] Hayder Graham and/or the Cardiac Surgery Physician Belly Roller Team may be reached at . Antibiotic [...] Please refer to the card with the [place] [employer] Guidelines for more information. You [...] Dr. Hayder Graham. You may use a Morris Track or treadmill but avoid any pulling [...] friends, go to a movie, go to anglican, etc. Heavy activities: No hunting, skiing, jogging, [...] should resume a low fat, low cholesterol, [place] Heart [employer] Diet. Driving: No driving until [...] while being managed by your PCP and/or Reclamation Worker. For future medication refills, please refer to your PCP and/or Reclamation Worker after your discharge from our service. Thank you REMOVE CHEST TUBE SUTURES ON OR AFTER 03/02/24 Home oxygen therapy: N/A Follow up appointments: You should follow up with your PCP, Aparna Jordan APRN, in 1-2 weeks. Our office will schedule an appointment with your Reclamation Worker, Neftali Ernandez MD , in 2 weeks. You have an appointment with your Cardiac Surgeon, Dr. Hayder Graham, 4 weeks with a chest x-ray, EKG, and Echo before your appointment. Cardiac Rehabilitation: Karlos Garcia was seen regarding participation in the outpatient Phase 2Cardiac Rehabilitation at [facility]. The patient agrees to a referral to this program. The referral will be sent at discharge and the patient should be contacted by the Program within 1- 2 weeks from discharge. Future Appointments and Orders Future Orders Complete By Expires Echocardiogram Transthoracic [15647 CPT(R)] 03/26/2024 09/25/2024 Process Instructions: Scheduling Instructions: Questions: Where will study be performed?: [facility] Clinics Does the patient have Congenital Heart Disease?: Does patient require sedation?: Sedation rationale: XR Chest PA & Lateral (Generic) [66186 66113 Custom] 03/26/2024 09/25/2024 Process Instructions: Scheduling Instructions: Questions: Portable exam?: Reason for exam and clinical history: s/p avr/cabg Clinical information / jerome questions for radiologist: Stat read required?: Date of injury if applicable: Requested Time: Where will study be performed?: [facility] Radiology Referral to Cardiac Rehab [UCZ276 Custom] As directed Process Instructions: If no progress note charted, please enter Clinical details in comments. Scheduling Instructions: Questions: My question or request is: s/p AVR/CABG. Cardiac rehab at [facility]. Referral to Home Health [REF34 Custom] As directed Process Instructions: If no progress note charted, please enter Clinical details in comments. Scheduling Instructions: Comments: Please evaluate Karlos Garcia for admission to Home Health. [address] Phone Number: Date of : 1960 Inpatient DOCUMENTATION FOR VNA SERVICES (INCLUDING THOSE PATIENTS WITH MEDICARE COVERAGE REQUIRING HOME VNA SERVICES AND/OR HOSPICE SERVICES) PATIENT'S LOCATION: Karlos Garcia [address] [place] [phone] Cna's Name: self/family In discussion with the attending physician, it is certified that this patient is under their care and that they, or a Nurse Practitioner, or Physician Belly Roller who is working directly with them, hada [...] for services as follows: HOME HEALTH AGENCY: [facility] [address] [place] [address] RN orders: Cardiopulmonary assessment, incisional assessment, assess [...] issues please call the Cardiology Office at [phone] FOR MEDICARE ONLY: (please delete this section [...] APRN [address] / [place] [address] . All VNA agencies which cover the area of patient's residence have been reviewed, either verbally or in writing, and patient/family have chosen the home health care agency noted. Questions: Disciplines Requested: Nursing Physical Therapy Arrangements for VNA/home care: As above. Signed: NEFTALI MENON PA-C [facility] Section of Cardiac Surgery [facility] [place], [place] [address] FAX [phone] Date: 02/24/2024 CC: Aparna Jordan, MAURI Jordan, Aparna Sherman APRN [address] [place] [address] documented in this encounter Discharge Instructions * [...] Hayder Graham and/or the Cardiac Surgery Physician Belly Roller Team may be reached at . Antibiotic [...] Please refer to the card with the [place] Heart [employer] Guidelines for more information. You [...] Dr. Hayder Graham. You may use a Morris Track or treadmill but avoid any pulling [...] friends, go to a movie, go to anglican, etc. Heavy activities: No hunting, skiing, jogging, [...] should resume a low fat, low cholesterol, [place] Heart [employer] Diet. Driving: No driving until [...] while being managed by your PCP and/or Reclamation Worker. For future medication refills, please refer to your PCP and/or Reclamation Worker after your discharge from our service. Thank you REMOVE CHEST TUBE SUTURES ON OR AFTER 03/02/24 Home oxygen therapy: N/A Follow up appointments: You should follow up with your PCP, Aparna Jordan APRN, in 1-2 weeks. Our office will schedule an appointment with your Reclamation Worker, Neftali Ernandez MD , in 2 weeks. You have an appointment with your Cardiac Surgeon, Dr. Hayder Graham, 4 weeks with a chest x-ray, EKG, and Echo before your appointment. Cardiac Rehabilitation: Karlos Garcia was seen regarding participation in the outpatient Phase 2Cardiac Rehabilitation at [facility]. The patient agrees to a [...] 0600 and on the weekends please page [phone]. * Eric Barahona PA - 02/23/2024 9:27 [...] 0600 and on the weekends please page [phone]. * Tiffanie Owens - 02/22/2024 2:48 PM [...] d/c for 10 days. Pt was indep CROSS TIE TURNER. He drives. He works Precautions/Special Considerations: STERNAL [...] LRAD and supervision Time IN / OUT: 7616-5258 Total Time: 30 minutes; TEFx2 Tiffanie Owens Pager: [phone] Physical Therapy Inpatient Rehabilitation Department * Romeo [...] 0600 and on the weekends please page [phone]. * Kelley Hinson, CROSS TIE TURNER - 02/21/2024 10:15 AM EDT Physical Therapy [...] d/c for 10 days. Pt was indep CROSS TIE TURNER. He drives. He works Precautions/Special Considerations: STERNAL [...] LRAD and supervision Time IN / OUT: 7756-1476 Total Time: 25 minutes; TEF 2 Kelley Hinson PTA Pager: [phone] Physical Therapy Inpatient Rehabilitation Department * Louisa [...] 0600 and on the weekends please page [phone]. * Kelley Hinson PTA - 02/20/2024 3:32 PM EDT 02/20/24 4171 Evaluation & Treatment Document Type contact Total Minutes, Physical Therapy 0 Comment, Session Not Performed Checked in w/ pt this PM for ongoing PT services, pt politely declined, stating he had been dealing w/ nausea all day, made plan to see him tomorrow morning, will f/u at that time Kelley Hinson PTA Pager: [phone] Physical Therapy Inpatient Rehab Department * Louisa [...] 0600 and on the weekends please page [phone]. * Maris Benavides, PT - 02/19/2024 11:22 [...] d/c for 10 days. Pt was indep CROSS TIE TURNER. He drives. He works. Precautions/Special Considerations: STERNAL [...] outlined inthis evaluation. MARIS BENAVIDES, PT Pager: [phone] Physical Therapy Inpatient Rehabilitation Department Time IN / OUT: 5654-4939 Total Time: 38 (eval) minutes; * Antonio [...] 0600 and on the weekends please page [phone]. * Minnie Begum PA - 02/18/2024 8:25 [...] 0600 and on the weekends please page [phone]. * Kim Ha RCP - 02/17/2024 2:25 [...] plan since last visit. Hayder Graham MD [phone] Source Note - Hayder Graham MD - [...] insufficiency. He has glaucoma. He used to [employer] until about 15 years ago. He has [...] given written informed consent. Hayder Graham MD [phone] * Hayder Graham MD - 02/17/2024 7:00 [...] given written informed consent. Hayder Graham MD [phone] documented in this encounter Miscellaneous Notes * [...] for follow-up Home Health & Hospice, [address] [place] [address] Cardiac Rehab, [address] [place] [address] Transportation: family or friend will provide Functional status prior to admission: Independent Home Environment: Others in the home: alone. Current Living Arrangements: home/apartment/condo. Accessibility Concerns:a few steps to enter 1 floor home. Current Functional Ability: Assistive Person and Equipment DME used at home: none DME Needed at Discharge: N/A Patient is insured through: Primary Insurance: [facility] Payor: [facility] / Plan: [facility] PPO / Product Type: *No Product [...] pain managed with scheduled Tylenol. Worked with [employer]. Ambulated in the roque multiple times during [...] anticipated Patient is insured through: Primary Insurance: [employer] Payor: [employer] / Plan: [facility] PPO / Product Type: *No Product type* / Secondary Insurance: N/A Last Physical Therapy Recommendation: home with home health (Str coming to stay for a week or two upon d/c) with to be determined (owns rolling walker, shower seat) Plan for discharge is: Home w/ Services Outpatient Agency/Support Group Needs: Homecare agency Home Health Services: Physical Therapy, Registered Nurse Agency Referrals: [facility]. [address] [place] [id number] Transportation: family or friend will provide Barriers to discharge: Discharge planning Plan going forward: Service Care Management will continue to follow and assist with discharge planning and coordination of care as indicated. Anticipated Date of Discharge: 02/22/2024 Rhett Bell RN RN/CM - Cellphone: [phone] Pager: [phone] Covering Service RN/CM * Plan of Care [...] Yang RN - 02/19/2024 10:44 AM EDT [facility] CARDIAC REHABILITATION Karlos Garcia was seen today regarding participation in the outpatient Phase 2 Cardiac Rehabilitation at [facility]. The patient agrees to a [...] surrogate would be surrogate decision maker per [place] surrogate decision making law. (Only good for 180 days) Any patient receiving care in [place] must abide by [place] law. The hierarchy for surrogate decision making [...] (i) The agent with financial power of commercial attorney or a conservator appointed in accordance [...] steady place to sleep or slept in [facility] (including now)?: No In the past 12 months has the Dispatch, gas, oil, or water [employer] threatened to shut off services in your [...] [address] [facility] [address] Physical address: [address] [facility], [address] Social & Family Supports: All names listed [...] noted Health/Prescription Coverage: Primary Insurance: [facility] Payor: [facility] / Plan: [facility] PPO / Product Type: *No Product type* / Secondary Insurance: N/A ; Prescription Coverage: Yes Preferred Pharmacy: [id number] AT [address] [address] [place] Status: Patient is a : No Primary Care Provider confirmed: Aparna Jordan, R AND D LAB TECHNICIAN [phone] Patient/Caregiver Goals of Treatment: dc to home Potential Needs for Transition of Care: home health care Agency Referrals: I have met with the patient to: discuss discharge planning needs. provide the [facility], Office of Care Management letter from the It Programmer Analyst pertaining to rehab referrals. provide a letter describing our affiliations within the [facility] and educate about their right to choose where referrals are sent. provide a list of Home Health Agencies / Durable Medical Equipment vendors which serve their preferred geographic area. provided patient with [facility] Star Quality Rating handout. They have requested referrals to: [facility] [address] [place] [address] Note routed to a Radiological Metallurgist who will communicate referrals to facilities and [...] Reina Greene RN CM, BSN, CMGT- Ext [phone] * Plan of Care - Binta Trinidad [...] Operative Note Patient Name: Karlos Garcia : [id number] MR#: [id number] Case Date: 02/17/2024 Surgeon: Surgeon(s) and Role: * Hayder Graham MD - Primary * Neftali Menon PA - Physician Belly Roller Preoperative diagnosis: CAD Postoperative diagnosis: CAD, intraoperative [...] and Left pleural Disposition: [facility] Condition: doing well without problems Attestation: Case Date: 02/17/2024 I performed this procedure without the involvement of a resident. HAYDER GRAHAM MD 02/17/2024 * Op Note - Hayder Graham MD - 02/17/2024 8:20 AM EDT [facility] Operative Note Patient Name: Karlos Garcia : [id number] MR#: [id number] Case Date: 02/17/2024 Surgeon: Surgeons and Role: * Hayder Graham MD - Primary * Neftali Menon PA - Physician Belly Roller Preoperative diagnosis: CAD Postoperative diagnosis: CAD, intraoperative [...] and Left pleural Disposition: [facility] Procedure Description: The patient was brought [...] PM EST Office Visit Cardiology at [address] [place] [address] Neftali Ernandez MD [facility] [place] [address] Scheduled Orders Name Type Priority Associated Diagnoses [...] Aortic Valve Open W Cardiopulmonary Bypass Homogrf/Stent (31839) Yes 02/17/2024 7:28 AM EDT CAD Cabg, Artery-Vein, Two (56296) Yes 02/17/2024 7:28 AM EDT CAD Cabg, Arterial, Single (89089) Yes 02/17/2024 7:28 AM EDT CAD Endoscopy W/Video-Asst Vein Dixon, Cabg (73064) Yes 02/17/2024 7:28 AM EDT CAD POCT GLUCOSE Routine 02/17/2024 6:38 AM EDT TRANSESOPHAGEAL ECHOCARDIOGRAM IN THE OR Routine 02/17/2024 6:33 AM EDT Aortic valve stenosis, etiology of cardiac valve disease unspecified LAB SCAN 02/17/2024 12:00 AM EDT IMPLANTABLE DEVICES SCAN 02/17/2024 12:00 AM EDT documented in this encounter Results * Potassium (02/24/2024 4:42 AM EDT) Potassium 4.0 3.5 - 5.0 mmol/L [facility] [...] Lab Hayder Graham MD CHEMISTRY ORDERABLE S [facility] [place] [address] * (ABNORMAL) Basic Metabolic Panel (non-fasting) (02/23/2024 4:24 AM EDT) Glucose 117 65 - 199 mg/dL [facility] Comment:Diabetes: >=200 mg/d L plus symptoms Blood Urea Nitrogen 18 10 - 20 mg/dL [facility] [...] - 107 mmol/L [facility] Carbon Dioxide 26 22 - 31 mmol/L [facility] Anion Gap 11 5 - 15 mmol/L [facility] Calcium 8.8 8.5 - 10.5 mg/dL [facility] Est Glomerular Filtration Rate 102 >=60 mL/min/1. 73 m?? [facility] [...] MD CHEMISTRY ORDERABLES [facility] [place] [address] * Potassium (02/22/2024 4:30 AM EDT) Potassium 3.5 3.5 - 5.0 mmol/L [facility] [...] Lab Hayder Graham MD CHEMISTRY ORDERABLE S [facility] [place] [address] * (ABNORMAL) Basic Metabolic Panel (non-fasting) (02/21/2024 9:45 AM EDT) Glucose 123 65 - 199 mg/dL [facility] Comment:Diabetes: >=200 mg/d L plus symptoms Blood Urea Nitrogen 22(H) 10 - 20 mg/dL [facility] Creatinine 0.78(L) 0.80 - 1.50 mg/dL [facility] Sodium 140 135 - 145 mmol/L [facility] Potassium 3.9 3.5 - 5.0 mmol/L [facility] Comment: Please note: ??Patients with WBC >100,000 may have falsely elevated Potassium levels. ??For accurate Potassium quantification in these patients send serum separator tube (gold top) for subsequent determinations. ??Contact the Clinical Chemistry Laboratory if there are any questions. Chloride 100 98 - 107 mmol/L [facility] Carbon Dioxide Not Perf 22 - 31 [facility] Comment:Add-on request. Samp le too old to perform test. Anion Gap Unable to Calculate 5 - 15 mmol/L [facility] Calcium 8.6 8.5 - 10.5 mg/dL [facility] Est Glomerular Filtration Rate 100 >=60 mL/min/1 .73 m?? [facility] Comment: This [...] Carpio MD CHEMISTRY ORDERABLES Performing Organization Address City/[facility]/ZIP Co de Phone Number [facility] [place] [address] * Lactate, whole blood, send to lab ([facility]) (02/21/2024 9:45 AM EDT) [facility] Lactate WB 2.0 0.5 - 2.2 mmol/L [facility] Blood 02/21/2024 9:45 AM EDT 02/21/2024 9:52 AM EDT Narrative Resulting Agency Comment Spec In Lab Hayder Graham MD CHEMISTRY ORDERABLE S Performing Organization Address City/[facility]/ZIP Co de Phone Number [facility] [place] [address] * (ABNORMAL) Hepatic Function Panel (02/21/2024 9:45 AM EDT) [facility] Protein, Total 5.7(L) 6.1 - 8.0 g/dL [facility] Albumin 3.3 3.2 - 5.2 g/dL [facility] Aspartate Aminotransferase 13 0 - 39 unit/L [facility] Alanine Aminotransferase 16 0 - 55 unit/L [facility] Alkaline Phosphatase 63 40 - 130 unit/L [facility] Bilirubin, Total 0.6 0.2 - 1.3 mg/dL [facility] Bilirubin, Direct 0.2 0.0 - 0.3 mg/dL [facility] Blood 02/21/2024 9:45 AM EDT 02/21/2024 9:52 AM EDT Narrative Resulting Agency Comment Spec In Lab Hayder Graham MD CHEMISTRY ORDERABLE S Performing Organization Address City/[facility]/ZIP Co de Phone Number [facility] [place] [address] * Lipase (02/21/2024 9:45 AM EDT) Lipase 56 0 - 60 unit/L [facility] Blood 02/21/2024 9:45 AM EDT 02/21/2024 9:52 AM EDT Narrative Resulting Agency Comment Spec In Lab Hayder Graham MD CHEMISTRY ORDERABLE S Performing Organization Address [facility] Co de Phone Number [facility] [place] [address] * Amylase (02/21/2024 9:45 AM EDT) Amylase 69 28 - 100 unit/L [facility] Blood 02/21/2024 9:45 AM EDT 02/21/2024 9:52 AM EDT Narrative Resulting Agency Comment Spec In Lab Hayder Graham MD CHEMISTRY ORDERABLE S Performing Organization Address [facility] Co de Phone Number [facility] [place] [address] * Potassium (02/21/2024 3:08 AM EDT) Potassium 3.8 3.5 - 5.0 mmol/L [facility] [...] Lab Hayder Graham MD CHEMISTRY ORDERABLE S [facility] [place] [address] * XR Chest PA & Lateral (Generic) (02/20/2024 10:19 AM EDT) WORKSTATION ID [id number] RAD Anatomical Region Laterality Modality Chest N/A [...] signed by: Rogerio Cruz MD, [facility] ??([phone]), at 02/20/2024 1:11 PM Narrative 02/20/2024 1:11 PM EDT EXAMINATION: XR CHEST PA AND LATERAL (GENERIC) CLINICAL HISTORY: s/p AVR/CABGx3 TECHNIQUE: PA and lateral views of the chest COMPARISON: 02/17/2024 FINDINGS: Support devices: Interval removal of Portage-Kaila catheter, endotracheal tube and mediastinal chest tubes The cardiac silhouette is stable status post median sternotomy, CABG and aortic valve replacement. There are small pleural effusions. No pneumothorax. Procedure Note Rogerio Cruz MD - 02/20/2024 EXAMINATION: XR CHEST PA AND LATERAL (GENERIC) CLINICAL HISTORY: s/p AVR/CABGx3 TECHNIQUE: PA and lateral views of the chest COMPARISON: 02/17/2024 FINDINGS: Support devices: Interval removal of Portage-Kaila catheter, endotracheal tubeand mediastinal chest tubes The [...] education teacher that requested your imaging first. Hayder Graham MD IMG DX ORDERABLES * Scan, Peripheral Blood (02/20/2024 4:23 AM EDT) Pathologist [facility] Plat estimate Decreased [facility] RBC Morphology Normal [facility] Blood 02/20/2024 4:23 AM EDT 02/20/2024 4:42 AM EDT Narrative Resulting Agency Comment Spec In Lab Minnie FRENCH HEMATOLOGY CECILIO ALEMAN Performing Organization Address City/State/[facility] Co de Phone Number [facility] [place] [address] * (ABNORMAL) Differential, Automated (02/20/2024 4:23 AM EDT) [facility] Neutrophil % 81.7 % [facility] Neutrophil Absolute 10.37(H) 1.70 - 6.10 x10(3)/mc L [facility] Lymph % 7.4 % [facility] Lymphocytes Abs 0.9 0.9 - 3.2 x10(3)/mc L [facility] Monocyte % 9.7 % [facility] Monocyte Abs 1.2(H) 0.3 - 0.9 x10(3)/mc L [facility] Eos % 0.1 % [facility] Eosinophils Abs 0.0 0.0 - 0.4 x10(3)/[facility] Basophil % 0.2 % [facility] Baso Absolute 0.0 0.0 - 0.1 x10(3)/[facility] Immature Gran % 0.90 % [facility] Comment: Immature granulocytes(IG's)percentage and absolute count will include metamyelocytes, myelocytes, and promyelocytes. Blood smears from CBCs yielding IG's will be scanned manually for concordance. If this scan disagrees with the automated IG or if promyelocytes are noted, a manual differential will be performed. Immature Gran Absolute 0.12(H) 0.00 - 0.04 x10(3)/[facility] Blood 02/20/2024 4:23 AM EDT 02/20/2024 4:42 AM EDT Narrative Resulting Agency Comment Spec In Lab Minnie FRENCH HEMATOLOGY CECILIO ALEMAN [facility] [place] [address] * (ABNORMAL) Hemogram (02/20/2024 4:23 AM EDT) White Blood Cell 12.7(H) 4.0 - 9.5 x10(3)/[facility] Red Blood Cell 4.26(L) 4.58 - 5.54 x10(6)/[facility] Hemoglobin 12.3(L) 13.7 - 16.5 g/dL [facility] Hematocrit 37.1(L) 40.5 - 48.5 % [facility] Mean Cell Volume 87.1 82.9 - 93.1 fL [facility] Mean Cell Hemoglobin 28.9 27.5 - 32.1 pg [facility] Mean Cell Hemoglobin Concentration 33.2 32.0 - 35.7 g/dL [facility] Platelet 88(L) 145 - 357 x10(3)/mc L [facility] RDW Standard Deviation 43.5 36.0 - 45.0 fL [facility] RDW coefficient of variation 13.7 11.4 - 13.8 % [facility] Mean Platelet Volume 10.2 7.6 - 12.9 fL [facility] NRBC% auto 0.0 % [facility] NRBC Absolute 0.000 0.000 - 0.000 x10(3)/mc L [facility] Blood 02/20/2024 4:23 AM EDT 02/20/2024 4:42 AM EDT Narrative Resulting Agency Comment Spec In Lab Minnie FRENCH HEMATOLOGY CECILIO ALEMAN [facility] [place] [address] * (ABNORMAL) Basic Metabolic Panel (non-fasting) (02/20/2024 4:23 AM EDT) Glucose 113 65 - 199 mg/dL [facility] Comment:Diabetes: >=200 mg/d L plus symptoms Blood Urea Nitrogen 20 10 - 20 mg/dL [facility] Comment:result rechecked-[place] Creatinine 0.71(L) 0.80 - 1.50 mg/dL [facility] Sodium 135 135 - 145 mmol/L [facility] Potassium 3.9 3.5 - 5.0 mmol/L [facility] Comment: Please note: ??Patients with WBC >100,000 may have falsely elevated Potassium levels. ??For accurate Potassium quantification in these patients send serum separator tube (gold top) for subsequent determinations. ??Contact the Clinical Chemistry Laboratory if there are any questions. Chloride 102 98 - 107 mmol/L [facility] Carbon Dioxide 25 22 - 31 mmol/L [facility] Anion Gap 8 5 - 15 mmol/L [facility] Calcium 8.7 8.5 - 10.5 mg/dL [facility] Comment:result rechecked-[place] Est Glomerular Filtration Rate 102 >=60 mL/min/1. 73 m?? [facility] [...] MD CHEMISTRY ORDERABLE S Performing Organization Address [facility] Co de Phone Number [facility] [place] [address] * Potassium (02/19/2024 3:57 AM EDT) [facility] Potassium 4.3 3.5 - 5.0 mmol/L [facility] MD CHEMISTRY ORDERABLE S Performing Organization Address [facility]/ZIP Co de Phone Number [facility] [place] [address] * POCT Glucose (02/18/2024 8:24 AM EDT) Glucose, POC 157 65 - 199 mg/dL [facility] Comment: Supplemental ranges: <140 mg/dL before meals <180 mg/dL all other times of the day Blood 02/18/2024 8:24 AM EDT 02/18/2024 8:24 AM EDT Hadyer Graahm MD POINT OF CARE TEST ORDERABLES Performing Organization Address City/[facility]/ZIP Co de Phone Number [facility] [place] [address] * Scan, Peripheral Blood (02/18/2024 1:40 AM EDT) [facility] Plat estimate Decreased [facility] RBC Morphology Normal [facility] Blood 02/18/2024 1:40 AM EDT 02/18/2024 1:56 AM EDT Narrative Resulting Agency Comment Spec In Lab Neftali FRENCH HEMATOLOGY ORDER OLE Performing Organization Address City/[facility]/ZIP Co de Phone Number [facility] [place] [address] * (ABNORMAL) Differential, Automated (02/18/2024 1:40 AM EDT) [facility] Neutrophil % 87.1 % [facility] Neutrophil Absolute 15.03(H) 1.70 - 6.10 x10(3)/mc L [facility] Lymph % 3.0 % [facility] Lymphocytes Abs 0.5(L) 0.9 - 3.2 x10(3)/mc L [facility] Monocyte % 9.1 % [facility] Monocyte Abs 1.6(H) 0.3 - 0.9 x10(3)/mc L [facility] Eos % 0.0 % [facility] Eosinophils Abs 0.0 0.0 - 0.4 x10(3)/mc L [facility] Basophil % 0.2 % [facility] Baso Absolute 0.0 0.0 - 0.1 x10(3)/mc L [facility] Immature Gran % 0.60 % [facility] Comment: Immature granulocytes(IG's)percentage and absolute count will include metamyelocytes, myelocytes, and promyelocytes. Blood smears from CBCs yielding IG's will be scanned manually for concordance. If this scan disagrees with the automated IG or if promyelocytes are noted, a manual differential will be performed. Immature Gran Absolute 0.10(H) 0.00 - 0.04 x10(3)/ L [facility] Blood 02/18/2024 1:40 AM EDT 02/18/2024 1:56 AM EDT Narrative Resulting Agency Comment Spec In Lab Neftali FRENCH HEMATOLOGY ORDER OLE [facility] [place] [address] * (ABNORMAL) Hemogram (02/18/2024 1:40 AM EDT) White Blood Cell 17.2(H) 4.0 - 9.5 x10(3)/ L [facility] Red Blood Cell 4.71 4.58 - 5.54 x10(6)/mc L [facility] Hemoglobin 13.7 13.7 - 16.5 g/dL [facility] Hematocrit 39.2(L) 40.5 - 48.5 % [facility] Mean Cell Volume 83.2 82.9 - 93.1 fL [facility] Mean Cell Hemoglobin 29.1 27.5 - 32.1 pg [facility] Mean Cell Hemoglobin Concentration 34.9 32.0 - 35.7 g/dL [facility] Platelet 147 145 - 357 x10(3)/mc L [facility] RDW Standard Deviation 39.9 36.0 - 45.0 fL [facility] RDW coefficient of variation 13.2 11.4 - 13.8 % [facility] Mean Platelet Volume 9.9 7.6 - 12.9 fL [facility] NRBC% auto 0.0 % [facility] NRBC Absolute 0.000 0.000 - 0.000 x10(3)/mc L [facility] Blood 02/18/2024 1:40 AM EDT 02/18/2024 1:56 AM EDT Narrative Resulting Agency Comment Spec In Lab Neftali FRENCH HEMATOLOGY ORDER OLE [facility] [place] [address] * (ABNORMAL) Basic Metabolic Panel (non-fasting) (02/18/2024 1:40 AM EDT) Glucose 176 65 - 199 mg/dL [facility] Comment:Diabetes: >=200 mg/d L plus symptoms Blood Urea Nitrogen 10 10 - 20 mg/dL [facility] Creatinine 0.65(L) 0.80 - 1.50 mg/dL [facility] Sodium 135 135 - 145 mmol/L [facility] Potassium 4.2 3.5 - 5.0 mmol/L [facility] Comment: Please note: ??Patients with WBC >100,000 may have falsely elevated Potassium levels. ??For accurate Potassium quantification in these patients send serum separator tube (gold top) for subsequent determinations. ??Contact the Clinical Chemistry Laboratory if there are any questions. Chloride 106 98 - 107 mmol/L [facility] Carbon Dioxide 20(L) 22 - 31 mmol/L [facility] Anion Gap 9 5 - 15 mmol/L [facility] Calcium 7.6(L) 8.5 - 10.5 mg/dL [facility] Est Glomerular Filtration Rate 105 >=60 mL/min/1. 73 m?? [facility] [...] Lab Hayder Graham MD CHEMISTRY ORDERABLE S [facility] [place] [address] * (ABNORMAL) Troponin (02/18/2024 1:40 AM EDT) Troponin-T, High Sensitivity 342(H) <=22 ng/L [facility] [...] value can be found in the [facility] Test Catalog Troponin - [facility] Test Catalog Reference: Fourth [place] Definition of Myocardial Infarction. Journal of the [place] [employer] 2018;72:0707-5116 Blood 02/18/2024 1:40 AM EDT 02/18/2024 1:56 AM EDT Narrative Resulting Agency Comment Spec In Lab Hayder Graham MD CHEMISTRY ORDERABLE S [facility] [place] [address] * POCT Glucose (02/17/2024 8:13 PM EDT) Glucose, POC 142 65 - 199 mg/dL [facility] Comment: Supplemental ranges: <140 mg/dL before meals <180 mg/dL all other times of the day Blood 02/17/2024 8:13 PM EDT 02/17/2024 8:13 PM EDT Hayder Graham MD POINT OF CARE TEST ORDERABLES Performing Organization Address [facility]/ZIP Co de Phone Number [facility] [place] [address] * POCT Glucose (02/17/2024 5:42 PM EDT) Glucose, POC 160 65 - 199 mg/dL [facility] Comment: Supplemental ranges: <140 mg/dL before meals <180 mg/dL all other times of the day Blood 02/17/2024 5:42 PM EDT 02/17/2024 5:42 PM EDT Hayder Graham MD POINT OF CARE TEST ORDERABLES Performing Organization Address City/[facility]/ZIP Co de Phone Number [facility] [place] [address] * Hemoglobin (02/17/2024 5:42 PM EDT) Hemoglobin 13.7 13.7 - 16.5 g/dL [facility] Blood 02/17/2024 5:42 PM EDT 02/17/2024 6:10 PM EDT Narrative Resulting Agency Comment Spec In Lab Hayder Graham MD HEMATOLOGY ORDERABL ES Performing Organization Address [facility] Co de Phone Number [facility] [place] [address] * Potassium (02/17/2024 5:42 PM EDT) Potassium 4.3 3.5 - 5.0 mmol/L [facility] [...] MD CHEMISTRY ORDERABLE S Performing Organization Address [facility] de Phone Number [facility] [place] [address] * (ABNORMAL) BLOOD GAS 2 ARTERIAL (02/17/2024 4:18 PM EDT) pH, Arterial 7.34(L) 7.35 - 7.45 [facility] PCO2, Arterial 40 35 - 45 mmHg [facility] PO2, Arterial 78(L) 85 - 104 mmHg [facility] Bicarbonate, Arterial 20.8 20.0 - 26.0 mmol/L [facility] Base Excess, Arterial -5.1(L) -3.0 - 3.0 mmol/L [facility] Hgb Blood Gas 14.6 13.7 - 16.5 g/dL [facility] Oxyhemoglobin, Arterial 93.0(L) 94.0 - 97.0 % [facility] Carboxyhemoglob in, Arterial 0.3 % [facility] Comment: Nonsmokers: 0.5-1.5% COHB Smokers: Variable, but usually less than 10% Toxic: 20-30% COHB Lethal: Greater than 60% COHB Methemoglobin, Arterial 0.8 <=1.5 % [facility] Na Whole Blood 136 135 [...] [facility] FIO2 Art 40 % [facility] PF Ratio Art 195 [facility] Blood 02/17/2024 4:18 PM EDT 02/17/2024 4:18 PM EDT Hayder Graham MD POINT OF CARE TEST ORDERABLES Performing Organization Address City/State/[facility] Co de Phone Number [facility] [place] [address] * XR Chest One View (02/17/2024 1:44 PM EDT) WORKSTATION ID [id number] RAD Anatomical Region Laterality Modality Chest N/A Digital Radiogra phy Impressions 02/17/2024 2:12 PM EDT 1. ??No definite pleural fluid collection or pneumothorax. 2. ??Right IJ Portage-Kaila catheter tip terminates in a descending branch [...] MD, [facility] ??([phone]), at 02/17/2024 2:12 PM Narrative 02/17/2024 2:12 PM EDT EXAMINATION: XR CHEST ONE VIEW CLINICAL HISTORY: s/p avr/cabg eval effusions TECHNIQUE: 1 view of the chest COMPARISON: Chest x-ray 01/09/2024, chest CT 02/03/2024 FINDINGS: ET tube tip terminates 5.2 cm above the carlos. Right IJ Portage-Kaila catheter tip terminates in a descending branch [...] 5.2 cm above the carlos. Right IJ Portage-Ganzcatheter tip terminates in a descending branch of [...] fluid collection or pneumothorax. 2. 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 Electronically signed by: Denzel Hankins MD, [facility]([phone]), at 02/17/2024 2:12 PM Hayder Graham MD IMG DX ORDERABLES * (ABNORMAL) BLOOD GAS 2 ARTERIAL (02/17/2024 1:31 PM EDT) pH, Arterial 7.35 7.35 - 7.45 [facility] PCO2, Arterial 39 35 - 45 mmHg [facility] PO2, Arterial 320(H) 85 - 104 mmHg [facility] Bicarbonate, Arterial 21.4 20.0 - 26.0 mmol/L [facility] Base Excess, Arterial -4.2(L) -3.0 - 3.0 mmol/L [facility] Hgb Blood Gas 14.1 13.7 - 16.5 g/dL [facility] Oxyhemoglobin, Arterial 97.9(H) 94.0 - 97.0 % [facility] Carboxyhemoglob in, Arterial 0.3 % [facility] Comment: Nonsmokers: 0.5-1.5% COHB Smokers: Variable, but usually less than 10% Toxic: 20-30% COHB Lethal: Greater than 60% COHB Methemoglobin, Arterial 0.7 <=1.5 % [facility] Na Whole Blood 137 135 - 145 mmol/L [facility] K Whole Blood 4.2 3.5 - 5.0 mmol/L [facility] Comment: Please note: Patients with WBC >100,000 may have falsely elevated Potassium levels. Contact the Clinical Chemistry Laboratory if there are any questions. ICa Whole Blood 1.13(L) 1.15 - 1.33 mmol/L [facility] Comment: Note: ??Total bilirubin higher than 20 mg/dL may lead to falsely low ionized calcium. CL Whole Blood 108(H) 98 - 107 mmol/L [facility] Gluc Whole Bld 136 65 - 199 mg/dL [facility] Comment:Diabetes: >=200 mg/d L plus symptoms. Lactate WB 1.1 0.5 - 2.2 mmol/L [facility] FIO2 Art 100 % [facility] PF Ratio Art 320 [facility] Blood 02/17/2024 1:31 PM EDT 02/17/2024 1:31 PM EDT Hayder Graham MD POINT OF CARE TEST ORDERABLES Performing Organization Address City/State/[facility] Co de Phone Number [facility] [place] [address] * (ABNORMAL) Coox2 (02/17/2024 1:21 PM EDT) pO2, Coox 44 mmHg [facility] Hgb Blood Gas 13.1(L) 13.7 - 16.5 g/dL [facility] Oxyhemoglobin, Coox 76.4 % [facility] Carboxyhemoglo bin, Coox 0.3 % [facility] Comment: Nonsmokers: 0.5-1.5% COHB Smokers: Variable, but usually less than 10% Toxic: 20-30% COHB Lethal: Greater than 60% COHB Methemoglobin, Coox 0.8 <=1.5 % [facility] Source Coox Mixed Venous [facility] Blood 02/17/2024 1:21 PM EDT 02/17/2024 1:21 PM EDT Hayder Graham MD POINT OF CARE TEST ORDERABLES [facility] [place] [address] * (ABNORMAL) BLOOD GAS 2 ARTERIAL (02/17/2024 12:14 PM EDT) pH, Arterial 7.39 7.35 - 7.45 [facility] PCO2, Arterial 40 35 - 45 mmHg [facility] PO2, Arterial 338(H) 85 - 104 mmHg [facility] Bicarbonate, Arterial 23.7 20.0 - 26.0 mmol/L [facility] Base Excess, Arterial -1.3 -3.0 - 3.0 mmol/L [facility] Hgb Blood Gas 11.0(L) 13.7 - 16.5 g/dL [facility] Oxyhemoglobin, Arterial 98.8(H) 94.0 - 97.0 % [facility] Carboxyhemoglob in, Arterial 0.3 % [facility] Comment: Nonsmokers: 0.5-1.5% COHB Smokers: Variable, but usually less than 10% Toxic: 20-30% COHB Lethal: Greater than 60% COHB Methemoglobin, Arterial 0.3 <=1.5 % [facility] Na Whole Blood 135 135 - 145 mmol/L [facility] K Whole Blood 5.1(H) 3.5 - 5.0 mmol/L [facility] Comment: Please note: Patients with WBC >100,000 may have falsely elevated Potassium levels. Contact the Clinical Chemistry Laboratory if there are any questions. ICa Whole Blood 1.13(L) 1.15 - 1.33 mmol/L [facility] Comment: Note: ??Total bilirubin higher than 20 mg/dL may lead to falsely low ionized calcium. CL Whole Blood 106 98 - 107 mmol/L [facility] Gluc Whole Bld 132 65 - 199 mg/dL [facility] Comment:Diabetes: >=200 mg/d L plus symptoms. Lactate WB 1.4 0.5 - 2.2 mmol/L [facility] Blood 02/17/2024 12:1 4 PM EDT 02/17/2024 12:14 PM EDT Hayder Graham MD POINT OF CARE TEST ORDERABLES Performing Organization Address [facility] de Phone Number [facility] [place] [address] * (ABNORMAL) Fibrinogen (02/17/2024 12:10 PM EDT) Fibrinogen 154(L) 200 - 393 mg/dL [facility] [...] MD HEMATOLOGY ORDERABLE S Performing Organization Address [facility] Co de Phone Number [facility] [place] [address] * (ABNORMAL) Thrombin time (02/17/2024 12:10 PM [...] MD HEMATOLOGY ORDERABLE S Performing Organization Address [facility] de Phone Number [facility] [place] [address] * APTT (02/17/2024 12:10 PM EDT) Partial Thromboplastin Time 33 25 - 37 sec [facility] [...] MD HEMATOLOGY ORDERABLE S Performing Organization Address [facility] de Phone Number [facility] [place] [address] * (ABNORMAL) Prothrombin Time (02/17/2024 12:10 PM EDT) Prothrombin Time 16.7(H) 9.4 - 12.5 sec [facility] Comment: OR Result called by ?? LOMARL OR Results read back by: ? alondra pagan at 2024-02-17 12:41:48 International Normalization Ratio 1.5 [facility] Comment: OR Result [...] Lab Tara York MD HEMATOLOGY ORDERABLE S [facility] [place] [address] * (ABNORMAL) Hemogram (02/17/2024 12:10 PM EDT) White Blood Cell 11.1(H) 4.0 - 9.5 x10(3)/mc L [facility] Red Blood Cell 3.50(L) 4.58 - 5.54 x10(6)/mc L [facility] Hemoglobin 10.4(L) 13.7 - 16.5 g/dL [facility] Hematocrit 30.2(L) 40.5 - 48.5 % [facility] Comment: This result has been called to ALONDRA PAGAN by Eddie López on 02 17 2024 at 1226, and has been read back. Mean Cell Volume 86.3 82.9 - 93.1 fL [facility] Mean Cell Hemoglobin 29.7 27.5 - 32.1 pg [facility] Mean Cell Hemoglobin Concentration 34.4 32.0 - 35.7 g/dL [facility] Platelet 118(L) 145 - 357 x10(3)/mc L [facility] RDW Standard Deviation 40.2 36.0 - 45.0 fL [facility] RDW coefficient of variation 12.8 11.4 - 13.8 % [facility] Mean Platelet Volume 9.5 7.6 - 12.9 fL [facility] NRBC% auto 0.0 % [facility] NRBC Absolute 0.000 0.000 - 0.000 x10(3)/mc L [facility] Blood 02/17/2024 12:1 0 PM EDT 02/17/2024 12:19 PM EDT Narrative Resulting Agency Comment Spec In Lab Tara York MD HEMATOLOGY ORDERABLE S [facility] [address] [place] [address] * (ABNORMAL) BLOOD GAS 2 ARTERIAL (02/17/2024 11:43 AM EDT) pH, Arterial 7.38 7.35 - 7.45 [facility] PCO2, Arterial 40 35 - 45 mmHg [facility] PO2, Arterial 304(H) 85 - 104 mmHg [facility] Bicarbonate, Arterial 23.2 20.0 - 26.0 mmol/L [facility] Base Excess, Arterial -1.9 -3.0 - 3.0 mmol/L [facility] Hgb Blood Gas 11.1(L) 13.7 - 16.5 g/dL [facility] Oxyhemoglobin, Arterial 98.6(H) 94.0 - 97.0 % [facility] Carboxyhemoglob in, Arterial 0.3 % [facility] Comment: Nonsmokers: 0.5-1.5% COHB Smokers: Variable, but usually less than 10% Toxic: 20-30% COHB Lethal: Greater than 60% COHB Methemoglobin, Arterial 0.3 <=1.5 % [facility] Na Whole Blood 133(L) 135 - 145 mmol/L [facility] K Whole Blood 6.2(Critic al) 3.5 - 5.0 mmol/L [facility] Comment: Noted by instrumentation designer. Please note: Patients with WBC >100,000 may have falsely elevated Potassium levels. Contact the Clinical Chemistry Laboratory if there are any questions. ICa Whole Blood 0.97(L) 1.15 - 1.33 mmol/L [facility] Comment: Note: ??Total bilirubin higher than 20 mg/dL may lead to falsely low ionized calcium. CL Whole Blood 104 98 - 107 mmol/L [facility] Gluc Whole Bld 128 65 - 199 mg/dL [facility] Comment:Diabetes: >=200 mg/d L plus symptoms. Lactate WB 1.1 0.5 - 2.2 mmol/L [facility] Blood 02/17/2024 11:4 3 AM EDT 02/17/2024 11:43 AM EDT Hayder Graham MD POINT OF CARE TEST ORDERABLES [facility] [place] [address] * (ABNORMAL) BLOOD GAS 2 ARTERIAL (02/17/2024 11:08 AM EDT) pH, Arterial 7.38 7.35 - 7.45 [facility] PCO2, Arterial 38 35 - 45 mmHg [facility] PO2, Arterial 334(H) 85 - 104 mmHg [facility] Bicarbonate, Arterial 22.0 20.0 - 26.0 mmol/L [facility] Base Excess, Arterial -3.2(L) -3.0 - 3.0 mmol/L [facility] Hgb Blood Gas 10.8(L) 13.7 - 16.5 g/dL [facility] Oxyhemoglobin, Arterial 98.7(H) 94.0 - 97.0 % [facility] Carboxyhemoglob in, Arterial 0.3 % [facility] Comment: Nonsmokers: 0.5-1.5% COHB Smokers: Variable, but usually less than 10% Toxic: 20-30% COHB Lethal: Greater than 60% CO[facility] Methemoglobin, Arterial 0.3 <=1.5 % [facility] [facility] Na Whole Blood 131(L) 135 - 145 mmol/L [facility] K Whole Blood 6.4(Critic al) 3.5 - 5.0 mmol/L [facility] Comment: Noted by instrumentation designer. Please note: Patients with WBC >100,000 may have falsely elevated Potassium levels. Contact the Clinical Chemistry Laboratory if there are any questions. ICa Whole Blood 0.98(L) 1.15 - 1.33 mmol/L [facility] Comment: Note: ??Total bilirubin higher than 20 mg/dL may lead to falsely low ionized calcium. CL Whole Blood 104 98 - 107 mmol/L [facility] Gluc Whole Bld 127 65 - 199 mg/dL [facility] Comment:Diabetes: >=200 mg/d L plus symptoms. Lactate WB 1.0 0.5 - 2.2 mmol/L [facility] Blood 02/17/2024 11:0 8 AM EDT 02/17/2024 11:08 AM EDT Hayder Graham MD POINT OF CARE TEST ORDERABLES Performing Organization Address City/[facility]/ZIP [place] [address] * (ABNORMAL) Hemoglobin and Hematocrit, blood (02/17/2024 [...] Lab Hayder Graham MD HEMATOLOGY ORDERABL ES [facility] [place] [address] * (ABNORMAL) Platelet count (02/17/2024 11:04 AM EDT) Platelet 106(L) 145 - 357 x10(3)/mc L [facility] Immature Plt % 1.6 0.0 - 7.4 % [facility] Comment: Limitation of the Immature Platelet Fraction (IPF)-May be less reliable when the platelet count is less than 23i090/uL due to statistical imprecision. The IPF value [...] in a decreased state of production. References: [employer] The Clinical Value of the Immature Platelet Fraction (IPF) in Cell Recovery Document Number [id number] 03/2011 [employer] The Role of the Immature Platelet Fraction (IPF) in the Differential Diagnosis of Thrombocytopenia, Document [id number] V002/15/14 P014 Blood 02/17/2024 11:0 4 AM EDT 02/17/2024 11:12 AM EDT Narrative Resulting Agency Comment Spec In Lab Hayder Graham MD HEMATOLOGY ORDERABL ES [facility] [place] [address] * (ABNORMAL) Fibrinogen (02/17/2024 11:04 AM EDT) Pathologist [facility] Fibrinogen 149(L) 200 - 393 mg/dL [facility] Lab Hayder Graham MD HEMATOLOGY ORDERABL ES [facility] [place] [address] * (ABNORMAL) BLOOD GAS 2 ARTERIAL (02/17/2024 10:41 AM EDT) pH, Arterial 7.37 7.35 - 7.45 [facility] PCO2, Arterial 44 35 - 45 mmHg [facility] PO2, Arterial 335(H) 85 - 104 mmHg [facility] Bicarbonate, Arterial 24.9 20.0 - 26.0 mmol/L [facility] Base Excess, Arterial -0.4 -3.0 - 3.0 mmol/L [facility] Hgb Blood Gas 11.5(L) 13.7 - 16.5 g/dL [facility] Oxyhemoglobin, Arterial 98.9(H) 94.0 - 97.0 % [facility] Carboxyhemoglob in, Arterial 0.1 % [facility] Comment: Nonsmokers: 0.5-1.5% COHB Smokers: Variable, but usually less than 10% Toxic: 20-30% COHB Lethal: Greater than 60% COHB Methemoglobin, Arterial 0.3 <=1.5 % [facility] Na Whole Blood 132(L) 135 - 145 mmol/L [facility] K Whole Blood 5.9(H) 3.5 - 5.0 mmol/L [facility] Comment: Please note: Patients with WBC >100,000 may have falsely elevated Potassium levels. Contact the Clinical Chemistry Laboratory if there are any questions. ICa Whole Blood 1.02(L) 1.15 - 1.33 mmol/L [facility] Comment: Note: ??Total bilirubin higher than 20 mg/dL may lead to falsely low ionized calcium. CL Whole Blood 104 98 - 107 mmol/L [facility] Gluc Whole Bld 129 65 - 199 mg/dL [facility] Comment:Diabetes: >=200 mg/d L plus symptoms. Lactate WB 1.1 0.5 - 2.2 mmol/L [facility] Blood 02/17/2024 10:4 1 AM EDT 02/17/2024 10:41 AM EDT Hayder Graham MD POINT OF CARE TEST ORDERABLES Performing Organization Address City/State/[facility] Co de Phone Number [facility] [place] [address] * (ABNORMAL) BLOOD GAS 2 ARTERIAL (02/17/2024 10:06 AM EDT) pH, Arterial 7.38 7.35 - 7.45 [facility] PCO2, Arterial 42 35 - 45 mmHg [facility] PO2, Arterial 329(H) 85 - 104 mmHg [facility] Bicarbonate, Arterial 24.7 20.0 - 26.0 mmol/L [facility] Base Excess, Arterial -0.3 -3.0 - 3.0 mmol/L [facility] Hgb Blood Gas 11.0(L) 13.7 - 16.5 g/dL [facility] Oxyhemoglobin, Arterial 99.0(H) 94.0 - 97.0 % [facility] Carboxyhemoglob in, Arterial 0.3 % [facility] Comment: Nonsmokers: 0.5-1.5% COHB Smokers: Variable, but usually less than 10% Toxic: 20-30% COHB Lethal: Greater than 60% COHB Methemoglobin, Arterial 0.3 <=1.5 % [facility] Na Whole Blood 132(L) 135 - 145 mmol/L [facility] K Whole Blood 6.0(H) 3.5 - 5.0 mmol/L [facility] Comment: Please note: Patients with WBC >100,000 may have falsely elevated Potassium levels. Contact the Clinical Chemistry Laboratory if there are any questions. ICa Whole Blood 0.97(L) 1.15 - 1.33 mmol/L [facility] Comment: Note: ??Total bilirubin higher than 20 mg/dL may lead to falsely low ionized calcium. CL Whole Blood 102 98 - 107 mmol/L [facility] Gluc Whole Bld 123 65 - 199 mg/dL [facility] Comment:Diabetes: >=200 mg/d L plus symptoms. Lactate WB 1.1 0.5 - 2.2 mmol/L [facility] Blood 02/17/2024 10:0 6 AM EDT 02/17/2024 10:06 AM EDT Hayder Graham MD POINT OF CARE TEST ORDERABLES Performing Organization Address City/State/[facility] Co de Phone Number [facility] [place] [place] [address] * Surgical Pathology Report (02/17/2024 10:01 AM EDT) Final Diagnosis [id number] ? Location: [facility]; [facility]; The signing pathologist has (i) examined the relevant preparation(s) for the specimen(s) and (ii) rendered or confirmed the diagnosis(es). . ?Surgical Pathology DIAGNOSIS Aortic valve leaflets, excision: Valve leaflets with myxoid degeneration, nodular fibrosis and dystrophic calcifications. Electronically signed by: ?Livier Montoya MD Verified: ??02/24/2024 13:49 ??Pathologist Performed at: ??-[facility] Dept. of Pathology, [place] [address] It Programmer Analyst: Job Brewer MD, FCAP, ??CLIA Certificate: [id number] SPECIMEN(S) SUBMITTED A - Aortic Valve Leaflets, [...] Sections Processing Blocks submitted for decalcification: A1. Cord Maker sections in 1 cassette labeled A1. ??ajw 02/24/2024 1:49 PM EDT [facility] AORTIC STRUCTURE / Unknown 02/17/2024 10:01 AM EDT 02/17/2024 10:01 AM EDT Hayder Graham MD PATHOLOGY/CYTOLOGY ORDERABLES Performing Organization Address City/[facility]/ZIP Co de Phone Number [facility] [place] [address] * Specimen to Pathology (02/17/2024 10:01 AM EDT) AP Specimen 02/17/2024 10:0 1 AM EDT 02/17/2024 10:01 AM EDT Narrative [facility] - 02/17/2024 10:01 AM EDT Specimen requisition ordered. ??Separate Pathology report to follow Hayder Graham MD PATHOLOGY/CYTOLOGY ORDERABLES Performing Organization Address [facility]/ZIP Co de Phone Number [facility] [place] [address] * (ABNORMAL) BLOOD GAS 2 ARTERIAL (02/17/2024 9:35 AM EDT) pH, Arterial 7.33(L) 7.35 - 7.45 [facility] PCO2, Arterial 35 35 - 45 mmHg [facility] PO2, Arterial 318(H) 85 - 104 mmHg [facility] Bicarbonate, Arterial 17.9(L) 20.0 - 26.0 mmol/L [facility] Base Excess, Arterial -8.0(L) -3.0 - 3.0 mmol/L [facility] Hgb Blood Gas 11.0(L) 13.7 - 16.5 g/dL [facility] Oxyhemoglobin, Arterial 98.8(H) 94.0 - 97.0 % [facility] Carboxyhemoglob in, Arterial 0.3 % [facility] Comment: Nonsmokers: 0.5-1.5% COHB Smokers: Variable, but usually less than 10% Toxic: 20-30% COHB Lethal: Greater than 60% COHB Methemoglobin, Arterial 0.3 <=1.5 % [facility] Na Whole Blood 131(L) 135 - 145 mmol/L [facility] K Whole Blood 5.8(H) 3.5 - 5.0 mmol/L [facility] Comment: Please note: Patients with WBC >100,000 may have falsely elevated Potassium levels. Contact the Clinical Chemistry Laboratory if there are any questions. ICa Whole Blood 0.98(L) 1.15 - 1.33 mmol/L [facility] Comment: Note: ??Total bilirubin higher than 20 mg/dL may lead to falsely low ionized calcium. CL Whole Blood 101 98 - 107 mmol/L [facility] Gluc Whole Bld 122 65 - 199 mg/dL [facility] Comment:Diabetes: >=200 mg/d L plus symptoms. Lactate WB 0.8 0.5 - 2.2 mmol/L [facility] Blood 02/17/2024 9:35 AM EDT 02/17/2024 9:35 AM EDT Hayder Graham MD POINT OF CARE TEST ORDERABLES [facility] [place] [address] * (ABNORMAL) BLOOD GAS 2 VENOUS (02/17/2024 9:34 AM EDT) pH, Venous 7.22(Criti marquez) 7.32 - 7.42 [facility] Comment:Noted by instrumentation designer. PCO2, Venous 43 41 - 51 mmHg [facility] Comment:Noted by instrumentation designer. PO2, Venous 57(H) 25 - 40 mmHg [facility] Comment:Noted by instrumentation designer. Bicarbonate, Venous 17.1 mmol/L [facility] Comment:Noted by instrumentation designer. Base Excess, Venous -10.6 mmol/L [facility] Comment:Noted by instrumentation designer. Hgb Blood Gas 11.2(L) 13.7 - 16.5 g/dL [facility] Comment:Noted by instrumentation designer. Oxyhemoglobin, Venous 86.5 % [facility] Comment:Noted by instrumentation designer. Carboxyhemoglob in, Venous 0.3 % [facility] Comment: Noted by instrumentation designer. Nonsmokers: 0.5-1.5% COHB Smokers: Variable, but usually less than 10% Toxic: 20-30% COHB Lethal: Greater than 60% COHB Methemoglobin, Venous 0.0 <=1.5 % [facility] Comment:Noted by instrumentation designer. Na Whole Blood 156(H) 135 - 145 mmol/L [facility] Comment:Noted by instrumentation designer. K Whole Blood 5.5(H) 3.5 - 5.0 mmol/L [facility] Comment: Noted by instrumentation designer. Please note: Patients with WBC >100,000 may have falsely elevated Potassium levels. Contact the Clinical Chemistry Laboratory if there are any questions. ICa Whole Blood 1.03(L) 1.15 - 1.33 mmol/L [facility] Comment: Noted by instrumentation designer. Note: ??Total bilirubin higher than 20 mg/dL may lead to falsely low ionized calcium. CL Whole Blood 100 98 - 107 mmol/L [facility] Comment:Noted by instrumentation designer. Gluc Whole Bld 132 65 - 199 mg/dL [facility] Comment: Noted by instrumentation designer. Diabetes: >=200 mg/dL plus symptoms Lactate WB 1.0 0.5 - 2.2 mmol/L [facility] Comment:Noted by instrumentation designer. Blood Gas Source Venous [facility] Blood 02/17/2024 9:34 AM EDT 02/17/2024 9:34 AM EDT Hayder Graham MD POINT OF CARE TEST ORDERABLES [facility] [place] [address] * (ABNORMAL) BLOOD GAS 2 ARTERIAL (02/17/2024 8:07 AM EDT) pH, Arterial 7.43 7.35 - 7.45 [facility] PCO2, Arterial 34(L) 35 - 45 mmHg [facility] PO2, Arterial 581(H) 85 - 104 mmHg [facility] Bicarbonate, Arterial 21.7 20.0 - 26.0 mmol/L [facility] Base Excess, Arterial -2.6 -3.0 - 3.0 mmol/L [facility] Hgb Blood Gas 14.5 13.7 - 16.5 g/dL [facility] Oxyhemoglobin, Arterial 99.0(H) 94.0 - 97.0 % [facility] Carboxyhemoglob in, Arterial 0.4 % [facility] Comment: Nonsmokers: 0.5-1.5% COHB Smokers: Variable, but usually less than 10% Toxic: 20-30% COHB Lethal: Greater than 60% COHB Methemoglobin, Arterial 0.3 <=1.5 % [facility] Na Whole Blood 139 135 - 145 mmol/L [facility] K Whole Blood 4.0 3.5 - 5.0 mmol/L [facility] Comment: Please note: Patients with WBC >100,000 may have falsely elevated Potassium levels. Contact the Clinical Chemistry Laboratory if there are any questions. ICa Whole Blood 1.09(L) 1.15 - 1.33 mmol/L [facility] Comment: Note: ??Total bilirubin higher than 20 mg/dL may lead to falsely low ionized calcium. CL Whole Blood 106 98 - 107 mmol/L [facility] Gluc Whole Bld 100 65 - 199 mg/dL [facility] Comment:Diabetes: >=200 mg/d L plus symptoms. Lactate WB 1.3 0.5 - 2.2 mmol/L [facility] Blood 02/17/2024 8:07 AM EDT 02/17/2024 8:07 AM EDT Hayder Graham MD POINT OF CARE TEST ORDERABLES Performing Organization Address [facility] Co de Phone Number [facility] [place] [address] * POCT Glucose (02/17/2024 6:38 AM EDT) Glucose, POC 98 65 - 199 mg/dL [facility] Comment: Supplemental ranges: <140 mg/dL before meals <180 mg/dL all other times of the day Blood 02/17/2024 6:38 AM EDT 02/17/2024 6:38 AM EDT Hayder Graham MD POINT OF CARE TEST ORDERABLES Performing Organization Address [facility] Co de Phone Number [facility] [place] [address] * Transesophageal Echo/OR (02/17/2024 6:33 AM EDT) [...] [facility] [...] dose on Sat02/17/24 at 1400, Until Discontinued, [place] teeth and / or gums. Scan the CHG vial in the [employer] Q-Care Oral Care Kit from floor stock. Ventilator-associated pneumonia prophylaxis For use in ICU/Critical care locations ONLY. Obtain kit from Floor Stock location. Scan CHG vial in the [employer] Q-Care Oral Care Kit, Routine Given [...] at 50% of previous rate. Call warehouse manager if goal not achieved at maximum [...] PHENYLephrine and/or vasopressin ineffective. Call pager # [phone] if initiated. Titrate to keep systolic blood [...] L/min/M2. Maximum volume 2 L. Call warehouse manager for additional fluid orders: pager #[phone]. Rate/Dose Verify 02/18/2024 8:00 AM EDT 1 mL/hr 1 mL/hr Rate/Dose Verify 02/18/2024 6:00 AM EDT 1 mL/hr 1 mL/hr Rate/Dose Verify 02/18/2024 4:00 AM EDT 1 mL/hr 1 mL/hr sodium chloride 0.9% infusion 10-30 mL/hr, Intravenous, DAILY PRN, Starting on Sat02/17/24 at 1307, Until Sat02/18/24 at 0835, Side port TKO rate, per [facility] nursing protocol. Rate/Dose Verify 02/17/2024 8:00 PM EDT 30 mL/hr 30 mL/hr Rate/Dose Verify 02/17/2024 6:00 PM EDT 30 mL/hr 30 mL/h r Rate/Dose Verify 02/17/2024 5:00 PM EDT 30 mL/hr 30 mL/h r sodium chloride 0.9% infusion 10-30 mL/hr, Intravenous, DAILY PRN, Starting on Sat02/17/24 at 1307, Until Sat02/18/24 at 0835, Side port TKO rate, per [facility] nrusing protocol. Rate/Dose Verify 02/18/2024 8:00 [...] Routine documented in this encounter Care Teams Student Activities Director Relationship Specialty Start Date End Date Aparna Jordan APRN PCP - General Family Medicine 10/21/23 05/26/24 documented as of this encounter
--- OUTSIDE RECORDS SUMMARY | 2024-06-15 08:27 | XMS_ITS | Clinical Summary ---
Author Organization [facility] Address [address] [place] [address] Care Team Providers Care Finishing Tunnel Operator Name Role Phone Vanessa Christian NP Primary Care Provider [phone] Social History Tobacco Use Types Packs/Day Years [...] COVID-19 Vaccine (2022-24 season) 2023 Care Teams Finishing Tunnel Operator Relationship Specialty Start Date End Date Vanessa Christian NP [address] [place] [phone] PCP - General Family Medicine - Primary Care 10/07/23
--- OUTSIDE RECORDS SUMMARY | 2024-06-15 08:27 | XMS_ITS | Encounter Summary ---
Author Organization [facility] Address [facility] [place] [address] Care Team Providers Care Concrete Inspector Name Role Phone Vanessa Christian REHAB PHYSICIAN Primary Care Provider [phone] Encounter Details Date Type Department Care Team (Late st Contact Info) Description 03/12/2024 2:40 PM EDT Office Visit [place] [phone] Zak Farmer MD [facility] [place] [address] Coronary artery disease, unspecified vessel or lesion type, unspecified whether angina present, unspecified whether [place] or transplanted heart Social History Tobacco Use Types Packs/Day Years Used Date Smoking Tobacco: Former Cigarettes Smokeless Tobacco: Never Comments:Quit 15 + years ago Alcohol Use Standard Drinks/Week Comments Yes 0 (1 standard drink = 0.6 oz pur e alcohol) rare [facility] Utilities Answer Date Recorded In the past 12 months has e [employer], gas, oil, or water [employer] threatened to shut off services in your [...] 2:40 PM EDT To: MD Vanessa Coles, REHAB PHYSICIAN Re; Karlos Santa ( 1960) We had [...] office. Best personal regards, Zak Farmer MD [phone] documented in this encounter Plan of Treatment Upcoming Encounters Date Type Department Care Team (Late st Contact Info) Description 11/30/2024 3:00 PM EST Office Visit Cardiology at [address] [place] [address] Neftali Ernandez MD [facility] [place] [address] documented as of this encounter Procedures Procedure Name Priority Date/Time Associated Diagnosis Comments EKG 12-LEAD Routine 03/12/2024 2:35 PM EDT Coronary artery disease, unspecified vessel or lesion type, unspecified whether angina present, unspecified whether [place] or transplanted heart documented in this encounter Results * EKG 12 Lead (03/12/2024 2:35 PM EDT) Ventricular rate 59 BPM MUSE SYSTEM Atrial Rate 59 BPM MUSE SYSTEM P-R Interval 190 ms MUSE SYSTEM QRS Duration 92 ms MUSE SYSTEM Q-T Interval 406 ms MUSE SYSTEM QTC Calculated (Bezet) 401 ms MUSE SYSTEM Calculated P [place] -12 degrees MUSE SYSTEM Calculated R [place] 24 degrees MUSE SYSTEM Calculated T [place] 74 degrees MUSE SYSTEM INTERPRETATION Sinus bradycardia T wave abnormality, consider anterior ischemia Abnormal ECG When compared with ECG of 17-FEB-2024 13:24, [place] interval has decreased T wave inversion now evident in Anterior leads Confirmed by Paul Guzman ([id number]) on 03/15/2024 8:36:23 AM MUSE SYSTEM 03/12/2024 2:35 PM EDT 03/15/2024 8:36 AM EDT Zak Farmer MD ECG ORDERABLES MUSE SYSTEM documented in this encounter Visit Diagnoses Diagnosis Coronary artery disease, unspecified vessel or lesion type, unspecified whether angina present, unspecified whether [place] or transplanted heart documented in this encounter Care Teams Concrete Inspector Relationship Specialty Start Date End Date Vanessa Christian APRN PCP - General Family Medicine 10/21/23 05/26/24 documented as of this encounter
--- OUTSIDE RECORDS SUMMARY | 2024-06-15 08:27 | XMS_ITS | Encounter Summary ---
Author Organization [facility] Address [facility] [place] [id number] Care Team Providers Care Outdoor Emergency Care Technician Name Role Phone Vanessa Christian MAURI Primary Care Provider [phone] Encounter Details Date Type Department Care Team (Latest Contact Info) Description 03/12/2024 1:30 PM EDT - 03/12/2024 11:59 PM EDT Hospital Encounter XRay at [address] [place] [phone] Coronary artery disease, unspecified vessel or lesion type, unspecified whether angina present, unspecified whether [place] or transplanted heart Discharge Disposition: Home Social History Tobacco Use Types Packs/Day Years Used Date Smoking Tobacco: Former Cigarettes Smokeless Tobacco: Never Comments:Quit 15 + years ago Alcohol Use Standard Drinks/Week Comments Yes 0 (1 standard drink = 0.6 oz pur e alcohol) rare [facility] Utilities Answer Date Recorded In the past 12 months has e [employer], gas, oil, or water [place] threatened to shut off services in your [...] PM EST Office Visit Cardiology at [address] [place] [address] Neftali Ernandez MD [facility] [place] [address] documented as of this encounter Procedures Procedure Name Priority Date/Time Associated Diagnosis Comments XR CHEST PA AND LATERAL Routine 03/12/2024 1:42 PM EDT Coronary artery disease, unspecified vessel or lesion type, unspecified whether angina present, unspecified whether [place] or transplanted heart documented in this encounter Results * XR Chest PA & Lateral (Generic) (03/12/2024 1:42 PM EDT) WORKSTATION ID [id number] RAD Anatomical Region Laterality Modality Chest N/A [...] who have questions please contact the health patient care coordinator that requested your imaging first. ? Electronically signed by: Augie Sanchez MD, [facility] ([phone]), at 03/13/2024 8:28 AM Narrative 03/13/2024 8:28 AM EDT EXAMINATION: XR CHEST PA AND LATERAL (GENERIC) CLINICAL HISTORY: s/p cabg eval effusions I25.10, Atherosclerotic heart disease of [place] coronary artery without angina pectoris TECHNIQUE: PA [...] eval effusions I25.10, Atherosclerotic heart disease of [place] coronary artery withoutangina pectoris TECHNIQUE: PA and [...] patients who have questions please contactthe health patient care coordinator that requested your imaging first. Electronically signed by: Augie Sanchez MD, [facility]([phone]), at 03/13/2024 8:28 AM Zak Farmer MD IMG DX ORDERABLES documented in this encounter Visit Diagnoses Diagnosis Coronary artery disease, unspecified vessel or lesion type, unspecified whether angina present, unspecified whether [place] or transplanted heart documented in this encounter Care Teams Outdoor Emergency Care Technician Relationship Specialty Start Date End Date Vanessa Christian, MAURI PCP - General Family Medicine 10/21/23 05/26/24 documented as of this encounter
--- OUTSIDE RECORDS SUMMARY | 2024-06-15 08:27 | XMS_ITS | Encounter Summary ---
Author Organization [facility] Address [place] [place] [address] Care Team Providers Care Agency Legal Counsel Name Role Phone Vanessa Christian MAURI Primary Care Provider [phone] Encounter Details Date Type Department Care Team [...] PM EST Office Visit Cardiology at [address] [phone] Neftali Ernandez MD [facility] [place] [address] documented as of this encounter Visit Diagnoses Not on filedocumented in this encounter Care Teams Agency Legal Counsel Relationship Specialty Start Date End Date Vanessa Christian APRN PCP - General Family Medicine 10/21/23 05/26/24 documented as of this encounter
--- OUTSIDE RECORDS SUMMARY | 2024-06-15 08:27 | XMS_ITS | Encounter Summary ---
Author Organization Replaced By [facility] Address [facility] [place] [address] Care Team Providers Care Personnel Coordinator Name Role Phone Vanessa Christian MAURI Primary Care Provider [phone] Encounter Details Date Type Department Care Team [...] PM EST Office Visit Cardiology at [address] [address] Neftali Ernandez MD [facility] [place] [address] documented as of this encounter Visit Diagnoses Not on filedocumented in this encounter Care Teams Personnel Coordinator Relationship Specialty Start Date End Date Vanessa Christian APRN [address] [place] [address] PCP - General Family Medicine 05/27/24 documented as of this encounter
--- OUTSIDE RECORDS SUMMARY | 2024-06-15 08:27 | XMS_ITS | Encounter Summary ---
Author Organization [facility] Address [address] [place] [address] Care Team Providers Care Real Estate Legal Secretary Name Role Phone Vanessa Christian Lane MONCADA Primary Care Provider [phone] Encounter Details Date Type Department Care Team (Late st Contact Info) Description 10/24/2023 Lab Requisition [facility] Pathology & Laboratory Medicine - [address] [address] Oscar Nichole MD [address] [place] [phone] Factitial dermatitis Social History Tobacco Use Types [...] LABORATORY SERVICES Final Diagnosis A. SKIN OF ORTHODOXY, LEFT, SHAVE BIOPSY: - Seborrheic keratosis, pigmented. 10/28/2023 11:24 EST [facility] Attestation By the signature below, the attending physician certifies that they have 1) personally conducted a gross and/or microscopic examination of the described specimen(s), and/or personally interpreted the results of laboratory testing of the described specimen(s), and 2) personally rendered or confirmed the above diagnosis. 10/28/2023 11:24 [facility]ORATORY [facility] at [address] Microscopic Description The stratum corneum is thickened by compact and basketweave orthokeratosis with formation of horn pseudocysts. The epidermis is acanthotic with formation of broad and anastomosing trabeculae. The trabeculae are composed of basaloid keratinocytes with round uniform nuclei. The keratinocytes have a variable amount of melanin pigment. 10/28/2023 11:24 [facility] Clinical History Pigmented 2 cm patch; clinical diagnosis code: L98.1 10/28/2023 11:24 [facility] Gross Description A. Received in formalin labelled with proper patient identification (initials P, A) and left synagogue is a shave biopsy of an irregular [...] A3. Nora Anderson 10/25/2023 8:47 10/28/2023 11:24 [facility] Performing Lab [facility] 10/28/2023 11:24 [facility] Scanned Images 10/28/2023 11:24 [facility] Tissue SPECIMEN FROM SKIN / Unknown 10/24/2023 14:30 EST 10/24/2023 22:04 EST Oscar Nichole MD PATHOLOGY ORDERABLES [facility] [address] [place] [address] documented in this encounter Visit Diagnoses Diagnosis Factitial dermatitis Dermatitis factitia (artefacta) documented in this encounter Care Teams Real Estate Legal Secretary Relationship Specialty Start Date End Date Vanessa Christian NP [address] [place] [address] PCP - General Family Medicine - Primary Care 10/07/23 documented as of this encounter
--- OUTSIDE RECORDS SUMMARY | 2024-06-15 08:27 | XMS_ITS | Clinical Summary ---
Author Organization [facility] Address [facility] [place] [address] Care Team Providers Care Animation Artist Name Role Phone Vanessa Christian Lane DOTSON Primary Care Provider [phone] Allergies No known active allergies Medications Medication [...] the meantime will refer to SHT at [facility] for further evaluation. Logistics and preliminary review [...] AM EDT Office Visit Cardiology at [address] [place] [address] Neftali Ernandez MD ASCVD (arteriosclerotic cardiovascular disease); Nonrheumatic aortic valve stenosis 05/27/2024 Travel 05/20/2024 Travel from Last 3 Months Social History Tobacco Use Types Packs/Day Years Used Date Smoking Tobacco: Former Cigarettes Smokeless Tobacco: Never Comments:Quit 15 + years ago Alcohol Use Standard Drinks/Week Comments Yes 0 (1 standard drink = 0.6 oz pur e alcohol) rare [facility] Utilities Answer Date Recorded In the [...] PM EST Office Visit Cardiology at [address] [place] [address] Neftali Ernandez MD [facility] [place] [address] Health Maintenance Due Date Last Done Comments CT Colonography 1959 Colonoscopy 1959 Colorectal Cancer Screening 1959 FIT DNA 1959 FIT 1959 Sigmoidoscopy (10 year) with FIT yearly 1959 Sigmoidoscopy 1959 HIV screen 1977 Hepatitis C Screening 1977 Tdap adult 1978 Tetanus vaccine 1978 Zoster vaccine (1 of 2) 2009 Advance Directive 2014 Covid-19 Vaccine ( season) 2024 Influenza (Flu) vaccine (1 o f 1 - Influenza standard series) 06/07/2024 Medical Devices Implanted Type Area Assisted Living Associate Device Identifier Shelf Expiration Date Model / Serial / Lot Cable,Cut,Edg ,Blnt,Ss,3tpr ([id number]) - [id number] Implanted:Qty : 1 on 02/17/2024 by Zak Farmer MD at [facility] IMPLANTS Midline: Chest [employer] - [id number] 09/02/2028 [id number] / / [id number] Valve Coronary Aortic 23mm Tissue Trnscath Biopros Inspiris ([id number]) (Autoreq) - [id number] Implanted:Qty : 1 on 02/17/2024 by Zak Farmer MD at [facility] IMPLANTS Heart [employer] - TSAI LI 09/15/2027 [id number] 23MM / [id number] / Procedures Procedure Name Priority Date/Time Associated Diagnosis Comments EKG 12-LEAD Routine 05/27/2024 11:24 AM EDT from Last 3 Months Results * EKG 12 Lead (05/27/2024 11:24 AM EDT) Ventricular rate 54 BPM MUSE SYSTEM Atrial Rate 54 BPM MUSE SYSTEM P-R Interval 216 ms MUSE SYSTEM QRS Duration 92 ms MUSE SYSTEM Q-T Interval 388 ms MUSE SYSTEM QTC Calculated (Bezet) 367 ms MUSE SYSTEM Calculated P [place] 12 degrees MUSE SYSTEM Calculated R [place] 27 degrees MUSE SYSTEM Calculated T [place] 62 degrees MUSE SYSTEM INTERPRETATION Sinus bradycardia with 1st degree A-V block Otherwise normal ECG When compared with ECG of 12-MAR-2024 14:35, T wave inversion no longer evident in Anterior leads Confirmed by MD Ernandez Daniel ([id number]) on 06/01/2024 8:36:17 AM MUSE SYSTEM 05/27/2024 11:2 4 AM EDT 06/01/2024 8:36 AM EDT Unknown ECG ORDERABLES MUSE SYSTEM from Last 3 Months Advance Directives * [...] Status decision made by: Patient Care Teams Animation Artist Relationship Specialty Start Date End Date Vanessa Christian, CLINICAL RESOURCE NURSE [address] [place] [address] PCP - General Family Medicine 05/27/24
--- OUTSIDE RECORDS SUMMARY | 2024-06-15 08:27 | XMS_ITS | Encounter Summary ---
Author Organization [facility] Address [facility] [place] [address] Care Team Providers Care Truck Body Repairer Name Role Phone Vanessa Christian MAURI Primary Care Provider [phone] Encounter Details Date Type Department Care Team [...] PM EST Office Visit Cardiology at [address] [phone] Neftali Ernandez MD [facility] [address] documented as of this encounter Visit Diagnoses Not on filedocumented in this encounter Care Teams Truck Body Repairer Relationship Specialty Start Date End Date Vanessa Christian APRN PCP - General Family Medicine 10/21/23 05/26/24 documented as of this encounter
--- OUTSIDE RECORDS SUMMARY | 2024-06-15 08:27 | XMS_ITS | Encounter Summary ---
Author Organization [facility] Address [facility] [place] [address] Care Team Providers Care Documentation Billing Clerk Name Role Phone Vanessa Christian Lane DOTSON Primary Care Provider [phone] Reason for Visit * Reason Comments Coronary Artery Disease Aortic Stenosis Encounter Details Date Type Department Care Team (Latest Contact Info) Description 05/27/2024 11:00 AM EDT Office Visit Cardiology at [address] [place] [phone] Neftali Ernandez MD [facility] [place] [address] ASCVD (arteriosclerotic cardiovascular disease); Nonrheumatic aortic valve stenosis Social History Tobacco Use Types Packs/Day Years Used Date Smoking Tobacco: Former Cigarettes Smokeless Tobacco: Never Comments:Quit 15 + years ago Alcohol Use Standard Drinks/Week Comments Yes 0 (1 standard drink = 0.6 oz pur e alcohol) rare [facility] Utilities Answer Date Recorded In the past 12 months has e [place], gas, oil, or water [employer] threatened to shut off services in your [...] PM EST Office Visit Cardiology at [address] [address] Neftali Ernandez MD [facility] [place] [address] documented as of this encounter Visit Diagnoses Diagnosis ASCVD (arteriosclerotic cardiovascular disease) Unspecified cardiovascular disease Nonrheumatic aortic valve stenosis Aortic valve disorders documented in this encounter Care Teams Documentation Billing Clerk Relationship Specialty Start Date End Date Vanessa Christian APRN [address] [place] [address] PCP - General Family Medicine 05/27/24 documented as of this encounter
--- OUTSIDE RECORDS SUMMARY | 2024-06-15 08:27 | XMS_ITS | Encounter Summary ---
Author Organization [facility] Address [facility] [place] [address] Care Team Providers Care Tattoo And Body Artist Name Role Phone Gino Vanessa Lane DOTSON Primary Care Provider Encounter Details Date Type Department Care Team (Late st Contact Info) Description 02/24/2024 Orders Only Cardiac Surgery [facility] [place] [phone] Trudi Lester APRN [facility] [place] [address] Social History Tobacco Use Types Packs/Day Years Used Date Smoking Tobacco: Former Cigarettes Smokeless Tobacco: Never Comments:Quit 15 + years ago Alcohol Use Standard Drinks/Week Comments Yes 0 (1 standard drink = 0.6 oz pur e alcohol) rare [facility] Utilities Answer Date Recorded In the past 12 months has e [employer], gas, oil, or water [employer] threatened to shut off services in your [...] PM EST Office Visit Cardiology at [address] [place] [address] Neftali Ernandez MD [facility] [place] [address] documented as of this encounter Visit Diagnoses Not on filedocumented in this encounter Care Teams Tattoo And Body Artist Relationship Specialty Start Date End Date Vanessa Christian APRN PCP - General Family Medicine 10/21/23 05/26/24 documented as of this encounter
--- OUTSIDE RECORDS SUMMARY | 2024-06-15 08:28 | XMS_ITS | Encounter Summary ---
Author Organization [facility] Address [facility] [place] [address] Care Team Providers Care Registered Nurse Practitioner Name Role Phone Vanessa Christian APRN Primary Care Provider [phone] Encounter Details Date Type Department Care Team [...] 3:00 PM EST Office Visit Cardiology at [address] [place] [address] Neftali Ernandez MD [facility] [place] [address] documented as of this encounter Visit Diagnoses Not on filedocumented in this encounter Care Teams Registered Nurse Practitioner Relationship Specialty Start Date End Date Vanessa Christian APRN PCP - General Family Medicine 10/21/23 05/26/24 documented as of this encounter
--- OUTSIDE RECORDS SUMMARY | 2024-06-15 08:28 | XMS_ITS | Encounter Summary ---
Author Organization [facility] [place] [address] Care Team Providers Care Merit System Director Name Role Phone Vanessa Christian APRN Primary Care Provider [phone] Encounter Details Date Type Department Care Team (Late st Contact Info) Description 10/21/2023 Abstract Cardiology at [address] [place] [phone] Adam Mayes RN Social History Tobacco Use [...] Office Visit Cardiology at [address] [place] [address] Neftali Ernandez MD [facility] [place] [address] documented as of this encounter Visit Diagnoses Not on filedocumented in this encounter Care Teams Merit System Director Relationship Specialty Start Date End Date Vanessa Christian APRN PCP - General Family Medicine 10/21/23 05/26/24 documented as of this encounter
--- OUTSIDE RECORDS SUMMARY | 2024-06-15 08:28 | XMS_ITS | Encounter Summary ---
Author Organization [facility] [place] [address] Care Team Providers Care Clinical Appeals Reviewer Name Role Phone Vanessa Christian MAURI Primary Care Provider [phone] Reason for Visit * Auth/Cert (Routine) Specialty [...] W RHC (WRVU 5.9) Rima Dickinson MD [facility] [place] [address] [facility] Referral ID Status Reason Start Date Expiration Date Visits Re quested Visits Authorized [id number] 1 1 Encounter Details Date Type Department Care Team (Late st Contact Info) Description 02/03/2024 10:00 AM EDT - 02/03/2024 11:00 AM [place] [address] Saira Lua MD [facility] [place] [address] CARDIAC CATHETERIZATION Social History Tobacco Use Types [...] lbs Follow-up Visits Follow up with your net maker in 2-4 weeks Access Site 'Black and Blue' and tenderness is expected during the first week Call if you noted a mass (lump) greater than the size of a ellis Call Office with any Questions and if you have any of the following Clarence Lane M.D Interventional Creative Designer Sap Analyst #: [phone] * Attachments The following attachments cannot be [...] Lane MD - 02/03/2024 11:48 AM EDT [facility] Interventional Cardiology Adult Pre-Procedure H&P Update: Cardiac Catheterization Karlos Anthony [id number] Chief Complaint: Aortic stenosis HPI: Mr. [...] is inthe chart Clarence Lane MD Interventional Creative Designer 02/03/24 11:48 AM documented in this encounter Miscellaneous Notes * Brief Op Note - Clarence Lane MD - 02/03/2024 12:51 PM EDT Preliminary Cardiac Catheterization Procedure Note: Patient Name: Karlos Anthony : [id number] MR#: [id number] Case Date: 02/03/2024 Sap Analyst: Surgeon(s) and Role: * Saira Lua MD [...] PM EST Office Visit Cardiology at [address] [address] Neftali Ernandez MD [facility] [place] [address] Scheduled Orders Name Type Priority Associated Diagnoses [...] Modality Other Narrative 02/12/2024 3:47 PM EDT ?[facility] ? Cardiac Catheterization/Intervention Report ? Patient Name: Patenaude, Karlos ? Procedure Date: 02/03/2024 ? A #: [id number] ? Primary Physician: Saira Lua ? Case #: [id number] ? File Name: [id number] ? Catheterization Order Number: [id number] ? [facility] ? Final Report [place], [place] ? Patient Name: ? Karlos Patenaude ? ID#: ?[id number] ? : ?1960 ? Procedure Date: ? [...] Procedure Note Saira Lua MD - 02/12/2024 [facility] Cardiac Catheterization/Intervention Report Patient Name: Karlos Anthony Procedure Date: 02/03/2024 A #: [id number] Primary Physician: Saira Lua Case #: [id number] File Name: [id number] Catheterization Order Number: [id number] [facility] FinalReport [place], [place] Patient Name: Karlos Anthony ID#:[id number] :1960 Procedure Date: February 03, 2024 Case [...] was designated as ASA Class III. The [facility] clinical frailty scale is 3: Managing Well. [...] was present for the entire procedure. Dr. Siara Lua M.D. was present during the moderate [...] (Bezet) 372 ms MUSE SYSTEM Calculated P [place] 59 degrees MUSE SYSTEM Calculated R [place] 34 degrees MUSE SYSTEM Calculated T [place] 63 degrees MUSE SYSTEM INTERPRETATION Sinus bradycardia [...] MD) documented in this encounter Care Teams Clinical Appeals Reviewer Relationship Specialty Start Date End Date Vanessa Christian APRN PCP - General Family Medicine 10/21/23 05/26/24 documented as of this encounter
--- OUTSIDE RECORDS SUMMARY | 2024-06-15 08:28 | XMS_ITS | Encounter Summary ---
[place] [address] Care Team Providers Care Scientist Propagator Name Role Phone Victor M Lafleur MD Primary Care Provider [phone] Reason for Visit * Reason Onset Date Comments Referral 09/20/2023 Encounter Details Date Type Department Care Team (Late st Contact Info) Description 09/20/2023 Telephone Cardiology at [address] [address] Karen Billy, plastic cnc machine operator Social History Tobacco Use Types Packs/Day [...] PM EST Office Visit Cardiology at [address] [place] [address] Neftali Ernandez MD [facility] [place] [address] documented as of this encounter Visit Diagnoses Not on filedocumented in this encounter Care Teams Scientist Propagator Relationship Specialty Start Date End Date Victor M Lafleur MD PCP - General 10/02/13 10/20/23 documented as of this encounter
--- OUTSIDE RECORDS SUMMARY | 2024-06-15 08:28 | XMS_ITS | Encounter Summary ---
Author Organization [facility] [place] [address] Care Team Providers Care Conveyor Belt Repairer Name Role Phone Vanessa Christian MAURI Primary Care Provider [phone] Encounter Details Date Type Department Care Team (Latest Contact Info) Description 01/09/2024 3:00 PM EDT Laboratory [place] [phone] Nonrheumatic aortic valve stenosis Social History Tobacco Use Types Packs/Day Years Used Date Smoking Tobacco: Former Cigarettes Smokeless Tobacco: Never Comments:Quit 15 + years ago Alcohol Use Standard Drinks/Week Comments Yes 0 (1 standard drink = 0.6 oz pur e alcohol) rare [facility] Inpatient Questions Answer Date Recorded Prevent Contact [...] PM EST Office Visit Cardiology at [address] [phone] Neftali Ernandez MD [facility] [place] [address] documented as of this encounter Procedures Procedure Name Priority Date/Time Associated Diagnosis Comments ABORH RECHECK STATUS Routine 01/09/2024 2:58 PM EDT HEMOGRAM Routine 01/09/2024 2:58 PM EDT Nonrheumatic aortic valve stenosis DIFFERENTIAL, AUTOMATED Routine 01/09/2024 2:58 PM EDT Nonrheumatic aortic valve stenosis TYPE AND SCREEN, SDP (FUTURE SURGERY, [facility] SAME DAY PROGRAM [...] LAB CECILIO ALEMAN [facility] [place] [address] * Differential, Automated (01/09/2024 2:58 PM EDT) Neutrophil % 70.5 % [facility] Neutrophil Absolute 4.34 1.70 - 6.10 x10(3)/[facility] LABORATORY Lymph % 18.9 % [facility] LABOR[facility] Lymphocytes Abs 1.2 0.9 - 3.2 x10(3)/[facility] LABORATORY Monocyte % 8.0 % [facility] LABOR[facility]ORY Monocyte Abs 0.5 0.3 - 0.9 x10(3)/[facility] LABORATORY Eos % 1.6 % [facility] LABOR[facility]ORY Eosinophils Abs 0.1 0.0 - 0.4 x10(3)/[facility] LABORATORY Basophil % 0.5 % [facility] LABOR[facility]ORY Baso Absolute 0.0 0.0 - 0.1 x10(3)/[facility] LABORATORY Immature Gran % 0.50 % [facility] Comment: Immature granulocytes(IG's)percentage and absolute count will include metamyelocytes, myelocytes, and promyelocytes. Blood smears from CBCs yielding IG's will be scanned manually for concordance. If this scan disagrees with the automated IG or if promyelocytes are noted, a manual differential will be performed. Immature Gran Absolute 0.03 0.00 - 0.04 x10(3)/[facility] LABORATORY Blood 01/09/2024 2:58 PM EDT 01/09/2024 3:03 PM EDT Narrative Resulting Agency Comment Spec In Lab Zak Farmer MD HEMATOLOGY ORDERABL ES [facility] [place] [address] * Hemogram (01/09/2024 2:58 PM EDT) White Blood Cell 6.2 4.0 - 9.5 x10(3)/[facility] LABORATORY Red Blood Cell 5.53 4.58 - 5.54 x10(6)/[facility] LABORATORY Hemoglobin 16.1 13.7 - [...] CENTER LABORATORY Platelet 187 145 - 357 x10(3)/[facility] LABORATORY RDW Standard Deviation 39.2 36.0 - 45.0 fL [facility] RDW coefficient of variation 12.6 11.4 - 13.8 % [facility] Mean Platelet Volume 9.5 7.6 - 12.9 fL [facility] NRBC% auto 0.0 % [facility] LAB[facility] NRBC Absolute 0.000 0.000 - 0.000 x10(3)/[facility] LABORATORY Blood 01/09/2024 2:58 PM EDT 01/09/2024 3:03 PM EDT Narrative Resulting Agency Comment Spec In Lab Zak Farmer MD HEMATOLOGY ORDERABL ES [facility] [place] [address] * Basic Metabolic Panel (non-fasting) (01/09/2024 2:58 [...] CHEMISTRY ORDERABLE S [facility] [place] [address] * Hepatic Function Panel (01/09/2024 2:58 PM [...] CHEMISTRY ORDERABLE S Performing Organization Address [facility] [address] [facility] Co de Phone Number [facility] [place] [address] * Prothrombin Time (01/09/2024 2:58 PM EDT) [...] HEMATOLOGY ORDERABL ES Performing Organization Address [facility] Co de Phone Number [facility] [place] [address] * Type and Screen Future Surgery, [facility] SAME DAY PROGRAM [...] BANK LAB ORDE RABLES Performing Organization Address City/[facility] [address]/ZIP [place] [address] documented in this encounter Visit Diagnoses Diagnosis Nonrheumatic aortic valve stenosis Aortic valve disorders documented in this encounter Care Teams Conveyor Belt Repairer Relationship Specialty Start Date End Date Vanessa Christian APRN PCP - General Family Medicine 10/21/23 05/26/24 documented as of this encounter
--- OUTSIDE RECORDS SUMMARY | 2024-06-15 08:28 | XMS_ITS | Encounter Summary ---
Author Organization [facility] [place] [address] Care Team Providers Care Power Manager Name Role Phone Vanessa Christian APRN Primary Care Provider [phone] Encounter Details Date Type Department Care Team [...] PM EST Office Visit Cardiology at [address] [place] [phone] Neftali Ernandez MD [facility] [place] [address] documented as of this encounter Visit Diagnoses Not on filedocumented in this encounter Care Teams Power Manager Relationship Specialty Start Date End Date Vanessa Christian APRN PCP - General Family Medicine 10/21/23 05/26/24 documented as of this encounter
--- OUTSIDE RECORDS SUMMARY | 2024-06-15 08:28 | XMS_ITS | Encounter Summary ---
Author Organization [facility] [place] [address] Care Team Providers Care Newspaper Carriers Supervisor Name Role Phone Vanessa Christian MAURI Primary Care Provider [phone] Encounter Details Date Type Department Care Team (Late st Contact Info) Description 01/10/2024 [place] [phone] Lawson Napoles PA [facility] [place] [address] Screening for cardiovascular condition; Aortic valve stenosis, [...] PM EST Office Visit Cardiology at [address] [place] [phone] Neftali Ernandez MD [facility] [place] [address] documented as of this encounter Visit Diagnoses Diagnosis Screening for cardiovascular condition Screening for other and unspecified cardiovascular conditions Aortic valve stenosis, etiology of cardiac valve disease unspecified documented in this encounter Care Teams Newspaper Carriers Supervisor Relationship Specialty Start Date End Date Vanessa Christian APRN PCP - General Family Medicine 10/21/23 05/26/24 documented as of this encounter
--- OUTSIDE RECORDS SUMMARY | 2024-06-15 08:28 | XMS_ITS | Encounter Summary ---
Author Organization [facility] Address [facility] [place] [address] Care Team Providers Care Share Holder Name Role Phone Vanessa Christian AUTOMATIC OUTSOLE CUTTER Primary Care Provider [phone] Reason for Referral * Diagnostic Test (Routine) - Closed Specialty Diagnoses / Procedures Referred By Contac t Referred To Contact Radiology Diagnoses Nonrheumatic aortic valve stenosis Procedures CT Chest wo Contrast (Generic) Louisa Reid PA [facility] [place] [address] [facility] [place] [address] Referral ID Status Reason Start Date Expiration Date V isits Requested Visits Authorized [id number] Closed Specialty Service Requested 01/10/2024 07/11/2025 1 1 Encounter Details Date Type Department Care Team (Late st Contact Info) Description 01/09/2024 Orders [place] [address] Zak Farmer MD [facility] [place] [address] Nonrheumatic aortic valve stenosis Social History Tobacco [...] PM EST Office Visit Cardiology at [address] [place] [address] Neftali Ernandez MD [facility] [place] [place] [address] documented as of this encounter Results * CT Chest wo Contrast (Generic) (02/03/2024 7:44 AM EDT) WORKSTATION ID [id number] RAD Anatomical Region Laterality Modality Chest Computed [...] have questions please contact the health healthcare specialist that requested your imaging first. ? Electronically signed by: Rogerio Wright MD, [facility] ([phone]), at 02/03/2024 10:00 AM Narrative 02/03/2024 10:00 [...] who have questions please contactthe health healthcare specialist that requested your imaging first. Electronically signed by: Rogerio Wright MD, [facility]([phone]), at 02/03/2024 10:00 AM Zak Farmer MD IMG CT ORDERABLES documented in this encounter Visit Diagnoses Diagnosis Nonrheumatic aortic valve stenosis Aortic valve disorders Nonrheumatic aortic valve stenosis Aortic valve disorders documented in this encounter Care Teams Share Holder Relationship Specialty Start Date End Date Vanessa Christian APRN PCP - General Family Medicine 10/21/23 05/26/24 documented as of this encounter
--- OUTSIDE RECORDS SUMMARY | 2024-06-15 08:28 | XMS_ITS | Encounter Summary ---
Author Organization [facility] [place] [address] Care Team Providers Care Engineering And Operations Director Name Role Phone Vanessa Christian MAURI Primary Care Provider Reason for [...] ARTERIAL GRAFT (WRVU 7.93) Zak Farmer MD [facility] [place] [address] [facility] Referral ID Status Reason Start Date Expiration Date Visits Re quested Visits Authorized [id number] 1 1 Encounter Details Date Type Department Care Team (Late st Contact Info) Description 02/17/2024 7:35 AM EDT Anesthesia Event Main Operating Room [facility] [place] [phone] Roman York MD [facility] [place] [address] Anesthesia Record Procedure Summary Procedure Name Responsible [...] by Sadiq Woo RN PIV 02/17/24; 0715; [id number] catheter system; 18 gauge; cephalic vein (lateral side of arm), left; distraction, intradermal injection, tolerated well, appears comfortable; 02/24/24; 92802/17/24 0715 by Jeanette Gonzalez RN 02/24/24 0929 by Scahi Fajardo LNA ETT ETT Type: Cuffed; ET [...] th e electric, gas, oil, or water [employer] threatened to shut off services in [...] Procedure Summary Date: 02/17/24 Room / Location: [facility] OR [address] [place] [address] MAIN OR Anesthesia Start: 734 Anesthesia Stop: [...] shown include unfiled device data. Patient Location: [facility] Level of Consciousness: Sedated (Pharmacologic/Intentional) Pain [...] 08/14/2023 ??? Nevus of face 09/26/2023 Right jewish No past surgical history on file. Social [...] PM EST Office Visit Cardiology at [address] [place] [address] [facility] [place] [address] documented as of this encounter [...] mg documented in this encounter Care Teams Engineering And Operations Director Relationship Specialty Start Date End Date Vanessa Christian APRN PCP - General Family Medicine 10/21/23 05/26/24 documented as of this encounter
--- OUTSIDE RECORDS SUMMARY | 2024-06-15 08:28 | XMS_ITS | Encounter Summary ---
Author Organization [facility] Ivana [facility] [place] [address] Care Team Providers Care Physicist Solid State Name Role Phone Vanessa Christian MAURI Primary Care Provider [phone] Reason for Visit * Auth/Cert (Routine) Specialty [...] MD [facility] [place] [address] [facility] Referral ID Status Reason Start Date Expiration Date Visits Re quested Visits Authorized [id number] 1 1 Encounter Details Date Type Department Care Team (Latest Contact Info) Description 02/03/2024 8:06 AM EDT - 02/03/2024 2:54 PM EDT Hospital Encounter [place] [address] Rima Dickinson MD [facility] [place] [address] Screening for cardiovascular condition; Aortic valve stenosis, [...] lbs Follow-up Visits Follow up with your chemist steroids in 2-4 weeks Access Site 'Black and Blue' and tenderness is expected during the first week Call if you noted a mass (lump) greater than the size of a ellis Call Office with any Questions and if you have any of the following Clarence Lane M.D Interventional Automatic Toe Laster Adzing And Boring Machine Helper #: [phone] * Attachments The following attachments cannot be sent through Care Everywhere. * CAD (Coronary Artery Disease): General Info (Djiboutian) * Coronary Angiogram: Post-op (Djiboutian) documented in this encounter Medications at Time [...] Lane MD - 02/03/2024 11:48 AM EDT [facility] Interventional Cardiology Adult Pre-Procedure H&P Update: Cardiac Catheterization Karlos Anthony [id number] 1960 Chief Complaint: Aortic stenosis HPI: Mr. [...] is inthe chart Clarence Lane MD Interventional Automatic Toe Laster 02/03/24 11:48 AM documented in this encounter Miscellaneous Notes * Brief Op Note - Clarence Lane MD - 02/03/2024 12:51 PM EDT Preliminary Cardiac Catheterization Procedure Note: Patient Name: Karlos Anthony : [id number] MR#: [id number] Case Date: 02/03/2024 Adzing And Boring Machine Helper: Surgeon(s) and Role: * Saira Lua [...] PM EST Office Visit Cardiology at [address] [address] Neftali Ernandez MD [facility] [place] [address] Scheduled Orders Name Type Priority Associated Diagnoses [...] Modality Other Narrative 02/12/2024 3:47 PM EDT ?[facility] ? Cardiac Catheterization/Intervention Report ? Patient Name: Patenaude, Karlos ? Procedure Date: 02/03/2024 ? A #: [id number] ? Primary Physician: Saira Lua ? Case #: [id number] ? File Name: [id number] ? Catheterization Order Number: [id number] ? [facility] ? Final Report [place], [place] ? Patient Name: ? Karlos Patenaude ? ID#: ?[id number] ? : ?1960 ? Procedure Date: ? [...] Procedure Note Saira Lua MD - 02/12/2024 [facility] Cardiac Catheterization/Intervention Report Patient Name: Karlos Anthony Procedure Date: 02/03/2024 A #: [id number] Primary Physician: Saira Lua Case #: [id number] File Name: [id number] Catheterization Order Number: [id number] [facility] FinalReport [place], [place] Patient Name: Karlos Anthony ID#:[id number] :1960 Procedure Date: February 03, 2024 Case [...] III. The [facility] clinical frailty scale is 3: Managing Well. [...] (Bezet) 372 ms MUSE SYSTEM Calculated P [place] 59 degrees MUSE SYSTEM Calculated R [place] 34 degrees MUSE SYSTEM Calculated T [place] 63 degrees MUSE SYSTEM INTERPRETATION Sinus bradycardia [...] MD) documented in this encounter Care Teams Physicist Solid State Relationship Specialty Start Date End Date Vanessa Christian APRN PCP - General Family Medicine 10/21/23 05/26/24 documented as of this encounter
--- OUTSIDE RECORDS SUMMARY | 2024-06-15 08:28 | XMS_ITS | Encounter Summary ---
Author Organization [facility] Address [facility] Ivana linareseileen [place] [id number] Care Team Providers Care Office Automation Clerk Name Role Phone Vanessa Christian MAURI Primary Care Provider [phone] Reason for Referral * Consultation (Routine) - Closed Specialty Diagnoses / Procedures Referred By Contac t Referred To Contact Cardiac Surgery Diagnoses Nonrheumatic aortic valve stenosis significant - TAVR ( defers to Card Surg d/t age) Errol Loya MD [facility] [place] [address] Zak Farmer MD [facility] [place] [address] Referral ID Status Reason Start Date Expiration Date V isits Requested Visits Authorized [id number] Closed Consult, Test & Treat 10/21/2023 10/20/2024 1 1 Reason for Visit * Reason Comments Chest Pain Shortness of Breath Aortic Stenosis Encounter Details Date Type Department Care Team (Late st Contact Info) Description 10/21/2023 1:20 PM EST Office Visit Cardiology at [address] [address] Errol Loya MD [facility] [place] [address] Nonrheumatic aortic valve stenosis Social History Tobacco [...] stenosis 12/2022 [facility] ([facility]): VITA 0.8-0.9 cm2 (MG 28 mmHg, DOI 3.6 m/s, SVI 35 cc/m2). Trace regurgitation. Normal bi-v s/f, no other valve findings Gastroesophageal reflux Nevus of face Right moravian Hypertension HLD (hyperlipidemia) MEDICATIONS: Current Outpatient Medications [...] the meantime will refer to T at [facility] [...] the meantime will refer to T at [facility] [...] PM EST Office Visit Cardiology at [address] [place] [place] [address] Errol Loya MD [facility] [place] [address] Scheduled Referrals Name Type Priority Associated Diagnoses Order Schedule Amb Referral to Structural Heart Outpatient Referral Routine Nonrheumatic aortic valve stenosis Ordered: 10/21/2023 documented as of this encounter Visit Diagnoses Diagnosis Nonrheumatic aortic valve stenosis Aortic valve disorders documented in this encounter Care Teams Office Automation Clerk Relationship Specialty Start Date End Date Vanessa Christian APRN PCP - General Family Medicine 10/21/23 05/26/24 documented as of this encounter
--- OUTSIDE RECORDS SUMMARY | 2024-06-15 08:28 | XMS_ITS | Encounter Summary ---
Author Organization [facility] [place] [address] Care Team Providers Care Commercial Real Estate Broker Name Role Phone Vanessa Christian Lane DOTSON Primary Care Provider [phone] Encounter Details Date Type Department Care Team (Late st Contact Info) Description 01/09/2024 2:30 PM EDT Clinical Support Same Day at [facility] [place] [phone] Social History Tobacco Use Types Packs/Day Years [...] you tube link for a video about [facility] cardiac surgery. Instructed to bring [...] type and screen performed while in the [facility]. Sent to Radiology for chest x-ray. Special medication instructions: None Procedure date: not booked. Darian documented in this encounter Plan of Treatment Upcoming Encounters Date Type Department Care Team (Late st Contact Info) Description 11/30/2024 3:00 PM EST Office Visit Cardiology at [address] [place] [address] Neftali Ernandez MD [facility] [place] [address] documented as of this encounter Visit Diagnoses Not on filedocumented in this encounter Care Teams Commercial Real Estate Broker Relationship Specialty Start Date End Date Vanessa Christian APRN PCP - General Family Medicine 10/21/23 05/26/24 documented as of this encounter
--- OUTSIDE RECORDS SUMMARY | 2024-06-15 08:28 | XMS_ITS | Encounter Summary ---
Author Organization [facility] [place] [address] Care Team Providers Care Adult Nurse Practitioner Name Role Phone Vanessa Christian APRN Primary Care Provider [phone] Encounter Details Date Type Department Care Team (Late st Contact Info) Description 10/21/2023 Abstract Cardiology at [address] [phone] Adam Mayes RN Social History Tobacco Use [...] PM EST Office Visit Cardiology at [address] [address] Neftali Ernandez MD [facility] [place] [address] documented as of this encounter Visit Diagnoses Not on filedocumented in this encounter Care Teams Adult Nurse Practitioner Relationship Specialty Start Date End Date Vanessa Christian APRN PCP - General Family Medicine 10/21/23 05/26/24 documented as of this encounter
--- OUTSIDE RECORDS SUMMARY | 2024-06-15 08:28 | XMS_ITS | Encounter Summary ---
Author Organization [facility] Address [facility] [place] [address] Care Team Providers Care Pet Care Attendant Name Role Phone Vanessa Christian MAURI Primary Care Provider [phone] Encounter Details Date Type Department Care Team (Latest Contact Info) Description 01/09/2024 3:02 PM EDT - 01/09/2024 11:59 PM EDT Hospital Encounter XRay at [address] [place] [address] Zak Farmer MD [facility] [place] [address] Nonrheumatic aortic valve stenosis Discharge Disposition: Home Social History Tobacco Use Types Packs/Day Years Used Date Smoking Tobacco: Former Cigarettes Smokeless Tobacco: Never Comments:Quit 15 + years ago Alcohol Use Standard Drinks/Week Comments Yes 0 (1 standard drink = 0.6 oz pur e alcohol) rare [facility] Inpatient Questions Answer Date Recorded [...] PM EST Office Visit Cardiology at [address] [place] [address] Neftali Ernandez MD [facility] [place] [address] documented as of this encounter Procedures Procedure [...] who have questions please contact the health long term care social worker that requested your imaging first. ? [...] patients who have questions please contactthe health long term care social worker that requested your imaging first. Zak Farmer MD IMG DX ORDERABLES documented in this encounter Visit Diagnoses Diagnosis Nonrheumatic aortic valve stenosis Aortic valve disorders documented in this encounter Care Teams Pet Care Attendant Relationship Specialty Start Date End Date Vanessa Christian APRN PCP - General Family Medicine 10/21/23 05/26/24 documented as of this encounter
--- OUTSIDE RECORDS SUMMARY | 2024-06-15 08:28 | XMS_ITS | Encounter Summary ---
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 ( defers to Card Surg d/t age) Neftali Ernandez MD [facility] [place] [address] Zak Farmer MD [facility] [place] [address] Referral ID Status Reason Start Date Expiration Date V isits Requested Visits Authorized [id number] Closed Consult, Test & Treat 10/21/2023 10/20/2024 1 1 Encounter Details Date Type Department Care Team (Late st Contact Info) Description 01/09/2024 1:40 PM EDT Office [place] [address] Zak Farmer MD [facility] [place] [address] Nonrheumatic aortic valve stenosis Social [...] office. Best personal regards, Zak Farmer MD [phone] In aggregate 55 minutes were spent evaluating [...] PM EST Office Visit Cardiology at [address] [place] [address] Neftali Ernandez MD [facility] [place] [address] documented as of this encounter Results * [...] who have questions please contact the health respiratory care specialist that requested your imaging first. [...] patients who have questions please contactthe health respiratory care specialist that requested your imaging first. Zak Farmer MD IMG DX ORDERABLES * Basic Metabolic Panel (non-fasting) (01/09/2024 2:58 PM EDT) Glucose 102 65 - 199 mg/dL [facility] Comment:Diabetes: >=200 mg/d L plus symptoms Blood Urea Nitrogen 15 10 - 20 mg/dL [facility] Creatinine 0.94 0.80 - 1.50 mg/dL [facility] Sodium 137 135 - 145 mmol/L [facility] Potassium 4.5 3.5 - 5.0 mmol/L [facility] Comment: Please note: ??Patients with WBC >100,000 may have falsely elevated Potassium levels. ??For accurate Potassium quantification in these patients send serum separator tube (gold top) for subsequent determinations. ??Contact the Clinical Chemistry Laboratory if there are any questions. Chloride 103 98 - 107 mmol/L [facility] Carbon Dioxide 27 22 - 31 mmol/L [facility] Anion Gap 7 5 - 15 mmol/L [facility] Calcium 9.5 8.5 - 10.5 mg/dL [facility] Est Glomerular Filtration Rate 91 >=60 mL/min/1. 73 m?? [facility] [...] Lab Zak Farmer MD CHEMISTRY ORDERABLE S [facility] [place] [address] * Hepatic Function Panel (01/09/2024 2:58 PM EDT) Pathologist [facility] Protein, Total 6.7 6.1 - 8.0 g/dL [facility] Albumin 4.5 3.2 - 5.2 g/dL [facility] Aspartate Aminotransferase 21 0 - 39 unit/L [facility] Alanine Aminotransferase 21 0 - 55 unit/L [facility] Alkaline Phosphatase 81 40 - 130 unit/L [facility] Bilirubin, Total 0.7 0.2 - 1.3 mg/dL [facility] Bilirubin, Direct 0.2 0.0 - 0.3 mg/dL [facility] Blood 01/09/2024 2:58 PM EDT 01/09/2024 3:03 PM EDT Narrative Resulting Agency Comment Spec In Lab Zak Farmer MD CHEMISTRY ORDERABLE S Performing Organization Address [facility] Co de Phone Number [facility] [place] [address] * Prothrombin Time (01/09/2024 2:58 PM EDT) [facility] Prothrombin Time 10.6 9.4 - 12.5 sec [facility] International Normalization Ratio 0.9 [facility] Comment: An [...] MD HEMATOLOGY ORDERABL ES Performing Organization Address [facility]/ZIP Co de Phone Number [facility] [place] [address] * Type and Screen Future Surgery, [facility] SAME DAY PROGRAM ONLY) (01/09/2024 2:58 PM EDT) [facility]OR[facility] Type O NEGATIVE [facility] Patient BB History Not Found [facility] Expires at 2359 on: 02-20-2024 [facility] Ab Screen Interp Negative [facility] Blood 01/09/2024 2:58 PM EDT 01/09/2024 2:58 PM EDT Narrative Resulting Agency Comment Spec In Lab Zak Farmer MD BLOOD BANK LAB CECILIO ALEMAN [facility] Organization Address City/State/ZIP Co de Phone Number [facility] [place] [address] documented in this encounter Visit Diagnoses Diagnosis Nonrheumatic aortic valve stenosis Aortic valve disorders Nonrheumatic aortic valve stenosis Aortic valve disorders documented in this encounter Care Teams Assembler Convertible Top Relationship Specialty Start Date End Date Vanessa Christian APRN PCP - General Family Medicine 10/21/23 05/26/24 documented as of this encounter
--- OUTSIDE RECORDS SUMMARY | 2024-06-15 08:28 | XMS_ITS | Encounter Summary ---
Author Organization [facility] [place] [place] [address] Care Team Providers Care Turntable Worker Name Role Phone Vanessa Christian APRN Primary Care Provider [phone] Encounter Details Date Type Department Care Team (Late st Contact Info) Description 12/26/2023 Notes Only Cardiology at [address] [address] Neftali Ernandez MD [facility] [place] [address] Social History Tobacco Use Types Packs/Day Years [...] 1:37 PM EDT Echocardiogram images reviewed from [facility]. Indeed, the aortic valve appears severely stenotic. Cannotrule out bicuspid valve documented in this encounter Plan of Treatment Upcoming Encounters Date Type Department Care Team (Late st Contact Info) Description 11/30/2024 3:00 PM EST Office Visit Cardiology at [address] [address] Neftali Ernandez MD [facility] [place] [address] documented as of this encounter Visit Diagnoses Not on filedocumented in this encounter Care Teams Turntable Worker Relationship Specialty Start Date End Date Vanessa Christian APRN PCP - General Family Medicine 10/21/23 05/26/24 documented as of this encounter
--- OUTSIDE RECORDS SUMMARY | 2024-06-15 08:28 | XMS_ITS | Encounter Summary ---
Author Organization [facility] [place] [address] Care Team Providers Care Boat Rigger Name Role Phone Aparna Jordan MAURI Primary Care Provider Reason for Visit [...] ARTERIAL GRAFT (WRVU 7.93) Hayder Graham MD [facility] [place] [address] [facility] Referral ID Status Reason Start Date Expiration Date Visits Re quested Visits Authorized [id number] 1 1 Encounter Details Date Type Department Care Team (Late st Contact Info) Description 02/17/2024 7:30 AM EDT - 02/17/2024 1:26 PM EDT Surgery [place] [id number] Hayder Graham MD [facility] [place] [address] ENDOSCOPIC HARVEST VEIN(S) FOR CABG (WRVU 0.31) [...] Patient Age: 63 y.o. Birthdate: 1960 Language: Slovak Race: White Ethnicity: Not nor Admit Date: 02/17/2024 Discharge Date: 02/24/24 Attending Physician: Hayder Graham MD Follow-up Recommendations for Providers: Please continue routine management of cardiovascular risk factors including blood pressure, lipids,glucose, etc. Please note any changes to medications. Patient to follow up with PCP, Aparna Jordan APRN, in 1-2 weeks. Patient to follow up with Hospital Insurance Representative, Neftali Ernandez MD , in 2 weeks. Patient to follow up with Cardiac Surgeon, Dr. Hayder Graham, with a chest x-ray, EKG, and Echo. Inpatient Provider Contact Information: [facility] Section of Cardiac Surgery [facility] [address] FAX [phone] Discharge Diagnoses (Hospital Problems) Primary Diagnoses: /CAD [...] 33.75) performed by Hayder Graham MD at [facility] MAIN OR PRO CABG, ARTERY-VEIN, TWO N/A 02/17/2024 @CABG, TWO VENOUS GRAFTS & ARTERIAL GRAFT (WRVU 7.93) performed by Hayder Graham MD at [facility] MAIN OR PRO ENDOSCOPY W/VIDEO-ASST VEIN HARVEST, CABG Left 02/17/2024 ENDOSCOPIC HARVEST VEIN(S) FOR CABG (WRVU 0.31) performed by Hayder Graham MD at [facility] MAIN OR PRO REPLACEMENT PROSTHETIC AORTIC VALVE OPEN W CARDIOPULMONARY BYPASS HOMOGRF/STENT N/A 02/17/2024 @REPLACE AORTIC VALVE, OPEN, W\CPB, W\PROSTHETIC VALVE (WRVU 41.32) performed by Hayder Graham MD at [facility] MAIN OR Prior To Admission Medications [...] insufficiency. He has glaucoma. He used to [employer] until about 15 years ago. He has undergone prior herniorrhaphy. 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 Major Procedures/Operations: 02/17/24 s/p avr/cabgx3 CABG x 3 JOSE->LAD SVG->dRCA SVG->OM1 EVH from LLE AVR with a 23 mm Inspiris Bioprosthesis Hospital Course: Karlos Garcia was admitted to [facility] on 02/17/2024 via the Same Day [...] Hayder Graham and/or the Cardiac Surgery Physician Softball Umpire Team may be reached at . Antibiotic [...] Please refer to the card with the [place] Heart Association Guidelines for more information. You [...] Dr. Hayder Graham. You may use a [place] Track or treadmill but avoid any pulling [...] friends, go to a movie, go to amish, etc. Heavy activities: No hunting, skiing, jogging, [...] should resume a low fat, low cholesterol, [place] Heart Association Diet. Driving: No driving until [...] while being managed by your PCP and/or Hospital Insurance Representative. For future medication refills, please refer to your PCP and/or Hospital Insurance Representative after your discharge from our service. Thank you REMOVE CHEST TUBE SUTURES ON OR AFTER 03/02/24 Home oxygen therapy: N/A Follow up appointments: You should follow up with your PCP, Aparna Jordan APRN, in 1-2 weeks. Our office will schedule an appointment with your Hospital Insurance Representative, Neftali Ernandez MD , in 2 weeks. You have an appointment with your Cardiac Surgeon, Dr. Hayder Graham, 4 weeks with a chest x-ray, EKG, and Echo before your appointment. Cardiac Rehabilitation: Karlos Garcia was seen regarding participation in the outpatient Phase 2Cardiac Rehabilitation at [facility]. The patient agrees to a referral to this program. The referral will be sent at discharge and the patient should be contacted by the Program within 1- 2 weeks from discharge. Future Appointments and Orders Future Orders Complete By Expires Echocardiogram Transthoracic [20531 CPT(R)] 03/26/2024 09/25/2024 Process Instructions: Scheduling Instructions: Questions: Where will study be performed?: [facility] Does the patient have Congenital Heart Disease?: Does patient require sedation?: Sedation rationale: XR Chest PA & Lateral (Generic) [34929 04337 Custom] 03/26/2024 09/25/2024 Process Instructions: Scheduling Instructions: Questions: Portable exam?: Reason for exam and clinical history: s/p avr/cabg Clinical information / jerome questions for radiologist: Stat read required?: Date of injury if applicable: Requested Time: Where will study be performed?: [facility] Radiology Referral to Cardiac Rehab [[id number] Custom] As directed Process Instructions: If no progress note charted, please enter Clinical details in comments. Scheduling Instructions: Questions: My question or request is: s/p AVR/CABG. Cardiac rehab at [facility]. Referral to Home Health [REF34 Custom] As directed Process Instructions: If no progress note charted, please enter Clinical details in comments. Scheduling Instructions: Comments: Please evaluate Karlos Garcia for admission to Home Health. [address] Phone Number: Date of : 1960 Inpatient DOCUMENTATION FOR VNA SERVICES (INCLUDING THOSE PATIENTS WITH MEDICARE COVERAGE REQUIRING HOME VNA SERVICES AND/OR HOSPICE SERVICES) PATIENT'S LOCATION: Karlos Garcia [address] [employer] [phone] Lock Stitch Channeler's Name: self/family In discussion with the attending physician, it is certified that this patient is under their care and that they, or a Nurse Practitioner, or Physician Softball Umpire who is working directly with them, hada [...] for services as follows: HOME HEALTH AGENCY: [facility] [address] [place] [address] RN orders: Cardiopulmonary assessment, incisional assessment, assess [...] issues please call the Cardiology Office at [phone] FOR MEDICARE ONLY: (please delete this section [...] care: As above. Signed: NEFTALI MENON PA-C [facility] Section of Cardiac Surgery [facility] [phone] FAX [phone] Date: 02/24/2024 CC: Aparna Jordan, MAURI Jordan, Aparna Sherman APRN [address] [place] [address] documented in this encounter Discharge Instructions * [...] Hayder Graham and/or the Cardiac Surgery Physician Softball Umpire Team may be reached at . Antibiotic [...] Please refer to the card with the [place] Heart Association Guidelines for more information. You [...] Dr. Hayder Graham. You may use a [place] Track or treadmill but avoid any pulling [...] friends, go to a movie, go to amish, etc. Heavy activities: No hunting, skiing, jogging, [...] should resume a low fat, low cholesterol, [place] Heart Association Diet. Driving: No driving until [...] while being managed by your PCP and/or Hospital Insurance Representative. For future medication refills, please refer to your PCP and/or Hospital Insurance Representative after your discharge from our service. Thank you REMOVE CHEST TUBE SUTURES ON OR AFTER 03/02/24 Home oxygen therapy: N/A Follow up appointments: You should follow up with your PCP, Aparna Jordan APRN, in 1-2 weeks. Our office will schedule an appointment with your Hospital Insurance Representative, Neftali Ernandez MD , in 2 weeks. You have an appointment with your Cardiac Surgeon, Dr. Hayder Graham, 4 weeks with a chest x-ray, EKG, and Echo before your appointment. Cardiac Rehabilitation: Karlos Garcia was seen regarding participation in the outpatient Phase 2Cardiac Rehabilitation at [facility]. The patient agrees to a [...] 0600 and on the weekends please page [phone]. * Eric Barahona PA - 02/23/2024 9:27 [...] 0600 and on the weekends please page [phone]. * Tiffanie Owens - 02/22/2024 2:48 PM [...] Pt reports his dtr is coming from [place] to stay upon d/c for 10 days. 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 He works Precautions/Special Considerations: STERNAL [...] LRAD and supervision Time IN / OUT: 4450-2611 Total Time: 30 minutes; TEFx2 Tiffanie Owens Pager: [phone] Physical Therapy Inpatient Rehabilitation Department * Romeo [...] on the weekends please page [phone]. * Kelley Hinson DEICER TESTER - 02/21/2024 10:15 AM EDT Physical Therapy [...] Pt reports his dtr is coming from [place] to stay upon d/c for 10 days. 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 He works Precautions/Special Considerations: STERNAL [...] LRAD and supervision Time IN / OUT: 5532-3763 Total Time: 25 minutes; TEF 2 Kelley Hinson PTA Pager: [phone] Physical Therapy Inpatient Rehabilitation Department * Louisa [...] 0600 and on the weekends please page [phone]. * Kelley Hinson PTA - 02/20/2024 3:32 [...] at that time Kelley Hinson PTA Pager: [phone] Physical Therapy Inpatient Rehab Department * Louisa [...] 0600 and on the weekends please page [phone]. * Maris Benavides, PT - 02/19/2024 11:22 [...] Pt reports his dtr is coming from [place] to stay upon d/c for 10 days. 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 Precautions/Special Considerations: STERNAL [...] outlined inthis evaluation. MARIS BENAVIDES, PT Pager: [phone] Physical Therapy Inpatient Rehabilitation Department Time IN / OUT: 5981-5869 Total Time: 38 (eval) minutes; * Antonio [...] 0600 and on the weekends please page [phone]. * Minnie Begum PA - 02/18/2024 8:25 [...] 0600 and on the weekends please page [phone]. * Kim Ha QUILL MACHINE OPERATOR - 02/17/2024 2:25 PM EDT [...] plan since last visit. Hayder Graham MD [phone] Source Note - Hayder Graham MD - [...] given written informed consent. Hayder Graham MD [phone] * Hayder Graham MD - 02/17/2024 7:00 [...] given written informed consent. Hayder Graham MD [phone] documented in this encounter Miscellaneous Notes * [...] information for follow-up Home Health & Hospice, [address] [place] [address] Cardiac Rehab, [address] [place] [address] Transportation: family or friend will provide Functional status prior to admission: Independent Home Environment: Others in the home: alone. Current Living Arrangements: home/apartment/condo. Accessibility Concerns:a few steps to enter 1 floor home. Current Functional Ability: Assistive Person and Equipment DME used at home: none DME Needed at Discharge: N/A Patient is insured through: Primary Insurance: [employer] Payor: [facility] / Plan: [facility] PPO / Product Type: *No Product [...] pain managed with scheduled Tylenol. Worked with [employer]. Ambulated in the roque multiple times during [...] anticipated Patient is insured through: Primary Insurance: [facility] Payor: [facility] / Plan: [facility] PPO / Product Type: *No Product type* / Secondary Insurance: N/A Last Physical Therapy Recommendation: home with home health (Str coming to stay for a week or two upon d/c) with to be determined (owns rolling walker, shower seat) Plan for discharge is: Home w/ Services Outpatient Agency/Support Group Needs: Homecare agency Home Health Services: Physical Therapy, Registered Nurse Agency Referrals: [facility]. [address] [place] [address] Transportation: family or friend will provide Barriers to discharge: Discharge planning Plan going forward: Service Care Management will continue to follow and assist with discharge planning and coordination of care as indicated. Anticipated Date of Discharge: 02/22/2024 Rhett Bell RN RN/CM - Cellphone: [phone] Pager: [phone] Covering Service RN/CM * Plan of Care [...] - 02/19/2024 10:44 AM EDT [facility] Karlos Garcia was seen today regarding participation in the outpatient Phase 2 Cardiac Rehabilitation at [facility]. The patient agrees to a [...] surrogate would be surrogate decision maker per [place] surrogate decision making law. (Only good for 180 days) Any patient receiving care in [place] must abide by [place] law. The hierarchy for surrogate decision making [...] (i) The agent with financial power of lock stitch channeler or a conservator appointed in accordance with [...] steady place to sleep or slept in [facility] (including now)?: No In the past 12 months has the [employer], gas, oil, or water [employer] threatened to shut off services in your [...] Home Address confirmed as: [address] [facility] [address] Physical address: [address] [facility], [address] Social & Family Supports: All names listed [...] Information: none noted Health/Prescription Coverage: Primary Insurance: [facility] Payor: [facility] / Plan: [facility] PPO / Product Type: *No Product type* / Secondary Insurance: N/A ; Prescription Coverage: Yes Preferred Pharmacy: [id number] [address] [place] Status: Patient is a : No Primary Care Provider confirmed: Aparna Jordan APRN [phone] Patient/Caregiver Goals of Treatment: dc to home Potential Needs for Transition of Care: home health care Agency Referrals: I have met with the patient to: discuss discharge planning needs. provide the [facility], Office of Care Management letter from the Graves Registration Specialist pertaining to rehab referrals. provide a letter describing our affiliations within the [facility] and educate about their right to choose where referrals are sent. provide a list of Home Health Agencies / Durable Medical Equipment vendors which serve their preferred geographic area. provided patient with [facility] Star Quality Rating handout. They have requested referrals to: [facility] [address] [place] [address] Note routed to a Evening Anchor who will communicate referrals to facilities and [...] daughter, Cielo, will be coming in from [place] on 02/18, to stay with him , [...] Reina Greene RN CM, BSN, CMGT- Ext [phone] * Plan of Care - Binta Trinidad [...] Operative Note Patient Name: Karlos Garcia : [id number] MR#: [id number] Case Date: 02/17/2024 Surgeon: Surgeon(s) and Role: * Hayder Graham MD - Primary * Neftali Menon PA - Physician Softball Umpire Preoperative diagnosis: CAD Postoperative diagnosis: CAD, intraoperative [...] Drains: Mediastinal and Left pleural Disposition: [facility] Condition: doing well without problems Attestation: Case Date: 02/17/2024 I performed this procedure without the involvement of a resident. HAYDER GRAHAM MD 02/17/2024 * Op Note - Hayder Graham MD - 02/17/2024 8:20 AM EDT [facility] Operative Note Patient Name: Karlos Garcia : [id number] MR#: [id number] Case Date: 02/17/2024 Surgeon: Surgeons and Role: * Hayder Graham MD - Primary * Neftali Menon PA - Physician Softball Umpire Preoperative diagnosis: CAD Postoperative diagnosis: CAD, intraoperative [...] Drains: Mediastinal and Left pleural Disposition: [facility] Procedure Description: The patient was brought [...] PM EST Office Visit Cardiology at [address] [address] Neftali Ernandez MD [facility] [place] [address] Scheduled Orders Name Type Priority Associated Diagnoses [...] Aortic Valve Open W Cardiopulmonary Bypass Homogrf/Stent (90572) Yes 02/17/2024 7:28 AM EDT CAD Cabg, Artery-Vein, Two (23203) Yes 02/17/2024 7:28 AM EDT CAD Cabg, Arterial, Single (61123) Yes 02/17/2024 7:28 AM EDT CAD Endoscopy W/Video-Asst Vein [place], Cabg (62822) Yes 02/17/2024 7:28 AM EDT CAD POCT GLUCOSE Routine 02/17/2024 6:38 AM EDT TRANSESOPHAGEAL ECHOCARDIOGRAM IN THE OR Routine 02/17/2024 6:33 AM EDT Aortic valve stenosis, etiology of cardiac valve disease unspecified LAB SCAN 02/17/2024 12:00 AM EDT IMPLANTABLE DEVICES SCAN 02/17/2024 12:00 AM EDT documented in this encounter Results * Potassium (02/24/2024 4:42 AM EDT) Potassium 4.0 3.5 - 5.0 mmol/L [facility] [...] Lab Hayder Graham MD CHEMISTRY ORDERABLE S [facility] [place] [address] * (ABNORMAL) Basic Metabolic Panel (non-fasting) (02/23/2024 [...] MD CHEMISTRY ORDERABLES [facility] [place] [address] * Potassium (02/22/2024 4:30 AM EDT) Potassium 3.5 3.5 - 5.0 mmol/L [facility] [...] Lab Hayder Graham MD CHEMISTRY ORDERABLE S [facility] [place] [address] * (ABNORMAL) Basic Metabolic Panel (non-fasting) (02/21/2024 9:45 AM EDT) Glucose 123 65 - 199 mg/dL [facility] Comment:Diabetes: >=200 mg/d L plus symptoms Blood Urea Nitrogen 22(H) 10 - 20 mg/dL [facility] Creatinine 0.78(L) 0.80 - 1.50 mg/dL [facility] Sodium 140 135 - 145 mmol/L [facility] Potassium 3.9 3.5 - 5.0 mmol/L [facility] Comment: Please note: ??Patients with WBC >100,000 may have falsely elevated Potassium levels. ??For accurate Potassium quantification in these patients send serum separator tube (gold top) for subsequent determinations. ??Contact the Clinical Chemistry Laboratory if there are any questions. Chloride 100 98 - 107 mmol/L [facility] Carbon Dioxide Not Perf 22 - 31 [facility] Comment:Add-on request. Yolanda le too old to perform test. Anion Gap Unable to Calculate 5 - 15 mmol/L [facility] Calcium 8.6 8.5 - 10.5 mg/dL [facility] Est Glomerular Filtration Rate 100 >=60 mL/min/1 .73 m?? [facility] Comment: This [...] MD CHEMISTRY ORDERABLES [facility] [place] [address] * Lactate, whole blood, send to lab ([facility]) (02/21/2024 9:45 AM EDT) [facility] Lactate WB 2.0 0.5 - 2.2 mmol/L [facility] Blood 02/21/2024 9:45 AM EDT 02/21/2024 9:52 AM EDT Narrative Resulting Agency Comment Spec In Lab Hayder Graham MD CHEMISTRY ORDERABLE S Performing Organization Address [facility] Co de Phone Number [facility] [place] [address] * (ABNORMAL) Hepatic Function Panel (02/21/2024 9:45 AM EDT) [facility] Protein, Total 5.7(L) 6.1 - 8.0 g/dL [...] Comment Spec In Lab Hayedr Graham MD CHEMISTRY ORDERABLE S [facility] [place] [address] * Lipase (02/21/2024 9:45 AM EDT) Lipase 56 0 - 60 unit/L [facility] Blood 02/21/2024 9:45 AM EDT 02/21/2024 9:52 AM EDT Narrative Resulting Agency Comment Spec In Lab Hayder Graham MD CHEMISTRY ORDERABLE S [facility] [place] [address] * Amylase (02/21/2024 9:45 AM EDT) Amylase 69 28 - 100 unit/L [facility] Blood 02/21/2024 9:45 AM EDT 02/21/2024 9:52 AM EDT Narrative Resulting Agency Comment Spec In Lab Hayder Graham MD CHEMISTRY ORDERABLE S Performing Organization Address City/[facility]/ZIP Co de Phone Number [facility] [place] [address] * Potassium (02/21/2024 3:08 AM EDT) Potassium 3.8 3.5 - 5.0 mmol/L [facility] [...] Lab Hayder Graham MD CHEMISTRY ORDERABLE S [facility] [place] [address] * XR Chest PA & Lateral (Generic) (02/20/2024 10:19 AM EDT) WORKSTATION ID [id number] RAD Anatomical Region Laterality Modality Chest N/A Digital Radiogra phy Impressions 02/20/2024 1:11 PM EDT Small pleural effusions. No pneumothorax Thank you for letting us participate in the care of this patient. ??If you are a health care provider and have any questions regarding this report, please contact the number below. ??For patients who have questions please contact the health pet care attendant that requested your imaging first. ? Electronically signed by: Rogerio Cruz MD, [facility] ??([phone]), at 02/20/2024 1:11 PM Narrative 02/20/2024 1:11 PM EDT EXAMINATION: XR CHEST PA AND LATERAL (GENERIC) CLINICAL HISTORY: s/p AVR/CABGx3 TECHNIQUE: PA and lateral views of the chest COMPARISON: 02/17/2024 FINDINGS: Support devices: Interval removal of [place]aila catheter, endotracheal tube and mediastinal chest tubes The cardiac silhouette is stable status post median sternotomy, CABG and aortic valve replacement. There are small pleural effusions. No pneumothorax. Procedure Note Rogerio Cruz MD - 02/20/2024 EXAMINATION: XR CHEST PA AND LATERAL (GENERIC) CLINICAL HISTORY: s/p AVR/CABGx3 TECHNIQUE: PA and lateral views of the chest COMPARISON: 02/17/2024 FINDINGS: Support devices: Interval removal of [place]a catheter, endotracheal tubeand mediastinal chest tubes The [...] patients who have questions please contactthe health pet care attendant that requested your imaging first. Electronically signed by: Rogerio Cruz MD, [facility]([phone]), at 02/20/2024 1:11 PM Hayder Graham MD IMG DX ORDERABLES * Scan, Peripheral Blood (02/20/2024 4:23 AM EDT) Pathologist [facility] Plat estimate Decreased [facility] RBC Morphology Normal [facility] Blood 02/20/2024 4:23 AM EDT 02/20/2024 4:42 AM EDT Narrative Resulting Agency Comment Spec In Lab Minnie FRENCH HEMATOLOGY CECILIO ALEMAN [facility] [place] [id number] * (ABNORMAL) Differential, Automated (02/20/2024 4:23 AM EDT) [facility] Neutrophil % 81.7 % [facility] Neutrophil Absolute 10.37(H) 1.70 - 6.10 x10(3)/mc L [facility] Lymph % 7.4 % [facility] Lymphocytes Abs 0.9 0.9 - 3.2 x10(3)/mc L [facility] Monocyte % 9.7 % [facility] Monocyte Abs 1.2(H) 0.3 - 0.9 x10(3)/mc L [facility] Eos % 0.1 % [facility] Eosinophils Abs 0.0 0.0 - 0.4 x10(3)/mc L [facility] Basophil % 0.2 % [facility] Baso Absolute 0.0 0.0 [...] Absolute 0.12(H) 0.00 - 0.04 x10(3)/mc L [facility] Blood 02/20/2024 4:23 AM EDT 02/20/2024 4:42 AM EDT Narrative Resulting Agency Comment Spec In Lab Minnie FRENCH HEMATOLOGY CECILIO ALEMAN [facility] [place] [address] * (ABNORMAL) Hemogram (02/20/2024 4:23 AM EDT) White Blood Cell 12.7(H) 4.0 - 9.5 x10(3)/ L [facility] Red Blood [...] Platelet 88(L) 145 - 357 x10(3)/ L [facility] RDW Standard Deviation 43.5 36.0 - 45.0 fL [facility] RDW coefficient of variation 13.7 11.4 - 13.8 % [facility] Mean Platelet Volume 10.2 7.6 - 12.9 fL [facility] NRBC% auto 0.0 % [facility] NRBC Absolute 0.000 0.000 - 0.000 x10(3)/mc L [facility] Blood 02/20/2024 4:23 AM EDT 02/20/2024 4:42 AM EDT Narrative Resulting Agency Comment Spec In Lab Minnie FRENCH HEMATOLOGY CECILIO ALEMAN [facility] [place] [address] * (ABNORMAL) Basic Metabolic Panel (non-fasting) (02/20/2024 4:23 AM EDT) Glucose 113 65 - 199 mg/dL [facility] Comment:Diabetes: >=200 mg/d L plus symptoms Blood Urea Nitrogen 20 10 - 20 mg/dL [facility] Comment:result rechecked-PA Creatinine 0.71(L) 0.80 - 1.50 mg/dL [facility] Sodium 135 135 - 145 mmol/L [facility] [facility] Potassium 3.9 3.5 - 5.0 mmol/L [facility] Comment: Please note: ??Patients with WBC >100,000 may have falsely elevated Potassium levels. ??For accurate Potassium quantification in these patients send serum separator tube (gold top) for subsequent determinations. ??Contact the Clinical Chemistry Laboratory if there are any questions. Chloride 102 98 - 107 mmol/L [facility] Carbon Dioxide 25 22 - 31 mmol/L [facility] Anion Gap 8 5 - 15 mmol/L [facility] Calcium 8.7 8.5 - 10.5 mg/dL [facility] Comment:result rechecked-KS Est Glomerular Filtration [...] Organization Address [facility] Co de Phone Number [facility] [place] [address] * Potassium (02/19/2024 3:57 AM EDT) Potassium 4.3 3.5 - 5.0 mmol/L [facility] Organization Address [facility]/ZIP Co de Phone Number [facility] [place] [address] * POCT Glucose (02/18/2024 8:24 AM EDT) Glucose, POC 157 65 - 199 mg/dL [facility] Comment: Supplemental ranges: <140 mg/dL before meals <180 mg/dL all other times of the day Blood 02/18/2024 8:24 AM EDT 02/18/2024 8:24 AM EDT Hayder Graham MD POINT OF CARE TEST ORDERABLES Performing Organization Address City/[facility]/ZIP Co de Phone Number [facility] [place] [address] * Scan, Peripheral Blood (02/18/2024 1:40 AM EDT) Plat estimate Decreased [facility] RBC Morphology Normal [facility] Blood 02/18/2024 1:40 AM EDT 02/18/2024 1:56 AM EDT Narrative Resulting Agency Comment Spec In Lab Neftali FRENCH HEMATOLOGY ORDER OLE Performing Organization Address City/[facility] Co de Phone Number [facility] [place] [address] * (ABNORMAL) Differential, Automated (02/18/2024 1:40 AM EDT) [facility] Neutrophil % 87.1 % [facility] Neutrophil Absolute 15.03(H) 1.70 - 6.10 x10(3)/mc L [facility] Lymph % 3.0 % [facility] Lymphocytes Abs 0.5(L) 0.9 - 3.2 x10(3)/mc L [facility] Monocyte % 9.1 % [facility] Monocyte Abs 1.6(H) 0.3 - 0.9 x10(3)/mc L [facility] Eos % 0.0 % [facility] Eosinophils Abs 0.0 0.0 - 0.4 x10(3)/mc L [facility] Basophil % 0.2 % [facility] Baso Absolute 0.0 0.0 - 0.1 x10(3)/mc L [facility] Immature Gran % 0.60 % [facility] Comment: Immature granulocytes(IG's)percentage and absolute count will include metamyelocytes, myelocytes, and promyelocytes. Blood smears from CBCs yielding IG's will be scanned manually for concordance. If this scan disagrees with the automated IG or if promyelocytes are noted, a manual differential will be performed. Immature Gran Absolute 0.10(H) 0.00 - 0.04 x10(3)/mc L [facility] Blood 02/18/2024 1:40 AM EDT 02/18/2024 1:56 AM EDT Narrative Resulting Agency Comment Spec In Lab Neftali FRENCH HEMATOLOGY ORDER OLE [facility] [place] [address] * (ABNORMAL) Hemogram (02/18/2024 1:40 AM EDT) White Blood Cell 17.2(H) 4.0 - 9.5 x10(3)/mc L [facility] Red Blood Cell 4.71 4.58 - 5.54 x10(6)/mc L [facility] Hemoglobin 13.7 13.7 - 16.5 g/dL [facility] Hematocrit 39.2(L) 40.5 - 48.5 % [facility] Mean Cell Volume 83.2 82.9 - 93.1 fL [facility] Mean Cell Hemoglobin 29.1 27.5 - 32.1 pg [facility] Mean Cell Hemoglobin Concentration 34.9 32.0 - 35.7 g/dL [facility] Platelet 147 145 - 357 x10(3)/mc L [facility] RDW Standard Deviation 39.9 36.0 - 45.0 [facility] RDW coefficient of variation 13.2 11.4 - 13.8 % [facility] Mean Platelet Volume 9.9 7.6 - 12.9 fL [facility] NRBC% auto 0.0 % [facility] NRBC Absolute 0.000 0.000 - 0.000 x10(3)/mc L [facility] Blood 02/18/2024 1:40 AM EDT 02/18/2024 1:56 AM EDT Narrative Resulting Agency Comment Spec In Lab Neftali FRENCH HEMATOLOGY ORDER OLE [facility] [place] [address] * (ABNORMAL) Basic Metabolic Panel (non-fasting) (02/18/2024 1:40 AM EDT) Glucose 176 65 - 199 mg/dL [facility] Comment:Diabetes: >=200 mg/d L plus symptoms Blood Urea Nitrogen 10 10 - 20 mg/dL [facility] Creatinine 0.65(L) 0.80 - 1.50 mg/dL [facility] Sodium 135 135 - 145 mmol/L [facility] Potassium 4.2 3.5 - 5.0 mmol/L [facility] Comment: Please note: ??Patients with WBC >100,000 may have falsely elevated Potassium levels. ??For accurate Potassium quantification in these patients send serum separator tube (gold top) for subsequent determinations. ??Contact the Clinical Chemistry Laboratory if there are any questions. Chloride 106 98 - 107 mmol/L [facility] Carbon Dioxide 20(L) 22 - 31 mmol/L [facility] Anion Gap 9 5 - 15 mmol/L [facility] Calcium 7.6(L) 8.5 - 10.5 mg/dL [facility] Est Glomerular Filtration Rate 105 >=60 mL/min/1. 73 m?? [facility] Lab Hayder Graham MD CHEMISTRY ORDERABLE S [facility] [place] [address] * (ABNORMAL) Troponin (02/18/2024 1:40 AM EDT) Pathologist [facility] Troponin-T, High Sensitivity 342(H) <=22 ng/L [facility] [...] can be found in the [facility] Laboratory Test Catalog Troponin - [facility] Laboratory Test Catalog Reference: Fourth [place] Definition of Myocardial Infarction. Journal of the [place] [employer] 2018;72:7039-1983 Blood 02/18/2024 1:40 AM EDT 02/18/2024 1:56 AM EDT Narrative Resulting Agency Comment Spec In Lab Hayder Graham MD CHEMISTRY ORDERABLE S Performing Organization Address [facility] Co de Phone Number [facility] [place] [address] * POCT Glucose (02/17/2024 8:13 PM EDT) Glucose, POC 142 65 - 199 mg/dL [facility] Comment: Supplemental ranges: <140 mg/dL before meals <180 mg/dL all other times of the day Blood 02/17/2024 8:13 PM EDT 02/17/2024 8:13 PM EDT Hayder Graham MD POINT OF CARE TEST ORDERABLES Performing Organization Address [facility] de Phone Number [facility] [place] [address] * POCT Glucose (02/17/2024 5:42 PM EDT) Glucose, POC 160 65 - 199 mg/dL [facility] Comment: Supplemental ranges: <140 mg/dL before meals <180 mg/dL all other times of the day Blood 02/17/2024 5:42 PM EDT 02/17/2024 5:42 PM EDT Hayder Graham MD POINT OF CARE TEST ORDERABLES Performing Organization Address [facility] Co de Phone Number [facility] [place] [address] * Hemoglobin (02/17/2024 5:42 PM EDT) Hemoglobin 13.7 13.7 - 16.5 g/dL [facility] Blood 02/17/2024 5:42 PM EDT 02/17/2024 6:10 PM EDT Narrative Resulting Agency Comment Spec In Lab Hayder Graham MD HEMATOLOGY ORDERABL ES Performing Organization Address [facility]/ZIP Co de Phone Number [facility] [place] [address] * Potassium (02/17/2024 5:42 PM EDT) Pathologist [facility] Potassium 4.3 3.5 - 5.0 mmol/L [facility] Organization Address [facility] Co de Phone Number [facility] [place] [address] * (ABNORMAL) BLOOD GAS 2 ARTERIAL (02/17/2024 4:18 PM EDT) pH, Arterial 7.34(L) 7.35 - 7.45 [facility] FIO2 Art 40 % [facility] PF Ratio Art 195 [facility] Blood 02/17/2024 4:18 PM EDT 02/17/2024 4:18 PM EDT Hayder Graham MD POINT OF CARE TEST ORDERABLES Performing Organization Address City/State/[facility] Co de Phone Number [facility] [place] [address] * XR Chest One View (02/17/2024 1:44 PM EDT) [employer] WORKSTATION ID [id number] RAD Anatomical Region Laterality Modality Chest N/A Digital Radiogra phy Impressions 02/17/2024 2:12 PM EDT 1. ??No definite pleural fluid collection or pneumothorax. 2. ??Right IJ [facility] catheter tip terminates in a descending branch of the right pulmonary artery. Suggest catheter retraction. 3. ??Additional support lines and tubes as above. Thank you for letting us participate in the care of this patient. ??If you are a health care provider and have any questions regarding this report, please contact the number below. ??For patients who have questions please contact the health pet care attendant that requested your imaging first. ? Electronically signed by: Denzel Hankins MD, [facility] ??([phone]), at 02/17/2024 2:12 PM Narrative 02/17/2024 2:12 PM EDT EXAMINATION: XR CHEST ONE VIEW CLINICAL HISTORY: s/p avr/cabg eval effusions TECHNIQUE: 1 view of the chest COMPARISON: Chest x-ray 01/09/2024, chest CT 02/03/2024 FINDINGS: ET tube tip terminates 5.2 cm above the carlos. Right IJ [facility] catheter tip terminates in a descending branch [...] tube tip terminates 5.2 cm above the carlso. Right IJ [facility]-Ganzcatheter tip terminates in a descending branch of [...] fluid collection or pneumothorax. 2. Right IJ [facility] catheter tip terminates in a descending branch ofthe right pulmonary artery. Suggest catheter retraction. 3. Additional support lines and tubes as above. Thank you for letting us participate in the care of this patient. If youare a health care provider and have any questions regarding this report,please contact the number below. For patients who have questions please contactthe health pet care attendant that requested your imaging first. Electronically signed by: Denzel Hankins MD, [facility]([phone]), at 02/17/2024 2:12 PM Hayder Graham MD IMG DX ORDERABLES * (ABNORMAL) BLOOD GAS 2 ARTERIAL (02/17/2024 1:31 PM EDT) pH, Arterial 7.35 7.35 - 7.45 [facility] PCO2, Arterial 39 35 - 45 mmHg [facility] PO2, Arterial 320(H) 85 - 104 mmHg [facility] Bicarbonate, Arterial 21.4 20.0 - 26.0 mmol/L [facility] Base Excess, Arterial -4.2(L) -3.0 - 3.0 mmol/L [facility] Hgb Blood Gas 14.1 13.7 - 16.5 g/dL [facility] Oxyhemoglobin, Arterial 97.9(H) 94.0 - 97.0 % [facility] Carboxyhemoglob in, Arterial 0.3 % [facility] Comment: Nonsmokers: 0.5-1.5% COHB Smokers: Variable, but usually less than 10% Toxic: 20-30% COHB Lethal: Greater than 60% COHB Methemoglobin, Arterial 0.7 <=1.5 % [facility] Na Whole Blood 137 135 - 145 mmol/L [facility] K Whole Blood 4.2 3.5 - 5.0 mmol/L [facility] Comment: Please note: Patients with WBC >100,000 may have falsely elevated Potassium levels. Contact the Clinical Chemistry Laboratory if there are any questions. ICa Whole Blood 1.13(L) 1.15 - 1.33 mmol/L [facility] Comment: Note: ??Total bilirubin higher than 20 mg/dL may lead to falsely low ionized calcium. CL Whole Blood 108(H) 98 - 107 mmol/L [facility] Gluc Whole Bld 136 65 - 199 mg/dL [facility] Comment:Diabetes: >=200 mg/d L plus symptoms. Lactate WB 1.1 0.5 - 2.2 mmol/L [facility] FIO2 Art 100 % [facility] PF Ratio Art 320 [facility] Blood 02/17/2024 1:31 PM EDT 02/17/2024 1:31 PM EDT Hayder Graham MD POINT OF CARE TEST ORDERABLES [facility] [place] [address] * (ABNORMAL) Coox2 (02/17/2024 1:21 PM EDT) pO2, Coox 44 mmHg [facility] Hgb Blood Gas 13.1(L) 13.7 [...] Graham MD POINT OF CARE TEST ORDERABLES [facility] [place] [address] * (ABNORMAL) BLOOD GAS 2 ARTERIAL (02/17/2024 12:14 PM EDT) pH, Arterial 7.39 7.35 - 7.45 [facility] PCO2, Arterial 40 35 - 45 mmHg [facility] PO2, Arterial 338(H) 85 - 104 mmHg [facility] Bicarbonate, Arterial 23.7 20.0 - 26.0 mmol/L [facility] Base Excess, Arterial -1.3 -3.0 - 3.0 mmol/L [facility] Hgb Blood Gas 11.0(L) 13.7 - 16.5 g/dL [facility] Oxyhemoglobin, Arterial 98.8(H) 94.0 - 97.0 % [facility] Carboxyhemoglob in, Arterial 0.3 % [facility] Comment: Nonsmokers: 0.5-1.5% COHB Smokers: Variable, but usually less than 10% Toxic: 20-30% COHB Lethal: Greater than 60% COHB Methemoglobin, Arterial 0.3 <=1.5 % [facility] Na Whole Blood 135 135 - 145 mmol/L [facility] K Whole Blood 5.1(H) 3.5 - 5.0 mmol/L [facility] Comment: Please note: Patients with WBC >100,000 may have falsely elevated Potassium levels. Contact the Clinical Chemistry Laboratory if there are any questions. ICa Whole Blood 1.13(L) 1.15 - 1.33 mmol/L [facility] Comment: Note: ??Total bilirubin higher than 20 mg/dL may lead to falsely low ionized calcium. CL Whole Blood 106 98 - 107 mmol/L [facility] Gluc Whole Bld 132 65 - 199 mg/dL [facility] Comment:Diabetes: >=200 mg/d L plus symptoms. Lactate WB 1.4 0.5 - 2.2 mmol/L [facility] Blood 02/17/2024 12:1 4 PM EDT 02/17/2024 12:14 PM EDT Hayder Graham MD POINT OF CARE TEST ORDERABLES Performing Organization Address [facility] Co de Phone Number [facility] [place] [address] * (ABNORMAL) Fibrinogen (02/17/2024 12:10 PM EDT) Fibrinogen 154(L) 200 - 393 mg/dL [facility] [...] Organization Address [facility] Co de Phone Number [facility] [place] [address] * (ABNORMAL) Thrombin time (02/17/2024 12:10 PM [...] Organization Address [facility] Co de Phone Number [facility] [place] [address] * APTT (02/17/2024 12:10 PM EDT) Partial [...] Organization Address [facility]/ZIP Co de Phone Number [facility] [place] [address] * (ABNORMAL) Prothrombin Time (02/17/2024 12:10 PM [...] Lab Tara York MD HEMATOLOGY ORDERABLE S [facility] [place] [address] * (ABNORMAL) Hemogram (02/17/2024 12:10 PM EDT) White Blood Cell 11.1(H) 4.0 - 9.5 x10(3)/mc L [facility] Red Blood Cell 3.50(L) 4.58 - 5.54 x10(6)/mc L [facility] Hemoglobin 10.4(L) 13.7 - 16.5 g/dL [facility] Hematocrit 30.2(L) 40.5 - 48.5 % [facility] Comment: This result has been called to ALONDRA PAGAN by Eddie López on 02 17 2024 at 1226, and has been read back. Mean Cell Volume 86.3 82.9 - 93.1 fL [facility] Mean Cell Hemoglobin 29.7 27.5 - 32.1 pg [facility] Mean Cell Hemoglobin Concentration 34.4 32.0 - 35.7 g/dL [facility] Platelet 118(L) 145 - 357 x10(3)/mc L [facility] RDW Standard Deviation 40.2 36.0 - 45.0 fL [facility] RDW coefficient of variation 12.8 11.4 - 13.8 % [facility] Mean Platelet Volume 9.5 7.6 - 12.9 fL [facility] NRBC% auto 0.0 % [facility] NRBC Absolute 0.000 0.000 - 0.000 x10(3)/mc L [facility] Blood 02/17/2024 12:1 0 PM EDT 02/17/2024 12:19 PM EDT Narrative Resulting Agency Comment Spec In Lab Tara York MD HEMATOLOGY ORDERABLE S [facility] [place] [address] * (ABNORMAL) BLOOD GAS 2 ARTERIAL (02/17/2024 11:43 AM EDT) pH, Arterial 7.38 7.35 - 7.45 [facility] PCO2, Arterial 40 35 - 45 mmHg [facility] PO2, Arterial 304(H) 85 - 104 mmHg [facility] Bicarbonate, Arterial 23.2 20.0 - 26.0 mmol/L [facility] Base Excess, Arterial -1.9 -3.0 - 3.0 mmol/L [facility] Hgb Blood Gas 11.1(L) 13.7 - 16.5 g/dL [facility] Oxyhemoglobin, Arterial 98.6(H) 94.0 - 97.0 % [facility] Carboxyhemoglob in, Arterial 0.3 % [facility] Comment: Nonsmokers: 0.5-1.5% COHB Smokers: Variable, but usually less than 10% Toxic: 20-30% COHB Lethal: Greater than 60% COHB Methemoglobin, Arterial 0.3 <=1.5 % [facility] Na Whole Blood 133(L) 135 - 145 mmol/L [facility] K Whole Blood 6.2(Critic al) 3.5 - 5.0 mmol/L [facility] Comment: Noted by director of instrumental music. Please note: Patients with WBC >100,000 may have falsely elevated Potassium levels. Contact the Clinical Chemistry Laboratory if there are any questions. ICa Whole Blood 0.97(L) 1.15 - 1.33 mmol/L [facility] Comment: Note: ??Total bilirubin higher than 20 mg/dL may lead to falsely low ionized calcium. CL Whole Blood 104 98 - 107 mmol/L [facility] Gluc Whole Bld 128 65 - 199 mg/dL [facility] Comment:Diabetes: >=200 mg/d L plus symptoms. Lactate WB 1.1 0.5 - 2.2 mmol/L [facility] Blood 02/17/2024 11:4 3 AM EDT 02/17/2024 11:43 AM EDT Hayder Graham MD POINT OF CARE TEST ORDERABLES [facility] [place] [address] * (ABNORMAL) BLOOD GAS 2 ARTERIAL (02/17/2024 11:08 AM EDT) pH, Arterial 7.38 7.35 - 7.45 [facility] PCO2, Arterial 38 35 - 45 mmHg [facility] PO2, Arterial 334(H) 85 - 104 mmHg [facility] Bicarbonate, Arterial 22.0 20.0 - 26.0 mmol/L [facility] Base Excess, Arterial -3.2(L) -3.0 - 3.0 mmol/L [facility] Hgb Blood Gas 10.8(L) 13.7 - 16.5 g/dL [facility] Oxyhemoglobin, Arterial 98.7(H) 94.0 - 97.0 % [facility] Carboxyhemoglob in, Arterial 0.3 % [facility] Comment: Nonsmokers: 0.5-1.5% COHB Smokers: Variable, but usually less than 10% Toxic: 20-30% COHB Lethal: Greater than 60% COHB Methemoglobin, Arterial 0.3 <=1.5 % [facility] Na Whole Blood 131(L) 135 - 145 mmol/L [facility] K Whole Blood 6.4(Critic al) 3.5 - 5.0 mmol/L [facility] Comment: Noted by director of instrumental music. Please note: Patients with WBC >100,000 may have falsely elevated Potassium levels. Contact the Clinical Chemistry Laboratory if there are any questions. ICa Whole Blood 0.98(L) 1.15 - 1.33 mmol/L [facility] Comment: Note: ??Total bilirubin higher than 20 mg/dL may lead to falsely low ionized calcium. CL Whole Blood 104 98 - 107 mmol/L [facility] Gluc Whole Bld 127 65 - 199 mg/dL [facility] Comment:Diabetes: >=200 mg/d L plus symptoms. Lactate WB 1.0 0.5 - 2.2 mmol/L [facility] Blood 02/17/2024 11:0 8 AM EDT 02/17/2024 11:08 AM EDT Hayder Graham MD POINT OF CARE TEST ORDERABLES Performing Organization Address [facility]/ZIP Co de Phone Number [facility] [place] [address] * (ABNORMAL) Hemoglobin and Hematocrit, blood (02/17/2024 11:04 AM EDT) Pathologist [facility] Hemoglobin 9.6(L) 13.7 - 16.5 g/dL [facility] [...] MD HEMATOLOGY ORDERABL ES Performing Organization Address City/[facility]/ZIP Co de Phone Number [facility] [place] [address] * (ABNORMAL) Platelet count (02/17/2024 11:04 AM EDT) Pathologist [facility] Platelet 106(L) 145 - 357 x10(3)/mc L [facility] Immature Plt % 1.6 0.0 - 7.4 % [facility] Comment: Limitation of the Immature Platelet Fraction (IPF)-May be less reliable when the platelet count is less than [id number]/uL due to statistical imprecision. The IPF value [...] in a decreased state of production. References: [employer] The Clinical Value of the Immature Platelet Fraction (IPF) in Cell Recovery Document Number [id number] 03/2011 [employer] The Role of the Immature Platelet Fraction (IPF) in the Differential Diagnosis of Thrombocytopenia, Document [id number] V002/15/14 P014 Blood 02/17/2024 11:0 4 AM EDT 02/17/2024 11:12 AM EDT Narrative Resulting Agency Comment Spec In Lab Hayder Graham MD HEMATOLOGY ORDERABL ES Performing Organization Address City/State/[facility] Co de Phone Number [facility] [place] [address] * (ABNORMAL) Fibrinogen (02/17/2024 11:04 AM EDT) Fibrinogen 149(L) 200 - 393 mg/dL [facility] Lab Hayder Graham MD HEMATOLOGY ORDERABL ES [facility] [place] [address] * (ABNORMAL) BLOOD GAS 2 ARTERIAL (02/17/2024 10:41 AM EDT) pH, Arterial 7.37 7.35 - 7.45 [facility] PCO2, Arterial 44 35 - 45 mmHg [facility] PO2, Arterial 335(H) 85 - 104 mmHg [facility] Bicarbonate, Arterial 24.9 20.0 - 26.0 mmol/L [facility] Base Excess, Arterial -0.4 -3.0 - 3.0 mmol/L [facility] Hgb Blood Gas 11.5(L) 13.7 - 16.5 g/dL [facility] Oxyhemoglobin, Arterial 98.9(H) 94.0 - 97.0 % [facility] Carboxyhemoglob in, Arterial 0.1 % [facility] Comment: Nonsmokers: 0.5-1.5% COHB Smokers: Variable, but usually less than 10% Toxic: 20-30% COHB Lethal: Greater than 60% COHB Methemoglobin, Arterial 0.3 <=1.5 % [facility] Na Whole Blood 132(L) 135 - 145 mmol/L [facility] K Whole Blood 5.9(H) 3.5 - 5.0 mmol/L [facility] Comment: Please note: Patients with WBC >100,000 may have falsely elevated Potassium levels. Contact the Clinical Chemistry Laboratory if there are any questions. ICa Whole Blood 1.02(L) 1.15 - 1.33 mmol/L [facility] Comment: Note: ??Total bilirubin higher than 20 mg/dL may lead to falsely low ionized calcium. CL Whole Blood 104 98 - 107 mmol/L [facility] Gluc Whole Bld 129 65 - 199 mg/dL [facility] Comment:Diabetes: >=200 mg/d L plus symptoms. Lactate WB 1.1 0.5 - 2.2 mmol/L [facility] Blood 02/17/2024 10:4 1 AM EDT 02/17/2024 10:41 AM EDT Hayder Graham MD POINT OF CARE TEST ORDERABLES [facility] [place] [address] * (ABNORMAL) BLOOD GAS 2 ARTERIAL (02/17/2024 10:06 AM EDT) pH, Arterial 7.38 7.35 - 7.45 [facility] PCO2, Arterial 42 35 - 45 mmHg [facility] PO2, Arterial 329(H) 85 - 104 mmHg [facility] Bicarbonate, Arterial 24.7 20.0 - 26.0 mmol/L [facility] Base Excess, Arterial -0.3 -3.0 - 3.0 mmol/L [facility] Hgb Blood Gas 11.0(L) 13.7 - 16.5 g/dL [facility] Oxyhemoglobin, Arterial 99.0(H) 94.0 - 97.0 % [facility] Carboxyhemoglob in, Arterial 0.3 % [facility] Comment: Nonsmokers: 0.5-1.5% COHB Smokers: Variable, but usually less than 10% Toxic: 20-30% COHB Lethal: Greater than 60% COHB Methemoglobin, Arterial 0.3 <=1.5 % [facility] Na Whole Blood 132(L) 135 - 145 mmol/L [facility] K Whole Blood 6.0(H) 3.5 - 5.0 mmol/L [facility] Comment: Please note: Patients with WBC >100,000 may have falsely elevated Potassium levels. Contact the Clinical Chemistry Laboratory if there are any questions. ICa Whole Blood 0.97(L) 1.15 - 1.33 mmol/L [facility] Comment: Note: ??Total bilirubin higher than 20 mg/dL may lead to falsely low ionized calcium. CL Whole Blood 102 98 - 107 mmol/L [facility] Gluc Whole Bld 123 65 - 199 mg/dL [facility] Comment:Diabetes: >=200 mg/d L plus symptoms. Lactate WB 1.1 0.5 - 2.2 mmol/L [facility] Blood 02/17/2024 10:0 6 AM EDT 02/17/2024 10:06 AM EDT Hayder Graham MD POINT OF CARE TEST ORDERABLES [facility] [place] [address] * Surgical Pathology Report (02/17/2024 10:01 AM EDT) Final Diagnosis [id number] ? Location: [facility]; [facility]; The signing pathologist has (i) examined the relevant preparation(s) for the specimen(s) and (ii) rendered or confirmed the diagnosis(es). . ?Surgical Pathology DIAGNOSIS Aortic valve leaflets, excision: Valve leaflets with myxoid degeneration, nodular fibrosis and dystrophic calcifications. Electronically signed by: ?Lindsay FERNANDEZ, Livier Gonzalez Verified: ??02/24/2024 13:49 ??Pathologist Performed at: ??-[facility] [place]. [place], [place] [address] Graves Registration Specialist: Job Brewer MD, FCAP, ??CLIA Certificate: [id number] SPECIMEN(S) SUBMITTED A - Aortic Valve Leaflets, [...] Sections Processing Blocks submitted for decalcification: A1. Selvage Machine Operator sections in 1 cassette labeled A1. ??ajw 02/24/2024 1:49 PM EDT [facility] AORTIC STRUCTURE / Unknown 02/17/2024 10:01 AM EDT 02/17/2024 10:01 AM EDT Hayder Graham MD PATHOLOGY/CYTOLOGY ORDERABLES Performing Organization Address City/[facility]/ZIP Co de Phone Number [facility] [place] [address] * Specimen to Pathology (02/17/2024 10:01 AM EDT) AP Specimen 02/17/2024 10:0 1 AM EDT 02/17/2024 10:01 AM EDT Narrative [facility] - 02/17/2024 10:01 AM EDT Specimen requisition ordered. ??Separate Pathology report to follow Hayder Graham MD PATHOLOGY/CYTOLOGY ORDERABLES Performing Organization Address City/[facility]/ZIP Co de Phone Number [facility] [place] [address] * (ABNORMAL) BLOOD GAS 2 ARTERIAL (02/17/2024 9:35 AM EDT) pH, Arterial 7.33(L) 7.35 - 7.45 [facility] PCO2, Arterial 35 35 - 45 mmHg [facility] PO2, Arterial 318(H) 85 - 104 mmHg [facility] Bicarbonate, Arterial 17.9(L) 20.0 - 26.0 mmol/L [facility] Base Excess, Arterial -8.0(L) -3.0 - 3.0 mmol/L [facility] Hgb Blood Gas 11.0(L) 13.7 - 16.5 g/dL [facility] Oxyhemoglobin, Arterial 98.8(H) 94.0 - 97.0 % [facility] Carboxyhemoglob in, Arterial 0.3 % [facility] Comment: Nonsmokers: 0.5-1.5% COHB Smokers: Variable, but usually less than 10% Toxic: 20-30% COHB Lethal: Greater than 60% COHB Methemoglobin, Arterial 0.3 <=1.5 % [facility] Na Whole Blood 131(L) 135 - 145 mmol/L [facility] K Whole Blood 5.8(H) 3.5 - 5.0 mmol/L [facility] Comment: Please note: Patients with WBC >100,000 may have falsely elevated Potassium levels. Contact the Clinical Chemistry Laboratory if there are any questions. ICa Whole Blood 0.98(L) 1.15 - 1.33 mmol/L [facility] Comment: Note: ??Total bilirubin higher than 20 mg/dL may lead to falsely low ionized calcium. CL Whole Blood 101 98 - 107 mmol/L [facility] Gluc Whole Bld 122 65 - 199 mg/dL [facility] Comment:Diabetes: >=200 mg/d L plus symptoms. Lactate WB 0.8 0.5 - 2.2 mmol/L [facility] Blood 02/17/2024 9:35 AM EDT 02/17/2024 9:35 AM EDT Hayder Graham MD POINT OF CARE TEST ORDERABLES [facility] [place] [address] * (ABNORMAL) BLOOD GAS 2 VENOUS (02/17/2024 9:34 AM EDT) pH, Venous 7.22(Criti marquez) 7.32 - 7.42 [facility] Comment:Noted by director of instrumental music. PCO2, Venous 43 41 - 51 mmHg [facility] Comment:Noted by director of instrumental music. PO2, Venous 57(H) 25 - 40 mmHg [facility] Comment:Noted by director of instrumental music. Bicarbonate, Venous 17.1 mmol/L [facility] Comment:Noted by director of instrumental music. Base Excess, Venous -10.6 mmol/L [facility] Comment:Noted by director of instrumental music. Hgb Blood Gas 11.2(L) 13.7 - 16.5 g/dL [facility] Comment:Noted by director of instrumental music. Oxyhemoglobin, Venous 86.5 % [facility] Comment:Noted by director of instrumental music. Carboxyhemoglob in, Venous 0.3 % [facility] Comment: Noted by director of instrumental music. Nonsmokers: 0.5-1.5% COHB Smokers: Variable, but usually less than 10% Toxic: 20-30% COHB Lethal: Greater than 60% COHB Methemoglobin, Venous 0.0 <=1.5 % [facility] Comment:Noted by director of instrumental music. Na Whole Blood 156(H) 135 - 145 mmol/L [facility] Comment:Noted by director of instrumental music. K Whole Blood 5.5(H) 3.5 - 5.0 mmol/L [facility] Comment: Noted by director of instrumental music. Please note: Patients with WBC >100,000 may have falsely elevated Potassium levels. Contact the Clinical Chemistry Laboratory if there are any questions. ICa Whole Blood 1.03(L) 1.15 - 1.33 mmol/L [facility] Comment: Noted by director of instrumental music. Note: ??Total bilirubin higher than 20 mg/dL may lead to falsely low ionized calcium. CL Whole Blood 100 98 - 107 mmol/L [facility] Comment:Noted by director of instrumental music. Gluc Whole Bld 132 65 - 199 mg/dL [facility] Comment: Noted by director of instrumental music. Diabetes: >=200 mg/dL plus symptoms Lactate WB 1.0 0.5 - 2.2 mmol/L [facility] Comment:Noted by director of instrumental music. Blood Gas Source Venous [facility] Blood 02/17/2024 9:34 AM EDT 02/17/2024 9:34 AM EDT Hayder Graham MD POINT OF CARE TEST ORDERABLES [facility] [place] [address] * (ABNORMAL) BLOOD GAS 2 ARTERIAL (02/17/2024 8:07 AM EDT) pH, Arterial 7.43 7.35 - 7.45 [facility] PCO2, Arterial 34(L) 35 - 45 mmHg [facility] PO2, Arterial 581(H) 85 - 104 mmHg [facility] Bicarbonate, Arterial 21.7 20.0 - 26.0 mmol/L [facility] Base Excess, Arterial -2.6 -3.0 - 3.0 mmol/L [facility] Hgb Blood Gas 14.5 13.7 - 16.5 g/dL [facility] Oxyhemoglobin, Arterial 99.0(H) 94.0 - 97.0 % [facility] Carboxyhemoglob in, Arterial 0.4 % [facility] Comment: Nonsmokers: 0.5-1.5% COHB Smokers: Variable, but usually less than 10% Toxic: 20-30% COHB Lethal: Greater than 60% COHB Methemoglobin, Arterial 0.3 <=1.5 % [facility] Na Whole Blood 139 135 - 145 mmol/L [facility] K Whole Blood 4.0 3.5 - 5.0 mmol/L [facility] Comment: Please note: Patients with WBC >100,000 may have falsely elevated Potassium levels. Contact the Clinical Chemistry Laboratory if there are any questions. ICa Whole Blood 1.09(L) 1.15 - 1.33 mmol/L [facility] Comment: Note: ??Total bilirubin higher than 20 mg/dL may lead to falsely low ionized calcium. CL Whole Blood 106 98 - 107 mmol/L [facility] Gluc Whole Bld 100 65 - 199 mg/dL [facility] Comment:Diabetes: >=200 mg/d L plus symptoms. Lactate WB 1.3 0.5 - 2.2 mmol/L [facility] Blood 02/17/2024 8:07 AM EDT 02/17/2024 8:07 AM EDT Hayder Graham MD POINT OF CARE TEST ORDERABLES Performing Organization Address [facility] Co de Phone Number [facility] [place] [address] * POCT Glucose (02/17/2024 6:38 AM EDT) Glucose, POC 98 65 - 199 mg/dL [facility] Comment: Supplemental ranges: <140 mg/dL before meals <180 mg/dL all other times of the day Blood 02/17/2024 6:38 AM EDT 02/17/2024 6:38 AM EDT Hayder Graham MD POINT OF CARE TEST ORDERABLES Performing Organization Address [facility] Co de Phone Number [facility] [place] [address] * Transesophageal Echo/OR (02/17/2024 6:33 AM EDT) [...] [facility] [...] Vincent RN)1000 (Stopped - Provider: Ingrid Menjivar, COBLY)1001 (New Bag - Provider: Ingrid Menjivar, RN)1201 [...] Routine documented in this encounter Care Teams Boat Rigger Relationship Specialty Start Date End Date Aparna Jordan APRN PCP - General Family Medicine 10/21/23 05/26/24 documented as of this encounter
--- OUTSIDE RECORDS SUMMARY | 2024-06-15 08:28 | XMS_ITS | Encounter Summary ---
Author Organization [facility] [place] [address] Care Team Providers Care Picker Name Role Phone Vanessa Christian APRN Primary Care Provider [phone] Encounter Details Date Type Department Care Team [...] 3:00 PM EST Office Visit Cardiology at [address] [place] [phone] Neftali Ernandez MD [facility] [place] [address] documented as of this encounter Visit Diagnoses Not on filedocumented in this encounter Care Teams Picker Relationship Specialty Start Date End Date Vanessa Christian APRN PCP - General Family Medicine 10/21/23 05/26/24 documented as of this encounter
--- OUTSIDE RECORDS SUMMARY | 2024-06-15 08:28 | XMS_ITS | Encounter Summary ---
Author Organization [facility] [place] [address] Care Team Providers Care Leave Coordinator Name Role Phone Vanessa Christian Lane DOTSON Primary Care Provider [phone] Reason for Referral * Diagnostic Test (Routine) - Closed Specialty Diagnoses / Procedures Referred By Contac t Referred To Contact Radiology Diagnoses Nonrheumatic aortic valve stenosis Procedures CT Chest wo Contrast (Generic) Louisa Cho PA [facility] DR CARDIOTHORACIC [place] [address] [facility] [place] [address] Referral ID Status Reason Start Date Expiration Date V isits Requested Visits Authorized [id number] Closed Specialty Service Requested 01/10/2024 07/11/2025 1 1 Reason for Visit * Diagnostic Test (Routine) - Closed Specialty Diagnoses / Procedures Referred By Contac t Referred To Contact Radiology Diagnoses Nonrheumatic aortic valve stenosis Procedures CT Chest wo Contrast (Generic) Louisa Cho PA [facility] CARDIOTH[place] [address] [facility] [place] [address] Referral ID Status Reason Start Date Expiration Date V isits Requested Visits Authorized [id number] Closed Specialty Service Requested 01/10/2024 07/11/2025 1 1 Encounter Details Date Type Department Care Team (Latest Contact Info) Description 02/03/2024 7:36 AM EDT - 02/03/2024 8:05 AM EDT Hospital Encounter CT Scan at [facility] [place] [address] Zak Farmer MD [facility] CARDIOTH[place] [address] Nonrheumatic aortic valve stenosis Discharge Disposition: Home Social History Tobacco Use Types Packs/Day Years Used Date Smoking Tobacco: Former Cigarettes Smokeless Tobacco: Never Comments:Quit 15 + years ago Alcohol Use Standard Drinks/Week Comments Yes 0 (1 standard drink = 0.6 oz pur e alcohol) rare [facility] Inpatient Questions Answer Date Recorded Does [...] PM EST Office Visit Cardiology at [address] [place] [address] Neftali Ernandez MD [facility] [place] [address] documented as of this encounter Procedures Procedure Name Priority Date/Time Associated Diagnosis Comments CT CHEST WO CONTRAST (GENERIC) Routine 02/03/2024 7:44 AM EDT Nonrheumatic aortic valve stenosis documented in this encounter Results * CT Chest wo Contrast (Generic) (02/03/2024 7:44 AM EDT) [employer] WORKSTATION ID [id number] DH RAD Anatomical Region Laterality Modality Chest [...] nodule along the minor fissure (series 302 [id number]) and a 8 mm right lower lobe [...] disorders documented in this encounter Care Teams Leave Coordinator Relationship Specialty Start Date End Date Vanessa Christian APRN PCP - General Family Medicine 10/21/23 05/26/24 documented as of this encounter
--- OUTSIDE RECORDS SUMMARY | 2024-06-15 08:28 | XMS_ITS | Encounter Summary ---
Author Organization [facility] Address [facility] [place] [address] Care Team Providers Care Zipper Trimmer Name Role Phone Vanessa Christian MAURI Primary Care Provider [phone] Encounter Details Date Type Department Care Team (Late st Contact Info) Description 02/14/2024 [place] [phone] Zak Farmer MD [facility] [place] [address] Coronary artery disease, unspecified vessel or lesion type, unspecified whether angina present, unspecified whether [place] or transplanted heart (Primary Dx) Social History [...] PM EST Office Visit Cardiology at [address] [place] [phone] Neftali Ernandez MD [facility] CARDIOLOGY [place], [place] [id number] documented as of this encounter Results * EKG 12 Lead (03/12/2024 2:35 PM EDT) Ventricular rate 59 BPM MUSE SYSTEM Atrial Rate 59 BPM MUSE SYSTEM P-R Interval 190 ms MUSE SYSTEM QRS Duration 92 ms MUSE SYSTEM Q-T Interval 406 ms MUSE SYSTEM QTC Calculated (Bezet) 401 ms MUSE SYSTEM Calculated P Golva -12 degrees MUSE SYSTEM Calculated R Golva 24 degrees MUSE SYSTEM Calculated T Golva 74 degrees MUSE SYSTEM INTERPRETATION Sinus bradycardia T wave abnormality, consider anterior ischemia Abnormal ECG When compared with ECG of 17-FEB-2024 13:24, [place] interval has decreased T wave inversion now evident in Anterior leads Confirmed by Paul Guzman ([id number]) on 03/15/2024 8:36:23 AM MUSE SYSTEM 03/12/2024 2:35 PM EDT 03/15/2024 8:36 AM EDT Zak Farmer MD ECG ORDERABLES MUSE SYSTEM * XR Chest PA & Lateral (Generic) (03/12/2024 1:42 PM EDT) WORKSTATION ID [id number] RAD Anatomical Region Laterality Modality Chest N/A [...] questions please contact the health intensive care anaesthetist that requested your imaging first. ? Electronically signed by: Augie Sanchez MD, [facility] ([phone]), at 03/13/2024 8:28 AM Narrative 03/13/2024 8:28 AM EDT EXAMINATION: XR CHEST PA AND LATERAL (GENERIC) CLINICAL HISTORY: s/p cabg eval effusions I25.10, Atherosclerotic heart disease of [place] coronary artery without angina pectoris TECHNIQUE: PA [...] eval effusions I25.10, Atherosclerotic heart disease of [place] coronary artery withoutangina pectoris TECHNIQUE: PA and [...] have questions please contactthe health intensive care anaesthetist that requested your imaging first. Electronically signed by: Augie Sanchez MD, [facility]([phone]), at 03/13/2024 8:28 AM Zak Farmer MD IMG DX ORDERABLES documented in this encounter Visit Diagnoses Diagnosis Coronary artery disease, unspecified vessel or lesion type, unspecified whether angina present, unspecified whether [place] or transplanted heart- Primary Coronary artery disease, unspecified vessel or lesion type, unspecified whether angina present, unspecified whether [place] or transplanted heart documented in this encounter Care Teams Zipper Trimmer Relationship Specialty Start Date End Date Vanessa Christian APRN PCP - General Family Medicine 10/21/23 05/26/24 documented as of this encounter
--- OUTSIDE RECORDS SUMMARY | 2024-06-15 08:28 | XMS_ITS | Encounter Summary ---
Author Organization [facility] [place] [address] Care Team Providers Care Supervisor Slitting And Shipping Name Role Phone Victor M Lafleur MD Primary Care Provider [phone] Encounter Details Date Type Department Care Team (Late st Contact Info) Description 09/26/2023 Abstract Cardiology at [address] [address] Karen Billy, RN Nonrheumatic aortic [...] PM EST Office Visit Cardiology at [address] [place] [address] Neftali Ernandez MD [facility] [place] [address] documented as of this encounter Visit Diagnoses Diagnosis Nonrheumatic aortic valve stenosis Aortic valve disorders Nevus of face Benign neoplasm of skin of other and unspecified parts of face documented in this encounter Care Teams Supervisor Slitting And Shipping Relationship Specialty Start Date End Date Victor M Lafleur MD PCP - General 10/02/13 10/20/23 documented as of this encounter
--- OUTSIDE RECORDS SUMMARY | 2024-06-17 08:10 | XMS_ITS | Encounter Summary ---
Author Organization [facility] Address [facility] [place] [address] Care Team Providers Care Front Line Supervisor Name Role Phone Vanessa Christian Lane DOTSON Primary Care Provider [phone] Reason for Visit * Reason Comments Coronary Artery Disease Aortic Stenosis Encounter Details Date Type Department Care Team (Latest Contact Info) Description 05/27/2024 11:00 AM EDT Office Visit Cardiology at [address] [place] [phone] Neftali Ernandez MD [facility] [place] [address] ASCVD (arteriosclerotic cardiovascular disease); Nonrheumatic aortic valve stenosis Social History Tobacco Use Types Packs/Day Years Used Date Smoking Tobacco: Former Cigarettes Smokeless Tobacco: Never Comments:Quit 15 + years ago Alcohol Use Standard Drinks/Week Comments Yes 0 (1 standard drink = 0.6 oz pur e alcohol) rare [facility] Utilities Answer Date Recorded In the past 12 months has e [email or web address], gas, oil, or water [employer] threatened to shut off services in your [...] prophylaxis required as directed against expected bacterial perm of at-risk procedures. * Assessment & Plan [...] PM EST Office Visit Cardiology at [address] [address] Neftali Ernandez MD [facility] [place] [address] documented as of this encounter Visit Diagnoses Diagnosis ASCVD (arteriosclerotic cardiovascular disease) Unspecified cardiovascular disease Nonrheumatic aortic valve stenosis Aortic valve disorders documented in this encounter Care Teams Front Line Supervisor Relationship Specialty Start Date End Date Vanessa Christian APRN [address] [place] [address] PCP - General Family Medicine 05/27/24 documented as of this encounter
--- OUTSIDE RECORDS SUMMARY | 2024-06-17 08:10 | XMS_ITS | Encounter Summary ---
Author Organization [facility] Address [facility] [place] [address] Care Team Providers Care Portal Architect Name Role Phone Vanessa Christian MAURI Primary Care Provider [phone] Encounter Details Date Type Department Care Team (Latest Contact Info) Description 05/20/2024 Travel Social History Tobacco Use Types Packs/Day Years Used Date Smoking Tobacco: Former Cigarettes Smokeless Tobacco: Never Comments:Quit 15 + years ago Alcohol Use Standard Drinks/Week Comments Yes 0 (1 standard drink = 0.6 oz pur e alcohol) rare [facility] Utilities Answer Date Recorded In the [...] PM EST Office Visit Cardiology at [address] [phone] Neftali Ernandez MD [facility] [place] [address] documented as of this encounter Visit Diagnoses Not on filedocumented in this encounter Care Teams Portal Architect Relationship Specialty Start Date End Date Vanessa Christian APRN PCP - General Family Medicine 10/21/23 05/26/24 documented as of this encounter
--- OUTSIDE RECORDS SUMMARY | 2024-06-17 08:10 | XMS_ITS | Clinical Summary ---
Author Organization [facility] Address [facility] [place] [address] Care Team Providers Care Used Equipment Sales Representative Name Role Phone Vanessa Christian Lane ODTSON Primary Care Provider [phone] Allergies No known active allergies Medications Medication [...] meantime will refer to [facility]HT at [facility] for further evaluation. Logistics and preliminary review of TONY were reviewed with patient. - Refer to SHT Hypertension 08/14/2023 Resolved Problems Problem Noted Date Diagnosed Date Resolved Date Nevus of face 09/26/2023 05/27/2024 Overview (09/26/2023): Right rastafarian Chest pressure 08/14/2023 10/21/2023 SILVA (dyspnea on exertion) 08/14/2023 HLD (hyperlipidemia) 08/14/2023 024 Encounters Date Type Department Care Team Description 05/27/2024 11:00 AM EDT Office Visit Cardiology at [address] [place] [address] Neftali Ernandez MD ASCVD (arteriosclerotic cardiovascular disease); Nonrheumatic aortic valve stenosis 05/27/2024 Travel 05/20/2024 Travel from Last 3 Months Social History Tobacco Use Types Packs/Day Years Used Date Smoking Tobacco: Former Cigarettes Smokeless Tobacco: Never Comments:Quit 15 + years ago Alcohol Use Standard Drinks/Week Comments Yes 0 (1 standard drink = 0.6 oz pur e alcohol) rare [facility] Utilities Answer Date Recorded In the [...] PM EST Office Visit Cardiology at [address] [place] [address] Neftali Ernandez MD [facility] [place] [address] Health Maintenance Due Date Last [...] series) 06/07/2024 Medical Devices Implanted Type Area Web Specialist Device Identifier Shelf Expiration Date Model / Serial / Lot Cable,Cut,Edg ,Blnt,Ss,3tpr ([id number]) - [id number] Implanted:Qty : 1 on 02/17/2024 by Zak Farmer MD at [facility] IMPLANTS Midline: Chest [employer] - [id number] 09/02/2028 [id number] / / [id number] Valve Coronary Aortic 23mm Tissue Trnscath Biopros Inspiris ([id number]) (Autoreq) - [id number] Implanted:Qty : 1 on 02/17/2024 by Zak Farmer MD at [facility] IMPLANTS Heart [employer] - TSAI LI 09/15/2027 [id number] 23MM / [id number] / Procedures Procedure Name Priority Date/Time Associated [...] (Bezet) 367 ms MUSE SYSTEM Calculated P Center 12 degrees MUSE SYSTEM Calculated R Center 27 degrees MUSE SYSTEM Calculated T Center 62 degrees MUSE SYSTEM INTERPRETATION Sinus bradycardia with 1st degree A-V block Otherwise normal ECG When compared with ECG of 12-MAR-2024 14:35, T wave inversion no longer evident in Anterior leads Confirmed by MD Ernandez Daniel ([id number]) on 06/01/2024 8:36:17 AM MUSE SYSTEM 05/27/2024 [...] Status decision made by: Patient Care Teams Used Equipment Sales Representative Relationship Specialty Start Date End Date Vanessa Christian, SECURITY CONTROL ROOM OFFICER [address] [place] [address] PCP - General Family Medicine 05/27/24
--- OUTSIDE RECORDS SUMMARY | 2024-06-17 08:10 | XMS_ITS | Encounter Summary ---
Author Organization [facility] Address [facility] [place] [address] Care Team Providers Care Acid Loader Name Role Phone Vanessa Christian MAURI Primary Care Provider [phone] Encounter Details Date Type Department Care Team (Latest Contact Info) Description 03/12/2024 1:30 PM EDT - 03/12/2024 11:59 PM EDT Hospital Encounter XRay at [address] [place] [address] Coronary artery disease, unspecified vessel or lesion type, unspecified whether angina present, unspecified whether [place] or transplanted heart Discharge Disposition: Home Social History Tobacco Use Types Packs/Day Years Used Date Smoking Tobacco: Former Cigarettes Smokeless Tobacco: Never Comments:Quit 15 + years ago Alcohol Use Standard Drinks/Week Comments Yes 0 (1 standard drink = 0.6 oz pur e alcohol) rare [facility] Utilities Answer Date Recorded In the past 12 months has e [employer], gas, oil, or water [employer] threatened to shut off services in your [...] PM EST Office Visit Cardiology at [address] [place] [address] Nfetali Ernandez MD [facility] [place] [address] documented as of this encounter Procedures Procedure Name Priority Date/Time Associated Diagnosis Comments XR CHEST PA AND LATERAL Routine 03/12/2024 1:42 PM EDT Coronary artery disease, unspecified vessel or lesion type, unspecified whether angina present, unspecified whether [place] or transplanted heart documented in this encounter Results * XR Chest PA & Lateral (Generic) (03/12/2024 1:42 PM EDT) WORKSTATION ID [id number] RAD Anatomical Region Laterality Modality Chest N/A [...] signed by: Augie Sanchez MD, [facility] ([phone]), at 03/13/2024 8:28 AM Narrative 03/13/2024 8:28 AM EDT EXAMINATION: XR CHEST PA AND LATERAL (GENERIC) CLINICAL HISTORY: s/p cabg eval effusions I25.10, Atherosclerotic heart disease of [place] coronary artery without angina pectoris TECHNIQUE: PA [...] eval effusions I25.10, Atherosclerotic heart disease of [place] coronary artery withoutangina pectoris TECHNIQUE: PA and [...] signed by: Augie Sanchez MD, [facility]([phone]), at 03/13/2024 8:28 AM Zak Farmer MD IMG DX ORDERABLES documented in this encounter Visit Diagnoses Diagnosis Coronary artery disease, unspecified vessel or lesion type, unspecified whether angina present, unspecified whether [place] or transplanted heart documented in this encounter Care Teams Acid Loader Relationship Specialty Start Date End Date Vanessa Christian, MAURI PCP - General Family Medicine 10/21/23 05/26/24 documented as of this encounter
--- OUTSIDE RECORDS SUMMARY | 2024-06-17 08:10 | XMS_ITS | Encounter Summary ---
Author Organization [facility] Address [facility] [place] [address] Care Team Providers Care Director Statistical Programming Name Role Phone Vanessa Christian MAURI Primary Care Provider [phone] Encounter Details Date Type Department Care Team (Latest Contact Info) Description 05/27/2024 Travel Social History Tobacco Use Types Packs/Day Years Used Date Smoking Tobacco: Former Cigarettes Smokeless Tobacco: Never Comments:Quit 15 + years ago Alcohol Use Standard Drinks/Week Comments Yes 0 (1 standard drink = 0.6 oz pur e alcohol) rare [facility] Utilities Answer Date Recorded In [...] PM EST Office Visit Cardiology at [address] [address] Neftali Ernandez MD [facility] [place] [address] documented as of this encounter Visit Diagnoses Not on filedocumented in this encounter Care Teams Director Statistical Programming Relationship Specialty Start Date End Date Vanessa Christian APRN [address] [place] [address] PCP - General Family Medicine 05/27/24 documented as of this encounter
--- OUTSIDE RECORDS SUMMARY | 2024-06-17 08:10 | XMS_ITS | Encounter Summary ---
Author Organization [facility] Address [facility] [place] [address] Care Team Providers Care Painter Aircraft Name Role Phone Vanessa Christian MAURI Primary Care Provider [phone] Encounter Details Date Type Department Care Team (Latest Contact Info) Description 03/12/2024 Travel Social History Tobacco Use Types Packs/Day Years Used Date Smoking Tobacco: Former Cigarettes Smokeless Tobacco: Never Comments:Quit 15 + years ago Alcohol Use Standard Drinks/Week Comments Yes 0 (1 standard drink = 0.6 oz pur e alcohol) rare [facility] Utilities Answer Date Recorded In the [...] 3:00 PM EST Office Visit Cardiology at [address] [phone] Neftali Ernandez MD [facility] [place] [address] documented as of this encounter Visit Diagnoses Not on filedocumented in this encounter Care Teams Painter Aircraft Relationship Specialty Start Date End Date Vanessa Christian APRN PCP - General Family Medicine 10/21/23 05/26/24 documented as of this encounter
--- OUTSIDE RECORDS SUMMARY | 2024-06-17 08:10 | XMS_ITS | Encounter Summary ---
Author Organization [facility] Address [facility] [place] [address] Care Team Providers Care Automotive Refinisher Name Role Phone Gino Vanessa Lane DOTSON Primary Care Provider [phone] Encounter Details Date Type Department Care Team (Late st Contact Info) Description 02/24/2024 Orders [address] [facility] [place] [phone] Trudi Lester APRN [facility] [place] [address] Social History Tobacco Use Types Packs/Day Years Used Date Smoking Tobacco: Former Cigarettes Smokeless Tobacco: Never Comments:Quit 15 + years ago Alcohol Use Standard Drinks/Week Comments Yes 0 (1 standard drink = 0.6 oz pur e alcohol) rare [facility] Utilities Answer Date Recorded In the past 12 months has e [employer], gas, oil, or water [employer] threatened to shut off services in your [...] PM EST Office Visit Cardiology at [address] [place] [address] Neftali Ernandez MD [facility] [place] [address] documented as of this encounter Visit Diagnoses Not on filedocumented in this encounter Care Teams Automotive Refinisher Relationship Specialty Start Date End Date Vanessa Christian APRN PCP - General Family Medicine 10/21/23 05/26/24 documented as of this encounter
--- OUTSIDE RECORDS SUMMARY | 2024-06-17 08:10 | XMS_ITS | Clinical Summary ---
Author Organization [facility] Address [address] [place] [address] Care Team Providers Care Importer Exporter Name Role Phone Vanessa Christian NP Primary Care Provider [phone] Social History Tobacco Use Types Packs/Day Years [...] COVID-19 Vaccine (2022-24 season) 2023 Care Teams Importer Exporter Relationship Specialty Start Date End Date Vanessa Christian NP [address] [place] [phone] PCP - General Family Medicine - Primary Care 10/07/23
--- OUTSIDE RECORDS SUMMARY | 2024-06-17 08:10 | XMS_ITS | Encounter Summary ---
Author Organization [facility] Address [facility] [place] [address] Care Team Providers Care Public Relations Account Executive Name Role Phone Vanessa Christian MAURI Primary Care Provider [phone] Encounter Details Date Type Department Care Team (Late st Contact Info) Description 03/12/2024 2:40 PM EDT Office Visit [place] [phone] Zak Farmer MD [facility] [place] [address] Coronary artery disease, unspecified vessel or lesion type, unspecified whether angina present, unspecified whether [place] or transplanted heart Social History Tobacco Use Types Packs/Day Years Used Date Smoking Tobacco: Former Cigarettes Smokeless Tobacco: Never Comments:Quit 15 + years ago Alcohol Use Standard Drinks/Week Comments Yes 0 (1 standard drink = 0.6 oz pur e alcohol) rare [facility] Utilities Answer Date Recorded In the past 12 months has e [employer], gas, oil, or water [employer] threatened to shut off services in your [...] 2:40 PM EDT To: MD Vanessa Coles, MUSEUM PREPARATOR Re; Karlos Santa ( 1960) We had [...] office. Best personal regards, Zak Farmer MD [phone] documented in this encounter Plan of Treatment Upcoming Encounters Date Type Department Care Team (Late st Contact Info) Description 11/30/2024 3:00 PM EST Office Visit Cardiology at [address] [place] [address] Neftali Ernandez MD [facility] [place] [address] documented as of this encounter Procedures Procedure Name Priority Date/Time Associated Diagnosis Comments EKG 12-LEAD Routine 03/12/2024 2:35 PM EDT Coronary artery disease, unspecified vessel or lesion type, unspecified whether angina present, unspecified whether [place] or transplanted heart documented in this encounter Results * EKG 12 Lead (03/12/2024 2:35 PM EDT) Ventricular rate 59 BPM MUSE SYSTEM Atrial Rate 59 BPM MUSE SYSTEM P-R Interval 190 ms MUSE SYSTEM QRS Duration 92 ms MUSE SYSTEM Q-T Interval 406 ms MUSE SYSTEM QTC Calculated (Bezet) 401 ms MUSE SYSTEM Calculated P [place] -12 degrees MUSE SYSTEM Calculated R [place] 24 degrees MUSE SYSTEM Calculated T [place] 74 degrees MUSE SYSTEM INTERPRETATION Sinus bradycardia T wave abnormality, consider anterior ischemia Abnormal ECG When compared with ECG of 17-FEB-2024 13:24, [place] interval has decreased T wave inversion now evident in Anterior leads Confirmed by Paul Guzman ([id number]) on 03/15/2024 8:36:23 AM MUSE SYSTEM 03/12/2024 2:35 PM EDT 03/15/2024 8:36 AM EDT Zak Farmer MD ECG ORDERABLES MUSE SYSTEM documented in this encounter Visit Diagnoses Diagnosis Coronary artery disease, unspecified vessel or lesion type, unspecified whether angina present, unspecified whether [place] or transplanted heart documented in this encounter Care Teams Public Relations Account Executive Relationship Specialty Start Date End Date Vanessa Christian APRN PCP - General Family Medicine 10/21/23 05/26/24 documented as of this encounter
--- OUTSIDE RECORDS SUMMARY | 2024-06-17 08:10 | XMS_ITS | Encounter Summary ---
Author Organization [facility] Address [address] [place] [address] Care Team Providers Care Wildlife Technician Name Role Phone Vanessa Christian Lane MONCADA Primary Care Provider [phone] Encounter Details Date Type Department Care Team (Late st Contact Info) Description 10/24/2023 Lab Requisition [facility] Pathology & Laboratory Medicine - [address] [address] Oscar Nichole MD [address] [place] [phone] Factitial dermatitis Social History Tobacco Use Types [...] if applicable. 10/28/2023 11:24 EST [facility] Final Diagnosis A. SKIN OF SIKH, LEFT, SHAVE BIOPSY: - Seborrheic keratosis, pigmented. 10/28/2023 11:24 EST [facility] Attestation By the signature below, the attending physician certifies that they have 1) personally conducted a gross and/or microscopic examination of the described specimen(s), and/or personally interpreted the results of laboratory testing of the described specimen(s), and 2) personally rendered or confirmed the above diagnosis. 10/28/2023 11:24 [facility] at [address]4 Microscopic Description The stratum corneum is thickened by compact and basketweave orthokeratosis with formation of horn pseudocysts. The epidermis is acanthotic with formation of broad and anastomosing trabeculae. The trabeculae are composed of basaloid keratinocytes with round uniform nuclei. The keratinocytes have a variable amount of melanin pigment. 10/28/2023 11:24 [facility] Clinical History Pigmented 2 cm patch; clinical diagnosis code: L98.1 10/28/2023 11:24 [facility] Gross Description A. Received [...] A3. Nora Anderson 10/25/2023 8:47 10/28/2023 11:24 [facility] Performing Lab [facility] 10/28/2023 11:24 [facility] Scanned Images 10/28/2023 11:24 [facility] Tissue SPECIMEN FROM SKIN / Unknown 10/24/2023 14:30 EST 10/24/2023 22:04 EST Oscar Nichole MD PATHOLOGY ORDERABLES [facility] [address] [place] [address] documented in this encounter Visit Diagnoses Diagnosis Factitial dermatitis Dermatitis factitia (artefacta) documented in this encounter Care Teams Wildlife Technician Relationship Specialty Start Date End Date Vanessa Christian NP [address] [place] [address] PCP - General Family Medicine - Primary Care 10/07/23 documented as of this encounter
--- OUTSIDE RECORDS SUMMARY | 2024-06-17 08:10 | XMS_ITS | Referral Summary ---
Author Organization [facility] Address [address] [place] [address] Care Team Providers Care Cabinet Installer Name Role Phone Filidayna Vanessa Sherman NP Primary Care Provider [phone] Social History Tobacco Use Types Packs/Day Years Used Date Smoking Tobacco: Never Assessed Sex and Gender Information Value Date Recorded Sex Assigned at Not on file Gender Identity Not on file Sexual Orientation Not on file Plan of Treatment Not on file Care Teams Cabinet Installer Relationship Specialty Start Date End Date Vanessa Christian NP [address] [place] [address] PCP - General Family Medicine - Primary Care 10/07/23
--- OUTSIDE RECORDS SUMMARY | 2024-06-17 08:11 | XMS_ITS | Encounter Summary ---
[place] [address] Care Team Providers Care Restaurant Expeditor Name Role Phone Aparna Jordan MAURI Primary Care Provider [phone] Reason for Referral * Diagnostic Test (Routine) - New Request Specialty Diagnoses / Procedures Referred By Contac t Referred To Contact Cardiology Diagnoses S/P AVR Procedures Echocardiogram Transthoracic Neftali Menon PA [facility] CARDI[facility]ACIC [place] [address] [facility] [place] [address] Referral ID Status Reason Start Date Expiration Date Visits Requested Visits Authorized [id number] New Request Specialty Service Requested 02/24/2024 02/23/2025 1 1 * Consultation (Routine) - Authorized Specialty Diagnoses / Procedures Referred By Contac t Referred To Contact Cardiology Diagnoses S/P AVR Hayder Graham MD [facility] CARDIOTHORACIC [place] [address] Cardiac Rehab, [facility] [address] [place] [address] [place] [address] Referral ID Status Reason Start Date Expiration Date Visits Requested Visits Authorized [id number] Authorized Consult, Test & Treat 02/24/2024 08/22/2024 36 36 * Home Health Care (Routine) - Authorized Specialty Diagnoses / Procedures Referred By Sixto mendoza Referred To Contact Diagnoses S/P AVR Hayder Graham MD [facility] C[place]AC[facility] [place] [address] Referral ID Status Reason Start Date Expiration Date Visits Requested Visits Authorized [id number] Authorized Consult, Test & Treat 02/24/2024 08/22/2024 [...] (WRVU 7.93) Hayder Graham MD [facility] CARDIOTH[facility]ACIC [place] [address] [facility] Referral ID Status Reason Start Date Expiration Date Visits Re quested Visits Authorized [id number] 1 1 Encounter Details Date Type Department Care Team (Latest Contact Info) Description 02/17/2024 5:43 AM EDT - 02/24/2024 11:23 AM EDT Hospital Encounter Heart and Vascular Unit Level 4 [place] [address] Hayder Graham MD [facility] CARDIOTHORACIC [place] [address] S/P AVR (Primary Dx); Aortic valve stenosis, etiology of cardiac valve disease unspecified Discharge Disposition: Home with VNA Social History Tobacco Use Types Packs/Day Years Used Date Smoking Tobacco: Former Cigarettes Smokeless Tobacco: Never Comments:Quit 15 + years ago Alcohol Use Standard Drinks/Week Comments Yes 0 (1 standard drink = 0.6 oz pur e alcohol) rare [facility] Utilities Answer Date Recorded [...] Patient Age: 63 y.o. Birthdate: 1960 Language: Tongan Race: White Ethnicity: Not nor Admit Date: 02/17/2024 Discharge Date: 02/24/24 Attending Physician: Hayder Graham MD Follow-up Recommendations for Providers: Please continue routine management of cardiovascular risk factors including blood pressure, lipids,glucose, etc. Please note any changes to medications. Patient to follow up with PCP, Aparna Jordan APRN, in 1-2 weeks. Patient to follow up with Construction Skills Teacher, Neftali Ernandez MD , in 2 weeks. Patient to follow up with Cardiac Surgeon, Dr. Hayder Graham, with a chest x-ray, EKG, and Echo. 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 He has glaucoma. He used to Elo7 until about 15 years ago. He has undergone prior herniorrhaphy. 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 Major Procedures/Operations: 02/17/24 s/p avr/cabgx3 CABG x 3 JOSE->LAD SVG->dRCA SVG->OM1 EVH from LLE AVR with a 23 mm Inspiris Bioprosthesis Hospital Course: Karlos Garcia was admitted to [facility] on 02/17/2024 via the Same Day Program. [...] Hayder Graham and/or the Cardiac Surgery Physician Composition Mixer Team may be reached at . Antibiotic [...] Please refer to the card with the [place] [employer] Guidelines for more information. You [...] Dr. Hayder Graham. You may use a [place] Track or treadmill but avoid any pulling [...] should resume a low fat, low cholesterol, [place] [employer] Diet. Driving: No driving until [...] while being managed by your PCP and/or Construction Skills Teacher. For future medication refills, please refer to your PCP and/or Construction Skills Teacher after your discharge from our service. Thank you REMOVE CHEST TUBE SUTURES ON OR AFTER 03/02/24 Home oxygen therapy: N/A Follow up appointments: You should follow up with your PCP, Aparna Jordan APRN, in 1-2 weeks. Our office will schedule an appointment with your Construction Skills Teacher, Neftali Ernandez MD , in 2 weeks. You have an appointment with your Cardiac Surgeon, Dr. Hayder Graham, 4 weeks with a chest x-ray, EKG, and Echo before your appointment. Cardiac Rehabilitation: Karlos Garcia was seen regarding participation in the outpatient Phase 2Cardiac Rehabilitation at [facility]. The patient agrees to a referral to this program. The referral will be sent at discharge and the patient should be contacted by the Program within 1- 2 weeks from discharge. Future Appointments and Orders Future Orders Complete By Expires Echocardiogram Transthoracic [95823 CPT(R)] 03/26/2024 09/25/2024 Process Instructions: Scheduling Instructions: Questions: Where will study be performed?: [facility] Does the patient have Congenital Heart Disease?: Does patient require sedation?: Sedation rationale: XR Chest PA & Lateral (Generic) [09411 71448 Custom] 03/26/2024 09/25/2024 Process Instructions: Scheduling Instructions: Questions: Portable exam?: Reason for exam and clinical history: s/p avr/cabg Clinical information / jerome questions for radiologist: Stat read required?: Date of injury if applicable: Requested Time: Where will study be performed?: [facility] Radiology Referral to Cardiac Rehab [[id number] Custom] As directed Process Instructions: If no progress note charted, please enter Clinical details in comments. Scheduling Instructions: Questions: My question or request is: s/p AVR/CABG. Cardiac rehab at [facility]. Referral to Home Health [REF34 Custom] As directed Process Instructions: If no progress note charted, please enter Clinical details in comments. Scheduling Instructions: Comments: Please evaluate Karlos Garcia for admission to Home Health. [address] Phone Number: Date of : 1960 Inpatient DOCUMENTATION FOR VNA SERVICES (INCLUDING THOSE PATIENTS WITH MEDICARE COVERAGE REQUIRING HOME VNA SERVICES AND/OR HOSPICE SERVICES) PATIENT'S LOCATION: Karlos Garcia [address] [phone] Explosive Ordnance Handler's Name: self/family In discussion with the attending physician, it is certified that this patient is under their care and that they, or a Nurse Practitioner, or Physician Composition Mixer who is working directly with them, hada [...] for services as follows: HOME HEALTH AGENCY: [facility] [address] [place] [address] RN orders: Cardiopulmonary assessment, incisional assessment, assess [...] issues please call the Cardiology Office at [phone] FOR MEDICARE ONLY: (please delete this section [...] APRN [address] / [place] [address] . All VNA agencies which cover the area of patient's residence have been reviewed, either verbally or in writing, and patient/family have chosen the home health care agency noted. Questions: Disciplines Requested: Nursing Physical Therapy Arrangements for VNA/home care: As above. Signed: NEFTALI MNEON PA-C [facility] Section of Cardiac Surgery [facility] [address] FAX [phone] Date: 02/24/2024 CC: Aparna Jordan, MAURI Jordan, Aparna Sherman APRN [address] [place] [address] documented in this encounter Discharge Instructions * [...] Hayder Graham and/or the Cardiac Surgery Physician Composition Mixer Team may be reached at . Antibiotic [...] Please refer to the card with the [place] Heart [employer] Guidelines for more information. You [...] Dr. Hayder Graham. You may use a [place]ad Track or treadmill but avoid any pulling [...] should resume a low fat, low cholesterol, [place] [employer] Diet. Driving: No driving until [...] while being managed by your PCP and/or Construction Skills Teacher. For future medication refills, please refer to your PCP and/or Construction Skills Teacher after your discharge from our service. Thank you REMOVE CHEST TUBE SUTURES ON OR AFTER 03/02/24 Home oxygen therapy: N/A Follow up appointments: You should follow up with your PCP, Aparna Jordan APRN, in 1-2 weeks. Our office will schedule an appointment with your Construction Skills Teacher, Neftali Ernandez MD , in 2 weeks. You have an appointment with your Cardiac Surgeon, Dr. Hayder Graham, 4 weeks with a chest x-ray, EKG, and Echo before your appointment. Cardiac Rehabilitation: Karlos Garcia was seen regarding participation in the outpatient Phase 2Cardiac Rehabilitation at [facility]. The patient agrees to a referral to [...] 0600 and on the weekends please page [phone]. * Eric Barahona PA - 02/23/2024 9:27 [...] 0600 and on the weekends please page [phone]. * Tiffanie Owens - 02/22/2024 2:48 PM [...] Pt reports his dtr is coming from [place] to stay upon d/c for 10 days. 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 He works Precautions/Special Considerations: [...] LRAD and supervision Time IN / OUT: 7083-6460 Total Time: 30 minutes; TEFx2 Tiffanei Owens Pager: [phone] Physical Therapy Inpatient Rehabilitation Department * Romeo [...] 0600 and on the weekends please page [phone]. * Kelley Hinson, CLINIC OFFICE MANAGER - 02/21/2024 10:15 AM EDT Physical [...] Pt reports his dtr is coming from [place] to stay upon d/c for 10 days. 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 * Kelley Hinson PTA - 02/20/2024 3:32 PM EDT 02/20/24 6840 Evaluation & Treatment Document Type contact Total Minutes, Physical Therapy 0 Comment, Session Not Performed Checked in w/ pt this PM for ongoing PT services, pt politely declined, stating he had been dealing w/ nausea all day, made plan to see him tomorrow morning, will f/u at that time Kelley Hinson PTA Pager: [phone] Physical Therapy Inpatient Rehab Department * Louisa [...] 0600 and on the weekends please page [phone]. * Maris Benavides, PT - 02/19/2024 11:22 [...] Pt reports his dtr is coming from [place] to stay upon d/c for 10 days. 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 Precautions/Special Considerations: [...] outlined inthis evaluation. MARIS BENAVIDES, PT Pager: [phone] Physical Therapy Inpatient Rehabilitation Department Time IN / OUT: 1109-8182 Total Time: 38 (eval) minutes; * Antonio [...] 0600 and on the weekends please page [phone]. * Minnie Begum PA - 02/18/2024 8:25 [...] 0600 and on the weekends please page [phone]. * Kim Ha RCP - 02/17/2024 2:25 [...] plan since last visit. Hayder Graham MD [phone] Source Note - Hayder Graham MD - [...] insufficiency. He has glaucoma. He used to Elo7 until about 15 years ago. He has [...] given written informed consent. Hayder Graham MD [phone] * Hayder Graham MD - 02/17/2024 7:00 [...] given written informed consent. Hayder Graham MD [phone] documented in this encounter Miscellaneous Notes * [...] information for follow-up Home Health & Hospice, [address] [place] [address] Cardiac Rehab, [address] [place] [address] Transportation: family or friend will provide Functional status prior to admission: Independent Home Environment: Others in the home: alone. Current Living Arrangements: home/apartment/condo. Accessibility Concerns:a few steps to enter 1 floor home. Current Functional Ability: Assistive Person and Equipment DME used at home: none DME Needed at Discharge: N/A Patient is insured through: Primary Insurance: [facility] Payor: [facility] / Plan: [facility] PPO / Product Type: *No [...] pain managed with scheduled Tylenol. Worked with [employer]. Ambulated in the roque multiple times during [...] anticipated Patient is insured through: Primary Insurance: [facility] Payor: [employer] / Plan: [facility] PPO / Product Type: *No Product type* / Secondary Insurance: N/A Last Physical Therapy Recommendation: home with home health (Str coming to stay for a week or two upon d/c) with to be determined (owns rolling walker, shower seat) Plan for discharge is: Home w/ Services Outpatient Agency/Support Group Needs: Homecare agency Home Health Services: Physical Therapy, Registered Nurse Agency Referrals: [facility]. [address] [place] [id number] Transportation: family or friend will provide Barriers to discharge: Discharge planning Plan going forward: Service Care Management will continue to follow and assist with discharge planning and coordination of care as indicated. Anticipated Date of Discharge: 02/22/2024 Rhett Bell RN RN/CM - Cellphone: [phone] Pager: [phone] Covering Service RN/CM * Plan of Care [...] Yang RN - 02/19/2024 10:44 AM EDT [facility] Karlos Garcia was seen today regarding participation in the outpatient Phase 2 Cardiac Rehabilitation at [facility]. 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 (Only good for 180 days) Any patient receiving care in [place] must abide by [place] law. The hierarchy [...] (i) The agent with financial power of sports attorney or a conservator appointed in accordance [...] steady place to sleep or slept in [facility] (including now)?: No In the past 12 months has the [employer], gas, oil, or water [employer] threatened to shut off services in your [...] Home Address confirmed as: [address] [facility] [address] Physical address: [address] [facility], [address] Social & Family Supports: All names listed [...] Information: none noted Health/Prescription Coverage: Primary Insurance: [facility] Payor: [facility] / Plan: [facility] PPO / Product Type: *No Product type* / Secondary Insurance: N/A ; Prescription Coverage: Yes Preferred Pharmacy: [id number] AT [address] [address] Status: Patient is a : No Primary Care Provider confirmed: Aparna Jordan, BOUFFANT CURTAIN MACHINE TENDER [phone] Patient/Caregiver Goals of Treatment: dc to home Potential Needs for Transition of Care: home health care Agency Referrals: I have met with the patient to: discuss discharge planning needs. provide the [facility], Office of Care Management letter from the [facility] pertaining to rehab referrals. provide a letter describing our affiliations within the [facility] and educate about their right to choose where referrals are sent. provide a list of Home Health Agencies / Durable Medical Equipment vendors which serve their preferred geographic area. provided patient with [facility] Star Quality Rating handout. They have requested referrals to: [facility] [address] [place] [address] Note routed to a Broomcorn Sorter who will communicate referrals to facilities and [...] daughter, Cielo, will be coming in from [place] on 02/18, to stay with him , [...] Reina [place] RN CM, BSN, CMGT- Ext [phone] * Plan of Care - Binta Trinidad [...] Operative Note Patient Name: Karlos Garcia : [id number] MR#: [id number] Case Date: 02/17/2024 Surgeon: Surgeon(s) and Role: * Hayder Graham MD - Primary * Neftali Menon PA - Physician Composition Mixer Preoperative diagnosis: CAD Postoperative diagnosis: CAD, intraoperative [...] mL Drains: Mediastinal and Left pleural Disposition: [facility] Condition: doing well without problems Attestation: Case Date: 02/17/2024 I performed this procedure without the involvement of a resident. HAYDER GRAHAM MD 02/17/2024 * Op Note - Hayder Graham MD - 02/17/2024 8:20 AM EDT [facility] Operative Note Patient Name: Karlos Garcia : [id number] MR#: [id number] Case Date: 02/17/2024 Surgeon: Surgeons and Role: * Hayder Graham MD - Primary * Neftali Menon PA - Physician Composition Mixer Preoperative diagnosis: CAD Postoperative diagnosis: CAD, intraoperative [...] mL Drains: Mediastinal and Left pleural Disposition: [facility] Procedure Description: The patient was brought to [...] PM EST Office Visit Cardiology at [address] [place] [address] Neftali Ernandez MD [facility] [place] [address] Scheduled Orders Name Type Priority Associated Diagnoses [...] Aortic Valve Open W Cardiopulmonary Bypass Homogrf/Stent (76822) Yes 02/17/2024 7:28 AM EDT CAD Cabg, Artery-Vein, Two (81301) Yes 02/17/2024 7:28 AM EDT CAD Cabg, Arterial, Single (38419) Yes 02/17/2024 7:28 AM EDT CAD Endoscopy W/Video-Asst Vein [place], Cabg (49818) Yes 02/17/2024 7:28 AM EDT CAD POCT [...] CHEMISTRY ORDERABLE S [facility] [place] [address] * (ABNORMAL) Basic Metabolic Panel (non-fasting) (02/23/2024 [...] MD CHEMISTRY ORDERABLES [facility] [place] [address] * Potassium (02/22/2024 4:30 AM EDT) Potassium [...] CHEMISTRY ORDERABLE S [facility] [place] [address] * (ABNORMAL) Basic Metabolic Panel (non-fasting) (02/21/2024 [...] 31 [facility] Comment:Add-on request. Samp le too [...] Carpio MD CHEMISTRY ORDERABLES Performing Organization Address City/[facility]/ZIP Co de Phone Number [facility] [place] [address] * Lactate, whole blood, send to lab ([facility] (02/21/2024 9:45 AM EDT) [facility] Lactate WB 2.0 0.5 - 2.2 mmol/L [facility] Blood 02/21/2024 9:45 AM EDT 02/21/2024 9:52 AM EDT Narrative Resulting Agency Comment Spec In Lab Hayder Graham MD CHEMISTRY ORDERABLE S Performing Organization Address City/[facility]/ZIP Co de Phone Number [facility] [place] [address] * (ABNORMAL) Hepatic Function Panel (02/21/2024 9:45 [...] MD CHEMISTRY ORDERABLE S Performing Organization Address City/[facility]/ZIP Co de Phone Number [facility] [place] [address] * Lipase (02/21/2024 9:45 AM EDT) Lipase 56 0 - 60 unit/L [facility] Blood 02/21/2024 9:45 AM EDT 02/21/2024 9:52 AM EDT Narrative Resulting Agency Comment Spec In Lab Hayder Graham MD CHEMISTRY ORDERABLE S Performing Organization Address [facility] Co de Phone Number [facility] [place] [address] * Amylase (02/21/2024 9:45 AM EDT) Amylase 69 28 - 100 unit/L [facility] Blood 02/21/2024 9:45 AM EDT 02/21/2024 9:52 AM EDT Narrative Resulting Agency Comment Spec In Lab Hayder Graham MD CHEMISTRY ORDERABLE S Performing Organization Address [facility] Co de Phone Number [facility] [place] [address] * Potassium (02/21/2024 3:08 AM EDT) Potassium [...] CHEMISTRY ORDERABLE S [facility] [place] [address] * XR Chest PA & Lateral (Generic) (02/20/2024 10:19 AM EDT) WORKSTATION ID [id number] RAD Anatomical Region Laterality Modality Chest N/A Digital Radiogra phy Impressions 02/20/2024 1:11 PM EDT Small pleural effusions. No pneumothorax Thank you for letting us participate in the care of this patient. ??If you are a health care provider and have any questions regarding this report, please contact the number below. ??For patients who have questions please contact the health managed care liaison that requested your imaging first. ? Electronically signed by: Rogerio Cruz MD, [facility] ??([phone]), at 02/20/2024 1:11 PM Narrative 02/20/2024 1:11 PM EDT EXAMINATION: XR CHEST PA AND LATERAL (GENERIC) CLINICAL HISTORY: s/p AVR/CABGx3 TECHNIQUE: PA and lateral views of the chest COMPARISON: 02/17/2024 FINDINGS: Support devices: Interval removal of O'Kean-Kaila catheter, endotracheal tube and mediastinal chest tubes The cardiac silhouette is stable status post median sternotomy, CABG and aortic valve replacement. There are small pleural effusions. No pneumothorax. Procedure Note Rogerio Cruz MD - 02/20/2024 EXAMINATION: XR CHEST PA AND LATERAL (GENERIC) CLINICAL HISTORY: s/p AVR/CABGx3 TECHNIQUE: PA and lateral views of the chest COMPARISON: 02/17/2024 FINDINGS: Support devices: Interval removal of O'Kean-Kaila catheter, endotracheal tubeand mediastinal chest tubes The [...] have questions please contactthe health managed care liaison that requested your imaging first. Hayder Graham MD IMG DX ORDERABLES * Scan, Peripheral Blood (02/20/2024 4:23 AM EDT) Pathologist [facility] Plat estimate Decreased [facility] RBC Morphology Normal [facility] Blood 02/20/2024 4:23 AM EDT 02/20/2024 4:42 AM EDT Narrative Resulting Agency Comment Spec In Lab Minnie FRENCH HEMATOLOGY CECILIO ALEMAN Performing Organization Address City/State/[facility] Co de Phone Number [facility] [place] [address] * (ABNORMAL) Differential, Automated (02/20/2024 4:23 AM EDT) [facility] Neutrophil % 81.7 % [facility] Neutrophil Absolute 10.37(H) 1.70 - 6.10 x10(3)/mc L [facility] Lymph % 7.4 % [facility] Lymphocytes Abs 0.9 0.9 - 3.2 x10(3)/mc L [facility] Monocyte % 9.7 % [facility] Monocyte Abs 1.2(H) 0.3 - 0.9 x10(3)/mc L [facility] Eos % 0.1 % [facility] Eosinophils Abs 0.0 0.0 - 0.4 x10(3)/[facility] Basophil % 0.2 % [facility] Baso Absolute 0.0 0.0 - 0.1 x10(3)/[facility] Immature Gran % 0.90 % [facility] Comment: Immature granulocytes(IG's)percentage and absolute count will include metamyelocytes, myelocytes, and promyelocytes. Blood smears from CBCs yielding IG's will be scanned manually for concordance. If this scan disagrees with the automated IG or if promyelocytes are noted, a manual differential will be performed. Immature Gran Absolute 0.12(H) 0.00 - 0.04 x10(3)/[facility] Blood 02/20/2024 4:23 AM EDT 02/20/2024 4:42 AM EDT Narrative Resulting Agency Comment Spec In Lab Minnie FRENCH HEMATOLOGY CECILIO ALEMAN [facility] [place] [address] * (ABNORMAL) Hemogram (02/20/2024 4:23 AM EDT) White Blood Cell 12.7(H) 4.0 - 9.5 x10(3)/[facility] LABORATORY Red Blood Cell 4.26(L) 4.58 - 5.54 x10(6)/[facility] LABORATORY Hemoglobin 12.3(L) 13.7 - [...] [facility] NRBC% auto 0.0 % [facility] NRBC Absolute 0.000 0.000 - 0.000 x10(3)/mc L [facility] Blood 02/20/2024 4:23 AM EDT 02/20/2024 4:42 AM EDT Narrative Resulting Agency Comment Spec In Lab Minnie FRENCH HEMATOLOGY CECILIO ALEMAN [facility] [place] [address] * (ABNORMAL) Basic Metabolic Panel (non-fasting) (02/20/2024 4:23 AM EDT) Glucose 113 65 - 199 mg/dL [facility] Comment:Diabetes: >=200 mg/d L plus symptoms Blood Urea Nitrogen 20 10 - 20 mg/dL [facility] Comment:result rechecked-KS Creatinine 0.71(L) 0.80 - 1.50 mg/dL [facility] [...] ORDERABLE S Performing Organization Address [facility] Co de Phone Number [facility] [place] [address] * Potassium (02/19/2024 3:57 AM EDT) [facility] Potassium 4.3 3.5 - 5.0 mmol/L M[facility] [...] ORDERABLE S Performing Organization Address [facility]/ZIP Co de Phone Number [facility] [place] [address] * POCT Glucose (02/18/2024 8:24 AM EDT) Glucose, POC 157 65 - 199 mg/dL [facility] Comment: Supplemental ranges: <140 mg/dL before meals <180 mg/dL all other times of the day Blood 02/18/2024 8:24 AM EDT 02/18/2024 8:24 AM EDT Hayder Graham MD POINT OF CARE TEST ORDERABLES Performing Organization Address City/[facility]/ZIP Co de Phone Number [facility] [place] [address] * Scan, Peripheral Blood (02/18/2024 1:40 AM EDT) [facility] Plat estimate Decreased [facility] RBC Morphology Normal [facility] Blood 02/18/2024 1:40 AM EDT 02/18/2024 1:56 AM EDT Narrative Resulting Agency Comment Spec In Lab Neftali FRENCH HEMATOLOGY ORDER OLE Performing Organization Address City/[facility]/ZIP Co de Phone Number [facility] [place] [address] * (ABNORMAL) Differential, Automated (02/18/2024 1:40 AM EDT) [facility] Neutrophil % 87.1 % [facility] Neutrophil Absolute 15.03(H) 1.70 - 6.10 x10(3)/mc L [facility] Lymph % 3.0 % [facility] Lymphocytes Abs 0.5(L) 0.9 - 3.2 x10(3)/mc L [facility] Monocyte % 9.1 % [facility] Monocyte Abs 1.6(H) 0.3 - 0.9 x10(3)/mc L [facility] Eos % 0.0 % [facility] Eosinophils Abs 0.0 0.0 - 0.4 x10(3)/mc L [facility] Basophil % 0.2 % [facility] Baso Absolute 0.0 0.0 [...] Absolute 0.10(H) 0.00 - 0.04 x10(3)/ L [facility] Blood 02/18/2024 1:40 AM EDT 02/18/2024 1:56 AM EDT Narrative Resulting Agency Comment Spec In Lab Neftali FRENCH HEMATOLOGY ORDER OLE [facility] [place] [address] * (ABNORMAL) Hemogram (02/18/2024 1:40 AM EDT) White Blood Cell 17.2(H) 4.0 - 9.5 x10(3)/ L [facility] [...] Standard Deviation 39.9 36.0 - 45.0 fL [facility] RDW coefficient of variation 13.2 11.4 - 13.8 % [facility] Mean Platelet Volume 9.9 7.6 - 12.9 fL [facility] NRBC% auto 0.0 % [facility] NRBC Absolute 0.000 0.000 - 0.000 x10(3)/mc L [facility] Blood 02/18/2024 1:40 AM EDT 02/18/2024 1:56 AM EDT Narrative Resulting Agency Comment Spec In Lab Neftali FRENCH HEMATOLOGY ORDER OLE [facility] [place] [address] * (ABNORMAL) Basic Metabolic Panel (non-fasting) (02/18/2024 [...] CHEMISTRY ORDERABLE S [facility] [place] [address] * (ABNORMAL) Troponin (02/18/2024 1:40 AM EDT) Troponin-T, High Sensitivity 342(H) <=22 ng/L [facility] [...] can be found in the [facility] Test Catalog Troponin - [facility] Test Catalog Reference: Fourth [place] Definition of Myocardial Infarction. Journal of the [place] [employer] 2018;72:1711-7156 Blood 02/18/2024 1:40 AM EDT 02/18/2024 1:56 AM EDT Narrative Resulting Agency Comment Spec In Lab Hayder Graham MD CHEMISTRY ORDERABLE S [facility] [place] [address] * POCT Glucose (02/17/2024 8:13 PM EDT) Glucose, POC 142 65 - 199 mg/dL [facility] Comment: Supplemental ranges: <140 mg/dL before meals <180 mg/dL all other times of the day Blood 02/17/2024 8:13 PM EDT 02/17/2024 8:13 PM EDT Hayder Graham MD POINT OF CARE TEST ORDERABLES Performing Organization Address [facility]/ZIP Co de Phone Number [facility] [place] [address] * POCT Glucose (02/17/2024 5:42 PM EDT) Glucose, POC 160 65 - 199 mg/dL [facility] Comment: Supplemental ranges: <140 mg/dL before meals <180 mg/dL all other times of the day Blood 02/17/2024 5:42 PM EDT 02/17/2024 5:42 PM EDT Hayder Graham MD POINT OF CARE TEST ORDERABLES Performing Organization Address City/[facility]/ZIP Co de Phone Number [facility] [place] [address] * Hemoglobin (02/17/2024 5:42 PM EDT) Hemoglobin 13.7 13.7 - 16.5 g/dL [facility] Blood 02/17/2024 5:42 PM EDT 02/17/2024 6:10 PM EDT Narrative Resulting Agency Comment Spec In Lab Hayder Graham MD HEMATOLOGY ORDERABL ES Performing Organization Address [facility] Co de Phone Number [facility] [place] [address] * Potassium (02/17/2024 5:42 PM EDT) Potassium [...] ORDERABLE S Performing Organization Address [facility] de Phone Number [facility] [place] [address] * (ABNORMAL) BLOOD GAS 2 ARTERIAL (02/17/2024 [...] [facility] FIO2 Art 40 % [facility] PF Ratio Art 195 [facility] Blood 02/17/2024 4:18 PM EDT 02/17/2024 4:18 PM EDT Hayder Graham MD POINT OF CARE TEST ORDERABLES Performing Organization Address City/State/[facility] Co de Phone Number [facility] [place] [address] * XR Chest One View (02/17/2024 1:44 PM EDT) WORKSTATION ID [id number] RAD Anatomical Region Laterality Modality Chest N/A Digital Radiogra phy Impressions 02/17/2024 2:12 PM EDT 1. ??No definite pleural fluid collection or pneumothorax. 2. ??Right IJ O'Kean-Kaila catheter tip terminates in a descending branch [...] questions please contact the health managed care liaison that requested your imaging first. ? Electronically signed by: Denzel Hankins MD, [facility] ??([phone]), at 02/17/2024 2:12 PM Narrative 02/17/2024 2:12 PM EDT EXAMINATION: XR CHEST ONE VIEW CLINICAL HISTORY: s/p avr/cabg eval effusions TECHNIQUE: 1 view of the chest COMPARISON: Chest x-ray 01/09/2024, chest CT 02/03/2024 FINDINGS: ET tube tip terminates 5.2 cm above the carlos. Right IJ O'Kean-Kaila catheter tip terminates in a descending branch [...] 5.2 cm above the carlos. Right IJ O'Kean-Ganzcatheter tip terminates in a descending branch of [...] fluid collection or pneumothorax. 2. Right IJ O'Kean-Kaila catheter tip terminates in a descending branch ofthe right pulmonary artery. Suggest catheter retraction. 3. Additional support lines and tubes as above. Thank you for letting us participate in the care of this patient. If youare a health care provider and have any questions regarding this report,please contact the number below. For patients who have questions please contactthe health managed care liaison that requested your imaging first. Electronically signed by: Denzel Hankins MD, [facility]([phone]), at 02/17/2024 2:12 PM Hayder Graham MD [...] [facility] FIO2 Art 100 % [facility] PF Ratio Art 320 [facility] Blood 02/17/2024 1:31 PM EDT 02/17/2024 1:31 PM EDT Hayder Graham MD POINT OF CARE TEST ORDERABLES Performing Organization Address City/State/[facility] Co de Phone Number [facility] [place] [address] * (ABNORMAL) Coox2 (02/17/2024 1:21 PM EDT) pO2, Coox 44 mmHg [facility] [...] CARE TEST ORDERABLES [facility] [place] [address] * (ABNORMAL) BLOOD GAS 2 ARTERIAL (02/17/2024 [...] OF CARE TEST ORDERABLES Performing Organization Address [facility] de Phone Number [facility] [place] [address] * (ABNORMAL) Fibrinogen (02/17/2024 12:10 PM EDT) [...] Resulting Agency Comment Spec In Lab Tara oYrk MD HEMATOLOGY ORDERABLE S Performing Organization Address [facility] Co de Phone Number [facility] [place] [address] * (ABNORMAL) Thrombin time (02/17/2024 12:10 PM [...] ORDERABLE S Performing Organization Address [facility] de Phone Number [facility] [place] [address] * APTT (02/17/2024 12:10 PM EDT) Partial [...] ORDERABLE S Performing Organization Address [facility] de Phone Number [facility] [place] [address] * (ABNORMAL) Prothrombin Time (02/17/2024 12:10 PM [...] HEMATOLOGY ORDERABLE S [facility] [place] [address] * (ABNORMAL) Hemogram (02/17/2024 12:10 PM EDT) [...] [facility] NRBC% auto 0.0 % [facility] NRBC Absolute 0.000 0.000 - 0.000 x10(3)/mc L [facility] Blood 02/17/2024 12:1 0 PM EDT 02/17/2024 12:19 PM EDT Narrative Resulting Agency Comment Spec In Lab Tara York MD HEMATOLOGY ORDERABLE S [facility] [address] [place] [address] * (ABNORMAL) BLOOD GAS 2 ARTERIAL (02/17/2024 [...] [facility] Comment: Noted by instrumental musician. Please note: Patients with WBC >100,000 may [...] CARE TEST ORDERABLES [facility] [place] [address] * (ABNORMAL) BLOOD GAS 2 ARTERIAL (02/17/2024 [...] [facility] Comment: Noted by instrumental musician. Please note: Patients with WBC >100,000 may [...] OF CARE TEST ORDERABLES Performing Organization Address City/[facility]/[place] [address] * (ABNORMAL) Hemoglobin and Hematocrit, blood (02/17/2024 [...] HEMATOLOGY ORDERABL ES [facility] [place] [address] * (ABNORMAL) Platelet count (02/17/2024 11:04 AM EDT) Platelet 106(L) 145 - 357 x10(3)/mc L [facility] Immature Plt % 1.6 0.0 - 7.4 % [facility] Comment: Limitation of the Immature Platelet Fraction (IPF)-May be less reliable when the platelet count is less than 08z202/uL due to statistical imprecision. The IPF value [...] in a decreased state of production. References: [employer] The Clinical Value of the Immature Platelet Fraction (IPF) in Cell Recovery Document Number [id number] 03/2011 [employer] The Role of the Immature Platelet Fraction (IPF) in the Differential Diagnosis of Thrombocytopenia, Document [id number] V002/15/14 P014 Blood 02/17/2024 11:0 4 AM EDT 02/17/2024 11:12 AM EDT Narrative Resulting Agency Comment Spec In Lab Hayder Graham MD HEMATOLOGY ORDERABL ES [facility] [place] [address] * (ABNORMAL) Fibrinogen (02/17/2024 11:04 AM EDT) Pathologist [facility] Fibrinogen 149(L) 200 - 393 mg/dL [facility] [...] HEMATOLOGY ORDERABL ES [facility] [place] [address] * (ABNORMAL) BLOOD GAS 2 ARTERIAL (02/17/2024 [...] [facility] Co de Phone Number [facility] [place] [address] * (ABNORMAL) BLOOD GAS 2 ARTERIAL (02/17/2024 [...] [facility] Co de Phone Number [facility] [place] [address] * Surgical Pathology Report (02/17/2024 10:01 AM EDT) Final Diagnosis [id number] ? Location: [facility]; [facility]; The signing pathologist has (i) examined the relevant preparation(s) for the specimen(s) and (ii) rendered or confirmed the diagnosis(es). . ?Surgical Pathology DIAGNOSIS Aortic valve leaflets, excision: Valve leaflets with myxoid degeneration, nodular fibrosis and dystrophic calcifications. Electronically signed by: ?Livier Montoya MD Verified: ??02/24/2024 13:49 ??Pathologist Performed at: ??-[facility] Dept. of [place]ology, [place] [address] Prover: Job Brewer MD, FCAP, ??CLIA Certificate: [id number] SPECIMEN(S) SUBMITTED A - Aortic Valve Leaflets, excision (Multiple) CLINICAL INFORMATION CAD SPECIMEN PROCESSING A - Labeled/Fixative: Aortic valve leaflets, fresh. Quantity/Size: Fragments, 2.7 x 2.5 x 0.7 cm. Tissue Description: Fragmented, semi-lunar valve with calcific debris. Number semi-lunar valve cusps identified: Two Average size of cusps: 2.2 x 1.5 x 0.6 cm Free edges: Focally calcified. ??Focally stiff Sinuses: Nodular rgoers-yellow calcifications Sections Processing Blocks submitted for decalcification: A1. Career Development Specialist sections in 1 cassette labeled A1. ??ajw 02/24/2024 1:49 PM EDT [facility] AORTIC STRUCTURE / Unknown 02/17/2024 10:01 AM EDT 02/17/2024 10:01 AM EDT Hayder Graham MD PATHOLOGY/CYTOLOGY ORDERABLES Performing Organization Address City/[facility]/ZIP Co de Phone Number [facility] [place] [address] * Specimen to Pathology (02/17/2024 10:01 AM EDT) AP Specimen 02/17/2024 10:0 1 AM EDT 02/17/2024 10:01 AM EDT Narrative [facility] - 02/17/2024 10:01 AM EDT Specimen requisition ordered. ??Separate Pathology report to follow Hayder Graham MD PATHOLOGY/CYTOLOGY ORDERABLES Performing Organization Address [facility]/ZIP Co de Phone Number [facility] [place] [address] * (ABNORMAL) BLOOD GAS 2 ARTERIAL (02/17/2024 [...] CARE TEST ORDERABLES [facility] [place] [address] * (ABNORMAL) BLOOD GAS 2 VENOUS (02/17/2024 9:34 AM EDT) pH, Venous 7.22(Criti marquez) 7.32 - 7.42 [facility] Comment:Noted by instrumental musician. PCO2, Venous 43 41 - 51 mmHg [facility] Comment:Noted by instrumental musician. PO2, Venous 57(H) 25 - 40 mmHg [facility] Comment:Noted by instrumental musician. Bicarbonate, Venous 17.1 mmol/L [facility] Comment:Noted by instrumental musician. Base Excess, Venous -10.6 mmol/L [facility] Comment:Noted by instrumental musician. Hgb Blood Gas 11.2(L) 13.7 - 16.5 g/dL [facility] Comment:Noted by instrumental musician. Oxyhemoglobin, Venous 86.5 % [facility] Comment:Noted by instrumental musician. Carboxyhemoglob in, Venous 0.3 % [facility] Comment: Noted by instrumental musician. Nonsmokers: 0.5-1.5% COHB Smokers: Variable, but usually less than 10% Toxic: 20-30% COHB Lethal: Greater than 60% COHB Methemoglobin, Venous 0.0 <=1.5 % [facility] Comment:Noted by instrumental musician. Na Whole Blood 156(H) 135 - 145 mmol/L [facility] Comment:Noted by instrumental musician. K Whole Blood 5.5(H) 3.5 - 5.0 mmol/L [facility] Comment: Noted by instrumental musician. Please note: Patients with WBC >100,000 may have falsely elevated Potassium levels. Contact the Clinical Chemistry Laboratory if there are any questions. ICa Whole Blood 1.03(L) 1.15 - 1.33 mmol/L [facility] Comment: Noted by instrumental musician. Note: ??Total bilirubin higher than 20 mg/dL may lead to falsely low ionized calcium. CL Whole Blood 100 98 - 107 mmol/L [facility] Comment:Noted by instrumental musician. Gluc Whole Bld 132 65 - 199 mg/dL [facility] Comment: Noted by instrumental musician. Diabetes: >=200 mg/dL plus symptoms Lactate WB 1.0 0.5 - 2.2 mmol/L [facility] Comment:Noted by instrumental musician. Blood Gas Source Venous [facility] Blood 02/17/2024 9:34 AM EDT 02/17/2024 9:34 AM EDT Hayder Graham MD POINT OF CARE TEST ORDERABLES [facility] [place] [address] * (ABNORMAL) BLOOD GAS 2 ARTERIAL (02/17/2024 [...] TEST ORDERABLES Performing Organization Address [facility] Co de Phone Number [facility] [place] [address] * POCT Glucose (02/17/2024 6:38 AM EDT) Glucose, POC 98 65 - 199 mg/dL [facility] Comment: Supplemental ranges: <140 mg/dL before meals <180 mg/dL all other times of the day Blood 02/17/2024 6:38 AM EDT 02/17/2024 6:38 AM EDT Hayder Graham MD POINT OF CARE TEST ORDERABLES Performing Organization Address [facility] Co de Phone Number [facility] [place] [address] * Transesophageal Echo/OR (02/17/2024 6:33 AM EDT) [...] transes[facility] and post-operative evaluation of cardiac function [...] 6 hours upon arrival to Unit. Give NV if unable to take PO, Routine Given [...] dose on Sat02/17/24 at 1400, Until Discontinued, [place] teeth and / or gums. Scan the CHG vial in the [employer] Q-Care Oral Care Kit from floor stock. Ventilator-associated pneumonia prophylaxis For use in ICU/Critical care locations ONLY. Obtain kit from Floor Stock location. Scan CHG vial in the [employer] [facility] Q-Care Oral Care Kit, Routine Given 02/17/2024 [...] at 50% of previous rate. Call house painting instructor if goal not achieved at maximum rate. [...] PHENYLephrine and/or vasopressin ineffective. Call pager # [phone] if initiated. Titrate to keep systolic blood [...] L/min/M2. Maximum volume 2 L. Call house painting instructor for additional fluid orders: pager #[phone]. Rate/Dose Verify 02/18/2024 8:00 AM EDT 1 mL/hr 1 mL/hr Rate/Dose Verify 02/18/2024 6:00 AM EDT 1 mL/hr 1 mL/hr Rate/Dose Verify 02/18/2024 4:00 AM EDT 1 mL/hr 1 mL/hr sodium chloride 0.9% infusion 10-30 mL/hr, Intravenous, DAILY PRN, Starting on Sat02/17/24 at 1307, Until Sat02/18/24 at 0835, Side port TKO rate, per [facility] nursing protocol. Rate/Dose Verify 02/17/2024 8:00 PM EDT 30 mL/hr 30 mL/hr Rate/Dose Verify 02/17/2024 6:00 PM EDT 30 mL/hr 30 mL/h r Rate/Dose Verify 02/17/2024 5:00 PM EDT 30 mL/hr 30 mL/h r sodium chloride 0.9% infusion 10-30 mL/hr, Intravenous, DAILY PRN, Starting on Sat02/17/24 at 1307, Until Sat02/18/24 at 0835, Side port TKO rate, per [facility] nrusing protocol. Rate/Dose Verify 02/18/2024 8:00 AM [...] Routine documented in this encounter Care Teams Restaurant Expeditor Relationship Specialty Start Date End Date Aparna Jordan APRN PCP - General Family Medicine 10/21/23 05/26/24 documented as of this encounter
--- OUTSIDE RECORDS SUMMARY | 2024-06-17 08:12 | XMS_ITS | Encounter Summary ---
Author Organization [facility] Address [facility] [place] [address] Care Team Providers Care Resaw Operator Name Role Phone Vanessa Christian MAURI Primary Care Provider [phone] Encounter Details Date Type Department Care Team (Latest Contact Info) Description 01/09/2024 3:02 PM EDT - 01/09/2024 11:59 PM EDT Hospital Encounter XRay at [address] [place] [address] Zak Farmer MD [facility] [place] [address] Nonrheumatic aortic valve stenosis Discharge Disposition: Home Social History Tobacco Use Types Packs/Day Years Used Date Smoking Tobacco: Former Cigarettes Smokeless Tobacco: Never Comments:Quit 15 + years ago Alcohol Use Standard Drinks/Week Comments Yes 0 (1 standard drink = 0.6 oz pur e alcohol) rare [facility] Inpatient Questions Answer Date Recorded Prevent [...] 3:00 PM EST Office Visit Cardiology at [address] [place] [address] Neftali Ernandez MD [facility] [place] [address] documented as of this encounter Procedures Procedure [...] questions please contact the health managed care nurse that requested your imaging first. ? Electronically signed by: Toby Dave MD, [facility] ([phone]), at 01/09/2024 3:11 PM Narrative 01/09/2024 3:11 [...] have questions please contactthe health managed care nurse that requested your imaging first. Electronically signed by: Toby Dave MD, [facility]([phone]), at 01/09/2024 3:11 PM Zak Farmer MD IMG DX ORDERABLES documented in this encounter Visit Diagnoses Diagnosis Nonrheumatic aortic valve stenosis Aortic valve disorders documented in this encounter Care Teams Resaw Operator Relationship Specialty Start Date End Date Vanessa Christian APRN PCP - General Family Medicine 10/21/23 05/26/24 documented as of this encounter
--- OUTSIDE RECORDS SUMMARY | 2024-06-17 08:12 | XMS_ITS | Encounter Summary ---
Author Organization [facility] [place] [address] Care Team Providers Care Pre K Teacher Name Role Phone Vanessa Christian APRN Primary Care Provider [phone] Encounter Details Date Type Department Care Team (Late st Contact Info) Description 10/21/2023 Abstract Cardiology at [address] [phone] Adam Mayes RN Social History Tobacco Use [...] PM EST Office Visit Cardiology at [address] [address] Neftali Ernandez MD [facility] [place] [address] documented as of this encounter Visit Diagnoses Not on filedocumented in this encounter Care Teams Pre K Teacher Relationship Specialty Start Date End Date Vanessa Christian APRN PCP - General Family Medicine 10/21/23 05/26/24 documented as of this encounter
--- OUTSIDE RECORDS SUMMARY | 2024-06-17 08:12 | XMS_ITS | Encounter Summary ---
Author Organization [facility] Address [facility] [place] [address] Care Team Providers Care Motion Study Engineer Name Role Phone Vanessa Christian APRN Primary Care Provider [phone] Encounter Details Date Type Department Care Team [...] PM EST Office Visit Cardiology at [address] [place] [address] Neftali Ernandez MD [facility] [place] [address] documented as of this encounter Visit Diagnoses Not on filedocumented in this encounter Care Teams Motion Study Engineer Relationship Specialty Start Date End Date Vanessa Christian APRN PCP - General Family Medicine 10/21/23 05/26/24 documented as of this encounter
--- OUTSIDE RECORDS SUMMARY | 2024-06-17 08:12 | XMS_ITS | Encounter Summary ---
Author Organization [facility]ly [facility] [place] [address] Care Team Providers Care Pot Pusher Name Role Phone Vanessa Christian MAURI Primary Care Provider [phone] Reason for Visit * Auth/Cert (Routine) Specialty [...] W RHC (WRVU 5.9) Rima Dickinson MD [facility] [place] [address] [facility] Referral ID Status Reason Start Date Expiration Date Visits Re quested Visits Authorized [id number] 1 1 Encounter Details Date Type Department Care Team (Latest Contact Info) Description 02/03/2024 8:06 AM EDT - 02/03/2024 2:54 PM EDT Hospital [place] [address] Rima Dickinson MD [facility] [place] [address] Screening for cardiovascular condition; Aortic valve stenosis, [...] lbs Follow-up Visits Follow up with your fountain brush assembler in 2-4 weeks Access Site 'Black and Blue' and tenderness is expected during the first week Call if you noted a mass (lump) greater than the size of a ellis Call Office with any Questions and if you have any of the following Clarence Lane M.D Interventional Courtesy Booth Cashier Logistics Administrator #: [phone] * Attachments The following attachments cannot be sent through Care Everywhere. * CAD (Coronary Artery Disease): General Info (Gabonese) * Coronary Angiogram: Post-op (Gabonese) documented in this encounter Medications at Time [...] Lane MD - 02/03/2024 11:48 AM EDT [facility] Interventional Cardiology Adult Pre-Procedure H&P Update: Cardiac Catheterization Karlos Anthony [id number] Chief Complaint: Aortic stenosis HPI: Mr. [...] attesting to this, which is inthe chart Claernce Lane MD Interventional Courtesy Booth Cashier 02/03/24 11:48 AM documented in this encounter Miscellaneous Notes * Brief Op Note - Clarence Lane MD - 02/03/2024 12:51 PM EDT Preliminary Cardiac Catheterization Procedure Note: Patient Name: Karlos Anthony : [id number] MR#: [id number] Case Date: 02/03/2024 Logistics Administrator: Surgeon(s) and Role: * Saira Lua MD [...] 3:00 PM EST Office Visit Cardiology at [address] [address] Neftali Ernandez MD [facility] [place] [address] Scheduled Orders Name Type Priority Associated Diagnoses [...] Other Narrative 02/12/2024 3:47 PM EDT ?[facility] ? Cardiac Catheterization/Intervention Report ? Patient Name: Patenaude, Karlos ? Procedure Date: 02/03/2024 ? A #: [id number] ? Primary Physician: Saira Lua ? Case #: [id number] ? File Name: [id number] ? Catheterization Order Number: [id number] ? [facility] ? Final Report [place], [place] ? Patient Name: ? Karlos Patenaude ? ID#: ?[id number] ? : ?1960 ? Procedure Date: ? [...] Note Saira Lua MD - 02/12/2024 [facility] Cardiac Catheterization/Intervention Report Patient Name: Karlos Anthony Procedure Date: 02/03/2024 A #: [id number] Primary Physician: Saira Lua Case #: [id number] File Name: [id number] Catheterization Order Number: [id number] [facility] FinalReport [place], [place] Patient Name: Karlos Anthony ID#:[id number] :1960 Procedure Date: February 03, 2024 Case [...] was designated as ASA Class III. The [facility] clinical frailty scale is 3: Managing Well. [...] (Bezet) 372 ms MUSE SYSTEM Calculated P [place] 59 degrees MUSE SYSTEM Calculated R [place] 34 degrees MUSE SYSTEM Calculated T [place] 63 degrees MUSE SYSTEM INTERPRETATION Sinus bradycardia [...] MD) documented in this encounter Care Teams Pot Pusher Relationship Specialty Start Date End Date Vanessa Christian APRN PCP - General Family Medicine 10/21/23 05/26/24 documented as of this encounter
--- OUTSIDE RECORDS SUMMARY | 2024-06-17 08:12 | XMS_ITS | Encounter Summary ---
Author Organization [facility] [place] [address] Care Team Providers Care Labor Contract Analyst Name Role Phone Vanessa Christian Lane DOTSON Primary Care Provider [phone] Reason for Referral * Diagnostic Test (Routine) - Closed Specialty Diagnoses / Procedures Referred By Contac t Referred To Contact Radiology Diagnoses Nonrheumatic aortic valve stenosis Procedures CT Chest wo Contrast (Generic) Louisa Cho PA [facility] DR [place]ARDIOTHOR[place] [address] [facility] [place] [address] Referral ID Status Reason Start Date Expiration Date V isits Requested Visits Authorized [id number] Closed Specialty Service Requested 01/10/2024 07/11/2025 1 1 Reason for Visit * Diagnostic Test (Routine) - Closed Specialty Diagnoses / Procedures Referred By Contac t Referred To Contact Radiology Diagnoses Nonrheumatic aortic valve stenosis Procedures CT Chest wo Contrast (Generic) Louisa Cho PA [facility] [place] [address] [facility] [place] [address] Referral ID Status Reason Start Date Expiration Date V isits Requested Visits Authorized [id number] Closed Specialty Service Requested 01/10/2024 07/11/2025 1 1 Encounter Details Date Type Department Care Team (Latest Contact Info) Description 02/03/2024 7:36 AM EDT - 02/03/2024 8:05 AM EDT Hospital Encounter CT Scan at [facility] [place] [address] Zak Farmer MD [facility] [place] [address] Nonrheumatic aortic valve stenosis Discharge Disposition: Home Social History Tobacco Use Types Packs/Day Years Used Date Smoking Tobacco: Former Cigarettes Smokeless Tobacco: Never Comments:Quit 15 + years ago Alcohol Use Standard Drinks/Week Comments Yes 0 (1 standard drink = 0.6 oz pur e alcohol) rare [facility] Inpatient Questions Answer Date Recorded Does Anyone [...] 3:00 PM EST Office Visit Cardiology at [address] [place] [address] Neftali Ernandez MD [facility] [place] [address] documented as of this encounter Procedures Procedure Name Priority Date/Time Associated Diagnosis Comments CT CHEST WO CONTRAST (GENERIC) Routine 02/03/2024 7:44 AM EDT Nonrheumatic aortic valve stenosis documented in this encounter Results * CT Chest wo Contrast (Generic) (02/03/2024 7:44 AM EDT) [employer] WORKSTATION ID [id number] DH RAD Anatomical Region Laterality Modality Chest [...] who have questions please contact the health pharmacy customer care specialist that requested your imaging first. [...] nodule along the minor fissure (series [id number] [id number]) and a 8 mm right lower lobe [...] patients who have questions please contactthe health pharmacy customer care specialist that requested your imaging first. Zak Farmer MD IMG CT ORDERABLES documented in this encounter Visit Diagnoses Diagnosis Nonrheumatic aortic valve stenosis Aortic valve disorders documented in this encounter Care Teams Labor Contract Analyst Relationship Specialty Start Date End Date Vanessa Christian APRN PCP - General Family Medicine 10/21/23 05/26/24 documented as of this encounter
--- OUTSIDE RECORDS SUMMARY | 2024-06-17 08:12 | XMS_ITS | Encounter Summary ---
Author Organization [facility] [place] [address] Care Team Providers Care Dental Detail Representative Name Role Phone Vanessa Christian APRN Primary Care Provider [phone] Encounter Details Date Type Department Care Team (Late st Contact Info) Description 10/21/2023 Abstract Cardiology at [address] [place] [phone] Adam Mayes RN Social History Tobacco Use [...] PM EST Office Visit Cardiology at [address] [place] [address] Neftali Ernandez MD [facility] [place] [address] documented as of this encounter Visit Diagnoses Not on filedocumented in this encounter Care Teams Dental Detail Representative Relationship Specialty Start Date End Date Vanessa Christian APRN PCP - General Family Medicine 10/21/23 05/26/24 documented as of this encounter
--- OUTSIDE RECORDS SUMMARY | 2024-06-17 08:12 | XMS_ITS | Encounter Summary ---
Author Organization [facility] [place] [address] Care Team Providers Care Smoke Tester Name Role Phone Vanessa Christian APRN [...] PM EST Office Visit Cardiology at [address] [place] [phone] Neftali Ernandez MD [facility] [place] [address] documented as of this encounter Visit Diagnoses Not on filedocumented in this encounter Care Teams Smoke Tester Relationship Specialty Start Date End Date Vanessa Christian APRN PCP - General Family Medicine 10/21/23 05/26/24 documented as of this encounter
--- OUTSIDE RECORDS SUMMARY | 2024-06-17 08:12 | XMS_ITS | Encounter Summary ---
Author Organization [facility] [place] [address] Care Team Providers Care Furniture Stainer Name Role Phone Vanessa Christian Lane DOTSON Primary Care Provider [phone] Encounter Details Date Type Department Care Team (Late st Contact Info) Description 01/09/2024 2:30 PM EDT Clinical Support Same Day at [facility] [place] [address] Social History Tobacco Use Types Packs/Day Years Used Date Smoking Tobacco: Former Cigarettes Smokeless Tobacco: Never Comments:Quit 15 + years ago Alcohol Use Standard Drinks/Week Comments Yes 0 (1 standard drink = 0.6 oz pur e alcohol) rare [facility] Inpatient Questions Answer Date Recorded Prevent Contact [...] type and screen performed while in the [facility]. Sent to Radiology for chest x-ray. Special medication instructions: None Procedure date: not booked. Darian documented in this encounter Plan of Treatment Upcoming Encounters Date Type Department Care Team (Late st Contact Info) Description 11/30/2024 3:00 PM EST Office Visit Cardiology at [address] [place] [address] Neftali Ernandez MD [facility] [place] [address] documented as of this encounter Visit Diagnoses Not on filedocumented in this encounter Care Teams Furniture Stainer Relationship Specialty Start Date End Date Vanessa Christian APRN PCP - General Family Medicine 10/21/23 05/26/24 documented as of this encounter
--- OUTSIDE RECORDS SUMMARY | 2024-06-17 08:12 | XMS_ITS | Encounter Summary ---
Author Organization [place] [address] Care Team Providers Care Cabin Agent Name Role Phone Aparna Jordan MAURI Primary Care Provider [phone] Reason for Visit * Auth/Cert (Routine) Specialty [...] ARTERIAL GRAFT (WRVU 7.93) Hayder Graham MD [facility] CARDIOTHORACIC [place] [address] [facility] Referral ID Status Reason Start Date Expiration Date Visits Re quested Visits Authorized [id number] 1 1 Encounter Details Date Type Department Care Team (Late st Contact Info) Description 02/17/2024 7:30 AM EDT - 02/17/2024 1:26 PM EDT Surgery [place] [id number] Hayder Graham MD [facility] CARDIOTHORACIC [place] [address] ENDOSCOPIC HARVEST VEIN(S) FOR CABG (WRVU 0.31) Social History Tobacco Use Types Packs/Day Years Used Date Smoking Tobacco: Former Cigarettes Smokeless Tobacco: Never Comments:Quit 15 + years ago Alcohol Use Standard Drinks/Week Comments Yes 0 (1 standard drink = 0.6 oz pur e alcohol) rare [facility] Utilities Answer Date Recorded In [...] Patient Age: 63 y.o. Birthdate: 1960 Language: St Lucian Race: White Ethnicity: Not nor Admit Date: 02/17/2024 Discharge Date: 02/24/24 Attending Physician: Hayder Graham MD Follow-up Recommendations for Providers: Please continue routine management of cardiovascular risk factors including blood pressure, lipids,glucose, etc. Please note any changes to medications. Patient to follow up with PCP, Aparna Jordan APRN, in 1-2 weeks. Patient to follow up with Vector Control Specialist, Neftali Ernandez MD , in 2 weeks. Patient to follow up with Cardiac Surgeon, Dr. Hayder Graham, with a chest x-ray, EKG, and Echo. Inpatient Provider Contact Information: [facility] Section of Cardiac Surgery [facility] [address] FAX [phone] Discharge Diagnoses (Hospital Problems) Primary Diagnoses: /CAD [...] insufficiency. He has glaucoma. He used to [email or web address] until about 15 years ago. He has undergone prior herniorrhaphy. 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 Major Procedures/Operations: 02/17/24 s/p avr/cabgx3 CABG x 3 JOSE->LAD SVG->dRCA SVG->OM1 EVH from LLE AVR with a 23 mm Inspiris Bioprosthesis Hospital Course: Karlos Garcia was admitted to [facility] on 02/17/2024 via the Same Day [...] Hayder Graham and/or the Cardiac Surgery Physician Book Reviewer Team may be reached at . [...] Dr. Hayder Graham. You may use a [place] Track or treadmill but avoid any pulling [...] while being managed by your PCP and/or Vector Control Specialist. For future medication refills, please refer to your PCP and/or Vector Control Specialist after your discharge from our service. Thank you REMOVE CHEST TUBE SUTURES ON OR AFTER 03/02/24 Home oxygen therapy: N/A Follow up appointments: You should follow up with your PCP, Aparna Jordan APRN, in 1-2 weeks. Our office will schedule an appointment with your Vector Control Specialist, Neftali Ernandez MD , in 2 [...] Future Orders Complete By Expires Echocardiogram Transthoracic [30305 CPT(R)] 03/26/2024 09/25/2024 Process Instructions: Scheduling Instructions: Questions: Where will study be performed?: [facility] Clinics Does the patient have Congenital Heart Disease?: Does patient require sedation?: Sedation rationale: XR Chest PA & Lateral (Generic) [12200 82830 Custom] 03/26/2024 09/25/2024 Process Instructions: Scheduling Instructions: Questions: Portable exam?: Reason for exam and clinical history: s/p avr/cabg Clinical information / jerome questions for radiologist: Stat read required?: Date of injury if applicable: Requested Time: Where will study be performed?: [facility] Radiology Referral to Cardiac Rehab [CKC661 Custom] As directed Process Instructions: If no [...] admission to Home Health. [address] Phone Number: Date of : 1960 Inpatient DOCUMENTATION FOR VNA SERVICES (INCLUDING THOSE PATIENTS WITH MEDICARE COVERAGE REQUIRING HOME VNA SERVICES AND/OR HOSPICE SERVICES) PATIENT'S LOCATION: Karlos Garcia [address] [place] [phone] Director Trade's Name: self/family In discussion with the attending physician, it is certified that this patient is under their care and that they, or a Nurse Practitioner, or Physician Book Reviewer who is working directly with them, [...] for services as follows: HOME HEALTH AGENCY: [facility] [address] [place] [phone] RN orders: Cardiopulmonary assessment, incisional assessment, assess [...] issues please call the Cardiology Office at [phone] FOR MEDICARE ONLY: (please delete this section [...] to be obtained from this patient's PCP: Apanra Reed APRN [address] / [place] [address] . All VNA agencies which cover the area of patient's residence have been reviewed, either verbally or in writing, and patient/family have chosen the home health care agency noted. Questions: Disciplines Requested: Nursing Physical Therapy Arrangements for VNA/home care: As above. Signed: NEFTALI MENON PA-C [facility] Section of Cardiac Surgery [facility] [address] FAX [phone] Date: 02/24/2024 CC: Aparna Jordan, MAURI Jordan, Aparna Sherman APRN [address] [place] [address] documented in this encounter Discharge Instructions * [...] Hayder Graham and/or the Cardiac Surgery Physician Book Reviewer Team may be reached at . [...] Dr. Hayder Graham. You may use a Strathcona Track or treadmill but avoid any pulling [...] while being managed by your PCP and/or Vector Control Specialist. For future medication refills, please refer to your PCP and/or Vector Control Specialist after your discharge from our service. Thank you REMOVE CHEST TUBE SUTURES ON OR AFTER 03/02/24 Home oxygen therapy: N/A Follow up appointments: You should follow up with your PCP, Aparna Jordan APRN, in 1-2 weeks. Our office will schedule an appointment with your Vector Control Specialist, Neftali Ernandez MD , in 2 [...] 0600 and on the weekends please page [phone]. * Eric Barahona PA - 02/23/2024 9:27 [...] 0600 and on the weekends please page [phone]. * Tiffanie Owens - 02/22/2024 2:48 PM [...] d/c for 10 days. 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 He works Precautions/Special Considerations: STERNAL [...] LRAD and supervision Time IN / OUT: 5560-1944 Total Time: 30 minutes; TEFx2 Tiffanie Owens Pager: [phone] Physical Therapy Inpatient Rehabilitation Department * Romeo [...] 0600 and on the weekends please page [phone]. * Kelley Hinson VETERINARY MEDICINE DOCTOR - 02/21/2024 10:15 AM EDT Physical Therapy [...] d/c for 10 days. 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 He works Precautions/Special Considerations: STERNAL [...] LRAD and supervision Time IN / OUT: 6165-8888 Total Time: 25 minutes; TEF 2 Kelley Hinson PTA Pager: [phone] Physical Therapy Inpatient Rehabilitation Department * Louisa [...] 0600 and on the weekends please page [phone]. * Kelley Hinson PTA - 02/20/2024 3:32 [...] at that time Kelley Hinson PTA Pager: [phone] Physical Therapy Inpatient Rehab Department * Louisa [...] 0600 and on the weekends please page [phone]. * Maris Benavides, PT - 02/19/2024 11:22 [...] d/c for 10 days. 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 Precautions/Special Considerations: STERNAL [...] outlined inthis evaluation. MARIS BENAVIDES, PT Pager: [phone] Physical Therapy Inpatient Rehabilitation Department Time IN / OUT: 5031-4253 Total Time: 38 (eval) minutes; * Antonio [...] 0600 and on the weekends please page [phone]. * Minnie Begum PA - 02/18/2024 8:25 [...] site CDI with SANJANA wrap Tubes/Lines/Drains: RIJ/PAC, [place], Med Ctx, L pleural CT, TPW, Naqvi [...] with attending surgeon on rounds this morning. GILLINA Garcia 02/18/2024 Between the hours of 1800 - 0600 and on the weekends please page [phone]. * Kim Ha CAR ICER - 02/17/2024 2:25 PM EDT Respiratory Care [...] plan since last visit. Hayder Graham MD [phone] Source Note - Hayder Graham MD - [...] given written informed consent. Hayder Graham MD [phone] * Hayder Graham MD - 02/17/2024 7:00 [...] given written informed consent. Hayder Graham MD [phone] documented in this encounter Miscellaneous Notes * [...] information for follow-up Home Health & Hospice, [address] [place] [id number] Cardiac Rehab, [address] [place] [id number] Transportation: family or friend will provide Functional status prior to admission: Independent Home Environment: Others in the home: alone. Current Living Arrangements: home/apartment/condo. Accessibility Concerns:a few steps to enter 1 floor home. Current Functional Ability: Assistive Person and Equipment DME used at home: none DME Needed at Discharge: N/A Patient is insured through: Primary Insurance: [employer] Payor: [facility] / Plan: [facility] PPO [...] pain managed with scheduled Tylenol. Worked with [employer]. Ambulated in the roque multiple times during [...] anticipated Patient is insured through: Primary Insurance: [facility] Payor: [facility] / Plan: [facility] PPO [...] Services: Physical Therapy, Registered Nurse Agency Referrals: [facility]. [address] [place] [address] Transportation: family or friend will provide Barriers to discharge: Discharge planning Plan going forward: Service Care Management will continue to follow and assist with discharge planning and coordination of care as indicated. Anticipated Date of Discharge: 02/22/2024 Rhett Bell RN RN/CM - Cellphone: [phone] Pager: [phone] Covering Service RN/CM * Plan of Care [...] Yang RN - 02/19/2024 10:44 AM EDT [facility] CARDIAC REHABILITATION Karlos Garcia was seen today [...] receiving care in [place] must abide by [place] law. The hierarchy [...] The agent with financial power of assistant attorney general or a conservator appointed in accordance with [...] In the past 12 months has the Denator, gas, oil, or water [employer] threatened to shut off services in your [...] [address] [facility] [address] Physical address: [address] [facility], [address] Social & Family Supports: All names listed [...] Information: none noted Health/Prescription Coverage: Primary Insurance: [facility] Payor: [facility] / Plan: [facility] PPO / Product Type: *No Product type* / Secondary Insurance: N/A ; Prescription Coverage: Yes Preferred Pharmacy: [id number] [address] Status: Patient is a : No Primary Care Provider confirmed: Aparna Jordan APRN [phone] Patient/Caregiver Goals of Treatment: dc to home Potential Needs for Transition of Care: home health care Agency Referrals: I have met with the patient to: discuss discharge planning needs. provide the [facility], Office of Care Management letter from the Vehicle Controls Engineer pertaining to rehab referrals. provide a letter describing our affiliations within the [facility] and educate about their right to choose where referrals are sent. provide a list of Home Health Agencies / Durable Medical Equipment vendors which serve their preferred geographic area. provided patient with [facility] Star Quality Rating handout. They have requested referrals to: [facility] [address] [place] [address] Note routed to a Hand Cigar Making Supervisor who will communicate referrals to facilities [...] Reina Greene RN CM, BSN, CMGT- Ext [phone] * Plan of Care - Binta Trinidad [...] Operative Note Patient Name: Karlos Garcia : [id number] MR#: [id number] Case Date: 02/17/2024 Surgeon: Surgeon(s) and Role: * Hayder Graham MD - Primary * Neftali Menon PA - Physician Book Reviewer Preoperative diagnosis: CAD Postoperative diagnosis: CAD, [...] mL Drains: Mediastinal and Left pleural Disposition: [facility] Condition: doing well without problems Attestation: Case Date: 02/17/2024 I performed this procedure without the involvement of a resident. HAYDER GRAHAM MD 02/17/2024 * Op Note - Hayder Graham MD - 02/17/2024 8:20 AM EDT [facility] Operative Note Patient Name: Karlos Garcia : [id number] MR#: [id number] Case Date: 02/17/2024 Surgeon: Surgeons and Role: * Hayder Graham MD - Primary * Neftali Menon PA - Physician Book Reviewer Preoperative diagnosis: CAD Postoperative diagnosis: CAD, [...] VALVE (WRVU 41.32) (N/A) CABG x 3 JSOE->LAD SVG->dRCA SVG->OM1 EVH [...] mL Drains: Mediastinal and Left pleural Disposition: [facility] Procedure Description: The patient was [...] PM EST Office Visit Cardiology at [address] [address] Neftali Ernandez MD [facility] [place] [address] Scheduled Orders Name Type Priority Associated Diagnoses [...] Aortic Valve Open W Cardiopulmonary Bypass Homogrf/Stent (03505) Yes 02/17/2024 7:28 AM EDT CAD Cabg, Artery-Vein, Two (56022) Yes 02/17/2024 7:28 AM EDT CAD Cabg, Arterial, Single (69270) Yes 02/17/2024 7:28 AM EDT CAD Endoscopy W/Video-Asst Vein Taylor, Cabg (96212) Yes 02/17/2024 7:28 AM EDT CAD POCT [...] CHEMISTRY ORDERABLE S [facility] [place] [address] * (ABNORMAL) Basic Metabolic Panel (non-fasting) (02/23/2024 [...] MD CHEMISTRY ORDERABLES [facility] [place] [address] * Potassium (02/22/2024 4:30 AM EDT) Potassium [...] CHEMISTRY ORDERABLE S [facility] [place] [address] * (ABNORMAL) Basic Metabolic Panel (non-fasting) (02/21/2024 [...] MD CHEMISTRY ORDERABLES [facility] [place] [address] * Lactate, whole blood, send to lab ([facility]) (02/21/2024 9:45 AM EDT) [facility] Lactate WB 2.0 0.5 - 2.2 mmol/L [facility] Blood 02/21/2024 9:45 AM EDT 02/21/2024 9:52 AM EDT Narrative Resulting Agency Comment Spec In Lab Hayder Graham MD CHEMISTRY ORDERABLE S Performing Organization Address [facility] Co de Phone Number [facility] [place] [address] * (ABNORMAL) Hepatic Function Panel (02/21/2024 9:45 AM EDT) [facility] Protein, Total 5.7(L) 6.1 - 8.0 g/dL [...] CHEMISTRY ORDERABLE S [facility] [place] [address] * Lipase (02/21/2024 9:45 AM EDT) Lipase 56 0 - 60 unit/L [facility] Blood 02/21/2024 9:45 AM EDT 02/21/2024 9:52 AM EDT Narrative Resulting Agency Comment Spec In Lab Hayder Graham MD CHEMISTRY ORDERABLE S [facility] [place] [address] * Amylase (02/21/2024 9:45 AM EDT) Amylase 69 28 - 100 unit/L [facility] Blood 02/21/2024 9:45 AM EDT 02/21/2024 9:52 AM EDT Narrative Resulting Agency Comment Spec In Lab Hayder Graham MD CHEMISTRY ORDERABLE S Performing Organization Address City/[facility]/ZIP Co de Phone Number [facility] [place] [address] * Potassium (02/21/2024 3:08 AM EDT) Potassium [...] CHEMISTRY ORDERABLE S [facility] [place] [address] * XR Chest PA & Lateral (Generic) (02/20/2024 10:19 AM EDT) WORKSTATION ID [id number] RAD Anatomical Region Laterality Modality Chest N/A Digital Radiogra phy Impressions 02/20/2024 1:11 PM EDT Small pleural effusions. No pneumothorax Thank you for letting us participate in the care of this patient. ??If you are a health care provider and have any questions regarding this report, please contact the number below. ??For patients who have questions please contact the health tire care manager that requested your imaging first. ? Electronically signed by: Rogerio Cruz MD, [facility] ??([phone]), at 02/20/2024 1:11 PM Narrative 02/20/2024 1:11 PM EDT EXAMINATION: XR CHEST PA AND LATERAL (GENERIC) CLINICAL HISTORY: s/p AVR/CABGx3 TECHNIQUE: PA and lateral views of the chest COMPARISON: 02/17/2024 FINDINGS: Support devices: Interval removal of Huffman-Kaila catheter, endotracheal tube and mediastinal chest tubes The cardiac silhouette is stable status post median sternotomy, CABG and aortic valve replacement. There are small pleural effusions. No pneumothorax. Procedure Note Rogerio Cruz MD - 02/20/2024 EXAMINATION: XR CHEST PA AND LATERAL (GENERIC) CLINICAL HISTORY: s/p AVR/CABGx3 TECHNIQUE: PA and lateral views of the chest COMPARISON: 02/17/2024 FINDINGS: Support devices: Interval removal of Huffman-Kaila catheter, endotracheal tubeand mediastinal chest tubes The [...] patients who have questions please contactthe health tire care manager that requested your imaging first. Electronically signed by: Rogerio Cruz MD, [facility]([phone]), at 02/20/2024 1:11 PM Hayder Graham MD IMG DX ORDERABLES * Scan, Peripheral Blood (02/20/2024 4:23 AM EDT) Pathologist [facility] Plat estimate Decreased [facility] RBC Morphology Normal [facility] Blood 02/20/2024 4:23 AM EDT 02/20/2024 4:42 AM EDT Narrative Resulting Agency Comment Spec In Lab Minnie FRENCH HEMATOLOGY CECILIO ALEMAN [facility] [place] [id number] * (ABNORMAL) Differential, Automated (02/20/2024 4:23 AM EDT) [facility] Neutrophil % 81.7 % [facility] Neutrophil Absolute 10.37(H) 1.70 - 6.10 x10(3)/mc L [facility] Lymph % 7.4 % [facility] Lymphocytes Abs 0.9 0.9 - 3.2 x10(3)/mc L [facility] Monocyte % 9.7 % [facility] Monocyte Abs 1.2(H) 0.3 - 0.9 x10(3)/mc L [facility] Eos % 0.1 % [facility] Eosinophils Abs 0.0 0.0 - 0.4 x10(3)/mc L [facility] Basophil % 0.2 % [facility] Baso [...] HEMATOLOGY CECILIO ALEMAN [facility] [place] [address] * (ABNORMAL) Hemogram (02/20/2024 4:23 AM EDT) [...] [facility] NRBC% auto 0.0 % [facility] NRBC Absolute 0.000 0.000 - 0.000 x10(3)/mc L [facility] Blood 02/20/2024 4:23 AM EDT 02/20/2024 4:42 AM EDT Narrative Resulting Agency Comment Spec In Lab Minnie FRENCH HEMATOLOGY CECILIO ALEMAN [facility] [place] [address] * (ABNORMAL) Basic Metabolic Panel (non-fasting) (02/20/2024 4:23 AM EDT) Glucose 113 65 - 199 mg/dL [facility] Comment:Diabetes: >=200 mg/d L plus symptoms Blood Urea Nitrogen 20 10 - 20 mg/dL [facility] Comment:result rechecked-ME Creatinine 0.71(L) 0.80 - 1.50 mg/dL [facility] [...] MD CHEMISTRY ORDERABLE S Performing Organization Address [facility] Co de Phone Number [facility] [place] [address] * Potassium (02/19/2024 3:57 AM EDT) Potassium [...] MD CHEMISTRY ORDERABLE S Performing Organization Address [facility]/ZIP Co de Phone Number [facility] [place] [address] * POCT Glucose (02/18/2024 8:24 AM EDT) Glucose, POC 157 65 - 199 mg/dL [facility] Comment: Supplemental ranges: <140 mg/dL before meals <180 mg/dL all other times of the day Blood 02/18/2024 8:24 AM EDT 02/18/2024 8:24 AM EDT Hayder Graham MD POINT OF CARE TEST ORDERABLES Performing Organization Address City/[facility]/ZIP Co de Phone Number [facility] [place] [address] * Scan, Peripheral Blood (02/18/2024 1:40 AM EDT) Plat estimate Decreased [facility] RBC Morphology Normal [facility] Blood 02/18/2024 1:40 AM EDT 02/18/2024 1:56 AM EDT Narrative Resulting Agency Comment Spec In Lab Neftali FRENCH HEMATOLOGY ORDER OLE Performing Organization Address City/[facility] Co de Phone Number [facility] [place] [address] * (ABNORMAL) Differential, Automated (02/18/2024 1:40 AM EDT) [facility] Neutrophil % 87.1 % [facility] Neutrophil Absolute 15.03(H) 1.70 - 6.10 x10(3)/mc L [facility] Lymph % 3.0 % [facility] Lymphocytes Abs 0.5(L) 0.9 - 3.2 x10(3)/mc L [facility] Monocyte % 9.1 % [facility] Monocyte Abs 1.6(H) 0.3 - 0.9 x10(3)/mc L [facility] Eos % 0.0 % [facility] Eosinophils Abs 0.0 0.0 - 0.4 x10(3)/mc L [facility] Basophil % 0.2 % [facility] Baso [...] HEMATOLOGY ORDER OLE [facility] [place] [address] * (ABNORMAL) Hemogram (02/18/2024 1:40 AM EDT) [...] [facility] NRBC% auto 0.0 % [facility] NRBC Absolute 0.000 0.000 - 0.000 x10(3)/mc L [facility] Blood 02/18/2024 1:40 AM EDT 02/18/2024 1:56 AM EDT Narrative Resulting Agency Comment Spec In Lab Neftali FRENCH HEMATOLOGY ORDER OLE [facility] [place] [address] * (ABNORMAL) Basic Metabolic Panel (non-fasting) (02/18/2024 [...] CHEMISTRY ORDERABLE S [facility] [place] [address] * (ABNORMAL) Troponin (02/18/2024 1:40 AM EDT) Pathologist [facility] Troponin-T, High Sensitivity 342(H) <=22 ng/L [facility] [...] troponin value can be found in the Count Includes The [facility] Laboratory Test Catalog Troponin - Count Includes The [facility] Laboratory Test Catalog Reference: Fourth [place] Definition of Myocardial Infarction. Journal of the [place] [employer] 2018;72:5074-0525 Blood 02/18/2024 1:40 AM EDT 02/18/2024 1:56 AM EDT Narrative Resulting Agency Comment Spec In Lab Hayder Graham MD CHEMISTRY ORDERABLE S Performing Organization Address [facility] Co de Phone Number [facility] [place] [address] * POCT Glucose (02/17/2024 8:13 PM EDT) Glucose, POC 142 65 - 199 mg/dL [facility] Comment: Supplemental ranges: <140 mg/dL before meals <180 mg/dL all other times of the day Blood 02/17/2024 8:13 PM EDT 02/17/2024 8:13 PM EDT Hayder Graham MD POINT OF CARE TEST ORDERABLES Performing Organization Address [facility] de Phone Number [facility] [place] [address] * POCT Glucose (02/17/2024 5:42 PM EDT) Glucose, POC 160 65 - 199 mg/dL [facility] Comment: Supplemental ranges: <140 mg/dL before meals <180 mg/dL all other times of the day Blood 02/17/2024 5:42 PM EDT 02/17/2024 5:42 PM EDT Hayder Graham MD POINT OF CARE TEST ORDERABLES Performing Organization Address [facility] Co de Phone Number [facility] [place] [address] * Hemoglobin (02/17/2024 5:42 PM EDT) Hemoglobin 13.7 13.7 - 16.5 g/dL [facility] Blood 02/17/2024 5:42 PM EDT 02/17/2024 6:10 PM EDT Narrative Resulting Agency Comment Spec In Lab Hayder Graham MD HEMATOLOGY ORDERABL ES Performing Organization Address [facility]/ZIP Co de Phone Number [facility] [place] [address] * Potassium (02/17/2024 5:42 PM EDT) Pathologist [facility] Potassium 4.3 3.5 - 5.0 mmol/L MAYO [...] MD CHEMISTRY ORDERABLE S Performing Organization Address [facility] Co de Phone Number [facility] [place] [address] * (ABNORMAL) BLOOD GAS 2 ARTERIAL (02/17/2024 [...] [facility] FIO2 Art 40 % [facility] PF Ratio Art 195 [facility] Blood 02/17/2024 4:18 PM EDT 02/17/2024 4:18 PM EDT Hayder Graham MD POINT OF CARE TEST ORDERABLES Performing Organization Address City/State/[facility] Co de Phone Number [facility] [place] [address] * XR Chest One View (02/17/2024 1:44 PM EDT) [employer]ingu[employer] WORKSTATION ID [id number] RAD Anatomical Region Laterality Modality Chest N/A Digital Radiogra phy Impressions 02/17/2024 2:12 PM EDT 1. ??No definite pleural fluid collection or pneumothorax. 2. ??Right IJ Huffman-Kaila catheter tip terminates in a descending branch of the right pulmonary artery. Suggest catheter retraction. 3. ??Additional support lines and tubes as above. Thank you for letting us participate in the care of this patient. ??If you are a health care provider and have any questions regarding this report, please contact the number below. ??For patients who have questions please contact the health tire care manager that requested your imaging first. ? Electronically signed by: Denzel Hankins MD, [facility] ??([phone]), at 02/17/2024 2:12 PM Narrative 02/17/2024 2:12 PM EDT EXAMINATION: XR CHEST ONE VIEW CLINICAL HISTORY: s/p avr/cabg eval effusions TECHNIQUE: 1 view of the chest COMPARISON: Chest x-ray 01/09/2024, chest CT 02/03/2024 FINDINGS: ET tube tip terminates 5.2 cm above the carlos. Right IJ Huffman-Kaila catheter tip terminates in a descending branch [...] 5.2 cm above the carlos. Right IJ Huffman-Ganzcatheter tip terminates in a descending branch of [...] fluid collection or pneumothorax. 2. Right IJ Huffman-Kaila catheter tip terminates in a descending branch ofthe right pulmonary artery. Suggest catheter retraction. 3. Additional support lines and tubes as above. Thank you for letting us participate in the care of this patient. If youare a health care provider and have any questions regarding this report,please contact the number below. For patients who have questions please contactthe health tire care manager that requested your imaging first. Electronically signed by: Denzel Hankins MD, [facility]([phone]), at 02/17/2024 2:12 PM Hayder Graham MD [...] [facility] FIO2 Art 100 % [facility] PF Ratio Art 320 [facility] Blood 02/17/2024 1:31 PM EDT 02/17/2024 1:31 PM EDT Hayder Graham MD POINT OF CARE TEST ORDERABLES [facility] [place] [address] * (ABNORMAL) Coox2 (02/17/2024 1:21 PM EDT) [...] TEST ORDERABLES [facility] [place] [address] * (ABNORMAL) BLOOD GAS 2 ARTERIAL (02/17/2024 [...] OF CARE TEST ORDERABLES Performing Organization Address [facility] Co de Phone Number [facility] [place] [address] * (ABNORMAL) Fibrinogen (02/17/2024 12:10 PM EDT) [...] MD HEMATOLOGY ORDERABLE S Performing Organization Address [facility] Co de Phone Number [facility] [place] [address] * (ABNORMAL) Thrombin time (02/17/2024 12:10 PM [...] MD HEMATOLOGY ORDERABLE S Performing Organization Address [facility] Co de Phone Number [facility] [place] [address] * APTT (02/17/2024 12:10 PM EDT) Partial [...] MD HEMATOLOGY ORDERABLE S Performing Organization Address [facility]/ZIP Co de Phone Number [facility] [place] [address] * (ABNORMAL) Prothrombin Time (02/17/2024 12:10 PM [...] HEMATOLOGY ORDERABLE S [facility] [place] [address] * (ABNORMAL) Hemogram (02/17/2024 12:10 PM EDT) [...] [facility] NRBC% auto 0.0 % [facility] NRBC Absolute 0.000 0.000 - 0.000 x10(3)/mc L [facility] Blood 02/17/2024 12:1 0 PM EDT 02/17/2024 12:19 PM EDT Narrative Resulting Agency Comment Spec In Lab Tara York MD HEMATOLOGY ORDERABLE S [facility] [place] [address] * (ABNORMAL) BLOOD GAS 2 ARTERIAL (02/17/2024 [...] HOSPITAL [facility] Comment: Noted by instrument and control service person. Please note: Patients with WBC >100,000 may [...] CARE TEST ORDERABLES [facility] [place] [address] * (ABNORMAL) BLOOD GAS 2 ARTERIAL (02/17/2024 [...] HOSPITAL LAB[facility] Comment: Noted by instrument and control service person. Please note: Patients with WBC >100,000 may [...] OF CARE TEST ORDERABLES Performing Organization Address [facility]/ZIP Co de Phone Number [facility] [place] [address] * (ABNORMAL) Hemoglobin and Hematocrit, blood (02/17/2024 11:04 AM EDT) Pathologist [facility] Hemoglobin 9.6(L) 13.7 - 16.5 g/dL MAYO [...] MD HEMATOLOGY ORDERABL ES Performing Organization Address City/[facility]/ZIP Co de Phone Number [facility] [place] [address] * (ABNORMAL) Platelet count (02/17/2024 11:04 AM EDT) Pathologist [facility] Platelet 106(L) 145 - 357 x10(3)/mc L [facility] Immature Plt % 1.6 0.0 - 7.4 % [facility] Comment: Limitation of the Immature Platelet Fraction (IPF)-May be less reliable when the platelet count is less than 13u966/uL due to statistical imprecision. The IPF value [...] in a decreased state of production. References: [employer] The Clinical Value of the Immature Platelet Fraction (IPF) in Cell Recovery Document Number [id number] 03/2011 [employer] The Role of the Immature Platelet Fraction (IPF) in the Differential Diagnosis of Thrombocytopenia, Document [id number] V002/15/14 P014 Blood 02/17/2024 11:0 4 AM EDT 02/17/2024 11:12 AM EDT Narrative Resulting Agency Comment Spec In Lab Hayder Graham MD HEMATOLOGY ORDERABL ES Performing Organization Address City/State/[facility] Co de Phone Number [facility] [place] [address] * (ABNORMAL) Fibrinogen (02/17/2024 11:04 AM EDT) [...] HEMATOLOGY ORDERABL ES [facility] [place] [address] * (ABNORMAL) BLOOD GAS 2 ARTERIAL (02/17/2024 [...] CARE TEST ORDERABLES [facility] [place] [address] * (ABNORMAL) BLOOD GAS 2 ARTERIAL (02/17/2024 [...] CARE TEST ORDERABLES [facility] [place] [address] * Surgical Pathology Report (02/17/2024 10:01 AM EDT) Final Diagnosis [id number] ? Location: [facility]; [facility]; The signing pathologist has (i) examined the relevant preparation(s) for the specimen(s) and (ii) rendered or confirmed the diagnosis(es). . ?Surgical Pathology DIAGNOSIS Aortic valve leaflets, excision: Valve leaflets with myxoid degeneration, nodular fibrosis and dystrophic calcifications. Electronically signed by: ?Lindsay FERNANDEZ, Livier Gonzalez Verified: ??02/24/2024 13:49 ??Pathologist Performed at: ??-[facility] Dept. of Pathology, [place] [address] Vehicle Controls Engineer: Job Brewer MD, FCAP, ??CLIA Certificate: [id number] SPECIMEN(S) SUBMITTED A - Aortic Valve Leaflets, [...] Sections Processing Blocks submitted for decalcification: A1. Medical Office Technologist sections in 1 cassette labeled A1. ??ajw 02/24/2024 1:49 PM EDT [facility] AORTIC STRUCTURE / Unknown 02/17/2024 10:01 AM EDT 02/17/2024 10:01 AM EDT Hayder Graham MD PATHOLOGY/CYTOLOGY ORDERABLES Performing Organization Address City/[facility]/ZIP Co de Phone Number [facility] [place] [address] * Specimen to Pathology (02/17/2024 10:01 AM EDT) AP Specimen 02/17/2024 10:0 1 AM EDT 02/17/2024 10:01 AM EDT Narrative [facility] - 02/17/2024 10:01 AM EDT Specimen requisition ordered. ??Separate Pathology report to follow Hayder Graham MD PATHOLOGY/CYTOLOGY ORDERABLES Performing Organization Address City/[facility]/ZIP Co de Phone Number [facility] [place] [address] * (ABNORMAL) BLOOD GAS 2 ARTERIAL (02/17/2024 [...] CARE TEST ORDERABLES [facility] [place] [address] * (ABNORMAL) BLOOD GAS 2 VENOUS (02/17/2024 9:34 AM EDT) pH, Venous 7.22(Criti marquez) 7.32 - 7.42 [facility] Comment:Noted by instrument and control service person. PCO2, Venous 43 41 - 51 mmHg [facility] Comment:Noted by instrument and control service person. PO2, Venous 57(H) 25 - 40 mmHg [facility] Comment:Noted by instrument and control service person. Bicarbonate, Venous 17.1 mmol/L [facility] Comment:Noted by instrument and control service person. Base Excess, Venous -10.6 mmol/L [facility] Comment:Noted by instrument and control service person. Hgb Blood Gas 11.2(L) 13.7 - 16.5 g/dL [facility] Comment:Noted by instrument and control service person. Oxyhemoglobin, Venous 86.5 % [facility] Comment:Noted by instrument and control service person. Carboxyhemoglob in, Venous 0.3 % [facility] Comment: Noted by instrument and control service person. Nonsmokers: 0.5-1.5% COHB Smokers: Variable, but usually less than 10% Toxic: 20-30% COHB Lethal: Greater than 60% COHB Methemoglobin, Venous 0.0 <=1.5 % [facility] Comment:Noted by instrument and control service person. Na Whole Blood 156(H) 135 - 145 mmol/L [facility] Comment:Noted by instrument and control service person. K Whole Blood 5.5(H) 3.5 - 5.0 mmol/L [facility] Comment: Noted by instrument and control service person. Please note: Patients with WBC >100,000 may have falsely elevated Potassium levels. Contact the Clinical Chemistry Laboratory if there are any questions. ICa Whole Blood 1.03(L) 1.15 - 1.33 mmol/L [facility] Comment: Noted by instrument and control service person. Note: ??Total bilirubin higher than 20 mg/dL may lead to falsely low ionized calcium. CL Whole Blood 100 98 - 107 mmol/L [facility] Comment:Noted by instrument and control service person. Gluc Whole Bld 132 65 - 199 mg/dL [facility] Comment: Noted by instrument and control service person. Diabetes: >=200 mg/dL plus symptoms Lactate WB 1.0 0.5 - 2.2 mmol/L [facility] Comment:Noted by instrument and control service person. Blood Gas Source Venous [facility] Blood 02/17/2024 9:34 AM EDT 02/17/2024 9:34 AM EDT Hayder Graham MD POINT OF CARE TEST ORDERABLES [facility] [place] [address] * (ABNORMAL) BLOOD GAS 2 ARTERIAL (02/17/2024 [...] OF CARE TEST ORDERABLES Performing Organization Address [facility] Co de Phone Number [facility] [place] [address] * POCT Glucose (02/17/2024 6:38 AM EDT) Glucose, POC 98 65 - 199 mg/dL [facility] Comment: Supplemental ranges: <140 mg/dL before meals <180 mg/dL all other times of the day Blood 02/17/2024 6:38 AM EDT 02/17/2024 6:38 AM EDT Hayder Graham MD POINT OF CARE TEST ORDERABLES Performing Organization Address [facility] Co de Phone Number [facility] [place] [address] * Transesophageal Echo/OR (02/17/2024 6:33 AM EDT) [...] [facility]-operative [facility] of cardiac [...] TARA YORK Referring Physician: APARNA JORDAN Tara Yrok MD ECHO ORDERABLES * Scan Doc: Implantable [...] Mishel Merrill RN)211 (Given - Provider: Otis Corok RN) 0836 (Given - Provider: Jazlyn Maldonado, [...] Mishel Merrill, COLBY)1701 (Given - Provider: Mishel Merirll, RN)2325 (Given - Provider: Otis Crook, COLBY) [...] Routine documented in this encounter Care Teams Cabin Agent Relationship Specialty Start Date End Date Aparna Jordan APRN PCP - General Family Medicine 10/21/23 05/26/24 documented as of this encounter
--- OUTSIDE RECORDS SUMMARY | 2024-06-17 08:12 | XMS_ITS | Encounter Summary ---
Author Organization [facility] [facility] [place] [address] Care Team Providers Care Furniture Assembler And Installer Name Role Phone Vanessa Christian MAURI Primary Care Provider [phone] Reason for Visit * Auth/Cert (Routine) Specialty [...] ARTERIAL GRAFT (WRVU 7.93) Zak Farmer MD [facility] [place] [address] [facility] Referral ID Status Reason Start Date Expiration Date Visits Re quested Visits Authorized [id number] 1 1 Encounter Details Date Type Department Care Team (Late st Contact Info) Description 02/17/2024 7:35 AM EDT Anesthesia Event Main Operating Room [facility] [place] [id number] Roman York MD [facility] [place] [address] Anesthesia Record Procedure Summary Procedure Name Responsible [...] by Sadiq Woo RN PIV 02/17/24; 0715; ujyf-awx-gjojbf catheter system; 18 gauge; cephalic vein (lateral [...] th e electric, gas, oil, or water [email or web address] threatened to shut off services in your [...] Procedure Summary Date: 02/17/24 Room / Location: [facility] OR [address] [place] [address] MAIN OR Anesthesia Start: 734 Anesthesia Stop: [...] shown include unfiled device data. Patient Location: [facility] Level of Consciousness: Sedated (Pharmacologic/Intentional) Pain [...] 08/14/2023 ??? Nevus of face 09/26/2023 Right bahai No past surgical history on file. Social [...] PM EST Office Visit Cardiology at [address] [place] [address] Neftali Ernandez MD [facility] [place] [address] documented as of this encounter [...] mg documented in this encounter Care Teams Furniture Assembler And Installer Relationship Specialty Start Date End Date Vanessa Christian APRN PCP - General Family Medicine 10/21/23 05/26/24 documented as of this encounter
--- OUTSIDE RECORDS SUMMARY | 2024-06-17 08:12 | XMS_ITS | Encounter Summary ---
Author Organization [facility] [place] [address] Care Team Providers Care Feltmaker Name Role Phone Vanessa Christian MAURI Primary Care Provider [phone] Encounter Details Date Type Department Care Team (Late st Contact Info) Description 01/10/2024 Orders Only [place] [phone] Lawson Napoles PA [facility] [place] [place] [address] Screening for cardiovascular condition; Aortic valve stenosis, [...] PM EST Office Visit Cardiology at [address] [place] [phone] Neftali Ernandez MD [facility] [place] [address] documented as of this encounter Visit Diagnoses Diagnosis Screening for cardiovascular condition Screening for other and unspecified cardiovascular conditions Aortic valve stenosis, etiology of cardiac valve disease unspecified documented in this encounter Care Teams Feltmaker Relationship Specialty Start Date End Date Vanessa Christian APRN PCP - General Family Medicine 10/21/23 05/26/24 documented as of this encounter
--- OUTSIDE RECORDS SUMMARY | 2024-06-17 08:12 | XMS_ITS | Encounter Summary ---
Author Organization [facility] Address [facility] [place] [address] Care Team Providers Care Animal Assistant Name Role Phone Vanessa Christian WATERMELON INSPECTOR Primary Care Provider [phone] Reason for Referral * Diagnostic Test (Routine) - Closed Specialty Diagnoses / Procedures Referred By Contac t Referred To Contact Radiology Diagnoses Nonrheumatic aortic valve stenosis Procedures CT Chest wo Contrast (Generic) Louisa Reid PA [facility] [place] [address] [facility] [place] [address] Referral ID Status Reason Start Date Expiration Date V isits Requested Visits Authorized [id number] Closed Specialty Service Requested 01/10/2024 07/11/2025 1 1 Encounter Details Date Type Department Care Team (Late st Contact Info) Description 01/09/2024 Orders [place] [address] Zak Farmer MD [facility] [place] [address] Nonrheumatic aortic valve stenosis Social History Tobacco [...] PM EST Office Visit Cardiology at [address] [place] [address] Neftali Ernandez MD [facility] [place] [address] documented as of this encounter Results * CT Chest wo Contrast (Generic) (02/03/2024 7:44 AM EDT) WORKSTATION ID [id number] RAD Anatomical Region Laterality Modality Chest Computed [...] who have questions please contact the health inspector health care facilities that requested your imaging first. ? Narrative [...] nodule along the minor fissure (series 302 [id number]) and a 8 mm right lower lobe [...] patients who have questions please contactthe health inspector health care facilities that requested your imaging first. Zak Farmer MD IMG CT ORDERABLES documented in this encounter Visit Diagnoses Diagnosis Nonrheumatic aortic valve stenosis Aortic valve disorders Nonrheumatic aortic valve stenosis Aortic valve disorders documented in this encounter Care Teams Animal Assistant Relationship Specialty Start Date End Date Vanessa Christian APRN PCP - General Family Medicine 10/21/23 05/26/24 documented as of this encounter
--- OUTSIDE RECORDS SUMMARY | 2024-06-17 08:12 | XMS_ITS | Encounter Summary ---
Author Organization [facility] [place] [address] Care Team Providers Care Director Of Hotel Operations Name Role Phone Vanessa Christian APRN Primary Care Provider [phone] Encounter Details Date Type Department Care Team [...] PM EST Office Visit Cardiology at [address] [place] [phone] Neftali Ernandez MD [facility] [place] [address] documented as of this encounter Visit Diagnoses Not on filedocumented in this encounter Care Teams Director Of Hotel Operations Relationship Specialty Start Date End Date Vanessa Christian APRN PCP - General Family Medicine 10/21/23 05/26/24 documented as of this encounter
--- OUTSIDE RECORDS SUMMARY | 2024-06-17 08:12 | XMS_ITS | Encounter Summary ---
Author Organization [facility] [place] [address] Care Team Providers Care Senior Adults Director Name Role Phone Vanessa Christian MAURI Primary Care Provider [phone] Reason for Visit * Auth/Cert (Routine) Specialty [...] MD [facility] [place] [address] [facility] Referral ID Status Reason Start Date Expiration Date Visits Re quested Visits Authorized [id number] 1 1 Encounter Details Date Type Department Care Team (Late st Contact Info) Description 02/03/2024 10:00 AM EDT - 02/03/2024 11:00 AM EDT [place] [address] Saira Lua MD [facility] [place] [address] CARDIAC CATHETERIZATION Social History Tobacco Use Types [...] lbs Follow-up Visits Follow up with your bakery team leader in 2-4 weeks Access Site 'Black and Blue' and tenderness is expected during the first week Call if you noted a mass (lump) greater than the size of a ellis Call Office with any Questions and if you have any of the following Clarence Lane M.D Interventional Acid Tester Trainmaster #: [phone] * Attachments The following attachments cannot be [...] Pre-Procedure H&P Update: Cardiac Catheterization Karlos Anthony [id number] 1960 Chief Complaint: Aortic stenosis HPI: Mr. [...] is inthe chart Clarence Lane MD Interventional Acid Tester 02/03/24 11:48 AM documented in this encounter Miscellaneous Notes * Brief Op Note - Clarence Lane MD - 02/03/2024 12:51 PM EDT Preliminary Cardiac Catheterization Procedure Note: Patient Name: Karlos Anthony : [id number] MR#: [id number] Case Date: 02/03/2024 Trainmaster: Surgeon(s) and Role: * Saira Lua MD [...] PM EST Office Visit Cardiology at [address] [address] Neftali Ernandez MD [facility] [place] [address] Scheduled Orders Name Type Priority Associated Diagnoses [...] Modality Other Narrative 02/12/2024 3:47 PM EDT ?[facility] ? Cardiac Catheterization/Intervention Report ? Patient Name: Patenaude, Karlos ? Procedure Date: 02/03/2024 ? A #: [id number] ? Primary Physician: Saira Lua ? Case #: [id number] ? File Name: [id number] ? Catheterization Order Number: [id number] ? [facility] ? Final Report [place], [place] ? Patient Name: ? Karlos Patenaude ? ID#: ?[id number] ? : ?1960 ? Procedure Date: ? [...] Procedure Note Saira Lua MD - 02/12/2024 [facility] Cardiac Catheterization/Intervention Report Patient Name: Karlos Anthony Procedure Date: 02/03/2024 A #: [id number] Primary Physician: Saira Lua Case #: [id number] File Name: [id number] Catheterization Order Number: [id number] [facility] FinalReport [place], [place] Patient Name: Karlos Anthony ID#:[id number] :1960 Procedure Date: February 03, 2024 Case [...] III. The [facility] clinical frailty scale is 3: Managing Well. [...] (Bezet) 372 ms MUSE SYSTEM Calculated P [place] 59 degrees MUSE SYSTEM Calculated R [place] 34 degrees MUSE SYSTEM Calculated T [place] 63 degrees MUSE SYSTEM INTERPRETATION Sinus bradycardia [...] MD) documented in this encounter Care Teams Senior Adults Director Relationship Specialty Start Date End Date Vanessa Christian APRN PCP - General Family Medicine 10/21/23 05/26/24 documented as of this encounter
--- OUTSIDE RECORDS SUMMARY | 2024-06-17 08:12 | XMS_ITS | Encounter Summary ---
Author Organization [facility] [place] [address] Care Team Providers Care Sheriffs Detective Name Role Phone Vanessa Christian APRN Primary Care Provider [phone] Encounter Details Date Type Department Care Team (Late st Contact Info) Description 12/26/2023 Notes Only Cardiology at [address] [address] Neftali Ernandez MD [facility] [place] [address] Social History Tobacco Use Types Packs/Day Years [...] EDT Echocardiogram images reviewed from [facility]. Indeed, the aortic valve appears severely stenotic. Cannotrule out bicuspid valve documented in this encounter Plan of Treatment Upcoming Encounters Date Type Department Care Team (Late st Contact Info) Description 11/30/2024 3:00 PM EST Office Visit Cardiology at [address] [address] Neftali Ernandez MD [facility] [place] [address] documented as of this encounter Visit Diagnoses Not on filedocumented in this encounter Care Teams Sheriffs Detective Relationship Specialty Start Date End Date Vanessa Christian APRN PCP - General Family Medicine 10/21/23 05/26/24 documented as of this encounter
--- OUTSIDE RECORDS SUMMARY | 2024-06-17 08:12 | XMS_ITS | Encounter Summary ---
Author Organization [facility] Address [facility] Ivana linareseileen [place] [id number] Care Team Providers Care Crop Specialist Name Role Phone Vanessa Christian MAURI Primary Care Provider [phone] Reason for Referral * Consultation (Routine) - Closed Specialty Diagnoses / Procedures Referred By Contac t Referred To Contact Cardiac Surgery Diagnoses Nonrheumatic aortic valve stenosis significant - TAVR ( defers to Card Surg d/t age) Errol Loya MD [facility] [place] [address] Zak Farmer MD [facility] [place] [address] Referral ID Status Reason Start Date Expiration Date V isits Requested Visits Authorized [id number] Closed Consult, Test & Treat 10/21/2023 10/20/2024 1 1 Reason for Visit * Reason Comments Chest Pain Shortness of Breath Aortic Stenosis Encounter Details Date Type Department Care Team (Late st Contact Info) Description 10/21/2023 1:20 PM EST Office Visit Cardiology at [address] [address] Errol Loya MD [facility] [address] Nonrheumatic aortic valve stenosis Social History Tobacco [...] the meantime will refer to T at [facility] for further evaluation. Logistics and preliminary review [...] the meantime will refer to T at [facility] for further evaluation. Logistics and preliminary review [...] PM EST Office Visit Cardiology at [address] [place] [phone] Errol Loya MD [facility] [address] Scheduled Referrals Name Type Priority Associated Diagnoses Order Schedule Amb Referral to Structural Heart Outpatient Referral Routine Nonrheumatic aortic valve stenosis Ordered: 10/21/2023 documented as of this encounter Visit Diagnoses Diagnosis Nonrheumatic aortic valve stenosis Aortic valve disorders documented in this encounter Care Teams Crop Specialist Relationship Specialty Start Date End Date Vanessa Christian APRN PCP - General Family Medicine 10/21/23 05/26/24 documented as of this encounter
--- OUTSIDE RECORDS SUMMARY | 2024-06-17 08:12 | XMS_ITS | Encounter Summary ---
Author Organization [facility] Address [facility] [place] [address] Care Team Providers Care College Basketball Coach Name Role Phone Vanessa Christian MAURI Primary Care Provider [phone] Reason for Visit * Consultation (Routine) - Closed Specialty Diagnoses / Procedures Referred By Contac t Referred To Contact Cardiac Surgery Diagnoses Nonrheumatic aortic valve stenosis significant - TAVR ( defers to Card Surg d/t age) Neftali Ernandez MD [facility] [place] [address] Zak Farmer MD [facility] [place] [address] Referral ID Status Reason Start Date Expiration Date V isits Requested Visits Authorized [id number] Closed Consult, Test & Treat 10/21/2023 10/20/2024 1 1 Encounter Details Date Type Department Care Team (Late st Contact Info) Description 01/09/2024 1:40 PM EDT Office [place] [address] Zak Farmer MD [facility] [place] [address] Nonrheumatic aortic valve stenosis Social [...] office. Best personal regards, Zak Farmer MD [phone] In aggregate 55 minutes were spent evaluating [...] PM EST Office Visit Cardiology at [address] [place] [phone] Neftali Ernandez MD [facility] [place] [address] documented as of this encounter Results * [...] have questions please contact the health healthcare network consultant that requested your imaging first. ? [...] who have questions please contactthe health healthcare network consultant that requested your imaging first. Zak [...] [facility] [place] [address] * Hepatic Function Panel (01/09/2024 2:58 PM EDT) Pathologist [facility] Protein, Total 6.7 6.1 - 8.0 g/dL [...] CHEMISTRY ORDERABLE S Performing Organization Address [facility] Co de Phone Number [facility] [place] [address] * Prothrombin Time (01/09/2024 2:58 PM EDT) [facility] Prothrombin Time 10.6 9.4 - [...] HEMATOLOGY ORDERABL ES Performing Organization Address [facility]/ZIP Co de Phone Number [facility] [place] [address] * Type and Screen Future Surgery, [facility] SAME DAY PROGRAM ONLY) (01/09/2024 [...] Farmer MD BLOOD BANK LAB CECILIO ALEMAN [facility] Organization Address City/State/ZIP Co de Phone Number [facility] [place] [address] documented in this encounter Visit Diagnoses Diagnosis Nonrheumatic aortic valve stenosis Aortic valve disorders Nonrheumatic aortic valve stenosis Aortic valve disorders documented in this encounter Care Teams College Basketball Coach Relationship Specialty Start Date End Date Vanessa Christian APRN PCP - General Family Medicine 10/21/23 05/26/24 documented as of this encounter
--- OUTSIDE RECORDS SUMMARY | 2024-06-17 08:12 | XMS_ITS | Encounter Summary ---
Author Organization [facility] [place] [address] Care Team Providers Care Lab Manager Name Role Phone Vanessa Christian MAURI Primary Care Provider [phone] Encounter Details Date Type Department Care Team (Latest Contact Info) Description 01/09/2024 3:00 PM EDT Laboratory [place] [phone] Nonrheumatic aortic valve stenosis Social History Tobacco Use Types Packs/Day Years Used Date Smoking Tobacco: Former Cigarettes Smokeless Tobacco: Never Comments:Quit 15 + years ago Alcohol Use Standard Drinks/Week Comments Yes 0 (1 standard drink = 0.6 oz pur e alcohol) rare [facility] Inpatient Questions Answer Date Recorded Prevent [...] PM EST Office Visit Cardiology at [address] [phone] Neftali Ernandez MD [facility] [address] [place] [address] documented as of this encounter Procedures Procedure [...] PM EDT) ABORH Recheck Order Order Placed [facility] ABORH Type Recheck Completed [facility] Blood 01/09/2024 2:58 PM EDT 01/09/2024 3:08 PM EDT Narrative Resulting Agency Comment Spec In Lab Zak Farmer MD BLOOD BANK LAB CECILIO ALEMAN [facility] [place] [address] * Differential, Automated (01/09/2024 2:58 PM EDT) Neutrophil % 70.5 % [facility] Neutrophil Absolute 4.34 1.70 - 6.10 x10(3)/[facility] LABOR[facility] Lymph % 18.9 % [facility] Lymphocytes Abs 1.2 0.9 - 3.2 x10(3)/[facility] Monocyte % 8.0 % [facility] Monocyte Abs 0.5 0.3 - 0.9 x10(3)/[facility] LABOR[facility] Eos % 1.6 % [facility] Eosinophils Abs 0.1 0.0 - 0.4 x10(3)/[facility] LABOR[facility] Basophil % 0.5 % [facility] Baso Absolute 0.0 0.0 - 0.1 x10(3)/[facility] LABOR[facility]ORY Immature Gran % 0.50 % [facility] Comment: Immature granulocytes(IG's)percentage and absolute count will include metamyelocytes, myelocytes, and promyelocytes. Blood smears from CBCs yielding IG's will be scanned manually for concordance. If this scan disagrees with the automated IG or if promyelocytes are noted, a manual differential will be performed. Immature Gran Absolute 0.03 0.00 - 0.04 x10(3)/[facility] Blood 01/09/2024 2:58 PM EDT 01/09/2024 3:03 PM EDT Narrative Resulting Agency Comment Spec In Lab Zak Farmer MD HEMATOLOGY ORDERABL ES [facility] [place] [address] * Hemogram (01/09/2024 2:58 PM EDT) White Blood Cell 6.2 4.0 - 9.5 x10(3)/[facility] Red Blood Cell 5.53 4.58 - 5.54 x10(6)/[facility] Hemoglobin 16.1 13.7 - 16.5 g/dL [facility] Hematocrit 46.9 40.5 - 48.5 % [facility] Mean Cell Volume 84.8 82.9 - 93.1 fL [facility] Mean Cell Hemoglobin 29.1 27.5 - 32.1 pg [facility] Mean Cell Hemoglobin Concentration 34.3 32.0 - 35.7 g/dL [facility] Platelet 187 145 - 357 x10(3)/[facility] LABORAT[facility] RDW Standard Deviation 39.2 36.0 - 45.0 fL [facility] RDW coefficient of variation 12.6 11.4 - 13.8 % [facility] Mean Platelet Volume 9.5 7.6 - 12.9 fL [facility] NRBC% auto 0.0 % [facility] NRBC Absolute 0.000 0.000 - 0.000 x10(3)/[facility] Blood 01/09/2024 2:58 PM EDT 01/09/2024 3:03 PM EDT Narrative Resulting Agency Comment Spec In Lab Zak Farmer MD HEMATOLOGY ORDERABL ES [facility] [place] [address] * Basic Metabolic Panel (non-fasting) (01/09/2024 2:58 [...] ORDERABLE S [facility] [place] [address] * Hepatic Function Panel (01/09/2024 2:58 PM [...] CHEMISTRY ORDERABLE S Performing Organization Address [facility] Co de Phone Number [facility] [place] [address] * Prothrombin Time (01/09/2024 2:58 PM EDT) [...] MD HEMATOLOGY ORDERABL ES Performing Organization Address [facility] Co de Phone Number [facility] [place] [address] * Type and Screen Future Surgery, LAUREATE [...] BANK LAB ORDE RABLES Performing Organization Address City/[facility]/[place] [address] documented in this encounter Visit Diagnoses Diagnosis Nonrheumatic aortic valve stenosis Aortic valve disorders documented in this encounter Care Teams Lab Manager Relationship Specialty Start Date End Date Vanessa Christian APRN PCP - General Family Medicine 10/21/23 05/26/24 documented as of this encounter
--- OUTSIDE RECORDS SUMMARY | 2024-06-17 08:12 | XMS_ITS | Encounter Summary ---
Author Organization [facility] Address [facility] [place] [address] Care Team Providers Care Cloud Automation Tester Name Role Phone Vanessa Christian MAURI Primary Care Provider [phone] Encounter Details Date Type Department Care Team (Late st Contact Info) Description 02/14/2024 Orders Only [place] [phone] Zak Farmer MD [facility] CARDIOTHORACIC [place] [address] Coronary artery disease, unspecified vessel or lesion type, unspecified whether angina present, unspecified whether [place] or transplanted heart (Primary Dx) Social History [...] PM EST Office Visit Cardiology at [address] [place] [phone] Neftali Ernandez MD [facility] CARDIOLOGY [place], [place] [phone] documented as of this encounter Results * EKG 12 Lead (03/12/2024 2:35 PM EDT) Ventricular rate 59 BPM MUSE SYSTEM Atrial Rate 59 BPM MUSE SYSTEM P-R Interval 190 ms MUSE SYSTEM QRS Duration 92 ms MUSE SYSTEM Q-T Interval 406 ms MUSE SYSTEM QTC Calculated (Bezet) 401 ms MUSE SYSTEM Calculated P [place] -12 degrees MUSE SYSTEM Calculated R [place] 24 degrees MUSE SYSTEM Calculated T [place] 74 degrees MUSE SYSTEM INTERPRETATION Sinus bradycardia T wave abnormality, consider anterior ischemia Abnormal ECG When compared with ECG of 17-FEB-2024 13:24, [place] interval has decreased T wave inversion now evident in Anterior leads Confirmed by Paul Guzman ([id number]) on 03/15/2024 8:36:23 AM MUSE SYSTEM 03/12/2024 2:35 PM EDT 03/15/2024 8:36 AM EDT Zak Farmer MD ECG ORDERABLES MUSE SYSTEM * XR Chest PA & Lateral (Generic) (03/12/2024 1:42 PM EDT) WORKSTATION ID [id number] RAD Anatomical Region Laterality Modality Chest N/A [...] have questions please contact the health primary health care nurse that requested your imaging first. ? Narrative 03/13/2024 8:28 AM EDT EXAMINATION: XR CHEST PA AND LATERAL (GENERIC) CLINICAL HISTORY: s/p cabg eval effusions I25.10, Atherosclerotic heart disease of [place] coronary artery without angina pectoris TECHNIQUE: PA [...] eval effusions I25.10, Atherosclerotic heart disease of [place] coronary artery withoutangina pectoris TECHNIQUE: PA and [...] who have questions please contactthe health primary health care nurse that requested your imaging first. Zak Farmer MD IMG DX ORDERABLES documented in this encounter Visit Diagnoses Diagnosis Coronary artery disease, unspecified vessel or lesion type, unspecified whether angina present, unspecified whether [place] or transplanted heart- Primary Coronary artery disease, unspecified vessel or lesion type, unspecified whether angina present, unspecified whether [place] or transplanted heart documented in this encounter Care Teams Cloud Automation Tester Relationship Specialty Start Date End Date Vanessa Christian APRN PCP - General Family Medicine 10/21/23 05/26/24 documented as of this encounter
--- OUTSIDE RECORDS SUMMARY | 2024-06-17 08:13 | XMS_ITS | Encounter Summary ---
[place] [address] Care Team Providers Care Field Reimbursement Manager Name Role Phone Victor M Lafleur MD Primary Care Provider [phone] Reason for Visit * Reason Onset Date Comments Referral 09/20/2023 Encounter Details Date Type Department Care Team (Late st Contact Info) Description 09/20/2023 Telephone Cardiology at [address] [address] Karen Billy, lightning rod installer Social History Tobacco Use Types Packs/Day Years [...] 3:00 PM EST Office Visit Cardiology at [address] [place] [address] Neftali Ernandez MD [facility] [place] [address] documented as of this encounter Visit Diagnoses Not on filedocumented in this encounter Care Teams Field Reimbursement Manager Relationship Specialty Start Date End Date Victor M Lafleur MD PCP - General 10/02/13 10/20/23 documented as of this encounter
--- OUTSIDE RECORDS SUMMARY | 2024-06-17 08:13 | XMS_ITS | Encounter Summary ---
Author Organization [facility] [place] [address] Care Team Providers Care Novelty Twister Operator Name Role Phone Victor M Lafleur MD Primary Care Provider [phone] Encounter Details Date Type Department Care Team (Late st Contact Info) Description 09/26/2023 Abstract Cardiology at [address] [address] Karen Billy, RN Nonrheumatic aortic [...] PM EST Office Visit Cardiology at [address] [place] [address] Neftali Ernandez MD [facility] [place] [address] documented as of this encounter Visit Diagnoses Diagnosis Nonrheumatic aortic valve stenosis Aortic valve disorders Nevus of face Benign neoplasm of skin of other and unspecified parts of face documented in this encounter Care Teams Novelty Twister Operator Relationship Specialty Start Date End Date Victor M Lafleur MD PCP - General 10/02/13 10/20/23 documented as of this encounter
--- OUTSIDE RECORDS SUMMARY | 2024-06-19 08:23 | XMS_ITS | Encounter Summary ---
Author Organization [facility] Address [facility] [place] [address] Care Team Providers Care Productivity Engineer Name Role Phone Vanessa Christian MAURI Primary Care Provider [phone] Encounter Details Date Type Department Care Team (Latest Contact Info) Description 05/20/2024 Travel Social History Tobacco Use Types Packs/Day Years Used Date Smoking Tobacco: Former Cigarettes Smokeless Tobacco: Never Comments:Quit 15 + years ago Alcohol Use Standard Drinks/Week Comments Yes 0 (1 standard drink = 0.6 oz pur e alcohol) rare [facility] Utilities Answer Date Recorded In the [...] PM EST Office Visit Cardiology at [address] [phone] Neftali Ernandez MD [facility] [place] [address] documented as of this encounter Visit Diagnoses Not on filedocumented in this encounter Care Teams Productivity Engineer Relationship Specialty Start Date End Date Vanessa Christian APRN PCP - General Family Medicine 10/21/23 05/26/24 documented as of this encounter
--- OUTSIDE RECORDS SUMMARY | 2024-06-19 08:23 | XMS_ITS | Encounter Summary ---
Author Organization [facility] Address [facility] [place] [address] Care Team Providers Care Health Care Consultant Name Role Phone Vanessa Christian MAURI Primary Care Provider [phone] Encounter Details Date Type Department Care Team (Late st Contact Info) Description 03/12/2024 2:40 PM EDT Office [place] [phone] Zak Farmer MD [facility] CARDIOTHORAC[place] [address] Coronary artery disease, unspecified vessel or lesion type, unspecified whether angina present, unspecified whether [place] or transplanted heart Social History Tobacco Use Types Packs/Day Years Used Date Smoking Tobacco: Former Cigarettes Smokeless Tobacco: Never Comments:Quit 15 + years ago Alcohol Use Standard Drinks/Week Comments Yes 0 (1 standard drink = 0.6 oz pur e alcohol) rare [facility] Utilities Answer Date Recorded In the past 12 months has e [employer], gas, oil, or water [employer] threatened to shut off services in [...] 2:40 PM EDT To: MD Vanessa Coles, AUTO OVERHAULER Re; Karlos Santa ( 1960) We had [...] office. Best personal regards, Zak Farmer MD [phone] documented in this encounter Plan of Treatment Upcoming Encounters Date Type Department Care Team (Late st Contact Info) Description 11/30/2024 3:00 PM EST Office Visit Cardiology at [address] [place] [address] Neftali Ernandez MD [facility] [place] [place] [address] documented as of this encounter Procedures Procedure Name Priority Date/Time Associated Diagnosis Comments EKG 12-LEAD Routine 03/12/2024 2:35 PM EDT Coronary artery disease, unspecified vessel or lesion type, unspecified whether angina present, unspecified whether [place] or transplanted heart documented in this encounter Results * EKG 12 Lead (03/12/2024 2:35 PM EDT) Ventricular rate 59 BPM MUSE SYSTEM Atrial Rate 59 BPM MUSE SYSTEM P-R Interval 190 ms MUSE SYSTEM QRS Duration 92 ms MUSE SYSTEM Q-T Interval 406 ms MUSE SYSTEM QTC Calculated (Bezet) 401 ms MUSE SYSTEM Calculated P [place] -12 degrees MUSE SYSTEM Calculated R [place] 24 degrees MUSE SYSTEM Calculated T [place] 74 degrees MUSE SYSTEM INTERPRETATION Sinus bradycardia T wave abnormality, consider anterior ischemia Abnormal ECG When compared with ECG of 17-FEB-2024 13:24, [place] interval has decreased T wave inversion now evident in Anterior leads Confirmed by Paul Guzman ([id number]) on 03/15/2024 8:36:23 AM MUSE SYSTEM 03/12/2024 2:35 PM EDT 03/15/2024 8:36 AM EDT Zak Farmer MD ECG ORDERABLES MUSE SYSTEM documented in this encounter Visit Diagnoses Diagnosis Coronary artery disease, unspecified vessel or lesion type, unspecified whether angina present, unspecified whether [place] or transplanted heart documented in this encounter Care Teams Health Care Consultant Relationship Specialty Start Date End Date Vanessa Christian APRN PCP - General Family Medicine 10/21/23 05/26/24 documented as of this encounter
--- OUTSIDE RECORDS SUMMARY | 2024-06-19 08:23 | XMS_ITS | Encounter Summary ---
Author Organization [facility] Address [facility] [place] [address] Care Team Providers Care Community Health Program Representative Name Role Phone Vanessa Christian MAURI Primary Care Provider [phone] Encounter Details Date Type Department Care Team (Latest Contact Info) Description 03/12/2024 1:30 PM EDT - 03/12/2024 11:59 PM EDT Hospital Encounter XRay at [address] [place] [address] Coronary artery disease, unspecified vessel or lesion type, unspecified whether angina present, unspecified whether [place] or transplanted heart Discharge Disposition: Home Social History Tobacco Use Types Packs/Day Years Used Date Smoking Tobacco: Former Cigarettes Smokeless Tobacco: Never Comments:Quit 15 + years ago Alcohol Use Standard Drinks/Week Comments Yes 0 (1 standard drink = 0.6 oz pur e alcohol) rare [facility] Utilities Answer Date Recorded In the past 12 months has e [employer], gas, oil, or water [employer] threatened to shut off services in [...] PM EST Office Visit Cardiology at [address] [place] [address] Neftali Ernandez MD [facility] [place] [address] documented as of this encounter Procedures Procedure Name Priority Date/Time Associated Diagnosis Comments XR CHEST PA AND LATERAL Routine 03/12/2024 1:42 PM EDT Coronary artery disease, unspecified vessel or lesion type, unspecified whether angina present, unspecified whether [place] or transplanted heart documented in this encounter Results * XR Chest PA & Lateral (Generic) (03/12/2024 1:42 PM EDT) WORKSTATION ID [id number] RAD Anatomical Region Laterality Modality Chest N/A [...] have questions please contact the health healthcare corporate account director that requested your imaging first. ? 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 Electronically signed by: Augie Sanchez MD, [facility]([phone]), at 03/13/2024 8:28 AM Zak Farmer MD IMG DX ORDERABLES documented in this encounter Visit Diagnoses Diagnosis Coronary artery disease, unspecified vessel or lesion type, unspecified whether angina present, unspecified whether [place] or transplanted heart documented in this encounter Care Teams Community Health Program Representative Relationship Specialty Start Date End Date Vanessa Christian, MAURI PCP - General Family Medicine 10/21/23 05/26/24 documented as of this encounter
--- OUTSIDE RECORDS SUMMARY | 2024-06-19 08:23 | XMS_ITS | Clinical Summary ---
Author Organization [facility] Address [facility] [place] [address] Care Team Providers Care Cardiovascular Operating Room Nurse Name Role Phone Vanessa Christian Lane DOTSON Primary Care Provider [phone] Allergies No known active allergies Medications Medication [...] the meantime will refer to [facility] at [facility] for further evaluation. Logistics [...] AM EDT Office Visit Cardiology at [address] [place] [address] Neftali Ernandez MD ASCVD (arteriosclerotic [...] 3:00 PM EST Office Visit Cardiology at [address] [place] [address] Neftali Ernandez MD [facility] [place] [address] Health Maintenance Due Date Last [...] series) 06/07/2024 Medical Devices Implanted Type Area Rotary Cutter Feeder Device Identifier Shelf Expiration Date Model / Serial / Lot Cable,Cut,Edg ,Blnt,Ss,3tpr ([id number]) - [id number] Implanted:Qty : 1 on 02/17/2024 by Zak Farmer MD at [facility] IMPLANTS Midline: Chest [employer] - [id number] 09/02/2028 [id number] / / [id number] Valve Coronary Aortic 23mm Tissue Trnscath Biopros Inspiris ([id number]) (Autore[employer]) - [id number] Implanted:Qty : 1 on 02/17/2024 by Zak Farmer MD at [facility] IMPLANTS Heart [employer] - TSAI LI 09/15/2027 [id number] 23MM / [id number] / Procedures Procedure Name Priority Date/Time Associated [...] (Bezet) 367 ms MUSE SYSTEM Calculated P [place] 12 degrees MUSE SYSTEM Calculated R [place] 27 degrees MUSE SYSTEM Calculated T [place] 62 degrees MUSE SYSTEM INTERPRETATION Sinus bradycardia with 1st degree A-V block Otherwise normal ECG When compared with ECG of 12-MAR-2024 14:35, T wave inversion no longer evident in Anterior leads Confirmed by MD Ernandez Daniel ([id number]) on 06/01/2024 8:36:17 AM MUSE SYSTEM 05/27/2024 [...] Status decision made by: Patient Care Teams Cardiovascular Operating Room Nurse Relationship Specialty Start Date End Date Vanessa Christian, MAJOR ASSEMBLY INSPECTOR [address] [place] [address] PCP - General Family Medicine 05/27/24
--- OUTSIDE RECORDS SUMMARY | 2024-06-19 08:23 | XMS_ITS | Encounter Summary ---
Author Organization [facility] Address [facility] [place] [address] Care Team Providers Care Shovel Oiler Name Role Phone Vanessa Christian MAURI Primary Care Provider [phone] Encounter Details Date Type Department Care Team [...] PM EST Office Visit Cardiology at [address] [phone] Neftali Ernandez MD [facility] [place] [address] documented as of this encounter Visit Diagnoses Not on filedocumented in this encounter Care Teams Shovel Oiler Relationship Specialty Start Date End Date Vanessa Christian APRN [address] [place] [address] PCP - General Family Medicine 05/27/24 documented as of this encounter
--- OUTSIDE RECORDS SUMMARY | 2024-06-19 08:23 | XMS_ITS | Referral Summary ---
Author Organization [facility] Address [address] [place] [address] Care Team Providers Care Registered Vascular Technologist (Rvt) Name Role Phone Filidayna Vanessa Sherman NP Primary Care Provider [phone] Social History Tobacco Use Types Packs/Day Years Used Date Smoking Tobacco: Never Assessed Sex and Gender Information Value Date Recorded Sex Assigned at Not on file Gender Identity Not on file Sexual Orientation Not on file Plan of Treatment Not on file Care Teams Registered Vascular Technologist (Rvt) Relationship Specialty Start Date End Date Vanessa Christian NP [address] [place] [address] PCP - General Family Medicine - Primary Care 10/07/23
--- OUTSIDE RECORDS SUMMARY | 2024-06-19 08:23 | XMS_ITS | Clinical Summary ---
Author Organization [facility] Address [address] [place] [address] Care Team Providers Care Articulation Officer Name Role Phone Vanessa Christian NP Primary Care Provider [phone] Social History Tobacco Use Types Packs/Day Years [...] - 1-dose 60+ series) 2019 COVID-19 Vaccine (2022- season) 2024 Care Teams Articulation Officer Relationship Specialty Start Date End Date Vanessa Christian NP [address] [place] [phone] PCP - General Family Medicine - Primary Care 10/07/23
--- OUTSIDE RECORDS SUMMARY | 2024-06-19 08:23 | XMS_ITS | Encounter Summary ---
Author Organization [facility] Address [address] [place] [address] Care Team Providers Care Dermatology Teacher Name Role Phone Vanessa Christian Lane MONCADA Primary Care Provider [phone] Encounter Details Date Type Department Care Team (Late st Contact Info) Description 10/24/2023 Lab Requisition [facility] Medicine - [address] [address] Oscar Nichole MD [address] [place] [id number] Factitial dermatitis Social History Tobacco Use Types [...] management options, if applicable. 10/28/2023 11:24 EST [facility] Final Diagnosis A. SKIN OF JEWISH, LEFT, SHAVE BIOPSY: - Seborrheic keratosis, pigmented. 10/28/2023 11:24 EST [facility] Attestation By the signature below, the attending physician certifies that they have 1) personally conducted a gross and/or microscopic examination of the described specimen(s), and/or personally interpreted the results of laboratory testing of the described specimen(s), and 2) personally rendered or confirmed the above diagnosis. 10/28/2023 11:24 [facility] at [address] Microscopic Description The stratum corneum is thickened by compact and basketweave orthokeratosis with formation of horn pseudocysts. The epidermis is acanthotic with formation of broad and anastomosing trabeculae. The trabeculae are composed of basaloid keratinocytes with round uniform nuclei. The keratinocytes have a variable amount of melanin pigment. 10/28/2023 11:24 [facility] Clinical History Pigmented 2 cm patch; clinical diagnosis code: L98.1 10/28/2023 11:24 [facility] Gross Description A. Received in formalin labelled with proper patient identification (initials P, A) and left alevism is a shave biopsy of an irregular [...] A3. Nora Anderson 10/25/2023 8:47 10/28/2023 11:24 [facility] Performing Lab [facility] 10/28/2023 11:24 [facility] Scanned Images 10/28/2023 11:24 [facility] Tissue SPECIMEN FROM SKIN / Unknown 10/24/2023 14:30 EST 10/24/2023 22:04 EST Oscar Nichole MD PATHOLOGY ORDERABLES [facility] [address] [place] [address] documented in this encounter Visit Diagnoses Diagnosis Factitial dermatitis Dermatitis factitia (artefacta) documented in this encounter Care Teams Dermatology Teacher Relationship Specialty Start Date End Date Vanessa Christian NP [address] [place] [address] PCP - General Family Medicine - Primary Care 10/07/23 documented as of this encounter
--- OUTSIDE RECORDS SUMMARY | 2024-06-19 08:23 | XMS_ITS | Encounter Summary ---
Author Organization [facility] Address [facility] [place] [address] Care Team Providers Care Mva Operator Name Role Phone Vanessa Christian MAURI Primary Care Provider [phone] Encounter Details Date Type Department Care Team (Latest Contact Info) Description 03/12/2024 Travel Social History Tobacco Use Types Packs/Day Years Used Date Smoking Tobacco: Former Cigarettes Smokeless Tobacco: Never Comments:Quit 15 + years ago Alcohol Use Standard Drinks/Week Comments Yes 0 (1 standard drink = 0.6 oz pur e alcohol) rare [facility] Utilities Answer Date Recorded In [...] PM EST Office Visit Cardiology at [address] [phone] Neftali Ernandez MD [facility] [place] [address] documented as of this encounter Visit Diagnoses Not on filedocumented in this encounter Care Teams Mva Operator Relationship Specialty Start Date End Date Vanessa Christian APRN PCP - General Family Medicine 10/21/23 05/26/24 documented as of this encounter
--- OUTSIDE RECORDS SUMMARY | 2024-06-19 08:23 | XMS_ITS | Encounter Summary ---
Author Organization [facility] Address [facility] [place] [address] Care Team Providers Care Sales Trainer Name Role Phone Vanessa Christian Lane DOTSON Primary Care Provider [phone] Reason for Visit * Reason Comments Coronary Artery Disease Aortic Stenosis Encounter Details Date Type Department Care Team (Latest Contact Info) Description 05/27/2024 11:00 AM EDT Office Visit Cardiology at [address] [place] [phone] Neftali Ernandez MD [facility] [place] [address] ASCVD (arteriosclerotic cardiovascular disease); Nonrheumatic aortic valve stenosis Social History Tobacco Use Types Packs/Day Years Used Date Smoking Tobacco: Former Cigarettes Smokeless Tobacco: Never Comments:Quit 15 + years ago Alcohol Use Standard Drinks/Week Comments Yes 0 (1 standard drink = 0.6 oz pur e alcohol) rare [facility] Utilities Answer Date Recorded In the past 12 months has e [employer], gas, oil, or water [employer] threatened to shut off services in your [...] kg/m?? Gen: pleasant male in NAD Cor: uesebia reg, s1/s2 of nl character and amplitude, [...] Office Visit Cardiology at [address] [address] Neftali Ernandez MD [facility] [place] [address] documented as of this encounter Visit Diagnoses Diagnosis ASCVD (arteriosclerotic cardiovascular disease) Unspecified cardiovascular disease Nonrheumatic aortic valve stenosis Aortic valve disorders documented in this encounter Care Teams Sales Trainer Relationship Specialty Start Date End Date Vanessa Christian APRN [address] [place] [address] PCP - General Family Medicine 05/27/24 documented as of this encounter
--- OUTSIDE RECORDS SUMMARY | 2024-06-19 08:23 | XMS_ITS | Encounter Summary ---
Author Organization [facility] Address [facility] [place] [address] Care Team Providers Care Marina Dry Dock Manager Name Role Phone Gino Vanessa Lane DOTSON Primary Care Provider [phone] Encounter Details Date Type Department Care Team (Late st Contact Info) Description 02/24/2024 Orders Only Cardiac Surgery [facility] [place] [phone] Trudi Lester APRN [facility] DR [place] [address] Social History Tobacco Use Types Packs/Day Years Used Date Smoking Tobacco: Former Cigarettes Smokeless Tobacco: Never Comments:Quit 15 + years ago Alcohol Use Standard Drinks/Week Comments Yes 0 (1 standard drink = 0.6 oz pur e alcohol) rare [facility] Utilities Answer Date Recorded In the past 12 months has e [employer]), gas, oil, or water [employer] threatened to shut off services in your [...] PM EST Office Visit Cardiology at [address] [place] [address] Neftali Ernandez MD [facility] [place] [address] documented as of this encounter Visit Diagnoses Not on filedocumented in this encounter Care Teams Marina Dry Dock Manager Relationship Specialty Start Date End Date Vanessa Christian APRN PCP - General Family Medicine 10/21/23 05/26/24 documented as of this encounter
--- OUTSIDE RECORDS SUMMARY | 2024-06-19 08:24 | XMS_ITS | Encounter Summary ---
[place] [address] Care Team Providers Care Lavatory Attendant Name Role Phone Aparna Jordan MAURI Primary Care Provider [phone] Reason for Referral * Diagnostic Test (Routine) - New Request Specialty Diagnoses / Procedures Referred By Contac t Referred To Contact Cardiology Diagnoses S/P AVR Procedures Echocardiogram Transthoracic Neftali Menon PA [facility] [place] [address] [facility] [place] [address] Referral ID Status Reason Start Date Expiration Date Visits Requested Visits Authorized [id number] New Request Specialty Service Requested 02/24/2024 02/23/2025 1 1 * Consultation (Routine) - Authorized Specialty Diagnoses / Procedures Referred By Contac t Referred To Contact Cardiology Diagnoses S/P AVR Hayder Graham MD [facility] [place] [address] Cardiac Rehab, [facility] [address] [place] [address] [place] [address] Referral ID Status Reason Start Date Expiration Date Visits Requested Visits Authorized [id number] Authorized Consult, Test & Treat 02/24/2024 08/22/2024 36 36 * Home Health Care (Routine) - Authorized Specialty Diagnoses / Procedures Referred By Sixto mendoza Referred To Contact Diagnoses S/P AVR Hayder Graham MD [facility] [place] [address] Referral ID Status Reason Start Date Expiration Date Visits Requested Visits Authorized [id number] Authorized Consult, Test & Treat 02/24/2024 08/22/2024 [...] MD [facility] [place] [address] [facility] Referral ID Status Reason Start Date Expiration Date Visits Re quested Visits Authorized [id number] 1 1 Encounter Details Date Type Department Care Team (Latest Contact Info) Description 02/17/2024 5:43 AM EDT - 02/24/2024 11:23 AM EDT Hospital Encounter Heart and Vascular Unit Level 4 [place] [address] Hayder Graham MD [facility] [place] [address] S/P AVR (Primary Dx); Aortic valve stenosis, [...] Patient Age: 63 y.o. Birthdate: 1960 Language: Cameroonian Race: White Ethnicity: Not nor Admit Date: 02/17/2024 Discharge Date: 02/24/24 Attending Physician: Hayder Graham MD Follow-up Recommendations for Providers: Please continue routine management of cardiovascular risk factors including blood pressure, lipids,glucose, etc. Please note any changes to medications. Patient to follow up with PCP, Aparna Jordan APRN, in 1-2 weeks. Patient to follow up with Robotics Systems Engineer, Neftali Ernandez MD , in 2 weeks. Patient to follow up with Cardiac Surgeon, Dr. Hayder Graham, with a chest x-ray, EKG, and Echo. 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 Right jew Past Surgical History: Procedure Laterality Date PRO CABG, ARTERIAL, SINGLE N/A 02/17/2024 @CABG, USING ARTERIAL GRAFT;SINGLE ARTERIAL GRAFT (WRVU 33.75) performed by Hayder Graham MD at [facility] MAIN OR PRO CABG, ARTERY-VEIN, TWO N/A 02/17/2024 @CABG, TWO VENOUS GRAFTS & ARTERIAL GRAFT (WRVU 7.93) performed by Hayder Graham MD at [facility] MAIN OR PRO ENDOSCOPY W/VIDEO-ASST VEIN HARVEST, CABG Left 02/17/2024 ENDOSCOPIC HARVEST VEIN(S) FOR CABG (WRVU 0.31) performed by Hayder Graham MD at [facility] MAIN OR PRO REPLACEMENT PROSTHETIC AORTIC VALVE OPEN W CARDIOPULMONARY BYPASS HOMOGRF/STENT N/A 02/17/2024 @REPLACE AORTIC VALVE, OPEN, W\CPB, W\PROSTHETIC VALVE (WRVU 41.32) performed by Hayder Graham MD at [facility] MAIN OR [...] insufficiency. He has glaucoma. He used to Eventful until about 15 years ago. He has undergone prior herniorrhaphy. 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 Major Procedures/Operations: 02/17/24 s/p avr/cabgx3 CABG x 3 JOSE->LAD SVG->dRCA SVG->OM1 EVH from LLE AVR with a 23 mm Inspiris Bioprosthesis Hospital Course: Karlos Garcia was admitted to [facility] on 02/17/2024 via the Same Day Program. [...] Hayder Graham and/or the Cardiac Surgery Physician Gas Flow Regulator Team may be reached at . Antibiotic [...] Please refer to the card with the Canadian Heart Association Guidelines for more information. You [...] Dr. Hayder Graham. You may use a [place] Track or treadmill but avoid any pulling [...] friends, go to a movie, go to muslim, etc. Heavy activities: No hunting, skiing, jogging, [...] should resume a low fat, low cholesterol, Canadian Heart Association Diet. Driving: No driving until [...] while being managed by your PCP and/or Robotics Systems Engineer. For future medication refills, please refer to your PCP and/or Robotics Systems Engineer after your discharge from our service. Thank you REMOVE CHEST TUBE SUTURES ON OR AFTER 03/02/24 Home oxygen therapy: N/A Follow up appointments: You should follow up with your PCP, Aparna Jordan APRN, in 1-2 weeks. Our office will schedule an appointment with your Robotics Systems Engineer, Neftali Ernandez MD , in 2 weeks. You have an appointment with your Cardiac Surgeon, Dr. Hayder Graham, 4 weeks with a chest x-ray, EKG, and Echo before your appointment. Cardiac Rehabilitation: Karlos Garcia was seen regarding participation in the outpatient Phase 2Cardiac Rehabilitation at [facility]. The patient agrees to a referral to this program. The referral will be sent at discharge and the patient should be contacted by the Program within 1- 2 weeks from discharge. Future Appointments and Orders Future Orders Complete By Expires Echocardiogram Transthoracic [74037 CPT(R)] 03/26/2024 09/25/2024 Process Instructions: Scheduling Instructions: Questions: Where will study be performed?: [facility] Clinics Does the patient have Congenital Heart Disease?: Does patient require sedation?: Sedation rationale: XR Chest PA & Lateral (Generic) [47680 12610 Custom] 03/26/2024 09/25/2024 Process Instructions: Scheduling Instructions: Questions: Portable exam?: Reason for exam and clinical history: s/p avr/cabg Clinical information / jerome questions for radiologist: Stat read required?: Date of injury if applicable: Requested Time: Where will study be performed?: [facility] Radiology Referral to Cardiac Rehab [IMK606 Custom] As directed Process Instructions: If no progress note charted, please enter Clinical details in comments. Scheduling Instructions: Questions: My question or request is: s/p AVR/CABG. Cardiac rehab at [facility]. Referral to Home Health [REF34 Custom] As directed Process Instructions: If no progress note charted, please enter Clinical details in comments. Scheduling Instructions: Comments: Please evaluate Karlos Garcia for admission to Home Health. [address] Phone Number: Date of : 1960 Inpatient DOCUMENTATION FOR VNA SERVICES (INCLUDING THOSE PATIENTS WITH MEDICARE COVERAGE REQUIRING HOME VNA SERVICES AND/OR HOSPICE SERVICES) PATIENT'S LOCATION: Karlos Garcia [address] [employer] [phone] Box Machine Operator's Name: self/family In discussion with the attending physician, it is certified that this patient is under their care and that they, or a Nurse Practitioner, or Physician Gas Flow Regulator who is working directly with them, hada [...] for services as follows: HOME HEALTH AGENCY: [facility] [address] [place] [address] RN orders: Cardiopulmonary assessment, incisional assessment, assess [...] issues please call the Cardiology Office at [phone] FOR MEDICARE ONLY: (please delete this section [...] APRN [address] / [place] [address] . All VNA agencies which cover the area of patient's residence have been reviewed, either verbally or in writing, and patient/family have chosen the home health care agency noted. Questions: Disciplines Requested: Nursing Physical Therapy Arrangements for VNA/home care: As above. Signed: NEFTALI MENON PA-C [facility] Section of Cardiac Surgery [facility] [address] FAX [phone] Date: 02/24/2024 CC: Aparna Jordan, MAURI Jordan, Aparna Sherman APRN [address] [place] [address] documented in this encounter Discharge Instructions * [...] Hayder Graham and/or the Cardiac Surgery Physician Gas Flow Regulator Team may be reached at . Antibiotic [...] Please refer to the card with the Canadian Heart Association Guidelines for more information. You [...] Dr. Hayder Graham. You may use a [place] Track or treadmill but avoid any pulling [...] friends, go to a movie, go to muslim, etc. Heavy activities: No hunting, skiing, jogging, [...] should resume a low fat, low cholesterol, Canadian Heart Association Diet. Driving: No driving until [...] while being managed by your PCP and/or Robotics Systems Engineer. For future medication refills, please refer to your PCP and/or Robotics Systems Engineer after your discharge from our service. Thank you REMOVE CHEST TUBE SUTURES ON OR AFTER 03/02/24 Home oxygen therapy: N/A Follow up appointments: You should follow up with your PCP, Aparna Jordan APRN, in 1-2 weeks. Our office will schedule an appointment with your Robotics Systems Engineer, Neftali Ernandez MD , in 2 weeks. You have an appointment with your Cardiac Surgeon, Dr. Hayder Graham, 4 weeks with a chest x-ray, EKG, and Echo before your appointment. Cardiac Rehabilitation: Karlos Garcia was seen regarding participation in the outpatient Phase 2Cardiac Rehabilitation at [facility]. The patient agrees to a referral to [...] 0600 and on the weekends please page [phone]. * Eric Barahona PA - 02/23/2024 9:27 [...] 0600 and on the weekends please page [phone]. * Tiffanie Owens - 02/22/2024 2:48 PM [...] Pt reports his dtr is coming from [place] to stay upon d/c for 10 days. 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 He works Precautions/Special Considerations: STERNAL [...] LRAD and supervision Time IN / OUT: 9295-4372 Total Time: 30 minutes; TEFx2 Tiffanie Owens Pager: [phone] Physical Therapy Inpatient Rehabilitation Department * Romeo [...] 0600 and on the weekends please page [phone]. * Kelley Hinson, COVER MAKER - 02/21/2024 10:15 AM EDT Physical Therapy [...] Pt reports his dtr is coming from [place] to stay upon d/c for 10 days. 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 male with [...] 0600 and on the weekends please page [phone]. * Kelley Hinson PTA - 02/20/2024 3:32 PM EDT 02/20/24 5489 Evaluation & Treatment Document Type contact Total Minutes, Physical Therapy 0 Comment, Session Not Performed Checked in w/ pt this PM for ongoing PT services, pt politely declined, stating he had been dealing w/ nausea all day, made plan to see him tomorrow morning, will f/u at that time Kelley Hinson PTA Pager: [phone] Physical Therapy Inpatient Rehab Department * Louisa [...] 0600 and on the weekends please page [phone]. * Maris Benavides, PT - 02/19/2024 11:22 [...] Pt reports his dtr is coming from [place] to stay upon d/c for 10 days. 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 Precautions/Special Considerations: STERNAL [...] outlined inthis evaluation. MARIS BENAVIDES, PT Pager: [phone] Physical Therapy Inpatient Rehabilitation Department Time IN / OUT: 3029-6073 Total Time: 38 (eval) minutes; * Antonio [...] 0600 and on the weekends please page [phone]. * Minnie Begum PA - 02/18/2024 8:25 [...] 0600 and on the weekends please page [phone]. * Kim Ha RCP - 02/17/2024 2:25 [...] plan since last visit. Hayder Graham MD [phone] Source Note - Hayder Graham MD - [...] insufficiency. He has glaucoma. He used to [employer] until about 15 years ago. He has [...] given written informed consent. Hayder Graham MD [phone] * Hayder Graham MD - 02/17/2024 7:00 [...] given written informed consent. Hayder Graham MD [phone] documented in this encounter Miscellaneous Notes * [...] information for follow-up Home Health & Hospice, [address] [place] [address] Cardiac Rehab, [address] [place] [address] Transportation: family or friend will provide Functional status prior to admission: Independent Home Environment: Others in the home: alone. Current Living Arrangements: home/apartment/condo. Accessibility Concerns:a few steps to enter 1 floor home. Current Functional Ability: Assistive Person and Equipment DME used at home: none DME Needed at Discharge: N/A Patient is insured through: Primary Insurance: [facility] Payor: [facility] / Plan: [facility] PPO / Product Type: *No Product [...] pain managed with scheduled Tylenol. Worked with [employer]. Ambulated in the roque multiple times during [...] anticipated Patient is insured through: Primary Insurance: [employer] Payor: [employer] / Plan: [facility] PPO / Product Type: *No Product type* / Secondary Insurance: N/A Last Physical Therapy Recommendation: home with home health (Str coming to stay for a week or two upon d/c) with to be determined (owns rolling walker, shower seat) Plan for discharge is: Home w/ Services Outpatient Agency/Support Group Needs: Homecare agency Home Health Services: Physical Therapy, Registered Nurse Agency Referrals: [facility]. [address] [place] [address] Transportation: family or friend will provide Barriers to discharge: Discharge planning Plan going forward: Service Care Management will continue to follow and assist with discharge planning and coordination of care as indicated. Anticipated Date of Discharge: 02/22/2024 Rhett Bell RN RN/CM - Cellphone: [phone] Pager: [phone] Covering Service RN/CM * Plan of Care [...] Yang RN - 02/19/2024 10:44 AM EDT [facility]ATION Karlos Garcia was seen today regarding participation in the outpatient Phase 2 Cardiac Rehabilitation at [facility]. The patient agrees to a referral to [...] Hypertension 08/14/2023 Nevus of face 09/26/2023 Right jew Hospitalizations Within the Past 30 Days: no previous admission in last 30 days Current Decision-Making Capacity: Self If AD's have not been completed the following surrogate would be surrogate decision maker per [place] surrogate decision making law. (Only good for 180 days) Any patient receiving care in [place] must abide by [place] law. The hierarchy for surrogate decision making [...] steady place to sleep or slept in [facility] (including now)?: No In the past 12 months has the [place], gas, oil, or water [employer] threatened to shut off services in [...] as: [address] [facility] [address] Physical address: [address] [facility], [address] Social & Family Supports: All names listed [...] Information: none noted Health/Prescription Coverage: Primary Insurance: [facility] Payor: [facility] / Plan: [facility] PPO / Product Type: *No Product type* / Secondary Insurance: N/A ; Prescription Coverage: Yes Preferred Pharmacy: [id number] [address] Status: Patient is a : No Primary Care Provider confirmed: Aparna Jordan, WOOL BUYER [phone] Patient/Caregiver Goals of Treatment: dc to home Potential Needs for Transition of Care: home health care Agency Referrals: I have met with the patient to: discuss discharge planning needs. provide the [facility], Office of Care Management letter from the Carbon Brusher Assembler pertaining to rehab referrals. provide a letter describing our affiliations within the [facility] and educate about their right to choose where referrals are sent. provide a list of Home Health Agencies / Durable Medical Equipment vendors which serve their preferred geographic area. provided patient with [facility] Star Quality Rating handout. They have requested referrals to: [facility] [address] [place] [address] Note routed to a Industrial Chemist who will communicate referrals to facilities and [...] daughter, Cielo, will be coming in from [place] on 02/18, to stay with him , [...] Reina Greene RN CM, BSN, CMGT- Ext [phone] * Plan of Care - Binta Trinidad [...] Operative Note Patient Name: Karlos Garcia : [id number] MR#: [id number] Case Date: 02/17/2024 Surgeon: Surgeon(s) and Role: * Hayder Graham MD - Primary * Neftali Menon PA - Physician Gas Flow Regulator Preoperative diagnosis: CAD Postoperative diagnosis: CAD, intraoperative [...] mL Drains: Mediastinal and Left pleural Disposition: [facility] Condition: doing well without problems Attestation: Case Date: 02/17/2024 I performed this procedure without the involvement of a resident. HAYDER GRAHAM MD 02/17/2024 * Op Note - Hayder Graham MD - 02/17/2024 8:20 AM EDT [facility] Operative Note Patient Name: Karlos Garcia : [id number] MR#: [id number] Case Date: 02/17/2024 Surgeon: Surgeons and Role: * Hayder Graham MD - Primary * Neftali Menon PA - Physician Gas Flow Regulator Preoperative diagnosis: CAD Postoperative diagnosis: CAD, intraoperative [...] mL Drains: Mediastinal and Left pleural Disposition: [facility] Procedure Description: The patient was brought to [...] not need to include opening and closing). HADYER GRAHAM MD 03/02/2024 documented in this encounter Plan of Treatment Upcoming Encounters Date Type Department Care Team (Late st Contact Info) Description 11/30/2024 3:00 PM EST Office Visit Cardiology at [address] [place] [address] Neftali Ernandez MD [facility] [place] [address] Scheduled Orders Name Type Priority Associated Diagnoses [...] Aortic Valve Open W Cardiopulmonary Bypass Homogrf/Stent (06969) Yes 02/17/2024 7:28 AM EDT CAD Cabg, Artery-Vein, Two ([id number]) Yes 02/17/2024 7:28 AM EDT CAD Cabg, Arterial, Single ([id number]) Yes 02/17/2024 7:28 AM EDT CAD Endoscopy W/Video-Asst Vein Ducor, Cabg ([id number]) Yes 02/17/2024 7:28 AM EDT CAD POCT GLUCOSE Routine 02/17/2024 6:38 AM EDT TRANSESOPHAGEAL ECHOCARDIOGRAM IN THE OR Routine 02/17/2024 6:33 AM EDT Aortic valve stenosis, etiology of cardiac valve disease unspecified LAB SCAN 02/17/2024 12:00 AM EDT IMPLANTABLE DEVICES SCAN 02/17/2024 12:00 AM EDT documented in this encounter Results * Potassium (02/24/2024 4:42 AM EDT) Potassium 4.0 3.5 - 5.0 mmol/L [facility] [...] Lab Hayder Graham MD CHEMISTRY ORDERABLE S [facility] [place] [address] * (ABNORMAL) Basic Metabolic Panel (non-fasting) (02/23/2024 4:24 AM EDT) Glucose 117 65 - 199 mg/dL [facility] Comment:Diabetes: >=200 mg/d L plus symptoms Blood Urea Nitrogen 18 10 - 20 mg/dL [facility] Creatinine 0.71(L) 0.80 - 1.50 mg/dL [facility] Sodium 138 135 - 145 mmol/L [facility] Potassium 4.4 3.5 - 5.0 mmol/L [facility] Comment: Please note: ??Patients with WBC >100,000 may have falsely elevated Potassium levels. ??For accurate Potassium quantification in these patients send serum separator tube (gold top) for subsequent determinations. ??Contact the Clinical Chemistry Laboratory if there are any questions. Chloride 101 98 - 107 mmol/L [facility] Carbon Dioxide 26 22 - 31 mmol/L [facility] Anion Gap 11 5 - 15 mmol/L [facility] Calcium 8.8 8.5 - 10.5 mg/dL [facility] Est Glomerular Filtration Rate 102 >=60 mL/min/1. 73 m?? [facility] [...] In Lab Romeo Carpio MD CHEMISTRY ORDERABLES [facility] [place] [address] * Potassium (02/22/2024 4:30 AM EDT) Potassium 3.5 3.5 - 5.0 mmol/L [facility] [...] Lab Hayder Graham MD CHEMISTRY ORDERABLE S [facility] [place] [address] * (ABNORMAL) Basic Metabolic Panel (non-fasting) (02/21/2024 9:45 AM EDT) Glucose 123 65 - 199 mg/dL [facility] Comment:Diabetes: >=200 mg/d L plus symptoms Blood Urea Nitrogen 22(H) 10 - 20 mg/dL [facility] Creatinine 0.78(L) 0.80 - 1.50 mg/dL [facility] Sodium 140 135 - 145 mmol/L [facility] Potassium 3.9 3.5 - 5.0 mmol/L [facility] Comment: Please note: ??Patients with WBC >100,000 may have falsely elevated Potassium levels. ??For accurate Potassium quantification in these patients send serum separator tube (gold top) for subsequent determinations. ??Contact the Clinical Chemistry Laboratory if there are any questions. Chloride 100 98 - 107 mmol/L [facility] Carbon Dioxide Not Perf 22 - 31 [facility] Comment:Add-on request. Samp le too old to perform test. Anion Gap Unable to Calculate 5 - 15 mmol/L [facility] Calcium 8.6 8.5 - 10.5 mg/dL [facility] Est Glomerular Filtration Rate 100 >=60 mL/min/1 .73 m?? [facility] Comment: This [...] Carpio MD CHEMISTRY ORDERABLES Performing Organization Address City/[facility]/ZIP Co de Phone Number [facility] [place] [address] * Lactate, whole blood, send to lab ([facility]) (02/21/2024 9:45 AM EDT) [facility] Lactate WB 2.0 0.5 - 2.2 mmol/L [facility] Blood 02/21/2024 9:45 AM EDT 02/21/2024 9:52 AM EDT Narrative Resulting Agency Comment Spec In Lab Hayder Graham MD CHEMISTRY ORDERABLE S Performing Organization Address City/[facility]/ZIP Co de Phone Number [facility] [place] [address] * (ABNORMAL) Hepatic Function Panel (02/21/2024 9:45 AM EDT) [facility] Protein, Total 5.7(L) 6.1 - 8.0 g/dL [facility] Albumin 3.3 3.2 - 5.2 g/dL [facility] Aspartate Aminotransferase 13 0 - 39 unit/L [facility] Alanine Aminotransferase 16 0 - 55 unit/L [facility] Alkaline Phosphatase 63 40 - 130 unit/L [facility] Bilirubin, Total 0.6 0.2 - 1.3 mg/dL [facility] Bilirubin, Direct 0.2 0.0 - 0.3 mg/dL [facility] Blood 02/21/2024 9:45 AM EDT 02/21/2024 9:52 AM EDT Narrative Resulting Agency Comment Spec In Lab Hayder Graham MD CHEMISTRY ORDERABLE S Performing Organization Address City/[facility]/ZIP Co de Phone Number [facility] [place] [address] * Lipase (02/21/2024 9:45 AM EDT) Lipase 56 0 - 60 unit/L [facility] Blood 02/21/2024 9:45 AM EDT 02/21/2024 9:52 AM EDT Narrative Resulting Agency Comment Spec In Lab Hayder Graham MD CHEMISTRY ORDERABLE S Performing Organization Address [facility] Co de Phone Number [facility] [place] [address] * Amylase (02/21/2024 9:45 AM EDT) Amylase 69 28 - 100 unit/L [facility] Blood 02/21/2024 9:45 AM EDT 02/21/2024 9:52 AM EDT Narrative Resulting Agency Comment Spec In Lab Hayder Graham MD CHEMISTRY ORDERABLE S Performing Organization Address [facility] Co de Phone Number [facility] [place] [address] * Potassium (02/21/2024 3:08 AM EDT) Potassium 3.8 3.5 - 5.0 mmol/L [facility] [...] Lab Hayder Graham MD CHEMISTRY ORDERABLE S [facility] [place] [address] * XR Chest PA & Lateral (Generic) (02/20/2024 10:19 AM EDT) WORKSTATION ID [id number] RAD Anatomical Region Laterality Modality Chest N/A [...] Rogerio Cruz MD, [facility] ??([phone]), at 02/20/2024 1:11 PM Narrative 02/20/2024 1:11 PM EDT EXAMINATION: XR CHEST PA AND LATERAL (GENERIC) CLINICAL HISTORY: s/p AVR/CABGx3 TECHNIQUE: PA and lateral views of the chest COMPARISON: 02/17/2024 FINDINGS: Support devices: Interval removal of Allenton-Kaila catheter, endotracheal tube and mediastinal chest tubes The cardiac silhouette is stable status post median sternotomy, CABG and aortic valve replacement. There are small pleural effusions. No pneumothorax. Procedure Note Rogerio Cruz MD - 02/20/2024 EXAMINATION: XR CHEST PA AND LATERAL (GENERIC) CLINICAL HISTORY: s/p AVR/CABGx3 TECHNIQUE: PA and lateral views of the chest COMPARISON: 02/17/2024 FINDINGS: Support devices: Interval removal of Allenton-Kaila catheter, endotracheal tubeand mediastinal chest tubes The [...] development manager that requested your imaging first. Hayder Graham MD IMG DX ORDERABLES * Scan, Peripheral Blood (02/20/2024 4:23 AM EDT) Pathologist [facility] Plat estimate Decreased [facility] RBC Morphology Normal [facility] Blood 02/20/2024 4:23 AM EDT 02/20/2024 4:42 AM EDT Narrative Resulting Agency Comment Spec In Lab Minnie FRENCH HEMATOLOGY CECILIO ALEMAN Performing Organization Address City/State/[facility] Co de Phone Number [facility] [place] [address] * (ABNORMAL) Differential, Automated (02/20/2024 4:23 AM EDT) [facility] Neutrophil % 81.7 % [facility] Neutrophil Absolute 10.37(H) 1.70 - 6.10 x10(3)/mc L [facility] Lymph % 7.4 % [facility] Lymphocytes Abs 0.9 0.9 - 3.2 x10(3)/mc L [facility] Monocyte % 9.7 % [facility] Monocyte Abs 1.2(H) 0.3 - 0.9 x10(3)/mc L [facility] Eos % 0.1 % [facility] Eosinophils Abs 0.0 0.0 - 0.4 x10(3)/[facility] Basophil % 0.2 % [facility] Baso Absolute 0.0 0.0 - 0.1 x10(3)/[facility] Immature Gran % 0.90 % [facility] Comment: Immature granulocytes(IG's)percentage and absolute count will include metamyelocytes, myelocytes, and promyelocytes. Blood smears from CBCs yielding IG's will be scanned manually for concordance. If this scan disagrees with the automated IG or if promyelocytes are noted, a manual differential will be performed. Immature Gran Absolute 0.12(H) 0.00 - 0.04 x10(3)/[facility] Blood 02/20/2024 4:23 AM EDT 02/20/2024 4:42 AM EDT Narrative Resulting Agency Comment Spec In Lab Minnie FRENCH HEMATOLOGY CECILIO ALEMAN [facility] [place] [address] * (ABNORMAL) Hemogram (02/20/2024 4:23 AM EDT) White Blood Cell 12.7(H) 4.0 - 9.5 x10(3)/[facility] Red Blood Cell 4.26(L) 4.58 - 5.54 x10(6)/[facility] Hemoglobin 12.3(L) 13.7 - 16.5 g/dL [facility] Hematocrit 37.1(L) 40.5 - 48.5 % [facility] Mean Cell Volume 87.1 82.9 - 93.1 fL [facility] Mean Cell Hemoglobin 28.9 27.5 - 32.1 pg [facility] Mean Cell Hemoglobin Concentration 33.2 32.0 - 35.7 g/dL [facility] Platelet 88(L) 145 - 357 x10(3)/mc L [facility] RDW Standard Deviation 43.5 36.0 - 45.0 fL [facility] RDW coefficient of variation 13.7 11.4 - 13.8 % [facility] Mean Platelet Volume 10.2 7.6 - 12.9 fL [facility] NRBC% auto 0.0 % [facility] NRBC Absolute 0.000 0.000 - 0.000 x10(3)/mc L [facility] Blood 02/20/2024 4:23 AM EDT 02/20/2024 4:42 AM EDT Narrative Resulting Agency Comment Spec In Lab Minnie FRENCH HEMATOLOGY CECILIO ALEMAN [facility] [place] [address] * (ABNORMAL) Basic Metabolic Panel (non-fasting) (02/20/2024 4:23 AM EDT) Glucose 113 65 - 199 mg/dL [facility] Comment:Diabetes: >=200 mg/d L plus symptoms Blood Urea Nitrogen 20 10 - 20 mg/dL [facility] Comment:result rechecked-KS Creatinine 0.71(L) 0.80 - 1.50 mg/dL [facility] Sodium 135 135 - 145 mmol/L [facility] Potassium 3.9 3.5 - 5.0 mmol/L [facility] Comment: Please note: ??Patients with WBC >100,000 may have falsely elevated Potassium levels. ??For accurate Potassium quantification in these patients send serum separator tube (gold top) for subsequent determinations. ??Contact the Clinical Chemistry Laboratory if there are any questions. Chloride 102 98 - 107 mmol/L [facility] Carbon Dioxide 25 22 - 31 mmol/L [facility] Anion Gap 8 5 - 15 mmol/L [facility] Calcium 8.7 8.5 - 10.5 mg/dL [facility] Comment:result rechecked-KS Est Glomerular Filtration Rate 102 >=60 mL/min/1. 73 m?? [facility] [...] CHEMISTRY ORDERABLE S Performing Organization Address [facility] Co de Phone Number [facility] [place] [address] * Potassium (02/19/2024 3:57 AM EDT) [facility] Potassium 4.3 3.5 - 5.0 mmol/L [facility] [...] CHEMISTRY ORDERABLE S Performing Organization Address [facility]/ZIP Co de Phone Number [facility] [place] [address] * POCT Glucose (02/18/2024 8:24 AM EDT) Glucose, POC 157 65 - 199 mg/dL [facility] Comment: Supplemental ranges: <140 mg/dL before meals <180 mg/dL all other times of the day Blood 02/18/2024 8:24 AM EDT 02/18/2024 8:24 AM EDT Hayder Graham MD POINT OF CARE TEST ORDERABLES Performing Organization Address City/[facility]/ZIP Co de Phone Number [facility] [place] [address] * Scan, Peripheral Blood (02/18/2024 1:40 AM EDT) [facility] Plat estimate Decreased [facility] RBC Morphology Normal [facility] Blood 02/18/2024 1:40 AM EDT 02/18/2024 1:56 AM EDT Narrative Resulting Agency Comment Spec In Lab Neftali FRENCH HEMATOLOGY ORDER OLE Performing Organization Address City/[facility]/ZIP Co de Phone Number [facility] [place] [address] * (ABNORMAL) Differential, Automated (02/18/2024 1:40 AM EDT) [facility] Neutrophil % 87.1 % [facility] Neutrophil Absolute 15.03(H) 1.70 - 6.10 x10(3)/mc L [facility] Lymph % 3.0 % [facility] Lymphocytes Abs 0.5(L) 0.9 - 3.2 x10(3)/mc L [facility] Monocyte % 9.1 % [facility] Monocyte Abs 1.6(H) 0.3 - 0.9 x10(3)/mc L [facility] Eos % 0.0 % [facility] Eosinophils Abs 0.0 0.0 - 0.4 x10(3)/mc L [facility] Basophil % 0.2 % [facility] Baso Absolute 0.0 0.0 - 0.1 x10(3)/mc L [facility] Immature Gran % 0.60 % [facility] Comment: Immature granulocytes(IG's)percentage and absolute count will include metamyelocytes, myelocytes, and promyelocytes. Blood smears from CBCs yielding IG's will be scanned manually for concordance. If this scan disagrees with the automated IG or if promyelocytes are noted, a manual differential will be performed. Immature Gran Absolute 0.10(H) 0.00 - 0.04 x10(3)/ L [facility] Blood 02/18/2024 1:40 AM EDT 02/18/2024 1:56 AM EDT Narrative Resulting Agency Comment Spec In Lab Neftali FRENCH HEMATOLOGY ORDER OLE [facility] [place] [address] * (ABNORMAL) Hemogram (02/18/2024 1:40 AM EDT) White Blood Cell 17.2(H) 4.0 - 9.5 x10(3)/ L [facility] Red Blood Cell 4.71 4.58 - 5.54 x10(6)/mc L [facility] Hemoglobin 13.7 13.7 - 16.5 g/dL [facility] Hematocrit 39.2(L) 40.5 - 48.5 % [facility] Mean Cell Volume 83.2 82.9 - 93.1 fL [facility] Mean Cell Hemoglobin 29.1 27.5 - 32.1 pg [facility] Mean Cell Hemoglobin Concentration 34.9 32.0 - 35.7 g/dL [facility] Platelet 147 145 - 357 x10(3)/mc L [facility] RDW Standard Deviation 39.9 36.0 - 45.0 fL [facility] RDW coefficient of variation 13.2 11.4 - 13.8 % [facility] Mean Platelet Volume 9.9 7.6 - 12.9 fL [facility] NRBC% auto 0.0 % [facility] NRBC Absolute 0.000 0.000 - 0.000 x10(3)/mc L [facility] Blood 02/18/2024 1:40 AM EDT 02/18/2024 1:56 AM EDT Narrative Resulting Agency Comment Spec In Lab Neftali FRENCH HEMATOLOGY ORDER OLE [facility] [place] [address] * (ABNORMAL) Basic Metabolic Panel (non-fasting) (02/18/2024 1:40 AM EDT) Glucose 176 65 - 199 mg/dL [facility] Comment:Diabetes: >=200 mg/d L plus symptoms Blood Urea Nitrogen 10 10 - 20 mg/dL [facility] Creatinine 0.65(L) 0.80 - 1.50 mg/dL [facility] Sodium 135 135 - 145 mmol/L [facility] Potassium 4.2 3.5 - 5.0 mmol/L [facility] Comment: Please note: ??Patients with WBC >100,000 may have falsely elevated Potassium levels. ??For accurate Potassium quantification in these patients send serum separator tube (gold top) for subsequent determinations. ??Contact the Clinical Chemistry Laboratory if there are any questions. Chloride 106 98 - 107 mmol/L [facility] Carbon Dioxide 20(L) 22 - 31 mmol/L [facility] Anion Gap 9 5 - 15 mmol/L [facility] Calcium 7.6(L) 8.5 - 10.5 mg/dL [facility] Est Glomerular Filtration Rate 105 >=60 mL/min/1. 73 m?? [facility] [...] Lab Hayder Graham MD CHEMISTRY ORDERABLE S [facility] [place] [address] * (ABNORMAL) Troponin (02/18/2024 1:40 AM EDT) Troponin-T, High Sensitivity 342(H) <=22 ng/L [facility] Comment: This patient's troponin [...] can be found in the [facility] Laboratory Test Catalog Troponin - [facility] Laboratory Test Catalog Reference: Fourth [place]if[place] Definition of Myocardial Infarction. Journal of the [employer] College [employer] 2018;72:6336-3595 Blood 02/18/2024 1:40 AM EDT 02/18/2024 1:56 AM EDT Narrative Resulting Agency Comment Spec In Lab Hayder Graham MD CHEMISTRY ORDERABLE S [facility] [place] [address] * POCT Glucose (02/17/2024 8:13 PM EDT) Glucose, POC 142 65 - 199 mg/dL [facility] Comment: Supplemental ranges: <140 mg/dL before meals <180 mg/dL all other times of the day Blood 02/17/2024 8:13 PM EDT 02/17/2024 8:13 PM EDT Hayder Graham MD POINT OF CARE TEST ORDERABLES Performing Organization Address [facility]/ZIP Co de Phone Number [facility] [place] [address] * POCT Glucose (02/17/2024 5:42 PM EDT) Glucose, POC 160 65 - 199 mg/dL [facility] Comment: Supplemental ranges: <140 mg/dL before meals <180 mg/dL all other times of the day Blood 02/17/2024 5:42 PM EDT 02/17/2024 5:42 PM EDT Hayder Graham MD POINT OF CARE TEST ORDERABLES Performing Organization Address City/[facility]/ZIP Co de Phone Number [facility] [place] [address] * Hemoglobin (02/17/2024 5:42 PM EDT) Hemoglobin 13.7 13.7 - 16.5 g/dL [facility] Blood 02/17/2024 5:42 PM EDT 02/17/2024 6:10 PM EDT Narrative Resulting Agency Comment Spec In Lab Hayder Graham MD HEMATOLOGY ORDERABL ES Performing Organization Address [facility] Co de Phone Number [facility] [place] [address] * Potassium (02/17/2024 5:42 PM EDT) Potassium 4.3 3.5 - 5.0 mmol/L [facility] [...] CHEMISTRY ORDERABLE S Performing Organization Address [facility] de Phone Number [facility] [place] [address] * (ABNORMAL) BLOOD GAS 2 ARTERIAL (02/17/2024 4:18 PM EDT) pH, Arterial 7.34(L) 7.35 - 7.45 [facility] PCO2, Arterial 40 35 - 45 mmHg [facility] PO2, Arterial 78(L) 85 - 104 mmHg [facility] Bicarbonate, Arterial 20.8 20.0 - 26.0 mmol/L [facility] Base Excess, Arterial -5.1(L) -3.0 - 3.0 mmol/L [facility] Hgb Blood Gas 14.6 13.7 - 16.5 g/dL [facility] Oxyhemoglobin, Arterial 93.0(L) 94.0 - 97.0 % [facility] Carboxyhemoglob in, Arterial 0.3 % [facility] Comment: Nonsmokers: 0.5-1.5% COHB Smokers: Variable, but usually less than 10% Toxic: 20-30% COHB Lethal: Greater than 60% COHB Methemoglobin, Arterial 0.8 <=1.5 % [facility] Na Whole Blood 136 135 - 145 mmol/L [facility] K Whole Blood 4.1 3.5 - 5.0 mmol/L [facility] Comment: Please note: Patients with WBC >100,000 may have falsely elevated Potassium levels. Contact the Clinical Chemistry Laboratory if there are any questions. ICa Whole Blood 1.10(L) 1.15 - 1.33 mmol/L [facility] Comment: Note: ??Total bilirubin higher than 20 mg/dL may lead to falsely low ionized calcium. CL Whole Blood 105 98 - 107 mmol/L [facility] Gluc Whole Bld 159 65 - 199 mg/dL [facility] Comment:Diabetes: >=200 mg/d L plus symptoms. Lactate WB 1.2 0.5 - 2.2 mmol/L [facility] FIO2 Art 40 % [facility] PF Ratio Art 195 [facility] Blood 02/17/2024 4:18 PM EDT 02/17/2024 4:18 PM EDT Hayder Graham MD POINT OF CARE TEST ORDERABLES Performing Organization Address City/State/[facility] Co de Phone Number [facility] [place] [address] * XR Chest One View (02/17/2024 1:44 PM EDT) WORKSTATION ID [id number] RAD Anatomical Region Laterality Modality Chest N/A Digital Radiogra phy Impressions 02/17/2024 2:12 PM EDT 1. ??No definite pleural fluid collection or pneumothorax. 2. ??Right IJ Allenton-Kaila catheter tip terminates in a descending branch [...] Denzel Hankins MD, [facility] ??([phone]), at 02/17/2024 2:12 PM Narrative 02/17/2024 2:12 PM EDT EXAMINATION: XR CHEST ONE VIEW CLINICAL HISTORY: s/p avr/cabg eval effusions TECHNIQUE: 1 view of the chest COMPARISON: Chest x-ray 01/09/2024, chest CT 02/03/2024 FINDINGS: ET tube tip terminates 5.2 cm above the carlos. Right IJ Allenton-Kaila catheter tip terminates in a descending branch [...] 5.2 cm above the carlos. Right IJ Allenton-Ganzcatheter tip terminates in a descending branch of [...] fluid collection or pneumothorax. 2. Right IJ Allenton-Kaila catheter tip terminates in a descending branch [...] by: Denzel Hankins MD, [facility]([phone]), at 02/17/2024 2:12 PM Hayder Graham MD IMG DX ORDERABLES * (ABNORMAL) BLOOD GAS 2 ARTERIAL (02/17/2024 1:31 PM EDT) pH, Arterial 7.35 7.35 - 7.45 [facility] PCO2, Arterial 39 35 - 45 mmHg [facility] PO2, Arterial 320(H) 85 - 104 mmHg [facility] Bicarbonate, Arterial 21.4 20.0 - 26.0 mmol/L [facility] Base Excess, Arterial -4.2(L) -3.0 - 3.0 mmol/L [facility] Hgb Blood Gas 14.1 13.7 - 16.5 g/dL [facility] Oxyhemoglobin, Arterial 97.9(H) 94.0 - 97.0 % [facility] Carboxyhemoglob in, Arterial 0.3 % [facility] Comment: Nonsmokers: 0.5-1.5% COHB Smokers: Variable, but usually less than 10% Toxic: 20-30% COHB Lethal: Greater than 60% COHB Methemoglobin, Arterial 0.7 <=1.5 % [facility] Na Whole Blood 137 135 - 145 mmol/L [facility] K Whole Blood 4.2 3.5 - 5.0 mmol/L [facility] Comment: Please note: Patients with WBC >100,000 may have falsely elevated Potassium levels. Contact the Clinical Chemistry Laboratory if there are any questions. ICa Whole Blood 1.13(L) 1.15 - 1.33 mmol/L [facility] Comment: Note: ??Total bilirubin higher than 20 mg/dL may lead to falsely low ionized calcium. CL Whole Blood 108(H) 98 - 107 mmol/L [facility] Gluc Whole Bld 136 65 - 199 mg/dL [facility] Comment:Diabetes: >=200 mg/d L plus symptoms. Lactate WB 1.1 0.5 - 2.2 mmol/L [facility] FIO2 Art 100 % [facility] PF Ratio Art 320 [facility] Blood 02/17/2024 1:31 PM EDT 02/17/2024 1:31 PM EDT Hayder Graham MD POINT OF CARE TEST ORDERABLES Performing Organization Address City/State/[facility] Co de Phone Number [facility] [place] [address] * (ABNORMAL) Coox2 (02/17/2024 1:21 PM EDT) pO2, Coox 44 mmHg [facility] Hgb Blood Gas 13.1(L) 13.7 - 16.5 g/dL [facility] Oxyhemoglobin, Coox 76.4 % [facility] Carboxyhemoglo bin, Coox 0.3 % [facility] Comment: Nonsmokers: 0.5-1.5% COHB Smokers: Variable, but usually less than 10% Toxic: 20-30% COHB Lethal: Greater than 60% COHB Methemoglobin, Coox 0.8 <=1.5 % [facility] Source Coox Mixed Venous [facility] Blood 02/17/2024 1:21 PM EDT 02/17/2024 1:21 PM EDT Hayder Graham MD POINT OF CARE TEST ORDERABLES [facility] [place] [address] * (ABNORMAL) BLOOD GAS 2 ARTERIAL (02/17/2024 12:14 PM EDT) pH, Arterial 7.39 7.35 - 7.45 [facility] PCO2, Arterial 40 35 - 45 mmHg [facility] PO2, Arterial 338(H) 85 - 104 mmHg [facility] Bicarbonate, Arterial 23.7 20.0 - 26.0 mmol/L [facility] Base Excess, Arterial -1.3 -3.0 - 3.0 mmol/L [facility] Hgb Blood Gas 11.0(L) 13.7 - 16.5 g/dL [facility] Oxyhemoglobin, Arterial 98.8(H) 94.0 - 97.0 % [facility] Carboxyhemoglob in, Arterial 0.3 % [facility] Comment: Nonsmokers: 0.5-1.5% COHB Smokers: Variable, but usually less than 10% Toxic: 20-30% COHB Lethal: Greater than 60% COHB Methemoglobin, Arterial 0.3 <=1.5 % [facility] Na Whole Blood 135 135 - 145 mmol/L [facility] K Whole Blood 5.1(H) 3.5 - 5.0 mmol/L [facility] Comment: Please note: Patients with WBC >100,000 may have falsely elevated Potassium levels. Contact the Clinical Chemistry Laboratory if there are any questions. ICa Whole Blood 1.13(L) 1.15 - 1.33 mmol/L [facility] Comment: Note: ??Total bilirubin higher than 20 mg/dL may lead to falsely low ionized calcium. CL Whole Blood 106 98 - 107 mmol/L [facility] Gluc Whole Bld 132 65 - 199 mg/dL [facility] Comment:Diabetes: >=200 mg/d L plus symptoms. Lactate WB 1.4 0.5 - 2.2 mmol/L [facility] Blood 02/17/2024 12:1 4 PM EDT 02/17/2024 12:14 PM EDT Hayder Graham MD POINT OF CARE TEST ORDERABLES Performing Organization Address [facility] de Phone Number [facility] [place] [address] * (ABNORMAL) Fibrinogen (02/17/2024 12:10 PM EDT) Fibrinogen 154(L) 200 - 393 mg/dL [facility] Comment: OR Result called [...] HEMATOLOGY ORDERABLE S Performing Organization Address [facility] Co de Phone Number [facility] [place] [address] * (ABNORMAL) Thrombin time (02/17/2024 12:10 PM EDT) Thrombin Time 18(H) 10 - 17 sec [facility] Comment: OR Result called [...] HEMATOLOGY ORDERABLE S Performing Organization Address [facility] de Phone Number [facility] [place] [address] * APTT (02/17/2024 12:10 PM EDT) Partial Thromboplastin Time 33 25 - 37 sec [facility] Comment: OR Result called [...] HEMATOLOGY ORDERABLE S Performing Organization Address [facility] de Phone Number [facility] [place] [address] * (ABNORMAL) Prothrombin Time (02/17/2024 12:10 PM EDT) Prothrombin Time 16.7(H) 9.4 - 12.5 sec [facility] Comment: OR Result called by ?? LOMARL OR Results read back by: ? alondra pagan at 2024-02-17 12:41:48 International Normalization Ratio 1.5 [facility] Comment: OR Result called [...] Lab Tara York MD HEMATOLOGY ORDERABLE S [facility] [place] [address] * (ABNORMAL) Hemogram (02/17/2024 12:10 PM EDT) White Blood Cell 11.1(H) 4.0 - 9.5 x10(3)/mc L [facility] Red Blood Cell 3.50(L) 4.58 - 5.54 x10(6)/mc L [facility] Hemoglobin 10.4(L) 13.7 - 16.5 g/dL [facility] Hematocrit 30.2(L) 40.5 - 48.5 % [facility] Comment: This result has been called to ALONDRA PAGAN by Eddie López on 02 17 2024 at 1226, and has been read back. Mean Cell Volume 86.3 82.9 - 93.1 fL [facility] Mean Cell Hemoglobin 29.7 27.5 - 32.1 pg [facility] Mean Cell Hemoglobin Concentration 34.4 32.0 - 35.7 g/dL [facility] Platelet 118(L) 145 - 357 x10(3)/mc L [facility] RDW Standard Deviation 40.2 36.0 - 45.0 fL [facility] RDW coefficient of variation 12.8 11.4 - 13.8 % [facility] Mean Platelet Volume 9.5 7.6 - 12.9 fL [facility] NRBC% auto 0.0 % [facility] NRBC Absolute 0.000 0.000 - 0.000 x10(3)/mc L [facility] Blood 02/17/2024 12:1 0 PM EDT 02/17/2024 12:19 PM EDT Narrative Resulting Agency Comment Spec In Lab Tara York MD HEMATOLOGY ORDERABLE S [facility] [address] [place] [address] * (ABNORMAL) BLOOD GAS 2 ARTERIAL (02/17/2024 11:43 AM EDT) pH, Arterial 7.38 7.35 - 7.45 [facility] PCO2, Arterial 40 35 - 45 mmHg [facility] PO2, Arterial 304(H) 85 - 104 mmHg [facility] Bicarbonate, Arterial 23.2 20.0 - 26.0 mmol/L [facility] Base Excess, Arterial -1.9 -3.0 - 3.0 mmol/L [facility] Hgb Blood Gas 11.1(L) 13.7 - 16.5 g/dL [facility] [facility] Oxyhemoglobin, Arterial 98.6(H) 94.0 - 97.0 % [facility] Carboxyhemoglob in, Arterial 0.3 % [facility] Comment: Nonsmokers: 0.5-1.5% COHB Smokers: Variable, but usually less than 10% Toxic: 20-30% COHB Lethal: Greater than 60% COHB Methemoglobin, Arterial 0.3 <=1.5 % [facility] Na Whole Blood 133(L) 135 - 145 mmol/L [facility] K Whole Blood 6.2(Critic al) 3.5 - 5.0 mmol/L [facility] Comment: Noted by instrument adjuster. Please note: Patients with WBC >100,000 may have falsely elevated Potassium levels. Contact the Clinical Chemistry Laboratory if there are any questions. ICa Whole Blood 0.97(L) 1.15 - 1.33 mmol/L [facility] Comment: Note: ??Total bilirubin higher than 20 mg/dL may lead to falsely low ionized calcium. CL Whole Blood 104 98 - 107 mmol/L [facility] Gluc Whole Bld 128 65 - 199 mg/dL [facility] Comment:Diabetes: >=200 mg/d L plus symptoms. Lactate WB 1.1 0.5 - 2.2 mmol/L [facility] Blood 02/17/2024 11:4 3 AM EDT 02/17/2024 11:43 AM EDT Hayder Graham MD POINT OF CARE TEST ORDERABLES [facility] [place] [address] * (ABNORMAL) BLOOD GAS 2 ARTERIAL (02/17/2024 11:08 AM EDT) pH, Arterial 7.38 7.35 - 7.45 [facility] PCO2, Arterial 38 35 - 45 mmHg [facility] PO2, Arterial 334(H) 85 - 104 mmHg [facility] Bicarbonate, Arterial 22.0 20.0 - 26.0 mmol/L [facility] Base Excess, Arterial -3.2(L) -3.0 - 3.0 mmol/L [facility] Hgb Blood Gas 10.8(L) 13.7 - 16.5 g/dL [facility] Oxyhemoglobin, Arterial 98.7(H) 94.0 - 97.0 % [facility] Carboxyhemoglob in, Arterial 0.3 % [facility] Comment: Nonsmokers: 0.5-1.5% COHB Smokers: Variable, but usually less than 10% Toxic: 20-30% COHB Lethal: Greater than 60% COHB Methemoglobin, Arterial 0.3 <=1.5 % [facility] Na Whole Blood 131(L) 135 - 145 mmol/L [facility] K Whole Blood 6.4(Critic al) 3.5 - 5.0 mmol/L [facility] Comment: Noted by instrument adjuster. Please note: Patients with WBC >100,000 may have falsely elevated Potassium levels. Contact the Clinical Chemistry Laboratory if there are any questions. ICa Whole Blood 0.98(L) 1.15 - 1.33 mmol/L [facility] Comment: Note: ??Total bilirubin higher than 20 mg/dL may lead to falsely low ionized calcium. CL Whole Blood 104 98 - 107 mmol/L [facility] Gluc Whole Bld 127 65 - 199 mg/dL [facility] Comment:Diabetes: >=200 mg/d L plus symptoms. Lactate WB 1.0 0.5 - 2.2 mmol/L [facility] Blood 02/17/2024 11:0 8 AM EDT 02/17/2024 11:08 AM EDT Hayder Graham MD POINT OF CARE TEST ORDERABLES Performing Organization Address City/[facility]/[place] [address] * (ABNORMAL) Hemoglobin and Hematocrit, blood (02/17/2024 11:04 AM EDT) Hemoglobin 9.6(L) 13.7 - 16.5 g/dL [facility] Hematocrit 28.0(L) 40.5 - 48.5 % [facility] Comment: This result has been called to ALONDRA PAGAN by Eddie López on 02 17 2024 at 1120, and has been read back. Blood 02/17/2024 11:0 4 AM EDT 02/17/2024 11:12 AM EDT Narrative Resulting Agency Comment Spec In Lab Hayder Graham MD HEMATOLOGY ORDERABL ES [facility] [place] [address] * (ABNORMAL) Platelet count (02/17/2024 11:04 AM EDT) Platelet 106(L) 145 - 357 x10(3)/mc L [facility] Immature Plt % 1.6 0.0 - 7.4 % [facility] Comment: Limitation of the Immature Platelet Fraction (IPF)-May be less reliable when the platelet count is less than 03b611/uL due to statistical imprecision. The IPF value [...] in a decreased state of production. References: [employer] The Clinical Value of the Immature Platelet Fraction (IPF) in Cell Recovery Document Number [id number] 03/2011 [employer] The Role of the Immature Platelet Fraction (IPF) in the Differential Diagnosis of Thrombocytopenia, Document [id number] V002/15/14 P014 Blood 02/17/2024 11:0 4 AM EDT 02/17/2024 11:12 AM EDT Narrative Resulting Agency Comment Spec In Lab Hayder Graham MD HEMATOLOGY ORDERABL ES [facility] [place] [address] * (ABNORMAL) Fibrinogen (02/17/2024 11:04 AM EDT) Pathologist [facility] Fibrinogen 149(L) 200 - 393 mg/dL [facility] Comment: OR Result called by ?? SALVLT OR Results read back by: ? Alondra Pagan at 2024-02-17 11:30:47 A fibrinogen level >100 mg/dL is adequate for hemostasis in most patients without underlying bleeding disorders. Blood 02/17/2024 11:0 4 AM EDT 02/17/2024 11:12 AM EDT Narrative Resulting Agency Comment Spec In Lab Hayder Graham MD HEMATOLOGY ORDERABL ES [facility] [place] [address] * (ABNORMAL) BLOOD GAS 2 ARTERIAL (02/17/2024 10:41 AM EDT) pH, Arterial 7.37 7.35 - 7.45 [facility] PCO2, Arterial 44 35 - 45 mmHg [facility] PO2, Arterial 335(H) 85 - 104 mmHg [facility] Bicarbonate, Arterial 24.9 20.0 - 26.0 mmol/L [facility] Base Excess, Arterial -0.4 -3.0 - 3.0 mmol/L [facility] Hgb Blood Gas 11.5(L) 13.7 - 16.5 g/dL [facility] Oxyhemoglobin, Arterial 98.9(H) 94.0 - 97.0 % [facility] Carboxyhemoglob in, Arterial 0.1 % [facility] Comment: Nonsmokers: 0.5-1.5% COHB Smokers: Variable, but usually less than 10% Toxic: 20-30% COHB Lethal: Greater than 60% COHB Methemoglobin, Arterial 0.3 <=1.5 % [facility] Na Whole Blood 132(L) 135 - 145 mmol/L [facility] K Whole Blood 5.9(H) 3.5 - 5.0 mmol/L [facility] Comment: Please note: Patients with WBC >100,000 may have falsely elevated Potassium levels. Contact the Clinical Chemistry Laboratory if there are any questions. ICa Whole Blood 1.02(L) 1.15 - 1.33 mmol/L [facility] Comment: Note: ??Total bilirubin higher than 20 mg/dL may lead to falsely low ionized calcium. CL Whole Blood 104 98 - 107 mmol/L [facility] Gluc Whole Bld 129 65 - 199 mg/dL [facility] Comment:Diabetes: >=200 mg/d L plus symptoms. Lactate WB 1.1 0.5 - 2.2 mmol/L [facility] Blood 02/17/2024 10:4 1 AM EDT 02/17/2024 10:41 AM EDT Hayder Graham MD POINT OF CARE TEST ORDERABLES Performing Organization Address City/State/[facility] Co de Phone Number [facility] [place] [address] * (ABNORMAL) BLOOD GAS 2 ARTERIAL (02/17/2024 10:06 AM EDT) pH, Arterial 7.38 7.35 - 7.45 [facility] PCO2, Arterial 42 35 - 45 mmHg [facility] PO2, Arterial 329(H) 85 - 104 mmHg [facility] Bicarbonate, Arterial 24.7 20.0 - 26.0 mmol/L [facility] Base Excess, Arterial -0.3 -3.0 - 3.0 mmol/L [facility] Hgb Blood Gas 11.0(L) 13.7 - 16.5 g/dL [facility] Oxyhemoglobin, Arterial 99.0(H) 94.0 - 97.0 % [facility] Carboxyhemoglob in, Arterial 0.3 % [facility] Comment: Nonsmokers: 0.5-1.5% COHB Smokers: Variable, but usually less than 10% Toxic: 20-30% COHB Lethal: Greater than 60% COHB Methemoglobin, Arterial 0.3 <=1.5 % [facility] Na Whole Blood 132(L) 135 - 145 mmol/L [facility] K Whole Blood 6.0(H) 3.5 - 5.0 mmol/L [facility] Comment: Please note: Patients with WBC >100,000 may have falsely elevated Potassium levels. Contact the Clinical Chemistry Laboratory if there are any questions. ICa Whole Blood 0.97(L) 1.15 - 1.33 mmol/L [facility] Comment: Note: ??Total bilirubin higher than 20 mg/dL may lead to falsely low ionized calcium. CL Whole Blood 102 98 - 107 mmol/L [facility] Gluc Whole Bld 123 65 - 199 mg/dL [facility] Comment:Diabetes: >=200 mg/d L plus symptoms. Lactate WB 1.1 0.5 - 2.2 mmol/L [facility] Blood 02/17/2024 10:0 6 AM EDT 02/17/2024 10:06 AM EDT Hayder Graham MD POINT OF CARE TEST ORDERABLES Performing Organization Address City/State/[facility] Co de Phone Number [facility] [place] [address] * Surgical Pathology Report (02/17/2024 10:01 AM EDT) Final Diagnosis [id number] ? Location: [facility]; [facility]; The signing pathologist has (i) examined the relevant preparation(s) for the specimen(s) and (ii) rendered or confirmed the diagnosis(es). . ?Surgical Pathology DIAGNOSIS Aortic valve leaflets, excision: Valve leaflets with myxoid degeneration, nodular fibrosis and dystrophic calcifications. Electronically signed by: ?Livier Montoya MD Verified: ??02/24/2024 13:49 ??Pathologist Performed at: ??-[facility] [place] Dept. [place]ology, [place] [address] Carbon Brusher Assembler: Job Brewer MD, FCAP, ??CLIA Certificate: [id number] SPECIMEN(S) SUBMITTED A - Aortic Valve Leaflets, [...] Sections Processing Blocks submitted for decalcification: A1. Credit Card Analyst sections in 1 cassette labeled A1. ??ajw 02/24/2024 1:49 PM EDT [facility] AORTIC STRUCTURE / Unknown 02/17/2024 10:01 AM EDT 02/17/2024 10:01 AM EDT Hayder Graham MD PATHOLOGY/CYTOLOGY ORDERABLES Performing Organization Address City/[facility]/ZIP Co de Phone Number [facility] [place] [address] * Specimen to Pathology (02/17/2024 10:01 AM EDT) AP Specimen 02/17/2024 10:0 1 AM EDT 02/17/2024 10:01 AM EDT Narrative [facility] - 02/17/2024 10:01 AM EDT Specimen requisition ordered. ??Separate Pathology report to follow Hayder Graham MD PATHOLOGY/CYTOLOGY ORDERABLES Performing Organization Address [facility]/ZIP Co de Phone Number [facility] [place] [address] * (ABNORMAL) BLOOD GAS 2 ARTERIAL (02/17/2024 9:35 AM EDT) pH, Arterial 7.33(L) 7.35 - 7.45 [facility] PCO2, Arterial 35 35 - 45 mmHg [facility] PO2, Arterial 318(H) 85 - 104 mmHg [facility] Bicarbonate, Arterial 17.9(L) 20.0 - 26.0 mmol/L [facility] Base Excess, Arterial -8.0(L) -3.0 - 3.0 mmol/L [facility] Hgb Blood Gas 11.0(L) 13.7 - 16.5 g/dL [facility] Oxyhemoglobin, Arterial 98.8(H) 94.0 - 97.0 % [facility] Carboxyhemoglob in, Arterial 0.3 % [facility] Comment: Nonsmokers: 0.5-1.5% COHB Smokers: Variable, but usually less than 10% Toxic: 20-30% COHB Lethal: Greater than 60% COHB Methemoglobin, Arterial 0.3 <=1.5 % [facility] Na Whole Blood 131(L) 135 - 145 mmol/L [facility] K Whole Blood 5.8(H) 3.5 - 5.0 mmol/L [facility] Comment: Please note: Patients with WBC >100,000 may have falsely elevated Potassium levels. Contact the Clinical Chemistry Laboratory if there are any questions. ICa Whole Blood 0.98(L) 1.15 - 1.33 mmol/L [facility] Comment: Note: ??Total bilirubin higher than 20 mg/dL may lead to falsely low ionized calcium. CL Whole Blood 101 98 - 107 mmol/L [facility] Gluc Whole Bld 122 65 - 199 mg/dL [facility] Comment:Diabetes: >=200 mg/d L plus symptoms. Lactate WB 0.8 0.5 - 2.2 mmol/L [facility] Blood 02/17/2024 9:35 AM EDT 02/17/2024 9:35 AM EDT Hayder Graham MD POINT OF CARE TEST ORDERABLES [facility] [place] [address] * (ABNORMAL) BLOOD GAS 2 VENOUS (02/17/2024 9:34 AM EDT) pH, Venous 7.22(Criti marquez) 7.32 - 7.42 [facility] Comment:Noted by instrument adjuster. PCO2, Venous 43 41 - 51 mmHg [facility] Comment:Noted by instrument adjuster. PO2, Venous 57(H) 25 - 40 mmHg [facility] Comment:Noted by instrument adjuster. Bicarbonate, Venous 17.1 mmol/L [facility] Comment:Noted by instrument adjuster. Base Excess, Venous -10.6 mmol/L [facility] Comment:Noted by instrument adjuster. Hgb Blood Gas 11.2(L) 13.7 - 16.5 g/dL [facility] Comment:Noted by instrument adjuster. Oxyhemoglobin, Venous 86.5 % [facility] Comment:Noted by instrument adjuster. Carboxyhemoglob in, Venous 0.3 % [facility] Comment: Noted by instrument adjuster. Nonsmokers: 0.5-1.5% COHB Smokers: Variable, but usually less than 10% Toxic: 20-30% COHB Lethal: Greater than 60% COHB Methemoglobin, Venous 0.0 <=1.5 % [facility] Comment:Noted by instrument adjuster. Na Whole Blood 156(H) 135 - 145 mmol/L [facility] Comment:Noted by instrument adjuster. K Whole Blood 5.5(H) 3.5 - 5.0 mmol/L [facility] Comment: Noted by instrument adjuster. Please note: Patients with WBC >100,000 may have falsely elevated Potassium levels. Contact the Clinical Chemistry Laboratory if there are any questions. ICa Whole Blood 1.03(L) 1.15 - 1.33 mmol/L [facility] Comment: Noted by instrument adjuster. Note: ??Total bilirubin higher than 20 mg/dL may lead to falsely low ionized calcium. CL Whole Blood 100 98 - 107 mmol/L [facility] Comment:Noted by instrument adjuster. Gluc Whole Bld 132 65 - 199 mg/dL [facility] Comment: Noted by instrument adjuster. Diabetes: >=200 mg/dL plus symptoms Lactate WB 1.0 0.5 - 2.2 mmol/L [facility] Comment:Noted by instrument adjuster. Blood Gas Source Venous [facility] Blood 02/17/2024 9:34 AM EDT 02/17/2024 9:34 AM EDT Hayder Graham MD POINT OF CARE TEST ORDERABLES [facility] [place] [address] * (ABNORMAL) BLOOD GAS 2 ARTERIAL (02/17/2024 8:07 AM EDT) pH, Arterial 7.43 7.35 - 7.45 [facility] PCO2, Arterial 34(L) 35 - 45 mmHg [facility] PO2, Arterial 581(H) 85 - 104 mmHg [facility] Bicarbonate, Arterial 21.7 20.0 - 26.0 mmol/L [facility] Base Excess, Arterial -2.6 -3.0 - 3.0 mmol/L [facility] Hgb Blood Gas 14.5 13.7 - 16.5 g/dL [facility] Oxyhemoglobin, Arterial 99.0(H) 94.0 - 97.0 % [facility] Carboxyhemoglob in, Arterial 0.4 % [facility] Comment: Nonsmokers: 0.5-1.5% COHB Smokers: Variable, but usually less than 10% Toxic: 20-30% COHB Lethal: Greater than 60% COHB Methemoglobin, Arterial 0.3 <=1.5 % [facility] Na Whole Blood 139 135 - 145 mmol/L [facility] K Whole Blood 4.0 3.5 - 5.0 mmol/L [facility] Comment: Please note: Patients with WBC >100,000 may have falsely elevated Potassium levels. Contact the Clinical Chemistry Laboratory if there are any questions. ICa Whole Blood 1.09(L) 1.15 - 1.33 mmol/L [facility] Comment: Note: ??Total bilirubin higher than 20 mg/dL may lead to falsely low ionized calcium. CL Whole Blood 106 98 - 107 mmol/L [facility] Gluc Whole Bld 100 65 - 199 mg/dL [facility] Comment:Diabetes: >=200 mg/d L plus symptoms. Lactate WB 1.3 0.5 - 2.2 mmol/L [facility] Blood 02/17/2024 8:07 AM EDT 02/17/2024 8:07 AM EDT Hayder Graham MD POINT OF CARE TEST ORDERABLES Performing Organization Address [facility] Co de Phone Number [facility] [place] [address] * POCT Glucose (02/17/2024 6:38 AM EDT) Glucose, POC 98 65 - 199 mg/dL [facility] Comment: Supplemental ranges: <140 mg/dL before meals <180 mg/dL all other times of the day Blood 02/17/2024 6:38 AM EDT 02/17/2024 6:38 AM EDT Hayder Graham MD POINT OF CARE TEST ORDERABLES Performing Organization Address [facility] Co de Phone Number [facility] [place] [address] * Transesophageal Echo/OR (02/17/2024 6:33 AM EDT) [...] [facility] [...] dose on Sat02/17/24 at 1400, Until Discontinued, [place] teeth and / or gums. Scan the CHG vial in the [employer] Q-Care Oral Care Kit from floor stock. Ventilator-associated pneumonia prophylaxis For use in ICU/Critical care locations ONLY. Obtain kit from Floor Stock location. Scan CHG vial in the [employer] Q-Care Oral Care Kit, Routine Given 02/17/2024 [...] for Spontaneous Awakening Trial, titrate per protocol., Routine, Please indicate the name & specialty of the Attending Provider who authorized the use of this medication: charlie Rate/Dose Change 02/17/2024 4:21 PM EDT 0.32 [...] 1 dose, On 02/22/24 at 1000, Routine Given 02/22/2024 10:02 AM [...] PHENYLephrine and/or vasopressin ineffective. Call pager # [phone] if initiated. Titrate to keep systolic blood [...] on 02/22/24 at 0730, Last dose on Sat02/22/24 at [...] painting instructor for additional fluid orders: pager #[phone]. Rate/Dose Verify 02/18/2024 8:00 AM EDT 1 mL/hr 1 mL/hr Rate/Dose Verify 02/18/2024 6:00 AM EDT 1 mL/hr 1 mL/hr Rate/Dose Verify 02/18/2024 4:00 AM EDT 1 mL/hr 1 mL/hr sodium chloride 0.9% infusion 10-30 mL/hr, Intravenous, DAILY PRN, Starting on Sat02/17/24 at 1307, Until Sat02/18/24 at 0835, Side port TKO rate, per [facility] nursing protocol. Rate/Dose Verify 02/17/2024 8:00 PM EDT 30 mL/hr 30 mL/hr Rate/Dose Verify 02/17/2024 6:00 PM EDT 30 mL/hr 30 mL/h r Rate/Dose Verify 02/17/2024 5:00 PM EDT 30 mL/hr 30 mL/h r sodium chloride 0.9% infusion 10-30 mL/hr, Intravenous, DAILY PRN, Starting on Sat02/17/24 at 1307, Until Sat02/18/24 at 0835, Side port TKO rate, per [facility] nrusing protocol. Rate/Dose Verify 02/18/2024 8:00 AM [...] Merrill, COLBY)1701 (Given - Provider: Mishel Merrill, RN)2324 (Given - Provider: Otis Crook RN) 0430 (Given - Provider: Otis Crook RN) apixaban (Eliquis) tablet 5 mg 5 mg, Oral, 2 TIMES DAILY, First dose on Sat02/21/24 at 1015, Until Discontinued, Anticoagulant, Routine, apixaban (Eliquis) Indication: Non-Valvular Atrial Fibrillation 0821 (Given - Provider: Reilly Vincent RN)2056 (Given - Provider: Polo Britton RN) 906 (Given - Provider: Mishel Merrill RN)2114 (Given [...] Reilly Vincent RN)1408 (Given - Provider: Ingrid Menjivar, RN)7 (Given - Provider: Polo Britton, COLBY) 0908 (Given - Provider: Mishel Merrill, COLBY)1500 (Given - Provider: Mishel Merrill, COLBY)211 (Given - Provider: Otis Crook, COLBY) 0836 (Given - Provider: Jazlyn Maldonado, COLBY) lidocaine (Lidoderm) 5% patch 1 patch 1 patch, Transdermal, Administer over 12 Hours, DAILY, First dose on Sat02/18/24 at 1445, Until Discontinued, Apply patch(es) for 12 hours, and then remove for 12 hours., Routine 0822 (Patch Applied - Provider: Reilly Vincent RN)2021 (Patch Removed - Provider: Polo Britton RN) 0908 (Patch Applied - Provider: Mishel Merrill, COLBY)210 (Patch Removed - Provider: Otis Crook RN) 0836 (Not Given - Provider: Jazlyn Maldonado RN - Reason: Patient/family refused) metoprolol tartrate (Lopressor) tablet 100 mg 100 mg, Oral, EVERY 12 HOURS SCHEDULED (2 times per day), First dose (after last modification) on Sat02/23/24 at 0945, Until Discontinued, Hold for HR<60 and or SBP<90, Routine 0911 (Given - Provider: Mishel Merrill, COLBY)2114 (Given - Provider: Otis Crook RN) 0835 (Given - Provider: Jazlyn Maldonado, OCLBY) metoproloL tartrate (Lopressor) tablet 25 mg (CANCELED) [...] IV, Routine 0821 (Given - Provider: Reilly Vincent, RN) 0907 (Given - Provider: Mishel Merrill, RN) 0835 (Given - Provider: Jazlyn Maldonado, [...] Ingrid Menjivar, COLBY)1201 (Stopped - Provider: Reilly Vincent, COLBY) senna-docusate (Pericolace) 8.6-50 mg per tablet 2 [...] Menjivar, COLBY) 0130 (Given - Provider: Polo Britton, COLBY)0908 (Given - Provider: Mishel Merrill, COLBY)1701 (Given [...] Merrill, COLBY) 0839 (Given - Provider: Jazlyn Maldonado RN) Continuous Medication Order 02/22/2024 02/23/2024 02/24/2024 [...] Routine documented in this encounter Care Teams Lavatory Attendant Relationship Specialty Start Date End Date Aparna Jordan APRN PCP - General Family Medicine 10/21/23 05/26/24 documented as of this encounter
--- OUTSIDE RECORDS SUMMARY | 2024-06-19 08:25 | XMS_ITS | Encounter Summary ---
Author Organization [facility] [place] [address] Care Team Providers Care Airframe Technical Officer Name Role Phone Vanessa Christian APRN Primary Care Provider [phone] Encounter Details Date Type Department Care Team (Late st Contact Info) Description 10/21/2023 Abstract Cardiology at [address] [phone] Adam Mayes RN Social History Tobacco Use [...] 3:00 PM EST Office Visit Cardiology at [address] [phone] Neftali Ernandez MD [facility] [place] [address] [place] [address] documented as of this encounter Visit Diagnoses Not on filedocumented in this encounter Care Teams Airframe Technical Officer Relationship Specialty Start Date End Date Vanessa Christian APRN PCP - General Family Medicine 10/21/23 05/26/24 documented as of this encounter
--- OUTSIDE RECORDS SUMMARY | 2024-06-19 08:25 | XMS_ITS | Encounter Summary ---
Author Organization [facility] Address [facility] [place] [address] Care Team Providers Care Hydrologic Engineer Name Role Phone Vanessa Chritsian APRN Primary Care Provider [phone] Encounter Details Date Type Department Care Team [...] PM EST Office Visit Cardiology at [address] [place] [address] Neftali Ernandez MD [facility] [place] [address] documented as of this encounter Visit Diagnoses Not on filedocumented in this encounter Care Teams Hydrologic Engineer Relationship Specialty Start Date End Date Vanessa Christian APRN PCP - General Family Medicine 10/21/23 05/26/24 documented as of this encounter
--- OUTSIDE RECORDS SUMMARY | 2024-06-19 08:25 | XMS_ITS | Encounter Summary ---
Author Organization [facility] [place] [address] Care Team Providers Care Straightening Machine Operator Name Role Phone Vanessa Christian APRN Primary Care Provider [phone] Encounter Details Date Type Department Care Team (Late st Contact Info) Description 12/26/2023 Notes Only Cardiology at [address] [address] Neftali Ernandez MD [facility] [place] [address] Social History Tobacco Use Types Packs/Day Years [...] PM EDT Echocardiogram images reviewed from [facility]. Indeed, the aortic valve appears severely stenotic. Cannotrule out bicuspid valve documented in this encounter Plan of Treatment Upcoming Encounters Date Type Department Care Team (Late st Contact Info) Description 11/30/2024 3:00 PM EST Office Visit Cardiology at [address] [address] Neftali Ernandez MD [facility] [place] [address] documented as of this encounter Visit Diagnoses Not on filedocumented in this encounter Care Teams Straightening Machine Operator Relationship Specialty Start Date End Date Vanessa Christian APRN PCP - General Family Medicine 10/21/23 05/26/24 documented as of this encounter
--- OUTSIDE RECORDS SUMMARY | 2024-06-19 08:25 | XMS_ITS | Encounter Summary ---
Author Organization [facility] [place] [address] Care Team Providers Care Bilingual Kindergarten Teacher Name Role Phone Vanessa Christian MAURI Primary Care Provider [phone] Reason for Visit * Auth/Cert (Routine) Specialty [...] ARTERIAL GRAFT (WRVU 7.93) Zak Farmer MD [facility] C[place]OTH[place] [address] [facility] Referral ID Status Reason Start Date Expiration Date Visits Re quested Visits Authorized [id number] 1 1 Encounter Details Date Type Department Care Team (Late st Contact Info) Description 02/17/2024 7:35 AM EDT Anesthesia Event Main Operating Room [facility] [place] [id number] Roman York MD [facility] [place] [address] Anesthesia Record Procedure Summary Procedure Name Responsible [...] by Sadiq Woo RN PIV 02/17/24; 0715; [id number]-mvl-[id number] catheter system; 18 gauge; cephalic vein (lateral [...] = 0.6 oz pur e alcohol) rare [facility] Utilities Answer Date Recorded In the past 12 months has th e electric, gas, oil, or water [employer] threatened to shut off services in your [...] Procedure Summary Date: 02/17/24 Room / Location: [facility] OR [address] [place] [address] MAIN OR Anesthesia Start: 734 Anesthesia Stop: [...] shown include unfiled device data. Patient Location: [facility] Level of Consciousness: Sedated (Pharmacologic/Intentional) Pain [...] 08/14/2023 ??? Nevus of face 09/26/2023 Right zoroastrian No past surgical history on file. Social [...] PM EST Office Visit Cardiology at [address] [place] [address] Neftali Ernandez MD [facility] [place] [address] documented as of this encounter [...] mg documented in this encounter Care Teams Bilingual Kindergarten Teacher Relationship Specialty Start Date End Date Vanessa Christian APRN PCP - General Family Medicine 10/21/23 05/26/24 documented as of this encounter
--- OUTSIDE RECORDS SUMMARY | 2024-06-19 08:25 | XMS_ITS | Encounter Summary ---
[place] [address] Care Team Providers Care Pump And Still Operator Name Role Phone Aparna Jordan MAURI Primary Care Provider [phone] Reason for Visit * Auth/Cert (Routine) Specialty [...] ARTERIAL GRAFT (WRVU 7.93) Hayder Graham MD [facility] [place] [address] [facility] Referral ID Status Reason Start Date Expiration Date Visits Re quested Visits Authorized [id number] 1 1 Encounter Details Date Type Department Care Team (Late st Contact Info) Description 02/17/2024 7:30 AM EDT - 02/17/2024 1:26 PM EDT [place] [id number] Hayder Graham MD [facility] [place] [address] ENDOSCOPIC HARVEST VEIN(S) FOR CABG (WRVU 0.31) [...] Patient Age: 63 y.o. Birthdate: 1960 Language: Senegalese Race: White Ethnicity: Not nor Admit Date: 02/17/2024 Discharge Date: 02/24/24 Attending Physician: Hayder Graham MD Follow-up Recommendations for Providers: Please continue routine management of cardiovascular risk factors including blood pressure, lipids,glucose, etc. Please note any changes to medications. Patient to follow up with PCP, Aparna Jordan APRN, in 1-2 weeks. Patient to follow up with Pump Machine Operator, Neftali Ernandez MD , in 2 weeks. Patient to follow up with Cardiac Surgeon, Dr. Hayder Graham, with a chest x-ray, EKG, and Echo. Inpatient Provider Contact Information: [facility] Section of Cardiac Surgery [facility] [address] FAX [phone] Discharge Diagnoses (Hospital Problems) Primary Diagnoses: /CAD [...] 33.75) performed by Hayder Graham MD at [facility] MAIN OR PRO CABG, ARTERY-VEIN, TWO N/A 02/17/2024 @CABG, TWO VENOUS GRAFTS & ARTERIAL GRAFT (WRVU 7.93) performed by Hayder Graham MD at [facility] MAIN OR PRO ENDOSCOPY W/VIDEO-ASST VEIN HARVEST, CABG Left 02/17/2024 ENDOSCOPIC HARVEST VEIN(S) FOR CABG (WRVU 0.31) performed by Hayder Graham MD at [facility] MAIN OR PRO REPLACEMENT PROSTHETIC AORTIC VALVE OPEN W CARDIOPULMONARY BYPASS HOMOGRF/STENT N/A 02/17/2024 @REPLACE AORTIC VALVE, OPEN, W\CPB, W\PROSTHETIC VALVE (WRVU 41.32) performed by Hayder Graham MD at [facility] MAIN OR Prior To Admission Medications [...] insufficiency. He has glaucoma. He used to bacPond5 until about 15 years ago. He has [...] Hayder Graham and/or the Cardiac Surgery Physician Valving Machine Operator Team may be reached at . Antibiotic [...] Please refer to the card with the [place] [employer] Guidelines for more information. [...] Dr. Hayder Graham. You may use a [place] Track or treadmill but avoid any pulling [...] friends, go to a movie, go to jew, etc. Heavy activities: No hunting, skiing, jogging, [...] should resume a low fat, low cholesterol, [place] Heart [employer] Diet. Driving: No driving [...] while being managed by your PCP and/or Pump Machine Operator. For future medication refills, please refer to your PCP and/or Pump Machine Operator after your discharge from our service. Thank you REMOVE CHEST TUBE SUTURES ON OR AFTER 03/02/24 Home oxygen therapy: N/A Follow up appointments: You should follow up with your PCP, Aparna Jordan APRN, in 1-2 weeks. Our office will schedule an appointment with your Pump Machine Operator, Neftali Ernandez MD , in 2 weeks. You have an appointment with your Cardiac Surgeon, Dr. Hayder Graham, 4 weeks with a chest x-ray, EKG, and Echo before your appointment. Cardiac Rehabilitation: Karlos Garcia was seen regarding participation in the outpatient Phase 2Cardiac Rehabilitation at [facility]. The patient agrees to a referral to this program. The referral will be sent at discharge and the patient should be contacted by the Program within 1- 2 weeks from discharge. Future Appointments and Orders Future Orders Complete By Expires Echocardiogram Transthoracic [66402 CPT(R)] 03/26/2024 09/25/2024 Process Instructions: Scheduling Instructions: Questions: Where will study be performed?: [facility] Does the patient have Congenital Heart Disease?: Does patient require sedation?: Sedation rationale: XR Chest PA & Lateral (Generic) [45983 24528 Custom] 03/26/2024 09/25/2024 Process Instructions: Scheduling Instructions: Questions: Portable exam?: Reason for exam and clinical history: s/p avr/cabg Clinical information / jerome questions for radiologist: Stat read required?: Date of injury if applicable: Requested Time: Where will study be performed?: [facility] Radiology Referral to Cardiac Rehab [BMJ709 Custom] As directed Process Instructions: If no progress note charted, please enter Clinical details in comments. Scheduling Instructions: Questions: My question or request is: s/p AVR/CABG. Cardiac rehab at [facility]. Referral to Home Health [REF34 Custom] As directed Process Instructions: If no progress note charted, please enter Clinical details in comments. Scheduling Instructions: Comments: Please evaluate Karlos Garcia for admission to Home Health. [address] Phone Number: Date of : 1960 Inpatient DOCUMENTATION FOR VNA SERVICES (INCLUDING THOSE PATIENTS WITH MEDICARE COVERAGE REQUIRING HOME VNA SERVICES AND/OR HOSPICE SERVICES) PATIENT'S LOCATION: Karlos Garcia [address] [place] [phone] Supervisor Printing [employer]'s Name: self/family In discussion with the attending physician, it is certified that this patient is under their care and that they, or a Nurse Practitioner, or Physician Valving Machine Operator who is working directly with them, hada [...] for services as follows: HOME HEALTH AGENCY: [facility] [address] [place] [phone] RN orders: Cardiopulmonary assessment, incisional assessment, assess [...] issues please call the Cardiology Office at [phone] FOR MEDICARE ONLY: (please delete this section [...] care: As above. Signed: NEFTALI MENON PA-C [facility] Section of Cardiac Surgery [facility] [address] FAX [phone] Date: 02/24/2024 CC: Aparna Jordan, MAURI Jordan, Aparna Sherman APRN [address] [place] [address] documented in this encounter Discharge Instructions * [...] Hayder Graham and/or the Cardiac Surgery Physician Valving Machine Operator Team may be reached at . Antibiotic [...] Please refer to the card with the [place] Heart [employer] Guidelines for more information. [...] Dr. Hayder Graham. You may use a [place] Track or treadmill but avoid any pulling [...] friends, go to a movie, go to jew, etc. Heavy activities: No hunting, skiing, jogging, [...] should resume a low fat, low cholesterol, [place] Heart [employer] Diet. Driving: No driving [...] while being managed by your PCP and/or Pump Machine Operator. For future medication refills, please refer to your PCP and/or Pump Machine Operator after your discharge from our service. Thank you REMOVE CHEST TUBE SUTURES ON OR AFTER 03/02/24 Home oxygen therapy: N/A Follow up appointments: You should follow up with your PCP, Aparna Jordan APRN, in 1-2 weeks. Our office will schedule an appointment with your Pump Machine Operator, Neftali Ernandez MD , in 2 weeks. You have an appointment with your Cardiac Surgeon, Dr. Hayder Graham, 4 weeks with a chest x-ray, EKG, and Echo before your appointment. Cardiac Rehabilitation: Karlos Garcia was seen regarding participation in the outpatient Phase 2Cardiac Rehabilitation at [facility]. The patient agrees to a referral to [...] 0600 and on the weekends please page [phone]. * Eric Barahona PA - 02/23/2024 9:27 [...] 0600 and on the weekends please page [phone]. * Tiffanie Owens - 02/22/2024 2:48 PM [...] d/c for 10 days. 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 * Kelley Hinson TOASTER OPERATOR - 02/21/2024 10:15 AM EDT Physical [...] d/c for 10 days. 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 * Kelley Hinson PTA - 02/20/2024 3:32 [...] 0600 and on the weekends please page [phone]. * Maris Benavides, PT - 02/19/2024 11:22 [...] d/c for 10 days. 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 Precautions/Special Considerations: [...] outlined inthis evaluation. MARIS BENAVIDES, PT Pager: [phone] Physical Therapy Inpatient Rehabilitation Department Time IN / OUT: 3276-5008 Total Time: 38 (eval) minutes; * Antonio [...] 0600 and on the weekends please page [phone]. * Minnie Begum PA - 02/18/2024 8:25 [...] site CDI with SANJANA wrap Tubes/Lines/Drains: RIJ/PAC, [place], Med Ctx, L pleural CT, TPW, Naqvi [...] 0600 and on the weekends please page [phone]. * Kim Ha [employer] SPECIAL ED TEACHER - 02/17/2024 2:25 PM EDT Respiratory Care [...] plan since last visit. Hayder Graham MD [phone] Source Note - Hayder Graham MD - [...] given written informed consent. Hayder Graham MD [phone] * Hayder Graham MD - 02/17/2024 7:00 [...] given written informed consent. Hayder Graham MD [phone] documented in this encounter Miscellaneous Notes * [...] information for follow-up Home Health & Hospice, [address] [place] [address] Cardiac Rehab, [address] [place] [address] Transportation: family or friend will provide Functional status prior to admission: Independent Home Environment: Others in the home: alone. Current Living Arrangements: home/apartment/condo. Accessibility Concerns:a few steps to enter 1 floor home. Current Functional Ability: Assistive Person and Equipment DME used at home: none DME Needed at Discharge: N/A Patient is insured through: Primary Insurance: [place] [employer] Payor: [facility] / Plan: [facility] PPO / Product Type: *No Product [...] pain managed with scheduled Tylenol. Worked with [facility]. Ambulated in the roque multiple times during [...] anticipated Patient is insured through: Primary Insurance: [facility] Payor: [facility] / Plan: [facility] PPO / Product Type: *No Product type* / Secondary Insurance: N/A Last Physical Therapy Recommendation: home with home health (Str coming to stay for a week or two upon d/c) with to be determined (owns rolling walker, shower seat) Plan for discharge is: Home w/ Services Outpatient Agency/Support Group Needs: Homecare agency Home Health Services: Physical Therapy, Registered Nurse Agency Referrals: [facility] [address] [place] [phone] Transportation: family or friend will provide Barriers to discharge: Discharge planning Plan going forward: Service Care Management will continue to follow and assist with discharge planning and coordination of care as indicated. Anticipated Date of Discharge: 02/22/2024 Rhett Bell RN RN/CM - Cellphone: [phone] Pager: [phone] Covering Service RN/CM * Plan of Care [...] 02/19/2024 10:44 AM EDT [facility] [place] Karlos Garcia was seen today regarding participation in the outpatient Phase 2 Cardiac Rehabilitation at [facility]. The patient agrees to a referral to [...] surrogate would be surrogate decision maker per [place] surrogate decision making law. (Only good for 180 days) Any patient receiving care in [place] must abide by [place] law. The hierarchy for surrogate decision making [...] (i) The agent with financial power of bean viner or a conservator appointed in accordance with [...] steady place to sleep or slept in [facility] (including now)?: No In the past 12 months has the [employer], gas, oil, or water [employer] threatened to shut off services in your [...] as: [address] [facility] [address] Physical address: [address] [facility], [address] Social & Family Supports: All names listed [...] Information: none noted Health/Prescription Coverage: Primary Insurance: [facility] Payor: [facility] / Plan: [facility] PPO / Product Type: *No Product type* / Secondary Insurance: N/A ; Prescription Coverage: Yes Preferred Pharmacy: [id number] [address] Status: Patient is a : No Primary Care Provider confirmed: Aparna Jordan APRN [phone] Patient/Caregiver Goals of Treatment: dc to home Potential Needs for Transition of Care: home health care Agency Referrals: I have met with the patient to: discuss discharge planning needs. provide the [facility], Office of Care Management letter from the pertaining to rehab referrals. provide a letter describing our affiliations within the [facility] and educate about their right to choose where referrals are sent. provide a list of Home Health Agencies / Durable Medical Equipment vendors which serve their preferred geographic area. provided patient with [facility] Star Quality Rating handout. They have requested referrals to: [facility] [address] [place] [address] Note routed to a Bakery [employer] Deli Sales Manager who will communicate referrals to facilities [...] Reina Greene RN CM, BSN, CMGT- Ext [phone] * Plan of Care - Binta Trinidad [...] Operative Note Patient Name: Karlos Garcia : [id number] MR#: [id number] Case Date: 02/17/2024 Surgeon: Surgeon(s) and Role: * Hayder Graham MD - Primary * Neftali Menon PA - Physician Valving Machine Operator Preoperative diagnosis: CAD Postoperative diagnosis: CAD, intraoperative [...] Drains: Mediastinal and Left pleural Disposition: [facility] Condition: doing well without problems Attestation: Case Date: 02/17/2024 I performed this procedure without the involvement of a resident. HAYDER GRAHAM MD 02/17/2024 * Op Note - Hayder Graham MD - 02/17/2024 8:20 AM EDT [facility] Oper[place] Note Patient Name: Karlos Garcia : [id number] MR#: [id number] Case Date: 02/17/2024 Surgeon: Surgeons and Role: * Hayder Graham MD - Primary * Neftali Menon PA - Physician Valving Machine Operator Preoperative diagnosis: CAD Postoperative diagnosis: CAD, intraoperative [...] Drains: Mediastinal and Left pleural Disposition: [facility] Procedure Description: The patient was brought [...] PM EST Office Visit Cardiology at [address] [address] Neftali Ernandez MD [facility] [place] [address] Scheduled Orders Name Type Priority Associated Diagnoses [...] Aortic Valve Open W Cardiopulmonary Bypass Homogrf/Stent (35170) Yes 02/17/2024 7:28 AM EDT CAD Cabg, Artery-Vein, Two (72493) Yes 02/17/2024 7:28 AM EDT CAD Cabg, Arterial, Single (41704) Yes 02/17/2024 7:28 AM EDT CAD Endoscopy W/Video-Asst Vein [place], Cabg (80382) Yes 02/17/2024 7:28 AM EDT CAD POCT [...] CHEMISTRY ORDERABLE S [facility] [place] [address] * (ABNORMAL) Basic Metabolic Panel (non-fasting) (02/23/2024 [...] MD CHEMISTRY ORDERABLES [facility] [place] [address] * Potassium (02/22/2024 4:30 AM EDT) Potassium [...] CHEMISTRY ORDERABLE S [facility] [place] [address] * (ABNORMAL) Basic Metabolic Panel (non-fasting) (02/21/2024 [...] 31 [facility] Comment:Add-on request. Yolanda le [...] MD CHEMISTRY ORDERABLES [facility] [place] [address] * Lactate, whole blood, send to lab ([facility]) (02/21/2024 9:45 AM EDT) [facility] Lactate WB 2.0 0.5 - 2.2 mmol/L [facility] Blood 02/21/2024 9:45 AM EDT 02/21/2024 9:52 AM EDT Narrative Resulting Agency Comment Spec In Lab Hayder Graham MD CHEMISTRY ORDERABLE S Performing Organization Address [facility] Co de Phone Number [facility] [place] [address] * (ABNORMAL) Hepatic Function Panel (02/21/2024 9:45 AM EDT) [facility] Protein, Total 5.7(L) 6.1 - 8.0 g/dL [...] CHEMISTRY ORDERABLE S [facility] [place] [address] * Lipase (02/21/2024 9:45 AM EDT) Lipase 56 0 - 60 unit/L [facility] Blood 02/21/2024 9:45 AM EDT 02/21/2024 9:52 AM EDT Narrative Resulting Agency Comment Spec In Lab Hayder Graham MD CHEMISTRY ORDERABLE S [facility] [place] [address] * Amylase (02/21/2024 9:45 AM EDT) Amylase 69 28 - 100 unit/L [facility] Blood 02/21/2024 9:45 AM EDT 02/21/2024 9:52 AM EDT Narrative Resulting Agency Comment Spec In Lab Hayder Graham MD CHEMISTRY ORDERABLE S Performing Organization Address City/[facility]/ZIP Co de Phone Number [facility] [place] [address] * Potassium (02/21/2024 3:08 AM EDT) Potassium [...] CHEMISTRY ORDERABLE S [facility] [place] [address] * XR Chest PA & Lateral (Generic) (02/20/2024 10:19 AM EDT) WORKSTATION ID [id number] RAD Anatomical Region Laterality Modality Chest N/A Digital Radiogra phy Impressions 02/20/2024 1:11 PM EDT Small pleural effusions. No pneumothorax Thank you for letting us participate in the care of this patient. ??If you are a health care provider and have any questions regarding this report, please contact the number below. ??For patients who have questions please contact the health health care law specialist that requested your imaging first. ? Electronically signed by: Rogerio Cruz MD, [facility] ??([phone]), at 02/20/2024 1:11 PM Narrative 02/20/2024 1:11 PM EDT EXAMINATION: XR CHEST PA AND LATERAL (GENERIC) CLINICAL HISTORY: s/p AVR/CABGx3 TECHNIQUE: PA and lateral views of the chest COMPARISON: 02/17/2024 FINDINGS: Support devices: Interval removal of [place] catheter, endotracheal tube and mediastinal chest tubes The cardiac silhouette is stable status post median sternotomy, CABG and aortic valve replacement. There are small pleural effusions. No pneumothorax. Procedure Note Rogerio Cruz MD - 02/20/2024 EXAMINATION: XR CHEST PA AND LATERAL (GENERIC) CLINICAL HISTORY: s/p AVR/CABGx3 TECHNIQUE: PA and lateral views of the chest COMPARISON: 02/17/2024 FINDINGS: Support devices: Interval removal of [place] catheter, endotracheal tubeand mediastinal chest tubes The [...] have questions please contactthe health health care law specialist that requested your imaging first. Electronically signed by: Rogerio Cruz MD, [facility]([phone]), at 02/20/2024 1:11 PM Hayder Graham MD IMG DX ORDERABLES * Scan, Peripheral Blood (02/20/2024 4:23 AM EDT) Pathologist [facility] Plat estimate Decreased [facility] RBC Morphology Normal [facility] Blood 02/20/2024 4:23 AM EDT 02/20/2024 4:42 AM EDT Narrative Resulting Agency Comment Spec In Lab Minnie FRENCH HEMATOLOGY CECILIO ALEMAN [facility] [place] [phone] * (ABNORMAL) Differential, Automated (02/20/2024 4:23 AM EDT) [facility] Neutrophil % 81.7 % [facility] Neutrophil Absolute 10.37(H) 1.70 - 6.10 x10(3)/mc L [facility] Lymph % 7.4 % [facility] Lymphocytes Abs 0.9 0.9 - 3.2 x10(3)/mc L [facility] Monocyte % 9.7 % [facility] Monocyte Abs 1.2(H) 0.3 - 0.9 x10(3)/mc L [facility] Eos % 0.1 % [facility] Eosinophils Abs 0.0 0.0 - 0.4 x10(3)/mc L [facility] Basophil % 0.2 % [facility] Baso Absolute 0.0 0.0 - 0.1 x10(3)/mc L [facility] Immature Gran % 0.90 % [facility] [...] HEMATOLOGY CECILIO ALEMAN [facility] [place] [address] * (ABNORMAL) Hemogram (02/20/2024 4:23 AM EDT) White Blood Cell 12.7(H) 4.0 - 9.5 x10(3)/ L [facility] Red Blood [...] Platelet 88(L) 145 - 357 x10(3)/ L [facility] RDW Standard Deviation 43.5 36.0 - 45.0 fL [facility] RDW coefficient of variation 13.7 11.4 - 13.8 % [facility] Mean Platelet Volume 10.2 7.6 - 12.9 fL [facility] NRBC% auto 0.0 % [facility] NRBC Absolute 0.000 0.000 - 0.000 x10(3)/mc L [facility] Blood 02/20/2024 4:23 AM EDT 02/20/2024 4:42 AM EDT Narrative Resulting Agency Comment Spec In Lab Minnie FRENCH HEMATOLOGY CECILIO ALEMAN [facility] [place] [address] * (ABNORMAL) Basic Metabolic Panel (non-fasting) (02/20/2024 4:23 AM EDT) Glucose 113 65 - 199 mg/dL [facility] Comment:Diabetes: >=200 mg/d L plus symptoms Blood Urea Nitrogen 20 10 - 20 mg/dL [facility] Comment:result rechecked-[place] Creatinine 0.71(L) 0.80 - 1.50 mg/dL [facility] [...] MD CHEMISTRY ORDERABLE S Performing Organization Address [facility] Co de Phone Number [facility] [place] [address] * Potassium (02/19/2024 3:57 AM EDT) Potassium [...] MD CHEMISTRY ORDERABLE S Performing Organization Address [facility]/ZIP Co de Phone Number [facility] [place] [address] * POCT Glucose (02/18/2024 8:24 AM EDT) Glucose, POC 157 65 - 199 mg/dL [facility] Comment: Supplemental ranges: <140 mg/dL before meals <180 mg/dL all other times of the day Blood 02/18/2024 8:24 AM EDT 02/18/2024 8:24 AM EDT Hayder Graham MD POINT OF CARE TEST ORDERABLES Performing Organization Address City/[facility]/ZIP Co de Phone Number [facility] [place] [address] * Scan, Peripheral Blood (02/18/2024 1:40 AM EDT) Plat estimate Decreased [facility] RBC Morphology Normal [facility] Blood 02/18/2024 1:40 AM EDT 02/18/2024 1:56 AM EDT Narrative Resulting Agency Comment Spec In Lab Neftali FRENCH HEMATOLOGY ORDER OLE Performing Organization Address City/[facility] Co de Phone Number [facility] [place] [address] * (ABNORMAL) Differential, Automated (02/18/2024 1:40 AM EDT) [facility] Neutrophil % 87.1 % [facility] Neutrophil Absolute 15.03(H) 1.70 - 6.10 x10(3)/mc L [facility] Lymph % 3.0 % [facility] Lymphocytes Abs 0.5(L) 0.9 - 3.2 x10(3)/mc L [facility] Monocyte % 9.1 % [facility] Monocyte Abs 1.6(H) 0.3 - 0.9 x10(3)/mc L [facility] Eos % 0.0 % [facility] Eosinophils Abs 0.0 0.0 - 0.4 x10(3)/mc L [facility] Basophil % 0.2 % [facility] [...] Absolute 0.10(H) 0.00 - 0.04 x10(3)/mc L [facility] Blood 02/18/2024 1:40 AM EDT 02/18/2024 1:56 AM EDT Narrative Resulting Agency Comment Spec In Lab Neftali FRENCH HEMATOLOGY ORDER OLE [facility] [place] [address] * (ABNORMAL) Hemogram (02/18/2024 1:40 AM EDT) White Blood Cell 17.2(H) 4.0 - 9.5 x10(3)/mc L [facility] Red Blood Cell 4.71 4.58 - 5.54 x10(6)/mc L [facility] Hemoglobin 13.7 13.7 - 16.5 g/dL [facility] Hematocrit 39.2(L) 40.5 - 48.5 % [facility] Mean Cell Volume 83.2 82.9 - 93.1 fL [facility] Mean Cell Hemoglobin 29.1 27.5 - 32.1 pg [facility] Mean Cell Hemoglobin Concentration 34.9 32.0 - 35.7 g/dL [facility] Platelet 147 145 - 357 x10(3)/mc L [facility] RDW Standard Deviation 39.9 36.0 - 45.0 [facility] RDW coefficient of variation 13.2 11.4 - 13.8 % [facility] Mean Platelet Volume 9.9 7.6 - 12.9 fL [facility] NRBC% auto 0.0 % [facility] NRBC Absolute 0.000 0.000 - 0.000 x10(3)/mc L [facility] Blood 02/18/2024 1:40 AM EDT 02/18/2024 1:56 AM EDT Narrative Resulting Agency Comment Spec In Lab Neftali FRENCH HEMATOLOGY ORDER OLE [facility] [place] [address] * (ABNORMAL) Basic Metabolic Panel (non-fasting) (02/18/2024 [...] CHEMISTRY ORDERABLE S [facility] [place] [address] * (ABNORMAL) Troponin (02/18/2024 1:40 AM EDT) Pathologist [facility] Troponin-T, High Sensitivity 342(H) <=22 ng/L [facility] [...] can be found in the [facility] Laboratory Test Catalog Troponin - [facility] Laboratory Test Catalog Reference: Fourth [employer] Definition of Myocardial Infarction. Journal of the [place] [employer] 2018;72:9881-8242 Blood 02/18/2024 1:40 AM EDT 02/18/2024 1:56 AM EDT Narrative Resulting Agency Comment Spec In Lab Hayder Graham MD CHEMISTRY ORDERABLE S Performing Organization Address [facility] Co de Phone Number [facility] [place] [address] * POCT Glucose (02/17/2024 8:13 PM EDT) Glucose, POC 142 65 - 199 mg/dL [facility] Comment: Supplemental ranges: <140 mg/dL before meals <180 mg/dL all other times of the day Blood 02/17/2024 8:13 PM EDT 02/17/2024 8:13 PM EDT Hayder Graham MD POINT OF CARE TEST ORDERABLES Performing Organization Address [facility] de Phone Number [facility] [place] [address] * POCT Glucose (02/17/2024 5:42 PM EDT) Glucose, POC 160 65 - 199 mg/dL [facility] Comment: Supplemental ranges: <140 mg/dL before meals <180 mg/dL all other times of the day Blood 02/17/2024 5:42 PM EDT 02/17/2024 5:42 PM EDT Hayder Graham MD POINT OF CARE TEST ORDERABLES Performing Organization Address [facility] Co de Phone Number [facility] [place] [address] * Hemoglobin (02/17/2024 5:42 PM EDT) Hemoglobin 13.7 13.7 - 16.5 g/dL [facility] Blood 02/17/2024 5:42 PM EDT 02/17/2024 6:10 PM EDT Narrative Resulting Agency Comment Spec In Lab Hayder Graham MD HEMATOLOGY ORDERABL ES Performing Organization Address [facility]/ZIP Co de Phone Number [facility] [place] [address] * Potassium (02/17/2024 5:42 PM EDT) Pathologist [facility] Potassium 4.3 3.5 - 5.0 mmol/L [facility] [...] MD CHEMISTRY ORDERABLE S Performing Organization Address [facility] Co de Phone Number [facility] [place] [address] * (ABNORMAL) BLOOD GAS 2 ARTERIAL (02/17/2024 [...] [facility] FIO2 Art 40 % [facility] PF Ratio Art 195 [facility] Blood 02/17/2024 4:18 PM EDT 02/17/2024 4:18 PM EDT Hayder Graham MD POINT OF CARE TEST ORDERABLES Performing Organization Address City/State/[facility] Co de Phone Number [facility] [place] [address] * XR Chest One View (02/17/2024 1:44 PM EDT) [place] WORKSTATION ID [id number] RAD Anatomical Region Laterality Modality Chest N/A Digital Radiogra phy Impressions 02/17/2024 2:12 PM EDT 1. ??No definite pleural fluid collection or pneumothorax. 2. ??Right IJ [place] catheter tip terminates in a descending branch [...] questions please contact the health health care law specialist that requested your imaging first. ? Electronically signed by: Denzel Hankins MD, [facility] ??([phone]), at 02/17/2024 2:12 PM Narrative 02/17/2024 2:12 PM EDT EXAMINATION: XR CHEST ONE VIEW CLINICAL HISTORY: s/p avr/cabg eval effusions TECHNIQUE: 1 view of the chest COMPARISON: Chest x-ray 01/09/2024, chest CT 02/03/2024 FINDINGS: ET tube tip terminates 5.2 cm above the carlos. Right IJ [place] catheter tip terminates in a descending branch [...] 5.2 cm above the carlos. Right IJ [place]-Ganzcatheter tip terminates in a descending branch of [...] fluid collection or pneumothorax. 2. Right IJ [place] catheter tip terminates in a descending branch ofthe right pulmonary artery. Suggest catheter retraction. 3. Additional support lines and tubes as above. Thank you for letting us participate in the care of this patient. If youare a health care provider and have any questions regarding this report,please contact the number below. For patients who have questions please contactthe health health care law specialist that requested your imaging first. Electronically signed by: Denzel Hankins MD, [facility]([phone]), at 02/17/2024 2:12 PM Hayder Graham MD [...] [facility]ICAL [facility]ENTER [facility] FIO2 Art 100 % [facility] PF Ratio Art 320 [facility] Blood 02/17/2024 1:31 PM EDT 02/17/2024 1:31 PM EDT Hayder Graham MD POINT OF CARE TEST ORDERABLES [facility] [place] [address] * (ABNORMAL) Coox2 (02/17/2024 1:21 PM EDT) [...] CARE TEST ORDERABLES [facility] [place] [address] * (ABNORMAL) BLOOD GAS 2 ARTERIAL (02/17/2024 [...] OF CARE TEST ORDERABLES Performing Organization Address [facility] Co de Phone Number [facility] [place] [address] * (ABNORMAL) Fibrinogen (02/17/2024 12:10 PM EDT) [...] MD HEMATOLOGY ORDERABLE S Performing Organization Address [facility] Co de Phone Number [facility] [place] [address] * (ABNORMAL) Thrombin time (02/17/2024 12:10 PM [...] MD HEMATOLOGY ORDERABLE S Performing Organization Address [facility] Co de Phone Number [facility] [place] [address] * APTT (02/17/2024 12:10 PM EDT) Partial [...] MD HEMATOLOGY ORDERABLE S Performing Organization Address [facility]/ZIP Co de Phone Number [facility] [place] [address] * (ABNORMAL) Prothrombin Time (02/17/2024 12:10 PM [...] HEMATOLOGY ORDERABLE S [facility] [place] [address] * (ABNORMAL) Hemogram (02/17/2024 12:10 PM EDT) [...] MEDICAL [facility]ENTER [facility] NRBC% auto 0.0 % [facility] NRBC Absolute 0.000 0.000 - 0.000 x10(3)/mc L [facility] Blood 02/17/2024 12:1 0 PM EDT 02/17/2024 12:19 PM EDT Narrative Resulting Agency Comment Spec In Lab Tara York MD HEMATOLOGY ORDERABLE S [facility] [place] [address] * (ABNORMAL) BLOOD GAS 2 ARTERIAL (02/17/2024 [...] [facility] Comment: Noted by optical instrument assembly supervisor. Please note: Patients with [...] CARE TEST ORDERABLES [facility] [place] [address] * (ABNORMAL) BLOOD GAS 2 ARTERIAL (02/17/2024 [...] [facility] Comment: Noted by optical instrument assembly supervisor. Please note: Patients with [...] OF CARE TEST ORDERABLES Performing Organization Address [facility]/ZIP Co de Phone Number [facility] [place] [address] * (ABNORMAL) Hemoglobin and Hematocrit, blood (02/17/2024 11:04 AM EDT) Pathologist [facility] Hemoglobin 9.6(L) 13.7 - 16.5 [...] MD HEMATOLOGY ORDERABL ES Performing Organization Address City/[facility]/ZIP Co de Phone Number [facility] [place] [address] * (ABNORMAL) Platelet count (02/17/2024 11:04 AM EDT) Pathologist [facility] Platelet 106(L) 145 - 357 x10(3)/mc L [facility] Immature Plt % 1.6 0.0 - 7.4 % [facility] Comment: Limitation of the Immature Platelet Fraction (IPF)-May be less reliable when the platelet count is less than 90z908/uL due to statistical imprecision. The IPF value [...] in a decreased state of production. References: [employer] The Clinical Value of the Immature Platelet Fraction (IPF) in Cell Recovery Document Number [id number] 03/2011 [employer] The Role of the Immature Platelet Fraction (IPF) in the Differential Diagnosis of Thrombocytopenia, Document MKT-[id number] V002/15/14 P014 Blood 02/17/2024 11:0 4 AM EDT 02/17/2024 11:12 AM EDT Narrative Resulting Agency Comment Spec In Lab Hayder Graham MD HEMATOLOGY ORDERABL ES Performing Organization Address City/State/[facility] Co de Phone Number [facility] [place] [address] * (ABNORMAL) Fibrinogen (02/17/2024 11:04 AM EDT) [...] HEMATOLOGY ORDERABL ES [facility] [place] [address] * (ABNORMAL) BLOOD GAS 2 ARTERIAL (02/17/2024 [...] CARE TEST ORDERABLES [facility] [place] [address] * (ABNORMAL) BLOOD GAS 2 ARTERIAL (02/17/2024 [...] CARE TEST ORDERABLES [facility] [place] [address] * Surgical Pathology Report (02/17/2024 10:01 AM EDT) Final Diagnosis [id number] ? Location: [facility]; [facility]; The signing pathologist has (i) examined the relevant preparation(s) for the specimen(s) and (ii) rendered or confirmed the diagnosis(es). . ?Surgical Pathology DIAGNOSIS Aortic valve leaflets, excision: Valve leaflets with myxoid degeneration, nodular fibrosis and dystrophic calcifications. Electronically signed by: ?Lindsay FERNANDEZ, Livier Gonzalez Verified: ??02/24/2024 13:49 ??Pathologist Performed at: ??-[facility] [place], [place] [address] : Job Brewer MD, FCAP, ??CLIA Certificate: [id number] SPECIMEN(S) SUBMITTED A - Aortic Valve Leaflets, [...] Sections Processing Blocks submitted for decalcification: A1. House Detective sections in 1 cassette labeled A1. ??ajw 02/24/2024 1:49 PM EDT [facility] AORTIC STRUCTURE / Unknown 02/17/2024 10:01 AM EDT 02/17/2024 10:01 AM EDT Hayder Graham MD PATHOLOGY/CYTOLOGY ORDERABLES Performing Organization Address City/[facility]/ZIP Co de Phone Number [facility] [place] [address] * Specimen to Pathology (02/17/2024 10:01 AM EDT) AP Specimen 02/17/2024 10:0 1 AM EDT 02/17/2024 10:01 AM EDT Narrative [facility] - 02/17/2024 10:01 AM EDT Specimen requisition ordered. ??Separate Pathology report to follow Hayder Graham MD PATHOLOGY/CYTOLOGY ORDERABLES Performing Organization Address City/[facility]/ZIP Co de Phone Number [facility] [place] [address] * (ABNORMAL) BLOOD GAS 2 ARTERIAL (02/17/2024 [...] CARE TEST ORDERABLES [facility] [place] [address] * (ABNORMAL) BLOOD GAS 2 VENOUS (02/17/2024 9:34 AM EDT) pH, Venous 7.22(Criti marquez) 7.32 - 7.42 [facility] Comment:Noted by optical instrument assembly supervisor. PCO2, Venous 43 41 - 51 mmHg [facility] Comment:Noted by optical instrument assembly supervisor. PO2, Venous 57(H) 25 - 40 mmHg [facility] Comment:Noted by optical instrument assembly supervisor. Bicarbonate, Venous 17.1 mmol/L [facility] Comment:Noted by optical instrument assembly supervisor. Base Excess, Venous -10.6 mmol/L [facility] Comment:Noted by optical instrument assembly supervisor. Hgb Blood Gas 11.2(L) 13.7 - 16.5 g/dL [facility] Comment:Noted by optical instrument assembly supervisor. Oxyhemoglobin, Venous 86.5 % [facility] Comment:Noted by optical instrument assembly supervisor. Carboxyhemoglob in, Venous 0.3 % [facility] Comment: Noted by optical instrument assembly supervisor. Nonsmokers: 0.5-1.5% COHB Smokers: Variable, but usually less than 10% Toxic: 20-30% COHB Lethal: Greater than 60% COHB Methemoglobin, Venous 0.0 <=1.5 % [facility] Comment:Noted by optical instrument assembly supervisor. Na Whole Blood 156(H) 135 - 145 mmol/L [facility] Comment:Noted by optical instrument assembly supervisor. K Whole Blood 5.5(H) 3.5 - 5.0 mmol/L [facility] Comment: Noted by optical instrument assembly supervisor. Please note: Patients with WBC >100,000 may have falsely elevated Potassium levels. Contact the Clinical Chemistry Laboratory if there are any questions. ICa Whole Blood 1.03(L) 1.15 - 1.33 mmol/L [facility] Comment: Noted by optical instrument assembly supervisor. Note: ??Total bilirubin higher than 20 mg/dL may lead to falsely low ionized calcium. CL Whole Blood 100 98 - 107 mmol/L [facility] Comment:Noted by optical instrument assembly supervisor. Gluc Whole Bld 132 65 - 199 mg/dL [facility] Comment: Noted by optical instrument assembly supervisor. Diabetes: >=200 mg/dL plus symptoms Lactate WB 1.0 0.5 - 2.2 mmol/L [facility] Comment:Noted by optical instrument assembly supervisor. Blood Gas Source Venous [facility] Blood 02/17/2024 9:34 AM EDT 02/17/2024 9:34 AM EDT Hayder Graham MD POINT OF CARE TEST ORDERABLES [facility] [place] [address] * (ABNORMAL) BLOOD GAS 2 ARTERIAL (02/17/2024 [...] OF CARE TEST ORDERABLES Performing Organization Address [facility] Co de Phone Number [facility] [place] [address] * POCT Glucose (02/17/2024 6:38 AM EDT) Glucose, POC 98 65 - 199 mg/dL [facility] Comment: Supplemental ranges: <140 mg/dL before meals <180 mg/dL all other times of the day Blood 02/17/2024 6:38 AM EDT 02/17/2024 6:38 AM EDT Hayder Graham MD POINT OF CARE TEST ORDERABLES Performing Organization Address [facility] Co de Phone Number [facility] [place] [address] * Transesophageal Echo/OR (02/17/2024 6:33 AM EDT) [...] [facility] and post-operative [facility] of [...] RN) 0907 (Given - Provider: Mishel Merrill, COLYB) 0835 (Given - Provider: Jazlyn Maldonado, COLBY) [...] Routine documented in this encounter Care Teams Pump And Still Operator Relationship Specialty Start Date End Date Aparna Jordan APRN PCP - General Family Medicine 10/21/23 05/26/24 documented as of this encounter
--- OUTSIDE RECORDS SUMMARY | 2024-06-19 08:25 | XMS_ITS | Encounter Summary ---
Author Organization [facility] [place] [address] Care Team Providers Care Edger Operator Name Role Phone Vanessa Christian APRN Primary Care Provider [phone] Encounter Details Date Type Department Care Team [...] PM EST Office Visit Cardiology at [address] [place] [id number] Neftali Ernandez MD [facility] [place] [address] documented as of this encounter Visit Diagnoses Not on filedocumented in this encounter Care Teams Edger Operator Relationship Specialty Start Date End Date Vanessa Christian APRN PCP - General Family Medicine 10/21/23 05/26/24 documented as of this encounter
--- OUTSIDE RECORDS SUMMARY | 2024-06-19 08:25 | XMS_ITS | Encounter Summary ---
Author Organization [facility] Address [facility] [place] [address] Care Team Providers Care Site Safety Representative Name Role Phone Vanessa Christian MAURI Primary Care Provider [phone] Encounter Details Date Type Department Care Team (Latest Contact Info) Description 01/09/2024 3:02 PM EDT - 01/09/2024 11:59 PM EDT Hospital Encounter XRay at [address] [place] [address] Zak Farmer MD [facility] [place] [address] Nonrheumatic aortic valve stenosis Discharge Disposition: Home [...] PM EST Office Visit Cardiology at [address] [place] [address] Neftali Ernandez MD [facility] [place] [address] documented as of this encounter Procedures Procedure [...] questions please contact the health career development counselor that requested your imaging first. ? [...] have questions please contactthe health career development counselor that requested your imaging first. Zak Farmer MD IMG DX ORDERABLES documented in this encounter Visit Diagnoses Diagnosis Nonrheumatic aortic valve stenosis Aortic valve disorders documented in this encounter Care Teams Site Safety Representative Relationship Specialty Start Date End Date Vanessa Christian APRN PCP - General Family Medicine 10/21/23 05/26/24 documented as of this encounter
--- OUTSIDE RECORDS SUMMARY | 2024-06-19 08:25 | XMS_ITS | Encounter Summary ---
Author Organization [facility] [place] [address] Care Team Providers Care Supervisor Smoke Control Name Role Phone Vanessa Christian MAURI Primary Care Provider [phone] Reason for Visit * Auth/Cert (Routine) Specialty [...] MD [facility] [place] [address] [facility] Referral ID Status Reason Start Date Expiration Date Visits Re quested Visits Authorized [id number] 1 1 Encounter Details Date Type Department Care Team (Late st Contact Info) Description 02/03/2024 10:00 AM EDT - 02/03/2024 11:00 AM EDT [place] [address] Saira Lua MD [facility] [place] [address] CARDIAC CATHETERIZATION Social History Tobacco Use Types [...] lbs Follow-up Visits Follow up with your harvest supervisor in 2-4 weeks Access Site 'Black and Blue' and tenderness is expected during the first week Call if you noted a mass (lump) greater than the size of a ellis Call Office with any Questions and if you have any of the following Clarence Lane M.D Interventional Plant Biology Professor Rn Nicu #: [phone] * Attachments The following attachments cannot be sent through Care Everywhere. * CAD (Coronary Artery Disease): General Info ([place]) * Coronary Angiogram: Post-op ([place]) documented in this encounter Medications at Time [...] Lane MD - 02/03/2024 11:48 AM EDT [facility] Interventional Cardiology Adult Pre-Procedure H&P Update: Cardiac Catheterization Karlos Anthony [id number] 1960 Chief Complaint: Aortic stenosis HPI: Mr. [...] is inthe chart Clarence Lane MD Interventional Plant Biology Professor 02/03/24 11:48 AM documented in this encounter Miscellaneous Notes * Brief Op Note - Clarence Lane MD - 02/03/2024 12:51 PM EDT Preliminary Cardiac Catheterization Procedure Note: Patient Name: Karlos Anthony : [id number] MR#: [id number] Case Date: 02/03/2024 Rn Nicu: Surgeon(s) and Role: * Saira Lua MD [...] PM EST Office Visit Cardiology at [address] [address] Neftali Ernandez MD [facility] [place] [address] Scheduled Orders Name Type Priority Associated Diagnoses [...] Modality Other Narrative 02/12/2024 3:47 PM EDT ?[facility] ? Cardiac Catheterization/Intervention Report ? Patient Name: Patenaude, Karlos ? Procedure Date: 02/03/2024 ? A #: [id number] ? Primary Physician: Saira Lua ? Case #: [id number] ? File Name: [id number] ? Catheterization Order Number: [id number] ? [facility] ? Final Report [place], [place] ? Patient Name: ? Karlos Patenaude ? ID#: ?[id number] ? : ?1960 ? Procedure Date: ? [...] present for the entire procedure. ?Dr. Saira uLa M.D. was present during the moderate sedation ?intraservice time as documented by the sedation nurse. ??Case time = 00:18. ?Dr. Saira Lua M.D. performed the coronary angiography. ? Emad Florian Lua. ? Electronically Signed by: Saira Lua M.D. ? Report Finalized: 02/12/2024 ??15:43 ? Procedure Note Saira Lua MD - 02/12/2024 [facility] Cardiac Catheterization/Intervention Report Patient Name: Karlos Anthony Procedure Date: 02/03/2024 A #: [id number] Primary Physician: Saira Lua Case #: [id number] File Name: [id number] Catheterization Order Number: [id number] [facility] FinalReport [place], [place] Patient Name: Karlos Anthony ID#:[id number] :1960 Procedure Date: February 03, 2024 Case [...] designated as ASA Class III. The [facility] clinical frailty scale is 3: [...] (Bezet) 372 ms MUSE SYSTEM Calculated P Arnot 59 degrees MUSE SYSTEM Calculated R Arnot 34 degrees MUSE SYSTEM Calculated T Arnot 63 degrees MUSE SYSTEM INTERPRETATION Sinus bradycardia [...] MD) documented in this encounter Care Teams Supervisor Smoke Control Relationship Specialty Start Date End Date Vanessa Christian APRN PCP - General Family Medicine 10/21/23 05/26/24 documented as of this encounter
--- OUTSIDE RECORDS SUMMARY | 2024-06-19 08:25 | XMS_ITS | Encounter Summary ---
Author Organization [facility] Address [facility] [place] [address] Care Team Providers Care Director Of Casino Name Role Phone Vanessa Christian HAMMER SETTER Primary Care Provider [phone] Reason for Referral * Diagnostic Test (Routine) - Closed Specialty Diagnoses / Procedures Referred By Contac t Referred To Contact Radiology Diagnoses Nonrheumatic aortic valve stenosis Procedures CT Chest wo Contrast (Generic) Louisa Reid PA [facility] [place] [address] [facility] [place] [address] Referral ID Status Reason Start Date Expiration Date V isits Requested Visits Authorized [id number] Closed Specialty Service Requested 01/10/2024 07/11/2025 1 1 Encounter Details Date Type Department Care Team (Late st Contact Info) Description 01/09/2024 [place] [address] Zak Farmer MD [facility] [place] [address] Nonrheumatic aortic valve stenosis Social History Tobacco [...] PM EST Office Visit Cardiology at [address] [place] [address] Neftali Ernandez MD [facility] [place] [address] documented as of this encounter Results * CT Chest wo Contrast (Generic) (02/03/2024 7:44 AM EDT) WORKSTATION ID [id number] RAD Anatomical Region Laterality Modality Chest Computed [...] questions please contact the health critical care transport nurse that requested your imaging first. ? Electronically signed by: Rogerio Wright MD, [facility] ([phone]), at 02/03/2024 10:00 AM Narrative 02/03/2024 10:00 [...] nodule along the minor fissure (series 302 [id number]) and a 8 mm right lower lobe [...] have questions please contactthe health critical care transport nurse that requested your imaging first. Electronically signed by: Rogerio Wright MD, [facility]([phone]), at 02/03/2024 10:00 AM Zak Farmer MD IMG CT ORDERABLES documented in this encounter Visit Diagnoses Diagnosis Nonrheumatic aortic valve stenosis Aortic valve disorders Nonrheumatic aortic valve stenosis Aortic valve disorders documented in this encounter Care Teams Director Of Casino Relationship Specialty Start Date End Date Vanessa Christian APRN PCP - General Family Medicine 10/21/23 05/26/24 documented as of this encounter
--- OUTSIDE RECORDS SUMMARY | 2024-06-19 08:25 | XMS_ITS | Encounter Summary ---
Author Organization [facility] [place] [address] Care Team Providers Care Microbiology Instructor Name Role Phone Vanessa Christian MAURI Primary Care Provider [phone] Reason for Visit * Auth/Cert (Routine) Specialty [...] W RHC (WRVU 5.9) Rima Dickinson MD [facility] [place] [address] [facility] Referral ID Status Reason Start Date Expiration Date Visits Re quested Visits Authorized [id number] 1 1 Encounter Details Date Type Department Care Team (Latest Contact Info) Description 02/03/2024 8:06 AM EDT - 02/03/2024 2:54 PM EDT Hospital Encounter [place] [address] Rima Dickinson MD [facility] [place] [address] Screening for cardiovascular condition; Aortic valve stenosis, [...] lbs Follow-up Visits Follow up with your supervisor purification in 2-4 weeks Access Site 'Black and Blue' and tenderness is expected during the first week Call if you noted a mass (lump) greater than the size of a ellis Call Office with any Questions and if you have any of the following Clarence Lane M.D Interventional Admissions Evaluator Fitness Coach #: [phone] * Attachments The following attachments cannot be sent through Care Everywhere. * CAD (Coronary Artery Disease): General Info (Emirati) * Coronary Angiogram: Post-op (Emirati) documented in this encounter Medications at Time [...] Lane MD - 02/03/2024 11:48 AM EDT [facility] Interventional Cardiology Adult Pre-Procedure H&P Update: Cardiac Catheterization Karlos Anthony [id number] 1960 Chief Complaint: Aortic stenosis HPI: Mr. [...] is inthe chart Clarence Lane MD Interventional Admissions Evaluator 02/03/24 11:48 AM documented in this encounter Miscellaneous Notes * Brief Op Note - Clarence Lane MD - 02/03/2024 12:51 PM EDT Preliminary Cardiac Catheterization Procedure Note: Patient Name: Karlos Anthony : [id number] MR#: [id number] Case Date: 02/03/2024 Fitness Coach: Surgeon(s) and Role: * Saira Lua MD [...] 3:00 PM EST Office Visit Cardiology at [address] [address] Neftali Ernandez MD [facility] [place] [address] Scheduled Orders Name Type Priority Associated Diagnoses [...] Other Narrative 02/12/2024 3:47 PM EDT ?[facility] ? Cardiac Catheterization/Intervention Report ? Patient Name: Patenaude, Karlos ? Procedure Date: 02/03/2024 ? A #: [id number] ? Primary Physician: Saira Lua ? Case #: [id number] ? File Name: [id number] ? Catheterization Order Number: [id number] ? [facility] ? Final Report [place], [place] ? Patient Name: ? Karlos Patenaude ? ID#: ?[id number] ? : ?1960 ? Procedure Date: ? [...] Note Saira Lua MD - 02/12/2024 [facility] Cardiac Catheterization/Intervention Report Patient Name: Karlos Anthony Procedure Date: 02/03/2024 A #: [id number] Primary Physician: Saira Lua Case #: [id number] File Name: [id number] Catheterization Order Number: [id number] [facility] FinalReport [place], [place] Patient Name: Karlos Anthony ID#:[id number] :1960 Procedure Date: February 03, 2024 Case [...] as ASA Class III. The [facility] clinical frailty scale is 3: Managing [...] (Bezet) 372 ms MUSE SYSTEM Calculated P [place] 59 degrees MUSE SYSTEM Calculated R [place] 34 degrees MUSE SYSTEM Calculated T [place] 63 degrees MUSE SYSTEM INTERPRETATION Sinus bradycardia [...] (Intra-Procedure), Routine 1227 (Given - Provid er: Rgoerio Oliveros) heparin (porcine) (1,000 units/mL) injection PRN, [...] MD) documented in this encounter Care Teams Microbiology Instructor Relationship Specialty Start Date End Date Vanessa Christian APRN PCP - General Family Medicine 10/21/23 05/26/24 documented as of this encounter
--- OUTSIDE RECORDS SUMMARY | 2024-06-19 08:25 | XMS_ITS | Encounter Summary ---
Author Organization [facility] [place] [address] Care Team Providers Care Entry Driver Operator Name Role Phone Vanessa Christian Lane DOTSON Primary Care Provider [phone] Reason for Referral * Diagnostic Test (Routine) - Closed Specialty Diagnoses / Procedures Referred By Contac t Referred To Contact Radiology Diagnoses Nonrheumatic aortic valve stenosis Procedures CT Chest wo Contrast (Generic) Louisa Cho PA [facility] DR C[place]IOTH[place]IC [place] [address] [facility] [place] [address] Referral ID Status Reason Start Date Expiration Date V isits Requested Visits Authorized [id number] Closed Specialty Service Requested 01/10/2024 07/11/2025 1 1 Reason for Visit * Diagnostic Test (Routine) - Closed Specialty Diagnoses / Procedures Referred By Contac t Referred To Contact Radiology Diagnoses Nonrheumatic aortic valve stenosis Procedures CT Chest wo Contrast (Generic) Louisa Cho PA [facility] [place]AC[place] [address] [facility] [place] [address] Referral ID Status Reason Start Date Expiration Date V isits Requested Visits Authorized [id number] Closed Specialty Service Requested 01/10/2024 07/11/2025 1 1 Encounter Details Date Type Department Care Team (Latest Contact Info) Description 02/03/2024 7:36 AM EDT - 02/03/2024 8:05 AM EDT Hospital Encounter CT Scan at [facility] [place] [address] Zak Farmer MD [facility] [place] [address] Nonrheumatic aortic valve stenosis Discharge Disposition: Home Social History Tobacco Use Types Packs/Day Years Used Date Smoking Tobacco: Former Cigarettes Smokeless Tobacco: Never Comments:Quit 15 + years ago Alcohol Use Standard Drinks/Week Comments Yes 0 (1 standard drink = 0.6 oz pur e alcohol) rare [facility] Inpatient Questions Answer Date Recorded Does [...] PM EST Office Visit Cardiology at [address] [place] [address] Neftali Ernandez MD [facility] [place] [address] documented as of this encounter Procedures Procedure Name Priority Date/Time Associated Diagnosis Comments CT CHEST WO CONTRAST (GENERIC) Routine 02/03/2024 7:44 AM EDT Nonrheumatic aortic valve stenosis documented in this encounter Results * CT Chest wo Contrast (Generic) (02/03/2024 7:44 AM EDT) [employer] WORKSTATION ID [id number] DH RAD Anatomical Region Laterality Modality Chest [...] questions please contact the health home care chaplain that requested your imaging first. ? Electronically signed by: Rogerio Wright MD, [facility] ([phone]), at 02/03/2024 10:00 AM Narrative 02/03/2024 10:00 [...] nodule along the minor fissure (series 302 [id number]) and a 8 mm right lower lobe [...] have questions please contactthe health home care chaplain that requested your imaging first. Electronically signed by: Rogerio Wright MD, [facility]([phone]), at 02/03/2024 10:00 AM Zak Farmer MD IMG CT ORDERABLES documented in this encounter Visit Diagnoses Diagnosis Nonrheumatic aortic valve stenosis Aortic valve disorders documented in this encounter Care Teams Entry Driver Operator Relationship Specialty Start Date End Date Vanessa Christian APRN PCP - General Family Medicine 10/21/23 05/26/24 documented as of this encounter
--- OUTSIDE RECORDS SUMMARY | 2024-06-19 08:25 | XMS_ITS | Encounter Summary ---
Author Organization [facility] Address [facility] Ivana [address] [id number] Care Team Providers Care Dice Maker Name Role Phone Vanessa Christian MAURI Primary Care Provider [phone] Reason for Referral * Consultation (Routine) - Closed Specialty Diagnoses / Procedures Referred By Contac t Referred To Contact Cardiac Surgery Diagnoses Nonrheumatic aortic valve stenosis significant - TAVR ( defers to Card Surg d/t age) Errol Loya MD [facility] [place] [address] Zak Farmer MD [facility] [place] [address] Referral ID Status Reason Start Date Expiration Date V isits Requested Visits Authorized [id number] Closed Consult, Test & Treat 10/21/2023 10/20/2024 1 1 Reason for Visit * Reason Comments Chest Pain Shortness of Breath Aortic Stenosis Encounter Details Date Type Department Care Team (Late st Contact Info) Description 10/21/2023 1:20 PM EST Office Visit Cardiology at [address] [address] Errol Loya MD [facility] [place] [address] Nonrheumatic aortic valve stenosis Social History Tobacco [...] List Diagnosis Aortic stenosis 12/2022 TTE ([facility]): VITA 0.8-0.9 cm2 (MG 28 mmHg, DOI 3.6 m/s, SVI 35 cc/m2). Trace regurgitation. Normal bi-v s/f, no other valve findings Gastroesophageal reflux Nevus of face Right congregational Hypertension HLD (hyperlipidemia) MEDICATIONS: Current Outpatient Medications [...] the meantime will refer to T at [facility] for further evaluation. Logistics and preliminary review [...] the meantime will refer to T at [facility] for further evaluation. Logistics and preliminary review [...] PM EST Office Visit Cardiology at [address] [place] [address] Errol Loya MD [facility] [place] [address] Scheduled Referrals Name Type Priority Associated Diagnoses Order Schedule Amb Referral to Structural Heart Outpatient Referral Routine Nonrheumatic aortic valve stenosis Ordered: 10/21/2023 documented as of this encounter Visit Diagnoses Diagnosis Nonrheumatic aortic valve stenosis Aortic valve disorders documented in this encounter Care Teams Dice Maker Relationship Specialty Start Date End Date Vanessa Christian APRN PCP - General Family Medicine 10/21/23 05/26/24 documented as of this encounter
--- OUTSIDE RECORDS SUMMARY | 2024-06-19 08:25 | XMS_ITS | Encounter Summary ---
Author Organization [facility] Address [facility] [place] [address] Care Team Providers Care Unit Support Representative Name Role Phone Vanessa Christian MAURI Primary Care Provider [phone] Encounter Details Date Type Department Care Team (Late st Contact Info) Description 02/14/2024 Orders Only [place]iac [place] [address] Zak Farmer MD [facility] CARDIOTHORACIC [place] [address] Coronary artery disease, unspecified vessel or lesion type, unspecified whether angina present, unspecified whether [place] or transplanted heart (Primary Dx) Social History [...] PM EST Office Visit Cardiology at [address] [place] [address] Neftali Ernandez MD [facility] CARDIOLOGY [place], [place] [address] documented as of this encounter Results * EKG 12 Lead (03/12/2024 2:35 PM EDT) Ventricular rate 59 BPM MUSE SYSTEM Atrial Rate 59 BPM MUSE SYSTEM P-R Interval 190 ms MUSE SYSTEM QRS Duration 92 ms MUSE SYSTEM Q-T Interval 406 ms MUSE SYSTEM QTC Calculated (Bezet) 401 ms MUSE SYSTEM Calculated P [place] -12 degrees MUSE SYSTEM Calculated R [place] 24 degrees MUSE SYSTEM Calculated T [place] 74 degrees MUSE SYSTEM INTERPRETATION Sinus bradycardia T wave abnormality, consider anterior ischemia Abnormal ECG When compared with ECG of 17-FEB-2024 13:24, GA interval has decreased T wave inversion now evident in Anterior leads Confirmed by Paul Guzman ([id number]) on 03/15/2024 8:36:23 AM MUSE SYSTEM 03/12/2024 2:35 PM EDT 03/15/2024 8:36 AM EDT Zak Farmer MD ECG ORDERABLES MUSE SYSTEM * XR Chest PA & Lateral (Generic) (03/12/2024 1:42 PM EDT) WORKSTATION ID [id number] RAD Anatomical Region Laterality Modality Chest N/A [...] have questions please contact the health healthcare administration intern that requested your imaging first. ? 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 Zak Farmer MD IMG DX ORDERABLES documented in this encounter Visit Diagnoses Diagnosis Coronary artery disease, unspecified vessel or lesion type, unspecified whether angina present, unspecified whether [place] or transplanted heart- Primary Coronary artery disease, unspecified vessel or lesion type, unspecified whether angina present, unspecified whether [place] or transplanted heart documented in this encounter Care Teams Unit Support Representative Relationship Specialty Start Date End Date Vanessa Christian APRN PCP - General Family Medicine 10/21/23 05/26/24 documented as of this encounter
--- OUTSIDE RECORDS SUMMARY | 2024-06-19 08:25 | XMS_ITS | Encounter Summary ---
Author Organization [facility] [place] [address] Care Team Providers Care Surgical Nurse Name Role Phone Vanessa Christian APRN Primary Care Provider [phone] Encounter Details Date Type Department Care Team (Late st Contact Info) Description 10/21/2023 Abstract Cardiology at [address] [place] [address] Adam Mayes RN Social History Tobacco Use [...] 3:00 PM EST Office Visit Cardiology at [address] [place] [address] Neftali Ernandez MD [facility] [place] [address] documented as of this encounter Visit Diagnoses Not on filedocumented in this encounter Care Teams Surgical Nurse Relationship Specialty Start Date End Date Vanessa Christian APRN PCP - General Family Medicine 10/21/23 05/26/24 documented as of this encounter
--- OUTSIDE RECORDS SUMMARY | 2024-06-19 08:25 | XMS_ITS | Encounter Summary ---
Author Organization [facility] [place] [address] Care Team Providers Care Electronic Console Display Operator Name Role Phone Victor M Lafleur MD Primary Care Provider [phone] Encounter Details Date Type Department Care Team (Late st Contact Info) Description 09/26/2023 Abstract Cardiology at [address] [address] Karen Billy, RN Nonrheumatic aortic [...] PM EST Office Visit Cardiology at [address] [place] [address] Neftali Ernandez MD [facility] [place] [address] documented as of this encounter Visit Diagnoses Diagnosis Nonrheumatic aortic valve stenosis Aortic valve disorders Nevus of face Benign neoplasm of skin of other and unspecified parts of face documented in this encounter Care Teams Electronic Console Display Operator Relationship Specialty Start Date End Date Victor M Lafleur MD PCP - General 10/02/13 10/20/23 documented as of this encounter
--- OUTSIDE RECORDS SUMMARY | 2024-06-19 08:25 | XMS_ITS | Encounter Summary ---
Author Organization [facility] [place] [address] Care Team Providers Care Customer Pricing Manager Name Role Phone Vanessa Christian APRN Primary Care Provider [phone] Encounter Details Date Type Department Care Team [...] 3:00 PM EST Office Visit Cardiology at [address] [place] [phone] Neftali Ernandez MD [facility] [place] [address] documented as of this encounter Visit Diagnoses Not on filedocumented in this encounter Care Teams Customer Pricing Manager Relationship Specialty Start Date End Date Vanessa Christian APRN PCP - General Family Medicine 10/21/23 05/26/24 documented as of this encounter
--- OUTSIDE RECORDS SUMMARY | 2024-06-19 08:25 | XMS_ITS | Encounter Summary ---
Author Organization [facility] Address [facility] [place] [address] Care Team Providers Care Copper Etcher Name Role Phone Vanessa Christian MAURI Primary Care Provider [phone] Reason for Visit * Consultation (Routine) - Closed Specialty Diagnoses / Procedures Referred By Contac t Referred To Contact Cardiac Surgery Diagnoses Nonrheumatic aortic valve stenosis significant - TAVR ( defers to Card Surg d/t age) Neftali Ernandez MD [facility] [place] [address] Zak Farmer MD [facility] [place] [address] Referral ID Status Reason Start Date Expiration Date V isits Requested Visits Authorized [id number] Closed Consult, Test & Treat 10/21/2023 10/20/2024 1 1 Encounter Details Date Type Department Care Team (Late st Contact Info) Description 01/09/2024 1:40 PM EDT Office [place] [address] Zak Farmer MD [facility] [place] [address] Nonrheumatic aortic valve stenosis Social [...] office. Best personal regards, Zak Farmer MD [phone] In aggregate 55 minutes were spent evaluating [...] PM EST Office Visit Cardiology at [address] [place] [phone] Neftali Ernandez MD [facility] [place] [address] documented as of this encounter Results * [...] ORDERABLE S [facility] [place] [address] * Hepatic Function Panel (01/09/2024 2:58 PM EDT) Pathologist [facility] Protein, Total 6.7 6.1 - 8.0 g/dL [...] Organization Address [facility] Co de Phone Number [facility] [place] [address] * Prothrombin Time (01/09/2024 2:58 PM EDT) [facility] Prothrombin Time 10.6 9.4 - 12.5 sec [...] Organization Address [facility]/ZIP Co de Phone Number [facility] [place] [address] * Type and Screen Future Surgery, [facility] SAME DAY PROGRAM ONLY) [...] Phone Number [facility] [place] [address] documented in this encounter Visit Diagnoses Diagnosis Nonrheumatic aortic valve stenosis Aortic valve disorders Nonrheumatic aortic valve stenosis Aortic valve disorders documented in this encounter Care Teams Copper Etcher Relationship Specialty Start Date End Date Vanessa Christian APRN PCP - General Family Medicine 10/21/23 05/26/24 documented as of this encounter
--- OUTSIDE RECORDS SUMMARY | 2024-06-19 08:25 | XMS_ITS | Encounter Summary ---
Author Organization [facility] [place] [address] Care Team Providers Care Shipping Track Supervisor Name Role Phone Vanessa Christian Lane DOTSON Primary Care Provider [phone] Encounter Details Date Type Department Care Team (Late st Contact Info) Description 01/09/2024 2:30 PM EDT Clinical Support Same Day [place] [address] Social History Tobacco Use Types Packs/Day Years Used Date Smoking Tobacco: Former Cigarettes Smokeless Tobacco: Never Comments:Quit 15 + years ago Alcohol Use Standard Drinks/Week Comments Yes 0 (1 standard drink = 0.6 oz pur e alcohol) rare [facility] Inpatient Questions Answer Date Recorded Prevent [...] you tube link for a video about [facility] cardiac surgery. Instructed to bring the booklet [...] type and screen performed while in the [facility]. Sent to Radiology for chest x-ray. Special medication instructions: None Procedure date: not booked. Darian documented in this encounter Plan of Treatment Upcoming Encounters Date Type Department Care Team (Late st Contact Info) Description 11/30/2024 3:00 PM EST Office Visit Cardiology at [address] [place] [address] Neftali Ernandez MD [facility] [place] [address] documented as of this encounter Visit Diagnoses Not on filedocumented in this encounter Care Teams Shipping Track Supervisor Relationship Specialty Start Date End Date Vanessa Christian APRN PCP - General Family Medicine 10/21/23 05/26/24 documented as of this encounter
--- OUTSIDE RECORDS SUMMARY | 2024-06-19 08:25 | XMS_ITS | Encounter Summary ---
[place] [address] Care Team Providers Care Burr Mill Operator Name Role Phone Victor M Lafleur MD Primary Care Provider [phone] Reason for Visit * Reason Onset Date Comments Referral 09/20/2023 Encounter Details Date Type Department Care Team (Late st Contact Info) Description 09/20/2023 Telephone Cardiology at [address] [address] Karen Billy, radio broadcaster Social History Tobacco Use Types Packs/Day Years [...] PM EST Office Visit Cardiology at [address] [place] [address] Neftali Ernandez MD [facility] [place] [address] documented as of this encounter Visit Diagnoses Not on filedocumented in this encounter Care Teams Burr Mill Operator Relationship Specialty Start Date End Date Victor M Lafleur MD PCP - General 10/02/13 10/20/23 documented as of this encounter
--- OUTSIDE RECORDS SUMMARY | 2024-06-19 08:25 | XMS_ITS | Encounter Summary ---
Author Organization [facility] [place] [address] Care Team Providers Care Machine Engraver Name Role Phone Vanessa Christian MAURI Primary Care Provider [phone] Encounter Details Date Type Department Care Team (Latest Contact Info) Description 01/09/2024 3:00 PM EDT Laboratory [place] [phone] Nonrheumatic aortic valve stenosis Social History Tobacco [...] Office Visit Cardiology at [address] [phone] Neftali Ernandez MD [facility] [address] [place] [address] documented as of this encounter Procedures Procedure Name Priority Date/Time Associated Diagnosis Comments ABORH RECHECK STATUS Routine 01/09/2024 2:58 PM EDT HEMOGRAM Routine 01/09/2024 2:58 PM EDT Nonrheumatic aortic valve stenosis DIFFERENTIAL, AUTOMATED Routine 01/09/2024 2:58 PM EDT Nonrheumatic aortic valve stenosis TYPE AND SCREEN, SDP (FUTURE SURGERY, [facility] SAME DAY PROGRAM ONLY) Routine [...] BANK LAB CECILIO ALEMAN [facility] [place] [address] * Differential, Automated (01/09/2024 2:58 PM EDT) Neutrophil % 70.5 % [facility] Neutrophil Absolute 4.34 1.70 - 6.10 x10(3)/[facility] LABORATORY Lymph % 18.9 % [facility] Lymphocytes Abs 1.2 0.9 - 3.2 x10(3)/[facility] LABORATORY Monocyte % 8.0 % [facility] Monocyte Abs 0.5 0.3 - 0.9 x10(3)/[facility] LABORATORY Eos % 1.6 % [facility] Eosinophils Abs 0.1 0.0 - 0.4 x10(3)/[facility] LABORATORY Basophil % 0.5 % [facility] Baso Absolute 0.0 0.0 - 0.1 x10(3)/[facility] LABORATORY Immature Gran % 0.50 % [facility] Comment: Immature granulocytes(IG's)percentage and absolute count will include metamyelocytes, myelocytes, and promyelocytes. Blood smears from CBCs yielding IG's will be scanned manually for concordance. If this scan disagrees with the automated IG or if promyelocytes are noted, a manual differential will be performed. Immature Gran Absolute 0.03 0.00 - 0.04 x10(3)/[facility] LABORATORY Blood 01/09/2024 2:58 PM EDT 01/09/2024 3:03 PM EDT Narrative Resulting Agency Comment Spec In Lab Zak Farmer MD HEMATOLOGY ORDERABL ES [facility] [place] [address] * Hemogram (01/09/2024 2:58 PM EDT) White Blood Cell 6.2 4.0 - 9.5 x10(3)/[facility] LABORATORY Red Blood Cell 5.53 4.58 - 5.54 x10(6)/[facility] LABORATORY Hemoglobin 16.1 13.7 - 16.5 g/dL [facility] Hematocrit 46.9 40.5 - 48.5 % [facility] Mean Cell Volume 84.8 82.9 - 93.1 fL [facility] Mean Cell Hemoglobin 29.1 27.5 - 32.1 pg [facility] Mean Cell Hemoglobin Concentration 34.3 32.0 - 35.7 g/dL [facility] Platelet 187 145 - 357 x10(3)/[facility] LABORATORY RDW Standard Deviation 39.2 36.0 - 45.0 fL [facility] RDW coefficient of variation 12.6 11.4 - 13.8 % [facility] Mean Platelet Volume 9.5 7.6 - 12.9 fL [facility] NRBC% auto 0.0 % [facility] NRBC Absolute 0.000 0.000 - 0.000 x10(3)/[facility] LABORATORY Blood 01/09/2024 2:58 PM EDT 01/09/2024 3:03 PM EDT Narrative Resulting Agency Comment Spec In Lab Zak Farmer MD HEMATOLOGY ORDERABL ES [facility] [place] [address] * Basic Metabolic Panel (non-fasting) (01/09/2024 2:58 [...] MD CHEMISTRY ORDERABLE S [facility] [place] [address] * Hepatic Function Panel (01/09/2024 2:58 PM [...] Performing Organization Address [facility] Co de Phone Number [facility] [place] [address] * Prothrombin Time (01/09/2024 2:58 PM EDT) [...] ORDERABL ES Performing Organization Address [facility] Co de Phone Number [facility] [place] [address] * Type and Screen Future Surgery, [facility] SAME DAY PROGRAM ONLY) (01/09/2024 2:58 PM EDT) ABORH Type O NEGATIVE [facility] Patient BB History Not Found [facility] Expires at 2359 on: 02-20-2024 [facility] Ab Screen Interp Negative [facility] Blood 01/09/2024 2:58 PM EDT 01/09/2024 2:58 PM EDT Narrative Resulting Agency Comment Spec In Lab Zak Farmer MD BLOOD BANK LAB ORDE RABLES Performing Organization Address City/[facility]/[place] [address] documented in this encounter Visit Diagnoses Diagnosis Nonrheumatic aortic valve stenosis Aortic valve disorders documented in this encounter Care Teams Machine Engraver Relationship Specialty Start Date End Date Vanessa Christian APRN PCP - General Family Medicine 10/21/23 05/26/24 documented as of this encounter
--- OUTSIDE RECORDS SUMMARY | 2024-06-19 08:25 | XMS_ITS | Encounter Summary ---
Author Organization [facility] [place] [address] Care Team Providers Care Catering Coordinator Name Role Phone Vanessa Christian MAURI Primary Care Provider [phone] Encounter Details Date Type Department Care Team (Late st Contact Info) Description 01/10/2024 Orders [place] [phone] Lawson Napoles PA [facility] [place] [address] Screening for cardiovascular condition; Aortic valve stenosis, [...] PM EST Office Visit Cardiology at [address] [place] [phone] Neftali Ernandez MD [facility] [place] [address] documented as of this encounter Visit Diagnoses Diagnosis Screening for cardiovascular condition Screening for other and unspecified cardiovascular conditions Aortic valve stenosis, etiology of cardiac valve disease unspecified documented in this encounter Care Teams Catering Coordinator Relationship Specialty Start Date End Date Vanessa Christian APRN PCP - General Family Medicine 10/21/23 05/26/24 documented as of this encounter
--- OUTSIDE RECORDS SUMMARY | 2024-06-19 08:26 | XMS_ITS | Data Portability ---
Author Organization [place] - [facility] Address [address] [place] [address] Care Team Providers Care Hand Twister Name Role Phone APARNA JORDAN Primary Care Provider Assessment No assessment recorded. Plan of Treatment Reminders Order Date Submit Date Provider Last Modified By Organization Details Last Modified Time Details Appointments None recorded . Lab magnesiu m, serum or plasma 024 12/18/19 24 [email or web address] [facility] (Registration ), [address] [place] [address] [place], [address], 4 14:25:25 BMP, serum or plasma 024 12/18/19 24 [email or web address] [facility] (Registration ), [address] [place] [address] [place], [address], 4 14:25:24 Referral None recorded . Procedures None recorded . Surgeries None recorded . Imaging None recorded . Medication Orders None recorded . Patient TargetsNo targets recorded. Patient Instructions Encounter Date Encounter Id Patient Instructions Last Modified By Organization Details Last Modified Time 09/19/2023 [id number] SCHEDULE FOLLOW UP IN 3 MONTHS IF YOU DONT HEAR FROM THE CARDIOLOGY DEPT THIS WEEK CALL [facility] PHOTO MANAGER AND LET THEM KNOW IF YOUR BREATHING GETS WORSE- GO TO THE ER, DONT OVER DO THINGS PHYSICALLY EXPECT A CALL FROM SARA ZAFAR RE: UPDATING YOUR POWER OF MANAGER UNIX (NEED 2 WITNESSED SIGNATURES) Not available 09/19/2023 09:25:07 12/18/2023 [id number] Karlos: expect a call from the STructural heart team at [facility] drink at least 6 glasses of water a day. checking kidney function and magnesium labs today will mail home. follow up in 3 months for BPH, Aortic stenosis. 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 for Referral Proof Operator Referral for Roland ateral hearing loss Referring Physician: Aparna Jordan, Family Medicine, Encounter Date: 02/26/2024 Results Created Date Observation Date Name Description Value Unit Range Abnormal Flag Note LastModifiedBy Organization Detail LastModifiedTime 12/18/19 24 12/18/2023 LASIC METAB OLIC PANEL calcium 9.3 mg/dL 8.5-10 .1 normal Not Available [address] [place], [address] 12/18/2023 17:09:55 12/18/19 24 12/18/2023 LASIC METAB OLIC PANEL glucose 90 mg/dL 74-106 normal Not Available Baljit montemayor [address] [place], [address] 12/18/2023 17:09:55 12/18/19 24 12/18/2023 LASIC METAB OLIC PANEL BUN 14 mg/dL 7-18 normal Not Available Baljit montemayor [address] [place], [address] 12/18/2023 17:09:55 12/18/19 24 12/18/2023 LASIC METAB OLIC PANEL creatinine 1.0 mg/dL 0.70-1 .30 normal Not Available [address] [place], [address] 12/18/2023 17:09:55 12/18/19 24 12/18/2023 LASIC METAB [...] young er-ag ed adult s. Not Available [address] [place], [address] 12/18/2023 17:09:55 12/18/19 24 12/18/2023 LASIC METAB OLIC PANEL sodium 139 mmol/ L 136-14 5 normal Not Available [address] [place], [address] 12/18/2023 17:09:55 12/18/19 24 12/18/2023 LASIC METAB OLIC PANEL potassium 4.9 mmol/ L 3.5-5. 1 normal Not Available [address] [place], [address] 12/18/2023 17:09:55 12/18/19 24 12/18/2023 LASIC METAB OLIC PANEL chloride 104 mmol/ L 98-107 normal Not Available [address] [place], [address] 12/18/2023 17:09:55 12/18/19 24 12/18/2023 LASIC METAB OLIC PANEL CO2 30.9 mmol/ L 21.0-3 2.0 normal Not Available [address] [place], [address] 12/18/2023 17:09:55 12/18/19 24 12/18/2023 LASIC METAB OLIC PANEL anion gap 4.1 mmol/ L 3-11 normal Not Available [address] [place], [address] 12/18/2023 17:09:55 12/18/19 24 12/18/2023 MAGNE SIUM magnesium 1.8 mg/dL 1.8-2. 4 normal Not Available [address] [place] [place], [address] 12/18/2023 17:09:56 09/11/20 23 12/05/2022 trans -thor acic echoc ardio gram (TTE) (PROC ) No observ ation record ed. [email or web address] [facility] Xray [address] , [place], [address], 09/13/2023 09:29:52 09/11/20 23 06/01/2022 XR, hip, unila teral No observ ation record ed. [email or web address] Not Available 2022 09:29:19 09/11/20 23 12/06/2019 US, echoc ardio gram No observ ation record ed. [email or web address] [facility]- Cardiology [facility], [place], [address], 09/13/2023 09:28:49 Result Notes None recorded. Problems Name Problem SNOMED Code Status Onset Date Resolution Date Notes Provider Name and Address Organization Details Recorded Time Gastroes ophageal reflux disease without esophagi tis 524486188 Active 2022 Problem Code: K21.9; Problem Code Type: ICD-10; Not Available [facility] 4 05:35:57 Glaucoma 78307247 Active 2022 Problem Code: H40.9; Problem Code Type: ICD-10; Not Available [facility] 4 05:35:57 Hyperlip idemia 79548494 Active 2022 Problem Code: E78.5; Problem Code Type: ICD-10; Not Available [facility] 4 05:35:57 [facility] hyperten niels 09875891 Active 2022 Problem Code: I10; Problem Code Type: ICD-10; Not Available [facility] 4 05:35:57 Pain of left hip joint 49792932170 9100 Active 2022 Problem Code: M25.552; Problem Code Type: ICD-10; Not Available [facility] 4 05:35:57 Idiopath ic osteoart hritis 656545837 Active 2022 Problem Code: M16.12; Problem Code Type: ICD-10; Not Available [facility] 4 05:35:57 Inguinal hernia 470258354 Active 2022 Problem Code: K40.90; Problem Code Type: ICD-10; Not Available [facility] 4 05:35:57 Heart murmur 41679072 Active 2022 Problem Code: R01.1; Problem Code Type: ICD-10; Not Available [facility] 4 05:35:57 Dyspnea 962299144 Active 2022 Problem Code: R06.09; Problem Code Type: ICD-10; Not Available [facility] 4 05:35:57 Chest pain 88983213 Active 2022 Problem Code: R07.89; Problem Code Type: ICD-10; Not Available [facility] 4 05:35:57 Melanocy tic nevus 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 Active 2022 Problem Code: D22.9; Problem Code Type: ICD-10; Not Available [facility] 4 05:35:57 Aortic stenosis , non-rheu matic 073718572 Active 2022 Problem Code: I35.0; Problem Code Type: ICD-10; Not Available [facility] 4 05:35:58 Aortic stenosis , non-rheu matic 339289783 Completed 202208/14/2023 Problem Code: I35.0; Problem Code Type: ICD-10; Not Available [facility] 4 05:35:58 Indigest ion 222242356 Active 2023 GLORIA CAMP LPN null, [facility] 4 08:48:57 Coronary artery bypass grafts x 3 Active 2023 Kelly Duran RN [facility], [facility] 4 10:30:01 At increase d risk of atrial fibrilla tion 346980031 Active [address], [place], [address] , [facility] 4 13:52:01 Anemia 757482740 Active [address], [place], [address] , [facility] 4 13:54:39 Problem Notes None recorded. Procedures Surgical History Date Name Laterality Status Provider Name and Address Organization Details Recorded Time coronary artery bypass graft completed Hudson Reeder MA [facility], [place] - [facility]. 03/04/2024 14:54:09 Imaging Results Imaging Date Name Status LastModified by Organization Details LastModified Time 12/05/2022 trans-thoracic echocardiogram (TTE) (PROC) completed [address] Xray [address] , [place], [address], 09/13/2023 09:29:52 06/01/2022 XR, hip, unilateral [place] [address] Information not available 09/13/2023 09:29:19 12/06/2019 US, echocardiogram completed [address]- Cardiology [address], [place], [address], 09/13/2023 09:28:49 Procedure Notes None recorded. Medical [...] es. Take 1 hr prior. Started by [facility]. Not Available Not Available Not Available doxycycli [...] BY MOUTH DAILY 02/24 completed stopped by [facility] Not Available Not Available Not Available brimonidi [...] hours by oral route as needed. active [facility] Not Available Not Available No t Available Aspirin Childrens 81 mg chewable tablet Take 1 tablet by mouth once a day active Not Available Not Available No t Available lisinopri l 5 mg tablet TAKE 1 TABLET BY MOUTH EVERY DAY 02/24 completed stopped by [facility] Not Available Not Available Not Available mupirocin [...] day by oral route. active started by [facility] Not Available Not Available Not Available dorzolami de 2 % (PF) eye drops 1 drop both eyes bid 12/17 completed Not Available Not Available Not Available Vitals Date Recorded Body weight Body mass index (BMI) Body height Heart rate Systolic blood pressure Diastolic blood pressure Provider Name and Address Organization Details Last Updated DateTime 3 24819.7 8 g 23.7 kg/m2 167.64 cm 64 /min 110 mm[Hg] 60 mm[Hg] GLORIA ZOË , [facility], [facility] 3 08:48:49 Date Recorded Body height Body mass index (BMI) Body weight Heart rate Systolic blood pressure Diastolic blood pressure Provider Name and Address Organization Details Last Updated DateTime 4 167.64 cm 24.6 kg/m2 28294.4 4 g 60 /min 112 mm[Hg] 80 mm[Hg] GLORIA CAMP [facility] 4 08:38:13 Date Recorded Body height Body mass index (BMI) Body weight Heart rate Oxygen saturation Oxygen saturation in Arterial blood by Pulse oximetry Systolic blood pressure Diastolic blood pressure Provider Name and Address Organization Details Last Updated DateTime 4 167.64 cm 22.6 kg/m2 23706.6 5 g 63 /min 99 % 99 % 102 mm[Hg] 54 mm[Hg] Hudson Reeder MA [facility] 4 10:27:28 Social History Question Answer Notes LastModified by Organizat ion Details LastModified Time Tobacco Smoking Status Former Smoker Hudson Reeder MA null, [facility] 03/06/2024 10:24:50 Do You Have An Advance Directive? Yes Registered 08/15/23 Updated 01/12/24 Information not available 01/15/2024 When Did You Quit Smoking? 11-15years sincelastc igarette [email or web address] Information not available 03/06/2024 Do You Have A Medical Power Of Retail Advertising Account Executive? Yes Received 08/30/23, Scanned. Copies Sent To [facility] And Patient 09/02/23. Information not available 09/02/2023 What Was The Date Of Your Most Recent Tobacco Screening? 03/06/2024 [email or web address] Information not available 03/06/2024 What Is Your Current Pack Years? 30ormorepa ckyears [email or web address] Information not available 03/06/2024 How Much Tobacco Do You Smoke? 1 PPD [email or web address] Information not available 03/06/2024 How Many Years Have You Smoked Tobacco? 40 [email or web address] Information not available 03/06/2024 Do You Or Have You Ever Used Any Other Forms Of Tobacco Or Nicotine? No [email or web address] Information not available 03/06/2024 Sex: Male Functional [...] Recorded Time Tdap 08/26/2013 completed Not Available [facility] 05:30:17 Td(adult) unspecified formulation 11/21/2022 completed Not Available [facility] 10/18/2023 05:30:17 COVID-19, mRNA, LNP-S, PF, 100 mcg/0.5mL dose or 50 mcg/0.25mL dose 01/24/2021 completed Not Available [facility] 10/18/19 05:30:18 COVID-19, mRNA, LNP-S, PF, 100 mcg/0.5mL dose or 50 mcg/0.25mL dose 02/21/2021 completed Not Available [facility] 10/18/19 05:30:18 COVID-19, mRNA, LNP-S, PF, 100 mcg/0.5mL dose or 50 mcg/0.25mL dose 09/11/2021 completed Not Available [facility] 10/18/19 05:30:18 influenza, unspecified formulation 07/26/2021 completed Not Available [facility] 10/18/2023 05:30:18 influenza, unspecified formulation 07/26/2022 completed Not Available [facility] 10/18/2023 05:30:18 influenza, unspecified formulation 07/28/2020 completed Not Available [facility] 10/18/2023 05:30:18 influenza, unspecified formulation 08/05/2019 completed Not Available [facility] 10/18/2023 05:30:18 influenza, unspecified formulation 08/12/2018 completed Not Available [facility] 10/18/2023 05:30:18 Past Encounters Encounter ID Performer Location Encounter Start Date Encounter Closed Date Diagnosis/Indication Diagnosis SNOMED-CT Code Diagnosis ICD10 Code [id number] [address] [address] 09/19/2023 08:39:51 09/19/2023 09:17:42 Aortic valve stenosis 08290209 I35.0 Essential hypertension 12237243 I10 [id number] [address] [address] 12/18/2023 08:23:47 12/18/2023 09:29:09 Aortic stenosis, non-rheumatic 543894985 I35.0 Essential hypertension 68291956 I10 Nonulcer dyspepsia 51716 07 K30 Cramp in lower leg 36986 8009 R25.2 [id number] TATYANA LEDEZMA MD [address] [address] 03/06/2024 10:15:07 03/06/2024 11:14:28 Postoperative visit 103785120 Z48.89 Aortic rosa m nosis, non-rheumatic 779073096 I35.0 Stented co ronary artery 023686259 Z95.5 At [facility] ed risk of atrial fibrillation 848068459 Z91.89 Anemia 318051731 D64.9 Health Concerns Section Related Observation LastModified by Organization Detai ls LastModified Time None Recorded Concern Status LastModified by Organization Details LastModified Time None Recorded Advance Directives Directive Y: Registered 08/15/23Updated 01/12/24 Payers Encounter Date Sequence Insurance Name Policy Number Policy Alicia Covered Member ID Alicia Member ID Guarantor Name 12/18/2023 1 [facility] [id number] Karlos C Patenaude [id number] Karlos C Patenaude 03/06/2024 1 [place] [id number] Karlos C Patenaude [id number] Karlos C Patenaude Notes Date Note Type Note Provider Name and Address Organization Details Recorded Time 09/19/2023 text/html HPI Notes: 63-year-old man here for follow-up hypertension, severe aortic stenosis., He works full-time at [employer]. He lives at home with his dog. He has not heard from [facility] cardiology? referred mid-August. He did decrease his lisinopril to 5 mg, home SBPs running 110- 138, no change in slight lightheadedness with change position. He does continue to get dyspnea on exertion, denies chest pain, resolves fairly quickly no peripheral edema. 12/05/2022 [facility] transthoracic echocardiogram; there is moderate to severe aortic stenosis with disparate indicators. The calculated valve area is 0.8 cm2 is consistent with severe stenosis. Planimetry confirms valve area to 0.9 cm2. The mean gradient of 28 mmHg and peak velocity of 3.6M/S are consistent with moderate stenosis. There is trivial to mild aortic insufficiency. Aparna lizarraga [place] [employer] [facility], [facility]. 09/19/2023 13:31:38 12/18/2023 text/html HPI Notes: 63-year-old man here for follow-up hypertension, severe aortic stenosis., He works full-time at [employer]. He lives at home with his dog. 12/05/2022 [facility] transthoracic echocardiogram; there is moderate to [...] repair a number of years ago at [facility], it is starting to cause some discomfort. Reports leg cramps at nighttime intermittently, improves when he has a Gatorade during the daytime and Ovaltine in his coffee. Aparna lizarraga [place] [employer] [facility] 12/18/2023 11:43:00 03/06/2024 text/html HPI Notes: Ana Paula marlow is here today for a postop evaluation TATYANA LEDEZMA MD [address], [place], [address], [facility]. 03/08/2024 13:57:34
--- OUTSIDE RECORDS SUMMARY | 2024-06-22 08:18 | XMS_ITS | Clinical Summary ---
Author Organization [facility] Address [address] [place] [address] Care Team Providers Care Card Cutter Helper Name Role Phone Vanessa Christian NP Primary Care Provider [phone] Social History Tobacco Use Types Packs/Day Years [...] COVID-19 Vaccine (2022- season) 2024 Care Teams Card Cutter Helper Relationship Specialty Start Date End Date Vanessa Christian NP [address] [place] [phone] PCP - General Family Medicine - Primary Care 10/07/23
--- OUTSIDE RECORDS SUMMARY | 2024-06-22 08:18 | XMS_ITS | Encounter Summary ---
Author Organization [facility] Address [facility] [place] [address] Care Team Providers Care Funeral Pre Arrangement Counselor Name Role Phone Vanessa Christian MAURI Primary Care Provider [phone] Encounter Details Date Type Department Care Team (Latest Contact Info) Description 03/12/2024 1:30 PM EDT - 03/12/2024 11:59 PM EDT Hospital Encounter XRay at [address] [place] [address] Coronary artery disease, unspecified vessel or lesion type, unspecified whether angina present, unspecified whether unga or transplanted heart Discharge Disposition: Home Social History Tobacco Use Types Packs/Day Years Used Date Smoking Tobacco: Former Cigarettes Smokeless Tobacco: Never Comments:Quit 15 + years ago Alcohol Use Standard Drinks/Week Comments Yes 0 (1 standard drink = 0.6 oz pur e alcohol) rare [facility] Utilities Answer Date Recorded In the past 12 months has e [employer], gas, oil, or water [email or web address] threatened to shut off services in your [...] 3:00 PM EST Office Visit Cardiology at [address] [place] [address] Neftali Ernandez MD [facility] [place] [address] documented as of this encounter Procedures Procedure Name Priority Date/Time Associated Diagnosis Comments XR CHEST PA AND LATERAL Routine 03/12/2024 1:42 PM EDT Coronary artery disease, unspecified vessel or lesion type, unspecified whether angina present, unspecified whether unga or transplanted heart documented in this encounter Results * XR Chest PA & Lateral (Generic) (03/12/2024 1:42 PM EDT) WORKSTATION ID [id number] RAD Anatomical Region Laterality Modality Chest N/A [...] signed by: Augie Sanchez MD, [facility] [phone]), at 03/13/2024 8:28 AM Narrative 03/13/2024 8:28 AM EDT EXAMINATION: XR CHEST PA AND LATERAL (GENERIC) CLINICAL HISTORY: s/p cabg eval effusions I25.10, Atherosclerotic heart disease of unga coronary artery without angina pectoris TECHNIQUE: PA [...] eval effusions I25.10, Atherosclerotic heart disease of unga coronary artery withoutangina pectoris TECHNIQUE: PA and [...] signed by: Augie Sanchez MD, [facility]([phone]), at 03/13/2024 8:28 AM Zak Farmer MD IMG DX ORDERABLES documented in this encounter Visit Diagnoses Diagnosis Coronary artery disease, unspecified vessel or lesion type, unspecified whether angina present, unspecified whether unga or transplanted heart documented in this encounter Care Teams Funeral Pre Arrangement Counselor Relationship Specialty Start Date End Date Vanessa Christian, MAURI PCP - General Family Medicine 10/21/23 05/26/24 documented as of this encounter
--- OUTSIDE RECORDS SUMMARY | 2024-06-22 08:18 | XMS_ITS | Encounter Summary ---
[place] [address] Care Team Providers Care Wet And Dry Sugar Bin Operator Name Role Phone Aparna Jordan MAURI Primary Care Provider [phone] Reason for Referral * Diagnostic Test (Routine) - New Request Specialty Diagnoses / Procedures Referred By Contac t Referred To Contact Cardiology Diagnoses S/P AVR Procedures Echocardiogram Transthoracic Neftali Menon PA [facility] [place] [address] [facility] [place] [address] Referral ID Status Reason Start Date Expiration Date Visits Requested Visits Authorized [id number] New Request Specialty Service Requested 02/24/2024 02/23/2025 1 1 * Consultation (Routine) - Authorized Specialty Diagnoses / Procedures Referred By Contac t Referred To Contact Cardiology Diagnoses S/P AVR Hayder Graham MD [facility] [place] [address] [facility] [address] [place] [address] [place] [address] Referral ID Status Reason Start Date Expiration Date Visits Requested Visits Authorized [id number] Authorized Consult, Test & Treat 02/24/2024 08/22/2024 36 36 * Home Health Care (Routine) - Authorized Specialty Diagnoses / Procedures Referred By Sixto mendoza Referred To Contact Diagnoses S/P AVR Hayder Graham MD [facility] [place] [address] Referral ID Status Reason Start Date Expiration Date Visits Requested Visits Authorized [id number] Authorized Consult, Test & Treat 02/24/2024 08/22/2024 [...] ARTERIAL GRAFT (WRVU 7.93) Hayder Graham MD [facility] [place] [address] [facility] Referral ID Status Reason Start Date Expiration Date Visits Re quested Visits Authorized [id number] 1 1 Encounter Details Date Type Department Care Team (Latest Contact Info) Description 02/17/2024 5:43 AM EDT - 02/24/2024 11:23 AM EDT Hospital Encounter Heart and Vascular Unit Level 4 [place] [address] Hayder Graham MD [facility] [place] [address] S/P AVR (Primary Dx); Aortic valve stenosis, [...] Patient Age: 63 y.o. Birthdate: 1960 Language: Comoran Race: White Ethnicity: Not nor Admit Date: 02/17/2024 Discharge Date: 02/24/24 Attending Physician: Hayder Graham MD Follow-up Recommendations for Providers: Please continue routine management of cardiovascular risk factors including blood pressure, lipids,glucose, etc. Please note any changes to medications. Patient to follow up with PCP, Aparna Jordan APRN, in 1-2 weeks. Patient to follow up with Underwriting Intern, Neftali Ernandez MD , in 2 weeks. Patient to follow up with Cardiac Surgeon, Dr. Hayder Graham, with a chest x-ray, EKG, and Echo. Inpatient Provider Contact Information: [facility] Section of Cardiac Surgery [facility] [place] [address] FAX [phone] Discharge Diagnoses (Hospital Problems) Primary Diagnoses: /CAD [...] Hypertension 08/14/2023 Nevus of face 09/26/2023 Right church Past Surgical History: Procedure Laterality Date PRO CABG, ARTERIAL, SINGLE N/A 02/17/2024 @CABG, USING ARTERIAL GRAFT;SINGLE ARTERIAL GRAFT (WRVU 33.75) performed by Hayder Graham MD at [facility] MAIN OR PRO CABG, ARTERY-VEIN, TWO N/A 02/17/2024 @CABG, TWO VENOUS GRAFTS & ARTERIAL GRAFT (WRVU 7.93) performed by Hayder Graham MD at [facility] MAIN OR PRO ENDOSCOPY W/VIDEO-ASST VEIN HARVEST, CABG Left 02/17/2024 ENDOSCOPIC HARVEST VEIN(S) FOR CABG (WRVU 0.31) performed by Hayder Graham MD at [facility] MAIN OR PRO REPLACEMENT PROSTHETIC AORTIC VALVE OPEN W CARDIOPULMONARY BYPASS HOMOGRF/STENT N/A 02/17/2024 @REPLACE AORTIC VALVE, OPEN, W\CPB, W\PROSTHETIC VALVE (WRVU 41.32) performed by Hayder Graham MD at [facility] MAIN OR Prior To Admission [...] insufficiency. He has glaucoma. He used to [employer] until about 15 years ago. He has undergone prior herniorrhaphy. 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 Major Procedures/Operations: 02/17/24 s/p avr/cabgx3 CABG x 3 JOSE->LAD SVG->dRCA SVG->OM1 EVH from LLE AVR with a 23 mm Inspiris Bioprosthesis Hospital Course: Karlos Garcia was admitted to [facility] on 02/17/2024 via the Same Day [...] Hayder Graham and/or the Cardiac Surgery Physician Cutting Table Operator Team may be reached at . [...] Please refer to the card with the [place] [employer] Guidelines for more information. You [...] Dr. Hayder Graham. You may use a [place] Track or treadmill but avoid any pulling [...] friends, go to a movie, go to faith, etc. Heavy activities: No hunting, skiing, jogging, [...] should resume a low fat, low cholesterol, [place] Diet. Driving: No driving until [...] while being managed by your PCP and/or Underwriting Intern. For future medication refills, please refer to your PCP and/or Underwriting Intern after your discharge from our service. Thank you REMOVE CHEST TUBE SUTURES ON OR AFTER 03/02/24 Home oxygen therapy: N/A Follow up appointments: You should follow up with your PCP, Aparna Jordan APRN, in 1-2 weeks. Our office will schedule an appointment with your Underwriting Intern, Neftali Ernandez MD , in 2 weeks. You have an appointment with your Cardiac Surgeon, Dr. Hayder Graham, 4 weeks with a chest x-ray, EKG, and Echo before your appointment. Cardiac Rehabilitation: Karlos Garcia was seen regarding participation in the outpatient Phase 2Cardiac Rehabilitation at [facility]. The patient agrees to a referral to this program. The referral will be sent at discharge and the patient should be contacted by the Program within 1- 2 weeks from discharge. Future Appointments and Orders Future Orders Complete By Expires Echocardiogram Transthoracic [03833 CPT(R)] 03/26/2024 09/25/2024 Process Instructions: Scheduling Instructions: Questions: Where will study be performed?: [facility] Clinics Does the patient have Congenital Heart Disease?: Does patient require sedation?: Sedation rationale: XR Chest PA & Lateral (Generic) [44092 04283 Custom] 03/26/2024 09/25/2024 Process Instructions: Scheduling Instructions: Questions: Portable exam?: Reason for exam and clinical history: s/p avr/cabg Clinical information / jerome questions for radiologist: Stat read required?: Date of injury if applicable: Requested Time: Where will study be performed?: [facility] Radiology Referral to Cardiac Rehab [QRR693 Custom] As directed Process Instructions: If no progress note charted, please enter Clinical details in comments. Scheduling Instructions: Questions: My question or request is: s/p AVR/CABG. Cardiac rehab at [facility]. Referral to Home Health [REF34 Custom] As directed Process Instructions: If no progress note charted, please enter Clinical details in comments. Scheduling Instructions: Comments: Please evaluate Karlos Garcia for admission to Home Health. [address] Phone Number: Date of : 1960 Inpatient DOCUMENTATION FOR VNA SERVICES (INCLUDING THOSE PATIENTS WITH MEDICARE COVERAGE REQUIRING HOME VNA SERVICES AND/OR HOSPICE SERVICES) PATIENT'S LOCATION: Karlos Garcia [address] [employer] [phone] Systems Design Engineer's Name: self/family In discussion with the attending physician, it is certified that this patient is under their care and that they, or a Nurse Practitioner, or Physician Cutting Table Operator who is working directly with them, [...] for services as follows: HOME HEALTH AGENCY: [facility] [address] [place] [address] RN orders: Cardiopulmonary assessment, incisional assessment, assess [...] issues please call the Cardiology Office at [phone] FOR MEDICARE ONLY: (please delete this section [...] APRN [address] / [place] [address] . All VNA agencies which cover the area of patient's residence have been reviewed, either verbally or in writing, and patient/family have chosen the home health care agency noted. Questions: Disciplines Requested: Nursing Physical Therapy Arrangements for VNA/home care: As above. Signed: NEFTALI MENON PA-C [facility] Section of Cardiac Surgery [facility] [place] [address] FAX [phone] Date: 02/24/2024 CC: Aparna Jordan, MAURI Jordan, Aparna Sherman APRN [address] [place] [address] documented in this encounter Discharge Instructions * [...] Hayder Graham and/or the Cardiac Surgery Physician Cutting Table Operator Team may be reached at . [...] Please refer to the card with the [place] [employer] Guidelines for more information. You [...] Dr. Hayder Graham. You may use a [place] Track or treadmill but avoid any pulling [...] friends, go to a movie, go to faith, etc. Heavy activities: No hunting, skiing, jogging, [...] should resume a low fat, low cholesterol, [place] [employer] Diet. Driving: No driving until [...] while being managed by your PCP and/or Underwriting Intern. For future medication refills, please refer to your PCP and/or Underwriting Intern after your discharge from our service. Thank you REMOVE CHEST TUBE SUTURES ON OR AFTER 03/02/24 Home oxygen therapy: N/A Follow up appointments: You should follow up with your PCP, Aparna Jordan APRN, in 1-2 weeks. Our office will schedule an appointment with your Underwriting Intern, Neftali Ernandez MD , in 2 weeks. You have an appointment with your Cardiac Surgeon, Dr. Hayder Graham, 4 weeks with a chest x-ray, EKG, and Echo before your appointment. Cardiac Rehabilitation: Karlos Garcia was seen regarding participation in the outpatient Phase 2Cardiac Rehabilitation at [facility]. The patient agrees to [...] 0600 and on the weekends please page [phone]. * Eric Barahona PA - 02/23/2024 9:27 [...] 0600 and on the weekends please page [phone]. * Tiffanie Owens - 02/22/2024 2:48 PM [...] d/c for 10 days. 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 * Kelley Hinson, NETWORK MGR - 02/21/2024 10:15 AM EDT Physical Therapy [...] d/c for 10 days. 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 * Kelley Hinson PTA - 02/20/2024 3:32 PM EDT 02/20/24 1515 Evaluation & Treatment Document Type contact Total Minutes, Physical Therapy 0 Comment, Session Not Performed Checked in w/ pt this PM for ongoing PT services, pt politely declined, stating he had been dealing w/ nausea all day, made plan to see him tomorrow morning, will f/u at that time Kelley Hinson PTA Pager: [phone] Physical Therapy Inpatient Rehab Department * Louisa [...] 0600 and on the weekends please page [phone]. * Maris Benavides, PT - 02/19/2024 11:22 [...] d/c for 10 days. Pt was indep NETWORK M[employer]. He drives. He works. Precautions/Special Considerations: STERNAL [...] outlined inthis evaluation. MARIS BENAVIDES, PT Pager: [phone] Physical Therapy Inpatient Rehabilitation Department Time IN / OUT: 1234-8873 Total Time: 38 (eval) minutes; * Antonio [...] 0600 and on the weekends please page [phone]. * Minnie Begum PA - 02/18/2024 8:25 [...] 0600 and on the weekends please page [phone]. * Kim Ha RCP - 02/17/2024 2:25 [...] plan since last visit. Hayder Graham MD [phone] Source Note - Hayder Graham MD - [...] insufficiency. He has glaucoma. He used to [employer] until about 15 years ago. He has [...] given written informed consent. Hayder Graham MD [phone] * Hayder Graham MD - 02/17/2024 7:00 [...] given written informed consent. Hayder Graham MD [phone] documented in this encounter Miscellaneous Notes * [...] for follow-up Home Health & Hospice, [address] [place] [address] Cardiac Rehab, [address] [place] [address] Transportation: family or friend will provide Functional status prior to admission: Independent Home Environment: Others in the home: alone. Current Living Arrangements: home/apartment/condo. Accessibility Concerns:a few steps to enter 1 floor home. Current Functional Ability: Assistive Person and Equipment DME used at home: none DME Needed at Discharge: N/A Patient is insured through: Primary Insurance: [facility] Payor: [facility] / Plan: [facility] PPO / Product Type: *No [...] pain managed with scheduled Tylenol. Worked with [employer]. Ambulated in the roque multiple times during [...] anticipated Patient is insured through: Primary Insurance: [employer] Payor: [employer] / Plan: [facility] PPO / Product Type: *No Product type* / Secondary Insurance: N/A Last Physical Therapy Recommendation: home with home health (Str coming to stay for a week or two upon d/c) with to be determined (owns rolling walker, shower seat) Plan for discharge is: Home w/ Services Outpatient Agency/Support Group Needs: Homecare agency Home Health Services: Physical Therapy, Registered Nurse Agency Referrals: [facility]. [address] [place] [id number] Transportation: family or friend will provide Barriers to discharge: Discharge planning Plan going forward: Service Care Management will continue to follow and assist with discharge planning and coordination of care as indicated. Anticipated Date of Discharge: 02/22/2024 Rhett Bell RN RN/CM - Cellphone: [phone] Pager: [phone] Covering Service RN/CM * Plan of Care [...] Yang RN - 02/19/2024 10:44 AM EDT [facility] CARDIAC REHABILITATION Karlos Garcia was seen today regarding participation in the outpatient Phase 2 Cardiac Rehabilitation at [facility]. The patient agrees to [...] Hypertension 08/14/2023 Nevus of face 09/26/2023 Right church Hospitalizations Within the Past 30 Days: no previous admission in last 30 days Current Decision-Making Capacity: Self If AD's have not been completed the following surrogate would be surrogate decision maker per [place] surrogate decision making law. (Only good for 180 days) Any patient receiving care in [place] must abide by [place] law. The hierarchy for surrogate decision making [...] (i) The agent with financial power of plumbers and top helpers or a conservator appointed in accordance with [...] steady place to sleep or slept in [facility] (including now)?: No In the past 12 months has the [employer], gas, oil, or water [email or web address] threatened to shut off services in your [...] [address] [facility] [address] Physical address: [address] [facility], [address] Social & Family Supports: All names listed [...] noted Health/Prescription Coverage: Primary Insurance: [facility] Payor: [facility] / Plan: [facility] PPO / Product Type: *No Product type* / Secondary Insurance: N/A ; Prescription Coverage: Yes Preferred Pharmacy: [id number] AT [address] [address] Status: Patient is a : No Primary Care Provider confirmed: Aparna Jordan, BON[employer] DIPPER [phone] Patient/Caregiver Goals of Treatment: dc to home Potential Needs for Transition of Care: home health care Agency Referrals: I have met with the patient to: discuss discharge planning needs. provide the [facility], Office of Care Management letter from the Clothing [employer] Textiles Teacher pertaining to rehab referrals. provide a letter describing our affiliations within the [facility] and educate about their right to choose where referrals are sent. provide a list of Home Health Agencies / Durable Medical Equipment vendors which serve their preferred geographic area. provided patient with [facility] Star Quality Rating handout. They have requested referrals to: [facility] [address] [place] [address] Note routed to a Assistant Director Of Residence Life who will communicate referrals to facilities and [...] Reina Greene RN CM, BSN, CMGT- Ext [phone] * Plan of Care - Binta Trinidad [...] Operative Note Patient Name: Karlos Garcia : [id number] MR#: [id number] Case Date: 02/17/2024 Surgeon: Surgeon(s) and Role: * Hayder Graham MD - Primary * Neftali Menon PA - Physician Cutting Table Operator Preoperative diagnosis: CAD Postoperative diagnosis: CAD, [...] Graham MD - 02/17/2024 8:20 AM EDT [facility] Operative Note Patient Name: Karlos Garcia : [id number] MR#: [id number] Case Date: 02/17/2024 Surgeon: Surgeons and Role: * Hayder Graham MD - Primary * Neftali Menon PA - Physician Cutting Table Operator Preoperative diagnosis: CAD Postoperative diagnosis: CAD, [...] PM EST Office Visit Cardiology at [address] [place] [address] Neftali Ernandez MD [facility] [address] Scheduled Orders Name Type Priority Associated Diagnoses [...] Aortic Valve Open W Cardiopulmonary Bypass Homogrf/Stent (45047) Yes 02/17/2024 7:28 AM EDT CAD Cabg, Artery-Vein, Two (90954) Yes 02/17/2024 7:28 AM EDT CAD Cabg, Arterial, Single (82343) Yes 02/17/2024 7:28 AM EDT CAD Endoscopy W/Video-Asst Vein [place], Cabg (55232) Yes 02/17/2024 7:28 AM EDT CAD POCT [...] Hayder Graham MD CHEMISTRY ORDERABLE S [facility] [place] [address] * (ABNORMAL) Basic Metabolic Panel (non-fasting) (02/23/2024 [...] CHEMISTRY ORDERABLES [facility] [place] [address] * Potassium (02/22/2024 4:30 AM EDT) Potassium [...] Hayder Graham MD CHEMISTRY ORDERABLE S [facility] [place] [address] * (ABNORMAL) Basic Metabolic Panel (non-fasting) (02/21/2024 [...] [facility] Comment:Add-on request. Samp le too [...] Carpio MD CHEMISTRY ORDERABLES Performing Organization Address City/[facility]/ZIP Co de Phone Number [facility] [place] [address] * Lactate, whole blood, send to lab ([facility]) (02/21/2024 9:45 AM EDT) [facility] Lactate WB 2.0 0.5 - 2.2 mmol/L [facility] Blood 02/21/2024 9:45 AM EDT 02/21/2024 9:52 AM EDT Narrative Resulting Agency Comment Spec In Lab Hayder Graham MD CHEMISTRY ORDERABLE S Performing Organization Address City/[facility]/ZIP Co de Phone Number [facility] [place] [address] * (ABNORMAL) Hepatic Function Panel (02/21/2024 9:45 AM EDT) [facility] Protein, Total 5.7(L) 6.1 - [...] MD CHEMISTRY ORDERABLE S Performing Organization Address City/[facility]/ZIP Co de Phone Number [facility] [place] [address] * Lipase (02/21/2024 9:45 AM EDT) Lipase 56 0 - 60 unit/L [facility] Blood 02/21/2024 9:45 AM EDT 02/21/2024 9:52 AM EDT Narrative Resulting Agency Comment Spec In Lab Hayder Graham MD CHEMISTRY ORDERABLE S Performing Organization Address [facility] Co de Phone Number [facility] [place] [address] * Amylase (02/21/2024 9:45 AM EDT) Amylase 69 28 - 100 unit/L [facility] Blood 02/21/2024 9:45 AM EDT 02/21/2024 9:52 AM EDT Narrative Resulting Agency Comment Spec In Lab Hayder Graham MD CHEMISTRY ORDERABLE S Performing Organization Address [facility] Co de Phone Number [facility] [place] [address] * Potassium (02/21/2024 3:08 AM EDT) Potassium [...] Hayder Graham MD CHEMISTRY ORDERABLE S [facility] [place] [address] * XR Chest PA & Lateral (Generic) (02/20/2024 10:19 AM EDT) WORKSTATION ID [id number] RAD Anatomical Region Laterality Modality Chest N/A Digital Radiogra phy Impressions 02/20/2024 1:11 PM EDT Small pleural effusions. No pneumothorax Thank you for letting us participate in the care of this patient. ??If you are a health care provider and have any questions regarding this report, please contact the number below. ??For patients who have questions please contact the health career services representative that requested your imaging first. ? Electronically signed by: Rogerio Cruz MD, [facility] ??([phone]), at 02/20/2024 1:11 PM Narrative 02/20/2024 1:11 PM EDT EXAMINATION: XR CHEST PA AND LATERAL (GENERIC) CLINICAL HISTORY: s/p AVR/CABGx3 TECHNIQUE: PA and lateral views of the chest COMPARISON: 02/17/2024 FINDINGS: Support devices: Interval removal of [place]-Kaila catheter, endotracheal tube and mediastinal chest tubes The cardiac silhouette is stable status post median sternotomy, CABG and aortic valve replacement. There are small pleural effusions. No pneumothorax. Procedure Note Rogerio Cruz MD - 02/20/2024 EXAMINATION: XR CHEST PA AND LATERAL (GENERIC) CLINICAL HISTORY: s/p AVR/CABGx3 TECHNIQUE: PA and lateral views of the chest COMPARISON: 02/17/2024 FINDINGS: Support devices: Interval removal of [place]-Kaila catheter, endotracheal tubeand mediastinal chest tubes The [...] who have questions please contactthe health career services representative that requested your imaging first. Hayder Graham MD IMG DX ORDERABLES * Scan, Peripheral Blood (02/20/2024 4:23 AM EDT) Pathologist [facility] Plat estimate Decreased [facility] RBC Morphology Normal [facility] Blood 02/20/2024 4:23 AM EDT 02/20/2024 4:42 AM EDT Narrative Resulting Agency Comment Spec In Lab Minnie FRENCH HEMATOLOGY CECILIO ALEMAN Performing Organization Address City/State/[facility] Co de Phone Number [facility] [place] [address] * (ABNORMAL) Differential, Automated (02/20/2024 4:23 AM EDT) [facility] Neutrophil % 81.7 % [facility] Neutrophil Absolute 10.37(H) 1.70 - 6.10 x10(3)/mc L [facility] Lymph % 7.4 % [facility] Lymphocytes Abs 0.9 0.9 - 3.2 x10(3)/mc L [facility] Monocyte % 9.7 % [facility] Monocyte Abs 1.2(H) 0.3 - 0.9 x10(3)/mc L [facility] Eos % 0.1 % [facility] Eosinophils Abs 0.0 0.0 - 0.4 x10(3)/[facility] Basophil % 0.2 % [facility] Baso Absolute 0.0 0.0 - 0.1 x10(3)/[facility] Immature Gran % 0.90 % [facility] [...] CECILIO ALEMAN [facility] [place] [address] * (ABNORMAL) Hemogram (02/20/2024 4:23 AM EDT) [...] 88(L) 145 - 357 x10(3)/mc L [facility] RDW Standard Deviation 43.5 36.0 - 45.0 fL [facility] RDW coefficient of variation 13.7 11.4 - 13.8 % [facility] Mean Platelet Volume 10.2 7.6 - 12.9 fL [facility] NRBC% auto 0.0 % [facility] NRBC Absolute 0.000 0.000 - 0.000 x10(3)/mc L [facility] Blood 02/20/2024 4:23 AM EDT 02/20/2024 4:42 AM EDT Narrative Resulting Agency Comment Spec In Lab Minnie [facility] CECILIO ALEMAN [facility] [place] [address] * (ABNORMAL) Basic Metabolic Panel (non-fasting) (02/20/2024 [...] ORDERABLE S Performing Organization Address [facility] Co de Phone Number [facility] [place] [address] * Potassium (02/19/2024 3:57 AM EDT) [facility] Potassium 4.3 3.5 - 5.0 mmol/L [facility] [...] ORDERABLE S Performing Organization Address [facility]/ZIP Co de Phone Number [facility] [place] [address] * POCT Glucose (02/18/2024 8:24 AM EDT) Glucose, POC 157 65 - 199 mg/dL [facility] Comment: Supplemental ranges: <140 mg/dL before meals <180 mg/dL all other times of the day Blood 02/18/2024 8:24 AM EDT 02/18/2024 8:24 AM EDT Hayder Graham MD POINT OF CARE TEST ORDERABLES Performing Organization Address City/[facility]/ZIP Co de Phone Number [facility] [place] [address] * Scan, Peripheral Blood (02/18/2024 1:40 AM EDT) [facility] Plat estimate Decreased [facility] RBC Morphology Normal [facility] Blood 02/18/2024 1:40 AM EDT 02/18/2024 1:56 AM EDT Narrative Resulting Agency Comment Spec In Lab Neftali FRENCH HEMATOLOGY ORDER OLE Performing Organization Address City/[facility]/ZIP Co de Phone Number [facility] [place] [address] * (ABNORMAL) Differential, Automated (02/18/2024 1:40 AM EDT) [facility] Neutrophil % 87.1 % [facility] Neutrophil Absolute 15.03(H) 1.70 - 6.10 x10(3)/mc L [facility] Lymph % 3.0 % [facility] Lymphocytes Abs 0.5(L) 0.9 - 3.2 x10(3)/mc L [facility] Monocyte % 9.1 % [facility] Monocyte Abs 1.6(H) 0.3 - 0.9 x10(3)/mc L [facility] Eos % 0.0 % [facility] Eosinophils Abs 0.0 0.0 - 0.4 x10(3)/mc L [facility] Basophil % 0.2 % [facility] Baso Absolute 0.0 0.0 - [...] 0.10(H) 0.00 - 0.04 x10(3)/ L [facility] Blood 02/18/2024 1:40 AM EDT 02/18/2024 1:56 AM EDT Narrative Resulting Agency Comment Spec In Lab Neftali FRENCH HEMATOLOGY ORDER OLE [facility] [place] [address] * (ABNORMAL) Hemogram (02/18/2024 1:40 AM EDT) White Blood Cell 17.2(H) 4.0 - 9.5 x10(3)/ L [facility] [...] Deviation 39.9 36.0 - 45.0 fL [facility] RDW coefficient of variation 13.2 11.4 - 13.8 % [facility] Mean Platelet Volume 9.9 7.6 - 12.9 fL [facility] NRBC% auto 0.0 % [facility] NRBC Absolute 0.000 0.000 - 0.000 x10(3)/mc L [facility] Blood 02/18/2024 1:40 AM EDT 02/18/2024 1:56 AM EDT Narrative Resulting Agency Comment Spec In Lab Neftali FRENCH HEMATOLOGY ORDER OLE [facility] [place] [address] * (ABNORMAL) Basic Metabolic Panel (non-fasting) (02/18/2024 [...] Hayder Graham MD CHEMISTRY ORDERABLE S [facility] [place] [address] * (ABNORMAL) Troponin (02/18/2024 1:40 AM EDT) [...] [facility] Test Catalog Reference: Fourth [place] Definition of Myocardial Infarction. Journal of the [place] [employer] 2018;72:7916-1257 Blood 02/18/2024 1:40 AM EDT 02/18/2024 1:56 AM EDT Narrative Resulting Agency Comment Spec In Lab Hayder Graham MD CHEMISTRY ORDERABLE S [facility] [place] [address] * POCT Glucose (02/17/2024 8:13 PM EDT) Glucose, POC 142 65 - 199 mg/dL [facility] Comment: Supplemental ranges: <140 mg/dL before meals <180 mg/dL all other times of the day Blood 02/17/2024 8:13 PM EDT 02/17/2024 8:13 PM EDT Hayder Graham MD POINT OF CARE TEST ORDERABLES Performing Organization Address [facility]/ZIP Co de Phone Number [facility] [place] [address] * POCT Glucose (02/17/2024 5:42 PM EDT) Glucose, POC 160 65 - 199 mg/dL [facility] Comment: Supplemental ranges: <140 mg/dL before meals <180 mg/dL all other times of the day Blood 02/17/2024 5:42 PM EDT 02/17/2024 5:42 PM EDT Hayder Graham MD POINT OF CARE TEST ORDERABLES Performing Organization Address City/[facility]/ZIP Co de Phone Number [facility] [place] [address] * Hemoglobin (02/17/2024 5:42 PM EDT) Hemoglobin 13.7 13.7 - 16.5 g/dL [facility] Blood 02/17/2024 5:42 PM EDT 02/17/2024 6:10 PM EDT Narrative Resulting Agency Comment Spec In Lab Hayder Graham MD HEMATOLOGY ORDERABL ES Performing Organization Address [facility] Co de Phone Number [facility] [place] [address] * Potassium (02/17/2024 5:42 PM EDT) Potassium [...] ORDERABLE S Performing Organization Address [facility] de Phone Number [facility] [place] [address] * (ABNORMAL) BLOOD GAS 2 ARTERIAL (02/17/2024 [...] [facility] FIO2 Art 40 % [facility] PF Ratio Art 195 [facility] Blood 02/17/2024 4:18 PM EDT 02/17/2024 4:18 PM EDT Hayder Graham MD POINT OF CARE TEST ORDERABLES Performing Organization Address City/State/[facility] Co de Phone Number [facility] [place] [address] * XR Chest One View (02/17/2024 1:44 PM EDT) WORKSTATION ID [id number] RAD Anatomical Region Laterality Modality Chest N/A Digital Radiogra phy Impressions 02/17/2024 2:12 PM EDT 1. ??No definite pleural fluid collection or pneumothorax. 2. ??Right IJ Woodlawn-Kaila catheter tip terminates in a descending branch [...] have questions please contact the health career services representative that requested your imaging first. ? Electronically signed by: Denzel Hankins MD, [facility] ??([phone]), at 02/17/2024 2:12 PM Narrative 02/17/2024 2:12 PM EDT EXAMINATION: XR CHEST ONE VIEW CLINICAL HISTORY: s/p avr/cabg eval effusions TECHNIQUE: 1 view of the chest COMPARISON: Chest x-ray 01/09/2024, chest CT 02/03/2024 FINDINGS: ET tube tip terminates 5.2 cm above the carlos. Right IJ Woodlawn-Kaila catheter tip terminates in a descending branch [...] 5.2 cm above the carlos. Right IJ Woodlawn-Ganzcatheter tip terminates in a descending branch of [...] fluid collection or pneumothorax. 2. Right IJ Woodlawn-Kaila catheter tip terminates in a descending branch ofthe right pulmonary artery. Suggest catheter retraction. 3. Additional support lines and tubes as above. Thank you for letting us participate in the care of this patient. If youare a health care provider and have any questions regarding this report,please contact the number below. For patients who have questions please contactthe health career services representative that requested your imaging first. Electronically signed by: Denzel Hankins MD, [facility]([phone]), at 02/17/2024 2:12 PM Hayder Graham MD [...] [facility] FIO2 Art 100 % [facility] PF Ratio Art 320 [facility] Blood 02/17/2024 1:31 PM EDT 02/17/2024 1:31 PM EDT Hayder Graham MD POINT OF CARE TEST ORDERABLES Performing Organization Address City/State/[facility] Co de Phone Number [facility] [place] [address] * (ABNORMAL) Coox2 (02/17/2024 1:21 PM EDT) [...] TEST ORDERABLES [facility] [place] [address] * (ABNORMAL) BLOOD GAS 2 ARTERIAL (02/17/2024 [...] OF CARE TEST ORDERABLES Performing Organization Address [facility] de Phone Number [facility] [place] [address] * (ABNORMAL) Fibrinogen (02/17/2024 12:10 PM EDT) [...] ORDERABLE S Performing Organization Address [facility] Co de Phone Number [facility] [place] [address] * (ABNORMAL) Thrombin time (02/17/2024 12:10 PM [...] ORDERABLE S Performing Organization Address [facility] de Phone Number [facility] [place] [address] * APTT (02/17/2024 12:10 PM EDT) Partial [...] ORDERABLE S Performing Organization Address [facility] de Phone Number [facility] [place] [address] * (ABNORMAL) Prothrombin Time (02/17/2024 12:10 PM [...] ORDERABLE S [facility] [place] [address] * (ABNORMAL) Hemogram (02/17/2024 12:10 PM EDT) [...] [facility] NRBC% auto 0.0 % [facility] NRBC Absolute 0.000 0.000 - 0.000 x10(3)/mc L [facility] Blood 02/17/2024 12:1 0 PM EDT 02/17/2024 12:19 PM EDT Narrative Resulting Agency Comment Spec In Lab Tara York MD HEMATOLOGY ORDERABLE S [facility] [address] [place] [address] * (ABNORMAL) BLOOD GAS 2 ARTERIAL (02/17/2024 [...] [facility] Comment: Noted by instrument lens [...] TEST ORDERABLES [facility] [place] [address] * (ABNORMAL) BLOOD GAS 2 ARTERIAL (02/17/2024 [...] [facility] Comment: Noted by instrument lens [...] OF CARE TEST ORDERABLES Performing Organization Address City/[facility]/[place] [address] * (ABNORMAL) Hemoglobin and Hematocrit, blood (02/17/2024 [...] Hayder Graham MD HEMATOLOGY ORDERABL ES [facility] [place] [address] * (ABNORMAL) Platelet count (02/17/2024 11:04 AM EDT) Platelet 106(L) 145 - 357 x10(3)/mc L [facility] Immature Plt % 1.6 0.0 - 7.4 % [facility] Comment: Limitation of the Immature Platelet Fraction (IPF)-May be less reliable when the platelet count is less than 81h462/uL due to statistical imprecision. The IPF value [...] in a decreased state of production. References: [employer] The Clinical Value of the Immature Platelet Fraction (IPF) in Cell Recovery Document Number [id number] 03/2011 [employer] The Role of the Immature Platelet Fraction (IPF) in the Differential Diagnosis of Thrombocytopenia, Document [id number] V002/15/14 P014 Blood 02/17/2024 11:0 4 AM EDT 02/17/2024 11:12 AM EDT Narrative Resulting Agency Comment Spec In Lab Hayder Graham MD HEMATOLOGY ORDERABL ES [facility] [place] [address] * (ABNORMAL) Fibrinogen (02/17/2024 11:04 AM EDT) Pathologist [facility] Fibrinogen 149(L) 200 - 393 mg/dL [facility] [...] Hayder Graham MD HEMATOLOGY ORDERABL ES [facility] [place] [address] * (ABNORMAL) BLOOD GAS 2 ARTERIAL (02/17/2024 [...] OF CARE TEST ORDERABLES Performing Organization Address City/State/[facility] Co de Phone Number [facility] [place] [address] * (ABNORMAL) BLOOD GAS 2 ARTERIAL (02/17/2024 [...] OF CARE TEST ORDERABLES Performing Organization Address City/State/[facility] Co de Phone Number [facility] [place] [address] * Surgical Pathology Report (02/17/2024 10:01 AM EDT) Final Diagnosis [id number] ? Location: [facility]; [facility]; The signing pathologist has (i) examined the relevant preparation(s) for the specimen(s) and (ii) rendered or confirmed the diagnosis(es). . ?Surgical Pathology DIAGNOSIS Aortic valve leaflets, excision: Valve leaflets with myxoid degeneration, nodular fibrosis and dystrophic calcifications. Electronically signed by: ?Livier Montoya MD Verified: ??02/24/2024 13:49 ??Pathologist Performed at: ??-[facility] Dept. of Pathology, [place] [address] [employer] Teacher: Job Brewer MD, FCAP, ??CLIA Certificate: [id number] SPECIMEN(S) SUBMITTED A - Aortic Valve Leaflets, [...] Sections Processing Blocks submitted for decalcification: A1. Party Plan Sales Consultant sections in 1 cassette labeled A1. ??ajw 02/24/2024 1:49 PM EDT [facility] AORTIC STRUCTURE / Unknown 02/17/2024 10:01 AM EDT 02/17/2024 10:01 AM EDT Hayder Graham MD PATHOLOGY/CYTOLOGY ORDERABLES Performing Organization Address City/[facility]/ZIP Co de Phone Number [facility] [place] [address] * Specimen to Pathology (02/17/2024 10:01 AM EDT) AP Specimen 02/17/2024 10:0 1 AM EDT 02/17/2024 10:01 AM EDT Narrative [facility] - 02/17/2024 10:01 AM EDT Specimen requisition ordered. ??Separate Pathology report to follow Hayder Graham MD PATHOLOGY/CYTOLOGY ORDERABLES Performing Organization Address [facility]/ZIP Co de Phone Number [facility] [place] [address] * (ABNORMAL) BLOOD GAS 2 ARTERIAL (02/17/2024 9:35 AM EDT) pH, Arterial 7.33(L) 7.35 - 7.45 [facility] PCO2, Arterial 35 35 - 45 mmHg [facility] PO2, Arterial 318(H) 85 - 104 mmHg [facility] Bicarbonate, Arterial 17.9(L) 20.0 - 26.0 mmol/L [facility] Base Excess, Arterial -8.0(L) -3.0 [...] TEST ORDERABLES [facility] [place] [address] * (ABNORMAL) BLOOD GAS 2 VENOUS (02/17/2024 9:34 AM EDT) pH, Venous 7.22(Criti marquez) 7.32 - 7.42 [facility] Comment:Noted by instrument lens inspector. PCO2, Venous 43 41 - 51 mmHg [facility] Comment:Noted by instrument lens inspector. PO2, Venous 57(H) 25 - 40 mmHg [facility] Comment:Noted by instrument lens inspector. Bicarbonate, Venous 17.1 mmol/L [facility] Comment:Noted by instrument lens inspector. Base Excess, Venous -10.6 mmol/L [facility] Comment:Noted by instrument lens inspector. Hgb Blood Gas 11.2(L) 13.7 - 16.5 g/dL [facility] Comment:Noted by instrument lens inspector. Oxyhemoglobin, Venous 86.5 % [facility] Comment:Noted by instrument lens inspector. Carboxyhemoglob in, Venous 0.3 % [facility] Comment: Noted by instrument lens inspector. Nonsmokers: 0.5-1.5% COHB Smokers: Variable, but usually less than 10% Toxic: 20-30% COHB Lethal: Greater than 60% COHB Methemoglobin, Venous 0.0 <=1.5 % [facility] Comment:Noted by instrument lens inspector. Na Whole Blood 156(H) 135 - 145 mmol/L [facility] Comment:Noted by instrument lens inspector. K Whole Blood 5.5(H) 3.5 - 5.0 mmol/L [facility] Comment: Noted by instrument lens inspector. Please note: Patients with WBC >100,000 may have falsely elevated Potassium levels. Contact the Clinical Chemistry Laboratory if there are any questions. ICa Whole Blood 1.03(L) 1.15 - 1.33 mmol/L [facility] Comment: Noted by instrument lens inspector. Note: ??Total bilirubin higher than 20 mg/dL may lead to falsely low ionized calcium. CL Whole Blood 100 98 - 107 mmol/L [facility] Comment:Noted by instrument lens inspector. Gluc Whole Bld 132 65 - 199 mg/dL [facility] Comment: Noted by instrument lens inspector. Diabetes: >=200 mg/dL plus symptoms Lactate WB 1.0 0.5 - 2.2 mmol/L [facility] Comment:Noted by instrument lens inspector. Blood Gas Source Venous [facility] Blood 02/17/2024 9:34 AM EDT 02/17/2024 9:34 AM EDT Hayder Graham MD POINT OF CARE TEST ORDERABLES [facility] [place] [address] * (ABNORMAL) BLOOD GAS 2 ARTERIAL (02/17/2024 [...] TEST ORDERABLES Performing Organization Address [facility] Co de Phone Number [facility] [place] [address] * POCT Glucose (02/17/2024 6:38 AM EDT) Glucose, POC 98 65 - 199 mg/dL [facility] Comment: Supplemental ranges: <140 mg/dL before meals <180 mg/dL all other times of the day Blood 02/17/2024 6:38 AM EDT 02/17/2024 6:38 AM EDT Hayder Graham MD POINT OF CARE TEST ORDERABLES Performing Organization Address [facility] Co de Phone Number [facility] [place] [address] * Transesophageal Echo/OR (02/17/2024 6:33 AM EDT) [...] [facility]es[facility]-operative [facility] [...] 6 hours upon arrival to Unit. Give NM if unable to take PO, Routine Given [...] dose on Sat02/17/24 at 1400, Until Discontinued, [place] teeth and / or gums. Scan the CHG vial in the [employer] Q-Care Oral Care Kit from floor stock. Ventilator-associated pneumonia prophylaxis For use in ICU/Critical care locations ONLY. Obtain kit from Floor Stock location. Scan CHG vial in the [employer] Q-Care Oral Care Kit, Routine Given 02/17/2024 [...] restart at 50% of previous rate. Call household appliances service technician if goal not achieved at maximum rate. [...] PHENYLephrine and/or vasopressin ineffective. Call pager # [phone] if initiated. Titrate to keep systolic blood [...] 2.0 L/min/M2. Maximum volume 2 L. Call household appliances service technician for additional fluid orders: pager #[phone]. Rate/Dose Verify 02/18/2024 8:00 AM EDT 1 [...] Routine documented in this encounter Care Teams Wet And Dry Sugar Bin Operator Relationship Specialty Start Date End Date Aparna Jordan APRN PCP - General Family Medicine 10/21/23 05/26/24 documented as of this encounter
--- OUTSIDE RECORDS SUMMARY | 2024-06-22 08:18 | XMS_ITS | Encounter Summary ---
Author Organization [facility] Address [facility] [place] [address] Care Team Providers Care Professor Of Surgery Name Role Phone Gino Vanessa Lane DOTSON Primary Care Provider [phone] Encounter Details Date Type Department Care Team (Late st Contact Info) Description 02/24/2024 Orders Only Cardiac Surgery [facility] [place] [phone] Trudi Lester APRN [facility] [place] [address] Social History Tobacco Use Types Packs/Day Years Used Date Smoking Tobacco: Former Cigarettes Smokeless Tobacco: Never Comments:Quit 15 + years ago Alcohol Use Standard Drinks/Week Comments Yes 0 (1 standard drink = 0.6 oz pur e alcohol) rare [facility] Utilities Answer Date Recorded In the past 12 months has e [employer], gas, oil, or water [place] threatened to shut off services in your [...] PM EST Office Visit Cardiology at [address] [place] [address] Neftali Ernandez MD [facility] [place] [address] documented as of this encounter Visit Diagnoses Not on filedocumented in this encounter Care Teams Professor Of Surgery Relationship Specialty Start Date End Date Vanessa Christian APRN PCP - General Family Medicine 10/21/23 05/26/24 documented as of this encounter
--- OUTSIDE RECORDS SUMMARY | 2024-06-22 08:18 | XMS_ITS | Encounter Summary ---
Author Organization [facility] Address [facility] [place] [address] Care Team Providers Care Animal Care Assistant Name Role Phone Vanessa Christian MAURI Primary Care Provider [phone] Encounter Details Date Type Department Care Team [...] 3:00 PM EST Office Visit Cardiology at [address] [phone] Neftali Ernandez MD [facility] [place] [address] documented as of this encounter Visit Diagnoses Not on filedocumented in this encounter Care Teams Animal Care Assistant Relationship Specialty Start Date End Date Vanessa Christian APRN PCP - General Family Medicine 10/21/23 05/26/24 documented as of this encounter
--- OUTSIDE RECORDS SUMMARY | 2024-06-22 08:18 | XMS_ITS | Clinical Summary ---
Author Organization [facility] Address [facility] [place] [address] Care Team Providers Care Class C Driver Name Role Phone Vanessa Christian Lane DOTSON Primary Care Provider [phone] Allergies No known active allergies Medications Medication [...] the meantime will refer to SHT at [facility] for further evaluation. Logistics and preliminary review of TONY were reviewed with patient. - Refer to SHT Hypertension 08/14/2023 Resolved Problems Problem Noted Date Diagnosed Date Resolved Date Nevus of face 09/26/2023 05/27/2024 Overview (09/26/2023): Right mormonism Chest pressure 08/14/2023 10/21/2023 SILVA (dyspnea on exertion) 08/14/2023 HLD (hyperlipidemia) 08/14/2023 024 Encounters Date Type Department Care Team Description 05/27/2024 11:00 AM EDT Office Visit Cardiology at [address] [place] [address] Neftali Ernandez MD ASCVD (arteriosclerotic [...] PM EST Office Visit Cardiology at [address] [place] [address] Neftali Ernandez MD [facility] [place] [address] Health Maintenance Due Date Last [...] series) 06/07/2024 Medical Devices Implanted Type Area Management Accounts Manager Device Identifier Shelf Expiration Date Model / Serial / Lot Cable,Cut,Edg ,Blnt,Ss,3tpr ([id number]) - [id number] Implanted:Qty : 1 on 02/17/2024 by Zak Farmer MD at [facility] IMPLANTS Midline: Chest [employer] - [id number] 09/02/2028 [id number] / / [id number] Valve Coronary Aortic 23mm Tissue Trnscath Biopros Inspiris ([id number]) (Autoreq) - [id number] Implanted:Qty : 1 on 02/17/2024 by Zak Farmer MD at [facility] IMPLANTS Heart [employer] - TSAI LI 09/15/2027 [id number] / [id number] / Procedures Procedure Name Priority Date/Time Associated [...] (Bezet) 367 ms MUSE SYSTEM Calculated P [place] 12 degrees MUSE SYSTEM Calculated R [place] 27 degrees MUSE SYSTEM Calculated T [place] 62 degrees MUSE SYSTEM INTERPRETATION Sinus bradycardia with 1st degree A-V block Otherwise normal ECG When compared with ECG of 12-MAR-2024 14:35, T wave inversion no longer evident in Anterior leads Confirmed by MD Ernandez Daniel ([id number]) on 06/01/2024 8:36:17 AM MUSE SYSTEM 05/27/2024 [...] Status decision made by: Patient Care Teams Class C Driver Relationship Specialty Start Date End Date Vanessa Christian, LIBRARY CLERK [employer] [address] [place] [address] PCP - General Family Medicine 05/27/24
--- OUTSIDE RECORDS SUMMARY | 2024-06-22 08:18 | XMS_ITS | Encounter Summary ---
Author Organization [facility] Address [facility] [place] [address] Care Team Providers Care Wood Tool Maker Name Role Phone Vanessa Christian MAURI Primary Care Provider [phone] Encounter Details Date Type Department Care Team (Latest Contact Info) Description 05/27/2024 Travel Social History Tobacco Use Types Packs/Day Years Used Date Smoking Tobacco: Former Cigarettes Smokeless Tobacco: Never Comments:Quit 15 + years ago Alcohol Use Standard Drinks/Week Comments Yes 0 (1 standard drink = 0.6 oz pur e alcohol) rare [facility] Utilities Answer Date Recorded In [...] PM EST Office Visit Cardiology at [address] [address] Neftali Ernandez MD [facility] [place] [address] documented as of this encounter Visit Diagnoses Not on filedocumented in this encounter Care Teams Wood Tool Maker Relationship Specialty Start Date End Date Vanessa Christian APRN [address] [place] [address] PCP - General Family Medicine 05/27/24 documented as of this encounter
--- OUTSIDE RECORDS SUMMARY | 2024-06-22 08:18 | XMS_ITS | Encounter Summary ---
Author Organization [facility] Address [address] [place] [address] Care Team Providers Care Counter Clerk [employer]ractor Parts Name Role Phone Vanessa Christian Lane MONCADA Primary Care Provider [phone] Encounter Details Date Type Department Care Team (Late st Contact Info) Description 10/24/2023 Lab Requisition [facility] Pathology & Laboratory Medicine - [address] [address] Oscar Nichole MD [address] [place] [address] [id number] Factitial dermatitis Social History Tobacco Use Types [...] management options, if applicable. 10/28/2023 11:24 EST [facility] Final Diagnosis A. SKIN OF FAITH, LEFT, SHAVE BIOPSY: - Seborrheic keratosis, pigmented. 10/28/2023 11:24 EST [facility] Attestation By the signature below, the attending physician certifies that they have 1) personally conducted a gross and/or microscopic examination of the described specimen(s), and/or personally interpreted the results of laboratory testing of the described specimen(s), and 2) personally rendered or confirmed the above diagnosis. 10/28/2023 11:24 [facility] at [address] Microscopic Description The stratum corneum is thickened by compact and basketweave orthokeratosis with formation of horn pseudocysts. The epidermis is acanthotic with formation of broad and anastomosing trabeculae. The trabeculae are composed of basaloid keratinocytes with round uniform nuclei. The keratinocytes have a variable amount of melanin pigment. 10/28/2023 11:24 [facility] Clinical History Pigmented 2 cm patch; clinical diagnosis code: L98.1 10/28/2023 11:24 [facility] Gross Description A. [...] A3. Nora Anderson 10/25/2023 8:47 10/28/2023 11:24 [facility] Performing Lab [facility] 10/28/2023 11:24 [facility] Scanned Images 10/28/2023 11:24 [facility] Tissue SPECIMEN FROM SKIN / Unknown 10/24/2023 14:30 EST 10/24/2023 22:04 EST Oscar Nichole MD PATHOLOGY ORDERABLES [facility] [address] [place] [address] documented in this encounter Visit Diagnoses Diagnosis Factitial dermatitis Dermatitis factitia (artefacta) documented in this encounter Care Teams Counter Clerk [employer]ractor [employer] Relationship Specialty Start Date End Date Vanessa Christian NP [address] [place] [address] PCP - General Family Medicine - Primary Care 10/07/23 documented as of this encounter
--- OUTSIDE RECORDS SUMMARY | 2024-06-22 08:18 | XMS_ITS | Referral Summary ---
Author Organization [facility] Address [address] [place] [address] Care Team Providers Care Risk Investigator Name Role Phone Filidayna Vanessa Sherman NP Primary Care Provider [phone] Social History Tobacco Use Types Packs/Day Years Used Date Smoking Tobacco: Never Assessed Sex and Gender Information Value Date Recorded Sex Assigned at Not on file Gender Identity Not on file Sexual Orientation Not on file Plan of Treatment Not on file Care Teams Risk Investigator Relationship Specialty Start Date End Date Vanessa Christian NP [address] [place] [address] PCP - General Family Medicine - Primary Care 10/07/23
--- OUTSIDE RECORDS SUMMARY | 2024-06-22 08:18 | XMS_ITS | Encounter Summary ---
Author Organization [facility] Address [facility] [place] [address] Care Team Providers Care Wood Heel Back Liner Name Role Phone Vanessa Christian SALES REP Primary Care Provider [phone] Encounter Details Date Type Department Care Team (Late st Contact Info) Description 03/12/2024 2:40 PM EDT Office [place] [phone] Zak Farmer MD [facility] [place] [address] Coronary artery disease, unspecified vessel or lesion type, unspecified whether angina present, unspecified whether telida or transplanted heart Social History Tobacco Use Types Packs/Day Years Used Date Smoking Tobacco: Former Cigarettes Smokeless Tobacco: Never Comments:Quit 15 + years ago Alcohol Use Standard Drinks/Week Comments Yes 0 (1 standard drink = 0.6 oz pur e alcohol) rare [facility] Utilities Answer Date Recorded In the past 12 months has e [employer], gas, oil, or water [employer] threatened to shut off services in your [...] 2:40 PM EDT To: MD Vanessa Coles, SALES REP Re; Karlos Santa ( 1960) We had [...] office. Best personal regards, Zak Farmer MD [phone] documented in this encounter Plan of Treatment Upcoming Encounters Date Type Department Care Team (Late st Contact Info) Description 11/30/2024 3:00 PM EST Office Visit Cardiology at [address] [place] [address] Neftali Ernandez MD [facility] [place] [address] documented as of this encounter Procedures Procedure [...] (Bezet) 401 ms MUSE SYSTEM Calculated P [place] -12 degrees MUSE SYSTEM Calculated R [place] 24 degrees MUSE SYSTEM Calculated T [place] 74 degrees MUSE SYSTEM INTERPRETATION Sinus bradycardia T wave abnormality, consider anterior ischemia Abnormal ECG When compared with ECG of 17-FEB-2024 13:24, [place] interval has decreased T wave inversion now evident in Anterior leads Confirmed by Paul Guzman ([id number]) on 03/15/2024 8:36:23 AM MUSE SYSTEM 03/12/2024 2:35 PM EDT 03/15/2024 8:36 AM EDT Zak Farmer MD ECG ORDERABLES MUSE SYSTEM documented in this encounter Visit Diagnoses Diagnosis Coronary artery disease, unspecified vessel or lesion type, unspecified whether angina present, unspecified whether telida or transplanted heart documented in this encounter Care Teams Wood Heel Back Liner Relationship Specialty Start Date End Date Vanessa Christian APRN PCP - General Family Medicine 10/21/23 05/26/24 documented as of this encounter
--- OUTSIDE RECORDS SUMMARY | 2024-06-22 08:18 | XMS_ITS | Encounter Summary ---
Author Organization Formerly [facility] Address [facility] [place] [address] Care Team Providers Care Psychiatrist Name Role Phone Vanessa Christian Lane DOTSON Primary Care Provider [phone] Reason for Visit * Reason Comments Coronary Artery Disease Aortic Stenosis Encounter Details Date Type Department Care Team (Latest Contact Info) Description 05/27/2024 11:00 AM EDT Office Visit Cardiology at [address] [place] [phone] Neftali Ernandez MD [facility] [place] [address] ASCVD (arteriosclerotic cardiovascular disease); Nonrheumatic aortic valve stenosis Social History Tobacco Use Types Packs/Day Years Used Date Smoking Tobacco: Former Cigarettes Smokeless Tobacco: Never Comments:Quit 15 + years ago Alcohol Use Standard Drinks/Week Comments Yes 0 (1 standard drink = 0.6 oz pur e alcohol) rare [facility] Utilities Answer Date Recorded In the past 12 months has e [employer], gas, oil, or water [employer] threatened to shut off services in your [...] PM EST Office Visit Cardiology at [address] [address] Neftali Ernandez MD [facility] [place] [address] documented as of this encounter Visit Diagnoses Diagnosis ASCVD (arteriosclerotic cardiovascular disease) Unspecified cardiovascular disease Nonrheumatic aortic valve stenosis Aortic valve disorders documented in this encounter Care Teams Psychiatrist Relationship Specialty Start Date End Date Vanessa Christian APRN [address] [place] [address] PCP - General Family Medicine 05/27/24 documented as of this encounter
--- OUTSIDE RECORDS SUMMARY | 2024-06-22 08:18 | XMS_ITS | Encounter Summary ---
Author Organization [facility] Address [facility] [place] [address] Care Team Providers Care Community Health Nursing Director Name Role Phone Vanessa Christian MAURI Primary Care Provider [phone] Encounter Details Date Type Department Care Team [...] PM EST Office Visit Cardiology at [address] [phone] Neftali Ernandez MD [facility] [place] [address] documented as of this encounter Visit Diagnoses Not on filedocumented in this encounter Care Teams Community Health Nursing Director Relationship Specialty Start Date End Date Vanessa Christian APRN PCP - General Family Medicine 10/21/23 05/26/24 documented as of this encounter
--- OUTSIDE RECORDS SUMMARY | 2024-06-22 08:19 | XMS_ITS | Encounter Summary ---
Author Organization [facility] [place] [address] Care Team Providers Care Broadcast Correspondent Name Role Phone Vanessa Christian APRN Primary Care Provider [phone] Encounter Details Date Type Department Care Team [...] PM EST Office Visit Cardiology at [address] [place] [phone] Neftali Ernandez MD [facility] [place] [address] documented as of this encounter Visit Diagnoses Not on filedocumented in this encounter Care Teams Broadcast Correspondent Relationship Specialty Start Date End Date Vanessa Christian APRN PCP - General Family Medicine 10/21/23 05/26/24 documented as of this encounter
--- OUTSIDE RECORDS SUMMARY | 2024-06-22 08:19 | XMS_ITS | Encounter Summary ---
Author Organization [facility] [address] Care Team Providers Care Geologic Technician Name Role Phone Vanessa Christian Lane DOTSON Primary Care Provider Encounter Details Date Type Department Care Team (Late st Contact Info) Description 01/09/2024 2:30 PM EDT Clinical Support Same Day at [facility] [place] [phone] Social History Tobacco Use Types Packs/Day Years Used Date Smoking Tobacco: Former Cigarettes Smokeless Tobacco: Never Comments:Quit 15 + years ago Alcohol Use Standard Drinks/Week Comments Yes 0 (1 standard drink = 0.6 oz pur e alcohol) rare [facility] Inpatient Questions Answer Date Recorded Prevent [...] you tube link for a video about [facility] cardiac [place]. Instructed to [...] type and screen performed while in the [facility]. Sent to Radiology for chest x-ray. Special medication instructions: None Procedure date: not booked. Darian documented in this encounter Plan of Treatment Upcoming Encounters Date Type Department Care Team (Late st Contact Info) Description 11/30/2024 3:00 PM EST Office Visit Cardiology at [address] [place] [address] Neftali Ernandez MD [facility] [place] [place] [address] documented as of this encounter Visit Diagnoses Not on filedocumented in this encounter Care Teams Geologic Technician Relationship Specialty Start Date End Date Vanessa Christian APRN PCP - General Family Medicine 10/21/23 05/26/24 documented as of this encounter
--- OUTSIDE RECORDS SUMMARY | 2024-06-22 08:19 | XMS_ITS | Encounter Summary ---
Author Organization [facility] [place] [address] Care Team Providers Care Railroad Car Painter Name Role Phone Vanessa Christian APRN Primary Care Provider [phone] Encounter Details Date Type Department Care Team (Late st Contact Info) Description 12/26/2023 Notes Only Cardiology at [address] [address] Neftali Ernandez MD [facility] [place] [address] Social History Tobacco Use Types Packs/Day Years [...] PM EDT Echocardiogram images reviewed from [facility]. Indeed, the aortic valve appears severely stenotic. Cannotrule out bicuspid valve documented in this encounter Plan of Treatment Upcoming Encounters Date Type Department Care Team (Late st Contact Info) Description 11/30/2024 3:00 PM EST Office Visit Cardiology at [address] [address] Neftali Ernandez MD [facility] [place] [address] documented as of this encounter Visit Diagnoses Not on filedocumented in this encounter Care Teams Railroad Car Painter Relationship Specialty Start Date End Date Vanessa Christian APRN PCP - General Family Medicine 10/21/23 05/26/24 documented as of this encounter
--- OUTSIDE RECORDS SUMMARY | 2024-06-22 08:19 | XMS_ITS | Encounter Summary ---
Author Organization [facility] [place] [address] Care Team Providers Care Tailor Fitter Name Role Phone Vanessa Christian APRN Primary Care Provider [phone] Encounter Details Date Type Department Care Team (Late st Contact Info) Description 10/21/2023 Abstract Cardiology at [address] [phone] Adam Mayes RN Social History Tobacco Use [...] PM EST Office Visit Cardiology at [address] [address] Neftali Ernandez MD [facility] [place] [address] documented as of this encounter Visit Diagnoses Not on filedocumented in this encounter Care Teams Tailor Fitter Relationship Specialty Start Date End Date Vanessa Christian APRN PCP - General Family Medicine 10/21/23 05/26/24 documented as of this encounter
--- OUTSIDE RECORDS SUMMARY | 2024-06-22 08:19 | XMS_ITS | Encounter Summary ---
[place] [address] Care Team Providers Care Junior Estimator Name Role Phone Aparna Jordan MAURI Primary Care Provider [phone] Reason for Visit * Auth/Cert (Routine) Specialty [...] ARTERIAL GRAFT (WRVU 7.93) Hayder Graham MD [facility] [place] [address] [facility] Referral ID Status Reason Start Date Expiration Date Visits Re quested Visits Authorized [id number] 1 1 Encounter Details Date Type Department Care Team (Late st Contact Info) Description 02/17/2024 7:30 AM EDT - 02/17/2024 1:26 PM EDT Surgery [place] [id number] Hayder Graham MD [facility] [place] [address] ENDOSCOPIC HARVEST VEIN(S) FOR CABG (WRVU 0.31) Social History Tobacco Use Types Packs/Day Years Used Date Smoking Tobacco: Former Cigarettes Smokeless Tobacco: Never Comments:Quit 15 + years ago Alcohol Use Standard Drinks/Week Comments Yes 0 (1 standard drink = 0.6 oz pur e alcohol) rare [facility] Utilities Answer Date Recorded In [...] 1-2 weeks. Patient to follow up with Physical Laboratory Assistant, Neftali Ernandez MD , in 2 weeks. Patient to follow up with Cardiac Surgeon, Dr. Hayder Graham, with a chest x-ray, EKG, and Echo. Inpatient Provider Contact Information: [facility] Section of Cardiac Surgery [facility] [address] FAX [phone] Discharge Diagnoses (Hospital Problems) Primary Diagnoses: /CAD [...] 33.75) performed by Hayder Graham MD at [facility] MAIN OR PRO CABG, ARTERY-VEIN, TWO N/A 02/17/2024 @CABG, TWO VENOUS GRAFTS & ARTERIAL GRAFT (WRVU 7.93) performed by Hayder Graham MD at [facility] MAIN OR PRO ENDOSCOPY W/VIDEO-ASST VEIN HARVEST, CABG Left 02/17/2024 ENDOSCOPIC HARVEST VEIN(S) FOR CABG (WRVU 0.31) performed by Hayder Graham MD at [facility] MAIN OR PRO REPLACEMENT PROSTHETIC AORTIC VALVE OPEN W CARDIOPULMONARY BYPASS HOMOGRF/STENT N/A 02/17/2024 @REPLACE AORTIC VALVE, OPEN, W\CPB, W\PROSTHETIC VALVE (WRVU 41.32) performed by Hayder Graham MD at [facility] MAIN OR Prior To Admission [...] insufficiency. He has glaucoma. He used to bacIndependent Space until about 15 years ago. He has undergone prior herniorrhaphy. 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 Major Procedures/Operations: 02/17/24 s/p avr/cabgx3 CABG x 3 JOSE->LAD SVG->dRCA SVG->OM1 EVH from LLE AVR with a 23 mm Inspiris Bioprosthesis Hospital Course: Karlos Garcia was [facility] to [facility] [...] Hayder Graham and/or the Cardiac Surgery Physician Fitness Management Director Team may be reached at . [...] Please refer to the card with the [place] [employer] Guidelines for more information. You [...] Dr. Hayder Graham. You may use a Vernal Track or treadmill but avoid any pulling [...] friends, go to a movie, go to anabaptist, etc. Heavy activities: No hunting, skiing, jogging, [...] should resume a low fat, low cholesterol, [place] Heart Association Diet. Driving: No driving until [...] while being managed by your PCP and/or Physical Laboratory Assistant. For future medication refills, please refer to your PCP and/or Physical Laboratory Assistant after your discharge from our service. Thank you REMOVE CHEST TUBE SUTURES ON OR AFTER 03/02/24 Home oxygen therapy: N/A Follow up appointments: You should follow up with your PCP, Aparna Jordan APRN, in 1-2 weeks. Our office will schedule an appointment with your Physical Laboratory Assistant, Neftali Ernandez MD , in 2 weeks. You have an appointment with your Cardiac Surgeon, Dr. Hayder Graham, 4 weeks with a chest x-ray, EKG, and Echo before your appointment. Cardiac Rehabilitation: Karlos Garcia was seen regarding participation in the outpatient Phase 2Cardiac Rehabilitation at [facility]. The patient agrees to a referral to this program. The referral will be sent at discharge and the patient should be contacted by the Program within 1- 2 weeks from discharge. Future Appointments and Orders Future Orders Complete By Expires Echocardiogram Transthoracic [92541 CPT(R)] 03/26/2024 09/25/2024 Process Instructions: Scheduling Instructions: Questions: Where will study be performed?: [facility] Does the patient have Congenital Heart Disease?: Does patient require sedation?: Sedation rationale: XR Chest PA & Lateral (Generic) [41514 14321 Custom] 03/26/2024 09/25/2024 Process Instructions: Scheduling Instructions: Questions: Portable exam?: Reason for exam and clinical history: s/p avr/cabg Clinical information / jerome questions for radiologist: Stat read required?: Date of injury if applicable: Requested Time: Where will study be performed?: [facility] Radiology Referral to Cardiac Rehab [MLE277 Custom] As directed Process Instructions: If no progress note charted, please enter Clinical details in comments. Scheduling Instructions: Questions: My question or request is: s/p AVR/CABG. Cardiac rehab at [facility]. Referral to Home Health [REF34 Custom] As directed Process Instructions: If no progress note charted, please enter Clinical details in comments. Scheduling Instructions: Comments: Please evaluate Karlos Garcia for admission to Home Health. [address] Phone Number: Date of : 1960 Inpatient DOCUMENTATION FOR VNA SERVICES (INCLUDING THOSE PATIENTS WITH MEDICARE COVERAGE REQUIRING HOME VNA SERVICES AND/OR HOSPICE SERVICES) PATIENT'S LOCATION: Karlos Garcia [address] [employer] [phone] Medication Tech's Name: self/family In discussion with the attending physician, it is certified that this patient is under their care and that they, or a Nurse Practitioner, or Physician Fitness Management Director who is working directly with them, [...] for services as follows: HOME HEALTH AGENCY: [facility] [address] [place] [phone] RN orders: Cardiopulmonary assessment, incisional assessment, assess [...] issues please call the Cardiology Office at [phone] FOR MEDICARE ONLY: (please delete this section [...] care: As above. Signed: NEFTALI MENON PA-C [facility] Section of Cardiac Surgery [facility] [address] FAX [phone] Date: 02/24/2024 CC: Aparna Jordan, MAURI Jordan, Aparna [place] APRN [address] [place] [address] documented in this encounter Discharge Instructions * [...] Hayder Graham and/or the Cardiac Surgery Physician Fitness Management Director Team may be reached at . [...] Please refer to the card with the [place] Heart Association Guidelines for more information. You [...] Dr. Hayder Graham. You may use a Vernal Track or treadmill but avoid any pulling [...] friends, go to a movie, go to anabaptist, etc. Heavy activities: No hunting, skiing, jogging, [...] should resume a low fat, low cholesterol, [place] Heart Association Diet. Driving: No driving until [...] while being managed by your PCP and/or Physical Laboratory Assistant. For future medication refills, please refer to your PCP and/or Physical Laboratory Assistant after your discharge from our service. Thank you REMOVE CHEST TUBE SUTURES ON OR AFTER 03/02/24 Home oxygen therapy: N/A Follow up appointments: You should follow up with your PCP, Aparna Jordan APRN, in 1-2 weeks. Our office will schedule an appointment with your Physical Laboratory Assistant, Neftali Ernandez MD , in 2 weeks. You have an appointment with your Cardiac Surgeon, Dr. Hayder Graham, 4 weeks with a chest x-ray, EKG, and Echo before your appointment. Cardiac Rehabilitation: Karlos Garcia was seen regarding participation in the outpatient Phase 2Cardiac Rehabilitation at [facility]. The patient agrees to [...] 0600 and on the weekends please page [phone]. * Eric Barahona PA - 02/23/2024 9:27 AM EDT Cardiac Surgery Progress Note Karlos Garica is a 63 y.o. male with and [...] 0600 and on the weekends please page [phone]. * Tiffanie Owens - 02/22/2024 2:48 PM [...] Pt reports his dtr is coming from [place] to stay upon d/c for 10 days. 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 * Kelley Hinson ASSEMBLY LOADER - 02/21/2024 10:15 AM EDT Physical Therapy [...] Pt reports his dtr is coming from [place] to stay upon d/c for 10 days. 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 * Kelley Hinson PTA - 02/20/2024 3:32 [...] at that time Kelley Hinson PTA Pager: [phone] Physical Therapy Inpatient Rehab Department * Louisa [...] 0600 and on the weekends please page [phone]. * Maris Benavides, PT - 02/19/2024 11:22 [...] Pt reports his dtr is coming from [place] to stay upon d/c for 10 days. 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 Precautions/Special Considerations: STERNAL [...] outlined inthis evaluation. MARIS BENAVIDES, PT Pager: [phone] Physical Therapy Inpatient Rehabilitation Department Time IN / OUT: 9059-6331 Total Time: 38 (eval) minutes; * Antonio [...] 0600 and on the weekends please page [phone]. * Minnie Begum PA - 02/18/2024 8:25 [...] site CDI with SANJANA wrap Tubes/Lines/Drains: RIJ/PAC, Boling, Med Ctx, L pleural CT, TPW, Naqvi [...] 0600 and on the weekends please page [phone]. * Kim Ha SHOE CLEANER - 02/17/2024 2:25 PM EDT Respiratory Care [...] plan since last visit. Hayder Graham MD [phone] Source Note - Hayder Graham MD - [...] given written informed consent. Hayder Graham MD [phone] * Hayder Graham MD - 02/17/2024 7:00 [...] given written informed consent. Hayder Graham MD [phone] documented in this encounter Miscellaneous Notes * [...] information for follow-up Home Health & Hospice, [address] [place] [address] Cardiac Rehab, [address] [place] [address] Transportation: family or friend will provide Functional status prior to admission: Independent Home Environment: Others in the home: alone. Current Living Arrangements: home/apartment/condo. Accessibility Concerns:a few steps to enter 1 floor home. Current Functional Ability: Assistive Person and Equipment DME used at home: none DME Needed at Discharge: N/A Patient is insured through: Primary Insurance: [employer] Payor: [facility] / Plan: [facility] PPO / Product Type: [...] pain managed with scheduled Tylenol. Worked with [employer]. Ambulated in the roque multiple times during [...] Patient is insured through: Primary Insurance: [facility] Payor: [facility] / Plan: [facility] PPO / Product Type: [...] Services: Physical Therapy, Registered Nurse Agency Referrals: [facility]. [address] [place] [address] Transportation: family or friend will provide Barriers to discharge: Discharge planning Plan going forward: Service Care Management will continue to follow and assist with discharge planning and coordination of care as indicated. Anticipated Date of Discharge: 02/22/2024 Rhett Bell RN RN/CM - Cellphone: [phone] Pager: [phone] Covering Service RN/CM * Plan of Care [...] Yang RN - 02/19/2024 10:44 AM EDT [facility] CARDI[facility]ILITATION Karlos Garcia was seen today regarding participation in the outpatient Phase 2 Cardiac Rehabilitation at [facility]. The patient agrees to [...] receiving care in [place] must abide by [place] law. The hierarchy [...] (i) The agent with financial power of defense attorney or a conservator appointed in accordance [...] place to sleep or slept in [facility] (including now)?: No In the past 12 months has the [employer], gas, oil, or water scoo mobility threatened to shut off services in your [...] [address] [facility] [address] Physical address: [address] [facility], [address] Social & Family Supports: All names listed [...] none noted Health/Prescription Coverage: Primary Insurance: [facility] Payor: [facility] / Plan: [facility] PPO / Product Type: *No Product type* / Secondary Insurance: N/A ; Prescription Coverage: Yes Preferred Pharmacy: [id number] [address] Status: Patient is a : No Primary Care Provider confirmed: Aparna Jordan APRN [phone] Patient/Caregiver Goals of Treatment: dc to home Potential Needs for Transition of Care: home health care Agency Referrals: I have met with the patient to: discuss discharge planning needs. provide the [facility], Office of Care Management letter from the [employer] pertaining to rehab referrals. provide a letter describing our affiliations within the [facility] and educate about their right to choose where referrals are sent. provide a list of Home Health Agencies / Durable Medical Equipment vendors which serve their preferred geographic area. provided patient with [facility] Star Quality Rating handout. They have requested referrals to: [facility] [address] [place] [address] Note routed to a Chiller Hand who will communicate referrals to facilities and [...] daughter, Cielo, will be coming in from [place] on 02/18, to stay with him [...] Reina Greene RN CM, BSN, CMGT- Ext [phone] * Plan of Care - Binta Trinidad [...] Operative Note Patient Name: Karlos Garcia : [id number] MR#: [id number] Case Date: 02/17/2024 Surgeon: Surgeon(s) and Role: * Hayder Graham MD - Primary * Neftali Menon PA - Physician Fitness Management Director Preoperative diagnosis: CAD Postoperative diagnosis: CAD, [...] Graham MD - 02/17/2024 8:20 AM EDT [facility] Operative Note Patient Name: Karlos Garcia : [id number] MR#: [id number] Case Date: 02/17/2024 Surgeon: Surgeons and Role: * Hayder Graham MD - Primary * Neftali Menon PA - Physician Fitness Management Director Preoperative diagnosis: CAD Postoperative diagnosis: CAD, [...] PM EST Office Visit Cardiology at [address] [address] Neftali Ernandez MD [facility] [place] [address] Scheduled Orders Name Type Priority Associated Diagnoses [...] Aortic Valve Open W Cardiopulmonary Bypass Homogrf/Stent (42367) Yes 02/17/2024 7:28 AM EDT CAD Cabg, Artery-Vein, Two (67404) Yes 02/17/2024 7:28 AM EDT CAD Cabg, Arterial, Single (03765) Yes 02/17/2024 7:28 AM EDT CAD Endoscopy W/Video-Asst Vein [place], Cabg (05206) Yes 02/17/2024 7:28 AM EDT CAD POCT GLUCOSE Routine 02/17/2024 6:38 AM EDT TRANSESOPHAGEAL ECHOCARDIOGRAM IN THE OR Routine 02/17/2024 6:33 AM EDT Aortic valve stenosis, etiology of cardiac valve disease unspecified LAB SCAN 02/17/2024 12:00 AM EDT IMPLANTABLE DEVICES SCAN 02/17/2024 12:00 AM EDT documented in this encounter Results * Potassium (02/24/2024 4:42 AM EDT) Potassium 4.0 3.5 - 5.0 mmol/L [facility] Comment: Please note: ??Patients with WBC >100,000 may have falsely elevated Potassium levels. ??For accurate Potassium quantification in these patients send serum separator tube (gold top) for subsequent determinations. ??Contact the Clinical Chemistry Laboratory if there are any questions. Blood 02/24/2024 4:42 AM EDT 02/24/2024 4:59 AM EDT Narrative Resulting Agency Comment Spec In Lab Hayder Graham MD CHEMISTRY ORDERABLE S [facility] [place] [address] * (ABNORMAL) Basic Metabolic Panel (non-fasting) (02/23/2024 4:24 AM EDT) Glucose 117 65 - 199 mg/dL [facility] Comment:Diabetes: >=200 mg/d L plus symptoms Blood Urea Nitrogen 18 10 - 20 mg/dL [facility] Creatinine 0.71(L) 0.80 - 1.50 mg/dL [facility] Sodium 138 135 - 145 mmol/L [facility] Potassium 4.4 3.5 - 5.0 mmol/L [facility] Comment: Please note: ??Patients with WBC >100,000 may have falsely elevated Potassium levels. ??For accurate Potassium quantification in these patients send serum separator tube (gold top) for subsequent determinations. ??Contact the Clinical Chemistry Laboratory if there are any questions. Chloride 101 98 - 107 mmol/L [facility] Carbon Dioxide 26 22 - 31 mmol/L [facility] Anion Gap 11 5 - 15 mmol/L [facility] Calcium 8.8 8.5 - 10.5 mg/dL [facility] Est Glomerular Filtration Rate 102 >=60 mL/min/1. 73 m?? [facility] Comment: This patient's estimated GFR [...] In Lab Romeo Carpio MD CHEMISTRY ORDERABLES [facility] [place] [address] * Potassium (02/22/2024 4:30 AM EDT) Potassium 3.5 3.5 - 5.0 mmol/L [facility] Comment: Please note: ??Patients with WBC >100,000 may have falsely elevated Potassium levels. ??For accurate Potassium quantification in these patients send serum separator tube (gold top) for subsequent determinations. ??Contact the Clinical Chemistry Laboratory if there are any questions. Blood 02/22/2024 4:30 AM EDT 02/22/2024 5:12 AM EDT Narrative Resulting Agency Comment Spec In Lab Hayder Graham MD CHEMISTRY ORDERABLE S [facility] [place] [address] * (ABNORMAL) Basic Metabolic Panel (non-fasting) (02/21/2024 9:45 AM EDT) Glucose 123 65 - 199 mg/dL [facility] Comment:Diabetes: >=200 mg/d L plus symptoms Blood Urea Nitrogen 22(H) 10 - 20 mg/dL [facility] Creatinine 0.78(L) 0.80 - 1.50 mg/dL [facility] Sodium 140 135 - 145 mmol/L [facility] Potassium 3.9 3.5 - 5.0 mmol/L [facility] Comment: Please note: ??Patients with WBC >100,000 may have falsely elevated Potassium levels. ??For accurate Potassium quantification in these patients send serum separator tube (gold top) for subsequent determinations. ??Contact the Clinical Chemistry Laboratory if there are any questions. Chloride 100 98 - 107 mmol/L [facility] Carbon Dioxide Not Perf 22 - 31 [facility] Comment:Add-on request. Yolanda le too old to perform test. Anion Gap Unable to Calculate 5 - 15 mmol/L [facility] Calcium 8.6 8.5 - 10.5 mg/dL [facility] Est Glomerular Filtration Rate 100 >=60 mL/min/1 .73 m?? [facility] Comment: This patient's estimated GFR [...] In Lab Romeo Carpio MD CHEMISTRY ORDERABLES [facility] [place] [address] * Lactate, whole blood, send to lab ([facility]) (02/21/2024 9:45 AM EDT) [facility] Lactate WB 2.0 0.5 - 2.2 mmol/L [facility] Blood 02/21/2024 9:45 AM EDT 02/21/2024 9:52 AM EDT Narrative Resulting Agency Comment Spec In Lab Hayder Graham MD CHEMISTRY ORDERABLE S Performing Organization Address [facility] Co de Phone Number [facility] [place] [address] * (ABNORMAL) Hepatic Function Panel (02/21/2024 9:45 AM EDT) [facility] Protein, Total 5.7(L) 6.1 - 8.0 g/dL [facility] Albumin 3.3 3.2 - 5.2 g/dL [facility] Aspartate Aminotransferase 13 0 - 39 unit/L [facility] Alanine Aminotransferase 16 0 - 55 unit/L [facility] Alkaline Phosphatase 63 40 - 130 unit/L [facility] Bilirubin, Total 0.6 0.2 - 1.3 mg/dL [facility] Bilirubin, Direct 0.2 0.0 - 0.3 mg/dL [facility] Blood 02/21/2024 9:45 AM EDT 02/21/2024 9:52 AM EDT Narrative Resulting Agency Comment Spec In Lab Hayder Graham MD CHEMISTRY ORDERABLE S [facility] [place] [address] * Lipase (02/21/2024 9:45 AM EDT) Lipase 56 0 - 60 unit/L [facility] Blood 02/21/2024 9:45 AM EDT 02/21/2024 9:52 AM EDT Narrative Resulting Agency Comment Spec In Lab Hayder Graham MD CHEMISTRY ORDERABLE S [facility] [place] [address] * Amylase (02/21/2024 9:45 AM EDT) Amylase 69 28 - 100 unit/L [facility] Blood 02/21/2024 9:45 AM EDT 02/21/2024 9:52 AM EDT Narrative Resulting Agency Comment Spec In Lab Hayder Graham MD CHEMISTRY ORDERABLE S Performing Organization Address City/[facility]/ZIP Co de Phone Number [facility] [place] [address] * Potassium (02/21/2024 3:08 AM EDT) Potassium 3.8 3.5 - 5.0 mmol/L [facility] Comment: Please note: ??Patients with WBC >100,000 may have falsely elevated Potassium levels. ??For accurate Potassium quantification in these patients send serum separator tube (gold top) for subsequent determinations. ??Contact the Clinical Chemistry Laboratory if there are any questions. Blood 02/21/2024 3:08 AM EDT 02/21/2024 3:28 AM EDT Narrative Resulting Agency Comment Spec In Lab Hayder Graham MD CHEMISTRY ORDERABLE S [facility] [place] [address] * XR Chest PA & Lateral (Generic) (02/20/2024 10:19 AM EDT) WORKSTATION ID [id number] RAD Anatomical Region Laterality Modality Chest N/A Digital Radiogra phy Impressions 02/20/2024 1:11 PM EDT Small pleural effusions. No pneumothorax Thank you for letting us participate in the care of this patient. ??If you are a health care provider and have any questions regarding this report, please contact the number below. ??For patients who have questions please contact the health animal care worker that requested your imaging first. ? Electronically signed by: Rogerio Cruz MD, [facility] ??([phone]), at 02/20/2024 1:11 PM Narrative 02/20/2024 1:11 PM EDT EXAMINATION: XR CHEST PA AND LATERAL (GENERIC) CLINICAL HISTORY: s/p AVR/CABGx3 TECHNIQUE: PA and lateral views of the chest COMPARISON: 02/17/2024 FINDINGS: Support devices: Interval removal of Dodson-Kaila catheter, endotracheal tube and mediastinal chest tubes The cardiac silhouette is stable status post median sternotomy, CABG and aortic valve replacement. There are small pleural effusions. No pneumothorax. Procedure Note Rogerio Cruz MD - 02/20/2024 EXAMINATION: XR CHEST PA AND LATERAL (GENERIC) CLINICAL HISTORY: s/p AVR/CABGx3 TECHNIQUE: PA and lateral views of the chest COMPARISON: 02/17/2024 FINDINGS: Support devices: Interval removal of Dodson-Kaila catheter, endotracheal tubeand mediastinal chest tubes The [...] have questions please contactthe health animal care worker that requested your imaging first. Hayder Graham MD IMG DX ORDERABLES * Scan, Peripheral Blood (02/20/2024 4:23 AM EDT) Pathologist [facility] estimate Decreased [facility] RBC Morphology Normal [facility] Blood 02/20/2024 4:23 AM EDT 02/20/2024 4:42 AM EDT Narrative Resulting Agency Comment Spec In Lab Minnie FRENCH HEMATOLOGY CECILIO ALEMAN [facility] [place] [id number] * (ABNORMAL) Differential, Automated (02/20/2024 4:23 AM EDT) [facility] Neutrophil % 81.7 % [facility] Neutrophil Absolute 10.37(H) 1.70 - 6.10 x10(3)/mc L [facility] Lymph % 7.4 % [facility] Lymphocytes Abs 0.9 0.9 - 3.2 x10(3)/mc L [facility] Monocyte % 9.7 % [facility] Monocyte Abs 1.2(H) 0.3 - 0.9 x10(3)/mc L [facility] Eos % 0.1 % [facility] Eosinophils Abs 0.0 0.0 - 0.4 x10(3)/mc L [facility] Basophil % 0.2 % [facility] Baso Absolute 0.0 0.0 - 0.1 x10(3)/mc L [facility] Immature Gran % 0.90 % [facility] Comment: Immature granulocytes(IG's)percentage and absolute count will include metamyelocytes, myelocytes, and promyelocytes. Blood smears from CBCs yielding IG's will be scanned manually for concordance. If this scan disagrees with the automated IG or if promyelocytes are noted, a manual differential will be performed. Immature Gran Absolute 0.12(H) 0.00 - 0.04 x10(3)/mc L [facility] Blood 02/20/2024 4:23 AM EDT 02/20/2024 4:42 AM EDT Narrative Resulting Agency Comment Spec In Lab Minnie FRENCH HEMATOLOGY CECILIO ALEMAN [facility] [place] [address] * (ABNORMAL) Hemogram (02/20/2024 4:23 AM EDT) White Blood Cell 12.7(H) 4.0 - 9.5 x10(3)/ L [facility] Red Blood Cell 4.26(L) 4.58 - 5.54 x10(6)/mc L [facility] Hemoglobin 12.3(L) 13.7 - 16.5 g/dL [facility] Hematocrit 37.1(L) 40.5 - 48.5 % [facility] Mean Cell Volume 87.1 82.9 - 93.1 fL [facility] Mean Cell Hemoglobin 28.9 27.5 - 32.1 pg [facility] Mean Cell Hemoglobin Concentration 33.2 32.0 - 35.7 g/dL [facility] Platelet 88(L) 145 - 357 x10(3)/ L [facility] RDW Standard Deviation 43.5 36.0 - 45.0 fL [facility] RDW coefficient of variation 13.7 11.4 - 13.8 % [facility] Mean Platelet Volume 10.2 7.6 - 12.9 fL [facility] NRBC% auto 0.0 % [facility] NRBC Absolute 0.000 0.000 - 0.000 x10(3)/mc L [facility] Blood 02/20/2024 4:23 AM EDT 02/20/2024 4:42 AM EDT Narrative Resulting Agency Comment Spec In Lab Minnie FRENCH HEMATOLOGY CECILIO ALEMAN [facility] [place] [address] * (ABNORMAL) Basic Metabolic Panel (non-fasting) (02/20/2024 4:23 AM EDT) Glucose 113 65 - 199 mg/dL [facility] Comment:Diabetes: >=200 mg/d L plus symptoms Blood Urea Nitrogen 20 10 - 20 mg/dL [facility] Comment:result rechecked-PR Creatinine 0.71(L) 0.80 - 1.50 mg/dL [facility] Sodium 135 135 - 145 mmol/L [facility] Potassium 3.9 3.5 - 5.0 mmol/L [facility] Comment: Please note: ??Patients with WBC >100,000 may have falsely elevated Potassium levels. ??For accurate Potassium quantification in these patients send serum separator tube (gold top) for subsequent determinations. ??Contact the Clinical Chemistry Laboratory if there are any questions. Chloride 102 98 - 107 mmol/L [facility] Carbon Dioxide 25 22 - 31 mmol/L [facility] Anion Gap 8 5 - 15 mmol/L [facility] Calcium 8.7 8.5 - 10.5 mg/dL [facility] Comment:result rechecked-KS Est Glomerular Filtration Rate 102 >=60 mL/min/1. 73 m?? [facility] Comment: This patient's estimated GFR [...] MD CHEMISTRY ORDERABLE S Performing Organization Address [facility] Co de Phone Number [facility] [place] [address] * Potassium (02/19/2024 3:57 AM EDT) Potassium 4.3 3.5 - 5.0 mmol/L [facility] Comment: Please note: ??Patients with [...] MD CHEMISTRY ORDERABLE S Performing Organization Address [facility]/ZIP Co de Phone Number [facility] [place] [address] * POCT Glucose (02/18/2024 8:24 AM EDT) Glucose, POC 157 65 - 199 mg/dL [facility] Comment: Supplemental ranges: <140 mg/dL before meals <180 mg/dL all other times of the day Blood 02/18/2024 8:24 AM EDT 02/18/2024 8:24 AM EDT Hayder Graham MD POINT OF CARE TEST ORDERABLES Performing Organization Address City/[facility]/ZIP Co de Phone Number [facility] [place] [address] * Scan, Peripheral Blood (02/18/2024 1:40 AM EDT) Plat estimate Decreased [facility] RBC Morphology Normal [facility] Blood 02/18/2024 1:40 AM EDT 02/18/2024 1:56 AM EDT Narrative Resulting Agency Comment Spec In Lab Neftali FRENCH HEMATOLOGY ORDER OLE Performing Organization Address City/[facility] Co de Phone Number [facility] [place] [address] * (ABNORMAL) Differential, Automated (02/18/2024 1:40 AM EDT) [facility] Neutrophil % 87.1 % [facility] Neutrophil Absolute 15.03(H) 1.70 - 6.10 x10(3)/mc L [facility] Lymph % 3.0 % [facility] Lymphocytes Abs 0.5(L) 0.9 - 3.2 x10(3)/mc L [facility] Monocyte % 9.1 % [facility] Monocyte Abs 1.6(H) 0.3 - 0.9 x10(3)/mc L [facility] Eos % 0.0 % [facility] Eosinophils Abs 0.0 0.0 - 0.4 x10(3)/mc L [facility] Basophil % 0.2 % [facility] Baso Absolute 0.0 0.0 - 0.1 x10(3)/mc L [facility] Immature Gran % 0.60 % [facility] Comment: Immature granulocytes(IG's)percentage and absolute count will include metamyelocytes, myelocytes, and promyelocytes. Blood smears from CBCs yielding IG's will be scanned manually for concordance. If this scan disagrees with the automated IG or if promyelocytes are noted, a manual differential will be performed. Immature Gran Absolute 0.10(H) 0.00 - 0.04 x10(3)/mc L [facility] Blood 02/18/2024 1:40 AM EDT 02/18/2024 1:56 AM EDT Narrative Resulting Agency Comment Spec In Lab Neftali FRENCH HEMATOLOGY ORDER OLE [facility] [place] [address] * (ABNORMAL) Hemogram (02/18/2024 1:40 AM EDT) White Blood Cell 17.2(H) 4.0 - 9.5 x10(3)/mc L [facility] Red Blood Cell 4.71 4.58 - 5.54 x10(6)/mc L [facility] Hemoglobin 13.7 13.7 - 16.5 g/dL [facility] Hematocrit 39.2(L) 40.5 - 48.5 % [facility] Mean Cell Volume 83.2 82.9 - 93.1 fL [facility] Mean Cell Hemoglobin 29.1 27.5 - 32.1 pg [facility] Mean Cell Hemoglobin Concentration 34.9 32.0 - 35.7 g/dL [facility] Platelet 147 145 - 357 x10(3)/mc L [facility] RDW Standard Deviation 39.9 36.0 - 45.0 [facility] RDW coefficient of variation 13.2 11.4 - 13.8 % [facility] Mean Platelet Volume 9.9 7.6 - 12.9 fL [facility] NRBC% auto 0.0 % [facility] NRBC Absolute 0.000 0.000 - 0.000 x10(3)/mc L [facility] Blood 02/18/2024 1:40 AM EDT 02/18/2024 1:56 AM EDT Narrative Resulting Agency Comment Spec In Lab Neftali FRENCH HEMATOLOGY ORDER OLE [facility] [place] [address] * (ABNORMAL) Basic Metabolic Panel (non-fasting) (02/18/2024 1:40 AM EDT) Glucose 176 65 - 199 mg/dL [facility] Comment:Diabetes: >=200 mg/d L plus symptoms Blood Urea Nitrogen 10 10 - 20 mg/dL [facility] Creatinine 0.65(L) 0.80 - 1.50 mg/dL [facility] Sodium 135 135 - 145 mmol/L [facility] Potassium 4.2 3.5 - 5.0 mmol/L [facility] Comment: Please note: ??Patients with WBC >100,000 may have falsely elevated Potassium levels. ??For accurate Potassium quantification in these patients send serum separator tube (gold top) for subsequent determinations. ??Contact the Clinical Chemistry Laboratory if there are any questions. Chloride 106 98 - 107 mmol/L [facility] Carbon Dioxide 20(L) 22 - 31 mmol/L [facility] Anion Gap 9 5 - 15 mmol/L [facility] Calcium 7.6(L) 8.5 - 10.5 mg/dL [facility] Est Glomerular Filtration Rate 105 >=60 mL/min/1. 73 m?? [facility] Comment: This patient's estimated GFR [...] Lab Hayder Graham MD CHEMISTRY ORDERABLE S [facility] [place] [address] * (ABNORMAL) Troponin (02/18/2024 1:40 AM EDT) Pathologist [facility] Troponin-T, High Sensitivity 342(H) <=22 ng/L [facility] Comment: This patient's troponin T [...] troponin value can be found in the [facility] Test Catalog Troponin - [facility] Test Catalog Reference: Fourth [place] Definition of Myocardial Infarction. Journal of the [employer] [employer] 2018;72:9932-7945 Blood 02/18/2024 1:40 AM EDT 02/18/2024 1:56 AM EDT Narrative Resulting Agency Comment Spec In Lab Hayder Graham MD CHEMISTRY ORDERABLE S Performing Organization Address [facility] Co de Phone Number [facility] [place] [address] * POCT Glucose (02/17/2024 8:13 PM EDT) Glucose, POC 142 65 - 199 mg/dL [facility] Comment: Supplemental ranges: <140 mg/dL before meals <180 mg/dL all other times of the day Blood 02/17/2024 8:13 PM EDT 02/17/2024 8:13 PM EDT Hayedr Graham MD POINT OF CARE TEST ORDERABLES Performing Organization Address [facility] de Phone Number [facility] [place] [address] * POCT Glucose (02/17/2024 5:42 PM EDT) Glucose, POC 160 65 - 199 mg/dL [facility] Comment: Supplemental ranges: <140 mg/dL before meals <180 mg/dL all other times of the day Blood 02/17/2024 5:42 PM EDT 02/17/2024 5:42 PM EDT Hayder Graham MD POINT OF CARE TEST ORDERABLES Performing Organization Address [facility] Co de Phone Number [facility] [place] [address] * Hemoglobin (02/17/2024 5:42 PM EDT) Hemoglobin 13.7 13.7 - 16.5 g/dL [facility] Blood 02/17/2024 5:42 PM EDT 02/17/2024 6:10 PM EDT Narrative Resulting Agency Comment Spec In Lab Hayder Graham MD HEMATOLOGY ORDERABL ES Performing Organization Address [facility]/ZIP Co de Phone Number [facility] [place] [address] * Potassium (02/17/2024 5:42 PM EDT) Pathologist [facility] Potassium 4.3 3.5 - 5.0 mmol/L [facility] Comment: Please note: ??Patients with [...] MD CHEMISTRY ORDERABLE S Performing Organization Address [facility] Co de Phone Number [facility] [place] [address] * (ABNORMAL) BLOOD GAS 2 ARTERIAL (02/17/2024 4:18 PM EDT) pH, Arterial 7.34(L) 7.35 - 7.45 [facility] PCO2, Arterial 40 35 - 45 mmHg [facility] PO2, Arterial 78(L) 85 - 104 mmHg [facility] Bicarbonate, Arterial 20.8 20.0 - 26.0 mmol/L [facility] Base Excess, Arterial -5.1(L) -3.0 - 3.0 mmol/L [facility] Hgb Blood Gas 14.6 13.7 - 16.5 g/dL [facility] Oxyhemoglobin, Arterial 93.0(L) 94.0 - 97.0 % [facility] Carboxyhemoglob in, Arterial 0.3 % [facility] Comment: Nonsmokers: 0.5-1.5% COHB Smokers: Variable, but usually less than 10% Toxic: 20-30% COHB Lethal: Greater than 60% COHB Methemoglobin, Arterial 0.8 <=1.5 % [facility] Na Whole Blood 136 135 - 145 mmol/L [facility] K Whole Blood 4.1 3.5 - 5.0 mmol/L [facility] Comment: Please note: Patients with WBC >100,000 may have falsely elevated Potassium levels. Contact the Clinical Chemistry Laboratory if there are any questions. ICa Whole Blood 1.10(L) 1.15 - 1.33 mmol/L [facility] Comment: Note: ??Total bilirubin higher than 20 mg/dL may lead to falsely low ionized calcium. CL Whole Blood 105 98 - 107 mmol/L [facility] Gluc Whole Bld 159 65 - 199 mg/dL [facility] Comment:Diabetes: >=200 mg/d L plus symptoms. Lactate WB 1.2 0.5 - 2.2 mmol/L [facility] FIO2 Art 40 % [facility] PF Ratio Art [address] [facility] Blood 02/17/2024 4:18 PM EDT 02/17/2024 4:18 PM EDT Hayder Graham MD POINT OF CARE TEST ORDERABLES Performing Organization Address City/State/[facility] Co de Phone Number [facility] [place] [address] * XR Chest One View (02/17/2024 1:44 PM EDT) Cell>Point WORKSTATION ID [id number] RAD Anatomical Region Laterality Modality Chest N/A Digital Radiogra phy Impressions 02/17/2024 2:12 PM EDT 1. ??No definite pleural fluid collection or pneumothorax. 2. ??Right IJ Dodson-Kaila catheter tip terminates in a descending branch [...] questions please contact the health animal care worker that requested your imaging first. ? Electronically signed by: Denzel Hankins MD, [facility] ??([phone]), at 02/17/2024 2:12 PM Narrative 02/17/2024 2:12 PM EDT EXAMINATION: XR CHEST ONE VIEW CLINICAL HISTORY: s/p avr/cabg eval effusions TECHNIQUE: 1 view of the chest COMPARISON: Chest x-ray 01/09/2024, chest CT 02/03/2024 FINDINGS: ET tube tip terminates 5.2 cm above the carlos. Right IJ Dodson-Kaila catheter tip terminates in a descending branch [...] 5.2 cm above the carlos. Right IJ Dodson-Ganzcatheter tip terminates in a descending branch of [...] fluid collection or pneumothorax. 2. Right IJ Dodson-Kaila catheter tip terminates in a descending branch ofthe right pulmonary artery. Suggest catheter retraction. 3. Additional support lines and tubes as above. Thank you for letting us participate in the care of this patient. If youare a health care provider and have any questions regarding this report,please contact the number below. For patients who have questions please contactthe health animal care worker that requested your imaging first. Electronically signed by: Denzel Hankins MD, [facility]([phone]), at 02/17/2024 2:12 PM Hayder Graham MD IMG DX ORDERABLES * (ABNORMAL) BLOOD GAS 2 ARTERIAL (02/17/2024 1:31 PM EDT) pH, Arterial 7.35 7.35 - 7.45 [facility] PCO2, Arterial 39 35 - 45 mmHg [facility] PO2, Arterial 320(H) 85 - 104 mmHg [facility] Bicarbonate, Arterial 21.4 20.0 - 26.0 mmol/L [facility] Base Excess, Arterial -4.2(L) -3.0 - 3.0 mmol/L [facility] Hgb Blood Gas 14.1 13.7 - 16.5 g/dL [facility] Oxyhemoglobin, Arterial 97.9(H) 94.0 - 97.0 % [facility] Carboxyhemoglob in, Arterial 0.3 % [facility] Comment: Nonsmokers: 0.5-1.5% COHB Smokers: Variable, but usually less than 10% Toxic: 20-30% COHB Lethal: Greater than 60% COHB Methemoglobin, Arterial 0.7 <=1.5 % [facility] Na Whole Blood 137 135 - 145 mmol/L [facility] K Whole Blood 4.2 3.5 - 5.0 mmol/L [facility] Comment: Please note: Patients with WBC >100,000 may have falsely elevated Potassium levels. Contact the Clinical Chemistry Laboratory if there are any questions. ICa Whole Blood 1.13(L) 1.15 - 1.33 mmol/L [facility] Comment: Note: ??Total bilirubin higher than 20 mg/dL may lead to falsely low ionized calcium. CL Whole Blood 108(H) 98 - 107 mmol/L [facility] Gluc Whole Bld 136 65 - 199 mg/dL [facility] Comment:Diabetes: >=200 mg/d L plus symptoms. Lactate WB 1.1 0.5 - 2.2 mmol/L [facility] FIO2 Art 100 % [facility] PF Ratio Art [address] [facility] Blood 02/17/2024 1:31 PM EDT 02/17/2024 1:31 PM EDT Hayder Graham MD POINT OF CARE TEST ORDERABLES [facility] [place] [address] * (ABNORMAL) Coox2 (02/17/2024 1:21 PM EDT) pO2, Coox 44 mmHg [facility] Hgb Blood Gas 13.1(L) 13.7 - 16.5 g/dL [facility] Oxyhemoglobin, Coox 76.4 % [facility] Carboxyhemoglo bin, Coox 0.3 % [facility] Comment: Nonsmokers: 0.5-1.5% COHB Smokers: Variable, but usually less than 10% Toxic: 20-30% COHB Lethal: Greater than 60% COHB Methemoglobin, Coox 0.8 <=1.5 % [facility] Source Coox Mixed Venous [facility] Blood 02/17/2024 1:21 PM EDT 02/17/2024 1:21 PM EDT Hayder Graham MD POINT OF CARE TEST ORDERABLES [facility] [place] [address] * (ABNORMAL) BLOOD GAS 2 ARTERIAL (02/17/2024 12:14 PM EDT) pH, Arterial 7.39 7.35 - 7.45 [facility] PCO2, Arterial 40 35 - 45 mmHg [facility] PO2, Arterial 338(H) 85 - 104 mmHg [facility] Bicarbonate, Arterial 23.7 20.0 - 26.0 mmol/L [facility] Base Excess, Arterial -1.3 -3.0 - 3.0 mmol/L [facility] Hgb Blood Gas 11.0(L) 13.7 - 16.5 g/dL [facility] Oxyhemoglobin, Arterial 98.8(H) 94.0 - 97.0 % [facility] Carboxyhemoglob in, Arterial 0.3 % [facility] Comment: Nonsmokers: 0.5-1.5% COHB Smokers: Variable, but usually less than 10% Toxic: 20-30% COHB Lethal: Greater than 60% COHB Methemoglobin, Arterial 0.3 <=1.5 % [facility] Na Whole Blood 135 135 - 145 mmol/L [facility] K Whole Blood 5.1(H) 3.5 - 5.0 mmol/L [facility] Comment: Please note: Patients with WBC >100,000 may have falsely elevated Potassium levels. Contact the Clinical Chemistry Laboratory if there are any questions. ICa Whole Blood 1.13(L) 1.15 - 1.33 mmol/L [facility] Comment: Note: ??Total bilirubin higher than 20 mg/dL may lead to falsely low ionized calcium. CL Whole Blood 106 98 - 107 mmol/L [facility] Gluc Whole Bld 132 65 - 199 mg/dL [facility] Comment:Diabetes: >=200 mg/d L plus symptoms. Lactate WB 1.4 0.5 - 2.2 mmol/L [facility] Blood 02/17/2024 12:1 4 PM EDT 02/17/2024 12:14 PM EDT Hayder Graham MD POINT OF CARE TEST ORDERABLES Performing Organization Address [facility] Co de Phone Number [facility] [place] [address] * (ABNORMAL) Fibrinogen (02/17/2024 12:10 PM EDT) Fibrinogen 154(L) 200 - 393 mg/dL [facility] Comment: OR Result called by ?? LOMARL OR Results read back by: ? alondra pagan at 2024-02-17 12:41:48 A fibrinogen level >100 mg/dL is adequate for hemostasis in most patients without underlying bleeding disorders. Blood 02/17/2024 12:1 0 PM EDT 02/17/2024 12:19 PM EDT Narrative Resulting Agency Comment Spec In Lab Tara York MD HEMATOLOGY ORDERABLE S Performing Organization Address [facility] Co de Phone Number [facility] [place] [address] * (ABNORMAL) Thrombin time (02/17/2024 12:10 PM EDT) Thrombin Time 18(H) 10 - 17 sec [facility] Comment: OR Result called by [...] MD HEMATOLOGY ORDERABLE S Performing Organization Address [facility] Co de Phone Number [facility] [place] [address] * APTT (02/17/2024 12:10 PM EDT) Partial Thromboplastin Time 33 25 - 37 sec [facility] Comment: OR Result called by [...] MD HEMATOLOGY ORDERABLE S Performing Organization Address [facility]/ZIP Co de Phone Number [facility] [place] [address] * (ABNORMAL) Prothrombin Time (02/17/2024 12:10 PM EDT) Prothrombin Time 16.7(H) 9.4 - 12.5 sec [facility] Comment: OR Result called by ?? LOMARL OR Results read back by: ? alondra pagan at 2024-02-17 12:41:48 International Normalization Ratio 1.5 [facility] Comment: OR Result called by [...] Lab Tara York MD HEMATOLOGY ORDERABLE S [facility] [place] [address] * (ABNORMAL) Hemogram (02/17/2024 12:10 PM EDT) White Blood Cell 11.1(H) 4.0 - 9.5 x10(3)/mc L [facility] Red Blood Cell 3.50(L) 4.58 - 5.54 x10(6)/mc L [facility] Hemoglobin 10.4(L) 13.7 - 16.5 g/dL [facility] Hematocrit 30.2(L) 40.5 - 48.5 % [facility] Comment: This result has been called to ALONDRA PAGAN by Eddie López on 02 17 2024 at 1226, and has been read back. Mean Cell Volume 86.3 82.9 - 93.1 fL [facility] Mean Cell Hemoglobin 29.7 27.5 - 32.1 pg [facility] Mean Cell Hemoglobin Concentration 34.4 32.0 - 35.7 g/dL [facility] Platelet 118(L) 145 - 357 x10(3)/mc L [facility] RDW Standard Deviation 40.2 36.0 - 45.0 fL [facility] RDW coefficient of variation 12.8 11.4 - 13.8 % [facility] Mean Platelet Volume 9.5 7.6 - 12.9 fL [facility] NRBC% auto 0.0 % [facility] NRBC Absolute 0.000 0.000 - 0.000 x10(3)/mc L [facility] Blood 02/17/2024 12:1 0 PM EDT 02/17/2024 12:19 PM EDT Narrative Resulting Agency Comment Spec In Lab Tara York MD HEMATOLOGY ORDERABLE S [facility] [place] [address] * (ABNORMAL) BLOOD GAS 2 ARTERIAL (02/17/2024 11:43 AM EDT) pH, Arterial 7.38 7.35 - 7.45 [facility] PCO2, Arterial 40 35 - 45 mmHg [facility] PO2, Arterial 304(H) 85 - 104 mmHg [facility] Bicarbonate, Arterial 23.2 20.0 - 26.0 mmol/L [facility] Base Excess, Arterial -1.9 -3.0 - 3.0 mmol/L [facility] Hgb Blood Gas 11.1(L) 13.7 - 16.5 g/dL [facility] Oxyhemoglobin, Arterial 98.6(H) 94.0 - 97.0 % [facility] Carboxyhemoglob in, Arterial 0.3 % [facility] Comment: Nonsmokers: 0.5-1.5% COHB Smokers: Variable, but usually less than 10% Toxic: 20-30% COHB Lethal: Greater than 60% COHB Methemoglobin, Arterial 0.3 <=1.5 % [facility] Na Whole Blood 133(L) 135 - 145 mmol/L [facility] K Whole Blood 6.2(Critic al) 3.5 - 5.0 mmol/L [facility] Comment: Noted by fretted string instrument repairer. Please note: Patients with WBC >100,000 may have falsely elevated Potassium levels. Contact the Clinical Chemistry Laboratory if there are any questions. ICa Whole Blood 0.97(L) 1.15 - 1.33 mmol/L [facility] Comment: Note: ??Total bilirubin higher than 20 mg/dL may lead to falsely low ionized calcium. CL Whole Blood 104 98 - 107 mmol/L [facility] Gluc Whole Bld 128 65 - 199 mg/dL [facility] Comment:Diabetes: >=200 mg/d L plus symptoms. Lactate WB 1.1 0.5 - 2.2 mmol/L [facility] Blood 02/17/2024 11:4 3 AM EDT 02/17/2024 11:43 AM EDT Hayder Graham MD POINT OF CARE TEST ORDERABLES [facility] [place] [address] * (ABNORMAL) BLOOD GAS 2 ARTERIAL (02/17/2024 11:08 AM EDT) pH, Arterial 7.38 7.35 - 7.45 [facility] PCO2, Arterial 38 35 - 45 mmHg [facility] PO2, Arterial 334(H) 85 - 104 mmHg [facility] Bicarbonate, Arterial 22.0 20.0 - 26.0 mmol/L [facility] Base Excess, Arterial -3.2(L) -3.0 - 3.0 mmol/L [facility] Hgb Blood Gas 10.8(L) 13.7 - 16.5 g/dL [facility] Oxyhemoglobin, Arterial 98.7(H) 94.0 - 97.0 % [facility] Carboxyhemoglob in, Arterial 0.3 % [facility] Comment: Nonsmokers: 0.5-1.5% COHB Smokers: Variable, but usually less than 10% Toxic: 20-30% COHB Lethal: Greater than 60% COHB Methemoglobin, Arterial 0.3 <=1.5 % [facility] Na Whole Blood 131(L) 135 - 145 mmol/L [facility] K Whole Blood 6.4(Critic al) 3.5 - 5.0 mmol/L [facility] Comment: Noted by fretted string instrument repairer. Please note: Patients with WBC >100,000 may have falsely elevated Potassium levels. Contact the Clinical Chemistry Laboratory if there are any questions. ICa Whole Blood 0.98(L) 1.15 - 1.33 mmol/L [facility] Comment: Note: ??Total bilirubin higher than 20 mg/dL may lead to falsely low ionized calcium. CL Whole Blood 104 98 - 107 mmol/L [facility] Gluc Whole Bld 127 65 - 199 mg/dL [facility] Comment:Diabetes: >=200 mg/d L plus symptoms. Lactate WB 1.0 0.5 - 2.2 mmol/L [facility] Blood 02/17/2024 11:0 8 AM EDT 02/17/2024 11:08 AM EDT Hayder Graham MD POINT OF CARE TEST ORDERABLES Performing Organization Address [facility]/ZIP Co de Phone Number [facility] [place] [address] * (ABNORMAL) Hemoglobin and Hematocrit, blood (02/17/2024 11:04 AM EDT) Pathologist [facility] Hemoglobin 9.6(L) 13.7 - 16.5 g/dL [facility] Hematocrit 28.0(L) 40.5 - 48.5 % [facility] Comment: This result has been called to ALONDRA PAGAN by Eddie López on 02 17 2024 at 1120, and has been read back. Blood 02/17/2024 11:0 4 AM EDT 02/17/2024 11:12 AM EDT Narrative Resulting Agency Comment Spec In Lab Hayder Graham MD HEMATOLOGY ORDERABL ES Performing Organization Address City/[facility]/ZIP Co de Phone Number [facility] [place] [address] * (ABNORMAL) Platelet count (02/17/2024 11:04 AM EDT) Pathologist [facility] Platelet 106(L) 145 - 357 x10(3)/mc L [facility] Immature Plt % 1.6 0.0 - 7.4 % [facility] Comment: Limitation of the Immature Platelet Fraction (IPF)-May be less reliable when the platelet count is less than 31o041/uL due to statistical imprecision. The IPF value [...] in a decreased state of production. References: [employer] The Clinical Value of the Immature Platelet Fraction (IPF) in Cell Recovery Document Number [id number] 03/2011 [employer] The Role of the Immature Platelet Fraction (IPF) in the Differential Diagnosis of Thrombocytopenia, Document [id number] V002/15/14 P014 Blood 02/17/2024 11:0 4 AM EDT 02/17/2024 11:12 AM EDT Narrative Resulting Agency Comment Spec In Lab Hayder Graham MD HEMATOLOGY ORDERABL ES Performing Organization Address City/State/[facility] Co de Phone Number [facility] [place] [address] * (ABNORMAL) Fibrinogen (02/17/2024 11:04 AM EDT) Fibrinogen 149(L) 200 - 393 mg/dL [facility] Comment: OR Result called by ?? SALVLT OR Results read back by: ? Alondra Pagan at 2024-02-17 11:30:47 A fibrinogen level >100 mg/dL is adequate for hemostasis in most patients without underlying bleeding disorders. Blood 02/17/2024 11:0 4 AM EDT 02/17/2024 11:12 AM EDT Narrative Resulting Agency Comment Spec In Lab Hayder Graham MD HEMATOLOGY ORDERABL ES [facility] [place] [address] * (ABNORMAL) BLOOD GAS 2 ARTERIAL (02/17/2024 10:41 AM EDT) pH, Arterial 7.37 7.35 - 7.45 [facility] PCO2, Arterial 44 35 - 45 mmHg [facility] PO2, Arterial 335(H) 85 - 104 mmHg [facility] Bicarbonate, Arterial 24.9 20.0 - 26.0 mmol/L [facility] Base Excess, Arterial -0.4 -3.0 - 3.0 mmol/L [facility] Hgb Blood Gas 11.5(L) 13.7 - 16.5 g/dL [facility] Oxyhemoglobin, Arterial 98.9(H) 94.0 - 97.0 % [facility] Carboxyhemoglob in, Arterial 0.1 % [facility] Comment: Nonsmokers: 0.5-1.5% COHB Smokers: Variable, but usually less than 10% Toxic: 20-30% COHB Lethal: Greater than 60% COHB Methemoglobin, Arterial 0.3 <=1.5 % [facility] Na Whole Blood 132(L) 135 - 145 mmol/L [facility] K Whole Blood 5.9(H) 3.5 - 5.0 mmol/L [facility] Comment: Please note: Patients with WBC >100,000 may have falsely elevated Potassium levels. Contact the Clinical Chemistry Laboratory if there are any questions. ICa Whole Blood 1.02(L) 1.15 - 1.33 mmol/L [facility] Comment: Note: ??Total bilirubin higher than 20 mg/dL may lead to falsely low ionized calcium. CL Whole Blood 104 98 - 107 mmol/L [facility] Gluc Whole Bld 129 65 - 199 mg/dL [facility] Comment:Diabetes: >=200 mg/d L plus symptoms. Lactate WB 1.1 0.5 - 2.2 mmol/L [facility] Blood 02/17/2024 10:4 1 AM EDT 02/17/2024 10:41 AM EDT Hayder Graham MD POINT OF CARE TEST ORDERABLES [facility] [place] [address] * (ABNORMAL) BLOOD GAS 2 ARTERIAL (02/17/2024 10:06 AM EDT) pH, Arterial 7.38 7.35 - 7.45 [facility] PCO2, Arterial 42 35 - 45 mmHg [facility] PO2, Arterial 329(H) 85 - 104 mmHg [facility] Bicarbonate, Arterial 24.7 20.0 - 26.0 mmol/L [facility] Base Excess, Arterial -0.3 -3.0 - 3.0 mmol/L [facility] Hgb Blood Gas 11.0(L) 13.7 - 16.5 g/dL [facility] Oxyhemoglobin, Arterial 99.0(H) 94.0 - 97.0 % [facility] Carboxyhemoglob in, Arterial 0.3 % [facility] Comment: Nonsmokers: 0.5-1.5% COHB Smokers: Variable, but usually less than 10% Toxic: 20-30% COHB Lethal: Greater than 60% COHB Methemoglobin, Arterial 0.3 <=1.5 % [facility] Na Whole Blood 132(L) 135 - 145 mmol/L [facility] K Whole Blood 6.0(H) 3.5 - 5.0 mmol/L [facility] Comment: Please note: Patients with WBC >100,000 may have falsely elevated Potassium levels. Contact the Clinical Chemistry Laboratory if there are any questions. ICa Whole Blood 0.97(L) 1.15 - 1.33 mmol/L [facility] Comment: Note: ??Total bilirubin higher than 20 mg/dL may lead to falsely low ionized calcium. CL Whole Blood 102 98 - 107 mmol/L [facility] Gluc Whole Bld 123 65 - 199 mg/dL [facility] Comment:Diabetes: >=200 mg/d L plus symptoms. Lactate WB 1.1 0.5 - 2.2 mmol/L [facility] Blood 02/17/2024 10:0 6 AM EDT 02/17/2024 10:06 AM EDT Hayder Graham MD POINT OF CARE TEST ORDERABLES [facility] [place] [address] * Surgical Pathology Report (02/17/2024 10:01 AM EDT) Final Diagnosis [id number] ? Location: [facility]; [facility]; The signing pathologist has (i) examined the relevant preparation(s) for the specimen(s) and (ii) rendered or confirmed the diagnosis(es). . ?Surgical Pathology DIAGNOSIS Aortic valve leaflets, excision: Valve leaflets with myxoid degeneration, nodular fibrosis and dystrophic calcifications. Electronically signed by: ?Lindsay FERNANDEZ, Livier Gonzalez Verified: ??02/24/2024 13:49 ??Pathologist Performed at: ??-[facility] Dept. of Pathology, [place] [address] Silverware Cleaner: Job Brewer MD, FCAP, ??CLIA Certificate: [id number] SPECIMEN(S) SUBMITTED A - Aortic Valve Leaflets, [...] Sections Processing Blocks submitted for decalcification: A1. Histology Specialist sections in 1 cassette labeled A1. ??ajw 02/24/2024 1:49 PM EDT [facility] AORTIC STRUCTURE / Unknown 02/17/2024 10:01 AM EDT 02/17/2024 10:01 AM EDT Hayder Graham MD PATHOLOGY/CYTOLOGY ORDERABLES Performing Organization Address City/[facility]/ZIP Co de Phone Number [facility] [place] [address] * Specimen to Pathology (02/17/2024 10:01 AM EDT) AP Specimen 02/17/2024 10:0 1 AM EDT 02/17/2024 10:01 AM EDT Narrative [facility] - 02/17/2024 10:01 AM EDT Specimen requisition ordered. ??Separate Pathology report to follow Hayder Graham MD PATHOLOGY/CYTOLOGY ORDERABLES Performing Organization Address City/[facility]/ZIP Co de Phone Number [facility] [place] [address] * (ABNORMAL) BLOOD GAS 2 ARTERIAL (02/17/2024 9:35 AM EDT) pH, Arterial 7.33(L) 7.35 - 7.45 [facility] PCO2, Arterial 35 35 - 45 mmHg [facility] PO2, Arterial 318(H) 85 - 104 mmHg [facility] Bicarbonate, Arterial 17.9(L) 20.0 - 26.0 mmol/L [facility] Base Excess, Arterial -8.0(L) -3.0 - 3.0 mmol/L [facility] Hgb Blood Gas 11.0(L) 13.7 - 16.5 g/dL [facility] Oxyhemoglobin, Arterial 98.8(H) 94.0 - 97.0 % [facility] Carboxyhemoglob in, Arterial 0.3 % [facility] Comment: Nonsmokers: 0.5-1.5% COHB Smokers: Variable, but usually less than 10% Toxic: 20-30% COHB Lethal: Greater than 60% COHB Methemoglobin, Arterial 0.3 <=1.5 % [facility] Na Whole Blood 131(L) 135 - 145 mmol/L [facility] K Whole Blood 5.8(H) 3.5 - 5.0 mmol/L [facility] Comment: Please note: Patients with WBC >100,000 may have falsely elevated Potassium levels. Contact the Clinical Chemistry Laboratory if there are any questions. ICa Whole Blood 0.98(L) 1.15 - 1.33 mmol/L [facility] Comment: Note: ??Total bilirubin higher than 20 mg/dL may lead to falsely low ionized calcium. CL Whole Blood 101 98 - 107 mmol/L [facility] Gluc Whole Bld 122 65 - 199 mg/dL [facility] Comment:Diabetes: >=200 mg/d L plus symptoms. Lactate WB 0.8 0.5 - 2.2 mmol/L [facility] Blood 02/17/2024 9:35 AM EDT 02/17/2024 9:35 AM EDT Hayder Graham MD POINT OF CARE TEST ORDERABLES [facility] [place] [address] * (ABNORMAL) BLOOD GAS 2 VENOUS (02/17/2024 9:34 AM EDT) pH, Venous 7.22(Criti marquez) 7.32 - 7.42 [facility] Comment:Noted by fretted string instrument repairer. PCO2, Venous 43 41 - 51 mmHg [facility] Comment:Noted by fretted string instrument repairer. PO2, Venous 57(H) 25 - 40 mmHg [facility] Comment:Noted by fretted string instrument repairer. Bicarbonate, Venous 17.1 mmol/L [facility] Comment:Noted by fretted string instrument repairer. Base Excess, Venous -10.6 mmol/L [facility] Comment:Noted by fretted string instrument repairer. Hgb Blood Gas 11.2(L) 13.7 - 16.5 g/dL [facility] Comment:Noted by fretted string instrument repairer. Oxyhemoglobin, Venous 86.5 % [facility] Comment:Noted by fretted string instrument repairer. Carboxyhemoglob in, Venous 0.3 % [facility] Comment: Noted by fretted string instrument repairer. Nonsmokers: 0.5-1.5% COHB Smokers: Variable, but usually less than 10% Toxic: 20-30% COHB Lethal: Greater than 60% COHB Methemoglobin, Venous 0.0 <=1.5 % [facility] Comment:Noted by fretted string instrument repairer. Na Whole Blood 156(H) 135 - 145 mmol/L [facility] Comment:Noted by fretted string instrument repairer. K Whole Blood 5.5(H) 3.5 - 5.0 mmol/L [facility] Comment: Noted by fretted string instrument repairer. Please note: Patients with WBC >100,000 may have falsely elevated Potassium levels. Contact the Clinical Chemistry Laboratory if there are any questions. ICa Whole Blood 1.03(L) 1.15 - 1.33 mmol/L [facility] Comment: Noted by fretted string instrument repairer. Note: ??Total bilirubin higher than 20 mg/dL may lead to falsely low ionized calcium. CL Whole Blood 100 98 - 107 mmol/L [facility] Comment:Noted by fretted string instrument repairer. Gluc Whole Bld 132 65 - 199 mg/dL [facility] Comment: Noted by fretted string instrument repairer. Diabetes: >=200 mg/dL plus symptoms Lactate WB 1.0 0.5 - 2.2 mmol/L [facility] Comment:Noted by fretted string instrument repairer. Blood Gas Source Venous [facility] Blood 02/17/2024 9:34 AM EDT 02/17/2024 9:34 AM EDT Hayder Graham MD POINT OF CARE TEST ORDERABLES [facility] [place] [address] * (ABNORMAL) BLOOD GAS 2 ARTERIAL (02/17/2024 8:07 AM EDT) pH, Arterial 7.43 7.35 - 7.45 [facility] PCO2, Arterial 34(L) 35 - 45 mmHg [facility] PO2, Arterial 581(H) 85 - 104 mmHg [facility] Bicarbonate, Arterial 21.7 20.0 - 26.0 mmol/L [facility] Base Excess, Arterial -2.6 -3.0 - 3.0 mmol/L [facility] Hgb Blood Gas 14.5 13.7 - 16.5 g/dL [facility] Oxyhemoglobin, Arterial 99.0(H) 94.0 - 97.0 % [facility] Carboxyhemoglob in, Arterial 0.4 % [facility] Comment: Nonsmokers: 0.5-1.5% COHB Smokers: Variable, but usually less than 10% Toxic: 20-30% COHB Lethal: Greater than 60% COHB Methemoglobin, Arterial 0.3 <=1.5 % [facility] Na Whole Blood 139 135 - 145 mmol/L [facility] K Whole Blood 4.0 3.5 - 5.0 mmol/L [facility] Comment: Please note: Patients with WBC >100,000 may have falsely elevated Potassium levels. Contact the Clinical Chemistry Laboratory if there are any questions. ICa Whole Blood 1.09(L) 1.15 - 1.33 mmol/L [facility] Comment: Note: ??Total bilirubin higher than 20 mg/dL may lead to falsely low ionized calcium. CL Whole Blood 106 98 - 107 mmol/L [facility] Gluc Whole Bld 100 65 - 199 mg/dL [facility] Comment:Diabetes: >=200 mg/d L plus symptoms. Lactate WB 1.3 0.5 - 2.2 mmol/L [facility] Blood 02/17/2024 8:07 AM EDT 02/17/2024 8:07 AM EDT Hayder Graham MD POINT OF CARE TEST ORDERABLES Performing Organization Address [facility] Co de Phone Number [facility] [place] [address] * POCT Glucose (02/17/2024 6:38 AM EDT) Glucose, POC 98 65 - 199 mg/dL [facility] Comment: Supplemental ranges: <140 mg/dL before meals <180 mg/dL all other times of the day Blood 02/17/2024 6:38 AM EDT 02/17/2024 6:38 AM EDT Hayder Graham MD POINT OF CARE TEST ORDERABLES Performing Organization Address [facility] Co de Phone Number [facility] [place] [address] * Transesophageal Echo/OR (02/17/2024 6:33 AM EDT) [...] transesophageal echocardi[facility] and post-operative evaluation of cardiac function [...] 0930 (Not Given - Provider: Jazlyn Maldonado, OCLBY - Reason: Patient/family refused - Comment: d/c [...] Routine documented in this encounter Care Teams Junior Estimator Relationship Specialty Start Date End Date Aparna Jordan APRN PCP - General Family Medicine 10/21/23 05/26/24 documented as of this encounter
--- OUTSIDE RECORDS SUMMARY | 2024-06-22 08:19 | XMS_ITS | Encounter Summary ---
Author Organization [facility] [place] [address] Care Team Providers Care Manager Winter Name Role Phone Victor M Lafleur MD Primary Care Provider [phone] Encounter Details Date Type Department Care Team (Late st Contact Info) Description 09/26/2023 Abstract Cardiology at [address] [address] Karen Billy, RN Nonrheumatic aortic [...] PM EST Office Visit Cardiology at [address] [place] [address] Neftali Ernandez MD [facility] [place] [address] documented as of this encounter Visit Diagnoses Diagnosis Nonrheumatic aortic valve stenosis Aortic valve disorders Nevus of face Benign neoplasm of skin of other and unspecified parts of face documented in this encounter Care Teams Manager Winter Relationship Specialty Start Date End Date Victor M Lafleur MD PCP - General 10/02/13 10/20/23 documented as of this encounter
--- OUTSIDE RECORDS SUMMARY | 2024-06-22 08:19 | XMS_ITS | Encounter Summary ---
Author Organization [facility] [place] [address] Care Team Providers Care Supervisor Steel Division Name Role Phone Vanessa Christian APRN Primary Care Provider [phone] Encounter Details Date Type Department Care Team [...] PM EST Office Visit Cardiology at [address] [place] [id number] Neftali Ernandez MD [facility] [place] [address] documented as of this encounter Visit Diagnoses Not on filedocumented in this encounter Care Teams Supervisor [employer] Relationship Specialty Start Date End Date Vanessa Christian APRN PCP - General Family Medicine 10/21/23 05/26/24 documented as of this encounter
--- OUTSIDE RECORDS SUMMARY | 2024-06-22 08:19 | XMS_ITS | Encounter Summary ---
Author Organization [facility] Address [facility] [place] [address] Care Team Providers Care Tool Liaison Name Role Phone Vanessa Christian MAURI Primary Care Provider [phone] Encounter Details Date Type Department Care Team (Latest Contact Info) Description 01/09/2024 3:02 PM EDT - 01/09/2024 11:59 PM EDT Hospital Encounter XRay at [address] [place] [address] Zak Farmer MD [facility] [place] [address] Nonrheumatic aortic valve stenosis Discharge Disposition: Home Social History Tobacco Use Types Packs/Day Years Used Date Smoking Tobacco: Former Cigarettes Smokeless Tobacco: Never Comments:Quit 15 + years ago Alcohol Use Standard Drinks/Week Comments Yes 0 (1 standard drink = 0.6 oz pur e alcohol) rare [facility] Inpatient Questions Answer Date Recorded Prevent [...] PM EST Office Visit Cardiology at [address] [place] [address] Neftali Ernandez MD [facility] [place] [address] documented as of this encounter Procedures Procedure [...] who have questions please contact the health administrator health care facility that requested your imaging first. ? Narrative [...] patients who have questions please contactthe health administrator health care facility that requested your imaging first. Zak Farmer MD IMG DX ORDERABLES documented in this encounter Visit Diagnoses Diagnosis Nonrheumatic aortic valve stenosis Aortic valve disorders documented in this encounter Care Teams Tool Liaison Relationship Specialty Start Date End Date Vanessa Christian APRN PCP - General Family Medicine 10/21/23 05/26/24 documented as of this encounter
--- OUTSIDE RECORDS SUMMARY | 2024-06-22 08:19 | XMS_ITS | Encounter Summary ---
Author Organization [facility] [place] [address] Care Team Providers Care Director Of Health Care Marketing Name Role Phone Vanessa Christian MAURI Primary Care Provider [phone] Encounter Details Date Type Department Care Team (Latest Contact Info) Description 01/09/2024 3:00 PM EDT Laboratory [place] [phone] Nonrheumatic aortic valve stenosis Social History Tobacco Use Types Packs/Day Years Used Date Smoking Tobacco: Former Cigarettes Smokeless Tobacco: Never Comments:Quit 15 + years ago Alcohol Use Standard Drinks/Week Comments Yes 0 (1 standard drink = 0.6 oz pur e alcohol) rare [facility] Inpatient Questions Answer Date Recorded Prevent [...] PM EST Office Visit Cardiology at [address] [phone] Neftali Ernandez MD [facility] [place] [address] documented as of this encounter Procedures Procedure Name Priority Date/Time Associated Diagnosis Comments ABORH RECHECK STATUS Routine 01/09/2024 2:58 PM EDT HEMOGRAM Routine 01/09/2024 2:58 PM EDT Nonrheumatic aortic valve stenosis DIFFERENTIAL, AUTOMATED Routine 01/09/2024 2:58 PM EDT Nonrheumatic aortic valve stenosis TYPE AND SCREEN, SDP (FUTURE SURGERY, [facility] SAME DAY PROGRAM ONLY) Routine [...] PM EDT) ABORH Recheck Order Order Placed [facility] ABORH Type Recheck Completed [facility] Blood 01/09/2024 2:58 PM EDT 01/09/2024 3:08 PM EDT Narrative Resulting Agency Comment Spec In Lab Zak Farmer MD BLOOD BANK LAB CECILIO ALEMAN [facility] [place] [address] * Differential, Automated (01/09/2024 2:58 PM EDT) Neutrophil % 70.5 % [facility] Neutrophil Absolute 4.34 1.70 - 6.10 x10(3)/[facility] LABORATORY Lymph % 18.9 % [facility] Lymphocytes Abs 1.2 0.9 - 3.2 x10(3)/[facility] LABOR[facility]ORY Monocyte % 8.0 % [facility] Monocyte Abs 0.5 0.3 - 0.9 x10(3)/[facility] LABORATORY Eos % 1.6 % [facility] Eosinophils Abs 0.1 0.0 - 0.4 x10(3)/[facility] LABOR[facility]ORY Basophil % 0.5 % [facility] Baso Absolute 0.0 0.0 - 0.1 x10(3)/[facility] LABORATORY Immature Gran % 0.50 % [facility] Comment: Immature granulocytes(IG's)percentage and absolute count will include metamyelocytes, myelocytes, and promyelocytes. Blood smears from CBCs yielding IG's will be scanned manually for concordance. If this scan disagrees with the automated IG or if promyelocytes are noted, a manual differential will be performed. Immature Gran Absolute 0.03 0.00 - 0.04 x10(3)/[facility] LABORATORY Blood 01/09/2024 2:58 PM EDT 01/09/2024 3:03 PM EDT Narrative Resulting Agency Comment Spec In Lab Zak Farmer MD HEMATOLOGY ORDERABL ES [facility] [place] [address] * Hemogram (01/09/2024 2:58 PM EDT) White Blood Cell 6.2 4.0 - 9.5 x10(3)/[facility] LABORATORY Red Blood Cell 5.53 4.58 - 5.54 x10(6)/[facility]ORATORY Hemoglobin 16.1 13.7 - 16.5 g/dL [facility] Hematocrit 46.9 40.5 - 48.5 % [facility] Mean Cell Volume 84.8 82.9 - 93.1 fL [facility] Mean Cell Hemoglobin 29.1 27.5 - 32.1 pg [facility] Mean Cell Hemoglobin Concentration 34.3 32.0 - 35.7 g/dL [facility] Platelet 187 145 - 357 x10(3)/[facility] LABORATORY RDW Standard Deviation 39.2 36.0 - 45.0 fL [facility] RDW coefficient of variation 12.6 11.4 - 13.8 % [facility] Mean Platelet Volume 9.5 7.6 - 12.9 fL [facility] NRBC% auto 0.0 % [facility] NRBC Absolute 0.000 0.000 - 0.000 x10(3)/[facility] Blood 01/09/2024 2:58 PM EDT 01/09/2024 3:03 PM EDT Narrative Resulting Agency Comment Spec In Lab Zak Farmer MD HEMATOLOGY ORDERABL ES [facility] [place] [address] * Basic Metabolic Panel (non-fasting) (01/09/2024 2:58 [...] MD CHEMISTRY ORDERABLE S [facility] [place] [address] * Hepatic Function Panel (01/09/2024 2:58 PM [...] Performing Organization Address [facility] Co de Phone Number [facility] [place] [address] * Prothrombin Time (01/09/2024 2:58 PM EDT) [...] ES Performing Organization Address [facility] Co de Phone Number [facility] [place] [address] * Type and Screen Future Surgery, [facility] SAME DAY PROGRAM ONLY) (01/09/2024 [...] BANK LAB ORDE RABLES Performing Organization Address City/[facility]/ZIP [place] [address] documented in this encounter Visit Diagnoses Diagnosis Nonrheumatic aortic valve stenosis Aortic valve disorders documented in this encounter Care Teams Director Of Health Care Marketing Relationship Specialty Start Date End Date Vanessa Christian APRN PCP - General Family Medicine 10/21/23 05/26/24 documented as of this encounter
--- OUTSIDE RECORDS SUMMARY | 2024-06-22 08:19 | XMS_ITS | Encounter Summary ---
[place] [address] Care Team Providers Care Customs Entry Writer Name Role Phone Victor M Lafleur MD Primary Care Provider [phone] Reason for Visit * Reason Onset Date Comments Referral 09/20/2023 Encounter Details Date Type Department Care Team (Late st Contact Info) Description 09/20/2023 Telephone Cardiology at [address] [address] Karen Billy, motor vehicle light assembler Social History Tobacco Use Types Packs/Day Years [...] PM EST Office Visit Cardiology at [address] [place] [address] Neftali Ernandez MD [facility] [place] [address] documented as of this encounter Visit Diagnoses Not on filedocumented in this encounter Care Teams Customs Entry Writer Relationship Specialty Start Date End Date Victor M Lafleur MD PCP - General 10/02/13 10/20/23 documented as of this encounter
--- OUTSIDE RECORDS SUMMARY | 2024-06-22 08:19 | XMS_ITS | Encounter Summary ---
Author Organization [facility] Address [facility] [place] [address] Care Team Providers Care Associate Publisher Name Role Phone Vanessa Christian APRN Primary Care Provider [phone] Encounter Details Date Type Department Care Team [...] PM EST Office Visit Cardiology at [address] [place] [address] Neftali Ernandez MD [facility] [place] [address] documented as of this encounter Visit Diagnoses Not on filedocumented in this encounter Care Teams Associate Publisher Relationship Specialty Start Date End Date Vanessa Christian APRN PCP - General Family Medicine 10/21/23 05/26/24 documented as of this encounter
--- OUTSIDE RECORDS SUMMARY | 2024-06-22 08:19 | XMS_ITS | Encounter Summary ---
Author Organization [facility] [place] [address] Care Team Providers Care Geospatial Engineer Name Role Phone Vanessa Christian Lane DOTSON Primary Care Provider [phone] Reason for Referral * Diagnostic Test (Routine) - Closed Specialty Diagnoses / Procedures Referred By Contac t Referred To Contact Radiology Diagnoses Nonrheumatic aortic valve stenosis Procedures CT Chest wo Contrast (Generic) Louisa Cho PA [facility] [place] [address] [facility] [place] [address] Referral ID Status Reason Start Date Expiration Date V isits Requested Visits Authorized [id number] Closed Specialty Service Requested 01/10/2024 07/11/2025 1 1 Reason for Visit * Diagnostic Test (Routine) - Closed Specialty Diagnoses / Procedures Referred By Contac t Referred To Contact Radiology Diagnoses Nonrheumatic aortic valve stenosis Procedures CT Chest wo Contrast (Generic) Louisa Cho PA [facility] [place] [address] [facility] [place] [address] Referral ID Status Reason Start Date Expiration Date V isits Requested Visits Authorized [id number] Closed Specialty Service Requested 01/10/2024 07/11/2025 1 1 Encounter Details Date Type Department Care Team (Latest Contact Info) Description 02/03/2024 7:36 AM EDT - 02/03/2024 8:05 AM EDT Hospital Encounter CT Scan at [facility] [place] [address] Zak Farmer MD [facility] [place] [address] Nonrheumatic aortic valve stenosis Discharge Disposition: Home Social History Tobacco Use Types Packs/Day Years Used Date Smoking Tobacco: Former Cigarettes Smokeless Tobacco: Never Comments:Quit 15 + years ago Alcohol Use Standard Drinks/Week Comments Yes 0 (1 standard drink = 0.6 oz pur e alcohol) rare [facility] Inpatient Questions Answer Date Recorded Does [...] PM EST Office Visit Cardiology at [address] [place] [address] Neftali Ernandez MD [facility] [place] [address] documented as of this encounter Procedures Procedure Name Priority Date/Time Associated Diagnosis Comments CT CHEST WO CONTRAST (GENERIC) Routine 02/03/2024 7:44 AM EDT Nonrheumatic aortic valve stenosis documented in this encounter Results * CT Chest wo Contrast (Generic) (02/03/2024 7:44 AM EDT) [place] WORKSTATION ID [id number] DH RAD Anatomical Region Laterality Modality Chest [...] questions please contact the health patient care technician instructor that requested your imaging first. ? Electronically signed by: Rogerio Wright MD, [facility] ([phone]), at 02/03/2024 10:00 AM Narrative 02/03/2024 10:00 [...] nodule along the minor fissure (series 302 [id number]) and a 8 mm right lower lobe [...] have questions please contactthe health patient care technician instructor that requested your imaging first. Electronically signed by: Rogerio Wright MD, [facility]([phone]), at 02/03/2024 10:00 AM Zak Farmer MD IMG CT ORDERABLES documented in this encounter Visit Diagnoses Diagnosis Nonrheumatic aortic valve stenosis Aortic valve disorders documented in this encounter Care Teams Geospatial Engineer Relationship Specialty Start Date End Date Vanessa Christian APRN PCP - General Family Medicine 10/21/23 05/26/24 documented as of this encounter
--- OUTSIDE RECORDS SUMMARY | 2024-06-22 08:19 | XMS_ITS | Encounter Summary ---
Author Organization [facility] [place] [address] Care Team Providers Care Gusset Maker Name Role Phone Vanessa Christian MAURI Primary Care Provider [phone] Reason for Visit * Auth/Cert (Routine) Specialty [...] Dickinson MD [facility] [place] [address] [facility] Referral ID Status Reason Start Date Expiration Date Visits Re quested Visits Authorized [id number] 1 1 Encounter Details Date Type Department Care Team (Latest Contact Info) Description 02/03/2024 8:06 AM EDT - 02/03/2024 2:54 PM EDT Hospital En[place] [address] Rima Dickinson MD [facility] [place] [address] Screening for cardiovascular condition; Aortic valve stenosis, [...] lbs Follow-up Visits Follow up with your mine equipment design engineer in 2-4 weeks Access Site 'Black and Blue' and tenderness is expected during the first week Call if you noted a mass (lump) greater than the size of a ellis Call Office with any Questions and if you have any of the following Clarence Lane M.D Interventional Sugar Cane Planter Turkey Egg Gatherer #: [phone] * Attachments The following attachments cannot be sent through Care Everywhere. * CAD (Coronary Artery Disease): General Info (Niuean) * Coronary Angiogram: Post-op (Niuean) documented in this encounter Medications at Time [...] Lane MD - 02/03/2024 11:48 AM EDT [facility] Interventional Cardiology Adult Pre-Procedure H&P Update: Cardiac Catheterization Karlos Anthony [id number] 1960 Chief Complaint: Aortic stenosis HPI: Mr. [...] is inthe chart Clarence Lane MD Interventional Sugar Cane Planter 02/03/24 11:48 AM documented in this encounter Miscellaneous Notes * Brief Op Note - Clarence Lane MD - 02/03/2024 12:51 PM EDT Preliminary Cardiac Catheterization Procedure Note: Patient Name: Karlos Anthony : [id number] MR#: [id number] Case Date: 02/03/2024 Turkey Egg Gatherer: Surgeon(s) and Role: * Saira Lua MD [...] PM EST Office Visit Cardiology at [address] [address] Neftali Ernandez MD [facility] [place] [address] Scheduled Orders Name Type Priority Associated Diagnoses [...] Modality Other Narrative 02/12/2024 3:47 PM EDT ?[facility] ? Cardiac Catheterization/Intervention Report ? Patient Name: Patenaude, Karlos ? Procedure Date: 02/03/2024 ? A #: [id number] ? Primary Physician: Saira Lua ? Case #: [id number] ? File Name: [id number] ? Catheterization Order Number: [id number] ? [facility] ? Final Report [place], [place] ? Patient Name: ? Karlos Patenaude ? ID#: ?[id number] ? : ?1960 ? Procedure Date: ? [...] Procedure Note Saira Lua MD - 02/12/2024 [facility] Cardiac Catheterization/Intervention Report Patient Name: Karlos Anthony Procedure Date: 02/03/2024 A #: [id number] Primary Physician: Saira Lua Case #: [id number] File Name: [id number] Catheterization Order Number: [id number] [facility] FinalReport [place], [place] Patient Name: Karlos Anthony ID#:[id number] :1960 Procedure Date: February 03, 2024 Case [...] as ASA Class III. The [facility] clinical frailty scale is 3: [...] (Bezet) 372 ms MUSE SYSTEM Calculated [address] 59 degrees MUSE SYSTEM Calculated R [address] 34 degrees MUSE SYSTEM Calculated T [address] 63 degrees MUSE SYSTEM INTERPRETATION Sinus bradycardia [...] MD) documented in this encounter Care Teams Gusset Maker Relationship Specialty Start Date End Date Vanessa Christian APRN PCP - General Family Medicine 10/21/23 05/26/24 documented as of this encounter
--- OUTSIDE RECORDS SUMMARY | 2024-06-22 08:19 | XMS_ITS | Encounter Summary ---
Author Organization [facility] [place] [address] Care Team Providers Care University Counselor Name Role Phone Vanessa Christian MAURI Primary Care Provider [phone] Reason for Visit * Auth/Cert (Routine) Specialty [...] MD [facility] [place] [address] [facility] Referral ID Status Reason Start Date Expiration Date Visits Re quested Visits Authorized [id number] 1 1 Encounter Details Date Type Department Care Team (Late st Contact Info) Description 02/03/2024 10:00 AM EDT - 02/03/2024 11:00 AM EDT Surgery [place] [address] Saira Lua MD [facility] [place] [address] CARDIAC CATHETERIZATION Social History Tobacco Use Types [...] lbs Follow-up Visits 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 * CAD (Coronary Artery Disease): General Info (South Korean) * Coronary Angiogram: Post-op ([place] Korean) documented in this encounter Medications at Time [...] - 02/03/2024 11:48 AM EDT [facility] Interventional Cardiology Adult Pre-Procedure H&P Update: Cardiac Catheterization Karlos Anthony [id number] 1960 Chief Complaint: Aortic stenosis HPI: Mr. [...] is inthe chart Clarence Lane MD Interventional Equipment Maintenance Supervisor 02/03/24 11:48 AM documented in this encounter Miscellaneous Notes * Brief Op Note - Clarence Lane MD - 02/03/2024 12:51 PM EDT Preliminary Cardiac Catheterization Procedure Note: Patient Name: Karlos Anthony : [id number] MR#: [id number] Case Date: 02/03/2024 Electric Trucker: Surgeon(s) and Role: * Saira Lua MD [...] PM EST Office Visit Cardiology at [address] [address] Neftali Ernandez MD [facility] [place] [address] Scheduled Orders Name Type Priority Associated Diagnoses [...] Narrative 02/12/2024 3:47 PM EDT ?[facility] ? Cardiac Catheterization/Intervention Report ? Patient Name: Patenaude, Karlos ? Procedure Date: 02/03/2024 ? A #: [id number] ? Primary Physician: Saira Lua ? Case #: [id number] ? File Name: [id number] ? Catheterization Order Number: [id number] ? [facility] ? Final Report [place], [place] ? Patient Name: ? Karlos Patenaude ? ID#: ?[id number] ? : ?1960 ? Procedure Date: ? [...] Saira Lua MD - 02/12/2024 [facility] Cardiac Catheterization/Intervention Report Patient Name: Karlos Anthony Procedure Date: 02/03/2024 A #: [id number] Primary Physician: Saira Lua Case #: [id number] File Name: [id number] Catheterization Order Number: [id number] [facility] FinalReport [place], [place] Patient Name: Karlos Anthony ID#:[id number] :1960 Procedure Date: February 03, 2024 Case [...] (Bezet) 372 ms MUSE SYSTEM Calculated P [place] 59 degrees MUSE SYSTEM Calculated R [place] 34 degrees MUSE SYSTEM Calculated T [place] 63 degrees MUSE SYSTEM INTERPRETATION Sinus bradycardia [...] MD) documented in this encounter Care Teams University Counselor Relationship Specialty Start Date End Date Vanessa Christian APRN PCP - General Family Medicine 10/21/23 05/26/24 documented as of this encounter
--- OUTSIDE RECORDS SUMMARY | 2024-06-22 08:19 | XMS_ITS | Encounter Summary ---
Author Organization [facility] Address [facility] [place] [address] Care Team Providers Care Blind Teacher Name Role Phone Vanessa Christian DIAMOND MOUNTER Primary Care Provider [phone] Reason for Referral * Diagnostic Test (Routine) - Closed Specialty Diagnoses / Procedures Referred By Contac t Referred To Contact Radiology Diagnoses Nonrheumatic aortic valve stenosis Procedures CT Chest wo Contrast (Generic) Louisa Reid PA [facility] [place] [address] [facility] [place] [address] Referral ID Status Reason Start Date Expiration Date V isits Requested Visits Authorized [id number] Closed Specialty Service Requested 01/10/2024 07/11/2025 1 1 Encounter Details Date Type Department Care Team (Late st Contact Info) Description 01/09/2024 Orders [place] [address] Zak Farmer MD [facility] [place] [address] Nonrheumatic aortic valve stenosis Social History Tobacco [...] PM EST Office Visit Cardiology at [address] [place] [address] Neftali Ernandez MD [facility] [place] [address] documented as of this encounter Results * CT Chest wo Contrast (Generic) (02/03/2024 7:44 AM EDT) WORKSTATION ID [id number] RAD Anatomical Region Laterality Modality Chest Computed [...] who have questions please contact the health post acute care nurse practitioner that requested your imaging first. ? Narrative [...] nodule along the minor fissure (series 302 [id number]) and a 8 mm right lower lobe [...] patients who have questions please contactthe health post acute care nurse practitioner that requested your imaging first. Zak Farmer MD IMG CT ORDERABLES documented in this encounter Visit Diagnoses Diagnosis Nonrheumatic aortic valve stenosis Aortic valve disorders Nonrheumatic aortic valve stenosis Aortic valve disorders documented in this encounter Care Teams Blind Teacher Relationship Specialty Start Date End Date Vanessa Christian APRN PCP - General Family Medicine 10/21/23 05/26/24 documented as of this encounter
--- OUTSIDE RECORDS SUMMARY | 2024-06-22 08:19 | XMS_ITS | Encounter Summary ---
Author Organization [facility] Address [facility] Ivana linareseileen [place] [id number] Care Team Providers Care News Video Editor Name Role Phone Vanessa Christian MAURI Primary Care Provider [phone] Reason for Referral * Consultation (Routine) - Closed Specialty Diagnoses / Procedures Referred By Contac t Referred To Contact Cardiac Surgery Diagnoses Nonrheumatic aortic valve stenosis significant - TAVR ( defers to Card Surg d/t age) Errol Loya MD [facility] [place] [address] Zak Farmer MD [facility] [place] [address] Referral ID Status Reason Start Date Expiration Date V isits Requested Visits Authorized [id number] Closed Consult, Test & Treat 10/21/2023 10/20/2024 1 1 Reason for Visit * Reason Comments Chest Pain Shortness of Breath Aortic Stenosis Encounter Details Date Type Department Care Team (Late st Contact Info) Description 10/21/2023 1:20 PM EST Office Visit Cardiology at [address] [address] Errol Loya MD [facility] [place] [address] Nonrheumatic aortic valve stenosis Social History Tobacco [...] List Diagnosis Aortic stenosis 12/2022 TTE ([facility]): VITA 0.8-0.9 cm2 (MG 28 mmHg, DOI 3.6 m/s, SVI 35 cc/m2). Trace regurgitation. Normal bi-v s/f, no other valve findings Gastroesophageal reflux Nevus of face Right restorationist Hypertension HLD (hyperlipidemia) MEDICATIONS: Current Outpatient Medications [...] will refer to [facility] [place] [facility] for further [place]. Logistics and preliminary review [...] will refer to T at [facility] for further evaluation. Logistics and preliminary review [...] PM EST Office Visit Cardiology at [address] [place] [address] Errol Loya MD [facility] [place] [address] Scheduled Referrals Name Type Priority Associated Diagnoses Order Schedule Amb Referral to Structural Heart Outpatient Referral Routine Nonrheumatic aortic valve stenosis Ordered: 10/21/2023 documented as of this encounter Visit Diagnoses Diagnosis Nonrheumatic aortic valve stenosis Aortic valve disorders documented in this encounter Care Teams News Video Editor Relationship Specialty Start Date End Date Vanessa Christian APRN PCP - General Family Medicine 10/21/23 05/26/24 documented as of this encounter
--- OUTSIDE RECORDS SUMMARY | 2024-06-22 08:19 | XMS_ITS | Encounter Summary ---
Author Organization [facility] [place] [address] Care Team Providers Care Manager Labor Delivery Name Role Phone Vanessa Christian APRN Primary Care Provider [phone] Encounter Details Date Type Department Care Team (Late st Contact Info) Description 10/21/2023 Abstract Cardiology at [address] [place] [address] Adam Mayes RN Social History Tobacco Use [...] PM EST Office Visit Cardiology at [address] [place] [address] Neftali Ernandez MD [facility] [place] [address] documented as of this encounter Visit Diagnoses Not on filedocumented in this encounter Care Teams Manager Labor Delivery Relationship Specialty Start Date End Date Vanessa Christian APRN PCP - General Family Medicine 10/21/23 05/26/24 documented as of this encounter
--- OUTSIDE RECORDS SUMMARY | 2024-06-22 08:19 | XMS_ITS | Encounter Summary ---
Author Organization [facility] Address [facility] [place] [address] Care Team Providers Care Barrel Filler Head Name Role Phone Vanessa Christian MAURI Primary Care Provider [phone] Reason for Visit * Consultation (Routine) - Closed Specialty Diagnoses / Procedures Referred By Contac t Referred To Contact Cardiac Surgery Diagnoses Nonrheumatic aortic valve stenosis significant - TAVR ( defers to Card Surg d/t age) Neftali Ernandez MD [facility] [address] Zak Farmer MD [facility] CARDIOTHORACIC [place] [address] Referral ID Status Reason Start Date Expiration Date V isits Requested Visits Authorized [id number] Closed Consult, Test & Treat 10/21/2023 10/20/2024 1 1 Encounter Details Date Type Department Care Team (Late st Contact Info) Description 01/09/2024 1:40 PM EDT Office Visit [place] [address] Zak Farmer MD [facility] CARDIOTHORACIC [place] [address] Nonrheumatic aortic valve stenosis Social [...] office. Best personal regards, Zak Farmer MD [phone] In aggregate 55 minutes were spent evaluating [...] PM EST Office Visit Cardiology at [address] [place] [phone] Neftali Ernandez MD [facility] [place] [address] documented as of this encounter Results * [...] who have questions please contact the health aged or disabled carer that requested your imaging first. ? Narrative [...] patients who have questions please contactthe health aged or disabled carer that requested your imaging first. Zak Farmer [...] CHEMISTRY ORDERABLE S [facility] [place] [address] * Hepatic Function Panel (01/09/2024 2:58 PM [...] CHEMISTRY ORDERABLE S Performing Organization Address [facility] Co de Phone Number [facility] [place] [address] * Prothrombin Time (01/09/2024 2:58 PM EDT) [facility] Prothrombin Time 10.6 9.4 - 12.5 [...] HEMATOLOGY ORDERABL ES Performing Organization Address [facility]/ZIP Co de Phone Number [facility] [place] [address] * Type and Screen Future Surgery, [facility] SAME DAY PROGRAM ONLY) (01/09/2024 2:58 PM EDT) ABORH Type O NEGATIVE [facility] Patient BB History Not Found [facility] Expires at 2359 on: 02-20-2024 [facility] Ab Screen Interp Negative [facility] Blood 01/09/2024 2:58 PM EDT 01/09/2024 2:58 PM EDT Narrative Resulting Agency Comment Spec In Lab Zak Farmer MD [facility] Organization Address City/State/ZIP Co de Phone Number [facility] [place] [address] documented in this encounter Visit Diagnoses Diagnosis Nonrheumatic aortic valve stenosis Aortic valve disorders Nonrheumatic aortic valve stenosis Aortic valve disorders documented in this encounter Care Teams Barrel Filler Head Relationship Specialty Start Date End Date Vanessa Chrisitan APRN PCP - General Family Medicine 10/21/23 05/26/24 documented as of this encounter
--- OUTSIDE RECORDS SUMMARY | 2024-06-22 08:19 | XMS_ITS | Encounter Summary ---
Author Organization [facility] [place] [address] Care Team Providers Care Pole Cutter Name Role Phone Vanessa Christian MAURI Primary Care Provider [phone] Encounter Details Date Type Department Care Team (Late st Contact Info) Description 01/10/2024 Orders Only [place] [phone] Lawson Napoles PA [facility] [place] [address] Screening for cardiovascular condition; Aortic valve stenosis, [...] PM EST Office Visit Cardiology at [address] [place] [phone] Neftali Ernandez MD [facility] [place] [address] documented as of this encounter Visit Diagnoses Diagnosis Screening for cardiovascular condition Screening for other and unspecified cardiovascular conditions Aortic valve stenosis, etiology of cardiac valve disease unspecified documented in this encounter Care Teams Pole Cutter Relationship Specialty Start Date End Date Vanessa Christian APRN PCP - General Family Medicine 10/21/23 05/26/24 documented as of this encounter
--- OUTSIDE RECORDS SUMMARY | 2024-06-22 08:19 | XMS_ITS | Encounter Summary ---
Author Organization [facility] [place] [address] Care Team Providers Care Inspector Eyeglass Frames Name Role Phone Vanessa Christian MAURI Primary Care Provider [phone] Reason for Visit * Auth/Cert (Routine) Specialty [...] ARTERIAL GRAFT (WRVU 7.93) Zak Farmer MD [facility] [place] [address] [facility] Referral ID Status Reason Start Date Expiration Date Visits Re quested Visits Authorized [id number] 1 1 Encounter Details Date Type Department Care Team (Late st Contact Info) Description 02/17/2024 7:35 AM EDT Anesthesia Event Main Operating Room [facility]ly [facility] [place] [phone] Roman York MD [facility] [place] [address] Anesthesia Record Procedure Summary Procedure Name Responsible [...] by Sadiq Woo RN PIV 02/17/24; 0715; brzm-usb-bcmisv catheter system; 18 gauge; cephalic vein (lateral [...] th e electric, gas, oil, or water Embrane threatened to shut off services in your [...] Procedure Summary Date: 02/17/24 Room / Location: [facility] OR [address] [place] [address] MAIN OR Anesthesia Start: 734 Anesthesia Stop: [...] shown include unfiled device data. Patient Location: [facility] Level of Consciousness: Sedated (Pharmacologic/Intentional) [...] 08/14/2023 ??? Nevus of face 09/26/2023 Right orthodox No past surgical history on file. Social [...] PM EST Office Visit Cardiology at [address] [place] [address] Neftali Ernandez MD [facility] [place] [address] documented as of this encounter [...] mg documented in this encounter Care Teams Inspector Eyeglass Frames Relationship Specialty Start Date End Date Vanessa Christian APRN PCP - General Family Medicine 10/21/23 05/26/24 documented as of this encounter
--- OUTSIDE RECORDS SUMMARY | 2024-06-22 08:19 | XMS_ITS | Encounter Summary ---
Author Organization [facility] Address [facility] [place] [address] Care Team Providers Care Sexton Helper Name Role Phone Vanessa Christian MAURI Primary Care Provider [phone] Encounter Details Date Type Department Care Team (Late st Contact Info) Description 02/14/2024 Orders [place] [phone] Zak Farmer MD [facility] [place] [address] Coronary artery disease, unspecified vessel or lesion type, unspecified whether angina present, unspecified whether [place] or transplanted heart (Primary Dx) Social History [...] PM EST Office Visit Cardiology at [address] [place] [phone] Neftali Ernandez MD [facility] CARDIOLOGY [place], [place] [phone] documented as of this encounter Results * EKG 12 Lead (03/12/2024 2:35 PM EDT) Ventricular rate 59 BPM MUSE SYSTEM Atrial Rate 59 BPM MUSE SYSTEM P-R Interval 190 ms MUSE SYSTEM QRS Duration 92 ms MUSE SYSTEM Q-T Interval 406 ms MUSE SYSTEM QTC Calculated (Bezet) 401 ms MUSE SYSTEM Calculated P [place] -12 degrees MUSE SYSTEM Calculated R [place] 24 degrees MUSE SYSTEM Calculated T [place] 74 degrees MUSE SYSTEM INTERPRETATION Sinus bradycardia T wave abnormality, consider anterior ischemia Abnormal ECG When compared with ECG of 17-FEB-2024 13:24, [place] interval has decreased T wave inversion now evident in Anterior leads Confirmed by Paul Guzman ([id number]) on 03/15/2024 8:36:23 AM MUSE SYSTEM 03/12/2024 2:35 PM EDT 03/15/2024 8:36 AM EDT Zak Farmer MD ECG ORDERABLES MUSE SYSTEM * XR Chest PA & Lateral (Generic) (03/12/2024 1:42 PM EDT) WORKSTATION ID [id number] RAD Anatomical Region Laterality Modality Chest N/A [...] have questions please contact the health manager wound care that requested your imaging first. ? Narrative 03/13/2024 8:28 AM EDT EXAMINATION: XR CHEST PA AND LATERAL (GENERIC) CLINICAL HISTORY: s/p cabg eval effusions I25.10, Atherosclerotic heart disease of [place] coronary artery without angina pectoris TECHNIQUE: PA [...] eval effusions I25.10, Atherosclerotic heart disease of [place] coronary artery withoutangina pectoris TECHNIQUE: PA and [...] who have questions please contactthe health manager wound care that requested your imaging first. Zak Farmer MD IMG DX ORDERABLES documented in this encounter Visit Diagnoses Diagnosis Coronary artery disease, unspecified vessel or lesion type, unspecified whether angina present, unspecified whether [place] or transplanted heart- Primary Coronary artery disease, unspecified vessel or lesion type, unspecified whether angina present, unspecified whether [place] or transplanted heart documented in this encounter Care Teams Sexton Helper Relationship Specialty Start Date End Date Vanessa Christian APRN PCP - General Family Medicine 10/21/23 05/26/24 documented as of this encounter
--- OUTSIDE RECORDS SUMMARY | 2024-06-22 08:20 | XMS_ITS | Data Portability ---
Author Organization [place] - [facility] Address [address] [place] [address] Care Team Providers Care Immunopathologist Name Role Phone APARNA JORDAN Primary Care Provider Assessment No assessment recorded. Plan of Treatment Reminders Order Date Submit Date Provider Last Modified By Organization Details Last Modified Time Details Appointments None recorded . Lab magnesiu m, serum or plasma 024 12/18/19 24 [email or web address] [facility] ([facility] ), [address] [place] [address] [place], [address], 4 14:25:25 BMP, serum or plasma 024 12/18/19 24 [email or web address] [facility] ([facility] ), [address] [place] [address] [place], [address], 4 14:25:24 Referral None recorded . Procedures None recorded . Surgeries None recorded . Imaging None recorded . Medication Orders None recorded . Patient TargetsNo targets recorded. Patient Instructions Encounter Date Encounter Id Patient Instructions Last Modified By Organization Details Last Modified Time 09/19/2023 [id number] SCHEDULE FOLLOW UP IN 3 MONTHS IF YOU DONT HEAR FROM THE CARDIOLOGY DEPT THIS WEEK CALL [facility] WIREWORKER SUPERVISOR AND LET THEM KNOW IF YOUR BREATHING GETS WORSE- GO TO THE ER, DONT OVER DO THINGS PHYSICALLY EXPECT A CALL FROM SARA ZAFAR RE: UPDATING YOUR POWER OF SUPERVISOR LAUNDRY (NEED 2 WITNESSED SIGNATURES) Not available 09/19/2023 09:25:07 12/18/2023 [id number] Karlos: expect a call from the STructural heart team at [facility] drink at least 6 glasses of water a day. checking kidney function and magnesium labs today will mail home. follow up in 3 months for BPH, Aortic stenosis. 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 Referral for Roland ateral hearing loss Referring Physician: Aparna Jordan, Family Medicine, Encounter Date: 02/26/2024 Results Created Date Observation Date Name Description Value Unit Range Abnormal Flag Note LastModifiedBy Organization Detail LastModifiedTime 12/18/19 24 12/18/2023 LASIC METAB OLIC PANEL calcium 9.3 mg/dL 8.5-10 .1 normal Not Available [address] [place], [address] 12/18/2023 17:09:55 12/18/19 24 12/18/2023 LASIC METAB OLIC PANEL glucose 90 mg/dL 74-106 normal Not Available Baljit montemayor [address] [place], [address] 12/18/2023 17:09:55 12/18/19 24 12/18/2023 LASIC METAB OLIC PANEL BUN 14 mg/dL 7-18 normal Not Available Baljit montemayor [address] [place], [address] 12/18/2023 17:09:55 12/18/19 24 12/18/2023 LASIC METAB OLIC PANEL creatinine 1.0 mg/dL 0.70-1 .30 normal Not Available [address] [place], [address] 12/18/2023 17:09:55 12/18/19 24 12/18/2023 LASIC METAB [...] young er-ag ed adult s. Not Available [address] [place], [address] 12/18/2023 17:09:55 12/18/19 24 12/18/2023 LASIC METAB OLIC PANEL sodium 139 mmol/ L 136-14 5 normal Not Available [address] [place], [address] 12/18/2023 17:09:55 12/18/19 24 12/18/2023 LASIC METAB OLIC PANEL potassium 4.9 mmol/ L 3.5-5. 1 normal Not Available [address] [place], [address] 12/18/2023 17:09:55 12/18/19 24 12/18/2023 LASIC METAB OLIC PANEL chloride 104 mmol/ L 98-107 normal Not Available [address] [place], [address] 12/18/2023 17:09:55 12/18/19 24 12/18/2023 LASIC METAB OLIC PANEL CO2 30.9 mmol/ L 21.0-3 2.0 normal Not Available [address] [place], [address] 12/18/2023 17:09:55 12/18/19 24 12/18/2023 LASIC METAB OLIC PANEL anion gap 4.1 mmol/ L 3-11 normal Not Available [address] [place], [address] 12/18/2023 17:09:55 12/18/19 24 12/18/2023 MAGNE SIUM magnesium 1.8 mg/dL 1.8-2. 4 normal Not Available [address] [place], [address] 12/18/2023 17:09:56 09/11/20 23 12/05/2022 trans -thor acic echoc ardio gram (TTE) (PROC ) No observ ation record ed. [email or web address] [facility] Xray [address] , [place], [address], 09/13/2023 09:29:52 09/11/20 23 06/01/2022 XR, hip, unila teral No observ ation record ed. [email or web address] Not Available 2022 09:29:19 09/11/20 23 12/06/2019 US, echoc ardio gram No observ ation record ed. [email or web address] [facility]- Cardiology [facility], [place], [address], 09/13/2023 09:28:49 Result Notes None recorded. Problems Name Problem SNOMED Code Status Onset Date Resolution Date Notes Provider Name and Address Organization Details Recorded Time Gastroes ophageal reflux disease without esophagi tis 646963625 Active 2022 Problem Code: K21.9; Problem Code Type: ICD-10; Not Available [facility] 4 05:35:57 Glaucoma 83214345 Active 2022 Problem Code: H40.9; Problem Code Type: ICD-10; Not Available [facility] 4 05:35:57 Hyperlip idemia 11529059 Active 2022 Problem Code: E78.5; Problem Code Type: ICD-10; Not Available [facility] 4 05:35:57 [facility] hyperten niels 85328654 Active 2022 Problem Code: I10; Problem Code Type: ICD-10; Not Available [facility] 4 05:35:57 Pain of left hip joint 72886989542 9100 Active 2022 Problem Code: M25.552; Problem Code Type: ICD-10; Not Available [facility] 4 05:35:57 Idiopath ic osteoart hritis 551324762 Active 2022 Problem Code: M16.12; Problem Code Type: ICD-10; Not Available [facility] 4 05:35:57 Inguinal hernia 475155998 Active 2022 Problem Code: K40.90; Problem Code Type: ICD-10; Not Available [facility] 4 05:35:57 Heart murmur 11722888 Active 2022 Problem Code: R01.1; Problem Code Type: ICD-10; Not Available [facility] 4 05:35:57 Dyspnea 372478569 Active 2022 Problem Code: R06.09; Problem Code Type: ICD-10; Not Available [facility] 4 05:35:57 Chest pain 33601428 Active 2022 Problem Code: R07.89; Problem Code Type: ICD-10; Not Available [facility] 4 05:35:57 Melanocy tic nevus 954052912 Active 2022 Problem Code: D22.9; Problem Code Type: ICD-10; Not Available [facility] 4 05:35:57 Aortic stenosis , non-rheu matic 298819101 Active 2022 Problem Code: I35.0; Problem Code Type: ICD-10; Not Available [facility] 4 05:35:58 Aortic stenosis , non-rheu matic 970863133 Completed 202208/14/2023 Problem Code: I35.0; Problem Code Type: ICD-10; Not Available [facility] 4 05:35:58 Indigest ion 260278665 Active 2023 GLORIA CAMP LPN null, [facility] 4 08:48:57 Coronary artery bypass grafts x 3 Active 2023 Kelly Duran RN [facility], [facility] 4 10:30:01 At increase d risk of atrial fibrilla tion 210315521 Active [address], [place], [address] , [facility] 4 13:52:01 Anemia 357144799 Active [address], [place], [address] , [facility] 4 13:54:39 Problem Notes None recorded. Procedures Surgical History Date Name Laterality Status Provider Name and Address Organization Details Recorded Time coronary artery bypass graft completed Hudson Reeder MA [facility], [place] - [facility]. 03/04/2024 14:54:09 Imaging Results Imaging Date Name Status LastModified by Organization Details LastModified Time 12/05/2022 trans-thoracic echocardiogram (TTE) (PROC) completed [address] Xray [address] , [place], [address], 09/13/2023 09:29:52 06/01/2022 XR, hip, unilateral [place] [address] Information not available 09/13/2023 09:29:19 12/06/2019 US, echocardiogram completed [address]- Cardiology [address], [place], [address], 09/13/2023 09:28:49 Procedure Notes None recorded. Medical [...] es. Take 1 hr prior. Started by [facility]. Not Available Not Available Not [...] BY MOUTH DAILY 02/24 completed stopped by [facility] Not Available Not Available Not [...] hours by oral route as needed. active [facility] Not Available Not Available No t Available Aspirin Childrens 81 mg chewable tablet Take 1 tablet by mouth once a day active Not Available Not Available No t Available lisinopri l 5 mg tablet TAKE 1 TABLET BY MOUTH EVERY DAY 02/24 completed stopped by [facility] Not Available Not Available Not [...] day by oral route. active started by [facility] Not Available Not Available Not Available dorzolami de 2 % (PF) eye drops 1 drop both eyes bid 12/17 completed Not Available Not Available Not Available Vitals Date Recorded Body weight Body mass index (BMI) Body height Heart rate Systolic blood pressure Diastolic blood pressure Provider Name and Address Organization Details Last Updated DateTime 3 33732.7 8 g 23.7 kg/m2 167.64 cm 64 /min 110 mm[Hg] 60 mm[Hg] GLORIA ZOË , [facility] 3 08:48:49 Date Recorded Body height Body mass index (BMI) Body weight Heart rate Systolic blood pressure Diastolic blood pressure Provider Name and Address Organization Details Last Updated DateTime 4 167.64 cm 24.6 kg/m2 58028.4 4 g 60 /min 112 mm[Hg] 80 mm[Hg] GLORIA CAMP [facility] 4 08:38:13 Date Recorded Body height Body mass index (BMI) Body weight Heart rate Oxygen saturation Oxygen saturation in Arterial blood by Pulse oximetry Systolic blood pressure Diastolic blood pressure Provider Name and Address Organization Details Last Updated DateTime 4 167.64 cm 22.6 kg/m2 49875.6 5 g 63 /min 99 % 99 % 102 mm[Hg] 54 mm[Hg] Hudson Reeder MA [facility] 4 10:27:28 Social History Question Answer Notes LastModified by Organizat ion Details LastModified Time Tobacco Smoking Status Former Smoker Hudson Reeder MA null, [facility] 03/06/2024 10:24:50 Do You Have An Advance Directive? Yes Registered 08/15/23 Updated 01/12/24 Information not available 01/15/2024 When Did You Quit Smoking? 11-15years sincelastc igarette [email or web address] Information not available 03/06/2024 Do You Have A Medical Power Of Auto Air Conditioning Installer? Yes Received 08/30/23, Scanned. Copies Sent To [facility] And Patient 09/02/23. Information not available 09/02/2023 What Was The Date Of Your Most Recent Tobacco Screening? 03/06/2024 [email or web address] Information not available 03/06/2024 What Is Your Current Pack Years? 30ormorepa ckyears [email or web address] Information not available 03/06/2024 How Much Tobacco Do You Smoke? 1 PPD [email or web address] Information not available 03/06/2024 How Many Years Have You Smoked Tobacco? 40 [email or web address] Information not available 03/06/2024 Do You Or Have You Ever Used Any Other Forms Of Tobacco Or Nicotine? No [email or web address] Information not available 03/06/2024 Sex: Male Functional [...] Td(adult) unspecified formulation 11/21/2022 completed Not Available [facility] 10/18/2023 05:30:17 COVID-19, mRNA, LNP-S, PF, 100 mcg/0.5mL dose or 50 mcg/0.25mL dose 01/24/2021 completed Not Available [facility] 10/18/19 05:30:18 COVID-19, mRNA, LNP-S, PF, 100 mcg/0.5mL dose or 50 mcg/0.25mL dose 02/21/2021 completed Not Available [facility] 10/18/19 05:30:18 COVID-19, mRNA, LNP-S, PF, 100 mcg/0.5mL dose or 50 mcg/0.25mL dose 09/11/2021 completed Not Available [facility] 10/18/19 05:30:18 influenza, unspecified formulation 07/26/2021 completed Not Available [facility] 10/18/2023 05:30:18 influenza, unspecified formulation 07/26/2022 completed Not Available [facility] 10/18/2023 05:30:18 influenza, unspecified formulation 07/28/2020 completed Not Available [facility] 10/18/2023 05:30:18 influenza, unspecified formulation 08/05/2019 completed Not Available [facility] 10/18/2023 05:30:18 influenza, unspecified formulation 08/12/2018 completed Not Available [facility] 10/18/2023 05:30:18 Past Encounters Encounter ID Performer Location Encounter Start Date Encounter Closed Date Diagnosis/Indication Diagnosis SNOMED-CT Code Diagnosis ICD10 Code [id number] [address] [address] 09/19/2023 08:39:51 09/19/2023 09:17:42 Aortic valve stenosis 53612904 I35.0 Essential hypertension 97906874 I10 [id number] [address] [address] 12/18/2023 08:23:47 12/18/2023 09:29:09 Aortic stenosis, non-rheumatic 977449412 I35.0 Essential hypertension 94715186 I10 Nonulcer dyspepsia 24818 07 K30 Cramp in lower leg 93998 8009 R25.2 [id number] TATYANA LEDEZMA MD [address] [address] 03/06/2024 10:15:07 03/06/2024 11:14:28 Postoperative visit 834877230 Z48.89 Aortic rosa m nosis, non-rheumatic 025615920 I35.0 Stented co ronary artery 798647030 Z95.5 At [facility] ed risk of atrial fibrillation 850948446 Z91.89 Anemia 586380520 D64.9 Health Concerns Section Related Observation LastModified by Organization Detai ls LastModified Time None Recorded Concern Status LastModified by Organization Details LastModified Time None Recorded Advance Directives Directive Y: Registered 08/15/23Updated 01/12/24 Payers Encounter Date Sequence Insurance Name Policy Number Policy Alicia Covered Member ID Alicia Member ID Guarantor Name 12/18/2023 1 [facility] [id number] Karlos C Patenaude [id number] Karlos C Patenaude 03/06/2024 1 [place] [id number] Karlos C Patenaude [id number] Karlos C Patenaude Notes Date Note Type Note Provider Name and Address Organization Details Recorded Time 09/19/2023 text/html HPI Notes: 63-year-old man here for follow-up hypertension, severe aortic stenosis., He works full-time at [employer]. He lives at home with his dog. He has not heard from [facility] cardiology? referred mid-August. He did decrease his lisinopril to 5 mg, home SBPs running 110- 138, no change in slight lightheadedness with change position. He does continue to get dyspnea on exertion, denies chest pain, resolves fairly quickly no peripheral edema. 12/05/2022 [facility] transthoracic echocardiogram; there is moderate to severe aortic stenosis with disparate indicators. The calculated valve area is 0.8 cm2 is consistent with severe stenosis. Planimetry confirms valve area to 0.9 cm2. The mean gradient of 28 mmHg and peak velocity of 3.6M/S are consistent with moderate stenosis. There is trivial to mild aortic insufficiency. Aparna lizarraga [place] [employer] [facility]. 09/19/2023 13:31:38 12/18/2023 text/html HPI Notes: 63-year-old man here for follow-up hypertension, severe aortic stenosis., He works full-time at [employer]. He lives at home with his dog. 12/05/2022 [facility] transthoracic echocardiogram; there is moderate [...] repair a number of years ago at [facility], it is starting to cause some discomfort. Reports leg cramps at nighttime intermittently, improves when he has a Gatorade during the daytime and Ovaltine in his coffee. Aparna lizarraga [place] [employer] [facility] 12/18/2023 11:43:00 03/06/2024 text/html HPI Notes: Ana Paula marlow is here today for a postop evaluation TATYANA LEDEZMA MD [address], [place], [address], [facility]. 03/08/2024 13:57:34
--- OUTSIDE RECORDS SUMMARY | 2024-06-24 08:31 | XMS_ITS | Encounter Summary ---
Author Organization [facility] Address [address] [place] [address] Care Team Providers Care Loading Unit Operator Crimping Name Role Phone Vanessa Christian Lane MONCADA Primary Care Provider [phone] Encounter Details Date Type Department Care Team (Late st Contact Info) Description 10/24/2023 Lab Requisition [facility] Pathology & Laboratory Medicine - [address] [address] Oscar Nichole MD [address] [place] [address] [id number] Factitial dermatitis Social History Tobacco Use Types [...] management options, if applicable. 10/28/2023 11:24 EST [facility] Final Diagnosis A. SKIN OF ALEVISM, LEFT, SHAVE BIOPSY: - Seborrheic keratosis, pigmented. 10/28/2023 11:24 EST [facility] Attestation By the signature below, the attending physician certifies that they have 1) personally conducted a gross and/or microscopic examination of the described specimen(s), and/or personally interpreted the results of laboratory testing of the described specimen(s), and 2) personally rendered or confirmed the above diagnosis. 10/28/2023 11:24 [facility] at 1124 Microscopic Description The stratum corneum is thickened by compact and basketweave orthokeratosis with formation of horn pseudocysts. The epidermis is acanthotic with formation of broad and anastomosing trabeculae. The trabeculae are composed of basaloid keratinocytes with round uniform nuclei. The keratinocytes have a variable amount of melanin pigment. 10/28/2023 11:24 [facility] Clinical History Pigmented 2 cm patch; clinical diagnosis code: L98.1 10/28/2023 11:24 [facility] Gross Description A. Received in formalin labelled with proper patient identification (initials P, A) and left zoroastrianism is a shave biopsy of an irregular [...] A3. Nora Anderson 10/25/2023 8:47 10/28/2023 11:24 [facility] Performing Lab [facility] 10/28/2023 11:24 [facility] Scanned Images 10/28/2023 11:24 [facility] Tissue SPECIMEN FROM SKIN / Unknown 10/24/2023 14:30 EST 10/24/2023 22:04 EST Oscar Nichole MD PATHOLOGY ORDERABLES [facility] [address] [place] [address] documented in this encounter Visit Diagnoses Diagnosis Factitial dermatitis Dermatitis factitia (artefacta) documented in this encounter Care Teams Loading Unit Operator Crimping Relationship Specialty Start Date End Date Vanessa Christian NP [address] [place] [address] PCP - General Family Medicine - Primary Care 10/07/23 documented as of this encounter
--- OUTSIDE RECORDS SUMMARY | 2024-06-24 08:31 | XMS_ITS | Encounter Summary ---
Author Organization [facility] [place] [address] Care Team Providers Care Magneto Electrician Name Role Phone Vanessa Christian MAURI Primary Care Provider [phone] Encounter Details Date Type Department Care Team [...] PM EST Office Visit Cardiology at [address] [address] Neftali Ernandez MD [facility] [place] [address] documented as of this encounter Visit Diagnoses Not on filedocumented in this encounter Care Teams Magneto Electrician Relationship Specialty Start Date End Date Vanessa Christian APRN [address] [place] [address] PCP - General Family Medicine 05/27/24 documented as of this encounter
--- OUTSIDE RECORDS SUMMARY | 2024-06-24 08:31 | XMS_ITS | Encounter Summary ---
Author Organization [facility] Address [facility] [place] [address] Care Team Providers Care Raftsman Name Role Phone Vanessa Christian Lane DOTSON Primary Care Provider [phone] Reason for Visit * Reason Comments Coronary Artery Disease Aortic Stenosis Encounter Details Date Type Department Care Team (Latest Contact Info) Description 05/27/2024 11:00 AM EDT Office Visit Cardiology at [address] [place] [address] Neftali Ernandez MD [facility] [place] [address] ASCVD (arteriosclerotic cardiovascular disease); Nonrheumatic aortic valve stenosis Social History Tobacco Use Types Packs/Day Years Used Date Smoking Tobacco: Former Cigarettes Smokeless Tobacco: Never Comments:Quit 15 + years ago Alcohol Use Standard Drinks/Week Comments Yes 0 (1 standard drink = 0.6 oz pur e alcohol) rare [facility] Utilities Answer Date Recorded In the past 12 months has e [employer], gas, oil, or water [facility] threatened to shut off services in your [...] procedures. * Assessment & Plan Note - Netfali Ernandez MD - 05/27/2024 11:06 AM EDT [...] PM EST Office Visit Cardiology at [address] [address] Neftali Ernandez MD [facility] [place] [address] documented as of this encounter Visit Diagnoses Diagnosis ASCVD (arteriosclerotic cardiovascular disease) Unspecified cardiovascular disease Nonrheumatic aortic valve stenosis Aortic valve disorders documented in this encounter Care Teams Raftsman Relationship Specialty Start Date End Date aVnessa Christian APRN [address] [place] [address] PCP - General Family Medicine 05/27/24 documented as of this encounter
--- OUTSIDE RECORDS SUMMARY | 2024-06-24 08:31 | XMS_ITS | Referral Summary ---
Author Organization [facility] Address [address] [place] [address] Care Team Providers Care Mining Technician Name Role Phone Filidayna Vanessa Sherman NP Primary Care Provider [phone] Social History Tobacco Use Types Packs/Day Years Used Date Smoking Tobacco: Never Assessed Sex and Gender Information Value Date Recorded Sex Assigned at Not on file Gender Identity Not on file Sexual Orientation Not on file Plan of Treatment Not on file Care Teams Mining Technician Relationship Specialty Start Date End Date Vanessa Christian NP [address] [place] [address] PCP - General Family Medicine - Primary Care 10/07/23
--- OUTSIDE RECORDS SUMMARY | 2024-06-24 08:31 | XMS_ITS | Encounter Summary ---
Author Organization [facility] Address [facility] [place] [address] Care Team Providers Care Orchid Worker Name Role Phone Gino Vanessa Lane DOTSON Primary Care Provider [phone] Encounter Details Date Type Department Care Team (Late st Contact Info) Description 02/24/2024 Orders Only Cardiac Surgery [facility] [place] [phone] Trudi Lester APRN [facility] [place] [address] Social History Tobacco Use Types Packs/Day Years Used Date Smoking Tobacco: Former Cigarettes Smokeless Tobacco: Never Comments:Quit 15 + years ago Alcohol Use Standard Drinks/Week Comments Yes 0 (1 standard drink = 0.6 oz pur e alcohol) rare [facility] Utilities Answer Date Recorded In the past 12 months has e [employer], gas, oil, or water [employer] threatened to shut off services in your [...] PM EST Office Visit Cardiology at [address] [place] [address] Neftali Ernandez MD [facility] [place] [address] documented as of this encounter Visit Diagnoses Not on filedocumented in this encounter Care Teams Orchid Worker Relationship Specialty Start Date End Date Vanessa Christian APRN PCP - General Family Medicine 10/21/23 05/26/24 documented as of this encounter
--- OUTSIDE RECORDS SUMMARY | 2024-06-24 08:31 | XMS_ITS | Clinical Summary ---
Author Organization [facility] Address [address] [place] [address] Care Team Providers Care Inspector Production Plastic Parts Name Role Phone Vanessa Christian NP Primary Care Provider [phone] Social History Tobacco Use Types Packs/Day Years [...] COVID-19 Vaccine (2022- season) 2024 Care Teams Inspector Production Plastic Parts Relationship Specialty Start Date End Date Vanessa Christian NP [address] [place] [phone] PCP - General Family Medicine - Primary Care 10/07/23
--- OUTSIDE RECORDS SUMMARY | 2024-06-24 08:31 | XMS_ITS | Encounter Summary ---
Author Organization [facility] Address [facility] [place] [address] Care Team Providers Care Social Media Campaign Manager Name Role Phone Vanessa Christian MAURI Primary Care Provider [phone] Encounter Details Date Type Department Care Team [...] PM EST Office Visit Cardiology at [address] [phone] Neftali Ernandez MD [facility] [place] [address] documented as of this encounter Visit Diagnoses Not on filedocumented in this encounter Care Teams Social Media Campaign Manager Relationship Specialty Start Date End Date Vanessa Christian APRN PCP - General Family Medicine 10/21/23 05/26/24 documented as of this encounter
--- OUTSIDE RECORDS SUMMARY | 2024-06-24 08:31 | XMS_ITS | Encounter Summary ---
Author Organization [facility] Address [facility] [place] [address] Care Team Providers Care Web Application Tester Name Role Phone Vanessa Christian MAURI Primary Care Provider [phone] Encounter Details Date Type Department Care Team (Late st Contact Info) Description 03/12/2024 2:40 PM EDT Office Visit [place] [phone] Zak Farmer MD [facility] [place] [address] Coronary artery disease, unspecified vessel or lesion type, unspecified whether angina present, unspecified whether saxman or transplanted heart Social History Tobacco Use Types Packs/Day Years Used Date Smoking Tobacco: Former Cigarettes Smokeless Tobacco: Never Comments:Quit 15 + years ago Alcohol Use Standard Drinks/Week Comments Yes 0 (1 standard drink = 0.6 oz pur e alcohol) rare [facility] Utilities Answer Date Recorded In the past 12 months has e [employer], gas, oil, or water [employer] threatened to shut off services in [...] 2:40 PM EDT To: MD Vanessa Coles, INSOLE PRESSER Re; Karlos Santa ( 1960) We had [...] office. Best personal regards, Zak Farmer MD [phone] documented in this encounter Plan of Treatment Upcoming Encounters Date Type Department Care Team (Late st Contact Info) Description 11/30/2024 3:00 PM EST Office Visit Cardiology at [address] [place] [address] Neftali Ernandez MD [facility] [place] [address] documented as of this encounter Procedures Procedure Name Priority Date/Time Associated Diagnosis Comments EKG 12-LEAD Routine 03/12/2024 2:35 PM EDT Coronary artery disease, unspecified vessel or lesion type, unspecified whether angina present, unspecified whether saxman or transplanted heart documented in this encounter Results * EKG 12 Lead (03/12/2024 2:35 PM EDT) Ventricular rate 59 BPM MUSE SYSTEM Atrial Rate 59 BPM MUSE SYSTEM P-R Interval 190 ms MUSE SYSTEM QRS Duration 92 ms MUSE SYSTEM Q-T Interval 406 ms MUSE SYSTEM QTC Calculated (Bezet) 401 ms MUSE SYSTEM Calculated P [place] -12 degrees MUSE SYSTEM Calculated R [place] 24 degrees MUSE SYSTEM Calculated T [place] 74 degrees MUSE SYSTEM INTERPRETATION Sinus bradycardia T wave abnormality, consider anterior ischemia Abnormal ECG When compared with ECG of 17-FEB-2024 13:24, [place] interval has decreased T wave inversion now evident in Anterior leads Confirmed by Paul Guzman ([id number]) on 03/15/2024 8:36:23 AM MUSE SYSTEM 03/12/2024 2:35 PM EDT 03/15/2024 8:36 AM EDT Zak Farmer MD ECG ORDERABLES MUSE SYSTEM documented in this encounter Visit Diagnoses Diagnosis Coronary artery disease, unspecified vessel or lesion type, unspecified whether angina present, unspecified whether saxman or transplanted heart documented in this encounter Care Teams Web Application Tester Relationship Specialty Start Date End Date Vanessa Christian APRN PCP - General Family Medicine 10/21/23 05/26/24 documented as of this encounter
--- OUTSIDE RECORDS SUMMARY | 2024-06-24 08:31 | XMS_ITS | Clinical Summary ---
Author Organization [facility] Address [facility] [place] [address] Care Team Providers Care Overlock Hemmer Name Role Phone Vanessa Christian Lane DOTSON Primary Care Provider [phone] Allergies No known active allergies Medications Medication [...] of face 09/26/2023 05/27/2024 Overview (09/26/2023): Right tenriism Chest pressure 08/14/2023 10/21/2023 SILVA (dyspnea on exertion) 08/14/2023 HLD (hyperlipidemia) 08/14/2023 024 Encounters Date Type Department Care Team Description 05/27/2024 11:00 AM EDT Office Visit Cardiology at [address] [place] [address] Neftali Ernandez MD ASCVD (arteriosclerotic cardiovascular disease); Nonrheumatic aortic valve stenosis 05/27/2024 Travel 05/20/2024 Travel from Last 3 Months Social History Tobacco Use Types Packs/Day Years Used Date Smoking Tobacco: Former Cigarettes Smokeless Tobacco: Never Comments:Quit 15 + years ago Alcohol Use Standard Drinks/Week Comments Yes 0 (1 standard drink = 0.6 oz pur e alcohol) rare [facility] Utilities Answer Date Recorded In the [...] PM EST Office Visit Cardiology at [address] [place] [address] Neftali Ernandez MD [facility] [place] [address] Health Maintenance Due Date Last [...] series) 06/07/2024 Medical Devices Implanted Type Area Bin Worker Device Identifier Shelf Expiration Date Model / Serial / Lot Cable,Cut,Edg ,Blnt,Ss,3tpr ([id number]) - [id number] Implanted:Qty : 1 on 02/17/2024 by Zak Farmer MD at [facility] IMPLANTS Midline: Chest [employer] - [id number] 09/02/2028 [id number] / / [id number] Valve Coronary Aortic 23mm Tissue Trnscath Bi[employer] Inspiris ([id number]) (Autoreq) - [id number] Implanted:Qty : 1 on 02/17/2024 by Zak Farmer MD at [facility] IMPLANTS Heart [employer] - TSAI LI 09/15/2027 [id number] / [id number] / Procedures Procedure Name Priority Date/Time Associated [...] (Bezet) 367 ms MUSE SYSTEM Calculated P [place] 12 degrees MUSE SYSTEM Calculated R [place] 27 degrees MUSE SYSTEM Calculated T [place] 62 degrees MUSE SYSTEM INTERPRETATION Sinus bradycardia with 1st degree A-V block Otherwise normal ECG When compared with ECG of 12-MAR-2024 14:35, T wave inversion no longer evident in Anterior leads Confirmed by MD Ernandez Daniel ([id number]) on 06/01/2024 8:36:17 AM MUSE SYSTEM 05/27/2024 [...] Status decision made by: Patient Care Teams Overlock Hemmer Relationship Specialty Start Date End Date Vanessa Christian, [employer] [address] [place] [address] PCP - General Family Medicine 05/27/24
--- OUTSIDE RECORDS SUMMARY | 2024-06-24 08:31 | XMS_ITS | Encounter Summary ---
Author Organization [facility] Address [facility] [place] [address] Care Team Providers Care Collision Center Manager Name Role Phone Vanessa Christian MAURI Primary Care Provider Encounter Details Date Type Department Care Team (Latest Contact Info) Description 03/12/2024 1:30 PM EDT - 03/12/2024 11:59 PM EDT Hospital Encounter XRay at [address] [place] [address] Coronary artery disease, unspecified vessel or lesion type, unspecified whether angina present, unspecified whether [place] or transplanted heart Discharge Disposition: Home Social History Tobacco Use Types Packs/Day Years Used Date Smoking Tobacco: Former Cigarettes Smokeless Tobacco: Never Comments:Quit 15 + years ago Alcohol Use Standard Drinks/Week Comments Yes 0 (1 standard drink = 0.6 oz pur e alcohol) rare [facility] Utilities Answer Date Recorded In the past 12 months has e [employer], gas, oil, or water [employer] threatened to shut off services in your [...] PM EST Office Visit Cardiology at [address] [place] [address] Neftali Ernandez MD [facility] [address] documented as of this encounter Procedures Procedure Name Priority Date/Time Associated Diagnosis Comments XR CHEST PA AND LATERAL Routine 03/12/2024 1:42 PM EDT Coronary artery disease, unspecified vessel or lesion type, unspecified whether angina present, unspecified whether [place] or transplanted heart documented in this encounter Results * XR Chest PA & Lateral (Generic) (03/12/2024 1:42 PM EDT) WORKSTATION ID [id number] RAD Anatomical Region Laterality Modality Chest N/A [...] questions please contact the health respiratory care program director that requested your imaging first. ? Narrative 03/13/2024 8:28 AM EDT EXAMINATION: XR CHEST PA AND LATERAL (GENERIC) CLINICAL HISTORY: s/p cabg eval effusions I25.10, Atherosclerotic heart disease of [place] coronary artery without angina pectoris TECHNIQUE: PA [...] eval effusions I25.10, Atherosclerotic heart disease of [place] coronary artery withoutangina pectoris TECHNIQUE: PA and [...] have questions please contactthe health respiratory care program director that requested your imaging first. Zak Farmer MD IMG DX ORDERABLES documented in this encounter Visit Diagnoses Diagnosis Coronary artery disease, unspecified vessel or lesion type, unspecified whether angina present, unspecified whether [place] or transplanted heart documented in this encounter Care Teams Collision Center Manager Relationship Specialty Start Date End Date Vanessa Christian, MAURI PCP - General Family Medicine 10/21/23 05/26/24 documented as of this encounter
--- OUTSIDE RECORDS SUMMARY | 2024-06-24 08:31 | XMS_ITS | Encounter Summary ---
Author Organization [facility] Address [facility] [place] [address] Care Team Providers Care Correctional Officer Name Role Phone Vanessa Christian MAURI Primary Care Provider [phone] Encounter Details Date Type Department Care Team (Latest Contact Info) Description 03/12/2024 Travel Social History Tobacco Use Types Packs/Day Years Used Date Smoking Tobacco: Former Cigarettes Smokeless Tobacco: Never Comments:Quit 15 + years ago Alcohol Use Standard Drinks/Week Comments Yes 0 (1 standard drink = 0.6 oz pur e alcohol) rare [facility] Utilities Answer Date Recorded In the past [...] PM EST Office Visit Cardiology at [address] [phone] Neftali Ernandez MD [facility] [place] [address] documented as of this encounter Visit Diagnoses Not on filedocumented in this encounter Care Teams Correctional Officer Relationship Specialty Start Date End Date Vanessa Christian APRN PCP - General Family Medicine 10/21/23 05/26/24 documented as of this encounter
--- OUTSIDE RECORDS SUMMARY | 2024-06-24 08:32 | XMS_ITS | Encounter Summary ---
Author Organization [facility] Address [facility] [place] [address] Care Team Providers Care Cutting Pressman Name Role Phone Vanessa Christian APRN Primary Care Provider [phone] Encounter Details Date Type Department Care Team [...] PM EST Office Visit Cardiology at [address] [place] [address] Neftali Ernandez MD [facility] [place] [address] documented as of this encounter Visit Diagnoses Not on filedocumented in this encounter Care Teams Cutting Pressman Relationship Specialty Start Date End Date Vanessa Christian APRN PCP - General Family Medicine 10/21/23 05/26/24 documented as of this encounter
--- OUTSIDE RECORDS SUMMARY | 2024-06-24 08:32 | XMS_ITS | Encounter Summary ---
Author Organization [place] [address] Care Team Providers Care Manager Regional Sales Name Role Phone Vanessa Christian Lane DOTSON Primary Care Provider Reason for Referral * Diagnostic Test (Routine) - Closed Specialty Diagnoses / Procedures Referred By Contac t Referred To Contact Radiology Diagnoses Nonrheumatic aortic valve stenosis Procedures CT Chest wo Contrast (Generic) Louisa Cho PA [facility] [place] CARDIOTHORACIC [place] [address] [facility] [place] [address] Referral ID Status Reason Start Date Expiration Date V isits Requested Visits Authorized [id number] Closed Specialty Service Requested 01/10/2024 07/11/2025 1 1 Reason for Visit * Diagnostic Test (Routine) - Closed Specialty Diagnoses / Procedures Referred By Contac t Referred To Contact Radiology Diagnoses Nonrheumatic aortic valve stenosis Procedures CT Chest wo Contrast (Generic) Louisa Cho PA [facility] CARDIOTHORACIC [place] [address] [facility] [place] [address] Referral ID Status Reason Start Date Expiration Date V isits Requested Visits Authorized [id number] Closed Specialty Service Requested 01/10/2024 07/11/2025 1 1 Encounter Details Date Type Department Care Team (Latest Contact Info) Description 02/03/2024 7:36 AM EDT - 02/03/2024 8:05 AM EDT Hospital En[facility] [place] [address] [facility] CARDIOTHORACIC [place] [address] Nonrheumatic aortic valve stenosis Discharge Disposition: Home Social History Tobacco Use Types Packs/Day Years Used Date Smoking Tobacco: Former Cigarettes Smokeless Tobacco: Never Comments:Quit 15 + years ago Alcohol Use Standard Drinks/Week Comments Yes 0 (1 standard drink = 0.6 oz pur e alcohol) rare [facility] Inpatient Questions Answer Date Recorded Does [...] PM EST Office Visit Cardiology at [address] [place] [address] [facility] [place] [address] documented as of this encounter Procedures Procedure Name Priority Date/Time Associated Diagnosis Comments CT CHEST WO CONTRAST (GENERIC) Routine 02/03/2024 7:44 AM EDT Nonrheumatic aortic valve stenosis documented in this encounter Results * CT Chest wo Contrast (Generic) (02/03/2024 7:44 AM EDT) [employer] WORKSTATION ID [id number] DH RAD Anatomical Region Laterality Modality Chest [...] questions please contact the health child care giver that requested your imaging first. ? Narrative [...] nodule along the minor fissure (series [id number]) and a 8 mm right lower lobe [...] have questions please contactthe health child care giver that requested your imaging first. Zak Farmer MD IMG CT ORDERABLES documented in this encounter Visit Diagnoses Diagnosis Nonrheumatic aortic valve stenosis Aortic valve disorders documented in this encounter Care Teams Manager Regional Sales Relationship Specialty Start Date End Date Vanessa Christian APRN PCP - General Family Medicine 10/21/23 05/26/24 documented as of this encounter
--- OUTSIDE RECORDS SUMMARY | 2024-06-24 08:32 | XMS_ITS | Encounter Summary ---
Author Organization [facility] [place] [address] Care Team Providers Care Metallurgy Teacher Name Role Phone Vanessa Christian MAURI Primary Care Provider [phone] Reason for Visit * Auth/Cert (Routine) Specialty [...] W RHC (WRVU 5.9) Rima Dickinson MD [facility] [place] [address] [facility] Referral ID Status Reason Start Date Expiration Date Visits Re quested Visits Authorized [id number] 1 1 Encounter Details Date Type Department Care Team (Late st Contact Info) Description 02/03/2024 10:00 AM EDT - 02/03/2024 11:00 AM EDT Surgery [employer] [place] [address] Saira Lua MD [facility] [place] [address] CARDIAC CATHETERIZATION Social History Tobacco Use Types [...] lbs Follow-up Visits Follow up with your sling operator in 2-4 weeks Access Site 'Black and Blue' and tenderness is expected during the first week Call if you noted a mass (lump) greater than the size of a ellis Call Office with any Questions and if you have any of the following Clarence Lane M.D Interventional Meat Press Operator Certified Composites Technician #: [phone] * Attachments The following attachments cannot be sent through Care Everywhere. * CAD (Coronary Artery Disease): General Info (Rwandan) * Coronary Angiogram: Post-op ([place]an) documented in this encounter Medications at Time [...] as of this encounter H&P Notes * Calrence Lane MD - 02/03/2024 11:48 AM EDT [facility] Interventional Cardiology Adult Pre-Procedure H&P Update: Cardiac Catheterization Karlos Anthony [id number] 1960 Chief Complaint: Aortic stenosis HPI: Mr. [...] is inthe chart Clarence Lane MD Interventional Meat Press Operator 02/03/24 11:48 AM documented in this encounter Miscellaneous Notes * Brief Op Note - Clarence Lane MD - 02/03/2024 12:51 PM EDT Preliminary Cardiac Catheterization Procedure Note: Patient Name: Karlos Anthony : [id number] MR#: [id number] Case Date: 02/03/2024 Certified Composites Technician: Surgeon(s) and Role: * Saira Lua MD [...] PM EST Office Visit Cardiology at [address] [address] Neftali Ernandez MD [facility] [place] [address] Scheduled Orders Name Type Priority Associated Diagnoses [...] Modality Other Narrative 02/12/2024 3:47 PM EDT ?[facility] ? Cardiac Catheterization/Intervention Report ? Patient Name: Patenaude, Karlos ? Procedure Date: 02/03/2024 ? A #: [id number] ? Primary Physician: Saira Lua ? Case #: [id number] ? File Name: [id number] ? Catheterization Order Number: [id number] ? [facility] ? Final Report [place], [place] ? Patient Name: ? Karlos Patenaude ? ID#: ?[id number] ? : ?1960 ? Procedure Date: ? [...] Procedure Note Saira Lua MD - 02/12/2024 [facility] Cardiac Catheterization/Intervention Report Patient Name: Karlos Anthony Procedure Date: 02/03/2024 A #: [id number] Primary Physician: Saira Lua Case #: [id number] File Name: [id number] Catheterization Order Number: [id number] [facility] FinalReport [place], [place] Patient Name: Karlos Anthony ID#:[id number] :1960 Procedure Date: February 03, 2024 Case [...] was designated as ASA Class III. The [facility] clinical frailty scale is 3: [...] (Bezet) 372 ms MUSE SYSTEM Calculated P [place] 59 degrees MUSE SYSTEM Calculated R [place] 34 degrees MUSE SYSTEM Calculated T [place] 63 degrees MUSE SYSTEM INTERPRETATION Sinus bradycardia [...] MD) documented in this encounter Care Teams Metallurgy Teacher Relationship Specialty Start Date End Date Vanessa Christian APRN PCP - General Family Medicine 10/21/23 05/26/24 documented as of this encounter
--- OUTSIDE RECORDS SUMMARY | 2024-06-24 08:32 | XMS_ITS | Encounter Summary ---
Author Organization [facility] Address [facility] [place] [address] Care Team Providers Care Financial Services Technician Name Role Phone Vanessa Christian MAURI Primary Care Provider [phone] Encounter Details Date Type Department Care Team (Late st Contact Info) Description 02/14/2024 Orders [place] [phone] Zak Farmer MD [facility] [place] [address] Coronary artery disease, unspecified vessel or lesion type, unspecified whether angina present, unspecified whether [place] or transplanted heart (Primary Dx) Social History [...] PM EST Office Visit Cardiology at [address] [place] [phone] Neftali Ernandez MD [facility] [place], [place] [phone] documented as of this encounter Results * EKG 12 Lead (03/12/2024 2:35 PM EDT) Ventricular rate 59 BPM MUSE SYSTEM Atrial Rate 59 BPM MUSE SYSTEM P-R Interval 190 ms MUSE SYSTEM QRS Duration 92 ms MUSE SYSTEM Q-T Interval 406 ms MUSE SYSTEM QTC Calculated (Bezet) 401 ms MUSE SYSTEM Calculated P [place] -12 degrees MUSE SYSTEM Calculated R [place] 24 degrees MUSE SYSTEM Calculated T [place] 74 degrees MUSE SYSTEM INTERPRETATION Sinus bradycardia T wave abnormality, consider anterior ischemia Abnormal ECG When compared with ECG of 17-FEB-2024 13:24, [place] interval has decreased T wave inversion now evident in Anterior leads Confirmed by Paul Guzman ([id number]) on 03/15/2024 8:36:23 AM MUSE SYSTEM 03/12/2024 2:35 PM EDT 03/15/2024 8:36 AM EDT Zak Farmer MD ECG ORDERABLES MUSE SYSTEM * XR Chest PA & Lateral (Generic) (03/12/2024 1:42 PM EDT) WORKSTATION ID [id number] RAD Anatomical Region Laterality Modality Chest N/A [...] have questions please contact the health career consultant that requested your imaging first. ? Narrative 03/13/2024 8:28 AM EDT EXAMINATION: XR CHEST PA AND LATERAL (GENERIC) CLINICAL HISTORY: s/p cabg eval effusions I25.10, Atherosclerotic heart disease of [place] coronary artery without angina pectoris TECHNIQUE: PA [...] eval effusions I25.10, Atherosclerotic heart disease of [place] coronary artery withoutangina pectoris TECHNIQUE: PA and [...] who have questions please contactthe health career consultant that requested your imaging first. Zak Farmer MD IMG DX ORDERABLES documented in this encounter Visit Diagnoses Diagnosis Coronary artery disease, unspecified vessel or lesion type, unspecified whether angina present, unspecified whether [place] or transplanted heart- Primary Coronary artery disease, unspecified vessel or lesion type, unspecified whether angina present, unspecified whether [place] or transplanted heart documented in this encounter Care Teams Financial Services Technician Relationship Specialty Start Date End Date Vanessa Christian APRN PCP - General Family Medicine 10/21/23 05/26/24 documented as of this encounter
--- OUTSIDE RECORDS SUMMARY | 2024-06-24 08:32 | XMS_ITS | Encounter Summary ---
[facility] [place] [address] Care Team Providers Care Investigation Division Captain Name Role Phone Aparna Jordan MAURI Primary Care Provider [phone] Reason for Visit * Auth/Cert (Routine) Specialty [...] GRAFT (WRVU 7.93) Hayder Graham MD [facility] [place] [address] [facility] Referral ID Status Reason Start Date Expiration Date Visits Re quested Visits Authorized [id number] 1 1 Encounter Details Date Type Department Care Team (Late st Contact Info) Description 02/17/2024 7:30 AM EDT - 02/17/2024 1:26 PM EDT Surgery [place] [id number] Hayder Graham MD [facility] [place] [address] ENDOSCOPIC HARVEST VEIN(S) FOR CABG (WRVU 0.31) [...] Patient Age: 63 y.o. Birthdate: 1960 Language: Bangladeshi Race: White Ethnicity: Not nor Admit Date: 02/17/2024 Discharge Date: 02/24/24 Attending Physician: Hayder Graham MD Follow-up Recommendations for Providers: Please continue routine management of cardiovascular risk factors including blood pressure, lipids,glucose, etc. Please note any changes to medications. Patient to follow up with PCP, Aparna Jordan APRN, in 1-2 weeks. Patient to follow up with Gum Worker, Neftali Ernandez MD , in 2 weeks. Patient to follow up with Cardiac Surgeon, Dr. Hayder Graham, with a chest x-ray, EKG, and Echo. Inpatient Provider Contact Information: 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 Past Surgical History: Procedure Laterality Date PRO CABG, ARTERIAL, SINGLE N/A 02/17/2024 @CABG, USING ARTERIAL GRAFT;SINGLE ARTERIAL GRAFT (WRVU 33.75) performed by Hayder Graham MD at [facility] MAIN OR PRO CABG, ARTERY-VEIN, TWO N/A 02/17/2024 @CABG, TWO VENOUS GRAFTS & ARTERIAL GRAFT (WRVU 7.93) performed by Hayder Graham MD at [facility] MAIN OR PRO ENDOSCOPY W/VIDEO-ASST VEIN HARVEST, CABG Left 02/17/2024 ENDOSCOPIC HARVEST VEIN(S) FOR CABG (WRVU 0.31) performed by Hayder Graham MD at [facility] MAIN OR PRO REPLACEMENT PROSTHETIC AORTIC VALVE OPEN W CARDIOPULMONARY BYPASS HOMOGRF/STENT N/A 02/17/2024 @REPLACE AORTIC VALVE, OPEN, W\CPB, W\PROSTHETIC VALVE (WRVU 41.32) performed by Hayder Graham MD at [facility] MAIN OR Prior To Admission Medications [...] insufficiency. He has glaucoma. He used to bacCommand Information until about 15 years ago. He has undergone prior herniorrhaphy. 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 Major Procedures/Operations: 02/17/24 s/p avr/cabgx3 CABG x 3 JOSE->LAD SVG->dRCA SVG->OM1 EVH from LLE AVR with a 23 mm Inspiris Bioprosthesis Hospital Course: Karlos Garcia was admitted to [facility] on 02/17/2024 via the Same Day Program. [...] Hayder Graham and/or the Cardiac Surgery Physician Technical Project Manager Team may be reached at . Antibiotic [...] Please refer to the card with the [place] Heart Association Guidelines for more information. You [...] Dr. Hayder Graham. You may use a [place] Track or treadmill but avoid any pulling [...] should resume a low fat, low cholesterol, [place] Heart Association Diet. Driving: No driving until [...] while being managed by your PCP and/or Gum Worker. For future medication refills, please refer to your PCP and/or Gum Worker after your discharge from our service. Thank you REMOVE CHEST TUBE SUTURES ON OR AFTER 03/02/24 Home oxygen therapy: N/A Follow up appointments: You should follow up with your PCP, Aparna Jordan APRN, in 1-2 weeks. Our office will schedule an appointment with your Gum Worker, Neftali Ernandez MD , in 2 weeks. You have an appointment with your Cardiac Surgeon, Dr. Hayder Graham, 4 weeks with a chest x-ray, EKG, and Echo before your appointment. Cardiac Rehabilitation: Karlos Garcia was seen regarding participation in the outpatient Phase 2Cardiac Rehabilitation at [facility]. The patient agrees to a referral to this program. The referral will be sent at discharge and the patient should be contacted by the Program within 1- 2 weeks from discharge. Future Appointments and Orders Future Orders Complete By Expires Echocardiogram Transthoracic [84725 CPT(R)] 03/26/2024 09/25/2024 Process Instructions: Scheduling Instructions: Questions: Where will study be performed?: [facility] Clinics Does the patient have Congenital Heart Disease?: Does patient require sedation?: Sedation rationale: XR Chest PA & Lateral (Generic) [83611 73226 Custom] 03/26/2024 09/25/2024 Process Instructions: Scheduling Instructions: Questions: Portable exam?: Reason for exam and clinical history: s/p avr/cabg Clinical information / jerome questions for radiologist: Stat read required?: Date of injury if applicable: Requested Time: Where will study be performed?: [facility] Radiology Referral to Cardiac Rehab [[id number] Custom] As directed Process Instructions: If no progress note charted, please enter Clinical details in comments. Scheduling Instructions: Questions: My question or request is: s/p AVR/CABG. Cardiac rehab at [facility]. Referral to Home Health [REF34 Custom] As directed Process Instructions: If no progress note charted, please enter Clinical details in comments. Scheduling Instructions: Comments: Please evaluate Karlos Garcia for admission to Home Health. [address] Phone Number: Date of : 1960 Inpatient DOCUMENTATION FOR VNA SERVICES (INCLUDING THOSE PATIENTS WITH MEDICARE COVERAGE REQUIRING HOME VNA SERVICES AND/OR HOSPICE SERVICES) PATIENT'S LOCATION: Karlos Garcia [address] [place] [phone] Food Service Manager's Name: self/family In discussion with the attending physician, it is certified that this patient is under their care and that they, or a Nurse Practitioner, or Physician Technical Project Manager who is working directly with them, hada [...] for services as follows: HOME HEALTH AGENCY: [facility] [address] [place] [address] RN orders: Cardiopulmonary assessment, incisional assessment, assess [...] issues please call the Cardiology Office at [phone] FOR MEDICARE ONLY: (please delete this section [...] care: As above. Signed: NEFTALI MENON PA-C [facility] Section of Cardiac Surgery [facility] [place] [address] FAX [phone] Date: 02/24/2024 CC: Aparna Jordan, MAURI Jordan, Aparna Sherman APRN [address] [place] [address] documented in this encounter Discharge Instructions * [...] Hayder Graham and/or the Cardiac Surgery Physician Technical Project Manager Team may be reached at . Antibiotic [...] Please refer to the card with the [place] Heart Association Guidelines for more information. You [...] Dr. Hayder Graham. You may use a [place] Track or treadmill but avoid any pulling [...] should resume a low fat, low cholesterol, [place] Heart Association Diet. Driving: No driving until [...] while being managed by your PCP and/or Gum Worker. For future medication refills, please refer to your PCP and/or Gum Worker after your discharge from our service. Thank you REMOVE CHEST TUBE SUTURES ON OR AFTER 03/02/24 Home oxygen therapy: N/A Follow up appointments: You should follow up with your PCP, Aparna Jordan APRN, in 1-2 weeks. Our office will schedule an appointment with your Gum Worker, Neftali Ernandez MD , in 2 weeks. You have an appointment with your Cardiac Surgeon, Dr. Hayder Graham, 4 weeks with a chest x-ray, EKG, and Echo before your appointment. Cardiac Rehabilitation: Karlos Garcia was seen regarding participation in the outpatient Phase 2Cardiac Rehabilitation at [facility]. The patient agrees to a [...] 0600 and on the weekends please page [phone]. * Eric Barahona PA - 02/23/2024 9:27 [...] 0600 and on the weekends please page [phone]. * Tiffanie Owens - 02/22/2024 2:48 PM [...] Pt reports his dtr is coming from [place] to stay upon d/c for 10 days. 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 He works Precautions/Special Considerations: STERNAL [...] LRAD and supervision Time IN / OUT: 4584-8964 Total Time: 30 minutes; TEFx2 Tiffanie Owens Pager: [phone] Physical Therapy Inpatient Rehabilitation Department * Romeo [...] 0600 and on the weekends please page [phone]. * Kelley Hinson PORTAL DEVELOPER - 02/21/2024 10:15 AM EDT Physical Therapy [...] Pt reports his dtr is coming from [place] to stay upon d/c for 10 days. 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 * Kelley Hinson PTA - 02/20/2024 3:32 [...] at that time Kelley Hinson PTA Pager: [phone] Physical Therapy Inpatient Rehab Department * Louisa [...] 0600 and on the weekends please page [phone]. * Maris Benavides, PT - 02/19/2024 11:22 [...] Pt reports his dtr is coming from [place] to stay upon d/c for 10 days. 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 Precautions/Special Considerations: STERNAL [...] outlined inthis evaluation. MARIS BENAVIDES, PT Pager: [phone] Physical Therapy Inpatient Rehabilitation Department Time IN / OUT: 5491-7783 Total Time: 38 (eval) minutes; * Antonio [...] 0600 and on the weekends please page [phone]. * Minnie Begum PA - 02/18/2024 8:25 [...] site CDI with SANJANA wrap Tubes/Lines/Drains: RIJ/PAC, [place], Med Ctx, L pleural CT, TPW, Naqvi [...] 0600 and on the weekends please page [phone]. * Kim Ha HAND FUR CLEANER - 02/17/2024 2:25 PM EDT Respiratory [...] plan since last visit. Hayder Graham MD [phone] Source Note - Hayder Graham MD - [...] given written informed consent. Hayder Graham MD [phone] * Hayder Graham MD - 02/17/2024 7:00 [...] given written informed consent. Hayder Graham MD [phone] documented in this encounter Miscellaneous Notes * [...] for follow-up Home Health & Hospice, [address] [place] [id number] Cardiac Rehab, [address] [place] [id number] Transportation: family or friend will provide Functional status prior to admission: Independent Home Environment: Others in the home: alone. Current Living Arrangements: home/apartment/condo. Accessibility Concerns:a few steps to enter 1 floor home. Current Functional Ability: Assistive Person and Equipment DME used at home: none DME Needed at Discharge: N/A Patient is insured through: Primary Insurance: [employer] Payor: [facility] / Plan: [facility] PPO [...] pain managed with scheduled Tylenol. Worked with [employer]. Ambulated in the roque multiple times during [...] anticipated Patient is insured through: Primary Insurance: [facility] Payor: [facility] / Plan: [facility] PPO [...] Services: Physical Therapy, Registered Nurse Agency Referrals: [facility]. [address] [place] [address] Transportation: family or friend will provide Barriers to discharge: Discharge planning Plan going forward: Service Care Management will continue to follow and assist with discharge planning and coordination of care as indicated. Anticipated Date of Discharge: 02/22/2024 Rhett Bell RN RN/CM - Cellphone: [phone] Pager: [phone] Covering Service RN/CM * Plan of Care [...] RN - 02/19/2024 10:44 AM EDT [facility] CARDIAC REHABILITATION Karlos Garcia was seen today regarding participation in the outpatient Phase 2 Cardiac Rehabilitation at [facility]. 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 (Only good for 180 days) Any patient receiving care in [place] must abide by [place] law. The hierarchy [...] (i) The agent with financial power of animal rides manager or a conservator appointed in accordance with [...] or slept in [facility] (including now)?: No In the past 12 months has the [employer], gas, oil, or water [employer] threatened to shut off services in your [...] as: [address] [facility] [address] Physical address: [address] [facility], [address] Social & Family Supports: All names listed [...] Information: none noted Health/Prescription Coverage: Primary Insurance: [facility] Payor: [facility] / Plan: [facility] PPO / Product Type: *No Product type* / Secondary Insurance: N/A ; Prescription Coverage: Yes Preferred Pharmacy: [id number] [address] Status: Patient is a : No Primary Care Provider confirmed: Aparna Jordan APRN [phone] Patient/Caregiver Goals of Treatment: dc to home Potential Needs for Transition of Care: home health care Agency Referrals: I have met with the patient to: discuss discharge planning needs. provide the [facility], Office of Care Management letter from the Chemical Plant Technical Director pertaining to rehab referrals. provide a letter describing our affiliations within the [facility] and educate about their right to choose where referrals are sent. provide a list of Home Health Agencies / Durable Medical Equipment vendors which serve their preferred geographic area. provided patient with [facility] Star Quality Rating handout. They have requested referrals to: [facility] [address] [place] [address] Note routed to a Sugar Presser who will communicate referrals to facilities and [...] daughter, Cielo, will be coming in from [place] on 02/18, to stay with him , [...] Reina Greene RN CM, BSN, CMGT- Ext [phone] * Plan of Care - Binta Trinidad [...] Operative Note Patient Name: Karlos Garcia : [id number] MR#: [id number] Case Date: 02/17/2024 Surgeon: Surgeon(s) and Role: * Hayder Graham MD - Primary * Neftali Menon PA - Physician Technical Project Manager Preoperative diagnosis: CAD Postoperative diagnosis: CAD, intraoperative [...] Mediastinal and Left pleural Disposition: [facility] Condition: doing well without problems Attestation: Case Date: 02/17/2024 I performed this procedure without the involvement of a resident. HAYDER GRAHAM MD 02/17/2024 * Op Note - Hayder Graham MD - 02/17/2024 8:20 AM EDT [facility] Operative Note Patient Name: Karlos Garcia : [id number] MR#: [id number] Case Date: 02/17/2024 Surgeon: Surgeons and Role: * Hayder Graham MD - Primary * Neftali Menon PA - Physician Technical Project Manager Preoperative diagnosis: CAD Postoperative diagnosis: CAD, intraoperative [...] Mediastinal and Left pleural Disposition: [facility] Procedure Description: The patient was brought [...] PM EST Office Visit Cardiology at [address] [address] Neftali Ernandez MD [facility] [place] [address] Scheduled Orders Name Type Priority Associated Diagnoses [...] Aortic Valve Open W Cardiopulmonary Bypass Homogrf/Stent (52062) Yes 02/17/2024 7:28 AM EDT CAD Cabg, Artery-Vein, Two (23479) Yes 02/17/2024 7:28 AM EDT CAD Cabg, Arterial, Single (88224) Yes 02/17/2024 7:28 AM EDT CAD Endoscopy W/Video-Asst Vein [place], Cabg (32487) Yes 02/17/2024 7:28 AM EDT CAD POCT [...] MD CHEMISTRY ORDERABLE S [facility] [place] [address] * (ABNORMAL) Basic Metabolic Panel (non-fasting) (02/23/2024 [...] Carpio MD CHEMISTRY ORDERABLES [facility] [place] [address] * Potassium (02/22/2024 4:30 AM EDT) Potassium [...] MD CHEMISTRY ORDERABLE S [facility] [place] [address] * (ABNORMAL) Basic Metabolic Panel (non-fasting) (02/21/2024 [...] Carpio MD CHEMISTRY ORDERABLES [facility] [place] [address] * Lactate, whole blood, send to lab ([facility]) (02/21/2024 9:45 AM EDT) [facility] Lactate WB 2.0 0.5 - 2.2 mmol/L [facility] Blood 02/21/2024 9:45 AM EDT 02/21/2024 9:52 AM EDT Narrative Resulting Agency Comment Spec In Lab Hayder Graham MD CHEMISTRY ORDERABLE S Performing Organization Address [facility] Co de Phone Number [facility] [place] [address] * (ABNORMAL) Hepatic Function Panel (02/21/2024 9:45 AM EDT) [facility] Protein, Total 5.7(L) 6.1 - 8.0 [...] MD CHEMISTRY ORDERABLE S [facility] [place] [address] * Lipase (02/21/2024 9:45 AM EDT) Lipase 56 0 - 60 unit/L [facility] Blood 02/21/2024 9:45 AM EDT 02/21/2024 9:52 AM EDT Narrative Resulting Agency Comment Spec In Lab Hayder Graham MD CHEMISTRY ORDERABLE S [facility] [place] [address] * Amylase (02/21/2024 9:45 AM EDT) Amylase 69 28 - 100 unit/L [facility] Blood 02/21/2024 9:45 AM EDT 02/21/2024 9:52 AM EDT Narrative Resulting Agency Comment Spec In Lab Hayder Graham MD CHEMISTRY ORDERABLE S Performing Organization Address City/[facility]/ZIP Co de Phone Number [facility] [place] [address] * Potassium (02/21/2024 3:08 AM EDT) Potassium [...] MD CHEMISTRY ORDERABLE S [facility] [place] [address] * XR Chest PA & Lateral (Generic) (02/20/2024 10:19 AM EDT) WORKSTATION ID [id number] RAD Anatomical Region Laterality Modality Chest N/A Digital Radiogra phy Impressions 02/20/2024 1:11 PM EDT Small pleural effusions. No pneumothorax Thank you for letting us participate in the care of this patient. ??If you are a health care provider and have any questions regarding this report, please contact the number below. ??For patients who have questions please contact the health school childcare attendant that requested your imaging first. ? Electronically signed by: Rogerio Cruz MD, [facility] ??([phone]), at 02/20/2024 1:11 PM Narrative 02/20/2024 1:11 PM EDT EXAMINATION: XR CHEST PA AND LATERAL (GENERIC) CLINICAL HISTORY: s/p AVR/CABGx3 TECHNIQUE: PA and lateral views of the chest COMPARISON: 02/17/2024 FINDINGS: Support devices: Interval removal of [place] catheter, endotracheal tube and mediastinal chest tubes The cardiac silhouette is stable status post median sternotomy, CABG and aortic valve replacement. There are small pleural effusions. No pneumothorax. Procedure Note Rogerio Cruz MD - 02/20/2024 EXAMINATION: XR CHEST PA AND LATERAL (GENERIC) CLINICAL HISTORY: s/p AVR/CABGx3 TECHNIQUE: PA and lateral views of the chest COMPARISON: 02/17/2024 FINDINGS: Support devices: Interval removal of [place]ail[place] catheter, endotracheal tubeand mediastinal chest tubes The [...] patients who have questions please contactthe health school childcare attendant that requested your imaging first. Electronically signed by: Rogerio Cruz MD, [facility]([phone]), at 02/20/2024 1:11 PM Hayder Graham MD IMG DX ORDERABLES * Scan, Peripheral Blood (02/20/2024 4:23 AM EDT) Pathologist [facility] Plat estimate Decreased [facility] RBC Morphology Normal [facility] Blood 02/20/2024 4:23 AM EDT 02/20/2024 4:42 AM EDT Narrative Resulting Agency Comment Spec In Lab Minnie FRENCH HEMATOLOGY CECILIO ALEMAN [facility] [place] [phone] * (ABNORMAL) Differential, Automated (02/20/2024 4:23 AM EDT) [facility] Neutrophil % 81.7 % [facility] Neutrophil Absolute 10.37(H) 1.70 - 6.10 x10(3)/mc L [facility] Lymph % 7.4 % [facility] Lymphocytes Abs 0.9 0.9 - 3.2 x10(3)/mc L [facility] Monocyte % 9.7 % [facility] Monocyte Abs 1.2(H) 0.3 - 0.9 x10(3)/mc L [facility] Eos % 0.1 % [facility] Eosinophils Abs 0.0 0.0 - 0.4 x10(3)/mc L [facility] Basophil % 0.2 % [facility] Baso [...] FRENCH HEMATOLOGY CECILIO ALEMAN [facility] [place] [address] * (ABNORMAL) Hemogram (02/20/2024 4:23 AM EDT) [...] [facility] NRBC% auto 0.0 % [facility] NRBC Absolute 0.000 0.000 - 0.000 x10(3)/mc L [facility] Blood 02/20/2024 4:23 AM EDT 02/20/2024 4:42 AM EDT Narrative Resulting Agency Comment Spec In Lab Minnie FRENCH HEMATOLOGY CECILIO ALEMAN [facility] [place] [address] * (ABNORMAL) Basic Metabolic Panel (non-fasting) (02/20/2024 4:23 AM EDT) Glucose 113 65 - 199 mg/dL [facility] Comment:Diabetes: >=200 mg/d L plus symptoms Blood Urea Nitrogen 20 10 - 20 mg/dL [facility] Comment:result rechecked-[place] Creatinine 0.71(L) 0.80 - 1.50 mg/dL [facility] [...] S Performing Organization Address [facility] Co de Phone Number [facility] [place] [address] * Potassium (02/19/2024 3:57 AM EDT) Potassium [...] S Performing Organization Address [facility]/ZIP Co de Phone Number [facility] [place] [address] * POCT Glucose (02/18/2024 8:24 AM EDT) Glucose, POC 157 65 - 199 mg/dL [facility] Comment: Supplemental ranges: <140 mg/dL before meals <180 mg/dL all other times of the day Blood 02/18/2024 8:24 AM EDT 02/18/2024 8:24 AM EDT Hayder Graham MD POINT OF CARE TEST ORDERABLES Performing Organization Address City/[facility]/ZIP Co de Phone Number [facility] [place] [address] * Scan, Peripheral Blood (02/18/2024 1:40 AM EDT) Plat estimate Decreased [facility] RBC Morphology Normal [facility] Blood 02/18/2024 1:40 AM EDT 02/18/2024 1:56 AM EDT Narrative Resulting Agency Comment Spec In Lab Neftali FRENCH HEMATOLOGY ORDER OLE Performing Organization Address City/[facility] Co de Phone Number [facility] [place] [address] * (ABNORMAL) Differential, Automated (02/18/2024 1:40 AM EDT) [facility] Neutrophil % 87.1 % [facility] Neutrophil Absolute 15.03(H) 1.70 - 6.10 x10(3)/mc L [facility] Lymph % 3.0 % [facility] Lymphocytes Abs 0.5(L) 0.9 - 3.2 x10(3)/mc L [facility] Monocyte % 9.1 % [facility] Monocyte Abs 1.6(H) 0.3 - 0.9 x10(3)/mc L [facility] Eos % 0.0 % [facility] Eosinophils Abs 0.0 0.0 - 0.4 x10(3)/mc L [facility] Basophil % 0.2 % [facility] Baso [...] FRENCH HEMATOLOGY ORDER OLE [facility] [place] [address] * (ABNORMAL) Hemogram (02/18/2024 1:40 AM EDT) [...] Standard Deviation 39.9 36.0 - 45.0 [facility] RDW coefficient of variation 13.2 11.4 - 13.8 % [facility] Mean Platelet Volume 9.9 7.6 - 12.9 fL [facility] NRBC% auto 0.0 % [facility] NRBC Absolute 0.000 0.000 - 0.000 x10(3)/mc L [facility] Blood 02/18/2024 1:40 AM EDT 02/18/2024 1:56 AM EDT Narrative Resulting Agency Comment Spec In Lab Neftali FRENCH HEMATOLOGY ORDER OLE [facility] [place] [address] * (ABNORMAL) Basic Metabolic Panel (non-fasting) (02/18/2024 [...] MD CHEMISTRY ORDERABLE S [facility] [place] [address] * (ABNORMAL) Troponin (02/18/2024 1:40 AM EDT) Pathologist [facility] Troponin-T, High Sensitivity 342(H) <=22 ng/L [facility] [...] value can be found in the [facility] Test Catalog Troponin - [facility] Test Catalog Reference: Fourth [place] Definition of Myocardial Infarction. Journal of the [employer] 2018;72:4328-3870 Blood 02/18/2024 1:40 AM EDT 02/18/2024 1:56 AM EDT Narrative Resulting Agency Comment Spec In Lab Hayder Graham MD CHEMISTRY ORDERABLE S Performing Organization Address [facility] Co de Phone Number [facility] [place] [address] * POCT Glucose (02/17/2024 8:13 PM EDT) Glucose, POC 142 65 - 199 mg/dL [facility] Comment: Supplemental ranges: <140 mg/dL before meals <180 mg/dL all other times of the day Blood 02/17/2024 8:13 PM EDT 02/17/2024 8:13 PM EDT Hayder Graham MD POINT OF CARE TEST ORDERABLES Performing Organization Address [facility] de Phone Number [facility] [place] [address] * POCT Glucose (02/17/2024 5:42 PM EDT) Glucose, POC 160 65 - 199 mg/dL [facility] Comment: Supplemental ranges: <140 mg/dL before meals <180 mg/dL all other times of the day Blood 02/17/2024 5:42 PM EDT 02/17/2024 5:42 PM EDT Hayder Graham MD POINT OF CARE TEST ORDERABLES Performing Organization Address [facility] Co de Phone Number [facility] [place] [address] * Hemoglobin (02/17/2024 5:42 PM EDT) Hemoglobin 13.7 13.7 - 16.5 g/dL [facility] Blood 02/17/2024 5:42 PM EDT 02/17/2024 6:10 PM EDT Narrative Resulting Agency Comment Spec In Lab Hayder Graham MD HEMATOLOGY ORDERABL ES Performing Organization Address [facility]/ZIP Co de Phone Number [facility] [place] [address] * Potassium (02/17/2024 5:42 PM EDT) Pathologist [facility] Potassium 4.3 3.5 - 5.0 mmol/L [facility] [...] S Performing Organization Address [facility] Co de Phone Number [facility] [place] [address] * (ABNORMAL) BLOOD GAS 2 ARTERIAL (02/17/2024 [...] [facility] FIO2 Art 40 % [facility] PF Ratio Art 195 [facility] Blood 02/17/2024 4:18 PM EDT 02/17/2024 4:18 PM EDT Hayder Graham MD POINT OF CARE TEST ORDERABLES Performing Organization Address City/State/[facility] Co de Phone Number [facility] [place] [address] * XR Chest One View (02/17/2024 1:44 PM EDT) [employer] WORKSTATION ID [id number] RAD Anatomical Region Laterality Modality Chest N/A Digital Radiogra phy Impressions 02/17/2024 2:12 PM EDT 1. ??No definite pleural fluid collection or pneumothorax. 2. ??Right IJ [place] catheter tip terminates in a descending branch of the right pulmonary artery. Suggest catheter retraction. 3. ??Additional support lines and tubes as above. Thank you for letting us participate in the care of this patient. ??If you are a health care provider and have any questions regarding this report, please contact the number below. ??For patients who have questions please contact the health school childcare attendant that requested your imaging first. ? Electronically signed by: Denzel Hankins MD, [facility] ??([phone]), at 02/17/2024 2:12 PM Narrative 02/17/2024 2:12 PM EDT EXAMINATION: XR CHEST ONE VIEW CLINICAL HISTORY: s/p avr/cabg eval effusions TECHNIQUE: 1 view of the chest COMPARISON: Chest x-ray 01/09/2024, chest CT 02/03/2024 FINDINGS: ET tube tip terminates 5.2 cm above the carlos. Right IJ [place] catheter tip terminates in a descending branch [...] 5.2 cm above the carlos. Right IJ [place]-Ganzcatheter tip terminates in a descending branch of [...] fluid collection or pneumothorax. 2. Right IJ [place] catheter tip terminates in a descending branch ofthe right pulmonary artery. Suggest catheter retraction. 3. Additional support lines and tubes as above. Thank you for letting us participate in the care of this patient. If youare a health care provider and have any questions regarding this report,please contact the number below. For patients who have questions please contactthe health school childcare attendant that requested your imaging first. Electronically signed by: Denzel Hankins MD, [facility]([phone]), at 02/17/2024 2:12 PM Hayder Graham MD [...] [facility] FIO2 Art 100 % [facility] PF Ratio Art 320 [facility] Blood 02/17/2024 1:31 PM EDT 02/17/2024 1:31 PM EDT Hayder Graham MD POINT OF CARE TEST ORDERABLES [facility] [place] [address] * (ABNORMAL) Coox2 (02/17/2024 1:21 PM EDT) [...] CARE TEST ORDERABLES [facility] [place] [address] * (ABNORMAL) BLOOD GAS 2 ARTERIAL (02/17/2024 [...] ORDERABLES Performing Organization Address [facility] Co de Phone Number [facility] [place] [address] * (ABNORMAL) Fibrinogen (02/17/2024 12:10 PM EDT) [...] S Performing Organization Address [facility] Co de Phone Number [facility] [place] [address] * (ABNORMAL) Thrombin time (02/17/2024 12:10 PM [...] S Performing Organization Address [facility] Co de Phone Number [facility] [place] [address] * APTT (02/17/2024 12:10 PM EDT) Partial [...] S Performing Organization Address [facility]/ZIP Co de Phone Number [facility] [place] [address] * (ABNORMAL) Prothrombin Time (02/17/2024 12:10 PM [...] MD HEMATOLOGY ORDERABLE S [facility] [place] [address] * (ABNORMAL) Hemogram (02/17/2024 12:10 PM EDT) [...] [facility] NRBC% auto 0.0 % [facility] NRBC Absolute 0.000 0.000 - 0.000 x10(3)/mc L [facility] Blood 02/17/2024 12:1 0 PM EDT 02/17/2024 12:19 PM EDT Narrative Resulting Agency Comment Spec In Lab Tara York MD HEMATOLOGY ORDERABLE S [facility] [place] [address] * (ABNORMAL) BLOOD GAS 2 ARTERIAL (02/17/2024 [...] mmol/L [facility] Comment: Noted by woodwind instruments inspector. Please note: Patients with WBC >100,000 [...] OF CARE TEST ORDERABLES [facility] [place] [address] * (ABNORMAL) BLOOD GAS 2 ARTERIAL (02/17/2024 [...] mmol/L [facility] Comment: Noted by woodwind instruments inspector. Please note: Patients with WBC >100,000 [...] ORDERABLES Performing Organization Address [facility]/ZIP Co de Phone Number [facility] [place] [address] * (ABNORMAL) Hemoglobin and Hematocrit, blood (02/17/2024 11:04 AM EDT) Pathologist [facility] Hemoglobin 9.6(L) 13.7 - 16.5 g/dL [facility] [...] MD HEMATOLOGY ORDERABL ES Performing Organization Address City/[facility]/ZIP Co de Phone Number [facility] [place] [address] * (ABNORMAL) Platelet count (02/17/2024 11:04 AM EDT) Pathologist [facility] Platelet 106(L) 145 - 357 x10(3)/mc L [facility] Immature Plt % 1.6 0.0 - 7.4 % [facility] Comment: Limitation of the Immature Platelet Fraction (IPF)-May be less reliable when the platelet count is less than 99o133/uL due to statistical imprecision. The IPF value [...] in a decreased state of production. References: [employer] The Clinical Value of the Immature Platelet Fraction (IPF) in Cell Recovery Document Number 10-1143 03/2011 [employer] The Role of the Immature Platelet Fraction (IPF) in the Differential Diagnosis of Thrombocytopenia, Document [id number] V002/15/14 P014 Blood 02/17/2024 11:0 4 AM EDT 02/17/2024 11:12 AM EDT Narrative Resulting Agency Comment Spec In Lab Hayder Graham MD HEMATOLOGY ORDERABL ES Performing Organization Address City/State/[facility] Co de Phone Number [facility] [place] [address] * (ABNORMAL) Fibrinogen (02/17/2024 11:04 AM EDT) [...] MD HEMATOLOGY ORDERABL ES [facility] [place] [address] * (ABNORMAL) BLOOD GAS 2 ARTERIAL (02/17/2024 [...] OF CARE TEST ORDERABLES [facility] [place] [address] * (ABNORMAL) BLOOD GAS 2 ARTERIAL (02/17/2024 [...] OF CARE TEST ORDERABLES [facility] [place] [address] * Surgical Pathology Report (02/17/2024 10:01 AM EDT) Final Diagnosis [id number] ? Location: [facility]; [facility]; The signing pathologist has (i) examined the relevant preparation(s) for the specimen(s) and (ii) rendered or confirmed the diagnosis(es). . ?Surgical Pathology DIAGNOSIS Aortic valve leaflets, excision: Valve leaflets with myxoid degeneration, nodular fibrosis and dystrophic calcifications. Electronically signed by: ?Lindsay FERNANDEZ, Livier Gonzalez Verified: ??02/24/2024 13:49 ??Pathologist Performed at: ??-[facility] Dept. of Pathology, [place] [address] Chemical Plant Technical Director: Job Brewer MD, FCAP, ??CLIA Certificate: [id number] SPECIMEN(S) SUBMITTED A - Aortic Valve Leaflets, [...] Sections Processing Blocks submitted for decalcification: A1. [employer] sections in 1 cassette labeled A1. ??ajw 02/24/2024 1:49 PM EDT [facility] AORTIC STRUCTURE / Unknown 02/17/2024 10:01 AM EDT 02/17/2024 10:01 AM EDT Hayder Graham MD PATHOLOGY/CYTOLOGY ORDERABLES Performing Organization Address City/[facility]/ZIP Co de Phone Number [facility] [place] [address] * Specimen to Pathology (02/17/2024 10:01 AM EDT) AP Specimen 02/17/2024 10:0 1 AM EDT 02/17/2024 10:01 AM EDT Narrative [facility] - 02/17/2024 10:01 AM EDT Specimen requisition ordered. ??Separate Pathology report to follow Hayder Graham MD PATHOLOGY/CYTOLOGY ORDERABLES Performing Organization Address City/[facility]/ZIP Co de Phone Number [facility] [place] [address] * (ABNORMAL) BLOOD GAS 2 ARTERIAL (02/17/2024 [...] OF CARE TEST ORDERABLES [facility] [place] [address] * (ABNORMAL) BLOOD GAS 2 VENOUS (02/17/2024 9:34 AM EDT) pH, Venous 7.22(Criti marquez) 7.32 - 7.42 [facility] Comment:Noted by woodwind instruments inspector. PCO2, Venous 43 41 - 51 mmHg [facility] Comment:Noted by woodwind instruments inspector. PO2, Venous 57(H) 25 - 40 mmHg [facility] Comment:Noted by woodwind instruments inspector. Bicarbonate, Venous 17.1 mmol/L [facility] Comment:Noted by woodwind instruments inspector. Base Excess, Venous -10.6 mmol/L [facility] Comment:Noted by woodwind instruments inspector. Hgb Blood Gas 11.2(L) 13.7 - 16.5 g/dL [facility] Comment:Noted by woodwind instruments inspector. Oxyhemoglobin, Venous 86.5 % [facility] Comment:Noted by woodwind instruments inspector. Carboxyhemoglob in, Venous 0.3 % [facility] Comment: Noted by woodwind instruments inspector. Nonsmokers: 0.5-1.5% COHB Smokers: Variable, but usually less than 10% Toxic: 20-30% COHB Lethal: Greater than 60% COHB Methemoglobin, Venous 0.0 <=1.5 % [facility] Comment:Noted by woodwind instruments inspector. Na Whole Blood 156(H) 135 - 145 mmol/L [facility] Comment:Noted by woodwind instruments inspector. K Whole Blood 5.5(H) 3.5 - 5.0 mmol/L [facility] Comment: Noted by woodwind instruments inspector. Please note: Patients with WBC >100,000 may have falsely elevated Potassium levels. Contact the Clinical Chemistry Laboratory if there are any questions. ICa Whole Blood 1.03(L) 1.15 - 1.33 mmol/L [facility] Comment: Noted by woodwind instruments inspector. Note: ??Total bilirubin higher than 20 mg/dL may lead to falsely low ionized calcium. CL Whole Blood 100 98 - 107 mmol/L [facility] Comment:Noted by woodwind instruments inspector. Gluc Whole Bld 132 65 - 199 mg/dL [facility] Comment: Noted by woodwind instruments inspector. Diabetes: >=200 mg/dL plus symptoms Lactate WB 1.0 0.5 - 2.2 mmol/L [facility] Comment:Noted by woodwind instruments inspector. Blood Gas Source Venous [facility] Blood 02/17/2024 9:34 AM EDT 02/17/2024 9:34 AM EDT Hayder Graham MD POINT OF CARE TEST ORDERABLES [facility] [place] [address] * (ABNORMAL) BLOOD GAS 2 ARTERIAL (02/17/2024 [...] ORDERABLES Performing Organization Address [facility] Co de Phone Number [facility] [place] [address] * POCT Glucose (02/17/2024 6:38 AM EDT) Glucose, POC 98 65 - 199 mg/dL [facility] Comment: Supplemental ranges: <140 mg/dL before meals <180 mg/dL all other times of the day Blood 02/17/2024 6:38 AM EDT 02/17/2024 6:38 AM EDT Hayder Graham MD POINT OF CARE TEST ORDERABLES Performing Organization Address [facility] Co de Phone Number [facility] [place] [address] * Transesophageal Echo/OR (02/17/2024 6:33 AM EDT) [...] [facility]-operative [facility] cardiac [...] 1, Routine 2055 (Not Given - Provider: Ploo Britton RN - Reason: Patient/family refused) 2100 [...] Routine documented in this encounter Care Teams Investigation Division Captain Relationship Specialty Start Date End Date Aparna Jordan APRN PCP - General Family Medicine 10/21/23 05/26/24 documented as of this encounter
--- OUTSIDE RECORDS SUMMARY | 2024-06-24 08:32 | XMS_ITS | Encounter Summary ---
[place] [address] Care Team Providers Care Project Estimator Name Role Phone Aparna Jordan MAURI Primary Care Provider [phone] Reason for Referral * Diagnostic Test (Routine) - New Request Specialty Diagnoses / Procedures Referred By Contac t Referred To Contact Cardiology Diagnoses S/P AVR Procedures Echocardiogram Transthoracic Neftali Menon PA [facility] CARDIOTHORACIC [place] [address] [facility] [place] [address] Referral ID Status Reason Start Date Expiration Date Visits Requested Visits Authorized [id number] New Request Specialty Service Requested 02/24/2024 02/23/2025 1 1 * Consultation (Routine) - Authorized Specialty Diagnoses / Procedures Referred By Contac t Referred To Contact Cardiology Diagnoses S/P AVR Hayder Graham MD [facility] CARDIOTHORACIC [place] [address] Cardiac Rehab, [facility] [address] [place] [address] [place] [address] Referral ID Status Reason Start Date Expiration Date Visits Requested Visits Authorized [id number] Authorized Consult, Test & Treat 02/24/2024 08/22/2024 36 36 * Home Health Care (Routine) - Authorized Specialty Diagnoses / Procedures Referred By Sixto mendoza Referred To Contact Diagnoses S/P AVR Hayder Graham MD [facility] CARDIOTHORACIC [place] [address] Referral ID Status Reason Start Date Expiration Date Visits Requested Visits Authorized [id number] Authorized Consult, Test & Treat 02/24/2024 08/22/2024 [...] ARTERIAL GRAFT (WRVU 7.93) Hayder Graham MD [facility] CARDIOTHORACIC [place] [address] [facility] Referral ID Status Reason Start Date Expiration Date Visits Re quested Visits Authorized [id number] 1 1 Encounter Details Date Type Department Care Team (Latest Contact Info) Description 02/17/2024 5:43 AM EDT - 02/24/2024 11:23 AM EDT Hospital Encounter Heart and Vascular Unit Level 4 [place] [address] Hayder Graham MD [facility] CARDIOTHORACIC [place] [address] S/P AVR (Primary Dx); Aortic valve stenosis, [...] Patient Age: 63 y.o. Birthdate: 1960 Language: Romanian Race: White Ethnicity: Not nor Admit Date: 02/17/2024 Discharge Date: 02/24/24 Attending Physician: Hayder Graham MD Follow-up Recommendations for Providers: Please continue routine management of cardiovascular risk factors including blood pressure, lipids,glucose, etc. Please note any changes to medications. Patient to follow up with PCP, Aparna Jordan APRN, in 1-2 weeks. Patient to follow up with Commercial Analyst, Neftali Ernandez MD , in 2 weeks. Patient to follow up with Cardiac Surgeon, Dr. Hayder Graham, with a chest x-ray, EKG, and Echo. 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 Past Surgical History: Procedure Laterality Date PRO CABG, ARTERIAL, SINGLE N/A 02/17/2024 @CABG, USING ARTERIAL GRAFT;SINGLE ARTERIAL GRAFT (WRVU 33.75) performed by Hayder Graham MD at [facility] MAIN OR PRO CABG, ARTERY-VEIN, TWO N/A 02/17/2024 @CABG, TWO VENOUS GRAFTS & ARTERIAL GRAFT (WRVU 7.93) performed by Hayder Graham MD at [facility] MAIN OR PRO ENDOSCOPY W/VIDEO-ASST VEIN HARVEST, CABG Left 02/17/2024 ENDOSCOPIC HARVEST VEIN(S) FOR CABG (WRVU 0.31) performed by Hayder Graham MD at [facility] MAIN OR PRO REPLACEMENT PROSTHETIC AORTIC VALVE OPEN W CARDIOPULMONARY BYPASS HOMOGRF/STENT N/A 02/17/2024 @REPLACE AORTIC VALVE, OPEN, W\CPB, W\PROSTHETIC VALVE (WRVU 41.32) performed by Hayder Graham MD at [facility] MAIN OR Prior To Admission Medications [...] insufficiency. He has glaucoma. He used to Divvyshot until about 15 years ago. He has undergone prior herniorrhaphy. 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 Major Procedures/Operations: 02/17/24 s/p avr/cabgx3 CABG x 3 JOSE->LAD SVG->dRCA SVG->OM1 EVH from LLE AVR with a 23 mm Inspiris Bioprosthesis Hospital Course: Karlos Garcia was admitted to [facility] on 02/17/2024 via the Same Day [...] Hayder Graham and/or the Cardiac Surgery Physician Assistant To The Dean Team may be reached at . Antibiotic [...] Please refer to the card with the [place] [employer] Guidelines for more information. You [...] Dr. Hayder Graham. You may use a [place] Track or treadmill but avoid any pulling [...] friends, go to a movie, go to moravian, etc. Heavy activities: No hunting, skiing, jogging, [...] should resume a low fat, low cholesterol, [place] Heart [employer] Diet. Driving: No driving until [...] while being managed by your PCP and/or Commercial Analyst. For future medication refills, please refer to your PCP and/or Commercial Analyst after your discharge from our service. Thank you REMOVE CHEST TUBE SUTURES ON OR AFTER 03/02/24 Home oxygen therapy: N/A Follow up appointments: You should follow up with your PCP, Aparna Jordan APRN, in 1-2 weeks. Our office will schedule an appointment with your Commercial Analyst, Neftali Ernandez MD , in 2 weeks. You have an appointment with your Cardiac Surgeon, Dr. Hayder Graham, 4 weeks with a chest x-ray, EKG, and Echo before your appointment. Cardiac Rehabilitation: Karlos Garcia was seen regarding participation in the outpatient Phase 2Cardiac Rehabilitation at [facility]. The patient agrees to a referral to this program. The referral will be sent at discharge and the patient should be contacted by the Program within 1- 2 weeks from discharge. Future Appointments and Orders Future Orders Complete By Expires Echocardiogram Transthoracic [04483 CPT(R)] 03/26/2024 09/25/2024 Process Instructions: Scheduling Instructions: Questions: Where will study be performed?: [facility] Does the patient have Congenital Heart Disease?: Does patient require sedation?: Sedation rationale: XR Chest PA & Lateral (Generic) [98333 87338 Custom] 03/26/2024 09/25/2024 Process Instructions: Scheduling Instructions: Questions: Portable exam?: Reason for exam and clinical history: s/p avr/cabg Clinical information / jerome questions for radiologist: Stat read required?: Date of injury if applicable: Requested Time: Where will study be performed?: [facility] Radiology Referral to Cardiac Rehab [LCA039 Custom] As directed Process Instructions: If no progress note charted, please enter Clinical details in comments. Scheduling Instructions: Questions: My question or request is: s/p AVR/CABG. Cardiac rehab at [facility]. Referral to Home Health [REF34 Custom] As directed Process Instructions: If no progress note charted, please enter Clinical details in comments. Scheduling Instructions: Comments: Please evaluate Karlos Garcia for admission to Home Health. [address] Phone Number: Date of : 1960 Inpatient DOCUMENTATION FOR VNA SERVICES (INCLUDING THOSE PATIENTS WITH MEDICARE COVERAGE REQUIRING HOME VNA SERVICES AND/OR HOSPICE SERVICES) PATIENT'S LOCATION: Karlos Garcia [address] [employer] [phone] Sky Cap's Name: self/family In discussion with the attending physician, it is certified that this patient is under their care and that they, or a Nurse Practitioner, or Physician Assistant To The Dean who is working directly with them, hada [...] for services as follows: HOME HEALTH AGENCY: [facility] [address] [place] [address] RN orders: Cardiopulmonary assessment, incisional assessment, assess [...] issues please call the Cardiology Office at [phone] FOR MEDICARE ONLY: (please delete this section [...] APRN [address] / [place] [address] . All VNA agencies which cover the area of patient's residence have been reviewed, either verbally or in writing, and patient/family have chosen the home health care agency noted. Questions: Disciplines Requested: Nursing Physical Therapy Arrangements for VNA/home care: As above. Signed: NEFTALI MENON PA-C [facility] Section of Cardiac Surgery [facility] [place] [address] FAX [phone] Date: 02/24/2024 CC: Aparna Jordan, MAURI Jordan, Aparna Sherman APRN [address] [place] [address] documented in this encounter Discharge Instructions * [...] Hayder Graham and/or the Cardiac Surgery Physician Assistant To The Dean Team may be reached at . Antibiotic [...] Please refer to the card with the [place] Heart Association Guidelines for more information. You [...] Dr. Hayder Graham. You may use a [place] Track or treadmill but avoid any pulling [...] friends, go to a movie, go to moravian, etc. Heavy activities: No hunting, skiing, jogging, [...] should resume a low fat, low cholesterol, [place] Heart Association Diet. Driving: No driving until [...] while being managed by your PCP and/or Commercial Analyst. For future medication refills, please refer to your PCP and/or Commercial Analyst after your discharge from our service. Thank you REMOVE CHEST TUBE SUTURES ON OR AFTER 03/02/24 Home oxygen therapy: N/A Follow up appointments: You should follow up with your PCP, Aparna Jordan APRN, in 1-2 weeks. Our office will schedule an appointment with your Commercial Analyst, Neftali Ernandez MD , in 2 weeks. You have an appointment with your Cardiac Surgeon, Dr. Hayder Graham, 4 weeks with a chest x-ray, EKG, and Echo before your appointment. Cardiac Rehabilitation: Karlos Garcia was seen regarding participation in the outpatient Phase 2Cardiac Rehabilitation at [facility]. The patient agrees to a referral [...] 0600 and on the weekends please page [phone]. * Eric Barahona PA - 02/23/2024 9:27 [...] 0600 and on the weekends please page [phone]. * Tiffanie Owens - 02/22/2024 2:48 PM [...] d/c for 10 days. 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 * Kelley Hinson, PLATER APPRENTICE - 02/21/2024 10:15 AM EDT Physical Therapy [...] d/c for 10 days. 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 * Kelley Hinson PTA - 02/20/2024 3:32 PM EDT 02/20/24 6379 Evaluation & Treatment Document Type contact Total Minutes, Physical Therapy 0 Comment, Session Not Performed Checked in w/ pt this PM for ongoing PT services, pt politely declined, stating he had been dealing w/ nausea all day, made plan to see him tomorrow morning, will f/u at that time Kelley Hinson PTA Pager: [phone] Physical Therapy Inpatient Rehab Department * Louisa [...] 0600 and on the weekends please page [phone]. * Maris Benavides, PT - 02/19/2024 11:22 [...] d/c for 10 days. 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 Precautions/Special Considerations: STERNAL [...] outlined inthis evaluation. MARIS BENAVIDES, PT Pager: [phone] Physical Therapy Inpatient Rehabilitation Department Time IN / OUT: 4555-6944 Total Time: 38 (eval) minutes; * Antonio [...] 0600 and on the weekends please page [phone]. * Minnie Begum PA - 02/18/2024 8:25 [...] 0600 and on the weekends please page [phone]. * Kim Ha RCP - 02/17/2024 2:25 [...] plan since last visit. Hayder Graham MD [phone] Source Note - Hayder Graham MD - [...] insufficiency. He has glaucoma. He used to Divvyshot until about 15 years ago. He has [...] given written informed consent. Hayder Graham MD [phone] * Hayder Graham MD - 02/17/2024 7:00 [...] given written informed consent. Hayder Graham MD [phone] documented in this encounter Miscellaneous Notes * [...] information for follow-up Home Health & Hospice, [address] [place] [address] Cardiac Rehab, [address] [place] [address] Transportation: family or friend will provide Functional status prior to admission: Independent Home Environment: Others in the home: alone. Current Living Arrangements: home/apartment/condo. Accessibility Concerns:a few steps to enter 1 floor home. Current Functional Ability: Assistive Person and Equipment DME used at home: none DME Needed at Discharge: N/A Patient is insured through: Primary Insurance: [facility] Payor: [facility] / Plan: [facility] PPO / Product Type: *No Product [...] pain managed with scheduled Tylenol. Worked with [employer]. Ambulated in the roque multiple times during [...] anticipated Patient is insured through: Primary Insurance: [facility] Payor: [employer] / Plan: [facility] PPO / Product Type: *No Product type* / Secondary Insurance: N/A Last Physical Therapy Recommendation: home with home health (Str coming to stay for a week or two upon d/c) with to be determined (owns rolling walker, shower seat) Plan for discharge is: Home w/ Services Outpatient Agency/Support Group Needs: Homecare agency Home Health Services: Physical Therapy, Registered Nurse Agency Referrals: [facility]. [address] [place] [address] Transportation: family or friend will provide Barriers to discharge: Discharge planning Plan going forward: Service Care Management will continue to follow and assist with discharge planning and coordination of care as indicated. Anticipated Date of Discharge: 02/22/2024 Rhett Bell RN RN/CM - Cellphone: [phone] Pager: [phone] Covering Service RN/CM * Plan of Care [...] Yang RN - 02/19/2024 10:44 AM EDT [facility] Karlos Garcia was seen today regarding participation in the outpatient Phase 2 Cardiac Rehabilitation at [facility]. 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 (Only good for 180 days) Any patient receiving care in [place] must abide by [place] law. The hierarchy for surrogate decision making [...] (i) The agent with financial power of aws architect or a conservator appointed in accordance with [...] steady place to sleep or slept in [facility] (including now)?: No In the past 12 months has the [employer], gas, oil, or water [employer] threatened to shut off services in [...] as: [address] [facility] [address] Physical address: [address] [facility], [address] Social & Family Supports: All names listed [...] Information: none noted Health/Prescription Coverage: Primary Insurance: [facility] Payor: [facility] / Plan: [facility] PPO / Product Type: *No Product type* / Secondary Insurance: N/A ; Prescription Coverage: Yes Preferred Pharmacy: [id number] AT [address] [address] Status: Patient is a : No Primary Care Provider confirmed: Aparna Jordan, BULLET CASTING OPERATOR [phone] Patient/Caregiver Goals of Treatment: dc to home Potential Needs for Transition of Care: home health care Agency Referrals: I have met with the patient to: discuss discharge planning needs. provide the [facility], Office of Care Management letter from the Superintendent Division pertaining to rehab referrals. provide a letter describing our affiliations within the [facility] and educate about their right to choose where referrals are sent. provide a list of Home Health Agencies / Durable Medical Equipment vendors which serve their preferred geographic area. provided patient with [facility] Star Quality Rating handout. They have requested referrals to: [facility] [address] [place] [address] Note routed to a Analytical Clerk who will communicate referrals to facilities and [...] Reina Greene RN CM, BSN, CMGT- Ext [phone] * Plan of Care - Binta Trinidad [...] Operative Note Patient Name: Karlos Garcia : [id number] MR#: [id number] Case Date: 02/17/2024 Surgeon: Surgeon(s) and Role: * Hayder Graham MD - Primary * Neftali Menon PA - Physician Assistant To The Dean Preoperative diagnosis: CAD Postoperative diagnosis: CAD, intraoperative [...] mL Drains: Mediastinal and Left pleural Disposition: [facility] Condition: doing well without problems Attestation: Case Date: 02/17/2024 I performed this procedure without the involvement of a resident. HAYDER GRAHAM MD 02/17/2024 * Op Note - Hayder Graham MD - 02/17/2024 8:20 AM EDT [facility] Operative Note Patient Name: Karlos Garcia : [id number] MR#: [id number] Case Date: 02/17/2024 Surgeon: Surgeons and Role: * Hayder Graham MD - Primary * Neftali Menon PA - Physician Assistant To The Dean Preoperative diagnosis: CAD Postoperative diagnosis: CAD, intraoperative [...] mL Drains: Mediastinal and Left pleural Disposition: [facility] Procedure Description: The patient was [...] PM EST Office Visit Cardiology at [address] [place] [address] Neftali Ernandez MD [facility] [address] Scheduled Orders Name Type Priority Associated Diagnoses [...] Aortic Valve Open W Cardiopulmonary Bypass Homogrf/Stent (26005) Yes 02/17/2024 7:28 AM EDT CAD Cabg, Artery-Vein, Two (83858) Yes 02/17/2024 7:28 AM EDT CAD Cabg, Arterial, Single (73761) Yes 02/17/2024 7:28 AM EDT CAD Endoscopy W/Video-Asst Vein [place], Cabg (17484) Yes 02/17/2024 7:28 AM EDT CAD POCT [...] CHEMISTRY ORDERABLE S [facility] [place] [address] * (ABNORMAL) Basic Metabolic Panel (non-fasting) (02/23/2024 [...] MD CHEMISTRY ORDERABLES [facility] [place] [address] * Potassium (02/22/2024 4:30 AM EDT) Potassium [...] CHEMISTRY ORDERABLE S [facility] [place] [address] * (ABNORMAL) Basic Metabolic Panel (non-fasting) (02/21/2024 [...] Carpio MD CHEMISTRY ORDERABLES Performing Organization Address City/[facility]/ZIP Co de Phone Number [facility] [place] [address] * Lactate, whole blood, send to lab ([facility]) (02/21/2024 9:45 AM EDT) [facility] Lactate WB 2.0 0.5 - 2.2 mmol/L [facility] Blood 02/21/2024 9:45 AM EDT 02/21/2024 9:52 AM EDT Narrative Resulting Agency Comment Spec In Lab Hayder Graham MD CHEMISTRY ORDERABLE S Performing Organization Address City/[facility]/ZIP Co de Phone Number [facility] [place] [address] * (ABNORMAL) Hepatic Function Panel (02/21/2024 9:45 AM EDT) [facility] Protein, Total 5.7(L) 6.1 - 8.0 [...] City/[facility]/ZIP Co de Phone Number [facility] [place] [address] * Lipase (02/21/2024 9:45 AM EDT) Lipase 56 0 - 60 unit/L [facility] Blood 02/21/2024 9:45 AM EDT 02/21/2024 9:52 AM EDT Narrative Resulting Agency Comment Spec In Lab Hayder Graham MD CHEMISTRY ORDERABLE S Performing Organization Address [facility] Co de Phone Number [facility] [place] [address] * Amylase (02/21/2024 9:45 AM EDT) Amylase 69 28 - 100 unit/L [facility] Blood 02/21/2024 9:45 AM EDT 02/21/2024 9:52 AM EDT Narrative Resulting Agency Comment Spec In Lab Hayder Graham MD CHEMISTRY ORDERABLE S Performing Organization Address [facility] Co de Phone Number [facility] [place] [address] * Potassium (02/21/2024 3:08 AM EDT) Potassium [...] CHEMISTRY ORDERABLE S [facility] [place] [address] * XR Chest PA & Lateral (Generic) (02/20/2024 10:19 AM EDT) WORKSTATION ID [id number] RAD Anatomical Region Laterality Modality Chest N/A Digital Radiogra phy Impressions 02/20/2024 1:11 PM EDT Small pleural effusions. No pneumothorax Thank you for letting us participate in the care of this patient. ??If you are a health care provider and have any questions regarding this report, please contact the number below. ??For patients who have questions please contact the health adult care provider that requested your imaging first. ? Electronically signed by: Rogerio Cruz MD, [facility] ??([phone]), at 02/20/2024 1:11 PM Narrative 02/20/2024 1:11 PM EDT EXAMINATION: XR CHEST PA AND LATERAL (GENERIC) CLINICAL HISTORY: s/p AVR/CABGx3 TECHNIQUE: PA and lateral views of the chest COMPARISON: 02/17/2024 FINDINGS: Support devices: Interval removal of [place]a catheter, endotracheal tube and mediastinal chest tubes The cardiac silhouette is stable status post median sternotomy, CABG and aortic valve replacement. There are small pleural effusions. No pneumothorax. Procedure Note Rogerio Cruz MD - 02/20/2024 EXAMINATION: XR CHEST PA AND LATERAL (GENERIC) CLINICAL HISTORY: s/p AVR/CABGx3 TECHNIQUE: PA and lateral views of the chest COMPARISON: 02/17/2024 FINDINGS: Support devices: Interval removal of [place]a catheter, endotracheal tubeand mediastinal chest tubes The [...] have questions please contactthe health adult care provider that requested your imaging first. Hayder Graham MD IMG DX ORDERABLES * Scan, Peripheral Blood (02/20/2024 4:23 AM EDT) Pathologist [facility] Plat estimate Decreased [facility] RBC Morphology Normal [facility] Blood 02/20/2024 4:23 AM EDT 02/20/2024 4:42 AM EDT Narrative Resulting Agency Comment Spec In Lab Minnie [facility] HEMATOLOG[facility] CECILIO ALEMAN Performing Organization Address City/State/[facility] Co de Phone Number [facility] [place] [address] * (ABNORMAL) Differential, Automated (02/20/2024 4:23 AM EDT) [facility] Neutrophil % 81.7 % [facility] Neutrophil Absolute 10.37(H) 1.70 - 6.10 x10(3)/mc L [facility] Lymph % 7.4 % [facility] Lymphocytes Abs 0.9 0.9 - 3.2 x10(3)/mc L [facility] Monocyte % 9.7 % [facility] Monocyte Abs 1.2(H) 0.3 - 0.9 x10(3)/mc L [facility] Eos % 0.1 % [facility] Eosinophils Abs 0.0 0.0 - 0.4 x10(3)/[facility] Basophil % 0.2 % [facility] Baso Absolute 0.0 0.0 - 0.1 x10(3)/[facility] Immature Gran % 0.90 % [facility] Comment: Immature granulocytes(IG's)percentage and absolute count will include metamyelocytes, myelocytes, and promyelocytes. Blood smears from CBCs yielding IG's will be scanned manually for concordance. If this scan disagrees with the automated IG or if promyelocytes are noted, a manual differential will be performed. Immature Gran Absolute 0.12(H) 0.00 - 0.04 x10(3)/[facility] Blood 02/20/2024 4:23 AM EDT 02/20/2024 4:42 AM EDT Narrative Resulting Agency Comment Spec In Lab Minnie FRENCH HEMATOLOGY CECILIO ALEMAN [facility] [place] [address] * (ABNORMAL) Hemogram (02/20/2024 4:23 AM EDT) White Blood Cell 12.7(H) 4.0 - 9.5 x10(3)/[facility] LABORATORY Red Blood Cell 4.26(L) 4.58 - 5.54 x10(6)/[facility] LABORATORY Hemoglobin 12.3(L) 13.7 - 16.5 g/dL [...] [facility] NRBC% auto 0.0 % [facility] NRBC Absolute 0.000 0.000 - 0.000 x10(3)/mc L [facility] Blood 02/20/2024 4:23 AM EDT 02/20/2024 4:42 AM EDT Narrative Resulting Agency Comment Spec In Lab Minnie FRENCH HEMATOLOGY CECILIO ALEMAN [facility] [place] [address] * (ABNORMAL) Basic Metabolic Panel (non-fasting) (02/20/2024 [...] MD CHEMISTRY ORDERABLE S Performing Organization Address [facility] Co de Phone Number [facility] [place] [address] * Potassium (02/19/2024 3:57 AM EDT) [facility] Potassium 4.3 3.5 - 5.0 mmol/L [facility] [...] MD CHEMISTRY ORDERABLE S Performing Organization Address [facility]/ZIP Co de Phone Number [facility] [place] [address] * POCT Glucose (02/18/2024 8:24 AM EDT) Glucose, POC 157 65 - 199 mg/dL [facility] Comment: Supplemental ranges: <140 mg/dL before meals <180 mg/dL all other times of the day Blood 02/18/2024 8:24 AM EDT 02/18/2024 8:24 AM EDT Hayder Graham MD POINT OF CARE TEST ORDERABLES Performing Organization Address City/[facility]/ZIP Co de Phone Number [facility] [place] [address] * Scan, Peripheral Blood (02/18/2024 1:40 AM EDT) [facility] Plat estimate Decreased [facility] RBC Morphology Normal [facility] Blood 02/18/2024 1:40 AM EDT 02/18/2024 1:56 AM EDT Narrative Resulting Agency Comment Spec In Lab Neftali FRENCH HEMATOLOGY ORDER OLE Performing Organization Address City/[facility]/ZIP Co de Phone Number [facility] [place] [address] * (ABNORMAL) Differential, Automated (02/18/2024 1:40 AM EDT) [facility] Neutrophil % 87.1 % [facility] Neutrophil Absolute 15.03(H) 1.70 - 6.10 x10(3)/mc L [facility] Lymph % 3.0 % [facility] Lymphocytes Abs 0.5(L) 0.9 - 3.2 x10(3)/mc L [facility] Monocyte % 9.1 % [facility] Monocyte Abs 1.6(H) 0.3 - 0.9 x10(3)/mc L [facility] Eos % 0.0 % [facility] Eosinophils Abs 0.0 0.0 - 0.4 x10(3)/mc L [facility] Basophil % 0.2 % [facility] [...] HEMATOLOGY ORDER OLE [facility] [place] [address] * (ABNORMAL) Hemogram (02/18/2024 1:40 AM EDT) [...] MEDICAL CENTER LABORATORY NRBC% auto 0.0 % [facility] NRBC Absolute 0.000 0.000 - 0.000 x10(3)/mc L [facility] Blood 02/18/2024 1:40 AM EDT 02/18/2024 1:56 AM EDT Narrative Resulting Agency Comment Spec In Lab Neftali FRENCH HEMATOLOGY ORDER OLE [facility] [place] [address] * (ABNORMAL) Basic Metabolic Panel (non-fasting) (02/18/2024 [...] CHEMISTRY ORDERABLE S [facility] [place] [address] * (ABNORMAL) Troponin (02/18/2024 1:40 AM EDT) [...] value can be found in the [facility] Laboratory Test Catalog Troponin - [facility] Laboratory Test Catalog Reference: Fourth Corry Definition of Myocardial Infarction. Journal of the [place] [employer] 2018;72:9575-3741 Blood 02/18/2024 1:40 AM EDT 02/18/2024 1:56 AM EDT Narrative Resulting Agency Comment Spec In Lab Hayder Graham MD CHEMISTRY ORDERABLE S [facility] [place] [address] * POCT Glucose (02/17/2024 8:13 PM EDT) Glucose, POC 142 65 - 199 mg/dL [facility] Comment: Supplemental ranges: <140 mg/dL before meals <180 mg/dL all other times of the day Blood 02/17/2024 8:13 PM EDT 02/17/2024 8:13 PM EDT Hayder Graham MD POINT OF CARE TEST ORDERABLES Performing Organization Address [facility]/ZIP Co de Phone Number [facility] [place] [address] * POCT Glucose (02/17/2024 5:42 PM EDT) Glucose, POC 160 65 - 199 mg/dL [facility] Comment: Supplemental ranges: <140 mg/dL before meals <180 mg/dL all other times of the day Blood 02/17/2024 5:42 PM EDT 02/17/2024 5:42 PM EDT Hayder Graham MD POINT OF CARE TEST ORDERABLES Performing Organization Address City/[facility]/ZIP Co de Phone Number [facility] [place] [address] * Hemoglobin (02/17/2024 5:42 PM EDT) Hemoglobin 13.7 13.7 - 16.5 g/dL [facility] Blood 02/17/2024 5:42 PM EDT 02/17/2024 6:10 PM EDT Narrative Resulting Agency Comment Spec In Lab Hayder Graham MD HEMATOLOGY ORDERABL ES Performing Organization Address [facility] Co de Phone Number [facility] [place] [address] * Potassium (02/17/2024 5:42 PM EDT) Potassium [...] MD CHEMISTRY ORDERABLE S Performing Organization Address [facility] de Phone Number [facility] [place] [address] * (ABNORMAL) BLOOD GAS 2 ARTERIAL (02/17/2024 [...] MEDICAL CENTER LABORATORY FIO2 Art 40 % [facility] PF Ratio Art 195 [facility] Blood 02/17/2024 4:18 PM EDT 02/17/2024 4:18 PM EDT Hayder Graham MD POINT OF CARE TEST ORDERABLES Performing Organization Address City/State/[facility] Co de Phone Number [facility] [place] [address] * XR Chest One View (02/17/2024 1:44 PM EDT) WORKSTATION ID [id number] RAD Anatomical Region Laterality Modality Chest N/A Digital Radiogra phy Impressions 02/17/2024 2:12 PM EDT 1. ??No definite pleural fluid collection or pneumothorax. 2. ??Right IJ [place]-Kaila catheter tip terminates in a descending branch [...] questions please contact the health adult care provider that requested your imaging first. ? Electronically signed by: Denzel Hankins MD, [facility] ??([phone]), at 02/17/2024 2:12 PM Narrative 02/17/2024 2:12 PM EDT EXAMINATION: XR CHEST ONE VIEW CLINICAL HISTORY: s/p avr/cabg eval effusions TECHNIQUE: 1 view of the chest COMPARISON: Chest x-ray 01/09/2024, chest CT 02/03/2024 FINDINGS: ET tube tip terminates 5.2 cm above the carlos. Right IJ [place]-Kaila catheter tip terminates in a descending branch [...] 5.2 cm above the carlos. Right IJ [place]-Ganzcatheter tip terminates in a descending branch of [...] fluid collection or pneumothorax. 2. Right IJ [place]-Kaila catheter tip terminates in a descending branch ofthe right pulmonary artery. Suggest catheter retraction. 3. Additional support lines and tubes as above. Thank you for letting us participate in the care of this patient. If youare a health care provider and have any questions regarding this report,please contact the number below. For patients who have questions please contactthe health adult care provider that requested your imaging first. Electronically signed by: Denzel Hankins MD, [facility]([phone]), at 02/17/2024 2:12 PM Hayder Graham MD [...] MEDICAL CENTER LABORATORY FIO2 Art 100 % [facility] PF Ratio Art 320 [facility] Blood 02/17/2024 1:31 PM EDT 02/17/2024 1:31 PM EDT Hayder Graham MD POINT OF CARE TEST ORDERABLES Performing Organization Address City/State/[facility] Co de Phone Number [facility] [place] [address] * (ABNORMAL) Coox2 (02/17/2024 1:21 PM EDT) [...] CARE TEST ORDERABLES [facility] [place] [address] * (ABNORMAL) BLOOD GAS 2 ARTERIAL (02/17/2024 [...] TEST ORDERABLES Performing Organization Address [facility] de Phone Number [facility] [place] [address] * (ABNORMAL) Fibrinogen (02/17/2024 12:10 PM EDT) [...] MD HEMATOLOGY ORDERABLE S Performing Organization Address [facility] Co de Phone Number [facility] [place] [address] * (ABNORMAL) Thrombin time (02/17/2024 12:10 PM [...] MD HEMATOLOGY ORDERABLE S Performing Organization Address [facility] de Phone Number [facility] [place] [address] * APTT (02/17/2024 12:10 PM EDT) Partial [...] MD HEMATOLOGY ORDERABLE S Performing Organization Address [facility] de Phone Number [facility] [place] [address] * (ABNORMAL) Prothrombin Time (02/17/2024 12:10 PM [...] HEMATOLOGY ORDERABLE S [facility] [place] [address] * (ABNORMAL) Hemogram (02/17/2024 12:10 PM EDT) [...] MEDICAL CENTER LABORATORY NRBC% auto 0.0 % [facility] NRBC Absolute 0.000 0.000 - 0.000 x10(3)/mc L [facility] Blood 02/17/2024 12:1 0 PM EDT 02/17/2024 12:19 PM EDT Narrative Resulting Agency Comment Spec In Lab Tara York MD HEMATOLOGY ORDERABLE S [facility] [address] [place] [address] * (ABNORMAL) BLOOD GAS 2 ARTERIAL (02/17/2024 [...] [facility] Comment: Noted by telephone instrument supervisor. Please note: Patients with WBC [...] CARE TEST ORDERABLES [facility] [place] [address] * (ABNORMAL) BLOOD GAS 2 ARTERIAL (02/17/2024 [...] [facility] Comment: Noted by telephone instrument supervisor. Please note: Patients with WBC [...] OF CARE TEST ORDERABLES Performing Organization Address City/[facility]/ZIP [place] [address] * (ABNORMAL) Hemoglobin and Hematocrit, blood (02/17/2024 [...] HEMATOLOGY ORDERABL ES [facility] [place] [address] * (ABNORMAL) Platelet count (02/17/2024 11:04 AM EDT) Platelet 106(L) 145 - 357 x10(3)/mc L [facility] Immature Plt % 1.6 0.0 - 7.4 % [facility] Comment: Limitation of the Immature Platelet Fraction (IPF)-May be less reliable when the platelet count is less than 07c534/uL due to statistical imprecision. The IPF value [...] in a decreased state of production. References: [employer] The Clinical Value of the Immature Platelet Fraction (IPF) in Cell Recovery Document Number [id number] 03/2011 [employer] The Role of the Immature Platelet Fraction (IPF) in the Differential Diagnosis of Thrombocytopenia, Document [id number] V002/15/14 P014 Blood 02/17/2024 11:0 4 AM EDT 02/17/2024 11:12 AM EDT Narrative Resulting Agency Comment Spec In Lab Hayder Graham MD HEMATOLOGY ORDERABL ES [facility] [place] [address] * (ABNORMAL) Fibrinogen (02/17/2024 11:04 AM EDT) Pathologist [facility] Fibrinogen 149(L) 200 - 393 mg/dL [facility] [...] HEMATOLOGY ORDERABL ES [facility] [place] [address] * (ABNORMAL) BLOOD GAS 2 ARTERIAL (02/17/2024 [...] OF CARE TEST ORDERABLES Performing Organization Address City/State/[facility] Co de Phone Number [facility] [place] [address] * (ABNORMAL) BLOOD GAS 2 ARTERIAL (02/17/2024 [...] OF CARE TEST ORDERABLES Performing Organization Address City/State/[facility] Co de Phone Number [facility] [place] [address] * Surgical Pathology Report (02/17/2024 10:01 AM EDT) Final Diagnosis [id number] ? Location: [facility]; [facility]; The signing pathologist has (i) examined the relevant preparation(s) for the specimen(s) and (ii) rendered or confirmed the diagnosis(es). . ?Surgical Pathology DIAGNOSIS Aortic valve leaflets, excision: Valve leaflets with myxoid degeneration, nodular fibrosis and dystrophic calcifications. Electronically signed by: ?Livier Montoya MD Verified: ??02/24/2024 13:49 ??Pathologist Performed at: ??-[facility] Dept. of [place]ology, [place] [address] Superintendent Division: Job Brewer MD, FCAP, ??CLIA Certificate: [id number] SPECIMEN(S) SUBMITTED A - Aortic Valve Leaflets, [...] Sections Processing Blocks submitted for decalcification: A1. Wellness Spa Manager sections in 1 cassette labeled A1. ??ajw 02/24/2024 1:49 PM EDT [facility] AORTIC STRUCTURE / Unknown 02/17/2024 10:01 AM EDT 02/17/2024 10:01 AM EDT Hayder Graham MD PATHOLOGY/CYTOLOGY ORDERABLES Performing Organization Address City/[facility]/ZIP Co de Phone Number [facility] [place] [address] * Specimen to Pathology (02/17/2024 10:01 AM EDT) AP Specimen 02/17/2024 10:0 1 AM EDT 02/17/2024 10:01 AM EDT Narrative [facility] - 02/17/2024 10:01 AM EDT Specimen requisition ordered. ??Separate Pathology report to follow Hayder Graham MD PATHOLOGY/CYTOLOGY ORDERABLES Performing Organization Address [facility]/ZIP Co de Phone Number [facility] [place] [address] * (ABNORMAL) BLOOD GAS 2 ARTERIAL (02/17/2024 [...] CARE TEST ORDERABLES [facility] [place] [address] * (ABNORMAL) BLOOD GAS 2 VENOUS (02/17/2024 9:34 AM EDT) pH, Venous 7.22(Criti marquez) 7.32 - 7.42 [facility] Comment:Noted by telephone instrument supervisor. PCO2, Venous 43 41 - 51 mmHg [facility] Comment:Noted by telephone instrument supervisor. PO2, Venous 57(H) 25 - 40 mmHg [facility] Comment:Noted by telephone instrument supervisor. Bicarbonate, Venous 17.1 mmol/L [facility] Comment:Noted by telephone instrument supervisor. Base Excess, Venous -10.6 mmol/L [facility] Comment:Noted by telephone instrument supervisor. Hgb Blood Gas 11.2(L) 13.7 - 16.5 g/dL [facility] Comment:Noted by telephone instrument supervisor. Oxyhemoglobin, Venous 86.5 % [facility] Comment:Noted by telephone instrument supervisor. Carboxyhemoglob in, Venous 0.3 % [facility] Comment: Noted by telephone instrument supervisor. Nonsmokers: 0.5-1.5% COHB Smokers: Variable, but usually less than 10% Toxic: 20-30% COHB Lethal: Greater than 60% COHB Methemoglobin, Venous 0.0 <=1.5 % [facility] Comment:Noted by telephone instrument supervisor. Na Whole Blood 156(H) 135 - 145 mmol/L [facility] Comment:Noted by telephone instrument supervisor. K Whole Blood 5.5(H) 3.5 - 5.0 mmol/L [facility] Comment: Noted by telephone instrument supervisor. Please note: Patients with WBC >100,000 may have falsely elevated Potassium levels. Contact the Clinical Chemistry Laboratory if there are any questions. ICa Whole Blood 1.03(L) 1.15 - 1.33 mmol/L [facility] Comment: Noted by telephone instrument supervisor. Note: ??Total bilirubin higher than 20 mg/dL may lead to falsely low ionized calcium. CL Whole Blood 100 98 - 107 mmol/L [facility] Comment:Noted by telephone instrument supervisor. Gluc Whole Bld 132 65 - 199 mg/dL [facility] Comment: Noted by telephone instrument supervisor. Diabetes: >=200 mg/dL plus symptoms Lactate WB 1.0 0.5 - 2.2 mmol/L [facility] Comment:Noted by telephone instrument supervisor. Blood Gas Source Venous [facility] Blood 02/17/2024 9:34 AM EDT 02/17/2024 9:34 AM EDT Hayder Graham MD POINT OF CARE TEST ORDERABLES [facility] [place] [address] * (ABNORMAL) BLOOD GAS 2 ARTERIAL (02/17/2024 [...] OF CARE TEST ORDERABLES Performing Organization Address [facility] Co de Phone Number [facility] [place] [address] * POCT Glucose (02/17/2024 6:38 AM EDT) Glucose, POC 98 65 - 199 mg/dL [facility] Comment: Supplemental ranges: <140 mg/dL before meals <180 mg/dL all other times of the day Blood 02/17/2024 6:38 AM EDT 02/17/2024 6:38 AM EDT Hayder Graham MD POINT OF CARE TEST ORDERABLES Performing Organization Address [facility] Co de Phone Number [facility] [place] [address] * Transesophageal Echo/OR (02/17/2024 6:33 AM EDT) [...] left ventricular ejection fraction is 58% by Herrno's biplane. There are no segmental wall motion [...] transes[facility]-operative [facility] of [...] 6 hours upon arrival to Unit. Give DE if unable to take PO, Routine Given [...] dose on Sat02/17/24 at 1400, Until Discontinued, [place] teeth and / or gums. Scan the CHG vial in the [employer] Q-Care Oral Care Kit from floor stock. Ventilator-associated pneumonia prophylaxis For use in ICU/Critical care locations ONLY. Obtain kit from Floor Stock location. Scan CHG vial in the [employer] Q-Care Oral Care Kit, Routine Given 02/17/2024 [...] at 50% of previous rate. Call household worker if goal not achieved at maximum [...] PHENYLephrine and/or vasopressin ineffective. Call pager # [phone] if initiated. Titrate to keep systolic blood [...] L/min/M2. Maximum volume 2 L. Call household worker for additional fluid orders: pager #[phone]. Rate/Dose Verify 02/18/2024 8:00 AM EDT 1 mL/hr 1 mL/hr Rate/Dose Verify 02/18/2024 6:00 AM EDT 1 mL/hr 1 mL/hr Rate/Dose Verify 02/18/2024 4:00 AM EDT 1 mL/hr 1 mL/hr sodium chloride 0.9% infusion 10-30 mL/hr, Intravenous, DAILY PRN, Starting on Sat02/17/24 at 1307, Until Sat02/18/24 at 0835, Side port TKO rate, per [facility] nursing protocol. Rate/Dose Verify 02/17/2024 8:00 PM EDT 30 mL/hr 30 mL/hr Rate/Dose Verify 02/17/2024 6:00 PM EDT 30 mL/hr 30 mL/h r Rate/Dose Verify 02/17/2024 5:00 PM EDT 30 mL/hr 30 mL/h r sodium chloride 0.9% infusion 10-30 mL/hr, Intravenous, DAILY PRN, Starting on Sat02/17/24 at 1307, Until Sat02/18/24 at 0835, Side port TKO rate, per [facility] nrusing protocol. Rate/Dose Verify 02/18/2024 8:00 AM [...] Routine documented in this encounter Care Teams Project Estimator Relationship Specialty Start Date End Date Aparna Jordan APRN PCP - General Family Medicine 10/21/23 05/26/24 documented as of this encounter
--- OUTSIDE RECORDS SUMMARY | 2024-06-24 08:32 | XMS_ITS | Encounter Summary ---
Author Organization [facility] [place] [address] Care Team Providers Care Steam Presser Name Role Phone Vanessa Christian MAURI Primary Care Provider [phone] Reason for Visit * Auth/Cert (Routine) Specialty [...] ARTERIAL GRAFT (WRVU 7.93) Zak Farmer MD [facility] CARDIOTHORACIC [place] [address] [facility] Referral ID Status Reason Start Date Expiration Date Visits Re quested Visits Authorized [id number] 1 1 Encounter Details Date Type Department Care Team (Late st Contact Info) Description 02/17/2024 7:35 AM EDT Anesthesia Event Main Operating Room [facility] [address] [place] [phone] Roman York MD [facility] ANESTHESIOLOGY [place] [address] Anesthesia Record Procedure Summary Procedure Name Responsible [...] by Sadiq Woo RN PIV 02/17/24; 0715; [id number] catheter system; 18 gauge; cephalic vein (lateral [...] = 0.6 oz pur e alcohol) rare [facility] Utilities Answer Date Recorded In the past 12 months has th e electric, gas, oil, or water [employer] threatened to shut off services in your [...] Summary Date: 02/17/24 Room / Location: [facility] OR [address] [place] [address] MAIN OR Anesthesia Start: 734 Anesthesia Stop: [...] shown include unfiled device data. Patient Location: [facility] Level of Consciousness: Sedated (Pharmacologic/Intentional) Pain Management: PONV: Cardiovascular Status: Hypotension (received treatment) Respiratory Status: Intubated/Ventilated Postoperative Fluid Status: Intravascular EUvolemia Possible Anesthetic Complications: NONE apparent at time of evaluation Final Primary Anesthesia Type: General (The anesthetic type performed was the same as planned.) Comments: * Anesthesia Preprocedure Evaluation - Roman Yrok MD - 02/17/2024 4:28 AM EDT Pre-Anesthesia [...] 08/14/2023 ??? Nevus of face 09/26/2023 Right adventist No past surgical history on file. Social [...] PM EST Office Visit Cardiology at [address] [place] [address] Neftali Ernandez MD [facility] [place] [address] documented as of this encounter [...] mg documented in this encounter Care Teams Steam Presser Relationship Specialty Start Date End Date Vanessa Christian APRN PCP - General Family Medicine 10/21/23 05/26/24 documented as of this encounter
--- OUTSIDE RECORDS SUMMARY | 2024-06-24 08:33 | XMS_ITS | Encounter Summary ---
Author Organization [facility] [place] [address] Care Team Providers Care Primary Care Coordinator Name Role Phone Vanessa Christian APRN Primary Care Provider [phone] Encounter Details Date Type Department Care Team [...] PM EST Office Visit Cardiology at [address] [place] [phone] Neftali Ernandez MD [facility] [place] [address] documented as of this encounter Visit Diagnoses Not on filedocumented in this encounter Care Teams Primary Care Coordinator Relationship Specialty Start Date End Date Vanessa Christian APRN PCP - General Family Medicine 10/21/23 05/26/24 documented as of this encounter
--- OUTSIDE RECORDS SUMMARY | 2024-06-24 08:33 | XMS_ITS | Encounter Summary ---
[place] [address] Care Team Providers Care Clock And Watch Assembler Name Role Phone Victor M Lafleur MD Primary Care Provider [phone] Reason for Visit * Reason Onset Date Comments Referral 09/20/2023 Encounter Details Date Type Department Care Team (Late st Contact Info) Description 09/20/2023 Telephone Cardiology at [address] [address] Karen Billy, bacteriologist industrial Social History Tobacco Use Types Packs/Day Years Used Date Smoking Tobacco: Never Assessed Sex and Gender Information Value Date Recorded Sex Assigned at Not on file Gender Identity Not on file Sexual Orientation Not on file documented as of this encounter Miscellaneous Notes * Telephone Encounter - Karen Billy RN - 09/26/2023 9:32 AM EST Karols was referred to cardiology. Severe aortic stenosis, [...] PM EST Office Visit Cardiology at [address] [place] [address] Neftali Ernandez MD [facility] [place] [address] documented as of this encounter Visit Diagnoses Not on filedocumented in this encounter Care Teams Clock And Watch Assembler Relationship Specialty Start Date End Date Victor M Lafleur MD PCP - General 10/02/13 10/20/23 documented as of this encounter
--- OUTSIDE RECORDS SUMMARY | 2024-06-24 08:33 | XMS_ITS | Encounter Summary ---
Author Organization Formerly [facility] [place] [address] Care Team Providers Care Outreach Associate Name Role Phone Vanessa Christian MAURI Primary Care Provider [phone] Reason for Visit * Auth/Cert (Routine) Specialty [...] Dickinson MD [facility] [place] [address] [facility] Referral ID Status Reason Start Date Expiration Date Visits Re quested Visits Authorized [id number] 1 1 Encounter Details Date Type Department Care Team (Latest Contact Info) Description 02/03/2024 8:06 AM EDT - 02/03/2024 2:54 PM EDT Hospital [place] [address] Rima Dickinson MD [facility] [place] [address] Screening for cardiovascular condition; Aortic valve stenosis, [...] lbs Follow-up Visits Follow up with your inspector machine parts in 2-4 weeks Access Site 'Black and Blue' and tenderness is expected during the first week Call if you noted a mass (lump) greater than the size of a ellis Call Office with any Questions and if you have any of the following Clarence Lane M.D Interventional Grade Setter Inbound Sales Consultant #: [phone] * Attachments The following attachments cannot be sent through Care Everywhere. * CAD (Coronary Artery Disease): General Info (Uzbek) * Coronary Angiogram: Post-op (Uzbek) documented in this encounter Medications at Time [...] - 02/03/2024 11:48 AM EDT [facility] Interventional Cardiology Adult Pre-Procedure H&P Update: Cardiac Catheterization Karlos Anthony [id number] 1960 Chief Complaint: Aortic stenosis HPI: Mr. [...] is inthe chart Clarence Lane MD Interventional Grade Setter 02/03/24 11:48 AM documented in this encounter Miscellaneous Notes * Brief Op Note - Clarence Lane MD - 02/03/2024 12:51 PM EDT Preliminary Cardiac Catheterization Procedure Note: Patient Name: Karlos Anthony : [id number] MR#: [id number] Case Date: 02/03/2024 Inbound Sales Consultant: Surgeon(s) and Role: * Saira Lua MD [...] PM EST Office Visit Cardiology at [address] [address] Neftali Ernandez MD [facility] [place] [address] Scheduled Orders Name Type Priority Associated Diagnoses [...] Modality Other Narrative 02/12/2024 3:47 PM EDT ?[facility] ? Cardiac Catheterization/Intervention Report ? Patient Name: Patenaude, Karlos ? Procedure Date: 02/03/2024 ? A #: [id number] ? Primary Physician: Saira Lua ? Case #: [id number] ? File Name: [id number] ? Catheterization Order Number: [id number] ? [facility] ? Final Report [place], [place] ? Patient Name: ? Karlos Patenaude ? ID#: ?[id number] ? : ?1960 ? Procedure Date: ? [...] Procedure Note Saira Lua MD - 02/12/2024 [facility] Cardiac Catheterization/Intervention Report Patient Name: Karlos Anthony Procedure Date: 02/03/2024 A #: [id number] Primary Physician: Saira Lua Case #: [id number] File Name: [id number] Catheterization Order Number: [id number] [facility] FinalReport [place], [place] Patient Name: Karlos Anthony ID#:[id number] :1960 Procedure Date: February 03, 2024 Case [...] was designated as ASA Class III. The [facility] clinical frailty scale is 3: [...] (Bezet) 372 ms MUSE SYSTEM Calculated P [place] 59 degrees MUSE SYSTEM Calculated R [place] 34 degrees MUSE SYSTEM Calculated T [place] 63 degrees MUSE SYSTEM INTERPRETATION Sinus bradycardia [...] MD) documented in this encounter Care Teams Outreach Associate Relationship Specialty Start Date End Date Vanessa Christian APRN PCP - General Family Medicine 10/21/23 05/26/24 documented as of this encounter
--- OUTSIDE RECORDS SUMMARY | 2024-06-24 08:33 | XMS_ITS | Encounter Summary ---
Author Organization [facility] Address [facility] [place] [address] Care Team Providers Care Lay Out Maker Name Role Phone Vanessa Christian MAUIR Primary Care Provider [phone] Reason for Visit * Consultation (Routine) - Closed Specialty Diagnoses / Procedures Referred By Contac t Referred To Contact Cardiac Surgery Diagnoses Nonrheumatic aortic valve stenosis significant - TAVR ( defers to Card Surg d/t age) Neftali Ernandez MD [facility] [place] [address] Zak Farmer MD [facility] [place] [address] Referral ID Status Reason Start Date Expiration Date V isits Requested Visits Authorized [id number] Closed Consult, Test & Treat 10/21/2023 10/20/2024 1 1 Encounter Details Date Type Department Care Team (Late st Contact Info) Description 01/09/2024 1:40 PM EDT Office [place] [address] Zak Farmer MD [facility] [place] [address] Nonrheumatic aortic valve stenosis Social [...] office. Best personal regards, Zak Farmer MD [phone] In aggregate 55 minutes were spent evaluating [...] PM EST Office Visit Cardiology at [address] [place] [id number] Neftali Ernandez MD [facility] [place] [address] documented as of this encounter Results * [...] management coordinator that requested your imaging first. Zak Farmer MD IMG DX ORDERABLES * Basic Metabolic Panel (non-fasting) (01/09/2024 2:58 PM EDT) Glucose 102 65 - 199 mg/dL [facility] Comment:Diabetes: >=200 mg/d L plus symptoms Blood Urea Nitrogen 15 10 - 20 mg/dL [facility] Creatinine 0.94 0.80 - 1.50 mg/dL [facility] Sodium 137 135 - 145 mmol/L [facility] Potassium 4.5 3.5 - 5.0 mmol/L [facility] Comment: Please note: ??Patients with WBC >100,000 may have falsely elevated Potassium levels. ??For accurate Potassium quantification in these patients send serum separator tube (gold top) for subsequent determinations. ??Contact the Clinical Chemistry Laboratory if there are any questions. Chloride 103 98 - 107 mmol/L [facility] Carbon Dioxide 27 22 - 31 mmol/L [facility] Anion Gap 7 5 - 15 mmol/L [facility] Calcium 9.5 8.5 - 10.5 mg/dL [facility] Est Glomerular Filtration Rate 91 >=60 mL/min/1. 73 m?? [facility] [...] Lab Zak Farmer MD CHEMISTRY ORDERABLE S [facility] [place] [address] * Hepatic Function Panel (01/09/2024 2:58 PM EDT) Pathologist [facility] Protein, Total 6.7 6.1 - 8.0 g/dL [facility] Albumin 4.5 3.2 - 5.2 g/dL [facility] Aspartate Aminotransferase 21 0 - 39 unit/L [facility] Alanine Aminotransferase 21 0 - 55 unit/L [facility] Alkaline Phosphatase 81 40 - 130 unit/L [facility] Bilirubin, Total 0.7 0.2 - 1.3 mg/dL [facility] Bilirubin, Direct 0.2 0.0 - 0.3 mg/dL [facility] Blood 01/09/2024 2:58 PM EDT 01/09/2024 3:03 PM EDT Narrative Resulting Agency Comment Spec In Lab Zak Farmer MD CHEMISTRY ORDERABLE S Performing Organization Address [facility] Co de Phone Number [facility] [place] [address] * Prothrombin Time (01/09/2024 2:58 PM EDT) [facility] Prothrombin Time 10.6 9.4 - 12.5 sec [facility] International Normalization Ratio 0.9 [facility] Comment: An INR <2.0 indicates [...] MD HEMATOLOGY ORDERABL ES Performing Organization Address [facility]/ZIP Co de Phone Number [facility] [place] [address] * Type and Screen Future Surgery, [facility] SAME DAY PROGRAM ONLY) (01/09/2024 2:58 PM EDT) ABORH Type O NEGATIVE [facility] Patient BB History Not Found [facility] Expires at [id number] on: 02-20-2024 [facility] Ab Screen Interp Negative [facility] Blood 01/09/2024 2:58 PM EDT 01/09/2024 2:58 PM EDT Narrative Resulting Agency Comment Spec In Lab Zak aFrmer MD BLOOD BANK LAB [facility]EC[facility]IO ALE[facility] Organization Address City/State/ZIP Co de Phone Number [facility] [place] [address] documented in this encounter Visit Diagnoses Diagnosis Nonrheumatic aortic valve stenosis Aortic valve disorders Nonrheumatic aortic valve stenosis Aortic valve disorders documented in this encounter Care Teams Lay Out Maker Relationship Specialty Start Date End Date Vanessa Christian APRN PCP - General Family Medicine 10/21/23 05/26/24 documented as of this encounter
--- OUTSIDE RECORDS SUMMARY | 2024-06-24 08:33 | XMS_ITS | Encounter Summary ---
Author Organization [facility] Address [facility] [place] [address] Care Team Providers Care Food And Beverage Lead Name Role Phone Vanessa Christian MAURI Primary Care Provider [phone] Encounter Details Date Type Department Care Team (Latest Contact Info) Description 01/09/2024 3:02 PM EDT - 01/09/2024 11:59 PM EDT Hospital Encounter XRay at [address] [place] [address] Zak Farmer MD [facility] [place] [address] Nonrheumatic aortic valve stenosis Discharge Disposition: Home [...] PM EST Office Visit Cardiology at [address] [place] [address] Neftali Ernandez MD [facility] [place] [address] documented as of this encounter Procedures Procedure [...] who have questions please contact the health client care consultant that requested your imaging first. ? Electronically signed by: Toby Dave MD, [facility] ([phone]), at 01/09/2024 3:11 PM Narrative 01/09/2024 3:11 [...] patients who have questions please contactthe health client care consultant that requested your imaging first. Electronically signed by: Toby Dave MD, [facility]([phone]), at 01/09/2024 3:11 PM Zak Farmer MD IMG DX ORDERABLES documented in this encounter Visit Diagnoses Diagnosis Nonrheumatic aortic valve stenosis Aortic valve disorders documented in this encounter Care Teams Food And Beverage Lead Relationship Specialty Start Date End Date Vanessa Christian APRN PCP - General Family Medicine 10/21/23 05/26/24 documented as of this encounter
--- OUTSIDE RECORDS SUMMARY | 2024-06-24 08:33 | XMS_ITS | Data Portability ---
Author Organization [place] - [facility] Address [address] [place] [address] Care Team Providers Care Finishing Wire Sawyer Name Role Phone VANESSA JORDAN Primary Care Provider Assessment No assessment recorded. Plan of Treatment Reminders Order Date Submit Date Provider Last Modified By Organization Details Last Modified Time Details Appointments None recorded . Lab magnesiu m, serum or plasma 024 12/18/19 24 [facility] (Registration ), [address] [place] [address] [place], [address], 4 14:25:25 BMP, serum or plasma 024 12/18/19 24 [email or web address] [facility] (Registration ), [address] [place] [address] [place], [address], 4 14:25:24 Referral None recorded . Procedures None recorded . Surgeries None recorded . Imaging None recorded . Medication Orders None recorded . Patient TargetsNo targets recorded. Patient Instructions Encounter Date Encounter Id Patient Instructions Last Modified By Organization Details Last Modified Time 09/19/2023 [id number] SCHEDULE FOLLOW UP IN 3 MONTHS IF YOU DONT HEAR FROM THE CARDIOLOGY DEPT THIS WEEK CALL [facility] AND LET THEM KNOW IF YOUR BREATHING GETS WORSE- GO TO THE ER, DONT OVER DO THINGS PHYSICALLY EXPECT A CALL FROM SARA ZAFAR RE: UPDATING YOUR POWER OF BANK CREDIT CARD COLLECTION CLERK (NEED 2 WITNESSED SIGNATURES) Not available 09/19/2023 09:25:07 12/18/2023 [id number] Karlos: expect a call from the STructural heart team at [facility] drink at least 6 glasses of water a day. checking kidney function and magnesium labs today will mail home. follow up in 3 months for BPH, Aortic stenosis. 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 Referral for Roland ateral hearing loss Referring Physician: Vanessa Jordan, Family Medicine, Encounter Date: 02/26/2024 Results Created Date Observation Date Name Description Value Unit Range Abnormal Flag Note LastModifiedBy Organization Detail LastModifiedTime 12/18/19 24 12/18/2023 LASIC METAB OLIC PANEL calcium 9.3 mg/dL 8.5-10 .1 normal Not Available [address] [place], [address] 12/18/2023 17:09:55 12/18/19 24 12/18/2023 LASIC METAB OLIC PANEL glucose 90 mg/dL 74-106 normal Not Available Baljit montemayor [address] [place], [address] 12/18/2023 17:09:55 12/18/19 24 12/18/2023 LASIC METAB OLIC PANEL BUN 14 mg/dL 7-18 normal Not Available Baljit montemayor [address] [place], [address] 12/18/2023 17:09:55 12/18/19 24 12/18/2023 LASIC METAB OLIC PANEL creatinine 1.0 mg/dL 0.70-1 .30 normal Not Available [address] [place], [address] 12/18/2023 17:09:55 12/18/19 24 12/18/2023 LASIC METAB [...] young er-ag ed adult s. Not Available [address] [place], [address] 12/18/2023 17:09:55 12/18/19 24 12/18/2023 LASIC METAB OLIC PANEL sodium 139 mmol/ L 136-14 5 normal Not Available [address] [place], [address] 12/18/2023 17:09:55 12/18/19 24 12/18/2023 LASIC METAB OLIC PANEL potassium 4.9 mmol/ L 3.5-5. 1 normal Not Available [address] [place], [address] 12/18/2023 17:09:55 12/18/19 24 12/18/2023 LASIC METAB OLIC PANEL chloride 104 mmol/ L 98-107 normal Not Available [address] [place], [address] 12/18/2023 17:09:55 12/18/19 24 12/18/2023 LASIC METAB OLIC PANEL CO2 30.9 mmol/ L 21.0-3 2.0 normal Not Available [address] [place], [address] 12/18/2023 17:09:55 12/18/19 24 12/18/2023 LASIC METAB OLIC PANEL anion gap 4.1 mmol/ L 3-11 normal Not Available [address] [place], [address] 12/18/2023 17:09:55 12/18/19 24 12/18/2023 MAGNE SIUM magnesium 1.8 mg/dL 1.8-2. 4 normal Not Available [address] [place], [address] 12/18/2023 17:09:56 09/11/20 23 12/05/2022 trans -thor acic echoc ardio gram (TTE) (PROC ) No observ ation record ed. [email or web address] [facility] Xray [address] , [place], [address], 09/13/2023 09:29:52 09/11/20 23 06/01/2022 XR, hip, unila teral No observ ation record ed. [email or web address] Not Available 2022 09:29:19 09/11/20 23 12/06/2019 US, echoc ardio gram No observ ation record ed. [email or web address] [facility], [place], [address], 09/13/2023 09:28:49 Result Notes None recorded. Problems Name Problem SNOMED Code Status Onset Date Resolution Date Notes Provider Name and Address Organization Details Recorded Time Gastroes ophageal reflux disease without esophagi tis 725069152 Active 2022 Problem Code: K21.9; Problem Code Type: ICD-10; Not Available [facility] 4 05:35:57 Glaucoma 93708880 Active 2022 Problem Code: H40.9; Problem Code Type: ICD-10; Not Available [facility] 4 05:35:57 Hyperlip idemia 08053442 Active 2022 Problem Code: E78.5; Problem Code Type: ICD-10; Not Available [facility] 4 05:35:57 [facility] hyperten niels 06378042 Active 2022 Problem Code: I10; Problem Code Type: ICD-10; Not Available [facility] 4 05:35:57 Pain of left hip joint 05051589209 9100 Active 2022 Problem Code: M25.552; Problem Code Type: ICD-10; Not Available [facility] 4 05:35:57 Idiopath ic osteoart hritis 962789926 Active 2022 Problem Code: M16.12; Problem Code Type: ICD-10; Not Available [facility] 4 05:35:57 Inguinal hernia 832452411 Active 2022 Problem Code: K40.90; Problem Code Type: ICD-10; Not Available [facility] 4 05:35:57 Heart murmur 63040496 Active 2022 Problem Code: R01.1; Problem Code Type: ICD-10; Not Available [facility] 4 05:35:57 Dyspnea 151728987 Active 2022 Problem Code: R06.09; Problem Code Type: ICD-10; Not Available [facility] 4 05:35:57 Chest pain 23621783 Active 2022 Problem Code: R07.89; Problem Code Type: ICD-10; Not Available [facility] 4 05:35:57 Melanocy tic nevus 100468649 Active 2022 Problem Code: D22.9; Problem Code Type: ICD-10; Not Available [facility] 4 05:35:57 Aortic stenosis , non-rheu matic 496482783 Active 2022 Problem Code: I35.0; Problem Code Type: ICD-10; Not Available [facility] 4 05:35:58 Aortic stenosis , non-rheu matic 190135975 Completed 202208/14/2023 Problem Code: I35.0; Problem Code Type: ICD-10; Not Available [facility] 4 05:35:58 Indigest ion 559233775 Active 2023 GLORIA CAMP LPN null, [facility] 4 08:48:57 Coronary artery bypass grafts x 3 Active 2023 Kelly Duran RN [facility], [facility] 4 10:30:01 At increase d risk of atrial fibrilla tion 173238241 Active [address], [place], [address] , [facility] 4 13:52:01 Anemia 279235316 Active [address], [place], [address] , [facility] 4 13:54:39 Problem Notes None recorded. Procedures Surgical History Date Name Laterality Status Provider Name and Address Organization Details Recorded Time coronary artery bypass graft completed Hudson Reeder MA [place] - [facility] 03/04/2024 14:54:09 Imaging Results Imaging Date Name Status LastModified by Organization Details LastModified Time 12/05/2022 trans-thoracic echocardiogram (TTE) (PROC) completed [address] Xray [address] , [place], [address], 09/13/2023 09:29:52 06/01/2022 XR, hip, unilateral [place] [address] Information not available 09/13/2023 09:29:19 12/06/2019 US, echocardiogram completed [address]- Cardiology [address] , [place], [address], 09/13/2023 09:28:49 Procedure Notes None recorded. Medical [...] Take 1 hr prior. Started by [facility]. Not Available Not Available Not [...] MOUTH DAILY 02/24 completed stopped by [facility] Not Available Not Available Not [...] by oral route as needed. active [facility] Not Available Not Available No t Available Aspirin Childrens 81 mg chewable tablet Take 1 tablet by mouth once a day active Not Available Not Available No t Available lisinopri l 5 mg tablet TAKE 1 TABLET BY MOUTH EVERY DAY 02/24 completed stopped by [facility] Not Available Not Available Not [...] by oral route. active started by [facility] Not Available Not Available Not Available dorzolami de 2 % (PF) eye drops 1 drop both eyes bid 12/17 completed Not Available Not Available Not Available Vitals Date Recorded Body weight Body mass index (BMI) Body height Heart rate Systolic blood pressure Diastolic blood pressure Provider Name and Address Organization Details Last Updated DateTime 3 31193.7 8 g 23.7 kg/m2 167.64 cm 64 /min 110 mm[Hg] 60 mm[Hg] GLORIA CAMP LPN [facility]. 3 08:48:49 Date Recorded Body height Body mass index (BMI) Body weight Heart rate Systolic blood pressure Diastolic blood pressure Provider Name and Address Organization Details Last Updated DateTime 4 167.64 cm 24.6 kg/m2 83438.4 4 g 60 /min 112 mm[Hg] 80 mm[Hg] GLORIA CAMP LPN [facility] 4 08:38:13 Date Recorded Body height Body mass index (BMI) Body weight Heart rate Oxygen saturation Oxygen saturation in Arterial blood by Pulse oximetry Systolic blood pressure Diastolic blood pressure Provider Name and Address Organization Details Last Updated DateTime 4 167.64 cm 22.6 kg/m2 66131.6 5 g 63 /min 99 % 99 % 102 mm[Hg] 54 mm[Hg] Hudson Reeder MA [facility] 4 10:27:28 Social History Question Answer Notes LastModified by Organizat ion Details LastModified Time Tobacco Smoking Status Former Smoker Hudson Reeder MA null, [facility] 03/06/2024 10:24:50 Do You Have An Advance Directive? Yes Registered 08/15/23 Updated 01/12/24 Information not available 01/15/2024 When Did You Quit Smoking? 11-15years sincelastc igarette [email or web address] Information not available 03/06/2024 Do You Have A Medical Power Of Hem Inspector? Yes Received 08/30/23, Scanned. Copies Sent To [facility] And Patient 09/02/23. Information not available 09/02/2023 What Was The Date Of Your Most Recent Tobacco Screening? 03/06/2024 [email or web address] Information not available 03/06/2024 What Is Your Current Pack Years? 30ormorepa ckyears [email or web address] Information not available 03/06/2024 How Much Tobacco Do You Smoke? 1 PPD [email or web address] Information not available 03/06/2024 How Many Years Have You Smoked Tobacco? 40 Information not available 03/06/2024 Do You Or Have You Ever Used Any Other Forms Of Tobacco Or Nicotine? No [email or web address] Information not available 03/06/2024 Sex: Male Functional Status None recorded. Mental Status None recorded. Family History Relationship Description Onset Age of this Age Resolved Age Notes LastModified by Organization Details LastModified Time Father Family history of stroke [email or web address] Not available 10/18/2023 05:14:51 Notes:*Problem: Father: stro ke in 60s- survived. [...] Recorded Time Tdap 08/26/2013 completed Not Available [facility] 05:30:17 Td(adult) unspecified formulation 11/21/2022 completed Not Available [facility] 10/18/2023 05:30:17 COVID-19, mRNA, LNP-S, PF, 100 mcg/0.5mL dose or 50 mcg/0.25mL dose 01/24/2021 completed Not Available [facility] 10/18/19 05:30:18 COVID-19, mRNA, LNP-S, PF, 100 mcg/0.5mL dose or 50 mcg/0.25mL dose 02/21/2021 completed Not Available [facility] 10/18/19 05:30:18 COVID-19, mRNA, LNP-S, PF, 100 mcg/0.5mL dose or 50 mcg/0.25mL dose 09/11/2021 completed Not Available [facility] 10/18/19 05:30:18 influenza, unspecified formulation 07/26/2021 completed Not Available [facility] 10/18/2023 05:30:18 influenza, unspecified formulation 07/26/2022 completed Not Available [facility] 10/18/2023 05:30:18 influenza, unspecified formulation 07/28/2020 completed Not Available [facility] 10/18/2023 05:30:18 influenza, unspecified formulation 08/05/2019 completed Not Available [facility] 10/18/2023 05:30:18 influenza, unspecified formulation 08/12/2018 completed Not Available [facility] 10/18/2023 05:30:18 Past Encounters Encounter ID Performer Location Encounter Start Date Encounter Closed Date Diagnosis/Indication Diagnosis SNOMED-CT Code Diagnosis ICD10 Code [id number] [address] [address] 09/19/2023 08:39:51 09/19/2023 09:17:42 Aortic valve stenosis 59969782 I35.0 Essential hypertension 17824275 I10 [id number] [address] [address] 12/18/2023 08:23:47 12/18/2023 09:29:09 Aortic stenosis, non-rheumatic 248459089 I35.0 Essential hypertension 24213006 I10 Nonulcer dyspepsia 34831 07 K30 Cramp in lower leg 67914 8009 R25.2 [id number] TATYANA LEDEZMA MD [address] [address] 03/06/2024 10:15:07 03/06/2024 11:14:28 Postoperative visit 047319067 Z48.89 Aortic rosa m nosis, non-rheumatic 788559012 I35.0 Stented co ronary artery 353399799 Z95.5 At [facility] risk of atrial fibrillation 357740495 Z91.89 Anemia 906562084 D64.9 Health Concerns Section Related Observation LastModified by Organization Detai ls LastModified Time None Recorded Concern Status LastModified by Organization Details LastModified Time None Recorded Advance Directives Directive Y: Registered 08/15/23Updated 01/12/24 Payers Encounter Date Sequence Insurance Name Policy Number Policy Alicia Covered Member ID Alicia Member ID Guarantor Name 12/18/2023 1 [employer] [id number] Karlos C Patenaude [id number] Karlos C Patenaude 03/06/2024 1 U[employer] [id number] Karlos C Patenaude [id number] Karlos C Patenaude Notes Date Note Type Note Provider Name and Address Organization Details Recorded Time 09/19/2023 text/html HPI Notes: 63-year-old man here for follow-up hypertension, severe aortic stenosis., He works full-time at [employer]. He lives at home with his dog. [...] There is trivial to mild aortic insufficiency. Vanessa lizarraga [place] [employer] [facility]. 09/19/2023 13:31:38 12/18/2023 text/html HPI Notes: 63-year-old man here for follow-up hypertension, severe aortic stenosis., He works full-time at [employer]. He lives at home with his dog. [...] repair a number of years ago at [facility], it is starting to cause some discomfort. Reports leg cramps at nighttime intermittently, improves when he has a Gatorade during the daytime and Ovaltine in his coffee. Vanessa lizarraga [place] [employer] [facility]. 12/18/2023 11:43:00 03/06/2024 text/html HPI Notes: Ana Paula marlow is here today for a postop evaluation TATYANA LEDEZMA MD [address], [place], [address], [facility]. 03/08/2024 13:57:34
--- OUTSIDE RECORDS SUMMARY | 2024-06-24 08:33 | XMS_ITS | Encounter Summary ---
Author Organization [facility] [place] [address] [place] [address] Care Team Providers Care Non Morse Intercept Technician Name Role Phone Vanessa Christian APRN Primary Care Provider [phone] Encounter Details Date Type Department Care Team (Late st Contact Info) Description 10/21/2023 Abstract Cardiology at [address] [place] [phone] Adam Mayes RN Social History Tobacco Use [...] PM EST Office Visit Cardiology at [address] [place] [address] Neftali Ernandez MD [facility] [place] [address] documented as of this encounter Visit Diagnoses Not on filedocumented in this encounter Care Teams Non Morse Intercept Technician Relationship Specialty Start Date End Date Vanessa Christian APRN PCP - General Family Medicine 10/21/23 05/26/24 documented as of this encounter
--- OUTSIDE RECORDS SUMMARY | 2024-06-24 08:33 | XMS_ITS | Encounter Summary ---
Author Organization [facility] [place] [address] Care Team Providers Care Gas Transfer Operator Name Role Phone Vanessa Christian MAURI Primary Care Provider [phone] Encounter Details Date Type Department Care Team (Late st Contact Info) Description 01/10/2024 Orders Only Compression [place] [id number] Lawson Napoles PA [facility] [place] [address] Screening for cardiovascular condition; Aortic valve stenosis, [...] 3:00 PM EST Office Visit Cardiology at [address] [place] [address] Neftali Ernandez MD [facility] [place] [address] documented as of this encounter Visit Diagnoses Diagnosis Screening for cardiovascular condition Screening for other and unspecified cardiovascular conditions Aortic valve stenosis, etiology of cardiac valve disease unspecified documented in this encounter Care Teams Gas Transfer Operator Relationship Specialty Start Date End Date Vanessa Christian APRN PCP - General Family Medicine 10/21/23 05/26/24 documented as of this encounter
--- OUTSIDE RECORDS SUMMARY | 2024-06-24 08:33 | XMS_ITS | Encounter Summary ---
Author Organization [facility] [place] [address] Care Team Providers Care Hoeing Row Boss Name Role Phone Vanessa Christian Lane DOTSON Primary Care Provider [phone] Encounter Details Date Type Department Care Team (Late st Contact Info) Description 01/09/2024 2:30 PM EDT Clinical Support Same Day at [facility], [place] [address] Social History Tobacco Use Types Packs/Day Years Used Date Smoking Tobacco: Former Cigarettes Smokeless Tobacco: Never Comments:Quit 15 + years ago Alcohol Use Standard Drinks/Week Comments Yes 0 (1 standard drink = 0.6 oz pur e alcohol) rare [facility] Inpatient Questions Answer Date Recorded [...] you tube link for a video about [facility] cardiac surgery. Instructed to bring the booklet [...] type and screen performed while in the [facility]. Sent to Radiology for chest x-ray. Special medication instructions: None Procedure date: not booked. Darian documented in this encounter Plan of Treatment Upcoming Encounters Date Type Department Care Team (Late st Contact Info) Description 11/30/2024 3:00 PM EST Office Visit Cardiology at [address] [place] [address] Neftali Ernandez MD [facility] [place] [address] documented as of this encounter Visit Diagnoses Not on filedocumented in this encounter Care Teams Hoeing Row Boss Relationship Specialty Start Date End Date Vanessa Christian APRN PCP - General Family Medicine 10/21/23 05/26/24 documented as of this encounter
--- OUTSIDE RECORDS SUMMARY | 2024-06-24 08:33 | XMS_ITS | Encounter Summary ---
Author Organization [facility] [place] [address] Care Team Providers Care Housing And Residence Life Director Name Role Phone Vanessa Christian APRN Primary Care Provider [phone] Encounter Details Date Type Department Care Team (Late st Contact Info) Description 12/26/2023 Notes Only Cardiology at [address] [address] Neftali Ernandez MD [facility] [place] [address] Social History Tobacco Use Types Packs/Day Years [...] EDT Echocardiogram images reviewed from [facility]. Indeed, the aortic valve appears severely stenotic. Cannotrule out bicuspid valve documented in this encounter Plan of Treatment Upcoming Encounters Date Type Department Care Team (Late st Contact Info) Description 11/30/2024 3:00 PM EST Office Visit Cardiology at [address] [address] Neftali Ernandez MD [facility] [place] [address] documented as of this encounter Visit Diagnoses Not on filedocumented in this encounter Care Teams Housing And Residence Life Director Relationship Specialty Start Date End Date Vanessa Christian APRN PCP - General Family Medicine 10/21/23 05/26/24 documented as of this encounter
--- OUTSIDE RECORDS SUMMARY | 2024-06-24 08:33 | XMS_ITS | Encounter Summary ---
Author Organization [facility] [place] [address] Care Team Providers Care Associate Professor Of Geology Name Role Phone Vanessa Christian APRN Primary Care Provider Encounter Details Date Type Department Care Team (Late st Contact Info) Description 10/21/2023 Abstract Cardiology at [address] [phone] Adam Mayes RN Social History Tobacco Use [...] PM EST Office Visit Cardiology at [address] [address] Neftali Ernandez MD [facility] [place] [address] documented as of this encounter Visit Diagnoses Not on filedocumented in this encounter Care Teams Associate Professor Of Geology Relationship Specialty Start Date End Date Vanessa Christian APRN PCP - General Family Medicine 10/21/23 05/26/24 documented as of this encounter
--- OUTSIDE RECORDS SUMMARY | 2024-06-24 08:33 | XMS_ITS | Encounter Summary ---
Author Organization [facility] [place] [address] Care Team Providers Care Jewelry Racker Name Role Phone Vanessa Christian APRN Primary [...] PM EST Office Visit Cardiology at [address] [place] [phone] Neftali Ernandez MD [facility] [place] [address] documented as of this encounter Visit Diagnoses Not on filedocumented in this encounter Care Teams Jewelry Racker Relationship Specialty Start Date End Date Vanessa Christian APRN PCP - General Family Medicine 10/21/23 05/26/24 documented as of this encounter
--- OUTSIDE RECORDS SUMMARY | 2024-06-24 08:33 | XMS_ITS | Encounter Summary ---
Author Organization [facility] Address [facility] Ivana linareseileen [place] [id number] Care Team Providers Care Hole Digger Truck Driver Name Role Phone Vanessa Christian MAURI Primary Care Provider [phone] Reason for Referral * Consultation (Routine) - Closed Specialty Diagnoses / Procedures Referred By Contac t Referred To Contact Cardiac Surgery Diagnoses Nonrheumatic aortic valve stenosis significant - TAVR ( defers to Card Surg d/t age) Errol Loya MD [facility] [place] [address] Zak Farmer MD [facility] [place] [address] Referral ID Status Reason Start Date Expiration Date V isits Requested Visits Authorized [id number] Closed Consult, Test & Treat 10/21/2023 10/20/2024 1 1 Reason for Visit * Reason Comments Chest Pain Shortness of Breath Aortic Stenosis Encounter Details Date Type Department Care Team (Late st Contact Info) Description 10/21/2023 1:20 PM EST Office Visit Cardiology at [address] [address] Errol Loya MD [facility] [place] [address] Nonrheumatic aortic valve stenosis Social History Tobacco [...] findings Gastroesophageal reflux Nevus of face Right quaker Hypertension HLD (hyperlipidemia) MEDICATIONS: Current Outpatient Medications [...] meantime will refer to T at [facility] for further evaluation. Logistics and preliminary review [...] meantime will refer to T at [facility] for further evaluation. Logistics and preliminary review [...] PM EST Office Visit Cardiology at [address] [place] [phone] Errol Loya MD [facility] [place] [address] Scheduled Referrals Name Type Priority Associated Diagnoses Order Schedule Amb Referral to Structural Heart Outpatient Referral Routine Nonrheumatic aortic valve stenosis Ordered: 10/21/2023 documented as of this encounter Visit Diagnoses Diagnosis Nonrheumatic aortic valve stenosis Aortic valve disorders documented in this encounter Care Teams Hole Digger Truck Driver Relationship Specialty Start Date End Date Vanessa Christian APRN PCP - General Family Medicine 10/21/23 05/26/24 documented as of this encounter
--- OUTSIDE RECORDS SUMMARY | 2024-06-24 08:33 | XMS_ITS | Encounter Summary ---
Author Organization [facility] Address [facility] [place] [address] Care Team Providers Care Report Programmer Name Role Phone Vanessa Christian CAN INTAKE WORKER Primary Care Provider [phone] Reason for Referral * Diagnostic Test (Routine) - Closed Specialty Diagnoses / Procedures Referred By Contac t Referred To Contact Radiology Diagnoses Nonrheumatic aortic valve stenosis Procedures CT Chest wo Contrast (Generic) Louisa Reid PA [facility] CARDIOTHORACIC [place] [address] [facility] [place] [address] Referral ID Status Reason Start Date Expiration Date V isits Requested Visits Authorized [id number] Closed Specialty Service Requested 01/10/2024 07/11/2025 1 1 Encounter Details Date Type Department Care Team (Late st Contact Info) Description 01/09/2024 Orders [place] [address] Zak Farmer MD [facility] CARDIOTHORAC[facility] [place] [address] Nonrheumatic aortic valve stenosis Social History Tobacco [...] PM EST Office Visit Cardiology at [address] [place] [address] Neftali Ernandez MD [facility] [place] [address] documented as of this encounter Results * CT Chest wo Contrast (Generic) (02/03/2024 7:44 AM EDT) WORKSTATION ID [id number] RAD Anatomical Region Laterality Modality Chest Computed [...] who have questions please contact the health in home caregiver that requested your imaging first. ? Electronically signed by: Rogerio Wright MD, [facility] ([phone]), at 02/03/2024 10:00 AM Narrative 02/03/2024 10:00 [...] patients who have questions please contactthe health in home caregiver that requested your imaging first. Electronically signed by: Rogerio Wright MD, [facility]([phone]), at 02/03/2024 10:00 AM Zak Farmer MD IMG CT ORDERABLES documented in this encounter Visit Diagnoses Diagnosis Nonrheumatic aortic valve stenosis Aortic valve disorders Nonrheumatic aortic valve stenosis Aortic valve disorders documented in this encounter Care Teams Report Programmer Relationship Specialty Start Date End Date Vanessa Christian APRN PCP - General Family Medicine 10/21/23 05/26/24 documented as of this encounter
--- OUTSIDE RECORDS SUMMARY | 2024-06-24 08:33 | XMS_ITS | Encounter Summary ---
Author Organization [facility] [place] [address] Care Team Providers Care Video Game Developer Name Role Phone Vanessa Christian MAURI Primary Care Provider [phone] Encounter Details Date Type Department Care Team (Latest Contact Info) Description 01/09/2024 3:00 PM EDT Laboratory [place] [phone] Nonrheumatic aortic valve stenosis Social History Tobacco Use Types Packs/Day Years Used Date Smoking Tobacco: Former Cigarettes Smokeless Tobacco: Never Comments:Quit 15 + years ago Alcohol Use Standard Drinks/Week Comments Yes 0 (1 standard drink = 0.6 oz pur e alcohol) rare [facility] Inpatient Questions Answer Date Recorded Prevent Contact [...] PM EST Office Visit Cardiology at [address] [phone] Neftali Ernandez MD [facility] [place] [address] documented as of this encounter Procedures Procedure Name Priority Date/Time Associated Diagnosis Comments ABORH RECHECK STATUS Routine 01/09/2024 2:58 PM EDT HEMOGRAM Routine 01/09/2024 2:58 PM EDT Nonrheumatic aortic valve stenosis DIFFERENTIAL, AUTOMATED Routine 01/09/2024 2:58 PM EDT Nonrheumatic aortic valve stenosis TYPE AND SCREEN, SDP (FUTURE SURGERY, [facility] SAME DAY PROGRAM ONLY) Routine 01/09/2024 2:58 [...] PM EDT) ABORH Recheck Order Order Placed [facility] ABORH Type Recheck Completed [facility] Blood 01/09/2024 2:58 PM EDT 01/09/2024 3:08 PM EDT Narrative Resulting Agency Comment Spec In Lab Zak Farmer MD BLOOD BANK LAB CECILIO ALEMNA [facility] [place] [address] * Differential, Automated (01/09/2024 2:58 PM EDT) Neutrophil % 70.5 % [facility] Neutrophil Absolute 4.34 1.70 - 6.10 x10(3)/[facility] Lymph % 18.9 % [facility] Lymphocytes Abs 1.2 0.9 - 3.2 x10(3)/[facility] Monocyte % 8.0 % [facility] Monocyte Abs 0.5 0.3 - 0.9 x10(3)/[facility] Eos % 1.6 % [facility] Eosinophils Abs 0.1 0.0 - 0.4 x10(3)/[facility] Basophil % 0.5 % [facility] Baso Absolute 0.0 0.0 - 0.1 x10(3)/[facility] Immature Gran % 0.50 % [facility] Comment: Immature granulocytes(IG's)percentage and absolute count will include metamyelocytes, myelocytes, and promyelocytes. Blood smears from CBCs yielding IG's will be scanned manually for concordance. If this scan disagrees with the automated IG or if promyelocytes are noted, a manual differential will be performed. Immature Gran Absolute 0.03 0.00 - 0.04 x10(3)/[facility] Blood 01/09/2024 2:58 PM EDT 01/09/2024 3:03 PM EDT Narrative Resulting Agency Comment Spec In Lab Zak Farmer MD HEMATOLOGY ORDERABL ES [facility] [place] [address] * Hemogram (01/09/2024 2:58 PM EDT) White Blood Cell 6.2 4.0 - 9.5 x10(3)/[facility] Red Blood Cell 5.53 4.58 - 5.54 x10(6)/[facility] Hemoglobin 16.1 13.7 - 16.5 g/dL [facility] Hematocrit 46.9 40.5 - 48.5 % [facility] Mean Cell Volume 84.8 82.9 - 93.1 fL [facility] Mean Cell Hemoglobin 29.1 27.5 - 32.1 pg [facility] Mean Cell Hemoglobin Concentration 34.3 32.0 - 35.7 g/dL [facility] Platelet 187 145 - 357 x10(3)/[facility] RDW Standard Deviation 39.2 36.0 - 45.0 fL [facility] RDW coefficient of variation 12.6 11.4 - 13.8 % [facility] Mean Platelet Volume 9.5 7.6 - 12.9 fL [facility] NRBC% auto 0.0 % [facility] NRBC Absolute 0.000 0.000 - 0.000 x10(3)/[facility] Blood 01/09/2024 2:58 PM EDT 01/09/2024 3:03 PM EDT Narrative Resulting Agency Comment Spec In Lab Zak Farmer MD HEMATOLOGY ORDERABL ES [facility] [place] [address] * Basic Metabolic Panel (non-fasting) (01/09/2024 2:58 PM EDT) Glucose 102 65 - 199 mg/dL [facility] Comment:Diabetes: >=200 mg/d L plus symptoms Blood Urea Nitrogen 15 10 - 20 mg/dL [facility] Creatinine 0.94 0.80 - 1.50 mg/dL [facility] Sodium 137 135 - 145 mmol/L [facility] Potassium 4.5 3.5 - 5.0 mmol/L [facility] Comment: Please note: ??Patients with WBC >100,000 may have falsely elevated Potassium levels. ??For accurate Potassium quantification in these patients send serum separator tube (gold top) for subsequent determinations. ??Contact the Clinical Chemistry Laboratory if there are any questions. Chloride 103 98 - 107 mmol/L [facility] Carbon Dioxide 27 22 - 31 mmol/L [facility] Anion Gap 7 5 - 15 mmol/L [facility] Calcium 9.5 8.5 - 10.5 mg/dL [facility] Est Glomerular Filtration Rate 91 >=60 mL/min/1. 73 m?? [facility] [...] Lab Zak Farmer MD CHEMISTRY ORDERABLE S [facility] [place] [address] * Hepatic Function Panel (01/09/2024 2:58 PM EDT) Protein, Total 6.7 6.1 - 8.0 g/dL [facility] Albumin 4.5 3.2 - 5.2 g/dL [facility] Aspartate Aminotransferase 21 0 - 39 unit/L [facility] Alanine Aminotransferase 21 0 - 55 unit/L [facility] Alkaline Phosphatase 81 40 - 130 unit/L [facility] Bilirubin, Total 0.7 0.2 - 1.3 mg/dL [facility] Bilirubin, Direct 0.2 0.0 - 0.3 mg/dL [facility] Blood 01/09/2024 2:58 PM EDT 01/09/2024 3:03 PM EDT Narrative Resulting Agency Comment Spec In Lab Zak Farmer MD CHEMISTRY ORDERABLE S Performing Organization Address [facility] Co de Phone Number [facility] [place] [address] * Prothrombin Time (01/09/2024 2:58 PM EDT) Prothrombin Time 10.6 9.4 - 12.5 sec [facility] International Normalization Ratio 0.9 [facility] Comment: An INR <2.0 [...] MD HEMATOLOGY ORDERABL ES Performing Organization Address [facility] Co de Phone Number [facility] [place] [address] * Type and Screen Future Surgery, [facility] SAME DAY PROGRAM ONLY) (01/09/2024 2:58 PM EDT) ABORH Type O NEGATIVE [facility] Patient BB History Not Found [facility] Expires at [id number] on: 02-20-2024 [facility] Ab Screen Interp Negative [facility] Blood 01/09/2024 2:58 PM EDT 01/09/2024 2:58 PM EDT Narrative Resulting Agency Comment Spec In Lab Zak Farmer MD BLOOD BANK LAB ORDE RABLES Performing Organization Address City/[facility]/ZIP [place] [address] documented in this encounter Visit Diagnoses Diagnosis Nonrheumatic aortic valve stenosis Aortic valve disorders documented in this encounter Care Teams Video Game Developer Relationship Specialty Start Date End Date Vanessa Christian APRN PCP - General Family Medicine 10/21/23 05/26/24 documented as of this encounter
--- OUTSIDE RECORDS SUMMARY | 2024-06-24 08:33 | XMS_ITS | Encounter Summary ---
Author Organization [facility] [place] [address] Care Team Providers Care Weather Analyst Name Role Phone Victor M Lafleur MD Primary Care Provider [phone] Encounter Details Date Type Department Care Team (Late st Contact Info) Description 09/26/2023 Abstract Cardiology at [address] [address] Karen Billy, RN Nonrheumatic aortic [...] PM EST Office Visit Cardiology at [address] [place] [address] Neftali Ernandez MD [facility] [place] [address] documented as of this encounter Visit Diagnoses Diagnosis Nonrheumatic aortic valve stenosis Aortic valve disorders Nevus of face Benign neoplasm of skin of other and unspecified parts of face documented in this encounter Care Teams Weather Analyst Relationship Specialty Start Date End Date Victor M Lafleur MD PCP - General 10/02/13 10/20/23 documented as of this encounter
--- OUTSIDE RECORDS SUMMARY | 2024-06-26 08:28 | XMS_ITS | Encounter Summary ---
Author Organization [facility] Address [address] [place] [address] Care Team Providers Care Pss Delivery Professional Name Role Phone Vanessa Christian Lane MONCADA Primary Care Provider [phone] Encounter Details Date Type Department Care Team (Late st Contact Info) Description 10/24/2023 Lab Requisition [facility] Pathology & Laboratory Medicine - [address] [address] Oscar Nichole MD [address] [place] [id number] Factitial dermatitis Social History Tobacco Use Types [...] if applicable. 10/28/2023 11:24 EST [facility] Final Diagnosis A. SKIN OF TAOISM, LEFT, SHAVE BIOPSY: - Seborrheic keratosis, pigmented. 10/28/2023 11:24 EST [facility] Attestation By the signature below, the attending physician certifies that they have 1) personally conducted a gross and/or microscopic examination of the described specimen(s), and/or personally interpreted the results of laboratory testing of the described specimen(s), and 2) personally rendered or confirmed the above diagnosis. 10/28/2023 11:24 [facility] at [address] Microscopic Description The stratum corneum is thickened by compact and basketweave orthokeratosis with formation of horn pseudocysts. The epidermis is acanthotic with formation of broad and anastomosing trabeculae. The trabeculae are composed of basaloid keratinocytes with round uniform nuclei. The keratinocytes have a variable amount of melanin pigment. 10/28/2023 11:24 [facility] Clinical History Pigmented 2 cm patch; clinical diagnosis code: L98.1 10/28/2023 11:24 [facility] Gross Description A. [...] Nora Anderson 10/25/2023 8:47 10/28/2023 11:24 [facility] Performing Lab [facility] 10/28/2023 11:24 [facility] Scanned Images 10/28/2023 11:24 [facility] Tissue SPECIMEN FROM SKIN / Unknown 10/24/2023 14:30 EST 10/24/2023 22:04 EST Oscar Nichole MD PATHOLOGY ORDERABLES [facility] [address] [place] [address] documented in this encounter Visit Diagnoses Diagnosis Factitial dermatitis Dermatitis factitia (artefacta) documented in this encounter Care Teams Pss Delivery Professional Relationship Specialty Start Date End Date Vanessa Christian NP [address] [place] [address] PCP - General Family Medicine - Primary Care 10/07/23 documented as of this encounter
--- OUTSIDE RECORDS SUMMARY | 2024-06-26 08:28 | XMS_ITS | Clinical Summary ---
Author Organization [facility] Address [address] [place] [address] Care Team Providers Care Carpentry Foreman Name Role Phone Vanessa Christian NP Primary Care Provider [phone] Social History Tobacco Use Types Packs/Day Years [...] COVID-19 Vaccine (2022- season) 2024 Care Teams Carpentry Foreman Relationship Specialty Start Date End Date Vanessa Christian NP [address] [place] [phone] PCP - General Family Medicine - Primary Care 10/07/23
--- OUTSIDE RECORDS SUMMARY | 2024-06-26 08:28 | XMS_ITS | Encounter Summary ---
Author Organization [facility] Address [facility] [place] [address] Care Team Providers Care Cardiothoracic Physiotherapist Name Role Phone Vanessa Christian Lane DOTSON Primary Care Provider [phone] Reason for Visit * Reason Comments Coronary Artery Disease Aortic Stenosis Encounter Details Date Type Department Care Team (Latest Contact Info) Description 05/27/2024 11:00 AM EDT Office Visit Cardiology at [address] [place] [phone] Neftali Ernandez MD [facility] [place] [address] ASCVD (arteriosclerotic cardiovascular disease); Nonrheumatic aortic valve stenosis Social History Tobacco Use Types Packs/Day Years Used Date Smoking Tobacco: Former Cigarettes Smokeless Tobacco: Never Comments:Quit 15 + years ago Alcohol Use Standard Drinks/Week Comments Yes 0 (1 standard drink = 0.6 oz pur e alcohol) rare [facility] Utilities Answer Date Recorded In the past 12 months has e [employer], gas, oil, or water [employer] threatened to shut off services in your [...] PM EST Office Visit Cardiology at [address] [address] Neftali Ernandez MD [facility] [place] [address] documented as of this encounter Visit Diagnoses Diagnosis ASCVD (arteriosclerotic cardiovascular disease) Unspecified cardiovascular disease Nonrheumatic aortic valve stenosis Aortic valve disorders documented in this encounter Care Teams Cardiothoracic Physiotherapist Relationship Specialty Start Date End Date Vanessa Christian APRN [address] [place] [address] PCP - General Family Medicine 05/27/24 documented as of this encounter
--- OUTSIDE RECORDS SUMMARY | 2024-06-26 08:28 | XMS_ITS | Encounter Summary ---
Author Organization [facility] Address [facility] [place] [address] Care Team Providers Care Floorleader Name Role Phone Vanessa Christian MAURI Primary Care Provider [phone] Encounter Details Date Type Department Care Team (Latest Contact Info) Description 03/12/2024 Travel Social History Tobacco Use Types Packs/Day Years Used Date Smoking Tobacco: Former Cigarettes Smokeless Tobacco: Never Comments:Quit 15 + years ago Alcohol Use Standard Drinks/Week Comments Yes 0 (1 standard drink = 0.6 oz pur e alcohol) rare [facility] Utilities Answer Date Recorded In [...] PM EST Office Visit Cardiology at [address] [phone] Neftali Ernandez MD [facility] [place] [address] documented as of this encounter Visit Diagnoses Not on filedocumented in this encounter Care Teams Floorleader Relationship Specialty Start Date End Date Vanessa Christian APRN PCP - General Family Medicine 10/21/23 05/26/24 documented as of this encounter
--- OUTSIDE RECORDS SUMMARY | 2024-06-26 08:28 | XMS_ITS | Encounter Summary ---
Author Organization [facility] Address [facility] [place] [address] Care Team Providers Care Tumbler Dyeing Machine Operator Name Role Phone Vanessa Christian MAURI Primary Care Provider [phone] Encounter Details Date Type Department Care Team (Late st Contact Info) Description 03/12/2024 2:40 PM EDT Office [place] [phone] Zak Farmer MD [facility] [place] [address] Coronary artery disease, unspecified vessel or lesion type, unspecified whether angina present, unspecified whether [place] or transplanted heart Social History Tobacco Use Types Packs/Day Years Used Date Smoking Tobacco: Former Cigarettes Smokeless Tobacco: Never Comments:Quit 15 + years ago Alcohol Use Standard Drinks/Week Comments Yes 0 (1 standard drink = 0.6 oz pur e alcohol) rare [facility] Utilities Answer Date Recorded In the past 12 months has e [employer], gas, oil, or water [employer] threatened to shut off services in your [...] 2:40 PM EDT To: MD Vanessa Coles, GRAPHIC ARTS INSTRUCTOR Re; Karlos Santa ( 1960) We had [...] office. Best personal regards, Zak Farmer MD [phone] documented in this encounter Plan of Treatment Upcoming Encounters Date Type Department Care Team (Late st Contact Info) Description 11/30/2024 3:00 PM EST Office Visit Cardiology at [address] [place] [address] Neftali Ernandez MD [facility] [place] [address] documented as of this encounter Procedures Procedure Name Priority Date/Time Associated Diagnosis Comments EKG 12-LEAD Routine 03/12/2024 2:35 PM EDT Coronary artery disease, unspecified vessel or lesion type, unspecified whether angina present, unspecified whether ton[place]anda or transplanted heart documented in this encounter Results * EKG 12 Lead (03/12/2024 2:35 PM EDT) Ventricular rate 59 BPM MUSE SYSTEM Atrial Rate 59 BPM MUSE SYSTEM P-R Interval 190 ms MUSE SYSTEM QRS Duration 92 ms MUSE SYSTEM Q-T Interval 406 ms MUSE SYSTEM QTC Calculated (Bezet) 401 ms MUSE SYSTEM Calculated P [place] -12 degrees MUSE SYSTEM Calculated R [place] 24 degrees MUSE SYSTEM Calculated T [place] 74 degrees MUSE SYSTEM INTERPRETATION Sinus bradycardia T wave abnormality, consider anterior ischemia Abnormal ECG When compared with ECG of 17-FEB-2024 13:24, CT interval has decreased T wave inversion now evident in Anterior leads Confirmed by Paul Guzman ([id number]) on 03/15/2024 8:36:23 AM MUSE SYSTEM 03/12/2024 2:35 PM EDT 03/15/2024 8:36 AM EDT Zak Farmer MD ECG ORDERABLES MUSE SYSTEM documented in this encounter Visit Diagnoses Diagnosis Coronary artery disease, unspecified vessel or lesion type, unspecified whether angina present, unspecified whether tonawanda or transplanted heart documented in this encounter Care Teams Tumbler Dyeing Machine Operator Relationship Specialty Start Date End Date Vanessa Christian APRN PCP - General Family Medicine 10/21/23 05/26/24 documented as of this encounter
--- OUTSIDE RECORDS SUMMARY | 2024-06-26 08:28 | XMS_ITS | Encounter Summary ---
Author Organization [facility] Address [facility] [place] [address] Care Team Providers Care Oyster Floater Name Role Phone Vanessa Christian MAURI Primary Care Provider Encounter Details Date Type Department Care Team (Latest Contact Info) Description 03/12/2024 1:30 PM EDT - 03/12/2024 11:59 PM EDT Hospital Encounter XRay at [address] [place] [address] Coronary artery disease, unspecified vessel or lesion type, unspecified whether angina present, unspecified whether absentee-shawnee or transplanted heart Discharge Disposition: Home Social History Tobacco Use Types Packs/Day Years Used Date Smoking Tobacco: Former Cigarettes Smokeless Tobacco: Never Comments:Quit 15 + years ago Alcohol Use Standard Drinks/Week Comments Yes 0 (1 standard drink = 0.6 oz pur e alcohol) rare [facility] Utilities Answer Date Recorded In the past [address] [employer], gas, oil, or water [employer] threatened to shut off services in your [...] PM EST Office Visit Cardiology at [address] [place] [address] Neftali Ernandez MD [facility] [place] [address] documented as of this encounter Procedures Procedure Name Priority Date/Time Associated Diagnosis Comments XR CHEST PA AND LATERAL Routine 03/12/2024 1:42 PM EDT Coronary artery disease, unspecified vessel or lesion type, unspecified whether angina present, unspecified whether absentee-shawnee or transplanted heart documented in this encounter Results * XR Chest PA & Lateral (Generic) (03/12/2024 1:42 PM EDT) WORKSTATION ID [id number] RAD Anatomical Region Laterality Modality Chest N/A [...] who have questions please contact the health gericare aide teacher that requested your imaging first. ? Electronically signed by: Augie Sanchez MD, [facility] ([phone]), at 03/13/2024 8:28 AM Narrative 03/13/2024 8:28 AM EDT EXAMINATION: XR CHEST PA AND LATERAL (GENERIC) CLINICAL HISTORY: s/p cabg eval effusions I25.10, Atherosclerotic heart disease of absentee-shawnee coronary artery without angina pectoris TECHNIQUE: PA [...] eval effusions I25.10, Atherosclerotic heart disease of absentee-shawnee coronary artery withoutangina pectoris TECHNIQUE: PA and [...] patients who have questions please contactthe health gericare aide teacher that requested your imaging first. Electronically signed by: Augie Sanchez MD, [facility]([phone]), at 03/13/2024 8:28 AM Zak Farmer MD IMG DX ORDERABLES documented in this encounter Visit Diagnoses Diagnosis Coronary artery disease, unspecified vessel or lesion type, unspecified whether angina present, unspecified whether absentee-shawnee or transplanted heart documented in this encounter Care Teams Oyster Floater Relationship Specialty Start Date End Date Vanessa Christian, MAURI PCP - General Family Medicine 10/21/23 05/26/24 documented as of this encounter
--- OUTSIDE RECORDS SUMMARY | 2024-06-26 08:28 | XMS_ITS | Encounter Summary ---
Author Organization [facility] Address [facility] [place] [address] Care Team Providers Care Manager Chemistry Name Role Phone Vanessa Christian MAURI Primary Care Provider [phone] Encounter Details Date Type Department Care Team [...] PM EST Office Visit Cardiology at [address] [id number] Neftali Ernandez MD [facility] [place] [address] documented as of this encounter Visit Diagnoses Not on filedocumented in this encounter Care Teams Manager Chemistry Relationship Specialty Start Date End Date Vanessa Christian APRN PCP - General Family Medicine 10/21/23 05/26/24 documented as of this encounter
--- OUTSIDE RECORDS SUMMARY | 2024-06-26 08:28 | XMS_ITS | Clinical Summary ---
Author Organization [facility] Address [facility] [place] [address] Care Team Providers Care Regional Sales Executive Name Role Phone Vanessa Christian Lane DOTSON Primary Care Provider Allergies No known active allergies Medications Medication [...] the meantime will refer to SHT at [facility] for further evaluation. Logistics and preliminary review of TONY were reviewed with patient. - Refer to SHT Hypertension 08/14/2023 Resolved Problems Problem Noted Date Diagnosed Date Resolved Date Nevus of face 09/26/2023 05/27/2024 Overview (09/26/2023): Right uatsdin Chest pressure 08/14/2023 10/21/2023 SILVA (dyspnea on exertion) 08/14/2023 HLD (hyperlipidemia) 08/14/2023 024 Encounters Date Type Department Care Team Description 05/27/2024 11:00 AM EDT Office Visit Cardiology at [address] [place] [address] Neftali Ernandez MD ASCVD (arteriosclerotic cardiovascular disease); Nonrheumatic aortic valve stenosis 05/27/2024 Travel 05/20/2024 Travel from Last 3 Months Social History Tobacco Use Types Packs/Day Years Used Date Smoking Tobacco: Former Cigarettes Smokeless Tobacco: Never Comments:Quit 15 + years ago Alcohol Use Standard Drinks/Week Comments Yes 0 (1 standard drink = 0.6 oz pur e alcohol) rare [facility] Utilities Answer Date Recorded In the past [...] PM EST Office Visit Cardiology at [address] [place] [address] Neftali Ernandez MD [facility] [place] [address] Health Maintenance Due Date Last [...] series) 06/07/2024 Medical Devices Implanted Type Area Patient Day Coordinator Device Identifier Shelf Expiration Date Model / Serial / Lot Cable,Cut,Edg ,Blnt,Ss,3tpr ([id number]) - [id number] Implanted:Qty : 1 on 02/17/2024 by Zak Farmer MD at [facility] IMPLANTS Midline: Chest [employer] - [id number] 09/02/2028 [id number] / / [id number] Valve Coronary Aortic 23mm Tissue Trnscath Biop[employer] Inspiris ([id number]) (Autore[employer]) - [id number] Implanted:Qty : 1 on 02/17/2024 by Zak Farmer MD at [facility] IMPLANTS Heart [employer] - TSAI LI 09/15/2027 [id number] / [id number] / Procedures Procedure Name Priority Date/Time Associated [...] (Bezet) 367 ms MUSE SYSTEM Calculated P [place] 12 degrees MUSE SYSTEM Calculated R [place] 27 degrees MUSE SYSTEM Calculated T [place] 62 degrees MUSE SYSTEM INTERPRETATION Sinus bradycardia with 1st degree A-V block Otherwise normal ECG When compared with ECG of 12-MAR-2024 14:35, T wave inversion no longer evident in Anterior leads Confirmed by MD Ernandez Daniel ([id number]) on 06/01/2024 8:36:17 AM MUSE SYSTEM 05/27/2024 [...] Status decision made by: Patient Care Teams Regional Sales Executive Relationship Specialty Start Date End Date Vanessa Christian, FIRST MATE [address] [place] [address] PCP - General Family Medicine 05/27/24
--- OUTSIDE RECORDS SUMMARY | 2024-06-26 08:28 | XMS_ITS | Referral Summary ---
Author Organization [facility] Address [address] [place] [address] Care Team Providers Care Wallet Assembler Name Role Phone Filidayna Vanessa Sherman NP Primary Care Provider Social History Tobacco Use Types Packs/Day Years Used Date Smoking Tobacco: Never Assessed Sex and Gender Information Value Date Recorded Sex Assigned at Not on file Gender Identity Not on file Sexual Orientation Not on file Plan of Treatment Not on file Care Teams Wallet Assembler Relationship Specialty Start Date End Date Vanessa Christian NP [address] [place] [address] PCP - General Family Medicine - Primary Care 10/07/23
--- OUTSIDE RECORDS SUMMARY | 2024-06-26 08:28 | XMS_ITS | Encounter Summary ---
Author Organization [facility] Address [facility] [place] [address] Care Team Providers Care Yarn Worker Name Role Phone Gino Vanessa Lane DOTSON Primary Care Provider [phone] Encounter Details Date Type Department Care Team (Late st Contact Info) Description 02/24/2024 Orders Only Cardiac Surgery [facility] [place] [phone] Trudi Lester APRN [facility] [place] [address] Social History Tobacco Use Types Packs/Day Years Used Date Smoking Tobacco: Former Cigarettes Smokeless Tobacco: Never Comments:Quit 15 + years ago Alcohol Use Standard Drinks/Week Comments Yes 0 (1 standard drink = 0.6 oz pur e alcohol) rare [facility] Utilities Answer Date Recorded In the past 12 months has e [employer], gas, oil, or water [employer] threatened to shut off services in [...] PM EST Office Visit Cardiology at [address] [place] [place] [address] Neftali Ernandez MD [facility] [place] [address] documented as of this encounter Visit Diagnoses Not on filedocumented in this encounter Care Teams Yarn Worker Relationship Specialty Start Date End Date Vanessa Christian APRN PCP - General Family Medicine 10/21/23 05/26/24 documented as of this encounter
--- OUTSIDE RECORDS SUMMARY | 2024-06-26 08:28 | XMS_ITS | Encounter Summary ---
Author Organization Replaced By [facility] Address [facility] [place] [address] Care Team Providers Care Net Manager Name Role Phone Vanessa Christian MAURI Primary Care Provider [phone] Encounter Details Date Type Department Care Team (Latest Contact Info) Description 05/27/2024 Travel Social History Tobacco Use Types Packs/Day Years Used Date Smoking Tobacco: Former Cigarettes Smokeless Tobacco: Never Comments:Quit 15 + years ago Alcohol Use Standard Drinks/Week Comments Yes 0 (1 standard drink = 0.6 oz pur e alcohol) rare [facility] Utilities Answer Date Recorded In [...] PM EST Office Visit Cardiology at [address] [address] Neftali Ernandez MD [facility] [address] documented as of this encounter Visit Diagnoses Not on filedocumented in this encounter Care Teams Net Manager Relationship Specialty Start Date End Date Vanessa Christian APRN [address] [place] [address] PCP - General Family Medicine 05/27/24 documented as of this encounter
--- OUTSIDE RECORDS SUMMARY | 2024-06-26 08:29 | XMS_ITS | Encounter Summary ---
Author Organization [facility] [place] [address] Care Team Providers Care Optician Apprentice Name Role Phone Vanessa Christian APRN Primary Care Provider [phone] Encounter Details Date Type Department Care Team [...] 3:00 PM EST Office Visit Cardiology at [address] [place] [phone] Neftali Ernandez MD [facility] [place] [address] documented as of this encounter Visit Diagnoses Not on filedocumented in this encounter Care Teams Optician Apprentice Relationship Specialty Start Date End Date Vanessa Christian APRN PCP - General Family Medicine 10/21/23 05/26/24 documented as of this encounter
--- OUTSIDE RECORDS SUMMARY | 2024-06-26 08:29 | XMS_ITS | Encounter Summary ---
Author Organization [facility] Address [facility] [place] [address] Care Team Providers Care Creative Services Producer Name Role Phone Vanessa Christian MAURI Primary Care Provider [phone] Encounter Details Date Type Department Care Team (Latest Contact Info) Description 01/09/2024 3:02 PM EDT - 01/09/2024 11:59 PM EDT Hospital Encounter XRay at [address] [place] [address] Zak Farmer MD [facility] [place] [address] Nonrheumatic aortic valve stenosis Discharge Disposition: Home Social History Tobacco Use Types Packs/Day Years Used Date Smoking Tobacco: Former Cigarettes Smokeless Tobacco: Never Comments:Quit 15 + years ago Alcohol Use Standard Drinks/Week Comments Yes 0 (1 standard drink = 0.6 oz pur e alcohol) rare [facility] Inpatient Questions Answer Date Recorded Prevent Contact [...] PM EST Office Visit Cardiology at [address] [place] [address] Neftali Ernandez MD [facility] [place] [address] documented as of this encounter Procedures Procedure [...] questions please contact the health personal care aide that requested your imaging first. ? Narrative [...] have questions please contactthe health personal care aide that requested your imaging first. Zak Farmer MD IMG DX ORDERABLES documented in this encounter Visit Diagnoses Diagnosis Nonrheumatic aortic valve stenosis Aortic valve disorders documented in this encounter Care Teams Creative Services Producer Relationship Specialty Start Date End Date Vanessa Christian APRN PCP - General Family Medicine 10/21/23 05/26/24 documented as of this encounter
--- OUTSIDE RECORDS SUMMARY | 2024-06-26 08:29 | XMS_ITS | Encounter Summary ---
Author Organization [place] [address] Care Team Providers Care Trip Follower Name Role Phone Aparna Jordan MAURI Primary Care Provider [phone] Reason for Visit * Auth/Cert (Routine) Specialty [...] ARTERIAL GRAFT (WRVU 7.93) Hayder Graham MD [facility] CARDIOTHORACIC [place] [address] [facility] Referral ID Status Reason Start Date Expiration Date Visits Re quested Visits Authorized [id number] 1 1 Encounter Details Date Type Department Care Team (Late st Contact Info) Description 02/17/2024 7:30 AM EDT - 02/17/2024 1:26 PM EDT [place] [id number] Hayder Graham MD [facility] C[place] [place] [address] ENDOSCOPIC HARVEST VEIN(S) FOR CABG (WRVU 0.31) Social History Tobacco Use Types Packs/Day Years Used Date Smoking Tobacco: Former Cigarettes Smokeless Tobacco: Never Comments:Quit 15 + years ago Alcohol Use Standard Drinks/Week Comments Yes 0 (1 standard drink = 0.6 oz pur e alcohol) rare [facility] Utilities Answer Date Recorded In the [...] Patient Age: 63 y.o. Birthdate: 1960 Language: Bermudian Race: White Ethnicity: Not nor Admit Date: 02/17/2024 Discharge Date: 02/24/24 Attending Physician: Hayder Graham MD Follow-up Recommendations for Providers: Please continue routine management of cardiovascular risk factors including blood pressure, lipids,glucose, etc. Please note any changes to medications. Patient to follow up with PCP, Aparna Jordan APRN, in 1-2 weeks. Patient to follow up with Nuclear Operator, Neftali Ernandez MD , in 2 weeks. Patient to follow up with Cardiac Surgeon, Dr. Hayder Graham, with a chest x-ray, EKG, and Echo. 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 Past Surgical History: Procedure Laterality Date PRO CABG, ARTERIAL, SINGLE N/A 02/17/2024 @CABG, USING ARTERIAL GRAFT;SINGLE ARTERIAL GRAFT (WRVU 33.75) performed by Hayder Graham MD at [facility] MAIN OR PRO CABG, ARTERY-VEIN, TWO N/A 02/17/2024 @CABG, TWO VENOUS GRAFTS & ARTERIAL GRAFT (WRVU 7.93) performed by Hayder Graham MD at [facility] MAIN OR PRO ENDOSCOPY W/VIDEO-ASST VEIN HARVEST, CABG Left 02/17/2024 ENDOSCOPIC HARVEST VEIN(S) FOR CABG (WRVU 0.31) performed by Hayder Graham MD at [facility] MAIN OR PRO REPLACEMENT PROSTHETIC AORTIC VALVE OPEN W CARDIOPULMONARY BYPASS HOMOGRF/STENT N/A 02/17/2024 @REPLACE AORTIC VALVE, OPEN, W\CPB, W\PROSTHETIC VALVE (WRVU 41.32) performed by Hayder Graham MD at [facility] MAIN OR Prior To Admission [...] insufficiency. He has glaucoma. He used to [employer] until about 15 years ago. He has undergone prior herniorrhaphy. 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 Major Procedures/Operations: 02/17/24 s/p avr/cabgx3 CABG x 3 JOSE->LAD SVG->dRCA SVG->OM1 EVH from LLE AVR with a 23 mm Inspiris Bioprosthesis Hospital Course: Karlos Garcia [facility]17[facility]24 via the Same [...] Pre-operative beta eric? Not given Discharge beta eirc? Given Discharge lipid therapy? Given Discharge anti-platelet [...] Hayder Graham and/or the Cardiac Surgery Physician Pressed Or Blown Glass Worker Team may be reached at . [...] Dr. Hayder Graham. You may use a [place] Track or treadmill but avoid any pulling [...] while being managed by your PCP and/or Nuclear Operator. For future medication refills, please refer to your PCP and/or Nuclear Operator after your discharge from our service. Thank you REMOVE CHEST TUBE SUTURES ON OR AFTER 03/02/24 Home oxygen therapy: N/A Follow up appointments: You should follow up with your PCP, Aparna Jordan APRN, in 1-2 weeks. Our office will schedule an appointment with your Nuclear Operator, Neftali Ernandez MD , in 2 weeks. You have an appointment with your Cardiac Surgeon, Dr. Hayder Graham, 4 weeks with a chest x-ray, EKG, and Echo before your appointment. Cardiac Rehabilitation: Karlos Garcia was seen regarding participation in the outpatient Phase 2Cardiac Rehabilitation at [facility]. The patient agrees to a referral to this program. The referral will be sent at discharge and the patient should be contacted by the Program within 1- 2 weeks from discharge. Future Appointments and Orders Future Orders Complete By Expires Echocardiogram Transthoracic [44720 CPT(R)] 03/26/2024 09/25/2024 Process Instructions: Scheduling Instructions: Questions: Where will study be performed?: [facility] Does the patient have Congenital Heart Disease?: Does patient require sedation?: Sedation rationale: XR Chest PA & Lateral (Generic) [20434 95636 Custom] 03/26/2024 09/25/2024 Process Instructions: Scheduling Instructions: Questions: Portable exam?: Reason for exam and clinical history: s/p avr/cabg Clinical information / jerome questions for radiologist: Stat read required?: Date of injury if applicable: Requested Time: Where will study be performed?: [facility] Radiology Referral to Cardiac Rehab [MSV467 Custom] As directed Process Instructions: If no progress note charted, please enter Clinical details in comments. Scheduling Instructions: Questions: My question or request is: s/p AVR/CABG. Cardiac rehab at [facility]. Referral to Home Health [REF34 Custom] As directed Process Instructions: If no progress note charted, please enter Clinical details in comments. Scheduling Instructions: Comments: Please evaluate Karlos Garcia for admission to Home Health. 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 [address] [place] [phone] RN orders: Cardiopulmonary assessment, incisional assessment, assess [...] issues please call the Cardiology Office at [phone] FOR MEDICARE ONLY: (please delete this section [...] As above. Signed: NEFTALI MENON PA-C [facility] Section of Cardiac Surgery [facility] [address] FAX [phone] Date: 02/24/2024 CC: Aparna Jordan, MAURI Jordan, Aparna Sherman APRN [address] [place] [address] documented in this encounter Discharge Instructions * [...] Hayder Graham and/or the Cardiac Surgery Physician Pressed Or Blown Glass Worker Team may be reached at . [...] Dr. Hayder Graham. You may use a [place] Track or treadmill but avoid any pulling [...] while being managed by your PCP and/or Nuclear Operator. For future medication refills, please refer to your PCP and/or Nuclear Operator after your discharge from our service. Thank you REMOVE CHEST TUBE SUTURES ON OR AFTER 03/02/24 Home oxygen therapy: N/A Follow up appointments: You should follow up with your PCP, Aparna Jordan APRN, in 1-2 weeks. Our office will schedule an appointment with your Nuclear Operator, Neftali Ernandez MD , in 2 weeks. You have an appointment with your Cardiac Surgeon, Dr. Hayder Graham, 4 weeks with a chest x-ray, EKG, and Echo before your appointment. Cardiac Rehabilitation: Karlos Garcia was seen regarding participation in the outpatient Phase 2Cardiac Rehabilitation at [facility]. The patient agrees to a [...] 0600 and on the weekends please page [phone]. * Eric Barahona PA - 02/23/2024 9:27 [...] 0600 and on the weekends please page [phone]. * Tiffanie Owens - 02/22/2024 2:48 PM [...] Pt reports his dtr is coming from [place] to stay upon d/c for 10 days. 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 He works Precautions/Special Considerations: STERNAL [...] LRAD and supervision Time IN / OUT: 7449-0729 Total Time: 30 minutes; TEFx2 Tiffanie Owens Pager: [phone] Physical Therapy Inpatient Rehabilitation Department * Romeo [...] on the weekends please page [phone]. * Kelley Hinson TYPEWRITER ALIGNER - 02/21/2024 10:15 AM EDT Physical Therapy [...] Pt reports his dtr is coming from [place] to stay upon d/c for 10 days. 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 He works Precautions/Special Considerations: STERNAL [...] LRAD and supervision Time IN / OUT: 4585-7983 Total Time: 25 minutes; TEF 2 Kelley Hinson PTA Pager: [phone] Physical Therapy Inpatient Rehabilitation Department * Louisa [...] 0600 and on the weekends please page [phone]. * Kelley Hinson PTA - 02/20/2024 3:32 [...] at that time Kelley Hinson PTA Pager: [phone] Physical Therapy Inpatient Rehab Department * Louisa [...] 0600 and on the weekends please page [phone]. * Maris Benavides, PT - 02/19/2024 11:22 [...] Pt reports his dtr is coming from [place] to stay upon d/c for 10 days. 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 He works. Precautions/Special Considerations: STERNAL [...] outlined inthis evaluation. MARIS BENAVIDES, PT Pager: [phone] Physical Therapy Inpatient Rehabilitation Department Time IN / OUT: 7991-7865 Total Time: 38 (eval) minutes; * Antonio [...] 0600 and on the weekends please page [phone]. * Minnie Begum PA - 02/18/2024 8:25 [...] site CDI with SANJANA wrap Tubes/Lines/Drains: RIJ/PAC, [place], Med Ctx, L pleural CT, TPW, Naqvi [...] 0600 and on the weekends please page [phone]. * Kim Ha ASH HANDLER - 02/17/2024 2:25 PM EDT Respiratory Care [...] plan since last visit. Hayder Graham MD [phone] Source Note - Hayder Graham MD - [...] given written informed consent. Hayder Graham MD [phone] * Hayder Graham MD - 02/17/2024 7:00 [...] given written informed consent. Hayder Graham MD [phone] documented in this encounter Miscellaneous Notes * [...] for follow-up Home Health & Hospice, [address] [place] [address] Cardiac Rehab, [address] [place] [address] Transportation: family or friend will provide Functional status prior to admission: Independent Home Environment: Others in the home: alone. Current Living Arrangements: home/apartment/condo. Accessibility Concerns:a few steps to enter 1 floor home. Current Functional Ability: Assistive Person and Equipment DME used at home: none DME Needed at Discharge: N/A Patient is insured through: Primary Insurance: [employer] Payor: [facility] / Plan: [facility] PPO / Product Type: *No [...] pain managed with scheduled Tylenol. Worked with [employer]. Ambulated in the roque multiple times during [...] anticipated Patient is insured through: Primary Insurance: [facility] Payor: [facility] / Plan: [facility] PPO / Product Type: *No Product type* / Secondary Insurance: N/A Last Physical Therapy Recommendation: home with home health (Str coming to stay for a week or two upon d/c) with to be determined (owns rolling walker, shower seat) Plan for discharge is: Home w/ Services Outpatient Agency/Support Group Needs: Homecare agency Home Health Services: Physical Therapy, Registered Nurse Agency Referrals: [facility]. [address] [place] [address] Transportation: family or friend will provide Barriers to discharge: Discharge planning Plan going forward: Service Care Management will continue to follow and assist with discharge planning and coordination of care as indicated. Anticipated Date of Discharge: 02/22/2024 Rhett Bell RN RN/CM - Cellphone: [phone] Pager: [phone] Covering Service RN/CM * Plan of Care [...] - 02/19/2024 10:44 AM EDT [facility] Karlos Garcia was seen today regarding participation in the outpatient Phase 2 Cardiac Rehabilitation at [facility]. 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 (Only good for 180 days) Any patient receiving care in [place] must abide by [place] law. The hierarchy [...] The agent with financial power of research attorney or a conservator appointed in accordance [...] steady place to sleep or slept in [facility] (including now)?: No In the past 12 months has the [email or web address], gas, oil, or water [employer] threatened to shut off services in your [...] [address] [facility] [address] Physical address: [address] [facility], [address] Social & Family Supports: All names listed [...] Information: none noted Health/Prescription Coverage: Primary Insurance: [facility] Payor: [facility] / Plan: [facility] PPO / Product Type: *No Product type* / Secondary Insurance: N/A ; Prescription Coverage: Yes Preferred Pharmacy: [id number] [address] Status: Patient is a : No Primary Care Provider confirmed: Aparna Jordan APRN [phone] Patient/Caregiver Goals of Treatment: dc to home Potential Needs for Transition of Care: home health care Agency Referrals: I have met with the patient to: discuss discharge planning needs. provide the [facility], Office of Care Management letter from the Orthodontic Band Maker pertaining to rehab referrals. provide a letter describing our affiliations within the [facility] and educate about their right to choose where referrals are sent. provide a list of Home Health Agencies / Durable Medical Equipment vendors which serve their preferred geographic area. provided patient with [facility] Star Quality Rating handout. They have requested referrals to: [facility] [address] [place] [address] Note routed to a Tram Operator who will communicate referrals to facilities [...] daughter, Cielo, will be coming in from [place] on 02/18, to stay with him , [...] Reina Greene RN CM, BSN, CMGT- Ext [phone] * Plan of Care - Binta Trinidad [...] Operative Note Patient Name: Karlos Garcia : [id number] MR#: [id number] Case Date: 02/17/2024 Surgeon: Surgeon(s) and Role: * Hayder Graham MD - Primary * Neftali Menon PA - Physician Pressed Or Blown Glass Worker Preoperative diagnosis: CAD Postoperative diagnosis: CAD, [...] mL Drains: Mediastinal and Left pleural Disposition: [facility] Condition: doing well without problems Attestation: Case Date: 02/17/2024 I performed this procedure without the involvement of a resident. HAYDER GRAHAM MD 02/17/2024 * Op Note - Hayder Graham MD - 02/17/2024 8:20 AM EDT [facility] Operative Note Patient Name: Karlos Garcia : [id number] MR#: [id number] Case Date: 02/17/2024 Surgeon: Surgeons and Role: * Hayder Graham MD - Primary * Neftali Menon PA - Physician Pressed Or Blown Glass Worker Preoperative diagnosis: CAD Postoperative diagnosis: CAD, [...] mL Drains: Mediastinal and Left pleural Disposition: [facility] Procedure Description: The patient was brought [...] PM EST Office Visit Cardiology at [address] [address] Neftali Ernandez MD [facility] [place] [address] Scheduled Orders Name Type Priority Associated Diagnoses [...] Aortic Valve Open W Cardiopulmonary Bypass Homogrf/Stent (60393) Yes 02/17/2024 7:28 AM EDT CAD Cabg, Artery-Vein, Two (65082) Yes 02/17/2024 7:28 AM EDT CAD Cabg, Arterial, Single (08967) Yes 02/17/2024 7:28 AM EDT CAD Endoscopy W/Video-Asst Vein [place], Cabg (21003) Yes 02/17/2024 7:28 AM EDT CAD POCT [...] CHEMISTRY ORDERABLE S [facility] [place] [address] * (ABNORMAL) Basic Metabolic Panel (non-fasting) (02/23/2024 [...] MD CHEMISTRY ORDERABLES [facility] [place] [address] * Potassium (02/22/2024 4:30 AM EDT) Potassium [...] CHEMISTRY ORDERABLE S [facility] [place] [address] * (ABNORMAL) Basic Metabolic Panel (non-fasting) (02/21/2024 [...] MD CHEMISTRY ORDERABLES [facility] [place] [address] * Lactate, whole blood, send to lab ([facility] (02/21/2024 9:45 AM EDT) [facility] Lactate WB 2.0 0.5 - 2.2 mmol/L [facility] Blood 02/21/2024 9:45 AM EDT 02/21/2024 9:52 AM EDT Narrative Resulting Agency Comment Spec In Lab Hayder Graham MD CHEMISTRY ORDERABLE S Performing Organization Address [facility] Co de Phone Number [facility] [place] [address] * (ABNORMAL) Hepatic Function Panel (02/21/2024 9:45 AM EDT) [facility] Protein, Total 5.7(L) 6.1 - 8.0 g/dL [...] CHEMISTRY ORDERABLE S [facility] [place] [address] * Lipase (02/21/2024 9:45 AM EDT) Lipase 56 0 - 60 unit/L [facility] Blood 02/21/2024 9:45 AM EDT 02/21/2024 9:52 AM EDT Narrative Resulting Agency Comment Spec In Lab Hayder Graham MD CHEMISTRY ORDERABLE S [facility] [place] [address] * Amylase (02/21/2024 9:45 AM EDT) Amylase 69 28 - 100 unit/L [facility] Blood 02/21/2024 9:45 AM EDT 02/21/2024 9:52 AM EDT Narrative Resulting Agency Comment Spec In Lab Hayder Graham MD CHEMISTRY ORDERABLE S Performing Organization Address City/[facility]/ZIP Co de Phone Number [facility] [place] [address] * Potassium (02/21/2024 3:08 AM EDT) Potassium [...] CHEMISTRY ORDERABLE S [facility] [place] [address] * XR Chest PA & Lateral (Generic) (02/20/2024 10:19 AM EDT) WORKSTATION ID [id number] RAD Anatomical Region Laterality Modality Chest N/A Digital Radiogra phy Impressions 02/20/2024 1:11 PM EDT Small pleural effusions. No pneumothorax Thank you for letting us participate in the care of this patient. ??If you are a health care provider and have any questions regarding this report, please contact the number below. ??For patients who have questions please contact the health youth care professional that requested your imaging first. ? Narrative 02/20/2024 1:11 PM EDT EXAMINATION: XR CHEST PA AND LATERAL (GENERIC) CLINICAL HISTORY: s/p AVR/CABGx3 TECHNIQUE: PA and lateral views of the chest COMPARISON: 02/17/2024 FINDINGS: Support devices: Interval removal of Valmy-Kaila catheter, endotracheal tube and mediastinal chest tubes The cardiac silhouette is stable status post median sternotomy, CABG and aortic valve replacement. There are small pleural effusions. No pneumothorax. Procedure Note Rogerio Cruz MD - 02/20/2024 EXAMINATION: XR CHEST PA AND LATERAL (GENERIC) CLINICAL HISTORY: s/p AVR/CABGx3 TECHNIQUE: PA and lateral views of the chest COMPARISON: 02/17/2024 FINDINGS: Support devices: Interval removal of Valmy-Kaila catheter, endotracheal tubeand mediastinal chest tubes The [...] patients who have questions please contactthe health youth care professional that requested your imaging first. Hayder Graham MD IMG DX ORDERABLES * Scan, Peripheral Blood (02/20/2024 4:23 AM EDT) Pathologist [facility] Plat estimate Decreased [facility] RBC Morphology Normal [facility] Blood 02/20/2024 4:23 AM EDT 02/20/2024 4:42 AM EDT Narrative Resulting Agency Comment Spec In Lab Minnie FRENCH HEMATOLOGY CECILIO ALEMAN [facility] [place] [id number] * (ABNORMAL) Differential, Automated (02/20/2024 4:23 AM EDT) [facility] Neutrophil % 81.7 % [facility] Neutrophil Absolute 10.37(H) 1.70 - 6.10 x10(3)/mc L [facility] Lymph % 7.4 % [facility] Lymphocytes Abs 0.9 0.9 - 3.2 x10(3)/mc L [facility] Monocyte % 9.7 % [facility] Monocyte Abs 1.2(H) 0.3 - 0.9 x10(3)/mc L [facility] Eos % 0.1 % [facility] Eosinophils Abs 0.0 0.0 - 0.4 x10(3)/mc L [facility] Basophil % 0.2 % [facility] [...] HEMATOLOGY CECILIO ALEMAN [facility] [place] [address] * (ABNORMAL) Hemogram (02/20/2024 4:23 AM EDT) [...] [facility] NRBC% auto 0.0 % [facility] NRBC Absolute 0.000 0.000 - 0.000 x10(3)/mc L [facility] Blood 02/20/2024 4:23 AM EDT 02/20/2024 4:42 AM EDT Narrative Resulting Agency Comment Spec In Lab Minnie FRENCH HEMATOLOGY CECILIO ALEMAN [facility] [place] [address] * (ABNORMAL) Basic Metabolic Panel (non-fasting) (02/20/2024 4:23 AM EDT) Glucose 113 65 - 199 mg/dL [facility] Comment:Diabetes: >=200 mg/d L plus symptoms Blood Urea Nitrogen 20 10 - 20 mg/dL [facility] Comment:result rechecked-[place] Creatinine 0.71(L) 0.80 - 1.50 mg/dL [facility] [...] MD CHEMISTRY ORDERABLE S Performing Organization Address [facility] Co de Phone Number [facility] [place] [address] * Potassium (02/19/2024 3:57 AM EDT) Potassium [...] MD CHEMISTRY ORDERABLE S Performing Organization Address [facility]/ZIP Co de Phone Number [facility] [place] [address] * POCT Glucose (02/18/2024 8:24 AM EDT) Glucose, POC 157 65 - 199 mg/dL [facility] Comment: Supplemental ranges: <140 mg/dL before meals <180 mg/dL all other times of the day Blood 02/18/2024 8:24 AM EDT 02/18/2024 8:24 AM EDT Hayder Graham MD POINT OF CARE TEST ORDERABLES Performing Organization Address City/[facility]/ZIP Co de Phone Number [facility] [place] [address] * Scan, Peripheral Blood (02/18/2024 1:40 AM EDT) Plat estimate Decreased [facility] RBC Morphology Normal [facility] Blood 02/18/2024 1:40 AM EDT 02/18/2024 1:56 AM EDT Narrative Resulting Agency Comment Spec In Lab Neftali FRENCH HEMATOLOGY ORDER OLE Performing Organization Address City/[facility] Co de Phone Number [facility] [place] [address] * (ABNORMAL) Differential, Automated (02/18/2024 1:40 AM EDT) [facility] Neutrophil % 87.1 % [facility] Neutrophil Absolute 15.03(H) 1.70 - 6.10 x10(3)/mc L [facility] Lymph % 3.0 % [facility] Lymphocytes Abs 0.5(L) 0.9 - 3.2 x10(3)/mc L [facility] Monocyte % 9.1 % [facility] Monocyte Abs 1.6(H) 0.3 - 0.9 x10(3)/mc L [facility] Eos % 0.0 % [facility] Eosinophils Abs 0.0 0.0 - 0.4 x10(3)/mc L [facility] Basophil % 0.2 % [facility] [...] HEMATOLOGY ORDER OLE [facility] [place] [address] * (ABNORMAL) Hemogram (02/18/2024 1:40 AM EDT) [...] RDW Standard Deviation 39.9 36.0 - 45.0 [facility] RDW coefficient of variation 13.2 11.4 - 13.8 % [facility] Mean Platelet Volume 9.9 7.6 - 12.9 fL [facility] NRBC% auto 0.0 % [facility] NRBC Absolute 0.000 0.000 - 0.000 x10(3)/mc L [facility] Blood 02/18/2024 1:40 AM EDT 02/18/2024 1:56 AM EDT Narrative Resulting Agency Comment Spec In Lab Neftali FRENCH HEMATOLOGY ORDER OLE [facility] [place] [place] [address] * (ABNORMAL) Basic Metabolic Panel (non-fasting) (02/18/2024 [...] CHEMISTRY ORDERABLE S [facility] [place] [address] * (ABNORMAL) Troponin (02/18/2024 1:40 AM EDT) Pathologist [facility] Troponin-T, High Sensitivity 342(H) <=22 ng/L [facility] [...] be found in the [facility] Test Catalog Troponin - [facility] Test Catalog Reference: Fourth Hawley Definition of Myocardial Infarction. Journal of the [place] 2018;72:3626-4196 Blood 02/18/2024 1:40 AM EDT 02/18/2024 1:56 AM EDT Narrative Resulting Agency Comment Spec In Lab Hayder Graham MD CHEMISTRY ORDERABLE S Performing Organization Address [facility] Co de Phone Number [facility] [place] [address] * POCT Glucose (02/17/2024 8:13 PM EDT) Glucose, POC 142 65 - 199 mg/dL [facility] Comment: Supplemental ranges: <140 mg/dL before meals <180 mg/dL all other times of the day Blood 02/17/2024 8:13 PM EDT 02/17/2024 8:13 PM EDT Hayder Graham MD POINT OF CARE TEST ORDERABLES Performing Organization Address [facility] de Phone Number [facility] [place] [address] * POCT Glucose (02/17/2024 5:42 PM EDT) Glucose, POC 160 65 - 199 mg/dL [facility] Comment: Supplemental ranges: <140 mg/dL before meals <180 mg/dL all other times of the day Blood 02/17/2024 5:42 PM EDT 02/17/2024 5:42 PM EDT Hayder Graham MD POINT OF CARE TEST ORDERABLES Performing Organization Address [facility] Co de Phone Number [facility] [place] [address] * Hemoglobin (02/17/2024 5:42 PM EDT) Hemoglobin 13.7 13.7 - 16.5 g/dL [facility] Blood 02/17/2024 5:42 PM EDT 02/17/2024 6:10 PM EDT Narrative Resulting Agency Comment Spec In Lab Hayder Graham MD HEMATOLOGY ORDERABL ES Performing Organization Address [facility]/ZIP Co de Phone Number [facility] [place] [address] * Potassium (02/17/2024 5:42 PM EDT) Pathologist [facility] Potassium 4.3 3.5 - 5.0 mmol/L [facility] [...] MD CHEMISTRY ORDERABLE S Performing Organization Address [facility] Co de Phone Number [facility] [place] [address] * (ABNORMAL) BLOOD GAS 2 ARTERIAL (02/17/2024 [...] [facility] FIO2 Art 40 % [facility] PF Ratio Art 195 [facility] Blood 02/17/2024 4:18 PM EDT 02/17/2024 4:18 PM EDT Hayder Graham MD POINT OF CARE TEST ORDERABLES Performing Organization Address City/State/[facility] Co de Phone Number [facility] [place] [address] * XR Chest One View (02/17/2024 1:44 PM EDT) [employer] [facility] [employer] [facility] WORKSTATION ID [id number] RAD Anatomical Region Laterality Modality Chest N/A Digital Radiogra phy Impressions 02/17/2024 2:12 PM EDT 1. ??No definite pleural fluid collection or pneumothorax. 2. ??Right IJ Valmy-Kaila catheter tip terminates in a descending branch of the right pulmonary artery. Suggest catheter retraction. 3. ??Additional support lines and tubes as above. Thank you for letting us participate in the care of this patient. ??If you are a health care provider and have any questions regarding this report, please contact the number below. ??For patients who have questions please contact the health youth care professional that requested your imaging first. ? Narrative 02/17/2024 2:12 PM EDT EXAMINATION: XR CHEST ONE VIEW CLINICAL HISTORY: s/p avr/cabg eval effusions TECHNIQUE: 1 view of the chest COMPARISON: Chest x-ray 01/09/2024, chest CT 02/03/2024 FINDINGS: ET tube tip terminates 5.2 cm above the carlos. Right IJ Valmy-Kaila catheter tip terminates in a descending branch [...] 5.2 cm above the carlos. Right IJ Valmy-Ganzcatheter tip terminates in a descending branch of [...] fluid collection or pneumothorax. 2. Right IJ Valmy-Kaila catheter tip terminates in a descending branch ofthe right pulmonary artery. Suggest catheter retraction. 3. Additional support lines and tubes as above. Thank you for letting us participate in the care of this patient. If youare a health care provider and have any questions regarding this report,please contact the number below. For patients who have questions please contactthe health youth care professional that requested your imaging first. Hayder Graham [...] [facility] FIO2 Art 100 % [facility] PF Ratio Art 320 [facility] Blood 02/17/2024 1:31 PM EDT 02/17/2024 1:31 PM EDT Hayder Graham MD POINT OF CARE TEST ORDERABLES [facility] [place] [address] * (ABNORMAL) Coox2 (02/17/2024 1:21 PM EDT) [...] TEST ORDERABLES [facility] [place] [address] * (ABNORMAL) BLOOD GAS 2 ARTERIAL (02/17/2024 [...] OF CARE TEST ORDERABLES Performing Organization Address [facility] Co de Phone Number [facility] [place] [address] * (ABNORMAL) Fibrinogen (02/17/2024 12:10 PM EDT) [...] MD HEMATOLOGY ORDERABLE S Performing Organization Address [facility] Co de Phone Number [facility] [place] [address] * (ABNORMAL) Thrombin time (02/17/2024 12:10 PM [...] MD HEMATOLOGY ORDERABLE S Performing Organization Address [facility] Co de Phone Number [facility] [place] [address] * APTT (02/17/2024 12:10 PM EDT) Partial [...] MD HEMATOLOGY ORDERABLE S Performing Organization Address [facility]/ZIP Co de Phone Number [facility] [place] [address] * (ABNORMAL) Prothrombin Time (02/17/2024 12:10 PM [...] HEMATOLOGY ORDERABLE S [facility] [place] [address] * (ABNORMAL) Hemogram (02/17/2024 12:10 PM EDT) [...] [facility] NRBC% auto 0.0 % [facility] NRBC Absolute 0.000 0.000 - 0.000 x10(3)/mc L [facility] Blood 02/17/2024 12:1 0 PM EDT 02/17/2024 12:19 PM EDT Narrative Resulting Agency Comment Spec In Lab Tara York MD HEMATOLOGY ORDERABLE S [facility] [place] [address] * (ABNORMAL) BLOOD GAS 2 ARTERIAL (02/17/2024 [...] CARE TEST ORDERABLES [facility] [place] [address] * (ABNORMAL) BLOOD GAS 2 ARTERIAL (02/17/2024 [...] OF CARE TEST ORDERABLES Performing Organization Address [facility]/ZIP Co de Phone Number [facility] [place] [address] * (ABNORMAL) Hemoglobin and Hematocrit, blood (02/17/2024 11:04 AM EDT) Pathologist [facility] Hemoglobin 9.6(L) 13.7 - 16.5 g/dL [facility] [...] MD HEMATOLOGY ORDERABL ES Performing Organization Address City/[facility]/ZIP Co de Phone Number [facility] [place] [address] * (ABNORMAL) Platelet count (02/17/2024 11:04 AM EDT) Pathologist [facility] Platelet 106(L) 145 - 357 x10(3)/mc L [facility] Immature Plt % 1.6 0.0 - 7.4 % [facility] Comment: Limitation of the Immature Platelet Fraction (IPF)-May be less reliable when the platelet count is less than 21o081/uL due to statistical imprecision. The IPF value [...] in a decreased state of production. References: [employer] The Clinical Value of the Immature Platelet Fraction (IPF) in Cell Recovery Document Number [id number] 03/2011 [employer] The Role of the Immature Platelet Fraction (IPF) in the Differential Diagnosis of Thrombocytopenia, Document [id number] V002/15/14 P014 Blood 02/17/2024 11:0 4 AM EDT 02/17/2024 11:12 AM EDT Narrative Resulting Agency Comment Spec In Lab Hayder Graham MD HEMATOLOGY ORDERABL ES Performing Organization Address City/State/[facility] Co de Phone Number [facility] [place] [address] * (ABNORMAL) Fibrinogen (02/17/2024 11:04 AM EDT) [...] HEMATOLOGY ORDERABL ES [facility] [place] [address] * (ABNORMAL) BLOOD GAS 2 ARTERIAL (02/17/2024 [...] CARE TEST ORDERABLES [facility] [place] [address] * (ABNORMAL) BLOOD GAS 2 ARTERIAL (02/17/2024 [...] CARE TEST ORDERABLES [facility] [place] [address] * Surgical Pathology Report (02/17/2024 10:01 AM EDT) Final Diagnosis [id number] ? Location: [facility]; [facility]; The signing pathologist has (i) examined the relevant preparation(s) for the specimen(s) and (ii) rendered or confirmed the diagnosis(es). . ?Surgical Pathology DIAGNOSIS Aortic valve leaflets, excision: Valve leaflets with myxoid degeneration, nodular fibrosis and dystrophic calcifications. Electronically signed by: ?Lindsay FERNANDEZ, Livier Gonzalez Verified: ??02/24/2024 13:49 ??Pathologist Performed at: ??-[facility], [place] [address] Orthodontic Band Maker: Job Brewer MD, FCAP, ??CLIA Certificate: [id number] SPECIMEN(S) SUBMITTED A - Aortic Valve Leaflets, [...] Sections Processing Blocks submitted for decalcification: A1. Contract Processor sections in 1 cassette labeled A1. ??ajw 02/24/2024 1:49 PM EDT [facility] AORTIC STRUCTURE / Unknown 02/17/2024 10:01 AM EDT 02/17/2024 10:01 AM EDT Hayder Graham MD PATHOLOGY/CYTOLOGY ORDERABLES Performing Organization Address City/[facility]/ZIP Co de Phone Number [facility] [place] [address] * Specimen to Pathology (02/17/2024 10:01 AM EDT) AP Specimen 02/17/2024 10:0 1 AM EDT 02/17/2024 10:01 AM EDT Narrative [facility] - 02/17/2024 10:01 AM EDT Specimen requisition ordered. ??Separate Pathology report to follow Hayder Graham MD PATHOLOGY/CYTOLOGY ORDERABLES Performing Organization Address City/[facility]/ZIP Co de Phone Number [facility] [place] [address] * (ABNORMAL) BLOOD GAS 2 ARTERIAL (02/17/2024 [...] CARE TEST ORDERABLES [facility] [place] [address] * (ABNORMAL) BLOOD GAS 2 VENOUS (02/17/2024 9:34 AM EDT) pH, Venous 7.22(Criti marquez) 7.32 - 7.42 [facility] Comment:Noted by musical instrument supervisor. PCO2, Venous 43 41 - 51 mmHg [facility] Comment:Noted by musical instrument supervisor. PO2, Venous 57(H) 25 - 40 mmHg [facility] Comment:Noted by musical instrument supervisor. Bicarbonate, Venous 17.1 mmol/L [facility] Comment:Noted by musical instrument supervisor. Base Excess, Venous -10.6 mmol/L [facility] Comment:Noted by musical instrument supervisor. Hgb Blood Gas 11.2(L) 13.7 - 16.5 g/dL [facility] Comment:Noted by musical instrument supervisor. Oxyhemoglobin, Venous 86.5 % [facility] Comment:Noted by musical instrument supervisor. Carboxyhemoglob in, Venous 0.3 % [facility] Comment: Noted by musical instrument supervisor. Nonsmokers: 0.5-1.5% COHB Smokers: Variable, but usually less than 10% Toxic: 20-30% COHB Lethal: Greater than 60% COHB Methemoglobin, Venous 0.0 <=1.5 % [facility] Comment:Noted by musical instrument supervisor. Na Whole Blood 156(H) 135 - 145 mmol/L [facility] Comment:Noted by musical instrument supervisor. [...] [facility] Comment:Noted by musical instrument supervisor. Gluc Whole Bld 132 65 - 199 mg/dL [facility] Comment: Noted by musical instrument supervisor. Diabetes: >=200 mg/dL plus symptoms Lactate WB 1.0 0.5 - 2.2 mmol/L [facility] Comment:Noted by musical instrument supervisor. Blood Gas Source Venous [facility] Blood 02/17/2024 9:34 AM EDT 02/17/2024 9:34 AM EDT Hayder Graham MD POINT OF CARE TEST ORDERABLES [facility] [place] [address] * (ABNORMAL) BLOOD GAS 2 ARTERIAL (02/17/2024 [...] OF CARE TEST ORDERABLES Performing Organization Address [facility] Co de Phone Number [facility] [place] [address] * POCT Glucose (02/17/2024 6:38 AM EDT) Glucose, POC 98 65 - 199 mg/dL [facility] Comment: Supplemental ranges: <140 mg/dL before meals <180 mg/dL all other times of the day Blood 02/17/2024 6:38 AM EDT 02/17/2024 6:38 AM EDT Hayder Graham MD POINT OF CARE TEST ORDERABLES Performing Organization Address [facility] Co de Phone Number [facility] [place] [address] * Transesophageal Echo/OR (02/17/2024 6:33 AM EDT) [...] PM Ordering Physician: TARA YORK Referring Physician: APRANA JORDAN Procedure Note Tara York MD - [...] [facility] cardiac [...] Routine documented in this encounter Care Teams Trip Follower Relationship Specialty Start Date End Date Aparna Jordan APRN PCP - General Family Medicine 10/21/23 05/26/24 documented as of this encounter
--- OUTSIDE RECORDS SUMMARY | 2024-06-26 08:29 | XMS_ITS | Encounter Summary ---
Author Organization [facility] Address [facility] [place] [address] Care Team Providers Care Document Processing Specialist Name Role Phone Vanessa Christian MAURI Primary Care Provider [phone] Reason for Visit * Consultation (Routine) - Closed Specialty Diagnoses / Procedures Referred By Contac t Referred To Contact Cardiac Surgery Diagnoses Nonrheumatic aortic valve stenosis significant - TAVR ( defers to Card Surg d/t age) Neftali Ernandez MD [facility] [place] [address] Zak Farmer MD [facility] [place] [address] Referral ID Status Reason Start Date Expiration Date V isits Requested Visits Authorized [id number] Closed Consult, Test & Treat 10/21/2023 10/20/2024 1 1 Encounter Details Date Type Department Care Team (Late st Contact Info) Description 01/09/2024 1:40 PM EDT Office [place] [address] Zak Farmer MD [facility] [place] [address] Nonrheumatic aortic valve stenosis Social [...] office. Best personal regards, Zak Farmer MD [phone] In aggregate 55 minutes were spent evaluating [...] PM EST Office Visit Cardiology at [address] [place] [id number] Neftali Ernandez MD [facility] [place] [address] documented as of this encounter Results * [...] services counselor that requested your imaging first. Zak [...] MD CHEMISTRY ORDERABLE S [facility] [place] [address] * Hepatic Function Panel (01/09/2024 2:58 PM EDT) Pathologist [facility] Protein, Total 6.7 6.1 - 8.0 g/dL [...] ORDERABLE S Performing Organization Address [facility] Co de Phone Number [facility] [place] [address] * Prothrombin Time (01/09/2024 2:58 PM EDT) [facility] Prothrombin Time 10.6 9.4 - [...] ORDERABL ES Performing Organization Address [facility]/ZIP Co de Phone Number [facility] [place] [address] * Type and Screen Future Surgery, [place] [...] Farmer MD BLOOD BANK LAB CECILIO ALEMAN [facility] Organization Address City/State/ZIP Co de Phone Number [facility] [place] [address] documented in this encounter Visit Diagnoses Diagnosis Nonrheumatic aortic valve stenosis Aortic valve disorders Nonrheumatic aortic valve stenosis Aortic valve disorders documented in this encounter Care Teams Document Processing Specialist Relationship Specialty Start Date End Date Vanessa Christian APRN PCP - General Family Medicine 10/21/23 05/26/24 documented as of this encounter
--- OUTSIDE RECORDS SUMMARY | 2024-06-26 08:29 | XMS_ITS | Encounter Summary ---
Author Organization [facility] [place] [address] Care Team Providers Care Cover Cutter Name Role Phone Vanessa Christian MAURI Primary Care Provider [phone] Reason for Visit * Auth/Cert (Routine) Specialty [...] W RHC (WRVU 5.9) Rima Dickinson MD [facility] [place] [address] [facility] Referral ID Status Reason Start Date Expiration Date Visits Re quested Visits Authorized [id number] 1 1 Encounter Details Date Type Department Care Team (Late st Contact Info) Description 02/03/2024 10:00 AM EDT - 02/03/2024 11:00 AM EDT Surgery [place] [address] Saira Lua MD [facility] [place] [address] CARDIAC CATHETERIZATION Social History Tobacco Use Types [...] lbs Follow-up Visits Follow up with your produce associate in 2-4 weeks Access Site 'Black and Blue' and tenderness is expected during the first week Call if you noted a mass (lump) greater than the size of a ellis Call Office with any Questions and if you have any of the following Clarence Lane M.D [facility] Polystyrene Molding Machine Tender #: [phone] * Attachments The following attachments cannot be sent through Care Everywhere. * CAD (Coronary Artery Disease): General Info (Puerto [place]ican) * Coronary Angiogram: Post-op ([place]ican) documented in this encounter Medications at Time [...] Lane MD - 02/03/2024 11:48 AM EDT [facility] Interventional Cardiology Adult Pre-Procedure H&P Update: Cardiac Catheterization Karlos Anthony [id number] 1960 Chief Complaint: Aortic stenosis HPI: Mr. [...] is inthe chart Clarence Lane MD [facility] 02/03/24 11:48 AM documented in this encounter Miscellaneous Notes * Brief Op Note - Clarence Lane MD - 02/03/2024 12:51 PM EDT Preliminary Cardiac Catheterization Procedure Note: Patient Name: Karlso Anthony : [id number] MR#: [id number] Case Date: 02/03/2024 Polystyrene Molding Machine Tender: Surgeon(s) and Role: * Saira Lua MD [...] PM EST Office Visit Cardiology at [address] [address] Neftali Ernandez MD [facility] [place] [address] Scheduled Orders Name Type Priority Associated Diagnoses [...] Modality Other Narrative 02/12/2024 3:47 PM EDT ?[facility] ? Cardiac Catheterization/Intervention Report ? Patient Name: Patenaude, Karlos ? Procedure Date: 02/03/2024 ? A #: [id number] ? Primary Physician: Saira Lua ? Case #: [id number] ? File Name: [id number] ? Catheterization Order Number: [id number] ? [facility] ? Final Report [place], [place] ? Patient Name: ? Karlos Patenaude ? ID#: ?[id number] ? : ?1960 ? Procedure Date: ? [...] Procedure Note Saira Lua MD - 02/12/2024 [facility] Cardiac Catheterization/Intervention Report Patient Name: Karlos Anthony Procedure Date: 02/03/2024 A #: [id number] Primary Physician: Saira Lua Case #: [id number] File Name: [id number] Catheterization Order Number: [id number] [facility] FinalReport [place], [place] Patient Name: Karlos Anthony ID#:[id number] :1960 Procedure Date: February 03, 2024 Case [...] was designated as ASA Class III. The [facility] clinical frailty scale is 3: [...] (Bezet) 372 ms MUSE SYSTEM Calculated P [place] 59 degrees MUSE SYSTEM Calculated R [place] 34 degrees MUSE SYSTEM Calculated T [place] 63 degrees MUSE SYSTEM INTERPRETATION Sinus bradycardia [...] MD) documented in this encounter Care Teams Cover Cutter Relationship Specialty Start Date End Date Vanessa Christian APRN PCP - General Family Medicine 10/21/23 05/26/24 documented as of this encounter
--- OUTSIDE RECORDS SUMMARY | 2024-06-26 08:29 | XMS_ITS | Encounter Summary ---
Author Organization [facility] [facility] [place] [address] Care Team Providers Care New Accounts Banking Representative Name Role Phone Vanessa Christian MAURI Primary Care Provider [phone] Reason for Visit * Auth/Cert (Routine) Specialty [...] ARTERIAL GRAFT (WRVU 7.93) Zak Farmer MD [facility] [place] [address] [facility] Referral ID Status Reason Start Date Expiration Date Visits Re quested Visits Authorized [id number] 1 1 Encounter Details Date Type Department Care Team (Late st Contact Info) Description 02/17/2024 7:35 AM EDT Anesthesia Event Main Operating Room [facility] [place] [phone] Roman York MD [facility] [place] [address] Anesthesia Record Procedure Summary Procedure Name Responsible [...] by Sadiq Woo RN PIV 02/17/24; 0715; [id number] catheter system; 18 gauge; cephalic vein (lateral [...] th e electric, gas, oil, or water [employer] threatened to shut off services in your [...] Procedure Summary Date: 02/17/24 Room / Location: [facility] OR [address] [place] [address] MAIN OR Anesthesia Start: 734 Anesthesia Stop: [...] shown include unfiled device data. Patient Location: [facility] Level of Consciousness: Sedated (Pharmacologic/Intentional) Pain [...] 08/14/2023 ??? Nevus of face 09/26/2023 Right spiritism No past surgical history on file. Social [...] PM EST Office Visit Cardiology at [address] [place] [address] Neftali Ernandez MD [facility] [place] [address] documented as of this [...] mg documented in this encounter Care Teams New Accounts Banking Representative Relationship Specialty Start Date End Date Vanessa Christian APRN PCP - General Family Medicine 10/21/23 05/26/24 documented as of this encounter
--- OUTSIDE RECORDS SUMMARY | 2024-06-26 08:29 | XMS_ITS | Encounter Summary ---
[place] [address] Care Team Providers Care Ferry Captain Name Role Phone Aparna Jordan MAURI Primary Care Provider [phone] Reason for Referral * Diagnostic Test (Routine) - New Request Specialty Diagnoses / Procedures Referred By Contac t Referred To Contact Cardiology Diagnoses S/P AVR Procedures Echocardiogram Transthoracic Neftali Menon PA [facility] [place] [address] [facility] [place] [address] Referral ID Status Reason Start Date Expiration Date Visits Requested Visits Authorized [id number] New Request Specialty Service Requested 02/24/2024 02/23/2025 1 1 * Consultation (Routine) - Authorized Specialty Diagnoses / Procedures Referred By Contac t Referred To Contact Cardiology Diagnoses S/P AVR Hayder Graham MD [facility] [place] [address] Cardiac Rehab, [facility] [address] [place] [address] [place] [address] Referral ID Status Reason Start Date Expiration Date Visits Requested Visits Authorized [id number] Authorized Consult, Test & Treat 02/24/2024 08/22/2024 36 36 * Home Health Care (Routine) - Authorized Specialty Diagnoses / Procedures Referred By Sixto mendoza Referred To Contact Diagnoses S/P AVR Hayder Graham MD [facility] [place] [address] Referral ID Status Reason Start Date Expiration Date Visits Requested Visits Authorized [id number] Authorized Consult, Test & Treat 02/24/2024 08/22/2024 [...] ARTERIAL GRAFT (WRVU 7.93) Hayder Graham MD [facility] [place] [address] [facility] Referral ID Status Reason Start Date Expiration Date Visits Re quested Visits Authorized [id number] 1 1 Encounter Details Date Type Department Care Team (Latest Contact Info) Description 02/17/2024 5:43 AM EDT - 02/24/2024 11:23 AM EDT Hospital Encounter Heart and Vascular Unit Level 4 [place] [address] Hayder Graham MD [facility] [place] [address] S/P AVR (Primary Dx); Aortic valve stenosis, etiology of cardiac valve disease unspecified Discharge Disposition: Home with VNA Social History Tobacco Use Types Packs/Day Years Used Date Smoking Tobacco: Former Cigarettes Smokeless Tobacco: Never Comments:Quit 15 + years ago Alcohol Use Standard Drinks/Week Comments Yes 0 (1 standard drink = 0.6 oz pur e alcohol) rare [facility] Utilities Answer Date Recorded In [...] 1-2 weeks. Patient to follow up with Expediter Clerk, Neftali Ernandez MD , in 2 weeks. Patient to follow up with Cardiac Surgeon, Dr. Hayder Graham, with a chest x-ray, EKG, and Echo. Inpatient Provider Contact Information: [facility] Section of Cardiac Surgery [facility] [address] FAX [phone] Discharge Diagnoses (Hospital Problems) Primary Diagnoses: /CAD [...] 33.75) performed by Hayder Graham MD at [facility] MAIN OR PRO CABG, ARTERY-VEIN, TWO N/A 02/17/2024 @CABG, TWO VENOUS GRAFTS & ARTERIAL GRAFT (WRVU 7.93) performed by Hayder Graham MD at [facility] MAIN OR PRO ENDOSCOPY W/VIDEO-ASST VEIN HARVEST, CABG Left 02/17/2024 ENDOSCOPIC HARVEST VEIN(S) FOR CABG (WRVU 0.31) performed by Hayder Graham MD at [facility] MAIN OR PRO REPLACEMENT PROSTHETIC AORTIC VALVE OPEN W CARDIOPULMONARY BYPASS HOMOGRF/STENT N/A 02/17/2024 @REPLACE AORTIC VALVE, OPEN, W\CPB, W\PROSTHETIC VALVE (WRVU 41.32) performed by Hayder Graham MD at [facility] MAIN OR Prior To Admission Medications [...] insufficiency. He has glaucoma. He used to [employer] until about 15 years ago. He has undergone prior herniorrhaphy. 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 Major Procedures/Operations: 02/17/24 s/p avr/cabgx3 CABG x 3 JOSE->LAD SVG->dRCA SVG->OM1 EVH from LLE AVR with a 23 mm Inspiris Bioprosthesis Hospital Course: Karlos Garcia was admitted to [facility] on 02/17/2024 via the Same Day Program. He was brought to the operating room where Dr. Hyader Graham performed a tissue aortic valve replacement [...] Hayder Graham and/or the Cardiac Surgery Physician Chief Specialist Leed Team may be reached at . Antibiotic [...] Please refer to the card with the [place] Heart Association Guidelines for more information. You [...] Dr. Hayder Graham. You may use a [place] Track or treadmill but avoid any pulling [...] friends, go to a movie, go to rastafarian, etc. Heavy activities: No hunting, skiing, jogging, [...] should resume a low fat, low cholesterol, [place] Heart Association Diet. Driving: No driving until [...] while being managed by your PCP and/or Expediter Clerk. For future medication refills, please refer to your PCP and/or Expediter Clerk after your discharge from our service. Thank you REMOVE CHEST TUBE SUTURES ON OR AFTER 03/02/24 Home oxygen therapy: N/A Follow up appointments: You should follow up with your PCP, Aparna Jordan APRN, in 1-2 weeks. Our office will schedule an appointment with your Expediter Clerk, Neftali Ernandez MD , in 2 weeks. You have an appointment with your Cardiac Surgeon, Dr. Hayder Graham, 4 weeks with a chest x-ray, EKG, and Echo before your appointment. Cardiac Rehabilitation: Karlos Gracia was seen regarding participation in the outpatient Phase 2Cardiac Rehabilitation at [facility]. The patient agrees to a referral to this program. The referral will be sent at discharge and the patient should be contacted by the Program within 1- 2 weeks from discharge. Future Appointments and Orders Future Orders Complete By Expires Echocardiogram Transthoracic [50141 CPT(R)] 03/26/2024 09/25/2024 Process Instructions: Scheduling Instructions: Questions: Where will study be performed?: [facility] Does the patient have Congenital Heart Disease?: Does patient require sedation?: Sedation rationale: XR Chest PA & Lateral (Generic) [13246 37149 Custom] 03/26/2024 09/25/2024 Process Instructions: Scheduling Instructions: Questions: Portable exam?: Reason for exam and clinical history: s/p avr/cabg Clinical information / jerome questions for radiologist: Stat read required?: Date of injury if applicable: Requested Time: Where will study be performed?: [facility] Radiology Referral to Cardiac Rehab [BJP802 Custom] As directed Process Instructions: If no progress note charted, please enter Clinical details in comments. Scheduling Instructions: Questions: My question or request is: s/p AVR/CABG. Cardiac rehab at [facility]. Referral to Home Health [REF34 Custom] As directed Process Instructions: If no progress note charted, please enter Clinical details in comments. Scheduling Instructions: Comments: Please evaluate Karlos Garcia for admission to Home Health. [address] Phone Number: Date of : 1960 Inpatient DOCUMENTATION FOR VNA SERVICES (INCLUDING THOSE PATIENTS WITH MEDICARE COVERAGE REQUIRING HOME VNA SERVICES AND/OR HOSPICE SERVICES) PATIENT'S LOCATION: Karlos Garcia [address] [employer] [phone] Air Dispatcher's Name: self/family In discussion with the attending physician, it is certified that this patient is under their care and that they, or a Nurse Practitioner, or Physician Chief Specialist Leed who is working directly with them, hada [...] for services as follows: HOME HEALTH AGENCY: [facility] [address] [place] [address] RN orders: Cardiopulmonary assessment, incisional assessment, assess [...] issues please call the Cardiology Office at [phone] FOR MEDICARE ONLY: (please delete this section [...] APRN [address] / [place] [address] . All VNA agencies which cover the area of patient's residence have been reviewed, either verbally or in writing, and patient/family have chosen the home health care agency noted. Questions: Disciplines Requested: Nursing Physical Therapy Arrangements for VNA/home care: As above. Signed: NEFTALI MENON PA-C [facility] Section of Cardiac Surgery [facility] [address] FAX [phone] Date: 02/24/2024 CC: Aparna Jordan, MAURI Jordan, Aparna Sherman APRN [address] [place] [address] documented in this encounter Discharge Instructions * [...] Hayder Graham and/or the Cardiac Surgery Physician Chief Specialist Leed Team may be reached at . Antibiotic [...] Please refer to the card with the [place] Heart Association Guidelines for more information. You [...] Dr. Hayder Graham. You may use a [place] Track or treadmill but avoid any pulling [...] friends, go to a movie, go to rastafarian, etc. Heavy activities: No hunting, skiing, jogging, [...] should resume a low fat, low cholesterol, [place] Heart Association Diet. Driving: No driving until [...] while being managed by your PCP and/or Expediter Clerk. For future medication refills, please refer to your PCP and/or Expediter Clerk after your discharge from our service. Thank you REMOVE CHEST TUBE SUTURES ON OR AFTER 03/02/24 Home oxygen therapy: N/A Follow up appointments: You should follow up with your PCP, Aparna Jordan APRN, in 1-2 weeks. Our office will schedule an appointment with your Expediter Clerk, Neftali Ernandez MD , in 2 weeks. You have an appointment with your Cardiac Surgeon, Dr. Hayder Graham, 4 weeks with a chest x-ray, EKG, and Echo before your appointment. Cardiac Rehabilitation: Karlos Garcia was seen regarding participation in the outpatient Phase 2Cardiac Rehabilitation at [facility]. The patient agrees to a referral to [...] on the weekends please page [phone]. * Eric Barahona PA - 02/23/2024 9:27 [...] 0600 and on the weekends please page [phone]. * Tiffanie Owens - 02/22/2024 2:48 PM [...] d/c for 10 days. 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 He drives. He works Precautions/Special Considerations: STERNAL [...] LRAD and supervision Time IN / OUT: 8975-5746 Total Time: 30 minutes; TEFx2 Tiffanie Owens Pager: [phone] Physical Therapy Inpatient Rehabilitation Department * Romeo [...] 0600 and on the weekends please page [phone]. * Kelley Hinson, REEL TENDER - 02/21/2024 10:15 AM EDT Physical Therapy [...] d/c for 10 days. 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 He drives. He works Precautions/Special Considerations: STERNAL [...] LRAD and supervision Time IN / OUT: 3389-8116 Total Time: 25 minutes; TEF 2 Kelley Hinson PTA Pager: [phone] Physical Therapy Inpatient Rehabilitation Department * Louisa [...] 0600 and on the weekends please page [phone]. * Kelley Hinson PTA - 02/20/2024 3:32 PM EDT 02/20/24 9671 Evaluation & Treatment Document Type contact Total Minutes, Physical Therapy 0 Comment, Session Not Performed Checked in w/ pt this PM for ongoing PT services, pt politely declined, stating he had been dealing w/ nausea all day, made plan to see him tomorrow morning, will f/u at that time Kelley Hinson PTA Pager: [phone] Physical Therapy Inpatient Rehab Department * Louisa [...] 0600 and on the weekends please page [phone]. * Maris Benavides, PT - 02/19/2024 11:22 [...] d/c for 10 days. 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 He drives. He works. Precautions/Special Considerations: STERNAL [...] outlined inthis evaluation. MARIS BENAVIDES, PT Pager: [phone] Physical Therapy Inpatient Rehabilitation Department Time IN / OUT: 1164-6871 Total Time: 38 (eval) minutes; * Antonio [...] 0600 and on the weekends please page [phone]. * Minnie Begum PA - 02/18/2024 8:25 [...] 0600 and on the weekends please page [phone]. * Kim Ha RCP - 02/17/2024 2:25 [...] plan since last visit. Hayder Graham MD [phone] Source Note - Hayder Graham MD - [...] insufficiency. He has glaucoma. He used to [employer] until about 15 years ago. He has [...] given written informed consent. Hayder Graham MD [phone] * Hayder Graham MD - 02/17/2024 7:00 [...] given written informed consent. Hayder Graham MD [phone] documented in this encounter Miscellaneous Notes * [...] information for follow-up Home Health & Hospice, [address] [place] [address] Cardiac Rehab, [address] [place] [address] Transportation: family or friend will provide Functional status prior to admission: Independent Home Environment: Others in the home: alone. Current Living Arrangements: home/apartment/condo. Accessibility Concerns:a few steps to enter 1 floor home. Current Functional Ability: Assistive Person and Equipment DME used at home: none DME Needed at Discharge: N/A Patient is insured through: Primary Insurance: [facility] Payor: [facility] / Plan: [facility] PPO / Product Type: *No Product type* / Secondary Insurance: N/A Prescription Coverage: Yes Per provider, pt MR to discharge to home with home health. This plan was formulated with input frompatient and team. All are in agreement with plan. Michelle Main RN Office of Care Management * Plan of Care - Mishel Merirll RN - 02/23/2024 4:26 PM EDT OUTCOME [...] pain managed with scheduled Tylenol. Worked with [employer]. Ambulated in the roque multiple times during [...] anticipated Patient is insured through: Primary Insurance: [facility] [facility] Payor: [employer] / Plan: [facility] PPO / Product Type: *No Product type* / Secondary Insurance: N/A Last Physical Therapy Recommendation: home with home health (Str coming to stay for a week or two upon d/c) with to be determined (owns rolling walker, shower seat) Plan for discharge is: Home w/ Services Outpatient Agency/Support Group Needs: Homecare agency Home Health Services: Physical Therapy, Registered Nurse Agency Referrals: [facility]. [address] [place] [address] Transportation: family or friend will provide Barriers to discharge: Discharge planning Plan going forward: Service Care Management will continue to follow and assist with discharge planning and coordination of care as indicated. Anticipated Date of Discharge: 02/22/2024 Rhett Bell RN RN/CM - Cellphone: [phone] Pager: [phone] Covering Service RN/CM * Plan of Care [...] Yang RN - 02/19/2024 10:44 AM EDT [facility] Karlos Garcia was seen today regarding participation in the outpatient Phase 2 Cardiac Rehabilitation at [facility]. The patient agrees to a referral to [...] surrogate would be surrogate decision maker per [place] decision making law. (Only good for 180 days) Any patient receiving care in [place] must abide by [place] law. The hierarchy for surrogate decision making [...] (i) The agent with financial power of insurance defense attorney or a conservator appointed in [...] steady place to sleep or slept in [facility] (including now)?: No In the past 12 months has the [employer], gas, oil, or water [employer] threatened to shut off services in your [...] as: [address] [facility] [address] Physical address: [address] [facility], [address] Social & Family Supports: All names listed [...] noted Health/Prescription Coverage: Primary Insurance: [facility] Payor: [facility] / Plan: [facility] PPO / Product Type: *No Product type* / Secondary Insurance: N/A ; Prescription Coverage: Yes Preferred Pharmacy: [id number] AT [address] [address] Status: Patient is a : No Primary Care Provider confirmed: Aparna Jordan, MOLD STACKER [phone] Patient/Caregiver Goals of Treatment: dc to home Potential Needs for Transition of Care: home health care Agency Referrals: I have met with the patient to: discuss discharge planning needs. provide the [facility], Office of Care Management letter from the [employer] pertaining to rehab referrals. provide a letter describing our affiliations within the [facility] and educate about their right to choose where referrals are sent. provide a list of Home Health Agencies / Durable Medical Equipment vendors which serve their preferred geographic area. provided patient with [facility] Star Quality Rating handout. They have requested referrals to: [facility] [address] [place] [address] Note routed to a Child Welfare Specialist who will communicate referrals to facilities [...] Reina Greene RN CM, BSN, CMGT- Ext [phone] * Plan of Care - Binta Trinidad [...] Operative Note Patient Name: Karlos Garcia : [id number] MR#: [id number] Case Date: 02/17/2024 Surgeon: Surgeon(s) and Role: * Hayder Graham MD - Primary * Neftali Menon PA - Physician Chief Specialist Leed Preoperative diagnosis: CAD Postoperative diagnosis: CAD, intraoperative [...] mL Drains: Mediastinal and Left pleural Disposition: [facility] Condition: doing well without problems Attestation: Case Date: 02/17/2024 I performed this procedure without the involvement of a resident. HAYDER GRAHAM MD 02/17/2024 * Op Note - Hayder Graham MD - 02/17/2024 8:20 AM EDT [facility] Operative Note Patient Name: Karlos Garcia : [id number] MR#: [id number] Case Date: 02/17/2024 Surgeon: Surgeons and Role: * Hayder Graham MD - Primary * Neftali Menon PA - Physician Chief Specialist Leed Preoperative diagnosis: CAD Postoperative diagnosis: CAD, intraoperative [...] mL Drains: Mediastinal and Left pleural Disposition: [facility] Procedure Description: The patient was [...] PM EST Office Visit Cardiology at [address] [place] [address] Neftali Ernandez MD [facility] [address] Scheduled Orders Name Type Priority Associated Diagnoses [...] Aortic Valve Open W Cardiopulmonary Bypass Homogrf/Stent (60620) Yes 02/17/2024 7:28 AM EDT CAD Cabg, Artery-Vein, Two ([id number]) Yes 02/17/2024 7:28 AM EDT CAD Cabg, Arterial, Single (42917) Yes 02/17/2024 7:28 AM EDT CAD Endoscopy W/Video-Asst Vein [place], Cabg ([id number]) Yes 02/17/2024 7:28 AM EDT CAD POCT GLUCOSE Routine 02/17/2024 6:38 AM EDT TRANSESOPHAGEAL ECHOCARDIOGRAM IN THE OR Routine 02/17/2024 6:33 AM EDT Aortic valve stenosis, etiology of cardiac valve disease unspecified LAB SCAN 02/17/2024 12:00 AM EDT IMPLANTABLE DEVICES SCAN 02/17/2024 12:00 AM EDT documented in this encounter Results * Potassium (02/24/2024 4:42 AM EDT) Potassium 4.0 3.5 - 5.0 mmol/L [facility] [...] Lab Hayder Graham MD CHEMISTRY ORDERABLE S [facility] [place] [address] * (ABNORMAL) Basic Metabolic Panel (non-fasting) (02/23/2024 4:24 AM EDT) Glucose 117 65 - 199 mg/dL [facility] Comment:Diabetes: >=200 mg/d L plus symptoms Blood Urea Nitrogen 18 10 - 20 mg/dL [facility] Creatinine 0.71(L) 0.80 - 1.50 mg/dL [facility] Sodium 138 135 - 145 mmol/L [facility] Potassium 4.4 3.5 - 5.0 mmol/L [facility] Comment: Please note: ??Patients with WBC >100,000 may have falsely elevated Potassium levels. ??For accurate Potassium quantification in these patients send serum separator tube (gold top) for subsequent determinations. ??Contact the Clinical Chemistry Laboratory if there are any questions. Chloride 101 98 - 107 mmol/L [facility] Carbon Dioxide 26 22 - 31 mmol/L [facility] Anion Gap 11 5 - 15 mmol/L [facility] Calcium 8.8 8.5 - 10.5 mg/dL [facility] Est Glomerular Filtration Rate 102 >=60 mL/min/1. 73 m?? [facility] [...] In Lab Romeo Carpio MD CHEMISTRY ORDERABLES [facility] [place] [address] * Potassium (02/22/2024 4:30 AM EDT) Potassium 3.5 3.5 - 5.0 mmol/L [facility] [...] Lab Hayder Graham MD CHEMISTRY ORDERABLE S [facility] [place] [address] * (ABNORMAL) Basic Metabolic Panel (non-fasting) (02/21/2024 9:45 AM EDT) Glucose 123 65 - 199 mg/dL [facility] Comment:Diabetes: >=200 mg/d L plus symptoms Blood Urea Nitrogen 22(H) 10 - 20 mg/dL [facility] Creatinine 0.78(L) 0.80 - 1.50 mg/dL [facility] Sodium 140 135 - 145 mmol/L [facility] Potassium 3.9 3.5 - 5.0 mmol/L [facility] Comment: Please note: ??Patients with WBC >100,000 may have falsely elevated Potassium levels. ??For accurate Potassium quantification in these patients send serum separator tube (gold top) for subsequent determinations. ??Contact the Clinical Chemistry Laboratory if there are any questions. Chloride 100 98 - 107 mmol/L [facility] Carbon Dioxide Not Perf 22 - 31 [facility] Comment:Add-on request. Samp le too old to perform test. Anion Gap Unable to Calculate 5 - 15 mmol/L [facility] Calcium 8.6 8.5 - 10.5 mg/dL [facility] Est Glomerular Filtration Rate 100 >=60 mL/min/1 .73 m?? [facility] Comment: This [...] Carpio MD CHEMISTRY ORDERABLES Performing Organization Address City/[facility]/ZIP Co de Phone Number [facility] [place] [address] * Lactate, whole blood, send to lab ([facility]) (02/21/2024 9:45 AM EDT) [facility] Lactate WB 2.0 0.5 - 2.2 mmol/L [facility] Blood 02/21/2024 9:45 AM EDT 02/21/2024 9:52 AM EDT Narrative Resulting Agency Comment Spec In Lab Hayder Graham MD CHEMISTRY ORDERABLE S Performing Organization Address City/[facility]/ZIP Co de Phone Number [facility] [place] [address] * (ABNORMAL) Hepatic Function Panel (02/21/2024 9:45 AM EDT) [facility] Protein, Total 5.7(L) 6.1 - 8.0 g/dL [facility] Albumin 3.3 3.2 - 5.2 g/dL [facility] Aspartate Aminotransferase 13 0 - 39 unit/L [facility] Alanine Aminotransferase 16 0 - 55 unit/L [facility] Alkaline Phosphatase 63 40 - 130 unit/L [facility] Bilirubin, Total 0.6 0.2 - 1.3 mg/dL [facility] Bilirubin, Direct 0.2 0.0 - 0.3 mg/dL [facility] Blood 02/21/2024 9:45 AM EDT 02/21/2024 9:52 AM EDT Narrative Resulting Agency Comment Spec In Lab Hayder Graham MD CHEMISTRY ORDERABLE S Performing Organization Address City/[facility]/ZIP Co de Phone Number [facility] [place] [address] * Lipase (02/21/2024 9:45 AM EDT) Lipase 56 0 - 60 unit/L [facility] Blood 02/21/2024 9:45 AM EDT 02/21/2024 9:52 AM EDT Narrative Resulting Agency Comment Spec In Lab Hayder Graham MD CHEMISTRY ORDERABLE S Performing Organization Address [facility] Co de Phone Number [facility] [place] [address] * Amylase (02/21/2024 9:45 AM EDT) Amylase 69 28 - 100 unit/L [facility] Blood 02/21/2024 9:45 AM EDT 02/21/2024 9:52 AM EDT Narrative Resulting Agency Comment Spec In Lab Hayder Graham MD CHEMISTRY ORDERABLE S Performing Organization Address [facility] Co de Phone Number [facility] [place] [place] [address] * Potassium (02/21/2024 3:08 AM EDT) Potassium 3.8 3.5 - 5.0 mmol/L [facility] Lab Hayder Graham MD CHEMISTRY ORDERABLE S [facility] [place] [address] * XR Chest PA & Lateral (Generic) (02/20/2024 10:19 AM EDT) WORKSTATION ID [id number] RAD Anatomical Region Laterality Modality Chest N/A Digital Radiogra phy Impressions 02/20/2024 1:11 PM EDT Small pleural effusions. No pneumothorax Thank you for letting us participate in the care of this patient. ??If you are a health care provider and have any questions regarding this report, please contact the number below. ??For patients who have questions please contact the health memory care program resident that requested your imaging first. ? Electronically signed by: Rogerio rCuz MD, [facility] ??([phone]), at 02/20/2024 1:11 PM Narrative 02/20/2024 1:11 PM EDT EXAMINATION: XR CHEST PA AND LATERAL (GENERIC) CLINICAL HISTORY: s/p AVR/CABGx3 TECHNIQUE: PA and lateral views of the chest COMPARISON: 02/17/2024 FINDINGS: Support devices: Interval removal of [place]ev[place]-Kaila catheter, endotracheal tube and mediastinal chest tubes The cardiac silhouette is stable status post median sternotomy, CABG and aortic valve replacement. There are small pleural effusions. No pneumothorax. Procedure Note Rogerio Cruz MD - 02/20/2024 EXAMINATION: XR CHEST PA AND LATERAL (GENERIC) CLINICAL HISTORY: s/p AVR/CABGx3 TECHNIQUE: PA and lateral views of the chest COMPARISON: 02/17/2024 FINDINGS: Support devices: Interval removal of [place]-Kaila catheter, endotracheal tubeand mediastinal chest tubes The [...] patients who have questions please contactthe health memory care program resident that requested your imaging first. Hayder Graham MD IMG DX ORDERABLES * Scan, Peripheral Blood (02/20/2024 4:23 AM EDT) Pathologist [facility] Plat estimate Decreased [facility] RBC Morphology Normal [facility] Blood 02/20/2024 4:23 AM EDT 02/20/2024 4:42 AM EDT Narrative Resulting Agency Comment Spec In Lab Minnie FRENCH HEMATOLOGY CECILIO ALEMAN Performing Organization Address City/State/[facility] Co de Phone Number [facility] [place] [address] * (ABNORMAL) Differential, Automated (02/20/2024 4:23 AM EDT) [facility] Neutrophil % 81.7 % [facility] Neutrophil Absolute 10.37(H) 1.70 - 6.10 x10(3)/mc L [facility] Lymph % 7.4 % [facility] Lymphocytes Abs 0.9 0.9 - 3.2 x10(3)/mc L [facility] Monocyte % 9.7 % [facility] Monocyte Abs 1.2(H) 0.3 - 0.9 x10(3)/mc L [facility] Eos % 0.1 % [facility] Eosinophils Abs 0.0 0.0 - 0.4 x10(3)/[facility] Basophil % 0.2 % [facility] Baso Absolute 0.0 0.0 - 0.1 x10(3)/[facility] LABOR[facility] Immature Gran % 0.90 % [facility] Comment: Immature granulocytes(IG's)percentage and absolute count will include metamyelocytes, myelocytes, and promyelocytes. Blood smears from CBCs yielding IG's will be scanned manually for concordance. If this scan disagrees with the automated IG or if promyelocytes are noted, a manual differential will be performed. Immature Gran Absolute 0.12(H) 0.00 - 0.04 x10(3)/[facility] Blood 02/20/2024 4:23 AM EDT 02/20/2024 4:42 AM EDT Narrative Resulting Agency Comment Spec In Lab Minnie FRENCH HEMATOLOGY CECILIO ALEMAN [facility] [place] [address] * (ABNORMAL) Hemogram (02/20/2024 4:23 AM EDT) White Blood Cell 12.7(H) 4.0 - 9.5 x10(3)/[facility] Red Blood Cell 4.26(L) 4.58 - 5.54 x10(6)/[facility] Hemoglobin 12.3(L) 13.7 - 16.5 g/dL [facility] Hematocrit 37.1(L) 40.5 - 48.5 % [facility] Mean Cell Volume 87.1 82.9 - 93.1 fL [facility] Mean Cell Hemoglobin 28.9 27.5 - 32.1 pg [facility] Mean Cell Hemoglobin Concentration 33.2 32.0 - 35.7 g/dL [facility] Platelet 88(L) 145 - 357 x10(3)/mc L [facility] RDW Standard Deviation 43.5 36.0 - 45.0 fL [facility] RDW coefficient of variation 13.7 11.4 - 13.8 % [facility] Mean Platelet Volume 10.2 7.6 - 12.9 fL [facility] NRBC% auto 0.0 % [facility] NRBC Absolute 0.000 0.000 - 0.000 x10(3)/mc L [facility] Blood 02/20/2024 4:23 AM EDT 02/20/2024 4:42 AM EDT Narrative Resulting Agency Comment Spec In Lab Minnie FRENCH HEMATOLOGY CECILIO ALEMAN [facility] [place] [address] * (ABNORMAL) Basic Metabolic Panel (non-fasting) (02/20/2024 4:23 AM EDT) Glucose 113 65 - 199 mg/dL [facility] Comment:Diabetes: >=200 mg/d L plus symptoms Blood Urea Nitrogen 20 10 - 20 mg/dL [facility] Comment:result rechecked-[place] Creatinine 0.71(L) 0.80 - 1.50 mg/dL [facility] Sodium 135 135 - 145 mmol/L [facility] Potassium 3.9 3.5 - 5.0 mmol/L [facility] Comment: Please note: ??Patients with WBC >100,000 may have falsely elevated Potassium levels. ??For accurate Potassium quantification in these patients send serum separator tube (gold top) for subsequent determinations. ??Contact the Clinical Chemistry Laboratory if there are any questions. Chloride 102 98 - 107 mmol/L [facility] Carbon Dioxide 25 22 - 31 mmol/L [facility] Anion Gap 8 5 - 15 mmol/L [facility] Calcium 8.7 8.5 - 10.5 mg/dL [facility] Comment:result rechecked-[place] Est Glomerular Filtration Rate 102 >=60 mL/min/1. 73 m?? [facility] [...] ORDERABLE S Performing Organization Address [facility] Co de Phone Number [facility] [place] [address] * Potassium (02/19/2024 3:57 AM EDT) [facility] Potassium 4.3 3.5 - 5.0 mmol/L [facility] [...] ORDERABLE S Performing Organization Address [facility]/ZIP Co de Phone Number [facility] [place] [address] * POCT Glucose (02/18/2024 8:24 AM EDT) Glucose, POC 157 65 - 199 mg/dL [facility] Comment: Supplemental ranges: <140 mg/dL before meals <180 mg/dL all other times of the day Blood 02/18/2024 8:24 AM EDT 02/18/2024 8:24 AM EDT Hayder Graham MD POINT OF CARE TEST ORDERABLES Performing Organization Address City/[facility]/ZIP Co de Phone Number [facility] [place] [address] * Scan, Peripheral Blood (02/18/2024 1:40 AM EDT) [facility] Plat estimate Decreased [facility] RBC Morphology Normal [facility] Blood 02/18/2024 1:40 AM EDT 02/18/2024 1:56 AM EDT Narrative Resulting Agency Comment Spec In Lab Neftali FRENCH HEMATOLOGY ORDER OLE Performing Organization Address City/[facility]/ZIP Co de Phone Number [facility] [place] [address] * (ABNORMAL) Differential, Automated (02/18/2024 1:40 AM EDT) [facility] Neutrophil % 87.1 % [facility] Neutrophil Absolute 15.03(H) 1.70 - 6.10 x10(3)/mc L [facility] Lymph % 3.0 % [facility] Lymphocytes Abs 0.5(L) 0.9 - 3.2 x10(3)/mc L [facility] Monocyte % 9.1 % [facility] Monocyte Abs 1.6(H) 0.3 - 0.9 x10(3)/mc L [facility] Eos % 0.0 % [facility] Eosinophils Abs 0.0 0.0 - 0.4 x10(3)/mc L [facility] Basophil % 0.2 % [facility] Baso Absolute 0.0 0.0 - 0.1 x10(3)/mc L [facility] Immature Gran % 0.60 % [facility] Comment: Immature granulocytes(IG's)percentage and absolute count will include metamyelocytes, myelocytes, and promyelocytes. Blood smears from CBCs yielding IG's will be scanned manually for concordance. If this scan disagrees with the automated IG or if promyelocytes are noted, a manual differential will be performed. Immature Gran Absolute 0.10(H) 0.00 - 0.04 x10(3)/ L [facility] Blood 02/18/2024 1:40 AM EDT 02/18/2024 1:56 AM EDT Narrative Resulting Agency Comment Spec In Lab Neftali FRENCH HEMATOLOGY ORDER OLE [facility] [place] [address] * (ABNORMAL) Hemogram (02/18/2024 1:40 AM EDT) White Blood Cell 17.2(H) 4.0 - 9.5 x10(3)/ L [facility] Red Blood Cell 4.71 4.58 - 5.54 x10(6)/mc L [facility] Hemoglobin 13.7 13.7 - 16.5 g/dL [facility] Hematocrit 39.2(L) 40.5 - 48.5 % [facility] Mean Cell Volume 83.2 82.9 - 93.1 fL [facility] Mean Cell Hemoglobin 29.1 27.5 - 32.1 pg [facility] Mean Cell Hemoglobin Concentration 34.9 32.0 - 35.7 g/dL [facility] Platelet 147 145 - 357 x10(3)/mc L [facility] RDW Standard Deviation 39.9 36.0 - 45.0 fL [facility] RDW coefficient of variation 13.2 11.4 - 13.8 % [facility] Mean Platelet Volume 9.9 7.6 - 12.9 fL [facility] NRBC% auto 0.0 % [facility] NRBC Absolute 0.000 0.000 - 0.000 x10(3)/mc L [facility] Blood 02/18/2024 1:40 AM EDT 02/18/2024 1:56 AM EDT Narrative Resulting Agency Comment Spec In Lab Neftali FRENCH HEMATOLOGY ORDER OLE [facility] [place] [address] * (ABNORMAL) Basic Metabolic Panel (non-fasting) (02/18/2024 1:40 AM EDT) Glucose 176 65 - 199 mg/dL [facility] Comment:Diabetes: >=200 mg/d L plus symptoms Blood Urea Nitrogen 10 10 - 20 mg/dL [facility] Creatinine 0.65(L) 0.80 - 1.50 mg/dL [facility] Sodium 135 135 - 145 mmol/L [facility] Potassium 4.2 3.5 - 5.0 mmol/L [facility] Comment: Please note: ??Patients with WBC >100,000 may have falsely elevated Potassium levels. ??For accurate Potassium quantification in these patients send serum separator tube (gold top) for subsequent determinations. ??Contact the Clinical Chemistry Laboratory if there are any questions. Chloride 106 98 - 107 mmol/L [facility] Carbon Dioxide 20(L) 22 - 31 mmol/L [facility] Anion Gap 9 5 - 15 mmol/L [facility] Calcium 7.6(L) 8.5 - 10.5 mg/dL [facility] Est Glomerular Filtration Rate 105 >=60 mL/min/1. 73 m?? [facility] [...] Lab Hayder Graham MD CHEMISTRY ORDERABLE S [facility] [place] [address] * (ABNORMAL) Troponin (02/18/2024 1:40 AM EDT) Troponin-T, High Sensitivity 342(H) <=22 ng/L [facility] Comment: This patient's troponin [...] value can be found in the [facility] Laboratory Test Catalog Troponin - [facility] Laboratory Test Catalog Reference: Fourth [place] Definition of Myocardial Infarction. Journal of the [place] [employer] 2018;72:1024-9219 Blood 02/18/2024 1:40 AM EDT 02/18/2024 1:56 AM EDT Narrative Resulting Agency Comment Spec In Lab Hayder Graham MD CHEMISTRY ORDERABLE S [facility] [place] [address] * POCT Glucose (02/17/2024 8:13 PM EDT) Glucose, POC 142 65 - 199 mg/dL [facility] Comment: Supplemental ranges: <140 mg/dL before meals <180 mg/dL all other times of the day Blood 02/17/2024 8:13 PM EDT 02/17/2024 8:13 PM EDT Hayder Graham MD POINT OF CARE TEST ORDERABLES Performing Organization Address [facility]/ZIP Co de Phone Number [facility] [place] [address] * POCT Glucose (02/17/2024 5:42 PM EDT) Glucose, POC 160 65 - 199 mg/dL [facility] Comment: Supplemental ranges: <140 mg/dL before meals <180 mg/dL all other times of the day Blood 02/17/2024 5:42 PM EDT 02/17/2024 5:42 PM EDT Hayder Graham MD POINT OF CARE TEST ORDERABLES Performing Organization Address City/[facility]/ZIP Co de Phone Number [facility] [place] [address] * Hemoglobin (02/17/2024 5:42 PM EDT) Hemoglobin 13.7 13.7 - 16.5 g/dL [facility] Blood 02/17/2024 5:42 PM EDT 02/17/2024 6:10 PM EDT Narrative Resulting Agency Comment Spec In Lab Hadyer Graham MD HEMATOLOGY ORDERABL ES Performing Organization Address [facility] Co de Phone Number [facility] [place] [address] * Potassium (02/17/2024 5:42 PM EDT) Potassium 4.3 3.5 - 5.0 mmol/L [facility] [...] ORDERABLE S Performing Organization Address [facility] de Phone Number [facility] [place] [address] * (ABNORMAL) BLOOD GAS 2 ARTERIAL (02/17/2024 4:18 PM EDT) pH, Arterial 7.34(L) 7.35 - 7.45 [facility] PCO2, Arterial 40 35 - 45 mmHg [facility] PO2, Arterial 78(L) 85 - 104 mmHg [facility] Bicarbonate, Arterial 20.8 20.0 - 26.0 mmol/L [facility] Base Excess, Arterial -5.1(L) -3.0 - 3.0 mmol/L [facility] Hgb Blood Gas 14.6 13.7 - 16.5 g/dL [facility] Oxyhemoglobin, Arterial 93.0(L) 94.0 - 97.0 % [facility] Carboxyhemoglob in, Arterial 0.3 % [facility] Comment: Nonsmokers: 0.5-1.5% COHB Smokers: Variable, but usually less than 10% Toxic: 20-30% COHB Lethal: Greater than 60% COHB Methemoglobin, Arterial 0.8 <=1.5 % [facility] Na Whole Blood 136 135 - 145 mmol/L [facility] K Whole Blood 4.1 3.5 - 5.0 mmol/L [facility] Comment: Please note: Patients with WBC >100,000 may have falsely elevated Potassium levels. Contact the Clinical Chemistry Laboratory if there are any questions. ICa Whole Blood 1.10(L) 1.15 - 1.33 mmol/L [facility] Comment: Note: ??Total bilirubin higher than 20 mg/dL may lead to falsely low ionized calcium. CL Whole Blood 105 98 - 107 mmol/L [facility] Gluc Whole Bld 159 65 - 199 mg/dL [facility] Comment:Diabetes: >=200 mg/d L plus symptoms. Lactate WB 1.2 0.5 - 2.2 mmol/L [facility] FIO2 Art 40 % [facility] PF Ratio Art 195 [facility] Blood 02/17/2024 4:18 PM EDT 02/17/2024 4:18 PM EDT Hayder Graham MD POINT OF CARE TEST ORDERABLES Performing Organization Address City/State/[facility] Co de Phone Number [facility] [place] [address] * XR Chest One View (02/17/2024 1:44 PM EDT) WORKSTATION ID [id number] RAD Anatomical Region Laterality Modality Chest N/A Digital Radiogra phy Impressions 02/17/2024 2:12 PM EDT 1. ??No definite pleural fluid collection or pneumothorax. 2. ??Right IJ Hotevilla-Kaila catheter tip terminates in a descending branch of the right pulmonary artery. Suggest catheter retraction. 3. ??Additional support lines and tubes as above. Thank you for letting us participate in the care of this patient. ??If you are a health care provider and have any questions regarding this report, please contact the number below. ??For patients who have questions please contact the health memory care program resident that requested your imaging first. ? Electronically signed by: Denzel Hankins MD, [facility] ??([phone]), at 02/17/2024 2:12 PM Narrative 02/17/2024 2:12 PM EDT EXAMINATION: XR CHEST ONE VIEW CLINICAL HISTORY: s/p avr/cabg eval effusions TECHNIQUE: 1 view of the chest COMPARISON: Chest x-ray 01/09/2024, chest CT 02/03/2024 FINDINGS: ET tube tip terminates 5.2 cm above the carlos. Right IJ Hotevilla-Kaila catheter tip terminates in a descending branch [...] 5.2 cm above the carlos. Right IJ Hotevilla-Ganzcatheter tip terminates in a descending branch of [...] fluid collection or pneumothorax. 2. Right IJ [place]-Kaila catheter tip terminates in a descending branch ofthe right pulmonary artery. Suggest catheter retraction. 3. Additional support lines and tubes as above. Thank you for letting us participate in the care of this patient. If youare a health care provider and have any questions regarding this report,please contact the number below. For patients who have questions please contactthe health memory care program resident that requested your imaging first. Hayder Graham MD IMG DX ORDERABLES * (ABNORMAL) BLOOD GAS 2 ARTERIAL (02/17/2024 1:31 PM EDT) pH, Arterial 7.35 7.35 - 7.45 [facility] PCO2, Arterial 39 35 - 45 mmHg [facility] PO2, Arterial 320(H) 85 - 104 mmHg [facility] Bicarbonate, Arterial 21.4 20.0 - 26.0 mmol/L [facility] Base Excess, Arterial -4.2(L) -3.0 - 3.0 mmol/L [facility] Hgb Blood Gas 14.1 13.7 - 16.5 g/dL [facility] Oxyhemoglobin, Arterial 97.9(H) 94.0 - 97.0 % [facility] Carboxyhemoglob in, Arterial 0.3 % [facility] Comment: Nonsmokers: 0.5-1.5% COHB Smokers: Variable, but usually less than 10% Toxic: 20-30% COHB Lethal: Greater than 60% COHB Methemoglobin, Arterial 0.7 <=1.5 % [facility] Na Whole Blood 137 135 - 145 mmol/L [facility] K Whole Blood 4.2 3.5 - 5.0 mmol/L [facility] Comment: Please note: Patients with WBC >100,000 may have falsely elevated Potassium levels. Contact the Clinical Chemistry Laboratory if there are any questions. ICa Whole Blood 1.13(L) 1.15 - 1.33 mmol/L [facility] Comment: Note: ??Total bilirubin higher than 20 mg/dL may lead to falsely low ionized calcium. CL Whole Blood 108(H) 98 - 107 mmol/L [facility] Gluc Whole Bld 136 65 - 199 mg/dL [facility] Comment:Diabetes: >=200 mg/d L plus symptoms. Lactate WB 1.1 0.5 - 2.2 mmol/L [facility] FIO2 Art 100 % [facility] PF Ratio Art 320 [facility] Blood 02/17/2024 1:31 PM EDT 02/17/2024 1:31 PM EDT Hayder Graham MD POINT OF CARE TEST ORDERABLES Performing Organization Address City/State/[facility] Co de Phone Number [facility] [place] [address] * (ABNORMAL) Coox2 (02/17/2024 1:21 PM EDT) pO2, Coox 44 mmHg [facility] Hgb Blood Gas 13.1(L) 13.7 - 16.5 g/dL [facility] Oxyhemoglobin, Coox 76.4 % [facility] Carboxyhemoglo bin, Coox 0.3 % [facility] Comment: Nonsmokers: 0.5-1.5% COHB Smokers: Variable, but usually less than 10% Toxic: 20-30% COHB Lethal: Greater than 60% COHB Methemoglobin, Coox 0.8 <=1.5 % [facility] Source Coox Mixed Venous [facility] Blood 02/17/2024 1:21 PM EDT 02/17/2024 1:21 PM EDT Hayder Graham MD POINT OF CARE TEST ORDERABLES [facility] [place] [address] * (ABNORMAL) BLOOD GAS 2 ARTERIAL (02/17/2024 12:14 PM EDT) pH, Arterial 7.39 7.35 - 7.45 [facility] PCO2, Arterial 40 35 - 45 mmHg [facility] PO2, Arterial 338(H) 85 - 104 mmHg [facility] Bicarbonate, Arterial 23.7 20.0 - 26.0 mmol/L [facility] Base Excess, Arterial -1.3 -3.0 - 3.0 mmol/L [facility] Hgb Blood Gas 11.0(L) 13.7 - 16.5 g/dL [facility] Oxyhemoglobin, Arterial 98.8(H) 94.0 - 97.0 % [facility] Carboxyhemoglob in, Arterial 0.3 % [facility] Comment: Nonsmokers: 0.5-1.5% COHB Smokers: Variable, but usually less than 10% Toxic: 20-30% COHB Lethal: Greater than 60% COHB Methemoglobin, Arterial 0.3 <=1.5 % [facility] Na Whole Blood 135 135 - 145 mmol/L [facility] K Whole Blood 5.1(H) 3.5 - 5.0 mmol/L [facility] Comment: Please note: Patients with WBC >100,000 may have falsely elevated Potassium levels. Contact the Clinical Chemistry Laboratory if there are any questions. ICa Whole Blood 1.13(L) 1.15 - 1.33 mmol/L [facility] Comment: Note: ??Total bilirubin higher than 20 mg/dL may lead to falsely low ionized calcium. CL Whole Blood 106 98 - 107 mmol/L [facility] Gluc Whole Bld 132 65 - 199 mg/dL [facility] Comment:Diabetes: >=200 mg/d L plus symptoms. Lactate WB 1.4 0.5 - 2.2 mmol/L [facility] Blood 02/17/2024 12:1 4 PM EDT 02/17/2024 12:14 PM EDT Hayder Graham MD POINT OF CARE TEST ORDERABLES Performing Organization Address [facility] de Phone Number [facility] [place] [address] * (ABNORMAL) Fibrinogen (02/17/2024 12:10 PM EDT) Fibrinogen 154(L) 200 - 393 mg/dL [facility] Comment: OR Result called [...] ORDERABLE S Performing Organization Address [facility] Co de Phone Number [facility] [place] [address] * (ABNORMAL) Thrombin time (02/17/2024 12:10 PM EDT) Thrombin Time 18(H) 10 - 17 sec [facility] Comment: OR Result called [...] ORDERABLE S Performing Organization Address [facility] de Phone Number [facility] [place] [address] * APTT (02/17/2024 12:10 PM EDT) Partial Thromboplastin Time 33 25 - 37 sec [facility] Comment: OR Result called [...] ORDERABLE S Performing Organization Address [facility] de Phone Number [facility] [place] [address] * (ABNORMAL) Prothrombin Time (02/17/2024 12:10 PM EDT) Prothrombin Time 16.7(H) 9.4 - 12.5 sec [facility] Comment: OR Result called by ?? LOMARL OR Results read back by: ? alondra pagan at 2024-02-17 12:41:48 International Normalization Ratio 1.5 [facility] Comment: OR Result called [...] Lab Tara York MD HEMATOLOGY ORDERABLE S [facility] [place] [address] * (ABNORMAL) Hemogram (02/17/2024 12:10 PM EDT) White Blood Cell 11.1(H) 4.0 - 9.5 x10(3)/mc L [facility] Red Blood Cell 3.50(L) 4.58 - 5.54 x10(6)/mc L [facility] [facility] Hemoglobin 10.4(L) 13.7 - 16.5 g/dL [facility] Hematocrit 30.2(L) 40.5 - 48.5 % [facility] Comment: This result has been called to ALONDRA PAGAN by Eddie López on 02 17 2024 at 1226, and has been read back. Mean Cell Volume 86.3 82.9 - 93.1 fL [facility] Mean Cell Hemoglobin 29.7 27.5 - 32.1 pg [facility] Mean Cell Hemoglobin Concentration 34.4 32.0 - 35.7 g/dL [facility] Platelet 118(L) 145 - 357 x10(3)/mc L [facility] RDW Standard Deviation 40.2 36.0 - 45.0 fL [facility] RDW coefficient of variation 12.8 11.4 - 13.8 % [facility] Mean Platelet Volume 9.5 7.6 - 12.9 fL [facility] NRBC% auto 0.0 % [facility] NRBC Absolute 0.000 0.000 - 0.000 x10(3)/mc L [facility] Blood 02/17/2024 12:1 0 PM EDT 02/17/2024 12:19 PM EDT Narrative Resulting Agency Comment Spec In Lab Tara York MD HEMATOLOGY ORDERABLE S [facility] [address] [place] [address] * (ABNORMAL) BLOOD GAS 2 ARTERIAL (02/17/2024 11:43 AM EDT) pH, Arterial 7.38 7.35 - 7.45 [facility] PCO2, Arterial 40 35 - 45 mmHg [facility] PO2, Arterial 304(H) 85 - 104 mmHg [facility] Bicarbonate, Arterial 23.2 20.0 - 26.0 mmol/L [facility] Base Excess, Arterial -1.9 -3.0 - 3.0 mmol/L [facility] Hgb Blood Gas 11.1(L) 13.7 - 16.5 g/dL [facility] Oxyhemoglobin, Arterial 98.6(H) 94.0 - 97.0 % [facility] Carboxyhemoglob in, Arterial 0.3 % [facility] Comment: Nonsmokers: 0.5-1.5% COHB Smokers: Variable, but usually less than 10% Toxic: 20-30% COHB Lethal: Greater than 60% COHB Methemoglobin, Arterial 0.3 <=1.5 % [facility] Na Whole Blood 133(L) 135 - 145 mmol/L [facility] K Whole Blood 6.2(Critic al) 3.5 - 5.0 mmol/L [facility] Comment: Noted by instrument and control service person. Please note: Patients with WBC >100,000 may have falsely elevated Potassium levels. Contact the Clinical Chemistry Laboratory if there are any questions. ICa Whole Blood 0.97(L) 1.15 - 1.33 mmol/L [facility] Comment: Note: ??Total bilirubin higher than 20 mg/dL may lead to falsely low ionized calcium. CL Whole Blood 104 98 - 107 mmol/L [facility] Gluc Whole Bld 128 65 - 199 mg/dL [facility] Comment:Diabetes: >=200 mg/d L plus symptoms. Lactate WB 1.1 0.5 - 2.2 mmol/L [facility] Blood 02/17/2024 11:4 3 AM EDT 02/17/2024 11:43 AM EDT Hayder Graham MD POINT OF CARE TEST ORDERABLES [facility] [place] [address] * (ABNORMAL) BLOOD GAS 2 ARTERIAL (02/17/2024 11:08 AM EDT) pH, Arterial 7.38 7.35 - 7.45 [facility] PCO2, Arterial 38 35 - 45 mmHg [facility] PO2, Arterial 334(H) 85 - 104 mmHg [facility] Bicarbonate, Arterial 22.0 20.0 - 26.0 mmol/L [facility] Base Excess, Arterial -3.2(L) -3.0 - 3.0 mmol/L [facility] Hgb Blood Gas 10.8(L) 13.7 - 16.5 g/dL [facility] Oxyhemoglobin, Arterial 98.7(H) 94.0 - 97.0 % [facility] Carboxyhemoglob in, Arterial 0.3 % [facility] Comment: Nonsmokers: 0.5-1.5% COHB Smokers: Variable, but usually less than 10% Toxic: 20-30% COHB Lethal: Greater than 60% COHB Methemoglobin, Arterial 0.3 <=1.5 % [facility] Na Whole Blood 131(L) 135 - 145 mmol/L [facility] K Whole Blood 6.4(Critic al) 3.5 - 5.0 mmol/L [facility] Comment: Noted by instrument and control service person. Please note: Patients with WBC >100,000 may have falsely elevated Potassium levels. Contact the Clinical Chemistry Laboratory if there are any questions. ICa Whole Blood 0.98(L) 1.15 - 1.33 mmol/L [facility] Comment: Note: ??Total bilirubin higher than 20 mg/dL may lead to falsely low ionized calcium. CL Whole Blood 104 98 - 107 mmol/L [facility] Gluc Whole Bld 127 65 - 199 mg/dL [facility] Comment:Diabetes: >=200 mg/d L plus symptoms. Lactate WB 1.0 0.5 - 2.2 mmol/L [facility] Blood 02/17/2024 11:0 8 AM EDT 02/17/2024 11:08 AM EDT Hayder Graham MD POINT OF CARE TEST ORDERABLES Performing Organization Address City/[facility]/[place] [address] * (ABNORMAL) Hemoglobin and Hematocrit, blood (02/17/2024 11:04 AM EDT) Hemoglobin 9.6(L) 13.7 - 16.5 g/dL [facility] Hematocrit 28.0(L) 40.5 - 48.5 % [facility] Comment: This result has been called to ALONDRA PAGAN by Eddie López on 02 17 2024 at 1120, and has been read back. Blood 02/17/2024 11:0 4 AM EDT 02/17/2024 11:12 AM EDT Narrative Resulting Agency Comment Spec In Lab Hayder Graham MD HEMATOLOGY ORDERABL ES [facility] [place] [address] * (ABNORMAL) Platelet count (02/17/2024 11:04 AM EDT) Platelet 106(L) 145 - 357 x10(3)/mc L [facility] Immature Plt % 1.6 0.0 - 7.4 % [facility] Comment: Limitation of the Immature Platelet Fraction (IPF)-May be less reliable when the platelet count is less than 06c296/uL due to statistical imprecision. The IPF value [...] in a decreased state of production. References: [employer] The Clinical Value of the Immature Platelet Fraction (IPF) in Cell Recovery Document Number [id number] 03/2011 [employer] The Role of the Immature Platelet Fraction (IPF) in the Differential Diagnosis of Thrombocytopenia, Document [id number] V002/15/14 P014 Blood 02/17/2024 11:0 4 AM EDT 02/17/2024 11:12 AM EDT Narrative Resulting Agency Comment Spec In Lab Hayder Graham MD HEMATOLOGY ORDERABL ES [facility] [place] [address] * (ABNORMAL) Fibrinogen (02/17/2024 11:04 AM EDT) Pathologist [facility] [place] Fibrinogen 149(L) 200 - 393 mg/dL [facility] Comment: OR Result called by ?? SALVLT OR Results read back by: ? Alondra Pagan at 2024-02-17 11:30:47 A fibrinogen level >100 mg/dL is adequate for hemostasis in most patients without underlying bleeding disorders. Blood 02/17/2024 11:0 4 AM EDT 02/17/2024 11:12 AM EDT Narrative Resulting Agency Comment Spec In Lab Hayder Graham MD HEMATOLOGY ORDERABL ES [facility] [place] [address] * (ABNORMAL) BLOOD GAS 2 ARTERIAL (02/17/2024 10:41 AM EDT) pH, Arterial 7.37 7.35 - 7.45 [facility] PCO2, Arterial 44 35 - 45 mmHg [facility] PO2, Arterial 335(H) 85 - 104 mmHg [facility] Bicarbonate, Arterial 24.9 20.0 - 26.0 mmol/L [facility] Base Excess, Arterial -0.4 -3.0 - 3.0 mmol/L [facility] Hgb Blood Gas 11.5(L) 13.7 - 16.5 g/dL [facility] Oxyhemoglobin, Arterial 98.9(H) 94.0 - 97.0 % [facility] Carboxyhemoglob in, Arterial 0.1 % [facility] Comment: Nonsmokers: 0.5-1.5% COHB Smokers: Variable, but usually less than 10% Toxic: 20-30% COHB Lethal: Greater than 60% COHB Methemoglobin, Arterial 0.3 <=1.5 % [facility] Na Whole Blood 132(L) 135 - 145 mmol/L [facility] K Whole Blood 5.9(H) 3.5 - 5.0 mmol/L [facility] Comment: Please note: Patients with WBC >100,000 may have falsely elevated Potassium levels. Contact the Clinical Chemistry Laboratory if there are any questions. ICa Whole Blood 1.02(L) 1.15 - 1.33 mmol/L [facility] Comment: Note: ??Total bilirubin higher than 20 mg/dL may lead to falsely low ionized calcium. CL Whole Blood 104 98 - 107 mmol/L [facility] Gluc Whole Bld 129 65 - 199 mg/dL [facility] Comment:Diabetes: >=200 mg/d L plus symptoms. Lactate WB 1.1 0.5 - 2.2 mmol/L [facility] Blood 02/17/2024 10:4 1 AM EDT 02/17/2024 10:41 AM EDT Hayder Graham MD POINT OF CARE TEST ORDERABLES Performing Organization Address City/State/[facility] Co de Phone Number [facility] [place] [address] * (ABNORMAL) BLOOD GAS 2 ARTERIAL (02/17/2024 10:06 AM EDT) pH, Arterial 7.38 7.35 - 7.45 [facility] PCO2, Arterial 42 35 - 45 mmHg [facility] PO2, Arterial 329(H) 85 - 104 mmHg [facility] Bicarbonate, Arterial 24.7 20.0 - 26.0 mmol/L [facility] Base Excess, Arterial -0.3 -3.0 - 3.0 mmol/L [facility] Hgb Blood Gas 11.0(L) 13.7 - 16.5 g/dL [facility] Oxyhemoglobin, Arterial 99.0(H) 94.0 - 97.0 % [facility] Carboxyhemoglob in, Arterial 0.3 % [facility] Comment: Nonsmokers: 0.5-1.5% COHB Smokers: Variable, but usually less than 10% Toxic: 20-30% COHB Lethal: Greater than 60% COHB Methemoglobin, Arterial 0.3 <=1.5 % [facility] Na Whole Blood 132(L) 135 - 145 mmol/L [facility] K Whole Blood 6.0(H) 3.5 - 5.0 mmol/L [facility] Comment: Please note: Patients with WBC >100,000 may have falsely elevated Potassium levels. Contact the Clinical Chemistry Laboratory if there are any questions. ICa Whole Blood 0.97(L) 1.15 - 1.33 mmol/L [facility] Comment: Note: ??Total bilirubin higher than 20 mg/dL may lead to falsely low ionized calcium. CL Whole Blood 102 98 - 107 mmol/L [facility] Gluc Whole Bld 123 65 - 199 mg/dL [facility] Comment:Diabetes: >=200 mg/d L plus symptoms. Lactate WB 1.1 0.5 - 2.2 mmol/L [facility] Blood 02/17/2024 10:0 6 AM EDT 02/17/2024 10:06 AM EDT Hayder Graham MD POINT OF CARE TEST ORDERABLES Performing Organization Address City/State/[facility] Co de Phone Number [facility] [place] [address] * Surgical Pathology Report (02/17/2024 10:01 AM EDT) Final Diagnosis [id number] ? Location: [facility]; [facility] [place]; The signing pathologist has (i) examined the relevant preparation(s) for the specimen(s) and (ii) rendered or confirmed the diagnosis(es). . ?Surgical Pathology DIAGNOSIS Aortic valve leaflets, excision: Valve leaflets with myxoid degeneration, nodular fibrosis and dystrophic calcifications. Electronically signed by: ?Livier Montoya MD Verified: ??02/24/2024 13:49 ??Pathologist Performed at: ??-[facility] [place] Dept. of [place]ology, [place] [address] Cyber Security: Job Brewer MD, FCAP, ??CLIA Certificate: [id number] SPECIMEN(S) SUBMITTED A - Aortic Valve Leaflets, [...] Sections Processing Blocks submitted for decalcification: A1. Cloth Mercerizer Operator sections in 1 cassette labeled A1. ??ajw 02/24/2024 1:49 PM EDT [facility] AORTIC STRUCTURE / Unknown 02/17/2024 10:01 AM EDT 02/17/2024 10:01 AM EDT Hayder Graham MD PATHOLOGY/CYTOLOGY ORDERABLES Performing Organization Address City/[facility]/ZIP Co de Phone Number [facility] [place] [address] * Specimen to Pathology (02/17/2024 10:01 AM EDT) AP Specimen 02/17/2024 10:0 1 AM EDT 02/17/2024 10:01 AM EDT Narrative [facility] - 02/17/2024 10:01 AM EDT Specimen requisition ordered. ??Separate Pathology report to follow Hayder Graham MD PATHOLOGY/CYTOLOGY ORDERABLES Performing Organization Address [facility]/ZIP Co de Phone Number [facility] [place] [address] * (ABNORMAL) BLOOD GAS 2 ARTERIAL (02/17/2024 9:35 AM EDT) pH, Arterial 7.33(L) 7.35 - 7.45 [facility] PCO2, Arterial 35 35 - 45 mmHg [facility] PO2, Arterial 318(H) 85 - 104 mmHg [facility] Bicarbonate, Arterial 17.9(L) 20.0 - 26.0 mmol/L [facility] Base Excess, Arterial -8.0(L) -3.0 - 3.0 mmol/L [facility] Hgb Blood Gas 11.0(L) 13.7 - 16.5 g/dL [facility] Oxyhemoglobin, Arterial 98.8(H) 94.0 - 97.0 % [facility] Carboxyhemoglob in, Arterial 0.3 % [facility] Comment: Nonsmokers: 0.5-1.5% COHB Smokers: Variable, but usually less than 10% Toxic: 20-30% COHB Lethal: Greater than 60% COHB Methemoglobin, Arterial 0.3 <=1.5 % [facility] Na Whole Blood 131(L) 135 - 145 mmol/L [facility] K Whole Blood 5.8(H) 3.5 - 5.0 mmol/L [facility] Comment: Please note: Patients with WBC >100,000 may have falsely elevated Potassium levels. Contact the Clinical Chemistry Laboratory if there are any questions. ICa Whole Blood 0.98(L) 1.15 - 1.33 mmol/L [facility] Comment: Note: ??Total bilirubin higher than 20 mg/dL may lead to falsely low ionized calcium. CL Whole Blood 101 98 - 107 mmol/L [facility] Gluc Whole Bld 122 65 - 199 mg/dL [facility] Comment:Diabetes: >=200 mg/d L plus symptoms. Lactate WB 0.8 0.5 - 2.2 mmol/L [facility] Blood 02/17/2024 9:35 AM EDT 02/17/2024 9:35 AM EDT Hayder Graham MD POINT OF CARE TEST ORDERABLES [facility] [place] [address] * (ABNORMAL) BLOOD GAS 2 VENOUS (02/17/2024 9:34 AM EDT) pH, Venous 7.22(Criti marquez) 7.32 - 7.42 [facility] Comment:Noted by instrument and control service person. PCO2, Venous 43 41 - 51 mmHg [facility] Comment:Noted by instrument and control service person. PO2, Venous 57(H) 25 - 40 mmHg [facility] Comment:Noted by instrument and control service person. Bicarbonate, Venous 17.1 mmol/L [facility] Comment:Noted by instrument and control service person. Base Excess, Venous -10.6 mmol/L [facility] Comment:Noted by instrument and control service person. Hgb Blood Gas 11.2(L) 13.7 - 16.5 g/dL [facility] Comment:Noted by instrument and control service person. Oxyhemoglobin, Venous 86.5 % [facility] Comment:Noted by instrument and control service person. Carboxyhemoglob in, Venous 0.3 % [facility] Comment: Noted by instrument and control service person. Nonsmokers: 0.5-1.5% COHB Smokers: Variable, but usually less than 10% Toxic: 20-30% COHB Lethal: Greater than 60% COHB Methemoglobin, Venous 0.0 <=1.5 % [facility] Comment:Noted by instrument and control service person. Na Whole Blood 156(H) 135 - 145 mmol/L [facility] Comment:Noted by instrument and control service person. K Whole Blood 5.5(H) 3.5 - 5.0 mmol/L [facility] Comment: Noted by instrument and control service person. Please note: Patients with WBC >100,000 may have falsely elevated Potassium levels. Contact the Clinical Chemistry Laboratory if there are any questions. ICa Whole Blood 1.03(L) 1.15 - 1.33 mmol/L [facility] Comment: Noted by instrument and control service person. Note: ??Total bilirubin higher than 20 mg/dL may lead to falsely low ionized calcium. CL Whole Blood 100 98 - 107 mmol/L [facility] Comment:Noted by instrument and control service person. Gluc Whole Bld 132 65 - 199 mg/dL [facility] Comment: Noted by instrument and control service person. Diabetes: >=200 mg/dL plus symptoms Lactate WB 1.0 0.5 - 2.2 mmol/L [facility] Comment:Noted by instrument and control service person. Blood Gas Source Venous [facility] Blood 02/17/2024 9:34 AM EDT 02/17/2024 9:34 AM EDT Hayder Graham MD POINT OF CARE TEST ORDERABLES [facility] [place] [address] * (ABNORMAL) BLOOD GAS 2 ARTERIAL (02/17/2024 8:07 AM EDT) pH, Arterial 7.43 7.35 - 7.45 [facility] PCO2, Arterial 34(L) 35 - 45 mmHg [facility] PO2, Arterial 581(H) 85 - 104 mmHg [facility] Bicarbonate, Arterial 21.7 20.0 - 26.0 mmol/L [facility] Base Excess, Arterial -2.6 -3.0 - 3.0 mmol/L [facility] Hgb Blood Gas 14.5 13.7 - 16.5 g/dL [facility] Oxyhemoglobin, Arterial 99.0(H) 94.0 - 97.0 % [facility] Carboxyhemoglob in, Arterial 0.4 % [facility] Comment: Nonsmokers: 0.5-1.5% COHB Smokers: Variable, but usually less than 10% Toxic: 20-30% COHB Lethal: Greater than 60% COHB Methemoglobin, Arterial 0.3 <=1.5 % [facility] Na Whole Blood 139 135 - 145 mmol/L [facility] K Whole Blood 4.0 3.5 - 5.0 mmol/L [facility] Comment: Please note: Patients with WBC >100,000 may have falsely elevated Potassium levels. Contact the Clinical Chemistry Laboratory if there are any questions. ICa Whole Blood 1.09(L) 1.15 - 1.33 mmol/L [facility] Comment: Note: ??Total bilirubin higher than 20 mg/dL may lead to falsely low ionized calcium. CL Whole Blood 106 98 - 107 mmol/L [facility] Gluc Whole Bld 100 65 - 199 mg/dL [facility] Comment:Diabetes: >=200 mg/d L plus symptoms. Lactate WB 1.3 0.5 - 2.2 mmol/L [facility] Blood 02/17/2024 8:07 AM EDT 02/17/2024 8:07 AM EDT Hayder Graham MD POINT OF CARE TEST ORDERABLES Performing Organization Address [facility] Co de Phone Number [facility] [place] [address] * POCT Glucose (02/17/2024 6:38 AM EDT) Glucose, POC 98 65 - 199 mg/dL [facility] Comment: Supplemental ranges: <140 mg/dL before meals <180 mg/dL all other times of the day Blood 02/17/2024 6:38 AM EDT 02/17/2024 6:38 AM EDT Hayder Graham MD POINT OF CARE TEST ORDERABLES Performing Organization Address [facility] Co de Phone Number [facility] [place] [address] * Transesophageal Echo/OR (02/17/2024 6:33 AM EDT) [...] [facility] and post-operative evaluation of cardiac function [...] 6 hours upon arrival to Unit. Give [place] if unable to take PO, Routine Given [...] dose on Sat02/17/24 at 1400, Until Discontinued, [place] teeth and / or gums. Scan the CHG vial in the [employer] Q-Care Oral Care Kit from floor stock. Ventilator-associated pneumonia prophylaxis For use in ICU/Critical care locations ONLY. Obtain kit from Floor Stock location. Scan CHG vial in the [employer] [facility] Q-Care Oral Care Kit, Routine Given 02/17/2024 [...] restart at 50% of previous rate. Call supervisor melt house if goal not achieved at maximum rate. [...] PHENYLephrine and/or vasopressin ineffective. Call pager # [phone] if initiated. Titrate to keep systolic blood [...] 2.0 L/min/M2. Maximum volume 2 L. Call supervisor melt house for additional fluid orders: pager #[phone]. Rate/Dose Verify 02/18/2024 8:00 AM EDT 1 mL/hr 1 mL/hr Rate/Dose Verify 02/18/2024 6:00 AM EDT 1 mL/hr 1 mL/hr Rate/Dose Verify 02/18/2024 4:00 AM EDT 1 mL/hr 1 mL/hr sodium chloride 0.9% infusion 10-30 mL/hr, Intravenous, DAILY PRN, Starting on Sat02/17/24 at 1307, Until Sat02/18/24 at 0835, Side port TKO rate, per [facility] nursing protocol. Rate/Dose Verify 02/17/2024 8:00 PM EDT 30 mL/hr 30 mL/hr Rate/Dose Verify 02/17/2024 6:00 PM EDT 30 mL/hr 30 mL/h r Rate/Dose Verify 02/17/2024 5:00 PM EDT 30 mL/hr 30 mL/h r sodium chloride 0.9% infusion 10-30 mL/hr, Intravenous, DAILY PRN, Starting on Sat02/17/24 at 1307, Until Sat02/18/24 at 0835, Side port TKO rate, per [facility] nrusing protocol. Rate/Dose Verify 02/18/2024 [...] Routine documented in this encounter Care Teams Ferry Captain Relationship Specialty Start Date End Date Aparna Jordan APRN PCP - General Family Medicine 10/21/23 05/26/24 documented as of this encounter
--- OUTSIDE RECORDS SUMMARY | 2024-06-26 08:29 | XMS_ITS | Encounter Summary ---
Author Organization [facility] [place] [address] Care Team Providers Care Salesperson Hearing Aids Name Role Phone Vanessa Christian MAURI Primary Care Provider [phone] Encounter Details Date Type Department Care Team (Latest Contact Info) Description 01/09/2024 3:00 PM EDT [place] [phone] Nonrheumatic aortic valve stenosis Social History Tobacco Use Types Packs/Day Years Used Date Smoking Tobacco: Former Cigarettes Smokeless Tobacco: Never Comments:Quit 15 + years ago Alcohol Use Standard Drinks/Week Comments Yes 0 (1 standard drink = 0.6 oz pur e alcohol) rare [facility] Inpatient Questions Answer Date Recorded Prevent Contact [...] PM EST Office Visit Cardiology at [address] [phone] Neftali Ernandez MD [facility] [place] [address] documented as of this encounter Procedures Procedure Name Priority Date/Time Associated Diagnosis Comments ABORH RECHECK STATUS Routine 01/09/2024 2:58 PM EDT HEMOGRAM Routine 01/09/2024 2:58 PM EDT Nonrheumatic aortic valve stenosis DIFFERENTIAL, AUTOMATED Routine 01/09/2024 2:58 PM EDT Nonrheumatic aortic valve stenosis TYPE AND SCREEN, SDP (FUTURE SURGERY, [facility] [place] [facility] ONLY) Routine 01/09/2024 2:58 [...] LAB CECILIO ALEMAN [facility] [place] [address] * Differential, Automated (01/09/2024 2:58 PM EDT) Neutrophil % 70.5 % [facility] Neutrophil Absolute 4.34 1.70 - 6.10 x10(3)/[facility] Lymph % 18.9 % [facility] Lymphocytes Abs 1.2 0.9 - 3.2 x10(3)/[facility] Monocyte % 8.0 % [facility] Monocyte Abs 0.5 0.3 - 0.9 x10(3)/[facility] Eos % 1.6 % [facility] Eosinophils Abs 0.1 0.0 - 0.4 x10(3)/[facility] Basophil % 0.5 % [facility] Baso Absolute 0.0 0.0 - 0.1 x10(3)/[facility] Immature Gran % 0.50 % [facility] Comment: Immature granulocytes(IG's)percentage and absolute count will include metamyelocytes, myelocytes, and promyelocytes. Blood smears from CBCs yielding IG's will be scanned manually for concordance. If this scan disagrees with the automated IG or if promyelocytes are noted, a manual differential will be performed. Immature Gran Absolute 0.03 0.00 - 0.04 x10(3)/[facility] Blood 01/09/2024 2:58 PM EDT 01/09/2024 3:03 PM EDT Narrative Resulting Agency Comment Spec In Lab Zak Farmer MD HEMATOLOGY ORDERABL ES [facility] [place] [address] * Hemogram (01/09/2024 2:58 PM EDT) White Blood Cell 6.2 4.0 - 9.5 x10(3)/[facility] Red Blood Cell 5.53 4.58 - 5.54 x10(6)/[facility] Hemoglobin 16.1 13.7 - 16.5 g/dL [facility] Hematocrit 46.9 40.5 - 48.5 % [facility] Mean Cell Volume 84.8 82.9 - 93.1 fL [facility] Mean Cell Hemoglobin 29.1 27.5 - 32.1 pg [facility] Mean Cell Hemoglobin Concentration 34.3 32.0 - 35.7 g/dL [facility] Platelet 187 145 - 357 x10(3)/[facility] RDW Standard Deviation 39.2 36.0 - 45.0 fL [facility] RDW coefficient of variation 12.6 11.4 - 13.8 % [facility] Mean Platelet Volume 9.5 7.6 - 12.9 fL [facility] NRBC% auto 0.0 % [facility] NRBC Absolute 0.000 0.000 - 0.000 x10(3)/[facility] Blood 01/09/2024 2:58 PM EDT 01/09/2024 3:03 PM EDT Narrative Resulting Agency Comment Spec In Lab Zak Farmer MD HEMATOLOGY ORDERABL ES [facility] [place] [address] * Basic Metabolic Panel (non-fasting) (01/09/2024 2:58 [...] CHEMISTRY ORDERABLE S [facility] [place] [address] * Hepatic Function Panel (01/09/2024 2:58 PM [...] MD CHEMISTRY ORDERABLE S Performing Organization Address [facility] Co de Phone Number [facility] [place] [address] * Prothrombin Time (01/09/2024 2:58 PM EDT) [...] HEMATOLOGY ORDERABL ES Performing Organization Address [facility] Co de Phone Number [facility] [place] [address] * Type and Screen Future Surgery, [facility] [place] [facility]) (01/09/2024 2:58 PM [...] BANK LAB ORDE RABLES Performing Organization Address City/[facility]/[place] [address] documented in this encounter Visit Diagnoses Diagnosis Nonrheumatic aortic valve stenosis Aortic valve disorders documented in this encounter Care Teams Salesperson Hearing Aids Relationship Specialty Start Date End Date Vanessa Christian APRN PCP - General Family Medicine 10/21/23 05/26/24 documented as of this encounter
--- OUTSIDE RECORDS SUMMARY | 2024-06-26 08:29 | XMS_ITS | Encounter Summary ---
Author Organization [facility] Address [facility] [place] [address] Care Team Providers Care Turbo Generator Oiler Name Role Phone Vanessa Christian APRN Primary Care Provider [phone] Encounter Details Date Type Department Care Team [...] PM EST Office Visit Cardiology at [address] [place] [address] Neftali Ernandez MD [facility] [place] [address] documented as of this encounter Visit Diagnoses Not on filedocumented in this encounter Care Teams Turbo Generator Oiler Relationship Specialty Start Date End Date Vanessa Christian APRN PCP - General Family Medicine 10/21/23 05/26/24 documented as of this encounter
--- OUTSIDE RECORDS SUMMARY | 2024-06-26 08:29 | XMS_ITS | Encounter Summary ---
Author Organization [facility] [place] [address] Care Team Providers Care Newborn Hearing Screener Name Role Phone Vanessa Christian Lane DOTSON Primary Care Provider [phone] Reason for Referral * Diagnostic Test (Routine) - Closed Specialty Diagnoses / Procedures Referred By Contac t Referred To Contact Radiology Diagnoses Nonrheumatic aortic valve stenosis Procedures CT Chest wo Contrast (Generic) Louisa Cho PA [facility] DR CARDIOTHORACIC [place] [address] [facility] [place] [address] Referral ID Status Reason Start Date Expiration Date V isits Requested Visits Authorized [id number] Closed Specialty Service Requested 01/10/2024 07/11/2025 1 1 Reason for Visit * Diagnostic Test (Routine) - Closed Specialty Diagnoses / Procedures Referred By Contac t Referred To Contact Radiology Diagnoses Nonrheumatic aortic valve stenosis Procedures CT Chest wo Contrast (Generic) Louisa Cho PA [facility] CARDIOTHORACIC [place] [address] [facility] [place] [address] Referral ID Status Reason Start Date Expiration Date V isits Requested Visits Authorized [id number] Closed Specialty Service Requested 01/10/2024 07/11/2025 1 1 Encounter Details Date Type Department Care Team (Latest Contact Info) Description 02/03/2024 7:36 AM EDT - 02/03/2024 8:05 AM EDT Hospital Encounter CT Scan at [facility] [place] [address] Zak Farmer MD [facility] CARDIOTHORACIC [place] [address] Nonrheumatic aortic valve stenosis Discharge Disposition: Home Social History Tobacco Use Types Packs/Day Years Used Date Smoking Tobacco: Former Cigarettes Smokeless Tobacco: Never Comments:Quit 15 + years ago Alcohol Use Standard Drinks/Week Comments Yes 0 (1 standard drink = 0.6 oz pur e alcohol) rare [facility] Inpatient Questions Answer Date Recorded Does [...] PM EST Office Visit Cardiology at [address] [place] [address] Neftali Ernandez MD [facility] [place] [address] documented as of this encounter Procedures Procedure Name Priority Date/Time Associated Diagnosis Comments CT CHEST WO CONTRAST (GENERIC) Routine 02/03/2024 7:44 AM EDT Nonrheumatic aortic valve stenosis documented in this encounter Results * CT Chest wo Contrast (Generic) (02/03/2024 7:44 AM EDT) [employer] WORKSTATION ID [id number] DH RAD Anatomical Region Laterality Modality Chest [...] ? Electronically signed by: Rogerio Wright MD, [facility] ([phone]), at 02/03/2024 10:00 AM Narrative 02/03/2024 10:00 [...] nodule along the minor fissure (series 302 [id number]) and a 8 mm right lower lobe [...] first. Electronically signed by: Rogerio Wright MD, [facility]([phone]), at 02/03/2024 10:00 AM Zak Farmer MD IMG CT ORDERABLES documented in this encounter Visit Diagnoses Diagnosis Nonrheumatic aortic valve stenosis Aortic valve disorders documented in this encounter Care Teams Newborn Hearing Screener Relationship Specialty Start Date End Date Vanessa Christian APRN PCP - General Family Medicine 10/21/23 05/26/24 documented as of this encounter
--- OUTSIDE RECORDS SUMMARY | 2024-06-26 08:29 | XMS_ITS | Encounter Summary ---
Author Organization [facility] Address [facility] [place] [address] Care Team Providers Care Shoe Reconditioner Name Role Phone aVnessa Christian PIPE STRAIGHTENER Primary Care Provider [phone] Reason for Referral * Diagnostic Test (Routine) - Closed Specialty Diagnoses / Procedures Referred By Contac t Referred To Contact Radiology Diagnoses Nonrheumatic aortic valve stenosis Procedures CT Chest wo Contrast (Generic) Louisa Reid PA [facility] [place] [address] [facility] [place] [address] Referral ID Status Reason Start Date Expiration Date V isits Requested Visits Authorized [id number] Closed Specialty Service Requested 01/10/2024 07/11/2025 1 1 Encounter Details Date Type Department Care Team (Late st Contact Info) Description 01/09/2024 Orders [place] [address] Zak Farmer MD [facility] [place] [address] Nonrheumatic aortic valve stenosis Social History Tobacco [...] PM EST Office Visit Cardiology at [address] [place] [address] Neftali Ernandez MD [facility] [place] [address] documented as of this encounter Results * CT Chest wo Contrast (Generic) (02/03/2024 7:44 AM EDT) WORKSTATION ID [id number] RAD Anatomical Region Laterality Modality Chest Computed [...] please contact the health memory care program director that requested your imaging first. ? Electronically signed by: Rogerio Wright MD, [facility] ([phone]), at 02/03/2024 10:00 AM Narrative 02/03/2024 10:00 [...] nodule along the minor fissure (series 302 [id number]) and a 8 mm right lower lobe [...] questions please contactthe health memory care program director that requested your imaging first. Electronically signed by: Rogerio Wright MD, [facility]([phone]), at 02/03/2024 10:00 AM Zak Farmer MD IMG CT ORDERABLES documented in this encounter Visit Diagnoses Diagnosis Nonrheumatic aortic valve stenosis Aortic valve disorders Nonrheumatic aortic valve stenosis Aortic valve disorders documented in this encounter Care Teams Shoe Reconditioner Relationship Specialty Start Date End Date Vanessa Christian APRN PCP - General Family Medicine 10/21/23 05/26/24 documented as of this encounter
--- OUTSIDE RECORDS SUMMARY | 2024-06-26 08:29 | XMS_ITS | Encounter Summary ---
Author Organization [facility] [place] [address] Care Team Providers Care Supervisor Silvering Department Name Role Phone Vanessa Christian MAURI Primary Care Provider [phone] Encounter Details Date Type Department Care Team (Late st Contact Info) Description 01/10/2024 Orders [place] [phone] Lawson Napoles PA [facility] [place] [address] Screening for cardiovascular condition; Aortic valve stenosis, [...] PM EST Office Visit Cardiology at [address] [place] [phone] Neftali Ernandez MD [facility] [place] [address] documented as of this encounter Visit Diagnoses Diagnosis Screening for cardiovascular condition Screening for other and unspecified cardiovascular conditions Aortic valve stenosis, etiology of cardiac valve disease unspecified documented in this encounter Care Teams Supervisor Silvering Department Relationship Specialty Start Date End Date Vanessa Christian APRN PCP - General Family Medicine 10/21/23 05/26/24 documented as of this encounter
--- OUTSIDE RECORDS SUMMARY | 2024-06-26 08:29 | XMS_ITS | Encounter Summary ---
Author Organization [facility] [address] Care Team Providers Care Vacuum Bottle Assembler Name Role Phone Vanessa Christian Lane DOTSON Primary Care Provider [phone] Encounter Details Date Type Department Care Team (Late st Contact Info) Description 01/09/2024 2:30 PM EDT Clinical Support Same Day at [facility] [place] [phone] Social History Tobacco Use Types Packs/Day Years [...] you tube link for a video about [facility] cardiac surgery. Instructed to bring the booklet [...] type and screen performed while in the [facility]. Sent to Radiology for chest x-ray. Special medication instructions: None Procedure date: not booked. Darian documented in this encounter Plan of Treatment Upcoming Encounters Date Type Department Care Team (Late st Contact Info) Description 11/30/2024 3:00 PM EST Office Visit Cardiology at [address] [place] [address] Neftali Ernandez MD [facility] [place] [address] documented as of this encounter Visit Diagnoses Not on filedocumented in this encounter Care Teams Vacuum Bottle Assembler Relationship Specialty Start Date End Date Vanessa Christian APRN PCP - General Family Medicine 10/21/23 05/26/24 documented as of this encounter
--- OUTSIDE RECORDS SUMMARY | 2024-06-26 08:29 | XMS_ITS | Encounter Summary ---
Author Organization [facility] [place] [address] Care Team Providers Care Gift Packer Name Role Phone Vanessa Christian MAURI Primary Care Provider [phone] Reason for Visit * Auth/Cert (Routine) Specialty [...] W RHC (WRVU 5.9) Rima Dickinson MD [facility] [place] [address] [facility] Referral ID Status Reason Start Date Expiration Date Visits Re quested Visits Authorized [id number] 1 1 Encounter Details Date Type Department Care Team (Latest Contact Info) Description 02/03/2024 8:06 AM EDT - 02/03/2024 2:54 PM EDT Hospital Encounter [place] [address] Rima Dickinson MD [facility] [place] [address] Screening for cardiovascular condition; Aortic valve stenosis, [...] Follow-up Visits 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 * CAD (Coronary Artery Disease): General Info ([place] Citizen) * Coronary Angiogram: Post-op ([place] Citizen) documented in this encounter Medications at Time [...] of this encounter H&P Notes * Clarence aLne MD - 02/03/2024 11:48 AM EDT [facility] Interventional Cardiology Adult Pre-Procedure H&P Update: Cardiac Catheterization Karlos Anthony [id number] 1960 Chief Complaint: Aortic stenosis HPI: Mr. [...] is inthe chart Clarence Lane MD Interventional Slurry Plant Operator 02/03/24 11:48 AM documented in this encounter Miscellaneous Notes * Brief Op Note - Clarence Lane MD - 02/03/2024 12:51 PM EDT Preliminary Cardiac Catheterization Procedure Note: Patient Name: Karlos Anthony : [id number] MR#: [id number] Case Date: 02/03/2024 Evp Managing Director: Surgeon(s) and Role: * Saira Lua [...] PM EST Office Visit Cardiology at [address] [address] Neftali Ernandez MD [facility] [place] [address] Scheduled Orders Name Type Priority Associated Diagnoses [...] Modality Other Narrative 02/12/2024 3:47 PM EDT ?[facility] ? Cardiac Catheterization/Intervention Report ? Patient Name: Patenaude, Karlos ? Procedure Date: 02/03/2024 ? A #: [id number] ? Primary Physician: Saira Lua ? Case #: [id number] ? File Name: [id number] ? Catheterization Order Number: [id number] ? [facility] ? Final Report [place], [place] ? Patient Name: ? Karlos Patenaude ? ID#: ?[id number] ? : ?1960 ? Procedure Date: ? [...] Procedure Note Saira Lua MD - 02/12/2024 [facility] Cardiac Catheterization/Intervention Report Patient Name: Karlos Anthony Procedure Date: 02/03/2024 A #: [id number] Primary Physician: Saira Lua Case #: [id number] File Name: [id number] Catheterization Order Number: [id number] [facility] FinalReport [place], [place] Patient Name: Karlos Anthony ID#:[id number] :1960 Procedure Date: February 03, 2024 Case [...] as ASA Class III. The [facility] clinical frailty scale is 3: Managing [...] (Bezet) 372 ms MUSE SYSTEM Calculated P [place] 59 degrees MUSE SYSTEM Calculated R [place] 34 degrees MUSE SYSTEM Calculated T [place] 63 degrees MUSE SYSTEM INTERPRETATION Sinus bradycardia [...] MD) documented in this encounter Care Teams Gift Packer Relationship Specialty Start Date End Date Vanessa Christian APRN PCP - General Family Medicine 10/21/23 05/26/24 documented as of this encounter
--- OUTSIDE RECORDS SUMMARY | 2024-06-26 08:29 | XMS_ITS | Encounter Summary ---
Author Organization [facility] Address [facility] [place] [address] Care Team Providers Care Singeing Torch Operator Name Role Phone Vanessa Christian MAURI Primary Care Provider [phone] Encounter Details Date Type Department Care Team (Late st Contact Info) Description 02/14/2024 Orders [place] [phone] Zak Farmer MD [facility] [place] [address] Coronary artery disease, unspecified vessel or lesion type, unspecified whether angina present, unspecified whether circle or transplanted heart (Primary Dx) Social History [...] PM EST Office Visit Cardiology at [address] [place] [phone] Neftali Ernandez MD [facility] [place]IOLOGY [place], [place] [phone] documented as of this encounter Results * EKG 12 Lead (03/12/2024 2:35 PM EDT) Ventricular rate 59 BPM MUSE SYSTEM Atrial Rate 59 BPM MUSE SYSTEM P-R Interval 190 ms MUSE SYSTEM QRS Duration 92 ms MUSE SYSTEM Q-T Interval 406 ms MUSE SYSTEM QTC Calculated (Bezet) 401 ms MUSE SYSTEM Calculated P [place] -12 degrees MUSE SYSTEM Calculated R [place] 24 degrees MUSE SYSTEM Calculated T [place] 74 degrees MUSE SYSTEM INTERPRETATION Sinus bradycardia T wave abnormality, consider anterior ischemia Abnormal ECG When compared with ECG of 17-FEB-2024 13:24, [place] interval has decreased T wave inversion now evident in Anterior leads Confirmed by Paul Guzman ([id number]) on 03/15/2024 8:36:23 AM MUSE SYSTEM 03/12/2024 2:35 PM EDT 03/15/2024 8:36 AM EDT Zak Farmer MD ECG ORDERABLES MUSE SYSTEM * XR Chest PA & Lateral (Generic) (03/12/2024 1:42 PM EDT) WORKSTATION ID [id number] RAD Anatomical Region Laterality Modality Chest N/A [...] questions please contact the health home care rn that requested your imaging first. ? Electronically signed by: Augie Sanchez MD, [facility] ([phone]), at 03/13/2024 8:28 AM Narrative 03/13/2024 8:28 AM EDT EXAMINATION: XR CHEST PA AND LATERAL (GENERIC) CLINICAL HISTORY: s/p cabg eval effusions I25.10, Atherosclerotic heart disease of circle coronary artery without angina pectoris TECHNIQUE: PA [...] eval effusions I25.10, Atherosclerotic heart disease of circle coronary artery withoutangina pectoris TECHNIQUE: PA and [...] have questions please contactthe health home care rn that requested your imaging first. Electronically signed by: Augie Sanchez MD, [facility]([phone]), at 03/13/2024 8:28 AM Zak Farmer MD IMG DX ORDERABLES documented in this encounter Visit Diagnoses Diagnosis Coronary artery disease, unspecified vessel or lesion type, unspecified whether angina present, unspecified whether circle or transplanted heart- Primary Coronary artery disease, unspecified vessel or lesion type, unspecified whether angina present, unspecified whether circle or transplanted heart documented in this encounter Care Teams Singeing Torch Operator Relationship Specialty Start Date End Date Vanessa Christian APRN PCP - General Family Medicine 10/21/23 05/26/24 documented as of this encounter
--- OUTSIDE RECORDS SUMMARY | 2024-06-26 08:30 | XMS_ITS | Data Portability ---
Author Organization [place] - [facility] Address [address] [place] [address] Care Team Providers Care Hand Fabric Cutter Name Role Phone VANESSA JORDAN Primary Care Provider Assessment No assessment recorded. Plan of Treatment Reminders Order Date Submit Date Provider Last Modified By Organization Details Last Modified Time Details Appointments None recorded . Lab magnesiu m, serum or plasma 024 12/18/19 24 [id number] [facility] (Registration ), [address] [place] [address] [place], [address], 4 14:25:25 BMP, serum or plasma 024 12/18/19 24 [email or web address] [facility] (Registration ), [address] [place] [address] [place], [address], 4 14:25:24 Referral None recorded . Procedures None recorded . Surgeries None recorded . Imaging None recorded . Medication Orders None recorded . Patient TargetsNo targets recorded. Patient Instructions Encounter Date Encounter Id Patient Instructions Last Modified By Organization Details Last Modified Time 09/19/2023 [id number] SCHEDULE FOLLOW UP IN 3 MONTHS IF YOU DONT HEAR FROM THE CARDIOLOGY DEPT THIS WEEK CALL [facility] PHARM SPEC AND LET THEM KNOW IF YOUR BREATHING GETS WORSE- GO TO THE ER, DONT OVER DO THINGS PHYSICALLY EXPECT A CALL FROM SARA ZAFAR RE: UPDATING YOUR POWER OF TELEGRAPHER AGENT (NEED 2 WITNESSED SIGNATURES) Not available 09/19/2023 09:25:07 12/18/2023 [id number] Karlos: expect a call from the STructural heart team at [facility] drink at least 6 glasses of water a day. checking kidney function and magnesium labs today will mail home. follow up in 3 months for BPH, Aortic stenosis. 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 for Referral Mine Safety Manager Referral for Roland ateral hearing loss Referring Physician: Vanessa Jordan, Family Medicine, Encounter Date: 02/26/2024 Results Created Date Observation Date Name Description Value Unit Range Abnormal Flag Note LastModifiedBy Organization Detail LastModifiedTime 12/18/19 24 12/18/2023 LASIC METAB OLIC PANEL calcium 9.3 mg/dL 8.5-10 .1 normal Not Available [address] [place], [address] 12/18/2023 17:09:55 12/18/19 24 12/18/2023 LASIC METAB OLIC PANEL glucose 90 mg/dL 74-106 normal Not Available Baljit montemayor [address] [place], [address] 12/18/2023 17:09:55 12/18/19 24 12/18/2023 LASIC METAB OLIC PANEL BUN 14 mg/dL 7-18 normal Not Available Baljit montemayor [address] [place], [address] 12/18/2023 17:09:55 12/18/19 24 12/18/2023 LASIC METAB OLIC PANEL creatinine 1.0 mg/dL 0.70-1 .30 normal Not Available [address] [place], [address] 12/18/2023 17:09:55 12/18/19 24 12/18/2023 LASIC METAB [...] young er-ag ed adult s. Not Available [address] [place], [address] 12/18/2023 17:09:55 12/18/19 24 12/18/2023 LASIC METAB OLIC PANEL sodium 139 mmol/ L 136-14 5 normal Not Available [address] [place], [address] 12/18/2023 17:09:55 12/18/19 24 12/18/2023 LASIC METAB OLIC PANEL potassium 4.9 mmol/ L 3.5-5. 1 normal Not Available [address] [place], [address] 12/18/2023 17:09:55 12/18/19 24 12/18/2023 LASIC METAB OLIC PANEL chloride 104 mmol/ L 98-107 normal Not Available [address] [place], [address] 12/18/2023 17:09:55 12/18/19 24 12/18/2023 LASIC METAB OLIC PANEL CO2 30.9 mmol/ L 21.0-3 2.0 normal Not Available [address] [place], [address] 12/18/2023 17:09:55 12/18/19 24 12/18/2023 LASIC METAB OLIC PANEL anion gap 4.1 mmol/ L 3-11 normal Not Available [address] [place], [address] 12/18/2023 17:09:55 12/18/19 24 12/18/2023 MAGNE SIUM magnesium 1.8 mg/dL 1.8-2. 4 normal Not Available [address] [place], [address] 12/18/2023 17:09:56 09/11/20 23 12/05/2022 trans -thor acic echoc ardio gram (TTE) (PROC ) No observ ation record ed. [email or web address] [facility] Xray [address] , [place], [address], 09/13/2023 09:29:52 09/11/20 23 06/01/2022 XR, hip, unila teral No observ ation record ed. [email or web address] Not Available 2022 09:29:19 09/11/20 23 12/06/2019 US, echoc ardio gram No observ ation record ed. [email or web address] [facility]- Cardiology [facility] [facility] [address], [place], [address], 09/13/2023 09:28:49 Result Notes None recorded. Problems Name Problem SNOMED Code Status Onset Date Resolution Date Notes Provider Name and Address Organization Details Recorded Time Gastroes ophageal reflux disease without esophagi tis 128474599 Active 2022 Problem Code: K21.9; Problem Code Type: ICD-10; Not Available [facility] 4 05:35:57 Glaucoma 14444442 Active 2022 Problem Code: H40.9; Problem Code Type: ICD-10; Not Available [facility] 4 05:35:57 Hyperlip idemia 71572593 Active 2022 Problem Code: E78.5; Problem Code Type: ICD-10; Not Available [facility] 4 05:35:57 [facility] hyperten niels 51578486 Active 2022 Problem Code: I10; Problem Code Type: ICD-10; Not Available [facility] 4 05:35:57 Pain of left hip joint 31688860275 9100 Active 2022 Problem Code: M25.552; Problem Code Type: ICD-10; Not Available [facility] 4 05:35:57 Idiopath ic osteoart hritis 609736016 Active 2022 Problem Code: M16.12; Problem Code Type: ICD-10; Not Available [facility] 4 05:35:57 Inguinal hernia 732789663 Active 2022 Problem Code: K40.90; Problem Code Type: ICD-10; Not Available [facility] 4 05:35:57 Heart murmur 54988895 Active 2022 Problem Code: R01.1; Problem Code Type: ICD-10; Not Available [facility] 4 05:35:57 Dyspnea 727724882 Active 2022 Problem Code: R06.09; Problem Code Type: ICD-10; Not Available [facility] 4 05:35:57 Chest pain 23905760 Active 2022 Problem Code: R07.89; Problem Code Type: ICD-10; Not Available [facility] 4 05:35:57 Melanocy tic nevus 230487408 Active 2022 Problem Code: D22.9; Problem Code Type: ICD-10; Not Available [facility] 4 05:35:57 Aortic stenosis , non-rheu matic 681940431 Active 2022 Problem Code: I35.0; Problem Code Type: ICD-10; Not Available [facility] 4 05:35:58 Aortic stenosis , non-rheu matic 087156113 Completed 202208/14/2023 Problem Code: I35.0; Problem Code Type: ICD-10; Not Available [facility] 4 05:35:58 Indigest ion 654749862 Active 2023 GLORIA CAMP LPN null, [facility] 4 08:48:57 Coronary artery bypass grafts x 3 Active 2023 Kelly Duran RN [facility], [facility] 4 10:30:01 At increase d risk of atrial fibrilla tion 879727575 Active [address], [place], [address] , [facility] 4 13:52:01 Anemia 105912566 Active [address], [place], [address] , [facility] 4 13:54:39 Problem Notes None recorded. Procedures Surgical History Date Name Laterality Status Provider Name and Address Organization Details Recorded Time coronary artery bypass graft completed Hudson Reeder [place] [facility] 03/04/2024 14:54:09 Imaging Results Imaging Date Name Status LastModified by Organization Details LastModified Time 12/05/2022 trans-thoracic echocardiogram (TTE) (PROC) completed [address] Xray [address] , [place], [address], 09/13/2023 09:29:52 06/01/2022 XR, hip, unilateral [place] [address] Information not available 09/13/2023 09:29:19 12/06/2019 US, echocardiogram completed [address]- Cardiology [address] [facility] , [place], [address], 09/13/2023 09:28:49 Procedure Notes None recorded. Medical [...] es. Take 1 hr prior. Started by [facility]. Not Available Not Available Not Available doxycycli [...] BY MOUTH DAILY 02/24 completed stopped by [facility] Not Available Not Available Not Available brimonidi [...] hours by oral route as needed. active [facility] Not Available Not Available No t Available Aspirin Childrens 81 mg chewable tablet Take 1 tablet by mouth once a day active Not Available Not Available No t Available lisinopri l 5 mg tablet TAKE 1 TABLET BY MOUTH EVERY DAY 02/24 completed stopped by [facility] Not Available Not Available Not Available mupirocin [...] day by oral route. active started by [facility] Not Available Not Available Not Available dorzolami de 2 % (PF) eye drops 1 drop both eyes bid 12/17 completed Not Available Not Available Not Available Vitals Date Recorded Body weight Body mass index (BMI) Body height Heart rate Systolic blood pressure Diastolic blood pressure Provider Name and Address Organization Details Last Updated DateTime 3 18184.7 8 g 23.7 kg/m2 167.64 cm 64 /min 110 mm[Hg] 60 mm[Hg] GLORIA CAMP LPN [facility]. 3 08:48:49 Date Recorded Body height Body mass index (BMI) Body weight Heart rate Systolic blood pressure Diastolic blood pressure Provider Name and Address Organization Details Last Updated DateTime 4 167.64 cm 24.6 kg/m2 70810.4 4 g 60 /min 112 mm[Hg] 80 mm[Hg] GLORIA CAMP LPN [facility] 4 08:38:13 Date Recorded Body height Body mass index (BMI) Body weight Heart rate Oxygen saturation Oxygen saturation in Arterial blood by Pulse oximetry Systolic blood pressure Diastolic blood pressure Provider Name and Address Organization Details Last Updated DateTime 4 167.64 cm 22.6 kg/m2 81773.6 5 g 63 /min 99 % 99 % 102 mm[Hg] 54 mm[Hg] Hudson Reeder MA [facility] 4 10:27:28 Social History Question Answer Notes LastModified by Organizat ion Details LastModified Time Tobacco Smoking Status Former Smoker Hudson Reeder MA null, [facility] 03/06/2024 10:24:50 Do You Have An Advance Directive? Yes Registered 08/15/23 Updated 01/12/24 Information not available 01/15/2024 When Did You Quit Smoking? 11-15years sincelastc igarette [email or web address] Information not available 03/06/2024 Do You Have A Medical Power Of Linter Operator? Yes Received 08/30/23, Scanned. Copies Sent To [facility] And Patient 09/02/23. Information not available 09/02/2023 What Was The Date Of Your Most Recent Tobacco Screening? 03/06/2024 [email or web address] Information not available 03/06/2024 What Is Your Current Pack Years? 30ormorepa ckyears [email or web address] Information not available 03/06/2024 How Much Tobacco Do You Smoke? 1 PPD [email or web address] Information not available 03/06/2024 How Many Years Have You Smoked Tobacco? 40 [email or web address] Information not available 03/06/2024 Do You Or Have You Ever Used Any Other Forms Of Tobacco Or Nicotine? No [email or web address] Information not available 03/06/2024 Sex: Male Functional [...] Recorded Time Tdap 08/26/2013 completed Not Available [facility] 05:30:17 Td(adult) unspecified formulation 11/21/2022 completed Not Available [facility] 10/18/2023 05:30:17 COVID-19, mRNA, LNP-S, PF, 100 mcg/0.5mL dose or 50 mcg/0.25mL dose 01/24/2021 completed Not Available [facility] 10/18/19 05:30:18 COVID-19, mRNA, LNP-S, PF, 100 mcg/0.5mL dose or 50 mcg/0.25mL dose 02/21/2021 completed Not Available [facility] 10/18/19 05:30:18 COVID-19, mRNA, LNP-S, PF, 100 mcg/0.5mL dose or 50 mcg/0.25mL dose 09/11/2021 completed Not Available [facility] 10/18/19 05:30:18 influenza, unspecified formulation 07/26/2021 completed Not Available [facility] 10/18/2023 05:30:18 influenza, unspecified formulation 07/26/2022 completed Not Available [facility] 10/18/2023 05:30:18 influenza, unspecified formulation 07/28/2020 completed Not Available [facility] 10/18/2023 05:30:18 influenza, unspecified formulation 08/05/2019 completed Not Available [facility] 10/18/2023 05:30:18 influenza, unspecified formulation 08/12/2018 completed Not Available [facility] 10/18/2023 05:30:18 Past Encounters Encounter ID Performer Location Encounter Start Date Encounter Closed Date Diagnosis/Indication Diagnosis SNOMED-CT Code Diagnosis ICD10 Code [id number] [address] [address] 09/19/2023 08:39:51 09/19/2023 09:17:42 Aortic valve stenosis 26740722 I35.0 Essential hypertension 70024025 I10 [id number] [address] [address] 12/18/2023 08:23:47 12/18/2023 09:29:09 Aortic stenosis, non-rheumatic 094965493 I35.0 Essential hypertension 50892430 I10 Nonulcer dyspepsia 36615 07 K30 Cramp in lower leg 79071 8009 R25.2 [id number] TATYANA LEDEZMA MD [address] [address] 03/06/2024 10:15:07 03/06/2024 11:14:28 Postoperative visit 771598648 Z48.89 Aortic rosa m nosis, non-rheumatic 041624852 I35.0 Stented co ronary artery 323539479 Z95.5 At [facility] risk of atrial fibrillation 527890601 Z91.89 Anemia 934608569 D64.9 Health Concerns Section Related Observation LastModified by Organization Detai ls LastModified Time None Recorded Concern Status LastModified by Organization Details LastModified Time None Recorded Advance Directives Directive Y: Registered 08/15/23Updated 01/12/24 Payers Encounter Date Sequence Insurance Name Policy Number Policy Alicia Covered Member ID Alicia Member ID Guarantor Name 12/18/2023 1 [employer] [id number] Karlos C Patenaude [id number] Karlos C Patenaude 03/06/2024 1 UMR [id number] Karlos C Patenaude [id number] Karlos C Patenaude Notes Date Note Type Note Provider Name and Address Organization Details Recorded Time 09/19/2023 text/html HPI Notes: 63-year-old man here for follow-up hypertension, severe aortic stenosis., He works full-time at [employer]. He lives at home with his dog. [...] trivial to mild aortic insufficiency. Vanessa lizarraga [place] [employer] [facility]. 09/19/2023 13:31:38 12/18/2023 text/html HPI Notes: 63-year-old man here for follow-up hypertension, severe aortic stenosis., He works full-time at [employer]. He lives at home with his dog. [...] repair a number of years ago at [facility], it is starting to cause some discomfort. Reports leg cramps at nighttime intermittently, improves when he has a Gatorade during the daytime and Ovaltine in his coffee. Vanessa lizarraga [place] [employer] [facility]. 12/18/2023 11:43:00 03/06/2024 text/html HPI Notes: Ana Paula marlow is here today for a postop evaluation TATYANA LEDEZMA MD [address], [place], [address], [facility]. 03/08/2024 13:57:34
--- OUTSIDE RECORDS SUMMARY | 2024-06-26 08:30 | XMS_ITS | Encounter Summary ---
Author Organization [facility] [place] [address] Care Team Providers Care Mineral Surveyor Name Role Phone Vanessa Christian APRN Primary Care Provider [phone] Encounter Details Date Type Department Care Team [...] PM EST Office Visit Cardiology at [address] [place] [phone] Neftali Ernandez MD [facility] [place] [address] documented as of this encounter Visit Diagnoses Not on filedocumented in this encounter Care Teams Mineral Surveyor Relationship Specialty Start Date End Date Vanessa Christian APRN PCP - General Family Medicine 10/21/23 05/26/24 documented as of this encounter
--- OUTSIDE RECORDS SUMMARY | 2024-06-26 08:30 | XMS_ITS | Encounter Summary ---
[place] [address] Care Team Providers Care Flat Breakdown Processor Name Role Phone Victor M Lafleur MD Primary Care Provider [phone] Reason for Visit * Reason Onset Date Comments Referral 09/20/2023 Encounter Details Date Type Department Care Team (Late st Contact Info) Description 09/20/2023 Telephone Cardiology at [address] [address] Karen Billy, textile screen maker Social History Tobacco Use Types Packs/Day Years [...] PM EST Office Visit Cardiology at [address] [place] [address] Neftali Ernandez MD [facility] [place] [address] documented as of this encounter Visit Diagnoses Not on filedocumented in this encounter Care Teams Flat Breakdown Processor Relationship Specialty Start Date End Date VictorM Lafleur MD PCP - General 10/02/13 10/20/23 documented as of this encounter
--- OUTSIDE RECORDS SUMMARY | 2024-06-26 08:30 | XMS_ITS | Encounter Summary ---
Author Organization [place] [address] Care Team Providers Care Building Engineer Name Role Phone Victor M Lafleur MD Primary Care Provider [phone] Encounter Details Date Type Department Care Team (Late st Contact Info) Description 09/26/2023 Abstract Cardiology at [address] [address] Karen Billy, RN Nonrheumatic aortic [...] PM EST Office Visit Cardiology at [address] [place] [address] Neftali Ernandez MD [facility] [place] [address] documented as of this encounter Visit Diagnoses Diagnosis Nonrheumatic aortic valve stenosis Aortic valve disorders Nevus of face Benign neoplasm of skin of other and unspecified parts of face documented in this encounter Care Teams Building Engineer Relationship Specialty Start Date End Date Victor M Lafleur MD PCP - General 10/02/13 10/20/23 documented as of this encounter
--- OUTSIDE RECORDS SUMMARY | 2024-06-26 08:30 | XMS_ITS | Encounter Summary ---
Author Organization [facility] [place] [address] Care Team Providers Care Distribution Operation Supervisor Name Role Phone Vanessa Christian APRN Primary Care Provider [phone] Encounter Details Date Type Department Care Team (Late st Contact Info) Description 12/26/2023 Notes Only Cardiology at [address] [address] Neftali Ernandez MD [facility] [place] [address] Social History Tobacco Use Types Packs/Day Years [...] 1:37 PM EDT Echocardiogram images reviewed from [facility]. Indeed, the aortic valve appears severely stenotic. Cannotrule out bicuspid valve documented in this encounter Plan of Treatment Upcoming Encounters Date Type Department Care Team (Late st Contact Info) Description 11/30/2024 3:00 PM EST Office Visit Cardiology at [address] [address] Neftali Ernandez MD [facility] [place] [address] documented as of this encounter Visit Diagnoses Not on filedocumented in this encounter Care Teams Distribution Operation Supervisor Relationship Specialty Start Date End Date Vanessa Christian APRN PCP - General Family Medicine 10/21/23 05/26/24 documented as of this encounter
--- OUTSIDE RECORDS SUMMARY | 2024-06-26 08:30 | XMS_ITS | Encounter Summary ---
Author Organization [facility] Address [facility] [address] [address] [id number] Care Team Providers Care Charge Auditor Name Role Phone Vanessa Christian MAURI Primary Care Provider [phone] Reason for Referral * Consultation (Routine) - Closed Specialty Diagnoses / Procedures Referred By Contac t Referred To Contact Cardiac Surgery Diagnoses Nonrheumatic aortic valve stenosis significant - TAVR ( defers to Card Surg d/t age) Errol Loya MD [facility] [place] [address] Zak Farmer MD [facility] [place] [address] Referral ID Status Reason Start Date Expiration Date V isits Requested Visits Authorized [id number] Closed Consult, Test & Treat 10/21/2023 10/20/2024 1 1 Reason for Visit * Reason Comments Chest Pain Shortness of Breath Aortic Stenosis Encounter Details Date Type Department Care Team (Late st Contact Info) Description 10/21/2023 1:20 PM EST Office Visit Cardiology at [address] [address] Errol Loya MD [facility] [place] [address] Nonrheumatic aortic valve stenosis Social History Tobacco [...] Problem List Diagnosis Aortic stenosis 12/2022 TTE ([facility]): VITA 0.8-0.9 cm2 (MG 28 mmHg, DOI 3.6 m/s, SVI 35 cc/m2). Trace regurgitation. Normal bi-v s/f, no other valve findings Gastroesophageal reflux Nevus of face Right amish Hypertension HLD (hyperlipidemia) MEDICATIONS: Current Outpatient Medications [...] the meantime will refer to T at [facility] for further evaluation. Logistics and preliminary review [...] the meantime will refer to T at [facility] for further evaluation. Logistics and preliminary review [...] PM EST Office Visit Cardiology at [address] [place] [phone] Errol Loya MD [facility] [place] [address] Scheduled Referrals Name Type Priority Associated Diagnoses Order Schedule Amb Referral to Structural Heart Outpatient Referral Routine Nonrheumatic aortic valve stenosis Ordered: 10/21/2023 documented as of this encounter Visit Diagnoses Diagnosis Nonrheumatic aortic valve stenosis Aortic valve disorders documented in this encounter Care Teams Charge Auditor Relationship Specialty Start Date End Date Vanessa Christian APRN PCP - General Family Medicine 10/21/23 05/26/24 documented as of this encounter
--- OUTSIDE RECORDS SUMMARY | 2024-06-26 08:30 | XMS_ITS | Encounter Summary ---
Author Organization [facility] [place] [address] Care Team Providers Care Drafting Detailer Name Role Phone Vanessa Christian APRN Primary Care Provider [phone] Encounter Details Date Type Department Care Team (Late st Contact Info) Description 10/21/2023 Abstract Cardiology at [address] [place] [address] Adam Mayes RN Social History Tobacco Use [...] PM EST Office Visit Cardiology at [address] [place] [address] Neftali Ernandez MD [facility] [place] [address] documented as of this encounter Visit Diagnoses Not on filedocumented in this encounter Care Teams Drafting Detailer Relationship Specialty Start Date End Date Vanessa Christian APRN PCP - General Family Medicine 10/21/23 05/26/24 documented as of this encounter
--- OUTSIDE RECORDS SUMMARY | 2024-06-26 08:30 | XMS_ITS | Encounter Summary ---
Author Organization [facility] [place] [address] Care Team Providers Care Rail Grinder Name Role Phone Vanessa Christian APRN Primary Care Provider [phone] Encounter Details Date Type Department Care Team (Late st Contact Info) Description 10/21/2023 Abstract Cardiology at [address] [phone] Adam Mayes RN Social History Tobacco Use [...] PM EST Office Visit Cardiology at [address] [phone] Neftali Ernandez MD [facility] [place] [address] documented as of this encounter Visit Diagnoses Not on filedocumented in this encounter Care Teams Rail Grinder Relationship Specialty Start Date End Date Vanessa Christian APRN PCP - General Family Medicine 10/21/23 05/26/24 documented as of this encounter
--- OUTSIDE RECORDS SUMMARY | 2024-06-29 08:03 | XMS_ITS | Encounter Summary ---
Author Organization [facility] Address [address] [place] [address] Care Team Providers Care Dwarf Tree Grower Name Role Phone Vanessa Christian Lane MONCADA Primary Care Provider [phone] Encounter Details Date Type Department Care Team (Late st Contact Info) Description 10/24/2023 Lab Requisition [facility] Pathology & Laboratory Medicine - [address] [address] Oscar Nichole MD [address] [place] [address] [id number] Factitial dermatitis Social History Tobacco Use Types [...] management options, if applicable. 10/28/2023 11:24 EST [facility] Final Diagnosis A. SKIN OF TENRIISM, LEFT, SHAVE BIOPSY: - Seborrheic keratosis, pigmented. 10/28/2023 11:24 EST [facility] Attestation By the signature below, the attending physician certifies that they have 1) personally conducted a gross and/or microscopic examination of the described specimen(s), and/or personally interpreted the results of laboratory testing of the described specimen(s), and 2) personally rendered or confirmed the above diagnosis. 10/28/2023 11:24 [facility] at 1124 Microscopic Description The stratum corneum is thickened by compact and basketweave orthokeratosis with formation of horn pseudocysts. The epidermis is acanthotic with formation of broad and anastomosing trabeculae. The trabeculae are composed of basaloid keratinocytes with round uniform nuclei. The keratinocytes have a variable amount of melanin pigment. 10/28/2023 11:24 [facility] Clinical History Pigmented 2 cm patch; clinical diagnosis code: L98.1 10/28/2023 11:24 [facility] Gross Description A. Received in formalin labelled with proper patient identification (initials P, A) and left tenriism is a shave biopsy of an irregular [...] A3. Nora Anderson 10/25/2023 8:47 10/28/2023 11:24 [facility] Performing Lab [facility] 10/28/2023 11:24 [facility] Scanned Images 10/28/2023 11:24 [facility] Tissue SPECIMEN FROM SKIN / Unknown 10/24/2023 14:30 EST 10/24/2023 22:04 EST Oscar Nichole MD PATHOLOGY ORDERABLES [facility] [address] [place] [address] documented in this encounter Visit Diagnoses Diagnosis Factitial dermatitis Dermatitis factitia (artefacta) documented in this encounter Care Teams Dwarf Tree Grower Relationship Specialty Start Date End Date Vanessa Christian NP [address] [place] [address] PCP - General Family Medicine - Primary Care 10/07/23 documented as of this encounter
--- OUTSIDE RECORDS SUMMARY | 2024-06-29 08:03 | XMS_ITS | Encounter Summary ---
Author Organization [facility] Address [facility] [place] [address] Care Team Providers Care Bank Messenger Name Role Phone Vanessa Christian MAURI Primary Care Provider [phone] Encounter Details Date Type Department Care Team [...] PM EST Office Visit Cardiology at [address] [phone] Neftali Ernandez MD [facility] [place] [address] documented as of this encounter Visit Diagnoses Not on filedocumented in this encounter Care Teams Bank Messenger Relationship Specialty Start Date End Date Vanessa Christian APRN PCP - General Family Medicine 10/21/23 05/26/24 documented as of this encounter
--- OUTSIDE RECORDS SUMMARY | 2024-06-29 08:03 | XMS_ITS | Encounter Summary ---
Author Organization [facility] Address [facility] [place] [address] Care Team Providers Care Wire Winding Machine Tender Name Role Phone Vanessa Christian MAURI Primary Care Provider [phone] Encounter Details Date Type Department Care Team (Latest Contact Info) Description 03/12/2024 1:30 PM EDT - 03/12/2024 11:59 PM EDT Hospital Encounter XRay at [address] [place] [address] Coronary artery disease, unspecified vessel or lesion type, unspecified whether angina present, unspecified whether [place] or transplanted heart Discharge Disposition: Home Social History Tobacco Use Types Packs/Day Years Used Date Smoking Tobacco: Former Cigarettes Smokeless Tobacco: Never Comments:Quit 15 + years ago Alcohol Use Standard Drinks/Week Comments Yes 0 (1 standard drink = 0.6 oz pur e alcohol) rare [facility] Utilities Answer Date Recorded In the past 12 months has e [employer], gas, oil, or water [employer] threatened to shut off services in your [...] PM EST Office Visit Cardiology at [address] [place] [address] Neftali Ernandez MD [facility] [place] [address] documented as of this encounter Procedures Procedure Name Priority Date/Time Associated Diagnosis Comments XR CHEST PA AND LATERAL Routine 03/12/2024 1:42 PM EDT Coronary artery disease, unspecified vessel or lesion type, unspecified whether angina present, unspecified whether [place] or transplanted heart documented in this encounter Results * XR Chest PA & Lateral (Generic) (03/12/2024 1:42 PM EDT) WORKSTATION ID [id number] RAD Anatomical Region Laterality Modality Chest N/A [...] please contact the health home health care provider that requested your imaging first. ? Narrative 03/13/2024 8:28 AM EDT EXAMINATION: XR CHEST PA AND LATERAL (GENERIC) CLINICAL HISTORY: s/p cabg eval effusions I25.10, Atherosclerotic heart disease of [place] coronary artery without angina pectoris TECHNIQUE: [...] effusions I25.10, Atherosclerotic heart disease of [place] coronary artery withoutangina pectoris TECHNIQUE: PA [...] questions please contactthe health home health care provider that requested your imaging first. Zak Farmer MD IMG DX ORDERABLES documented in this encounter Visit Diagnoses Diagnosis Coronary artery disease, unspecified vessel or lesion type, unspecified whether angina present, unspecified whether [place] or transplanted heart documented in this encounter Care Teams Wire Winding Machine Tender Relationship Specialty Start Date End Date Vanessa Christian, MAURI PCP - General Family Medicine 10/21/23 05/26/24 documented as of this encounter
--- OUTSIDE RECORDS SUMMARY | 2024-06-29 08:03 | XMS_ITS | Encounter Summary ---
Author Organization [facility] Address [facility] [place] [address] Care Team Providers Care Design Cell Engineer Name Role Phone Vanessa Christian MAURI Primary Care Provider [phone] Encounter Details Date Type Department Care Team (Latest Contact Info) Description 05/20/2024 Travel Social History Tobacco Use Types Packs/Day Years Used Date Smoking Tobacco: Former Cigarettes Smokeless Tobacco: Never Comments:Quit 15 + years ago Alcohol Use Standard Drinks/Week Comments Yes 0 (1 standard drink = 0.6 oz pur e alcohol) rare [facility] Utilities Answer Date Recorded In the past [...] PM EST Office Visit Cardiology at [address] [phone] Neftali Ernandez MD [facility] [place] [place] [address] documented as of this encounter Visit Diagnoses Not on filedocumented in this encounter Care Teams Design Cell Engineer Relationship Specialty Start Date End Date Vanessa Christian APRN PCP - General Family Medicine 10/21/23 05/26/24 documented as of this encounter
--- OUTSIDE RECORDS SUMMARY | 2024-06-29 08:03 | XMS_ITS | Encounter Summary ---
Author Organization [facility] Address [facility] [place] [address] Care Team Providers Care Bakery Clerk Name Role Phone Vanessa Christian Lane DOTSON Primary Care Provider [phone] Reason for Visit * Reason Comments Coronary Artery Disease Aortic Stenosis Encounter Details Date Type Department Care Team (Latest Contact Info) Description 05/27/2024 11:00 AM EDT Office Visit Cardiology at [address] [place] [phone] Neftali Ernandez MD [facility] [place] [address] ASCVD (arteriosclerotic cardiovascular disease); Nonrheumatic aortic valve stenosis Social History Tobacco Use Types Packs/Day Years Used Date Smoking Tobacco: Former Cigarettes Smokeless Tobacco: Never Comments:Quit 15 + years ago Alcohol Use Standard Drinks/Week Comments Yes 0 (1 standard drink = 0.6 oz pur e alcohol) rare [facility] Utilities Answer Date Recorded In the past 12 months has e [employer], gas, oil, or water [employer] threatened to shut off services in [...] PM EST Office Visit Cardiology at [address] [phone] Neftali Ernandez MD [facility] [place] [address] documented as of this encounter Visit Diagnoses Diagnosis ASCVD (arteriosclerotic cardiovascular disease) Unspecified cardiovascular disease Nonrheumatic aortic valve stenosis Aortic valve disorders documented in this encounter Care Teams Bakery Clerk Relationship Specialty Start Date End Date Vanessa Christian APRN [address] [place] [address] PCP - General Family Medicine 05/27/24 documented as of this encounter
--- OUTSIDE RECORDS SUMMARY | 2024-06-29 08:03 | XMS_ITS | Encounter Summary ---
Author Organization [facility] Address [facility] [place] [address] Care Team Providers Care Electrical And Instrumentation Manager Name Role Phone Vanessa Christian MAURI Primary Care Provider [phone] Encounter Details Date Type Department Care Team (Late st Contact Info) Description 03/12/2024 2:40 PM EDT Office [place] [phone] Zak Farmer MD [facility] C[place]OTHORAC[place] [address] Coronary artery disease, unspecified vessel or lesion type, unspecified whether angina present, unspecified whether [place] or transplanted heart Social History Tobacco Use Types Packs/Day Years Used Date Smoking Tobacco: Former Cigarettes Smokeless Tobacco: Never Comments:Quit 15 + years ago Alcohol Use Standard Drinks/Week Comments Yes 0 (1 standard drink = 0.6 oz pur e alcohol) rare [facility] Utilities Answer Date Recorded In the past 12 months has e [employer], gas, oil, or water [employer] threatened to shut off services in your [...] 2:40 PM EDT To: MD Vanessa Coles, WEB SERVICES ARCHITECT Re; Karlos Santa ( 1960) We had [...] office. Best personal regards, Zak Farmer MD [phone] documented in this encounter Plan of Treatment Upcoming Encounters Date Type Department Care Team (Late st Contact Info) Description 11/30/2024 3:00 PM EST Office Visit Cardiology at [address] [place] [address] Neftali Ernandez MD [facility] [place] [address] documented as of this encounter Procedures Procedure [...] (Bezet) 401 ms MUSE SYSTEM Calculated P [place] -12 degrees MUSE SYSTEM Calculated R [place] 24 degrees MUSE SYSTEM Calculated T [place] 74 degrees MUSE SYSTEM INTERPRETATION Sinus bradycardia T wave abnormality, consider anterior ischemia Abnormal ECG When compared with ECG of 17-FEB-2024 13:24, MS interval has decreased T wave inversion now evident in Anterior leads Confirmed by Paul Guzman ([id number]) on 03/15/2024 8:36:23 AM MUSE SYSTEM 03/12/2024 [...]
--- OUTSIDE RECORDS SUMMARY | 2024-06-29 08:03 | XMS_ITS | Referral Summary ---
Author Organization [facility] Address [address] [place] [address] Care Team Providers Care Travel Registered Nurse Oncology Name Role Phone Filidayna Vanessa Sherman NP Primary Care Provider [phone] Social History Tobacco Use Types Packs/Day Years Used Date Smoking Tobacco: Never Assessed Sex and Gender Information Value Date Recorded Sex Assigned at Not on file Gender Identity Not on file Sexual Orientation Not on file Plan of Treatment Not on file Care Teams Travel Registered Nurse Oncology Relationship Specialty Start Date End Date Vanessa Christian NP [address] [place] [address] PCP - General Family Medicine - Primary Care 10/07/23
--- OUTSIDE RECORDS SUMMARY | 2024-06-29 08:03 | XMS_ITS | Clinical Summary ---
Author Organization [facility] Address [address] [place] [address] Care Team Providers Care Sports Leadership Instructor Name Role Phone Vanessa Christian NP Primary Care Provider [phone] Social History Tobacco Use Types Packs/Day Years [...] COVID-19 Vaccine (2022- season) 2024 Care Teams Sports Leadership Instructor Relationship Specialty Start Date End Date Vanessa Christian NP [address] [place] [phone] PCP - General Family Medicine - Primary Care 10/07/23
--- OUTSIDE RECORDS SUMMARY | 2024-06-29 08:03 | XMS_ITS | Encounter Summary ---
[place] [address] Care Team Providers Care Speech Language Pathologist Name Role Phone Aparna Jordan MAURI Primary Care Provider [phone] Reason for Referral * Diagnostic Test (Routine) - New Request Specialty Diagnoses / Procedures Referred By Contac t Referred To Contact Cardiology Diagnoses S/P AVR Procedures Echocardiogram Transthoracic Neftali Menon PA [facility] [place] [address] [facility] [place] [address] Referral ID Status Reason Start Date Expiration Date Visits Requested Visits Authorized [id number] New Request Specialty Service Requested 02/24/2024 02/23/2025 1 1 * Consultation (Routine) - Authorized Specialty Diagnoses / Procedures Referred By Contac t Referred To Contact Cardiology Diagnoses S/P AVR Hayder Graham MD [facility] [place] [address] Cardiac Rehab, [facility] [address] [place] [address] [place] [address] Referral ID Status Reason Start Date Expiration Date Visits Requested Visits Authorized [id number] Authorized Consult, Test & Treat 02/24/2024 08/22/2024 36 36 * Home Health Care (Routine) - Authorized Specialty Diagnoses / Procedures Referred By Sixto mendoza Referred To Contact Diagnoses S/P AVR Hayder Graham MD [facility] [place] [address] Referral ID Status Reason Start Date Expiration Date Visits Requested Visits Authorized [id number] Authorized Consult, Test & Treat 02/24/2024 08/22/2024 [...] MD [facility] [place] [address] [facility] Referral ID Status Reason Start Date Expiration Date Visits Re quested Visits Authorized [id number] 1 1 Encounter Details Date Type Department Care Team (Latest Contact Info) Description 02/17/2024 5:43 AM EDT - 02/24/2024 11:23 AM EDT Hospital Encounter Heart and Vascular Unit Level 4 [place] [address] Hayder Graham MD [facility] [place] [address] S/P AVR (Primary Dx); Aortic valve stenosis, etiology of cardiac valve disease unspecified Discharge Disposition: Home with VNA Social History Tobacco Use Types Packs/Day Years Used Date Smoking Tobacco: Former Cigarettes Smokeless Tobacco: Never Comments:Quit 15 + years ago Alcohol Use Standard Drinks/Week Comments Yes 0 (1 standard drink = 0.6 oz pur e alcohol) rare [facility] Utilities Answer Date Recorded In [...] Patient Age: 63 y.o. Birthdate: 1960 Language: Marshallese Race: White Ethnicity: Not nor Admit Date: 02/17/2024 Discharge Date: 02/24/24 Attending Physician: Hayder Graham MD Follow-up Recommendations for Providers: Please continue routine management of cardiovascular risk factors including blood pressure, lipids,glucose, etc. Please note any changes to medications. Patient to follow up with PCP, Aparna Jordan APRN, in 1-2 weeks. Patient to follow up with Parts Person, Neftali Ernandez MD , in 2 weeks. Patient to follow up with Cardiac Surgeon, Dr. Hayder Graham, with a chest x-ray, EKG, and Echo. Inpatient Provider Contact Information: [facility] Section of Cardiac Surgery [facility] [address] FAX [phone] Discharge Diagnoses (Hospital Problems) Primary Diagnoses: /CAD [...] 33.75) performed by Hayder Graham MD at [facility] MAIN OR PRO CABG, ARTERY-VEIN, TWO N/A 02/17/2024 @CABG, TWO VENOUS GRAFTS & ARTERIAL GRAFT (WRVU 7.93) performed by Hayder Graham MD at [facility] MAIN OR PRO ENDOSCOPY W/VIDEO-ASST VEIN HARVEST, CABG Left 02/17/2024 ENDOSCOPIC HARVEST VEIN(S) FOR CABG (WRVU 0.31) performed by Hayder Graham MD at [facility] MAIN OR PRO REPLACEMENT PROSTHETIC AORTIC VALVE OPEN W CARDIOPULMONARY BYPASS HOMOGRF/STENT N/A 02/17/2024 @REPLACE AORTIC VALVE, OPEN, W\CPB, W\PROSTHETIC VALVE (WRVU 41.32) performed by Hayder Graham MD at [facility] MAIN OR Prior To Admission [...] insufficiency. He has glaucoma. He used to [employer] until about 15 years ago. He has undergone prior herniorrhaphy. 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 Major Procedures/Operations: 02/17/24 s/p avr/cabgx3 CABG x 3 JOSE->LAD SVG->dRCA SVG->OM1 EVH from LLE AVR with a 23 mm Inspiris Bioprosthesis Hospital Course: Karlos Garcia was admitted to [facility] on 02/17/2024 via the Same Day Program. [...] Hayder Graham and/or the Cardiac Surgery Physician Pad Extractor Tender Team may be reached at . Antibiotic [...] Please refer to the card with the [place] [employer] Guidelines for more information. You [...] Dr. Hayder Graham. You may use a [place] Track or treadmill but avoid any pulling [...] friends, go to a movie, go to taoism, etc. Heavy activities: No hunting, skiing, jogging, [...] should resume a low fat, low cholesterol, [place] Heart [employer] Diet. Driving: No driving until [...] while being managed by your PCP and/or Parts Person. For future medication refills, please refer to your PCP and/or Parts Person after your discharge from our service. Thank you REMOVE CHEST TUBE SUTURES ON OR AFTER 03/02/24 Home oxygen therapy: N/A Follow up appointments: You should follow up with your PCP, Aparna Jordan APRN, in 1-2 weeks. Our office will schedule an appointment with your Parts Person, Neftali Ernandez MD , in 2 weeks. You have an appointment with your Cardiac Surgeon, Dr. Hayder Graham, 4 weeks with a chest x-ray, EKG, and Echo before your appointment. Cardiac Rehabilitation: Karlos Garcia was seen regarding participation in the outpatient Phase 2Cardiac Rehabilitation at [facility]. The patient agrees to a referral to this program. The referral will be sent at discharge and the patient should be contacted by the Program within 1- 2 weeks from discharge. Future Appointments and Orders Future Orders Complete By Expires Echocardiogram Transthoracic [92359 CPT(R)] 03/26/2024 09/25/2024 Process Instructions: Scheduling Instructions: Questions: Where will study be performed?: [facility] Clinics Does the patient have Congenital Heart Disease?: Does patient require sedation?: Sedation rationale: XR Chest PA & Lateral (Generic) [61434 88926 Custom] 03/26/2024 09/25/2024 Process Instructions: Scheduling Instructions: Questions: Portable exam?: Reason for exam and clinical history: s/p avr/cabg Clinical information / jerome questions for radiologist: Stat read required?: Date of injury if applicable: Requested Time: Where will study be performed?: [facility] Radiology Referral to Cardiac Rehab [EGT578 Custom] As directed Process Instructions: If no progress note charted, please enter Clinical details in comments. Scheduling Instructions: Questions: My question or request is: s/p AVR/CABG. Cardiac rehab at [facility]. Referral to Home Health [REF34 Custom] As directed Process Instructions: If no progress note charted, please enter Clinical details in comments. Scheduling Instructions: Comments: Please evaluate Karlos Garcia for admission to Home Health. [address] Phone Number: Date of : 1960 Inpatient DOCUMENTATION FOR VNA SERVICES (INCLUDING THOSE PATIENTS WITH MEDICARE COVERAGE REQUIRING HOME VNA SERVICES AND/OR HOSPICE SERVICES) PATIENT'S LOCATION: Karlos Garcia [address] TIKI.VN [phone] Dump Worker's Name: self/family In discussion with the attending physician, it is certified that this patient is under their care and that they, or a Nurse Practitioner, or Physician Pad Extractor Tender who is working directly with them, hada [...] for services as follows: HOME HEALTH AGENCY: [facility] [address] [place] [address] RN orders: Cardiopulmonary assessment, incisional assessment, assess [...] issues please call the Cardiology Office at [phone] FOR MEDICARE ONLY: (please delete this section [...] APRN [address] / [place] [address] . All VNA agencies which cover the area of patient's residence have been reviewed, either verbally or in writing, and patient/family have chosen the home health care agency noted. Questions: Disciplines Requested: Nursing Physical Therapy Arrangements for VNA/home care: As above. Signed: NEFTALI MENON PA-C [facility] Section of Cardiac [facility] [place] [facility] [address] FAX [phone] Date: 02/24/2024 CC: Aparna Jordan, MAURI Jordan, Aparna Sherman APRN [address] [place] [address] documented in this encounter Discharge Instructions * [...] Hayder Graham and/or the Cardiac Surgery Physician Pad Extractor Tender Team may be reached at . Antibiotic [...] Please refer to the card with the [place] Heart [employer] Guidelines for more information. You [...] Dr. Hayder Graham. You may use a [place] Track or treadmill but avoid any pulling [...] friends, go to a movie, go to taoism, etc. Heavy activities: No hunting, skiing, jogging, [...] should resume a low fat, low cholesterol, [place] Heart [employer] Diet. Driving: No driving until [...] while being managed by your PCP and/or Parts Person. For future medication refills, please refer to your PCP and/or Parts Person after your discharge from our service. Thank you REMOVE CHEST TUBE SUTURES ON OR AFTER 03/02/24 Home oxygen therapy: N/A Follow up appointments: You should follow up with your PCP, Aparna Jordan APRN, in 1-2 weeks. Our office will schedule an appointment with your Parts Person, Neftali Ernandez MD , in 2 weeks. You have an appointment with your Cardiac Surgeon, Dr. Hayder Graham, 4 weeks with a chest x-ray, EKG, and Echo before your appointment. Cardiac Rehabilitation: Karlos Garcia was seen regarding participation in the outpatient Phase 2Cardiac Rehabilitation at [facility]. The patient agrees to a [...] on the weekends please page [phone]. * Eric Barahona PA - 02/23/2024 9:27 [...] 0600 and on the weekends please page [phone]. * Tiffanie Owens - 02/22/2024 2:48 PM [...] d/c for 10 days. 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 * Kelley Hinson, SURVEILLANCE AGENT - 02/21/2024 10:15 AM EDT Physical Therapy [...] d/c for 10 days. 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 * Kelley Hinson PTA - 02/20/2024 3:32 PM EDT 02/20/24 8187 Evaluation & Treatment Document Type contact Total Minutes, Physical Therapy 0 Comment, Session Not Performed Checked in w/ pt this PM for ongoing PT services, pt politely declined, stating he had been dealing w/ nausea all day, made plan to see him tomorrow morning, will f/u at that time Kelley Hinson PTA Pager: [phone] Physical Therapy Inpatient Rehab Department * Louisa [...] 0600 and on the weekends please page [phone]. * Maris Benavides, PT - 02/19/2024 11:22 [...] d/c for 10 days. 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 Precautions/Special Considerations: STERNAL [...] pt's functional performance as outlined inthis evaluation. AMRIS BENAVIDES, PT Pager: [phone] Physical Therapy Inpatient Rehabilitation Department Time IN / OUT: 4602-7882 Total Time: 38 (eval) minutes; * Antonio [...] 0600 and on the weekends please page [phone]. * Minnie Begum PA - 02/18/2024 8:25 [...] 0600 and on the weekends please page [phone]. * Kim Ha RCP - 02/17/2024 2:25 [...] plan since last visit. Hayder Graham MD [phone] Source Note - Hayder Graham MD - [...] insufficiency. He has glaucoma. He used to [employer] until about 15 years ago. He has [...] given written informed consent. Hayder Graham MD [phone] * Hayder Graham MD - 02/17/2024 7:00 [...] given written informed consent. Hayder Graham MD [phone] documented in this encounter Miscellaneous Notes * [...] for follow-up Home Health & Hospice, [address] [place] [address] Cardiac Rehab, [address] [place] [address] Transportation: family or friend will provide Functional status prior to admission: Independent Home Environment: Others in the home: alone. Current Living Arrangements: home/apartment/condo. Accessibility Concerns:a few steps to enter 1 floor home. Current Functional Ability: Assistive Person and Equipment DME used at home: none DME Needed at Discharge: N/A Patient is insured through: Primary Insurance: [facility] Payor: [facility] / Plan: [place] P[place] / Product Type: *No Product type* [...] pain managed with scheduled Tylenol. Worked with [facility]. Ambulated in the roque multiple times during [...] anticipated Patient is insured through: Primary Insurance: [employer] Payor: [employer] / Plan: [place] PPO / Product Type: *No Product type* / Secondary Insurance: N/A Last Physical Therapy Recommendation: home with home health (Str coming to stay for a week or two upon d/c) with to be determined (owns rolling walker, shower seat) Plan for discharge is: Home w/ Services Outpatient Agency/Support Group Needs: Homecare agency Home Health Services: Physical Therapy, Registered Nurse Agency Referrals: [facility]. [address] [place] [address] Transportation: family or friend will provide Barriers to discharge: Discharge planning Plan going forward: Service Care Management will continue to follow and assist with discharge planning and coordination of care as indicated. Anticipated Date of Discharge: 02/22/2024 Rhett Bell RN RN/CM - Cellphone: [phone] Pager: [phone] Covering Service RN/CM * Plan of Care [...] Yang RN - 02/19/2024 10:44 AM EDT [facility] CARDIAC REHABILITATION Karlos Garcia was seen today regarding participation in the outpatient Phase 2 Cardiac Rehabilitation at [facility]. The patient agrees to a [...] surrogate would be surrogate decision maker per [place] surrogate decision making law. (Only good for 180 days) Any patient receiving care in [place] must abide by [place] law. The hierarchy for surrogate decision making [...] steady place to sleep or slept in [facility] (including now)?: No In the past 12 months has the [employer], gas, oil, or water [employer] threatened to shut off services in your [...] confirmed as: [address] [facility] [address] Physical address: [address] [facility], [address] Social & Family Supports: All names listed [...] Information: none noted Health/Prescription Coverage: Primary Insurance: [facility] Payor: [facility] / Plan: [place] PPO / Product Type: *No Product type* / Secondary Insurance: N/A ; Prescription Coverage: Yes Preferred Pharmacy: [id number] [address] Status: Patient is a : No Primary Care Provider confirmed: Aparna Jordan, COMBER FIXER [phone] Patient/Caregiver Goals of Treatment: dc to home Potential Needs for Transition of Care: home health care Agency Referrals: I have met with the patient to: discuss discharge planning needs. provide the [facility], Office of Care Management letter from the Car Salesman pertaining to rehab referrals. provide a letter describing our affiliations within the [facility] and educate about their right to choose where referrals are sent. provide a list of Home Health Agencies / Durable Medical Equipment vendors which serve their preferred geographic area. provided patient with [facility] Star Quality Rating handout. They have requested referrals to: [facility] [address] [place] [address] Note routed to a Certified Technician Specialist who will communicate referrals to facilities [...] Reina Greene RN CM, BSN, CMGT- Ext [phone] * Plan of Care - Binta Trinidad [...] Operative Note Patient Name: Karlos Garcia : [id number] MR#: [id number] Case Date: 02/17/2024 Surgeon: Surgeon(s) and Role: * Hayder Graham MD - Primary * Neftali Menon PA - Physician Pad Extractor Tender Preoperative diagnosis: CAD Postoperative diagnosis: CAD, intraoperative [...] mL Drains: Mediastinal and Left pleural Disposition: [facility] Condition: doing well without problems Attestation: Case Date: 02/17/2024 I performed this procedure without the involvement of a resident. HAYDER GRAHAM MD 02/17/2024 * Op Note - Hayder Graham MD - 02/17/2024 8:20 AM EDT [facility] Operative Note Patient Name: Karlos Garcia : [id number] MR#: [id number] Case Date: 02/17/2024 Surgeon: Surgeons and Role: * Hayder Graham MD - Primary * Neftali Menon PA - Physician Pad Extractor Tender Preoperative diagnosis: CAD Postoperative diagnosis: CAD, intraoperative [...] mL Drains: Mediastinal and Left pleural Disposition: [facility] Procedure Description: The patient was brought [...] PM EST Office Visit Cardiology at [address] [place] [address] Neftali Ernandez MD [facility] [place] [address] Scheduled Orders Name Type Priority Associated Diagnoses [...] Aortic Valve Open W Cardiopulmonary Bypass Homogrf/Stent (78806) Yes 02/17/2024 7:28 AM EDT CAD Cabg, Artery-Vein, Two (95756) Yes 02/17/2024 7:28 AM EDT CAD Cabg, Arterial, Single (53543) Yes 02/17/2024 7:28 AM EDT CAD Endoscopy W/Video-Asst Vein [place], Cabg (26642) Yes 02/17/2024 7:28 AM EDT CAD POCT GLUCOSE Routine 02/17/2024 6:38 AM EDT TRANSESOPHAGEAL ECHOCARDIOGRAM IN THE OR Routine 02/17/2024 6:33 AM EDT Aortic valve stenosis, etiology of cardiac valve disease unspecified LAB SCAN 02/17/2024 12:00 AM EDT IMPLANTABLE DEVICES SCAN 02/17/2024 12:00 AM EDT documented in this encounter Results * Potassium (02/24/2024 4:42 AM EDT) Potassium 4.0 3.5 - 5.0 mmol/L [facility] [...] Lab Hayder Graham MD CHEMISTRY ORDERABLE S [facility] [place] [address] * (ABNORMAL) Basic Metabolic Panel (non-fasting) (02/23/2024 4:24 AM EDT) Glucose 117 65 - 199 mg/dL [facility] Comment:Diabetes: >=200 mg/d L plus symptoms Blood Urea Nitrogen 18 10 - 20 mg/dL [facility] Creatinine 0.71(L) 0.80 - 1.50 mg/dL [facility] Sodium 138 135 - 145 mmol/L [facility] Potassium 4.4 3.5 - 5.0 mmol/L [facility] Comment: Please note: ??Patients with WBC >100,000 may have falsely elevated Potassium levels. ??For accurate Potassium quantification in these patients send serum separator tube (gold top) for subsequent determinations. ??Contact the Clinical Chemistry Laboratory if there are any questions. Chloride 101 98 - 107 mmol/L [facility] Carbon Dioxide 26 22 - 31 mmol/L [facility] Anion Gap 11 5 - 15 mmol/L [facility] Calcium 8.8 8.5 - 10.5 mg/dL [facility] Est Glomerular Filtration Rate 102 >=60 mL/min/1. 73 m?? [facility] [...] In Lab Romeo Carpio MD CHEMISTRY ORDERABLES [facility] [place] [address] * Potassium (02/22/2024 4:30 AM EDT) Potassium 3.5 3.5 - 5.0 mmol/L [facility] [...] Lab Hayder Graham MD CHEMISTRY ORDERABLE S [facility] [place] [address] * (ABNORMAL) Basic Metabolic Panel (non-fasting) (02/21/2024 9:45 AM EDT) Glucose 123 65 - 199 mg/dL [facility] Comment:Diabetes: >=200 mg/d L plus symptoms Blood Urea Nitrogen 22(H) 10 - 20 mg/dL [facility] Creatinine 0.78(L) 0.80 - 1.50 mg/dL [facility] Sodium 140 135 - 145 mmol/L [facility] Potassium 3.9 3.5 - 5.0 mmol/L [facility] Comment: Please note: ??Patients with WBC >100,000 may have falsely elevated Potassium levels. ??For accurate Potassium quantification in these patients send serum separator tube (gold top) for subsequent determinations. ??Contact the Clinical Chemistry Laboratory if there are any questions. Chloride 100 98 - 107 mmol/L [facility] Carbon Dioxide Not Perf 22 - 31 [facility] Comment:Add-on request. Samp le too old to perform test. Anion Gap Unable to Calculate 5 - 15 mmol/L [facility] Calcium 8.6 8.5 - 10.5 mg/dL [facility] Est Glomerular Filtration Rate 100 >=60 mL/min/1 .73 m?? [facility] Comment: This patient's [...] Carpio MD CHEMISTRY ORDERABLES Performing Organization Address City/[facility]/ZIP Co de Phone Number [facility] [place] [address] * Lactate, whole blood, send to lab ([facility]) (02/21/2024 9:45 AM EDT) [facility] Lactate WB 2.0 0.5 - 2.2 mmol/L [facility] Blood 02/21/2024 9:45 AM EDT 02/21/2024 9:52 AM EDT Narrative Resulting Agency Comment Spec In Lab Hayder Graham MD CHEMISTRY ORDERABLE S Performing Organization Address City/[facility]/ZIP Co de Phone Number [facility] [place] [address] * (ABNORMAL) Hepatic Function Panel (02/21/2024 9:45 AM EDT) [facility] Protein, Total 5.7(L) 6.1 - 8.0 g/dL [facility] Albumin 3.3 3.2 - 5.2 g/dL [facility] Aspartate Aminotransferase 13 0 - 39 unit/L [facility] Alanine Aminotransferase 16 0 - 55 unit/L [facility] Alkaline Phosphatase 63 40 - 130 unit/L [facility] Bilirubin, Total 0.6 0.2 - 1.3 mg/dL [facility] Bilirubin, Direct 0.2 0.0 - 0.3 mg/dL [facility] Blood 02/21/2024 9:45 AM EDT 02/21/2024 9:52 AM EDT Narrative Resulting Agency Comment Spec In Lab Hayder Graham MD CHEMISTRY ORDERABLE S Performing Organization Address City/[facility]/ZIP Co de Phone Number [facility] [place] [address] * Lipase (02/21/2024 9:45 AM EDT) Lipase 56 0 - 60 unit/L [facility] Blood 02/21/2024 9:45 AM EDT 02/21/2024 9:52 AM EDT Narrative Resulting Agency Comment Spec In Lab Hayder Graham MD CHEMISTRY ORDERABLE S Performing Organization Address [facility] Co de Phone Number [facility] [place] [address] * Amylase (02/21/2024 9:45 AM EDT) Amylase 69 28 - 100 unit/L [facility] Blood 02/21/2024 9:45 AM EDT 02/21/2024 9:52 AM EDT Narrative Resulting Agency Comment Spec In Lab Hayder Graham MD CHEMISTRY ORDERABLE S Performing Organization Address [facility] Co de Phone Number [facility] [place] [address] * Potassium (02/21/2024 3:08 AM EDT) Potassium 3.8 3.5 - 5.0 mmol/L [facility] [...] Lab Hayder Graham MD CHEMISTRY ORDERABLE S [facility] [place] [address] * XR Chest PA & Lateral (Generic) (02/20/2024 10:19 AM EDT) WORKSTATION ID [id number] RAD Anatomical Region Laterality Modality Chest N/A Digital Radiogra phy Impressions 02/20/2024 1:11 PM EDT Small pleural effusions. No pneumothorax Thank you for letting us participate in the care of this patient. ??If you are a health care provider and have any questions regarding this report, please contact the number below. ??For patients who have questions please contact the health career coach that requested your imaging first. ? Electronically signed by: Rogerio Cruz MD, [facility] ??([phone]), at 02/20/2024 1:11 PM Narrative 02/20/2024 1:11 PM EDT EXAMINATION: XR CHEST PA AND LATERAL (GENERIC) CLINICAL HISTORY: s/p AVR/CABGx3 TECHNIQUE: PA and lateral views of the chest COMPARISON: 02/17/2024 FINDINGS: Support devices: Interval removal of [place]-Kaila catheter, endotracheal tube and mediastinal chest tubes The cardiac silhouette is stable status post median sternotomy, CABG and aortic valve replacement. There are small pleural effusions. No pneumothorax. Procedure Note Rogerio Cruz MD - 02/20/2024 EXAMINATION: XR CHEST PA AND LATERAL (GENERIC) CLINICAL HISTORY: s/p AVR/CABGx3 TECHNIQUE: PA and lateral views of the chest COMPARISON: 02/17/2024 FINDINGS: Support devices: Interval removal of [place]-Kaila catheter, endotracheal tubeand mediastinal chest tubes The [...] who have questions please contactthe health career coach that requested your imaging first. Hayder Graham MD IMG DX ORDERABLES * Scan, Peripheral Blood (02/20/2024 4:23 AM EDT) Pathologist [facility] Plat estimate Decreased [facility] RBC Morphology Normal [facility] Blood 02/20/2024 4:23 AM EDT 02/20/2024 4:42 AM EDT Narrative Resulting Agency Comment Spec In Lab Minnie FRENCH HEMATOLOGY CECILIO ALEMAN Performing Organization Address City/State/[facility] Co de Phone Number [facility] [place] [address] * (ABNORMAL) Differential, Automated (02/20/2024 4:23 AM EDT) [facility] Neutrophil % 81.7 % [facility] Neutrophil Absolute 10.37(H) 1.70 - 6.10 x10(3)/mc L [facility] Lymph % 7.4 % [facility] Lymphocytes Abs 0.9 0.9 - 3.2 x10(3)/mc L [facility] Monocyte % 9.7 % [facility] Monocyte Abs 1.2(H) 0.3 - 0.9 x10(3)/mc L [facility] Eos % 0.1 % [facility] Eosinophils Abs 0.0 0.0 - 0.4 x10(3)/[facility] Basophil % 0.2 % [facility] Baso Absolute 0.0 0.0 - 0.1 x10(3)/[facility] Immature Gran % 0.90 % [facility] Comment: Immature granulocytes(IG's)percentage and absolute count will include metamyelocytes, myelocytes, and promyelocytes. Blood smears from CBCs yielding IG's will be scanned manually for concordance. If this scan disagrees with the automated IG or if promyelocytes are noted, a manual differential will be performed. Immature Gran Absolute 0.12(H) 0.00 - 0.04 x10(3)/[facility] Blood 02/20/2024 4:23 AM EDT 02/20/2024 4:42 AM EDT Narrative Resulting Agency Comment Spec In Lab Minnie FRENCH HEMATOLOGY CECILIO ALEMAN [facility] [place] [address] * (ABNORMAL) Hemogram (02/20/2024 4:23 AM EDT) White Blood Cell 12.7(H) 4.0 - 9.5 x10(3)/[facility] Red Blood Cell 4.26(L) 4.58 - 5.54 x10(6)/[facility] Hemoglobin 12.3(L) 13.7 - 16.5 g/dL [facility] Hematocrit 37.1(L) 40.5 - 48.5 % [facility] Mean Cell Volume 87.1 82.9 - 93.1 fL [facility] Mean Cell Hemoglobin 28.9 27.5 - 32.1 pg [facility] Mean Cell Hemoglobin Concentration 33.2 32.0 - 35.7 g/dL [facility] Platelet 88(L) 145 - 357 x10(3)/mc L [facility] RDW Standard Deviation 43.5 36.0 - 45.0 fL [facility] RDW coefficient of variation 13.7 11.4 - 13.8 % [facility] Mean Platelet Volume 10.2 7.6 - 12.9 fL [facility] NRBC% auto 0.0 % [facility] NRBC Absolute 0.000 0.000 - 0.000 x10(3)/mc L [facility] Blood 02/20/2024 4:23 AM EDT 02/20/2024 4:42 AM EDT Narrative Resulting Agency Comment Spec In Lab Minnie FRENCH HEMATOLOGY CECILIO ALEMAN [facility] [place] [address] * (ABNORMAL) Basic Metabolic Panel (non-fasting) (02/20/2024 4:23 AM EDT) Glucose 113 65 - 199 mg/dL [facility] Comment:Diabetes: >=200 mg/d L plus symptoms Blood Urea Nitrogen 20 10 - 20 mg/dL [facility] Comment:result rechecked-[place] Creatinine 0.71(L) 0.80 - 1.50 mg/dL [facility] Sodium 135 135 - 145 mmol/L [facility] Potassium 3.9 3.5 - 5.0 mmol/L [facility] Comment: Please note: ??Patients with WBC >100,000 may have falsely elevated Potassium levels. ??For accurate Potassium quantification in these patients send serum separator tube (gold top) for subsequent determinations. ??Contact the Clinical Chemistry Laboratory if there are any questions. Chloride 102 98 - 107 mmol/L [facility] Carbon Dioxide 25 22 - 31 mmol/L [facility] Anion Gap 8 5 - 15 mmol/L [facility] Calcium 8.7 8.5 - 10.5 mg/dL [facility] Comment:result rechecked-[place] Est Glomerular Filtration Rate 102 >=60 mL/min/1. 73 m?? [facility] [...] ORDERABLE S Performing Organization Address [facility] Co de Phone Number [facility] [place] [address] * Potassium (02/19/2024 3:57 AM EDT) [facility] Potassium 4.3 3.5 - 5.0 mmol/L [facility] [...] ORDERABLE S Performing Organization Address [facility]/ZIP Co de Phone Number [facility] [place] [address] * POCT Glucose (02/18/2024 8:24 AM EDT) Glucose, POC 157 65 - 199 mg/dL [facility] Comment: Supplemental ranges: <140 mg/dL before meals <180 mg/dL all other times of the day Blood 02/18/2024 8:24 AM EDT 02/18/2024 8:24 AM EDT Hayder Graham MD POINT OF CARE TEST ORDERABLES Performing Organization Address City/[facility]/ZIP Co de Phone Number [facility] [place] [address] * Scan, Peripheral Blood (02/18/2024 1:40 AM EDT) [facility] Plat estimate Decreased [facility] RBC Morphology Normal [facility] Blood 02/18/2024 1:40 AM EDT 02/18/2024 1:56 AM EDT Narrative Resulting Agency Comment Spec In Lab Neftali FRENCH HEMATOLOGY ORDER OLE Performing Organization Address City/[facility]/ZIP Co de Phone Number [facility] [place] [address] * (ABNORMAL) Differential, Automated (02/18/2024 1:40 AM EDT) [facility] Neutrophil % 87.1 % [facility] Neutrophil Absolute 15.03(H) 1.70 - 6.10 x10(3)/mc L [facility] Lymph % 3.0 % [facility] Lymphocytes Abs 0.5(L) 0.9 - 3.2 x10(3)/mc L [facility] Monocyte % 9.1 % [facility] Monocyte Abs 1.6(H) 0.3 - 0.9 x10(3)/mc L [facility] Eos % 0.0 % [facility] Eosinophils Abs 0.0 0.0 - 0.4 x10(3)/mc L [facility] Basophil % 0.2 % [facility] Baso Absolute 0.0 0.0 - 0.1 x10(3)/mc L [facility] Immature Gran % 0.60 % [facility] Comment: Immature granulocytes(IG's)percentage and absolute count will include metamyelocytes, myelocytes, and promyelocytes. Blood smears from CBCs yielding IG's will be scanned manually for concordance. If this scan disagrees with the automated IG or if promyelocytes are noted, a manual differential will be performed. Immature Gran Absolute 0.10(H) 0.00 - 0.04 x10(3)/ L [facility] Blood 02/18/2024 1:40 AM EDT 02/18/2024 1:56 AM EDT Narrative Resulting Agency Comment Spec In Lab Neftali FRENCH HEMATOLOGY ORDER OLE [facility] [place] [address] * (ABNORMAL) Hemogram (02/18/2024 1:40 AM EDT) White Blood Cell 17.2(H) 4.0 - 9.5 x10(3)/ L [facility] Red Blood Cell 4.71 4.58 - 5.54 x10(6)/mc L [facility] Hemoglobin 13.7 13.7 - 16.5 g/dL [facility] Hematocrit 39.2(L) 40.5 - 48.5 % [facility] Mean Cell Volume 83.2 82.9 - 93.1 fL [facility] Mean Cell Hemoglobin 29.1 27.5 - 32.1 pg [facility] Mean Cell Hemoglobin Concentration 34.9 32.0 - 35.7 g/dL [facility] Platelet 147 145 - 357 x10(3)/mc L [facility] RDW Standard Deviation 39.9 36.0 - 45.0 fL [facility] RDW coefficient of variation 13.2 11.4 - 13.8 % [facility] Mean Platelet Volume 9.9 7.6 - 12.9 fL [facility] NRBC% auto 0.0 % [facility] NRBC Absolute 0.000 0.000 - 0.000 x10(3)/mc L [facility] Blood 02/18/2024 1:40 AM EDT 02/18/2024 1:56 AM EDT Narrative Resulting Agency Comment Spec In Lab Neftali FRENCH HEMATOLOGY ORDER OLE [facility] [place] [address] * (ABNORMAL) Basic Metabolic Panel (non-fasting) (02/18/2024 1:40 AM EDT) Glucose 176 65 - 199 mg/dL [facility] Comment:Diabetes: >=200 mg/d L plus symptoms Blood Urea Nitrogen 10 10 - 20 mg/dL [facility] Creatinine 0.65(L) 0.80 - 1.50 mg/dL [facility] Sodium 135 135 - 145 mmol/L [facility] Potassium 4.2 3.5 - 5.0 mmol/L [facility] Comment: Please note: ??Patients with WBC >100,000 may have falsely elevated Potassium levels. ??For accurate Potassium quantification in these patients send serum separator tube (gold top) for subsequent determinations. ??Contact the Clinical Chemistry Laboratory if there are any questions. Chloride 106 98 - 107 mmol/L [facility] Carbon Dioxide 20(L) 22 - 31 mmol/L [facility] Anion Gap 9 5 - 15 mmol/L [facility] Calcium 7.6(L) 8.5 - 10.5 mg/dL [facility] Est Glomerular Filtration Rate 105 >=60 mL/min/1. 73 m?? [facility] [...] Lab Hayder Graham MD CHEMISTRY ORDERABLE S [facility] [place] [address] * (ABNORMAL) Troponin (02/18/2024 1:40 AM EDT) Troponin-T, High Sensitivity 342(H) <=22 ng/L [facility] Comment: This patient's troponin T [...] can be found in the [facility] Laboratory Test Catalog Troponin - [facility] Test Catalog Reference: Fourth [place] Definition of Myocardial Infarction. Journal of the [place] [employer] 2018;72:9186-8785 Blood 02/18/2024 1:40 AM EDT 02/18/2024 1:56 AM EDT Narrative Resulting Agency Comment Spec In Lab Hayder Graham MD CHEMISTRY ORDERABLE S [facility] [place] [address] * POCT Glucose (02/17/2024 8:13 PM EDT) Glucose, POC 142 65 - 199 mg/dL [facility] Comment: Supplemental ranges: <140 mg/dL before meals <180 mg/dL all other times of the day Blood 02/17/2024 8:13 PM EDT 02/17/2024 8:13 PM EDT Hayder Graham MD POINT OF CARE TEST ORDERABLES Performing Organization Address [facility]/ZIP Co de Phone Number [facility] [place] [address] * POCT Glucose (02/17/2024 5:42 PM EDT) Glucose, POC 160 65 - 199 mg/dL [facility] Comment: Supplemental ranges: <140 mg/dL before meals <180 mg/dL all other times of the day Blood 02/17/2024 5:42 PM EDT 02/17/2024 5:42 PM EDT Hayder Graham MD POINT OF CARE TEST ORDERABLES Performing Organization Address City/[facility]/ZIP Co de Phone Number [facility] [place] [address] * Hemoglobin (02/17/2024 5:42 PM EDT) Hemoglobin 13.7 13.7 - 16.5 g/dL [facility] Blood 02/17/2024 5:42 PM EDT 02/17/2024 6:10 PM EDT Narrative Resulting Agency Comment Spec In Lab Hayder Graham MD HEMATOLOGY ORDERABL ES Performing Organization Address [facility] Co de Phone Number [facility] [place] [address] * Potassium (02/17/2024 5:42 PM EDT) Potassium 4.3 3.5 - 5.0 mmol/L [facility] [...] ORDERABLE S Performing Organization Address [facility] de Phone Number [facility] [place] [address] * (ABNORMAL) BLOOD GAS 2 ARTERIAL (02/17/2024 4:18 PM EDT) pH, Arterial 7.34(L) 7.35 - 7.45 [facility] PCO2, Arterial 40 35 - 45 mmHg [facility] PO2, Arterial 78(L) 85 - 104 mmHg [facility] Bicarbonate, Arterial 20.8 20.0 - 26.0 mmol/L [facility] Base Excess, Arterial -5.1(L) -3.0 - 3.0 mmol/L [facility] Hgb Blood Gas 14.6 13.7 - 16.5 g/dL [facility] Oxyhemoglobin, Arterial 93.0(L) 94.0 - 97.0 % [facility] Carboxyhemoglob in, Arterial 0.3 % [facility] Comment: Nonsmokers: 0.5-1.5% COHB Smokers: Variable, but usually less than 10% Toxic: 20-30% COHB Lethal: Greater than 60% COHB Methemoglobin, Arterial 0.8 <=1.5 % [facility] Na Whole Blood 136 135 - 145 mmol/L [facility] K Whole Blood 4.1 3.5 - 5.0 mmol/L [facility] Comment: Please note: Patients with WBC >100,000 may have falsely elevated Potassium levels. Contact the Clinical Chemistry Laboratory if there are any questions. ICa Whole Blood 1.10(L) 1.15 - 1.33 mmol/L [facility] Comment: Note: ??Total bilirubin higher than 20 mg/dL may lead to falsely low ionized calcium. CL Whole Blood 105 98 - 107 mmol/L [facility] Gluc Whole Bld 159 65 - 199 mg/dL [facility] Comment:Diabetes: >=200 mg/d L plus symptoms. Lactate WB 1.2 0.5 - 2.2 mmol/L [facility] FIO2 Art 40 % [facility] PF Ratio Art 195 [facility] Blood 02/17/2024 4:18 PM EDT 02/17/2024 4:18 PM EDT Hayder Graham MD POINT OF CARE TEST ORDERABLES Performing Organization Address City/State/[facility] Co de Phone Number [facility] [place] [address] * XR Chest One View (02/17/2024 1:44 PM EDT) WORKSTATION ID [id number] RAD Anatomical Region Laterality Modality Chest N/A Digital Radiogra phy Impressions 02/17/2024 2:12 PM EDT 1. ??No definite pleural fluid collection or pneumothorax. 2. ??Right IJ [place]-Kaila catheter tip terminates in a descending branch [...] have questions please contact the health career coach that requested your imaging first. ? Electronically signed by: Denzel Hankins MD, [facility] ??([phone]), at 02/17/2024 2:12 PM Narrative 02/17/2024 2:12 PM EDT EXAMINATION: XR CHEST ONE VIEW CLINICAL HISTORY: s/p avr/cabg eval effusions TECHNIQUE: 1 view of the chest COMPARISON: Chest x-ray 01/09/2024, chest CT 02/03/2024 FINDINGS: ET tube tip terminates 5.2 cm above the carlos. Right IJ [place]-Kaila catheter tip terminates in a descending branch [...] 5.2 cm above the carlos. Right IJ [place]-Ganzcatheter tip terminates in a descending branch of [...] fluid collection or pneumothorax. 2. Right IJ [place]-Kaila catheter tip terminates in a descending branch ofthe right pulmonary artery. Suggest catheter retraction. 3. Additional support lines and tubes as above. Thank you for letting us participate in the care of this patient. If youare a health care provider and have any questions regarding this report,please contact the number below. For patients who have questions please contactthe health career coach that requested your imaging first. Electronically signed by: Denzel Hankins MD, [facility]([phone]), at 02/17/2024 2:12 PM Hayder Graham MD IMG DX ORDERABLES * (ABNORMAL) BLOOD GAS 2 ARTERIAL (02/17/2024 1:31 PM EDT) pH, Arterial 7.35 7.35 - 7.45 [facility] PCO2, Arterial 39 35 - 45 mmHg [facility] PO2, Arterial 320(H) 85 - 104 mmHg [facility] Bicarbonate, Arterial 21.4 20.0 - 26.0 mmol/L [facility] Base Excess, Arterial -4.2(L) -3.0 - 3.0 mmol/L [facility] Hgb Blood Gas 14.1 13.7 - 16.5 g/dL [facility] Oxyhemoglobin, Arterial 97.9(H) 94.0 - 97.0 % [facility] Carboxyhemoglob in, Arterial 0.3 % [facility] Comment: Nonsmokers: 0.5-1.5% COHB Smokers: Variable, but usually less than 10% Toxic: 20-30% COHB Lethal: Greater than 60% COHB Methemoglobin, Arterial 0.7 <=1.5 % [facility] Na Whole Blood 137 135 - 145 mmol/L [facility] K Whole Blood 4.2 3.5 - 5.0 mmol/L [facility] Comment: Please note: Patients with WBC >100,000 may have falsely elevated Potassium levels. Contact the Clinical Chemistry Laboratory if there are any questions. ICa Whole Blood 1.13(L) 1.15 - 1.33 mmol/L [facility] Comment: Note: ??Total bilirubin higher than 20 mg/dL may lead to falsely low ionized calcium. CL Whole Blood 108(H) 98 - 107 mmol/L [facility] Gluc Whole Bld 136 65 - 199 mg/dL [facility] Comment:Diabetes: >=200 mg/d L plus symptoms. Lactate WB 1.1 0.5 - 2.2 mmol/L [facility] FIO2 Art 100 % [facility] PF Ratio Art 320 [facility] Blood 02/17/2024 1:31 PM EDT 02/17/2024 1:31 PM EDT Hayder Graham MD POINT OF CARE TEST ORDERABLES Performing Organization Address City/State/[facility] Co de Phone Number [facility] [place] [address] * (ABNORMAL) Coox2 (02/17/2024 1:21 PM EDT) pO2, Coox 44 mmHg [facility] Hgb Blood Gas 13.1(L) 13.7 - 16.5 g/dL [facility] Oxyhemoglobin, Coox 76.4 % [facility] Carboxyhemoglo bin, Coox 0.3 % [facility] Comment: Nonsmokers: 0.5-1.5% COHB Smokers: Variable, but usually less than 10% Toxic: 20-30% COHB Lethal: Greater than 60% COHB Methemoglobin, Coox 0.8 <=1.5 % [facility] Source Coox Mixed Venous [facility] Blood 02/17/2024 1:21 PM EDT 02/17/2024 1:21 PM EDT Hayder Graham MD POINT OF CARE TEST ORDERABLES [facility] [place] [address] * (ABNORMAL) BLOOD GAS 2 ARTERIAL (02/17/2024 12:14 PM EDT) pH, Arterial 7.39 7.35 - 7.45 [facility] PCO2, Arterial 40 35 - 45 mmHg [facility] PO2, Arterial 338(H) 85 - 104 mmHg [facility] Bicarbonate, Arterial 23.7 20.0 - 26.0 mmol/L [facility] Base Excess, Arterial -1.3 -3.0 - 3.0 mmol/L [facility] Hgb Blood Gas 11.0(L) 13.7 - 16.5 g/dL [facility] Oxyhemoglobin, Arterial 98.8(H) 94.0 - 97.0 % [facility] Carboxyhemoglob in, Arterial 0.3 % [facility] Comment: Nonsmokers: 0.5-1.5% COHB Smokers: Variable, but usually less than 10% Toxic: 20-30% COHB Lethal: Greater than 60% COHB Methemoglobin, Arterial 0.3 <=1.5 % [facility] Na Whole Blood 135 135 - 145 mmol/L [facility] K Whole Blood 5.1(H) 3.5 - 5.0 mmol/L [facility] Comment: Please note: Patients with WBC >100,000 may have falsely elevated Potassium levels. Contact the Clinical Chemistry Laboratory if there are any questions. ICa Whole Blood 1.13(L) 1.15 - 1.33 mmol/L [facility] Comment: Note: ??Total bilirubin higher than 20 mg/dL may lead to falsely low ionized calcium. CL Whole Blood 106 98 - 107 mmol/L [facility] Gluc Whole Bld 132 65 - 199 mg/dL [facility] Comment:Diabetes: >=200 mg/d L plus symptoms. Lactate WB 1.4 0.5 - 2.2 mmol/L [facility] Blood 02/17/2024 12:1 4 PM EDT 02/17/2024 12:14 PM EDT Hayder Graham MD POINT OF CARE TEST ORDERABLES Performing Organization Address [facility] de Phone Number [facility] [place] [address] * (ABNORMAL) Fibrinogen (02/17/2024 12:10 PM EDT) Fibrinogen 154(L) 200 - 393 mg/dL [facility] Comment: OR Result called [...] ORDERABLE S Performing Organization Address [facility] Co de Phone Number [facility] [place] [address] * (ABNORMAL) Thrombin time (02/17/2024 12:10 PM EDT) Thrombin Time 18(H) 10 - 17 sec [facility] Comment: OR Result called [...] ORDERABLE S Performing Organization Address [facility] de Phone Number [facility] [place] [address] * APTT (02/17/2024 12:10 PM EDT) Partial Thromboplastin Time 33 25 - 37 sec [facility] Comment: OR Result called [...] ORDERABLE S Performing Organization Address [facility] de Phone Number [facility] [place] [address] * (ABNORMAL) Prothrombin Time (02/17/2024 12:10 PM EDT) Prothrombin Time 16.7(H) 9.4 - 12.5 sec [facility] Comment: OR Result called by ?? LOMARL OR Results read back by: ? alondra pagan at 2024-02-17 12:41:48 International Normalization Ratio 1.5 [facility] Comment: OR Result [...] Lab Tara York MD HEMATOLOGY ORDERABLE S [facility] [place] [address] * (ABNORMAL) Hemogram (02/17/2024 12:10 PM EDT) White Blood Cell 11.1(H) 4.0 - 9.5 x10(3)/mc L [facility] Red Blood Cell 3.50(L) 4.58 - 5.54 x10(6)/mc L [facility] Hemoglobin 10.4(L) 13.7 - 16.5 g/dL [facility] Hematocrit 30.2(L) 40.5 - 48.5 % [facility] Comment: This result has been called to ALONDRA PAGAN by Eddie López on 02 17 2024 at 1226, and has been read back. Mean Cell Volume 86.3 82.9 - 93.1 fL [facility] Mean Cell Hemoglobin 29.7 27.5 - 32.1 pg [facility] Mean Cell Hemoglobin Concentration 34.4 32.0 - 35.7 g/dL [facility] Platelet 118(L) 145 - 357 x10(3)/mc L [facility] RDW Standard Deviation 40.2 36.0 - 45.0 fL [facility] RDW coefficient of variation 12.8 11.4 - 13.8 % [facility] Mean Platelet Volume 9.5 7.6 - 12.9 fL [facility] NRBC% auto 0.0 % [facility] NRBC Absolute 0.000 0.000 - 0.000 x10(3)/mc L [facility] Blood 02/17/2024 12:1 0 PM EDT 02/17/2024 12:19 PM EDT Narrative Resulting Agency Comment Spec In Lab Tara York MD HEMATOLOGY ORDERABLE S [facility] [place] [address] * (ABNORMAL) BLOOD GAS 2 ARTERIAL (02/17/2024 11:43 AM EDT) pH, Arterial 7.38 7.35 - 7.45 [facility] PCO2, Arterial 40 35 - 45 mmHg [facility] PO2, Arterial 304(H) 85 - 104 mmHg [facility] Bicarbonate, Arterial 23.2 20.0 - 26.0 mmol/L [facility] Base Excess, Arterial -1.9 -3.0 - 3.0 mmol/L [facility] Hgb Blood Gas 11.1(L) 13.7 - 16.5 g/dL [facility] Oxyhemoglobin, Arterial 98.6(H) 94.0 - 97.0 % [facility] Carboxyhemoglob in, Arterial 0.3 % [facility] Comment: Nonsmokers: 0.5-1.5% COHB Smokers: Variable, but usually less than 10% Toxic: 20-30% COHB Lethal: Greater than 60% COHB Methemoglobin, Arterial 0.3 <=1.5 % [facility] Na Whole Blood 133(L) 135 - 145 mmol/L [facility] K Whole Blood 6.2(Critic al) 3.5 - 5.0 mmol/L [facility] Comment: Noted by brass instrument repair technician. Please note: Patients with WBC >100,000 may have falsely elevated Potassium levels. Contact the Clinical Chemistry Laboratory if there are any questions. ICa Whole Blood 0.97(L) 1.15 - 1.33 mmol/L [facility] Comment: Note: ??Total bilirubin higher than 20 mg/dL may lead to falsely low ionized calcium. CL Whole Blood 104 98 - 107 mmol/L [facility] Gluc Whole Bld 128 65 - 199 mg/dL [facility] Comment:Diabetes: >=200 mg/d L plus symptoms. Lactate WB 1.1 0.5 - 2.2 mmol/L [facility] Blood 02/17/2024 11:4 3 AM EDT 02/17/2024 11:43 AM EDT Hayder Graham MD POINT OF CARE TEST ORDERABLES [facility] [place] [address] * (ABNORMAL) BLOOD GAS 2 ARTERIAL (02/17/2024 11:08 AM EDT) pH, Arterial 7.38 7.35 - 7.45 [facility] PCO2, Arterial 38 35 - 45 mmHg [facility] PO2, Arterial 334(H) 85 - 104 mmHg [facility] Bicarbonate, Arterial 22.0 20.0 - 26.0 mmol/L [facility] Base Excess, Arterial -3.2(L) -3.0 - 3.0 mmol/L [facility] Hgb Blood Gas 10.8(L) 13.7 - 16.5 g/dL [facility] Oxyhemoglobin, Arterial 98.7(H) 94.0 - 97.0 % [facility] Carboxyhemoglob in, Arterial 0.3 % [facility] Comment: Nonsmokers: 0.5-1.5% COHB Smokers: Variable, but usually less than 10% Toxic: 20-30% COHB Lethal: Greater than 60% COHB Methemoglobin, Arterial 0.3 <=1.5 % [facility] Na Whole Blood 131(L) 135 - 145 mmol/L [facility] K Whole Blood 6.4(Critic al) 3.5 - 5.0 mmol/L [facility] Comment: Noted by brass instrument repair technician. Please note: Patients with WBC >100,000 may have falsely elevated Potassium levels. Contact the Clinical Chemistry Laboratory if there are any questions. ICa Whole Blood 0.98(L) 1.15 - 1.33 mmol/L [facility] Comment: Note: ??Total bilirubin higher than 20 mg/dL may lead to falsely low ionized calcium. CL Whole Blood 104 98 - 107 mmol/L [facility] Gluc Whole Bld 127 65 - 199 mg/dL [facility] Comment:Diabetes: >=200 mg/d L plus symptoms. Lactate WB 1.0 0.5 - 2.2 mmol/L [facility] Blood 02/17/2024 11:0 8 AM EDT 02/17/2024 11:08 AM EDT Hayder Graham MD POINT OF CARE TEST ORDERABLES Performing Organization Address City/[facility]/[place] [address] * (ABNORMAL) Hemoglobin and Hematocrit, blood (02/17/2024 11:04 AM EDT) Hemoglobin 9.6(L) 13.7 - 16.5 g/dL [facility] Hematocrit 28.0(L) 40.5 - 48.5 % [facility] Comment: This result has been called to ALONDRA PAGAN by Eddie López on 02 17 2024 at 1120, and has been read back. Blood 02/17/2024 11:0 4 AM EDT 02/17/2024 11:12 AM EDT Narrative Resulting Agency Comment Spec In Lab Hayder Graham MD HEMATOLOGY ORDERABL ES [facility] [place] [address] * (ABNORMAL) Platelet count (02/17/2024 11:04 AM EDT) Platelet 106(L) 145 - 357 x10(3)/mc L [facility] Immature Plt % 1.6 0.0 - 7.4 % [facility] Comment: Limitation of the Immature Platelet Fraction (IPF)-May be less reliable when the platelet count is less than 54w784/uL due to statistical imprecision. The IPF value [...] in a decreased state of production. References: [employer] The Clinical Value of the Immature Platelet Fraction (IPF) in Cell Recovery Document Number [id number] 03/2011 [employer] The Role of the Immature Platelet Fraction (IPF) in the Differential Diagnosis of Thrombocytopenia, Document [id number] V002/15/14 P014 Blood 02/17/2024 11:0 4 AM EDT 02/17/2024 11:12 AM EDT Narrative Resulting Agency Comment Spec In Lab Hayder Graham MD HEMATOLOGY ORDERABL ES [facility] [place] [address] * (ABNORMAL) Fibrinogen (02/17/2024 11:04 AM EDT) Pathologist [facility] Fibrinogen 149(L) 200 - 393 mg/dL [facility] Comment: OR Result called by ?? SALVLT OR Results read back by: ? Alondra Pagan at 2024-02-17 11:30:47 A fibrinogen level >100 mg/dL is adequate for hemostasis in most patients without underlying bleeding disorders. Blood 02/17/2024 11:0 4 AM EDT 02/17/2024 11:12 AM EDT Narrative Resulting Agency Comment Spec In Lab Hayder Graham MD HEMATOLOGY ORDERABL ES [facility] [place] [address] * (ABNORMAL) BLOOD GAS 2 ARTERIAL (02/17/2024 10:41 AM EDT) pH, Arterial 7.37 7.35 - 7.45 [facility] PCO2, Arterial 44 35 - 45 mmHg [facility] PO2, Arterial 335(H) 85 - 104 mmHg [facility] Bicarbonate, Arterial 24.9 20.0 - 26.0 mmol/L [facility] Base Excess, Arterial -0.4 -3.0 - 3.0 mmol/L [facility] Hgb Blood Gas 11.5(L) 13.7 - 16.5 g/dL [facility] Oxyhemoglobin, Arterial 98.9(H) 94.0 - 97.0 % [facility] Carboxyhemoglob in, Arterial 0.1 % [facility] Comment: Nonsmokers: 0.5-1.5% COHB Smokers: Variable, but usually less than 10% Toxic: 20-30% COHB Lethal: Greater than 60% COHB Methemoglobin, Arterial 0.3 <=1.5 % [facility] Na Whole Blood 132(L) 135 - 145 mmol/L [facility] K Whole Blood 5.9(H) 3.5 - 5.0 mmol/L [facility] Comment: Please note: Patients with WBC >100,000 may have falsely elevated Potassium levels. Contact the Clinical Chemistry Laboratory if there are any questions. ICa Whole Blood 1.02(L) 1.15 - 1.33 mmol/L [facility] Comment: Note: ??Total bilirubin higher than 20 mg/dL may lead to falsely low ionized calcium. CL Whole Blood 104 98 - 107 mmol/L [facility] Gluc Whole Bld 129 65 - 199 mg/dL [facility] Comment:Diabetes: >=200 mg/d L plus symptoms. Lactate WB 1.1 0.5 - 2.2 mmol/L [facility] Blood 02/17/2024 10:4 1 AM EDT 02/17/2024 10:41 AM EDT Hayder Graham MD POINT OF CARE TEST ORDERABLES Performing Organization Address City/State/[facility] Co de Phone Number [facility] [place] [address] * (ABNORMAL) BLOOD GAS 2 ARTERIAL (02/17/2024 10:06 AM EDT) pH, Arterial 7.38 7.35 - 7.45 [facility] PCO2, Arterial 42 35 - 45 mmHg [facility] PO2, Arterial 329(H) 85 - 104 mmHg [facility] Bicarbonate, Arterial 24.7 20.0 - 26.0 mmol/L [facility] Base Excess, Arterial -0.3 -3.0 - 3.0 mmol/L [facility] Hgb Blood Gas 11.0(L) 13.7 - 16.5 g/dL [facility] Oxyhemoglobin, Arterial 99.0(H) 94.0 - 97.0 % [facility] Carboxyhemoglob in, Arterial 0.3 % [facility] Comment: Nonsmokers: 0.5-1.5% COHB Smokers: Variable, but usually less than 10% Toxic: 20-30% COHB Lethal: Greater than 60% COHB Methemoglobin, Arterial 0.3 <=1.5 % [facility] Na Whole Blood 132(L) 135 - 145 mmol/L [facility] K Whole Blood 6.0(H) 3.5 - 5.0 mmol/L [facility] Comment: Please note: Patients with WBC >100,000 may have falsely elevated Potassium levels. Contact the Clinical Chemistry Laboratory if there are any questions. ICa Whole Blood 0.97(L) 1.15 - 1.33 mmol/L [facility] Comment: Note: ??Total bilirubin higher than 20 mg/dL may lead to falsely low ionized calcium. CL Whole Blood 102 98 - 107 mmol/L [facility] Gluc Whole Bld 123 65 - 199 mg/dL [facility] Comment:Diabetes: >=200 mg/d L plus symptoms. Lactate WB 1.1 0.5 - 2.2 mmol/L [facility] Blood 02/17/2024 10:0 6 AM EDT 02/17/2024 10:06 AM EDT Hayder Graham MD POINT OF CARE TEST ORDERABLES Performing Organization Address City/State/[facility] Co de Phone Number [facility] [place] [place] [address] * Surgical Pathology Report (02/17/2024 10:01 AM EDT) Final Diagnosis [id number] ? Location: [facility]; [facility]; The signing pathologist has (i) examined the relevant preparation(s) for the specimen(s) and (ii) rendered or confirmed the diagnosis(es). . ?Surgical Pathology DIAGNOSIS Aortic valve leaflets, excision: Valve leaflets with myxoid degeneration, nodular fibrosis and dystrophic calcifications. Electronically signed by: ?Livier Montoya MD Verified: ??02/24/2024 13:49 ??Pathologist Performed at: ??-[facility] Dept. of Pathology, [place] [address] Car Salesman: Job Brewer MD, FCAP, ??CLIA Certificate: [id number] SPECIMEN(S) SUBMITTED A - Aortic Valve Leaflets, [...] Sections Processing Blocks submitted for decalcification: A1. Inspector Aligning sections in 1 cassette labeled A1. ??ajw 02/24/2024 1:49 PM EDT [facility] AORTIC STRUCTURE / Unknown 02/17/2024 10:01 AM EDT 02/17/2024 10:01 AM EDT Hayder Graham MD PATHOLOGY/CYTOLOGY ORDERABLES Performing Organization Address City/[facility]/ZIP Co de Phone Number [facility] [place] [address] * Specimen to Pathology (02/17/2024 10:01 AM EDT) AP Specimen 02/17/2024 10:0 1 AM EDT 02/17/2024 10:01 AM EDT Narrative [facility] - 02/17/2024 10:01 AM EDT Specimen requisition ordered. ??Separate Pathology report to follow Hayder Graham MD PATHOLOGY/CYTOLOGY ORDERABLES Performing Organization Address [facility]/ZIP Co de Phone Number [facility] [place] [address] * (ABNORMAL) BLOOD GAS 2 ARTERIAL (02/17/2024 9:35 AM EDT) pH, Arterial 7.33(L) 7.35 - 7.45 [facility] PCO2, Arterial 35 35 - 45 mmHg [facility] PO2, Arterial 318(H) 85 - 104 mmHg [facility] Bicarbonate, Arterial 17.9(L) 20.0 - 26.0 mmol/L [facility] Base Excess, Arterial -8.0(L) -3.0 - 3.0 mmol/L [facility] Hgb Blood Gas 11.0(L) 13.7 - 16.5 g/dL [facility] Oxyhemoglobin, Arterial 98.8(H) 94.0 - 97.0 % [facility] Carboxyhemoglob in, Arterial 0.3 % [facility] Comment: Nonsmokers: 0.5-1.5% COHB Smokers: Variable, but usually less than 10% Toxic: 20-30% COHB Lethal: Greater than 60% COHB Methemoglobin, Arterial 0.3 <=1.5 % [facility] Na Whole Blood 131(L) 135 - 145 mmol/L [facility] K Whole Blood 5.8(H) 3.5 - 5.0 mmol/L [facility] Comment: Please note: Patients with WBC >100,000 may have falsely elevated Potassium levels. Contact the Clinical Chemistry Laboratory if there are any questions. ICa Whole Blood 0.98(L) 1.15 - 1.33 mmol/L [facility] Comment: Note: ??Total bilirubin higher than 20 mg/dL may lead to falsely low ionized calcium. CL Whole Blood 101 98 - 107 mmol/L [facility] Gluc Whole Bld 122 65 - 199 mg/dL [facility] Comment:Diabetes: >=200 mg/d L plus symptoms. Lactate WB 0.8 0.5 - 2.2 mmol/L [facility] Blood 02/17/2024 9:35 AM EDT 02/17/2024 9:35 AM EDT Hayder Graham MD POINT OF CARE TEST ORDERABLES [facility] [place] [address] * (ABNORMAL) BLOOD GAS 2 VENOUS (02/17/2024 9:34 AM EDT) pH, Venous 7.22(Criti marquez) 7.32 - 7.42 [facility] Comment:Noted by brass instrument repair technician. PCO2, Venous 43 41 - 51 mmHg [facility] Comment:Noted by brass instrument repair technician. PO2, Venous 57(H) 25 - 40 mmHg [facility] Comment:Noted by brass instrument repair technician. Bicarbonate, Venous 17.1 mmol/L [facility] Comment:Noted by brass instrument repair technician. Base Excess, Venous -10.6 mmol/L [facility] Comment:Noted by brass instrument repair technician. Hgb Blood Gas 11.2(L) 13.7 - 16.5 g/dL [facility] Comment:Noted by brass instrument repair technician. Oxyhemoglobin, Venous 86.5 % [facility] Comment:Noted by brass instrument repair technician. Carboxyhemoglob in, Venous 0.3 % [facility] Comment: Noted by brass instrument repair technician. Nonsmokers: 0.5-1.5% COHB Smokers: Variable, but usually less than 10% Toxic: 20-30% COHB Lethal: Greater than 60% COHB Methemoglobin, Venous 0.0 <=1.5 % [facility] Comment:Noted by brass instrument repair technician. Na Whole Blood 156(H) 135 - 145 mmol/L [facility] Comment:Noted by brass instrument repair technician. K Whole Blood 5.5(H) 3.5 - 5.0 mmol/L [facility] Comment: Noted by brass instrument repair technician. Please note: Patients with WBC >100,000 may have falsely elevated Potassium levels. Contact the Clinical Chemistry Laboratory if there are any questions. ICa Whole Blood 1.03(L) 1.15 - 1.33 mmol/L [facility] Comment: Noted by brass instrument repair technician. Note: ??Total bilirubin higher than 20 mg/dL may lead to falsely low ionized calcium. CL Whole Blood 100 98 - 107 mmol/L [facility] Comment:Noted by brass instrument repair technician. Gluc Whole Bld 132 65 - 199 mg/dL [facility] Comment: Noted by brass instrument repair technician. Diabetes: >=200 mg/dL plus symptoms Lactate WB 1.0 0.5 - 2.2 mmol/L [facility] Comment:Noted by brass instrument repair technician. Blood Gas Source Venous [facility] Blood 02/17/2024 9:34 AM EDT 02/17/2024 9:34 AM EDT Hayder Graham MD POINT OF CARE TEST ORDERABLES [facility] [place] [address] * (ABNORMAL) BLOOD GAS 2 ARTERIAL (02/17/2024 8:07 AM EDT) pH, Arterial 7.43 7.35 - 7.45 [facility] PCO2, Arterial 34(L) 35 - 45 mmHg [facility] PO2, Arterial 581(H) 85 - 104 mmHg [facility] Bicarbonate, Arterial 21.7 20.0 - 26.0 mmol/L [facility] Base Excess, Arterial -2.6 -3.0 - 3.0 mmol/L [facility] Hgb Blood Gas 14.5 13.7 - 16.5 g/dL [facility] Oxyhemoglobin, Arterial 99.0(H) 94.0 - 97.0 % [facility] Carboxyhemoglob in, Arterial 0.4 % [facility] Comment: Nonsmokers: 0.5-1.5% COHB Smokers: Variable, but usually less than 10% Toxic: 20-30% COHB Lethal: Greater than 60% COHB Methemoglobin, Arterial 0.3 <=1.5 % [facility] Na Whole Blood 139 135 - 145 mmol/L [facility] K Whole Blood 4.0 3.5 - 5.0 mmol/L [facility] Comment: Please note: Patients with WBC >100,000 may have falsely elevated Potassium levels. Contact the Clinical Chemistry Laboratory if there are any questions. ICa Whole Blood 1.09(L) 1.15 - 1.33 mmol/L [facility] Comment: Note: ??Total bilirubin higher than 20 mg/dL may lead to falsely low ionized calcium. CL Whole Blood 106 98 - 107 mmol/L [facility] Gluc Whole Bld 100 65 - 199 mg/dL [facility] Comment:Diabetes: >=200 mg/d L plus symptoms. Lactate WB 1.3 0.5 - 2.2 mmol/L [facility] Blood 02/17/2024 8:07 AM EDT 02/17/2024 8:07 AM EDT Hayder Graham MD POINT OF CARE TEST ORDERABLES Performing Organization Address [facility] Co de Phone Number [facility] [place] [place] [address] * POCT Glucose (02/17/2024 6:38 AM EDT) Glucose, POC 98 65 - 199 mg/dL [facility] Comment: Supplemental ranges: <140 mg/dL before meals <180 mg/dL all other times of the day Blood 02/17/2024 6:38 AM EDT 02/17/2024 6:38 AM EDT Hayder Graham MD POINT OF CARE TEST ORDERABLES Performing Organization Address [facility] Co de Phone Number [facility] [place] [place] [address] * Transesophageal Echo/OR (02/17/2024 6:33 AM EDT) [...] [facility] and post-operative evaluation of cardiac function [...] dose on Sat02/17/24 at 1400, Until Discontinued, [place] teeth and / or gums. Scan the CHG vial in the [employer] Q-Care Oral Care Kit from floor stock. Ventilator-associated pneumonia prophylaxis For use in ICU/Critical care locations ONLY. Obtain kit from Floor Stock location. Scan CHG vial in the [employer] Q-Care Oral Care Kit, Routine Given 02/17/2024 [...] at 50% of previous rate. Call warehouse representative if goal not achieved at maximum rate. [...] PHENYLephrine and/or vasopressin ineffective. Call pager # [phone] if initiated. Titrate to keep systolic blood [...] L/min/M2. Maximum volume 2 L. Call warehouse representative for additional fluid orders: pager #[phone]. Rate/Dose Verify 02/18/2024 8:00 AM EDT 1 mL/hr 1 mL/hr Rate/Dose Verify 02/18/2024 6:00 AM EDT 1 mL/hr 1 mL/hr Rate/Dose Verify 02/18/2024 4:00 AM EDT 1 mL/hr 1 mL/hr sodium chloride 0.9% infusion 10-30 mL/hr, Intravenous, DAILY PRN, Starting on Sat02/17/24 at 1307, Until Sat02/18/24 at 0835, Side port TKO rate, per [facility] nursing protocol. Rate/Dose Verify 02/17/2024 8:00 PM EDT 30 mL/hr 30 mL/hr Rate/Dose Verify 02/17/2024 6:00 PM EDT 30 mL/hr 30 mL/h r Rate/Dose Verify 02/17/2024 5:00 PM EDT 30 mL/hr 30 mL/h r sodium chloride 0.9% infusion 10-30 mL/hr, Intravenous, DAILY PRN, Starting on Sat02/17/24 at 1307, Until Sat02/18/24 at 0835, Side port TKO rate, per [facility] nrusing protocol. Rate/Dose Verify 02/18/2024 8:00 [...] Routine documented in this encounter Care Teams Speech Language Pathologist Relationship Specialty Start Date End Date Aparna Jordan APRN PCP - General Family Medicine 10/21/23 05/26/24 documented as of this encounter
--- OUTSIDE RECORDS SUMMARY | 2024-06-29 08:03 | XMS_ITS | Encounter Summary ---
Author Organization [facility] [place] [address] Care Team Providers Care Microfilm Processor Name Role Phone Vanessa Christian MAURI Primary Care Provider [phone] Encounter Details Date Type Department Care Team (Latest Contact Info) Description 05/27/2024 Travel Social History Tobacco Use Types Packs/Day Years Used Date Smoking Tobacco: Former Cigarettes Smokeless Tobacco: Never Comments:Quit 15 + years ago Alcohol Use Standard Drinks/Week Comments Yes 0 (1 standard drink = 0.6 oz pur e alcohol) rare [facility] Utilities Answer Date Recorded In the past [...] PM EST Office Visit Cardiology at [address] [address] Neftali Ernandez MD [facility] [place] [address] documented as of this encounter Visit Diagnoses Not on filedocumented in this encounter Care Teams Microfilm Processor Relationship Specialty Start Date End Date Vanessa Christian APRN [address] [place] [address] PCP - General Family Medicine 05/27/24 documented as of this encounter
--- OUTSIDE RECORDS SUMMARY | 2024-06-29 08:03 | XMS_ITS | Clinical Summary ---
Author Organization [facility] Address [facility] [place] [address] Care Team Providers Care Class A Regional Drivers Name Role Phone Vanessa Christian Lane DOTSON Primary Care Provider [phone] Allergies No known active allergies Medications Medication [...] of face 09/26/2023 05/27/2024 Overview (09/26/2023): Right advent Chest pressure 08/14/2023 10/21/2023 SILVA (dyspnea on exertion) 08/14/2023 HLD (hyperlipidemia) 08/14/2023 024 Encounters Date Type Department Care Team Description 05/27/2024 11:00 AM EDT Office Visit Cardiology at [address] [place] [address] Neftali Ernandez MD ASCVD (arteriosclerotic cardiovascular disease); Nonrheumatic aortic valve stenosis 05/27/2024 Travel 05/20/2024 Travel from Last 3 Months Social History Tobacco Use Types Packs/Day Years Used Date Smoking Tobacco: Former Cigarettes Smokeless Tobacco: Never Comments:Quit 15 + years ago Alcohol Use Standard Drinks/Week Comments Yes 0 (1 standard drink = 0.6 oz pur e alcohol) rare [facility] Utilities Answer Date Recorded In [...] PM EST Office Visit Cardiology at [address] [place] [address] Neftali Ernandez MD [facility] [place] [address] Health Maintenance Due Date Last [...] series) 06/07/2024 Medical Devices Implanted Type Area International Trade Specialist Device Identifier Shelf Expiration Date Model / Serial / Lot Cable,Cut,Edg ,Blnt,Ss,3tpr ([id number]) - [id number] Implanted:Qty : 1 on 02/17/2024 by Zak Farmer MD at [facility] IMPLANTS Midline: Chest [employer] - [id number] 09/02/2028 [id number] / / [id number] Valve Coronary Aortic 23mm Tissue Trnscath Biop[employer] Inspiris ([id number]) ([employer]) - [id number] Implanted:Qty : 1 on 02/17/2024 by Zak Farmer MD at [facility] IMPLANTS Heart [employer] - TSAI LI 09/15/2027 [id number] / [id number] / Procedures Procedure Name Priority Date/Time Associated [...] (Bezet) 367 ms MUSE SYSTEM Calculated P [place] 12 degrees MUSE SYSTEM Calculated R [place] 27 degrees MUSE SYSTEM Calculated T [place] 62 degrees MUSE SYSTEM INTERPRETATION Sinus bradycardia with 1st degree A-V block Otherwise normal ECG When compared with ECG of 12-MAR-2024 14:35, T wave inversion no longer evident in Anterior leads Confirmed by MD Ernandez Daniel ([id number]) on 06/01/2024 8:36:17 AM MUSE SYSTEM 05/27/2024 [...] decision made by: Patient Care Teams Class A Regional Drivers Relationship Specialty Start Date End Date Vanessa Christian, [employer] [address] [place] [address] PCP - General Family Medicine 05/27/24
--- OUTSIDE RECORDS SUMMARY | 2024-06-29 08:03 | XMS_ITS | Encounter Summary ---
Author Organization [facility] Address [facility] [place] [address] Care Team Providers Care Shipping Services Sales Representative Name Role Phone Gino Vanessa Lane DOTSON Primary Care Provider [phone] Encounter Details Date Type Department Care Team (Late st Contact Info) Description 02/24/2024 Orders Only Cardiac Surgery [facility] [place] [phone] Trudi Lester APRN [facility] [place] [address] Social History Tobacco Use Types Packs/Day Years Used Date Smoking Tobacco: Former Cigarettes Smokeless Tobacco: Never Comments:Quit 15 + years ago Alcohol Use Standard Drinks/Week Comments Yes 0 (1 standard drink = 0.6 oz pur e alcohol) rare [facility] Utilities Answer Date Recorded In the past 12 months has e [employer], gas, oil, or water [employer] threatened to shut off services in your [...] PM EST Office Visit Cardiology at [address] [place] [address] Neftali Ernandez MD [facility] [address] documented as of this encounter Visit Diagnoses Not on filedocumented in this encounter Care Teams Shipping Services Sales Representative Relationship Specialty Start Date End Date Vanessa Christian APRN PCP - General Family Medicine 10/21/23 05/26/24 documented as of this encounter
--- OUTSIDE RECORDS SUMMARY | 2024-06-29 08:04 | XMS_ITS | Encounter Summary ---
Author Organization [facility] [place] [address] Care Team Providers Care Import And Export Clerk Name Role Phone Vanessa Christian MAURI Primary Care Provider [phone] Encounter Details Date Type Department Care Team (Late st Contact Info) Description 01/10/2024 [place] [phone] Lawson Napoles PA [facility] [place] [place] [address] Screening for cardiovascular condition; Aortic valve stenosis, [...] PM EST Office Visit Cardiology at [address] [place] [phone] Neftali Ernandez MD [facility] [place] [address] documented as of this encounter Visit Diagnoses Diagnosis Screening for cardiovascular condition Screening for other and unspecified cardiovascular conditions Aortic valve stenosis, etiology of cardiac valve disease unspecified documented in this encounter Care Teams Import And Export Clerk Relationship Specialty Start Date End Date Vanessa Christian APRN PCP - General Family Medicine 10/21/23 05/26/24 documented as of this encounter
--- OUTSIDE RECORDS SUMMARY | 2024-06-29 08:04 | XMS_ITS | Encounter Summary ---
Author Organization [facility] [place] [address] Care Team Providers Care Energy Director Name Role Phone Vanessa Christian MAURI Primary Care Provider [phone] Encounter Details Date Type Department Care Team (Latest Contact Info) Description 01/09/2024 3:00 PM EDT Laboratory [place] [phone] Nonrheumatic aortic valve stenosis Social History Tobacco [...] PM EST Office Visit Cardiology at [address] [phone] Neftali Ernandez MD [facility] [place] [address] documented as of this encounter Procedures Procedure Name Priority Date/Time Associated Diagnosis Comments ABORH RECHECK STATUS Routine 01/09/2024 2:58 PM EDT HEMOGRAM Routine 01/09/2024 2:58 PM EDT Nonrheumatic aortic valve stenosis DIFFERENTIAL, AUTOMATED Routine 01/09/2024 2:58 PM EDT Nonrheumatic aortic valve stenosis TYPE AND SCREEN, SDP (FUTURE SURGERY, [facility] SAME [facility] ONLY) Routine 01/09/2024 2:58 [...] PM EDT) ABORH Recheck Order Order Placed [facility] ABORH Type Recheck Completed [facility] Blood 01/09/2024 2:58 PM EDT 01/09/2024 3:08 PM EDT Narrative Resulting Agency Comment Spec In Lab Zak Farmer MD BLOOD BANK LAB CECILIO ALEMAN [facility] [place] [address] * Differential, Automated (01/09/2024 2:58 PM EDT) Neutrophil % 70.5 % [facility] Neutrophil Absolute 4.34 1.70 - 6.10 x10(3)/[facility] Lymph % 18.9 % [facility] Lymphocytes Abs 1.2 0.9 - 3.2 x10(3)/[facility] Monocyte % 8.0 % [facility] Monocyte Abs 0.5 0.3 - 0.9 x10(3)/[facility]OR[facility] Eos % 1.6 % [facility] Eosinophils Abs 0.1 0.0 - 0.4 x10(3)/[facility]OR[facility]ORY Basophil % 0.5 % [facility] Baso Absolute 0.0 0.0 - 0.1 x10(3)/[facility] LABORATORY Immature Gran % 0.50 % [facility] Comment: Immature granulocytes(IG's)percentage and absolute count will include metamyelocytes, myelocytes, and promyelocytes. Blood smears from CBCs yielding IG's will be scanned manually for concordance. If this scan disagrees with the automated IG or if promyelocytes are noted, a manual differential will be performed. Immature Gran Absolute 0.03 0.00 - 0.04 x10(3)/[facility] Blood 01/09/2024 2:58 PM EDT 01/09/2024 3:03 PM EDT Narrative Resulting Agency Comment Spec In Lab Zak Farmer MD HEMATOLOGY ORDERABL ES [facility] [place] [address] * Hemogram (01/09/2024 2:58 PM EDT) White Blood Cell 6.2 4.0 - 9.5 x10(3)/[facility] LABORATORY Red Blood Cell 5.53 4.58 - 5.54 x10(6)/[facility] Hemoglobin 16.1 13.7 - 16.5 g/dL [facility] Hematocrit 46.9 40.5 - 48.5 % [facility] Mean Cell Volume 84.8 82.9 - 93.1 fL [facility] Mean Cell Hemoglobin 29.1 27.5 - 32.1 pg [facility] Mean Cell Hemoglobin Concentration 34.3 32.0 - 35.7 g/dL [facility] Platelet 187 145 - 357 x10(3)/[facility]ORATORY RDW Standard Deviation 39.2 36.0 - 45.0 fL [facility] RDW coefficient of variation 12.6 11.4 - 13.8 % [facility] Mean Platelet Volume 9.5 7.6 - 12.9 fL [facility] NRBC% auto 0.0 % [facility] NRBC Absolute 0.000 0.000 - 0.000 x10(3)/[facility] Blood 01/09/2024 2:58 PM EDT 01/09/2024 3:03 PM EDT Narrative Resulting Agency Comment Spec In Lab Zak Farmer MD HEMATOLOGY ORDERABL ES [facility] [place] [address] * Basic Metabolic Panel (non-fasting) (01/09/2024 2:58 PM EDT) Glucose 102 65 - 199 mg/dL [facility] Comment:Diabetes: >=200 mg/d L plus symptoms Blood Urea Nitrogen 15 10 - 20 mg/dL [facility] Creatinine 0.94 0.80 - 1.50 mg/dL [facility] Sodium 137 135 - 145 mmol/L [facility] Potassium 4.5 3.5 - 5.0 mmol/L [facility] Comment: Please note: ??Patients with WBC >100,000 may have falsely elevated Potassium levels. ??For accurate Potassium quantification in these patients send serum separator tube (gold top) for subsequent determinations. ??Contact the Clinical Chemistry Laboratory if there are any questions. Chloride 103 98 - 107 mmol/L [facility] Carbon Dioxide 27 22 - 31 mmol/L [facility] Anion Gap 7 5 - 15 mmol/L [facility] Calcium 9.5 8.5 - 10.5 mg/dL [facility] Est Glomerular Filtration Rate 91 >=60 mL/min/1. 73 m?? [facility] [...] CHEMISTRY ORDERABLE S [facility] [place] [address] * Hepatic Function Panel (01/09/2024 2:58 PM EDT) Protein, Total 6.7 6.1 - 8.0 g/dL [facility] Albumin 4.5 3.2 - 5.2 g/dL [facility] Aspartate Aminotransferase 21 0 - 39 unit/L [facility] Alanine Aminotransferase 21 0 - 55 unit/L [facility] Alkaline Phosphatase 81 40 - 130 unit/L [facility] Bilirubin, Total 0.7 0.2 - 1.3 mg/dL [facility] Bilirubin, Direct 0.2 0.0 - 0.3 mg/dL [facility] Blood 01/09/2024 2:58 PM EDT 01/09/2024 3:03 PM EDT Narrative Resulting Agency Comment Spec In Lab Zak Farmer MD CHEMISTRY ORDERABLE S Performing Organization Address [facility] Co de Phone Number [facility] [place] [address] * Prothrombin Time (01/09/2024 2:58 PM EDT) Prothrombin Time 10.6 9.4 - 12.5 sec [facility] International Normalization Ratio 0.9 [facility] Comment: An INR <2.0 [...] ORDERABL ES Performing Organization Address [facility] Co de Phone Number [facility] [place] [address] * Type and Screen Future Surgery, [facility] SAME [facility] PRO[facility] ONLY) (01/09/2024 2:58 PM EDT) ABORH Type O NEGATIVE [facility] Patient BB History Not Found [facility] Expires at [id number] on: 02-20-2024 [facility] Ab Screen Interp Negative [facility] Blood 01/09/2024 2:58 PM EDT 01/09/2024 2:58 PM EDT Narrative Resulting Agency Comment Spec In Lab Zak Farmer MD BLOOD BANK LAB ORDE RABLES Performing Organization Address City/[facility]/[place] [address] documented in this encounter Visit Diagnoses Diagnosis Nonrheumatic aortic valve stenosis Aortic valve disorders documented in this encounter Care Teams Energy Director Relationship Specialty Start Date End Date Vanessa Christian APRN PCP - General Family Medicine 10/21/23 05/26/24 documented as of this encounter
--- OUTSIDE RECORDS SUMMARY | 2024-06-29 08:04 | XMS_ITS | Encounter Summary ---
Author Organization [facility] [place] [address] Care Team Providers Care Bartender Server Name Role Phone Vanessa Christian Lane DOTSON Primary Care Provider [phone] Reason for Referral * Diagnostic Test (Routine) - Closed Specialty Diagnoses / Procedures Referred By Contac t Referred To Contact Radiology Diagnoses Nonrheumatic aortic valve stenosis Procedures CT Chest wo Contrast (Generic) Louisa Cho PA [facility] [place] [address] [facility] [place] [address] Referral ID Status Reason Start Date Expiration Date V isits Requested Visits Authorized [id number] Closed Specialty Service Requested 01/10/2024 07/11/2025 1 1 Reason for Visit * Diagnostic Test (Routine) - Closed Specialty Diagnoses / Procedures Referred By Contac t Referred To Contact Radiology Diagnoses Nonrheumatic aortic valve stenosis Procedures CT Chest wo Contrast (Generic) Louisa Cho PA [facility] [place] [address] [facility] [place] [address] Referral ID Status Reason Start Date Expiration Date V isits Requested Visits Authorized [id number] Closed Specialty Service Requested 01/10/2024 07/11/2025 1 1 Encounter Details Date Type Department Care Team (Latest Contact Info) Description 02/03/2024 7:36 AM EDT - 02/03/2024 8:05 AM EDT Hospital Encounter CT Scan at [facility] [place] [address] Zak Farmer MD [facility] [place] [address] Nonrheumatic aortic valve stenosis Discharge Disposition: Home Social History Tobacco Use Types Packs/Day Years Used Date Smoking Tobacco: Former Cigarettes Smokeless Tobacco: Never Comments:Quit 15 + years ago Alcohol Use Standard Drinks/Week Comments Yes 0 (1 standard drink = 0.6 oz pur e alcohol) rare [facility] Inpatient Questions Answer Date Recorded [...] PM EST Office Visit Cardiology at [address] [place] [address] Neftali Ernandez MD [facility] [place] [address] documented as of this encounter Procedures Procedure Name Priority Date/Time Associated Diagnosis Comments CT CHEST WO CONTRAST (GENERIC) Routine 02/03/2024 7:44 AM EDT Nonrheumatic aortic valve stenosis documented in this encounter Results * CT Chest wo Contrast (Generic) (02/03/2024 7:44 AM EDT) [employer] WORKSTATION ID [id number] DH RAD Anatomical Region Laterality Modality Chest [...] have questions please contact the health care attendant that requested your imaging first. ? Narrative [...] nodule along the minor fissure (series [id number]) and a 8 mm right lower lobe [...] who have questions please contactthe health care attendant that requested your imaging first. Zak Farmer MD IMG CT ORDERABLES documented in this encounter Visit Diagnoses Diagnosis Nonrheumatic aortic valve stenosis Aortic valve disorders documented in this encounter Care Teams Bartender Server Relationship Specialty Start Date End Date Vanessa Christian APRN PCP - General Family Medicine 10/21/23 05/26/24 documented as of this encounter
--- OUTSIDE RECORDS SUMMARY | 2024-06-29 08:04 | XMS_ITS | Encounter Summary ---
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 ( defers to Card Surg d/t age) Neftali Ernandez MD [facility] [place] [address] Zak Farmer MD [facility] CARDIOTHORACIC [place] [address] Referral ID Status Reason Start Date Expiration Date V isits Requested Visits Authorized [id number] Closed Consult, Test & Treat 10/21/2023 10/20/2024 1 1 Encounter Details Date Type Department Care Team (Late st Contact Info) Description 01/09/2024 1:40 PM EDT Office [place] [address] Zak Farmer MD [facility] CARDIOTHORACIC [place] [address] Nonrheumatic aortic valve stenosis Social [...] office. Best personal regards, Zak Farmer MD [phone] In aggregate 55 minutes were spent evaluating [...] PM EST Office Visit Cardiology at [address] [place] [phone] Neftali Ernandez MD [facility] [place] [address] documented as of this encounter Results * [...] who have questions please contact the health restorative care technician that requested your imaging first. [...] patients who have questions please contactthe health restorative care technician that requested your imaging first. Zak Farmer MD IMG DX ORDERABLES * Basic Metabolic Panel (non-fasting) (01/09/2024 2:58 PM EDT) Glucose 102 65 - 199 mg/dL [facility] Comment:Diabetes: >=200 mg/d L plus symptoms Blood Urea Nitrogen 15 10 - 20 mg/dL [facility] Creatinine 0.94 0.80 - 1.50 mg/dL [facility] Sodium 137 135 - 145 mmol/L [facility] Potassium 4.5 3.5 - 5.0 mmol/L [facility] Comment: Please note: ??Patients with WBC >100,000 may have falsely elevated Potassium levels. ??For accurate Potassium quantification in these patients send serum separator tube (gold top) for subsequent determinations. ??Contact the Clinical Chemistry Laboratory if there are any questions. Chloride 103 98 - 107 mmol/L [facility] Carbon Dioxide 27 22 - 31 mmol/L [facility] Anion Gap 7 5 - 15 mmol/L [facility] Calcium 9.5 8.5 - 10.5 mg/dL [facility] Est Glomerular Filtration Rate 91 >=60 mL/min/1. 73 m?? [facility] [...] ORDERABLE S [facility] [place] [address] * Hepatic Function Panel (01/09/2024 2:58 PM EDT) Pathologist [facility] Protein, Total 6.7 6.1 - 8.0 g/dL [facility] Albumin 4.5 3.2 - 5.2 g/dL [facility] Aspartate Aminotransferase 21 0 - 39 unit/L [facility] Alanine Aminotransferase 21 0 - 55 unit/L [facility] Alkaline Phosphatase 81 40 - 130 unit/L [facility] Bilirubin, Total 0.7 0.2 - 1.3 mg/dL [facility] Bilirubin, Direct 0.2 0.0 - 0.3 mg/dL [facility] Blood 01/09/2024 2:58 PM EDT 01/09/2024 3:03 PM EDT Narrative Resulting Agency Comment Spec In Lab Zak Farmer MD CHEMISTRY ORDERABLE S Performing Organization Address [facility] Co de Phone Number [facility] [place] [address] * Prothrombin Time (01/09/2024 2:58 PM EDT) [facility] Prothrombin Time 10.6 9.4 - 12.5 sec [facility] International Normalization Ratio 0.9 [facility] Comment: An INR <2.0 indicates [...] MD HEMATOLOGY ORDERABL ES Performing Organization Address [facility]/ZIP Co de Phone Number [facility] [place] [address] * Type and Screen Future Surgery, [facility] ONLY) (01/09/2024 2:58 PM EDT) ABORH Type O NEGATIVE [facility] Patient BB History Not Found [facility] Expires at 2359 on: 02-20-2024 [facility] Ab Screen Interp Negative [facility] Blood 01/09/2024 2:58 PM EDT 01/09/2024 2:58 PM EDT Narrative Resulting Agency Comment Spec In Lab Zak Farmer MD BLOOD BANK LAB CECILIO ALEMAN [facility] Organization Address City/State/ZIP Co de Phone Number [facility] [place] [address] documented in this encounter Visit Diagnoses Diagnosis Nonrheumatic aortic valve stenosis Aortic valve disorders Nonrheumatic aortic valve stenosis Aortic valve disorders documented in this encounter Care Teams Chairman & Ceo Relationship Specialty Start Date End Date Vanessa Christian APRN PCP - General Family Medicine 10/21/23 05/26/24 documented as of this encounter
--- OUTSIDE RECORDS SUMMARY | 2024-06-29 08:04 | XMS_ITS | Encounter Summary ---
Author Organization [facility] Address [facility] [place] [address] Care Team Providers Care Heel Seat Trimmer Name Role Phone Vanessa Christian MAURI Primary Care Provider [phone] Encounter Details Date Type Department Care Team (Late st Contact Info) Description 02/14/2024 Orders [place] [phone] Zak Farmer MD [facility] [place] [address] Coronary artery disease, unspecified vessel or lesion type, unspecified whether angina present, unspecified whether picayune or transplanted heart (Primary Dx) Social History [...] PM EST Office Visit Cardiology at [address] [place] [phone] Neftali Ernandez MD [facility] [place]OLOG[place], [place] [phone] documented as of this encounter Results * EKG 12 Lead (03/12/2024 2:35 PM EDT) Ventricular rate 59 BPM MUSE SYSTEM Atrial Rate 59 BPM MUSE SYSTEM P-R Interval 190 ms MUSE SYSTEM QRS Duration 92 ms MUSE SYSTEM Q-T Interval 406 ms MUSE SYSTEM QTC Calculated (Bezet) 401 ms MUSE SYSTEM Calculated P Windsor -12 degrees MUSE SYSTEM Calculated R [place] 24 degrees MUSE SYSTEM Calculated T [place] 74 degrees MUSE SYSTEM INTERPRETATION Sinus bradycardia T wave abnormality, consider anterior ischemia Abnormal ECG When compared with ECG of 17-FEB-2024 13:24, AL interval has decreased T wave inversion now evident in Anterior leads Confirmed by Paul Guzman ([id number]) on 03/15/2024 8:36:23 AM MUSE SYSTEM 03/12/2024 2:35 PM EDT 03/15/2024 8:36 AM EDT Zak Farmer MD ECG ORDERABLES MUSE SYSTEM * XR Chest PA & Lateral (Generic) (03/12/2024 1:42 PM EDT) WORKSTATION ID [id number] RAD Anatomical Region Laterality Modality Chest N/A [...] who have questions please contact the health ambulatory care that requested your imaging first. ? Electronically signed by: Augie Sanchez MD, [facility] ([phone]), at 03/13/2024 8:28 AM Narrative 03/13/2024 8:28 AM EDT EXAMINATION: XR CHEST PA AND LATERAL (GENERIC) CLINICAL HISTORY: s/p cabg eval effusions I25.10, Atherosclerotic heart disease of picayune coronary artery without angina pectoris TECHNIQUE: PA [...] eval effusions I25.10, Atherosclerotic heart disease of picayune coronary artery withoutangina pectoris TECHNIQUE: PA and [...] patients who have questions please contactthe health ambulatory care that requested your imaging first. Electronically signed by: Augie Sanchez MD, [facility]([phone]), at 03/13/2024 8:28 AM Zak Farmer MD IMG DX ORDERABLES documented in this encounter Visit Diagnoses Diagnosis Coronary artery disease, unspecified vessel or lesion type, unspecified whether angina present, unspecified whether picayune or transplanted heart- Primary Coronary artery disease, unspecified vessel or lesion type, unspecified whether angina present, unspecified whether picayune or transplanted heart documented in this encounter Care Teams Heel Seat Trimmer Relationship Specialty Start Date End Date Vanessa Christian APRN PCP - General Family Medicine 10/21/23 05/26/24 documented as of this encounter
--- OUTSIDE RECORDS SUMMARY | 2024-06-29 08:04 | XMS_ITS | Encounter Summary ---
Author Organization [facility] Address [facility] [place] [address] Care Team Providers Care Scratch Brusher Name Role Phone Vanessa Christian MAURI Primary Care Provider [phone] Encounter Details Date Type Department Care Team (Latest Contact Info) Description 01/09/2024 3:02 PM EDT - 01/09/2024 11:59 PM EDT Hospital Encounter XRay at [address] [place] [address] Zak Farmer MD [facility] [place] [address] Nonrheumatic aortic valve stenosis Discharge Disposition: Home Social History Tobacco Use Types Packs/Day Years Used Date Smoking Tobacco: Former Cigarettes Smokeless Tobacco: Never Comments:Quit 15 + years ago Alcohol Use Standard Drinks/Week Comments Yes 0 (1 standard drink = 0.6 oz pur e alcohol) rare [facility] Inpatient Questions Answer Date Recorded Prevent [...] PM EST Office Visit Cardiology at [address] [place] [address] Neftali Ernandez MD [facility] [place] [address] documented as of this encounter Procedures Procedure [...] disorders documented in this encounter Care Teams Scratch Brusher Relationship Specialty Start Date End Date Vanessa Christian APRN PCP - General Family Medicine 10/21/23 05/26/24 documented as of this encounter
--- OUTSIDE RECORDS SUMMARY | 2024-06-29 08:04 | XMS_ITS | Encounter Summary ---
Author Organization [facility] Address [facility] [address] Care Team Providers Care Neonatal Critical Care Nurse Name Role Phone Vanessa Christian SALES ACTIVITY MANAGER Primary Care Provider [phone] Reason for Referral * Diagnostic Test (Routine) - Closed Specialty Diagnoses / Procedures Referred By Contac t Referred To Contact Radiology Diagnoses Nonrheumatic aortic valve stenosis Procedures CT Chest wo Contrast (Generic) Louisa Reid PA [facility] [place] [address] [facility] [place] [address] Referral ID Status Reason Start Date Expiration Date V isits Requested Visits Authorized [id number] Closed Specialty Service Requested 01/10/2024 07/11/2025 1 1 Encounter Details Date Type Department Care Team (Late st Contact Info) Description 01/09/2024 Orders [place] [address] Zak Farmer MD [facility] [place] [address] Nonrheumatic aortic valve stenosis Social History Tobacco [...] PM EST Office Visit Cardiology at [address] [place] [address] Neftali Ernandez MD [facility] [place] [address] documented as of this encounter Results * CT Chest wo Contrast (Generic) (02/03/2024 7:44 AM EDT) WORKSTATION ID [id number] RAD Anatomical Region Laterality Modality Chest Computed [...] who have questions please contact the health dialysis patient care technician that requested your imaging first. ? Electronically signed by: Rogerio Wright MD, [facility] ([phone]), at 02/03/2024 10:00 AM Narrative 02/03/2024 10:00 [...] nodule along the minor fissure (series 302 [id number]) and a 8 mm right lower lobe [...] patients who have questions please contactthe health dialysis patient care technician that requested your imaging first. Electronically signed by: Rogerio Wright MD, [facility]([phone]), at 02/03/2024 10:00 AM Zak Farmer MD IMG CT ORDERABLES documented in this encounter Visit Diagnoses Diagnosis Nonrheumatic aortic valve stenosis Aortic valve disorders Nonrheumatic aortic valve stenosis Aortic valve disorders documented in this encounter Care Teams Neonatal Critical Care Nurse Relationship Specialty Start Date End Date Vanessa Christian APRN PCP - General Family Medicine 10/21/23 05/26/24 documented as of this encounter
--- OUTSIDE RECORDS SUMMARY | 2024-06-29 08:04 | XMS_ITS | Encounter Summary ---
Author Organization [facility] Address [facility] [place] [address] Care Team Providers Care Occupational Safety And Health Manager Name Role Phone Vanessa Christian APRN Primary Care Provider [phone] Encounter Details Date Type Department Care Team [...] PM EST Office Visit Cardiology at [address] [place] [address] Neftali Ernandez MD [facility] [place] [address] documented as of this encounter Visit Diagnoses Not on filedocumented in this encounter Care Teams Occupational Safety And Health Manager Relationship Specialty Start Date End Date Vanessa Christian APRN PCP - General Family Medicine 10/21/23 05/26/24 documented as of this encounter
--- OUTSIDE RECORDS SUMMARY | 2024-06-29 08:04 | XMS_ITS | Encounter Summary ---
Author Organization [facility] [facility] [place] [address] Care Team Providers Care Commercial Stripper Name Role Phone Vanessa Christian MAURI Primary Care Provider [phone] Reason for Visit * Auth/Cert (Routine) Specialty [...] ARTERIAL GRAFT (WRVU 7.93) Zak Farmer MD [facility] [place] [address] [facility] Referral ID Status Reason Start Date Expiration Date Visits Re quested Visits Authorized [id number] 1 1 Encounter Details Date Type Department Care Team (Late st Contact Info) Description 02/17/2024 7:35 AM EDT Anesthesia Event Main Operating Room Formerly [facility] [place] [id number] Roman York MD [facility] [place] [address] Anesthesia Record Procedure Summary Procedure Name Responsible [...] by Sadiq Woo RN PIV 02/17/24; 0715; [id number] catheter system; 18 gauge; cephalic vein (lateral [...] th e electric, gas, oil, or water cloud[employer] threatened to shut off services in your [...] Summary Date: 02/17/24 Room / Location: [facility] OR [address] [place] [address] MAIN OR Anesthesia Start: 734 Anesthesia Stop: [...] shown include unfiled device data. Patient Location: [facility] Level of Consciousness: Sedated (Pharmacologic/Intentional) Pain [...] 08/14/2023 ??? Nevus of face 09/26/2023 Right baptism No past surgical history on file. Social [...] PM EST Office Visit Cardiology at [address] [place] [address] Neftali Ernandez MD [facility] [place] [address] documented as of this encounter [...] mg documented in this encounter Care Teams Commercial Stripper Relationship Specialty Start Date End Date Vanessa Christian APRN PCP - General Family Medicine 10/21/23 05/26/24 documented as of this encounter
--- OUTSIDE RECORDS SUMMARY | 2024-06-29 08:04 | XMS_ITS | Encounter Summary ---
Author Organization [facility] [place] [address] Care Team Providers Care Resident Physician In Radiology Name Role Phone Vanessa Christian APRN Primary Care Provider [phone] Encounter Details Date Type Department Care Team [...] PM EST Office Visit Cardiology at [address] [place] [phone] Neftali Ernandez MD [facility] [place] [address] documented as of this encounter Visit Diagnoses Not on filedocumented in this encounter Care Teams Resident Physician In Radiology Relationship Specialty Start Date End Date Vanessa Christian APRN PCP - General Family Medicine 10/21/23 05/26/24 documented as of this encounter
--- OUTSIDE RECORDS SUMMARY | 2024-06-29 08:04 | XMS_ITS | Encounter Summary ---
[facility] [place] [address] Care Team Providers Care Radiology Special Procedure Tech Name Role Phone Aparna Jordan MAURI Primary Care Provider [phone] Reason for Visit * Auth/Cert (Routine) Specialty [...] ARTERIAL GRAFT (WRVU 7.93) Hayder Graham MD [facility] [place] [address] [facility] Referral ID Status Reason Start Date Expiration Date Visits Re quested Visits Authorized [id number] 1 1 Encounter Details Date Type Department Care Team (Late st Contact Info) Description 02/17/2024 7:30 AM EDT - 02/17/2024 1:26 PM EDT [place] [id number] Hayder Graham MD [facility] [place] [address] ENDOSCOPIC HARVEST VEIN(S) FOR CABG (WRVU 0.31) Social History Tobacco Use Types Packs/Day Years Used Date Smoking Tobacco: Former Cigarettes Smokeless Tobacco: Never Comments:Quit 15 + years ago Alcohol Use Standard Drinks/Week Comments Yes 0 (1 standard drink = 0.6 oz pur e alcohol) rare [facility] Utilities Answer Date Recorded [...] Patient Age: 63 y.o. Birthdate: 1960 Language: Rwandan Race: White Ethnicity: Not nor Admit Date: 02/17/2024 Discharge Date: 02/24/24 Attending Physician: Hayder Graham MD Follow-up Recommendations for Providers: Please continue routine management of cardiovascular risk factors including blood pressure, lipids,glucose, etc. Please note any changes to medications. Patient to follow up with PCP, Aparna Jordan APRN, in 1-2 weeks. Patient to follow up with Ancillary Services Manager, Neftali Ernandez MD , in 2 weeks. Patient to follow up with Cardiac Surgeon, Dr. Hayder Graham, with a chest x-ray, EKG, and Echo. 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 He has glaucoma. He used to bacHooked until about 15 years ago. He has undergone prior herniorrhaphy. 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 Major Procedures/Operations: 02/17/24 s/p avr/cabgx3 CABG x 3 JOSE->LAD SVG->dRCA SVG->OM1 EVH from LLE AVR with a 23 mm Inspiris Bioprosthesis Hospital Course: Karlos Garcia was admitted to [facility] on 02/17/2024 via the Same Day Program. [...] Hayder Graham and/or the Cardiac Surgery Physician Card Assembler Team may be reached at . Antibiotic [...] Please refer to the card with the German Heart Association Guidelines for more information. You [...] Dr. Hayder Graham. You may use a [place] Track or treadmill but avoid any pulling [...] friends, go to a movie, go to advent, etc. Heavy activities: No hunting, skiing, jogging, [...] should resume a low fat, low cholesterol, German Heart Association Diet. Driving: No driving until [...] while being managed by your PCP and/or Ancillary Services Manager. For future medication refills, please refer to your PCP and/or Ancillary Services Manager after your discharge from our service. Thank you REMOVE CHEST TUBE SUTURES ON OR AFTER 03/02/24 Home oxygen therapy: N/A Follow up appointments: You should follow up with your PCP, Aparna Jordan APRN, in 1-2 weeks. Our office will schedule an appointment with your Ancillary Services Manager, Neftali Ernandez MD , in 2 weeks. You have an appointment with your Cardiac Surgeon, Dr. Hayder Graham, 4 weeks with a chest x-ray, EKG, and Echo before your appointment. Cardiac Rehabilitation: Karlos Garcia was seen regarding participation in the outpatient Phase 2Cardiac Rehabilitation at [facility]. The patient agrees to a referral to this program. The referral will be sent at discharge and the patient should be contacted by the Program within 1- 2 weeks from discharge. Future Appointments and Orders Future Orders Complete By Expires Echocardiogram Transthoracic [77160 CPT(R)] 03/26/2024 09/25/2024 Process Instructions: Scheduling Instructions: Questions: Where will study be performed?: [facility] Clinics Does the patient have Congenital Heart Disease?: Does patient require sedation?: Sedation rationale: XR Chest PA & Lateral (Generic) [79429 91318 Custom] 03/26/2024 09/25/2024 Process Instructions: Scheduling Instructions: Questions: Portable exam?: Reason for exam and clinical history: s/p avr/cabg Clinical information / jerome questions for radiologist: Stat read required?: Date of injury if applicable: Requested Time: Where will study be performed?: [facility] Radiology Referral to Cardiac Rehab [[id number] Custom] As directed Process Instructions: If no progress note charted, please enter Clinical details in comments. Scheduling Instructions: Questions: My question or request is: s/p AVR/CABG. Cardiac rehab at [facility]. Referral to Home Health [[id number] Custom] As directed Process Instructions: If no progress note charted, please enter Clinical details in comments. Scheduling Instructions: Comments: Please evaluate Karlos Garcia for admission to Home Health. [address] Phone Number: Date of : 1960 Inpatient DOCUMENTATION FOR VNA SERVICES (INCLUDING THOSE PATIENTS WITH MEDICARE COVERAGE REQUIRING HOME VNA SERVICES AND/OR HOSPICE SERVICES) PATIENT'S LOCATION: Karlos Garcia [address] [employer] [phone] Nitrocellulose Operator's Name: self/family In discussion with the attending physician, it is certified that this patient is under their care and that they, or a Nurse Practitioner, or Physician Card Assembler who is working directly with them, hada [...] for services as follows: HOME HEALTH AGENCY: [facility] [address] [place] [address] RN orders: Cardiopulmonary assessment, incisional assessment, assess [...] issues please call the Cardiology Office at [phone] FOR MEDICARE ONLY: (please delete this section [...] As above. Signed: NEFTALI MENON PA-C [facility] Section of Cardiac Surgery [facility] [place] [address] FAX [phone] Date: 02/24/2024 CC: Aparna Jordan, MAURI Jordan, Aparna Sherman APRN [address] [place] [address] documented in this encounter Discharge Instructions * [...] Hayder Graham and/or the Cardiac Surgery Physician Card Assembler Team may be reached at . Antibiotic [...] Please refer to the card with the German Heart Association Guidelines for more information. You [...] Dr. Hayder Graham. You may use a [place] Track or treadmill but avoid any pulling [...] friends, go to a movie, go to advent, etc. Heavy activities: No hunting, skiing, jogging, [...] should resume a low fat, low cholesterol, German Heart Association Diet. Driving: No driving until [...] while being managed by your PCP and/or Ancillary Services Manager. For future medication refills, please refer to your PCP and/or Ancillary Services Manager after your discharge from our service. Thank you REMOVE CHEST TUBE SUTURES ON OR AFTER 03/02/24 Home oxygen therapy: N/A Follow up appointments: You should follow up with your PCP, Aparna Jordan APRN, in 1-2 weeks. Our office will schedule an appointment with your Ancillary Services Manager, Neftali Ernandez MD , in 2 weeks. You have an appointment with your Cardiac Surgeon, Dr. Hayder Graham, 4 weeks with a chest x-ray, EKG, and Echo before your appointment. Cardiac Rehabilitation: Karlos Garcia was seen regarding participation in the outpatient Phase 2Cardiac Rehabilitation at [facility]. The patient agrees to [...] 0600 and on the weekends please page [phone]. * Eric Barahona PA - 02/23/2024 9:27 [...] 0600 and on the weekends please page [phone]. * Tiffanie Owens - 02/22/2024 2:48 PM [...] d/c for 10 days. Pt was indep LORRY WEIGHER. He drives. He works Precautions/Special Considerations: STERNAL [...] LRAD and supervision Time IN / OUT: 6224-4852 Total Time: 30 minutes; TEFx2 Tiffanie Owens Pager: [phone] Physical Therapy Inpatient Rehabilitation Department * Romeo [...] 0600 and on the weekends please page [phone]. * Kelley Hinson LORRY WEIGHER - 02/21/2024 10:15 AM EDT Physical Therapy [...] d/c for 10 days. Pt was indep LORRY WEIGHER. He drives. He works Precautions/Special Considerations: STERNAL [...] LRAD and supervision Time IN / OUT: 3015-0391 Total Time: 25 minutes; TEF 2 Kelley Hinson PTA Pager: [phone] Physical Therapy Inpatient Rehabilitation Department * Louisa [...] 0600 and on the weekends please page [phone]. * Kelley Hinson PTA - 02/20/2024 3:32 [...] at that time Kelley Hinson PTA Pager: [phone] Physical Therapy Inpatient Rehab Department * Louisa [...] 0600 and on the weekends please page [phone]. * Maris Benavides, PT - 02/19/2024 11:22 [...] d/c for 10 days. Pt was indep LORRY WEIGHER. He drives. He works. Precautions/Special Considerations: STERNAL [...] outlined inthis evaluation. MARIS BENAVIDES, PT Pager: [phone] Physical Therapy Inpatient Rehabilitation Department Time IN / OUT: 7154-1597 Total Time: 38 (eval) minutes; * Antonio [...] 0600 and on the weekends please page [phone]. * Minnie Begum PA - 02/18/2024 8:25 [...] site CDI with SANJANA wrap Tubes/Lines/Drains: RIJ/PAC, Onemo, Med Ctx, L pleural CT, TPW, Naqvi [...] 0600 and on the weekends please page [phone]. * Kim Ha WOOD CUTTER - 02/17/2024 2:25 PM EDT Respiratory Care [...] plan since last visit. Hayder Graham MD [phone] Source Note - Hayder Graham MD - [...] given written informed consent. Hayder Graham MD [phone] * Hayder Graham MD - 02/17/2024 7:00 [...] given written informed consent. Hayder Graham MD [phone] documented in this encounter Miscellaneous Notes * [...] information for follow-up Home Health & Hospice, [address] [place] [address] Cardiac Rehab, [address] [place] [address] Transportation: family or friend will provide Functional status prior to admission: Independent Home Environment: Others in the home: alone. Current Living Arrangements: home/apartment/condo. Accessibility Concerns:a few steps to enter 1 floor home. Current Functional Ability: Assistive Person and Equipment DME used at home: none DME Needed at Discharge: N/A Patient is insured through: Primary Insurance: [place] [employer] Payor: [facility] / Plan: [facility] PPO [...] pain managed with scheduled Tylenol. Worked with [employer]. Ambulated in the roque multiple times [...] is insured through: Primary Insurance: [facility] Payor: [facility] / Plan: [facility] PPO [...] Services: Physical Therapy, Registered Nurse Agency Referrals: [facility]. [address] [place] [address] Transportation: family or friend will provide Barriers to discharge: Discharge planning Plan going forward: Service Care Management will continue to follow and assist with discharge planning and coordination of care as indicated. Anticipated Date of Discharge: 02/22/2024 Rhett Bell RN RN/CM - Cellphone: [phone] Pager: [phone] Covering Service RN/CM * Plan of Care [...] Yang RN - 02/19/2024 10:44 AM EDT [facility] CARDIAC REHABILITATION Karlos Garcia was seen today regarding participation in the outpatient Phase 2 Cardiac Rehabilitation at [facility]. 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 (Only good for 180 days) Any patient receiving care in [place] must abide by [place] law. The hierarchy [...] (i) The agent with financial power of contract attorney or a conservator appointed in accordance [...] In the past 12 months has the [employer], gas, oil, or water [employer] threatened to shut off services in your [...] as: [address] [facility] [address] Physical address: [address] [facility], [address] Social & Family Supports: All names listed [...] noted Health/Prescription Coverage: Primary Insurance: [facility] Payor: [facility] / Plan: [facility] PPO / Product Type: *No Product type* / Secondary Insurance: N/A ; Prescription Coverage: Yes Preferred Pharmacy: [id number] [address] Status: Patient is a : No Primary Care Provider confirmed: Aparna Jordan APRN [phone] Patient/Caregiver Goals of Treatment: dc to home Potential Needs for Transition of Care: home health care Agency Referrals: I have met with the patient to: discuss discharge planning needs. provide the [facility], Office of Care Management letter from the Mill Supervisor pertaining to rehab referrals. provide a letter describing our affiliations within the [facility] and educate about their right to choose where referrals are sent. provide a list of Home Health Agencies / Durable Medical Equipment vendors which serve their preferred geographic area. provided patient with [facility] Star Quality Rating handout. They have requested referrals to: [facility] [address] [place] [address] Note routed to a Counter Professional who will communicate referrals to facilities and [...] Reina Greene RN CM, BSN, CMGT- Ext [phone] * Plan of Care - Binta Trinidad [...] Operative Note Patient Name: Karlos Garcia : [id number] MR#: [id number] Case Date: 02/17/2024 Surgeon: Surgeon(s) and Role: * Hayder Graham MD - Primary * Neftali Menon PA - Physician Card Assembler Preoperative diagnosis: CAD Postoperative diagnosis: CAD, intraoperative [...] Graham MD - 02/17/2024 8:20 AM EDT [facility] Operative Note Patient Name: Karlos Garcia : [id number] MR#: [id number] Case Date: 02/17/2024 Surgeon: Surgeons and Role: * Hayder Graham MD - Primary * Neftali Menon PA - Physician Card Assembler Preoperative diagnosis: CAD Postoperative diagnosis: CAD, intraoperative [...] PM EST Office Visit Cardiology at [address] [address] Neftali Ernandez MD [facility] [place] [address] Scheduled Orders Name Type Priority Associated Diagnoses [...] Aortic Valve Open W Cardiopulmonary Bypass Homogrf/Stent (01486) Yes 02/17/2024 7:28 AM EDT CAD Cabg, Artery-Vein, Two (12863) Yes 02/17/2024 7:28 AM EDT CAD Cabg, Arterial, Single (31113) Yes 02/17/2024 7:28 AM EDT CAD Endoscopy W/Video-Asst Vein [place], Cabg (19033) Yes 02/17/2024 7:28 AM EDT CAD POCT [...] MD CHEMISTRY ORDERABLE S [facility] [place] [address] * (ABNORMAL) Basic Metabolic Panel (non-fasting) (02/23/2024 [...] Carpio MD CHEMISTRY ORDERABLES [facility] [place] [address] * Potassium (02/22/2024 4:30 AM EDT) Potassium [...] MD CHEMISTRY ORDERABLE S [facility] [place] [address] * (ABNORMAL) Basic Metabolic Panel (non-fasting) (02/21/2024 [...] Carpio MD CHEMISTRY ORDERABLES [facility] [place] [address] * Lactate, whole blood, send to lab ([facility]) (02/21/2024 9:45 AM EDT) [facility] Lactate WB 2.0 0.5 - 2.2 mmol/L [facility] Blood 02/21/2024 9:45 AM EDT 02/21/2024 9:52 AM EDT Narrative Resulting Agency Comment Spec In Lab Hayder Graham MD CHEMISTRY ORDERABLE S Performing Organization Address [facility] Co de Phone Number [facility] [place] [address] * (ABNORMAL) Hepatic Function Panel (02/21/2024 9:45 AM EDT) [facility] Protein, Total 5.7(L) 6.1 - 8.0 [...] MD CHEMISTRY ORDERABLE S [facility] [place] [address] * Lipase (02/21/2024 9:45 AM EDT) Lipase 56 0 - 60 unit/L [facility] Blood 02/21/2024 9:45 AM EDT 02/21/2024 9:52 AM EDT Narrative Resulting Agency Comment Spec In Lab Hayder Graham MD CHEMISTRY ORDERABLE S [facility] [place] [address] * Amylase (02/21/2024 9:45 AM EDT) Amylase 69 28 - 100 unit/L [facility] Blood 02/21/2024 9:45 AM EDT 02/21/2024 9:52 AM EDT Narrative Resulting Agency Comment Spec In Lab Hayder Graham MD CHEMISTRY ORDERABLE S Performing Organization Address City/[facility]/ZIP Co de Phone Number [facility] [place] [address] * Potassium (02/21/2024 3:08 AM EDT) Potassium [...] MD CHEMISTRY ORDERABLE S [facility] [place] [address] * XR Chest PA & Lateral (Generic) (02/20/2024 10:19 AM EDT) WORKSTATION ID [id number] RAD Anatomical Region Laterality Modality Chest N/A Digital Radiogra phy Impressions 02/20/2024 1:11 PM EDT Small pleural effusions. No pneumothorax Thank you for letting us participate in the care of this patient. ??If you are a health care provider and have any questions regarding this report, please contact the number below. ??For patients who have questions please contact the health healthcare applications analyst that requested your imaging first. ? Narrative 02/20/2024 1:11 PM EDT EXAMINATION: XR CHEST PA AND LATERAL (GENERIC) CLINICAL HISTORY: s/p AVR/CABGx3 TECHNIQUE: PA and lateral views of the chest COMPARISON: 02/17/2024 FINDINGS: Support devices: Interval removal of Marion-Kaila catheter, endotracheal tube and mediastinal chest tubes The cardiac silhouette is stable status post median sternotomy, CABG and aortic valve replacement. There are small pleural effusions. No pneumothorax. Procedure Note Rogerio Cruz MD - 02/20/2024 EXAMINATION: XR CHEST PA AND LATERAL (GENERIC) CLINICAL HISTORY: s/p AVR/CABGx3 TECHNIQUE: PA and lateral views of the chest COMPARISON: 02/17/2024 FINDINGS: Support devices: Interval removal of Marion-Kaila catheter, endotracheal tubeand mediastinal chest tubes The [...] who have questions please contactthe health healthcare applications analyst that requested your imaging first. Hayder Graham MD IMG DX ORDERABLES * Scan, Peripheral Blood (02/20/2024 4:23 AM EDT) Pathologist [facility] Plat estimate Decreased [facility] RBC Morphology Normal [facility] Blood 02/20/2024 4:23 AM EDT 02/20/2024 4:42 AM EDT Narrative Resulting Agency Comment Spec In Lab Minnie FRENCH HEMATOLOGY CECILIO ALEMAN [facility] [place] [id number] * (ABNORMAL) Differential, Automated (02/20/2024 4:23 AM EDT) [facility] Neutrophil % 81.7 % [facility] Neutrophil Absolute 10.37(H) 1.70 - 6.10 x10(3)/mc L [facility] Lymph % 7.4 % [facility] Lymphocytes Abs 0.9 0.9 - 3.2 x10(3)/mc L [facility] Monocyte % 9.7 % [facility] Monocyte Abs 1.2(H) 0.3 - 0.9 x10(3)/mc L [facility] Eos % 0.1 % [facility] Eosinophils Abs 0.0 0.0 - 0.4 x10(3)/mc L [facility] Basophil % 0.2 % [facility] [...] FRENCH HEMATOLOGY CECILIO ALEMAN [facility] [place] [address] * (ABNORMAL) Hemogram (02/20/2024 4:23 AM EDT) White Blood Cell 12.7(H) 4.0 - 9.5 x10(3)/ L [facility] Red Blood Cell [...] Platelet 88(L) 145 - 357 x10(3)/ L [facility] RDW Standard Deviation 43.5 36.0 - 45.0 fL [facility] RDW coefficient of variation 13.7 11.4 - 13.8 % [facility] Mean Platelet Volume 10.2 7.6 - 12.9 fL [facility] NRBC% auto 0.0 % [facility] NRBC Absolute 0.000 0.000 - 0.000 x10(3)/mc L [facility] Blood 02/20/2024 4:23 AM EDT 02/20/2024 4:42 AM EDT Narrative Resulting Agency Comment Spec In Lab Minnie FRENCH HEMATOLOGY CECILIO ALEMAN [facility] [place] [address] * (ABNORMAL) Basic Metabolic Panel (non-fasting) (02/20/2024 4:23 AM EDT) Glucose 113 65 - 199 mg/dL [facility] Comment:Diabetes: >=200 mg/d L plus symptoms Blood Urea Nitrogen 20 10 - 20 mg/dL [facility] Comment:result rechecked-OK Creatinine 0.71(L) 0.80 - 1.50 mg/dL [facility] [...] ORDERABLE S Performing Organization Address [facility] Co de Phone Number [facility] [place] [address] * Potassium (02/19/2024 3:57 AM EDT) Potassium [...] ORDERABLE S Performing Organization Address [facility]/ZIP Co de Phone Number [facility] [place] [address] * POCT Glucose (02/18/2024 8:24 AM EDT) Glucose, POC 157 65 - 199 mg/dL [facility] Comment: Supplemental ranges: <140 mg/dL before meals <180 mg/dL all other times of the day Blood 02/18/2024 8:24 AM EDT 02/18/2024 8:24 AM EDT Hayder Graham MD POINT OF CARE TEST ORDERABLES Performing Organization Address City/[facility]/ZIP Co de Phone Number [facility] [place] [address] * Scan, Peripheral Blood (02/18/2024 1:40 AM EDT) Plat estimate Decreased [facility] RBC Morphology Normal [facility] Blood 02/18/2024 1:40 AM EDT 02/18/2024 1:56 AM EDT Narrative Resulting Agency Comment Spec In Lab Neftali FRENCH HEMATOLOGY ORDER OLE Performing Organization Address City/[facility] Co de Phone Number [facility] [place] [address] * (ABNORMAL) Differential, Automated (02/18/2024 1:40 AM EDT) [facility] Neutrophil % 87.1 % [facility] Neutrophil Absolute 15.03(H) 1.70 - 6.10 x10(3)/mc L [facility] Lymph % 3.0 % [facility] Lymphocytes Abs 0.5(L) 0.9 - 3.2 x10(3)/mc L [facility] Monocyte % 9.1 % [facility] Monocyte Abs 1.6(H) 0.3 - 0.9 x10(3)/mc L [facility] Eos % 0.0 % [facility] Eosinophils Abs 0.0 0.0 - 0.4 x10(3)/mc L [facility] Basophil % 0.2 % [facility] [...] Absolute 0.10(H) 0.00 - 0.04 x10(3)/mc L [facility] Blood 02/18/2024 1:40 AM EDT 02/18/2024 1:56 AM EDT Narrative Resulting Agency Comment Spec In Lab Neftali FRENCH HEMATOLOGY ORDER OLE [facility] [place] [address] * (ABNORMAL) Hemogram (02/18/2024 1:40 AM EDT) White Blood Cell 17.2(H) 4.0 - 9.5 x10(3)/mc L [facility] Red Blood Cell 4.71 4.58 - 5.54 x10(6)/mc L [facility] Hemoglobin 13.7 13.7 - 16.5 g/dL [facility] Hematocrit 39.2(L) 40.5 - 48.5 % [facility] Mean Cell Volume 83.2 82.9 - 93.1 fL [facility] [...] Platelet Volume 9.9 7.6 - 12.9 fL [facility] NRBC% auto 0.0 % [facility] NRBC Absolute 0.000 0.000 - 0.000 x10(3)/mc L [facility] Blood 02/18/2024 1:40 AM EDT 02/18/2024 1:56 AM EDT Narrative Resulting Agency Comment Spec In Lab Neftali FRENCH HEMATOLOGY ORDER OLE [facility] [place] [address] * (ABNORMAL) Basic Metabolic Panel (non-fasting) (02/18/2024 [...] MD CHEMISTRY ORDERABLE S [facility] [place] [address] * (ABNORMAL) Troponin (02/18/2024 1:40 AM EDT) Pathologist [facility] Troponin-T, High Sensitivity 342(H) <=22 ng/L [facility] [...] [facility] Test Catalog Reference: [place] Definition of Myocardial Infarction. Journal of the [employer] 2018;72:2202-4878 Blood 02/18/2024 1:40 AM EDT 02/18/2024 1:56 AM EDT Narrative Resulting Agency Comment Spec In Lab Hayder Graham MD CHEMISTRY ORDERABLE S Performing Organization Address [facility] Co de Phone Number [facility] [place] [address] * POCT Glucose (02/17/2024 8:13 PM EDT) Glucose, POC 142 65 - 199 mg/dL [facility] Comment: Supplemental ranges: <140 mg/dL before meals <180 mg/dL all other times of the day Blood 02/17/2024 8:13 PM EDT 02/17/2024 8:13 PM EDT Hayder Graham MD POINT OF CARE TEST ORDERABLES Performing Organization Address [facility] de Phone Number [facility] [place] [address] * POCT Glucose (02/17/2024 5:42 PM EDT) Glucose, POC 160 65 - 199 mg/dL [facility] Comment: Supplemental ranges: <140 mg/dL before meals <180 mg/dL all other times of the day Blood 02/17/2024 5:42 PM EDT 02/17/2024 5:42 PM EDT Hayder Graham MD POINT OF CARE TEST ORDERABLES Performing Organization Address [facility] Co de Phone Number [facility] [place] [address] * Hemoglobin (02/17/2024 5:42 PM EDT) Hemoglobin 13.7 13.7 - 16.5 g/dL [facility] Blood 02/17/2024 5:42 PM EDT 02/17/2024 6:10 PM EDT Narrative Resulting Agency Comment Spec In Lab Hayder Graham MD HEMATOLOGY ORDERABL ES Performing Organization Address [facility]/ZIP Co de Phone Number [facility] [place] [address] * Potassium (02/17/2024 5:42 PM EDT) Pathologist [facility] Potassium 4.3 3.5 - 5.0 mmol/L PRO[facility] [...] ORDERABLE S Performing Organization Address [facility] Co de Phone Number [facility] [place] [address] * (ABNORMAL) BLOOD GAS 2 ARTERIAL (02/17/2024 [...] [facility] FIO2 Art 40 % [facility] PF Ratio Art 195 [facility] Blood 02/17/2024 4:18 PM EDT 02/17/2024 4:18 PM EDT Hayder Graham MD POINT OF CARE TEST ORDERABLES Performing Organization Address City/State/[facility] Co de Phone Number [facility] [place] [address] * XR Chest One View (02/17/2024 1:44 PM EDT) [employer] WORKSTATION ID [id number] RAD Anatomical Region Laterality Modality Chest N/A Digital Radiogra phy Impressions 02/17/2024 2:12 PM EDT 1. ??No definite pleural fluid collection or pneumothorax. 2. ??Right IJ Marion-Kaila catheter tip terminates in a descending branch [...] have questions please contact the health healthcare applications analyst that requested your imaging first. ? Narrative 02/17/2024 2:12 PM EDT EXAMINATION: XR CHEST ONE VIEW CLINICAL HISTORY: s/p avr/cabg eval effusions TECHNIQUE: 1 view of the chest COMPARISON: Chest x-ray 01/09/2024, chest CT 02/03/2024 FINDINGS: ET tube tip terminates 5.2 cm above the carlos. Right IJ Marion-Kaila catheter tip terminates in a descending branch [...] 5.2 cm above the carlos. Right IJ Marion-Ganzcatheter tip terminates in a descending branch of [...] fluid collection or pneumothorax. 2. Right IJ Marion-Kaila catheter tip terminates in a descending branch ofthe right pulmonary artery. Suggest catheter retraction. 3. Additional support lines and tubes as above. Thank you for letting us participate in the care of this patient. If youare a health care provider and have any questions regarding this report,please contact the number below. For patients who have questions please contactthe health healthcare applications analyst that requested your imaging first. Hayder Graham [...] [facility] FIO2 Art 100 % [facility] PF Ratio Art 320 [facility] Blood 02/17/2024 1:31 PM EDT 02/17/2024 1:31 PM EDT Hayder Graham MD POINT OF CARE TEST ORDERABLES [facility] [place] [address] * (ABNORMAL) Coox2 (02/17/2024 1:21 PM EDT) pO2, Coox 44 mmHg [facility] [...] OF CARE TEST ORDERABLES [facility] [place] [address] * (ABNORMAL) BLOOD GAS 2 ARTERIAL (02/17/2024 [...] TEST ORDERABLES Performing Organization Address [facility] Co de Phone Number [facility] [place] [address] * (ABNORMAL) Fibrinogen (02/17/2024 12:10 PM EDT) [...] MD HEMATOLOGY ORDERABLE S Performing Organization Address [facility] Co de Phone Number [facility] [place] [address] * (ABNORMAL) Thrombin time (02/17/2024 12:10 PM [...] MD HEMATOLOGY ORDERABLE S Performing Organization Address [facility] Co de Phone Number [facility] [place] [address] * APTT (02/17/2024 12:10 PM EDT) Partial [...] MD HEMATOLOGY ORDERABLE S Performing Organization Address [facility]/ZIP Co de Phone Number [facility] [place] [address] * (ABNORMAL) Prothrombin Time (02/17/2024 12:10 PM [...] MD HEMATOLOGY ORDERABLE S [facility] [place] [address] * (ABNORMAL) Hemogram (02/17/2024 12:10 PM EDT) [...] [facility] NRBC% auto 0.0 % [facility] NRBC Absolute 0.000 0.000 - 0.000 x10(3)/mc L [facility] Blood 02/17/2024 12:1 0 PM EDT 02/17/2024 12:19 PM EDT Narrative Resulting Agency Comment Spec In Lab Tara York MD HEMATOLOGY ORDERABLE S [facility] [place] [address] * (ABNORMAL) BLOOD GAS 2 ARTERIAL (02/17/2024 [...] mmol/L [facility] Comment: Noted by musical instrument [...] OF CARE TEST ORDERABLES [facility] [place] [address] * (ABNORMAL) BLOOD GAS 2 ARTERIAL (02/17/2024 [...] mmol/L [facility] Comment: Noted by musical instrument [...] TEST ORDERABLES Performing Organization Address [facility]/ZIP Co de Phone Number [facility] [place] [address] * (ABNORMAL) Hemoglobin and Hematocrit, blood (02/17/2024 11:04 AM EDT) Pathologist [facility] Hemoglobin 9.6(L) 13.7 - 16.5 g/dL PRO[facility] [...] MD HEMATOLOGY ORDERABL ES Performing Organization Address City/[facility]/ZIP Co de Phone Number [facility] [place] [address] * (ABNORMAL) Platelet count (02/17/2024 11:04 AM EDT) Pathologist [facility] Platelet 106(L) 145 - 357 x10(3)/mc L [facility] Immature Plt % 1.6 0.0 - 7.4 % [facility] Comment: Limitation of the Immature Platelet Fraction (IPF)-May be less reliable when the platelet count is less than 36q111/uL due to statistical imprecision. The IPF value [...] in a decreased state of production. References: [employer] The Clinical Value of the Immature Platelet Fraction (IPF) in Cell Recovery Document Number [id number] 03/2011 [employer] The Role of the Immature Platelet Fraction (IPF) in the Differential Diagnosis of Thrombocytopenia, Document MKT-[id number] V002/15/14 P014 Blood 02/17/2024 11:0 4 AM EDT 02/17/2024 11:12 AM EDT Narrative Resulting Agency Comment Spec In Lab Hayder Graham MD HEMATOLOGY ORDERABL ES Performing Organization Address City/State/[facility] Co de Phone Number [facility] [place] [address] * (ABNORMAL) Fibrinogen (02/17/2024 11:04 AM EDT) [...] MD HEMATOLOGY ORDERABL ES [facility] [place] [address] * (ABNORMAL) BLOOD GAS 2 ARTERIAL (02/17/2024 [...] OF CARE TEST ORDERABLES [facility] [place] [address] * (ABNORMAL) BLOOD GAS 2 ARTERIAL (02/17/2024 [...] OF CARE TEST ORDERABLES [facility] [place] [address] * Surgical Pathology Report (02/17/2024 10:01 AM EDT) Final Diagnosis [id number] ? Location: [facility]; [facility]; The signing pathologist has (i) examined the relevant preparation(s) for the specimen(s) and (ii) rendered or confirmed the diagnosis(es). . ?Surgical Pathology DIAGNOSIS Aortic valve leaflets, excision: Valve leaflets with myxoid degeneration, nodular fibrosis and dystrophic calcifications. Electronically signed by: ?Lindsay FERNANDEZ, Livier Gonzalez Verified: ??02/24/2024 13:49 ??Pathologist Performed at: ??-[facility] Dept. of Pathology, [place] [address] Mill Supervisor: Job Brewer MD, FCAP, ??CLIA Certificate: [id number] SPECIMEN(S) SUBMITTED A - Aortic Valve Leaflets, [...] Sections Processing Blocks submitted for decalcification: A1. Shellfish Shucker sections in 1 cassette labeled A1. ??ajw 02/24/2024 1:49 PM EDT [facility] AORTIC STRUCTURE / Unknown 02/17/2024 10:01 AM EDT 02/17/2024 10:01 AM EDT Hayder rGaham MD PATHOLOGY/CYTOLOGY ORDERABLES Performing Organization Address City/[facility]/ZIP Co de Phone Number [facility] [place] [address] * Specimen to Pathology (02/17/2024 10:01 AM EDT) AP Specimen 02/17/2024 10:0 1 AM EDT 02/17/2024 10:01 AM EDT Narrative [facility] - 02/17/2024 10:01 AM EDT Specimen requisition ordered. ??Separate Pathology report to follow Hayder Graham MD PATHOLOGY/CYTOLOGY ORDERABLES Performing Organization Address City/[facility]/ZIP Co de Phone Number [facility] [place] [address] * (ABNORMAL) BLOOD GAS 2 ARTERIAL (02/17/2024 [...] OF CARE TEST ORDERABLES [facility] [place] [address] * (ABNORMAL) BLOOD GAS 2 VENOUS (02/17/2024 9:34 AM EDT) pH, Venous 7.22(Criti marquez) 7.32 - 7.42 [facility] Comment:Noted by musical instrument supervisor. PCO2, Venous 43 41 - 51 mmHg [facility] Comment:Noted by musical instrument supervisor. PO2, Venous 57(H) 25 - 40 mmHg [facility] Comment:Noted by musical instrument supervisor. Bicarbonate, Venous 17.1 mmol/L [facility] Comment:Noted by musical instrument supervisor. Base Excess, Venous -10.6 mmol/L [facility] Comment:Noted by musical instrument supervisor. Hgb Blood Gas 11.2(L) 13.7 - 16.5 g/dL [facility] Comment:Noted by musical instrument supervisor. Oxyhemoglobin, Venous 86.5 % [facility] Comment:Noted by musical instrument supervisor. Carboxyhemoglob in, Venous 0.3 % [facility] Comment: Noted by musical instrument supervisor. Nonsmokers: 0.5-1.5% COHB Smokers: Variable, but usually less than 10% Toxic: 20-30% COHB Lethal: Greater than 60% COHB Methemoglobin, Venous 0.0 <=1.5 % [facility] Comment:Noted by musical instrument supervisor. Na Whole Blood 156(H) 135 - 145 mmol/L [facility] Comment:Noted by musical instrument supervisor. K Whole Blood 5.5(H) 3.5 - 5.0 mmol/L [facility] Comment: Noted by musical instrument supervisor. Please note: Patients with WBC >100,000 may have falsely elevated Potassium levels. Contact the Clinical Chemistry Laboratory if there are any questions. ICa Whole Blood 1.03(L) 1.15 - 1.33 mmol/L [facility] Comment: Noted by musical instrument supervisor. Note: ??Total bilirubin higher than 20 mg/dL may lead to falsely low ionized calcium. CL Whole Blood 100 98 - 107 mmol/L [facility] Comment:Noted by musical instrument supervisor. Gluc Whole Bld 132 65 - 199 mg/dL [facility] Comment: Noted by musical instrument supervisor. Diabetes: >=200 mg/dL plus symptoms Lactate WB 1.0 0.5 - 2.2 mmol/L [facility] Comment:Noted by musical instrument supervisor. Blood Gas Source Venous [facility] Blood 02/17/2024 9:34 AM EDT 02/17/2024 9:34 AM EDT Hayder Graham MD POINT OF CARE TEST ORDERABLES [facility] [place] [address] * (ABNORMAL) BLOOD GAS 2 ARTERIAL (02/17/2024 [...] TEST ORDERABLES Performing Organization Address [facility] Co de Phone Number [facility] [place] [address] * POCT Glucose (02/17/2024 6:38 AM EDT) Glucose, POC 98 65 - 199 mg/dL [facility] Comment: Supplemental ranges: <140 mg/dL before meals <180 mg/dL all other times of the day Blood 02/17/2024 6:38 AM EDT 02/17/2024 6:38 AM EDT Hayder Graham MD POINT OF CARE TEST ORDERABLES Performing Organization Address [facility] Co de Phone Number [facility] [place] [address] * Transesophageal Echo/OR (02/17/2024 6:33 AM EDT) [...] transes[facility]-operative [facility] cardiac [...] RN) [phone] (Given - Provider: Mishel Merrill, COBLY)2115 (Given - Provider: Otis Crook, COLBY) 0836 [...] Routine documented in this encounter Care Teams Radiology Special Procedure Tech Relationship Specialty Start Date End Date Aparna Jordan APRN PCP - General Family Medicine 10/21/23 05/26/24 documented as of this encounter
--- OUTSIDE RECORDS SUMMARY | 2024-06-29 08:04 | XMS_ITS | Encounter Summary ---
Author Organization [facility] [place] [address] Care Team Providers Care Underwater Hunter Trapper Name Role Phone Vanessa Christian Lane DOTSON Primary Care Provider [phone] Encounter Details Date Type Department Care Team (Late st Contact Info) Description 01/09/2024 2:30 PM EDT Clinical Support Same Day at [facility] [place] [id number] Social History Tobacco Use Types Packs/Day Years [...] you tube link for a video about [facility] cardiac surgery. Instructed to bring [...] PM EST Office Visit Cardiology at [address] [place] [address] Neftali Ernandez MD [facility] [place] [address] documented as of this encounter Visit Diagnoses Not on filedocumented in this encounter Care Teams Underwater Hunter Trapper Relationship Specialty Start Date End Date Vanessa Christian APRN PCP - General Family Medicine 10/21/23 05/26/24 documented as of this encounter
--- OUTSIDE RECORDS SUMMARY | 2024-06-29 08:04 | XMS_ITS | Encounter Summary ---
Author Organization [facility] [place] [address] Care Team Providers Care Slip Feeder Name Role Phone Vanessa Christian MAURI Primary Care Provider [phone] Reason for Visit * Auth/Cert (Routine) Specialty [...] (WRVU 5.9) Rima Dickinson MD [facility] [place] [address] [facility] Referral ID Status Reason Start Date Expiration Date Visits Re quested Visits Authorized [id number] 1 1 Encounter Details Date Type Department Care Team (Late st Contact Info) Description 02/03/2024 10:00 AM EDT - 02/03/2024 11:00 AM EDT [place] [address] Saira Lua MD [facility] [place] [address] CARDIAC CATHETERIZATION Social History Tobacco Use Types [...] lbs Follow-up Visits Follow up with your senior business process analyst in 2-4 weeks Access Site 'Black and Blue' and tenderness is expected during the first week Call if you noted a mass (lump) greater than the size of a ellis Call Office with any Questions and if you have any of the following Clarence Lane M.D Interventional Bluing Oven Tender Senior Accounting Specialist #: [phone] * Attachments The following attachments cannot be sent through Care Everywhere. * CAD (Coronary Artery Disease): General Info (Cambodian) * Coronary Angiogram: Post-op (Cambodian) documented in this encounter Medications at Time [...] Lane MD - 02/03/2024 11:48 AM EDT [facility] Interventional Cardiology Adult Pre-Procedure H&P Update: Cardiac Catheterization Karlos Anthony [id number] 1960 Chief Complaint: Aortic stenosis HPI: Mr. [...] is inthe chart Clarence Lane MD Interventional Bluing Oven Tender 02/03/24 11:48 AM documented in this encounter Miscellaneous Notes * Brief Op Note - Clarence Lane MD - 02/03/2024 12:51 PM EDT Preliminary Cardiac Catheterization Procedure Note: Patient Name: Karlos Anthony : [id number] MR#: [id number] Case Date: 02/03/2024 Senior Accounting Specialist: Surgeon(s) and Role: * Saira Lua MD [...] PM EST Office Visit Cardiology at [address] [address] Neftali Ernandez MD [facility] [place] [address] Scheduled Orders Name Type Priority Associated Diagnoses [...] Narrative 02/12/2024 3:47 PM EDT ?[facility] ? Cardiac Catheterization/Intervention Report ? Patient Name: Patenaude, Karlos ? Procedure Date: 02/03/2024 ? A #: [id number] ? Primary Physician: Saira Lua ? Case #: [id number] ? File Name: [id number] ? Catheterization Order Number: [id number] ? [facility] ? Final Report [place], [place] ? Patient Name: ? Karlos Patenaude ? ID#: ?[id number] ? : ?1960 ? Procedure Date: ? [...] Saira Lua MD - 02/12/2024 [facility] Cardiac Catheterization/Intervention Report Patient Name: Karlos Anthony Procedure Date: 02/03/2024 A #: [id number] Primary Physician: Saira Lua Case #: [id number] File Name: [id number] Catheterization Order Number: [id number] [facility] FinalReport [place], [place] Patient Name: Karlos Anthony ID#:[id number] :1960 Procedure Date: February 03, 2024 Case [...] was designated as ASA Class III. The [facility] clinical frailty scale is 3: Managing [...] (Bezet) 372 ms MUSE SYSTEM Calculated P [place] 59 degrees MUSE SYSTEM Calculated R [place] 34 degrees MUSE SYSTEM Calculated T [place] 63 degrees MUSE SYSTEM INTERPRETATION Sinus bradycardia Otherwise normal ECG When compared with ECG of 21-OCT-2023 15:34, No significant change was found Confirmed by MD RENEE, PIPER ([id number]) on 02/03/2024 11:57:31 AM MUSE SYSTEM 02/03/2024 10:3 3 AM EDT 02/03/2024 11:57 AM EDT iRma Youngblood MD ECG ORDERABLES MUSE SYSTEM documented [...] MD) documented in this encounter Care Teams Slip Feeder Relationship Specialty Start Date End Date Vanessa Christian APRN PCP - General Family Medicine 10/21/23 05/26/24 documented as of this encounter
--- OUTSIDE RECORDS SUMMARY | 2024-06-29 08:04 | XMS_ITS | Encounter Summary ---
Author Organization [facility] [place] [address] Care Team Providers Care Vest Maker Name Role Phone Vanessa Christian MAURI Primary Care Provider [phone] Reason for Visit * Auth/Cert (Routine) Specialty [...] MD [facility] [place] [address] [facility] Referral ID Status Reason Start Date Expiration Date Visits Re quested Visits Authorized [id number] 1 1 Encounter Details Date Type Department Care Team (Latest Contact Info) Description 02/03/2024 8:06 AM EDT - 02/03/2024 2:54 PM EDT Hospital Encounter [facility] [place] [address] Rima Dickinson MD [facility] [place] [address] Screening for cardiovascular condition; Aortic valve stenosis, [...] lbs Follow-up Visits Follow up with your hairspring vibrator in 2-4 weeks Access Site 'Black and Blue' and tenderness is expected during the first week Call if you noted a mass (lump) greater than the size of a ellis Call Office with any Questions and if you have any of the following Clarence Lane M.D Interventional Public Health Engineer Student Ministries Director #: [phone] * Attachments The following attachments cannot be [...] MD - 02/03/2024 11:48 AM EDT [facility] Interventional Cardiology Adult Pre-Procedure H&P Update: Cardiac Catheterization Karlos Anthony [id number] 1960 Chief Complaint: Aortic stenosis HPI: Mr. [...] chart Clarence Lane MD Interventional Public Health Engineer 02/03/24 11:48 AM documented in this encounter Miscellaneous Notes * Brief Op Note - Clarence Lane MD - 02/03/2024 12:51 PM EDT Preliminary Cardiac Catheterization Procedure Note: Patient Name: Karlos Anthony : [id number] MR#: [id number] Case Date: 02/03/2024 Student Ministries Director: Surgeon(s) and Role: * Saira Lua [...] PM EST Office Visit Cardiology at [address] [address] Neftali Ernandez MD [facility] [place] [address] Scheduled Orders Name Type Priority Associated Diagnoses [...] Other Narrative 02/12/2024 3:47 PM EDT ?[facility] ? Cardiac Catheterization/Intervention Report ? Patient Name: Patenaude, Karlos ? Procedure Date: 02/03/2024 ? A #: [id number] ? Primary Physician: Saira Lua ? Case #: [id number] ? File Name: [id number] ? Catheterization Order Number: [id number] ? [facility] ? Final Report [place], [place] ? Patient Name: ? Karlos Patenaude ? ID#: [id number] ? : ?1960 ? Procedure Date: ? [...] Note Saira Lua MD - 02/12/2024 [facility] Cardiac Catheterization/Intervention Report Patient Name: Karlos Anthony Procedure Date: 02/03/2024 A #: [id number] Primary Physician: Saira Lua Case #: [id number] File Name: [id number] Catheterization Order Number: [id number] [facility] FinalReport [place], [place] Patient Name: Karlos Anthony ID#:[id number] :1960 Procedure Date: February 03, 2024 Case [...] was designated as ASA Class III. The [facility] clinical frailty scale is 3: [...] (Bezet) 372 ms MUSE SYSTEM Calculated P [place] 59 degrees MUSE SYSTEM Calculated R [place] 34 degrees MUSE SYSTEM Calculated T [place] 63 degrees MUSE SYSTEM INTERPRETATION Sinus bradycardia [...] MD) documented in this encounter Care Teams Vest Maker Relationship Specialty Start Date End Date Vanessa Christian APRN PCP - General Family Medicine 10/21/23 05/26/24 documented as of this encounter
--- OUTSIDE RECORDS SUMMARY | 2024-06-29 08:05 | XMS_ITS | Encounter Summary ---
Author Organization [facility] [place] [address] Care Team Providers Care County Coroner Name Role Phone Vanessa Christian APRN Primary Care Provider [phone] Encounter Details Date Type Department Care Team (Late st Contact Info) Description 12/26/2023 Notes Only Cardiology at [address] [address] Neftali Ernandez MD [facility] [place] [address] Social History Tobacco Use Types Packs/Day Years [...] 1:37 PM EDT Echocardiogram images reviewed from [facility]. Indeed, the aortic valve appears severely stenotic. Cannotrule out bicuspid valve documented in this encounter Plan of Treatment Upcoming Encounters Date Type Department Care Team (Late st Contact Info) Description 11/30/2024 3:00 PM EST Office Visit Cardiology at [address] [address] Neftali Ernandez MD [facility] [place] [address] documented as of this encounter Visit Diagnoses Not on filedocumented in this encounter Care Teams County Coroner Relationship Specialty Start Date End Date Vanessa Christian APRN PCP - General Family Medicine 10/21/23 05/26/24 documented as of this encounter
--- OUTSIDE RECORDS SUMMARY | 2024-06-29 08:05 | XMS_ITS | Encounter Summary ---
Author Organization [facility] [place] [address] Care Team Providers Care Mold Stamper And Repairer Name Role Phone Vanessa Christian APRN Primary Care Provider [phone] Encounter Details Date Type Department Care Team (Late st Contact Info) Description 10/21/2023 Abstract Cardiology at [address] [place] [phone] Adam Mayes RN Social History Tobacco Use [...] PM EST Office Visit Cardiology at [address] [place] [address] Neftali Ernandez MD [facility] [place] [address] documented as of this encounter Visit Diagnoses Not on filedocumented in this encounter Care Teams Mold Stamper And Repairer Relationship Specialty Start Date End Date Vanessa Christian APRN PCP - General Family Medicine 10/21/23 05/26/24 documented as of this encounter
--- OUTSIDE RECORDS SUMMARY | 2024-06-29 08:05 | XMS_ITS | Encounter Summary ---
Author Organization [facility] [place] [address] Care Team Providers Care Ten Pin Bowling Centre Manager Name Role Phone Vanessa Christian APRN Primary Care Provider [phone] Encounter Details Date Type Department Care Team (Late st Contact Info) Description 10/21/2023 Abstract Cardiology at [address] [phone] Adam Mayes RN Social History Tobacco Use [...] PM EST Office Visit Cardiology at [address] [address] Neftali Ernandez MD [facility] [place] [address] documented as of this encounter Visit Diagnoses Not on filedocumented in this encounter Care Teams Ten Pin [place] Manager Relationship Specialty Start Date End Date Vanessa Christian APRN PCP - General Family Medicine 10/21/23 05/26/24 documented as of this encounter
--- OUTSIDE RECORDS SUMMARY | 2024-06-29 08:05 | XMS_ITS | Encounter Summary ---
Author Organization [facility] [place] [address] Care Team Providers Care Senior Automation Engineer Name Role Phone Vanessa Christian APRN Primary Care Provider [phone] Encounter Details Date Type Department Care Team [...] PM EST Office Visit Cardiology at [address] [place] [phone] Neftali Ernandez MD [facility] [place] [address] documented as of this encounter Visit Diagnoses Not on filedocumented in this encounter Care Teams Senior Automation Engineer Relationship Specialty Start Date End Date Vanessa Christian APRN PCP - General Family Medicine 10/21/23 05/26/24 documented as of this encounter
--- OUTSIDE RECORDS SUMMARY | 2024-06-29 08:05 | XMS_ITS | Encounter Summary ---
Author Organization [facility] [place] [address] Care Team Providers Care Nursing Consultant Name Role Phone Victor M Lafleur MD Primary Care Provider [phone] Encounter Details Date Type Department Care Team (Late st Contact Info) Description 09/26/2023 Abstract Cardiology at [address] [address] Karen Billy, RN Nonrheumatic aortic [...] PM EST Office Visit Cardiology at [address] [place] [address] Neftali Ernandez MD [facility] [place] [address] documented as of this encounter Visit Diagnoses Diagnosis Nonrheumatic aortic valve stenosis Aortic valve disorders Nevus of face Benign neoplasm of skin of other and unspecified parts of face documented in this encounter Care Teams Nursing Consultant Relationship Specialty Start Date End Date Victor M Lafleur MD PCP - General 10/02/13 10/20/23 documented as of this encounter
--- OUTSIDE RECORDS SUMMARY | 2024-06-29 08:05 | XMS_ITS | Encounter Summary ---
[place] [address] Care Team Providers Care Second Grade Teacher Name Role Phone Victor M Lafleur MD Primary Care Provider [phone] Reason for Visit * Reason Onset Date Comments Referral 09/20/2023 Encounter Details Date Type Department Care Team (Late st Contact Info) Description 09/20/2023 Telephone Cardiology at [address] [address] Karen Billy, recycling assistant Social History Tobacco Use Types Packs/Day Years [...] PM EST Office Visit Cardiology at [address] [place] [address] Neftali Ernandez MD [facility] [place] [address] documented as of this encounter Visit Diagnoses Not on filedocumented in this encounter Care Teams Second Grade Teacher Relationship Specialty Start Date End Date Victor M Lafleur MD PCP - General 10/02/13 10/20/23 documented as of this encounter
--- OUTSIDE RECORDS SUMMARY | 2024-06-29 08:05 | XMS_ITS | Encounter Summary ---
Author Organization [facility] Address [facility] Ivana lin[place]en [place] [id number] Care Team Providers Care Audit Manager Name Role Phone Vanessa Christian MAURI Primary Care Provider [phone] Reason for Referral * Consultation (Routine) - Closed Specialty Diagnoses / Procedures Referred By Contac t Referred To Contact Cardiac Surgery Diagnoses Nonrheumatic aortic valve stenosis significant - TAVR ( defers to Card Surg d/t age) Errol Loya MD [facility] [place] [address] Zak Farmer MD [facility] [place] [address] Referral ID Status Reason Start Date Expiration Date V isits Requested Visits Authorized [id number] Closed Consult, Test & Treat 10/21/2023 10/20/2024 1 1 Reason for Visit * Reason Comments Chest Pain Shortness of Breath Aortic Stenosis Encounter Details Date Type Department Care Team (Late st Contact Info) Description 10/21/2023 1:20 PM EST Office Visit Cardiology at [address] [address] Errol Loya MD [facility] [place] [address] Nonrheumatic aortic valve stenosis Social History Tobacco [...] Diagnosis Aortic stenosis 12/2022 TTE ([facility]): VITA 0.8-0.9 cm2 (MG 28 mmHg, DOI [...] the meantime will refer to T at [facility] for further evaluation. Logistics and preliminary review [...] the meantime will refer to T at [facility] for further evaluation. Logistics and preliminary review [...] PM EST Office Visit Cardiology at [address] [place] [phone] Errol Loya MD [facility] [place] [address] Scheduled Referrals Name Type Priority Associated Diagnoses Order Schedule Amb Referral to Structural Heart Outpatient Referral Routine Nonrheumatic aortic valve stenosis Ordered: 10/21/2023 documented as of this encounter Visit Diagnoses Diagnosis Nonrheumatic aortic valve stenosis Aortic valve disorders documented in this encounter Care Teams Audit Manager Relationship Specialty Start Date End Date Vanessa Christian APRN PCP - General Family Medicine 10/21/23 05/26/24 documented as of this encounter
== END 2024-07-06 23:59 | disposition home or self-care (01) ==
LOC: CR 08:01
PROVIDERS: PCP Nurse Practitioner Family; Visit Provider Internal Medicine Cardiovascular Disease
DX: I25.10 Atherosclerotic heart disease of native coronary artery without angina pectoris (principal); Z51.89 Encounter for other specified aftercare
CPT/HCPCS: S9472

== ENCOUNTER 2024-07-27 02:36 | Outpatient (CLI) | payer OTHER, SELFPAY ==
[2024-07-27 11:45] LABS: Creatine Kinase 133 U/L (39-308)
[2024-07-27 11:55] LABS: ALT 32 U/L (16-63); AST 20 U/L (15-37); Albumin 3.5 g/dL (3.4-5.0); Alkaline Phosphatase 84 U/L (46-116); Anion Gap 5.1 mmol/L (3-11); BUN 20 mg/dL (7-18); Bilirubin, Total 0.77 mg/dL (0.2-1.0); CO2 30.9 mmol/L (21.0-32.0); Calcium 9.2 mg/dL (8.5-10.1); Calculated LDL 64 mg/dL (<100); Chloride 105 mmol/L (98-107); Cholesterol 131 mg/dL (<200); Estimated GFR 83.52 (mL/min/1.73m2); Glucose 83 mg/dL (74-106); HDL Cholesterol 35 mg/dL (40-60); Potassium 4.8 mmol/L (3.5-5.1); Sodium 141 mmol/L (136-145); Total Protein 6.8 g/dL (6.4-8.2); Triglyceride 162 mg/dL (<150)
== END 2024-07-27 02:37 | disposition home or self-care (01) ==
LOC: LBO 02:36
PROVIDERS: PCP Nurse Practitioner Family; Referring Provider Nurse Practitioner Family; Visit Provider Nurse Practitioner Family
DX: I25.810 Atherosclerosis of coronary artery bypass graft(s) without angina pectoris (principal); E78.5 Hyperlipidemia, unspecified
CPT/HCPCS: 36415; 80053; 80061; 82550

== ENCOUNTER 2024-07-27 10:49 | Outpatient (CLI) | payer OTHER, SELFPAY ==
--- NOTE | 2024-07-27 13:48 | DI.RAD_ITS ---
Exam(s) XR KNEE LT 3V AP,LAT,NICOLETTE EXAM: XR KNEE LT 3V AP,LAT,NICOLETTE CLINICAL HISTORY: left knee pain chronic, M25.562. TECHNIQUE: 2D digital imaging was performed. COMPARISON: No exams were available for comparison FINDINGS: 3 views No evidence of fracture nor prominent joint effusion. There is mild-moderate narrowing of the medial compartment. Compartment exhibits normal height. Patellofemoral compartment unremarkable. On the lateral view there is a small calcific density seen on the inner aspect of the patellar ligament of q uestionable significance. Vascular calcification is noted posteriorly in the popliteal artery. IMPRESSION: Moderate narrowing of the medial compartment DATA REPOSITORY: RADIATION DOSE DELIVERED:
== END 2024-07-27 11:09 ==
LOC: DI 10:49
PROVIDERS: PCP Nurse Practitioner Family; Visit Provider Nurse Practitioner Family
DX: M25.562 Pain in left knee (principal)
CPT/HCPCS: 73562

== ENCOUNTER 2024-08-06 09:54 | Outpatient (RCR) | payer SELFPAY ==
--- OUTSIDE RECORDS SUMMARY | 2024-07-07 13:17 | XMS_ITS | Encounter Summary ---
Author Organization Counts [facility] Address [facility] [place] [address] Care Team Providers Care Sailor Name Role Phone Vanessa Christian MAURI Primary Care Provider [phone] Encounter Details Date Type Department Care Team [...] PM EST Office Visit Cardiology at [address] [address] Neftali Ernandez MD [facility] [place] [address] documented as of this encounter Visit Diagnoses Not on filedocumented in this encounter Care Teams Sailor Relationship Specialty Start Date End Date Vanessa Christian APRN [address] [place] [address] PCP - General Family Medicine 05/27/24 documented as of this encounter
--- OUTSIDE RECORDS SUMMARY | 2024-07-07 13:17 | XMS_ITS | Encounter Summary ---
Author Organization [facility] Address [address] [place] [address] Care Team Providers Care Ocean Export Coordinator Name Role Phone Vanessa Christian Lane MONCADA Primary Care Provider Encounter Details Date Type Department Care Team (Late st Contact Info) Description 10/24/2023 Lab Requisition [facility] Pathology & Laboratory Medicine - [address] [address] Oscar Nichole MD [address] [place] [id number] Factitial dermatitis Social History Tobacco Use Types [...] management options, if applicable. 10/28/2023 11:24 EST [facility] Final Diagnosis A. SKIN OF ADVENTISM, LEFT, SHAVE BIOPSY: - Seborrheic keratosis, pigmented. 10/28/2023 11:24 EST [facility] Attestation By the signature below, the attending physician certifies that they have 1) personally conducted a gross and/or microscopic examination of the described specimen(s), and/or personally interpreted the results of laboratory testing of the described specimen(s), and 2) personally rendered or confirmed the above diagnosis. 10/28/2023 11:24 [facility] at [address] Microscopic Description The stratum corneum is thickened by compact and basketweave orthokeratosis with formation of horn pseudocysts. The epidermis is acanthotic with formation of broad and anastomosing trabeculae. The trabeculae are composed of basaloid keratinocytes with round uniform nuclei. The keratinocytes have a variable amount of melanin pigment. 10/28/2023 11:24 [facility] Clinical History Pigmented 2 cm patch; clinical diagnosis code: L98.1 10/28/2023 11:24 [facility] Gross Description A. Received in formalin labelled with proper patient identification (initials P, A) and left judaism is a shave biopsy of an irregular [...] Nora Anderson 10/25/2023 8:47 10/28/2023 11:24 [facility] Performing Lab [facility] 10/28/2023 11:24 [facility] Scanned Images 10/28/2023 11:24 [facility] Tissue SPECIMEN FROM SKIN / Unknown 10/24/2023 14:30 EST 10/24/2023 22:04 EST Oscar Nichole MD PATHOLOGY ORDERABLES [facility] [address] [place] [address] documented in this encounter Visit Diagnoses Diagnosis Factitial dermatitis Dermatitis factitia (artefacta) documented in this encounter Care Teams Ocean Export Coordinator Relationship Specialty Start Date End Date Vanessa Christian NP [address] [place] [address] PCP - General Family Medicine - Primary Care 10/07/23 documented as of this encounter
--- OUTSIDE RECORDS SUMMARY | 2024-07-07 13:17 | XMS_ITS | Encounter Summary ---
Author Organization [facility] Address [facility] [place] [address] Care Team Providers Care Staff Forester Name Role Phone Vanessa Christian MAURI Primary Care Provider [phone] Encounter Details Date Type Department Care Team (Latest Contact Info) Description 05/20/2024 Travel Social History Tobacco Use Types Packs/Day Years Used Date Smoking Tobacco: Former Cigarettes Smokeless Tobacco: Never Comments:Quit 15 + years ago Alcohol Use Standard Drinks/Week Comments Yes 0 (1 standard drink = 0.6 oz pur e alcohol) rare [facility] Utilities Answer Date [...] PM EST Office Visit Cardiology at [address] [phone] Neftali Ernandez MD [facility] [place] [address] documented as of this encounter Visit Diagnoses Not on filedocumented in this encounter Care Teams Staff Forester Relationship Specialty Start Date End Date Vanessa Christian APRN PCP - General Family Medicine 10/21/23 05/26/24 documented as of this encounter
--- OUTSIDE RECORDS SUMMARY | 2024-07-07 13:17 | XMS_ITS | Encounter Summary ---
Author Organization [facility] Address [facility] [place] [address] Care Team Providers Care Presidential Support Specialist Name Role Phone Vanessa Christian MAURI Primary Care Provider [phone] Encounter Details Date Type Department Care Team (Latest Contact Info) Description 03/12/2024 1:30 PM EDT - 03/12/2024 11:59 PM EDT Hospital Encounter XRay at [address] [place] [address] Coronary artery disease, unspecified vessel or lesion type, unspecified whether angina present, unspecified whether lytton or transplanted heart Discharge Disposition: Home Social History Tobacco Use Types Packs/Day Years Used Date Smoking Tobacco: Former Cigarettes Smokeless Tobacco: Never Comments:Quit 15 + years ago Alcohol Use Standard Drinks/Week Comments Yes 0 (1 standard drink = 0.6 oz pur e alcohol) rare [facility] Utilities Answer Date Recorded In the past 12 months has e [employer], gas, oil, or water [employer] threatened to shut off services in your [...] PM EST Office Visit Cardiology at [address] [place] [address] Neftali Ernandez MD [facility] [place] [address] documented as of this encounter Procedures Procedure Name Priority Date/Time Associated Diagnosis Comments XR CHEST PA AND LATERAL Routine 03/12/2024 1:42 PM EDT Coronary artery disease, unspecified vessel or lesion type, unspecified whether angina present, unspecified whether lytton or transplanted heart documented in this encounter Results * XR Chest PA & Lateral (Generic) (03/12/2024 1:42 PM EDT) WORKSTATION ID [id number] RAD Anatomical Region Laterality Modality Chest N/A [...] contact the health post acute care nurse that requested your imaging first. ? 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 Zak Farmer MD IMG DX ORDERABLES documented in this encounter Visit Diagnoses Diagnosis Coronary artery disease, unspecified vessel or lesion type, unspecified whether angina present, unspecified whether lytton or transplanted heart documented in this encounter Care Teams Presidential Support Specialist Relationship Specialty Start Date End Date Vanessa Christian, MAURI PCP - General Family Medicine 10/21/23 05/26/24 documented as of this encounter
--- OUTSIDE RECORDS SUMMARY | 2024-07-07 13:17 | XMS_ITS | Referral Summary ---
Author Organization [facility] Address [address] [place] [address] Care Team Providers Care Snack Steward Name Role Phone Filidayna Vanessa Sherman NP Primary Care Provider [phone] Social History Tobacco Use Types Packs/Day Years Used Date Smoking Tobacco: Never Assessed Sex and Gender Information Value Date Recorded Sex Assigned at Not on file Gender Identity Not on file Sexual Orientation Not on file Plan of Treatment Not on file Care Teams Snack Steward Relationship Specialty Start Date End Date Vanessa Christian NP [address] [place] [address] PCP - General Family Medicine - Primary Care 10/07/23
--- OUTSIDE RECORDS SUMMARY | 2024-07-07 13:17 | XMS_ITS | Encounter Summary ---
Author Organization [facility] [place] [address] Care Team Providers Care Head Grease Maker Name Role Phone Vanessa Christian MAURI Primary Care Provider [phone] Encounter Details Date Type Department Care Team (Latest Contact Info) Description 03/12/2024 Travel Social History Tobacco Use Types Packs/Day Years Used Date Smoking Tobacco: Former Cigarettes Smokeless Tobacco: Never Comments:Quit 15 + years ago Alcohol Use Standard Drinks/Week Comments Yes 0 (1 standard drink = 0.6 oz pur e alcohol) rare [facility] Utilities Answer Date Recorded In [...] PM EST Office Visit Cardiology at [address] [phone] Neftali Ernandez MD [facility] [place] [address] documented as of this encounter Visit Diagnoses Not on filedocumented in this encounter Care Teams Head Grease Maker Relationship Specialty Start Date End Date Vanessa Christian APRN PCP - General Family Medicine 10/21/23 05/26/24 documented as of this encounter
--- OUTSIDE RECORDS SUMMARY | 2024-07-07 13:17 | XMS_ITS | Clinical Summary ---
Author Organization [facility] Address [address] [place] [address] Care Team Providers Care Hay Baler Name Role Phone Vanessa Christian NP Primary Care Provider [phone] Social History Tobacco Use Types Packs/Day Years [...] COVID-19 Vaccine (2022- season) 2024 Care Teams Hay Baler Relationship Specialty Start Date End Date Vanessa Christian NP [address] [place] [phone] PCP - General Family Medicine - Primary Care 10/07/23
--- OUTSIDE RECORDS SUMMARY | 2024-07-07 13:17 | XMS_ITS | Encounter Summary ---
Author Organization [facility] Address [facility] [place] [address] Care Team Providers Care Trekking Guide Name Role Phone Vanessa Christian Lane DOTSON Primary Care Provider [phone] Reason for Visit * Reason Comments Coronary Artery Disease Aortic Stenosis Encounter Details Date Type Department Care Team (Latest Contact Info) Description 05/27/2024 11:00 AM EDT Office Visit Cardiology at [address] [place] [phone] Neftali Ernandez MD [facility] [place] [address] ASCVD (arteriosclerotic cardiovascular disease); Nonrheumatic aortic valve stenosis Social History Tobacco Use Types Packs/Day Years Used Date Smoking Tobacco: Former Cigarettes Smokeless Tobacco: Never Comments:Quit 15 + years ago Alcohol Use Standard Drinks/Week Comments Yes 0 (1 standard drink = 0.6 oz pur e alcohol) rare [facility] Utilities Answer Date Recorded In the past 12 months has e [employer], gas, oil, or water [employer] threatened to shut off services in your [...] PM EST Office Visit Cardiology at [address] [address] Neftali Ernandez MD [facility] [place] [address] documented as of this encounter Visit Diagnoses Diagnosis ASCVD (arteriosclerotic cardiovascular disease) Unspecified cardiovascular disease Nonrheumatic aortic valve stenosis Aortic valve disorders documented in this encounter Care Teams Trekking Guide Relationship Specialty Start Date End Date Vanessa Christian APRN [address] [place] [address] PCP - General Family Medicine 05/27/24 documented as of this encounter
--- OUTSIDE RECORDS SUMMARY | 2024-07-07 13:17 | XMS_ITS | Encounter Summary ---
Author Organization [facility] Address [facility] [place] [address] Care Team Providers Care Air Pumper Name Role Phone Gino Vanessa Lane DOTSON Primary Care Provider [phone] Encounter Details Date Type Department Care Team (Late st Contact Info) Description 02/24/2024 Orders Only Cardiac Surgery [facility] [place] [phone] Trudi Lester APRN [facility] [place] [address] Social History Tobacco Use Types Packs/Day Years Used Date Smoking Tobacco: Former Cigarettes Smokeless Tobacco: Never Comments:Quit 15 + years ago Alcohol Use Standard Drinks/Week Comments Yes 0 (1 standard drink = 0.6 oz pur e alcohol) rare [facility] Utilities Answer Date Recorded In the past 12 months has e [employer]), gas, oil, or water [employer] threatened to shut off services in [...] PM EST Office Visit Cardiology at [address] [place] [address] Neftali Ernandez MD [facility] [place] [address] documented as of this encounter Visit Diagnoses Not on filedocumented in this encounter Care Teams Air Pumper Relationship Specialty Start Date End Date Vanessa Christian APRN PCP - General Family Medicine 10/21/23 05/26/24 documented as of this encounter
--- OUTSIDE RECORDS SUMMARY | 2024-07-07 13:17 | XMS_ITS | Encounter Summary ---
Author Organization [facility] Address [facility] [place] [address] Care Team Providers Care Top Former Name Role Phone Vanessa Christian RESOURCE TEACHER Primary Care Provider Encounter Details Date Type Department Care Team (Late st Contact Info) Description 03/12/2024 2:40 PM EDT Office Visit [place] [phone] Zak Farmer MD [facility] CARDIOTHORAC[place] [address] Coronary artery disease, unspecified vessel or lesion type, unspecified whether angina present, unspecified whether cheesh-na or transplanted heart Social History Tobacco Use Types Packs/Day Years Used Date Smoking Tobacco: Former Cigarettes Smokeless Tobacco: Never Comments:Quit 15 + years ago Alcohol Use Standard Drinks/Week Comments Yes 0 (1 standard drink = 0.6 oz pur e alcohol) rare [facility] Utilities Answer Date Recorded In the past 12 months has e [employer], gas, oil, or water [employer] threatened to shut off services in your [...] 2:40 PM EDT To: MD Vanessa Coles, RESOURCE TEACHER Re; Karlos Santa ( 1960) We had [...] office. Best personal regards, Zak Farmer MD [phone] documented in this encounter Plan of Treatment Upcoming Encounters Date Type Department Care Team (Late st Contact Info) Description 11/30/2024 3:00 PM EST Office Visit Cardiology at [address] [place] [address] Neftali Ernandez MD [facility] [place] [place] [address] documented as of this encounter Procedures Procedure Name Priority Date/Time Associated Diagnosis Comments EKG 12-LEAD Routine 03/12/2024 2:35 PM EDT Coronary artery disease, unspecified vessel or lesion type, unspecified whether angina present, unspecified whether cheesh-na or transplanted heart documented in this encounter Results * EKG 12 Lead (03/12/2024 2:35 PM EDT) Ventricular rate 59 BPM MUSE SYSTEM Atrial Rate 59 BPM MUSE SYSTEM P-R Interval 190 ms MUSE SYSTEM QRS Duration 92 ms MUSE SYSTEM Q-T Interval 406 ms MUSE SYSTEM QTC Calculated (Bezet) 401 ms MUSE SYSTEM Calculated P Wilber -12 degrees MUSE SYSTEM Calculated R Wilber 24 degrees MUSE SYSTEM Calculated T Wilber 74 degrees MUSE SYSTEM INTERPRETATION Sinus bradycardia T wave abnormality, consider anterior ischemia Abnormal ECG When compared with ECG of 17-FEB-2024 13:24, [place] interval has decreased T wave inversion now evident in Anterior leads Confirmed by Paul Guzman ([id number]) on 03/15/2024 8:36:23 AM MUSE SYSTEM 03/12/2024 2:35 PM EDT 03/15/2024 8:36 AM EDT Zak Farmer MD ECG ORDERABLES MUSE SYSTEM documented in this encounter Visit Diagnoses Diagnosis Coronary artery disease, unspecified vessel or lesion type, unspecified whether angina present, unspecified whether cheesh-na or transplanted heart documented in this encounter Care Teams Top Former Relationship Specialty Start Date End Date Vanessa Christian APRN PCP - General Family Medicine 10/21/23 05/26/24 documented as of this encounter
--- OUTSIDE RECORDS SUMMARY | 2024-07-07 13:17 | XMS_ITS | Clinical Summary ---
Author Organization [facility] Address [facility] [place] [address] Care Team Providers Care Blanket Winder Operator Name Role Phone Vanessa Christian Lane [...] the meantime will [place] [facility] [place]. Logistics and preliminary review of TONY were reviewed with patient. - Refer to S[facility] Hypertension 08/14/2023 Resolved Problems Problem Noted Date Diagnosed Date Resolved Date Nevus of face 09/26/2023 05/27/2024 Overview (09/26/2023): Right rastafari Chest pressure 08/14/2023 10/21/2023 SILVA (dyspnea on exertion) 08/14/2023 HLD (hyperlipidemia) 08/14/2023 024 Encounters Date Type Department Care Team Description 05/27/2024 11:00 AM EDT Office Visit Cardiology at [address] [place] [address] Neftali Ernandez MD ASCVD (arteriosclerotic cardiovascular disease); Nonrheumatic aortic valve stenosis 05/27/2024 Travel 05/20/2024 Travel from Last 3 Months Social History Tobacco Use Types Packs/Day Years Used Date Smoking Tobacco: Former Cigarettes Smokeless Tobacco: Never Comments:Quit 15 + years ago Alcohol Use Standard Drinks/Week Comments Yes 0 (1 standard drink = 0.6 oz pur e alcohol) rare [facility] Utilities Answer Date Recorded In [...] PM EST Office Visit Cardiology at [address] [place] [address] Neftali Eranndez MD [facility] [place] [address] Health Maintenance Due Date Last Done Comments CT Colonography 1959 Colonoscopy 1959 Colorectal Cancer Screening 1959 FIT DNA 1959 FIT 1959 Sigmoidoscopy (10 year) with FIT yearly 1959 Sigmoidoscopy 1959 HIV screen 1977 Hepatitis C Screening 1977 Tetanus/Diphtheria/Pertussis Vaccines (1 - Tdap) 07/05 Zoster vaccine (1 of 2) 2009 Advance Directive 2014 Covid-19 Vaccine (1 - season) 2024 Influenza (Flu) vaccine (1 o f 1 - Influenza standard series) 06/07/2024 Medical Devices Implanted Type Area Poker Dealer Device Identifier Shelf Expiration Date Model / Serial / Lot Cable,Cut,Edg ,Blnt,Ss,3tpr ([id number]) - [id number] Implanted:Qty : 1 on 02/17/2024 by Zak Farmer MD at [facility] IMPLANTS Midline: Chest [employer] - [id number] 09/02/2028 [id number] / / [id number] Valve Coronary Aortic 23mm Tissue Trnscath [employer] Inspiris ([id number]) (Autore[employer]) - [id number] Implanted:Qty : 1 on 02/17/2024 by Zak Farmer MD at [facility] IMPLANTS Heart [employer] - TSAI LI 09/15/2027 [id number] / [id number] / Procedures Procedure Name Priority Date/Time Associated [...] (Bezet) 367 ms MUSE SYSTEM Calculated P Gooding 12 degrees MUSE SYSTEM Calculated R Gooding 27 degrees MUSE SYSTEM Calculated T Gooding 62 degrees MUSE SYSTEM INTERPRETATION Sinus bradycardia with 1st degree A-V block Otherwise normal ECG When compared with ECG of 12-MAR-2024 14:35, T wave inversion no longer evident in Anterior leads Confirmed by MD Ernandez Daniel ([id number]) on 06/01/2024 8:36:17 AM MUSE SYSTEM 05/27/2024 [...] Status decision made by: Patient Care Teams Blanket Winder Operator Relationship Specialty Start Date End Date Vanessa Christian, MA[address] [place] [address] PCP - General Family Medicine 05/27/24
--- OUTSIDE RECORDS SUMMARY | 2024-07-07 13:18 | XMS_ITS | Encounter Summary ---
[place] [address] Care Team Providers Care Manager Employee Relations Name Role Phone Aparna Jordan MAURI Primary Care Provider [phone] Reason for Referral * Diagnostic Test (Routine) - New Request Specialty Diagnoses / Procedures Referred By Contac t Referred To Contact Cardiology Diagnoses S/P AVR Procedures Echocardiogram Transthoracic Neftali Menon PA [facility] [place] [address] [facility] [place] [address] Referral ID Status Reason Start Date Expiration Date Visits Requested Visits Authorized [id number] New Request Specialty Service Requested 02/24/2024 02/23/2025 1 1 * Consultation (Routine) - Authorized Specialty Diagnoses / Procedures Referred By Contac t Referred To Contact Cardiology Diagnoses S/P AVR Hayder Graham MD [facility] [place] [address] Cardiac Rehab, [facility] [address] [place] [address] [place] [address] Referral ID Status Reason Start Date Expiration Date Visits Requested Visits Authorized [id number] Authorized Consult, Test & Treat 02/24/2024 08/22/2024 36 36 * Home Health Care (Routine) - Authorized Specialty Diagnoses / Procedures Referred By Sixto mendoza Referred To Contact Diagnoses S/P AVR Hayder Graham MD [facility] [place] [address] Referral ID Status Reason Start Date Expiration Date Visits Requested Visits Authorized [id number] Authorized Consult, Test & Treat 02/24/2024 08/22/2024 [...] ARTERIAL GRAFT (WRVU 7.93) Hayder Graham MD [facility] [place] [address] [facility] Referral ID Status Reason Start Date Expiration Date Visits Re quested Visits Authorized [id number] 1 1 Encounter Details Date Type Department Care Team (Latest Contact Info) Description 02/17/2024 5:43 AM EDT - 02/24/2024 11:23 AM EDT Hospital Encounter Heart and Vascular Unit Level 4 [place] [address] Hayder Graham MD [facility] [place] [address] S/P AVR (Primary Dx); Aortic valve stenosis, [...] 1-2 weeks. Patient to follow up with Educator Senior Clinical, Neftali Ernandez MD , in 2 weeks. Patient to follow up with Cardiac Surgeon, Dr. Hayder Graham, with a chest x-ray, EKG, and Echo. Inpatient Provider Contact Information: [facility] [address] FAX [phone] Discharge Diagnoses (Hospital Problems) Primary Diagnoses: /CAD [...] 33.75) performed by Hayder Graham MD at [facility] MAIN OR PRO CABG, ARTERY-VEIN, TWO N/A 02/17/2024 @CABG, TWO VENOUS GRAFTS & ARTERIAL GRAFT (WRVU 7.93) performed by Hayder Graham MD at [facility] MAIN OR PRO ENDOSCOPY W/VIDEO-ASST VEIN HARVEST, CABG Left 02/17/2024 ENDOSCOPIC HARVEST VEIN(S) FOR CABG (WRVU 0.31) performed by Hayder Graham MD at [facility] MAIN OR PRO REPLACEMENT PROSTHETIC AORTIC VALVE OPEN W CARDIOPULMONARY BYPASS HOMOGRF/STENT N/A 02/17/2024 @REPLACE AORTIC VALVE, OPEN, W\CPB, W\PROSTHETIC VALVE (WRVU 41.32) performed by Hayder Graham MD at [facility] MAIN OR Prior To Admission Medications [...] insufficiency. He has glaucoma. He used to [employer] until about 15 years ago. He has undergone prior herniorrhaphy. 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 Major Procedures/Operations: 02/17/24 s/p avr/cabgx3 CABG x 3 JOSE->LAD SVG->dRCA SVG->OM1 EVH from LLE AVR with a 23 mm Inspiris Bioprosthesis Hospital Course: Karlos Garcia was admitted to [facility] on 02/17/2024 via the Same [...] Hayder Graham and/or the Cardiac Surgery Physician Cutter Tender Team may be reached at . [...] Please refer to the card with the [place] [employer] Guidelines for more information. You [...] Dr. Hayder Graham. You may use a [place] Track or treadmill but avoid any pulling [...] should resume a low fat, low cholesterol, [place] [employer] Diet. Driving: No driving until [...] while being managed by your PCP and/or Educator Senior Clinical. For future medication refills, please refer to your PCP and/or Educator Senior Clinical after your discharge from our service. Thank you REMOVE CHEST TUBE SUTURES ON OR AFTER 03/02/24 Home oxygen therapy: N/A Follow up appointments: You should follow up with your PCP, Aparna Jordan APRN, in 1-2 weeks. Our office will schedule an appointment with your Educator Senior Clinical, Neftali Ernandez MD , in 2 weeks. You have an appointment with your Cardiac Surgeon, Dr. Hayder Graham, 4 weeks with a chest x-ray, EKG, and Echo before your appointment. Cardiac Rehabilitation: Karlos Garcia was seen regarding participation in the outpatient Phase 2Cardiac Rehabilitation at [facility]. The patient agrees to a referral to this program. The referral will be sent at discharge and the patient should be contacted by the Program within 1- 2 weeks from discharge. Future Appointments and Orders Future Orders Complete By Expires Echocardiogram Transthoracic [82944 CPT(R)] 03/26/2024 09/25/2024 Process Instructions: Scheduling Instructions: Questions: Where will study be performed?: [facility] [place] [place] Clinics Does the patient have Congenital Heart Disease?: Does patient require sedation?: Sedation rationale: XR Chest PA & Lateral (Generic) [83779 13492 Custom] 03/26/2024 09/25/2024 Process Instructions: Scheduling Instructions: Questions: Portable exam?: Reason for exam and clinical history: s/p avr/cabg Clinical information / jerome questions for radiologist: Stat read required?: Date of injury if applicable: Requested Time: Where will study be performed?: [facility] Radiology Referral to Cardiac Rehab [XGV348 Custom] As directed Process Instructions: If no progress note charted, please enter Clinical details in comments. Scheduling Instructions: Questions: My question or request is: s/p AVR/CABG. Cardiac rehab at [facility]. Referral to Home Health [REF34 Custom] As directed Process Instructions: If no progress note charted, please enter Clinical details in comments. Scheduling Instructions: Comments: Please evaluate Karlos Garcia for admission to Home Health. 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 [address] [place] [address] RN orders: Cardiopulmonary assessment, incisional assessment, assess [...] issues please call the Cardiology Office at [phone] FOR MEDICARE ONLY: (please delete this section [...] APRN [address] / [place] [address] . All VNA agencies which cover the area of patient's residence have been reviewed, either verbally or in writing, and patient/family have chosen the home health care agency noted. Questions: Disciplines Requested: Nursing Physical Therapy Arrangements for VNA/home care: As above. Signed: NEFTALI MENON PA-C [facility] [address] FAX [phone] Date: 02/24/2024 CC: Aparna Jordan, MAURI Jordan, Aparna Sherman APRN [address] [place] [address] documented in this encounter Discharge Instructions * [...] Hayder Graham and/or the Cardiac Surgery Physician Cutter Tender Team may be reached at . [...] Please refer to the card with the [place] [employer] Guidelines for more information. You [...] Dr. Hayder Graham. You may use a [place] Track or treadmill but avoid any pulling [...] should resume a low fat, low cholesterol, [place] [employer] Diet. Driving: No driving until [...] while being managed by your PCP and/or Educator Senior Clinical. For future medication refills, please refer to your PCP and/or Educator Senior Clinical after your discharge from our service. Thank you REMOVE CHEST TUBE SUTURES ON OR AFTER 03/02/24 Home oxygen therapy: N/A Follow up appointments: You should follow up with your PCP, Aparna Jordan APRN, in 1-2 weeks. Our office will schedule an appointment with your Educator Senior Clinical, Neftali Ernandez MD , in 2 weeks. You have an appointment with your Cardiac Surgeon, Dr. Hayder Graham, 4 weeks with a chest x-ray, EKG, and Echo before your appointment. Cardiac Rehabilitation: Karlos Garcia was seen regarding participation in the outpatient Phase 2Cardiac Rehabilitation at [facility]. The patient agrees to a referral to [...] 0600 and on the weekends please page [phone]. * Eric Barahona PA - 02/23/2024 9:27 [...] 0600 and on the weekends please page [phone]. * Tiffanie Owens PTA - 02/22/2024 2:48 PM EDT Physical Therapy [...] d/c for 10 days. Pt was indep [employer]. He drives. He works Precautions/Special Considerations: STERNAL [...] LRAD and supervision Time IN / OUT: 4718-2892 Total Time: 30 minutes; TEFx2 Tiffanie Owens Pager: [phone] Physical Therapy Inpatient Rehabilitation Department * Romeo [...] 0600 and on the weekends please page [phone]. * Kelley Hinson, [employer] [place]ER - 02/21/2024 10:15 AM EDT Physical Therapy [...] d/c for 10 days. Pt was indep [employer]. He drives. He works Precautions/Special Considerations: STERNAL [...] LRAD and supervision Time IN / OUT: 2898-0970 Total Time: 25 minutes; TEF 2 Kelley Hinson PTA Pager: [phone] Physical Therapy Inpatient Rehabilitation Department * Louisa [...] 0600 and on the weekends please page [phone]. * Kelley Hinson PTA - 02/20/2024 3:32 [...] at that time Kelley Hinson PTA Pager: [phone] Physical Therapy Inpatient Rehab Department * Louisa [...] 0600 and on the weekends please page [phone]. * Maris Benavides, PT - 02/19/2024 11:22 [...] d/c for 10 days. Pt was indep [employer]. He drives. He works. Precautions/Special Considerations: STERNAL [...] incision CDI. Musculoskeletal: ROM: WFL Strength: Danielle HOBBS's /5 Bed Mobility: Supine ->Sit: min assist for [...] outlined inthis evaluation. MARIS BENAVIDES, PT Pager: [phone] Physical Therapy Inpatient Rehabilitation Department Time IN / OUT: 9889-6471 Total Time: 38 (eval) minutes; * Antonio [...] 0600 and on the weekends please page [phone]. * Minnie Begum PA - 02/18/2024 8:25 [...] 0600 and on the weekends please page [phone]. * Kim Ha RCP - 02/17/2024 2:25 [...] plan since last visit. Hayder Graham MD [phone] Source Note - Hayder Graham MD - [...] insufficiency. He has glaucoma. He used to [employer] until about 15 years ago. He has [...] given written informed consent. Hayder Graham MD [phone] * Hayder Graham MD - 02/17/2024 7:00 [...] given written informed consent. Hayder Graham MD [phone] documented in this encounter Miscellaneous Notes * [...] information for follow-up Home Health & Hospice, [address] [place] [address] Cardiac Rehab, [address] [place] [address] Transportation: family or friend will provide Functional status prior to admission: Independent Home Environment: Others in the home: alone. Current Living Arrangements: home/apartment/condo. Accessibility Concerns:a few steps to enter 1 floor home. Current Functional Ability: Assistive Person and Equipment DME used at home: none DME Needed at Discharge: N/A Patient is insured through: Primary Insurance: [employer] Payor: [facility] / Plan: [facility] PPO / Product Type: [...] pain managed with scheduled Tylenol. Worked with [employer]. Ambulated in the roque multiple times during [...] anticipated Patient is insured through: Primary Insurance: [employer] Payor: [facility] / Plan: [facility] PPO / Product Type: [...] Services: Physical Therapy, Registered Nurse Agency Referrals: [facility]. [address] [place] [address] Transportation: family or friend will provide Barriers to discharge: Discharge planning Plan going forward: Service Care Management will continue to follow and assist with discharge planning and coordination of care as indicated. Anticipated Date of Discharge: 02/22/2024 Rhett Bell RN RN/CM - Cellphone: [phone] Pager: [phone] Covering Service RN/CM * Plan of Care [...] Yang RN - 02/19/2024 10:44 AM EDT [facility] [place] CARD[facility]AC REHABILITATION Karlos Garcia was seen today regarding participation in the outpatient Phase 2 Cardiac Rehabilitation at [facility]. The patient agrees to a referral to [...] 180 days) Any patient receiving care in [place] must abide by [place] law. The hierarchy [...] steady place to sleep or slept in [facility] (including now)?: No In the past 12 months has the [employer], gas, oil, or water [employer] threatened to shut off services in your [...] [address] [facility] [address] Physical address: [address] [facility], [address] Social & Family Supports: All names listed [...] noted Health/Prescription Coverage: Primary Insurance: [facility] Payor: [facility] / Plan: [facility] PPO / Product Type: *No Product type* / Secondary Insurance: N/A ; Prescription Coverage: Yes Preferred Pharmacy: [id number] [address] [place] Status: Patient is a : No Primary Care Provider confirmed: Aparna Jordan, DIVIDEND DEPOSIT VOUCHER CLERK [phone] Patient/Caregiver Goals of Treatment: dc to home Potential Needs for Transition of Care: home health care Agency Referrals: I have met with the patient to: discuss discharge planning needs. provide the [facility] [place], Office of Care Management letter from the Obstetrics/Gynecology Nurse pertaining to rehab referrals. provide a letter describing our affiliations within the [facility] and educate about their right to choose where referrals are sent. provide a list of Home Health Agencies / Durable Medical Equipment vendors which serve their preferred geographic area. provided patient with [facility] Star Quality Rating handout. They have requested referrals to: [facility]. [address] [place] [address] Note routed to a Senior Reliability Engineer who will communicate referrals to facilities [...] Reina Greene RN CM, BSN, CMGT- Ext [phone] * Plan of Care - Binta Trinidad [...] Operative Note Patient Name: Karlos Garcia : [id number] MR#: [id number] Case Date: 02/17/2024 Surgeon: Surgeon(s) and Role: * Hayder Graham MD - Primary * Neftali Menon PA - Physician Cutter Tender Preoperative diagnosis: CAD Postoperative diagnosis: CAD, [...] mL Drains: Mediastinal and Left pleural Disposition: [facility] Condition: doing well without problems Attestation: Case Date: 02/17/2024 I performed this procedure without the involvement of a resident. HAYDER GRAHAM MD 02/17/2024 * Op Note - Hayder Graham MD - 02/17/2024 8:20 AM EDT [facility] [place] Operative Note Patient Name: Karlos Garcia : [id number] MR#: [id number] Case Date: 02/17/2024 Surgeon: Surgeons and Role: * Hayder Graham MD - Primary * Neftali Menon PA - Physician Cutter Tender Preoperative diagnosis: CAD Postoperative diagnosis: CAD, [...] mL Drains: Mediastinal and Left pleural Disposition: [facility] Procedure Description: The patient was brought [...] PM EST Office Visit Cardiology at [address] [place] [address] Neftali Ernandez MD [facility] [place] [address] Scheduled Orders Name Type Priority Associated Diagnoses [...] Aortic Valve Open W Cardiopulmonary Bypass Homogrf/Stent (51330) Yes 02/17/2024 7:28 AM EDT CAD Cabg, Artery-Vein, Two (32858) Yes 02/17/2024 7:28 AM EDT CAD Cabg, Arterial, Single (33330) Yes 02/17/2024 7:28 AM EDT CAD Endoscopy W/Video-Asst Vein [place], Cabg (36254) Yes 02/17/2024 7:28 AM EDT CAD POCT [...] MD CHEMISTRY ORDERABLE S [facility] [place] [address] * (ABNORMAL) Basic Metabolic Panel (non-fasting) (02/23/2024 [...] Carpio MD CHEMISTRY ORDERABLES [facility] [place] [address] * Potassium (02/22/2024 4:30 AM EDT) Potassium [...] MD CHEMISTRY ORDERABLE S [facility] [place] [address] * (ABNORMAL) Basic Metabolic Panel (non-fasting) (02/21/2024 [...] Carpio MD CHEMISTRY ORDERABLES Performing Organization Address City/[facility]/ZIP Co de Phone Number [facility] [place] [address] * Lactate, whole blood, send to lab ([facility] [place]/[facility]) (02/21/2024 9:45 AM EDT) [facility] Lactate WB 2.0 0.5 - 2.2 mmol/L [facility] Blood 02/21/2024 9:45 AM EDT 02/21/2024 9:52 AM EDT Narrative Resulting Agency Comment Spec In Lab Hayder Graham MD CHEMISTRY ORDERABLE S Performing Organization Address [facility]/ZIP Co de Phone Number [facility] [place] [address] * (ABNORMAL) Hepatic Function Panel (02/21/2024 9:45 [...] ORDERABLE S Performing Organization Address [facility]/ZIP Co de Phone Number [facility] [place] [address] * Lipase (02/21/2024 9:45 AM EDT) Lipase 56 0 - 60 unit/L [facility] Blood 02/21/2024 9:45 AM EDT 02/21/2024 9:52 AM EDT Narrative Resulting Agency Comment Spec In Lab Hayder Graham MD CHEMISTRY ORDERABLE S Performing Organization Address [facility] Co de Phone Number [facility] [place] [address] * Amylase (02/21/2024 9:45 AM EDT) Amylase 69 28 - 100 unit/L [facility] Blood 02/21/2024 9:45 AM EDT 02/21/2024 9:52 AM EDT Narrative Resulting Agency Comment Spec In Lab Hayder Graham MD CHEMISTRY ORDERABLE S Performing Organization Address [facility] Co de Phone Number [facility] [place] [address] * Potassium (02/21/2024 3:08 AM EDT) Potassium [...] MD CHEMISTRY ORDERABLE S [facility] [place] [address] * XR Chest PA & Lateral (Generic) (02/20/2024 10:19 AM EDT) WORKSTATION ID [id number] RAD Anatomical Region Laterality Modality Chest N/A Digital Radiogra phy Impressions 02/20/2024 1:11 PM EDT Small pleural effusions. No pneumothorax Thank you for letting us participate in the care of this patient. ??If you are a health care provider and have any questions regarding this report, please contact the number below. ??For patients who have questions please contact the health child adolescent care that requested your imaging first. ? Electronically signed by: Rogerio Cruz MD, [facility] ??([phone]), at 02/20/2024 1:11 PM Narrative 02/20/2024 1:11 PM EDT EXAMINATION: XR CHEST PA AND LATERAL (GENERIC) CLINICAL HISTORY: s/p AVR/CABGx3 TECHNIQUE: PA and lateral views of the chest COMPARISON: 02/17/2024 FINDINGS: Support devices: Interval removal of Barnard-Kaila catheter, endotracheal tube and mediastinal chest tubes The cardiac silhouette is stable status post median sternotomy, CABG and aortic valve replacement. There are small pleural effusions. No pneumothorax. Procedure Note Rogerio Cruz MD - 02/20/2024 EXAMINATION: XR CHEST PA AND LATERAL (GENERIC) CLINICAL HISTORY: s/p AVR/CABGx3 TECHNIQUE: PA and lateral views of the chest COMPARISON: 02/17/2024 FINDINGS: Support devices: Interval removal of Barnard-Kaila catheter, endotracheal tubeand mediastinal chest tubes The [...] who have questions please contactthe health child adolescent care that requested your imaging first. Hayder Graham MD IMG DX ORDERABLES * Scan, Peripheral Blood (02/20/2024 4:23 AM EDT) Pathologist [facility] Plat estimate Decreased [facility] RBC Morphology Normal [facility] Blood 02/20/2024 4:23 AM EDT 02/20/2024 4:42 AM EDT Narrative Resulting Agency Comment Spec In Lab Minnie FRENCH HEMATOLOGY CECILIO ALEMAN [facility] [place] [address] * (ABNORMAL) Differential, Automated (02/20/2024 4:23 AM EDT) [facility] Neutrophil % 81.7 % [facility] Neutrophil Absolute 10.37(H) 1.70 - 6.10 x10(3)/mc L [facility] Lymph % 7.4 % [facility] Lymphocytes Abs 0.9 0.9 - 3.2 x10(3)/mc L [facility] Monocyte % 9.7 % [facility] Monocyte Abs 1.2(H) 0.3 - 0.9 x10(3)/mc L [facility] Eos % 0.1 % [facility] Eosinophils Abs 0.0 0.0 - 0.4 x10(3)/[facility] LABORATORY Basophil % 0.2 % [facility] Baso Absolute 0.0 0.0 - 0.1 x10(3)/[facility] LABORATORY Immature Gran % 0.90 % [facility] Comment: Immature granulocytes(IG's)percentage and absolute count will include metamyelocytes, myelocytes, and promyelocytes. Blood smears from CBCs yielding IG's will be scanned manually for concordance. If this scan disagrees with the automated IG or if promyelocytes are noted, a manual differential will be performed. Immature Gran Absolute 0.12(H) 0.00 - 0.04 x10(3)/[facility] LABORATORY Blood 02/20/2024 4:23 AM EDT 02/20/2024 4:42 AM EDT Narrative Resulting Agency Comment Spec In Lab Minnie FRENCH HEMATOLOGY CECILIO ALEMAN [facility] [place] [address] * (ABNORMAL) Hemogram (02/20/2024 4:23 AM EDT) White Blood Cell 12.7(H) 4.0 - 9.5 x10(3)/[facility] LABORATORY Red Blood Cell 4.26(L) 4.58 - 5.54 x10(6)/ L [facility] Hemoglobin 12.3(L) 13.7 - 16.5 [...] [facility] NRBC% auto 0.0 % [facility] NRBC Absolute 0.000 0.000 - 0.000 x10(3)/mc L [facility] Blood 02/20/2024 4:23 AM EDT 02/20/2024 4:42 AM EDT Narrative Resulting Agency Comment Spec In Lab Minnie FRENCH HEMATOLOGY CECILIO ALEMAN [facility] [place] [address] * (ABNORMAL) Basic Metabolic Panel (non-fasting) (02/20/2024 [...] ORDERABLE S Performing Organization Address [facility]/ZIP Co de Phone Number [facility] [place] [address] * Potassium (02/19/2024 3:57 AM EDT) [facility] Potassium 4.3 3.5 - 5.0 mmol/L [facility] [...] MD CHEMISTRY ORDERABLE S [facility] [place] [address] * POCT Glucose (02/18/2024 8:24 AM EDT) Glucose, POC 157 65 - 199 mg/dL [facility] Comment: Supplemental ranges: <140 mg/dL before meals <180 mg/dL all other times of the day Blood 02/18/2024 8:24 AM EDT 02/18/2024 8:24 AM EDT Hayder Graham MD POINT OF CARE TEST ORDERABLES Performing Organization Address City/[facility]/ZIP Co de Phone Number [facility] [place] [address] * Scan, Peripheral Blood (02/18/2024 1:40 AM EDT) [facility] Plat estimate Decreased [facility] RBC Morphology Normal [facility] Blood 02/18/2024 1:40 AM EDT 02/18/2024 1:56 AM EDT Narrative Resulting Agency Comment Spec In Lab Neftali FRENCH HEMATOLOGY ORDER OLE Performing Organization Address City/[facility]/ZIP Co de Phone Number [facility] [place] [address] * (ABNORMAL) Differential, Automated (02/18/2024 1:40 AM EDT) [facility] Neutrophil % 87.1 % [facility] Neutrophil Absolute 15.03(H) 1.70 - 6.10 x10(3)/mc L [facility] Lymph % 3.0 % [facility] Lymphocytes Abs 0.5(L) 0.9 - 3.2 x10(3)/mc L [facility] Monocyte % 9.1 % [facility] Monocyte Abs 1.6(H) 0.3 - 0.9 x10(3)/mc L [facility] Eos % 0.0 % [facility] Eosinophils Abs 0.0 0.0 - 0.4 x10(3)/mc L [facility] Basophil % 0.2 % [facility] [...] FRENCH HEMATOLOGY ORDER OLE [facility] [place] [address] * (ABNORMAL) Hemogram (02/18/2024 1:40 AM EDT) [...] [facility] NRBC% auto 0.0 % [facility] NRBC Absolute 0.000 0.000 - 0.000 x10(3)/mc L [facility] Blood 02/18/2024 1:40 AM EDT 02/18/2024 1:56 AM EDT Narrative Resulting Agency Comment Spec In Lab Neftali FRENCH HEMATOLOGY ORDER OLE [facility] [place] [address] * (ABNORMAL) Basic Metabolic Panel (non-fasting) (02/18/2024 [...] MD CHEMISTRY ORDERABLE S [facility] [place] [address] * (ABNORMAL) Troponin (02/18/2024 1:40 AM EDT) [...] troponin value can be found in the [facility] Test Catalog Troponin - [facility] Test Catalog Reference: Fourth [place] Definition of Myocardial Infarction. Journal of the [place] [employer] 2018;72:2877-3793 Blood 02/18/2024 1:40 AM EDT 02/18/2024 1:56 AM EDT Narrative Resulting Agency Comment Spec In Lab Hayder Graham MD CHEMISTRY ORDERABLE S [facility] [place] [address] * POCT Glucose (02/17/2024 8:13 PM EDT) Glucose, POC 142 65 - 199 mg/dL [facility] Comment: Supplemental ranges: <140 mg/dL before meals <180 mg/dL all other times of the day Blood 02/17/2024 8:13 PM EDT 02/17/2024 8:13 PM EDT Hayder Graham MD POINT OF CARE TEST ORDERABLES Performing Organization Address [facility]/ZIP Co de Phone Number [facility] [place] [address] * POCT Glucose (02/17/2024 5:42 PM EDT) Glucose, POC 160 65 - 199 mg/dL [facility] Comment: Supplemental ranges: <140 mg/dL before meals <180 mg/dL all other times of the day Blood 02/17/2024 5:42 PM EDT 02/17/2024 5:42 PM EDT Hayder Graham MD POINT OF CARE TEST ORDERABLES Performing Organization Address City/[facility]/ZIP Co de Phone Number [facility] [place] [address] * Hemoglobin (02/17/2024 5:42 PM EDT) Hemoglobin 13.7 13.7 - 16.5 g/dL [facility] Blood 02/17/2024 5:42 PM EDT 02/17/2024 6:10 PM EDT Narrative Resulting Agency Comment Spec In Lab Hayder Graham MD HEMATOLOGY ORDERABL ES Performing Organization Address [facility] Co de Phone Number [facility] [place] [address] * Potassium (02/17/2024 5:42 PM EDT) Pathologist [facility] Potassium 4.3 3.5 - 5.0 mmol/L [facility] [...] ORDERABLE S Performing Organization Address [facility] de Phone Number [facility] [place] [address] * (ABNORMAL) BLOOD GAS 2 ARTERIAL (02/17/2024 [...] [facility] FIO2 Art 40 % [facility] PF Ratio Art 195 [facility] Blood 02/17/2024 4:18 PM EDT 02/17/2024 4:18 PM EDT Hayder Graham MD POINT OF CARE TEST ORDERABLES Performing Organization Address City/State/[facility] Co de Phone Number [facility] [place] [address] * XR Chest One View (02/17/2024 1:44 PM EDT) WORKSTATION ID [id number] RAD Anatomical Region Laterality Modality Chest N/A Digital Radiogra phy Impressions 02/17/2024 2:12 PM EDT 1. ??No definite pleural fluid collection or pneumothorax. 2. ??Right IJ Barnard-Kaila catheter tip terminates in a descending branch [...] have questions please contact the health child adolescent care that requested your imaging first. ? Electronically signed by: Denzel Hankins MD, [facility] ??([phone]), at 02/17/2024 2:12 PM Narrative 02/17/2024 2:12 PM EDT EXAMINATION: XR CHEST ONE VIEW CLINICAL HISTORY: s/p avr/cabg eval effusions TECHNIQUE: 1 view of the chest COMPARISON: Chest x-ray 01/09/2024, chest CT 02/03/2024 FINDINGS: ET tube tip terminates 5.2 cm above the carlos. Right IJ Barnard-Kaila catheter tip terminates in a descending branch [...] 5.2 cm above the carlos. Right IJ Barnard-Ganzcatheter tip terminates in a descending branch of [...] fluid collection or pneumothorax. 2. Right IJ Barnard-Kaila catheter tip terminates in a descending branch ofthe right pulmonary artery. Suggest catheter retraction. 3. Additional support lines and tubes as above. Thank you for letting us participate in the care of this patient. If youare a health care provider and have any questions regarding this report,please contact the number below. For patients who have questions please contactthe health child adolescent care that requested your imaging first. Electronically signed by: Denzel Hankins MD, [facility]([phone]), at 02/17/2024 2:12 PM Hayder Graham MD [...] [facility] FIO2 Art 100 % [facility] PF Ratio Art 320 [facility] Blood 02/17/2024 1:31 PM EDT 02/17/2024 1:31 PM EDT Hayder Graham MD POINT OF CARE TEST ORDERABLES [facility] [place] [address] * (ABNORMAL) Coox2 (02/17/2024 1:21 PM EDT) [...] OF CARE TEST ORDERABLES [facility] [place] [address] * (ABNORMAL) BLOOD GAS 2 ARTERIAL (02/17/2024 [...] TEST ORDERABLES Performing Organization Address [facility] de Phone Number [facility] [place] [address] * (ABNORMAL) Fibrinogen (02/17/2024 12:10 PM EDT) [...] ORDERABLE S Performing Organization Address [facility] de Phone Number [facility] [place] [address] * (ABNORMAL) Thrombin time (02/17/2024 12:10 PM [...] ORDERABLE S Performing Organization Address [facility] de Phone Number [facility] [place] [address] * APTT (02/17/2024 12:10 PM EDT) Partial [...] ORDERABLE S Performing Organization Address [facility] de Phone Number [facility] [place] [address] * (ABNORMAL) Prothrombin Time (02/17/2024 12:10 PM [...] MD HEMATOLOGY ORDERABLE S [facility] [place] [address] * (ABNORMAL) Hemogram (02/17/2024 12:10 PM EDT) [...] [facility] NRBC% auto 0.0 % [facility] NRBC Absolute 0.000 0.000 - 0.000 x10(3)/mc L [facility] Blood 02/17/2024 12:1 0 PM EDT 02/17/2024 12:19 PM EDT Narrative Resulting Agency Comment Spec In Lab Tara York MD HEMATOLOGY ORDERABLE S [facility] [place] [address] * (ABNORMAL) BLOOD GAS 2 ARTERIAL (02/17/2024 [...] mmol/L [facility] Comment: Noted by stringed instrument repairer. Please note: Patients with WBC [...] OF CARE TEST ORDERABLES [facility] [place] [address] * (ABNORMAL) BLOOD GAS 2 ARTERIAL (02/17/2024 [...] mmol/L [facility] Comment: Noted by stringed instrument repairer. Please note: Patients with WBC [...] OF CARE TEST ORDERABLES Performing Organization Address City/[facility]/ZIP Co de Phone Number [facility] [place] [address] * (ABNORMAL) Hemoglobin and Hematocrit, blood (02/17/2024 [...] MD HEMATOLOGY ORDERABL ES [facility] [place] [address] * (ABNORMAL) Platelet count (02/17/2024 11:04 AM EDT) Platelet 106(L) 145 - 357 x10(3)/mc L [facility] Immature Plt % 1.6 0.0 - 7.4 % [facility] Comment: Limitation of the Immature Platelet Fraction (IPF)-May be less reliable when the platelet count is less than 98v083/uL due to statistical imprecision. The IPF value [...] in a decreased state of production. References: [employer] The Clinical Value of the Immature Platelet Fraction (IPF) in Cell Recovery Document Number [id number] 03/2011 [employer] The Role of the Immature Platelet Fraction (IPF) in the Differential Diagnosis of Thrombocytopenia, Document [id number] V002/15/14 P014 Blood 02/17/2024 11:0 4 AM EDT 02/17/2024 11:12 AM EDT Narrative Resulting Agency Comment Spec In Lab Hayder Graham MD HEMATOLOGY ORDERABL ES [facility] [place] [address] * (ABNORMAL) Fibrinogen (02/17/2024 11:04 AM EDT) [...] MD HEMATOLOGY ORDERABL ES [facility] [place] [address] * (ABNORMAL) BLOOD GAS 2 ARTERIAL (02/17/2024 [...] OF CARE TEST ORDERABLES Performing Organization Address City/State/[facility] Co de Phone Number [facility] [place] [address] * (ABNORMAL) BLOOD GAS 2 ARTERIAL (02/17/2024 [...] OF CARE TEST ORDERABLES Performing Organization Address City/State/[facility] Co de Phone Number [facility] [place] [address] * Surgical Pathology Report (02/17/2024 10:01 AM EDT) Final Diagnosis [id number] ? Location: [facility]; [address] [place] [address] The signing pathologist has (i) examined the relevant preparation(s) for the specimen(s) and (ii) rendered or confirmed the diagnosis(es). . ?Surgical Pathology DIAGNOSIS Aortic valve leaflets, excision: Valve leaflets with myxoid degeneration, nodular fibrosis and dystrophic calcifications. Electronically signed by: ?Livier Montoya MD Verified: ??02/24/2024 13:49 ??Pathologist Performed at: ??-[facility] [place] Dept. of Pathology, [place] [address] Obstetrics/Gynecology Nurse: Job Brewer MD, AP, ??CLIA Certificate: [id number] SPECIMEN(S) SUBMITTED A - Aortic Valve Leaflets, [...] Sections Processing Blocks submitted for decalcification: A1. Chemistry Research Assistant sections in 1 cassette labeled A1. ??ajw 02/24/2024 1:49 PM EDT [facility] AORTIC STRUCTURE / Unknown 02/17/2024 10:01 AM EDT 02/17/2024 10:01 AM EDT Hayder Graham MD PATHOLOGY/CYTOLOGY ORDERABLES [facility] [place] [address] * Specimen to Pathology (02/17/2024 10:01 AM EDT) AP Specimen 02/17/2024 10:0 1 AM EDT 02/17/2024 10:01 AM EDT Narrative [facility] - 02/17/2024 10:01 AM EDT Specimen requisition ordered. ??Separate Pathology report to follow Hayder Graham MD PATHOLOGY/CYTOLOGY ORDERABLES [facility] [place] [address] * (ABNORMAL) BLOOD GAS 2 ARTERIAL (02/17/2024 [...] OF CARE TEST ORDERABLES [facility] [place] [address] * (ABNORMAL) BLOOD GAS 2 VENOUS (02/17/2024 9:34 AM EDT) pH, Venous 7.22(Criti marquez) 7.32 - 7.42 [facility] Comment:Noted by stringed instrument repairer. PCO2, Venous 43 41 - 51 mmHg [facility] Comment:Noted by stringed instrument repairer. PO2, Venous 57(H) 25 - 40 mmHg [facility] Comment:Noted by stringed instrument repairer. Bicarbonate, Venous 17.1 mmol/L [facility] Comment:Noted by stringed instrument repairer. Base Excess, Venous -10.6 mmol/L [facility] Comment:Noted by stringed instrument repairer. Hgb Blood Gas 11.2(L) 13.7 - 16.5 g/dL [facility] Comment:Noted by stringed instrument repairer. Oxyhemoglobin, Venous 86.5 % [facility] Comment:Noted by stringed instrument repairer. Carboxyhemoglob in, Venous 0.3 % [facility] Comment: Noted by stringed instrument repairer. Nonsmokers: 0.5-1.5% COHB Smokers: Variable, but usually less than 10% Toxic: 20-30% COHB Lethal: Greater than 60% COHB Methemoglobin, Venous 0.0 <=1.5 % [facility] Comment:Noted by stringed instrument repairer. Na Whole Blood 156(H) 135 - 145 mmol/L [facility] Comment:Noted by stringed instrument repairer. K Whole Blood 5.5(H) 3.5 - 5.0 mmol/L [facility] Comment: Noted by stringed instrument repairer. Please note: Patients with WBC >100,000 may have falsely elevated Potassium levels. Contact the Clinical Chemistry Laboratory if there are any questions. ICa Whole Blood 1.03(L) 1.15 - 1.33 mmol/L [facility] Comment: Noted by stringed instrument repairer. Note: ??Total bilirubin higher than 20 mg/dL may lead to falsely low ionized calcium. CL Whole Blood 100 98 - 107 mmol/L [facility] Comment:Noted by stringed instrument repairer. Gluc Whole Bld 132 65 - 199 mg/dL [facility] Comment: Noted by stringed instrument repairer. Diabetes: >=200 mg/dL plus symptoms Lactate WB 1.0 0.5 - 2.2 mmol/L [facility] Comment:Noted by stringed instrument repairer. Blood Gas Source Venous [facility] Blood 02/17/2024 9:34 AM EDT 02/17/2024 9:34 AM EDT Hayder Graham MD POINT OF CARE TEST ORDERABLES [facility] [place] [address] * (ABNORMAL) BLOOD GAS 2 ARTERIAL (02/17/2024 [...] TEST ORDERABLES Performing Organization Address [facility] de Phone Number [facility] [place] [address] * POCT Glucose (02/17/2024 6:38 AM EDT) Glucose, POC 98 65 - 199 mg/dL [facility] Comment: Supplemental ranges: <140 mg/dL before meals <180 mg/dL all other times of the day Blood 02/17/2024 6:38 AM EDT 02/17/2024 6:38 AM EDT Hayder Graham MD POINT OF CARE TEST ORDERABLES Performing Organization Address [facility] Phone Number [facility] [place] [address] * Transesophageal Echo/OR (02/17/2024 6:33 AM EDT) [...] [facility]-operative [facility] of [...] Starting on Starla 02/20/24 at 0700, Until Sat02/20/24 at 0916, Rotate [...] dose on Sat02/17/24 at 1400, Until Discontinued, [place] teeth and / or gums. Scan the CHG vial in the [employer] Q-Care Oral Care Kit from floor stock. Ventilator-associated pneumonia prophylaxis For use in ICU/Critical care locations ONLY. Obtain kit from Floor Stock location. Scan CHG vial in the [employer] Q-Care Oral Care Kit, Routine Given 02/17/2024 [...] at 50% of previous rate. Call house calls nurse if goal not achieved at maximum rate. [...] PHENYLephrine and/or vasopressin ineffective. Call pager # [phone] if initiated. Titrate to keep systolic blood [...] L/min/M2. Maximum volume 2 L. Call house calls nurse for additional fluid orders: pager #[phone]. Rate/Dose Verify 02/18/2024 8:00 AM EDT 1 mL/hr 1 mL/hr Rate/Dose Verify 02/18/2024 6:00 AM EDT 1 mL/hr 1 mL/hr Rate/Dose Verify 02/18/2024 4:00 AM EDT 1 mL/hr 1 mL/hr sodium chloride 0.9% infusion 10-30 mL/hr, Intravenous, DAILY PRN, Starting on Sat02/17/24 at 1307, Until Sat02/18/24 at 0835, Side port TKO rate, per [facility] nursing protocol. Rate/Dose Verify 02/17/2024 8:00 PM EDT 30 mL/hr 30 mL/hr Rate/Dose Verify 02/17/2024 6:00 PM EDT 30 mL/hr 30 mL/h r Rate/Dose Verify 02/17/2024 5:00 PM EDT 30 mL/hr 30 mL/h r sodium chloride 0.9% infusion 10-30 mL/hr, Intravenous, DAILY PRN, Starting on Sat02/17/24 at 1307, Until Sat02/18/24 at 0835, Side port TKO rate, per [facility] nrusing protocol. Rate/Dose Verify 02/18/2024 8:00 [...] Britton RN)1210 (Given - Provider: Mishel Merrill, RN)1701 (Given - Provider: Mishel Merrill, RN)2324 (Given - Provider: Otis Crook, COLBY) [...] Vincent RN) 09 (Given - Provider: Mishel Merirll, COLBY) 0836 (Given - Provider: Jazlyn Maldonado, [...] Discontinued, Routine 0824 (Given - Provider: Reilly Vincent, RN)1408 (Given - Provider: Ingrid Menjivar, RN)2056 (Given - Provider: Polo Britton, COLBY) 0908 (Given - Provider: Mishel Merrill, COLBY)1500 (Given - Provider: Mishel Merrill, COLBY)211 (Given - Provider: Otis Crook, RN) 0836 [...] Routine 0821 (Given - Provider: Reilly Vincent, COLBY) 0907 (Given - Provider: Mishel Merrill, COLBY) [...] Ingrid Menjivar RN)1201 (Stopped - Provider: Reilly Vincent, COLBY) senna-docusate [...] Polo Britton RN)0930 (Given - Provider: Reilly N Hardin, RN)1708 (Given - Provider: Ingrid Menjivar RN) 0130 (Given - Provider: Polo Britton RN)0908 (Given - Provider: Mishel Merrill, COLBY)1701 (Given - Provider: Mishel Merrill RN)2325 (Given - Provider: Otis Crook RN) [...] 0836 (Given - Provider: Jazlyn Maldonado RN) timoloL (Timoptic) 0.5 % ophthalmic solution [...] Routine documented in this encounter Care Teams Manager Employee Relations Relationship Specialty Start Date End Date Aparna Jordan, MAURI PCP - General Family Medicine 10/21/23 05/26/24 documented as of this encounter
--- OUTSIDE RECORDS SUMMARY | 2024-07-07 13:18 | XMS_ITS | Encounter Summary ---
Author Organization [facility] Address [facility] [place] [address] Care Team Providers Care Building Dismantler Name Role Phone Vanessa Christian APRN Primary [...] PM EST Office Visit Cardiology at [address] [place] [address] Neftali Ernandez MD [facility] [place] [address] documented as of this encounter Visit Diagnoses Not on filedocumented in this encounter Care Teams Building Dismantler Relationship Specialty Start Date End Date Vanessa Christian APRN PCP - General Family Medicine 10/21/23 05/26/24 documented as of this encounter
--- OUTSIDE RECORDS SUMMARY | 2024-07-07 13:18 | XMS_ITS | Encounter Summary ---
Author Organization [facility] [place] [address] Care Team Providers Care Wastewater Treatment Plant Chemist Name Role Phone Vanessa Christian MAURI Primary Care Provider [phone] Encounter Details Date Type Department Care Team (Late st Contact Info) Description 01/10/2024 Orders [place] [phone] Lawson Napoles PA [facility] [place] [address] Screening for cardiovascular condition; Aortic valve stenosis, [...] PM EST Office Visit Cardiology at [address] [place] [phone] Neftali Ernandez MD [facility] [place] [address] documented as of this encounter Visit Diagnoses Diagnosis Screening for cardiovascular condition Screening for other and unspecified cardiovascular conditions Aortic valve stenosis, etiology of cardiac valve disease unspecified documented in this encounter Care Teams Wastewater Treatment Plant Chemist Relationship Specialty Start Date End Date Vanessa Christian APRN PCP - General Family Medicine 10/21/23 05/26/24 documented as of this encounter
--- OUTSIDE RECORDS SUMMARY | 2024-07-07 13:18 | XMS_ITS | Encounter Summary ---
Author Organization [facility] [place] [address] Care Team Providers Care Purification Operator Helper Name Role Phone Vanessa Christian MAURI Primary Care Provider [phone] Reason for Visit * Auth/Cert (Routine) Specialty [...] GRAFT (WRVU 7.93) Zak Farmer MD [facility] [place] [address] [facility] Referral ID Status Reason Start Date Expiration Date Visits Re quested Visits Authorized [id number] 1 1 Encounter Details Date Type Department Care Team (Late st Contact Info) Description 02/17/2024 7:35 AM EDT Anesthesia Event Main Operating Room [facility] [place] [phone] Roman York MD [facility] [place] [address] Anesthesia Record Procedure Summary Procedure Name Responsible [...] by Sadiq Woo RN PIV 02/17/24; 0715; [id number] catheter system; 18 gauge; cephalic vein (lateral [...] Gloves; 02/18/24; 1030 02/17/24 0808 by Roman Yokr MD 02/18/24 1030 by Sadiq Woo RN [...] alcohol) rare [facility] Utilities Answer Date Recorded In the past 12 months has th e electric, gas, oil, or water [employer] threatened to shut off services in your [...] Procedure Summary Date: 02/17/24 Room / Location: [facility] OR [address] [place] [address] MAIN OR Anesthesia Start: 734 Anesthesia Stop: [...] unfiled device data. Patient Location: [facility] Level of Consciousness: Sedated (Pharmacologic/Intentional) Pain [...] PM EST Office Visit Cardiology at [address] [place] [address] [facility] [place] [address] documented as of this encounter [...] mg documented in this encounter Care Teams Purification Operator Helper Relationship Specialty Start Date End Date Vanessa Christian APRN PCP - General Family Medicine 10/21/23 05/26/24 documented as of this encounter
--- OUTSIDE RECORDS SUMMARY | 2024-07-07 13:18 | XMS_ITS | Encounter Summary ---
Author Organization [facility] [place] [address] Care Team Providers Care Lens Mold Setter Name Role Phone Vanessa Christian MAURI Primary Care Provider [phone] Reason for Visit * Auth/Cert (Routine) Specialty [...] RHC (WRVU 5.9) Rima Dickinson MD [facility] [place] [address] [facility] Referral ID Status Reason Start Date Expiration Date Visits Re quested Visits Authorized [id number] 1 1 Encounter Details Date Type Department Care Team (Late st Contact Info) Description 02/03/2024 10:00 AM EDT - 02/03/2024 11:00 AM EDT Surgery [place] [address] Saira Lua MD [facility] [place] [address] CARDIAC CATHETERIZATION Social History Tobacco Use Types [...] lbs Follow-up Visits Follow up with your disintegrator in 2-4 weeks Access Site 'Black and Blue' and tenderness is expected during the first week Call if you noted a mass (lump) greater than the size of a ellis Call Office with any Questions and if you have any of the following Clarence Lane M.D Interventional Armhole Baster Jumpbasting Terminal Press Operator #: [phone] * Attachments The following attachments cannot be sent through Care Everywhere. * CAD (Coronary Artery Disease): General Info (Sri Lankan) * Coronary Angiogram: Post-op (Sri Lankan) documented in this encounter Medications at Time [...] Lane MD - 02/03/2024 11:48 AM EDT [facility] Interventional Cardiology Adult Pre-Procedure H&P Update: Cardiac Catheterization Karlos Anthony [id number] 1960 Chief Complaint: Aortic stenosis HPI: Mr. [...] is inthe chart Clarence Lane MD Interventional Armhole Baster Jumpbasting 02/03/24 11:48 AM documented in this encounter Miscellaneous Notes * Brief Op Note - Clarence Lane MD - 02/03/2024 12:51 PM EDT Preliminary Cardiac Catheterization Procedure Note: Patient Name: Karlos Anthony : [id number] MR#: [id number] Case Date: 02/03/2024 Terminal Press Operator: Surgeon(s) and Role: * Saira Lua [...] PM EST Office Visit Cardiology at [address] [address] Neftali Ernandez MD [facility] [place] [address] Scheduled Orders Name Type Priority Associated Diagnoses [...] ? Procedure Date: 02/03/2024 ? A #: [id number] ? Primary Physician: Saira Lua ? Case #: [id number] ? File Name: [id number] ? Catheterization Order Number: [id number] ? [facility] ? Final Report [place], [place] ? Patient Name: ? Karlos Patenaude ? ID#: ?[id number] ? : ?1960 ? Procedure Date: ? [...] Karlos Anthony Procedure Date: 02/03/2024 A #: [id number] Primary Physician: Saira Lua Case #: [id number] File Name: [id number] Catheterization Order Number: [id number] [facility] FinalReport [place], [place] Patient Name: Karlos Anthony ID#:[id number] :1960 Procedure Date: February 03, 2024 Case [...] as ASA Class III. The [facility] clinical frailty scale is 3: [...] (Bezet) 372 ms MUSE SYSTEM Calculated P [place] 59 degrees MUSE SYSTEM Calculated R [place] 34 degrees MUSE SYSTEM Calculated T [place] 63 degrees MUSE SYSTEM INTERPRETATION Sinus bradycardia [...] MD) documented in this encounter Care Teams Lens Mold Setter Relationship Specialty Start Date End Date Vanessa Christian APRN PCP - General Family Medicine 10/21/23 05/26/24 documented as of this encounter
--- OUTSIDE RECORDS SUMMARY | 2024-07-07 13:18 | XMS_ITS | Encounter Summary ---
Author Organization [facility] [place] [address] Care Team Providers Care Director Health Name Role Phone Vanessa Christian MAURI Primary [...] RHC (WRVU 5.9) Rima Dickinson MD [facility] [place] [address] [facility] Referral ID Status Reason Start Date Expiration Date Visits Re quested Visits Authorized [id number] 1 1 Encounter Details Date Type Department Care Team (Latest Contact Info) Description 02/03/2024 8:06 AM EDT - 02/03/2024 2:54 PM EDT Hospital Encounter [place] [address] Rima Dickinson MD [facility] [place] [address] Screening for cardiovascular condition; Aortic valve stenosis, [...] lbs Follow-up Visits 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 * CAD (Coronary Artery Disease): General Info (Guinean) * Coronary Angiogram: Post-op (Guinean) documented in this encounter Medications at Time [...] MD - 02/03/2024 11:48 AM EDT [facility] Interventional Cardiology Adult Pre-Procedure H&P Update: Cardiac Catheterization Karlos Anthony [id number] 1960 Chief Complaint: Aortic stenosis HPI: Mr. [...] is inthe chart Clarence Lane MD Interventional Boat Outboard Engine Mechanic 02/03/24 11:48 AM documented in this encounter Miscellaneous Notes * Brief Op Note - Clarence Lane MD - 02/03/2024 12:51 PM EDT Preliminary Cardiac Catheterization Procedure Note: Patient Name: Karlos Anthony : [id number] MR#: [id number] Case Date: 02/03/2024 Vat Operator: Surgeon(s) and Role: * Saira Lua [...] PM EST Office Visit Cardiology at [address] [address] Neftali Ernandez MD [facility] [place] [address] Scheduled Orders Name Type Priority Associated Diagnoses [...] Modality Other Narrative 02/12/2024 3:47 PM EDT ?[facility] ? Cardiac Catheterization/Intervention Report ? Patient Name: Patenaude, Karlos ? Procedure Date: 02/03/2024 ? A #: [id number] ? Primary Physician: Saira Lua ? Case #: [id number] ? File Name: [id number] ? Catheterization Order Number: [id number] ? [facility] ? Final Report [place], [place] ? Patient Name: ? Karlos Patenaude ? ID#: ?[id number] ? : ?1960 ? Procedure Date: ? [...] Procedure Note Saira Lua MD - 02/12/2024 [facility] Cardiac Catheterization/Intervention Report Patient Name: Karlos Anthony Procedure Date: 02/03/2024 A #: [id number] Primary Physician: Saira Lua Case #: [id number] File Name: [id number] Catheterization Order Number: [id number] [facility] FinalReport [place], [place] Patient Name: Karlos Anthony ID#:[id number] :1960 Procedure Date: February 03, 2024 Case [...] was designated as ASA Class III. The [facility] clinical frailty scale is 3: [...] (Bezet) 372 ms MUSE SYSTEM Calculated P [place] 59 degrees MUSE SYSTEM Calculated R [place] 34 degrees MUSE SYSTEM Calculated T [place] 63 degrees MUSE SYSTEM INTERPRETATION Sinus bradycardia [...] MD) documented in this encounter Care Teams Director Health Relationship Specialty Start Date End Date Vanessa Christian APRN PCP - General Family Medicine 10/21/23 05/26/24 documented as of this encounter
--- OUTSIDE RECORDS SUMMARY | 2024-07-07 13:18 | XMS_ITS | Encounter Summary ---
[place] [address] Care Team Providers Care Stevedoring Supervisor Name Role Phone Vanessa Christian Lane DOTSON Primary Care Provider [phone] Reason for Referral * Diagnostic Test (Routine) - Closed Specialty Diagnoses / Procedures Referred By Contac t Referred To Contact Radiology Diagnoses Nonrheumatic aortic valve stenosis Procedures CT Chest wo Contrast (Generic) Louisa Cho PA [facility] [place] [address] [facility] [place] [address] Referral ID Status Reason Start Date Expiration Date V isits Requested Visits Authorized [id number] Closed Specialty Service Requested 01/10/2024 07/11/2025 1 1 Reason for Visit * Diagnostic Test (Routine) - Closed Specialty Diagnoses / Procedures Referred By Contac t Referred To Contact Radiology Diagnoses Nonrheumatic aortic valve stenosis Procedures CT Chest wo Contrast (Generic) Louisa Cho PA [facility] [place] [address] [facility] [place] [address] Referral ID Status Reason Start Date Expiration Date V isits Requested Visits Authorized [id number] Closed Specialty Service Requested 01/10/2024 07/11/2025 1 1 Encounter Details Date Type Department Care Team (Latest Contact Info) Description 02/03/2024 7:36 AM EDT - 02/03/2024 8:05 AM EDT Hospital Encounter CT Scan at [facility] [place] [place] [address] Zak Farmer MD [facility] [place] [address] Nonrheumatic aortic valve stenosis Discharge Disposition: Home Social History Tobacco Use Types Packs/Day Years Used Date Smoking Tobacco: Former Cigarettes Smokeless Tobacco: Never Comments:Quit 15 + years ago Alcohol Use Standard Drinks/Week Comments Yes 0 (1 standard drink = 0.6 oz pur e alcohol) rare [facility] Inpatient Questions Answer Date Recorded Does Anyone [...] PM EST Office Visit Cardiology at [address] [place] [address] Neftali Ernandez MD [facility] [place] [address] documented as of this encounter Procedures Procedure Name Priority Date/Time Associated Diagnosis Comments CT CHEST WO CONTRAST (GENERIC) Routine 02/03/2024 7:44 AM EDT Nonrheumatic aortic valve stenosis documented in this encounter Results * CT Chest wo Contrast (Generic) (02/03/2024 7:44 AM EDT) [facility] WORKSTATION ID [id number] DH RAD Anatomical Region Laterality Modality Chest [...] who have questions please contact the health professional healthcare representative that requested your imaging first. ? Electronically signed by: Rogerio Wright MD, [facility] ([phone]), at 02/03/2024 10:00 AM Narrative 02/03/2024 10:00 [...] nodule along the minor fissure (series 302 [id number]) and a 8 mm right lower lobe [...] patients who have questions please contactthe health professional healthcare representative that requested your imaging first. Electronically signed by: Rogerio Wright MD, [facility]([phone]), at 02/03/2024 10:00 AM Zak Farmer MD IMG CT ORDERABLES documented in this encounter Visit Diagnoses Diagnosis Nonrheumatic aortic valve stenosis Aortic valve disorders documented in this encounter Care Teams Stevedoring Supervisor Relationship Specialty Start Date End Date Vanessa Christian APRN PCP - General Family Medicine 10/21/23 05/26/24 documented as of this encounter
--- OUTSIDE RECORDS SUMMARY | 2024-07-07 13:18 | XMS_ITS | Encounter Summary ---
Author Organization [facility] [place] [address] Care Team Providers Care Commercial Fishing Vessel Operator Name Role Phone Vanessa Christian MAURI Primary Care Provider [phone] Encounter Details Date Type Department Care Team (Late st Contact Info) Description 02/14/2024 Orders Only [place] [id number] Zak Farmer MD [facility] [place] [address] Coronary artery disease, unspecified vessel or lesion type, unspecified whether angina present, unspecified whether [place] or transplanted heart (Primary Dx) Social History [...] PM EST Office Visit Cardiology at [address] [place] [phone] Neftali Ernandez MD [facility] [place], [place] [id number] documented as of this encounter Results * EKG 12 Lead (03/12/2024 2:35 PM EDT) Ventricular rate 59 BPM MUSE SYSTEM Atrial Rate 59 BPM MUSE SYSTEM P-R Interval 190 ms MUSE SYSTEM QRS Duration 92 ms MUSE SYSTEM Q-T Interval 406 ms MUSE SYSTEM QTC Calculated (Bezet) 401 ms MUSE SYSTEM Calculated P [place] -12 degrees MUSE SYSTEM Calculated R [place] 24 degrees MUSE SYSTEM Calculated T [place] 74 degrees MUSE SYSTEM INTERPRETATION Sinus bradycardia T wave abnormality, consider anterior ischemia Abnormal ECG When compared with ECG of 17-FEB-2024 13:24, PA interval has decreased T wave inversion now evident in Anterior leads Confirmed by Paul Guzman ([id number]) on 03/15/2024 8:36:23 AM MUSE SYSTEM 03/12/2024 2:35 PM EDT 03/15/2024 8:36 AM EDT Zak Farmer MD ECG ORDERABLES MUSE SYSTEM * XR Chest PA & Lateral (Generic) (03/12/2024 1:42 PM EDT) WORKSTATION ID [id number] RAD Anatomical Region Laterality Modality Chest N/A [...] questions please contact the health primary care md that requested your imaging first. ? 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 Electronically signed by: Augie Sanchez MD, [facility]([phone]), at 03/13/2024 8:28 AM Zak Farmer MD IMG DX ORDERABLES documented in this encounter Visit Diagnoses Diagnosis Coronary artery disease, unspecified vessel or lesion type, unspecified whether angina present, unspecified whether [place] or transplanted heart- Primary Coronary artery disease, unspecified vessel or lesion type, unspecified whether angina present, unspecified whether [place] or transplanted heart documented in this encounter Care Teams Commercial Fishing Vessel Operator Relationship Specialty Start Date End Date Vanessa Christian APRN PCP - General Family Medicine 10/21/23 05/26/24 documented as of this encounter
--- OUTSIDE RECORDS SUMMARY | 2024-07-07 13:18 | XMS_ITS | Encounter Summary ---
Author Organization [facility] [place] [address] Care Team Providers Care Gaming Dealer Name Role Phone Aparna Jordan MAURI Primary Care Provider [phone] Reason for Visit * Auth/Cert (Routine) Specialty [...] 7.93) Hayder Graham MD [facility] [place] [address] [facility] Referral ID Status Reason Start Date Expiration Date Visits Re quested Visits Authorized [id number] 1 1 Encounter Details Date Type Department Care Team (Late st Contact Info) Description 02/17/2024 7:30 AM EDT - 02/17/2024 1:26 PM EDT Surgery [place] [id number] Hayder Graham MD [facility] [place] [address] ENDOSCOPIC HARVEST VEIN(S) FOR CABG (WRVU 0.31) Social History Tobacco Use Types Packs/Day Years Used Date Smoking Tobacco: Former Cigarettes Smokeless Tobacco: Never Comments:Quit 15 + years ago Alcohol Use Standard Drinks/Week Comments Yes 0 (1 standard drink = 0.6 oz pur e alcohol) rare [facility] Utilities Answer Date Recorded In [...] Patient Age: 63 y.o. Birthdate: 1960 Language: [place]inean Race: White Ethnicity: Not nor Admit Date: 02/17/2024 Discharge Date: 02/24/24 Attending Physician: Hayder Graham MD Follow-up Recommendations for Providers: Please continue routine management of cardiovascular risk factors including blood pressure, lipids,glucose, etc. Please note any changes to medications. Patient to follow up with PCP, Aparna Jordan APRN, in 1-2 weeks. Patient to follow up with Editor Publications, Neftali Ernandez MD , in 2 weeks. Patient to follow up with Cardiac Surgeon, Dr. Hayder Graham, with a chest x-ray, EKG, and Echo. Inpatient Provider Contact Information: 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 Past Surgical History: Procedure Laterality Date PRO CABG, ARTERIAL, SINGLE N/A 02/17/2024 @CABG, USING ARTERIAL GRAFT;SINGLE ARTERIAL GRAFT (WRVU 33.75) performed by Hayder Graham MD at [facility] MAIN OR PRO CABG, ARTERY-VEIN, TWO N/A 02/17/2024 @CABG, TWO VENOUS GRAFTS & ARTERIAL GRAFT (WRVU 7.93) performed by Hayder Graham MD at [facility] MAIN OR PRO ENDOSCOPY W/VIDEO-ASST VEIN HARVEST, CABG Left 02/17/2024 ENDOSCOPIC HARVEST VEIN(S) FOR CABG (WRVU 0.31) performed by Hayder Graham MD at [facility] MAIN OR PRO REPLACEMENT PROSTHETIC AORTIC VALVE OPEN W CARDIOPULMONARY BYPASS HOMOGRF/STENT N/A 02/17/2024 @REPLACE AORTIC VALVE, OPEN, W\CPB, W\PROSTHETIC VALVE (WRVU 41.32) performed by Hayder Graham MD at [facility] MAIN OR Prior To Admission Medications [...] insufficiency. He has glaucoma. He used to bacActionX until about 15 years ago. He has undergone prior herniorrhaphy. 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 Major Procedures/Operations: 02/17/24 s/p avr/cabgx3 CABG x 3 JOSE->LAD SVG->dRCA SVG->OM1 EVH from LLE AVR with a 23 mm Inspiris Bioprosthesis Hospital Course: Karlos Garcia was admitted to [facility] on 02/17/2024 via the [...] Hayder Graham and/or the Cardiac Surgery Physician Skiver Sock Linings Team may be reached at . Antibiotic [...] Dr. Hayder Graham. You may use a [place] Track or treadmill but avoid any pulling [...] while being managed by your PCP and/or Editor [employer]. For future medication refills, please refer to your PCP and/or [employer] after your discharge from our service. Thank you REMOVE CHEST TUBE SUTURES ON OR AFTER 03/02/24 Home oxygen therapy: N/A Follow up appointments: You should follow up with your PCP, Aparna Jordan APRN, in 1-2 weeks. Our office will schedule an appointment with your Editor Publications, Neftali Ernandez MD , in 2 weeks. You have an appointment with your Cardiac Surgeon, Dr. Hayder Graham, 4 weeks with a chest x-ray, EKG, and Echo before your appointment. Cardiac Rehabilitation: Karlos Garcia was seen regarding participation in the outpatient Phase 2Cardiac Rehabilitation at [facility]. The patient agrees to a referral to this program. The referral will be sent at discharge and the patient should be contacted by the Program within 1- 2 weeks from discharge. Future Appointments and Orders Future Orders Complete By Expires Echocardiogram Transthoracic [79671 CPT(R)] 03/26/2024 09/25/2024 Process Instructions: Scheduling Instructions: Questions: Where will study be performed?: [facility] Does the patient have Congenital Heart Disease?: Does patient require sedation?: Sedation rationale: XR Chest PA & Lateral (Generic) [64382 52465 Custom] 03/26/2024 09/25/2024 Process Instructions: Scheduling Instructions: Questions: Portable exam?: Reason for exam and clinical history: s/p avr/cabg Clinical information / jerome questions for radiologist: Stat read required?: Date of injury if applicable: Requested Time: Where will study be performed?: [facility] Radiology Referral to Cardiac Rehab [[id number] Custom] As directed Process Instructions: If no progress note charted, please enter Clinical details in comments. Scheduling Instructions: Questions: My question or request is: s/p AVR/CABG. Cardiac rehab at [facility]. Referral to Home Health [REF34 Custom] As directed Process Instructions: If no progress note charted, please enter Clinical details in comments. Scheduling Instructions: Comments: Please evaluate Karlos Garcia for admission to Home Health. [address] Phone Number: Date of : 1960 Inpatient DOCUMENTATION FOR VNA SERVICES (INCLUDING THOSE PATIENTS WITH MEDICARE COVERAGE REQUIRING HOME VNA SERVICES AND/OR HOSPICE SERVICES) PATIENT'S LOCATION: Karlos Garcia [address] [employer] [phone] Promos Executive Producer's Name: self/family In discussion with the attending physician, it is certified that this patient is under their care and that they, or a Nurse Practitioner, or Physician Skiver Sock Linings who is working directly with them, hada [...] for services as follows: HOME HEALTH AGENCY: [facility] [address] [place] [address] RN orders: Cardiopulmonary assessment, incisional assessment, assess [...] issues please call the Cardiology Office at [phone] FOR MEDICARE ONLY: (please delete this section [...] care: As above. Signed: NEFTALI MENON PA-C [facility] Section of Cardiac Surgery [facility] [address] FAX [phone] Date: 02/24/2024 CC: Aparna Jordan, MAURI Jordan, Aparna Sherman APRN [address] [place] [address] documented in this encounter Discharge Instructions * [...] Hayder Graham and/or the Cardiac Surgery Physician Skiver Sock Linings Team may be reached at . Antibiotic [...] Dr. Hayder Graham. You may use a [place] Track or treadmill but avoid any pulling [...] while being managed by your PCP and/or [employer]. For future medication refills, please refer to your PCP and/or Editor [employer] after your discharge from our service. Thank you REMOVE CHEST TUBE SUTURES ON OR AFTER 03/02/24 Home oxygen therapy: N/A Follow up appointments: You should follow up with your PCP, Aparna Jordan APRN, in 1-2 weeks. Our office will schedule an appointment with your Editor Publications, Neftali Ernandez MD , in 2 weeks. You have an appointment with your Cardiac Surgeon, Dr. Hayder Graham, 4 weeks with a chest x-ray, EKG, and Echo before your appointment. Cardiac Rehabilitation: Karlos Garcia was seen regarding participation in the outpatient Phase 2Cardiac Rehabilitation at [facility]. The patient agrees to a [...] 0600 and on the weekends please page [phone]. * Eric Barahona PA - 02/23/2024 9:27 [...] 0600 and on the weekends please page [phone]. * Tiffanie Owens, FUEL MANAGEMENT HANDLER - 02/22/2024 2:48 PM EDT Physical Therapy [...] d/c for 10 days. 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 He works Precautions/Special Considerations: STERNAL [...] LRAD and supervision Time IN / OUT: 0318-2842 Total Time: 30 minutes; TEFx2 Tiffanie Owens Pager: [phone] Physical Therapy Inpatient Rehabilitation Department * Romeo [...] 0600 and on the weekends please page [phone]. * Kelley Hinson FUEL MANAGEMENT HANDLER - 02/21/2024 10:15 AM EDT Physical Therapy [...] d/c for 10 days. 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 He works Precautions/Special Considerations: STERNAL [...] LRAD and supervision Time IN / OUT: 4270-5318 Total Time: 25 minutes; TEF 2 Kelley Hinson PTA Pager: [phone] Physical Therapy Inpatient Rehabilitation Department * Louisa [...] 0600 and on the weekends please page [phone]. * Kelley Hinson PTA - 02/20/2024 3:32 [...] at that time Kelley Hinson PTA Pager: [phone] Physical Therapy Inpatient Rehab Department * Louisa [...] 0600 and on the weekends please page [phone]. * Maris Benavides, PT - 02/19/2024 11:22 [...] d/c for 10 days. 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 He works. Precautions/Special Considerations: STERNAL [...] outlined inthis evaluation. MARIS BENAVIDES, PT Pager: [phone] Physical Therapy Inpatient Rehabilitation Department Time IN / OUT: 7567-7717 Total Time: 38 (eval) minutes; * Antonio [...] 0600 and on the weekends please page [phone]. * Minnie Begum PA - 02/18/2024 8:25 [...] 0600 and on the weekends please page [phone]. * Kim Ha RCP - 02/17/2024 2:25 [...] plan since last visit. Hayder Graham MD [phone] Source Note - Hayder Graham MD - [...] given written informed consent. Hayder Graham MD [phone] * Hayder Graham MD - 02/17/2024 7:00 [...] given written informed consent. Hayder Graham MD [phone] documented in this encounter Miscellaneous Notes * [...] information for follow-up Home Health & Hospice, [address] [place] [address] Cardiac Rehab, [address] [place] [address] Transportation: family or friend will provide Functional status prior to admission: Independent Home Environment: Others in the home: alone. Current Living Arrangements: home/apartment/condo. Accessibility Concerns:a few steps to enter 1 floor home. Current Functional Ability: Assistive Person and Equipment DME used at home: none DME Needed at Discharge: N/A Patient is insured through: Primary Insurance: [employer] Payor: [facility] / Plan: [facility] PPO / Product Type: *No [...] pain managed with scheduled Tylenol. Worked with [facility]. Ambulated in the roque multiple times during [...] is insured through: Primary Insurance: [facility] Payor: [facility] / Plan: [facility] PPO / Product Type: *No Product type* / Secondary Insurance: N/A Last Physical Therapy Recommendation: home with home health (Str coming to stay for a week or two upon d/c) with to be determined (owns rolling walker, shower seat) Plan for discharge is: Home w/ Services Outpatient Agency/Support Group Needs: Homecare agency Home Health Services: Physical Therapy, Registered Nurse Agency Referrals: [facility] [address] [place] [address] Transportation: family or friend will provide Barriers to discharge: Discharge planning Plan going forward: Service Care Management will continue to follow and assist with discharge planning and coordination of care as indicated. Anticipated Date of Discharge: 02/22/2024 Rhett Bell RN RN/CM - Cellphone: [phone] Pager: [phone] Covering Service RN/CM * Plan of Care [...] RN - 02/19/2024 10:44 AM EDT [facility] Karlos Garcia was seen today regarding participation in the outpatient Phase 2 Cardiac Rehabilitation at [facility]. 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 (Only good for 180 days) Any patient receiving care in [place] must abide by [place] law. The hierarchy for surrogate decision making [...] (i) The agent with financial power of state attorney or a conservator appointed in accordance [...] steady place to sleep or slept in [facility] (including now)?: No In the past 12 months has the [employer], gas, oil, or water [employer] threatened to shut off services in your [...] as: [address] [facility] [address] Physical address: [address] [facility], [address] Social & Family Supports: All names listed [...] noted Health/Prescription Coverage: Primary Insurance: [facility] Payor: [facility] / Plan: [facility] PPO / Product Type: *No Product type* / Secondary Insurance: N/A ; Prescription Coverage: Yes Preferred Pharmacy: [id number] [address] [place] Status: Patient is a : No Primary Care Provider confirmed: Aparna Jordan, MAURI [phone] Patient/Caregiver Goals of Treatment: dc to home Potential Needs for Transition of Care: home health care Agency Referrals: I have met with the patient to: discuss discharge planning needs. provide the [facility], Office of Care Management letter from the Toe Puller pertaining to rehab referrals. provide a letter describing our affiliations within the [facility] and educate about their right to choose where referrals are sent. provide a list of Home Health Agencies / Durable Medical Equipment vendors which serve their preferred geographic area. provided patient with [facility] Star Quality Rating handout. They have requested referrals to: [facility] [address] [place] [address] Note routed to a Case Assembler who will communicate referrals to facilities and [...] Reina Greene RN CM, BSN, CMGT-BC Ext [phone] * Plan of Care - Binta Trinidad [...] Appropriate) * Brief Op Note - Hayder Garham MD - 02/17/2024 12:46 PM EDT Brief Operative Note Patient Name: Karlos Garcia : [id number] MR#: [id number] Case Date: 02/17/2024 Surgeon: Surgeon(s) and Role: * Hayder Graham MD - Primary * Neftali Menon PA - Physician Skiver Sock Linings Preoperative diagnosis: CAD Postoperative diagnosis: CAD, intraoperative [...] mL Drains: Mediastinal and Left pleural Disposition: [facility] Condition: doing well without problems Attestation: Case Date: 02/17/2024 I performed this procedure without the involvement of a resident. HAYDER GRAHAM MD 02/17/2024 * Op Note - Hayder Graham MD - 02/17/2024 8:20 AM EDT [facility] Operative Note Patient Name: Karlos Garcia : [id number] MR#: [id number] Case Date: 02/17/2024 Surgeon: Surgeons and Role: * Hayder Graham MD - Primary * Neftali Menon PA - Physician Skiver Sock Linings Preoperative diagnosis: CAD Postoperative diagnosis: CAD, intraoperative [...] mL Drains: Mediastinal and Left pleural Disposition: [facility] Procedure Description: The patient was [...] PM EST Office Visit Cardiology at [address] [id number] Neftali Ernandez MD [facility] [place] [address] Scheduled Orders Name Type Priority Associated Diagnoses [...] Aortic Valve Open W Cardiopulmonary Bypass Homogrf/Stent (93140) Yes 02/17/2024 7:28 AM EDT CAD Cabg, Artery-Vein, Two (09936) Yes 02/17/2024 7:28 AM EDT CAD Cabg, Arterial, Single (56786) Yes 02/17/2024 7:28 AM EDT CAD Endoscopy W/Video-Asst Vein [place], Cabg (32284) Yes 02/17/2024 7:28 AM EDT CAD POCT [...] ORDERABLE S [facility] [place] [address] * (ABNORMAL) Basic Metabolic Panel (non-fasting) (02/23/2024 [...] CHEMISTRY ORDERABLES [facility] [place] [address] * Potassium (02/22/2024 4:30 AM EDT) Potassium [...] ORDERABLE S [facility] [place] [address] * (ABNORMAL) Basic Metabolic Panel (non-fasting) (02/21/2024 [...] [facility] Comment:Add-on request. Samwilly le too old to perform test. Anion [...] CHEMISTRY ORDERABLES [facility] [place] [address] * Lactate, whole blood, send to lab ([facility]) (02/21/2024 9:45 AM EDT) [facility] Lactate WB 2.0 0.5 - 2.2 mmol/L [facility] Blood 02/21/2024 9:45 AM EDT 02/21/2024 9:52 AM EDT Narrative Resulting Agency Comment Spec In Lab Hayder Graham MD CHEMISTRY ORDERABLE S Performing Organization Address [facility] Co de Phone Number [facility] [place] [address] * (ABNORMAL) Hepatic Function Panel (02/21/2024 9:45 AM EDT) [facility] Protein, Total 5.7(L) 6.1 - [...] ORDERABLE S [facility] [place] [address] * Lipase (02/21/2024 9:45 AM EDT) Lipase 56 0 - 60 unit/L [facility] Blood 02/21/2024 9:45 AM EDT 02/21/2024 9:52 AM EDT Narrative Resulting Agency Comment Spec In Lab Hayder Graham MD CHEMISTRY ORDERABLE S [facility] [place] [address] * Amylase (02/21/2024 9:45 AM EDT) Amylase 69 28 - 100 unit/L [facility] Blood 02/21/2024 9:45 AM EDT 02/21/2024 9:52 AM EDT Narrative Resulting Agency Comment Spec In Lab Hayder Graham MD CHEMISTRY ORDERABLE S Performing Organization Address City/[facility]/ZIP Co de Phone Number [facility] [place] [address] * Potassium (02/21/2024 3:08 AM EDT) Potassium [...] Narrative Resulting Agency Comment Spec In Lab aHyder Graham MD CHEMISTRY ORDERABLE S [facility] [place] [address] * XR Chest PA & Lateral (Generic) (02/20/2024 10:19 AM EDT) WORKSTATION ID [id number] [facility] Anatomical Region Laterality Modality Chest N/A Digital [...] signed by: Rogerio Cruz MD, [facility] ??([phone]), at 02/20/2024 1:11 PM Narrative 02/20/2024 1:11 PM EDT EXAMINATION: XR CHEST PA AND LATERAL (GENERIC) CLINICAL HISTORY: s/p AVR/CABGx3 TECHNIQUE: PA and lateral views of the chest COMPARISON: 02/17/2024 FINDINGS: Support devices: Interval removal of Cabot-Kaila catheter, endotracheal tube and mediastinal chest tubes The cardiac silhouette is stable status post median sternotomy, CABG and aortic valve replacement. There are small pleural effusions. No pneumothorax. Procedure Note Rogerio Cruz MD - 02/20/2024 EXAMINATION: XR CHEST PA AND LATERAL (GENERIC) CLINICAL HISTORY: s/p AVR/CABGx3 TECHNIQUE: PA and lateral views of the chest COMPARISON: 02/17/2024 FINDINGS: Support devices: Interval removal of [place]-Kaila catheter, endotracheal tubeand mediastinal chest tubes The [...] signed by: Rogerio Cruz MD, [facility]([phone]), at 02/20/2024 1:11 PM Hayder Graham MD IMG DX ORDERABLES * Scan, Peripheral Blood (02/20/2024 4:23 AM EDT) Pathologist [facility] Plat estimate Decreased [facility] RBC Morphology Normal [facility] Blood 02/20/2024 4:23 AM EDT 02/20/2024 4:42 AM EDT Narrative Resulting Agency Comment Spec In Lab Minnie FRENCH HEMATOLOGY CECILIO ALEMAN [facility] [place] [id number] * (ABNORMAL) Differential, Automated (02/20/2024 4:23 AM EDT) [facility] Neutrophil % 81.7 % [facility] Neutrophil Absolute 10.37(H) 1.70 - 6.10 x10(3)/mc L [facility] Lymph % 7.4 % [facility] Lymphocytes Abs 0.9 0.9 - 3.2 x10(3)/mc L [facility] Monocyte % 9.7 % [facility] Monocyte Abs 1.2(H) 0.3 - 0.9 x10(3)/mc L [facility] Eos % 0.1 % [facility] Eosinophils Abs 0.0 0.0 - 0.4 x10(3)/mc L [facility] Basophil % 0.2 % [place] [...] Absolute 0.12(H) 0.00 - 0.04 x10(3)/ L [facility] Blood 02/20/2024 4:23 AM EDT 02/20/2024 4:42 AM EDT Narrative Resulting Agency Comment Spec In Lab Minnie FRENCH HEMATOLOGY CECILIO ALEMAN [facility] [place] [address] * (ABNORMAL) Hemogram (02/20/2024 4:23 AM EDT) White Blood Cell 12.7(H) 4.0 - 9.5 x10(3)/[facility] Red Blood Cell 4.26(L) 4.58 - 5.54 x10(6)/ L [facility] Hemoglobin [...] MEDICAL CENTER LABORATORY NRBC% auto 0.0 % [facility] NRBC Absolute 0.000 0.000 - 0.000 x10(3)/mc L [facility] Blood 02/20/2024 4:23 AM EDT 02/20/2024 4:42 AM EDT Narrative Resulting Agency Comment Spec In Lab Minnie FRENCH HEMATOLOGY CECILIO ALEMAN [facility] [place] [address] * (ABNORMAL) Basic Metabolic Panel (non-fasting) (02/20/2024 4:23 AM EDT) Glucose 113 65 - 199 mg/dL [facility] Comment:Diabetes: >=200 mg/d L plus symptoms Blood Urea Nitrogen 20 10 - 20 mg/dL [facility] Comment:result rechecked-SC Creatinine 0.71(L) 0.80 - 1.50 mg/dL CENTRAL [...] ORDERABLE S Performing Organization Address [facility] Co de Phone Number [facility] [place] [address] * Potassium (02/19/2024 3:57 AM EDT) Potassium [...] ORDERABLE S Performing Organization Address [facility] Co de Phone Number [facility] [place] [address] * POCT Glucose (02/18/2024 8:24 AM EDT) Glucose, POC 157 65 - 199 mg/dL [facility] Comment: Supplemental ranges: <140 mg/dL before meals <180 mg/dL all other times of the day Blood 02/18/2024 8:24 AM EDT 02/18/2024 8:24 AM EDT Hayder Graham MD POINT OF CARE TEST ORDERABLES [facility] [place] [address] * Scan, Peripheral Blood (02/18/2024 1:40 AM EDT) Pathologist [facility] Plat estimate Decreased [facility] RBC Morphology Normal [facility] Blood 02/18/2024 1:40 AM EDT 02/18/2024 1:56 AM EDT Narrative Resulting Agency Comment Spec In Lab Neftali FRENCH HEMATOLOGY ORDER OLE Performing Organization Address City/[facility]/ZIP Co de Phone Number [facility] [place] [address] * (ABNORMAL) Differential, Automated (02/18/2024 1:40 AM EDT) [facility] Neutrophil % 87.1 % [facility] Neutrophil Absolute 15.03(H) 1.70 - 6.10 x10(3)/mc L [facility] Lymph % 3.0 % [facility] Lymphocytes Abs 0.5(L) 0.9 - 3.2 x10(3)/mc L [facility] Monocyte % 9.1 % [facility] Monocyte Abs 1.6(H) 0.3 - 0.9 x10(3)/mc L [facility] Eos % 0.0 % [facility] Eosinophils Abs 0.0 0.0 - 0.4 x10(3)/mc L [facility] Basophil % 0.2 % [place] [...] ORDER OLE [facility] [place] [address] * (ABNORMAL) Hemogram (02/18/2024 1:40 AM EDT) [...] MEDICAL CENTER LABOR[facility] NRBC% auto 0.0 % [facility] NRBC Absolute 0.000 0.000 - 0.000 x10(3)/mc L [facility] Blood 02/18/2024 1:40 AM EDT 02/18/2024 1:56 AM EDT Narrative Resulting Agency Comment Spec In Lab Neftali FRENCH HEMATOLOGY ORDER OLE [facility] [place] [address] * (ABNORMAL) Basic Metabolic Panel (non-fasting) (02/18/2024 [...] ORDERABLE S [facility] [place] [address] * (ABNORMAL) Troponin (02/18/2024 1:40 AM EDT) Troponin-T, High Sensitivity 342(H) <=22 ng/L [facility] [...] value can be found in the [facility] Laboratory Test Catalog Troponin - [facility] Laboratory Test Catalog Reference: Fourth Sarah Ann Definition of Myocardial Infarction. Journal of the [employer] 2018;72:4247-1583 Blood 02/18/2024 1:40 AM EDT 02/18/2024 1:56 AM EDT Narrative Resulting Agency Comment Spec In Lab Hayder Graham MD CHEMISTRY ORDERABLE S Performing Organization Address [facility] Co de Phone Number [facility] [place] [address] * POCT Glucose (02/17/2024 8:13 PM EDT) Glucose, POC 142 65 - 199 mg/dL [facility] Comment: Supplemental ranges: <140 mg/dL before meals <180 mg/dL all other times of the day Blood 02/17/2024 8:13 PM EDT 02/17/2024 8:13 PM EDT Hayder Graham MD POINT OF CARE TEST ORDERABLES Performing Organization Address [facility] de Phone Number [facility] [place] [address] * POCT Glucose (02/17/2024 5:42 PM EDT) Glucose, POC 160 65 - 199 mg/dL [facility] Comment: Supplemental ranges: <140 mg/dL before meals <180 mg/dL all other times of the day Blood 02/17/2024 5:42 PM EDT 02/17/2024 5:42 PM EDT Hayder Graham MD POINT OF CARE TEST ORDERABLES Performing Organization Address [facility] Co de Phone Number [facility] [place] [address] * Hemoglobin (02/17/2024 5:42 PM EDT) Hemoglobin 13.7 13.7 - 16.5 g/dL [facility] Blood 02/17/2024 5:42 PM EDT 02/17/2024 6:10 PM EDT Narrative Resulting Agency Comment Spec In Lab Hayder Graham MD HEMATOLOGY ORDERABL ES Performing Organization Address [facility]/ZIP Co de Phone Number [facility] [place] [address] * Potassium (02/17/2024 5:42 PM EDT) Pathologist [facility] Potassium 4.3 3.5 - 5.0 mmol/L CENTRAL [...] ORDERABLE S Performing Organization Address [facility] Co de Phone Number [facility] [place] [address] * (ABNORMAL) BLOOD GAS 2 ARTERIAL (02/17/2024 [...] MEDICAL CENTER LABORATORY FIO2 Art 40 % [facility] PF Ratio Art 195 [facility] Blood 02/17/2024 4:18 PM EDT 02/17/2024 4:18 PM EDT Hayder Graham MD POINT OF CARE TEST ORDERABLES Performing Organization Address City/State/[facility] Co de Phone Number [facility] [place] [address] * XR Chest One View (02/17/2024 1:44 PM EDT) Hashable WORKSTATION ID [id number] RAD Anatomical Region Laterality Modality Chest N/A Digital Radiogra phy Impressions 02/17/2024 2:12 PM EDT 1. ??No definite pleural fluid collection or pneumothorax. 2. ??Right IJ Cabot-Kaila catheter tip terminates in a descending branch [...] signed by: Denzel Hankins MD, [facility] ??([phone]), at 02/17/2024 2:12 PM Narrative 02/17/2024 2:12 PM EDT EXAMINATION: XR CHEST ONE VIEW CLINICAL HISTORY: s/p avr/cabg eval effusions TECHNIQUE: 1 view of the chest COMPARISON: Chest x-ray 01/09/2024, chest CT 02/03/2024 FINDINGS: ET tube tip terminates 5.2 cm above the carlos. Right IJ Cabot-Kaila catheter tip terminates in a descending branch [...] 5.2 cm above the carlos. Right IJ Cabot-Ganzcatheter tip terminates in a descending branch of [...] fluid collection or pneumothorax. 2. Right IJ Cabot-Kaila catheter tip terminates in a descending branch [...] signed by: Denzel Hankins MD, [facility]([phone]), at 02/17/2024 2:12 PM Hayder Graham MD [...] MEDICAL CENTER LABORATORY FIO2 Art 100 % [facility] PF Ratio Art 320 [facility] Blood 02/17/2024 1:31 PM EDT 02/17/2024 1:31 PM EDT Hayder Graham MD POINT OF CARE TEST ORDERABLES [facility] [place] [address] * (ABNORMAL) Coox2 (02/17/2024 1:21 PM EDT) [...] ORDERABLES [facility] [address] [place] [address] * (ABNORMAL) BLOOD GAS 2 ARTERIAL (02/17/2024 [...] TEST ORDERABLES Performing Organization Address [facility] Co de Phone Number [facility] [place] [address] * (ABNORMAL) Fibrinogen (02/17/2024 12:10 PM EDT) [...] ORDERABLE S Performing Organization Address [facility] Co de Phone Number [facility] [place] [address] * (ABNORMAL) Thrombin time (02/17/2024 12:10 PM [...] ORDERABLE S Performing Organization Address [facility] Co de Phone Number [facility] [place] [address] * APTT (02/17/2024 12:10 PM EDT) Partial [...] ORDERABLE S Performing Organization Address [facility]/ZIP Co de Phone Number [facility] [place] [address] * (ABNORMAL) Prothrombin Time (02/17/2024 12:10 PM [...] ORDERABLE S [facility] [place] [address] * (ABNORMAL) Hemogram (02/17/2024 12:10 PM EDT) [...] MEDICAL CENTER LABORATORY NRBC% auto 0.0 % [facility] NRBC Absolute 0.000 0.000 - 0.000 x10(3)/mc L [facility] Blood 02/17/2024 12:1 0 PM EDT 02/17/2024 12:19 PM EDT Narrative Resulting Agency Comment Spec In Lab Tara York MD HEMATOLOGY ORDERABLE S [facility] [place] [address] * (ABNORMAL) BLOOD GAS 2 ARTERIAL (02/17/2024 [...] MEDICAL CENTER LABORAT[facility] Comment: Noted by instrument mechanic weapons system. Please note: Patients with WBC >100,000 may [...] TEST ORDERABLES [facility] [place] [address] * (ABNORMAL) BLOOD GAS 2 ARTERIAL (02/17/2024 [...] MEDICAL CENTER LABORAT[facility] Comment: Noted by instrument mechanic weapons system. Please note: Patients with WBC >100,000 may [...] TEST ORDERABLES Performing Organization Address [facility]/ZIP Co de Phone Number [facility] [place] [address] * (ABNORMAL) Hemoglobin and Hematocrit, blood (02/17/2024 [...] ORDERABL ES Performing Organization Address [facility]/ZIP Co de Phone Number [facility] [place] [address] * (ABNORMAL) Platelet count (02/17/2024 11:04 AM EDT) Platelet 106(L) 145 - 357 x10(3)/mc L [facility] Immature Plt % 1.6 0.0 - 7.4 % [facility] Comment: Limitation of the Immature Platelet Fraction (IPF)-May be less reliable when the platelet count is less than 36h026/uL due to statistical imprecision. The IPF value [...] in a decreased state of production. References: [employer] The Clinical Value of the Immature Platelet Fraction (IPF) in Cell Recovery Document Number 10-1143 03/2011 [employer] The Role of the Immature Platelet Fraction (IPF) in the Differential Diagnosis of Thrombocytopenia, Document [id number] V002/15/14 P002/17 Blood 02/17/2024 11:0 4 AM EDT 02/17/2024 11:12 AM EDT Narrative Resulting Agency Comment Spec In Lab Hayder Graham MD HEMATOLOGY ORDERABL ES Performing Organization Address City/State/[facility] Co de Phone Number [facility] [place] [address] * (ABNORMAL) Fibrinogen (02/17/2024 11:04 AM EDT) [...] ORDERABL ES [facility] [place] [address] * (ABNORMAL) BLOOD GAS 2 ARTERIAL (02/17/2024 [...] TEST ORDERABLES [facility] [place] [address] * (ABNORMAL) BLOOD GAS 2 ARTERIAL (02/17/2024 [...] TEST ORDERABLES [facility] [place] [id number] * Surgical Pathology Report (02/17/2024 10:01 AM EDT) Final Diagnosis [id number] ? Location: [facility]; [facility]; The signing pathologist has (i) examined the relevant preparation(s) for the specimen(s) and (ii) rendered or confirmed the diagnosis(es). . ?Surgical Pathology DIAGNOSIS Aortic valve leaflets, excision: Valve leaflets with myxoid degeneration, nodular fibrosis and dystrophic calcifications. Electronically signed by: ?Lindsay FERNANDEZ, Livier Gonzalez Verified: ??02/24/2024 13:49 ??Pathologist Performed at: ??-[facility] Dept. of [place]ology, [place] [address] Toe Puller: Job Brewer MD, FCAP, ??CLIA Certificate: [id number] SPECIMEN(S) SUBMITTED A - Aortic Valve Leaflets, [...] Sections Processing Blocks submitted for decalcification: A1. Air Quality Engineer sections in 1 cassette labeled A1. ??ajw 02/24/2024 1:49 PM EDT [facility] AORTIC STRUCTURE / Unknown 02/17/2024 10:01 AM EDT 02/17/2024 10:01 AM EDT Hayder Graham MD PATHOLOGY/CYTOLOGY ORDERABLES Performing Organization Address City/[facility]/ZIP Co de Phone Number [facility] [place] [address] * Specimen to Pathology (02/17/2024 10:01 AM EDT) AP Specimen 02/17/2024 10:0 1 AM EDT 02/17/2024 10:01 AM EDT Narrative [facility] - 02/17/2024 10:01 AM EDT Specimen requisition ordered. ??Separate Pathology report to follow Hayder Graham MD PATHOLOGY/CYTOLOGY ORDERABLES Performing Organization Address City/[facility]/ZIP Co de Phone Number [facility] [place] [address] * (ABNORMAL) BLOOD GAS 2 ARTERIAL (02/17/2024 [...] TEST ORDERABLES [facility] [place] [address] * (ABNORMAL) BLOOD GAS 2 VENOUS (02/17/2024 9:34 AM EDT) pH, Venous 7.22(Criti marquez) 7.32 - 7.42 [facility] Comment:Noted by instrument mechanic weapons system. PCO2, Venous 43 41 - 51 mmHg [facility] Comment:Noted by instrument mechanic weapons system. PO2, Venous 57(H) 25 - 40 mmHg [facility] Comment:Noted by instrument mechanic weapons system. Bicarbonate, Venous 17.1 mmol/L [facility] Comment:Noted by instrument mechanic weapons system. Base Excess, Venous -10.6 mmol/L [facility] Comment:Noted by instrument mechanic weapons system. Hgb Blood Gas 11.2(L) 13.7 - 16.5 g/dL [facility] Comment:Noted by instrument mechanic weapons system. Oxyhemoglobin, Venous 86.5 % [facility] Comment:Noted by instrument mechanic weapons system. Carboxyhemoglob in, Venous 0.3 % [facility] Comment: Noted by instrument mechanic weapons system. Nonsmokers: 0.5-1.5% COHB Smokers: Variable, but usually less than 10% Toxic: 20-30% COHB Lethal: Greater than 60% COHB Methemoglobin, Venous 0.0 <=1.5 % [facility] Comment:Noted by instrument mechanic weapons system. Na Whole Blood 156(H) 135 - 145 mmol/L [facility] Comment:Noted by instrument mechanic weapons system. K Whole Blood 5.5(H) 3.5 - 5.0 mmol/L [facility] Comment: Noted by instrument mechanic weapons system. Please note: Patients with WBC >100,000 may have falsely elevated Potassium levels. Contact the Clinical Chemistry Laboratory if there are any questions. ICa Whole Blood 1.03(L) 1.15 - 1.33 mmol/L [facility] Comment: Noted by instrument mechanic weapons system. Note: ??Total bilirubin higher than 20 mg/dL may lead to falsely low ionized calcium. CL Whole Blood 100 98 - 107 mmol/L [facility] Comment:Noted by instrument mechanic weapons system. Gluc Whole Bld 132 65 - 199 mg/dL [facility] Comment: Noted by instrument mechanic weapons system. Diabetes: >=200 mg/dL plus symptoms Lactate WB 1.0 0.5 - 2.2 mmol/L [facility] Comment:Noted by instrument mechanic weapons system. Blood Gas Source Venous [facility] Blood 02/17/2024 9:34 AM EDT 02/17/2024 9:34 AM EDT Hayder Graham MD POINT OF CARE TEST ORDERABLES [facility] [place] [address] * (ABNORMAL) BLOOD GAS 2 ARTERIAL (02/17/2024 [...] TEST ORDERABLES Performing Organization Address [facility] Co de Phone Number [facility] [place] [address] * POCT Glucose (02/17/2024 6:38 AM EDT) Glucose, POC 98 65 - 199 mg/dL [facility] Comment: Supplemental ranges: <140 mg/dL before meals <180 mg/dL all other times of the day Blood 02/17/2024 6:38 AM EDT 02/17/2024 6:38 AM EDT Hayder Graham MD POINT OF CARE TEST ORDERABLES Performing Organization Address [facility] Co de Phone Number [facility] [place] [address] * Transesophageal Echo/OR (02/17/2024 6:33 AM EDT) [...] [facility] post-operative evaluation of cardiac [...] RN) 09 (Given - Provider: Mishel Merrill, COLBY)211 (Given [...] Britton, COLBY) 09 (Given - Provider: Mishel Merirll, COLBY)1500 (Given - Provider: Mishel Merrill RN)211 [...] IV, Routine 08 (Given - Provider: Reilly N [place], RN) 0907 (Given - Provider: Mishel Merrill, [...] Patient/family refused) 2100 (Not Given - Provider: Oits Crook RN - Reason: Patient/family refused) sodium chloride 0.9 % (flush) (BD PosiFlush Normal Saline 0.9) flush 5 mL 5 mL, Intravenous, EVERY 8 HOURS, First dose on Sat02/18/24 at 0930, Until Discontinued, Routine 0130 (Given - Provider: Polo Britton RN)0930 (Given - Provider: Reilly Vincent RN)1708 (Given - Provider: Ingrid Menjivar RN) 0130 (Given - Provider: Polo Britton RN)0908 (Given - Provider: Mishle Merrill, COLBY)1701 (Given - Provider: Mishel Merrill, [...] NS. 0121 (Given - Provider: Polo Britton, RN)0817 (Given - Provider: Reilly Vincent, COLBY)1409 [...] Routine documented in this encounter Care Teams Gaming Dealer Relationship Specialty Start Date End Date Aparna Jordan APRN PCP - General Family Medicine 10/21/23 05/26/24 documented as of this encounter
--- OUTSIDE RECORDS SUMMARY | 2024-07-07 13:19 | XMS_ITS | Encounter Summary ---
Author Organization [facility]ly [facility] [place] [address] Care Team Providers Care Tap And Die Maker Technician Name Role Phone Vanessa Christian MAURI Primary Care Provider [phone] Encounter Details Date Type Department Care Team (Latest Contact Info) Description 01/09/2024 3:00 PM EDT Laboratory [place] [phone] Nonrheumatic aortic valve stenosis Social History Tobacco [...] 3:00 PM EST Office Visit Cardiology at [address] [phone] Neftali Ernandez MD [facility] [address] [place] [address] documented as of this encounter Procedures Procedure Name Priority Date/Time Associated Diagnosis Comments ABORH RECHECK STATUS Routine 01/09/2024 2:58 PM EDT HEMOGRAM Routine 01/09/2024 2:58 PM EDT Nonrheumatic aortic valve stenosis DIFFERENTIAL, AUTOMATED Routine 01/09/2024 2:58 PM EDT Nonrheumatic aortic valve stenosis TYPE AND SCREEN, SDP (FUTURE SURGERY, [facility] [...] BANK LAB CECILIO ALEMAN [facility] [place] [address] * Differential, Automated (01/09/2024 2:58 PM EDT) Neutrophil % 70.5 % [facility] Neutrophil Absolute 4.34 1.70 - 6.10 x10(3)/[facility] Lymph % 18.9 % [facility] Lymphocytes Abs 1.2 0.9 - 3.2 x10(3)/[facility] LAB[facility] Monocyte % 8.0 % [facility] Monocyte Abs 0.5 0.3 - 0.9 x10(3)/[facility] LAB[facility] Eos % 1.6 % [facility] Eosinophils Abs 0.1 0.0 - 0.4 x10(3)/[facility] LAB[facility] Basophil % 0.5 % [facility] Baso Absolute 0.0 0.0 - 0.1 x10(3)/[facility] LAB[facility] Immature Gran % 0.50 % [facility] Comment: Immature granulocytes(IG's)percentage and absolute count will include metamyelocytes, myelocytes, and promyelocytes. Blood smears from CBCs yielding IG's will be scanned manually for concordance. If this scan disagrees with the automated IG or if promyelocytes are noted, a manual differential will be performed. Immature Gran Absolute 0.03 0.00 - 0.04 x10(3)/[facility] Blood 01/09/2024 2:58 PM EDT 01/09/2024 3:03 PM EDT Narrative Resulting Agency Comment Spec In Lab Zak Farmer MD HEMATOLOGY ORDERABL ES [facility] [place] [address] * Hemogram (01/09/2024 2:58 PM EDT) White Blood Cell 6.2 4.0 - 9.5 x10(3)/[facility] LAB[facility] Red Blood Cell 5.53 4.58 - 5.54 x10(6)/[facility] Hemoglobin 16.1 13.7 - 16.5 g/dL [facility] Hematocrit 46.9 40.5 - 48.5 % [facility] Mean Cell Volume 84.8 82.9 - 93.1 fL [facility] Mean Cell Hemoglobin 29.1 27.5 - 32.1 pg [facility] Mean Cell Hemoglobin Concentration 34.3 32.0 - 35.7 g/dL [facility] Platelet 187 145 - 357 x10(3)/[facility] LAB[facility] RDW Standard Deviation 39.2 36.0 - 45.0 fL [facility] RDW coefficient of variation 12.6 11.4 - 13.8 % [facility] Mean Platelet Volume 9.5 7.6 - 12.9 fL [facility] NRBC% auto 0.0 % [facility] NRBC Absolute 0.000 0.000 - 0.000 x10(3)/[facility] Blood 01/09/2024 2:58 PM EDT 01/09/2024 3:03 PM EDT Narrative Resulting Agency Comment Spec In Lab Zak Farmer MD HEMATOLOGY ORDERABL ES [facility] [place] [address] * Basic Metabolic Panel (non-fasting) (01/09/2024 2:58 [...] MD CHEMISTRY ORDERABLE S [facility] [place] [address] * Hepatic Function Panel (01/09/2024 2:58 PM [...] MD CHEMISTRY ORDERABLE S Performing Organization Address [facility] Co de Phone Number [facility] [place] [address] * Prothrombin Time (01/09/2024 2:58 PM EDT) [...] Organization Address [facility] Co de Phone Number [facility] [place] [address] * Type and Screen Future Surgery, [facility] ONLY) (01/09/2024 2:58 PM EDT) ABORH Type O NEGATIVE [facility] Patient BB History Not Found [facility] Expires at [id number] on: 02-20-2024 [facility] Ab Screen Interp Negative [facility] Blood 01/09/2024 2:58 PM EDT 01/09/2024 2:58 PM EDT Narrative Resulting Agency Comment Spec In Lab Zak Farmer MD BLOOD BANK LAB ORDE RABLES Performing Organization Address City/[facility]/ZIP [place] [address] documented in this encounter Visit Diagnoses Diagnosis Nonrheumatic aortic valve stenosis Aortic valve disorders documented in this encounter Care Teams Tap And Die Maker Technician Relationship Specialty Start Date End Date Vanessa Christian APRN PCP - General Family Medicine 10/21/23 05/26/24 documented as of this encounter
--- OUTSIDE RECORDS SUMMARY | 2024-07-07 13:19 | XMS_ITS | Encounter Summary ---
Author Organization [facility] [place] [address] Care Team Providers Care Offensive Coordinator Name Role Phone Vanessa Christian Lane DOTSON Primary Care Provider [phone] Encounter Details Date Type Department Care Team (Late st Contact Info) Description 01/09/2024 2:30 PM EDT Clinical Support Same Day at [facility] [place] [phone] Social History Tobacco Use Types Packs/Day Years Used Date Smoking Tobacco: Former Cigarettes Smokeless Tobacco: Never Comments:Quit 15 + years ago Alcohol Use Standard Drinks/Week Comments Yes 0 (1 standard drink = 0.6 oz pur e alcohol) rare [facility] Inpatient Questions Answer Date Recorded Prevent [...] you tube link for a video about [facility] cardiac surgery. Instructed to [...] type and screen performed while in the [facility]. Sent to Radiology for chest x-ray. Special medication instructions: None Procedure date: not booked. Darian documented in this encounter Plan of Treatment Upcoming Encounters Date Type Department Care Team (Late st Contact Info) Description 11/30/2024 3:00 PM EST Office Visit Cardiology at [address] [place] [address] Neftali Ernandez MD [facility] [address] documented as of this encounter Visit Diagnoses Not on filedocumented in this encounter Care Teams Offensive Coordinator Relationship Specialty Start Date End Date Vanessa Christian APRN PCP - General Family Medicine 10/21/23 05/26/24 documented as of this encounter
--- OUTSIDE RECORDS SUMMARY | 2024-07-07 13:19 | XMS_ITS | Encounter Summary ---
Author Organization [facility] [place] [address] Care Team Providers Care Aircraft Instrument Mechanic Name Role Phone Vanessa Christian COP BREAKER Primary Care Provider [phone] Reason for Referral * Diagnostic Test (Routine) - Closed Specialty Diagnoses / Procedures Referred By Contac t Referred To Contact Radiology Diagnoses Nonrheumatic aortic valve stenosis Procedures CT Chest wo Contrast (Generic) Louisa Reid PA [facility] [place] [address] [facility] [place] [address] Referral ID Status Reason Start Date Expiration Date V isits Requested Visits Authorized [id number] Closed Specialty Service Requested 01/10/2024 07/11/2025 1 1 Encounter Details Date Type Department Care Team (Late st Contact Info) Description 01/09/2024 Orders [place] [address] Zak Farmer MD [facility] [place] [address] Nonrheumatic aortic valve stenosis Social History Tobacco [...] PM EST Office Visit Cardiology at [address] [place] [address] Neftali Ernandez MD [facility] [place] [address] documented as of this encounter Results * CT Chest wo Contrast (Generic) (02/03/2024 7:44 AM EDT) WORKSTATION ID [id number] RAD Anatomical Region Laterality Modality Chest Computed [...] have questions please contact the health care manager cna that requested your imaging first. ? Electronically signed by: Rogerio Wright MD, [facility] ([phone]), at 02/03/2024 10:00 AM Narrative 02/03/2024 10:00 [...] nodule along the minor fissure (series [id number]) and a 8 mm right lower lobe [...] who have questions please contactthe health care manager cna that requested your imaging first. Electronically signed by: Rogerio Wright MD, [facility]([phone]), at 02/03/2024 10:00 AM Zak Farmer MD IMG CT ORDERABLES documented in this encounter Visit Diagnoses Diagnosis Nonrheumatic aortic valve stenosis Aortic valve disorders Nonrheumatic aortic valve stenosis Aortic valve disorders documented in this encounter Care Teams Aircraft Instrument Mechanic Relationship Specialty Start Date End Date Vanessa Christian APRN PCP - General Family Medicine 10/21/23 05/26/24 documented as of this encounter
--- OUTSIDE RECORDS SUMMARY | 2024-07-07 13:19 | XMS_ITS | Encounter Summary ---
Author Organization [facility] Address [facility] [place] [address] [id number] Care Team Providers Care Rn Forensic Name Role Phone Vanessa Christian MAURI Primary Care Provider [phone] Reason for Referral * Consultation (Routine) - Closed Specialty Diagnoses / Procedures Referred By Contac t Referred To Contact Cardiac Surgery Diagnoses Nonrheumatic aortic valve stenosis significant - TAVR ( defers to Card Surg d/t age) Errol Loya MD [facility] [address] Zak Farmer MD [facility] [place] [address] Referral ID Status Reason Start Date Expiration Date V isits Requested Visits Authorized [id number] Closed Consult, Test & Treat 10/21/2023 10/20/2024 1 1 Reason for Visit * Reason Comments Chest Pain Shortness of Breath Aortic Stenosis Encounter Details Date Type Department Care Team (Late st Contact Info) Description 10/21/2023 1:20 PM EST Office Visit Cardiology at [address] [phone] Errol Loya MD [facility] [place] [address] Nonrheumatic aortic valve stenosis Social History Tobacco [...] Problem List Diagnosis Aortic stenosis 12/2022 TTE (COUNT [facility]ES [facility]): VITA 0.8-0.9 cm2 (MG 28 mmHg, DOI 3.6 m/s, SVI 35 cc/m2). Trace regurgitation. Normal bi-v s/f, no other valve findings Gastroesophageal reflux Nevus of face Right yazidi Hypertension HLD (hyperlipidemia) MEDICATIONS: Current Outpatient Medications [...] the meantime will refer to T at [facility] for further evaluation. [...] the meantime will refer to T at [facility] for further evaluation. [...] PM EST Office Visit Cardiology at [address] [place] [phone] Errol Loya MD [facility] [address] Scheduled Referrals Name Type Priority Associated Diagnoses Order Schedule Amb Referral to Structural Heart Outpatient Referral Routine Nonrheumatic aortic valve stenosis Ordered: 10/21/2023 documented as of this encounter Visit Diagnoses Diagnosis Nonrheumatic aortic valve stenosis Aortic valve disorders documented in this encounter Care Teams Rn Forensic Relationship Specialty Start Date End Date Vanessa Christian APRN PCP - General Family Medicine 10/21/23 05/26/24 documented as of this encounter
--- OUTSIDE RECORDS SUMMARY | 2024-07-07 13:19 | XMS_ITS | Encounter Summary ---
Author Organization [facility] [place] [address] Care Team Providers Care Operations General Agent Name Role Phone Victor M Lafleur MD Primary Care Provider [phone] Encounter Details Date Type Department Care Team (Late st Contact Info) Description 09/26/2023 Abstract Cardiology at [address] [phone] Karen Billy, RN Nonrheumatic [...] PM EST Office Visit Cardiology at [address] [place] [address] Neftali Ernandez MD [facility] [place] [address] documented as of this encounter Visit Diagnoses Diagnosis Nonrheumatic aortic valve stenosis Aortic valve disorders Nevus of face Benign neoplasm of skin of other and unspecified parts of face documented in this encounter Care Teams Operations General Agent Relationship Specialty Start Date End Date Victor M Lafleur MD PCP - General 10/02/13 10/20/23 documented as of this encounter
--- OUTSIDE RECORDS SUMMARY | 2024-07-07 13:19 | XMS_ITS | Encounter Summary ---
Author Organization [facility] [place] [address] Care Team Providers Care Casing Tier Name Role Phone Vanessa Christian APRN Primary Care Provider [phone] Encounter Details Date Type Department Care Team (Late st Contact Info) Description 10/21/2023 Abstract Cardiology at [address] [place] [phone] Adam Mayes RN Social History Tobacco Use [...] PM EST Office Visit Cardiology at [address] [place] [address] Neftali Ernandez MD [facility] [place] [address] documented as of this encounter Visit Diagnoses Not on filedocumented in this encounter Care Teams Casing Tier Relationship Specialty Start Date End Date Vanessa Christian APRN PCP - General Family Medicine 10/21/23 05/26/24 documented as of this encounter
--- OUTSIDE RECORDS SUMMARY | 2024-07-07 13:19 | XMS_ITS | Encounter Summary ---
Author Organization [facility] [place] [address] Care Team Providers Care Resistance Machine Welder Setter Name Role Phone Vanessa Christian APRN Primary Care Provider [phone] Encounter Details Date Type Department Care Team [...] PM EST Office Visit Cardiology at [address] [place] [phone] Neftali Ernandez MD [facility] [place] [address] documented as of this encounter Visit Diagnoses Not on filedocumented in this encounter Care Teams Resistance Machine Welder Setter Relationship Specialty Start Date End Date Vanessa Christian APRN PCP - General Family Medicine 10/21/23 05/26/24 documented as of this encounter
--- OUTSIDE RECORDS SUMMARY | 2024-07-07 13:19 | XMS_ITS | Encounter Summary ---
Author Organization [facility] [place] [address] Care Team Providers Care Senior Agricultural Assistant Name Role Phone Vanessa Christian APRN Primary Care Provider [phone] Encounter Details Date Type Department Care Team (Late st Contact Info) Description 10/21/2023 Abstract Cardiology at [address] [phone] Adam Mayes RN Social History Tobacco Use [...] PM EST Office Visit Cardiology at [address] [address] Neftali Ernandez MD [facility] [place] [address] documented as of this encounter Visit Diagnoses Not on filedocumented in this encounter Care Teams Senior Agricultural Assistant Relationship Specialty Start Date End Date Vanessa Christian APRN PCP - General Family Medicine 10/21/23 05/26/24 documented as of this encounter
--- OUTSIDE RECORDS SUMMARY | 2024-07-07 13:19 | XMS_ITS | Encounter Summary ---
Author Organization [facility] [place] [address] Care Team Providers Care Regional Telecommunications Specialist Name Role Phone Vanessa Christian APRN Primary Care Provider [phone] Encounter Details Date Type Department Care Team (Late st Contact Info) Description 12/26/2023 Notes Only Cardiology at [address] [phone] Neftali Ernandez MD [facility] [place] [address] Social History Tobacco Use Types Packs/Day Years [...] EDT Echocardiogram images reviewed from [facility]. Indeed, the aortic valve appears severely stenotic. Cannotrule out bicuspid valve documented in this encounter Plan of Treatment Upcoming Encounters Date Type Department Care Team (Late st Contact Info) Description 11/30/2024 3:00 PM EST Office Visit Cardiology at [address] [phone] Neftali Ernandez MD [facility] [place] [address] documented as of this encounter Visit Diagnoses Not on filedocumented in this encounter Care Teams Regional Telecommunications Specialist Relationship Specialty Start Date End Date Vanessa Christian APRN PCP - General Family Medicine 10/21/23 05/26/24 documented as of this encounter
--- OUTSIDE RECORDS SUMMARY | 2024-07-07 13:19 | XMS_ITS | Data Portability ---
Author Organization [place] - [facility] Address [address] [place] [address] Care Team Providers Care Air Breaker Operator Name Role Phone VANESSA JORDAN Primary Care Provider [phone] Assessment No assessment recorded. Plan of Treatment Reminders Order Date Submit Date Provider Last Modified By Organization Details Last Modified Time Details Appointments None recorded . Lab magnesiu m, serum or plasma 024 12/18/19 24 [id number] [facility] (Registration ), [address] [place] [address] [place], [address], 4 14:25:25 BMP, serum or plasma 024 12/18/19 24 [facility] (Registration ), [address] [place] [address] [place], [address], 4 14:25:24 Referral None recorded . Procedures None recorded . Surgeries None recorded . Imaging None recorded . Medication Orders None recorded . Patient TargetsNo targets recorded. Patient Instructions Encounter Date Encounter Id Patient Instructions Last Modified By Organization Details Last Modified Time 09/19/2023 [id number] SCHEDULE FOLLOW UP IN 3 MONTHS IF YOU DONT HEAR FROM THE CARDIOLOGY DEPT THIS WEEK CALL [facility] SALES REPRESENTATIVE METALS AND LET THEM KNOW IF YOUR BREATHING GETS WORSE- GO TO THE ER, DONT OVER DO THINGS PHYSICALLY EXPECT A CALL FROM SARA ZAFAR RE: UPDATING YOUR POWER OF CLEAN IN PLACES OPERATOR (NEED 2 WITNESSED SIGNATURES) Not available 09/19/2023 09:25:07 12/18/2023 [id number] Karlos: expect a call from the STructural heart team at [facility] drink at least 6 glasses of water a day. checking kidney function and magnesium labs today will mail home. follow up in 3 months for BPH, Aortic stenosis. 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 for Referral Pillow Filler Referral for Roland ateral hearing loss Referring Physician: Vanessa Jordan, Family Medicine, Encounter Date: 02/26/2024 Results Created Date Observation Date Name Description Value Unit Range Abnormal Flag Note LastModifiedBy Organization Detail LastModifiedTime 12/18/19 24 12/18/2023 LASIC METAB OLIC PANEL calcium 9.3 mg/dL 8.5-10 .1 normal Not Available [address] [place], [address] 12/18/2023 17:09:55 12/18/19 24 12/18/2023 LASIC METAB OLIC PANEL glucose 90 mg/dL 74-106 normal Not Available Baljit montemayor [address] [place], [address] 12/18/2023 17:09:55 12/18/19 24 12/18/2023 LASIC METAB OLIC PANEL BUN 14 mg/dL 7-18 normal Not Available Baljit montemayor [address] [place], [address] 12/18/2023 17:09:55 12/18/19 24 12/18/2023 LASIC METAB OLIC PANEL creatinine 1.0 mg/dL 0.70-1 .30 normal Not Available [address] [place], [address] 12/18/2023 17:09:55 12/18/19 24 12/18/2023 LASIC METAB [...] young er-ag ed adult s. Not Available [address] [place], [address] 12/18/2023 17:09:55 12/18/19 24 12/18/2023 LASIC METAB OLIC PANEL sodium 139 mmol/ L 136-14 5 normal Not Available [address] [place], [address] 12/18/2023 17:09:55 12/18/19 24 12/18/2023 LASIC METAB OLIC PANEL potassium 4.9 mmol/ L 3.5-5. 1 normal Not Available [address] [place], [address] 12/18/2023 17:09:55 12/18/19 24 12/18/2023 LASIC METAB OLIC PANEL chloride 104 mmol/ L 98-107 normal Not Available [address] [place], [address] 12/18/2023 17:09:55 12/18/19 24 12/18/2023 LASIC METAB OLIC PANEL CO2 30.9 mmol/ L 21.0-3 2.0 normal Not Available [address] [place], [address] 12/18/2023 17:09:55 12/18/19 24 12/18/2023 LASIC METAB OLIC PANEL anion gap 4.1 mmol/ L 3-11 normal Not Available [address] [place], [address] 12/18/2023 17:09:55 12/18/19 24 12/18/2023 MAGNE SIUM magnesium 1.8 mg/dL 1.8-2. 4 normal Not Available [address] [place], [address] 12/18/2023 17:09:56 09/11/20 23 12/05/2022 trans -thor acic echoc ardio gram (TTE) (PROC ) No observ ation record ed. [email or web address] [facility] Xray [address] , [place], [address], 09/13/2023 09:29:52 09/11/20 23 06/01/2022 XR, hip, unila teral No observ ation record ed. [email or web address] Not Available 2022 09:29:19 09/11/20 23 12/06/2019 US, echoc ardio gram No observ ation record ed. [email or web address] [facility]- Cardiology [facility], [place], [address], 09/13/2023 09:28:49 Result Notes None recorded. Problems Name Problem SNOMED Code Status Onset Date Resolution Date Notes Provider Name and Address Organization Details Recorded Time Gastroes ophageal reflux disease without esophagi tis 478009914 Active 2022 Problem Code: K21.9; Problem Code Type: ICD-10; Not Available [facility] 4 05:35:57 Glaucoma 68091780 Active 2022 Problem Code: H40.9; Problem Code Type: ICD-10; Not Available [facility] 4 05:35:57 Hyperlip idemia 42387163 Active 2022 Problem Code: E78.5; Problem Code Type: ICD-10; Not Available [facility] 4 05:35:57 [facility] hyperten niels 79772489 Active 2022 Problem Code: I10; Problem Code Type: ICD-10; Not Available [facility] 4 05:35:57 Pain of left hip joint 23987454127 9100 Active 2022 Problem Code: M25.552; Problem Code Type: ICD-10; Not Available [facility] 4 05:35:57 Idiopath ic osteoart hritis 187231177 Active 2022 Problem Code: M16.12; Problem Code Type: ICD-10; Not Available [facility] 4 05:35:57 Inguinal hernia 438597877 Active 2022 Problem Code: K40.90; Problem Code Type: ICD-10; Not Available [facility] 4 05:35:57 Heart murmur 42946811 Active 2022 Problem Code: R01.1; Problem Code Type: ICD-10; Not Available [facility] 4 05:35:57 Dyspnea 635499710 Active 2022 Problem Code: R06.09; Problem Code Type: ICD-10; Not Available [facility] 4 05:35:57 Chest pain 25186806 Active 2022 Problem Code: R07.89; Problem Code Type: ICD-10; Not Available [facility] 4 05:35:57 Melanocy tic nevus 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 Active 2022 Problem Code: D22.9; Problem Code Type: ICD-10; Not Available [facility] 4 05:35:57 Aortic stenosis , non-rheu matic 679957228 Active 2022 Problem Code: I35.0; Problem Code Type: ICD-10; Not Available [facility] 4 05:35:58 Aortic stenosis , non-rheu matic 020991909 Completed 202208/14/2023 Problem Code: I35.0; Problem Code Type: ICD-10; Not Available [facility] 4 05:35:58 Indigest ion 774750461 Active 2023 GLORIA CAMP LPN null, [facility] 4 08:48:57 Coronary artery bypass grafts x 3 Active 2023 Kelly Duran RN [facility], [facility] 4 10:30:01 At increase d risk of atrial fibrilla tion 212930867 Active [address], [place], [address] , [facility] 4 13:52:01 Anemia 271799625 Active [address], [place], [address] , [facility] 4 13:54:39 Problem Notes None recorded. Procedures Surgical History Date Name Laterality Status Provider Name and Address Organization Details Recorded Time coronary artery bypass graft completed Hudson Reeder [place] [facility] 03/04/2024 14:54:09 Imaging Results Imaging Date Name Status LastModified by Organization Details LastModified Time 12/05/2022 trans-thoracic echocardiogram (TTE) (PROC) completed [address] Xray [address] , [place], [address], 09/13/2023 09:29:52 06/01/2022 XR, hip, unilateral [place] [address] Information not available 09/13/2023 09:29:19 12/06/2019 US, echocardiogram completed [address]- Cardiology [address] , [place], [address], 09/13/2023 09:28:49 Procedure Notes None recorded. Medical [...] es. Take 1 hr prior. Started by [facility]. Not Available Not Available Not Available doxycycli [...] BY MOUTH DAILY 02/24 completed stopped by [facility] Not Available Not Available Not Available brimonidi [...] hours by oral route as needed. active [facility] Not Available Not Available No t Available Aspirin Childrens 81 mg chewable tablet Take 1 tablet by mouth once a day active Not Available Not Available No t Available lisinopri l 5 mg tablet TAKE 1 TABLET BY MOUTH EVERY DAY 02/24 completed stopped by [facility] Not Available Not Available Not Available mupirocin [...] day by oral route. active started by [facility] Not Available Not Available Not Available dorzolami de 2 % (PF) eye drops 1 drop both eyes bid 12/17 completed Not Available Not Available Not Available Vitals Date Recorded Body weight Body mass index (BMI) Body height Heart rate Systolic blood pressure Diastolic blood pressure Provider Name and Address Organization Details Last Updated DateTime 3 97857.7 8 g 23.7 kg/m2 167.64 cm 64 /min 110 mm[Hg] 60 mm[Hg] GLORIA CAMP LPN [facility]. 3 08:48:49 Date Recorded Body height Body mass index (BMI) Body weight Heart rate Systolic blood pressure Diastolic blood pressure Provider Name and Address Organization Details Last Updated DateTime 4 167.64 cm 24.6 kg/m2 08867.4 4 g 60 /min 112 mm[Hg] 80 mm[Hg] GLORIA CAMP LPN [facility] 4 08:38:13 Date Recorded Body height Body mass index (BMI) Body weight Heart rate Oxygen saturation Oxygen saturation in Arterial blood by Pulse oximetry Systolic blood pressure Diastolic blood pressure Provider Name and Address Organization Details Last Updated DateTime 4 167.64 cm 22.6 kg/m2 07700.6 5 g 63 /min 99 % 99 % 102 mm[Hg] 54 mm[Hg] Hudson Reeder MA [facility] 4 10:27:28 Social History Question Answer Notes LastModified by Organizat ion Details LastModified Time Tobacco Smoking Status Former Smoker Hudson Reeder MA null, [facility] 03/06/2024 10:24:50 Do You Have An Advance Directive? Yes Registered 08/15/23 Updated 01/12/24 Information not available 01/15/2024 When Did You Quit Smoking? 11-15years sincelastc igarette [email or web address] Information not available 03/06/2024 Do You Have A Medical Power Of Case Management Coordinator? Yes Received 08/30/23, Scanned. Copies Sent To [facility] And Patient 09/02/23. Information not available 09/02/2023 What Was The Date Of Your Most Recent Tobacco Screening? 03/06/2024 [email or web address] Information not available 03/06/2024 What Is Your Current Pack Years? 30ormorepa ckyears [email or web address] Information not available 03/06/2024 How Much Tobacco Do You Smoke? 1 PPD [email or web address] Information not available 03/06/2024 How Many Years Have You Smoked Tobacco? 40 [email or web address] Information not available 03/06/2024 Do You Or Have You Ever Used Any Other Forms Of Tobacco Or Nicotine? No [email or web address] Information not available 03/06/2024 Sex: Male Functional [...] Recorded Time Tdap 08/26/2013 completed Not Available [facility] 05:30:17 Td(adult) unspecified formulation 11/21/2022 completed Not Available [facility] 10/18/2023 05:30:17 COVID-19, mRNA, LNP-S, PF, 100 mcg/0.5mL dose or 50 mcg/0.25mL dose 01/24/2021 completed Not Available [facility] 10/18/19 05:30:18 COVID-19, mRNA, LNP-S, PF, 100 mcg/0.5mL dose or 50 mcg/0.25mL dose 02/21/2021 completed Not Available [facility] 10/18/19 05:30:18 COVID-19, mRNA, LNP-S, PF, 100 mcg/0.5mL dose or 50 mcg/0.25mL dose 09/11/2021 completed Not Available [facility] 10/18/19 05:30:18 influenza, unspecified formulation 07/26/2021 completed Not Available [facility] 10/18/2023 05:30:18 influenza, unspecified formulation 07/26/2022 completed Not Available [facility] 10/18/2023 05:30:18 influenza, unspecified formulation 07/28/2020 completed Not Available [facility] 10/18/2023 05:30:18 influenza, unspecified formulation 08/05/2019 completed Not Available [facility] 10/18/2023 05:30:18 influenza, unspecified formulation 08/12/2018 completed Not Available [facility] 10/18/2023 05:30:18 Past Encounters Encounter ID Performer Location Encounter Start Date Encounter Closed Date Diagnosis/Indication Diagnosis SNOMED-CT Code Diagnosis ICD10 Code [id number] [address] [address] 09/19/2023 08:39:51 09/19/2023 09:17:42 Aortic valve stenosis 48077057 I35.0 Essential hypertension 04129701 I10 [id number] [address] [address] 12/18/2023 08:23:47 12/18/2023 09:29:09 Aortic stenosis, non-rheumatic 573317632 I35.0 Essential hypertension 01831422 I10 Nonulcer dyspepsia 07855 07 K30 Cramp in lower leg 95800 8009 R25.2 [id number] TATYANA LEDEZMA MD [address] [address] 03/06/2024 10:15:07 03/06/2024 11:14:28 Postoperative visit 460051017 Z48.89 Aortic orsa m nosis, non-rheumatic 223391811 I35.0 Stented co ronary artery 821675061 Z95.5 At replaced by [facility] risk of atrial fibrillation 611149237 Z91.89 Anemia 835362805 D64.9 Health Concerns Section Related Observation LastModified by Organization Detai ls LastModified Time None Recorded Concern Status LastModified by Organization Details LastModified Time None Recorded Advance Directives Directive Y: Registered 08/15/23Updated 01/12/24 Payers Encounter Date Sequence Insurance Name Policy Number Policy Alicia Covered Member ID Alicia Member ID Guarantor Name 12/18/2023 1 [employer] [id number] Karlos C Patenaude [id number] Karlos C Patenaude 03/06/2024 1 UMR [id number] Karlos C Patenaude [id number] Karlos C Patenaude Notes Date Note Type Note Provider Name and Address Organization Details Recorded Time 09/19/2023 text/html HPI Notes: 63-year-old man here for follow-up hypertension, severe aortic stenosis., He works full-time at [employer]. He lives at home with his dog. He has not heard from [facility] cardiology? referred mid-August. He did [...] trivial to mild aortic insufficiency. Vanessa lizarraga [place] [employer] [facility]. 09/19/2023 13:31:38 12/18/2023 text/html HPI Notes: 63-year-old man here for follow-up hypertension, severe aortic stenosis., He works full-time at [employer]. He lives at home with his dog. [...] repair a number of years ago at [facility], it is starting to cause some discomfort. Reports leg cramps at nighttime intermittently, improves when he has a Gatorade during the daytime and Ovaltine in his coffee. Vanessa lizarraga [place] [employer] [facility]. 12/18/2023 11:43:00 03/06/2024 text/html HPI Notes: Ana Paula marlow is here today for a postop evaluation TATYANA LEDEZMA MD [address], [place], [address], [facility]. 03/08/2024 13:57:34
--- OUTSIDE RECORDS SUMMARY | 2024-07-07 13:19 | XMS_ITS | Encounter Summary ---
Author Organization [facility] Address [facility] [place] [address] Care Team Providers Care Biochemical Engineer Name Role Phone Vanessa Christian MAURI Primary Care Provider Encounter Details Date Type Department Care Team (Latest Contact Info) Description 01/09/2024 3:02 PM EDT - 01/09/2024 11:59 PM EDT Hospital Encounter XRay at [address] [place] [address] Zak Farmer MD [facility] [place] [address] Nonrheumatic aortic valve stenosis Discharge Disposition: Home [...] PM EST Office Visit Cardiology at [address] [place] [address] Neftali Ernandez MD [facility] [place] [address] documented as of this encounter Procedures Procedure [...] who have questions please contact the health small animal caretaker that requested your imaging first. ? [...] patients who have questions please contactthe health small animal caretaker that requested your imaging first. Zak Farmer MD IMG DX ORDERABLES documented in this encounter Visit Diagnoses Diagnosis Nonrheumatic aortic valve stenosis Aortic valve disorders documented in this encounter Care Teams Biochemical Engineer Relationship Specialty Start Date End Date Vanessa Christian APRN PCP - General Family Medicine 10/21/23 05/26/24 documented as of this encounter
--- OUTSIDE RECORDS SUMMARY | 2024-07-07 13:19 | XMS_ITS | Encounter Summary ---
Author Organization [facility] [place] [address] Care Team Providers Care Telecommunications Analyst Name Role Phone Vanessa Christian APRN Primary Care Provider [phone] Encounter Details Date Type Department Care Team [...] PM EST Office Visit Cardiology at [address] [place] [address] Neftali Ernandez MD [facility] [place] [address] documented as of this encounter Visit Diagnoses Not on filedocumented in this encounter Care Teams Telecommunications Analyst Relationship Specialty Start Date End Date Vanessa Christian APRN PCP - General Family Medicine 10/21/23 05/26/24 documented as of this encounter
--- OUTSIDE RECORDS SUMMARY | 2024-07-07 13:19 | XMS_ITS | Encounter Summary ---
[place] [address] Care Team Providers Care Mortgage Loan Officer Name Role Phone Victor M Lafleur MD Primary Care Provider [phone] Reason for Visit * Reason Onset Date Comments Referral 09/20/2023 Encounter Details Date Type Department Care Team (Late st Contact Info) Description 09/20/2023 Telephone Cardiology at [address] [address] Karen Billy, electrotyper Social History Tobacco Use Types Packs/Day Years [...] PM EST Office Visit Cardiology at [address] [place] [address] Neftali Ernandez MD [facility] [place] [address] documented as of this encounter Visit Diagnoses Not on filedocumented in this encounter Care Teams Mortgage Loan Officer Relationship Specialty Start Date End Date Victor M Lafleur MD PCP - General 10/02/13 10/20/23 documented as of this encounter
--- OUTSIDE RECORDS SUMMARY | 2024-07-07 13:19 | XMS_ITS | Encounter Summary ---
Author Organization [facility] Address [facility] [place] [address] Care Team Providers Care Event Technician Name Role Phone Vanessa Christian MAURI Primary Care Provider [phone] Reason for Visit * Consultation (Routine) - Closed Specialty Diagnoses / Procedures Referred By Contac t Referred To Contact Cardiac Surgery Diagnoses Nonrheumatic aortic valve stenosis significant - TAVR ( defers to Card Surg d/t age) Neftali Ernandez MD [facility] [place] [address] Zak Farmer MD [facility] CARDIOTHORACIC [place] [address] Referral ID Status Reason Start Date Expiration Date V isits Requested Visits Authorized [id number] Closed Consult, Test & Treat 10/21/2023 10/20/2024 1 1 Encounter Details Date Type Department Care Team (Late st Contact Info) Description 01/09/2024 1:40 PM EDT Office [place] [address] Zak Farmer MD [facility] CARDIOTHORACIC [place] [address] Nonrheumatic aortic valve stenosis [...] office. Best personal regards, Zak Farmer MD [phone] In aggregate 55 minutes were spent evaluating [...] PM EST Office Visit Cardiology at [address] [place] [address] Neftali Ernandez MD [facility] [place] [address] documented as of this encounter Results * [...] questions please contact the health direct care specialist that requested your imaging first. [...] have questions please contactthe health direct care specialist that requested your imaging first. [...] CHEMISTRY ORDERABLE S [facility] [place] [address] * Hepatic Function Panel (01/09/2024 2:58 PM [...] S Performing Organization Address [facility] Co de Phone Number [facility] [place] [address] * Prothrombin Time (01/09/2024 2:58 PM EDT) [facility] Prothrombin Time 10.6 9.4 - 12.5 sec [...] ES Performing Organization Address [facility]/ZIP Co de Phone Number [facility] [place] [address] * Type and Screen Future Surgery, [facility] SAME DAY PROGRAM ONLY) (01/09/2024 2:58 PM [...] MD BLOOD BANK LAB CECILIO ALEMAN [facility] [place]) Organization Address City/State/ZIP Co de Phone Number [facility] [place] [address] documented in this encounter Visit Diagnoses Diagnosis Nonrheumatic aortic valve stenosis Aortic valve disorders Nonrheumatic aortic valve stenosis Aortic valve disorders documented in this encounter Care Teams Event Technician Relationship Specialty Start Date End Date Vanessa Christian APRN PCP - General Family Medicine 10/21/23 05/26/24 documented as of this encounter
[2024-07-07 13:22] VITALS: BP 127/62; PULSE 49
[2024-07-09 10:04] VITALS: BP 125/67; PULSE 56; O2SAT 98
--- OUTSIDE RECORDS SUMMARY | 2024-07-09 10:06 | XMS_ITS | Referral Summary ---
Author Organization [facility] Address [address] [place] [address] Care Team Providers Care Employment Interviewer Name Role Phone Filidayna Vanessa Sherman NP Primary Care Provider [phone] Social History Tobacco Use Types Packs/Day Years Used Date Smoking Tobacco: Never Assessed Sex and Gender Information Value Date Recorded Sex Assigned at Not on file Gender Identity Not on file Sexual Orientation Not on file Plan of Treatment Not on file Care Teams Employment Interviewer Relationship Specialty Start Date End Date Vanessa Christian NP [address] [place] [address] PCP - General Family Medicine - Primary Care 10/07/23
--- OUTSIDE RECORDS SUMMARY | 2024-07-09 10:06 | XMS_ITS | Encounter Summary ---
Author Organization [facility] Address [address] [place] [address] Care Team Providers Care Disabilities Services Officer Name Role Phone Vanessa Christian Lane MONCADA Primary Care Provider Encounter Details Date Type Department Care Team (Late st Contact Info) Description 10/24/2023 Lab Requisition [facility] Pathology & Laboratory Medicine - [address] [address] Oscar Nichole MD [address] [place] [address] [phone] Factitial dermatitis Social History Tobacco Use Types [...] management options, if applicable. 10/28/2023 11:24 EST [facility] Final Diagnosis A. SKIN OF ROMAN CATHOLIC, LEFT, SHAVE BIOPSY: - Seborrheic keratosis, pigmented. 10/28/2023 11:24 EST [facility] Attestation By the signature below, the attending physician certifies that they have 1) personally conducted a gross and/or microscopic examination of the described specimen(s), and/or personally interpreted the results of laboratory testing of the described specimen(s), and 2) personally rendered or confirmed the above diagnosis. 10/28/2023 11:24 [facility] at [address] Microscopic Description The stratum corneum is thickened by compact and basketweave orthokeratosis with formation of horn pseudocysts. The epidermis is acanthotic with formation of broad and anastomosing trabeculae. The trabeculae are composed of basaloid keratinocytes with round uniform nuclei. The keratinocytes have a variable amount of melanin pigment. 10/28/2023 11:24 [facility] Clinical History Pigmented 2 cm patch; clinical diagnosis code: L98.1 10/28/2023 11:24 [facility] Gross Description A. [...] A3. Nora Anderson 10/25/2023 8:47 10/28/2023 11:24 [facility] Performing Lab [facility] 10/28/2023 11:24 [facility] Scanned Images 10/28/2023 11:24 [facility] Tissue SPECIMEN FROM SKIN / Unknown 10/24/2023 14:30 EST 10/24/2023 22:04 EST Oscar Nichole MD PATHOLOGY ORDERABLES [facility] [address] [place] [address] documented in this encounter Visit Diagnoses Diagnosis Factitial dermatitis Dermatitis factitia (artefacta) documented in this encounter Care Teams Disabilities Services Officer Relationship Specialty Start Date End Date Vanessa Christian NP [address] [place] [address] PCP - General Family Medicine - Primary Care 10/07/23 documented as of this encounter
--- OUTSIDE RECORDS SUMMARY | 2024-07-09 10:06 | XMS_ITS | Encounter Summary ---
Author Organization [facility] Address [facility] [place] [address] Care Team Providers Care Animal Treatment Investigator Name Role Phone Vanessa Christian BODY STRAIGHTENER Primary Care Provider Encounter Details Date Type Department Care Team (Late st Contact Info) Description 03/12/2024 2:40 PM EDT Office [place] [phone] Zak Farmer MD [facility] [place] [address] Coronary artery disease, unspecified vessel or lesion type, unspecified whether angina present, unspecified whether united [place] or transplanted heart Social History Tobacco Use Types Packs/Day Years Used Date Smoking Tobacco: Former Cigarettes Smokeless Tobacco: Never Comments:Quit 15 + years ago Alcohol Use Standard Drinks/Week Comments Yes 0 (1 standard drink = 0.6 oz pur e alcohol) rare [facility] Utilities Answer Date Recorded In the past 12 months has e [employer], gas, oil, or water [employer] threatened to shut off services in your [...] 2:40 PM EDT To: MD Vanessa Coles, BODY STRAIGHTENER Re; Karlos Santa ( 1960) We had [...] contact my office. Best personal regards, Zak aFrmer MD [phone] documented in this encounter Plan of Treatment Upcoming Encounters Date Type Department Care Team (Late st Contact Info) Description 11/30/2024 3:00 PM EST Office Visit Cardiology at [address] [place] [address] Neftali Ernandez MD [facility] [place] [address] documented as of this encounter Procedures Procedure Name Priority Date/Time Associated Diagnosis Comments EKG 12-LEAD Routine 03/12/2024 2:35 PM EDT Coronary artery disease, unspecified vessel or lesion type, unspecified whether angina present, unspecified whether united keetoowah or transplanted heart documented in this encounter Results * EKG 12 Lead (03/12/2024 2:35 PM EDT) Ventricular rate 59 BPM MUSE SYSTEM Atrial Rate 59 BPM MUSE SYSTEM P-R Interval 190 ms MUSE SYSTEM QRS Duration 92 ms MUSE SYSTEM Q-T Interval 406 ms MUSE SYSTEM QTC Calculated (Bezet) 401 ms MUSE SYSTEM Calculated P [place] -12 degrees MUSE SYSTEM Calculated R [place] 24 degrees MUSE SYSTEM Calculated T [place] 74 degrees MUSE SYSTEM INTERPRETATION Sinus bradycardia T wave abnormality, consider anterior ischemia Abnormal ECG When compared with ECG of 17-FEB-2024 13:24, [place] interval has decreased T wave inversion now evident in Anterior leads Confirmed by Paul Guzman ([id number]) on 03/15/2024 8:36:23 AM MUSE SYSTEM 03/12/2024 2:35 PM EDT 03/15/2024 8:36 AM EDT Zak Farmer MD ECG ORDERABLES MUSE SYSTEM documented in this encounter Visit Diagnoses Diagnosis Coronary artery disease, unspecified vessel or lesion type, unspecified whether angina present, unspecified whether united keetoowah or transplanted heart documented in this encounter Care Teams Animal Treatment Investigator Relationship Specialty Start Date End Date Vanessa Christian APRN PCP - General Family Medicine 10/21/23 05/26/24 documented as of this encounter
--- OUTSIDE RECORDS SUMMARY | 2024-07-09 10:06 | XMS_ITS | Encounter Summary ---
Author Organization [facility] Address [facility] [place] [address] Care Team Providers Care Land Manager Name Role Phone Vanessa Christian Lane DOTSON Primary Care Provider [phone] Reason for Visit * Reason Comments Coronary Artery Disease Aortic Stenosis Encounter Details Date Type Department Care Team (Latest Contact Info) Description 05/27/2024 11:00 AM EDT Office Visit Cardiology at [address] [place] [phone] Neftali Ernandez MD [facility] [place] [address] ASCVD (arteriosclerotic cardiovascular disease); Nonrheumatic aortic valve stenosis Social History Tobacco Use Types Packs/Day Years Used Date Smoking Tobacco: Former Cigarettes Smokeless Tobacco: Never Comments:Quit 15 + years ago Alcohol Use Standard Drinks/Week Comments Yes 0 (1 standard drink = 0.6 oz pur e alcohol) rare [facility] Utilities Answer Date Recorded In the past 12 months has e [employer], gas, oil, or water [employer] threatened to shut off services in your [...] PM EST Office Visit Cardiology at [address] [address] Neftali Ernandez MD [facility] [place] [address] documented as of this encounter Visit Diagnoses Diagnosis ASCVD (arteriosclerotic cardiovascular disease) Unspecified cardiovascular disease Nonrheumatic aortic valve stenosis Aortic valve disorders documented in this encounter Care Teams Land Manager Relationship Specialty Start Date End Date Vanessa Christian APRN [address] [place] [address] PCP - General Family Medicine 05/27/24 documented as of this encounter
--- OUTSIDE RECORDS SUMMARY | 2024-07-09 10:06 | XMS_ITS | Clinical Summary ---
Author Organization [facility] Address [address] [place] [address] Care Team Providers Care Cad Application Support Specialist Name Role Phone Vanessa Christian NP Primary Care Provider [phone] Social History Tobacco Use Types Packs/Day Years [...] COVID-19 Vaccine (2022- season) 2024 Care Teams Cad Application Support Specialist Relationship Specialty Start Date End Date Vanessa Christian NP [address] [place] [phone] PCP - General Family Medicine - Primary Care 10/07/23
--- OUTSIDE RECORDS SUMMARY | 2024-07-09 10:06 | XMS_ITS | Encounter Summary ---
Author Organization [facility] Address [facility] [place] [address] Care Team Providers Care Biodiesel Process Control Technician Name Role Phone Vanessa Christian MAURI Primary Care Provider [phone] Encounter Details Date Type Department Care Team [...] PM EST Office Visit Cardiology at [address] [phone] Neftali Ernandez MD [facility] [place] [address] documented as of this encounter Visit Diagnoses Not on filedocumented in this encounter Care Teams Biodiesel Process Control Technician Relationship Specialty Start Date End Date Vanessa Christian APRN PCP - General Family Medicine 10/21/23 05/26/24 documented as of this encounter
--- OUTSIDE RECORDS SUMMARY | 2024-07-09 10:06 | XMS_ITS | Encounter Summary ---
Author Organization [facility] Address [facility] [place] [address] Care Team Providers Care Manager Lsw Name Role Phone Vanessa Christian MAURI Primary Care Provider [phone] Encounter Details Date Type Department Care Team (Latest Contact Info) Description 05/27/2024 Travel Social History Tobacco Use Types Packs/Day Years Used Date Smoking Tobacco: Former Cigarettes Smokeless Tobacco: Never Comments:Quit 15 + years ago Alcohol Use Standard Drinks/Week Comments Yes 0 (1 standard drink = 0.6 oz pur e alcohol) rare [facility] Utilities Answer Date Recorded In the past [...] PM EST Office Visit Cardiology at [address] [address] Neftali Ernandez MD [facility] [place] [address] documented as of this encounter Visit Diagnoses Not on filedocumented in this encounter Care Teams Manager Lsw Relationship Specialty Start Date End Date Vanessa Christian APRN [address] [place] [address] PCP - General Family Medicine 05/27/24 documented as of this encounter
--- OUTSIDE RECORDS SUMMARY | 2024-07-09 10:06 | XMS_ITS | Encounter Summary ---
Author Organization [facility] Address [facility] [place] [address] Care Team Providers Care Manufacturing Technician Name Role Phone Gino Vanessa Lane DOTSON Primary Care Provider [phone] Encounter Details Date Type Department Care Team (Late st Contact Info) Description 02/24/2024 Orders Only Cardiac Surgery [facility] [place] [phone] Trudi Lester APRN [facility] [place] [address] Social History Tobacco Use Types Packs/Day Years Used Date Smoking Tobacco: Former Cigarettes Smokeless Tobacco: Never Comments:Quit 15 + years ago Alcohol Use Standard Drinks/Week Comments Yes 0 (1 standard drink = 0.6 oz pur e alcohol) rare [facility] Utilities Answer Date Recorded In the past 12 months has e [employer], gas, oil, or water [employer] threatened to shut off services in your [...] PM EST Office Visit Cardiology at [address] [place] [address] [facility] [place] [address] documented as of this encounter Visit Diagnoses Not on filedocumented in this encounter Care Teams Manufacturing Technician Relationship Specialty Start Date End Date Vanessa Christian APRN PCP - General Family Medicine 10/21/23 05/26/24 documented as of this encounter
--- OUTSIDE RECORDS SUMMARY | 2024-07-09 10:06 | XMS_ITS | Encounter Summary ---
Author Organization [facility] Address [facility] [place] [address] Care Team Providers Care Day Treatment Clinician/Art Therapist Name Role Phone Vanessa Christian MAURI Primary Care Provider [phone] Encounter Details Date Type Department Care Team (Latest Contact Info) Description 05/20/2024 Travel Social History Tobacco Use Types Packs/Day Years Used Date Smoking Tobacco: Former Cigarettes Smokeless Tobacco: Never Comments:Quit 15 + years ago Alcohol Use Standard Drinks/Week Comments Yes 0 (1 standard drink = 0.6 oz pur e alcohol) rare [facility] Utilities Answer Date Recorded In the past [...] PM EST Office Visit Cardiology at [address] [phone] Neftali Ernandez MD [facility] [place] [address] documented as of this encounter Visit Diagnoses Not on filedocumented in this encounter Care Teams Day Treatment Clinician/Art Therapist Relationship Specialty Start Date End Date Vanessa Christian APRN PCP - General Family Medicine 10/21/23 05/26/24 documented as of this encounter
--- OUTSIDE RECORDS SUMMARY | 2024-07-09 10:06 | XMS_ITS | Clinical Summary ---
Author Organization [facility] Address [facility] [place] [address] Care Team Providers Care Maintenance Engineer Name Role Phone Vanessa Christian Lane DOTSON Primary Care Provider [phone] Allergies No known active allergies Medications Medication [...] 11:00 AM EDT Office Visit Cardiology at [address] [place] [address] Neftali Ernandez MD ASCVD (arteriosclerotic [...] PM EST Office Visit Cardiology at [address] [place] [address] Neftali Ernandez MD [facility] [place] [address] Health Maintenance Due Date Last [...] f 1 - Influenza standard series) 06/07/2024 Pneumoccocal Vaccine: 65+ (1 of 1 - PCV) 2024 Medical Devices Implanted Type Area Electronic Pagination System Operator Device Identifier Shelf Expiration Date Model / Serial / Lot Cable,Cut,Edg ,Blnt,Ss,3tpr ([id number]) - [id number] Implanted:Qty : 1 on 02/17/2024 by Zak Farmer MD at [facility] IMPLANTS Midline: Chest [employer] - [id number] 09/02/2028 [id number] / / [id number] Valve Coronary Aortic 23mm Tissue Trnscath Biopros Inspiris ([id number]) (Autoreq) - [id number] Implanted:Qty : 1 on 02/17/2024 by Zak Farmer MD at [facility] IMPLANTS Heart [employer] - TSAI LI 09/15/2027 [id number] 23MM / [id number] / Procedures Procedure Name Priority Date/Time Associated [...] (Bezet) 367 ms MUSE SYSTEM Calculated P [place] 12 degrees MUSE SYSTEM Calculated R [place] 27 degrees MUSE SYSTEM Calculated T [place] 62 degrees MUSE SYSTEM INTERPRETATION Sinus bradycardia with 1st degree A-V block Otherwise normal ECG When compared with ECG of 12-MAR-2024 14:35, T wave inversion no longer evident in Anterior leads Confirmed by MD Ernandez Daniel ([id number]) on 06/01/2024 8:36:17 AM MUSE SYSTEM 05/27/2024 [...] Status decision made by: Patient Care Teams Maintenance Engineer Relationship Specialty Start Date End Date Vanessa Christian, MAURI [address] [place] [address] PCP - General Family Medicine 05/27/24
--- OUTSIDE RECORDS SUMMARY | 2024-07-09 10:06 | XMS_ITS | Encounter Summary ---
Author Organization [facility] Address [facility] [place] [address] Care Team Providers Care Credit Card Analyst Name Role Phone Vanessa Christian MARUI Primary Care Provider [phone] Encounter Details Date Type Department Care Team (Latest Contact Info) Description 03/12/2024 1:30 PM EDT - 03/12/2024 11:59 PM EDT Hospital Encounter XRay at [address] [place] [address] Coronary artery disease, unspecified vessel or lesion type, unspecified whether angina present, unspecified whether pechanga or transplanted heart Discharge Disposition: Home Social History Tobacco Use Types Packs/Day Years Used Date Smoking Tobacco: Former Cigarettes Smokeless Tobacco: Never Comments:Quit 15 + years ago Alcohol Use Standard Drinks/Week Comments Yes 0 (1 standard drink = 0.6 oz pur e alcohol) rare [facility] Utilities Answer Date Recorded In the past 12 months has e [employer], gas, oil, or water [employer] threatened to shut off services in your [...] PM EST Office Visit Cardiology at [address] [place] [address] Neftali Ernandez MD [facility] [place] [address] documented as of this encounter Procedures Procedure Name Priority Date/Time Associated Diagnosis Comments XR CHEST PA AND LATERAL Routine 03/12/2024 1:42 PM EDT Coronary artery disease, unspecified vessel or lesion type, unspecified whether angina present, unspecified whether pechanga or transplanted heart documented in this encounter Results * XR Chest PA & Lateral (Generic) (03/12/2024 1:42 PM EDT) WORKSTATION ID [id number] RAD Anatomical Region Laterality Modality Chest N/A [...] have questions please contact the health care director rn that requested your imaging first. ? Narrative 03/13/2024 8:28 AM EDT EXAMINATION: XR CHEST PA AND LATERAL (GENERIC) CLINICAL HISTORY: s/p cabg eval effusions I25.10, Atherosclerotic heart disease of pechanga coronary artery without angina pectoris TECHNIQUE: PA [...] eval effusions I25.10, Atherosclerotic heart disease of pechanga coronary artery withoutangina pectoris TECHNIQUE: PA and [...] who have questions please contactthe health care director rn that requested your imaging first. Zak Farmer MD IMG DX ORDERABLES documented in this encounter Visit Diagnoses Diagnosis Coronary artery disease, unspecified vessel or lesion type, unspecified whether angina present, unspecified whether pechanga or transplanted heart documented in this encounter Care Teams Credit Card Analyst Relationship Specialty Start Date End Date Vanessa Christian, MAURI PCP - General Family Medicine 10/21/23 05/26/24 documented as of this encounter
--- OUTSIDE RECORDS SUMMARY | 2024-07-09 10:07 | XMS_ITS | Encounter Summary ---
Author Organization [facility] Address [facility] [place] [address] Care Team Providers Care Yard Brakeman Name Role Phone Vanessa Christian APRN Primary Care Provider [phone] Encounter Details Date Type Department Care Team [...] PM EST Office Visit Cardiology at [address] [place] [address] Neftali Ernanedz MD [facility] [place] [id number] documented as of this encounter Visit Diagnoses Not on filedocumented in this encounter Care Teams Yard Brakeman Relationship Specialty Start Date End Date Vanessa Christian APRN PCP - General Family Medicine 10/21/23 05/26/24 documented as of this encounter
--- OUTSIDE RECORDS SUMMARY | 2024-07-09 10:07 | XMS_ITS | Encounter Summary ---
Author Organization [facility] Address [facility] [place] [address] Care Team Providers Care Lead Software Developer Name Role Phone Vanessa Christian MAURI Primary Care Provider [phone] Encounter Details Date Type Department Care Team (Late st Contact Info) Description 02/14/2024 [place] [phone] Zak Farmer MD [facility] [place] [address] Coronary artery disease, unspecified vessel or lesion type, unspecified whether angina present, unspecified whether ambler or transplanted heart (Primary Dx) Social History [...] PM EST Office Visit Cardiology at [address] [place] [phone] Neftali Ernandez MD [facility] CARDIOLOGY [place], [place] [phone] documented as of this encounter Results * EKG 12 Lead (03/12/2024 2:35 PM EDT) Ventricular rate 59 BPM MUSE SYSTEM Atrial Rate 59 BPM MUSE SYSTEM P-R Interval 190 ms MUSE SYSTEM QRS Duration 92 ms MUSE SYSTEM Q-T Interval 406 ms MUSE SYSTEM QTC Calculated (Bezet) 401 ms MUSE SYSTEM Calculated P [place] -12 degrees MUSE SYSTEM Calculated R [place] 24 degrees MUSE SYSTEM Calculated T [place] 74 degrees MUSE SYSTEM INTERPRETATION Sinus bradycardia T wave abnormality, consider anterior ischemia Abnormal ECG When compared with ECG of 17-FEB-2024 13:24, [place] interval has decreased T wave inversion now evident in Anterior leads Confirmed by Paul Guzman ([id number]) on 03/15/2024 8:36:23 AM MUSE SYSTEM 03/12/2024 2:35 PM EDT 03/15/2024 8:36 AM EDT Zak Farmer MD ECG ORDERABLES MUSE SYSTEM * XR Chest PA & Lateral (Generic) (03/12/2024 1:42 PM EDT) WORKSTATION ID [id number] RAD Anatomical Region Laterality Modality Chest N/A [...] questions please contact the health lawn care professional that requested your imaging first. ? Electronically signed by: Augie Sanchez MD, [facility] ([phone]), at 03/13/2024 8:28 AM Narrative 03/13/2024 8:28 AM EDT EXAMINATION: XR CHEST PA AND LATERAL (GENERIC) CLINICAL HISTORY: s/p cabg eval effusions I25.10, Atherosclerotic heart disease of ambler coronary artery without angina pectoris TECHNIQUE: PA [...] eval effusions I25.10, Atherosclerotic heart disease of ambler coronary artery withoutangina pectoris TECHNIQUE: PA and [...] have questions please contactthe health lawn care professional that requested your imaging first. Electronically signed by: Augie Sanchez MD, [facility]([phone]), at 03/13/2024 8:28 AM Zak Farmer MD IMG DX ORDERABLES documented in this encounter Visit Diagnoses Diagnosis Coronary artery disease, unspecified vessel or lesion type, unspecified whether angina present, unspecified whether ambler or transplanted heart- Primary Coronary artery disease, unspecified vessel or lesion type, unspecified whether angina present, unspecified whether ambler or transplanted heart documented in this encounter Care Teams Lead Software Developer Relationship Specialty Start Date End Date Vanessa Christian APRN PCP - General Family Medicine 10/21/23 05/26/24 documented as of this encounter
--- OUTSIDE RECORDS SUMMARY | 2024-07-09 10:07 | XMS_ITS | Encounter Summary ---
Author Organization [facility] [place] [address] Care Team Providers Care Furnace Combustion Analyst Name Role Phone Vanessa Christian MAURI Primary Care Provider [phone] Reason for Visit * Auth/Cert (Routine) Specialty [...] W RHC (WRVU 5.9) Rima Dickinson MD [facility] [place] [address] [facility] Referral ID Status Reason Start Date Expiration Date Visits Re quested Visits Authorized [id number] 1 1 Encounter Details Date Type Department Care Team (Late st Contact Info) Description 02/03/2024 10:00 AM EDT - 02/03/2024 11:00 AM EDT [place] [address] Saira Lua MD [facility] [place] [address] CARDIAC CATHETERIZATION Social History Tobacco Use Types [...] lbs Follow-up Visits Follow up with your toll mechanic in 2-4 weeks Access Site 'Black and Blue' and tenderness is expected during the first week Call if you noted a mass (lump) greater than the size of a ellis Call Office with any Questions and if you have any of the following Clarence Lane M.D Interventional Loom Fixer Supervisor Winding Inspector And Tester #: [phone] * Attachments The following attachments cannot be sent through Care Everywhere. * CAD (Coronary Artery Disease): General Info (Mexican) * Coronary Angiogram: Post-op (Mexican) documented in this encounter Medications at Time [...] - 02/03/2024 11:48 AM EDT [facility] Interventional Cardiology Adult Pre-Procedure H&P Update: Cardiac Catheterization Karlos Anthony [id number] 1960 Chief Complaint: Aortic stenosis HPI: Mr. [...] is inthe chart Clarence Lane MD Interventional Loom Fixer Supervisor 02/03/24 11:48 AM documented in this encounter Miscellaneous Notes * Brief Op Note - Clarence Lane MD - 02/03/2024 12:51 PM EDT Preliminary Cardiac Catheterization Procedure Note: Patient Name: Karlos Anthony : [id number] MR#: [id number] Case Date: 02/03/2024 Winding Inspector And Tester: Surgeon(s) and Role: * Saira Lua [...] PM EST Office Visit Cardiology at [address] [address] Neftali Ernandez MD [facility] [place] [address] Scheduled Orders Name Type Priority Associated Diagnoses [...] Modality Other Narrative 02/12/2024 3:47 PM EDT ?[facility] ? Cardiac Catheterization/Intervention Report ? Patient Name: Patenaude, Karlos ? Procedure Date: 02/03/2024 ? A #: [id number] ? Primary Physician: Saira Lua ? Case #: [id number] ? File Name: [id number] ? Catheterization Order Number: [id number] ? [facility] ? Final Report [place], [place] ? Patient Name: ? Karlos Patenaude ? ID#: ?[id number] ? : ?1960 ? Procedure Date: ? [...] Procedure Note Saira Lua MD - 02/12/2024 [facility] Cardiac Catheterization/Intervention Report Patient Name: Karlos Anthony Procedure Date: 02/03/2024 A #: [id number] Primary Physician: Saira Lua Case #: [id number] File Name: [id number] Catheterization Order Number: [id number] [facility] FinalReport [place], [place] Patient Name: Karlos Anthony ID#:[id number] :1960 Procedure Date: February 03, 2024 Case [...] was designated as ASA Class III. The [facility] clinical frailty scale is 3: Managing [...] (Bezet) 372 ms MUSE SYSTEM Calculated P [place] 59 degrees MUSE SYSTEM Calculated R [place] 34 degrees MUSE SYSTEM Calculated T [place] 63 degrees MUSE SYSTEM INTERPRETATION Sinus bradycardia [...] MD) documented in this encounter Care Teams Furnace Combustion Analyst Relationship Specialty Start Date End Date Vanessa Christian APRN PCP - General Family Medicine 10/21/23 05/26/24 documented as of this encounter
--- OUTSIDE RECORDS SUMMARY | 2024-07-09 10:07 | XMS_ITS | Encounter Summary ---
Author Organization [facility] Ivana [place] [address] Care Team Providers Care Wire Straightener Name Role Phone Vanessa Christian MAURI Primary [...] MD [facility] CARDIOTHORACIC [place] [address] [facility] Referral ID Status Reason Start Date Expiration Date Visits Re quested Visits Authorized [id number] 1 1 Encounter Details Date Type Department Care Team (Late st Contact Info) Description 02/17/2024 7:35 AM EDT Anesthesia Event Main Operating Room [facility] [place] [phone] Roman York MD [facility] [place] [address] Anesthesia Record Procedure Summary Procedure Name Responsible [...] by Sadiq Woo RN PIV 02/17/24; 0715; [id number]-ufartf catheter system; 18 gauge; cephalic vein (lateral [...] th e electric, gas, oil, or water [employer] threatened to shut off services in your [...] Procedure Summary Date: 02/17/24 Room / Location: [facility] OR [address] [place] [address] MAIN OR Anesthesia Start: 734 Anesthesia Stop: [...] shown include unfiled device data. Patient Location: [facility] Level of Consciousness: Sedated (Pharmacologic/Intentional) Pain [...] 08/14/2023 ??? Nevus of face 09/26/2023 Right adventism No past surgical history on file. Social [...] PM EST Office Visit Cardiology at [address] [place] [address] Neftali Ernandez MD [facility] [place] [address] documented as of this encounter [...] mg documented in this encounter Care Teams Wire Straightener Relationship Specialty Start Date End Date Vanessa Christian APRN PCP - General Family Medicine 10/21/23 05/26/24 documented as of this encounter
--- OUTSIDE RECORDS SUMMARY | 2024-07-09 10:07 | XMS_ITS | Encounter Summary ---
[facility] Organization [facility] [place] [address] Care Team Providers Care Service Delivery Director Name Role Phone Aparna Jordan MAURI Primary Care Provider [phone] Reason for Visit * Auth/Cert (Routine) Specialty [...] ARTERIAL GRAFT (WRVU 7.93) Hayder Graham MD [facility] [place] [address] [facility] Referral ID Status Reason Start Date Expiration Date Visits Re quested Visits Authorized [id number] 1 1 Encounter Details Date Type Department Care Team (Late st Contact Info) Description 02/17/2024 7:30 AM EDT - 02/17/2024 1:26 PM EDT Surgery [place] [id number] Hayder Graham MD [facility] [place] [address] ENDOSCOPIC HARVEST VEIN(S) FOR CABG (WRVU 0.31) [...] Patient Age: 63 y.o. Birthdate: 1960 Language: Anguillan Race: White Ethnicity: Not nor Admit Date: 02/17/2024 Discharge Date: 02/24/24 Attending Physician: Hayder Graham MD Follow-up Recommendations for Providers: Please continue routine management of cardiovascular risk factors including blood pressure, lipids,glucose, etc. Please note any changes to medications. Patient to follow up with PCP, Aparna Jordan APRN, in 1-2 weeks. Patient to follow up with Pile Operator, Neftali Ernandez MD , in 2 weeks. Patient to follow up with Cardiac Surgeon, Dr. Hayder Graham, with a chest x-ray, EKG, and Echo. 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 MAIN OR PRO CABG, ARTERY-VEIN, TWO N/A 02/17/2024 @CABG, TWO VENOUS GRAFTS & ARTERIAL GRAFT (WRVU 7.93) performed by Hayder Graham MD at [facility] MAIN OR PRO ENDOSCOPY W/VIDEO-ASST VEIN HARVEST, CABG Left 02/17/2024 ENDOSCOPIC HARVEST VEIN(S) FOR CABG (WRVU 0.31) performed by Hayder Graham MD at [facility] MAIN OR PRO REPLACEMENT PROSTHETIC AORTIC VALVE OPEN W CARDIOPULMONARY BYPASS HOMOGRF/STENT N/A 02/17/2024 @REPLACE AORTIC VALVE, OPEN, W\CPB, W\PROSTHETIC VALVE (WRVU 41.32) performed by Hayder Graham MD at [facility] MAIN OR Prior To Admission Medications Medications [...] insufficiency. He has glaucoma. He used to [employer] until about 15 years ago. He has undergone prior herniorrhaphy. 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 Major Procedures/Operations: 02/17/24 s/p avr/cabgx3 CABG x 3 JOSE->LAD SVG->dRCA SVG->OM1 EVH from LLE AVR with a 23 mm Inspiris Bioprosthesis Hospital Course: Karlos Garcia was admitted to [facility] on 02/17/2024 via the Same Day Program. [...] Hayder Graham and/or the Cardiac Surgery Physician Fire Adjuster Team may be reached at . Antibiotic [...] Please refer to the card with the [place] [employer] Guidelines for more information. You [...] Dr. Hayder Graham. You may use a [place] Track or treadmill but avoid any pulling [...] should resume a low fat, low cholesterol, [place] Heart [employer] Diet. Driving: No driving until [...] while being managed by your PCP and/or Pile Operator. For future medication refills, please refer to your PCP and/or Pile Operator after your discharge from our service. Thank you REMOVE CHEST TUBE SUTURES ON OR AFTER 03/02/24 Home oxygen therapy: N/A Follow up appointments: You should follow up with your PCP, Aparna Jordan APRN, in 1-2 weeks. Our office will schedule an appointment with your Pile Operator, Neftali Ernandez MD , in 2 weeks. You have an appointment with your Cardiac Surgeon, Dr. Hayder Graham, 4 weeks with a chest x-ray, EKG, and Echo before your appointment. Cardiac Rehabilitation: Karlos Garcia was seen regarding participation in the outpatient Phase 2Cardiac Rehabilitation at [facility]. The patient agrees to a referral to this program. The referral will be sent at discharge and the patient should be contacted by the Program within 1- 2 weeks from discharge. Future Appointments and Orders Future Orders Complete By Expires Echocardiogram Transthoracic [02995 CPT(R)] 03/26/2024 09/25/2024 Process Instructions: Scheduling Instructions: Questions: Where will study be performed?: [facility] Does the patient have Congenital Heart Disease?: Does patient require sedation?: Sedation rationale: XR Chest PA & Lateral (Generic) [52187 82139 Custom] 03/26/2024 09/25/2024 Process Instructions: Scheduling Instructions: Questions: Portable exam?: Reason for exam and clinical history: s/p avr/cabg Clinical information / jerome questions for radiologist: Stat read required?: Date of injury if applicable: Requested Time: Where will study be performed?: [facility] Radiology Referral to Cardiac Rehab [INE045 Custom] As directed Process Instructions: If no progress note charted, please enter Clinical details in comments. Scheduling Instructions: Questions: My question or request is: s/p AVR/CABG. Cardiac rehab at [facility]. Referral to Home Health [REF34 Custom] As directed Process Instructions: If no progress note charted, please enter Clinical details in comments. Scheduling Instructions: Comments: Please evaluate Karlos Garcia for admission to Home Health. [address] Phone Number: Date of : 1960 Inpatient DOCUMENTATION FOR VNA SERVICES (INCLUDING THOSE PATIENTS WITH MEDICARE COVERAGE REQUIRING HOME VNA SERVICES AND/OR HOSPICE SERVICES) PATIENT'S LOCATION: Karlos Garcia [address] [employer] [phone] Yard Brakeman's Name: self/family In discussion with the attending physician, it is certified that this patient is under their care and that they, or a Nurse Practitioner, or Physician Fire Adjuster who is working directly with them, hada [...] for services as follows: HOME HEALTH AGENCY: [facility] [address] [place] [phone] RN orders: Cardiopulmonary assessment, incisional assessment, assess [...] issues please call the Cardiology Office at [phone] FOR MEDICARE ONLY: (please delete this section [...] care: As above. Signed: NEFTALI MENON PA-C [facility] Section of Cardiac Surgery [facility] [place] [address] FAX [phone] Date: 02/24/2024 CC: Aparna Jordan, MAURI Jordan, Aparna Sherman APRN [address] [place] [address] documented in this encounter Discharge Instructions * [...] Hayder Graham and/or the Cardiac Surgery Physician Fire Adjuster Team may be reached at . Antibiotic [...] Please refer to the card with the [place] Heart Association Guidelines for more information. You [...] Dr. Hayder Graham. You may use a [place] Track or treadmill but avoid any pulling [...] should resume a low fat, low cholesterol, [place] Heart Association Diet. Driving: No driving until [...] while being managed by your PCP and/or Pile Operator. For future medication refills, please refer to your PCP and/or Pile Operator after your discharge from our service. Thank you REMOVE CHEST TUBE SUTURES ON OR AFTER 03/02/24 Home oxygen therapy: N/A Follow up appointments: You should follow up with your PCP, Aparna Jordan APRN, in 1-2 weeks. Our office will schedule an appointment with your Pile Operator, Neftali Ernandez MD , in 2 weeks. You have an appointment with your Cardiac Surgeon, Dr. Hayder Graham, 4 weeks with a chest x-ray, EKG, and Echo before your appointment. Cardiac Rehabilitation: Karlos Garcia was seen regarding participation in the outpatient Phase 2Cardiac Rehabilitation at [facility]. The patient agrees to a [...] 0600 and on the weekends please page [phone]. * Eric Barahona PA - 02/23/2024 9:27 [...] 0600 and on the weekends please page [phone]. * Tiffanie Owens, DIE PRESSER - 02/22/2024 2:48 PM EDT Physical Therapy [...] d/c for 10 days. 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 He drives. He works Precautions/Special Considerations: STERNAL [...] LRAD and supervision Time IN / OUT: 2102-5469 Total Time: 30 minutes; TEFx2 Tiffanie Owens Pager: [phone] Physical Therapy Inpatient Rehabilitation Department * Romeo [...] 0600 and on the weekends please page [phone]. * Kelley Hinson DIE PRESSER - 02/21/2024 10:15 AM EDT Physical Therapy [...] d/c for 10 days. 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 He drives. He works Precautions/Special Considerations: STERNAL [...] LRAD and supervision Time IN / OUT: 6235-9780 Total Time: 25 minutes; TEF 2 Kelley Hinson PTA Pager: [phone] Physical Therapy Inpatient Rehabilitation Department * Louisa [...] 0600 and on the weekends please page [phone]. * Kelley Hinson PTA - 02/20/2024 3:32 [...] at that time Kelley Hinson PTA Pager: [phone] Physical Therapy Inpatient Rehab Department * Louisa [...] 0600 and on the weekends please page [phone]. * Maris Benavides, PT - 02/19/2024 11:22 [...] d/c for 10 days. 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 He drives. He works. Precautions/Special Considerations: STERNAL [...] outlined inthis evaluation. MARIS BENAVIDES, PT Pager: [phone] Physical Therapy Inpatient Rehabilitation Department Time IN / OUT: 1683-8766 Total Time: 38 (eval) minutes; * Antonio [...] 0600 and on the weekends please page [phone]. * Minnie Begum PA - 02/18/2024 8:25 [...] 0600 and on the weekends please page [phone]. * Kim Ha RCP - 02/17/2024 2:25 [...] plan since last visit. Hayder Graham MD [phone] Source Note - Hayder Graham MD - [...] given written informed consent. Hayder Graham MD [phone] * Hayder Graham MD - 02/17/2024 7:00 [...] given written informed consent. Hayder Graham MD [phone] documented in this encounter Miscellaneous Notes * [...] for follow-up Home Health & Hospice, [address] [place] [address] Cardiac Rehab, [address] [place] [address] Transportation: family or friend will provide Functional status prior to admission: Independent Home Environment: Others in the home: alone. Current Living Arrangements: home/apartment/condo. Accessibility Concerns:a few steps to enter 1 floor home. Current Functional Ability: Assistive Person and Equipment DME used at home: none DME Needed at Discharge: N/A Patient is insured through: Primary Insurance: [place] Payor: [facility] / Plan: [facility] PPO / Product Type: *No [...] pain managed with scheduled Tylenol. Worked with [employer]. Ambulated in the roque multiple times during [...] anticipated Patient is insured through: Primary Insurance: [facility] Payor: [facility] / Plan: [facility] PPO / Product Type: *No Product type* / Secondary Insurance: N/A Last Physical Therapy Recommendation: home with home health (Str coming to stay for a week or two upon d/c) with to be determined (owns rolling walker, shower seat) Plan for discharge is: Home w/ Services Outpatient Agency/Support Group Needs: Homecare agency Home Health Services: Physical Therapy, Registered Nurse Agency Referrals: [facility] [address] [place] [phone] Transportation: family or friend will provide Barriers to discharge: Discharge planning Plan going forward: Service Care Management will continue to follow and assist with discharge planning and coordination of care as indicated. Anticipated Date of Discharge: 02/22/2024 Rhett Bell RN RN/CM - Cellphone: [phone] Pager: [phone] Covering Service RN/CM * Plan of Care [...] Yang RN - 02/19/2024 10:44 AM EDT [facility] Karlos Garcia was seen today regarding participation in the outpatient Phase 2 Cardiac Rehabilitation at [facility]. The patient agrees to a [...] Hypertension 08/14/2023 Nevus of face 09/26/2023 Right uatsdin Hospitalizations Within the Past 30 Days: no previous admission in last 30 days Current Decision-Making Capacity: Self If AD's have not been completed the following surrogate would be surrogate decision maker per [place] surrogate decision making law. (Only good for 180 days) Any patient receiving care in [place] must abide by [place] law. The hierarchy [...] The agent with financial power of attorney law clerk or a conservator appointed in accordance with [...] place to sleep or slept in [facility] (including now)?: No In the past 12 months has the frents, gas, oil, or water [employer] threatened to shut off services in your [...] as: [address] [facility] [address] Physical address: [address] [facility], [address] Social & Family Supports: All names listed below confirmed with patient as current and correct Extended Emergency Contact Information Primary Emergency Contact: Cielo Garcia Relation: Child Secondary Emergency Contact: Sara Mcghee Relation: None Current Care Provided by: self Provides Primary Care For: no one Caregiver if needed: child(jaun), adult Quality of Family relationships: helpful, involved, [...] Information: none noted Health/Prescription Coverage: Primary Insurance: [facility] Payor: [facility] / Plan: [facility] PPO / Product Type: *No Product type* / Secondary Insurance: N/A ; Prescription Coverage: Yes Preferred Pharmacy: [id number] [address] [place] Status: Patient is a : No Primary Care Provider confirmed: Aparna Jordan, MAURI [phone] Patient/Caregiver Goals of Treatment: dc to home Potential Needs for Transition of Care: home health care Agency Referrals: I have met with the patient to: discuss discharge planning needs. provide the [facility], Office of Care Management letter from the Flash Drier Operator pertaining to rehab referrals. provide a letter describing our affiliations within the [facility] and educate about their right to choose where referrals are sent. provide a list of Home Health Agencies / Durable Medical Equipment vendors which serve their preferred geographic area. provided patient with [facility] Star Quality Rating handout. They have requested referrals to: [facility] [address] [place] [address] Note routed to a Sales And Customer Relations Rep who will communicate referrals to facilities and [...] Reina Greene RN CM, BSN, CMGT-BC Ext [phone] * Plan of Care - Binta Trinidad [...] Operative Note Patient Name: Karlos Garcia : [id number] MR#: [id number] Case Date: 02/17/2024 Surgeon: Surgeon(s) and Role: * Hayder Graham MD - Primary * Neftali Menon PA - Physician Fire Adjuster Preoperative diagnosis: CAD Postoperative diagnosis: CAD, intraoperative [...] mL Drains: Mediastinal and Left pleural Disposition: [facility] Condition: doing well without problems Attestation: Case Date: 02/17/2024 I performed this procedure without the involvement of a resident. HAYDER GRAHAM MD 02/17/2024 * Op Note - Hayder Graham MD - 02/17/2024 8:20 AM EDT [facility] Operative Note Patient Name: Karlos Garcia : [id number] MR#: [id number] Case Date: 02/17/2024 Surgeon: Surgeons and Role: * Hayder Graham MD - Primary * Neftali Menon PA - Physician Fire Adjuster Preoperative diagnosis: CAD Postoperative diagnosis: CAD, intraoperative [...] mL Drains: Mediastinal and Left pleural Disposition: [facility] Procedure Description: The patient was [...] PM EST Office Visit Cardiology at [address] [phone] Neftali Ernandez MD [facility] [place] [address] Scheduled Orders Name Type Priority Associated Diagnoses [...] Aortic Valve Open W Cardiopulmonary Bypass Homogrf/Stent (97683) Yes 02/17/2024 7:28 AM EDT CAD Cabg, Artery-Vein, Two (62670) Yes 02/17/2024 7:28 AM EDT CAD Cabg, Arterial, Single (12887) Yes 02/17/2024 7:28 AM EDT CAD Endoscopy W/Video-Asst Vein [place], Cabg (62870) Yes 02/17/2024 7:28 AM EDT CAD POCT [...] Lab Hayder Graham MD CHEMISTRY ORDERABLE S [facility] [place] [address] * (ABNORMAL) Basic Metabolic Panel (non-fasting) (02/23/2024 [...] MD CHEMISTRY ORDERABLES [facility] [place] [address] * Potassium (02/22/2024 4:30 AM EDT) Potassium [...] Lab Hayder Graham MD CHEMISTRY ORDERABLE S [facility] [place] [address] * (ABNORMAL) Basic Metabolic Panel (non-fasting) (02/21/2024 [...] 31 [facility] Comment:Add-on request. Samwilly le too old [...] MD CHEMISTRY ORDERABLES [facility] [place] [address] * Lactate, whole blood, send to lab ([facility]) (02/21/2024 9:45 AM EDT) [facility] Lactate WB 2.0 0.5 - 2.2 mmol/L [facility] Blood 02/21/2024 9:45 AM EDT 02/21/2024 9:52 AM EDT Narrative Resulting Agency Comment Spec In Lab Hayder Graham MD CHEMISTRY ORDERABLE S Performing Organization Address [facility] [[email or web address]] Co de Phone Number [facility] [place] [address] * (ABNORMAL) Hepatic Function Panel (02/21/2024 9:45 [...] Lab Hayder Graham MD CHEMISTRY ORDERABLE S [facility] [place] [address] * Lipase (02/21/2024 9:45 AM EDT) Lipase 56 0 - 60 unit/L [facility] Blood 02/21/2024 9:45 AM EDT 02/21/2024 9:52 AM EDT Narrative Resulting Agency Comment Spec In Lab Hayder Graham MD CHEMISTRY ORDERABLE S [facility] [place] [address] * Amylase (02/21/2024 9:45 AM EDT) Amylase 69 28 - 100 unit/L [facility] Blood 02/21/2024 9:45 AM EDT 02/21/2024 9:52 AM EDT Narrative Resulting Agency Comment Spec In Lab Hayder Graham MD CHEMISTRY ORDERABLE S Performing Organization Address City/[facility]/ZIP Co de Phone Number [facility] [place] [address] * Potassium (02/21/2024 3:08 AM EDT) Potassium [...] Lab Hayder Graham MD CHEMISTRY ORDERABLE S [facility] [place] [address] * XR Chest PA & Lateral (Generic) (02/20/2024 10:19 AM EDT) WORKSTATION ID [id number] [facility] Anatomical Region Laterality Modality Chest N/A Digital Radiogra phy Impressions 02/20/2024 1:11 PM EDT Small pleural effusions. No pneumothorax Thank you for letting us participate in the care of this patient. ??If you are a health care provider and have any questions regarding this report, please contact the number below. ??For patients who have questions please contact the health elderly caregiver that requested your imaging first. ? Electronically signed by: Rogerio Cruz MD, [facility] ??([phone]), at 02/20/2024 1:11 PM Narrative 02/20/2024 1:11 PM EDT EXAMINATION: XR CHEST PA AND LATERAL (GENERIC) CLINICAL HISTORY: s/p AVR/CABGx3 TECHNIQUE: PA and lateral views of the chest COMPARISON: 02/17/2024 FINDINGS: Support devices: Interval removal of [place] catheter, endotracheal tube and mediastinal chest tubes The cardiac silhouette is stable status post median sternotomy, CABG and aortic valve replacement. There are small pleural effusions. No pneumothorax. Procedure Note Rogerio Cruz MD - 02/20/2024 EXAMINATION: XR CHEST PA AND LATERAL (GENERIC) CLINICAL HISTORY: s/p AVR/CABGx3 TECHNIQUE: PA and lateral views of the chest COMPARISON: 02/17/2024 FINDINGS: Support devices: Interval removal of [place] catheter, endotracheal tubeand mediastinal chest tubes [...] patients who have questions please contactthe health elderly caregiver that requested your imaging first. Electronically signed by: Rogerio Cruz MD, [facility]([phone]), at 02/20/2024 1:11 PM Hayder Graham MD IMG DX ORDERABLES * Scan, Peripheral Blood (02/20/2024 4:23 AM EDT) Pathologist [facility] Plat estimate Decreased [facility] RBC Morphology Normal [facility] Blood 02/20/2024 4:23 AM EDT 02/20/2024 4:42 AM EDT Narrative Resulting Agency Comment Spec In Lab Minnie FRENCH HEMATOLOGY CECILIO ALEMAN [facility] [place] [id number] * (ABNORMAL) Differential, Automated (02/20/2024 4:23 AM EDT) [facility] Neutrophil % 81.7 % [facility] Neutrophil Absolute 10.37(H) 1.70 - 6.10 x10(3)/mc L [facility] Lymph % 7.4 % [facility] Lymphocytes Abs 0.9 0.9 - 3.2 x10(3)/mc L [facility] Monocyte % 9.7 % [facility] Monocyte Abs 1.2(H) 0.3 - 0.9 x10(3)/mc L [facility] Eos % 0.1 % [facility] Eosinophils Abs 0.0 0.0 - 0.4 x10(3)/mc L [facility] Basophil % 0.2 % [place] [...] HEMATOLOGY CECILIO ALEMAN [facility] [place] [address] * (ABNORMAL) Hemogram (02/20/2024 4:23 AM EDT) White Blood Cell 12.7(H) 4.0 - 9.5 x10(3)/[facility] Red Blood Cell 4.26(L) 4.58 - 5.54 x10(6)/ L [facility] Hemoglobin 12.3(L) [...] [facility] NRBC% auto 0.0 % [facility] NRBC Absolute 0.000 0.000 - 0.000 x10(3)/mc L [facility] Blood 02/20/2024 4:23 AM EDT 02/20/2024 4:42 AM EDT Narrative Resulting Agency Comment Spec In Lab Minnie FRENCH HEMATOLOGY CECILIO ALEMAN [facility] [place] [address] * (ABNORMAL) Basic Metabolic Panel (non-fasting) (02/20/2024 4:23 AM EDT) Glucose 113 65 - 199 mg/dL [facility] Comment:Diabetes: >=200 mg/d L plus symptoms Blood Urea Nitrogen 20 10 - 20 mg/dL [facility] Comment:result rechecked-[place] Creatinine 0.71(L) 0.80 - 1.50 mg/dL [facility] [...] MD CHEMISTRY ORDERABLE S Performing Organization Address [facility] [[email or web address]] Co de Phone Number [facility] [place] [address] * Potassium (02/19/2024 3:57 AM EDT) Potassium [...] MD CHEMISTRY ORDERABLE S Performing Organization Address [facility] [[email or web address]] Co de Phone Number [facility] [place] [address] * POCT Glucose (02/18/2024 8:24 AM EDT) Glucose, POC 157 65 - 199 mg/dL [facility] Comment: Supplemental ranges: <140 mg/dL before meals <180 mg/dL all other times of the day Blood 02/18/2024 8:24 AM EDT 02/18/2024 8:24 AM EDT Hayder Graham MD POINT OF CARE TEST ORDERABLES [facility] [place] [address] * Scan, Peripheral Blood (02/18/2024 1:40 AM EDT) Pathologist [facility] Plat estimate Decreased [facility] RBC Morphology Normal [facility] Blood 02/18/2024 1:40 AM EDT 02/18/2024 1:56 AM EDT Narrative Resulting Agency Comment Spec In Lab Neftali FRENCH HEMATOLOGY ORDER OLE Performing Organization Address City/[facility]/ZIP Co de Phone Number [facility] [place] [address] * (ABNORMAL) Differential, Automated (02/18/2024 1:40 AM EDT) [facility] Neutrophil % 87.1 % [facility] Neutrophil Absolute 15.03(H) 1.70 - 6.10 x10(3)/mc L [facility] Lymph % 3.0 % [facility] Lymphocytes Abs 0.5(L) 0.9 - 3.2 x10(3)/mc L [facility] LABORATORY Monocyte % 9.1 % [facility] Monocyte Abs 1.6(H) 0.3 - 0.9 x10(3)/mc L [facility] Eos % 0.0 % [facility] Eosinophils Abs 0.0 0.0 - 0.4 x10(3)/mc L [facility] Basophil % 0.2 % [facility] [...] HEMATOLOGY ORDER OLE [facility] [place] [address] * (ABNORMAL) Hemogram (02/18/2024 1:40 AM EDT) [...] RDW Standard Deviation 39.9 36.0 - 45.0 [facility] LABORATORY RDW coefficient of variation 13.2 11.4 - 13.8 % [facility] Mean Platelet Volume 9.9 7.6 - 12.9 fL [facility] NRBC% auto 0.0 % [facility] NRBC Absolute 0.000 0.000 - 0.000 x10(3)/mc L [facility] Blood 02/18/2024 1:40 AM EDT 02/18/2024 1:56 AM EDT Narrative Resulting Agency Comment Spec In Lab Neftali FRENCH HEMATOLOGY ORDER OLE [facility] [place] [address] * (ABNORMAL) Basic Metabolic Panel (non-fasting) (02/18/2024 [...] Lab Hayder Graham MD CHEMISTRY ORDERABLE S [facility] [place] [address] * (ABNORMAL) Troponin (02/18/2024 1:40 AM EDT) [...] value can be found in the [facility] Laboratory Test Catalog Troponin - [facility] Laboratory Test Catalog Reference: Fourth Morral Definition of Myocardial Infarction. Journal of the [employer] 2018;72:6515-4868 Blood 02/18/2024 1:40 AM EDT 02/18/2024 1:56 AM EDT Narrative Resulting Agency Comment Spec In Lab Hayder Graham MD CHEMISTRY ORDERABLE S Performing Organization Address [facility] [[email or web address]] Co de Phone Number [facility] [place] [address] * POCT Glucose (02/17/2024 8:13 PM EDT) Glucose, POC 142 65 - 199 mg/dL [facility] Comment: Supplemental ranges: <140 mg/dL before meals <180 mg/dL all other times of the day Blood 02/17/2024 8:13 PM EDT 02/17/2024 8:13 PM EDT Hayder Graham MD POINT OF CARE TEST ORDERABLES Performing Organization Address [facility] de Phone Number [facility] [place] [address] * POCT Glucose (02/17/2024 5:42 PM EDT) Glucose, POC 160 65 - 199 mg/dL [facility] Comment: Supplemental ranges: <140 mg/dL before meals <180 mg/dL all other times of the day Blood 02/17/2024 5:42 PM EDT 02/17/2024 5:42 PM EDT Hayder Graham MD POINT OF CARE TEST ORDERABLES Performing Organization Address [facility] [[email or web address]] Co de Phone Number [facility] [place] [address] * Hemoglobin (02/17/2024 5:42 PM EDT) Hemoglobin 13.7 13.7 - 16.5 g/dL [facility] Blood 02/17/2024 5:42 PM EDT 02/17/2024 6:10 PM EDT Narrative Resulting Agency Comment Spec In Lab Hayder Graham MD HEMATOLOGY ORDERABL ES Performing Organization Address [facility]/ZIP Co de Phone Number [facility] [place] [address] * Potassium (02/17/2024 5:42 PM EDT) Pathologist [facility] Potassium 4.3 3.5 - 5.0 mmol/L [facility] [...] MD CHEMISTRY ORDERABLE S Performing Organization Address [facility] [[email or web address]] Co de Phone Number [facility] [place] [address] * (ABNORMAL) BLOOD GAS 2 ARTERIAL (02/17/2024 [...] [facility] FIO2 Art 40 % [facility] PF Ratio Art 195 [facility] Blood 02/17/2024 4:18 PM EDT 02/17/2024 4:18 PM EDT Hayder Graham MD POINT OF CARE TEST ORDERABLES Performing Organization Address City/State/[facility] [[email or web address]] Co de Phone Number [facility] [place] [address] * XR Chest One View (02/17/2024 1:44 PM EDT) Lee Silber WORKSTATION ID [id number] RAD Anatomical Region Laterality Modality Chest N/A Digital Radiogra phy Impressions 02/17/2024 2:12 PM EDT 1. ??No definite pleural fluid collection or pneumothorax. 2. ??Right IJ [place] catheter tip terminates in a descending [...] who have questions please contact the health elderly caregiver that requested your imaging first. ? Electronically signed by: Denzel Hankins MD, [facility] ??([phone]), at 02/17/2024 2:12 PM Narrative 02/17/2024 2:12 PM EDT EXAMINATION: XR CHEST ONE VIEW CLINICAL HISTORY: s/p avr/cabg eval effusions TECHNIQUE: 1 view of the chest COMPARISON: Chest x-ray 01/09/2024, chest CT 02/03/2024 FINDINGS: ET tube tip terminates 5.2 cm above the carlos. Right IJ [place]aila catheter tip terminates in a descending [...] 5.2 cm above the carlos. Right IJ [place]-Ganzcatheter tip terminates in a descending branch [...] fluid collection or pneumothorax. 2. Right IJ [place] catheter tip terminates in a descending branch ofthe right pulmonary artery. Suggest catheter retraction. 3. Additional support lines and tubes as above. Thank you for letting us participate in the care of this patient. If youare a health care provider and have any questions regarding this report,please contact the number below. For patients who have questions please contactthe health elderly caregiver that requested your imaging first. Electronically signed by: Denzel Hankins MD, [facility]([phone]), at 02/17/2024 2:12 PM Hayder Graham MD [...] [facility] FIO2 Art 100 % [facility] PF Ratio Art 320 [facility] Blood 02/17/2024 1:31 PM EDT 02/17/2024 1:31 PM EDT Hayder Graham MD POINT OF CARE TEST ORDERABLES [facility] [place] [address] * (ABNORMAL) Coox2 (02/17/2024 1:21 PM EDT) [...] CARE TEST ORDERABLES [facility] [address] [place] [address] * (ABNORMAL) BLOOD GAS 2 ARTERIAL (02/17/2024 [...] OF CARE TEST ORDERABLES Performing Organization Address [facility] [[email or web address]] Co de Phone Number [facility] [place] [address] * (ABNORMAL) Fibrinogen (02/17/2024 12:10 PM EDT) [...] MD HEMATOLOGY ORDERABLE S Performing Organization Address [facility] [[email or web address]] Co de Phone Number [facility] [place] [address] * (ABNORMAL) Thrombin time (02/17/2024 12:10 PM [...] MD HEMATOLOGY ORDERABLE S Performing Organization Address [facility] [[email or web address]] Co de Phone Number [facility] [place] [address] * APTT (02/17/2024 12:10 PM EDT) Partial [...] MD HEMATOLOGY ORDERABLE S Performing Organization Address [facility]/ZIP Co de Phone Number [facility] [place] [address] * (ABNORMAL) Prothrombin Time (02/17/2024 12:10 PM [...] HEMATOLOGY ORDERABLE S [facility] [place] [address] * (ABNORMAL) Hemogram (02/17/2024 12:10 PM EDT) [...] [facility] NRBC% auto 0.0 % [facility] NRBC Absolute 0.000 0.000 - 0.000 x10(3)/mc L [facility] Blood 02/17/2024 12:1 0 PM EDT 02/17/2024 12:19 PM EDT Narrative Resulting Agency Comment Spec In Lab Tara York MD HEMATOLOGY ORDERABLE S [facility] [place] [address] * (ABNORMAL) BLOOD GAS 2 ARTERIAL (02/17/2024 [...] [facility] Comment: Noted by optical instrument assembly [...] CARE TEST ORDERABLES [facility] [place] [address] * (ABNORMAL) BLOOD GAS 2 ARTERIAL (02/17/2024 [...] [facility] Comment: Noted by optical instrument assembly [...] OF CARE TEST ORDERABLES Performing Organization Address [facility]/ZIP Co de Phone Number [facility] [place] [address] * (ABNORMAL) Hemoglobin and Hematocrit, blood (02/17/2024 [...] MD HEMATOLOGY ORDERABL ES Performing Organization Address [facility]/ZIP Co de Phone Number [facility] [place] [address] * (ABNORMAL) Platelet count (02/17/2024 11:04 AM EDT) Platelet 106(L) 145 - 357 x10(3)/mc L [facility] Immature Plt % 1.6 0.0 - 7.4 % [facility] Comment: Limitation of the Immature Platelet Fraction (IPF)-May be less reliable when the platelet count is less than 60s483/uL due to statistical imprecision. The IPF value [...] in a decreased state of production. References: [employer] The Clinical Value of the Immature Platelet Fraction (IPF) in Cell Recovery Document Number [id number] 03/2011 [employer] The Role of the Immature Platelet Fraction (IPF) in the Differential Diagnosis of Thrombocytopenia, Document [id number] V002/15/14 P002/17 Blood 02/17/2024 11:0 4 AM EDT 02/17/2024 11:12 AM EDT Narrative Resulting Agency Comment Spec In Lab Hayder Graham MD HEMATOLOGY ORDERABL ES Performing Organization Address City/State/[facility] [[email or web address]] Co de Phone Number [facility] [place] [address] * (ABNORMAL) Fibrinogen (02/17/2024 11:04 AM EDT) [...] Lab Hayder Graham MD HEMATOLOGY ORDERABL ES [facility] [place] [address] * (ABNORMAL) BLOOD GAS 2 ARTERIAL (02/17/2024 [...] CARE TEST ORDERABLES [facility] [place] [address] * (ABNORMAL) BLOOD GAS 2 ARTERIAL (02/17/2024 [...] CARE TEST ORDERABLES [facility] [place] [id number] * Surgical Pathology Report (02/17/2024 10:01 AM EDT) Final Diagnosis [id number] ? Location: [facility]; [facility]; The signing pathologist has (i) examined the relevant preparation(s) for the specimen(s) and (ii) rendered or confirmed the diagnosis(es). . ?Surgical Pathology DIAGNOSIS Aortic valve leaflets, excision: Valve leaflets with myxoid degeneration, nodular fibrosis and dystrophic calcifications. Electronically signed by: ?Lindsay FERNANDEZ, Livier Gonzalez Verified: ??02/24/2024 13:49 ??Pathologist Performed at: ??-[facility] Dept. of [place]ology, [place] [address] Flash Drier Operator: Job Brewer MD, FCAP, ??CLIA Certificate: [id number] SPECIMEN(S) SUBMITTED A - Aortic Valve Leaflets, [...] Sections Processing Blocks submitted for decalcification: A1. Geological Specialist sections in 1 cassette labeled A1. ??ajw 02/24/2024 1:49 PM EDT [facility] AORTIC STRUCTURE / Unknown 02/17/2024 10:01 AM EDT 02/17/2024 10:01 AM EDT Hayder Graham MD PATHOLOGY/CYTOLOGY ORDERABLES Performing Organization Address City/[facility]/ZIP Co de Phone Number [facility] [place] [address] * Specimen to Pathology (02/17/2024 10:01 AM EDT) AP Specimen 02/17/2024 10:0 1 AM EDT 02/17/2024 10:01 AM EDT Narrative [facility] - 02/17/2024 10:01 AM EDT Specimen requisition ordered. ??Separate Pathology report to follow Hayder Graham MD PATHOLOGY/CYTOLOGY ORDERABLES Performing Organization Address City/[facility]/ZIP Co de Phone Number [facility] [place] [address] * (ABNORMAL) BLOOD GAS 2 ARTERIAL (02/17/2024 9:35 AM EDT) pH, Arterial 7.33(L) 7.35 - 7.45 [facility] PCO2, Arterial 35 35 - 45 mmHg [facility] PO2, Arterial 318(H) 85 - 104 mmHg [facility] Bicarbonate, Arterial 17.9(L) 20.0 - 26.0 mmol/L [facility] Base Excess, Arterial -8.0(L) -3.0 [...] CARE TEST ORDERABLES [facility] [place] [address] * (ABNORMAL) BLOOD GAS 2 VENOUS (02/17/2024 9:34 AM EDT) pH, Venous 7.22(Criti marquez) 7.32 - 7.42 [facility] Comment:Noted by optical instrument assembly supervisor. PCO2, Venous 43 41 - 51 mmHg [facility] Comment:Noted by optical instrument assembly supervisor. PO2, Venous 57(H) 25 - 40 mmHg [facility] Comment:Noted by optical instrument assembly supervisor. Bicarbonate, Venous 17.1 mmol/L [facility] Comment:Noted by optical instrument assembly supervisor. Base Excess, Venous -10.6 mmol/L [facility] Comment:Noted by optical instrument assembly supervisor. Hgb Blood Gas 11.2(L) 13.7 - 16.5 g/dL [facility] Comment:Noted by optical instrument assembly supervisor. Oxyhemoglobin, Venous 86.5 % [facility] Comment:Noted by optical instrument assembly supervisor. Carboxyhemoglob in, Venous 0.3 % [facility] Comment: Noted by optical instrument assembly supervisor. Nonsmokers: 0.5-1.5% COHB Smokers: Variable, but usually less than 10% Toxic: 20-30% COHB Lethal: Greater than 60% COHB Methemoglobin, Venous 0.0 <=1.5 % [facility] Comment:Noted by optical instrument assembly supervisor. Na Whole Blood 156(H) 135 - 145 mmol/L [facility] Comment:Noted by optical instrument assembly supervisor. K Whole Blood 5.5(H) 3.5 - 5.0 mmol/L [facility] Comment: Noted by optical instrument assembly supervisor. Please note: Patients with WBC >100,000 may have falsely elevated Potassium levels. Contact the Clinical Chemistry Laboratory if there are any questions. ICa Whole Blood 1.03(L) 1.15 - 1.33 mmol/L [facility] Comment: Noted by optical instrument assembly supervisor. Note: ??Total bilirubin higher than 20 mg/dL may lead to falsely low ionized calcium. CL Whole Blood 100 98 - 107 mmol/L [facility] Comment:Noted by optical instrument assembly supervisor. Gluc Whole Bld 132 65 - 199 mg/dL [facility] Comment: Noted by optical instrument assembly supervisor. Diabetes: >=200 mg/dL plus symptoms Lactate WB 1.0 0.5 - 2.2 mmol/L [facility] Comment:Noted by optical instrument assembly supervisor. Blood Gas Source Venous [facility] Blood 02/17/2024 9:34 AM EDT 02/17/2024 9:34 AM EDT Hayder Graham MD POINT OF CARE TEST ORDERABLES [facility] [place] [address] * (ABNORMAL) BLOOD GAS 2 ARTERIAL (02/17/2024 [...] OF CARE TEST ORDERABLES Performing Organization Address [facility] [[email or web address]] Co de Phone Number [facility] [place] [address] * POCT Glucose (02/17/2024 6:38 AM EDT) Glucose, POC 98 65 - 199 mg/dL [facility] Comment: Supplemental ranges: <140 mg/dL before meals <180 mg/dL all other times of the day Blood 02/17/2024 6:38 AM EDT 02/17/2024 6:38 AM EDT Hayder Graham MD POINT OF CARE TEST ORDERABLES Performing Organization Address [facility] [[email or web address]] Co de Phone Number [facility] [place] [address] * Transesophageal Echo/OR (02/17/2024 6:33 AM EDT) [...] [facility] and post-operative evaluation of cardiac function [...] Routine 08 (Given - Provider: Reilly N Maplewood, RN) 0907 (Given - Provider: Mishel Merrill, [...] Routine documented in this encounter Care Teams Service Delivery Director Relationship Specialty Start Date End Date Aparna Jordan APRN PCP - General Family Medicine 10/21/23 05/26/24 documented as of this encounter
--- OUTSIDE RECORDS SUMMARY | 2024-07-09 10:07 | XMS_ITS | Encounter Summary ---
Author Organization [facility] [place] [address] Care Team Providers Care Marine Erector Name Role Phone Vanessa Christian Lane DOTSON Primary Care Provider [phone] Reason for Referral * Diagnostic Test (Routine) - Closed Specialty Diagnoses / Procedures Referred By Contac t Referred To Contact Radiology Diagnoses Nonrheumatic aortic valve stenosis Procedures CT Chest wo Contrast (Generic) Louisa Cho PA [facility] [place] [address] [facility] [place] [address] Referral ID Status Reason Start Date Expiration Date V isits Requested Visits Authorized [id number] Closed Specialty Service Requested 01/10/2024 07/11/2025 1 1 Reason for Visit * Diagnostic Test (Routine) - Closed Specialty Diagnoses / Procedures Referred By Contac t Referred To Contact Radiology Diagnoses Nonrheumatic aortic valve stenosis Procedures CT Chest wo Contrast (Generic) Louisa Cho PA [facility] [place] [address] [facility] [place] [address] Referral ID Status Reason Start Date Expiration Date V isits Requested Visits Authorized [id number] Closed Specialty Service Requested 01/10/2024 07/11/2025 1 1 Encounter Details Date Type Department Care Team (Latest Contact Info) Description 02/03/2024 7:36 AM EDT - 02/03/2024 8:05 AM EDT Hospital En[facility] [place] [address] Zak Farmer MD [facility] [place] [address] Nonrheumatic aortic valve stenosis Discharge Disposition: Home Social History Tobacco Use Types Packs/Day Years Used Date Smoking Tobacco: Former Cigarettes Smokeless Tobacco: Never Comments:Quit 15 + years ago Alcohol Use Standard Drinks/Week Comments Yes 0 (1 standard drink = 0.6 oz pur e alcohol) rare [facility] Inpatient Questions Answer Date [...] PM EST Office Visit Cardiology at [address] [place] [address] Neftali Ernandez MD [facility] [place] [address] documented as of this encounter Procedures Procedure Name Priority Date/Time Associated Diagnosis Comments CT CHEST WO CONTRAST (GENERIC) Routine 02/03/2024 7:44 AM EDT Nonrheumatic aortic valve stenosis documented in this encounter Results * CT Chest wo Contrast (Generic) (02/03/2024 7:44 AM EDT) [employer] WORKSTATION ID [id number] DH RAD Anatomical Region Laterality Modality Chest [...] have questions please contact the health resident caregiver that requested your imaging first. ? [...] nodule along the minor fissure (series [id number]) and a 8 mm right lower lobe [...] who have questions please contactthe health resident caregiver that requested your imaging first. Zak Farmer MD IMG CT ORDERABLES documented in this encounter Visit Diagnoses Diagnosis Nonrheumatic aortic valve stenosis Aortic valve disorders documented in this encounter Care Teams Marine Erector Relationship Specialty Start Date End Date Vanessa Christian APRN PCP - General Family Medicine 10/21/23 05/26/24 documented as of this encounter
--- OUTSIDE RECORDS SUMMARY | 2024-07-09 10:07 | XMS_ITS | Encounter Summary ---
[place] [address] Care Team Providers Care Delivery Manager Name Role Phone Aparna Jordan MAURI Primary Care Provider [phone] Reason for Referral * Diagnostic Test (Routine) - New Request Specialty Diagnoses / Procedures Referred By Contac t Referred To Contact Cardiology Diagnoses S/P AVR Procedures Echocardiogram Transthoracic Neftali Menon PA [facility] [place] [address] [facility] [place] [address] Referral ID Status Reason Start Date Expiration Date Visits Requested Visits Authorized [id number] New Request Specialty Service Requested 02/24/2024 02/23/2025 1 1 * Consultation (Routine) - Authorized Specialty Diagnoses / Procedures Referred By Contac t Referred To Contact Cardiology Diagnoses S/P AVR Hayder Graham MD [facility] [place] [address] Cardiac Rehab, [facility] [address] [place] [address] [place] [address] Referral ID Status Reason Start Date Expiration Date Visits Requested Visits Authorized [id number] Authorized Consult, Test & Treat 02/24/2024 08/22/2024 36 36 * Home Health Care (Routine) - Authorized Specialty Diagnoses / Procedures Referred By Sixto mendoza Referred To Contact Diagnoses S/P AVR Hayder Graham MD [facility] [place] [address] Referral ID Status Reason Start Date Expiration Date Visits Requested Visits Authorized [id number] Authorized Consult, Test & Treat 02/24/2024 08/22/2024 [...] MD [facility] [place] [address] [facility] Referral ID Status Reason Start Date Expiration Date Visits Re quested Visits Authorized [id number] 1 1 Encounter Details Date Type Department Care Team (Latest Contact Info) Description 02/17/2024 5:43 AM EDT - 02/24/2024 11:23 AM EDT Hospital Encounter Heart and Vascular Unit Level 4 [place] [address] Hayder Graham MD [facility] [place] [address] S/P AVR (Primary Dx); Aortic valve stenosis, [...] Patient Age: 63 y.o. Birthdate: 1960 Language: Afghan Race: White Ethnicity: Not nor Admit Date: 02/17/2024 Discharge Date: 02/24/24 Attending Physician: Hayder Graham MD Follow-up Recommendations for Providers: Please continue routine management of cardiovascular risk factors including blood pressure, lipids,glucose, etc. Please note any changes to medications. Patient to follow up with PCP, Aparna Jordan APRN, in 1-2 weeks. Patient to follow up with Assessment Analyst, Neftali Ernandez MD , in 2 weeks. Patient to follow up with Cardiac Surgeon, Dr. Hayder Graham, with a chest x-ray, EKG, and Echo. 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 Past Surgical History: Procedure Laterality Date PRO CABG, ARTERIAL, SINGLE N/A 02/17/2024 @CABG, USING ARTERIAL GRAFT;SINGLE ARTERIAL GRAFT (WRVU 33.75) performed by Hayder Graham MD at [facility] MAIN OR PRO CABG, ARTERY-VEIN, TWO N/A 02/17/2024 @CABG, TWO VENOUS GRAFTS & ARTERIAL GRAFT (WRVU 7.93) performed by Hayder Graham MD at [facility] MAIN OR PRO ENDOSCOPY W/VIDEO-ASST VEIN HARVEST, CABG Left 02/17/2024 ENDOSCOPIC HARVEST VEIN(S) FOR CABG (WRVU 0.31) performed by Hayder Graham MD at [facility] MAIN OR PRO REPLACEMENT PROSTHETIC AORTIC VALVE OPEN W CARDIOPULMONARY BYPASS HOMOGRF/STENT N/A 02/17/2024 @REPLACE AORTIC VALVE, OPEN, W\CPB, W\PROSTHETIC VALVE (WRVU 41.32) performed by Hayder Graham MD at [facility] MAIN OR Prior To Admission Medications Medications [...] insufficiency. He has glaucoma. He used to Jewel T[employer] until about 15 years ago. He has [...] Hayder Graham and/or the Cardiac Surgery Physician General Handling Supervisor Team may be reached at . [...] Please refer to the card with the [place] [employer] Guidelines for more information. You [...] Dr. Hayder Graham. You may use a [place] Track or treadmill but avoid any pulling [...] should resume a low fat, low cholesterol, [place] [employer] Diet. Driving: No driving until [...] while being managed by your PCP and/or Assessment Analyst. For future medication refills, please refer to your PCP and/or Assessment Analyst after your discharge from our service. Thank you REMOVE CHEST TUBE SUTURES ON OR AFTER 03/02/24 Home oxygen therapy: N/A Follow up appointments: You should follow up with your PCP, Aparna Jordan APRN, in 1-2 weeks. Our office will schedule an appointment with your Assessment Analyst, Neftali Ernandez MD , in 2 [...] Future Orders Complete By Expires Echocardiogram Transthoracic [80465 CPT(R)] 03/26/2024 09/25/2024 Process Instructions: Scheduling Instructions: Questions: Where will study be performed?: [facility] Clinics Does the patient have Congenital Heart Disease?: Does patient require sedation?: Sedation rationale: XR Chest PA & Lateral (Generic) [74388 83457 Custom] 03/26/2024 09/25/2024 Process Instructions: Scheduling Instructions: Questions: Portable exam?: Reason for exam and clinical history: s/p avr/cabg Clinical information / jerome questions for radiologist: Stat read required?: Date of injury if applicable: Requested Time: Where will study be performed?: [facility] Radiology Referral to Cardiac Rehab [[id number] Custom] As directed Process Instructions: If no [...] admission to Home Health. [address] Phone Number: Date of : 1960 Inpatient DOCUMENTATION FOR VNA SERVICES (INCLUDING THOSE PATIENTS WITH MEDICARE COVERAGE REQUIRING HOME VNA SERVICES AND/OR HOSPICE SERVICES) PATIENT'S LOCATION: Karlos Garcia [address] [place] [phone] Microelectronics Engineer's Name: self/family In discussion with the attending physician, it is certified that this patient is under their care and that they, or a Nurse Practitioner, or Physician General Handling Supervisor who is working directly with them, [...] for services as follows: HOME HEALTH AGENCY: [facility] [address] [place] [address] RN orders: Cardiopulmonary assessment, incisional assessment, assess [...] issues please call the Cardiology Office at [phone] FOR MEDICARE ONLY: (please delete this section [...] APRN [address] / [place] [address] . All VNA agencies which cover the area of patient's residence have been reviewed, either verbally or in writing, and patient/family have chosen the home health care agency noted. Questions: Disciplines Requested: Nursing Physical Therapy Arrangements for VNA/home care: As above. Signed: NEFTALI MENON PA-C [facility] Section of Cardiac Surgery [facility] [address] FAX [phone] Date: 02/24/2024 CC: Aparna Jordan, MAURI Jordan, Aparna Sherman APRN [address] [place] [address] documented in this encounter Discharge Instructions * [...] Hayder Graham and/or the Cardiac Surgery Physician General Handling Supervisor Team may be reached at . [...] Please refer to the card with the [place] [employer] Guidelines for more information. You [...] Dr. Hayder Graham. You may use a [place] Track or treadmill but avoid any pulling [...] should resume a low fat, low cholesterol, [place] [employer] Diet. Driving: No driving until [...] while being managed by your PCP and/or Assessment Analyst. For future medication refills, please refer to your PCP and/or Assessment Analyst after your discharge from our service. Thank you REMOVE CHEST TUBE SUTURES ON OR AFTER 03/02/24 Home oxygen therapy: N/A Follow up appointments: You should follow up with your PCP, Aparna Jordan APRN, in 1-2 weeks. Our office will schedule an appointment with your Assessment Analyst, Neftali Ernandez MD , in 2 [...] 0600 and on the weekends please page [phone]. * Eric Barahona PA - 02/23/2024 9:27 [...] 0600 and on the weekends please page [phone]. * Tiffanie Owens PTA - 02/22/2024 2:48 [...] d/c for 10 days. 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 He works Precautions/Special Considerations: STERNAL [...] LRAD and supervision Time IN / OUT: 5931-6588 Total Time: 30 minutes; TEFx2 Tiffanie Owens Pager: [phone] Physical Therapy Inpatient Rehabilitation Department * Romeo [...] 0600 and on the weekends please page [phone]. * Kelley Hinson, ENERGY RISK MANAGEMENT ANALYST - 02/21/2024 10:15 AM EDT Physical Therapy [...] d/c for 10 days. 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 He works Precautions/Special Considerations: STERNAL [...] LRAD and supervision Time IN / OUT: 9428-9511 Total Time: 25 minutes; TEF 2 Kelley Hinson PTA Pager: [phone] Physical Therapy Inpatient Rehabilitation Department * Louisa hCo PA - 02/21/2024 7:59 AM EDT Cardiac [...] 0600 and on the weekends please page [phone]. * Kelley Hinson PTA - 02/20/2024 3:32 [...] at that time Kelley Hinson PTA Pager: [phone] Physical Therapy Inpatient Rehab Department * Louisa [...] 0600 and on the weekends please page [phone]. * Maris Benavides, PT - 02/19/2024 11:22 [...] d/c for 10 days. 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 He works. Precautions/Special Considerations: STERNAL [...] outlined inthis evaluation. MARIS BENAVIDES, PT Pager: [phone] Physical Therapy Inpatient Rehabilitation Department Time IN / OUT: 8755-8889 Total Time: 38 (eval) minutes; * Antonio [...] 0600 and on the weekends please page [phone]. * Minnie Begum PA - 02/18/2024 8:25 [...] 0600 and on the weekends please page [phone]. * Kim Ha RCP - 02/17/2024 2:25 [...] plan since last visit. Hayder Graham MD [phone] Source Note - Hayder Graham MD - [...] insufficiency. He has glaucoma. He used to Jewel Toned until about 15 years ago. He has [...] given written informed consent. Hayder Graham MD [phone] * Hayder Graham MD - 02/17/2024 7:00 [...] given written informed consent. Hayder Graham MD [phone] documented in this encounter Miscellaneous Notes * [...] for follow-up Home Health & Hospice, [address] [place] [address] Cardiac Rehab, [address] [place] [address] Transportation: family or friend will provide Functional status prior to admission: Independent Home Environment: Others in the home: alone. Current Living Arrangements: home/apartment/condo. Accessibility Concerns:a few steps to enter 1 floor home. Current Functional Ability: Assistive Person and Equipment DME used at home: none DME Needed at Discharge: N/A Patient is insured through: Primary Insurance: [employer] Payor: [facility] / Plan: [facility] PPO / Product Type: *No Product [...] pain managed with scheduled Tylenol. Worked with [employer]. Ambulated in the roque multiple times during [...] anticipated Patient is insured through: Primary Insurance: [employer] Payor: [facility] / Plan: [facility] PPO / Product Type: *No Product type* / Secondary Insurance: N/A Last Physical Therapy Recommendation: home with home health (Str coming to stay for a week or two upon d/c) with to be determined (owns rolling walker, shower seat) Plan for discharge is: Home w/ Services Outpatient Agency/Support Group Needs: Homecare agency Home Health Services: Physical Therapy, Registered Nurse Agency Referrals: [facility]. [address] [place] [address] Transportation: family or friend will provide Barriers to discharge: Discharge planning Plan going forward: Service Care Management will continue to follow and assist with discharge planning and coordination of care as indicated. 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 (Only good for 180 days) Any patient receiving care in [place] must abide by [place] law. The hierarchy for surrogate decision making [...] steady place to sleep or slept in [facility] (including now)?: No In the past 12 months has the [employer], gas, oil, or water [employer] threatened to shut off services in your [...] Home Address confirmed as: [address] [facility] [address] Physical address: [address] [facility], [address] Social & Family Supports: All names listed [...] none noted Health/Prescription Coverage: Primary Insurance: [facility] Payor: [facility] / Plan: [facility] PPO / Product Type: *No Product type* / Secondary Insurance: N/A ; Prescription Coverage: Yes Preferred Pharmacy: [id number] AT [address] [address] [place] Status: Patient is a : No Primary Care Provider confirmed: Aparna Jordan, INSURANCE REPRESENTATIVE [phone] Patient/Caregiver Goals of Treatment: dc to home Potential Needs for Transition of Care: home health care Agency Referrals: I have met with the patient to: discuss discharge planning needs. provide the [facility], Office of Care Management letter from the [employer] pertaining to rehab referrals. provide a letter describing our affiliations within the [facility] and educate about their right to choose where referrals are sent. provide a list of Home Health Agencies / Durable Medical Equipment vendors which serve their preferred geographic area. provided patient with [facility] Star Quality Rating handout. They have requested referrals to: [facility]. [address] [place] [address] Note routed to a Healthcare Receptionist who will communicate referrals to facilities and [...] Reina Greene RN CM, BSN, CMGT- Ext [phone] * Plan of Care - Binta Trinidad [...] Operative Note Patient Name: Karlos Garcia : [id number] MR#: [id number] Case Date: 02/17/2024 Surgeon: Surgeon(s) and Role: * Hayder Graham MD - Primary * Neftali Menon PA - Physician General Handling Supervisor Preoperative diagnosis: CAD Postoperative diagnosis: CAD, [...] Graham MD - 02/17/2024 8:20 AM EDT [facility] Operative Note Patient Name: Karlos Garcia : [id number] MR#: [id number] Case Date: 02/17/2024 Surgeon: Surgeons and Role: * Hayder Graham MD - Primary * Neftali Menon PA - Physician General Handling Supervisor Preoperative diagnosis: CAD Postoperative diagnosis: CAD, [...] mL Drains: Mediastinal and Left pleural Disposition: [facility] Procedure Description: The patient was [...] PM EST Office Visit Cardiology at [address] [place] [address] Neftali Ernandez MD [facility] [place] [place] [address] Scheduled Orders Name Type Priority Associated Diagnoses [...] Aortic Valve Open W Cardiopulmonary Bypass Homogrf/Stent (03661) Yes 02/17/2024 7:28 AM EDT CAD Cabg, Artery-Vein, Two (86030) Yes 02/17/2024 7:28 AM EDT CAD Cabg, Arterial, Single (68537) Yes 02/17/2024 7:28 AM EDT CAD Endoscopy W/Video-Asst Vein [place], Cabg (37597) Yes 02/17/2024 7:28 AM EDT CAD POCT [...] CHEMISTRY ORDERABLE S [facility] [place] [address] * (ABNORMAL) Basic Metabolic Panel (non-fasting) (02/23/2024 [...] MD CHEMISTRY ORDERABLES [facility] [place] [address] * Potassium (02/22/2024 4:30 AM EDT) Potassium [...] CHEMISTRY ORDERABLE S [facility] [place] [address] * (ABNORMAL) Basic Metabolic Panel (non-fasting) (02/21/2024 [...] 31 [facility] Comment:Add-on request. Samp le [...] Carpio MD CHEMISTRY ORDERABLES Performing Organization Address City/[facility]/ZIP Co de Phone Number [facility] [place] [address] * Lactate, whole blood, send to lab ([facility]) (02/21/2024 9:45 AM EDT) [facility] Lactate WB 2.0 0.5 - 2.2 mmol/L [facility] Blood 02/21/2024 9:45 AM EDT 02/21/2024 9:52 AM EDT Narrative Resulting Agency Comment Spec In Lab Hayder Graham MD CHEMISTRY ORDERABLE S Performing Organization Address [facility]/ZIP Co de Phone Number [facility] [place] [address] * (ABNORMAL) Hepatic Function Panel (02/21/2024 9:45 [...] ORDERABLE S Performing Organization Address [facility]/ZIP Co de Phone Number [facility] [place] [address] * Lipase (02/21/2024 9:45 AM EDT) Lipase 56 0 - 60 unit/L [facility] Blood 02/21/2024 9:45 AM EDT 02/21/2024 9:52 AM EDT Narrative Resulting Agency Comment Spec In Lab Hayder Graham MD CHEMISTRY ORDERABLE S Performing Organization Address [facility] Co de Phone Number [facility] [place] [address] * Amylase (02/21/2024 9:45 AM EDT) Amylase 69 28 - 100 unit/L [facility] Blood 02/21/2024 9:45 AM EDT 02/21/2024 9:52 AM EDT Narrative Resulting Agency Comment Spec In Lab Hayder Graham MD CHEMISTRY ORDERABLE S Performing Organization Address [facility] Co de Phone Number [facility] [place] [address] * Potassium (02/21/2024 3:08 AM EDT) Potassium [...] CHEMISTRY ORDERABLE S [facility] [place] [address] * XR Chest PA & Lateral (Generic) (02/20/2024 10:19 AM EDT) WORKSTATION ID [id number] RAD Anatomical Region Laterality Modality Chest N/A Digital Radiogra phy Impressions 02/20/2024 1:11 PM EDT Small pleural effusions. No pneumothorax Thank you for letting us participate in the care of this patient. ??If you are a health care provider and have any questions regarding this report, please contact the number below. ??For patients who have questions please contact the health vocational childcare teacher that requested your imaging first. ? Electronically signed by: Rogerio Cruz MD, [facility] ??([phone]), at 02/20/2024 1:11 PM Narrative 02/20/2024 1:11 [...] patients who have questions please contactthe health vocational childcare teacher that requested your imaging first. Hayder Graham MD IMG DX ORDERABLES * Scan, Peripheral Blood (02/20/2024 4:23 AM EDT) Pathologist [facility] Plat estimate Decreased [facility] RBC Morphology Normal [facility] Blood 02/20/2024 4:23 AM EDT 02/20/2024 4:42 AM EDT Narrative Resulting Agency Comment Spec In Lab Minnie FRENCH HEMATOLOGY CECILIO ALEMAN [facility] [place] [address] * (ABNORMAL) Differential, Automated (02/20/2024 4:23 AM EDT) [facility] Neutrophil % 81.7 % [facility] Neutrophil Absolute 10.37(H) 1.70 - 6.10 x10(3)/mc L [facility] Lymph % 7.4 % [facility] Lymphocytes Abs 0.9 0.9 - 3.2 x10(3)/mc L [facility] Monocyte % 9.7 % [facility] Monocyte Abs 1.2(H) 0.3 - 0.9 x10(3)/mc L [facility] Eos % 0.1 % [facility] Eosinophils Abs 0.0 0.0 - 0.4 x10(3)/[facility] Basophil % 0.2 % [facility] Baso Absolute 0.0 0.0 - 0.1 x10(3)/[facility] Immature Gran % 0.90 % [facility] Comment: Immature granulocytes(IG's)percentage and absolute count will include metamyelocytes, myelocytes, and promyelocytes. Blood smears from CBCs yielding IG's will be scanned manually for concordance. If this scan disagrees with the automated IG or if promyelocytes are noted, a manual differential will be performed. Immature Gran Absolute 0.12(H) 0.00 - 0.04 x10(3)/[facility] Blood 02/20/2024 4:23 AM EDT 02/20/2024 4:42 AM EDT Narrative Resulting Agency Comment Spec In Lab Minnie FRENCH HEMATOLOGY CECILIO ALEMAN [facility] [place] [address] * (ABNORMAL) Hemogram (02/20/2024 4:23 AM EDT) White Blood Cell 12.7(H) 4.0 - 9.5 x10(3)/[facility] Red Blood Cell 4.26(L) 4.58 - 5.54 x10(6)/ L [facility] Hemoglobin 12.3(L) [...] Platelet 88(L) 145 - 357 x10(3)/mc L [facility] RDW Standard Deviation 43.5 36.0 - 45.0 fL [facility] RDW coefficient of variation 13.7 11.4 - 13.8 % [facility] Mean Platelet Volume 10.2 7.6 - 12.9 fL [facility] NRBC% auto 0.0 % [facility] NRBC Absolute 0.000 0.000 - 0.000 x10(3)/mc L [facility] Blood 02/20/2024 4:23 AM EDT 02/20/2024 4:42 AM EDT Narrative Resulting Agency Comment Spec In Lab Minnie FRENCH HEMATOLOGY CECILIO ALEMAN [facility] [place] [address] * (ABNORMAL) Basic Metabolic Panel (non-fasting) (02/20/2024 4:23 AM EDT) Glucose 113 65 - 199 mg/dL [facility] Comment:Diabetes: >=200 mg/d L plus symptoms Blood Urea Nitrogen 20 10 - 20 mg/dL [facility] Comment:result rechecked-KS Creatinine 0.71(L) 0.80 - 1.50 mg/dL HOLDEN [...] ORDERABLE S Performing Organization Address [facility]/ZIP Co de Phone Number [facility] [place] [address] * Potassium (02/19/2024 3:57 AM EDT) [facility] Potassium 4.3 3.5 - 5.0 mmol/L HOLDEN [...] CHEMISTRY ORDERABLE S [facility] [place] [address] * POCT Glucose (02/18/2024 8:24 AM EDT) Glucose, POC 157 65 - 199 mg/dL [facility] Comment: Supplemental ranges: <140 mg/dL before meals <180 mg/dL all other times of the day Blood 02/18/2024 8:24 AM EDT 02/18/2024 8:24 AM EDT Hayder Graham MD POINT OF CARE TEST ORDERABLES Performing Organization Address City/[facility]/ZIP Co de Phone Number [facility] [place] [address] * Scan, Peripheral Blood (02/18/2024 1:40 AM EDT) [facility] Plat estimate Decreased [facility] RBC Morphology Normal [facility] Blood 02/18/2024 1:40 AM EDT 02/18/2024 1:56 AM EDT Narrative Resulting Agency Comment Spec In Lab Neftali FRENCH HEMATOLOGY ORDER OLE Performing Organization Address City/[facility]/ZIP Co de Phone Number [facility] [place] [address] * (ABNORMAL) Differential, Automated (02/18/2024 1:40 AM EDT) [facility] Neutrophil % 87.1 % [facility] Neutrophil Absolute 15.03(H) 1.70 - 6.10 x10(3)/mc L [facility] Lymph % 3.0 % [facility] Lymphocytes Abs 0.5(L) 0.9 - 3.2 x10(3)/mc L [facility] Monocyte % 9.1 % [facility] Monocyte Abs 1.6(H) 0.3 - 0.9 x10(3)/mc L [facility] Eos % 0.0 % [facility] Eosinophils Abs 0.0 0.0 - 0.4 x10(3)/mc L [facility] Basophil % 0.2 % [place] [...] Absolute 0.10(H) 0.00 - 0.04 x10(3)/ L [facility] Blood 02/18/2024 1:40 AM EDT 02/18/2024 1:56 AM EDT Narrative Resulting Agency Comment Spec In Lab Neftali FRENCH HEMATOLOGY ORDER OLE [facility] [place] [address] * (ABNORMAL) Hemogram (02/18/2024 1:40 AM EDT) White Blood Cell 17.2(H) 4.0 - 9.5 x10(3)/ L [facility] [...] Standard Deviation 39.9 36.0 - 45.0 fL [facility] RDW coefficient of variation 13.2 11.4 - 13.8 % [facility] Mean Platelet Volume 9.9 7.6 - 12.9 fL [facility] NRBC% auto 0.0 % [facility] NRBC Absolute 0.000 0.000 - 0.000 x10(3)/mc L [facility] Blood 02/18/2024 1:40 AM EDT 02/18/2024 1:56 AM EDT Narrative Resulting Agency Comment Spec In Lab Neftali FRECNH HEMATOLOGY ORDER OLE [facility] [place] [address] * (ABNORMAL) Basic Metabolic Panel (non-fasting) (02/18/2024 [...] CHEMISTRY ORDERABLE S [facility] [place] [address] * (ABNORMAL) Troponin (02/18/2024 1:40 AM EDT) Troponin-T, High Sensitivity 342(H) <=22 ng/L [facility] [...] can be found in the [facility] Laboratory Test Catalog Troponin - [facility] Laboratory Test Catalog Reference: Fourth [place] Definition of Myocardial Infarction. Journal of the [place] [employer] 2018;72:3975-2624 Blood 02/18/2024 1:40 AM EDT 02/18/2024 1:56 AM EDT Narrative Resulting Agency Comment Spec In Lab Hayder Graham MD CHEMISTRY ORDERABLE S [facility] [place] [address] * POCT Glucose (02/17/2024 8:13 PM EDT) Glucose, POC 142 65 - 199 mg/dL [facility] Comment: Supplemental ranges: <140 mg/dL before meals <180 mg/dL all other times of the day Blood 02/17/2024 8:13 PM EDT 02/17/2024 8:13 PM EDT Hayder Graham MD POINT OF CARE TEST ORDERABLES Performing Organization Address [facility]/ZIP Co de Phone Number [facility] [place] [address] * POCT Glucose (02/17/2024 5:42 PM EDT) Glucose, POC 160 65 - 199 mg/dL [facility] Comment: Supplemental ranges: <140 mg/dL before meals <180 mg/dL all other times of the day Blood 02/17/2024 5:42 PM EDT 02/17/2024 5:42 PM EDT Hayder Graham MD POINT OF CARE TEST ORDERABLES Performing Organization Address City/[facility]/ZIP Co de Phone Number [facility] [place] [address] * Hemoglobin (02/17/2024 5:42 PM EDT) Hemoglobin 13.7 13.7 - 16.5 g/dL [facility] Blood 02/17/2024 5:42 PM EDT 02/17/2024 6:10 PM EDT Narrative Resulting Agency Comment Spec In Lab Hayder Graham MD HEMATOLOGY ORDERABL ES Performing Organization Address [facility] Co de Phone Number [facility] [place] [address] * Potassium (02/17/2024 5:42 PM EDT) Pathologist [facility] Potassium 4.3 3.5 - 5.0 mmol/L [facility] [...] ORDERABLE S Performing Organization Address [facility] de Phone Number [facility] [place] [address] * (ABNORMAL) BLOOD GAS 2 ARTERIAL (02/17/2024 [...] [facility] PF Ratio Art 195 [facility] Blood 02/17/2024 4:18 PM EDT 02/17/2024 4:18 PM EDT Hayder Graham MD POINT OF CARE TEST ORDERABLES Performing Organization Address City/State/[facility] Co de Phone Number [facility] [place] [address] * XR Chest One View (02/17/2024 1:44 PM EDT) WORKSTATION ID [id number] RAD Anatomical Region Laterality Modality Chest N/A [...] who have questions please contact the health vocational childcare teacher that requested your imaging first. ? Electronically signed by: Denzel Hankins MD, [facility] ??([phone]), at 02/17/2024 2:12 PM Narrative 02/17/2024 2:12 [...] patients who have questions please contactthe health vocational childcare teacher that requested your imaging first. Electronically signed by: Denzel Hankins MD, [facility]([phone]), at 02/17/2024 2:12 PM Hayder Graham MD [...] [facility] PF Ratio Art 320 [facility] Blood 02/17/2024 1:31 PM EDT 02/17/2024 1:31 PM EDT Hayder Graham MD POINT OF CARE TEST ORDERABLES [facility] [place] [address] * (ABNORMAL) Coox2 (02/17/2024 1:21 PM EDT) [...] CARE TEST ORDERABLES [facility] [place] [address] * (ABNORMAL) BLOOD GAS 2 ARTERIAL (02/17/2024 [...] TEST ORDERABLES Performing Organization Address [facility] de Phone Number [facility] [place] [address] * (ABNORMAL) Fibrinogen (02/17/2024 12:10 PM EDT) [...] ORDERABLE S Performing Organization Address [facility] de Phone Number [facility] [place] [address] * (ABNORMAL) Thrombin time (02/17/2024 12:10 PM [...] MD HEMATOLOGY ORDERABLE S Performing Organization Address [facility] de Phone Number [facility] [place] [address] * APTT (02/17/2024 12:10 PM EDT) Partial [...] ORDERABLE S Performing Organization Address [facility] de Phone Number [facility] [place] [address] * (ABNORMAL) Prothrombin Time (02/17/2024 12:10 PM [...] HEMATOLOGY ORDERABLE S [facility] [place] [address] * (ABNORMAL) Hemogram (02/17/2024 12:10 PM EDT) [...] [facility] NRBC% auto 0.0 % [facility] NRBC Absolute 0.000 0.000 - 0.000 x10(3)/mc L [facility] Blood 02/17/2024 12:1 0 PM EDT 02/17/2024 12:19 PM EDT Narrative Resulting Agency Comment Spec In Lab Tara York MD HEMATOLOGY ORDERABLE S [facility] [place] [address] * (ABNORMAL) BLOOD GAS 2 ARTERIAL (02/17/2024 [...] [facility] Comment: Noted by legal instruments examiner. Please note: Patients with WBC >100,000 may [...] CARE TEST ORDERABLES [facility] [place] [address] * (ABNORMAL) BLOOD GAS 2 ARTERIAL (02/17/2024 [...] [facility] Comment: Noted by legal instruments examiner. Please note: Patients with WBC >100,000 may [...] OF CARE TEST ORDERABLES Performing Organization Address City/[facility]/ZIP Co de Phone Number [facility] [place] [address] * (ABNORMAL) Hemoglobin and Hematocrit, blood (02/17/2024 11:04 AM EDT) Hemoglobin 9.6(L) 13.7 - 16.5 g/dL [facility] [...] HEMATOLOGY ORDERABL ES [facility] [place] [address] * (ABNORMAL) Platelet count (02/17/2024 11:04 AM EDT) Platelet 106(L) 145 - 357 x10(3)/mc L [facility] Immature Plt % 1.6 0.0 - 7.4 % [facility] Comment: Limitation of the Immature Platelet Fraction (IPF)-May be less reliable when the platelet count is less than 58w694/uL due to statistical imprecision. The IPF value [...] in a decreased state of production. References: [employer] The Clinical Value of the Immature Platelet Fraction (IPF) in Cell Recovery Document Number [id number] 03/2011 [employer] The Role of the Immature Platelet Fraction (IPF) in the Differential Diagnosis of Thrombocytopenia, Document MKT-[id number] V002/15/14 P014 Blood 02/17/2024 11:0 4 AM EDT 02/17/2024 11:12 AM EDT Narrative Resulting Agency Comment Spec In Lab Hayder Graham MD HEMATOLOGY ORDERABL ES [facility] [place] [address] * (ABNORMAL) Fibrinogen (02/17/2024 11:04 AM EDT) Pathologist [facility] Fibrinogen 149(L) 200 - 393 mg/dL HOLD[facility] [...] HEMATOLOGY ORDERABL ES [facility] [place] [address] * (ABNORMAL) BLOOD GAS 2 ARTERIAL (02/17/2024 [...] OF CARE TEST ORDERABLES Performing Organization Address City/State/[facility] Co de Phone Number [facility] [place] [address] * (ABNORMAL) BLOOD GAS 2 ARTERIAL (02/17/2024 [...] OF CARE TEST ORDERABLES Performing Organization Address City/State/[facility] Co de Phone Number [facility] [place] [address] * Surgical Pathology Report (02/17/2024 10:01 AM EDT) Final Diagnosis [id number] ? Location: [facility]; [address] [place] [address] The signing pathologist has (i) examined the relevant preparation(s) for the specimen(s) and (ii) rendered or confirmed the diagnosis(es). . ?Surgical Pathology DIAGNOSIS Aortic valve leaflets, excision: Valve leaflets with myxoid degeneration, nodular fibrosis and dystrophic calcifications. Electronically signed by: ?Livier Montoya MD Verified: ??02/24/2024 13:49 ??Pathologist Performed at: ??-[facility] Dept. of Pathology, [place] [address] Gluer And Wedger: Job Brewer MD, AP, ??CLIA Certificate: [id number] SPECIMEN(S) SUBMITTED A - Aortic Valve Leaflets, [...] Sections Processing Blocks submitted for decalcification: A1. College H[employer] sections in 1 cassette labeled A1. ??ajw 02/24/2024 1:49 PM EDT [facility] AORTIC STRUCTURE / Unknown 02/17/2024 10:01 AM EDT 02/17/2024 10:01 AM EDT Hayder Graham MD PATHOLOGY/CYTOLOGY ORDERABLES [facility] [place] [address] * Specimen to Pathology (02/17/2024 10:01 AM EDT) AP Specimen 02/17/2024 10:0 1 AM EDT 02/17/2024 10:01 AM EDT Narrative [facility] - 02/17/2024 10:01 AM EDT Specimen requisition ordered. ??Separate Pathology report to follow Hayder Graham MD PATHOLOGY/CYTOLOGY ORDERABLES [facility] [place] [address] * (ABNORMAL) BLOOD GAS 2 ARTERIAL (02/17/2024 [...] CARE TEST ORDERABLES [facility] [place] [address] * (ABNORMAL) BLOOD GAS 2 VENOUS (02/17/2024 9:34 AM EDT) pH, Venous 7.22(Criti marquez) 7.32 - 7.42 [facility] Comment:Noted by legal instruments examiner. PCO2, Venous 43 41 - 51 mmHg [facility] Comment:Noted by legal instruments examiner. PO2, Venous 57(H) 25 - 40 mmHg [facility] Comment:Noted by legal instruments examiner. Bicarbonate, Venous 17.1 mmol/L [facility] Comment:Noted by legal instruments examiner. Base Excess, Venous -10.6 mmol/L [facility] Comment:Noted by legal instruments examiner. Hgb Blood Gas 11.2(L) 13.7 - 16.5 g/dL [facility] Comment:Noted by legal instruments examiner. Oxyhemoglobin, Venous 86.5 % [facility] Comment:Noted by legal instruments examiner. Carboxyhemoglob in, Venous 0.3 % [facility] Comment: Noted by legal instruments examiner. Nonsmokers: 0.5-1.5% COHB Smokers: Variable, but usually less than 10% Toxic: 20-30% COHB Lethal: Greater than 60% COHB Methemoglobin, Venous 0.0 <=1.5 % [facility] Comment:Noted by legal instruments examiner. Na Whole Blood 156(H) 135 - 145 mmol/L [facility] Comment:Noted by legal instruments examiner. K Whole Blood 5.5(H) 3.5 - 5.0 mmol/L [facility] Comment: Noted by legal instruments examiner. Please note: Patients with WBC >100,000 may have falsely elevated Potassium levels. Contact the Clinical Chemistry Laboratory if there are any questions. ICa Whole Blood 1.03(L) 1.15 - 1.33 mmol/L [facility] Comment: Noted by legal instruments examiner. Note: ??Total bilirubin higher than 20 mg/dL may lead to falsely low ionized calcium. CL Whole Blood 100 98 - 107 mmol/L [facility] Comment:Noted by legal instruments examiner. Gluc Whole Bld 132 65 - 199 mg/dL [facility] Comment: Noted by legal instruments examiner. Diabetes: >=200 mg/dL plus symptoms Lactate WB 1.0 0.5 - 2.2 mmol/L [facility] Comment:Noted by legal instruments examiner. Blood Gas Source Venous [facility] Blood 02/17/2024 9:34 AM EDT 02/17/2024 9:34 AM EDT Hayder Graham MD POINT OF CARE TEST ORDERABLES [facility] [place] [address] * (ABNORMAL) BLOOD GAS 2 ARTERIAL (02/17/2024 [...] TEST ORDERABLES Performing Organization Address [facility] de Phone Number [facility] [place] [address] * POCT Glucose (02/17/2024 6:38 AM EDT) Glucose, POC 98 65 - 199 mg/dL [facility] Comment: Supplemental ranges: <140 mg/dL before meals <180 mg/dL all other times of the day Blood 02/17/2024 6:38 AM EDT 02/17/2024 6:38 AM EDT Hayder Graham MD POINT OF CARE TEST ORDERABLES Performing Organization Address [facility] Phone Number [facility] [place] [address] * Transesophageal Echo/OR (02/17/2024 6:33 AM EDT) [...] [facility]-operative [facility] of cardiac function [...] dose on Sat02/17/24 at 1400, Until Discontinued, [place] teeth and / or gums. Scan the CHG vial in the [employer] Q-Care Oral Care Kit from floor stock. Ventilator-associated pneumonia prophylaxis For use in ICU/Critical care locations ONLY. Obtain kit from Floor Stock location. Scan CHG vial in the [employer] Q-Care Oral Care Kit, Routine Given 02/17/2024 [...] restart at 50% of previous rate. Call boiler house mechanic if goal not achieved at maximum rate. [...] PHENYLephrine and/or vasopressin ineffective. Call pager # [phone] if initiated. Titrate to keep systolic blood [...] 2.0 L/min/M2. Maximum volume 2 L. Call boiler house mechanic for additional fluid orders: pager #[phone]. Rate/Dose Verify 02/18/2024 8:00 AM EDT 1 mL/hr 1 mL/hr Rate/Dose Verify 02/18/2024 6:00 AM EDT 1 mL/hr 1 mL/hr Rate/Dose Verify 02/18/2024 4:00 AM EDT 1 mL/hr 1 mL/hr sodium chloride 0.9% infusion 10-30 mL/hr, Intravenous, DAILY PRN, Starting on Sat02/17/24 at 1307, Until Sat02/18/24 at 0835, Side port TKO rate, per [facility] nursing protocol. Rate/Dose Verify 02/17/2024 8:00 PM EDT 30 mL/hr 30 mL/hr Rate/Dose Verify 02/17/2024 6:00 PM EDT 30 mL/hr 30 mL/h r Rate/Dose Verify 02/17/2024 5:00 PM EDT 30 mL/hr 30 mL/h r sodium chloride 0.9% infusion 10-30 mL/hr, Intravenous, DAILY PRN, Starting on Sat02/17/24 at 1307, Until Sat02/18/24 at 0835, Side port TKO rate, per [facility] nrusing protocol. Rate/Dose Verify 02/18/2024 [...] 09 (Given - Provider: Mishel Merrill, COLBY) 0836 [...] Menjivar RN)1201 (Stopped - Provider: Reilly Vincent, COLYB) senna-docusate (Pericolace) 8.6-50 mg per tablet 2 [...] Britton RN)0930 (Given - Provider: Reilly N Pfeifer, RN)1708 (Given - Provider: Ingrid Menjivar RN) [...] Routine documented in this encounter Care Teams Delivery Manager Relationship Specialty Start Date End Date Aparna Jordan, MAURI PCP - General Family Medicine 10/21/23 05/26/24 documented as of this encounter
--- OUTSIDE RECORDS SUMMARY | 2024-07-09 10:08 | XMS_ITS | Encounter Summary ---
Author Organization [facility] [place] [address] Care Team Providers Care Viscosity Tester Name Role Phone Vanessa Christian APRN Primary Care Provider [phone] Encounter Details Date Type Department Care Team (Late st Contact Info) Description 12/26/2023 Notes Only Cardiology at [address] [address] Neftali Ernandez MD [facility] [place] [address] Social History Tobacco Use Types Packs/Day Years [...] EDT Echocardiogram images reviewed from [facility]. Indeed, the aortic valve appears severely stenotic. Cannotrule out bicuspid valve documented in this encounter Plan of Treatment Upcoming Encounters Date Type Department Care Team (Late st Contact Info) Description 11/30/2024 3:00 PM EST Office Visit Cardiology at [address] [address] Neftali Ernandez MD [facility] [place] [address] documented as of this encounter Visit Diagnoses Not on filedocumented in this encounter Care Teams Viscosity Tester Relationship Specialty Start Date End Date Vanessa Christian APRN PCP - General Family Medicine 10/21/23 05/26/24 documented as of this encounter
--- OUTSIDE RECORDS SUMMARY | 2024-07-09 10:08 | XMS_ITS | Encounter Summary ---
Author Organization [facility] Address [facility] [place] [address] Care Team Providers Care Setter Up Name Role Phone Vanessa Christian SERVICE CAR DRIVER Primary Care Provider [phone] Reason for Referral * Diagnostic Test (Routine) - Closed Specialty Diagnoses / Procedures Referred By Contac t Referred To Contact Radiology Diagnoses Nonrheumatic aortic valve stenosis Procedures CT Chest wo Contrast (Generic) Louisa Reid PA [facility] [place] [address] [facility] [place] [address] Referral ID Status Reason Start Date Expiration Date V isits Requested Visits Authorized [id number] Closed Specialty Service Requested 01/10/2024 07/11/2025 1 1 Encounter Details Date Type Department Care Team (Late st Contact Info) Description 01/09/2024 Orders [place] [address] Zak Farmer MD [facility] [place] [address] Nonrheumatic aortic valve stenosis Social History Tobacco [...] PM EST Office Visit Cardiology at [address] [place] [address] Neftali Ernandez MD [facility] [place] [address] documented as of this encounter Results * CT Chest wo Contrast (Generic) (02/03/2024 7:44 AM EDT) WORKSTATION ID [id number] RAD Anatomical Region Laterality Modality Chest Computed [...] who have questions please contact the health ostomy care nurse that requested your imaging first. [...] nodule along the minor fissure (series 302 [id number]) and a 8 mm right lower lobe [...] patients who have questions please contactthe health ostomy care nurse that requested your imaging first. Zak Farmer MD IMG CT ORDERABLES documented in this encounter Visit Diagnoses Diagnosis Nonrheumatic aortic valve stenosis Aortic valve disorders Nonrheumatic aortic valve stenosis Aortic valve disorders documented in this encounter Care Teams Setter Up Relationship Specialty Start Date End Date Vanessa Christian APRN PCP - General Family Medicine 10/21/23 05/26/24 documented as of this encounter
--- OUTSIDE RECORDS SUMMARY | 2024-07-09 10:08 | XMS_ITS | Encounter Summary ---
Author Organization [facility] Address [facility] [place] [address] Care Team Providers Care Net Developer Programmer Name Role Phone Vanessa Christian MAURI Primary Care Provider [phone] Reason for Visit * Consultation (Routine) - Closed Specialty Diagnoses / Procedures Referred By Contac t Referred To Contact Cardiac Surgery Diagnoses Nonrheumatic aortic valve stenosis significant - TAVR ( defers to Card Surg d/t age) Neftali Ernandez MD [facility] [place] [address] Zak Farmer MD [facility] [place] [address] Referral ID Status Reason Start Date Expiration Date V isits Requested Visits Authorized [id number] Closed Consult, Test & Treat 10/21/2023 10/20/2024 1 1 Encounter Details Date Type Department Care Team (Late st Contact Info) Description 01/09/2024 1:40 PM EDT Office [place] [address] Zak Farmer MD [facility] [place] [address] Nonrheumatic aortic valve stenosis Social [...] office. Best personal regards, Zak Farmer MD [phone] In aggregate 55 minutes were spent evaluating [...] PM EST Office Visit Cardiology at [address] [place] [phone] Neftali Ernandez MD [facility] [place] [address] documented as of this encounter Results * [...] who have questions please contact the health transitions rn care coordinator that requested your imaging first. ? Electronically signed by: Toby Dave MD, [facility] ([phone]), at 01/09/2024 3:11 PM Narrative 01/09/2024 3:11 [...] patients who have questions please contactthe health transitions rn care coordinator that requested your imaging first. Electronically signed by: Toby Dave MD, [facility]([phone]), at 01/09/2024 3:11 PM Zak Farmer MD [...] S [facility] [place] [address] * Hepatic Function Panel (01/09/2024 2:58 PM [...] S Performing Organization Address [facility] Co de Phone Number [facility] [place] [address] * Prothrombin Time (01/09/2024 2:58 PM EDT) [facility] Prothrombin Time 10.6 9.4 - 12.5 [...] ES Performing Organization Address [facility]/ZIP Co de Phone Number [facility] [place] [address] * Type and Screen Future Surgery, [facility] [place] ONLY) (01/09/2024 [...] Number [facility] [place] [address] documented in this encounter Visit Diagnoses Diagnosis Nonrheumatic aortic valve stenosis Aortic valve disorders Nonrheumatic aortic valve stenosis Aortic valve disorders documented in this encounter Care Teams Net Developer Programmer Relationship Specialty Start Date End Date Vanessa Christian APRN PCP - General Family Medicine 10/21/23 05/26/24 documented as of this encounter
--- OUTSIDE RECORDS SUMMARY | 2024-07-09 10:08 | XMS_ITS | Encounter Summary ---
Author Organization [facility] [place] [address] Care Team Providers Care Extrusion Operator Name Role Phone Vanessa Christian APRN Primary Care Provider [phone] Encounter Details Date Type Department Care Team [...] PM EST Office Visit Cardiology at [address] [place] [phone] Neftali Ernandez MD [facility] [place] [address] documented as of this encounter Visit Diagnoses Not on filedocumented in this encounter Care Teams Extrusion Operator Relationship Specialty Start Date End Date Vanessa Christian APRN PCP - General Family Medicine 10/21/23 05/26/24 documented as of this encounter
--- OUTSIDE RECORDS SUMMARY | 2024-07-09 10:08 | XMS_ITS | Encounter Summary ---
Author Organization [facility] [place] [address] Care Team Providers Care Sales Development Manager Name Role Phone Vanessa Christian MAURI Primary Care Provider [phone] Reason for Visit * Auth/Cert (Routine) Specialty [...] MD [facility] [place] [address] [facility] Referral ID Status Reason Start Date Expiration Date Visits Re quested Visits Authorized [id number] 1 1 Encounter Details Date Type Department Care Team (Latest Contact Info) Description 02/03/2024 8:06 AM EDT - 02/03/2024 2:54 PM EDT Hospital Encounter [place] [address] Rima Dickinson MD [facility] [place] [address] Screening for cardiovascular condition; Aortic valve stenosis, [...] lbs Follow-up Visits Follow up with your crew leader in 2-4 weeks Access Site 'Black and Blue' and tenderness is expected during the first week Call if you noted a mass (lump) greater than the size of a ellis Call Office with any Questions and if you have any of the following Clarence Lane M.D Interventional Avp Helicopter Pilot #: [phone] * Attachments The following attachments cannot be sent through Care Everywhere. * CAD (Coronary Artery Disease): General Info (Mongolian) * Coronary Angiogram: Post-op (Mongolian) documented in this encounter Medications at Time [...] Pre-Procedure H&P Update: Cardiac Catheterization Karlos Anthony [id number] 1960 Chief Complaint: Aortic stenosis HPI: Mr. [...] is inthe chart Clarence Lane MD Interventional Avp 02/03/24 11:48 AM documented in this encounter Miscellaneous Notes * Brief Op Note - Clarence Lane MD - 02/03/2024 12:51 PM EDT Preliminary Cardiac Catheterization Procedure Note: Patient Name: Karlos nAthony : [id number] MR#: [id number] Case Date: 02/03/2024 Helicopter Pilot: Surgeon(s) and Role: * Saira Lua MD [...] PM EST Office Visit Cardiology at [address] [address] Neftali Ernandez MD [facility] [place] [address] Scheduled Orders Name Type Priority Associated Diagnoses [...] ? Procedure Date: 02/03/2024 ? A #: [id number] ? Primary Physician: Saira Lua ? Case #: [id number] ? File Name: [id number] ? Catheterization Order Number: [id number] ? [facility] ? Final Report [place], [place] ? Patient Name: ? Karlos Patenaude ? ID#: ?[id number] ? : ?1960 ? Procedure Date: ? [...] Karlos Anthony Procedure Date: 02/03/2024 A #: [id number] Primary Physician: Saira Lua Case #: [id number] File Name: [id number] Catheterization Order Number: [id number] [facility] FinalReport [place], [place] Patient Name: Karlos Anthony ID#:[id number] :1960 Procedure Date: February 03, 2024 Case [...] (Bezet) 372 ms MUSE SYSTEM Calculated P Elsie 59 degrees MUSE SYSTEM Calculated R Elsie 34 degrees MUSE SYSTEM Calculated T Elsie 63 degrees MUSE SYSTEM INTERPRETATION Sinus bradycardia [...] MD) documented in this encounter Care Teams Sales Development Manager Relationship Specialty Start Date End Date Vanessa Christian APRN PCP - General Family Medicine 10/21/23 05/26/24 documented as of this encounter
--- OUTSIDE RECORDS SUMMARY | 2024-07-09 10:08 | XMS_ITS | Encounter Summary ---
[place] [address] Care Team Providers Care Ramp Service Man Name Role Phone Victor M Lafleur MD Primary Care Provider [phone] Reason for Visit * Reason Onset Date Comments Referral 09/20/2023 Encounter Details Date Type Department Care Team (Late st Contact Info) Description 09/20/2023 Telephone Cardiology at [address] [address] Karen Billy, operations vocational instructor Social History Tobacco Use Types Packs/Day Years [...] PM EST Office Visit Cardiology at [address] [place] [address] Neftali Ernandez MD [facility] [place] [address] documented as of this encounter Visit Diagnoses Not on filedocumented in this encounter Care Teams Ramp Service Man Relationship Specialty Start Date End Date Victor M Lafleur MD PCP - General 10/02/13 10/20/23 documented as of this encounter
--- OUTSIDE RECORDS SUMMARY | 2024-07-09 10:08 | XMS_ITS | Encounter Summary ---
Author Organization [facility] Address [facility] [place] [address] Care Team Providers Care Group Therapist Name Role Phone Vanessa Christian MAURI Primary Care Provider [phone] Encounter Details Date Type Department Care Team (Latest Contact Info) Description 01/09/2024 3:02 PM EDT - 01/09/2024 11:59 PM EDT Hospital Encounter XRay at [address] [place] [address] [facility] [place] [address] Nonrheumatic aortic valve stenosis Discharge Disposition: Home [...] PM EST Office Visit Cardiology at [address] [place] [address] [facility] [place] [address] documented as of this encounter Procedures Procedure [...] have questions please contact the health healthcare facility administrator that requested your imaging first. ? Electronically signed by: Toby Dave MD, [facility] ([phone]), at 01/09/2024 3:11 PM Narrative 01/09/2024 3:11 [...] who have questions please contactthe health healthcare facility administrator that requested your imaging first. Electronically signed by: Toby Dave MD, [facility]([phone]), at 01/09/2024 3:11 PM Zak Farmer MD IMG DX ORDERABLES documented in this encounter Visit Diagnoses Diagnosis Nonrheumatic aortic valve stenosis Aortic valve disorders documented in this encounter Care Teams Group Therapist Relationship Specialty Start Date End Date Vanessa Christian APRN PCP - General Family Medicine 10/21/23 05/26/24 documented as of this encounter
--- OUTSIDE RECORDS SUMMARY | 2024-07-09 10:08 | XMS_ITS | Encounter Summary ---
Author Organization [facility] [place] [address] Care Team Providers Care Industrial Automation Engineer Name Role Phone Vanessa Christian Lane DOTSON Primary Care Provider [phone] Encounter Details Date Type Department Care Team (Late st Contact Info) Description 01/09/2024 2:30 PM EDT Clinical Support Same Day at [facility] [place] [phone] Social History Tobacco Use Types Packs/Day Years [...] tube link for a video about [facility] cardiac surgery. Instructed [...] PM EST Office Visit Cardiology at [address] [place] [address] Neftali Ernandez MD [facility] [place] [address] documented as of this encounter Visit Diagnoses Not on filedocumented in this encounter Care Teams Industrial Automation Engineer Relationship Specialty Start Date End Date Vanessa Christian APRN PCP - General Family Medicine 10/21/23 05/26/24 documented as of this encounter
--- OUTSIDE RECORDS SUMMARY | 2024-07-09 10:08 | XMS_ITS | Encounter Summary ---
Author Organization [facility] [place] [address] Care Team Providers Care Armored Cable Machine Operator Name Role Phone Vanessa Christian APRN Primary Care Provider [phone] Encounter Details Date Type Department Care Team (Late st Contact Info) Description 10/21/2023 Abstract Cardiology at [address] [phone] Adam Mayes RN Social History Tobacco Use [...] PM EST Office Visit Cardiology at [address] [phone] Neftali Ernandez MD [facility] [place] [address] documented as of this encounter Visit Diagnoses Not on filedocumented in this encounter Care Teams Armored Cable Machine Operator Relationship Specialty Start Date End Date Vanessa Christian APRN PCP - General Family Medicine 10/21/23 05/26/24 documented as of this encounter
--- OUTSIDE RECORDS SUMMARY | 2024-07-09 10:08 | XMS_ITS | Encounter Summary ---
Author Organization [facility] [place] [address] Care Team Providers Care Early Intervention Specialist Name Role Phone Vanessa Christian MAURI Primary Care Provider [phone] Encounter Details Date Type Department Care Team (Late st Contact Info) Description 01/10/2024 Orders [place] [phone] Lawson Napoles PA [facility] [place] [address] Screening for cardiovascular condition; Aortic valve stenosis, [...] PM EST Office Visit Cardiology at [address] [place] [phone] Neftali Ernandez MD [facility] [place] [address] documented as of this encounter Visit Diagnoses Diagnosis Screening for cardiovascular condition Screening for other and unspecified cardiovascular conditions Aortic valve stenosis, etiology of cardiac valve disease unspecified documented in this encounter Care Teams Early Intervention Specialist Relationship Specialty Start Date End Date Vanessa Christian APRN PCP - General Family Medicine 10/21/23 05/26/24 documented as of this encounter
--- OUTSIDE RECORDS SUMMARY | 2024-07-09 10:08 | XMS_ITS | Data Portability ---
Author Organization [place] - [facility] Address [address] [place] [address] Care Team Providers Care Geographic Analyst Name Role Phone APARNA JORDAN Primary Care Provider SOFIA MCALLISTER Dentist Assessment No assessment recorded. Plan of Treatment Reminders Order Date Submit Date Provider Last Modified By Organization Details Last Modified Time Details Appointments None recorded . Lab magnesiu m, serum or plasma 024 12/18/19 [email or web address] [facility] (Registration ), [address] [place] [address] [place], [address], 4 14:25:25 BMP, serum or plasma 024 12/18/19 [email or web address] [facility] (Registration ), [address] [place] [address] [place], [address], 4 14:25:24 Referral None recorded . Procedures None recorded . Surgeries None recorded . Imaging None recorded . Medication Orders None recorded . Patient TargetsNo targets recorded. Patient Instructions Encounter Date Encounter Id Patient Instructions Last Modified By Organization Details Last Modified Time 09/19/2023 [id number] SCHEDULE FOLLOW UP IN 3 MONTHS IF YOU DONT HEAR FROM THE CARDIOLOGY DEPT THIS WEEK CALL [facility] STARTER MECHANIC AND LET THEM KNOW IF YOUR BREATHING GETS WORSE- GO TO THE ER, DONT OVER DO THINGS PHYSICALLY EXPECT A CALL FROM SARA ZAFAR RE: UPDATING YOUR POWER OF JAVA CONSULTANT (NEED 2 WITNESSED SIGNATURES) Not available 09/19/2023 09:25:07 12/18/2023 [id number] Karlos: expect a call from the STructural heart team at [facility] [place] drink at least 6 glasses of water a day. checking kidney function and magnesium labs today will mail home. follow up in 3 months for BPH, Aortic stenosis. 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 for Referral Hiv Cts Specialist Referral for Roland ateral hearing loss Referring Physician: Aparna Jordan, Family Medicine, Encounter Date: 02/26/2024 Results Created Date Observation Date Name Description Value Unit Range Abnormal Flag Note LastModifiedBy Organization Detail LastModifiedTime 12/18/19 24 12/18/2023 LASIC METAB OLIC PANEL calcium 9.3 mg/dL 8.5-10 .1 normal Not Available [address] [place], [address] 12/18/2023 17:09:55 12/18/19 24 12/18/2023 LASIC METAB OLIC PANEL glucose 90 mg/dL 74-106 normal Not Available Baljit montemayor [address] [place], [address] 12/18/2023 17:09:55 12/18/19 24 12/18/2023 LASIC METAB OLIC PANEL BUN 14 mg/dL 7-18 normal Not Available Baljit montemayor [address] [place], [address] 12/18/2023 17:09:55 12/18/19 24 12/18/2023 LASIC METAB OLIC PANEL creatinine 1.0 mg/dL 0.70-1 .30 normal Not Available [address] [place], [address] 12/18/2023 17:09:55 12/18/19 24 12/18/2023 LASIC METAB [...] young er-ag ed adult s. Not Available [address] [place], [address] 12/18/2023 17:09:55 12/18/19 24 12/18/2023 LASIC METAB OLIC PANEL sodium 139 mmol/ L 136-14 5 normal Not Available [address] [place], [address] 12/18/2023 17:09:55 12/18/19 24 12/18/2023 LASIC METAB OLIC PANEL potassium 4.9 mmol/ L 3.5-5. 1 normal Not Available [address] [place], [address] 12/18/2023 17:09:55 12/18/19 24 12/18/2023 LASIC METAB OLIC PANEL chloride 104 mmol/ L 98-107 normal Not Available [address] [place], [address] 12/18/2023 17:09:55 12/18/19 24 12/18/2023 LASIC METAB OLIC PANEL CO2 30.9 mmol/ L 21.0-3 2.0 normal Not Available [address] [place], [address] 12/18/2023 17:09:55 12/18/19 24 12/18/2023 LASIC METAB OLIC PANEL anion gap 4.1 mmol/ L 3-11 normal Not Available [address] [place], [address] 12/18/2023 17:09:55 12/18/19 24 12/18/2023 MAGNE SIUM magnesium 1.8 mg/dL 1.8-2. 4 normal Not Available [address] [place], [address] 12/18/2023 17:09:56 09/11/20 23 12/05/2022 trans -thor acic echoc ardio gram (TTE) (PROC ) No observ ation record ed. [email or web address] [facility] Xray [address] [place], [address], 09/13/2023 09:29:52 09/11/20 23 06/01/2022 XR, hip, unila teral No observ ation record ed. [email or web address] Not Available 2022 09:29:19 09/11/20 23 12/06/2019 US, echoc ardio gram No observ ation record ed. [email or web address] [facility]- Cardiology [address] [place], [address], 09/13/2023 09:28:49 Result Notes None recorded. Problems Name Problem SNOMED Code Status Onset Date Resolution Date Notes Provider Name and Address Organization Details Recorded Time Gastroes ophageal reflux disease without esophagi tis 050119788 Active 2022 Problem Code: K21.9; Problem Code Type: ICD-10; Not Available [facility] 4 05:35:57 Glaucoma 32188386 Active 2022 Problem Code: H40.9; Problem Code Type: ICD-10; Not Available [facility] 4 05:35:57 Hyperlip idemia 91418108 Active 2022 Problem Code: E78.5; Problem Code Type: ICD-10; Not Available [facility] 4 05:35:57 [facility] hyperten niels 73879840 Active 2022 Problem Code: I10; Problem Code Type: ICD-10; Not Available [facility] 4 05:35:57 Pain of left hip joint 67011604873 9100 Active 2022 Problem Code: M25.552; Problem Code Type: ICD-10; Not Available [facility] 4 05:35:57 Idiopath ic osteoart hritis 705124668 Active 2022 Problem Code: M16.12; Problem Code Type: ICD-10; Not Available [facility] 4 05:35:57 Inguinal hernia 383220358 Active 2022 Problem Code: K40.90; Problem Code Type: ICD-10; Not Available [facility] 4 05:35:57 Heart murmur 81633301 Active 2022 Problem Code: R01.1; Problem Code Type: ICD-10; Not Available [facility] 4 05:35:57 Dyspnea 440828037 Active 2022 Problem Code: R06.09; Problem Code Type: ICD-10; Not Available [facility] 4 05:35:57 Chest pain 65931403 Active 2022 Problem Code: R07.89; Problem Code Type: ICD-10; Not Available [facility] 4 05:35:57 Melanocy tic nevus 436883966 Active 2022 Problem Code: D22.9; Problem Code Type: ICD-10; Not Available [facility] 4 05:35:57 Aortic stenosis , non-rheu matic 656396293 Active 2022 Problem Code: I35.0; Problem Code Type: ICD-10; Not Available [facility] 4 05:35:58 Aortic stenosis , non-rheu matic 570950572 Completed 202208/14/2023 Problem Code: I35.0; Problem Code Type: ICD-10; Not Available [facility] 4 05:35:58 Indigest ion 433470683 Active 2023 GLORIA CAMP LPN null, [facility] 4 08:48:57 Coronary artery bypass grafts x 3 Active 2023 Kelly Duran RN null, [facility] 4 10:30:01 At increase d risk of atrial fibrilla tion 504331848 Active [address], [place], [address] , [facility] 4 13:52:01 Anemia 954513190 Active [address], [facility] [address] , [facility] 4 13:54:39 Problem Notes None recorded. Procedures Surgical History Date Name Laterality Status Provider Name and Address Organization Details Recorded Time coronary artery bypass graft completed Hudson Reeder [place] [facility] 03/04/2024 14:54:09 Imaging Results Imaging Date Name Status LastModified by Organization Details LastModified Time 12/05/2022 trans-thoracic echocardiogram (TTE) (PROC) completed [address] Xray [address] , [place], [address], 09/13/2023 09:29:52 06/01/2022 XR, hip, unilateral [place] [address] Information not available 09/13/2023 09:29:19 12/06/2019 US, echocardiogram completed [address]- Cardiology [address] [facility] , [place], [address], 09/13/2023 09:28:49 Procedure Notes None recorded. Medical [...] es. Take 1 hr prior. Started by [facility] [place] [place]. Not Available Not Available Not Available doxycycli [...] BY MOUTH DAILY 02/24 completed stopped by [facility] [place] [place] Not Available Not Available Not Available brimonidi [...] hours by oral route as needed. active [facility] [place] [place] Not Available Not Available No t Available Aspirin Childrens 81 mg chewable tablet Take 1 tablet by mouth once a day active Not Available Not Available No t Available lisinopri l 5 mg tablet TAKE 1 TABLET BY MOUTH EVERY DAY 02/24 completed stopped by [facility] [place] [place] Not Available Not Available Not Available mupirocin [...] day by oral route. active started by [facility] [place] [place] Not Available Not Available Not Available dorzolami de 2 % (PF) eye drops 1 drop both eyes bid 12/17 completed Not Available Not Available Not Available Vitals Date Recorded Body weight Body mass index (BMI) Body height Heart rate Systolic blood pressure Diastolic blood pressure Provider Name and Address Organization Details Last Updated DateTime 3 11015.7 8 g 23.7 kg/m2 167.64 cm 64 /min 110 mm[Hg] 60 mm[Hg] GLORIA CAMP LPN [facility], [facility] 3 08:48:49 Date Recorded Body height Body mass index (BMI) Body weight Heart rate Systolic blood pressure Diastolic blood pressure Provider Name and Address Organization Details Last Updated DateTime 4 167.64 cm 24.6 kg/m2 03642.4 4 g 60 /min 112 mm[Hg] 80 mm[Hg] GLORIA CAMP LPN [facility] 4 08:38:13 Date Recorded Body height Body mass index (BMI) Body weight Heart rate Oxygen saturation Oxygen saturation in Arterial blood by Pulse oximetry Systolic blood pressure Diastolic blood pressure Provider Name and Address Organization Details Last Updated DateTime 4 167.64 cm 22.6 kg/m2 22713.6 5 g 63 /min 99 % 99 % 102 mm[Hg] 54 mm[Hg] Hudson Reeder MA [facility] 4 10:27:28 Social History Question Answer Notes LastModified by Organizat ion Details LastModified Time Tobacco Smoking Status Former Smoker Hudson Reeder MA [facility], [facility] 03/06/2024 10:24:50 Do You Have An Advance Directive? Yes Registered 08/15/23 Updated 01/12/24 Information not available 01/15/2024 When Did You Quit Smoking? 11-15years sincelastc igarette [email or web address] Information not available 03/06/2024 Do You Have A Medical Power Of Automatic Nailing Machine Operator? Yes Received 08/30/23, Scanned. Copies Sent To [facility] And Patient 09/02/23. Information not available 09/02/2023 What Was The Date Of Your Most Recent Tobacco Screening? 03/06/2024 [email or web address] Information not available 03/06/2024 What Is Your Current Pack Years? 30ormorepa ckyears [email or web address] Information not available 03/06/2024 How Much Tobacco Do You Smoke? 1 PPD [email or web address] Information not available 03/06/2024 How Many Years Have You Smoked Tobacco? 40 [email or web address] Information not available 03/06/2024 Do You Or Have You Ever Used Any Other Forms Of Tobacco Or Nicotine? No [email or web address] Information not available 03/06/2024 Sex: Male Functional [...] Time Tdap 08/26/2013 completed Not Available [facility] 05:30:17 Td(adult) unspecified formulation 11/21/2022 completed Not Available [facility] 10/18/2023 05:30:17 COVID-19, mRNA, LNP-S, PF, 100 mcg/0.5mL dose or 50 mcg/0.25mL dose 01/24/2021 completed Not Available [facility] 10/18/19 05:30:18 COVID-19, mRNA, LNP-S, PF, 100 mcg/0.5mL dose or 50 mcg/0.25mL dose 02/21/2021 completed Not Available [facility] 10/18/19 05:30:18 COVID-19, mRNA, LNP-S, PF, 100 mcg/0.5mL dose or 50 mcg/0.25mL dose 09/11/2021 completed Not Available [facility] 10/18/19 05:30:18 influenza, unspecified formulation 07/26/2021 completed Not Available [facility] 10/18/2023 05:30:18 influenza, unspecified formulation 07/26/2022 completed Not Available [facility] 10/18/2023 05:30:18 influenza, unspecified formulation 07/28/2020 completed Not Available [facility] 10/18/2023 05:30:18 influenza, unspecified formulation 08/05/2019 completed Not Available [facility] 10/18/2023 05:30:18 influenza, unspecified formulation 08/12/2018 completed Not Available [facility] 10/18/2023 05:30:18 Past Encounters Encounter ID Performer Location Encounter Start Date Encounter Closed Date Diagnosis/Indication Diagnosis SNOMED-CT Code Diagnosis ICD10 Code [id number] [address] [address] 09/19/2023 08:39:51 09/19/2023 09:17:42 Aortic valve stenosis 12956571 I35.0 Essential hypertension 46628833 I10 [id number] [address] [address] 12/18/2023 08:23:47 12/18/2023 09:29:09 Aortic stenosis, non-rheumatic 653057956 I35.0 Essential hypertension 09769504 I10 Nonulcer dyspepsia 22978 07 K30 Cramp in lower leg 44119 8009 R25.2 [id number] TATYANA LEDEZMA MD [address] [address] 03/06/2024 10:15:07 03/06/2024 11:14:28 Postoperative visit 442958908 Z48.89 Aortic rosa m nosis, non-rheumatic 536439374 I35.0 Stented co ronary artery 127805685 Z95.5 At [facility] risk of atrial fibrillation 934083312 Z91.89 Anemia 760379572 D64.9 Health Concerns Section Related Observation LastModified by Organization Detai ls LastModified Time None Recorded Concern Status LastModified by Organization Details LastModified Time None Recorded Advance Directives Directive Y: Registered 08/15/23Updated 01/12/24 Payers Encounter Date Sequence Insurance Name Policy Number Policy Alicia Covered Member ID Alicia Member ID Guarantor Name 12/18/2023 1 [employer] [id number] Karlos C Patenaude [id number] Karlos C Patenaude 03/06/2024 1 UMR [id number] Karlos C Patenaude [id number] Karlos C Patenaude Notes Date Note Type Note Provider Name and Address Organization Details Recorded Time 09/19/2023 text/html HPI Notes: 63-year-old man here for follow-up hypertension, severe aortic stenosis., He works full-time at [employer]. He lives at home with his dog. He has not heard from [facility] cardiology? referred mid-August. He did decrease his lisinopril to 5 mg, home SBPs running 110- 138, no change in slight lightheadedness with change position. He does continue to get dyspnea on exertion, denies chest pain, resolves fairly quickly no peripheral edema. 12/05/2022 [facility] transthoracic echocardiogram; there is moderate to severe aortic stenosis with disparate indicators. The calculated valve area is 0.8 cm2 is consistent with severe stenosis. Planimetry confirms valve area to 0.9 cm2. The mean gradient of 28 mmHg and peak velocity of 3.6M/S are consistent with moderate stenosis. There is trivial to mild aortic insufficiency. Aparna lizarraga [place] [facility]. 09/19/2023 13:31:38 12/18/2023 text/html HPI Notes: 63-year-old man here for follow-up hypertension, severe aortic stenosis., He works full-time at [employer]. He lives at home with his dog. 12/05/2022 [facility] transthoracic echocardiogram; there is moderate to [...] daytime and Ovaltine in his coffee. Aparna lizarraga, [place] [facility]. 12/18/2023 11:43:00 03/06/2024 text/html HPI Notes: Ana Paula marlow is here today for a postop evaluation TATYANA LEDEZMA MD [address] [place], [place], [address], [facility] - [facility]. 03/08/2024 13:57:34
--- OUTSIDE RECORDS SUMMARY | 2024-07-09 10:08 | XMS_ITS | Encounter Summary ---
Author Organization [facility] [place] [address] Care Team Providers Care Substation Operator Automatic Name Role Phone Vanessa Christian MAURI Primary Care Provider Encounter Details Date Type Department Care Team (Latest Contact Info) Description 01/09/2024 3:00 PM EDT Laboratory [place] [phone] Nonrheumatic aortic valve stenosis Social History Tobacco [...] PM EST Office Visit Cardiology at [address] [phone] Neftali Ernandez MD [facility] [address] [place] [address] documented as of this encounter Procedures Procedure Name Priority Date/Time Associated Diagnosis Comments ABORH RECHECK STATUS Routine 01/09/2024 2:58 PM EDT HEMOGRAM Routine 01/09/2024 2:58 PM EDT Nonrheumatic aortic valve stenosis DIFFERENTIAL, AUTOMATED Routine 01/09/2024 2:58 PM EDT Nonrheumatic aortic valve stenosis TYPE AND SCREEN, SDP (FUTURE SURGERY, [facility] SAME DAY PROGRAM ONLY) Routine 01/09/2024 2:58 [...] LAB CECILIO ALEMAN [facility] [place] [address] * Differential, Automated (01/09/2024 2:58 PM EDT) Neutrophil % 70.5 % [facility] Neutrophil Absolute 4.34 1.70 - 6.10 x10(3)/[facility] LABORATORY Lymph % 18.9 % [facility] Lymphocytes Abs 1.2 0.9 - 3.2 x10(3)/[facility] LABORATORY Monocyte % 8.0 % [facility] Monocyte Abs 0.5 0.3 - 0.9 x10(3)/[facility] LABORATORY Eos % 1.6 % [facility] Eosinophils Abs 0.1 0.0 - 0.4 x10(3)/[facility] LABORATORY Basophil % 0.5 % [facility] Baso Absolute 0.0 0.0 - 0.1 x10(3)/[facility] LABORATORY Immature Gran % 0.50 % [facility] Comment: Immature granulocytes(IG's)percentage and absolute count will include metamyelocytes, myelocytes, and promyelocytes. Blood smears from CBCs yielding IG's will be scanned manually for concordance. If this scan disagrees with the automated IG or if promyelocytes are noted, a manual differential will be performed. Immature Gran Absolute 0.03 0.00 - 0.04 x10(3)/[facility] LABORATORY Blood 01/09/2024 2:58 PM EDT 01/09/2024 3:03 PM EDT Narrative Resulting Agency Comment Spec In Lab Zak Farmer MD HEMATOLOGY ORDERABL ES [facility] [place] [address] * Hemogram (01/09/2024 2:58 PM EDT) White Blood Cell 6.2 4.0 - 9.5 x10(3)/[facility] LABORATORY Red Blood Cell 5.53 4.58 - 5.54 x10(6)/[facility] LABORATORY Hemoglobin 16.1 13.7 - [...] HOSPITAL LABORATORY Platelet 187 145 - 357 x10(3)/[facility] LABORATORY RDW Standard Deviation 39.2 36.0 - 45.0 fL [facility] RDW coefficient of variation 12.6 11.4 - 13.8 % [facility] Mean Platelet Volume 9.5 7.6 - 12.9 fL [facility] NRBC% auto 0.0 % [facility] NRBC Absolute 0.000 0.000 - 0.000 x10(3)/[facility] LABORATORY Blood 01/09/2024 2:58 PM EDT 01/09/2024 3:03 PM EDT Narrative Resulting Agency Comment Spec In Lab Zak Farmer MD HEMATOLOGY ORDERABL ES [facility] [place] [address] * Basic Metabolic Panel (non-fasting) (01/09/2024 2:58 [...] CHEMISTRY ORDERABLE S [facility] [place] [address] * Hepatic Function Panel (01/09/2024 2:58 PM [...] Address [facility] Co de Phone Number [facility] [place] [address] * Prothrombin Time (01/09/2024 2:58 PM EDT) [...] ORDERABL ES Performing Organization Address [facility] Co de Phone Number [facility] [place] [address] * Type and Screen Future Surgery, [facility] SAME DAY PROGRAM ONLY) (01/09/2024 2:58 PM [...] BANK LAB ORDE RABLES Performing Organization Address City/[facility]/[place] [address] documented in this encounter Visit Diagnoses Diagnosis Nonrheumatic aortic valve stenosis Aortic valve disorders documented in this encounter Care Teams Substation Operator Automatic Relationship Specialty Start Date End Date Vanessa Christian APRN PCP - General Family Medicine 10/21/23 05/26/24 documented as of this encounter
--- OUTSIDE RECORDS SUMMARY | 2024-07-09 10:08 | XMS_ITS | Encounter Summary ---
Author Organization [facility] [place] [address] Care Team Providers Care Offensive Coordinator Name Role Phone Victor M Lafleur MD Primary Care Provider [phone] Encounter Details Date Type Department Care Team (Late st Contact Info) Description 09/26/2023 Abstract Cardiology at [address] [address] Karen Billy, RN Nonrheumatic aortic [...] PM EST Office Visit Cardiology at [address] [place] [address] Neftali Ernandez MD [facility] [place] [address] documented as of this encounter Visit Diagnoses Diagnosis Nonrheumatic aortic valve stenosis Aortic valve disorders Nevus of face Benign neoplasm of skin of other and unspecified parts of face documented in this encounter Care Teams Offensive Coordinator Relationship Specialty Start Date End Date Victor M Lafleur MD PCP - General 10/02/13 10/20/23 documented as of this encounter
--- OUTSIDE RECORDS SUMMARY | 2024-07-09 10:08 | XMS_ITS | Encounter Summary ---
Author Organization [facility] [place] [address] Care Team Providers Care Furniture Assembler Name Role Phone Vanessa Christian APRN Primary Care Provider [phone] Encounter Details Date Type Department Care Team [...] PM EST Office Visit Cardiology at [address] [place] [phone] Neftali Ernandez MD [facility] [place] [address] documented as of this encounter Visit Diagnoses Not on filedocumented in this encounter Care Teams Furniture Assembler Relationship Specialty Start Date End Date Vanessa Christian APRN PCP - General Family Medicine 10/21/23 05/26/24 documented as of this encounter
--- OUTSIDE RECORDS SUMMARY | 2024-07-09 10:08 | XMS_ITS | Encounter Summary ---
Author Organization [facility] Address [facility] Ivana linareseileen [place] [id number] Care Team Providers Care Audit Partner Name Role Phone aVnessa Christian MAURI Primary Care Provider [phone] Reason for Referral * Consultation (Routine) - Closed Specialty Diagnoses / Procedures Referred By Contac t Referred To Contact Cardiac Surgery Diagnoses Nonrheumatic aortic valve stenosis significant - TAVR ( defers to Card Surg d/t age) Errol Loya MD [facility] [place] [address] Zak Farmer MD [facility] [place] [address] Referral ID Status Reason Start Date Expiration Date V isits Requested Visits Authorized [id number] Closed Consult, Test & Treat 10/21/2023 10/20/2024 1 1 Reason for Visit * Reason Comments Chest Pain Shortness of Breath Aortic Stenosis Encounter Details Date Type Department Care Team (Late st Contact Info) Description 10/21/2023 1:20 PM EST Office Visit Cardiology at [address] [address] Errol Loya MD [facility] [place] [address] Nonrheumatic aortic valve stenosis Social History Tobacco [...] Problem List Diagnosis Aortic stenosis 12/2022 [facility] VITA 0.8-0.9 cm2 (MG 28 mmHg, DOI 3.6 m/s, SVI 35 cc/m2). Trace regurgitation. Normal bi-v s/f, no other valve findings Gastroesophageal reflux Nevus of face Right cheondoism Hypertension HLD (hyperlipidemia) MEDICATIONS: Current Outpatient Medications [...] meantime will refer to T at [facility] for further evaluation. Logistics and preliminary review of TONY were reviewed with patient. - Refer to T RTC pending TONY evaluation (or review of echocardiogram) Errol Loya MD Between 60-74 minutes were spent doing patient care, chart care/review (today), and care coordination. documented in this encounter Miscellaneous Notes * Assessment & Plan Note - Errol Lyoa MD - 10/21/2023 3:47 PM EST Associated [...] meantime will refer to T at [facility] for further evaluation. Logistics and preliminary review of TONY were reviewed with patient. - Refer to T * Addendum Note - Errol Loya MD - 10/21/2023 1:20 PM ESTAddended by: REROL LOYA on: 10/21/2023 03:49 PM Modules accepted: Orders documented in this encounter Plan of Treatment Upcoming Encounters Date Type Department Care Team (Late st Contact Info) Description 11/30/2024 3:00 PM EST Office Visit Cardiology at [address] [place] [phone] Errol Loya MD [facility] [place] [address] Scheduled Referrals Name Type Priority Associated Diagnoses Order Schedule Amb Referral to Structural Heart Outpatient Referral Routine Nonrheumatic aortic valve stenosis Ordered: 10/21/2023 documented as of this encounter Visit Diagnoses Diagnosis Nonrheumatic aortic valve stenosis Aortic valve disorders documented in this encounter Care Teams Audit Partner Relationship Specialty Start Date End Date Vanessa Christian APRN PCP - General Family Medicine 10/21/23 05/26/24 documented as of this encounter
--- OUTSIDE RECORDS SUMMARY | 2024-07-09 10:08 | XMS_ITS | Encounter Summary ---
Author Organization [facility] [place] [address] Care Team Providers Care Immigration Coordinator Name Role Phone Vanessa Christian APRN Primary Care Provider [phone] Encounter Details Date Type Department Care Team (Late st Contact Info) Description 10/21/2023 Abstract Cardiology at [address] [place] [phone] Adam Mayes RN Social History Tobacco Use [...] PM EST Office Visit Cardiology at [address] [place] [address] Neftali Ernandez MD [facility] [place] [address] documented as of this encounter Visit Diagnoses Not on filedocumented in this encounter Care Teams Immigration Coordinator Relationship Specialty Start Date End Date Vanessa Christian APRN PCP - General Family Medicine 10/21/23 05/26/24 documented as of this encounter
--- OUTSIDE RECORDS SUMMARY | 2024-07-14 10:07 | XMS_ITS | Encounter Summary ---
Author Organization [facility] Address [facility] [place] [address] Care Team Providers Care Information Security Associate Name Role Phone Vanessa Christian MAURI Primary Care Provider [phone] Encounter Details Date Type Department Care Team (Latest Contact Info) Description 05/20/2024 Travel Social History Tobacco Use Types Packs/Day Years Used Date Smoking Tobacco: Former Cigarettes Smokeless Tobacco: Never Comments:Quit 15 + years ago Alcohol Use Standard Drinks/Week Comments Yes 0 (1 standard drink = 0.6 oz pur e alcohol) rare [facility] Utilities Answer Date Recorded In [...] Care Team (Late st Contact Info) Description 11/09/2024 3:40 PM EST Office Visit Cardiology at [address] [phone] Neftali Ernandez MD [facility] [place] [address] documented as of this encounter Visit Diagnoses Not on filedocumented in this encounter Care Teams Information Security Associate Relationship Specialty Start Date End Date Vanessa Christian APRN PCP - General Family Medicine 10/21/23 05/26/24 documented as of this encounter
--- OUTSIDE RECORDS SUMMARY | 2024-07-14 10:07 | XMS_ITS | Encounter Summary ---
Author Organization [facility] Address [facility] [place] [address] Care Team Providers Care Program Director Substance Abuse Name Role Phone Vanessa Christian MAURI Primary Care Provider [phone] Encounter Details Date Type Department Care Team (Latest Contact Info) Description 03/12/2024 1:30 PM EDT - 03/12/2024 11:59 PM EDT Hospital Encounter XRay at [address] [place] [address] Coronary artery disease, unspecified vessel or lesion type, unspecified whether angina present, unspecified whether chemehuevi or transplanted heart Discharge Disposition: Home Social History Tobacco Use Types Packs/Day Years Used Date Smoking Tobacco: Former Cigarettes Smokeless Tobacco: Never Comments:Quit 15 + years ago Alcohol Use Standard Drinks/Week Comments Yes 0 (1 standard drink = 0.6 oz pur e alcohol) rare [facility] Utilities Answer Date Recorded In the past 12 months has e [employer], gas, oil, or water [employer] threatened to shut off services in your [...] 3:40 PM EST Office Visit Cardiology at [address] [place] [address] Neftali Ernandez MD [facility] [place] [address] documented as of this encounter Procedures Procedure Name Priority Date/Time Associated Diagnosis Comments XR CHEST PA AND LATERAL Routine 03/12/2024 1:42 PM EDT Coronary artery disease, unspecified vessel or lesion type, unspecified whether angina present, unspecified whether chemehuevi or transplanted heart documented in this encounter Results * XR Chest PA & Lateral (Generic) (03/12/2024 1:42 PM EDT) WORKSTATION ID [id number] RAD Anatomical Region Laterality Modality Chest N/A [...] questions please contact the health personal care service provider that requested your imaging first. ? 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 Electronically signed by: Augie Sanchez MD, [facility]([phone]), at 03/13/2024 8:28 AM Zak Farmer MD IMG DX ORDERABLES documented in this encounter Visit Diagnoses Diagnosis Coronary artery disease, unspecified vessel or lesion type, unspecified whether angina present, unspecified whether chemehuevi or transplanted heart documented in this encounter Care Teams Program Director Substance Abuse Relationship Specialty Start Date End Date Vanessa Christian, MAURI PCP - General Family Medicine 10/21/23 05/26/24 documented as of this encounter
--- OUTSIDE RECORDS SUMMARY | 2024-07-14 10:07 | XMS_ITS | Encounter Summary ---
Author Organization [facility] Address [facility] [place] [address] Care Team Providers Care Ui Software Developer Name Role Phone Vanessa Christian [...] 3:40 PM EST Office Visit Cardiology at [address] [address] Neftali Ernandez MD [facility] [place] [address] documented as of this encounter Visit Diagnoses Not on filedocumented in this encounter Care Teams Ui Software Developer Relationship Specialty Start Date End Date Vanessa Christian APRN [address] [place] [address] PCP - General Family Medicine 05/27/24 documented as of this encounter
--- OUTSIDE RECORDS SUMMARY | 2024-07-14 10:07 | XMS_ITS | Encounter Summary ---
Author Organization [facility] Address [address] [place] [address] Care Team Providers Care Motorboat Mechanic Name Role Phone Vanessa Christian Lane MONCADA Primary Care Provider [phone] Encounter Details Date Type Department Care Team (Late st Contact Info) Description 10/24/2023 Lab Requisition [facility] - [address] [address] Oscar Nichole MD [address] [place] [id number] Factitial dermatitis Social History Tobacco Use Types [...] options, if applicable. 10/28/2023 11:24 EST [facility] Final Diagnosis A. SKIN OF ORTHODOX, LEFT, SHAVE BIOPSY: - Seborrheic keratosis, pigmented. 10/28/2023 11:24 EST [facility] Attestation By the signature below, the attending physician certifies that they have 1) personally conducted a gross and/or microscopic examination of the described specimen(s), and/or personally interpreted the results of laboratory testing of the described specimen(s), and 2) personally rendered or confirmed the above diagnosis. 10/28/2023 11:24 [facility] at [address] Microscopic Description The stratum corneum is thickened by compact and basketweave orthokeratosis with formation of horn pseudocysts. The epidermis is acanthotic with formation of broad and anastomosing trabeculae. The trabeculae are composed of basaloid keratinocytes with round uniform nuclei. The keratinocytes have a variable amount of melanin pigment. 10/28/2023 11:24 [facility] Clinical History Pigmented 2 cm patch; clinical diagnosis code: L98.1 10/28/2023 11:24 [facility] Gross Description A. Received in formalin labelled with proper patient identification (initials P, A) and left uatsdin is a shave biopsy of an irregular [...] A3. Nora Anderson 10/25/2023 8:47 10/28/2023 11:24 [facility] Performing Lab [facility] 10/28/2023 11:24 [facility] Scanned Images 10/28/2023 11:24 [facility] Tissue SPECIMEN FROM SKIN / Unknown 10/24/2023 14:30 EST 10/24/2023 22:04 EST Oscar Nichole MD PATHOLOGY ORDERABLES [facility] [address] [place] [address] documented in this encounter Visit Diagnoses Diagnosis Factitial dermatitis Dermatitis factitia (artefacta) documented in this encounter Care Teams Motorboat Mechanic Relationship Specialty Start Date End Date Vanessa Christian NP [address] [place] [address] PCP - General Family Medicine - Primary Care 10/07/23 documented as of this encounter
--- OUTSIDE RECORDS SUMMARY | 2024-07-14 10:07 | XMS_ITS | Encounter Summary ---
Author Organization [facility] Address [facility] [place] [address] Care Team Providers Care District Branch Manager Name Role Phone Vanessa Christian NURSE EDUCATOR Primary Care Provider [phone] Encounter Details Date Type Department Care Team (Late st Contact Info) Description 03/12/2024 2:40 PM EDT Office [place] [phone] Zak Farmer MD [facility] [place] [address] Coronary artery disease, unspecified vessel or lesion type, unspecified whether angina present, unspecified whether atqasuk or transplanted heart Social History Tobacco Use Types Packs/Day Years Used Date Smoking Tobacco: Former Cigarettes Smokeless Tobacco: Never Comments:Quit 15 + years ago Alcohol Use Standard Drinks/Week Comments Yes 0 (1 standard drink = 0.6 oz pur e alcohol) rare [facility] Utilities Answer Date Recorded In the past 12 months has e [employer], gas, oil, or water [employer] threatened to shut off services in your [...] 2:40 PM EDT To: MD Vanessa Coles, NURSE EDUCATOR Re; Karlso Santa ( 1960) We had an opportunity [...] office. Best personal regards, Zak Farmer MD [phone] documented in this encounter Plan of Treatment Upcoming Encounters Date Type Department Care Team (Late st Contact Info) Description 11/09/2024 3:40 PM EST Office Visit Cardiology at [address] [place] [address] Neftali Ernandez MD [facility] [place] [address] documented as of this encounter Procedures Procedure Name Priority Date/Time Associated Diagnosis Comments EKG 12-LEAD Routine 03/12/2024 2:35 PM EDT Coronary artery disease, unspecified vessel or lesion type, unspecified whether angina present, unspecified whether atqasuk or transplanted heart documented in this encounter Results * EKG 12 Lead (03/12/2024 2:35 PM EDT) Ventricular rate 59 BPM MUSE SYSTEM Atrial Rate 59 BPM MUSE SYSTEM P-R Interval 190 ms MUSE SYSTEM QRS Duration 92 ms MUSE SYSTEM Q-T Interval 406 ms MUSE SYSTEM QTC Calculated (Bezet) 401 ms MUSE SYSTEM Calculated P [place] -12 degrees MUSE SYSTEM Calculated R [place] 24 degrees MUSE SYSTEM Calculated T [place] 74 degrees MUSE SYSTEM INTERPRETATION Sinus bradycardia T wave abnormality, consider anterior ischemia Abnormal ECG When compared with ECG of 17-FEB-2024 13:24, [place] interval has decreased T wave inversion now evident in Anterior leads Confirmed by Paul Guzman ([id number]) on 03/15/2024 8:36:23 AM MUSE SYSTEM 03/12/2024 2:35 PM EDT 03/15/2024 8:36 AM EDT Zak Farmer MD ECG ORDERABLES MUSE SYSTEM documented in this encounter Visit Diagnoses Diagnosis Coronary artery disease, unspecified vessel or lesion type, unspecified whether angina present, unspecified whether atqasuk or transplanted heart documented in this encounter Care Teams District Branch Manager Relationship Specialty Start Date End Date Vanessa Christian APRN PCP - General Family Medicine 10/21/23 05/26/24 documented as of this encounter
--- OUTSIDE RECORDS SUMMARY | 2024-07-14 10:07 | XMS_ITS | Clinical Summary ---
Author Organization [facility] Address [facility] [place] [address] Care Team Providers Care Cotton Inspector Name Role Phone Vanessa Christian Lane DOTSON Primary Care Provider [phone] Allergies No known active allergies Medications Medication [...] the meantime will refer to SHT at [facility] for further evaluation. Logistics and preliminary review of TONY were reviewed with patient. - Refer to SHT Hypertension 08/14/2023 Resolved Problems Problem Noted Date Diagnosed Date Resolved Date Nevus of face 09/26/2023 05/27/2024 Overview (09/26/2023): Right latter day Chest pressure 08/14/2023 10/21/2023 SILVA (dyspnea on exertion) 08/14/2023 HLD (hyperlipidemia) 08/14/2023 024 Encounters Date Type Department Care Team Description 05/27/2024 11:00 AM EDT Office Visit Cardiology at [address] [place] [address] Neftali Ernandez MD ASCVD (arteriosclerotic cardiovascular disease); Nonrheumatic aortic valve stenosis 05/27/2024 Travel 05/20/2024 Travel from Last 3 Months Social History Tobacco Use Types Packs/Day Years Used Date Smoking Tobacco: Former Cigarettes Smokeless Tobacco: Never Comments:Quit 15 + years ago Alcohol Use Standard Drinks/Week Comments Yes 0 (1 standard drink = 0.6 oz pur e alcohol) rare [facility] Utilities Answer Date Recorded In [...] 3:40 PM EST Office Visit Cardiology at [address] [place] [address] Neftali Ernandez MD [facility] [place] [address] Health Maintenance Due Date Last [...] PCV) 2024 Medical Devices Implanted Type Area Cordwood Cutter Helper Device Identifier Shelf Expiration Date Model / Serial / Lot Cable,Cut,Edg ,Blnt,Ss,3tpr ([id number]) - [id number] Implanted:Qty : 1 on 02/17/2024 by Zak Farmer MD at [facility] IMPLANTS Midline: Chest [employer] - [id number] 09/02/2028 [id number] / / [id number] Valve Coronary Aortic 23mm Tissue Trnscath Biopros Inspiris ([id number]) (Autoreq) - [id number] Implanted:Qty : 1 on 02/17/2024 by Zak Farmer MD at [facility] IMPLANTS Heart [employer] - TSAI LI 09/15/2027 [id number] / [id number] / Procedures Procedure Name Priority Date/Time Associated [...] (Bezet) 367 ms MUSE SYSTEM Calculated P [place] 12 degrees MUSE SYSTEM Calculated R [place] 27 degrees MUSE SYSTEM Calculated T [place] 62 degrees MUSE SYSTEM INTERPRETATION Sinus bradycardia with 1st degree A-V block Otherwise normal ECG When compared with ECG of 12-MAR-2024 14:35, T wave inversion no longer evident in Anterior leads Confirmed by MD Ernandez Daniel ([id number]) on 06/01/2024 8:36:17 AM MUSE SYSTEM 05/27/2024 [...] Status decision made by: Patient Care Teams Cotton Inspector Relationship Specialty Start Date End Date Vanessa Christian, MAURI [address] [place] [address] PCP - General Family Medicine 05/27/24
--- OUTSIDE RECORDS SUMMARY | 2024-07-14 10:07 | XMS_ITS | Encounter Summary ---
Author Organization [facility] Address [facility] [place] [address] Care Team Providers Care Self Pay Collector Name Role Phone Vanessa Christian MAURI Primary Care Provider [phone] Encounter Details Date Type Department Care Team (Latest Contact Info) Description 03/12/2024 Travel Social History Tobacco Use Types Packs/Day Years Used Date Smoking Tobacco: Former Cigarettes Smokeless Tobacco: Never Comments:Quit 15 + years ago Alcohol Use Standard Drinks/Week Comments Yes 0 (1 standard drink = 0.6 oz pur e alcohol) rare [facility] Utilities Answer Date Recorded In [...] 3:40 PM EST Office Visit Cardiology at [address] [phone] Neftali Ernandez MD [facility] [place] [address] documented as of this encounter Visit Diagnoses Not on filedocumented in this encounter Care Teams Self Pay Collector Relationship Specialty Start Date End Date Vanessa Christian APRN PCP - General Family Medicine 10/21/23 05/26/24 documented as of this encounter
--- OUTSIDE RECORDS SUMMARY | 2024-07-14 10:07 | XMS_ITS | Encounter Summary ---
Author Organization [facility] Address [facility] [place] [address] Care Team Providers Care Fuse Assembler Name Role Phone Vanessa Christian Lane DOTSON Primary Care Provider [phone] Reason for Visit * Reason Comments Coronary Artery Disease Aortic Stenosis Encounter Details Date Type Department Care Team (Latest Contact Info) Description 05/27/2024 11:00 AM EDT Office Visit Cardiology at [address] [place] [phone] Neftali Ernandez MD [facility] [place] [address] ASCVD (arteriosclerotic cardiovascular disease); Nonrheumatic aortic valve stenosis Social History Tobacco Use Types Packs/Day Years Used Date Smoking Tobacco: Former Cigarettes Smokeless Tobacco: Never Comments:Quit 15 + years ago Alcohol Use Standard Drinks/Week Comments Yes 0 (1 standard drink = 0.6 oz pur e alcohol) rare [facility] Utilities Answer Date Recorded In the past 12 months has e [employer], gas, oil, or water [employer] threatened to shut off services in [...] 3:40 PM EST Office Visit Cardiology at [address] [address] Neftali Ernandez MD [facility] [place] [address] documented as of this encounter Visit Diagnoses Diagnosis ASCVD (arteriosclerotic cardiovascular disease) Unspecified cardiovascular disease Nonrheumatic aortic valve stenosis Aortic valve disorders documented in this encounter Care Teams Fuse Assembler Relationship Specialty Start Date End Date Vanessa Christian APRN [address] [place] [address] PCP - General Family Medicine 05/27/24 documented as of this encounter
--- OUTSIDE RECORDS SUMMARY | 2024-07-14 10:07 | XMS_ITS | Referral Summary ---
Author Organization [facility] Address [address] [place] [address] Care Team Providers Care Rocket Engine Mechanic Name Role Phone Filidayna Vanessa Sherman NP Primary Care Provider [phone] Social History Tobacco Use Types Packs/Day Years Used Date Smoking Tobacco: Never Assessed Sex and Gender Information Value Date Recorded Sex Assigned at Not on file Gender Identity Not on file Sexual Orientation Not on file Plan of Treatment Not on file Care Teams Rocket Engine Mechanic Relationship Specialty Start Date End Date Vanessa Christian NP [address] [place] [address] PCP - General Family Medicine - Primary Care 10/07/23
--- OUTSIDE RECORDS SUMMARY | 2024-07-14 10:07 | XMS_ITS | Encounter Summary ---
Author Organization [facility] Address [facility] [place] [address] Care Team Providers Care Inspector Aluminum Boat Name Role Phone Gino Vanessa Lane DOTSON Primary Care Provider [phone] Encounter Details Date Type Department Care Team (Late st Contact Info) Description 02/24/2024 Orders Only Cardiac Surgery [facility] [place] [phone] Trudi Lester APRN [facility] [place] [address] Social History Tobacco Use Types Packs/Day Years Used Date Smoking Tobacco: Former Cigarettes Smokeless Tobacco: Never Comments:Quit 15 + years ago Alcohol Use Standard Drinks/Week Comments Yes 0 (1 standard drink = 0.6 oz pur e alcohol) rare [facility] Utilities Answer Date Recorded In the past 12 months has e [employer], gas, oil, or water [employer] threatened to shut off services in [...] 3:40 PM EST Office Visit Cardiology at [address] [place] [address] Neftali Ernandez MD [facility] [place] [address] documented as of this encounter Visit Diagnoses Not on filedocumented in this encounter Care Teams Inspector Aluminum Boat Relationship Specialty Start Date End Date Vanessa Christian APRN PCP - General Family Medicine 10/21/23 05/26/24 documented as of this encounter
--- OUTSIDE RECORDS SUMMARY | 2024-07-14 10:07 | XMS_ITS | Clinical Summary ---
Author Organization [facility] Address [address] [place] [address] Care Team Providers Care Backup Operator Name Role Phone Vanessa Christian NP Primary Care Provider [phone] Social History Tobacco Use Types Packs/Day Years [...] COVID-19 Vaccine (2022- season) 2024 Care Teams Backup Operator Relationship Specialty Start Date End Date Vanessa Christian NP [address] [place] [phone] PCP - General Family Medicine - Primary Care 10/07/23
[2024-07-14 10:08] VITALS: BP 124/70; PULSE 57
--- OUTSIDE RECORDS SUMMARY | 2024-07-14 10:08 | XMS_ITS | Encounter Summary ---
[place] [address] Care Team Providers Care Inspector Eyeglass Frames Name Role Phone Aparna Jordan MAURI Primary Care Provider [phone] Reason for Referral * Diagnostic Test (Routine) - New Request Specialty Diagnoses / Procedures Referred By Contac t Referred To Contact Cardiology Diagnoses S/P AVR Procedures Echocardiogram Transthoracic Neftali Menon PA [facility] [place] [address] [facility] [place] [address] Referral ID Status Reason Start Date Expiration Date Visits Requested Visits Authorized [id number] New Request Specialty Service Requested 02/24/2024 02/23/2025 1 1 * Consultation (Routine) - Authorized Specialty Diagnoses / Procedures Referred By Contac t Referred To Contact Cardiology Diagnoses S/P AVR Hayder Graham MD [facility] [place] [address] Cardiac Rehab, [facility] [address] [place] [address] [place] [address] Referral ID Status Reason Start Date Expiration Date Visits Requested Visits Authorized [id number] Authorized Consult, Test & Treat 02/24/2024 08/22/2024 36 36 * Home Health Care (Routine) - Authorized Specialty Diagnoses / Procedures Referred By Sixto mendoza Referred To Contact Diagnoses S/P AVR Hayder Graham MD [facility] [place] [address] Referral ID Status Reason Start Date Expiration Date Visits Requested Visits Authorized [id number] Authorized Consult, Test & Treat 02/24/2024 08/22/2024 [...] ARTERIAL GRAFT (WRVU 7.93) Hayder Graham MD [facility] [place] [address] [facility] Referral ID Status Reason Start Date Expiration Date Visits Re quested Visits Authorized [id number] 1 1 Encounter Details Date Type Department Care Team (Latest Contact Info) Description 02/17/2024 5:43 AM EDT - 02/24/2024 11:23 AM EDT Hospital Encounter Heart and Vascular Unit Level 4 [place] [address] Hayder Graham MD [facility] [place] [address] S/P AVR (Primary Dx); Aortic valve stenosis, etiology of cardiac valve disease unspecified Discharge Disposition: Home with VNA Social History Tobacco Use Types Packs/Day Years Used Date Smoking Tobacco: Former Cigarettes Smokeless Tobacco: Never Comments:Quit 15 + years ago Alcohol Use Standard Drinks/Week Comments Yes 0 (1 standard drink = 0.6 oz pur e alcohol) rare [facility] Utilities Answer Date Recorded In [...] Patient Age: 63 y.o. Birthdate: 1960 Language: Belizean Race: White Ethnicity: Not nor Admit Date: 02/17/2024 Discharge Date: 02/24/24 Attending Physician: Hayder Graham MD Follow-up Recommendations for Providers: Please continue routine management of cardiovascular risk factors including blood pressure, lipids,glucose, etc. Please note any changes to medications. Patient to follow up with PCP, Aparna Jordan APRN, in 1-2 weeks. Patient to follow up with Nascar Pit Crew Person, Neftali Ernandez MD , in 2 weeks. Patient to follow up with Cardiac Surgeon, Dr. Hayder Graham, with a chest x-ray, EKG, and Echo. 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 He has glaucoma. He used to [employer] until about 15 years ago. He has undergone prior herniorrhaphy. 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 Major Procedures/Operations: 02/17/24 s/p avr/cabgx3 CABG x 3 JOSE->LAD SVG->dRCA SVG->OM1 EVH from LLE AVR with a 23 mm Inspiris Bioprosthesis Hospital Course: Karlos Garcia was admitted to [facility] on 02/17/2024 via the Same [...] Hayder Graham and/or the Cardiac Surgery Physician Public Health Administrator Team may be reached at . Antibiotic [...] Please refer to the card with the [place] Heart Association Guidelines for more information. You [...] Dr. Hayder Graham. You may use a [place] Track or treadmill but avoid any pulling [...] should resume a low fat, low cholesterol, [place] Heart Association Diet. Driving: No driving until [...] while being managed by your PCP and/or Nascar Pit Crew Person. For future medication refills, please refer to your PCP and/or Nascar Pit Crew Person after your discharge from our service. Thank you REMOVE CHEST TUBE SUTURES ON OR AFTER 03/02/24 Home oxygen therapy: N/A Follow up appointments: You should follow up with your PCP, Aparna Jordan APRN, in 1-2 weeks. Our office will schedule an appointment with your Nascar Pit Crew Person, Neftali Ernandez MD , in 2 weeks. You have an appointment with your Cardiac Surgeon, Dr. Hayder Graham, 4 weeks with a chest x-ray, EKG, and Echo before your appointment. Cardiac Rehabilitation: Karlos Garcia was seen regarding participation in the outpatient Phase 2Cardiac Rehabilitation at [facility]. The patient agrees to a referral to this program. The referral will be sent at discharge and the patient should be contacted by the Program within 1- 2 weeks from discharge. Future Appointments and Orders Future Orders Complete By Expires Echocardiogram Transthoracic [19963 CPT(R)] 03/26/2024 09/25/2024 Process Instructions: Scheduling Instructions: Questions: Where will study be performed?: [facility] Clinics Does the patient have Congenital Heart Disease?: Does patient require sedation?: Sedation rationale: XR Chest PA & Lateral (Generic) [98527 68732 Custom] 03/26/2024 09/25/2024 Process Instructions: Scheduling Instructions: Questions: Portable exam?: Reason for exam and clinical history: s/p avr/cabg Clinical information / jerome questions for radiologist: Stat read required?: Date of injury if applicable: Requested Time: Where will study be performed?: [facility] Radiology Referral to Cardiac Rehab [CSP162 Custom] As directed Process Instructions: If no progress note charted, please enter Clinical details in comments. Scheduling Instructions: Questions: My question or request is: s/p AVR/CABG. Cardiac rehab at [facility]. Referral to Home Health [REF34 Custom] As directed Process Instructions: If no progress note charted, please enter Clinical details in comments. Scheduling Instructions: Comments: Please evaluate Karlos Garcia for admission to Home Health. [address] Phone Number: Date of : 1960 Inpatient DOCUMENTATION FOR VNA SERVICES (INCLUDING THOSE PATIENTS WITH MEDICARE COVERAGE REQUIRING HOME VNA SERVICES AND/OR HOSPICE SERVICES) PATIENT'S LOCATION: Karlos Garcia [address] [place] [phone] Parish Visitor's Name: self/family In discussion with the attending physician, it is certified that this patient is under their care and that they, or a Nurse Practitioner, or Physician Public Health Administrator who is working directly with them, hada [...] for services as follows: HOME HEALTH AGENCY: [facility] [address] [place] [address] RN orders: Cardiopulmonary assessment, incisional assessment, assess [...] issues please call the Cardiology Office at [phone] FOR MEDICARE ONLY: (please delete this section [...] APRN [address] / [place] [address] . All VNA agencies which cover the area of patient's residence have been reviewed, either verbally or in writing, and patient/family have chosen the home health care agency noted. Questions: Disciplines Requested: Nursing Physical Therapy Arrangements for VNA/home care: As above. Signed: NEFTALI MENON PA-C [facility] Section of Cardiac Surgery [facility] [address] FAX [phone] Date: 02/24/2024 CC: Aparna Jordan, MAURI Jordan, Aparna Sherman APRN [address] [place] [address] documented in this encounter Discharge Instructions * [...] Hayder Graham and/or the Cardiac Surgery Physician Public Health Administrator Team may be reached at . Antibiotic [...] Please refer to the card with the [place] Heart Association Guidelines for more information. You [...] Dr. Hayder Graham. You may use a [place] Track or treadmill but avoid any pulling [...] should resume a low fat, low cholesterol, [place] Heart Association Diet. Driving: No driving until [...] while being managed by your PCP and/or Nascar Pit Crew Person. For future medication refills, please refer to your PCP and/or Nascar Pit Crew Person after your discharge from our service. Thank you REMOVE CHEST TUBE SUTURES ON OR AFTER 03/02/24 Home oxygen therapy: N/A Follow up appointments: You should follow up with your PCP, Aparna Jordan APRN, in 1-2 weeks. Our office will schedule an appointment with your Nascar Pit Crew Person, Neftali Ernandez MD , in 2 weeks. You have an appointment with your Cardiac Surgeon, Dr. Hayder Graham, 4 weeks with a chest x-ray, EKG, and Echo before your appointment. Cardiac Rehabilitation: Karlos Garcia was seen regarding participation in the outpatient Phase 2Cardiac Rehabilitation at [facility]. The patient agrees to a referral to [...] 0600 and on the weekends please page [phone]. * Eric Barahona PA - 02/23/2024 9:27 [...] 0600 and on the weekends please page [phone]. * Tiffanie Owens PTA - 02/22/2024 2:48 [...] d/c for 10 days. Pt was indep [employer]. He drives. He works Precautions/Special Considerations: [...] LRAD and supervision Time IN / OUT: 3266-7693 Total Time: 30 minutes; TEFx2 Tiffanie Owens Pager: [phone] Physical Therapy Inpatient Rehabilitation Department * Romeo [...] 0600 and on the weekends please page [phone]. * Kelley Hinson, [employer] - 02/21/2024 10:15 AM EDT Physical [...] d/c for 10 days. Pt was indep [employer]. He drives. He works Precautions/Special Considerations: [...] LRAD and supervision Time IN / OUT: 5678-8488 Total Time: 25 minutes; TEF 2 Kelley Hinson PTA Pager: [phone] Physical Therapy Inpatient Rehabilitation Department * Louisa [...] 0600 and on the weekends please page [phone]. * Kelley Hinson PTA - 02/20/2024 3:32 [...] at that time Kelley Hinson PTA Pager: [phone] Physical Therapy Inpatient Rehab Department * Louisa [...] 0600 and on the weekends please page [phone]. * Maris Benavides, PT - 02/19/2024 11:22 [...] d/c for 10 days. Pt was indep [employer]. He drives. He works. Precautions/Special Considerations: [...] outlined inthis evaluation. MARIS BENAVIDES, PT Pager: [phone] Physical Therapy Inpatient Rehabilitation Department Time IN / OUT: 1548-7515 Total Time: 38 (eval) minutes; * Antonio [...] 0600 and on the weekends please page [phone]. * Minnie Begum PA - 02/18/2024 8:25 [...] 0600 and on the weekends please page [phone]. * Kim Ha RCP - 02/17/2024 2:25 [...] plan since last visit. Hayder Graham MD [phone] Source Note - Hayder Graham MD - [...] insufficiency. He has glaucoma. He used to [employer] until about 15 years ago. He has [...] given written informed consent. Hayder Graham MD [phone] * Hayder Graham MD - 02/17/2024 7:00 [...] given written informed consent. Hayder Graham MD [phone] documented in this encounter Miscellaneous Notes * [...] for follow-up Home Health & Hospice, [address] [place] [address] Cardiac Rehab, [address] [place] [address] Transportation: family or friend will provide Functional status prior to admission: Independent Home Environment: Others in the home: alone. Current Living Arrangements: home/apartment/condo. Accessibility Concerns:a few steps to enter 1 floor home. Current Functional Ability: Assistive Person and Equipment DME used at home: none DME Needed at Discharge: N/A Patient is insured through: Primary Insurance: [employer] Payor: [facility] / Plan: [facility] PPO / Product Type: *No [...] pain managed with scheduled Tylenol. Worked with [employer]. Ambulated in the roque multiple times during [...] anticipated Patient is insured through: Primary Insurance: [employer] Payor: [facility] / Plan: [facility] PPO / Product Type: *No Product type* / Secondary Insurance: N/A Last Physical Therapy Recommendation: home with home health (Str coming to stay for a week or two upon d/c) with to be determined (owns rolling walker, shower seat) Plan for discharge is: Home w/ Services Outpatient Agency/Support Group Needs: Homecare agency Home Health Services: Physical Therapy, Registered Nurse Agency Referrals: [facility]. [address] [place] [address] Transportation: family or friend will provide Barriers to discharge: Discharge planning Plan going forward: Service Care Management will continue to follow and assist with discharge planning and coordination of care as indicated. Anticipated Date of Discharge: 02/22/2024 Rhett Bell RN RN/CM - Cellphone: [phone] Pager: [phone] Covering Service RN/CM * Plan of Care [...] RN - 02/19/2024 10:44 AM EDT [facility] CARDIAC REHABILITATION Karlos Garcia was seen today regarding participation in the outpatient Phase 2 Cardiac Rehabilitation at [facility]. 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 (Only good for 180 days) Any patient receiving care in [place] must abide by [place] law. The hierarchy for surrogate decision making [...] (i) The agent with financial power of client administrator or a conservator appointed in accordance with [...] In the past 12 months has the [employer], gas, oil, or water [employer] threatened to shut off services in [...] as: [address] [facility] [address] Physical address: [address] [facility], [address] Social & Family Supports: All names listed [...] Information: none noted Health/Prescription Coverage: Primary Insurance: [facility] Payor: [facility] / Plan: [facility] PPO / Product Type: *No Product type* / Secondary Insurance: N/A ; Prescription Coverage: Yes Preferred Pharmacy: [id number] AT [address] [address] [place] Status: Patient is a : No Primary Care Provider confirmed: Aparna Jordan, BLACK OXIDE OPERATOR [phone] Patient/Caregiver Goals of Treatment: dc to home Potential Needs for Transition of Care: home health care Agency Referrals: I have met with the patient to: discuss discharge planning needs. provide the [facility], Office of Care Management letter from the Office Nurse pertaining to rehab referrals. provide a letter describing our affiliations within the [facility] and educate about their right to choose where referrals are sent. provide a list of Home Health Agencies / Durable Medical Equipment vendors which serve their preferred geographic area. provided patient with [facility] Star Quality Rating handout. They have requested referrals to: [facility]. [address] [place] [address] Note routed to a Mammal Keeper who will communicate referrals to facilities and [...] Reina Greene RN CM, BSN, CMGT- Ext [phone] * Plan of Care - Binta Trinidad [...] Operative Note Patient Name: Karlos Garcia : [id number] MR#: [id number] Case Date: 02/17/2024 Surgeon: Surgeon(s) and Role: * Hayder Graham MD - Primary * Neftali Menon PA - Physician Public Health Administrator Preoperative diagnosis: CAD Postoperative diagnosis: CAD, intraoperative [...] MD - 02/17/2024 8:20 AM EDT [facility] Operative Note Patient Name: Karlos Garcia : [id number] MR#: [id number] Case Date: 02/17/2024 Surgeon: Surgeons and Role: * Hayder Graham MD - Primary * Neftali Menon PA - Physician Public Health Administrator Preoperative diagnosis: CAD Postoperative diagnosis: CAD, intraoperative [...] Mediastinal and Left pleural Disposition: [facility] Procedure Description: The patient was brought [...] 3:40 PM EST Office Visit Cardiology at [address] [place] [address] Neftali Ernandez MD [facility] [place] [address] Scheduled Orders Name Type Priority Associated Diagnoses [...] Aortic Valve Open W Cardiopulmonary Bypass Homogrf/Stent (13400) Yes 02/17/2024 7:28 AM EDT CAD Cabg, Artery-Vein, Two (58053) Yes 02/17/2024 7:28 AM EDT CAD Cabg, Arterial, Single (05675) Yes 02/17/2024 7:28 AM EDT CAD Endoscopy W/Video-Asst Vein [place], Cabg (85629) Yes 02/17/2024 7:28 AM EDT CAD POCT [...] CHEMISTRY ORDERABLE S [facility] [place] [address] * (ABNORMAL) Basic Metabolic Panel (non-fasting) (02/23/2024 [...] MD CHEMISTRY ORDERABLES [facility] [place] [address] * Potassium (02/22/2024 4:30 AM EDT) Potassium [...] CHEMISTRY ORDERABLE S [facility] [place] [address] * (ABNORMAL) Basic Metabolic Panel (non-fasting) (02/21/2024 [...] Carpio MD CHEMISTRY ORDERABLES Performing Organization Address City/[facility]/ZIP Co de Phone Number [facility] [place] [address] * Lactate, whole blood, send to lab ([facility]) (02/21/2024 9:45 AM EDT) [facility] [address] Lactate WB 2.0 0.5 - 2.2 mmol/L [facility] Blood 02/21/2024 9:45 AM EDT 02/21/2024 9:52 AM EDT Narrative Resulting Agency Comment Spec In Lab Hayder Graham MD CHEMISTRY ORDERABLE S Performing Organization Address [facility]/ZIP Co de Phone Number [facility] [place] [address] * (ABNORMAL) Hepatic Function Panel (02/21/2024 9:45 [...] Resulting Agency Comment Spec In Lab Hayder Garham MD CHEMISTRY ORDERABLE S Performing Organization Address [facility]/ZIP Co de Phone Number [facility] [place] [address] * Lipase (02/21/2024 9:45 AM EDT) Lipase 56 0 - 60 unit/L [facility] Blood 02/21/2024 9:45 AM EDT 02/21/2024 9:52 AM EDT Narrative Resulting Agency Comment Spec In Lab Hayder Graham MD CHEMISTRY ORDERABLE S Performing Organization Address [facility] Co de Phone Number [facility] [place] [address] * Amylase (02/21/2024 9:45 AM EDT) Amylase 69 28 - 100 unit/L [facility] Blood 02/21/2024 9:45 AM EDT 02/21/2024 9:52 AM EDT Narrative Resulting Agency Comment Spec In Lab Hayder Graham MD CHEMISTRY ORDERABLE S Performing Organization Address [facility] Co de Phone Number [facility] [place] [address] * Potassium (02/21/2024 3:08 AM EDT) Potassium [...] CHEMISTRY ORDERABLE S [facility] [place] [address] * XR Chest PA & Lateral (Generic) (02/20/2024 10:19 AM EDT) WORKSTATION ID [id number] RAD Anatomical Region Laterality Modality Chest N/A Digital Radiogra phy Impressions 02/20/2024 1:11 PM EDT Small pleural effusions. No pneumothorax Thank you for letting us participate in the care of this patient. ??If you are a health care provider and have any questions regarding this report, please contact the number below. ??For patients who have questions please contact the health animal caregiver that requested your imaging first. ? Narrative 02/20/2024 1:11 PM EDT EXAMINATION: XR CHEST PA AND LATERAL (GENERIC) CLINICAL HISTORY: s/p AVR/CABGx3 TECHNIQUE: PA and lateral views of the chest COMPARISON: 02/17/2024 FINDINGS: Support devices: Interval removal of [place]aila catheter, endotracheal tube and mediastinal chest tubes The cardiac silhouette is stable status post median sternotomy, CABG and aortic valve replacement. There are small pleural effusions. No pneumothorax. Procedure Note Rogerio Cruz MD - 02/20/2024 EXAMINATION: XR CHEST PA AND LATERAL (GENERIC) CLINICAL HISTORY: s/p AVR/CABGx3 TECHNIQUE: PA and lateral views of the chest COMPARISON: 02/17/2024 FINDINGS: Support devices: Interval removal of [place]-Kaila catheter, endotracheal tubeand mediastinal chest tubes The [...] who have questions please contactthe health animal caregiver that requested your imaging first. Hayder Graham MD IMG DX ORDERABLES * Scan, Peripheral Blood (02/20/2024 4:23 AM EDT) Pathologist [facility] Plat estimate Decreased [facility] RBC Morphology Normal [facility] Blood 02/20/2024 4:23 AM EDT 02/20/2024 4:42 AM EDT Narrative Resulting Agency Comment Spec In Lab Minnie FRENCH HEMATOLOGY CECILIO ALEMAN [facility] [place] [address] * (ABNORMAL) Differential, Automated (02/20/2024 4:23 AM EDT) [facility] [address] [facility] Neutrophil % 81.7 % [facility] Neutrophil Absolute 10.37(H) 1.70 - 6.10 x10(3)/mc L [facility] Lymph % 7.4 % [facility] Lymphocytes Abs 0.9 0.9 - 3.2 x10(3)/mc L [facility] Monocyte % 9.7 % [facility] Monocyte Abs 1.2(H) 0.3 - 0.9 x10(3)/mc L [facility] Eos % 0.1 % [facility] Eosinophils Abs 0.0 0.0 - 0.4 x10(3)/[facility] Basophil % 0.2 % [facility] Baso Absolute 0.0 0.0 - 0.1 x10(3)/[facility] Immature Gran % 0.90 % [facility] Comment: Immature granulocytes(IG's)percentage and absolute count will include metamyelocytes, myelocytes, and promyelocytes. Blood smears from CBCs yielding IG's will be scanned manually for concordance. If this scan disagrees with the automated IG or if promyelocytes are noted, a manual differential will be performed. Immature Gran Absolute 0.12(H) 0.00 - 0.04 x10(3)/[facility] Blood 02/20/2024 4:23 AM EDT 02/20/2024 4:42 AM EDT Narrative Resulting Agency Comment Spec In Lab Minnie FRENCH HEMATOLOGY CECILIO ALEMAN [facility] [place] [address] * (ABNORMAL) Hemogram (02/20/2024 4:23 AM EDT) White Blood Cell 12.7(H) 4.0 - 9.5 x10(3)/[facility] Red Blood Cell 4.26(L) 4.58 - 5.54 x10(6)/ L [facility] Hemoglobin 12.3(L) [...] [facility] NRBC% auto 0.0 % [facility] NRBC Absolute 0.000 0.000 - 0.000 x10(3)/mc L [facility] Blood 02/20/2024 4:23 AM EDT 02/20/2024 4:42 AM EDT Narrative Resulting Agency Comment Spec In Lab Minnie FRENCH HEMATOLOGY CECILIO ALEMAN [facility] [place] [address] * (ABNORMAL) Basic Metabolic Panel (non-fasting) (02/20/2024 [...] Address [facility]/ZIP Co de Phone Number [facility] [place] [address] * Potassium (02/19/2024 3:57 AM EDT) [facility] [address] [facility] Potassium 4.3 3.5 - 5.0 mmol/L [facility] [...] CHEMISTRY ORDERABLE S [facility] [facility] [place] [address] * POCT Glucose (02/18/2024 8:24 AM EDT) Glucose, POC 157 65 - 199 mg/dL [facility] Comment: Supplemental ranges: <140 mg/dL before meals <180 mg/dL all other times of the day Blood 02/18/2024 8:24 AM EDT 02/18/2024 8:24 AM EDT Hayder Graham MD POINT OF CARE TEST ORDERABLES Performing Organization Address City/[facility]/ZIP Co de Phone Number [facility] [place] [address] * Scan, Peripheral Blood (02/18/2024 1:40 AM EDT) [facility] [address] Plat estimate Decreased [facility] RBC Morphology Normal [facility] Blood 02/18/2024 1:40 AM EDT 02/18/2024 1:56 AM EDT Narrative Resulting Agency Comment Spec In Lab Neftali FRENCH HEMATOLOGY ORDER OLE Performing Organization Address City/[facility]/ZIP Co de Phone Number [facility] [place] [address] * (ABNORMAL) Differential, Automated (02/18/2024 1:40 AM EDT) [facility] [address] Neutrophil % 87.1 % [facility] Neutrophil Absolute 15.03(H) 1.70 - 6.10 x10(3)/mc L [facility] Lymph % 3.0 % [facility] Lymphocytes Abs 0.5(L) 0.9 - 3.2 x10(3)/mc L [facility] Monocyte % 9.1 % [facility] Monocyte Abs 1.6(H) 0.3 - 0.9 x10(3)/mc L [facility] Eos % 0.0 % [facility] Eosinophils Abs 0.0 0.0 - 0.4 x10(3)/mc L [facility] Basophil % 0.2 % [facility] HEMATOLOGY ORDER OLE [facility] [place] [address] * (ABNORMAL) Hemogram (02/18/2024 1:40 AM EDT) [...] [facility] NRBC% auto 0.0 % [facility] NRBC Absolute 0.000 0.000 - 0.000 x10(3)/mc L [facility] Blood 02/18/2024 1:40 AM EDT 02/18/2024 1:56 AM EDT Narrative Resulting Agency Comment Spec In Lab Neftali FRENCH HEMATOLOGY ORDER OLE [facility] [place] [address] * (ABNORMAL) Basic Metabolic Panel (non-fasting) (02/18/2024 [...] CHEMISTRY ORDERABLE S [facility] [place] [address] * (ABNORMAL) Troponin (02/18/2024 1:40 AM EDT) [...] [facility] Test Catalog Reference: Fourth Garnett Definition of Myocardial Infarction. Journal of the [place] [employer] 2018;72:3011-9576 Blood 02/18/2024 1:40 AM EDT 02/18/2024 1:56 AM EDT Narrative Resulting Agency Comment Spec In Lab Hayder Graham MD CHEMISTRY ORDERABLE S [facility] [place] [address] * POCT Glucose (02/17/2024 8:13 PM EDT) Glucose, POC 142 65 - 199 mg/dL [facility] Comment: Supplemental ranges: <140 mg/dL before meals <180 mg/dL all other times of the day Blood 02/17/2024 8:13 PM EDT 02/17/2024 8:13 PM EDT Hayder Graham MD POINT OF CARE TEST ORDERABLES Performing Organization Address [facility]/ZIP Co de Phone Number [facility] [place] [address] * POCT Glucose (02/17/2024 5:42 PM EDT) Glucose, POC 160 65 - 199 mg/dL [facility] Comment: Supplemental ranges: <140 mg/dL before meals <180 mg/dL all other times of the day Blood 02/17/2024 5:42 PM EDT 02/17/2024 5:42 PM EDT Hayder Graham MD POINT OF CARE TEST ORDERABLES Performing Organization Address City/[facility]/ZIP Co de Phone Number [facility] [place] [address] * Hemoglobin (02/17/2024 5:42 PM EDT) Hemoglobin 13.7 13.7 - 16.5 g/dL [facility] Blood 02/17/2024 5:42 PM EDT 02/17/2024 6:10 PM EDT Narrative Resulting Agency Comment Spec In Lab Hayder Graham MD HEMATOLOGY ORDERABL ES Performing Organization Address [facility] Co de Phone Number [facility] [place] [address] * Potassium (02/17/2024 5:42 PM EDT) Pathologist [facility] Potassium 4.3 3.5 - 5.0 mmol/L [facility] [...] Address [facility] de Phone Number [facility] [place] [address] * (ABNORMAL) BLOOD GAS 2 ARTERIAL (02/17/2024 [...] [facility] FIO2 Art 40 % [facility] PF Ratio Art 195 [facility] Blood 02/17/2024 4:18 PM EDT 02/17/2024 4:18 PM EDT Hayder Graham MD POINT OF CARE TEST ORDERABLES Performing Organization Address City/State/[facility] Co de Phone Number [facility] [place] [address] * XR Chest One View (02/17/2024 1:44 PM EDT) WORKSTATION ID [id number] RAD Anatomical Region Laterality Modality Chest N/A Digital Radiogra phy Impressions 02/17/2024 2:12 PM EDT 1. ??No definite pleural fluid collection or pneumothorax. 2. ??Right IJ [place]-Kaila catheter tip terminates in a descending branch [...] have questions please contact the health animal caregiver that requested your imaging first. ? Narrative 02/17/2024 2:12 PM EDT EXAMINATION: XR CHEST ONE VIEW CLINICAL HISTORY: s/p avr/cabg eval effusions TECHNIQUE: 1 view of the chest COMPARISON: Chest x-ray 01/09/2024, chest CT 02/03/2024 FINDINGS: ET tube tip terminates 5.2 cm above the carlos. Right IJ [place]-Kaila catheter tip terminates in a descending branch [...] 5.2 cm above the carlos. Right IJ Arvada-Ganzcatheter tip terminates in a descending branch of [...] fluid collection or pneumothorax. 2. Right IJ [place]-Kaila catheter tip terminates in a descending branch ofthe right pulmonary artery. Suggest catheter retraction. 3. Additional support lines and tubes as above. Thank you for letting us participate in the care of this patient. If youare a health care provider and have any questions regarding this report,please contact the number below. For patients who have questions please contactthe health animal caregiver that requested your imaging first. Hayder [...] [facility] FIO2 Art 100 % [facility] PF Ratio Art 320 [facility] Blood 02/17/2024 1:31 PM EDT 02/17/2024 1:31 PM EDT Hayder Graham MD POINT OF CARE TEST ORDERABLES [facility] [place] [address] * (ABNORMAL) Coox2 (02/17/2024 1:21 PM EDT) [...] CARE TEST ORDERABLES [facility] [place] [address] * (ABNORMAL) BLOOD GAS 2 ARTERIAL (02/17/2024 [...] Address [facility] de Phone Number [facility] [place] [address] * (ABNORMAL) Fibrinogen (02/17/2024 12:10 PM EDT) [...] Address [facility] de Phone Number [facility] [place] [address] * (ABNORMAL) Thrombin time (02/17/2024 12:10 PM [...] ORDERABLE S Performing Organization Address [facility] de Phone Number [facility] [place] [address] * APTT (02/17/2024 12:10 PM EDT) Partial [...] Address [facility] de Phone Number [facility] [place] [address] * (ABNORMAL) Prothrombin Time (02/17/2024 12:10 PM [...] HEMATOLOGY ORDERABLE S [facility] [place] [address] * (ABNORMAL) Hemogram (02/17/2024 12:10 PM EDT) [...] [facility] NRBC% auto 0.0 % [facility] NRBC Absolute 0.000 0.000 - 0.000 x10(3)/mc L [facility] Blood 02/17/2024 12:1 0 PM EDT 02/17/2024 12:19 PM EDT Narrative Resulting Agency Comment Spec In Lab Tara York MD HEMATOLOGY ORDERABLE S [facility] [place] [address] * (ABNORMAL) BLOOD GAS 2 ARTERIAL (02/17/2024 [...] [facility] Comment: Noted by instrumentation chemist. Please note: Patients with WBC >100,000 may [...] CARE TEST ORDERABLES [facility] [place] [address] * (ABNORMAL) BLOOD GAS 2 ARTERIAL (02/17/2024 [...] [facility] Comment: Noted by instrumentation chemist. Please note: Patients with WBC >100,000 may [...] OF CARE TEST ORDERABLES Performing Organization Address City/[facility]/ZIP Co de Phone Number [facility] [place] [address] * (ABNORMAL) Hemoglobin and Hematocrit, blood (02/17/2024 11:04 AM EDT) Hemoglobin 9.6(L) 13.7 - 16.5 g/dL [facility] Hematocrit 28.0(L) 40.5 - 48.5 % [facility] Comment: This result has been called to ALONDRA PAGAN by Eddie Lópze on 02 17 2024 at 1120, and has been read back. Blood 02/17/2024 11:0 4 AM EDT 02/17/2024 11:12 AM EDT Narrative Resulting Agency Comment Spec In Lab Hayder Graham MD HEMATOLOGY ORDERABL ES [facility] [place] [address] * (ABNORMAL) Platelet count (02/17/2024 11:04 AM EDT) Platelet 106(L) 145 - 357 x10(3)/mc L [facility] Immature Plt % 1.6 0.0 - 7.4 % [facility] Comment: Limitation of the Immature Platelet Fraction (IPF)-May be less reliable when the platelet count is less than 30e126/uL due to statistical imprecision. The IPF value [...] in a decreased state of production. References: [employer] The Clinical Value of the Immature Platelet Fraction (IPF) in Cell Recovery Document Number [id number] 03/2011 [employer] The Role of the Immature Platelet Fraction (IPF) in the Differential Diagnosis of Thrombocytopenia, Document [id number] V002/15/14 P014 Blood 02/17/2024 11:0 4 AM EDT 02/17/2024 11:12 AM EDT Narrative Resulting Agency Comment Spec In Lab Hayder Graham MD HEMATOLOGY ORDERABL ES [facility] [place] [address] * (ABNORMAL) Fibrinogen (02/17/2024 11:04 AM EDT) Pathologist [facility] Fibrinogen 149(L) 200 - 393 mg/dL [facility] [...] HEMATOLOGY ORDERABL ES [facility] [place] [address] * (ABNORMAL) BLOOD GAS 2 ARTERIAL (02/17/2024 [...] OF CARE TEST ORDERABLES Performing Organization Address City/State/[facility] Co de Phone Number [facility] [place] [address] * (ABNORMAL) BLOOD GAS 2 ARTERIAL (02/17/2024 [...] OF CARE TEST ORDERABLES Performing Organization Address City/State/[facility] Co de Phone Number [facility] [place] [address] * Surgical Pathology Report (02/17/2024 10:01 AM EDT) Final Diagnosis [id number] ? Location: [facility]; [address] [place] [address] The signing pathologist has (i) examined the relevant preparation(s) for the specimen(s) and (ii) rendered or confirmed the diagnosis(es). . ?Surgical Pathology DIAGNOSIS Aortic valve leaflets, excision: Valve leaflets with myxoid degeneration, nodular fibrosis and dystrophic calcifications. Electronically signed by: ?Livier Motnoya MD Verified: ??02/24/2024 13:49 ??Pathologist Performed at: ??-[facility] Dept. of Pathology, [place] [address] Office Nurse: Job Brewer MD, AP, ??CLIA Certificate: [id number] SPECIMEN(S) SUBMITTED A - Aortic Valve Leaflets, [...] Sections Processing Blocks submitted for decalcification: A1. Acoustic Warfare Analyst sections in 1 cassette labeled A1. ??ajw 02/24/2024 1:49 PM EDT [facility] AORTIC STRUCTURE / Unknown 02/17/2024 10:01 AM EDT 02/17/2024 10:01 AM EDT Hayder Graham MD PATHOLOGY/CYTOLOGY ORDERABLES [facility] [place] [address] * Specimen to Pathology (02/17/2024 10:01 AM EDT) AP Specimen 02/17/2024 10:0 1 AM EDT 02/17/2024 10:01 AM EDT Narrative [facility] - 02/17/2024 10:01 AM EDT Specimen requisition ordered. ??Separate Pathology report to follow Hayder Graham MD PATHOLOGY/CYTOLOGY ORDERABLES [facility] [place] [address] * (ABNORMAL) BLOOD GAS 2 ARTERIAL (02/17/2024 [...] CARE TEST ORDERABLES [facility] [place] [address] * (ABNORMAL) BLOOD GAS 2 VENOUS (02/17/2024 9:34 AM EDT) pH, Venous 7.22(Criti marquez) 7.32 - 7.42 [facility] Comment:Noted by instrumentation chemist. PCO2, Venous 43 41 - 51 mmHg [facility] Comment:Noted by instrumentation chemist. PO2, Venous 57(H) 25 - 40 mmHg [facility] Comment:Noted by instrumentation chemist. Bicarbonate, Venous 17.1 mmol/L [facility] Comment:Noted by instrumentation chemist. Base Excess, Venous -10.6 mmol/L [facility] Comment:Noted by instrumentation chemist. Hgb Blood Gas 11.2(L) 13.7 - 16.5 g/dL [facility] Comment:Noted by instrumentation chemist. Oxyhemoglobin, Venous 86.5 % [facility] Comment:Noted by instrumentation chemist. Carboxyhemoglob in, Venous 0.3 % [facility] Comment: Noted by instrumentation chemist. Nonsmokers: 0.5-1.5% COHB Smokers: Variable, but usually less than 10% Toxic: 20-30% COHB Lethal: Greater than 60% COHB Methemoglobin, Venous 0.0 <=1.5 % [facility] Comment:Noted by instrumentation chemist. Na Whole Blood 156(H) 135 - 145 mmol/L [facility] Comment:Noted by instrumentation chemist. K Whole Blood 5.5(H) 3.5 - 5.0 mmol/L [facility] Comment: Noted by instrumentation chemist. Please note: Patients with WBC >100,000 may have falsely elevated Potassium levels. Contact the Clinical Chemistry Laboratory if there are any questions. ICa Whole Blood 1.03(L) 1.15 - 1.33 mmol/L [facility] Comment: Noted by instrumentation chemist. Note: ??Total bilirubin higher than 20 mg/dL may lead to falsely low ionized calcium. CL Whole Blood 100 98 - 107 mmol/L [facility] Comment:Noted by instrumentation chemist. Gluc Whole Bld 132 65 - 199 mg/dL [facility] Comment: Noted by instrumentation chemist. Diabetes: >=200 mg/dL plus symptoms Lactate WB 1.0 0.5 - 2.2 mmol/L [facility] Comment:Noted by instrumentation chemist. Blood Gas Source Venous [facility] Blood 02/17/2024 9:34 AM EDT 02/17/2024 9:34 AM EDT Hayder Graham MD POINT OF CARE TEST ORDERABLES [facility] [place] [address] * (ABNORMAL) BLOOD GAS 2 ARTERIAL (02/17/2024 [...] Address [facility] de Phone Number [facility] [place] [address] * POCT Glucose (02/17/2024 6:38 AM EDT) Glucose, POC 98 65 - 199 mg/dL [facility] Comment: Supplemental ranges: <140 mg/dL before meals <180 mg/dL all other times of the day Blood 02/17/2024 6:38 AM EDT 02/17/2024 6:38 AM EDT Hayder Graham MD POINT OF CARE TEST ORDERABLES Performing Organization Address [facility] Phone Number [facility] [place] [address] * Transesophageal Echo/OR (02/17/2024 6:33 AM EDT) [...] transes[facility] post-operative [facility] of cardiac [...] 6 hours upon arrival to Unit. Give VA if unable to take PO, Routine Given [...] dose on Sat02/17/24 at 1400, Until Discontinued, [place] teeth and / or gums. Scan the CHG vial in the [employer] Q-Care Oral Care Kit from floor stock. Ventilator-associated pneumonia prophylaxis For use in ICU/Critical care locations ONLY. Obtain kit from Floor Stock location. Scan CHG vial in the [employer] Q-Care Oral Care Kit, Routine Given 02/17/2024 [...] at 50% of previous rate. Call house steward/stewardess if goal not achieved at maximum rate. [...] PHENYLephrine and/or vasopressin ineffective. Call pager # [phone] if initiated. Titrate to keep systolic blood [...] L/min/M2. Maximum volume 2 L. Call house steward/stewardess for additional fluid orders: pager #[phone]. Rate/Dose Verify 02/18/2024 8:00 AM EDT 1 mL/hr 1 mL/hr Rate/Dose Verify 02/18/2024 6:00 AM EDT 1 mL/hr 1 mL/hr Rate/Dose Verify 02/18/2024 4:00 AM EDT 1 mL/hr 1 mL/hr sodium chloride 0.9% infusion 10-30 mL/hr, Intravenous, DAILY PRN, Starting on Sat02/17/24 at 1307, Until Sat02/18/24 at 0835, Side port TKO rate, per [facility] nursing protocol. Rate/Dose Verify 02/17/2024 8:00 PM EDT 30 mL/hr 30 mL/hr Rate/Dose Verify 02/17/2024 6:00 PM EDT 30 mL/hr 30 mL/h r Rate/Dose Verify 02/17/2024 5:00 PM EDT 30 mL/hr 30 mL/h r sodium chloride 0.9% infusion 10-30 mL/hr, Intravenous, DAILY PRN, Starting on Sat02/17/24 at 1307, Until Sat02/18/24 at 0835, Side port TKO rate, per [facility] nrusing protocol. Rate/Dose Verify 02/18/2024 8:00 [...] Britton RN)[phone] (Given - Provider: Reilly N Larose, RN)[phone] (Given - Provider: Ingrid Menjivar RN) [...] Reilly Vincent RN)1409 (Given - Provider: Ingrid Menjviar RN)[phone] (Given - Provider: Polo Britton RN) [...] Routine documented in this encounter Care Teams Inspector Eyeglass Frames Relationship Specialty Start Date End Date Aparna Jordan, MAURI PCP - General Family Medicine 10/21/23 05/26/24 documented as of this encounter
--- OUTSIDE RECORDS SUMMARY | 2024-07-14 10:09 | XMS_ITS | Encounter Summary ---
Author Organization Formerly [facility] [place] [address] Care Team Providers Care Emergency Dept Tech Name Role Phone Vanessa Christian APRN Primary Care Provider [phone] Encounter Details Date Type Department Care Team (Late st Contact Info) Description 10/21/2023 Abstract Cardiology at [address] [id number] Adam Mayes RN Social History Tobacco Use [...] 3:40 PM EST Office Visit Cardiology at [address] [address] Neftali Ernandez MD [facility] [address] documented as of this encounter Visit Diagnoses Not on filedocumented in this encounter Care Teams Emergency Dept Tech Relationship Specialty Start Date End Date Vanessa Christian APRN PCP - General Family Medicine 10/21/23 05/26/24 documented as of this encounter
--- OUTSIDE RECORDS SUMMARY | 2024-07-14 10:09 | XMS_ITS | Encounter Summary ---
Author Organization [facility] [place] [address] Care Team Providers Care Biological Plant Operator Name Role Phone Vanessa Christian APRN Primary Care Provider [phone] Encounter Details Date Type Department Care Team (Late st Contact Info) Description 12/26/2023 Notes Only Cardiology at [address] [address] Neftali Ernandez MD [facility] [place] [address] Social History Tobacco Use Types Packs/Day Years [...] PM EDT Echocardiogram images reviewed from [facility]. Indeed, the aortic valve appears severely stenotic. Cannotrule out bicuspid valve documented in this encounter Plan of Treatment Upcoming Encounters Date Type Department Care Team (Late st Contact Info) Description 11/09/2024 3:40 PM EST Office Visit Cardiology at [address] [address] Neftali Ernandez MD [facility] [place] [address] documented as of this encounter Visit Diagnoses Not on filedocumented in this encounter Care Teams Biological Plant Operator Relationship Specialty Start Date End Date Vanessa Christian APRN PCP - General Family Medicine 10/21/23 05/26/24 documented as of this encounter
--- OUTSIDE RECORDS SUMMARY | 2024-07-14 10:09 | XMS_ITS | Encounter Summary ---
Author Organization Formerly [facility] [place] [address] Care Team Providers Care Coding Support Specialist Name Role Phone Vanessa Christian MAURI Primary Care Provider [phone] Reason for Visit * Auth/Cert (Routine) Specialty [...] GRAFT (WRVU 7.93) Zak Farmer MD [facility] C[place]IOTH[place]AC[place] [address] [facility] Referral ID Status Reason Start Date Expiration Date Visits Re quested Visits Authorized [id number] 1 1 Encounter Details Date Type Department Care Team (Late st Contact Info) Description 02/17/2024 7:35 AM EDT Anesthesia Event Main Operating Room [facility] [place] [phone] Roman York MD [facility] [place] [address] Anesthesia Record Procedure Summary Procedure Name Responsible [...] by Sadiq Woo RN PIV 02/17/24; 0715; aitu-pxn-[id number] catheter system; 18 gauge; cephalic vein (lateral [...] oz pur e alcohol) rare [facility] Utilities Answer Date Recorded In the past 12 months has th e electric, gas, oil, or water [employer] aeroplanes threatened to shut off services in your [...] Procedure Summary Date: 02/17/24 Room / Location: [facility] OR [address] [place] [address] MAIN OR Anesthesia Start: 734 Anesthesia Stop: [...] unfiled device data. Patient Location: [facility] Level of Consciousness: Sedated (Pharmacologic/Intentional) Pain [...] 08/14/2023 ??? Nevus of face 09/26/2023 Right confucianist No past surgical history on file. Social [...] 3:40 PM EST Office Visit Cardiology at [address] [place] [address] Neftali Ernandez MD [facility] [place] [address] documented as of this encounter [...] mg documented in this encounter Care Teams Coding Support Specialist Relationship Specialty Start Date End Date Vanessa Christian APRN PCP - General Family Medicine 10/21/23 05/26/24 documented as of this encounter
--- OUTSIDE RECORDS SUMMARY | 2024-07-14 10:09 | XMS_ITS | Encounter Summary ---
Author Organization [facility] Address [facility] [place] [address] Care Team Providers Care Paint Supervisor Name Role Phone Vanessa Christian MAURI Primary Care Provider [phone] Encounter Details Date Type Department Care Team (Latest Contact Info) Description 01/09/2024 3:02 PM EDT - 01/09/2024 11:59 PM EDT Hospital Encounter XRay at [address] [place] [address] Zak Farmer MD [facility] [place] [address] Nonrheumatic aortic valve stenosis Discharge Disposition: Home [...] 3:40 PM EST Office Visit Cardiology at [address] [place] [address] Neftali Ernandez MD [facility] [place] [address] documented as of this encounter Procedures Procedure [...] who have questions please contact the health transitional care manager that requested your imaging first. [...] patients who have questions please contactthe health transitional care manager that requested your imaging first. Zak Farmer MD IMG DX ORDERABLES documented in this encounter Visit Diagnoses Diagnosis Nonrheumatic aortic valve stenosis Aortic valve disorders documented in this encounter Care Teams Paint Supervisor Relationship Specialty Start Date End Date Vanessa Christian APRN PCP - General Family Medicine 10/21/23 05/26/24 documented as of this encounter
--- OUTSIDE RECORDS SUMMARY | 2024-07-14 10:09 | XMS_ITS | Encounter Summary ---
Author Organization [facility] Address [facility] [place] [address] Care Team Providers Care Auger Machine Offbearer Name Role Phone Vanessa Christian MAURI Primary Care Provider [phone] Encounter Details Date Type Department Care Team (Late st Contact Info) Description 02/14/2024 Orders Only [place] [phone] Zak Farmer MD [facility] [place] [address] Coronary artery disease, unspecified vessel or lesion type, unspecified whether angina present, unspecified whether [place] or transplanted heart (Primary Dx) [...] 3:40 PM EST Office Visit Cardiology at [address] [place] [phone] Neftali Ernandez MD [facility] [place], [place] [id number] documented as of this encounter Results * EKG 12 Lead (03/12/2024 2:35 PM EDT) Ventricular rate 59 BPM MUSE SYSTEM Atrial Rate 59 BPM MUSE SYSTEM P-R Interval 190 ms MUSE SYSTEM QRS Duration 92 ms MUSE SYSTEM Q-T Interval 406 ms MUSE SYSTEM QTC Calculated (Bezet) 401 ms MUSE SYSTEM Calculated P [place] -12 degrees MUSE SYSTEM Calculated R [place] 24 degrees MUSE SYSTEM Calculated T [place] 74 degrees MUSE SYSTEM INTERPRETATION Sinus bradycardia T wave abnormality, consider anterior ischemia Abnormal ECG When compared with ECG of 17-FEB-2024 13:24, MA interval has decreased T wave inversion now evident in Anterior leads Confirmed by Paul Guzman ([id number]) on 03/15/2024 8:36:23 AM MUSE SYSTEM 03/12/2024 2:35 PM EDT 03/15/2024 8:36 AM EDT Zak Farmer MD ECG ORDERABLES MUSE SYSTEM * XR Chest PA & Lateral (Generic) (03/12/2024 1:42 PM EDT) WORKSTATION ID [id number] RAD Anatomical Region Laterality Modality Chest N/A [...] who have questions please contact the health respite care provider that requested your imaging first. ? Electronically signed by: Augie Sanchez MD, 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 Electronically signed by: Augie Sanchez MD, [facility]([phone]), at 03/13/2024 8:28 AM Zak Farmer MD IMG DX ORDERABLES documented in this encounter Visit Diagnoses Diagnosis Coronary artery disease, unspecified vessel or lesion type, unspecified whether angina present, unspecified whether [place] or transplanted heart- Primary Coronary artery disease, unspecified vessel or lesion type, unspecified whether angina present, unspecified whether [place] or transplanted heart documented in this encounter Care Teams Auger Machine Offbearer Relationship Specialty Start Date End Date Vanessa Christian APRN PCP - General Family Medicine 10/21/23 05/26/24 documented as of this encounter
--- OUTSIDE RECORDS SUMMARY | 2024-07-14 10:09 | XMS_ITS | Encounter Summary ---
Author [facility] [place] [address] Care Team Providers Care Medical Assistant Float Name Role Phone Vanessa Christian Lane DOTSON Primary Care Provider [phone] Encounter Details Date Type Department Care Team (Late st Contact Info) Description 01/09/2024 2:30 PM EDT Clinical Support Same Day at [facility] [place] [phone] Social History Tobacco Use Types Packs/Day Years Used Date Smoking Tobacco: Former Cigarettes Smokeless Tobacco: Never Comments:Quit 15 + years ago Alcohol Use Standard Drinks/Week Comments Yes 0 (1 standard drink = 0.6 oz pur e alcohol) rare [facility] Inpatient Questions Answer Date Recorded [...] tube link for a video about [facility] cardiac surgery. Instructed to bring the booklet [...] type and screen performed while in the [facility]. Sent to Radiology for chest x-ray. Special medication instructions: None Procedure date: not booked. Darian documented in this encounter Plan of Treatment Upcoming Encounters Date Type Department Care Team (Late st Contact Info) Description 11/09/2024 3:40 PM EST Office Visit Cardiology at [address] [place] [address] Neftali Ernandez MD [facility] [place] [address] documented as of this encounter Visit Diagnoses Not on filedocumented in this encounter Care Teams Medical Assistant Float Relationship Specialty Start Date End Date Vanessa Christian APRN PCP - General Family Medicine 10/21/23 05/26/24 documented as of this encounter
--- OUTSIDE RECORDS SUMMARY | 2024-07-14 10:09 | XMS_ITS | Encounter Summary ---
Author Organization [facility] Address [facility] [place] [address] Care Team Providers Care Batterboard Setter Name Role Phone Vanessa Christian MAURI Primary Care Provider [phone] Reason for Visit * Consultation (Routine) - Closed Specialty Diagnoses / Procedures Referred By Contac t Referred To Contact Cardiac Surgery Diagnoses Nonrheumatic aortic valve stenosis significant - TAVR ( defers to Card Surg d/t age) Neftali Ernandez MD [facility] [place] [address] Zak Farmer MD [facility] CARDIOTHORACIC [place] [address] Referral ID Status Reason Start Date Expiration Date V isits Requested Visits Authorized [id number] Closed Consult, Test & Treat 10/21/2023 10/20/2024 1 1 Encounter Details Date Type Department Care Team (Late st Contact Info) Description 01/09/2024 1:40 PM EDT Office [place] [address] Zak Farmer MD [facility] CARDIOTHORACIC [place] [address] Nonrheumatic aortic valve stenosis Social [...] office. Best personal regards, Zak Farmer MD [phone] In aggregate 55 minutes were spent evaluating [...] 3:40 PM EST Office Visit Cardiology at [address] [place] [phone] Neftali Ernandez MD [facility] [place] [address] documented as of this encounter Results * [...] who have questions please contact the health palliative care nurse that requested your imaging first. [...] patients who have questions please contactthe health palliative care nurse that requested your imaging first. [...] CHEMISTRY ORDERABLE S [facility] [place] [address] * Hepatic Function Panel (01/09/2024 2:58 PM [...] MD CHEMISTRY ORDERABLE S Performing Organization Address [facility] Co de Phone Number [facility] [place] [address] * Prothrombin Time (01/09/2024 2:58 PM EDT) [facility] Prothrombin Time 10.6 9.4 - 12.5 [...] MD HEMATOLOGY ORDERABL ES Performing Organization Address [facility]/ZIP Co de Phone Number [facility] [place] [address] * Type and Screen Future Surgery, [facility] SAME DAY PROGRAM ONLY) (01/09/2024 2:58 PM EDT) ABORH Type O NEGATIVE [facility] Patient BB History Not Found [facility] Expires at [id number] on: 02-20-2024 [facility] Ab Screen Interp Negative [facility] Blood 01/09/2024 2:58 PM EDT 01/09/2024 2:58 PM EDT Narrative Resulting Agency Comment Spec In Lab Zak Farmer MD BLOOD BANK LAB CECILIO ALEMAN [facility] Organization Address City/State/ZIP Co de Phone Number [facility] [place] [address] documented in this encounter Visit Diagnoses Diagnosis Nonrheumatic aortic valve stenosis Aortic valve disorders Nonrheumatic aortic valve stenosis Aortic valve disorders documented in this encounter Care Teams Batterboard Setter Relationship Specialty Start Date End Date Vanessa Christian APRN PCP - General Family Medicine 10/21/23 05/26/24 documented as of this encounter
--- OUTSIDE RECORDS SUMMARY | 2024-07-14 10:09 | XMS_ITS | Encounter Summary ---
Author Organization [facility] Address [facility] [place] [address] Care Team Providers Care Jail Guard Name Role Phone Vanessa Christian APRN Primary Care Provider [phone] Encounter Details Date Type Department Care Team [...] 3:40 PM EST Office Visit Cardiology at [address] [place] [address] Neftali Ernandez MD [facility] [place] [address] documented as of this encounter Visit Diagnoses Not on filedocumented in this encounter Care Teams Jail Guard Relationship Specialty Start Date End Date Vanessa Christian APRN PCP - General Family Medicine 10/21/23 05/26/24 documented as of this encounter
--- OUTSIDE RECORDS SUMMARY | 2024-07-14 10:09 | XMS_ITS | Encounter Summary ---
Author Organization [facility] [place] [address] Care Team Providers Care Pan Dumper Name Role Phone Vanessa Christian MAURI Primary Care Provider [phone] Encounter Details Date Type Department Care Team (Latest Contact Info) Description 01/09/2024 3:00 PM EDT [place] [phone] Nonrheumatic aortic valve stenosis Social History Tobacco [...] 3:40 PM EST Office Visit Cardiology at [address] [phone] Neftali Ernandez MD [facility] [place] [address] documented as of this encounter Procedures Procedure Name Priority Date/Time Associated Diagnosis Comments ABORH RECHECK STATUS Routine 01/09/2024 2:58 PM EDT HEMOGRAM Routine 01/09/2024 2:58 PM EDT Nonrheumatic aortic valve stenosis DIFFERENTIAL, AUTOMATED Routine 01/09/2024 2:58 PM EDT Nonrheumatic aortic valve stenosis TYPE AND SCREEN, SDP (FUTURE SURGERY, [facility] SAME [facility] ONLY) Routine 01/09/2024 2:58 [...] BANK LAB CECILIO ALEMAN [facility] [address] * Differential, Automated (01/09/2024 2:58 PM EDT) Neutrophil % 70.5 % [facility] Neutrophil Absolute 4.34 1.70 - 6.10 x10(3)/[facility] LABORAT[facility] Lymph % 18.9 % [facility] Lymphocytes Abs 1.2 0.9 - 3.2 x10(3)/[facility] LAB[facility]ORY Monocyte % 8.0 % [facility] Monocyte Abs 0.5 0.3 - 0.9 x10(3)/[facility] LAB[facility] Eos % 1.6 % [facility] Eosinophils Abs 0.1 0.0 - 0.4 x10(3)/[facility] LABOR[facility] Basophil % 0.5 % [facility] Baso Absolute 0.0 0.0 - 0.1 x10(3)/[facility] LABORATORY Immature Gran % 0.50 % [facility] Comment: Immature granulocytes(IG's)percentage and absolute count will include metamyelocytes, myelocytes, and promyelocytes. Blood smears from CBCs yielding IG's will be scanned manually for concordance. If this scan disagrees with the automated IG or if promyelocytes are noted, a manual differential will be performed. Immature Gran Absolute 0.03 0.00 - 0.04 x10(3)/[facility] Blood 01/09/2024 2:58 PM EDT 01/09/2024 3:03 PM EDT Narrative Resulting Agency Comment Spec In Lab Zak Farmer MD HEMATOLOGY ORDERABL ES [facility] [address] * Hemogram (01/09/2024 2:58 PM EDT) White Blood Cell 6.2 4.0 - 9.5 x10(3)/[facility] LAB[facility]ATORY Red Blood Cell 5.53 4.58 - 5.54 x10(6)/[facility] Hemoglobin 16.1 13.7 - 16.5 g/dL [facility] Hematocrit 46.9 40.5 - 48.5 % [facility] Mean Cell Volume 84.8 82.9 - 93.1 fL [facility] Mean Cell Hemoglobin 29.1 27.5 - 32.1 pg [facility] Mean Cell Hemoglobin Concentration 34.3 32.0 - 35.7 g/dL [facility] Platelet 187 145 - 357 x10(3)/[facility] RDW Standard Deviation 39.2 36.0 - 45.0 fL [facility] RDW coefficient of variation 12.6 11.4 - 13.8 % [facility] Mean Platelet Volume 9.5 7.6 - 12.9 fL [facility] NRBC% auto 0.0 % [facility] NRBC Absolute 0.000 0.000 - 0.000 x10(3)/[facility] Blood 01/09/2024 2:58 PM EDT 01/09/2024 3:03 PM EDT Narrative Resulting Agency Comment Spec In Lab Zak Farmer MD HEMATOLOGY ORDERABL ES [facility] [address] * Basic Metabolic Panel (non-fasting) (01/09/2024 2:58 [...] MD CHEMISTRY ORDERABLE S [facility] [address] * Hepatic Function Panel (01/09/2024 2:58 PM [...] CHEMISTRY ORDERABLE S Performing Organization Address [facility] Co de Phone Number [facility] [address] * Prothrombin Time (01/09/2024 2:58 PM EDT) [...] HEMATOLOGY ORDERABL ES Performing Organization Address [facility] Co de Phone Number [facility] [address] * Type and Screen Future Surgery, [facility] SAME [facility] PRO[facility] ONLY) (01/09/2024 2:58 PM [...] BANK LAB ORDE RABLES Performing Organization Address City/[facility]/ZIP Co [place] [address] documented in this encounter Visit Diagnoses Diagnosis Nonrheumatic aortic valve stenosis Aortic valve disorders documented in this encounter Care Teams Pan Dumper Relationship Specialty Start Date End Date Vanessa Christian APRN PCP - General Family Medicine 10/21/23 05/26/24 documented as of this encounter
--- OUTSIDE RECORDS SUMMARY | 2024-07-14 10:09 | XMS_ITS | Encounter Summary ---
Author Organization [facility] [address] Care Team Providers Care Oracle [employer] Plm Consultant Name Role Phone Aparna Jordan MAURI Primary Care Provider [phone] Reason for Visit * Auth/Cert (Routine) Specialty [...] ARTERIAL GRAFT (WRVU 7.93) Hayder Graham MD [facility] [place] [address] [facility] Referral ID Status Reason Start Date Expiration Date Visits Re quested Visits Authorized [id number] 1 1 Encounter Details Date Type Department Care Team (Late st Contact Info) Description 02/17/2024 7:30 AM EDT - 02/17/2024 1:26 PM EDT Surgery [place] [id number] Hayder Graham MD [facility] [place] [address] ENDOSCOPIC HARVEST VEIN(S) FOR CABG (WRVU 0.31) Social History Tobacco Use Types Packs/Day Years Used Date Smoking Tobacco: Former Cigarettes Smokeless Tobacco: Never Comments:Quit 15 + years ago Alcohol Use Standard Drinks/Week Comments Yes 0 (1 standard drink = 0.6 oz pur e alcohol) rare [facility] Utilities Answer Date Recorded In the [...] Patient Age: 63 y.o. Birthdate: 1960 Language: Scottish Race: White Ethnicity: Not nor Admit Date: 02/17/2024 Discharge Date: 02/24/24 Attending Physician: Hayder Graham MD Follow-up Recommendations for Providers: Please continue routine management of cardiovascular risk factors including blood pressure, lipids,glucose, etc. Please note any changes to medications. Patient to follow up with PCP, Aparna Jordan APRN, in 1-2 weeks. Patient to follow up with Oss Architect, Neftali Ernandez MD , in 2 weeks. Patient to follow up with Cardiac Surgeon, Dr. Hayder Graham, with a chest x-ray, EKG, and Echo. Inpatient Provider Contact Information: [facility] Section of Cardiac Surgery [facility] [address] FAX [phone] Discharge Diagnoses (Hospital Problems) Primary Diagnoses: /CAD [...] insufficiency. He has glaucoma. He used to bacNovel SuperTV until about 15 years ago. He has undergone prior herniorrhaphy. 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 Major Procedures/Operations: 02/17/24 s/p avr/cabgx3 CABG x 3 JOSE->LAD SVG->dRCA SVG->OM1 EVH from LLE AVR with a 23 mm Inspiris Bioprosthesis Hospital Course: Karlos Garcia was admitted to [facility] on 02/17/2024 via the [...] Hayder Graham and/or the Cardiac Surgery Physician Band Nailer Team may be reached at . Antibiotic [...] Please refer to the card with the Welsh Heart Association Guidelines for more information. You [...] Dr. Hayder Graham. You may use a Coggon Track or treadmill but avoid any pulling [...] friends, go to a movie, go to congregational, etc. Heavy activities: No hunting, skiing, jogging, [...] should resume a low fat, low cholesterol, Welsh Heart Association Diet. Driving: No driving until [...] while being managed by your PCP and/or Oss Architect. For future medication refills, please refer to your PCP and/or Oss Architect after your discharge from our service. Thank you REMOVE CHEST TUBE SUTURES ON OR AFTER 03/02/24 Home oxygen therapy: N/A Follow up appointments: You should follow up with your PCP, Aparna Jordan APRN, in 1-2 weeks. Our office will schedule an appointment with your Oss Architect, Neftali Ernandez MD , in 2 weeks. You have an appointment with your Cardiac Surgeon, Dr. Hayder Graham, 4 weeks with a chest x-ray, EKG, and Echo before your appointment. Cardiac Rehabilitation: Karlos Garcia was seen regarding participation in the outpatient Phase 2Cardiac Rehabilitation at [facility]. The patient agrees to a referral to this program. The referral will be sent at discharge and the patient should be contacted by the Program within 1- 2 weeks from discharge. Future Appointments and Orders Future Orders Complete By Expires Echocardiogram Transthoracic [76089 CPT(R)] 03/26/2024 09/25/2024 Process Instructions: Scheduling Instructions: Questions: Where will study be performed?: [facility] Clinics Does the patient have Congenital Heart Disease?: Does patient require sedation?: Sedation rationale: XR Chest PA & Lateral (Generic) [75160 36614 Custom] 03/26/2024 09/25/2024 Process Instructions: Scheduling Instructions: Questions: Portable exam?: Reason for exam and clinical history: s/p avr/cabg Clinical information / jerome questions for radiologist: Stat read required?: Date of injury if applicable: Requested Time: Where will study be performed?: [facility] Radiology Referral to Cardiac Rehab [[id number] Custom] As directed Process Instructions: If no progress note charted, please enter Clinical details in comments. Scheduling Instructions: Questions: My question or request is: s/p AVR/CABG. Cardiac rehab at [facility]. Referral to Home Health [REF34 Custom] As directed Process Instructions: If no progress note charted, please enter Clinical details in comments. Scheduling Instructions: Comments: Please evaluate Karlos Garcia for admission to Home Health. [address] Phone Number: Date of : 1960 Inpatient DOCUMENTATION FOR VNA SERVICES (INCLUDING THOSE PATIENTS WITH MEDICARE COVERAGE REQUIRING HOME VNA SERVICES AND/OR HOSPICE SERVICES) PATIENT'S LOCATION: Karlos Garcia [address] [facility] [phone] Copyholder's Name: self/family In discussion with the attending physician, it is certified that this patient is under their care and that they, or a Nurse Practitioner, or Physician Band Nailer who is working directly with them, hada [...] for services as follows: HOME HEALTH AGENCY: [facility] [address] [place] [id number] RN orders: Cardiopulmonary assessment, incisional assessment, assess [...] issues please call the Cardiology Office at [phone] FOR MEDICARE ONLY: (please delete this section [...] above. Signed: NEFTALI MENON PA-C [facility] Section of Cardiac Surgery [facility] [address] FAX [phone] Date: 02/24/2024 CC: Aparna Jordan, MAURI Jordan, Aparna Sherman APRN [address] [place] [address] documented in this encounter Discharge Instructions * [...] Hayder Graham and/or the Cardiac Surgery Physician Band Nailer Team may be reached at . Antibiotic [...] Please refer to the card with the Welsh Heart Association Guidelines for more information. You [...] Dr. Hayder Graham. You may use a Coggon Track or treadmill but avoid any pulling [...] friends, go to a movie, go to congregational, etc. Heavy activities: No hunting, skiing, jogging, [...] should resume a low fat, low cholesterol, Welsh Heart Association Diet. Driving: No driving until [...] while being managed by your PCP and/or Oss Architect. For future medication refills, please refer to your PCP and/or Oss Architect after your discharge from our service. Thank you REMOVE CHEST TUBE SUTURES ON OR AFTER 03/02/24 Home oxygen therapy: N/A Follow up appointments: You should follow up with your PCP, Aparna Jordan APRN, in 1-2 weeks. Our office will schedule an appointment with your Oss Architect, Neftali Ernandez MD , in 2 weeks. You have an appointment with your Cardiac Surgeon, Dr. Hayder Graham, 4 weeks with a chest x-ray, EKG, and Echo before your appointment. Cardiac Rehabilitation: Karlos Garcia was seen regarding participation in the outpatient Phase 2Cardiac Rehabilitation at [facility]. The patient agrees to a referral to [...] 0600 and on the weekends please page [phone]. * Eric Barahona PA - 02/23/2024 9:27 [...] 0600 and on the weekends please page [phone]. * Tiffanie Owens, SCRAP DROP OPERATOR - 02/22/2024 2:48 PM EDT Physical Therapy [...] d/c for 10 days. 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 He works Precautions/Special Considerations: [...] LRAD and supervision Time IN / OUT: 8773-1455 Total Time: 30 minutes; TEFx2 Tiffanie Owens Pager: [phone] Physical Therapy Inpatient Rehabilitation Department * Romeo [...] 0600 and on the weekends please page [phone]. * Kelley Hinson SCRAP DROP OPERATOR - 02/21/2024 10:15 AM EDT Physical [...] d/c for 10 days. 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 He works Precautions/Special Considerations: [...] LRAD and supervision Time IN / OUT: 5046-0942 Total Time: 25 minutes; TEF 2 Kelley Hinson PTA Pager: [phone] Physical Therapy Inpatient Rehabilitation Department * Louisa [...] 0600 and on the weekends please page [phone]. * Kellye Hinson PTA - 02/20/2024 3:32 [...] at that time Kelley Hinson PTA Pager: [phone] Physical Therapy Inpatient Rehab Department * Louisa [...] 0600 and on the weekends please page [phone]. * Maris Benavides, PT - 02/19/2024 11:22 [...] d/c for 10 days. 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 Precautions/Special Considerations: [...] outlined inthis evaluation. MARIS BENAVIDES, PT Pager: [phone] Physical Therapy Inpatient Rehabilitation Department Time IN / OUT: 9369-5242 Total Time: 38 (eval) minutes; * Antonio [...] 0600 and on the weekends please page [phone]. * Minnie Begum PA - 02/18/2024 8:25 [...] 0600 and on the weekends please page [phone]. * Kim Ha RCP - 02/17/2024 2:25 [...] plan since last visit. Hayder Graham MD [phone] Source Note - Hayder Graham MD - [...] given written informed consent. Hayder Graham MD [phone] * Hayder Graham MD - 02/17/2024 7:00 [...] given written informed consent. Hayder Graham MD [phone] documented in this encounter Miscellaneous Notes * [...] for follow-up Home Health & Hospice, [address] [place] [address] Cardiac Rehab, [address] [place] [address] Transportation: family or friend will provide Functional status prior to admission: Independent Home Environment: Others in the home: alone. Current Living Arrangements: home/apartment/condo. Accessibility Concerns:a few steps to enter 1 floor home. Current Functional Ability: Assistive Person and Equipment DME used at home: none DME Needed at Discharge: N/A Patient is insured through: Primary Insurance: [email or web address] Payor: [facility] / Plan: [facility] PPO / Product Type: *No [...] pain managed with scheduled Tylenol. Worked with [email or web address]. Ambulated in the roque multiple times during [...] HOSPITAL Payor: [facility] / Plan: [facility] PPO / Product Type: *No Product type* / Secondary Insurance: N/A Last Physical Therapy Recommendation: home with home health (Str coming to stay for a week or two upon d/c) with to be determined (owns rolling walker, shower seat) Plan for discharge is: Home w/ Services Outpatient Agency/Support Group Needs: Homecare agency Home Health Services: Physical Therapy, Registered Nurse Agency Referrals: [facility] [address] [place] [address] Transportation: family or friend will provide Barriers to discharge: Discharge planning Plan going forward: Service Care Management will continue to follow and assist with discharge planning and coordination of care as indicated. Anticipated Date of Discharge: 02/22/2024 Rhett Bell RN RN/CM - Cellphone: [phone] Pager: [phone] Covering Service RN/CM * Plan of Care [...] Yang RN - 02/19/2024 10:44 AM EDT [facility] CARDIAC REHABILITATION Karlos Garcia was seen today regarding participation in the outpatient Phase 2 Cardiac Rehabilitation at [facility]. The patient agrees to a referral to [...] 180 days) Any patient receiving care in [place] must abide by [place] law. The hierarchy [...] steady place to sleep or slept in [facility] (including now)?: No In the past 12 months has the [employer], gas, oil, or water [employer] threatened to shut off services in your [...] confirmed as: [address] [facility] [address] Physical address: [address] [facility], [address] Social & Family Supports: All names listed [...] none noted Health/Prescription Coverage: Primary Insurance: [facility] Payor: [facility] / Plan: [facility] PPO / Product Type: *No Product type* / Secondary Insurance: N/A ; Prescription Coverage: Yes Preferred Pharmacy: [id number] [address] [place] Status: Patient is a : No Primary Care Provider confirmed: Aparna Jordan, MAURI [phone] Patient/Caregiver Goals of Treatment: dc to home Potential Needs for Transition of Care: home health care Agency Referrals: I have met with the patient to: discuss discharge planning needs. provide the [facility], Office of Care Management letter from the Military Lawyer pertaining to rehab referrals. provide a letter describing our affiliations within the [facility] and educate about their right to choose where referrals are sent. provide a list of Home Health Agencies / Durable Medical Equipment vendors which serve their preferred geographic area. provided patient with [facility] Star Quality Rating handout. They have requested referrals to: [facility] [address] [place] [address] Note routed to a Rn Mds Coordinator who will communicate referrals to facilities and [...] Reina Greene RN CM, BSN, CMGT-BC Ext [phone] * Plan of Care - Binta Trinidad [...] Operative Note Patient Name: Karlos Garcia : [id number] MR#: [id number] Case Date: 02/17/2024 Surgeon: Surgeon(s) and Role: * Hayder Graham MD - Primary * Neftali Menon PA - Physician Band Nailer Preoperative diagnosis: CAD Postoperative diagnosis: CAD, intraoperative [...] Mediastinal and Left pleural Disposition: [facility] Condition: doing well without problems Attestation: Case Date: 02/17/2024 I performed this procedure without the involvement of a resident. HAYDER GRAHAM MD 02/17/2024 * Op Note - Hayder Graham MD - 02/17/2024 8:20 AM EDT [facility] Operative Note Patient Name: Karlos Garcia : [id number] MR#: [id number] Case Date: 02/17/2024 Surgeon: Surgeons and Role: * Hayder Graham MD - Primary * Neftali Menon PA - Physician Band Nailer Preoperative diagnosis: CAD Postoperative diagnosis: CAD, intraoperative [...] Mediastinal and Left pleural Disposition: [facility] Procedure Description: The patient was brought [...] 3:40 PM EST Office Visit Cardiology at [address] [phone] Neftali Ernandez MD [facility] [place] [address] Scheduled Orders Name Type Priority Associated Diagnoses [...] Aortic Valve Open W Cardiopulmonary Bypass Homogrf/Stent (22480) Yes 02/17/2024 7:28 AM EDT CAD Cabg, Artery-Vein, Two (42944) Yes 02/17/2024 7:28 AM EDT CAD Cabg, Arterial, Single (54837) Yes 02/17/2024 7:28 AM EDT CAD Endoscopy W/Video-Asst Vein Gilbert, Cabg (63585) Yes 02/17/2024 7:28 AM EDT CAD POCT [...] ORDERABLE S [facility] [place] [address] * (ABNORMAL) Basic Metabolic Panel (non-fasting) (02/23/2024 [...] CHEMISTRY ORDERABLES [facility] [place] [address] * Potassium (02/22/2024 4:30 AM EDT) Potassium [...] ORDERABLE S [facility] [place] [address] * (ABNORMAL) Basic Metabolic Panel (non-fasting) (02/21/2024 [...] [facility] Comment:Add-on request. Samwilly le too [...] CHEMISTRY ORDERABLES [facility] [place] [address] * Lactate, whole blood, send to lab ([facility]) (02/21/2024 9:45 AM EDT) [facility] Lactate WB 2.0 0.5 - 2.2 mmol/L [facility] Blood 02/21/2024 9:45 AM EDT 02/21/2024 9:52 AM EDT Narrative Resulting Agency Comment Spec In Lab Hayder Graham MD CHEMISTRY ORDERABLE S Performing Organization Address [facility] Co de Phone Number [facility] [place] [address] * (ABNORMAL) Hepatic Function Panel (02/21/2024 9:45 AM EDT) [facility] Protein, Total 5.7(L) 6.1 - [...] ORDERABLE S [facility] [place] [address] * Lipase (02/21/2024 9:45 AM EDT) Lipase 56 0 - 60 unit/L [facility] Blood 02/21/2024 9:45 AM EDT 02/21/2024 9:52 AM EDT Narrative Resulting Agency Comment Spec In Lab Hayder Graham MD CHEMISTRY ORDERABLE S [facility] [place] [address] * Amylase (02/21/2024 9:45 AM EDT) Amylase 69 28 - 100 unit/L [facility] Blood 02/21/2024 9:45 AM EDT 02/21/2024 9:52 AM EDT Narrative Resulting Agency Comment Spec In Lab Hayder Graham MD CHEMISTRY ORDERABLE S Performing Organization Address City/[facility]/ZIP Co de Phone Number [facility] [place] [address] * Potassium (02/21/2024 3:08 AM EDT) Potassium [...] ORDERABLE S [facility] [place] [address] * XR Chest PA & Lateral (Generic) (02/20/2024 10:19 AM EDT) WORKSTATION ID [id number] [facility] Anatomical Region Laterality Modality [...] questions please contact the health health care marketing specialist that requested your imaging first. ? Electronically signed by: Rogerio Cruz MD, [facility] ??([phone]), at 02/20/2024 1:11 PM Narrative 02/20/2024 1:11 PM EDT EXAMINATION: XR CHEST PA AND LATERAL (GENERIC) CLINICAL HISTORY: s/p AVR/CABGx3 TECHNIQUE: PA and lateral views of the chest COMPARISON: 02/17/2024 FINDINGS: Support devices: Interval removal of [place]-Kaila catheter, endotracheal tube and mediastinal chest tubes The cardiac silhouette is stable status post median sternotomy, CABG and aortic valve replacement. There are small pleural effusions. No pneumothorax. Procedure Note Rogerio Cruz MD - 02/20/2024 EXAMINATION: XR CHEST PA AND LATERAL (GENERIC) CLINICAL HISTORY: s/p AVR/CABGx3 TECHNIQUE: PA and lateral views of the chest COMPARISON: 02/17/2024 FINDINGS: Support devices: Interval removal of [place]-Kaila catheter, endotracheal tubeand mediastinal chest tubes The [...] have questions please contactthe health health care marketing specialist that requested your imaging first. Electronically signed by: Rogerio Cruz MD, [facility]([phone]), at 02/20/2024 1:11 PM Hayder Graham MD IMG DX ORDERABLES * Scan, Peripheral Blood (02/20/2024 4:23 AM EDT) Pathologist [facility] Plat estimate Decreased [facility] RBC Morphology Normal [facility] Blood 02/20/2024 4:23 AM EDT 02/20/2024 4:42 AM EDT Narrative Resulting Agency Comment Spec In Lab Minnie FRENCH HEMATOLOGY CECILIO ALEMAN [facility] [place] [phone] * (ABNORMAL) Differential, Automated (02/20/2024 4:23 AM EDT) [facility] Neutrophil % 81.7 % [facility] Neutrophil Absolute 10.37(H) 1.70 - 6.10 x10(3)/mc L [facility] Lymph % 7.4 % [facility] Lymphocytes Abs 0.9 0.9 - 3.2 x10(3)/mc L [facility] Monocyte % 9.7 % [facility] Monocyte Abs 1.2(H) 0.3 - 0.9 x10(3)/mc L [facility] Eos % 0.1 % [facility] Eosinophils Abs 0.0 0.0 - 0.4 x10(3)/mc L [facility] Basophil % 0.2 % [facility]IVERSITY [...] Comment Spec In Lab Minnie FRENCH HEMATOLOGY CECIILO ALEMAN [facility] [place] [address] * (ABNORMAL) Hemogram (02/20/2024 4:23 AM EDT) White Blood Cell 12.7(H) 4.0 - 9.5 x10(3)/[facility] Red Blood Cell 4.26(L) 4.58 - 5.54 x10(6)/ L [facility] Hemoglobin [...] [facility] NRBC% auto 0.0 % [facility] NRBC Absolute 0.000 0.000 - 0.000 x10(3)/mc L [facility] Blood 02/20/2024 4:23 AM EDT 02/20/2024 4:42 AM EDT Narrative Resulting Agency Comment Spec In Lab Minnie FRENCH HEMATOLOGY CECILIO ALEMAN [facility] [place] [address] * (ABNORMAL) Basic Metabolic Panel (non-fasting) (02/20/2024 4:23 AM EDT) Glucose 113 65 - 199 mg/dL [facility] Comment:Diabetes: >=200 mg/d L plus symptoms Blood Urea Nitrogen 20 10 - 20 mg/dL [facility] Comment:result rechecked-ND Creatinine 0.71(L) 0.80 - 1.50 mg/dL [facility] [...] MD CHEMISTRY ORDERABLE S Performing Organization Address [facility] Co de Phone Number [facility] [place] [address] * Potassium (02/19/2024 3:57 AM EDT) Potassium [...] MD CHEMISTRY ORDERABLE S Performing Organization Address [facility] Co de Phone Number [facility] [place] [address] * POCT Glucose (02/18/2024 8:24 AM EDT) Glucose, POC 157 65 - 199 mg/dL [facility] Comment: Supplemental ranges: <140 mg/dL before meals <180 mg/dL all other times of the day Blood 02/18/2024 8:24 AM EDT 02/18/2024 8:24 AM EDT Hayder Graham MD POINT OF CARE TEST ORDERABLES [facility] [place] [address] * Scan, Peripheral Blood (02/18/2024 1:40 AM EDT) Pathologist [facility] Plat estimate Decreased [facility] RBC Morphology Normal [facility] Blood 02/18/2024 1:40 AM EDT 02/18/2024 1:56 AM EDT Narrative Resulting Agency Comment Spec In Lab Neftali FRENCH HEMATOLOGY ORDER OLE Performing Organization Address City/[facility]/ZIP Co de Phone Number [facility] [place] [address] * (ABNORMAL) Differential, Automated (02/18/2024 1:40 AM EDT) [facility] Neutrophil % 87.1 % [facility] Neutrophil Absolute 15.03(H) 1.70 - 6.10 x10(3)/mc L [facility] Lymph % 3.0 % [facility] Lymphocytes Abs 0.5(L) 0.9 - 3.2 x10(3)/mc L [facility] Monocyte % 9.1 % [facility] Monocyte Abs 1.6(H) 0.3 - 0.9 x10(3)/mc L [facility] Eos % 0.0 % [facility] Eosinophils Abs 0.0 0.0 - 0.4 x10(3)/mc L [facility] Basophil % 0.2 % UNIVERSITY [...] ORDER OLE [facility] [place] [address] * (ABNORMAL) Hemogram (02/18/2024 1:40 AM EDT) [...] [facility] NRBC% auto 0.0 % [facility] NRBC Absolute 0.000 0.000 - 0.000 x10(3)/mc L [facility] Blood 02/18/2024 1:40 AM EDT 02/18/2024 1:56 AM EDT Narrative Resulting Agency Comment Spec In Lab Neftali FRENCH HEMATOLOGY ORDER OLE [facility] [place] [address] * (ABNORMAL) Basic Metabolic Panel (non-fasting) (02/18/2024 [...] ORDERABLE S [facility] [place] [address] * (ABNORMAL) Troponin (02/18/2024 1:40 AM EDT) [...] troponin value can be found in the [facility] Laboratory Test Catalog Troponin - [facility] Laboratory Test Catalog Reference: Fourth [place] Definition of Myocardial Infarction. Journal of the [place] [employer] 2018;72:7528-0252 Blood 02/18/2024 1:40 AM EDT 02/18/2024 1:56 AM EDT Narrative Resulting Agency Comment Spec In Lab Hayder Graham MD CHEMISTRY ORDERABLE S Performing Organization Address [facility] Co de Phone Number [facility] [place] [address] * POCT Glucose (02/17/2024 8:13 PM EDT) Glucose, POC 142 65 - 199 mg/dL [facility] Comment: Supplemental ranges: <140 mg/dL before meals <180 mg/dL all other times of the day Blood 02/17/2024 8:13 PM EDT 02/17/2024 8:13 PM EDT Hayder Graham MD POINT OF CARE TEST ORDERABLES Performing Organization Address [facility] de Phone Number [facility] [place] [address] * POCT Glucose (02/17/2024 5:42 PM EDT) Glucose, POC 160 65 - 199 mg/dL [facility] Comment: Supplemental ranges: <140 mg/dL before meals <180 mg/dL all other times of the day Blood 02/17/2024 5:42 PM EDT 02/17/2024 5:42 PM EDT Hayder Graham MD POINT OF CARE TEST ORDERABLES Performing Organization Address [facility] Co de Phone Number [facility] [place] [address] * Hemoglobin (02/17/2024 5:42 PM EDT) Hemoglobin 13.7 13.7 - 16.5 g/dL [facility] Blood 02/17/2024 5:42 PM EDT 02/17/2024 6:10 PM EDT Narrative Resulting Agency Comment Spec In Lab Hayder Graham MD HEMATOLOGY ORDERABL ES Performing Organization Address [facility]/ZIP Co de Phone Number [facility] [place] [address] * Potassium (02/17/2024 5:42 PM EDT) Pathologist [...] MD CHEMISTRY ORDERABLE S Performing Organization Address [facility] Co de Phone Number [facility] [place] [address] * (ABNORMAL) BLOOD GAS 2 ARTERIAL (02/17/2024 [...] OF CARE TEST ORDERABLES Performing Organization Address City/State/[facility] Co de Phone Number [facility] [place] [address] * XR Chest One View (02/17/2024 1:44 PM EDT) [employer] WORKSTATION ID [id number] RAD Anatomical Region Laterality Modality Chest N/A Digital Radiogra phy Impressions 02/17/2024 2:12 PM EDT 1. ??No definite pleural fluid collection or pneumothorax. 2. ??Right IJ Coeburn-Kaila catheter tip terminates in a descending branch [...] questions please contact the health health care marketing specialist that requested your imaging first. ? Electronically signed by: Denzel Hankins MD, [facility] ??([phone]), at 02/17/2024 2:12 PM Narrative 02/17/2024 2:12 PM EDT EXAMINATION: XR CHEST ONE VIEW CLINICAL HISTORY: s/p avr/cabg eval effusions TECHNIQUE: 1 view of the chest COMPARISON: Chest x-ray 01/09/2024, chest CT 02/03/2024 FINDINGS: ET tube tip terminates 5.2 cm above the carlos. Right IJ Co[place]urn-Kaila catheter tip terminates in a descending branch [...] 5.2 cm above the carlos. Right IJ Coeburn-Ganzcatheter tip terminates in a descending branch of [...] fluid collection or pneumothorax. 2. Right IJ [place]urn-Kaila catheter tip terminates in a descending branch ofthe right pulmonary artery. Suggest catheter retraction. 3. Additional support lines and tubes as above. Thank you for letting us participate in the care of this patient. If youare a health care provider and have any questions regarding this report,please contact the number below. For patients who have questions please contactthe health health care marketing specialist that requested your imaging first. Electronically signed by: Denzel Hankins MD, [facility]([phone]), at 02/17/2024 2:12 PM Hayder Graham MD [...] TEST ORDERABLES [facility] [place] [address] * (ABNORMAL) Coox2 (02/17/2024 1:21 PM EDT) [...] TEST ORDERABLES [facility] [address] [place] [address] * (ABNORMAL) BLOOD GAS 2 ARTERIAL (02/17/2024 [...] OF CARE TEST ORDERABLES Performing Organization Address [facility] Co de Phone Number [facility] [place] [address] * (ABNORMAL) Fibrinogen (02/17/2024 12:10 PM EDT) [...] MD HEMATOLOGY ORDERABLE S Performing Organization Address [facility] Co de Phone Number [facility] [place] [address] * (ABNORMAL) Thrombin time (02/17/2024 12:10 PM [...] MD HEMATOLOGY ORDERABLE S Performing Organization Address [facility] Co de Phone Number [facility] [place] [address] * APTT (02/17/2024 12:10 PM EDT) Partial [...] MD HEMATOLOGY ORDERABLE S Performing Organization Address [facility]/ZIP Co de Phone Number [facility] [place] [address] * (ABNORMAL) Prothrombin Time (02/17/2024 12:10 PM [...] ORDERABLE S [facility] [place] [address] * (ABNORMAL) Hemogram (02/17/2024 12:10 PM EDT) [...] [facility] NRBC% auto 0.0 % [facility] NRBC Absolute 0.000 0.000 - 0.000 x10(3)/mc L [facility] Blood 02/17/2024 12:1 0 PM EDT 02/17/2024 12:19 PM EDT Narrative Resulting Agency Comment Spec In Lab Tara York MD HEMATOLOGY ORDERABLE S [facility] [place] [address] * (ABNORMAL) BLOOD GAS 2 ARTERIAL (02/17/2024 [...] [facility] Comment: Noted by instrument setter. Please note: Patients with WBC >100,000 may [...] TEST ORDERABLES [facility] [place] [address] * (ABNORMAL) BLOOD GAS 2 ARTERIAL (02/17/2024 [...] [facility] Comment: Noted by instrument setter. Please note: Patients with WBC >100,000 may [...] OF CARE TEST ORDERABLES Performing Organization Address [facility]/ZIP Co de Phone Number [facility] [place] [address] * (ABNORMAL) Hemoglobin and Hematocrit, blood (02/17/2024 [...] MD HEMATOLOGY ORDERABL ES Performing Organization Address [facility]/ZIP Co de Phone Number [facility] [place] [address] * (ABNORMAL) Platelet count (02/17/2024 11:04 AM EDT) Platelet 106(L) 145 - 357 x10(3)/mc L [facility] Immature Plt % 1.6 0.0 - 7.4 % [facility] Comment: Limitation of the Immature Platelet Fraction (IPF)-May be less reliable when the platelet count is less than 90n207/uL due to statistical imprecision. The IPF value [...] in a decreased state of production. References: [employer] The Clinical Value of the Immature Platelet Fraction (IPF) in Cell Recovery Document Number [id number] 03/2011 [employer] The Role of the Immature Platelet Fraction (IPF) in the Differential Diagnosis of Thrombocytopenia, Document [id number] V002/15/14 P002/17 Blood 02/17/2024 11:0 4 AM EDT 02/17/2024 11:12 AM EDT Narrative Resulting Agency Comment Spec In Lab Hayder Graham MD HEMATOLOGY ORDERABL ES Performing Organization Address City/State/[facility] Co de Phone Number [facility] [place] [address] * (ABNORMAL) Fibrinogen (02/17/2024 11:04 AM EDT) [...] ORDERABL ES [facility] [place] [address] * (ABNORMAL) BLOOD GAS 2 ARTERIAL (02/17/2024 [...] TEST ORDERABLES [facility] [place] [address] * (ABNORMAL) BLOOD GAS 2 ARTERIAL (02/17/2024 [...] TEST ORDERABLES [facility] [place] [id number] * Surgical Pathology Report (02/17/2024 10:01 AM EDT) Final Diagnosis [id number] ? Location: [facility]; [facility]; The signing pathologist has (i) examined the relevant preparation(s) for the specimen(s) and (ii) rendered or confirmed the diagnosis(es). . ?Surgical Pathology DIAGNOSIS Aortic valve leaflets, excision: Valve leaflets with myxoid degeneration, nodular fibrosis and dystrophic calcifications. Electronically signed by: ?Lindsay FERNANDEZ, Livier Gonzalez Verified: ??02/24/2024 13:49 ??Pathologist Performed at: ??-[facility] Dept. of Pathology, [place] [address] Military Lawyer: Job Brewer MD, FCAP, ??CLIA Certificate: [id number] SPECIMEN(S) SUBMITTED A - Aortic Valve Leaflets, [...] Sections Processing Blocks submitted for decalcification: A1. Gear Machinist sections in 1 cassette labeled A1. ??ajw 02/24/2024 1:49 PM EDT [facility] AORTIC STRUCTURE / Unknown 02/17/2024 10:01 AM EDT 02/17/2024 10:01 AM EDT Hayder Graham MD PATHOLOGY/CYTOLOGY ORDERABLES Performing Organization Address City/[facility]/ZIP Co de Phone Number [facility] [place] [address] * Specimen to Pathology (02/17/2024 10:01 AM EDT) AP Specimen 02/17/2024 10:0 1 AM EDT 02/17/2024 10:01 AM EDT Narrative [facility] - 02/17/2024 10:01 AM EDT Specimen requisition ordered. ??Separate Pathology report to follow Hayder Graham MD PATHOLOGY/CYTOLOGY ORDERABLES Performing Organization Address City/[facility]/ZIP Co de Phone Number [facility] [place] [address] * (ABNORMAL) BLOOD GAS 2 ARTERIAL (02/17/2024 [...] TEST ORDERABLES [facility] [place] [address] * (ABNORMAL) BLOOD GAS 2 VENOUS (02/17/2024 9:34 AM EDT) pH, Venous 7.22(Criti marquez) 7.32 - 7.42 [facility] Comment:Noted by instrument setter. PCO2, Venous 43 41 - 51 mmHg [facility] Comment:Noted by instrument setter. PO2, Venous 57(H) 25 - 40 mmHg [facility] Comment:Noted by instrument setter. Bicarbonate, Venous 17.1 mmol/L [facility] Comment:Noted by instrument setter. Base Excess, Venous -10.6 mmol/L [facility] Comment:Noted by instrument setter. Hgb Blood Gas 11.2(L) 13.7 - 16.5 g/dL [facility] Comment:Noted by instrument setter. Oxyhemoglobin, Venous 86.5 % [facility] Comment:Noted by instrument setter. Carboxyhemoglob in, Venous 0.3 % [facility] Comment: Noted by instrument setter. Nonsmokers: 0.5-1.5% COHB Smokers: Variable, but usually less than 10% Toxic: 20-30% COHB Lethal: Greater than 60% COHB Methemoglobin, Venous 0.0 <=1.5 % [facility] Comment:Noted by instrument setter. Na Whole Blood 156(H) 135 - 145 mmol/L [facility] Comment:Noted by instrument setter. K Whole Blood 5.5(H) 3.5 - 5.0 mmol/L [facility] Comment: Noted by instrument setter. Please note: Patients with WBC >100,000 may have falsely elevated Potassium levels. Contact the Clinical Chemistry Laboratory if there are any questions. ICa Whole Blood 1.03(L) 1.15 - 1.33 mmol/L [facility] Comment: Noted by instrument setter. Note: ??Total bilirubin higher than 20 mg/dL may lead to falsely low ionized calcium. CL Whole Blood 100 98 - 107 mmol/L [facility] Comment:Noted by instrument setter. Gluc Whole Bld 132 65 - 199 mg/dL [facility] Comment: Noted by instrument setter. Diabetes: >=200 mg/dL plus symptoms Lactate WB 1.0 0.5 - 2.2 mmol/L [facility] Comment:Noted by instrument setter. Blood Gas Source Venous [facility] Blood 02/17/2024 9:34 AM EDT 02/17/2024 9:34 AM EDT Hayder Graham MD POINT OF CARE TEST ORDERABLES [facility] [place] [address] * (ABNORMAL) BLOOD GAS 2 ARTERIAL (02/17/2024 [...] OF CARE TEST ORDERABLES Performing Organization Address [facility] Co de Phone Number [facility] [place] [address] * POCT Glucose (02/17/2024 6:38 AM EDT) Glucose, POC 98 65 - 199 mg/dL [facility] Comment: Supplemental ranges: <140 mg/dL before meals <180 mg/dL all other times of the day Blood 02/17/2024 6:38 AM EDT 02/17/2024 6:38 AM EDT Hayder Graham MD POINT OF CARE TEST ORDERABLES Performing Organization Address [facility] Co de Phone Number [facility] [place] [address] * Transesophageal Echo/OR (02/17/2024 6:33 AM EDT) [...] Routine 08 (Given - Provider: Reilly N Ouaquaga, RN) 0907 (Given - Provider: Mishel Merrill, [...] Routine documented in this encounter Care Teams [employer] Consultant Relationship Specialty Start Date End Date Aparna Jordan APRN PCP - General Family Medicine 10/21/23 05/26/24 documented as of this encounter
--- OUTSIDE RECORDS SUMMARY | 2024-07-14 10:09 | XMS_ITS | Encounter Summary ---
Author Organization [facility] Address [facility] [place] [address] Care Team Providers Care Foil Spinner Name Role Phone Vanessa Christian PITCH GATHERER Primary Care Provider [phone] Reason for Referral * Diagnostic Test (Routine) - Closed Specialty Diagnoses / Procedures Referred By Contac t Referred To Contact Radiology Diagnoses Nonrheumatic aortic valve stenosis Procedures CT Chest wo Contrast (Generic) Louisa Reid PA [facility] [address] [facility] [place] [address] Referral ID Status Reason Start Date Expiration Date V isits Requested Visits Authorized [id number] Closed Specialty Service Requested 01/10/2024 07/11/2025 1 1 Encounter Details Date Type Department Care Team (Late st Contact Info) Description 01/09/2024 [place] [address] Zak Farmer MD [facility] [place] [address] Nonrheumatic aortic valve stenosis Social History Tobacco [...] PM EST Office Visit Cardiology at [address] [place] [address] Neftali Ernandez MD [facility] [place] [address] documented as of this encounter Results * CT Chest wo Contrast (Generic) (02/03/2024 7:44 AM EDT) WORKSTATION ID [id number] RAD Anatomical Region Laterality Modality Chest Computed [...] who have questions please contact the health children's zoo caretaker that requested your imaging first. ? Electronically signed by: Rogerio Wright MD, [facility] ([phone]), at 02/03/2024 10:00 AM Narrative 02/03/2024 10:00 [...] nodule along the minor fissure (series [id number]) and a 8 mm right lower lobe [...] patients who have questions please contactthe health children's zoo caretaker that requested your imaging first. Electronically signed by: Rogerio Wright MD, [facility]([phone]), at 02/03/2024 10:00 AM Zak Farmer MD IMG CT ORDERABLES documented in this encounter Visit Diagnoses Diagnosis Nonrheumatic aortic valve stenosis Aortic valve disorders Nonrheumatic aortic valve stenosis Aortic valve disorders documented in this encounter Care Teams Foil Spinner Relationship Specialty Start Date End Date Vanessa Christian APRN PCP - General Family Medicine 10/21/23 05/26/24 documented as of this encounter
--- OUTSIDE RECORDS SUMMARY | 2024-07-14 10:09 | XMS_ITS | Encounter Summary ---
Author Organization [facility] [place] [address] Care Team Providers Care Recoil Spring Winder Name Role Phone Vanessa Christian APRN Primary Care Provider [phone] Encounter Details Date Type Department Care Team [...] 3:40 PM EST Office Visit Cardiology at [address] [place] [phone] Neftali Ernandez MD [facility] [place] [address] documented as of this encounter Visit Diagnoses Not on filedocumented in this encounter Care Teams Recoil Spring Winder Relationship Specialty Start Date End Date Vanessa Christian APRN PCP - General Family Medicine 10/21/23 05/26/24 documented as of this encounter
--- OUTSIDE RECORDS SUMMARY | 2024-07-14 10:09 | XMS_ITS | Encounter Summary ---
Author Organization [facility] [place] [address] Care Team Providers Care Supervisor Communications And Signals Name Role Phone Vanessa Christian MAURI Primary Care Provider [phone] Encounter Details Date Type Department Care Team (Late st Contact Info) Description 01/10/2024 Orders [place] [id number] Lawson Napoles PA [facility] [place] [address] Screening for cardiovascular condition; Aortic valve stenosis, [...] 3:40 PM EST Office Visit Cardiology at [address] [place] [phone] Neftali Ernandez MD [facility] [place] [address] documented as of this encounter Visit Diagnoses Diagnosis Screening for cardiovascular condition Screening for other and unspecified cardiovascular conditions Aortic valve stenosis, etiology of cardiac valve disease unspecified documented in this encounter Care Teams Supervisor Communications And Signals Relationship Specialty Start Date End Date Vanessa Christian APRN PCP - General Family Medicine 10/21/23 05/26/24 documented as of this encounter
--- OUTSIDE RECORDS SUMMARY | 2024-07-14 10:09 | XMS_ITS | Encounter Summary ---
Author Organization [facility] Address [facility] [place] [id number] Care Team Providers Care Spiral Spring Winder Name Role Phone Vanessa Christian MAURI Primary Care Provider [phone] Reason for Referral * Consultation (Routine) - Closed Specialty Diagnoses / Procedures Referred By Contac t Referred To Contact Cardiac Surgery Diagnoses Nonrheumatic aortic valve stenosis significant - TAVR ( defers to Card Surg d/t age) Errol Loya MD [facility] [place] [address] Zak Farmer MD [facility] CARDIOTHORACIC [place] [address] Referral ID Status Reason Start Date Expiration Date V isits Requested Visits Authorized [id number] Closed Consult, Test & Treat 10/21/2023 10/20/2024 1 1 Reason for Visit * Reason Comments Chest Pain Shortness of Breath Aortic Stenosis Encounter Details Date Type Department Care Team (Late st Contact Info) Description 10/21/2023 1:20 PM EST Office Visit Cardiology at [address] [phone] Errol Loya MD [facility] [address] [place] [address] Nonrheumatic aortic valve stenosis Social History Tobacco [...] Problem List Diagnosis Aortic stenosis [facility] VITA 0.8-0.9 cm2 (MG 28 mmHg, DOI 3.6 m/s, SVI 35 cc/m2). Trace regurgitation. Normal bi-v s/f, no other valve findings Gastroesophageal reflux Nevus of face Right yarsanism Hypertension HLD (hyperlipidemia) MEDICATIONS: Current Outpatient Medications [...] the meantime will refer to T at [facility] for further evaluation. Logistics [...] the meantime will refer to T at [facility] for further evaluation. Logistics [...] PM EST Office Visit Cardiology at [address] [place] [phone] Errol Loya MD [facility] [place]IOLOG[place] [address] Scheduled Referrals Name Type Priority Associated Diagnoses Order Schedule Amb Referral to Structural Heart Outpatient Referral Routine Nonrheumatic aortic valve stenosis Ordered: 10/21/2023 documented as of this encounter Visit Diagnoses Diagnosis Nonrheumatic aortic valve stenosis Aortic valve disorders documented in this encounter Care Teams Spiral Spring Winder Relationship Specialty Start Date End Date Vanessa Christian APRN PCP - General Family Medicine 10/21/23 05/26/24 documented as of this encounter
--- OUTSIDE RECORDS SUMMARY | 2024-07-14 10:09 | XMS_ITS | Encounter Summary ---
Author Organization [facility] [place] [address] Care Team Providers Care Auctioneer Automobile Name Role Phone Vanessa Christian MAURI Primary Care Provider [phone] Reason for Visit * Auth/Cert (Routine) Specialty [...] Dickinson MD [facility] [place] [address] [facility] Referral ID Status Reason Start Date Expiration Date Visits Re quested Visits Authorized [id number] 1 1 Encounter Details Date Type Department Care Team (Late st Contact Info) Description 02/03/2024 10:00 AM EDT - 02/03/2024 11:00 AM EDT [place] [address] Saira Lua MD [facility] [place] [address] CARDIAC CATHETERIZATION Social History Tobacco Use Types [...] lbs Follow-up Visits Follow up with your housekeeping aide in 2-4 weeks Access Site 'Black and Blue' and tenderness is expected during the first week Call if you noted a mass (lump) greater than the size of a ellis Call Office with any Questions and if you have any of the following Clarence Lane M.D Interventional Operations Processor Friction Welding Machine Operator #: [phone] * Attachments The following attachments cannot be sent through Care Everywhere. * CAD (Coronary Artery Disease): General Info (Guamanian) * Coronary Angiogram: Post-op (Guamanian) documented in this encounter Medications at Time [...] Lane MD - 02/03/2024 11:48 AM EDT [facility] Interventional Cardiology Adult Pre-Procedure H&P Update: Cardiac Catheterization Karlos Anthony [id number] 1960 Chief Complaint: Aortic stenosis HPI: Mr. [...] is inthe chart Clarence Lane MD Interventional Operations Processor 02/03/24 11:48 AM documented in this encounter Miscellaneous Notes * Brief Op Note - Clarence Lane MD - 02/03/2024 12:51 PM EDT Preliminary Cardiac Catheterization Procedure Note: Patient Name: Karlos Anthony : [id number] MR#: [id number] Case Date: 02/03/2024 Friction Welding Machine Operator: Surgeon(s) and Role: * Saira [...] PM EST Office Visit Cardiology at [address] [address] Neftali Ernandez MD [facility] [place] [address] Scheduled Orders Name Type Priority Associated Diagnoses [...] Modality Other Narrative 02/12/2024 3:47 PM EDT ?[facility] ? Cardiac Catheterization/Intervention Report ? Patient Name: Patenaude, Karlos ? Procedure Date: 02/03/2024 ? A #: [id number] ? Primary Physician: Saira Lua ? Case #: [id number] ? File Name: [id number] ? Catheterization Order Number: [id number] ? [facility] ? Final Report [place], [place] ? Patient Name: ? Karlos Patenaude ? ID#: ?[id number] ? : ?1960 ? Procedure Date: ? [...] Procedure Note Saira Lua MD - 02/12/2024 [facility] Cardiac Catheterization/Intervention Report Patient Name: Karlos Anthony Procedure Date: 02/03/2024 A #: [id number] Primary Physician: Saira Lua Case #: [id number] File Name: [id number] Catheterization Order Number: [id number] [facility] FinalReport [place], [place] Patient Name: Karlos Anthony ID#:[id number] :1960 Procedure Date: February 03, 2024 Case [...] as ASA Class III. The [facility] clinical frailty scale is 3: Managing [...] (Bezet) 372 ms MUSE SYSTEM Calculated P [place] 59 degrees MUSE SYSTEM Calculated R [place] 34 degrees MUSE SYSTEM Calculated T [place] 63 degrees MUSE SYSTEM INTERPRETATION Sinus bradycardia [...] MD) documented in this encounter Care Teams Auctioneer Automobile Relationship Specialty Start Date End Date Vanessa Christian APRN PCP - General Family Medicine 10/21/23 05/26/24 documented as of this encounter
--- OUTSIDE RECORDS SUMMARY | 2024-07-14 10:09 | XMS_ITS | Data Portability ---
Author Organization [place] - [facility] Address [address] [place] [address] Care Team Providers Care Activity Therapy Teacher Name Role Phone APARNA JORDAN Primary Care Provider SOFIA MCALLISTER Dentist Assessment No assessment recorded. Plan of Treatment Reminders Order Date Submit Date Provider Last Modified By Organization Details Last Modified Time Details Appointments None recorded . Lab magnesiu m, serum or plasma 024 12/18/19 24 [id number] [facility] (Registration ), [address] [place] [address] [place], [address], 4 14:25:25 BMP, serum or plasma 024 12/18/19 24 [facility] (Registration ), [address] [place] [address] [place], [address], 4 14:25:24 Referral None recorded . Procedures None recorded . Surgeries None recorded . Imaging None recorded . Medication Orders None recorded . Patient TargetsNo targets recorded. Patient Instructions Encounter Date Encounter Id Patient Instructions Last Modified By Organization Details Last Modified Time 09/19/2023 [id number] SCHEDULE FOLLOW UP IN 3 MONTHS IF YOU DONT HEAR FROM THE CARDIOLOGY DEPT THIS WEEK CALL [facility] ABA THERAPIST AND LET THEM KNOW IF YOUR BREATHING GETS WORSE- GO TO THE ER, DONT OVER DO THINGS PHYSICALLY EXPECT A CALL FROM SARA ZAFAR RE: UPDATING YOUR POWER OF MAGNETIC PROSPECTOR (NEED 2 WITNESSED SIGNATURES) Not available 09/19/2023 09:25:07 12/18/2023 [id number] Karlos: expect a call from the STructural heart team at [facility] drink at least 6 glasses of water a day. checking kidney function and magnesium labs today will mail home. follow up in 3 months for BPH, Aortic stenosis. 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 for Referral Multimedia Technician Referral for Roland ateral hearing loss Referring Physician: Aparna Jordan, Family Medicine, Encounter Date: 02/26/2024 Results Created Date Observation Date Name Description Value Unit Range Abnormal Flag Note LastModifiedBy Organization Detail LastModifiedTime 12/18/19 24 12/18/2023 LASIC METAB OLIC PANEL calcium 9.3 mg/dL 8.5-10 .1 normal Not Available [address] [place] [facility] [place], [address] 12/18/2023 17:09:55 12/18/19 24 12/18/2023 LASIC METAB OLIC PANEL glucose 90 mg/dL 74-106 normal Not Available Baljit montemayor [address] [place], [address] 12/18/2023 17:09:55 12/18/19 24 12/18/2023 LASIC METAB OLIC PANEL BUN 14 mg/dL 7-18 normal Not Available Baljit montemayor [address] [facility] [place], [address] 12/18/2023 17:09:55 12/18/19 24 12/18/2023 LASIC METAB OLIC PANEL creatinine 1.0 mg/dL 0.70-1 .30 normal Not Available [address] [facility] [place], [address] 12/18/2023 17:09:55 12/18/19 24 12/18/2023 LASIC METAB [...] young er-ag ed adult s. Not Available [address] [place], [address] 12/18/2023 17:09:55 12/18/19 24 12/18/2023 LASIC METAB OLIC PANEL sodium 139 mmol/ L 136-14 5 normal Not Available [address] [place], [address] 12/18/2023 17:09:55 12/18/19 24 12/18/2023 LASIC METAB OLIC PANEL potassium 4.9 mmol/ L 3.5-5. 1 normal Not Available [address] [place], [address] 12/18/2023 17:09:55 12/18/19 24 12/18/2023 LASIC METAB OLIC PANEL chloride 104 mmol/ L 98-107 normal Not Available [address] [place], [address] 12/18/2023 17:09:55 12/18/19 24 12/18/2023 LASIC METAB OLIC PANEL CO2 30.9 mmol/ L 21.0-3 2.0 normal Not Available [address] [place], [address] 12/18/2023 17:09:55 12/18/19 24 12/18/2023 LASIC METAB OLIC PANEL anion gap 4.1 mmol/ L 3-11 normal Not Available [address] [place], [address] 12/18/2023 17:09:55 12/18/19 24 12/18/2023 MAGNE SIUM magnesium 1.8 mg/dL 1.8-2. 4 normal Not Available [address] [place], [address] 12/18/2023 17:09:56 09/11/20 23 12/05/2022 trans -thor acic echoc ardio gram (TTE) (PROC ) No observ ation record ed. [email or web address] [facility] Xray [address] [place], [address], 09/13/2023 09:29:52 09/11/20 23 06/01/2022 XR, hip, unila teral No observ ation record ed. [email or web address] Not Available 2022 09:29:19 09/11/20 23 12/06/2019 US, echoc ardio gram No observ ation record ed. [email or web address] [facility]- Cardiology [address] [place], [address], 09/13/2023 09:28:49 Result Notes None recorded. Problems Name Problem SNOMED Code Status Onset Date Resolution Date Notes Provider Name and Address Organization Details Recorded Time Gastroes ophageal reflux disease without esophagi tis 561753882 Active 2022 Problem Code: K21.9; Problem Code Type: ICD-10; Not Available [facility] 4 05:35:57 Glaucoma 73122518 Active 2022 Problem Code: H40.9; Problem Code Type: ICD-10; Not Available [facility] 4 05:35:57 Hyperlip idemia 85364180 Active 2022 Problem Code: E78.5; Problem Code Type: ICD-10; Not Available [facility] 4 05:35:57 [facility] hyperten niels 13535159 Active 2022 Problem Code: I10; Problem Code Type: ICD-10; Not Available [facility] 4 05:35:57 Pain of left hip joint 63992727657 9100 Active 2022 Problem Code: M25.552; Problem Code Type: ICD-10; Not Available [facility] 4 05:35:57 Idiopath ic osteoart hritis 989946369 Active 2022 Problem Code: M16.12; Problem Code Type: ICD-10; Not Available [facility] 4 05:35:57 Inguinal hernia 729646737 Active 2022 Problem Code: K40.90; Problem Code Type: ICD-10; Not Available [facility] 4 05:35:57 Heart murmur 42181967 Active 2022 Problem Code: R01.1; Problem Code Type: ICD-10; Not Available [facility] 4 05:35:57 Dyspnea 293647059 Active 2022 Problem Code: R06.09; Problem Code Type: ICD-10; Not Available [facility] 4 05:35:57 Chest pain 72758764 Active 2022 Problem Code: R07.89; Problem Code Type: ICD-10; Not Available [facility] 4 05:35:57 Melanocy tic nevus 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 Active 2022 Problem Code: D22.9; Problem Code Type: ICD-10; Not Available [facility] 4 05:35:57 Aortic stenosis , non-rheu matic 611994882 Active 2022 Problem Code: I35.0; Problem Code Type: ICD-10; Not Available [facility] 4 05:35:58 Aortic stenosis , non-rheu matic 816209443 Completed 202208/14/2023 Problem Code: I35.0; Problem Code Type: ICD-10; Not Available [facility] 4 05:35:58 Indigest ion 734781735 Active 2023 GLORIA CAMP LPN null, [facility] 4 08:48:57 Coronary artery bypass grafts x 3 Active 2023 Kelly Duran RN null, [facility] 4 10:30:01 At increase d risk of atrial fibrilla tion 485897664 Active [address], [place], [address] , [facility] 4 13:52:01 Anemia 036332547 Active [address], [facility] [address] , [facility] 4 13:54:39 Problem Notes None recorded. Procedures Surgical History Date Name Laterality Status Provider Name and Address Organization Details Recorded Time coronary artery bypass graft completed Hudson Reeder MA [place] - [facility] 03/04/2024 14:54:09 Imaging Results Imaging Date Name Status LastModified by Organization Details LastModified Time 12/05/2022 trans-thoracic echocardiogram (TTE) (PROC) completed [address] Xray [address] , [place], [address], 09/13/2023 09:29:52 06/01/2022 XR, hip, unilateral [place] [address] Information not available 09/13/2023 09:29:19 12/06/2019 US, echocardiogram completed [address]- Cardiology [address] , [place], [address], 09/13/2023 09:28:49 Procedure Notes None recorded. Medical [...] es. Take 1 hr prior. Started by [facility]. Not Available Not Available Not Available doxycycli [...] BY MOUTH DAILY 02/24 completed stopped by [facility] Not Available Not Available Not Available brimonidi [...] hours by oral route as needed. active [facility] Not Available Not Available No t Available Aspirin Childrens 81 mg chewable tablet Take 1 tablet by mouth once a day active Not Available Not Available No t Available lisinopri l 5 mg tablet TAKE 1 TABLET BY MOUTH EVERY DAY 02/24 completed stopped by [facility] Not Available Not Available Not Available mupirocin [...] day by oral route. active started by [facility] Not Available Not Available Not Available dorzolami de 2 % (PF) eye drops 1 drop both eyes bid 12/17 completed Not Available Not Available Not Available Vitals Date Recorded Body weight Body mass index (BMI) Body height Heart rate Systolic blood pressure Diastolic blood pressure Provider Name and Address Organization Details Last Updated DateTime 3 77400.7 8 g 23.7 kg/m2 167.64 cm 64 /min 110 mm[Hg] 60 mm[Hg] GLORIA CAMP LPN [facility], [facility] 3 08:48:49 Date Recorded Body height Body mass index (BMI) Body weight Heart rate Systolic blood pressure Diastolic blood pressure Provider Name and Address Organization Details Last Updated DateTime 4 167.64 cm 24.6 kg/m2 04916.4 4 g 60 /min 112 mm[Hg] 80 mm[Hg] GLORIA CAMP LPN [facility] 4 08:38:13 Date Recorded Body height Body mass index (BMI) Body weight Heart rate Oxygen saturation Oxygen saturation in Arterial blood by Pulse oximetry Systolic blood pressure Diastolic blood pressure Provider Name and Address Organization Details Last Updated DateTime 4 167.64 cm 22.6 kg/m2 04706.6 5 g 63 /min 99 % 99 % 102 mm[Hg] 54 mm[Hg] Hudson Reeder MA [facility] 4 10:27:28 Social History Question Answer Notes LastModified by Organizat ion Details LastModified Time Tobacco Smoking Status Former Smoker Hudson Reeder MA [facility], [facility] 03/06/2024 10:24:50 Do You Have An Advance Directive? Yes Registered 08/15/23 Updated 01/12/24 Information not available 01/15/2024 When Did You Quit Smoking? 11-15years [email or web address] igarette Information not available 03/06/2024 Do You Have A Medical Power Of Stage Setting Painter Apprentice? Yes Received 08/30/23, Scanned. Copies Sent To [facility] And Patient 09/02/23. Information not available 09/02/2023 What Was The Date Of Your Most Recent Tobacco Screening? 03/06/2024 [email or web address] Information not available 03/06/2024 What Is Your Current Pack Years? 30ormorepa ckyears [email or web address] Information not available 03/06/2024 How Much Tobacco Do You Smoke? 1 PPD [email or web address] Information not available 03/06/2024 How Many Years Have You Smoked Tobacco? 40 [email or web address] Information not available 03/06/2024 Do You Or Have You Ever Used Any Other Forms Of Tobacco Or Nicotine? No Information not available 03/06/2024 Sex: Male Functional [...] Recorded Time Tdap 08/26/2013 completed Not Available [facility] 05:30:17 Td(adult) unspecified formulation 11/21/2022 completed Not Available [facility] 10/18/2023 05:30:17 COVID-19, mRNA, LNP-S, PF, 100 mcg/0.5mL dose or 50 mcg/0.25mL dose 01/24/2021 completed Not Available [facility] 10/18/19 05:30:18 COVID-19, mRNA, LNP-S, PF, 100 mcg/0.5mL dose or 50 mcg/0.25mL dose 02/21/2021 completed Not Available [facility] 10/18/19 05:30:18 COVID-19, mRNA, LNP-S, PF, 100 mcg/0.5mL dose or 50 mcg/0.25mL dose 09/11/2021 completed Not Available [facility] 10/18/19 05:30:18 influenza, unspecified formulation 07/26/2021 completed Not Available [facility] 10/18/2023 05:30:18 influenza, unspecified formulation 07/26/2022 completed Not Available [facility] 10/18/2023 05:30:18 influenza, unspecified formulation 07/28/2020 completed Not Available [facility] 10/18/2023 05:30:18 influenza, unspecified formulation 08/05/2019 completed Not Available [facility] 10/18/2023 05:30:18 influenza, unspecified formulation 08/12/2018 completed Not Available [facility] 10/18/2023 05:30:18 Past Encounters Encounter ID Performer Location Encounter Start Date Encounter Closed Date Diagnosis/Indication Diagnosis SNOMED-CT Code Diagnosis ICD10 Code [id number] [address] [address] 09/19/2023 08:39:51 09/19/2023 09:17:42 Aortic valve stenosis 52049885 I35.0 Essential hypertension 47151011 I10 [id number] [address] [address] 12/18/2023 08:23:47 12/18/2023 09:29:09 Aortic stenosis, non-rheumatic 979967523 I35.0 Essential hypertension 27011241 I10 Nonulcer dyspepsia 11619 07 K30 Cramp in lower leg 07439 8009 R25.2 [id number] TATYANA LEDEZMA MD [address] [address] 03/06/2024 10:15:07 03/06/2024 11:14:28 Postoperative visit 374865840 Z48.89 Aortic rosa m nosis, non-rheumatic 943144327 I35.0 Stented co ronary artery 587447303 Z95.5 [facility] of [facility] fibrillation 795664440 Z91.89 Anemia 657035661 D64.9 Health Concerns Section Related Observation LastModified by Organization Detai ls LastModified Time None Recorded Concern Status LastModified by Organization Details LastModified Time None Recorded Advance Directives Directive Y: Registered 08/15/23Updated 01/12/24 Payers Encounter Date Sequence Insurance Name Policy Number Policy Alicia Covered Member ID Alicia Member ID Guarantor Name 12/18/2023 1 [employer] [id number] Karlos C Patenaude [id number] Karlos C Patenaude 03/06/2024 1 UMR [id number] Karlos C Patenaude [id number] Karlos C Patenaude Notes Date Note Type Note Provider Name and Address Organization Details Recorded Time 09/19/2023 text/html HPI Notes: 63-year-old man here for follow-up hypertension, severe aortic stenosis., He works full-time at [employer]. He lives at home with his dog. [...] trivial to mild aortic insufficiency. Aparna lizarraga [place] - [facility]. 09/19/2023 13:31:38 12/18/2023 text/html HPI Notes: 63-year-old man here for follow-up hypertension, severe aortic stenosis., He works full-time at [employer]. He lives at home with his dog. [...] and Ovaltine in his coffee. Aparna lizarraga, [place] - [facility]. 12/18/2023 11:43:00 03/06/2024 text/html HPI Notes: Ana Paula marlow is here today for a postop evaluation TATYANA LEDEZMA MD [address], [place], [address], [facility] - [facility]. 03/08/2024 13:57:34
--- OUTSIDE RECORDS SUMMARY | 2024-07-14 10:09 | XMS_ITS | Encounter Summary ---
[place] [address] Care Team Providers Care Car Worker Helper Name Role Phone Victor M Lafleur MD Primary Care Provider [phone] Reason for Visit * Reason Onset Date Comments Referral 09/20/2023 Encounter Details Date Type Department Care Team (Late st Contact Info) Description 09/20/2023 Telephone Cardiology at [address] [address] Karen Billy, sizer hand Social History Tobacco Use Types Packs/Day Years [...] PM EST Office Visit Cardiology at [address] [place] [address] Neftali Ernandez MD [facility] [place] [address] documented as of this encounter Visit Diagnoses Not on filedocumented in this encounter Care Teams Car Worker Helper Relationship Specialty Start Date End Date Victor M Lafleur MD PCP - General 10/02/13 10/20/23 documented as of this encounter
--- OUTSIDE RECORDS SUMMARY | 2024-07-14 10:09 | XMS_ITS | Encounter Summary ---
Author Organization [facility] [place] [address] Care Team Providers Care Client Liaison Name Role Phone Vanessa Christian MAURI Primary Care Provider [phone] Reason for Visit * Auth/Cert (Routine) Specialty [...] W RHC (WRVU 5.9) Rima Dickinson MD [facility] [place] [address] [facility] Referral ID Status Reason Start Date Expiration Date Visits Re quested Visits Authorized [id number] 1 1 Encounter Details Date Type Department Care Team (Latest Contact Info) Description 02/03/2024 8:06 AM EDT - 02/03/2024 2:54 PM EDT Hospital Encounter [employer] [place] [address] Rima Dickinson MD [facility] [place] [place] [address] Screening for cardiovascular condition; Aortic valve stenosis, [...] lbs Follow-up Visits Follow up with your managed care specialist in 2-4 weeks Access Site 'Black and Blue' and tenderness is expected during the first week Call if you noted a mass (lump) greater than the size of a ellis Call Office with any Questions and if you have any of the following Clarence Lane M.D Interventional Outsole Flexer Harpsichord Maker #: [phone] * Attachments The following attachments cannot be [...] MD - 02/03/2024 11:48 AM EDT [facility] Interventional Cardiology Adult Pre-Procedure H&P Update: Cardiac Catheterization Karlos Anthony [id number] 1960 Chief Complaint: Aortic stenosis HPI: Mr. [...] is inthe chart Clarence Lane MD Interventional Outsole Flexer 02/03/24 11:48 AM documented in this encounter Miscellaneous Notes * Brief Op Note - Clarence Lane MD - 02/03/2024 12:51 PM EDT Preliminary Cardiac Catheterization Procedure Note: Patient Name: Karlos Anthony : [id number] MR#: [id number] Case Date: 02/03/2024 Harpsichord Maker: Surgeon(s) and Role: * Saira Lua MD [...] PM EST Office Visit Cardiology at [address] [address] Neftali Ernandez MD [facility] [place] [address] Scheduled Orders Name Type Priority Associated Diagnoses [...] Modality Other Narrative 02/12/2024 3:47 PM EDT ?[facility] ? Cardiac Catheterization/Intervention Report ? Patient Name: Patenaude, Karlos ? Procedure Date: 02/03/2024 ? A #: [id number] ? Primary Physician: Saira Lua ? Case #: [id number] ? File Name: [id number] ? Catheterization Order Number: [id number] ? [facility] ? Final Report [place], [place] ? Patient Name: ? Karlos Patenaude ? ID#: [id number] ? : ?1960 ? Procedure Date: ? [...] Procedure Note Saira Lua MD - 02/12/2024 [facility] Cardiac Catheterization/Intervention Report Patient Name: Karlos Anthony Procedure Date: 02/03/2024 A #: [id number] Primary Physician: Saira Lua Case #: [id number] File Name: [id number] Catheterization Order Number: [id number] [facility] FinalReport [place], [place] Patient Name: Karlos Anthony ID#:[id number] :1960 Procedure Date: February 03, 2024 Case #: [id number] Room: 5 Case Physician: Saira Lua M.D. Start: 12:29 Fellow: Clarence aLne M.D. Admission:02/03/2024 Referring Physician: Zak Farmer M.D. Procedures: * Coronary Angiography History Karlos Anthony is a 63 year old man. He has hypertension. Thepatient's smoking status is Never. He also has hypercholesterolemia managedwith lipid therapy. Prior to the initiation of this procedure, thepatient was designated as ASA Class III. The [facility] clinical frailty scale is 3: [...] (Bezet) 372 ms MUSE SYSTEM Calculated P [place] 59 degrees MUSE SYSTEM Calculated R [place] 34 degrees MUSE SYSTEM Calculated T [place] 63 degrees MUSE SYSTEM INTERPRETATION Sinus bradycardia [...] MD) documented in this encounter Care Teams Client Liaison Relationship Specialty Start Date End Date Vanessa Christian APRN PCP - General Family Medicine 10/21/23 05/26/24 documented as of this encounter
--- OUTSIDE RECORDS SUMMARY | 2024-07-14 10:09 | XMS_ITS | Encounter Summary ---
Author Organization [facility] [place] [address] Care Team Providers Care Production Weigher Name Role Phone Victor M Lafleur MD Primary Care Provider [phone] Encounter Details Date Type Department Care Team (Late st Contact Info) Description 09/26/2023 Abstract Cardiology at [address] [address] Karen Billy, RN Nonrheumatic aortic [...] 3:40 PM EST Office Visit Cardiology at [address] [place] [address] Neftali Ernandez MD [facility] [place] [address] documented as of this encounter Visit Diagnoses Diagnosis Nonrheumatic aortic valve stenosis Aortic valve disorders Nevus of face Benign neoplasm of skin of other and unspecified parts of face documented in this encounter Care Teams Production Weigher Relationship Specialty Start Date End Date Victor M Lafleur MD PCP - General 10/02/13 10/20/23 documented as of this encounter
--- OUTSIDE RECORDS SUMMARY | 2024-07-14 10:09 | XMS_ITS | Encounter Summary ---
Author Organization [facility] [place] [address] Care Team Providers Care Compensation Supervisor Name Role Phone Vanessa Christian Lane DOTSON Primary Care Provider [phone] Reason for Referral * Diagnostic Test (Routine) - Closed Specialty Diagnoses / Procedures Referred By Contac t Referred To Contact Radiology Diagnoses Nonrheumatic aortic valve stenosis Procedures CT Chest wo Contrast (Generic) Louisa Cho PA [facility] [place] [address] [facility] [place] [address] Referral ID Status Reason Start Date Expiration Date V isits Requested Visits Authorized [id number] Closed Specialty Service Requested 01/10/2024 07/11/2025 1 1 Reason for Visit * Diagnostic Test (Routine) - Closed Specialty Diagnoses / Procedures Referred By Contac t Referred To Contact Radiology Diagnoses Nonrheumatic aortic valve stenosis Procedures CT Chest wo Contrast (Generic) Louisa Cho PA [facility] [place] [address] [facility] [place] [address] Referral ID Status Reason Start Date Expiration Date V isits Requested Visits Authorized [id number] Closed Specialty Service Requested 01/10/2024 07/11/2025 1 1 Encounter Details Date Type Department Care Team (Latest Contact Info) Description 02/03/2024 7:36 AM EDT - 02/03/2024 8:05 AM EDT Hospital Encounter CT Scan at [facility] [place] [address] Zak Farmer MD [facility] [place] [address] Nonrheumatic aortic valve stenosis Discharge Disposition: Home Social History Tobacco Use Types Packs/Day Years Used Date Smoking Tobacco: Former Cigarettes Smokeless Tobacco: Never Comments:Quit 15 + years ago Alcohol Use Standard Drinks/Week Comments Yes 0 (1 standard drink = 0.6 oz pur e alcohol) rare [facility] Inpatient Questions Answer Date [...] 3:40 PM EST Office Visit Cardiology at [address] [place] [address] Neftali Ernandez MD [facility] [place] [address] documented as of this encounter Procedures Procedure Name Priority Date/Time Associated Diagnosis Comments CT CHEST WO CONTRAST (GENERIC) Routine 02/03/2024 7:44 AM EDT Nonrheumatic aortic valve stenosis documented in this encounter Results * CT Chest wo Contrast (Generic) (02/03/2024 7:44 AM EDT) [employer] WORKSTATION ID [id number] DH RAD Anatomical Region Laterality Modality Chest [...] questions please contact the health home care giver that requested your imaging first. ? Electronically signed by: Rogerio Wright MD, [facility] ([phone]), at 02/03/2024 10:00 AM Narrative 02/03/2024 10:00 [...] have questions please contactthe health home care giver that requested your imaging first. Electronically signed by: Rogerio Wright MD, [facility]([phone]), at 02/03/2024 10:00 AM Zak Farmer MD IMG CT ORDERABLES documented in this encounter Visit Diagnoses Diagnosis Nonrheumatic aortic valve stenosis Aortic valve disorders documented in this encounter Care Teams Compensation Supervisor Relationship Specialty Start Date End Date Vanessa Christian APRN PCP - General Family Medicine 10/21/23 05/26/24 documented as of this encounter
--- OUTSIDE RECORDS SUMMARY | 2024-07-14 10:09 | XMS_ITS | Encounter Summary ---
Author Organization [facility] [place] [address] Care Team Providers Care Thermoforming Machine Operator Name Role Phone Vanessa Christian APRN Primary Care Provider [phone] Encounter Details Date Type Department Care Team [...] 3:40 PM EST Office Visit Cardiology at [address] [place] [id number] Neftali Ernandez MD [facility] [place] [address] documented as of this encounter Visit Diagnoses Not on filedocumented in this encounter Care Teams Thermoforming Machine Operator Relationship Specialty Start Date End Date Vanessa Christian APRN PCP - General Family Medicine 10/21/23 05/26/24 documented as of this encounter
--- OUTSIDE RECORDS SUMMARY | 2024-07-14 10:09 | XMS_ITS | Encounter Summary ---
Author Organization [facility] [place] [address] Care Team Providers Care Recycling Coordinator Name Role Phone Vanessa Christian APRN Primary Care Provider [phone] Encounter Details Date Type Department Care Team (Late st Contact Info) Description 10/21/2023 Abstract Cardiology at [address] [phone] Adam Mayes RN Social History Tobacco Use [...] 3:40 PM EST Office Visit Cardiology at [address] [address] Neftali Ernandez MD [facility] [place] [address] documented as of this encounter Visit Diagnoses Not on filedocumented in this encounter Care Teams Recycling Coordinator Relationship Specialty Start Date End Date Vanessa Christian APRN PCP - General Family Medicine 10/21/23 05/26/24 documented as of this encounter
--- OUTSIDE RECORDS SUMMARY | 2024-07-16 09:58 | XMS_ITS | Clinical Summary ---
Author Organization [facility] Address [address] [place] [address] Care Team Providers Care Stuffer Name Role Phone Vanessa Christian NP Primary Care Provider [phone] Social History Tobacco Use Types Packs/Day Years [...] COVID-19 Vaccine (2022- season) 2024 Care Teams Stuffer Relationship Specialty Start Date End Date Vanessa Christian NP [address] [place] [phone] PCP - General Family Medicine - Primary Care 10/07/23
--- OUTSIDE RECORDS SUMMARY | 2024-07-16 09:58 | XMS_ITS | Clinical Summary ---
Author Organization [facility] Address [facility] [place] [address] Care Team Providers Care Spring Former Machine Name Role Phone Vanessa Christian Lane DOTSON Primary Care Provider [phone] Allergies No known active allergies Medications Medication [...] of face 09/26/2023 05/27/2024 Overview (09/26/2023): Right lutheran Chest pressure 08/14/2023 10/21/2023 SILVA (dyspnea on exertion) 08/14/2023 HLD (hyperlipidemia) 08/14/2023 024 Encounters Date Type Department Care Team Description 05/27/2024 11:00 AM EDT Office Visit Cardiology at [address] [place] [address] Neftali Ernandez MD ASCVD (arteriosclerotic [...] 05/27/2024 11:09 AM EDT Plan of Treatment Health Maintenance Due Date [...] PCV) 2024 Medical Devices Implanted Type Area Banner Painter Device Identifier Shelf Expiration Date Model / Serial / Lot Cable,Cut,Edg ,Blnt,Ss,3tpr ([id number]) - [id number] Implanted:Qty : 1 on 02/17/2024 by Zak Farmer MD at [facility] IMPLANTS Midline: Chest [employer] - [id number] 09/02/2028 [id number] / / [id number] Valve Coronary Aortic 23mm Tissue Trnscath Biopros Inspiris ([id number]) (Autoreq) - [id number] Implanted:Qty : 1 on 02/17/2024 by Zak Farmer MD at [facility] IMPLANTS Heart [employer] - TSAI LI 09/15/2027 [id number] 23MM / [id number] / Procedures Procedure Name Priority Date/Time Associated Diagnosis Comments EKG 12-LEAD Routine 05/27/2024 11:24 AM EDT from Last 3 Months Results * EKG 12 Lead (05/27/2024 11:24 AM EDT) Pathologist [facility] Ventricular rate 54 BPM MUSE SYSTEM Atrial Rate 54 BPM MUSE SYSTEM P-R Interval 216 ms MUSE SYSTEM QRS Duration 92 ms MUSE SYSTEM Q-T Interval 388 ms MUSE SYSTEM QTC Calculated (Bezet) 367 ms MUSE SYSTEM Calculated P Swisher 12 degrees MUSE SYSTEM Calculated R Swisher 27 degrees MUSE SYSTEM Calculated T Swisher 62 degrees MUSE SYSTEM INTERPRETATION Sinus bradycardia with 1st degree A-V block Otherwise normal ECG When compared with ECG of 12-MAR-2024 14:35, T wave inversion no longer evident in Anterior leads Confirmed by MD Ernanedz Daniel ([id number]) on 06/01/2024 8:36:17 AM MUSE SYSTEM 05/27/2024 [...] Status decision made by: Patient Care Teams Spring Former Machine Relationship Specialty Start Date End Date Vanessa Christian APRN [address] [place] [address] PCP - General Family Medicine 05/27/24
--- OUTSIDE RECORDS SUMMARY | 2024-07-16 09:58 | XMS_ITS | Encounter Summary ---
Author Organization [facility] Address [address] [place] [address] Care Team Providers Care Voucher Clerk Name Role Phone Vanessa Christian Lane MONCADA Primary Care Provider [phone] Encounter Details Date Type Department Care Team (Late st Contact Info) Description 10/24/2023 Lab Requisition [facility] Pathology & Laboratory Medicine - [address] [address] Oscar Nichole MD [address] [place] [address] [phone] Factitial dermatitis Social History Tobacco Use Types [...] if applicable. 10/28/2023 11:24 EST [facility] Final Diagnosis A. SKIN OF RESTORATIONIST, LEFT, SHAVE BIOPSY: - Seborrheic keratosis, pigmented. 10/28/2023 11:24 EST [facility] Attestation By the signature below, [...] patient identification (initials P, A) and left scientologist is a shave biopsy of an irregular [...] [facility] Performing Lab [facility] 10/28/2023 11:24 [facility] Scanned Images 10/28/2023 11:24 [facility] Tissue SPECIMEN FROM SKIN / Unknown 10/24/2023 14:30 EST 10/24/2023 22:04 EST Oscar Nichole MD PATHOLOGY ORDERABLES [facility] [address] [place] [address] documented in this encounter Visit Diagnoses Diagnosis Factitial dermatitis Dermatitis factitia (artefacta) documented in this encounter Care Teams Voucher Clerk Relationship Specialty Start Date End Date Vanessa Christian NP [address] [place] [address] PCP - General Family Medicine - Primary Care 10/07/23 documented as of this encounter
--- OUTSIDE RECORDS SUMMARY | 2024-07-16 09:58 | XMS_ITS | Referral Summary ---
Author Organization [facility] Address [address] [place] [address] Care Team Providers Care Assembling Fabricator Name Role Phone Filidayna Vanessa Sherman NP Primary Care Provider [phone] Social History Tobacco Use Types Packs/Day Years Used Date Smoking Tobacco: Never Assessed Sex and Gender Information Value Date Recorded Sex Assigned at Not on file Gender Identity Not on file Sexual Orientation Not on file Plan of Treatment Not on file Care Teams Assembling Fabricator Relationship Specialty Start Date End Date Vanessa Christian NP [address] [place] [address] PCP - General Family Medicine - Primary Care 10/07/23
--- OUTSIDE RECORDS SUMMARY | 2024-07-16 09:59 | XMS_ITS | Encounter Summary ---
Author Organization [facility] Address [facility] [place] [address] Care Team Providers Care Paper Winder Name Role Phone Vanessa Christian MAURI Primary Care Provider [phone] Encounter Details Date Type Department Care Team [...] on file documented as of this encounter Visit Diagnoses Not on filedocumented in this encounter Care Teams Paper Winder Relationship Specialty Start Date End Date Vanessa Christian APRN [address] [place] [address] PCP - General Family Medicine 05/27/24 documented as of this encounter
--- OUTSIDE RECORDS SUMMARY | 2024-07-16 09:59 | XMS_ITS | Encounter Summary ---
Author Organization [facility] Address [facility] [place] [address] Care Team Providers Care Inspector Air Carrier Name Role Phone Vanessa Christian Lane DOTSON Primary Care Provider Reason for Visit * Reason Comments Coronary Artery Disease Aortic Stenosis Encounter Details Date Type Department Care Team (Latest Contact Info) Description 05/27/2024 11:00 AM EDT Office Visit Cardiology at [address] [place] [phone] Neftali Ernandez MD [facility] [address] ASCVD (arteriosclerotic cardiovascular disease); Nonrheumatic aortic valve stenosis Social History Tobacco Use Types Packs/Day Years Used Date Smoking Tobacco: Former Cigarettes Smokeless Tobacco: Never Comments:Quit 15 + years ago Alcohol Use Standard Drinks/Week Comments Yes 0 (1 standard drink = 0.6 oz pur e alcohol) rare [facility] Utilities Answer Date Recorded In the past 12 months has e [employer], gas, oil, or water [employer] threatened to shut off services in your [...] documented in this encounter Plan of Treatment Not on file documented as of this encounter Visit Diagnoses Diagnosis ASCVD (arteriosclerotic cardiovascular disease) Unspecified cardiovascular disease Nonrheumatic aortic valve stenosis Aortic valve disorders documented in this encounter Care Teams Inspector Air Carrier Relationship Specialty Start Date End Date Vanessa Christian, MAURI [address] [place] [address] PCP - General Family Medicine 05/27/24 documented as of this encounter
--- OUTSIDE RECORDS SUMMARY | 2024-07-16 09:59 | XMS_ITS | Encounter Summary ---
[place] [address] Care Team Providers Care Medication Manager Name Role Phone Aparna Jordan MAURI Primary Care Provider [phone] Reason for Referral * Diagnostic Test (Routine) - New Request Specialty Diagnoses / Procedures Referred By Contac t Referred To Contact Cardiology Diagnoses S/P AVR Procedures Echocardiogram Transthoracic Neftali Menon PA [facility] [place] [address] [facility] [place] [address] Referral ID Status Reason Start Date Expiration Date Visits Requested Visits Authorized [id number] New Request Specialty Service Requested 02/24/2024 02/23/2025 1 1 * Consultation (Routine) - Authorized Specialty Diagnoses / Procedures Referred By Contac t Referred To Contact Cardiology Diagnoses S/P AVR Hayder Graham MD [facility] [place] [address] Cardiac Rehab, [facility] [address] [place] [address] [place] [address] Referral ID Status Reason Start Date Expiration Date Visits Requested Visits Authorized [id number] Authorized Consult, Test & Treat 02/24/2024 08/22/2024 36 36 * Home Health Care (Routine) - Authorized Specialty Diagnoses / Procedures Referred By Sixto mendoza Referred To Contact Diagnoses S/P AVR Hayder Graham MD [facility] [place] [address] Referral ID Status Reason Start Date Expiration Date Visits Requested Visits Authorized [id number] Authorized Consult, Test & Treat 02/24/2024 08/22/2024 [...] ARTERIAL GRAFT (WRVU 7.93) Hayder Graham MD [facility] [place] [address] [facility] Referral ID Status Reason Start Date Expiration Date Visits Re quested Visits Authorized [id number] 1 1 Encounter Details Date Type Department Care Team (Latest Contact Info) Description 02/17/2024 5:43 AM EDT - 02/24/2024 11:23 AM EDT Hospital Encounter Heart and Vascular Unit Level 4 [place] [address] Hayder Graham MD [facility] [place] [address] S/P AVR (Primary Dx); Aortic valve stenosis, etiology of cardiac valve disease unspecified Discharge Disposition: Home with VNA Social History Tobacco Use Types Packs/Day Years Used Date Smoking Tobacco: Former Cigarettes Smokeless Tobacco: Never Comments:Quit 15 + years ago Alcohol Use Standard Drinks/Week Comments Yes 0 (1 standard drink = 0.6 oz pur e alcohol) rare [facility] Utilities Answer Date Recorded In the [...] Patient Age: 63 y.o. Birthdate: 1960 Language: Macanese Race: White Ethnicity: Not nor Admit Date: 02/17/2024 Discharge Date: 02/24/24 Attending Physician: Hayder Graham MD Follow-up Recommendations for Providers: Please continue routine management of cardiovascular risk factors including blood pressure, lipids,glucose, etc. Please note any changes to medications. Patient to follow up with PCP, Aparna Jordan APRN, in 1-2 weeks. Patient to follow up with Chief Environmental Commitment Officer, Neftali Ernandez MD , in 2 weeks. Patient to follow up with Cardiac Surgeon, Dr. Hayder Graham, with a chest x-ray, EKG, and Echo. Inpatient Provider Contact Information: [facility] Section of Cardiac Surgery [facility] [address] FAX [phone] Discharge Diagnoses (Hospital Problems) Primary Diagnoses: /CAD [...] Hypertension 08/14/2023 Nevus of face 09/26/2023 Right congregational Past Surgical History: Procedure Laterality Date PRO CABG, ARTERIAL, SINGLE N/A 02/17/2024 @CABG, USING ARTERIAL GRAFT;SINGLE ARTERIAL GRAFT (WRVU 33.75) performed by Hayder Graham MD at [facility] MAIN OR PRO CABG, ARTERY-VEIN, TWO N/A 02/17/2024 @CABG, TWO VENOUS GRAFTS & ARTERIAL GRAFT (WRVU 7.93) performed by Hayder Graham MD at [facility] MAIN OR PRO ENDOSCOPY W/VIDEO-ASST VEIN HARVEST, CABG Left 02/17/2024 ENDOSCOPIC HARVEST VEIN(S) FOR CABG (WRVU 0.31) performed by Hayder Graham MD at [facility] MAIN OR PRO REPLACEMENT PROSTHETIC AORTIC VALVE OPEN W CARDIOPULMONARY BYPASS HOMOGRF/STENT N/A 02/17/2024 @REPLACE AORTIC VALVE, OPEN, W\CPB, W\PROSTHETIC VALVE (WRVU 41.32) performed by Hayder Graham MD at [facility] MAIN OR Prior To [...] insufficiency. He has glaucoma. He used to Digital Perception until about 15 years ago. He has undergone prior herniorrhaphy. 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 Major Procedures/Operations: 02/17/24 s/p avr/cabgx3 CABG x 3 JOSE->LAD SVG->dRCA SVG->OM1 EVH from LLE AVR with a 23 mm Inspiris Bioprosthesis Hospital Course: Karlos Garcia was admitted to [facility] on 02/17/2024 via the Same Day [...] Hayder Graham and/or the Cardiac Surgery Physician Saw Filer Team may be reached at . Antibiotic [...] Please refer to the card with the [place] [employer] Guidelines for more information. You [...] Dr. Hayder Graham. You may use a [place] Track or treadmill but avoid any pulling [...] should resume a low fat, low cholesterol, [place] Diet. Driving: No driving until [...] while being managed by your PCP and/or Chief Environmental Commitment Officer. For future medication refills, please refer to your PCP and/or Chief Environmental Commitment Officer after your discharge from our service. Thank you REMOVE CHEST TUBE SUTURES ON OR AFTER 03/02/24 Home oxygen therapy: N/A Follow up appointments: You should follow up with your PCP, Aparna Jordan APRN, in 1-2 weeks. Our office will schedule an appointment with your Chief Environmental Commitment Officer, Neftali Ernandez MD , in 2 weeks. [...] Future Orders Complete By Expires Echocardiogram Transthoracic [97583 CPT(R)] 03/26/2024 09/25/2024 Process Instructions: Scheduling Instructions: Questions: Where will study be performed?: [facility] Clinics Does the patient have Congenital Heart Disease?: Does patient require sedation?: Sedation rationale: XR Chest PA & Lateral (Generic) [18690 43869 Custom] 03/26/2024 09/25/2024 Process Instructions: Scheduling Instructions: Questions: Portable exam?: Reason for exam and clinical history: s/p avr/cabg Clinical information / jerome questions for radiologist: Stat read required?: Date of injury if applicable: Requested Time: Where will study be performed?: [facility] Radiology Referral to Cardiac Rehab [LWV411 Custom] As directed Process Instructions: If no [...] to Home Health. [address] Phone Number: Date of : 1960 Inpatient DOCUMENTATION FOR VNA SERVICES (INCLUDING THOSE PATIENTS WITH MEDICARE COVERAGE REQUIRING HOME VNA SERVICES AND/OR HOSPICE SERVICES) PATIENT'S LOCATION: Karlos Garcia [address] [place] [phone] Wafer Cleaner's Name: self/family In discussion with the attending physician, it is certified that this patient is under their care and that they, or a Nurse Practitioner, or Physician Saw Filer who is working directly with them, hada [...] for services as follows: HOME HEALTH AGENCY: [facility] [address] [place] [address] RN orders: Cardiopulmonary assessment, incisional assessment, assess [...] issues please call the Cardiology Office at [phone] FOR MEDICARE ONLY: (please delete this section [...] APRN [address] / [place] [address] . All VNA agencies which cover the area of patient's residence have been reviewed, either verbally or in writing, and patient/family have chosen the home health care agency noted. Questions: Disciplines Requested: Nursing Physical Therapy Arrangements for VNA/home care: As above. Signed: NEFTALI MENON PA-C [facility] Section of Cardiac Surgery [facility] [address] FAX [phone] Date: 02/24/2024 CC: Aparna Jordan, MAURI Jordan, Aparna Sherman APRN [address] [place] [address] documented in this encounter Discharge Instructions * [...] Hayder Graham and/or the Cardiac Surgery Physician Saw Filer Team may be reached at . Antibiotic [...] Please refer to the card with the [employer] Guidelines for more information. You [...] Dr. Hayder Graham. You may use a [place] Track or treadmill but avoid any pulling [...] should resume a low fat, low cholesterol, [employer] Heart [employer] Diet. Driving: No driving until [...] while being managed by your PCP and/or Chief Environmental Commitment Officer. For future medication refills, please refer to your PCP and/or Chief Environmental Commitment Officer after your discharge from our service. Thank you REMOVE CHEST TUBE SUTURES ON OR AFTER 03/02/24 Home oxygen therapy: N/A Follow up appointments: You should follow up with your PCP, Aparna Jordan APRN, in 1-2 weeks. Our office will schedule an appointment with your Chief Environmental Commitment Officer, Neftali Ernandez MD , in 2 weeks. [...] 0600 and on the weekends please page [phone]. * Eric Barahona PA - 02/23/2024 9:27 [...] 0600 and on the weekends please page [phone]. * Tiffanie Owens PTA - 02/22/2024 2:48 [...] reports his dtr is coming from [place] to stay upon d/c for 10 days. 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 He works Precautions/Special Considerations: [...] LRAD and supervision Time IN / OUT: 8290-6366 Total Time: 30 minutes; TEFx2 Tiffanie Owens Pager: [phone] Physical Therapy Inpatient Rehabilitation Department * Romeo [...] 0600 and on the weekends please page [phone]. * Kelley Hinson, SEARCH ENGINE MARKETING SPECIALIST - 02/21/2024 10:15 AM EDT Physical [...] reports his dtr is coming from [place] to stay upon d/c for 10 days. 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 * Kelley Hinson PTA - 02/20/2024 3:32 [...] at that time Kelley Hinson PTA Pager: [phone] Physical Therapy Inpatient Rehab Department * Louisa [...] 0600 and on the weekends please page [phone]. * Maris Benavides, PT - 02/19/2024 11:22 [...] reports his dtr is coming from [place] to stay upon d/c for 10 days. 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 Precautions/Special Considerations: [...] outlined inthis evaluation. MARIS BENAVIDES, PT Pager: [phone] Physical Therapy Inpatient Rehabilitation Department Time IN / OUT: 2702-3103 Total Time: 38 (eval) minutes; * Antonio [...] 0600 and on the weekends please page [phone]. * Minnie Begum PA - 02/18/2024 8:25 [...] site CDI with SANJANA wrap Tubes/Lines/Drains: RIJ/PAC, [place], Jacky Ctx, L pleural CT, TPW, Delaney [...] 0600 and on the weekends please page [phone]. * Kim Ha RCP - 02/17/2024 2:25 [...] plan since last visit. Hayder Graham MD [phone] Source Note - Hayder Graham MD - [...] insufficiency. He has glaucoma. He used to Digital Perception until about 15 years ago. He has [...] given written informed consent. Hayder Graham MD [phone] * Hayder Graham MD - 02/17/2024 7:00 [...] given written informed consent. Hayder Graham MD [phone] documented in this encounter Miscellaneous Notes * [...] information for follow-up Home Health & Hospice, [address] [place] [address] Cardiac Rehab, [address] [place] [address] Transportation: family or friend will provide Functional status prior to admission: Independent Home Environment: Others in the home: alone. Current Living Arrangements: home/apartment/condo. Accessibility Concerns:a few steps to enter 1 floor home. Current Functional Ability: Assistive Person and Equipment DME used at home: none DME Needed at Discharge: N/A Patient is insured through: Primary Insurance: [employer] Payor: [facility] / Plan: [facility] PPO / Product Type: *No Product [...] pain managed with scheduled Tylenol. Worked with [employer]. Ambulated in the roque multiple times during [...] anticipated Patient is insured through: Primary Insurance: [employer] Payor: [facility] / Plan: [facility] PPO / Product Type: *No Product type* / Secondary Insurance: N/A Last Physical Therapy Recommendation: home with home health (Str coming to stay for a week or two upon d/c) with to be determined (owns rolling walker, shower seat) Plan for discharge is: Home w/ Services Outpatient Agency/Support Group Needs: Homecare agency Home Health Services: Physical Therapy, Registered Nurse Agency Referrals: [facility]. [address] [place] [address] Transportation: family or friend will provide Barriers to discharge: Discharge planning Plan going forward: Service Care Management will continue to follow and assist with discharge planning and coordination of care as indicated. Anticipated Date of Discharge: 02/22/2024 Rhett Bell RN RN/CM - Cellphone: [phone] Pager: [phone] Covering Service RN/CM * Plan of Care [...] Hypertension 08/14/2023 Nevus of face 09/26/2023 Right congregational Hospitalizations Within the Past 30 Days: no previous admission in last 30 days Current Decision-Making Capacity: Self If AD's have not been completed the following surrogate would be surrogate decision maker per [place] surrogate decision making law. (Only good for 180 days) Any patient receiving care in [place] must abide by [place] law. The hierarchy [...] (i) The agent with financial power of production associate or a conservator appointed in accordance with [...] steady place to sleep or slept in [facility] (including now)?: No In the past 12 months has the [employer], gas, oil, or water [employer] threatened to shut off services in your [...] [address] [facility] [address] Physical address: [address] [facility], [address] Social & Family Supports: All names listed [...] Payor: [facility] / Plan: [facility] PPO / Product Type: *No Product type* / Secondary Insurance: N/A ; Prescription Coverage: Yes Preferred Pharmacy: [id number] AT [address] [address] [place] Status: Patient is a : No Primary Care Provider confirmed: Aparna Jordan, TUBE REPAIRER [phone] Patient/Caregiver Goals of Treatment: dc to home Potential Needs for Transition of Care: home health care Agency Referrals: I have met with the patient to: discuss discharge planning needs. provide the [facility], Office of Care Management letter from the Senior Ui Ux Designer pertaining to rehab referrals. provide a letter describing our affiliations within the [facility] and educate about their right to choose where referrals are sent. provide a list of Home Health Agencies / Durable Medical Equipment vendors which serve their preferred geographic area. provided patient with [facility] Star Quality Rating handout. They have requested referrals to: [facility]. [address] [place] [address] Note routed to a Change House Attendant who will communicate referrals to facilities [...] Cielo, will be coming in from [place] on 02/18, to stay with him , [...] Reina Greene RN CM, BSN, CMGT- Ext [phone] * Plan of Care - Binta Trinidad [...] Operative Note Patient Name: Karlos Garcia : [id number] MR#: [id number] Case Date: 02/17/2024 Surgeon: Surgeon(s) and Role: * Hayder Graham MD - Primary * Neftali Menon PA - Physician Saw Filer Preoperative diagnosis: CAD Postoperative diagnosis: CAD, intraoperative [...] Operative Note Patient Name: Karlos Garcia : [id number] MR#: [id number] Case Date: 02/17/2024 Surgeon: Surgeons and Role: * Hayder Graham MD - Primary * Neftali Menon PA - Physician Saw Filer Preoperative diagnosis: CAD Postoperative diagnosis: CAD, intraoperative [...] Anesthesia: General / Jaylen Findings: CAD, intraoperative EMAM confirmed the presence of severe, bicuspid calcific [...] and Left pleural Disposition: [facility] Procedure Description: The patient was brought to [...] documented in this encounter Plan of Treatment Scheduled Orders Name Type Priority Associated Diagnoses [...] PM EDT BLOOD GAS ARTERIAL POC Routine 05/13/202 4 11:43 AM EDT BLOOD GAS ARTERIAL [...] Aortic Valve Open W Cardiopulmonary Bypass Homogrf/Stent (68982) Yes 02/17/2024 7:28 AM EDT CAD Cabg, Artery-Vein, Two (80391) Yes 02/17/2024 7:28 AM EDT CAD Cabg, Arterial, Single (63251) Yes 02/17/2024 7:28 AM EDT CAD Endoscopy W/Video-Asst Vein [place], Cabg (58607) Yes 02/17/2024 7:28 AM EDT CAD POCT [...] MD CHEMISTRY ORDERABLE S [facility] [place] [address] * (ABNORMAL) Basic Metabolic Panel (non-fasting) (02/23/2024 [...] Carpio MD CHEMISTRY ORDERABLES Performing Organization Address City/[facility]/ZIP Co de Phone Number [facility] [place] [address] * Potassium (02/22/2024 4:30 AM EDT) [facility] Potassium 3.5 3.5 - 5.0 mmol/L [place] [...] MD CHEMISTRY ORDERABLE S Performing Organization Address City/[facility]/ZIP Co de Phone Number [facility] [place] [address] * (ABNORMAL) Basic Metabolic Panel (non-fasting) (02/21/2024 [...] LABORATORY Carbon Dioxide Not Perf 22 - [facility] Comment:Add-on request. Samp le too [...] Carpio MD CHEMISTRY ORDERABLES Performing Organization Address City/[facility]/ZIP Co de Phone Number [facility] [place] [address] * Lactate, whole blood, send to lab ([facility]) (02/21/2024 9:45 AM EDT) [facility] Lactate WB 2.0 0.5 - 2.2 mmol/L [facility] Blood 02/21/2024 9:45 AM EDT 02/21/2024 9:52 AM EDT Narrative Resulting Agency Comment Spec In Lab Hayder Graham MD CHEMISTRY ORDERABLE S Performing Organization Address [facility] Co de Phone Number [facility] [place] [address] * (ABNORMAL) Hepatic Function Panel (02/21/2024 9:45 AM EDT) [facility] Protein, Total 5.7(L) 6.1 - 8.0 [...] MD CHEMISTRY ORDERABLE S Performing Organization Address City/[facility]/ZIP Co de Phone Number [facility] [place] [address] * Lipase (02/21/2024 9:45 AM EDT) [facility] Lipase 56 0 - 60 unit/L [facility] Blood 02/21/2024 9:45 AM EDT 02/21/2024 9:52 AM EDT Narrative Resulting Agency Comment Spec In Lab Hayder Graham MD CHEMISTRY ORDERABLE S Performing Organization Address [facility] Co de Phone Number [facility] [place] [address] * Amylase (02/21/2024 9:45 AM EDT) Amylase 69 28 - 100 unit/L [facility] Blood 02/21/2024 9:45 AM EDT 02/21/2024 9:52 AM EDT Narrative Resulting Agency Comment Spec In Lab Hayder Graham MD CHEMISTRY ORDERABLE S Performing Organization Address [facility] Phone Number [facility] [place] [address] * Potassium (02/21/2024 3:08 AM EDT) Potassium [...] MD CHEMISTRY ORDERABLE S Performing Organization Address [facility] Co de Phone Number [facility] [place] [address] * XR Chest PA & Lateral (Generic) (02/20/2024 10:19 AM EDT) WORKSTATION ID [id number] DH RAD Anatomical Region Laterality Modality Chest N/A Digital Radiogra phy Impressions 02/20/2024 1:11 PM EDT Small pleural effusions. No pneumothorax Thank you for letting us participate in the care of this patient. ??If you are a health care provider and have any questions regarding this report, please contact the number below. ??For patients who have questions please contact the health doggy daycare activities director that requested your imaging first. ? Electronically signed by: Rogerio Cruz MD, [facility] ??([phone]), at 02/20/2024 1:11 PM Narrative 02/20/2024 1:11 PM EDT EXAMINATION: XR CHEST PA AND LATERAL (GENERIC) CLINICAL HISTORY: s/p AVR/CABGx3 TECHNIQUE: PA and lateral views of the chest COMPARISON: 02/17/2024 FINDINGS: Support devices: Interval removal of Minerva-Kaila catheter, endotracheal tube and mediastinal chest tubes The cardiac silhouette is stable status post median sternotomy, CABG and aortic valve replacement. There are small pleural effusions. No pneumothorax. Procedure Note Rogerio Cruz MD - 02/20/2024 EXAMINATION: XR CHEST PA AND LATERAL (GENERIC) CLINICAL HISTORY: s/p AVR/CABGx3 TECHNIQUE: PA and lateral views of the chest COMPARISON: 02/17/2024 FINDINGS: Support devices: Interval removal of Minerva-Kaila catheter, endotracheal tubeand mediastinal chest tubes The [...] patients who have questions please contactthe health doggy daycare activities director that requested your imaging first. Hayder Graham MD IMG DX ORDERABLES * Scan, Peripheral Blood (02/20/2024 4:23 AM EDT) Pathologist [facility] Plat estimate Decreased [facility] RBC Morphology Normal [facility] Blood 02/20/2024 4:23 AM EDT 02/20/2024 4:42 AM EDT Narrative Resulting Agency Comment Spec In Lab Minnie FRENCH HEMATOLOGY CECILIO ALEMAN [facility] [place] [address] * (ABNORMAL) Differential, Automated (02/20/2024 4:23 AM EDT) [facility] Neutrophil % 81.7 % [facility] Neutrophil Absolute 10.37(H) 1.70 - 6.10 x10(3)/mc L [facility] Lymph % 7.4 % [facility] Lymphocytes Abs 0.9 0.9 - 3.2 x10(3)/mc L [facility] Monocyte % 9.7 % [facility] Monocyte Abs 1.2(H) 0.3 - 0.9 x10(3)/mc L [facility] Eos % 0.1 % [facility] Eosinophils Abs 0.0 0.0 - 0.4 x10(3)/mc L [facility] Basophil % 0.2 % [facility] Baso Absolute [...] FRENCH HEMATOLOGY CECILIO ALEMAN [facility] [place] [address] * (ABNORMAL) Hemogram (02/20/2024 4:23 AM EDT) White Blood Cell 12.7(H) 4.0 - 9.5 x10(3)/mc L [facility] [...] Platelet 88(L) 145 - 357 x10(3)/mc L [facility] RDW Standard Deviation 43.5 36.0 - 45.0 [facility] RDW coefficient of variation 13.7 11.4 - 13.8 % [facility] Mean Platelet Volume 10.2 7.6 - 12.9 [facility] NRBC% auto 0.0 % [facility] NRBC Absolute 0.000 0.000 - 0.000 x10(3)/mc L [facility] Blood 02/20/2024 4:23 AM EDT 02/20/2024 4:42 AM EDT Narrative Resulting Agency Comment Spec In Lab Minnie FRENCH HEMATOLOGY CECILIO ALEMAN [facility] [place] [address] * (ABNORMAL) Basic Metabolic Panel (non-fasting) (02/20/2024 4:23 AM EDT) Glucose 113 65 - 199 mg/dL [facility] Comment:Diabetes: >=200 mg/d L plus symptoms Blood Urea Nitrogen 20 10 - 20 mg/dL [facility] Comment:result rechecked-KS Creatinine 0.71(L) 0.80 - 1.50 mg/dL [facility] [...] MD CHEMISTRY ORDERABLE S Performing Organization Address [facility] Co de Phone Number [facility] [place] [address] * Potassium (02/19/2024 3:57 AM EDT) Potassium [...] MD CHEMISTRY ORDERABLE S Performing Organization Address [facility] Co de Phone Number [facility] [place] [address] * POCT Glucose (02/18/2024 8:24 AM EDT) Glucose, POC 157 65 - 199 mg/dL [facility] Comment: Supplemental ranges: <140 mg/dL before meals <180 mg/dL all other times of the day Blood 02/18/2024 8:24 AM EDT 02/18/2024 8:24 AM EDT Hayder Graham MD POINT OF CARE TEST ORDERABLES [facility] [place] [address] * Scan, Peripheral Blood (02/18/2024 1:40 AM EDT) Plat estimate Decreased [facility] RBC Morphology Normal [facility] Blood 02/18/2024 1:40 AM EDT 02/18/2024 1:56 AM EDT Narrative Resulting Agency Comment Spec In Lab Neftali FRENCH HEMATOLOGY ORDER OLE Performing Organization Address City/[facility]/ZIP Co de Phone Number [facility] [place] [address] * (ABNORMAL) Differential, Automated (02/18/2024 1:40 AM EDT) [facility] Neutrophil % 87.1 % [facility] Neutrophil Absolute 15.03(H) 1.70 - 6.10 x10(3)/mc L [facility] Lymph % 3.0 % [facility] Lymphocytes Abs 0.5(L) 0.9 - 3.2 x10(3)/mc L [facility] Monocyte % 9.1 % [facility] Monocyte Abs 1.6(H) 0.3 - 0.9 x10(3)/mc L [facility] Eos % 0.0 % [facility] Eosinophils Abs 0.0 0.0 - 0.4 x10(3)/mc L [facility] Basophil % 0.2 % [facility] Baso Absolute [...] FRENCH HEMATOLOGY ORDER OLE [facility] [place] [address] * (ABNORMAL) Hemogram (02/18/2024 1:40 AM EDT) White Blood Cell 17.2(H) 4.0 - 9.5 x10(3)/ L [facility] Platelet 147 145 - 357 x10(3)/ L [facility] RDW Standard Deviation 39.9 36.0 - 45.0 [facility] RDW coefficient of variation 13.2 11.4 - 13.8 % [facility] Mean Platelet Volume 9.9 7.6 - 12.9 fL [facility] NRBC% auto 0.0 % [facility] NRBC Absolute 0.000 0.000 - 0.000 x10(3)/mc L [facility] Blood 02/18/2024 1:40 AM EDT 02/18/2024 1:56 AM EDT Narrative Resulting Agency Comment Spec In Lab Neftali FRENCH HEMATOLOGY ORDER OLE [facility] [place] [address] * (ABNORMAL) Basic Metabolic Panel (non-fasting) (02/18/2024 [...] MD CHEMISTRY ORDERABLE S Performing Organization Address City/[facility]/ZIP Co de Phone Number [facility] [place] [address] * (ABNORMAL) Troponin (02/18/2024 1:40 AM EDT) Pathologist [facility] Troponin-T, High Sensitivity 342(H) <=22 ng/L [facility] [...] troponin value can be found in the [facility] Test Catalog Troponin - [facility] Test Catalog Reference: Fourth Dracut Definition of Myocardial Infarction. Journal of the [employer] 2018;72:4333-6718 Blood 02/18/2024 1:40 AM EDT 02/18/2024 1:56 AM EDT Narrative Resulting Agency Comment Spec In Lab Hayder Graham MD CHEMISTRY ORDERABLE S Performing Organization Address City/[facility]/ZIP Co de Phone Number [facility] [place] [address] * POCT Glucose (02/17/2024 8:13 PM EDT) Glucose, POC 142 65 - 199 mg/dL [facility] Comment: Supplemental ranges: <140 mg/dL before meals <180 mg/dL all other times of the day Blood 02/17/2024 8:13 PM EDT 02/17/2024 8:13 PM EDT Hayder Graham MD POINT OF CARE TEST ORDERABLES Performing Organization Address City/[facility]/ZIP Co de Phone Number [facility] [place] [address] * POCT Glucose (02/17/2024 5:42 PM EDT) Glucose, POC 160 65 - 199 mg/dL [facility] Comment: Supplemental ranges: <140 mg/dL before meals <180 mg/dL all other times of the day Blood 02/17/2024 5:42 PM EDT 02/17/2024 5:42 PM EDT Hayder Graham MD POINT OF CARE TEST ORDERABLES Performing Organization Address City/[facility]/ZIP Co de Phone Number [facility] [place] [address] * Hemoglobin (02/17/2024 5:42 PM EDT) Hemoglobin 13.7 13.7 - 16.5 g/dL [facility] Blood 02/17/2024 5:42 PM EDT 02/17/2024 6:10 PM EDT Narrative Resulting Agency Comment Spec In Lab Hayder Graham MD HEMATOLOGY ORDERABL ES [facility] [place] [address] * Potassium (02/17/2024 5:42 PM EDT) Potassium [...] MD CHEMISTRY ORDERABLE S Performing Organization Address City/State/[facility] Co de Phone Number [facility] [place] [address] * (ABNORMAL) BLOOD GAS 2 ARTERIAL (02/17/2024 [...] [facility] FIO2 Art 40 % [facility] PF Ratio Art 195 [facility] Blood 02/17/2024 4:18 PM EDT 02/17/2024 4:18 PM EDT Hayder Graham MD POINT OF CARE TEST ORDERABLES [facility] [place] [id number] * XR Chest One View (02/17/2024 1:44 PM EDT) [employer] WORKSTATION ID [id number] DH RAD Anatomical Region Laterality Modality Chest N/A Digital Radiogra phy Impressions 02/17/2024 2:12 PM EDT 1. ??No definite pleural fluid collection or pneumothorax. 2. ??Right IJ Minerva-Kaila catheter tip terminates in a descending branch of the right pulmonary artery. Suggest catheter retraction. 3. ??Additional support lines and tubes as above. Thank you for letting us participate in the care of this patient. ??If you are a health care provider and have any questions regarding this report, please contact the number below. ??For patients who have questions please contact the health doggy daycare activities director that requested your imaging first. ? Electronically signed by: Denzel Hankins MD, [facility] ??([phone]), at 02/17/2024 2:12 PM Narrative 02/17/2024 2:12 PM EDT EXAMINATION: XR CHEST ONE VIEW CLINICAL HISTORY: s/p avr/cabg eval effusions TECHNIQUE: 1 view of the chest COMPARISON: Chest x-ray 01/09/2024, chest CT 02/03/2024 FINDINGS: ET tube tip terminates 5.2 cm above the carlos. Right IJ Minerva-Kaila catheter tip terminates in a descending branch [...] 5.2 cm above the carlos. Right IJ Minerva-Ganzcatheter tip terminates in a descending branch of [...] fluid collection or pneumothorax. 2. Right IJ Minerva-Kaila catheter tip terminates in a descending branch ofthe right pulmonary artery. Suggest catheter retraction. 3. Additional support lines and tubes as above. Thank you for letting us participate in the care of this patient. If youare a health care provider and have any questions regarding this report,please contact the number below. For patients who have questions please contactthe health doggy daycare activities director that requested your imaging first. Electronically signed by: Denzel Hankins MD, [facility]([phone]), at 02/17/2024 2:12 PM Hayder Graham MD [...] [facility] FIO2 Art 100 % [facility] PF Ratio Art 320 [facility] Blood 02/17/2024 1:31 PM EDT 02/17/2024 1:31 PM EDT Hayder Graham MD POINT OF CARE TEST ORDERABLES Performing Organization Address City/[facility]/ZIP Co de Phone Number [facility] [place] [address] * (ABNORMAL) Coox2 (02/17/2024 1:21 PM EDT) [...] OF CARE TEST ORDERABLES Performing Organization Address City/[facility] Co de Phone Number [facility] [place] [address] * (ABNORMAL) BLOOD GAS 2 ARTERIAL (02/17/2024 [...] OF CARE TEST ORDERABLES Performing Organization Address [facility] Co de Phone Number [facility] [place] [address] * (ABNORMAL) Fibrinogen (02/17/2024 12:10 PM EDT) [...] MD HEMATOLOGY ORDERABLE S Performing Organization Address [facility] Co de Phone Number [facility] [place] [address] * (ABNORMAL) Thrombin time (02/17/2024 12:10 PM [...] MD HEMATOLOGY ORDERABLE S Performing Organization Address [facility] de Phone Number [facility] [place] [address] * APTT (02/17/2024 12:10 PM EDT) Partial [...] HEMATOLOGY ORDERABLE S Performing Organization Address [facility] de Phone Number [facility] [place] [address] * (ABNORMAL) Prothrombin Time (02/17/2024 12:10 PM [...] MD HEMATOLOGY ORDERABLE S [facility] [place] [address] * (ABNORMAL) Hemogram (02/17/2024 12:10 PM EDT) [...] RDW Standard Deviation 40.2 36.0 - 45.0 [facility] RDW coefficient of variation 12.8 11.4 - 13.8 % [facility] Mean Platelet Volume 9.5 7.6 - 12.9 fL [facility] NRBC% auto 0.0 % [facility] NRBC Absolute 0.000 0.000 - 0.000 x10(3)/mc L [facility] Blood 02/17/2024 12:1 0 PM EDT 02/17/2024 12:19 PM EDT Narrative Resulting Agency Comment Spec In Lab Tara York MD HEMATOLOGY ORDERABLE S [facility] [place] [address] * (ABNORMAL) BLOOD GAS 2 ARTERIAL (02/17/2024 [...] mmol/L [facility] Comment: Noted by instrument man. Please note: Patients with WBC >100,000 may [...] OF CARE TEST ORDERABLES [facility] [place] [address] * (ABNORMAL) BLOOD GAS 2 ARTERIAL (02/17/2024 [...] mmol/L [facility] Comment: Noted by instrument man. Please note: Patients with WBC >100,000 may [...] OF CARE TEST ORDERABLES Performing Organization Address [facility] Co de Phone Number [facility] [place] [address] * (ABNORMAL) Hemoglobin and Hematocrit, blood (02/17/2024 11:04 AM EDT) Hemoglobin 9.6(L) 13.7 - 16.5 g/dL [facility] [...] MD HEMATOLOGY ORDERABL ES Performing Organization Address [facility]/ZIP Co de Phone Number [facility] [place] [address] * (ABNORMAL) Platelet count (02/17/2024 11:04 AM EDT) Platelet 106(L) 145 - 357 x10(3)/mc L [facility] Immature Plt % 1.6 0.0 - 7.4 % [facility] Comment: Limitation of the Immature Platelet Fraction (IPF)-May be less reliable when the platelet count is less than 57a453/uL due to statistical imprecision. The IPF value [...] in a decreased state of production. References: [employer] The Clinical Value of the Immature Platelet Fraction (IPF) in Cell Recovery Document Number [id number] 03/2011 [employer] The Role of the Immature Platelet Fraction (IPF) in the Differential Diagnosis of Thrombocytopenia, Document [id number] V002/15/14 P002/17 Blood 02/17/2024 11:0 4 AM EDT 02/17/2024 11:12 AM EDT Narrative Resulting Agency Comment Spec In Lab Hayder Graham MD HEMATOLOGY ORDERABL ES Performing Organization Address [facility] Co de Phone Number [facility] [place] [address] * (ABNORMAL) Fibrinogen (02/17/2024 11:04 AM EDT) [...] MD HEMATOLOGY ORDERABL ES [facility] [place] [address] * (ABNORMAL) BLOOD GAS 2 ARTERIAL (02/17/2024 [...] OF CARE TEST ORDERABLES [facility] [place] [address] * (ABNORMAL) BLOOD GAS 2 ARTERIAL (02/17/2024 [...] OF CARE TEST ORDERABLES [facility] [place] [address] * Surgical Pathology Report (02/17/2024 10:01 AM EDT) Final Diagnosis [id number] ? Location: [facility]; [facility]; [facility] Dept. of Pathology, [place] [address] Senior Ui Ux Designer: Job Brewer MD, AP, ??IA Certificate: [id number] SPECIMEN(S) SUBMITTED A - Aortic Valve Leaflets, [...] Sections Processing Blocks submitted for decalcification: A1. Economic Research Analyst sections in 1 cassette labeled A1. ??ajw 02/24/2024 1:49 PM EDT [facility] AORTIC STRUCTURE / Unknown 02/17/2024 10:01 AM EDT 02/17/2024 10:01 AM EDT Hayder Graham MD PATHOLOGY/[place] [address] * Specimen to Pathology (02/17/2024 10:01 AM EDT) AP Specimen 02/17/2024 10:0 1 AM EDT 02/17/2024 10:01 AM EDT Narrative [facility] - 02/17/2024 10:01 AM EDT Specimen requisition ordered. ??Separate Pathology report to follow Hayder Graham MD PATHOLOGY/CYTOLOGY ORDERABLES [facility] [place] [address] * (ABNORMAL) BLOOD GAS 2 ARTERIAL (02/17/2024 [...] OF CARE TEST ORDERABLES [facility] [place] [address] * (ABNORMAL) BLOOD GAS 2 VENOUS (02/17/2024 9:34 AM EDT) pH, Venous 7.22(Criti marquez) 7.32 - 7.42 [facility] Comment:Noted by instrument man. PCO2, Venous 43 41 - 51 mmHg [facility] Comment:Noted by instrument man. PO2, Venous 57(H) 25 - 40 mmHg [facility] Comment:Noted by instrument man. Bicarbonate, Venous 17.1 mmol/L [facility] Comment:Noted by instrument man. Base Excess, Venous -10.6 mmol/L [facility] Comment:Noted by instrument man. Hgb Blood Gas 11.2(L) 13.7 - 16.5 g/dL [facility] Comment:Noted by instrument man. Oxyhemoglobin, Venous 86.5 % [facility] Comment:Noted by instrument man. Carboxyhemoglob in, Venous 0.3 % [facility] Comment: Noted by instrument man. Nonsmokers: 0.5-1.5% COHB Smokers: Variable, but usually less than 10% Toxic: 20-30% COHB Lethal: Greater than 60% COHB Methemoglobin, Venous 0.0 <=1.5 % [facility] Comment:Noted by instrument man. Na Whole Blood 156(H) 135 - 145 mmol/L [facility] Comment:Noted by instrument man. K Whole Blood 5.5(H) 3.5 - 5.0 mmol/L [facility] Comment: Noted by instrument man. Please note: Patients with WBC >100,000 may have falsely elevated Potassium levels. Contact the Clinical Chemistry Laboratory if there are any questions. ICa Whole Blood 1.03(L) 1.15 - 1.33 mmol/L [facility] Comment: Noted by instrument man. Note: ??Total bilirubin higher than 20 mg/dL may lead to falsely low ionized calcium. CL Whole Blood 100 98 - 107 mmol/L [facility] Comment:Noted by instrument man. Gluc Whole Bld 132 65 - 199 mg/dL [facility] Comment: Noted by instrument man. Diabetes: >=200 mg/dL plus symptoms Lactate WB 1.0 0.5 - 2.2 mmol/L [facility] Comment:Noted by instrument man. Blood Gas Source Venous [facility] Blood 02/17/2024 9:34 AM EDT 02/17/2024 9:34 AM EDT Hayder Graham MD POINT OF CARE TEST ORDERABLES [facility] [place] [address] * (ABNORMAL) BLOOD GAS 2 ARTERIAL (02/17/2024 [...] OF CARE TEST ORDERABLES Performing Organization Address [facility] Co de Phone Number [facility] [place] [address] * POCT Glucose (02/17/2024 6:38 AM EDT) Glucose, POC 98 65 - 199 mg/dL [facility] Comment: Supplemental ranges: <140 mg/dL before meals <180 mg/dL all other times of the day Blood 02/17/2024 6:38 AM EDT 02/17/2024 6:38 AM EDT Hayder Graham MD POINT OF CARE TEST ORDERABLES Performing Organization Address [facility] Co de Phone Number [facility] [place] [phone] * Transesophageal Echo/OR (02/17/2024 6:33 AM EDT) [...] [facility] [...] over 10 Minutes, ONCE, 1 dose, On Sat02/20/24 at 0700, Warning Vesicant/Irritant Medication , Routine [...] 6 hours upon arrival to Unit. Give [place] if unable to take PO, Routine Given [...] dose on Sat02/17/24 at 1400, Until Discontinued, [place] teeth and / or gums. Scan the CHG vial in the [facility] Q-Care Oral Care Kit from floor stock. Ventilator-associated pneumonia prophylaxis For use in ICU/Critical care locations ONLY. Obtain kit from Floor Stock location. Scan CHG vial in the [facility] Q-Care Oral Care Kit, Routine Given [...] restart at 50% of previous rate. Call superintendent warehouse if goal not achieved at maximum rate. [...] 25 mg, Oral, ONCE, 1 dose, [facility], Routine Given 02/22/2024 10:02 AM EDT 25 mg metoprolol tartrate (Lopressor) tablet 50 mg 50 mg, Oral, EVERY 12 HOURS SCHEDULED (2 times per day), First dose (after last modification) [facility] at 2100, Until Discontinued, Hold for [...] PHENYLephrine and/or vasopressin ineffective. Call pager # [phone] if initiated. Titrate to keep systolic blood [...] 2.0 L/min/M2. Maximum volume 2 L. Call superintendent warehouse for additional fluid orders: pager #[phone]. Rate/Dose Verify 02/18/2024 8:00 AM EDT 1 mL/hr 1 mL/hr Rate/Dose Verify 02/18/2024 6:00 AM EDT 1 mL/hr 1 mL/hr Rate/Dose Verify 02/18/2024 4:00 AM EDT 1 mL/hr 1 mL/hr sodium chloride 0.9% infusion 10-30 mL/hr, Intravenous, DAILY PRN, Starting on Sat02/17/24 at 1307, Until Sat02/18/24 at 0835, Side port TKO rate, per [facility] nursing protocol. Rate/Dose Verify 02/17/2024 8:00 PM EDT 30 mL/hr 30 mL/hr Rate/Dose Verify 02/17/2024 6:00 PM EDT 30 mL/hr 30 mL/h r Rate/Dose Verify 02/17/2024 5:00 PM EDT 30 mL/hr 30 mL/h r sodium chloride 0.9% infusion 10-30 mL/hr, Intravenous, DAILY PRN, Starting on Sat02/17/24 at 1307, Until Sat02/18/24 at 0835, Side port TKO rate, per CC nrusing protocol. Rate/Dose Verify 02/18/2024 8:00 AM [...] Merrill RN)1701 (Given - Provider: Mishel Merrill, COLBY)2324 (Given [...] RN) 0907 (Given - Provider: Mishel Merrill RN)2114 (Given - Provider: Otis Crook, COLBY) 0836 [...] Britton, COLBY) 09 (Given - Provider: Mishel Merrill RN)2116 (Given - Provider: Otis Crook, COLBY) 0843 (Given - Provider: Jazlyn Maldonado RN) [...] Mishel Merrill, COLBY)2117 (Given - Provider: Otis Croko RN) 0836 (Given - Provider: Jazlyn Maldonado, COLBY) lidocaine (Lidoderm) 5% patch 1 patch 1 patch, Transdermal, Administer over 12 Hours, DAILY, First dose on Sat02/18/24 at 1445, Until Discontinued, Apply patch(es) for 12 hours, and then remove for 12 hours., Routine 0822 (Patch Applied - Provider: Reilly Vincent, COLBY)2021 (Patch Removed - Provider: Polo Britton, COLBY) [...] Routine 09 (Given - Provider: Mishel Merrill, COLBY)2114 (Given [...] SBP<90, Routine 2056 (Given - Provider: Polo Britton, COLBY) pantoprazole EC (Protonix) tablet 40 mg(Linked Group [...] Discontinued, Routine 0130 (Given - Provider: Polo Britton, COLBY)0930 (Given - Provider: Reilly Vincent RN)1708 (Given - Provider: Ingrid Menjivar, COLBY) 0130 (Given - Provider: Polo Britton RN)0908 (Given - Provider: Mishel Merrill, COLBY)1701 (Given - Provider: Mishel Merrill, RN)2325 (Given - Provider: Otis Crook, COLBY) 0930 (Not Given - Provider: Jazlyn Maldonado [...] Polo Britton, COLBY)0817 (Given - Provider: Reilly Vnicent RN)1409 (Given - Provider: Ingrid Menjivar RN)2101 [...] Routine documented in this encounter Care Teams Medication Manager Relationship Specialty Start Date End Date Aparna Jordan APRN PCP - General Family Medicine 10/21/23 05/26/24 documented as of this encounter
--- OUTSIDE RECORDS SUMMARY | 2024-07-16 09:59 | XMS_ITS | Encounter Summary ---
Author Organization [facility] [place] [place] [address] Care Team Providers Care Help Desk Support Name Role Phone Vanessa Christian MAURI Primary Care Provider [phone] Encounter Details Date Type Department Care Team [...] on filedocumented in this encounter Care Teams Help Desk Support Relationship Specialty Start Date End Date Vanessa Christian APRN PCP - General Family Medicine 10/21/23 05/26/24 documented as of this encounter
--- OUTSIDE RECORDS SUMMARY | 2024-07-16 09:59 | XMS_ITS | Encounter Summary ---
Author Organization [facility] Address [facility] [place] [address] Care Team Providers Care Slip Caster Name Role Phone Vanessa Christian MAURI Primary Care Provider [phone] Encounter Details Date Type Department Care Team [...] on filedocumented in this encounter Care Teams Slip Caster Relationship Specialty Start Date End Date Vanessa Christian APRN PCP - General Family Medicine 10/21/23 05/26/24 documented as of this encounter
--- OUTSIDE RECORDS SUMMARY | 2024-07-16 09:59 | XMS_ITS | Encounter Summary ---
Author Organization [facility] Address [facility] [place] [address] Care Team Providers Care Die Repairer Forging Name Role Phone Gino Vanessa Lane DOTSON Primary Care Provider [phone] Encounter Details Date Type Department Care Team (Late st Contact Info) Description 02/24/2024 Orders Only Cardiac Surgery [facility] [place] [id number] Trudi Lester APRN [facility] [place] [address] Social History Tobacco Use Types Packs/Day Years Used Date Smoking Tobacco: Former Cigarettes Smokeless Tobacco: Never Comments:Quit 15 + years ago Alcohol Use Standard Drinks/Week Comments Yes 0 (1 standard drink = 0.6 oz pur e alcohol) rare [facility] Utilities Answer Date Recorded In the past 12 months has e [employer], gas, oil, or water Jobs [employer] threatened to shut off services in your [...] on filedocumented in this encounter Care Teams Die Repairer Forging Relationship Specialty Start Date End Date Vanessa Christian APRN PCP - General Family Medicine 10/21/23 05/26/24 documented as of this encounter
--- OUTSIDE RECORDS SUMMARY | 2024-07-16 09:59 | XMS_ITS | Encounter Summary ---
Author Organization [facility] Address [facility] [place] [address] Care Team Providers Care Cell Biology Scientist Name Role Phone Vanessa Christian MAURI Primary Care Provider [phone] Encounter Details Date Type Department Care Team (Latest Contact Info) Description 03/12/2024 1:30 PM EDT - 03/12/2024 11:59 PM EDT Hospital Encounter XRay at [address] [place] [address] Coronary artery disease, unspecified vessel or lesion type, unspecified whether angina present, unspecified whether [place] or transplanted heart Discharge Disposition: Home Social History Tobacco Use Types Packs/Day Years Used Date Smoking Tobacco: Former Cigarettes Smokeless Tobacco: Never Comments:Quit 15 + years ago Alcohol Use Standard Drinks/Week Comments Yes 0 (1 standard drink = 0.6 oz pur e alcohol) rare [facility] Utilities Answer Date Recorded In the past 12 months has e [employer], gas, oil, or water [employer] threatened to shut off services in your [...] type, unspecified whether angina present, unspecified whether [place] or transplanted heart documented in this encounter Results * XR Chest PA & Lateral (Generic) (03/12/2024 1:42 PM EDT) WORKSTATION ID [id number] RAD Anatomical Region Laterality Modality Chest N/A [...] questions please contact the health child care attendant school that requested your imaging first. ? Narrative 03/13/2024 8:28 AM EDT EXAMINATION: XR CHEST PA AND LATERAL (GENERIC) CLINICAL HISTORY: s/p cabg eval effusions I25.10, Atherosclerotic heart disease of [place] coronary artery without angina pectoris TECHNIQUE: [...] eval effusions I25.10, Atherosclerotic heart disease of [place] coronary artery withoutangina pectoris TECHNIQUE: PA [...] have questions please contactthe health child care attendant school that requested your imaging first. Zak Farmer MD IMG DX ORDERABLES documented in this encounter Visit Diagnoses Diagnosis Coronary artery disease, unspecified vessel or lesion type, unspecified whether angina present, unspecified whether [place] or transplanted heart documented in this encounter Care Teams Cell Biology Scientist Relationship Specialty Start Date End Date Vanessa Christian APRN PCP - General Family Medicine 10/21/23 05/26/24 documented as of this encounter
--- OUTSIDE RECORDS SUMMARY | 2024-07-16 09:59 | XMS_ITS | Encounter Summary ---
Author Organization [facility] Address [facility] [place] [address] Care Team Providers Care Rubber Roller Grinder Name Role Phone Vanessa Christian CUSTOMS COMPLIANCE DIRECTOR Primary Care Provider [phone] Encounter Details Date Type Department Care Team (Late st Contact Info) Description 03/12/2024 2:40 PM EDT Office [place] [id number] Zak Farmer MD [facility] [place] [address] Coronary artery disease, unspecified vessel or lesion type, unspecified whether angina present, unspecified whether [place] or transplanted heart Social History Tobacco Use Types Packs/Day Years Used Date Smoking Tobacco: Former Cigarettes Smokeless Tobacco: Never Comments:Quit 15 + years ago Alcohol Use Standard Drinks/Week Comments Yes 0 (1 standard drink = 0.6 oz pur e alcohol) rare [facility] Utilities Answer Date Recorded In the past 12 months has e [employer], gas, oil, or water [employer] threatened to shut off services in your [...] 2:40 PM EDT To: MD Vanessa Coles, CUSTOMS COMPLIANCE DIRECTOR Re; Karlos Santa ( 1960) We had [...] office. Best personal regards, Zak Farmer MD [phone] documented in this encounter Plan of Treatment Not on file documented as of this encounter Procedures Procedure Name Priority Date/Time Associated Diagnosis Comments EKG 12-LEAD Routine 03/12/2024 2:35 PM EDT Coronary artery disease, unspecified vessel or lesion type, unspecified whether angina present, unspecified whether [place] or transplanted heart documented in this encounter Results * EKG 12 Lead (03/12/2024 2:35 PM EDT) Ventricular rate 59 BPM MUSE SYSTEM Atrial Rate 59 BPM MUSE SYSTEM P-R Interval 190 ms MUSE SYSTEM QRS Duration 92 ms MUSE SYSTEM Q-T Interval 406 ms MUSE SYSTEM QTC Calculated (Bezet) 401 ms MUSE SYSTEM Calculated P Reedy -12 degrees MUSE SYSTEM Calculated R Reedy 24 degrees MUSE SYSTEM Calculated T Reedy 74 degrees MUSE SYSTEM INTERPRETATION Sinus bradycardia T wave abnormality, consider anterior ischemia Abnormal ECG When compared with ECG of 17-FEB-2024 13:24, [place] interval has decreased T wave inversion now evident in Anterior leads Confirmed by Paul Guzman ([id number]) on 03/15/2024 8:36:23 AM MUSE SYSTEM 03/12/2024 2:35 PM EDT 03/15/2024 8:36 AM EDT Zak Farmer MD ECG ORDERABLES [employer] SYSTEM documented in this encounter Visit Diagnoses Diagnosis Coronary artery disease, unspecified vessel or lesion type, unspecified whether angina present, unspecified whether [place] or transplanted heart documented in this encounter Care Teams Rubber Roller Grinder Relationship Specialty Start Date End Date Vanessa Christian, MAURI PCP - General Family Medicine 10/21/23 05/26/24 documented as of this encounter
[2024-07-16 10:00] VITALS: BP 140/73; PULSE 46
--- OUTSIDE RECORDS SUMMARY | 2024-07-16 10:00 | XMS_ITS | Encounter Summary ---
Author Organization [facility] [place] [address] Care Team Providers Care Wax Pattern Assembler Name Role Phone Vanessa Christian MAURI Primary Care Provider [phone] Reason for Visit * Auth/Cert (Routine) Specialty [...] (WRVU 7.93) Zak Farmer MD [facility] CARDIOTHORACIC [place] [address] [facility] Referral ID Status Reason Start Date Expiration Date Visits Re quested Visits Authorized [id number] 1 1 Encounter Details Date Type Department Care Team (Late st Contact Info) Description 02/17/2024 7:35 AM EDT Anesthesia Event Main Operating Room [facility] [place] [phone] Roman York MD [facility] [place] [address] Anesthesia Record Procedure Summary Procedure Name Responsible [...] by Sadiq Woo RN PIV 02/17/24; 0715; [id number] catheter system; 18 gauge; cephalic vein (lateral [...] th e electric, gas, oil, or water [employer] threatened to shut off services in your [...] Procedure Summary Date: 02/17/24 Room / Location: [facility] OR [address] [place] [address] MAIN OR Anesthesia Start: 734 Anesthesia Stop: [...] shown include unfiled device data. [facility] Level of Consciousness: Sedated (Pharmacologic/Intentional) [...] Miscellaneous Notes * Addendum Note - Roman Yokr MD - 02/17/2024 3:26 PM EDT Addendum [...] mg documented in this encounter Care Teams Wax Pattern Assembler Relationship Specialty Start Date End Date Vanessa Christian APRN PCP - General Family Medicine 10/21/23 05/26/24 documented as of this encounter
--- OUTSIDE RECORDS SUMMARY | 2024-07-16 10:00 | XMS_ITS | Encounter Summary ---
Author Organization [facility] Address [facility] [place] [address] Care Team Providers Care Medical Affairs Leader Name Role Phone Vanessa Christian MAURI Primary Care Provider [phone] Encounter Details Date Type Department Care Team (Latest Contact Info) Description 01/09/2024 3:02 PM EDT - 01/09/2024 11:59 PM EDT Hospital Encounter XRay at [address] [place] [address] Zak Farmer MD [facility] [place] [address] Nonrheumatic aortic valve stenosis Discharge Disposition: Home Social History Tobacco Use Types Packs/Day Years Used Date Smoking Tobacco: Former Cigarettes Smokeless Tobacco: Never Comments:Quit 15 + years ago Alcohol Use Standard Drinks/Week Comments Yes 0 (1 standard drink = 0.6 oz pur e alcohol) rare [facility] Inpatient Questions Answer Date Recorded [...] have questions please contact the health child daycare worker that requested your imaging first. ? Electronically signed by: Toby Dave MD, [facility] ([phone]), at 01/09/2024 3:11 PM Narrative 01/09/2024 3:11 [...] who have questions please contactthe health child daycare worker that requested your imaging first. Zak Farmer MD IMG DX ORDERABLES documented in this encounter Visit Diagnoses Diagnosis Nonrheumatic aortic valve stenosis Aortic valve disorders documented in this encounter Care Teams Medical Affairs Leader Relationship Specialty Start Date End Date Vanessa Christian APRN PCP - General Family Medicine 10/21/23 05/26/24 documented as of this encounter
--- OUTSIDE RECORDS SUMMARY | 2024-07-16 10:00 | XMS_ITS | Encounter Summary ---
[facility] [place] [address] Care Team Providers Care Retarder Operator Name Role Phone Aparna Jordan MAURI Primary Care Provider [phone] Reason for Visit * Auth/Cert (Routine) Specialty [...] Graham MD [facility] CARDIOTHORAC[facility] [place] [address] [facility] Referral ID Status Reason Start Date Expiration Date Visits Re quested Visits Authorized [id number] 1 1 Encounter Details Date Type Department Care Team (Late st Contact Info) Description 02/17/2024 7:30 AM EDT - 02/17/2024 1:26 PM EDT [place] [id number] Hayder Graham MD [facility] CARDI[facility] [place] [address] ENDOSCOPIC HARVEST VEIN(S) FOR CABG (WRVU 0.31) [...] Patient Age: 63 y.o. Birthdate: 1960 Language: East Timorese Race: White Ethnicity: Not nor Admit Date: 02/17/2024 Discharge Date: 02/24/24 Attending Physician: Hayder Graham MD Follow-up Recommendations for Providers: Please continue routine management of cardiovascular risk factors including blood pressure, lipids,glucose, etc. Please note any changes to medications. Patient to follow up with PCP, Aparna Jordan APRN, in 1-2 weeks. Patient to follow up with Communication Clerk, Neftali Ernandez MD , in 2 weeks. Patient to follow up with Cardiac Surgeon, Dr. Hayder Graham, with a chest x-ray, EKG, and Echo. 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 Right islam Past Surgical History: Procedure Laterality Date PRO CABG, ARTERIAL, SINGLE N/A 02/17/2024 @CABG, USING ARTERIAL GRAFT;SINGLE ARTERIAL GRAFT (WRVU 33.75) performed by Hayder Graham MD at [facility] MAIN OR PRO CABG, ARTERY-VEIN, TWO N/A 02/17/2024 @CABG, TWO VENOUS GRAFTS & ARTERIAL GRAFT (WRVU 7.93) performed by Hayder Graham MD at [facility] MAIN OR PRO ENDOSCOPY W/VIDEO-ASST VEIN HARVEST, CABG Left 02/17/2024 ENDOSCOPIC HARVEST VEIN(S) FOR CABG (WRVU 0.31) performed by Hayder Graham MD at [facility] MAIN OR PRO REPLACEMENT PROSTHETIC AORTIC VALVE OPEN W CARDIOPULMONARY BYPASS HOMOGRF/STENT N/A 02/17/2024 @REPLACE AORTIC VALVE, OPEN, W\CPB, W\PROSTHETIC VALVE (WRVU 41.32) performed by Hayder Graham MD at [facility] MAIN OR Prior To Admission [...] insufficiency. He has glaucoma. He used to bacAWAK until about 15 years ago. He has undergone prior herniorrhaphy. 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 Major Procedures/Operations: 02/17/24 s/p avr/cabgx3 CABG x 3 JOSE->LAD SVG->dRCA SVG->OM1 EVH from LLE AVR with a 23 mm Inspiris Bioprosthesis Hospital Course: Karlos Garcia was admitted to [facility] on 02/17/2024 via the Same [...] Hayder Graham and/or the Cardiac Surgery Physician Respiratory Therapist Assistant Team may be reached at . [...] Dr. Hayder Graham. You may use a [place] Track or treadmill but avoid any pulling [...] friends, go to a movie, go to oriental orthodox, etc. Heavy activities: No hunting, skiing, jogging, [...] while being managed by your PCP and/or Communication Clerk. For future medication refills, please refer to your PCP and/or Communication Clerk after your discharge from our service. Thank you REMOVE CHEST TUBE SUTURES ON OR AFTER 03/02/24 Home oxygen therapy: N/A Follow up appointments: You should follow up with your PCP, Aparna Jordan APRN, in 1-2 weeks. Our office will schedule an appointment with your Communication Clerk, Neftali Ernandez MD , in 2 [...] Future Orders Complete By Expires Echocardiogram Transthoracic [66060 CPT(R)] 03/26/2024 09/25/2024 Process Instructions: Scheduling Instructions: Questions: Where will study be performed?: [facility] Clinics Does the patient have Congenital Heart Disease?: Does patient require sedation?: Sedation rationale: XR Chest PA & Lateral (Generic) [41743 87952 Custom] 03/26/2024 09/25/2024 Process Instructions: Scheduling Instructions: Questions: Portable exam?: Reason for exam and clinical history: s/p avr/cabg Clinical information / jerome questions for radiologist: Stat read required?: Date of injury if applicable: Requested Time: Where will study be performed?: [facility] Radiology Referral to Cardiac Rehab [BMP257 Custom] As directed Process Instructions: If no [...] admission to Home Health. [address] Phone Number: Date of : 1960 Inpatient DOCUMENTATION FOR VNA SERVICES (INCLUDING THOSE PATIENTS WITH MEDICARE COVERAGE REQUIRING HOME VNA SERVICES AND/OR HOSPICE SERVICES) PATIENT'S LOCATION: Karlos Garcia [address] [place] [phone] Floor Scrubber's Name: self/family In discussion with the attending physician, it is certified that this patient is under their care and that they, or a Nurse Practitioner, or Physician Respiratory Therapist Assistant who is working directly with them, [...] for services as follows: HOME HEALTH AGENCY: [facility] [address] [place] [id number] RN orders: Cardiopulmonary assessment, incisional assessment, assess [...] issues please call the Cardiology Office at [phone] FOR MEDICARE ONLY: (please delete this section [...] As above. Signed: NEFTALI MENON PA-C [facility] Section of Cardiac Surgery [facility] [address] FAX [phone] Date: 02/24/2024 CC: Aparna Jordan, MAURI Jordan, Aparna Sherman APRN [address] [place] [address] documented in this encounter Discharge Instructions * [...] Hayder Graham and/or the Cardiac Surgery Physician Respiratory Therapist Assistant Team may be reached at . [...] Dr. Hayder Graham. You may use a [place] Track or treadmill but avoid any pulling [...] friends, go to a movie, go to oriental orthodox, etc. Heavy activities: No hunting, skiing, jogging, [...] while being managed by your PCP and/or Communication Clerk. For future medication refills, please refer to your PCP and/or Communication Clerk after your discharge from our service. Thank you REMOVE CHEST TUBE SUTURES ON OR AFTER 03/02/24 Home oxygen therapy: N/A Follow up appointments: You should follow up with your PCP, Aparna Jordan APRN, in 1-2 weeks. Our office will schedule an appointment with your Communication Clerk, Neftali Ernandez MD , in 2 [...] 0600 and on the weekends please page [phone]. * Eric Barahona PA - 02/23/2024 9:27 [...] on the weekends please page [phone]. * Tiffanie Owens, CEO & FOUNDER - 02/22/2024 2:48 PM EDT Physical Therapy [...] d/c for 10 days. 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 * Kelley Hinson CEO & FOUNDER - 02/21/2024 10:15 AM EDT Physical Therapy [...] d/c for 10 days. 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 * Kelley Hinson PTA - 02/20/2024 3:32 [...] at that time Kelley Hinson PTA Pager: [phone] Physical Therapy Inpatient Rehab Department * Louisa [...] 0600 and on the weekends please page [phone]. * Maris Benavides, PT - 02/19/2024 11:22 [...] d/c for 10 days. 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 Precautions/Special Considerations: STERNAL [...] outlined inthis evaluation. MARIS BENAVIDES, PT Pager: [phone] Physical Therapy Inpatient Rehabilitation Department Time IN / OUT: 6771-5495 Total Time: 38 (eval) minutes; * Antonio [...] 0600 and on the weekends please page [phone]. * Minnie Begum PA - 02/18/2024 8:25 [...] on the weekends please page [phone]. * Kim Ha RCP - 02/17/2024 2:25 [...] plan since last visit. Hayder Graham MD [phone] Source Note - Hayder Graham MD - [...] given written informed consent. Hayder Graham MD [phone] * Hayder Graham MD - 02/17/2024 7:00 [...] given written informed consent. Hayder Graham MD [phone] documented in this encounter Miscellaneous Notes * [...] for follow-up Home Health & Hospice, [address] [place] [address] Cardiac Rehab, [address] [place] [address] Transportation: family or friend will provide Functional status prior to admission: Independent Home Environment: Others in the home: alone. Current Living Arrangements: home/apartment/condo. Accessibility Concerns:a few steps to enter 1 floor home. Current Functional Ability: Assistive Person and Equipment DME used at home: none DME Needed at Discharge: N/A Patient is insured through: Primary Insurance: [employer] Payor: [facility] / Plan: [facility] PPO / Product Type: *No Product type* [...] pain managed with scheduled Tylenol. Worked with [employer]. Ambulated in the roque multiple times during [...] anticipated Patient is insured through: Primary Insurance: [facility] Payor: [facility] / Plan: [facility] PPO / Product Type: *No Product type* / Secondary Insurance: N/A Last Physical Therapy Recommendation: home with home health (Str coming to stay for a week or two upon d/c) with to be determined (owns rolling walker, shower seat) Plan for discharge is: Home w/ Services Outpatient Agency/Support Group Needs: Homecare agency Home Health Services: Physical Therapy, Registered Nurse Agency Referrals: [facility] [address] [place] [phone] Transportation: family or friend will provide Barriers to discharge: Discharge planning Plan going forward: Service Care Management will continue to follow and assist with discharge planning and coordination of care as indicated. Anticipated Date of Discharge: 02/22/2024 Rhett Bell RN RN/CM - Cellphone: [phone] Pager: [phone] Covering Service RN/CM * Plan of Care [...] RN - 02/19/2024 10:44 AM EDT 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 (Only good for 180 days) Any patient receiving care in [place] must abide by [place] law. The hierarchy [...] (i) The agent with financial power of staff attorney or a conservator appointed in accordance [...] steady place to sleep or slept in [facility] (including now)?: No In the past 12 months has the [employer], gas, oil, or water [employer] threatened to shut off services in your [...] as: [address] [facility] [address] Physical address: [address] [facility], [address] Social & Family Supports: All names listed [...] Information: none noted Health/Prescription Coverage: Primary Insurance: [facility] Payor: [facility] / Plan: [facility] PPO / Product Type: *No Product type* / Secondary Insurance: N/A ; Prescription Coverage: Yes Preferred Pharmacy: [id number] [address] Scott Status: Patient is a : No Primary Care Provider confirmed: Aparna Jordan, MAURI [phone] Patient/Caregiver Goals of Treatment: dc to home Potential Needs for Transition of Care: home health care Agency Referrals: I have met with the patient to: discuss discharge planning needs. provide the [facility], Office of Care Management letter from the [place] pertaining to rehab referrals. provide a letter describing our affiliations within the [facility] and educate about their right to choose where referrals are sent. provide a list of Home Health Agencies / Durable Medical Equipment vendors which serve their preferred geographic area. provided patient with [facility] Star Quality Rating handout. They have requested referrals to: [facility] [address] [place] [address] Note routed to a Case Planner who will communicate referrals to facilities and [...] Reina Greene RN CM, BSN, CMGT-BC Ext [phone] * Plan of Care - Binta Trinidad [...] Operative Note Patient Name: Karlos Garcia : [id number] MR#: [id number] Case Date: 02/17/2024 Surgeon: Surgeon(s) and Role: * Hayder Graham MD - Primary * Neftali Menon PA - Physician Respiratory Therapist Assistant Preoperative diagnosis: CAD Postoperative diagnosis: CAD, [...] MD 02/17/2024 * Op Note - Hayder Grahma MD - 02/17/2024 8:20 AM EDT [facility] Operative Note Patient Name: Karlos Garcia : [id number] MR#: [id number] Case Date: 02/17/2024 Surgeon: Surgeons and Role: * Hayder Graham MD - Primary * Neftali Menon PA - Physician Respiratory Therapist Assistant Preoperative diagnosis: CAD Postoperative diagnosis: CAD, [...] Aortic Valve Open W Cardiopulmonary Bypass Homogrf/Stent (47251) Yes 02/17/2024 7:28 AM EDT CAD Cabg, Artery-Vein, Two (23297) Yes 02/17/2024 7:28 AM EDT CAD Cabg, Arterial, Single (20906) Yes 02/17/2024 7:28 AM EDT CAD Endoscopy W/Video-Asst Vein [place], Cabg (26882) Yes 02/17/2024 7:28 AM EDT CAD POCT [...] Lab Hayder Graham MD CHEMISTRY ORDERABLE S [facility] [place] [address] * (ABNORMAL) Basic Metabolic Panel (non-fasting) (02/23/2024 [...] Carpio MD CHEMISTRY ORDERABLES Performing Organization Address [facility] Co de Phone Number [facility] [place] [address] * Potassium (02/22/2024 4:30 AM EDT) Potassium [...] Performing Organization Address [facility] Co de Phone Number [facility] [place] [address] * (ABNORMAL) Basic Metabolic Panel (non-fasting) (02/21/2024 [...] 31 [facility] Comment:Add-on request. Samp le [...] MD CHEMISTRY ORDERABLES [facility] [place] [address] * Lactate, whole blood, send to lab ([facility]) (02/21/2024 9:45 AM EDT) Lactate WB 2.0 0.5 - 2.2 mmol/L [facility] Blood 02/21/2024 9:45 AM EDT 02/21/2024 9:52 AM EDT Narrative Resulting Agency Comment Spec In Lab Hayder Graham MD CHEMISTRY ORDERABLE S Performing Organization Address City/[facility]/ZIP Co de Phone Number [facility] [place] [address] * (ABNORMAL) Hepatic Function Panel (02/21/2024 9:45 AM EDT) Pathologist [facility] Protein, Total 5.7(L) 6.1 - 8.0 g/dL [...] CHEMISTRY ORDERABLE S Performing Organization Address City/[facility]/ZIP Co de Phone Number [facility] [place] [address] * Lipase (02/21/2024 9:45 AM EDT) Pathologist [facility] Lipase 56 0 - 60 unit/L [facility] Blood 02/21/2024 9:45 AM EDT 02/21/2024 9:52 AM EDT Narrative Resulting Agency Comment Spec In Lab Hayder Graham MD CHEMISTRY ORDERABLE S Performing Organization Address [facility] Co de Phone Number [facility] [place] [address] * Amylase (02/21/2024 9:45 AM EDT) Amylase 69 28 - 100 unit/L [facility] Blood 02/21/2024 9:45 AM EDT 02/21/2024 9:52 AM EDT Narrative Resulting Agency Comment Spec In Lab Hayder Graham MD CHEMISTRY ORDERABLE S Performing Organization Address [facility] de Phone Number [facility] [place] [address] * Potassium (02/21/2024 3:08 AM EDT) Pathologist [facility] Potassium 3.8 3.5 - 5.0 mmol/L [facility] [...] Performing Organization Address [facility] Co de Phone Number [facility] [place] [address] * XR Chest PA & Lateral (Generic) (02/20/2024 10:19 AM EDT) WORKSTATION ID [id number] RAD Anatomical Region Laterality Modality Chest N/A [...] 02/17/2024 FINDINGS: Support devices: Interval removal of [place]-Kaila catheter, endotracheal tube and mediastinal chest tubes The cardiac silhouette is stable status post median sternotomy, CABG and aortic valve replacement. There are small pleural effusions. No pneumothorax. Procedure Note Rogerio Cruz MD - 02/20/2024 EXAMINATION: XR CHEST PA AND LATERAL (GENERIC) CLINICAL HISTORY: s/p AVR/CABGx3 TECHNIQUE: PA and lateral views of the chest COMPARISON: 02/17/2024 FINDINGS: Support devices: Interval removal of [place]-Kaila catheter, endotracheal tubeand mediastinal chest tubes The [...] (02/20/2024 4:23 AM EDT) Plat estimate Decreased [facility] RBC Morphology Normal [facility] Blood 02/20/2024 4:23 AM EDT 02/20/2024 4:42 AM EDT Narrative Resulting Agency Comment Spec In Lab Minnie FRENCH HEMATOLOGY CECILIO ALEMAN [facility] [place] [address] * (ABNORMAL) Differential, Automated (02/20/2024 4:23 AM EDT) Pathologist [facility] Neutrophil % 81.7 % [facility] Neutrophil Absolute 10.37(H) 1.70 - 6.10 x10(3)/mc L [facility] Lymph % 7.4 % [facility] Lymphocytes Abs 0.9 0.9 - 3.2 x10(3)/mc L [facility] Monocyte % 9.7 % [facility] Monocyte Abs 1.2(H) 0.3 - 0.9 x10(3)/mc L [facility] Eos % 0.1 % [facility] Eosinophils Abs 0.0 0.0 - 0.4 x10(3)/mc L [facility] Basophil % 0.2 % [facility] [...] HEMATOLOGY CECILIO ALEMAN [facility] [place] [address] * (ABNORMAL) Hemogram (02/20/2024 4:23 AM EDT) White Blood Cell 12.7(H) 4.0 - 9.5 x10(3)/[facility] Red Blood Cell 4.26(L) 4.58 - 5.54 x10(6)/[facility] Hemoglobin 12.3(L) 13.7 - 16.5 g/dL [facility] Hematocrit 37.1(L) 40.5 - 48.5 % [facility] Mean Cell Volume 87.1 82.9 - 93.1 [facility] Mean Cell Hemoglobin 28.9 27.5 - 32.1 pg [facility] Mean Cell Hemoglobin Concentration 33.2 32.0 - 35.7 g/dL [facility] Platelet 88(L) 145 - 357 x10(3)/[facility] RDW Standard Deviation 43.5 36.0 - 45.0 [facility] RDW coefficient of variation 13.7 11.4 - 13.8 % [facility] Mean Platelet Volume 10.2 7.6 - 12.9 [facility] NRBC% auto 0.0 % [facility] NRBC Absolute 0.000 0.000 - 0.000 x10(3)/ L [facility] Blood 02/20/2024 4:23 AM EDT 02/20/2024 4:42 AM EDT Narrative Resulting Agency Comment Spec In Lab Minnie FRENCH HEMATOLOGY CECILIO ALEMAN [facility] [place] [address] * (ABNORMAL) Basic Metabolic Panel (non-fasting) (02/20/2024 [...] CHEMISTRY ORDERABLE S Performing Organization Address City/[facility]/ZIP Co de Phone Number [facility] [place] [address] * Potassium (02/19/2024 3:57 AM EDT) Potassium [...] Performing Organization Address [facility] Co de Phone Number [facility] [place] [address] * POCT Glucose (02/18/2024 8:24 AM EDT) Glucose, POC 157 65 - 199 mg/dL [facility] Comment: Supplemental ranges: <140 mg/dL before meals <180 mg/dL all other times of the day Blood 02/18/2024 8:24 AM EDT 02/18/2024 8:24 AM EDT Hayder Graham MD POINT OF CARE TEST ORDERABLES Performing Organization Address [facility]/ZIP Co de Phone Number [facility] [place] [address] * Scan, Peripheral Blood (02/18/2024 1:40 AM EDT) Plat estimate Decreased [facility] RBC Morphology Normal [facility] Blood 02/18/2024 1:40 AM EDT 02/18/2024 1:56 AM EDT Narrative Resulting Agency Comment Spec In Lab Neftali FRENCH HEMATOLOGY ORDER OLE [facility] [place] [address] * (ABNORMAL) Differential, Automated (02/18/2024 1:40 AM EDT) Neutrophil % 87.1 % [facility] Neutrophil Absolute 15.03(H) 1.70 - 6.10 x10(3)/mc L [facility] Lymph % 3.0 % [facility] Lymphocytes Abs 0.5(L) 0.9 - 3.2 x10(3)/mc L [facility] Monocyte % 9.1 % [facility] Monocyte Abs 1.6(H) 0.3 - 0.9 x10(3)/mc L [facility] Eos % 0.0 % [facility] Eosinophils Abs 0.0 0.0 - 0.4 x10(3)/mc L [facility] Basophil % 0.2 % [facility] [...] HEMATOLOGY ORDER OLE [facility] [place] [address] * (ABNORMAL) Hemogram (02/18/2024 1:40 AM EDT) [...] Standard Deviation 39.9 36.0 - 45.0 fL [facility] RDW coefficient of variation 13.2 11.4 - 13.8 % [facility] Mean Platelet Volume 9.9 7.6 - 12.9 fL [facility] NRBC% auto 0.0 % [facility] NRBC Absolute 0.000 0.000 - 0.000 x10(3)/mc L [facility] Blood 02/18/2024 1:40 AM EDT 02/18/2024 1:56 AM EDT Narrative Resulting Agency Comment Spec In Lab Neftali FRENCH HEMATOLOGY ORDER OLE [facility] [place] [address] * (ABNORMAL) Basic Metabolic Panel (non-fasting) (02/18/2024 [...] Lab Hayder Graham MD CHEMISTRY ORDERABLE S [facility] [place] [address] * (ABNORMAL) Troponin (02/18/2024 1:40 AM EDT) [...] troponin value can be found in the [facility] Test Catalog Troponin - [facility] Test Catalog Reference: Fourth [place] Definition of Myocardial Infarction. Journal of the [place] College [employer] 2018;72:0311-1564 Blood 02/18/2024 1:40 AM EDT 02/18/2024 1:56 AM EDT Narrative Resulting Agency Comment Spec In Lab Hayder Graham MD CHEMISTRY ORDERABLE S [facility] [place] [address] * POCT Glucose (02/17/2024 8:13 PM EDT) Glucose, POC 142 65 - 199 mg/dL [facility] Comment: Supplemental ranges: <140 mg/dL before meals <180 mg/dL all other times of the day Blood 02/17/2024 8:13 PM EDT 02/17/2024 8:13 PM EDT Hayder Graham MD POINT OF CARE TEST ORDERABLES Performing Organization Address [facility] Co de Phone Number [facility] [place] [address] * POCT Glucose (02/17/2024 5:42 PM EDT) Glucose, POC 160 65 - 199 mg/dL [facility] Comment: Supplemental ranges: <140 mg/dL before meals <180 mg/dL all other times of the day Blood 02/17/2024 5:42 PM EDT 02/17/2024 5:42 PM EDT Hayder Graham MD POINT OF CARE TEST ORDERABLES Performing Organization Address [facility] Co de Phone Number [facility] [place] [address] * Hemoglobin (02/17/2024 5:42 PM EDT) [facility] Hemoglobin 13.7 13.7 - 16.5 g/dL [facility] Blood 02/17/2024 5:42 PM EDT 02/17/2024 6:10 PM EDT Narrative Resulting Agency Comment Spec In Lab Hayder Graham MD HEMATOLOGY ORDERABL ES Performing Organization Address [facility] Co de Phone Number [facility] [place] [address] * Potassium (02/17/2024 5:42 PM EDT) [facility] Potassium 4.3 3.5 - 5.0 mmol/L [facility] [...] Lab Hayder Graham MD CHEMISTRY ORDERABLE S [facility] [place] [address] * (ABNORMAL) BLOOD GAS 2 ARTERIAL (02/17/2024 [...] [facility] FIO2 Art 40 % [facility] PF Ratio Art 195 [facility] Blood 02/17/2024 4:18 PM EDT 02/17/2024 4:18 PM EDT Hayder Graham MD POINT OF CARE TEST ORDERABLES [facility] [place] [address] * XR Chest One View (02/17/2024 1:44 PM EDT) [employer] WORKSTATION ID [id number] DH RAD Anatomical Region Laterality Modality Chest N/A Digital Radiogra phy Impressions 02/17/2024 2:12 PM EDT 1. ??No definite pleural fluid collection or pneumothorax. 2. ??Right IJ [place] catheter tip terminates in a descending branch [...] 5.2 cm above the carlos. Right IJ [place] catheter tip terminates in a descending branch [...] 5.2 cm above the carlos. Right IJ [place]-Ganzcatheter tip terminates in a descending branch of [...] fluid collection or pneumothorax. 2. Right IJ [place] catheter tip terminates in a descending branch [...] [facility] FIO2 Art 100 % [facility] PF Ratio Art 320 [facility] Blood 02/17/2024 1:31 PM EDT 02/17/2024 1:31 PM EDT Hayder Graham MD POINT OF CARE TEST ORDERABLES [facility] [place] [address] * (ABNORMAL) Coox2 (02/17/2024 1:21 PM EDT) [...] CARE TEST ORDERABLES Performing Organization Address City/[facility]/ZIP Co de Phone Number [facility] [place] [address] * (ABNORMAL) BLOOD GAS 2 ARTERIAL (02/17/2024 [...] Performing Organization Address [facility] Co de Phone Number [facility] [place] [address] * (ABNORMAL) Fibrinogen (02/17/2024 12:10 PM EDT) [...] Performing Organization Address [facility] Co de Phone Number [facility] [place] [address] * (ABNORMAL) Thrombin time (02/17/2024 12:10 PM [...] Performing Organization Address [facility] Co de Phone Number [facility] [place] [address] * APTT (02/17/2024 12:10 PM EDT) Partial [...] Performing Organization Address [facility] Co de Phone Number [facility] [place] [address] * (ABNORMAL) Prothrombin Time (02/17/2024 12:10 PM [...] HEMATOLOGY ORDERABLE S [facility] [place] [address] * (ABNORMAL) Hemogram (02/17/2024 12:10 PM EDT) [...] [facility] NRBC% auto 0.0 % [facility] NRBC Absolute 0.000 0.000 - 0.000 x10(3)/mc L [facility] Blood 02/17/2024 12:1 0 PM EDT 02/17/2024 12:19 PM EDT Narrative Resulting Agency Comment Spec In Lab Tara York MD HEMATOLOGY ORDERABLE S [facility] [place] [address] * (ABNORMAL) BLOOD GAS 2 ARTERIAL (02/17/2024 [...] [facility] Comment: Noted by keyboard instrument tuner. Please note: Patients with WBC [...] CARE TEST ORDERABLES [facility] [address] [place] [address] * (ABNORMAL) BLOOD GAS 2 ARTERIAL (02/17/2024 [...] [facility] Comment: Noted by keyboard instrument tuner. Please note: Patients with WBC [...] Performing Organization Address [facility] de Phone Number [facility] [place] [address] * (ABNORMAL) Hemoglobin and Hematocrit, blood (02/17/2024 11:04 AM EDT) Hemoglobin 9.6(L) 13.7 - 16.5 g/dL [facility] [...] Performing Organization Address [facility] de Phone Number [facility] [place] [address] * (ABNORMAL) Platelet count (02/17/2024 11:04 AM EDT) Platelet 106(L) 145 - 357 x10(3)/mc L [facility] Immature Plt % 1.6 0.0 - 7.4 % [facility] Comment: Limitation of the Immature Platelet Fraction (IPF)-May be less reliable when the platelet count is less than 35i708/uL due to statistical imprecision. The IPF value [...] in a decreased state of production. References: [employer] The Clinical Value of the Immature Platelet Fraction (IPF) in Cell Recovery Document Number [id number] 03/2011 [employer] The Role of the Immature Platelet Fraction (IPF) in the Differential Diagnosis of Thrombocytopenia, Document MKT-[id number] V002/15/14 Blood 02/17/2024 11:0 4 AM EDT 02/17/2024 11:12 AM EDT Narrative Resulting Agency Comment Spec In Lab Hayder Graham MD HEMATOLOGY ORDERABL ES Performing Organization Address City/[facility]/ZIP Co de Phone Number [facility] [place] [address] * (ABNORMAL) Fibrinogen (02/17/2024 11:04 AM EDT) [...] MD HEMATOLOGY ORDERABL ES Performing Organization Address City/[facility]/ZIP Co de Phone Number [facility] [place] [address] * (ABNORMAL) BLOOD GAS 2 ARTERIAL (02/17/2024 [...] CARE TEST ORDERABLES [facility] [place] [address] * (ABNORMAL) BLOOD GAS 2 ARTERIAL (02/17/2024 [...] CARE TEST ORDERABLES Performing Organization Address City/State/[facility] Co de Phone Number [facility] [place] [address] * Surgical Pathology Report (02/17/2024 10:01 AM EDT) Final Diagnosis [id number] ? Location: [facility]; [facility]; The signing pathologist has (i) examined the relevant preparation(s) for the specimen(s) and (ii) rendered or confirmed the diagnosis(es). . ?Surgical Pathology DIAGNOSIS Aortic valve leaflets, excision: Valve leaflets with myxoid degeneration, nodular fibrosis and dystrophic calcifications. Electronically signed by: ?Lindsay FERNANDEZ, Livier Gonzalez Verified: ??02/24/2024 13:49 ??Pathologist Performed at: ??-[facility] Dept. of Pathology, [place] [address] Miller Head: Job Brewer MD, FCAP, ??CLIA Certificate: [id number] SPECIMEN(S) SUBMITTED A - Aortic Valve Leaflets, [...] Sections Processing Blocks submitted for decalcification: A1. Hospice Volunteer sections in 1 cassette labeled A1. ??ajw 02/24/2024 1:49 PM EDT [facility] AORTIC STRUCTURE / Unknown 02/17/2024 10:01 AM EDT 02/17/2024 10:01 AM EDT Hayder Graham MD PATHOLOGY/[place] [address] * Specimen to Pathology (02/17/2024 10:01 AM EDT) AP Specimen 02/17/2024 10:0 1 AM EDT 02/17/2024 10:01 AM EDT Narrative [facility] - 02/17/2024 10:01 AM EDT Specimen requisition ordered. ??Separate Pathology report to follow Hayder Graham MD PATHOLOGY/CYTOLOGY ORDERABLES [facility] [place] [address] * (ABNORMAL) BLOOD GAS 2 ARTERIAL (02/17/2024 9:35 AM EDT) pH, Arterial 7.33(L) 7.35 - 7.45 [facility] PCO2, Arterial 35 35 - 45 mmHg [facility] PO2, Arterial 318(H) 85 - 104 mmHg [facility] Bicarbonate, Arterial 17.9(L) 20.0 - 26.0 mmol/L [facility] Base Excess, Arterial -8.0(L) [...] CARE TEST ORDERABLES [facility] [place] [address] * (ABNORMAL) BLOOD GAS 2 VENOUS (02/17/2024 9:34 AM EDT) pH, Venous 7.22(Criti marquez) 7.32 - 7.42 [facility] Comment:Noted by keyboard instrument tuner. PCO2, Venous 43 41 - 51 mmHg [facility] Comment:Noted by keyboard instrument tuner. PO2, Venous 57(H) 25 - 40 mmHg [facility] Comment:Noted by keyboard instrument tuner. Bicarbonate, Venous 17.1 mmol/L [facility] Comment:Noted by keyboard instrument tuner. Base Excess, Venous -10.6 mmol/L [facility] Comment:Noted by keyboard instrument tuner. Hgb Blood Gas 11.2(L) 13.7 - 16.5 g/dL [facility] Comment:Noted by keyboard instrument tuner. Oxyhemoglobin, Venous 86.5 % [facility] Comment:Noted by keyboard instrument tuner. Carboxyhemoglob in, Venous 0.3 % [facility] Comment: Noted by keyboard instrument tuner. Nonsmokers: 0.5-1.5% COHB Smokers: Variable, but usually less than 10% Toxic: 20-30% COHB Lethal: Greater than 60% COHB Methemoglobin, Venous 0.0 <=1.5 % [facility] Comment:Noted by keyboard instrument tuner. Na Whole Blood 156(H) 135 - 145 mmol/L [facility] Comment:Noted by keyboard instrument tuner. K Whole Blood 5.5(H) 3.5 - 5.0 mmol/L [facility] Comment: Noted by keyboard instrument tuner. Please note: Patients with WBC >100,000 may have falsely elevated Potassium levels. Contact the Clinical Chemistry Laboratory if there are any questions. ICa Whole Blood 1.03(L) 1.15 - 1.33 mmol/L [facility] Comment: Noted by keyboard instrument tuner. Note: ??Total bilirubin higher than 20 mg/dL may lead to falsely low ionized calcium. CL Whole Blood 100 98 - 107 mmol/L [facility] Comment:Noted by keyboard instrument tuner. Gluc Whole Bld 132 65 - 199 mg/dL [facility] Comment: Noted by keyboard instrument tuner. Diabetes: >=200 mg/dL plus symptoms Lactate WB 1.0 0.5 - 2.2 mmol/L [facility] Comment:Noted by keyboard instrument tuner. Blood Gas Source Venous [facility] Blood 02/17/2024 9:34 AM EDT 02/17/2024 9:34 AM EDT Hayder Graham MD POINT OF CARE TEST ORDERABLES [facility] [place] [address] * (ABNORMAL) BLOOD GAS 2 ARTERIAL (02/17/2024 [...] CARE TEST ORDERABLES Performing Organization Address City/[facility]/ZIP Co de Phone Number [facility] [place] [address] * POCT Glucose (02/17/2024 6:38 AM EDT) Glucose, POC 98 65 - 199 mg/dL [facility] Comment: Supplemental ranges: <140 mg/dL before meals <180 mg/dL all other times of the day Blood 02/17/2024 6:38 AM EDT 02/17/2024 6:38 AM EDT Hayder Graham MD POINT OF CARE TEST ORDERABLES Performing Organization Address [facility] Co de Phone Number [facility] [place] [address] * Transesophageal Echo/OR (02/17/2024 6:33 AM EDT) [...] [facility] post-operative evaluation of cardiac function [...] Provider: Polo Britton RN)0625 (Given - Provider: oPlo Britton RN)1215 (Given - Provider: Reilly Vincent [...] RN)2057 (Given - Provider: Polo Britton RN) 09 (Given - Provider: Mishel Merrill RN)2115 (Given - Provider: Otis Crook, COLBY) 0836 [...] Mishel Merrill, COLBY)2117 (Given - Provider: Otis Crook RN) 0836 [...] Merrill, COLBY)2107 (Patch Removed - Provider: Otis Crook RN) 0836 (Not Given - Provider: Jazlyn Maldonado RN - Reason: Patient/family refused) metoprolol tartrate (Lopressor) tablet 100 mg 100 mg, Oral, EVERY 12 HOURS SCHEDULED (2 times per day), First dose (after last modification) on Sat02/23/24 at 0945, Until Discontinued, Hold for HR<60 and or SBP<90, Routine 0911 (Given - Provider: Mishel Merrill, RN)2114 (Given - Provider: Otis Crook RN) 0835 (Given - Provider: Jazlyn Maldonado RN) metoproloL tartrate (Lopressor) tablet 25 mg (CANCELED) [...] Medication 0822 (New Bag - Provider: Reilly Vincent, COLBY)1000 (Stopped - Provider: Ingrid Menjivar, COLBY)1001 (New Bag - Provider: Ingrid Menjivar RN)1201 [...] Merrill, RN) 0839 (Given - Provider: Jazlyn Maldonado RN) Continuous Medication Order 02/22/2024 02/23/2024 02/24/2024 dextrose 5% and sodium chloride 0.45% infusion (CANCELED) 50 mL/hr, Intravenous, CONTINUOUS, Starting on Sat02/21/24 at 1015, Until Sat02/23/24 at 0847 0128 (New Bag - Provider: Polo Britton RN)1830 (New Bag - Provider: Reilly Vincent, RN) 0900 (Stopped - Provider: Mishel Merrill, COLBY) PRN Medication Order 02/22/2024 02/23/2024 02/24/2024 bisacodyL (Dulcolax) suppository 10 mg 10 mg, Rectal, DAILY PRN, Starting on Starla 02/20/24 at 0000, Until Sat02/24/24 at 1323, Constipation, Starting post-op day 3., Routine HYDROmorphone (Dilaudid) tablet 2-6 mg 2-6 mg, Oral, EVERY 4 HOURS PRN, Starting on Tu02/18/24 at 1440, Until Sat02/24/24 at 1323, Pain, [...] Routine documented in this encounter Care Teams Retarder Operator Relationship Specialty Start Date End Date Aparna Jordan APRN PCP - General Family Medicine 10/21/23 05/26/24 documented as of this encounter
--- OUTSIDE RECORDS SUMMARY | 2024-07-16 10:00 | XMS_ITS | Encounter Summary ---
Author Organization [facility] [place] [address] Care Team Providers Care Hard Hat Diver Name Role Phone Vanessa Christian APRN Primary [...] on filedocumented in this encounter Care Teams Hard Hat Diver Relationship Specialty Start Date End Date Vanessa Christian APRN PCP - General Family Medicine 10/21/23 05/26/24 documented as of this encounter
--- OUTSIDE RECORDS SUMMARY | 2024-07-16 10:00 | XMS_ITS | Encounter Summary ---
Author Organization [facility] Address [facility] [place] [address] Care Team Providers Care Early Childhood Director Name Role Phone Vanessa Christian MAURI Primary Care Provider [phone] Encounter Details Date Type Department Care Team (Late st Contact Info) Description 02/14/2024 Orders [place] [phone] Zak Farmer MD [facility] [place] [address] Coronary artery disease, unspecified vessel or lesion type, unspecified whether angina present, unspecified whether tejon or transplanted heart (Primary Dx) Social History [...] on file documented as of this encounter Results * EKG 12 Lead (03/12/2024 2:35 PM EDT) Ventricular rate 59 BPM MUSE SYSTEM Atrial Rate 59 BPM MUSE SYSTEM P-R Interval 190 ms MUSE SYSTEM QRS Duration 92 ms MUSE SYSTEM Q-T Interval 406 ms MUSE SYSTEM QTC Calculated (Bezet) 401 ms MUSE SYSTEM Calculated P [place] -12 degrees MUSE SYSTEM Calculated R [place] 24 degrees MUSE SYSTEM Calculated T [place] 74 degrees MUSE SYSTEM INTERPRETATION Sinus bradycardia T wave abnormality, consider anterior ischemia Abnormal ECG When compared with ECG of 17-FEB-2024 13:24, AR interval has decreased T wave inversion now evident in Anterior leads Confirmed by Paul Guzman ([id number]) on 03/15/2024 8:36:23 AM MUSE SYSTEM 03/12/2024 2:35 PM EDT 03/15/2024 8:36 AM EDT Zak Farmer MD ECG ORDERABLES MUSE SYSTEM * XR Chest PA & Lateral (Generic) (03/12/2024 1:42 PM EDT) Pathologist [facility] WORKSTATION ID [id number] [facility] Anatomical Region Laterality Modality Chest N/A [...] questions please contact the health director of patient care that requested your imaging first. ? 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 Zak Farmer MD IMG DX ORDERABLES documented in this encounter Visit Diagnoses Diagnosis Coronary artery disease, unspecified vessel or lesion type, unspecified whether angina present, unspecified whether tejon or transplanted heart- Primary Coronary artery disease, unspecified vessel or lesion type, unspecified whether angina present, unspecified whether tejon or transplanted heart documented in this encounter Care Teams Early Childhood Director Relationship Specialty Start Date End Date Vanessa Christian APRN PCP - General Family Medicine 10/21/23 05/26/24 documented as of this encounter
--- OUTSIDE RECORDS SUMMARY | 2024-07-16 10:00 | XMS_ITS | Encounter Summary ---
Author Organization [facility] [place] [address] Care Team Providers Care School Bus Mechanic Name Role Phone Vanessa Christian APRN Primary Care Provider [phone] Encounter Details Date Type Department Care Team (Late st Contact Info) Description 01/10/2024 Orders [place] [phone] Lawson Napoles PA [facility] [place] [place] [address] Screening for cardiovascular condition; Aortic valve stenosis, [...] unspecified documented in this encounter Care Teams School Bus Mechanic Relationship Specialty Start Date End Date Vanessa Christian APRN PCP - General Family Medicine 10/21/23 05/26/24 documented as of this encounter
--- OUTSIDE RECORDS SUMMARY | 2024-07-16 10:00 | XMS_ITS | Encounter Summary ---
Author Organization [facility] [place] [address] Care Team Providers Care Soccer Coach Name Role Phone Vanessa Christian Lane DOTSON Primary Care Provider [phone] Encounter Details Date Type Department Care Team (Late st Contact Info) Description 01/09/2024 2:30 PM EDT Clinical Support Same Day [place] [phone] Social History Tobacco Use Types Packs/Day Years Used Date Smoking Tobacco: Former Cigarettes Smokeless Tobacco: Never Comments:Quit 15 + years ago Alcohol Use Standard Drinks/Week Comments Yes 0 (1 standard drink = 0.6 oz pur e alcohol) rare [facility] Inpatient Questions Answer Date Recorded Prevent Contact [...] link for a video about [facility] cardiac surgery. Instructed [...] screen performed while in the [facility]. Sent to Radiology for chest x-ray. Special medication instructions: None Procedure date: not booked. Darian documented in this encounter Plan of Treatment Not on file documented as of this encounter Visit Diagnoses Not on filedocumented in this encounter Care Teams Soccer Coach Relationship Specialty Start Date End Date Vanessa Christian APRN PCP - General Family Medicine 10/21/23 05/26/24 documented as of this encounter
--- OUTSIDE RECORDS SUMMARY | 2024-07-16 10:00 | XMS_ITS | Encounter Summary ---
Author Organization [facility] Address [facility] [place] [address] Care Team Providers Care Geospatial Scientist Name Role Phone Vanessa Christian MAURI Primary Care Provider [phone] Reason for Visit * Consultation (Routine) - Closed Specialty Diagnoses / Procedures Referred By Contac t Referred To Contact Cardiac Surgery Diagnoses Nonrheumatic aortic valve stenosis significant - TAVR ( defers to Card Surg d/t age) Neftali Ernandez MD [facility] [place] [address] Zak Farmer MD [facility] [place] [address] Referral ID Status Reason Start Date Expiration Date V isits Requested Visits Authorized [id number] Closed Consult, Test & Treat 10/21/2023 10/20/2024 1 1 Encounter Details Date Type Department Care Team (Late st Contact Info) Description 01/09/2024 1:40 PM EDT Office [place] [address] Zak Farmer MD [facility] [place] [address] Nonrheumatic aortic valve stenosis Social [...] office. Best personal regards, Zak Farmer MD [phone] In aggregate 55 minutes were spent evaluating [...] have questions please contact the health childcare aide that requested your imaging first. ? Electronically signed by: Toby Dave MD, [facility] ([phone]), at 01/09/2024 3:11 PM Narrative 01/09/2024 3:11 [...] who have questions please contactthe health childcare aide that requested your imaging first. Zak [...] CHEMISTRY ORDERABLE S [facility] [place] [address] * Hepatic Function Panel (01/09/2024 2:58 PM [...] Comment Spec In Lab aZk Farmer MD CHEMISTRY ORDERABLE S Performing Organization Address [facility] Co de Phone Number [facility] [place] [address] * Prothrombin Time (01/09/2024 2:58 PM EDT) [...] Organization Address [facility] Co de Phone Number [facility] [place] [address] * Type and Screen Future Surgery, [facility] SAME DAY PROGRAM ONLY) (01/09/2024 2:58 PM EDT) ABORH Type O NEGATIVE [facility] Patient BB History Not Found [facility] Expires at [id number] on: 02-20-2024 [facility] Ab Screen Interp Negative [facility] Blood 01/09/2024 2:58 PM EDT 01/09/2024 2:58 PM EDT Narrative Resulting Agency Comment Spec In Lab Zak Farmer MD BLOOD BANK LAB [facility] Organization Address City/State/[facility] Co de Phone Number [facility] [place] [address] documented in this encounter Visit Diagnoses Diagnosis Nonrheumatic aortic valve stenosis Aortic valve disorders Nonrheumatic aortic valve stenosis Aortic valve disorders documented in this encounter Care Teams Geospatial Scientist Relationship Specialty Start Date End Date Vanessa Christian, SPA ASSOCIATE PCP - General Family Medicine 10/21/23 05/26/24 documented as of this encounter
--- OUTSIDE RECORDS SUMMARY | 2024-07-16 10:00 | XMS_ITS | Encounter Summary ---
Author Organization [facility] [place] [address] Care Team Providers Care Delivery Truck Driver Name Role Phone Vanessa Christian MAURI Primary Care Provider [phone] Reason for Visit * Auth/Cert (Routine) Specialty [...] MD [facility] [place] [address] [facility] Referral ID Status Reason Start Date Expiration Date Visits Re quested Visits Authorized [id number] 1 1 Encounter Details Date Type Department Care Team (Late st Contact Info) Description 02/03/2024 10:00 AM EDT - 02/03/2024 11:00 AM EDT [place] [address] Saira Lua MD [facility] [place] [address] CARDIAC CATHETERIZATION Social History Tobacco Use Types [...] lbs Follow-up Visits Follow up with your cooking appliance repair technician in 2-4 weeks Access Site 'Black and Blue' and tenderness is expected during the first week Call if you noted a mass (lump) greater than the size of a ellis Call Office with any Questions and if you have any of the following Clarence Lane M.D Interventional Rnp Police Patrol Lieutenant #: [phone] * Attachments The following attachments cannot be sent through Care Everywhere. * CAD (Coronary Artery Disease): General Info (Greek) * Coronary Angiogram: Post-op (Greek) documented in this encounter Medications at Time [...] Pre-Procedure H&P Update: Cardiac Catheterization Karlos Anthony [id number] 1960 Chief Complaint: Aortic stenosis HPI: Mr. [...] is inthe chart Clarence Lane MD Interventional Rnp 02/03/24 11:48 AM documented in this encounter Miscellaneous Notes * Brief Op Note - Clarence Lane MD - 02/03/2024 12:51 PM EDT Preliminary Cardiac Catheterization Procedure Note: Patient Name: Karlos Anthony : [id number] MR#: [id number] Case Date: 02/03/2024 Police Patrol Lieutenant: Surgeon(s) and Role: * Saira Lua MD [...] Modality Other Narrative 02/12/2024 3:47 PM EDT ?[facility] ? Cardiac Catheterization/Intervention Report ? Patient Name: Patenaude, Karlos ? Procedure Date: 02/03/2024 ? A #: [id number] ? Primary Physician: Mogadam, Emad ? Case #: [id number] ? File Name: [id number] ? Catheterization Order Number: [id number] ? [facility] ? Final Report [place], [place] ? Patient Name: ? Karlos Raj ? ID#: ?[id number] ? : ?1960 ? Procedure Date: ? February 03, 2024 ? Case #: ? [id number] ? Room: ? 5 ? Case Physician: ? Emad Chanell M.D. ? Start: ?12:29 ?Fellow: ? Clarence [...] was ?designated as ASA Class III. The [facility] clinical frailty scale is 3: ?Managing Well. [...] M.D. performed the coronary angiography. ? Emad Mogadam, M.D. ? Electronically Signed by: Saira Lua M.D. ? Report Finalized: 02/12/2024 ??15:43 ? Procedure Note Saira Lua MD - 02/12/2024 [facility] Cardiac Catheterization/Intervention Report Patient Name: Karlos Anthony Procedure Date: 02/03/2024 A #: [id number] Primary Physician: Saira Lua Case #: [id number] File Name: [id number] Catheterization Order Number: [id number] [facility] FinalReport [place], [place] Patient Name: Karlos Anthony ID#:[id number] :1960 Procedure Date: February 03, 2024 Case [...] as ASA Class III. The [facility] clinical frailty scale is 3: [...] (Bezet) 372 ms MUSE SYSTEM Calculated P [place] 59 degrees MUSE SYSTEM Calculated R [place] 34 degrees MUSE SYSTEM Calculated T [place] 63 degrees MUSE SYSTEM INTERPRETATION Sinus bradycardia [...] MD) documented in this encounter Care Teams Delivery Truck Driver Relationship Specialty Start Date End Date Vanessa Christian APRN PCP - General Family Medicine 10/21/23 05/26/24 documented as of this encounter
--- OUTSIDE RECORDS SUMMARY | 2024-07-16 10:00 | XMS_ITS | Data Portability ---
Author Organization [place] [facility] Address [address] [place] [address] Care Team Providers Care Marine Pipe Welder Name Role Phone APARNA JORDAN Primary Care Provider [phone] SOFIA MCALLISTER Dentist Assessment No assessment recorded. Plan of Treatment Reminders Order Date Submit Date Provider Last Modified By Organization Details Last Modified Time Details Appointments None recorded . Lab magnesiu m, serum or plasma 024 12/18/19 24 [email or web address] [facility] (Registration ), [address] [place] [address] [place], [address], 4 14:25:25 BMP, serum or plasma 024 12/18/19 24 [email or web address] [facility] (Registration ), [address] [place] [address] [place], [address], 4 14:25:24 Referral None recorded . Procedures None recorded . Surgeries None recorded . Imaging None recorded . Medication Orders None recorded . Patient TargetsNo targets recorded. 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 checking kidney function and magnesium labs today will mail home. follow up in 3 months for BPH, Aortic stenosis. 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 for Referral Mold Filler Referral for Roland ateral hearing loss Referring Physician: Aparna Jordan, Family Medicine, Encounter Date: 02/26/2024 Results Created Date Observation Date Name Description Value Unit Range Abnormal Flag Note LastModifiedBy Organization Detail LastModifiedTime 12/18/19 24 12/18/2023 LASIC METAB OLIC PANEL calcium 9.3 mg/dL 8.5-10 .1 normal Not Available [address] [facility] [place], [address] 12/18/2023 17:09:55 12/18/19 24 12/18/2023 LASIC METAB OLIC PANEL glucose 90 mg/dL 74-106 normal Not Available Baljit montemayor [address] [place], [address] 12/18/2023 17:09:55 12/18/19 24 12/18/2023 LASIC METAB OLIC PANEL BUN 14 mg/dL 7-18 normal Not Available Baljit montemayor [address] [facility] [place], [address] 12/18/2023 17:09:55 12/18/19 24 12/18/2023 LASIC METAB OLIC PANEL creatinine 1.0 mg/dL 0.70-1 .30 normal Not Available [address] [facility] [place], [address] 12/18/2023 17:09:55 12/18/19 24 12/18/2023 LASIC METAB [...] young er-ag ed adult s. Not Available [address] [place], [address] 12/18/2023 17:09:55 12/18/19 24 12/18/2023 LASIC METAB OLIC PANEL sodium 139 mmol/ L 136-14 5 normal Not Available [address] [place], [address] 12/18/2023 17:09:55 12/18/19 24 12/18/2023 LASIC METAB OLIC PANEL potassium 4.9 mmol/ L 3.5-5. 1 normal Not Available [address] [place], [address] 12/18/2023 17:09:55 12/18/19 24 12/18/2023 LASIC METAB OLIC PANEL chloride 104 mmol/ L 98-107 normal Not Available [address] [place], [address] 12/18/2023 17:09:55 12/18/19 24 12/18/2023 LASIC METAB OLIC PANEL CO2 30.9 mmol/ L 21.0-3 2.0 normal Not Available [address] [place], [address] 12/18/2023 17:09:55 12/18/19 24 12/18/2023 LASIC METAB OLIC PANEL anion gap 4.1 mmol/ L 3-11 normal Not Available [address] [place], [address] 12/18/2023 17:09:55 12/18/19 24 12/18/2023 MAGNE SIUM magnesium 1.8 mg/dL 1.8-2. 4 normal Not Available [address] [place], [address] 12/18/2023 17:09:56 09/11/20 23 12/05/2022 trans -thor acic echoc ardio gram (TTE) (PROC ) No observ ation record ed. [email or web address] [facility] Xray [address] [place], [address], 09/13/2023 09:29:52 09/11/20 23 06/01/2022 XR, hip, unila teral No observ ation record ed. [email or web address] Not Available 2022 09:29:19 09/11/20 23 12/06/2019 US, echoc ardio gram No observ ation record ed. [email or web address] [facility]- Cardiology [address] [place], [address], 09/13/2023 09:28:49 Result Notes None recorded. Problems Name Problem SNOMED Code Status Onset Date Resolution Date Notes Provider Name and Address Organization Details Recorded Time Gastroes ophageal reflux disease without esophagi tis 578736623 Active 2022 Problem Code: K21.9; Problem Code Type: ICD-10; Not Available [facility] 4 05:35:57 Glaucoma 79398690 Active 2022 Problem Code: H40.9; Problem Code Type: ICD-10; Not Available [facility] 4 05:35:57 Hyperlip idemia 89704152 Active 2022 Problem Code: E78.5; Problem Code Type: ICD-10; Not Available [facility] 4 05:35:57 [facility] hyperten niels 48987453 Active 2022 Problem Code: I10; Problem Code Type: ICD-10; Not Available [facility] 4 05:35:57 Pain of left hip joint 96694934224 9100 Active 2022 Problem Code: M25.552; Problem Code Type: ICD-10; Not Available [facility] 4 05:35:57 Idiopath ic osteoart hritis 098577487 Active 2022 Problem Code: M16.12; Problem Code Type: ICD-10; Not Available [facility] 4 05:35:57 Inguinal hernia 723255613 Active 2022 Problem Code: K40.90; Problem Code Type: ICD-10; Not Available [facility] 4 05:35:57 Heart murmur 68327353 Active 2022 Problem Code: R01.1; Problem Code Type: ICD-10; Not Available Replaced by [facility] 4 05:35:57 Dyspnea 705920822 Active 2022 Problem Code: R06.09; Problem Code Type: ICD-10; Not Available Replaced by [facility] 4 05:35:57 Chest pain 16417432 Active 2022 Problem Code: R07.89; Problem Code Type: ICD-10; Not Available Replaced by [facility] 4 05:35:57 Melanocy tic nevus 546001258 Active 2022 Problem Code: D22.9; Problem Code Type: ICD-10; Not Available Replaced by [facility] 4 05:35:57 Aortic stenosis , non-rheu matic 822266318 Active 2022 Problem Code: I35.0; Problem Code Type: ICD-10; Not Available Replaced by [facility] 4 05:35:58 Aortic stenosis , non-rheu matic 612122717 Completed 202208/14/2023 Problem Code: I35.0; Problem Code Type: ICD-10; Not Available Replaced by [facility] 4 05:35:58 Indigest ion 493102730 Active 2023 GLORIA CAMP LPN null, [facility] 4 08:48:57 Coronary artery bypass grafts x 3 Active 2023 Kelly Duran RN null, [facility] 4 10:30:01 At increase d risk of atrial fibrilla tion 841384516 Active [address], [place], [address] , [facility] 4 13:52:01 Anemia 944660725 Active [address], [facility] [address] , [facility] 4 13:54:39 Problem Notes None recorded. Procedures Surgical History Date Name Laterality Status Provider Name and Address Organization Details Recorded Time coronary artery bypass graft completed Hudson Reeder MA [place] - [facility] 03/04/2024 14:54:09 Imaging Results Imaging Date Name Status LastModified by Organization Details LastModified Time 12/05/2022 trans-thoracic echocardiogram (TTE) (PROC) completed [address] Xray [address] , [place], [address], 09/13/2023 09:29:52 06/01/2022 XR, hip, unilateral [email or web address] Information not available 09/13/2023 09:29:19 12/06/2019 US, echocardiogram completed [address]- Cardiology [address] , [place], [address], 09/13/2023 09:28:49 Procedure Notes None recorded. Medical [...] es. Take 1 hr prior. Started by [facility]. Not Available Not Available [...] BY MOUTH DAILY 02/24 completed stopped by [facility] Not Available Not Available [...] hours by oral route as needed. active [facility] Not Available Not Available No t Available Aspirin Childrens 81 mg chewable tablet Take 1 tablet by mouth once a day active Not Available Not Available No t Available lisinopri l 5 mg tablet TAKE 1 TABLET BY MOUTH EVERY DAY 02/24 completed stopped by [facility] Not Available Not Available [...] day by oral route. active started by [facility] Not Available Not Available Not Available dorzolami de 2 % (PF) eye drops 1 drop both eyes bid 12/17 completed Not Available Not Available Not Available Vitals Date Recorded Body weight Body mass index (BMI) Body height Heart rate Systolic blood pressure Diastolic blood pressure Provider Name and Address Organization Details Last Updated DateTime 3 86504.7 8 g 23.7 kg/m2 167.64 cm 64 /min 110 mm[Hg] 60 mm[Hg] GLORIA CAMP LPN [facility] 3 08:48:49 Date Recorded Body height Body mass index (BMI) Body weight Heart rate Systolic blood pressure Diastolic blood pressure Provider Name and Address Organization Details Last Updated DateTime 4 167.64 cm 24.6 kg/m2 73413.4 4 g 60 /min 112 mm[Hg] 80 mm[Hg] GLORIA CAMP LPN [facility] 4 08:38:13 Date Recorded Body height Body mass index (BMI) Body weight Heart rate Oxygen saturation Oxygen saturation in Arterial blood by Pulse oximetry Systolic blood pressure Diastolic blood pressure Provider Name and Address Organization Details Last Updated DateTime 4 167.64 cm 22.6 kg/m2 69256.6 5 g 63 /min 99 % 99 % 102 mm[Hg] 54 mm[Hg] Hudson Reeder MA [facility] 4 10:27:28 Social History Question Answer Notes LastModified by Organizat ion Details LastModified Time Tobacco Smoking Status Former Smoker Hudson Reeder MA [facility], [facility] 03/06/2024 10:24:50 Do You Have An Advance Directive? Yes Registered 08/15/23 Updated 01/12/24 Information not available 01/15/2024 When Did You Quit Smoking? 11-15years sincelastc igarette [email or web address] Information not available 03/06/2024 Do You Have A Medical Power Of Health Promotion Educator? Yes Received 08/30/23, Scanned. Copies Sent To [facility] And Patient 09/02/23. Information not available 09/02/2023 What Was The Date Of Your Most Recent Tobacco Screening? 03/06/2024 [email or web address] Information not available 03/06/2024 What Is Your Current Pack Years? 30ormorepa ckyears [email or web address] Information not available 03/06/2024 How Much Tobacco Do You Smoke? 1 PPD [email or web address] Information not available 03/06/2024 How Many Years Have You Smoked Tobacco? 40 [email or web address] Information not available 03/06/2024 Do You Or Have You Ever Used Any Other Forms Of Tobacco Or Nicotine? No [email or web address] Information not available 03/06/2024 Sex: Male Functional [...] Recorded Time Tdap 08/26/2013 completed Not Available [facility] 05:30:17 Td(adult) unspecified formulation 11/21/2022 completed Not Available [facility] 10/18/2023 05:30:17 COVID-19, mRNA, LNP-S, PF, 100 mcg/0.5mL dose or 50 mcg/0.25mL dose 01/24/2021 completed Not Available [facility] 10/18/19 05:30:18 COVID-19, mRNA, LNP-S, PF, 100 mcg/0.5mL dose or 50 mcg/0.25mL dose 02/21/2021 completed Not Available [facility] 10/18/19 05:30:18 COVID-19, mRNA, LNP-S, PF, 100 mcg/0.5mL dose or 50 mcg/0.25mL dose 09/11/2021 completed Not Available [facility] 10/18/19 05:30:18 influenza, unspecified formulation 07/26/2021 completed Not Available [facility] 10/18/2023 05:30:18 influenza, unspecified formulation 07/26/2022 completed Not Available [facility] 10/18/2023 05:30:18 influenza, unspecified formulation 07/28/2020 completed Not Available [facility] 10/18/2023 05:30:18 influenza, unspecified formulation 08/05/2019 completed Not Available [facility] 10/18/2023 05:30:18 influenza, unspecified formulation 08/12/2018 completed Not Available [facility] 10/18/2023 05:30:18 Past Encounters Encounter ID Performer Location Encounter Start Date Encounter Closed Date Diagnosis/Indication Diagnosis SNOMED-CT Code Diagnosis ICD10 Code [id number] [address] [address] 09/19/2023 08:39:51 09/19/2023 09:17:42 Aortic valve stenosis 64163081 I35.0 Essential hypertension 45476050 I10 [id number] [address] [address] 12/18/2023 08:23:47 12/18/2023 09:29:09 Aortic stenosis, non-rheumatic 069303675 I35.0 Essential hypertension 09959301 I10 Nonulcer dyspepsia 41044 07 K30 Cramp in lower leg 42664 8009 R25.2 [id number] TATYANA LEDEZMA MD [address] [address] 03/06/2024 10:15:07 03/06/2024 11:14:28 Postoperative visit 968859387 Z48.89 Aortic rosa m nosis, non-rheumatic 273247579 I35.0 Stented co ronary artery 343482641 Z95.5 At [facility] risk of atrial fibrillation 535542881 Z91.89 Anemia 578194203 D64.9 Health Concerns Section Related Observation LastModified by Organization Detai ls LastModified Time None Recorded Concern Status LastModified by Organization Details LastModified Time None Recorded Advance Directives Directive Y: Registered 08/15/23Updated 01/12/24 Payers Encounter Date Sequence Insurance Name Policy Number Policy Alicia Covered Member ID Alicia Member ID Guarantor Name 12/18/2023 1 [employer] [id number] Karlos C Patenaude [id number] Karlos C Patenaude 03/06/2024 1 U[employer] [id number] Karlos C Patenaude [id number] Karlos C Patenaude Notes Date Note Type Note Provider Name and Address Organization Details Recorded Time 09/19/2023 text/html HPI Notes: 63-year-old man here for follow-up hypertension, severe aortic stenosis., He works full-time at [employer]. He lives at home with his dog. He has not heard from [facility] cardiology? referred mid-August. He did [...] trivial to mild aortic insufficiency. Aparna lizarraga [place] - [facility]. 09/19/2023 13:31:38 12/18/2023 text/html HPI Notes: 63-year-old man here for follow-up hypertension, severe aortic stenosis., He works full-time at [employer]. He lives at home with his [...] repair a number of years ago at [employer], it is starting to cause some discomfort. Reports leg cramps at nighttime intermittently, improves when he has a Gatorade during the daytime and Ovaltine in his coffee. Aparna lizarraga, [place] - [facility]. 12/18/2023 11:43:00 03/06/2024 text/html HPI Notes: Ana Paula marlow is here today for a postop evaluation TATYANA LEDEZMA MD [address], [place], [address], [facility] - [facility]. 03/08/2024 13:57:34
--- OUTSIDE RECORDS SUMMARY | 2024-07-16 10:00 | XMS_ITS | Encounter Summary ---
Author Organization [facility] [place] [address] Care Team Providers Care Assistant Infant Toddler Teacher Name Role Phone Vanessa Christian APRN Primary Care Provider [phone] Encounter Details Date Type Department Care Team (Late st Contact Info) Description 12/26/2023 Notes Only Cardiology at [address] [place] [address] Neftali Ernandez MD [facility] [place] [address] Social History Tobacco Use Types Packs/Day Years [...] filedocumented in this encounter Care Teams Assistant Infant Toddler Teacher Relationship Specialty Start Date End Date Vanessa Christian APRN PCP - General Family Medicine 10/21/23 05/26/24 documented as of this encounter
--- OUTSIDE RECORDS SUMMARY | 2024-07-16 10:00 | XMS_ITS | Encounter Summary ---
Author Organization [facility] Address [facility] [place] [address] Care Team Providers Care Scaffold Worker Name Role Phone Vanessa Christian PRESIDENT + PUBLISHER Primary Care Provider [phone] Reason for Referral * Diagnostic Test (Routine) - Closed Specialty Diagnoses / Procedures Referred By Contac t Referred To Contact Radiology Diagnoses Nonrheumatic aortic valve stenosis Procedures CT Chest wo Contrast (Generic) Louisa Reid PA [facility] [place] [address] [facility] [place] [address] Referral ID Status Reason Start Date Expiration Date V isits Requested Visits Authorized [id number] Closed Specialty Service Requested 01/10/2024 07/11/2025 1 1 Encounter Details Date Type Department Care Team (Late st Contact Info) Description 01/09/2024 [place] [address] Zak Farmer MD [facility] [place] [address] Nonrheumatic aortic valve stenosis Social History Tobacco [...] wo Contrast (Generic) (02/03/2024 7:44 AM EDT) [facility] WORKSTATION ID [id number] RAD Anatomical Region Laterality Modality Chest Computed [...] ? Electronically signed by: Rogerio Wright MD, [facility] ([phone]), at 02/03/2024 10:00 AM Narrative 02/03/2024 10:00 [...] nodule along the minor fissure (series [id number]) and a 8 mm right lower lobe [...] first. Electronically signed by: Rogerio Wright MD, [facility]([phone]), at 02/03/2024 10:00 AM Zak Farmer MD IMG CT ORDERABLES documented in this encounter Visit Diagnoses Diagnosis Nonrheumatic aortic valve stenosis Aortic valve disorders Nonrheumatic aortic valve stenosis Aortic valve disorders documented in this encounter Care Teams Scaffold Worker Relationship Specialty Start Date End Date Vanessa Christian APRN PCP - General Family Medicine 10/21/23 05/26/24 documented as of this encounter
--- OUTSIDE RECORDS SUMMARY | 2024-07-16 10:00 | XMS_ITS | Encounter Summary ---
Author Organization [facility] [place] [address] Care Team Providers Care Superintendent Local Name Role Phone Vanessa Christian MAURI Primary Care Provider [phone] Reason for Visit * Auth/Cert (Routine) Specialty [...] (WRVU 5.9) Rima Dickinson MD [facility] [place] [address] RUST Referral ID Status Reason Start Date Expiration Date Visits Re quested Visits Authorized [id number] 1 1 Encounter Details Date Type Department Care Team (Latest Contact Info) Description 02/03/2024 8:06 AM EDT - 02/03/2024 2:54 PM EDT Hospital Encounter [place] [address] Rima Dickinson MD [facility] [place] [address] Screening for cardiovascular condition; Aortic valve stenosis, [...] lbs Follow-up Visits Follow up with your manager of internal in 2-4 weeks Access Site 'Black and Blue' and tenderness is expected during the first week Call if you noted a mass (lump) greater than the size of a ellis Call Office with any Questions and if you have any of the following Clarence Lane M.D Interventional Podiatric Aide Rn Orthopaedics #: [phone] * Attachments The following attachments cannot be sent through Care Everywhere. * CAD (Coronary Artery Disease): General Info (Latvian) * Coronary Angiogram: Post-op (Latvian) documented in this encounter Medications at Time [...] MD - 02/03/2024 11:48 AM EDT [facility] Interventional Cardiology Adult Pre-Procedure H&P Update: Cardiac Catheterization Karlos Anthony [id number] Chief Complaint: Aortic stenosis HPI: Mr. [...] is inthe chart Clarence Lane MD Interventional Podiatric Aide 02/03/24 11:48 AM documented in this encounter Miscellaneous Notes * Brief Op Note - Clarence Lane MD - 02/03/2024 12:51 PM EDT Preliminary Cardiac Catheterization Procedure Note: Patient Name: Karlos Anthony : [id number] MR#: [id number] Case Date: 02/03/2024 Rn Orthopaedics: Surgeon(s) and Role: * Saira Lua MD [...] Modality Other Narrative 02/12/2024 3:47 PM EDT ?[facility] ? Cardiac Catheterization/Intervention Report ? Patient Name: Patenaude, Karlos ? Procedure Date: 02/03/2024 ? A #: [id number] ? Primary Physician: Mogadam, Emad ? Case #: [id number] ? File Name: [id number] ? Catheterization Order Number: [id number] ? [facility] ? Final Report [place], [place] ? Patient Name: ? Karlos Anthony ? ID#: ?[id number] ? : ?1960 ? Procedure Date: ? February 03, 2024 ? Case #: ? [id number] ? Room: ? 5 ? Case Physician: ? Cristald Florian Lua. ? Start: ?12:29 ?Fellow: ? Clarence N Florian Lane. ? Admission: ??02/03/2024 ? Referring Physician: ??Zak [...] Procedure Note Saira Lua MD - 02/12/2024 [facility] Cardiac Catheterization/Intervention Report Patient Name: Karlos Anthony Procedure Date: 02/03/2024 A #: [id number] Primary Physician: Saira Lua Case #: [id number] File Name: [id number] Catheterization Order Number: [id number] [facility] FinalReport [place], [place] Patient Name: Karlos Anthony ID#:[id number] :1960 Procedure Date: February 03, 2024 Case [...] was designated as ASA Class III. The [facility] clinical frailty scale is 3: Managing Well. [...] (Bezet) 372 ms MUSE SYSTEM Calculated P [place] 59 degrees MUSE SYSTEM Calculated R [place] 34 degrees MUSE SYSTEM Calculated T [place] 63 degrees MUSE SYSTEM INTERPRETATION Sinus bradycardia [...] MD) documented in this encounter Care Teams Superintendent Local Relationship Specialty Start Date End Date Vanessa Christian APRN PCP - General Family Medicine 10/21/23 05/26/24 documented as of this encounter
--- OUTSIDE RECORDS SUMMARY | 2024-07-16 10:00 | XMS_ITS | Encounter Summary ---
Author Organization [facility] Address [facility] Ivana linareseileen [place] [id number] Care Team Providers Care Web Application Tester Name Role Phone Vanessa Christian MAURI Primary Care Provider [phone] Reason for Referral * Consultation (Routine) - Closed Specialty Diagnoses / Procedures Referred By Contac t Referred To Contact Cardiac Surgery Diagnoses Nonrheumatic aortic valve stenosis significant - TAVR ( defers to Card Surg d/t age) Errol Loya MD [facility] [place] [address] Zak Farmer MD [facility] [place] [address] Referral ID Status Reason Start Date Expiration Date V isits Requested Visits Authorized [id number] Closed Consult, Test & Treat 10/21/2023 10/20/2024 1 1 Reason for Visit * Reason Comments Chest Pain Shortness of Breath Aortic Stenosis Encounter Details Date Type Department Care Team (Late st Contact Info) Description 10/21/2023 1:20 PM EST Office Visit Cardiology at [address] [id number] Errol Loya MD [facility] [place] [address] Nonrheumatic aortic valve stenosis Social History Tobacco [...] Diagnosis Aortic stenosis 12/2022 TTE ([facility]): VITA 0.8-0.9 cm2 (MG 28 mmHg, DOI 3.6 m/s, SVI 35 cc/m2). Trace regurgitation. Normal bi-v s/f, no other valve findings Gastroesophageal reflux Nevus of face Right religious Hypertension HLD (hyperlipidemia) MEDICATIONS: Current Outpatient Medications [...] the meantime will refer to T at [facility] for [...] the meantime will refer to T at [facility] for further evaluation. Logistics and preliminary review of TONY were reviewed with patient. - Refer to T * Addendum Note - Errol Loya MD - 10/21/2023 1:20 PM ESTAddended by: ERROL LOYA on: 10/21/2023 03:49 PM Modules accepted: Orders documented in this encounter Plan of Treatment Scheduled Referrals Name Type Priority Associated Diagnoses Order Schedule Amb Referral to Structural Heart Outpatient Referral Routine Nonrheumatic aortic valve stenosis Ordered: 10/21/2023 documented as of this encounter Visit Diagnoses Diagnosis Nonrheumatic aortic valve stenosis Aortic valve disorders documented in this encounter Care Teams Web Application Tester Relationship Specialty Start Date End Date Vanessa Christian APRN PCP - General Family Medicine 10/21/23 05/26/24 documented as of this encounter
--- OUTSIDE RECORDS SUMMARY | 2024-07-16 10:00 | XMS_ITS | Encounter Summary ---
Author Organization [facility] [place] [address] Care Team Providers Care Race Steward Name Role Phone Vanessa Christian APRN Primary Care Provider [phone] Encounter Details Date Type Department Care Team (Late st Contact Info) Description 10/21/2023 Abstract Cardiology at [address] [place] [phone] Adam Mayes RN Social History Tobacco Use [...] on filedocumented in this encounter Care Teams Race Steward Relationship Specialty Start Date End Date Vanessa Christian APRN PCP - General Family Medicine 10/21/23 05/26/24 documented as of this encounter
--- OUTSIDE RECORDS SUMMARY | 2024-07-16 10:00 | XMS_ITS | Encounter Summary ---
Author Organization [facility] [place] [address] Care Team Providers Care Forestry Fire Aid Name Role Phone Vanessa Christian APRN Primary Care Provider [phone] Encounter Details Date Type Department Care Team [...] on filedocumented in this encounter Care Teams Forestry Fire Aid Relationship Specialty Start Date End Date Vanessa Christian APRN PCP - General Family Medicine 10/21/23 05/26/24 documented as of this encounter
--- OUTSIDE RECORDS SUMMARY | 2024-07-16 10:00 | XMS_ITS | Encounter Summary ---
[place] [address] Care Team Providers Care Lithostripper Name Role Phone Vanessa Christian Lane DOTSON Primary Care Provider [phone] Reason for Referral * Diagnostic Test (Routine) - Closed Specialty Diagnoses / Procedures Referred By Contac t Referred To Contact Radiology Diagnoses Nonrheumatic aortic valve stenosis Procedures CT Chest wo Contrast (Generic) Louisa Cho PA [facility] [place] [address] [facility] [place] [address] Referral ID Status Reason Start Date Expiration Date V isits Requested Visits Authorized [id number] Closed Specialty Service Requested 01/10/2024 07/11/2025 1 1 Reason for Visit * Diagnostic Test (Routine) - Closed Specialty Diagnoses / Procedures Referred By Contac t Referred To Contact Radiology Diagnoses Nonrheumatic aortic valve stenosis Procedures CT Chest wo Contrast (Generic) Louisa Cho PA [facility] [place] [address] [facility] [place] [address] Referral ID Status Reason Start Date Expiration Date V isits Requested Visits Authorized [id number] Closed Specialty Service Requested 01/10/2024 07/11/2025 1 1 Encounter Details Date Type Department Care Team (Latest Contact Info) Description 02/03/2024 7:36 AM EDT - 02/03/2024 8:05 AM EDT Hospital Encounter CT Scan at [facility] [place] [address] Zak Farmer MD [facility] [place] [address] Nonrheumatic aortic valve stenosis Discharge Disposition: Home Social History Tobacco Use Types Packs/Day Years Used Date Smoking Tobacco: Former Cigarettes Smokeless Tobacco: Never Comments:Quit 15 + years ago Alcohol Use Standard Drinks/Week Comments Yes 0 (1 standard drink = 0.6 oz pur e alcohol) rare [facility] Inpatient Questions Answer Date Recorded Does Anyone [...] wo Contrast (Generic) (02/03/2024 7:44 AM EDT) [employer] Signature WORKSTATION ID [id number] RAD Anatomical Region Laterality Modality Chest Computed [...] who have questions please contact the health pediatric care coordinator that requested your imaging first. ? Electronically signed by: Rogerio Wright MD, [facility] ([phone]), at 02/03/2024 10:00 AM Narrative 02/03/2024 10:00 [...] nodule along the minor fissure (series 302 [id number]) and a 8 mm right lower lobe [...] patients who have questions please contactthe health pediatric care coordinator that requested your imaging first. Electronically signed by: Rogerio Wright MD, [facility]([phone]), at 02/03/2024 10:00 AM Zak Farmer MD IMG CT ORDERABLES documented in this encounter Visit Diagnoses Diagnosis Nonrheumatic aortic valve stenosis Aortic valve disorders documented in this encounter Care Teams Lithostripper Relationship Specialty Start Date End Date Vanessa Christian APRN PCP - General Family Medicine 10/21/23 05/26/24 documented as of this encounter
--- OUTSIDE RECORDS SUMMARY | 2024-07-16 10:00 | XMS_ITS | Encounter Summary ---
Author Organization [facility] [place] [address] Care Team Providers Care Cash Management Coordinator Name Role Phone Vanessa Christian APRN Primary Care Provider [phone] Encounter Details Date Type Department Care Team (Late st Contact Info) Description 10/21/2023 Abstract Cardiology at [address] [place] [phone] Adam Mayes RN Social History Tobacco Use [...] on filedocumented in this encounter Care Teams Cash Management Coordinator Relationship Specialty Start Date End Date Vanessa Christian APRN PCP - General Family Medicine 10/21/23 05/26/24 documented as of this encounter
--- OUTSIDE RECORDS SUMMARY | 2024-07-16 10:00 | XMS_ITS | Encounter Summary ---
Author Organization [facility] [place] [address] Care Team Providers Care Personal Development Educator Name Role Phone Vanessa Christian Lane DOTSON Primary Care Provider [phone] Encounter Details Date Type Department Care Team (Latest Contact Info) Description 01/09/2024 3:00 PM EDT Laboratory Appointment [place] [phone] Nonrheumatic aortic valve stenosis Social History Tobacco Use Types Packs/Day Years Used Date Smoking Tobacco: Former Cigarettes Smokeless Tobacco: Never Comments:Quit 15 + years ago Alcohol Use Standard Drinks/Week Comments Yes 0 (1 standard drink = 0.6 oz pur e alcohol) rare [facility] Inpatient Questions Answer Date Recorded Prevent [...] stenosis TYPE AND SCREEN, SDP (FUTURE SURGERY, [facility] SAME DAY PROGRAM ONLY) Routine 01/09/2024 2:58 [...] ABORH Recheck Status (01/09/2024 2:58 PM EDT) Pathologist [facility] ABORH Recheck Order Order Placed [facility] ABORH Type Recheck Completed [facility] Blood 01/09/2024 2:58 PM EDT 01/09/2024 3:08 PM EDT Narrative Resulting Agency Comment Spec In Lab Zak Farmer MD BLOOD BANK LAB ORDE ASH [facility] [place] [address] * Differential, Automated (01/09/2024 2:58 PM EDT) Neutrophil % 70.5 % [facility] Neutrophil Absolute 4.34 1.70 - 6.10 x10(3)/[facility] Lymph % 18.9 % [facility] Lymphocytes Abs 1.2 0.9 - 3.2 x10(3)/[facility]ORATORY Monocyte % 8.0 % [facility] Monocyte Abs 0.5 0.3 - 0.9 x10(3)/[facility]OR[facility] Eos % 1.6 % [facility] Eosinophils Abs 0.1 0.0 - 0.4 x10(3)/[facility]OR[facility] Basophil % 0.5 % [facility] Baso Absolute 0.0 0.0 - 0.1 x10(3)/[facility]ORAT[facility] Immature Gran % 0.50 % [facility] Comment: Immature granulocytes(IG's)percentage and absolute count will include metamyelocytes, myelocytes, and promyelocytes. Blood smears from CBCs yielding IG's will be scanned manually for concordance. If this scan disagrees with the automated IG or if promyelocytes are noted, a manual differential will be performed. Immature Gran Absolute 0.03 0.00 - 0.04 x10(3)/[facility]ORAT[facility] Blood 01/09/2024 2:58 PM EDT 01/09/2024 3:03 PM EDT Narrative Resulting Agency Comment Spec In Lab Zak Farmer MD HEMATOLOGY ORDERABL ES [facility] [place] [address] * Hemogram (01/09/2024 2:58 PM EDT) White Blood Cell 6.2 4.0 - 9.5 x10(3)/[facility]OR[facility] Red Blood Cell 5.53 4.58 - 5.54 x10(6)/[facility] Hemoglobin 16.1 13.7 - [...] HOSPITAL LABORATORY Platelet 187 145 - 357 x10(3)/[facility]ORAT[facility] RDW Standard Deviation 39.2 36.0 - 45.0 [facility] RDW coefficient of variation 12.6 11.4 - 13.8 % [facility] Mean Platelet Volume 9.5 7.6 - 12.9 [facility] LABORATORY NRBC% auto 0.0 % [facility] NRBC Absolute 0.000 0.000 - 0.000 x10(3)/[facility] Blood 01/09/2024 2:58 PM EDT 01/09/2024 3:03 PM EDT Narrative Resulting Agency Comment Spec In Lab Zak Farmer MD HEMATOLOGY ORDERABL ES [facility] [place] [address] * Basic Metabolic Panel (non-fasting) (01/09/2024 2:58 [...] MD CHEMISTRY ORDERABLE S Performing Organization Address [facility] Co de Phone Number [facility] [place] [address] * Hepatic Function Panel (01/09/2024 2:58 PM [...] MD CHEMISTRY ORDERABLE S Performing Organization Address [facility] Co de Phone Number [facility] [place] [address] * Prothrombin Time (01/09/2024 2:58 PM EDT) [...] MD HEMATOLOGY ORDERABL ES Performing Organization Address City/[facility]/ZIP Co de Phone Number [facility] [place] [address] * Type and Screen Future Surgery, [facility] [...] Farmer MD BLOOD BANK LAB ORDE RABLES [facility] [place] [address] documented in this encounter Visit Diagnoses Diagnosis Nonrheumatic aortic valve stenosis Aortic valve disorders documented in this encounter Care Teams Personal Development Educator Relationship Specialty Start Date End Date Vanessa Christian APRN PCP - General Family Medicine 1/15/24 8/20/24 documented as of this encounter
--- OUTSIDE RECORDS SUMMARY | 2024-07-16 10:00 | XMS_ITS | Encounter Summary ---
[place] [address] Care Team Providers Care Manager News Name Role Phone Victor M Lafleur MD Primary Care Provider [phone] Reason for Visit * Reason Onset Date Comments Referral 09/20/2023 Encounter Details Date Type Department Care Team (Late st Contact Info) Description 09/20/2023 Telephone Cardiology at [address] [address] Karen Billy, floor covering layer Social History Tobacco Use Types Packs/Day Years [...] filedocumented in this encounter Care Teams Manager News Relationship Specialty Start Date End Date Victor M Lafleur MD PCP - General 10/02/13 10/20/23 documented as of this encounter
--- OUTSIDE RECORDS SUMMARY | 2024-07-16 10:00 | XMS_ITS | Encounter Summary ---
Author Organization [facility] [place] [address] Care Team Providers Care Cps Team Lead Name Role Phone Victor M Lafleur MD Primary Care Provider [phone] Encounter Details Date Type Department Care Team (Late st Contact Info) Description 09/26/2023 Abstract Cardiology at [address] [address] Karen Billy, RN Nonrheumatic aortic [...] face documented in this encounter Care Teams Cps Team Lead Relationship Specialty Start Date End Date Victor M Lafleur MD PCP - General 10/02/13 10/20/23 documented as of this encounter
--- OUTSIDE RECORDS SUMMARY | 2024-07-16 10:00 | XMS_ITS | Encounter Summary ---
Author Organization [facility] [place] [address] Care Team Providers Care Vein Access Technician Name Role Phone Vanessa Christian APRN Primary Care Provider [phone] Encounter Details Date Type Department Care Team [...] on filedocumented in this encounter Care Teams Vein Access Technician Relationship Specialty Start Date End Date Vanessa Christian APRN PCP - General Family Medicine 10/21/23 05/26/24 documented as of this encounter
[2024-07-21 10:00] VITALS: BP 129/71; PULSE 81
--- OUTSIDE RECORDS SUMMARY | 2024-07-21 10:09 | XMS_ITS | Encounter Summary ---
[place] [address] Care Team Providers Care Dry Plasterer Name Role Phone Aparna Jordan MAURI Primary Care Provider [phone] Reason for Referral * Diagnostic Test (Routine) - New Request Specialty Diagnoses / Procedures Referred By Contac t Referred To Contact Cardiology Diagnoses S/P AVR Procedures Echocardiogram Transthoracic Neftali Menon PA [facility] [place] [address] [facility] [place] [address] Referral ID Status Reason Start Date Expiration Date Visits Requested Visits Authorized [id number] New Request Specialty Service Requested 02/24/2024 02/23/2025 1 1 * Consultation (Routine) - Authorized Specialty Diagnoses / Procedures Referred By Contac t Referred To Contact Cardiology Diagnoses S/P AVR Hayder Graham MD [facility] [place] [address] Cardiac Rehab, [facility] [address] [place] [address] [place] [address] Referral ID Status Reason Start Date Expiration Date Visits Requested Visits Authorized [id number] Authorized Consult, Test & Treat 02/24/2024 08/22/2024 36 36 * Home Health Care (Routine) - Authorized Specialty Diagnoses / Procedures Referred By Sixto mendoza Referred To Contact Diagnoses S/P AVR Hayder Graham MD [facility] [place] [address] Referral ID Status Reason Start Date Expiration Date Visits Requested Visits Authorized [id number] Authorized Consult, Test & Treat 02/24/2024 08/22/2024 [...] (WRVU 7.93) Hayder Graham MD [facility] [place] [address] [facility] Referral ID Status Reason Start Date Expiration Date Visits Re quested Visits Authorized [id number] 1 1 Encounter Details Date Type Department Care Team (Latest Contact Info) Description 02/17/2024 5:43 AM EDT - 02/24/2024 11:23 AM EDT Hospital Encounter Heart and Vascular Unit Level 4 [place] [address] Hayder Graham MD [facility] [place] [address] S/P AVR (Primary Dx); Aortic valve stenosis, [...] Patient Age: 63 y.o. Birthdate: 1960 Language: Moroccan Race: White Ethnicity: Not nor Admit Date: 02/17/2024 Discharge Date: 02/24/24 Attending Physician: Hayder Graham MD Follow-up Recommendations for Providers: Please continue routine management of cardiovascular risk factors including blood pressure, lipids,glucose, etc. Please note any changes to medications. Patient to follow up with PCP, Aparna Jordan APRN, in 1-2 weeks. Patient to follow up with Personal Injury Specialist, Neftali Ernandez MD , in 2 weeks. Patient to follow up with Cardiac Surgeon, Dr. Hayder Graham, with a chest x-ray, EKG, and Echo. 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 Past Surgical History: Procedure Laterality Date PRO CABG, ARTERIAL, SINGLE N/A 02/17/2024 @CABG, USING ARTERIAL GRAFT;SINGLE ARTERIAL GRAFT (WRVU 33.75) performed by Hayder Grahma MD at [facility] MAIN OR PRO CABG, ARTERY-VEIN, TWO N/A 02/17/2024 @CABG, TWO VENOUS GRAFTS & ARTERIAL GRAFT (WRVU 7.93) performed by Hayder Graham MD at [facility] MAIN OR PRO ENDOSCOPY W/VIDEO-ASST VEIN HARVEST, CABG Left 02/17/2024 ENDOSCOPIC HARVEST VEIN(S) FOR CABG (WRVU 0.31) performed by Hayder Graham MD at [facility] MAIN OR PRO REPLACEMENT PROSTHETIC AORTIC VALVE OPEN W CARDIOPULMONARY BYPASS HOMOGRF/STENT N/A 02/17/2024 @REPLACE AORTIC VALVE, OPEN, W\CPB, W\PROSTHETIC VALVE (WRVU 41.32) performed by Hayder Graham MD at [facility] MAIN OR Prior To Admission Medications [...] insufficiency. He has glaucoma. He used to Sennari until about 15 years ago. He has undergone prior herniorrhaphy. 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 Major Procedures/Operations: 02/17/24 s/p avr/cabgx3 CABG x 3 JOSE->LAD SVG->dRCA SVG->OM1 EVH from LLE AVR with a 23 mm Inspiris Bioprosthesis Hospital Course: Karlos Garcia was admitted to [facility] on 02/17/2024 via the Same [...] Hayder Graham and/or the Cardiac Surgery Physician Calibration Laboratory Technician Team may be reached at . [...] Dr. Hayder Graham. You may use a [place] or treadmill but avoid any pulling [...] friends, go to a movie, go to shinto, etc. Heavy activities: No hunting, skiing, jogging, [...] while being managed by your PCP and/or Personal Injury Specialist. For future medication refills, please refer to your PCP and/or Personal Injury Specialist after your discharge from our service. Thank you REMOVE CHEST TUBE SUTURES ON OR AFTER 03/02/24 Home oxygen therapy: N/A Follow up appointments: You should follow up with your PCP, Aparna Jordan APRN, in 1-2 weeks. Our office will schedule an appointment with your Personal Injury Specialist, Neftali Ernandez MD , in 2 weeks. You have an appointment with your Cardiac Surgeon, Dr. Hayder Graham, 4 weeks with a chest x-ray, EKG, and Echo before your appointment. Cardiac Rehabilitation: Karlos Garcia was seen regarding participation in the outpatient Phase 2Cardiac Rehabilitation at [facility]. The patient agrees to a referral to this program. The referral will be sent at discharge and the patient should be contacted by the Program within 1- 2 weeks from discharge. Future Appointments and Orders Future Orders Complete By Expires Echocardiogram Transthoracic [54199 CPT(R)] 03/26/2024 09/25/2024 Process Instructions: Scheduling Instructions: Questions: Where will study be performed?: [facility] Clin[facility] Does the patient have Congenital Heart Disease?: Does patient require sedation?: Sedation rationale: XR Chest PA & Lateral (Generic) [98555 72178 Custom] 03/26/2024 09/25/2024 Process Instructions: Scheduling Instructions: Questions: Portable exam?: Reason for exam and clinical history: s/p avr/cabg Clinical information / jerome questions for radiologist: Stat read required?: Date of injury if applicable: Requested Time: Where will study be performed?: [facility] Radiology Referral to Cardiac Rehab [[id number] Custom] As directed Process Instructions: If no progress note charted, please enter Clinical details in comments. Scheduling Instructions: Questions: My question or request is: s/p AVR/CABG. Cardiac rehab at [facility]. Referral to Home Health [REF34 Custom] As directed Process Instructions: If no progress note charted, please enter Clinical details in comments. Scheduling Instructions: Comments: Please evaluate Karlos Garcia for admission to Home Health. [address] Phone Number: Date of : 1960 Inpatient DOCUMENTATION FOR VNA SERVICES (INCLUDING THOSE PATIENTS WITH MEDICARE COVERAGE REQUIRING HOME VNA SERVICES AND/OR HOSPICE SERVICES) PATIENT'S LOCATION: Karlos Garcia [address] [employer] [phone] Intellectual Property Paralegal's Name: self/family In discussion with the attending physician, it is certified that this patient is under their care and that they, or a Nurse Practitioner, or Physician Calibration Laboratory Technician who is working directly with them, [...] for services as follows: HOME HEALTH AGENCY: [facility] [address] [place] [address] RN orders: Cardiopulmonary assessment, incisional assessment, assess [...] issues please call the Cardiology Office at [phone] FOR MEDICARE ONLY: (please delete this section [...] APRN [address] / [place] [address] . All VNA agencies which cover the area of patient's residence have been reviewed, either verbally or in writing, and patient/family have chosen the home health care agency noted. Questions: Disciplines Requested: Nursing Physical Therapy Arrangements for VNA/home care: As above. Signed: NEFTALI MENON PA-C [facility] Section of Cardiac Surgery [facility] [address] FAX [phone] Date: 02/24/2024 CC: Aparna Jordan, MAURI Jordan, Aparna Sherman APRN [address] [place] [address] documented in this encounter Discharge Instructions * [...] Hayder Graham and/or the Cardiac Surgery Physician Calibration Laboratory Technician Team may be reached at . [...] Dr. Hayder Graham. You may use a [place] Track or treadmill but avoid any pulling [...] friends, go to a movie, go to shinto, etc. Heavy activities: No hunting, skiing, jogging, [...] while being managed by your PCP and/or Personal Injury Specialist. For future medication refills, please refer to your PCP and/or Personal Injury Specialist after your discharge from our service. Thank you REMOVE CHEST TUBE SUTURES ON OR AFTER 03/02/24 Home oxygen therapy: N/A Follow up appointments: You should follow up with your PCP, Aparna Jordan APRN, in 1-2 weeks. Our office will schedule an appointment with your Personal Injury Specialist, Neftali Ernandez MD , in 2 weeks. You have an appointment with your Cardiac Surgeon, Dr. Hayder Graham, 4 weeks with a chest x-ray, EKG, and Echo before your appointment. Cardiac Rehabilitation: Karlos Garcia was seen regarding participation in the outpatient Phase 2Cardiac Rehabilitation at [facility]. The patient agrees to a referral [...] Place 1 drop into both eyes daily. apixaban (Eliquis) 5 mg tablet Take 1 tablet by mouth 2 times daily. 180 tablet 3 02/24/2024 05/27/2024 metoprolol tartrate (Lopressor) 100 mg tablet Take 1 tablet by mouth 2 times daily. 180 tablet 3 02/24/2024 05/27/2024 lisinopriL (Zestril) 10 mg tablet Take 1 [...] 0600 and on the weekends please page [phone]. * Eric Barahona PA - 02/23/2024 9:27 [...] 0600 and on the weekends please page [phone]. * Tiffanie Owens PTA - 02/22/2024 2:48 [...] for 10 days. 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 * Kelley Hinson, MANAGER OF CONSTRUCTION - 02/21/2024 10:15 AM EDT Physical Therapy [...] for 10 days. 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 * Kelley Hinson PTA - 02/20/2024 3:32 [...] at that time Kelley Hinson PTA Pager: [phone] Physical Therapy Inpatient Rehab Department * Louisa [...] 0600 and on the weekends please page [phone]. * Maris Benavides, PT - 02/19/2024 11:22 [...] for 10 days. 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 Precautions/Special Considerations: STERNAL [...] outlined inthis evaluation. MARIS BENAVIDES, PT Pager: [phone] Physical Therapy Inpatient Rehabilitation Department Time IN / OUT: 3340-9516 Total Time: 38 (eval) minutes; * Antonio [...] 0600 and on the weekends please page [phone]. * Minnie Begum PA - 02/18/2024 8:25 [...] site CDI with SANJANA wrap Tubes/Lines/Drains: RIJ/PAC, Morrow, Jacky Ctx, L pleural CT, TPW, Delaney [...] 0600 and on the weekends please page [phone]. * Kim Ha RCP - 02/17/2024 2:25 [...] plan since last visit. Hayder Graham MD [phone] Source Note - Hayder Graham MD - [...] insufficiency. He has glaucoma. He used to Sennari until about 15 years ago. He has [...] given written informed consent. Hayder Graham MD [phone] * Hayder Graham MD - 02/17/2024 7:00 [...] given written informed consent. Hayder Graham MD [phone] documented in this encounter Miscellaneous Notes * [...] information for follow-up Home Health & Hospice, [address] [place] [address] Cardiac Rehab, [address] [place] [address] Transportation: family or friend will provide Functional status prior to admission: Independent Home Environment: Others in the home: alone. Current Living Arrangements: home/apartment/condo. Accessibility Concerns:a few steps to enter 1 floor home. Current Functional Ability: Assistive Person and Equipment DME used at home: none DME Needed at Discharge: N/A Patient is insured through: Primary Insurance: [facility] Payor: [facility] / Plan: [facility] PPO / Product Type: *No Product [...] pain managed with scheduled Tylenol. Worked with [employer]. Ambulated in the roque multiple times during [...] anticipated Patient is insured through: Primary Insurance: [employer] Payor: [facility] / Plan: [facility] PPO / Product Type: *No Product type* / Secondary Insurance: N/A Last Physical Therapy Recommendation: home with home health (Str coming to stay for a week or two upon d/c) with to be determined (owns rolling walker, shower seat) Plan for discharge is: Home w/ Services Outpatient Agency/Support Group Needs: Homecare agency Home Health Services: Physical Therapy, Registered Nurse Agency Referrals: [facility]. [address] [place] [address] Transportation: family or friend will provide Barriers to discharge: Discharge planning Plan going forward: Service Care Management will continue to follow and assist with discharge planning and coordination of care as indicated. Anticipated Date of Discharge: 02/22/2024 Rhett Bell RN RN/CM - Cellphone: [phone] Pager: [phone] Covering Service RN/CM * Plan of Care [...] 02/19/2024 10:44 AM EDT [facility] CARDIAC REHABILITATION Karlos Garcia was seen today regarding participation in the outpatient Phase [address] [facility]. 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 (Only good for 180 days) Any patient receiving care in [place] must abide by [place] law. The hierarchy for surrogate decision making [...] (i) The agent with financial power of geochemical laboratory technician or a conservator appointed in accordance with [...] place to sleep or slept in [facility] (including now)?: No In the past 12 months has the [employer], gas, oil, or water [employer] threatened to shut off services in your [...] Home Address confirmed as: [address] [facility] [address] Physical address: [address] [facility], [address] Social & Family Supports: All names listed [...] Payor: [facility] / Plan: [facility] PPO / Product Type: *No Product type* / Secondary Insurance: N/A ; Prescription Coverage: Yes Preferred Pharmacy: [id number] AT [address] [address] Farrar Status: Patient is a : No Primary Care Provider confirmed: Aparna Jordan, ALMOND PASTE MOLDER [phone] Patient/Caregiver Goals of Treatment: dc to home Potential Needs for Transition of Care: home health care Agency Referrals: I have met with the patient to: discuss discharge planning needs. provide the [facility], Office of Care Management letter from the Toe Stapler pertaining to rehab referrals. provide a letter describing our affiliations within the [facility] and educate about their right to choose where referrals are sent. provide a list of Home Health Agencies / Durable Medical Equipment vendors which serve their preferred geographic area. provided patient with [facility] Star Quality Rating handout. They have requested referrals to: [facility]. [address] [place] [address] Note routed to a Decal Transferrer who will communicate referrals to facilities and [...] Reina Greene RN CM, BSN, CMGT- Ext [phone] * Plan of Care - Binta Trinidad [...] Operative Note Patient Name: Karlos Garcia : [id number] MR#: [id number] Case Date: 02/17/2024 Surgeon: Surgeon(s) and Role: * Hayder Graham MD - Primary * Neftali Menon PA - Physician Calibration Laboratory Technician Preoperative diagnosis: CAD Postoperative diagnosis: CAD, [...] 02/17/2024 8:20 AM EDT [facility] Operative Note Patient Name: Karlos Garcia : [id number] MR#: [id number] Case Date: 02/17/2024 Surgeon: Surgeons and Role: * Hayder Graham MD - Primary * Neftali Menon PA - Physician Calibration Laboratory Technician Preoperative diagnosis: CAD Postoperative diagnosis: CAD, [...] Aortic Valve Open W Cardiopulmonary Bypass Homogrf/Stent (67400) Yes 02/17/2024 7:28 AM EDT CAD Cabg, Artery-Vein, Two (91615) Yes 02/17/2024 7:28 AM EDT CAD Cabg, Arterial, Single (80155) Yes 02/17/2024 7:28 AM EDT CAD Endoscopy W/Video-Asst Vein [facility], Cabg (02976) Yes 02/17/2024 7:28 AM EDT CAD POCT [...] ORDERABLE S [facility] [place] [address] * (ABNORMAL) Basic Metabolic Panel (non-fasting) (02/23/2024 [...] Carpio MD CHEMISTRY ORDERABLES Performing Organization Address City/[facility]/ZIP Co de Phone Number [facility] [place] [address] * Potassium (02/22/2024 4:30 AM EDT) [facility] Potassium 3.5 3.5 - 5.0 mmol/L [facility] [...] ORDERABLE S Performing Organization Address City/[facility]/ZIP Co de Phone Number [facility] [place] [address] * (ABNORMAL) Basic Metabolic Panel (non-fasting) (02/21/2024 [...] LABORATORY Carbon Dioxide Not Perf 22 - [facility] Comment:Add-on request. [...] Carpio MD CHEMISTRY ORDERABLES Performing Organization Address City/[facility]/ZIP Co de Phone Number [facility] [place] [address] * Lactate, whole blood, send to lab ([facility]) (02/21/2024 9:45 AM EDT) [facility] Lactate WB 2.0 0.5 - 2.2 mmol/L [facility] Blood 02/21/2024 9:45 AM EDT 02/21/2024 9:52 AM EDT Narrative Resulting Agency Comment Spec In Lab Hayder Graham MD CHEMISTRY ORDERABLE S Performing Organization Address [facility] Co de Phone Number [facility] [place] [address] * (ABNORMAL) Hepatic Function Panel (02/21/2024 9:45 AM EDT) [facility] Protein, Total 5.7(L) 6.1 - [...] ORDERABLE S Performing Organization Address City/[facility]/ZIP Co de Phone Number [facility] [place] [address] * Lipase (02/21/2024 9:45 AM EDT) [facility] Lipase 56 0 - 60 unit/L [facility] Blood 02/21/2024 9:45 AM EDT 02/21/2024 9:52 AM EDT Narrative Resulting Agency Comment Spec In Lab Hayder Graham MD CHEMISTRY ORDERABLE S Performing Organization Address [facility] Co de Phone Number [facility] [place] [address] * Amylase (02/21/2024 9:45 AM EDT) Amylase 69 28 - 100 unit/L [facility] Blood 02/21/2024 9:45 AM EDT 02/21/2024 9:52 AM EDT Narrative Resulting Agency Comment Spec In Lab Hayder Graham MD CHEMISTRY ORDERABLE S Performing Organization Address [facility] Phone Number [facility] [place] [address] * Potassium (02/21/2024 3:08 AM EDT) Potassium [...] ORDERABLE S Performing Organization Address [facility] Co de Phone Number [facility] [place] [address] * XR Chest PA & Lateral (Generic) (02/20/2024 10:19 AM EDT) WORKSTATION ID [id number] DH RAD Anatomical Region Laterality Modality Chest N/A Digital Radiogra phy Impressions 02/20/2024 1:11 PM EDT Small pleural effusions. No pneumothorax Thank you for letting us participate in the care of this patient. ??If you are a health care provider and have any questions regarding this report, please contact the number below. ??For patients who have questions please contact the health director of critical care that requested your imaging first. ? Electronically signed by: Rogerio Cruz MD, [facility] ??([phone]), at 02/20/2024 1:11 PM Narrative 02/20/2024 1:11 PM EDT EXAMINATION: XR CHEST PA AND LATERAL (GENERIC) CLINICAL HISTORY: s/p AVR/CABGx3 TECHNIQUE: PA and lateral views of the chest COMPARISON: 02/17/2024 FINDINGS: Support devices: Interval removal of [place]-Kaila catheter, endotracheal tube and mediastinal chest tubes The cardiac silhouette is stable status post median sternotomy, CABG and aortic valve replacement. There are small pleural effusions. No pneumothorax. Procedure Note Rogerio Cruz MD - 02/20/2024 EXAMINATION: XR CHEST PA AND LATERAL (GENERIC) CLINICAL HISTORY: s/p AVR/CABGx3 TECHNIQUE: PA and lateral views of the chest COMPARISON: 02/17/2024 FINDINGS: Support devices: Interval removal of [place]-Kaila catheter, endotracheal tubeand mediastinal chest tubes The [...] have questions please contactthe health director of critical care that requested your imaging first. Hayder Graham MD IMG DX ORDERABLES * Scan, Peripheral Blood (02/20/2024 4:23 AM EDT) Pathologist [facility] [place] estimate Decreased [facility] RBC Morphology Normal [facility] Blood 02/20/2024 4:23 AM EDT 02/20/2024 4:42 AM EDT Narrative Resulting Agency Comment Spec In Lab Minnie FRENCH HEMATOLOGY CECILIO ALEMAN [facility] [place] [address] * (ABNORMAL) Differential, Automated (02/20/2024 4:23 AM EDT) [facility] Neutrophil % 81.7 % [facility] Neutrophil Absolute 10.37(H) 1.70 - 6.10 x10(3)/mc L [facility] Lymph % 7.4 % [facility] Lymphocytes Abs 0.9 0.9 - 3.2 x10(3)/mc L [facility] Monocyte % 9.7 % [facility] Monocyte Abs 1.2(H) 0.3 - 0.9 x10(3)/mc L [facility] Eos % 0.1 % [facility] [...] 0.12(H) 0.00 - 0.04 x10(3)/mc L [facility] Blood 02/20/2024 4:23 AM EDT 02/20/2024 4:42 AM EDT Narrative Resulting Agency Comment Spec In Lab Minnie FRENCH HEMATOLOGY CECILIO ALEMAN [facility] [place] [address] * (ABNORMAL) Hemogram (02/20/2024 4:23 AM EDT) White Blood Cell 12.7(H) 4.0 - 9.5 x10(3)/mc L [facility] [...] RDW Standard Deviation 43.5 36.0 - 45.0 [facility] LABORATORY RDW coefficient of variation 13.7 11.4 - 13.8 % [facility] Mean Platelet Volume 10.2 7.6 - 12.9 [facility] LABORATORY NRBC% auto 0.0 % [facility] NRBC Absolute 0.000 0.000 - 0.000 x10(3)/mc L [facility] Blood 02/20/2024 4:23 AM EDT 02/20/2024 4:42 AM EDT Narrative Resulting Agency Comment Spec In Lab Minnie FRENCH HEMATOLOGY CECILIO ALEMAN [facility] [place] [address] * (ABNORMAL) Basic Metabolic Panel (non-fasting) (02/20/2024 [...] ORDERABLE S Performing Organization Address [facility] Co de Phone Number [facility] [place] [address] * Potassium (02/19/2024 3:57 AM EDT) Potassium [...] Resulting Agency Comment Spec In Lab Hayder Graahm MD CHEMISTRY ORDERABLE S Performing Organization Address [facility] Co de Phone Number [facility] [place] [address] * POCT Glucose (02/18/2024 8:24 AM EDT) Glucose, POC 157 65 - 199 mg/dL [facility] Comment: Supplemental ranges: <140 mg/dL before meals <180 mg/dL all other times of the day Blood 02/18/2024 8:24 AM EDT 02/18/2024 8:24 AM EDT Hayder Graham MD POINT OF CARE TEST ORDERABLES [facility] [place] [address] * Scan, Peripheral Blood (02/18/2024 1:40 AM EDT) Plat estimate Decreased [facility] RBC Morphology Normal [facility] Blood 02/18/2024 1:40 AM EDT 02/18/2024 1:56 AM EDT Narrative Resulting Agency Comment Spec In Lab Neftali FRENCH HEMATOLOGY ORDER OLE Performing Organization Address City/[facility]/ZIP Co de Phone Number [facility] [place] [address] * (ABNORMAL) Differential, Automated (02/18/2024 1:40 AM EDT) [facility] Neutrophil % 87.1 % [facility] Neutrophil Absolute 15.03(H) 1.70 - 6.10 x10(3)/mc L [facility] Lymph % 3.0 % [facility] Lymphocytes Abs 0.5(L) 0.9 - 3.2 x10(3)/mc L [facility] Monocyte % 9.1 % [facility] Monocyte Abs 1.6(H) 0.3 - 0.9 x10(3)/mc L [facility] Eos % 0.0 % [facility] [...] ORDER OLE [facility] [place] [address] * (ABNORMAL) Hemogram (02/18/2024 1:40 AM EDT) [...] Platelet 147 145 - 357 x10(3)/ L [facility] ORDER OLE [facility] [place] [address] * (ABNORMAL) Basic Metabolic Panel (non-fasting) (02/18/2024 [...] ORDERABLE S Performing Organization Address City/[facility]/ZIP Co de Phone Number [facility] [place] [address] * (ABNORMAL) Troponin (02/18/2024 1:40 AM EDT) Pathologist [facility] Troponin-T, High Sensitivity 342(H) <=22 ng/L [facility] Test Catalog Reference: [place] Definition of Myocardial Infarction. Journal of the [place] [employer] 2018;72:5497-2343 Blood 02/18/2024 1:40 AM EDT 02/18/2024 1:56 AM EDT Narrative Resulting Agency Comment Spec In Lab Hayder Graham MD CHEMISTRY ORDERABLE S Performing Organization Address City/[facility]/ZIP Co de Phone Number [facility] [place] [address] * POCT Glucose (02/17/2024 8:13 PM EDT) Glucose, POC 142 65 - 199 mg/dL [facility] Comment: Supplemental ranges: <140 mg/dL before meals <180 mg/dL all other times of the day Blood 02/17/2024 8:13 PM EDT 02/17/2024 8:13 PM EDT Hayder Graham MD POINT OF CARE TEST ORDERABLES Performing Organization Address City/[facility]/ZIP Co de Phone Number [facility] [place] [address] * POCT Glucose (02/17/2024 5:42 PM EDT) Glucose, POC 160 65 - 199 mg/dL [facility] Comment: Supplemental ranges: <140 mg/dL before meals <180 mg/dL all other times of the day Blood 02/17/2024 5:42 PM EDT 02/17/2024 5:42 PM EDT Hayder Graham MD POINT OF CARE TEST ORDERABLES Performing Organization Address City/[facility]/ZIP Co de Phone Number [facility] [place] [address] * Hemoglobin (02/17/2024 5:42 PM EDT) Hemoglobin 13.7 13.7 - 16.5 g/dL [facility] Blood 02/17/2024 5:42 PM EDT 02/17/2024 6:10 PM EDT Narrative Resulting Agency Comment Spec In Lab Hayder Graham MD HEMATOLOGY ORDERABL ES [facility] [place] [address] * Potassium (02/17/2024 5:42 PM EDT) Potassium [...] MD CHEMISTRY ORDERABLE S Performing Organization Address City/State/[facility] Co de Phone Number [facility] [place] [address] * (ABNORMAL) BLOOD GAS 2 ARTERIAL (02/17/2024 [...] [facility] FIO2 Art 40 % [facility] PF Ratio Art 195 [facility] Blood 02/17/2024 4:18 PM EDT 02/17/2024 4:18 PM EDT Hayder Graham MD POINT OF CARE TEST ORDERABLES [facility] [place] [phone] * XR Chest One View (02/17/2024 1:44 PM EDT) [employer] WORKSTATION ID [id number] DH RAD Anatomical Region Laterality Modality Chest N/A Digital Radiogra phy Impressions 02/17/2024 2:12 PM EDT 1. ??No definite pleural fluid collection or pneumothorax. 2. ??Right IJ [place]-Kaila catheter tip terminates in a descending branch [...] questions please contact the health director of critical care that requested your imaging first. ? Electronically signed by: Denzel Hankins MD, [facility] ??([phone]), at 02/17/2024 2:12 PM Narrative 02/17/2024 2:12 PM EDT EXAMINATION: XR CHEST ONE VIEW CLINICAL HISTORY: s/p avr/cabg eval effusions TECHNIQUE: 1 view of the chest COMPARISON: Chest x-ray 01/09/2024, chest CT 02/03/2024 FINDINGS: ET tube tip terminates 5.2 cm above the carlos. Right IJ [place]-Kaila catheter tip terminates in a descending branch [...] 5.2 cm above the carlos. Right IJ Redwater-Ganzcatheter tip terminates in a descending branch of [...] fluid collection or pneumothorax. 2. Right IJ [place]-Kaila catheter tip terminates in a descending branch ofthe right pulmonary artery. Suggest catheter retraction. 3. Additional support lines and tubes as above. Thank you for letting us participate in the care of this patient. If youare a health care provider and have any questions regarding this report,please contact the number below. For patients who have questions please contactthe health director of critical care that requested your imaging first. Electronically signed by: Denzel Hankins MD, [facility]([phone]), at 02/17/2024 2:12 PM Hayder Graham MD [...] [facility] FIO2 Art 100 % [facility] PF Ratio Art 320 [facility] Blood 02/17/2024 1:31 PM EDT 02/17/2024 1:31 PM EDT Hayder Graham MD POINT OF CARE TEST ORDERABLES Performing Organization Address City/[facility]/ZIP Co de Phone Number [facility] [place] [address] * (ABNORMAL) Coox2 (02/17/2024 1:21 PM EDT) [...] OF CARE TEST ORDERABLES Performing Organization Address City/[facility] Co de Phone Number [facility] [place] [address] * (ABNORMAL) BLOOD GAS 2 ARTERIAL (02/17/2024 [...] TEST ORDERABLES Performing Organization Address [facility] Co de Phone Number [facility] [place] [address] * (ABNORMAL) Fibrinogen (02/17/2024 12:10 PM EDT) [...] ORDERABLE S Performing Organization Address [facility] Co de Phone Number [facility] [place] [address] * (ABNORMAL) Thrombin time (02/17/2024 12:10 PM [...] ORDERABLE S Performing Organization Address [facility] de Phone Number [facility] [place] [address] * APTT (02/17/2024 12:10 PM EDT) Partial [...] S Performing Organization Address [facility] de Phone Number [facility] [place] [address] * (ABNORMAL) Prothrombin Time (02/17/2024 12:10 PM [...] S [facility] [place] [address] * (ABNORMAL) Hemogram (02/17/2024 12:10 PM EDT) [...] RDW Standard Deviation 40.2 36.0 - 45.0 [facility] RDW coefficient of variation 12.8 11.4 [...] S [facility] [place] [address] * (ABNORMAL) BLOOD GAS 2 ARTERIAL (02/17/2024 [...] [facility] Comment: Noted by instrumentation engineer. Please note: Patients with WBC >100,000 [...] TEST ORDERABLES [facility] [place] [address] * (ABNORMAL) BLOOD GAS 2 ARTERIAL (02/17/2024 [...] [facility] Comment: Noted by instrumentation engineer. Please note: Patients with WBC >100,000 [...] TEST ORDERABLES Performing Organization Address [facility] Co de Phone Number [facility] [place] [address] * (ABNORMAL) Hemoglobin and Hematocrit, blood (02/17/2024 [...] ORDERABL ES Performing Organization Address [facility]/ZIP Co de Phone Number [facility] [place] [address] * (ABNORMAL) Platelet count (02/17/2024 11:04 AM EDT) Platelet 106(L) 145 - 357 x10(3)/mc L [facility] Immature Plt % 1.6 0.0 - 7.4 % [facility] Comment: Limitation of the Immature Platelet Fraction (IPF)-May be less reliable when the platelet count is less than 33w153/uL due to statistical imprecision. The IPF value [...] in a decreased state of production. References: [employer] The Clinical Value of the Immature Platelet Fraction (IPF) in Cell Recovery Document Number [id number] 03/2011 [employer] The Role of the Immature Platelet Fraction (IPF) in the Differential Diagnosis of Thrombocytopenia, Document [id number] V002/15/14 P002/17 Blood 02/17/2024 11:0 4 AM EDT 02/17/2024 11:12 AM EDT Narrative Resulting Agency Comment Spec In Lab Hayder Graham MD HEMATOLOGY ORDERABL ES Performing Organization Address [facility] Co de Phone Number [facility] [place] [address] * (ABNORMAL) Fibrinogen (02/17/2024 11:04 AM EDT) [...] ORDERABL ES [facility] [place] [address] * (ABNORMAL) BLOOD GAS 2 ARTERIAL (02/17/2024 [...] TEST ORDERABLES [facility] [place] [address] * (ABNORMAL) BLOOD GAS 2 ARTERIAL (02/17/2024 [...] TEST ORDERABLES [facility] [place] [address] * Surgical Pathology Report (02/17/2024 10:01 AM EDT) Final Diagnosis [id number] ? Location: [facility]; [facility]; The signing pathologist has (i) examined the relevant preparation(s) for the specimen(s) and (ii) rendered or confirmed the diagnosis(es). . ?Surgical Pathology DIAGNOSIS Aortic valve leaflets, excision: Valve leaflets with myxoid degeneration, nodular fibrosis and dystrophic calcifications. Electronically signed by: ?Livier Montoya MD Verified: ??02/24/2024 13:49 ??Pathologist Performed at: ??-[facility] Dept. of Pathology, [place] [address] Toe Stapler: Job Brewer MD, AP, ??IA Certificate: [id number] SPECIMEN(S) SUBMITTED A - Aortic Valve Leaflets, [...] Sections Processing Blocks submitted for decalcification: A1. Core Layer Machine Operator sections in 1 cassette labeled A1. ??ajw 02/24/2024 1:49 PM EDT [facility] AORTIC STRUCTURE / Unknown 02/17/2024 10:01 AM EDT 02/17/2024 10:01 AM EDT Hayder Graham MD PATHOLOGY/[place] [address] * Specimen to Pathology (02/17/2024 10:01 AM EDT) AP Specimen 02/17/2024 10:0 1 AM EDT 02/17/2024 10:01 AM EDT Narrative [facility] - 02/17/2024 10:01 AM EDT Specimen requisition ordered. ??Separate Pathology report to follow Hayder Graham MD PATHOLOGY/CYTOLOGY ORDERABLES [facility] [place] [address] * (ABNORMAL) BLOOD GAS 2 ARTERIAL (02/17/2024 [...] TEST ORDERABLES [facility] [place] [address] * (ABNORMAL) BLOOD GAS 2 VENOUS (02/17/2024 9:34 AM EDT) pH, Venous 7.22(Criti marquez) 7.32 - 7.42 [facility] Comment:Noted by instrumentation engineer. PCO2, Venous 43 41 - 51 mmHg [facility] Comment:Noted by instrumentation engineer. PO2, Venous 57(H) 25 - 40 mmHg [facility] Comment:Noted by instrumentation engineer. Bicarbonate, Venous 17.1 mmol/L [facility] Comment:Noted by instrumentation engineer. Base Excess, Venous -10.6 mmol/L [facility] Comment:Noted by instrumentation engineer. Hgb Blood Gas 11.2(L) 13.7 - 16.5 g/dL [facility] Comment:Noted by instrumentation engineer. Oxyhemoglobin, Venous 86.5 % [facility] Comment:Noted by instrumentation engineer. Carboxyhemoglob in, Venous 0.3 % [facility] Comment: Noted by instrumentation engineer. Nonsmokers: 0.5-1.5% COHB Smokers: Variable, but usually less than 10% Toxic: 20-30% COHB Lethal: Greater than 60% COHB Methemoglobin, Venous 0.0 <=1.5 % [facility] Comment:Noted by instrumentation engineer. Na Whole Blood 156(H) 135 - 145 mmol/L [facility] Comment:Noted by instrumentation engineer. K Whole Blood 5.5(H) 3.5 - 5.0 mmol/L [facility] Comment: Noted by instrumentation engineer. Please note: Patients with WBC >100,000 may have falsely elevated Potassium levels. Contact the Clinical Chemistry Laboratory if there are any questions. ICa Whole Blood 1.03(L) 1.15 - 1.33 mmol/L [facility] Comment: Noted by instrumentation engineer. Note: ??Total bilirubin higher than 20 mg/dL may lead to falsely low ionized calcium. CL Whole Blood 100 98 - 107 mmol/L [facility] Comment:Noted by instrumentation engineer. Gluc Whole Bld 132 65 - 199 mg/dL [facility] Comment: Noted by instrumentation engineer. Diabetes: >=200 mg/dL plus symptoms Lactate WB 1.0 0.5 - 2.2 mmol/L [facility] Comment:Noted by instrumentation engineer. Blood Gas Source Venous [facility] Blood 02/17/2024 9:34 AM EDT 02/17/2024 9:34 AM EDT Hayder Graham MD POINT OF CARE TEST ORDERABLES [facility] [place] [address] * (ABNORMAL) BLOOD GAS 2 ARTERIAL (02/17/2024 [...] TEST ORDERABLES Performing Organization Address [facility] Co de Phone Number [facility] [place] [address] * POCT Glucose (02/17/2024 6:38 AM EDT) Glucose, POC 98 65 - 199 mg/dL [facility] Comment: Supplemental ranges: <140 mg/dL before meals <180 mg/dL all other times of the day Blood 02/17/2024 6:38 AM EDT 02/17/2024 6:38 AM EDT Hayder Graham MD POINT OF CARE TEST ORDERABLES Performing Organization Address [facility] Co de Phone Number [facility] [place] [phone] * Transesophageal Echo/OR (02/17/2024 6:33 AM EDT) [...] [facility] [...] 6 hours upon arrival to Unit. Give RI if unable to take PO, Routine Given [...] dose on Sat02/17/24 at 1400, Until Discontinued, [place] teeth and / or gums. Scan the CHG vial in the [employer] Q-Care Oral Care Kit from floor stock. Ventilator-associated pneumonia prophylaxis For use in ICU/Critical care locations ONLY. Obtain kit from Floor Stock location. Scan CHG vial in the [employer] Q-Care Oral Care Kit, Routine Given 02/17/2024 [...] restart at 50% of previous rate. Call tank house supervisor if goal not achieved at maximum rate. [...] 25 mg, Oral, ONCE, 1 dose, On [facility] 02/22/24 at 1000, Routine Given 02/22/2024 10:02 AM EDT 25 mg metoprolol tartrate (Lopressor) tablet 50 mg 50 mg, Oral, EVERY 12 HOURS SCHEDULED (2 times per day), First dose (after last modification) on [facility] 02/22/24 at 2100, Until Discontinued, Hold for [...] PHENYLephrine and/or vasopressin ineffective. Call pager # [phone] if initiated. Titrate to keep systolic blood [...] 2.0 L/min/M2. Maximum volume 2 L. Call tank house supervisor for additional fluid orders: pager #[phone]. Rate/Dose Verify 02/18/2024 8:00 AM EDT 1 mL/hr 1 mL/hr Rate/Dose Verify 02/18/2024 6:00 AM EDT 1 mL/hr 1 mL/hr Rate/Dose Verify 02/18/2024 4:00 AM EDT 1 mL/hr 1 mL/hr sodium chloride 0.9% infusion 10-30 mL/hr, Intravenous, DAILY PRN, Starting on Sat02/17/24 at 1307, Until Sat02/18/24 at 0835, Side port TKO rate, per [facility] nursing protocol. Rate/Dose Verify 02/17/2024 [...] Polo Britton, COLBY)[phone] (Given - Provider: Reilly Vincent RN)1409 (Given [...] Routine documented in this encounter Care Teams Dry Plasterer Relationship Specialty Start Date End Date Aparna Jordan APRN PCP - General Family Medicine 10/21/23 05/26/24 documented as of this encounter
--- OUTSIDE RECORDS SUMMARY | 2024-07-21 10:09 | XMS_ITS | Clinical Summary ---
Author Organization [facility] Address [address] [place] [address] Care Team Providers Care Assistant Principal Name Role Phone Vanessa Christian NP Primary Care Provider [phone] Social History Tobacco Use Types Packs/Day Years [...] COVID-19 Vaccine (2022- season) 2024 Care Teams Assistant Principal Relationship Specialty Start Date End Date Vanessa Christian NP [address] [place] [id number] PCP - General Family Medicine - Primary Care 10/07/23
--- OUTSIDE RECORDS SUMMARY | 2024-07-21 10:09 | XMS_ITS | Encounter Summary ---
Author Organization [facility] Address [facility] [place] [address] Care Team Providers Care Brazer [employer] Name Role Phone Vanessa Christian MAURI Primary Care Provider [phone] Encounter Details Date Type Department Care Team [...] on filedocumented in this encounter Care Teams [employer] Relationship Specialty Start Date End Date Vanessa Christian APRN PCP - General Family Medicine 10/21/23 05/26/24 documented as of this encounter
--- OUTSIDE RECORDS SUMMARY | 2024-07-21 10:09 | XMS_ITS | Encounter Summary ---
Author Organization [facility] Address [facility] [place] [address] Care Team Providers Care Baggage Agent Supervisor Name Role Phone Vanessa Christian MAURI Primary Care Provider [phone] Encounter Details Date Type Department Care Team [...] on filedocumented in this encounter Care Teams Baggage Agent Supervisor Relationship Specialty Start Date End Date Vanessa Christian APRN PCP - General Family Medicine 10/21/23 05/26/24 documented as of this encounter
--- OUTSIDE RECORDS SUMMARY | 2024-07-21 10:09 | XMS_ITS | Encounter Summary ---
Author Organization [facility] Address [address] [place] [address] Care Team Providers Care Turbine Engineer Name Role Phone Vanessa Christian Lane MONCADA Primary Care Provider [phone] Encounter Details Date Type Department Care Team (Late st Contact Info) Description 10/24/2023 Lab Requisition [facility] - [address] [address] Oscar Nichole MD [address] [place] [address] [id number] Factitial dermatitis Social History Tobacco Use Types [...] management options, if applicable. 10/28/2023 11:24 EST [facility] Final Diagnosis A. SKIN OF MU-ISM, LEFT, SHAVE BIOPSY: - Seborrheic keratosis, pigmented. 10/28/2023 11:24 EST [facility] Attestation By the signature below, the attending physician certifies that they have 1) personally conducted a gross and/or microscopic examination of the described specimen(s), and/or personally interpreted the results of laboratory testing of the described specimen(s), and 2) personally rendered or confirmed the above diagnosis. 10/28/2023 11:24 [facility] at 1124 Microscopic Description The stratum corneum is thickened by compact and basketweave orthokeratosis with formation of horn pseudocysts. The epidermis is acanthotic with formation of broad and anastomosing trabeculae. The trabeculae are composed of basaloid keratinocytes with round uniform nuclei. The keratinocytes have a variable amount of melanin pigment. 10/28/2023 11:24 [facility] Clinical History Pigmented 2 cm patch; clinical diagnosis code: L98.1 10/28/2023 11:24 [facility] Gross Description A. Received in formalin labelled with proper patient identification (initials P, A) and left christianity is a shave biopsy of an irregular [...] A3. Nora Anderson 10/25/2023 8:47 10/28/2023 11:24 [facility] Performing Lab [facility] 10/28/2023 11:24 [facility] Scanned Images 10/28/2023 11:24 [facility] Tissue SPECIMEN FROM SKIN / Unknown 10/24/2023 14:30 EST 10/24/2023 22:04 EST Oscar Nichole MD PATHOLOGY ORDERABLES [facility] [address] [place] [address] documented in this encounter Visit Diagnoses Diagnosis Factitial dermatitis Dermatitis factitia (artefacta) documented in this encounter Care Teams Turbine Engineer Relationship Specialty Start Date End Date Vanessa Christian NP [address] [place] [phone] PCP - General Family Medicine - Primary Care 10/07/23 documented as of this encounter
--- OUTSIDE RECORDS SUMMARY | 2024-07-21 10:09 | XMS_ITS | Encounter Summary ---
Author Organization [facility] Address [facility] [place] [address] Care Team Providers Care Fall Intern Name Role Phone Vanessa Christian Lane DOTSON Primary Care Provider [phone] Reason for Visit * Reason Comments Coronary Artery Disease Aortic Stenosis Encounter Details Date Type Department Care Team (Latest Contact Info) Description 05/27/2024 11:00 AM EDT Office Visit Cardiology at [address] [phone] Neftali Ernandez MD [facility] [place] [address] ASCVD (arteriosclerotic cardiovascular disease); Nonrheumatic aortic valve stenosis Social History Tobacco Use Types Packs/Day Years Used Date Smoking Tobacco: Former Cigarettes Smokeless Tobacco: Never Comments:Quit 15 + years ago Alcohol Use Standard Drinks/Week Comments Yes 0 (1 standard drink = 0.6 oz pur e alcohol) rare [facility] Utilities Answer Date Recorded In the past 12 months has e [employer], gas, oil, or water [employer] threatened to shut off services in [...] disorders documented in this encounter Care Teams Fall Intern Relationship Specialty Start Date End Date Vanessa Christian, MAURI [address] [place] [address] PCP - General Family Medicine 05/27/24 documented as of this encounter
--- OUTSIDE RECORDS SUMMARY | 2024-07-21 10:09 | XMS_ITS | Encounter Summary ---
Author Organization [facility] Address [facility] [place] [address] Care Team Providers Care Energy Broker Name Role Phone Vanessa Christian SUPERVISOR HYDROCHLORIC AREA Primary Care Provider [phone] Encounter Details Date Type Department Care Team (Late st Contact Info) Description 03/12/2024 2:40 PM EDT Office [place] [phone] Zak Farmer MD [facility] [place]OTH[place] [address] Coronary artery disease, unspecified vessel or lesion [...] In the past 12 months has e [employer], gas, oil, or water [employer] threatened to shut off services in your [...] 2:40 PM EDT To: MD Vanessa Coles, SUPERVISOR HYDROCHLORIC AREA Re; Karlos Santa ( 1960) We had [...] office. Best personal regards, Zak Farmer MD [phone] documented in this encounter Plan of Treatment [...] (Bezet) 401 ms MUSE SYSTEM Calculated P [place] -12 degrees MUSE SYSTEM Calculated R [place] 24 degrees MUSE SYSTEM Calculated T [place] 74 degrees MUSE SYSTEM INTERPRETATION Sinus bradycardia T wave abnormality, consider anterior ischemia Abnormal ECG When compared with ECG of 17-FEB-2024 13:24, [place] interval has decreased T wave inversion now evident in Anterior leads Confirmed by Paul Guzman ([id number]) on 03/15/2024 8:36:23 AM MUSE SYSTEM 03/12/2024 2:35 PM EDT 03/15/2024 8:36 AM EDT Zak Farmer MD ECG ORDERABLES Neonode SYSTEM documented in this encounter Visit Diagnoses Diagnosis Coronary artery disease, unspecified vessel or lesion type, unspecified whether angina present, unspecified whether crow or transplanted heart documented in this encounter Care Teams Energy Broker Relationship Specialty Start Date End Date Vanessa Christian, MAURI PCP - General Family Medicine 10/21/23 05/26/24 documented as of this encounter
--- OUTSIDE RECORDS SUMMARY | 2024-07-21 10:09 | XMS_ITS | Encounter Summary ---
Author Organization [facility] Address [facility] [place] [address] Care Team Providers Care Propagation Manager Name Role Phone Vanessa Christian MAURI Primary Care Provider Encounter Details Date Type Department Care Team (Latest Contact Info) Description 03/12/2024 1:30 PM EDT - 03/12/2024 11:59 PM EDT Hospital Encounter XRay at [address] [place] [address] Coronary artery disease, unspecified vessel or lesion type, unspecified whether angina present, unspecified whether igiugig or transplanted heart Discharge Disposition: Home Social History Tobacco Use Types Packs/Day Years Used Date Smoking Tobacco: Former Cigarettes Smokeless Tobacco: Never Comments:Quit 15 + years ago Alcohol Use Standard Drinks/Week Comments Yes 0 (1 standard drink = 0.6 oz pur e alcohol) rare [facility] Utilities Answer Date Recorded In the past 12 months has e [employer], gas, oil, or water [employer] threatened to shut off services in your [...] type, unspecified whether angina present, unspecified whether igiugig or transplanted heart documented in this encounter Results * XR Chest PA & Lateral (Generic) (03/12/2024 1:42 PM EDT) WORKSTATION ID [id number] RAD Anatomical Region Laterality Modality Chest N/A [...] signed by: Augie Sanchez MD, [facility] ([phone]), at 03/13/2024 8:28 AM Narrative 03/13/2024 8:28 AM EDT EXAMINATION: XR CHEST PA AND LATERAL (GENERIC) CLINICAL HISTORY: s/p cabg eval effusions I25.10, Atherosclerotic heart disease of igiugig coronary artery without angina pectoris TECHNIQUE: PA [...] eval effusions I25.10, Atherosclerotic heart disease of igiugig coronary artery withoutangina pectoris TECHNIQUE: PA and [...] care director that requested your imaging first. Electronically signed by: Augie Sanchez MD, [facility]([phone]), at 03/13/2024 8:28 AM Zak Farmer MD IMG DX ORDERABLES documented in this encounter Visit Diagnoses Diagnosis Coronary artery disease, unspecified vessel or lesion type, unspecified whether angina present, unspecified whether igiugig or transplanted heart documented in this encounter Care Teams Propagation Manager Relationship Specialty Start Date End Date Vanessa Christian APRN PCP - General Family Medicine 10/21/23 05/26/24 documented as of this encounter
--- OUTSIDE RECORDS SUMMARY | 2024-07-21 10:09 | XMS_ITS | Encounter Summary ---
Author Organization [facility] Address [facility] [place] [address] Care Team Providers Care Life Skills Educator Name Role Phone Vanessa Christian MAURI Primary Care Provider [phone] Encounter Details Date Type Department Care Team [...] on filedocumented in this encounter Care Teams Life Skills Educator Relationship Specialty Start Date End Date Vanessa Christian APRN [address] [place] [address] PCP - General Family Medicine 05/27/24 documented as of this encounter
--- OUTSIDE RECORDS SUMMARY | 2024-07-21 10:09 | XMS_ITS | Clinical Summary ---
Author Organization [facility] Address [facility] [place] [address] Care Team Providers Care Cloth Painter Name Role Phone Vanessa Christian Lane DOTSON Primary Care Provider [phone] Allergies No known active allergies Medications Medication [...] meantime will refer to SHT at [facility] for further evaluation. Logistics and preliminary review of TONY were reviewed with patient. - Refer to SHT Hypertension 08/14/2023 Resolved Problems Problem Noted Date Diagnosed Date Resolved Date Nevus of face 09/26/2023 05/27/2024 Overview (09/26/2023): Right quaker Chest pressure 08/14/2023 10/21/2023 SILVA (dyspnea on exertion) 08/14/2023 HLD (hyperlipidemia) 08/14/2023 024 Encounters Date Type Department Care Team Description 05/27/2024 11:00 AM EDT Office Visit Cardiology at [address] [place] [address] Neftali Ernandez MD ASCVD (arteriosclerotic cardiovascular disease); Nonrheumatic aortic valve stenosis 05/27/2024 Travel 05/20/2024 Travel from Last 3 Months Social History Tobacco Use Types Packs/Day Years Used Date Smoking Tobacco: Former Cigarettes Smokeless Tobacco: Never Comments:Quit 15 + years ago Alcohol Use Standard Drinks/Week Comments Yes 0 (1 standard drink = 0.6 oz pur e alcohol) rare [facility] Utilities Answer Date Recorded In [...] PCV) 2024 Medical Devices Implanted Type Area Butcher Helper Device Identifier Shelf Expiration Date Model / Serial / Lot Cable,Cut,Edg ,Blnt,Ss,3tpr ([id number]) - [id number] Implanted:Qty : 1 on 02/17/2024 by Zak Farmer MD at [facility] IMPLANTS Midline: Chest [employer] - [id number] 09/02/2028 [id number] / / [id number] Valve Coronary Aortic 23mm Tissue Trnscath Biopros Inspiris ([id number]) (Autoreq) - [id number] Implanted:Qty : 1 on 02/17/2024 by Zak Farmer MD at [facility] IMPLANTS Heart [employer] - TSAI LI 09/15/2027 [id number] 23MM / [id number] / Procedures Procedure Name Priority Date/Time Associated [...] (Bezet) 367 ms MUSE SYSTEM Calculated P [place] 12 degrees MUSE SYSTEM Calculated R [place] 27 degrees MUSE SYSTEM Calculated T [place] 62 degrees MUSE SYSTEM INTERPRETATION Sinus bradycardia with 1st degree A-V block Otherwise normal ECG When compared with ECG of 12-MAR-2024 14:35, T wave inversion no longer evident in Anterior leads Confirmed by MD Ernandez Daniel ([id number]) on 06/01/2024 8:36:17 AM MUSE SYSTEM 05/27/2024 [...] Status decision made by: Patient Care Teams Cloth Painter Relationship Specialty Start Date End Date Vanessa Christian APRN [address] [place] [address] PCP - General Family Medicine 05/27/24
--- OUTSIDE RECORDS SUMMARY | 2024-07-21 10:09 | XMS_ITS | Encounter Summary ---
Author Organization [facility] Address [facility] [place] [address] Care Team Providers Care Port Captain Name Role Phone Gino Vanessa Lane DOTSON Primary Care Provider [phone] Encounter Details Date Type Department Care Team (Late st Contact Info) Description 02/24/2024 Orders Only Cardiac Surgery [facility] [place] [phone] Trudi Lester APRN [facility] [place] [address] Social History Tobacco Use Types Packs/Day Years Used Date Smoking Tobacco: Former Cigarettes Smokeless Tobacco: Never Comments:Quit 15 + years ago Alcohol Use Standard Drinks/Week Comments Yes 0 (1 standard drink = 0.6 oz pur e alcohol) rare [facility] Utilities Answer Date Recorded In the past 12 months has e [employer], gas, oil, or water [employer] threatened to shut off services in your [...] on filedocumented in this encounter Care Teams Port Captain Relationship Specialty Start Date End Date Vanessa Christian APRN PCP - General Family Medicine 10/21/23 05/26/24 documented as of this encounter
--- OUTSIDE RECORDS SUMMARY | 2024-07-21 10:09 | XMS_ITS | Referral Summary ---
Author Organization [facility] Address [address] [place] [address] Care Team Providers Care Nuclear Test Technician Name Role Phone Filidayna Vanessa Sherman NP Primary Care Provider [phone] Social History Tobacco Use Types Packs/Day Years Used Date Smoking Tobacco: Never Assessed Sex and Gender Information Value Date Recorded Sex Assigned at Not on file Gender Identity Not on file Sexual Orientation Not on file Plan of Treatment Not on file Care Teams Nuclear Test Technician Relationship Specialty Start Date End Date Vanessa Christian NP [address] [place] [address] PCP - General Family Medicine - Primary Care 10/07/23
--- OUTSIDE RECORDS SUMMARY | 2024-07-21 10:10 | XMS_ITS | Encounter Summary ---
Author Organization [facility] Address [facility] [place] [address] Care Team Providers Care Charger Operator Name Role Phone Vanessa Christian MAURI Primary Care Provider [phone] Reason for Visit * Consultation (Routine) - Closed Specialty Diagnoses / Procedures Referred By Contac t Referred To Contact Cardiac Surgery Diagnoses Nonrheumatic aortic valve stenosis significant - TAVR ( defers to Card Surg d/t age) Neftali Ernandez MD [facility] [place] [address] Zak Farmer MD [facility] [place] [address] Referral ID Status Reason Start Date Expiration Date V isits Requested Visits Authorized [id number] Closed Consult, Test & Treat 10/21/2023 10/20/2024 1 1 Encounter Details Date Type Department Care Team (Late st Contact Info) Description 01/09/2024 1:40 PM EDT Office Visit [place] [address] Zak Farmer MD [facility] [place] [address] Nonrheumatic aortic valve stenosis Social [...] - 01/09/2024 1:40 PM EDT To: MD Vnaessa Coles APRN Re; Karlos Santa ( 1960) [...] office. Best personal regards, Zak Farmer MD [phone] In aggregate 55 minutes were spent evaluating [...] questions please contact the health intensive care specialist that requested your imaging first. [...] have questions please contactthe health intensive care specialist that requested your imaging first. Zak Farmer MD IMG DX ORDERABLES * Basic Metabolic Panel (non-fasting) (01/09/2024 2:58 PM EDT) Glucose 102 65 - 199 mg/dL [facility] Comment:Diabetes: >=200 mg/d L plus symptoms Blood Urea Nitrogen 15 10 - 20 mg/dL [facility] Creatinine 0.94 0.80 - 1.50 mg/dL [facility] Sodium 137 135 - 145 mmol/L [facility] Potassium 4.5 3.5 - 5.0 mmol/L [facility] Comment: Please note: ??Patients with WBC >100,000 may have falsely elevated Potassium levels. ??For accurate Potassium quantification in these patients send serum separator tube (gold top) for subsequent determinations. ??Contact the Clinical Chemistry Laboratory if there are any questions. Chloride 103 98 - 107 mmol/L [facility] Carbon Dioxide 27 22 - 31 mmol/L [facility] Anion Gap 7 5 - 15 mmol/L [facility] Calcium 9.5 8.5 - 10.5 mg/dL [facility] Est Glomerular Filtration Rate 91 >=60 mL/min/1. 73 m?? [facility] [...] Zak Farmer MD CHEMISTRY ORDERABLE S [facility] [place] [address] * Hepatic Function Panel (01/09/2024 2:58 PM EDT) Protein, Total 6.7 6.1 - 8.0 g/dL [facility] Albumin 4.5 3.2 - 5.2 g/dL [facility] Aspartate Aminotransferase 21 0 - 39 unit/L [facility] Alanine Aminotransferase 21 0 - 55 unit/L [facility] Alkaline Phosphatase 81 40 - 130 unit/L [facility] Bilirubin, Total 0.7 0.2 - 1.3 mg/dL [facility] Bilirubin, Direct 0.2 0.0 - 0.3 mg/dL [facility] Blood 01/09/2024 2:58 PM EDT 01/09/2024 3:03 PM EDT Narrative Resulting Agency Comment Spec In Lab Zak Farmer MD CHEMISTRY ORDERABLE S Performing Organization Address [facility] Co de Phone Number [facility] [place] [address] * Prothrombin Time (01/09/2024 2:58 PM EDT) Prothrombin Time 10.6 9.4 - 12.5 sec [facility] International Normalization Ratio 0.9 [facility] Comment: An INR <2.0 indicates [...] MD HEMATOLOGY ORDERABL ES Performing Organization Address [facility] Co de Phone Number [facility] [place] [address] * Type and Screen Future Surgery, [facility] SAME DAY PROGRAM ONLY) (01/09/2024 2:58 PM EDT) ABORH Type O NEGATIVE [facility] Patient BB History Not Found [facility] Expires at [id number] on: 02-20-2024 [facility] Ab Screen Interp Negative [facility] Blood 01/09/2024 2:58 PM EDT 01/09/2024 2:58 PM EDT Narrative Resulting Agency Comment Spec In Lab Zak Farmer MD BLOOD BANK LAB ORDE ASH Performing Organization Address City/State/[facility] Co de Phone Number [facility] [place] [address] documented in this encounter Visit Diagnoses Diagnosis Nonrheumatic aortic valve stenosis Aortic valve disorders Nonrheumatic aortic valve stenosis Aortic valve disorders documented in this encounter Care Teams Charger Operator Relationship Specialty Start Date End Date Vanessa Crhistian, FLOOR SERVICE WORKER SPRING PCP - General Family Medicine 10/21/23 05/26/24 documented as of this encounter
--- OUTSIDE RECORDS SUMMARY | 2024-07-21 10:10 | XMS_ITS | Encounter Summary ---
Author Organization [facility] [place] [address] Care Team Providers Care Surgery Tech Name Role Phone Vanessa Christian APRN Primary Care Provider [phone] Encounter Details Date Type Department Care Team [...] on filedocumented in this encounter Care Teams Surgery Tech Relationship Specialty Start Date End Date Vanessa Christian APRN PCP - General Family Medicine 10/21/23 05/26/24 documented as of this encounter
--- OUTSIDE RECORDS SUMMARY | 2024-07-21 10:10 | XMS_ITS | Encounter Summary ---
Author Organization [facility] [place] [address] Care Team Providers Care Oil Field Rig Builder Name Role Phone Vanessa Christian APRN Primary Care Provider [phone] Encounter Details Date Type Department Care Team (Late st Contact Info) Description 10/21/2023 Abstract Cardiology at [address] [place] [phone] Adam Mayes RN Social History Tobacco Use [...] filedocumented in this encounter Care Teams Oil Field Rig Builder Relationship Specialty Start Date End Date Vanessa Christian APRN PCP - General Family Medicine 10/21/23 05/26/24 documented as of this encounter
--- OUTSIDE RECORDS SUMMARY | 2024-07-21 10:10 | XMS_ITS | Encounter Summary ---
Author Organization [facility] Address [facility] [place] [address] Care Team Providers Care Catering Associate Name Role Phone Vanessa Christian ANIMATION CAMERA OPERATOR Primary Care Provider Reason for Referral * Diagnostic Test (Routine) - Closed Specialty Diagnoses / Procedures Referred By Contac t Referred To Contact Radiology Diagnoses Nonrheumatic aortic valve stenosis Procedures CT Chest wo Contrast (Generic) Louisa Reid PA [facility] CARDIOTHORACIC [place] [address] [facility] [place] [address] Referral ID Status Reason Start Date Expiration Date V isits Requested Visits Authorized [id number] Closed Specialty Service Requested 01/10/2024 07/11/2025 1 1 Encounter Details Date Type Department Care Team (Late st Contact Info) Description 01/09/2024 Orders [place] [address] Zak Farmer MD [facility] CARDIOTHORACIC [place] [address] Nonrheumatic aortic valve stenosis Social History Tobacco [...] wo Contrast (Generic) (02/03/2024 7:44 AM EDT) [employer] WORKSTATION ID [id number] RAD Anatomical Region Laterality Modality Chest Computed [...] questions please contact the health long term acute care registered nurse that requested your imaging first. ? [...] have questions please contactthe health long term acute care registered nurse that requested your imaging first. Zak Farmer MD IMG CT ORDERABLES documented in this encounter Visit Diagnoses Diagnosis Nonrheumatic aortic valve stenosis Aortic valve disorders Nonrheumatic aortic valve stenosis Aortic valve disorders documented in this encounter Care Teams Catering Associate Relationship Specialty Start Date End Date Vanessa Christian APRN PCP - General Family Medicine 10/21/23 05/26/24 documented as of this encounter
--- OUTSIDE RECORDS SUMMARY | 2024-07-21 10:10 | XMS_ITS | Encounter Summary ---
Author Organization [facility] [place] [address] Care Team Providers Care Coiled Tubing Operator Name Role Phone Vanessa Christian Lane DOTSON Primary Care Provider [phone] Encounter Details Date Type Department Care Team (Late st Contact Info) Description 01/09/2024 2:30 PM EDT Clinical Support Same Day at [facility] [place] [phone] Social History Tobacco Use Types Packs/Day Years Used Date Smoking Tobacco: Former Cigarettes Smokeless Tobacco: Never Comments:Quit 15 + years ago Alcohol Use Standard Drinks/Week Comments Yes 0 (1 standard drink = 0.6 oz pur e alcohol) rare [facility] Inpatient Questions Answer Date Recorded Prevent [...] for a video about [facility] cardiac surgery. Instructed [...] type and screen performed while in the [facility]. Sent to Radiology for chest x-ray. Special medication instructions: None Procedure date: not booked. Darian documented in this encounter Plan of Treatment Not on file documented as of this encounter Visit Diagnoses Not on filedocumented in this encounter Care Teams Coiled Tubing Operator Relationship Specialty Start Date End Date Vanessa Christian APRN PCP - General Family Medicine 10/21/23 05/26/24 documented as of this encounter
--- OUTSIDE RECORDS SUMMARY | 2024-07-21 10:10 | XMS_ITS | Encounter Summary ---
Author Organization [facility] Address [facility] [place] [address] Care Team Providers Care Director Wholesale Name Role Phone Vanessa Christian MAURI Primary Care Provider Encounter Details Date Type Department Care Team (Late st Contact Info) Description 02/14/2024 Orders [place] [phone] Zak Farmer MD [facility] DR [place] [address] Coronary artery disease, unspecified vessel or lesion type, unspecified whether angina present, unspecified whether zuni or transplanted heart (Primary Dx) Social History [...] (Bezet) 401 ms MUSE SYSTEM Calculated P [place] -12 degrees MUSE SYSTEM Calculated R [place] 24 degrees MUSE SYSTEM Calculated T [place] 74 degrees MUSE SYSTEM INTERPRETATION Sinus bradycardia T wave abnormality, consider anterior ischemia Abnormal ECG When compared with ECG of 17-FEB-2024 13:24, [place] interval has decreased T wave inversion now evident in Anterior leads Confirmed by Paul Guzman ([id number]) on 03/15/2024 8:36:23 AM MUSE SYSTEM 03/12/2024 2:35 PM EDT 03/15/2024 8:36 AM EDT Zak Farmer MD ECG ORDERABLES MUSE SYSTEM * XR Chest PA & Lateral (Generic) (03/12/2024 1:42 PM EDT) Pathologist [facility] WORKSTATION ID [id number] [facility] Anatomical Region Laterality Modality Chest N/A [...] have questions please contact the health care administrative tech that requested your imaging first. ? Narrative [...] who have questions please contactthe health care administrative tech that requested your imaging first. Zak Farmer MD IMG DX ORDERABLES documented in this encounter Visit Diagnoses Diagnosis Coronary artery disease, unspecified vessel or lesion type, unspecified whether angina present, unspecified whether zuni or transplanted heart- Primary Coronary artery disease, unspecified vessel or lesion type, unspecified whether angina present, unspecified whether zuni or transplanted heart documented in this encounter Care Teams Director Wholesale Relationship Specialty Start Date End Date Vanessa Christian APRN PCP - General Family Medicine 10/21/23 05/26/24 documented as of this encounter
--- OUTSIDE RECORDS SUMMARY | 2024-07-21 10:10 | XMS_ITS | Encounter Summary ---
Author Organization [facility] [place] [address] Care Team Providers Care Cokeman Name Role Phone Vanessa Christian Lane DOTSON Primary Care Provider [phone] Encounter Details Date Type Department Care Team (Latest Contact Info) Description 01/09/2024 3:00 PM EDT Laboratory [place]ment [place] [phone] Nonrheumatic aortic valve stenosis Social History Tobacco Use Types Packs/Day Years Used Date Smoking Tobacco: Former Cigarettes Smokeless Tobacco: Never Comments:Quit 15 + years ago Alcohol Use Standard Drinks/Week Comments Yes 0 (1 standard drink = 0.6 oz pur e alcohol) rare [facility] Inpatient Questions Answer Date [...] Recheck Status (01/09/2024 2:58 PM EDT) Pathologist [facility] Emergency Department ABORH Recheck Order Order Placed [facility] ABORH Type Recheck Completed [facility] Blood 01/09/2024 2:58 PM EDT 01/09/2024 3:08 PM EDT Narrative Resulting Agency Comment Spec In Lab Zak Farmer MD BLOOD BANK LAB ORDE ASH [facility] [place] [address] * Differential, Automated (01/09/2024 2:58 PM EDT) Neutrophil % 70.5 % [facility] Neutrophil Absolute 4.34 1.70 - 6.10 x10(3)/[facility] Lymph % 18.9 % [facility] Lymphocytes Abs 1.2 0.9 - 3.2 x10(3)/[facility] Monocyte % 8.0 % [facility] Monocyte Abs 0.5 0.3 - 0.9 x10(3)/[facility] Eos % 1.6 % [facility] Eosinophils Abs 0.1 0.0 - 0.4 x10(3)/[facility] Basophil % 0.5 % [facility] Baso Absolute 0.0 0.0 - 0.1 x10(3)/[facility] Immature Gran % 0.50 % [facility] Comment: Immature granulocytes(IG's)percentage and absolute count will include metamyelocytes, myelocytes, and promyelocytes. Blood smears from CBCs yielding IG's will be scanned manually for concordance. If this scan disagrees with the automated IG or if promyelocytes are noted, a manual differential will be performed. Immature Gran Absolute 0.03 0.00 - 0.04 x10(3)/[facility] Blood 01/09/2024 2:58 PM EDT 01/09/2024 3:03 PM EDT Narrative Resulting Agency Comment Spec In Lab Zak Farmer MD HEMATOLOGY ORDERABL ES [facility] [place] [address] * Hemogram (01/09/2024 2:58 PM EDT) White Blood Cell 6.2 4.0 - 9.5 x10(3)/[facility] Red Blood Cell 5.53 4.58 - 5.54 x10(6)/[facility] Hemoglobin 16.1 13.7 - 16.5 g/dL [facility] Hematocrit 46.9 40.5 - 48.5 % [facility] Mean Cell Volume 84.8 82.9 - 93.1 fL [facility] Mean Cell Hemoglobin 29.1 27.5 - 32.1 pg [facility] Mean Cell Hemoglobin Concentration 34.3 32.0 - 35.7 g/dL [facility] Platelet 187 145 - 357 x10(3)/[facility] RDW Standard Deviation 39.2 36.0 - 45.0 [facility] RDW coefficient of variation 12.6 11.4 - 13.8 % [facility] Mean Platelet Volume 9.5 7.6 - 12.9 [facility] NRBC% auto 0.0 % [facility] NRBC Absolute 0.000 0.000 - 0.000 x10(3)/[facility] Blood 01/09/2024 2:58 PM EDT 01/09/2024 3:03 PM EDT Narrative Resulting Agency Comment Spec In Lab Zak Farmer MD HEMATOLOGY ORDERABL ES [facility] [place] [address] * Basic Metabolic Panel (non-fasting) (01/09/2024 2:58 PM EDT) Glucose 102 65 - 199 mg/dL [facility] Comment:Diabetes: >=200 mg/d L plus symptoms Blood Urea Nitrogen 15 10 - 20 mg/dL [facility] Carbon Dioxide 27 22 - 31 mmol/L [facility] Anion Gap 7 5 - 15 mmol/L [facility] Calcium 9.5 8.5 - 10.5 mg/dL [facility] Est Glomerular Filtration Rate 91 >=60 mL/min/1. 73 m?? [facility] [...] MD CHEMISTRY ORDERABLE S Performing Organization Address [facility] Co de Phone Number [facility] [place] [address] * Hepatic Function Panel (01/09/2024 2:58 PM EDT) Protein, Total 6.7 6.1 - 8.0 g/dL [facility] Albumin 4.5 3.2 - 5.2 g/dL [facility] Aspartate Aminotransferase 21 0 - 39 unit/L [facility] Alanine Aminotransferase 21 0 - 55 unit/L [facility] Alkaline Phosphatase 81 40 - 130 unit/L [facility] Bilirubin, Total 0.7 0.2 - 1.3 mg/dL [facility] Bilirubin, Direct 0.2 0.0 - 0.3 mg/dL [facility] Blood 01/09/2024 2:58 PM EDT 01/09/2024 3:03 PM EDT Narrative Resulting Agency Comment Spec In Lab Zak Farmer MD CHEMISTRY ORDERABLE S Performing Organization Address [facility] Co de Phone Number [facility] [place] [address] * Prothrombin Time (01/09/2024 2:58 PM EDT) Prothrombin Time 10.6 9.4 - 12.5 sec [facility] International Normalization Ratio 0.9 [facility] Comment: An INR <2.0 [...] Organization Address City/[facility]/ZIP Co de Phone Number [facility] [place] [address] * Type and Screen Future Surgery, [facility] ONLY) (01/09/2024 2:58 PM EDT) ABORH Type O NEGATIVE [facility] Patient BB History Not Found [facility] Expires at [id number] on: 02-20-2024 [facility] Ab Screen Interp Negative [facility] Blood 01/09/2024 2:58 PM EDT 01/09/2024 2:58 PM EDT Narrative Resulting Agency Comment Spec In Lab Zak Farmer MD BLOOD BANK LAB ORDE RABLES [facility] [place] [address] documented in this encounter Visit Diagnoses Diagnosis Nonrheumatic aortic valve stenosis Aortic valve disorders documented in this encounter Care Teams Cokeman Relationship Specialty Start Date End Date Vanessa Christian APRN PCP - General Family Medicine 1/15/24 8/20/24 documented as of this encounter
--- OUTSIDE RECORDS SUMMARY | 2024-07-21 10:10 | XMS_ITS | Encounter Summary ---
Author Organization [facility] Address [facility] [place] [address] Care Team Providers Care Dragline Oiler Name Role Phone Vanessa Christian MAURI Primary Care Provider [phone] Encounter Details Date Type Department Care Team (Latest Contact Info) Description 01/09/2024 3:02 PM EDT - 01/09/2024 11:59 PM EDT Hospital Encounter XRay at [address] [place] [address] Zak Farmer MD [facility] [place] [address] Nonrheumatic aortic valve stenosis Discharge Disposition: Home [...] please contact the health home health care social worker that requested your imaging first. ? Electronically signed by: Toby Dave MD, [facility] ([phone]), at 01/09/2024 3:11 PM Narrative 01/09/2024 3:11 [...] questions please contactthe health home health care social worker that requested your imaging first. Electronically signed by: Toby Dave MD, [facility]([phone]), at 01/09/2024 3:11 PM Zak Farmer MD IMG DX ORDERABLES documented in this encounter Visit Diagnoses Diagnosis Nonrheumatic aortic valve stenosis Aortic valve disorders documented in this encounter Care Teams Dragline Oiler Relationship Specialty Start Date End Date Vanessa Christian APRN PCP - General Family Medicine 10/21/23 05/26/24 documented as of this encounter
--- OUTSIDE RECORDS SUMMARY | 2024-07-21 10:10 | XMS_ITS | Encounter Summary ---
Author Organization [facility] [address] Care Team Providers Care Liquid Loader Name Role Phone Vanessa Christian APRN Primary Care Provider [phone] Encounter Details Date Type Department Care Team [...] on filedocumented in this encounter Care Teams Liquid Loader Relationship Specialty Start Date End Date Vanessa Christian APRN PCP - General Family Medicine 10/21/23 05/26/24 documented as of this encounter
--- OUTSIDE RECORDS SUMMARY | 2024-07-21 10:10 | XMS_ITS | Encounter Summary ---
[place] [address] Care Team Providers Care Supervisor Fruit Grading Name Role Phone Vanessa Christian MAURI Primary Care Provider [phone] Reason for Visit * Auth/Cert (Routine) Specialty [...] W RHC (WRVU 5.9) Rima Dickinson MD [facility] [place] [address] [facility] Referral ID Status Reason Start Date Expiration Date Visits Re quested Visits Authorized [id number] 1 1 Encounter Details Date Type Department Care Team (Late st Contact Info) Description 02/03/2024 10:00 AM EDT - 02/03/2024 11:00 AM EDT [place] [address] Saira Lua MD CARDIAC CATHETERIZATION Social History Tobacco Use Types [...] lbs Follow-up Visits Follow up with your security incident response engineer in 2-4 weeks Access Site 'Black and Blue' and tenderness is expected during the first week Call if you noted a mass (lump) greater than the size of a ellis Call Office with any Questions and if you have any of the following Clarence Lane M.D Interventional Meal Temperer Power Line Installer #: [phone] * Attachments The following attachments cannot be sent through Care Everywhere. * CAD (Coronary Artery Disease): General Info ([place]) * Coronary Angiogram: Post-op ([place]) documented in this encounter Medications at Time [...] Lane MD - 02/03/2024 11:[address] [facility] Interventional Cardiology Adult Pre-Procedure H&P Update: Cardiac Catheterization Karlos Anthony [id number] 1960 Chief Complaint: Aortic stenosis HPI: Mr. [...] is inthe chart Clarence Lane MD Interventional Meal Temperer 02/03/24 11:48 AM documented in this encounter Miscellaneous Notes * Brief Op Note - Clarence Lane MD - 02/03/2024 12:51 PM EDT Preliminary Cardiac Catheterization Procedure Note: Patient Name: Karlos Anthony : [id number] MR#: [id number] Case Date: 02/03/2024 Power Line Installer: Surgeon(s) and Role: * Saira Lua MD [...] Modality Other Narrative 02/12/2024 3:47 PM EDT ?[facility] ? Cardiac Catheterization/Intervention Report ? Patient Name: Patenaude, Karlos ? Procedure Date: 02/03/2024 ? A #: [id number] ? Primary Physician: Mogadam, Emad ? Case #: [id number] ? File Name: [id number] ? Catheterization Order Number: [id number] ? [facility] ? Final Report [place], [place] ? Patient Name: ? Karlos Patenaude ? ID#: ?[id number] ? : ?1960 ? Procedure Date: ? February 03, 2024 ? Case #: ? [id number] ? Room: ? 5 ? Case Physician: ? Emad Florian Lua. ? Start: ?12:29 ?Fellow: ? Clarence Lane M.D. ? Admission: ??02/03/2024 ? Referring Physician: [...] Procedure Note Saira Lua MD - 02/12/2024 [facility] Cardiac Catheterization/Intervention Report Patient Name: Karlos Anthony Procedure Date: 02/03/2024 A #: [id number] Primary Physician: Saira Lua Case #: [id number] File Name: [id number] Catheterization Order Number: [id number] [facility] FinalReport [place], [place] Patient Name: Karlos Anthony ID#:[id number] :1960 Procedure Date: February 03, 2024 Case [...] (Bezet) 372 ms MUSE SYSTEM Calculated P [place] 59 degrees MUSE SYSTEM Calculated R [place] 34 degrees MUSE SYSTEM Calculated T [place] 63 degrees MUSE SYSTEM INTERPRETATION Sinus bradycardia [...] documented in this encounter Care Teams Supervisor Fruit Grading Relationship Specialty Start Date End Date Vanessa Christian APRN PCP - General Family Medicine 10/21/23 05/26/24 documented as of this encounter
--- OUTSIDE RECORDS SUMMARY | 2024-07-21 10:10 | XMS_ITS | Encounter Summary ---
Author Organization [facility] [place] [address] Care Team Providers Care Detective Private Eye Name Role Phone Vanessa Christian APRN Primary Care Provider [phone] Encounter Details Date Type Department Care Team (Late st Contact Info) Description 12/26/2023 Notes Only Cardiology at [address] [place] [address] Neftali Ernandez MD [facility] [place] [address] Social History Tobacco Use Types Packs/Day Years [...] EDT Echocardiogram images reviewed from [facility]. Indeed, the aortic valve appears severely stenotic. Cannotrule out bicuspid valve documented in this encounter Plan of Treatment Not on file documented as of this encounter Visit Diagnoses Not on filedocumented in this encounter Care Teams Detective Private Eye Relationship Specialty Start Date End Date Vanessa Christian APRN PCP - General Family Medicine 10/21/23 05/26/24 documented as of this encounter
--- OUTSIDE RECORDS SUMMARY | 2024-07-21 10:10 | XMS_ITS | Encounter Summary ---
Author Organization [facility] [place] [address] Care Team Providers Care Manager Math Name Role Phone Vanessa Christian APRN Primary Care Provider [phone] Encounter Details Date Type Department Care Team [...] filedocumented in this encounter Care Teams Manager Math Relationship Specialty Start Date End Date Vanessa Christian APRN PCP - General Family Medicine 10/21/23 05/26/24 documented as of this encounter
--- OUTSIDE RECORDS SUMMARY | 2024-07-21 10:10 | XMS_ITS | Encounter Summary ---
Author Organization [facility] Address [facility] Ivana linareseileen [place] [id number] Care Team Providers Care Typer Name Role Phone Vanessa Christian MAURI Primary Care Provider [phone] Reason for Referral * Consultation (Routine) - Closed Specialty Diagnoses / Procedures Referred By Contac t Referred To Contact Cardiac Surgery Diagnoses Nonrheumatic aortic valve stenosis significant - TAVR ( defers to Card Surg d/t age) Errol Loya MD [facility] [place] [address] Zak Farmer MD [facility] CARDIOTHORACIC [place] [address] Referral ID Status Reason Start Date Expiration Date V isits Requested Visits Authorized [id number] Closed Consult, Test & Treat 10/21/2023 10/20/2024 1 1 Reason for Visit * Reason Comments Chest Pain Shortness of Breath Aortic Stenosis Encounter Details Date Type Department Care Team (Late st Contact Info) Description 10/21/2023 1:20 PM EST Office Visit Cardiology at [address] [address] Errol Loya MD [facility] [place] [address] Nonrheumatic aortic valve stenosis Social History Tobacco [...] Problem List Diagnosis Aortic stenosis 12/2022 TTE ([facility]): VITA 0.8-0.9 cm2 (MG 28 mmHg, DOI 3.6 m/s, SVI 35 cc/m2). Trace regurgitation. Normal bi-v s/f, no other valve findings Gastroesophageal reflux Nevus of face Right taoist Hypertension HLD (hyperlipidemia) MEDICATIONS: Current Outpatient Medications [...] the meantime will refer to T at [facility] for further evaluation. [...] the meantime will refer to T at [facility] for further evaluation. [...] disorders documented in this encounter Care Teams Typer Relationship Specialty Start Date End Date Vanessa Christian APRN PCP - General Family Medicine 10/21/23 05/26/24 documented as of this encounter
--- OUTSIDE RECORDS SUMMARY | 2024-07-21 10:10 | XMS_ITS | Encounter Summary ---
Author Organization [facility] [place] [address] Care Team Providers Care Waiter/Waitress Bar Name Role Phone Vanessa Christian MAURI Primary Care Provider [phone] Reason for Visit * Auth/Cert (Routine) Specialty [...] W RHC (WRVU 5.9) Rima Dickinson MD [facility] [place] [address] [facility] Referral ID Status Reason Start Date Expiration Date Visits Re quested Visits Authorized [id number] 1 1 Encounter Details Date Type Department Care Team (Latest Contact Info) Description 02/03/2024 8:06 AM EDT - 02/03/2024 2:54 PM EDT Hospital Encounter [place] [address] Rima Dickinson MD [facility] [place] [address] Screening for cardiovascular condition; Aortic valve stenosis, [...] lbs Follow-up Visits Follow up with your feed handler in 2-4 weeks Access Site 'Black and Blue' and tenderness is expected during the first week Call if you noted a mass (lump) greater than the size of a ellis Call Office with any Questions and if you have any of the following Clarence Lane M.D Interventional Agricultural Sales Representative Core Laying Machine Operator #: [phone] * Attachments The following attachments cannot be sent through Care Everywhere. * CAD (Coronary Artery Disease): General Info (Kyr[place]z) * Coronary Angiogram: Post-op ([place]yrgyz) documented in this encounter Medications at Time [...] Lane MD - 02/03/2024 11:48 AM EDT [facility] Interventional Cardiology Adult Pre-Procedure H&P Update: Cardiac Catheterization Karlos Anthony [id number] 1960 Chief Complaint: Aortic stenosis HPI: Mr. [...] is inthe chart Clarence Lane MD Interventional Agricultural Sales Representative 02/03/24 11:48 AM documented in this encounter Miscellaneous Notes * Brief Op Note - Clarence Lane MD - 02/03/2024 12:51 PM EDT Preliminary Cardiac Catheterization Procedure Note: Patient Name: Karlos Anthony : [id number] MR#: [id number] Case Date: 02/03/2024 Core Laying Machine Operator: Surgeon(s) and Role: * Saira [...] 02/12/2024 3:47 PM EDT ?[facility] ? Cardiac Catheterization/Intervention Report ? Patient Name: Patenaude, Karlos ? Procedure Date: 02/03/2024 ? A #: [id number] ? Primary Physician: Mogadam, Emad ? Case #: [id number] ? File Name: [id number] ? Catheterization Order Number: [id number] ? [facility] ? Final Report [place], [place] ? Patient Name: ? Karlos Anthony ? ID#: ?[id number] ? : ?1960 ? Procedure Date: ? [...] Lua MD - 02/12/2024 [facility] Cardiac Catheterization/Intervention Report Patient Name: Karlos Anthony Procedure Date: 02/03/2024 A #: [id number] Primary Physician: Saira Lua Case #: [id number] File Name: [id number] Catheterization Order Number: [id number] [facility] FinalReport [place], [place] Patient Name: Karlos Anthony ID#:[id number] :1960 Procedure Date: February 03, 2024 Case [...] was designated as ASA Class III. The [facility] clinical frailty scale is 3: [...] (Bezet) 372 ms MUSE SYSTEM Calculated P [place] 59 degrees MUSE SYSTEM Calculated R [place] 34 degrees MUSE SYSTEM Calculated T [place] 63 degrees MUSE SYSTEM INTERPRETATION Sinus bradycardia [...] MD) documented in this encounter Care Teams Waiter/Waitress Bar Relationship Specialty Start Date End Date Vanessa Christian APRN PCP - General Family Medicine 10/21/23 05/26/24 documented as of this encounter
--- OUTSIDE RECORDS SUMMARY | 2024-07-21 10:10 | XMS_ITS | Encounter Summary ---
Author Organization [facility] [address] Care Team Providers Care Enrollment Processor Name Role Phone Vanessa Christian APRN Primary Care Provider [phone] Encounter Details Date Type Department Care Team (Late st Contact Info) Description 10/21/2023 Abstract Cardiology at [address] [place] [address] Adam Mayes RN Social History Tobacco Use [...] on filedocumented in this encounter Care Teams Enrollment Processor Relationship Specialty Start Date End Date Vanessa Christian APRN PCP - General Family Medicine 10/21/23 05/26/24 documented as of this encounter
--- OUTSIDE RECORDS SUMMARY | 2024-07-21 10:10 | XMS_ITS | Encounter Summary ---
Author Organization [facility] [place] [address] Care Team Providers Care Circus Laborer Name Role Phone Vanessa Christian Lane DOTSON Primary Care Provider [phone] Reason for Referral * Diagnostic Test (Routine) - Closed Specialty Diagnoses / Procedures Referred By Contac t Referred To Contact Radiology Diagnoses Nonrheumatic aortic valve stenosis Procedures CT Chest wo Contrast (Generic) Louisa Cho PA [facility] [place] [address] [facility] [place] [address] Referral ID Status Reason Start Date Expiration Date V isits Requested Visits Authorized [id number] Closed Specialty Service Requested 01/10/2024 07/11/2025 1 1 Reason for Visit * Diagnostic Test (Routine) - Closed Specialty Diagnoses / Procedures Referred By Contac t Referred To Contact Radiology Diagnoses Nonrheumatic aortic valve stenosis Procedures CT Chest wo Contrast (Generic) Louisa Cho PA [facility] [place] [address] [facility] [place] [address] Referral ID Status Reason Start Date Expiration Date V isits Requested Visits Authorized [id number] Closed Specialty Service Requested 01/10/2024 07/11/2025 1 1 Encounter Details Date Type Department Care Team (Latest Contact Info) Description 02/03/2024 7:36 AM EDT - 02/03/2024 8:05 AM EDT Hospital En[facility] [place] [address] Zak Farmer MD [facility] [place] [address] Nonrheumatic aortic valve stenosis Discharge Disposition: Home Social History Tobacco Use Types Packs/Day Years Used Date Smoking Tobacco: Former Cigarettes Smokeless Tobacco: Never Comments:Quit 15 + years ago Alcohol Use Standard Drinks/Week Comments Yes 0 (1 standard drink = 0.6 oz pur e alcohol) rare [facility] Inpatient Questions Answer Date Recorded Does [...] wo Contrast (Generic) (02/03/2024 7:44 AM EDT) Sols Signature WORKSTATION ID [id number] RAD Anatomical Region Laterality Modality Chest Computed [...] ? Electronically signed by: Rogerio Wright MD, [facility] ([phone]), at 02/03/2024 10:00 AM Narrative 02/03/2024 10:00 [...] nodule along the minor fissure (series 302 [id number]) and a 8 mm right lower lobe [...] nurse practitioner that requested your imaging first. Electronically signed by: Rogerio Wright MD, [facility]([phone]), at 02/03/2024 10:00 AM Zak Farmer MD IMG CT ORDERABLES documented in this encounter Visit Diagnoses Diagnosis Nonrheumatic aortic valve stenosis Aortic valve disorders documented in this encounter Care Teams Circus Laborer Relationship Specialty Start Date End Date Vanessa Christian APRN PCP - General Family Medicine 10/21/23 05/26/24 documented as of this encounter
--- OUTSIDE RECORDS SUMMARY | 2024-07-21 10:10 | XMS_ITS | Encounter Summary ---
Author Organization [facility] [place] [address] Care Team Providers Care General Labor Forklift Operator Name Role Phone Vanessa Christian APRN Primary Care Provider [phone] Encounter Details Date Type Department Care Team (Late st Contact Info) Description 01/10/2024 Orders [place] [id number] Lawson Napoles PA [facility] [place] [place] [address] Screening for cardiovascular condition; Aortic valve stenosis, [...] unspecified documented in this encounter Care Teams General Labor Forklift Operator Relationship Specialty Start Date End Date Vanessa Christian APRN PCP - General Family Medicine 10/21/23 05/26/24 documented as of this encounter
--- OUTSIDE RECORDS SUMMARY | 2024-07-21 10:10 | XMS_ITS | Encounter Summary ---
Author Organization [facility] [place] [address] Care Team Providers Care Abap Developer Name Role Phone Aparna Jordan MAURI Primary Care Provider [phone] Reason for Visit * Auth/Cert (Routine) Specialty [...] ARTERIAL GRAFT (WRVU 7.93) Hayder Graham MD [facility] [place] [address] [facility] Referral ID Status Reason Start Date Expiration Date Visits Re quested Visits Authorized [id number] 1 1 Encounter Details Date Type Department Care Team (Late st Contact Info) Description 02/17/2024 7:30 AM EDT - 02/17/2024 1:26 PM EDT Surgery [place] [id number] Hayder Graham MD [facility] [place] [address] ENDOSCOPIC HARVEST VEIN(S) FOR CABG (WRVU 0.31) Social History Tobacco Use Types Packs/Day Years Used Date Smoking Tobacco: Former Cigarettes Smokeless Tobacco: Never Comments:Quit 15 + years ago Alcohol Use Standard Drinks/Week Comments Yes 0 (1 standard drink = 0.6 oz pur e alcohol) rare [facility] Utilities Answer Date Recorded In [...] No 02/18/2024 Housing Stability Vital Sign Answer Manfrde e Recorded Unable to Pay for Housing [...] 1-2 weeks. Patient to follow up with Community Center Coordinator, Neftali Ernandez MD , in 2 weeks. Patient to follow up with Cardiac Surgeon, Dr. Hayder Graham, with a chest x-ray, EKG, and Echo. Inpatient Provider Contact Information: [facility] Section of Cardiac Surgery [facility] [address] FAX [phone] Discharge Diagnoses (Hospital Problems) Primary Diagnoses: /CAD [...] insufficiency. He has glaucoma. He used to bacLynk until about 15 years ago. He has [...] Hayder Graham and/or the Cardiac Surgery Physician Repair Department Manager Team may be reached at . [...] Please refer to the card with the [place] Heart Association Guidelines for more information. You [...] Dr. Hayder Graham. You may use a [place] Track or treadmill but avoid any pulling [...] friends, go to a movie, go to restorationism, etc. Heavy activities: No hunting, skiing, jogging, [...] should resume a low fat, low cholesterol, [place] Heart Association Diet. Driving: No driving until [...] while being managed by your PCP and/or Community Center Coordinator. For future medication refills, please refer to your PCP and/or Community Center Coordinator after your discharge from our service. Thank you REMOVE CHEST TUBE SUTURES ON OR AFTER 03/02/24 Home oxygen therapy: N/A Follow up appointments: You should follow up with your PCP, Aparna Jordan APRN, in 1-2 weeks. Our office will schedule an appointment with your Community Center Coordinator, Neftali Ernandez MD , in 2 weeks. You have an appointment with your Cardiac Surgeon, Dr. Hayder Graham, 4 weeks with a chest x-ray, EKG, and Echo before your appointment. Cardiac Rehabilitation: Karlos Garcia was seen regarding participation in the outpatient Phase 2Cardiac Rehabilitation at [facility]. The patient agrees to a referral to this program. The referral will be sent at discharge and the patient should be contacted by the Program within 1- 2 weeks from discharge. Future Appointments and Orders Future Orders Complete By Expires Echocardiogram Transthoracic [62080 CPT(R)] 03/26/2024 09/25/2024 Process Instructions: Scheduling Instructions: Questions: Where will study be performed?: [facility] Does the patient have Congenital Heart Disease?: Does patient require sedation?: Sedation rationale: XR Chest PA & Lateral (Generic) [71281 51473 Custom] 03/26/2024 09/25/2024 Process Instructions: Scheduling Instructions: Questions: Portable exam?: Reason for exam and clinical history: s/p avr/cabg Clinical information / jerome questions for radiologist: Stat read required?: Date of injury if applicable: Requested Time: Where will study be performed?: [facility] Radiology Referral to Cardiac Rehab [[id number] Custom] As directed Process Instructions: If no progress note charted, please enter Clinical details in comments. Scheduling Instructions: Questions: My question or request is: s/p AVR/CABG. Cardiac rehab at [facility]. Referral to Home Health [REF34 Custom] As directed Process Instructions: If no progress note charted, please enter Clinical details in comments. Scheduling Instructions: Comments: Please evaluate Karlos Garcia for admission to Home Health. [address] Phone Number: Date of : 1960 Inpatient DOCUMENTATION FOR VNA SERVICES (INCLUDING THOSE PATIENTS WITH MEDICARE COVERAGE REQUIRING HOME VNA SERVICES AND/OR HOSPICE SERVICES) PATIENT'S LOCATION: Karlos Garcia [address] [place] [phone] Kelly Machine Operator's Name: self/family In discussion with the attending physician, it is certified that this patient is under their care and that they, or a Nurse Practitioner, or Physician Repair Department Manager who is working directly with them, [...] for services as follows: HOME HEALTH AGENCY: [facility] [address] [place] [phone] RN orders: Cardiopulmonary assessment, incisional assessment, assess [...] issues please call the Cardiology Office at [phone] FOR MEDICARE ONLY: (please delete this section [...] [facility] Section of Cardiac Surgery [facility] [address] FAX [phone] Date: 02/24/2024 CC: Aparna Jordan, MAURI Jordan, Aparna Sherman APRN [address] [place] [address] documented in this encounter Discharge Instructions * [...] Hayder Graham and/or the Cardiac Surgery Physician Repair Department Manager Team may be reached at . [...] Please refer to the card with the [place] Heart Association Guidelines for more information. You [...] Dr. Hayder Graham. You may use a [place] Track or treadmill but avoid any pulling [...] friends, go to a movie, go to restorationism, etc. Heavy activities: No hunting, skiing, jogging, [...] should resume a low fat, low cholesterol, [place] Heart Association Diet. Driving: No driving until [...] while being managed by your PCP and/or Community Center Coordinator. For future medication refills, please refer to your PCP and/or Community Center Coordinator after your discharge from our service. Thank you REMOVE CHEST TUBE SUTURES ON OR AFTER 03/02/24 Home oxygen therapy: N/A Follow up appointments: You should follow up with your PCP, Aparna Jordan APRN, in 1-2 weeks. Our office will schedule an appointment with your Community Center Coordinator, Neftali Ernandez MD , in 2 weeks. You have an appointment with your Cardiac Surgeon, Dr. Hayder Graham, 4 weeks with a chest x-ray, EKG, and Echo before your appointment. Cardiac Rehabilitation: Karlos Garcia was seen regarding participation in the outpatient Phase 2Cardiac Rehabilitation at [facility]. The patient agrees to a referral to [...] 0600 and on the weekends please page [phone]. * Eric Barahona PA - 02/23/2024 9:27 [...] 0600 and on the weekends please page [phone]. * Tiffanie Owens, GREEN END WORKER - 02/22/2024 2:48 PM EDT Physical Therapy [...] d/c for 10 days. 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 He works Precautions/Special Considerations: STERNAL [...] LRAD and supervision Time IN / OUT: 8727-8559 Total Time: 30 minutes; TEFx2 Tiffanie Owens Pager: [phone] Physical Therapy Inpatient Rehabilitation Department * Romeo [...] 0600 and on the weekends please page [phone]. * Kelley Hinson GREEN END WORKER - 02/21/2024 10:15 AM EDT Physical Therapy [...] d/c for 10 days. 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 * Kelley Hinson PTA - 02/20/2024 3:32 [...] at that time Kelley Hinson PTA Pager: [phone] Physical Therapy Inpatient Rehab Department * Louisa [...] 0600 and on the weekends please page [phone]. * Maris Benavides, PT - 02/19/2024 11:22 [...] d/c for 10 days. 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 Precautions/Special Considerations: STERNAL [...] outlined inthis evaluation. MARIS BENAVIDES, PT Pager: [phone] Physical Therapy Inpatient Rehabilitation Department Time IN / OUT: 5273-3882 Total Time: 38 (eval) minutes; * Antonio [...] 0600 and on the weekends please page [phone]. * Minnie Begum PA - 02/18/2024 8:25 [...] 0600 and on the weekends please page [phone]. * Kim Ha RCP - 02/17/2024 2:25 [...] plan since last visit. Hayder Graham MD [phone] Source Note - Hayder Graham MD - [...] given written informed consent. Hayder Graham MD [phone] * Hayder Graham MD - 02/17/2024 7:00 [...] given written informed consent. Hayder Graham MD [phone] documented in this encounter Miscellaneous Notes * [...] information for follow-up Home Health & Hospice, [address] [place] [address] Cardiac Rehab, [address] [place] [address] Transportation: family or friend will provide Functional status prior to admission: Independent Home Environment: Others in the home: alone. Current Living Arrangements: home/apartment/condo. Accessibility Concerns:a few steps to enter 1 floor home. Current Functional Ability: Assistive Person and Equipment DME used at home: none DME Needed at Discharge: N/A Patient is insured through: Primary Insurance: [place] [employer] Payor: [facility] / Plan: [facility] PPO / Product Type: *No [...] pain managed with scheduled Tylenol. Worked with [employer]. Ambulated in the roque multiple times during [...] Payor: [facility] / Plan: [facility] PPO / Product Type: *No Product type* / Secondary Insurance: N/A Last Physical Therapy Recommendation: home with home health (Str coming to stay for a week or two upon d/c) with to be determined (owns rolling walker, shower seat) Plan for discharge is: Home w/ Services Outpatient Agency/Support Group Needs: Homecare agency Home Health Services: Physical Therapy, Registered Nurse Agency Referrals: [facility] [address] [place] [phone] Transportation: family or friend will provide Barriers to discharge: Discharge planning Plan going forward: Service Care Management will continue to follow and assist with discharge planning and coordination of care as indicated. Anticipated Date of Discharge: 02/22/2024 Rhett Bell RN RN/CM - Cellphone: [phone] Pager: [phone] Covering Service RN/CM * Plan of Care [...] - 02/19/2024 10:44 AM EDT [facility] Karlos Garcia was seen today regarding participation in the outpatient Phase 2 Cardiac Rehabilitation at [facility]. The patient agrees to a referral to [...] surrogate would be surrogate decision maker per [place] surrogate decision making law. (Only good for 180 days) Any patient receiving care in [place] must abide by [place] law. The hierarchy for surrogate decision making [...] steady place to sleep or slept in [facility] (including now)?: No In the past 12 months has the [employer], gas, oil, or water [employer] threatened to shut off services in your [...] as: [address] [facility] [address] Physical address: [address] [facility], [address] Social & Family Supports: All names listed [...] Payor: [facility] / Plan: [facility] PPO / Product Type: *No Product type* / Secondary Insurance: N/A ; Prescription Coverage: Yes Preferred Pharmacy: [id number] [address] [place] Status: Patient is a : No Primary Care Provider confirmed: Aparna Jordan, MAURI [phone] Patient/Caregiver Goals of Treatment: dc to home Potential Needs for Transition of Care: home health care Agency Referrals: I have met with the patient to: discuss discharge planning needs. provide the [facility], Office of Care Management letter from the [employer] Letter [employer] pertaining to rehab referrals. provide a letter describing our affiliations within the [facility] and educate about their right to choose where referrals are sent. provide a list of Home Health Agencies / Durable Medical Equipment vendors which serve their preferred geographic area. provided patient with [facility] Star Quality Rating handout. They have requested referrals to: [facility] [address] [place] [address] Note routed to a Director Of Convention Services who will communicate referrals to facilities and [...] Reina Greene RN CM, BSN, CMGT-BC Ext [phone] * Plan of Care - Binta Trinidad [...] Operative Note Patient Name: Karlos Garcia : [id number] MR#: [id number] Case Date: 02/17/2024 Surgeon: Surgeon(s) and Role: * Hayder Graham MD - Primary * Neftali Menon PA - Physician Repair Department Manager Preoperative diagnosis: CAD Postoperative diagnosis: CAD, [...] mL Drains: Mediastinal and Left pleural Disposition: [facility] Condition: doing well without problems Attestation: Case Date: 02/17/2024 I performed this procedure without the involvement of a resident. HAYDER GRAHAM MD 02/17/2024 * Op Note - Hayder Graham MD - 02/17/2024 8:20 AM EDT [facility] Operative Note Patient Name: Karlos Garcia : [id number] MR#: [id number] Case Date: 02/17/2024 Surgeon: Surgeons and Role: * Hayder Graham MD - Primary * Neftali Menon PA - Physician Repair Department Manager Preoperative diagnosis: CAD Postoperative diagnosis: CAD, [...] mL Drains: Mediastinal and Left pleural Disposition: [facility] Procedure Description: The patient was brought [...] Aortic Valve Open W Cardiopulmonary Bypass Homogrf/Stent (68410) Yes 02/17/2024 7:28 AM EDT CAD Cabg, Artery-Vein, Two (27216) Yes 02/17/2024 7:28 AM EDT CAD Cabg, Arterial, Single (74026) Yes 02/17/2024 7:28 AM EDT CAD Endoscopy W/Video-Asst Vein [place], Cabg (47164) Yes 02/17/2024 7:28 AM EDT CAD POCT [...] MD CHEMISTRY ORDERABLE S [facility] [place] [address] * (ABNORMAL) Basic Metabolic Panel (non-fasting) (02/23/2024 [...] Carpio MD CHEMISTRY ORDERABLES Performing Organization Address [facility] Co de Phone Number [facility] [place] [address] * Potassium (02/22/2024 4:30 AM EDT) Potassium [...] ORDERABLE S Performing Organization Address [facility] Co de Phone Number [facility] [place] [address] * (ABNORMAL) Basic Metabolic Panel (non-fasting) (02/21/2024 [...] - 31 [facility] Comment:Add-on request. Samp le [...] Carpio MD CHEMISTRY ORDERABLES [facility] [place] [address] * Lactate, whole blood, send to lab ([facility]) (02/21/2024 9:45 AM EDT) Lactate WB 2.0 0.5 - 2.2 mmol/L [facility] Blood 02/21/2024 9:45 AM EDT 02/21/2024 9:52 AM EDT Narrative Resulting Agency Comment Spec In Lab Hayder Graham MD CHEMISTRY ORDERABLE S Performing Organization Address City/[facility]/ZIP Co de Phone Number [facility] [place] [address] * (ABNORMAL) Hepatic Function Panel (02/21/2024 9:45 AM EDT) Pathologist [facility] Protein, Total 5.7(L) 6.1 - 8.0 [...] MD CHEMISTRY ORDERABLE S Performing Organization Address City/[facility]/ZIP Co de Phone Number [facility] [place] [address] * Lipase (02/21/2024 9:45 AM EDT) Pathologist [facility] Lipase 56 0 - 60 unit/L [facility] Blood 02/21/2024 9:45 AM EDT 02/21/2024 9:52 AM EDT Narrative Resulting Agency Comment Spec In Lab Hayder Graham MD CHEMISTRY ORDERABLE S Performing Organization Address [facility] Co de Phone Number [facility] [place] [address] * Amylase (02/21/2024 9:45 AM EDT) Amylase 69 28 - 100 unit/L [facility] Blood 02/21/2024 9:45 AM EDT 02/21/2024 9:52 AM EDT Narrative Resulting Agency Comment Spec In Lab Hayder Graham MD CHEMISTRY ORDERABLE S Performing Organization Address [facility] de Phone Number [facility] [place] [address] * Potassium (02/21/2024 3:08 AM EDT) Pathologist [facility] Potassium 3.8 3.5 - 5.0 mmol/L [facility] [...] ORDERABLE S Performing Organization Address [facility] Co de Phone Number [facility] [place] [address] * XR Chest PA & Lateral (Generic) (02/20/2024 10:19 AM EDT) WORKSTATION ID [id number] RAD Anatomical Region Laterality Modality Chest N/A Digital Radiogra phy Impressions 02/20/2024 1:11 PM EDT Small pleural effusions. No pneumothorax Thank you for letting us participate in the care of this patient. ??If you are a health care provider and have any questions regarding this report, please contact the number below. ??For patients who have questions please contact the health memory care director that requested your imaging first. ? Electronically signed by: Rogerio Cruz MD, [facility] ??([phone]), at 02/20/2024 1:11 PM Narrative 02/20/2024 1:11 PM EDT EXAMINATION: XR CHEST PA AND LATERAL (GENERIC) CLINICAL HISTORY: s/p AVR/CABGx3 TECHNIQUE: PA and lateral views of the chest COMPARISON: 02/17/2024 FINDINGS: Support devices: Interval removal of [place]aila catheter, endotracheal tube and mediastinal chest tubes The cardiac silhouette is stable status post median sternotomy, CABG and aortic valve replacement. There are small pleural effusions. No pneumothorax. Procedure Note Rogerio Cruz MD - 02/20/2024 EXAMINATION: XR CHEST PA AND LATERAL (GENERIC) CLINICAL HISTORY: s/p AVR/CABGx3 TECHNIQUE: PA and lateral views of the chest COMPARISON: 02/17/2024 FINDINGS: Support devices: Interval removal of [place]-Kaila catheter, endotracheal tubeand mediastinal chest tubes The [...] have questions please contactthe health memory care director that requested your imaging first. Electronically signed by: Rogerio Cruz MD, [facility]([phone]), at 02/20/2024 1:11 PM Hayder Graham MD IMG DX ORDERABLES * Scan, Peripheral Blood (02/20/2024 4:23 AM EDT) Plat estimate Decreased [facility] RBC Morphology Normal [facility] Blood 02/20/2024 4:23 AM EDT 02/20/2024 4:42 AM EDT Narrative Resulting Agency Comment Spec In Lab Minnie FRENCH HEMATOLOGY CECILIO ALEMAN [facility] [place] [address] * (ABNORMAL) Differential, Automated (02/20/2024 4:23 AM EDT) Pathologist [facility] Neutrophil % 81.7 % [facility] Neutrophil Absolute 10.37(H) 1.70 - 6.10 x10(3)/mc L [facility] Lymph % 7.4 % [facility] Lymphocytes Abs 0.9 0.9 - 3.2 x10(3)/mc L [facility] Monocyte % 9.7 % [facility] Monocyte Abs 1.2(H) 0.3 - 0.9 x10(3)/mc L [facility] Eos % 0.1 % [facility] Eosinophils Abs 0.0 0.0 - 0.4 x10(3)/mc L [facility] Basophil % 0.2 % [place] [...] Absolute 0.12(H) 0.00 - 0.04 x10(3)/ L [facility] Blood 02/20/2024 4:23 AM EDT 02/20/2024 4:42 AM EDT Narrative Resulting Agency Comment Spec In Lab Minnie FRENCH HEMATOLOGY CECILIO ALEMAN [facility] [place] [address] * (ABNORMAL) Hemogram (02/20/2024 4:23 AM EDT) White Blood Cell 12.7(H) 4.0 - 9.5 x10(3)/[facility] Red Blood Cell 4.26(L) 4.58 - 5.54 x10(6)/[facility] LAB[facility] Hemoglobin 12.3(L) 13.7 - 16.5 g/dL [facility] Hematocrit 37.1(L) 40.5 - 48.5 % [facility] Mean Cell Volume 87.1 82.9 - 93.1 [facility] Mean Cell Hemoglobin 28.9 27.5 - 32.1 pg [facility] Mean Cell Hemoglobin Concentration 33.2 32.0 - 35.7 g/dL [facility] Platelet 88(L) 145 - 357 x10(3)/[facility] LABORATORY RDW Standard Deviation 43.5 36.0 - 45.0 [facility] RDW coefficient of variation 13.7 11.4 - 13.8 % [facility] Mean Platelet Volume 10.2 7.6 - 12.9 [facility] NRBC% auto 0.0 % [facility] NRBC Absolute 0.000 0.000 - 0.000 x10(3)/ L [facility] Blood 02/20/2024 4:23 AM EDT 02/20/2024 4:42 AM EDT Narrative Resulting Agency Comment Spec In Lab Minnie FRENCH HEMATOLOGY CECILIO ALEMAN [facility] [place] [address] * (ABNORMAL) Basic Metabolic Panel (non-fasting) (02/20/2024 [...] MD CHEMISTRY ORDERABLE S Performing Organization Address City/[facility]/ZIP Co de Phone Number [facility] [place] [address] * Potassium (02/19/2024 3:57 AM EDT) Potassium [...] ORDERABLE S Performing Organization Address [facility] Co de Phone Number [facility] [place] [address] * POCT Glucose (02/18/2024 8:24 AM EDT) Glucose, POC 157 65 - 199 mg/dL [facility] Comment: Supplemental ranges: <140 mg/dL before meals <180 mg/dL all other times of the day Blood 02/18/2024 8:24 AM EDT 02/18/2024 8:24 AM EDT Hayder Graham MD POINT OF CARE TEST ORDERABLES Performing Organization Address [facility]/ZIP Co de Phone Number [facility] [place] [address] * Scan, Peripheral Blood (02/18/2024 1:40 AM EDT) Plat estimate Decreased [facility] RBC Morphology Normal [facility] Blood 02/18/2024 1:40 AM EDT 02/18/2024 1:56 AM EDT Narrative Resulting Agency Comment Spec In Lab Neftali FRENCH HEMATOLOGY ORDER LOE [facility] [place] [address] * (ABNORMAL) Differential, Automated (02/18/2024 1:40 AM EDT) Neutrophil % 87.1 % [facility] Neutrophil Absolute 15.03(H) 1.70 - 6.10 x10(3)/mc L [facility] Lymph % 3.0 % [facility] Lymphocytes Abs 0.5(L) 0.9 - 3.2 x10(3)/mc L [facility] Monocyte % 9.1 % [facility] Monocyte Abs 1.6(H) 0.3 - 0.9 x10(3)/mc L [facility] Eos % 0.0 % [facility] Eosinophils Abs 0.0 0.0 - 0.4 x10(3)/mc L [facility] Basophil % 0.2 % [place] [...] FRENCH HEMATOLOGY ORDER OLE [facility] [place] [address] * (ABNORMAL) Hemogram (02/18/2024 1:40 AM EDT) [...] Standard Deviation 39.9 36.0 - 45.0 fL [facility] RDW coefficient of variation 13.2 11.4 - 13.8 % [facility] Mean Platelet Volume 9.9 7.6 - 12.9 fL [facility] NRBC% auto 0.0 % [facility] NRBC Absolute 0.000 0.000 - 0.000 x10(3)/mc L [facility] Blood 02/18/2024 1:40 AM EDT 02/18/2024 1:56 AM EDT Narrative Resulting Agency Comment Spec In Lab Neftali FRENCH HEMATOLOGY ORDER OLE [facility] [place] [address] * (ABNORMAL) Basic Metabolic Panel (non-fasting) (02/18/2024 [...] MD CHEMISTRY ORDERABLE S [facility] [place] [address] * (ABNORMAL) Troponin (02/18/2024 1:40 AM EDT) Troponin-T, High Sensitivity 342(H) <=22 ng/L [facility] [...] can be found in the [facility] [facility] Laboratory Test Catalog Troponin - [facility] Laboratory Test Catalog Reference: Fourth Wiggins Definition of Myocardial Infarction. Journal of the [place] [employer] of [employer]iology 2018;72:2955-7576 Blood 02/18/2024 1:40 AM EDT 02/18/2024 1:56 AM EDT Narrative Resulting Agency Comment Spec In Lab Hayder Graham MD CHEMISTRY ORDERABLE S [facility] [place] [address] * POCT Glucose (02/17/2024 8:13 PM EDT) Glucose, POC 142 65 - 199 mg/dL [facility] Comment: Supplemental ranges: <140 mg/dL before meals <180 mg/dL all other times of the day Blood 02/17/2024 8:13 PM EDT 02/17/2024 8:13 PM EDT Hayder Graham MD POINT OF CARE TEST ORDERABLES Performing Organization Address [facility] Co de Phone Number [facility] [place] [address] * POCT Glucose (02/17/2024 5:42 PM EDT) Glucose, POC 160 65 - 199 mg/dL [facility] Comment: Supplemental ranges: <140 mg/dL before meals <180 mg/dL all other times of the day Blood 02/17/2024 5:42 PM EDT 02/17/2024 5:42 PM EDT Hayder Graham MD POINT OF CARE TEST ORDERABLES Performing Organization Address [facility] Co de Phone Number [facility] [place] [address] * Hemoglobin (02/17/2024 5:42 PM EDT) [facility] Signature Hemoglobin 13.7 13.7 - 16.5 g/dL [facility] Blood 02/17/2024 5:42 PM EDT 02/17/2024 6:10 PM EDT Narrative Resulting Agency Comment Spec In Lab Hayder Graham MD HEMATOLOGY ORDERABL ES Performing Organization Address [facility] Co de Phone Number [facility] [place] [address] * Potassium (02/17/2024 5:42 PM EDT) [facility] Signature Potassium 4.3 3.5 - 5.0 mmol/L [facility] [...] MD CHEMISTRY ORDERABLE S [facility] [place] [address] * (ABNORMAL) BLOOD GAS 2 ARTERIAL (02/17/2024 [...] [facility] PF Ratio Art [address] [facility] Blood 02/17/2024 4:18 PM EDT 02/17/2024 4:18 PM EDT Hayder Graham MD POINT OF CARE TEST ORDERABLES [facility] [place] [address] * XR Chest One View (02/17/2024 1:44 PM EDT) [employer] WORKSTATION ID [id number] DH RAD Anatomical Region Laterality Modality Chest N/A Digital Radiogra phy Impressions 02/17/2024 2:12 PM EDT 1. ??No definite pleural fluid collection or pneumothorax. 2. ??Right IJ [place]-Kaila catheter tip terminates in a descending branch [...] questions please contact the health memory care director that requested your imaging first. ? Electronically signed by: Denzel Hankins MD, [facility] ??([phone]), at 02/17/2024 2:12 PM Narrative 02/17/2024 2:12 PM EDT EXAMINATION: XR CHEST ONE VIEW CLINICAL HISTORY: s/p avr/cabg eval effusions TECHNIQUE: 1 view of the chest COMPARISON: Chest x-ray 01/09/2024, chest CT 02/03/2024 FINDINGS: ET tube tip terminates 5.2 cm above the carlos. Right IJ [place]-Kaila catheter tip terminates in a descending branch [...] 5.2 cm above the carlos. Right IJ [place]-Ganzcatheter tip terminates in a descending branch of [...] fluid collection or pneumothorax. 2. Right IJ [place]-Kaila catheter tip terminates in a descending branch ofthe right pulmonary artery. Suggest catheter retraction. 3. Additional support lines and tubes as above. Thank you for letting us participate in the care of this patient. If youare a health care provider and have any questions regarding this report,please contact the number below. For patients who have questions please contactthe health memory care director that requested your imaging first. Electronically signed by: Denzel Hankins MD, [facility]([phone]), at 02/17/2024 2:12 PM Hayder Graham MD [...] [facility] PF Ratio Art [address] [facility] Blood 02/17/2024 1:31 PM EDT 02/17/2024 1:31 PM EDT Hayder Graham MD POINT OF CARE TEST ORDERABLES [facility] [place] [address] * (ABNORMAL) Coox2 (02/17/2024 1:21 PM EDT) [...] OF CARE TEST ORDERABLES Performing Organization Address City/[facility]/ZIP Co de Phone Number [facility] [place] [address] * (ABNORMAL) BLOOD GAS 2 ARTERIAL (02/17/2024 [...] TEST ORDERABLES Performing Organization Address [facility] Co de Phone Number [facility] [place] [address] * (ABNORMAL) Fibrinogen (02/17/2024 12:10 PM EDT) [...] ORDERABLE S Performing Organization Address [facility] Co de Phone Number [facility] [place] [address] * (ABNORMAL) Thrombin time (02/17/2024 12:10 PM [...] ORDERABLE S Performing Organization Address [facility] Co de Phone Number [facility] [place] [address] * APTT (02/17/2024 12:10 PM EDT) Partial [...] ORDERABLE S Performing Organization Address [facility] Co de Phone Number [facility] [place] [address] * (ABNORMAL) Prothrombin Time (02/17/2024 12:10 PM [...] MD HEMATOLOGY ORDERABLE S [facility] [place] [address] * (ABNORMAL) Hemogram (02/17/2024 12:10 PM EDT) [...] [facility] NRBC% auto 0.0 % [facility] NRBC Absolute 0.000 0.000 - 0.000 x10(3)/mc L [facility] Blood 02/17/2024 12:1 0 PM EDT 02/17/2024 12:19 PM EDT Narrative Resulting Agency Comment Spec In Lab Tara York MD HEMATOLOGY ORDERABLE S [facility] [place] [address] * (ABNORMAL) BLOOD GAS 2 ARTERIAL (02/17/2024 [...] mmol/L [facility] Comment: Noted by surgical instrument mechanic. Please note: Patients with WBC [...] OF CARE TEST ORDERABLES [facility] [address] [place] [address] * (ABNORMAL) BLOOD GAS 2 ARTERIAL (02/17/2024 [...] mmol/L [facility] Comment: Noted by surgical instrument mechanic. Please note: Patients with WBC [...] TEST ORDERABLES Performing Organization Address [facility] de Phone Number [facility] [place] [address] * (ABNORMAL) Hemoglobin and Hematocrit, blood (02/17/2024 [...] ORDERABL ES Performing Organization Address [facility] de Phone Number [facility] [place] [address] * (ABNORMAL) Platelet count (02/17/2024 11:04 AM EDT) Platelet 106(L) 145 - 357 x10(3)/mc L [facility] Immature Plt % 1.6 0.0 - 7.4 % [facility] Comment: Limitation of the Immature Platelet Fraction (IPF)-May be less reliable when the platelet count is less than 30l468/uL due to statistical imprecision. The IPF value [...] in a decreased state of production. References: [employer] The Clinical Value of the Immature Platelet Fraction (IPF) in Cell Recovery Document Number 10-1143 03/2011 [employer] The Role of the Immature Platelet Fraction (IPF) in the Differential Diagnosis of Thrombocytopenia, Document MKT-10-1209 V002/15/14 Blood 02/17/2024 11:0 4 AM EDT 02/17/2024 11:12 AM EDT Narrative Resulting Agency Comment Spec In Lab Hayder Graham MD HEMATOLOGY ORDERABL ES Performing Organization Address City/[facility]/ZIP Co de Phone Number [facility] [place] [address] * (ABNORMAL) Fibrinogen (02/17/2024 11:04 AM EDT) [...] MD HEMATOLOGY ORDERABL ES Performing Organization Address City/[facility]/ZIP Co de Phone Number [facility] [place] [address] * (ABNORMAL) BLOOD GAS 2 ARTERIAL (02/17/2024 [...] CARE TEST ORDERABLES [facility] [place] [address] * (ABNORMAL) BLOOD GAS 2 ARTERIAL (02/17/2024 [...] [facility] Co de Phone Number [facility] [place] [address] * Surgical Pathology Report (02/17/2024 10:01 AM EDT) Final Diagnosis [id number] ? Location: [facility]; [facility]; The signing pathologist has (i) examined the relevant preparation(s) for the specimen(s) and (ii) rendered or confirmed the diagnosis(es). . ?Surgical Pathology DIAGNOSIS Aortic valve leaflets, excision: Valve leaflets with myxoid degeneration, nodular fibrosis and dystrophic calcifications. Electronically signed by: ?Lindsay FERNANDEZ, Livier Gonzalez Verified: ??02/24/2024 13:49 ??Pathologist Performed at: ??-[facility] [place], [place] [address] Monogram And Letter Paster: Job Brewer MD, FCAP, ??CLIA Certificate: [id number] SPECIMEN(S) SUBMITTED A - Aortic Valve Leaflets, [...] Sections Processing Blocks submitted for decalcification: A1. Facility Security Officer sections in 1 cassette labeled A1. ??ajw 02/24/2024 1:49 PM EDT [facility] AORTIC STRUCTURE / Unknown 02/17/2024 10:01 AM EDT 02/17/2024 10:01 AM EDT Hayder Graham MD PATHOLOGY/[place] [address] * Specimen to Pathology (02/17/2024 10:01 AM EDT) AP Specimen 02/17/2024 10:0 1 AM EDT 02/17/2024 10:01 AM EDT Narrative [facility] - 02/17/2024 10:01 AM EDT Specimen requisition ordered. ??Separate Pathology report to follow Hayder Graham MD PATHOLOGY/CYTOLOGY ORDERABLES [facility] [place] [address] * (ABNORMAL) BLOOD GAS 2 ARTERIAL (02/17/2024 [...] OF CARE TEST ORDERABLES [facility] [place] [address] * (ABNORMAL) BLOOD GAS 2 VENOUS (02/17/2024 9:34 AM EDT) pH, Venous 7.22(Criti marquez) 7.32 - 7.42 [facility] Comment:Noted by surgical instrument mechanic. PCO2, Venous 43 41 - 51 mmHg [facility] Comment:Noted by surgical instrument mechanic. PO2, Venous 57(H) 25 - 40 mmHg [facility] Comment:Noted by surgical instrument mechanic. Bicarbonate, Venous 17.1 mmol/L [facility] Comment:Noted by surgical instrument mechanic. Base Excess, Venous -10.6 mmol/L [facility] Comment:Noted by surgical instrument mechanic. Hgb Blood Gas 11.2(L) 13.7 - 16.5 g/dL [facility] Comment:Noted by surgical instrument mechanic. Oxyhemoglobin, Venous 86.5 % [facility] Comment:Noted by surgical instrument mechanic. Carboxyhemoglob in, Venous 0.3 % [facility] Comment: Noted by surgical instrument mechanic. Nonsmokers: 0.5-1.5% COHB Smokers: Variable, but usually less than 10% Toxic: 20-30% COHB Lethal: Greater than 60% COHB Methemoglobin, Venous 0.0 <=1.5 % [facility] Comment:Noted by surgical instrument mechanic. Na Whole Blood 156(H) 135 - 145 mmol/L [facility] Comment:Noted by surgical instrument mechanic. K Whole Blood 5.5(H) 3.5 - 5.0 mmol/L [facility] Comment: Noted by surgical instrument mechanic. Please note: Patients with WBC >100,000 may have falsely elevated Potassium levels. Contact the Clinical Chemistry Laboratory if there are any questions. ICa Whole Blood 1.03(L) 1.15 - 1.33 mmol/L [facility] Comment: Noted by surgical instrument mechanic. Note: ??Total bilirubin higher than 20 mg/dL may lead to falsely low ionized calcium. CL Whole Blood 100 98 - 107 mmol/L [facility] Comment:Noted by surgical instrument mechanic. Gluc Whole Bld 132 65 - 199 mg/dL [facility] Comment: Noted by surgical instrument mechanic. Diabetes: >=200 mg/dL plus symptoms Lactate WB 1.0 0.5 - 2.2 mmol/L [facility] Comment:Noted by surgical instrument mechanic. Blood Gas Source Venous [facility] Blood 02/17/2024 9:34 AM EDT 02/17/2024 9:34 AM EDT Hayder Graham MD POINT OF CARE TEST ORDERABLES [facility] [place] [address] * (ABNORMAL) BLOOD GAS 2 ARTERIAL (02/17/2024 [...] OF CARE TEST ORDERABLES Performing Organization Address City/[facility]/ZIP Co de Phone Number [facility] [place] [address] * POCT Glucose (02/17/2024 6:38 AM EDT) Glucose, POC 98 65 - 199 mg/dL [facility] Comment: Supplemental ranges: <140 mg/dL before meals <180 mg/dL all other times of the day Blood 02/17/2024 6:38 AM EDT 02/17/2024 6:38 AM EDT Hayder Graham MD POINT OF CARE TEST ORDERABLES Performing Organization Address [facility] Co de Phone Number [facility] [place] [address] * Transesophageal Echo/OR (02/17/2024 6:33 AM EDT) [...] [facility] [...] COLBY) 0836 (Given - Provider: Jazlyn Maldonado, CLOBY) aspirin chewable tablet 81 mg 81 mg, [...] Routine documented in this encounter Care Teams Abap Developer Relationship Specialty Start Date End Date Aparna Jordan APRN PCP - General Family Medicine 10/21/23 05/26/24 documented as of this encounter
--- OUTSIDE RECORDS SUMMARY | 2024-07-21 10:10 | XMS_ITS | Encounter Summary ---
Author Organization [facility] [address] Care Team Providers Care Flight Nurse Name Role Phone Vanessa Christian MAURI Primary Care Provider [phone] Reason for Visit * Auth/Cert (Routine) Specialty [...] ARTERIAL GRAFT (WRVU 7.93) Zak Farmer MD [facility] [place] [address] [facility] Referral ID Status Reason Start Date Expiration Date Visits Re quested Visits Authorized [id number] 1 1 Encounter Details Date Type Department Care Team (Late st Contact Info) Description 02/17/2024 7:35 AM EDT Anesthesia Event Main Operating Room [facility] [place] [id number] Roman York MD [facility] [place] [address] Anesthesia Record Procedure Summary Procedure Name Responsible [...] to heart; 02/18/24; 0930 02/17/24 0000 by rDiss Moncada RN 02/18/24 0930 by Sadiq Woo RN Chest Tube 02/17/24; Chest Tube ; Right; anterior; mediastinum; 28F angled, posterior to heart; 02/18/24; [address]2902/17/24 0000 by Driss Moncada RN 02/18/24 0930 by Sadiq Woo RN PIV 02/17/24; 0715; stlt-pwo-mdeois catheter system; 18 gauge; cephalic vein (lateral [...] th e electric, gas, oil, or water [employer] threatened to shut off services in your [...] Procedure Summary Date: 02/17/24 Room / Location: [facility] OR [address] [place] [address] MAIN OR Anesthesia Start: 734 Anesthesia Stop: [...] include unfiled device data. Patient Location: [facility] Level of Consciousness: Sedated (Pharmacologic/Intentional) Pain [...] mg documented in this encounter Care Teams Flight Nurse Relationship Specialty Start Date End Date Vanessa Christian APRN PCP - General Family Medicine 10/21/23 05/26/24 documented as of this encounter
--- OUTSIDE RECORDS SUMMARY | 2024-07-21 10:11 | XMS_ITS | Encounter Summary ---
Author Organization [facility] [place] [address] Care Team Providers Care Puppet Master Name Role Phone Victor M Lafleur MD Primary Care Provider [phone] Encounter Details Date Type Department Care Team (Late st Contact Info) Description 09/26/2023 Abstract Cardiology at [address] [address] Karen Billy, RN Nonrheumatic aortic [...] face documented in this encounter Care Teams Puppet Master Relationship Specialty Start Date End Date Victor M Lafleur MD PCP - General 10/02/13 10/20/23 documented as of this encounter
--- OUTSIDE RECORDS SUMMARY | 2024-07-21 10:11 | XMS_ITS | Encounter Summary ---
[place] [address] Care Team Providers Care Ob/Gyn Doctor Name Role Phone Victor M Lafleur MD Primary Care Provider [phone] Reason for Visit * Reason Onset Date Comments Referral 09/20/2023 Encounter Details Date Type Department Care Team (Late st Contact Info) Description 09/20/2023 Telephone Cardiology at [address] [address] Karen Billy, house coordinator Social History Tobacco Use Types Packs/Day Years [...] on filedocumented in this encounter Care Teams Ob/Gyn Doctor Relationship Specialty Start Date End Date Victor M Lafleur MD PCP - General 10/02/13 10/20/23 documented as of this encounter
[2024-07-28 11:34] VITALS: BP 152/75; PULSE 88
[2024-07-30 10:00] VITALS: BP 125/64; PULSE 66; O2SAT 98
--- OUTSIDE RECORDS SUMMARY | 2024-07-30 10:03 | XMS_ITS | Encounter Summary ---
Author Organization [facility] Address [facility] [place] [address] Care Team Providers Care Toxicologist Name Role Phone Vanessa Christian Lane DOTSON Primary Care Provider [phone] Reason for Visit * Reason Comments Coronary Artery Disease Aortic Stenosis Encounter Details Date Type Department Care Team (Latest Contact Info) Description 05/27/2024 11:00 AM EDT Office Visit Cardiology at [address] [phone] Neftali Ernandez MD [facility] [place] [address] ASCVD (arteriosclerotic cardiovascular disease); Nonrheumatic aortic valve stenosis Social History Tobacco Use Types Packs/Day Years Used Date Smoking Tobacco: Former Cigarettes Smokeless Tobacco: Never Comments:Quit 15 + years ago Alcohol Use Standard Drinks/Week Comments Yes 0 (1 standard drink = 0.6 oz pur e alcohol) rare [facility] Utilities Answer Date Recorded In the past 12 months has e [employer], gas, oil, or water [employer] threatened to shut off services in [...] disorders documented in this encounter Care Teams Toxicologist Relationship Specialty Start Date End Date Vanessa Christian, MAURI [address] [place] [address] PCP - General Family Medicine 05/27/24 documented as of this encounter
--- OUTSIDE RECORDS SUMMARY | 2024-07-30 10:03 | XMS_ITS | Clinical Summary ---
Author Organization [facility] Address [facility] [place] [address] Care Team Providers Care Outfitter Cabin Name Role Phone Vanessa Christian Lane DOTSON Primary Care Provider [phone] Allergies No known active allergies Medications Medication [...] of face 09/26/2023 05/27/2024 Overview (09/26/2023): Right orthodox Chest pressure 08/14/2023 10/21/2023 SILVA (dyspnea on exertion) 08/14/2023 HLD (hyperlipidemia) 08/14/2023 024 Encounters Date Type Department Care Team Description 05/27/2024 11:00 AM EDT Office Visit Cardiology at [address] [place] [address] Neftali Ernandez MD ASCVD (arteriosclerotic cardiovascular disease); Nonrheumatic aortic valve stenosis 05/27/2024 Travel 05/20/2024 Travel from Last 3 Months Social History Tobacco Use Types Packs/Day Years Used Date Smoking Tobacco: Former Cigarettes Smokeless Tobacco: Never Comments:Quit 15 + years ago Alcohol Use Standard Drinks/Week Comments Yes 0 (1 standard drink = 0.6 oz pur e alcohol) rare [facility] Utilities Answer Date Recorded [...] PCV) 2024 Medical Devices Implanted Type Area Yard Brakeman Device Identifier Shelf Expiration Date Model / Serial / Lot Cable,Cut,Edg ,Blnt,Ss,3tpr ([id number]) - [id number] Implanted:Qty : 1 on 02/17/2024 by Zak Farmer MD at [facility] IMPLANTS Midline: Chest [employer] - [id number] 09/02/2028 [id number] / / [id number] Valve Coronary Aortic 23mm Tissue Trnscath Biop[employer] Inspiris ([id number]) ([employer]) - [id number] Implanted:Qty : 1 on 02/17/2024 by Zak Farmer MD at [facility] IMPLANTS Heart [employer] - TSAI LI 09/15/2027 [id number] 23MM / [id number] / Procedures Procedure Name Priority Date/Time Associated Diagnosis Comments EKG 12-LEAD Routine 05/27/2024 11:24 AM EDT from Last 3 Months Results * EKG 12 Lead (05/27/2024 11:24 AM EDT) Pathologist [facility] Ventricular rate 54 BPM MUSE SYSTEM Atrial Rate 54 BPM MUSE SYSTEM P-R Interval 216 ms MUSE SYSTEM QRS Duration 92 ms MUSE SYSTEM Q-T Interval 388 ms MUSE SYSTEM QTC Calculated (Bezet) 367 ms MUSE SYSTEM Calculated P Stigler 12 degrees MUSE SYSTEM Calculated R Stigler 27 degrees MUSE SYSTEM Calculated T Stigler 62 degrees MUSE SYSTEM INTERPRETATION Sinus bradycardia with 1st degree A-V block Otherwise normal ECG When compared with ECG of 12-MAR-2024 14:35, T wave inversion no longer evident in Anterior leads Confirmed by MD Ernandez Daniel ([id number]) on 06/01/2024 8:36:17 AM MUSE SYSTEM 05/27/2024 [...] Status decision made by: Patient Care Teams Outfitter Cabin Relationship Specialty Start Date End Date Vanessa Christian APRN [address] [place] [address] PCP - General Family Medicine 05/27/24
--- OUTSIDE RECORDS SUMMARY | 2024-07-30 10:03 | XMS_ITS | Encounter Summary ---
Author Organization [facility] Address [facility] [place] [address] Care Team Providers Care Wrapper Cashier Name Role Phone Vanessa Christian MAURI Primary Care Provider [phone] Encounter Details Date Type Department Care Team (Latest Contact Info) Description 03/12/2024 1:30 PM EDT - 03/12/2024 11:59 PM EDT Hospital Encounter XRay at [address] [place] [address] Coronary artery disease, unspecified vessel or lesion type, unspecified whether angina present, unspecified whether viejas or transplanted heart Discharge Disposition: Home Social History Tobacco Use Types Packs/Day Years Used Date Smoking Tobacco: Former Cigarettes Smokeless Tobacco: Never Comments:Quit 15 + years ago Alcohol Use Standard Drinks/Week Comments Yes 0 (1 standard drink = 0.6 oz pur e alcohol) rare [facility] Utilities Answer Date Recorded In the past 12 months has e [employer], gas, oil, or water [employer] threatened to shut off services in your [...] type, unspecified whether angina present, unspecified whether viejas or transplanted heart documented in this encounter Results * XR Chest PA & Lateral (Generic) (03/12/2024 1:42 PM EDT) WORKSTATION ID [id number] RAD Anatomical Region Laterality Modality Chest N/A [...] eval effusions I25.10, Atherosclerotic heart disease of viejas coronary artery without angina pectoris TECHNIQUE: PA [...] eval effusions I25.10, Atherosclerotic heart disease of viejas coronary artery withoutangina pectoris TECHNIQUE: PA and [...] type, unspecified whether angina present, unspecified whether viejas or transplanted heart documented in this encounter Care Teams Wrapper Cashier Relationship Specialty Start Date End Date Vanessa Christian APRN PCP - General Family Medicine 10/21/23 05/26/24 documented as of this encounter
--- OUTSIDE RECORDS SUMMARY | 2024-07-30 10:03 | XMS_ITS | Referral Summary ---
Author Organization [facility] Address [address] [place] [address] Care Team Providers Care Underwriter Mortgage Loan Name Role Phone Filidayna Vanessa Sherman NP Primary Care Provider [phone] Social History Tobacco Use Types Packs/Day Years Used Date Smoking Tobacco: Never Assessed Sex and Gender Information Value Date Recorded Sex Assigned at Not on file Gender Identity Not on file Sexual Orientation Not on file Plan of Treatment Not on file Care Teams Underwriter Mortgage Loan Relationship Specialty Start Date End Date Vanessa Christian NP [address] [place] [address] PCP - General Family Medicine - Primary Care 10/07/23
--- OUTSIDE RECORDS SUMMARY | 2024-07-30 10:03 | XMS_ITS | Encounter Summary ---
Author Organization [facility] Address [facility] [place] [address] Care Team Providers Care Surgical Garment Assembler Name Role Phone Gino Vanessa Lane DOTSON Primary Care Provider [phone] Encounter Details Date Type Department Care Team (Late st Contact Info) Description 02/24/2024 Orders Only Cardiac Surgery [facility] [place] [id number] Trudi Lester APRN [facility] [place] [address] Social History Tobacco Use Types Packs/Day Years Used Date Smoking Tobacco: Former Cigarettes Smokeless Tobacco: Never Comments:Quit 15 + years ago Alcohol Use Standard Drinks/Week Comments Yes 0 (1 standard drink = 0.6 oz pur e alcohol) rare [facility] Utilities Answer Date Recorded In the past 12 months has e [employer], gas, oil, or water [employer] threatened to shut off services in your home? No 02/18/2024 Hunger Vital Sign Answer Date Recorded Within the past 12 months, y ou worried that your food would run out before you got the money to buy more. Never true 02/18/20 Within the past 12 months, t he [...] filedocumented in this encounter Care Teams Surgical Garment Assembler Relationship Specialty Start Date End Date Vanessa Christian APRN PCP - General Family Medicine 10/21/23 05/26/24 documented as of this encounter
--- OUTSIDE RECORDS SUMMARY | 2024-07-30 10:03 | XMS_ITS | Encounter Summary ---
Author Organization [facility] Address [address] [place] [address] Care Team Providers Care Roadway Technician Name Role Phone Vanessa Christian Lane MONCADA Primary Care Provider Encounter Details Date Type Department Care Team (Late st Contact Info) Description 10/24/2023 Lab Requisition [facility] Pathology & Laboratory Medicine - [address] [address] Oscar Nichole MD [address] [place] [address] [phone] Factitial dermatitis Social History Tobacco Use Types [...] management options, if applicable. 10/28/2023 11:[address] [facility] Final Diagnosis A. SKIN OF PENTECOSTAL, LEFT, SHAVE BIOPSY: - Seborrheic keratosis, pigmented. 10/28/2023 11:[address] [facility] Attestation By the signature below, the attending physician certifies that they have 1) personally conducted a gross and/or microscopic examination of the described specimen(s), and/or personally interpreted the results of laboratory testing of the described specimen(s), and 2) personally rendered or confirmed the above diagnosis. 10/28/2023 11:24 [facility] at [address] Microscopic Description The stratum corneum is thickened by compact and basketweave orthokeratosis with formation of horn pseudocysts. The epidermis is acanthotic with formation of broad and anastomosing trabeculae. The trabeculae are composed of basaloid keratinocytes with round uniform nuclei. The keratinocytes have a variable amount of melanin pigment. 10/28/2023 11:24 [facility] Clinical History Pigmented 2 cm patch; clinical diagnosis code: L98.1 10/28/2023 11:24 [facility] Gross Description A. Received in formalin labelled with proper patient identification (initials P, A) and left rastafarian is a shave biopsy of an irregular [...] Nora Anderson 10/25/2023 8:47 10/28/2023 11:24 [facility] Performing Lab [facility] 10/28/2023 11:24 [facility] Scanned Images 10/28/2023 11:24 [facility] Tissue SPECIMEN FROM SKIN / Unknown 10/24/2023 14:30 EST 10/24/2023 22:04 EST Oscar Nichole MD PATHOLOGY ORDERABLES [facility] [address] [place] [address] documented in this encounter Visit Diagnoses Diagnosis Factitial dermatitis Dermatitis factitia (artefacta) documented in this encounter Care Teams Roadway Technician Relationship Specialty Start Date End Date Vanessa Christian NP [address] [place] [address] PCP - General Family Medicine - Primary Care 10/07/23 documented as of this encounter
--- OUTSIDE RECORDS SUMMARY | 2024-07-30 10:03 | XMS_ITS | Encounter Summary ---
Author Organization [facility] Address [facility] [place] [address] Care Team Providers Care Silviculture Forester Name Role Phone Vanessa Christian MAURI Primary Care Provider [phone] Encounter Details Date Type Department Care Team [...] on filedocumented in this encounter Care Teams Silviculture Forester Relationship Specialty Start Date End Date Vanessa Christian APRN PCP - General Family Medicine 10/21/23 05/26/24 documented as of this encounter
--- OUTSIDE RECORDS SUMMARY | 2024-07-30 10:03 | XMS_ITS | Encounter Summary ---
Author Organization [facility] [place] [address] Care Team Providers Care Director Of Event Sales Name Role Phone Vanessa Christian MAURI Primary Care Provider [phone] Encounter Details Date Type Department Care Team [...] in this encounter Care Teams Director Of Event Sales Relationship Specialty Start Date End Date Vanessa Christian APRN [address] [place] [address] PCP - General Family Medicine 05/27/24 documented as of this encounter
--- OUTSIDE RECORDS SUMMARY | 2024-07-30 10:03 | XMS_ITS | Encounter Summary ---
Author Organization [facility] Address [facility] [place] [address] Care Team Providers Care Aerospace Engineer Name Role Phone Vanessa Christian EQUAL OPPORTUNITY REPRESENTATIVE Primary Care Provider [phone] Encounter Details Date Type Department Care Team (Late st Contact Info) Description 03/12/2024 2:40 PM EDT Office [place] [phone] Zka Farmer MD [facility] [place] [address] Coronary artery disease, unspecified vessel or lesion type, unspecified whether angina present, unspecified whether [place] or transplanted heart Social History Tobacco Use Types Packs/Day Years Used Date Smoking Tobacco: Former Cigarettes Smokeless Tobacco: Never Comments:Quit 15 + years ago Alcohol Use Standard Drinks/Week Comments Yes 0 (1 standard drink = 0.6 oz pur e alcohol) rare [facility] Utilities Answer Date Recorded In the past 12 months has e [employer], gas, oil, or water [employer] threatened to shut off services in your [...] 2:40 PM EDT To: MD Vanessa Coles, EQUAL OPPORTUNITY REPRESENTATIVE Re; Karlos Santa ( 1960) We had [...] office. Best personal regards, Zak Farmer MD [phone] documented in this encounter Plan of Treatment Not on file documented as of this encounter Procedures Procedure Name Priority Date/Time Associated Diagnosis Comments EKG 12-LEAD Routine 03/12/2024 2:35 PM EDT Coronary artery disease, unspecified vessel or lesion type, unspecified whether angina present, unspecified whether [place] or transplanted heart documented in this encounter Results * EKG 12 Lead (03/12/2024 2:35 PM EDT) Ventricular rate 59 BPM MUSE SYSTEM Atrial Rate 59 BPM MUSE SYSTEM P-R Interval 190 ms MUSE SYSTEM QRS Duration 92 ms MUSE SYSTEM Q-T Interval 406 ms MUSE SYSTEM QTC Calculated (Bezet) 401 ms MUSE SYSTEM Calculated P [place] -12 degrees MUSE SYSTEM Calculated R [place] 24 degrees MUSE SYSTEM Calculated T [place] 74 degrees MUSE SYSTEM INTERPRETATION Sinus bradycardia T wave abnormality, consider anterior ischemia Abnormal ECG When compared with ECG of 17-FEB-2024 13:24, [place] interval has decreased T wave inversion now evident in Anterior leads Confirmed by Paul Guzman [id number]) on 03/15/2024 8:36:23 AM MUSE SYSTEM 03/12/2024 2:35 PM EDT 03/15/2024 8:36 AM EDT Zak Farmer MD ECG ORDERABLES [employer] SYSTEM documented in this encounter Visit Diagnoses Diagnosis Coronary artery disease, unspecified vessel or lesion type, unspecified whether angina present, unspecified whether [place] or transplanted heart documented in this encounter Care Teams Aerospace Engineer Relationship Specialty Start Date End Date Vanessa Christian, MAURI PCP - General Family Medicine 10/21/23 05/26/24 documented as of this encounter
--- OUTSIDE RECORDS SUMMARY | 2024-07-30 10:03 | XMS_ITS | Encounter Summary ---
Author Organization [facility] Address [facility] [address] Care Team Providers Care Form Grader Operator Name Role Phone Vanessa Christian MAURI Primary Care Provider [phone] Encounter Details Date Type Department Care Team [...] on filedocumented in this encounter Care Teams Form Grader Operator Relationship Specialty Start Date End Date Vanessa Christian APRN PCP - General Family Medicine 10/21/23 05/26/24 documented as of this encounter
--- OUTSIDE RECORDS SUMMARY | 2024-07-30 10:03 | XMS_ITS | Clinical Summary ---
Author Organization [facility] Address [address] [place] [address] Care Team Providers Care Laborer [employer] Name Role Phone Vanessa Christian NP Primary Care Provider [phone] Social History Tobacco Use Types Packs/Day Years [...] - 1-dose 60+ series) 2019 COVID-19 Vaccine ( season) 2024 Care Teams Laborer [employer] Relationship Specialty Start Date End Date Vanessa Christian NP [address] [place] [phone] PCP - General Family Medicine - Primary Care 10/07/23
--- OUTSIDE RECORDS SUMMARY | 2024-07-30 10:03 | XMS_ITS | Encounter Summary ---
[place] [address] Care Team Providers Care Varnishing Unit Operator Name Role Phone Aparna Jordan MAURI Primary Care Provider [phone] Reason for Referral * Diagnostic Test (Routine) - New Request Specialty Diagnoses / Procedures Referred By Contac t Referred To Contact Cardiology Diagnoses S/P AVR Procedures Echocardiogram Transthoracic Neftali Menon PA [facility] [place] [address] [facility] [place] [address] Referral ID Status Reason Start Date Expiration Date Visits Requested Visits Authorized [id number] New Request Specialty Service Requested 02/24/2024 02/23/2025 1 1 * Consultation (Routine) - Authorized Specialty Diagnoses / Procedures Referred By Contac t Referred To Contact Cardiology Diagnoses S/P AVR Hayder Graham MD [facility] [place] [address] Cardiac Rehab, [facility] [address] [place] [address] [place] [address] Referral ID Status Reason Start Date Expiration Date Visits Requested Visits Authorized [id number] Authorized Consult, Test & Treat 02/24/2024 08/22/2024 36 36 * Home Health Care (Routine) - Authorized Specialty Diagnoses / Procedures Referred By Sixto mendoza Referred To Contact Diagnoses S/P AVR Hayder Graham MD [facility] [place] [address] Referral ID Status Reason Start Date Expiration Date Visits Requested Visits Authorized [id number] Authorized Consult, Test & Treat 02/24/2024 08/22/2024 [...] (WRVU 7.93) Hayder Graham MD [facility] [place] [address] [facility] Referral ID Status Reason Start Date Expiration Date Visits Re quested Visits Authorized [id number] 1 1 Encounter Details Date Type Department Care Team (Latest Contact Info) Description 02/17/2024 5:43 AM EDT - 02/24/2024 11:23 AM EDT Hospital Encounter Heart and Vascular Unit Level 4 [place] [address] Hayder Graham MD [facility] [place] [address] S/P AVR (Primary Dx); Aortic valve stenosis, etiology of cardiac valve disease unspecified Discharge Disposition: Home with VNA Social History Tobacco Use Types Packs/Day Years Used Date Smoking Tobacco: Former Cigarettes Smokeless Tobacco: Never Comments:Quit 15 + years ago Alcohol Use Standard Drinks/Week Comments Yes 0 (1 standard drink = 0.6 oz pur e alcohol) rare [facility] Utilities Answer Date Recorded In [...] Patient Age: 63 y.o. Birthdate: 1960 Language: New Zealander Race: White Ethnicity: Not nor Admit Date: 02/17/2024 Discharge Date: 02/24/24 Attending Physician: Hayder Graham MD Follow-up Recommendations for Providers: Please continue routine management of cardiovascular risk factors including blood pressure, lipids,glucose, etc. Please note any changes to medications. Patient to follow up with PCP, Aparna Jordan APRN, in 1-2 weeks. Patient to follow up with Tare Man, Neftali Ernandez MD , in 2 weeks. Patient to follow up with Cardiac Surgeon, Dr. Hayder Graham, with a chest x-ray, EKG, and Echo. Inpatient Provider Contact Information: 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 Past Surgical History: Procedure Laterality Date PRO CABG, ARTERIAL, SINGLE N/A 02/17/2024 @CABG, USING ARTERIAL GRAFT;SINGLE ARTERIAL GRAFT (WRVU 33.75) performed by Hayder Graham MD at [facility] MAIN OR PRO CABG, ARTERY-VEIN, TWO N/A 02/17/2024 @CABG, TWO VENOUS GRAFTS & ARTERIAL GRAFT (WRVU 7.93) performed by Hayder Graham MD at [facility] MAIN OR PRO ENDOSCOPY W/VIDEO-ASST VEIN HARVEST, CABG Left 02/17/2024 ENDOSCOPIC HARVEST VEIN(S) FOR CABG (WRVU 0.31) performed by Hayder Graham MD at [facility] MAIN OR PRO REPLACEMENT PROSTHETIC AORTIC VALVE OPEN W CARDIOPULMONARY BYPASS HOMOGRF/STENT N/A 02/17/2024 @REPLACE AORTIC VALVE, OPEN, W\CPB, W\PROSTHETIC VALVE (WRVU 41.32) performed by Hayder Graham MD at [facility] MAIN OR Prior To Admission Medications [...] insufficiency. He has glaucoma. He used to [employer] until about 15 years ago. He has undergone prior herniorrhaphy. 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 Major Procedures/Operations: 02/17/24 s/p avr/cabgx3 CABG x 3 JOSE->LAD SVG->dRCA SVG->OM1 EVH from LLE AVR with a 23 mm Inspiris Bioprosthesis Hospital Course: Karlos Garcia was admitted to [facility] on 02/17/2024 via the Same Day Program. [...] Hayder Graham and/or the Cardiac Surgery Physician Manager Of Development Team may be reached at . Antibiotic [...] Please refer to the card with the [place] [employer] Guidelines for more information. You [...] Dr. Hayder Graham. You may use a Magna Track or treadmill but avoid any pulling [...] should resume a low fat, low cholesterol, [place] [employer] Association Diet. Driving: No driving until [...] while being managed by your PCP and/or Tare Man. For future medication refills, please refer to your PCP and/or Tare Man after your discharge from our service. Thank you REMOVE CHEST TUBE SUTURES ON OR AFTER 03/02/24 Home oxygen therapy: N/A Follow up appointments: You should follow up with your PCP, Aparna Jordan APRN, in 1-2 weeks. Our office will schedule an appointment with your Tare Man, Neftali Ernandez MD , in 2 weeks. [...] Future Orders Complete By Expires Echocardiogram Transthoracic [88102 CPT(R)] 03/26/2024 09/25/2024 Process Instructions: Scheduling Instructions: Questions: Where will study be performed?: [facility] Clinics Does the patient have Congenital Heart Disease?: Does patient require sedation?: Sedation rationale: XR Chest PA & Lateral (Generic) [73851 14707 Custom] 03/26/2024 09/25/2024 Process Instructions: Scheduling Instructions: Questions: Portable exam?: Reason for exam and clinical history: s/p avr/cabg Clinical information / jerome questions for radiologist: Stat read required?: Date of injury if applicable: Requested Time: Where will study be performed?: [facility] Radiology Referral to Cardiac Rehab [SZK096 Custom] As directed Process Instructions: If no [...] admission to Home Health. [address] Phone Number: Date of : 1960 Inpatient DOCUMENTATION FOR VNA SERVICES (INCLUDING THOSE PATIENTS WITH MEDICARE COVERAGE REQUIRING HOME VNA SERVICES AND/OR HOSPICE SERVICES) PATIENT'S LOCATION: Karlos Garcia [address] [place] [phone] Airport Ramp Attendant's Name: self/family In discussion with the attending physician, it is certified that this patient is under their care and that they, or a Nurse Practitioner, or Physician Manager Of Development who is working directly with them, hada [...] for services as follows: HOME HEALTH AGENCY: [facility] [address] [place] [address] RN orders: Cardiopulmonary assessment, incisional assessment, assess [...] issues please call the Cardiology Office at [phone] FOR MEDICARE ONLY: (please delete this section [...] APRN [address] / [place] [address] . All VNA agencies which cover the area of patient's residence have been reviewed, either verbally or in writing, and patient/family have chosen the home health care agency noted. Questions: Disciplines Requested: Nursing Physical Therapy Arrangements for VNA/home care: As above. Signed: NEFTALI MENON PA-C [facility] Section of Cardiac Surgery [facility] [address] FAX [phone] Date: 02/24/2024 CC: Aparna Jordan, MAURI Jordan, Aparna Sherman APRN [address] [place] [address] documented in this encounter Discharge Instructions * [...] Hayder Graham and/or the Cardiac Surgery Physician Manager Of Development Team may be reached at . Antibiotic [...] Please refer to the card with the [place] [employer] Guidelines for more information. You [...] Dr. Hayder Graham. You may use a Magna Track or treadmill but avoid any pulling [...] should resume a low fat, low cholesterol, [place] Heart Association Diet. Driving: No driving until [...] while being managed by your PCP and/or Tare Man. For future medication refills, please refer to your PCP and/or Tare Man after your discharge from our service. Thank you REMOVE CHEST TUBE SUTURES ON OR AFTER 03/02/24 Home oxygen therapy: N/A Follow up appointments: You should follow up with your PCP, Aparna Jordan APRN, in 1-2 weeks. Our office will schedule an appointment with your Tare Man, Neftali Ernandez MD , in 2 weeks. [...] 0600 and on the weekends please page [phone]. * Eric Barahona PA - 02/23/2024 9:27 [...] 0600 and on the weekends please page [phone]. * Tiffanie Owens PTA - 02/22/2024 2:48 [...] Pt reports his dtr is coming from [place] to stay upon d/c for 10 days. 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 * Kelley Hinson, DAMPENER OPERATOR - 02/21/2024 10:15 AM EDT Physical [...] Pt reports his dtr is coming from [place] to stay upon d/c for 10 days. 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 * Kelley Hinson PTA - 02/20/2024 3:32 [...] at that time Kelley Hinson PTA Pager: [phone] Physical Therapy Inpatient Rehab Department * Louisa [...] 0600 and on the weekends please page [phone]. * Maris Benavides, PT - 02/19/2024 11:22 [...] Pt reports his dtr is coming from [place] to stay upon d/c for 10 days. 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 Precautions/Special Considerations: [...] outlined inthis evaluation. MARIS BENAVIDES, PT Pager: [phone] Physical Therapy Inpatient Rehabilitation Department Time IN / OUT: 3953-2633 Total Time: 38 (eval) minutes; * Antonio [...] 0600 and on the weekends please page [phone]. * Minnie Begum PA - 02/18/2024 8:25 [...] site CDI with SANJANA wrap Tubes/Lines/Drains: RIJ/PAC, [place], Jacky Ctx, L pleural CT, TPW, Delaney [...] 0600 and on the weekends please page [phone]. * Kim Ha RCP - 02/17/2024 2:25 [...] plan since last visit. Hayder Graham MD [phone] Source Note - Hayder Graham MD - [...] insufficiency. He has glaucoma. He used to [employer] until about 15 years ago. He has [...] given written informed consent. Hayder Graham MD [phone] * Hayder Graham MD - 02/17/2024 7:00 [...] given written informed consent. Hayder Graham MD [phone] documented in this encounter Miscellaneous Notes * [...] information for follow-up Home Health & Hospice, [address] [place] [address] Cardiac Rehab, [address] [place] [address] Transportation: family or friend will provide Functional status prior to admission: Independent Home Environment: Others in the home: alone. Current Living Arrangements: home/apartment/condo. Accessibility Concerns:a few steps to enter 1 floor home. Current Functional Ability: Assistive Person and Equipment DME used at home: none DME Needed at Discharge: N/A Patient is insured through: Primary Insurance: [employer] Payor: [facility] / Plan: [facility] PPO / Product Type: *No Product [...] pain managed with scheduled Tylenol. Worked with [employer]. Ambulated in the roque multiple times during [...] anticipated Patient is insured through: Primary Insurance: [employer] Payor: [facility] / Plan: [facility] PPO / Product Type: *No Product type* / Secondary Insurance: N/A Last Physical Therapy Recommendation: home with home health (Str coming to stay for a week or two upon d/c) with to be determined (owns rolling walker, shower seat) Plan for discharge is: Home w/ Services Outpatient Agency/Support Group Needs: Homecare agency Home Health Services: Physical Therapy, Registered Nurse Agency Referrals: [facility]. [address] [place] [address] Transportation: family or friend will provide Barriers to discharge: Discharge planning Plan going forward: Service Care Management will continue to follow and assist with discharge planning and coordination of care as indicated. 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 (Only good for 180 days) Any patient receiving care in [place] must abide by [place] law. The hierarchy for surrogate decision making [...] (i) The agent with financial power of disability attorney or a conservator appointed in accordance [...] In the past 12 months has the [employer], gas, oil, or water [employer] threatened to shut off services in your [...] confirmed as: [address] [facility] [address] Physical address: [address] [facility], [address] Social & Family Supports: All names listed [...] noted Health/Prescription Coverage: Primary Insurance: [facility] Payor: [facility] / Plan: [facility] PPO / Product Type: *No Product type* / Secondary Insurance: N/A ; Prescription Coverage: Yes Preferred Pharmacy: [id number] AT [address] [address] Romance Status: Patient is a : No Primary Care Provider confirmed: Aparna Jordan, CLINICAL PROGRAM DIRECTOR [phone] Patient/Caregiver Goals of Treatment: dc to home Potential Needs for Transition of Care: home health care Agency Referrals: I have met with the patient to: discuss discharge planning needs. provide the [facility], Office of Care Management letter from the Customer Service Associate pertaining to rehab referrals. provide a letter describing our affiliations within the [facility] and educate about their right to choose where referrals are sent. provide a list of Home Health Agencies / Durable Medical Equipment vendors which serve their preferred geographic area. provided patient with [facility] Star Quality Rating handout. They have requested referrals to: [facility]. [address] [place] [address] Note routed to a Mortgage Broker who will communicate referrals to facilities and [...] daughter, Cielo, will be coming in from [place] on 02/18, to stay with him , [...] Reina Greene RN CM, BSN, CMGT- Ext [phone] * Plan of Care - Binta Trinidad [...] Operative Note Patient Name: Karlos Garcia : [id number] MR#: [id number] Case Date: 02/17/2024 Surgeon: Surgeon(s) and Role: * Hayder Graham MD - Primary * Neftali Menon PA - Physician Manager Of Development Preoperative diagnosis: CAD Postoperative diagnosis: CAD, intraoperative [...] Operative Note Patient Name: Karlos Garcia : [id number] MR#: [id number] Case Date: 02/17/2024 Surgeon: Surgeons and Role: * Hayder Grahma MD - Primary * Neftali Menon PA - Physician Manager Of Development Preoperative diagnosis: CAD Postoperative diagnosis: CAD, intraoperative [...] Mediastinal and Left pleural Disposition: [facility] Procedure Description: The patient was [...] Aortic Valve Open W Cardiopulmonary Bypass Homogrf/Stent (65333) Yes 02/17/2024 7:28 AM EDT CAD Cabg, Artery-Vein, Two (78957) Yes 02/17/2024 7:28 AM EDT CAD Cabg, Arterial, Single (80486) Yes 02/17/2024 7:28 AM EDT CAD Endoscopy W/Video-Asst Vein Renner, Cabg (06224) Yes 02/17/2024 7:28 AM EDT CAD POCT [...] CHEMISTRY ORDERABLE S [facility] [place] [address] * (ABNORMAL) Basic Metabolic Panel (non-fasting) (02/23/2024 [...] MD CHEMISTRY ORDERABLES Performing Organization Address City/[facility]/ZIP Co de Phone Number [facility] [place] [address] * Potassium (02/22/2024 4:30 AM EDT) [facility] Potassium 3.5 3.5 - 5.0 mmol/L GRACE [...] CHEMISTRY ORDERABLE S Performing Organization Address City/[facility]/ZIP Co de Phone Number [facility] [place] [address] * (ABNORMAL) Basic Metabolic Panel (non-fasting) (02/21/2024 [...] LABORATORY Carbon Dioxide Not Perf 22 - [facility] Comment:Add-on request. Samp [...] MD CHEMISTRY ORDERABLES Performing Organization Address City/[facility]/ZIP Co de Phone Number [facility] [place] [address] * Lactate, whole blood, send to lab ([facility]) (02/21/2024 9:45 AM EDT) [facility] Lactate WB 2.0 0.5 - 2.2 mmol/L [facility] Blood 02/21/2024 9:45 AM EDT 02/21/2024 9:52 AM EDT Narrative Resulting Agency Comment Spec In Lab Hayder Graham MD CHEMISTRY ORDERABLE S Performing Organization Address [facility] Co de Phone Number [facility] [place] [address] * (ABNORMAL) Hepatic Function Panel (02/21/2024 9:45 AM EDT) [facility] Protein, Total 5.7(L) 6.1 - 8.0 g/dL [...] CHEMISTRY ORDERABLE S Performing Organization Address City/[facility]/ZIP Co de Phone Number [facility] [place] [address] * Lipase (02/21/2024 9:45 AM EDT) [facility] Lipase 56 0 - 60 unit/L [facility] Blood 02/21/2024 9:45 AM EDT 02/21/2024 9:52 AM EDT Narrative Resulting Agency Comment Spec In Lab Hayder Graham MD CHEMISTRY ORDERABLE S Performing Organization Address [facility] Co de Phone Number [facility] [place] [address] * Amylase (02/21/2024 9:45 AM EDT) Amylase 69 28 - 100 unit/L [facility] Blood 02/21/2024 9:45 AM EDT 02/21/2024 9:52 AM EDT Narrative Resulting Agency Comment Spec In Lab Hayder Graham MD CHEMISTRY ORDERABLE S Performing Organization Address [facility] Phone Number [facility] [place] [address] * Potassium (02/21/2024 3:08 AM EDT) Potassium [...] ORDERABLE S Performing Organization Address [facility] Co de Phone Number [facility] [place] [address] * XR Chest PA & Lateral (Generic) (02/20/2024 10:19 AM EDT) WORKSTATION ID [id number] DH RAD Anatomical Region Laterality Modality Chest N/A Digital Radiogra phy Impressions 02/20/2024 1:11 PM EDT Small pleural effusions. No pneumothorax Thank you for letting us participate in the care of this patient. ??If you are a health care provider and have any questions regarding this report, please contact the number below. ??For patients who have questions please contact the health wound care rn that requested your imaging first. ? Narrative 02/20/2024 1:11 PM EDT EXAMINATION: XR CHEST PA AND LATERAL (GENERIC) CLINICAL HISTORY: s/p AVR/CABGx3 TECHNIQUE: PA and lateral views of the chest COMPARISON: 02/17/2024 FINDINGS: Support devices: Interval removal of [place] catheter, endotracheal tube and mediastinal chest tubes The cardiac silhouette is stable status post median sternotomy, CABG and aortic valve replacement. There are small pleural effusions. No pneumothorax. Procedure Note Rogerio Cruz MD - 02/20/2024 EXAMINATION: XR CHEST PA AND LATERAL (GENERIC) CLINICAL HISTORY: s/p AVR/CABGx3 TECHNIQUE: PA and lateral views of the chest COMPARISON: 02/17/2024 FINDINGS: Support devices: Interval removal of [place] catheter, endotracheal tubeand mediastinal chest tubes The [...] have questions please contactthe health wound care rn that requested your imaging first. Hayder Graham MD IMG DX ORDERABLES * Scan, Peripheral Blood (02/20/2024 4:23 AM EDT) Pathologist [facility] Plat estimate Decreased [facility] RBC Morphology Normal [facility] Blood 02/20/2024 4:23 AM EDT 02/20/2024 4:42 AM EDT Narrative Resulting Agency Comment Spec In Lab Minnie FRENCH HEMATOLOGY CECILIO ALEMAN [facility] [place] [address] * (ABNORMAL) Differential, Automated (02/20/2024 4:23 AM EDT) [facility] Neutrophil % 81.7 % [facility] Neutrophil Absolute 10.37(H) 1.70 - 6.10 x10(3)/mc L [facility] Lymph % 7.4 % [facility] Lymphocytes Abs 0.9 0.9 - 3.2 x10(3)/mc L [facility] Monocyte % 9.7 % [facility] Monocyte Abs 1.2(H) 0.3 - 0.9 x10(3)/mc L [facility] Eos % 0.1 % [facility] Eosinophils Abs 0.0 0.0 - 0.4 x10(3)/mc L [facility] Basophil % 0.2 % [facility] [...] Absolute 0.12(H) 0.00 - 0.04 x10(3)/mc L [facility] Blood 02/20/2024 4:23 AM EDT 02/20/2024 4:42 AM EDT Narrative Resulting Agency Comment Spec In Lab Minnie FRENCH HEMATOLOGY CECILIO ALEMAN [facility] [place] [address] * (ABNORMAL) Hemogram (02/20/2024 4:23 AM EDT) [...] RDW Standard Deviation 43.5 36.0 - 45.0 [facility] RDW coefficient of variation 13.7 11.4 - 13.8 % [facility] Mean Platelet Volume 10.2 7.6 - 12.9 [facility] NRBC% auto 0.0 % [facility] NRBC Absolute 0.000 0.000 - 0.000 x10(3)/mc L [facility] Blood 02/20/2024 4:23 AM EDT 02/20/2024 4:42 AM EDT Narrative Resulting Agency Comment Spec In Lab Minnie FRENCH HEMATOLOGY CECILIO ALEMAN [facility] [place] [address] * (ABNORMAL) Basic Metabolic Panel (non-fasting) (02/20/2024 [...] ORDERABLE S Performing Organization Address [facility] Co de Phone Number [facility] [place] [address] * Potassium (02/19/2024 3:57 AM EDT) Potassium [...] ORDERABLE S Performing Organization Address [facility] Co de Phone Number [facility] [place] [address] * POCT Glucose (02/18/2024 8:24 AM EDT) Glucose, POC 157 65 - 199 mg/dL [facility] Comment: Supplemental ranges: <140 mg/dL before meals <180 mg/dL all other times of the day Blood 02/18/2024 8:24 AM EDT 02/18/2024 8:24 AM EDT Hayder Graham MD POINT OF CARE TEST ORDERABLES [facility] [place] [address] * Scan, Peripheral Blood (02/18/2024 1:40 AM EDT) Plat estimate Decreased [facility] RBC Morphology Normal [facility] Blood 02/18/2024 1:40 AM EDT 02/18/2024 1:56 AM EDT Narrative Resulting Agency Comment Spec In Lab Neftali FRENCH HEMATOLOGY ORDER OLE Performing Organization Address City/[facility]/ZIP Co de Phone Number [facility] [place] [address] * (ABNORMAL) Differential, Automated (02/18/2024 1:40 AM EDT) [facility] [facility] Neutrophil % 87.1 % [facility] Neutrophil Absolute 15.03(H) 1.70 - 6.10 x10(3)/mc L [facility] Lymph % 3.0 % [facility] Lymphocytes Abs 0.5(L) 0.9 - 3.2 x10(3)/mc L [facility] Monocyte % 9.1 % [facility] Monocyte Abs 1.6(H) 0.3 - 0.9 x10(3)/mc L [facility] Eos % 0.0 % [facility] Eosinophils Abs 0.0 0.0 - 0.4 x10(3)/mc L [facility] Basophil % 0.2 % [facility] [...] HEMATOLOGY ORDER OLE [facility] [place] [address] * (ABNORMAL) Hemogram (02/18/2024 1:40 AM EDT) White Blood Cell 17.2(H) 4.0 - 9.5 x10(3)/ L [facility] [...] Platelet 147 145 - 357 x10(3)/ L [facility] RDW Standard Deviation 39.9 36.0 - 45.0 [facility] RDW coefficient of variation 13.2 11.4 - 13.8 % [facility] Mean Platelet Volume 9.9 7.6 - 12.9 fL [facility] NRBC% auto 0.0 % [facility] NRBC Absolute 0.000 0.000 - 0.000 x10(3)/mc L [facility] Blood 02/18/2024 1:40 AM EDT 02/18/2024 1:56 AM EDT Narrative Resulting Agency Comment Spec In Lab Neftali FRENCH HEMATOLOGY ORDER OLE [facility] [place] [address] * (ABNORMAL) Basic Metabolic Panel (non-fasting) (02/18/2024 [...] CHEMISTRY ORDERABLE S Performing Organization Address City/[facility]/ZIP Co de Phone Number [facility] [place] [address] * (ABNORMAL) Troponin (02/18/2024 1:40 AM EDT) Pathologist [facility] [place] Troponin-T, High Sensitivity 342(H) <=22 ng/L [facility] Test Catalog Reference: Fourth [place] Definition of Myocardial Infarction. Journal of the [place] [employer] 2018;72:8496-3585 Blood 02/18/2024 1:40 AM EDT 02/18/2024 1:56 AM EDT Narrative Resulting Agency Comment Spec In Lab Hayder Graham MD CHEMISTRY ORDERABLE S Performing Organization Address City/[facility]/ZIP Co de Phone Number [facility] [place] [address] * POCT Glucose (02/17/2024 8:13 PM EDT) Glucose, POC 142 65 - 199 mg/dL [facility] Comment: Supplemental ranges: <140 mg/dL before meals <180 mg/dL all other times of the day Blood 02/17/2024 8:13 PM EDT 02/17/2024 8:13 PM EDT Hayder Graham MD POINT OF CARE TEST ORDERABLES Performing Organization Address City/[facility]/ZIP Co de Phone Number [facility] [place] [address] * POCT Glucose (02/17/2024 5:42 PM EDT) Glucose, POC 160 65 - 199 mg/dL [facility] Comment: Supplemental ranges: <140 mg/dL before meals <180 mg/dL all other times of the day Blood 02/17/2024 5:42 PM EDT 02/17/2024 5:42 PM EDT Hayder Graham MD POINT OF CARE TEST ORDERABLES Performing Organization Address City/[facility]/ZIP Co de Phone Number [facility] [place] [address] * Hemoglobin (02/17/2024 5:42 PM EDT) Hemoglobin 13.7 13.7 - 16.5 g/dL [facility] Blood 02/17/2024 5:42 PM EDT 02/17/2024 6:10 PM EDT Narrative Resulting Agency Comment Spec In Lab Hayder Graham MD HEMATOLOGY ORDERABL ES [facility] [place] [address] * Potassium (02/17/2024 5:42 PM EDT) Potassium [...] MD CHEMISTRY ORDERABLE S Performing Organization Address City/State/[facility] Co de Phone Number [facility] [place] [address] * (ABNORMAL) BLOOD GAS 2 ARTERIAL (02/17/2024 [...] [facility] FIO2 Art 40 % [facility] PF Ratio Art 195 [facility] Blood 02/17/2024 4:18 PM EDT 02/17/2024 4:18 PM EDT Hayder Graham MD POINT OF CARE TEST ORDERABLES [facility] [place] [phone] * XR Chest One View (02/17/2024 1:44 PM EDT) [employer] WORKSTATION ID [id number] DH RAD Anatomical Region Laterality Modality Chest N/A Digital Radiogra phy Impressions 02/17/2024 2:12 PM EDT 1. ??No definite pleural fluid collection or pneumothorax. 2. ??Right IJ [place]a catheter tip terminates in a descending branch [...] questions please contact the health wound care rn that requested your imaging first. ? Narrative 02/17/2024 2:12 PM EDT EXAMINATION: XR CHEST ONE VIEW CLINICAL HISTORY: s/p avr/cabg eval effusions TECHNIQUE: 1 view of the chest COMPARISON: Chest x-ray 01/09/2024, chest CT 02/03/2024 FINDINGS: ET tube tip terminates 5.2 cm above the carlos. Right IJ [place] catheter tip terminates in a descending branch [...] 5.2 cm above the carlos. Right IJ [place]-Ganzcatheter tip terminates in a descending branch of [...] fluid collection or pneumothorax. 2. Right IJ [place] catheter tip terminates in a descending branch ofthe right pulmonary artery. Suggest catheter retraction. 3. Additional support lines and tubes as above. Thank you for letting us participate in the care of this patient. If youare a health care provider and have any questions regarding this report,please contact the number below. For patients who have questions please contactthe health wound care rn that requested your imaging first. Hayder [...] [facility] FIO2 Art 100 % [facility] PF Ratio Art 320 [facility] Blood 02/17/2024 1:31 PM EDT 02/17/2024 1:31 PM EDT Hayder Graham MD POINT OF CARE TEST ORDERABLES Performing Organization Address City/[facility]/ZIP Co de Phone Number [facility] [place] [address] * (ABNORMAL) Coox2 (02/17/2024 1:21 PM EDT) pO2, Coox [address] [facility] Hgb Blood Gas 13.1(L) 13.7 [...] CARE TEST ORDERABLES Performing Organization Address City/[facility] Co de Phone Number [facility] [place] [address] * (ABNORMAL) BLOOD GAS 2 ARTERIAL (02/17/2024 [...] TEST ORDERABLES Performing Organization Address [facility] Co de Phone Number [facility] [place] [address] * (ABNORMAL) Fibrinogen (02/17/2024 12:10 PM EDT) [...] ORDERABLE S Performing Organization Address [facility] Co de Phone Number [facility] [place] [address] * (ABNORMAL) Thrombin time (02/17/2024 12:10 PM [...] ORDERABLE S Performing Organization Address [facility] de Phone Number [facility] [place] [address] * APTT (02/17/2024 12:10 PM EDT) Partial [...] MD HEMATOLOGY ORDERABLE S Performing Organization Address [facility] de Phone Number [facility] [place] [address] * (ABNORMAL) Prothrombin Time (02/17/2024 12:10 PM [...] ORDERABLE S [facility] [place] [address] * (ABNORMAL) Hemogram (02/17/2024 12:10 PM EDT) [...] RDW Standard Deviation 40.2 36.0 - 45.0 [facility] RDW coefficient of variation 12.8 11.4 - 13.8 % [facility] Mean Platelet Volume 9.5 7.6 - 12.9 fL [facility] NRBC% auto 0.0 % [facility] NRBC Absolute 0.000 0.000 - 0.000 x10(3)/mc L [facility] Blood 02/17/2024 12:1 0 PM EDT 02/17/2024 12:19 PM EDT Narrative Resulting Agency Comment Spec In Lab Tara York MD HEMATOLOGY ORDERABLE S [facility] [place] [address] * (ABNORMAL) BLOOD GAS 2 ARTERIAL (02/17/2024 [...] [facility] Comment: Noted by electronic instrument trades worker. Please note: Patients with WBC >100,000 [...] CARE TEST ORDERABLES [facility] [place] [address] * (ABNORMAL) BLOOD GAS 2 ARTERIAL (02/17/2024 [...] [facility] Comment: Noted by electronic instrument trades worker. Please note: Patients with WBC >100,000 [...] TEST ORDERABLES Performing Organization Address [facility] Co de Phone Number [facility] [place] [address] * (ABNORMAL) Hemoglobin and Hematocrit, blood (02/17/2024 [...] ORDERABL ES Performing Organization Address [facility]/ZIP Co de Phone Number [facility] [place] [address] * (ABNORMAL) Platelet count (02/17/2024 11:04 AM EDT) Platelet 106(L) 145 - 357 x10(3)/mc L [facility] Immature Plt % 1.6 0.0 - 7.4 % [facility] Comment: Limitation of the Immature Platelet Fraction (IPF)-May be less reliable when the platelet count is less than 16u056/uL due to statistical imprecision. The IPF value [...] in a decreased state of production. References: [employer] The Clinical Value of the Immature Platelet Fraction (IPF) in Cell Recovery Document Number 10-1143 03/2011 [employer] The Role of the Immature Platelet Fraction (IPF) in the Differential Diagnosis of Thrombocytopenia, Document [id number] V002/15/14 P002/17 Blood 02/17/2024 11:0 4 AM EDT 02/17/2024 11:12 AM EDT Narrative Resulting Agency Comment Spec In Lab Hayder Graham MD HEMATOLOGY ORDERABL ES Performing Organization Address [facility] Co de Phone Number [facility] [place] [address] * (ABNORMAL) Fibrinogen (02/17/2024 11:04 AM EDT) [...] HEMATOLOGY ORDERABL ES [facility] [place] [address] * (ABNORMAL) BLOOD GAS 2 ARTERIAL (02/17/2024 [...] CARE TEST ORDERABLES [facility] [place] [address] * (ABNORMAL) BLOOD GAS 2 ARTERIAL (02/17/2024 [...] CARE TEST ORDERABLES [facility] [place] [address] * Surgical Pathology Report (02/17/2024 10:01 AM EDT) Final Diagnosis [id number] ? Location: [facility]; [facility]; The signing pathologist has (i) examined the relevant preparation(s) for the specimen(s) and (ii) rendered or confirmed the diagnosis(es). . ?Surgical Pathology DIAGNOSIS Aortic valve leaflets, excision: Valve leaflets with myxoid degeneration, nodular fibrosis and dystrophic calcifications. Electronically signed by: ?Livier Montoya MD Verified: ??02/24/2024 13:49 ??Pathologist Performed at: ??-[facility] Dept. of Pathology, [place] [address] Customer Service Associate: Job Brewer MD, AP, ??IA Certificate: [id number] SPECIMEN(S) SUBMITTED A - Aortic Valve Leaflets, [...] Sections Processing Blocks submitted for decalcification: A1. Swaging Machine Operator sections in 1 cassette labeled A1. ??ajw 02/24/2024 1:49 PM EDT [facility] AORTIC STRUCTURE / Unknown 02/17/2024 10:01 AM EDT 02/17/2024 10:01 AM EDT Hayder Graham MD PATHOLOGY/[place] [address] * Specimen to Pathology (02/17/2024 10:01 AM EDT) AP Specimen 02/17/2024 10:0 1 AM EDT 02/17/2024 10:01 AM EDT Narrative [facility] - 02/17/2024 10:01 AM EDT Specimen requisition ordered. ??Separate Pathology report to follow Hayder Graham MD PATHOLOGY/CYTOLOGY ORDERABLES [facility] [place] [address] * (ABNORMAL) BLOOD GAS 2 ARTERIAL (02/17/2024 [...] CARE TEST ORDERABLES [facility] [place] [address] * (ABNORMAL) BLOOD GAS 2 VENOUS (02/17/2024 9:34 AM EDT) pH, Venous 7.22(Criti marquez) 7.32 - 7.42 [facility] Comment:Noted by electronic instrument trades worker. PCO2, Venous 43 41 - 51 mmHg [facility] Comment:Noted by electronic instrument trades worker. PO2, Venous 57(H) 25 - 40 mmHg [facility] Comment:Noted by electronic instrument trades worker. Bicarbonate, Venous 17.1 mmol/L [facility] Comment:Noted by electronic instrument trades worker. Base Excess, Venous -10.6 mmol/L [facility] Comment:Noted by electronic instrument trades worker. Hgb Blood Gas 11.2(L) 13.7 - 16.5 g/dL [facility] Comment:Noted by electronic instrument trades worker. Oxyhemoglobin, Venous 86.5 % [facility] Comment:Noted by electronic instrument trades worker. Carboxyhemoglob in, Venous 0.3 % [facility] Comment: Noted by electronic instrument trades worker. Nonsmokers: 0.5-1.5% COHB Smokers: Variable, but usually less than 10% Toxic: 20-30% COHB Lethal: Greater than 60% COHB Methemoglobin, Venous 0.0 <=1.5 % [facility] Comment:Noted by electronic instrument trades worker. Na Whole Blood 156(H) 135 - 145 mmol/L [facility] Comment:Noted by electronic instrument trades worker. K Whole Blood 5.5(H) 3.5 - 5.0 mmol/L [facility] Comment: Noted by electronic instrument trades worker. Please note: Patients with WBC >100,000 may have falsely elevated Potassium levels. Contact the Clinical Chemistry Laboratory if there are any questions. ICa Whole Blood 1.03(L) 1.15 - 1.33 mmol/L [facility] Comment: Noted by electronic instrument trades worker. Note: ??Total bilirubin higher than 20 mg/dL may lead to falsely low ionized calcium. CL Whole Blood 100 98 - 107 mmol/L [facility] Comment:Noted by electronic instrument trades worker. Gluc Whole Bld 132 65 - 199 mg/dL [facility] Comment: Noted by electronic instrument trades worker. Diabetes: >=200 mg/dL plus symptoms Lactate WB 1.0 0.5 - 2.2 mmol/L [facility] Comment:Noted by electronic instrument trades worker. Blood Gas Source Venous [facility] Blood 02/17/2024 9:34 AM EDT 02/17/2024 9:34 AM EDT Hayder Graham MD POINT OF CARE TEST ORDERABLES [facility] [place] [address] * (ABNORMAL) BLOOD GAS 2 ARTERIAL (02/17/2024 [...] TEST ORDERABLES Performing Organization Address [facility] Co de Phone Number [facility] [place] [address] * POCT Glucose (02/17/2024 6:38 AM EDT) Glucose, POC 98 65 - 199 mg/dL [facility] Comment: Supplemental ranges: <140 mg/dL before meals <180 mg/dL all other times of the day Blood 02/17/2024 6:38 AM EDT 02/17/2024 6:38 AM EDT Hayder Graham MD POINT OF CARE TEST ORDERABLES Performing Organization Address [facility] Co de Phone Number [facility] [place] [phone] * Transesophageal Echo/OR (02/17/2024 6:33 AM EDT) [...] [facility] post-operative [facility] [...] dose on Sat02/17/24 at 1400, Until Discontinued, [place] teeth and / or gums. Scan the CHG vial in the [employer] Q-Care Oral Care Kit from floor stock. Ventilator-associated pneumonia prophylaxis For use in ICU/Critical care locations ONLY. Obtain kit from Floor Stock location. Scan CHG vial in the [employer] Q-Care Oral Care Kit, Routine Given 02/17/2024 [...] restart at 50% of previous rate. Call melt house supervisor if goal not achieved at [...] 25 mg, Oral, ONCE, 1 dose, On [facility] 02/22/24 at 1000, Routine Given 02/22/2024 10:02 AM EDT 25 mg metoprolol tartrate (Lopressor) tablet 50 mg 50 mg, Oral, EVERY 12 HOURS SCHEDULED (2 times per day), First dose (after last modification) on [facility] 02/22/24 at 2100, Until Discontinued, Hold for [...] PHENYLephrine and/or vasopressin ineffective. Call pager # [phone] if initiated. Titrate to keep systolic blood [...] 2.0 L/min/M2. Maximum volume 2 L. Call melt house supervisor for additional fluid orders: pager #[phone]. Rate/Dose Verify 02/18/2024 8:00 AM EDT 1 mL/hr 1 mL/hr Rate/Dose Verify 02/18/2024 6:00 AM EDT 1 mL/hr 1 mL/hr Rate/Dose Verify 02/18/2024 4:00 AM EDT 1 mL/hr 1 mL/hr sodium chloride 0.9% infusion 10-30 mL/hr, Intravenous, DAILY PRN, Starting on Sat02/17/24 at 1307, Until Sat02/18/24 at 0835, Side port TKO rate, per [facility] nursing protocol. Rate/Dose Verify 02/17/2024 [...] at 1000, Routine 1002 (Given - Provider: nIgrid Menjivar RN) metoprolol tartrate (Lopressor) tablet 50 [...] give IV, Routine 0821 (Given - Provider: Reilyl Vincent RN) 0907 (Given - Provider: Mishel [...] Routine documented in this encounter Care Teams Varnishing Unit Operator Relationship Specialty Start Date End Date Aparna Jordan APRN PCP - General Family Medicine 10/21/23 05/26/24 documented as of this encounter
--- OUTSIDE RECORDS SUMMARY | 2024-07-30 10:04 | XMS_ITS | Encounter Summary ---
[place] [address] Care Team Providers Care Long Goods Drier Name Role Phone Victor M Lafleur MD Primary Care Provider [phone] Reason for Visit * Reason Onset Date Comments Referral 09/20/2023 Encounter Details Date Type Department Care Team (Late st Contact Info) Description 09/20/2023 Telephone Cardiology at [address] [phone] Karen Billy, operator Social History Tobacco Use Types Packs/Day [...] on filedocumented in this encounter Care Teams Long Goods Drier Relationship Specialty Start Date End Date Victor M Lafleur MD PCP - General 10/02/13 10/20/23 documented as of this encounter
--- OUTSIDE RECORDS SUMMARY | 2024-07-30 10:04 | XMS_ITS | Encounter Summary ---
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 Phone Aparna Jordan MAURI Primary Care Provider [phone] Reason for Visit * Auth/Cert (Routine) Specialty [...] GRAFT (WRVU 7.93) Hayder Graham MD [facility] [place] [address] [facility] Referral ID Status Reason Start Date Expiration Date Visits Re quested Visits Authorized [id number] 1 1 Encounter Details Date Type Department Care Team (Late st Contact Info) Description 02/17/2024 7:30 AM EDT - 02/17/2024 1:26 PM EDT Surgery [place] [id number] Hayder Graham MD [facility] [place] [address] ENDOSCOPIC HARVEST VEIN(S) FOR CABG (WRVU 0.31) [...] Patient Age: 63 y.o. Birthdate: 1960 Language: Czech Race: White Ethnicity: Not nor Admit Date: 02/17/2024 Discharge Date: 02/24/24 Attending Physician: Hayder Graham MD Follow-up Recommendations for Providers: Please continue routine management of cardiovascular risk factors including blood pressure, lipids,glucose, etc. Please note any changes to medications. Patient to follow up with PCP, Aparna Jordan APRN, in 1-2 weeks. Patient to follow up with Supervisor Vendor Quality, Neftali Ernandez MD , in 2 weeks. Patient to follow up with Cardiac Surgeon, Dr. Hayder Graham, with a chest x-ray, EKG, and Echo. Inpatient Provider Contact Information: [facility] Section of Cardiac Surgery [facility] [address] FAX [phone] Discharge Diagnoses (Hospital Problems) Primary Diagnoses: /CAD [...] 33.75) performed by Hayder Graham MD at [facility] MAIN OR PRO CABG, ARTERY-VEIN, TWO N/A 02/17/2024 @CABG, TWO VENOUS GRAFTS & ARTERIAL GRAFT (WRVU 7.93) performed by Hayder Graham MD at [facility] MAIN OR PRO ENDOSCOPY W/VIDEO-ASST VEIN HARVEST, CABG Left 02/17/2024 ENDOSCOPIC HARVEST VEIN(S) FOR CABG (WRVU 0.31) performed by Hayder Graham MD at [facility] MAIN OR PRO REPLACEMENT PROSTHETIC AORTIC VALVE OPEN W CARDIOPULMONARY BYPASS HOMOGRF/STENT N/A 02/17/2024 @REPLACE AORTIC VALVE, OPEN, W\CPB, W\PROSTHETIC VALVE (WRVU 41.32) performed by Hayder Graham MD at [facility] MAIN OR Prior To Admission [...] insufficiency. He has glaucoma. He used to bac[facility]ptCare until about 15 years ago. He has undergone prior herniorrhaphy. 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 Major Procedures/Operations: 02/17/24 s/p avr/cabgx3 CABG x 3 JOSE->LAD SVG->dRCA SVG->OM1 EVH from LLE AVR with a 23 mm Inspiris Bioprosthesis Hospital Course: Karlos Garcia was admitted to [facility] on 02/17/2024 via the Same Day Program. He was brought to the operating room where Dr. Hayder rGaham performed a tissue aortic valve replacement and [...] Hayder Graham and/or the Cardiac Surgery Physician Planting Supervisor Team may be reached at . [...] Dr. Hayder Graham. You may use a Gridley Track or treadmill but avoid any pulling [...] while being managed by your PCP and/or Supervisor Vendor Quality. For future medication refills, please refer to your PCP and/or Supervisor Vendor Quality after your discharge from our service. Thank you REMOVE CHEST TUBE SUTURES ON OR AFTER 03/02/24 Home oxygen therapy: N/A Follow up appointments: You should follow up with your PCP, Aparna Jordan APRN, in 1-2 weeks. Our office will schedule an appointment with your Supervisor Vendor Quality, Neftali Ernandez MD , in 2 weeks. [...] Future Orders Complete By Expires Echocardiogram Transthoracic [11170 CPT(R)] 03/26/2024 09/25/2024 Process Instructions: Scheduling Instructions: Questions: Where will study be performed?: [facility] Clin[facility] Does the patient have Congenital Heart Disease?: Does patient require sedation?: Sedation rationale: XR Chest PA & Lateral (Generic) [80005 11276 Custom] 03/26/2024 09/25/2024 Process Instructions: Scheduling Instructions: Questions: Portable exam?: Reason for exam and clinical history: s/p avr/cabg Clinical information / jerome questions for radiologist: Stat read required?: Date of injury if applicable: Requested Time: Where will study be performed?: [facility] Radiology Referral to Cardiac Rehab [ILG376 Custom] As directed Process Instructions: If no [...] to Home Health. [address] Phone Number: Date of : 1960 Inpatient DOCUMENTATION FOR VNA SERVICES (INCLUDING THOSE PATIENTS WITH MEDICARE COVERAGE REQUIRING HOME VNA SERVICES AND/OR HOSPICE SERVICES) PATIENT'S LOCATION: Karlos Garcia [address] [employer] [phone] Certified Orthoptist's Name: self/family In discussion with the attending physician, it is certified that this patient is under their care and that they, or a Nurse Practitioner, or Physician Planting Supervisor who is working directly with them, [...] for services as follows: HOME HEALTH AGENCY: [facility] [address] [place] [id number] RN orders: Cardiopulmonary assessment, incisional assessment, assess [...] issues please call the Cardiology Office at [phone] FOR MEDICARE ONLY: (please delete this section [...] care: As above. Signed: NEFTALI MENON PA-C [facility] Cardiac Surgery [facility] [phone] FAX [phone] Date: 02/24/2024 CC: Aparna Jordan, MAURI Jordan, Aparna Sherman APRN [address] [place] [address] documented in this encounter Discharge Instructions * [...] Hayder Graham and/or the Cardiac Surgery Physician Planting Supervisor Team may be reached at . [...] Dr. Hayder Graham. You may use a Gridley Track or treadmill but avoid any pulling [...] while being managed by your PCP and/or Supervisor Vendor Quality. For future medication refills, please refer to your PCP and/or Supervisor Vendor Quality after your discharge from our service. Thank you REMOVE CHEST TUBE SUTURES ON OR AFTER 03/02/24 Home oxygen therapy: N/A Follow up appointments: You should follow up with your PCP, Aparna Jordan APRN, in 1-2 weeks. Our office will schedule an appointment with your Supervisor Vendor Quality, Neftali Ernandez MD , in 2 weeks. [...] 0600 and on the weekends please page [phone]. * Eric Barahona PA - 02/23/2024 9:27 [...] 0600 and on the weekends please page [phone]. * Tiffanie Owens, CAR RENTAL AGENCY MANAGER - 02/22/2024 2:48 PM EDT Physical Therapy [...] d/c for 10 days. 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 He drives. He works Precautions/Special Considerations: [...] LRAD and supervision Time IN / OUT: 6388-9859 Total Time: 30 minutes; TEFx2 Tiffanie Owens Pager: [phone] Physical Therapy Inpatient Rehabilitation Department * Romeo [...] 0600 and on the weekends please page [phone]. * Kelley Hinson CAR RENTAL AGENCY MANAGER - 02/21/2024 10:15 AM EDT Physical [...] d/c for 10 days. 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 He drives. He works Precautions/Special Considerations: [...] LRAD and supervision Time IN / OUT: 7580-9036 Total Time: 25 minutes; TEF 2 Kelley Hinson PTA Pager: [phone] Physical Therapy Inpatient Rehabilitation Department * Louisa [...] 0600 and on the weekends please page [phone]. * Kelley Hinson PTA - 02/20/2024 3:32 [...] at that time Kelley Hinson PTA Pager: [phone] Physical Therapy Inpatient Rehab Department * Louisa [...] 0600 and on the weekends please page [phone]. * Maris Benavides, PT - 02/19/2024 11:22 [...] d/c for 10 days. 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 He drives. He works. Precautions/Special Considerations: [...] outlined inthis evaluation. MARIS BENAVIDES, PT Pager: [phone] Physical Therapy Inpatient Rehabilitation Department Time IN / OUT: 2081-0550 Total Time: 38 (eval) minutes; * Antonio [...] on the weekends please page [phone]. * Minnie Begum PA - 02/18/2024 8:25 [...] 0600 and on the weekends please page [phone]. * Kim Ha RCP - 02/17/2024 2:25 [...] plan since last visit. Hayder Graham MD [phone] Source Note - Hayder Graham MD - [...] given written informed consent. Hayder Graham MD [phone] * Hayder Graham MD - 02/17/2024 7:00 [...] given written informed consent. Hayder Graham MD [phone] documented in this encounter Miscellaneous Notes * [...] for follow-up Home Health & Hospice, [address] [place] [address] Cardiac Rehab, [address] [place] [address] Transportation: family or friend will provide Functional status prior to admission: Independent Home Environment: Others in the home: alone. Current Living Arrangements: home/apartment/condo. Accessibility Concerns:a few steps to enter 1 floor home. Current Functional Ability: Assistive Person and Equipment DME used at home: none DME Needed at Discharge: N/A Patient is insured through: Primary Insurance: [employer] [id number] Payor: [facility] / Plan: [facility] PPO / Product Type: [...] pain managed with scheduled Tylenol. Worked with [employer]. Ambulated in the roque multiple times during [...] Patient is insured through: Primary Insurance: [facility] Payor: [facility] / Plan: [facility] PPO / Product Type: [...] Services: Physical Therapy, Registered Nurse Agency Referrals: [facility] [address] [place] [address] Transportation: family or friend will provide Barriers to discharge: Discharge planning Plan going forward: Service Care Management will continue to follow and assist with discharge planning and coordination of care as indicated. Anticipated Date of Discharge: 02/22/2024 Rhett Bell RN RN/CM - Cellphone: [phone] Pager: [phone] Covering Service RN/CM * Plan of Care [...] Yang RN - 02/19/2024 10:44 AM EDT [facility] CARDIAC REHABILITATION Karlos Garcia was seen today [...] surrogate would be surrogate decision maker per [place] surrogate decision making law. (Only good for 180 days) Any patient receiving care in [place] must abide by [place] law. The hierarchy for surrogate decision making [...] (i) The agent with financial power of district attorney or a conservator appointed in accordance [...] steady place to sleep or slept in [facility] (including now)?: No In the past 12 months has the [employer], gas, oil, or water [employer] threatened to shut off services in your [...] Home Address confirmed as: [address] [facility] [address] Physical address: [address] [facility], [address] Social & Family Supports: All names listed [...] none noted Health/Prescription Coverage: Primary Insurance: [facility] Payor: [facility] / Plan: [facility] PPO / Product Type: *No Product type* / Secondary Insurance: N/A ; Prescription Coverage: Yes Preferred Pharmacy: [id number] [address] [place] Status: Patient is a : No Primary Care Provider confirmed: Aparna Jordan, MAURI [phone] Patient/Caregiver Goals of Treatment: dc to home Potential Needs for Transition of Care: home health care Agency Referrals: I have met with the patient to: discuss discharge planning needs. provide the [facility], Office of Care Management letter from the Athletic Events Scorer pertaining to rehab referrals. provide a letter describing our affiliations within the [facility] and educate about their right to choose where referrals are sent. provide a list of Home Health Agencies / Durable Medical Equipment vendors which serve their preferred geographic area. provided patient with [facility] Star Quality Rating handout. They have requested referrals to: [facility] [address] [place] [address] Note routed to a President [employer] who will communicate referrals to facilities and [...] Reina Greene RN CM, BSN, CMGT-BC Ext [phone] * Plan of Care - Binta Trinidad [...] Operative Note Patient Name: Karlos Garcia : [id number] MR#: [id number] Case Date: 02/17/2024 Surgeon: Surgeon(s) and Role: * Hayder Graham MD - Primary * Neftali Menon PA - Physician Planting Supervisor Preoperative diagnosis: CAD Postoperative diagnosis: CAD, [...] Graham MD - 02/17/2024 8:20 AM EDT [facility] Operative Note Patient Name: Karlos Garcia : [id number] MR#: [id number] Case Date: 02/17/2024 Surgeon: Surgeons and Role: * Hayder Graham MD - Primary * Neftali Menon PA - Physician Planting Supervisor Preoperative diagnosis: CAD Postoperative diagnosis: CAD, [...] Aortic Valve Open W Cardiopulmonary Bypass Homogrf/Stent (62499) Yes 02/17/2024 7:28 AM EDT CAD Cabg, Artery-Vein, Two (33704) Yes 02/17/2024 7:28 AM EDT CAD Cabg, Arterial, Single (09192) Yes 02/17/2024 7:28 AM EDT CAD Endoscopy W/Video-Asst Vein Anthony, Cabg (85161) Yes 02/17/2024 7:28 AM EDT CAD POCT GLUCOSE Routine 02/17/2024 6:38 AM EDT TRANSESOPHAGEAL ECHOCARDIOGRAM IN THE OR Routine 02/17/2024 6:33 AM EDT Aortic valve stenosis, etiology of cardiac valve disease unspecified LAB SCAN 02/17/2024 12:00 AM EDT IMPLANTABLE DEVICES SCAN 02/17/2024 12:00 AM EDT documented in this encounter Results * Potassium (02/24/2024 4:42 AM EDT) Potassium 4.0 3.5 - 5.0 mmol/L [facility] [...] Lab Hayder Graham MD CHEMISTRY ORDERABLE S [facility] [place] [address] * (ABNORMAL) Basic Metabolic Panel (non-fasting) (02/23/2024 4:24 AM EDT) Glucose 117 65 - 199 mg/dL [facility] Comment:Diabetes: >=200 mg/d L plus symptoms Blood Urea Nitrogen 18 10 - 20 mg/dL [facility] [...] mmol/L [facility] Carbon Dioxide 26 22 - 31 mmol/L [facility] Anion Gap 11 5 - 15 mmol/L [facility] Calcium 8.8 8.5 - 10.5 mg/dL [facility] Est Glomerular Filtration Rate 102 >=60 mL/min/1. 73 m?? [facility] [...] Carpio MD CHEMISTRY ORDERABLES Performing Organization Address [facility] Co de Phone Number [facility] [place] [address] * Potassium (02/22/2024 4:30 AM EDT) Potassium 3.5 3.5 - 5.0 mmol/L [facility] [...] CHEMISTRY ORDERABLE S Performing Organization Address [facility] Co de Phone Number [facility] [place] [address] * (ABNORMAL) Basic Metabolic Panel (non-fasting) (02/21/2024 9:45 AM EDT) Glucose 123 65 - 199 mg/dL [facility] Comment:Diabetes: >=200 mg/d L plus symptoms Blood Urea Nitrogen 22(H) 10 - 20 mg/dL [facility] Creatinine 0.78(L) 0.80 - 1.50 mg/dL [facility] Sodium 140 135 - 145 mmol/L [facility] Potassium 3.9 3.5 - 5.0 mmol/L [facility] Comment: Please note: ??Patients with WBC >100,000 may have falsely elevated Potassium levels. ??For accurate Potassium quantification in these patients send serum separator tube (gold top) for subsequent determinations. ??Contact the Clinical Chemistry Laboratory if there are any questions. Chloride 100 98 - 107 mmol/L [facility] Carbon Dioxide Not Perf 22 - 31 [facility] Comment:Add-on request. Samp le too old to perform test. Anion Gap Unable to Calculate 5 - 15 mmol/L [facility] Calcium 8.6 8.5 - 10.5 mg/dL [facility] Est Glomerular Filtration Rate 100 >=60 mL/min/1 .73 m?? [facility] Comment: This [...] MD CHEMISTRY ORDERABLES [facility] [place] [address] * Lactate, whole blood, send to lab ([facility] (02/21/2024 9:45 AM EDT) Lactate WB 2.0 0.5 - 2.2 mmol/L [facility] Blood 02/21/2024 9:45 AM EDT 02/21/2024 9:52 AM EDT Narrative Resulting Agency Comment Spec In Lab Hayder Graham MD CHEMISTRY ORDERABLE S Performing Organization Address City/[facility]/ZIP Co de Phone Number [facility] [place] [address] * (ABNORMAL) Hepatic Function Panel (02/21/2024 9:45 AM EDT) Pathologist [facility] Protein, Total 5.7(L) 6.1 - 8.0 g/dL [facility] Albumin 3.3 3.2 - 5.2 g/dL [facility] Aspartate Aminotransferase 13 0 - 39 unit/L [facility] Alanine Aminotransferase 16 0 - 55 unit/L [facility] Alkaline Phosphatase 63 40 - 130 unit/L [facility] Bilirubin, Total 0.6 0.2 - 1.3 mg/dL [facility] Bilirubin, Direct 0.2 0.0 - 0.3 mg/dL [facility] Blood 02/21/2024 9:45 AM EDT 02/21/2024 9:52 AM EDT Narrative Resulting Agency Comment Spec In Lab Hayder Graham MD CHEMISTRY ORDERABLE S Performing Organization Address City/[facility]/ZIP Co de Phone Number [facility] [place] [address] * Lipase (02/21/2024 9:45 AM EDT) Pathologist [facility] Lipase 56 0 - 60 unit/L [facility] Blood 02/21/2024 9:45 AM EDT 02/21/2024 9:52 AM EDT Narrative Resulting Agency Comment Spec In Lab Hayder Graham MD CHEMISTRY ORDERABLE S Performing Organization Address [facility] Co de Phone Number [facility] [place] [address] * Amylase (02/21/2024 9:45 AM EDT) Amylase 69 28 - 100 unit/L [facility] Blood 02/21/2024 9:45 AM EDT 02/21/2024 9:52 AM EDT Narrative Resulting Agency Comment Spec In Lab Hayder Graham MD CHEMISTRY ORDERABLE S Performing Organization Address [facility] de Phone Number [facility] [place] [address] * Potassium (02/21/2024 3:08 AM EDT) Pathologist [facility] Potassium 3.8 3.5 - 5.0 mmol/L [facility] [...] CHEMISTRY ORDERABLE S Performing Organization Address [facility] Co de Phone Number [facility] [place] [address] * XR Chest PA & Lateral (Generic) (02/20/2024 10:19 AM EDT) WORKSTATION ID [id number] RAD Anatomical Region Laterality Modality Chest N/A [...] 02/17/2024 FINDINGS: Support devices: Interval removal of Pound-Kaila catheter, endotracheal tube and mediastinal chest tubes The cardiac silhouette is stable status post median sternotomy, CABG and aortic valve replacement. There are small pleural effusions. No pneumothorax. Procedure Note Rogerio Cruz MD - 02/20/2024 EXAMINATION: XR CHEST PA AND LATERAL (GENERIC) CLINICAL HISTORY: s/p AVR/CABGx3 TECHNIQUE: PA and lateral views of the chest COMPARISON: 02/17/2024 FINDINGS: Support devices: Interval removal of Pound-Kaila catheter, endotracheal tubeand mediastinal chest tubes The [...] account director that requested your imaging first. Hayder Graham MD IMG DX ORDERABLES * Scan, Peripheral Blood (02/20/2024 4:23 AM EDT) Plat estimate Decreased [facility] RBC Morphology Normal [facility] Blood 02/20/2024 4:23 AM EDT 02/20/2024 4:42 AM EDT Narrative Resulting Agency Comment Spec In Lab Minnie FRENCH HEMATOLOGY CECILIO ALEMAN [facility] [place] [address] * (ABNORMAL) Differential, Automated (02/20/2024 4:23 AM EDT) Pathologist [facility] Neutrophil % 81.7 % [facility] Neutrophil Absolute 10.37(H) 1.70 - 6.10 x10(3)/mc L [facility] Lymph % 7.4 % [facility] Lymphocytes Abs 0.9 0.9 - 3.2 x10(3)/mc L [facility] Monocyte % 9.7 % [facility] Monocyte Abs 1.2(H) 0.3 - 0.9 x10(3)/mc L [facility] Eos % 0.1 % [facility] Eosinophils Abs 0.0 0.0 - 0.4 x10(3)/mc L [facility] Basophil % 0.2 % [facility] Baso Absolute 0.0 0.0 - 0.1 x10(3)/mc L [facility] Immature Gran % 0.90 % [facility] Comment: Immature granulocytes(IG's)percentage and absolute count will include metamyelocytes, myelocytes, and promyelocytes. Blood smears from CBCs yielding IG's will be scanned manually for concordance. If this scan disagrees with the automated IG or if promyelocytes are noted, a manual differential will be performed. Immature Gran Absolute 0.12(H) 0.00 - 0.04 x10(3)/ L [facility] Blood 02/20/2024 4:23 AM EDT 02/20/2024 4:42 AM EDT Narrative Resulting Agency Comment Spec In Lab Minnie FRENCH HEMATOLOGY CECILIO ALEMAN [facility] [place] [address] * (ABNORMAL) Hemogram (02/20/2024 4:23 AM EDT) White Blood Cell 12.7(H) 4.0 - 9.5 x10(3)/[facility] LABORATORY Red Blood Cell 4.26(L) 4.58 - 5.54 x10(6)/[facility]ATORY Hemoglobin 12.3(L) 13.7 - 16.5 g/dL [facility] Hematocrit 37.1(L) 40.5 - 48.5 % [facility] Mean Cell Volume 87.1 82.9 - 93.1 [facility] Mean Cell Hemoglobin 28.9 27.5 - 32.1 pg [facility] Mean Cell Hemoglobin Concentration 33.2 32.0 - 35.7 g/dL [facility] Platelet 88(L) 145 - 357 x10(3)/[facility] LABORATORY RDW Standard Deviation 43.5 36.0 - 45.0 [facility] RDW coefficient of variation 13.7 11.4 - 13.8 % [facility] Mean Platelet Volume 10.2 7.6 - 12.9 [facility]ORY NRBC% auto 0.0 % [facility] NRBC Absolute 0.000 0.000 - 0.000 x10(3)/ L [facility] Blood 02/20/2024 4:23 AM EDT 02/20/2024 4:42 AM EDT Narrative Resulting Agency Comment Spec In Lab Minnie FRENCH HEMATOLOGY CECILIO ALEMAN [facility] [place] [address] * (ABNORMAL) Basic Metabolic Panel (non-fasting) (02/20/2024 4:23 AM EDT) Glucose 113 65 - 199 mg/dL [facility] Comment:Diabetes: >=200 mg/d L plus symptoms Blood Urea Nitrogen 20 10 - 20 mg/dL [facility] Comment:result rechecked-KS Creatinine 0.71(L) 0.80 - 1.50 mg/dL [facility] Sodium 135 135 - 145 mmol/L [facility] Potassium 3.9 3.5 - 5.0 mmol/L [facility] Comment: Please note: ??Patients with WBC >100,000 may have falsely elevated Potassium levels. ??For accurate Potassium quantification in these patients send serum separator tube (gold top) for subsequent determinations. ??Contact the Clinical Chemistry Laboratory if there are any questions. Chloride 102 98 - 107 mmol/L [facility] Carbon Dioxide 25 22 - 31 mmol/L [facility] Anion Gap 8 5 - 15 mmol/L [facility] Calcium 8.7 8.5 - 10.5 mg/dL [facility] Comment:result rechecked-KS Est Glomerular Filtration Rate 102 >=60 mL/min/1. 73 m?? [facility] [...] Address City/[facility]/ZIP Co de Phone Number [facility] [place] [address] * Potassium (02/19/2024 3:57 AM EDT) Potassium 4.3 3.5 - 5.0 mmol/L [facility] [...] CHEMISTRY ORDERABLE S Performing Organization Address [facility] Co de Phone Number [facility] [place] [address] * POCT Glucose (02/18/2024 8:24 AM EDT) Glucose, POC 157 65 - 199 mg/dL [facility] Comment: Supplemental ranges: <140 mg/dL before meals <180 mg/dL all other times of the day Blood 02/18/2024 8:24 AM EDT 02/18/2024 8:24 AM EDT Hayder Graham MD POINT OF CARE TEST ORDERABLES Performing Organization Address [facility]/ZIP Co de Phone Number [facility] [place] [address] * Scan, Peripheral Blood (02/18/2024 1:40 AM EDT) Plat estimate Decreased [facility] RBC Morphology Normal [facility] Blood 02/18/2024 1:40 AM EDT 02/18/2024 1:56 AM EDT Narrative Resulting Agency Comment Spec In Lab Neftali FRENCH HEMATOLOGY ORDER OLE [facility] [place] [address] * (ABNORMAL) Differential, Automated (02/18/2024 1:40 AM EDT) Neutrophil % 87.1 % [facility] Neutrophil Absolute 15.03(H) 1.70 - 6.10 x10(3)/mc L [facility] Lymph % 3.0 % [facility] Lymphocytes Abs 0.5(L) 0.9 - 3.2 x10(3)/mc L [facility] Monocyte % 9.1 % [facility] Monocyte Abs 1.6(H) 0.3 - 0.9 x10(3)/mc L [facility] Eos % 0.0 % [facility] Eosinophils Abs 0.0 0.0 - 0.4 x10(3)/mc L [facility] Basophil % 0.2 % [facility] Baso Absolute 0.0 0.0 - 0.1 x10(3)/mc L [facility] Immature Gran % 0.60 % [facility] Comment: Immature granulocytes(IG's)percentage and absolute count will include metamyelocytes, myelocytes, and promyelocytes. Blood smears from CBCs yielding IG's will be scanned manually for concordance. If this scan disagrees with the automated IG or if promyelocytes are noted, a manual differential will be performed. Immature Gran Absolute 0.10(H) 0.00 - 0.04 x10(3)/mc L [facility] Blood 02/18/2024 1:40 AM EDT 02/18/2024 1:56 AM EDT Narrative Resulting Agency Comment Spec In Lab Neftali FRENCH HEMATOLOGY ORDER OLE [facility] [place] [address] * (ABNORMAL) Hemogram (02/18/2024 1:40 AM EDT) White Blood Cell 17.2(H) 4.0 - 9.5 x10(3)/mc L [facility] Red Blood Cell 4.71 4.58 - 5.54 x10(6)/mc L [facility] Hemoglobin 13.7 13.7 - 16.5 g/dL [facility] Hematocrit 39.2(L) 40.5 - 48.5 % [facility] Mean Cell Volume 83.2 82.9 - 93.1 fL [facility] Mean Cell Hemoglobin 29.1 27.5 - 32.1 pg [facility] Mean Cell Hemoglobin Concentration 34.9 32.0 - 35.7 g/dL [facility] Platelet 147 145 - 357 x10(3)/mc L [facility] RDW Standard Deviation 39.9 36.0 - 45.0 fL [facility] RDW coefficient of variation 13.2 11.4 - 13.8 % [facility] Mean Platelet Volume 9.9 7.6 - 12.9 fL [facility] NRBC% auto 0.0 % [facility] NRBC Absolute 0.000 0.000 - 0.000 x10(3)/mc L [facility] Blood 02/18/2024 1:40 AM EDT 02/18/2024 1:56 AM EDT Narrative Resulting Agency Comment Spec In Lab Neftali FRENCH HEMATOLOGY ORDER OLE [facility] [place] [address] * (ABNORMAL) Basic Metabolic Panel (non-fasting) (02/18/2024 1:40 AM EDT) Glucose 176 65 - 199 mg/dL [facility] Comment:Diabetes: >=200 mg/d L plus symptoms Blood Urea Nitrogen 10 10 - 20 mg/dL [facility] Creatinine 0.65(L) 0.80 - 1.50 mg/dL [facility] Sodium 135 135 - 145 mmol/L [facility] Potassium 4.2 3.5 - 5.0 mmol/L [facility] Comment: Please note: ??Patients with WBC >100,000 may have falsely elevated Potassium levels. ??For accurate Potassium quantification in these patients send serum separator tube (gold top) for subsequent determinations. ??Contact the Clinical Chemistry Laboratory if there are any questions. Chloride 106 98 - 107 mmol/L [facility] Carbon Dioxide 20(L) 22 - 31 mmol/L [facility] Anion Gap 9 5 - 15 mmol/L [facility] Calcium 7.6(L) 8.5 - 10.5 mg/dL [facility] Est Glomerular Filtration Rate 105 >=60 mL/min/1. 73 m?? [facility] [...] Lab Hayder Graham MD CHEMISTRY ORDERABLE S [facility] [place] [address] * (ABNORMAL) Troponin (02/18/2024 1:40 AM EDT) Troponin-T, High Sensitivity 342(H) <=22 ng/L [facility] Comment: This patient's troponin [...] can be found in the [facility] Laboratory Test Catalog Troponin - [facility] Laboratory Test Catalog Reference: Fourth [place] Definition of Myocardial Infarction. Journal of the [place] [employer] 2018;72:8352-0487 Blood 02/18/2024 1:40 AM EDT 02/18/2024 1:56 AM EDT Narrative Resulting Agency Comment Spec In Lab Hayder Graham MD CHEMISTRY ORDERABLE S [facility] [place] [address] * POCT Glucose (02/17/2024 8:13 PM EDT) Glucose, POC 142 65 - 199 mg/dL [facility] Comment: Supplemental ranges: <140 mg/dL before meals <180 mg/dL all other times of the day Blood 02/17/2024 8:13 PM EDT 02/17/2024 8:13 PM EDT Hayder Graham MD POINT OF CARE TEST ORDERABLES Performing Organization Address [facility] Co de Phone Number [facility] [place] [address] * POCT Glucose (02/17/2024 5:42 PM EDT) Glucose, POC 160 65 - 199 mg/dL [facility] Comment: Supplemental ranges: <140 mg/dL before meals <180 mg/dL all other times of the day Blood 02/17/2024 5:42 PM EDT 02/17/2024 5:42 PM EDT Hayder Graham MD POINT OF CARE TEST ORDERABLES Performing Organization Address [facility] Co de Phone Number [facility] [place] [address] * Hemoglobin (02/17/2024 5:42 PM EDT) [facility] Signature Hemoglobin 13.7 13.7 - 16.5 g/dL [facility] Blood 02/17/2024 5:42 PM EDT 02/17/2024 6:10 PM EDT Narrative Resulting Agency Comment Spec In Lab Hayder Graham MD HEMATOLOGY ORDERABL ES Performing Organization Address [facility] Co de Phone Number [facility] [place] [address] * Potassium (02/17/2024 5:42 PM EDT) [facility] Signature Potassium 4.3 3.5 - 5.0 mmol/L [facility] [...] Lab Hayder Graham MD CHEMISTRY ORDERABLE S [facility] [place] [address] * (ABNORMAL) BLOOD GAS 2 ARTERIAL (02/17/2024 4:18 PM EDT) pH, Arterial 7.34(L) 7.35 - 7.45 [facility] PCO2, Arterial 40 35 - 45 mmHg [facility] PO2, Arterial 78(L) 85 - 104 mmHg [facility] Bicarbonate, Arterial 20.8 20.0 - 26.0 mmol/L [facility] Base Excess, Arterial -5.1(L) -3.0 - 3.0 mmol/L [facility] Hgb Blood Gas 14.6 13.7 - 16.5 g/dL [facility] Oxyhemoglobin, Arterial 93.0(L) 94.0 - 97.0 % [facility] Carboxyhemoglob in, Arterial 0.3 % [facility] Comment: Nonsmokers: 0.5-1.5% COHB Smokers: Variable, but usually less than 10% Toxic: 20-30% COHB Lethal: Greater than 60% COHB Methemoglobin, Arterial 0.8 <=1.5 % [facility] [...] [facility] FIO2 Art 40 % [facility] PF Ratio Art 195 [facility] Blood 02/17/2024 4:18 PM EDT 02/17/2024 4:18 PM EDT Hayder Graham MD POINT OF CARE TEST ORDERABLES [facility] [place] [address] * XR Chest One View (02/17/2024 1:44 PM EDT) [employer] WORKSTATION ID [id number] DH RAD Anatomical Region Laterality Modality Chest N/A Digital Radiogra phy Impressions 02/17/2024 2:12 PM EDT 1. ??No definite pleural fluid collection or pneumothorax. 2. ??Right IJ Pound-Kaila catheter tip terminates in a descending branch [...] 5.2 cm above the carlos. Right IJ Pound-Kaila catheter tip terminates in a descending branch [...] 5.2 cm above the carlos. Right IJ Pound-Ganzcatheter tip terminates in a descending branch of [...] fluid collection or pneumothorax. 2. Right IJ Pound-Kaila catheter tip terminates in a descending branch [...] account director that requested your imaging first. Hayder Graham MD IMG DX ORDERABLES * (ABNORMAL) BLOOD GAS 2 ARTERIAL (02/17/2024 1:31 PM EDT) pH, Arterial 7.35 7.35 - 7.45 [facility] PCO2, Arterial 39 35 - 45 mmHg [facility] PO2, Arterial 320(H) 85 - 104 mmHg [facility] Bicarbonate, Arterial 21.4 20.0 - 26.0 mmol/L [facility] Base Excess, Arterial -4.2(L) -3.0 - 3.0 mmol/L [facility] Hgb Blood Gas 14.1 13.7 - 16.5 g/dL [facility] Oxyhemoglobin, Arterial 97.9(H) 94.0 - 97.0 % [facility] Carboxyhemoglob in, Arterial 0.3 % [facility] Comment: Nonsmokers: 0.5-1.5% COHB Smokers: Variable, but usually less than 10% Toxic: 20-30% COHB Lethal: Greater than 60% COHB Methemoglobin, Arterial 0.7 <=1.5 % [facility] Na Whole Blood 137 135 - 145 mmol/L [facility] K Whole Blood 4.2 3.5 - 5.0 mmol/L [facility] Comment: Please note: Patients with WBC >100,000 may have falsely elevated Potassium levels. Contact the Clinical Chemistry Laboratory if there are any questions. ICa Whole Blood 1.13(L) 1.15 - 1.33 mmol/L [facility] Comment: Note: ??Total bilirubin higher than 20 mg/dL may lead to falsely low ionized calcium. CL Whole Blood 108(H) 98 - 107 mmol/L [facility] Gluc Whole Bld 136 65 - 199 mg/dL [facility] Comment:Diabetes: >=200 mg/d L plus symptoms. Lactate WB 1.1 0.5 - 2.2 mmol/L [facility] FIO2 Art 100 % [facility] PF Ratio Art 320 [facility] Blood 02/17/2024 1:31 PM EDT 02/17/2024 1:31 PM EDT Hayder Graham MD POINT OF CARE TEST ORDERABLES [facility] [place] [address] * (ABNORMAL) Coox2 (02/17/2024 1:21 PM EDT) pO2, Coox 44 mmHg [facility] Hgb Blood Gas 13.1(L) 13.7 - 16.5 g/dL [facility] Oxyhemoglobin, Coox 76.4 % [facility] Carboxyhemoglo bin, Coox 0.3 % [facility] Comment: Nonsmokers: 0.5-1.5% COHB Smokers: Variable, but usually less than 10% Toxic: 20-30% COHB Lethal: Greater than 60% COHB Methemoglobin, Coox 0.8 <=1.5 % [facility] Source Coox Mixed Venous [facility] Blood 02/17/2024 1:21 PM EDT 02/17/2024 1:21 PM EDT Hayder Graham MD POINT OF CARE TEST ORDERABLES Performing Organization Address [facility]/ZIP Co de Phone Number [facility] [place] [address] * (ABNORMAL) BLOOD GAS 2 ARTERIAL (02/17/2024 12:14 PM EDT) pH, Arterial 7.39 7.35 - 7.45 [facility] PCO2, Arterial 40 35 - 45 mmHg [facility] PO2, Arterial 338(H) 85 - 104 mmHg [facility] Bicarbonate, Arterial 23.7 20.0 - 26.0 mmol/L [facility] Base Excess, Arterial -1.3 -3.0 - 3.0 mmol/L [facility] Hgb Blood Gas 11.0(L) 13.7 - 16.5 g/dL [facility] Oxyhemoglobin, Arterial 98.8(H) 94.0 - 97.0 % [facility] Carboxyhemoglob in, Arterial 0.3 % [facility] Comment: Nonsmokers: 0.5-1.5% COHB Smokers: Variable, but usually less than 10% Toxic: 20-30% COHB Lethal: Greater than 60% COHB Methemoglobin, Arterial 0.3 <=1.5 % [facility] Na Whole Blood 135 135 - 145 mmol/L [facility] K Whole Blood 5.1(H) 3.5 - 5.0 mmol/L [facility] Comment: Please note: Patients with WBC >100,000 may have falsely elevated Potassium levels. Contact the Clinical Chemistry Laboratory if there are any questions. ICa Whole Blood 1.13(L) 1.15 - 1.33 mmol/L [facility] Comment: Note: ??Total bilirubin higher than 20 mg/dL may lead to falsely low ionized calcium. CL Whole Blood 106 98 - 107 mmol/L [facility] Gluc Whole Bld 132 65 - 199 mg/dL [facility] Comment:Diabetes: >=200 mg/d L plus symptoms. Lactate WB 1.4 0.5 - 2.2 mmol/L [facility] Blood 02/17/2024 12:1 4 PM EDT 02/17/2024 12:14 PM EDT Hayder Graham MD POINT OF CARE TEST ORDERABLES Performing Organization Address [facility] Co de Phone Number [facility] [place] [address] * (ABNORMAL) Fibrinogen (02/17/2024 12:10 PM EDT) Fibrinogen 154(L) 200 - 393 mg/dL [facility] [...] HEMATOLOGY ORDERABLE S Performing Organization Address [facility] Co de Phone Number [facility] [place] [address] * (ABNORMAL) Thrombin time (02/17/2024 12:10 PM [...] HEMATOLOGY ORDERABLE S Performing Organization Address [facility] Co de Phone Number [facility] [place] [address] * APTT (02/17/2024 12:10 PM EDT) Partial Thromboplastin Time 33 25 - 37 sec [facility] HEMATOLOGY ORDERABLE S Performing Organization Address [facility] Co de Phone Number [facility] [place] [address] * (ABNORMAL) Prothrombin Time (02/17/2024 12:10 PM EDT) Prothrombin Time 16.7(H) 9.4 - 12.5 sec [facility] Comment: OR Result called by ?? LOMARL OR Results read back by: ? alondra pagan at 2024-02-17 12:41:48 International Normalization Ratio 1.5 [facility] Comment: OR [...] Lab Tara York MD HEMATOLOGY ORDERABLE S [facility] [place] [address] * (ABNORMAL) Hemogram (02/17/2024 12:10 PM EDT) White Blood Cell 11.1(H) 4.0 - 9.5 x10(3)/mc L [facility] Red Blood Cell 3.50(L) 4.58 - 5.54 x10(6)/mc L [facility] Hemoglobin 10.4(L) 13.7 - 16.5 g/dL [facility] Hematocrit 30.2(L) 40.5 - 48.5 % [facility] Comment: This result has been called to ALONDRA PAGAN by Eddie López on 02 17 2024 at 1226, and has been read back. Mean Cell Volume 86.3 82.9 - 93.1 fL [facility] Mean Cell Hemoglobin 29.7 27.5 - 32.1 pg [facility] Mean Cell Hemoglobin Concentration 34.4 32.0 - 35.7 g/dL [facility] Platelet 118(L) 145 - 357 x10(3)/mc L [facility] RDW Standard Deviation 40.2 36.0 - 45.0 fL [facility] RDW coefficient of variation 12.8 11.4 - 13.8 % [facility] Mean Platelet Volume 9.5 7.6 - 12.9 fL [facility] NRBC% auto 0.0 % [facility] NRBC Absolute 0.000 0.000 - 0.000 x10(3)/mc L [facility] Blood 02/17/2024 12:1 0 PM EDT 02/17/2024 12:19 PM EDT Narrative Resulting Agency Comment Spec In Lab Tara York MD HEMATOLOGY ORDERABLE S [facility] [place] [address] * (ABNORMAL) BLOOD GAS 2 ARTERIAL (02/17/2024 11:43 AM EDT) pH, Arterial 7.38 7.35 - 7.45 [facility] PCO2, Arterial 40 35 - 45 mmHg [facility] PO2, Arterial 304(H) 85 - 104 mmHg [facility] Bicarbonate, Arterial 23.2 20.0 - 26.0 mmol/L [facility] Base Excess, Arterial -1.9 -3.0 - 3.0 mmol/L [facility] Hgb Blood Gas 11.1(L) 13.7 - 16.5 g/dL [facility] Oxyhemoglobin, Arterial 98.6(H) 94.0 - 97.0 % [facility] Carboxyhemoglob in, Arterial 0.3 % [facility] Comment: Nonsmokers: 0.5-1.5% COHB Smokers: Variable, but usually less than 10% Toxic: 20-30% COHB Lethal: Greater than 60% COHB Methemoglobin, Arterial 0.3 <=1.5 % [facility] Na Whole Blood 133(L) 135 - 145 mmol/L [facility] K Whole Blood 6.2(Critic al) 3.5 - 5.0 mmol/L [facility] Comment: Noted by instrumentation engineer. Please note: Patients with WBC >100,000 may have falsely elevated Potassium levels. Contact the Clinical Chemistry Laboratory if there are any questions. ICa Whole Blood 0.97(L) 1.15 - 1.33 mmol/L [facility] Comment: Note: ??Total bilirubin higher than 20 mg/dL may lead to falsely low ionized calcium. CL Whole Blood 104 98 - 107 mmol/L [facility] Gluc Whole Bld 128 65 - 199 mg/dL [facility] Comment:Diabetes: >=200 mg/d L plus symptoms. Lactate WB 1.1 0.5 - 2.2 mmol/L [facility] Blood 02/17/2024 11:4 3 AM EDT 02/17/2024 11:43 AM EDT Hayder Graham MD POINT OF CARE TEST ORDERABLES [facility] [place] [address] * (ABNORMAL) BLOOD GAS 2 ARTERIAL (02/17/2024 11:08 AM EDT) pH, Arterial 7.38 7.35 - 7.45 [facility] PCO2, Arterial 38 35 - 45 mmHg [facility] PO2, Arterial 334(H) 85 - 104 mmHg [facility] Bicarbonate, Arterial 22.0 20.0 - 26.0 mmol/L [facility] Base Excess, Arterial -3.2(L) -3.0 - 3.0 mmol/L [facility] Hgb Blood Gas 10.8(L) 13.7 - 16.5 g/dL [facility] Oxyhemoglobin, Arterial 98.7(H) 94.0 - 97.0 % [facility] Carboxyhemoglob in, Arterial 0.3 % [facility] Comment: Nonsmokers: 0.5-1.5% COHB Smokers: Variable, but usually less than 10% Toxic: 20-30% COHB Lethal: Greater than 60% COHB Methemoglobin, Arterial 0.3 <=1.5 % [facility] Na Whole Blood 131(L) 135 - 145 mmol/L [facility] K Whole Blood 6.4(Critic al) 3.5 - 5.0 mmol/L [facility] Comment: Noted by instrumentation engineer. Please note: Patients with WBC >100,000 may have falsely elevated Potassium levels. Contact the Clinical Chemistry Laboratory if there are any questions. ICa Whole Blood 0.98(L) 1.15 - 1.33 mmol/L [facility] Comment: Note: ??Total bilirubin higher than 20 mg/dL may lead to falsely low ionized calcium. CL Whole Blood 104 98 - 107 mmol/L [facility] Gluc Whole Bld 127 65 - 199 mg/dL [facility] Comment:Diabetes: >=200 mg/d L plus symptoms. Lactate WB 1.0 0.5 - 2.2 mmol/L [facility] Blood 02/17/2024 11:0 8 AM EDT 02/17/2024 11:08 AM EDT Hayder Graham MD POINT OF CARE TEST ORDERABLES Performing Organization Address [facility] de Phone Number [facility] [place] [address] * (ABNORMAL) Hemoglobin and Hematocrit, blood (02/17/2024 [...] HEMATOLOGY ORDERABL ES Performing Organization Address [facility] de Phone Number [facility] [place] [address] * (ABNORMAL) Platelet count (02/17/2024 11:04 AM EDT) Platelet 106(L) 145 - 357 x10(3)/mc L [facility] Immature Plt % 1.6 0.0 - 7.4 % [facility] Comment: Limitation of the Immature Platelet Fraction (IPF)-May be less reliable when the platelet count is less than 77c433/uL due to statistical imprecision. The IPF value [...] in a decreased state of production. References: [employer] The Clinical Value of the Immature Platelet Fraction (IPF) in Cell Recovery Document Number [id number] 03/2011 [employer] The Role of the Immature Platelet Fraction (IPF) in the Differential Diagnosis of Thrombocytopenia, Document [id number] V002/15/14 Blood 02/17/2024 11:0 4 AM EDT 02/17/2024 11:12 AM EDT Narrative Resulting Agency Comment Spec In Lab Hayder Graham MD HEMATOLOGY ORDERABL ES Performing Organization Address City/[facility]/ZIP Co de Phone Number [facility] [place] [address] * (ABNORMAL) Fibrinogen (02/17/2024 11:04 AM EDT) Fibrinogen 149(L) 200 - 393 mg/dL [facility] MD HEMATOLOGY ORDERABL ES Performing Organization Address City/[facility]/ZIP Co de Phone Number [facility] [place] [address] * (ABNORMAL) BLOOD GAS 2 ARTERIAL (02/17/2024 10:41 AM EDT) pH, Arterial 7.37 7.35 - 7.45 [facility] PCO2, Arterial 44 35 - 45 mmHg [facility] PO2, Arterial 335(H) 85 - 104 mmHg [facility] Bicarbonate, Arterial 24.9 20.0 - 26.0 mmol/L [facility] Base Excess, Arterial -0.4 -3.0 - 3.0 mmol/L [facility] Hgb Blood Gas 11.5(L) 13.7 - 16.5 g/dL [facility] Oxyhemoglobin, Arterial 98.9(H) 94.0 - 97.0 % [facility] Carboxyhemoglob in, Arterial 0.1 % [facility] Comment: Nonsmokers: 0.5-1.5% COHB Smokers: Variable, but usually less than 10% Toxic: 20-30% COHB Lethal: Greater than 60% COHB Methemoglobin, Arterial 0.3 <=1.5 % [facility] Na Whole Blood 132(L) 135 - 145 mmol/L [facility] K Whole Blood 5.9(H) 3.5 - 5.0 mmol/L [facility] Comment: Please note: Patients with WBC >100,000 may have falsely elevated Potassium levels. Contact the Clinical Chemistry Laboratory if there are any questions. ICa Whole Blood 1.02(L) 1.15 - 1.33 mmol/L [facility] Comment: Note: ??Total bilirubin higher than 20 mg/dL may lead to falsely low ionized calcium. CL Whole Blood 104 98 - 107 mmol/L [facility] Gluc Whole Bld 129 65 - 199 mg/dL [facility] Comment:Diabetes: >=200 mg/d L plus symptoms. Lactate WB 1.1 0.5 - 2.2 mmol/L [facility] Blood 02/17/2024 10:4 1 AM EDT 02/17/2024 10:41 AM EDT Hayder Graham MD POINT OF CARE TEST ORDERABLES [facility] [place] [address] * (ABNORMAL) BLOOD GAS 2 ARTERIAL (02/17/2024 10:06 AM EDT) pH, Arterial 7.38 7.35 - 7.45 [facility] PCO2, Arterial 42 35 - 45 mmHg [facility] PO2, Arterial 329(H) 85 - 104 mmHg [facility] Bicarbonate, Arterial 24.7 20.0 - 26.0 mmol/L [facility] Base Excess, Arterial -0.3 -3.0 - 3.0 mmol/L [facility] Hgb Blood Gas 11.0(L) 13.7 - 16.5 g/dL [facility] Oxyhemoglobin, Arterial 99.0(H) 94.0 - 97.0 % [facility] Carboxyhemoglob in, Arterial 0.3 % [facility] Comment: Nonsmokers: 0.5-1.5% COHB Smokers: Variable, but usually less than 10% Toxic: 20-30% COHB Lethal: Greater than 60% COHB Methemoglobin, Arterial 0.3 <=1.5 % [facility] Na Whole Blood 132(L) 135 - 145 mmol/L [facility] K Whole Blood 6.0(H) 3.5 - 5.0 mmol/L [facility] Comment: Please note: Patients with WBC >100,000 may have falsely elevated Potassium levels. Contact the Clinical Chemistry Laboratory if there are any questions. ICa Whole Blood 0.97(L) 1.15 - 1.33 mmol/L [facility] Comment: Note: ??Total bilirubin higher than 20 mg/dL may lead to falsely low ionized calcium. CL Whole Blood 102 98 - 107 mmol/L [facility] Gluc Whole Bld 123 65 - 199 mg/dL [facility] Comment:Diabetes: >=200 mg/d L plus symptoms. Lactate WB 1.1 0.5 - 2.2 mmol/L [facility] Blood 02/17/2024 10:0 6 AM EDT 02/17/2024 10:06 AM EDT Hayder Graham MD POINT OF CARE TEST ORDERABLES Performing Organization Address City/State/[facility] Co de Phone Number [facility] [place] [address] * Surgical Pathology Report (02/17/2024 10:01 AM EDT) Final Diagnosis [id number] ? Location: [facility]; [facility]; The signing pathologist has (i) examined the relevant preparation(s) for the specimen(s) and (ii) rendered or confirmed the diagnosis(es). . ?Surgical Pathology DIAGNOSIS Aortic valve leaflets, excision: Valve leaflets with myxoid degeneration, nodular fibrosis and dystrophic calcifications. Electronically signed by: ?Lindsay FERNANDEZ, Livier Gonzalez Verified: ??02/24/2024 13:49 ??Pathologist Performed at: ??-[facility] Dept. of Pathology, [place] [address] Athletic Events Scorer: Job Brewer MD, FCAP, ??CLIA Certificate: [id number] SPECIMEN(S) SUBMITTED A - Aortic Valve Leaflets, [...] Sections Processing Blocks submitted for decalcification: A1. District Director sections in 1 cassette labeled A1. ??ajw 02/24/2024 1:49 PM EDT [facility] AORTIC STRUCTURE / Unknown 02/17/2024 10:01 AM EDT 02/17/2024 10:01 AM EDT Hayder Graham MD PATHOLOGY/[place] [address] * Specimen to Pathology (02/17/2024 10:01 AM EDT) AP Specimen 02/17/2024 10:0 1 AM EDT 02/17/2024 10:01 AM EDT Narrative [facility] - 02/17/2024 10:01 AM EDT Specimen requisition ordered. ??Separate Pathology report to follow Hayder Graham MD PATHOLOGY/CYTOLOGY ORDERABLES [facility] [place] [address] * (ABNORMAL) BLOOD GAS 2 ARTERIAL (02/17/2024 9:35 AM EDT) pH, Arterial 7.33(L) 7.35 - 7.45 [facility] PCO2, Arterial 35 35 - 45 mmHg [facility] PO2, Arterial 318(H) 85 - 104 mmHg [facility] Bicarbonate, Arterial 17.9(L) 20.0 - 26.0 mmol/L [facility] Base Excess, Arterial -8.0(L) -3.0 - 3.0 mmol/L [facility] Hgb Blood Gas 11.0(L) 13.7 - 16.5 g/dL [facility] Oxyhemoglobin, Arterial 98.8(H) 94.0 - 97.0 % [facility] Carboxyhemoglob in, Arterial 0.3 % [facility] Comment: Nonsmokers: 0.5-1.5% COHB Smokers: Variable, but usually less than 10% Toxic: 20-30% COHB Lethal: Greater than 60% COHB Methemoglobin, Arterial 0.3 <=1.5 % [facility] Na Whole Blood 131(L) 135 - 145 mmol/L [facility] K Whole Blood 5.8(H) 3.5 - 5.0 mmol/L [facility] Comment: Please note: Patients with WBC >100,000 may have falsely elevated Potassium levels. Contact the Clinical Chemistry Laboratory if there are any questions. ICa Whole Blood 0.98(L) 1.15 - 1.33 mmol/L [facility] Comment: Note: ??Total bilirubin higher than 20 mg/dL may lead to falsely low ionized calcium. CL Whole Blood 101 98 - 107 mmol/L [facility] Gluc Whole Bld 122 65 - 199 mg/dL [facility] Comment:Diabetes: >=200 mg/d L plus symptoms. Lactate WB 0.8 0.5 - 2.2 mmol/L [facility] Blood 02/17/2024 9:35 AM EDT 02/17/2024 9:35 AM EDT Hayder Graham MD POINT OF CARE TEST ORDERABLES [facility] [place] [address] * (ABNORMAL) BLOOD GAS 2 VENOUS (02/17/2024 9:34 AM EDT) pH, Venous 7.22(Criti marquez) 7.32 - 7.42 [facility] Comment:Noted by instrumentation engineer. PCO2, Venous 43 41 - 51 mmHg [facility] Comment:Noted by instrumentation engineer. PO2, Venous 57(H) 25 - 40 mmHg [facility] Comment:Noted by instrumentation engineer. Bicarbonate, Venous 17.1 mmol/L [facility] Comment:Noted by instrumentation engineer. Base Excess, Venous -10.6 mmol/L [facility] Comment:Noted by instrumentation engineer. Hgb Blood Gas 11.2(L) 13.7 - 16.5 g/dL [facility] Comment:Noted by instrumentation engineer. Oxyhemoglobin, Venous 86.5 % [facility] Comment:Noted by instrumentation engineer. Carboxyhemoglob in, Venous 0.3 % [facility] Comment: Noted by instrumentation engineer. Nonsmokers: 0.5-1.5% COHB Smokers: Variable, but usually less than 10% Toxic: 20-30% COHB Lethal: Greater than 60% COHB Methemoglobin, Venous 0.0 <=1.5 % [facility] Comment:Noted by instrumentation engineer. Na Whole Blood 156(H) 135 - 145 mmol/L [facility] Comment:Noted by instrumentation engineer. K Whole Blood 5.5(H) 3.5 - 5.0 mmol/L [facility] Comment: Noted by instrumentation engineer. Please note: Patients with WBC >100,000 may have falsely elevated Potassium levels. Contact the Clinical Chemistry Laboratory if there are any questions. ICa Whole Blood 1.03(L) 1.15 - 1.33 mmol/L [facility] Comment: Noted by instrumentation engineer. Note: ??Total bilirubin higher than 20 mg/dL may lead to falsely low ionized calcium. CL Whole Blood 100 98 - 107 mmol/L [facility] Comment:Noted by instrumentation engineer. Gluc Whole Bld 132 65 - 199 mg/dL [facility] Comment: Noted by instrumentation engineer. Diabetes: >=200 mg/dL plus symptoms Lactate WB 1.0 0.5 - 2.2 mmol/L [facility] Comment:Noted by instrumentation engineer. Blood Gas Source Venous [facility] Blood 02/17/2024 9:34 AM EDT 02/17/2024 9:34 AM EDT Hayder Graham MD POINT OF CARE TEST ORDERABLES [facility] [place] [address] * (ABNORMAL) BLOOD GAS 2 ARTERIAL (02/17/2024 8:07 AM EDT) pH, Arterial 7.43 7.35 - 7.45 [facility] PCO2, Arterial 34(L) 35 - 45 mmHg [facility] PO2, Arterial 581(H) 85 - 104 mmHg [facility] Bicarbonate, Arterial 21.7 20.0 - 26.0 mmol/L [facility] Base Excess, Arterial -2.6 -3.0 - 3.0 mmol/L [facility] Hgb Blood Gas 14.5 13.7 - 16.5 g/dL [facility] Oxyhemoglobin, Arterial 99.0(H) 94.0 - 97.0 % [facility] Carboxyhemoglob in, Arterial 0.4 % [facility] Comment: Nonsmokers: 0.5-1.5% COHB Smokers: Variable, but usually less than 10% Toxic: 20-30% COHB Lethal: Greater than 60% COHB Methemoglobin, Arterial 0.3 <=1.5 % [facility] Na Whole Blood 139 135 - 145 mmol/L [facility] K Whole Blood 4.0 3.5 - 5.0 mmol/L [facility] Comment: Please note: Patients with WBC >100,000 may have falsely elevated Potassium levels. Contact the Clinical Chemistry Laboratory if there are any questions. ICa Whole Blood 1.09(L) 1.15 - 1.33 mmol/L [facility] Comment: Note: ??Total bilirubin higher than 20 mg/dL may lead to falsely low ionized calcium. CL Whole Blood 106 98 - 107 mmol/L [facility] Gluc Whole Bld 100 65 - 199 mg/dL [facility] Comment:Diabetes: >=200 mg/d L plus symptoms. Lactate WB 1.3 0.5 - 2.2 mmol/L [facility] Blood 02/17/2024 8:07 AM EDT 02/17/2024 8:07 AM EDT Hayder Graham MD POINT OF CARE TEST ORDERABLES Performing Organization Address City/[facility]/ZIP Co de Phone Number [facility] [place] [address] * POCT Glucose (02/17/2024 6:38 AM EDT) Glucose, POC 98 65 - 199 mg/dL [facility] Comment: Supplemental ranges: <140 mg/dL before meals <180 mg/dL all other times of the day Blood 02/17/2024 6:38 AM EDT 02/17/2024 6:38 AM EDT Hayder Graham MD POINT OF CARE TEST ORDERABLES Performing Organization Address [facility] Co de Phone Number [facility] [place] [address] * Transesophageal Echo/OR (02/17/2024 6:33 AM EDT) [...] [facility] [...] Reilly Vincent RN)[phone] (Given - Provider: Ingrid Menjiavr RN)2056 (Given - Provider: Polo Britton, COLBY) [...] Routine documented in this encounter 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
--- OUTSIDE RECORDS SUMMARY | 2024-07-30 10:04 | XMS_ITS | Encounter Summary ---
Author Organization [facility] Address [facility] Ivana linareseileen [place] [id number] Care Team Providers Care Collar Tacker Name Role Phone Vanessa Christian MAURI Primary Care Provider [phone] Reason for Referral * Consultation (Routine) - Closed Specialty Diagnoses / Procedures Referred By Contac t Referred To Contact Cardiac Surgery Diagnoses Nonrheumatic aortic valve stenosis significant - TAVR ( defers to Card Surg d/t age) Errol Loya MD [facility] [place] [address] Zak Farmer MD [facility] [place] [address] Referral ID Status Reason Start Date Expiration Date V isits Requested Visits Authorized [id number] Closed Consult, Test & Treat 10/21/2023 10/20/2024 1 1 Reason for Visit * Reason Comments Chest Pain Shortness of Breath Aortic Stenosis Encounter Details Date Type Department Care Team (Late st Contact Info) Description 10/21/2023 1:20 PM EST Office Visit Cardiology at [address] [phone] Errol Loya MD [facility] [place] [address] Nonrheumatic aortic valve stenosis Social History Tobacco [...] Diagnosis Aortic stenosis 12/2022 TTE ([facility]): VITA 0.8-0.9 cm2 (MG 28 mmHg, DOI 3.6 m/s, SVI 35 cc/m2). Trace regurgitation. Normal bi-v s/f, no other valve findings Gastroesophageal reflux Nevus of face Right sabianism Hypertension HLD (hyperlipidemia) MEDICATIONS: Current Outpatient Medications [...] the meantime will refer to T at [facility] for further evaluation. Logistics and preliminary review [...] the meantime will refer to T at [facility] for further evaluation. Logistics and preliminary review [...] disorders documented in this encounter Care Teams Collar Tacker Relationship Specialty Start Date End Date Vanessa Christian APRN PCP - General Family Medicine 10/21/23 05/26/24 documented as of this encounter
--- OUTSIDE RECORDS SUMMARY | 2024-07-30 10:04 | XMS_ITS | Encounter Summary ---
Author Organization [facility] [address] Care Team Providers Care Accelerator Operator Name Role Phone Vanessa Christian APRN Primary Care Provider [phone] Encounter Details Date Type Department Care Team [...] on filedocumented in this encounter Care Teams Accelerator Operator Relationship Specialty Start Date End Date Vanessa Christian APRN PCP - General Family Medicine 10/21/23 05/26/24 documented as of this encounter
--- OUTSIDE RECORDS SUMMARY | 2024-07-30 10:04 | XMS_ITS | Encounter Summary ---
Author Organization [facility] Address [facility] [place] [address] Care Team Providers Care Yarding And Folding Machine Operator Name Role Phone Vanessa Christian MAURI Primary Care Provider [phone] Encounter Details Date Type Department Care Team (Late st Contact Info) Description 02/14/2024 Orders [place] [phone] Zak Farmer MD [facility] DR CARDIOTH[place]ACIC [place] [address] Coronary artery disease, unspecified vessel or lesion type, unspecified whether angina present, unspecified whether [place] or transplanted heart (Primary Dx) Social History [...] (Bezet) 401 ms MUSE SYSTEM Calculated P [place] -12 degrees MUSE SYSTEM Calculated R [place] 24 degrees MUSE SYSTEM Calculated T [place] 74 degrees MUSE SYSTEM INTERPRETATION Sinus bradycardia T wave abnormality, consider anterior ischemia Abnormal ECG When compared with ECG of 17-FEB-2024 13:24, [place] interval has decreased T wave inversion now evident in Anterior leads Confirmed by Paul Guzman ([id number]) on 03/15/2024 8:36:23 AM MUSE SYSTEM 03/12/2024 2:35 PM EDT 03/15/2024 8:36 AM EDT Zak Farmer MD ECG ORDERABLES MUSE SYSTEM * XR Chest PA & Lateral (Generic) (03/12/2024 1:42 PM EDT) Pathologist [facility] WORKSTATION ID [id number] [facility] Anatomical Region Laterality Modality Chest N/A [...] biller that requested your imaging first. ? Narrative 03/13/2024 8:28 AM EDT EXAMINATION: XR CHEST PA AND LATERAL (GENERIC) CLINICAL HISTORY: s/p cabg eval effusions I25.10, Atherosclerotic heart disease of [place] coronary artery without angina pectoris TECHNIQUE: PA [...] eval effusions I25.10, Atherosclerotic heart disease of [place] coronary artery withoutangina pectoris TECHNIQUE: PA and [...] medicare biller that requested your imaging first. Zak Farmer MD IMG DX ORDERABLES documented in this encounter Visit Diagnoses Diagnosis Coronary artery disease, unspecified vessel or lesion type, unspecified whether angina present, unspecified whether [place] or transplanted heart- Primary Coronary artery disease, unspecified vessel or lesion type, unspecified whether angina present, unspecified whether [place] or transplanted heart documented in this encounter Care Teams Yarding And Folding Machine Operator Relationship Specialty Start Date End Date Vanessa Christian APRN PCP - General Family Medicine 10/21/23 05/26/24 documented as of this encounter
--- OUTSIDE RECORDS SUMMARY | 2024-07-30 10:04 | XMS_ITS | Encounter Summary ---
Author Organization [facility] [place] [address] Care Team Providers Care Career Guidance Technician Name Role Phone Vanessa Christian APRN Primary Care Provider [phone] Encounter Details Date Type Department Care Team [...] filedocumented in this encounter Care Teams Career Guidance Technician Relationship Specialty Start Date End Date Vanessa Christian APRN PCP - General Family Medicine 10/21/23 05/26/24 documented as of this encounter
--- OUTSIDE RECORDS SUMMARY | 2024-07-30 10:04 | XMS_ITS | Encounter Summary ---
Author Organization [facility] [place] [address] Care Team Providers Care Reception Name Role Phone Vanessa Christian MAURI Primary Care Provider [phone] Reason for Visit * Auth/Cert (Routine) Specialty [...] W RHC (WRVU 5.9) Rima Dickinson MD [facility] [place] [address] [facility] Referral ID Status Reason Start Date Expiration Date Visits Re quested Visits Authorized [id number] 1 1 Encounter Details Date Type Department Care Team (Latest Contact Info) Description 02/03/2024 8:06 AM EDT - 02/03/2024 2:54 PM EDT Hospital Encounter [place] [address] Rima Dickinson MD [facility] [place] [address] Screening for cardiovascular condition; Aortic valve stenosis, [...] lbs Follow-up Visits Follow up with your enterprise resource analyst in 2-4 weeks Access Site 'Black and Blue' and tenderness is expected during the first week Call if you noted a mass (lump) greater than the size of a ellis Call Office with any Questions and if you have any of the following Clarence Lane M.D Interventional Product Controller Immigration Law Specialist #: [phone] * Attachments The following attachments cannot be sent through Care Everywhere. * CAD (Coronary Artery Disease): General Info (Icelandic) * Coronary Angiogram: Post-op (Icelandic) documented in this encounter Medications at Time [...] Pre-Procedure H&P Update: Cardiac Catheterization Karlos Anthony [id number] 1960 Chief Complaint: Aortic stenosis HPI: Mr. [...] is inthe chart Clarence Lane MD Interventional Product Controller 02/03/24 11:48 AM documented in this encounter Miscellaneous Notes * Brief Op Note - Clarence Lane MD - 02/03/2024 12:51 PM EDT Preliminary Cardiac Catheterization Procedure Note: Patient Name: Karlos Anthony : [id number] MR#: [id number] Case Date: 02/03/2024 Immigration Law Specialist: Surgeon(s) and Role: * Saira Lua [...] ? Procedure Date: 02/03/2024 ? A #: [id number] ? Primary Physician: Mogadam, Emad ? Case #: [id number] ? File Name: [id number] ? Catheterization Order Number: [id number] ? [facility] ? Final Report [place], [place] ? Patient Name: ? Karlos Anthony ? ID#: ?[id number] ? : ?1960 ? Procedure Date: ? [...] Karlos Anthony Procedure Date: 02/03/2024 A #: [id number] Primary Physician: Saira Lua Case #: [id number] File Name: [id number] Catheterization Order Number: [id number] [facility] FinalReport [place], [place] Patient Name: Karlos Anthony ID#:[id number] :1960 Procedure Date: February 03, 2024 Case #: [id number] Room: 5 Case Physician: Saira Lua M.D. Start: 12:29 Fellow: Clarence Lane M.D. Admission:02/03/2024 Referring Physician: Zak Famrer M.D. Procedures: * Coronary Angiography History Karlos Anthony is a 63 year old man. He has hypertension. Thepatient's smoking status is Never. He also has hypercholesterolemia managedwith lipid therapy. Prior to the initiation of this procedure, thepatient was designated as ASA Class III. The [facility] clinical frailty scale is 3: [...] (Bezet) 372 ms MUSE SYSTEM Calculated P [place] 59 degrees MUSE SYSTEM Calculated R [place] 34 degrees MUSE SYSTEM Calculated T [place] 63 degrees MUSE SYSTEM INTERPRETATION Sinus bradycardia [...] MD) documented in this encounter Care Teams Reception Relationship Specialty Start Date End Date Vanessa Christian APRN PCP - General Family Medicine 10/21/23 05/26/24 documented as of this encounter
--- OUTSIDE RECORDS SUMMARY | 2024-07-30 10:04 | XMS_ITS | Encounter Summary ---
Author Organization [facility] [place] [address] Care Team Providers Care Steel Shot Header Operator Name Role Phone Vanessa Christian APRN Primary Care Provider [phone] Encounter Details Date Type Department Care Team (Late st Contact Info) Description 10/21/2023 Abstract Cardiology at [address] [place] [phone] Adam Mayes RN Social History Tobacco Use [...] filedocumented in this encounter Care Teams Steel Shot Header Operator Relationship Specialty Start Date End Date Vanessa Christian APRN PCP - General Family Medicine 10/21/23 05/26/24 documented as of this encounter
--- OUTSIDE RECORDS SUMMARY | 2024-07-30 10:04 | XMS_ITS | Encounter Summary ---
Author Organization [facility] [place] [place] [address] Care Team Providers Care Human Resources Coordinator Name Role Phone Vanessa Christian MAURI Primary Care Provider [phone] Reason for Visit * Auth/Cert (Routine) Specialty [...] MD [facility] CARDIOTH[place]AC[place] [address] [facility] Referral ID Status Reason Start Date Expiration Date Visits Re quested Visits Authorized [id number] 1 1 Encounter Details Date Type Department Care Team (Late st Contact Info) Description 02/17/2024 7:35 AM EDT Anesthesia Event Main Operating [place] [address] [place] [phone] Roman York MD [facility] [place] [address] Anesthesia Record Procedure Summary Procedure Name Responsible [...] by Sadiq Woo RN PIV 02/17/24; 0715; lhow-omj-oijugl catheter system; 18 gauge; cephalic vein (lateral [...] recording.; [facility]; 02/18/24; 1030 02/17/24 0808 by Roamn York MD 02/18/24 1030 by Sadiq Woo [...] th e electric, gas, oil, or water [employer] threatened to shut off services in your [...] Procedure Summary Date: 02/17/24 Room / Location: [facility] OR [address] [place] [address] MAIN OR Anesthesia Start: 734 Anesthesia Stop: [...] include unfiled device data. Patient Location: [facility] Level of Consciousness: Sedated (Pharmacologic/Intentional) Pain [...] 08/14/2023 ??? Nevus of face 09/26/2023 Right tenriism No past surgical history on file. Social [...] mg documented in this encounter Care Teams Human Resources Coordinator Relationship Specialty Start Date End Date Vanessa Christian APRN PCP - General Family Medicine 10/21/23 05/26/24 documented as of this encounter
--- OUTSIDE RECORDS SUMMARY | 2024-07-30 10:04 | XMS_ITS | Encounter Summary ---
Author Organization [facility] [place] [address] Care Team Providers Care Director Of Strategic Sourcing Name Role Phone Vanessa Christian APRN Primary Care Provider [phone] Encounter Details Date Type Department Care Team (Late st Contact Info) Description 10/21/2023 Abstract Cardiology at [address] [place] [phone] Adam Mayes RN Social History Tobacco Use [...] in this encounter Care Teams Director Of Strategic Sourcing Relationship Specialty Start Date End Date Vanessa Christian APRN PCP - General Family Medicine 10/21/23 05/26/24 documented as of this encounter
--- OUTSIDE RECORDS SUMMARY | 2024-07-30 10:04 | XMS_ITS | Encounter Summary ---
Author Organization [facility] [place] [address] Care Team Providers Care Service Counselor Name Role Phone Vanessa Christian APRN Primary Care Provider [phone] Encounter Details Date Type Department Care Team (Late st Contact Info) Description 12/26/2023 Notes Only Cardiology at [address] [place] [address] Neftali Ernandez MD [facility] [place] [address] Social History Tobacco Use Types Packs/Day Years [...] 1:37 PM EDT [facility] Indeed, the aortic valve appears severely stenotic. Cannotrule out bicuspid valve documented in this encounter Plan of Treatment Not on file documented as of this encounter Visit Diagnoses Not on filedocumented in this encounter Care Teams Service Counselor Relationship Specialty Start Date End Date Vanessa Christian APRN PCP - General Family Medicine 10/21/23 05/26/24 documented as of this encounter
--- OUTSIDE RECORDS SUMMARY | 2024-07-30 10:04 | XMS_ITS | Encounter Summary ---
Author Organization [facility] Address [facility] [place] [address] Care Team Providers Care Consumer Services Advisor Name Role Phone Vanessa Christian MAURI Primary Care Provider [phone] Encounter Details Date Type Department Care Team (Latest Contact Info) Description 01/09/2024 3:02 PM EDT - 01/09/2024 11:59 PM EDT Hospital Encounter XRay at [address] [place] [address] Zak Farmer MD [facility] [place] [address] Nonrheumatic aortic valve stenosis Discharge Disposition: Home Social History Tobacco Use Types Packs/Day Years Used Date Smoking Tobacco: Former Cigarettes Smokeless Tobacco: Never Comments:Quit 15 + years ago Alcohol Use Standard Drinks/Week Comments Yes 0 (1 standard drink = 0.6 oz pur e alcohol) rare [facility] Inpatient Questions Answer Date Recorded Prevent Contact [...] who have questions please contact the health veterinarian laboratory animal care that requested your imaging first. ? [...] patients who have questions please contactthe health veterinarian laboratory animal care that requested your imaging first. Zak Farmer MD IMG DX ORDERABLES documented in this encounter Visit Diagnoses Diagnosis Nonrheumatic aortic valve stenosis Aortic valve disorders documented in this encounter Care Teams Consumer Services Advisor Relationship Specialty Start Date End Date Vanessa Christian APRN PCP - General Family Medicine 10/21/23 05/26/24 documented as of this encounter
--- OUTSIDE RECORDS SUMMARY | 2024-07-30 10:04 | XMS_ITS | Encounter Summary ---
Author Organization [facility] [place] [address] Care Team Providers Care Stack Supervisor Name Role Phone Vanessa Christian APRN Primary Care Provider [phone] Encounter Details Date Type Department Care Team (Late st Contact Info) Description 01/10/2024 Orders [place] [phone] Lawson Napoles [place] [facility] [place] [address] Screening for cardiovascular condition; Aortic valve stenosis, [...] unspecified documented in this encounter Care Teams Stack Supervisor Relationship Specialty Start Date End Date Vanessa Christian APRN PCP - General Family Medicine 10/21/23 05/26/24 documented as of this encounter
--- OUTSIDE RECORDS SUMMARY | 2024-07-30 10:04 | XMS_ITS | Encounter Summary ---
Author Organization [facility] [place] [address] Care Team Providers Care Clinical Biochemical Geneticist Name Role Phone Vanessa Christian Lane DOTSON Primary Care Provider [phone] Encounter Details Date Type Department Care Team (Latest Contact Info) Description 01/09/2024 3:00 PM EDT [place] [phone] Nonrheumatic aortic valve stenosis Social History Tobacco Use Types Packs/Day Years Used Date Smoking Tobacco: Former Cigarettes Smokeless Tobacco: Never Comments:Quit 15 + years ago Alcohol Use Standard Drinks/Week Comments Yes 0 (1 standard drink = 0.6 oz pur e alcohol) rare [facility] Inpatient Questions Answer Date Recorded Prevent Contact [...] TYPE AND SCREEN, SDP (FUTURE SURGERY, [facility] SAME DAY PROGRAM ONLY) Routine 01/09/2024 2:58 [...] Emergency Department ABORH Recheck Order Order Placed [facility] ABORH Type Recheck Completed [facility] Blood 01/09/2024 2:58 PM EDT 01/09/2024 3:08 PM EDT Narrative Resulting Agency Comment Spec In Lab Zak Farmer MD BLOOD BANK LAB ORDE ASH [facility] [place] [address] * Differential, Automated (01/09/2024 2:58 PM EDT) Neutrophil % 70.5 % [facility] Neutrophil Absolute 4.34 1.70 - 6.10 x10(3)/[facility] Lymph % 18.9 % [facility] Lymphocytes Abs 1.2 0.9 - 3.2 x10(3)/[facility] Monocyte % 8.0 % [facility] Monocyte Abs 0.5 0.3 - 0.9 x10(3)/[facility] Eos % 1.6 % [facility] Eosinophils Abs 0.1 0.0 - 0.4 x10(3)/[facility] Basophil % 0.5 % [facility] Baso Absolute 0.0 0.0 - 0.1 x10(3)/[facility] Immature Gran % 0.50 % [facility] Comment: Immature granulocytes(IG's)percentage and absolute count will include metamyelocytes, myelocytes, and promyelocytes. Blood smears from CBCs yielding IG's will be scanned manually for concordance. If this scan disagrees with the automated IG or if promyelocytes are noted, a manual differential will be performed. Immature Gran Absolute 0.03 0.00 - 0.04 x10(3)/[facility] Blood 01/09/2024 2:58 PM EDT 01/09/2024 3:03 PM EDT Narrative Resulting Agency Comment Spec In Lab Zak Farmer MD HEMATOLOGY ORDERABL ES [facility] [place] [address] * Hemogram (01/09/2024 2:58 PM EDT) White Blood Cell 6.2 4.0 - 9.5 x10(3)/[facility] Red Blood Cell 5.53 4.58 - 5.54 x10(6)/[facility] Hemoglobin 16.1 13.7 - 16.5 g/dL [facility] Hematocrit 46.9 40.5 - 48.5 % [facility] Mean Cell Volume 84.8 82.9 - 93.1 fL [facility] Mean Cell Hemoglobin 29.1 27.5 - 32.1 pg [facility] Mean Cell Hemoglobin Concentration 34.3 32.0 - 35.7 g/dL [facility] Platelet 187 145 - 357 x10(3)/[facility] RDW Standard Deviation 39.2 36.0 - 45.0 [facility] RDW coefficient of variation 12.6 11.4 - 13.8 % [facility] Mean Platelet Volume 9.5 7.6 - 12.9 [facility] NRBC% auto 0.0 % [facility] NRBC Absolute 0.000 0.000 - 0.000 x10(3)/[facility] Blood 01/09/2024 2:58 PM EDT 01/09/2024 3:03 PM EDT Narrative Resulting Agency Comment Spec In Lab Zak Farmer MD HEMATOLOGY ORDERABL ES [facility] [place] [address] * Basic Metabolic Panel (non-fasting) (01/09/2024 2:58 [...] MD CHEMISTRY ORDERABLE S Performing Organization Address [facility] Co de Phone Number [facility] [place] [address] * Hepatic Function Panel (01/09/2024 2:58 PM [...] MD CHEMISTRY ORDERABLE S Performing Organization Address [facility] Co de Phone Number [facility] [place] [address] * Prothrombin Time (01/09/2024 2:58 PM EDT) [...] Organization Address City/[facility]/ZIP Co de Phone Number [facility] [place] [address] * Type and Screen Future Surgery, [facility] [...] Farmer MD BLOOD BANK LAB ORDE RABLES [facility] [place] [address] documented in this encounter Visit Diagnoses Diagnosis Nonrheumatic aortic valve stenosis Aortic valve disorders documented in this encounter Care Teams Clinical Biochemical Geneticist Relationship Specialty Start Date End Date Vanessa Christian APRN PCP - General Family Medicine 1/15/24 8/20/24 documented as of this encounter
--- OUTSIDE RECORDS SUMMARY | 2024-07-30 10:04 | XMS_ITS | Encounter Summary ---
Author Organization [facility] Address [facility] [place] [address] Care Team Providers Care Record Press Operator Name Role Phone Vanessa Christian MAURI Primary Care Provider [phone] Reason for Visit * Consultation (Routine) - Closed Specialty Diagnoses / Procedures Referred By Contac t Referred To Contact Cardiac Surgery Diagnoses Nonrheumatic aortic valve stenosis significant - TAVR ( defers to Card Surg d/t age) Neftali Ernandez MD [facility] [place] [address] Zak Farmer MD [facility] [place] [address] Referral ID Status Reason Start Date Expiration Date V isits Requested Visits Authorized [id number] Closed Consult, Test & Treat 10/21/2023 10/20/2024 1 1 Encounter Details Date Type Department Care Team (Late st Contact Info) Description 01/09/2024 1:40 PM EDT Office [place] [address] Zak Farmer MD [facility] [place] [address] Nonrheumatic aortic valve stenosis Social [...] office. Best personal regards, Zak Farmer MD [phone] In aggregate 55 minutes were spent evaluating [...] who have questions please contact the health physician primary care sports medicine that requested your imaging first. ? Narrative [...] patients who have questions please contactthe health physician primary care sports medicine that requested your imaging first. Zak Farmer [...] CHEMISTRY ORDERABLE S [facility] [place] [address] * Hepatic Function Panel (01/09/2024 2:58 PM [...] MD CHEMISTRY ORDERABLE S Performing Organization Address [facility] Co de Phone Number [facility] [place] [address] * Prothrombin Time (01/09/2024 2:58 PM EDT) [...] MD HEMATOLOGY ORDERABL ES Performing Organization Address [facility] Co de Phone Number [facility] [place] [address] * Type and Screen Future Surgery, [facility] SAME DAY PROGRAM ONLY) (01/09/2024 2:58 PM EDT) ABORH Type O NEGATIVE [facility] Patient BB History Not Found [facility] Expires at [id number] on: 02-20-2024 [facility] Ab Screen Interp Negative [facility] Blood 01/09/2024 2:58 PM EDT 01/09/2024 2:58 PM EDT Narrative Resulting Agency Comment Spec In Lab Zak Farmer MD BLOOD BANK LAB ORDE ASH Performing Organization Address City/State/[facility] Co de Phone Number [facility] [place] [address] documented in this encounter Visit Diagnoses Diagnosis Nonrheumatic aortic valve stenosis Aortic valve disorders Nonrheumatic aortic valve stenosis Aortic valve disorders documented in this encounter Care Teams Record Press Operator Relationship Specialty Start Date End Date Vanessa Christian, RUBBER [employer] POUNDER PCP - General Family Medicine 10/21/23 05/26/24 documented as of this encounter
--- OUTSIDE RECORDS SUMMARY | 2024-07-30 10:04 | XMS_ITS | Encounter Summary ---
Author Organization [facility] [place] [address] Care Team Providers Care Academic Affairs Assistant Name Role Phone Vanessa Christian APRN Primary Care Provider [phone] Encounter Details Date Type Department Care Team [...] on filedocumented in this encounter Care Teams Academic Affairs Assistant Relationship Specialty Start Date End Date Vanessa Christian APRN PCP - General Family Medicine 10/21/23 05/26/24 documented as of this encounter
--- OUTSIDE RECORDS SUMMARY | 2024-07-30 10:04 | XMS_ITS | Encounter Summary ---
Author Organization [place] [address] Care Team Providers Care Avionics Systems Integration Specialist Name Role Phone Vanessa Christian Lane DOTSON Primary Care Provider [phone] Reason for Referral * Diagnostic Test (Routine) - Closed Specialty Diagnoses / Procedures Referred By Contac t Referred To Contact Radiology Diagnoses Nonrheumatic aortic valve stenosis Procedures CT Chest wo Contrast (Generic) Louisa Cho PA [facility] [place] [address] [facility] [place] [address] Referral ID Status Reason Start Date Expiration Date V isits Requested Visits Authorized [id number] Closed Specialty Service Requested 01/10/2024 07/11/2025 1 1 Reason for Visit * Diagnostic Test (Routine) - Closed Specialty Diagnoses / Procedures Referred By Contac t Referred To Contact Radiology Diagnoses Nonrheumatic aortic valve stenosis Procedures CT Chest wo Contrast (Generic) Louisa Cho PA [facility] [place] [address] [facility] [place] [address] Referral ID Status Reason Start Date Expiration Date V isits Requested Visits Authorized [id number] Closed Specialty Service Requested 01/10/2024 07/11/2025 1 1 Encounter Details Date Type Department Care Team (Latest Contact Info) Description 02/03/2024 7:36 AM EDT - 02/03/2024 8:05 AM EDT Hospital Encounter CT Scan at [facility] [place] [address] Zak Farmer MD [facility] [place] [address] Nonrheumatic aortic valve stenosis Discharge Disposition: Home Social History Tobacco Use Types Packs/Day Years Used Date Smoking Tobacco: Former Cigarettes Smokeless Tobacco: Never Comments:Quit 15 + years ago Alcohol Use Standard Drinks/Week Comments Yes 0 (1 standard drink = 0.6 oz pur e alcohol) rare [facility] Inpatient Questions Answer Date Recorded Does Anyone [...] wo Contrast (Generic) (02/03/2024 7:44 AM EDT) [employer] Signature WORKSTATION ID [id number] RAD Anatomical Region Laterality Modality Chest Computed [...] who have questions please contact the health skin care therapist that requested your imaging first. ? Electronically signed by: Rogerio Wright MD, [facility] ([phone]), at 02/03/2024 10:00 AM Narrative 02/03/2024 10:00 [...] patients who have questions please contactthe health skin care therapist that requested your imaging first. Electronically signed by: Rogerio Wright MD, [facility]([phone]), at 02/03/2024 10:00 AM Zak Farmer MD IMG CT ORDERABLES documented in this encounter Visit Diagnoses Diagnosis Nonrheumatic aortic valve stenosis Aortic valve disorders documented in this encounter Care Teams Avionics Systems Integration Specialist Relationship Specialty Start Date End Date Vanessa Christian APRN PCP - General Family Medicine 10/21/23 05/26/24 documented as of this encounter
--- OUTSIDE RECORDS SUMMARY | 2024-07-30 10:04 | XMS_ITS | Encounter Summary ---
Author Organization [facility] [place] [address] Care Team Providers Care Histologist Name Role Phone Victor M Lafleur MD Primary Care Provider [phone] Encounter Details Date Type Department Care Team (Late st Contact Info) Description 09/26/2023 Abstract Cardiology at [address] [address] Karen Billy, RN Nonrheumatic aortic [...] face documented in this encounter Care Teams Histologist Relationship Specialty Start Date End Date Victor M Lafleur MD PCP - General 10/02/13 10/20/23 documented as of this encounter
--- OUTSIDE RECORDS SUMMARY | 2024-07-30 10:04 | XMS_ITS | Encounter Summary ---
Author Organization [facility] Address [facility] [place] [address] Care Team Providers Care Provider Relations Rep Name Role Phone Vanessa Christian [employer] Primary Care Provider [phone] Reason for Referral * Diagnostic Test (Routine) - Closed Specialty Diagnoses / Procedures Referred By Contac t Referred To Contact Radiology Diagnoses Nonrheumatic aortic valve stenosis Procedures CT Chest wo Contrast (Generic) Louisa Reid PA [facility] [place] [address] [facility] [place] [address] Referral ID Status Reason Start Date Expiration Date V isits Requested Visits Authorized [id number] Closed Specialty Service Requested 01/10/2024 07/11/2025 1 1 Encounter Details Date Type Department Care Team (Late st Contact Info) Description 01/09/2024 Orders [place] [address] Zak Farmer MD [facility] [place] [address] Nonrheumatic aortic valve stenosis Social History Tobacco [...] wo Contrast (Generic) (02/03/2024 7:44 AM EDT) [employer] WORKSTATION ID [id number] RAD Anatomical Region Laterality Modality Chest Computed [...] who have questions please contact the health pharmacist critical care that requested your imaging first. ? Electronically signed by: Rogerio Wright MD, [facility] ([phone]), at 02/03/2024 10:00 AM Narrative 02/03/2024 10:00 [...] nodule along the minor fissure (series [id number]) and a 8 mm right lower lobe [...] patients who have questions please contactthe health pharmacist critical care that requested your imaging first. Electronically signed by: Rogerio Wright MD, [facility]([phone]), at 02/03/2024 10:00 AM Zak Farmer MD IMG CT ORDERABLES documented in this encounter Visit Diagnoses Diagnosis Nonrheumatic aortic valve stenosis Aortic valve disorders Nonrheumatic aortic valve stenosis Aortic valve disorders documented in this encounter Care Teams Provider Relations Rep Relationship Specialty Start Date End Date Vanessa Christian APRN PCP - General Family Medicine 10/21/23 05/26/24 documented as of this encounter
--- OUTSIDE RECORDS SUMMARY | 2024-07-30 10:04 | XMS_ITS | Encounter Summary ---
Author Organization [facility] [place] [address] Care Team Providers Care Urology Physician Assistant Name Role Phone Vanesas Christian Lane DOTSON Primary Care Provider [phone] Encounter Details Date Type Department Care Team (Late st Contact Info) Description 01/09/2024 2:30 PM EDT Clinical Support Same Day at [facility] [place] [phone] Social History Tobacco Use Types Packs/Day Years Used Date Smoking Tobacco: Former Cigarettes Smokeless Tobacco: Never Comments:Quit 15 + years ago Alcohol Use Standard Drinks/Week Comments Yes 0 (1 standard drink = 0.6 oz pur e alcohol) rare [facility] Inpatient Questions Answer Date Recorded Prevent Contact [...] you tube link for a video about [facility] cardiac surgery. Instructed to bring [...] type and screen performed while in the [facility]. Sent to Radiology for chest x-ray. Special medication instructions: None Procedure date: not booked. Darian documented in this encounter Plan of Treatment Not on file documented as of this encounter Visit Diagnoses Not on filedocumented in this encounter Care Teams Urology Physician Assistant Relationship Specialty Start Date End Date Vanessa Christian APRN PCP - General Family Medicine 10/21/23 05/26/24 documented as of this encounter
--- OUTSIDE RECORDS SUMMARY | 2024-07-30 10:04 | XMS_ITS | Encounter Summary ---
[place] [address] Care Team Providers Care Barbed Wire Machine Operator Name Role Phone Vanessa Christian MAURI Primary Care Provider [phone] Reason for Visit * Auth/Cert (Routine) Specialty [...] W RHC (WRVU 5.9) Rima Dickinson MD [facility] [place] [address] [facility] Referral ID Status Reason Start Date Expiration Date Visits Re quested Visits Authorized [id number] 1 1 Encounter Details Date Type Department Care Team (Late st Contact Info) Description 02/03/2024 10:00 AM EDT - 02/03/2024 11:00 AM EDT Surgery [place] [address] Saira Lua MD CARDIAC CATHETERIZATION Social History [...] lbs Follow-up Visits Follow up with your plumber cub in 2-4 weeks Access Site 'Black and Blue' and tenderness is expected during the first week Call if you noted a mass (lump) greater than the size of a ellis Call Office with any Questions and if you have any of the following Clarence Lane M.D Interventional Program Management Specialist Validation Software Facilitator #: [id number] * Attachments The following attachments cannot be [...] Lane MD - 02/03/2024 11:48 AM EDT [facility] Interventional Cardiology Adult Pre-Procedure H&P Update: Cardiac Catheterization Karlos Anthony [id number] 1960 Chief Complaint: Aortic stenosis HPI: Mr. [...] is inthe chart Clarence Lane MD Interventional Program Management Specialist 02/03/24 11:48 AM documented in this encounter Miscellaneous Notes * Brief Op Note - Clarence Lane MD - 02/03/2024 12:51 PM EDT Preliminary Cardiac Catheterization Procedure Note: Patient Name: Karlos Anthony : [id number] MR#: [id number] Case Date: 02/03/2024 Validation Software Facilitator: Surgeon(s) and Role: * Saira Lua MD [...] Modality Other Narrative 02/12/2024 3:47 PM EDT ?[facility] ? Cardiac Catheterization/Intervention Report ? Patient Name: Patenaude, Karlos ? Procedure Date: 02/03/2024 ? A #: [id number] ? Primary Physician: Mogadam, Emad ? Case #: [id number] ? File Name: [id number] ? Catheterization Order Number: [id number] ? [facility] ? Final Report [place], [place] ? Patient Name: ? Karlos Patenaude ? ID#: ?[id number] ? : ?1960 ? Procedure Date: ? [...] Procedure Note Saira Lua MD - 02/12/2024 [facility] Cardiac Catheterization/Intervention Report Patient Name: Karlos Anthony Procedure Date: 02/03/2024 A #: [id number] Primary Physician: Saira Lua Case #: [id number] File Name: [id number] Catheterization Order Number: [id number] [facility] FinalReport [place], [place] Patient Name: Karlos Anthony ID#:[id number] :1960 Procedure Date: February 03, 2024 Case [...] was designated as ASA Class III. The [facility] clinical frailty scale is 3: Managing Well. [...] 372 ms MUSE SYSTEM Calculated P [employer] [place] 59 degrees MUSE SYSTEM Calculated R [employer] [place] 34 degrees MUSE SYSTEM Calculated T [employer] 63 degrees MUSE SYSTEM INTERPRETATION Sinus bradycardia Otherwise normal ECG When compared with ECG of 21-OCT-2023 15:34, No significant change was found Confirmed by MD RNEEE, PIPER ([id number]) on 02/03/2024 11:57:31 AM MUSE [...] MD) documented in this encounter Care Teams Barbed Wire Machine Operator Relationship Specialty Start Date End Date Vanessa Christian APRN PCP - General Family Medicine 10/21/23 05/26/24 documented as of this encounter
--- OUTSIDE RECORDS SUMMARY | 2024-08-04 10:11 | XMS_ITS | Clinical Summary ---
Author Organization [facility] Address [address] [place] [address] Care Team Providers Care Relay Adjuster Name Role Phone Vanessa Christian NP Primary Care Provider [phone] Social History Tobacco Use Types Packs/Day Years [...] COVID-19 Vaccine (2022- season) 2024 Care Teams Relay Adjuster Relationship Specialty Start Date End Date Vanessa Christian NP [address] [place] [phone] PCP - General Family Medicine - Primary Care 10/07/23
--- OUTSIDE RECORDS SUMMARY | 2024-08-04 10:11 | XMS_ITS | Clinical Summary ---
Author Organization Formerly [facility] Address [facility] [place] [address] Care Team Providers Care Area Plant Manager Name Role Phone Vanessa Christian Lane DOTSON Primary Care Provider [phone] Allergies No known active allergies Medications Medication [...] of face 09/26/2023 05/27/2024 Overview (09/26/2023): Right yazidi Chest pressure 08/14/2023 10/21/2023 SILVA (dyspnea on exertion) 08/14/2023 HLD (hyperlipidemia) 08/14/2023 024 Encounters Date Type Department Care Team Description 05/27/2024 11:00 AM EDT Office Visit Cardiology at [address] [place] [address] Neftali Ernandez MD ASCVD (arteriosclerotic [...] PCV) 2024 Medical Devices Implanted Type Area Kier Drier Device Identifier Shelf Expiration Date Model / Serial / Lot Cable,Cut,Edg ,Blnt,Ss,3tpr ([id number]) - [id number] Implanted:Qty : 1 on 02/17/2024 by Zak Farmer MD at [facility] IMPLANTS Midline: Chest [employer] - [id number] 09/02/2028 [id number] / / [id number] Valve Coronary Aortic 23mm Tissue Trnscath Biopros Inspiris ([id number]) (Autoreq) - [id number] Implanted:Qty : 1 on 02/17/2024 by Zak Farmer MD at [facility] IMPLANTS Heart [employer] - TSAI LI 09/15/2027 [id number] / [id number] / Procedures Procedure Name Priority Date/Time Associated Diagnosis Comments EKG 12-LEAD Routine 05/27/2024 11:24 AM EDT from Last 3 Months Results * EKG 12 Lead (05/27/2024 11:24 AM EDT) Pathologist [facility] Ventricular rate 54 BPM MUSE SYSTEM Atrial Rate 54 BPM MUSE SYSTEM P-R Interval 216 ms MUSE SYSTEM QRS Duration 92 ms MUSE SYSTEM Q-T Interval 388 ms MUSE SYSTEM QTC Calculated (Bezet) 367 ms MUSE SYSTEM Calculated P [place] 12 degrees MUSE SYSTEM Calculated R [place] 27 degrees MUSE SYSTEM Calculated T [place] 62 degrees MUSE SYSTEM INTERPRETATION Sinus bradycardia with 1st degree A-V block Otherwise normal ECG When compared with ECG of 12-MAR-2024 14:35, T wave inversion no longer evident in Anterior leads Confirmed by MD Ernandez Daniel ([id number]) on 06/01/2024 8:36:17 AM MUSE SYSTEM 05/27/2024 [...] Status decision made by: Patient Care Teams Area Plant Manager Relationship Specialty Start Date End Date Vanessa Christian APRN [address] [place] [address] PCP - General Family Medicine 05/27/24
--- OUTSIDE RECORDS SUMMARY | 2024-08-04 10:11 | XMS_ITS | Encounter Summary ---
Author Organization [facility] Address [place] [address] Care Team Providers Care Pile Fabric Knitter Name Role Phone Vanessa Christian MAURI Primary Care Provider [phone] Encounter Details Date Type Department Care Team (Latest Contact Info) Description 03/12/2024 1:30 PM EDT - 03/12/2024 11:59 PM EDT Hospital Encounter XRay at [address] [place] [address] Coronary artery disease, unspecified vessel or lesion type, unspecified whether angina present, unspecified whether [place] or transplanted heart Discharge Disposition: Home Social History Tobacco Use Types Packs/Day Years Used Date Smoking Tobacco: Former Cigarettes Smokeless Tobacco: Never Comments:Quit 15 + years ago Alcohol Use Standard Drinks/Week Comments Yes 0 (1 standard drink = 0.6 oz pur e alcohol) rare [facility] Utilities Answer Date Recorded In the past 12 months has e [employer], gas, oil, or water [employer] threatened to shut off services in your [...] type, unspecified whether angina present, unspecified whether [place] or transplanted heart documented in this encounter Results * XR Chest PA & Lateral (Generic) (03/12/2024 1:42 PM EDT) WORKSTATION ID [id number] RAD Anatomical Region Laterality Modality Chest N/A [...] have questions please contact the health healthcare sales representative that requested your imaging first. ? Narrative 03/13/2024 8:28 AM EDT EXAMINATION: XR CHEST PA AND LATERAL (GENERIC) CLINICAL HISTORY: s/p cabg eval effusions I25.10, Atherosclerotic heart disease of [place] coronary artery without angina pectoris TECHNIQUE: PA [...] eval effusions I25.10, Atherosclerotic heart disease of [place] coronary artery withoutangina pectoris TECHNIQUE: PA and [...] who have questions please contactthe health healthcare sales representative that requested your imaging first. Zak Farmer MD IMG DX ORDERABLES documented in this encounter Visit Diagnoses Diagnosis Coronary artery disease, unspecified vessel or lesion type, unspecified whether angina present, unspecified whether [place] or transplanted heart documented in this encounter Care Teams Pile Fabric Knitter Relationship Specialty Start Date End Date Vanessa Christian APRN PCP - General Family Medicine 10/21/23 05/26/24 documented as of this encounter
--- OUTSIDE RECORDS SUMMARY | 2024-08-04 10:11 | XMS_ITS | Encounter Summary ---
Author Organization [facility] Address [facility] [place] [address] Care Team Providers Care National Park Tour Guide Name Role Phone Gino Vanessa Lane DOTSON Primary Care Provider [phone] Encounter Details Date Type Department Care Team (Late st Contact Info) Description 02/24/2024 Orders Only Cardiac Surgery [facility] [place] [phone] Trudi Lester APRN [facility] [place] [address] Social History Tobacco Use Types Packs/Day Years Used Date Smoking Tobacco: Former Cigarettes Smokeless Tobacco: Never Comments:Quit 15 + years ago Alcohol Use Standard Drinks/Week Comments Yes 0 (1 standard drink = 0.6 oz pur e alcohol) rare [facility] Utilities Answer Date Recorded In the past 12 months has e [employer], gas, oil, or water [employer] threatened to shut off services in your [...] on filedocumented in this encounter Care Teams National Park Tour Guide Relationship Specialty Start Date End Date Vanessa Christian APRN PCP - General Family Medicine 10/21/23 05/26/24 documented as of this encounter
--- OUTSIDE RECORDS SUMMARY | 2024-08-04 10:11 | XMS_ITS | Encounter Summary ---
Author Organization [facility] [place] [address] Care Team Providers Care Photolithographer Name Role Phone Vanessa Christian MAURI Primary Care Provider [phone] Encounter Details Date Type Department Care Team [...] on filedocumented in this encounter Care Teams Photolithographer Relationship Specialty Start Date End Date Vanessa Christian APRN [address] [place] [address] PCP - General Family Medicine 05/27/24 documented as of this encounter
--- OUTSIDE RECORDS SUMMARY | 2024-08-04 10:11 | XMS_ITS | Encounter Summary ---
Author Organization [facility] Address [address] [place] [address] Care Team Providers Care Radio Interference Supervisor Name Role Phone Vanessa Christian Lane MONCADA Primary Care Provider [phone] Encounter Details Date Type Department Care Team (Late st Contact Info) Description 10/24/2023 Lab Requisition [facility] Pathology & Laboratory Medicine - [address] [address] Oscar Nichole MD [address] [place] [address] [id number] Factitial dermatitis Social History Tobacco Use Types [...] management options, if applicable. 10/28/2023 11:24 EST [facility] Final Diagnosis A. SKIN OF ANGLICAN, LEFT, SHAVE BIOPSY: - Seborrheic keratosis, pigmented. 10/28/2023 11:24 EST [facility] Attestation By the signature below, the attending physician certifies that they have 1) personally conducted a gross and/or microscopic examination of the described specimen(s), and/or personally interpreted the results of laboratory testing of the described specimen(s), and 2) personally rendered or confirmed the above diagnosis. 10/28/2023 11:24 [facility] at [address] Microscopic Description The stratum corneum is thickened by compact and basketweave orthokeratosis with formation of horn pseudocysts. The epidermis is acanthotic with formation of broad and anastomosing trabeculae. The trabeculae are composed of basaloid keratinocytes with round uniform nuclei. The keratinocytes have a variable amount of melanin pigment. 10/28/2023 11:24 [facility] Clinical History Pigmented 2 cm patch; clinical diagnosis code: L98.1 10/28/2023 11:24 [facility] Gross Description A. Received in formalin labelled with proper patient identification (initials P, A) and left yazidi is a shave biopsy of an irregular [...] A3. Nora Anderson 10/25/2023 8:47 10/28/2023 11:24 [facility] Performing Lab [facility] 10/28/2023 11:24 [facility] Scanned Images 10/28/2023 11:24 [facility] Tissue SPECIMEN FROM SKIN / Unknown 10/24/2023 14:30 EST 10/24/2023 22:04 EST Oscar Nichole MD PATHOLOGY ORDERABLES [facility] [address] [place] [address] documented in this encounter Visit Diagnoses Diagnosis Factitial dermatitis Dermatitis factitia (artefacta) documented in this encounter Care Teams Radio Interference Supervisor Relationship Specialty Start Date End Date Vanessa Christian NP [address] [place] [address] PCP - General Family Medicine - Primary Care 10/07/23 documented as of this encounter
--- OUTSIDE RECORDS SUMMARY | 2024-08-04 10:11 | XMS_ITS | Encounter Summary ---
Author Organization [facility] Address [facility] [place] [address] Care Team Providers Care Research Anthropologist Name Role Phone Vanessa Christian Lane DOTSON Primary Care Provider [phone] Reason for Visit * Reason Comments Coronary Artery Disease Aortic Stenosis Encounter Details Date Type Department Care Team (Latest Contact Info) Description 05/27/2024 11:00 AM EDT Office Visit Cardiology at [address] [phone] Neftali Ernandez MD [facility] [place] [address] ASCVD (arteriosclerotic cardiovascular disease); Nonrheumatic aortic valve stenosis Social History Tobacco Use Types Packs/Day Years Used Date Smoking Tobacco: Former Cigarettes Smokeless Tobacco: Never Comments:Quit 15 + years ago Alcohol Use Standard Drinks/Week Comments Yes 0 (1 standard drink = 0.6 oz pur e alcohol) rare [facility] Utilities Answer Date Recorded In the past 12 months has e [employer], gas, oil, or water [employer] threatened to shut off services in your [...] disorders documented in this encounter Care Teams Research Anthropologist Relationship Specialty Start Date End Date Vanessa Christian, MAURI [address] [place] [address] PCP - General Family Medicine 05/27/24 documented as of this encounter
--- OUTSIDE RECORDS SUMMARY | 2024-08-04 10:11 | XMS_ITS | Encounter Summary ---
Author Organization [facility] Address [facility] [place] [address] Care Team Providers Care County Judge Name Role Phone Vanessa Christian MAURI Primary Care Provider [phone] Encounter Details Date Type Department Care Team (Latest Contact Info) Description 03/12/2024 Travel Social History Tobacco Use Types Packs/Day Years Used Date Smoking Tobacco: Former Cigarettes Smokeless Tobacco: Never Comments:Quit 15 + years ago Alcohol Use Standard Drinks/Week Comments Yes 0 (1 standard drink = 0.6 oz pur e alcohol) rare [facility] Utilities Answer Date Recorded In the [...] filedocumented in this encounter Care Teams County Judge Relationship Specialty Start Date End Date Vanessa Christian APRN PCP - General Family Medicine 10/21/23 05/26/24 documented as of this encounter
--- OUTSIDE RECORDS SUMMARY | 2024-08-04 10:11 | XMS_ITS | Encounter Summary ---
Author Organization [facility] Address [facility] [place] [place] [address] Care Team Providers Care Civil Technician Name Role Phone Vanessa Christian ORE CRUSHER Primary Care Provider [phone] Encounter Details Date Type Department Care Team (Late st Contact Info) Description 03/12/2024 2:40 PM EDT Office [place] [phone] Zak Farmer MD [facility] [place] [address] Coronary artery disease, unspecified vessel or lesion type, unspecified whether angina present, unspecified whether [place] or transplanted heart Social History Tobacco Use Types Packs/Day Years Used Date Smoking Tobacco: Former Cigarettes Smokeless Tobacco: Never Comments:Quit 15 + years ago Alcohol Use Standard Drinks/Week Comments Yes 0 (1 standard drink = 0.6 oz pur e alcohol) rare [facility] Utilities Answer Date Recorded In the past 12 months has e [employer], gas, oil, or water [employer] [address] threatened to shut off services in your [...] 2:40 PM EDT To: MD Vanessa Coles, ORE CRUSHER Re; Karlos Santa ( 1960) We had [...] office. Best personal regards, Zak Farmer MD [phone] documented in this encounter Plan of Treatment Not on file documented as of this encounter Procedures Procedure Name Priority Date/Time Associated Diagnosis Comments EKG 12-LEAD Routine 03/12/2024 2:35 PM EDT Coronary artery disease, unspecified vessel or lesion type, unspecified whether angina present, unspecified whether [place] or transplanted heart documented in this encounter Results * EKG 12 Lead (03/12/2024 2:35 PM EDT) Ventricular rate 59 BPM MUSE SYSTEM Atrial Rate 59 BPM MUSE SYSTEM P-R Interval 190 ms MUSE SYSTEM QRS Duration 92 ms MUSE SYSTEM Q-T Interval 406 ms MUSE SYSTEM QTC Calculated (Bezet) 401 ms MUSE SYSTEM Calculated P [place] -12 degrees MUSE SYSTEM Calculated R [place] 24 degrees MUSE SYSTEM Calculated T [place] 74 degrees MUSE SYSTEM INTERPRETATION Sinus bradycardia T wave abnormality, consider anterior ischemia Abnormal ECG When compared with ECG of 17-FEB-2024 13:24, [place] interval has decreased T wave inversion now evident in Anterior leads Confirmed by Paul Guzman ([id number]) on 03/15/2024 8:36:23 AM MUSE SYSTEM 03/12/2024 2:35 PM EDT 03/15/2024 8:36 AM EDT Zak Farmer MD ECG ORDERABLES [employer] documented in this encounter Visit Diagnoses Diagnosis Coronary artery disease, unspecified vessel or lesion type, unspecified whether angina present, unspecified whether sit[place] or transplanted heart documented in this encounter Care Teams Civil Technician Relationship Specialty Start Date End Date Vanessa Christian, MAURI PCP - General Family Medicine 10/21/23 05/26/24 documented as of this encounter
--- OUTSIDE RECORDS SUMMARY | 2024-08-04 10:11 | XMS_ITS | Referral Summary ---
Author Organization [facility] Address [address] [place] [address] Care Team Providers Care Regional Engineer Name Role Phone Filidayna Vanessa Sherman NP Primary Care Provider [phone] Social History Tobacco Use Types Packs/Day Years Used Date Smoking Tobacco: Never Assessed Sex and Gender Information Value Date Recorded Sex Assigned at Not on file Gender Identity Not on file Sexual Orientation Not on file Plan of Treatment Not on file Care Teams Regional Engineer Relationship Specialty Start Date End Date Vanessa Christian NP [address] [place] [address] PCP - General Family Medicine - Primary Care 10/07/23
--- OUTSIDE RECORDS SUMMARY | 2024-08-04 10:11 | XMS_ITS | Encounter Summary ---
Author Organization [facility] Address [facility] [place] [address] Care Team Providers Care Manager Library Name Role Phone Vanessa Christian MAURI Primary Care Provider [phone] Encounter Details Date Type Department Care Team (Latest Contact Info) Description 05/20/2024 Travel Social History Tobacco Use Types Packs/Day Years Used Date Smoking Tobacco: Former Cigarettes Smokeless Tobacco: Never Comments:Quit 15 + years ago Alcohol Use Standard Drinks/Week Comments Yes 0 (1 standard drink = 0.6 oz pur e alcohol) rare [facility] Utilities Answer Date Recorded In [...] filedocumented in this encounter Care Teams Manager Library Relationship Specialty Start Date End Date Vanessa Christian APRN PCP - General Family Medicine 10/21/23 05/26/24 documented as of this encounter
--- OUTSIDE RECORDS SUMMARY | 2024-08-04 10:12 | XMS_ITS | Encounter Summary ---
Author Organization [facility] [place] [address] Care Team Providers Care Audiometrist Name Role Phone Vanessa Christian APRN Primary Care Provider [phone] Encounter Details Date Type Department Care Team [...] on filedocumented in this encounter Care Teams Audiometrist Relationship Specialty Start Date End Date Vanessa Christian APRN PCP - General Family Medicine 10/21/23 05/26/24 documented as of this encounter
--- OUTSIDE RECORDS SUMMARY | 2024-08-04 10:12 | XMS_ITS | Encounter Summary ---
Author Organization [facility] [place] [address] Care Team Providers Care Tank Assembler Name Role Phone Vanessa Christian MAURI Primary Care Provider [phone] Reason for Visit * Auth/Cert (Routine) Specialty [...] ARTERIAL GRAFT (WRVU 7.93) Zak Farmer MD [facility] CARDIOTHORACIC [place] [address] [facility] Referral ID Status Reason Start Date Expiration Date Visits Re quested Visits Authorized [id number] 1 1 Encounter Details Date Type Department Care Team (Late st Contact Info) Description 02/17/2024 7:35 AM EDT Anesthesia Event Main Operating Room [facility] [place] [phone] Roman York MD [facility] [place] [address] Anesthesia Record Procedure Summary Procedure Name Responsible [...] by Sadiq Woo RN PIV 02/17/24; 0715; [id number] catheter system; 18 gauge; cephalic vein (lateral [...] th e electric, gas, oil, or water [employer] threatened to shut off services in your [...] Procedure Summary Date: 02/17/24 Room / Location: [facility] OR [address] [place] [address] MAIN OR Anesthesia Start: 734 Anesthesia Stop: [...] include unfiled device data. Patient Location: [facility] Level of Consciousness: Sedated (Pharmacologic/Intentional) Pain Management: [...] mg documented in this encounter Care Teams Tank Assembler Relationship Specialty Start Date End Date Vanessa Christian APRN PCP - General Family Medicine 10/21/23 05/26/24 documented as of this encounter
--- OUTSIDE RECORDS SUMMARY | 2024-08-04 10:12 | XMS_ITS | Encounter Summary ---
[place] [address] Care Team Providers Care Gis Software Developer Name Role Phone Aparna Jordan MAURI Primary Care Provider [phone] Reason for Referral * Diagnostic Test (Routine) - New Request Specialty Diagnoses / Procedures Referred By Contac t Referred To Contact Cardiology Diagnoses S/P AVR Procedures Echocardiogram Transthoracic Neftali Menon PA [facility] [place] [address] [facility] [place] [address] Referral ID Status Reason Start Date Expiration Date Visits Requested Visits Authorized [id number] New Request Specialty Service Requested 02/24/2024 02/23/2025 1 1 * Consultation (Routine) - Authorized Specialty Diagnoses / Procedures Referred By Contac t Referred To Contact Cardiology Diagnoses S/P AVR Hayder Graham MD [facility] [place] [address] Cardiac Rehab, [facility] [address] [place] [address] [place] [address] Referral ID Status Reason Start Date Expiration Date Visits Requested Visits Authorized [id number] Authorized Consult, Test & Treat 02/24/2024 08/22/2024 36 36 * Home Health Care (Routine) - Authorized Specialty Diagnoses / Procedures Referred By Sixto mendoza Referred To Contact Diagnoses S/P AVR Hayder Graham MD [facility] [place] [address] Referral ID Status Reason Start Date Expiration Date Visits Requested Visits Authorized [id number] Authorized Consult, Test & Treat 02/24/2024 08/22/2024 [...] 7.93) Hayder Graham MD [facility] [place] [address] [facility] Referral ID Status Reason Start Date Expiration Date Visits Re quested Visits Authorized [id number] 1 1 Encounter Details Date Type Department Care Team (Latest Contact Info) Description 02/17/2024 5:43 AM EDT - 02/24/2024 11:23 AM EDT Hospital Encounter Heart and Vascular Unit Level 4 [place] [address] Hayder Graham MD [facility] [place] [address] S/P AVR (Primary Dx); Aortic valve stenosis, etiology of cardiac valve disease unspecified Discharge Disposition: Home with VNA Social History Tobacco Use Types Packs/Day Years Used Date Smoking Tobacco: Former Cigarettes Smokeless Tobacco: Never Comments:Quit 15 + years ago Alcohol Use Standard Drinks/Week Comments Yes 0 (1 standard drink = 0.6 oz pur e alcohol) rare [facility] Answer Date Recorded In the [...] Patient Age: 63 y.o. Birthdate: 1960 Language: Mauritanian Race: White Ethnicity: Not nor Admit Date: 02/17/2024 Discharge Date: 02/24/24 Attending Physician: Hayder Graham MD Follow-up Recommendations for Providers: Please continue routine management of cardiovascular risk factors including blood pressure, lipids,glucose, etc. Please note any changes to medications. Patient to follow up with PCP, Aparna Jordan APRN, in 1-2 weeks. Patient to follow up with Bag Tester, Neftali Ernandez MD , in 2 weeks. Patient to follow up with Cardiac Surgeon, Dr. Hayder Graham, with a chest x-ray, EKG, and Echo. 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 Past Surgical History: Procedure Laterality Date PRO CABG, ARTERIAL, SINGLE N/A 02/17/2024 @CABG, USING ARTERIAL GRAFT;SINGLE ARTERIAL GRAFT (WRVU 33.75) performed by Hayder Graham MD at [facility] MAIN OR PRO CABG, ARTERY-VEIN, TWO N/A 02/17/2024 @CABG, TWO VENOUS GRAFTS & ARTERIAL GRAFT (WRVU 7.93) performed by Hayder Graham MD at [facility] MAIN OR PRO ENDOSCOPY W/VIDEO-ASST VEIN HARVEST, CABG Left 02/17/2024 ENDOSCOPIC HARVEST VEIN(S) FOR CABG (WRVU 0.31) performed by Hayder Graham MD at [facility] MAIN OR PRO REPLACEMENT PROSTHETIC AORTIC VALVE OPEN W CARDIOPULMONARY BYPASS HOMOGRF/STENT N/A 02/17/2024 @REPLACE AORTIC VALVE, OPEN, W\CPB, W\PROSTHETIC VALVE (WRVU 41.32) performed by Hayder Graham MD at [facility] MAIN OR Prior To Admission [...] insufficiency. He has glaucoma. He used to ZowPow until about 15 years ago. He has undergone prior herniorrhaphy. 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 Major Procedures/Operations: 02/17/24 s/p avr/cabgx3 CABG x 3 JOSE->LAD SVG->dRCA SVG->OM1 EVH from LLE AVR with a 23 mm Inspiris Bioprosthesis Hospital Course: Karlos Garcia was admitted to [facility] on 02/17/2024 via the Same [...] Hayder Graham and/or the Cardiac Surgery Physician Communications Department Chairperson Team may be reached at . Antibiotic [...] Dr. Hayder Graham. You may use a [place] Track or treadmill but avoid any pulling [...] while being managed by your PCP and/or Bag Tester. For future medication refills, please refer to your PCP and/or Bag Tester after your discharge from our service. Thank you REMOVE CHEST TUBE SUTURES ON OR AFTER 03/02/24 Home oxygen therapy: N/A Follow up appointments: You should follow up with your PCP, Aparna Jordan APRN, in 1-2 weeks. Our office will schedule an appointment with your Bag Tester, Neftali Ernandez MD , in 2 weeks. You have an appointment with your Cardiac Surgeon, Dr. Hayder Graham, 4 weeks with a chest x-ray, EKG, and Echo before your appointment. Cardiac Rehabilitation: Karlos Garcia was seen regarding participation in the outpatient Phase 2Cardiac Rehabilitation at [facility]. The patient agrees to a referral to this program. The referral will be sent at discharge and the patient should be contacted by the Program within 1- 2 weeks from discharge. Future Appointments and Orders Future Orders Complete By Expires Echocardiogram Transthoracic [83703 CPT(R)] 03/26/2024 09/25/2024 Process Instructions: Scheduling Instructions: Questions: Where will study be performed?: [facility] Clinics Does the patient have Congenital Heart Disease?: Does patient require sedation?: Sedation rationale: XR Chest PA & Lateral (Generic) [68002 82236 Custom] 03/26/2024 09/25/2024 Process Instructions: Scheduling Instructions: Questions: Portable exam?: Reason for exam and clinical history: s/p avr/cabg Clinical information / jerome questions for radiologist: Stat read required?: Date of injury if applicable: Requested Time: Where will study be performed?: [facility] Radiology Referral to Cardiac Rehab [IIP937 Custom] As directed Process Instructions: If no progress note charted, please enter Clinical details in comments. Scheduling Instructions: Questions: My question or request is: s/p AVR/CABG. Cardiac rehab at [facility]. Referral to Home Health [REF34 Custom] As directed Process Instructions: If no progress note charted, please enter Clinical details in comments. Scheduling Instructions: Comments: Please evaluate Karlos Garcia for admission to Home Health. [address] Phone Number: Date of : 1960 Inpatient DOCUMENTATION FOR VNA SERVICES (INCLUDING THOSE PATIENTS WITH MEDICARE COVERAGE REQUIRING HOME VNA SERVICES AND/OR HOSPICE SERVICES) PATIENT'S LOCATION: Karlos Garcia [address] [employer] [phone] Crown Presser's Name: self/family In discussion with the attending physician, it is certified that this patient is under their care and that they, or a Nurse Practitioner, or Physician Communications Department Chairperson who is working directly with them, hada [...] for services as follows: HOME HEALTH AGENCY: [facility] [address] [place] [address] RN orders: Cardiopulmonary assessment, incisional assessment, assess [...] issues please call the Cardiology Office at [phone] FOR MEDICARE ONLY: (please delete this section [...] APRN [address] / [place] [address] . All VNA agencies which cover the area of patient's residence have been reviewed, either verbally or in writing, and patient/family have chosen the home health care agency noted. Questions: Disciplines Requested: Nursing Physical Therapy Arrangements for VNA/home care: As above. Signed: NEFTALI MENON PA-C [facility] [place] [address] FAX [phone] Date: 02/24/2024 CC: Aparna Jordan, MAURI Jordan, Aparna Sherman APRN [address] [place] [address] documented in this encounter Discharge Instructions * [...] Hayder Graham and/or the Cardiac Surgery Physician Communications Department Chairperson Team may be reached at . Antibiotic [...] Dr. Hayder Graham. You may use a [place] Track or treadmill but avoid any pulling [...] while being managed by your PCP and/or Bag Tester. For future medication refills, please refer to your PCP and/or Bag Tester after your discharge from our service. Thank you REMOVE CHEST TUBE SUTURES ON OR AFTER 03/02/24 Home oxygen therapy: N/A Follow up appointments: You should follow up with your PCP, Aparna Jordan APRN, in 1-2 weeks. Our office will schedule an appointment with your Bag Tester, Neftali Ernandez MD , in 2 weeks. You have an appointment with your Cardiac Surgeon, Dr. Hayder Graham, 4 weeks with a chest x-ray, EKG, and Echo before your appointment. Cardiac Rehabilitation: Karlos Garcia was seen regarding participation in the outpatient Phase 2Cardiac Rehabilitation at [facility]. The patient agrees to a referral to [...] 0600 and on the weekends please page [phone]. * Eric Barahona PA - 02/23/2024 9:27 [...] 0600 and on the weekends please page [phone]. * Tiffanie Owens PTA - 02/22/2024 2:48 [...] d/c for 10 days. 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 * Kelley Hinson, BEATER MACHINE OPERATOR - 02/21/2024 10:15 AM EDT [...] d/c for 10 days. 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 * Kelley Hinson PTA - 02/20/2024 3:32 [...] at that time Kelley Hinson PTA Pager: [phone] Physical Therapy Inpatient Rehab Department * Louisa [...] 0600 and on the weekends please page [phone]. * Maris Benavides, PT - 02/19/2024 11:22 [...] d/c for 10 days. 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 Precautions/Special [...] outlined inthis evaluation. MARIS BENAVIDES, PT Pager: [phone] Physical Therapy Inpatient Rehabilitation Department Time IN / OUT: 3665-3035 Total Time: 38 (eval) minutes; * Antonio [...] 0600 and on the weekends please page [phone]. * Minnie Begum PA - 02/18/2024 8:25 [...] site CDI with SANJANA wrap Tubes/Lines/Drains: RIJ/PAC, [place], Jacky Ctx, L pleural CT, TPW, Delaney [...] 0600 and on the weekends please page [phone]. * Kim Ha RCP - 02/17/2024 2:25 [...] plan since last visit. Hayder Graham MD [phone] Source Note - Hayder Graham MD - [...] insufficiency. He has glaucoma. He used to ZowPow until about 15 years ago. He has [...] given written informed consent. Hayder Graham MD [phone] * Hayder Graham MD - 02/17/2024 7:00 [...] given written informed consent. Hayder Graham MD [phone] documented in this encounter Miscellaneous Notes * [...] information for follow-up Home Health & Hospice, [address] [place] [address] Cardiac Rehab, [address] [place] [address] Transportation: family or friend will provide Functional status prior to admission: Independent Home Environment: Others in the home: alone. Current Living Arrangements: home/apartment/condo. Accessibility Concerns:a few steps to enter 1 floor home. Current Functional Ability: Assistive Person and Equipment DME used at home: none DME Needed at Discharge: N/A Patient is insured through: Primary Insurance: [employer] Payor: [facility] / Plan: [facility] PPO / Product Type: *No Product [...] pain managed with scheduled Tylenol. Worked with [employer]. Ambulated in the roque multiple times during [...] anticipated Patient is insured through: Primary Insurance: [employer] Payor: [facility] / Plan: [facility] PPO / Product Type: *No Product type* / Secondary Insurance: N/A Last Physical Therapy Recommendation: home with home health (Str coming to stay for a week or two upon d/c) with to be determined (owns rolling walker, shower seat) Plan for discharge is: Home w/ Services Outpatient Agency/Support Group Needs: Homecare agency Home Health Services: Physical Therapy, Registered Nurse Agency Referrals: [facility]. [address] [place] [id number] Transportation: family or friend will provide Barriers to discharge: Discharge planning Plan going forward: Service Care Management will continue to follow and assist with discharge planning and coordination of care as indicated. Anticipated Date of Discharge: 02/22/2024 Rhett Bell RN RN/CM - Cellphone: [phone] Pager: [phone] Covering Service RN/CM * Plan of Care [...] RN - 02/19/2024 10:44 AM EDT [facility] CARDIAC REHABILITATION Karlos Garcia was seen today regarding participation in the outpatient Phase 2 Cardiac Rehabilitation at [facility]. The patient agrees to a referral to this program. The referral will be sent at discharge and the patient should be contacted by the Program within 1- 2 weeks from discharge. 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 (Only good for 180 days) Any patient receiving care in [place] must abide by [place] law. The hierarchy [...] (i) The agent with financial power of stripping and booking machine operator or a conservator appointed in accordance with [...] In the past 12 months has the [employer], gas, oil, or water [employer] threatened to shut off services in your [...] [address] [facility] [address] Physical address: [address] [facility], [address] Social & Family Supports: All names listed [...] Information: none noted Health/Prescription Coverage: Primary Insurance: [facility] Payor: [facility] / Plan: [facility] PPO / Product Type: *No Product type* / Secondary Insurance: N/A ; Prescription Coverage: Yes Preferred Pharmacy: [id number] AT [address] [address] Ransom Status: Patient is a : No Primary Care Provider confirmed: Aparna Jordan, [employer] [phone] Patient/Caregiver Goals of Treatment: dc to home Potential Needs for Transition of Care: home health care Agency Referrals: I have met with the patient to: discuss discharge planning needs. provide the [facility], Office of Care Management letter from the Fruit Coordinator pertaining to rehab referrals. provide a letter describing our affiliations within the [facility] and educate about their right to choose where referrals are sent. provide a list of Home Health Agencies / Durable Medical Equipment vendors which serve their preferred geographic area. provided patient with [facility] Star Quality Rating handout. They have requested referrals to: [facility]. [address] [place] [address] Note routed to a Cash Application Representative who will communicate referrals to facilities and [...] Reina Greene RN CM, BSN, CMGT- Ext [phone] * Plan of Care - Binta Trinidad [...] Operative Note Patient Name: Karlos Garcia : [id number] MR#: [id number] Case Date: 02/17/2024 Surgeon: Surgeon(s) and Role: * Hayder Graham MD - Primary * Neftali Menon PA - Physician Communications Department Chairperson Preoperative diagnosis: CAD Postoperative diagnosis: CAD, intraoperative [...] MD - 02/17/2024 8:20 AM EDT [facility] Operative Note Patient Name: Karlos Garcai : [id number] MR#: [id number] Case Date: 02/17/2024 Surgeon: Surgeons and Role: * Hayder Graham MD - Primary * Neftali Menon PA - Physician Communications Department Chairperson Preoperative diagnosis: CAD Postoperative diagnosis: CAD, intraoperative [...] mL Drains: Mediastinal and Left pleural [facility]: [facility] Procedure Description: The patient was brought [...] Aortic Valve Open W Cardiopulmonary Bypass Homogrf/Stent (77833) Yes 02/17/2024 7:28 AM EDT CAD Cabg, Artery-Vein, Two (65887) Yes 02/17/2024 7:28 AM EDT CAD Cabg, Arterial, Single (06866) Yes 02/17/2024 7:28 AM EDT CAD Endoscopy W/Video-Asst Vein [place], Cabg (60105) Yes 02/17/2024 7:28 AM EDT CAD POCT [...] CHEMISTRY ORDERABLE S [facility] [place] [address] * (ABNORMAL) Basic Metabolic Panel (non-fasting) (02/23/2024 [...] Carpio MD CHEMISTRY ORDERABLES Performing Organization Address City/[facility]/ZIP Co de Phone Number [facility] [place] [address] * Potassium (02/22/2024 4:30 AM EDT) [facility] Potassium 3.5 3.5 - 5.0 mmol/L [place] [...] MD CHEMISTRY ORDERABLE S Performing Organization Address City/[facility]/ZIP Co de Phone Number [facility] [place] [address] * (ABNORMAL) Basic Metabolic Panel (non-fasting) (02/21/2024 [...] LABORATORY Carbon Dioxide Not Perf 22 - [facility] Comment:Add-on request. Samp [...] Carpio MD CHEMISTRY ORDERABLES Performing Organization Address City/[facility]/ZIP Co de Phone Number [facility] [place] [address] * Lactate, whole blood, send to lab ([facility]) (02/21/2024 9:45 AM EDT) [facility] Lactate WB 2.0 0.5 - 2.2 mmol/L [facility] Blood 02/21/2024 9:45 AM EDT 02/21/2024 9:52 AM EDT Narrative Resulting Agency Comment Spec In Lab Hayder Graham MD CHEMISTRY ORDERABLE S Performing Organization Address [facility] Co de Phone Number [facility] [place] [address] * (ABNORMAL) Hepatic Function Panel (02/21/2024 9:45 AM EDT) [facility] Protein, Total 5.7(L) 6.1 - 8.0 g/dL [...] MD CHEMISTRY ORDERABLE S Performing Organization Address City/[facility]/ZIP Co de Phone Number [facility] [place] [address] * Lipase (02/21/2024 9:45 AM EDT) [facility] Lipase 56 0 - 60 unit/L [facility] Blood 02/21/2024 9:45 AM EDT 02/21/2024 9:52 AM EDT Narrative Resulting Agency Comment Spec In Lab Hayder Graham MD CHEMISTRY ORDERABLE S Performing Organization Address [facility] Co de Phone Number [facility] [place] [address] * Amylase (02/21/2024 9:45 AM EDT) Amylase 69 28 - 100 unit/L [facility] Blood 02/21/2024 9:45 AM EDT 02/21/2024 9:52 AM EDT Narrative Resulting Agency Comment Spec In Lab Hayder Graham MD CHEMISTRY ORDERABLE S Performing Organization Address [facility] Phone Number [facility] [place] [address] * Potassium (02/21/2024 3:08 AM EDT) Potassium [...] MD CHEMISTRY ORDERABLE S Performing Organization Address [facility] Co de Phone Number [facility] [place] [address] * XR Chest PA & Lateral (Generic) (02/20/2024 10:19 AM EDT) WORKSTATION ID [id number] DH RAD Anatomical Region Laterality Modality Chest [...] ? Electronically signed by: Rogerio Cruz MD, [facility] ??([phone]), at 02/20/2024 1:11 PM Narrative 02/20/2024 1:11 PM EDT EXAMINATION: XR CHEST PA AND LATERAL (GENERIC) CLINICAL HISTORY: s/p AVR/CABGx3 TECHNIQUE: PA and lateral views of the chest COMPARISON: 02/17/2024 FINDINGS: Support devices: Interval removal of [place] catheter, endotracheal tube and mediastinal chest tubes The cardiac silhouette is stable status post median sternotomy, CABG and aortic valve replacement. There are small pleural effusions. No pneumothorax. Procedure Note Rogerio Cruz MD - 02/20/2024 EXAMINATION: XR CHEST PA AND LATERAL (GENERIC) CLINICAL HISTORY: s/p AVR/CABGx3 TECHNIQUE: PA and lateral views of the chest COMPARISON: 02/17/2024 FINDINGS: Support devices: Interval removal of [place] catheter, endotracheal tubeand mediastinal chest tubes The [...] care leader that requested your imaging first. Hayder Graham MD IMG DX ORDERABLES * Scan, Peripheral Blood (02/20/2024 4:23 AM EDT) Pathologist [facility] Plat estimate Decreased [facility] RBC Morphology Normal [facility] Blood 02/20/2024 4:23 AM EDT 02/20/2024 4:42 AM EDT Narrative Resulting Agency Comment Spec In Lab Minnie FRENCH HEMATOLOGY CECILIO ALEMAN [facility] [place] [address] * (ABNORMAL) Differential, Automated (02/20/2024 4:23 AM EDT) [facility] Neutrophil % 81.7 % [facility] Neutrophil Absolute 10.37(H) 1.70 - 6.10 x10(3)/mc L [facility] Lymph % 7.4 % [facility] Lymphocytes Abs 0.9 0.9 - 3.2 x10(3)/mc L [facility] Monocyte % 9.7 % [facility] Monocyte Abs 1.2(H) 0.3 - 0.9 x10(3)/mc L [facility] Eos % 0.1 % [facility] Eosinophils Abs 0.0 0.0 - 0.4 x10(3)/mc L [facility] Basophil % 0.2 % [facility] [...] Absolute 0.12(H) 0.00 - 0.04 x10(3)/mc L [facility] Blood 02/20/2024 4:23 AM EDT 02/20/2024 4:42 AM EDT Narrative Resulting Agency Comment Spec In Lab Minnie FRENCH HEMATOLOGY CECILIO ALEMAN [facility] [place] [address] * (ABNORMAL) Hemogram (02/20/2024 4:23 AM EDT) [...] RDW Standard Deviation 43.5 36.0 - 45.0 [facility] RDW coefficient of variation 13.7 11.4 - 13.8 % [facility] Mean Platelet Volume 10.2 7.6 - 12.9 [facility] NRBC% auto 0.0 % [facility] NRBC Absolute 0.000 0.000 - 0.000 x10(3)/mc L [facility] Blood 02/20/2024 4:23 AM EDT 02/20/2024 4:42 AM EDT Narrative Resulting Agency Comment Spec In Lab Minnie FRENCH HEMATOLOGY CECILIO ALEMAN [facility] [place] [address] * (ABNORMAL) Basic Metabolic Panel (non-fasting) (02/20/2024 [...] MD CHEMISTRY ORDERABLE S Performing Organization Address [facility] Co de Phone Number [facility] [place] [address] * Potassium (02/19/2024 3:57 AM EDT) Potassium [...] MD CHEMISTRY ORDERABLE S Performing Organization Address [facility] Co de Phone Number [facility] [place] [address] * POCT Glucose (02/18/2024 8:24 AM EDT) Glucose, POC 157 65 - 199 mg/dL [facility] Comment: Supplemental ranges: <140 mg/dL before meals <180 mg/dL all other times of the day Blood 02/18/2024 8:24 AM EDT 02/18/2024 8:24 AM EDT Hayder Graham MD POINT OF CARE TEST ORDERABLES [facility] [place] [address] * Scan, Peripheral Blood (02/18/2024 1:40 AM EDT) Plat estimate Decreased [facility] RBC Morphology Normal [facility] Blood 02/18/2024 1:40 AM EDT 02/18/2024 1:56 AM EDT Narrative Resulting Agency Comment Spec In Lab Neftali FRENCH HEMATOLOGY ORDER OLE Performing Organization Address City/[facility]/ZIP Co de Phone Number [facility] [place] [address] * (ABNORMAL) Differential, Automated (02/18/2024 1:40 AM EDT) [facility] Neutrophil % 87.1 % [facility] Neutrophil Absolute 15.03(H) 1.70 - 6.10 x10(3)/mc L [facility] Lymph % 3.0 % [facility] Lymphocytes Abs 0.5(L) 0.9 - 3.2 x10(3)/mc L [facility] Monocyte % 9.1 % [facility] Monocyte Abs 1.6(H) 0.3 - 0.9 x10(3)/mc L [facility] Eos % 0.0 % [facility] Eosinophils Abs 0.0 0.0 - 0.4 x10(3)/mc L [facility] Basophil % 0.2 % [facility] [...] HEMATOLOGY ORDER OLE [facility] [place] [address] * (ABNORMAL) Hemogram (02/18/2024 1:40 AM EDT) White Blood Cell 17.2(H) 4.0 - 9.5 x10(3)/ L [facility] [...] Platelet 147 145 - 357 x10(3)/ L [facility] RDW Standard Deviation 39.9 36.0 - 45.0 [facility] RDW coefficient of variation 13.2 11.4 - 13.8 % [facility] Mean Platelet Volume 9.9 7.6 - 12.9 fL [facility] NRBC% auto 0.0 % [facility] NRBC Absolute 0.000 0.000 - 0.000 x10(3)/mc L [facility] Blood 02/18/2024 1:40 AM EDT 02/18/2024 1:56 AM EDT Narrative Resulting Agency Comment Spec In Lab Neftali FRENCH HEMATOLOGY ORDER OLE [facility] [place] [address] * (ABNORMAL) Basic Metabolic Panel (non-fasting) (02/18/2024 [...] MD CHEMISTRY ORDERABLE S Performing Organization Address City/[facility]/ZIP Co de Phone Number [facility] [place] [address] * (ABNORMAL) Troponin (02/18/2024 1:40 AM EDT) Pathologist [facility] Troponin-T, High Sensitivity 342(H) <=22 ng/L [facility] Test Catalog Reference: Fourth Cobb Definition of Myocardial Infarction. Journal of the [place] [employer] 2018;72:9315-4463 Blood 02/18/2024 1:40 AM EDT 02/18/2024 1:56 AM EDT Narrative Resulting Agency Comment Spec In Lab Hayder Graham MD CHEMISTRY ORDERABLE S Performing Organization Address City/[facility]/ZIP Co de Phone Number [facility] [place] [address] * POCT Glucose (02/17/2024 8:13 PM EDT) Glucose, POC 142 65 - 199 mg/dL [facility] Comment: Supplemental ranges: <140 mg/dL before meals <180 mg/dL all other times of the day Blood 02/17/2024 8:13 PM EDT 02/17/2024 8:13 PM EDT Hayder Graham MD POINT OF CARE TEST ORDERABLES Performing Organization Address City/[facility]/ZIP Co de Phone Number [facility] [place] [address] * POCT Glucose (02/17/2024 5:42 PM EDT) Glucose, POC 160 65 - 199 mg/dL [facility] Comment: Supplemental ranges: <140 mg/dL before meals <180 mg/dL all other times of the day Blood 02/17/2024 5:42 PM EDT 02/17/2024 5:42 PM EDT Hayder Graham MD POINT OF CARE TEST ORDERABLES Performing Organization Address City/[facility]/ZIP Co de Phone Number [facility] [place] [address] * Hemoglobin (02/17/2024 5:42 PM EDT) Hemoglobin 13.7 13.7 - 16.5 g/dL [facility] Blood 02/17/2024 5:42 PM EDT 02/17/2024 6:10 PM EDT Narrative Resulting Agency Comment Spec In Lab Hayder Graham MD HEMATOLOGY ORDERABL ES [facility] [place] [address] * Potassium (02/17/2024 5:42 PM EDT) Potassium [...] MD CHEMISTRY ORDERABLE S Performing Organization Address City/State/[facility] Co de Phone Number [facility] [place] [address] * (ABNORMAL) BLOOD GAS 2 ARTERIAL (02/17/2024 [...] [facility] FIO2 Art 40 % [facility] PF Ratio Art 195 [facility] Blood 02/17/2024 4:18 PM EDT 02/17/2024 4:18 PM EDT Hayder Graham MD POINT OF CARE TEST ORDERABLES [facility] [place] [id number] * XR Chest One View (02/17/2024 1:44 PM EDT) [employer] WORKSTATION ID [id number] DH RAD Anatomical Region Laterality Modality Chest N/A Digital Radiogra phy Impressions 02/17/2024 2:12 PM EDT 1. ??No definite pleural fluid collection or pneumothorax. 2. ??Right IJ [place]-Kaila catheter tip terminates in a descending branch [...] ? Electronically signed by: Denzel Hankins MD, [facility] ??([phone]), at 02/17/2024 2:12 PM Narrative 02/17/2024 2:12 PM EDT EXAMINATION: XR CHEST ONE VIEW CLINICAL HISTORY: s/p avr/cabg eval effusions TECHNIQUE: 1 view of the chest COMPARISON: Chest x-ray 01/09/2024, chest CT 02/03/2024 FINDINGS: ET tube tip terminates 5.2 cm above the carlos. Right IJ [place]-Kaila catheter tip terminates in a descending branch [...] 5.2 cm above the carlos. Right IJ Eagles Mere-Ganzcatheter tip terminates in a descending branch of [...] fluid collection or pneumothorax. 2. Right IJ [place]-Kaila catheter tip terminates in a descending branch [...] first. Electronically signed by: Denzel Hankins MD, [facility]([phone]), at 02/17/2024 2:12 PM Hayder Graham MD [...] [facility] FIO2 Art 100 % [facility] PF Ratio Art 320 [facility] Blood 02/17/2024 1:31 PM EDT 02/17/2024 1:31 PM EDT Hayder Graham MD POINT OF CARE TEST ORDERABLES Performing Organization Address City/[facility]/ZIP Co de Phone Number [facility] [place] [address] * (ABNORMAL) Coox2 (02/17/2024 1:21 PM EDT) [...] OF CARE TEST ORDERABLES Performing Organization Address City/[facility] Co de Phone Number [facility] [place] [address] * (ABNORMAL) BLOOD GAS 2 ARTERIAL (02/17/2024 [...] OF CARE TEST ORDERABLES Performing Organization Address [facility] Co de Phone Number [facility] [place] [address] * (ABNORMAL) Fibrinogen (02/17/2024 12:10 PM EDT) [...] MD HEMATOLOGY ORDERABLE S Performing Organization Address [facility] Co de Phone Number [facility] [place] [address] * (ABNORMAL) Thrombin time (02/17/2024 12:10 PM [...] MD HEMATOLOGY ORDERABLE S Performing Organization Address [facility] de Phone Number [facility] [place] [address] * APTT (02/17/2024 12:10 PM EDT) Partial [...] ORDERABLE S Performing Organization Address [facility] de Phone Number [facility] [place] [address] * (ABNORMAL) Prothrombin Time (02/17/2024 12:10 PM [...] ORDERABLE S [facility] [place] [address] * (ABNORMAL) Hemogram (02/17/2024 12:10 PM EDT) [...] RDW Standard Deviation 40.2 36.0 - 45.0 [facility]ATORY RDW coefficient of variation 12.8 11.4 - 13.8 % [facility] Mean Platelet Volume 9.5 7.6 - 12.9 fL [facility] NRBC% auto 0.0 % [facility] NRBC Absolute 0.000 0.000 - 0.000 x10(3)/mc L [facility] Blood 02/17/2024 12:1 0 PM EDT 02/17/2024 12:19 PM EDT Narrative Resulting Agency Comment Spec In Lab Tara York MD HEMATOLOGY ORDERABLE S [facility] [place] [address] * (ABNORMAL) BLOOD GAS 2 ARTERIAL (02/17/2024 [...] [facility] Comment: Noted by fretted instrument inspector. Please note: Patients with WBC [...] CARE TEST ORDERABLES [facility] [place] [address] * (ABNORMAL) BLOOD GAS 2 ARTERIAL (02/17/2024 [...] [facility] Comment: Noted by fretted instrument inspector. Please note: Patients with WBC [...] OF CARE TEST ORDERABLES Performing Organization Address [facility] Co de Phone Number [facility] [place] [address] * (ABNORMAL) Hemoglobin and Hematocrit, blood (02/17/2024 11:04 AM EDT) Hemoglobin 9.6(L) 13.7 - 16.5 g/dL [facility] Hematocrit 28.0(L) 40.5 - 48.5 % [facility] Comment: This result has been called to ALODNRA PAGAN by Eddie López on 02 17 2024 at 1120, and has been read back. Blood 02/17/2024 11:0 4 AM EDT 02/17/2024 11:12 AM EDT Narrative Resulting Agency Comment Spec In Lab Hayder Graham MD HEMATOLOGY ORDERABL ES Performing Organization Address [facility]/ZIP Co de Phone Number [facility] [place] [address] * (ABNORMAL) Platelet count (02/17/2024 11:04 AM EDT) Platelet 106(L) 145 - 357 x10(3)/mc L [facility] Immature Plt % 1.6 0.0 - 7.4 % [facility] Comment: Limitation of the Immature Platelet Fraction (IPF)-May be less reliable when the platelet count is less than 96x492/uL due to statistical imprecision. The IPF value [...] in a decreased state of production. References: [employer] The Clinical Value of the Immature Platelet Fraction (IPF) in Cell Recovery Document Number [id number] 03/2011 [employer] The Role of the Immature Platelet Fraction (IPF) in the Differential Diagnosis of Thrombocytopenia, Document [id number] V002/15/14 P002/17 Blood 02/17/2024 11:0 4 AM EDT 02/17/2024 11:12 AM EDT Narrative Resulting Agency Comment Spec In Lab Hayder Graham MD HEMATOLOGY ORDERABL ES Performing Organization Address [facility] Co de Phone Number [facility] [place] [address] * (ABNORMAL) Fibrinogen (02/17/2024 11:04 AM EDT) [...] Lab Hayder Graham MD HEMATOLOGY ORDERABL ES [facility] [place] [address] * (ABNORMAL) BLOOD GAS 2 ARTERIAL (02/17/2024 [...] CARE TEST ORDERABLES [facility] [place] [address] * (ABNORMAL) BLOOD GAS 2 ARTERIAL (02/17/2024 [...] CARE TEST ORDERABLES [facility] [place] [address] * Surgical Pathology Report (02/17/2024 10:01 AM EDT) Final Diagnosis [id number] ? Location: [facility]; [facility]; The signing pathologist has (i) examined the relevant preparation(s) for the specimen(s) and (ii) rendered or confirmed the diagnosis(es). . ?Surgical Pathology DIAGNOSIS Aortic valve leaflets, excision: Valve leaflets with myxoid degeneration, nodular fibrosis and dystrophic calcifications. Electronically signed by: ?Livier Montoya MD Verified: ??02/24/2024 13:49 ??Pathologist Performed at: ??-[facility] Dept. of Pathology, [place] [address] Fruit Coordinator: Job Brewer MD, AP, ??IA Certificate: [id number] SPECIMEN(S) SUBMITTED A - Aortic Valve Leaflets, [...] Sections Processing Blocks submitted for decalcification: A1. Agricultural Appraiser sections in 1 cassette labeled A1. ??ajw 02/24/2024 1:49 PM EDT [facility] AORTIC STRUCTURE / Unknown 02/17/2024 10:01 AM EDT 02/17/2024 10:01 AM EDT Hayder Graham MD PATHOLOGY/[place] [address] * Specimen to Pathology (02/17/2024 10:01 AM EDT) AP Specimen 02/17/2024 10:0 1 AM EDT 02/17/2024 10:01 AM EDT Narrative [facility] - 02/17/2024 10:01 AM EDT Specimen requisition ordered. ??Separate Pathology report to follow Hayder Graham MD PATHOLOGY/CYTOLOGY ORDERABLES [facility] [place] [address] * (ABNORMAL) BLOOD GAS 2 ARTERIAL (02/17/2024 [...] CARE TEST ORDERABLES [facility] [place] [address] * (ABNORMAL) BLOOD GAS 2 VENOUS (02/17/2024 9:34 AM EDT) pH, Venous 7.22(Criti marquez) 7.32 - 7.42 [facility] Comment:Noted by fretted instrument inspector. PCO2, Venous 43 41 - 51 mmHg [facility] Comment:Noted by fretted instrument inspector. PO2, Venous 57(H) 25 - 40 mmHg [facility] Comment:Noted by fretted instrument inspector. Bicarbonate, Venous 17.1 mmol/L [facility] Comment:Noted by fretted instrument inspector. Base Excess, Venous -10.6 mmol/L [facility] Comment:Noted by fretted instrument inspector. Hgb Blood Gas 11.2(L) 13.7 - 16.5 g/dL [facility] Comment:Noted by fretted instrument inspector. Oxyhemoglobin, Venous 86.5 % [facility] Comment:Noted by fretted instrument inspector. Carboxyhemoglob in, Venous 0.3 % [facility] Comment: Noted by fretted instrument inspector. Nonsmokers: 0.5-1.5% COHB Smokers: Variable, but usually less than 10% Toxic: 20-30% COHB Lethal: Greater than 60% COHB Methemoglobin, Venous 0.0 <=1.5 % [facility] Comment:Noted by fretted instrument inspector. Na Whole Blood 156(H) 135 - 145 mmol/L [facility] Comment:Noted by fretted instrument inspector. K Whole Blood 5.5(H) 3.5 - 5.0 mmol/L [facility] Comment: Noted by fretted instrument inspector. Please note: Patients with WBC >100,000 may have falsely elevated Potassium levels. Contact the Clinical Chemistry Laboratory if there are any questions. ICa Whole Blood 1.03(L) 1.15 - 1.33 mmol/L [facility] Comment: Noted by fretted instrument inspector. Note: ??Total bilirubin higher than 20 mg/dL may lead to falsely low ionized calcium. CL Whole Blood 100 98 - 107 mmol/L [facility] Comment:Noted by fretted instrument inspector. Gluc Whole Bld 132 65 - 199 mg/dL [facility] Comment: Noted by fretted instrument inspector. Diabetes: >=200 mg/dL plus symptoms Lactate WB 1.0 0.5 - 2.2 mmol/L [facility] Comment:Noted by fretted instrument inspector. Blood Gas Source Venous [facility] Blood 02/17/2024 9:34 AM EDT 02/17/2024 9:34 AM EDT Hayder Graham MD POINT OF CARE TEST ORDERABLES [facility] [place] [address] * (ABNORMAL) BLOOD GAS 2 ARTERIAL (02/17/2024 [...] OF CARE TEST ORDERABLES Performing Organization Address [facility] Co de Phone Number [facility] [place] [address] * POCT Glucose (02/17/2024 6:38 AM EDT) Glucose, POC 98 65 - 199 mg/dL [facility] Comment: Supplemental ranges: <140 mg/dL before meals <180 mg/dL all other times of the day Blood 02/17/2024 6:38 AM EDT 02/17/2024 6:38 AM EDT Hayder Graham MD POINT OF CARE TEST ORDERABLES Performing Organization Address [facility] Co de Phone Number [facility] [place] [phone] * Transesophageal Echo/OR (02/17/2024 6:33 AM EDT) [...] [facility] [...] 6 hours upon arrival to Unit. Give KS if unable to take PO, Routine Given [...] dose on Sat02/17/24 at 1400, Until Discontinued, [place] teeth and / or gums. Scan the CHG vial in the [employer] Q-Care Oral Care Kit from floor stock. Ventilator-associated pneumonia prophylaxis For use in ICU/Critical care locations ONLY. Obtain kit from Floor Stock location. Scan CHG vial in the [employer] Q-Care Oral Care Kit, Routine Given [...] restart at 50% of previous rate. Call housecleaner if goal not achieved at maximum rate. [...] 25 mg, Oral, ONCE, 1 dose, On [facility] 02/22/24 at 1000, Routine Given 02/22/2024 10:02 AM EDT 25 mg metoprolol tartrate (Lopressor) tablet 50 mg 50 mg, Oral, EVERY 12 HOURS SCHEDULED (2 times per day), First dose (after last modification) on [facility] 02/22/24 at 2100, Until Discontinued, Hold for [...] PHENYLephrine and/or vasopressin ineffective. Call pager # [phone] if initiated. Titrate to keep systolic blood [...] 2.0 L/min/M2. Maximum volume 2 L. Call housecleaner for additional fluid orders: pager #[phone]. Rate/Dose Verify 02/18/2024 8:00 AM EDT 1 mL/hr 1 mL/hr Rate/Dose Verify 02/18/2024 6:00 AM EDT 1 mL/hr 1 mL/hr Rate/Dose Verify 02/18/2024 4:00 AM EDT 1 mL/hr 1 mL/hr sodium chloride 0.9% infusion 10-30 mL/hr, Intravenous, DAILY PRN, Starting on Sat02/17/24 at 1307, Until Sat02/18/24 at 0835, Side port TKO rate, per [facility] nursing protocol. Rate/Dose Verify 02/17/2024 8:00 [...] give IV, Routine 0821 (Given - Provider: eRilly Vincent RN) 0907 (Given - Provider: Mishel [...] Crook, COLBY) 0930 (Not Given - Provider: Jazyln Maldonado RN - Reason: Patient/family refused - [...] Routine documented in this encounter Care Teams Gis Software Developer Relationship Specialty Start Date End Date Aparna Jordan APRN PCP - General Family Medicine 10/21/23 05/26/24 documented as of this encounter
--- OUTSIDE RECORDS SUMMARY | 2024-08-04 10:12 | XMS_ITS | Encounter Summary ---
[facility] [place] [address] Care Team Providers Care Swimming Pool Cleaner Name Role Phone Aparna Jordan MAURI Primary Care Provider [phone] Reason for Visit * Auth/Cert (Routine) Specialty [...] MD [facility] [place] [address] [facility] Referral ID Status Reason Start Date Expiration Date Visits Re quested Visits Authorized [id number] 1 1 Encounter Details Date Type Department Care Team (Late st Contact Info) Description 02/17/2024 7:30 AM EDT - 02/17/2024 1:26 PM EDT Surgery [place] [id number] Hayder Graham MD [facility] [place] [address] ENDOSCOPIC HARVEST VEIN(S) FOR CABG (WRVU 0.31) [...] Patient Age: 63 y.o. Birthdate: 1960 Language: Bhutanese Race: White Ethnicity: Not nor Admit Date: 02/17/2024 Discharge Date: 02/24/24 Attending Physician: Hayder Graham MD Follow-up Recommendations for Providers: Please continue routine management of cardiovascular risk factors including blood pressure, lipids,glucose, etc. Please note any changes to medications. Patient to follow up with PCP, Aparna Jordan APRN, in 1-2 weeks. Patient to follow up with Test Director, Neftali Ernandez MD , in 2 weeks. Patient to follow up with Cardiac Surgeon, Dr. Hayder Graham, with a chest x-ray, EKG, and Echo. 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 Past Surgical History: Procedure Laterality Date PRO CABG, ARTERIAL, SINGLE N/A 02/17/2024 @CABG, USING ARTERIAL GRAFT;SINGLE ARTERIAL GRAFT (WRVU 33.75) performed by Hayder Graham MD at [facility] MAIN OR PRO CABG, ARTERY-VEIN, TWO N/A 02/17/2024 @CABG, TWO VENOUS GRAFTS & ARTERIAL GRAFT (WRVU 7.93) performed by Hayder Graham MD at [facility] MAIN OR PRO ENDOSCOPY W/VIDEO-ASST VEIN HARVEST, CABG Left 02/17/2024 ENDOSCOPIC HARVEST VEIN(S) FOR CABG (WRVU 0.31) performed by Hayder Graham MD at [facility] MAIN OR PRO REPLACEMENT PROSTHETIC AORTIC VALVE OPEN W CARDIOPULMONARY BYPASS HOMOGRF/STENT N/A 02/17/2024 @REPLACE AORTIC VALVE, OPEN, W\CPB, W\PROSTHETIC VALVE (WRVU 41.32) performed by Hayder Graham MD at [facility] MAIN OR Prior To Admission [...] insufficiency. He has glaucoma. He used to [email or web address] until about 15 years ago. He has undergone prior herniorrhaphy. 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 Major Procedures/Operations: 02/17/24 s/p avr/cabgx3 CABG x 3 JOSE->LAD SVG->dRCA SVG->OM1 EVH from LLE AVR with a 23 mm Inspiris Bioprosthesis Hospital Course: Karlos Garcia was admitted to [facility] on 02/17/2024 via the Same [...] Hayder Graham and/or the Cardiac Surgery Physician Lapel Stitcher Team may be reached at . Antibiotic [...] Please refer to the card with the [place] Heart Association Guidelines for more information. You [...] Dr. Hayder Graham. You may use a Horse Shoe Track or treadmill but avoid any pulling [...] should resume a low fat, low cholesterol, [place] Heart Association Diet. Driving: No driving until [...] while being managed by your PCP and/or Test Director. For future medication refills, please refer to your PCP and/or Test Director after your discharge from our service. Thank you REMOVE CHEST TUBE SUTURES ON OR AFTER 03/02/24 Home oxygen therapy: N/A Follow up appointments: You should follow up with your PCP, Aparna Jordan APRN, in 1-2 weeks. Our office will schedule an appointment with your Test Director, Neftali Ernandez MD , in 2 weeks. You have an appointment with your Cardiac Surgeon, Dr. Hayder Graham, 4 weeks with a chest x-ray, EKG, and Echo before your appointment. Cardiac Rehabilitation: Karlos Garcia was seen regarding participation in the outpatient Phase 2Cardiac Rehabilitation at [facility]. The patient agrees to a referral to this program. The referral will be sent at discharge and the patient should be contacted by the Program within 1- 2 weeks from discharge. Future Appointments and Orders Future Orders Complete By Expires Echocardiogram Transthoracic [35010 CPT(R)] 03/26/2024 09/25/2024 Process Instructions: Scheduling Instructions: Questions: Where will study be performed?: [facility] Does the patient have Congenital Heart Disease?: Does patient require sedation?: Sedation rationale: XR Chest PA & Lateral (Generic) [87800 76592 Custom] 03/26/2024 09/25/2024 Process Instructions: Scheduling Instructions: Questions: Portable exam?: Reason for exam and clinical history: s/p avr/cabg Clinical information / jerome questions for radiologist: Stat read required?: Date of injury if applicable: Requested Time: Where will study be performed?: [facility] Radiology Referral to Cardiac Rehab [ZOM316 Custom] As directed Process Instructions: If no progress note charted, please enter Clinical details in comments. Scheduling Instructions: Questions: My question or request is: s/p AVR/CABG. Cardiac rehab at [facility]. Referral to Home Health [REF34 Custom] As directed Process Instructions: If no progress note charted, please enter Clinical details in comments. Scheduling Instructions: Comments: Please evaluate Karlos Garcia for admission to Home Health. [address] Phone Number: Date of : 1960 Inpatient DOCUMENTATION FOR VNA SERVICES (INCLUDING THOSE PATIENTS WITH MEDICARE COVERAGE REQUIRING HOME VNA SERVICES AND/OR HOSPICE SERVICES) PATIENT'S LOCATION: Karlos Garcia [address] [place] [phone] Medical Receptionist Biller's Name: self/family In discussion with the attending physician, it is certified that this patient is under their care and that they, or a Nurse Practitioner, or Physician Lapel Stitcher who is working directly with them, hada [...] for services as follows: HOME HEALTH AGENCY: [facility] [address] [place] [id number] RN orders: Cardiopulmonary assessment, incisional assessment, assess [...] issues please call the Cardiology Office at [phone] FOR MEDICARE ONLY: (please delete this section [...] [facility] [address] FAX [phone] Date: 02/24/2024 CC: Aparna Jordan, MAURI Jordan, Aparna Sherman APRN [address] [place] [address] documented in this encounter Discharge Instructions * [...] Hayder Graham and/or the Cardiac Surgery Physician Lapel Stitcher Team may be reached at . Antibiotic [...] Please refer to the card with the [place] Heart Association Guidelines for more information. You [...] Dr. Hayder Graham. You may use a Horse Shoe Track or treadmill but avoid any pulling [...] should resume a low fat, low cholesterol, [place] Heart Association Diet. Driving: No driving until [...] while being managed by your PCP and/or Test Director. For future medication refills, please refer to your PCP and/or Test Director after your discharge from our service. Thank you REMOVE CHEST TUBE SUTURES ON OR AFTER 03/02/24 Home oxygen therapy: N/A Follow up appointments: You should follow up with your PCP, Aparna Jrodan APRN, in 1-2 weeks. Our office will schedule an appointment with your Test Director, Neftali Ernandez MD , in 2 weeks. You have an appointment with your Cardiac Surgeon, Dr. Hayder Graham, 4 weeks with a chest x-ray, EKG, and Echo before your appointment. Cardiac Rehabilitation: Karlos Garcia was seen regarding participation in the outpatient Phase 2Cardiac Rehabilitation at [facility]. The patient agrees to a referral to [...] 0600 and on the weekends please page [phone]. * Eric Barahona PA - 02/23/2024 9:27 [...] 0600 and on the weekends please page [phone]. * Tiffanie Owens, SECONDARY SCHOOL PRINCIPAL - 02/22/2024 2:48 PM EDT Physical Therapy [...] d/c for 10 days. 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 He drives. He works Precautions/Special Considerations: STERNAL [...] LRAD and supervision Time IN / OUT: 2690-8833 Total Time: 30 minutes; TEFx2 Tiffanie Owens Pager: [phone] Physical Therapy Inpatient Rehabilitation Department * Romeo [...] 0600 and on the weekends please page [phone]. * Kelley Hinson SEC[employer] SCHO[employer] PRINCIPAL - 02/21/2024 10:15 AM EDT Physical Therapy [...] d/c for 10 days. 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 He drives. He works Precautions/Special Considerations: STERNAL [...] LRAD and supervision Time IN / OUT: 8751-0375 Total Time: 25 minutes; TEF 2 Kelley Hinson PTA Pager: [phone] Physical Therapy Inpatient Rehabilitation Department * Louisa [...] 0600 and on the weekends please page [phone]. * Kelley Hinson PTA - 02/20/2024 3:32 [...] at that time Kelley Hinson PTA Pager: [phone] Physical Therapy Inpatient Rehab Department * Louisa [...] 0600 and on the weekends please page [phone]. * Maris Benavides, PT - 02/19/2024 11:22 [...] d/c for 10 days. 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 He drives. He works. Precautions/Special Considerations: STERNAL [...] outlined inthis evaluation. MARIS BENAVIDES, PT Pager: [phone] Physical Therapy Inpatient Rehabilitation Department Time IN / OUT: 2924-5915 Total Time: 38 (eval) minutes; * Antonio [...] 0600 and on the weekends please page [phone]. * Minnie Begum PA - 02/18/2024 8:25 [...] attending surgeon on rounds this morning. GILLIAN Garica 02/18/2024 Between the hours of 1800 - 0600 and on the weekends please page [phone]. * Kim Ha RCP - 02/17/2024 2:25 [...] plan since last visit. Hayder Graham MD [phone] Source Note - Hayder Graham MD - [...] given written informed consent. Hayder Graham MD [phone] * Hayder Graham MD - 02/17/2024 7:00 [...] given written informed consent. Hayder Graham MD [phone] documented in this encounter Miscellaneous Notes * [...] information for follow-up Home Health & Hospice, [address] [place] [address] Cardiac Rehab, [address] [place] [address] Transportation: family or friend will provide Functional status prior to admission: Independent Home Environment: Others in the home: alone. Current Living Arrangements: home/apartment/condo. Accessibility Concerns:a few steps to enter 1 floor home. Current Functional Ability: Assistive Person and Equipment DME used at home: none DME Needed at Discharge: N/A Patient is insured through: Primary Insurance: [place] [employer] Payor: [facility] / Plan: [facility] PPO / Product Type: *No [...] pain managed with scheduled Tylenol. Worked with [employer]. Ambulated in the roque multiple times during [...] anticipated Patient is insured through: Primary Insurance: [facility] Payor: [facility] / Plan: [facility] PPO / Product Type: *No Product type* / Secondary Insurance: N/A Last Physical Therapy Recommendation: home with home health (Str coming to stay for a week or two upon d/c) with to be determined (owns rolling walker, shower seat) Plan for discharge is: Home w/ Services Outpatient Agency/Support Group Needs: Homecare agency Home Health Services: Physical Therapy, Registered Nurse Agency Referrals: [facility] [address] [place] [address] Transportation: family or friend will provide Barriers to discharge: Discharge planning Plan going forward: Service Care Management will continue to follow and assist with discharge planning and coordination of care as indicated. Anticipated Date of Discharge: 02/22/2024 Rhett Bell RN RN/CM - Cellphone: [phone] Pager: [phone] Covering Service RN/CM * Plan of Care [...] Phase 2 Cardiac Rehabilitation at [facility]. 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 (Only good for 180 days) Any patient receiving care in [place] must abide by [place] law. The hierarchy for surrogate decision making [...] place to sleep or slept in [facility] (including now)?: No In the past 12 months has the [employer], gas, oil, or water [employer] threatened to shut off services in your [...] Home Address confirmed as: [address] [facility] [address] Physical address: [address] [facility], [address] Social & Family Supports: All names listed [...] Information: none noted Health/Prescription Coverage: Primary Insurance: [facility]or: [facility] / Plan: [facility] PPO / Product Type: *No Product type* / Secondary Insurance: N/A ; Prescription Coverage: Yes Preferred Pharmacy: [id number] [address] [place] Status: Patient is a : No Primary Care Provider confirmed: Aparna Jordan, MAURI [phone] Patient/Caregiver Goals of Treatment: dc to home Potential Needs for Transition of Care: home health care Agency Referrals: I have met with the patient to: discuss discharge planning needs. provide the [facility], Office of Care Management letter from the Textile Colorist Dyer pertaining to rehab referrals. provide a letter describing our affiliations within the [facility] and educate about their right to choose where referrals are sent. provide a list of Home Health Agencies / Durable Medical Equipment vendors which serve their preferred geographic area. provided patient with [facility] Star Quality Rating handout. They have requested referrals to: [facility] [address] [place] [address] Note routed to a Strategic Marketing Manager who will communicate referrals to facilities [...] Reina Greene RN CM, BSN, CMGT-BC Ext [phone] * Plan of Care - Binta Trinidad [...] Operative Note Patient Name: Karlos Garcia : [id number] MR#: [id number] Case Date: 02/17/2024 Surgeon: Surgeon(s) and Role: * Hayder Graham MD - Primary * Neftali Menon PA - Physician Lapel Stitcher Preoperative diagnosis: CAD Postoperative diagnosis: CAD, intraoperative [...] Mediastinal and Left pleural Disposition: [facility] Condition: doing well without problems Attestation: Case Date: 02/17/2024 I performed this procedure without the involvement of a resident. HAYDER GRAHAM MD 02/17/2024 * Op Note - Hayder Graham MD - 02/17/2024 8:20 AM EDT [facility] Operative Note Patient Name: Karlos Garcia : [id number] MR#: [id number] Case Date: 02/17/2024 Surgeon: Surgeons and Role: * Hayder Graham MD - Primary * Neftali Menon PA - Physician Lapel Stitcher Preoperative diagnosis: CAD Postoperative diagnosis: CAD, intraoperative [...] Mediastinal and Left pleural Disposition: [facility] Procedure Description: The patient was brought to [...] Aortic Valve Open W Cardiopulmonary Bypass Homogrf/Stent (63090) Yes 02/17/2024 7:28 AM EDT CAD Cabg, Artery-Vein, Two (83730) Yes 02/17/2024 7:28 AM EDT CAD Cabg, Arterial, Single (55781) Yes 02/17/2024 7:28 AM EDT CAD Endoscopy W/Video-Asst Vein [place], Cabg (71524) Yes 02/17/2024 7:28 AM EDT CAD POCT [...] ORDERABLE S [facility] [place] [address] * (ABNORMAL) Basic Metabolic Panel (non-fasting) (02/23/2024 [...] Carpio MD CHEMISTRY ORDERABLES Performing Organization Address [facility] Co de Phone Number [facility] [place] [address] * Potassium (02/22/2024 4:30 AM EDT) Potassium [...] CHEMISTRY ORDERABLE S Performing Organization Address [facility] Co de Phone Number [facility] [place] [address] * (ABNORMAL) Basic Metabolic Panel (non-fasting) (02/21/2024 [...] CHEMISTRY ORDERABLES [facility] [place] [address] * Lactate, whole blood, send to lab ([facility]) (02/21/2024 9:45 AM EDT) Lactate WB 2.0 0.5 - 2.2 mmol/L [facility] Blood 02/21/2024 9:45 AM EDT 02/21/2024 9:52 AM EDT Narrative Resulting Agency Comment Spec In Lab Hayder Graham MD CHEMISTRY ORDERABLE S Performing Organization Address City/[facility]/ZIP Co de Phone Number [facility] [place] [address] * (ABNORMAL) Hepatic Function Panel (02/21/2024 9:45 AM EDT) Pathologist [facility] Protein, Total 5.7(L) 6.1 - 8.0 g/dL [...] CHEMISTRY ORDERABLE S Performing Organization Address City/[facility]/ZIP Co de Phone Number [facility] [place] [address] * Lipase (02/21/2024 9:45 AM EDT) Pathologist [facility] Lipase 56 0 - 60 unit/L [facility] Blood 02/21/2024 9:45 AM EDT 02/21/2024 9:52 AM EDT Narrative Resulting Agency Comment Spec In Lab Hayder Graham MD CHEMISTRY ORDERABLE S Performing Organization Address [facility] Co de Phone Number [facility] [place] [address] * Amylase (02/21/2024 9:45 AM EDT) Amylase 69 28 - 100 unit/L [facility] Blood 02/21/2024 9:45 AM EDT 02/21/2024 9:52 AM EDT Narrative Resulting Agency Comment Spec In Lab Hayder Graham MD CHEMISTRY ORDERABLE S Performing Organization Address [facility] de Phone Number [facility] [place] [address] * Potassium (02/21/2024 3:08 AM EDT) Pathologist [facility] Potassium 3.8 3.5 - 5.0 mmol/L [facility] [...] CHEMISTRY ORDERABLE S Performing Organization Address [facility] Co de Phone Number [facility] [place] [address] * XR Chest PA & Lateral (Generic) (02/20/2024 10:19 AM EDT) WORKSTATION ID [id number] RAD Anatomical Region Laterality Modality Chest N/A [...] signed by: Rogerio Cruz MD, [facility] ??([phone]), at 02/20/2024 1:11 PM Narrative 02/20/2024 1:11 PM EDT EXAMINATION: XR CHEST PA AND LATERAL (GENERIC) CLINICAL HISTORY: s/p AVR/CABGx3 TECHNIQUE: PA and lateral views of the chest COMPARISON: 02/17/2024 FINDINGS: Support devices: Interval removal of [place]aila catheter, endotracheal tube and mediastinal chest tubes The cardiac silhouette is stable status post median sternotomy, CABG and aortic valve replacement. There are small pleural effusions. No pneumothorax. Procedure Note Rogerio Cruz MD - 02/20/2024 EXAMINATION: XR CHEST PA AND LATERAL (GENERIC) CLINICAL HISTORY: s/p AVR/CABGx3 TECHNIQUE: PA and lateral views of the chest COMPARISON: 02/17/2024 FINDINGS: Support devices: Interval removal of [place]aila catheter, endotracheal tubeand mediastinal chest tubes The [...] signed by: Rogerio Cruz MD, [facility]([phone]), at 02/20/2024 1:11 PM Hayder Graham MD IMG DX ORDERABLES * Scan, Peripheral Blood (02/20/2024 4:23 AM EDT) Plat estimate Decreased [facility] RBC Morphology Normal [facility] Blood 02/20/2024 4:23 AM EDT 02/20/2024 4:42 AM EDT Narrative Resulting Agency Comment Spec In Lab Minnie FRENCH HEMATOLOGY CECILIO ALEMAN [facility] [place] [address] * (ABNORMAL) Differential, Automated (02/20/2024 4:23 AM EDT) Pathologist [facility] Neutrophil % 81.7 % [facility] Neutrophil Absolute 10.37(H) 1.70 - 6.10 x10(3)/mc L [facility] Lymph % 7.4 % [facility] Lymphocytes Abs 0.9 0.9 - 3.2 x10(3)/mc L [facility] Monocyte % 9.7 % [facility] Monocyte Abs 1.2(H) 0.3 - 0.9 x10(3)/mc L [facility] Eos % 0.1 % [facility] Eosinophils Abs 0.0 0.0 - 0.4 x10(3)/mc L [facility] Basophil % 0.2 % [facility] Baso [...] Absolute 0.12(H) 0.00 - 0.04 x10(3)/ L [facility] Blood 02/20/2024 4:23 AM EDT 02/20/2024 4:42 AM EDT Narrative Resulting Agency Comment Spec In Lab Minnie FRENCH HEMATOLOGY CECILIO ALEMAN [facility] [place] [address] * (ABNORMAL) Hemogram (02/20/2024 4:23 AM EDT) White Blood Cell 12.7(H) 4.0 - 9.5 x10(3)/[facility] Red Blood Cell 4.26(L) 4.58 - 5.54 x10(6)/[facility] Hemoglobin 12.3(L) 13.7 - 16.5 g/dL [facility] Hematocrit 37.1(L) 40.5 - 48.5 % [facility] Mean Cell Volume 87.1 82.9 - 93.1 [facility] Mean Cell Hemoglobin 28.9 27.5 - 32.1 pg [facility] Mean Cell Hemoglobin Concentration 33.2 32.0 - 35.7 g/dL [facility] Platelet 88(L) 145 - 357 x10(3)/[facility] RDW Standard Deviation 43.5 36.0 - 45.0 [facility] RDW coefficient of variation 13.7 11.4 - 13.8 % [facility] Mean Platelet Volume 10.2 7.6 - 12.9 [facility] NRBC% auto 0.0 % [facility] NRBC Absolute 0.000 0.000 - 0.000 x10(3)/ L [facility] Blood 02/20/2024 4:23 AM EDT 02/20/2024 4:42 AM EDT Narrative Resulting Agency Comment Spec In Lab Minnie FRENCH HEMATOLOGY CECILIO ALEMAN [facility] [place] [address] * (ABNORMAL) Basic Metabolic Panel (non-fasting) (02/20/2024 [...] CHEMISTRY ORDERABLE S Performing Organization Address City/[facility]/ZIP Co de Phone Number [facility] [place] [address] * Potassium (02/19/2024 3:57 AM EDT) Potassium [...] CHEMISTRY ORDERABLE S Performing Organization Address [facility]/[place] Co de Phone Number [facility] [place] [address] * POCT Glucose (02/18/2024 8:24 AM EDT) Glucose, POC 157 65 - 199 mg/dL [facility] Comment: Supplemental ranges: <140 mg/dL before meals <180 mg/dL all other times of the day Blood 02/18/2024 8:24 AM EDT 02/18/2024 8:24 AM EDT Hayder Graham MD POINT OF CARE TEST ORDERABLES Performing Organization Address [facility]/ZIP Co de Phone Number [facility] [place] [address] * Scan, Peripheral Blood (02/18/2024 1:40 AM EDT) Plat estimate Decreased [facility] RBC Morphology Normal [facility] Blood 02/18/2024 1:40 AM EDT 02/18/2024 1:56 AM EDT Narrative Resulting Agency Comment Spec In Lab Neftali FRENCH HEMATOLOGY ORDER OLE [facility] [place] [address] * (ABNORMAL) Differential, Automated (02/18/2024 1:40 AM EDT) Neutrophil % 87.1 % [facility] Neutrophil Absolute 15.03(H) 1.70 - 6.10 x10(3)/mc L [facility] Lymph % 3.0 % [facility] Lymphocytes Abs 0.5(L) 0.9 - 3.2 x10(3)/mc L [facility] Monocyte % 9.1 % [facility] Monocyte Abs 1.6(H) 0.3 - 0.9 x10(3)/mc L [facility] Eos % 0.0 % [facility] Eosinophils Abs 0.0 0.0 - 0.4 x10(3)/mc L [facility] Basophil % 0.2 % [facility] Baso [...] ORDER OLE [facility] [place] [address] * (ABNORMAL) Hemogram (02/18/2024 1:40 AM EDT) [...] [facility] NRBC% auto 0.0 % [facility] NRBC Absolute 0.000 0.000 - 0.000 x10(3)/mc L [facility] Blood 02/18/2024 1:40 AM EDT 02/18/2024 1:56 AM EDT Narrative Resulting Agency Comment Spec In Lab Neftali FRENCH HEMATOLOGY ORDER OLE [facility] [place] [address] * (ABNORMAL) Basic Metabolic Panel (non-fasting) (02/18/2024 [...] ORDERABLE S [facility] [place] [address] * (ABNORMAL) Troponin (02/18/2024 1:40 AM EDT) [...] [facility] Test Catalog Reference: Fourth [place] Definition of Myocardial Infarction. Journal of the [place] [employer] 2018;72:4828-1725 Blood 02/18/2024 1:40 AM EDT 02/18/2024 1:56 AM EDT Narrative Resulting Agency Comment Spec In Lab Hayder Graham MD CHEMISTRY ORDERABLE S [facility] [place] [address] * POCT Glucose (02/17/2024 8:13 PM EDT) Glucose, POC 142 65 - 199 mg/dL [facility] Comment: Supplemental ranges: <140 mg/dL before meals <180 mg/dL all other times of the day Blood 02/17/2024 8:13 PM EDT 02/17/2024 8:13 PM EDT Hayder Graham MD POINT OF CARE TEST ORDERABLES Performing Organization Address [facility] Co de Phone Number [facility] [place] [address] * POCT Glucose (02/17/2024 5:42 PM EDT) Glucose, POC 160 65 - 199 mg/dL [facility] Comment: Supplemental ranges: <140 mg/dL before meals <180 mg/dL all other times of the day Blood 02/17/2024 5:42 PM EDT 02/17/2024 5:42 PM EDT Hayder Graham MD POINT OF CARE TEST ORDERABLES Performing Organization Address [facility]/[place] Co de Phone Number [facility] [place] [address] * Hemoglobin (02/17/2024 5:42 PM EDT) [facility] Signature Hemoglobin 13.7 13.7 - 16.5 g/dL [facility] Blood 02/17/2024 5:42 PM EDT 02/17/2024 6:10 PM EDT Narrative Resulting Agency Comment Spec In Lab Hayder Graham MD HEMATOLOGY ORDERABL ES Performing Organization Address [facility]/[place] Co de Phone Number [facility] [place] [address] * Potassium (02/17/2024 5:42 PM EDT) [facility] Signature Potassium 4.3 3.5 - 5.0 mmol/L [facility] [...] ORDERABLE S [facility] [place] [address] * (ABNORMAL) BLOOD GAS 2 ARTERIAL (02/17/2024 [...] MEDICAL [facility]ENTER [facility] FIO2 Art 40 % [facility] PF Ratio Art 195 [facility] Blood 02/17/2024 4:18 PM EDT 02/17/2024 4:18 PM EDT Hayder Graham MD POINT OF CARE TEST ORDERABLES [facility] [place] [address] * XR Chest One View (02/17/2024 1:44 PM EDT) Gust WORKSTATION ID [id number] DH RAD Anatomical Region Laterality Modality Chest N/A Digital Radiogra phy Impressions 02/17/2024 2:12 PM EDT 1. ??No definite pleural fluid collection or pneumothorax. 2. ??Right IJ [place] catheter tip terminates in a descending branch [...] signed by: Denzel Hankins MD, [facility] ??([phone]), at 02/17/2024 2:12 PM Narrative 02/17/2024 2:12 PM EDT EXAMINATION: XR CHEST ONE VIEW CLINICAL HISTORY: s/p avr/cabg eval effusions TECHNIQUE: 1 view of the chest COMPARISON: Chest x-ray 01/09/2024, chest CT 02/03/2024 FINDINGS: ET tube tip terminates 5.2 cm above the carlos. Right IJ [place]aila catheter tip terminates in a descending branch [...] cm above the carlos. Right IJ [place]-Ganzcatheter tip terminates in a descending branch of [...] collection or pneumothorax. 2. Right IJ [place] catheter tip terminates in a descending branch [...] signed by: Denzel Hankins MD, [facility]([phone]), at 02/17/2024 2:12 PM Hayder Graham MD [...] MEDICAL CENTER LAB[facility] FIO2 Art 100 % [facility] PF Ratio Art 320 [facility] Blood 02/17/2024 1:31 PM EDT 02/17/2024 1:31 PM EDT Hayder Graham MD POINT OF CARE TEST ORDERABLES [facility] [place] [address] * (ABNORMAL) Coox2 (02/17/2024 1:21 PM EDT) pO2, Coox 44 mmHg [facility] Hgb Blood Gas 13.1(L) 13.7 [...] OF CARE TEST ORDERABLES Performing Organization Address City/[facility]/ZIP Co de Phone Number [facility] [place] [address] * (ABNORMAL) BLOOD GAS 2 ARTERIAL (02/17/2024 [...] CARE TEST ORDERABLES Performing Organization Address [facility]/[place] Co de Phone Number [facility] [place] [address] * (ABNORMAL) Fibrinogen (02/17/2024 12:10 PM EDT) [...] HEMATOLOGY ORDERABLE S Performing Organization Address [facility]/[place] Co de Phone Number [facility] [place] [address] * (ABNORMAL) Thrombin time (02/17/2024 12:10 PM [...] HEMATOLOGY ORDERABLE S Performing Organization Address [facility]/[place] Co de Phone Number [facility] [place] [address] * APTT (02/17/2024 12:10 PM EDT) Partial [...] HEMATOLOGY ORDERABLE S Performing Organization Address [facility]/[place] Co de Phone Number [facility] [place] [address] * (ABNORMAL) Prothrombin Time (02/17/2024 12:10 PM [...] ORDERABLE S [facility] [place] [address] * (ABNORMAL) Hemogram (02/17/2024 12:10 PM EDT) [...] MEDICAL CENTER LAB[facility] NRBC% auto 0.0 % [facility] NRBC Absolute 0.000 0.000 - 0.000 x10(3)/mc L [facility] Blood 02/17/2024 12:1 0 PM EDT 02/17/2024 12:19 PM EDT Narrative Resulting Agency Comment Spec In Lab Tara York MD HEMATOLOGY ORDERABLE S [facility] [place] [address] * (ABNORMAL) BLOOD GAS 2 ARTERIAL (02/17/2024 [...] [facility] Comment: Noted by optical [...] TEST ORDERABLES [facility] [address] [place] [address] * (ABNORMAL) BLOOD GAS 2 ARTERIAL (02/17/2024 [...] [facility] Comment: Noted by optical [...] CARE TEST ORDERABLES Performing Organization Address [facility] de Phone Number [facility] [place] [address] * (ABNORMAL) Hemoglobin and Hematocrit, blood (02/17/2024 [...] HEMATOLOGY ORDERABL ES Performing Organization Address [facility] de Phone Number [facility] [place] [address] * (ABNORMAL) Platelet count (02/17/2024 11:04 AM EDT) Platelet 106(L) 145 - 357 x10(3)/mc L [facility] Immature Plt % 1.6 0.0 - 7.4 % [facility] Comment: Limitation of the Immature Platelet Fraction (IPF)-May be less reliable when the platelet count is less than 82a665/uL due to statistical imprecision. The IPF value [...] in a decreased state of production. References: [employer] The Clinical Value of the Immature Platelet Fraction (IPF) in Cell Recovery Document Number [id number] 03/2011 [employer] The Role of the Immature Platelet Fraction (IPF) in the Differential Diagnosis of Thrombocytopenia, Document MKT-[id number] V002/15/14 Blood 02/17/2024 11:0 4 AM EDT 02/17/2024 11:12 AM EDT Narrative Resulting Agency Comment Spec In Lab Hayder Graham MD HEMATOLOGY ORDERABL ES Performing Organization Address City/[facility]/ZIP Co de Phone Number [facility] [place] [address] * (ABNORMAL) Fibrinogen (02/17/2024 11:04 AM EDT) [...] HEMATOLOGY ORDERABL ES Performing Organization Address City/[facility]/ZIP Co de Phone Number [facility] [place] [address] * (ABNORMAL) BLOOD GAS 2 ARTERIAL (02/17/2024 [...] ORDERABLES [facility] [place] [address] * (ABNORMAL) BLOOD GAS 2 ARTERIAL (02/17/2024 [...] Organization Address City/State/[place] Co de Phone Number [facility] [place] [address] * Surgical Pathology Report (02/17/2024 10:01 AM EDT) Final Diagnosis [id number] ? Location: [facility]; [facility] [place]; The signing pathologist has (i) examined the relevant preparation(s) for the specimen(s) and (ii) rendered or confirmed the diagnosis(es). . ?Surgical Pathology DIAGNOSIS Aortic valve leaflets, excision: Valve leaflets with myxoid degeneration, nodular fibrosis and dystrophic calcifications. Electronically signed by: ?Lindsay FERNANDEZ, Livier Gonzalez Verified: ??02/24/2024 13:49 ??Pathologist Performed at: ??-[facility] [place], [place] [address] Textile Colorist Dyer: Job Brewer MD, FCAP, ??CLIA Certificate: [id number] SPECIMEN(S) SUBMITTED A - Aortic Valve Leaflets, [...] Sections Processing Blocks submitted for decalcification: A1. Vegetable Specker sections in 1 cassette labeled A1. ??ajw 02/24/2024 1:49 PM EDT [facility] AORTIC STRUCTURE / Unknown 02/17/2024 10:01 AM EDT 02/17/2024 10:01 AM EDT Hayder Graham MD PATHOLOGY/[place] [address] * Specimen to Pathology (02/17/2024 10:01 AM EDT) AP Specimen 02/17/2024 10:0 1 AM EDT 02/17/2024 10:01 AM EDT Narrative [facility] - 02/17/2024 10:01 AM EDT Specimen requisition ordered. ??Separate Pathology report to follow Hayder Graham MD PATHOLOGY/CYTOLOGY ORDERABLES [facility] [place] [address] * (ABNORMAL) BLOOD GAS 2 ARTERIAL (02/17/2024 [...] TEST ORDERABLES [facility] [place] [address] * (ABNORMAL) BLOOD GAS 2 VENOUS (02/17/2024 9:34 AM EDT) pH, Venous 7.22(Criti marquez) 7.32 - 7.42 [facility] Comment:Noted by optical instrument assembly supervisor. PCO2, Venous 43 41 - 51 mmHg [facility] Comment:Noted by optical instrument assembly supervisor. PO2, Venous 57(H) 25 - 40 mmHg [facility] Comment:Noted by optical instrument assembly supervisor. Bicarbonate, Venous 17.1 mmol/L [facility] Comment:Noted by optical instrument assembly supervisor. Base Excess, Venous -10.6 mmol/L [facility] Comment:Noted by optical instrument assembly supervisor. Hgb Blood Gas 11.2(L) 13.7 - 16.5 g/dL [facility] Comment:Noted by optical instrument assembly supervisor. Oxyhemoglobin, Venous 86.5 % [facility] Comment:Noted by optical instrument assembly supervisor. Carboxyhemoglob in, Venous 0.3 % [facility] Comment: Noted by optical instrument assembly supervisor. Nonsmokers: 0.5-1.5% COHB Smokers: Variable, but usually less than 10% Toxic: 20-30% COHB Lethal: Greater than 60% COHB Methemoglobin, Venous 0.0 <=1.5 % [facility] Comment:Noted by optical instrument assembly supervisor. Na Whole Blood 156(H) 135 - 145 mmol/L [facility] Comment:Noted by optical instrument assembly supervisor. K Whole Blood 5.5(H) 3.5 - 5.0 mmol/L [facility] Comment: Noted by optical instrument assembly supervisor. Please note: Patients with WBC >100,000 may have falsely elevated Potassium levels. Contact the Clinical Chemistry Laboratory if there are any questions. ICa Whole Blood 1.03(L) 1.15 - 1.33 mmol/L [facility] Comment: Noted by optical instrument assembly supervisor. Note: ??Total bilirubin higher than 20 mg/dL may lead to falsely low ionized calcium. CL Whole Blood 100 98 - 107 mmol/L [facility] Comment:Noted by optical instrument assembly supervisor. Gluc Whole Bld 132 65 - 199 mg/dL [facility] Comment: Noted by optical instrument assembly supervisor. Diabetes: >=200 mg/dL plus symptoms Lactate WB 1.0 0.5 - 2.2 mmol/L [facility] Comment:Noted by optical instrument assembly supervisor. Blood Gas Source Venous [facility] Blood 02/17/2024 9:34 AM EDT 02/17/2024 9:34 AM EDT Hayder Graham MD POINT OF CARE TEST ORDERABLES [facility] [place] [address] * (ABNORMAL) BLOOD GAS 2 ARTERIAL (02/17/2024 [...] OF CARE TEST ORDERABLES Performing Organization Address City/[facility]/ZIP Co de Phone Number [facility] [place] [address] * POCT Glucose (02/17/2024 6:38 AM EDT) Glucose, POC 98 65 - 199 mg/dL [facility] Comment: Supplemental ranges: <140 mg/dL before meals <180 mg/dL all other times of the day Blood 02/17/2024 6:38 AM EDT 02/17/2024 6:38 AM EDT Hayder Graham MD POINT OF CARE TEST ORDERABLES Performing Organization Address [facility]/[place] Co de Phone Number [facility] [place] [address] * Transesophageal Echo/OR (02/17/2024 6:33 AM EDT) [...] TEEprobe was placed atraumatically in the esophagus. MEMA was performed for pre-and post-surgical evaluation of [...] [facility] [...] 02/17/2024, 4: 08 PM Ordering Physician: TARA YOKR Referring Physician: APARNA JORDAN Tara York MD [...] Atrial Fibrillation 0821 (Given - Provider: Reilly Vinecnt RN)2057 (Given - Provider: Polo Britton RN) [...] Routine documented in this encounter Care Teams Swimming Pool Cleaner Relationship Specialty Start Date End Date Aparna Jordan APRN PCP - General Family Medicine 10/21/23 05/26/24 documented as of this encounter
--- OUTSIDE RECORDS SUMMARY | 2024-08-04 10:12 | XMS_ITS | Encounter Summary ---
Author Organization [facility] Address [facility] [place] [address] Care Team Providers Care Graduate School Dean Name Role Phone Vanessa Christian MAURI Primary Care Provider [phone] Encounter Details Date Type Department Care Team (Late st Contact Info) Description 02/14/2024 Orders Only [place]iac [place] [id number] Zak Farmer MD [facility] [place] [address] Coronary artery disease, unspecified vessel or lesion type, unspecified whether angina present, unspecified whether ione or transplanted heart (Primary Dx) Social History [...] (Bezet) 401 ms MUSE SYSTEM Calculated P [place] -12 degrees MUSE SYSTEM Calculated R [place] 24 degrees MUSE SYSTEM Calculated T [place] 74 degrees MUSE SYSTEM INTERPRETATION Sinus bradycardia T wave abnormality, consider anterior ischemia Abnormal ECG When compared with ECG of 17-FEB-2024 13:24, NM interval has decreased T wave inversion now evident in Anterior leads Confirmed by Paul Guzman ([id number]) on 03/15/2024 8:36:23 AM MUSE SYSTEM 03/12/2024 2:35 PM EDT 03/15/2024 8:36 AM EDT Zak Farmer MD ECG ORDERABLES MUSE SYSTEM * XR Chest PA & Lateral (Generic) (03/12/2024 1:42 PM EDT) Pathologist [facility] WORKSTATION ID [id number] [facility] Anatomical Region Laterality Modality Chest N/A Digital [...] questions please contact the health gericare aide that requested your imaging first. ? Electronically signed by: Augie Sanchez MD, [facility] ([phone]), at 03/13/2024 8:28 AM Narrative 03/13/2024 8:28 AM EDT EXAMINATION: XR CHEST PA AND LATERAL (GENERIC) CLINICAL HISTORY: s/p cabg eval effusions I25.10, Atherosclerotic heart disease of ione coronary artery without angina pectoris TECHNIQUE: PA [...] eval effusions I25.10, Atherosclerotic heart disease of ione coronary artery withoutangina pectoris TECHNIQUE: PA and [...] have questions please contactthe health gericare aide that requested your imaging first. Electronically signed by: Augie Sanchez MD, [facility]([phone]), at 03/13/2024 8:28 AM Zak Farmer MD IMG DX ORDERABLES documented in this encounter Visit Diagnoses Diagnosis Coronary artery disease, unspecified vessel or lesion type, unspecified whether angina present, unspecified whether ione or transplanted heart- Primary Coronary artery disease, unspecified vessel or lesion type, unspecified whether angina present, unspecified whether ione or transplanted heart documented in this encounter Care Teams Graduate School Dean Relationship Specialty Start Date End Date Vanessa Christian APRN PCP - General Family Medicine 10/21/23 05/26/24 documented as of this encounter
--- OUTSIDE RECORDS SUMMARY | 2024-08-04 10:12 | XMS_ITS | Encounter Summary ---
[place] [address] Care Team Providers Care Compensation Agent Name Role Phone Vanessa Christian MAURI Primary [...] W RHC (WRVU 5.9) Rima Dickinson MD [facility] [place] [address] [facility] Referral ID Status Reason Start Date Expiration Date Visits Re quested Visits Authorized [id number] 1 1 Encounter Details Date Type Department Care Team (Late st Contact Info) Description 02/03/2024 10:00 AM EDT - 02/03/2024 11:00 AM EDT Surgery [employer] [place] [address] Saira Lua MD CARDIAC CATHETERIZATION Social History [...] lbs Follow-up Visits Follow up with your mold finisher in 2-4 weeks Access Site 'Black and Blue' and tenderness is expected during the first week Call if you noted a mass (lump) greater than the size of a ellis Call Office with any Questions and if you have any of the following Clarence Lane M.D Interventional Director Chemistry Research Tech #: [id number] * Attachments The following attachments cannot be sent through Care Everywhere. * CAD (Coronary Artery Disease): General Info (Bermudian) * Coronary Angiogram: Post-op (Bermudian) documented in this encounter Medications at Time [...] Lane MD - 02/03/2024 11:48 AM EDT [facility] Interventional Cardiology Adult Pre-Procedure H&P Update: Cardiac Catheterization Karlos Anthony [id number] 1960 Chief Complaint: Aortic stenosis HPI: Mr. [...] is inthe chart Clarence Lane MD Interventional Director Chemistry 02/03/24 11:48 AM documented in this encounter Miscellaneous Notes * Brief Op Note - Clarence Lane MD - 02/03/2024 12:51 PM EDT Preliminary Cardiac Catheterization Procedure Note: Patient Name: Karlos Anthony : [id number] MR#: [id number] Case Date: 02/03/2024 Research Tech: Surgeon(s) and Role: * Saira Lua MD [...] Modality Other Narrative 02/12/2024 3:47 PM EDT ?[facility] ? Cardiac Catheterization/Intervention Report ? Patient Name: Patenaude, Karlos ? Procedure Date: 02/03/2024 ? A #: [id number] ? Primary Physician: Mogadam, Emad ? Case #: [id number] ? File Name: [id number] ? Catheterization Order Number: [id number] ? [facility] ? Final Report [place], [place] ? Patient Name: ? Karlos Patenaude ? ID#: ?[id number] ? : ?1960 ? Procedure Date: ? [...] Procedure Note Saira Lua MD - 02/12/2024 [facility] Cardiac Catheterization/Intervention Report Patient Name: Karlos Anthony Procedure Date: 02/03/2024 A #: [id number] Primary Physician: Saira Lua Case #: [id number] File Name: [id number] Catheterization Order Number: [id number] [facility] FinalReport [place], [place] Patient Name: Karlos Anthony ID#:[id number] :1960 Procedure Date: February 03, 2024 Case #: [id number] Room: 5 Case Physician: Saira Lua M.D. Start: 12:29 Fellow: Clarence Lane M.D. Admission:02/03/2024 Referring Physician: aZk Farmer M.D. Procedures: * Coronary Angiography History Karlos Anthony is a 63 year old man. He has hypertension. Thepatient's smoking status is Never. He also has hypercholesterolemia managedwith lipid therapy. Prior to the initiation of this procedure, thepatient was designated as ASA Class III. The [facility] clinical frailty scale is 3: [...] Saira Lua M.D. performed the coronary angiography. aSira Lua M.D. Electronically Signed by: Saira Lua [...] (Bezet) 372 ms MUSE SYSTEM Calculated P [place] 59 degrees MUSE SYSTEM Calculated R [place] 34 degrees MUSE SYSTEM Calculated T [place] 63 degrees MUSE SYSTEM INTERPRETATION Sinus bradycardia [...] MD) documented in this encounter Care Teams Compensation Agent Relationship Specialty Start Date End Date Vanessa Christian APRN PCP - General Family Medicine 10/21/23 05/26/24 documented as of this encounter
--- OUTSIDE RECORDS SUMMARY | 2024-08-04 10:13 | XMS_ITS | Encounter Summary ---
Author Organization [facility] [place] [address] Care Team Providers Care Incident Coordinator Name Role Phone Vanessa Christian APRN Primary Care Provider Encounter Details Date Type Department Care Team (Late st Contact Info) Description 12/26/2023 Notes Only Cardiology at [address] [place] [address] Neftali Ernandez MD [facility] [place] [address] Social History Tobacco Use Types Packs/Day Years [...] 1:37 PM EDT Echocardiogram images reviewed from [facility]. Indeed, the aortic valve appears severely stenotic. Cannotrule out bicuspid valve documented in this encounter Plan of Treatment Not on file documented as of this encounter Visit Diagnoses Not on filedocumented in this encounter Care Teams Incident Coordinator Relationship Specialty Start Date End Date Vanessa Christian APRN PCP - General Family Medicine 10/21/23 05/26/24 documented as of this encounter
--- OUTSIDE RECORDS SUMMARY | 2024-08-04 10:13 | XMS_ITS | Encounter Summary ---
Author Organization [facility] [place] [address] Care Team Providers Care Seaming Machine Operator Name Role Phone Vanessa Christian APRN Primary Care Provider [phone] Encounter Details Date Type Department Care Team (Late st Contact Info) Description 10/21/2023 Abstract Cardiology at [address] [place] [id number] Adam Mayes RN Social History Tobacco Use [...] on filedocumented in this encounter Care Teams Seaming Machine Operator Relationship Specialty Start Date End Date Vanessa Christian APRN PCP - General Family Medicine 10/21/23 05/26/24 documented as of this encounter
--- OUTSIDE RECORDS SUMMARY | 2024-08-04 10:13 | XMS_ITS | Encounter Summary ---
Author Organization [facility] Address [facility] [place] [address] Care Team Providers Care Machine Shop Helper Name Role Phone Vanessa Christian SUPERINTENDENT SYSTEM OPERATION Primary Care Provider [phone] Reason for Referral * Diagnostic Test (Routine) - Closed Specialty Diagnoses / Procedures Referred By Contac t Referred To Contact Radiology Diagnoses Nonrheumatic aortic valve stenosis Procedures CT Chest wo Contrast (Generic) Louisa Reid PA [facility] [place] [address] [facility] [place] [address] Referral ID Status Reason Start Date Expiration Date V isits Requested Visits Authorized [id number] Closed Specialty Service Requested 01/10/2024 07/11/2025 1 1 Encounter Details Date Type Department Care Team (Late st Contact Info) Description 01/09/2024 Orders [place] [address] Zak Farmer MD [facility] [place] [address] Nonrheumatic aortic valve stenosis Social History Tobacco [...] wo Contrast (Generic) (02/03/2024 7:44 AM EDT) [employer] WORKSTATION ID [id number] RAD Anatomical Region Laterality Modality Chest Computed [...] questions please contact the health career technical supervisor that requested your imaging first. ? [...] nodule along the minor fissure (series [id number]) and a 8 mm right lower lobe [...] have questions please contactthe health career technical supervisor that requested your imaging first. Zak Farmer MD IMG CT ORDERABLES documented in this encounter Visit Diagnoses Diagnosis Nonrheumatic aortic valve stenosis Aortic valve disorders Nonrheumatic aortic valve stenosis Aortic valve disorders documented in this encounter Care Teams Machine Shop Helper Relationship Specialty Start Date End Date Vanessa Christian APRN PCP - General Family Medicine 10/21/23 05/26/24 documented as of this encounter
--- OUTSIDE RECORDS SUMMARY | 2024-08-04 10:13 | XMS_ITS | Encounter Summary ---
Author Organization [facility] Address [facility] [place] [address] Care Team Providers Care Prune Washer Name Role Phone Vanessa Christian MAURI Primary Care Provider [phone] Reason for Visit * Consultation (Routine) - Closed Specialty Diagnoses / Procedures Referred By Contac t Referred To Contact Cardiac Surgery Diagnoses Nonrheumatic aortic valve stenosis significant - TAVR ( defers to Card Surg d/t age) Neftali Ernandez MD [facility] [place] [address] Zak Farmer MD [facility] [place] [address] Referral ID Status Reason Start Date Expiration Date V isits Requested Visits Authorized [id number] Closed Consult, Test & Treat 10/21/2023 10/20/2024 1 1 Encounter Details Date Type Department Care Team (Late st Contact Info) Description 01/09/2024 1:40 PM EDT Office [place] [address] Zak Farmer MD [facility] [place] [address] Nonrheumatic aortic valve stenosis Social [...] office. Best personal regards, Zak Farmer MD [phone] In aggregate 55 minutes were spent evaluating [...] who have questions please contact the health farm or ranch animal caretaker that requested your imaging first. ? Electronically signed by: Toby Dave MD, [facility] ([phone]), at 01/09/2024 3:11 PM Narrative 01/09/2024 3:11 [...] patients who have questions please contactthe health farm or ranch animal caretaker that requested your imaging first. Electronically signed by: Toby Dave MD, [facility]([phone]), at 01/09/2024 3:11 PM Zak Farmer MD [...] MD CHEMISTRY ORDERABLE S [facility] [place] [address] * Hepatic Function Panel (01/09/2024 2:58 PM [...] MD CHEMISTRY ORDERABLE S Performing Organization Address [facility] Co de Phone Number [facility] [place] [address] * Prothrombin Time (01/09/2024 2:58 PM EDT) [...] MD HEMATOLOGY ORDERABL ES Performing Organization Address [facility] Co de Phone Number [facility] [place] [address] * Type and Screen Future Surgery, [facility] ONLY) (01/09/2024 2:58 PM EDT) ABORH Type O NEGATIVE [facility] Patient BB History Not Found [facility] Expires at [id number] on: 02-20-2024 [facility] Ab Screen Interp Negative [facility] Blood 01/09/2024 2:58 PM EDT 01/09/2024 2:58 PM EDT Narrative Resulting Agency Comment Spec In Lab Zak Farmer MD BLOOD BANK LAB ORDE ASH Performing Organization Address City/State/[facility] Co de Phone Number [facility] [place] [address] documented in this encounter Visit Diagnoses Diagnosis Nonrheumatic aortic valve stenosis Aortic valve disorders Nonrheumatic aortic valve stenosis Aortic valve disorders documented in this encounter Care Teams Prune Washer Relationship Specialty Start Date End Date Vanessa Christian, RICE CLEANING MACHINE TENDER PCP - General Family Medicine 10/21/23 05/26/24 documented as of this encounter
--- OUTSIDE RECORDS SUMMARY | 2024-08-04 10:13 | XMS_ITS | Encounter Summary ---
Author Organization [facility] [place] [address] Care Team Providers Care Middle School Tutor Name Role Phone Vanessa Christian Lane DOTSON Primary Care Provider [phone] Encounter Details Date Type Department Care Team (Latest Contact Info) Description 01/09/2024 3:00 PM EDT [place] [id number] Nonrheumatic aortic valve stenosis Social History Tobacco Use Types Packs/Day Years Used Date Smoking Tobacco: Former Cigarettes Smokeless Tobacco: Never Comments:Quit 15 + years ago Alcohol Use Standard Drinks/Week Comments Yes 0 (1 standard drink = 0.6 oz pur e alcohol) rare [facility] Inpatient Questions Answer Date Recorded Prevent Contact [...] stenosis TYPE AND SCREEN, SDP (FUTURE SURGERY, [facility] ONLY) Routine 01/09/2024 2:58 [...] Emergency Department [facility] Recheck Order Order Placed [facility] ABORH Type Recheck Completed [facility] Blood 01/09/2024 2:58 PM EDT 01/09/2024 3:08 PM EDT Narrative Resulting Agency Comment Spec In Lab Zak Farmer MD BLOOD BANK LAB ORDE ASH [facility] [place] [address] * Differential, Automated (01/09/2024 2:58 PM EDT) Neutrophil % 70.5 % [facility] Neutrophil Absolute 4.34 1.70 - 6.10 x10(3)/[facility] [place] [facility] LABORATORY Lymph % 18.9 % [facility] Lymphocytes Abs 1.2 0.9 - 3.2 x10(3)/[facility] [place] [facility] LABORATORY Monocyte % 8.0 % [facility] Monocyte Abs 0.5 0.3 - 0.9 x10(3)/[facility] [place] [facility] LABORATORY Eos % 1.6 % [facility] Eosinophils Abs 0.1 0.0 - 0.4 x10(3)/[facility] [place] [facility] LABORATORY Basophil % 0.5 % [facility] Baso Absolute 0.0 0.0 - 0.1 x10(3)/[facility] [place] [facility] LABORATORY Immature Gran % 0.50 % [facility] Comment: Immature granulocytes(IG's)percentage [...] Lab Zak Farmer MD HEMATOLOGY ORDERABL ES [facility] [place] [address] * Hemogram (01/09/2024 2:58 PM EDT) White Blood Cell 6.2 4.0 - 9.5 x10(3)/[facility] [place] [facility] LABORATORY Red Blood Cell 5.53 4.58 - 5.54 x10(6)/[facility] [place] [facility] LABORATORY Hemoglobin 16.1 13.7 - 16.5 g/dL [facility] Hematocrit 46.9 40.5 - 48.5 % [facility] Mean Cell Volume 84.8 82.9 - 93.1 fL [facility] Mean Cell Hemoglobin 29.1 27.5 - 32.1 pg [facility] Mean Cell Hemoglobin Concentration 34.3 32.0 - 35.7 g/dL [facility] Platelet 187 145 - 357 x10(3)/[facility] [place] [facility] LABORATORY RDW Standard Deviation 39.2 36.0 - 45.0 [facility] LABORATORY RDW coefficient of variation 12.6 11.4 - 13.8 % [facility] Mean Platelet Volume 9.5 7.6 - 12.9 [facility] LABORATORY NRBC% auto 0.0 % [facility] NRBC Absolute 0.000 0.000 - 0.000 x10(3)/[facility] [place] [facility] LABORATORY Blood 01/09/2024 2:58 PM EDT 01/09/2024 3:03 PM EDT Narrative Resulting Agency Comment Spec In Lab Zak Farmer MD HEMATOLOGY ORDERABL ES [facility] [place] [address] * Basic Metabolic Panel (non-fasting) (01/09/2024 2:58 [...] MD CHEMISTRY ORDERABLE S Performing Organization Address [facility] Co de Phone Number [facility] [place] [address] * Hepatic Function Panel (01/09/2024 2:58 PM [...] MD CHEMISTRY ORDERABLE S Performing Organization Address [facility] Co de Phone Number [facility] [place] [address] * Prothrombin Time (01/09/2024 2:58 PM EDT) [...] MD HEMATOLOGY ORDERABL ES Performing Organization Address City/[facility]/ZIP Co de Phone Number [facility] [place] [address] * Type and Screen Future Surgery, [facility] ONLY) (01/09/2024 2:58 PM EDT) ABORH Type O NEGATIVE [facility] Patient BB History Not Found [facility] Expires at [id number] on: 02-20-2024 [facility] Ab Screen Interp Negative [facility] Blood 01/09/2024 2:58 PM EDT 01/09/2024 2:58 PM EDT Narrative Resulting Agency Comment Spec In Lab Zak Farmer MD BLOOD BANK LAB ORDE RABLES [facility] [place] [address] documented in this encounter Visit Diagnoses Diagnosis Nonrheumatic aortic valve stenosis Aortic valve disorders documented in this encounter Care Teams Middle School Tutor Relationship Specialty Start Date End Date Vanessa Christian APRN PCP - General Family Medicine 1/15/24 8/20/24 documented as of this encounter
--- OUTSIDE RECORDS SUMMARY | 2024-08-04 10:13 | XMS_ITS | Encounter Summary ---
Author Organization [facility] [place] [address] Care Team Providers Care Ship Boat Or Barge Mate Name Role Phone Vanessa Christian Lane DOTSON Primary Care Provider [phone] Reason for Referral * Diagnostic Test (Routine) - Closed Specialty Diagnoses / Procedures Referred By Contac t Referred To Contact Radiology Diagnoses Nonrheumatic aortic valve stenosis Procedures CT Chest wo Contrast (Generic) Louisa Cho PA [facility] [place] [address] [facility] [place] [address] Referral ID Status Reason Start Date Expiration Date V isits Requested Visits Authorized [id number] Closed Specialty Service Requested 01/10/2024 07/11/2025 1 1 Reason for Visit * Diagnostic Test (Routine) - Closed Specialty Diagnoses / Procedures Referred By Contac t Referred To Contact Radiology Diagnoses Nonrheumatic aortic valve stenosis Procedures CT Chest wo Contrast (Generic) Louisa Cho PA [facility] [place] [address] [facility] [place] [address] Referral ID Status Reason Start Date Expiration Date V isits Requested Visits Authorized [id number] Closed Specialty Service Requested 01/10/2024 07/11/2025 1 1 Encounter Details Date Type Department Care Team (Latest Contact Info) Description 02/03/2024 7:36 AM EDT - 02/03/2024 8:05 AM EDT Hospital Encounter CT Scan at [facility] [place] [place] [address] Zak Farmer MD [facility] [place] [address] Nonrheumatic aortic valve stenosis Discharge Disposition: Home [...] wo Contrast (Generic) (02/03/2024 7:44 AM EDT) [employer] WORKSTATION ID [id number] RAD Anatomical Region Laterality Modality Chest Computed [...] questions please contact the health care program director that requested your imaging first. ? Electronically signed by: Rogerio Wright MD, [facility] ([phone]), at 02/03/2024 10:00 AM Narrative 02/03/2024 10:00 [...] have questions please contactthe health care program director that requested your imaging first. Electronically signed by: Rogerio Wright MD, [facility]([phone]), at 02/03/2024 10:00 AM Zak Farmer MD IMG CT ORDERABLES documented in this encounter Visit Diagnoses Diagnosis Nonrheumatic aortic valve stenosis Aortic valve disorders documented in this encounter Care Teams Ship Boat Or Barge Mate Relationship Specialty Start Date End Date Vanessa Christian APRN PCP - General Family Medicine 10/21/23 05/26/24 documented as of this encounter
--- OUTSIDE RECORDS SUMMARY | 2024-08-04 10:13 | XMS_ITS | Encounter Summary ---
Author Organization [facility] [place] [address] Care Team Providers Care Administrative Support Manager Name Role Phone Vanessa Christian Lane DOTSON Primary Care Provider Encounter Details Date Type Department Care Team (Late st Contact Info) Description 01/09/2024 2:30 PM EDT Clinical Support Same Day at [facility] [place] [phone] Social History Tobacco Use Types Packs/Day Years Used Date Smoking Tobacco: Former Cigarettes Smokeless Tobacco: Never Comments:Quit 15 + years ago Alcohol Use Standard Drinks/Week Comments Yes 0 (1 standard drink = 0.6 oz pur e alcohol) rare [facility] Inpatient Questions Answer Date Recorded [...] you tube link for a video about [facility] cardiac surgery. Instructed to [...] type and screen performed while in the [facility]. Sent to Radiology for chest x-ray. Special medication instructions: None Procedure date: not booked. Darian documented in this encounter Plan of Treatment Not on file documented as of this encounter Visit Diagnoses Not on filedocumented in this encounter Care Teams Administrative Support Manager Relationship Specialty Start Date End Date Vanessa Christian APRN PCP - General Family Medicine 10/21/23 05/26/24 documented as of this encounter
--- OUTSIDE RECORDS SUMMARY | 2024-08-04 10:13 | XMS_ITS | Encounter Summary ---
Author Organization [facility] [place] [address] Care Team Providers Care Hostler Helper Name Role Phone Vanessa Christian APRN Primary Care Provider [phone] Encounter Details Date Type Department Care Team (Late st Contact Info) Description 10/21/2023 Abstract Cardiology at [address] [place] [phone] Adam Mayes RN Social History Tobacco Use [...] on filedocumented in this encounter Care Teams Hostler Helper Relationship Specialty Start Date End Date Vanessa Christian APRN PCP - General Family Medicine 10/21/23 05/26/24 documented as of this encounter
--- OUTSIDE RECORDS SUMMARY | 2024-08-04 10:13 | XMS_ITS | Encounter Summary ---
Author Organization [facility] Address [facility] [address]ana [address]en [place] [id number] Care Team Providers Care Hydraulic Corrugating Machine Operator Name Role Phone Vanessa Christian MAURI Primary Care Provider [phone] Reason for Referral * Consultation (Routine) - Closed Specialty Diagnoses / Procedures Referred By Contac t Referred To Contact Cardiac Surgery Diagnoses Nonrheumatic aortic valve stenosis significant - TAVR ( defers to Card Surg d/t age) Errol Loya MD [facility] [place] [address] Zak Farmer MD [facility] C[place]IOTH[place] [address] Referral ID Status Reason Start Date Expiration Date V isits Requested Visits Authorized [id number] Closed Consult, Test & Treat 10/21/2023 10/20/2024 1 1 Reason for Visit * Reason Comments Chest Pain Shortness of Breath Aortic Stenosis Encounter Details Date Type Department Care Team (Late st Contact Info) Description 10/21/2023 1:20 PM EST Office Visit Cardiology at [address] [address] Errol Loya MD [facility] [place] [address] Nonrheumatic aortic valve stenosis Social History Tobacco [...] findings Gastroesophageal reflux Nevus of face 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 Logistics and preliminary review [...] the meantime will refer to T at [facility] for further evaluation. Logistics and preliminary review [...] disorders documented in this encounter Care Teams Hydraulic Corrugating Machine Operator Relationship Specialty Start Date End Date Vanessa Christian APRN PCP - General Family Medicine 10/21/23 05/26/24 documented as of this encounter
--- OUTSIDE RECORDS SUMMARY | 2024-08-04 10:13 | XMS_ITS | Encounter Summary ---
[place] [address] Care Team Providers Care Roll Scale Man Name Role Phone Victor M Lafleur MD Primary Care Provider [phone] Reason for Visit * Reason Onset Date Comments Referral 09/20/2023 Encounter Details Date Type Department Care Team (Late st Contact Info) Description 09/20/2023 Telephone Cardiology at [address] [address] Karen Billy, document controller Social History Tobacco Use Types Packs/Day Years [...] on filedocumented in this encounter Care Teams Roll Scale Man Relationship Specialty Start Date End Date Victor M Lafleur MD PCP - General 10/02/13 10/20/23 documented as of this encounter
--- OUTSIDE RECORDS SUMMARY | 2024-08-04 10:13 | XMS_ITS | Encounter Summary ---
Author Organization [facility] [place] [address] Care Team Providers Care Telegraph Lineman Name Role Phone Vanessa Christian APRN Primary Care Provider [phone] Encounter Details Date Type Department Care Team (Late st Contact Info) Description 01/10/2024 Orders Only [place] [place] [address] Lawson Napoles PA [facility] [place] [address] Screening for cardiovascular condition; Aortic valve stenosis, [...] unspecified documented in this encounter Care Teams Telegraph Lineman Relationship Specialty Start Date End Date Vanessa Christian APRN PCP - General Family Medicine 10/21/23 05/26/24 documented as of this encounter
--- OUTSIDE RECORDS SUMMARY | 2024-08-04 10:13 | XMS_ITS | Encounter Summary ---
Author Organization [facility] [place] [address] Care Team Providers Care Political Analyst Name Role Phone Vanessa Christian MAURI Primary Care Provider [phone] Reason for Visit * Auth/Cert (Routine) Specialty [...] W RHC (WRVU 5.9) Rima Dickinson MD [facility] [place] [address] [facility] Referral ID Status Reason Start Date Expiration Date Visits Re quested Visits Authorized [id number] 1 1 Encounter Details Date Type Department Care Team (Latest Contact Info) Description 02/03/2024 8:06 AM EDT - 02/03/2024 2:54 PM EDT Hospital Encounter Assistive [place] [address] Rima Dickinson MD [facility] [place] [address] Screening for cardiovascular condition; Aortic valve stenosis, [...] lbs Follow-up Visits Follow up with your plastics fabricator or welder in 2-4 weeks Access Site 'Black and Blue' and tenderness is expected during the first week Call if you noted a mass (lump) greater than the size of a ellis Call Office with any Questions and if you have any of the following Clarence Lane M.D Interventional B2B Sales Executive Rda #: [phone] * Attachments The following attachments cannot be sent through Care Everywhere. * CAD (Coronary Artery Disease): General Info (Polish) * Coronary Angiogram: Post-op (Polish) documented in this encounter Medications at Time [...] MD - 02/03/2024 11:48 AM EDT [facility] Interventional Cardiology Adult Pre-Procedure H&P Update: Cardiac Catheterization Karlos Anthony [id number] 1960 Chief Complaint: Aortic stenosis HPI: Mr. Satna is a 63-year-old man with known aortic [...] is inthe chart Clarence Lane MD Interventional B2B Sales Executive 02/03/24 11:48 AM documented in this encounter Miscellaneous Notes * Brief Op Note - Clarence Lane MD - 02/03/2024 12:51 PM EDT Preliminary Cardiac Catheterization Procedure Note: Patient Name: Karlos Anthony : [id number] MR#: [id number] Case Date: 02/03/2024 Rda: Surgeon(s) and Role: * Saira Lua MD [...] ? Procedure Date: 02/03/2024 ? A #: [id number] ? Primary Physician: Mogadam, Emad ? Case #: [id number] ? File Name: [id number] ? Catheterization Order Number: [id number] ? [facility] ? Final Report [place], [place] ? Patient Name: ? Karlos Anthony ? ID#: ?[id number] ? : ?1960 ? Procedure Date: ? [...] Karlos Anthony Procedure Date: 02/03/2024 A #: [id number] Primary Physician: Saira Lua Case #: [id number] File Name: [id number] Catheterization Order Number: [id number] [facility] FinalReport [place], [place] Patient Name: Karlos Anthony ID#:[id number] :1960 Procedure Date: February 03, 2024 Case [...] was designated as ASA Class III. The [place] clinical frailty scale is 3: Managing Well. [...] (Bezet) 372 ms MUSE SYSTEM Calculated P Lindstrom 59 degrees MUSE SYSTEM Calculated R Lindstrom 34 degrees MUSE SYSTEM Calculated T Lindstrom 63 degrees MUSE SYSTEM INTERPRETATION Sinus bradycardia [...] MD) documented in this encounter Care Teams Political Analyst Relationship Specialty Start Date End Date Vanessa Christian APRN PCP - General Family Medicine 10/21/23 05/26/24 documented as of this encounter
--- OUTSIDE RECORDS SUMMARY | 2024-08-04 10:13 | XMS_ITS | Encounter Summary ---
Author Organization [facility] [place] [address] Care Team Providers Care Poultry Hatchery Laborer Name Role Phone Vanessa Christian APRN Primary Care Provider [phone] Encounter Details Date Type Department Care Team [...] on filedocumented in this encounter Care Teams Poultry Hatchery Laborer Relationship Specialty Start Date End Date Vanessa Christian APRN PCP - General Family Medicine 10/21/23 05/26/24 documented as of this encounter
--- OUTSIDE RECORDS SUMMARY | 2024-08-04 10:13 | XMS_ITS | Encounter Summary ---
Author Organization [facility] [place] [address] Care Team Providers Care Economist Research Assistant Name Role Phone Victor M Lafleur MD Primary Care Provider [phone] Encounter Details Date Type Department Care Team (Late st Contact Info) Description 09/26/2023 Abstract Cardiology at [address] [address] Karen Billy, RN Nonrheumatic aortic [...] face documented in this encounter Care Teams Economist Research Assistant Relationship Specialty Start Date End Date Victor M Lafleur MD PCP - General 10/02/13 10/20/23 documented as of this encounter
--- OUTSIDE RECORDS SUMMARY | 2024-08-04 10:13 | XMS_ITS | Encounter Summary ---
Author Organization [facility] Address [facility] [place] [address] Care Team Providers Care Purchasing Director Name Role Phone Vanessa Christian MAURI Primary Care Provider [phone] Encounter Details Date Type Department Care Team (Latest Contact Info) Description 01/09/2024 3:02 PM EDT - 01/09/2024 11:59 PM EDT Hospital Encounter XRay at [address] [place] [address] Zak Farmer MD [facility] CARDIOTHORACIC [place] [address] Nonrheumatic aortic valve stenosis Discharge Disposition: Home Social History Tobacco Use Types Packs/Day Years Used Date Smoking Tobacco: Former Cigarettes Smokeless Tobacco: Never Comments:Quit 15 + years ago Alcohol Use Standard Drinks/Week Comments Yes 0 (1 standard drink = 0.6 oz pur e alcohol) rare [facility] Inpatient Questions Answer Date Recorded [...] who have questions please contact the health complex care nurse practitioner that requested your imaging first. ? Electronically signed by: Toby Dave MD, [facility] ([phone]), at 01/09/2024 3:11 PM Narrative 01/09/2024 3:11 [...] patients who have questions please contactthe health complex care nurse practitioner that requested your imaging first. Electronically signed by: Toby Dave MD, [facility]([phone]), at 01/09/2024 3:11 PM Zak Farmer MD IMG DX ORDERABLES documented in this encounter Visit Diagnoses Diagnosis Nonrheumatic aortic valve stenosis Aortic valve disorders documented in this encounter Care Teams Purchasing Director Relationship Specialty Start Date End Date Vanessa Christian APRN PCP - General Family Medicine 10/21/23 05/26/24 documented as of this encounter
--- OUTSIDE RECORDS SUMMARY | 2024-08-04 10:13 | XMS_ITS | Data Portability ---
Author Organization [place] [facility] Address [address] [place] [address] Care Team Providers Care Home Performance Laborer Name Role Phone APARNA JORDAN Primary Care Provider [phone] SOFIA MCALLISTER Dentist Assessment No assessment recorded. Plan of Treatment Reminders Order Date Submit Date Provider Last Modified By Organization Details Last Modified Time Details Appointments None recorded . Lab magnesiu m, serum or plasma 024 12/18/19 24 [id number] [facility] (Registration ), [address] [place] [address] [place], [address], 4 14:25:25 BMP, serum or plasma 024 12/18/19 24 [id number] [facility] (Registration ), [address] [place] [address] [place], [address], 4 14:25:24 Referral None recorded . Procedures None recorded . Surgeries None recorded . Imaging None recorded . Medication Orders None recorded . Patient TargetsNo targets recorded. Patient Instructions Encounter Date Encounter Id Patient Instructions Last Modified By Organization Details Last Modified Time 09/19/2023 [id number] SCHEDULE FOLLOW UP IN 3 MONTHS IF YOU DONT HEAR FROM THE CARDIOLOGY DEPT THIS WEEK CALL [facility] AND LET THEM KNOW IF YOUR BREATHING GETS WORSE- GO TO THE ER, DONT OVER DO THINGS PHYSICALLY EXPECT A CALL FROM SARA ZAFAR RE: UPDATING YOUR POWER OF PHYSICAL MEDICINE TEACHER (NEED 2 WITNESSED SIGNATURES) Not available 09/19/2023 09:25:07 12/18/2023 [id number] Karlos: expect a call from the STructural heart team at [facility] drink at least 6 glasses of water a day. checking kidney function and magnesium labs today will mail home. follow up in 3 months for BPH, Aortic stenosis. 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 for Referral None Reported. Results Created Date Observation Date Name Description Value Unit Range Abnormal Flag Note LastModifiedBy Organization Detail LastModifiedTime 12/18/1912/18/2023 LASIC METAB OLIC PANEL calcium 9.3 mg/dL 8.5-10 .1 normal Not Available [address] [place], [address] 12/18/2023 17:09:55 12/18/19 24 12/18/2023 LASIC METAB OLIC PANEL glucose 90 mg/dL 74-106 normal Not Available Baljit montemayor [address] [place], [address] 12/18/2023 17:09:55 12/18/19 24 12/18/2023 LASIC METAB OLIC PANEL BUN 14 mg/dL 7-18 normal Not Available Baljit montemayor [address] [place], [address] 12/18/2023 17:09:55 12/18/19 24 12/18/2023 LASIC METAB OLIC PANEL creatinine 1.0 mg/dL 0.70-1 .30 normal Not Available [address] [place], [address] 12/18/2023 17:09:55 12/18/19 24 12/18/2023 LASIC METAB [...] er-ag ed adult s. Not Available [address] [place], [address] 12/18/2023 17:09:55 12/18/19 24 12/18/2023 LASIC METAB OLIC PANEL sodium 139 mmol/ L 136-14 5 normal Not Available [address] [place], [address] 12/18/2023 17:09:55 12/18/19 24 12/18/2023 LASIC METAB OLIC PANEL potassium 4.9 mmol/ L 3.5-5. 1 normal Not Available [address] [place], [address] 12/18/2023 17:09:55 12/18/19 24 12/18/2023 LASIC METAB OLIC PANEL chloride 104 mmol/ L 98-107 normal Not Available [address] [place], [address] 12/18/2023 17:09:55 12/18/19 24 12/18/2023 LASIC METAB OLIC PANEL CO2 30.9 mmol/ L 21.0-3 2.0 normal Not Available [address] [place], [address] 12/18/2023 17:09:55 12/18/19 24 12/18/2023 LASIC METAB OLIC PANEL anion gap 4.1 mmol/ L 3-11 normal Not Available [address] [place], [address] 12/18/2023 17:09:55 12/18/19 24 12/18/2023 MAGNE SIUM magnesium 1.8 mg/dL 1.8-2. 4 normal Not Available [address] [place], [address] 12/18/2023 17:09:56 07/27/20 24 07/27/2024 LIPID 2 cholesterol 131 mg/dL <200 Not Available [address] [place], [address] 07/27/2024 11:59:38 07/27/20 24 07/27/2024 LIPID 2 triglyceride 162 mg/dL <150 high Not Available [address] [place], [address] 07/27/2024 11:59:38 07/27/2007/27/2024 LIPID 2 HDL cholesterol 35 mg/dL 40-60 low Not Available Dominique blackburn [address] [place], [address] 07/27/2024 11:59:38 07/27/2007/27/2024 LIPID 2 calculated LDL 64 mg/dL <100 Natio nal Kayla stero l Educa tion Progr am (NCEP -ATPI II) class ifica tions : Kayla stero l <200 mg/dL Freda able Kayla stero l 200-2 39 mg/dL Borde rline High Kayla stero l >or=2 40 mg/dL High HDL <40 mg/dL Low HDL >or=6 0 mg/dL High LDL <100 mg/dL Optim al LDL 100-1 29 mg/dL Near Optim al/Ab ove Optim al LDL 130-1 59 mg/dL Borde rline High LDL 160-1 89 mg/dL High LDL >or=1 90 mg/dL Very High *The above refer ence range is for adult s 18 years or older . Not Available [address] [place], [address] 07/27/2024 11:59:38 07/27/2007/27/2024 COMPR EHENS MADYSON METAB OLIC PANEL calcium 9.2 mg/dL 8.5-10 .1 normal Not Available [address] [place], [address] 07/27/2024 11:59:38 07/27/2007/27/2024 COMPR EHENS MADYSON METAB OLIC PANEL glucose 83 mg/dL 74-106 normal Not Available Baljit montemayor [address] [place], [address] 07/27/2024 11:59:38 07/27/2007/27/2024 COMPR EHENS MADYSON METAB OLIC PANEL BUN 20 mg/dL 7-18 high Not Available Baljit montemayor [address] [place], [address] 07/27/2024 11:59:38 07/27/2007/27/2024 COMPR EHENS MADYSON METAB OLIC PANEL creatinine 1.0 mg/dL 0.70-1 .30 normal Not Available [address] [place], [address] 07/27/2024 11:59:38 07/27/2007/27/2024 COMPR EHENS MADYSON METAB OLIC PANEL estimated GFR 83.52 mL/min /1.73M 2 The eGFR is calcu lated from [...] er-ag ed adult s. Not Available [address] [place], [address] 07/27/2024 11:59:38 07/27/2007/27/2024 COMPR EHENS MADYSON METAB OLIC PANEL total protein 6.8 g/dL 6.4-8. 2 normal Not Available [address] [place], [address] 07/27/2024 11:59:38 07/27/2007/27/2024 COMPR EHENS MADYSON METAB OLIC PANEL albumin 3.5 g/dL 3.4-5. 0 normal Not Available [address] [place], [address] 07/27/2024 11:59:38 07/27/2007/27/2024 COMPR EHENS MADYSON METAB OLIC PANEL bilirubin, total 0.77 mg/dL 0.2-1. 0 normal Not Available [address] [place], [address] 07/27/2024 11:59:38 07/27/2007/27/2024 COMPR EHENS MADYSON METAB OLIC PANEL alk phos 84 U/L 46-116 normal Not Available [address] [place], [address] 07/27/2024 11:59:38 07/27/2007/27/2024 COMPR EHENS MADYSON METAB OLIC PANEL sodium 141 mmol/ L 136-14 5 normal Not Available [address] [place], [address] 07/27/2024 11:59:38 07/27/2007/27/2024 COMPR EHENS MADYSON METAB OLIC PANEL potassium 4.8 mmol/ L 3.5-5. 1 normal Not Available [address] [place], [address] 07/27/2024 11:59:38 07/27/2007/27/2024 COMPR EHENS MADYSON METAB OLIC PANEL chloride 105 mmol/ L 98-107 normal Not Available [address] [place], [address] 07/27/2024 11:59:38 07/27/2007/27/2024 COMPR EHENS MADYSON METAB OLIC PANEL CO2 30.9 mmol/ L 21.0-3 2.0 normal Not Available [address] [place], [address] 07/27/2024 11:59:38 07/27/2007/27/2024 COMPR EHENS MADYSON METAB OLIC PANEL anion gap 5.1 mmol/ L 3-11 normal Not Available [address] [place], [address] 07/27/2024 11:59:38 07/27/2007/27/2024 COMPR EHENS MADYSON METAB OLIC PANEL AST 20 U/L 15-37 normal Not Available Baljit montemayor [address] [place], [address] 07/27/2024 11:59:38 07/27/2007/27/2024 COMPR EHENS MADYSON METAB OLIC PANEL ALT 32 U/L 16-63 normal Not Available Baljit montemayor [address] [place], [address] 07/27/2024 11:59:38 07/27/2007/27/2024 CREAT INE KINAS E creatine kinase 133 U/L 39-[address] [facility] [address] , [place], [address] 07/27/2024 11:48:30 09/11/2012/05/2022 trans -thor acic echoc ardio gram (TTE) (PROC ) No observ ation record ed. [email or web address] Xray [address] , [place], [address], 09/13/2023 09:29:52 09/11/20 23 06/01/2022 XR, hip, unila teral No observ ation record ed. [email or web address] Not Available 2022 09:29:19 09/11/2012/06/2019 , echoc ardio gram No observ ation record ed. [email or web address] [facility]- Cardiology [address], [address], 09/13/2023 09:28:49 07/27/20 24 07/27/2024 x-ray imagi ng repor t Flor t Name: Kanu Hugo Unit #: [id number] Loc: DI Orderi ng Provid er: Dc Louis DO Accoun t #: [id number] Status : REG CLI Primar y Care Provid er: Danna Jordan CHICKEN SEXER Date of Exam: 07/08 10/30 Sex: M Admiss ion Date: : 1959 Age: 64 Exam(s ) XR KNEE LT 3V AP,LAT ,NICOLETTE EXAM: XR KNEE LT 3V AP,LAT ,NICOLETTE CLINIC AL HISTOR Y: left knee pain chroni c, M25.56 2. TECHNI QUE: 2D digita l imagin g was perfor med. COMPAR BRANDON: No exams were availa ble for compar brandon FINDIN GS: 3 views No eviden ce of fractu re nor promin ent joint effusi on. There is mild-m oderat e narrow ing of the medial compar tment. Compar tment exhibi ts normal height . Patell ofemor al compar tment unrema rkable . On the latera l view there is a small calcif ic densit y seen on the inner aspect of the patell ar ligame nt of questi onable signif icance . Vascul ar calcif icatio n is noted manager social services iorly in the poplit eal artery . IMPRES MARISOL: Modera te narrow ing of the medial compar tment DATA REPOSI TORY: RADIAT ION DOSE DELIVE RED: Ordere d By: Dc Louis DO CC: ------ ------ ------ ------ ------ ------ ------ ------ ------ ------ ------ ------ - Dictat ed By: Tra Barry M.D. 1757 Transc ribed By: Asha FERNANDEZ,Jacki santos 1757 This is privil eged, confid ential inform ation intend ed only for the provid er named. Any use or distri bution by any person other than this provid er is strict ly prohib ited. If you receiv e this report in error, please notify us immedi ately at and return the origin al report to us at the addres s above. Thank- you. INTERFACE [facility] [address], [place], [address] 07/27/2024 18:10:30 Result Notes None recorded. Problems Name Problem SNOMED Code Status Onset Date Resolution Date Notes Provider Name and Address Organization Details Recorded Time Gastroes ophageal reflux disease without esophagi tis 932715651 Active 2022 Problem Code: K21.9; Problem Code Type: ICD-10; Not Available [facility] 4 05:35:57 Glaucoma 02582304 Active 2022 Problem Code: H40.9; Problem Code Type: ICD-10; Not Available [facility] 4 05:35:57 Hyperlip idemia 34182810 Active 2022 Problem Code: E78.5; Problem Code Type: ICD-10; Not Available [facility] 4 05:35:57 [facility] hyperten marisol 56613250 Active 2022 Problem Code: I10; Problem Code Type: ICD-10; Not Available [facility] 4 05:35:57 Pain of left hip joint 12271309340 9100 Active 2022 Problem Code: M25.552; Problem Code Type: ICD-10; Not Available [facility] 4 05:35:57 Idiopath ic osteoart hritis 455558583 Active 2022 Problem Code: M16.12; Problem Code Type: ICD-10; Not Available [facility] 4 05:35:57 Inguinal hernia 246170179 Active 2022 Problem Code: K40.90; Problem Code Type: ICD-10; Not Available [facility] 4 05:35:57 Heart murmur 61443327 Active 2022 Problem Code: R01.1; Problem Code Type: ICD-10; Not Available [facility] 4 05:35:57 Dyspnea 725242118 Active 2022 Problem Code: R06.09; Problem Code Type: ICD-10; Not Available [facility] 4 05:35:57 Chest pain 75232323 Active 2022 Problem Code: R07.89; Problem Code Type: ICD-10; Not Available [facility] 4 05:35:57 Melanocy tic nevus 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 Active 2022 Problem Code: D22.9; Problem Code Type: ICD-10; Not Available [facility] 4 05:35:57 Aortic stenosis , non-rheu matic 324759091 Active 2022 Problem Code: I35.0; Problem Code Type: ICD-10; Not Available [facility] 4 05:35:58 Aortic stenosis , non-rheu matic 089606308 Completed 202208/14/2023 Problem Code: I35.0; Problem Code Type: ICD-10; Not Available [facility] 4 05:35:58 Indigest ion 569018551 Active 2023 GLORIA CAMP LPN null, [facility] 4 08:48:57 Coronary artery bypass grafts x 3 Active 2023 Kelly Duran RN null, [facility] 4 10:30:01 At increase d risk of atrial fibrilla tion 516707041 Active [address], [place], [address] , [facility] 4 13:52:01 Anemia 763308029 Active [address], [place], [address] , [facility] 4 13:54:39 Problem Notes None recorded. Procedures Surgical History Date Name Laterality Status Provider Name and Address Organization Details Recorded Time coronary artery bypass graft completed Hudson Reeder MA [facility] 03/04/2024 14:54:09 Imaging Results Imaging Date Name Status LastModified by Organization Details LastModified Time 12/05/2022 trans-thoracic echocardiogram (TTE) (PROC) completed [address] Xray [address] , [place], [address], 09/13/2023 09:29:52 06/01/2022 XR, hip, unilateral [place] [address] Information not available 09/13/2023 09:29:19 12/06/2019 US, echocardiogram completed [address]- Cardiology [address] [place] [address] [place], [address], 09/13/2023 09:28:49 07/27/2024 x-ray imaging report completed INTERFACE [address] [place], [address] 07/27/2024 18:10:30 Procedure Notes None recorded. Medical Equipment None [...] es. Take 1 hr prior. Started by [facility]. Not Available Not Available Not Available doxycycli [...] BY MOUTH DAILY 02/24 completed stopped by [facility] Not Available Not Available Not Available brimonidi [...] hours by oral route as needed. active [facility] Not Available Not Available No t Available Aspirin Childrens 81 mg chewable tablet Take 1 tablet by mouth once a day active Not Available Not Available No t Available lisinopri l 5 mg tablet TAKE 1 TABLET BY MOUTH EVERY DAY 02/24 completed stopped by [facility] Not Available Not Available Not Available mupirocin [...] day by oral route. active started by [facility] Not Available Not Available Not Available dorzolami de 2 % (PF) eye drops 1 drop both eyes bid 12/17 completed Not Available Not Available Not Available Vitals Date Recorded Body weight Body mass index (BMI) Body height Heart rate Systolic blood pressure Diastolic blood pressure Provider Name and Address Organization Details Last Updated DateTime 3 78367.7 8 g 23.7 kg/m2 167.64 cm 64 /min 110 mm[Hg] 60 mm[Hg] GLORIA CAMP LPN [facility] 3 08:48:49 Date Recorded Body height Body mass index (BMI) Body weight Heart rate Systolic blood pressure Diastolic blood pressure Provider Name and Address Organization Details Last Updated DateTime 4 167.64 cm 24.6 kg/m2 53369.4 4 g 60 /min 112 mm[Hg] 80 mm[Hg] GLORIA CAMP LPN [facility] 4 08:38:13 Date Recorded Body height Body mass index (BMI) Body weight Heart rate Oxygen saturation Oxygen saturation in Arterial blood by Pulse oximetry Systolic blood pressure Diastolic blood pressure Provider Name and Address Organization Details Last Updated DateTime 4 167.64 cm 22.6 kg/m2 83807.6 5 g 63 /min 99 % 99 % 102 mm[Hg] 54 mm[Hg] Hudson Reeder MA [facility] 4 10:27:28 Social History Question Answer Notes LastModified by Organizat ion Details LastModified Time Tobacco Smoking Status Former Smoker Hudson Reeder MA null, [place] - [facility]. 03/06/2024 10:24:50 Do You Have An Advance Directive? Yes Registered 08/15/23 Updated 01/12/24 Information not available 01/15/2024 When Did You Quit Smoking? 11-15years sincelastc igarette Information not available 03/06/2024 Do You Have A Medical Power Of Airplane Patroller? Yes Received 08/30/23, Scanned. Copies Sent To [facility] And Patient 09/02/23. Information not available 09/02/2023 What Was The Date Of Your Most Recent Tobacco Screening? 03/06/2024 Information not available 03/06/2024 What Is Your Current Pack Years? 30ormorepa ckyears [email or web address] Information not available 03/06/2024 How Much Tobacco Do You Smoke? 1 PPD [email or web address] Information not available 03/06/2024 How Many Years Have You Smoked Tobacco? 40 [email or web address] Information not available 03/06/2024 Do You Or Have You Ever Used Any Other Forms Of Tobacco Or Nicotine? No [email or web address] Information not available 03/06/2024 Sex: Male Functional [...] Recorded Time Tdap 08/26/2013 completed Not Available [facility] 05:30:17 Td(adult) unspecified formulation 11/21/2022 completed Not Available [facility] 10/18/2023 05:30:17 COVID-19, mRNA, LNP-S, PF, 100 mcg/0.5mL dose or 50 mcg/0.25mL dose 01/24/2021 completed Not Available [facility] 10/18/19 05:30:18 COVID-19, mRNA, LNP-S, PF, 100 mcg/0.5mL dose or 50 mcg/0.25mL dose 02/21/2021 completed Not Available [facility] 10/18/19 05:30:18 COVID-19, mRNA, LNP-S, PF, 100 mcg/0.5mL dose or 50 mcg/0.25mL dose 09/11/2021 completed Not Available [facility] 10/18/19 05:30:18 influenza, unspecified formulation 07/26/2021 completed Not Available [facility] 10/18/2023 05:30:18 influenza, unspecified formulation 07/26/2022 completed Not Available [facility] 10/18/2023 05:30:18 influenza, unspecified formulation 07/28/2020 completed Not Available [facility] 10/18/2023 05:30:18 influenza, unspecified formulation 08/05/2019 completed Not Available [facility] 10/18/2023 05:30:18 influenza, unspecified formulation 08/12/2018 completed Not Available [facility] 10/18/2023 05:30:18 Past Encounters Encounter ID Performer Location Encounter Start Date Encounter Closed Date Diagnosis/Indication Diagnosis SNOMED-CT Code Diagnosis ICD10 Code [id number] [address] [address] 09/19/2023 08:39:51 09/19/2023 09:17:42 Aortic valve stenosis 54021088 I35.0 Essential hypertension 65447593 I10 [id number] [address] [address] 12/18/2023 08:23:47 12/18/2023 09:29:09 Aortic stenosis, non-rheumatic 226111699 I35.0 Essential hypertension 24072428 I10 Nonulcer dyspepsia 63699 07 K30 Cramp in lower leg 22206 8009 R25.2 [id number] TATYANA LEDEZMA MD [address] [address] 03/06/2024 10:15:07 03/06/2024 11:14:28 Postoperative visit 468988393 Z48.89 Aortic rosa m nosis, non-rheumatic 938203367 I35.0 Stented co ronary artery 111484337 Z95.5 At [facility] risk of atrial fibrillation 570942057 Z91.89 Anemia 737297067 D64.9 Health Concerns Section Related Observation LastModified by Organization Detai ls LastModified Time None Recorded Concern Status LastModified by Organization Details LastModified Time None Recorded Advance Directives Directive Y: Registered 08/15/23Updated 01/12/24 Payers Encounter Date Sequence Insurance Name Policy Number Policy Alicia Covered Member ID Alicia Member ID Guarantor Name 12/18/2023 1 [facility] [id number] Karlos C Patenaude [id number] Karlos C Patenaude 03/06/2024 1 [employer] [id number] Karlos C Patenaude [id number] Karlos C Patenaude Notes Date Note Type Note Provider Name and Address Organization Details Recorded Time 09/19/2023 text/html HPI Notes: 63-year-old man here for follow-up hypertension, severe aortic stenosis., He works full-time at [employer]. He lives at home with his dog. He has not heard from [facility] cardiology? referred mid-August. He did decrease his lisinopril to 5 mg, home SBPs running 110- 138, no change in slight lightheadedness with change position. He does continue to get dyspnea on exertion, denies chest pain, resolves fairly quickly no peripheral edema. 12/05/2022 transthoracic echocardiogram; there is moderate to severe aortic stenosis with disparate indicators. The calculated valve area is 0.8 cm2 is consistent with severe stenosis. Planimetry confirms valve area to 0.9 cm2. The mean gradient of 28 mmHg and peak velocity of 3.6M/S are consistent with moderate stenosis. There is trivial to mild aortic insufficiency. Aparna lizarraga [facility]. 09/19/2023 13:31:38 12/18/2023 text/html HPI Notes: 63-year-old man here for follow-up hypertension, severe aortic stenosis., He works full-time at [employer]. He lives at home with his dog. 12/05/2022 transthoracic echocardiogram; there is moderate to severe [...] and Ovaltine in his coffee. Aparna lizarraga, [facility]. 12/18/2023 11:43:00 03/06/2024 text/html HPI Notes: Ana Paula marlow is here today for a postop evaluation TATYANA LEDEZMA MD [address], [place], [address], [facility], [facility]. 03/08/2024 13:57:34
--- OUTSIDE RECORDS SUMMARY | 2024-08-04 10:13 | XMS_ITS | Encounter Summary ---
Author Organization [facility] [place] [address] Care Team Providers Care Enameler Name Role Phone Vanessa Christian APRN Primary Care Provider [phone] Encounter Details Date Type Department Care Team [...] on filedocumented in this encounter Care Teams Enameler Relationship Specialty Start Date End Date Vanessa Christian APRN PCP - General Family Medicine 10/21/23 05/26/24 documented as of this encounter
[2024-08-04 10:15] VITALS: BP 140/70; PULSE 71
--- OUTSIDE RECORDS SUMMARY | 2024-08-06 09:55 | XMS_ITS | Encounter Summary ---
Author Organization [facility] Address [facility] [place] [address] Care Team Providers Care Gambling Dealer Name Role Phone Vanessa Christian MAURI Primary Care Provider [phone] Encounter Details Date Type Department Care Team (Latest Contact Info) Description 03/12/2024 1:30 PM EDT - 03/12/2024 11:59 PM EDT Hospital Encounter XRay at [address] [place] [address] Coronary artery disease, unspecified vessel or lesion type, unspecified whether angina present, unspecified whether [place]q or transplanted heart Discharge Disposition: Home Social History Tobacco Use Types Packs/Day Years Used Date Smoking Tobacco: Former Cigarettes Smokeless Tobacco: Never Comments:Quit 15 + years ago Alcohol Use Standard Drinks/Week Comments Yes 0 (1 standard drink = 0.6 oz pur e alcohol) rare [facility] Utilities Answer Date Recorded In the past 12 months has e [employer], gas, oil, or water [employer] threatened to shut off services in your [...] type, unspecified whether angina present, unspecified whether [place]utiiq or transplanted heart documented in this encounter Results * XR Chest PA & Lateral (Generic) (03/12/2024 1:42 PM EDT) WORKSTATION ID [id number] RAD Anatomical Region Laterality Modality Chest N/A [...] questions please contact the health pet care technician that requested your imaging first. ? Electronically signed by: Augie Sanchez MD, [facility] ([phone]), at 03/13/2024 8:28 AM Narrative 03/13/2024 8:28 AM EDT EXAMINATION: XR CHEST PA AND LATERAL (GENERIC) CLINICAL HISTORY: s/p cabg eval effusions I25.10, Atherosclerotic heart disease of alutiiq coronary artery without angina pectoris TECHNIQUE: PA [...] essentially resolved. No pneumothorax. Procedure Note Augie aSnchez MD - 03/13/2024 EXAMINATION: XR CHEST PA AND LATERAL (GENERIC) CLINICAL HISTORY: s/p cabg eval effusions I25.10, Atherosclerotic heart disease of alutiiq coronary artery withoutangina pectoris TECHNIQUE: PA and [...] have questions please contactthe health pet care technician that requested your imaging first. Electronically signed by: Augie Sanchez MD, [facility]([phone]), at 03/13/2024 8:28 AM Zak Farmer MD IMG DX ORDERABLES documented in this encounter Visit Diagnoses Diagnosis Coronary artery disease, unspecified vessel or lesion type, unspecified whether angina present, unspecified whether alutiiq or transplanted heart documented in this encounter Care Teams Gambling Dealer Relationship Specialty Start Date End Date Vanessa Christian APRN PCP - General Family Medicine 10/21/23 05/26/24 documented as of this encounter
--- OUTSIDE RECORDS SUMMARY | 2024-08-06 09:55 | XMS_ITS | Encounter Summary ---
Author Organization [facility] Address [facility] [place] [address] Care Team Providers Care Ion Implant Machine Operator Name Role Phone Vanessa Christian MAURI Primary Care Provider [phone] Encounter Details Date Type Department Care Team [...] on filedocumented in this encounter Care Teams Ion Implant Machine Operator Relationship Specialty Start Date End Date Vanessa Christian APRN PCP - General Family Medicine 10/21/23 05/26/24 documented as of this encounter
--- OUTSIDE RECORDS SUMMARY | 2024-08-06 09:55 | XMS_ITS | Encounter Summary ---
Author Organization [facility] Address [facility] [place] [address] Care Team Providers Care Administrative Office Specialist Name Role Phone Vanessa Christian TRANSFORMATION COACH Primary Care Provider [phone] Encounter Details Date Type Department Care Team (Late st Contact Info) Description 03/12/2024 2:40 PM EDT Office [place] [id number] Zak Farmer MD [facility] [place] [address] Coronary artery disease, unspecified vessel or lesion type, unspecified whether angina present, unspecified whether [place] or transplanted heart Social History Tobacco Use Types Packs/Day Years Used Date Smoking Tobacco: Former Cigarettes Smokeless Tobacco: Never Comments:Quit 15 + years ago Alcohol Use Standard Drinks/Week Comments Yes 0 (1 standard drink = 0.6 oz pur e alcohol) rare [facility] Utilities Answer Date Recorded In the past 12 months has e [employer], gas, oil, or water [employer] threatened to shut off services in [...] 2:40 PM EDT To: MD Vanessa Coles, TRANSFORMATION COACH Re; Karlos Santa ( 1960) We had [...] office. Best personal regards, Zak Farmer MD [phone] documented in this encounter Plan of Treatment Not on file documented as of this encounter Procedures Procedure Name Priority Date/Time Associated Diagnosis Comments EKG 12-LEAD Routine 03/12/2024 2:35 PM EDT Coronary artery disease, unspecified vessel or lesion type, unspecified whether angina present, unspecified whether [place] or transplanted heart documented in this encounter Results * EKG 12 Lead (03/12/2024 2:35 PM EDT) Ventricular rate 59 BPM MUSE SYSTEM Atrial Rate 59 BPM MUSE SYSTEM P-R Interval 190 ms MUSE SYSTEM QRS Duration 92 ms MUSE SYSTEM Q-T Interval 406 ms MUSE SYSTEM QTC Calculated (Bezet) 401 ms MUSE SYSTEM Calculated P [place] -12 degrees MUSE SYSTEM Calculated R [place] 24 degrees MUSE SYSTEM Calculated T [place] 74 degrees MUSE SYSTEM INTERPRETATION Sinus bradycardia T wave abnormality, consider anterior ischemia Abnormal ECG When compared with ECG of 17-FEB-2024 13:24, HI interval has decreased T wave inversion now evident in Anterior leads Confirmed by Paul Guzman ([id number]) on 03/15/2024 8:36:23 AM MUSE SYSTEM 03/12/2024 2:35 PM EDT 03/15/2024 8:36 AM EDT Zak Farmer MD ECG ORDERABLES [employer] SYSTEM documented in this encounter Visit Diagnoses Diagnosis Coronary artery disease, unspecified vessel or lesion type, unspecified whether angina present, unspecified whether [place] or transplanted heart documented in this encounter Care Teams Administrative Office Specialist Relationship Specialty Start Date End Date Vanessa Christian, MAURI PCP - General Family Medicine 10/21/23 05/26/24 documented as of this encounter
--- OUTSIDE RECORDS SUMMARY | 2024-08-06 09:55 | XMS_ITS | Encounter Summary ---
Author Organization [facility] Address [facility] [place] [address] Care Team Providers Care Geologist Petroleum Name Role Phone Gino Vanessa Lane DOTSON Primary Care Provider [phone] Encounter Details Date Type Department Care Team (Late st Contact Info) Description 02/24/2024 Orders Only Cardiac Surgery [facility] [place] [phone] Trudi Lester APRN [facility] [place] [address] Social History Tobacco Use Types Packs/Day Years Used Date Smoking Tobacco: Former Cigarettes Smokeless Tobacco: Never Comments:Quit 15 + years ago Alcohol Use Standard Drinks/Week Comments Yes 0 (1 standard drink = 0.6 oz pur e alcohol) rare [facility] Utilities Answer Date Recorded In the past 12 months has e [employer], gas, oil, or water [employer] threatened to shut off services in your [...] on filedocumented in this encounter Care Teams Geologist Petroleum Relationship Specialty Start Date End Date Vanessa Christian APRN PCP - General Family Medicine 10/21/23 05/26/24 documented as of this encounter
--- OUTSIDE RECORDS SUMMARY | 2024-08-06 09:55 | XMS_ITS | Referral Summary ---
Author Organization [facility] Address [address] [place] [address] Care Team Providers Care Airborne Weapons Technical Manager Name Role Phone Filidayna Vanessa Sherman NP Primary Care Provider [phone] Social History Tobacco Use Types Packs/Day Years Used Date Smoking Tobacco: Never Assessed Sex and Gender Information Value Date Recorded Sex Assigned at Not on file Gender Identity Not on file Sexual Orientation Not on file Plan of Treatment Not on file Care Teams Airborne Weapons Technical Manager Relationship Specialty Start Date End Date Vanessa Christian NP [address] [place] [address] PCP - General Family Medicine - Primary Care 10/07/23
--- OUTSIDE RECORDS SUMMARY | 2024-08-06 09:55 | XMS_ITS | Encounter Summary ---
Author Organization [facility] Address [facility] [place] [address] Care Team Providers Care Hollow Handle Bench Worker Name Role Phone Vanessa Christian MAURI Primary Care Provider [phone] Encounter Details Date Type Department Care Team (Latest Contact Info) Description 05/27/2024 Travel Social History Tobacco Use Types Packs/Day Years Used Date Smoking Tobacco: Former Cigarettes Smokeless Tobacco: Never Comments:Quit 15 + years ago Alcohol Use Standard Drinks/Week Comments Yes 0 (1 standard drink = 0.6 oz pur e alcohol) rare [facility] Utilities Answer Date Recorded In the past [...] on filedocumented in this encounter Care Teams Hollow Handle Bench Worker Relationship Specialty Start Date End Date Vanessa Christian APRN [address] [place] [address] PCP - General Family Medicine 05/27/24 documented as of this encounter
--- OUTSIDE RECORDS SUMMARY | 2024-08-06 09:55 | XMS_ITS | Encounter Summary ---
Author Organization [facility] Address [facility] [place] [address] Care Team Providers Care Staff Readiness Officer Name Role Phone Vanessa Christian MAURI Primary Care Provider [phone] Encounter Details Date Type Department Care Team (Latest Contact Info) Description 05/20/2024 Travel Social History Tobacco Use Types Packs/Day Years Used Date Smoking Tobacco: Former Cigarettes Smokeless Tobacco: Never Comments:Quit 15 + years ago Alcohol Use Standard Drinks/Week Comments Yes 0 (1 standard drink = 0.6 oz pur e alcohol) rare [facility] Utilities Answer Date Recorded In [...] filedocumented in this encounter Care Teams Staff Readiness Officer Relationship Specialty Start Date End Date Vanessa Christian APRN PCP - General Family Medicine 10/21/23 05/26/24 documented as of this encounter
--- OUTSIDE RECORDS SUMMARY | 2024-08-06 09:55 | XMS_ITS | Encounter Summary ---
Author Organization [facility] Address [address] [place] [address] Care Team Providers Care Senior Systems Administrator Name Role Phone Vanessa Christian Lane MONCADA Primary Care Provider [phone] Encounter Details Date Type Department Care Team (Late st Contact Info) Description 10/24/2023 Lab Requisition [facility] Pathology & Laboratory Medicine - [address] [address] Oscar Nichole MD [address] [place] [phone] Factitial dermatitis Social History Tobacco Use Types [...] management options, if applicable. 10/28/2023 11:24 EST [facility] Final Diagnosis A. SKIN OF MORMONISM, LEFT, SHAVE BIOPSY: - Seborrheic keratosis, pigmented. 10/28/2023 11:24 EST [facility] Attestation By the signature below, the attending physician certifies that they have 1) personally conducted a gross and/or microscopic examination of the described specimen(s), and/or personally interpreted the results of laboratory testing of the described specimen(s), and 2) personally rendered or confirmed the above diagnosis. 10/28/2023 11:24 [facility] at [address] Microscopic Description The stratum corneum is thickened by compact and basketweave orthokeratosis with formation of horn pseudocysts. The epidermis is acanthotic with formation of broad and anastomosing trabeculae. The trabeculae are composed of basaloid keratinocytes with round uniform nuclei. The keratinocytes have a variable amount of melanin pigment. 10/28/2023 11:24 [facility] Clinical History Pigmented 2 cm patch; clinical diagnosis code: L98.1 10/28/2023 11:24 [facility] Gross Description A. [...] A3. Nora Anderson 10/25/2023 8:47 10/28/2023 11:24 [facility] Performing Lab [facility] 10/28/2023 11:24 [facility] Scanned Images 10/28/2023 11:24 [facility] Tissue SPECIMEN FROM SKIN / Unknown 10/24/2023 14:30 EST 10/24/2023 22:04 EST Oscar Nichole MD PATHOLOGY ORDERABLES [facility] [address] [place] [address] documented in this encounter Visit Diagnoses Diagnosis Factitial dermatitis Dermatitis factitia (artefacta) documented in this encounter Care Teams Senior Systems Administrator Relationship Specialty Start Date End Date Vanessa Christian NP [address] [place] [address] PCP - General Family Medicine - Primary Care 10/07/23 documented as of this encounter
--- OUTSIDE RECORDS SUMMARY | 2024-08-06 09:55 | XMS_ITS | Clinical Summary ---
Author Organization [facility] Address [facility] [place] [address] Care Team Providers Care Bread Packer Name Role Phone Vanessa hCristian Lane DOTSON Primary Care Provider [phone] Allergies No known active allergies Medications Medication [...] the meantime will refer to [facility] at [facility] for further evaluation. Logistics and preliminary review of TONY were reviewed with patient. - Refer to SHT Hypertension 08/14/2023 Resolved Problems Problem Noted Date Diagnosed Date Resolved Date Nevus of face 09/26/2023 05/27/2024 Overview (09/26/2023): Right jew Chest pressure 08/14/2023 10/21/2023 SILVA (dyspnea on exertion) 08/14/2023 HLD (hyperlipidemia) 08/14/2023 024 Encounters Date Type Department Care Team Description 05/27/2024 11:00 AM EDT Office Visit Cardiology at [address] [place] [address] Neftali Ernandez MD ASCVD (arteriosclerotic cardiovascular disease); Nonrheumatic aortic valve stenosis 05/27/2024 Travel 05/20/2024 Travel from Last 3 Months Social History Tobacco Use Types Packs/Day Years Used Date Smoking Tobacco: Former Cigarettes Smokeless Tobacco: Never Comments:Quit 15 + years ago Alcohol Use Standard Drinks/Week Comments Yes 0 (1 standard drink = 0.6 oz pur e alcohol) rare [facility] Utilities Answer Date Recorded In the past [...] PCV) 2024 Medical Devices Implanted Type Area Bark Press Operator Device Identifier Shelf Expiration Date Model / Serial / Lot Cable,Cut,Edg ,Blnt,Ss,3tpr ([id number]) - [id number] Implanted:Qty : 1 on 02/17/2024 by Zak Farmer MD at [facility] IMPLANTS Midline: Chest [employer] - [id number] 09/02/2028 [id number] / / [id number] Valve Coronary Aortic 23mm Tissue Trnscath Biopros Inspiris ([id number]) ([employer]) - [id number] Implanted:Qty : 1 on 02/17/2024 by Zak Farmer MD at N [facility] IMPLANTS Heart [employer] - TSAI LI 09/15/2027 [id number] / [id number] / Procedures Procedure Name Priority Date/Time Associated [...] (Bezet) 367 ms MUSE SYSTEM Calculated P [place] 12 degrees MUSE SYSTEM Calculated R [place] 27 degrees MUSE SYSTEM Calculated T [place] 62 degrees MUSE SYSTEM INTERPRETATION Sinus bradycardia with 1st degree A-V block Otherwise normal ECG When compared with ECG of 12-MAR-2024 14:35, T wave inversion no longer evident in Anterior leads Confirmed by MD Ernandez Daniel ([id number]) on 06/01/2024 8:36:17 AM MUSE SYSTEM 05/27/2024 [...] Status decision made by: Patient Care Teams Bread Packer Relationship Specialty Start Date End Date Vanessa Christian APRN [address] [place] [address] PCP - General Family Medicine 05/27/24
--- OUTSIDE RECORDS SUMMARY | 2024-08-06 09:55 | XMS_ITS | Encounter Summary ---
Author Organization [facility] Address [facility] [place] [address] Care Team Providers Care Radiation Control Worker Name Role Phone Vanessa Christian Lane DOTSON Primary Care Provider Reason for Visit * Reason Comments Coronary Artery Disease Aortic Stenosis Encounter Details Date Type Department Care Team (Latest Contact Info) Description 05/27/2024 11:00 AM EDT Office Visit Cardiology at [address] [phone] Neftali Ernandez MD [facility] [place] [address] ASCVD (arteriosclerotic cardiovascular disease); Nonrheumatic aortic valve stenosis Social History Tobacco Use Types Packs/Day Years Used Date Smoking Tobacco: Former Cigarettes Smokeless Tobacco: Never Comments:Quit 15 + years ago Alcohol Use Standard Drinks/Week Comments Yes 0 (1 standard drink = 0.6 oz pur e alcohol) rare [facility] Utilities Answer Date Recorded In the past 12 months has e [employer], gas, oil, or water [employer] threatened to shut off services in your [...] disorders documented in this encounter Care Teams Radiation Control Worker Relationship Specialty Start Date End Date Vanessa Christian, MAURI [address] [place] [address] PCP - General Family Medicine 05/27/24 documented as of this encounter
--- OUTSIDE RECORDS SUMMARY | 2024-08-06 09:55 | XMS_ITS | Clinical Summary ---
Author Organization [facility] Address [address] [place] [address] Care Team Providers Care Diversified Crops Supervisor Name Role Phone Vanessa Christian NP Primary Care Provider [phone] Social History Tobacco Use Types Packs/Day Years [...] COVID-19 Vaccine (2022- season) 2024 Care Teams Diversified Crops Supervisor Relationship Specialty Start Date End Date Vanessa Christian NP [address] [place] [phone] PCP - General Family Medicine - Primary Care 10/07/23
--- OUTSIDE RECORDS SUMMARY | 2024-08-06 09:56 | XMS_ITS | Encounter Summary ---
[place] [address] Care Team Providers Care Law Office Receptionist Name Role Phone Aparna Jordan MAURI Primary Care Provider [phone] Reason for Referral * Diagnostic Test (Routine) - New Request Specialty Diagnoses / Procedures Referred By Contac t Referred To Contact Cardiology Diagnoses S/P AVR Procedures Echocardiogram Transthoracic Neftali Menon PA [facility] [place] [address] [facility] [place] [address] Referral ID Status Reason Start Date Expiration Date Visits Requested Visits Authorized [id number] New Request Specialty Service Requested 02/24/2024 02/23/2025 1 1 * Consultation (Routine) - Authorized Specialty Diagnoses / Procedures Referred By Contac t Referred To Contact Cardiology Diagnoses S/P AVR Hayder Graham MD [facility] [place] [address] Cardiac Rehab, [facility] [address] [place] [address] [place] [address] Referral ID Status Reason Start Date Expiration Date Visits Requested Visits Authorized [id number] Authorized Consult, Test & Treat 02/24/2024 08/22/2024 36 36 * Home Health Care (Routine) - Authorized Specialty Diagnoses / Procedures Referred By Sixto mendoza Referred To Contact Diagnoses S/P AVR Hayder Graham MD [facility] [place] [address] Referral ID Status Reason Start Date Expiration Date Visits Requested Visits Authorized [id number] Authorized Consult, Test & Treat 02/24/2024 08/22/2024 [...] ARTERIAL GRAFT (WRVU 7.93) Hayder Graham MD [facility] [place] [address] [facility] Referral ID Status Reason Start Date Expiration Date Visits Re quested Visits Authorized [id number] 1 1 Encounter Details Date Type Department Care Team (Latest Contact Info) Description 02/17/2024 5:43 AM EDT - 02/24/2024 11:23 AM EDT Hospital Encounter Heart and Vascular Unit Level 4 [place] [address] Hayder Graham MD [facility] [place] [address] S/P AVR (Primary Dx); Aortic valve stenosis, etiology of cardiac valve disease unspecified Discharge Disposition: Home with VNA Social History Tobacco Use Types Packs/Day Years Used Date Smoking Tobacco: Former Cigarettes Smokeless Tobacco: Never Comments:Quit 15 + years ago Alcohol Use Standard Drinks/Week Comments Yes 0 (1 standard drink = 0.6 oz pur e alcohol) rare [facility] Utilities Answer Date Recorded In the [...] 1-2 weeks. Patient to follow up with Internet Marketing Assistant, Neftali Ernandez MD , in 2 weeks. Patient to follow up with Cardiac Surgeon, Dr. Hayder Graham, with a chest x-ray, EKG, and Echo. Inpatient Provider Contact Information: [facility] [place] of [place]iac [place] [facility] [place] [address] FAX [phone] Discharge Diagnoses (Hospital Problems) Primary Diagnoses: /CAD [...] 33.75) performed by Hayder Graham MD at [facility] MAIN OR PRO CABG, ARTERY-VEIN, TWO N/A 02/17/2024 @CABG, TWO VENOUS GRAFTS & ARTERIAL GRAFT (WRVU 7.93) performed by Hayder Graham MD at [facility] MAIN OR PRO ENDOSCOPY W/VIDEO-ASST VEIN HARVEST, CABG Left 02/17/2024 ENDOSCOPIC HARVEST VEIN(S) FOR CABG (WRVU 0.31) performed by Hayder Graham MD at [facility] MAIN OR PRO REPLACEMENT PROSTHETIC AORTIC VALVE OPEN W CARDIOPULMONARY BYPASS HOMOGRF/STENT N/A 02/17/2024 @REPLACE AORTIC VALVE, OPEN, W\CPB, W\PROSTHETIC VALVE (WRVU 41.32) performed by Hayder Graham MD at [facility] MAIN OR Prior To Admission Medications [...] insufficiency. He has glaucoma. He used to [employer] until about 15 years ago. He has [...] Hayder Graham and/or the Cardiac Surgery Physician Jigger Operator Team may be reached at . [...] Please refer to the card with the [place] [employer] Guidelines for more information. You [...] Dr. Hayder Graham. You may use a [place] Track or treadmill but avoid any pulling [...] friends, go to a movie, go to religion, etc. Heavy activities: No hunting, skiing, jogging, [...] should resume a low fat, low cholesterol, [place] [employer] Diet. Driving: No driving until [...] while being managed by your PCP and/or Internet Marketing Assistant. For future medication refills, please refer to your PCP and/or Internet Marketing Assistant after your discharge from our service. Thank you REMOVE CHEST TUBE SUTURES ON OR AFTER 03/02/24 Home oxygen therapy: N/A Follow up appointments: You should follow up with your PCP, Aparna Jordan APRN, in 1-2 weeks. Our office will schedule an appointment with your Internet Marketing Assistant, Neftali Ernandez MD , in 2 [...] Future Orders Complete By Expires Echocardiogram Transthoracic [82336 CPT(R)] 03/26/2024 09/25/2024 Process Instructions: Scheduling Instructions: Questions: Where will study be performed?: [facility] Clin[facility] Does the patient have Congenital Heart Disease?: Does patient require sedation?: Sedation rationale: XR Chest PA & Lateral (Generic) [02132 47800 Custom] 03/26/2024 09/25/2024 Process Instructions: Scheduling Instructions: Questions: Portable exam?: Reason for exam and clinical history: s/p avr/cabg Clinical information / jerome questions for radiologist: Stat read required?: Date of injury if applicable: Requested Time: Where will study be performed?: [facility] Radiology Referral to Cardiac Rehab [MBF215 Custom] As directed Process Instructions: If no [...] admission to Home Health. [address] Phone Number: Date of : 1960 Inpatient DOCUMENTATION FOR VNA SERVICES (INCLUDING THOSE PATIENTS WITH MEDICARE COVERAGE REQUIRING HOME VNA SERVICES AND/OR HOSPICE SERVICES) PATIENT'S LOCATION: Karlos Garcia [address] [employer] [phone] Dental Equipment Mechanic's Name: self/family In discussion with the attending physician, it is certified that this patient is under their care and that they, or a Nurse Practitioner, or Physician Jigger Operator who is working directly with them, [...] for services as follows: HOME HEALTH AGENCY: [facility] [address] [place] [address] RN orders: Cardiopulmonary assessment, incisional assessment, assess [...] issues please call the Cardiology Office at [phone] FOR MEDICARE ONLY: (please delete this section [...] APRN [address] / [place] [address] . All VNA agencies which cover the area of patient's residence have been reviewed, either verbally or in writing, and patient/family have chosen the home health care agency noted. Questions: Disciplines Requested: Nursing Physical Therapy Arrangements for VNA/home care: As above. Signed: NEFTALI MENON PA-C [facility] Section of Cardiac [place] [facility] [place] [address] FAX [phone] Date: 02/24/2024 CC: Aparna Jordan, MAURI Jordan, Aparna Sherman APRN [address] [place] [address] documented in this encounter Discharge Instructions * [...] Hayder Graham and/or the Cardiac Surgery Physician Jigger Operator Team may be reached at . [...] Please refer to the card with the [place] [employer] Guidelines for more information. You [...] Dr. Hayder Graham. You may use a [place] Track or treadmill but avoid any pulling [...] friends, go to a movie, go to religion, etc. Heavy activities: No hunting, skiing, jogging, [...] should resume a low fat, low cholesterol, [place] [employer] Diet. Driving: No driving until [...] while being managed by your PCP and/or Internet Marketing Assistant. For future medication refills, please refer to your PCP and/or Internet Marketing Assistant after your discharge from our service. Thank you REMOVE CHEST TUBE SUTURES ON OR AFTER 03/02/24 Home oxygen therapy: N/A Follow up appointments: You should follow up with your PCP, Aparna Jordan APRN, in 1-2 weeks. Our office will schedule an appointment with your Internet Marketing Assistant, Neftali Ernandez MD , in 2 [...] 0600 and on the weekends please page [phone]. * Eric Barahona PA - 02/23/2024 9:27 [...] 0600 and on the weekends please page [phone]. * Tiffanie Owens PTA - 02/22/2024 2:48 [...] d/c for 10 days. 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 * Kelley Hinson, HIGH REACH OPERATOR - 02/21/2024 10:15 AM EDT Physical [...] d/c for 10 days. 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 * Kelley Hinson PTA - 02/20/2024 3:32 [...] at that time Kelley Hinson PTA Pager: [phone] Physical Therapy Inpatient Rehab Department * Louisa [...] 0600 and on the weekends please page [phone]. * Maris Benavides, PT - 02/19/2024 11:22 [...] d/c for 10 days. 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 Precautions/Special Considerations: [...] outlined inthis evaluation. MARIS BENAVIDES, PT Pager: [phone] Physical Therapy Inpatient Rehabilitation Department Time IN / OUT: 7607-0001 Total Time: 38 (eval) minutes; * Antonio [...] 0600 and on the weekends please page [phone]. * Minnie Begum PA - 02/18/2024 8:25 [...] site CDI with SANJANA wrap Tubes/Lines/Drains: RIJ/PAC, [place], Jacky Ctx, L pleural CT, TPW, Delaney [...] 0600 and on the weekends please page [phone]. * Kim Ha RCP - 02/17/2024 2:25 [...] plan since last visit. Hayder Graham MD [phone] Source Note - Hayder Graham MD - [...] insufficiency. He has glaucoma. He used to [employer] until about 15 years ago. He has [...] given written informed consent. Hayder Graham MD [phone] * Hayder Graham MD - 02/17/2024 7:00 [...] given written informed consent. Hayder Graham MD [phone] documented in this encounter Miscellaneous Notes * [...] for follow-up Home Health & Hospice, [address] [place] [address] Cardiac Rehab, [address] [place] [address] Transportation: family or friend will provide Functional status prior to admission: Independent Home Environment: Others in the home: alone. Current Living Arrangements: home/apartment/condo. Accessibility Concerns:a few steps to enter 1 floor home. Current Functional Ability: Assistive Person and Equipment DME used at home: none DME Needed at Discharge: N/A Patient is insured through: Primary Insurance: [employer] Payor: [facility] / Plan: [facility] PPO / Product Type: *No [...] as Appropriate) * Plan of Care - Jzalyn Maldonado RN - 02/21/2024 4:41 PM EDT OUTCOME EVALUATION NOTE: OUTCOME SUMMARY: Pt A/Ox4. See saved tele strips. Incisional pain managed with scheduled Tylenol. Worked with [employer]. Ambulated in the rqoue multiple times during the day. Amio drip [...] anticipated Patient is insured through: Primary Insurance: [employer] Payor: [facility] / Plan: [facility] PPO / Product Type: *No Product type* / Secondary Insurance: N/A Last Physical Therapy Recommendation: home with home health (Str coming to stay for a week or two upon d/c) with to be determined (owns rolling walker, shower seat) Plan for discharge is: Home w/ Services Outpatient Agency/Support Group Needs: Homecare agency Home Health Services: Physical Therapy, Registered Nurse Agency Referrals: [facility]. [address] [place] [address] Transportation: family or friend will provide Barriers to discharge: Discharge planning Plan going forward: Service Care Management will continue to follow and assist with discharge planning and coordination of care as indicated. Anticipated Date of Discharge: 02/22/2024 Rhett Bell RN RN/CM - Cellphone: [phone] Pager: [phone] Covering Service RN/CM * Plan of Care [...] care in [place] must abide by [place] law. The hierarchy [...] (i) The agent with financial power of health care attorney or a conservator appointed in accordance [...] steady place to sleep or slept in regional hospital for respiratory and complex care (including now)?: No In the past 12 months has the [employer], gas, oil, or water [employer] threatened to shut off services in your [...] as: [address] [facility] [address] Physical address: [address] [facility], [address] Social & Family Supports: All names listed [...] Payor: [facility] / Plan: [facility] PPO / Product Type: *No Product type* / Secondary Insurance: N/A ; Prescription Coverage: Yes Preferred Pharmacy: [id number] [address] [place] Status: Patient is a : No Primary Care Provider confirmed: Aparna Jordan, BEHAVIORAL INSTRUCTOR [phone] Patient/Caregiver Goals of Treatment: dc to home Potential Needs for Transition of Care: home health care Agency Referrals: I have met with the patient to: discuss discharge planning needs. provide the [facility], Office of Care Management letter from the Supervisor Customer Records Division pertaining to rehab referrals. provide a letter describing our affiliations within the [facility] and educate about their right to choose where referrals are sent. provide a list of Home Health Agencies / Durable Medical Equipment vendors which serve their preferred geographic area. provided patient with [facility] Star Quality Rating handout. They have requested referrals to: [facility]. [address] [place] [address] Note routed to a Nail Polish Brush Machine Feeder who will communicate referrals to facilities and [...] Reina Greene RN CM, BSN, CMGT- Ext [phone] * Plan of Care - Binta Trinidad [...] Operative Note Patient Name: Karlos Garcia : [id number] MR#: [id number] Case Date: 02/17/2024 Surgeon: Surgeon(s) and Role: * Hayder Graham MD - Primary * Neftali Menon PA - Physician Jigger Operator Preoperative diagnosis: CAD Postoperative diagnosis: CAD, [...] Operative Note Patient Name: Karlos Garcia : [id number] MR#: [id number] Case Date: 02/17/2024 Surgeon: Surgeons and Role: * Hayder Graham MD - Primary * Neftali Menon PA - Physician Jigger Operator Preoperative diagnosis: CAD Postoperative diagnosis: CAD, [...] mL Drains: Mediastinal and Left pleural Disposition: [facility] Procedure Description: The patient was [...] Aortic Valve Open W Cardiopulmonary Bypass Homogrf/Stent (87005) Yes 02/17/2024 7:28 AM EDT CAD Cabg, Artery-Vein, Two (04008) Yes 02/17/2024 7:28 AM EDT CAD Cabg, Arterial, Single (63779) Yes 02/17/2024 7:28 AM EDT CAD Endoscopy W/Video-Asst Vein [place], Cabg (98194) Yes 02/17/2024 7:28 AM EDT CAD POCT [...] CHEMISTRY ORDERABLE S [facility] [place] [address] * (ABNORMAL) Basic Metabolic Panel (non-fasting) (02/23/2024 [...] CHEMISTRY ORDERABLES Performing Organization Address City/[facility]/ZIP Co de Phone Number [facility] [place] [address] * Potassium (02/22/2024 4:30 AM EDT) [facility] Potassium 3.5 3.5 - 5.0 mmol/L [facility]/ZIP Co de Phone Number [facility] [place] [address] * (ABNORMAL) Basic Metabolic Panel (non-fasting) (02/21/2024 [...] LABORATORY Carbon Dioxide Not Perf 22 - [facility] Comment:Add-on request. Samp [...] CHEMISTRY ORDERABLES Performing Organization Address City/[facility]/ZIP Co de Phone Number [facility] [place] [address] * Lactate, whole blood, send to lab ([facility]) (02/21/2024 9:45 AM EDT) [facility] Lactate WB 2.0 0.5 - 2.2 mmol/L [facility] Blood 02/21/2024 9:45 AM EDT 02/21/2024 9:52 AM EDT Narrative Resulting Agency Comment Spec In Lab Hayder Graham MD CHEMISTRY ORDERABLE S Performing Organization Address [facility] Co de Phone Number [facility] [place] [address] * (ABNORMAL) Hepatic Function Panel (02/21/2024 9:45 AM EDT) [facility] Protein, Total 5.7(L) 6.1 - 8.0 [...] [facility]/ZIP Co de Phone Number [facility] [place] [address] * Lipase (02/21/2024 9:45 AM EDT) [facility] Lipase 56 0 - 60 unit/L [facility] Blood 02/21/2024 9:45 AM EDT 02/21/2024 9:52 AM EDT Narrative Resulting Agency Comment Spec In Lab Hayder Graham MD CHEMISTRY ORDERABLE S Performing Organization Address [facility] Co de Phone Number [facility] [place] [address] * Amylase (02/21/2024 9:45 AM EDT) Amylase 69 28 - 100 unit/L [facility] Blood 02/21/2024 9:45 AM EDT 02/21/2024 9:52 AM EDT Narrative Resulting Agency Comment Spec In Lab Hayder Graham MD CHEMISTRY ORDERABLE S Performing Organization Address [facility] Phone Number [facility] [place] [address] * Potassium (02/21/2024 3:08 AM EDT) Potassium 3.8 3.5 - 5.0 mmol/L [facility] [...] CHEMISTRY ORDERABLE S Performing Organization Address [facility] Co de Phone Number [facility] [place] [address] * XR Chest PA & Lateral (Generic) (02/20/2024 10:19 AM EDT) WORKSTATION ID [id number] DH RAD Anatomical Region Laterality Modality Chest N/A Digital Radiogra phy Impressions 02/20/2024 1:11 PM EDT Small pleural effusions. No pneumothorax Thank you for letting us participate in the care of this patient. ??If you are a health care provider and have any questions regarding this report, please contact the number below. ??For patients who have questions please contact the health rn acute care that requested your imaging first. ? Narrative 02/20/2024 1:11 PM EDT EXAMINATION: XR CHEST PA AND LATERAL (GENERIC) CLINICAL HISTORY: s/p AVR/CABGx3 TECHNIQUE: PA and lateral views of the chest COMPARISON: 02/17/2024 FINDINGS: Support devices: Interval removal of [place]aila catheter, endotracheal tube and mediastinal chest tubes The cardiac silhouette is stable status post median sternotomy, CABG and aortic valve replacement. There are small pleural effusions. No pneumothorax. Procedure Note Rogerio Cruz MD - 02/20/2024 EXAMINATION: XR CHEST PA AND LATERAL (GENERIC) CLINICAL HISTORY: s/p AVR/CABGx3 TECHNIQUE: PA and lateral views of the chest COMPARISON: 02/17/2024 FINDINGS: Support devices: Interval removal of [place]a catheter, endotracheal tubeand mediastinal chest tubes The [...] who have questions please contactthe health rn acute care that requested your imaging first. Hayder Graham MD IMG DX ORDERABLES * Scan, Peripheral Blood (02/20/2024 4:23 AM EDT) Pathologist [facility] Plat estimate Decreased [facility] RBC Morphology Normal [facility] Blood 02/20/2024 4:23 AM EDT 02/20/2024 4:42 AM EDT Narrative Resulting Agency Comment Spec In Lab Minnie FRENCH HEMATOLOGY CECILIO ALEMAN [facility] [place] [address] * (ABNORMAL) Differential, Automated (02/20/2024 4:23 AM EDT) [facility] Neutrophil % 81.7 % [facility] Neutrophil Absolute 10.37(H) 1.70 - 6.10 x10(3)/mc L [facility] Lymph % 7.4 % [facility] Lymphocytes Abs 0.9 0.9 - 3.2 x10(3)/mc L [facility] Monocyte % 9.7 % [facility] Monocyte Abs 1.2(H) 0.3 - 0.9 x10(3)/mc L [facility] Eos % 0.1 % [facility] Eosinophils Abs 0.0 0.0 - 0.4 x10(3)/mc L [facility] Basophil % 0.2 % [facility] [...] Absolute 0.12(H) 0.00 - 0.04 x10(3)/mc L [facility] Blood 02/20/2024 4:23 AM EDT 02/20/2024 4:42 AM EDT Narrative Resulting Agency Comment Spec In Lab Minnie FRENCH HEMATOLOGY CECILIO ALEMAN [facility] [place] [address] * (ABNORMAL) Hemogram (02/20/2024 4:23 AM EDT) White Blood Cell 12.7(H) 4.0 - 9.5 x10(3)/mc L [facility] Red Blood Cell 4.26(L) 4.58 - 5.54 x10(6)/mc L [facility] Hemoglobin 12.3(L) 13.7 - 16.5 g/dL [facility] Hematocrit 37.1(L) 40.5 - 48.5 % [facility] Mean Cell Volume 87.1 82.9 - 93.1 fL [facility] Mean Cell Hemoglobin 28.9 27.5 - 32.1 pg [facility] Mean Cell Hemoglobin Concentration 33.2 32.0 - 35.7 g/dL [facility] Platelet 88(L) 145 - 357 x10(3)/mc L [facility] RDW Standard Deviation 43.5 36.0 - 45.0 [facility] RDW coefficient of variation 13.7 11.4 - 13.8 % [facility] Mean Platelet Volume 10.2 7.6 - 12.9 [facility] LABORATORY NRBC% auto 0.0 % [facility] NRBC Absolute 0.000 0.000 - 0.000 x10(3)/mc L [facility] Blood 02/20/2024 4:23 AM EDT 02/20/2024 4:42 AM EDT Narrative Resulting Agency Comment Spec In Lab Minnie FRENCH HEMATOLOGY CECILIO ALEMAN [facility] [place] [address] * (ABNORMAL) Basic Metabolic Panel (non-fasting) (02/20/2024 [...] CHEMISTRY ORDERABLE S Performing Organization Address [facility] Co de Phone Number [facility] [place] [address] * Potassium (02/19/2024 3:57 AM EDT) Potassium [...] CHEMISTRY ORDERABLE S Performing Organization Address [facility] Co de Phone Number [facility] [place] [address] * POCT Glucose (02/18/2024 8:24 AM EDT) Glucose, POC 157 65 - 199 mg/dL [facility] Comment: Supplemental ranges: <140 mg/dL before meals <180 mg/dL all other times of the day Blood 02/18/2024 8:24 AM EDT 02/18/2024 8:24 AM EDT Hayder Graham MD POINT OF CARE TEST ORDERABLES [facility] [place] [address] * Scan, Peripheral Blood (02/18/2024 1:40 AM EDT) Plat estimate Decreased [facility] RBC Morphology Normal [facility] Blood 02/18/2024 1:40 AM EDT 02/18/2024 1:56 AM EDT Narrative Resulting Agency Comment Spec In Lab Neftali FRENCH HEMATOLOGY ORDER OLE Performing Organization Address City/[facility]/ZIP Co de Phone Number [facility] [place] [address] * (ABNORMAL) Differential, Automated (02/18/2024 1:40 AM EDT) [facility] Neutrophil % 87.1 % [facility] Neutrophil Absolute 15.03(H) 1.70 - 6.10 x10(3)/mc L [facility] Lymph % 3.0 % [facility] Lymphocytes Abs 0.5(L) 0.9 - 3.2 x10(3)/mc L [facility] Monocyte % 9.1 % [facility] Monocyte Abs 1.6(H) 0.3 - 0.9 x10(3)/mc L [facility] Eos % 0.0 % [facility] Eosinophils Abs 0.0 0.0 - 0.4 x10(3)/mc L [facility] Basophil % 0.2 % [facility]TER [...] HEMATOLOGY ORDER OLE [facility] [place] [address] * (ABNORMAL) Hemogram (02/18/2024 1:40 AM EDT) White Blood Cell 17.2(H) 4.0 - 9.5 x10(3)/ L [facility] Red Blood [...] Platelet 147 145 - 357 x10(3)/ L [facility] RDW Standard Deviation 39.9 36.0 - 45.0 [facility] RDW coefficient of variation 13.2 11.4 - 13.8 % [facility] Mean Platelet Volume 9.9 7.6 - 12.9 fL [facility] NRBC% auto 0.0 % [facility] NRBC Absolute 0.000 0.000 - 0.000 x10(3)/mc L [facility] Blood 02/18/2024 1:40 AM EDT 02/18/2024 1:56 AM EDT Narrative Resulting Agency Comment Spec In Lab Neftali FRENCH HEMATOLOGY ORDER OLE [facility] [place] [address] * (ABNORMAL) Basic Metabolic Panel (non-fasting) (02/18/2024 [...] [facility]/ZIP Co de Phone Number [facility] [place] [address] * (ABNORMAL) Troponin (02/18/2024 1:40 AM EDT) Pathologist [facility] Troponin-T, High Sensitivity 342(H) <=22 ng/L [facility] [...] can be found in the [facility] Test Catalog Troponin - [facility] Test Catalog Reference: Fourth Leckrone Definition of Myocardial Infarction. Journal of the [place] [employer] 2018;72:2643-5549 Blood 02/18/2024 1:40 AM EDT 02/18/2024 1:56 AM EDT Narrative Resulting Agency Comment Spec In Lab Hayder Graham MD CHEMISTRY ORDERABLE S Performing Organization Address City/[facility]/ZIP Co de Phone Number [facility] [place] [address] * POCT Glucose (02/17/2024 8:13 PM EDT) Glucose, POC 142 65 - 199 mg/dL [facility] Comment: Supplemental ranges: <140 mg/dL before meals <180 mg/dL all other times of the day Blood 02/17/2024 8:13 PM EDT 02/17/2024 8:13 PM EDT Hayder Graham MD POINT OF CARE TEST ORDERABLES Performing Organization Address City/[facility]/ZIP Co de Phone Number [facility] [place] [address] * POCT Glucose (02/17/2024 5:42 PM EDT) Glucose, POC 160 65 - 199 mg/dL [facility] Comment: Supplemental ranges: <140 mg/dL before meals <180 mg/dL all other times of the day Blood 02/17/2024 5:42 PM EDT 02/17/2024 5:42 PM EDT Hayder Graham MD POINT OF CARE TEST ORDERABLES Performing Organization Address City/[facility]/ZIP Co de Phone Number [facility] [place] [address] * Hemoglobin (02/17/2024 5:42 PM EDT) Hemoglobin 13.7 13.7 - 16.5 g/dL [facility] Blood 02/17/2024 5:42 PM EDT 02/17/2024 6:10 PM EDT Narrative Resulting Agency Comment Spec In Lab Hayder Graham MD HEMATOLOGY ORDERABL ES [facility] [place] [address] * Potassium (02/17/2024 5:42 PM EDT) Potassium [...] MD CHEMISTRY ORDERABLE S Performing Organization Address City/State/[facility] Co de Phone Number [facility] [place] [address] * (ABNORMAL) BLOOD GAS 2 ARTERIAL (02/17/2024 [...] [facility] PF Ratio Art 195 [facility] Blood 02/17/2024 4:18 PM EDT 02/17/2024 4:18 PM EDT Hayder Graham MD POINT OF CARE TEST ORDERABLES [facility] [place] [phone] * XR Chest One View (02/17/2024 1:44 PM EDT) [employer] WORKSTATION ID [id number] DH RAD Anatomical Region Laterality Modality Chest N/A Digital Radiogra phy Impressions 02/17/2024 2:12 PM EDT 1. ??No definite pleural fluid collection or pneumothorax. 2. ??Right IJ Valley [place]-Kaila catheter tip terminates in a descending branch [...] have questions please contact the health rn acute care that requested your imaging first. ? Electronically signed by: Denzel Hankins MD, [facility] ??([phone]), at 02/17/2024 2:12 PM Narrative 02/17/2024 2:12 PM EDT EXAMINATION: XR CHEST ONE VIEW CLINICAL HISTORY: s/p avr/cabg eval effusions TECHNIQUE: 1 view of the chest COMPARISON: Chest x-ray 01/09/2024, chest CT 02/03/2024 FINDINGS: ET tube tip terminates 5.2 cm above the carlos. Right IJ [place]-Kaila catheter tip terminates in a descending branch [...] 5.2 cm above the carlos. Right IJ Valley View-Ganzcatheter tip terminates in a descending branch of [...] fluid collection or pneumothorax. 2. Right IJ [place]-Kaila catheter tip terminates in a descending branch ofthe right pulmonary artery. Suggest catheter retraction. 3. Additional support lines and tubes as above. Thank you for letting us participate in the care of this patient. If youare a health care provider and have any questions regarding this report,please contact the number below. For patients who have questions please contactthe health rn acute care that requested your imaging first. Hayder [...] [facility] PF Ratio Art 320 [facility] Blood 02/17/2024 1:31 PM EDT 02/17/2024 1:31 PM EDT Hayder Graham MD POINT OF CARE TEST ORDERABLES Performing Organization Address City/[facility]/ZIP Co de Phone Number [facility] [place] [address] * (ABNORMAL) Coox2 (02/17/2024 1:21 PM EDT) [...] TEST ORDERABLES Performing Organization Address City/[facility] Co de Phone Number [facility] [place] [address] * (ABNORMAL) BLOOD GAS 2 ARTERIAL (02/17/2024 [...] CARE TEST ORDERABLES Performing Organization Address [facility] Co de Phone Number [facility] [place] [address] * (ABNORMAL) Fibrinogen (02/17/2024 12:10 PM EDT) [...] HEMATOLOGY ORDERABLE S Performing Organization Address [facility] Co de Phone Number [facility] [place] [address] * (ABNORMAL) Thrombin time (02/17/2024 12:10 PM [...] HEMATOLOGY ORDERABLE S Performing Organization Address [facility] de Phone Number [facility] [place] [address] * APTT (02/17/2024 12:10 PM EDT) Partial [...] MD HEMATOLOGY ORDERABLE S Performing Organization Address [facility] de Phone Number [facility] [place] [address] * (ABNORMAL) Prothrombin Time (02/17/2024 12:10 PM [...] HEMATOLOGY ORDERABLE S [facility] [place] [address] * (ABNORMAL) Hemogram (02/17/2024 12:10 PM EDT) [...] RDW Standard Deviation 40.2 36.0 - 45.0 [facility] RDW coefficient of variation 12.8 11.4 - 13.8 % [facility] Mean Platelet Volume 9.5 7.6 - 12.9 fL [facility] NRBC% auto 0.0 % [facility] NRBC Absolute 0.000 0.000 - 0.000 x10(3)/mc L [facility] Blood 02/17/2024 12:1 0 PM EDT 02/17/2024 12:19 PM EDT Narrative Resulting Agency Comment Spec In Lab Tara York MD HEMATOLOGY ORDERABLE S [facility] [place] [address] * (ABNORMAL) BLOOD GAS 2 ARTERIAL (02/17/2024 [...] [facility] Comment: Noted by instrument assembly [...] CARE TEST ORDERABLES [facility] [place] [address] * (ABNORMAL) BLOOD GAS 2 ARTERIAL (02/17/2024 [...] [facility] Comment: Noted by instrument assembly [...] CARE TEST ORDERABLES Performing Organization Address [facility] Co de Phone Number [facility] [place] [address] * (ABNORMAL) Hemoglobin and Hematocrit, blood (02/17/2024 [...] HEMATOLOGY ORDERABL ES Performing Organization Address [facility]/ZIP Co de Phone Number [facility] [place] [address] * (ABNORMAL) Platelet count (02/17/2024 11:04 AM EDT) Platelet 106(L) 145 - 357 x10(3)/mc L [facility] Immature Plt % 1.6 0.0 - 7.4 % [facility] Comment: Limitation of the Immature Platelet Fraction (IPF)-May be less reliable when the platelet count is less than 57n365/uL due to statistical imprecision. The IPF value [...] in a decreased state of production. References: [employer] The Clinical Value of the Immature Platelet Fraction (IPF) in Cell Recovery Document Number [id number] 03/2011 [employer] The Role of the Immature Platelet Fraction (IPF) in the Differential Diagnosis of Thrombocytopenia, Document [id number] V002/15/14 P002/17 Blood 02/17/2024 11:0 4 AM EDT 02/17/2024 11:12 AM EDT Narrative Resulting Agency Comment Spec In Lab Hayder Graham MD HEMATOLOGY ORDERABL ES Performing Organization Address [facility] Co de Phone Number [facility] [place] [address] * (ABNORMAL) Fibrinogen (02/17/2024 11:04 AM EDT) [...] Lab Hayder Graham MD HEMATOLOGY ORDERABL ES [facility] [place] [address] * (ABNORMAL) BLOOD GAS 2 ARTERIAL (02/17/2024 [...] CARE TEST ORDERABLES [facility] [place] [address] * (ABNORMAL) BLOOD GAS 2 ARTERIAL (02/17/2024 [...] CARE TEST ORDERABLES [facility] [place] [address] * Surgical Pathology Report (02/17/2024 10:01 AM EDT) Final Diagnosis [id number] ? Location: [facility]; [facility]; The signing pathologist has (i) examined the relevant preparation(s) for the specimen(s) and (ii) rendered or confirmed the diagnosis(es). . ?Surgical Pathology DIAGNOSIS Aortic valve leaflets, excision: Valve leaflets with myxoid degeneration, nodular fibrosis and dystrophic calcifications. Electronically signed by: ?Livier Montoya MD Verified: ??02/24/2024 13:49 ??Pathologist Performed at: ??-[facility] Dept. of Pathology, [place] [address] Supervisor Customer Records Division: Job Brewer MD, AP, ??IA Certificate: [id number] SPECIMEN(S) SUBMITTED A - Aortic Valve Leaflets, [...] Sections Processing Blocks submitted for decalcification: A1. Logging Operations Inspector sections in 1 cassette labeled A1. ??ajw 02/24/2024 1:49 PM EDT [facility] AORTIC STRUCTURE / Unknown 02/17/2024 10:01 AM EDT 02/17/2024 10:01 AM EDT Hayder Graham MD PATHOLOGY/[place] [address] * Specimen to Pathology (02/17/2024 10:01 AM EDT) AP Specimen 02/17/2024 10:0 1 AM EDT 02/17/2024 10:01 AM EDT Narrative [facility] - 02/17/2024 10:01 AM EDT Specimen requisition ordered. ??Separate Pathology report to follow Hayder Graham MD PATHOLOGY/CYTOLOGY ORDERABLES [facility] [place] [address] * (ABNORMAL) BLOOD GAS 2 ARTERIAL (02/17/2024 [...] CARE TEST ORDERABLES [facility] [place] [address] * (ABNORMAL) BLOOD GAS 2 VENOUS (02/17/2024 9:34 AM EDT) pH, Venous 7.22(Criti marquez) 7.32 - 7.42 [facility] Comment:Noted by instrument assembly supervisor. PCO2, Venous 43 41 - 51 mmHg [facility] Comment:Noted by instrument assembly supervisor. PO2, Venous 57(H) 25 - 40 mmHg [facility] Comment:Noted by instrument assembly supervisor. Bicarbonate, Venous 17.1 mmol/L [facility] Comment:Noted by instrument assembly supervisor. Base Excess, Venous -10.6 mmol/L [facility] Comment:Noted by instrument assembly supervisor. Hgb Blood Gas 11.2(L) 13.7 - 16.5 g/dL [facility] Comment:Noted by instrument assembly supervisor. Oxyhemoglobin, Venous 86.5 % [facility] Comment:Noted by instrument assembly supervisor. Carboxyhemoglob in, Venous 0.3 % [facility] Comment: Noted by instrument assembly supervisor. Nonsmokers: 0.5-1.5% COHB Smokers: Variable, but usually less than 10% Toxic: 20-30% COHB Lethal: Greater than 60% COHB Methemoglobin, Venous 0.0 <=1.5 % [facility] Comment:Noted by instrument assembly supervisor. Na Whole Blood 156(H) 135 - 145 mmol/L [facility] Comment:Noted by instrument assembly supervisor. K Whole Blood 5.5(H) 3.5 - 5.0 mmol/L [facility] Comment: Noted by instrument assembly supervisor. Please note: Patients with WBC >100,000 may have falsely elevated Potassium levels. Contact the Clinical Chemistry Laboratory if there are any questions. ICa Whole Blood 1.03(L) 1.15 - 1.33 mmol/L [facility] Comment: Noted by instrument assembly supervisor. Note: ??Total bilirubin higher than 20 mg/dL may lead to falsely low ionized calcium. CL Whole Blood 100 98 - 107 mmol/L [facility] Comment:Noted by instrument assembly supervisor. Gluc Whole Bld 132 65 - 199 mg/dL [facility] Comment: Noted by instrument assembly supervisor. Diabetes: >=200 mg/dL plus symptoms Lactate WB 1.0 0.5 - 2.2 mmol/L [facility] Comment:Noted by instrument assembly supervisor. Blood Gas Source Venous [facility] Blood 02/17/2024 9:34 AM EDT 02/17/2024 9:34 AM EDT Hayder Graham MD POINT OF CARE TEST ORDERABLES [facility] [place] [address] * (ABNORMAL) BLOOD GAS 2 ARTERIAL (02/17/2024 [...] CARE TEST ORDERABLES Performing Organization Address [facility] Co de Phone Number [facility] [place] [address] * POCT Glucose (02/17/2024 6:38 AM EDT) Glucose, POC 98 65 - 199 mg/dL [facility] Comment: Supplemental ranges: <140 mg/dL before meals <180 mg/dL all other times of the day Blood 02/17/2024 6:38 AM EDT 02/17/2024 6:38 AM EDT Hayder Graham MD POINT OF CARE TEST ORDERABLES Performing Organization Address [facility] Co de Phone Number [facility] [place] [phone] * Transesophageal Echo/OR (02/17/2024 6:33 AM EDT) [...] 6 hours upon arrival to Unit. Give TN if unable to take PO, Routine Given [...] dose on Sat02/17/24 at 1400, Until Discontinued, [place] teeth and / or gums. Scan the CHG vial in the Exterity Q-Care Oral Care Kit from floor stock. Ventilator-associated pneumonia prophylaxis For use in ICU/Critical care locations ONLY. Obtain kit from Floor Stock location. Scan CHG vial in the Exterity Q-Care Oral Care Kit, Routine Given 02/17/2024 [...] restart at 50% of previous rate. Call housekeeping attendant if goal not achieved at maximum rate. [...] 25 mg, Oral, ONCE, 1 dose, On [facility] 02/22/24 at 1000, Routine Given 02/22/2024 10:02 AM EDT 25 mg metoprolol tartrate (Lopressor) tablet 50 mg 50 mg, Oral, EVERY 12 HOURS SCHEDULED (2 times per day), First dose (after last modification) on [facility] 02/22/24 at 2100, Until [...] PHENYLephrine and/or vasopressin ineffective. Call pager # [phone] if initiated. Titrate to keep systolic blood [...] 2.0 L/min/M2. Maximum volume 2 L. Call housekeeping attendant for additional fluid orders: pager #[phone]. Rate/Dose Verify 02/18/2024 8:00 AM EDT 1 mL/hr 1 mL/hr Rate/Dose Verify 02/18/2024 6:00 AM EDT 1 mL/hr 1 mL/hr Rate/Dose Verify 02/18/2024 4:00 AM EDT 1 mL/hr 1 mL/hr sodium chloride 0.9% infusion 10-30 mL/hr, Intravenous, DAILY PRN, Starting on Sat02/17/24 at 1307, Until Sat02/18/24 at 0835, Side port TKO rate, per [facility] nursing protocol. Rate/Dose Verify 02/17/2024 [...] Routine documented in this encounter Care Teams Law Office Receptionist Relationship Specialty Start Date End Date Aparna Jordan APRN PCP - General Family Medicine 10/21/23 05/26/24 documented as of this encounter
--- OUTSIDE RECORDS SUMMARY | 2024-08-06 09:56 | XMS_ITS | Encounter Summary ---
Author Organization [facility] Address [facility] [place] [address] Care Team Providers Care Computer Systems Software Engineer Name Role Phone Vanessa Christian MAURI Primary Care Provider [phone] Encounter Details Date Type Department Care Team (Late st Contact Info) Description 02/14/2024 [place] [phone] Zak Farmer MD [facility] [address] [place] [address] Coronary artery disease, unspecified vessel or lesion type, unspecified whether angina present, unspecified whether [place] or transplanted heart (Primary Dx) Social History [...] (Bezet) 401 ms MUSE SYSTEM Calculated P Eads -12 degrees MUSE SYSTEM Calculated R Eads 24 degrees MUSE SYSTEM Calculated T Eads 74 degrees MUSE SYSTEM INTERPRETATION Sinus bradycardia T wave abnormality, consider anterior ischemia Abnormal ECG When compared with ECG of 17-FEB-2024 13:24, [place] interval has decreased T wave inversion now evident in Anterior leads Confirmed by Paul Guzman ([id number]) on 03/15/2024 8:36:23 AM MUSE SYSTEM 03/12/2024 2:35 PM EDT 03/15/2024 8:36 AM EDT Zak Farmer MD ECG ORDERABLES MUSE SYSTEM * XR Chest PA & Lateral (Generic) (03/12/2024 1:42 PM EDT) Pathologist [facility] WORKSTATION ID [id number] [facility] Anatomical Region Laterality Modality Chest N/A Digital [...] have questions please contact the health animal caretaker supervisor that requested your imaging first. ? Electronically signed by: Augie Sanchez MD, [facility] ([phone]), at 03/13/2024 8:28 AM Narrative 03/13/2024 8:28 AM EDT EXAMINATION: XR CHEST PA AND LATERAL (GENERIC) CLINICAL HISTORY: s/p cabg eval effusions I25.10, Atherosclerotic heart disease of [place] coronary artery without angina pectoris TECHNIQUE: PA [...] eval effusions I25.10, Atherosclerotic heart disease of [place] coronary artery withoutangina pectoris TECHNIQUE: PA and [...] who have questions please contactthe health animal caretaker supervisor that requested your imaging first. Electronically signed by: Augie Sanchez MD, [facility]([phone]), at 03/13/2024 8:28 AM Zak Farmer MD IMG DX ORDERABLES documented in this encounter Visit Diagnoses Diagnosis Coronary artery disease, unspecified vessel or lesion type, unspecified whether angina present, unspecified whether [place] or transplanted heart- Primary Coronary artery disease, unspecified vessel or lesion type, unspecified whether angina present, unspecified whether [place] or transplanted heart documented in this encounter Care Teams Computer Systems Software Engineer Relationship Specialty Start Date End Date Vanessa Christian APRN PCP - General Family Medicine 10/21/23 05/26/24 documented as of this encounter
--- OUTSIDE RECORDS SUMMARY | 2024-08-06 09:56 | XMS_ITS | Encounter Summary ---
Author Organization [facility] Address [facility] [place] [address] Care Team Providers Care Investigations Chief Name Role Phone Vanessa Christian PILLOW FILLER Primary Care Provider [phone] Reason for Referral * Diagnostic Test (Routine) - Closed Specialty Diagnoses / Procedures Referred By Contac t Referred To Contact Radiology Diagnoses Nonrheumatic aortic valve stenosis Procedures CT Chest wo Contrast (Generic) Louisa Reid PA [facility] [place] [address] [facility] [place] [address] Referral ID Status Reason Start Date Expiration Date V isits Requested Visits Authorized [id number] Closed Specialty Service Requested 01/10/2024 07/11/2025 1 1 Encounter Details Date Type Department Care Team (Late st Contact Info) Description 01/09/2024 [place] [address] Zak Farmer MD [facility] [place] [address] Nonrheumatic aortic valve stenosis Social History Tobacco [...] wo Contrast (Generic) (02/03/2024 7:44 AM EDT) [employer] WORKSTATION ID [id number] RAD Anatomical Region Laterality Modality Chest Computed [...] questions please contact the health family day carer that requested your imaging first. ? Electronically signed by: Rogerio Wright MD, [facility] ([phone]), at 02/03/2024 10:00 AM Narrative 02/03/2024 10:00 [...] nodule along the minor fissure (series 302 [id number]) and a 8 mm right lower lobe [...] have questions please contactthe health family day carer that requested your imaging first. Electronically signed by: Rogerio Wright MD, [facility]([phone]), at 02/03/2024 10:00 AM Zak Farmer MD IMG CT ORDERABLES documented in this encounter Visit Diagnoses Diagnosis Nonrheumatic aortic valve stenosis Aortic valve disorders Nonrheumatic aortic valve stenosis Aortic valve disorders documented in this encounter Care Teams Investigations Chief Relationship Specialty Start Date End Date Vanessa Christian APRN PCP - General Family Medicine 10/21/23 05/26/24 documented as of this encounter
--- OUTSIDE RECORDS SUMMARY | 2024-08-06 09:56 | XMS_ITS | Encounter Summary ---
Author Organization [facility] [place] [address] Care Team Providers Care Abrasive Grader Helper Name Role Phone Vanessa Christian MAURI Primary Care Provider [phone] Reason for Visit * Auth/Cert (Routine) Specialty [...] (WRVU 7.93) Zak Farmer MD [facility] CARDIOTHORACIC [place] [address] [facility] Referral ID Status Reason Start Date Expiration Date Visits Re quested Visits Authorized [id number] 1 1 Encounter Details Date Type Department Care Team (Late st Contact Info) Description 02/17/2024 7:35 AM EDT Anesthesia Event Main Operating Room [facility] [address] [place] [phone] Roman York MD [facility] [place] [address] Anesthesia Record Procedure Summary Procedure Name Responsible [...] by Sadiq Woo RN PIV 02/17/24; 0715; [id number] catheter system; 18 gauge; cephalic vein (lateral [...] th e electric, gas, oil, or water [employer] threatened to shut off services in your [...] Room / Location: [facility] OR [address] [place] [address] MAIN OR Anesthesia Start: 734 Anesthesia Stop: [...] shown include unfiled device data. Patient Location: [facility] Level of Consciousness: Sedated (Pharmacologic/Intentional) [...] 08/14/2023 ??? Nevus of face 09/26/2023 Right restoration No past surgical history on file. Social [...] mg documented in this encounter Care Teams Abrasive Grader Helper Relationship Specialty Start Date End Date Vanessa Christian APRN PCP - General Family Medicine 10/21/23 05/26/24 documented as of this encounter
--- OUTSIDE RECORDS SUMMARY | 2024-08-06 09:56 | XMS_ITS | Encounter Summary ---
[place] [address] Care Team Providers Care Data Entry Supervisor Name Role Phone Vanessa Christian MAURI Primary Care Provider [phone] Reason for Visit * Auth/Cert (Routine) Specialty [...] 5.9) Rima Dickinson MD [facility] [place] [address] [facility] Referral ID Status Reason Start Date Expiration Date Visits Re quested Visits Authorized [id number] 1 1 Encounter Details Date Type Department Care Team (Late st Contact Info) Description 02/03/2024 10:00 AM EDT - 02/03/2024 11:00 AM EDT Surgery [place] [address] Saira Lua MD CARDIAC CATHETERIZATION Social History [...] lbs Follow-up Visits Follow up with your outside maintenance worker in 2-4 weeks Access Site 'Black and Blue' and tenderness is expected during the first week Call if you noted a mass (lump) greater than the size of a ellis Call Office with any Questions and if you have any of the following Clarence Lane M.D Interventional Primer Charger Hammer Smith #: [phone] * Attachments The following attachments cannot be sent through Care Everywhere. * CAD (Coronary Artery Disease): General Info (Panamanian) * Coronary Angiogram: Post-op (Panamanian) documented in this encounter Medications at Time [...] 02/03/2024 11:48 AM EDT [facility] Interventional Cardiology Adult Pre-Procedure H&P Update: Cardiac Catheterization Karlos Anthony [id number] 1960 Chief Complaint: Aortic stenosis HPI: Mr. [...] is inthe chart Clarence Lane MD Interventional Primer Charger 02/03/24 11:48 AM documented in this encounter Miscellaneous Notes * Brief Op Note - Clarence Lane MD - 02/03/2024 12:51 PM EDT Preliminary Cardiac Catheterization Procedure Note: Patient Name: Karlos Anthony : [id number] MR#: [id number] Case Date: 02/03/2024 Hammer Smith: Surgeon(s) and Role: * Saira Lua MD [...] Modality Other Narrative 02/12/2024 3:47 PM EDT ?[facility] ? Cardiac Catheterization/Intervention Report ? Patient Name: Patenaude, Karlos ? Procedure Date: 02/03/2024 ? A #: [id number] ? Primary Physician: Mogadam, Emad ? Case #: [id number] ? File Name: [id number] ? Catheterization Order Number: [id number] ? [facility] ? Final Report [place], [place] ? Patient Name: ? Karlos Patenaude ? ID#: [id number] ? : ?1960 ? Procedure Date: ? [...] Procedure Note Saira Lua MD - 02/12/2024 [facility] Cardiac Catheterization/Intervention Report Patient Name: Karlos Anthony Procedure Date: 02/03/2024 A #: [id number] Primary Physician: Saira Lua Case #: [id number] File Name: [id number] Catheterization Order Number: [id number] [facility] FinalReport [place], [place] Patient Name: Karlos Anthony ID#:[id number] :1960 Procedure Date: February 03, 2024 Case [...] designated as ASA Class III. The [facility] clinical frailty scale is 3: Managing [...] (Bezet) 372 ms MUSE SYSTEM Calculated P Mildred 59 degrees MUSE SYSTEM Calculated R Mildred 34 degrees MUSE SYSTEM Calculated T Mildred 63 degrees MUSE SYSTEM INTERPRETATION Sinus bradycardia [...] MD) documented in this encounter Care Teams Data Entry Supervisor Relationship Specialty Start Date End Date Vanessa Christian APRN PCP - General Family Medicine 10/21/23 05/26/24 documented as of this encounter
--- OUTSIDE RECORDS SUMMARY | 2024-08-06 09:56 | XMS_ITS | Encounter Summary ---
Author Organization [facility] [place] [address] Care Team Providers Care Heel Former Name Role Phone Vanessa Christian APRN Primary Care Provider [phone] Encounter Details Date Type Department Care Team (Late st Contact Info) Description 01/10/2024 Orders [place] [id number] Lawson Napoles PA [facility] [place] [address] Screening for cardiovascular condition; Aortic valve stenosis, [...] unspecified documented in this encounter Care Teams Heel Former Relationship Specialty Start Date End Date Vanessa Christian APRN PCP - General Family Medicine 10/21/23 05/26/24 documented as of this encounter
--- OUTSIDE RECORDS SUMMARY | 2024-08-06 09:56 | XMS_ITS | Encounter Summary ---
[facility] Organization [facility] [place] [address] Care Team Providers Care Auto Body Mechanic Name Role Phone Aparna Jordan MAURI Primary Care Provider [phone] Reason for Visit * Auth/Cert (Routine) Specialty [...] ARTERIAL GRAFT (WRVU 7.93) Hayder Graham MD [facility] [place] [address] RUST Referral ID Status Reason Start Date Expiration Date Visits Re quested Visits Authorized [id number] 1 1 Encounter Details Date Type Department Care Team (Late st Contact Info) Description 02/17/2024 7:30 AM EDT - 02/17/2024 1:26 PM EDT Surgery [place] [id number] Hayder Graham MD [facility] [place] [address] ENDOSCOPIC HARVEST VEIN(S) FOR CABG (WRVU 0.31) [...] Patient Age: 63 y.o. Birthdate: 1960 Language: Egyptian Race: White Ethnicity: Not nor Admit Date: 02/17/2024 Discharge Date: 02/24/24 Attending Physician: Hayder Graham MD Follow-up Recommendations for Providers: Please continue routine management of cardiovascular risk factors including blood pressure, lipids,glucose, etc. Please note any changes to medications. Patient to follow up with PCP, Aparna Jordan APRN, in 1-2 weeks. Patient to follow up with Concrete Mixing Plant Superintendent, Neftali Ernandez MD , in 2 weeks. Patient to follow up with Cardiac Surgeon, Dr. Hayder Graham, with a chest x-ray, EKG, and Echo. Inpatient Provider Contact Information: [facility] [place] of [place] [facility] [place] [address] FAX [phone] Discharge Diagnoses (Hospital Problems) Primary Diagnoses: /CAD [...] insufficiency. He has glaucoma. He used to bacNykaa until about 15 years ago. He has undergone prior herniorrhaphy. 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 Major Procedures/Operations: 02/17/24 s/p avr/cabgx3 CABG x 3 JOSE->LAD SVG->dRCA SVG->OM1 EVH from LLE AVR with a 23 mm Inspiris Bioprosthesis Hospital Course: Karlos Garcia was admitted to [facility] on 02/17/2024 via the Same Day Program. [...] Hayder Graham and/or the Cardiac Surgery Physician Digital Press Operator Team may be reached at . [...] Please refer to the card with the [place] Heart Association Guidelines for more information. You [...] Dr. Hayder Graham. You may use a Mcfall Track or treadmill but avoid any pulling [...] should resume a low fat, low cholesterol, [place] Heart Association Diet. Driving: No driving until [...] while being managed by your PCP and/or Concrete Mixing Plant Superintendent. For future medication refills, please refer to your PCP and/or Concrete Mixing Plant Superintendent after your discharge from our service. Thank you REMOVE CHEST TUBE SUTURES ON OR AFTER 03/02/24 Home oxygen therapy: N/A Follow up appointments: You should follow up with your PCP, Aparna Jordan APRN, in 1-2 weeks. Our office will schedule an appointment with your Concrete Mixing Plant Superintendent, Neftali Ernandez MD , in 2 weeks. [...] Future Orders Complete By Expires Echocardiogram Transthoracic [43090 CPT(R)] 03/26/2024 09/25/2024 Process Instructions: Scheduling Instructions: Questions: Where will study be performed?: [facility] Does the patient have Congenital Heart Disease?: Does patient require sedation?: Sedation rationale: XR Chest PA & Lateral (Generic) [78108 67773 Custom] 03/26/2024 09/25/2024 Process Instructions: Scheduling Instructions: Questions: Portable exam?: Reason for exam and clinical history: s/p avr/cabg Clinical information / jerome questions for radiologist: Stat read required?: Date of injury if applicable: Requested Time: Where will study be performed?: [facility] Radiology Referral to Cardiac Rehab [GNX885 Custom] As directed Process Instructions: If no [...] admission to Home Health. [address] Phone Number: Date of : 1960 Inpatient DOCUMENTATION FOR VNA SERVICES (INCLUDING THOSE PATIENTS WITH MEDICARE COVERAGE REQUIRING HOME VNA SERVICES AND/OR HOSPICE SERVICES) PATIENT'S LOCATION: Karlos Garcia [address] [email or web address] [phone] Excel Vba Developer's Name: self/family In discussion with the attending physician, it is certified that this patient is under their care and that they, or a Nurse Practitioner, or Physician Digital Press Operator who is working directly with them, [...] for services as follows: HOME HEALTH AGENCY: [facility] [address] [place] [address] RN orders: Cardiopulmonary assessment, incisional assessment, assess [...] issues please call the Cardiology Office at [phone] FOR MEDICARE ONLY: (please delete this section [...] PA-C [facility] Section of [place]iac [place] [facility] [place] [address] FAX [phone] Date: 02/24/2024 CC: Aparna Jordan, MAURI Jordan, Aparna Sherman APRN [address] [place] [address] documented in this encounter Discharge Instructions * [...] Hayder Graham and/or the Cardiac Surgery Physician Digital Press Operator Team may be reached at . [...] Please refer to the card with the [place] Heart Association Guidelines for more information. You [...] Dr. Hayder Graham. You may use a Mcfall Track or treadmill but avoid any pulling [...] should resume a low fat, low cholesterol, [place] Heart Association Diet. Driving: No driving until [...] while being managed by your PCP and/or Concrete Mixing Plant Superintendent. For future medication refills, please refer to your PCP and/or Concrete Mixing Plant Superintendent after your discharge from our service. Thank you REMOVE CHEST TUBE SUTURES ON OR AFTER 03/02/24 Home oxygen therapy: N/A Follow up appointments: You should follow up with your PCP, Aparna Jordan APRN, in 1-2 weeks. Our office will schedule an appointment with your Concrete Mixing Plant Superintendent, Neftali Ernanedz MD , in 2 weeks. You have [...] 0600 and on the weekends please page [phone]. * Eric Barahona PA - 02/23/2024 9:27 [...] 0600 and on the weekends please page [phone]. * Tiffanie Owens, SUPERVISORY TRAINING SPECIALIST - 02/22/2024 2:48 PM EDT Physical Therapy [...] Pt reports his dtr is coming from [place] to stay upon d/c for 10 days. 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 He drives. He works Precautions/Special Considerations: [...] LRAD and supervision Time IN / OUT: 1160-2828 Total Time: 30 minutes; TEFx2 Tiffanie Owens Pager: [phone] Physical Therapy Inpatient Rehabilitation Department * Romeo [...] 0600 and on the weekends please page [phone]. * Kelley Hinson SUPERVISORY TRAINING SPECIALIST - 02/21/2024 10:15 AM EDT Physical [...] Pt reports his dtr is coming from [place] to stay upon d/c for 10 days. 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 He drives. He works Precautions/Special Considerations: [...] LRAD and supervision Time IN / OUT: 5728-9753 Total Time: 25 minutes; TEF 2 Kelley [...] 0600 and on the weekends please page [phone]. * Kelley Hinson PTA - 02/20/2024 3:32 [...] at that time Kelley Hinson PTA Pager: [phone] Physical Therapy Inpatient Rehab Department * Louisa [...] 0600 and on the weekends please page [phone]. * Maris Benavides, PT - 02/19/2024 11:22 [...] Pt reports his dtr is coming from [place] to stay upon d/c for 10 days. 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 He drives. He works. Precautions/Special Considerations: [...] outlined inthis evaluation. MARIS BENAVIDES, PT Pager: [phone] Physical Therapy Inpatient Rehabilitation Department Time IN / OUT: 5037-4162 Total Time: 38 (eval) minutes; * Antonio [...] 0600 and on the weekends please page [phone]. * Kim Ha RCP - 02/17/2024 2:25 [...] plan since last visit. Hayder Graham MD [phone] Source Note - Hayder Graham MD - [...] given written informed consent. Hayder Graham MD [phone] * Hayder Graham MD - 02/17/2024 7:00 [...] given written informed consent. Hayder Graham MD [phone] documented in this encounter Miscellaneous Notes * [...] information for follow-up Home Health & Hospice, [address] [place] [address] Cardiac Rehab, [address] [place] [address] Transportation: family or friend will provide Functional status prior to admission: Independent Home Environment: Others in the home: alone. Current Living Arrangements: home/apartment/condo. Accessibility Concerns:a few steps to enter 1 floor home. Current Functional Ability: Assistive Person and Equipment DME used at home: none DME Needed at Discharge: N/A Patient is insured through: Primary Insurance: [employer] Payor: [facility] / Plan: [facility] [...] pain managed with scheduled Tylenol. Worked with [employer]. Ambulated in the roque multiple times during [...] Patient is insured through: Primary Insurance: [facility] Payor: [facility] / Plan: [facility] [...] Services: Physical Therapy, Registered Nurse Agency Referrals: [facility] [address] [place] [address] Transportation: family or friend will provide Barriers to discharge: Discharge planning Plan going forward: Service Care Management will continue to follow and assist with discharge planning and coordination of care as indicated. Anticipated Date of Discharge: 02/22/2024 Rhett Bell RN RN/CM - Cellphone: [phone] Pager: [phone] Covering Service RN/CM * Plan of Care [...] Yang RN - 02/19/2024 10:44 AM EDT [facility] Karlos Garcia was seen today [...] 180 days) Any patient receiving care in [place] must abide by [place] law. The hierarchy [...] steady place to sleep or slept in [facility] (including now)?: No In the past 12 months has the [place], gas, oil, or water [employer] threatened to shut off services in your [...] [address] [facility] [address] Physical address: [address] [facility], [address] Social & Family Supports: All names listed [...] Payor: [facility] / Plan: [facility] PPO / Product Type: *No Product type* / Secondary Insurance: N/A ; Prescription Coverage: Yes Preferred Pharmacy: [id number] [address] [place] Status: Patient is a : No Primary Care Provider confirmed: Aparna Jordan, MAURI [phone] Patient/Caregiver Goals of Treatment: dc to home Potential Needs for Transition of Care: home health care Agency Referrals: I have met with the patient to: discuss discharge planning needs. provide the [facility], Office of Care Management letter from the Outside Salesperson pertaining to rehab referrals. provide a letter describing our affiliations within the [facility] and educate about their right to choose where referrals are sent. provide a list of Home Health Agencies / Durable Medical Equipment vendors which serve their preferred geographic area. provided patient with [facility] Star Quality Rating handout. They have requested referrals to: [facility] [address] [place] [address] Note routed to a Metal Fabrication Supervisor who will communicate referrals to facilities [...] daughter, Cielo, will be coming in from [place] on 02/18, to stay with him , [...] Reina Greene RN CM, BSN, CMGT-BC Ext [phone] * Plan of Care - Binta Trinidad [...] Operative Note Patient Name: Karlos Garcia : [id number] MR#: [id number] Case Date: 02/17/2024 Surgeon: Surgeon(s) and Role: * Hayder Graham MD - Primary * Neftali Menon PA - Physician Digital Press Operator Preoperative diagnosis: CAD Postoperative diagnosis: CAD, [...] Mediastinal and Left pleural Disposition: [facility] Condition: doing well without problems Attestation: Case Date: 02/17/2024 I performed this procedure without the involvement of a resident. HAYDER GRAHAM MD 02/17/2024 * Op Note - Hayder Graham MD - 02/17/2024 8:20 AM EDT [facility] Operative Note Patient Name: Karlos Garcia : [id number] MR#: [id number] Case Date: 02/17/2024 Surgeon: Surgeons and Role: * Hayder Graham MD - Primary * Neftali Menon PA - Physician Digital Press Operator Preoperative diagnosis: CAD Postoperative diagnosis: CAD, [...] Mediastinal and Left pleural Disposition: [facility] Procedure Description: The patient was [...] Aortic Valve Open W Cardiopulmonary Bypass Homogrf/Stent (98217) Yes 02/17/2024 7:28 AM EDT CAD Cabg, Artery-Vein, Two (12663) Yes 02/17/2024 7:28 AM EDT CAD Cabg, Arterial, Single (00672) Yes 02/17/2024 7:28 AM EDT CAD Endoscopy W/Video-Asst Vein [place], Cabg (89234) Yes 02/17/2024 7:28 AM EDT CAD POCT [...] MD CHEMISTRY ORDERABLE S [facility] [place] [address] * (ABNORMAL) Basic Metabolic Panel (non-fasting) (02/23/2024 [...] Performing Organization Address [facility] Co de Phone Number [facility] [place] [address] * Potassium (02/22/2024 4:30 AM EDT) Potassium [...] Performing Organization Address [facility] Co de Phone Number [facility] [place] [address] * (ABNORMAL) Basic Metabolic Panel (non-fasting) (02/21/2024 [...] Carpio MD CHEMISTRY ORDERABLES [facility] [place] [address] * Lactate, whole blood, send to lab ([facility]) (02/21/2024 9:45 AM EDT) Lactate WB 2.0 0.5 - 2.2 mmol/L [facility] Blood 02/21/2024 9:45 AM EDT 02/21/2024 9:52 AM EDT Narrative Resulting Agency Comment Spec In Lab Hayder Graham MD CHEMISTRY ORDERABLE S Performing Organization Address City/[facility]/ZIP Co de Phone Number [facility] [place] [address] * (ABNORMAL) Hepatic Function Panel (02/21/2024 9:45 [...] Address City/[facility]/ZIP Co de Phone Number [facility] [place] [address] * Lipase (02/21/2024 9:45 AM EDT) Pathologist [facility] Lipase 56 0 - 60 unit/L [facility] Blood 02/21/2024 9:45 AM EDT 02/21/2024 9:52 AM EDT Narrative Resulting Agency Comment Spec In Lab Hayder Graham MD CHEMISTRY ORDERABLE S Performing Organization Address [facility] Co de Phone Number [facility] [place] [address] * Amylase (02/21/2024 9:45 AM EDT) Amylase 69 28 - 100 unit/L [facility] Blood 02/21/2024 9:45 AM EDT 02/21/2024 9:52 AM EDT Narrative Resulting Agency Comment Spec In Lab Hayder Graham MD CHEMISTRY ORDERABLE S Performing Organization Address [facility] de Phone Number [facility] [place] [address] * Potassium (02/21/2024 3:08 AM EDT) Pathologist [facility] Potassium 3.8 3.5 - 5.0 mmol/L [facility] [...] Performing Organization Address [facility] Co de Phone Number [facility] [place] [address] * XR Chest PA & Lateral (Generic) (02/20/2024 10:19 AM EDT) WORKSTATION ID [id number] RAD Anatomical Region Laterality Modality Chest N/A [...] signed by: Rogerio Cruz MD, [facility] ??([phone]), at 02/20/2024 1:11 PM Narrative 02/20/2024 1:11 PM EDT EXAMINATION: XR CHEST PA AND LATERAL (GENERIC) CLINICAL HISTORY: s/p AVR/CABGx3 TECHNIQUE: PA and lateral views of the chest COMPARISON: 02/17/2024 FINDINGS: Support devices: Interval removal of [place]aila catheter, endotracheal tube and mediastinal chest tubes The cardiac silhouette is stable status post median sternotomy, CABG and aortic valve replacement. There are small pleural effusions. No pneumothorax. Procedure Note Rogerio Cruz MD - 02/20/2024 EXAMINATION: XR CHEST PA AND LATERAL (GENERIC) CLINICAL HISTORY: s/p AVR/CABGx3 TECHNIQUE: PA and lateral views of the chest COMPARISON: 02/17/2024 FINDINGS: Support devices: Interval removal of [place] catheter, endotracheal tubeand mediastinal chest tubes The [...] career specialist that requested your imaging first. Electronically signed by: Rogerio Cruz MD, [facility]([phone]), at 02/20/2024 1:11 PM Hayder Graham MD IMG DX ORDERABLES * Scan, Peripheral Blood (02/20/2024 4:23 AM EDT) Plat estimate Decreased [facility] RBC Morphology Normal [facility] Blood 02/20/2024 4:23 AM EDT 02/20/2024 4:42 AM EDT Narrative Resulting Agency Comment Spec In Lab Minnie FRENCH HEMATOLOGY CECILIO ALEMAN [facility] [place] [address] * (ABNORMAL) Differential, Automated (02/20/2024 4:23 AM EDT) Pathologist [facility] Neutrophil % 81.7 % [facility] Neutrophil Absolute 10.37(H) 1.70 - 6.10 x10(3)/mc L [facility] Lymph % 7.4 % [facility] Lymphocytes Abs 0.9 0.9 - 3.2 x10(3)/mc L [facility] Monocyte % 9.7 % [facility] Monocyte Abs 1.2(H) 0.3 - 0.9 x10(3)/mc L [facility] Eos % 0.1 % [facility] Eosinophils Abs 0.0 0.0 - 0.4 x10(3)/mc L [facility] Basophil % 0.2 % [place] [...] FRENCH HEMATOLOGY CECILIO ALEMAN [facility] [place] [address] * (ABNORMAL) Hemogram (02/20/2024 4:23 AM EDT) White Blood Cell 12.7(H) 4.0 - 9.5 x10(3)/[facility] LAB[facility]AT[facility] Red Blood Cell 4.26(L) 4.58 - 5.54 x10(6)/[facility]AT[facility] Hemoglobin 12.3(L) 13.7 - 16.5 g/dL [facility] Hematocrit 37.1(L) 40.5 - 48.5 % [facility] Mean Cell Volume 87.1 82.9 - 93.1 [facility] Mean Cell Hemoglobin 28.9 27.5 - 32.1 pg [facility] Mean Cell Hemoglobin Concentration 33.2 32.0 - 35.7 g/dL [facility] Platelet 88(L) 145 - 357 x10(3)/[facility] LABORATORY RDW Standard Deviation 43.5 36.0 - 45.0 [facility] RDW coefficient of variation 13.7 11.4 - 13.8 % [facility] Mean Platelet Volume 10.2 7.6 - 12.9 [facility] NRBC% auto 0.0 % [facility] NRBC Absolute 0.000 0.000 - 0.000 x10(3)/ L [facility] Blood 02/20/2024 4:23 AM EDT 02/20/2024 4:42 AM EDT Narrative Resulting Agency Comment Spec In Lab Minnie FRENCH HEMATOLOGY CECILIO ALEMAN [facility] [place] [address] * (ABNORMAL) Basic Metabolic Panel (non-fasting) (02/20/2024 [...] Address City/[facility]/ZIP Co de Phone Number [facility] [place] [address] * Potassium (02/19/2024 3:57 AM EDT) Potassium [...] Performing Organization Address [facility] Co de Phone Number [facility] [place] [address] * POCT Glucose (02/18/2024 8:24 AM EDT) Glucose, POC 157 65 - 199 mg/dL [facility] Comment: Supplemental ranges: <140 mg/dL before meals <180 mg/dL all other times of the day Blood 02/18/2024 8:24 AM EDT 02/18/2024 8:24 AM EDT Hayder Graham MD POINT OF CARE TEST ORDERABLES Performing Organization Address [facility]/ZIP Co de Phone Number [facility] [place] [address] * Scan, Peripheral Blood (02/18/2024 1:40 AM EDT) Plat estimate Decreased [facility] RBC Morphology Normal [facility] Blood 02/18/2024 1:40 AM EDT 02/18/2024 1:56 AM EDT Narrative Resulting Agency Comment Spec In Lab Neftali FRENCH HEMATOLOGY ORDER OLE [facility] [place] [address] * (ABNORMAL) Differential, Automated (02/18/2024 1:40 AM EDT) Neutrophil % 87.1 % [facility] Neutrophil Absolute 15.03(H) 1.70 - 6.10 x10(3)/mc L [facility] Lymph % 3.0 % [facility] Lymphocytes Abs 0.5(L) 0.9 - 3.2 x10(3)/mc L [facility] Monocyte % 9.1 % [facility] Monocyte Abs 1.6(H) 0.3 - 0.9 x10(3)/mc L [facility] Eos % 0.0 % [facility] Eosinophils Abs 0.0 0.0 - 0.4 x10(3)/mc L [facility] Basophil % 0.2 % [place] [...] FRENCH HEMATOLOGY ORDER OLE [facility] [place] [address] * (ABNORMAL) Hemogram (02/18/2024 1:40 AM EDT) [...] Standard Deviation 39.9 36.0 - 45.0 fL [facility] RDW coefficient of variation 13.2 11.4 - 13.8 % [facility] Mean Platelet Volume 9.9 7.6 - 12.9 fL [facility] NRBC% auto 0.0 % [facility] NRBC Absolute 0.000 0.000 - 0.000 x10(3)/mc L [facility] Blood 02/18/2024 1:40 AM EDT 02/18/2024 1:56 AM EDT Narrative Resulting Agency Comment Spec In Lab Neftali FRENCH HEMATOLOGY ORDER OLE [facility] [place] [address] * (ABNORMAL) Basic Metabolic Panel (non-fasting) (02/18/2024 [...] MD CHEMISTRY ORDERABLE S [facility] [place] [address] * (ABNORMAL) Troponin (02/18/2024 1:40 AM EDT) [...] troponin value can be found in the [facility] Test Catalog Troponin - [facility] Test Catalog Reference: Fourth [place] Definition of Myocardial Infarction. Journal of the [place] College of Cardiology 2018;72:9110-8687 Blood 02/18/2024 1:40 AM EDT 02/18/2024 1:56 AM EDT Narrative Resulting Agency Comment Spec In Lab Hayder Graham MD CHEMISTRY ORDERABLE S [facility] [place] [address] * POCT Glucose (02/17/2024 8:13 PM EDT) Glucose, POC 142 65 - 199 mg/dL [facility] Comment: Supplemental ranges: <140 mg/dL before meals <180 mg/dL all other times of the day Blood 02/17/2024 8:13 PM EDT 02/17/2024 8:13 PM EDT Hayder Graham MD POINT OF CARE TEST ORDERABLES Performing Organization Address [facility] Co de Phone Number [facility] [place] [address] * POCT Glucose (02/17/2024 5:42 PM EDT) Glucose, POC 160 65 - 199 mg/dL [facility] Comment: Supplemental ranges: <140 mg/dL before meals <180 mg/dL all other times of the day Blood 02/17/2024 5:42 PM EDT 02/17/2024 5:42 PM EDT Hayder Graham MD POINT OF CARE TEST ORDERABLES Performing Organization Address [facility] Co de Phone Number [facility] [place] [address] * Hemoglobin (02/17/2024 5:42 PM EDT) [facility] Signature Hemoglobin 13.7 13.7 - 16.5 g/dL [facility] Blood 02/17/2024 5:42 PM EDT 02/17/2024 6:10 PM EDT Narrative Resulting Agency Comment Spec In Lab Hayder Graham MD HEMATOLOGY ORDERABL ES Performing Organization Address [facility] Co de Phone Number [facility] [place] [address] * Potassium (02/17/2024 5:42 PM EDT) [facility] Signature Potassium 4.3 3.5 - 5.0 mmol/L [facility] [...] MD CHEMISTRY ORDERABLE S [facility] [place] [address] * (ABNORMAL) BLOOD GAS 2 [...] [facility] PF Ratio Art 195 [facility] Blood 02/17/2024 4:18 PM EDT 02/17/2024 4:18 PM EDT Hayder Graham MD POINT OF CARE TEST ORDERABLES [facility] [place] [address] * XR Chest One View (02/17/2024 1:44 PM EDT) [employer] WORKSTATION ID [id number] RAD Anatomical Region Laterality Modality Chest N/A Digital Radiogra phy Impressions 02/17/2024 2:12 PM EDT 1. ??No definite pleural fluid collection or pneumothorax. 2. ??Right IJ [place] catheter tip terminates in a descending branch [...] signed by: Denzel Hankins MD, [facility] ??([phone]), at 02/17/2024 2:12 PM Narrative 02/17/2024 2:12 PM EDT EXAMINATION: XR CHEST ONE VIEW CLINICAL HISTORY: s/p avr/cabg eval effusions TECHNIQUE: 1 view of the chest COMPARISON: Chest x-ray 01/09/2024, chest CT 02/03/2024 FINDINGS: ET tube tip terminates 5.2 cm above the carlos. Right IJ [place] catheter tip terminates in a descending branch [...] 5.2 cm above the carlos. Right IJ [place]anzcatheter tip terminates in a descending branch of [...] fluid collection or pneumothorax. 2. Right IJ [place] catheter tip terminates in a descending branch [...] career specialist that requested your imaging first. Electronically signed by: Denzel Hankins MD, [facility]([phone]), at 02/17/2024 2:12 PM Hayder Graham MD [...] [facility] PF Ratio Art 320 [facility] Blood 02/17/2024 1:31 PM EDT 02/17/2024 1:31 PM EDT Hayder Graham MD POINT OF CARE TEST ORDERABLES [facility] [place] [address] * (ABNORMAL) Coox2 (02/17/2024 1:21 PM EDT) [...] OF CARE TEST ORDERABLES Performing Organization Address City/[facility]/ZIP Co de Phone Number [facility] [place] [address] * (ABNORMAL) BLOOD GAS 2 ARTERIAL (02/17/2024 [...] Performing Organization Address [facility] Co de Phone Number [facility] [place] [address] * (ABNORMAL) Fibrinogen (02/17/2024 12:10 PM EDT) [...] Performing Organization Address [facility] Co de Phone Number [facility] [place] [address] * (ABNORMAL) Thrombin time (02/17/2024 12:10 PM [...] Performing Organization Address [facility] Co de Phone Number [facility] [place] [address] * APTT (02/17/2024 12:10 PM EDT) Partial [...] Performing Organization Address [facility] Co de Phone Number [facility] [place] [address] * (ABNORMAL) Prothrombin Time (02/17/2024 12:10 PM EDT) Prothrombin Time 16.7(H) 9.4 - 12.5 sec [facility] Comment: OR Result called by ?? LOMARL OR Results read back by: ? alondra pagna at 2024-02-17 12:41:48 International Normalization Ratio 1.5 [...] MD HEMATOLOGY ORDERABLE S [facility] [place] [address] * (ABNORMAL) Hemogram (02/17/2024 12:10 PM EDT) [...] [facility] NRBC% auto 0.0 % [facility] NRBC Absolute 0.000 0.000 - 0.000 x10(3)/mc L [facility] Blood 02/17/2024 12:1 0 PM EDT 02/17/2024 12:19 PM EDT Narrative Resulting Agency Comment Spec In Lab Tara York MD HEMATOLOGY ORDERABLE S [facility] [place] [address] * (ABNORMAL) BLOOD GAS 2 ARTERIAL (02/17/2024 [...] [facility] Comment: Noted by instrument technician. Please note: Patients with WBC [...] OF CARE TEST ORDERABLES [facility] [address] [address] * (ABNORMAL) BLOOD GAS 2 ARTERIAL (02/17/2024 [...] [facility] Comment: Noted by instrument technician. Please note: Patients with WBC [...] Performing Organization Address [facility] de Phone Number [facility] [place] [address] * (ABNORMAL) Hemoglobin and Hematocrit, blood (02/17/2024 [...] Performing Organization Address [facility] de Phone Number [facility] [place] [address] * (ABNORMAL) Platelet count (02/17/2024 11:04 AM EDT) Platelet 106(L) 145 - 357 x10(3)/mc L [facility] Immature Plt % 1.6 0.0 - 7.4 % [facility] Comment: Limitation of the Immature Platelet Fraction (IPF)-May be less reliable when the platelet count is less than 13h887/uL due to statistical imprecision. The IPF value [...] in a decreased state of production. References: [employer] The Clinical Value of the Immature Platelet Fraction (IPF) in Cell Recovery Document Number [id number] 03/2011 [employer] The Role of the Immature Platelet Fraction (IPF) in the Differential Diagnosis of Thrombocytopenia, Document MKT-[id number] V002/15/14 Blood 02/17/2024 11:0 4 AM EDT 02/17/2024 11:12 AM EDT Narrative Resulting Agency Comment Spec In Lab Hayder Graham MD HEMATOLOGY ORDERABL ES Performing Organization Address City/[facility]/ZIP Co de Phone Number [facility] [place] [address] * (ABNORMAL) Fibrinogen (02/17/2024 11:04 AM EDT) [...] Address City/[facility]/ZIP Co de Phone Number [facility] [place] [address] * (ABNORMAL) BLOOD GAS 2 ARTERIAL (02/17/2024 [...] CARE TEST ORDERABLES [facility] [place] [address] * (ABNORMAL) BLOOD GAS 2 ARTERIAL (02/17/2024 [...] OF CARE TEST ORDERABLES Performing Organization Address City/State/[facility] Co de Phone Number [facility] [place] [address] * Surgical Pathology Report (02/17/2024 10:01 AM EDT) Final Diagnosis [id number] ? Location: [facility]; [facility]; The signing pathologist has (i) examined the relevant preparation(s) for the specimen(s) and (ii) rendered or confirmed the diagnosis(es). . ?Surgical Pathology DIAGNOSIS Aortic valve leaflets, excision: Valve leaflets with myxoid degeneration, nodular fibrosis and dystrophic calcifications. Electronically signed by: ?Lindsay FERNANDEZ, Livier Gonzalez Verified: ??02/24/2024 13:49 ??Pathologist Performed at: ??-[facility] Dept. of Pathology, [place] [address] Outside Salesperson: Job Brewer MD, FCAP, ??CLIA Certificate: [id number] SPECIMEN(S) SUBMITTED A - Aortic Valve Leaflets, [...] Sections Processing Blocks submitted for decalcification: A1. Antenna Design Engineer sections in 1 cassette labeled A1. ??ajw 02/24/2024 1:49 PM EDT [facility] AORTIC STRUCTURE / Unknown 02/17/2024 10:01 AM EDT 02/17/2024 10:01 AM EDT Hayder Graham MD PATHOLOGY/[place] [address] * Specimen to Pathology (02/17/2024 10:01 AM EDT) AP Specimen 02/17/2024 10:0 1 AM EDT 02/17/2024 10:01 AM EDT Narrative [facility] - 02/17/2024 10:01 AM EDT Specimen requisition ordered. ??Separate Pathology report to follow Hayder Graham MD PATHOLOGY/CYTOLOGY ORDERABLES [facility] [place] [address] * (ABNORMAL) BLOOD GAS 2 [...] OF CARE TEST ORDERABLES [facility] [place] [address] * (ABNORMAL) BLOOD GAS 2 VENOUS (02/17/2024 9:34 AM EDT) pH, Venous 7.22(Criti marquez) 7.32 - 7.42 [facility] Comment:Noted by instrument technician. PCO2, Venous 43 41 - 51 mmHg [facility] Comment:Noted by instrument technician. PO2, Venous 57(H) 25 - 40 mmHg [facility] Comment:Noted by instrument technician. Bicarbonate, Venous 17.1 mmol/L [facility] Comment:Noted by instrument technician. Base Excess, Venous -10.6 mmol/L [facility] Comment:Noted by instrument technician. Hgb Blood Gas 11.2(L) 13.7 - 16.5 g/dL [facility] Comment:Noted by instrument technician. Oxyhemoglobin, Venous 86.5 % [facility] Comment:Noted by instrument technician. Carboxyhemoglob in, Venous 0.3 % [facility] Comment: Noted by instrument technician. Nonsmokers: 0.5-1.5% COHB Smokers: Variable, but usually less than 10% Toxic: 20-30% COHB Lethal: Greater than 60% COHB Methemoglobin, Venous 0.0 <=1.5 % [facility] Comment:Noted by instrument technician. Na Whole Blood 156(H) 135 - 145 mmol/L [facility] Comment:Noted by instrument technician. K Whole Blood 5.5(H) 3.5 - 5.0 mmol/L [facility] Comment: Noted by instrument technician. Please note: Patients with WBC >100,000 may have falsely elevated Potassium levels. Contact the Clinical Chemistry Laboratory if there are any questions. ICa Whole Blood 1.03(L) 1.15 - 1.33 mmol/L [facility] Comment: Noted by instrument technician. Note: ??Total bilirubin higher than 20 mg/dL may lead to falsely low ionized calcium. CL Whole Blood 100 98 - 107 mmol/L [facility] Comment:Noted by instrument technician. Gluc Whole Bld 132 65 - 199 mg/dL [facility] Comment: Noted by instrument technician. Diabetes: >=200 mg/dL plus symptoms Lactate WB 1.0 0.5 - 2.2 mmol/L [facility] Comment:Noted by instrument technician. Blood Gas Source Venous [facility] Blood 02/17/2024 9:34 AM EDT 02/17/2024 9:34 AM EDT Hayder Graham MD POINT OF CARE TEST ORDERABLES [facility] [place] [address] * (ABNORMAL) BLOOD GAS 2 ARTERIAL (02/17/2024 [...] OF CARE TEST ORDERABLES Performing Organization Address City/[facility]/ZIP Co de Phone Number [facility] [place] [address] * POCT Glucose (02/17/2024 6:38 AM EDT) Glucose, POC 98 65 - 199 mg/dL [facility] Comment: Supplemental ranges: <140 mg/dL before meals <180 mg/dL all other times of the day Blood 02/17/2024 6:38 AM EDT 02/17/2024 6:38 AM EDT Hayder Graham MD POINT OF CARE TEST ORDERABLES Performing Organization Address [facility] Co de Phone Number [facility] [place] [address] * Transesophageal Echo/OR (02/17/2024 6:33 AM EDT) [...] [facility] [...] 6-14 large 15-16 diffuse Reading Physician Tara oYrk MD 02/17/2024, 4: 08 PM Ordering Physician: [...] Routine documented in this encounter Care Teams Auto Body Mechanic Relationship Specialty Start Date End Date Aparna Jordan APRN PCP - General Family Medicine 10/21/23 05/26/24 documented as of this encounter
--- OUTSIDE RECORDS SUMMARY | 2024-08-06 09:56 | XMS_ITS | Encounter Summary ---
Author Organization [facility] [place] [address] Care Team Providers Care Client Experience Manager Name Role Phone Vanessa Christian APRN [...] filedocumented in this encounter Care Teams Client Experience Manager Relationship Specialty Start Date End Date Vanessa Christian APRN PCP - General Family Medicine 10/21/23 05/26/24 documented as of this encounter
--- OUTSIDE RECORDS SUMMARY | 2024-08-06 09:56 | XMS_ITS | Encounter Summary ---
Author Organization [facility] [place] [address] Care Team Providers Care Supervisor Paper Machine Name Role Phone Vanessa Christian Lane DOTSON Primary Care Provider [phone] Reason for Referral * Diagnostic Test (Routine) - Closed Specialty Diagnoses / Procedures Referred By Contac t Referred To Contact Radiology Diagnoses Nonrheumatic aortic valve stenosis Procedures CT Chest wo Contrast (Generic) Louisa Cho PA [facility] [place] [address] [facility] [place] [address] Referral ID Status Reason Start Date Expiration Date V isits Requested Visits Authorized [id number] Closed Specialty Service Requested 01/10/2024 07/11/2025 1 1 Reason for Visit * Diagnostic Test (Routine) - Closed Specialty Diagnoses / Procedures Referred By Contac t Referred To Contact Radiology Diagnoses Nonrheumatic aortic valve stenosis Procedures CT Chest wo Contrast (Generic) Louisa Cho PA [facility] [place] [address] [facility] [place] [address] Referral ID Status Reason Start Date Expiration Date V isits Requested Visits Authorized [id number] Closed Specialty Service Requested 01/10/2024 07/11/2025 1 1 Encounter Details Date Type Department Care Team (Latest Contact Info) Description 02/03/2024 7:36 AM EDT - 02/03/2024 8:05 AM EDT Hospital Encounter CT Scan at [facility] [place] [address] [facility] [place] [address] Nonrheumatic aortic valve stenosis Discharge Disposition: Home Social History Tobacco Use Types Packs/Day Years Used Date Smoking Tobacco: Former Cigarettes Smokeless Tobacco: Never Comments:Quit 15 + years ago Alcohol Use Standard Drinks/Week Comments Yes 0 (1 standard drink = 0.6 oz pur e alcohol) rare [facility] Inpatient Questions Answer Date Recorded Does [...] wo Contrast (Generic) (02/03/2024 7:44 AM EDT) [employer] Signature WORKSTATION ID [id number] RAD Anatomical Region Laterality Modality Chest Computed [...] ? Electronically signed by: Rogerio Wright MD, [facility] ([phone]), at 02/03/2024 10:00 AM Narrative 02/03/2024 10:00 [...] first. Electronically signed by: Rogerio Wright MD, [facility]([phone]), at 02/03/2024 10:00 AM Zak Farmer MD IMG CT ORDERABLES documented in this encounter Visit Diagnoses Diagnosis Nonrheumatic aortic valve stenosis Aortic valve disorders documented in this encounter Care Teams Supervisor Paper Machine Relationship Specialty Start Date End Date Vanessa Christian APRN PCP - General Family Medicine 10/21/23 05/26/24 documented as of this encounter
--- OUTSIDE RECORDS SUMMARY | 2024-08-06 09:56 | XMS_ITS | Encounter Summary ---
Author Organization [facility] [place] [address] Care Team Providers Care Orthophotography Technician Name Role Phone Vanessa Christian MAURI Primary Care Provider [phone] Reason for Visit * Auth/Cert (Routine) Specialty [...] W RHC (WRVU 5.9) Rima Dickinson MD [facility] [place] [place] [address] [facility] Referral ID Status Reason Start Date Expiration Date Visits Re quested Visits Authorized [id number] 1 1 Encounter Details Date Type Department Care Team (Latest Contact Info) Description 02/03/2024 8:06 AM EDT - 02/03/2024 2:54 PM EDT Hospital En[place] [address] Rima Dickinson MD [facility] [place] [address] Screening for cardiovascular condition; Aortic valve stenosis, [...] lbs Follow-up Visits Follow up with your applied technologist in 2-4 weeks Access Site 'Black and Blue' and tenderness is expected during the first week Call if you noted a mass (lump) greater than the size of a ellis Call Office with any Questions and if you have any of the following Clarence Lane M.D Interventional Personal Computer Network Engineer Hair Blender #: [phone] * Attachments The following attachments cannot be sent through Care Everywhere. * CAD (Coronary Artery Disease): General Info (Yi) * Coronary Angiogram: Post-op (Yi) documented in this encounter Medications at Time [...] Lane MD - 02/03/2024 11:48 AM EDT [facility] Interventional Cardiology Adult Pre-Procedure H&P Update: Cardiac Catheterization Karlos Anthony [id number] 1960 Chief Complaint: Aortic stenosis HPI: Mr. [...] is inthe chart Clarence Lane MD Interventional Personal Computer Network Engineer 02/03/24 11:48 AM documented in this encounter Miscellaneous Notes * Brief Op Note - Clarence Lane MD - 02/03/2024 12:51 PM EDT Preliminary Cardiac Catheterization Procedure Note: Patient Name: Karlos Anthony : [id number] MR#: [id number] Case Date: 02/03/2024 Hair Blender: Surgeon(s) and Role: * Saira Lua MD [...] Narrative 02/12/2024 3:47 PM EDT ?[facility] ? Cardiac Catheterization/Intervention Report ? Patient Name: Patenaude, Karlos ? Procedure Date: 02/03/2024 ? A #: [id number] ? Primary Physician: Mogadam, Emad ? Case #: [id number] ? File Name: [id number] ? Catheterization Order Number: [id number] ? [facility] ? Final Report [place], [place] ? Patient Name: ? Karlos Anthony ? ID#: ?[id number] ? : ?1960 ? Procedure Date: ? [...] Saira Lua MD - 02/12/2024 [facility] Cardiac Catheterization/Intervention Report Patient Name: Karlos Anthony Procedure Date: 02/03/2024 A #: [id number] Primary Physician: Saira Lua Case #: [id number] File Name: [id number] Catheterization Order Number: [id number] [facility] FinalReport [place], [place] Patient Name: Karlos Anthony ID#:[id number] :1960 Procedure Date: February 03, 2024 Case [...] as ASA Class III. The [facility] clinical frailty scale is 3: Managing [...] angiography. Saira Lua M.D. Electronically Signed by: Saria Lua M.D. Report Finalized: 02/12/2024 15:43 Saira Lua MD CARDIAC CATH ORDERAB LES * EKG 12 Lead (02/03/2024 10:33 AM EDT) Ventricular rate 56 BPM MUSE SYSTEM Atrial Rate 56 BPM MUSE SYSTEM P-R Interval 196 ms MUSE SYSTEM QRS Duration 86 ms MUSE SYSTEM Q-T Interval 386 ms MUSE SYSTEM QTC Calculated (Bezet) 372 ms MUSE SYSTEM Calculated P [place] 59 degrees MUSE SYSTEM Calculated R [place] 34 degrees MUSE SYSTEM Calculated T [place] 63 degrees MUSE SYSTEM INTERPRETATION Sinus bradycardia [...] MD) documented in this encounter Care Teams Orthophotography Technician Relationship Specialty Start Date End Date Vanessa Christian APRN PCP - General Family Medicine 10/21/23 05/26/24 documented as of this encounter
--- OUTSIDE RECORDS SUMMARY | 2024-08-06 09:57 | XMS_ITS | Encounter Summary ---
Author Organization [facility] [place] [address] Care Team Providers Care Bulk Pigment Reducer Name Role Phone Vanessa Christian APRN Primary Care Provider [phone] Encounter Details Date Type Department Care Team (Late st Contact Info) Description 12/26/2023 Notes Only Cardiology at [address] [place] [address] Neftali Ernandez MD [facility] [place] [address] Social History Tobacco Use Types Packs/Day Years [...] 1:37 PM EDT Echocardiogram images reviewed from [facility]. Indeed, the aortic valve appears severely stenotic. Cannotrule out bicuspid valve documented in this encounter Plan of Treatment Not on file documented as of this encounter Visit Diagnoses Not on filedocumented in this encounter Care Teams Bulk Pigment Reducer Relationship Specialty Start Date End Date Vanessa Christian APRN PCP - General Family Medicine 10/21/23 05/26/24 documented as of this encounter
--- OUTSIDE RECORDS SUMMARY | 2024-08-06 09:57 | XMS_ITS | Encounter Summary ---
Author [facility] [place] [address] Care Team Providers Care Hand Shaker Name Role Phone Vanessa Christian APRN Primary Care Provider [phone] Encounter Details Date Type Department Care Team (Late st Contact Info) Description 10/21/2023 Abstract Cardiology at [address] [place] [phone] Adam Mayes RN Social History Tobacco Use [...] on filedocumented in this encounter Care Teams Hand Shaker Relationship Specialty Start Date End Date Vanessa Christian APRN PCP - General Family Medicine 10/21/23 05/26/24 documented as of this encounter
--- OUTSIDE RECORDS SUMMARY | 2024-08-06 09:57 | XMS_ITS | Encounter Summary ---
Author Organization [facility] [place] [address] Care Team Providers Care Security Orderly Name Role Phone Vanessa Christian Lane DOTSON Primary Care Provider [phone] Encounter Details Date Type Department Care Team (Latest Contact Info) Description 01/09/2024 3:00 PM EDT Laboratory [place] [id number] Nonrheumatic aortic valve stenosis Social History Tobacco Use Types Packs/Day Years Used Date Smoking Tobacco: Former Cigarettes Smokeless Tobacco: Never Comments:Quit 15 + years ago Alcohol Use Standard Drinks/Week Comments Yes 0 (1 standard drink = 0.6 oz pur e alcohol) rare [facility] Inpatient Questions Answer Date Recorded [...] stenosis TYPE AND SCREEN, SDP (FUTURE SURGERY, [facility] SAME DAY PROGRAM ONLY) Routine 01/09/2024 2:58 [...] Recheck Status (01/09/2024 2:58 PM EDT) Pathologist [facility] Recheck Order Order Placed [facility] ABORH Type Recheck Completed [facility] Blood 01/09/2024 2:58 PM EDT 01/09/2024 3:08 PM EDT Narrative Resulting Agency Comment Spec In Lab Zak Farmer MD BLOOD BANK LAB ORDE ASH [facility] [place] [address] * Differential, Automated (01/09/2024 2:58 PM EDT) Neutrophil % 70.5 % [facility] Neutrophil Absolute 4.34 1.70 - 6.10 x10(3)/[facility] Lymph % 18.9 % [facility] Lymphocytes Abs 1.2 0.9 - 3.2 x10(3)/[facility] Monocyte % 8.0 % [facility] Monocyte Abs 0.5 0.3 - 0.9 x10(3)/[facility] Eos % 1.6 % [facility] Eosinophils Abs 0.1 0.0 - 0.4 x10(3)/[facility] Basophil % 0.5 % [facility] Baso Absolute 0.0 0.0 - 0.1 x10(3)/[facility] Immature Gran % 0.50 % [facility] Comment: Immature granulocytes(IG's)percentage and absolute count will include metamyelocytes, myelocytes, and promyelocytes. Blood smears from CBCs yielding IG's will be scanned manually for concordance. If this scan disagrees with the automated IG or if promyelocytes are noted, a manual differential will be performed. Immature Gran Absolute 0.03 0.00 - 0.04 x10(3)/[facility] Blood 01/09/2024 2:58 PM EDT 01/09/2024 3:03 PM EDT Narrative Resulting Agency Comment Spec In Lab Zak Farmer MD HEMATOLOGY ORDERABL ES [facility] [place] [address] * Hemogram (01/09/2024 2:58 PM EDT) White Blood Cell 6.2 4.0 - 9.5 x10(3)/[facility] Red Blood Cell 5.53 4.58 - 5.54 x10(6)/[facility] Hemoglobin 16.1 13.7 - 16.5 g/dL [facility] Hematocrit 46.9 40.5 - 48.5 % [facility] Mean Cell Volume 84.8 82.9 - 93.1 fL [facility] Mean Cell Hemoglobin 29.1 27.5 - 32.1 pg [facility] Mean Cell Hemoglobin Concentration 34.3 32.0 - 35.7 g/dL [facility] Platelet 187 145 - 357 x10(3)/[facility] RDW Standard Deviation 39.2 36.0 - 45.0 [facility] RDW coefficient of variation 12.6 11.4 - 13.8 % [facility] Mean Platelet Volume 9.5 7.6 - 12.9 [facility] NRBC% auto 0.0 % [facility] NRBC Absolute 0.000 0.000 - 0.000 x10(3)/[facility] Blood 01/09/2024 2:58 PM EDT 01/09/2024 3:03 PM EDT Narrative Resulting Agency Comment Spec In Lab Zak Farmer MD HEMATOLOGY ORDERABL ES [facility] [place] [address] * Basic Metabolic Panel (non-fasting) (01/09/2024 2:58 [...] MD CHEMISTRY ORDERABLE S Performing Organization Address [facility] Co de Phone Number [facility] [place] [address] * Hepatic Function Panel (01/09/2024 2:58 PM [...] MD CHEMISTRY ORDERABLE S Performing Organization Address [facility] Co de Phone Number [facility] [place] [address] * Prothrombin Time (01/09/2024 2:58 PM EDT) [...] MD HEMATOLOGY ORDERABL ES Performing Organization Address City/[facility]/ZIP Co de Phone Number [facility] [place] [address] * Type and Screen Future Surgery, [facility] SAME DAY PROGRAM ONLY) (01/09/2024 2:58 PM EDT) ABORH Type O NEGATIVE [facility] Patient BB History Not Found [facility] Expires at [id number] on: 02-20-2024 [facility] Ab Screen Interp Negative [facility] Blood 01/09/2024 2:58 PM EDT 01/09/2024 2:58 PM EDT Narrative Resulting Agency Comment Spec In Lab Zak Farmer MD BLOOD BANK LAB ORDE RABLES [facility] [place] [address] documented in this encounter Visit Diagnoses Diagnosis Nonrheumatic aortic valve stenosis Aortic valve disorders documented in this encounter Care Teams Security Orderly Relationship Specialty Start Date End Date Vanessa Christian APRN PCP - General Family Medicine 1/15/24 8/20/24 documented as of this encounter
--- OUTSIDE RECORDS SUMMARY | 2024-08-06 09:57 | XMS_ITS | Data Portability ---
Author Organization [place] - [facility] Address [address] [place] [address] Care Team Providers Care Cash Room Clerk Name Role Phone APARNA JORDAN Primary Care Provider SOFIA MCALLISTER Dentist Assessment No assessment recorded. Plan of Treatment Reminders Order Date Submit Date Provider Last Modified By Organization Details Last Modified Time Details Appointments None recorded . Lab magnesiu m, serum or plasma 024 12/18/19 24 [email or web address] [facility] (Registration ), [address] [place] [address] [place], [address], 4 14:25:25 BMP, serum or plasma 024 12/18/19 24 [id number] [facility] (Registration ), [address] [place] [address] [place], [address], 4 14:25:24 Referral None recorded . Procedures None recorded . Surgeries None recorded . Imaging None recorded . Medication Orders None recorded . Patient TargetsNo targets recorded. Patient Instructions Encounter Date Encounter Id Patient Instructions Last Modified By Organization Details Last Modified Time 09/19/2023 [id number] SCHEDULE FOLLOW UP IN 3 MONTHS IF YOU DONT HEAR FROM THE CARDIOLOGY DEPT THIS WEEK CALL [facility] ABSTRACTER AND LET THEM KNOW IF YOUR BREATHING GETS WORSE- GO TO THE ER, DONT OVER DO THINGS PHYSICALLY EXPECT A CALL FROM SARA ZAFAR RE: UPDATING YOUR POWER OF FUNERAL LOCATION MANAGER (NEED 2 WITNESSED SIGNATURES) Not available 09/19/2023 09:25:07 12/18/2023 [id number] Karlos: expect a call from the STructural heart team at [facility] drink at least 6 glasses of water [...] 9.3 mg/dL 8.5-10 .1 normal Not Available [address] [place], [address] 12/18/2023 17:09:55 12/18/19 24 12/18/2023 LASIC METAB OLIC PANEL glucose 90 mg/dL 74-106 normal Not Available Baljit montemayor [address] [place], [address] 12/18/2023 17:09:55 12/18/19 24 12/18/2023 LASIC METAB OLIC PANEL BUN 14 mg/dL 7-18 normal Not Available Baljit montemayor [address] [place], [address] 12/18/2023 17:09:55 12/18/19 24 12/18/2023 LASIC METAB OLIC PANEL creatinine 1.0 mg/dL 0.70-1 .30 normal Not Available [address] [place], [address] 12/18/2023 17:09:55 12/18/19 24 12/18/2023 LASIC METAB [...] young er-ag ed adult s. Not Available [address] [place], [address] 12/18/2023 17:09:55 12/18/19 24 12/18/2023 LASIC METAB OLIC PANEL sodium 139 mmol/ L 136-14 5 normal Not Available [address] [place], [address] 12/18/2023 17:09:55 12/18/19 24 12/18/2023 LASIC METAB OLIC PANEL potassium 4.9 mmol/ L 3.5-5. 1 normal Not Available [address] [place], [address] 12/18/2023 17:09:55 12/18/19 24 12/18/2023 LASIC METAB OLIC PANEL chloride 104 mmol/ L 98-107 normal Not Available [address] [place], [address] 12/18/2023 17:09:55 12/18/19 24 12/18/2023 LASIC METAB OLIC PANEL CO2 30.9 mmol/ L 21.0-3 2.0 normal Not Available [address] [place], [address] 12/18/2023 17:09:55 12/18/19 24 12/18/2023 LASIC METAB OLIC PANEL anion gap 4.1 mmol/ L 3-11 normal Not Available [address] [place], [address] 12/18/2023 17:09:55 12/18/19 24 12/18/2023 MAGNE SIUM magnesium 1.8 mg/dL 1.8-2. 4 normal Not Available [address] [place], [address] 12/18/2023 17:09:56 07/27/20 24 07/27/2024 LIPID 2 cholesterol 131 mg/dL <200 Not Available [address] [place], [address] 07/27/2024 11:59:38 07/27/20 24 07/27/2024 LIPID 2 triglyceride 162 mg/dL <150 high Not Available [address] [place], [address] 07/27/2024 11:59:38 07/27/2007/27/2024 LIPID 2 HDL cholesterol 35 mg/dL 40-60 low Not Available Dominique blackburn [address] [place], [address] 07/27/2024 11:59:38 07/27/2007/27/2024 LIPID 2 calculated LDL [...] 18 years or older . Not Available [address] [place], [address] 07/27/2024 11:59:38 07/27/2007/27/2024 COMPR EHENS MADYSON METAB OLIC PANEL calcium 9.2 mg/dL 8.5-10 .1 normal Not Available [address] [place], [address] 07/27/2024 11:59:38 07/27/2007/27/2024 COMPR EHENS MADYSON METAB OLIC PANEL glucose 83 mg/dL 74-106 normal Not Available Baljit montemayor [address] [place], [address] 07/27/2024 11:59:38 07/27/2007/27/2024 COMPR EHENS MADYSON METAB OLIC PANEL BUN 20 mg/dL 7-18 high Not Available Baljit montemayor [address] [place], [address] 07/27/2024 11:59:38 07/27/2007/27/2024 COMPR EHENS MADYSON METAB OLIC PANEL creatinine 1.0 mg/dL 0.70-1 .30 normal Not Available [address] [place], [address] 07/27/2024 11:59:38 07/27/2007/27/2024 COMPR EHENS MADYSON METAB [...] young er-ag ed adult s. Not Available [address] [place], [address] 07/27/2024 11:59:38 07/27/2007/27/2024 COMPR EHENS MADYSON METAB OLIC PANEL total protein 6.8 g/dL 6.4-8. 2 normal Not Available [address] [place], [address] 07/27/2024 11:59:38 07/27/2007/27/2024 COMPR EHENS MADYSON METAB OLIC PANEL albumin 3.5 g/dL 3.4-5. 0 normal Not Available [address] [place], [address] 07/27/2024 11:59:38 07/27/2007/27/2024 COMPR EHENS MADYSON METAB OLIC PANEL bilirubin, total 0.77 mg/dL 0.2-1. 0 normal Not Available [address] [place], [address] 07/27/2024 11:59:38 07/27/2007/27/2024 COMPR EHENS MADYSON METAB OLIC PANEL alk phos 84 U/L 46-116 normal Not Available [address] [place], [address] 07/27/2024 11:59:38 07/27/2007/27/2024 COMPR EHENS MADYSON METAB OLIC PANEL sodium 141 mmol/ L 136-14 5 normal Not Available [address] [place], [address] 07/27/2024 11:59:38 07/27/2007/27/2024 COMPR EHENS MADYSON METAB OLIC PANEL potassium 4.8 mmol/ L 3.5-5. 1 normal Not Available [address] [place], [address] 07/27/2024 11:59:38 07/27/2007/27/2024 COMPR EHENS MADYSON METAB OLIC PANEL chloride 105 mmol/ L 98-107 normal Not Available [address] [place], [address] 07/27/2024 11:59:38 07/27/2007/27/2024 COMPR EHENS MADYSON METAB OLIC PANEL CO2 30.9 mmol/ L 21.0-3 2.0 normal Not Available [address] [place], [address] 07/27/2024 11:59:38 07/27/2007/27/2024 COMPR EHENS MADYSON METAB OLIC PANEL anion gap 5.1 mmol/ L 3-11 normal Not Available [address] [place], [address] 07/27/2024 11:59:38 07/27/2007/27/2024 COMPR EHENS MADYSON METAB OLIC PANEL AST 20 U/L 15-37 normal Not Available Baljit montemayor [address] [place], [address] 07/27/2024 11:59:38 07/27/2007/27/2024 COMPR EHENS MADYSON METAB OLIC PANEL ALT 32 U/L 16-63 normal Not Available Baljit montemayor [address] [place], [address] 07/27/2024 11:59:38 07/27/2007/27/2024 CREAT INE KINAS E creatine kinase 133 U/L 39-308 normal Not Available [facility] [address] , [place], [address] 07/27/2024 11:48:30 09/11/2012/05/2022 trans -thor acic echoc ardio gram (TTE) (PROC ) No observ ation record ed. [email or web address] [facility] Xray [address] , [place], [address], 09/13/2023 09:29:52 09/11/20 23 06/01/2022 XR, hip, unila teral No observ ation record ed. [email or web address] Not Available 2022 09:29:19 09/11/2012/06/2019 , echoc ardio gram No observ ation record ed. 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 [...] the addres s above. Thank- you. INTERFACE [facility] [address], [place], [address] 07/27/2024 18:10:30 Result Notes None recorded. Problems Name Problem SNOMED Code Status Onset Date Resolution Date Notes Provider Name and Address Organization Details Recorded Time Gastroes ophageal reflux disease without esophagi tis 236637476 Active 2022 Problem Code: K21.9; Problem Code Type: ICD-10; Not Available [facility] 4 05:35:57 Glaucoma 95580512 Active 2022 Problem Code: H40.9; Problem Code Type: ICD-10; Not Available [facility] 4 05:35:57 Hyperlip idemia 28960840 Active 2022 Problem Code: E78.5; Problem Code Type: ICD-10; Not Available [facility] 4 05:35:57 [facility] hyperten marisol 03804104 Active 2022 Problem Code: I10; Problem Code Type: ICD-10; Not Available [facility] 4 05:35:57 Pain of left hip joint 56490112847 9100 Active 2022 Problem Code: M25.552; Problem Code Type: ICD-10; Not Available [facility] 4 05:35:57 Idiopath ic osteoart hritis 711422028 Active 2022 Problem Code: M16.12; Problem Code Type: ICD-10; Not Available [facility] 4 05:35:57 Inguinal hernia 164911908 Active 2022 Problem Code: K40.90; Problem Code Type: ICD-10; Not Available [facility] 4 05:35:57 Heart murmur 33266104 Active 2022 Problem Code: R01.1; Problem Code Type: ICD-10; Not Available [facility] 4 05:35:57 Dyspnea 423177758 Active 2022 Problem Code: R06.09; Problem Code Type: ICD-10; Not Available [facility] 4 05:35:57 Chest pain 81653678 Active 2022 Problem Code: R07.89; Problem Code Type: ICD-10; Not Available [facility] 4 05:35:57 Melanocy tic nevus 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 2022 Problem Code: D22.9; Problem Code Type: ICD-10; Not Available [facility] 4 05:35:57 Aortic stenosis , non-rheu matic 960778301 Active 2022 Problem Code: I35.0; Problem Code Type: ICD-10; Not Available [facility] 4 05:35:58 Aortic stenosis , non-rheu matic 690730643 Completed 202208/14/2023 Problem Code: I35.0; Problem Code Type: ICD-10; Not Available [facility] 4 05:35:58 Indigest ion 911032773 Active 2023 GLORIA CAMP LPN null, [facility] 4 08:48:57 Coronary artery bypass grafts x 3 Active 2023 Kelly Duran RN null, [facility] 4 10:30:01 At increase d risk of atrial fibrilla tion 129169628 Active [address], [place], [address] , [facility] 4 13:52:01 Anemia 972079186 Active [address], [place], [address] , [facility] 4 13:54:39 Problem Notes None recorded. Procedures Surgical History Date Name Laterality Status Provider Name and Address Organization Details Recorded Time coronary artery bypass graft completed Hudson Reeder MA [facility] 03/04/2024 14:54:09 Imaging Results Imaging Date Name Status LastModified by Organization Details LastModified Time 12/05/2022 trans-thoracic echocardiogram (TTE) (PROC) completed [address] Xray [address] , [place], [address], 09/13/2023 09:29:52 06/01/2022 XR, hip, unilateral [place] [address] Information not available 09/13/2023 09:29:19 12/06/2019 US, echocardiogram completed [address]- Cardiology [address] [place] [address] [place], [address], 09/13/2023 09:28:49 07/27/2024 x-ray imaging report completed INTERFACE [address] [place], [address] 07/27/2024 18:10:30 Procedure Notes None recorded. Medical [...] es. Take 1 hr prior. Started by [facility]. Not Available Not Available Not Available doxycycli [...] BY MOUTH DAILY 02/24 completed stopped by [facility] Not Available Not Available Not Available brimonidi [...] hours by oral route as needed. active [facility] Not Available Not Available No t Available Aspirin Childrens 81 mg chewable tablet Take 1 tablet by mouth once a day active Not Available Not Available No t Available lisinopri l 5 mg tablet TAKE 1 TABLET BY MOUTH EVERY DAY 02/24 completed stopped by [facility] Not Available Not Available Not Available mupirocin [...] day by oral route. active started by [facility] Not Available Not Available Not Available dorzolami de 2 % (PF) eye drops 1 drop both eyes bid 12/17 completed Not Available Not Available Not Available Vitals Date Recorded Body weight Body mass index (BMI) Body height Heart rate Systolic blood pressure Diastolic blood pressure Provider Name and Address Organization Details Last Updated DateTime 3 67319.7 8 g 23.7 kg/m2 167.64 cm 64 /min 110 mm[Hg] 60 mm[Hg] GLORIA CAMP LPN [facility] 3 08:48:49 Date Recorded Body height Body mass index (BMI) Body weight Heart rate Systolic blood pressure Diastolic blood pressure Provider Name and Address Organization Details Last Updated DateTime 4 167.64 cm 24.6 kg/m2 61913.4 4 g 60 /min 112 mm[Hg] 80 mm[Hg] GLORIA CAMP LPN [facility] 4 08:38:13 Date Recorded Body height Body mass index (BMI) Body weight Heart rate Oxygen saturation Oxygen saturation in Arterial blood by Pulse oximetry Systolic blood pressure Diastolic blood pressure Provider Name and Address Organization Details Last Updated DateTime 4 167.64 cm 22.6 kg/m2 16542.6 5 g 63 /min 99 % 99 % 102 mm[Hg] 54 mm[Hg] Hudson Reeder MA [facility] 4 10:27:28 Social History Question Answer Notes LastModified by Organizat ion Details LastModified Time Tobacco Smoking Status Former Smoker Hudson Reeder MA null, [place] - [facility]. 03/06/2024 10:24:50 Do You Have An Advance Directive? Yes Registered 08/15/23 Updated 01/12/24 Information not available 01/15/2024 When Did You Quit Smoking? 11-15years sincelastc igarette [email or web address] Information not available 03/06/2024 Do You Have A Medical Power Of Hvac Field Service Technician? Yes Received 08/30/23, Scanned. Copies Sent To [facility] And Patient 09/02/23. Information not available 09/02/2023 What Was The Date Of Your Most Recent Tobacco Screening? 03/06/2024 Information not available 03/06/2024 What Is Your Current Pack Years? 30ormorepa ckyears [email or web address] Information not available 03/06/2024 How Much Tobacco Do You Smoke? 1 PPD [email or web address] Information not available 03/06/2024 How Many Years Have You Smoked Tobacco? 40 [email or web address] Information not available 03/06/2024 Do You Or Have You Ever Used Any Other Forms Of Tobacco Or Nicotine? No [email or web address] Information not available 03/06/2024 Sex: Male Functional [...] Recorded Time Tdap 08/26/2013 completed Not Available [facility] 05:30:17 Td(adult) unspecified formulation 11/21/2022 completed Not Available [facility] 10/18/2023 05:30:17 COVID-19, mRNA, LNP-S, PF, 100 mcg/0.5mL dose or 50 mcg/0.25mL dose 01/24/2021 completed Not Available [facility] 10/18/19 05:30:18 COVID-19, mRNA, LNP-S, PF, 100 mcg/0.5mL dose or 50 mcg/0.25mL dose 02/21/2021 completed Not Available [facility] 10/18/19 05:30:18 COVID-19, mRNA, LNP-S, PF, 100 mcg/0.5mL dose or 50 mcg/0.25mL dose 09/11/2021 completed Not Available [facility] 10/18/19 05:30:18 influenza, unspecified formulation 07/26/2021 completed Not Available [facility] 10/18/2023 05:30:18 influenza, unspecified formulation 07/26/2022 completed Not Available [facility] 10/18/2023 05:30:18 influenza, unspecified formulation 07/28/2020 completed Not Available [facility] 10/18/2023 05:30:18 influenza, unspecified formulation 08/05/2019 completed Not Available [facility] 10/18/2023 05:30:18 influenza, unspecified formulation 08/12/2018 completed Not Available [facility] 10/18/2023 05:30:18 Past Encounters Encounter ID Performer Location Encounter Start Date Encounter Closed Date Diagnosis/Indication Diagnosis SNOMED-CT Code Diagnosis ICD10 Code [id number] [address] [address] 09/19/2023 08:39:51 09/19/2023 09:17:42 Aortic valve stenosis 57425283 I35.0 Essential hypertension 92927205 I10 [id number] [address] [address] 12/18/2023 08:23:47 12/18/2023 09:29:09 Aortic stenosis, non-rheumatic 858421127 I35.0 Essential hypertension 08992105 I10 Nonulcer dyspepsia 40098 07 K30 Cramp in lower leg 41879 8009 R25.2 [id number] TATYANA LEDEZMA MD [address] [address] 03/06/2024 10:15:07 03/06/2024 11:14:28 Postoperative visit 892414620 Z48.89 Aortic rosa m nosis, non-rheumatic 442486080 I35.0 Stented co ronary artery 703886626 Z95.5 At [facility] risk of atrial fibrillation 524192117 Z91.89 Anemia 073788982 D64.9 Health Concerns Section Related Observation LastModified by Organization Detai ls LastModified Time None Recorded Concern Status LastModified by Organization Details LastModified Time None Recorded Advance Directives Directive Y: Registered 08/15/23Updated 01/12/24 Payers Encounter Date Sequence Insurance Name Policy Number Policy Alicia Covered Member ID Alicia Member ID Guarantor Name 12/18/2023 1 [facility] [id number] Karlos C Patenaude [id number] Karlos C Patenaude 03/06/2024 1 [employer] [id number] Karlos C Patenaude [id number] Karlos C Patenaude Notes Date Note Type Note Provider Name and Address Organization Details Recorded Time 09/19/2023 text/html HPI Notes: 63-year-old man here for follow-up hypertension, severe aortic stenosis., He works full-time at [employer]. He lives at home with his dog. He has not heard from [facility] cardiology? referred mid-August. He did decrease his lisinopril to 5 mg, home SBPs running 110- 138, no change in slight lightheadedness with change position. He does continue to get dyspnea on exertion, denies chest pain, resolves fairly quickly no peripheral edema. 12/05/2022 [facility] transthoracic echocardiogram; there is moderate to severe aortic stenosis with disparate indicators. The calculated valve area is 0.8 cm2 is consistent with severe stenosis. Planimetry confirms valve area to 0.9 cm2. The mean gradient of 28 mmHg and peak velocity of 3.6M/S are consistent with moderate stenosis. There is trivial to mild aortic insufficiency. Aparna lizarraga [facility]. 09/19/2023 13:31:38 12/18/2023 text/html HPI Notes: 63-year-old man here for follow-up hypertension, severe aortic stenosis., He works full-time at [employer]. He lives at home with his dog. 12/05/2022 [facility] transthoracic echocardiogram; there is moderate to [...] repair a number of years ago at [facility], it is starting to cause some discomfort. Reports leg cramps at nighttime intermittently, improves when he has a Gatorade during the daytime and Ovaltine in his coffee. Aparna lizarraga, [facility], [facility]. 12/18/2023 11:43:00 03/06/2024 text/html HPI Notes: Ana Paula marlow is here today for a postop evaluation TATYANA LEDEZMA MD [address], [place], [address], [facility], [facility]. 03/08/2024 13:57:34
--- OUTSIDE RECORDS SUMMARY | 2024-08-06 09:57 | XMS_ITS | Encounter Summary ---
Author Organization [facility] [place] [address] Care Team Providers Care Manager Consumer Insights Name Role Phone Victor M Lafleur MD Primary Care Provider [phone] Encounter Details Date Type Department Care Team (Late st Contact Info) Description 09/26/2023 Abstract Cardiology at [address] [address] Karen Billy, RN Nonrheumatic aortic [...] documented in this encounter Care Teams Manager Consumer Insights Relationship Specialty Start Date End Date Victor M Lafleur MD PCP - General 10/02/13 10/20/23 documented as of this encounter
--- OUTSIDE RECORDS SUMMARY | 2024-08-06 09:57 | XMS_ITS | Encounter Summary ---
[place] [address] Care Team Providers Care Sash Maker Name Role Phone Victor M Lafleur MD Primary Care Provider [phone] Reason for Visit * Reason Onset Date Comments Referral 09/20/2023 Encounter Details Date Type Department Care Team (Late st Contact Info) Description 09/20/2023 Telephone Cardiology at [address] [address] Karen Billy, food mixer repairer Social History Tobacco Use Types Packs/Day Years [...] on filedocumented in this encounter Care Teams Sash Maker Relationship Specialty Start Date End Date Victor M Lafleur MD PCP - General 10/02/13 10/20/23 documented as of this encounter
--- OUTSIDE RECORDS SUMMARY | 2024-08-06 09:57 | XMS_ITS | Encounter Summary ---
[facility] [place] [address] Care Team Providers Care Candy Packer Name Role Phone Vanessa Christian Lane DOTSON Primary Care Provider [phone] Encounter Details Date Type Department Care Team (Late st Contact Info) Description 01/09/2024 2:30 PM EDT Clinical Support Same Day at [facility] [place] [id number] Social History Tobacco Use Types Packs/Day Years [...] you tube link for a video about [facility] cardiac surgery. Instructed to bring the booklet [...] type and screen performed while in the [facility]. Sent to Radiology for chest x-ray. Special medication instructions: None Procedure date: not booked. Darian documented in this encounter Plan of Treatment Not on file documented as of this encounter Visit Diagnoses Not on filedocumented in this encounter Care Teams Candy Packer Relationship Specialty Start Date End Date Vanessa Christian APRN PCP - General Family Medicine 10/21/23 05/26/24 documented as of this encounter
--- OUTSIDE RECORDS SUMMARY | 2024-08-06 09:57 | XMS_ITS | Encounter Summary ---
Author Organization [facility] [place] [address] Care Team Providers Care Cuff Setter Name Role Phone Vanessa Christian APRN Primary Care Provider [phone] Encounter Details Date Type Department Care Team [...] on filedocumented in this encounter Care Teams Cuff Setter Relationship Specialty Start Date End Date Vanessa Christian APRN PCP - General Family Medicine 10/21/23 05/26/24 documented as of this encounter
--- OUTSIDE RECORDS SUMMARY | 2024-08-06 09:57 | XMS_ITS | Encounter Summary ---
Author Organization [facility] Address [facility] [place] [address] Care Team Providers Care Overlocker Name Role Phone Vanessa Christian MAURI Primary Care Provider [phone] Encounter Details Date Type Department Care Team (Latest Contact Info) Description 01/09/2024 3:02 PM EDT - 01/09/2024 11:59 PM EDT Hospital Encounter XRay at [address] [place] [address] Zak Farmer MD [facility] [place] [address] Nonrheumatic aortic valve stenosis Discharge Disposition: Home Social History Tobacco Use Types Packs/Day Years Used Date Smoking Tobacco: Former Cigarettes Smokeless Tobacco: Never Comments:Quit 15 + years ago Alcohol Use Standard Drinks/Week Comments Yes 0 (1 standard drink = 0.6 oz pur e alcohol) rare [facility] Inpatient Questions Answer Date Recorded Prevent Contact [...] have questions please contact the health healthcare representative that requested your imaging first. ? Electronically signed by: Toby Dave MD, [facility] ([phone]), at 01/09/2024 3:11 PM Narrative 01/09/2024 3:11 [...] who have questions please contactthe health healthcare representative that requested your imaging first. Electronically signed by: Toby Dave MD, [facility]([phone]), at 01/09/2024 3:11 PM Zak Farmer MD IMG DX ORDERABLES documented in this encounter Visit Diagnoses Diagnosis Nonrheumatic aortic valve stenosis Aortic valve disorders documented in this encounter Care Teams Overlocker Relationship Specialty Start Date End Date Vanessa Christian APRN PCP - General Family Medicine 10/21/23 05/26/24 documented as of this encounter
--- OUTSIDE RECORDS SUMMARY | 2024-08-06 09:57 | XMS_ITS | Encounter Summary ---
Author Organization [facility] [place] [address] Care Team Providers Care Stoper Name Role Phone Vanessa Christian APRN Primary Care Provider [phone] Encounter Details Date Type Department Care Team (Late st Contact Info) Description 10/21/2023 Abstract Cardiology at [address] [place] [phone] Adam Mayes RN Social History Tobacco Use [...] on filedocumented in this encounter Care Teams Stoper Relationship Specialty Start Date End Date Vanessa Christian APRN PCP - General Family Medicine 10/21/23 05/26/24 documented as of this encounter
--- OUTSIDE RECORDS SUMMARY | 2024-08-06 09:57 | XMS_ITS | Encounter Summary ---
Author Organization [facility] [place] [address] Care Team Providers Care Insurance Verification Specialist Name Role Phone Vanessa Christian APRN Primary Care Provider [phone] Encounter Details Date Type Department Care Team [...] filedocumented in this encounter Care Teams Insurance Verification Specialist Relationship Specialty Start Date End Date Vanessa Christian APRN PCP - General Family Medicine 10/21/23 05/26/24 documented as of this encounter
--- OUTSIDE RECORDS SUMMARY | 2024-08-06 09:57 | XMS_ITS | Encounter Summary ---
Author Organization [facility] Address [facility] [address] [place] [id number] Care Team Providers Care Policy Analyst Name Role Phone Vanessa Christian MAURI Primary Care Provider [phone] Reason for Referral * Consultation (Routine) - Closed Specialty Diagnoses / Procedures Referred By Contac t Referred To Contact Cardiac Surgery Diagnoses Nonrheumatic aortic valve stenosis significant - TAVR ( defers to Card Surg d/t age) Errol Loya MD [facility] [place] [address] Zak Farmer MD [facility] CARDIOTHORACIC [place] [address] Referral ID Status Reason Start Date Expiration Date V isits Requested Visits Authorized [id number] Closed Consult, Test & Treat 10/21/2023 10/20/2024 1 1 Reason for Visit * Reason Comments Chest Pain Shortness of Breath Aortic Stenosis Encounter Details Date Type Department Care Team (Late st Contact Info) Description 10/21/2023 1:20 PM EST Office Visit Cardiology at [address] [address] Errol Loya MD [facility] [place] [address] Nonrheumatic aortic valve stenosis Social History Tobacco [...] Diagnosis Aortic stenosis 12/2022 TTE ([facility]): VITA 0.8-0.9 cm2 (MG 28 mmHg, DOI 3.6 m/s, SVI 35 cc/m2). Trace regurgitation. Normal bi-v s/f, no other valve findings Gastroesophageal reflux Nevus of face Right orthodox Hypertension HLD (hyperlipidemia) MEDICATIONS: Current Outpatient [...] will refer to T at [facility] for further evaluation. Logistics and preliminary review [...] will refer to T at [facility] for further evaluation. Logistics and preliminary review [...] disorders documented in this encounter Care Teams Policy Analyst Relationship Specialty Start Date End Date Vanessa Christian APRN PCP - General Family Medicine 10/21/23 05/26/24 documented as of this encounter
--- OUTSIDE RECORDS SUMMARY | 2024-08-06 09:57 | XMS_ITS | Encounter Summary ---
Author Organization [facility] Address [facility] [place] [address] Care Team Providers Care Poultry Picker Name Role Phone Vanessa Christian MAURI Primary Care Provider [phone] Reason for Visit * Consultation (Routine) - Closed Specialty Diagnoses / Procedures Referred By Contac t Referred To Contact Cardiac Surgery Diagnoses Nonrheumatic aortic valve stenosis significant - TAVR ( defers to Card Surg d/t age) Neftali Ernandez MD [facility] [place] [address] Zak Farmer MD [facility] [place] [address] Referral ID Status Reason Start Date Expiration Date V isits Requested Visits Authorized [id number] Closed Consult, Test & Treat 10/21/2023 10/20/2024 1 1 Encounter Details Date Type Department Care Team (Late st Contact Info) Description 01/09/2024 1:40 PM EDT Office [place] [address] Zak Farmer MD [facility] [place] [address] Nonrheumatic aortic valve stenosis Social [...] office. Best personal regards, Zak Farmer MD [phone] In aggregate 55 minutes were spent evaluating [...] questions please contact the health day care aide that requested your imaging first. ? Electronically signed by: Toby Dave MD, [facility] ([phone]), at 01/09/2024 3:11 PM Narrative 01/09/2024 3:11 [...] have questions please contactthe health day care aide that requested your imaging first. Electronically signed by: Toby Dave MD, [facility]([phone]), at 01/09/2024 3:11 PM Zak Farmer MD [...] CHEMISTRY ORDERABLE S [facility] [place] [address] * Hepatic Function Panel (01/09/2024 2:58 PM [...] MD CHEMISTRY ORDERABLE S Performing Organization Address [facility] Co de Phone Number [facility] [place] [address] * Prothrombin Time (01/09/2024 2:58 PM EDT) [...] MD HEMATOLOGY ORDERABL ES Performing Organization Address [facility] Co de Phone Number [facility] [place] [address] * Type and Screen Future Surgery, [facility] ONLY) (01/09/2024 2:58 PM EDT) ABORH Type O NEGATIVE [facility] Patient BB History Not Found [facility] Expires at [id number] on: 02-20-2024 [facility] Ab Screen Interp Negative [facility] Blood 01/09/2024 2:58 PM EDT 01/09/2024 2:58 PM EDT Narrative Resulting Agency Comment Spec In Lab Zak Farmer MD [facility] Performing Organization Address City/State/[facility] Co de Phone Number [facility] [place] [address] documented in this encounter Visit Diagnoses Diagnosis Nonrheumatic aortic valve stenosis Aortic valve disorders Nonrheumatic aortic valve stenosis Aortic valve disorders documented in this encounter Care Teams Poultry Picker Relationship Specialty Start Date End Date Vanessa Christian, TELETYPESETTER MONITOR PCP - General Family Medicine 10/21/23 05/26/24 documented as of this encounter
[2024-08-06 11:01] VITALS: BP 123/61; PULSE 50
== END 2024-08-06 23:59 | disposition home or self-care (01) ==
LOC: CR 09:54
PROVIDERS: PCP Nurse Practitioner Family; Visit Provider Internal Medicine Cardiovascular Disease
DX: R69 Illness, unspecified (principal)

== ENCOUNTER 2024-08-27 10:03 | Outpatient (RCR) | payer SELFPAY ==
[2024-08-07 00:15] VITALS: BP 123/61; PULSE 50
--- OUTSIDE RECORDS SUMMARY | 2024-08-11 10:03 | XMS_ITS | Encounter Summary ---
Author Organization [facility] Address [facility] [place] [address] Care Team Providers Care Brake Drum Molder Name Role Phone Vanessa Christian MAURI Primary Care Provider [phone] Encounter Details Date Type Department Care Team [...] on filedocumented in this encounter Care Teams Brake Drum Molder Relationship Specialty Start Date End Date Vanessa Christian APRN PCP - General Family Medicine 10/21/23 05/26/24 documented as of this encounter
--- OUTSIDE RECORDS SUMMARY | 2024-08-11 10:03 | XMS_ITS | Encounter Summary ---
Author Organization [facility] Address [facility] [place] [address] Care Team Providers Care Logistics Program Manager Name Role Phone Vanessa Christian MAURI Primary Care Provider [phone] Encounter Details Date Type Department Care Team [...] on filedocumented in this encounter Care Teams Logistics Program Manager Relationship Specialty Start Date End Date Vanessa Christian APRN PCP - General Family Medicine 10/21/23 05/26/24 documented as of this encounter
--- OUTSIDE RECORDS SUMMARY | 2024-08-11 10:03 | XMS_ITS | Encounter Summary ---
Author Organization [facility] Address [facility] [place] [address] Care Team Providers Care Section Crews Activities Clerk Name Role Phone Vanessa Christian MAURI [...] on filedocumented in this encounter Care Teams Section Crews Activities Clerk Relationship Specialty Start Date End Date Vanessa Christian APRN [address] [place] [address] PCP - General Family Medicine 05/27/24 documented as of this encounter
--- OUTSIDE RECORDS SUMMARY | 2024-08-11 10:03 | XMS_ITS | Encounter Summary ---
Author Organization [facility] Address [address] [place] [address] Care Team Providers Care Employment Evaluator/Case Manager Name Role Phone Vanessa Christian Lane MONCADA Primary Care Provider [phone] Encounter Details Date Type Department Care Team (Late st Contact Info) Description 10/24/2023 Lab Requisition [facility] - [address] [address] Oscar Nichole MD [address] [place] [id number] Factitial dermatitis Social History Tobacco Use Types [...] management options, if applicable. 10/28/2023 11:24 EST [facility] Final Diagnosis A. SKIN OF ROMAN CATHOLIC, LEFT, SHAVE BIOPSY: - Seborrheic keratosis, pigmented. 10/28/2023 11:24 EST [facility] Attestation By the signature below, the attending physician certifies that they have 1) personally conducted a gross and/or microscopic examination of the described specimen(s), and/or personally interpreted the results of laboratory testing of the described specimen(s), and 2) personally rendered or confirmed the above diagnosis. 10/28/2023 11:24 [facility] at [address] Microscopic Description The stratum corneum is thickened by compact and basketweave orthokeratosis with formation of horn pseudocysts. The epidermis is acanthotic with formation of broad and anastomosing trabeculae. The trabeculae are composed of basaloid keratinocytes with round uniform nuclei. The keratinocytes have a variable amount of melanin pigment. 10/28/2023 11:24 [facility] Clinical History Pigmented 2 cm patch; clinical diagnosis code: L98.1 10/28/2023 11:24 [facility] Gross Description A. Received [...] A3. Nora Anderson 10/25/2023 8:47 10/28/2023 11:24 [facility] Performing Lab [facility] 10/28/2023 11:24 [facility] Scanned Images 10/28/2023 11:24 [facility] Tissue SPECIMEN FROM SKIN / Unknown 10/24/2023 14:30 EST 10/24/2023 22:04 EST Oscar Nichole MD PATHOLOGY ORDERABLES [facility] [address] [place] [address] documented in this encounter Visit Diagnoses Diagnosis Factitial dermatitis Dermatitis factitia (artefacta) documented in this encounter Care Teams Employment Evaluator/Case Manager Relationship Specialty Start Date End Date Vanessa Christian NP [address] [place] [address] PCP - General Family Medicine - Primary Care 10/07/23 documented as of this encounter
--- OUTSIDE RECORDS SUMMARY | 2024-08-11 10:03 | XMS_ITS | Encounter Summary ---
Author Organization [facility] Address [facility] [place] [address] Care Team Providers Care Air Crew Member Name Role Phone Vanessa Christian MAURI Primary Care Provider [phone] Encounter Details Date Type Department Care Team (Late st Contact Info) Description 03/12/2024 2:40 PM EDT Office [place] [phone] Zak Farmer MD [facility] CARDIOTHORACIC [place] [address] Coronary artery disease, unspecified vessel or lesion [...] In the past 12 months has e [employer], gas, oil, or water [employer] threatened to shut off services in your [...] 2:40 PM EDT To: MD Vanessa Coles, ACTUARIAL CLERK Re; Karlos Santa ( 1960) We had [...] office. Best personal regards, Zak Farmer MD [phone] documented in this encounter Plan of Treatment [...] (Bezet) 401 ms MUSE SYSTEM Calculated P [place] -12 degrees MUSE SYSTEM Calculated R [place] 24 degrees MUSE SYSTEM Calculated T [place] 74 degrees MUSE SYSTEM INTERPRETATION Sinus bradycardia T wave abnormality, consider anterior ischemia Abnormal ECG When compared with ECG of 17-FEB-2024 13:24, [place] interval has decreased T wave inversion now evident in Anterior leads Confirmed by Paul Guzman ([id number]) on 03/15/2024 8:36:23 AM MUSE SYSTEM 03/12/2024 2:35 PM EDT 03/15/2024 8:36 AM EDT Zak Farmer MD ECG ORDERABLES [employer] documented in this encounter Visit Diagnoses Diagnosis Coronary artery disease, unspecified vessel or lesion type, unspecified whether angina present, unspecified whether cheesh-na or transplanted heart documented in this encounter Care Teams Air Crew Member Relationship Specialty Start Date End Date Vanessa Christian, MAURI PCP - General Family Medicine 10/21/23 05/26/24 documented as of this encounter
--- OUTSIDE RECORDS SUMMARY | 2024-08-11 10:03 | XMS_ITS | Encounter Summary ---
Author Organization [facility] Address [facility] [place] [address] Care Team Providers Care Machine Room Operator Name Role Phone Vanessa Christian Lane DOTSON Primary Care Provider Reason for Visit * Reason Comments Coronary Artery Disease Aortic Stenosis Encounter Details Date Type Department Care Team (Latest Contact Info) Description 05/27/2024 11:00 AM EDT Office Visit Cardiology at [address] [phone] eNftali Ernandez MD [facility] [place] [address] ASCVD (arteriosclerotic cardiovascular disease); Nonrheumatic aortic valve stenosis Social History Tobacco Use Types Packs/Day Years Used Date Smoking Tobacco: Former Cigarettes Smokeless Tobacco: Never Comments:Quit 15 + years ago Alcohol Use Standard Drinks/Week Comments Yes 0 (1 standard drink = 0.6 oz pur e alcohol) rare [facility] Utilities Answer Date Recorded In the past 12 months has e [employer], gas, oil, or water [employer] threatened to shut off services in [...] documented in this encounter Care Teams Machine Room Operator Relationship Specialty Start Date End Date Vanessa Christian, MAURI [address] [place] [address] PCP - General Family Medicine 05/27/24 documented as of this encounter
--- OUTSIDE RECORDS SUMMARY | 2024-08-11 10:03 | XMS_ITS | Encounter Summary ---
Author Organization [facility] Address [facility] [place] [address] Care Team Providers Care Utilization Engineer Name Role Phone Vanessa Christian MAURI Primary Care Provider [phone] Encounter Details Date Type Department Care Team (Latest Contact Info) Description 03/12/2024 1:30 PM EDT - 03/12/2024 11:59 PM EDT Hospital Encounter XRay at [address] [place] [address] Coronary artery disease, unspecified vessel or lesion type, unspecified whether angina present, unspecified whether [place] or transplanted heart Discharge Disposition: Home Social History Tobacco Use Types Packs/Day Years Used Date Smoking Tobacco: Former Cigarettes Smokeless Tobacco: Never Comments:Quit 15 + years ago Alcohol Use Standard Drinks/Week Comments Yes 0 (1 standard drink = 0.6 oz pur e alcohol) rare [facility] Utilities Answer Date Recorded In the past 12 months has e [employer], gas, oil, or water [employer] threatened to shut off services in your [...] unspecified whether angina present, unspecified whether [place] or transplanted heart documented in this encounter Results * XR Chest PA & Lateral (Generic) (03/12/2024 1:42 PM EDT) WORKSTATION ID [id number] RAD Anatomical Region Laterality Modality Chest N/A [...] questions please contact the health clinical care leader that requested your imaging first. ? Electronically signed by: Augie Sanchez MD, [facility] ([phone]), at 03/13/2024 8:28 AM Narrative 03/13/2024 8:28 AM EDT EXAMINATION: XR CHEST PA AND LATERAL (GENERIC) CLINICAL HISTORY: s/p cabg eval effusions I25.10, Atherosclerotic heart disease of [place] coronary artery without angina pectoris TECHNIQUE: PA [...] effusions I25.10, Atherosclerotic heart disease of [place] coronary artery withoutangina pectoris TECHNIQUE: PA and [...] have questions please contactthe health clinical care leader that requested your imaging first. Electronically signed by: Augie Sanchez MD, [facility]([phone]), at 03/13/2024 8:28 AM Zak Farmer MD IMG DX ORDERABLES documented in this encounter Visit Diagnoses Diagnosis Coronary artery disease, unspecified vessel or lesion type, unspecified whether angina present, unspecified whether [place] or transplanted heart documented in this encounter Care Teams Utilization Engineer Relationship Specialty Start Date End Date Vanessa Christian APRN PCP - General Family Medicine 10/21/23 05/26/24 documented as of this encounter
--- OUTSIDE RECORDS SUMMARY | 2024-08-11 10:03 | XMS_ITS | Encounter Summary ---
Author Organization [facility] Address [facility] [place] [address] Care Team Providers Care Knife Setter Assembler Name Role Phone Gino Vanessa Lane DOTSON Primary Care Provider [phone] Encounter Details Date Type Department Care Team (Late st Contact Info) Description 02/24/2024 Orders Only Cardiac Surgery [facility] [place] [phone] Trudi Lester APRN [facility] [place] [address] Social History Tobacco Use Types Packs/Day Years Used Date Smoking Tobacco: Former Cigarettes Smokeless Tobacco: Never Comments:Quit 15 + years ago Alcohol Use Standard Drinks/Week Comments Yes 0 (1 standard drink = 0.6 oz pur e alcohol) rare [facility] Utilities Answer Date Recorded In the past 12 months has e [employer], gas, oil, or water [employer] threatened to shut off services in your [...] on filedocumented in this encounter Care Teams Knife Setter Assembler Relationship Specialty Start Date End Date Vanessa Christian APRN PCP - General Family Medicine 10/21/23 05/26/24 documented as of this encounter
--- OUTSIDE RECORDS SUMMARY | 2024-08-11 10:03 | XMS_ITS | Clinical Summary ---
Author Organization [facility] Address [facility] [place] [address] Care Team Providers Care Telegraphic Instrument Supervisor Name Role Phone Vanessa Christian Lane [...] meantime will refer to SHT at [facility] for further evaluation. Logistics and preliminary review of TONY were reviewed with patient. - Refer to SHT Hypertension 08/14/2023 Resolved Problems Problem Noted Date Diagnosed Date Resolved Date Nevus of face 09/26/2023 05/27/2024 Overview (09/26/2023): Right latter-day Chest pressure 08/14/2023 10/21/2023 SILVA (dyspnea on exertion) 08/14/2023 HLD (hyperlipidemia) 08/14/2023 024 Encounters Date Type Department Care Team Description 05/27/2024 11:00 AM EDT Office Visit Cardiology at [address] [place] [address] Neftali Ernandez MD ASCVD (arteriosclerotic cardiovascular disease); Nonrheumatic aortic valve stenosis 05/27/2024 Travel 05/20/2024 Travel from Last 3 Months Social History Tobacco Use Types Packs/Day Years Used Date Smoking Tobacco: Former Cigarettes Smokeless Tobacco: Never Comments:Quit 15 + years ago Alcohol Use Standard Drinks/Week Comments Yes 0 (1 standard drink = 0.6 oz pur e alcohol) rare [facility] Utilities Answer Date Recorded In the [...] PCV) 2024 Medical Devices Implanted Type Area Scudding Inspector Device Identifier Shelf Expiration Date Model / Serial / Lot Cable,Cut,Edg ,Blnt,Ss,3tpr ([id number]) - [id number] Implanted:Qty : 1 on 02/17/2024 by Zak Farmer MD at [facility] IMPLANTS Midline: Chest [employer] - [id number] 09/02/2028 [id number] / / [id number] Valve Coronary Aortic 23mm Tissue Trnscath Biopros Inspiris ([id number]) (Autoreq) - [id number] Implanted:Qty : 1 on 02/17/2024 by Zak Farmer MD at [facility] IMPLANTS Heart [employer] - [employer] 09/15/2027 [id number] 23MM / [id number] / Procedures Procedure Name Priority Date/Time Associated [...] (Bezet) 367 ms MUSE SYSTEM Calculated P [place] 12 degrees MUSE SYSTEM Calculated R [place] 27 degrees MUSE SYSTEM Calculated T [place] 62 degrees MUSE SYSTEM INTERPRETATION Sinus bradycardia with 1st degree A-V block Otherwise normal ECG When compared with ECG of 12-MAR-2024 14:35, T wave inversion no longer evident in Anterior leads Confirmed by MD Ernandez Daniel ([id number]) on 06/01/2024 8:36:17 AM MUSE SYSTEM 05/27/2024 [...] Status decision made by: Patient Care Teams Telegraphic Instrument Supervisor Relationship Specialty Start Date End Date Vanessa Christian APRN [address] [place] [address] PCP - General Family Medicine 05/27/24
--- OUTSIDE RECORDS SUMMARY | 2024-08-11 10:03 | XMS_ITS | Referral Summary ---
Author Organization [facility] Address [address] [place] [address] Care Team Providers Care Brass Sorter Name Role Phone Filidayna Vanessa Sherman NP Primary Care Provider [phone] Social History Tobacco Use Types Packs/Day Years Used Date Smoking Tobacco: Never Assessed Sex and Gender Information Value Date Recorded Sex Assigned at Not on file Gender Identity Not on file Sexual Orientation Not on file Plan of Treatment Not on file Care Teams Brass Sorter Relationship Specialty Start Date End Date Vanessa Christian NP [address] [place] [address] PCP - General Family Medicine - Primary Care 10/07/23
--- OUTSIDE RECORDS SUMMARY | 2024-08-11 10:03 | XMS_ITS | Clinical Summary ---
Author Organization [facility] Address [address] [place] [address] Care Team Providers Care Svp Marketing Name Role Phone Vanessa Christian NP Primary Care Provider [phone] Social History Tobacco Use Types Packs/Day Years [...] COVID-19 Vaccine (2022- season) 2024 Care Teams Svp Marketing Relationship Specialty Start Date End Date Vanessa Christian NP [address] [place] [address] PCP - General Family Medicine - Primary Care 10/07/23
--- OUTSIDE RECORDS SUMMARY | 2024-08-11 10:04 | XMS_ITS | Encounter Summary ---
[place] [address] Care Team Providers Care Windows Systems Admin Name Role Phone Aparna Jordan MAURI Primary Care Provider [phone] Reason for Referral * Diagnostic Test (Routine) - New Request Specialty Diagnoses / Procedures Referred By Contac t Referred To Contact Cardiology Diagnoses S/P AVR Procedures Echocardiogram Transthoracic Neftali Menon PA [facility] [place] [address] [facility] [place] [address] Referral ID Status Reason Start Date Expiration Date Visits Requested Visits Authorized [id number] New Request Specialty Service Requested 02/24/2024 02/23/2025 1 1 * Consultation (Routine) - Authorized Specialty Diagnoses / Procedures Referred By Contac t Referred To Contact Cardiology Diagnoses S/P AVR Hayder Graham MD [facility] [place] [address] Cardiac Rehab, [facility] [address] [place] [address] [place] [address] Referral ID Status Reason Start Date Expiration Date Visits Requested Visits Authorized [id number] Authorized Consult, Test & Treat 02/24/2024 08/22/2024 36 36 * Home Health Care (Routine) - Authorized Specialty Diagnoses / Procedures Referred By Sixto mendoza Referred To Contact Diagnoses S/P AVR Hayder Graham MD [facility] [place] [address] Referral ID Status Reason Start Date Expiration Date Visits Requested Visits Authorized [id number] Authorized Consult, Test & Treat 02/24/2024 08/22/2024 [...] GRAFT (WRVU 7.93) Hayder Graham MD [facility] [place] [address] [facility] Referral ID Status Reason Start Date Expiration Date Visits Re quested Visits Authorized [id number] 1 1 Encounter Details Date Type Department Care Team (Latest Contact Info) Description 02/17/2024 5:43 AM EDT - 02/24/2024 11:23 AM EDT Hospital Encounter Heart and Vascular Unit Level 4 [place] [address] Hayder Graham MD [facility] [place] [address] S/P AVR (Primary Dx); Aortic valve stenosis, [...] Patient Age: 63 y.o. Birthdate: 1960 Language: Sao Tomean Race: White Ethnicity: Not nor Admit Date: 02/17/2024 Discharge Date: 02/24/24 Attending Physician: Hayder Graham MD Follow-up Recommendations for Providers: Please continue routine management of cardiovascular risk factors including blood pressure, lipids,glucose, etc. Please note any changes to medications. Patient to follow up with PCP, Aparna Jordan APRN, in 1-2 weeks. Patient to follow up with Child Development Specialist, Neftali Ernandez MD , in 2 weeks. Patient to follow up with Cardiac Surgeon, Dr. Hayder Graham, with a chest x-ray, EKG, and Echo. Inpatient Provider Contact Information: [facility] Section of Cardiac Surgery [facility] [address] FAX [phone] Discharge Diagnoses (Hospital Problems) Primary Diagnoses: /CAD [...] 33.75) performed by Hayder Graham MD at [facility] MAIN OR PRO CABG, ARTERY-VEIN, TWO N/A 02/17/2024 @CABG, TWO VENOUS GRAFTS & ARTERIAL GRAFT (WRVU 7.93) performed by Hayder Graham MD at [facility] MAIN OR PRO ENDOSCOPY W/VIDEO-ASST VEIN HARVEST, CABG Left 02/17/2024 ENDOSCOPIC HARVEST VEIN(S) FOR CABG (WRVU 0.31) performed by Hayder Graham MD at [facility] MAIN OR PRO REPLACEMENT PROSTHETIC AORTIC VALVE OPEN W CARDIOPULMONARY BYPASS HOMOGRF/STENT N/A 02/17/2024 @REPLACE AORTIC VALVE, OPEN, W\CPB, W\PROSTHETIC VALVE (WRVU 41.32) performed by Hayder Graham MD at [facility] MAIN OR Prior To Admission Medications [...] insufficiency. He has glaucoma. He used to [employer] until about 15 years ago. He has undergone prior herniorrhaphy. 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 Major Procedures/Operations: 02/17/24 s/p avr/cabgx3 CABG x 3 JOSE->LAD SVG->dRCA SVG->OM1 EVH from LLE AVR with a 23 mm Inspiris Bioprosthesis Hospital Course: Karlos Garcia was admitted to [facility] on 02/17/2024 via the Same Day [...] Hayder Graham and/or the Cardiac Surgery Physician Customer Service Advocate Team may be reached at . Antibiotic [...] Please refer to the card with the [employer] Heart [employer] Guidelines for more information. You [...] Dr. Hayder Graham. You may use a [place] Track or treadmill but avoid any pulling [...] friends, go to a movie, go to religious, etc. Heavy activities: No hunting, skiing, jogging, [...] should resume a low fat, low cholesterol, [employer] Heart Association Diet. Driving: No driving until [...] while being managed by your PCP and/or Child Development Specialist. For future medication refills, please refer to your PCP and/or Child Development Specialist after your discharge from our service. Thank you REMOVE CHEST TUBE SUTURES ON OR AFTER 03/02/24 Home oxygen therapy: N/A Follow up appointments: You should follow up with your PCP, Aparna Jordan APRN, in 1-2 weeks. Our office will schedule an appointment with your Child Development Specialist, Neftali Ernandez MD , in 2 weeks. You have an appointment with your Cardiac Surgeon, Dr. Hayder Graham, 4 weeks with a chest x-ray, EKG, and Echo before your appointment. Cardiac Rehabilitation: Karlos Garcia was seen regarding participation in the outpatient Phase 2Cardiac Rehabilitation at [facility]. The patient agrees to a referral to this program. The referral will be sent at discharge and the patient should be contacted by the Program within 1- 2 weeks from discharge. Future Appointments and Orders Future Orders Complete By Expires Echocardiogram Transthoracic [48698 CPT(R)] 03/26/2024 09/25/2024 Process Instructions: Scheduling Instructions: Questions: Where will study be performed[place] [facility] Does the patient have Congenital Heart Disease?: Does patient require sedation?: Sedation rationale: XR Chest PA & Lateral (Generic) [71005 61121 Custom] 03/26/2024 09/25/2024 Process Instructions: Scheduling Instructions: Questions: Portable exam?: Reason for exam and clinical history: s/p avr/cabg Clinical information / jerome questions for radiologist: Stat read required?: Date of injury if applicable: Requested Time: Where will study be performed?: [facility] Radiology Referral to Cardiac Rehab [MYZ905 Custom] As directed Process Instructions: If no progress note charted, please enter Clinical details in comments. Scheduling Instructions: Questions: My question or request is: s/p AVR/CABG. Cardiac rehab at [facility]. Referral to Home Health [REF34 Custom] As directed Process Instructions: If no progress note charted, please enter Clinical details in comments. Scheduling Instructions: Comments: Please evaluate Karlos Garcia for admission to Home Health. 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 [address] [place] [address] RN orders: Cardiopulmonary assessment, incisional assessment, assess [...] issues please call the Cardiology Office at [phone] FOR MEDICARE ONLY: (please delete this section [...] APRN [address] / [place] [address] . All VNA agencies which cover the area of patient's residence have been reviewed, either verbally or in writing, and patient/family have chosen the home health care agency noted. Questions: Disciplines Requested: Nursing Physical Therapy Arrangements for VNA/home care: As above. Signed: NEFTALI MENON PA-C [facility] Section of Cardiac Surgery [facility] [address] FAX [phone] Date: 02/24/2024 CC: Aparna Jordan, MAURI Jordan, Aparna Sherman APRN [address] [place] [address] documented in this encounter Discharge Instructions * [...] Hayder Graham and/or the Cardiac Surgery Physician Customer Service Advocate Team may be reached at . Antibiotic [...] Please refer to the card with the [employer] Heart Association Guidelines for more information. You [...] Dr. Hayder Graham. You may use a [place] Track or treadmill but avoid any pulling [...] friends, go to a movie, go to religious, etc. Heavy activities: No hunting, skiing, jogging, [...] should resume a low fat, low cholesterol, [employer] Heart Association Diet. Driving: No driving until [...] while being managed by your PCP and/or Child Development Specialist. For future medication refills, please refer to your PCP and/or Child Development Specialist after your discharge from our service. Thank you REMOVE CHEST TUBE SUTURES ON OR AFTER 03/02/24 Home oxygen therapy: N/A Follow up appointments: You should follow up with your PCP, Aparna Jordan APRN, in 1-2 weeks. Our office will schedule an appointment with your Child Development Specialist, Neftali Ernandez MD , in 2 weeks. You have an appointment with your Cardiac Surgeon, Dr. Hayder Graham, 4 weeks with a chest x-ray, EKG, and Echo before your appointment. Cardiac Rehabilitation: Karlos Garcia was seen regarding participation in the outpatient Phase 2Cardiac Rehabilitation at [facility]. The patient agrees to a referral [...] 0600 and on the weekends please page [phone]. * Eric Barahona PA - 02/23/2024 9:27 [...] 0600 and on the weekends please page [phone]. * Tiffanie Owens PTA - 02/22/2024 2:48 [...] Pt reports his dtr is coming from [place] to stay upon d/c for 10 days. Pt was indep [employer]. He drives. He works Precautions/Special Considerations: STERNAL [...] LRAD and supervision Time IN / OUT: 3315-6775 Total Time: 30 minutes; TEFx2 Tiffanie Owens Pager: [phone] Physical Therapy Inpatient Rehabilitation Department * Romeo [...] 0600 and on the weekends please page [phone]. * Kelley Hinson, [employer] - 02/21/2024 10:15 AM EDT Physical Therapy [...] Pt reports his dtr is coming from [place] to stay upon d/c for 10 days. Pt was indep [employer]. He drives. He works Precautions/Special Considerations: STERNAL [...] LRAD and supervision Time IN / OUT: 1176-9272 Total Time: 25 minutes; TEF 2 Kelley Hinson PTA Pager: [phone] Physical Therapy Inpatient Rehabilitation Department * Louisa [...] 0600 and on the weekends please page [phone]. * Kelley Hinson PTA - 02/20/2024 3:32 [...] at that time Kelley Hinson PTA Pager: [phone] Physical Therapy Inpatient Rehab Department * Louisa [...] on the weekends please page [phone]. * Maris Benavides, PT - 02/19/2024 11:22 [...] Pt reports his dtr is coming from [place] to stay upon d/c for 10 days. Pt was indep [employer]. He drives. He works. Precautions/Special Considerations: STERNAL [...] outlined inthis evaluation. MARIS BENAVIDES, PT Pager: [phone] Physical Therapy Inpatient Rehabilitation Department Time IN / OUT: [phone] Total Time: 38 (eval) minutes; * Antonio [...] 0600 and on the weekends please page [phone]. * Minnie Begum PA - 02/18/2024 8:25 AM EDT Cardiac Surgery Progress Note Karlos Gracia is a 63 y.o. male with and [...] site CDI with SANJANA wrap Tubes/Lines/Drains: RIJ/PAC, [place], Jacky Ctx, L pleural CT, TPW, Delaney [...] 0600 and on the weekends please page [phone]. * Kim Ha RCP - 02/17/2024 2:25 [...] plan since last visit. Hayder Graham MD [phone] Source Note - Hayder Graham MD - [...] insufficiency. He has glaucoma. He used to [employer] until about 15 years ago. He has [...] given written informed consent. Hayder Graham MD [phone] * Hayder Graham MD - 02/17/2024 7:00 [...] given written informed consent. Hayder Graham MD [phone] documented in this encounter Miscellaneous Notes * [...] for follow-up Home Health & Hospice, [address] [place] [address] Cardiac Rehab, [address] [place] [address] Transportation: family or friend will provide Functional status prior to admission: Independent Home Environment: Others in the home: alone. Current Living Arrangements: home/apartment/condo. Accessibility Concerns:a few steps to enter 1 floor home. Current Functional Ability: Assistive Person and Equipment DME used at home: none DME Needed at Discharge: N/A Patient is insured through: Primary Insurance: [employer] Payor: [facility] / Plan: [facility] PPO / Product Type: *No [...] pain managed with scheduled Tylenol. Worked with [employer]. Ambulated in the roque multiple times during [...] anticipated Patient is insured through: Primary Insurance: [employer] Payor: [facility] / Plan: [facility] PPO / Product Type: *No Product type* / Secondary Insurance: N/A Last Physical Therapy Recommendation: home with home health (Str coming to stay for a week or two upon d/c) with to be determined (owns rolling walker, shower seat) Plan for discharge is: Home w/ Services Outpatient Agency/Support Group Needs: Homecare agency Home Health Services: Physical Therapy, Registered Nurse Agency Referrals: [facility]. [address] [place] [address] Transportation: family or friend will provide Barriers to discharge: Discharge planning Plan going forward: Service Care Management will continue to follow and assist with discharge planning and coordination of care as indicated. Anticipated Date of Discharge: 02/22/2024 Rhett Bell RN RN/CM - Cellphone: [phone] Pager: [phone] Covering Service RN/CM * Plan of Care [...] the outpatient Phase 2 Cardiac Rehabilitation at [facility]. The patient agrees to a referral [...] surrogate would be surrogate decision maker per [place] surrogate decision making law. (Only good for 180 days) Any patient receiving care in [place] must abide by [place] law. The hierarchy for surrogate decision making [...] place to sleep or slept in [facility] (including now)?: No In the past 12 months has the [employer], gas, oil, or water [employer] threatened to shut off services in [...] [address] [facility] [address] Physical address: [address] [facility], [address] Social & Family Supports: All names listed [...] Information: none noted Health/Prescription Coverage: Primary Insurance: [facility] Payor: [facility] / Plan: [facility] PPO / Product Type: *No Product type* / Secondary Insurance: N/A ; Prescription Coverage: Yes Preferred Pharmacy: [id number] [address] [place] Status: Patient is a : No Primary Care Provider confirmed: Aparna Jordan, EXPORT SALES MANAGER [phone] Patient/Caregiver Goals of Treatment: dc to home Potential Needs for Transition of Care: home health care Agency Referrals: I have met with the patient to: discuss discharge planning needs. provide the [facility] Office of Care Management letter from the Office Support Assistant pertaining to rehab referrals. provide a letter describing our affiliations within the [facility] and educate about their right to choose where referrals are sent. provide a list of Home Health Agencies / Durable Medical Equipment vendors which serve their preferred geographic area. provided patient with [facility] Star Quality Rating handout. They have requested referrals to: [facility]. [address] [place] [address] Note routed to a Sand Control Worker who will communicate referrals to facilities [...] daughter, Cielo, will be coming in from [place] on 02/18, to stay with him , [...] Reina Greene RN CM, BSN, CMGT- Ext [phone] * Plan of Care - Binta Trinidad [...] Operative Note Patient Name: Karlos Garcia : [id number] MR#: [id number] Case Date: 02/17/2024 Surgeon: Surgeon(s) and Role: * Hayder Graham MD - Primary * Neftali Menon PA - Physician Customer Service Advocate Preoperative diagnosis: CAD Postoperative diagnosis: CAD, intraoperative [...] Operative Note Patient Name: Karlos Garcia : [id number] MR#: [id number] Case Date: 02/17/2024 Surgeon: Surgeons and Role: * Hayder Graham MD - Primary * Neftali Menon PA - Physician Customer Service Advocate Preoperative diagnosis: CAD Postoperative diagnosis: CAD, intraoperative [...] Aortic Valve Open W Cardiopulmonary Bypass Homogrf/Stent (16871) Yes 02/17/2024 7:28 AM EDT CAD Cabg, Artery-Vein, Two (87046) Yes 02/17/2024 7:28 AM EDT CAD Cabg, Arterial, Single (95149) Yes 02/17/2024 7:28 AM EDT CAD Endoscopy W/Video-Asst Vein [place], Cabg (96096) Yes 02/17/2024 7:28 AM EDT CAD POCT [...] CHEMISTRY ORDERABLE S [facility] [place] [address] * (ABNORMAL) Basic Metabolic Panel (non-fasting) (02/23/2024 [...] Carpio MD CHEMISTRY ORDERABLES Performing Organization Address City/[facility]/ZIP Co de Phone Number [facility] [place] [address] * Potassium (02/22/2024 4:30 AM EDT) [facility] Potassium 3.5 3.5 - 5.0 mmol/L [facility] [...] MD CHEMISTRY ORDERABLE S Performing Organization Address City/[facility]/ZIP Co de Phone Number [facility] [place] [address] * (ABNORMAL) Basic Metabolic Panel (non-fasting) (02/21/2024 [...] Carbon Dioxide Not Perf 22 - [facility] Comment:Add-on request. Samp [...] Carpio MD CHEMISTRY ORDERABLES Performing Organization Address City/[facility]/ZIP Co de Phone Number [facility] [place] [address] * Lactate, whole blood, send to lab ([facility]) (02/21/2024 9:45 AM EDT) [facility] Lactate WB 2.0 0.5 - 2.2 mmol/L [facility] Blood 02/21/2024 9:45 AM EDT 02/21/2024 9:52 AM EDT Narrative Resulting Agency Comment Spec In Lab Hayder Graham MD CHEMISTRY ORDERABLE S Performing Organization Address [facility] Co de Phone Number [facility] [place] [address] * (ABNORMAL) Hepatic Function Panel (02/21/2024 9:45 AM EDT) [facility] Protein, Total 5.7(L) 6.1 - 8.0 [...] MD CHEMISTRY ORDERABLE S Performing Organization Address City/[facility]/ZIP Co de Phone Number [facility] [place] [address] * Lipase (02/21/2024 9:45 AM EDT) [facility] Lipase 56 0 - 60 unit/L [facility] Blood 02/21/2024 9:45 AM EDT 02/21/2024 9:52 AM EDT Narrative Resulting Agency Comment Spec In Lab Hayder Graham MD CHEMISTRY ORDERABLE S Performing Organization Address [facility] Co de Phone Number [facility] [place] [address] * Amylase (02/21/2024 9:45 AM EDT) Amylase 69 28 - 100 unit/L [facility] Blood 02/21/2024 9:45 AM EDT 02/21/2024 9:52 AM EDT Narrative Resulting Agency Comment Spec In Lab Hayder Graham MD CHEMISTRY ORDERABLE S Performing Organization Address [facility] Phone Number [facility] [place] [address] * Potassium (02/21/2024 3:08 AM EDT) Potassium [...] CHEMISTRY ORDERABLE S Performing Organization Address [facility] Co de Phone Number [facility] [place] [address] * XR Chest PA & Lateral (Generic) (02/20/2024 10:19 AM EDT) WORKSTATION ID [id number] DH RAD Anatomical Region Laterality Modality Chest [...] please contact the health long term care phlebotomist that requested your imaging first. ? Electronically signed by: Rogerio Cruz MD, [facility] ??([phone]), at 02/20/2024 1:11 PM Narrative 02/20/2024 1:11 PM EDT EXAMINATION: XR CHEST PA AND LATERAL (GENERIC) CLINICAL HISTORY: s/p AVR/CABGx3 TECHNIQUE: PA and lateral views of the chest COMPARISON: 02/17/2024 FINDINGS: Support devices: Interval removal of [place] catheter, endotracheal tube and mediastinal chest tubes The cardiac silhouette is stable status post median sternotomy, CABG and aortic valve replacement. There are small pleural effusions. No pneumothorax. Procedure Note Rogerio Cruz MD - 02/20/2024 EXAMINATION: XR CHEST PA AND LATERAL (GENERIC) CLINICAL HISTORY: s/p AVR/CABGx3 TECHNIQUE: PA and lateral views of the chest COMPARISON: 02/17/2024 FINDINGS: Support devices: Interval removal of [place] catheter, endotracheal tubeand mediastinal chest tubes The [...] questions please contactthe health long term care phlebotomist that requested your imaging first. Hayder Graham MD IMG DX ORDERABLES * Scan, Peripheral Blood (02/20/2024 4:23 AM EDT) Pathologist [facility] Plat estimate Decreased [facility] RBC Morphology Normal [facility] Blood 02/20/2024 4:23 AM EDT 02/20/2024 4:42 AM EDT Narrative Resulting Agency Comment Spec In Lab Minnie FRENCH HEMATOLOGY CECILIO ALEMAN [facility] [place] [address] * (ABNORMAL) Differential, Automated (02/20/2024 4:23 AM EDT) [facility] Neutrophil % 81.7 % [facility] Neutrophil Absolute 10.37(H) 1.70 - 6.10 x10(3)/mc L [facility] Lymph % 7.4 % [facility] Lymphocytes Abs 0.9 0.9 - 3.2 x10(3)/mc L [facility] Monocyte % 9.7 % [facility] Monocyte Abs 1.2(H) 0.3 - 0.9 x10(3)/mc L [facility] Eos % 0.1 % [facility] Eosinophils Abs 0.0 0.0 - 0.4 x10(3)/mc L [facility] Basophil % 0.2 % [facility] [...] HEMATOLOGY CECILIO ALEMAN [facility] [place] [address] * (ABNORMAL) Hemogram (02/20/2024 4:23 AM EDT) [...] [facility] NRBC% auto 0.0 % [facility] NRBC Absolute 0.000 0.000 - 0.000 x10(3)/mc L [facility] Blood 02/20/2024 4:23 AM EDT 02/20/2024 4:42 AM EDT Narrative Resulting Agency Comment Spec In Lab Minnie FRENCH HEMATOLOGY CECILIO ALEMAN [facility] [place] [address] * (ABNORMAL) Basic Metabolic Panel (non-fasting) (02/20/2024 [...] CHEMISTRY ORDERABLE S Performing Organization Address [facility] Co de Phone Number [facility] [place] [address] * Potassium (02/19/2024 3:57 AM EDT) Potassium [...] CHEMISTRY ORDERABLE S Performing Organization Address [facility] Co de Phone Number [facility] [place] [address] * POCT Glucose (02/18/2024 8:24 AM EDT) Glucose, POC 157 65 - 199 mg/dL [facility] Comment: Supplemental ranges: <140 mg/dL before meals <180 mg/dL all other times of the day Blood 02/18/2024 8:24 AM EDT 02/18/2024 8:24 AM EDT Hayder Graham MD POINT OF CARE TEST ORDERABLES [facility] [place] [address] * Scan, Peripheral Blood (02/18/2024 1:40 AM EDT) Plat estimate Decreased [facility] RBC Morphology Normal [facility] Blood 02/18/2024 1:40 AM EDT 02/18/2024 1:56 AM EDT Narrative Resulting Agency Comment Spec In Lab Neftali FRENCH HEMATOLOGY ORDER OLE Performing Organization Address City/[facility]/ZIP Co de Phone Number [facility] [place] [address] * (ABNORMAL) Differential, Automated (02/18/2024 1:40 AM EDT) [facility] Neutrophil % 87.1 % [facility] Neutrophil Absolute 15.03(H) 1.70 - 6.10 x10(3)/mc L [facility] Lymph % 3.0 % [facility] Lymphocytes Abs 0.5(L) 0.9 - 3.2 x10(3)/mc L [facility] Monocyte % 9.1 % [facility] Monocyte Abs 1.6(H) 0.3 - 0.9 x10(3)/mc L [facility] Eos % 0.0 % [facility] Eosinophils Abs 0.0 0.0 - 0.4 x10(3)/mc L [facility] Basophil % 0.2 % [facility] [...] HEMATOLOGY ORDER OLE [facility] [place] [address] * (ABNORMAL) Hemogram (02/18/2024 1:40 AM EDT) [...] 147 145 - 357 x10(3)/ L [facility] RDW Standard Deviation 39.9 36.0 - 45.0 [facility] RDW coefficient of variation 13.2 11.4 - 13.8 % [facility] Mean Platelet Volume 9.9 7.6 - 12.9 fL [facility] NRBC% auto 0.0 % [facility] NRBC Absolute 0.000 0.000 - 0.000 x10(3)/mc L [facility] Blood 02/18/2024 1:40 AM EDT 02/18/2024 1:56 AM EDT Narrative Resulting Agency Comment Spec In Lab Neftali FRENCH HEMATOLOGY ORDER OLE [facility] [place] [address] * (ABNORMAL) Basic Metabolic Panel (non-fasting) (02/18/2024 [...] MD CHEMISTRY ORDERABLE S Performing Organization Address City/[facility]/ZIP Co de Phone Number [facility] [place] [address] * (ABNORMAL) Troponin (02/18/2024 1:40 AM EDT) [...] [facility] Test Catalog Reference: Fourth [place] Definition of Myocardial Infarction. Journal of the [employer] 2018;72:3408-2182 Blood 02/18/2024 1:40 AM EDT 02/18/2024 1:56 AM EDT Narrative Resulting Agency Comment Spec In Lab Hayder Graham MD CHEMISTRY ORDERABLE S Performing Organization Address City/[facility]/ZIP Co de Phone Number [facility] [place] [address] * POCT Glucose (02/17/2024 8:13 PM EDT) Glucose, POC 142 65 - 199 mg/dL [facility] Comment: Supplemental ranges: <140 mg/dL before meals <180 mg/dL all other times of the day Blood 02/17/2024 8:13 PM EDT 02/17/2024 8:13 PM EDT Hayder Graham MD POINT OF CARE TEST ORDERABLES Performing Organization Address City/[facility]/ZIP Co de Phone Number [facility] [place] [address] * POCT Glucose (02/17/2024 5:42 PM EDT) Glucose, POC 160 65 - 199 mg/dL [facility] Comment: Supplemental ranges: <140 mg/dL before meals <180 mg/dL all other times of the day Blood 02/17/2024 5:42 PM EDT 02/17/2024 5:42 PM EDT Hayder Graham MD POINT OF CARE TEST ORDERABLES Performing Organization Address City/[facility]/ZIP Co de Phone Number [facility] [place] [address] * Hemoglobin (02/17/2024 5:42 PM EDT) Hemoglobin 13.7 13.7 - 16.5 g/dL [facility] Blood 02/17/2024 5:42 PM EDT 02/17/2024 6:10 PM EDT Narrative Resulting Agency Comment Spec In Lab Hayder Graham MD HEMATOLOGY ORDERABL ES [facility] [place] [address] * Potassium (02/17/2024 5:42 PM EDT) Potassium [...] MD CHEMISTRY ORDERABLE S Performing Organization Address City/State/[facility] Co de Phone Number [facility] [place] [address] * (ABNORMAL) BLOOD GAS 2 ARTERIAL (02/17/2024 [...] [facility] FIO2 Art 40 % [facility] PF Ratio Art 195 [facility] Blood 02/17/2024 4:18 PM EDT 02/17/2024 4:18 PM EDT Hayder Graham MD POINT OF CARE TEST ORDERABLES [facility] [place] [id number] * XR Chest One View (02/17/2024 1:44 PM EDT) Notice [employer] WORKSTATION ID [id number] DH RAD Anatomical Region Laterality Modality Chest N/A Digital Radiogra phy Impressions 02/17/2024 2:12 PM EDT 1. ??No definite pleural fluid collection or pneumothorax. 2. ??Right IJ [place] catheter tip terminates in a descending branch [...] please contact the health long term care phlebotomist that requested your imaging first. ? Electronically signed by: Denzel Hankins MD, [facility] ??([phone]), at 02/17/2024 2:12 PM Narrative 02/17/2024 2:12 PM EDT EXAMINATION: XR CHEST ONE VIEW CLINICAL HISTORY: s/p avr/cabg eval effusions TECHNIQUE: 1 view of the chest COMPARISON: Chest x-ray 01/09/2024, chest CT 02/03/2024 FINDINGS: ET tube tip terminates 5.2 cm above the carlos. Right IJ [place]ail[place] catheter tip terminates in a descending branch [...] 5.2 cm above the carlos. Right IJ [place]-Ganzcatheter tip terminates in a descending branch of [...] fluid collection or pneumothorax. 2. Right IJ [place] catheter tip terminates in a descending branch ofthe right pulmonary artery. Suggest catheter retraction. 3. Additional support lines and tubes as above. Thank you for letting us participate in the care of this patient. If youare a health care provider and have any questions regarding this report,please contact the number below. For patients who have questions please contactthe health long term care phlebotomist that requested your imaging first. Electronically signed by: Denzel Hankins MD, [facility]([phone]), at 02/17/2024 2:12 PM Hayder Graham MD [...] [facility] FIO2 Art 100 % [facility] PF Ratio Art 320 [facility] Blood 02/17/2024 1:31 PM EDT 02/17/2024 1:31 PM EDT Hayder Graham MD POINT OF CARE TEST ORDERABLES Performing Organization Address City/[facility]/ZIP Co de Phone Number [facility] [place] [address] * (ABNORMAL) Coox2 (02/17/2024 1:21 PM EDT) [...] OF CARE TEST ORDERABLES Performing Organization Address City/[facility] Co de Phone Number [facility] [place] [address] * (ABNORMAL) BLOOD GAS 2 ARTERIAL (02/17/2024 [...] CARE TEST ORDERABLES Performing Organization Address [facility] Co de Phone Number [facility] [place] [address] * (ABNORMAL) Fibrinogen (02/17/2024 12:10 PM EDT) [...] HEMATOLOGY ORDERABLE S Performing Organization Address [facility] Co de Phone Number [facility] [place] [address] * (ABNORMAL) Thrombin time (02/17/2024 12:10 PM [...] HEMATOLOGY ORDERABLE S Performing Organization Address [facility] de Phone Number [facility] [place] [address] * APTT (02/17/2024 12:10 PM EDT) Partial [...] MD HEMATOLOGY ORDERABLE S Performing Organization Address [facility] de Phone Number [facility] [place] [address] * (ABNORMAL) Prothrombin Time (02/17/2024 12:10 PM [...] HEMATOLOGY ORDERABLE S [facility] [place] [address] * (ABNORMAL) Hemogram (02/17/2024 12:10 PM EDT) [...] [facility] NRBC% auto 0.0 % [facility] NRBC Absolute 0.000 0.000 - 0.000 x10(3)/mc L [facility] Blood 02/17/2024 12:1 0 PM EDT 02/17/2024 12:19 PM EDT Narrative Resulting Agency Comment Spec In Lab Tara York MD HEMATOLOGY ORDERABLE S [facility] [place] [address] * (ABNORMAL) BLOOD GAS 2 ARTERIAL (02/17/2024 [...] [facility] Comment: Noted by inspector optical instrument. [...] CARE TEST ORDERABLES [facility] [place] [address] * (ABNORMAL) BLOOD GAS 2 ARTERIAL (02/17/2024 [...] [facility] Comment: Noted by inspector optical instrument. [...] CARE TEST ORDERABLES Performing Organization Address [facility] Co de Phone Number [facility] [place] [address] * (ABNORMAL) Hemoglobin and Hematocrit, blood (02/17/2024 [...] HEMATOLOGY ORDERABL ES Performing Organization Address [facility]/ZIP Co de Phone Number [facility] [place] [address] * (ABNORMAL) Platelet count (02/17/2024 11:04 AM EDT) Platelet 106(L) 145 - 357 x10(3)/mc L [facility] Immature Plt % 1.6 0.0 - 7.4 % [facility] Comment: Limitation of the Immature Platelet Fraction (IPF)-May be less reliable when the platelet count is less than 02x591/uL due to statistical imprecision. The IPF value [...] in a decreased state of production. References: [employer] The Clinical Value of the Immature Platelet Fraction (IPF) in Cell Recovery Document Number [id number] 03/2011 [employer] The Role of the Immature Platelet Fraction (IPF) in the Differential Diagnosis of Thrombocytopenia, Document [id number] V002/15/14 P002/17 Blood 02/17/2024 11:0 4 AM EDT 02/17/2024 11:12 AM EDT Narrative Resulting Agency Comment Spec In Lab Hayder Graham MD HEMATOLOGY ORDERABL ES Performing Organization Address [facility] Co de Phone Number [facility] [place] [address] * (ABNORMAL) Fibrinogen (02/17/2024 11:04 AM EDT) [...] ORDERABL ES [facility] [address] * (ABNORMAL) BLOOD GAS 2 ARTERIAL (02/17/2024 [...] CARE TEST ORDERABLES [facility] [place] [address] * (ABNORMAL) BLOOD GAS 2 ARTERIAL (02/17/2024 [...] CARE TEST ORDERABLES [facility] [place] [address] * Surgical Pathology Report (02/17/2024 10:01 AM EDT) Final Diagnosis [id number] ? Location: [facility]; [facility] [place]; The signing pathologist has (i) examined the relevant preparation(s) for the specimen(s) and (ii) rendered or confirmed the diagnosis(es). . ?Surgical Pathology DIAGNOSIS Aortic valve leaflets, excision: Valve leaflets with myxoid degeneration, nodular fibrosis and dystrophic calcifications. Electronically signed by: ?Livier Montoya MD Verified: ??02/24/2024 13:49 ??Pathologist Performed at: ??-[facility] [place], [place] [address] Office Support Assistant: Job Brewer MD, AP, ??IA Certificate: [id number] SPECIMEN(S) SUBMITTED A - Aortic Valve Leaflets, [...] Sections Processing Blocks submitted for decalcification: A1. Cmv Driver sections in 1 cassette labeled A1. ??ajw 02/24/2024 1:49 PM EDT [facility] AORTIC STRUCTURE / Unknown 02/17/2024 10:01 AM EDT 02/17/2024 10:01 AM EDT Hayder Graham MD PATHOLOGY/[place] [address] * Specimen to Pathology (02/17/2024 10:01 AM EDT) AP Specimen 02/17/2024 10:0 1 AM EDT 02/17/2024 10:01 AM EDT Narrative [facility] - 02/17/2024 10:01 AM EDT Specimen requisition ordered. ??Separate Pathology report to follow Hayder Graham MD PATHOLOGY/CYTOLOGY ORDERABLES [facility] [place] [address] * (ABNORMAL) BLOOD GAS 2 ARTERIAL (02/17/2024 [...] CARE TEST ORDERABLES [facility] [place] [address] * (ABNORMAL) BLOOD GAS 2 VENOUS (02/17/2024 9:34 AM EDT) pH, Venous 7.22(Criti marquez) 7.32 - 7.42 [facility] Comment:Noted by inspector optical instrument. PCO2, Venous 43 41 - 51 mmHg [facility] Comment:Noted by inspector optical instrument. PO2, Venous 57(H) 25 - 40 mmHg [facility] Comment:Noted by inspector optical instrument. Bicarbonate, Venous 17.1 mmol/L [facility] Comment:Noted by inspector optical instrument. Base Excess, Venous -10.6 mmol/L [facility] Comment:Noted by inspector optical instrument. Hgb Blood Gas 11.2(L) 13.7 - 16.5 g/dL [facility] Comment:Noted by inspector optical instrument. Oxyhemoglobin, Venous 86.5 % [facility] Comment:Noted by inspector optical instrument. Carboxyhemoglob in, Venous 0.3 % [facility] Comment: Noted by inspector optical instrument. Nonsmokers: 0.5-1.5% COHB Smokers: Variable, but usually less than 10% Toxic: 20-30% COHB Lethal: Greater than 60% COHB Methemoglobin, Venous 0.0 <=1.5 % [facility] Comment:Noted by inspector optical instrument. Na Whole Blood 156(H) 135 - 145 mmol/L [facility] Comment:Noted by inspector optical instrument. K Whole Blood 5.5(H) 3.5 - 5.0 mmol/L [facility] Comment: Noted by inspector optical instrument. Please note: Patients with WBC >100,000 may have falsely elevated Potassium levels. Contact the Clinical Chemistry Laboratory if there are any questions. ICa Whole Blood 1.03(L) 1.15 - 1.33 mmol/L [facility] Comment: Noted by inspector optical instrument. Note: ??Total bilirubin higher than 20 mg/dL may lead to falsely low ionized calcium. CL Whole Blood 100 98 - 107 mmol/L [facility] Comment:Noted by inspector optical instrument. Gluc Whole Bld 132 65 - 199 mg/dL [facility] Comment: Noted by inspector optical instrument. Diabetes: >=200 mg/dL plus symptoms Lactate WB 1.0 0.5 - 2.2 mmol/L [facility] Comment:Noted by inspector optical instrument. Blood Gas Source Venous [facility] Blood 02/17/2024 9:34 AM EDT 02/17/2024 9:34 AM EDT Hayder Graham MD POINT OF CARE TEST ORDERABLES [facility] [place] [address] * (ABNORMAL) BLOOD GAS 2 ARTERIAL (02/17/2024 [...] CARE TEST ORDERABLES Performing Organization Address [facility] Co de Phone Number [facility] [place] [address] * POCT Glucose (02/17/2024 6:38 AM EDT) Glucose, POC 98 65 - 199 mg/dL [facility] Comment: Supplemental ranges: <140 mg/dL before meals <180 mg/dL all other times of the day Blood 02/17/2024 6:38 AM EDT 02/17/2024 6:38 AM EDT Hayder Graham MD POINT OF CARE TEST ORDERABLES Performing Organization Address [facility] Co de Phone Number [facility] [place] [id number] * Transesophageal Echo/OR (02/17/2024 6:33 AM EDT) [...] [facility]-operative [facility] of cardiac [...] over 10 Minutes, ONCE, 1 dose, On Stalra 02/20/24 at 2115, Warning Vesicant/Irritant Medication , [...] 6 hours upon arrival to Unit. Give NJ if unable to take PO, Routine Given [...] dose on Sat02/17/24 at 1400, Until Discontinued, [place] teeth and / or gums. Scan the CHG vial in the [employer] Q-Care Oral Care Kit from floor stock. Ventilator-associated pneumonia prophylaxis For use in ICU/Critical care locations ONLY. Obtain kit from Floor Stock location. Scan CHG vial in the [employer] Q-Care Oral Care Kit, Routine Given 02/17/2024 [...] restart at 50% of previous rate. Call char house supervisor if goal not achieved at [...] 25 mg, Oral, ONCE, 1 dose, On [facility] 02/22/24 at 1000, Routine Given 02/22/2024 10:02 AM EDT 25 mg metoprolol tartrate (Lopressor) tablet 50 mg 50 mg, Oral, EVERY 12 HOURS SCHEDULED (2 times per day), First dose (after last modification) on [facility] 02/22/24 at 2100, Until Discontinued, Hold [...] PHENYLephrine and/or vasopressin ineffective. Call pager # [phone] if initiated. Titrate to keep systolic blood [...] 2.0 L/min/M2. Maximum volume 2 L. Call char house supervisor for additional fluid orders: pager #[phone]. Rate/Dose Verify 02/18/2024 8:00 AM EDT 1 [...] Routine documented in this encounter Care Teams Windows Systems Admin Relationship Specialty Start Date End Date Aparna Jordan APRN PCP - General Family Medicine 10/21/23 05/26/24 documented as of this encounter
--- OUTSIDE RECORDS SUMMARY | 2024-08-11 10:04 | XMS_ITS | Encounter Summary ---
Author Organization [place] [address] Care Team Providers Care Aerial Crop Duster Name Role Phone Vanessa Christian Lane DOTSON Primary Care Provider [phone] Reason for Referral * Diagnostic Test (Routine) - Closed Specialty Diagnoses / Procedures Referred By Contac t Referred To Contact Radiology Diagnoses Nonrheumatic aortic valve stenosis Procedures CT Chest wo Contrast (Generic) Louisa Cho PA [facility] [place] [address] [facility] [place] [address] Referral ID Status Reason Start Date Expiration Date V isits Requested Visits Authorized [id number] Closed Specialty Service Requested 01/10/2024 07/11/2025 1 1 Reason for Visit * Diagnostic Test (Routine) - Closed Specialty Diagnoses / Procedures Referred By Contac t Referred To Contact Radiology Diagnoses Nonrheumatic aortic valve stenosis Procedures CT Chest wo Contrast (Generic) Louisa Cho PA [facility] [place] [address] [facility] [place] [address] Referral ID Status Reason Start Date Expiration Date V isits Requested Visits Authorized [id number] Closed Specialty Service Requested 01/10/2024 07/11/2025 1 1 Encounter Details Date Type Department Care Team (Latest Contact Info) Description 02/03/2024 7:36 AM EDT - 02/03/2024 8:05 AM EDT Hospital Encounter CT Scan at [facility] [place] [address] Zak Farmer MD [facility] [place] [address] Nonrheumatic aortic valve stenosis Discharge Disposition: Home Social History Tobacco Use Types Packs/Day Years Used Date Smoking Tobacco: Former Cigarettes Smokeless Tobacco: Never Comments:Quit 15 + years ago Alcohol Use Standard Drinks/Week Comments Yes 0 (1 standard drink = 0.6 oz pur e alcohol) rare [facility] Inpatient Questions Answer Date Recorded Does [...] wo Contrast (Generic) (02/03/2024 7:44 AM EDT) [facility] Signature WORKSTATION ID [id number] RAD Anatomical Region Laterality Modality Chest Computed [...] Rogerio Wright MD, [facility] ([phone]), at 02/03/2024 10:00 AM Narrative 02/03/2024 10:00 [...] nodule along the minor fissure (series [id number]) and a 8 mm right lower lobe [...] by: Rogerio Wright MD, [facility]([phone]), at 02/03/2024 10:00 AM Zak Farmer MD IMG CT ORDERABLES documented in this encounter Visit Diagnoses Diagnosis Nonrheumatic aortic valve stenosis Aortic valve disorders documented in this encounter Care Teams Aerial Crop Duster Relationship Specialty Start Date End Date Vanessa Christian APRN PCP - General Family Medicine 10/21/23 05/26/24 documented as of this encounter
--- OUTSIDE RECORDS SUMMARY | 2024-08-11 10:04 | XMS_ITS | Encounter Summary ---
Author Organization [facility] [place] [address] Care Team Providers Care Chemical Instrumentation Officer Name Role Phone Vanessa Christian MAURI Primary Care Provider [phone] Reason for Visit * Auth/Cert (Routine) Specialty [...] 5.9) Rima Dickinson MD [facility] [place] [address] [facility] Referral ID Status Reason Start Date Expiration Date Visits Re quested Visits Authorized [id number] 1 1 Encounter Details Date Type Department Care Team (Latest Contact Info) Description 02/03/2024 8:06 AM EDT - 02/03/2024 2:54 PM EDT Hospital Encounter [place] [address] Rima Dickinson MD [facility] [place] [address] Screening for cardiovascular condition; Aortic valve stenosis, [...] lbs Follow-up Visits Follow up with your sports doctor in 2-4 weeks Access Site 'Black and Blue' and tenderness is expected during the first week Call if you noted a mass (lump) greater than the size of a ellis Call Office with any Questions and if you have any of the following Clarence Lane M.D Interventional Mental Health Program Specialist Adjuster #: [phone] * Attachments The following attachments cannot be [...] Pre-Procedure H&P Update: Cardiac Catheterization Karlos Anthony [id number] 1960 Chief Complaint: Aortic stenosis HPI: Mr. [...] is inthe chart Clarence Lane MD Interventional Mental Health Program Specialist 02/03/24 11:48 AM documented in this encounter Miscellaneous Notes * Brief Op Note - Clarence Lane MD - 02/03/2024 12:51 PM EDT Preliminary Cardiac Catheterization Procedure Note: Patient Name: Karlos Anthony : [id number] MR#: [id number] Case Date: 02/03/2024 Adjuster: Surgeon(s) and Role: * Saira Lua MD [...] Modality Other Narrative 02/12/2024 3:47 PM EDT ?[facility] ? Cardiac Catheterization/Intervention Report ? Patient Name: Patenaude, Karlos ? Procedure Date: 02/03/2024 ? A #: [id number] ? Primary Physician: Mogadam, Emad ? Case #: [id number] ? File Name: [id number] ? Catheterization Order Number: [id number] ? [facility] ? Final Report [place], [place] ? Patient Name: ? Karlos Anthony ? ID#: ?[id number] ? : ?1960 ? Procedure Date: ? [...] Procedure Note Saira Lua MD - 02/12/2024 [facility] Cardiac Catheterization/Intervention Report Patient Name: Karlos Anthony Procedure Date: 02/03/2024 A #: [id number] Primary Physician: Saira Lua Case #: [id number] File Name: [id number] Catheterization Order Number: [id number] [facility] FinalReport [place], [place] Patient Name: Karlos Anthony ID#:[id number] :1960 Procedure Date: February 03, 2024 Case [...] was designated as ASA Class III. The [facility] clinical frailty scale is 3: Managing Well. [...] (Bezet) 372 ms MUSE SYSTEM Calculated P [place] 59 degrees MUSE SYSTEM Calculated R [place] 34 degrees MUSE SYSTEM Calculated T [place] 63 degrees MUSE SYSTEM INTERPRETATION Sinus bradycardia [...] MD) documented in this encounter Care Teams Chemical Instrumentation Officer Relationship Specialty Start Date End Date Vanessa Christian APRN PCP - General Family Medicine 10/21/23 05/26/24 documented as of this encounter
--- OUTSIDE RECORDS SUMMARY | 2024-08-11 10:04 | XMS_ITS | Encounter Summary ---
Author Organization [facility] [place] [address] Care Team Providers Care Re Examiner Name Role Phone Aparna Jordan MAURI Primary Care Provider [phone] Reason for Visit * Auth/Cert (Routine) Specialty [...] 7.93) Hayder Graham MD [facility] [place] [address] [facility] Referral ID Status Reason Start Date Expiration Date Visits Re quested Visits Authorized [id number] 1 1 Encounter Details Date Type Department Care Team (Late st Contact Info) Description 02/17/2024 7:30 AM EDT - 02/17/2024 1:26 PM EDT Surgery [place] [id number] Hayder Graham MD [facility] C[place] [address] ENDOSCOPIC HARVEST VEIN(S) FOR CABG (WRVU 0.31) Social History Tobacco Use Types Packs/Day Years Used Date Smoking Tobacco: Former Cigarettes Smokeless Tobacco: Never Comments:Quit 15 + years ago Alcohol Use Standard Drinks/Week Comments Yes 0 (1 standard drink = 0.6 oz pur e alcohol) rare [facility] Utilities Answer Date Recorded In the [...] Patient Age: 63 y.o. Birthdate: 1960 Language: Turkmen Race: White Ethnicity: Not nor Admit Date: 02/17/2024 Discharge Date: 02/24/24 Attending Physician: Hayder Graham MD Follow-up Recommendations for Providers: Please continue routine management of cardiovascular risk factors including blood pressure, lipids,glucose, etc. Please note any changes to medications. Patient to follow up with PCP, Aparna Jordan APRN, in 1-2 weeks. Patient to follow up with Blanker Operator, Neftali Ernandez MD , in 2 weeks. Patient to follow up with Cardiac Surgeon, Dr. Hayder Graham, with a chest x-ray, EKG, and Echo. Inpatient Provider Contact Information: [facility] Section of Cardiac Surgery [facility] [address] FAX [phone] Discharge Diagnoses (Hospital Problems) Primary Diagnoses: /CAD [...] Hypertension 08/14/2023 Nevus of face 09/26/2023 Right worship Past Surgical History: Procedure Laterality Date PRO CABG, ARTERIAL, SINGLE N/A 02/17/2024 @CABG, USING ARTERIAL GRAFT;SINGLE ARTERIAL GRAFT (WRVU 33.75) performed by Hayder Graham MD at [facility] MAIN OR PRO CABG, ARTERY-VEIN, TWO N/A 02/17/2024 @CABG, TWO VENOUS GRAFTS & ARTERIAL GRAFT (WRVU 7.93) performed by Hayder Graham MD at [facility] MAIN OR PRO ENDOSCOPY W/VIDEO-ASST VEIN HARVEST, CABG Left 02/17/2024 ENDOSCOPIC HARVEST VEIN(S) FOR CABG (WRVU 0.31) performed by Hayder Graham MD at [facility] MAIN OR PRO REPLACEMENT PROSTHETIC AORTIC VALVE OPEN W CARDIOPULMONARY BYPASS HOMOGRF/STENT N/A 02/17/2024 @REPLACE AORTIC VALVE, OPEN, W\CPB, W\PROSTHETIC VALVE (WRVU 41.32) performed by Hayder Graham MD at [facility] MAIN OR Prior To Admission Medications [...] insufficiency. He has glaucoma. He used to bacTaxizu until about 15 years ago. He has [...] Hayder Graham and/or the Cardiac Surgery Physician Sex Offender Treatment Professional Team may be reached at . Antibiotic [...] Please refer to the card with the [place] [employer] Guidelines for more information. You [...] Dr. Hayder Graham. You may use a [place] Track or treadmill but avoid any pulling [...] friends, go to a movie, go to denominational, etc. Heavy activities: No hunting, skiing, jogging, [...] should resume a low fat, low cholesterol, [place] Heart [employer] Diet. Driving: No driving until [...] while being managed by your PCP and/or Blanker Operator. For future medication refills, please refer to your PCP and/or Blanker Operator after your discharge from our service. Thank you REMOVE CHEST TUBE SUTURES ON OR AFTER 03/02/24 Home oxygen therapy: N/A Follow up appointments: You should follow up with your PCP, Aparna Jordan APRN, in 1-2 weeks. Our office will schedule an appointment with your Blanker Operator, Neftali Ernandez MD , in 2 weeks. You have an appointment with your Cardiac Surgeon, Dr. Hayder Graham, 4 weeks with a chest x-ray, EKG, and Echo before your appointment. Cardiac Rehabilitation: Karlos Garcia was seen regarding participation in the outpatient Phase 2Cardiac Rehabilitation at [facility]. The patient agrees to a referral to this program. The referral will be sent at discharge and the patient should be contacted by the Program within 1- 2 weeks from discharge. Future Appointments and Orders Future Orders Complete By Expires Echocardiogram Transthoracic [12020 CPT(R)] 03/26/2024 09/25/2024 Process Instructions: Scheduling Instructions: Questions: Where will study be performed?: [facility] Clinics Does the patient have Congenital Heart Disease?: Does patient require sedation?: Sedation rationale: XR Chest PA & Lateral (Generic) [67210 12697 Custom] 03/26/2024 09/25/2024 Process Instructions: Scheduling Instructions: Questions: Portable exam?: Reason for exam and clinical history: s/p avr/cabg Clinical information / jerome questions for radiologist: Stat read required?: Date of injury if applicable: Requested Time: Where will study be performed?: [facility] Radiology Referral to Cardiac Rehab [FEP698 Custom] As directed Process Instructions: If no progress note charted, please enter Clinical details in comments. Scheduling Instructions: Questions: My question or request is: s/p AVR/CABG. Cardiac rehab at [facility]. Referral to Home Health [REF34 Custom] As directed Process Instructions: If no progress note charted, please enter Clinical details in comments. Scheduling Instructions: Comments: Please evaluate Karlos Garcia for admission to Home Health. [address] Phone Number: Date of : 1960 Inpatient DOCUMENTATION FOR VNA SERVICES (INCLUDING THOSE PATIENTS WITH MEDICARE COVERAGE REQUIRING HOME VNA SERVICES AND/OR HOSPICE SERVICES) PATIENT'S LOCATION: Karlos Garcia [address] [employer] [phone] Post Production Assistant's Name: self/family In discussion with the attending physician, it is certified that this patient is under their care and that they, or a Nurse Practitioner, or Physician Sex Offender Treatment Professional who is working directly with them, hada [...] for services as follows: HOME HEALTH AGENCY: [facility] [address] [place] [address] RN orders: Cardiopulmonary assessment, incisional assessment, assess [...] issues please call the Cardiology Office at [phone] FOR MEDICARE ONLY: (please delete this section [...] care: As above. Signed: NEFTALI MENON PA-C [facility] Section of Cardiac Surgery [facility] [address] FAX [phone] Date: 02/24/2024 CC: Aparna Jordan, MAURI Jordan, Aparna Sherman APRN [address] [place] [address] documented in this encounter Discharge Instructions * [...] Hayder Graham and/or the Cardiac Surgery Physician Sex Offender Treatment Professional Team may be reached at . Antibiotic [...] Please refer to the card with the [place] Heart Association Guidelines for more information. You [...] Dr. Hayder Graham. You may use a [place] Track or treadmill but avoid any pulling [...] friends, go to a movie, go to denominational, etc. Heavy activities: No hunting, skiing, jogging, [...] should resume a low fat, low cholesterol, [place] Heart [employer] Diet. Driving: No driving until [...] while being managed by your PCP and/or Blanker Operator. For future medication refills, please refer to your PCP and/or Blanker Operator after your discharge from our service. Thank you REMOVE CHEST TUBE SUTURES ON OR AFTER 03/02/24 Home oxygen therapy: N/A Follow up appointments: You should follow up with your PCP, Aparna Jordan APRN, in 1-2 weeks. Our office will schedule an appointment with your Blanker Operator, Neftali Ernandez MD , in 2 weeks. You have an appointment with your Cardiac Surgeon, Dr. Hayder Graham, 4 weeks with a chest x-ray, EKG, and Echo before your appointment. Cardiac Rehabilitation: Karlos Garcia was seen regarding participation in the outpatient Phase 2Cardiac Rehabilitation at [facility]. The patient agrees to a [...] 0600 and on the weekends please page [phone]. * Eric Barahona PA - 02/23/2024 9:27 [...] 0600 and on the weekends please page [phone]. * Tiffanie Owens, UNIVERSITY ARCHIVIST - 02/22/2024 2:48 PM EDT Physical Therapy [...] Pt reports his dtr is coming from [place] to stay upon d/c for 10 days. 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 He works Precautions/Special Considerations: STERNAL [...] LRAD and supervision Time IN / OUT: 4709-6981 Total Time: 30 minutes; TEFx2 Tiffanie Owens Pager: [phone] Physical Therapy Inpatient Rehabilitation Department * Romeo [...] 0600 and on the weekends please page [phone]. * Kelley Hinson UNIVERSITY ARCHIVIST - 02/21/2024 10:15 AM EDT Physical Therapy [...] Pt reports his dtr is coming from [place] to stay upon d/c for 10 days. 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 He works Precautions/Special Considerations: STERNAL [...] LRAD and supervision Time IN / OUT: 3607-0242 Total Time: 25 minutes; TEF 2 Kelley Hinson PTA Pager: [phone] Physical Therapy Inpatient Rehabilitation Department * Louisa [...] 0600 and on the weekends please page [phone]. * Kelley Hinson PTA - 02/20/2024 3:32 [...] at that time Kelley Hinson PTA Pager: [phone] Physical Therapy Inpatient Rehab Department * Louisa [...] 0600 and on the weekends please page [phone]. * Maris Benavides, PT - 02/19/2024 11:22 [...] Pt reports his dtr is coming from [place] to stay upon d/c for 10 days. 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 Precautions/Special Considerations: STERNAL [...] outlined inthis evaluation. MARIS BENAVIDES, PT Pager: [phone] Physical Therapy Inpatient Rehabilitation Department Time IN / OUT: 3973-2596 Total Time: 38 (eval) minutes; * Antonio [...] 0600 and on the weekends please page [phone]. * Minnie Begum PA - 02/18/2024 8:25 [...] 0600 and on the weekends please page [phone]. * Kim Ha RCP - 02/17/2024 2:25 [...] plan since last visit. Hayder Graham MD [phone] Source Note - Hayder Graham MD - [...] given written informed consent. Hayder Graham MD [phone] * Hayder Graham MD - 02/17/2024 7:00 [...] given written informed consent. Hayder Graham MD [phone] documented in this encounter Miscellaneous Notes * [...] for follow-up Home Health & Hospice, [address] [place] [address] Cardiac Rehab, [address] [place] [address] Transportation: family or friend will provide Functional status prior to admission: Independent Home Environment: Others in the home: alone. Current Living Arrangements: home/apartment/condo. Accessibility Concerns:a few steps to enter 1 floor home. Current Functional Ability: Assistive Person and Equipment DME used at home: none DME Needed at Discharge: N/A Patient is insured through: Primary Insurance: [employer] Payor: [facility] / Plan: [facility] PPO / Product Type: *No [...] pain managed with scheduled Tylenol. Worked with [facility]. Ambulated in the roque multiple times during [...] anticipated Patient is insured through: Primary Insurance: [facility] Payor: [facility] / Plan: [facility] PPO / Product Type: *No Product type* / Secondary Insurance: N/A Last Physical Therapy Recommendation: home with home health (Str coming to stay for a week or two upon d/c) with to be determined (owns rolling walker, shower seat) Plan for discharge is: Home w/ Services Outpatient Agency/Support Group Needs: Homecare agency Home Health Services: Physical Therapy, Registered Nurse Agency Referrals: [facility] [address] [place] [phone] Transportation: family or friend will provide Barriers to discharge: Discharge planning Plan going forward: Service Care Management will continue to follow and assist with discharge planning and coordination of care as indicated. Anticipated Date of Discharge: 02/22/2024 Rhett Bell RN RN/CM - Cellphone: [phone] Pager: [phone] Covering Service RN/CM * Plan of Care [...] Yang RN - 02/19/2024 10:44 AM EDT [facility] CARDIAC REHABILITATION Karlos Garcia was seen today regarding participation in the outpatient Phase 2 Cardiac Rehabilitation at [facility]. The patient agrees to a [...] Hypertension 08/14/2023 Nevus of face 09/26/2023 Right worship Hospitalizations Within the Past 30 Days: no previous admission in last 30 days Current Decision-Making Capacity: Self If AD's have not been completed the following surrogate would be surrogate decision maker per [place] surrogate decision making law. (Only good for 180 days) Any patient receiving care in [place] must abide by [place] law. The hierarchy [...] steady place to sleep or slept in [facility] (including now)?: No In the past 12 months has the [employer], gas, oil, or water [employer] threatened to shut off services in [...] as: [address] [facility] [address] Physical address: [address] [facility], [address] Social & Family Supports: All names listed [...] Information: none noted Health/Prescription Coverage: Primary Insurance: [facility] Payor: [facility] / Plan: [facility] PPO / Product Type: *No Product type* / Secondary Insurance: N/A ; Prescription Coverage: Yes Preferred Pharmacy: [id number] [address] [place] Status: Patient is a : No Primary Care Provider confirmed: Aparna Jordan, MAURI [phone] Patient/Caregiver Goals of Treatment: dc to home Potential Needs for Transition of Care: home health care Agency Referrals: I have met with the patient to: discuss discharge planning needs. provide the [facility], Office of Care Management letter from the Promotions Coordinator pertaining to rehab referrals. provide a letter describing our affiliations within the [facility] and educate about their right to choose where referrals are sent. provide a list of Home Health Agencies / Durable Medical Equipment vendors which serve their preferred geographic area. provided patient with [facility] Star Quality Rating handout. They have requested referrals to: [facility] [address] [place] [address] Note routed to a Litigation Secretary who will communicate referrals to facilities and [...] daughter, Cielo, will be coming in from [place] on 02/18, to stay with him , [...] Reina Greene RN CM, BSN, CMGT-BC Ext [phone] * Plan of Care - Binta Trinidad [...] Operative Note Patient Name: Karlos Garcia : [id number] MR#: [id number] Case Date: 02/17/2024 Surgeon: Surgeon(s) and Role: * Hayder Graham MD - Primary * Neftali Menon PA - Physician Sex Offender Treatment Professional Preoperative diagnosis: CAD Postoperative diagnosis: CAD, intraoperative [...] mL Drains: Mediastinal and Left pleural Disposition: [facility] Condition: doing well without problems Attestation: Case Date: 02/17/2024 I performed this procedure without the involvement of a resident. HAYDER GRAHAM MD 02/17/2024 * Op Note - Hayder Graham MD - 02/17/2024 8:20 AM EDT [facility] Operative Note Patient Name: Karlos Garcia : [id number] MR#: [id number] Case Date: 02/17/2024 Surgeon: Surgeons and Role: * Hayder Graham MD - Primary * Neftali Menon PA - Physician Sex Offender Treatment Professional Preoperative diagnosis: CAD Postoperative diagnosis: CAD, intraoperative [...] mL Drains: Mediastinal and Left pleural Disposition: [facility] Procedure Description: The patient was [...] Aortic Valve Open W Cardiopulmonary Bypass Homogrf/Stent (76371) Yes 02/17/2024 7:28 AM EDT CAD Cabg, Artery-Vein, Two (62932) Yes 02/17/2024 7:28 AM EDT CAD Cabg, Arterial, Single (47122) Yes 02/17/2024 7:28 AM EDT CAD Endoscopy W/Video-Asst Vein [place], Cabg (75755) Yes 02/17/2024 7:28 AM EDT CAD POCT [...] CHEMISTRY ORDERABLE S [facility] [place] [address] * (ABNORMAL) Basic Metabolic Panel (non-fasting) (02/23/2024 [...] Carpio MD CHEMISTRY ORDERABLES Performing Organization Address [facility] Co de Phone Number [facility] [place] [address] * Potassium (02/22/2024 4:30 AM EDT) Potassium [...] MD CHEMISTRY ORDERABLE S Performing Organization Address [facility] Co de Phone Number [facility] [place] [address] * (ABNORMAL) Basic Metabolic Panel (non-fasting) (02/21/2024 [...] MD CHEMISTRY ORDERABLES [facility] [place] [address] * Lactate, whole blood, send to lab ([facility]) (02/21/2024 9:45 AM EDT) Lactate WB 2.0 0.5 - 2.2 mmol/L [facility] Blood 02/21/2024 9:45 AM EDT 02/21/2024 9:52 AM EDT Narrative Resulting Agency Comment Spec In Lab Hayder Graham MD CHEMISTRY ORDERABLE S Performing Organization Address City/[facility]/ZIP Co de Phone Number [facility] [place] [address] * (ABNORMAL) Hepatic Function Panel (02/21/2024 9:45 AM EDT) Pathologist [facility] Protein, Total 5.7(L) 6.1 - 8.0 g/dL [...] MD CHEMISTRY ORDERABLE S Performing Organization Address City/[facility]/ZIP Co de Phone Number [facility] [place] [address] * Lipase (02/21/2024 9:45 AM EDT) Pathologist [facility] Lipase 56 0 - 60 unit/L [facility] Blood 02/21/2024 9:45 AM EDT 02/21/2024 9:52 AM EDT Narrative Resulting Agency Comment Spec In Lab Hayder Graham MD CHEMISTRY ORDERABLE S Performing Organization Address [facility] Co de Phone Number [facility] [place] [address] * Amylase (02/21/2024 9:45 AM EDT) Amylase 69 28 - 100 unit/L [facility] Blood 02/21/2024 9:45 AM EDT 02/21/2024 9:52 AM EDT Narrative Resulting Agency Comment Spec In Lab Hayder Graham MD CHEMISTRY ORDERABLE S Performing Organization Address [facility] de Phone Number [facility] [place] [address] * Potassium (02/21/2024 3:08 AM EDT) Pathologist [facility] Potassium 3.8 3.5 - 5.0 mmol/L MAY[facility] [...] MD CHEMISTRY ORDERABLE S Performing Organization Address [facility] Co de Phone Number [facility] [place] [address] * XR Chest PA & Lateral (Generic) (02/20/2024 10:19 AM EDT) WORKSTATION ID [id number] RAD Anatomical Region Laterality Modality Chest N/A [...] ? Electronically signed by: Rogerio Cruz MD, [facility] ??([phone]), at 02/20/2024 1:11 PM Narrative 02/20/2024 1:11 PM EDT EXAMINATION: XR CHEST PA AND LATERAL (GENERIC) CLINICAL HISTORY: s/p AVR/CABGx3 TECHNIQUE: PA and lateral views of the chest COMPARISON: 02/17/2024 FINDINGS: Support devices: Interval removal of [place] catheter, endotracheal tube and mediastinal chest tubes The cardiac silhouette is stable status post median sternotomy, CABG and aortic valve replacement. There are small pleural effusions. No pneumothorax. Procedure Note Rogerio Cruz MD - 02/20/2024 EXAMINATION: XR CHEST PA AND LATERAL (GENERIC) CLINICAL HISTORY: s/p AVR/CABGx3 TECHNIQUE: PA and lateral views of the chest COMPARISON: 02/17/2024 FINDINGS: Support devices: Interval removal of [place] catheter, endotracheal tubeand mediastinal chest tubes The [...] technical supervisor that requested your imaging first. Electronically signed by: Rogerio Cruz MD, [facility]([phone]), at 02/20/2024 1:11 PM Hayder Graham MD IMG DX ORDERABLES * Scan, Peripheral Blood (02/20/2024 4:23 AM EDT) Plat estimate Decreased [facility] RBC Morphology Normal [facility] Blood 02/20/2024 4:23 AM EDT 02/20/2024 4:42 AM EDT Narrative Resulting Agency Comment Spec In Lab Minnie FRENCH HEMATOLOGY CECILIO ALEMAN [facility] [place] [address] * (ABNORMAL) Differential, Automated (02/20/2024 4:23 AM EDT) Pathologist [facility] Neutrophil % 81.7 % [facility] Neutrophil Absolute 10.37(H) 1.70 - 6.10 x10(3)/mc L [facility] Lymph % 7.4 % [facility] Lymphocytes Abs 0.9 0.9 - 3.2 x10(3)/mc L [facility] Monocyte % 9.7 % [facility] Monocyte Abs 1.2(H) 0.3 - 0.9 x10(3)/mc L [facility] Eos % 0.1 % [facility] Eosinophils Abs 0.0 0.0 - 0.4 x10(3)/mc L [facility] Basophil % 0.2 % [facility] [...] Absolute 0.12(H) 0.00 - 0.04 x10(3)/ L [facility] Blood 02/20/2024 4:23 AM EDT 02/20/2024 4:42 AM EDT Narrative Resulting Agency Comment Spec In Lab Minnie FRENCH HEMATOLOGY CECILIO ALEMAN [facility] [place] [address] * (ABNORMAL) Hemogram (02/20/2024 4:23 AM EDT) White Blood Cell 12.7(H) 4.0 - 9.5 x10(3)/[facility] LAB[facility]AT[facility] Red Blood Cell 4.26(L) 4.58 - 5.54 x10(6)/[facility] LAB[facility]ORY Hemoglobin 12.3(L) 13.7 - 16.5 g/dL [facility] Hematocrit 37.1(L) 40.5 - 48.5 % [facility] Mean Cell Volume 87.1 82.9 - 93.1 [facility] Mean Cell Hemoglobin 28.9 27.5 - 32.1 pg [facility] Mean Cell Hemoglobin Concentration 33.2 32.0 - 35.7 g/dL [facility] Platelet 88(L) 145 - 357 x10(3)/[facility] LABORATORY RDW Standard Deviation 43.5 36.0 - 45.0 [facility] RDW coefficient of variation 13.7 11.4 - 13.8 % [facility] Mean Platelet Volume 10.2 7.6 - 12.9 [facility] LAB[facility]ORY NRBC% auto 0.0 % [facility] NRBC Absolute 0.000 0.000 - 0.000 x10(3)/ L [facility] Blood 02/20/2024 4:23 AM EDT 02/20/2024 4:42 AM EDT Narrative Resulting Agency Comment Spec In Lab Minnie FRENCH HEMATOLOGY CECILIO ALEMAN [facility] [place] [address] * (ABNORMAL) Basic Metabolic Panel (non-fasting) (02/20/2024 [...] MD CHEMISTRY ORDERABLE S Performing Organization Address City/[facility]/ZIP Co de Phone Number [facility] [place] [address] * Potassium (02/19/2024 3:57 AM EDT) Potassium [...] MD CHEMISTRY ORDERABLE S Performing Organization Address [facility] Co de Phone Number [facility] [place] [address] * POCT Glucose (02/18/2024 8:24 AM EDT) Glucose, POC 157 65 - 199 mg/dL [facility] Comment: Supplemental ranges: <140 mg/dL before meals <180 mg/dL all other times of the day Blood 02/18/2024 8:24 AM EDT 02/18/2024 8:24 AM EDT Hayder Graham MD POINT OF CARE TEST ORDERABLES Performing Organization Address [facility]/ZIP Co de Phone Number [facility] [place] [address] * Scan, Peripheral Blood (02/18/2024 1:40 AM EDT) Plat estimate Decreased [facility] RBC Morphology Normal [facility] Blood 02/18/2024 1:40 AM EDT 02/18/2024 1:56 AM EDT Narrative Resulting Agency Comment Spec In Lab Neftali FRENCH HEMATOLOGY ORDER OLE [facility] [place] [address] * (ABNORMAL) Differential, Automated (02/18/2024 1:40 AM EDT) Neutrophil % 87.1 % [facility] Neutrophil Absolute 15.03(H) 1.70 - 6.10 x10(3)/mc L [facility] Lymph % 3.0 % [facility] Lymphocytes Abs 0.5(L) 0.9 - 3.2 x10(3)/mc L [facility] Monocyte % 9.1 % [facility] Monocyte Abs 1.6(H) 0.3 - 0.9 x10(3)/mc L [facility] Eos % 0.0 % [facility] Eosinophils Abs 0.0 0.0 - 0.4 x10(3)/mc L [facility] Basophil % 0.2 % [facility] [...] HEMATOLOGY ORDER OLE [facility] [place] [address] * (ABNORMAL) Hemogram (02/18/2024 1:40 AM EDT) [...] [facility] NRBC% auto 0.0 % [facility] NRBC Absolute 0.000 0.000 - 0.000 x10(3)/mc L [facility] Blood 02/18/2024 1:40 AM EDT 02/18/2024 1:56 AM EDT Narrative Resulting Agency Comment Spec In Lab Neftali FRENCH HEMATOLOGY ORDER OLE [facility] [place] [address] * (ABNORMAL) Basic Metabolic Panel (non-fasting) (02/18/2024 [...] CHEMISTRY ORDERABLE S [facility] [place] [address] * (ABNORMAL) Troponin (02/18/2024 1:40 AM EDT) [...] [facility] Laboratory Test Catalog Reference: Fourth [place] Definition of Myocardial Infarction. Journal of the [place] [employer] 2018;72:0744-4906 Blood 02/18/2024 1:40 AM EDT 02/18/2024 1:56 AM EDT Narrative Resulting Agency Comment Spec In Lab Hayder Graham MD CHEMISTRY ORDERABLE S [facility] [place] [address] * POCT Glucose (02/17/2024 8:13 PM EDT) Glucose, POC 142 65 - 199 mg/dL [facility] Comment: Supplemental ranges: <140 mg/dL before meals <180 mg/dL all other times of the day Blood 02/17/2024 8:13 PM EDT 02/17/2024 8:13 PM EDT Hayder Graham MD POINT OF CARE TEST ORDERABLES Performing Organization Address [facility] Co de Phone Number [facility] [place] [address] * POCT Glucose (02/17/2024 5:42 PM EDT) Glucose, POC 160 65 - 199 mg/dL [facility] Comment: Supplemental ranges: <140 mg/dL before meals <180 mg/dL all other times of the day Blood 02/17/2024 5:42 PM EDT 02/17/2024 5:42 PM EDT Hayder Graham MD POINT OF CARE TEST ORDERABLES Performing Organization Address [facility] Co de Phone Number [facility] [place] [address] * Hemoglobin (02/17/2024 5:42 PM EDT) [facility] Signature Hemoglobin 13.7 13.7 - 16.5 g/dL [facility] Blood 02/17/2024 5:42 PM EDT 02/17/2024 6:10 PM EDT Narrative Resulting Agency Comment Spec In Lab Hayder Graham MD HEMATOLOGY ORDERABL ES Performing Organization Address [facility] Co de Phone Number [facility] [place] [address] * Potassium (02/17/2024 5:42 PM EDT) [facility] Signature Potassium 4.3 3.5 - 5.0 mmol/L MAY[facility] [...] CHEMISTRY ORDERABLE S [facility] [place] [address] * (ABNORMAL) BLOOD GAS 2 ARTERIAL (02/17/2024 [...] [facility] PF Ratio Art 195 [facility] Blood 02/17/2024 4:18 PM EDT 02/17/2024 4:18 PM EDT Hayder Graham MD POINT OF CARE TEST ORDERABLES [facility] [place] [address] * XR Chest One View (02/17/2024 1:44 PM EDT) [employer] WORKSTATION ID [id number] DH RAD Anatomical Region Laterality Modality Chest N/A Digital Radiogra phy Impressions 02/17/2024 2:12 PM EDT 1. ??No definite pleural fluid collection or pneumothorax. 2. ??Right IJ [place]-Kaila catheter tip terminates in a descending branch [...] ? Electronically signed by: Denzel Hankins MD, [facility] ??([phone]), at 02/17/2024 2:12 PM Narrative 02/17/2024 2:12 PM EDT EXAMINATION: XR CHEST ONE VIEW CLINICAL HISTORY: s/p avr/cabg eval effusions TECHNIQUE: 1 view of the chest COMPARISON: Chest x-ray 01/09/2024, chest CT 02/03/2024 FINDINGS: ET tube tip terminates 5.2 cm above the carlos. Right IJ [place]-Kaila catheter tip terminates in a descending branch [...] 5.2 cm above the carlos. Right IJ [place]-Ganzcatheter tip terminates in a descending branch of [...] fluid collection or pneumothorax. 2. Right IJ [place]a catheter tip terminates in a descending branch [...] technical supervisor that requested your imaging first. Electronically signed by: Denzel Hankins MD, [facility]([phone]), at 02/17/2024 2:12 PM Hayder Graham MD [...] [facility] FIO2 Art 100 % [facility] PF Ratio Art 320 [facility] Blood 02/17/2024 1:31 PM EDT 02/17/2024 1:31 PM EDT Hayder Graham MD POINT OF CARE TEST ORDERABLES [facility] [place] [address] * (ABNORMAL) Coox2 (02/17/2024 1:21 PM EDT) [...] OF CARE TEST ORDERABLES Performing Organization Address City/[facility]/ZIP Co de Phone Number [facility] [place] [address] * (ABNORMAL) BLOOD GAS 2 ARTERIAL (02/17/2024 [...] OF CARE TEST ORDERABLES Performing Organization Address [facility] Co de Phone Number [facility] [place] [address] * (ABNORMAL) Fibrinogen (02/17/2024 12:10 PM EDT) [...] MD HEMATOLOGY ORDERABLE S Performing Organization Address [facility] Co de Phone Number [facility] [place] [address] * (ABNORMAL) Thrombin time (02/17/2024 12:10 PM [...] MD HEMATOLOGY ORDERABLE S Performing Organization Address [facility] Co de Phone Number [facility] [place] [address] * APTT (02/17/2024 12:10 PM EDT) Partial [...] MD HEMATOLOGY ORDERABLE S Performing Organization Address [facility] Co de Phone Number [facility] [place] [address] * (ABNORMAL) Prothrombin Time (02/17/2024 12:10 PM [...] HEMATOLOGY ORDERABLE S [facility] [place] [address] * (ABNORMAL) Hemogram (02/17/2024 12:10 PM EDT) [...] [facility] NRBC% auto 0.0 % [facility] NRBC Absolute 0.000 0.000 - 0.000 x10(3)/mc L [facility] Blood 02/17/2024 12:1 0 PM EDT 02/17/2024 12:19 PM EDT Narrative Resulting Agency Comment Spec In Lab Tara York MD HEMATOLOGY ORDERABLE S [facility] [place] [address] * (ABNORMAL) BLOOD GAS 2 ARTERIAL (02/17/2024 [...] [facility] Comment: Noted by musical instrument maker. Please note: Patients with WBC >100,000 [...] CARE TEST ORDERABLES [facility] [address] [place] [address] * (ABNORMAL) BLOOD GAS 2 ARTERIAL (02/17/2024 [...] [facility] Comment: Noted by musical instrument maker. Please note: Patients with WBC >100,000 [...] OF CARE TEST ORDERABLES Performing Organization Address [facility] de Phone Number [facility] [place] [address] * (ABNORMAL) Hemoglobin and Hematocrit, blood (02/17/2024 [...] MD HEMATOLOGY ORDERABL ES Performing Organization Address [facility] de Phone Number [facility] [place] [address] * (ABNORMAL) Platelet count (02/17/2024 11:04 AM EDT) Platelet 106(L) 145 - 357 x10(3)/mc L [facility] Immature Plt % 1.6 0.0 - 7.4 % [facility] Comment: Limitation of the Immature Platelet Fraction (IPF)-May be less reliable when the platelet count is less than 85q232/uL due to statistical imprecision. The IPF value [...] in a decreased state of production. References: [employer] The Clinical Value of the Immature Platelet Fraction (IPF) in Cell Recovery Document Number [id number] 03/2011 [employer] The Role of the Immature Platelet Fraction (IPF) in the Differential Diagnosis of Thrombocytopenia, Document MKT-[id number] V002/15/14 Blood 02/17/2024 11:0 4 AM EDT 02/17/2024 11:12 AM EDT Narrative Resulting Agency Comment Spec In Lab Hayder Graham MD HEMATOLOGY ORDERABL ES Performing Organization Address City/[facility]/ZIP Co de Phone Number [facility] [place] [address] * (ABNORMAL) Fibrinogen (02/17/2024 11:04 AM EDT) [...] HEMATOLOGY ORDERABL ES Performing Organization Address City/[facility]/ZIP Co de Phone Number [facility] [place] [address] * (ABNORMAL) BLOOD GAS 2 ARTERIAL (02/17/2024 [...] TEST ORDERABLES [facility] [place] [address] * (ABNORMAL) BLOOD GAS 2 ARTERIAL (02/17/2024 [...] [facility] Co de Phone Number [facility] [place] [address] * Surgical Pathology Report (02/17/2024 10:01 AM EDT) Final Diagnosis [id number] ? Location: [facility]; [facility]; The signing pathologist has (i) examined the relevant preparation(s) for the specimen(s) and (ii) rendered or confirmed the diagnosis(es). . ?Surgical Pathology DIAGNOSIS Aortic valve leaflets, excision: Valve leaflets with myxoid degeneration, nodular fibrosis and dystrophic calcifications. Electronically signed by: ?Lindsay FERNANDEZ, Livier Gonzalez Verified: ??02/24/2024 13:49 ??Pathologist Performed at: ??-[facility] Dept. of Pathology, [place] [address] Promotions Coordinator: Job Brewer MD, FCAP, ??CLIA Certificate: [id number] SPECIMEN(S) SUBMITTED A - Aortic Valve Leaflets, [...] Sections Processing Blocks submitted for decalcification: A1. Workforce Development Program Director sections in 1 cassette labeled A1. ??ajw 02/24/2024 1:49 PM EDT [facility] AORTIC STRUCTURE / Unknown 02/17/2024 10:01 AM EDT 02/17/2024 10:01 AM EDT Hayder Graham MD PATHOLOGY/[place] [address] * Specimen to Pathology (02/17/2024 10:01 AM EDT) AP Specimen 02/17/2024 10:0 1 AM EDT 02/17/2024 10:01 AM EDT Narrative [facility] - 02/17/2024 10:01 AM EDT Specimen requisition ordered. ??Separate Pathology report to follow Hayder Graham MD PATHOLOGY/CYTOLOGY ORDERABLES [facility] [place] [address] * (ABNORMAL) BLOOD GAS 2 ARTERIAL (02/17/2024 [...] CARE TEST ORDERABLES [facility] [place] [address] * (ABNORMAL) BLOOD GAS 2 VENOUS (02/17/2024 9:34 AM EDT) pH, Venous 7.22(Criti marquez) 7.32 - 7.42 [facility] Comment:Noted by musical instrument maker. PCO2, Venous 43 41 - 51 mmHg [facility] Comment:Noted by musical instrument maker. PO2, Venous 57(H) 25 - 40 mmHg [facility] Comment:Noted by musical instrument maker. Bicarbonate, Venous 17.1 mmol/L [facility] Comment:Noted by musical instrument maker. Base Excess, Venous -10.6 mmol/L [facility] Comment:Noted by musical instrument maker. Hgb Blood Gas 11.2(L) 13.7 - 16.5 g/dL [facility] Comment:Noted by musical instrument maker. Oxyhemoglobin, Venous 86.5 % [facility] Comment:Noted by musical instrument maker. Carboxyhemoglob in, Venous 0.3 % [facility] Comment: Noted by musical instrument maker. Nonsmokers: 0.5-1.5% COHB Smokers: Variable, but usually less than 10% Toxic: 20-30% COHB Lethal: Greater than 60% COHB Methemoglobin, Venous 0.0 <=1.5 % [facility] Comment:Noted by musical instrument maker. Na Whole Blood 156(H) 135 - 145 mmol/L [facility] Comment:Noted by musical instrument maker. K Whole Blood 5.5(H) 3.5 - 5.0 mmol/L [facility] Comment: Noted by musical instrument maker. Please note: Patients with WBC >100,000 may have falsely elevated Potassium levels. Contact the Clinical Chemistry Laboratory if there are any questions. ICa Whole Blood 1.03(L) 1.15 - 1.33 mmol/L [facility] Comment: Noted by musical instrument maker. Note: ??Total bilirubin higher than 20 mg/dL may lead to falsely low ionized calcium. CL Whole Blood 100 98 - 107 mmol/L [facility] Comment:Noted by musical instrument maker. Gluc Whole Bld 132 65 - 199 mg/dL [facility] Comment: Noted by musical instrument maker. Diabetes: >=200 mg/dL plus symptoms Lactate WB 1.0 0.5 - 2.2 mmol/L [facility] Comment:Noted by musical instrument maker. Blood Gas Source Venous [facility] Blood 02/17/2024 9:34 AM EDT 02/17/2024 9:34 AM EDT Hayder Graham MD POINT OF CARE TEST ORDERABLES [facility] [place] [address] * (ABNORMAL) BLOOD GAS 2 ARTERIAL (02/17/2024 [...] OF CARE TEST ORDERABLES Performing Organization Address City/[facility]/ZIP Co de Phone Number [facility] [place] [address] * POCT Glucose (02/17/2024 6:38 AM EDT) Glucose, POC 98 65 - 199 mg/dL [facility] Comment: Supplemental ranges: <140 mg/dL before meals <180 mg/dL all other times of the day Blood 02/17/2024 6:38 AM EDT 02/17/2024 6:38 AM EDT Hayder Graham MD POINT OF CARE TEST ORDERABLES Performing Organization Address [facility] Co de Phone Number [facility] [place] [address] * Transesophageal Echo/OR (02/17/2024 6:33 AM EDT) [...] [facility] [...] Routine documented in this encounter Care Teams Re Examiner Relationship Specialty Start Date End Date Aparna Jordan APRN PCP - General Family Medicine 10/21/23 05/26/24 documented as of this encounter
--- OUTSIDE RECORDS SUMMARY | 2024-08-11 10:04 | XMS_ITS | Encounter Summary ---
Author Organization [facility] Address [facility] [place] [address] Care Team Providers Care Section Chief Name Role Phone Vanessa Christian MAURI Primary Care Provider [phone] Encounter Details Date Type Department Care Team (Late st Contact Info) Description 02/14/2024 Orders Only [place] [id number] Zak Farmer MD [facility] DR CARDIOTHORACIC [place] [address] Coronary artery disease, unspecified vessel or lesion type, unspecified whether angina present, unspecified whether [place] or transplanted heart (Primary Dx) Social History [...] (Bezet) 401 ms MUSE SYSTEM Calculated P [place] -12 degrees MUSE SYSTEM Calculated R [place] 24 degrees MUSE SYSTEM Calculated T [place] 74 degrees MUSE SYSTEM INTERPRETATION Sinus bradycardia T wave abnormality, consider anterior ischemia Abnormal ECG When compared with ECG of 17-FEB-2024 13:24, NV interval has decreased T wave inversion now evident in Anterior leads Confirmed by Paul Guzman ([id number]) on 03/15/2024 8:36:23 AM MUSE SYSTEM 03/12/2024 2:35 PM EDT 03/15/2024 8:36 AM EDT Zak Farmer MD ECG ORDERABLES MUSE SYSTEM * XR Chest PA & Lateral (Generic) (03/12/2024 1:42 PM EDT) Pathologist [facility] WORKSTATION ID [id number] [facility] Anatomical Region Laterality [...] signed by: Augie Sanchez MD, [facility] ([phone]), at 03/13/2024 8:28 AM Narrative 03/13/2024 8:28 AM EDT EXAMINATION: XR CHEST PA AND LATERAL (GENERIC) CLINICAL HISTORY: s/p cabg eval effusions I25.10, Atherosclerotic heart disease of [place] coronary artery without angina pectoris TECHNIQUE: PA [...] eval effusions I25.10, Atherosclerotic heart disease of [place] coronary artery withoutangina pectoris TECHNIQUE: PA and [...] signed by: Augie Sanchez MD, [facility]([phone]), at 03/13/2024 8:28 AM Zak Farmer MD IMG DX ORDERABLES documented in this encounter Visit Diagnoses Diagnosis Coronary artery disease, unspecified vessel or lesion type, unspecified whether angina present, unspecified whether [place] or transplanted heart- Primary Coronary artery disease, unspecified vessel or lesion type, unspecified whether angina present, unspecified whether [place] or transplanted heart documented in this encounter Care Teams Section Chief Relationship Specialty Start Date End Date Vanessa Christian APRN PCP - General Family Medicine 10/21/23 05/26/24 documented as of this encounter
--- OUTSIDE RECORDS SUMMARY | 2024-08-11 10:04 | XMS_ITS | Encounter Summary ---
Author Organization [facility] [place] [address] Care Team Providers Care Warehouse Examiner Name Role Phone Vanessa Christian APRN Primary Care Provider [phone] Encounter Details Date Type Department Care Team [...] on filedocumented in this encounter Care Teams Warehouse Examiner Relationship Specialty Start Date End Date Vanessa Christian APRN PCP - General Family Medicine 10/21/23 05/26/24 documented as of this encounter
--- OUTSIDE RECORDS SUMMARY | 2024-08-11 10:04 | XMS_ITS | Encounter Summary ---
Author Organization [facility] [place] [address] Care Team Providers Care Supervisor Order Takers Name Role Phone Vanessa Christian MAURI Primary Care Provider [phone] Reason for Visit * Auth/Cert (Routine) Specialty [...] ARTERIAL GRAFT (WRVU 7.93) Zak Farmer MD [facility] [place] [address] [facility] Referral ID Status Reason Start Date Expiration Date Visits Re quested Visits Authorized [id number] 1 1 Encounter Details Date Type Department Care Team (Late st Contact Info) Description 02/17/2024 7:35 AM EDT Anesthesia Event Main Operating Room [facility] [place] [phone] Roman York MD [facility] [place] [address] Anesthesia Record Procedure Summary Procedure Name Responsible [...] by Sadiq Woo RN PIV 02/17/24; 0715; [id number] catheter system; 18 gauge; cephalic vein (lateral [...] = 0.6 oz pur e alcohol) rare [facility] Utilities Answer Date Recorded In the past 12 months has th e electric, gas, oil, or water [employer] threatened to shut off services in your [...] Procedure Summary Date: 02/17/24 Room / Location: [facility] OR [address] [place] [address] MAIN OR Anesthesia Start: 734 Anesthesia Stop: [...] device data. Patient Location: [facility] Level of Consciousness: Sedated (Pharmacologic/Intentional) Pain Management: [...] 08/14/2023 ??? Nevus of face 09/26/2023 Right worship No past surgical history on file. Social [...] mg documented in this encounter Care Teams Supervisor Order Takers Relationship Specialty Start Date End Date Vanessa Christian APRN PCP - General Family Medicine 10/21/23 05/26/24 documented as of this encounter
--- OUTSIDE RECORDS SUMMARY | 2024-08-11 10:04 | XMS_ITS | Encounter Summary ---
[place] [address] Care Team Providers Care Copy Room Technician Name Role Phone Vanessa Christian MAURI Primary Care Provider [phone] Reason for Visit * Auth/Cert (Routine) Specialty [...] 5.9) Rima Dickinson MD [facility] [address] [facility] Referral ID Status Reason Start Date Expiration Date Visits Re quested Visits Authorized [id number] 1 1 Encounter Details Date Type Department Care Team (Late st Contact Info) Description 02/03/2024 10:00 AM EDT - 02/03/2024 11:00 AM EDT Surgery [place] [address] Saira Lua MD CARDIAC CATHETERIZATION Social History [...] lbs Follow-up Visits Follow up with your nuclear licensing engineer in 2-4 weeks Access Site 'Black and Blue' and tenderness is expected during the first week Call if you noted a mass (lump) greater than the size of a ellis Call Office with any Questions and if you have any of the following Clarence Lane M.D Interventional Steam Room Attendant Electromechanical Engineer #: [phone] * Attachments The following attachments cannot be sent through Care Everywhere. * CAD (Coronary Artery Disease): General Info (Spanish) * Coronary Angiogram: Post-op (Spanish) documented in this encounter Medications at Time [...] Pre-Procedure H&P Update: Cardiac Catheterization Karlos Anthony [id number] 1960 Chief Complaint: Aortic stenosis HPI: Mr. [...] is inthe chart Clarence Lane MD Interventional Steam Room Attendant 02/03/24 11:48 AM documented in this encounter Miscellaneous Notes * Brief Op Note - Clarence Lane MD - 02/03/2024 12:51 PM EDT Preliminary Cardiac Catheterization Procedure Note: Patient Name: Karlos Anthony : [id number] MR#: [id number] Case Date: 02/03/2024 Electromechanical Engineer: Surgeon(s) and Role: * Saira Lua MD [...] ? Procedure Date: 02/03/2024 ? A #: [id number] ? Primary Physician: Mogadam, Emad ? Case #: [id number] ? File Name: [id number] ? Catheterization Order Number: [id number] ? [facility] ?Supervisor [facility] ? Final Report [place], [place] ? Patient Name: ? Karlos Patenaude ? ID#: ?[id number] ? : ?1960 ? Procedure Date: ? [...] Karlos Anthony Procedure Date: 02/03/2024 A #: [id number] Primary Physician: Saira Lua Case #: [id number] File Name: [id number] Catheterization Order Number: [id number] [facility] FinalReport [place], [place] Patient Name: Karlos Anthony ID#:[id number] :1960 Procedure Date: February 03, 2024 Case [...] was designated as ASA Class III. The [facility] clinical frailty scale is 3: Managing [...] (Bezet) 372 ms MUSE SYSTEM Calculated P [place] 59 degrees MUSE SYSTEM Calculated R [place] 34 degrees MUSE SYSTEM Calculated T [place] 63 degrees MUSE SYSTEM INTERPRETATION Sinus bradycardia [...] MD) documented in this encounter Care Teams Copy Room Technician Relationship Specialty Start Date End Date Vanessa Christian APRN PCP - General Family Medicine 10/21/23 05/26/24 documented as of this encounter
--- OUTSIDE RECORDS SUMMARY | 2024-08-11 10:05 | XMS_ITS | Data Portability ---
Author Organization [place] - [facility] Address [address] [place] [address] Care Team Providers Care Nurse Auditor Name Role Phone APARNA JORDAN Primary Care Provider [phone] SOFIA MCALLISTER Dentist Assessment No assessment recorded. Plan of Treatment Reminders Order Date Submit Date Provider Last Modified By Organization Details Last Modified Time Details Appointments None recorded . Lab magnesiu m, serum or plasma 024 12/18/19 24 [facility] (Registration ), [address] [place] [address] [place], [address], 4 14:25:25 BMP, serum or plasma 024 12/18/19 24 [email or web address] [facility] (Registration ), [address] [place] [address] [place], [address], 4 14:25:24 Referral None recorded . Procedures None recorded . Surgeries None recorded . Imaging None recorded . Medication Orders None recorded . Patient TargetsNo targets recorded. Patient Instructions Encounter Date Encounter Id Patient Instructions Last Modified By Organization Details Last Modified Time 09/19/2023 [id number] SCHEDULE FOLLOW UP IN 3 MONTHS IF YOU DONT HEAR FROM THE CARDIOLOGY DEPT THIS WEEK CALL [facility] TENDER AND LET THEM KNOW IF YOUR BREATHING GETS WORSE- GO TO THE ER, DONT OVER DO THINGS PHYSICALLY EXPECT A CALL FROM SARA ZAFAR RE: UPDATING YOUR POWER OF DEAF/HARD OF HEARING SPECIALIST (NEED 2 WITNESSED SIGNATURES) Not available 09/19/2023 09:25:07 12/18/2023 [id number] Karlos: expect a call from the STructural heart team at [facility] drink at least [...] 9.3 mg/dL 8.5-10 .1 normal Not Available [address] [place], [address] 12/18/2023 17:09:55 12/18/19 24 12/18/2023 LASIC METAB OLIC PANEL glucose 90 mg/dL 74-106 normal Not Available Baljit montemayor [address] [place], [address] 12/18/2023 17:09:55 12/18/19 24 12/18/2023 LASIC METAB OLIC PANEL BUN 14 mg/dL 7-18 normal Not Available Baljit montemayor [address] [place], [address] 12/18/2023 17:09:55 12/18/19 24 12/18/2023 LASIC METAB OLIC PANEL creatinine 1.0 mg/dL 0.70-1 .30 normal Not Available [address] [place], [address] 12/18/2023 17:09:55 12/18/19 24 12/18/2023 LASIC METAB [...] young er-ag ed adult s. Not Available [address] [place], [address] 12/18/2023 17:09:55 12/18/19 24 12/18/2023 LASIC METAB OLIC PANEL sodium 139 mmol/ L 136-14 5 normal Not Available [address] [place], [address] 12/18/2023 17:09:55 12/18/19 24 12/18/2023 LASIC METAB OLIC PANEL potassium 4.9 mmol/ L 3.5-5. 1 normal Not Available [address] [place], [address] 12/18/2023 17:09:55 12/18/19 24 12/18/2023 LASIC METAB OLIC PANEL chloride 104 mmol/ L 98-107 normal Not Available [address] [place], [address] 12/18/2023 17:09:55 12/18/19 24 12/18/2023 LASIC METAB OLIC PANEL CO2 30.9 mmol/ L 21.0-3 2.0 normal Not Available [address] [place], [address] 12/18/2023 17:09:55 12/18/19 24 12/18/2023 LASIC METAB OLIC PANEL anion gap 4.1 mmol/ L 3-11 normal Not Available [address] [place], [address] 12/18/2023 17:09:55 12/18/19 24 12/18/2023 MAGNE SIUM magnesium 1.8 mg/dL 1.8-2. 4 normal Not Available [address] [place], [address] 12/18/2023 17:09:56 07/27/20 24 07/27/2024 LIPID 2 cholesterol 131 mg/dL <200 Not Available [address] [place], [address] 07/27/2024 11:59:38 07/27/20 24 07/27/2024 LIPID 2 triglyceride 162 mg/dL <150 high Not Available [address] [place], [address] 07/27/2024 11:59:38 07/27/2007/27/2024 LIPID 2 HDL cholesterol 35 mg/dL 40-60 low Not Available Dominique blackburn [address] [place], [address] 07/27/2024 11:59:38 07/27/2007/27/2024 LIPID 2 calculated LDL [...] 18 years or older . Not Available [address] [place], [address] 07/27/2024 11:59:38 07/27/2007/27/2024 COMPR EHENS MADYSON METAB OLIC PANEL calcium 9.2 mg/dL 8.5-10 .1 normal Not Available [address] [place], [address] 07/27/2024 11:59:38 07/27/2007/27/2024 COMPR EHENS MADYSON METAB OLIC PANEL glucose 83 mg/dL 74-106 normal Not Available Baljit montemayor [address] [place], [address] 07/27/2024 11:59:38 07/27/2007/27/2024 COMPR EHENS MADYSON METAB OLIC PANEL BUN 20 mg/dL 7-18 high Not Available Baljit montemayor [address] [place], [address] 07/27/2024 11:59:38 07/27/2007/27/2024 COMPR EHENS MADYSON METAB OLIC PANEL creatinine 1.0 mg/dL 0.70-1 .30 normal Not Available [address] [place], [address] 07/27/2024 11:59:38 07/27/2007/27/2024 COMPR EHENS MADYSON METAB [...] young er-ag ed adult s. Not Available [address] [place], [address] 07/27/2024 11:59:38 07/27/2007/27/2024 COMPR EHENS MADYSON METAB OLIC PANEL total protein 6.8 g/dL 6.4-8. 2 normal Not Available [address] [place], [address] 07/27/2024 11:59:38 07/27/2007/27/2024 COMPR EHENS MADYSON METAB OLIC PANEL albumin 3.5 g/dL 3.4-5. 0 normal Not Available [address] [place], [address] 07/27/2024 11:59:38 07/27/2007/27/2024 COMPR EHENS MADYSON METAB OLIC PANEL bilirubin, total 0.77 mg/dL 0.2-1. 0 normal Not Available [address] [place], [address] 07/27/2024 11:59:38 07/27/2007/27/2024 COMPR EHENS MADYSON METAB OLIC PANEL alk phos 84 U/L 46-116 normal Not Available [address] [place], [address] 07/27/2024 11:59:38 07/27/2007/27/2024 COMPR EHENS MADYSON METAB OLIC PANEL sodium 141 mmol/ L 136-14 5 normal Not Available [address] [place], [address] 07/27/2024 11:59:38 07/27/2007/27/2024 COMPR EHENS MADYSON METAB OLIC PANEL potassium 4.8 mmol/ L 3.5-5. 1 normal Not Available [address] [place], [address] 07/27/2024 11:59:38 07/27/2007/27/2024 COMPR EHENS MADYSON METAB OLIC PANEL chloride 105 mmol/ L 98-107 normal Not Available [address] [place], [address] 07/27/2024 11:59:38 07/27/2007/27/2024 COMPR EHENS MADYSON METAB OLIC PANEL CO2 30.9 mmol/ L 21.0-3 2.0 normal Not Available [address] [place], [address] 07/27/2024 11:59:38 07/27/2007/27/2024 COMPR EHENS MADYSON METAB OLIC PANEL anion gap 5.1 mmol/ L 3-11 normal Not Available [address] [place], [address] 07/27/2024 11:59:38 07/27/2007/27/2024 COMPR EHENS MADYSON METAB OLIC PANEL AST 20 U/L 15-37 normal Not Available Baljit montemayor [address] [place], [address] 07/27/2024 11:59:38 07/27/2007/27/2024 COMPR EHENS MADYSON METAB OLIC PANEL ALT 32 U/L 16-63 normal Not Available Baljit montemayor [address] [place], [address] 07/27/2024 11:59:38 07/27/2007/27/2024 CREAT INE KINAS E creatine kinase 133 U/L 39-308 normal Not Available [facility] [address] , [place], [address] 07/27/2024 11:48:30 09/11/2012/05/2022 trans -thor acic echoc ardio gram (TTE) (PROC ) No observ ation record ed. [email or web address] [facility] Xray [address] , [place], [address], 09/13/2023 09:29:52 09/11/20 23 06/01/2022 XR, hip, unila teral No observ ation record ed. [email or web address] Not Available 2022 09:29:19 09/11/2012/06/2019 , echoc ardio gram No observ ation record ed. [email or web address] [facility]- Cardiology [address] [place], [address], 09/13/2023 09:28:49 07/27/20 24 07/27/2024 x-ray imagi ng repor t Flor t Name: Kanu Hugo Unit #: [id number] Loc: DI Orderi ng Provid er: Dc Louis DO Accoun t #: [id number] Status : REG CLI Primar y Care Provid er: Danna Jordan IMAGING MANAGER Date of Exam: 07/08 10/30 Sex: M [...] Vascul ar calcif icatio n is noted elementary secretary iorly in the poplit eal artery . [...] the addres s above. Thank- you. INTERFACE [facility] [address], [place], [address] 07/27/2024 18:10:30 Result Notes None recorded. Problems Name Problem SNOMED Code Status Onset Date Resolution Date Notes Provider Name and Address Organization Details Recorded Time Gastroes ophageal reflux disease without esophagi tis 416947334 Active 2022 Problem Code: K21.9; Problem Code Type: ICD-10; Not Available [facility] 4 05:35:57 Glaucoma 33907322 Active 2022 Problem Code: H40.9; Problem Code Type: ICD-10; Not Available [facility] 4 05:35:57 Hyperlip idemia 75608226 Active 2022 Problem Code: E78.5; Problem Code Type: ICD-10; Not Available [facility] 4 05:35:57 [facility] hyperten marisol 72309642 Active 2022 Problem Code: I10; Problem Code Type: ICD-10; Not Available [facility] 4 05:35:57 Pain of left hip joint 25493482189 9100 Active 2022 Problem Code: M25.552; Problem Code Type: ICD-10; Not Available [facility] 4 05:35:57 Idiopath ic osteoart hritis 419588284 Active 2022 Problem Code: M16.12; Problem Code Type: ICD-10; Not Available [facility] 4 05:35:57 Inguinal hernia 109845604 Active 2022 Problem Code: K40.90; Problem Code Type: ICD-10; Not Available [facility] 4 05:35:57 Heart murmur 68438809 Active 2022 Problem Code: R01.1; Problem Code Type: ICD-10; Not Available [facility] 4 05:35:57 Dyspnea 580976063 Active 2022 Problem Code: R06.09; Problem Code Type: ICD-10; Not Available [facility] 4 05:35:57 Chest pain 09035256 Active 2022 Problem Code: R07.89; Problem Code Type: ICD-10; Not Available [facility] 4 05:35:57 Melanocy tic nevus 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 Active 2022 Problem Code: D22.9; Problem Code Type: ICD-10; Not Available [facility] 4 05:35:57 Aortic stenosis , non-rheu matic 833919090 Active 2022 Problem Code: I35.0; Problem Code Type: ICD-10; Not Available [facility] 4 05:35:58 Aortic stenosis , non-rheu matic 534983923 Completed 202208/14/2023 Problem Code: I35.0; Problem Code Type: ICD-10; Not Available [facility] 4 05:35:58 Indigest ion 067091465 Active 2023 GLORIA CAMP LPN null, [facility] 4 08:48:57 Coronary artery bypass grafts x 3 Active 2023 Kelly Duran RN null, [facility] 4 10:30:01 At increase d risk of atrial fibrilla tion 177169922 Active [address], [place], [address] , [facility] 4 13:52:01 Anemia 633633243 Active [address], [place], [address] , [facility] 4 13:54:39 Problem Notes None recorded. Procedures Surgical History Date Name Laterality Status Provider Name and Address Organization Details Recorded Time coronary artery bypass graft completed Hudson Reeder MA [facility] 03/04/2024 14:54:09 Imaging Results Imaging Date Name Status LastModified by Organization Details LastModified Time 12/05/2022 trans-thoracic echocardiogram (TTE) (PROC) completed [address] Xray [address] , [place], [address], 09/13/2023 09:29:52 06/01/2022 XR, hip, unilateral [place] [address] Information not available 09/13/2023 09:29:19 12/06/2019 US, echocardiogram completed [address]- Cardiology [address] [place] [address] [place], [address], 09/13/2023 09:28:49 07/27/2024 x-ray imaging report completed INTERFACE [address] [place], [address] 07/27/2024 18:10:30 Procedure Notes None recorded. Medical [...] es. Take 1 hr prior. Started by [facility]. Not Available Not [...] BY MOUTH DAILY 02/24 completed stopped by [facility] Not Available Not [...] hours by oral route as needed. active [facility] Not Available Not Available No t Available Aspirin Childrens 81 mg chewable tablet Take 1 tablet by mouth once a day active Not Available Not Available No t Available lisinopri l 5 mg tablet TAKE 1 TABLET BY MOUTH EVERY DAY 02/24 completed stopped by [facility] Not Available Not [...] day by oral route. active started by [facility] Not Available Not Available Not Available dorzolami de 2 % (PF) eye drops 1 drop both eyes bid 12/17 completed Not Available Not Available Not Available Vitals Date Recorded Body weight Body mass index (BMI) Body height Heart rate Systolic blood pressure Diastolic blood pressure Provider Name and Address Organization Details Last Updated DateTime 3 72209.7 8 g 23.7 kg/m2 167.64 cm 64 /min 110 mm[Hg] 60 mm[Hg] GLORIA CAMP LPN [facility] 3 08:48:49 Date Recorded Body height Body mass index (BMI) Body weight Heart rate Systolic blood pressure Diastolic blood pressure Provider Name and Address Organization Details Last Updated DateTime 4 167.64 cm 24.6 kg/m2 61529.4 4 g 60 /min 112 mm[Hg] 80 mm[Hg] GLORIA CAMP LPN [facility] 4 08:38:13 Date Recorded Body height Body mass index (BMI) Body weight Heart rate Oxygen saturation Oxygen saturation in Arterial blood by Pulse oximetry Systolic blood pressure Diastolic blood pressure Provider Name and Address Organization Details Last Updated DateTime 4 167.64 cm 22.6 kg/m2 51686.6 5 g 63 /min 99 % 99 % 102 mm[Hg] 54 mm[Hg] Hudson Reeder MA [facility] 4 10:27:28 Social History Question Answer Notes LastModified by Organizat ion Details LastModified Time Tobacco Smoking Status Former Smoker Hudson Reeder MA null, [place] - [facility]. 03/06/2024 10:24:50 Do You Have An Advance Directive? Yes Registered 08/15/23 Updated 01/12/24 Information not available 01/15/2024 When Did You Quit Smoking? 11-15years sincelastc igarette [email or web address] Information not available 03/06/2024 Do You Have A Medical Power Of Fringe Weaver? Yes Received 08/30/23, Scanned. Copies Sent To [facility] And Patient 09/02/23. Information not available 09/02/2023 What Was The Date Of Your Most Recent Tobacco Screening? 03/06/2024 [email or web address] Information not available 03/06/2024 What Is Your Current Pack Years? 30ormorepa [email or web address] Information not available 03/06/2024 How Much Tobacco Do You Smoke? 1 PPD [email or web address] Information not available 03/06/2024 How Many Years Have You Smoked Tobacco? 40 [email or web address] Information not available 03/06/2024 Do You Or Have You Ever Used Any Other Forms Of Tobacco Or Nicotine? No [email or web address] Information not available 03/06/2024 Sex: Male Functional [...] Recorded Time Tdap 08/26/2013 completed Not Available [facility] 05:30:17 Td(adult) unspecified formulation 11/21/2022 completed Not Available [facility] 10/18/2023 05:30:17 COVID-19, mRNA, LNP-S, PF, 100 mcg/0.5mL dose or 50 mcg/0.25mL dose 01/24/2021 completed Not Available [facility] 10/18/19 05:30:18 COVID-19, mRNA, LNP-S, PF, 100 mcg/0.5mL dose or 50 mcg/0.25mL dose 02/21/2021 completed Not Available [facility] 10/18/19 05:30:18 COVID-19, mRNA, LNP-S, PF, 100 mcg/0.5mL dose or 50 mcg/0.25mL dose 09/11/2021 completed Not Available [facility] 10/18/19 05:30:18 influenza, unspecified formulation 07/26/2021 completed Not Available [facility] 10/18/2023 05:30:18 influenza, unspecified formulation 07/26/2022 completed Not Available [facility] 10/18/2023 05:30:18 influenza, unspecified formulation 07/28/2020 completed Not Available [facility] 10/18/2023 05:30:18 influenza, unspecified formulation 08/05/2019 completed Not Available [facility] 10/18/2023 05:30:18 influenza, unspecified formulation 08/12/2018 completed Not Available [facility] 10/18/2023 05:30:18 Past Encounters Encounter ID Performer Location Encounter Start Date Encounter Closed Date Diagnosis/Indication Diagnosis SNOMED-CT Code Diagnosis ICD10 Code [id number] [address] [address] 09/19/2023 08:39:51 09/19/2023 09:17:42 Aortic valve stenosis 30221090 I35.0 Essential hypertension 78220058 I10 [id number] [address] [address] 12/18/2023 08:23:47 12/18/2023 09:29:09 Aortic stenosis, non-rheumatic 101525656 I35.0 Essential hypertension 57780592 I10 Nonulcer dyspepsia 56625 07 K30 Cramp in lower leg 57199 8009 R25.2 [id number] TATYANA LEDEZMA MD [address] [address] 03/06/2024 10:15:07 03/06/2024 11:14:28 Postoperative visit 032249973 Z48.89 Aortic rosa m nosis, non-rheumatic 366402799 I35.0 Stented co ronary artery 584804758 Z95.5 At [facility] risk of atrial fibrillation 506675487 Z91.89 Anemia 777585812 D64.9 Health Concerns Section Related Observation LastModified by Organization Detai ls LastModified Time None Recorded Concern Status LastModified by Organization Details LastModified Time None Recorded Advance Directives Directive Y: Registered 08/15/23Updated 01/12/24 Payers Encounter Date Sequence Insurance Name Policy Number Policy Alicia Covered Member ID Alicia Member ID Guarantor Name 12/18/2023 1 [facility] [id number] Karlos C Patenaude [id number] Karlos C Patenaude 03/06/2024 1 [employer] [id number] Karlos C Patenaude [id number] Karlos C Patenaude Notes Date Note Type Note Provider Name and Address Organization Details Recorded Time 09/19/2023 text/html HPI Notes: 63-year-old man here for follow-up hypertension, severe aortic stenosis., He works full-time at [employer]. He lives at home with his dog. He has not heard from [facility] cardiology? referred mid-August. He did [...] trivial to mild aortic insufficiency. Aparna lizarraga [facility]. 09/19/2023 13:31:38 12/18/2023 text/html HPI Notes: 63-year-old man here for follow-up hypertension, severe aortic stenosis., He works full-time at [employer]. He lives at home with his [...] and Ovaltine in his coffee. Aparna lizarraga, [facility]. 12/18/2023 11:43:00 03/06/2024 text/html HPI Notes: Ana Paula marlow is here today for a postop evaluation TATYANA LEDEZMA MD [address], [place], [address], [facility]. 03/08/2024 13:57:34
--- OUTSIDE RECORDS SUMMARY | 2024-08-11 10:05 | XMS_ITS | Encounter Summary ---
Author Organization [facility] [place] [address] Care Team Providers Care Epic Cadence Analyst Name Role Phone Vanessa Christian APRN Primary Care Provider [phone] Encounter Details Date Type Department Care Team (Late st Contact Info) Description 12/26/2023 Notes Only Cardiology at [address] [place] [address] Neftali Ernandez MD [facility] [place] [address] Social History Tobacco Use Types Packs/Day Years [...] on filedocumented in this encounter Care Teams Epic Cadence Analyst Relationship Specialty Start Date End Date Vanessa Christian APRN PCP - General Family Medicine 10/21/23 05/26/24 documented as of this encounter
--- OUTSIDE RECORDS SUMMARY | 2024-08-11 10:05 | XMS_ITS | Encounter Summary ---
[facility] [place] [address] Care Team Providers Care Administrative Supervisor Name Role Phone Vanessa Christian Lane DOTSON Primary Care Provider [phone] Encounter Details Date Type Department Care Team (Late st Contact Info) Description 01/09/2024 2:30 PM EDT Clinical Support Same Day at [facility] [place] [id number] Social History Tobacco Use Types Packs/Day Years [...] link for a video about [facility] cardiac surgery. Instructed to bring the booklet [...] screen performed while in the [facility]. Sent to Radiology for chest x-ray. Special medication instructions: None Procedure date: not booked. Darian documented in this encounter Plan of Treatment Not on file documented as of this encounter Visit Diagnoses Not on filedocumented in this encounter Care Teams Administrative Supervisor Relationship Specialty Start Date End Date Vanessa Christian APRN PCP - General Family Medicine 10/21/23 05/26/24 documented as of this encounter
--- OUTSIDE RECORDS SUMMARY | 2024-08-11 10:05 | XMS_ITS | Encounter Summary ---
Author Organization [facility] Address [facility] [place] [address] Care Team Providers Care Wind Project Manager Name Role Phone Vanessa Christian MAURI Primary Care Provider [phone] Reason for Visit * Consultation (Routine) - Closed Specialty Diagnoses / Procedures Referred By Contac t Referred To Contact Cardiac Surgery Diagnoses Nonrheumatic aortic valve stenosis significant - TAVR ( defers to Card Surg d/t age) Neftali Ernandez MD [facility] [place] [address] Zak Farmer MD [facility] [place] [address] Referral ID Status Reason Start Date Expiration Date V isits Requested Visits Authorized [id number] Closed Consult, Test & Treat 10/21/2023 10/20/2024 1 1 Encounter Details Date Type Department Care Team (Late st Contact Info) Description 01/09/2024 1:40 PM EDT Office Visit [place] [address] Zak Farmer MD [facility] [place] [address] Nonrheumatic aortic valve stenosis Social [...] office. Best personal regards, Zak Farmer MD [phone] In aggregate 55 minutes were spent evaluating [...] signed by: Toby Dave MD, [facility] ([phone]), at 01/09/2024 3:11 PM Narrative 01/09/2024 3:11 [...] signed by: Toby Dave MD, [facility]([phone]), at 01/09/2024 3:11 PM Zak Farmer MD IMG DX ORDERABLES * Basic Metabolic Panel (non-fasting) (01/09/2024 2:58 PM EDT) Glucose 102 65 - 199 mg/dL [facility] Comment:Diabetes: >=200 mg/d L plus symptoms Blood Urea Nitrogen 15 10 - 20 mg/dL [facility] Creatinine 0.94 0.80 - 1.50 mg/dL [facility] Sodium 137 135 - 145 mmol/L [facility] Potassium 4.5 3.5 - 5.0 mmol/L [facility] Comment: Please note: ??Patients with WBC >100,000 may have falsely elevated Potassium levels. ??For accurate Potassium quantification in these patients send serum separator tube (gold top) for subsequent determinations. ??Contact the Clinical Chemistry Laboratory if there are any questions. Chloride 103 98 - 107 mmol/L [facility] Carbon Dioxide 27 22 - 31 mmol/L [facility] Anion Gap 7 5 - 15 mmol/L [facility] Calcium 9.5 8.5 - 10.5 mg/dL [facility] Est Glomerular Filtration Rate 91 >=60 mL/min/1. 73 m?? [facility] CHEMISTRY ORDERABLE S [facility] [place] [address] * Hepatic Function Panel (01/09/2024 2:58 PM EDT) Protein, Total 6.7 6.1 - 8.0 g/dL [facility] Albumin 4.5 3.2 - 5.2 g/dL [facility] Aspartate Aminotransferase 21 0 - 39 unit/L [facility] Alanine Aminotransferase 21 0 - 55 unit/L [facility] Alkaline Phosphatase 81 40 - 130 unit/L [facility] Bilirubin, Total 0.7 0.2 - 1.3 mg/dL [facility] Bilirubin, Direct 0.2 0.0 - 0.3 mg/dL [facility] Blood 01/09/2024 2:58 PM EDT 01/09/2024 3:03 PM EDT Narrative Resulting Agency Comment Spec In Lab Zak Farmer MD CHEMISTRY ORDERABLE S Performing Organization Address [facility] Co de Phone Number [facility] [place] [address] * Prothrombin Time (01/09/2024 2:58 PM EDT) Prothrombin Time 10.6 9.4 - 12.5 sec [facility] International Normalization Ratio 0.9 [facility] Comment: An INR <2.0 indicates [...] MD HEMATOLOGY ORDERABL ES Performing Organization Address [facility] Co de Phone Number [facility] [place] [address] * Type and Screen Future Surgery, [facility] [place] [place]) (01/09/2024 2:58 PM EDT) ABORH Type O NEGATIVE [facility] Patient BB History Not Found [facility] Expires at [id number] on: 02-20-2024 [facility] Ab Screen Interp Negative [facility] Blood 01/09/2024 2:58 PM EDT 01/09/2024 2:58 PM EDT Narrative Resulting Agency Comment Spec In Lab Zak Farmer MD BLOOD BANK LAB ORDE ASH Performing Organization Address City/State/[facility] Co de Phone Number [facility] [place] [address] documented in this encounter Visit Diagnoses Diagnosis Nonrheumatic aortic valve stenosis Aortic valve disorders Nonrheumatic aortic valve stenosis Aortic valve disorders documented in this encounter Care Teams Wind Project Manager Relationship Specialty Start Date End Date Vanessa Christian, BORE MINER OPERATOR PCP - General Family Medicine 10/21/23 05/26/24 documented as of this encounter
--- OUTSIDE RECORDS SUMMARY | 2024-08-11 10:05 | XMS_ITS | Encounter Summary ---
Author Organization [facility] [place] [address] Care Team Providers Care Metal Casket Assembler Name Role Phone Vanessa Christian APRN Primary Care Provider [phone] Encounter Details Date Type Department Care Team [...] filedocumented in this encounter Care Teams Metal Casket Assembler Relationship Specialty Start Date End Date Vanessa Christian APRN PCP - General Family Medicine 10/21/23 05/26/24 documented as of this encounter
--- OUTSIDE RECORDS SUMMARY | 2024-08-11 10:05 | XMS_ITS | Encounter Summary ---
Author Organization [facility] [place] [address] Care Team Providers Care Front End Drupal Developer Name Role Phone Vanessa Christian APRN Primary Care Provider [phone] Encounter Details Date Type Department Care Team (Late st Contact Info) Description 10/21/2023 Abstract Cardiology at [address] [place] [phone] Adam Mayes RN Social History Tobacco Use [...] on filedocumented in this encounter Care Teams Front End Drupal Developer Relationship Specialty Start Date End Date Vanessa Christian APRN PCP - General Family Medicine 10/21/23 05/26/24 documented as of this encounter
--- OUTSIDE RECORDS SUMMARY | 2024-08-11 10:05 | XMS_ITS | Encounter Summary ---
Author Organization [facility] [place] [address] Care Team Providers Care Nanotechnician Name Role Phone Vanessa Christian APRN Primary Care Provider [phone] Encounter Details Date Type Department Care Team [...] on filedocumented in this encounter Care Teams Nanotechnician Relationship Specialty Start Date End Date Vanessa Christian APRN PCP - General Family Medicine 10/21/23 05/26/24 documented as of this encounter
--- OUTSIDE RECORDS SUMMARY | 2024-08-11 10:05 | XMS_ITS | Encounter Summary ---
Author Organization [facility] Address [facility] [place] [address] Care Team Providers Care Stubber Name Role Phone Vanessa Christian FINANCIAL PLANNING CONSULTANT Primary Care Provider [phone] Reason for Referral * Diagnostic Test (Routine) - Closed Specialty Diagnoses / Procedures Referred By Contac t Referred To Contact Radiology Diagnoses Nonrheumatic aortic valve stenosis Procedures CT Chest wo Contrast (Generic) Louisa Reid PA [facility] [place] [address] [facility] [place] [address] Referral ID Status Reason Start Date Expiration Date V isits Requested Visits Authorized [id number] Closed Specialty Service Requested 01/10/2024 07/11/2025 1 1 Encounter Details Date Type Department Care Team (Late st Contact Info) Description 01/09/2024 Orders [place] [address] Zak Farmer MD [facility] [place] [address] Nonrheumatic aortic valve stenosis Social History Tobacco [...] wo Contrast (Generic) (02/03/2024 7:44 AM EDT) [facility] WORKSTATION ID [id number] RAD Anatomical Region Laterality Modality Chest Computed [...] have questions please contact the health pet caregiver that requested your imaging first. ? Electronically signed by: Rogerio Wright MD, [facility] ([phone]), at 02/03/2024 10:00 AM Narrative 02/03/2024 10:00 [...] nodule along the minor fissure (series 302 [id number]) and a 8 mm right lower lobe [...] who have questions please contactthe health pet caregiver that requested your imaging first. Electronically signed by: Rogerio Wright MD, [facility]([phone]), at 02/03/2024 10:00 AM Zak Farmer MD IMG CT ORDERABLES documented in this encounter Visit Diagnoses Diagnosis Nonrheumatic aortic valve stenosis Aortic valve disorders Nonrheumatic aortic valve stenosis Aortic valve disorders documented in this encounter Care Teams Stubber Relationship Specialty Start Date End Date Vanessa Christian APRN PCP - General Family Medicine 10/21/23 05/26/24 documented as of this encounter
--- OUTSIDE RECORDS SUMMARY | 2024-08-11 10:05 | XMS_ITS | Encounter Summary ---
Author Organization [facility] Address [facility] [address] [place] [id number] Care Team Providers Care Job Order Clerk Name Role Phone Vanessa Christian MAURI Primary Care Provider [phone] Reason for Referral * Consultation (Routine) - Closed Specialty Diagnoses / Procedures Referred By Contac t Referred To Contact Cardiac Surgery Diagnoses Nonrheumatic aortic valve stenosis significant - TAVR ( defers to Card Surg d/t age) Errol Loya MD [facility] [place] [address] Zak Farmer MD [facility] [place] [address] Referral ID Status Reason Start Date Expiration Date V isits Requested Visits Authorized [id number] Closed Consult, Test & Treat 10/21/2023 10/20/2024 1 1 Reason for Visit * Reason Comments Chest Pain Shortness of Breath Aortic Stenosis Encounter Details Date Type Department Care Team (Late st Contact Info) Description 10/21/2023 1:20 PM EST Office Visit Cardiology at [address] [address] Errol Loya MD [facility] [place] [address] Nonrheumatic aortic valve stenosis Social History Tobacco [...] Problem List Diagnosis Aortic stenosis 12/2022 TTE ([facility]): VITA 0.8-0.9 cm2 (MG 28 mmHg, [...] the meantime will refer to T at [facility] for further evaluation. Logistics and preliminary review [...] the meantime will refer to T at [facility] for further evaluation. Logistics and preliminary review [...] disorders documented in this encounter Care Teams Job Order Clerk Relationship Specialty Start Date End Date Vanessa Christian APRN PCP - General Family Medicine 10/21/23 05/26/24 documented as of this encounter
--- OUTSIDE RECORDS SUMMARY | 2024-08-11 10:05 | XMS_ITS | Encounter Summary ---
[place] [address] Care Team Providers Care Leadership Intern Name Role Phone Victor M Lafleur MD Primary Care Provider [phone] Reason for Visit * Reason Onset Date Comments Referral 09/20/2023 Encounter Details Date Type Department Care Team (Late st Contact Info) Description 09/20/2023 Telephone Cardiology at [address] [address] Karen Billy, director child Social History Tobacco Use Types Packs/Day Years [...] on filedocumented in this encounter Care Teams Leadership Intern Relationship Specialty Start Date End Date Victor M Lafleur MD PCP - General 10/02/13 10/20/23 documented as of this encounter
--- OUTSIDE RECORDS SUMMARY | 2024-08-11 10:05 | XMS_ITS | Encounter Summary ---
Author Organization [facility] [place] [address] Care Team Providers Care Bus Info Consultant Name Role Phone Vanessa Christian APRN Primary Care Provider [phone] Encounter Details Date Type Department Care Team (Late st Contact Info) Description 01/10/2024 Orders [place] [phone] Lawson Napoles PA [facility] [place] [address] Screening for cardiovascular condition; Aortic valve stenosis, [...] unspecified documented in this encounter Care Teams Bus Info Consultant Relationship Specialty Start Date End Date Vanessa Christian APRN PCP - General Family Medicine 10/21/23 05/26/24 documented as of this encounter
--- OUTSIDE RECORDS SUMMARY | 2024-08-11 10:05 | XMS_ITS | Encounter Summary ---
Author Organization [facility] Address [facility] [place] [address] Care Team Providers Care Parking Enforcement Officer Name Role Phone Vanessa Christian MAURI Primary Care Provider [phone] Encounter Details Date Type Department Care Team (Latest Contact Info) Description 01/09/2024 3:02 PM EDT - 01/09/2024 11:59 PM EDT Hospital Encounter XRay at [address] [place] [place] [address] Zak Farmer MD [facility] CARDIOTHORACIC [place] [address] Nonrheumatic aortic valve stenosis Discharge Disposition: Home Social History Tobacco Use Types Packs/Day Years Used Date Smoking Tobacco: Former Cigarettes Smokeless Tobacco: Never Comments:Quit 15 + years ago Alcohol Use Standard Drinks/Week Comments Yes 0 (1 standard drink = 0.6 oz pur e alcohol) rare [facility] Inpatient Questions Answer Date Recorded [...] have questions please contact the health childcare attendant that requested your imaging first. [...] who have questions please contactthe health childcare attendant that requested your imaging first. Zak Farmer MD IMG DX ORDERABLES documented in this encounter Visit Diagnoses Diagnosis Nonrheumatic aortic valve stenosis Aortic valve disorders documented in this encounter Care Teams Parking Enforcement Officer Relationship Specialty Start Date End Date Vanessa Christian APRN PCP - General Family Medicine 10/21/23 05/26/24 documented as of this encounter
--- OUTSIDE RECORDS SUMMARY | 2024-08-11 10:05 | XMS_ITS | Encounter Summary ---
Author Organization [facility] [place] [address] Care Team Providers Care Cnc Laser Operator Name Role Phone Vanessa Christian [address]SON Primary Care Provider [phone] Encounter Details Date Type Department Care Team (Latest Contact Info) Description 01/09/2024 3:00 PM EDT Laboratory [place] [phone] Nonrheumatic aortic valve stenosis Social History Tobacco Use Types Packs/Day Years Used Date Smoking Tobacco: Former Cigarettes Smokeless Tobacco: Never Comments:Quit 15 + years ago Alcohol Use Standard Drinks/Week Comments Yes 0 (1 standard drink = 0.6 oz pur e alcohol) rare [facility] Inpatient Questions Answer Date Recorded [...] stenosis TYPE AND SCREEN, SDP (F[place], [facility] [place] [...] Recheck Status (01/09/2024 2:58 PM EDT) Pathologist [facility] Recheck Order Order Placed [facility] ABORH Type Recheck Completed [facility] Blood 01/09/2024 2:58 PM EDT 01/09/2024 3:08 PM EDT Narrative Resulting Agency Comment Spec In Lab Zak Farmer MD BLOOD BANK LAB ORDE ASH [facility] [place] [place] [address] * Differential, Automated (01/09/2024 2:58 PM EDT) Neutrophil % 70.5 % [facility] Neutrophil Absolute 4.34 1.70 - 6.10 x10(3)/[facility] Lymph % 18.9 % [facility] Lymphocytes Abs 1.2 0.9 - 3.2 x10(3)/[facility] Monocyte % 8.0 % [facility] Monocyte Abs 0.5 0.3 - 0.9 x10(3)/[facility] Eos % 1.6 % [facility] Eosinophils Abs 0.1 0.0 - 0.4 x10(3)/[facility] Basophil % 0.5 % [facility] Baso Absolute 0.0 0.0 - 0.1 x10(3)/[facility] Immature Gran % 0.50 % [facility] Comment: Immature [...] Lab Zak Farmer MD HEMATOLOGY ORDERABL ES [facility] [place] [place] [address] * Hemogram (01/09/2024 2:58 PM EDT) White Blood Cell 6.2 4.0 - 9.5 x10(3)/[facility] Red Blood Cell 5.53 4.58 - 5.54 x10(6)/[facility] Hemoglobin 16.1 13.7 - 16.5 g/dL [facility] Hematocrit 46.9 40.5 - 48.5 % [facility] Mean Cell Volume 84.8 82.9 - 93.1 fL [facility] Mean Cell Hemoglobin 29.1 27.5 - 32.1 pg [facility] Mean Cell Hemoglobin Concentration 34.3 32.0 - 35.7 g/dL [facility] Platelet 187 145 - 357 x10(3)/[facility]ORATORY RDW Standard Deviation 39.2 36.0 - 45.0 [facility] RDW coefficient of variation 12.6 11.4 - 13.8 % [facility] Mean Platelet Volume 9.5 7.6 - 12.9 [facility] NRBC% auto 0.0 % [facility] NRBC Absolute 0.000 0.000 - 0.000 x10(3)/[facility] Blood 01/09/2024 2:58 PM EDT 01/09/2024 3:03 PM EDT Narrative Resulting Agency Comment Spec In Lab Zak Farmer MD HEMATOLOGY ORDERABL ES [facility] [place] [place] [address] * Basic Metabolic Panel (non-fasting) (01/09/2024 2:58 [...] ORDERABLE S Performing Organization Address [facility] Co de Phone Number [facility] [address] * Hepatic Function Panel (01/09/2024 2:58 PM [...] ORDERABLE S Performing Organization Address [facility] Co de Phone Number [facility] [address] * Prothrombin Time (01/09/2024 2:58 PM EDT) [...] MD HEMATOLOGY ORDERABL ES Performing Organization Address City/[facility]/ZIP Co de Phone Number [facility] [address] * Type and Screen Future Surgery, [facility] [place]) (01/09/2024 2:58 PM EDT) ABORH Type O NEGATIVE [facility] Patient BB History Not Found [facility] Expires at [phone] on: 02-20-2024 [facility] Ab Screen Interp Negative [facility] Blood 01/09/2024 2:58 PM EDT 01/09/2024 2:58 PM EDT Narrative Resulting Agency Comment Spec In Lab Zak Farmer MD BLOOD BANK LAB ORDE RABLES [facility] [place] [address] documented in this encounter Visit Diagnoses Diagnosis Nonrheumatic aortic valve stenosis Aortic valve disorders documented in this encounter Care Teams Cnc Laser Operator Relationship Specialty Start Date End Date Vanessa Christian APRN PCP - General Family Medicine 1/15/24 8/20/24 documented as of this encounter
--- OUTSIDE RECORDS SUMMARY | 2024-08-11 10:05 | XMS_ITS | Encounter Summary ---
Author Organization [facility] [place] [address] Care Team Providers Care Wet Char Conveyor Tender Name Role Phone Vanessa Christian APRN Primary Care Provider [phone] Encounter Details Date Type Department Care Team (Late st Contact Info) Description 10/21/2023 Abstract Cardiology at [address] [place] [phone] Adam Mayes RN Social History Tobacco Use [...] on filedocumented in this encounter Care Teams Wet Char Conveyor Tender Relationship Specialty Start Date End Date Vanessa Christian APRN PCP - General Family Medicine 10/21/23 05/26/24 documented as of this encounter
--- OUTSIDE RECORDS SUMMARY | 2024-08-11 10:05 | XMS_ITS | Encounter Summary ---
Author Organization [place] [address] Care Team Providers Care Pressroom Supervisor Name Role Phone Victor M Lafleur MD Primary Care Provider [phone] Encounter Details Date Type Department Care Team (Late st Contact Info) Description 09/26/2023 Abstract Cardiology at [address] [address] Karen Billy, RN Nonrheumatic aortic [...] face documented in this encounter Care Teams Pressroom Supervisor Relationship Specialty Start Date End Date Victor M Lafleur MD PCP - General 10/02/13 10/20/23 documented as of this encounter
[2024-08-11 10:12] VITALS: BP 93/52; PULSE 64
[2024-08-13 10:16] VITALS: BP 105/56; PULSE 71
--- OUTSIDE RECORDS SUMMARY | 2024-08-13 10:22 | XMS_ITS | Encounter Summary ---
Author Organization [facility] Address [facility] [place] [address] Care Team Providers Care Harness Placer Name Role Phone Gino Vanessa Lane DOTSON Primary Care Provider [phone] Encounter Details Date Type Department Care Team (Late st Contact Info) Description 02/24/2024 Orders Only Cardiac Surgery [facility] [place] [address] Trudi Lester APRN [facility] [place] [address] Social History Tobacco Use Types Packs/Day Years Used Date Smoking Tobacco: Former Cigarettes Smokeless Tobacco: Never Comments:Quit 15 + years ago Alcohol Use Standard Drinks/Week Comments Yes 0 (1 standard drink = 0.6 oz pur e alcohol) rare [facility] Utilities Answer Date Recorded In the past 12 months has e [employer], gas, oil, or water [employer] threatened to shut off services in your [...] on filedocumented in this encounter Care Teams Harness Placer Relationship Specialty Start Date End Date Vanessa Christian APRN PCP - General Family Medicine 10/21/23 05/26/24 documented as of this encounter
--- OUTSIDE RECORDS SUMMARY | 2024-08-13 10:22 | XMS_ITS | Encounter Summary ---
Author Organization [facility] Address [facility] [place] [address] Care Team Providers Care Wood Finisher Apprentice Name Role Phone Vanessa Christian MAURI Primary Care Provider [phone] Encounter Details Date Type Department Care Team (Latest Contact Info) Description 03/12/2024 1:30 PM EDT - 03/12/2024 11:59 PM EDT Hospital Encounter XRay at [address] [place] [address] Coronary artery disease, unspecified vessel or lesion type, unspecified whether angina present, unspecified whether lummi or transplanted heart Discharge Disposition: Home Social History Tobacco Use Types Packs/Day Years Used Date Smoking Tobacco: Former Cigarettes Smokeless Tobacco: Never Comments:Quit 15 + years ago Alcohol Use Standard Drinks/Week Comments Yes 0 (1 standard drink = 0.6 oz pur e alcohol) rare [facility] Utilities Answer Date Recorded In the past 12 months has e [employer] gas, oil, or water [employer] threatened to shut off services in [...] type, unspecified whether angina present, unspecified whether lummi or transplanted heart documented in this encounter Results * XR Chest PA & Lateral (Generic) (03/12/2024 1:42 PM EDT) WORKSTATION ID [id number] RAD Anatomical Region Laterality Modality Chest N/A [...] eval effusions I25.10, Atherosclerotic heart disease of lummi coronary artery without angina pectoris TECHNIQUE: PA [...] eval effusions I25.10, Atherosclerotic heart disease of lummi coronary artery withoutangina pectoris TECHNIQUE: PA and [...] type, unspecified whether angina present, unspecified whether lummi or transplanted heart documented in this encounter Care Teams Wood Finisher Apprentice Relationship Specialty Start Date End Date Vanessa Christian APRN PCP - General Family Medicine 10/21/23 05/26/24 documented as of this encounter
--- OUTSIDE RECORDS SUMMARY | 2024-08-13 10:22 | XMS_ITS | Clinical Summary ---
Author Organization [facility] Address [facility] [place] [address] Care Team Providers Care Swimming Pool Cleaner Name Role Phone Vanessa Christian [address] [place] Primary Care Provider [phone] Allergies No known active allergies Medications Medication [...] meantime will refer to [facility] at [facility] [place]. Logistics and preliminary review of TONY were reviewed with patient. - Refer to SHT Hypertension 08/14/2023 Resolved Problems Problem Noted Date Diagnosed Date Resolved Date Nevus of face 09/26/2023 05/27/2024 Overview (09/26/2023): Right zoroastrian Chest pressure 08/14/2023 10/21/2023 SILVA (dyspnea on exertion) 08/14/2023 HLD (hyperlipidemia) 08/14/2023 024 Encounters Date Type Department Care Team Description 05/27/2024 11:00 AM EDT Office Visit Cardiology at [address] [place] [address] Neftali Ernandez MD ASCVD (arteriosclerotic cardiovascular disease); Nonrheumatic aortic valve stenosis 05/27/2024 Travel 05/20/2024 Travel from Last 3 Months Social History Tobacco Use Types Packs/Day Years Used Date Smoking Tobacco: Former Cigarettes Smokeless Tobacco: Never Comments:Quit 15 + years ago Alcohol Use Standard Drinks/Week Comments Yes 0 (1 standard drink = 0.6 oz pur e alcohol) rare [facility] Utilities Answer Date Recorded [...] PCV) 2024 Medical Devices Implanted Type Area Gas Processing Plant Operator Device Identifier Shelf Expiration Date Model / Serial / Lot Cable,Cut,Edg ,Blnt,Ss,3tpr ([id number]) - [id number] Implanted:Qty : 1 on 02/17/2024 by Zak Farmer MD at [facility] IMPLANTS Midline: Chest [employer] - [id number] 09/02/2028 [id number] / / [id number] Valve Coronary Aortic 23mm Tissue Trnscath [employer] Inspiris ([id number]) (Autoreq) - [id number] Implanted:Qty : 1 on 02/17/2024 by Zak Farmer MD at [facility] IMPLANTS Heart [employer] - TSAI LI 09/15/2027 [id number] 23MM / [id number] / Procedures Procedure Name Priority Date/Time Associated [...] (Bezet) 367 ms MUSE SYSTEM Calculated P [place] 12 degrees MUSE SYSTEM Calculated R [place] 27 degrees MUSE SYSTEM Calculated T [place] 62 degrees MUSE SYSTEM INTERPRETATION Sinus bradycardia with 1st degree A-V block Otherwise normal ECG When compared with ECG of 12-MAR-2024 14:35, T wave inversion no longer evident in Anterior leads Confirmed by MD Ernandez Daniel ([id number]) on 06/01/2024 8:36:17 AM MUSE SYSTEM 05/27/2024 [...] Status decision made by: Patient Care Teams Swimming Pool Cleaner Relationship Specialty Start Date End Date Vanessa Christian APRN [address] [place] [address] PCP - General Family Medicine 05/27/24
--- OUTSIDE RECORDS SUMMARY | 2024-08-13 10:22 | XMS_ITS | Referral Summary ---
Author Organization [facility] Address [address] [place] [address] Care Team Providers Care Animal Rescuer Name Role Phone Filidayna Vanessa Sherman NP Primary Care Provider [phone] Social History Tobacco Use Types Packs/Day Years Used Date Smoking Tobacco: Never Assessed Sex and Gender Information Value Date Recorded Sex Assigned at Not on file Gender Identity Not on file Sexual Orientation Not on file Plan of Treatment Not on file Care Teams Animal Rescuer Relationship Specialty Start Date End Date Vanessa Christian NP [address] [place] [address] PCP - General Family Medicine - Primary Care 10/07/23
--- OUTSIDE RECORDS SUMMARY | 2024-08-13 10:22 | XMS_ITS | Encounter Summary ---
Author Organization [facility]1983 Address [facility] [place] [address] Care Team Providers Care Roll Scale Worker Name Role Phone Vanessa Christian MAURI Primary Care Provider [phone] Encounter Details Date Type Department Care Team [...] in this encounter Care Teams Roll Scale Worker Relationship Specialty Start Date End Date Vanessa Christian APRN [address] [place] [address] PCP - General Family Medicine 05/27/24 documented as of this encounter
--- OUTSIDE RECORDS SUMMARY | 2024-08-13 10:22 | XMS_ITS | Encounter Summary ---
Author Organization [facility] Address [facility] [place] [address] Care Team Providers Care Senior Software Project Manager Name Role Phone Vanessa Christian MAURI Primary Care Provider [phone] Encounter Details Date Type Department Care Team (Late st Contact Info) Description 03/12/2024 2:40 PM EDT Office [place] [id number] Zak Farmer MD [facility] [place] [address] Coronary artery disease, unspecified vessel or lesion type, unspecified whether angina present, unspecified whether [place] or transplanted heart Social History Tobacco Use Types Packs/Day Years Used Date Smoking Tobacco: Former Cigarettes Smokeless Tobacco: Never Comments:Quit 15 + years ago Alcohol Use Standard Drinks/Week Comments Yes 0 (1 standard drink = 0.6 oz pur e alcohol) rare [facility] Utilities Answer Date Recorded In the past 12 months has e [employer], gas, oil, or water [employer] threatened to shut off services in your [...] 2:40 PM EDT To: MD Vanessa Coles, PATTERN MAKER PROGRAMER Re; Karlos Santa ( 1960) We had [...] office. Best personal regards, Zak Farmer MD [phone] documented in this encounter Plan of Treatment Not on file documented as of this encounter Procedures Procedure Name Priority Date/Time Associated Diagnosis Comments EKG 12-LEAD Routine 03/12/2024 2:35 PM EDT Coronary artery disease, unspecified vessel or lesion type, unspecified whether angina present, unspecified whether [place] or transplanted heart documented in this encounter Results * EKG 12 Lead (03/12/2024 2:35 PM EDT) Ventricular rate 59 BPM MUSE SYSTEM Atrial Rate 59 BPM MUSE SYSTEM P-R Interval 190 ms MUSE SYSTEM QRS Duration 92 ms MUSE SYSTEM Q-T Interval 406 ms MUSE SYSTEM QTC Calculated (Bezet) 401 ms MUSE SYSTEM Calculated P [place] -12 degrees MUSE SYSTEM Calculated R [place] 24 degrees MUSE SYSTEM Calculated T [place] 74 degrees MUSE SYSTEM INTERPRETATION Sinus bradycardia T wave abnormality, consider anterior ischemia Abnormal ECG When compared with ECG of 17-FEB-2024 13:24, [place] interval has decreased T wave inversion now evident in Anterior leads Confirmed by Paul Guzman ([id number]) on 03/15/2024 8:36:23 AM MUSE SYSTEM 03/12/2024 2:35 PM EDT 03/15/2024 8:36 AM EDT Zak Farmer MD ECG ORDERABLES [employer] SYSTEM documented in this encounter Visit Diagnoses Diagnosis Coronary artery disease, unspecified vessel or lesion type, unspecified whether angina present, unspecified whether [place] or transplanted heart documented in this encounter Care Teams Senior Software Project Manager Relationship Specialty Start Date End Date Vanessa Christian, MAURI PCP - General Family Medicine 10/21/23 05/26/24 documented as of this encounter
--- OUTSIDE RECORDS SUMMARY | 2024-08-13 10:22 | XMS_ITS | Clinical Summary ---
Author Organization [facility] Address [address] [place] [address] Care Team Providers Care Staffing Director Name Role Phone Vanessa Christian NP Primary Care Provider [phone] Social History Tobacco Use Types Packs/Day Years [...] COVID-19 Vaccine (2022- season) 2024 Care Teams Staffing Director Relationship Specialty Start Date End Date Vanessa Christian NP [address] [place] [phone] PCP - General Family Medicine - Primary Care 10/07/23
--- OUTSIDE RECORDS SUMMARY | 2024-08-13 10:22 | XMS_ITS | Encounter Summary ---
[place] [address] Care Team Providers Care Stone Polisher Name Role Phone Aparna Jordan MAURI Primary Care Provider [phone] Reason for Referral * Diagnostic Test (Routine) - New Request Specialty Diagnoses / Procedures Referred By Contac t Referred To Contact Cardiology Diagnoses S/P AVR Procedures Echocardiogram Transthoracic Neftali Menon PA [facility] [place] [address] [facility] [place] [address] Referral ID Status Reason Start Date Expiration Date Visits Requested Visits Authorized [id number] New Request Specialty Service Requested 02/24/2024 02/23/2025 1 1 * Consultation (Routine) - Authorized Specialty Diagnoses / Procedures Referred By Contac t Referred To Contact Cardiology Diagnoses S/P AVR Hayder Graham MD [facility] [place] [address] Cardiac Rehab, [facility] [address] [place] [address] [place] [address] Referral ID Status Reason Start Date Expiration Date Visits Requested Visits Authorized [id number] Authorized Consult, Test & Treat 02/24/2024 08/22/2024 36 36 * Home Health Care (Routine) - Authorized Specialty Diagnoses / Procedures Referred By Sixto mendoza Referred To Contact Diagnoses S/P AVR Hayder Graham MD [facility] [place] [address] Referral ID Status Reason Start Date Expiration Date Visits Requested Visits Authorized [id number] Authorized Consult, Test & Treat 02/24/2024 08/22/2024 [...] ARTERIAL GRAFT (WRVU 7.93) Hayder Graham MD [facility] [place] [address] [facility] Referral ID Status Reason Start Date Expiration Date Visits Re quested Visits Authorized [id number] 1 1 Encounter Details Date Type Department Care Team (Latest Contact Info) Description 02/17/2024 5:43 AM EDT - 02/24/2024 11:23 AM EDT Hospital Encounter Heart and Vascular Unit Level 4 [place] [address] Hayder Graham MD [facility] [place] [address] S/P AVR (Primary Dx); Aortic valve stenosis, etiology of cardiac valve disease unspecified Discharge Disposition: Home with VNA Social History Tobacco Use Types Packs/Day Years Used Date Smoking Tobacco: Former Cigarettes Smokeless Tobacco: Never Comments:Quit 15 + years ago Alcohol Use Standard Drinks/Week Comments Yes 0 (1 standard drink = 0.6 oz pur e alcohol) rare [facility] Utilities Answer Date Recorded In the [...] Patient Age: 63 y.o. Birthdate: 1960 Language: Ecuadorean Race: White Ethnicity: Not nor Admit Date: 02/17/2024 Discharge Date: 02/24/24 Attending Physician: Hayder Graham MD Follow-up Recommendations for Providers: Please continue routine management of cardiovascular risk factors including blood pressure, lipids,glucose, etc. Please note any changes to medications. Patient to follow up with PCP, Aparna Jordan APRN, in 1-2 weeks. Patient to follow up with Senior Product Marketing Manager, Neftali Ernandez MD , in 2 weeks. Patient to follow up with Cardiac Surgeon, Dr. Hayder Graham, with a chest x-ray, EKG, and Echo. Inpatient Provider Contact Information: 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 [...] insufficiency. He has glaucoma. He used to HESKA until about 15 years ago. He has [...] Hayder Graham and/or the Cardiac Surgery Physician Metallurgical Inspector Team may be reached at . [...] Please refer to the card with the [place] Heart Association Guidelines for more information. You [...] Dr. Hayder Graham. You may use a [place] Track or treadmill but avoid any pulling [...] should resume a low fat, low cholesterol, [place] Heart Association Diet. Driving: No driving until [...] while being managed by your PCP and/or Senior Product Marketing Manager. For future medication refills, please refer to your PCP and/or Senior Product Marketing Manager after your discharge from our service. Thank you REMOVE CHEST TUBE SUTURES ON OR AFTER 03/02/24 Home oxygen therapy: N/A Follow up appointments: You should follow up with your PCP, Aparna Jordan APRN, in 1-2 weeks. Our office will schedule an appointment with your Senior Product Marketing Manager, Neftali Ernandez MD , in 2 [...] Future Orders Complete By Expires Echocardiogram Transthoracic [32824 CPT(R)] 03/26/2024 09/25/2024 Process Instructions: Scheduling Instructions: Questions: Where will study be performed?: [facility] Clinics Does the patient have Congenital Heart Disease?: Does patient require sedation?: Sedation rationale: XR Chest PA & Lateral (Generic) [85465 17014 Custom] 03/26/2024 09/25/2024 Process Instructions: Scheduling Instructions: Questions: Portable exam?: Reason for exam and clinical history: s/p avr/cabg Clinical information / jerome questions for radiologist: Stat read required?: Date of injury if applicable: Requested Time: Where will study be performed?: [facility] Radiology Referral to Cardiac Rehab [ECK736 Custom] As directed Process Instructions: If no progress note charted, please enter Clinical details in comments. Scheduling Instructions: Questions: My question or request is: s/p AVR/CABG. Cardiac rehab at [facility]. Referral to Home Health [REF34 Custom] As directed Process Instructions: If no progress note charted, please enter Clinical details in comments. Scheduling Instructions: Comments: Please evaluate Karlos Garcai for admission to Home Health. [address] Phone Number: Date of : 1960 Inpatient DOCUMENTATION FOR VNA SERVICES (INCLUDING THOSE PATIENTS WITH MEDICARE COVERAGE REQUIRING HOME VNA SERVICES AND/OR HOSPICE SERVICES) PATIENT'S LOCATION: Karlos Garcia [address] [facility] [phone] Surgical Garment Assembly Supervisor's Name: self/family In discussion with the attending physician, it is certified that this patient is under their care and that they, or a Nurse Practitioner, or Physician Metallurgical Inspector who is working directly with them, [...] for services as follows: HOME HEALTH AGENCY: [facility] [address] [place] [address] RN orders: Cardiopulmonary assessment, incisional assessment, assess [...] issues please call the Cardiology Office at [phone] FOR MEDICARE ONLY: (please delete this section [...] APRN [address] / [place] [address] . All VNA agencies which cover the area of patient's residence have been reviewed, either verbally or in writing, and patient/family have chosen the home health care agency noted. Questions: Disciplines Requested: Nursing Physical Therapy Arrangements for VNA/home care: As above. Signed: NEFTALI MENON PA-C [facility] Section of Cardiac Surgery [facility] [address] FAX [phone] Date: 02/24/2024 CC: Aparna Jordan, MAURI Jordan, Aparna Sherman APRN [address] [place] [address] documented in this encounter Discharge Instructions * [...] Hayder Graham and/or the Cardiac Surgery Physician Metallurgical Inspector Team may be reached at . [...] Please refer to the card with the [place] Heart Association Guidelines for more information. You [...] Dr. Hayder Graham. You may use a [place] Track or treadmill but avoid any pulling [...] should resume a low fat, low cholesterol, [place] Heart Association Diet. Driving: No driving until [...] while being managed by your PCP and/or Senior Product Marketing Manager. For future medication refills, please refer to your PCP and/or Senior Product Marketing Manager after your discharge from our service. Thank you REMOVE CHEST TUBE SUTURES ON OR AFTER 03/02/24 Home oxygen therapy: N/A Follow up appointments: You should follow up with your PCP, Aparna Jordan APRN, in 1-2 weeks. Our office will schedule an appointment with your Senior Product Marketing Manager, Neftali Ernandez MD , in 2 [...] 0600 and on the weekends please page [phone]. * Eric Barahona PA - 02/23/2024 9:27 [...] on the weekends please page [phone]. * Tiffanie Owens PTA - 02/22/2024 2:48 [...] Pt reports his dtr is coming from [place] to stay upon d/c for 10 days. 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 He drives. He works Precautions/Special Considerations: [...] LRAD and supervision Time IN / OUT: 6607-8378 Total Time: 30 minutes; TEFx2 Tiffanie Owens Pager: [phone] Physical Therapy Inpatient Rehabilitation Department * Romeo [...] 0600 and on the weekends please page [phone]. * Kelley Hinson, JR. SYSTEMS ADMINISTRATOR - 02/21/2024 10:15 AM EDT Physical [...] Pt reports his dtr is coming from [place] to stay upon d/c for 10 days. 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 He drives. He works Precautions/Special Considerations: [...] LRAD and supervision Time IN / OUT: 9270-8417 Total Time: 25 minutes; TEF 2 Kelley Hinson PTA Pager: [phone] Physical Therapy Inpatient Rehabilitation Department * Louisa [...] 0600 and on the weekends please page [phone]. * Kelley Hinson PTA - 02/20/2024 3:32 [...] at that time Kelley Hinson PTA Pager: [phone] Physical Therapy Inpatient Rehab Department * Louisa [...] 0600 and on the weekends please page [phone]. * Maris Benavides, PT - 02/19/2024 11:22 [...] Pt reports his dtr is coming from [place] to stay upon d/c for 10 days. 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 He drives. He works. Precautions/Special Considerations: [...] outlined inthis evaluation. MARIS BENAVIDES, PT Pager: [phone] Physical Therapy Inpatient Rehabilitation Department Time IN / OUT: 8030-6837 Total Time: 38 (eval) minutes; * Antonio [...] 0600 and on the weekends please page [phone]. * Minnie Begum PA - 02/18/2024 8:25 [...] site CDI with SANJANA wrap Tubes/Lines/Drains: RIJ/PAC, [place], Jacky Ctx, L pleural CT, TPW, Delaney [...] 0600 and on the weekends please page [phone]. * Kim Ha RCP - 02/17/2024 2:25 [...] plan since last visit. Hayder Graham MD [phone] Source Note - Hayder Graham MD - [...] insufficiency. He has glaucoma. He used to HESKA until about 15 years ago. He has [...] given written informed consent. Hayder Graham MD [phone] * Hayder Graham MD - 02/17/2024 7:00 [...] given written informed consent. Hayder Graham MD [phone] documented in this encounter Miscellaneous Notes * [...] information for follow-up Home Health & Hospice, [address] [place] [address] Cardiac Rehab, [address] [place] [address] Transportation: family or friend will provide Functional status prior to admission: Independent Home Environment: Others in the home: alone. Current Living Arrangements: home/apartment/condo. Accessibility Concerns:a few steps to enter 1 floor home. Current Functional Ability: Assistive Person and Equipment DME used at home: none DME Needed at Discharge: N/A Patient is insured through: Primary Insurance: [employer] Payor: [facility] / Plan: [facility] PPO / Product Type: *No Product [...] pain managed with scheduled Tylenol. Worked with [employer]. Ambulated in the roque multiple times [...] anticipated Patient is insured through: Primary Insurance: [employer] Payor: [facility] / Plan: [facility] PPO / Product Type: *No Product type* / Secondary Insurance: N/A Last Physical Therapy Recommendation: home with home health (Str coming to stay for a week or two upon d/c) with to be determined (owns rolling walker, shower seat) Plan for discharge is: Home w/ Services Outpatient Agency/Support Group Needs: Homecare agency Home Health Services: Physical Therapy, Registered Nurse Agency Referrals: [facility]. [address] [place] [address] Transportation: family or friend will provide Barriers to discharge: Discharge planning Plan going forward: Service Care Management will continue to follow and assist with discharge planning and coordination of care as indicated. 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 (Only good for 180 days) Any patient receiving care in [place] must abide by [place] law. The hierarchy [...] steady place to sleep or slept in [facility] (including now)?: No In the past 12 months has the [employer], gas, oil, or water [employer] threatened to shut off services in your [...] [address] [facility] [address] Physical address: [address] [facility], [address] Social & Family Supports: All names listed [...] Primary Insurance: [facility] Payor: [facility] / Plan: [facility] PPO / Product Type: *No Product type* / Secondary Insurance: N/A ; Prescription Coverage: Yes Preferred Pharmacy: [id number] AT [address] [address] [place] Status: Patient is a : No Primary Care Provider confirmed: Aparna Jordan, BUILDING CONSTRUCTION ENGINEER [phone] Patient/Caregiver Goals of Treatment: dc to home Potential Needs for Transition of Care: home health care Agency Referrals: I have met with the patient to: discuss discharge planning needs. provide the [facility], Office of Care Management letter from the Medical Officer Psychiatry pertaining to rehab referrals. provide a letter describing our affiliations within the [facility] and educate about their right to choose where referrals are sent. provide a list of Home Health Agencies / Durable Medical Equipment vendors which serve their preferred geographic area. provided patient with [facility] Star Quality Rating handout. They have requested referrals to: [facility]. [address] [place] [address] Note routed to a Senior Mechanical Designer who will communicate referrals to facilities and [...] daughter, Cielo, will be coming in from [place] on 02/18, to stay with him , [...] Reina Greene RN CM, BSN, CMGT- Ext [phone] * Plan of Care - Binta Trinidad [...] Operative Note Patient Name: Karlos Garcia : [id number] MR#: [id number] Case Date: 02/17/2024 Surgeon: Surgeon(s) and Role: * Hayder Graham MD - Primary * Neftali Menon PA - Physician Metallurgical Inspector Preoperative diagnosis: CAD Postoperative diagnosis: CAD, [...] Graham MD - 02/17/2024 8:20 AM EDT [facility] Operative Note Patient Name: Karlos Garcia : [id number] MR#: [id number] Case Date: 02/17/2024 Surgeon: Surgeons and Role: * Hayder Graham MD - Primary * Neftali Menon PA - Physician Metallurgical Inspector Preoperative diagnosis: CAD Postoperative diagnosis: CAD, [...] mL Drains: Mediastinal and Left pleural Disposition: [facility] Procedure Description: The patient was [...] Aortic Valve Open W Cardiopulmonary Bypass Homogrf/Stent (92353) Yes 02/17/2024 7:28 AM EDT CAD Cabg, Artery-Vein, Two (08948) Yes 02/17/2024 7:28 AM EDT CAD Cabg, Arterial, Single (15269) Yes 02/17/2024 7:28 AM EDT CAD Endoscopy W/Video-Asst Vein Morgan, Cabg (57048) Yes 02/17/2024 7:28 AM EDT CAD POCT [...] CHEMISTRY ORDERABLE S [facility] [place] [address] * (ABNORMAL) Basic Metabolic Panel (non-fasting) (02/23/2024 [...] Carpio MD CHEMISTRY ORDERABLES Performing Organization Address City/[facility]/ZIP Co de Phone Number [facility] [place] [address] * Potassium (02/22/2024 4:30 AM EDT) [facility] Potassium 3.5 3.5 - 5.0 mmol/L [facility] [...] ORDERABLE S Performing Organization Address City/[facility]/ZIP Co de Phone Number [facility] [place] [address] * (ABNORMAL) Basic Metabolic Panel (non-fasting) (02/21/2024 [...] LABORATORY Carbon Dioxide Not Perf 22 - [facility] Comment:Add-on request. Samp [...] Carpio MD CHEMISTRY ORDERABLES Performing Organization Address City/[facility]/ZIP Co de Phone Number [facility] [place] [address] * Lactate, whole blood, send to lab ([facility]) (02/21/2024 9:45 AM EDT) [facility] Lactate WB 2.0 0.5 - 2.2 mmol/L [facility] Blood 02/21/2024 9:45 AM EDT 02/21/2024 9:52 AM EDT Narrative Resulting Agency Comment Spec In Lab Hayder Graham MD CHEMISTRY ORDERABLE S Performing Organization Address [facility] Co de Phone Number [facility] [place] [address] * (ABNORMAL) Hepatic Function Panel (02/21/2024 9:45 AM EDT) [facility] Protein, Total 5.7(L) 6.1 - [...] ORDERABLE S Performing Organization Address City/[facility]/ZIP Co de Phone Number [facility] [place] [address] * Lipase (02/21/2024 9:45 AM EDT) [facility] Lipase 56 0 - 60 unit/L [facility] Blood 02/21/2024 9:45 AM EDT 02/21/2024 9:52 AM EDT Narrative Resulting Agency Comment Spec In Lab Hayder Graham MD CHEMISTRY ORDERABLE S Performing Organization Address [facility] Co de Phone Number [facility] [place] [address] * Amylase (02/21/2024 9:45 AM EDT) Amylase 69 28 - 100 unit/L [facility] Blood 02/21/2024 9:45 AM EDT 02/21/2024 9:52 AM EDT Narrative Resulting Agency Comment Spec In Lab Hayder Graham MD CHEMISTRY ORDERABLE S Performing Organization Address [facility] Phone Number [facility] [place] [address] * Potassium (02/21/2024 3:08 AM EDT) Potassium [...] Performing Organization Address [facility] Co de Phone Number [facility] [place] [address] * XR Chest PA & Lateral (Generic) (02/20/2024 10:19 AM EDT) WORKSTATION ID [id number] DH RAD Anatomical Region Laterality Modality Chest N/A Digital Radiogra phy Impressions 02/20/2024 1:11 PM EDT Small pleural effusions. No pneumothorax Thank you for letting us participate in the care of this patient. ??If you are a health care provider and have any questions regarding this report, please contact the number below. ??For patients who have questions please contact the health career services assistant that requested your imaging first. ? Narrative 02/20/2024 1:11 PM EDT EXAMINATION: XR CHEST PA AND LATERAL (GENERIC) CLINICAL HISTORY: s/p AVR/CABGx3 TECHNIQUE: PA and lateral views of the chest COMPARISON: 02/17/2024 FINDINGS: Support devices: Interval removal of [place] catheter, endotracheal tube and mediastinal chest tubes The cardiac silhouette is stable status post median sternotomy, CABG and aortic valve replacement. There are small pleural effusions. No pneumothorax. Procedure Note Rogerio Cruz MD - 02/20/2024 EXAMINATION: XR CHEST PA AND LATERAL (GENERIC) CLINICAL HISTORY: s/p AVR/CABGx3 TECHNIQUE: PA and lateral views of the chest COMPARISON: 02/17/2024 FINDINGS: Support devices: Interval removal of [place] catheter, endotracheal tubeand mediastinal chest tubes The [...] have questions please contactthe health career services assistant that requested your imaging first. Hayder Graham MD IMG DX ORDERABLES * Scan, Peripheral Blood (02/20/2024 4:23 AM EDT) Pathologist [facility] Plat estimate Decreased [facility] RBC Morphology Normal [facility] Blood 02/20/2024 4:23 AM EDT 02/20/2024 4:42 AM EDT Narrative Resulting Agency Comment Spec In Lab Minnie FRENCH HEMATOLOGY CECILIO ALEMAN [facility] [place] [address] * (ABNORMAL) Differential, Automated (02/20/2024 4:23 AM EDT) [facility] Neutrophil % 81.7 % [facility] Neutrophil Absolute 10.37(H) 1.70 - 6.10 x10(3)/mc L [facility] Lymph % 7.4 % [facility] Lymphocytes Abs 0.9 0.9 - 3.2 x10(3)/mc L [facility] Monocyte % 9.7 % [facility] Monocyte Abs 1.2(H) 0.3 - 0.9 x10(3)/mc L [facility] Eos % 0.1 % [facility] [...] HEMATOLOGY CECILIO ALEMAN [facility] [place] [address] * (ABNORMAL) Hemogram (02/20/2024 4:23 AM EDT) [...] RDW Standard Deviation 43.5 36.0 - 45.0 [facility] RDW coefficient of variation 13.7 11.4 - 13.8 % [facility] Mean Platelet Volume 10.2 7.6 - 12.9 [facility] NRBC% auto 0.0 % [facility] NRBC Absolute 0.000 0.000 - 0.000 x10(3)/mc L [facility] Blood 02/20/2024 4:23 AM EDT 02/20/2024 4:42 AM EDT Narrative Resulting Agency Comment Spec In Lab Minnie FRENCH HEMATOLOGY CECILIO ALEMAN [facility] [place] [address] * (ABNORMAL) Basic Metabolic Panel (non-fasting) (02/20/2024 [...] Performing Organization Address [facility] Co de Phone Number [facility] [place] [address] * Potassium (02/19/2024 3:57 AM EDT) Potassium [...] Performing Organization Address [facility] Co de Phone Number [facility] [place] [address] * POCT Glucose (02/18/2024 8:24 AM EDT) Glucose, POC 157 65 - 199 mg/dL [facility] Comment: Supplemental ranges: <140 mg/dL before meals <180 mg/dL all other times of the day Blood 02/18/2024 8:24 AM EDT 02/18/2024 8:24 AM EDT Hayder Graham MD POINT OF CARE TEST ORDERABLES [facility] [place] [address] * Scan, Peripheral Blood (02/18/2024 1:40 AM EDT) Plat estimate Decreased [facility] RBC Morphology Normal [facility] Blood 02/18/2024 1:40 AM EDT 02/18/2024 1:56 AM EDT Narrative Resulting Agency Comment Spec In Lab Neftali FRENCH HEMATOLOGY ORDER OLE Performing Organization Address City/[facility]/ZIP Co de Phone Number [facility] [place] [address] * (ABNORMAL) Differential, Automated (02/18/2024 1:40 AM EDT) [facility] Neutrophil % 87.1 % [facility] Neutrophil Absolute 15.03(H) 1.70 - 6.10 x10(3)/mc L [facility] Lymph % 3.0 % [facility] Lymphocytes Abs 0.5(L) 0.9 - 3.2 x10(3)/mc L [facility] Monocyte % 9.1 % [facility] Monocyte Abs 1.6(H) 0.3 - 0.9 x10(3)/mc L [facility] Eos % 0.0 % [facility] [...] HEMATOLOGY ORDER OLE [facility] [place] [address] * (ABNORMAL) Hemogram (02/18/2024 1:40 AM EDT) White Blood Cell 17.2(H) 4.0 - 9.5 x10(3)/ L [facility] Platelet 147 145 - 357 x10(3)/ L [facility] HEMATOLOGY ORDER OLE [facility] [place] [address] * (ABNORMAL) Basic Metabolic Panel (non-fasting) (02/18/2024 [...] ORDERABLE S Performing Organization Address City/[facility]/ZIP Co de Phone Number [facility] [place] [address] * (ABNORMAL) Troponin (02/18/2024 1:40 AM EDT) Pathologist [facility] Troponin-T, High Sensitivity 342(H) <=22 ng/L [facility] [...] value can be found in the [facility] Laboratory Test Catalog Troponin - [facility] Laboratory Test Catalog Reference: Fourth [place] Definition of Myocardial Infarction. Journal of the [place] [employer] 2018;72:9410-0260 Blood 02/18/2024 1:40 AM EDT 02/18/2024 1:56 AM EDT Narrative Resulting Agency Comment Spec In Lab Hayder Graham MD CHEMISTRY ORDERABLE S Performing Organization Address City/[facility]/ZIP Co de Phone Number [facility] [place] [address] * POCT Glucose (02/17/2024 8:13 PM EDT) Glucose, POC 142 65 - 199 mg/dL [facility] Comment: Supplemental ranges: <140 mg/dL before meals <180 mg/dL all other times of the day Blood 02/17/2024 8:13 PM EDT 02/17/2024 8:13 PM EDT Hayder Graham MD POINT OF CARE TEST ORDERABLES Performing Organization Address City/[facility]/ZIP Co de Phone Number [facility] [place] [address] * POCT Glucose (02/17/2024 5:42 PM EDT) Glucose, POC 160 65 - 199 mg/dL [facility] Comment: Supplemental ranges: <140 mg/dL before meals <180 mg/dL all other times of the day Blood 02/17/2024 5:42 PM EDT 02/17/2024 5:42 PM EDT Hayder Graham MD POINT OF CARE TEST ORDERABLES Performing Organization Address City/[facility]/ZIP Co de Phone Number [facility] [place] [address] * Hemoglobin (02/17/2024 5:42 PM EDT) Hemoglobin 13.7 13.7 - 16.5 g/dL [facility] Blood 02/17/2024 5:42 PM EDT 02/17/2024 6:10 PM EDT Narrative Resulting Agency Comment Spec In Lab Hayder Graham MD HEMATOLOGY ORDERABL ES [facility] [place] [address] * Potassium (02/17/2024 5:42 PM EDT) Potassium [...] MD CHEMISTRY ORDERABLE S Performing Organization Address City/State/[facility] Co de Phone Number [facility] [place] [address] * (ABNORMAL) BLOOD GAS 2 ARTERIAL (02/17/2024 [...] [facility] FIO2 Art 40 % [facility] PF Ratio Art 195 [facility] Blood 02/17/2024 4:18 PM EDT 02/17/2024 4:18 PM EDT Hayder Graham MD POINT OF CARE TEST ORDERABLES [facility] [place] [id number] * XR Chest One View (02/17/2024 1:44 PM EDT) [employer] WORKSTATION ID [id number] DH RAD Anatomical Region Laterality Modality Chest N/A Digital Radiogra phy Impressions 02/17/2024 2:12 PM EDT 1. ??No definite pleural fluid collection or pneumothorax. 2. ??Right IJ [place]a catheter tip terminates in a descending branch [...] questions please contact the health career services assistant that requested your imaging first. ? Electronically signed by: Denzel Hankins MD, [facility] ??([phone]), at 02/17/2024 2:12 PM Narrative 02/17/2024 2:12 PM EDT EXAMINATION: XR CHEST ONE VIEW CLINICAL HISTORY: s/p avr/cabg eval effusions TECHNIQUE: 1 view of the chest COMPARISON: Chest x-ray 01/09/2024, chest CT 02/03/2024 FINDINGS: ET tube tip terminates 5.2 cm above the carlos. Right IJ [place]ail[place] catheter tip terminates in a descending branch [...] 5.2 cm above the carlos. Right IJ [place]-Ganzcatheter tip terminates in a descending branch of [...] fluid collection or pneumothorax. 2. Right IJ [place] catheter tip terminates in a descending branch ofthe right pulmonary artery. Suggest catheter retraction. 3. Additional support lines and tubes as above. Thank you for letting us participate in the care of this patient. If youare a health care provider and have any questions regarding this report,please contact the number below. For patients who have questions please contactthe health career services assistant that requested your imaging first. Hayder Graham [...] [facility]ICAL [facility] FIO2 Art 100 % [facility] PF Ratio Art 320 [facility] Blood 02/17/2024 1:31 PM EDT 02/17/2024 1:31 PM EDT Hayder Graham MD POINT OF CARE TEST ORDERABLES Performing Organization Address City/[facility]/ZIP Co de Phone Number [facility] [place] [address] * (ABNORMAL) Coox2 (02/17/2024 1:21 PM EDT) [...] TEST ORDERABLES Performing Organization Address City/[facility] Co de Phone Number [facility] [place] [address] * (ABNORMAL) BLOOD GAS 2 ARTERIAL (02/17/2024 [...] Performing Organization Address [facility] Co de Phone Number [facility] [place] [address] * (ABNORMAL) Fibrinogen (02/17/2024 12:10 PM EDT) [...] Performing Organization Address [facility] Co de Phone Number [facility] [place] [address] * (ABNORMAL) Thrombin time (02/17/2024 12:10 PM [...] Performing Organization Address [facility] de Phone Number [facility] [place] [address] * APTT (02/17/2024 12:10 PM EDT) Partial [...] S Performing Organization Address [facility] de Phone Number [facility] [place] [address] * (ABNORMAL) Prothrombin Time (02/17/2024 12:10 PM [...] HEMATOLOGY ORDERABLE S [facility] [place] [address] * (ABNORMAL) Hemogram (02/17/2024 12:10 PM EDT) [...] RDW Standard Deviation 40.2 36.0 - 45.0 [facility] LABORATORY [...] HEMATOLOGY ORDERABLE S [facility] [place] [address] * (ABNORMAL) BLOOD GAS 2 ARTERIAL (02/17/2024 [...] [facility] Comment: Noted by aircraft instrument mechanic. Please note: Patients with WBC [...] CARE TEST ORDERABLES [facility] [place] [address] * (ABNORMAL) BLOOD GAS 2 ARTERIAL (02/17/2024 [...] [facility] Comment: Noted by aircraft instrument mechanic. Please note: Patients with WBC [...] Performing Organization Address [facility] Co de Phone Number [facility] [place] [address] * (ABNORMAL) Hemoglobin and Hematocrit, blood (02/17/2024 [...] Performing Organization Address [facility]/ZIP Co de Phone Number [facility] [place] [address] * (ABNORMAL) Platelet count (02/17/2024 11:04 AM EDT) Platelet 106(L) 145 - 357 x10(3)/mc L [facility] Immature Plt % 1.6 0.0 - 7.4 % [facility] Comment: Limitation of the Immature Platelet Fraction (IPF)-May be less reliable when the platelet count is less than 44r625/uL due to statistical imprecision. The IPF value [...] in a decreased state of production. References: [employer] The Clinical Value of the Immature Platelet Fraction (IPF) in Cell Recovery Document Number [id number] 03/2011 [employer] The Role of the Immature Platelet Fraction (IPF) in the Differential Diagnosis of Thrombocytopenia, Document [id number] V002/15/14 P002/17 Blood 02/17/2024 11:0 4 AM EDT 02/17/2024 11:12 AM EDT Narrative Resulting Agency Comment Spec In Lab Hayder Graham MD HEMATOLOGY ORDERABL ES Performing Organization Address [facility] Co de Phone Number [facility] [place] [address] * (ABNORMAL) Fibrinogen (02/17/2024 11:04 AM EDT) [...] ORDERABL ES [facility] [place] [address] * (ABNORMAL) BLOOD GAS 2 ARTERIAL (02/17/2024 [...] CARE TEST ORDERABLES [facility] [place] [address] * (ABNORMAL) BLOOD GAS 2 ARTERIAL (02/17/2024 [...] CARE TEST ORDERABLES [facility] [place] [address] * Surgical Pathology Report (02/17/2024 10:01 AM EDT) Final Diagnosis [id number] ? Location: [facility]; [facility]; The signing pathologist has (i) examined the relevant preparation(s) for the specimen(s) and (ii) rendered or confirmed the diagnosis(es). . ?Surgical Pathology DIAGNOSIS Aortic valve leaflets, excision: Valve leaflets with myxoid degeneration, nodular fibrosis and dystrophic calcifications. Electronically signed by: ?Livier Montoya MD Verified: ??02/24/2024 13:49 ??Pathologist Performed at: ??-[facility] Dept. of Pathology, [place] [address] Medical Officer Psychiatry: Job Brewer MD, AP, ??IA Certificate: [id number] SPECIMEN(S) SUBMITTED A - Aortic Valve Leaflets, [...] Sections Processing Blocks submitted for decalcification: A1. Rag Willow Operator sections in 1 cassette labeled A1. ??ajw 02/24/2024 1:49 PM EDT [facility] AORTIC STRUCTURE / Unknown 02/17/2024 10:01 AM EDT 02/17/2024 10:01 AM EDT Hayder Graham MD PATHOLOGY/[place] [address] * Specimen to Pathology (02/17/2024 10:01 AM EDT) AP Specimen 02/17/2024 10:0 1 AM EDT 02/17/2024 10:01 AM EDT Narrative [facility] - 02/17/2024 10:01 AM EDT Specimen requisition ordered. ??Separate Pathology report to follow Hayder Graham MD PATHOLOGY/CYTOLOGY ORDERABLES [facility] [place] [address] * (ABNORMAL) BLOOD GAS 2 ARTERIAL (02/17/2024 [...] CARE TEST ORDERABLES [facility] [place] [address] * (ABNORMAL) BLOOD GAS 2 VENOUS (02/17/2024 9:34 AM EDT) pH, Venous 7.22(Criti marquez) 7.32 - 7.42 [facility] Comment:Noted by aircraft instrument mechanic. PCO2, Venous 43 41 - 51 mmHg [facility] Comment:Noted by aircraft instrument mechanic. PO2, Venous 57(H) 25 - 40 mmHg [facility] Comment:Noted by aircraft instrument mechanic. Bicarbonate, Venous 17.1 mmol/L [facility] Comment:Noted by aircraft instrument mechanic. Base Excess, Venous -10.6 mmol/L [facility] Comment:Noted by aircraft instrument mechanic. Hgb Blood Gas 11.2(L) 13.7 - 16.5 g/dL [facility] Comment:Noted by aircraft instrument mechanic. Oxyhemoglobin, Venous 86.5 % [facility] Comment:Noted by aircraft instrument mechanic. Carboxyhemoglob in, Venous 0.3 % [facility] Comment: Noted by aircraft instrument mechanic. Nonsmokers: 0.5-1.5% COHB Smokers: Variable, but usually less than 10% Toxic: 20-30% COHB Lethal: Greater than 60% COHB Methemoglobin, Venous 0.0 <=1.5 % [facility] Comment:Noted by aircraft instrument mechanic. Na Whole Blood 156(H) 135 - 145 mmol/L [facility] Comment:Noted by aircraft instrument mechanic. K Whole Blood 5.5(H) 3.5 - 5.0 mmol/L [facility] Comment: Noted by aircraft instrument mechanic. Please note: Patients with WBC >100,000 may have falsely elevated Potassium levels. Contact the Clinical Chemistry Laboratory if there are any questions. ICa Whole Blood 1.03(L) 1.15 - 1.33 mmol/L [facility] Comment: Noted by aircraft instrument mechanic. Note: ??Total bilirubin higher than 20 mg/dL may lead to falsely low ionized calcium. CL Whole Blood 100 98 - 107 mmol/L [facility] Comment:Noted by aircraft instrument mechanic. Gluc Whole Bld 132 65 - 199 mg/dL [facility] Comment: Noted by aircraft instrument mechanic. Diabetes: >=200 mg/dL plus symptoms Lactate WB 1.0 0.5 - 2.2 mmol/L [facility] Comment:Noted by aircraft instrument mechanic. Blood Gas Source Venous [facility] Blood 02/17/2024 9:34 AM EDT 02/17/2024 9:34 AM EDT Hayder Graham MD POINT OF CARE TEST ORDERABLES [facility] [place] [address] * (ABNORMAL) BLOOD GAS 2 ARTERIAL (02/17/2024 [...] Performing Organization Address [facility] Co de Phone Number [facility] [place] [address] * POCT Glucose (02/17/2024 6:38 AM EDT) Glucose, POC 98 65 - 199 mg/dL [facility] Comment: Supplemental ranges: <140 mg/dL before meals <180 mg/dL all other times of the day Blood 02/17/2024 6:38 AM EDT 02/17/2024 6:38 AM EDT Hayder Graham MD POINT OF CARE TEST ORDERABLES Performing Organization Address [facility] Co de Phone Number [facility] [place] [phone] * Transesophageal Echo/OR (02/17/2024 6:33 AM EDT) [...] complete [place]ophageal [place] pre-operative and post-operative evaluation of cardiac function [...] 6 hours upon arrival to Unit. Give SC if unable to take PO, Routine Given [...] dose on Sat02/17/24 at 1400, Until Discontinued, [place] teeth and / or gums. Scan the CHG vial in the [employer] Q-Care Oral Care Kit from floor stock. Ventilator-associated pneumonia prophylaxis For use in ICU/Critical care locations ONLY. Obtain kit from Floor Stock location. Scan CHG vial in the [employer] Q-Care Oral Care Kit, Routine Given 02/17/2024 [...] 25 mg, Oral, ONCE, 1 dose, On [facility] 02/22/24 at 1000, Routine Given 02/22/2024 10:02 AM EDT 25 mg metoprolol tartrate (Lopressor) tablet 50 mg 50 mg, Oral, EVERY 12 HOURS SCHEDULED (2 times per day), First dose (after last modification) on [facility] 02/22/24 at [...] PHENYLephrine and/or vasopressin ineffective. Call pager # [phone] if initiated. Titrate to keep systolic blood [...] warehouse selector for additional fluid orders: pager #[phone]. Rate/Dose Verify 02/18/2024 8:00 AM EDT 1 mL/hr 1 mL/hr Rate/Dose Verify 02/18/2024 6:00 AM EDT 1 mL/hr 1 mL/hr Rate/Dose Verify 02/18/2024 4:00 AM EDT 1 mL/hr 1 mL/hr sodium chloride 0.9% infusion 10-30 mL/hr, Intravenous, DAILY PRN, Starting on Sat02/17/24 at 1307, Until Sat02/18/24 at 0835, Side port TKO rate, per [facility] nursing protocol. Rate/Dose Verify 02/17/2024 8:00 [...] documented in this encounter Care Teams Stone Polisher Relationship Specialty Start Date End Date Aparna Jordan APRN PCP - General Family Medicine 10/21/23 05/26/24 documented as of this encounter
--- OUTSIDE RECORDS SUMMARY | 2024-08-13 10:22 | XMS_ITS | Encounter Summary ---
Author Organization [facility] Address [facility] [place] [address] Care Team Providers Care Careers Adviser Name Role Phone Vanessa Christian MUARI Primary Care Provider [phone] Encounter Details Date Type Department Care Team [...] on filedocumented in this encounter Care Teams Careers Adviser Relationship Specialty Start Date End Date Vanessa Christian APRN PCP - General Family Medicine 10/21/23 05/26/24 documented as of this encounter
--- OUTSIDE RECORDS SUMMARY | 2024-08-13 10:22 | XMS_ITS | Encounter Summary ---
Author Organization [facility] Address [address] [place] [address] Care Team Providers Care Actuarial Intern Name Role Phone Vanessa Christian Lane MONCADA Primary Care Provider [phone] Encounter Details Date Type Department Care Team (Late st Contact Info) Description 10/24/2023 Lab Requisition [facility] Pathology & Laboratory Medicine - [address] [address] Oscar Nichole MD [address] [place] [phone] Factitial dermatitis Social History Tobacco Use Types [...] management options, if applicable. 10/28/2023 11:24 EST [facility] Final Diagnosis A. SKIN OF SABIANISM, LEFT, SHAVE BIOPSY: - Seborrheic keratosis, pigmented. 10/28/2023 11:24 EST [facility] Attestation By the signature below, [...] patient identification (initials P, A) and left religious is a shave biopsy of an irregular [...] [facility] Performing Lab [facility] 10/28/2023 11:24 [facility] Scanned Images 10/28/2023 11:24 [facility] Tissue SPECIMEN FROM SKIN / Unknown 10/24/2023 14:30 EST 10/24/2023 22:04 EST Oscar Nichole MD PATHOLOGY ORDERABLES [facility] [address] [place] [address] documented in this encounter Visit Diagnoses Diagnosis Factitial dermatitis Dermatitis factitia (artefacta) documented in this encounter Care Teams Actuarial Intern Relationship Specialty Start Date End Date Vanessa Christian NP [address] [place] [address] PCP - General Family Medicine - Primary Care 10/07/23 documented as of this encounter
--- OUTSIDE RECORDS SUMMARY | 2024-08-13 10:22 | XMS_ITS | Encounter Summary ---
Author Organization [facility] Address [facility] [place] [address] Care Team Providers Care Hammer Mill Operator Name Role Phone Vanessa Christian MAURI Primary Care Provider [phone] Encounter Details Date Type Department Care Team [...] on filedocumented in this encounter Care Teams Hammer Mill Operator Relationship Specialty Start Date End Date Vanessa Christian APRN PCP - General Family Medicine 10/21/23 05/26/24 documented as of this encounter
--- OUTSIDE RECORDS SUMMARY | 2024-08-13 10:22 | XMS_ITS | Encounter Summary ---
Author Organization [facility] Address [facility] [place] [address] Care Team Providers Care E M Assembler Name Role Phone Vanessa Christian Lane DOTSON Primary Care Provider [phone] Reason for Visit * Reason Comments Coronary Artery Disease Aortic Stenosis Encounter Details Date Type Department Care Team (Latest Contact Info) Description 05/27/2024 11:00 AM EDT Office Visit Cardiology at [address] [phone] Neftali Ernandez MD [facility] [place] [address] ASCVD (arteriosclerotic cardiovascular disease); Nonrheumatic aortic valve stenosis Social History Tobacco Use Types Packs/Day Years Used Date Smoking Tobacco: Former Cigarettes Smokeless Tobacco: Never Comments:Quit 15 + years ago Alcohol Use Standard Drinks/Week Comments Yes 0 (1 standard drink = 0.6 oz pur e alcohol) rare [facility] Utilities Answer Date Recorded In the past 12 months has e [employer], gas, oil, or water [employer] threatened to shut off services in your [...] disorders documented in this encounter Care Teams E M Assembler Relationship Specialty Start Date End Date Vanessa Christian, MAURI [address] [place] [address] PCP - General Family Medicine 05/27/24 documented as of this encounter
--- OUTSIDE RECORDS SUMMARY | 2024-08-13 10:23 | XMS_ITS | Encounter Summary ---
[facility] Organization [facility] [place] [address] Care Team Providers Care Maintenance Helper Utility Engineer Name Role Phone Vanessa Christian Lane DTOSON Primary Care Provider [phone] Encounter Details Date Type Department Care Team (Latest Contact Info) Description 01/09/2024 3:00 PM EDT [place] [id number] Nonrheumatic aortic valve stenosis Social History Tobacco Use Types Packs/Day Years Used Date Smoking Tobacco: Former Cigarettes Smokeless Tobacco: Never Comments:Quit 15 + years ago Alcohol Use Standard Drinks/Week Comments Yes 0 (1 standard drink = 0.6 oz pur e alcohol) rare [facility] Inpatient Questions Answer Date Recorded [...] stenosis TYPE AND SCREEN, SDP (FUTURE SURGERY, [facility] SAME DAY PROGRAM [...] [facility] ABORH Recheck Order Order Placed [facility] ABORH Type Recheck Completed [facility] Blood 01/09/2024 2:58 PM EDT 01/09/2024 3:08 PM EDT Narrative Resulting Agency Comment Spec In Lab Zak Farmer MD BLOOD BANK LAB ORDE ASH [facility] [place] [address] * Differential, Automated (01/09/2024 2:58 PM EDT) Neutrophil % 70.5 % [facility] Neutrophil Absolute 4.34 1.70 - 6.10 x10(3)/[facility] Lymph % 18.9 % [facility] Lymphocytes Abs 1.2 0.9 - 3.2 x10(3)/[facility] Monocyte % 8.0 % [facility] Monocyte Abs 0.5 0.3 - 0.9 x10(3)/[facility] Eos % 1.6 % [facility] Eosinophils Abs 0.1 0.0 - 0.4 x10(3)/[facility] Basophil % 0.5 % [facility] Baso Absolute 0.0 0.0 - 0.1 x10(3)/[facility] Immature Gran % 0.50 % [facility] Comment: Immature granulocytes(IG's)percentage and absolute count will include metamyelocytes, myelocytes, and promyelocytes. Blood smears from CBCs yielding IG's will be scanned manually for concordance. If this scan disagrees with the automated IG or if promyelocytes are noted, a manual differential will be performed. Immature Gran Absolute 0.03 0.00 - 0.04 x10(3)/[facility] Blood 01/09/2024 2:58 PM EDT 01/09/2024 3:03 PM EDT Narrative Resulting Agency Comment Spec In Lab Zak Farmer MD HEMATOLOGY ORDERABL ES [facility] [place] [address] * Hemogram (01/09/2024 2:58 PM EDT) White Blood Cell 6.2 4.0 - 9.5 x10(3)/[facility] Red Blood Cell 5.53 4.58 - 5.54 x10(6)/[facility] Hemoglobin 16.1 13.7 - 16.5 [...] CENTER LABORATORY Platelet 187 145 - 357 x10(3)/[facility] RDW Standard Deviation 39.2 36.0 - 45.0 [facility] RDW coefficient of variation 12.6 11.4 - 13.8 % [facility] Mean Platelet Volume 9.5 7.6 - 12.9 [facility] NRBC% auto 0.0 % [facility] NRBC Absolute 0.000 0.000 - 0.000 x10(3)/[facility] Blood 01/09/2024 2:58 PM EDT 01/09/2024 3:03 PM EDT Narrative Resulting Agency Comment Spec In Lab Zak Farmer MD HEMATOLOGY ORDERABL ES [facility] [place] [address] * Basic Metabolic Panel (non-fasting) (01/09/2024 2:58 [...] ORDERABLE S Performing Organization Address [facility] Co de Phone Number [facility] [place] [address] * Hepatic Function Panel (01/09/2024 2:58 PM [...] ORDERABLE S Performing Organization Address [facility] Co de Phone Number [facility] [place] [address] * Prothrombin Time (01/09/2024 2:58 PM EDT) [...] MD HEMATOLOGY ORDERABL ES Performing Organization Address City/[facility]/ZIP Co de Phone Number [facility] [place] [address] * Type and Screen Future Surgery, [facility] SAME DAY PROGRAM [...] LAB ORDE RABLES [facility] [place] [address] documented in this encounter Visit Diagnoses Diagnosis Nonrheumatic aortic valve stenosis Aortic valve disorders documented in this encounter Care Teams Maintenance Helper Utility Engineer Relationship Specialty Start Date End Date Vanessa Christian APRN PCP - General Family Medicine 1/15/24 8/20/24 documented as of this encounter
--- OUTSIDE RECORDS SUMMARY | 2024-08-13 10:23 | XMS_ITS | Encounter Summary ---
Author Organization [facility] [place] [address] Care Team Providers Care Fluorescent Solution Mixer Name Role Phone Vanessa Christian MAURI Primary Care Provider [phone] Reason for Referral * Diagnostic Test (Routine) - Closed Specialty Diagnoses / Procedures Referred By Contac t Referred To Contact Radiology Diagnoses Nonrheumatic aortic valve stenosis Procedures CT Chest wo Contrast (Generic) Louisa Reid PA [facility] CARDIOTHORAC[place] [address] [facility] [place] [address] Referral ID Status Reason Start Date Expiration Date V isits Requested Visits Authorized [id number] Closed Specialty Service Requested 01/10/2024 07/11/2025 1 1 Encounter Details Date Type Department Care Team (Late st Contact Info) Description 01/09/2024 Orders [place] [address] Zak Farmer MD [facility] CARDI[facility]AC[facility] [place] [address] Nonrheumatic aortic valve stenosis Social History Tobacco [...] wo Contrast (Generic) (02/03/2024 7:44 AM EDT) Monitor WORKSTATION ID [id number] RAD Anatomical Region Laterality Modality Chest Computed [...] who have questions please contact the health chronic care nurse that requested your imaging first. ? Electronically signed by: Rogerio Wright MD, [facility] ([phone]), at 02/03/2024 10:00 AM Narrative 02/03/2024 10:00 [...] nodule along the minor fissure (series 302 [id number]) and a 8 mm right lower lobe [...] patients who have questions please contactthe health chronic care nurse that requested your imaging first. Electronically signed by: Rogerio Wright MD, [facility]([phone]), at 02/03/2024 10:00 AM Zak Farmer MD IMG CT ORDERABLES documented in this encounter Visit Diagnoses Diagnosis Nonrheumatic aortic valve stenosis Aortic valve disorders Nonrheumatic aortic valve stenosis Aortic valve disorders documented in this encounter Care Teams Fluorescent Solution Mixer Relationship Specialty Start Date End Date Vanessa Christian APRN PCP - General Family Medicine 10/21/23 05/26/24 documented as of this encounter
--- OUTSIDE RECORDS SUMMARY | 2024-08-13 10:23 | XMS_ITS | Encounter Summary ---
Author Organization [facility] [place] [address] Care Team Providers Care Social Work Therapist Name Role Phone Vanessa Christian Lane DOTSON Primary Care Provider [phone] Encounter Details Date Type Department Care Team (Late st Contact Info) Description 01/09/2024 2:30 PM EDT Clinical Support Same Day at [facility] [place] [phone] Social History Tobacco Use Types Packs/Day Years [...] type and screen performed while in the [facility]. Sent to Radiology for chest x-ray. Special medication instructions: None Procedure date: not booked. Darian documented in this encounter Plan of Treatment Not on file documented as of this encounter Visit Diagnoses Not on filedocumented in this encounter Care Teams Social Work Therapist Relationship Specialty Start Date End Date Vanessa Christian APRN PCP - General Family Medicine 10/21/23 05/26/24 documented as of this encounter
--- OUTSIDE RECORDS SUMMARY | 2024-08-13 10:23 | XMS_ITS | Encounter Summary ---
Author Organization [facility] Address [facility] [place] [address] Care Team Providers Care Commercial Collector Name Role Phone Vanessa Christian MAURI Primary Care Provider [phone] Encounter Details Date Type Department Care Team (Latest Contact Info) Description 01/09/2024 3:02 PM EDT - 01/09/2024 11:59 PM EDT Hospital Encounter XRay at [address] [place] [address] Zak Farmer MD [facility] [place] [address] Nonrheumatic aortic valve stenosis Discharge Disposition: Home [...] have questions please contact the health rn medicare that requested your imaging first. ? [...] who have questions please contactthe health rn medicare that requested your imaging first. Zak Farmer MD IMG DX ORDERABLES documented in this encounter Visit Diagnoses Diagnosis Nonrheumatic aortic valve stenosis Aortic valve disorders documented in this encounter Care Teams Commercial Collector Relationship Specialty Start Date End Date Vanessa Christian APRN PCP - General Family Medicine 10/21/23 05/26/24 documented as of this encounter
--- OUTSIDE RECORDS SUMMARY | 2024-08-13 10:23 | XMS_ITS | Encounter Summary ---
[place] [address] Care Team Providers Care Dioramist Name Role Phone Vanessa Christian MAURI Primary Care Provider [phone] Reason for Visit * Auth/Cert (Routine) Specialty [...] Rima Dickinson MD [facility] [place] [address] [facility] Referral ID Status Reason Start Date Expiration Date Visits Re quested Visits Authorized [id number] 1 1 Encounter Details Date Type Department Care Team (Late st Contact Info) Description 02/03/2024 10:00 AM EDT - 02/03/2024 11:00 AM EDT Surgery [place] [address] Saira Lua MD CARDIAC CATHETERIZATION Social History [...] lbs Follow-up Visits Follow up with your environmental property assessor in 2-4 weeks Access Site 'Black and Blue' and tenderness is expected during the first week Call if you noted a mass (lump) greater than the size of a ellis Call Office with any Questions and if you have any of the following Clarence Lane M.D Interventional Automatic Pinsetter Adjuster Level Vial Inside Grinder #: [phone] * Attachments The following attachments cannot be [...] Lane MD - 02/03/2024 11:48 AM EDT [facility] Interventional Cardiology Adult Pre-Procedure H&P Update: Cardiac Catheterization Karlos Anthony [id number] 1960 Chief Complaint: Aortic stenosis HPI: Mr. [...] inthe chart Clarence Lane MD Interventional Automatic Pinsetter Adjuster 02/03/24 11:48 AM documented in this encounter Miscellaneous Notes * Brief Op Note - Clarence Lnae MD - 02/03/2024 12:51 PM EDT Preliminary Cardiac Catheterization Procedure Note: Patient Name: Karlos Anthony : [id number] MR#: [id number] Case Date: 02/03/2024 Level Vial Inside Grinder: Surgeon(s) and Role: * Saira Lua MD [...] PM EDT ?[facility] ? Cardiac Catheterization/Intervention Report ? Patient Name: Patenaude, Karlos ? Procedure Date: 02/03/2024 ? A #: [id number] ? Primary Physician: Mogadam, Emad ? Case #: [id number] ? File Name: [id number] ? Catheterization Order Number: [id number] ? [facility] ? Final Report [place], [place] ? Patient Name: ? Karlos Patenaude ? ID#: ?[id number] ? : ?1960 ? Procedure Date: ? [...] - 02/12/2024 [facility] Cardiac Catheterization/Intervention Report Patient Name: Karlos Anthony Procedure Date: 02/03/2024 A #: [id number] Primary Physician: Saira Lua Case #: [id number] File Name: [id number] Catheterization Order Number: [id number] [facility] FinalReport [place], [place] Patient Name: Karlos Anthony ID#:[id number] :1960 Procedure Date: February 03, 2024 Case [...] was designated as ASA Class III. The [facility] clinical frailty scale is 3: [...] (Bezet) 372 ms MUSE SYSTEM Calculated P [place] 59 degrees MUSE SYSTEM Calculated R [place] 34 degrees MUSE SYSTEM Calculated T [place] 63 degrees MUSE SYSTEM INTERPRETATION Sinus bradycardia [...] MD) documented in this encounter Care Teams Dioramist Relationship Specialty Start Date End Date Vanessa Christian APRN PCP - General Family Medicine 10/21/23 05/26/24 documented as of this encounter
--- OUTSIDE RECORDS SUMMARY | 2024-08-13 10:23 | XMS_ITS | Encounter Summary ---
Author Organization [facility] Address [facility] [place] [address] Care Team Providers Care Search Planner Name Role Phone Vanessa Christian MAURI Primary Care Provider [phone] Encounter Details Date Type Department Care Team (Late st Contact Info) Description 02/14/2024 Orders [place] [phone] Zak Farmer MD [facility] DR [place] [address] Coronary artery disease, unspecified vessel or lesion type, unspecified whether angina present, unspecified whether craig or transplanted heart (Primary Dx) Social History [...] (Bezet) 401 ms MUSE SYSTEM Calculated P [place] -12 degrees MUSE SYSTEM Calculated R [place] 24 degrees MUSE SYSTEM Calculated T [place] 74 degrees MUSE SYSTEM INTERPRETATION Sinus bradycardia T wave abnormality, consider anterior ischemia Abnormal ECG When compared with ECG of 17-FEB-2024 13:24, GA interval has decreased T wave inversion now evident in Anterior leads Confirmed by Paul Guzman ([id number]) on 03/15/2024 8:36:23 AM MUSE SYSTEM 03/12/2024 2:35 PM EDT 03/15/2024 8:36 AM EDT Zak Farmer MD ECG ORDERABLES MUSE SYSTEM * XR Chest PA & Lateral (Generic) (03/12/2024 1:42 PM EDT) Pathologist [facility] WORKSTATION ID [id number] [facility] Anatomical Region Laterality Modality Chest [...] questions please contact the health foster care social worker that requested your imaging first. ? Narrative 03/13/2024 8:28 AM EDT EXAMINATION: XR CHEST PA AND LATERAL (GENERIC) CLINICAL HISTORY: s/p cabg eval effusions I25.10, Atherosclerotic heart disease of craig coronary artery without angina pectoris TECHNIQUE: PA [...] eval effusions I25.10, Atherosclerotic heart disease of craig coronary artery withoutangina pectoris TECHNIQUE: PA and [...] have questions please contactthe health foster care social worker that requested your imaging first. Zak Farmer MD IMG DX ORDERABLES documented in this encounter Visit Diagnoses Diagnosis Coronary artery disease, unspecified vessel or lesion type, unspecified whether angina present, unspecified whether craig or transplanted heart- Primary Coronary artery disease, unspecified vessel or lesion type, unspecified whether angina present, unspecified whether craig or transplanted heart documented in this encounter Care Teams Search Planner Relationship Specialty Start Date End Date Vanessa Christian APRN PCP - General Family Medicine 10/21/23 05/26/24 documented as of this encounter
--- OUTSIDE RECORDS SUMMARY | 2024-08-13 10:23 | XMS_ITS | Encounter Summary ---
[facility] [place] [address] Care Team Providers Care Media Clerk Name Role Phone Aparna Jordan MAURI Primary Care Provider [phone] Reason for Visit * Auth/Cert (Routine) Specialty [...] ARTERIAL GRAFT (WRVU 7.93) Hayder Graham MD [facility] CARDIOTHORACIC [place] [address] [facility] Referral ID Status Reason Start Date Expiration Date Visits Re quested Visits Authorized [id number] 1 1 Encounter Details Date Type Department Care Team (Late st Contact Info) Description 02/17/2024 7:30 AM EDT - 02/17/2024 1:26 PM EDT [place] [id number] Hayder Graham MD [facility] CARDIOTHORACIC [place] [address] ENDOSCOPIC HARVEST VEIN(S) FOR CABG (WRVU 0.31) Social History Tobacco Use Types Packs/Day Years Used Date Smoking Tobacco: Former Cigarettes Smokeless Tobacco: Never Comments:Quit 15 + years ago Alcohol Use Standard Drinks/Week Comments Yes 0 (1 standard drink = 0.6 oz pur e alcohol) rare [facility] Utilities Answer Date Recorded In the [...] Patient Age: 63 y.o. Birthdate: 1960 Language: Grenadian Race: White Ethnicity: Not nor Admit Date: 02/17/2024 Discharge Date: 02/24/24 Attending Physician: Hayder Graham MD Follow-up Recommendations for Providers: Please continue routine management of cardiovascular risk factors including blood pressure, lipids,glucose, etc. Please note any changes to medications. Patient to follow up with PCP, Aparna Jordan APRN, in 1-2 weeks. Patient to follow up with Kiln Door Repairer, Neftali Ernandez MD , in 2 weeks. Patient to follow up with Cardiac Surgeon, Dr. Hayder Graham, with a chest x-ray, EKG, and Echo. 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 Past Surgical History: Procedure Laterality Date PRO CABG, ARTERIAL, SINGLE N/A 02/17/2024 @CABG, USING ARTERIAL GRAFT;SINGLE ARTERIAL GRAFT (WRVU 33.75) performed by Hayder Graham MD at [facility] MAIN OR PRO CABG, ARTERY-VEIN, TWO N/A 02/17/2024 @CABG, TWO VENOUS GRAFTS & ARTERIAL GRAFT (WRVU 7.93) performed by Hayder Graham MD at [facility] MAIN OR PRO ENDOSCOPY W/VIDEO-ASST VEIN HARVEST, CABG Left 02/17/2024 ENDOSCOPIC HARVEST VEIN(S) FOR CABG (WRVU 0.31) performed by Hayder Graham MD at [facility] MAIN OR PRO REPLACEMENT PROSTHETIC AORTIC VALVE OPEN W CARDIOPULMONARY BYPASS HOMOGRF/STENT N/A 02/17/2024 @REPLACE AORTIC VALVE, OPEN, W\CPB, W\PROSTHETIC VALVE (WRVU 41.32) performed by Hayder Graham MD at [facility] MAIN [...] insufficiency. He has glaucoma. He used to bac[facility]emaSource until about 15 years ago. He has undergone prior herniorrhaphy. 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 Major Procedures/Operations: 02/17/24 s/p avr/cabgx3 CABG x 3 JOSE->LAD SVG->dRCA SVG->OM1 EVH from LLE AVR with a 23 mm Inspiris Bioprosthesis Hospital Course: Karlos Garcia was admitted to [facility] on 02/17/2024 via the Same Day [...] Hayder Graham and/or the Cardiac Surgery Physician Legal Archivist Team may be reached at . Antibiotic [...] Dr. Hayder Graham. You may use a Sonoita Track or treadmill but avoid any pulling [...] friends, go to a movie, go to confucianist, etc. Heavy activities: No hunting, skiing, jogging, [...] while being managed by your PCP and/or Kiln Door Repairer. For future medication refills, please refer to your PCP and/or Kiln Door Repairer after your discharge from our service. Thank you REMOVE CHEST TUBE SUTURES ON OR AFTER 03/02/24 Home oxygen therapy: N/A Follow up appointments: You should follow up with your PCP, Aparna Jordan APRN, in 1-2 weeks. Our office will schedule an appointment with your Kiln Door Repairer, Neftali Ernandez MD , in 2 weeks. You have an appointment with your Cardiac Surgeon, Dr. Hayder Graham, 4 weeks with a chest x-ray, EKG, and Echo before your appointment. Cardiac Rehabilitation: Karlos Garcia was seen regarding participation in the outpatient Phase 2Cardiac Rehabilitation at [facility]. The patient agrees to a referral to this program. The referral will be sent at discharge and the patient should be contacted by the Program within 1- 2 weeks from discharge. Future Appointments and Orders Future Orders Complete By Expires Echocardiogram Transthoracic [26590 CPT(R)] 03/26/2024 09/25/2024 Process Instructions: Scheduling Instructions: Questions: Where will study be performed?: [facility]ics Does the patient have Congenital Heart Disease?: Does patient require sedation?: Sedation rationale: XR Chest PA & Lateral (Generic) [81331 12128 Custom] 03/26/2024 09/25/2024 Process Instructions: Scheduling Instructions: Questions: Portable exam?: Reason for exam and clinical history: s/p avr/cabg Clinical information / jerome questions for radiologist: Stat read required?: Date of injury if applicable: Requested Time: Where will study be performed?: [facility] Radiology Referral to Cardiac Rehab [[id number] Custom] As directed Process Instructions: If no progress note charted, please enter Clinical details in comments. Scheduling Instructions: Questions: My question or request is: s/p AVR/CABG. Cardiac rehab at [facility]. Referral to Home Health [REF34 Custom] As directed Process Instructions: If no progress note charted, please enter Clinical details in comments. Scheduling Instructions: Comments: Please evaluate Karlos Garcia for admission to Home Health. [address] Phone Number: Date of : 1960 Inpatient DOCUMENTATION FOR VNA SERVICES (INCLUDING THOSE PATIENTS WITH MEDICARE COVERAGE REQUIRING HOME VNA SERVICES AND/OR HOSPICE SERVICES) PATIENT'S LOCATION: Karlos Garcia [address] [facility] [phone] International Editorial Producer's Name: self/family In discussion with the attending physician, it is certified that this patient is under their care and that they, or a Nurse Practitioner, or Physician Legal Archivist who is working directly with them, hada [...] for services as follows: HOME HEALTH AGENCY: [facility] [address] [place] [phone] RN orders: Cardiopulmonary assessment, incisional assessment, assess [...] issues please call the Cardiology Office at [phone] FOR MEDICARE ONLY: (please delete this section [...] As above. Signed: NEFTALI MENON PA-C [facility] [place] of [place]iac [place] [facility] [place] [address] FAX [phone] Date: 02/24/2024 CC: Aparna Jordan, MAURI Jordan, Aparna Sherman APRN [address] [place] [address] documented in this encounter Discharge Instructions * [...] Hayder Graham and/or the Cardiac Surgery Physician Legal Archivist Team may be reached at . Antibiotic [...] Dr. Hayder Graham. You may use a Sonoita Track or treadmill but avoid any pulling [...] friends, go to a movie, go to confucianist, etc. Heavy activities: No hunting, skiing, jogging, [...] while being managed by your PCP and/or Kiln Door Repairer. For future medication refills, please refer to your PCP and/or Kiln Door Repairer after your discharge from our service. Thank you REMOVE CHEST TUBE SUTURES ON OR AFTER 03/02/24 Home oxygen therapy: N/A Follow up appointments: You should follow up with your PCP, Aparna Jordan APRN, in 1-2 weeks. Our office will schedule an appointment with your Kiln Door Repairer, Neftali Ernandez MD , in 2 weeks. You have an appointment with your Cardiac Surgeon, Dr. Hayder Graham, 4 weeks with a chest x-ray, EKG, and Echo before your appointment. Cardiac Rehabilitation: Karlos Garcia was seen regarding participation in the outpatient Phase 2Cardiac Rehabilitation at [facility]. The patient agrees to a [...] 0600 and on the weekends please page [phone]. * Eric Barahona PA - 02/23/2024 9:27 [...] 0600 and on the weekends please page [phone]. * Tiffanie Owens, STENOTYPIST - 02/22/2024 2:48 PM EDT Physical Therapy [...] Pt reports his dtr is coming from [place] to stay upon d/c for 10 days. Pt was indep STENOTYPIST. He drives. He works Precautions/Special Considerations: STERNAL [...] LRAD and supervision Time IN / OUT: 5607-3723 Total Time: 30 minutes; TEFx2 Tiffanie Owens Pager: [phone] Physical Therapy Inpatient Rehabilitation Department * Romeo [...] 0600 and on the weekends please page [phone]. * Kelley Hinson STENOTYPIST - 02/21/2024 10:15 AM EDT Physical Therapy [...] Pt reports his dtr is coming from [place] to stay upon d/c for 10 days. Pt was indep STENOTYPIST. He drives. He works Precautions/Special Considerations: STERNAL [...] LRAD and supervision Time IN / OUT: 3394-5167 Total Time: 25 minutes; TEF 2 Kelley Hinson PTA Pager: [phone] Physical Therapy Inpatient Rehabilitation Department * Louisa [...] 0600 and on the weekends please page [phone]. * Kelley Hinson PTA - 02/20/2024 3:32 [...] at that time Kelley Hinson PTA Pager: [phone] Physical Therapy Inpatient Rehab Department * Louisa [...] 0600 and on the weekends please page [phone]. * Maris Benavides, PT - 02/19/2024 11:22 [...] Pt reports his dtr is coming from [place] to stay upon d/c for 10 days. Pt was indep STENOTYPIST. He drives. He works. Precautions/Special Considerations: STERNAL [...] outlined inthis evaluation. MARIS BENAVIDES, PT Pager: [phone] Physical Therapy Inpatient Rehabilitation Department Time IN / OUT: 5133-1799 Total Time: 38 (eval) minutes; * Antonio [...] 0600 and on the weekends please page [phone]. * Minnie Begum PA - 02/18/2024 8:25 [...] 0600 and on the weekends please page [phone]. * Kim Ha RCP - 02/17/2024 2:25 [...] plan since last visit. Hayder Graham MD [phone] Source Note - Hayder Graham MD - [...] given written informed consent. Hayder Graham MD [phone] * Hayder Graham MD - 02/17/2024 7:00 [...] given written informed consent. Hayder Graham MD [phone] documented in this encounter Miscellaneous Notes * [...] information for follow-up Home Health & Hospice, [address] [place] [address] Cardiac Rehab, [address] [place] [address] Transportation: family or friend will provide Functional status prior to admission: Independent Home Environment: Others in the home: alone. Current Living Arrangements: home/apartment/condo. Accessibility Concerns:a few steps to enter 1 floor home. Current Functional Ability: Assistive Person and Equipment DME used at home: none DME Needed at Discharge: N/A Patient is insured through: Primary Insurance: [place] [employer] Payor: [facility] / Plan: [facility] PPO / Product Type: *No [...] pain managed with scheduled Tylenol. Worked with [employer]. Ambulated in the roque multiple times during [...] anticipated Patient is insured through: Primary Insurance: [facility] Payor: [facility] / Plan: [facility] PPO / Product Type: *No Product type* / Secondary Insurance: N/A Last Physical Therapy Recommendation: home with home health (Str coming to stay for a week or two upon d/c) with to be determined (owns rolling walker, shower seat) Plan for discharge is: Home w/ Services Outpatient Agency/Support Group Needs: Homecare agency Home Health Services: Physical Therapy, Registered Nurse Agency Referrals: [facility] [address] [place] [address] Transportation: family or friend will provide Barriers to discharge: Discharge planning Plan going forward: Service Care Management will continue to follow and assist with discharge planning and coordination of care as indicated. Anticipated Date of Discharge: 02/22/2024 Rhett Bell RN RN/CM - Cellphone: [phone] Pager: [phone] Covering Service RN/CM * Plan of Care [...] the outpatient Phase 2 Cardiac Rehabilitation at [facility]. 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 (Only good for 180 days) Any patient receiving care in [place] must abide by [place] law. The hierarchy [...] place to sleep or slept in [facility] (including now)?: No In the past 12 months has the [employer], gas, oil, or water [employer] threatened to shut off services in your [...] confirmed as: [address] [facility] [address] Physical address: [address] [facility], [address] Social & Family Supports: All names listed [...] Information: none noted Health/Prescription Coverage: Primary Insurance: [facility] Payor: [facility] / Plan: [facility] PPO / Product Type: *No Product type* / Secondary Insurance: N/A ; Prescription Coverage: Yes Preferred Pharmacy: [id number] [address] [place] Status: Patient is a : No Primary Care Provider confirmed: Aparna Jordan, MAURI [phone] Patient/Caregiver Goals of Treatment: dc to home Potential Needs for Transition of Care: home health care Agency Referrals: I have met with the patient to: discuss discharge planning needs. provide the [facility], Office of Care Management letter from the Pole Inspector pertaining to rehab referrals. provide a letter describing our affiliations within the [facility] and educate about their right to choose where referrals are sent. provide a list of Home Health Agencies / Durable Medical Equipment vendors which serve their preferred geographic area. provided patient with [facility] Star Quality Rating handout. They have requested referrals to: [facility] [address] [place] [address] Note routed to a Hopper Operator who will communicate referrals to facilities [...] daughter, Cielo, will be coming in from [place] on 02/18, to stay with him , [...] Reina Greene RN CM, BSN, CMGT-BC Ext [phone] * Plan of Care - Binta Trinidad [...] Operative Note Patient Name: Karlos Garcia : [id number] MR#: [id number] Case Date: 02/17/2024 Surgeon: Surgeon(s) and Role: * Hayder Graham MD - Primary * Neftali Menon PA - Physician Legal Archivist Preoperative diagnosis: CAD Postoperative diagnosis: CAD, intraoperative [...] Drains: Mediastinal and Left pleural Disposition: [facility] Condition: doing well without problems Attestation: Case Date: 02/17/2024 I performed this procedure without the involvement of a resident. HAYDER GRAHAM MD 02/17/2024 * Op Note - Hayder Graham MD - 02/17/2024 8:20 AM EDT [facility] Operative Note Patient Name: Karlos Garcia : [id number] MR#: [id number] Case Date: 02/17/2024 Surgeon: Surgeons and Role: * Hayder Graham MD - Primary * Neftali Menon PA - Physician Legal Archivist Preoperative diagnosis: CAD Postoperative diagnosis: CAD, intraoperative [...] Drains: Mediastinal and Left pleural Disposition: [facility] Procedure Description: The patient was brought [...] Aortic Valve Open W Cardiopulmonary Bypass Homogrf/Stent (66705) Yes 02/17/2024 7:28 AM EDT CAD Cabg, Artery-Vein, Two (96894) Yes 02/17/2024 7:28 AM EDT CAD Cabg, Arterial, Single (91048) Yes 02/17/2024 7:28 AM EDT CAD Endoscopy W/Video-Asst Vein [place], Cabg (17929) Yes 02/17/2024 7:28 AM EDT CAD POCT [...] CHEMISTRY ORDERABLE S [facility] [place] [address] * (ABNORMAL) Basic Metabolic Panel (non-fasting) (02/23/2024 [...] Carpio MD CHEMISTRY ORDERABLES Performing Organization Address [facility] Co de Phone Number [facility] [place] [address] * Potassium (02/22/2024 4:30 AM EDT) Potassium [...] CHEMISTRY ORDERABLE S Performing Organization Address [facility] Co de Phone Number [facility] [place] [address] * (ABNORMAL) Basic Metabolic Panel (non-fasting) (02/21/2024 [...] MD CHEMISTRY ORDERABLES [facility] [place] [address] * Lactate, whole blood, send to lab ([facility]) (02/21/2024 9:45 AM EDT) Lactate WB 2.0 0.5 - 2.2 mmol/L [facility] Blood 02/21/2024 9:45 AM EDT 02/21/2024 9:52 AM EDT Narrative Resulting Agency Comment Spec In Lab Hayder Graham MD CHEMISTRY ORDERABLE S Performing Organization Address City/[facility]/ZIP Co de Phone Number [facility] [place] [address] * (ABNORMAL) Hepatic Function Panel (02/21/2024 9:45 AM EDT) Pathologist [facility] Protein, Total 5.7(L) 6.1 - 8.0 [...] MD CHEMISTRY ORDERABLE S Performing Organization Address City/[facility]/ZIP Co de Phone Number [facility] [place] [address] * Lipase (02/21/2024 9:45 AM EDT) Pathologist [facility] Lipase 56 0 - 60 unit/L [facility] Blood 02/21/2024 9:45 AM EDT 02/21/2024 9:52 AM EDT Narrative Resulting Agency Comment Spec In Lab Hayder Graham MD CHEMISTRY ORDERABLE S Performing Organization Address [facility] Co de Phone Number [facility] [place] [address] * Amylase (02/21/2024 9:45 AM EDT) Amylase 69 28 - 100 unit/L [facility] Blood 02/21/2024 9:45 AM EDT 02/21/2024 9:52 AM EDT Narrative Resulting Agency Comment Spec In Lab Hayder Graham MD CHEMISTRY ORDERABLE S Performing Organization Address [facility] de Phone Number [facility] [place] [address] * Potassium (02/21/2024 3:08 AM EDT) Pathologist [facility] Potassium 3.8 3.5 - 5.0 mmol/L [facility] [...] CHEMISTRY ORDERABLE S Performing Organization Address [facility] Co de Phone Number [facility] [place] [address] * XR Chest PA & Lateral (Generic) (02/20/2024 10:19 AM EDT) WORKSTATION ID [id number] RAD Anatomical Region Laterality Modality Chest N/A Digital Radiogra phy Impressions 02/20/2024 1:11 PM EDT Small pleural effusions. No pneumothorax Thank you for letting us participate in the care of this patient. ??If you are a health care provider and have any questions regarding this report, please contact the number below. ??For patients who have questions please contact the health care giver that requested your imaging first. ? Electronically signed by: Rogerio Cruz MD, [facility] ??([phone]), at 02/20/2024 1:11 PM Narrative 02/20/2024 1:11 PM EDT EXAMINATION: XR CHEST PA AND LATERAL (GENERIC) CLINICAL HISTORY: s/p AVR/CABGx3 TECHNIQUE: PA and lateral views of the chest COMPARISON: 02/17/2024 FINDINGS: Support devices: Interval removal of [place]-Kaila catheter, endotracheal tube and mediastinal chest tubes The cardiac silhouette is stable status post median sternotomy, CABG and aortic valve replacement. There are small pleural effusions. No pneumothorax. Procedure Note Rogerio Cruz MD - 02/20/2024 EXAMINATION: XR CHEST PA AND LATERAL (GENERIC) CLINICAL HISTORY: s/p AVR/CABGx3 TECHNIQUE: PA and lateral views of the chest COMPARISON: 02/17/2024 FINDINGS: Support devices: Interval removal of [place]-Kaila catheter, endotracheal tubeand mediastinal chest tubes The [...] who have questions please contactthe health care giver that requested your imaging first. Electronically signed by: Rogerio Cruz MD, [facility]([phone]), at 02/20/2024 1:11 PM Hayder Graham MD IMG DX ORDERABLES * Scan, Peripheral Blood (02/20/2024 4:23 AM EDT) Plat estimate Decreased [facility] RBC Morphology Normal [facility] Blood 02/20/2024 4:23 AM EDT 02/20/2024 4:42 AM EDT Narrative Resulting Agency Comment Spec In Lab Minnie FRENCH HEMATOLOGY CECILIO ALEMAN [facility] [place] [address] * (ABNORMAL) Differential, Automated (02/20/2024 4:23 AM EDT) Pathologist [facility] Neutrophil % 81.7 % [facility] Neutrophil Absolute 10.37(H) 1.70 - 6.10 x10(3)/mc L [facility] Lymph % 7.4 % [facility] Lymphocytes Abs 0.9 0.9 - 3.2 x10(3)/mc L [facility] Monocyte % 9.7 % [facility] Monocyte Abs 1.2(H) 0.3 - 0.9 x10(3)/mc L [facility] Eos % 0.1 % [facility] Eosinophils Abs 0.0 0.0 - 0.4 x10(3)/mc L [facility] Basophil % 0.2 % [facility] Baso Absolute 0.0 0.0 - 0.1 x10(3)/mc L [facility] Immature Gran % 0.90 % [facility] Comment: Immature granulocytes(IG's)percentage and absolute count will include metamyelocytes, myelocytes, and promyelocytes. Blood smears from CBCs yielding IG's will be scanned manually for concordance. If this scan disagrees with the automated IG or if promyelocytes are noted, a manual differential will be performed. Immature Gran Absolute 0.12(H) 0.00 - 0.04 x10(3)/ L [facility] Blood 02/20/2024 4:23 AM EDT 02/20/2024 4:42 AM EDT Narrative Resulting Agency Comment Spec In Lab Minine FRENCH HEMATOLOGY CECILIO ALEMAN [facility] [place] [address] * (ABNORMAL) Hemogram (02/20/2024 4:23 AM EDT) White Blood Cell 12.7(H) 4.0 - 9.5 x10(3)/[facility] Red Blood Cell 4.26(L) 4.58 - 5.54 x10(6)/[facility] Hemoglobin 12.3(L) 13.7 - 16.5 g/dL [facility] Hematocrit 37.1(L) 40.5 - 48.5 % [facility] Mean Cell Volume 87.1 82.9 - 93.1 [facility] Mean Cell Hemoglobin 28.9 27.5 - 32.1 pg [facility] Mean Cell Hemoglobin Concentration 33.2 32.0 - 35.7 g/dL [facility] Platelet 88(L) 145 - 357 x10(3)/[facility] RDW Standard Deviation 43.5 36.0 - 45.0 [facility] RDW coefficient of variation 13.7 11.4 - 13.8 % [facility] Mean Platelet Volume 10.2 7.6 - 12.9 [facility] NRBC% auto 0.0 % [facility] NRBC Absolute 0.000 0.000 - 0.000 x10(3)/ L [facility] Blood 02/20/2024 4:23 AM EDT 02/20/2024 4:42 AM EDT Narrative Resulting Agency Comment Spec In Lab Minnie FRENCH HEMATOLOGY CECILIO ALEMAN [facility] [place] [address] * (ABNORMAL) Basic Metabolic Panel (non-fasting) (02/20/2024 [...] MD CHEMISTRY ORDERABLE S Performing Organization Address City/[facility]/ZIP Co de Phone Number [facility] [place] [address] * Potassium (02/19/2024 3:57 AM EDT) Potassium [...] CHEMISTRY ORDERABLE S Performing Organization Address [facility] Co de Phone Number [facility] [place] [address] * POCT Glucose (02/18/2024 8:24 AM EDT) Glucose, POC 157 65 - 199 mg/dL [facility] Comment: Supplemental ranges: <140 mg/dL before meals <180 mg/dL all other times of the day Blood 02/18/2024 8:24 AM EDT 02/18/2024 8:24 AM EDT Hayder Graham MD POINT OF CARE TEST ORDERABLES Performing Organization Address [facility]/ZIP Co de Phone Number [facility] [place] [address] * Scan, Peripheral Blood (02/18/2024 1:40 AM EDT) Plat estimate Decreased [facility] RBC Morphology Normal [facility] Blood 02/18/2024 1:40 AM EDT 02/18/2024 1:56 AM EDT Narrative Resulting Agency Comment Spec In Lab Neftali FRENCH HEMATOLOGY ORDER OLE [facility] [place] [address] * (ABNORMAL) Differential, Automated (02/18/2024 1:40 AM EDT) Neutrophil % 87.1 % [facility] Neutrophil Absolute 15.03(H) 1.70 - 6.10 x10(3)/mc L [facility] Lymph % 3.0 % [facility] Lymphocytes Abs 0.5(L) 0.9 - 3.2 x10(3)/mc L [facility] Monocyte % 9.1 % [facility] Monocyte Abs 1.6(H) 0.3 - 0.9 x10(3)/mc L [facility] Eos % 0.0 % [facility] Eosinophils Abs 0.0 0.0 - 0.4 x10(3)/mc L [facility] Basophil % 0.2 % [facility] Baso Absolute 0.0 0.0 - [...] Absolute 0.10(H) 0.00 - 0.04 x10(3)/mc L [facility] Blood 02/18/2024 1:40 AM EDT 02/18/2024 1:56 AM EDT Narrative Resulting Agency Comment Spec In Lab Neftali FRENCH HEMATOLOGY ORDER OLE [facility] [place] [address] * (ABNORMAL) Hemogram (02/18/2024 1:40 AM EDT) White Blood Cell 17.2(H) 4.0 - 9.5 x10(3)/mc L [facility] NRBC% auto 0.0 % [facility] NRBC Absolute 0.000 0.000 - 0.000 x10(3)/mc L [facility] Blood 02/18/2024 1:40 AM EDT 02/18/2024 1:56 AM EDT Narrative Resulting Agency Comment Spec In Lab Neftali FRENCH HEMATOLOGY ORDER OLE [facility] [place] [address] * (ABNORMAL) Basic Metabolic Panel (non-fasting) (02/18/2024 [...] CHEMISTRY ORDERABLE S [facility] [place] [address] * (ABNORMAL) Troponin (02/18/2024 1:40 AM EDT) [...] troponin value can be found in the [facility] Test Catalog Troponin - [facility] Test Catalog Reference: Fourth [place] Definition of Myocardial Infarction. Journal of the [place] [employer] 2018;72:3380-7736 Blood 02/18/2024 1:40 AM EDT 02/18/2024 1:56 AM EDT Narrative Resulting Agency Comment Spec In Lab Hayder Graham MD CHEMISTRY ORDERABLE S [facility] [place] [address] * POCT Glucose (02/17/2024 8:13 PM EDT) Glucose, POC 142 65 - 199 mg/dL [facility] Comment: Supplemental ranges: <140 mg/dL before meals <180 mg/dL all other times of the day Blood 02/17/2024 8:13 PM EDT 02/17/2024 8:13 PM EDT Hayder Graham MD POINT OF CARE TEST ORDERABLES Performing Organization Address [facility] Co de Phone Number [facility] [place] [address] * POCT Glucose (02/17/2024 5:42 PM EDT) Glucose, POC 160 65 - 199 mg/dL [facility] Comment: Supplemental ranges: <140 mg/dL before meals <180 mg/dL all other times of the day Blood 02/17/2024 5:42 PM EDT 02/17/2024 5:42 PM EDT Hayder Graham MD POINT OF CARE TEST ORDERABLES Performing Organization Address [facility] Co de Phone Number [facility] [place] [address] * Hemoglobin (02/17/2024 5:42 PM EDT) [facility] Signature Hemoglobin 13.7 13.7 - 16.5 g/dL [facility] Blood 02/17/2024 5:42 PM EDT 02/17/2024 6:10 PM EDT Narrative Resulting Agency Comment Spec In Lab Hayder Graham MD HEMATOLOGY ORDERABL ES Performing Organization Address [facility] Co de Phone Number [facility] [place] [address] * Potassium (02/17/2024 5:42 PM EDT) [facility] Signature Potassium 4.3 3.5 - 5.0 mmol/L [facility] [...] CHEMISTRY ORDERABLE S [facility] [place] [address] * (ABNORMAL) BLOOD GAS 2 ARTERIAL (02/17/2024 [...] [facility] FIO2 Art 40 % [facility] PF Ratio Art 195 [facility] Blood 02/17/2024 4:18 PM EDT 02/17/2024 4:18 PM EDT Hayder Graham MD POINT OF CARE TEST ORDERABLES [facility] [place] [address] * XR Chest One View (02/17/2024 1:44 PM EDT) [employer] WORKSTATION ID [id number] DH RAD Anatomical Region Laterality Modality Chest N/A Digital Radiogra phy Impressions 02/17/2024 2:12 PM EDT 1. ??No definite pleural fluid collection or pneumothorax. 2. ??Right IJ Se[place]-Kaila catheter tip terminates in a descending branch [...] have questions please contact the health care giver that requested your imaging first. ? Electronically signed by: Denzel Hankins MD, [facility] ??([phone]), at 02/17/2024 2:12 PM Narrative 02/17/2024 2:12 PM EDT EXAMINATION: XR CHEST ONE VIEW CLINICAL HISTORY: s/p avr/cabg eval effusions TECHNIQUE: 1 view of the chest COMPARISON: Chest x-ray 01/09/2024, chest CT 02/03/2024 FINDINGS: ET tube tip terminates 5.2 cm above the carlos. Right IJ Se[place]-Kaila catheter tip terminates in a descending branch [...] 5.2 cm above the carlos. Right IJ Sebring-Ganzcatheter tip terminates in a descending branch of [...] fluid collection or pneumothorax. 2. Right IJ Se[place]-Kaila catheter tip terminates in a descending branch ofthe right pulmonary artery. Suggest catheter retraction. 3. Additional support lines and tubes as above. Thank you for letting us participate in the care of this patient. If youare a health care provider and have any questions regarding this report,please contact the number below. For patients who have questions please contactthe health care giver that requested your imaging first. Electronically signed by: Denzel Hankins MD, [facility]([phone]), at 02/17/2024 2:12 PM Hayder Graham MD [...] MEDICAL CENTER [facility] FIO2 Art 100 % [facility] PF Ratio Art 320 [facility] Blood 02/17/2024 1:31 PM EDT 02/17/2024 1:31 PM EDT Hayder Graham MD POINT OF CARE TEST ORDERABLES [facility] [place] [address] * (ABNORMAL) Coox2 (02/17/2024 1:21 PM EDT) [...] OF CARE TEST ORDERABLES Performing Organization Address City/[facility]/ZIP Co de Phone Number [facility] [place] [address] * (ABNORMAL) BLOOD GAS 2 ARTERIAL (02/17/2024 [...] CARE TEST ORDERABLES Performing Organization Address [facility] Co de Phone Number [facility] [place] [address] * (ABNORMAL) Fibrinogen (02/17/2024 12:10 PM EDT) [...] HEMATOLOGY ORDERABLE S Performing Organization Address [facility] Co de Phone Number [facility] [place] [address] * (ABNORMAL) Thrombin time (02/17/2024 12:10 PM [...] HEMATOLOGY ORDERABLE S Performing Organization Address [facility] Co de Phone Number [facility] [place] [address] * APTT (02/17/2024 12:10 PM EDT) Partial [...] HEMATOLOGY ORDERABLE S Performing Organization Address [facility] Co de Phone Number [facility] [place] [address] * (ABNORMAL) Prothrombin Time (02/17/2024 12:10 PM [...] HEMATOLOGY ORDERABLE S [facility] [place] [address] * (ABNORMAL) Hemogram (02/17/2024 12:10 PM EDT) [...] MEDICAL CENTER [facility] NRBC% auto 0.0 % [facility] NRBC Absolute 0.000 0.000 - 0.000 x10(3)/mc L [facility] Blood 02/17/2024 12:1 0 PM EDT 02/17/2024 12:19 PM EDT Narrative Resulting Agency Comment Spec In Lab Tara York MD HEMATOLOGY ORDERABLE S [facility] [place] [address] * (ABNORMAL) BLOOD GAS 2 ARTERIAL (02/17/2024 [...] [facility] Comment: Noted by gasoline tractor operator. Please note: Patients with WBC >100,000 [...] CARE TEST ORDERABLES [facility] [address] [place] [address] * (ABNORMAL) BLOOD GAS 2 ARTERIAL (02/17/2024 [...] [facility] Comment: Noted by gasoline tractor operator. Please note: Patients with WBC >100,000 [...] CARE TEST ORDERABLES Performing Organization Address [facility] de Phone Number [facility] [place] [address] * (ABNORMAL) Hemoglobin and Hematocrit, blood (02/17/2024 [...] HEMATOLOGY ORDERABL ES Performing Organization Address [facility] de Phone Number [facility] [place] [address] * (ABNORMAL) Platelet count (02/17/2024 11:04 AM EDT) Platelet 106(L) 145 - 357 x10(3)/mc L [facility] Immature Plt % 1.6 0.0 - 7.4 % [facility] Comment: Limitation of the Immature Platelet Fraction (IPF)-May be less reliable when the platelet count is less than 21h515/uL due to statistical imprecision. The IPF value [...] in a decreased state of production. References: [employer] The Clinical Value of the Immature Platelet Fraction (IPF) in Cell Recovery Document Number 10-1143 03/2011 [employer] The Role of the Immature Platelet Fraction (IPF) in the Differential Diagnosis of Thrombocytopenia, Document [id number] V002/15/14 Blood 02/17/2024 11:0 4 AM EDT 02/17/2024 11:12 AM EDT Narrative Resulting Agency Comment Spec In Lab Hayder Graham MD HEMATOLOGY ORDERABL ES Performing Organization Address City/[facility]/ZIP Co de Phone Number [facility] [place] [address] * (ABNORMAL) Fibrinogen (02/17/2024 11:04 AM EDT) Fibrinogen 149(L) 200 - 393 mg/dL [facility] [...] MD HEMATOLOGY ORDERABL ES Performing Organization Address City/[facility]/ZIP Co de Phone Number [facility] [place] [address] * (ABNORMAL) BLOOD GAS 2 ARTERIAL (02/17/2024 [...] CARE TEST ORDERABLES [facility] [place] [address] * (ABNORMAL) BLOOD GAS 2 ARTERIAL (02/17/2024 [...] OF CARE TEST ORDERABLES Performing Organization Address City/State/[facility] Co de Phone Number [facility] [place] [address] * Surgical Pathology Report (02/17/2024 10:01 AM EDT) Final Diagnosis [id number] ? Location: [facility]; [facility]; The signing pathologist has (i) examined the relevant preparation(s) for the specimen(s) and (ii) rendered or confirmed the diagnosis(es). . ?Surgical Pathology DIAGNOSIS Aortic valve leaflets, excision: Valve leaflets with myxoid degeneration, nodular fibrosis and dystrophic calcifications. Electronically signed by: ?Lindsay FERNANDEZ, Livier Gonzalez Verified: ??02/24/2024 13:49 ??Pathologist Performed at: ??-[facility] Dept. of Pathology, [place] [address] Pole Inspector: Job Brewer MD, FCAP, ??CLIA Certificate: [id number] SPECIMEN(S) SUBMITTED A - Aortic Valve Leaflets, [...] Sections Processing Blocks submitted for decalcification: A1. Cold Patcher sections in 1 cassette labeled A1. ??ajw 02/24/2024 1:49 PM EDT [facility] AORTIC STRUCTURE / Unknown 02/17/2024 10:01 AM EDT 02/17/2024 10:01 AM EDT Hayder Graham MD PATHOLOGY/[place] [address] * Specimen to Pathology (02/17/2024 10:01 AM EDT) AP Specimen 02/17/2024 10:0 1 AM EDT 02/17/2024 10:01 AM EDT Narrative [facility] - 02/17/2024 10:01 AM EDT Specimen requisition ordered. ??Separate Pathology report to follow Hayder Graham MD PATHOLOGY/CYTOLOGY ORDERABLES [facility] [place] [address] * (ABNORMAL) BLOOD GAS 2 ARTERIAL (02/17/2024 [...] CARE TEST ORDERABLES [facility] [place] [address] * (ABNORMAL) BLOOD GAS 2 VENOUS (02/17/2024 9:34 AM EDT) pH, Venous 7.22(Criti marquez) 7.32 - 7.42 [facility] Comment:Noted by gasoline tractor operator. PCO2, Venous 43 41 - 51 mmHg [facility] Comment:Noted by gasoline tractor operator. PO2, Venous 57(H) 25 - 40 mmHg [facility] Comment:Noted by gasoline tractor operator. Bicarbonate, Venous 17.1 mmol/L [facility] Comment:Noted by gasoline tractor operator. Base Excess, Venous -10.6 mmol/L [facility] Comment:Noted by gasoline tractor operator. Hgb Blood Gas 11.2(L) 13.7 - 16.5 g/dL [facility] Comment:Noted by gasoline tractor operator. Oxyhemoglobin, Venous 86.5 % [facility] Comment:Noted by gasoline tractor operator. Carboxyhemoglob in, Venous 0.3 % [facility] Comment: Noted by gasoline tractor operator. Nonsmokers: 0.5-1.5% COHB Smokers: Variable, but usually less than 10% Toxic: 20-30% COHB Lethal: Greater than 60% COHB Methemoglobin, Venous 0.0 <=1.5 % [facility] Comment:Noted by gasoline tractor operator. Na Whole Blood 156(H) 135 - 145 mmol/L [facility] Comment:Noted by gasoline tractor operator. K Whole Blood 5.5(H) 3.5 - 5.0 mmol/L [facility] Comment: Noted by gasoline tractor operator. Please note: Patients with WBC >100,000 may have falsely elevated Potassium levels. Contact the Clinical Chemistry Laboratory if there are any questions. ICa Whole Blood 1.03(L) 1.15 - 1.33 mmol/L [facility] Comment: Noted by gasoline tractor operator. Note: ??Total bilirubin higher than 20 mg/dL may lead to falsely low ionized calcium. CL Whole Blood 100 98 - 107 mmol/L [facility] Comment:Noted by gasoline tractor operator. Gluc Whole Bld 132 65 - 199 mg/dL [facility] Comment: Noted by gasoline tractor operator. Diabetes: >=200 mg/dL plus symptoms Lactate WB 1.0 0.5 - 2.2 mmol/L [facility] Comment:Noted by gasoline tractor operator. Blood Gas Source Venous [facility] Blood 02/17/2024 9:34 AM EDT 02/17/2024 9:34 AM EDT Hayder Graham MD POINT OF CARE TEST ORDERABLES [facility] [place] [address] * (ABNORMAL) BLOOD GAS 2 ARTERIAL (02/17/2024 [...] OF CARE TEST ORDERABLES Performing Organization Address City/[facility]/ZIP Co de Phone Number [facility] [place] [address] * POCT Glucose (02/17/2024 6:38 AM EDT) Glucose, POC 98 65 - 199 mg/dL [facility] Comment: Supplemental ranges: <140 mg/dL before meals <180 mg/dL all other times of the day Blood 02/17/2024 6:38 AM EDT 02/17/2024 6:38 AM EDT Hayder Graham MD POINT OF CARE TEST ORDERABLES Performing Organization Address [facility] Co de Phone Number [facility] [place] [address] * Transesophageal Echo/OR (02/17/2024 6:33 AM EDT) [...] [facility] cardiac [...] Routine documented in this encounter Care Teams Media Clerk Relationship Specialty Start Date End Date Aparna Jordan APRN PCP - General Family Medicine 10/21/23 05/26/24 documented as of this encounter
--- OUTSIDE RECORDS SUMMARY | 2024-08-13 10:23 | XMS_ITS | Encounter Summary ---
[place] [address] Care Team Providers Care Interceptor Operator Name Role Phone Vanessa Christian Lane DOTSON Primary Care Provider [phone] Reason for Referral * Diagnostic Test (Routine) - Closed Specialty Diagnoses / Procedures Referred By Contac t Referred To Contact Radiology Diagnoses Nonrheumatic aortic valve stenosis Procedures CT Chest wo Contrast (Generic) Louisa Cho PA [facility] [address] [place] [address] [facility] [place] [address] Referral ID Status Reason Start Date Expiration Date V isits Requested Visits Authorized [id number] Closed Specialty Service Requested 01/10/2024 07/11/2025 1 1 Reason for Visit * Diagnostic Test (Routine) - Closed Specialty Diagnoses / Procedures Referred By Contac t Referred To Contact Radiology Diagnoses Nonrheumatic aortic valve stenosis Procedures CT Chest wo Contrast (Generic) Louisa Cho PA [facility] [place] [address] [facility] [place] [address] Referral ID Status Reason Start Date Expiration Date V isits Requested Visits Authorized [id number] Closed Specialty Service Requested 01/10/2024 07/11/2025 1 1 Encounter Details Date Type Department Care Team (Latest Contact Info) Description 02/03/2024 7:36 AM EDT - 02/03/2024 8:05 AM EDT Hospital Encounter CT Scan at [facility] [place] [address] Zak Farmer MD [facility] [place] [address] Nonrheumatic aortic valve stenosis Discharge Disposition: Home [...] wo Contrast (Generic) (02/03/2024 7:44 AM EDT) [employer] Signature WORKSTATION ID [id number] RAD Anatomical Region Laterality Modality Chest Computed [...] questions please contact the health foster care therapist that requested your imaging first. ? Electronically signed by: Rogerio Wright MD, [facility] ([phone]), at 02/03/2024 10:00 AM Narrative 02/03/2024 10:00 [...] have questions please contactthe health foster care therapist that requested your imaging first. Electronically signed by: Rogerio Wright MD, [facility]([phone]), at 02/03/2024 10:00 AM Zak Farmer MD IMG CT ORDERABLES documented in this encounter Visit Diagnoses Diagnosis Nonrheumatic aortic valve stenosis Aortic valve disorders documented in this encounter Care Teams Interceptor Operator Relationship Specialty Start Date End Date Vanessa Christian APRN PCP - General Family Medicine 10/21/23 05/26/24 documented as of this encounter
--- OUTSIDE RECORDS SUMMARY | 2024-08-13 10:23 | XMS_ITS | Encounter Summary ---
Author Organization [facility] [place] [address] Care Team Providers Care Shell Trim Operator Name Role Phone Vanessa Christian MAURI Primary Care Provider [phone] Reason for Visit * Auth/Cert (Routine) Specialty [...] MD [facility] [place] [address] [facility] Referral ID Status Reason Start Date Expiration Date Visits Re quested Visits Authorized [id number] 1 1 Encounter Details Date Type Department Care Team (Late st Contact Info) Description 02/17/2024 7:35 AM EDT Anesthesia Event Main Operating Room [facility] [place] [id number] Roman York MD [facility] [place] [address] Anesthesia Record Procedure Summary Procedure Name Responsible [...] by Sadiq Woo RN PIV 02/17/24; 0715; kjzz-[id number]-madwoc catheter system; 18 gauge; cephalic vein (lateral [...] th e electric, gas, oil, or water [employer] threatened to shut off services in your [...] Procedure Summary Date: 02/17/24 Room / Location: [facility] OR [address] [place] [address] MAIN OR Anesthesia Start: 734 Anesthesia Stop: [...] 08/14/2023 ??? Nevus of face 09/26/2023 Right gnosticism No past surgical history on file. Social [...] mg documented in this encounter Care Teams Shell Trim Operator Relationship Specialty Start Date End Date Vanessa Christian APRN PCP - General Family Medicine 10/21/23 05/26/24 documented as of this encounter
--- OUTSIDE RECORDS SUMMARY | 2024-08-13 10:23 | XMS_ITS | Encounter Summary ---
Author Organization [facility] [place] [address] Care Team Providers Care Discharging Machine Operator Name Role Phone Vanessa Christian MAURI Primary Care Provider [phone] Reason for Visit * Auth/Cert (Routine) Specialty [...] W RHC (WRVU 5.9) Rima Dickinson MD [facility] [place] [address] [facility] Referral ID Status Reason Start Date Expiration Date Visits Re quested Visits Authorized [id number] 1 1 Encounter Details Date Type Department Care Team (Latest Contact Info) Description 02/03/2024 8:06 AM EDT - 02/03/2024 2:54 PM EDT Hospital Encounter [place] [address] Rima Dickinson MD [facility] [place] [address] Screening for cardiovascular condition; Aortic valve stenosis, [...] lbs Follow-up Visits Follow up with your breaker unit assembler in 2-4 weeks Access Site 'Black and Blue' and tenderness is expected during the first week Call if you noted a mass (lump) greater than the size of a ellis Call Office with any Questions and if you have any of the following Clarence Lane M.D Interventional Power Truck Driver Feed Research Aide #: [phone] * Attachments The following attachments cannot be sent through Care Everywhere. * CAD (Coronary Artery Disease): General Info (Setswana) * Coronary Angiogram: Post-op (Setswana) documented in this encounter Medications at Time [...] Lane MD - 02/03/2024 11:48 AM EDT [facility] Interventional Cardiology Adult Pre-Procedure H&P Update: Cardiac Catheterization Karlos Anthony [id number] 1960 Chief Complaint: Aortic stenosis HPI: Mr. [...] inthe chart Clarence Lane MD Interventional Power Truck Driver 02/03/24 11:48 AM documented in this encounter Miscellaneous Notes * Brief Op Note - Clarence Lane MD - 02/03/2024 12:51 PM EDT Preliminary Cardiac Catheterization Procedure Note: Patient Name: Karlos Anthony : [id number] MR#: [id number] Case Date: 02/03/2024 Feed Research Aide: Surgeon(s) and Role: * Saira Lua MD [...] Other Narrative 02/12/2024 3:47 PM EDT ?[facility] ? Cardiac Catheterization/Intervention Report ? Patient Name: Patenaude, Karlos ? Procedure Date: 02/03/2024 ? A #: [id number] ? Primary Physician: Mogadam, Emad ? Case #: [id number] ? File Name: [id number] ? Catheterization Order Number: [id number] ? [facility] ? Final Report [place], [place] ? Patient Name: ? Karlos Anthony ? ID#: ?[id number] ? : ?1960 ? Procedure Date: ? [...] Note Saira Lua MD - 02/12/2024 [facility] Cardiac Catheterization/Intervention Report Patient Name: Karlos Anthony Procedure Date: 02/03/2024 A #: [id number] Primary Physician: Saira Lua Case #: [id number] File Name: [id number] Catheterization Order Number: [id number] [facility] FinalReport [place], [place] Patient Name: Karlos Anthony ID#:[id number] :[id number] Procedure Date: February 03, 2024 Case [...] designated as ASA Class III. The [facility] clinical frailty scale is 3: Managing [...] 372 ms MUSE SYSTEM Calculated P [place] 59 degrees MUSE SYSTEM Calculated R [place] 34 degrees MUSE SYSTEM Calculated T [place] 63 degrees MUSE SYSTEM INTERPRETATION Sinus [...] MD) documented in this encounter Care Teams Discharging Machine Operator Relationship Specialty Start Date End Date Vanessa Christian APRN PCP - General Family Medicine 10/21/23 05/26/24 documented as of this encounter
--- OUTSIDE RECORDS SUMMARY | 2024-08-13 10:23 | XMS_ITS | Encounter Summary ---
Author Organization [facility] [place] [address] Care Team Providers Care Help Desk Support Specialist Name Role Phone Vanessa Christian APRN Primary Care Provider [phone] Encounter Details Date Type Department Care Team (Late st Contact Info) Description 01/10/2024 Orders Only [place] [id number] Lawson Napoles PA [facility] [place] [address] [place] [address] Screening for cardiovascular condition; Aortic valve stenosis, [...] unspecified documented in this encounter Care Teams Help Desk Support Specialist Relationship Specialty Start Date End Date Vanessa Christian APRN PCP - General Family Medicine 10/21/23 05/26/24 documented as of this encounter
--- OUTSIDE RECORDS SUMMARY | 2024-08-13 10:23 | XMS_ITS | Encounter Summary ---
Author Organization [facility] [place] [address] Care Team Providers Care Weight Loss Consultant Name Role Phone Vanessa Christian APRN Primary Care Provider [phone] Encounter Details Date Type Department Care Team [...] on filedocumented in this encounter Care Teams Weight Loss Consultant Relationship Specialty Start Date End Date Vanessa Christian APRN PCP - General Family Medicine 10/21/23 05/26/24 documented as of this encounter
--- OUTSIDE RECORDS SUMMARY | 2024-08-13 10:23 | XMS_ITS | Encounter Summary ---
Author Organization [facility] [place] [address] Care Team Providers Care Superintendent Pier Name Role Phone Vanessa Christian APRN Primary Care Provider [phone] Encounter Details Date Type Department Care Team [...] on filedocumented in this encounter Care Teams Superintendent Pier Relationship Specialty Start Date End Date Vanessa Christian APRN PCP - General Family Medicine 10/21/23 05/26/24 documented as of this encounter
--- OUTSIDE RECORDS SUMMARY | 2024-08-13 10:24 | XMS_ITS | Encounter Summary ---
Author Organization [facility] [place] [address] Care Team Providers Care Molding Line Operator Name Role Phone Vanessa Christian APRN Primary Care Provider [phone] Encounter Details Date Type Department Care Team (Late st Contact Info) Description 10/21/2023 Abstract Cardiology at [address] [place] [phone] Adam Mayes RN Social History Tobacco Use [...] filedocumented in this encounter Care Teams Molding Line Operator Relationship Specialty Start Date End Date Vanessa Christian APRN PCP - General Family Medicine 10/21/23 05/26/24 documented as of this encounter
--- OUTSIDE RECORDS SUMMARY | 2024-08-13 10:24 | XMS_ITS | Encounter Summary ---
Author Organization [facility] [place] [address] Care Team Providers Care Material Controller Name Role Phone Vanessa Christian APRN Primary Care Provider [phone] Encounter Details Date Type Department Care Team (Late st Contact Info) Description 10/21/2023 Abstract Cardiology at [address] [place] [phone] Adam Mayes RN Social History Tobacco Use [...] on filedocumented in this encounter Care Teams Material Controller Relationship Specialty Start Date End Date Vanessa Christian APRN PCP - General Family Medicine 10/21/23 05/26/24 documented as of this encounter
--- OUTSIDE RECORDS SUMMARY | 2024-08-13 10:24 | XMS_ITS | Encounter Summary ---
Author Organization [facility] [place] [address] Care Team Providers Care Plumbing And Heating Mechanic Name Role Phone Victor M Lafleur MD Primary Care Provider [phone] Encounter Details Date Type Department Care Team (Late st Contact Info) Description 09/26/2023 Abstract Cardiology at [address] [address] Karen Billy, RN Nonrheumatic aortic [...] face documented in this encounter Care Teams Plumbing And Heating Mechanic Relationship Specialty Start Date End Date Victor M Lafleur MD PCP - General 10/02/13 10/20/23 documented as of this encounter
--- OUTSIDE RECORDS SUMMARY | 2024-08-13 10:24 | XMS_ITS | Encounter Summary ---
Author Organization [facility] [place] [address] Care Team Providers Care Graduating Machine Operator Name Role Phone Vanessa Christian APRN Primary Care Provider [phone] Encounter Details Date Type Department Care Team (Late st Contact Info) Description 12/26/2023 Notes Only Cardiology at [address] [place] [address] Neftali Ernandez MD [facility] [place] [address] Social History Tobacco Use Types Packs/Day Years [...] 1:37 PM EDT Echocardiogram images reviewed from [facility]. Indeed, the aortic valve appears severely stenotic. Cannotrule out bicuspid valve documented in this encounter Plan of Treatment Not on file documented as of this encounter Visit Diagnoses Not on filedocumented in this encounter Care Teams Graduating Machine Operator Relationship Specialty Start Date End Date Vanessa Christian APRN PCP - General Family Medicine 10/21/23 05/26/24 documented as of this encounter
--- OUTSIDE RECORDS SUMMARY | 2024-08-13 10:24 | XMS_ITS | Encounter Summary ---
Author Organization [facility] Address [facility] Ivana linareseileen [place] [id number] Care Team Providers Care Inventory Worker Name Role Phone Vanessa Christian MAURI Primary Care Provider [phone] Reason for Referral * Consultation (Routine) - Closed Specialty Diagnoses / Procedures Referred By Contac t Referred To Contact Cardiac Surgery Diagnoses Nonrheumatic aortic valve stenosis significant - TAVR ( defers to Card Surg d/t age) Errol Loya MD [facility] [place] [address] Zak Farmer MD [facility] [place] [address] Referral ID Status Reason Start Date Expiration Date V isits Requested Visits Authorized [id number] Closed Consult, Test & Treat 10/21/2023 10/20/2024 1 1 Reason for Visit * Reason Comments Chest Pain Shortness of Breath Aortic Stenosis Encounter Details Date Type Department Care Team (Late st Contact Info) Description 10/21/2023 1:20 PM EST Office Visit Cardiology at [address] [address] Errol Loya MD [facility] [place] [address] Nonrheumatic aortic valve stenosis Social History Tobacco [...] Problem List Diagnosis Aortic stenosis 12/2022 TTE ([facility]): VITA 0.8-0.9 cm2 (MG 28 mmHg, DOI 3.6 m/s, SVI 35 cc/m2). Trace regurgitation. Normal bi-v s/f, no other valve findings Gastroesophageal reflux Nevus of face Right tenriism Hypertension HLD (hyperlipidemia) MEDICATIONS: Current Outpatient Medications [...] the meantime will refer to T at [facility] for further evaluation. Logistics and preliminary [...] the meantime will refer to T at [facility] for further evaluation. Logistics and preliminary [...] disorders documented in this encounter Care Teams Inventory Worker Relationship Specialty Start Date End Date Vanessa Christian APRN PCP - General Family Medicine 10/21/23 05/26/24 documented as of this encounter
--- OUTSIDE RECORDS SUMMARY | 2024-08-13 10:24 | XMS_ITS | Encounter Summary ---
[place] [address] Care Team Providers Care Director Religious Education Name Role Phone Victor M Lafleur MD Primary Care Provider [phone] Reason for Visit * Reason Onset Date Comments Referral 09/20/2023 Encounter Details Date Type Department Care Team (Late st Contact Info) Description 09/20/2023 Telephone Cardiology at [address] [address] Karen Billy, yard loader operator Social History Tobacco Use Types Packs/Day [...] filedocumented in this encounter Care Teams Director Religious Education Relationship Specialty Start Date End Date Victor M Lafleur MD PCP - General 10/02/13 10/20/23 documented as of this encounter
--- OUTSIDE RECORDS SUMMARY | 2024-08-13 10:24 | XMS_ITS | Encounter Summary ---
Author Organization [facility] Address [facility] [place] [address] Care Team Providers Care Tobacco Hanger Name Role Phone Vanessa Christian MAURI Primary Care Provider [phone] Reason for Visit * Consultation (Routine) - Closed Specialty Diagnoses / Procedures Referred By Contac t Referred To Contact Cardiac Surgery Diagnoses Nonrheumatic aortic valve stenosis significant - TAVR ( defers to Card Surg d/t age) Neftali Ernandez MD [facility] [place] [address] Zak Farmer MD [facility] CARDIOTHORACIC [place] [address] Referral ID Status Reason Start Date Expiration Date V isits Requested Visits Authorized [id number] Closed Consult, Test & Treat 10/21/2023 10/20/2024 1 1 Encounter Details Date Type Department Care Team (Late st Contact Info) Description 01/09/2024 1:40 PM EDT Office [place] [address] Zak Farmer MD [facility] CARDIOTHORACIC [place] [address] Nonrheumatic aortic valve stenosis Social [...] office. Best personal regards, Zak Farmer MD [phone] In aggregate 55 minutes were spent evaluating [...] questions please contact the health managed care analyst that requested your imaging first. ? [...] have questions please contactthe health managed care analyst that requested your imaging first. Zak Farmer [...] CHEMISTRY ORDERABLE S [facility] [place] [address] * Hepatic Function Panel (01/09/2024 2:58 PM [...] ORDERABLE S Performing Organization Address [facility] Co de Phone Number [facility] [place] [address] * Prothrombin Time (01/09/2024 2:58 PM EDT) [...] ORDERABL ES Performing Organization Address [facility] Co de Phone Number [facility] [place] [address] * Type and Screen Future Surgery, [facility] SAME DAY PROGRAM ONLY) (01/09/2024 2:58 PM EDT) ABORH Type O NEGATIVE [facility] Patient BB History Not Found [facility] Expires at [id number] on: 02-20-2024 [facility] Ab Screen Interp Negative [facility] Blood 01/09/2024 2:58 PM EDT 01/09/2024 2:58 PM EDT Narrative Resulting Agency Comment Spec In Lab Zak Farmer MD [facility] Performing Organization Address City/State/[facility] Co de Phone Number [facility] [place] [address] documented in this encounter Visit Diagnoses Diagnosis Nonrheumatic aortic valve stenosis Aortic valve disorders Nonrheumatic aortic valve stenosis Aortic valve disorders documented in this encounter Care Teams Tobacco Hanger Relationship Specialty Start Date End Date Vanessa Christian, PROTOCOL OFFICER PCP - General Family Medicine 10/21/23 05/26/24 documented as of this encounter
--- OUTSIDE RECORDS SUMMARY | 2024-08-13 10:24 | XMS_ITS | Encounter Summary ---
Author Organization [facility] [place] [address] Care Team Providers Care Lock Tender Chief Operator Name Role Phone Vanessa Christian APRN Primary Care Provider [phone] Encounter Details Date Type Department Care Team [...] on filedocumented in this encounter Care Teams Lock Tender Chief Operator Relationship Specialty Start Date End Date Vanessa Christian APRN PCP - General Family Medicine 10/21/23 05/26/24 documented as of this encounter
[2024-08-18 09:59] VITALS: BP 114/57; PULSE 79
--- OUTSIDE RECORDS SUMMARY | 2024-08-18 10:07 | XMS_ITS | Referral Summary ---
Author Organization [facility] Address [address] [place] [address] Care Team Providers Care Architectural Engineer Name Role Phone Vanessa Chirstian Lane MONCADA Primary Care Provider [phone] Social History Tobacco Use Types Packs/Day Years Used Date Smoking Tobacco: Never Assessed Sex and Gender Information Value Date Recorded Sex Assigned at Not on file Legal Sex Male 22:02 EST Gender Identity Not on file Sexual Orientation Not on file Plan of Treatment Not on file Insurance R Care Teams Architectural Engineer Relationship Specialty Start Date End Date Vanessa Christian, ANTWAN [address] [place] [phone] PCP - General Family Medicine - Primary Care 10/07/23
--- OUTSIDE RECORDS SUMMARY | 2024-08-18 10:07 | XMS_ITS | Clinical Summary ---
Author Organization [facility] Address [facility] [place] [address] Care Team Providers Care Product Responsibility Liaison Name Role Phone Vanessa Christian Lane DOTSON Primary Care Provider [phone] Allergies No known active allergies Medications Medication [...] the meantime will refer to SHT at [facility] for further evaluation. Logistics and preliminary review of TONY were reviewed with patient. - Refer to SHT Hypertension 08/14/2023 Resolved Problems Problem Noted Date Diagnosed Date Resolved Date Nevus of face 09/26/2023 05/27/2024 Overview (09/26/2023): Right pentecostal Chest pressure 08/14/2023 10/21/2023 SILVA (dyspnea on exertion) 08/14/2023 HLD (hyperlipidemia) 08/14/2023 024 Encounters Date Type Department Care Team Description 05/27/2024 11:00 AM EDT Office Visit Cardiology at [address] [place] [address] Neftali Ernandez MD ASCVD (arteriosclerotic [...] PCV) 2024 Medical Devices Implanted Type Area Patient Safety Manager Device Identifier Shelf Expiration Date Model / Serial / Lot Cable,Cut,Edg ,Blnt,Ss,3tpr ([id number]) - [id number] Implanted:Qty : 1 on 02/17/2024 by Zak Farmer MD at [facility] IMPLANTS Midline: Chest [employer] - [id number] 09/02/2028 [id number] / / [id number] Valve Coronary Aortic 23mm Tissue Trnscath Biopros Inspiris ([id number]) (Autoreq) - [id number] Implanted:Qty : 1 on 02/17/2024 by Zak Farmer MD at [facility] IMPLANTS Heart [employer] - TSAI LI 09/15/2027 [id number] 23MM / [id number] / Procedures Procedure Name Priority Date/Time Associated [...] (Bezet) 367 ms MUSE SYSTEM Calculated P [place] 12 degrees MUSE SYSTEM Calculated R [place] 27 degrees MUSE SYSTEM Calculated T [place] 62 degrees MUSE SYSTEM INTERPRETATION Sinus bradycardia with 1st degree A-V block Otherwise normal ECG When compared with ECG of 12-MAR-2024 14:35, T wave inversion no longer evident in Anterior leads Confirmed by MD Ernanedz Daniel ([id number]) on 06/01/2024 8:36:17 AM MUSE SYSTEM 05/27/2024 [...] Status decision made by: Patient Care Teams Product Responsibility Liaison Relationship Specialty Start Date End Date Vanessa Christian APRN [address] [place] [address] PCP - General Family Medicine 05/27/24
--- OUTSIDE RECORDS SUMMARY | 2024-08-18 10:07 | XMS_ITS | Clinical Summary ---
Author Organization [facility] Address [address] [place] [address] Care Team Providers Care Railroad Car Cleaning Supervisor Name Role Phone Filidayna Vanessa Sherman NP Primary Care Provider [phone] Social History Tobacco Use Types Packs/Day Years Used Date Smoking Tobacco: Never Assessed Sex and Gender Information Value Date Recorded Sex Assigned at Not on file Legal Sex Male 22:02 EST Gender Identity Not on file Sexual Orientation Not on file Plan of Treatment Health Maintenance Due Date Last Done Comments Hepatitis C Screen 1960 COVID-19 Vaccine (2023-25 season) 2024 Fall Risk Screening 2024 RSV Immunization ( o r 60+ Years) (1 - 1-dose 75+ series) 2034 Insurance [employer] Care Teams Railroad Car Cleaning Supervisor Relationship Specialty Start Date End Date Vanessa Christian, ANTWAN [address] [place] [phone] PCP - General Family Medicine - Primary Care 10/07/23
--- OUTSIDE RECORDS SUMMARY | 2024-08-18 10:07 | XMS_ITS | Encounter Summary ---
Author Organization [facility] Address [facility] [place] [address] Care Team Providers Care Staff Scientist Name Role Phone Vanessa Christian MAURI Primary Care Provider [phone] Encounter Details Date Type Department Care Team [...] filedocumented in this encounter Care Teams Staff Scientist Relationship Specialty Start Date End Date Vanessa Christian APRN PCP - General Family Medicine 10/21/23 05/26/24 documented as of this encounter
--- OUTSIDE RECORDS SUMMARY | 2024-08-18 10:07 | XMS_ITS | Encounter Summary ---
Author Organization [facility] Address [facility] [place] [address] Care Team Providers Care Nurse Liaison Name Role Phone Gino Vanessa Lane DOTSON Primary Care Provider [phone] Encounter Details Date Type Department Care Team (Late st Contact Info) Description 02/24/2024 Orders Only Cardiac Surgery [facility] [place] [phone] Trudi Lester APRN [facility] [place] [address] Social History Tobacco Use Types Packs/Day Years Used Date Smoking Tobacco: Former Cigarettes Smokeless Tobacco: Never Comments:Quit 15 + years ago Alcohol Use Standard Drinks/Week Comments Yes 0 (1 standard drink = 0.6 oz pur e alcohol) rare [facility] Utilities Answer Date Recorded In the past 12 months has e [employer], gas, oil, or water [employer] threatened to shut off services in your [...] on filedocumented in this encounter Care Teams Nurse Liaison Relationship Specialty Start Date End Date Vanessa Christian APRN PCP - General Family Medicine 10/21/23 05/26/24 documented as of this encounter
--- OUTSIDE RECORDS SUMMARY | 2024-08-18 10:07 | XMS_ITS | Encounter Summary ---
Author Organization [facility] Address [address] [place] [address] Care Team Providers Care Refueling Ramp Attendant Name Role Phone Filidayna Vanessa Dayna MONCADA Primary Care Provider [phone] Encounter Details Date Type Department Care Team (Late st Contact Info) Description 10/24/2023 Lab Requisition [facility] Pathology & Laboratory Medicine - [address] [address] Oscar Nichole MD [address] [place] [address] [phone] Factitial dermatitis Social History Tobacco Use Types [...] management options, if applicable. 10/28/2023 11:24 EST [facility] Final Diagnosis A. SKIN OF BAHAI, LEFT, SHAVE BIOPSY: - Seborrheic keratosis, pigmented. 10/28/2023 11:24 EST [facility] Attestation By the signature below, the attending physician certifies that they have 1) personally conducted a gross and/or microscopic examination of the described specimen(s), and/or personally interpreted the results of laboratory testing of the described specimen(s), and 2) personally rendered or confirmed the above diagnosis. 10/28/2023 11:[address] [facility] at [address] Microscopic Description The stratum corneum is thickened by compact and basketweave orthokeratosis with formation of horn pseudocysts. The epidermis is acanthotic with formation of broad and anastomosing trabeculae. The trabeculae are composed of basaloid keratinocytes with round uniform nuclei. The keratinocytes have a variable amount of melanin pigment. 10/28/2023 11:[address] [facility] Clinical History Pigmented 2 cm patch; clinical diagnosis code: L98.1 10/28/2023 11:[address] [facility] Gross Description A. Received in formalin labelled with proper patient identification (initials P, A) and left congregation is a shave biopsy of an irregular [...] Anderson 10/25/2023 8:47 10/28/2023 11:[address] [facility] Performing Lab [facility] 10/28/2023 11:[address] [facility] Scanned Images 10/28/2023 11:[address] [facility] Tissue SPECIMEN FROM SKIN / Unknown 10/24/2023 14:30 EST 10/24/2023 22:04 EST us Oscar Nichole MD PATHOLOGY ORDERABLES Final Resul t [facility] [address] [place] [address] documented in this encounter Visit Diagnoses Diagnosis Factitial dermatitis Dermatitis factitia (artefacta) documented in this encounter Care Teams Refueling Ramp Attendant Relationship Specialty Start Date End Date Vanessa Christian NP [address] [place] [address] PCP - General Family Medicine - Primary Care 10/07/23 documented as of this encounter
--- OUTSIDE RECORDS SUMMARY | 2024-08-18 10:07 | XMS_ITS | Encounter Summary ---
Author Organization [facility] Address [facility] [place] [address] Care Team Providers Care Tube Handler Name Role Phone Vanessa Christian Lane DOTSON Primary Care Provider [phone] Reason for Visit * Reason Comments Coronary Artery Disease Aortic Stenosis Encounter Details Date Type Department Care Team (Latest Contact Info) Description 05/27/2024 11:00 AM EDT Office Visit Cardiology at [address] [place] [id number] Neftali Ernandez MD [facility] [place] [address] ASCVD (arteriosclerotic cardiovascular disease); Nonrheumatic aortic valve stenosis Social History Tobacco Use Types Packs/Day Years Used Date Smoking Tobacco: Former Cigarettes Smokeless Tobacco: Never Comments:Quit 15 + years ago Alcohol Use Standard Drinks/Week Comments Yes 0 (1 standard drink = 0.6 oz pur e alcohol) rare [facility] Utilities Answer Date Recorded In the past 12 months has e [employer], gas, oil, or water [employer] threatened to shut off services in [...] disorders documented in this encounter Care Teams Tube Handler Relationship Specialty Start Date End Date Vanessa Christian, MAURI [address] [place] [address] PCP - General Family Medicine 05/27/24 documented as of this encounter
--- OUTSIDE RECORDS SUMMARY | 2024-08-18 10:07 | XMS_ITS | Encounter Summary ---
Author Organization [facility] Address [facility] [address] Care Team Providers Care Table Hand Name Role Phone Vanessa Christian MAURI Primary Care Provider [phone] Encounter Details Date Type Department Care Team [...] on filedocumented in this encounter Care Teams Table Hand Relationship Specialty Start Date End Date Vanessa Christian APRN PCP - General Family Medicine 10/21/23 05/26/24 documented as of this encounter
--- OUTSIDE RECORDS SUMMARY | 2024-08-18 10:07 | XMS_ITS | Encounter Summary ---
Author Organization [facility] Address [facility] [place] [address] Care Team Providers Care Medical Planner Name Role Phone Vanessa Christian MAURI Primary Care Provider [phone] Encounter Details Date Type Department Care Team (Latest Contact Info) Description 03/12/2024 1:30 PM EDT - 03/12/2024 11:59 PM EDT Hospital Encounter XRay at [address] [place] [address] Coronary artery disease, unspecified vessel or lesion type, unspecified whether angina present, unspecified whether [place] or transplanted heart Discharge Disposition: Home Social History Tobacco Use Types Packs/Day Years Used Date Smoking Tobacco: Former Cigarettes Smokeless Tobacco: Never Comments:Quit 15 + years ago Alcohol Use Standard Drinks/Week Comments Yes 0 (1 standard drink = 0.6 oz pur e alcohol) rare [facility] Utilities Answer Date Recorded In the past 12 months has e [employer], gas, oil, or water [employer] threatened to shut off services in [...] type, unspecified whether angina present, unspecified whether [place] or transplanted heart documented in this encounter Results * XR Chest PA & Lateral (Generic) (03/12/2024 1:42 PM EDT) WORKSTATION ID [id number] RAD Anatomical Region Laterality Modality Chest N/A [...] eval effusions I25.10, Atherosclerotic heart disease of [place] coronary artery without angina pectoris TECHNIQUE: PA [...] eval effusions I25.10, Atherosclerotic heart disease of [place] coronary artery withoutangina pectoris TECHNIQUE: PA and [...] type, unspecified whether angina present, unspecified whether [place] or transplanted heart documented in this encounter Care Teams Medical Planner Relationship Specialty Start Date End Date Vanessa Christian APRN PCP - General Family Medicine 10/21/23 05/26/24 documented as of this encounter
--- OUTSIDE RECORDS SUMMARY | 2024-08-18 10:07 | XMS_ITS | Encounter Summary ---
Author Organization [facility] Address [facility] [place] [address] Care Team Providers Care Toggle Press Operator Name Role Phone Vanessa Christian MAURI Primary Care Provider [phone] Encounter Details Date Type Department Care Team [...] on filedocumented in this encounter Care Teams Toggle Press Operator Relationship Specialty Start Date End Date Vanessa Christian APRN [address] [place] [address] PCP - General Family Medicine 05/27/24 documented as of this encounter
--- OUTSIDE RECORDS SUMMARY | 2024-08-18 10:07 | XMS_ITS | Encounter Summary ---
Author Organization [facility] Address [facility] [place] [address] Care Team Providers Care Medical Field Representative Name Role Phone Vanessa Christian MAURI Primary Care Provider [phone] Encounter Details Date Type Department Care Team (Late st Contact Info) Description 03/12/2024 2:40 PM EDT Office [place] [id number] Zak Farmre MD [facility] [address] Coronary artery disease, unspecified vessel or lesion type, unspecified whether angina present, unspecified whether [place] or transplanted heart Social History Tobacco Use Types Packs/Day Years Used Date Smoking Tobacco: Former Cigarettes Smokeless Tobacco: Never Comments:Quit 15 + years ago Alcohol Use Standard Drinks/Week Comments Yes 0 (1 standard drink = 0.6 oz pur e alcohol) rare [facility] Utilities Answer Date Recorded In the past 12 months has e [employer], gas, oil, or water [employer] threatened to shut off services in [...] 2:40 PM EDT To: MD Vanessa Coles, LEAD SOFTWARE DEVELOPER Re; Karlos Santa ( 1960) We had [...] office. Best personal regards, Zak Farmer MD [phone] documented in this encounter Plan of Treatment Not on file documented as of this encounter Procedures Procedure Name Priority Date/Time Associated Diagnosis Comments EKG 12-LEAD Routine 03/12/2024 2:35 PM EDT Coronary artery disease, unspecified vessel or lesion type, unspecified whether angina present, unspecified whether wiy[place] or transplanted heart documented in this encounter Results * EKG 12 Lead (03/12/2024 2:35 PM EDT) Ventricular rate 59 BPM MUSE SYSTEM Atrial Rate 59 BPM MUSE SYSTEM P-R Interval 190 ms MUSE SYSTEM QRS Duration 92 ms MUSE SYSTEM Q-T Interval 406 ms MUSE SYSTEM QTC Calculated (Bezet) 401 ms MUSE SYSTEM Calculated P [place] -12 degrees MUSE SYSTEM Calculated R [place] 24 degrees MUSE SYSTEM Calculated T [place] 74 degrees MUSE SYSTEM INTERPRETATION Sinus bradycardia T wave abnormality, consider anterior ischemia Abnormal ECG When compared with ECG of 17-FEB-2024 13:24, RI interval has decreased T wave inversion now evident in Anterior leads Confirmed by Paul Guzman ([id number]) on 03/15/2024 8:36:23 AM MUSE SYSTEM 03/12/2024 2:35 PM EDT 03/15/2024 8:36 AM EDT Zak Farmer MD ECG ORDERABLES [employer] documented in this encounter Visit Diagnoses Diagnosis Coronary artery disease, unspecified vessel or lesion type, unspecified whether angina present, unspecified whether wiy[place] or transplanted heart documented in this encounter Care Teams Medical Field Representative Relationship Specialty Start Date End Date Vanessa Christian, MAURI PCP - General Family Medicine 10/21/23 05/26/24 documented as of this encounter
--- OUTSIDE RECORDS SUMMARY | 2024-08-18 10:08 | XMS_ITS | Encounter Summary ---
Author Organization [facility] [place] [address] Care Team Providers Care Clerk Of Superior Court Name Role Phone Vanessa Christian Lane DOTSON Primary Care Provider [phone] Reason for Referral * Diagnostic Test (Routine) - Closed Specialty Diagnoses / Procedures Referred By Contac t Referred To Contact Radiology Diagnoses Nonrheumatic aortic valve stenosis Procedures CT Chest wo Contrast (Generic) Louisa Cho PA [facility] [place] [address] [facility] [place] [address] Referral ID Status Reason Start Date Expiration Date V isits Requested Visits Authorized [id number] Closed Specialty Service Requested 01/10/2024 07/11/2025 1 1 Reason for Visit * Diagnostic Test (Routine) - Closed Specialty Diagnoses / Procedures Referred By Contac t Referred To Contact Radiology Diagnoses Nonrheumatic aortic valve stenosis Procedures CT Chest wo Contrast (Generic) Louisa Cho PA [facility] [place] [address] [facility] [place] [address] Referral ID Status Reason Start Date Expiration Date V isits Requested Visits Authorized [id number] Closed Specialty Service Requested 01/10/2024 07/11/2025 1 1 Encounter Details Date Type Department Care Team (Latest Contact Info) Description 02/03/2024 7:36 AM EDT - 02/03/2024 8:05 AM EDT Hospital Encounter CT Scan at [facility] [place] [address] Zak Farmer MD [facility] [place] [address] Nonrheumatic aortic valve stenosis Discharge Disposition: Home [...] wo Contrast (Generic) (02/03/2024 7:44 AM EDT) Videology Signature WORKSTATION ID [id number] RAD Anatomical Region Laterality Modality Chest Computed [...] questions please contact the health career development engineer that requested your imaging first. ? Electronically signed by: Rogerio Wright MD, [facility] ([phone]), at 02/03/2024 10:00 AM Narrative 02/03/2024 10:00 [...] nodule along the minor fissure (series [id number]) and a 8 mm right lower lobe [...] have questions please contactthe health career development engineer that requested your imaging first. Electronically signed by: Rogerio Wright MD, [facility]([phone]), at 02/03/2024 10:00 AM Zak Farmer MD IMG CT ORDERABLES documented in this encounter Visit Diagnoses Diagnosis Nonrheumatic aortic valve stenosis Aortic valve disorders documented in this encounter Care Teams Clerk Of Superior Court Relationship Specialty Start Date End Date Vanessa Christian APRN PCP - General Family Medicine 10/21/23 05/26/24 documented as of this encounter
--- OUTSIDE RECORDS SUMMARY | 2024-08-18 10:08 | XMS_ITS | Encounter Summary ---
Author Organization [facility] [place] [address] Care Team Providers Care Bargeman Name Role Phone Aparna Jordan MAURI Primary Care Provider [phone] Reason for Visit * Auth/Cert (Routine) Specialty [...] ARTERIAL GRAFT (WRVU 7.93) Hayder Graham MD [facility] [place] [address] [facility] Referral ID Status Reason Start Date Expiration Date Visits Re quested Visits Authorized [id number] 1 1 Encounter Details Date Type Department Care Team (Late st Contact Info) Description 02/17/2024 7:30 AM EDT - 02/17/2024 1:26 PM EDT Surgery [place] [id number] Hayder Graham MD [facility] [place] [address] ENDOSCOPIC HARVEST VEIN(S) FOR CABG (WRVU 0.31) [...] Patient Age: 63 y.o. Birthdate: 1960 Language: Syriac Race: White Ethnicity: Not nor Admit Date: 02/17/2024 Discharge Date: 02/24/24 Attending Physician: Hayder Graham MD Follow-up Recommendations for Providers: Please continue routine management of cardiovascular risk factors including blood pressure, lipids,glucose, etc. Please note any changes to medications. Patient to follow up with PCP, Aparna Jordan APRN, in 1-2 weeks. Patient to follow up with Political Worker, Neftali Ernandez MD , in 2 weeks. Patient to follow up with Cardiac Surgeon, Dr. Hayder Graham, with a chest x-ray, EKG, and Echo. 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 Past Surgical History: Procedure Laterality Date PRO CABG, ARTERIAL, SINGLE N/A 02/17/2024 @CABG, USING ARTERIAL GRAFT;SINGLE ARTERIAL GRAFT (WRVU 33.75) performed by Hayder Graham MD at [facility] MAIN OR PRO CABG, ARTERY-VEIN, TWO N/A 02/17/2024 @CABG, TWO VENOUS GRAFTS & ARTERIAL GRAFT (WRVU 7.93) performed by Hayder Graham MD at [facility] MAIN OR PRO ENDOSCOPY W/VIDEO-ASST VEIN HARVEST, CABG Left 02/17/2024 ENDOSCOPIC HARVEST VEIN(S) FOR CABG (WRVU 0.31) performed by Hayder Graham MD at [facility] MAIN OR PRO REPLACEMENT PROSTHETIC AORTIC VALVE OPEN W CARDIOPULMONARY BYPASS HOMOGRF/STENT N/A 02/17/2024 @REPLACE AORTIC VALVE, OPEN, W\CPB, W\PROSTHETIC VALVE (WRVU 41.32) performed by Hayder Graham MD at [facility] MAIN OR Prior To Admission Medications [...] insufficiency. He has glaucoma. He used to bacCantex Pharmaceuticals until about 15 years ago. He has undergone prior herniorrhaphy. 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 Major Procedures/Operations: 02/17/24 s/p avr/cabgx3 CABG x 3 JOSE->LAD SVG->dRCA SVG->OM1 EVH from LLE AVR with a 23 mm Inspiris Bioprosthesis Hospital Course: [facility] [...] Hayder Graham and/or the Cardiac Surgery Physician Mortgage Or Loan Underwriter Team may be reached at . Antibiotic [...] Please refer to the card with the [place] Heart [employer] Guidelines for more information. You [...] Dr. Hayder Graham. You may use a [place] Track or treadmill but avoid any pulling [...] should resume a low fat, low cholesterol, [place] Heart [employer] Diet. Driving: No driving until [...] while being managed by your PCP and/or Political Worker. For future medication refills, please refer to your PCP and/or Political Worker after your discharge from our service. Thank you REMOVE CHEST TUBE SUTURES ON OR AFTER 03/02/24 Home oxygen therapy: N/A Follow up appointments: You should follow up with your PCP, Aparna Jordan APRN, in 1-2 weeks. Our office will schedule an appointment with your Political Worker, Neftali Ernandez MD , in 2 weeks. You have an appointment with your Cardiac Surgeon, Dr. Hayder Graham, 4 weeks with a chest x-ray, EKG, and Echo before your appointment. Cardiac Rehabilitation: Karlos Garcia was seen regarding participation in the outpatient Phase 2Cardiac Rehabilitation at [facility]. The patient agrees to a referral to this program. The referral will be sent at discharge and the patient should be contacted by the Program within 1- 2 weeks from discharge. Future Appointments and Orders Future Orders Complete By Expires Echocardiogram Transthoracic [28524 CPT(R)] 03/26/2024 09/25/2024 Process Instructions: Scheduling Instructions: Questions: Where will study be performed?: [facility] Does the patient have Congenital Heart Disease?: Does patient require sedation?: Sedation rationale: XR Chest PA & Lateral (Generic) [51578 88847 Custom] 03/26/2024 09/25/2024 Process Instructions: Scheduling Instructions: Questions: Portable exam?: Reason for exam and clinical history: s/p avr/cabg Clinical information / jerome questions for radiologist: Stat read required?: Date of injury if applicable: Requested Time: Where will study be performed?: [facility] Radiology Referral to Cardiac Rehab [NDL961 Custom] As directed Process Instructions: If no progress note charted, please enter Clinical details in comments. Scheduling Instructions: Questions: My question or request is: s/p AVR/CABG. Cardiac rehab at [facility]. Referral to Home Health [REF34 Custom] As directed Process Instructions: If no progress note charted, please enter Clinical details in comments. Scheduling Instructions: Comments: Please evaluate Karlos Garcia for admission to Home Health. 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 [address] [place] [address] RN orders: Cardiopulmonary assessment, incisional assessment, assess [...] issues please call the Cardiology Office at [phone] FOR MEDICARE ONLY: (please delete this section [...] care: As above. Signed: NEFTALI MENON PA-C [facility] Section of Cardiac Surgery [facility] [address] FAX [phone] Date: 02/24/2024 CC: Aparna Jordan, MAURI Jordan, Aparna Sherman APRN [address] [place] [address] documented in this encounter Discharge Instructions * [...] Hayder Graham and/or the Cardiac Surgery Physician Mortgage Or Loan Underwriter Team may be reached at . Antibiotic [...] Please refer to the card with the [place] Heart Association Guidelines for more information. You [...] Dr. Hayder Graham. You may use a [place] Track or treadmill but avoid any pulling [...] should resume a low fat, low cholesterol, [place] Heart Association Diet. Driving: No driving until [...] while being managed by your PCP and/or Political Worker. For future medication refills, please refer to your PCP and/or Political Worker after your discharge from our service. Thank you REMOVE CHEST TUBE SUTURES ON OR AFTER 03/02/24 Home oxygen therapy: N/A Follow up appointments: You should follow up with your PCP, Aparna Jordan APRN, in 1-2 weeks. Our office will schedule an appointment with your Political Worker, Neftali Ernandez MD , in 2 weeks. You have an appointment with your Cardiac Surgeon, Dr. Hayder Graham, 4 weeks with a chest x-ray, EKG, and Echo before your appointment. Cardiac Rehabilitation: Karlos Garcia was seen regarding participation in the outpatient Phase 2Cardiac Rehabilitation at [facility]. The patient agrees to a [...] on the weekends please page [phone]. * Eric Barahona PA - 02/23/2024 9:27 [...] 0600 and on the weekends please page [phone]. * Tiffanie Owens, AUTOMOBILE PAINTER - 02/22/2024 2:48 PM EDT Physical Therapy [...] d/c for 10 days. 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 He works Precautions/Special Considerations: STERNAL [...] LRAD and supervision Time IN / OUT: 5040-2434 Total Time: 30 minutes; TEFx2 Tiffanie Owens Pager: [phone] Physical Therapy Inpatient Rehabilitation Department * Romeo [...] 0600 and on the weekends please page [phone]. * Kelley Hinson AUTOMOBILE PAINTER - 02/21/2024 10:15 AM EDT Physical Therapy [...] d/c for 10 days. 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 * Kelley Hinson PTA - 02/20/2024 3:32 [...] at that time Kelley Hinson PTA Pager: [phone] Physical Therapy Inpatient Rehab Department * Louisa [...] 0600 and on the weekends please page [phone]. * Maris Benavides, PT - 02/19/2024 11:22 [...] d/c for 10 days. 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 Precautions/Special Considerations: STERNAL [...] outlined inthis evaluation. MARIS BENAVIDES, PT Pager: [phone] Physical Therapy Inpatient Rehabilitation Department Time IN / OUT: 1797-0199 Total Time: 38 (eval) minutes; * Antonio [...] 0600 and on the weekends please page [phone]. * Minnie Begum PA - 02/18/2024 8:25 [...] on the weekends please page [phone]. * Kim Ha RCP - 02/17/2024 2:25 [...] plan since last visit. Hayder Graham MD [phone] Source Note - Hayder Graham MD - [...] given written informed consent. Hayder Graham MD [phone] * Hayder Graham MD - 02/17/2024 7:00 [...] given written informed consent. Hayder Graham MD [phone] documented in this encounter Miscellaneous Notes * [...] for follow-up Home Health & Hospice, [address] [place] [address] Cardiac Rehab, [address] [place] [address] Transportation: family or friend will provide Functional status prior to admission: Independent Home Environment: Others in the home: alone. Current Living Arrangements: home/apartment/condo. Accessibility Concerns:a few steps to enter 1 floor home. Current Functional Ability: Assistive Person and Equipment DME used at home: none DME Needed at Discharge: N/A Patient is insured through: Primary Insurance: [employer] Payor: [facility] / Plan: [facility] PPO / Product Type: *No [...] pain managed with scheduled Tylenol. Worked with [employer]. Ambulated in the roque multiple times during [...] is insured through: Primary Insurance: [facility] Payor: [facility] / Plan: [facility] PPO / Product Type: *No Product type* / Secondary Insurance: N/A Last Physical Therapy Recommendation: home with home health (Str coming to stay for a week or two upon d/c) with to be determined (owns rolling walker, shower seat) Plan for discharge is: Home w/ Services Outpatient Agency/Support Group Needs: Homecare agency Home Health Services: Physical Therapy, Registered Nurse Agency Referrals: [facility] [address] [place] [address] Transportation: family or friend will provide Barriers to discharge: Discharge planning Plan going forward: Service Care Management will continue to follow and assist with discharge planning and coordination of care as indicated. Anticipated Date of Discharge: 02/22/2024 Rhett Bell RN RN/CM - Cellphone: [phone] Pager: [phone] Covering Service RN/CM * Plan of Care [...] RN - 02/19/2024 10:44 AM EDT [facility] Karlos Garcia was seen today regarding participation in the outpatient Phase 2 Cardiac Rehabilitation at [facility]. The patient agrees to a [...] Hypertension 08/14/2023 Nevus of face 09/26/2023 Right caodaism Hospitalizations Within the Past 30 Days: no previous admission in last 30 days Current Decision-Making Capacity: Self If AD's have not been completed the following surrogate would be surrogate decision maker per [place] surrogate decision making law. (Only good for 180 days) Any patient receiving care in [place] must abide by [place] law. The hierarchy [...] (i) The agent with financial power of herbicide sprayer or a conservator appointed in accordance with [...] In the past 12 months has the [employer], gas, oil, or water [employer] threatened to shut off services in [...] [address] [facility] [address] Physical address: [address] [facility], [address] Social & Family Supports: All names listed [...] noted Health/Prescription Coverage: Primary Insurance: [facility] Payor: [facility] / Plan: [facility] PPO / Product Type: *No Product type* / Secondary Insurance: N/A ; Prescription Coverage: Yes Preferred Pharmacy: [id number] [address] [place] Status: Patient is a : No Primary Care Provider confirmed: Aparna Jordan, MAURI [phone] Patient/Caregiver Goals of Treatment: dc to home Potential Needs for Transition of Care: home health care Agency Referrals: I have met with the patient to: discuss discharge planning needs. provide the [facility], Office of Care Management letter from the Paper Deliverer pertaining to rehab referrals. provide a letter describing our affiliations within the [facility] and educate about their right to choose where referrals are sent. provide a list of Home Health Agencies / Durable Medical Equipment vendors which serve their preferred geographic area. provided patient with [facility] Star Quality Rating handout. They have requested referrals to: [facility] [address] [place] [address] Note routed to a Chief Executive Or Managing Director who will communicate referrals to facilities and [...] Reina Greene RN CM, BSN, CMGT-BC Ext [phone] * Plan of Care - Binta Trinidad [...] Operative Note Patient Name: Karlos Garcia : [id number] MR#: [id number] Case Date: 02/17/2024 Surgeon: Surgeon(s) and Role: * Hayder Graham MD - Primary * Neftali Menon PA - Physician Mortgage Or Loan Underwriter Preoperative diagnosis: CAD Postoperative diagnosis: CAD, intraoperative [...] Mediastinal and Left pleural Disposition: [facility] Condition: doing well without problems Attestation: Case Date: 02/17/2024 I performed this procedure without the involvement of a resident. HAYDER GRAHAM MD 02/17/2024 * Op Note - Hayder Graham MD - 02/17/2024 8:20 AM EDT [facility] Operative Note Patient Name: Karlos Garcia : [id number] MR#: [id number] Case Date: 02/17/2024 Surgeon: Surgeons and Role: * Hayder Graham MD - Primary * Neftali Menon PA - Physician Mortgage Or Loan Underwriter Preoperative diagnosis: CAD Postoperative diagnosis: CAD, intraoperative [...] Mediastinal and Left pleural Disposition: [facility] Procedure Description: The patient was [...] Aortic Valve Open W Cardiopulmonary Bypass Homogrf/Stent (83177) Yes 02/17/2024 7:28 AM EDT CAD Cabg, Artery-Vein, Two (28542) Yes 02/17/2024 7:28 AM EDT CAD Cabg, Arterial, Single (00310) Yes 02/17/2024 7:28 AM EDT CAD Endoscopy W/Video-Asst Vein [place], Cabg (48937) Yes 02/17/2024 7:28 AM EDT CAD POCT [...] MD CHEMISTRY ORDERABLE S [facility] [place] [address] * (ABNORMAL) Basic Metabolic Panel (non-fasting) (02/23/2024 [...] MD CHEMISTRY ORDERABLES Performing Organization Address [facility] Co de Phone Number [facility] [place] [address] * Potassium (02/22/2024 4:30 AM EDT) Potassium [...] CHEMISTRY ORDERABLE S Performing Organization Address [facility] Co de Phone Number [facility] [place] [address] * (ABNORMAL) Basic Metabolic Panel (non-fasting) (02/21/2024 [...] - 31 [facility] Comment:Add-on request. Samp le too [...] Carpio MD CHEMISTRY ORDERABLES [facility] [place] [address] * Lactate, whole blood, send to lab ([facility]) (02/21/2024 9:45 AM EDT) Lactate WB 2.0 0.5 - 2.2 mmol/L [facility] Blood 02/21/2024 9:45 AM EDT 02/21/2024 9:52 AM EDT Narrative Resulting Agency Comment Spec In Lab Hayder Graham MD CHEMISTRY ORDERABLE S Performing Organization Address City/[facility]/ZIP Co de Phone Number [facility] [place] [address] * (ABNORMAL) Hepatic Function Panel (02/21/2024 9:45 [...] MD CHEMISTRY ORDERABLE S Performing Organization Address City/[facility]/ZIP Co de Phone Number [facility] [place] [address] * Lipase (02/21/2024 9:45 AM EDT) Pathologist [facility] Lipase 56 0 - 60 unit/L [facility] Blood 02/21/2024 9:45 AM EDT 02/21/2024 9:52 AM EDT Narrative Resulting Agency Comment Spec In Lab Hayder Graham MD CHEMISTRY ORDERABLE S Performing Organization Address [facility] Co de Phone Number [facility] [place] [address] * Amylase (02/21/2024 9:45 AM EDT) Amylase 69 28 - 100 unit/L [facility] Blood 02/21/2024 9:45 AM EDT 02/21/2024 9:52 AM EDT Narrative Resulting Agency Comment Spec In Lab Hayder Graham MD CHEMISTRY ORDERABLE S Performing Organization Address [facility] de Phone Number [facility] [place] [address] * Potassium (02/21/2024 3:08 AM EDT) Pathologist [facility] Potassium 3.8 3.5 - 5.0 mmol/L [facility] [...] CHEMISTRY ORDERABLE S Performing Organization Address [facility] Co de Phone Number [facility] [place] [address] * XR Chest PA & Lateral (Generic) (02/20/2024 10:19 AM EDT) WORKSTATION ID [id number] RAD Anatomical Region Laterality Modality Chest N/A Digital Radiogra phy Impressions 02/20/2024 1:11 PM EDT Small pleural effusions. No pneumothorax Thank you for letting us participate in the care of this patient. ??If you are a health care provider and have any questions regarding this report, please contact the number below. ??For patients who have questions please contact the health health care manager that requested your imaging first. ? Electronically signed by: Rogerio Cruz MD, [facility] ??([phone]), at 02/20/2024 1:11 PM Narrative 02/20/2024 1:11 PM EDT EXAMINATION: XR CHEST PA AND LATERAL (GENERIC) CLINICAL HISTORY: s/p AVR/CABGx3 TECHNIQUE: PA and lateral views of the chest COMPARISON: 02/17/2024 FINDINGS: Support devices: Interval removal of Tracy-Kaila catheter, endotracheal tube and mediastinal chest tubes The cardiac silhouette is stable status post median sternotomy, CABG and aortic valve replacement. There are small pleural effusions. No pneumothorax. Procedure Note Rogerio Cruz MD - 02/20/2024 EXAMINATION: XR CHEST PA AND LATERAL (GENERIC) CLINICAL HISTORY: s/p AVR/CABGx3 TECHNIQUE: PA and lateral views of the chest COMPARISON: 02/17/2024 FINDINGS: Support devices: Interval removal of Tracy-Kaila catheter, endotracheal tubeand mediastinal chest tubes The [...] have questions please contactthe health health care manager that requested your imaging first. Hayder Graham MD IMG DX ORDERABLES * Scan, Peripheral Blood (02/20/2024 4:23 AM EDT) Plat estimate Decreased [facility] RBC Morphology Normal [facility] Blood 02/20/2024 4:23 AM EDT 02/20/2024 4:42 AM EDT Narrative Resulting Agency Comment Spec In Lab Mninie FRENCH HEMATOLOGY CECILIO ALEMAN [facility] [place] [address] * (ABNORMAL) Differential, Automated (02/20/2024 4:23 AM EDT) Pathologist [facility] Neutrophil % 81.7 % [facility] Neutrophil Absolute 10.37(H) 1.70 - 6.10 x10(3)/mc L [facility] Lymph % 7.4 % [facility] Lymphocytes Abs 0.9 0.9 - 3.2 x10(3)/mc L [facility] Monocyte % 9.7 % [facility] Monocyte Abs 1.2(H) 0.3 - 0.9 x10(3)/mc L [facility] Eos % 0.1 % [facility] Eosinophils Abs 0.0 0.0 - 0.4 x10(3)/mc L [facility] Basophil % 0.2 % [facility] Baso Absolute 0.0 0.0 - [...] FRENCH HEMATOLOGY CECILIO ALEMAN [facility] [place] [address] * (ABNORMAL) Hemogram (02/20/2024 4:23 AM EDT) White Blood Cell 12.7(H) 4.0 - 9.5 x10(3)/[facility] LABORATORY Red Blood Cell 4.26(L) 4.58 - 5.54 x10(6)/[facility] LABORATORY Hemoglobin 12.3(L) 13.7 - 16.5 g/dL [facility] Hematocrit 37.1(L) 40.5 - 48.5 % [facility] Mean Cell Volume 87.1 82.9 - 93.1 [facility] LABORATORY Mean Cell Hemoglobin 28.9 27.5 - 32.1 pg [facility] Mean Cell Hemoglobin Concentration 33.2 32.0 - 35.7 g/dL [facility] Platelet 88(L) 145 - 357 x10(3)/[facility] LABORATORY RDW Standard Deviation 43.5 36.0 - 45.0 [facility] LABORATORY RDW coefficient of variation 13.7 11.4 - 13.8 % [facility] Mean Platelet Volume 10.2 7.6 - 12.9 [facility] LABORATORY NRBC% auto 0.0 % [facility] NRBC Absolute 0.000 0.000 - 0.000 x10(3)/ L [facility] Blood 02/20/2024 4:23 AM EDT 02/20/2024 4:42 AM EDT Narrative Resulting Agency Comment Spec In Lab Minnie FRENCH HEMATOLOGY CECILIO ALEMAN [facility] [place] [address] * (ABNORMAL) Basic Metabolic Panel (non-fasting) (02/20/2024 [...] MD CHEMISTRY ORDERABLE S Performing Organization Address City/[facility]/ZIP Co de Phone Number [facility] [place] [address] * Potassium (02/19/2024 3:57 AM EDT) Potassium [...] CHEMISTRY ORDERABLE S Performing Organization Address [facility] Co de Phone Number [facility] [place] [address] * POCT Glucose (02/18/2024 8:24 AM EDT) Glucose, POC 157 65 - 199 mg/dL [facility] Comment: Supplemental ranges: <140 mg/dL before meals <180 mg/dL all other times of the day Blood 02/18/2024 8:24 AM EDT 02/18/2024 8:24 AM EDT Hayder Graham MD POINT OF CARE TEST ORDERABLES Performing Organization Address [facility]/ZIP Co de Phone Number [facility] [place] [address] * Scan, Peripheral Blood (02/18/2024 1:40 AM EDT) Plat estimate Decreased [facility] RBC Morphology Normal [facility] Blood 02/18/2024 1:40 AM EDT 02/18/2024 1:56 AM EDT Narrative Resulting Agency Comment Spec In Lab Neftali FRENCH HEMATOLOGY ORDER OLE [facility] [place] [address] * (ABNORMAL) Differential, Automated (02/18/2024 1:40 AM EDT) Neutrophil % 87.1 % [facility] Neutrophil Absolute 15.03(H) 1.70 - 6.10 x10(3)/mc L [facility] Lymph % 3.0 % [facility] Lymphocytes Abs 0.5(L) 0.9 - 3.2 x10(3)/mc L [facility] Monocyte % 9.1 % [facility] Monocyte Abs 1.6(H) 0.3 - 0.9 x10(3)/mc L [facility] Eos % 0.0 % [facility] Eosinophils Abs 0.0 0.0 - 0.4 x10(3)/mc L [facility] Basophil % 0.2 % [facility] Baso Absolute 0.0 0.0 - [...] FRENCH HEMATOLOGY ORDER OLE [facility] [place] [address] * (ABNORMAL) Hemogram (02/18/2024 1:40 AM EDT) [...] Standard Deviation 39.9 36.0 - 45.0 fL [facility] RDW coefficient of variation 13.2 11.4 - 13.8 % [facility] Mean Platelet Volume 9.9 7.6 - 12.9 fL [facility] NRBC% auto 0.0 % [facility] NRBC Absolute 0.000 0.000 - 0.000 x10(3)/mc L [facility] Blood 02/18/2024 1:40 AM EDT 02/18/2024 1:56 AM EDT Narrative Resulting Agency Comment Spec In Lab Neftali FRENCH HEMATOLOGY ORDER OLE [facility] [place] [address] * (ABNORMAL) Basic Metabolic Panel (non-fasting) (02/18/2024 [...] MD CHEMISTRY ORDERABLE S [facility] [place] [address] * (ABNORMAL) Troponin (02/18/2024 1:40 AM EDT) [...] can be found in the [facility] Laboratory Test Catalog Troponin - [facility] Laboratory Test Catalog Reference: Fourth Hopkins Definition of Myocardial Infarction. Journal of the [place] [employer] 2018;72:5806-6419 Blood 02/18/2024 1:40 AM EDT 02/18/2024 1:56 AM EDT Narrative Resulting Agency Comment Spec In Lab Hayder Graham MD CHEMISTRY ORDERABLE S [facility] [place] [address] * POCT Glucose (02/17/2024 8:13 PM EDT) Glucose, POC 142 65 - 199 mg/dL [facility] Comment: Supplemental ranges: <140 mg/dL before meals <180 mg/dL all other times of the day Blood 02/17/2024 8:13 PM EDT 02/17/2024 8:13 PM EDT Haydre Graham MD POINT OF CARE TEST ORDERABLES Performing Organization Address [facility] Co de Phone Number [facility] [place] [address] * POCT Glucose (02/17/2024 5:42 PM EDT) Glucose, POC 160 65 - 199 mg/dL [facility] Comment: Supplemental ranges: <140 mg/dL before meals <180 mg/dL all other times of the day Blood 02/17/2024 5:42 PM EDT 02/17/2024 5:42 PM EDT Hayder Graham MD POINT OF CARE TEST ORDERABLES Performing Organization Address [facility] Co de Phone Number [facility] [place] [address] * Hemoglobin (02/17/2024 5:42 PM EDT) [facility] Signature Hemoglobin 13.7 13.7 - 16.5 g/dL [facility] Blood 02/17/2024 5:42 PM EDT 02/17/2024 6:10 PM EDT Narrative Resulting Agency Comment Spec In Lab Hayder Graham MD HEMATOLOGY ORDERABL ES Performing Organization Address [facility] Co de Phone Number [facility] [place] [address] * Potassium (02/17/2024 5:42 PM EDT) [facility] Signature Potassium 4.3 3.5 - 5.0 mmol/L [facility] [...] MD CHEMISTRY ORDERABLE S [facility] [place] [address] * (ABNORMAL) BLOOD GAS 2 ARTERIAL (02/17/2024 [...] [facility] FIO2 Art 40 % [facility] PF Ratio Art 195 [facility] Blood 02/17/2024 4:18 PM EDT 02/17/2024 4:18 PM EDT Hayder Graham MD POINT OF CARE TEST ORDERABLES [facility] [place] [address] * XR Chest One View (02/17/2024 1:44 PM EDT) [facility] WORKSTATION ID [id number] DH RAD Anatomical Region Laterality Modality Chest N/A Digital Radiogra phy Impressions 02/17/2024 2:12 PM EDT 1. ??No definite pleural fluid collection or pneumothorax. 2. ??Right IJ Tracy-Kaila catheter tip terminates in a descending branch [...] questions please contact the health health care manager that requested your imaging first. ? Electronically signed by: Denzel Hankins MD, [facility] ??([phone]), at 02/17/2024 2:12 PM Narrative 02/17/2024 2:12 PM EDT EXAMINATION: XR CHEST ONE VIEW CLINICAL HISTORY: s/p avr/cabg eval effusions TECHNIQUE: 1 view of the chest COMPARISON: Chest x-ray 01/09/2024, chest CT 02/03/2024 FINDINGS: ET tube tip terminates 5.2 cm above the carlos. Right IJ Tracy-Kaila catheter tip terminates in a descending branch [...] 5.2 cm above the carlos. Right IJ Tracy-Ganzcatheter tip terminates in a descending branch of [...] fluid collection or pneumothorax. 2. Right IJ Tracy-Kaila catheter tip terminates in a descending branch ofthe right pulmonary artery. Suggest catheter retraction. 3. Additional support lines and tubes as above. Thank you for letting us participate in the care of this patient. If youare a health care provider and have any questions regarding this report,please contact the number below. For patients who have questions please contactthe health health care manager that requested your imaging first. Electronically signed by: Denzel Hankins MD, [facility]([phone]), at 02/17/2024 2:12 PM Hayder Graham MD [...] [facility] FIO2 Art 100 % [facility] PF Ratio Art 320 [facility] Blood 02/17/2024 1:31 PM EDT 02/17/2024 1:31 PM EDT Hayder Graham MD POINT OF CARE TEST ORDERABLES [facility] [place] [address] * (ABNORMAL) Coox2 (02/17/2024 1:21 PM EDT) [...] OF CARE TEST ORDERABLES Performing Organization Address City/[facility]/ZIP Co de Phone Number [facility] [place] [address] * (ABNORMAL) BLOOD GAS 2 ARTERIAL (02/17/2024 [...] CARE TEST ORDERABLES Performing Organization Address [facility] Co de Phone Number [facility] [place] [address] * (ABNORMAL) Fibrinogen (02/17/2024 12:10 PM EDT) [...] HEMATOLOGY ORDERABLE S Performing Organization Address [facility] Co de Phone Number [facility] [place] [address] * (ABNORMAL) Thrombin time (02/17/2024 12:10 PM [...] HEMATOLOGY ORDERABLE S Performing Organization Address [facility] Co de Phone Number [facility] [place] [address] * APTT (02/17/2024 12:10 PM EDT) Partial [...] HEMATOLOGY ORDERABLE S Performing Organization Address [facility] Co de Phone Number [facility] [place] [address] * (ABNORMAL) Prothrombin Time (02/17/2024 12:10 PM [...] MD HEMATOLOGY ORDERABLE S [facility] [place] [address] * (ABNORMAL) Hemogram (02/17/2024 12:10 PM EDT) [...] [facility] NRBC% auto 0.0 % [facility] NRBC Absolute 0.000 0.000 - 0.000 x10(3)/mc L [facility] Blood 02/17/2024 12:1 0 PM EDT 02/17/2024 12:19 PM EDT Narrative Resulting Agency Comment Spec In Lab Tara York MD HEMATOLOGY ORDERABLE S [facility] [place] [address] * (ABNORMAL) BLOOD GAS 2 ARTERIAL (02/17/2024 [...] mmol/L [facility] Comment: Noted by medical or surgical instrument maker. Please note: Patients with WBC [...] OF CARE TEST ORDERABLES [facility] [address] [address] * (ABNORMAL) BLOOD GAS 2 ARTERIAL (02/17/2024 [...] mmol/L [facility] Comment: Noted by medical or surgical instrument maker. Please note: Patients with WBC [...] CARE TEST ORDERABLES Performing Organization Address [facility] de Phone Number [facility] [place] [address] * (ABNORMAL) Hemoglobin and Hematocrit, blood (02/17/2024 11:04 AM EDT) Hemoglobin 9.6(L) 13.7 - 16.5 g/dL [facility] [...] HEMATOLOGY ORDERABL ES Performing Organization Address [facility] de Phone Number [facility] [place] [address] * (ABNORMAL) Platelet count (02/17/2024 11:04 AM EDT) Platelet 106(L) 145 - 357 x10(3)/mc L [facility] Immature Plt % 1.6 0.0 - 7.4 % [facility] Comment: Limitation of the Immature Platelet Fraction (IPF)-May be less reliable when the platelet count is less than 52o826/uL due to statistical imprecision. The IPF value [...] in a decreased state of production. References: [employer] The Clinical Value of the Immature Platelet Fraction (IPF) in Cell Recovery Document Number 10-1143 03/2011 [employer] The Role of the Immature Platelet Fraction (IPF) in the Differential Diagnosis of Thrombocytopenia, Document MKT-[id number] V002/15/14 Blood 02/17/2024 11:0 4 AM EDT 02/17/2024 11:12 AM EDT Narrative Resulting Agency Comment Spec In Lab Hayder Graham MD HEMATOLOGY ORDERABL ES Performing Organization Address City/[facility]/ZIP Co de Phone Number [facility] [place] [address] * (ABNORMAL) Fibrinogen (02/17/2024 11:04 AM EDT) [...] MD HEMATOLOGY ORDERABL ES Performing Organization Address City/[facility]/ZIP Co de Phone Number [facility] [place] [address] * (ABNORMAL) BLOOD GAS 2 ARTERIAL (02/17/2024 [...] CARE TEST ORDERABLES [facility] [place] [address] * (ABNORMAL) BLOOD GAS 2 ARTERIAL (02/17/2024 [...] [facility] Co de Phone Number [facility] [place] [address] * Surgical Pathology Report (02/17/2024 10:01 AM EDT) Final Diagnosis [id number] ? Location: [facility]; [facility] [place]; The signing pathologist has (i) examined the relevant preparation(s) for the specimen(s) and (ii) rendered or confirmed the diagnosis(es). . ?Surgical Pathology DIAGNOSIS Aortic valve leaflets, excision: Valve leaflets with myxoid degeneration, nodular fibrosis and dystrophic calcifications. Electronically signed by: ?Lindsay FERNANDEZ, Livier Gonzalez Verified: ??02/24/2024 13:49 ??Pathologist Performed at: ??-[facility] [place]. [place]ology, [place] [address] Paper Deliverer: Job Brewer MD, FCAP, ??CLIA Certificate: [id number] SPECIMEN(S) SUBMITTED A - Aortic Valve Leaflets, [...] Sections Processing Blocks submitted for decalcification: A1. Eyelet Riveter sections in 1 cassette labeled A1. ??ajw 02/24/2024 1:49 PM EDT [facility] AORTIC STRUCTURE / Unknown 02/17/2024 10:01 AM EDT 02/17/2024 10:01 AM EDT Hayder Graham MD PATHOLOGY/[place] [address] * Specimen to Pathology (02/17/2024 10:01 AM EDT) AP Specimen 02/17/2024 10:0 1 AM EDT 02/17/2024 10:01 AM EDT Narrative [facility] - 02/17/2024 10:01 AM EDT Specimen requisition ordered. ??Separate Pathology report to follow Hayder Graham MD PATHOLOGY/CYTOLOGY ORDERABLES [facility] [place] [address] * (ABNORMAL) BLOOD GAS 2 ARTERIAL (02/17/2024 [...] OF CARE TEST ORDERABLES [facility] [place] [address] * (ABNORMAL) BLOOD GAS 2 VENOUS (02/17/2024 9:34 AM EDT) pH, Venous 7.22(Criti marquez) 7.32 - 7.42 [facility] Comment:Noted by medical or surgical instrument maker. PCO2, Venous 43 41 - 51 mmHg [facility] Comment:Noted by medical or surgical instrument maker. PO2, Venous 57(H) 25 - 40 mmHg [facility] Comment:Noted by medical or surgical instrument maker. Bicarbonate, Venous 17.1 mmol/L [facility] Comment:Noted by medical or surgical instrument maker. Base Excess, Venous -10.6 mmol/L [facility] Comment:Noted by medical or surgical instrument maker. Hgb Blood Gas 11.2(L) 13.7 - 16.5 g/dL [facility] Comment:Noted by medical or surgical instrument maker. Oxyhemoglobin, Venous 86.5 % [facility] Comment:Noted by medical or surgical instrument maker. Carboxyhemoglob in, Venous 0.3 % [facility] Comment: Noted by medical or surgical instrument maker. Nonsmokers: 0.5-1.5% COHB Smokers: Variable, but usually less than 10% Toxic: 20-30% COHB Lethal: Greater than 60% COHB Methemoglobin, Venous 0.0 <=1.5 % [facility] Comment:Noted by medical or surgical instrument maker. Na Whole Blood 156(H) 135 - 145 mmol/L [facility] Comment:Noted by medical or surgical instrument maker. K Whole Blood 5.5(H) 3.5 - 5.0 mmol/L [facility] Comment: Noted by medical or surgical instrument maker. Please note: Patients with WBC >100,000 may have falsely elevated Potassium levels. Contact the Clinical Chemistry Laboratory if there are any questions. ICa Whole Blood 1.03(L) 1.15 - 1.33 mmol/L [facility] Comment: Noted by medical or surgical instrument maker. Note: ??Total bilirubin higher than 20 mg/dL may lead to falsely low ionized calcium. CL Whole Blood 100 98 - 107 mmol/L [facility] Comment:Noted by medical or surgical instrument maker. Gluc Whole Bld 132 65 - 199 mg/dL [facility] Comment: Noted by medical or surgical instrument maker. Diabetes: >=200 mg/dL plus symptoms Lactate WB 1.0 0.5 - 2.2 mmol/L [facility] Comment:Noted by medical or surgical instrument maker. Blood Gas Source Venous [facility] Blood 02/17/2024 9:34 AM EDT 02/17/2024 9:34 AM EDT Hayder Graham MD POINT OF CARE TEST ORDERABLES [facility] [place] [address] * (ABNORMAL) BLOOD GAS 2 ARTERIAL (02/17/2024 [...] OF CARE TEST ORDERABLES Performing Organization Address City/[facility]/ZIP Co de Phone Number [facility] [place] [address] * POCT Glucose (02/17/2024 6:38 AM EDT) Glucose, POC 98 65 - 199 mg/dL [facility] Comment: Supplemental ranges: <140 mg/dL before meals <180 mg/dL all other times of the day Blood 02/17/2024 6:38 AM EDT 02/17/2024 6:38 AM EDT Hayder Graham MD POINT OF CARE TEST ORDERABLES Performing Organization Address [facility] Co de Phone Number [facility] [place] [address] * Transesophageal Echo/OR (02/17/2024 6:33 AM EDT) [...] [facility]-operative [facility] of cardiac function [...] Crook RN) 0430 (Given - Provider: Otis Corok RN) apixaban (Eliquis) tablet 5 mg 5 [...] Routine documented in this encounter Care Teams Bargeman Relationship Specialty Start Date End Date Aparna Jordan APRN PCP - General Family Medicine 10/21/23 05/26/24 documented as of this encounter
--- OUTSIDE RECORDS SUMMARY | 2024-08-18 10:08 | XMS_ITS | Encounter Summary ---
Author Organization [facility] Address [facility] [place] [address] Care Team Providers Care Loss Prevention Agent Name Role Phone Vanessa Christian MAURI Primary Care Provider [phone] Encounter Details Date Type Department Care Team (Late st Contact Info) Description 02/14/2024 Orders [place] [phone] Zak Farmer MD [facility] DR [place]OTH[place]AC[place] [address] Coronary artery disease, unspecified vessel or lesion type, unspecified whether angina present, unspecified whether [place] or transplanted heart (Primary Dx) Social History [...] (Bezet) 401 ms MUSE SYSTEM Calculated P Alma -12 degrees MUSE SYSTEM Calculated R Alma 24 degrees MUSE SYSTEM Calculated T Alma 74 degrees MUSE SYSTEM INTERPRETATION Sinus bradycardia T wave abnormality, consider anterior ischemia Abnormal ECG When compared with ECG of 17-FEB-2024 13:24, LA interval has decreased T wave inversion now evident in Anterior leads Confirmed by Paul Guzman ([id number]) on 03/15/2024 8:36:23 AM MUSE SYSTEM 03/12/2024 2:35 PM EDT 03/15/2024 8:36 AM EDT Zak Farmer MD ECG ORDERABLES MUSE SYSTEM * XR Chest PA & Lateral (Generic) (03/12/2024 1:42 PM EDT) Pathologist [facility] WORKSTATION ID [id number] [facility] Anatomical Region Laterality Modality Chest [...] eval effusions I25.10, Atherosclerotic heart disease of [place] coronary artery without angina pectoris TECHNIQUE: PA [...] eval effusions I25.10, 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
--- OUTSIDE RECORDS SUMMARY | 2024-08-18 10:08 | XMS_ITS | Encounter Summary ---
Author Organization [facility] [place] [address] Care Team Providers Care Computer Tech Name Role Phone Vanessa Christian MAURI Primary Care Provider [phone] Reason for Visit * Auth/Cert (Routine) Specialty [...] ARTERIAL GRAFT (WRVU 7.93) Zak Farmer MD [facility] C[place]AC[place] [address] [facility] Referral ID Status Reason Start Date Expiration Date Visits Re quested Visits Authorized [id number] 1 1 Encounter Details Date Type Department Care Team (Late st Contact Info) Description 02/17/2024 7:35 AM EDT Anesthesia Event Main Operating Room [facility] [place] [phone] Roman York MD [facility] [place] [address] Anesthesia Record Procedure Summary Procedure Name Responsible [...] by Sadiq Woo RN PIV 02/17/24; 0715; [id number] catheter system; 18 gauge; cephalic vein (lateral [...] oz pur e alcohol) rare [facility] Utilities Answer Date Recorded In the past 12 months has th e electric, gas, oil, or water [employer] threatened to shut off services in [...] Room / Location: [facility] OR [address] [place] [address] MAIN OR Anesthesia Start: 734 Anesthesia Stop: [...] shown include unfiled device data. Patient Location: [facility] Level of Consciousness: Sedated (Pharmacologic/Intentional) [...] 08/14/2023 ??? Nevus of face 09/26/2023 Right confucianism No past surgical history on file. Social [...] mg documented in this encounter Care Teams Computer Tech Relationship Specialty Start Date End Date Vanessa Christian APRN PCP - General Family Medicine 10/21/23 05/26/24 documented as of this encounter
--- OUTSIDE RECORDS SUMMARY | 2024-08-18 10:08 | XMS_ITS | Encounter Summary ---
[place] [address] Care Team Providers Care Mailroom Coordinator Name Role Phone Aparna Jordan MAURI Primary Care Provider [phone] Reason for Referral * Diagnostic Test (Routine) - New Request Specialty Diagnoses / Procedures Referred By Contac t Referred To Contact Cardiology Diagnoses S/P AVR Procedures Echocardiogram Transthoracic Neftali Menon PA [facility] [place] [address] [facility] [place] [address] Referral ID Status Reason Start Date Expiration Date Visits Requested Visits Authorized [id number] New Request Specialty Service Requested 02/24/2024 02/23/2025 1 1 * Consultation (Routine) - Authorized Specialty Diagnoses / Procedures Referred By Contac t Referred To Contact Cardiology Diagnoses S/P AVR Hayder Graham MD [facility] [place] [address] Cardiac Rehab, [facility] [address] [place] [address] [place] [address] Referral ID Status Reason Start Date Expiration Date Visits Requested Visits Authorized [id number] Authorized Consult, Test & Treat 02/24/2024 08/22/2024 36 36 * Home Health Care (Routine) - Authorized Specialty Diagnoses / Procedures Referred By Sixto mendoza Referred To Contact Diagnoses S/P AVR Hayder Graham MD [facility] [place] [address] Referral ID Status Reason Start Date Expiration Date Visits Requested Visits Authorized [id number] Authorized Consult, Test & Treat 02/24/2024 08/22/2024 [...] (WRVU 7.93) Hayder Graham MD [facility] [place] [address] [facility] Referral ID Status Reason Start Date Expiration Date Visits Re quested Visits Authorized [id number] 1 1 Encounter Details Date Type Department Care Team (Latest Contact Info) Description 02/17/2024 5:43 AM EDT - 02/24/2024 11:23 AM EDT Hospital Encounter Heart and Vascular Unit Level 4 [place] [address] Hayder Graham MD [facility] [place] [address] S/P AVR (Primary Dx); Aortic valve stenosis, [...] Patient Age: 63 y.o. Birthdate: 1960 Language: Emirati Race: White Ethnicity: Not nor Admit Date: 02/17/2024 Discharge Date: 02/24/24 Attending Physician: Hayder Graham MD Follow-up Recommendations for Providers: Please continue routine management of cardiovascular risk factors including blood pressure, lipids,glucose, etc. Please note any changes to medications. Patient to follow up with PCP, Aparna Jordan APRN, in 1-2 weeks. Patient to follow up with Tire Room Supervisor, Neftali Ernandez MD , in 2 weeks. Patient to follow up with Cardiac Surgeon, Dr. Hayder Graham, with a chest x-ray, EKG, and Echo. Inpatient Provider Contact Information: 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/26/2023 Right yarsani Past Surgical History: Procedure Laterality Date PRO CABG, ARTERIAL, SINGLE N/A 02/17/2024 @CABG, USING ARTERIAL GRAFT;SINGLE ARTERIAL GRAFT (WRVU 33.75) performed by Hayder Graham MD at [facility] MAIN OR PRO CABG, ARTERY-VEIN, TWO N/A 02/17/2024 @CABG, TWO VENOUS GRAFTS & ARTERIAL GRAFT (WRVU 7.93) performed by Hayder Graham MD at [facility] MAIN OR PRO ENDOSCOPY W/VIDEO-ASST VEIN HARVEST, CABG Left 02/17/2024 ENDOSCOPIC HARVEST VEIN(S) FOR CABG (WRVU 0.31) performed by Hayder Graham MD at [facility] MAIN OR PRO REPLACEMENT PROSTHETIC AORTIC VALVE OPEN W CARDIOPULMONARY BYPASS HOMOGRF/STENT N/A 02/17/2024 @REPLACE AORTIC VALVE, OPEN, W\CPB, W\PROSTHETIC VALVE (WRVU 41.32) performed by Hayder Graham MD at [facility] MAIN OR Prior To [...] insufficiency. He has glaucoma. He used to [email or web address] until about 15 years ago. He has [...] Hayder Graham and/or the Cardiac Surgery Physician Roving Department Supervisor Team may be reached at . [...] to the card with the [place] Heart Association Guidelines for more information. You [...] Dr. Hayder Graham. You may use a Rubicon Track or treadmill but avoid any pulling [...] friends, go to a movie, go to yarsanism, etc. Heavy activities: No hunting, skiing, jogging, [...] a low fat, low cholesterol, [place] Heart Association Diet. Driving: No driving until [...] while being managed by your PCP and/or Tire Room Supervisor. For future medication refills, please refer to your PCP and/or Tire Room Supervisor after your discharge from our service. Thank you REMOVE CHEST TUBE SUTURES ON OR AFTER 03/02/24 Home oxygen therapy: N/A Follow up appointments: You should follow up with your PCP, Aparna Jordan APRN, in 1-2 weeks. Our office will schedule an appointment with your Tire Room Supervisor, Neftali Ernandez MD , in 2 weeks. You have an appointment with your Cardiac Surgeon, Dr. Hayder Graham, 4 weeks with a chest x-ray, EKG, and Echo before your appointment. Cardiac Rehabilitation: Karlos Garcia was seen regarding participation in the outpatient Phase 2Cardiac Rehabilitation at [facility]. The patient agrees to a referral to this program. The referral will be sent at discharge and the patient should be contacted by the Program within 1- 2 weeks from discharge. Future Appointments and Orders Future Orders Complete By Expires Echocardiogram Transthoracic [22423 CPT(R)] 03/26/2024 09/25/2024 Process Instructions: Scheduling Instructions: Questions: Where will study be performed?: [facility] Does the patient have Congenital Heart Disease?: Does patient require sedation?: Sedation rationale: XR Chest PA & Lateral (Generic) [03804 94970 Custom] 03/26/2024 09/25/2024 Process Instructions: Scheduling Instructions: Questions: Portable exam?: Reason for exam and clinical history: s/p avr/cabg Clinical information / jerome questions for radiologist: Stat read required?: Date of injury if applicable: Requested Time: Where will study be performed?: [facility] Radiology Referral to Cardiac Rehab [[id number] Custom] As directed Process Instructions: If no progress note charted, please enter Clinical details in comments. Scheduling Instructions: Questions: My question or request is: s/p AVR/CABG. Cardiac rehab at [facility]. Referral to Home Health [REF34 Custom] As directed Process Instructions: If no progress note charted, please enter Clinical details in comments. Scheduling Instructions: Comments: Please evaluate Karlos Garcia for admission to Home Health. [address] Phone Number: Date of : 1960 Inpatient DOCUMENTATION FOR VNA SERVICES (INCLUDING THOSE PATIENTS WITH MEDICARE COVERAGE REQUIRING HOME VNA SERVICES AND/OR HOSPICE SERVICES) PATIENT'S LOCATION: Karlos Garcia [address] [email or web address] [phone] Education General Manager's Name: self/family In discussion with the attending physician, it is certified that this patient is under their care and that they, or a Nurse Practitioner, or Physician Roving Department Supervisor who is working directly with them, [...] for services as follows: HOME HEALTH AGENCY: [facility] [address] [place] [address] RN orders: Cardiopulmonary assessment, incisional assessment, assess [...] issues please call the Cardiology Office at [phone] FOR MEDICARE ONLY: (please delete this section [...] APRN [address] / [place] [address] . All VNA agencies which cover the area of patient's residence have been reviewed, either verbally or in writing, and patient/family have chosen the home health care agency noted. Questions: Disciplines Requested: Nursing Physical Therapy Arrangements for VNA/home care: As above. Signed: NEFTALI MENON PA-C [facility] Section of Cardiac Surgery [facility] [place] [address] FAX [phone] Date: 02/24/2024 CC: Aparna Jordan, MAURI Jordan, Aparna Sherman APRN [address] [place] [address] documented in this encounter Discharge Instructions * [...] Hayder Graham and/or the Cardiac Surgery Physician Roving Department Supervisor Team may be reached at . [...] to the card with the [place] Heart Association Guidelines for more information. You [...] Dr. Hayder Graham. You may use a Rubicon Track or treadmill but avoid any pulling [...] friends, go to a movie, go to yarsanism, etc. Heavy activities: No hunting, skiing, jogging, [...] a low fat, low cholesterol, [place] Heart Association Diet. Driving: No driving until [...] while being managed by your PCP and/or Tire Room Supervisor. For future medication refills, please refer to your PCP and/or Tire Room Supervisor after your discharge from our service. Thank you REMOVE CHEST TUBE SUTURES ON OR AFTER 03/02/24 Home oxygen therapy: N/A Follow up appointments: You should follow up with your PCP, Aparna Jordan APRN, in 1-2 weeks. Our office will schedule an appointment with your Tire Room Supervisor, Neftali Ernandez MD , in 2 weeks. You have an appointment with your Cardiac Surgeon, Dr. Hayder Graham, 4 weeks with a chest x-ray, EKG, and Echo before your appointment. Cardiac Rehabilitation: Karlos Garcia was seen regarding participation in the outpatient Phase 2Cardiac Rehabilitation at [facility]. The patient agrees to a referral [...] 0600 and on the weekends please page [phone]. * Eric Barahona PA - 02/23/2024 9:27 [...] 0600 and on the weekends please page [phone]. * Tiffanie Owens PTA - 02/22/2024 2:48 [...] d/c for 10 days. 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 * Kelley Hinson, PRODUCER ARBORIST MANAGER - 02/21/2024 10:15 AM EDT Physical [...] d/c for 10 days. 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 * Kelley Hinson PTA - 02/20/2024 3:32 PM EDT 02/20/24 1531 Evaluation & Treatment Document Type contact Total Minutes, Physical Therapy 0 Comment, Session Not Performed Checked in w/ pt this PM for ongoing PT services, pt politely declined, stating he had been dealing w/ nausea all day, made plan to see him tomorrow morning, will f/u at that time Kelley Hnison PTA Pager: [phone] Physical Therapy Inpatient Rehab Department * Louisa [...] 0600 and on the weekends please page [phone]. * Maris Benavides, PT - 02/19/2024 11:22 [...] d/c for 10 days. 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 Precautions/Special Considerations: [...] outlined inthis evaluation. MARIS BENAVIDES, PT Pager: [phone] Physical Therapy Inpatient Rehabilitation Department Time IN / OUT: 9973-6233 Total Time: 38 (eval) minutes; * Antonio [...] 0600 and on the weekends please page [phone]. * Minnie Begum PA - 02/18/2024 8:25 [...] 0600 and on the weekends please page [phone]. * Kim Ha RCP - 02/17/2024 2:25 [...] plan since last visit. Hayder Graham MD [phone] Source Note - Hayder Graham MD - [...] insufficiency. He has glaucoma. He used to [email or web address] until about 15 years ago. He has [...] given written informed consent. Hayder Graham MD [phone] * Hayder Graham MD - 02/17/2024 7:00 [...] given written informed consent. Hayder Graham MD [phone] documented in this encounter Miscellaneous Notes * [...] for follow-up Home Health & Hospice, [address] [place] [address] Cardiac Rehab, [address] [place] [address] Transportation: family or friend will provide Functional status prior to admission: Independent Home Environment: Others in the home: alone. Current Living Arrangements: home/apartment/condo. Accessibility Concerns:a few steps to enter 1 floor home. Current Functional Ability: Assistive Person and Equipment DME used at home: none DME Needed at Discharge: N/A Patient is insured through: Primary Insurance: [employer] Payor: [facility] / Plan: [facility] PPO / Product Type: [...] pain managed with scheduled Tylenol. Worked with [employer]. Ambulated in the roque multiple times during [...] anticipated Patient is insured through: Primary Insurance: [employer] Payor: [facility] / Plan: [facility] PPO / Product Type: [...] Services: Physical Therapy, Registered Nurse Agency Referrals: [facility]. [address] [place] [address] Transportation: family or friend will provide Barriers to discharge: Discharge planning Plan going forward: Service Care Management will continue to follow and assist with discharge planning and coordination of care as indicated. Anticipated Date of Discharge: 02/22/2024 Rhett Bell RN RN/CM - Cellphone: [phone] Pager: [phone] Covering Service RN/CM * Plan of Care [...] RN - 02/19/2024 10:44 AM EDT [facility] CARDIAC REHABILITATION Karlos Garcia was seen today regarding participation in the outpatient Phase 2 Cardiac Rehabilitation at [facility]. The patient agrees to a referral [...] as Appropriate) * Initial Assessments - Reina rGeene RN - 02/18/2024 4:03 PM EDT Office [...] Hypertension 08/14/2023 Nevus of face 09/26/2023 Right yarsani Hospitalizations Within the Past 30 Days: no previous admission in last 30 days Current Decision-Making Capacity: Self If AD's have not been completed the following surrogate would be surrogate decision maker per [place] surrogate decision making law. (Only good for 180 days) Any patient receiving care in [place] must abide by [place] law. The hierarchy [...] (i) The agent with financial power of cashier greeter or a conservator appointed in accordance with [...] In the past 12 months has the [employer], gas, oil, or water [employer] threatened to shut off services in your [...] [address] [facility] [address] Physical address: [address] [facility], [address] Social & Family Supports: All names listed [...] noted Health/Prescription Coverage: Primary Insurance: [facility] Payor: [facility] / Plan: [facility] PPO / Product Type: *No Product type* / Secondary Insurance: N/A ; Prescription Coverage: Yes Preferred Pharmacy: [id number] AT [address] [address] [place] Status: Patient is a : No Primary Care Provider confirmed: Aparna Jordan, HAND DEVELOPER [phone] Patient/Caregiver Goals of Treatment: dc to home Potential Needs for Transition of Care: home health care Agency Referrals: I have met with the patient to: discuss discharge planning needs. provide the [facility], Office of Care Management letter from the [employer] pertaining to rehab referrals. provide a letter describing our affiliations within the [facility] and educate about their right to choose where referrals are sent. provide a list of Home Health Agencies / Durable Medical Equipment vendors which serve their preferred geographic area. provided patient with [facility] Star Quality Rating handout. They have requested referrals to: [facility]. [address] [place] [address] Note routed to a Jig Hand who will communicate referrals to facilities [...] Reina Greene RN CM, BSN, CMGT- Ext [phone] * Plan of Care - Binta Trinidad [...] EDT Brief Operative Note Patient Name: Karlos Garica : [id number] MR#: [id number] Case Date: 02/17/2024 Surgeon: Surgeon(s) and Role: * Hayder Graham MD - Primary * Neftali Menon PA - Physician Roving Department Supervisor Preoperative diagnosis: CAD Postoperative diagnosis: CAD, [...] MD - 02/17/2024 8:20 AM EDT [facility] Operative Note Patient Name: Karlos Garcia : [id number] MR#: [id number] Case Date: 02/17/2024 Surgeon: Surgeons and Role: * Hayder Graham MD - Primary * Neftali Menon PA - Physician Roving Department Supervisor Preoperative diagnosis: CAD Postoperative diagnosis: CAD, [...] mL Drains: Mediastinal and Left pleural Disposition: [facility] Procedure Description: The patient was brought [...] Aortic Valve Open W Cardiopulmonary Bypass Homogrf/Stent (42496) Yes 02/17/2024 7:28 AM EDT CAD Cabg, Artery-Vein, Two (85927) Yes 02/17/2024 7:28 AM EDT CAD Cabg, Arterial, Single (07717) Yes 02/17/2024 7:28 AM EDT CAD Endoscopy W/Video-Asst Vein [place], Cabg (60874) Yes 02/17/2024 7:28 AM EDT CAD POCT [...] Lab Hayder Graham MD CHEMISTRY ORDERABLE S [facility] [address] * (ABNORMAL) Basic Metabolic Panel (non-fasting) (02/23/2024 [...] City/[facility]/ZIP Co de Phone Number [facility] [place] [address] * Potassium (02/22/2024 4:30 AM EDT) [facility] Potassium 3.5 3.5 - 5.0 mmol/L BARRE [...] MD CHEMISTRY ORDERABLE S Performing Organization Address City/[facility]/ZIP Co de Phone Number [facility] [place] [address] * (ABNORMAL) Basic Metabolic Panel (non-fasting) (02/21/2024 [...] LABORATORY Carbon Dioxide Not Perf 22 - [facility] Comment:Add-on request. Samp le too [...] City/[facility]/ZIP Co de Phone Number [facility] [place] [address] * Lactate, whole blood, send to lab ([facility] (02/21/2024 9:45 AM EDT) [facility] Lactate WB 2.0 0.5 - 2.2 mmol/L [facility] Blood 02/21/2024 9:45 AM EDT 02/21/2024 9:52 AM EDT Narrative Resulting Agency Comment Spec In Lab Hayder Graham MD CHEMISTRY ORDERABLE S Performing Organization Address [facility] [place]/[facility] Co de Phone Number [facility] [place] [address] * (ABNORMAL) Hepatic Function Panel (02/21/2024 9:45 AM EDT) [facility] Protein, Total 5.7(L) 6.1 - 8.0 [...] MD CHEMISTRY ORDERABLE S Performing Organization Address City/[facility]/ZIP Co de Phone Number [facility] [place] [address] * Lipase (02/21/2024 9:45 AM EDT) [facility] Lipase 56 0 - 60 unit/L [facility] Blood 02/21/2024 9:45 AM EDT 02/21/2024 9:52 AM EDT Narrative Resulting Agency Comment Spec In Lab Hayder Graham MD CHEMISTRY ORDERABLE S Performing Organization Address [facility] [place] Co de Phone Number [facility] [place] [address] * Amylase (02/21/2024 9:45 AM EDT) Amylase 69 28 - 100 unit/L [facility] Blood 02/21/2024 9:45 AM EDT 02/21/2024 9:52 AM EDT Narrative Resulting Agency Comment Spec In Lab Hayder Graham MD CHEMISTRY ORDERABLE S Performing Organization Address [facility] Phone Number [facility] [place] [address] * Potassium (02/21/2024 3:08 AM EDT) Potassium [...] Performing Organization Address [facility] [place] Co de Phone Number [facility] [place] [address] * XR Chest PA & Lateral (Generic) (02/20/2024 10:19 AM EDT) WORKSTATION ID [id number] DH RAD Anatomical Region Laterality Modality Chest [...] signed by: Rogerio Cruz MD, [facility] ??([phone]), at 02/20/2024 1:11 PM Narrative 02/20/2024 1:11 PM EDT EXAMINATION: XR CHEST PA AND LATERAL (GENERIC) CLINICAL HISTORY: s/p AVR/CABGx3 TECHNIQUE: PA and lateral views of the chest COMPARISON: 02/17/2024 FINDINGS: Support devices: Interval removal of Lockridge-Kaila catheter, endotracheal tube and mediastinal chest tubes The cardiac silhouette is stable status post median sternotomy, CABG and aortic valve replacement. There are small pleural effusions. No pneumothorax. Procedure Note Rogerio Cruz MD - 02/20/2024 EXAMINATION: XR CHEST PA AND LATERAL (GENERIC) CLINICAL HISTORY: s/p AVR/CABGx3 TECHNIQUE: PA and lateral views of the chest COMPARISON: 02/17/2024 FINDINGS: Support devices: Interval removal of Lockridge-Kaila catheter, endotracheal tubeand mediastinal chest tubes The [...] care assistant that requested your imaging first. Hayder Graham MD IMG DX ORDERABLES * Scan, Peripheral Blood (02/20/2024 4:23 AM EDT) Pathologist [facility] Plat estimate Decreased [facility] RBC Morphology Normal [facility] Blood 02/20/2024 4:23 AM EDT 02/20/2024 4:42 AM EDT Narrative Resulting Agency Comment Spec In Lab Minnie FRENCH HEMATOLOGY CECILIO ALEMAN [facility] [place] [address] * (ABNORMAL) Differential, Automated (02/20/2024 4:23 AM EDT) [facility] Neutrophil % 81.7 % [facility] Neutrophil Absolute 10.37(H) 1.70 - 6.10 x10(3)/mc L [facility] Lymph % 7.4 % [facility] Lymphocytes Abs 0.9 0.9 - 3.2 x10(3)/mc L [facility] Monocyte % 9.7 % [facility] Monocyte Abs 1.2(H) 0.3 - 0.9 x10(3)/mc L [facility] Eos % 0.1 % [facility] Eosinophils Abs 0.0 0.0 - 0.4 x10(3)/mc L [facility] Basophil % 0.2 % [facility] Baso Absolute [...] Absolute 0.12(H) 0.00 - 0.04 x10(3)/mc L [facility] Blood 02/20/2024 4:23 AM EDT 02/20/2024 4:42 AM EDT Narrative Resulting Agency Comment Spec In Lab Minnie FRENCH HEMATOLOGY CECILIO ALEMAN [facility] [place] [address] * (ABNORMAL) Hemogram (02/20/2024 4:23 AM EDT) White Blood Cell 12.7(H) 4.0 - 9.5 x10(3)/mc L [facility] [...] Platelet 88(L) 145 - 357 x10(3)/mc L [facility] RDW Standard Deviation 43.5 36.0 - 45.0 [facility] LABORATORY RDW coefficient of variation 13.7 11.4 - 13.8 % [facility] Mean Platelet Volume 10.2 7.6 - 12.9 [facility] LABORATORY NRBC% auto 0.0 % [facility] NRBC Absolute 0.000 0.000 - 0.000 x10(3)/mc L [facility] Blood 02/20/2024 4:23 AM EDT 02/20/2024 4:42 AM EDT Narrative Resulting Agency Comment Spec In Lab Minnie FRENCH HEMATOLOGY CECILIO ALEMAN [facility] [place] [address] * (ABNORMAL) Basic Metabolic Panel (non-fasting) (02/20/2024 [...] Performing Organization Address [facility] Co de Phone Number [facility] [place] [address] * Potassium (02/19/2024 3:57 AM EDT) Potassium [...] Performing Organization Address [facility] Co de Phone Number [facility] [place] [address] * POCT Glucose (02/18/2024 8:24 AM EDT) Glucose, POC 157 65 - 199 mg/dL [facility] Comment: Supplemental ranges: <140 mg/dL before meals <180 mg/dL all other times of the day Blood 02/18/2024 8:24 AM EDT 02/18/2024 8:24 AM EDT Hayder Graham MD POINT OF CARE TEST ORDERABLES [facility] [place] [address] * Scan, Peripheral Blood (02/18/2024 1:40 AM EDT) Plat estimate Decreased [facility] RBC Morphology Normal [facility] Blood 02/18/2024 1:40 AM EDT 02/18/2024 1:56 AM EDT Narrative Resulting Agency Comment Spec In Lab Neftali FRENCH HEMATOLOGY ORDER OLE Performing Organization Address City/[facility]/ZIP Co de Phone Number [facility] [place] [address] * (ABNORMAL) Differential, Automated (02/18/2024 1:40 AM EDT) [facility] Neutrophil % 87.1 % [facility] Neutrophil Absolute 15.03(H) 1.70 - 6.10 x10(3)/mc L [facility] Lymph % 3.0 % [facility] Lymphocytes Abs 0.5(L) 0.9 - 3.2 x10(3)/mc L [facility] Monocyte % 9.1 % [facility] Monocyte Abs 1.6(H) 0.3 - 0.9 x10(3)/mc L [facility] Eos % 0.0 % [facility] Eosinophils Abs 0.0 0.0 - 0.4 x10(3)/mc L [facility] Basophil % 0.2 % [facility] Baso Absolute [...] HEMATOLOGY ORDER OLE [facility] [place] [address] * (ABNORMAL) Hemogram (02/18/2024 1:40 AM EDT) White Blood Cell 17.2(H) 4.0 - 9.5 x10(3)/ L [facility] [...] Platelet 147 145 - 357 x10(3)/ L [facility] RDW Standard Deviation 39.9 36.0 - 45.0 [facility] RDW coefficient of variation 13.2 11.4 - 13.8 % [facility] Mean Platelet Volume 9.9 7.6 - 12.9 fL [facility] NRBC% auto 0.0 % [facility] NRBC Absolute 0.000 0.000 - 0.000 x10(3)/mc L [facility] Blood 02/18/2024 1:40 AM EDT 02/18/2024 1:56 AM EDT Narrative Resulting Agency Comment Spec In Lab Neftali FRENCH HEMATOLOGY ORDER OLE [facility] [place] [address] * (ABNORMAL) Basic Metabolic Panel (non-fasting) (02/18/2024 [...] MD CHEMISTRY ORDERABLE S Performing Organization Address City/[facility]/ZIP Co de Phone Number [facility] [place] [address] * (ABNORMAL) Troponin (02/18/2024 1:40 AM EDT) Pathologist [facility] Troponin-T, High Sensitivity 342(H) <=22 ng/L [facility] [...] can be found in the [facility] Test Catalog Troponin - [facility] Test Catalog Reference: [place] Definition of Myocardial Infarction. Journal of the [place] College of Cardiology 2018;72:9367-0025 Blood 02/18/2024 1:40 AM EDT 02/18/2024 1:56 AM EDT Narrative Resulting Agency Comment Spec In Lab Hayder Graham MD CHEMISTRY ORDERABLE S Performing Organization Address City/[facility]/ZIP Co de Phone Number [facility] [place] [address] * POCT Glucose (02/17/2024 8:13 PM EDT) Glucose, POC 142 65 - 199 mg/dL [facility] Comment: Supplemental ranges: <140 mg/dL before meals <180 mg/dL all other times of the day Blood 02/17/2024 8:13 PM EDT 02/17/2024 8:13 PM EDT Hayder Graham MD POINT OF CARE TEST ORDERABLES Performing Organization Address City/[facility]/ZIP Co de Phone Number [facility] [place] [address] * POCT Glucose (02/17/2024 5:42 PM EDT) Glucose, POC 160 65 - 199 mg/dL [facility] Comment: Supplemental ranges: <140 mg/dL before meals <180 mg/dL all other times of the day Blood 02/17/2024 5:42 PM EDT 02/17/2024 5:42 PM EDT Hayder Graham MD POINT OF CARE TEST ORDERABLES Performing Organization Address City/[facility]/ZIP Co de Phone Number [facility] [place] [address] * Hemoglobin (02/17/2024 5:42 PM EDT) Hemoglobin 13.7 13.7 - 16.5 g/dL [facility] Blood 02/17/2024 5:42 PM EDT 02/17/2024 6:10 PM EDT Narrative Resulting Agency Comment Spec In Lab Hayder Graham MD HEMATOLOGY ORDERABL ES [facility] [place] [address] * Potassium (02/17/2024 5:42 PM EDT) Potassium [...] MD CHEMISTRY ORDERABLE S Performing Organization Address City/State/[facility] Co de Phone Number [facility] [place] [address] * (ABNORMAL) BLOOD GAS 2 ARTERIAL (02/17/2024 [...] [facility] FIO2 Art 40 % [facility] PF Ratio Art 195 [facility] Blood 02/17/2024 4:18 PM EDT 02/17/2024 4:18 PM EDT Hayder Graham MD POINT OF CARE TEST ORDERABLES [facility] [place] [phone] * XR Chest One View (02/17/2024 1:44 PM EDT) [employer] WORKSTATION ID [id number] DH RAD Anatomical Region Laterality Modality Chest N/A Digital Radiogra phy Impressions 02/17/2024 2:12 PM EDT 1. ??No definite pleural fluid collection or pneumothorax. 2. ??Right IJ Lockridge-Kaila catheter tip terminates in a descending branch [...] signed by: Denzel Hankins MD, [facility] ??([phone]), at 02/17/2024 2:12 PM Narrative 02/17/2024 2:12 PM EDT EXAMINATION: XR CHEST ONE VIEW CLINICAL HISTORY: s/p avr/cabg eval effusions TECHNIQUE: 1 view of the chest COMPARISON: Chest x-ray 01/09/2024, chest CT 02/03/2024 FINDINGS: ET tube tip terminates 5.2 cm above the carlos. Right IJ Lockridge-Kaila catheter tip terminates in a descending branch [...] 5.2 cm above the carlos. Right IJ Lockridge-Ganzcatheter tip terminates in a descending branch of [...] fluid collection or pneumothorax. 2. Right IJ Lockridge-Kaila catheter tip terminates in a descending branch [...] signed by: Denzel Hankins MD, [facility]([phone]), at 02/17/2024 2:12 PM Hayder Graham MD [...] [facility] FIO2 Art 100 % [facility] PF Ratio Art 320 [facility] Blood 02/17/2024 1:31 PM EDT 02/17/2024 1:31 PM EDT Hayder Graham MD POINT OF CARE TEST ORDERABLES Performing Organization Address City/[facility]/ZIP Co de Phone Number [facility] [place] [address] * (ABNORMAL) Coox2 (02/17/2024 1:21 PM EDT) [...] OF CARE TEST ORDERABLES Performing Organization Address City/[facility] Co de Phone Number [facility] [place] [address] * (ABNORMAL) BLOOD GAS 2 ARTERIAL (02/17/2024 [...] OF CARE TEST ORDERABLES Performing Organization Address [facility] [place]/[facility] Co de Phone Number [facility] [place] [address] * (ABNORMAL) Fibrinogen (02/17/2024 12:10 PM EDT) [...] MD HEMATOLOGY ORDERABLE S Performing Organization Address [facility] [place]/[facility] Co de Phone Number [facility] [place] [address] * (ABNORMAL) Thrombin time (02/17/2024 12:10 PM [...] MD HEMATOLOGY ORDERABLE S Performing Organization Address [facility] [place]/[facility] de Phone Number [facility] [place] [address] * APTT (02/17/2024 12:10 PM EDT) Partial [...] S Performing Organization Address [facility] de Phone Number [facility] [place] [address] * (ABNORMAL) Prothrombin Time (02/17/2024 12:10 PM [...] ORDERABLE S [facility] [place] [address] * (ABNORMAL) Hemogram (02/17/2024 12:10 PM EDT) [...] RDW Standard Deviation 40.2 36.0 - 45.0 [facility] RDW coefficient of variation 12.8 11.4 - 13.8 % [facility] Mean Platelet Volume 9.5 7.6 - 12.9 fL [facility] NRBC% auto 0.0 % [facility] NRBC Absolute 0.000 0.000 - 0.000 x10(3)/mc L [facility] Blood 02/17/2024 12:1 0 PM EDT 02/17/2024 12:19 PM EDT Narrative Resulting Agency Comment Spec In Lab Tara York MD HEMATOLOGY ORDERABLE S [facility] [place] [address] * (ABNORMAL) BLOOD GAS 2 ARTERIAL (02/17/2024 [...] [facility] Comment: Noted by instrument technician helper. Please note: Patients with WBC >100,000 may [...] CARE TEST ORDERABLES [facility] [place] [address] * (ABNORMAL) BLOOD GAS 2 ARTERIAL (02/17/2024 [...] [facility] Comment: Noted by instrument technician helper. Please note: Patients with WBC >100,000 may [...] OF CARE TEST ORDERABLES Performing Organization Address [facility] Co de Phone Number [facility] [place] [address] * (ABNORMAL) Hemoglobin and Hematocrit, blood (02/17/2024 11:04 AM EDT) Hemoglobin 9.6(L) 13.7 - 16.5 g/dL [facility] [...] Performing Organization Address [facility] [place]/[facility]/ZIP Co de Phone Number [facility] [place] [address] * (ABNORMAL) Platelet count (02/17/2024 11:04 AM EDT) Platelet 106(L) 145 - 357 x10(3)/mc L [facility] Immature Plt % 1.6 0.0 - 7.4 % [facility] Comment: Limitation of the Immature Platelet Fraction (IPF)-May be less reliable when the platelet count is less than 27m297/uL due to statistical imprecision. The IPF value [...] in a decreased state of production. References: [employer] The Clinical Value of the Immature Platelet Fraction (IPF) in Cell Recovery Document Number [id number] 03/2011 [employer] The Role of the Immature Platelet Fraction (IPF) in the Differential Diagnosis of Thrombocytopenia, Document [id number] V002/15/14 P002/17 Blood 02/17/2024 11:0 4 AM EDT 02/17/2024 11:12 AM EDT Narrative Resulting Agency Comment Spec In Lab Hayder Graham MD HEMATOLOGY ORDERABL ES Performing Organization Address [facility] Co de Phone Number [facility] [place] [address] * (ABNORMAL) Fibrinogen (02/17/2024 11:04 AM EDT) [...] Lab Hayder Graham MD HEMATOLOGY ORDERABL ES [facility] [address] * (ABNORMAL) BLOOD GAS 2 ARTERIAL (02/17/2024 [...] CARE TEST ORDERABLES [facility] [place] [address] * (ABNORMAL) BLOOD GAS 2 ARTERIAL (02/17/2024 [...] CARE TEST ORDERABLES [facility] [place] [address] * Surgical Pathology Report (02/17/2024 10:01 AM EDT) Final Diagnosis [id number] ? Location: [facility]; [facility]; The signing pathologist has (i) examined the relevant preparation(s) for the specimen(s) and (ii) rendered or confirmed the diagnosis(es). . ?Surgical Pathology DIAGNOSIS Aortic valve leaflets, excision: Valve leaflets with myxoid degeneration, nodular fibrosis and dystrophic calcifications. Electronically signed by: ?Livier Montoya MD Verified: ??02/24/2024 13:49 ??Pathologist Performed at: ??-[facility] Dept. of Pathology, [place] [address] Sterile Process Tech: Job Brewer MD, AP, ??IA Certificate: [id number] SPECIMEN(S) SUBMITTED A - Aortic Valve Leaflets, [...] Sections Processing Blocks submitted for decalcification: A1. Saw Straightener sections in 1 cassette labeled A1. ??ajw 02/24/2024 1:49 PM EDT [facility] AORTIC STRUCTURE / Unknown 02/17/2024 10:01 AM EDT 02/17/2024 10:01 AM EDT Hayder Graham MD PATHOLOGY/[place] [address] * Specimen to Pathology (02/17/2024 10:01 AM EDT) AP Specimen 02/17/2024 10:0 1 AM EDT 02/17/2024 10:01 AM EDT Narrative [facility] - 02/17/2024 10:01 AM EDT Specimen requisition ordered. ??Separate Pathology report to follow Hayder Graham MD PATHOLOGY/CYTOLOGY ORDERABLES [facility] [place] [address] * (ABNORMAL) BLOOD GAS 2 ARTERIAL (02/17/2024 9:35 AM EDT) pH, Arterial 7.33(L) 7.35 - 7.45 [facility] PCO2, Arterial 35 35 - 45 mmHg [facility] PO2, Arterial 318(H) 85 - 104 mmHg [facility] Bicarbonate, Arterial 17.9(L) 20.0 - 26.0 mmol/L [facility] Base Excess, Arterial -8.0(L) -3.0 [...] CARE TEST ORDERABLES [facility] [place] [address] * (ABNORMAL) BLOOD GAS 2 VENOUS (02/17/2024 9:34 AM EDT) pH, Venous 7.22(Criti marquez) 7.32 - 7.42 [facility] Comment:Noted by instrument technician helper. PCO2, Venous 43 41 - 51 mmHg [facility] Comment:Noted by instrument technician helper. PO2, Venous 57(H) 25 - 40 mmHg [facility] Comment:Noted by instrument technician helper. Bicarbonate, Venous 17.1 mmol/L [facility] Comment:Noted by instrument technician helper. Base Excess, Venous -10.6 mmol/L [facility] Comment:Noted by instrument technician helper. Hgb Blood Gas 11.2(L) 13.7 - 16.5 g/dL [facility] Comment:Noted by instrument technician helper. Oxyhemoglobin, Venous 86.5 % [facility] Comment:Noted by instrument technician helper. Carboxyhemoglob in, Venous 0.3 % [facility] Comment: Noted by instrument technician helper. Nonsmokers: 0.5-1.5% COHB Smokers: Variable, but usually less than 10% Toxic: 20-30% COHB Lethal: Greater than 60% COHB Methemoglobin, Venous 0.0 <=1.5 % [facility] Comment:Noted by instrument technician helper. Na Whole Blood 156(H) 135 - 145 mmol/L [facility] Comment:Noted by instrument technician helper. K Whole Blood 5.5(H) 3.5 - 5.0 mmol/L [facility] Comment: Noted by instrument technician helper. Please note: Patients with WBC >100,000 may have falsely elevated Potassium levels. Contact the Clinical Chemistry Laboratory if there are any questions. ICa Whole Blood 1.03(L) 1.15 - 1.33 mmol/L [facility] Comment: Noted by instrument technician helper. Note: ??Total bilirubin higher than 20 mg/dL may lead to falsely low ionized calcium. CL Whole Blood 100 98 - 107 mmol/L [facility] Comment:Noted by instrument technician helper. Gluc Whole Bld 132 65 - 199 mg/dL [facility] Comment: Noted by instrument technician helper. Diabetes: >=200 mg/dL plus symptoms Lactate WB 1.0 0.5 - 2.2 mmol/L [facility] Comment:Noted by instrument technician helper. Blood Gas Source Venous [facility] Blood 02/17/2024 9:34 AM EDT 02/17/2024 9:34 AM EDT Hayder Graham MD POINT OF CARE TEST ORDERABLES [facility] [place] [address] * (ABNORMAL) BLOOD GAS 2 ARTERIAL (02/17/2024 [...] OF CARE TEST ORDERABLES Performing Organization Address [facility] [place]/[facility] Co de Phone Number [facility] [address] * POCT Glucose (02/17/2024 6:38 AM EDT) Glucose, POC 98 65 - 199 mg/dL [facility] Comment: Supplemental ranges: <140 mg/dL before meals <180 mg/dL all other times of the day Blood 02/17/2024 6:38 AM EDT 02/17/2024 6:38 AM EDT Hayder Graham MD POINT OF CARE TEST ORDERABLES Performing Organization Address [facility] [place]/[facility] Co de Phone Number [facility] [place] [phone] * Transesophageal Echo/OR (02/17/2024 6:33 AM EDT) [...] [facility] [...] dose on Sat02/17/24 at 1400, Until Discontinued, [place] teeth and / or gums. Scan the CHG vial in the [employer] Q-Care Oral Care Kit from floor stock. Ventilator-associated pneumonia prophylaxis For use in ICU/Critical care locations ONLY. Obtain kit from Floor Stock location. Scan CHG vial in the [employer] Q-Care Oral Care Kit, Routine Given 02/17/2024 [...] at 50% of previous rate. Call warehouse man if goal not achieved at maximum rate. [...] PHENYLephrine and/or vasopressin ineffective. Call pager # [phone] if initiated. Titrate to keep systolic blood [...] L/min/M2. Maximum volume 2 L. Call warehouse man for additional fluid orders: pager #[phone]. Rate/Dose Verify 02/18/2024 8:00 AM EDT 1 mL/hr 1 mL/hr Rate/Dose Verify 02/18/2024 6:00 AM EDT 1 mL/hr 1 mL/hr Rate/Dose Verify 02/18/2024 4:00 AM EDT 1 mL/hr 1 mL/hr sodium chloride 0.9% infusion 10-30 mL/hr, Intravenous, DAILY PRN, Starting on Sat02/17/24 at 1307, Until Sat02/18/24 at 0835, Side port TKO rate, per [facility] nursing protocol. Rate/Dose Verify 02/17/2024 8:00 [...] Routine documented in this encounter Care Teams Mailroom Coordinator Relationship Specialty Start Date End Date Aparna Jordan APRN PCP - General Family Medicine 10/21/23 05/26/24 documented as of this encounter
--- OUTSIDE RECORDS SUMMARY | 2024-08-18 10:08 | XMS_ITS | Encounter Summary ---
Author [place] [address] Care Team Providers Care System Administration Advisor Name Role Phone Vanessa Christian MAURI Primary Care Provider [phone] Reason for Visit * Auth/Cert (Routine) Specialty [...] Rima Dickinson MD [facility] [place] [address] [facility] Referral ID Status Reason Start Date Expiration Date Visits Re quested Visits Authorized [id number] 1 1 Encounter Details Date Type Department Care Team (Late st Contact Info) Description 02/03/2024 10:00 AM EDT - 02/03/2024 11:00 AM EDT [place] [address] Saira Lua MD CARDIAC CATHETERIZATION Social History [...] lbs Follow-up Visits Follow up with your hot metal charger in 2-4 weeks Access Site 'Black and Blue' and tenderness is expected during the first week Call if you noted a mass (lump) greater than the size of a ellis Call Office with any Questions and if you have any of the following Clarence Lane M.D Interventional Online Content Developer Automotive Maintenance Technician #: [phone] * Attachments The following attachments cannot be [...] Lane MD - 02/03/2024 11:48 AM EDT [facility] Interventional Cardiology Adult Pre-Procedure H&P Update: Cardiac Catheterization Karlos Anthony [id number] 1960 Chief Complaint: Aortic stenosis HPI: Mr. [...] is inthe chart Clarence Lane MD Interventional Online Content Developer 02/03/24 11:48 AM documented in this encounter Miscellaneous Notes * Brief Op Note - Clarence Lane MD - 02/03/2024 12:51 PM EDT Preliminary Cardiac Catheterization Procedure Note: Patient Name: Karlos Anthony : [id number] MR#: [id number] Case Date: 02/03/2024 Automotive Maintenance Technician: Surgeon(s) and Role: * Saira Lua [...] Modality Other Narrative 02/12/2024 3:47 PM EDT ?[facility] ? Cardiac Catheterization/Intervention Report ? Patient Name: Patenaude, Karlos ? Procedure Date: 02/03/2024 ? A #: [id number] ? Primary Physician: Mogadam, Emad ? Case #: [id number] ? File Name: [id number] ? Catheterization Order Number: [id number] ? [facility] ? Final Report [place], [place] ? Patient Name: ? Karlos Patenaude ? ID#: ?[id number] ? : ?1960 ? Procedure Date: ? [...] Procedure Note Saira Lua MD - 02/12/2024 [facility] Cardiac Catheterization/Intervention Report Patient Name: Kralos Anthony Procedure Date: 02/03/2024 A #: [id number] Primary Physician: Saira Lua Case #: [id number] File Name: [id number] Catheterization Order Number: [id number] [facility] FinalReport [place], [place] Patient Name: Karlos Anthony ID#:[id number] :1960 Procedure Date: February 03, 2024 Case [...] was designated as ASA Class III. The [facility] clinical frailty scale is 3: [...] (Bezet) 372 ms MUSE SYSTEM Calculated P Meta 59 degrees MUSE SYSTEM Calculated R Meta 34 degrees MUSE SYSTEM Calculated T Meta 63 degrees MUSE SYSTEM INTERPRETATION Sinus bradycardia Otherwise normal ECG When compared with ECG of 21-OCT-2023 15:34, No significant change was found Confirmed by MD RENEE, PIPER ([id number]) on 02/03/2024 11:57:31 AM MUSE SYSTEM 02/03/2024 10:3 3 AM EDT 02/03/2024 11:57 AM EDT Rima Younbglood MD ECG ORDERABLES MUSE SYSTEM documented in [...] MD) documented in this encounter Care Teams System Administration Advisor Relationship Specialty Start Date End Date Vanessa Christian APRN PCP - General Family Medicine 10/21/23 05/26/24 documented as of this encounter
--- OUTSIDE RECORDS SUMMARY | 2024-08-18 10:08 | XMS_ITS | Encounter Summary ---
Author Organization [facility] [address] Care Team Providers Care Vocational Rehab Consultant Name Role Phone Vanessa Christian APRN Primary Care Provider [phone] Encounter Details Date Type Department Care Team [...] on filedocumented in this encounter Care Teams Vocational Rehab Consultant Relationship Specialty Start Date End Date Vanessa Christian APRN PCP - General Family Medicine 10/21/23 05/26/24 documented as of this encounter
--- OUTSIDE RECORDS SUMMARY | 2024-08-18 10:08 | XMS_ITS | Encounter Summary ---
Author Organization [facility] [place] [address] Care Team Providers Care Pattern Ruler Name Role Phone Vanessa Christian MAURI Primary Care Provider [phone] Reason for Visit * Auth/Cert (Routine) Specialty [...] (WRVU 5.9) Rima Dickinson MD [facility] [place] [place] [address] [facility] Referral ID Status Reason Start Date Expiration Date Visits Re quested Visits Authorized [id number] 1 1 Encounter Details Date Type Department Care Team (Latest Contact Info) Description 02/03/2024 8:06 AM EDT - 02/03/2024 2:54 PM EDT Hospital En[place] [address] Rima Dickinson MD [facility] [place] [place] [address] Screening for cardiovascular condition; Aortic valve stenosis, [...] lbs Follow-up Visits Follow up with your wind turbine mechanical engineer in 2-4 weeks Access Site 'Black and Blue' and tenderness is expected during the first week Call if you noted a mass (lump) greater than the size of a ellis Call Office with any Questions and if you have any of the following Clarence Lane M.D Interventional Furniture Finisher Ip Architect #: [phone] * Attachments The following attachments cannot be sent through Care Everywhere. * CAD (Coronary Artery Disease): General Info (Moroccan) * Coronary Angiogram: Post-op (Moroccan) documented in this encounter Medications at Time [...] Lane MD - 02/03/2024 11:48 AM EDT [facility] Interventional Cardiology Adult Pre-Procedure H&P Update: Cardiac Catheterization Karlos Anthony [id number] Chief Complaint: Aortic stenosis HPI: Mr. [...] is inthe chart Clarence Lane MD Interventional Furniture Finisher 02/03/24 11:48 AM documented in this encounter Miscellaneous Notes * Brief Op Note - Clarence Lane MD - 02/03/2024 12:51 PM EDT Preliminary Cardiac Catheterization Procedure Note: Patient Name: Karlos Anthony : [id number] MR#: [id number] Case Date: 02/03/2024 Ip Architect: Surgeon(s) and Role: * Saira Lua MD [...] ? Procedure Date: 02/03/2024 ? A #: [id number] ? Primary Physician: Mogadam, Emad ? Case #: [id number] ? File Name: [id number] ? Catheterization Order Number: [id number] ? [facility] ? Final Report [place], [place] ? Patient Name: ? Karlos Anthony ? ID#: ?[id number] ? : ?1960 ? Procedure Date: ? [...] Karlos Anthony Procedure Date: 02/03/2024 A #: [id number] Primary Physician: Saira Lua Case #: [id number] File Name: [id number] Catheterization Order Number: [id number] [facility] FinalReport [place], [place] Patient Name: Karlos Anthony ID#:[id number] :1960 Procedure Date: February 03, 2024 Case [...] designated as ASA Class III. The [facility] clinical frailty scale is 3: Managing [...] (Bezet) 372 ms MUSE SYSTEM Calculated P [place] 59 degrees MUSE SYSTEM Calculated R [place] 34 degrees MUSE SYSTEM Calculated T [place] 63 degrees MUSE SYSTEM INTERPRETATION Sinus bradycardia [...] MD) documented in this encounter Care Teams Pattern Ruler Relationship Specialty Start Date End Date Vanessa Christian APRN PCP - General Family Medicine 10/21/23 05/26/24 documented as of this encounter
--- OUTSIDE RECORDS SUMMARY | 2024-08-18 10:09 | XMS_ITS | Encounter Summary ---
Author Organization [facility] [place] [address] Care Team Providers Care Industrial Economist Name Role Phone Vanessa Christian Lane DOTSON Primary Care Provider [phone] Encounter Details Date Type Department Care Team (Latest Contact Info) Description 01/09/2024 3:00 PM EDT Laboratory [place] [id number] Nonrheumatic aortic valve stenosis Social History Tobacco Use Types Packs/Day Years Used Date Smoking Tobacco: Former Cigarettes Smokeless Tobacco: Never Comments:Quit 15 + years ago Alcohol Use Standard Drinks/Week Comments Yes 0 (1 standard drink = 0.6 oz pur e alcohol) rare [facility] Inpatient Questions Answer Date Recorded [...] stenosis TYPE AND SCREEN, SDP (FUTURE SURGERY, [facility] SAME [facility] ONLY) Routine 01/09/2024 2:58 [...] Emergency Department ABORH Recheck Order Order Placed [facility] ABORH Type Recheck Completed [facility] Blood 01/09/2024 2:58 PM EDT 01/09/2024 3:08 PM EDT Narrative Resulting Agency Comment Spec In Lab Zak Farmer MD BLOOD BANK LAB ORDE ASH [facility] [place] [address] * Differential, Automated (01/09/2024 2:58 PM EDT) Neutrophil % 70.5 % [facility] Neutrophil Absolute 4.34 1.70 - 6.10 x10(3)/[facility] Lymph % 18.9 % [facility] Lymphocytes Abs 1.2 0.9 - 3.2 x10(3)/[facility] Monocyte % 8.0 % [facility] Monocyte Abs 0.5 0.3 - 0.9 x10(3)/[facility] Eos % 1.6 % [facility] Eosinophils Abs 0.1 0.0 - 0.4 x10(3)/[facility] Basophil % 0.5 % [facility] Baso Absolute 0.0 0.0 - 0.1 x10(3)/[facility] Immature Gran % 0.50 % [facility] [...] 0.00 - 0.04 x10(3)/[facility] Blood 01/09/2024 2:58 PM EDT 01/09/2024 3:03 PM EDT Narrative Resulting Agency Comment Spec In Lab Zak Farmer MD HEMATOLOGY ORDERABL ES [facility] [place] [address] * Hemogram (01/09/2024 2:58 PM EDT) White Blood Cell 6.2 4.0 - 9.5 x10(3)/[facility] Red Blood Cell 5.53 4.58 - 5.54 x10(6)/[facility] Hemoglobin 16.1 13.7 - 16.5 g/dL [...] 145 - 357 x10(3)/[facility] RDW Standard Deviation 39.2 36.0 - 45.0 [facility] RDW coefficient of variation 12.6 11.4 - 13.8 % [facility] Mean Platelet Volume 9.5 7.6 - 12.9 [facility] NRBC% auto 0.0 % [facility] NRBC Absolute 0.000 0.000 - 0.000 x10(3)/[facility] Blood 01/09/2024 2:58 PM EDT 01/09/2024 3:03 PM EDT Narrative Resulting Agency Comment Spec In Lab Zak Farmer MD HEMATOLOGY ORDERABL ES [facility] [place] [address] * Basic Metabolic Panel (non-fasting) (01/09/2024 2:58 [...] MD CHEMISTRY ORDERABLE S Performing Organization Address [facility] Co de Phone Number [facility] [place] [address] * Hepatic Function Panel (01/09/2024 2:58 PM [...] MD CHEMISTRY ORDERABLE S Performing Organization Address [facility] Co de Phone Number [facility] [place] [address] * Prothrombin Time (01/09/2024 2:58 PM EDT) [...] ORDERABL ES Performing Organization Address City/[facility]/ZIP Co de Phone Number [facility] [place] [address] * Type and Screen Future Surgery, [facility] ONLY) (01/09/2024 2:58 PM [...] ORDE RABLES [facility] [place] [address] documented in this encounter Visit Diagnoses Diagnosis Nonrheumatic aortic valve stenosis Aortic valve disorders documented in this encounter Care Teams Industrial Economist Relationship Specialty Start Date End Date Vanessa Christian APRN PCP - General Family Medicine 1/15/24 8/20/24 documented as of this encounter
--- OUTSIDE RECORDS SUMMARY | 2024-08-18 10:09 | XMS_ITS | Encounter Summary ---
Author Organization [facility] [place] [address] Care Team Providers Care X Ray Electronics Wireman Name Role Phone Vanessa Christian Lane DOTSON Primary Care Provider [phone] Encounter Details Date Type Department Care Team (Late st Contact Info) Description 01/09/2024 2:30 PM EDT Clinical Support Same Day at [facility] [place] [place] [phone] Social History Tobacco Use Types Packs/Day Years Used Date Smoking Tobacco: Former Cigarettes Smokeless Tobacco: Never Comments:Quit 15 + years ago Alcohol Use Standard Drinks/Week Comments Yes 0 (1 standard drink = 0.6 oz pur e alcohol) rare [facility] Inpatient Questions Answer Date Recorded Prevent [...] you tube link for a video about [facility] cardiac [place]. Instructed to bring the booklet [...] type and screen performed while in the [facility]. Sent to Radiology for chest x-ray. Special medication instructions: None Procedure date: not booked. Darian documented in this encounter Plan of Treatment Not on file documented as of this encounter Visit Diagnoses Not on filedocumented in this encounter Care Teams X Ray Electronics Wireman Relationship Specialty Start Date End Date Vanessa Christian APRN PCP - General Family Medicine 10/21/23 05/26/24 documented as of this encounter
--- OUTSIDE RECORDS SUMMARY | 2024-08-18 10:09 | XMS_ITS | Encounter Summary ---
Author Organization [facility] Address [facility] [place] [address] Care Team Providers Care Database Tester Name Role Phone Vanessa Christian MAURI Primary Care Provider [phone] Encounter Details Date Type Department Care Team (Latest Contact Info) Description 01/09/2024 3:02 PM EDT - 01/09/2024 11:59 PM EDT Hospital Encounter XRay at [address] [place] [address] Zak Farmer MD [facility] [place] [address] Nonrheumatic aortic valve stenosis Discharge Disposition: Home Social History Tobacco Use Types Packs/Day Years Used Date Smoking Tobacco: Former Cigarettes Smokeless Tobacco: Never Comments:Quit 15 + years ago Alcohol Use Standard Drinks/Week Comments Yes 0 (1 standard drink = 0.6 oz pur e alcohol) rare [facility] Inpatient Questions Answer Date Recorded Prevent Contact [...] disorders documented in this encounter Care Teams Database Tester Relationship Specialty Start Date End Date Vanessa Christian APRN PCP - General Family Medicine 10/21/23 05/26/24 documented as of this encounter
--- OUTSIDE RECORDS SUMMARY | 2024-08-18 10:09 | XMS_ITS | Encounter Summary ---
Author Organization [facility] [place] [address] Care Team Providers Care Drying And Winding Supervisor Name Role Phone Vanessa Christian APRN Primary Care Provider [phone] Encounter Details Date Type Department Care Team (Late st Contact Info) Description 10/21/2023 Abstract Cardiology at [address] [place] [phone] Adam Mayes RN Social History Tobacco Use [...] on filedocumented in this encounter Care Teams Drying And Winding Supervisor Relationship Specialty Start Date End Date Vanessa Christian APRN PCP - General Family Medicine 10/21/23 05/26/24 documented as of this encounter
--- OUTSIDE RECORDS SUMMARY | 2024-08-18 10:09 | XMS_ITS | Encounter Summary ---
Author Organization [facility] Address [facility] [place] [address] Care Team Providers Care Welding Tester Name Role Phone Vanessa Christian HOTEL SUPPLIES SALESPERSON Primary Care Provider [phone] Reason for Referral * Diagnostic Test (Routine) - Closed Specialty Diagnoses / Procedures Referred By Contac t Referred To Contact Radiology Diagnoses Nonrheumatic aortic valve stenosis Procedures CT Chest wo Contrast (Generic) Louisa Reid PA [facility] [place] [address] [facility] [place] [address] Referral ID Status Reason Start Date Expiration Date V isits Requested Visits Authorized [id number] Closed Specialty Service Requested 01/10/2024 07/11/2025 1 1 Encounter Details Date Type Department Care Team (Late st Contact Info) Description 01/09/2024 Orders [place] [address] Zak Farmer MD [facility] [place] [address] Nonrheumatic aortic valve stenosis Social History Tobacco [...] wo Contrast (Generic) (02/03/2024 7:44 AM EDT) THREAT STREAM WORKSTATION ID [id number] RAD Anatomical Region Laterality Modality Chest Computed [...] signed by: Rogerio Wright MD, [facility] ([phone]), at 02/03/2024 10:00 AM Narrative 02/03/2024 10:00 [...] nodule along the minor fissure (series [id number]) and a 8 mm right lower lobe [...] signed by: Rogerio Wright MD, [facility]([phone]), at 02/03/2024 10:00 AM Zak Farmer MD IMG CT ORDERABLES documented in this encounter Visit Diagnoses Diagnosis Nonrheumatic aortic valve stenosis Aortic valve disorders Nonrheumatic aortic valve stenosis Aortic valve disorders documented in this encounter Care Teams Welding Tester Relationship Specialty Start Date End Date Vanessa Christian APRN PCP - General Family Medicine 10/21/23 05/26/24 documented as of this encounter
--- OUTSIDE RECORDS SUMMARY | 2024-08-18 10:09 | XMS_ITS | Encounter Summary ---
Author Organization [facility] [place] [address] Care Team Providers Care Neighborhood Coordinator Name Role Phone Vanessa Christian APRN Primary Care Provider [phone] Encounter Details Date Type Department Care Team [...] on filedocumented in this encounter Care Teams Neighborhood Coordinator Relationship Specialty Start Date End Date Vanessa Christian APRN PCP - General Family Medicine 10/21/23 05/26/24 documented as of this encounter
--- OUTSIDE RECORDS SUMMARY | 2024-08-18 10:09 | XMS_ITS | Encounter Summary ---
Author Organization [facility] [place] [address] Care Team Providers Care Testing Director Name Role Phone Vanessa Christian APRN Primary Care Provider [phone] Encounter Details Date Type Department Care Team [...] on filedocumented in this encounter Care Teams Testing Director Relationship Specialty Start Date End Date Vanessa Christian APRN PCP - General Family Medicine 10/21/23 05/26/24 documented as of this encounter
--- OUTSIDE RECORDS SUMMARY | 2024-08-18 10:09 | XMS_ITS | Encounter Summary ---
Author Organization [facility] [place] [address] Care Team Providers Care Licensed Practical Nurse Instructor Name Role Phone Vanessa Christian APRN Primary Care Provider [phone] Encounter Details Date Type Department Care Team (Late st Contact Info) Description 12/26/2023 Notes Only Cardiology at [address] [place] [address] Neftali Ernandez MD [facility] [place] [address] Social History Tobacco Use Types Packs/Day Years [...] 1:37 PM EDT Echocardiogram images reviewed from [facility]. Indeed, the aortic valve appears severely stenotic. Cannotrule out bicuspid valve documented in this encounter Plan of Treatment Not on file documented as of this encounter Visit Diagnoses Not on filedocumented in this encounter Care Teams Licensed Practical Nurse Instructor Relationship Specialty Start Date End Date Vanessa Christian APRN PCP - General Family Medicine 10/21/23 05/26/24 documented as of this encounter
--- OUTSIDE RECORDS SUMMARY | 2024-08-18 10:09 | XMS_ITS | Encounter Summary ---
[place] [address] Care Team Providers Care Paper Slitter Name Role Phone Victor M Lafleur MD Primary Care Provider Reason for Visit * Reason Onset Date Comments Referral 09/20/2023 Encounter Details Date Type Department Care Team (Late st Contact Info) Description 09/20/2023 Telephone Cardiology at [address] [address] Karen Billy, sack department supervisor Social History Tobacco Use Types Packs/Day Years [...] filedocumented in this encounter Care Teams Paper Slitter Relationship Specialty Start Date End Date Victor M Lafleur MD PCP - General 10/02/13 10/20/23 documented as of this encounter
--- OUTSIDE RECORDS SUMMARY | 2024-08-18 10:09 | XMS_ITS | Encounter Summary ---
Author Organization [facility] [place] [address] Care Team Providers Care Optomechanical Technician Name Role Phone Vanessa Christian APRN Primary Care Provider [phone] Encounter Details Date Type Department Care Team (Late st Contact Info) Description 10/21/2023 Abstract Cardiology at [address] [place] [phone] Adam Mayes RN Social History Tobacco Use [...] on filedocumented in this encounter Care Teams Optomechanical Technician Relationship Specialty Start Date End Date Vanessa Christian APRN PCP - General Family Medicine 10/21/23 05/26/24 documented as of this encounter
--- OUTSIDE RECORDS SUMMARY | 2024-08-18 10:09 | XMS_ITS | Encounter Summary ---
Author Organization [facility] Address [facility] Ivana linareseileen [place] [id number] Care Team Providers Care Nicu Rn Name Role Phone Vanessa Christian MAURI Primary Care Provider [phone] Reason for Referral * Consultation (Routine) - Closed Specialty Diagnoses / Procedures Referred By Contac t Referred To Contact Cardiac Surgery Diagnoses Nonrheumatic aortic valve stenosis significant - TAVR ( defers to Card Surg d/t age) Errol Loya MD [facility] [place] [address] Zak Farmer MD [facility] [place] [address] Referral ID Status Reason Start Date Expiration Date V isits Requested Visits Authorized [id number] Closed Consult, Test & Treat 10/21/2023 10/20/2024 1 1 Reason for Visit * Reason Comments Chest Pain Shortness of Breath Aortic Stenosis Encounter Details Date Type Department Care Team (Late st Contact Info) Description 10/21/2023 1:20 PM EST Office Visit Cardiology at [address] [address] Errol Loya MD [facility] [place] [place] [address] Nonrheumatic aortic valve stenosis Social History Tobacco [...] findings Gastroesophageal reflux Nevus of face Right yazdanism Hypertension HLD (hyperlipidemia) MEDICATIONS: Current Outpatient Medications [...] meantime will refer to T at [facility] for [...] meantime will refer to T at [facility] for [...] disorders documented in this encounter Care Teams Nicu Rn Relationship Specialty Start Date End Date Vanessa Christian APRN PCP - General Family Medicine 10/21/23 05/26/24 documented as of this encounter
--- OUTSIDE RECORDS SUMMARY | 2024-08-18 10:09 | XMS_ITS | Encounter Summary ---
Author Organization [facility] [place] [address] Care Team Providers Care Electronic Equipment Maint Tech Name Role Phone Vanessa Christian APRN Primary Care Provider [phone] Encounter Details Date Type Department Care Team (Late st Contact Info) Description 01/10/2024 Orders [place] [phone] Lawson Napoles PA [facility] [address] Screening for cardiovascular condition; Aortic valve stenosis, [...] unspecified documented in this encounter Care Teams Electronic Equipment Maint Tech Relationship Specialty Start Date End Date Vanessa Christian APRN PCP - General Family Medicine 10/21/23 05/26/24 documented as of this encounter
--- OUTSIDE RECORDS SUMMARY | 2024-08-18 10:09 | XMS_ITS | Data Portability ---
Author Organization [place] - [facility] Address [address] [place] [address] Care Team Providers Care Agency Owner Name Role Phone APARNA JORDAN Primary Care Provider [phone] SOFIA MCALLISTER Dentist Assessment No assessment recorded. Plan of Treatment Reminders Order Date Submit Date Provider Last Modified By Organization Details Last Modified Time Details Appointments None recorded . Lab magnesiu m, serum or plasma 024 12/18/19 24 [email or web address] [facility] (Registration ), [address] [place] [address] [place], [address], 4 14:25:25 BMP, serum or plasma 024 12/18/19 24 [email or web address] [facility] (Registration ), [address] [place] [address] [place], [address], 4 14:25:24 Referral None recorded . Procedures None recorded . Surgeries None recorded . Imaging None recorded . Medication Orders None recorded . Patient TargetsNo targets recorded. Patient Instructions Encounter Date Encounter Id Patient Instructions Last Modified By Organization Details Last Modified Time 09/19/2023 [id number] SCHEDULE FOLLOW UP IN 3 MONTHS IF YOU DONT HEAR FROM THE CARDIOLOGY DEPT THIS WEEK CALL [facility] AND LET THEM KNOW IF YOUR BREATHING GETS WORSE- GO TO THE ER, DONT OVER DO THINGS PHYSICALLY EXPECT A CALL FROM SARA ZAFAR RE: UPDATING YOUR POWER OF JACK MACHINE OPERATOR (NEED 2 WITNESSED SIGNATURES) Not available 09/19/2023 09:25:07 12/18/2023 [id number] Karlos: expect a call from the STructural heart team at [facility] drink at least 6 [...] 9.3 mg/dL 8.5-10 .1 normal Not Available [address] [place], [address] 12/18/2023 17:09:55 12/18/19 24 12/18/2023 LASIC METAB OLIC PANEL glucose 90 mg/dL 74-106 normal Not Available Baljit montemayor [address] [place], [address] 12/18/2023 17:09:55 12/18/19 24 12/18/2023 LASIC METAB OLIC PANEL BUN 14 mg/dL 7-18 normal Not Available Baljit montemayor [address] [place], [address] 12/18/2023 17:09:55 12/18/19 24 12/18/2023 LASIC METAB OLIC PANEL creatinine 1.0 mg/dL 0.70-1 .30 normal Not Available [address] [place], [address] 12/18/2023 17:09:55 12/18/19 24 12/18/2023 LASIC METAB [...] young er-ag ed adult s. Not Available [address] [place], [address] 12/18/2023 17:09:55 12/18/19 24 12/18/2023 LASIC METAB OLIC PANEL sodium 139 mmol/ L 136-14 5 normal Not Available [address] [place], [address] 12/18/2023 17:09:55 12/18/19 24 12/18/2023 LASIC METAB OLIC PANEL potassium 4.9 mmol/ L 3.5-5. 1 normal Not Available [address] [place], [address] 12/18/2023 17:09:55 12/18/19 24 12/18/2023 LASIC METAB OLIC PANEL chloride 104 mmol/ L 98-107 normal Not Available [address] [place], [address] 12/18/2023 17:09:55 12/18/19 24 12/18/2023 LASIC METAB OLIC PANEL CO2 30.9 mmol/ L 21.0-3 2.0 normal Not Available [address] [place], [address] 12/18/2023 17:09:55 12/18/19 24 12/18/2023 LASIC METAB OLIC PANEL anion gap 4.1 mmol/ L 3-11 normal Not Available [address] [place], [address] 12/18/2023 17:09:55 12/18/19 24 12/18/2023 MAGNE SIUM magnesium 1.8 mg/dL 1.8-2. 4 normal Not Available [address] [place], [address] 12/18/2023 17:09:56 07/27/20 24 07/27/2024 LIPID 2 cholesterol 131 mg/dL <200 Not Available [address] [place], [address] 07/27/2024 11:59:38 07/27/20 24 07/27/2024 LIPID 2 triglyceride 162 mg/dL <150 high Not Available [address] [place], [address] 07/27/2024 11:59:38 07/27/2007/27/2024 LIPID 2 HDL cholesterol 35 mg/dL 40-60 low Not Available Dominique blackburn [address] [place], [address] 07/27/2024 11:59:38 07/27/2007/27/2024 LIPID 2 calculated LDL [...] 18 years or older . Not Available [address] [place], [address] 07/27/2024 11:59:38 07/27/2007/27/2024 COMPR EHENS MADYSON METAB OLIC PANEL calcium 9.2 mg/dL 8.5-10 .1 normal Not Available [address] [place], [address] 07/27/2024 11:59:38 07/27/2007/27/2024 COMPR EHENS MADYSON METAB OLIC PANEL glucose 83 mg/dL 74-106 normal Not Available Baljit montemayor [address] [place], [address] 07/27/2024 11:59:38 07/27/2007/27/2024 COMPR EHENS MADYSON METAB OLIC PANEL BUN 20 mg/dL 7-18 high Not Available Baljit montemayor [address] [place], [address] 07/27/2024 11:59:38 07/27/2007/27/2024 COMPR EHENS MADYSON METAB OLIC PANEL creatinine 1.0 mg/dL 0.70-1 .30 normal Not Available [address] [place], [address] 07/27/2024 11:59:38 07/27/2007/27/2024 COMPR EHENS MADYSON METAB [...] young er-ag ed adult s. Not Available [address] [place], [address] 07/27/2024 11:59:38 07/27/2007/27/2024 COMPR EHENS MADYSON METAB OLIC PANEL total protein 6.8 g/dL 6.4-8. 2 normal Not Available [address] [place], [address] 07/27/2024 11:59:38 07/27/2007/27/2024 COMPR EHENS MADYSON METAB OLIC PANEL albumin 3.5 g/dL 3.4-5. 0 normal Not Available [address] [place], [address] 07/27/2024 11:59:38 07/27/2007/27/2024 COMPR EHENS MADYSON METAB OLIC PANEL bilirubin, total 0.77 mg/dL 0.2-1. 0 normal Not Available [address] [place], [address] 07/27/2024 11:59:38 07/27/2007/27/2024 COMPR EHENS MADYSON METAB OLIC PANEL alk phos 84 U/L 46-116 normal Not Available [address] [place], [address] 07/27/2024 11:59:38 07/27/2007/27/2024 COMPR EHENS MADYSON METAB OLIC PANEL sodium 141 mmol/ L 136-14 5 normal Not Available [address] [place], [address] 07/27/2024 11:59:38 07/27/2007/27/2024 COMPR EHENS MADYSON METAB OLIC PANEL potassium 4.8 mmol/ L 3.5-5. 1 normal Not Available [address] [place], [address] 07/27/2024 11:59:38 07/27/2007/27/2024 COMPR EHENS MADYSON METAB OLIC PANEL chloride 105 mmol/ L 98-107 normal Not Available [address] [place], [address] 07/27/2024 11:59:38 07/27/2007/27/2024 COMPR EHENS MADYSON METAB OLIC PANEL CO2 30.9 mmol/ L 21.0-3 2.0 normal Not Available [address] [place], [address] 07/27/2024 11:59:38 07/27/2007/27/2024 COMPR EHENS MADYSON METAB OLIC PANEL anion gap 5.1 mmol/ L 3-11 normal Not Available [address] [place], [address] 07/27/2024 11:59:38 07/27/2007/27/2024 COMPR EHENS MADYSON METAB OLIC PANEL AST 20 U/L 15-37 normal Not Available Baljit montemayor [address] [place], [address] 07/27/2024 11:59:38 07/27/2007/27/2024 COMPR EHENS MADYSON METAB OLIC PANEL ALT 32 U/L 16-63 normal Not Available Baljit montemayor [address] [place], [address] 07/27/2024 11:59:38 07/27/2007/27/2024 CREAT INE KINAS E creatine kinase 133 U/L 39-308 normal Not Available [facility] [address] , [place], [address] 07/27/2024 11:48:30 09/11/2012/05/2022 trans -thor acic echoc ardio gram (TTE) (PROC ) No observ ation record ed. [email or web address] [facility] Xray [address] , [place], [address], 09/13/2023 09:29:52 09/11/20 23 06/01/2022 XR, hip, unila teral No observ ation record ed. [email or web address] Not Available 2022 09:29:19 09/11/2012/06/2019 , echoc ardio gram No observ ation record ed. [email or web address] [facility]- Cardiology [address] [place], [address], 09/13/2023 09:28:49 07/27/20 24 07/27/2024 x-ray imagi ng repor t Flor t Name: Kanu Hugo Unit #: [id number] Loc: DI Orderi ng Provid er: Dc Louis DO Accoun t #: [id number] Status : REG CLI Primar y Care Provid er: Danna Jordan PHYSICAL THERAPY ASSISTANT Date of Exam: 07/08 10/30 Sex: M [...] Vascul ar calcif icatio n is noted narcotics detective iorly in the poplit eal artery . [...] the addres s above. Thank- you. INTERFACE [facility] [address], [place], [address] 07/27/2024 18:10:30 Result Notes None recorded. Problems Name Problem SNOMED Code Status Onset Date Resolution Date Notes Provider Name and Address Organization Details Recorded Time Gastroes ophageal reflux disease without esophagi tis 092672331 Active 2022 Problem Code: K21.9; Problem Code Type: ICD-10; Not Available [facility] 4 05:35:57 Glaucoma 43325781 Active 2022 Problem Code: H40.9; Problem Code Type: ICD-10; Not Available [facility] 4 05:35:57 Hyperlip idemia 98069314 Active 2022 Problem Code: E78.5; Problem Code Type: ICD-10; Not Available [facility] 4 05:35:57 [facility] hyperten marisol 83152723 Active 2022 Problem Code: I10; Problem Code Type: ICD-10; Not Available [facility] 4 05:35:57 Pain of left hip joint 08244945708 9100 Active 2022 Problem Code: M25.552; Problem Code Type: ICD-10; Not Available [facility] 4 05:35:57 Idiopath ic osteoart hritis 481209794 Active 2022 Problem Code: M16.12; Problem Code Type: ICD-10; Not Available [facility] 4 05:35:57 Inguinal hernia 088176264 Active 2022 Problem Code: K40.90; Problem Code Type: ICD-10; Not Available [facility] 4 05:35:57 Heart murmur 89182174 Active 2022 Problem Code: R01.1; Problem Code Type: ICD-10; Not Available [facility] 4 05:35:57 Dyspnea 753477230 Active 2022 Problem Code: R06.09; Problem Code Type: ICD-10; Not Available [facility] 4 05:35:57 Chest pain 98590869 Active 2022 Problem Code: R07.89; Problem Code Type: ICD-10; Not Available [facility] 4 05:35:57 Melanocy tic nevus 832565615 Active 2022 Problem Code: D22.9; Problem Code Type: ICD-10; Not Available [facility] 4 05:35:57 Aortic stenosis , non-rheu matic 816054346 Active 2022 Problem Code: I35.0; Problem Code Type: ICD-10; Not Available [facility] 4 05:35:58 Aortic stenosis , non-rheu matic 974167109 Completed 202208/14/2023 Problem Code: I35.0; Problem Code Type: ICD-10; Not Available [facility] 4 05:35:58 Indigest ion 654943951 Active 2023 GLORIA CAMP LPN null, [facility] 4 08:48:57 Coronary artery bypass grafts x 3 Active 2023 [place] Duran RN null, [facility] 4 10:30:01 At increase d risk of atrial fibrilla tion 354152262 Active [address], [place], [address] , [facility] 4 13:52:01 Anemia 188586824 Active [address], [place], [address] , [facility] 4 13:54:39 Problem Notes None recorded. Procedures Surgical History Date Name Laterality Status Provider Name and Address Organization Details Recorded Time coronary artery bypass graft completed Hudson Reeder MA [facility] 03/04/2024 14:54:09 Imaging Results Imaging Date Name Status LastModified by Organization Details LastModified Time 12/05/2022 trans-thoracic echocardiogram (TTE) (PROC) completed [address] Xray [address] , [place], [address], 09/13/2023 09:29:52 06/01/2022 XR, hip, unilateral [place] [address] Information not available 09/13/2023 09:29:19 12/06/2019 US, echocardiogram completed [address]- Cardiology [address] [place] [address] [place], [address], 09/13/2023 09:28:49 07/27/2024 x-ray imaging report completed INTERFACE [address] [place], [address] 07/27/2024 18:10:30 Procedure Notes None recorded. Medical [...] es. Take 1 hr prior. Started by [facility]. Not Available Not Available [...] BY MOUTH DAILY 02/24 completed stopped by [facility] Not Available Not Available [...] hours by oral route as needed. active [facility] Not Available Not Available No t Available Aspirin Childrens 81 mg chewable tablet Take 1 tablet by mouth once a day active Not Available Not Available No t Available lisinopri l 5 mg tablet TAKE 1 TABLET BY MOUTH EVERY DAY 02/24 completed stopped by [facility] Not Available Not Available [...] day by oral route. active started by [facility] Not Available Not Available Not Available dorzolami de 2 % (PF) eye drops 1 drop both eyes bid 12/17 completed Not Available Not Available Not Available Vitals Date Recorded Body weight Body mass index (BMI) Body height Heart rate Systolic blood pressure Diastolic blood pressure Provider Name and Address Organization Details Last Updated DateTime 3 89638.7 8 g 23.7 kg/m2 167.64 cm 64 /min 110 mm[Hg] 60 mm[Hg] GLORIA CAMP LPN [facility] 3 08:48:49 Date Recorded Body height Body mass index (BMI) Body weight Heart rate Systolic blood pressure Diastolic blood pressure Provider Name and Address Organization Details Last Updated DateTime 4 167.64 cm 24.6 kg/m2 06422.4 4 g 60 /min 112 mm[Hg] 80 mm[Hg] GLORIA CAMP LPN [facility] 4 08:38:13 Date Recorded Body height Body mass index (BMI) Body weight Heart rate Oxygen saturation Oxygen saturation in Arterial blood by Pulse oximetry Systolic blood pressure Diastolic blood pressure Provider Name and Address Organization Details Last Updated DateTime 4 167.64 cm 22.6 kg/m2 27313.6 5 g 63 /min 99 % 99 % 102 mm[Hg] 54 mm[Hg] Hudson Reeder MA [facility] 4 10:27:28 Social History Question Answer Notes LastModified by Organizat ion Details LastModified Time Tobacco Smoking Status Former Smoker Hudson Reeder MA null, [place] - [facility]. 03/06/2024 10:24:50 Do You Have An Advance Directive? Yes Registered 08/15/23 Updated 01/12/24 Information not available 01/15/2024 When Did You Quit Smoking? 11-15years sincelastc igarette [email or web address] Information not available 03/06/2024 Do You Have A Medical Power Of Cd Storage And Materials Make Up Helper? Yes Received 08/30/23, Scanned. Copies Sent To [facility] And Patient 09/02/23. Information not available 09/02/2023 What Was The Date Of Your Most Recent Tobacco Screening? 03/06/2024 [email or web address] Information not available 03/06/2024 What Is Your Current Pack Years? 30ormorepa ckyears [email or web address] Information not available 03/06/2024 How Much Tobacco Do You Smoke? 1 PPD [email or web address] Information not available 03/06/2024 How Many Years Have You Smoked Tobacco? 40 [email or web address] Information not available 03/06/2024 Do You Or Have You Ever Used Any Other Forms Of Tobacco Or Nicotine? No [email or web address] Information not available 03/06/2024 Sex: Male Functional [...] Recorded Time Tdap 08/26/2013 completed Not Available [facility] 05:30:17 Td(adult) unspecified formulation 11/21/2022 completed [...] completed Not Available [facility] 10/18/2023 05:30:18 influenza, unspecified formulation 07/28/2020 completed Not Available [facility] 10/18/2023 05:30:18 influenza, unspecified formulation 08/05/2019 completed Not Available [facility] 10/18/2023 05:30:18 influenza, unspecified formulation 08/12/2018 completed Not Available [facility] 10/18/2023 05:30:18 Past Encounters Encounter ID Performer Location Encounter Start Date Encounter Closed Date Diagnosis/Indication Diagnosis SNOMED-CT Code Diagnosis ICD10 Code [id number] [address] [address] 09/19/2023 08:39:51 09/19/2023 09:17:42 Aortic valve stenosis 46786799 I35.0 Essential hypertension 15929777 I10 [id number] [address] [address] 12/18/2023 08:23:47 12/18/2023 09:29:09 Aortic stenosis, non-rheumatic 759665930 I35.0 Essential hypertension 96732087 I10 Nonulcer dyspepsia 58340 07 K30 Cramp in lower leg [address] 8009 R25.2 [id number] TATYANA LEDEZMA MD [address] [address] 03/06/2024 10:15:07 03/06/2024 11:14:28 Postoperative visit 534818863 Z48.89 Aortic rosa m nosis, non-rheumatic 916251701 I35.0 Stented co ronary artery 970759377 Z95.5 At [facility] risk of atrial fibrillation 688555998 Z91.89 Anemia 345015286 D64.9 Health Concerns Section Related Observation LastModified by Organization Detai ls LastModified Time None Recorded Concern Status LastModified by Organization Details LastModified Time None Recorded Advance Directives Directive Y: Registered 08/15/23Updated 01/12/24 Payers Encounter Date Sequence Insurance Name Policy Number Policy Alicia Covered Member ID Alicia Member ID Guarantor Name 12/18/2023 1 [facility] [id number] Karlos C Patenaude [id number] Karlos C Patenaude 03/06/2024 1 [employer] [id number] Karlos C Patenaude [id number] Karlos C Patenaude Notes Date Note Type Note Provider Name and Address Organization Details Recorded Time 09/19/2023 text/html HPI Notes: 63-year-old man here for follow-up hypertension, severe aortic stenosis., He works full-time at [employer]. He lives at home with his dog. He has not heard from [facility] cardiology? referred mid-August. He did decrease his lisinopril to 5 mg, home SBPs running 110- 138, no change in slight lightheadedness with change position. He does continue to get dyspnea on exertion, denies chest pain, resolves fairly quickly no peripheral edema. 12/05/2022 [facility] transthoracic echocardiogram; there is moderate to severe aortic stenosis with disparate indicators. The calculated valve area is 0.8 cm2 is consistent with severe stenosis. Planimetry confirms valve area to 0.9 cm2. The mean gradient of 28 mmHg and peak velocity of 3.6M/S are consistent with moderate stenosis. There is trivial to mild aortic insufficiency. Aparna lizarraga [facility]. 09/19/2023 13:31:38 12/18/2023 text/html HPI Notes: 63-year-old man here for follow-up hypertension, severe aortic stenosis., He works full-time at [employer]. He lives at home with his dog. 12/05/2022 [facility] transthoracic echocardiogram; there is moderate to [...] repair a number of years ago at [facility], it is starting to cause some discomfort. Reports leg cramps at nighttime intermittently, improves when he has a Gatorade during the daytime and Ovaltine in his coffee. Aparna lizarraga, [facility], [facility]. 12/18/2023 11:43:00 03/06/2024 text/html HPI Notes: Ana Paula marlow is here today for a postop evaluation TATYANA LEDEZMA MD [address], [place], [address], [facility], [facility]. 03/08/2024 13:57:34
--- OUTSIDE RECORDS SUMMARY | 2024-08-18 10:09 | XMS_ITS | Encounter Summary ---
Author [facility] [place] [address] Care Team Providers Care Material Coordinator Name Role Phone Victor M Lafleur MD Primary Care Provider [phone] Encounter Details Date Type Department Care Team (Late st Contact Info) Description 09/26/2023 Abstract Cardiology at [address] [address] Karen Billy, RN Nonrheumatic aortic [...] face documented in this encounter Care Teams Material Coordinator Relationship Specialty Start Date End Date Victor M Lafleur MD PCP - General 10/02/13 10/20/23 documented as of this encounter
--- OUTSIDE RECORDS SUMMARY | 2024-08-18 10:09 | XMS_ITS | Encounter Summary ---
Author Organization [facility] Address [facility] [place] [address] Care Team Providers Care Maori Liaison Adviser Name Role Phone Vanessa Christian MAURI Primary Care Provider [phone] Reason for Visit * Consultation (Routine) - Closed Specialty Diagnoses / Procedures Referred By Contac t Referred To Contact Cardiac Surgery Diagnoses Nonrheumatic aortic valve stenosis significant - TAVR ( defers to Card Surg d/t age) Neftali Ernandez MD [facility] [place] [address] Zak Farmer MD [facility] [place]I[facility] [address] Referral ID Status Reason Start Date Expiration Date V isits Requested Visits Authorized [id number] Closed Consult, Test & Treat 10/21/2023 10/20/2024 1 1 Encounter Details Date Type Department Care Team (Late st Contact Info) Description 01/09/2024 1:40 PM EDT Office [place] [address] Zak Farmer MD [facility] [address] Nonrheumatic aortic valve stenosis Social [...] office. Best personal regards, Zak Farmer MD [phone] In aggregate 55 minutes were spent evaluating [...] questions please contact the health home care liaison that requested your imaging first. [...] have questions please contactthe health home care liaison that requested your imaging first. Zak Farmer [...] CHEMISTRY ORDERABLE S [facility] [place] [address] * Hepatic Function Panel (01/09/2024 2:58 PM [...] MD CHEMISTRY ORDERABLE S Performing Organization Address [facility] Co de Phone Number [facility] [place] [address] * Prothrombin Time (01/09/2024 2:58 PM EDT) [...] MD HEMATOLOGY ORDERABL ES Performing Organization Address [facility] Co de Phone Number [facility] [place] [address] * Type and Screen Future Surgery, [facility] SAME DAY PROGRAM ONLY) (01/09/2024 2:58 PM EDT) ABORH Type O NEGATIVE [facility] Patient BB History Not Found [facility] Expires at [id number] on: 02-20-2024 [facility] Ab Screen Interp Negative [facility] Blood 01/09/2024 2:58 PM EDT 01/09/2024 2:58 PM EDT Narrative Resulting Agency Comment Spec In Lab Zak Farmer MD [facility] Performing Organization Address City/State/[facility] Co de Phone Number [facility] [place] [address] documented in this encounter Visit Diagnoses Diagnosis Nonrheumatic aortic valve stenosis Aortic valve disorders Nonrheumatic aortic valve stenosis Aortic valve disorders documented in this encounter Care Teams Maori Liaison Adviser Relationship Specialty Start Date End Date Vanessa Christian, FIRMWARE TEST ENGINEER PCP - General Family Medicine 10/21/23 05/26/24 documented as of this encounter
--- OUTSIDE RECORDS SUMMARY | 2024-08-20 10:35 | XMS_ITS | Encounter Summary ---
Author Organization [facility] Address [facility] [place] [address] Care Team Providers Care Brick Tender Name Role Phone Vanessa Christian Lane DOTSON Primary Care Provider [phone] Reason for Visit * Reason Comments Coronary Artery Disease Aortic Stenosis Encounter Details Date Type Department Care Team (Latest Contact Info) Description 05/27/2024 11:00 AM EDT Office Visit Cardiology at [address] [place] [phone] Neftali Ernandez MD [facility] [place] [address] ASCVD (arteriosclerotic cardiovascular disease); Nonrheumatic aortic valve stenosis Social History Tobacco Use Types Packs/Day Years Used Date Smoking Tobacco: Former Cigarettes Smokeless Tobacco: Never Comments:Quit 15 + years ago Alcohol Use Standard Drinks/Week Comments Yes 0 (1 standard drink = 0.6 oz pur e alcohol) rare [facility] Utilities Answer Date Recorded In the past 12 months has e [employer], gas, oil, or water [employer] threatened to shut off services in your [...] disorders documented in this encounter Care Teams Brick Tender Relationship Specialty Start Date End Date Vanessa Christian, MAURI [address] [place] [address] PCP - General Family Medicine 05/27/24 documented as of this encounter
--- OUTSIDE RECORDS SUMMARY | 2024-08-20 10:35 | XMS_ITS | Encounter Summary ---
Author Organization [facility] Address [facility] [place] [address] Care Team Providers Care Home Attendant Name Role Phone Vanessa Christian MAURI Primary Care Provider [phone] Encounter Details Date Type Department Care Team [...] on filedocumented in this encounter Care Teams Home Attendant Relationship Specialty Start Date End Date Vanessa Christian APRN [address] [place] [address] PCP - General Family Medicine 05/27/24 documented as of this encounter
--- OUTSIDE RECORDS SUMMARY | 2024-08-20 10:35 | XMS_ITS | Encounter Summary ---
Author Organization [facility] Address [address] [place] [address] Care Team Providers Care First Aid Officer Name Role Phone Filidayna Vanessa Dayna MONCADA Primary Care Provider [phone] Encounter Details Date Type Department Care Team (Late st Contact Info) Description 10/24/2023 Lab Requisition [facility] Pathology & Laboratory Medicine - [address] [address] Oscar Nichole MD [address] [place] [phone] Factitial dermatitis Social History Tobacco Use Types [...] LABORATORY SERVICES Final Diagnosis A. SKIN OF RELIGIOUS, LEFT, SHAVE BIOPSY: - Seborrheic keratosis, pigmented. [...] the above diagnosis. 10/28/2023 11:24 [facility] at 1124 Microscopic Description The stratum corneum is thickened by compact and basketweave orthokeratosis with formation of horn pseudocysts. The epidermis is acanthotic with formation of broad and anastomosing trabeculae. The trabeculae are composed of basaloid keratinocytes with round uniform nuclei. The keratinocytes have a variable amount of melanin pigment. 10/28/2023 11:24 [facility] Clinical History Pigmented 2 cm patch; clinical diagnosis code: L98.1 10/28/2023 11:24 [facility] Gross Description A. Received [...] Anderson 10/25/2023 8:47 10/28/2023 11:24 [facility] Performing Lab [facility] 10/28/2023 11:24 [facility] Scanned Images 10/28/2023 11:24 [facility] Tissue SPECIMEN FROM SKIN / Unknown 10/24/2023 14:30 EST 10/24/2023 22:04 EST us Oscar Nichole MD PATHOLOGY ORDERABLES Final Resul t [facility] [address] [place] [address] documented in this encounter Visit Diagnoses Diagnosis Factitial dermatitis Dermatitis factitia (artefacta) documented in this encounter Care Teams First Aid Officer Relationship Specialty Start Date End Date Vanessa Christian NP [address] [place] [address] PCP - General Family Medicine - Primary Care 10/07/23 documented as of this encounter
--- OUTSIDE RECORDS SUMMARY | 2024-08-20 10:35 | XMS_ITS | Encounter Summary ---
Author Organization [facility] Address [facility] [place] [address] Care Team Providers Care Expense Clerk Name Role Phone Vanessa Christian MAURI Primary Care Provider [phone] Encounter Details Date Type Department Care Team [...] on filedocumented in this encounter Care Teams Expense Clerk Relationship Specialty Start Date End Date Vanessa Christian APRN PCP - General Family Medicine 10/21/23 05/26/24 documented as of this encounter
--- OUTSIDE RECORDS SUMMARY | 2024-08-20 10:35 | XMS_ITS | Clinical Summary ---
Author Organization [facility] Address [facility] [place] [address] Care Team Providers Care Chief Architect Name Role Phone Vanessa Christian Lane DOTSON Primary Care Provider [phone] Allergies No known active allergies Medications Medication [...] the meantime will refer to SHT at [facility] for further evaluation. Logistics and preliminary review of TONY were reviewed with patient. - Refer to SHT Hypertension 08/14/2023 Resolved Problems Problem Noted Date Diagnosed Date Resolved Date Nevus of face 09/26/2023 05/27/2024 Overview (09/26/2023): Right sikh Chest pressure 08/14/2023 10/21/2023 SILVA (dyspnea on exertion) 08/14/2023 HLD (hyperlipidemia) 08/14/2023 024 Encounters Date Type Department Care Team Description 05/27/2024 11:00 AM EDT Office Visit Cardiology at [address] [place] [address] Neftali Ernandez MD ASCVD (arteriosclerotic [...] PCV) 2024 Medical Devices Implanted Type Area Master Fisher Device Identifier Shelf Expiration Date Model / Serial / Lot Cable,Cut,Edg ,Blnt,Ss,3tpr ([id number]) - [id number] Implanted:Qty : 1 on 02/17/2024 by Zak Farmer MD at [facility] IMPLANTS Midline: Chest [employer] - [id number] 09/02/2028 [id number] / / [id number] Valve Coronary Aortic 23mm Tissue Trnscath Biopros Inspiris ([id number]) (Autoreq) - [id number] Implanted:Qty : 1 on 02/17/2024 by Zak Farmer MD at [facility] IMPLANTS Heart [employer] - TSAI LI 09/15/2027 [id number] 23MM / [id number] / Procedures Procedure Name Priority Date/Time Associated [...] (Bezet) 367 ms MUSE SYSTEM Calculated P [place] 12 degrees MUSE SYSTEM Calculated R [place] 27 degrees MUSE SYSTEM Calculated T [place] 62 degrees MUSE SYSTEM INTERPRETATION Sinus bradycardia with 1st degree A-V block Otherwise normal ECG When compared with ECG of 12-MAR-2024 14:35, T wave inversion no longer evident in Anterior leads Confirmed by MD Ernandez Daniel ([id number]) on 06/01/2024 8:36:17 AM MUSE SYSTEM 05/27/2024 [...] Status decision made by: Patient Care Teams Chief Architect Relationship Specialty Start Date End Date Vanessa Christian APRN [address] [place] [address] PCP - General Family Medicine 05/27/24
--- OUTSIDE RECORDS SUMMARY | 2024-08-20 10:35 | XMS_ITS | Clinical Summary ---
Author Organization [facility] Address [address] [place] [address] Care Team Providers Care Waistband Setter Name Role Phone Filidayna Vanessa Sherman NP Primary Care Provider [phone] Social History Tobacco Use Types Packs/Day Years [...] 75+ series) 2034 Insurance [employer] Care Teams Waistband Setter Relationship Specialty Start Date End Date Vanessa Christian, ANTWAN [address] [place] [phone] PCP - General Family Medicine - Primary Care 10/07/23
--- OUTSIDE RECORDS SUMMARY | 2024-08-20 10:35 | XMS_ITS | Referral Summary ---
Author Organization [facility] Address [address] [place] [address] Care Team Providers Care Heat Plant Specialist Name Role Phone Vanessa Christian Lane MONCADA Primary Care Provider [phone] Social History Tobacco Use Types Packs/Day Years Used Date Smoking Tobacco: Never Assessed Sex and Gender Information Value Date Recorded Sex Assigned at Not on file Legal Sex Male 22:02 EST Gender Identity Not on file Sexual Orientation Not on file Plan of Treatment Not on file Insurance R Care Teams Heat Plant Specialist Relationship Specialty Start Date End Date Vanessa Christian, ANTWAN [address] [place] [phone] PCP - General Family Medicine - Primary Care 10/07/23
--- OUTSIDE RECORDS SUMMARY | 2024-08-20 10:36 | XMS_ITS | Encounter Summary ---
Author Organization [facility] Address [facility] [place] [address] Care Team Providers Care Meter Record Clerk Name Role Phone Gino Vanessa Lane DOTSON Primary Care Provider Encounter Details Date Type Department Care Team (Late st Contact Info) Description 02/24/2024 Orders Only Cardiac Surgery [facility] [place] [phone] Trudi Lester APRN [facility] [place] [address] Social History Tobacco Use Types Packs/Day Years Used Date Smoking Tobacco: Former Cigarettes Smokeless Tobacco: Never Comments:Quit 15 + years ago Alcohol Use Standard Drinks/Week Comments Yes 0 (1 standard drink = 0.6 oz pur e alcohol) rare [facility] Utilities Answer Date Recorded In the past 12 months has e Rising, gas, oil, or water [employer] threatened to shut off services in your [...] on filedocumented in this encounter Care Teams Meter Record Clerk Relationship Specialty Start Date End Date Vanessa Christian APRN PCP - General Family Medicine 10/21/23 05/26/24 documented as of this encounter
--- OUTSIDE RECORDS SUMMARY | 2024-08-20 10:36 | XMS_ITS | Encounter Summary ---
Author Organization [facility] Address [facility] [place] [address] Care Team Providers Care Electrochemist Name Role Phone Vanessa Christian MAURI Primary Care Provider [phone] Encounter Details Date Type Department Care Team (Latest Contact Info) Description 03/12/2024 1:30 PM EDT - 03/12/2024 11:59 PM EDT Hospital Encounter XRay at [address] [place] [address] Coronary artery disease, unspecified vessel or lesion type, unspecified whether angina present, unspecified whether augustine or transplanted heart Discharge Disposition: Home Social History Tobacco Use Types Packs/Day Years Used Date Smoking Tobacco: Former Cigarettes Smokeless Tobacco: Never Comments:Quit 15 + years ago Alcohol Use Standard Drinks/Week Comments Yes 0 (1 standard drink = 0.6 oz pur e alcohol) rare [facility] Utilities Answer Date Recorded In the past 12 months has e [employer], gas, oil, or water [employer] threatened to shut off services in your [...] type, unspecified whether angina present, unspecified whether augustine or transplanted heart documented in this encounter Results * XR Chest PA & Lateral (Generic) (03/12/2024 1:42 PM EDT) WORKSTATION ID [id number] RAD Anatomical Region Laterality Modality Chest N/A [...] Electronically signed by: Augie Sanchez MD, [facility] ([phone]), at 03/13/2024 8:28 AM Narrative 03/13/2024 8:28 AM EDT EXAMINATION: XR CHEST PA AND LATERAL (GENERIC) CLINICAL HISTORY: s/p cabg eval effusions I25.10, 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
--- OUTSIDE RECORDS SUMMARY | 2024-08-20 10:36 | XMS_ITS | Encounter Summary ---
Author Organization [facility] Address [facility] [place] [address] Care Team Providers Care Maintenance Man Name Role Phone Vanessa Christian MAURI Primary Care Provider [phone] Encounter Details Date Type Department Care Team [...] on filedocumented in this encounter Care Teams Maintenance Man Relationship Specialty Start Date End Date Vanessa Christian APRN PCP - General Family Medicine 10/21/23 05/26/24 documented as of this encounter
--- OUTSIDE RECORDS SUMMARY | 2024-08-20 10:36 | XMS_ITS | Encounter Summary ---
Author Organization [facility] Address [facility] [place] [address] Care Team Providers Care Manual Tester Name Role Phone Vanessa Christian MAURI Primary Care Provider [phone] Encounter Details Date Type Department Care Team (Late st Contact Info) Description 03/12/2024 2:40 PM EDT Office Visit [place] [phone] Zak Farmer MD [facility] [place] [address] Coronary artery disease, unspecified vessel or lesion type, unspecified whether angina present, unspecified whether [place] or transplanted heart Social History Tobacco Use Types Packs/Day Years Used Date Smoking Tobacco: Former Cigarettes Smokeless Tobacco: Never Comments:Quit 15 + years ago Alcohol Use Standard Drinks/Week Comments Yes 0 (1 standard drink = 0.6 oz pur e alcohol) rare [facility] Utilities Answer Date Recorded In the past 12 months has e [employer], gas, oil, or water [email or web address] threatened to shut off services in your [...] 2:40 PM EDT To: MD Vanessa Coles, JEWELRY DEPARTMENT SUPERVISOR Re; Karlos Santa ( 1960) We had [...] office. Best personal regards, Zak Farmer MD [phone] documented in this encounter Plan of Treatment Not on file documented as of this encounter Procedures Procedure Name Priority Date/Time Associated Diagnosis Comments EKG 12-LEAD Routine 03/12/2024 2:35 PM EDT Coronary artery disease, unspecified vessel or lesion type, unspecified whether angina present, unspecified whether chefornak or transplanted heart documented in this encounter Results * EKG 12 Lead (03/12/2024 2:35 PM EDT) Ventricular rate 59 BPM MUSE SYSTEM Atrial Rate 59 BPM MUSE SYSTEM P-R Interval 190 ms MUSE SYSTEM QRS Duration 92 ms MUSE SYSTEM Q-T Interval 406 ms MUSE SYSTEM QTC Calculated (Bezet) 401 ms MUSE SYSTEM Calculated P [place] -12 degrees MUSE SYSTEM Calculated R [place] 24 degrees MUSE SYSTEM Calculated T [place] 74 degrees MUSE SYSTEM INTERPRETATION Sinus bradycardia T wave abnormality, consider anterior ischemia Abnormal ECG When compared with ECG of 17-FEB-2024 13:24, UT interval has decreased T wave inversion now evident in Anterior leads Confirmed by Paul Guzman ([id number]) on 03/15/2024 8:36:23 AM MUSE SYSTEM 03/12/2024 2:35 PM EDT 03/15/2024 8:36 AM EDT Zak Farmer MD ECG ORDERABLES [employer] SYSTEM documented in this encounter Visit Diagnoses Diagnosis Coronary artery disease, unspecified vessel or lesion type, unspecified whether angina present, unspecified whether [place] or transplanted heart documented in this encounter Care Teams Manual Tester Relationship Specialty Start Date End Date Vanessa Christian, MAURI PCP - General Family Medicine 10/21/23 05/26/24 documented as of this encounter
--- OUTSIDE RECORDS SUMMARY | 2024-08-20 10:36 | XMS_ITS | Encounter Summary ---
[place] [address] Care Team Providers Care Rn Emergency Name Role Phone Apanra Jordan MAURI Primary Care Provider [phone] Reason for Referral * Diagnostic Test (Routine) - New Request Specialty Diagnoses / Procedures Referred By Contac t Referred To Contact Cardiology Diagnoses S/P AVR Procedures Echocardiogram Transthoracic Neftali Menon PA [facility] [place] [address] [facility] [place] [address] Referral ID Status Reason Start Date Expiration Date Visits Requested Visits Authorized [id number] New Request Specialty Service Requested 02/24/2024 02/23/2025 1 1 * Consultation (Routine) - Authorized Specialty Diagnoses / Procedures Referred By Contac t Referred To Contact Cardiology Diagnoses S/P AVR Hayder Graham MD [facility] [place] [address] Card[address] Rehab, [facility] [address] [place] [address] [place] [address] Referral ID Status Reason Start Date Expiration Date Visits Requested Visits Authorized [id number] Authorized Consult, Test & Treat 02/24/2024 08/22/2024 36 36 * Home Health Care (Routine) - Authorized Specialty Diagnoses / Procedures Referred By Sixto mendoza Referred To Contact Diagnoses S/P AVR Hayder Graham MD [facility] [place] [address] Referral ID Status Reason Start Date Expiration Date Visits Requested Visits Authorized [id number] Authorized Consult, Test & Treat 02/24/2024 08/22/2024 [...] MD [facility] [place] [address] [facility] Referral ID Status Reason Start Date Expiration Date Visits Re quested Visits Authorized [id number] 1 1 Encounter Details Date Type Department Care Team (Latest Contact Info) Description 02/17/2024 5:43 AM EDT - 02/24/2024 11:23 AM EDT Hospital Encounter Heart and Vascular Unit Level 4 [place] [address] Hayder Graham MD [facility] [place] [address] S/P AVR (Primary Dx); Aortic valve stenosis, [...] 1-2 weeks. Patient to follow up with Correctional Food Service Supervisor, Neftali Ernandez MD , in 2 weeks. Patient to follow up with Cardiac Surgeon, Dr. Hayder Graham, with a chest x-ray, EKG, and Echo. 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 Past Surgical History: Procedure Laterality Date PRO CABG, ARTERIAL, SINGLE N/A 02/17/2024 @CABG, USING ARTERIAL GRAFT;SINGLE ARTERIAL GRAFT (WRVU 33.75) performed by Hayder Graham MD at [facility] MAIN OR PRO CABG, ARTERY-VEIN, TWO N/A 02/17/2024 @CABG, TWO VENOUS GRAFTS & ARTERIAL GRAFT (WRVU 7.93) performed by Hayder Graham MD at [facility] MAIN OR PRO ENDOSCOPY W/VIDEO-ASST VEIN HARVEST, CABG Left 02/17/2024 ENDOSCOPIC HARVEST VEIN(S) FOR CABG (WRVU 0.31) performed by Hayder Graham MD at [facility] MAIN OR PRO REPLACEMENT PROSTHETIC AORTIC VALVE OPEN W CARDIOPULMONARY BYPASS HOMOGRF/STENT N/A 02/17/2024 @REPLACE AORTIC VALVE, OPEN, W\CPB, W\PROSTHETIC VALVE (WRVU 41.32) performed by Hayder Graham MD at [facility] MAIN OR Prior To Admission Medications [...] insufficiency. He has glaucoma. He used to [place] until about 15 years ago. He has undergone prior herniorrhaphy. 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 Major Procedures/Operations: 02/17/24 s/p avr/cabgx3 CABG x 3 JOSE->LAD SVG->dRCA SVG->OM1 EVH from LLE AVR with a 23 mm Inspiris Bioprosthesis Hospital Course: Karlos Garcia was admitted to [facility] on 02/17/2024 via the Same [...] Hayder Graham and/or the Cardiac Surgery Physician Anesthesiology Physician Assistant Team may be reached at . [...] Dr. Hayder Graham. You may use a [place] Track or treadmill but avoid any pulling [...] while being managed by your PCP and/or Correctional Food Service Supervisor. For future medication refills, please refer to your PCP and/or Correctional Food Service Supervisor after your discharge from our service. Thank you REMOVE CHEST TUBE SUTURES ON OR AFTER 03/02/24 Home oxygen therapy: N/A Follow up appointments: You should follow up with your PCP, Aparna Jordan APRN, in 1-2 weeks. Our office will schedule an appointment with your Correctional Food Service Supervisor, Neftali Ernandez MD , in 2 weeks. You have an appointment with your Cardiac Surgeon, Dr. Hayder Graham, 4 weeks with a chest x-ray, EKG, and Echo before your appointment. Cardiac Rehabilitation: Karlos Garcia was seen regarding participation in the outpatient Phase 2Cardiac Rehabilitation at [facility]. The patient agrees to a referral to this program. The referral will be sent at discharge and the patient should be contacted by the Program within 1- 2 weeks from discharge. Future Appointments and Orders Future Orders Complete By Expires Echocardiogram Transthoracic [11158 CPT(R)] 03/26/2024 09/25/2024 Process Instructions: Scheduling Instructions: Questions: Where will study be performed?: [facility] Does the patient have Congenital Heart Disease?: Does patient require sedation?: Sedation rationale: XR Chest PA & Lateral (Generic) [19191 51635 Custom] 03/26/2024 09/25/2024 Process Instructions: Scheduling Instructions: Questions: Portable exam?: Reason for exam and clinical history: s/p avr/cabg Clinical information / jerome questions for radiologist: Stat read required?: Date of injury if applicable: Requested Time: Where will study be performed?: [facility] Radiology Referral to Cardiac Rehab [[id number] Custom] As directed Process Instructions: If no progress note charted, please enter Clinical details in comments. Scheduling Instructions: Questions: My question or request is: s/p AVR/CABG. Cardiac rehab at [facility]. Referral to Home Health [REF34 Custom] As directed Process Instructions: If no progress note charted, please enter Clinical details in comments. Scheduling Instructions: Comments: Please evaluate Karlos Garcia for admission to Home Health. [address] Phone Number: Date of : 1960 Inpatient DOCUMENTATION FOR VNA SERVICES (INCLUDING THOSE PATIENTS WITH MEDICARE COVERAGE REQUIRING HOME VNA SERVICES AND/OR HOSPICE SERVICES) PATIENT'S LOCATION: Karlos Garcia [address] [employer] [phone] Creative Manager's Name: self/family In discussion with the attending physician, it is certified that this patient is under their care and that they, or a Nurse Practitioner, or Physician Anesthesiology Physician Assistant who is working directly with them, [...] for services as follows: HOME HEALTH AGENCY: [facility] [address] [place] [address] RN orders: Cardiopulmonary assessment, incisional assessment, assess [...] issues please call the Cardiology Office at [phone] FOR MEDICARE ONLY: (please delete this section [...] APRN [address] / [place] [address] . All VNA agencies which cover the area of patient's residence have been reviewed, either verbally or in writing, and patient/family have chosen the home health care agency noted. Questions: Disciplines Requested: Nursing Physical Therapy Arrangements for VNA/home care: As above. Signed: NEFTALI MENON PA-C [facility] Section of Cardiac Surgery [facility] [address] FAX [phone] Date: 02/24/2024 CC: Aparna Jordan, MAURI Jordan, Aparna Sherman APRN [address] [place] [address] documented in this encounter Discharge Instructions * [...] Hayder Graham and/or the Cardiac Surgery Physician Anesthesiology Physician Assistant Team may be reached at . [...] Dr. Hayder Graham. You may use a [place] Track or treadmill but avoid any pulling [...] while being managed by your PCP and/or Correctional Food Service Supervisor. For future medication refills, please refer to your PCP and/or Correctional Food Service Supervisor after your discharge from our service. Thank you REMOVE CHEST TUBE SUTURES ON OR AFTER 03/02/24 Home oxygen therapy: N/A Follow up appointments: You should follow up with your PCP, Aparna Jordan APRN, in 1-2 weeks. Our office will schedule an appointment with your Correctional Food Service Supervisor, Neftali Ernandez MD , in 2 weeks. You have an appointment with your Cardiac Surgeon, Dr. Hayder Graham, 4 weeks with a chest x-ray, EKG, and Echo before your appointment. Cardiac Rehabilitation: Karlos Garcia was seen regarding participation in the outpatient Phase 2Cardiac Rehabilitation at [facility]. The patient agrees to a referral [...] on the weekends please page [phone]. * Eric Barahona PA - 02/23/2024 9:27 [...] 0600 and on the weekends please page [phone]. * Tiffanie Owens PTA - 02/22/2024 2:48 [...] d/c for 10 days. 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 * Kelley Hinson, BANK OPERATIONS OFFICER - 02/21/2024 10:15 AM EDT Physical Therapy [...] d/c for 10 days. 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 * Kelley Hinson PTA - 02/20/2024 3:32 [...] at that time Kelley Hinson PTA Pager: [phone] Physical Therapy Inpatient Rehab Department * Louisa [...] 0600 and on the weekends please page [phone]. * Maris Benavides, PT - 02/19/2024 11:22 [...] d/c for 10 days. 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 Precautions/Special Considerations: [...] outlined inthis evaluation. MARIS BENAVIDES, PT Pager: [phone] Physical Therapy Inpatient Rehabilitation Department Time IN / OUT: 2063-3987 Total Time: 38 (eval) minutes; * Antonio [...] 0600 and on the weekends please page [phone]. * Minnie Begum PA - 02/18/2024 8:25 [...] drops BPH Restart home Flomax 0.4' Keep Delnaey today Dispo: [facility], Full Code, Transfer Discussed with attending surgeon on rounds this morning. GILLIAN Garcia 02/18/2024 Between the hours of 1800 - 0600 and on the weekends please page [phone]. * Kim Ha RCP - 02/17/2024 2:25 [...] plan since last visit. Hayder Graham MD [phone] Source Note - Hayder Graham MD - 02/17/2024 7:00 AM EDT Patient Name: Karlos Garica Patient Age: 63 y.o. Birthdate: 1960 Admit [...] insufficiency. He has glaucoma. He used to [place] until about 15 years ago. He has [...] given written informed consent. Hayder Graham MD [phone] * Hayder Graham MD - 02/17/2024 7:00 [...] given written informed consent. Hayder Graham MD [phone] documented in this encounter Miscellaneous Notes * [...] information for follow-up Home Health & Hospice, [address] [place] [address] Cardiac Rehab, [address] [place] [address] Transportation: family or friend will provide Functional status prior to admission: Independent Home Environment: Others in the home: alone. Current Living Arrangements: home/apartment/condo. Accessibility Concerns:a few steps to enter 1 floor home. Current Functional Ability: Assistive Person and Equipment DME used at home: none DME Needed at Discharge: N/A Patient is insured through: Primary Insurance: [employer] Payor: [facility] / Plan: [facility] PPO / Product Type: *No Product type* / Secondary Insurance: N/A Prescription Coverage: Yes Per provider, pt MR to discharge to home with home health. This plan was formulated with input frompatient and team. All are in agreement with plan. Michelle Main RN Office of Care Management * Plan of Care - Mihsel Merrill RN - 02/23/2024 4:26 PM EDT [...] pain managed with scheduled Tylenol. Worked with [employer]. Ambulated in the roque multiple times during [...] anticipated Patient is insured through: Primary Insurance: [employer] Payor: [facility] / Plan: [facility] PPO / Product Type: *No Product type* / Secondary Insurance: N/A Last Physical Therapy Recommendation: home with home health (Str coming to stay for a week or two upon d/c) with to be determined (owns rolling walker, shower seat) Plan for discharge is: Home w/ Services Outpatient Agency/Support Group Needs: Homecare agency Home Health Services: Physical Therapy, Registered Nurse Agency Referrals: [facility]. [address] [place] [address] Transportation: family or friend will provide Barriers to discharge: Discharge planning Plan going forward: Service Care Management will continue to follow and assist with discharge planning and coordination of care as indicated. Anticipated Date of Discharge: 02/22/2024 Rhett Bell RN RN/CM - Cellphone: [phone] Pager: [phone] Covering Service RN/CM * Plan of Care [...] [facility] Karlos Garica was seen today regarding participation in the outpatient Phase 2 Cardiac Rehabilitation at [facility]. 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 (Only good for 180 days) Any patient receiving care in [place] must abide by [place] law. The hierarchy [...] steady place to sleep or slept in [facility] (including now)?: No In the past 12 months has the [employer], gas, oil, or water My [employer] threatened to shut off services in your [...] [address] [facility] [address] Physical address: [address] [facility], [address] Social & Family Supports: All names listed [...] noted Health/Prescription Coverage: Primary Insurance: [facility] Payor: [facility] / Plan: [facility] PPO / Product Type: *No Product type* / Secondary Insurance: N/A ; Prescription Coverage: Yes Preferred Pharmacy: [id number] AT [address] [address] Emery Status: Patient is a : No Primary Care Provider confirmed: Aparna Jordan, MECHANICAL HANDYMAN [phone] Patient/Caregiver Goals of Treatment: dc to home Potential Needs for Transition of Care: home health care Agency Referrals: I have met with the patient to: discuss discharge planning needs. provide the [facility], Office of Care Management letter from the Bag Grader pertaining to rehab referrals. provide a letter describing our affiliations within the [facility] and educate about their right to choose where referrals are sent. provide a list of Home Health Agencies / Durable Medical Equipment vendors which serve their preferred geographic area. provided patient with [facility] Star Quality Rating handout. They have requested referrals to: [facility]. [address] [place] [address] Note routed to a Cloth Washer Back Tender who will communicate referrals to facilities [...] Reina Greene RN CM, BSN, CMGT- Ext [phone] * Plan of Care - Binta Trinidad [...] Operative Note Patient Name: Karlos Garcia : [id number] MR#: [id number] Case Date: 02/17/2024 Surgeon: Surgeon(s) and Role: * Hayder Graham MD - Primary * Neftali Menon PA - Physician Anesthesiology Physician Assistant Preoperative diagnosis: CAD Postoperative diagnosis: CAD, [...] Operative Note Patient Name: Karlos Garcia : [id number] MR#: [id number] Case Date: 02/17/2024 Surgeon: Surgeons and Role: * Hayder Graham MD - Primary * Neftali Menon PA - Physician Anesthesiology Physician Assistant Preoperative diagnosis: CAD Postoperative diagnosis: CAD, [...] Drains: Mediastinal and Left pleural Disposition: [facility] Procedure Description: The patient was brought [...] Aortic Valve Open W Cardiopulmonary Bypass Homogrf/Stent (94679) Yes 02/17/2024 7:28 AM EDT CAD Cabg, Artery-Vein, Two (16204) Yes 02/17/2024 7:28 AM EDT CAD Cabg, Arterial, Single (96793) Yes 02/17/2024 7:28 AM EDT CAD Endoscopy W/Video-Asst Vein [place], Cabg (11892) Yes 02/17/2024 7:28 AM EDT CAD POCT [...] Lab Hayder Graham MD CHEMISTRY ORDERABLE S [facility] [place] [address] * (ABNORMAL) Basic Metabolic Panel (non-fasting) (02/23/2024 [...] Carpio MD CHEMISTRY ORDERABLES Performing Organization Address City/[facility]/ZIP Co de Phone Number [facility] [place] [address] * Potassium (02/22/2024 4:30 AM EDT) [facility] Potassium 3.5 3.5 - 5.0 mmol/L [facility] [...] MD CHEMISTRY ORDERABLE S Performing Organization Address City/[facility]/ZIP Co de Phone Number [facility] [place] [address] * (ABNORMAL) Basic Metabolic Panel (non-fasting) (02/21/2024 [...] LABORATORY Carbon Dioxide Not Perf 22 - [facility] Comment:Add-on request. Samp [...] Carpio MD CHEMISTRY ORDERABLES Performing Organization Address City/[facility]/ZIP Co de Phone Number [facility] [place] [address] * Lactate, whole blood, send to lab ([facility]) (02/21/2024 9:45 AM EDT) [facility] Lactate WB 2.0 0.5 - 2.2 mmol/L [facility] Blood 02/21/2024 9:45 AM EDT 02/21/2024 9:52 AM EDT Narrative Resulting Agency Comment Spec In Lab Hayder Graham MD CHEMISTRY ORDERABLE S Performing Organization Address [facility] Co de Phone Number [facility] [place] [address] * (ABNORMAL) Hepatic Function Panel (02/21/2024 9:45 AM EDT) [facility] Protein, Total 5.7(L) 6.1 - 8.0 [...] MD CHEMISTRY ORDERABLE S Performing Organization Address City/[facility]/ZIP Co de Phone Number [facility] [place] [address] * Lipase (02/21/2024 9:45 AM EDT) [facility] Lipase 56 0 - 60 unit/L [facility] Blood 02/21/2024 9:45 AM EDT 02/21/2024 9:52 AM EDT Narrative Resulting Agency Comment Spec In Lab Hayder Graham MD CHEMISTRY ORDERABLE S Performing Organization Address [facility] Co de Phone Number [facility] [place] [address] * Amylase (02/21/2024 9:45 AM EDT) Amylase 69 28 - 100 unit/L [facility] Blood 02/21/2024 9:45 AM EDT 02/21/2024 9:52 AM EDT Narrative Resulting Agency Comment Spec In Lab Hayder Graham MD CHEMISTRY ORDERABLE S Performing Organization Address [facility] Phone Number [facility] [place] [address] * Potassium (02/21/2024 3:08 AM EDT) Potassium [...] MD CHEMISTRY ORDERABLE S Performing Organization Address [facility] Co de Phone Number [facility] [place] [address] * XR Chest PA & Lateral (Generic) (02/20/2024 10:19 AM EDT) WORKSTATION ID [id number] DH RAD Anatomical Region Laterality Modality Chest [...] please contact the health child care attendant that requested your imaging first. ? Narrative 02/20/2024 1:11 PM EDT EXAMINATION: XR CHEST PA AND LATERAL (GENERIC) CLINICAL HISTORY: s/p AVR/CABGx3 TECHNIQUE: PA and lateral views of the chest COMPARISON: 02/17/2024 FINDINGS: Support devices: Interval removal of Furman-Kaila catheter, endotracheal tube and mediastinal chest tubes The cardiac silhouette is stable status post median sternotomy, CABG and aortic valve replacement. There are small pleural effusions. No pneumothorax. Procedure Note Rogerio Cruz MD - 02/20/2024 EXAMINATION: XR CHEST PA AND LATERAL (GENERIC) CLINICAL HISTORY: s/p AVR/CABGx3 TECHNIQUE: PA and lateral views of the chest COMPARISON: 02/17/2024 FINDINGS: Support devices: Interval removal of Furman-Kaila catheter, endotracheal tubeand mediastinal chest tubes The [...] questions please contactthe health child care attendant that requested your imaging first. Hayder Graham MD IMG DX ORDERABLES * Scan, Peripheral Blood (02/20/2024 4:23 AM EDT) Pathologist [facility] Plat estimate Decreased [facility] RBC Morphology Normal [facility] Blood 02/20/2024 4:23 AM EDT 02/20/2024 4:42 AM EDT Narrative Resulting Agency Comment Spec In Lab Minnie FRENCH HEMATOLOGY CECILIO ALEMAN [facility] [place] [address] * (ABNORMAL) Differential, Automated (02/20/2024 4:23 AM EDT) [facility] Neutrophil % 81.7 % [facility] Neutrophil Absolute 10.37(H) 1.70 - 6.10 x10(3)/mc L [facility] Lymph % 7.4 % [facility] Lymphocytes Abs 0.9 0.9 - 3.2 x10(3)/mc L [facility] Monocyte % 9.7 % [facility] Monocyte Abs 1.2(H) 0.3 - 0.9 x10(3)/mc L [facility] Eos % 0.1 % [facility] Eosinophils Abs 0.0 0.0 - 0.4 x10(3)/mc L [facility] Basophil % 0.2 % [facility] [...] Absolute 0.12(H) 0.00 - 0.04 x10(3)/mc L [facility] Blood 02/20/2024 4:23 AM EDT 02/20/2024 4:42 AM EDT Narrative Resulting Agency Comment Spec In Lab Minnie FRENCH HEMATOLOGY CECILIO ALEMAN [facility] [place] [address] * (ABNORMAL) Hemogram (02/20/2024 4:23 AM EDT) White Blood Cell 12.7(H) 4.0 - 9.5 x10(3)/mc L [facility] [...] Platelet 88(L) 145 - 357 x10(3)/mc L [facility] RDW Standard Deviation 43.5 36.0 - 45.0 [facility] RDW coefficient of variation 13.7 11.4 - 13.8 % [facility] Mean Platelet Volume 10.2 7.6 - 12.9 [facility] NRBC% auto 0.0 % [facility] NRBC Absolute 0.000 0.000 - 0.000 x10(3)/mc L [facility] Blood 02/20/2024 4:23 AM EDT 02/20/2024 4:42 AM EDT Narrative Resulting Agency Comment Spec In Lab Minnie FRENCH HEMATOLOGY CECILIO ALEMAN [facility] [place] [address] * (ABNORMAL) Basic Metabolic Panel (non-fasting) (02/20/2024 [...] MD CHEMISTRY ORDERABLE S Performing Organization Address [facility] Co de Phone Number [facility] [place] [address] * Potassium (02/19/2024 3:57 AM EDT) Potassium [...] MD CHEMISTRY ORDERABLE S Performing Organization Address [facility] Co de Phone Number [facility] [place] [address] * POCT Glucose (02/18/2024 8:24 AM EDT) Glucose, POC 157 65 - 199 mg/dL [facility] Comment: Supplemental ranges: <140 mg/dL before meals <180 mg/dL all other times of the day Blood 02/18/2024 8:24 AM EDT 02/18/2024 8:24 AM EDT Hayder Graham MD POINT OF CARE TEST ORDERABLES [facility] [place] [address] * Scan, Peripheral Blood (02/18/2024 1:40 AM EDT) Plat estimate Decreased [facility] RBC Morphology Normal [facility] Blood 02/18/2024 1:40 AM EDT 02/18/2024 1:56 AM EDT Narrative Resulting Agency Comment Spec In Lab Neftali FRENCH HEMATOLOGY ORDER OLE Performing Organization Address City/[facility]/ZIP Co de Phone Number [facility] [place] [address] * (ABNORMAL) Differential, Automated (02/18/2024 1:40 AM EDT) [facility] Neutrophil % 87.1 % [facility] Neutrophil Absolute 15.03(H) 1.70 - 6.10 x10(3)/mc L [facility] Lymph % 3.0 % [facility] Lymphocytes Abs 0.5(L) 0.9 - 3.2 x10(3)/mc L [facility] Monocyte % 9.1 % [facility] Monocyte Abs 1.6(H) 0.3 - 0.9 x10(3)/mc L [facility] Eos % 0.0 % [facility] Eosinophils Abs 0.0 0.0 - 0.4 x10(3)/mc L [facility] Basophil % 0.2 % [facility] ORDER OLE [facility] [place] [address] * (ABNORMAL) Hemogram (02/18/2024 1:40 AM EDT) White Blood Cell 17.2(H) 4.0 - 9.5 x10(3)/ L [facility] [...] Platelet 147 145 - 357 x10(3)/ L [facility] RDW Standard Deviation 39.9 36.0 - 45.0 [facility] RDW coefficient of variation 13.2 11.4 - 13.8 % [facility] Mean Platelet Volume 9.9 7.6 - 12.9 fL [facility] NRBC% auto 0.0 % [facility] NRBC Absolute 0.000 0.000 - 0.000 x10(3)/mc L [facility] Blood 02/18/2024 1:40 AM EDT 02/18/2024 1:56 AM EDT Narrative Resulting Agency Comment Spec In Lab Neftali FRENCH HEMATOLOGY ORDER OLE [facility] [place] [address] * (ABNORMAL) Basic Metabolic Panel (non-fasting) (02/18/2024 [...] MD CHEMISTRY ORDERABLE S Performing Organization Address City/[facility]/ZIP Co de Phone Number [facility] [place] [address] * (ABNORMAL) Troponin (02/18/2024 1:40 AM EDT) Pathologist [facility] Troponin-T, High Sensitivity 342(H) <=22 ng/L [facility] [...] troponin value can be found in the [facility] Test Catalog Troponin - [facility] Test Catalog Reference: [place] Definition of Myocardial Infarction. Journal of the [place] [employer] 2018;72:0235-7314 Blood 02/18/2024 1:40 AM EDT 02/18/2024 1:56 AM EDT Narrative Resulting Agency Comment Spec In Lab Hayder Graham MD CHEMISTRY ORDERABLE S Performing Organization Address City/[facility]/ZIP Co de Phone Number [facility] [place] [address] * POCT Glucose (02/17/2024 8:13 PM EDT) Glucose, POC 142 65 - 199 mg/dL [facility] Comment: Supplemental ranges: <140 mg/dL before meals <180 mg/dL all other times of the day Blood 02/17/2024 8:13 PM EDT 02/17/2024 8:13 PM EDT Hayder Graham MD POINT OF CARE TEST ORDERABLES Performing Organization Address City/[facility]/ZIP Co de Phone Number [facility] [place] [address] * POCT Glucose (02/17/2024 5:42 PM EDT) Glucose, POC 160 65 - 199 mg/dL [facility] Comment: Supplemental ranges: <140 mg/dL before meals <180 mg/dL all other times of the day Blood 02/17/2024 5:42 PM EDT 02/17/2024 5:42 PM EDT Hayder Graham MD POINT OF CARE TEST ORDERABLES Performing Organization Address City/[facility]/ZIP Co de Phone Number [facility] [place] [address] * Hemoglobin (02/17/2024 5:42 PM EDT) Hemoglobin 13.7 13.7 - 16.5 g/dL [facility] Blood 02/17/2024 5:42 PM EDT 02/17/2024 6:10 PM EDT Narrative Resulting Agency Comment Spec In Lab Hayder Graham MD HEMATOLOGY ORDERABL ES [facility] [place] [address] * Potassium (02/17/2024 5:42 PM EDT) Potassium [...] MD CHEMISTRY ORDERABLE S Performing Organization Address City/State/[facility] Co de Phone Number [facility] [place] [address] * (ABNORMAL) BLOOD GAS 2 ARTERIAL (02/17/2024 [...] [facility]ICAL [facility]ENTER [facility] FIO2 Art 40 % [facility] PF Ratio Art 195 [facility] Blood 02/17/2024 4:18 PM EDT 02/17/2024 4:18 PM EDT Hayder Graham MD POINT OF CARE TEST ORDERABLES [facility] [place] [phone] * XR Chest One View (02/17/2024 1:44 PM EDT) [employer] WORKSTATION ID [id number] DH RAD Anatomical Region Laterality Modality Chest N/A Digital Radiogra phy Impressions 02/17/2024 2:12 PM EDT 1. ??No definite pleural fluid collection or pneumothorax. 2. ??Right IJ Furman-Kaila catheter tip terminates in a descending branch [...] please contact the health child care attendant that requested your imaging first. ? Electronically signed by: Denzel Hankins MD, [facility] ??([phone]), at 02/17/2024 2:12 PM Narrative 02/17/2024 2:12 PM EDT EXAMINATION: XR CHEST ONE VIEW CLINICAL HISTORY: s/p avr/cabg eval effusions TECHNIQUE: 1 view of the chest COMPARISON: Chest x-ray 01/09/2024, chest CT 02/03/2024 FINDINGS: ET tube tip terminates 5.2 cm above the carlos. Right IJ Furman-Kaila catheter tip terminates in a descending branch [...] 5.2 cm above the carlos. Right IJ Furman-Ganzcatheter tip terminates in a descending branch of [...] fluid collection or pneumothorax. 2. Right IJ Furman-Kaila catheter tip terminates in a descending branch ofthe right pulmonary artery. Suggest catheter retraction. 3. Additional support lines and tubes as above. Thank you for letting us participate in the care of this patient. If youare a health care provider and have any questions regarding this report,please contact the number below. For patients who have questions please contactthe health child care attendant that requested your imaging first. Hayder Graham [...] MEDICAL CENTER LABORATORY FIO2 Art 100 % [facility] PF Ratio Art 320 [facility] Blood 02/17/2024 1:31 PM EDT 02/17/2024 1:31 PM EDT Hayder Graham MD POINT OF CARE TEST ORDERABLES Performing Organization Address City/[facility]/ZIP Co de Phone Number [facility] [place] [address] * (ABNORMAL) Coox2 (02/17/2024 1:21 PM EDT) [...] OF CARE TEST ORDERABLES Performing Organization Address City/[facility] Co de Phone Number [facility] [place] [address] * (ABNORMAL) BLOOD GAS 2 ARTERIAL (02/17/2024 [...] OF CARE TEST ORDERABLES Performing Organization Address [facility] Co de Phone Number [facility] [place] [address] * (ABNORMAL) Fibrinogen (02/17/2024 12:10 PM EDT) [...] MD HEMATOLOGY ORDERABLE S Performing Organization Address [facility] Co de Phone Number [facility] [place] [address] * (ABNORMAL) Thrombin time (02/17/2024 12:10 PM [...] MD HEMATOLOGY ORDERABLE S Performing Organization Address [facility] de Phone Number [facility] [place] [address] * APTT (02/17/2024 12:10 PM EDT) Partial [...] S Performing Organization Address [facility] de Phone Number [facility] [place] [address] * (ABNORMAL) Prothrombin Time (02/17/2024 12:10 PM [...] S [facility] [place] [address] * (ABNORMAL) Hemogram (02/17/2024 12:10 PM EDT) [...] RDW Standard Deviation 40.2 36.0 - 45.0 [facility] RDW coefficient of variation 12.8 11.4 - 13.8 % [facility] Mean Platelet Volume 9.5 7.6 - 12.9 fL [facility] NRBC% auto 0.0 % [facility] NRBC Absolute 0.000 0.000 - 0.000 x10(3)/mc L [facility] Blood 02/17/2024 12:1 0 PM EDT 02/17/2024 12:19 PM EDT Narrative Resulting Agency Comment Spec In Lab Tara York MD HEMATOLOGY ORDERABLE S [facility] [place] [address] * (ABNORMAL) BLOOD GAS 2 ARTERIAL (02/17/2024 [...] [facility] Comment: Noted by assembler musical instruments. Please note: Patients with WBC >100,000 may [...] TEST ORDERABLES [facility] [place] [address] * (ABNORMAL) BLOOD GAS 2 ARTERIAL (02/17/2024 [...] [facility] Comment: Noted by assembler musical instruments. Please note: Patients with WBC >100,000 may [...] OF CARE TEST ORDERABLES Performing Organization Address [facility] Co de Phone Number [facility] [place] [address] * (ABNORMAL) Hemoglobin and Hematocrit, blood (02/17/2024 11:04 AM EDT) Hemoglobin 9.6(L) 13.7 - 16.5 g/dL [facility] [...] MD HEMATOLOGY ORDERABL ES Performing Organization Address [facility]/ZIP Co de Phone Number [facility] [place] [address] * (ABNORMAL) Platelet count (02/17/2024 11:04 AM EDT) Platelet 106(L) 145 - 357 x10(3)/mc L [facility] Immature Plt % 1.6 0.0 - 7.4 % [facility] Comment: Limitation of the Immature Platelet Fraction (IPF)-May be less reliable when the platelet count is less than 89d788/uL due to statistical imprecision. The IPF value [...] in a decreased state of production. References: [employer] The Clinical Value of the Immature Platelet Fraction (IPF) in Cell Recovery Document Number 10-1143 03/2011 [employer] The Role of the Immature Platelet Fraction (IPF) in the Differential Diagnosis of Thrombocytopenia, Document MKT-[id number] V002/15/14 P002/17 Blood 02/17/2024 11:0 4 AM EDT 02/17/2024 11:12 AM EDT Narrative Resulting Agency Comment Spec In Lab Hayder Graham MD HEMATOLOGY ORDERABL ES Performing Organization Address [facility] Co de Phone Number [facility] [place] [address] * (ABNORMAL) Fibrinogen (02/17/2024 11:04 AM EDT) [...] Lab Hayder Graham MD HEMATOLOGY ORDERABL ES [facility] [place] [address] * (ABNORMAL) BLOOD GAS 2 ARTERIAL (02/17/2024 [...] TEST ORDERABLES [facility] [place] [address] * (ABNORMAL) BLOOD GAS 2 ARTERIAL (02/17/2024 [...] TEST ORDERABLES [facility] [place] [address] * Surgical Pathology Report (02/17/2024 10:01 AM EDT) Final Diagnosis [id number] ? Location: [facility]; [facility]; The signing pathologist has (i) examined the relevant preparation(s) for the specimen(s) and (ii) rendered or confirmed the diagnosis(es). . ?Surgical Pathology DIAGNOSIS Aortic valve leaflets, excision: Valve leaflets with myxoid degeneration, nodular fibrosis and dystrophic calcifications. Electronically signed by: ?Livier Montoya MD Verified: ??02/24/2024 13:49 ??Pathologist Performed at: ??-[facility] Dept. of Pathology, [place] [address] Bag Grader: Job Brewer MD, AP, ??IA Certificate: [id number] SPECIMEN(S) SUBMITTED A - Aortic Valve Leaflets, [...] Sections Processing Blocks submitted for decalcification: A1. Machine Washer sections in 1 cassette labeled A1. ??ajw 02/24/2024 1:49 PM EDT [facility] AORTIC STRUCTURE / Unknown 02/17/2024 10:01 AM EDT 02/17/2024 10:01 AM EDT Hayder Graham MD PATHOLOGY/[place] [address] * Specimen to Pathology (02/17/2024 10:01 AM EDT) AP Specimen 02/17/2024 10:0 1 AM EDT 02/17/2024 10:01 AM EDT Narrative [facility] - 02/17/2024 10:01 AM EDT Specimen requisition ordered. ??Separate Pathology report to follow Hayder Graham MD PATHOLOGY/CYTOLOGY ORDERABLES [facility] [place] [address] * (ABNORMAL) BLOOD GAS 2 ARTERIAL (02/17/2024 9:35 AM EDT) pH, Arterial 7.33(L) 7.35 - 7.45 [facility] PCO2, Arterial 35 35 - 45 mmHg [facility] PO2, Arterial 318(H) 85 - 104 mmHg [facility] Bicarbonate, Arterial 17.9(L) 20.0 - 26.0 mmol/L [facility] [...] TEST ORDERABLES [facility] [place] [address] * (ABNORMAL) BLOOD GAS 2 VENOUS (02/17/2024 9:34 AM EDT) pH, Venous 7.22(Criti marquez) 7.32 - 7.42 [facility] Comment:Noted by assembler musical instruments. PCO2, Venous 43 41 - 51 mmHg [facility] Comment:Noted by assembler musical instruments. PO2, Venous 57(H) 25 - 40 mmHg [facility] Comment:Noted by assembler musical instruments. Bicarbonate, Venous 17.1 mmol/L [facility] Comment:Noted by assembler musical instruments. Base Excess, Venous -10.6 mmol/L [facility] Comment:Noted by assembler musical instruments. Hgb Blood Gas 11.2(L) 13.7 - 16.5 g/dL [facility] Comment:Noted by assembler musical instruments. Oxyhemoglobin, Venous 86.5 % [facility] Comment:Noted by assembler musical instruments. Carboxyhemoglob in, Venous 0.3 % [facility] Comment: Noted by assembler musical instruments. Nonsmokers: 0.5-1.5% COHB Smokers: Variable, but usually less than 10% Toxic: 20-30% COHB Lethal: Greater than 60% COHB Methemoglobin, Venous 0.0 <=1.5 % [facility] Comment:Noted by assembler musical instruments. Na Whole Blood 156(H) 135 - 145 mmol/L [facility] Comment:Noted by assembler musical instruments. K Whole Blood 5.5(H) 3.5 - 5.0 mmol/L [facility] Comment: Noted by assembler musical instruments. Please note: Patients with WBC >100,000 may have falsely elevated Potassium levels. Contact the Clinical Chemistry Laboratory if there are any questions. ICa Whole Blood 1.03(L) 1.15 - 1.33 mmol/L [facility] Comment: Noted by assembler musical instruments. Note: ??Total bilirubin higher than 20 mg/dL may lead to falsely low ionized calcium. CL Whole Blood 100 98 - 107 mmol/L [facility] Comment:Noted by assembler musical instruments. Gluc Whole Bld 132 65 - 199 mg/dL [facility] Comment: Noted by assembler musical instruments. Diabetes: >=200 mg/dL plus symptoms Lactate WB 1.0 0.5 - 2.2 mmol/L [facility] Comment:Noted by assembler musical instruments. Blood Gas Source Venous [facility] Blood 02/17/2024 9:34 AM EDT 02/17/2024 9:34 AM EDT Hayder Graham MD POINT OF CARE TEST ORDERABLES [facility] [place] [address] * (ABNORMAL) BLOOD GAS 2 ARTERIAL (02/17/2024 [...] OF CARE TEST ORDERABLES Performing Organization Address [facility] Co de Phone Number [facility] [place] [address] * POCT Glucose (02/17/2024 6:38 AM EDT) Glucose, POC 98 65 - 199 mg/dL [facility] Comment: Supplemental ranges: <140 mg/dL before meals <180 mg/dL all other times of the day Blood 02/17/2024 6:38 AM EDT 02/17/2024 6:38 AM EDT Hayder Graham MD POINT OF CARE TEST ORDERABLES Performing Organization Address [facility] Co de Phone Number [facility] [place] [phone] * Transesophageal Echo/OR (02/17/2024 6:33 AM EDT) [...] [facility]operative [facility] [...] 6 hours upon arrival to Unit. Give AZ if unable to take PO, Routine Given [...] dose on Sat02/17/24 at 1400, Until Discontinued, [place] teeth and / or gums. Scan the CHG vial in the mobile [facility] Q-Care Oral Care Kit from floor stock. Ventilator-associated pneumonia prophylaxis For use in ICU/Critical care locations ONLY. Obtain kit from Floor Stock location. Scan CHG vial in the mobile [facility] Q-Care Oral Care Kit, Routine Given 02/17/2024 [...] 25 mg, Oral, ONCE, 1 dose, On [facility] 02/22/24 at 1000, Routine Given 02/22/2024 10:02 AM EDT 25 mg metoprolol tartrate (Lopressor) tablet 50 mg 50 mg, Oral, EVERY 12 HOURS SCHEDULED (2 times per day), First dose (after last modification) on [facility] 02/22/24 at 2100, Until Discontinued, Hold [...] PHENYLephrine and/or vasopressin ineffective. Call pager # [phone] if initiated. Titrate to keep systolic blood [...] house mover for additional fluid orders: pager #[phone]. Rate/Dose Verify 02/18/2024 8:00 AM EDT 1 mL/hr 1 mL/hr Rate/Dose Verify 02/18/2024 6:00 AM EDT 1 mL/hr 1 mL/hr Rate/Dose Verify 02/18/2024 4:00 AM EDT 1 mL/hr 1 mL/hr sodium chloride 0.9% infusion 10-30 mL/hr, Intravenous, DAILY PRN, Starting on Sat02/17/24 at 1307, Until Sat02/18/24 at 0835, Side port TKO rate, per [facility] nursing protocol. Rate/Dose Verify 02/17/2024 8:00 [...] Routine documented in this encounter Care Teams Rn Emergency Relationship Specialty Start Date End Date Aparna Jordan APRN PCP - General Family Medicine 10/21/23 05/26/24 documented as of this encounter
--- OUTSIDE RECORDS SUMMARY | 2024-08-20 10:37 | XMS_ITS | Encounter Summary ---
Author Organization [facility] [place] [address] Care Team Providers Care Safety Risk Lead Name Role Phone Vanessa Christian MAURI Primary Care Provider [phone] Reason for Visit * Auth/Cert (Routine) Specialty [...] Farmer MD [facility] [place] [address] [facility] Referral ID Status Reason Start Date Expiration Date Visits Re quested Visits Authorized [id number] 1 1 Encounter Details Date Type Department Care Team (Late st Contact Info) Description 02/17/2024 7:35 AM EDT Anesthesia Event Main Operating Room [facility] [place] [phone] Roman York MD [facility] [place] [address] Anesthesia Record Procedure Summary Procedure Name Responsible [...] by Sadiq Woo RN PIV 02/17/24; 0715; [id number] catheter system; 18 gauge; cephalic vein (lateral [...] th e electric, gas, oil, or water [employer] threatened to shut off services in your [...] Procedure Summary Date: 02/17/24 Room / Location: [facility] OR [address] [place] [address] MAIN OR Anesthesia Start: 734 Anesthesia Stop: [...] ASA Status: 3 All Anesthesia Providers: Anesthesiologist: Roamn York MD Vitals Value Taken Time BP Temp 33.5 ??C (92.3 ??F) 02/17/24 1315 Pulse 70 02/17/24 1347 Resp 13 02/17/24 1347 SpO2 98 % 02/17/24 1347 Pain Level Vitals shown include unfiled device data. Patient Location: [facility] Level of Consciousness: Sedated (Pharmacologic/Intentional) Pain [...] 08/14/2023 ??? 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 Social [...] mg documented in this encounter Care Teams Safety Risk Lead Relationship Specialty Start Date End Date Vanessa Christian APRN PCP - General Family Medicine 10/21/23 05/26/24 documented as of this encounter
--- OUTSIDE RECORDS SUMMARY | 2024-08-20 10:37 | XMS_ITS | Encounter Summary ---
Author Organization [facility] Address [facility] Ivana linareseileen [place] [id number] Care Team Providers Care Pot Holder Binder Name Role Phone Vanessa Christian MAURI Primary Care Provider [phone] Reason for Referral * Consultation (Routine) - Closed Specialty Diagnoses / Procedures Referred By Contac t Referred To Contact Cardiac Surgery Diagnoses Nonrheumatic aortic valve stenosis significant - TAVR ( defers to Card Surg d/t age) Errol Loya MD [facility] [place] [address] Zak Farmer MD [facility] [place] [address] Referral ID Status Reason Start Date Expiration Date V isits Requested Visits Authorized [id number] Closed Consult, Test & Treat 10/21/2023 10/20/2024 1 1 Reason for Visit * Reason Comments Chest Pain Shortness of Breath Aortic Stenosis Encounter Details Date Type Department Care Team (Late st Contact Info) Description 10/21/2023 1:20 PM EST Office Visit Cardiology at [address] [phone] Errol Loya MD [facility] [place] [address] Nonrheumatic aortic valve stenosis Social History Tobacco [...] List Diagnosis Aortic stenosis 12/2022 [facility] ([facility]): VITA 0.8-0.9 cm2 (MG 28 mmHg, DOI 3.6 m/s, SVI 35 cc/m2). Trace regurgitation. Normal bi-v s/f, no other valve findings Gastroesophageal reflux Nevus of face Right yarsani Hypertension HLD (hyperlipidemia) MEDICATIONS: Current Outpatient Medications [...] the meantime will refer to T at [facility] for [...] the meantime will refer to T at [facility] for [...] documented in this encounter Care Teams Pot Holder Binder Relationship Specialty Start Date End Date Vanessa Christian APRN PCP - General Family Medicine 10/21/23 05/26/24 documented as of this encounter
--- OUTSIDE RECORDS SUMMARY | 2024-08-20 10:37 | XMS_ITS | Encounter Summary ---
Author Organization [facility] [place] [address] Care Team Providers Care Skills Trainer Name Role Phone Vanessa Christian APRN Primary Care Provider [phone] Encounter Details Date Type Department Care Team (Late st Contact Info) Description 10/21/2023 Abstract Cardiology at [address] [place] [id number] Adam Mayes RN Social History Tobacco Use [...] on filedocumented in this encounter Care Teams Skills Trainer Relationship Specialty Start Date End Date Vanessa Christian APRN PCP - General Family Medicine 10/21/23 05/26/24 documented as of this encounter
--- OUTSIDE RECORDS SUMMARY | 2024-08-20 10:37 | XMS_ITS | Encounter Summary ---
Author Organization [facility] [place] [address] Care Team Providers Care Consumer Studies Professor Name Role Phone Vanessa Christian Lane DOTSON Primary Care Provider [phone] Reason for Referral * Diagnostic Test (Routine) - Closed Specialty Diagnoses / Procedures Referred By Contac t Referred To Contact Radiology Diagnoses Nonrheumatic aortic valve stenosis Procedures CT Chest wo Contrast (Generic) Louisa Cho PA [facility] [place] [address] [facility] [place] [address] Referral ID Status Reason Start Date Expiration Date V isits Requested Visits Authorized [id number] Closed Specialty Service Requested 01/10/2024 07/11/2025 1 1 Reason for Visit * Diagnostic Test (Routine) - Closed Specialty Diagnoses / Procedures Referred By Contac t Referred To Contact Radiology Diagnoses Nonrheumatic aortic valve stenosis Procedures CT Chest wo Contrast (Generic) Louisa Cho PA [facility] [place] [address] [facility] [place] [address] Referral ID Status Reason Start Date Expiration Date V isits Requested Visits Authorized [id number] Closed Specialty Service Requested 01/10/2024 07/11/2025 1 1 Encounter Details Date Type Department Care Team (Latest Contact Info) Description 02/03/2024 7:36 AM EDT - 02/03/2024 8:05 AM EDT Hospital Encounter CT Scan at [facility] [place] [address] [facility] [place] [address] Nonrheumatic aortic valve stenosis Discharge Disposition: Home Social History Tobacco Use Types Packs/Day Years Used Date Smoking Tobacco: Former Cigarettes Smokeless Tobacco: Never Comments:Quit 15 + years ago Alcohol Use Standard Drinks/Week Comments Yes 0 (1 standard drink = 0.6 oz pur e alcohol) rare [facility] Inpatient Questions Answer Date Recorded Does [...] wo Contrast (Generic) (02/03/2024 7:44 AM EDT) Weekend-a-gogo Signature WORKSTATION ID [id number] RAD Anatomical Region Laterality Modality Chest Computed [...] signed by: Rogerio Wright MD, [facility] ([phone]), at 02/03/2024 10:00 AM Narrative 02/03/2024 10:00 [...] nodule along the minor fissure (series [id number]) and a 8 mm right lower lobe [...] career counselor that requested your imaging first. Electronically signed by: Rogerio Wright MD, [facility]([phone]), at 02/03/2024 10:00 AM Zak Farmer MD IMG CT ORDERABLES documented in this encounter Visit Diagnoses Diagnosis Nonrheumatic aortic valve stenosis Aortic valve disorders documented in this encounter Care Teams Consumer Studies Professor Relationship Specialty Start Date End Date Vanessa Christian APRN PCP - General Family Medicine 10/21/23 05/26/24 documented as of this encounter
--- OUTSIDE RECORDS SUMMARY | 2024-08-20 10:37 | XMS_ITS | Encounter Summary ---
[facility] [place] [address] Care Team Providers Care District Branch Manager Name Role Phone Vanessa Christian APRN Primary Care Provider [phone] Encounter Details Date Type Department Care Team [...] on filedocumented in this encounter Care Teams District Branch Manager Relationship Specialty Start Date End Date Vanessa Christian APRN PCP - General Family Medicine 10/21/23 05/26/24 documented as of this encounter
--- OUTSIDE RECORDS SUMMARY | 2024-08-20 10:37 | XMS_ITS | Encounter Summary ---
Author Organization [facility] Address [facility] [place] [address] Care Team Providers Care Coroner/Medical Examiner Name Role Phone Vanessa Christian MEDICAL ADMINISTRATIVE TECHNICIAN Primary Care Provider [phone] Reason for Referral * Diagnostic Test (Routine) - Closed Specialty Diagnoses / Procedures Referred By Contac t Referred To Contact Radiology Diagnoses Nonrheumatic aortic valve stenosis Procedures CT Chest wo Contrast (Generic) Louisa Reid PA [facility] [place] [address] [facility] [place] [address] Referral ID Status Reason Start Date Expiration Date V isits Requested Visits Authorized [id number] Closed Specialty Service Requested 01/10/2024 07/11/2025 1 1 Encounter Details Date Type Department Care Team (Late st Contact Info) Description 01/09/2024 Orders [place] [address] Zak Farmer MD [facility] [place] [address] Nonrheumatic aortic valve stenosis Social History Tobacco [...] wo Contrast (Generic) (02/03/2024 7:44 AM EDT) Visto WORKSTATION ID [id number] RAD Anatomical Region Laterality Modality Chest Computed [...] questions please contact the health resident care aide that requested your imaging first. ? Electronically signed by: Rogerio Wright MD, [facility] ([phone]), at 02/03/2024 10:00 AM Narrative 02/03/2024 10:00 [...] have questions please contactthe health resident care aide that requested your imaging first. Electronically signed by: Rogerio Wright MD, [facility]([phone]), at 02/03/2024 10:00 AM Zak Farmer MD IMG CT ORDERABLES documented in this encounter Visit Diagnoses Diagnosis Nonrheumatic aortic valve stenosis Aortic valve disorders Nonrheumatic aortic valve stenosis Aortic valve disorders documented in this encounter Care Teams Coroner/Medical Examiner Relationship Specialty Start Date End Date Vanessa Christian APRN PCP - General Family Medicine 10/21/23 05/26/24 documented as of this encounter
--- OUTSIDE RECORDS SUMMARY | 2024-08-20 10:37 | XMS_ITS | Encounter Summary ---
[facility] Organization [facility] [place] [address] Care Team Providers Care Instructor Traffic Safety Name Role Phone Aparna Jordan MAURI Primary Care Provider [phone] Reason for Visit * Auth/Cert (Routine) Specialty [...] MD [facility] [place] [address] [facility] Referral ID Status Reason Start Date Expiration Date Visits Re quested Visits Authorized [id number] 1 1 Encounter Details Date Type Department Care Team (Late st Contact Info) Description 02/17/2024 7:30 AM EDT - 02/17/2024 1:26 PM EDT Surgery [place] [id number] Hayder Graham MD [facility] [place] [address] ENDOSCOPIC HARVEST VEIN(S) FOR CABG (WRVU 0.31) Social History Tobacco Use Types Packs/Day Years Used Date Smoking Tobacco: Former Cigarettes Smokeless Tobacco: Never Comments:Quit 15 + years ago Alcohol Use Standard Drinks/Week Comments Yes 0 (1 standard drink = 0.6 oz pur e alcohol) rare [facility] Utilities Answer Date Recorded In the [...] 1-2 weeks. Patient to follow up with Intervention Nurse, Neftali Ernandez MD , in 2 weeks. Patient to follow up with Cardiac Surgeon, Dr. Hayder Graham, with a chest x-ray, EKG, and Echo. 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 He has glaucoma. He used to bacForter until about 15 years ago. He has undergone prior herniorrhaphy. 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 Major Procedures/Operations: 02/17/24 s/p avr/cabgx3 CABG x 3 JOSE->LAD SVG->dRCA SVG->OM1 EVH from LLE AVR with a 23 mm Inspiris Bioprosthesis Hospital Course: Karlos Garcia was admitted to [facility] on 02/17/2024 via the Same Day Program. [...] Hayder Graham and/or the Cardiac Surgery Physician Project Manager Retail Team may be reached at . Antibiotic [...] Please refer to the card with the [place] Heart [employer] Guidelines for more information. You [...] Dr. Hayder Graham. You may use a [place] Track or treadmill but avoid any pulling [...] should resume a low fat, low cholesterol, [place] Heart [employer] Diet. Driving: No driving until [...] while being managed by your PCP and/or Intervention Nurse. For future medication refills, please refer to your PCP and/or Intervention Nurse after your discharge from our service. Thank you REMOVE CHEST TUBE SUTURES ON OR AFTER 03/02/24 Home oxygen therapy: N/A Follow up appointments: You should follow up with your PCP, Aparna Jordan APRN, in 1-2 weeks. Our office will schedule an appointment with your Intervention Nurse, Neftali Ernandez MD , in 2 weeks. [...] Future Orders Complete By Expires Echocardiogram Transthoracic [53020 CPT(R)] 03/26/2024 09/25/2024 Process Instructions: Scheduling Instructions: Questions: Where will study be performed?: [facility] Does the patient have Congenital Heart Disease?: Does patient require sedation?: Sedation rationale: XR Chest PA & Lateral (Generic) [41517 89679 Custom] 03/26/2024 09/25/2024 Process Instructions: Scheduling Instructions: Questions: Portable exam?: Reason for exam and clinical history: s/p avr/cabg Clinical information / jerome questions for radiologist: Stat read required?: Date of injury if applicable: Requested Time: Where will study be performed?: [facility] Radiology Referral to Cardiac Rehab [BOE823 Custom] As directed Process Instructions: If no [...] to Home Health. [address] Phone Number: Date of : 1960 Inpatient DOCUMENTATION FOR VNA SERVICES (INCLUDING THOSE PATIENTS WITH MEDICARE COVERAGE REQUIRING HOME VNA SERVICES AND/OR HOSPICE SERVICES) PATIENT'S LOCATION: Karlos Garcia [address] [employer] [phone] Alteration Tailor Apprentice's Name: self/family In discussion with the attending physician, it is certified that this patient is under their care and that they, or a Nurse Practitioner, or Physician Project Manager Retail who is working directly with them, hada [...] for services as follows: HOME HEALTH AGENCY: [facility] [address] [place] [id number] RN orders: Cardiopulmonary assessment, incisional assessment, assess [...] issues please call the Cardiology Office at [phone] FOR MEDICARE ONLY: (please delete this section [...] [facility] Section [facility] Surgery [facility] [address] FAX [phone] Date: 02/24/2024 CC: Aparna Jordan, MAURI Jordan, Aparna Sherman APRN [address] [place] [address] documented in this encounter Discharge Instructions * [...] Hayder Graham and/or the Cardiac Surgery Physician Project Manager Retail Team may be reached at . Antibiotic [...] Please refer to the card with the [place] [employer] Guidelines for more information. You [...] Dr. Hayder Graham. You may use a [place] Track or treadmill but avoid any pulling [...] should resume a low fat, low cholesterol, [place] [employer] Diet. Driving: No driving until [...] while being managed by your PCP and/or Intervention Nurse. For future medication refills, please refer to your PCP and/or Intervention Nurse after your discharge from our service. Thank you REMOVE CHEST TUBE SUTURES ON OR AFTER 03/02/24 Home oxygen therapy: N/A Follow up appointments: You should follow up with your PCP, Aparna Jordan APRN, in 1-2 weeks. Our office will schedule an appointment with your Intervention Nurse, Neftali Ernandez MD , in 2 weeks. [...] 0600 and on the weekends please page [phone]. * Eric Barahona PA - 02/23/2024 9:27 [...] 0600 and on the weekends please page [phone]. * Tiffanie Owens, SPECIAL POLICE OFFICER - 02/22/2024 2:48 PM EDT Physical Therapy [...] d/c for 10 days. 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 He drives. He works Precautions/Special Considerations: [...] LRAD and supervision Time IN / OUT: 2840-5553 Total Time: 30 minutes; TEFx2 Tiffanie Owens Pager: [phone] Physical Therapy Inpatient Rehabilitation Department * Romeo [...] 0600 and on the weekends please page [phone]. * Kelley Hinson SPECIAL POLICE OFFICER - 02/21/2024 10:15 AM EDT Physical [...] d/c for 10 days. 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 He drives. He works Precautions/Special Considerations: [...] LRAD and supervision Time IN / OUT: 4945-5641 Total Time: 25 minutes; TEF 2 Kelley Hinson PTA Pager: [phone] Physical Therapy Inpatient Rehabilitation Department * Louisa [...] 0600 and on the weekends please page [phone]. * Kelley Hinson PTA - 02/20/2024 3:32 [...] at that time Kelley Hinson PTA Pager: [phone] Physical Therapy Inpatient Rehab Department * Louisa [...] 0600 and on the weekends please page [phone]. * Maris Benavides, PT - 02/19/2024 11:22 [...] d/c for 10 days. 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 He drives. He works. Precautions/Special Considerations: [...] outlined inthis evaluation. MARIS BENAVIDES, PT Pager: [phone] Physical Therapy Inpatient Rehabilitation Department Time IN / OUT: 3588-3044 Total Time: 38 (eval) minutes; * Antonio [...] 0600 and on the weekends please page [phone]. * Minnie Begum PA - 02/18/2024 8:25 [...] 0600 and on the weekends please page [phone]. * Kim Ha RCP - 02/17/2024 2:25 [...] plan since last visit. Hayder Graham MD [phone] Source Note - Hayder Graham MD - 02/17/2024 7:00 AM EDT Patient Name: Karlos Garcia Patient Age: 63 y.o. Birthdate: 1960 Admit date: 02/17/2024 Attending Physician: Haydre Graham MD Mr. Santa is a 63-year-old [...] given written informed consent. Hayder Graham MD [phone] * Hayder Graham MD - 02/17/2024 7:00 [...] given written informed consent. Hayder Graham MD [phone] documented in this encounter Miscellaneous Notes * [...] information for follow-up Home Health & Hospice, [address] [place] [address] Cardiac Rehab, [address] [place] [address] Transportation: family or friend will provide Functional status prior to admission: Independent Home Environment: Others in the home: alone. Current Living Arrangements: home/apartment/condo. Accessibility Concerns:a few steps to enter 1 floor home. Current Functional Ability: Assistive Person and Equipment DME used at home: none DME Needed at Discharge: N/A Patient is insured through: Primary Insurance: [employer] Payor: [employer] / Plan: [facility] PPO / Product Type: *No Product [...] pain managed with scheduled Tylenol. Worked with [employer]. Ambulated in the roque multiple times during [...] anticipated Patient is insured through: Primary Insurance: [employer] Payor: [employer] / Plan: [facility] PPO / Product Type: *No Product type* / Secondary Insurance: N/A Last Physical Therapy Recommendation: home with home health (Str coming to stay for a week or two upon d/c) with to be determined (owns rolling walker, shower seat) Plan for discharge is: Home w/ Services Outpatient Agency/Support Group Needs: Homecare agency Home Health Services: Physical Therapy, Registered Nurse Agency Referrals: [facility] [address] [place] [address] Transportation: family or friend will provide Barriers to discharge: Discharge planning Plan going forward: Service Care Management will continue to follow and assist with discharge planning and coordination of care as indicated. Anticipated Date of Discharge: 02/22/2024 Rhett Bell RN RN/CM - Cellphone: [phone] Pager: [phone] Covering Service RN/CM * Plan of Care [...] Hypertension 08/14/2023 Nevus of face 09/26/2023 Right congregation Hospitalizations Within the Past 30 Days: no previous admission in last 30 days Current Decision-Making Capacity: Self If AD's have not been completed the following surrogate would be surrogate decision maker per [place] surrogate decision making law. (Only good for 180 days) Any patient receiving care in [place] must abide by [place] law. The hierarchy [...] (i) The agent with financial power of sales associate or a conservator appointed in accordance [...] In the past 12 months has the [employer], gas, oil, or water [employer] threatened to shut off services in your [...] as: [address] [facility] [address] Physical address: [address] [facility], [address] Social & Family Supports: All names listed [...] Information: none noted Health/Prescription Coverage: Primary Insurance: [employer] Payor: [employer] / Plan: [facility] PPO / Product Type: *No Product type* / Secondary Insurance: N/A ; Prescription Coverage: Yes Preferred Pharmacy: [id number] [address] [place] Status: Patient is a : No Primary Care Provider confirmed: Aparna Jordan, MAURI [phone] Patient/Caregiver Goals of Treatment: dc to home Potential Needs for Transition of Care: home health care Agency Referrals: I have met with the patient to: discuss discharge planning needs. provide the [facility], Office of Care Management letter from the Locksmith Apprentice pertaining to rehab referrals. provide a letter describing our affiliations within the [facility] and educate about their right to choose where referrals are sent. provide a list of Home Health Agencies / Durable Medical Equipment vendors which serve their preferred geographic area. provided patient with [facility] Star Quality Rating handout. They have requested referrals to: [facility] [address] [place] [address] Note routed to a Restaurant District Manager who will communicate referrals to facilities [...] Reina Greene RN CM, BSN, CMGT-BC Ext [phone] * Plan of Care - Binta Trinidad [...] Operative Note Patient Name: Karlos Garcia : [id number] MR#: [id number] Case Date: 02/17/2024 Surgeon: Surgeon(s) and Role: * Hayder Graham MD - Primary * Neftali Menon PA - Physician Project Manager Retail Preoperative diagnosis: CAD Postoperative diagnosis: CAD, intraoperative [...] mL Drains: Mediastinal and Left pleural Disposition: [facility] Condition: doing well without problems Attestation: Case Date: 02/17/2024 I performed this procedure without the involvement of a resident. HAYDER GRAHAM MD 02/17/2024 * Op Note - Hayder Graham MD - 02/17/2024 8:20 AM EDT [facility] Operative Note Patient Name: Karlos Garcia : [id number] MR#: [id number] Case Date: 02/17/2024 Surgeon: Surgeons and Role: * Hayder Graham MD - Primary * Neftali Menon PA - Physician Project Manager Retail Preoperative diagnosis: CAD Postoperative diagnosis: CAD, intraoperative [...] mL Drains: Mediastinal and Left pleural Disposition: [facility] Procedure Description: The patient was brought [...] Aortic Valve Open W Cardiopulmonary Bypass Homogrf/Stent (95828) Yes 02/17/2024 7:28 AM EDT CAD Cabg, Artery-Vein, Two (83169) Yes 02/17/2024 7:28 AM EDT CAD Cabg, Arterial, Single (81453) Yes 02/17/2024 7:28 AM EDT CAD Endoscopy W/Video-Asst Vein [place], Cabg (22816) Yes 02/17/2024 7:28 AM EDT CAD POCT [...] Lab Hayder Graham MD CHEMISTRY ORDERABLE S [facility] [place] [address] * (ABNORMAL) Basic Metabolic Panel (non-fasting) (02/23/2024 [...] Carpio MD CHEMISTRY ORDERABLES Performing Organization Address [facility] Co de Phone Number [facility] [place] [address] * Potassium (02/22/2024 4:30 AM EDT) Potassium [...] MD CHEMISTRY ORDERABLE S Performing Organization Address [facility] Co de Phone Number [facility] [place] [address] * (ABNORMAL) Basic Metabolic Panel (non-fasting) (02/21/2024 [...] 31 [facility] Comment:Add-on request. Samp le [...] MD CHEMISTRY ORDERABLES [facility] [place] [address] * Lactate, whole blood, send to lab ([facility] (02/21/2024 9:45 AM EDT) Lactate WB 2.0 0.5 - 2.2 mmol/L [facility] Blood 02/21/2024 9:45 AM EDT 02/21/2024 9:52 AM EDT Narrative Resulting Agency Comment Spec In Lab Hayder Graham MD CHEMISTRY ORDERABLE S Performing Organization Address City/[facility]/ZIP Co de Phone Number [facility] [place] [address] * (ABNORMAL) Hepatic Function Panel (02/21/2024 9:45 [...] MD CHEMISTRY ORDERABLE S Performing Organization Address City/[facility]/ZIP Co de Phone Number [facility] [place] [address] * Lipase (02/21/2024 9:45 AM EDT) Pathologist [facility] Lipase 56 0 - 60 unit/L [facility] Blood 02/21/2024 9:45 AM EDT 02/21/2024 9:52 AM EDT Narrative Resulting Agency Comment Spec In Lab Hayder Graham MD CHEMISTRY ORDERABLE S Performing Organization Address [facility] Co de Phone Number [facility] [place] [address] * Amylase (02/21/2024 9:45 AM EDT) Amylase 69 28 - 100 unit/L [facility] Blood 02/21/2024 9:45 AM EDT 02/21/2024 9:52 AM EDT Narrative Resulting Agency Comment Spec In Lab Hayder Graham MD CHEMISTRY ORDERABLE S Performing Organization Address [facility] de Phone Number [facility] [place] [address] * Potassium (02/21/2024 3:08 AM EDT) Pathologist [facility] Potassium 3.8 3.5 - 5.0 mmol/L [facility] [...] MD CHEMISTRY ORDERABLE S Performing Organization Address [facility] Co de Phone Number [facility] [place] [address] * XR Chest PA & Lateral (Generic) (02/20/2024 10:19 AM EDT) WORKSTATION ID [id number] RAD Anatomical Region Laterality Modality Chest N/A Digital Radiogra phy Impressions 02/20/2024 1:11 PM EDT Small pleural effusions. No pneumothorax Thank you for letting us participate in the care of this patient. ??If you are a health care provider and have any questions regarding this report, please contact the number below. ??For patients who have questions please contact the health outdoor emergency care technician that requested your imaging first. ? Narrative 02/20/2024 1:11 PM EDT EXAMINATION: XR CHEST PA AND LATERAL (GENERIC) CLINICAL HISTORY: s/p AVR/CABGx3 TECHNIQUE: PA and lateral views of the chest COMPARISON: 02/17/2024 FINDINGS: Support devices: Interval removal of Forsyth-Kaila catheter, endotracheal tube and mediastinal chest tubes The cardiac silhouette is stable status post median sternotomy, CABG and aortic valve replacement. There are small pleural effusions. No pneumothorax. Procedure Note Rogerio Cruz MD - 02/20/2024 EXAMINATION: XR CHEST PA AND LATERAL (GENERIC) CLINICAL HISTORY: s/p AVR/CABGx3 TECHNIQUE: PA and lateral views of the chest COMPARISON: 02/17/2024 FINDINGS: Support devices: Interval removal of Forsyth-Kaila catheter, endotracheal tubeand mediastinal chest tubes The [...] patients who have questions please contactthe health outdoor emergency care technician that requested your imaging first. Hayder Graham MD IMG DX ORDERABLES * Scan, Peripheral Blood (02/20/2024 4:23 AM EDT) Plat estimate Decreased [facility] RBC Morphology Normal [facility] Blood 02/20/2024 4:23 AM EDT 02/20/2024 4:42 AM EDT Narrative Resulting Agency Comment Spec In Lab Minnie FRENCH HEMATOLOGY CECILIO ALEMAN [facility] [address] * (ABNORMAL) Differential, Automated (02/20/2024 4:23 AM EDT) Pathologist [facility] Neutrophil % 81.7 % [facility] Neutrophil Absolute 10.37(H) 1.70 - 6.10 x10(3)/mc L [facility] Lymph % 7.4 % [facility] Lymphocytes Abs 0.9 0.9 - 3.2 x10(3)/mc L [facility] Monocyte % 9.7 % [facility] Monocyte Abs 1.2(H) 0.3 - 0.9 x10(3)/mc L [facility] Eos % 0.1 % [facility] Eosinophils Abs 0.0 0.0 - 0.4 x10(3)/mc L [facility] Basophil % 0.2 % [facility] [...] HEMATOLOGY CECILIO ALEMAN [facility] [place] [address] * (ABNORMAL) Hemogram (02/20/2024 4:23 AM EDT) White Blood Cell 12.7(H) 4.0 - 9.5 x10(3)/[facility] Red Blood Cell 4.26(L) 4.58 - 5.54 x10(6)/[facility] Hemoglobin 12.3(L) 13.7 - 16.5 g/dL [facility] Hematocrit 37.1(L) 40.5 - 48.5 % [facility] Mean Cell Volume 87.1 82.9 - 93.1 [facility] Mean Cell Hemoglobin 28.9 27.5 - 32.1 pg [facility] Mean Cell Hemoglobin Concentration 33.2 32.0 - 35.7 g/dL [facility] Platelet 88(L) 145 - 357 x10(3)/[facility] RDW Standard Deviation 43.5 36.0 - 45.0 [facility] RDW coefficient of variation 13.7 11.4 - 13.8 % [facility] Mean Platelet Volume 10.2 7.6 - 12.9 [facility] NRBC% auto 0.0 % [facility] NRBC Absolute 0.000 0.000 - 0.000 x10(3)/ L [facility] Blood 02/20/2024 4:23 AM EDT 02/20/2024 4:42 AM EDT Narrative Resulting Agency Comment Spec In Lab Minnie FRENCH HEMATOLOGY CECILIO ALEMAN [facility] [place] [address] * (ABNORMAL) Basic Metabolic Panel (non-fasting) (02/20/2024 [...] MD CHEMISTRY ORDERABLE S Performing Organization Address City/[facility]/ZIP Co de Phone Number [facility] [address] * Potassium (02/19/2024 3:57 AM EDT) Potassium [...] MD CHEMISTRY ORDERABLE S Performing Organization Address [facility] Co de Phone Number [facility] [address] * POCT Glucose (02/18/2024 8:24 AM EDT) Glucose, POC 157 65 - 199 mg/dL [facility] Comment: Supplemental ranges: <140 mg/dL before meals <180 mg/dL all other times of the day Blood 02/18/2024 8:24 AM EDT 02/18/2024 8:24 AM EDT Hayder Graham MD POINT OF CARE TEST ORDERABLES Performing Organization Address [facility]/ZIP Co de Phone Number [facility] [place] [address] * Scan, Peripheral Blood (02/18/2024 1:40 AM EDT) Plat estimate Decreased [facility] RBC Morphology Normal [facility] Blood 02/18/2024 1:40 AM EDT 02/18/2024 1:56 AM EDT Narrative Resulting Agency Comment Spec In Lab Neftali FRENCH HEMATOLOGY ORDER OLE [facility] [address] * (ABNORMAL) Differential, Automated (02/18/2024 1:40 AM EDT) Neutrophil % 87.1 % [facility] Neutrophil Absolute 15.03(H) 1.70 - 6.10 x10(3)/mc L [facility] Lymph % 3.0 % [facility] Lymphocytes Abs 0.5(L) 0.9 - 3.2 x10(3)/mc L [facility] Monocyte % 9.1 % [facility] Monocyte Abs 1.6(H) 0.3 - 0.9 x10(3)/mc L [facility] Eos % 0.0 % [facility] Eosinophils Abs 0.0 0.0 - 0.4 x10(3)/mc L [facility] Basophil % 0.2 % [facility] [...] HEMATOLOGY ORDER OLE [facility] [place] [address] * (ABNORMAL) Hemogram (02/18/2024 1:40 AM EDT) [...] Standard Deviation 39.9 36.0 - 45.0 fL [facility] RDW coefficient of variation 13.2 11.4 - 13.8 % [facility] Mean Platelet Volume 9.9 7.6 - 12.9 fL [facility] NRBC% auto 0.0 % [facility] NRBC Absolute 0.000 0.000 - 0.000 x10(3)/mc L [facility] Blood 02/18/2024 1:40 AM EDT 02/18/2024 1:56 AM EDT Narrative Resulting Agency Comment Spec In Lab Neftali FRENCH HEMATOLOGY ORDER OLE [facility] [place] [address] * (ABNORMAL) Basic Metabolic Panel (non-fasting) (02/18/2024 [...] Lab Hayder Graham MD CHEMISTRY ORDERABLE S [facility] [place] [address] * (ABNORMAL) Troponin (02/18/2024 1:40 AM EDT) [...] troponin value can be found in the [facility] Laboratory Test Catalog Troponin - [facility] Laboratory Test Catalog Reference: Fourth [place] Definition of Myocardial Infarction. Journal of the [place] College [employer] 2018;72:8445-9317 Blood 02/18/2024 1:40 AM EDT 02/18/2024 1:56 AM EDT Narrative Resulting Agency Comment Spec In Lab Hayder Graham MD CHEMISTRY ORDERABLE S [facility] [place] [address] * POCT Glucose (02/17/2024 8:13 PM EDT) Glucose, POC 142 65 - 199 mg/dL [facility] Comment: Supplemental ranges: <140 mg/dL before meals <180 mg/dL all other times of the day Blood 02/17/2024 8:13 PM EDT 02/17/2024 8:13 PM EDT Hayder Graham MD POINT OF CARE TEST ORDERABLES Performing Organization Address [facility] [facility] Co de Phone Number [facility] [place] [address] * POCT Glucose (02/17/2024 5:42 PM EDT) Glucose, POC 160 65 - 199 mg/dL [facility] Comment: Supplemental ranges: <140 mg/dL before meals <180 mg/dL all other times of the day Blood 02/17/2024 5:42 PM EDT 02/17/2024 5:42 PM EDT Hayder Graham MD POINT OF CARE TEST ORDERABLES Performing Organization Address [facility] Co de Phone Number [facility] [place] [address] * Hemoglobin (02/17/2024 5:42 PM EDT) [facility] Hemoglobin 13.7 13.7 - 16.5 g/dL [facility] Blood 02/17/2024 5:42 PM EDT 02/17/2024 6:10 PM EDT Narrative Resulting Agency Comment Spec In Lab Hayder Graham MD HEMATOLOGY ORDERABL ES Performing Organization Address [facility] Co de Phone Number [facility] [place] [address] * Potassium (02/17/2024 5:42 PM EDT) [facility] Potassium 4.3 3.5 - 5.0 mmol/L [facility] [...] Lab Hayder Graham MD CHEMISTRY ORDERABLE S [facility] [place] [address] * (ABNORMAL) BLOOD GAS 2 ARTERIAL (02/17/2024 [...] [facility] FIO2 Art 40 % [facility] PF Ratio Art 195 [facility] Blood 02/17/2024 4:18 PM EDT 02/17/2024 4:18 PM EDT Hayder Graham MD POINT OF CARE TEST ORDERABLES [facility] [place] [address] * XR Chest One View (02/17/2024 1:44 PM EDT) [employer] WORKSTATION ID [id number] DH RAD Anatomical Region Laterality Modality Chest N/A Digital Radiogra phy Impressions 02/17/2024 2:12 PM EDT 1. ??No definite pleural fluid collection or pneumothorax. 2. ??Right IJ Forsyth-Kaila catheter tip terminates in a descending branch of the right pulmonary artery. Suggest catheter retraction. 3. ??Additional support lines and tubes as above. Thank you for letting us participate in the care of this patient. ??If you are a health care provider and have any questions regarding this report, please contact the number below. ??For patients who have questions please contact the health outdoor emergency care technician that requested your imaging first. ? Narrative 02/17/2024 2:12 PM EDT EXAMINATION: XR CHEST ONE VIEW CLINICAL HISTORY: s/p avr/cabg eval effusions TECHNIQUE: 1 view of the chest COMPARISON: Chest x-ray 01/09/2024, chest CT 02/03/2024 FINDINGS: ET tube tip terminates 5.2 cm above the carlos. Right IJ Forsyth-Kaila catheter tip terminates in a descending branch [...] 5.2 cm above the carlos. Right IJ Forsyth-Ganzcatheter tip terminates in a descending branch of [...] fluid collection or pneumothorax. 2. Right IJ Forsyth-Kaila catheter tip terminates in a descending branch ofthe right pulmonary artery. Suggest catheter retraction. 3. Additional support lines and tubes as above. Thank you for letting us participate in the care of this patient. If youare a health care provider and have any questions regarding this report,please contact the number below. For patients who have questions please contactthe health outdoor emergency care technician that requested your imaging first. Hayder Graham [...] [facility] FIO2 Art 100 % [facility] PF Ratio Art 320 [facility] Blood 02/17/2024 1:31 PM EDT 02/17/2024 1:31 PM EDT Hayder Grahma MD POINT OF CARE TEST ORDERABLES [facility] [place] [address] * (ABNORMAL) Coox2 (02/17/2024 1:21 PM EDT) [...] OF CARE TEST ORDERABLES Performing Organization Address City/[facility]/ZIP Co de Phone Number [facility] [place] [address] * (ABNORMAL) BLOOD GAS 2 ARTERIAL (02/17/2024 [...] OF CARE TEST ORDERABLES Performing Organization Address [facility] Co de Phone Number [facility] [place] [address] * (ABNORMAL) Fibrinogen (02/17/2024 12:10 PM EDT) [...] MD HEMATOLOGY ORDERABLE S Performing Organization Address [facility] Co de Phone Number [facility] [place] [address] * (ABNORMAL) Thrombin time (02/17/2024 12:10 PM [...] MD HEMATOLOGY ORDERABLE S Performing Organization Address [facility] Co de Phone Number [facility] [place] [address] * APTT (02/17/2024 12:10 PM EDT) Partial [...] MD HEMATOLOGY ORDERABLE S Performing Organization Address [facility] Co de Phone Number [facility] [place] [address] * (ABNORMAL) Prothrombin Time (02/17/2024 12:10 PM [...] HEMATOLOGY ORDERABLE S [facility] [place] [address] * (ABNORMAL) Hemogram (02/17/2024 12:10 PM EDT) [...] [facility] NRBC% auto 0.0 % [facility] NRBC Absolute 0.000 0.000 - 0.000 x10(3)/mc L [facility] Blood 02/17/2024 12:1 0 PM EDT 02/17/2024 12:19 PM EDT Narrative Resulting Agency Comment Spec In Lab Tara York MD HEMATOLOGY ORDERABLE S [facility] [place] [address] * (ABNORMAL) BLOOD GAS 2 ARTERIAL (02/17/2024 [...] [facility] Comment: Noted by optical instrument inspector. Please note: Patients with WBC [...] CARE TEST ORDERABLES [facility] [place] [address] * (ABNORMAL) BLOOD GAS 2 ARTERIAL (02/17/2024 [...] [facility] Comment: Noted by optical instrument inspector. Please note: Patients with WBC [...] OF CARE TEST ORDERABLES Performing Organization Address [facility] de Phone Number [facility] [place] [address] * (ABNORMAL) Hemoglobin and Hematocrit, blood (02/17/2024 11:04 AM EDT) Hemoglobin 9.6(L) 13.7 - 16.5 g/dL [facility] [...] MD HEMATOLOGY ORDERABL ES Performing Organization Address [facility] de Phone Number [facility] [place] [address] * (ABNORMAL) Platelet count (02/17/2024 11:04 AM EDT) Platelet 106(L) 145 - 357 x10(3)/mc L [facility] Immature Plt % 1.6 0.0 - 7.4 % [facility] Comment: Limitation of the Immature Platelet Fraction (IPF)-May be less reliable when the platelet count is less than 71t168/uL due to statistical imprecision. The IPF value [...] in a decreased state of production. References: [employer] The Clinical Value of the Immature Platelet Fraction (IPF) in Cell Recovery Document Number 10-1143 03/2011 [employer] The Role of the Immature Platelet Fraction (IPF) in the Differential Diagnosis of Thrombocytopenia, Document MKT-[id number] V002/15/14 Blood 02/17/2024 11:0 4 AM EDT 02/17/2024 11:12 AM EDT Narrative Resulting Agency Comment Spec In Lab Hayder Graham MD HEMATOLOGY ORDERABL ES Performing Organization Address City/[facility]/ZIP Co de Phone Number [facility] [place] [address] * (ABNORMAL) Fibrinogen (02/17/2024 11:04 AM EDT) [...] MD HEMATOLOGY ORDERABL ES Performing Organization Address City/[facility]/ZIP Co de Phone Number [facility] [address] * (ABNORMAL) BLOOD GAS 2 ARTERIAL (02/17/2024 [...] CARE TEST ORDERABLES [facility] [place] [address] * (ABNORMAL) BLOOD GAS 2 ARTERIAL (02/17/2024 [...] CARE TEST ORDERABLES Performing Organization Address City/State/[facility] Co de Phone Number [facility] [place] [address] * Surgical Pathology Report (02/17/2024 10:01 AM EDT) Final Diagnosis [id number] ? Location: [facility]; [facility]; The signing pathologist has (i) examined the relevant preparation(s) for the specimen(s) and (ii) rendered or confirmed the diagnosis(es). . ?Surgical Pathology DIAGNOSIS Aortic valve leaflets, excision: Valve leaflets with myxoid degeneration, nodular fibrosis and dystrophic calcifications. Electronically signed by: ?Lindsay FERNANDEZ, Livier Gonzalez Verified: ??02/24/2024 13:49 ??Pathologist Performed at: ??-[facility] [place], [place] [address] Locksmith Apprentice: Job Brewer MD, FCAP, ??CLIA Certificate: [id number] SPECIMEN(S) SUBMITTED A - Aortic Valve Leaflets, [...] Processing Blocks submitted for decalcification: A1. Air Antisubmarine Officer sections in 1 cassette labeled A1. ??ajw 02/24/2024 1:49 PM EDT [facility] AORTIC STRUCTURE / Unknown 02/17/2024 10:01 AM EDT 02/17/2024 10:01 AM EDT Hayder Graham MD PATHOLOGY/[place] [address] * Specimen to Pathology (02/17/2024 10:01 AM EDT) AP Specimen 02/17/2024 10:0 1 AM EDT 02/17/2024 10:01 AM EDT Narrative [facility] - 02/17/2024 10:01 AM EDT Specimen requisition ordered. ??Separate Pathology report to follow Hayder Graham MD PATHOLOGY/CYTOLOGY ORDERABLES [facility] [place] [address] * (ABNORMAL) BLOOD GAS 2 ARTERIAL (02/17/2024 9:35 AM EDT) pH, Arterial 7.33(L) 7.35 - 7.45 [facility] PCO2, Arterial 35 35 - 45 mmHg [facility] PO2, Arterial 318(H) 85 - 104 mmHg [facility] Bicarbonate, Arterial 17.9(L) 20.0 - 26.0 mmol/L [facility] Base Excess, Arterial -8.0(L) [...] CARE TEST ORDERABLES [facility] [place] [address] * (ABNORMAL) BLOOD GAS 2 VENOUS (02/17/2024 9:34 AM EDT) pH, Venous 7.22(Criti marquez) 7.32 - 7.42 [facility] Comment:Noted by optical instrument inspector. PCO2, Venous 43 41 - 51 mmHg [facility] Comment:Noted by optical instrument inspector. PO2, Venous 57(H) 25 - 40 mmHg [facility] Comment:Noted by optical instrument inspector. Bicarbonate, Venous 17.1 mmol/L [facility] Comment:Noted by optical instrument inspector. Base Excess, Venous -10.6 mmol/L [facility] Comment:Noted by optical instrument inspector. Hgb Blood Gas 11.2(L) 13.7 - 16.5 g/dL [facility] Comment:Noted by optical instrument inspector. Oxyhemoglobin, Venous 86.5 % [facility] Comment:Noted by optical instrument inspector. Carboxyhemoglob in, Venous 0.3 % [facility] Comment: Noted by optical instrument inspector. Nonsmokers: 0.5-1.5% COHB Smokers: Variable, but usually less than 10% Toxic: 20-30% COHB Lethal: Greater than 60% COHB Methemoglobin, Venous 0.0 <=1.5 % [facility] Comment:Noted by optical instrument inspector. Na Whole Blood 156(H) 135 - 145 mmol/L [facility] Comment:Noted by optical instrument inspector. K Whole Blood 5.5(H) 3.5 - 5.0 mmol/L [facility] Comment: Noted by optical instrument inspector. Please note: Patients with WBC >100,000 may have falsely elevated Potassium levels. Contact the Clinical Chemistry Laboratory if there are any questions. ICa Whole Blood 1.03(L) 1.15 - 1.33 mmol/L [facility] Comment: Noted by optical instrument inspector. Note: ??Total bilirubin higher than 20 mg/dL may lead to falsely low ionized calcium. CL Whole Blood 100 98 - 107 mmol/L [facility] Comment:Noted by optical instrument inspector. Gluc Whole Bld 132 65 - 199 mg/dL [facility] Comment: Noted by optical instrument inspector. Diabetes: >=200 mg/dL plus symptoms Lactate WB 1.0 0.5 - 2.2 mmol/L [facility] Comment:Noted by optical instrument inspector. Blood Gas Source Venous [facility] Blood 02/17/2024 9:34 AM EDT 02/17/2024 9:34 AM EDT Hayder Graham MD POINT OF CARE TEST ORDERABLES [facility] [place] [address] * (ABNORMAL) BLOOD GAS 2 ARTERIAL (02/17/2024 [...] OF CARE TEST ORDERABLES Performing Organization Address City/[facility]/ZIP Co de Phone Number [facility] [place] [address] * POCT Glucose (02/17/2024 6:38 AM EDT) Glucose, POC 98 65 - 199 mg/dL [facility] Comment: Supplemental ranges: <140 mg/dL before meals <180 mg/dL all other times of the day Blood 02/17/2024 6:38 AM EDT 02/17/2024 6:38 AM EDT Hayder Graham MD POINT OF CARE TEST ORDERABLES Performing Organization Address [facility] Co de Phone Number [facility] [place] [address] * Transesophageal Echo/OR (02/17/2024 6:33 AM EDT) [...] [facility] [...] moderate 6-14 large 15-16 diffuse Reading Physician aTra York MD 02/17/2024, 4: 08 PM Ordering [...] Merrill, COLBY) 0836 (Given - Provider: Jazlyn Mladonado, COLBY) brimonidine (Alphagan) 0.2 % ophthalmic solution [...] Routine documented in this encounter Care Teams Instructor Traffic Safety Relationship Specialty Start Date End Date Aparna Jordan APRN PCP - General Family Medicine 10/21/23 05/26/24 documented as of this encounter
--- OUTSIDE RECORDS SUMMARY | 2024-08-20 10:37 | XMS_ITS | Encounter Summary ---
Author Organization [facility] [place] [address] Care Team Providers Care Branch Sales Manager Name Role Phone Vanessa Christian Lane DOTSON Primary Care Provider [phone] Encounter Details Date Type Department Care Team (Latest Contact Info) Description 01/09/2024 3:00 PM EDT Laboratory [place] [id number] Nonrheumatic aortic valve stenosis Social History Tobacco [...] Recheck Status (01/09/2024 2:58 PM EDT) Pathologist [facility] ABORH Recheck Order Order Placed [facility] ABORH Type Recheck Completed [facility] Blood 01/09/2024 2:58 PM EDT 01/09/2024 3:08 PM EDT Narrative Resulting Agency Comment Spec In Lab Zak Farmer MD BLOOD BANK LAB ORDE ASH [facility] [place] [address] * Differential, Automated (01/09/2024 2:58 PM EDT) Neutrophil % 70.5 % [facility] Neutrophil Absolute 4.34 1.70 - 6.10 x10(3)/[facility] Lymph % 18.9 % [facility] Lymphocytes Abs 1.2 0.9 - 3.2 x10(3)/[facility] Monocyte % 8.0 % [facility] Monocyte Abs 0.5 0.3 - 0.9 x10(3)/[facility] Eos % 1.6 % [facility] Eosinophils Abs 0.1 0.0 - 0.4 x10(3)/[facility] Basophil % 0.5 % [facility] Baso Absolute 0.0 0.0 - 0.1 x10(3)/[facility] Immature Gran % 0.50 % [facility] Comment: Immature granulocytes(IG's)percentage and absolute count will include metamyelocytes, myelocytes, and promyelocytes. Blood smears from CBCs yielding IG's will be scanned manually for concordance. If this scan disagrees with the automated IG or if promyelocytes are noted, a manual differential will be performed. Immature Gran Absolute 0.03 0.00 - 0.04 x10(3)/[facility] Blood 01/09/2024 2:58 PM EDT 01/09/2024 3:03 PM EDT Narrative Resulting Agency Comment Spec In Lab Zak Farmer MD HEMATOLOGY ORDERABL ES [facility] [place] [address] * Hemogram (01/09/2024 2:58 PM EDT) White Blood Cell 6.2 4.0 - 9.5 x10(3)/[facility] Red Blood Cell 5.53 4.58 - 5.54 x10(6)/[facility] Hemoglobin 16.1 13.7 - 16.5 g/dL [facility] Hematocrit 46.9 40.5 - 48.5 % [facility] Mean Cell Volume 84.8 82.9 - 93.1 fL [facility] Mean Cell Hemoglobin 29.1 27.5 - 32.1 pg [facility] Mean Cell Hemoglobin Concentration 34.3 32.0 - 35.7 g/dL [facility] Platelet 187 145 - 357 x10(3)/[facility] RDW Standard Deviation 39.2 36.0 - 45.0 [facility] RDW coefficient of variation 12.6 11.4 - 13.8 % [facility] Mean Platelet Volume 9.5 7.6 - 12.9 [facility] NRBC% auto 0.0 % [facility] NRBC Absolute 0.000 0.000 - 0.000 x10(3)/[facility] Blood 01/09/2024 2:58 PM EDT 01/09/2024 3:03 PM EDT Narrative Resulting Agency Comment Spec In Lab Zak Farmer MD HEMATOLOGY ORDERABL ES [facility] [place] [address] * Basic Metabolic Panel (non-fasting) (01/09/2024 2:58 [...] S Performing Organization Address [facility] Co de Phone Number [facility] [place] [address] * Hepatic Function Panel (01/09/2024 2:58 PM [...] S Performing Organization Address [facility] Co de Phone Number [facility] [place] [address] * Prothrombin Time (01/09/2024 2:58 PM EDT) [...] City/[facility]/ZIP Co de Phone Number [facility] [place] [address] * Type and Screen Future Surgery, MEDICAL [...] Farmer MD BLOOD BANK LAB ORDE RABLES [facility] [place] [address] documented in this encounter Visit Diagnoses Diagnosis Nonrheumatic aortic valve stenosis Aortic valve disorders documented in this encounter Care Teams Branch Sales Manager Relationship Specialty Start Date End Date Vanessa Christian APRN PCP - General Family Medicine 1/15/24 8/20/24 documented as of this encounter
--- OUTSIDE RECORDS SUMMARY | 2024-08-20 10:37 | XMS_ITS | Encounter Summary ---
Author Organization [facility] Address [facility] [place] [address] Care Team Providers Care Lopper Name Role Phone Vanessa Christian MAURI Primary Care Provider [phone] Encounter Details Date Type Department Care Team (Late st Contact Info) Description 02/14/2024 Orders Only [place] [phone] Zak Farmer MD [facility] DR [place] [address] Coronary artery disease, unspecified vessel or lesion type, unspecified whether angina present, unspecified whether chemehuevi or transplanted heart (Primary Dx) Social History [...] (Bezet) 401 ms MUSE SYSTEM Calculated P Torrance -12 degrees MUSE SYSTEM Calculated R [place] 24 degrees MUSE SYSTEM Calculated T [place] 74 degrees MUSE SYSTEM INTERPRETATION Sinus bradycardia T wave abnormality, consider anterior ischemia Abnormal ECG When compared with ECG of 17-FEB-2024 13:24, SD interval has decreased T wave inversion now evident in Anterior leads Confirmed by Paul Guzman ([id number]) on 03/15/2024 8:36:23 AM MUSE SYSTEM 03/12/2024 2:35 PM EDT 03/15/2024 8:36 AM EDT Zak Farmer MD ECG ORDERABLES MUSE SYSTEM * XR Chest PA & Lateral (Generic) (03/12/2024 1:42 PM EDT) Pathologist [facility] WORKSTATION ID [id number] [facility] Anatomical Region Laterality Modality Chest N/A Digital [...] who have questions please contact the health med care manager that requested your imaging first. [...] patients who have questions please contactthe health med care manager that requested your imaging first. Zak Farmer MD IMG DX ORDERABLES documented in this encounter Visit Diagnoses Diagnosis Coronary artery disease, unspecified vessel or lesion type, unspecified whether angina present, unspecified whether chemehuevi or transplanted heart- Primary Coronary artery disease, unspecified vessel or lesion type, unspecified whether angina present, unspecified whether chemehuevi or transplanted heart documented in this encounter Care Teams Lopper Relationship Specialty Start Date End Date Vanessa Christian APRN PCP - General Family Medicine 10/21/23 05/26/24 documented as of this encounter
--- OUTSIDE RECORDS SUMMARY | 2024-08-20 10:37 | XMS_ITS | Encounter Summary ---
Author Organization [facility] Address [facility] [place] [address] Care Team Providers Care Rheologist Name Role Phone Vanessa Christian MAURI Primary Care Provider [phone] Encounter Details Date Type Department Care Team (Latest Contact Info) Description 01/09/2024 3:02 PM EDT - 01/09/2024 11:59 PM EDT Hospital Encounter XRay at [address] [place] [address] Zak Farmer MD [facility] [place] [address] Nonrheumatic aortic valve stenosis Discharge Disposition: Home [...] have questions please contact the health career orientation teacher that requested your imaging first. ? Electronically signed by: Toby Dave MD, [facility] ([phone]), at 01/09/2024 3:11 PM Narrative 01/09/2024 3:11 [...] who have questions please contactthe health career orientation teacher that requested your imaging first. Zak Farmer MD IMG DX ORDERABLES documented in this encounter Visit Diagnoses Diagnosis Nonrheumatic aortic valve stenosis Aortic valve disorders documented in this encounter Care Teams Rheologist Relationship Specialty Start Date End Date Vanessa Christian APRN PCP - General Family Medicine 10/21/23 05/26/24 documented as of this encounter
--- OUTSIDE RECORDS SUMMARY | 2024-08-20 10:37 | XMS_ITS | Encounter Summary ---
Author Organization [facility] [place] [address] Care Team Providers Care Outfitter Cabin Name Role Phone Vanessa Christian APRN Primary Care Provider [phone] Encounter Details Date Type Department Care Team [...] on filedocumented in this encounter Care Teams Outfitter Cabin Relationship Specialty Start Date End Date Vanessa Christian APRN PCP - General Family Medicine 10/21/23 05/26/24 documented as of this encounter
--- OUTSIDE RECORDS SUMMARY | 2024-08-20 10:37 | XMS_ITS | Encounter Summary ---
Author Organization [facility] [place] [address] Care Team Providers Care Fuel Cell Test Engineer Name Role Phone Vanessa Christian APRN Primary Care Provider [phone] Encounter Details Date Type Department Care Team [...] on filedocumented in this encounter Care Teams Fuel Cell Test Engineer Relationship Specialty Start Date End Date Vanessa Christian APRN PCP - General Family Medicine 10/21/23 05/26/24 documented as of this encounter
--- OUTSIDE RECORDS SUMMARY | 2024-08-20 10:37 | XMS_ITS | Encounter Summary ---
Author Organization [facility] [place] [address] Care Team Providers Care Rough Patcher Name Role Phone Vanessa Christian Lane DOTSON Primary Care Provider [phone] Encounter Details Date Type Department Care Team (Late st Contact Info) Description 01/09/2024 2:30 PM EDT Clinical Support Same Day at [facility] [place] [id number] Social History Tobacco Use Types Packs/Day Years [...] you tube link for a video about [facility] cardiac surgery. Instructed to bring the booklet [...] type and screen performed while in the [facility]. Sent to Radiology for chest x-ray. Special medication instructions: None Procedure date: not booked. Darian documented in this encounter Plan of Treatment Not on file documented as of this encounter Visit Diagnoses Not on filedocumented in this encounter Care Teams Rough Patcher Relationship Specialty Start Date End Date Vanessa Christian APRN PCP - General Family Medicine 10/21/23 05/26/24 documented as of this encounter
--- OUTSIDE RECORDS SUMMARY | 2024-08-20 10:37 | XMS_ITS | Encounter Summary ---
Author Organization [facility] [place] [address] Care Team Providers Care Court Operations Clerk Name Role Phone Vanessa Christian MAURI Primary Care Provider [phone] Reason for Visit * Auth/Cert (Routine) Specialty [...] MD [facility] [place] [address] [facility] Referral ID Status Reason Start Date Expiration Date Visits Re quested Visits Authorized [id number] 1 1 Encounter Details Date Type Department Care Team (Latest Contact Info) Description 02/03/2024 8:06 AM EDT - 02/03/2024 2:54 PM EDT Hospital Encounter [place] [address] Rima Dickinson MD [facility] [place] [address] Screening for cardiovascular condition; Aortic valve stenosis, [...] lbs Follow-up Visits Follow up with your information systems security developer in 2-4 weeks Access Site 'Black and Blue' and tenderness is expected during the first week Call if you noted a mass (lump) greater than the size of a ellis Call Office with any Questions and if you have any of the following Clarence Lane M.D Interventional Freelance Photographer Population Health Manager #: [phone] * Attachments The following attachments cannot be sent through Care Everywhere. * CAD (Coronary Artery Disease): General Info (Angolan) * Coronary Angiogram: Post-op (Angolan) documented in this encounter Medications at Time [...] Pre-Procedure H&P Update: Cardiac Catheterization Karlos Anthony [id number] 1960 Chief Complaint: Aortic stenosis HPI: Mr. [...] is inthe chart Clarence Lane MD Interventional Freelance Photographer 02/03/24 11:48 AM documented in this encounter Miscellaneous Notes * Brief Op Note - Clarence Lane MD - 02/03/2024 12:51 PM EDT Preliminary Cardiac Catheterization Procedure Note: Patient Name: Karlos Anthony : [id number] MR#: [id number] Case Date: 02/03/2024 Population Health Manager: Surgeon(s) and Role: * Saira Lua MD [...] early complications. Full report to follow. Clarence Lnae MD documented in this encounter Plan of [...] Modality Other Narrative 02/12/2024 3:47 PM EDT ?[facility] ? Cardiac Catheterization/Intervention Report ? Patient Name: Patenaude, Karlos ? Procedure Date: 02/03/2024 ? A #: [id number] ? Primary Physician: Mogadam, Emad ? Case #: [id number] ? File Name: [id number] ? Catheterization Order Number: [id number] ? [facility] ? Final Report [place], [place] ? Patient Name: ? Karlos Anthony ? ID#: [id number] ? : ?1960 ? Procedure Date: ? [...] Procedure Note Saira Lua MD - 02/12/2024 [facility] Cardiac Catheterization/Intervention Report Patient Name: Karlos Anthony Procedure Date: 02/03/2024 A #: [id number] Primary Physician: Saira Lua Case #: [id number] File Name: [id number] Catheterization Order Number: [id number] [facility] FinalReport [place], [place] Patient Name: Karlos Anthony ID#:[id number] :1960 Procedure Date: February 03, 2024 Case [...] was designated as ASA Class III. The [facility] clinical frailty scale is 3: Managing [...] (Bezet) 372 ms MUSE SYSTEM Calculated P Blackstone 59 degrees MUSE SYSTEM Calculated R Blackstone 34 degrees MUSE SYSTEM Calculated T Blackstone 63 degrees MUSE SYSTEM INTERPRETATION Sinus bradycardia [...] MD) documented in this encounter Care Teams Court Operations Clerk Relationship Specialty Start Date End Date Vanessa Christian APRN PCP - General Family Medicine 10/21/23 05/26/24 documented as of this encounter
--- OUTSIDE RECORDS SUMMARY | 2024-08-20 10:37 | XMS_ITS | Encounter Summary ---
[place] [address] Care Team Providers Care Chief Nursing Executive Name Role Phone Vanessa Christian MAURI Primary Care Provider [phone] Reason for Visit * Auth/Cert (Routine) Specialty [...] W RHC (WRVU 5.9) Rima Dickinson MD [facility] [place] [address] [facility] Referral ID Status Reason Start Date Expiration Date Visits Re quested Visits Authorized [id number] 1 1 Encounter Details Date Type Department Care Team (Late st Contact Info) Description 02/03/2024 10:00 AM EDT - 02/03/2024 11:00 AM EDT Surgery Roller [place] [address] Saira Lua MD CARDIAC CATHETERIZATION Social History [...] lbs Follow-up Visits Follow up with your grease refiner operator in 2-4 weeks Access Site 'Black and Blue' and tenderness is expected during the first week Call if you noted a mass (lump) greater than the size of a ellis Call Office with any Questions and if you have any of the following Clarence Lane M.D Interventional Solar Project Coordination Specialist Sports Statistician #: [phone] * Attachments The following attachments cannot be sent through Care Everywhere. * CAD (Coronary Artery Disease): General Info (Venezuelan) * Coronary Angiogram: Post-op (Venezuelan) documented in this encounter Medications at Time [...] - 02/03/2024 11:48 AM EDT [facility] Interventional Cardiology Adult Pre-Procedure H&P Update: Cardiac Catheterization Karlos Anthony [id number] 1960 Chief Complaint: Aortic stenosis HPI: Mr. [...] is inthe chart Clarence Lane MD Interventional Solar Project Coordination Specialist 02/03/24 11:48 AM documented in this encounter Miscellaneous Notes * Brief Op Note - Clarence Lane MD - 02/03/2024 12:51 PM EDT Preliminary Cardiac Catheterization Procedure Note: Patient Name: Karlos Anthony : [id number] MR#: [id number] Case Date: 02/03/2024 Sports Statistician: Surgeon(s) and Role: * Saira Lua MD [...] Modality Other Narrative 02/12/2024 3:47 PM EDT ?[facility] ? Cardiac Catheterization/Intervention Report ? Patient Name: Patenaude, Karlos ? Procedure Date: 02/03/2024 ? A #: [id number] ? Primary Physician: Mogadam, Emad ? Case #: [id number] ? File Name: [id number] ? Catheterization Order Number: [id number] ? [facility] ? Final Report [place], [place] ? Patient Name: ? Karlos Patenaude ? ID#: [id number] ? : ?1960 ? Procedure Date: ? [...] Procedure Note Saira Lua MD - 02/12/2024 [facility] Cardiac Catheterization/Intervention Report Patient Name: Karlos Anthony Procedure Date: 02/03/2024 A #: [id number] Primary Physician: Saira Lua Case #: [id number] File Name: [id number] Catheterization Order Number: [id number] [facility] FinalReport [place], [place] Patient Name: Karlos Anthony ID#:[id number] :1960 Procedure Date: February 03, 2024 Case [...] as ASA Class III. The [facility] clinical frailty scale is 3: Managing [...] (Bezet) 372 ms MUSE SYSTEM Calculated P Cisco 59 degrees MUSE SYSTEM Calculated R Cisco 34 degrees MUSE SYSTEM Calculated T Cisco 63 degrees MUSE SYSTEM INTERPRETATION Sinus bradycardia [...] MD) documented in this encounter Care Teams Chief Nursing Executive Relationship Specialty Start Date End Date Vanessa Christian APRN PCP - General Family Medicine 10/21/23 05/26/24 documented as of this encounter
--- OUTSIDE RECORDS SUMMARY | 2024-08-20 10:37 | XMS_ITS | Encounter Summary ---
Author Organization [facility] [place] [address] Care Team Providers Care Hot Tamale Worker Name Role Phone Vanessa Christian APRN Primary Care Provider [phone] Encounter Details Date Type Department Care Team (Late st Contact Info) Description 12/26/2023 Notes Only Cardiology at [address] [place] [address] Neftali Ernandez MD [facility] [place] [address] Social History Tobacco Use Types Packs/Day Years [...] 1:37 PM EDT Echocardiogram images reviewed from [facility]. Indeed, the aortic valve appears severely stenotic. Cannotrule out bicuspid valve documented in this encounter Plan of Treatment Not on file documented as of this encounter Visit Diagnoses Not on filedocumented in this encounter Care Teams Hot Tamale Worker Relationship Specialty Start Date End Date Vanessa Christian APRN PCP - General Family Medicine 10/21/23 05/26/24 documented as of this encounter
--- OUTSIDE RECORDS SUMMARY | 2024-08-20 10:37 | XMS_ITS | Encounter Summary ---
[place] [address] Care Team Providers Care Systems Test Technician Name Role Phone Victor M Lafleur MD Primary Care Provider [phone] Reason for Visit * Reason Onset Date Comments Referral 09/20/2023 Encounter Details Date Type Department Care Team (Late st Contact Info) Description 09/20/2023 Telephone Cardiology at [address] [address] Karen Billy, bakery worker Social History Tobacco Use Types Packs/Day Years [...] on filedocumented in this encounter Care Teams Systems Test Technician Relationship Specialty Start Date End Date Victor M Lafleur MD PCP - General 10/02/13 10/20/23 documented as of this encounter
--- OUTSIDE RECORDS SUMMARY | 2024-08-20 10:37 | XMS_ITS | Encounter Summary ---
Author Organization [facility] [place] [address] Care Team Providers Care Computer Equipment Repairer Name Role Phone Vanessa Christian APRN Primary Care Provider [phone] Encounter Details Date Type Department Care Team (Late st Contact Info) Description 01/10/2024 Orders [place] [id number] Lawson Napoles PA [facility] [place] [place] [address] Screening for cardiovascular condition; Aortic valve stenosis, [...] unspecified documented in this encounter Care Teams Computer Equipment Repairer Relationship Specialty Start Date End Date Vanessa Christian APRN PCP - General Family Medicine 10/21/23 05/26/24 documented as of this encounter
--- OUTSIDE RECORDS SUMMARY | 2024-08-20 10:37 | XMS_ITS | Encounter Summary ---
Author Organization [facility] [place] [address] Care Team Providers Care Jelly Filter Tender Name Role Phone Victor M Lafleur MD Primary Care Provider [phone] Encounter Details Date Type Department Care Team (Late st Contact Info) Description 09/26/2023 Abstract Cardiology at [address] [address] Karen Billy, RN Nonrheumatic aortic [...] face documented in this encounter Care Teams Jelly Filter Tender Relationship Specialty Start Date End Date Victor M Lafleur MD PCP - General 10/02/13 10/20/23 documented as of this encounter
--- OUTSIDE RECORDS SUMMARY | 2024-08-20 10:37 | XMS_ITS | Encounter Summary ---
Author Organization [facility] [place] [address] Care Team Providers Care Remedial Project Manager Name Role Phone Vanessa Christian APRN Primary Care Provider [phone] Encounter Details Date Type Department Care Team (Late st Contact Info) Description 10/21/2023 Abstract Cardiology at [address] [place] [address] Adam Mayes RN Social History Tobacco Use [...] on filedocumented in this encounter Care Teams Remedial Project Manager Relationship Specialty Start Date End Date Vanessa Christian APRN PCP - General Family Medicine 10/21/23 05/26/24 documented as of this encounter
--- OUTSIDE RECORDS SUMMARY | 2024-08-20 10:37 | XMS_ITS | Encounter Summary ---
Author Organization [facility] Address [facility] [place] [address] Care Team Providers Care Jewelry Technician Name Role Phone Vanessa Christian MAURI Primary Care Provider [phone] Reason for Visit * Consultation (Routine) - Closed Specialty Diagnoses / Procedures Referred By Contac t Referred To Contact Cardiac Surgery Diagnoses Nonrheumatic aortic valve stenosis significant - TAVR ( defers to Card Surg d/t age) Neftali Ernandez MD [facility] [place] [address] Zak Farmer MD [facility] [place] [address] Referral ID Status Reason Start Date Expiration Date V isits Requested Visits Authorized [id number] Closed Consult, Test & Treat 10/21/2023 10/20/2024 1 1 Encounter Details Date Type Department Care Team (Late st Contact Info) Description 01/09/2024 1:40 PM EDT Office Visit Cardiac [place] [address] Zak Farmer MD [facility] [place] [address] Nonrheumatic aortic valve stenosis Social [...] an opportunity to meet today with Mr. Satna to discuss issues surrounding the management of [...] office. Best personal regards, Zak Farmer MD [phone] In aggregate 55 minutes were spent evaluating [...] questions please contact the health home health caregiver that requested your imaging first. ? [...] have questions please contactthe health home health caregiver that requested your imaging first. Zak [...] CHEMISTRY ORDERABLE S [facility] [place] [address] * Hepatic Function Panel (01/09/2024 2:58 PM [...] ORDERABLE S Performing Organization Address [facility] Co de Phone Number [facility] [place] [address] * Prothrombin Time (01/09/2024 2:58 PM EDT) [...] ORDERABL ES Performing Organization Address [facility] Co de Phone Number [facility] [place] [address] * Type and Screen Future Surgery, [facility] SAME DAY PROGRAM ONLY) (01/09/2024 2:58 PM EDT) ABORH Type O NEGATIVE [facility] Patient BB History Not Found [facility] Expires at [id number] on: 02-20-2024 [facility] Ab Screen Interp Negative [facility] Blood 01/09/2024 2:58 PM EDT 01/09/2024 2:58 PM EDT Narrative Resulting Agency Comment Spec In Lab Zak Farmer MD [facility] ASH Performing Organization Address City/State/[facility] Co de Phone Number [facility] [place] [address] documented in this encounter Visit Diagnoses Diagnosis Nonrheumatic aortic valve stenosis Aortic valve disorders Nonrheumatic aortic valve stenosis Aortic valve disorders documented in this encounter Care Teams Jewelry Technician Relationship Specialty Start Date End Date Vanessa Christian, BANKRUPTCY JUDGE PCP - General Family Medicine 10/21/23 05/26/24 documented as of this encounter
[2024-08-20 10:42] VITALS: BP 148/75; PULSE 79
--- OUTSIDE RECORDS SUMMARY | 2024-08-25 10:03 | XMS_ITS | Referral Summary ---
Author Organization [facility] Address [address] [place] [address] Care Team Providers Care Camp Guard Name Role Phone Vanessa Christian Lane MONCADA Primary Care Provider [phone] Social History Tobacco Use Types Packs/Day Years Used Date Smoking Tobacco: Never Assessed Sex and Gender Information Value Date Recorded Sex Assigned at Not on file Legal Sex Male 22:02 EST Gender Identity Not on file Sexual Orientation Not on file Plan of Treatment Not on file Insurance R Care Teams Camp Guard Relationship Specialty Start Date End Date Vanessa Christian, ANTWAN [address] [place] [phone] PCP - General Family Medicine - Primary Care 10/07/23
--- OUTSIDE RECORDS SUMMARY | 2024-08-25 10:03 | XMS_ITS | Encounter Summary ---
Author Organization [facility] Address [facility] [place] [address] Care Team Providers Care Precision Assembler Bench Name Role Phone Vanessa Christian MAURI Primary Care Provider [phone] Encounter Details Date Type Department Care Team [...] on filedocumented in this encounter Care Teams Precision Assembler Bench Relationship Specialty Start Date End Date Vanessa Christian APRN PCP - General Family Medicine 10/21/23 05/26/24 documented as of this encounter
--- OUTSIDE RECORDS SUMMARY | 2024-08-25 10:03 | XMS_ITS | Clinical Summary ---
Author Organization [facility] Address [facility] [place] [address] Care Team Providers Care First Officer And Flight Instructor Name Role Phone Vanessa Christian Lane DOTSON Primary Care Provider [phone] Allergies No known active allergies Medications Medication [...] the meantime will refer to SHT at [facility] for further evaluation. Logistics and preliminary review of TONY were reviewed with patient. - Refer to SHT Hypertension 08/14/2023 Resolved Problems Problem Noted Date Diagnosed Date Resolved Date Nevus of face 09/26/2023 05/27/2024 Overview (09/26/2023): Right zoroastrianism Chest pressure 08/14/2023 10/21/2023 SILVA (dyspnea on exertion) 08/14/2023 HLD (hyperlipidemia) 08/14/2023 024 Encounters Date Type Department Care Team Description 05/27/2024 11:00 AM EDT Office Visit Cardiology at [address] [place] [address] Neftali Ernandez MD ASCVD (arteriosclerotic cardiovascular disease); Nonrheumatic aortic valve stenosis 05/27/2024 Travel from Last 3 Months Social History Tobacco Use Types Packs/Day Years Used Date Smoking Tobacco: Former Cigarettes Smokeless Tobacco: Never Comments:Quit 15 + years ago Alcohol Use Standard Drinks/Week Comments Yes 0 (1 standard drink = 0.6 oz pur e alcohol) rare [facility] Utilities Answer Date Recorded In [...] PCV) 2024 Medical Devices Implanted Type Area Casing Runner Device Identifier Shelf Expiration Date Model / Serial / Lot Cable,Cut,Edg ,Blnt,Ss,3tpr ([id number]) - [id number] Implanted:Qty : 1 on 02/17/2024 by Zak Farmer MD at [facility] IMPLANTS Midline: Chest [employer] - [id number] 09/02/2028 [id number] / / [id number] Valve Coronary Aortic 23mm Tissue Trnscath Biopros Inspiris ([id number]) (Autoreq) - [id number] Implanted:Qty : 1 on 02/17/2024 by Zak Farmer MD at [facility] IMPLANTS Heart [employer] - TSAI LI 09/15/2027 [id number] / [id number] / Procedures Procedure Name Priority Date/Time Associated [...] (Bezet) 367 ms MUSE SYSTEM Calculated P [place] 12 degrees MUSE SYSTEM Calculated R [place] 27 degrees MUSE SYSTEM Calculated T [place] 62 degrees MUSE SYSTEM INTERPRETATION Sinus bradycardia with 1st degree A-V block Otherwise normal ECG When compared with ECG of 12-MAR-2024 14:35, T wave inversion no longer evident in Anterior leads Confirmed by MD Oma, Neftali ([id number]) on 06/01/2024 8:36:17 AM MUSE SYSTEM 05/27/2024 11:2 4 AM EDT 06/01/2024 8:36 AM EDT Unknown ECG ORDERABLES Performing Organization Address City/State/[facility] Co de Phone Number MUSE SYSTEM from Last 3 Months Advance [...] Status decision made by: Patient Care Teams First Officer And Flight Instructor Relationship Specialty Start Date End Date Vanessa Christian APRN [address] [place] [address] PCP - General Family Medicine 05/27/24
--- OUTSIDE RECORDS SUMMARY | 2024-08-25 10:03 | XMS_ITS | Encounter Summary ---
Author Organization [facility] Address [address] [place] [address] Care Team Providers Care Manager Automotive Name Role Phone Filidayna Vanessa Dayna MONCADA Primary Care Provider [phone] Encounter Details Date Type Department Care Team (Late st Contact Info) Description 10/24/2023 Lab Requisition [facility] Pathology & Laboratory Medicine - [address] [address] Oscar iNchole MD [address] [place] [phone] Factitial dermatitis Social History Tobacco Use Types [...] options, if applicable. 10/28/2023 11:24 EST [facility] Final Diagnosis A. SKIN OF EPISCOPAL, LEFT, SHAVE BIOPSY: - Seborrheic keratosis, pigmented. 10/28/2023 11:24 EST [facility] Attestation By the signature below, the attending physician certifies that they have 1) personally conducted a gross and/or microscopic examination of the described specimen(s), and/or personally interpreted the results of laboratory testing of the described specimen(s), and 2) personally rendered or confirmed the above diagnosis. 10/28/2023 11:24 [facility] at [address] Microscopic Description The stratum corneum is thickened by compact and basketweave orthokeratosis with formation of horn pseudocysts. The epidermis is acanthotic with formation of broad and anastomosing trabeculae. The trabeculae are composed of basaloid keratinocytes with round uniform nuclei. The keratinocytes have a variable amount of melanin pigment. 10/28/2023 11:24 [facility] Clinical History Pigmented 2 cm patch; clinical diagnosis code: L98.1 10/28/2023 11:24 [facility] Gross Description A. Received in formalin labelled with proper patient identification (initials P, A) and left advent is a shave biopsy of an irregular [...] A3. Nora Anderson 10/25/2023 8:47 10/28/2023 11:24 [facility] Performing Lab [facility] 10/28/2023 11:24 [facility] Scanned Images 10/28/2023 11:24 [facility] Tissue SPECIMEN FROM SKIN / Unknown 10/24/2023 14:30 EST 10/24/2023 22:04 EST us Oscar Nichole MD PATHOLOGY ORDERABLES Final Resul t [facility] [address] [place] [address] documented in this encounter Visit Diagnoses Diagnosis Factitial dermatitis Dermatitis factitia (artefacta) documented in this encounter Care Teams Manager Automotive Relationship Specialty Start Date End Date Vanessa Christian NP [address] [place] [address] PCP - General Family Medicine - Primary Care 10/07/23 documented as of this encounter
--- OUTSIDE RECORDS SUMMARY | 2024-08-25 10:03 | XMS_ITS | Encounter Summary ---
Author Organization [facility] Address [facility] [place] [address] Care Team Providers Care Supervisor Airplane Flight Attendant Name Role Phone Vanessa Christian MAURI Primary Care Provider [phone] Encounter Details Date Type Department Care Team (Latest Contact Info) Description 05/27/2024 Travel Social History Tobacco Use Types Packs/Day Years Used Date Smoking Tobacco: Former Cigarettes Smokeless Tobacco: Never Comments:Quit 15 + years ago Alcohol Use Standard Drinks/Week Comments Yes 0 (1 standard drink = 0.6 oz pur e alcohol) rare [facility] Utilities Answer Date Recorded In the [...] filedocumented in this encounter Care Teams Supervisor Airplane Flight Attendant Relationship Specialty Start Date End Date Vanessa Christian APRN [address] [place] [address] PCP - General Family Medicine 05/27/24 documented as of this encounter
--- OUTSIDE RECORDS SUMMARY | 2024-08-25 10:03 | XMS_ITS | Encounter Summary ---
Author Organization [facility] [place] [address] Care Team Providers Care Line Cleaner Name Role Phone Vanessa Christian MAURI Primary Care Provider Encounter Details Date Type Department Care Team (Latest Contact Info) Description 05/20/2024 Travel Social History Tobacco Use Types Packs/Day Years Used Date Smoking Tobacco: Former Cigarettes Smokeless Tobacco: Never Comments:Quit 15 + years ago Alcohol Use Standard Drinks/Week Comments Yes 0 (1 standard drink = 0.6 oz pur e alcohol) rare [facility] Utilities Answer Date Recorded In [...] on filedocumented in this encounter Care Teams Line Cleaner Relationship Specialty Start Date End Date Vanessa Christian APRN PCP - General Family Medicine 10/21/23 05/26/24 documented as of this encounter
--- OUTSIDE RECORDS SUMMARY | 2024-08-25 10:03 | XMS_ITS | Encounter Summary ---
Author Organization [facility] Address [facility] [place] [address] Care Team Providers Care Tromper Name Role Phone Vanessa Christian MAURI Primary Care Provider [phone] Encounter Details Date Type Department Care Team (Late st Contact Info) Description 03/12/2024 2:40 PM EDT Office Visit [place] [id number] Zak Farmer MD [facility] [place] [address] Coronary artery disease, unspecified vessel or lesion type, unspecified whether angina present, unspecified whether ruby or transplanted heart Social History Tobacco Use Types Packs/Day Years Used Date Smoking Tobacco: Former Cigarettes Smokeless Tobacco: Never Comments:Quit 15 + years ago Alcohol Use Standard Drinks/Week Comments Yes 0 (1 standard drink = 0.6 oz pur e alcohol) rare [facility] Utilities Answer Date Recorded In the past 12 months has e [place], gas, oil, or water [employer] threatened to shut off services in your [...] 2:40 PM EDT To: MD Vanessa Coles, CLAIMS SORTER Re; Karlos Santa ( 1960) We had [...] office. Best personal regards, Zak Farmer MD [phone] documented in this encounter Plan of Treatment Not on file documented as of this encounter Procedures Procedure Name Priority Date/Time Associated Diagnosis Comments EKG 12-LEAD Routine 03/12/2024 2:35 PM EDT Coronary artery disease, unspecified vessel or lesion type, unspecified whether angina present, unspecified whether ruby or transplanted heart documented in this encounter Results * EKG 12 Lead (03/12/2024 2:35 PM EDT) Ventricular rate 59 BPM MUSE SYSTEM Atrial Rate 59 BPM MUSE SYSTEM P-R Interval 190 ms MUSE SYSTEM QRS Duration 92 ms MUSE SYSTEM Q-T Interval 406 ms MUSE SYSTEM QTC Calculated (Bezet) 401 ms MUSE SYSTEM Calculated P [place] -12 degrees MUSE SYSTEM Calculated R [place] 24 degrees MUSE SYSTEM Calculated T [place] 74 degrees MUSE SYSTEM INTERPRETATION Sinus bradycardia T wave abnormality, consider anterior ischemia Abnormal ECG When compared with ECG of 17-FEB-2024 13:24, [place] interval has decreased T wave inversion now evident in Anterior leads Confirmed by Paul Guzman ([id number]) on 03/15/2024 8:36:23 AM MUSE SYSTEM 03/12/2024 2:35 PM EDT 03/15/2024 8:36 AM EDT Zak Farmer MD ECG ORDERABLES [employer] documented in this encounter Visit Diagnoses Diagnosis Coronary artery disease, unspecified vessel or lesion type, unspecified whether angina present, unspecified whether ruby or transplanted heart documented in this encounter Care Teams Tromper Relationship Specialty Start Date End Date Vanessa Christian, MAURI PCP - General Family Medicine 10/21/23 05/26/24 documented as of this encounter
--- OUTSIDE RECORDS SUMMARY | 2024-08-25 10:03 | XMS_ITS | Encounter Summary ---
Author Organization [facility] Address [facility] [place] [address] Care Team Providers Care Benzol Operator Name Role Phone Vanessa Christian Lane DOTSON Primary Care Provider [phone] Reason for Visit * Reason Comments Coronary Artery Disease Aortic Stenosis Encounter Details Date Type Department Care Team (Latest Contact Info) Description 05/27/2024 11:00 AM EDT Office Visit Cardiology at [address] [phone] Neftali Ernandez MD [facility] [place] [address] ASCVD (arteriosclerotic cardiovascular disease); Nonrheumatic aortic valve stenosis Social History Tobacco Use Types Packs/Day Years Used Date Smoking Tobacco: Former Cigarettes Smokeless Tobacco: Never Comments:Quit 15 + years ago Alcohol Use Standard Drinks/Week Comments Yes 0 (1 standard drink = 0.6 oz pur e alcohol) rare [facility] Utilities Answer Date Recorded In the past 12 months has e [employer], gas, oil, or water [employer] threatened to shut off services in your [...] disorders documented in this encounter Care Teams Benzol Operator Relationship Specialty Start Date End Date Vanessa Christian, MAURI [address] [place] [address] PCP - General Family Medicine 05/27/24 documented as of this encounter
--- OUTSIDE RECORDS SUMMARY | 2024-08-25 10:03 | XMS_ITS | Clinical Summary ---
Author Organization [facility] Address [address] [place] [address] Care Team Providers Care [employer] Ax Consultant Name Role Phone Filidayna Vanessa Sherman NP Primary Care Provider [phone] Social History Tobacco Use Types Packs/Day Years [...] 75+ series) 2034 Insurance [employer] Care Teams [employer] Ax Consultant Relationship Specialty Start Date End Date Vanessa Christian, ANTWAN [address] [place] [id number] PCP - General Family Medicine - Primary Care 10/07/23
--- OUTSIDE RECORDS SUMMARY | 2024-08-25 10:03 | XMS_ITS | Encounter Summary ---
Author Organization [facility] Address [facility] [place] [address] Care Team Providers Care Night Coordinator Name Role Phone Vanessa Christian MAURI Primary Care Provider [phone] Encounter Details Date Type Department Care Team (Latest Contact Info) Description 03/12/2024 1:30 PM EDT - 03/12/2024 11:59 PM EDT Hospital Encounter XRay at [address] [place] [address] Coronary artery disease, unspecified vessel or lesion type, unspecified whether angina present, unspecified whether [place] or transplanted heart Discharge Disposition: Home Social History Tobacco Use Types Packs/Day Years Used Date Smoking Tobacco: Former Cigarettes Smokeless Tobacco: Never Comments:Quit 15 + years ago Alcohol Use Standard Drinks/Week Comments Yes 0 (1 standard drink = 0.6 oz pur e alcohol) rare [facility] Utilities Answer Date Recorded In the past 12 months has e [place], gas, oil, or water [employer] threatened to shut off services in your [...] type, unspecified whether angina present, unspecified whether [place] or transplanted heart documented in this encounter Results * XR Chest PA & Lateral (Generic) (03/12/2024 1:42 PM EDT) WORKSTATION ID [id number] RAD Anatomical Region Laterality Modality Chest N/A [...] have questions please contact the health health careers instructor that requested your imaging first. ? Electronically signed by: Augie Sanchez MD, [facility] ([phone]), at 03/13/2024 8:28 AM Narrative 03/13/2024 8:28 AM EDT EXAMINATION: XR CHEST PA AND LATERAL (GENERIC) CLINICAL HISTORY: s/p cabg eval effusions I25.10, Atherosclerotic heart disease of [place] coronary artery without angina pectoris TECHNIQUE: PA [...] eval effusions I25.10, Atherosclerotic heart disease of [place] coronary artery withoutangina pectoris TECHNIQUE: PA and [...] who have questions please contactthe health health careers instructor that requested your imaging first. Electronically signed by: Augie Sanchez MD, [facility]([phone]), at 03/13/2024 8:28 AM Zak Farmer MD IMG DX ORDERABLES documented in this encounter Visit Diagnoses Diagnosis Coronary artery disease, unspecified vessel or lesion type, unspecified whether angina present, unspecified whether [place] or transplanted heart documented in this encounter Care Teams Night Coordinator Relationship Specialty Start Date End Date Vanessa Christian APRN PCP - General Family Medicine 10/21/23 05/26/24 documented as of this encounter
--- OUTSIDE RECORDS SUMMARY | 2024-08-25 10:04 | XMS_ITS | Encounter Summary ---
[place] [address] Care Team Providers Care Information Assurance Officer Name Role Phone Aparna Jordan MAURI Primary Care Provider [phone] Reason for Referral * Diagnostic Test (Routine) - New Request Specialty Diagnoses / Procedures Referred By Contac t Referred To Contact Cardiology Diagnoses S/P AVR Procedures Echocardiogram Transthoracic Neftali Menon PA [facility] [place] [address] [facility] [place] [address] Referral ID Status Reason Start Date Expiration Date Visits Requested Visits Authorized [id number] New Request Specialty Service Requested 02/24/2024 02/23/2025 1 1 * Consultation (Routine) - Closed Specialty Diagnoses / Procedures Referred By Contac t Referred To Contact Cardiology Diagnoses S/P AVR Hayder Graham MD [facility] [place] [address] Cardiac Rehab, [facility] [address] [place] [address] [place] [address] Referral ID Status Reason Start Date Expiration Date V isits Requested Visits Authorized [id number] Closed Consult, Test & Treat 02/24/2024 08/22/2024 36 36 * Home Health Care (Routine) - Closed Specialty Diagnoses / Procedures Referred By Sixto mendoza Referred To Contact Diagnoses S/P AVR Hayder Graham MD [facility] [place] [address] Referral ID Status Reason Start Date Expiration Date V isits Requested Visits Authorized [id number] Closed Consult, Test & Treat 02/24/2024 08/22/2024 999 [...] MD [facility] [place] [address] [facility] Referral ID Status Reason Start Date Expiration Date Visits Re quested Visits Authorized [id number] 1 1 Encounter Details Date Type Department Care Team (Latest Contact Info) Description 02/17/2024 5:43 AM EDT - 02/24/2024 11:23 AM EDT Hospital Encounter Heart and Vascular Unit Level 4 [place] [address] Hayder Graham MD [facility] [place] [address] S/P AVR (Primary Dx); Aortic valve stenosis, etiology of cardiac valve disease unspecified Discharge Disposition: Home with VNA Social History Tobacco Use Types Packs/Day Years Used Date Smoking Tobacco: Former Cigarettes Smokeless Tobacco: Never Comments:Quit 15 + years ago Alcohol Use Standard Drinks/Week Comments Yes 0 (1 standard drink = 0.6 oz pur e alcohol) rare [facility] Utilities Answer Date Recorded In [...] Patient Age: 63 y.o. Birthdate: 1960 Language: Russian Race: White Ethnicity: Not nor Admit Date: 02/17/2024 Discharge Date: 02/24/24 Attending Physician: Hayder Graham MD Follow-up Recommendations for Providers: Please continue routine management of cardiovascular risk factors including blood pressure, lipids,glucose, etc. Please note any changes to medications. Patient to follow up with PCP, Aparna Jordan APRN, in 1-2 weeks. Patient to follow up with Caustic Preparer, Neftali Ernandez MD , in 2 weeks. Patient to follow up with Cardiac Surgeon, Dr. Hayder Graham, with a chest x-ray, EKG, and Echo. 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 Past Surgical History: Procedure Laterality Date PRO CABG, ARTERIAL, SINGLE N/A 02/17/2024 @CABG, USING ARTERIAL GRAFT;SINGLE ARTERIAL GRAFT (WRVU 33.75) performed by Hayder Graham MD at [facility] MAIN OR PRO CABG, ARTERY-VEIN, TWO N/A 02/17/2024 @CABG, TWO VENOUS GRAFTS & ARTERIAL GRAFT (WRVU 7.93) performed by Hayder Graham MD at [facility] MAIN OR PRO ENDOSCOPY W/VIDEO-ASST VEIN HARVEST, CABG Left 02/17/2024 ENDOSCOPIC HARVEST VEIN(S) FOR CABG (WRVU 0.31) performed by Hayder Graham MD at [facility] MAIN OR PRO REPLACEMENT PROSTHETIC AORTIC VALVE OPEN W CARDIOPULMONARY BYPASS HOMOGRF/STENT N/A 02/17/2024 @REPLACE AORTIC VALVE, OPEN, W\CPB, W\PROSTHETIC VALVE (WRVU 41.32) performed by Hayder Graham MD at [facility] MAIN OR Prior To Admission [...] insufficiency. He has glaucoma. He used to [employer] until about 15 years ago. He has undergone prior herniorrhaphy. 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 Major Procedures/Operations: 02/17/24 s/p avr/cabgx3 CABG x 3 JOSE->LAD SVG->dRCA SVG->OM1 EVH from LLE AVR with a 23 mm Inspiris Bioprosthesis Hospital Course: Karlos Garcia was admitted to [facility] on 02/17/2024 via the Same Day Program. He was brought to the operating room where Dr. Hayder Graham performed a tissue aortic valve replacement and coronary artery bypass grafting. He tolerated the procedure and was brought tot Cardiovascular Intensive Care Unit for recovery. He [...] Hayder Graham and/or the Cardiac Surgery Physician Coal Cutting Machine Operator Team may be reached at [...] Please refer to the card with the [place] [employer] Guidelines for more information. [...] Dr. Hayder Graham. You may use a [place] Track or treadmill but avoid any pulling [...] friends, go to a movie, go to confucianism, etc. Heavy activities: No hunting, skiing, jogging, [...] should resume a low fat, low cholesterol, [place] Heart Association Diet. Driving: No driving [...] while being managed by your PCP and/or Caustic Preparer. For future medication refills, please refer to your PCP and/or Caustic Preparer after your discharge from our service. Thank you REMOVE CHEST TUBE SUTURES ON OR AFTER 03/02/24 Home oxygen therapy: N/A Follow up appointments: You should follow up with your PCP, Aparna Jordan APRN, in 1-2 weeks. Our office will schedule an appointment with your Caustic Preparer, Neftali Ernandez MD , in 2 weeks. [...] Future Orders Complete By Expires Echocardiogram Transthoracic [55600 CPT(R)] 03/26/2024 09/25/2024 Process Instructions: Scheduling Instructions: Questions: Where will study be performed?: [facility] Does the patient have Congenital Heart Disease?: Does patient require sedation?: Sedation rationale: XR Chest PA & Lateral (Generic) [73526 92367 Custom] 03/26/2024 09/25/2024 Process Instructions: Scheduling Instructions: Questions: Portable exam?: Reason for exam and clinical history: s/p avr/cabg Clinical information / jerome questions for radiologist: Stat read required?: Date of injury if applicable: Requested Time: Where will study be performed?: [facility] Radiology Referral to Cardiac Rehab [VGD429 Custom] As directed Process Instructions: If no [...] to Home Health. [address] Phone Number: Date of : 1960 Inpatient DOCUMENTATION FOR VNA SERVICES (INCLUDING THOSE PATIENTS WITH MEDICARE COVERAGE REQUIRING HOME VNA SERVICES AND/OR HOSPICE SERVICES) PATIENT'S LOCATION: Karlos Garcia [address] [place] [phone] Brush Polisher's Name: self/family In discussion with the attending physician, it is certified that this patient is under their care and that they, or a Nurse Practitioner, or Physician Coal Cutting Machine Operator who is working directly with [...] for services as follows: HOME HEALTH AGENCY: [facility]. [address] [place] [address] RN orders: Cardiopulmonary assessment, incisional assessment, assess [...] issues please call the Cardiology Office at [phone] FOR MEDICARE ONLY: (please delete this section [...] APRN [address] / [place] [address] . All VNA agencies which cover the area of patient's residence have been reviewed, either verbally or in writing, and patient/family have chosen the home health care agency noted. Questions: Disciplines Requested: Nursing Physical Therapy Arrangements for VNA/home care: As above. Signed: NEFTALI MENON PA-C [facility] Section of Cardiac Surgery [facility] [place] [address] FAX [phone] Date: 02/24/2024 CC: Aparna Jordan, MAURI Jordan, Aparna Sherman APRN [address] [place] [address] documented in this encounter Discharge Instructions * [...] Hayder Graham and/or the Cardiac Surgery Physician Coal Cutting Machine Operator Team may be reached at [...] Please refer to the card with the [place] Heart [employer] Guidelines for more information. [...] Dr. Hayder Graham. You may use a [place] Track or treadmill but avoid any pulling [...] friends, go to a movie, go to confucianism, etc. Heavy activities: No hunting, skiing, jogging, [...] should resume a low fat, low cholesterol, [place] Heart [employer] Diet. Driving: No driving [...] while being managed by your PCP and/or Caustic Preparer. For future medication refills, please refer to your PCP and/or Caustic Preparer after your discharge from our service. Thank you REMOVE CHEST TUBE SUTURES ON OR AFTER 03/02/24 Home oxygen therapy: N/A Follow up appointments: You should follow up with your PCP, Aparna Jordan APRN, in 1-2 weeks. Our office will schedule an appointment with your Caustic Preparer, Nfetali Ernandez MD , in 2 weeks. You [...] 0600 and on the weekends please page [phone]. * Eric Barahona PA - 02/23/2024 9:27 [...] on the weekends please page [phone]. * Tiffanie Owens PTA - 02/22/2024 2:48 [...] for 10 days. 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 He works Precautions/Special Considerations: STERNAL [...] LRAD and supervision Time IN / OUT: 4326-9740 Total Time: 30 minutes; TEFx2 Tiffanie Owens Pager: [phone] Physical Therapy Inpatient Rehabilitation Department * Romeo [...] 0600 and on the weekends please page [phone]. * Kelley Hinson, MANAGER ENVIRONMENTAL SERVICES - 02/21/2024 10:15 AM EDT Physical Therapy [...] for 10 days. 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 He works Precautions/Special Considerations: STERNAL [...] LRAD and supervision Time IN / OUT: 8570-5654 Total Time: 25 minutes; TEF 2 Kelley Hinson MANAGER ENVIRONMENTAL SERVICES Pager: [phone] Physical Therapy Inpatient Rehabilitation Department * Louisa [...] 0600 and on the weekends please page [phone]. * Kelley Hinson PTA - 02/20/2024 3:32 PM EDT 02/20/24 6295 Evaluation & Treatment Document Type contact Total Minutes, Physical Therapy 0 Comment, Session Not Performed Checked in w/ pt this PM for ongoing PT services, pt politely declined, stating he had been dealing w/ nausea all day, made plan to see him tomorrow morning, will f/u at that time Kelley Hinson PTA Pager: [phone] Physical Therapy Inpatient Rehab Department * Louisa [...] 0600 and on the weekends please page [phone]. * Maris Benavides, PT - 02/19/2024 11:22 [...] for 10 days. 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 He works. Precautions/Special Considerations: STERNAL [...] CDI. Musculoskeletal: ROM: WFL Strength: Danielle HOBBS's 4/5 Bed Mobility: Supine ->Sit: min assist [...] outlined inthis evaluation. MARIS BENAVIDES, PT Pager: [phone] Physical Therapy Inpatient Rehabilitation Department Time IN / OUT: [phone] Total Time: 38 (eval) minutes; * Antonio [...] 0600 and on the weekends please page [phone]. * Minnie Begum PA - 02/18/2024 8:25 [...] 0600 and on the weekends please page [phone]. * Kim Ha RCP - 02/17/2024 2:25 [...] plan since last visit. Hayder Graham MD [phone] Source Note - Hayder Graham MD - [...] insufficiency. He has glaucoma. He used to [employer] until about 15 years ago. He [...] given written informed consent. Hayder Graham MD [phone] * Hayder Graham MD - 02/17/2024 7:00 [...] given written informed consent. Hayder Graham MD [phone] documented in this encounter Miscellaneous Notes * [...] information for follow-up Home Health & Hospice, [address] [place] [address] Cardiac Rehab, [facility] [address] [place] [address] Transportation: family or friend will provide Functional status prior to admission: Independent Home Environment: Others in the home: alone. Current Living Arrangements: home/apartment/condo. Accessibility Concerns:a few steps to enter 1 floor home. Current Functional Ability: Assistive Person and Equipment DME used at home: none DME Needed at Discharge: N/A Patient is insured through: Primary Insurance: [employer] Payor: [facility] / Plan: [facility] PPO / Product Type: *No [...] pain managed with scheduled Tylenol. Worked with [employer]. Ambulated in the roque multiple times during [...] anticipated Patient is insured through: Primary Insurance: [employer] Payor: [facility] / Plan: [facility] PPO / Product Type: *No Product type* / Secondary Insurance: N/A Last Physical Therapy Recommendation: home with home health (Str coming to stay for a week or two upon d/c) with to be determined (owns rolling walker, shower seat) Plan for discharge is: Home w/ Services Outpatient Agency/Support Group Needs: Homecare agency Home Health Services: Physical Therapy, Registered Nurse Agency Referrals: [facility] [address] [address] Transportation: family or friend will provide Barriers to discharge: Discharge planning Plan going forward: Service Care Management will continue to follow and assist with discharge planning and coordination of care as indicated. 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 (Only good for 180 days) Any patient receiving care in [place] must abide by [place] law. The hierarchy for surrogate decision making [...] The agent with financial power of staff genetic counselor or a conservator appointed in accordance with [...] In the past 12 months has the Intent, gas, oil, or water [place] threatened to shut off services in your [...] as: [address] [facility] [address] Physical address: [address] [facility], [address] Social & Family Supports: All names listed [...] Information: none noted Health/Prescription Coverage: Primary Insurance: [facility] Payor: [facility] / Plan: [facility] PPO / Product Type: *No Product type* / Secondary Insurance: N/A ; Prescription Coverage: Yes Preferred Pharmacy: [id number] AT [facility] & [address] [address] Status: Patient is a : No Primary Care Provider confirmed: Aparna Jordan, WATER TEAM LEADER [phone] Patient/Caregiver Goals of Treatment: dc to home Potential Needs for Transition of Care: home health care Agency Referrals: I have met with the patient to: discuss discharge planning needs. provide the [facility], Office of Care Management letter from the Emissions Inspector pertaining to rehab referrals. provide a letter describing our affiliations within the [facility] and educate about their right to choose where referrals are sent. provide a list of Home Health Agencies / Durable Medical Equipment vendors which serve their preferred geographic area. provided patient with [facility] Star Quality Rating handout. They have requested referrals to: [facility] Care Agency [facility]. [address] [place] [address] Note routed to a Crane Hoist Or Lift Operator who will communicate referrals to facilities [...] Reina Greene RN CM, BSN, CMGT- Ext [phone] * Plan of Care - Binta Trinidad [...] Brief Operative Note Patient Name: Karlos Garcia DOB: [id number] MR#: [id number] Case Date: 02/17/2024 Surgeon: Surgeon(s) and Role: * Hayder Graham MD - Primary * Neftali Menon PA - Physician Coal Cutting Machine Operator Preoperative diagnosis: CAD Postoperative diagnosis: [...] [facility] Oper[facility] Note Patient Name: Karlos Garcia : [id number] MR#: [id number] Case Date: 02/17/2024 Surgeon: Surgeons and Role: * Hayder Graham MD - Primary * Neftali Menon PA - Physician Coal Cutting Machine Operator Preoperative diagnosis: CAD Postoperative diagnosis: [...] mL Drains: Mediastinal and Left pleural Disposition: [facility] Procedure Description: The patient [...] Aortic Valve Open W Cardiopulmonary Bypass Homogrf/Stent (63295) Yes 02/17/2024 7:28 AM EDT CAD Cabg, Artery-Vein, Two (77092) Yes 02/17/2024 7:28 AM EDT CAD Cabg, Arterial, Single (93880) Yes 02/17/2024 7:28 AM EDT CAD Endoscopy W/Video-Asst Vein [place], Cabg (28954) Yes 02/17/2024 7:28 AM EDT CAD POCT [...] ORDERABLE S [facility] [place] [address] * (ABNORMAL) Basic Metabolic Panel (non-fasting) (02/23/2024 [...] CHEMISTRY ORDERABLES [facility] [place] [address] * Potassium (02/22/2024 4:30 AM EDT) [facility] Signature Potassium 3.5 3.5 - 5.0 mmol/L [facility] [...] ORDERABLE S [facility] [place] [address] * (ABNORMAL) Basic Metabolic Panel (non-fasting) (02/21/2024 [...] Carpio MD CHEMISTRY ORDERABLES Performing Organization Address City/[facility]/ZIP Co de Phone Number [facility] [place] [address] * Lactate, whole blood, send to lab ([facility]) (02/21/2024 9:45 AM EDT) [facility] Lactate WB 2.0 0.5 - 2.2 mmol/L [facility] Blood 02/21/2024 9:45 AM EDT 02/21/2024 9:52 AM EDT Narrative Resulting Agency Comment Spec In Lab Hayder Graham MD CHEMISTRY ORDERABLE S Performing Organization Address [facility] Co de Phone Number [facility] [place] [address] * (ABNORMAL) Hepatic Function Panel (02/21/2024 9:45 AM EDT) [facility] Protein, Total 5.7(L) 6.1 - 8.0 g/dL [...] MD CHEMISTRY ORDERABLE S Performing Organization Address City/[facility]/ZIP Co de Phone Number [facility] [place] [address] * Lipase (02/21/2024 9:45 AM EDT) [facility] Lipase 56 0 - 60 unit/L [facility] Blood 02/21/2024 9:45 AM EDT 02/21/2024 9:52 AM EDT Narrative Resulting Agency Comment Spec In Lab Hayder Graham MD CHEMISTRY ORDERABLE S Performing Organization Address [facility] Co de Phone Number [facility] [place] [address] * Amylase (02/21/2024 9:45 AM EDT) Amylase 69 28 - 100 unit/L [facility] Blood 02/21/2024 9:45 AM EDT 02/21/2024 9:52 AM EDT Narrative Resulting Agency Comment Spec In Lab Hayder Graham MD CHEMISTRY ORDERABLE S Performing Organization Address [facility] de Phone Number [facility] [place] [address] * Potassium (02/21/2024 3:08 AM EDT) [facility] Potassium 3.8 3.5 - 5.0 mmol/L [facility] [...] CHEMISTRY ORDERABLE S Performing Organization Address [facility] Co de Phone Number [facility] [place] [address] * XR Chest PA & Lateral (Generic) (02/20/2024 10:19 AM EDT) WORKSTATION ID [id number] DH RAD Anatomical Region Laterality Modality Chest N/A Digital Radiogra phy Impressions 02/20/2024 1:11 PM EDT Small pleural effusions. No pneumothorax Thank you for letting us participate in the care of this patient. ??If you are a health care provider and have any questions regarding this report, please contact the number below. ??For patients who have questions please contact the health physician locums urgent care that requested your imaging first. ? Electronically signed by: Rogerio Cruz MD, [facility] ??([phone]), at 02/20/2024 1:11 PM Narrative 02/20/2024 1:11 PM EDT EXAMINATION: XR CHEST PA AND LATERAL (GENERIC) CLINICAL HISTORY: s/p AVR/CABGx3 TECHNIQUE: PA and lateral views of the chest COMPARISON: 02/17/2024 FINDINGS: Support devices: Interval removal of [place]-K[place] catheter, endotracheal tube and mediastinal chest tubes The cardiac silhouette is stable status post median sternotomy, CABG and aortic valve replacement. There are small pleural effusions. No pneumothorax. Procedure Note Rogerio Cruz MD - 02/20/2024 EXAMINATION: XR CHEST PA AND LATERAL (GENERIC) CLINICAL HISTORY: s/p AVR/CABGx3 TECHNIQUE: PA and lateral views of the chest COMPARISON: 02/17/2024 FINDINGS: Support devices: Interval removal of [place]-Ka[place] catheter, endotracheal tubeand mediastinal chest tubes The [...] who have questions please contactthe health physician locums urgent care that requested your imaging first. Hayder Graham MD IMG DX ORDERABLES * Scan, Peripheral Blood (02/20/2024 4:23 AM EDT) Pathologist [facility] Plat estimate Decreased [facility] RBC Morphology Normal [facility] Blood 02/20/2024 4:23 AM EDT 02/20/2024 4:42 AM EDT Narrative Resulting Agency Comment Spec In Lab Minnie FRENCH HEMATOLOGY CECILIO ALEMAN [facility] [place] [address] * (ABNORMAL) Differential, Automated (02/20/2024 4:23 AM EDT) [facility] Neutrophil % 81.7 % [facility] Neutrophil Absolute 10.37(H) 1.70 - 6.10 x10(3)/mc L [facility] Lymph % 7.4 % [facility] Lymphocytes Abs 0.9 0.9 - 3.2 x10(3)/mc L [facility] Monocyte % 9.7 % [facility] Monocyte Abs 1.2(H) 0.3 - 0.9 x10(3)/mc L [facility] Eos % 0.1 % [facility] Eosinophils Abs 0.0 0.0 - 0.4 x10(3)/mc L [facility] Basophil % 0.2 % [facility] [...] CECILIO ALEMAN [facility] [place] [address] * (ABNORMAL) Hemogram (02/20/2024 4:23 AM EDT) [...] Comment Spec In Lab Minnie FRENCH HEMATOLOGY CECLIIO ALEMAN [facility] [place] [address] * (ABNORMAL) Basic Metabolic Panel (non-fasting) (02/20/2024 [...] CHEMISTRY ORDERABLE S Performing Organization Address [facility] Co de Phone Number [facility] [place] [address] * Potassium (02/19/2024 3:57 AM EDT) Potassium [...] CHEMISTRY ORDERABLE S Performing Organization Address [facility] Co de Phone Number [facility] [place] [address] * POCT Glucose (02/18/2024 8:24 AM EDT) Glucose, POC 157 65 - 199 mg/dL [facility] Comment: Supplemental ranges: <140 mg/dL before meals <180 mg/dL all other times of the day Blood 02/18/2024 8:24 AM EDT 02/18/2024 8:24 AM EDT Hayder Graham MD POINT OF CARE TEST ORDERABLES [facility] [place] [address] * Scan, Peripheral Blood (02/18/2024 1:40 AM EDT) Pathologist [facility] Plat estimate Decreased [facility] RBC Morphology Normal [facility] Blood 02/18/2024 1:40 AM EDT 02/18/2024 1:56 AM EDT Narrative Resulting Agency Comment Spec In Lab Neftali FRENCH HEMATOLOGY ORDER OLE Performing Organization Address City/[facility]/ZIP Co de Phone Number [facility] [place] [address] * (ABNORMAL) Differential, Automated (02/18/2024 1:40 AM EDT) [facility] Neutrophil % 87.1 % [facility] Neutrophil Absolute 15.03(H) 1.70 - 6.10 x10(3)/mc L [facility] Lymph % 3.0 % [facility] Lymphocytes Abs 0.5(L) 0.9 - 3.2 x10(3)/mc L [facility] Monocyte % 9.1 % [facility] Monocyte Abs 1.6(H) 0.3 - 0.9 x10(3)/mc L [facility] Eos % 0.0 % [facility] Eosinophils Abs 0.0 0.0 - 0.4 x10(3)/mc L [facility] Basophil % 0.2 % [facility] [...] ORDER OLE [facility] [place] [address] * (ABNORMAL) Hemogram (02/18/2024 1:40 AM EDT) White Blood Cell 17.2(H) 4.0 - 9.5 x10(3)/ L [facility] Red Blood Cell 4.71 4.58 - 5.54 x10(6)/ L [facility] Hemoglobin [...] MEDICAL CENTER [facility] NRBC% auto 0.0 % [facility] NRBC Absolute 0.000 0.000 - 0.000 x10(3)/ L [facility] Blood 02/18/2024 1:40 AM EDT 02/18/2024 1:56 AM EDT Narrative Resulting Agency Comment Spec In Lab Neftali FRENCH HEMATOLOGY ORDER OLE [facility] [place] [address] * (ABNORMAL) Basic Metabolic Panel (non-fasting) (02/18/2024 [...] MD CHEMISTRY ORDERABLE S Performing Organization Address City/[facility]/ZIP Co de Phone Number [facility] [place] [address] * (ABNORMAL) Troponin (02/18/2024 1:40 AM EDT) [...] [facility] Test Catalog Reference: Fourth [place] Definition of Myocardial Infarction. Journal of the [place] [employer] 2018;72:8726-2897 Blood 02/18/2024 1:40 AM EDT 02/18/2024 1:56 AM EDT Narrative Resulting Agency Comment Spec In Lab Hayder Graham MD CHEMISTRY ORDERABLE S [facility] [place] [address] * POCT Glucose (02/17/2024 8:13 PM EDT) Glucose, POC 142 65 - 199 mg/dL [facility] Comment: Supplemental ranges: <140 mg/dL before meals <180 mg/dL all other times of the day Blood 02/17/2024 8:13 PM EDT 02/17/2024 8:13 PM EDT Hayder Graham MD POINT OF CARE TEST ORDERABLES Performing Organization Address [facility] Co de Phone Number [facility] [place] [address] * POCT Glucose (02/17/2024 5:42 PM EDT) Glucose, POC 160 65 - 199 mg/dL [facility] Comment: Supplemental ranges: <140 mg/dL before meals <180 mg/dL all other times of the day Blood 02/17/2024 5:42 PM EDT 02/17/2024 5:42 PM EDT Hayder Graham MD POINT OF CARE TEST ORDERABLES Performing Organization Address [facility]/ZIP Co de Phone Number [facility] [place] [address] * Hemoglobin (02/17/2024 5:42 PM EDT) Hemoglobin 13.7 13.7 - 16.5 g/dL [facility] Blood 02/17/2024 5:42 PM EDT 02/17/2024 6:10 PM EDT Narrative Resulting Agency Comment Spec In Lab Hayder Graham MD HEMATOLOGY ORDERABL ES [facility] [place] [address] * Potassium (02/17/2024 5:42 PM EDT) Potassium [...] City/State/[facility] Co de Phone Number [facility] [place] [address] * (ABNORMAL) BLOOD GAS 2 ARTERIAL (02/17/2024 [...] [facility] PF Ratio Art 195 [facility] Blood 02/17/2024 4:18 PM EDT 02/17/2024 4:18 PM EDT Hayder Graham MD POINT OF CARE TEST ORDERABLES [facility] [place] [address] * XR Chest One View (02/17/2024 1:44 PM EDT) [employer] WORKSTATION ID [id number] DH RAD Anatomical Region Laterality Modality Chest N/A Digital Radiogra phy Impressions 02/17/2024 2:12 PM EDT 1. ??No definite pleural fluid collection or pneumothorax. 2. ??Right IJ [place]-Kaila catheter tip terminates in a descending branch [...] have questions please contact the health physician locums urgent care that requested your imaging first. ? Electronically signed by: Denzel Hankins MD, [facility] ??([phone]), at 02/17/2024 2:12 PM Narrative 02/17/2024 2:12 PM EDT EXAMINATION: XR CHEST ONE VIEW CLINICAL HISTORY: s/p avr/cabg eval effusions TECHNIQUE: 1 view of the chest COMPARISON: Chest x-ray 01/09/2024, chest CT 02/03/2024 FINDINGS: ET tube tip terminates 5.2 cm above the carlos. Right IJ [place]-Kaila catheter tip terminates in a descending branch [...] 5.2 cm above the carlos. Right IJ [place]-Ganzcatheter tip terminates in a descending branch of [...] fluid collection or pneumothorax. 2. Right IJ [place]-Kaila catheter tip terminates in a descending branch ofthe right pulmonary artery. Suggest catheter retraction. 3. Additional support lines and tubes as above. Thank you for letting us participate in the care of this patient. If youare a health care provider and have any questions regarding this report,please contact the number below. For patients who have questions please contactthe health physician locums urgent care that requested your imaging first. Electronically signed by: Denzel Hankins MD, [facility]([phone]), at 02/17/2024 2:12 PM Hayder Graham MD [...] [facility] PF Ratio Art 320 [facility] Blood 02/17/2024 1:31 PM EDT 02/17/2024 1:31 PM EDT Hayder Graham MD POINT OF CARE TEST ORDERABLES [facility] [place] [address] * (ABNORMAL) Coox2 (02/17/2024 1:21 PM EDT) [...] TEST ORDERABLES [facility] [place] [address] * (ABNORMAL) BLOOD GAS 2 ARTERIAL (02/17/2024 [...] CARE TEST ORDERABLES Performing Organization Address [facility]/ZIP Co de Phone Number [facility] [place] [address] * (ABNORMAL) Fibrinogen (02/17/2024 12:10 PM EDT) [...] MD HEMATOLOGY ORDERABLE S Performing Organization Address City/[facility]/ZIP Co de Phone Number [facility] [place] [address] * (ABNORMAL) Thrombin time (02/17/2024 12:10 PM [...] HEMATOLOGY ORDERABLE S Performing Organization Address [facility] Co de Phone Number [facility] [place] [address] * APTT (02/17/2024 12:10 PM EDT) Partial [...] HEMATOLOGY ORDERABLE S Performing Organization Address [facility] Co de Phone Number [facility] [place] [address] * (ABNORMAL) Prothrombin Time (02/17/2024 12:10 PM [...] S [facility] [place] [address] * (ABNORMAL) Hemogram (02/17/2024 12:10 PM EDT) [...] RDW Standard Deviation 40.2 36.0 - 45.0 [facility] RDW coefficient of variation 12.8 11.4 - 13.8 % [facility] Mean Platelet Volume 9.5 7.6 - 12.9 fL [facility] NRBC% auto 0.0 % [facility] NRBC Absolute 0.000 0.000 - 0.000 x10(3)/mc L [facility] Blood 02/17/2024 12:1 0 PM EDT 02/17/2024 12:19 PM EDT Narrative Resulting Agency Comment Spec In Lab Tara York MD HEMATOLOGY ORDERABLE S [facility] [place] [address] * (ABNORMAL) BLOOD GAS 2 ARTERIAL (02/17/2024 [...] [facility] Comment: Noted by electrical instrumentation technician. Please note: Patients with WBC >100,000 [...] TEST ORDERABLES [facility] [place] [address] * (ABNORMAL) BLOOD GAS 2 ARTERIAL (02/17/2024 [...] [facility] Comment: Noted by electrical instrumentation technician. Please note: Patients with WBC >100,000 [...] CARE TEST ORDERABLES Performing Organization Address [facility]/ZIP Co de Phone Number [facility] [place] [address] * (ABNORMAL) Hemoglobin and Hematocrit, blood (02/17/2024 [...] MD HEMATOLOGY ORDERABL ES Performing Organization Address City/[facility]/ZIP [place] [address] * (ABNORMAL) Platelet count (02/17/2024 11:04 AM EDT) Platelet 106(L) 145 - 357 x10(3)/mc L [facility] Immature Plt % 1.6 0.0 - 7.4 % [facility] Comment: Limitation of the Immature Platelet Fraction (IPF)-May be less reliable when the platelet count is less than 43j671/uL due to statistical imprecision. The IPF value [...] in a decreased state of production. References: [employer] The Clinical Value of the Immature Platelet Fraction (IPF) in Cell Recovery Document Number 10-1143 03/2011 [employer] The Role of the Immature Platelet Fraction (IPF) in the Differential Diagnosis of Thrombocytopenia, Document MKT-[id number] V002/15/14 Blood 02/17/2024 11:0 4 AM EDT 02/17/2024 11:12 AM EDT Narrative Resulting Agency Comment Spec In Lab Hayder Graham MD HEMATOLOGY ORDERABL ES Performing Organization Address City/State/[facility] Co de Phone Number [facility] [place] [address] * (ABNORMAL) Fibrinogen (02/17/2024 11:04 AM EDT) [...] ORDERABL ES [facility] [place] [address] * (ABNORMAL) BLOOD GAS 2 ARTERIAL (02/17/2024 [...] TEST ORDERABLES [facility] [place] [address] * (ABNORMAL) BLOOD GAS 2 ARTERIAL (02/17/2024 [...] TEST ORDERABLES [facility] [place] [address] * Surgical Pathology Report (02/17/2024 10:01 AM EDT) Final Diagnosis [id number] ? Location: [facility]; [facility]; The signing pathologist has (i) examined the relevant preparation(s) for the specimen(s) and (ii) rendered or confirmed the diagnosis(es). . ?Surgical Pathology DIAGNOSIS Aortic valve leaflets, excision: Valve leaflets with myxoid degeneration, nodular fibrosis and dystrophic calcifications. Electronically signed by: ?Livier Montoya MD Verified: ??02/24/2024 13:49 ??Pathologist Performed at: ??-[facility] Dept. of [place]ology, [place] [address] Emissions Inspector: Job Brewer MD, FCAP, ??IA Certificate: [id number] SPECIMEN(S) SUBMITTED A - Aortic Valve Leaflets, [...] Sections Processing Blocks submitted for decalcification: A1. Cosmetology Instructor sections in 1 cassette labeled A1. ??ajw 02/24/2024 1:49 PM EDT [facility] AORTIC STRUCTURE / Unknown 02/17/2024 10:01 AM EDT 02/17/2024 10:01 AM EDT Hayder Graham MD PATHOLOGY/CYTOLOGY ORDERABLES [facility] [place] [address] * Specimen to Pathology (02/17/2024 10:01 AM EDT) AP Specimen 02/17/2024 10:0 1 AM EDT 02/17/2024 10:01 AM EDT Narrative [facility] - 02/17/2024 10:01 AM EDT Specimen requisition ordered. ??Separate Pathology report to follow Hayder Graham MD PATHOLOGY/CYTOLOGY ORDERABLES Performing Organization Address City/[facility]/ZIP Co de Phone Number [facility] [place] [address] * (ABNORMAL) BLOOD GAS 2 ARTERIAL (02/17/2024 [...] TEST ORDERABLES [facility] [place] [address] * (ABNORMAL) BLOOD GAS 2 VENOUS (02/17/2024 9:34 AM EDT) pH, Venous 7.22(Criti marquez) 7.32 - 7.42 [facility] Comment:Noted by electrical instrumentation technician. PCO2, Venous 43 41 - 51 mmHg [facility] Comment:Noted by electrical instrumentation technician. PO2, Venous 57(H) 25 - 40 mmHg [facility] Comment:Noted by electrical instrumentation technician. Bicarbonate, Venous 17.1 mmol/L [facility] Comment:Noted by electrical instrumentation technician. Base Excess, Venous -10.6 mmol/L [facility] Comment:Noted by electrical instrumentation technician. Hgb Blood Gas 11.2(L) 13.7 - 16.5 g/dL [facility] Comment:Noted by electrical instrumentation technician. Oxyhemoglobin, Venous 86.5 % [facility] Comment:Noted by electrical instrumentation technician. Carboxyhemoglob in, Venous 0.3 % [facility] Comment: Noted by electrical instrumentation technician. Nonsmokers: 0.5-1.5% COHB Smokers: Variable, but usually less than 10% Toxic: 20-30% COHB Lethal: Greater than 60% COHB Methemoglobin, Venous 0.0 <=1.5 % [facility] Comment:Noted by electrical instrumentation technician. Na Whole Blood 156(H) 135 - 145 mmol/L [facility] Comment:Noted by electrical instrumentation technician. K Whole Blood 5.5(H) 3.5 - 5.0 mmol/L [facility] Comment: Noted by electrical instrumentation technician. Please note: Patients with WBC >100,000 may have falsely elevated Potassium levels. Contact the Clinical Chemistry Laboratory if there are any questions. ICa Whole Blood 1.03(L) 1.15 - 1.33 mmol/L [facility] Comment: Noted by electrical instrumentation technician. Note: ??Total bilirubin higher than 20 mg/dL may lead to falsely low ionized calcium. CL Whole Blood 100 98 - 107 mmol/L [facility] Comment:Noted by electrical instrumentation technician. Gluc Whole Bld 132 65 - 199 mg/dL [facility] Comment: Noted by electrical instrumentation technician. Diabetes: >=200 mg/dL plus symptoms Lactate WB 1.0 0.5 - 2.2 mmol/L [facility] Comment:Noted by electrical instrumentation technician. Blood Gas Source Venous [facility] Blood 02/17/2024 9:34 AM EDT 02/17/2024 9:34 AM EDT Hayder Graham MD POINT OF CARE TEST ORDERABLES [facility] [place] [address] * (ABNORMAL) BLOOD GAS 2 ARTERIAL (02/17/2024 [...] CARE TEST ORDERABLES Performing Organization Address [facility] Co de Phone Number [facility] [place] [address] * POCT Glucose (02/17/2024 6:38 AM EDT) Glucose, POC 98 65 - 199 mg/dL [facility] Comment: Supplemental ranges: <140 mg/dL before meals <180 mg/dL all other times of the day Blood 02/17/2024 6:38 AM EDT 02/17/2024 6:38 AM EDT Hayder Graham MD POINT OF CARE TEST ORDERABLES Performing Organization Address [facility] de Phone Number [facility] [place] [address] * Transesophageal Echo/OR (02/17/2024 6:33 AM EDT) [...] [facility]-operative [facility] [...] Use in-line filter. Warning Vesicant/Irritant Medication New 02/18/2024 5:24 PM EDT 1 mg/min 33.3 [...] dose on Sat02/17/24 at 1400, Until Discontinued, [place] teeth and / or gums. Scan the CHG vial in the MU[facility] Q-Care Oral Care Kit from floor stock. Ventilator-associated pneumonia prophylaxis For use in ICU/Critical care locations ONLY. Obtain kit from Floor Stock location. Scan CHG vial in the [facility] Q-Care Oral Care Kit, Routine Given 02/17/2024 [...] at 50% of previous rate. Call household refrigeration mechanic if goal not achieved at maximum [...] PHENYLephrine and/or vasopressin ineffective. Call pager # [phone] if initiated. Titrate to keep systolic blood [...] L/min/M2. Maximum volume 2 L. Call household refrigeration mechanic for additional fluid orders: pager #[phone]. Rate/Dose Verify 02/18/2024 8:00 AM EDT 1 mL/hr 1 mL/hr Rate/Dose Verify 02/18/2024 6:00 AM EDT 1 mL/hr 1 mL/hr Rate/Dose Verify 02/18/2024 4:00 AM EDT 1 mL/hr 1 mL/hr sodium chloride 0.9% infusion 10-30 mL/hr, Intravenous, DAILY PRN, Starting on Sat02/17/24 at 1307, Until Sat02/18/24 at 0835, Side port TKO rate, per [facility] nursing protocol. Rate/Dose Verify [...] Merrill, COLBY)2324 (Given - Provider: Otis Crook, COLYB) 0430 (Given - Provider: Otis Crook, COLBY) [...] Discontinued, Routine 0821 (Given - Provider: Reilly Vicnent RN) atorvastatin (Lipitor) tablet 10 mg 10 [...] Ingrid Menjivar, COLBY)2101 (Given - Provider: Polo Britton, COLBY) Linked Groups Order Group 1: acetaminophen (Ofirmev) [...] Routine documented in this encounter Care Teams Information Assurance Officer Relationship Specialty Start Date End Date Aparna Jordan APRN PCP - General Family Medicine 10/21/23 05/26/24 documented as of this encounter
--- OUTSIDE RECORDS SUMMARY | 2024-08-25 10:04 | XMS_ITS | Encounter Summary ---
Author Organization [facility] Address [facility] [place] [address] Care Team Providers Care Captain Cannery Tender Name Role Phone Gino Vanessa Lane DOTSON Primary Care Provider [phone] Encounter Details Date Type Department Care Team (Late st Contact Info) Description 02/24/2024 Orders Only Cardiac Surgery [facility] [place] [id number] Trudi Lester APRN [facility] [place] [address] Social History Tobacco Use Types Packs/Day Years Used Date Smoking Tobacco: Former Cigarettes Smokeless Tobacco: Never Comments:Quit 15 + years ago Alcohol Use Standard Drinks/Week Comments Yes 0 (1 standard drink = 0.6 oz pur e alcohol) rare [facility] Utilities Answer Date Recorded In the past 12 months has e Buy buy tea, gas, oil, or water [employer] [employer] threatened to shut off services in [...] on filedocumented in this encounter Care Teams Captain Cannery Tender Relationship Specialty Start Date End Date Vanessa Christian APRN PCP - General Family Medicine 10/21/23 05/26/24 documented as of this encounter
--- OUTSIDE RECORDS SUMMARY | 2024-08-25 10:04 | XMS_ITS | Encounter Summary ---
Author Organization [facility] [place] [address] Care Team Providers Care Envelope Press Operator Name Role Phone Aparna Jordan MAURI Primary Care Provider [phone] Reason for Visit * Auth/Cert (Routine) Specialty [...] MD [facility] [place] [address] [facility] Referral ID Status Reason Start Date Expiration Date Visits Re quested Visits Authorized [id number] 1 1 Encounter Details Date Type Department Care Team (Late st Contact Info) Description 02/17/2024 7:30 AM EDT - 02/17/2024 1:26 PM EDT Surgery [place] [id number] Hayder Graham MD [facility] [place] [address] ENDOSCOPIC HARVEST VEIN(S) FOR CABG (WRVU 0.31) Social History Tobacco Use Types Packs/Day Years Used Date Smoking Tobacco: Former Cigarettes Smokeless Tobacco: Never Comments:Quit 15 + years ago Alcohol Use Standard Drinks/Week Comments Yes 0 (1 standard drink = 0.6 oz pur e alcohol) rare [facility] Utilities Answer Date Recorded In the [...] Patient Age: 63 y.o. Birthdate: 1960 Language: Croatian Race: White Ethnicity: Not nor Admit Date: 02/17/2024 Discharge Date: 02/24/24 Attending Physician: Hayder Graham MD Follow-up Recommendations for Providers: Please continue routine management of cardiovascular risk factors including blood pressure, lipids,glucose, etc. Please note any changes to medications. Patient to follow up with PCP, Aparna Jordan APRN, in 1-2 weeks. Patient to follow up with Knitting Inspector, Neftali Ernandez MD , in 2 weeks. Patient to follow up with Cardiac Surgeon, Dr. Hayder Graham, with a chest x-ray, EKG, and Echo. Inpatient Provider Contact Information: [facility] Section of Cardiac Surgery [facility] [address] FAX [phone] Discharge Diagnoses (Hospital Problems) Primary Diagnoses: /CAD [...] 33.75) performed by Hayder Graham MD at [facility] MAIN OR PRO CABG, ARTERY-VEIN, TWO N/A 02/17/2024 @CABG, TWO VENOUS GRAFTS & ARTERIAL GRAFT (WRVU 7.93) performed by Hayder Graham MD at [facility] MAIN OR PRO ENDOSCOPY W/VIDEO-ASST VEIN HARVEST, CABG Left 02/17/2024 ENDOSCOPIC HARVEST VEIN(S) FOR CABG (WRVU 0.31) performed by Hayder Graham MD at [facility] MAIN OR PRO REPLACEMENT PROSTHETIC AORTIC VALVE OPEN W CARDIOPULMONARY BYPASS HOMOGRF/STENT N/A 02/17/2024 @REPLACE AORTIC VALVE, OPEN, W\CPB, W\PROSTHETIC VALVE (WRVU 41.32) performed by Hayder Graham MD at [facility] MAIN OR Prior To Admission [...] insufficiency. He has glaucoma. He used to bacClustrix until about 15 years ago. He has [...] Hayder Graham and/or the Cardiac Surgery Physician Brass Finisher Team may be reached at . Antibiotic [...] Please refer to the card with the English Heart Association Guidelines for more information. You [...] Dr. Hayder Graham. You may use a [place] or treadmill but avoid any pulling [...] should resume a low fat, low cholesterol, English Heart Association Diet. Driving: No driving until [...] while being managed by your PCP and/or Knitting Inspector. For future medication refills, please refer to your PCP and/or Knitting Inspector after your discharge from our service. Thank you REMOVE CHEST TUBE SUTURES ON OR AFTER 03/02/24 Home oxygen therapy: N/A Follow up appointments: You should follow up with your PCP, Aparna Jordan APRN, in 1-2 weeks. Our office will schedule an appointment with your Knitting Inspector, Neftali Ernandez MD , in 2 weeks. You have an appointment with your Cardiac Surgeon, Dr. Hayder Graham, 4 weeks with a chest x-ray, EKG, and Echo before your appointment. Cardiac Rehabilitation: Karlos Garcia was seen regarding participation in the outpatient Phase 2Cardiac Rehabilitation at [facility]. The patient agrees to a referral to this program. The referral will be sent at discharge and the patient should be contacted by the Program within 1- 2 weeks from discharge. Future Appointments and Orders Future Orders Complete By Expires Echocardiogram Transthoracic [86098 CPT(R)] 03/26/2024 09/25/2024 Process Instructions: Scheduling Instructions: Questions: Where will study be performed?: [facility] Does the patient have Congenital Heart Disease?: Does patient require sedation?: Sedation rationale: XR Chest PA & Lateral (Generic) [74102 59986 Custom] 03/26/2024 09/25/2024 Process Instructions: Scheduling Instructions: Questions: Portable exam?: Reason for exam and clinical history: s/p avr/cabg Clinical information / jerome questions for radiologist: Stat read required?: Date of injury if applicable: Requested Time: Where will study be performed?: [facility] Radiology Referral to Cardiac Rehab [[id number] Custom] As directed Process Instructions: If no progress note charted, please enter Clinical details in comments. Scheduling Instructions: Questions: My question or request is: s/p AVR/CABG. Cardiac rehab at [facility]. Referral to Home Health [REF34 Custom] As directed Process Instructions: If no progress note charted, please enter Clinical details in comments. Scheduling Instructions: Comments: Please evaluate Karlos Garcia for admission to Home Health. [address] Phone Number: Date of : 1960 Inpatient DOCUMENTATION FOR VNA SERVICES (INCLUDING THOSE PATIENTS WITH MEDICARE COVERAGE REQUIRING HOME VNA SERVICES AND/OR HOSPICE SERVICES) PATIENT'S LOCATION: Karlos Garcia [address] [employer] [phone] Flight Attendant Inflight Services's Name: self/family In discussion with the attending physician, it is certified that this patient is under their care and that they, or a Nurse Practitioner, or Physician Brass Finisher who is working directly with them, hada [...] for services as follows: HOME HEALTH AGENCY: [facility] [address] [place] [phone] RN orders: Cardiopulmonary assessment, incisional assessment, assess [...] issues please call the Cardiology Office at [phone] FOR MEDICARE ONLY: (please delete this section [...] [facility] [address] FAX [phone] Date: 02/24/2024 CC: Aparna Jordan, MAURI Jordan, Aparna Sherman APRN [address] [place] [address] documented in this encounter Discharge Instructions * [...] Hayder Graham and/or the Cardiac Surgery Physician Brass Finisher Team may be reached at . Antibiotic [...] Please refer to the card with the English Heart Association Guidelines for more information. You [...] Dr. Hayder Graham. You may use a [place] Track or treadmill but avoid any pulling [...] should resume a low fat, low cholesterol, English Heart Association Diet. Driving: No driving until [...] while being managed by your PCP and/or Knitting Inspector. For future medication refills, please refer to your PCP and/or Knitting Inspector after your discharge from our service. Thank you REMOVE CHEST TUBE SUTURES ON OR AFTER 03/02/24 Home oxygen therapy: N/A Follow up appointments: You should follow up with your PCP, Aparna Jordan APRN, in 1-2 weeks. Our office will schedule an appointment with your Knitting Inspector, Neftali Ernandez MD , in 2 weeks. You have an appointment with your Cardiac Surgeon, Dr. Hayder Graham, 4 weeks with a chest x-ray, EKG, and Echo before your appointment. Cardiac Rehabilitation: Karlos Garcia was seen regarding participation in the outpatient Phase 2Cardiac Rehabilitation at [facility]. The patient agrees to a referral to [...] 0600 and on the weekends please page [phone]. * Eric Barahona PA - 02/23/2024 9:27 [...] 0600 and on the weekends please page [phone]. * Tiffanie Owens, [employer] - 02/22/2024 2:48 PM EDT Physical Therapy [...] d/c for 10 days. Pt was indep [employer]. He drives. He works Precautions/Special Considerations: STERNAL [...] LRAD and supervision Time IN / OUT: 7860-3422 Total Time: 30 minutes; TEFx2 Tiffanie Owens Pager: [phone] Physical Therapy Inpatient Rehabilitation Department * Romeo [...] 0600 and on the weekends please page [phone]. * Kelley Hinson [employer] - 02/21/2024 10:15 AM EDT Physical Therapy [...] d/c for 10 days. Pt was indep [employer]. He drives. He works Precautions/Special Considerations: STERNAL [...] LRAD and supervision Time IN / OUT: 6651-3223 Total Time: 25 minutes; TEF 2 Kelley Hinson PTA Pager: [phone] Physical Therapy Inpatient Rehabilitation Department * Louisa [...] 0600 and on the weekends please page [phone]. * Kelley Hinson PTA - 02/20/2024 3:32 [...] at that time Kelley Hinson PTA Pager: [phone] Physical Therapy Inpatient Rehab Department * Louisa [...] on the weekends please page [phone]. * Maris Benavides, PT - 02/19/2024 11:22 [...] d/c for 10 days. Pt was indep [employer]. He drives. He works. Precautions/Special Considerations: STERNAL [...] outlined inthis evaluation. MARIS BENAVIDES, PT Pager: [phone] Physical Therapy Inpatient Rehabilitation Department Time IN / OUT: 7178-1074 Total Time: 38 (eval) minutes; * Antonio [...] 0600 and on the weekends please page [phone]. * Minnie Begum PA - 02/18/2024 8:25 [...] 0600 and on the weekends please page [phone]. * Kim Ha RCP - 02/17/2024 2:25 [...] plan since last visit. Hayder Graham MD [phone] Source Note - Hayder Graham MD - [...] given written informed consent. Hayder Graham MD [phone] * Hayder Graham MD - 02/17/2024 7:00 [...] given written informed consent. Hayder Graham MD [phone] documented in this encounter Miscellaneous Notes * [...] information for follow-up Home Health & Hospice, [address] [place] [address] Cardiac Rehab, [address] [place] [address] Transportation: family or friend will provide Functional status prior to admission: Independent Home Environment: Others in the home: alone. Current Living Arrangements: home/apartment/condo. Accessibility Concerns:a few steps to enter 1 floor home. Current Functional Ability: Assistive Person and Equipment DME used at home: none DME Needed at Discharge: N/A Patient is insured through: Primary Insurance: [employer] Payor: [facility] / Plan: [facility] PPO / Product Type: *No Product type* [...] pain managed with scheduled Tylenol. Worked with [employer]. Ambulated in the roque multiple times [...] anticipated Patient is insured through: Primary Insurance: [facility] Payor: [facility] / Plan: [facility] PPO / Product Type: *No Product type* / Secondary Insurance: N/A Last Physical Therapy Recommendation: home with home health (Str coming to stay for a week or two upon d/c) with to be determined (owns rolling walker, shower seat) Plan for discharge is: Home w/ Services Outpatient Agency/Support Group Needs: Homecare agency Home Health Services: Physical Therapy, Registered Nurse Agency Referrals: [facility] [address] [place] [phone] Transportation: family or friend will provide Barriers to discharge: Discharge planning Plan going forward: Service Care Management will continue to follow and assist with discharge planning and coordination of care as indicated. Anticipated Date of Discharge: 02/22/2024 Rhett Bell RN RN/CM - Cellphone: [phone] Pager: [phone] Covering Service RN/CM * Plan of Care [...] 02/19/2024 10:44 AM EDT [facility] Karlos Garcia was seen today regarding participation in the outpatient Phase 2 Cardiac Rehabilitation at [facility]. The patient agrees to a referral to [...] 180 days) Any patient receiving care in [place] must abide by [place] law. The hierarchy [...] (i) The agent with financial power of prosecuting attorney or a conservator appointed in [...] place to sleep or slept in [facility] (including now)?: No In the past 12 months has the [place], gas, oil, or water [employer] threatened to shut off services in your [...] [address] [facility] [address] Physical address: [address] [facility], [address] Social & Family Supports: All names listed [...] Information: none noted Health/Prescription Coverage: Primary Insurance: [facility] Payor: [facility] / Plan: [facility] PPO / Product Type: *No Product type* / Secondary Insurance: N/A ; Prescription Coverage: Yes Preferred Pharmacy: [id number] [address] [place] Status: Patient is a : No Primary Care Provider confirmed: Aparna Jordan, MAURI [phone] Patient/Caregiver Goals of Treatment: dc to home Potential Needs for Transition of Care: home health care Agency Referrals: I have met with the patient to: discuss discharge planning needs. provide the [facility], Office of Care Management letter from the Coping Machine Operator pertaining to rehab referrals. provide a letter describing our affiliations within the [facility] and educate about their right to choose where referrals are sent. provide a list of Home Health Agencies / Durable Medical Equipment vendors which serve their preferred geographic area. provided patient with [facility] Star Quality Rating handout. They have requested referrals to: [facility] [address] [place] [address] Note routed to a Manufacturing Engineer who will communicate referrals to facilities [...] Reina Greene RN CM, BSN, CMGT-BC Ext [phone] * Plan of Care - Binta Trinidad [...] Operative Note Patient Name: Karlos Garcia : [id number] MR#: [id number] Case Date: 02/17/2024 Surgeon: Surgeon(s) and Role: * Hayder Graham MD - Primary * Neftali Menon PA - Physician Brass Finisher Preoperative diagnosis: CAD Postoperative diagnosis: CAD, intraoperative [...] 23 mm Inspiris Bioprosthesis Anesthesia: General / Ajylen Findings: CAD, intraoperative EMMA confirmed the presence [...] Disposition: [facility] Condition: doing well without problems Attestation: Case Date: 02/17/2024 I performed this procedure without the involvement of a resident. HAYDER GRAHAM MD 02/17/2024 * Op Note - Hayder Graham MD - 02/17/2024 8:20 AM EDT [facility] Operative Note Patient Name: Karlos Garcia : [id number] MR#: [id number] Case Date: 02/17/2024 Surgeon: Surgeons and Role: * Hayder Graham MD - Primary * Neftali Menon PA - Physician Brass Finisher Preoperative diagnosis: CAD Postoperative diagnosis: CAD, intraoperative [...] Aortic Valve Open W Cardiopulmonary Bypass Homogrf/Stent (74117) Yes 02/17/2024 7:28 AM EDT CAD Cabg, Artery-Vein, Two (98437) Yes 02/17/2024 7:28 AM EDT CAD Cabg, Arterial, Single (02368) Yes 02/17/2024 7:28 AM EDT CAD Endoscopy W/Video-Asst Vein [place], Cabg (07515) Yes 02/17/2024 7:28 AM EDT CAD POCT [...] CHEMISTRY ORDERABLE S [facility] [place] [address] * (ABNORMAL) Basic Metabolic Panel (non-fasting) (02/23/2024 [...] Carpio MD CHEMISTRY ORDERABLES Performing Organization Address [facility] Co de Phone Number [facility] [place] [address] * Potassium (02/22/2024 4:30 AM EDT) Potassium [...] MD CHEMISTRY ORDERABLE S Performing Organization Address [facility] Co de Phone Number [facility] [place] [address] * (ABNORMAL) Basic Metabolic Panel (non-fasting) (02/21/2024 [...] MD CHEMISTRY ORDERABLES [facility] [place] [address] * Lactate, whole blood, send to lab ([facility]) (02/21/2024 9:45 AM EDT) Lactate WB 2.0 0.5 - 2.2 mmol/L [facility] Blood 02/21/2024 9:45 AM EDT 02/21/2024 9:52 AM EDT Narrative Resulting Agency Comment Spec In Lab Hayder Graham MD CHEMISTRY ORDERABLE S Performing Organization Address City/[facility]/ZIP Co de Phone Number [facility] [place] [address] * (ABNORMAL) Hepatic Function Panel (02/21/2024 9:45 AM EDT) Pathologist [facility] Protein, Total 5.7(L) 6.1 - 8.0 [...] CHEMISTRY ORDERABLE S Performing Organization Address City/[facility]/ZIP Co de Phone Number [facility] [place] [address] * Lipase (02/21/2024 9:45 AM EDT) Pathologist [facility] Lipase 56 0 - 60 unit/L [facility] Blood 02/21/2024 9:45 AM EDT 02/21/2024 9:52 AM EDT Narrative Resulting Agency Comment Spec In Lab Hayder Graham MD CHEMISTRY ORDERABLE S Performing Organization Address [facility] Co de Phone Number [facility] [place] [address] * Amylase (02/21/2024 9:45 AM EDT) Amylase 69 28 - 100 unit/L [facility] Blood 02/21/2024 9:45 AM EDT 02/21/2024 9:52 AM EDT Narrative Resulting Agency Comment Spec In Lab Hayder Graham MD CHEMISTRY ORDERABLE S Performing Organization Address [facility] de Phone Number [facility] [place] [address] * Potassium (02/21/2024 3:08 AM EDT) Pathologist [facility] Potassium 3.8 3.5 - 5.0 mmol/L [facility] [...] MD CHEMISTRY ORDERABLE S Performing Organization Address [facility] Co de Phone Number [facility] [place] [address] * XR Chest PA & Lateral (Generic) (02/20/2024 10:19 AM EDT) WORKSTATION ID [id number] RAD Anatomical Region Laterality Modality Chest N/A Digital Radiogra phy Impressions 02/20/2024 1:11 PM EDT Small pleural effusions. No pneumothorax Thank you for letting us participate in the care of this patient. ??If you are a health care provider and have any questions regarding this report, please contact the number below. ??For patients who have questions please contact the health child care aide that requested your imaging first. ? Electronically signed by: Rogerio Cruz MD, [facility] ??([phone]), at 02/20/2024 1:11 PM Narrative 02/20/2024 1:11 PM EDT EXAMINATION: XR CHEST PA AND LATERAL (GENERIC) CLINICAL HISTORY: s/p AVR/CABGx3 TECHNIQUE: PA and lateral views of the chest COMPARISON: 02/17/2024 FINDINGS: Support devices: Interval removal of Tully-Kaila catheter, endotracheal tube and mediastinal chest tubes The cardiac silhouette is stable status post median sternotomy, CABG and aortic valve replacement. There are small pleural effusions. No pneumothorax. Procedure Note Rogerio Cruz MD - 02/20/2024 EXAMINATION: XR CHEST PA AND LATERAL (GENERIC) CLINICAL HISTORY: s/p AVR/CABGx3 TECHNIQUE: PA and lateral views of the chest COMPARISON: 02/17/2024 FINDINGS: Support devices: Interval removal of Tully-Kaila catheter, endotracheal tubeand mediastinal chest tubes The [...] have questions please contactthe health child care aide that requested your imaging first. Hayder Graham MD IMG DX ORDERABLES * Scan, Peripheral Blood (02/20/2024 4:23 AM EDT) Plat estimate Decreased [facility] RBC Morphology Normal [facility] Blood 02/20/2024 4:23 AM EDT 02/20/2024 4:42 AM EDT Narrative Resulting Agency Comment Spec In Lab Minnie FRENCH HEMATOLOGY CECILIO ALEMAN [facility] [place] [address] * (ABNORMAL) Differential, Automated (02/20/2024 4:23 AM EDT) Pathologist [facility] Neutrophil % 81.7 % [facility] Neutrophil Absolute 10.37(H) 1.70 - 6.10 x10(3)/mc L [facility] Lymph % 7.4 % [facility] Lymphocytes Abs 0.9 0.9 - 3.2 x10(3)/mc L [facility] Monocyte % 9.7 % [facility] Monocyte Abs 1.2(H) 0.3 - 0.9 x10(3)/mc L [facility] Eos % 0.1 % [facility] [...] HEMATOLOGY CECILIO ALEMAN [facility] [place] [address] * (ABNORMAL) Hemogram (02/20/2024 4:23 AM EDT) White Blood Cell 12.7(H) 4.0 - 9.5 x10(3)/[facility] Red Blood Cell 4.26(L) 4.58 - 5.54 x10(6)/[facility] Hemoglobin 12.3(L) 13.7 - 16.5 g/dL [facility] Hematocrit 37.1(L) 40.5 - 48.5 % [facility] Mean Cell Volume 87.1 82.9 - 93.1 [facility] Mean Cell Hemoglobin 28.9 27.5 - 32.1 pg [facility] Mean Cell Hemoglobin Concentration 33.2 32.0 - 35.7 g/dL [facility] Platelet 88(L) 145 - 357 x10(3)/[facility] RDW Standard Deviation 43.5 36.0 - 45.0 [facility] RDW coefficient of variation 13.7 11.4 - 13.8 % [facility] Mean Platelet Volume 10.2 7.6 - 12.9 [facility]ORY NRBC% auto 0.0 % [facility] NRBC Absolute 0.000 0.000 - 0.000 x10(3)/ L [facility] Blood 02/20/2024 4:23 AM EDT 02/20/2024 4:42 AM EDT Narrative Resulting Agency Comment Spec In Lab Minnie FRENCH HEMATOLOGY CECILIO ALEMAN [facility] [place] [address] * (ABNORMAL) Basic Metabolic Panel (non-fasting) (02/20/2024 [...] CHEMISTRY ORDERABLE S Performing Organization Address City/[facility]/ZIP Co de Phone Number [facility] [place] [address] * Potassium (02/19/2024 3:57 AM EDT) Potassium [...] MD CHEMISTRY ORDERABLE S Performing Organization Address [facility] Co de Phone Number [facility] [place] [address] * POCT Glucose (02/18/2024 8:24 AM EDT) Glucose, POC 157 65 - 199 mg/dL [facility] Comment: Supplemental ranges: <140 mg/dL before meals <180 mg/dL all other times of the day Blood 02/18/2024 8:24 AM EDT 02/18/2024 8:24 AM EDT Hayder Graham MD POINT OF CARE TEST ORDERABLES Performing Organization Address [facility]/ZIP Co de Phone Number [facility] [place] [address] * Scan, Peripheral Blood (02/18/2024 1:40 AM EDT) Plat estimate Decreased [facility] RBC Morphology Normal [facility] Blood 02/18/2024 1:40 AM EDT 02/18/2024 1:56 AM EDT Narrative Resulting Agency Comment Spec In Lab Neftali FRENCH HEMATOLOGY ORDER OLE [facility] [place] [address] * (ABNORMAL) Differential, Automated (02/18/2024 1:40 AM EDT) Neutrophil % 87.1 % [facility] Neutrophil Absolute 15.03(H) 1.70 - 6.10 x10(3)/mc L [facility] Lymph % 3.0 % [facility] Lymphocytes Abs 0.5(L) 0.9 - 3.2 x10(3)/mc L [facility] Monocyte % 9.1 % [facility] Monocyte Abs 1.6(H) 0.3 - 0.9 x10(3)/mc L [facility] Eos % 0.0 % MAYO [...] HEMATOLOGY ORDER OLE [facility] [place] [address] * (ABNORMAL) Hemogram (02/18/2024 1:40 AM EDT) [...] HEMATOLOGY ORDER OLE [facility] [place] [address] * (ABNORMAL) Basic Metabolic Panel (non-fasting) (02/18/2024 [...] CHEMISTRY ORDERABLE S [facility] [place] [address] * (ABNORMAL) Troponin (02/18/2024 1:40 AM EDT) [...] troponin value can be found in the [facility] Test Catalog Troponin - [facility] Test Catalog Reference: Fourth [place] Definition of Myocardial Infarction. Journal of the [employer] College of [employer]iology 2018;72:0380-0127 Blood 02/18/2024 1:40 AM EDT 02/18/2024 1:56 AM EDT Narrative Resulting Agency Comment Spec In Lab Hayder Graham MD CHEMISTRY ORDERABLE S [facility] [place] [address] * POCT Glucose (02/17/2024 8:13 PM EDT) Glucose, POC 142 65 - 199 mg/dL [facility] Comment: Supplemental ranges: <140 mg/dL before meals <180 mg/dL all other times of the day Blood 02/17/2024 8:13 PM EDT 02/17/2024 8:13 PM EDT Hayder Graham MD POINT OF CARE TEST ORDERABLES Performing Organization Address [facility] Co de Phone Number [facility] [place] [address] * POCT Glucose (02/17/2024 5:42 PM EDT) Glucose, POC 160 65 - 199 mg/dL [facility] Comment: Supplemental ranges: <140 mg/dL before meals <180 mg/dL all other times of the day Blood 02/17/2024 5:42 PM EDT 02/17/2024 5:42 PM EDT Hayder Graham MD POINT OF CARE TEST ORDERABLES Performing Organization Address [facility] Co de Phone Number [facility] [place] [address] * Hemoglobin (02/17/2024 5:42 PM EDT) [facility] Signature Hemoglobin 13.7 13.7 - 16.5 g/dL [facility] Blood 02/17/2024 5:42 PM EDT 02/17/2024 6:10 PM EDT Narrative Resulting Agency Comment Spec In Lab Hayder Graham MD HEMATOLOGY ORDERABL ES Performing Organization Address [facility] Co de Phone Number [facility] [place] [address] * Potassium (02/17/2024 5:42 PM EDT) [facility] Signature Potassium 4.3 3.5 - 5.0 [...] CHEMISTRY ORDERABLE S [facility] [place] [address] * (ABNORMAL) BLOOD GAS 2 ARTERIAL (02/17/2024 [...] [facility] FIO2 Art 40 % [facility] PF Ratio Art 195 [facility] Blood 02/17/2024 4:18 PM EDT 02/17/2024 4:18 PM EDT Hayder Graham MD POINT OF CARE TEST ORDERABLES [facility] [place] [address] * XR Chest One View (02/17/2024 1:44 PM EDT) [facility] WORKSTATION ID [id number] DH RAD Anatomical Region Laterality Modality Chest N/A Digital Radiogra phy Impressions 02/17/2024 2:12 PM EDT 1. ??No definite pleural fluid collection or pneumothorax. 2. ??Right IJ Tully-Kaila catheter tip terminates in a descending branch [...] questions please contact the health child care aide that requested your imaging first. ? Electronically signed by: Denzel Hankins MD, [facility] ??([phone]), at 02/17/2024 2:12 PM Narrative 02/17/2024 2:12 PM EDT EXAMINATION: XR CHEST ONE VIEW CLINICAL HISTORY: s/p avr/cabg eval effusions TECHNIQUE: 1 view of the chest COMPARISON: Chest x-ray 01/09/2024, chest CT 02/03/2024 FINDINGS: ET tube tip terminates 5.2 cm above the carlos. Right IJ Tully-Kaila catheter tip terminates in a descending branch [...] 5.2 cm above the carlos. Right IJ Tully-Ganzcatheter tip terminates in a descending branch of [...] fluid collection or pneumothorax. 2. Right IJ Tully-Kaila catheter tip terminates in a descending branch ofthe right pulmonary artery. Suggest catheter retraction. 3. Additional support lines and tubes as above. Thank you for letting us participate in the care of this patient. If youare a health care provider and have any questions regarding this report,please contact the number below. For patients who have questions please contactthe health child care aide that requested your imaging first. Electronically signed by: Denzel Hankins MD, [facility]([phone]), at 02/17/2024 2:12 PM Hayder Graham MD [...] [facility] FIO2 Art 100 % [facility] PF Ratio Art 320 [facility] Blood 02/17/2024 1:31 PM EDT 02/17/2024 1:31 PM EDT Hayder Graham MD POINT OF CARE TEST ORDERABLES [facility] [place] [address] * (ABNORMAL) Coox2 (02/17/2024 1:21 PM EDT) [...] CARE TEST ORDERABLES Performing Organization Address City/[facility]/ZIP Co de Phone Number [facility] [place] [address] * (ABNORMAL) BLOOD GAS 2 ARTERIAL (02/17/2024 [...] OF CARE TEST ORDERABLES Performing Organization Address [facility] Co de Phone Number [facility] [place] [address] * (ABNORMAL) Fibrinogen (02/17/2024 12:10 PM EDT) [...] MD HEMATOLOGY ORDERABLE S Performing Organization Address [facility] Co de Phone Number [facility] [place] [address] * (ABNORMAL) Thrombin time (02/17/2024 12:10 PM [...] MD HEMATOLOGY ORDERABLE S Performing Organization Address [facility] Co de Phone Number [facility] [place] [address] * APTT (02/17/2024 12:10 PM EDT) Partial [...] MD HEMATOLOGY ORDERABLE S Performing Organization Address [facility] Co de Phone Number [facility] [place] [address] * (ABNORMAL) Prothrombin Time (02/17/2024 12:10 PM [...] HEMATOLOGY ORDERABLE S [facility] [place] [address] * (ABNORMAL) Hemogram (02/17/2024 12:10 PM EDT) [...] HEMATOLOGY ORDERABLE S [facility] [place] [address] * (ABNORMAL) BLOOD GAS 2 ARTERIAL (02/17/2024 [...] [facility] Comment: Noted by telegraphic instrument supervisor. Please note: Patients with WBC [...] CARE TEST ORDERABLES [facility] [address] [place] [address] * (ABNORMAL) BLOOD GAS 2 ARTERIAL (02/17/2024 [...] [facility] Comment: Noted by telegraphic instrument supervisor. Please note: Patients with WBC [...] OF CARE TEST ORDERABLES Performing Organization Address [facility] de Phone Number [facility] [place] [address] * (ABNORMAL) Hemoglobin and Hematocrit, blood (02/17/2024 [...] MD HEMATOLOGY ORDERABL ES Performing Organization Address [facility] de Phone Number [facility] [place] [address] * (ABNORMAL) Platelet count (02/17/2024 11:04 AM EDT) Platelet 106(L) 145 - 357 x10(3)/mc L [facility] Immature Plt % 1.6 0.0 - 7.4 % [facility] Comment: Limitation of the Immature Platelet Fraction (IPF)-May be less reliable when the platelet count is less than 65o235/uL due to statistical imprecision. The IPF value [...] in a decreased state of production. References: [employer] The Clinical Value of the Immature Platelet Fraction (IPF) in Cell Recovery Document Number 10-1143 03/2011 [employer] The Role of the Immature Platelet Fraction (IPF) in the Differential Diagnosis of Thrombocytopenia, Document MKT-[id number] V002/15/14 Blood 02/17/2024 11:0 4 AM EDT 02/17/2024 11:12 AM EDT Narrative Resulting Agency Comment Spec In Lab Hayder Graham MD HEMATOLOGY ORDERABL ES Performing Organization Address City/[facility]/ZIP Co de Phone Number [facility] [place] [address] * (ABNORMAL) Fibrinogen (02/17/2024 11:04 AM EDT) [...] HEMATOLOGY ORDERABL ES Performing Organization Address City/[facility]/ZIP Co de Phone Number [facility] [place] [address] * (ABNORMAL) BLOOD GAS 2 ARTERIAL (02/17/2024 [...] TEST ORDERABLES [facility] [place] [place] [address] * (ABNORMAL) BLOOD GAS 2 ARTERIAL (02/17/2024 [...] OF CARE TEST ORDERABLES Performing Organization Address City/State/[facility] Co de Phone Number [facility] [place] [address] * Surgical Pathology Report (02/17/2024 10:01 AM EDT) Final Diagnosis [id number] ? Location: [facility]; [facility]; The signing pathologist has (i) examined the relevant preparation(s) for the specimen(s) and (ii) rendered or confirmed the diagnosis(es). . ?Surgical Pathology DIAGNOSIS Aortic valve leaflets, excision: Valve leaflets with myxoid degeneration, nodular fibrosis and dystrophic calcifications. Electronically signed by: ?Lindsay FERNANDEZ, Livier Gonzalez Verified: ??02/24/2024 13:49 ??Pathologist Performed at: ??-[facility] [place], [place] [address] Coping Machine Operator: Job Brewer MD, FCAP, ??CLIA Certificate: [id number] SPECIMEN(S) SUBMITTED A - Aortic Valve Leaflets, [...] Sections Processing Blocks submitted for decalcification: A1. Swat Team Member sections in 1 cassette labeled A1. ??ajw 02/24/2024 1:49 PM EDT [facility] AORTIC STRUCTURE / Unknown 02/17/2024 10:01 AM EDT 02/17/2024 10:01 AM EDT Hayder Graham MD PATHOLOGY/[place] [address] * Specimen to Pathology (02/17/2024 10:01 AM EDT) AP Specimen 02/17/2024 10:0 1 AM EDT 02/17/2024 10:01 AM EDT Narrative [facility] - 02/17/2024 10:01 AM EDT Specimen requisition ordered. ??Separate Pathology report to follow Hayder Graham MD PATHOLOGY/CYTOLOGY ORDERABLES [facility] [place] [address] * (ABNORMAL) BLOOD GAS 2 ARTERIAL (02/17/2024 [...] CARE TEST ORDERABLES [facility] [place] [address] * (ABNORMAL) BLOOD GAS 2 VENOUS (02/17/2024 9:34 AM EDT) pH, Venous 7.22(Criti marquez) 7.32 - 7.42 [facility] Comment:Noted by telegraphic instrument supervisor. PCO2, Venous 43 41 - 51 mmHg [facility] Comment:Noted by telegraphic instrument supervisor. PO2, Venous 57(H) 25 - 40 mmHg [facility] Comment:Noted by telegraphic instrument supervisor. Bicarbonate, Venous 17.1 mmol/L [facility] Comment:Noted by telegraphic instrument supervisor. Base Excess, Venous -10.6 mmol/L [facility] Comment:Noted by telegraphic instrument supervisor. Hgb Blood Gas 11.2(L) 13.7 - 16.5 g/dL [facility] Comment:Noted by telegraphic instrument supervisor. Oxyhemoglobin, Venous 86.5 % [facility] Comment:Noted by telegraphic instrument supervisor. Carboxyhemoglob in, Venous 0.3 % [facility] Comment: Noted by telegraphic instrument supervisor. Nonsmokers: 0.5-1.5% COHB Smokers: Variable, but usually less than 10% Toxic: 20-30% COHB Lethal: Greater than 60% COHB Methemoglobin, Venous 0.0 <=1.5 % [facility] Comment:Noted by telegraphic instrument supervisor. Na Whole Blood 156(H) 135 - 145 mmol/L [facility] Comment:Noted by telegraphic instrument supervisor. K Whole Blood 5.5(H) 3.5 - 5.0 mmol/L [facility] Comment: Noted by telegraphic instrument supervisor. Please note: Patients with WBC >100,000 may have falsely elevated Potassium levels. Contact the Clinical Chemistry Laboratory if there are any questions. ICa Whole Blood 1.03(L) 1.15 - 1.33 mmol/L [facility] Comment: Noted by telegraphic instrument supervisor. Note: ??Total bilirubin higher than 20 mg/dL may lead to falsely low ionized calcium. CL Whole Blood 100 98 - 107 mmol/L [facility] Comment:Noted by telegraphic instrument supervisor. Gluc Whole Bld 132 65 - 199 mg/dL [facility] Comment: Noted by telegraphic instrument supervisor. Diabetes: >=200 mg/dL plus symptoms Lactate WB 1.0 0.5 - 2.2 mmol/L [facility] Comment:Noted by telegraphic instrument supervisor. Blood Gas Source Venous [facility] Blood 02/17/2024 9:34 AM EDT 02/17/2024 9:34 AM EDT Hayder Graham MD POINT OF CARE TEST ORDERABLES [facility] [place] [address] * (ABNORMAL) BLOOD GAS 2 ARTERIAL (02/17/2024 [...] CARE TEST ORDERABLES Performing Organization Address City/[facility]/ZIP Co de Phone Number [facility] [place] [address] * POCT Glucose (02/17/2024 6:38 AM EDT) Glucose, POC 98 65 - 199 mg/dL [facility] Comment: Supplemental ranges: <140 mg/dL before meals <180 mg/dL all other times of the day Blood 02/17/2024 6:38 AM EDT 02/17/2024 6:38 AM EDT Hayder Graham MD POINT OF CARE TEST ORDERABLES Performing Organization Address [facility] Co de Phone Number [facility] [place] [address] * Transesophageal Echo/OR (02/17/2024 6:33 AM EDT) [...] MD - 02/17/2024 Version: 1 Name: KARLOS GARCAI Study Date: 02/17/2024,6: 33 AM Patient Location:OR^OR18^A [...] [facility] [...] indicated., Routine 0021 (Given - Provider: Polo rBitton RN)0625 (Given - Provider: Polo Britton RN)1215 [...] Discontinued, Routine 0824 (Given - Provider: Reilly Vincetn RN)2056 (Given - Provider: Polo Britton RN) [...] Routine documented in this encounter Care Teams Envelope Press Operator Relationship Specialty Start Date End Date Aparna Jordan APRN PCP - General Family Medicine 10/21/23 05/26/24 documented as of this encounter
--- OUTSIDE RECORDS SUMMARY | 2024-08-25 10:05 | XMS_ITS | Encounter Summary ---
Author Organization [facility] [place] [address] Care Team Providers Care Clinical Genetics Laboratory Chief Name Role Phone Victor M Lafluer MD Primary Care Provider [phone] Encounter Details Date Type Department Care Team (Late st Contact Info) Description 09/26/2023 Abstract Cardiology at [address] [address] Karen Billy, RN Nonrheumatic aortic [...] face documented in this encounter Care Teams Clinical Genetics Laboratory Chief Relationship Specialty Start Date End Date Victor M Lafleur MD PCP - General 10/02/13 10/20/23 documented as of this encounter
--- OUTSIDE RECORDS SUMMARY | 2024-08-25 10:05 | XMS_ITS | Encounter Summary ---
Author Organization [facility] [place] [address] Care Team Providers Care Director Smb Sales Name Role Phone Vanessa Christian Lane DOTSON Primary Care Provider [phone] Encounter Details Date Type Department Care Team (Late st Contact Info) Description 01/09/2024 2:30 PM EDT Clinical Support Same Day at [facility] [place] [id number] Social History Tobacco Use Types Packs/Day Years Used Date Smoking Tobacco: Former Cigarettes Smokeless Tobacco: Never Comments:Quit 15 + years ago Alcohol Use Standard Drinks/Week Comments Yes 0 (1 standard drink = 0.6 oz pur e alcohol) rare [facility] Inpatient Questions Answer Date Recorded Prevent Contact [...] tube link for a video about [facility] cardiac surgery. Instructed [...] type and screen performed while in the [facility]. Sent to Radiology for chest x-ray. Special medication instructions: None Procedure date: not booked. Darian documented in this encounter Plan of Treatment Not on file documented as of this encounter Visit Diagnoses Not on filedocumented in this encounter Care Teams Director Smb Sales Relationship Specialty Start Date End Date Vanessa Christian APRN PCP - General Family Medicine 10/21/23 05/26/24 documented as of this encounter
--- OUTSIDE RECORDS SUMMARY | 2024-08-25 10:05 | XMS_ITS | Encounter Summary ---
Author Organization [facility] Address [facility] [place] [address] Care Team Providers Care Building Rental Superintendent Name Role Phone Vanessa Christian MAURI Primary Care Provider [phone] Encounter Details Date Type Department Care Team (Late st Contact Info) Description 02/14/2024 Orders [place] [id number] Zak Farmer MD [facility] [place] [address] Coronary artery disease, unspecified vessel or lesion type, unspecified whether angina present, unspecified whether nikolski or transplanted heart (Primary Dx) Social History [...] (Bezet) 401 ms MUSE SYSTEM Calculated P [place] -12 degrees MUSE SYSTEM Calculated R [place] 24 degrees MUSE SYSTEM Calculated T [place] 74 degrees MUSE SYSTEM INTERPRETATION Sinus bradycardia T wave abnormality, consider anterior ischemia Abnormal ECG When compared with ECG of 17-FEB-2024 13:24, HI interval has decreased T wave inversion now evident in Anterior leads Confirmed by Paul Guzman ([id number]) on 03/15/2024 8:36:23 AM MUSE SYSTEM 03/12/2024 2:35 PM EDT 03/15/2024 8:36 AM EDT Zak Farmer MD ECG ORDERABLES MUSE SYSTEM * XR Chest PA & Lateral (Generic) (03/12/2024 1:42 PM EDT) Pathologist [facility] WORKSTATION ID [id number] [facility] Anatomical Region Laterality Modality Chest N/A Digital [...] questions please contact the health pet care associate that requested your imaging first. ? 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 Electronically signed by: Augie Sanchez MD, [facility]([phone]), at 03/13/2024 8:28 AM Zak Farmer MD IMG DX ORDERABLES documented in this encounter Visit Diagnoses Diagnosis Coronary artery disease, unspecified vessel or lesion type, unspecified whether angina present, unspecified whether nikolski or transplanted heart- Primary Coronary artery disease, unspecified vessel or lesion type, unspecified whether angina present, unspecified whether nikolski or transplanted heart documented in this encounter Care Teams Building Rental Superintendent Relationship Specialty Start Date End Date Vanessa Christian APRN PCP - General Family Medicine 10/21/23 05/26/24 documented as of this encounter
--- OUTSIDE RECORDS SUMMARY | 2024-08-25 10:05 | XMS_ITS | Encounter Summary ---
Author Organization Formerly [facility] [place] [address] Care Team Providers Care Film Casting Operator Name Role Phone Vanessa Christian MAURI Primary Care Provider [phone] Reason for Visit * Auth/Cert (Routine) Specialty [...] W RHC (WRVU 5.9) Rima Dickinson MD [facility] [place] [place] [address] [facility] Referral ID Status Reason Start Date Expiration Date Visits Re quested Visits Authorized [id number] 1 1 Encounter Details Date Type Department Care Team (Latest Contact Info) Description 02/03/2024 8:06 AM EDT - 02/03/2024 2:54 PM EDT Hospital Encounter [place] [address] Rima Dickinson MD [facility] [place] [address] Screening for cardiovascular condition; Aortic valve stenosis, [...] lbs Follow-up Visits Follow up with your pre algebra teacher in 2-4 weeks Access Site 'Black and Blue' and tenderness is expected during the first week Call if you noted a mass (lump) greater than the size of a ellis Call Office with any Questions and if you have any of the following Clarence Lane M.D Interventional Dental Ceramist Helper Customer Management Specialist #: [phone] * Attachments The following attachments cannot be [...] MD - 02/03/2024 11:48 AM EDT [facility] Interventional Cardiology Adult Pre-Procedure H&P Update: Cardiac Catheterization Karlos Anthony [id number] 1960 Chief Complaint: Aortic stenosis HPI: Mr. [...] is inthe chart Clarence Lane MD Interventional Dental Ceramist Helper 02/03/24 11:48 AM documented in this encounter Miscellaneous Notes * Brief Op Note - Clarence Lane MD - 02/03/2024 12:51 PM EDT Preliminary Cardiac Catheterization Procedure Note: Patient Name: Karlos Anthony : [id number] MR#: [id number] Case Date: 02/03/2024 Customer Management Specialist: Surgeon(s) and Role: * Saira Lua [...] Narrative 02/12/2024 3:47 PM EDT ?[facility] ? Cardiac Catheterization/Intervention Report ? Patient Name: Patenaude, Karlos ? Procedure Date: 02/03/2024 ? A #: [id number] ? Primary Physician: Mogadam, Emad ? Case #: [id number] ? File Name: [id number] ? Catheterization Order Number: [id number] ? [facility] ? Final Report [place], [place] ? Patient Name: ? Karlos Anthony ? ID#: ?[id number] ? : ?1960 ? Procedure Date: ? [...] Saira Lua MD - 02/12/2024 [facility] Cardiac Catheterization/Intervention Report Patient Name: Karlos Anthony Procedure Date: 02/03/2024 A #: [id number] Primary Physician: Saira Lua Case #: [id number] File Name: [id number] Catheterization Order Number: [id number] [facility] FinalReport [place], [place] Patient Name: Karlos Anthony ID#:[id number] :1960 Procedure Date: February 03, 2024 Case [...] (Bezet) 372 ms MUSE SYSTEM Calculated P [place] 59 degrees MUSE SYSTEM Calculated R [place] 34 degrees MUSE SYSTEM Calculated T [place] 63 degrees MUSE SYSTEM INTERPRETATION Sinus bradycardia [...] MD) documented in this encounter Care Teams Film Casting Operator Relationship Specialty Start Date End Date Vanessa Christian APRN PCP - General Family Medicine 10/21/23 05/26/24 documented as of this encounter
--- OUTSIDE RECORDS SUMMARY | 2024-08-25 10:05 | XMS_ITS | Encounter Summary ---
Author Organization [facility] [place] [address] Care Team Providers Care Inventory Auditor Name Role Phone Vanessa Christian APRN Primary Care Provider [phone] Encounter Details Date Type Department Care Team [...] on filedocumented in this encounter Care Teams Inventory Auditor Relationship Specialty Start Date End Date Vanessa Christian APRN PCP - General Family Medicine 10/21/23 05/26/24 documented as of this encounter
--- OUTSIDE RECORDS SUMMARY | 2024-08-25 10:05 | XMS_ITS | Encounter Summary ---
Author Organization [facility] [place] [address] Care Team Providers Care Club Attendant Name Role Phone Vanessa Christian APRN Primary Care Provider [phone] Encounter Details Date Type Department Care Team (Late st Contact Info) Description 01/10/2024 Orders Only [place] [place] [id number] Lawson Napoles PA [facility] [place] [address] Screening for cardiovascular condition; Aortic valve stenosis, [...] unspecified documented in this encounter Care Teams Club Attendant Relationship Specialty Start Date End Date Vanessa Christian APRN PCP - General Family Medicine 10/21/23 05/26/24 documented as of this encounter
--- OUTSIDE RECORDS SUMMARY | 2024-08-25 10:05 | XMS_ITS | Encounter Summary ---
Author Organization Formerly [facility] [place] [address] Care Team Providers Care Director Of Advertising Sales Name Role Phone Vanessa Christian APRN Primary Care Provider [phone] Encounter Details Date Type Department Care Team (Late st Contact Info) Description 12/26/2023 Notes Only Cardiology at [address] [place] [address] Neftali Ernandez MD [facility] [place] [address] Social History Tobacco Use Types Packs/Day Years [...] in this encounter Care Teams Director Of Advertising Sales Relationship Specialty Start Date End Date Vanessa Christian APRN PCP - General Family Medicine 10/21/23 05/26/24 documented as of this encounter
--- OUTSIDE RECORDS SUMMARY | 2024-08-25 10:05 | XMS_ITS | Data Portability ---
Author Organization [place] - [facility] Address [address] [place] [address] Care Team Providers Care Merchandise Coordinator Name Role Phone APARNA JORDAN Primary Care Provider SOFIA MCALLISTER Dentist Assessment No assessment recorded. Plan of Treatment Reminders Order Date Submit Date Provider Last Modified By Organization Details Last Modified Time Details Appointments None recorded . Lab magnesiu m, serum or plasma 024 12/18/19 24 [email or web address] [facility] (Registration ), [address] [place] [address] [place], [address], 4 14:25:25 BMP, serum or plasma 024 12/18/19 24 [email or web address] [facility] (Registration ), [address] [place] [address] [place], [address], 4 14:25:24 Referral None recorded . Procedures None recorded . Surgeries None recorded . Imaging None recorded . Medication Orders None recorded . Patient TargetsNo targets recorded. Patient Instructions Encounter Date Encounter Id Patient Instructions Last Modified By Organization Details Last Modified Time 09/19/2023 [id number] SCHEDULE FOLLOW UP IN 3 MONTHS IF YOU DONT HEAR FROM THE CARDIOLOGY DEPT THIS WEEK CALL [facility] ACCREDITATION MANAGER AND LET THEM KNOW IF YOUR BREATHING GETS WORSE- GO TO THE ER, DONT OVER DO THINGS PHYSICALLY EXPECT A CALL FROM SARA ZAFAR RE: UPDATING YOUR POWER OF BRINE PROCESS OPERATOR (NEED 2 WITNESSED SIGNATURES) Not available 09/19/2023 09:25:07 12/18/2023 [id number] Karlos: expect a call from the STructural heart team at [facility] drink at least [...] 9.3 mg/dL 8.5-10 .1 normal Not Available [address] [place], [address] 12/18/2023 17:09:55 12/18/19 24 12/18/2023 LASIC METAB OLIC PANEL glucose 90 mg/dL 74-106 normal Not Available Baljit montemayor [address] [place], [address] 12/18/2023 17:09:55 12/18/19 24 12/18/2023 LASIC METAB OLIC PANEL BUN 14 mg/dL 7-18 normal Not Available Baljit montemayor [address] [place], [address] 12/18/2023 17:09:55 12/18/19 24 12/18/2023 LASIC METAB OLIC PANEL creatinine 1.0 mg/dL 0.70-1 .30 normal Not Available [address] [place], [address] 12/18/2023 17:09:55 12/18/19 24 12/18/2023 LASIC METAB [...] young er-ag ed adult s. Not Available [address] [place], [address] 12/18/2023 17:09:55 12/18/19 24 12/18/2023 LASIC METAB OLIC PANEL sodium 139 mmol/ L 136-14 5 normal Not Available [address] [place], [address] 12/18/2023 17:09:55 12/18/19 24 12/18/2023 LASIC METAB OLIC PANEL potassium 4.9 mmol/ L 3.5-5. 1 normal Not Available [address] [place], [address] 12/18/2023 17:09:55 12/18/19 24 12/18/2023 LASIC METAB OLIC PANEL chloride 104 mmol/ L 98-107 normal Not Available [address] [place], [address] 12/18/2023 17:09:55 12/18/19 24 12/18/2023 LASIC METAB OLIC PANEL CO2 30.9 mmol/ L 21.0-3 2.0 normal Not Available [address] [place], [address] 12/18/2023 17:09:55 12/18/19 24 12/18/2023 LASIC METAB OLIC PANEL anion gap 4.1 mmol/ L 3-11 normal Not Available [address] [place], [address] 12/18/2023 17:09:55 12/18/19 24 12/18/2023 MAGNE SIUM magnesium 1.8 mg/dL 1.8-2. 4 normal Not Available [address] [place], [address] 12/18/2023 17:09:56 07/27/20 24 07/27/2024 LIPID 2 cholesterol 131 mg/dL <200 Not Available [address] [place], [address] 07/27/2024 11:59:38 07/27/20 24 07/27/2024 LIPID 2 triglyceride 162 mg/dL <150 high Not Available [address] [place], [address] 07/27/2024 11:59:38 07/27/2007/27/2024 LIPID 2 HDL cholesterol 35 mg/dL 40-60 low Not Available Dominique blackburn [address] [place], [address] 07/27/2024 11:59:38 07/27/2007/27/2024 LIPID 2 calculated LDL [...] 18 years or older . Not Available [address] [place], [address] 07/27/2024 11:59:38 07/27/2007/27/2024 COMPR EHENS MADYSON METAB OLIC PANEL calcium 9.2 mg/dL 8.5-10 .1 normal Not Available [address] [place], [address] 07/27/2024 11:59:38 07/27/2007/27/2024 COMPR EHENS MADYSON METAB OLIC PANEL glucose 83 mg/dL 74-106 normal Not Available Baljit montemayor [address] [place], [address] 07/27/2024 11:59:38 07/27/2007/27/2024 COMPR EHENS MADYSON METAB OLIC PANEL BUN 20 mg/dL 7-18 high Not Available Baljit montemayor [address] [place], [address] 07/27/2024 11:59:38 07/27/2007/27/2024 COMPR EHENS MADYSON METAB OLIC PANEL creatinine 1.0 mg/dL 0.70-1 .30 normal Not Available [address] [place], [address] 07/27/2024 11:59:38 07/27/2007/27/2024 COMPR EHENS MADYSON METAB [...] young er-ag ed adult s. Not Available [address] [place], [address] 07/27/2024 11:59:38 07/27/2007/27/2024 COMPR EHENS MADYSON METAB OLIC PANEL total protein 6.8 g/dL 6.4-8. 2 normal Not Available [address] [place], [address] 07/27/2024 11:59:38 07/27/2007/27/2024 COMPR EHENS MADYSON METAB OLIC PANEL albumin 3.5 g/dL 3.4-5. 0 normal Not Available [address] [place], [address] 07/27/2024 11:59:38 07/27/2007/27/2024 COMPR EHENS MADYSON METAB OLIC PANEL bilirubin, total 0.77 mg/dL 0.2-1. 0 normal Not Available [address] [place], [address] 07/27/2024 11:59:38 07/27/2007/27/2024 COMPR EHENS MADYSON METAB OLIC PANEL alk phos 84 U/L 46-116 normal Not Available [address] [place], [address] 07/27/2024 11:59:38 07/27/2007/27/2024 COMPR EHENS MADYSON METAB OLIC PANEL sodium 141 mmol/ L 136-14 5 normal Not Available [address] [place], [address] 07/27/2024 11:59:38 07/27/2007/27/2024 COMPR EHENS MADYSON METAB OLIC PANEL potassium 4.8 mmol/ L 3.5-5. 1 normal Not Available [address] [place], [address] 07/27/2024 11:59:38 07/27/2007/27/2024 COMPR EHENS MADYSON METAB OLIC PANEL chloride 105 mmol/ L 98-107 normal Not Available [address] [place], [address] 07/27/2024 11:59:38 07/27/2007/27/2024 COMPR EHENS MADYSON METAB OLIC PANEL CO2 30.9 mmol/ L 21.0-3 2.0 normal Not Available [address] [place], [address] 07/27/2024 11:59:38 07/27/2007/27/2024 COMPR EHENS MADYSON METAB OLIC PANEL anion gap 5.1 mmol/ L 3-11 normal Not Available [address] [place], [address] 07/27/2024 11:59:38 07/27/2007/27/2024 COMPR EHENS MADYSON METAB OLIC PANEL AST 20 U/L 15-37 normal Not Available Baljit montemayor [address] [place], [address] 07/27/2024 11:59:38 07/27/2007/27/2024 COMPR EHENS MADYSON METAB OLIC PANEL ALT 32 U/L 16-63 normal Not Available Baljit montemayor [address] [place], [address] 07/27/2024 11:59:38 07/27/2007/27/2024 CREAT INE KINAS E creatine kinase 133 U/L 39-308 normal Not Available [facility] [address] , [place], [address] 07/27/2024 11:48:30 09/11/2012/05/2022 trans -thor acic echoc ardio gram (TTE) (PROC ) No observ ation record ed. [email or web address] [facility] Xray [address] , [place], [address], 09/13/2023 09:29:52 09/11/20 23 06/01/2022 XR, hip, unila teral No observ ation record ed. [email or web address] Not Available 2022 09:29:19 09/11/2012/06/2019 , echoc ardio gram No observ ation record ed. [email or web address] [facility]- Cardiology [address] [place], [address], 09/13/2023 09:28:49 07/27/20 24 07/27/2024 x-ray imagi ng repor t Flor t Name: Kanu Hugo Unit #: [id number] Loc: DI Orderi ng Provid er: Dc Louis DO Accoun t #: [id number] Status : REG CLI Primar y Care Provid er: Danna Jordan STUDENT OFFICER Date of Exam: 07/08 10/30 Sex: M [...] ar calcif icatio n is noted manager core iorly in the poplit eal artery . [...] the addres s above. Thank- you. INTERFACE [facility] [address], [place], [address] 07/27/2024 18:10:30 Result Notes None recorded. Problems Name Problem SNOMED Code Status Onset Date Resolution Date Notes Provider Name and Address Organization Details Recorded Time Gastroes ophageal reflux disease without esophagi tis 479643010 Active 2022 Problem Code: K21.9; Problem Code Type: ICD-10; Not Available [facility] 4 05:35:57 Glaucoma 44287449 Active 2022 Problem Code: H40.9; Problem Code Type: ICD-10; Not Available [facility] 4 05:35:57 Hyperlip idemia 69911921 Active 2022 Problem Code: E78.5; Problem Code Type: ICD-10; Not Available [facility] 4 05:35:57 [facility] hyperten marisol 56213250 Active 2022 Problem Code: I10; Problem Code Type: ICD-10; Not Available [facility] 4 05:35:57 Pain of left hip joint 11300482063 9100 Active 2022 Problem Code: M25.552; Problem Code Type: ICD-10; Not Available [facility] 4 05:35:57 Idiopath ic osteoart hritis 912587708 Active 2022 Problem Code: M16.12; Problem Code Type: ICD-10; Not Available [facility] 4 05:35:57 Inguinal hernia 434129414 Active 2022 Problem Code: K40.90; Problem Code Type: ICD-10; Not Available [facility] 4 05:35:57 Heart murmur 00823709 Active 2022 Problem Code: R01.1; Problem Code Type: ICD-10; Not Available [facility] 4 05:35:57 Dyspnea 810255862 Active 2022 Problem Code: R06.09; Problem Code Type: ICD-10; Not Available [facility] 4 05:35:57 Chest pain 79751007 Active 2022 Problem Code: R07.89; Problem Code Type: ICD-10; Not Available [facility] 4 05:35:57 Melanocy tic nevus 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 Active 2022 Problem Code: D22.9; Problem Code Type: ICD-10; Not Available [facility] 4 05:35:57 Aortic stenosis , non-rheu matic 457273909 Active 2022 Problem Code: I35.0; Problem Code Type: ICD-10; Not Available [facility] 4 05:35:58 Aortic stenosis , non-rheu matic 410753639 Completed 202208/14/2023 Problem Code: I35.0; Problem Code Type: ICD-10; Not Available [facility] 4 05:35:58 Indigest ion 268584785 Active 2023 GLORIA CAMP LPN null, [facility] 4 08:48:57 Coronary artery bypass grafts x 3 Active 2023 Kelly Duran RN null, [facility] 4 10:30:01 At increase d risk of atrial fibrilla tion 937272416 Active [address], [place], [address] , [facility] 4 13:52:01 Anemia 763464697 Active [address], [place], [address] , [facility] 4 13:54:39 Problem Notes None recorded. Procedures Surgical History Date Name Laterality Status Provider Name and Address Organization Details Recorded Time coronary artery bypass graft completed Husdon Reeder MA [facility] 03/04/2024 14:54:09 Imaging Results Imaging Date Name Status LastModified by Organization Details LastModified Time 12/05/2022 trans-thoracic echocardiogram (TTE) (PROC) completed [address] Xray [address] , [place], [address], 09/13/2023 09:29:52 06/01/2022 XR, hip, unilateral [email or web address] Information not available 09/13/2023 09:29:19 12/06/2019 US, echocardiogram completed [address]- Cardiology [address] [place] [address] [place], [address], 09/13/2023 09:28:49 07/27/2024 x-ray imaging report completed INTERFACE [address] [place], [address] 07/27/2024 18:10:30 Procedure Notes None recorded. Medical [...] es. Take 1 hr prior. Started by [facility]. Not Available Not [...] BY MOUTH DAILY 02/24 completed stopped by [facility] Not Available Not [...] hours by oral route as needed. active [facility] Not Available Not Available No t Available Aspirin Childrens 81 mg chewable tablet Take 1 tablet by mouth once a day active Not Available Not Available No t Available lisinopri l 5 mg tablet TAKE 1 TABLET BY MOUTH EVERY DAY 02/24 completed stopped by [facility] Not Available Not [...] day by oral route. active started by [facility] Not Available Not Available Not Available dorzolami de 2 % (PF) eye drops 1 drop both eyes bid 12/17 completed Not Available Not Available Not Available Vitals Date Recorded Body weight Body mass index (BMI) Body height Heart rate Systolic blood pressure Diastolic blood pressure Provider Name and Address Organization Details Last Updated DateTime 3 19553.7 8 g 23.7 kg/m2 167.64 cm 64 /min 110 mm[Hg] 60 mm[Hg] GLORIA CAMP LPN [facility] 3 08:48:49 Date Recorded Body height Body mass index (BMI) Body weight Heart rate Systolic blood pressure Diastolic blood pressure Provider Name and Address Organization Details Last Updated DateTime 4 167.64 cm 24.6 kg/m2 74339.4 4 g 60 /min 112 mm[Hg] 80 mm[Hg] GLORIA CAMP LPN [facility] 4 08:38:13 Date Recorded Body height Body mass index (BMI) Body weight Heart rate Oxygen saturation Oxygen saturation in Arterial blood by Pulse oximetry Systolic blood pressure Diastolic blood pressure Provider Name and Address Organization Details Last Updated DateTime 4 167.64 cm 22.6 kg/m2 43138.6 5 g 63 /min 99 % 99 % 102 mm[Hg] 54 mm[Hg] Hudson Reeder MA [facility] 4 10:27:28 Social History Question Answer Notes LastModified by Organizat ion Details LastModified Time Tobacco Smoking Status Former Smoker Hudson Reeder MA null, [place] - [facility]. 03/06/2024 10:24:50 Do You Have An Advance Directive? Yes Registered 08/15/23 Updated 01/12/24 Information not available 01/15/2024 When Did You Quit Smoking? 11-15years sincelastc igarette [email or web address] Information not available 03/06/2024 Do You Have A Medical Power Of Supervisor [employer]? Yes Received 08/30/23, Scanned. Copies Sent To [facility] And Patient 09/02/23. Information not available 09/02/2023 What Was The Date Of Your Most Recent Tobacco Screening? 03/06/2024 [email or web address] Information not available 03/06/2024 What Is Your Current Pack Years? 30ormorepa ckyears [email or web address] Information not available 03/06/2024 How Much Tobacco Do You Smoke? 1 PPD [email or web address] Information not available 03/06/2024 How Many Years Have You Smoked Tobacco? 40 [email or web address] Information not available 03/06/2024 Do You Or Have You Ever Used Any Other Forms Of Tobacco Or Nicotine? No [email or web address] Information not available 03/06/2024 Sex: Male Functional [...] Td(adult) unspecified formulation 11/21/2022 completed Not Available [facility] 10/18/2023 05:30:17 COVID-19, mRNA, LNP-S, PF, 100 mcg/0.5mL dose or 50 mcg/0.25mL dose 01/24/2021 completed Not Available [facility] 10/18/19 05:30:18 COVID-19, mRNA, LNP-S, PF, 100 mcg/0.5mL dose or 50 mcg/0.25mL dose 02/21/2021 completed Not Available [facility] 10/18/19 05:30:18 COVID-19, mRNA, LNP-S, PF, 100 mcg/0.5mL dose or 50 mcg/0.25mL dose 09/11/2021 completed Not Available [facility] 10/18/19 05:30:18 influenza, unspecified formulation 07/26/2021 completed Not Available [facility] 10/18/2023 05:30:18 influenza, unspecified formulation 07/26/2022 completed Not Available [facility] 10/18/2023 05:30:18 influenza, unspecified formulation 07/28/2020 completed Not Available [facility] 10/18/2023 05:30:18 influenza, unspecified formulation 08/05/2019 completed Not Available [facility] 10/18/2023 05:30:18 influenza, unspecified formulation 08/12/2018 completed Not Available [facility] 10/18/2023 05:30:18 Past Encounters Encounter ID Performer Location Encounter Start Date Encounter Closed Date Diagnosis/Indication Diagnosis SNOMED-CT Code Diagnosis ICD10 Code [id number] [address] [address] 09/19/2023 08:39:51 09/19/2023 09:17:42 Aortic valve stenosis 37673786 I35.0 Essential hypertension 89159930 I10 [id number] [address] [address] 12/18/2023 08:23:47 12/18/2023 09:29:09 Aortic stenosis, non-rheumatic 213841865 I35.0 Essential hypertension 95538380 I10 Nonulcer dyspepsia 26272 07 K30 Cramp in lower leg 69255 8009 R25.2 [id number] TATYANA LEDEZMA MD [address] [address] 03/06/2024 10:15:07 03/06/2024 11:14:28 Postoperative visit 072251640 Z48.89 Aortic rosa m nosis, non-rheumatic 846851225 I35.0 Stented co ronary artery 260165264 Z95.5 [facility] of [facility] 420028750 Z91.89 Anemia 050704873 D64.9 Health Concerns Section Related Observation LastModified by Organization Detai ls LastModified Time None Recorded Concern Status LastModified by Organization Details LastModified Time None Recorded Advance Directives Directive Y: Registered 08/15/23Updated 01/12/24 Payers Encounter Date Sequence Insurance Name Policy Number Policy Alicia Covered Member ID Alicia Member ID Guarantor Name 12/18/2023 1 [facility] [id number] Karlos C Patenaude [id number] Karlos C Patenaude 03/06/2024 1 [place] [id number] Karlos C Patenaude [id number] Karlos C Patenaude Notes Date Note Type Note Provider Name and Address Organization Details Recorded Time 09/19/2023 text/html 63-year-old man here for follow-up hypertension, severe aortic stenosis.,He works full-time at [employer]. He lives at home with his dog. He has not heard from [facility] cardiology? referred mid-August.He did decrease his lisinopril to 5 mg, [...] is trivial to mild aortic insufficiency. Aparna lizarraga, [facility]. 09/19/2023 13:31:38 12/18/2023 text/html 63-year-old man here for follow-up hypertension, severe aortic stenosis.,He works full-time at [employer]. He lives at home with his [...] denies cough. He is a non-smoker (former smoker).He also reports longstanding reflux/dyspepsia has been using omeprazole for a number of years. It is well-controlled currently.He is asking if I can check on a hernia in his abdomen? he had a repair a number of years ago at [facility], it is starting to cause some discomfort. Reports leg cramps at nighttime intermittently, improves when he has a Gatorade during the daytime and Ovaltine in his coffee. Aparna lizarraga, [facility], [facility]. 12/18/2023 11:43:00 03/06/2024 text/html Karlos is here today for a postop evaluation TATYANA LEDEZMA MD [address], [place], [address], [facility]. 03/08/2024 13:57:34
--- OUTSIDE RECORDS SUMMARY | 2024-08-25 10:05 | XMS_ITS | Encounter Summary ---
[place] [address] Care Team Providers Care Photo Mask Pattern Generator Name Role Phone Vanessa Christian MAURI Primary Care Provider [phone] Reason for Visit * Auth/Cert (Routine) Specialty [...] W RHC (WRVU 5.9) Rima Dickinson MD [facility] [place] [address] [facility] Referral ID Status Reason Start Date Expiration Date Visits Re quested Visits Authorized [id number] 1 1 Encounter Details Date Type Department Care Team (Late st Contact Info) Description 02/03/2024 10:00 AM EDT - 02/03/2024 11:00 AM EDT Surgery [place] [address] Saira Lua MD CARDIAC CATHETERIZATION Social History [...] lbs Follow-up Visits Follow up with your spring coiler hand in 2-4 weeks Access Site 'Black and Blue' and tenderness is expected during the first week Call if you noted a mass (lump) greater than the size of a ellis Call Office with any Questions and if you have any of the following Clarence Lane M.D Interventional Email Manager Plate Colorer #: [phone] * Attachments The following attachments cannot be [...] Lane MD - 02/03/2024 11:48 AM EDT [facility] Interventional Cardiology Adult Pre-Procedure H&P Update: Cardiac Catheterization Karlos Anthony [id number] Chief Complaint: Aortic stenosis HPI: Mr. [...] is inthe chart Clarence Lane MD Interventional Email Manager 02/03/24 11:48 AM documented in this encounter Miscellaneous Notes * Brief Op Note - Clarence Lane MD - 02/03/2024 12:51 PM EDT Preliminary Cardiac Catheterization Procedure Note: Patient Name: Karlos Anthony : [id number] MR#: [id number] Case Date: 02/03/2024 Plate Colorer: Surgeon(s) and Role: * Saira Lua MD [...] ? Procedure Date: 02/03/2024 ? A #: [id number] ? Primary Physician: Mogadam, Emad ? Case #: [id number] ? File Name: [id number] ? Catheterization Order Number: [id number] ? [facility] ? Final Report [place], [place] ? Patient Name: ? Karlos Patenaude ? ID#: ?[id number] ? : ?1960 ? Procedure Date: ? [...] Karlos Anthony Procedure Date: 02/03/2024 A #: [id number] Primary Physician: Saira Lua Case #: [id number] File Name: [id number] Catheterization Order Number: [id number] [facility] FinalReport [place], [place] Patient Name: Karlos Anthony ID#:[id number] :1960 Procedure Date: February 03, 2024 Case [...] designated as ASA Class III. The [facility] clinical frailty scale is 3: [...] (Bezet) 372 ms MUSE SYSTEM Calculated P [place] 59 degrees MUSE SYSTEM Calculated R [place] 34 degrees MUSE SYSTEM Calculated T [place] 63 degrees MUSE SYSTEM INTERPRETATION Sinus bradycardia [...] MD) documented in this encounter Care Teams Photo Mask Pattern Generator Relationship Specialty Start Date End Date Vanessa Christian APRN PCP - General Family Medicine 10/21/23 05/26/24 documented as of this encounter
--- OUTSIDE RECORDS SUMMARY | 2024-08-25 10:05 | XMS_ITS | Encounter Summary ---
Author Organization [facility] [place] [address] Care Team Providers Care Internet Webmaster Name Role Phone Vanessa Christian APRN Primary Care Provider [phone] Encounter Details Date Type Department Care Team (Late st Contact Info) Description 10/21/2023 Abstract Cardiology at [address] [place] [phone] Adam Mayes RN Social History Tobacco Use [...] on filedocumented in this encounter Care Teams Internet Webmaster Relationship Specialty Start Date End Date Vanessa Christian APRN PCP - General Family Medicine 10/21/23 05/26/24 documented as of this encounter
--- OUTSIDE RECORDS SUMMARY | 2024-08-25 10:05 | XMS_ITS | Encounter Summary ---
Author Organization [facility] Address [facility] Ivana linareseileen [place] [id number] Care Team Providers Care Amusement Or Recreation Card Checker Name Role Phone Vanessa Christian MAURI Primary Care Provider [phone] Reason for Referral * Consultation (Routine) - Closed Specialty Diagnoses / Procedures Referred By Contac t Referred To Contact Cardiac Surgery Diagnoses Nonrheumatic aortic valve stenosis significant - TAVR ( defers to Card Surg d/t age) Errol Loya MD [facility] [place] [address] Zak Farmer MD [facility] C[place]IOTH[place] [address] Referral ID Status Reason Start Date Expiration Date V isits Requested Visits Authorized [id number] Closed Consult, Test & Treat 10/21/2023 10/20/2024 1 1 Reason for Visit * Reason Comments Chest Pain Shortness of Breath Aortic Stenosis Encounter Details Date Type Department Care Team (Late st Contact Info) Description 10/21/2023 1:20 PM EST Office Visit Cardiology at [address] [address] Errol Loya MD [facility] [place] [address] Nonrheumatic aortic valve stenosis Social History Tobacco [...] Problem List Diagnosis Aortic stenosis 12/2022 TTE ([facility]): VITA 0.8-0.9 cm2 (MG 28 mmHg, DOI 3.6 m/s, SVI 35 cc/m2). Trace regurgitation. Normal bi-v s/f, no other valve findings Gastroesophageal reflux Nevus of face Right buddhism Hypertension HLD (hyperlipidemia) MEDICATIONS: Current Outpatient Medications [...] the meantime will refer [facility] [place] [facility] [place] the meantime will refer to T at [facility] [...] disorders documented in this encounter Care Teams Amusement Or Recreation Card Checker Relationship Specialty Start Date End Date Vanessa Christian APRN PCP - General Family Medicine 10/21/23 05/26/24 documented as of this encounter
--- OUTSIDE RECORDS SUMMARY | 2024-08-25 10:05 | XMS_ITS | Encounter Summary ---
Author Organization [facility] [place] [address] Care Team Providers Care Interactive Account Manager Name Role Phone Vanessa Christian MAURI Primary Care Provider [phone] Reason for Visit * Auth/Cert (Routine) Specialty [...] (WRVU 7.93) Zak Farmer MD [facility] [place] [address] [facility] Referral ID Status Reason Start Date Expiration Date Visits Re quested Visits Authorized [id number] 1 1 Encounter Details Date Type Department Care Team (Late st Contact Info) Description 02/17/2024 7:35 AM EDT Anesthesia Event Main Operating Room [facility] [place] [phone] Roman York MD [facility] [place] [address] Anesthesia Record Procedure Summary Procedure Name Responsible [...] by Sadiq Woo RN PIV 02/17/24; 0715; [id number] catheter system; 18 gauge; cephalic vein (lateral [...] th e electric, gas, oil, or water [employer] threatened to shut off services in your [...] Procedure Summary Date: 02/17/24 Room / Location: [facility] OR [address] [place] [address] MAIN OR Anesthesia Start: 734 Anesthesia Stop: [...] shown include unfiled device data. Patient Location: [facility] Level of Consciousness: Sedated [...] mg documented in this encounter Care Teams Interactive Account Manager Relationship Specialty Start Date End Date Vanessa Christian APRN PCP - General Family Medicine 10/21/23 05/26/24 documented as of this encounter
--- OUTSIDE RECORDS SUMMARY | 2024-08-25 10:05 | XMS_ITS | Encounter Summary ---
Author Organization [facility] [place] [address] Care Team Providers Care Stagecraft Teacher Name Role Phone Vanessa Christian Lane DOTSON Primary Care Provider [phone] Reason for Referral * Diagnostic Test (Routine) - Closed Specialty Diagnoses / Procedures Referred By Contac t Referred To Contact Radiology Diagnoses Nonrheumatic aortic valve stenosis Procedures CT Chest wo Contrast (Generic) Louisa Cho PA [facility] [place] [address] [facility] [place] [address] Referral ID Status Reason Start Date Expiration Date V isits Requested Visits Authorized [id number] Closed Specialty Service Requested 01/10/2024 07/11/2025 1 1 Reason for Visit * Diagnostic Test (Routine) - Closed Specialty Diagnoses / Procedures Referred By Contac t Referred To Contact Radiology Diagnoses Nonrheumatic aortic valve stenosis Procedures CT Chest wo Contrast (Generic) Louisa Cho PA [facility] [place] [address] [facility] [place] [address] Referral ID Status Reason Start Date Expiration Date V isits Requested Visits Authorized [id number] Closed Specialty Service Requested 01/10/2024 07/11/2025 1 1 Encounter Details Date Type Department Care Team (Latest Contact Info) Description 02/03/2024 7:36 AM EDT - 02/03/2024 8:05 AM EDT Hospital Encounter CT Scan at [facility] [place] [address] Zak Farmer MD [facility] [place] [address] Nonrheumatic aortic valve stenosis Discharge Disposition: Home Social History Tobacco Use Types Packs/Day Years Used Date Smoking Tobacco: Former Cigarettes Smokeless Tobacco: Never Comments:Quit 15 + years ago Alcohol Use Standard Drinks/Week Comments Yes 0 (1 standard drink = 0.6 oz pur e alcohol) rare [facility] Inpatient Questions Answer Date Recorded [...] wo Contrast (Generic) (02/03/2024 7:44 AM EDT) [employer] Signature WORKSTATION ID [id number] RAD Anatomical Region Laterality Modality Chest Computed [...] have questions please contact the health career transition specialist that requested your imaging first. ? [...] who have questions please contactthe health career transition specialist that requested your imaging first. Zak Farmer MD IMG CT ORDERABLES documented in this encounter Visit Diagnoses Diagnosis Nonrheumatic aortic valve stenosis Aortic valve disorders documented in this encounter Care Teams Stagecraft Teacher Relationship Specialty Start Date End Date Vanessa Christian APRN PCP - General Family Medicine 10/21/23 05/26/24 documented as of this encounter
--- OUTSIDE RECORDS SUMMARY | 2024-08-25 10:05 | XMS_ITS | Encounter Summary ---
Author Organization [facility] Address [facility] [place] [address] Care Team Providers Care Audio Technician Name Role Phone Vanessa Christian MAURI Primary Care Provider [phone] Reason for Referral * Diagnostic Test (Routine) - Closed Specialty Diagnoses / Procedures Referred By Contac t Referred To Contact Radiology Diagnoses Nonrheumatic aortic valve stenosis Procedures CT Chest wo Contrast (Generic) Louisa Reid PA [facility] [place] [address] [facility] [place] [address] Referral ID Status Reason Start Date Expiration Date V isits Requested Visits Authorized [id number] Closed Specialty Service Requested 01/10/2024 07/11/2025 1 1 Encounter Details Date Type Department Care Team (Late st Contact Info) Description 01/09/2024 [place] [address] aZk Farmer MD [facility] [place] [address] Nonrheumatic aortic valve stenosis Social History Tobacco [...] wo Contrast (Generic) (02/03/2024 7:44 AM EDT) [employer] WORKSTATION ID [id number] RAD Anatomical Region Laterality Modality Chest Computed [...] signed by: Rogerio Wright MD, [facility] ([phone]), at 02/03/2024 10:00 AM Narrative 02/03/2024 10:00 [...] signed by: Rogerio Wright MD, [facility]([phone]), at 02/03/2024 10:00 AM Zak Farmer MD IMG CT ORDERABLES documented in this encounter Visit Diagnoses Diagnosis Nonrheumatic aortic valve stenosis Aortic valve disorders Nonrheumatic aortic valve stenosis Aortic valve disorders documented in this encounter Care Teams Audio Technician Relationship Specialty Start Date End Date Vanessa Christian APRN PCP - General Family Medicine 10/21/23 05/26/24 documented as of this encounter
--- OUTSIDE RECORDS SUMMARY | 2024-08-25 10:05 | XMS_ITS | Encounter Summary ---
Author Organization [facility] [place] [address] Care Team Providers Care Devops Consultant Name Role Phone Vanessa Christian APRN Primary Care Provider [phone] Encounter Details Date Type Department Care Team (Late st Contact Info) Description 10/21/2023 Abstract Cardiology at [address] [place] [phone] Adam Mayes RN Social History Tobacco Use [...] on filedocumented in this encounter Care Teams Devops Consultant Relationship Specialty Start Date End Date Vanessa Christian APRN PCP - General Family Medicine 10/21/23 05/26/24 documented as of this encounter
--- OUTSIDE RECORDS SUMMARY | 2024-08-25 10:05 | XMS_ITS | Encounter Summary ---
Author Organization [facility] [place] [address] Care Team Providers Care Traveling Buyer Name Role Phone Vanessa Christian APRN Primary Care Provider [phone] Encounter Details Date Type Department Care Team [...] on filedocumented in this encounter Care Teams Traveling Buyer Relationship Specialty Start Date End Date Vanessa Christian APRN PCP - General Family Medicine 10/21/23 05/26/24 documented as of this encounter
--- OUTSIDE RECORDS SUMMARY | 2024-08-25 10:05 | XMS_ITS | Encounter Summary ---
[place] [address] Care Team Providers Care Screener Operator Name Role Phone Victor M Lafleur MD Primary Care Provider Reason for Visit * Reason Onset Date Comments Referral 09/20/2023 Encounter Details Date Type Department Care Team (Late st Contact Info) Description 09/20/2023 Telephone Cardiology at [address] [address] Karen Billy, instrument assembly supervisor Social History Tobacco Use Types Packs/Day [...] 10:20 AM EST ----- Message from Dennise Sonwden sent at 09/20/2023 10:15 AM EST ----- Cardiology referral and records scanned. documented in this encounter Plan of Treatment Not on file documented as of this encounter Visit Diagnoses Not on filedocumented in this encounter Care Teams Screener Operator Relationship Specialty Start Date End Date Victor M Lafleur MD PCP - General 10/02/13 10/20/23 documented as of this encounter
--- OUTSIDE RECORDS SUMMARY | 2024-08-25 10:05 | XMS_ITS | Encounter Summary ---
Author Organization [facility] Address [facility] [place] [address] Care Team Providers Care Site Inspector Name Role Phone Vanessa Christian MAURI Primary Care Provider [phone] Encounter Details Date Type Department Care Team (Latest Contact Info) Description 01/09/2024 3:02 PM EDT - 01/09/2024 11:59 PM EDT Hospital Encounter XRay at [address] [place] [address] Zak Farmer MD [facility] [place] [address] Nonrheumatic aortic valve stenosis Discharge Disposition: Home [...] documented in this encounter Care Teams Site Inspector Relationship Specialty Start Date End Date Vanessa Christian APRN PCP - General Family Medicine 10/21/23 05/26/24 documented as of this encounter
--- OUTSIDE RECORDS SUMMARY | 2024-08-25 10:05 | XMS_ITS | Encounter Summary ---
Author Organization [facility] [place] [address] Care Team Providers Care Cryptographic Vulnerability Analyst Name Role Phone Vanessa Christian APRN [...] on filedocumented in this encounter Care Teams Cryptographic Vulnerability Analyst Relationship Specialty Start Date End Date Vanessa Christian APRN PCP - General Family Medicine 10/21/23 05/26/24 documented as of this encounter
[2024-08-25 10:12] VITALS: BP 127/62; PULSE 56
--- OUTSIDE RECORDS SUMMARY | 2024-08-27 10:06 | XMS_ITS | Encounter Summary ---
Author Organization [facility] Address [facility] [place] [address] Care Team Providers Care Television Service Engineer Name Role Phone Vanessa Christian MAURI Primary Care Provider [phone] Encounter Details Date Type Department Care Team (Late st Contact Info) Description 03/12/2024 2:40 PM EDT Office [place] [phone] Zak Farmer MD [facility] [place] [address] Coronary artery disease, unspecified vessel or lesion type, unspecified whether angina present, unspecified whether [place]bi-sha shoshone or transplanted heart Social History Tobacco Use Types Packs/Day Years Used Date Smoking Tobacco: Former Cigarettes Smokeless Tobacco: Never Comments:Quit 15 + years ago Alcohol Use Standard Drinks/Week Comments Yes 0 (1 standard drink = 0.6 oz pur e alcohol) rare [facility] Utilities Answer Date Recorded In the past 12 months has e [employer], gas, oil, or water [employer] threatened to shut off services in your [...] 2:40 PM EDT To: MD Vanessa Coles, SNUFF GRINDER Re; Karlos Santa ( 1960) We had [...] office. Best personal regards, Zak Farmer MD [phone] documented in this encounter Plan of Treatment Not on file documented as of this encounter Procedures Procedure Name Priority Date/Time Associated Diagnosis Comments EKG 12-LEAD Routine 03/12/2024 2:35 PM EDT Coronary artery disease, unspecified vessel or lesion type, unspecified whether angina present, unspecified whether timbi-sha shoshone or transplanted heart documented in this encounter Results * EKG 12 Lead (03/12/2024 2:35 PM EDT) Ventricular rate 59 BPM MUSE SYSTEM Atrial Rate 59 BPM MUSE SYSTEM P-R Interval 190 ms MUSE SYSTEM QRS Duration 92 ms MUSE SYSTEM Q-T Interval 406 ms MUSE SYSTEM QTC Calculated (Bezet) 401 ms MUSE SYSTEM Calculated P [place] -12 degrees MUSE SYSTEM Calculated R [place] 24 degrees MUSE SYSTEM Calculated T [place] 74 degrees MUSE SYSTEM INTERPRETATION Sinus bradycardia T wave abnormality, consider anterior ischemia Abnormal ECG When compared with ECG of 17-FEB-2024 13:24, [place] interval has decreased T wave inversion now evident in Anterior leads Confirmed by Paul Guzman ([id number]) on 03/15/2024 8:36:23 AM MUSE SYSTEM 03/12/2024 2:35 PM EDT 03/15/2024 8:36 AM EDT Zak Farmer MD ECG ORDERABLES [employer] documented in this encounter Visit Diagnoses Diagnosis Coronary artery disease, unspecified vessel or lesion type, unspecified whether angina present, unspecified whether [place]bi-sha shoshone or transplanted heart documented in this encounter Care Teams Television Service Engineer Relationship Specialty Start Date End Date Vanessa Christian, MAURI PCP - General Family Medicine 10/21/23 05/26/24 documented as of this encounter
--- OUTSIDE RECORDS SUMMARY | 2024-08-27 10:06 | XMS_ITS | Referral Summary ---
Author Organization [facility] Address [address] [place] [address] Care Team Providers Care Cloth Dye Range Operator Name Role Phone Vanessa Christian Lane MONCADA Primary Care Provider [phone] Social History Tobacco Use Types Packs/Day Years Used Date Smoking Tobacco: Never Assessed Sex and Gender Information Value Date Recorded Sex Assigned at Not on file Legal Sex Male 22:02 EST Gender Identity Not on file Sexual Orientation Not on file Plan of Treatment Not on file Insurance R Care Teams Cloth Dye Range Operator Relationship Specialty Start Date End Date Vanessa Christian, ANTWAN [address] [place] [phone] PCP - General Family Medicine - Primary Care 10/07/23
--- OUTSIDE RECORDS SUMMARY | 2024-08-27 10:06 | XMS_ITS | Clinical Summary ---
Author Organization [facility] Address [facility] [place] [address] Care Team Providers Care Industrial Gas Servicer Name Role Phone Vanessa Christian Lane DOTSON Primary Care Provider [phone] Allergies No known active allergies Medications Medication [...] the meantime will refer to SHT at [facility] for further evaluation. Logistics and preliminary review of TONY were reviewed with patient. - Refer to SHT Hypertension 08/14/2023 Resolved Problems Problem Noted Date Diagnosed Date Resolved Date Nevus of face 09/26/2023 05/27/2024 Overview (09/26/2023): Right gnosticist Chest pressure 08/14/2023 10/21/2023 SILVA (dyspnea on exertion) 08/14/2023 HLD (hyperlipidemia) 08/14/2023 024 Encounters Date Type Department Care Team Description 05/27/2024 11:00 AM EDT Office Visit Cardiology at [address] [place] [address] Neftali Ernandez MD ASCVD (arteriosclerotic [...] PCV) 2024 Medical Devices Implanted Type Area Sample Steamer Device Identifier Shelf Expiration Date Model / Serial / Lot Cable,Cut,Edg ,Blnt,Ss,3tpr ([id number]) - [id number] Implanted:Qty : 1 on 02/17/2024 by Zak Farmer MD at [facility] IMPLANTS Midline: Chest [employer] - [id number] 09/02/2028 [id number] / / [id number] Valve Coronary Aortic 23mm Tissue Trnscath [employer] Inspiris ([id number]) ([employer]) - [id number] Implanted:Qty : 1 on 02/17/2024 by Zak Farmer MD at [facility] IMPLANTS Heart [employer] - [employer] 09/15/2027 [id number] 23MM / [id number] / Procedures Procedure Name Priority Date/Time Associated [...] (Bezet) 367 ms MUSE SYSTEM Calculated P [place] 12 degrees MUSE SYSTEM Calculated R [place] 27 degrees MUSE SYSTEM Calculated T [place] 62 degrees MUSE SYSTEM INTERPRETATION Sinus bradycardia with 1st degree A-V block Otherwise normal ECG When compared with ECG of 12-MAR-2024 14:35, T wave inversion no longer evident in Anterior leads Confirmed by MD Oma, Neftali ([id number]) on 06/01/2024 8:36:17 AM MUSE SYSTEM 05/27/2024 11:2 4 AM EDT 06/01/2024 8:36 AM EDT Unknown ECG ORDERABLES Performing Organization Address City/State/[facility] Co de Phone Number MUSE SYSTEM from [...] Status decision made by: Patient Care Teams Industrial Gas Servicer Relationship Specialty Start Date End Date Vanessa Christian APRN [address] [place] [address] PCP - General Family Medicine 05/27/24
--- OUTSIDE RECORDS SUMMARY | 2024-08-27 10:06 | XMS_ITS | Encounter Summary ---
Author Organization [facility] Address [address] [place] [address] Care Team Providers Care Body Technician/Painter Name Role Phone Filidayna Vanessa Dayna MONCADA Primary Care Provider [phone] Encounter Details Date Type Department Care Team (Late st Contact Info) Description 10/24/2023 Lab Requisition [facility] Pathology & Laboratory Medicine - [address] [address] Oscar Nichole MD [address] [place] [address] [phone] Factitial dermatitis Social History Tobacco Use Types [...] management options, if applicable. 10/28/2023 11:24 EST [facility] Final Diagnosis A. SKIN OF BUDDHISM, LEFT, SHAVE BIOPSY: - Seborrheic keratosis, pigmented. 10/28/2023 11:24 EST [facility] Attestation By the signature below, the attending physician certifies that they have 1) personally conducted a gross and/or microscopic examination of the described specimen(s), and/or personally interpreted the results of laboratory testing of the described specimen(s), and 2) personally rendered or confirmed the above diagnosis. 10/28/2023 11:24 [facility] at 1124 Microscopic Description The stratum corneum is thickened by compact and basketweave orthokeratosis with formation of horn pseudocysts. The epidermis is acanthotic with formation of broad and anastomosing trabeculae. The trabeculae are composed of basaloid keratinocytes with round uniform nuclei. The keratinocytes have a variable amount of melanin pigment. 10/28/2023 11:24 [facility] Clinical History Pigmented 2 cm patch; clinical diagnosis code: L98.1 10/28/2023 11:24 [facility] Gross Description A. Received in formalin labelled with proper patient identification (initials P, A) and left hinduism is a shave biopsy of an irregular [...] A3. Nora Anderson 10/25/2023 8:47 10/28/2023 11:24 [facility] Performing Lab [facility] 10/28/2023 11:24 [facility] Scanned Images 10/28/2023 11:24 [facility] Tissue SPECIMEN FROM SKIN / Unknown 10/24/2023 14:30 EST 10/24/2023 22:04 EST us Oscar Nichole MD PATHOLOGY ORDERABLES Final Resul t [facility] [address] [place] [address] documented in this encounter Visit Diagnoses Diagnosis Factitial dermatitis Dermatitis factitia (artefacta) documented in this encounter Care Teams Body Technician/Painter Relationship Specialty Start Date End Date Vanessa Christian NP [address] [place] [address] PCP - General Family Medicine - Primary Care 10/07/23 documented as of this encounter
--- OUTSIDE RECORDS SUMMARY | 2024-08-27 10:06 | XMS_ITS | Encounter Summary ---
Author Organization [facility] Address [facility] [place] [address] Care Team Providers Care Machine Shop Worker Name Role Phone Vanessa Crhistian MAURI Primary Care Provider [phone] Encounter Details Date Type Department Care Team [...] filedocumented in this encounter Care Teams Machine Shop Worker Relationship Specialty Start Date End Date Vanessa Christian APRN PCP - General Family Medicine 10/21/23 05/26/24 documented as of this encounter
--- OUTSIDE RECORDS SUMMARY | 2024-08-27 10:06 | XMS_ITS | Encounter Summary ---
Author Organization [facility] Address [facility] [place] [address] Care Team Providers Care Interventional Radiology Rn Name Role Phone Vanessa Christian MAURI Primary Care Provider [phone] Encounter Details Date Type Department Care Team (Latest Contact Info) Description 03/12/2024 1:30 PM EDT - 03/12/2024 11:59 PM EDT Hospital Encounter XRay at [address] [place] [address] Coronary artery disease, unspecified vessel or lesion type, unspecified whether angina present, unspecified whether muscogee or transplanted heart Discharge Disposition: Home Social History Tobacco Use Types Packs/Day Years Used Date Smoking Tobacco: Former Cigarettes Smokeless Tobacco: Never Comments:Quit 15 + years ago Alcohol Use Standard Drinks/Week Comments Yes 0 (1 standard drink = 0.6 oz pur e alcohol) rare [facility] Utilities Answer Date Recorded In the past 12 months has e [employer], gas, oil, or water [employer] threatened to shut off services in your [...] type, unspecified whether angina present, unspecified whether muscogee or transplanted heart documented in this encounter Results * XR Chest PA & Lateral (Generic) (03/12/2024 1:42 PM EDT) WORKSTATION ID [id number] RAD Anatomical Region Laterality Modality Chest N/A [...] have questions please contact the health career law clerk that requested your imaging first. ? 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 Zak Farmer MD IMG DX ORDERABLES documented in this encounter Visit Diagnoses Diagnosis Coronary artery disease, unspecified vessel or lesion type, unspecified whether angina present, unspecified whether muscogee or transplanted heart documented in this encounter Care Teams Interventional Radiology Rn Relationship Specialty Start Date End Date Vanessa Christian APRN PCP - General Family Medicine 10/21/23 05/26/24 documented as of this encounter
--- OUTSIDE RECORDS SUMMARY | 2024-08-27 10:06 | XMS_ITS | Encounter Summary ---
Author Organization [facility] Address [facility] [place] [address] Care Team Providers Care Fuel Efficient Automobile Designer Name Role Phone Vanessa Christian MAURI Primary Care Provider [phone] Encounter Details Date Type Department Care Team (Latest Contact Info) Description 05/27/2024 Travel Social History Tobacco Use Types Packs/Day Years Used Date Smoking Tobacco: Former Cigarettes Smokeless Tobacco: Never Comments:Quit 15 + years ago Alcohol Use Standard Drinks/Week Comments Yes 0 (1 standard drink = 0.6 oz pur e alcohol) rare [facility] Utilities Answer Date Recorded In [...] filedocumented in this encounter Care Teams Fuel Efficient Automobile Designer Relationship Specialty Start Date End Date Vanessa Christian APRN [address] [place] [address] PCP - General Family Medicine 05/27/24 documented as of this encounter
--- OUTSIDE RECORDS SUMMARY | 2024-08-27 10:06 | XMS_ITS | Clinical Summary ---
Author Organization [facility] Address [address] [place] [address] Care Team Providers Care Vessel Traffic Officer Name Role Phone Filidayna Vanessa Sherman NP Primary Care Provider [phone] Social History Tobacco Use Types Packs/Day Years [...] 75+ series) 2034 Insurance [employer] Care Teams Vessel Traffic Officer Relationship Specialty Start Date End Date Vanessa Christian, ANTWAN [address] [place] [phone] PCP - General Family Medicine - Primary Care 10/07/23
--- OUTSIDE RECORDS SUMMARY | 2024-08-27 10:06 | XMS_ITS | Encounter Summary ---
Author Organization [facility] Address [facility] [place] [address] Care Team Providers Care Custom Shoemaker Name Role Phone Vanessa Christian MAURI Primary Care Provider [phone] Encounter Details Date Type Department Care Team (Latest Contact Info) Description 05/20/2024 Travel Social History Tobacco Use Types Packs/Day Years Used Date Smoking Tobacco: Former Cigarettes Smokeless Tobacco: Never Comments:Quit 15 + years ago Alcohol Use Standard Drinks/Week Comments Yes 0 (1 standard drink = 0.6 oz pur e alcohol) rare [facility] Utilities Answer Date Recorded [...] on filedocumented in this encounter Care Teams Custom Shoemaker Relationship Specialty Start Date End Date Vanessa Christian APRN PCP - General Family Medicine 10/21/23 05/26/24 documented as of this encounter
--- OUTSIDE RECORDS SUMMARY | 2024-08-27 10:06 | XMS_ITS | Encounter Summary ---
Author Organization [facility] Address [facility] [place] [address] Care Team Providers Care Labor Conciliator Name Role Phone Vanessa Christian Lane DOTSON Primary Care Provider [phone] Reason for Visit * Reason Comments Coronary Artery Disease Aortic Stenosis Encounter Details Date Type Department Care Team (Latest Contact Info) Description 05/27/2024 11:00 AM EDT Office Visit Cardiology at [address] [phone] Neftali Ernandez MD [facility] [place] [address] ASCVD (arteriosclerotic cardiovascular disease); Nonrheumatic aortic valve stenosis Social History Tobacco Use Types Packs/Day Years Used Date Smoking Tobacco: Former Cigarettes Smokeless Tobacco: Never Comments:Quit 15 + years ago Alcohol Use Standard Drinks/Week Comments Yes 0 (1 standard drink = 0.6 oz pur e alcohol) rare [facility] Utilities Answer Date Recorded In the past 12 months has e [employer], gas, oil, or water [employer] threatened to shut off services in your [...] documented in this encounter Care Teams Labor Conciliator Relationship Specialty Start Date End Date Vanessa Christian, MAURI [address] [place] [address] PCP - General Family Medicine 05/27/24 documented as of this encounter
--- OUTSIDE RECORDS SUMMARY | 2024-08-27 10:06 | XMS_ITS | Encounter Summary ---
Author Organization [facility] Address [facility] [place] [address] Care Team Providers Care Gyroscopic Engineering Technician Name Role Phone Gino Vanessa Lane DOTSON Primary Care Provider [phone] Encounter Details Date Type Department Care Team (Late st Contact Info) Description 02/24/2024 Orders Only Cardiac Surgery [facility] [place] [phone] Trudi Lester APRN [facility] [place] [address] Social History Tobacco Use Types Packs/Day Years Used Date Smoking Tobacco: Former Cigarettes Smokeless Tobacco: Never Comments:Quit 15 + years ago Alcohol Use Standard Drinks/Week Comments Yes 0 (1 standard drink = 0.6 oz pur e alcohol) rare [facility] Utilities Answer Date Recorded In the past 12 months has e [email or web address], gas, oil, or water [employer] threatened to shut off services in [...] on filedocumented in this encounter Care Teams Gyroscopic Engineering Technician Relationship Specialty Start Date End Date Vanessa Christian APRN PCP - General Family Medicine 10/21/23 05/26/24 documented as of this encounter
--- OUTSIDE RECORDS SUMMARY | 2024-08-27 10:07 | XMS_ITS | Encounter Summary ---
[place] [address] Care Team Providers Care Technical Support Manager Name Role Phone Aparna Jordan MAURI Primary Care Provider [phone] Reason for Referral * Diagnostic Test (Routine) - New Request Specialty Diagnoses / Procedures Referred By Contac t Referred To Contact Cardiology Diagnoses S/P AVR Procedures Echocardiogram Transthoracic Neftali Menon PA [facility] [place] [address] [facility] [place] [address] Referral ID Status Reason Start Date Expiration Date Visits Requested Visits Authorized [id number] New Request Specialty Service Requested 02/24/2024 02/23/2025 1 1 * Consultation (Routine) - Closed Specialty Diagnoses / Procedures Referred By Contac t Referred To Contact Cardiology Diagnoses S/P AVR Hayder Graham MD [facility] [place] [address] Cardiac Rehab, [facility] [address] [place] [address] [place] [address] Referral ID Status Reason Start Date Expiration Date V isits Requested Visits Authorized [id number] Closed Consult, Test & Treat 02/24/2024 08/22/2024 36 36 * Home Health Care (Routine) - Closed Specialty Diagnoses / Procedures Referred By Sixto mendoza Referred To Contact Diagnoses S/P AVR Hayder Graham MD [facility] [place] [address] Referral ID Status Reason Start Date Expiration Date V isits Requested Visits Authorized [id number] Closed Consult, Test & Treat 02/24/2024 08/22/2024 [...] ARTERIAL GRAFT (WRVU 7.93) Hayder Graham MD [facility] [place] [address] [facility] Referral ID Status Reason Start Date Expiration Date Visits Re quested Visits Authorized [id number] 1 1 Encounter Details Date Type Department Care Team (Latest Contact Info) Description 02/17/2024 5:43 AM EDT - 02/24/2024 11:23 AM EDT Hospital Encounter Heart and Vascular Unit Level 4 [place] [address] Hayder Graham MD [facility] [place] [address] S/P AVR (Primary Dx); Aortic valve stenosis, etiology of cardiac valve disease unspecified Discharge Disposition: Home with VNA Social History Tobacco Use Types Packs/Day Years Used Date Smoking Tobacco: Former Cigarettes Smokeless Tobacco: Never Comments:Quit 15 + years ago Alcohol Use Standard Drinks/Week Comments Yes 0 (1 standard drink = 0.6 oz pur e alcohol) rare [facility] Utilities Answer Date Recorded In the [...] 1-2 weeks. Patient to follow up with Hide Worker, Neftali Ernandez MD , in 2 weeks. Patient to follow up with Cardiac Surgeon, Dr. Hayder Graham, with a chest x-ray, EKG, and Echo. 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 Right taoist Past Surgical History: Procedure Laterality Date PRO CABG, ARTERIAL, SINGLE N/A 02/17/2024 @CABG, USING ARTERIAL GRAFT;SINGLE ARTERIAL GRAFT (WRVU 33.75) performed by Hayder Graham MD at [facility] MAIN OR PRO CABG, ARTERY-VEIN, TWO N/A 02/17/2024 @CABG, TWO VENOUS GRAFTS & ARTERIAL GRAFT (WRVU 7.93) performed by Hayder Graham MD at [facility] MAIN OR PRO ENDOSCOPY W/VIDEO-ASST VEIN HARVEST, CABG Left 02/17/2024 ENDOSCOPIC HARVEST VEIN(S) FOR CABG (WRVU 0.31) performed by Hayder Graham MD at [facility] MAIN OR PRO REPLACEMENT PROSTHETIC AORTIC VALVE OPEN W CARDIOPULMONARY BYPASS HOMOGRF/STENT N/A 02/17/2024 @REPLACE AORTIC VALVE, OPEN, W\CPB, W\PROSTHETIC VALVE (WRVU 41.32) performed by Hayder Graham MD at [facility] MAIN OR Prior To Admission [...] insufficiency. He has glaucoma. He used to Sportistic until about 15 years ago. He has undergone prior herniorrhaphy. 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 Major Procedures/Operations: 02/17/24 s/p avr/cabgx3 CABG x 3 JOSE->LAD SVG->dRCA SVG->OM1 EVH from LLE AVR with a 23 mm Inspiris Bioprosthesis Hospital Course: Karlos Garcia was admitted to [facility] on 02/17/2024 via the Same Day [...] Hayder Graham and/or the Cardiac Surgery Physician Stripping Shovel Oiler Team may be reached at . Antibiotic [...] Please refer to the card with the [place] Heart Association Guidelines for more information. You [...] Dr. Hayder Graham. You may use a [place] Track or treadmill but avoid any [...] friends, go to a movie, go to buddhist, etc. Heavy activities: No hunting, skiing, jogging, [...] should resume a low fat, low cholesterol, [place] Heart Association Diet. Driving: No driving until [...] while being managed by your PCP and/or Hide Worker. For future medication refills, please refer to your PCP and/or Hide Worker after your discharge from our service. Thank you REMOVE CHEST TUBE SUTURES ON OR AFTER 03/02/24 Home oxygen therapy: N/A Follow up appointments: You should follow up with your PCP, Aparna Jordan APRN, in 1-2 weeks. Our office will schedule an appointment with your Hide Worker, Neftali Ernandez MD , in 2 weeks. You have an appointment with your Cardiac Surgeon, Dr. Hayder Graham, 4 weeks with a chest x-ray, EKG, and Echo before your appointment. Cardiac Rehabilitation: Karlos Garcia was seen regarding participation in the outpatient Phase 2Cardiac Rehabilitation at [facility]. The patient agrees to a referral to this program. The referral will be sent at discharge and the patient should be contacted by the Program within 1- 2 weeks from discharge. Future Appointments and Orders Future Orders Complete By Expires Echocardiogram Transthoracic [52449 CPT(R)] 03/26/2024 09/25/2024 Process Instructions: Scheduling Instructions: Questions: Where will study be performed?: [facility] Does the patient have Congenital Heart Disease?: Does patient require sedation?: Sedation rationale: XR Chest PA & Lateral (Generic) [01787 15247 Custom] 03/26/2024 09/25/2024 Process Instructions: Scheduling Instructions: Questions: Portable exam?: Reason for exam and clinical history: s/p avr/cabg Clinical information / jerome questions for radiologist: Stat read required?: Date of injury if applicable: Requested Time: Where will study be performed?: [facility] Radiology Referral to Cardiac Rehab [LLU121 Custom] As directed Process Instructions: If no progress note charted, please enter Clinical details in comments. Scheduling Instructions: Questions: My question or request is: s/p AVR/CABG. Cardiac rehab at [facility]. Referral to Home Health [REF34 Custom] As directed Process Instructions: If no progress note charted, please enter Clinical details in comments. Scheduling Instructions: Comments: Please evaluate Karlos Garcia for admission to Home Health. [address] Phone Number: Date of : 1960 Inpatient DOCUMENTATION FOR VNA SERVICES (INCLUDING THOSE PATIENTS WITH MEDICARE COVERAGE REQUIRING HOME VNA SERVICES AND/OR HOSPICE SERVICES) PATIENT'S LOCATION: Karlos Garcia [address] [employer] [phone] Operations Scheduler's Name: self/family In discussion with the attending physician, it is certified that this patient is under their care and that they, or a Nurse Practitioner, or Physician Stripping Shovel Oiler who is working directly with them, hada [...] for services as follows: HOME HEALTH AGENCY: [facility]. [address] [place] [address] RN orders: Cardiopulmonary assessment, incisional assessment, assess [...] issues please call the Cardiology Office at [phone] FOR MEDICARE ONLY: (please delete this section [...] As above. Signed: NEFTALI MENON PA-C [facility] [address] FAX [phone] Date: 02/24/2024 CC: Aparna Jordan, MAURI Jordan, Aparna Sherman APRN [address] [place] [address] documented in this encounter Discharge Instructions * [...] Hayder Graham and/or the Cardiac Surgery Physician Stripping Shovel Oiler Team may be reached at . Antibiotic [...] Please refer to the card with the [place] Heart Association Guidelines for more information. You [...] Dr. Hayder Graham. You may use a [place] Track or treadmill but avoid any [...] friends, go to a movie, go to buddhist, etc. Heavy activities: No hunting, skiing, jogging, [...] should resume a low fat, low cholesterol, [place] Heart Association Diet. Driving: No driving until [...] while being managed by your PCP and/or Hide Worker. For future medication refills, please refer to your PCP and/or Hide Worker after your discharge from our service. Thank you REMOVE CHEST TUBE SUTURES ON OR AFTER 03/02/24 Home oxygen therapy: N/A Follow up appointments: You should follow up with your PCP, Aparna Jordan APRN, in 1-2 weeks. Our office will schedule an appointment with your Hide Worker, Neftali Ernandez MD , in 2 weeks. You have an appointment with your Cardiac Surgeon, Dr. Hayder Graham, 4 weeks with a chest x-ray, EKG, and Echo before your appointment. Cardiac Rehabilitation: Karlos Garcia was seen regarding participation in the outpatient Phase 2Cardiac Rehabilitation at [facility]. The patient agrees to a [...] 0600 and on the weekends please page [phone]. * Eric Barahona PA - 02/23/2024 9:27 [...] 0600 and on the weekends please page [phone]. * Tiffanie Owens PTA - 02/22/2024 2:48 [...] d/c for 10 days. 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 He drives. He works Precautions/Special Considerations: [...] LRAD and supervision Time IN / OUT: 1618-1951 Total Time: 30 minutes; TEFx2 Tiffanie Owens Pager: [phone] Physical Therapy Inpatient Rehabilitation Department * Romeo [...] 0600 and on the weekends please page [phone]. * Kelley Hinson, INFORMATICS APPLICATION ANALYST - 02/21/2024 10:15 AM EDT Physical [...] d/c for 10 days. 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 He drives. He works Precautions/Special Considerations: [...] LRAD and supervision Time IN / OUT: 5444-2070 Total Time: 25 minutes; TEF 2 Kelley Hinson INFORMATICS APPLICATION ANALYST Pager: [phone] Physical Therapy Inpatient Rehabilitation Department * Louisa [...] 0600 and on the weekends please page [phone]. * Kelley Hinson PTA - 02/20/2024 3:32 PM EDT 02/20/24 8660 Evaluation & Treatment Document Type contact Total Minutes, Physical Therapy 0 Comment, Session Not Performed Checked in w/ pt this PM for ongoing PT services, pt politely declined, stating he had been dealing w/ nausea all day, made plan to see him tomorrow morning, will f/u at that time Kelley Hinson PTA Pager: [phone] Physical Therapy Inpatient Rehab Department * Louisa [...] 0600 and on the weekends please page [phone]. * Maris Benavides, PT - 02/19/2024 11:22 [...] d/c for 10 days. 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 He drives. He works. Precautions/Special Considerations: [...] outlined inthis evaluation. MARIS BENAVIDES, PT Pager: [phone] Physical Therapy Inpatient Rehabilitation Department Time IN / OUT: 0153-9281 Total Time: 38 (eval) minutes; * Antonio [...] 0600 and on the weekends please page [phone]. * Minnie Begum PA - 02/18/2024 8:25 [...] 0600 and on the weekends please page [phone]. * Kim Ha RCP - 02/17/2024 2:25 [...] plan since last visit. Hayder Graham MD [phone] Source Note - Hayder Graham MD - [...] insufficiency. He has glaucoma. He used to Sportistic until about 15 years ago. He has [...] given written informed consent. Hayder Graham MD [phone] * Hayder Graham MD - 02/17/2024 7:00 [...] given written informed consent. Hayder Graham MD [phone] documented in this encounter Miscellaneous Notes * [...] for follow-up Home Health & Hospice, [address] [place] [address] Cardiac Rehab, [facility] [address] [address] Transportation: family or friend will provide Functional status prior to admission: Independent Home Environment: Others in the home: alone. Current Living Arrangements: home/apartment/condo. Accessibility Concerns:a few steps to enter 1 floor home. Current Functional Ability: Assistive Person and Equipment DME used at home: none DME Needed at Discharge: N/A Patient is insured through: Primary Insurance: [facility] Payor: [facility] / Plan: [facility] PPO / Product Type: [...] pain managed with scheduled Tylenol. Worked with [employer]. Ambulated in the roque multiple times during [...] anticipated Patient is insured through: Primary Insurance: [facility] [facility] Payor: [facility] / Plan: [facility] PPO / Product Type: [...] Services: Physical Therapy, Registered Nurse Agency Referrals: [facility] [address] [address] Transportation: family or friend will provide Barriers to discharge: Discharge planning Plan going forward: Service Care Management will continue to follow and assist with discharge planning and coordination of care as indicated. Anticipated Date of Discharge: 02/22/2024 Rhett Bell RN RN/CM - Cellphone: [phone] Pager: [phone] Covering Service RN/CM * Plan of Care [...] - 02/19/2024 10:44 AM EDT [facility] Karlos Garcia was seen today regarding participation in the outpatient Phase 2 Cardiac Rehabilitation at [facility]. 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 (Only good for 180 days) Any patient receiving care in [place] must abide by [place] law. The [...] (i) The agent with financial power of litigation attorney or a conservator appointed in [...] In the past 12 months has the [employer], gas, oil, or water YouLike threatened to shut off services in your [...] [address] [facility] [address] Physical address: [address] [facility], [address] Social & Family Supports: All names listed [...] none noted Health/Prescription Coverage: Primary Insurance: [facility] Payor: [facility] / Plan: [facility] PPO / Product Type: *No Product type* / Secondary Insurance: N/A ; Prescription Coverage: Yes Preferred Pharmacy: [id number] AT [facility] & [address] [address] Status: Patient is a : No Primary Care Provider confirmed: Aparna Jordan, FISHING TACKLE REPAIRER [phone] Patient/Caregiver Goals of Treatment: dc to home Potential Needs for Transition of Care: home health care Agency Referrals: I have met with the patient to: discuss discharge planning needs. provide the [facility] Office of Care Management letter from the [employer] Curtain Machine Tender pertaining to rehab referrals. provide a letter describing our affiliations within the [facility] and educate about their right to choose where referrals are sent. provide a list of Home Health Agencies / Durable Medical Equipment vendors which serve their preferred geographic area. provided patient with [facility] Star Quality Rating handout. They have requested referrals to: [facility]. [address] [place] [address] Note routed to a Pocketbook Maker who will communicate referrals to facilities [...] Reina Greene RN CM, BSN, CMGT- Ext [phone] * Plan of Care - Binta Trinidad [...] Operative Note Patient Name: Karlos Garcia DOB: [id number] MR#: [id number] Case Date: 02/17/2024 Surgeon: Surgeon(s) and Role: * Hayder Graham MD - Primary * Neftali Menon PA - Physician Stripping Shovel Oiler Preoperative diagnosis: CAD Postoperative diagnosis: CAD, intraoperative [...] - 02/17/2024 8:20 AM EDT [facility] Operative Note Patient Name: Karlos Garcia : [id number] MR#: [id number] Case Date: 02/17/2024 Surgeon: Surgeons and Role: * Hayder Graham MD - Primary * Neftali Menon PA - Physician Stripping Shovel Oiler Preoperative diagnosis: CAD Postoperative diagnosis: CAD, intraoperative [...] Aortic Valve Open W Cardiopulmonary Bypass Homogrf/Stent (05030) Yes 02/17/2024 7:28 AM EDT CAD Cabg, Artery-Vein, Two (78361) Yes 02/17/2024 7:28 AM EDT CAD Cabg, Arterial, Single (38334) Yes 02/17/2024 7:28 AM EDT CAD Endoscopy W/Video-Asst Vein Ethel, Cabg (68032) Yes 02/17/2024 7:28 AM EDT CAD POCT [...] CHEMISTRY ORDERABLE S [facility] [place] [address] * (ABNORMAL) Basic Metabolic Panel (non-fasting) (02/23/2024 [...] MD CHEMISTRY ORDERABLES [facility] [place] [address] * Potassium (02/22/2024 4:30 AM EDT) [facility] Signature Potassium 3.5 3.5 - 5.0 mmol/L GRACE [...] CHEMISTRY ORDERABLE S [facility] [place] [address] * (ABNORMAL) Basic Metabolic Panel (non-fasting) (02/21/2024 [...] Carpio MD CHEMISTRY ORDERABLES Performing Organization Address City/[facility]/ZIP Co de Phone Number [facility] [place] [address] * Lactate, whole blood, send to lab ([facility]) (02/21/2024 9:45 AM EDT) [facility] Lactate WB 2.0 0.5 - 2.2 mmol/L [facility] Blood 02/21/2024 9:45 AM EDT 02/21/2024 9:52 AM EDT Narrative Resulting Agency Comment Spec In Lab Hayder Graham MD CHEMISTRY ORDERABLE S Performing Organization Address [facility] Co de Phone Number [facility] [place] [address] * (ABNORMAL) Hepatic Function Panel (02/21/2024 9:45 AM EDT) [facility] Protein, Total 5.7(L) 6.1 - 8.0 [...] MD CHEMISTRY ORDERABLE S Performing Organization Address City/[facility]/ZIP Co de Phone Number [facility] [place] [address] * Lipase (02/21/2024 9:45 AM EDT) [facility] Lipase 56 0 - 60 unit/L [facility] Blood 02/21/2024 9:45 AM EDT 02/21/2024 9:52 AM EDT Narrative Resulting Agency Comment Spec In Lab Hayder Graham MD CHEMISTRY ORDERABLE S Performing Organization Address [facility] Co de Phone Number [facility] [place] [address] * Amylase (02/21/2024 9:45 AM EDT) Amylase 69 28 - 100 unit/L [facility] Blood 02/21/2024 9:45 AM EDT 02/21/2024 9:52 AM EDT Narrative Resulting Agency Comment Spec In Lab Hayder Graham MD CHEMISTRY ORDERABLE S Performing Organization Address [facility] de Phone Number [facility] [place] [address] * Potassium (02/21/2024 3:08 AM EDT) [facility] Potassium 3.8 3.5 - 5.0 mmol/L GRACE [...] Performing Organization Address [facility] Co de Phone Number [facility] [place] [address] * XR Chest PA & Lateral (Generic) (02/20/2024 10:19 AM EDT) WORKSTATION ID [id number] DH RAD Anatomical Region Laterality Modality Chest N/A Digital Radiogra phy Impressions 02/20/2024 1:11 PM EDT Small pleural effusions. No pneumothorax Thank you for letting us participate in the care of this patient. ??If you are a health care provider and have any questions regarding this report, please contact the number below. ??For patients who have questions please contact the health career resource specialist that requested your imaging first. ? Narrative 02/20/2024 1:11 PM EDT EXAMINATION: XR CHEST PA AND LATERAL (GENERIC) CLINICAL HISTORY: s/p AVR/CABGx3 TECHNIQUE: PA and lateral views of the chest COMPARISON: 02/17/2024 FINDINGS: Support devices: Interval removal of [place]-Kaila catheter, endotracheal tube and mediastinal chest tubes The cardiac silhouette is stable status post median sternotomy, CABG and aortic valve replacement. There are small pleural effusions. No pneumothorax. Procedure Note Rogerio Cruz MD - 02/20/2024 EXAMINATION: XR CHEST PA AND LATERAL (GENERIC) CLINICAL HISTORY: s/p AVR/CABGx3 TECHNIQUE: PA and lateral views of the chest COMPARISON: 02/17/2024 FINDINGS: Support devices: Interval removal of [place]-Kaila catheter, endotracheal tubeand mediastinal chest tubes The [...] who have questions please contactthe health career resource specialist that requested your imaging first. Hayder Graham MD IMG DX ORDERABLES * Scan, Peripheral Blood (02/20/2024 4:23 AM EDT) Pathologist [facility] Plat estimate Decreased [facility] RBC Morphology Normal [facility] Blood 02/20/2024 4:23 AM EDT 02/20/2024 4:42 AM EDT Narrative Resulting Agency Comment Spec In Lab Minnie FRENCH HEMATOLOGY CECILIO ALEMAN [facility] [place] [address] * (ABNORMAL) Differential, Automated (02/20/2024 4:23 AM EDT) [facility] Neutrophil % 81.7 % [facility] Neutrophil Absolute 10.37(H) 1.70 - 6.10 x10(3)/mc L [facility] Lymph % 7.4 % [facility] Lymphocytes Abs 0.9 0.9 - 3.2 x10(3)/mc L [facility] Monocyte % 9.7 % [facility] Monocyte Abs 1.2(H) 0.3 - 0.9 x10(3)/mc L [facility] Eos % 0.1 % [facility] Eosinophils Abs 0.0 0.0 - [...] HEMATOLOGY CECILIO ALEMAN [facility] [place] [address] * (ABNORMAL) Hemogram (02/20/2024 4:23 AM EDT) [...] RDW Standard Deviation 43.5 36.0 - 45.0 [facility] RDW coefficient of variation 13.7 11.4 - 13.8 % [facility] Mean Platelet Volume 10.2 7.6 - 12.9 [facility] NRBC% auto 0.0 % [facility] NRBC Absolute 0.000 0.000 - 0.000 x10(3)/mc L [facility] Blood 02/20/2024 4:23 AM EDT 02/20/2024 4:42 AM EDT Narrative Resulting Agency Comment Spec In Lab Minnie FRENCH HEMATOLOGY CECILIO ALEMAN [facility] [place] [address] * (ABNORMAL) Basic Metabolic Panel (non-fasting) (02/20/2024 [...] Performing Organization Address [facility] Co de Phone Number [facility] [place] [address] * Potassium (02/19/2024 3:57 AM EDT) Potassium [...] Performing Organization Address [facility] Co de Phone Number [facility] [place] [address] * POCT Glucose (02/18/2024 8:24 AM EDT) Glucose, POC 157 65 - 199 mg/dL [facility] Comment: Supplemental ranges: <140 mg/dL before meals <180 mg/dL all other times of the day Blood 02/18/2024 8:24 AM EDT 02/18/2024 8:24 AM EDT Hayder Graham MD POINT OF CARE TEST ORDERABLES [facility] [place] [address] * Scan, Peripheral Blood (02/18/2024 1:40 AM EDT) Pathologist [facility] Plat estimate Decreased [facility] RBC Morphology Normal [facility] Blood 02/18/2024 1:40 AM EDT 02/18/2024 1:56 AM EDT Narrative Resulting Agency Comment Spec In Lab Neftali FRENCH HEMATOLOGY ORDER OLE Performing Organization Address City/[facility]/ZIP Co de Phone Number [facility] [place] [address] * (ABNORMAL) Differential, Automated (02/18/2024 1:40 AM EDT) [facility] Neutrophil % 87.1 % [facility] Neutrophil Absolute 15.03(H) 1.70 - 6.10 x10(3)/mc L [facility] Lymph % 3.0 % [facility] Lymphocytes Abs 0.5(L) 0.9 - 3.2 x10(3)/mc L [facility] Monocyte % 9.1 % [facility] Monocyte Abs 1.6(H) 0.3 - 0.9 x10(3)/mc L [facility] Eos % 0.0 % [facility] Eosinophils Abs 0.0 0.0 - [...] HEMATOLOGY ORDER OLE [facility] [place] [address] * (ABNORMAL) Hemogram (02/18/2024 1:40 AM EDT) White Blood Cell 17.2(H) 4.0 - 9.5 x10(3)/ L [facility] Red Blood Cell 4.71 4.58 - 5.54 x10(6)/ L [facility] Hemoglobin 13.7 [...] HEMATOLOGY ORDER OLE [facility] [place] [address] * (ABNORMAL) Basic Metabolic Panel (non-fasting) (02/18/2024 [...] MD CHEMISTRY ORDERABLE S Performing Organization Address City/[facility]/ZIP Co de Phone Number [facility] [place] [address] * (ABNORMAL) Troponin (02/18/2024 1:40 AM EDT) [...] value can be found in the [facility] Test Catalog Troponin - [facility] Test Catalog Reference: Fourth [place] Definition of Myocardial Infarction. Journal of the [place] [employer] 2018;72:5765-1691 Blood 02/18/2024 1:40 AM EDT 02/18/2024 1:56 AM EDT Narrative Resulting Agency Comment Spec In Lab Hayder Graham MD CHEMISTRY ORDERABLE S [facility] [place] [address] * POCT Glucose (02/17/2024 8:13 PM EDT) Glucose, POC 142 65 - 199 mg/dL [facility] Comment: Supplemental ranges: <140 mg/dL before meals <180 mg/dL all other times of the day Blood 02/17/2024 8:13 PM EDT 02/17/2024 8:13 PM EDT Hayder Graham MD POINT OF CARE TEST ORDERABLES Performing Organization Address [facility] Co de Phone Number [facility] [place] [address] * POCT Glucose (02/17/2024 5:42 PM EDT) Glucose, POC 160 65 - 199 mg/dL [facility] Comment: Supplemental ranges: <140 mg/dL before meals <180 mg/dL all other times of the day Blood 02/17/2024 5:42 PM EDT 02/17/2024 5:42 PM EDT Hayder Graham MD POINT OF CARE TEST ORDERABLES Performing Organization Address [facility]/ZIP Co de Phone Number [facility] [place] [address] * Hemoglobin (02/17/2024 5:42 PM EDT) Hemoglobin 13.7 13.7 - 16.5 g/dL [facility] Blood 02/17/2024 5:42 PM EDT 02/17/2024 6:10 PM EDT Narrative Resulting Agency Comment Spec In Lab Hayder Graham MD HEMATOLOGY ORDERABL ES [facility] [place] [address] * Potassium (02/17/2024 5:42 PM EDT) Potassium [...] MD CHEMISTRY ORDERABLE S Performing Organization Address City/State/[facility] Co de Phone Number [facility] [place] [address] * (ABNORMAL) BLOOD GAS 2 ARTERIAL (02/17/2024 [...] [facility] FIO2 Art 40 % [facility] PF Ratio Art 195 [facility] Blood 02/17/2024 4:18 PM EDT 02/17/2024 4:18 PM EDT Hayder Graham MD POINT OF CARE TEST ORDERABLES [facility] [place] [address] * XR Chest One View (02/17/2024 1:44 PM EDT) [employer] WORKSTATION ID [id number] DH RAD Anatomical Region Laterality Modality Chest N/A Digital Radiogra phy Impressions 02/17/2024 2:12 PM EDT 1. ??No definite pleural fluid collection or pneumothorax. 2. ??Right IJ Camden-Kaila catheter tip terminates in a descending branch [...] have questions please contact the health career resource specialist that requested your imaging first. ? Electronically signed by: Denzel Hankins MD, [facility] ??([phone]), at 02/17/2024 2:12 PM Narrative 02/17/2024 2:12 PM EDT EXAMINATION: XR CHEST ONE VIEW CLINICAL HISTORY: s/p avr/cabg eval effusions TECHNIQUE: 1 view of the chest COMPARISON: Chest x-ray 01/09/2024, chest CT 02/03/2024 FINDINGS: ET tube tip terminates 5.2 cm above the carlos. Right IJ Camden-Kaila catheter tip terminates in a descending branch [...] tube tip terminates 5.2 cm above the acrlos. Right IJ Camden-Ganzcatheter tip terminates in a descending branch of [...] fluid collection or pneumothorax. 2. Right IJ Cam[place]-Kaila catheter tip terminates in a descending branch ofthe right pulmonary artery. Suggest catheter retraction. 3. Additional support lines and tubes as above. Thank you for letting us participate in the care of this patient. If youare a health care provider and have any questions regarding this report,please contact the number below. For patients who have questions please contactthe health career resource specialist that requested your imaging first. Hayder [...] [facility] FIO2 Art 100 % [facility] PF Ratio Art 320 [facility] Blood 02/17/2024 1:31 PM EDT 02/17/2024 1:31 PM EDT Hayder Graham MD POINT OF CARE TEST ORDERABLES [facility] [place] [address] * (ABNORMAL) Coox2 (02/17/2024 1:21 PM EDT) pO2, Coox 44 mmHg [facility] Hgb [...] TEST ORDERABLES [facility] [place] [address] * (ABNORMAL) BLOOD GAS 2 ARTERIAL (02/17/2024 [...] OF CARE TEST ORDERABLES Performing Organization Address [facility]/ZIP Co de Phone Number [facility] [place] [address] * (ABNORMAL) Fibrinogen (02/17/2024 12:10 PM EDT) [...] MD HEMATOLOGY ORDERABLE S Performing Organization Address City/[facility]/ZIP Co de Phone Number [facility] [place] [address] * (ABNORMAL) Thrombin time (02/17/2024 12:10 PM [...] MD HEMATOLOGY ORDERABLE S Performing Organization Address [facility] Co de Phone Number [facility] [place] [address] * APTT (02/17/2024 12:10 PM EDT) Partial [...] MD HEMATOLOGY ORDERABLE S Performing Organization Address [facility] Co de Phone Number [facility] [place] [address] * (ABNORMAL) Prothrombin Time (02/17/2024 12:10 PM [...] ORDERABLE S [facility] [place] [place] [address] * (ABNORMAL) Hemogram (02/17/2024 12:10 PM EDT) [...] RDW Standard Deviation 40.2 36.0 - 45.0 [facility] [...] HEMATOLOGY ORDERABLE S [facility] [place] [address] * (ABNORMAL) BLOOD GAS 2 ARTERIAL (02/17/2024 [...] [facility] Comment: Noted by director of [...] CARE TEST ORDERABLES [facility] [place] [address] * (ABNORMAL) BLOOD GAS 2 ARTERIAL (02/17/2024 [...] [facility] Comment: Noted by director of [...] OF CARE TEST ORDERABLES Performing Organization Address [facility]/ZIP Co de Phone Number [facility] [place] [address] * (ABNORMAL) Hemoglobin and Hematocrit, blood (02/17/2024 [...] [facility]/[place] [address] * (ABNORMAL) Platelet count (02/17/2024 11:04 AM EDT) Platelet 106(L) 145 - 357 x10(3)/mc L [facility] Immature Plt % 1.6 0.0 - 7.4 % [facility] Comment: Limitation of the Immature Platelet Fraction (IPF)-May be less reliable when the platelet count is less than 45m637/uL due to statistical imprecision. The IPF value [...] in a decreased state of production. References: [employer] The Clinical Value of the Immature Platelet Fraction (IPF) in Cell Recovery Document Number 10-1143 03/2011 [employer] The Role of the Immature Platelet Fraction (IPF) in the Differential Diagnosis of Thrombocytopenia, Document MKT-10-1209 V002/15/14 Blood 02/17/2024 11:0 4 AM EDT 02/17/2024 11:12 AM EDT Narrative Resulting Agency Comment Spec In Lab Hayder Graham MD HEMATOLOGY ORDERABL ES Performing Organization Address City/State/[facility] Co de Phone Number [facility] [place] [address] * (ABNORMAL) Fibrinogen (02/17/2024 11:04 AM EDT) [...] HEMATOLOGY ORDERABL ES [facility] [place] [address] * (ABNORMAL) BLOOD GAS 2 ARTERIAL (02/17/2024 [...] CARE TEST ORDERABLES [facility] [place] [address] * (ABNORMAL) BLOOD GAS 2 ARTERIAL (02/17/2024 [...] CARE TEST ORDERABLES [facility] [place] [address] * Surgical Pathology Report (02/17/2024 10:01 AM EDT) Final Diagnosis [id number] ? Location: [facility]; [facility] [place]; The signing pathologist has (i) examined the relevant preparation(s) for the specimen(s) and (ii) rendered or confirmed the diagnosis(es). . ?Surgical Pathology DIAGNOSIS Aortic valve leaflets, excision: Valve leaflets with myxoid degeneration, nodular fibrosis and dystrophic calcifications. Electronically signed by: ?Livier Montoya MD Verified: ??02/24/2024 13:49 ??Pathologist Performed at: ??-[facility] [place], [place] [address] [employer] Curtain Machine Tender: Job Brewer MD, FCAP, ??IA Certificate: [id number] SPECIMEN(S) SUBMITTED A - Aortic Valve Leaflets, [...] Sections Processing Blocks submitted for decalcification: A1. Limousine Rental Clerk sections in 1 cassette labeled A1. ??ajw 02/24/2024 1:49 PM EDT [facility] AORTIC STRUCTURE / Unknown 02/17/2024 10:01 AM EDT 02/17/2024 10:01 AM EDT Hayder Graham MD PATHOLOGY/CYTOLOGY ORDERABLES [facility] [place] [address] * Specimen to Pathology (02/17/2024 10:01 AM EDT) AP Specimen 02/17/2024 10:0 1 AM EDT 02/17/2024 10:01 AM EDT Narrative [facility] - 02/17/2024 10:01 AM EDT Specimen requisition ordered. ??Separate Pathology report to follow Hayder Graham MD PATHOLOGY/CYTOLOGY ORDERABLES Performing Organization Address City/[facility]/ZIP Co de Phone Number [facility] [place] [address] * (ABNORMAL) BLOOD GAS 2 ARTERIAL (02/17/2024 [...] CARE TEST ORDERABLES [facility] [place] [address] * (ABNORMAL) BLOOD GAS 2 VENOUS (02/17/2024 9:34 AM EDT) pH, Venous 7.22(Criti marquez) 7.32 - 7.42 [facility] Comment:Noted by director of instrumental music. PCO2, Venous 43 41 - 51 mmHg [facility] Comment:Noted by director of instrumental music. PO2, Venous 57(H) 25 - 40 mmHg [facility] Comment:Noted by director of instrumental music. Bicarbonate, Venous 17.1 mmol/L [facility] Comment:Noted by director of instrumental music. Base Excess, Venous -10.6 mmol/L [facility] Comment:Noted by director of instrumental music. Hgb Blood Gas 11.2(L) 13.7 - 16.5 g/dL [facility] Comment:Noted by director of instrumental music. Oxyhemoglobin, Venous 86.5 % [facility] Comment:Noted by director of instrumental music. Carboxyhemoglob in, Venous 0.3 % [facility] Comment: Noted by director of instrumental music. Nonsmokers: 0.5-1.5% COHB Smokers: Variable, but usually less than 10% Toxic: 20-30% COHB Lethal: Greater than 60% COHB Methemoglobin, Venous 0.0 <=1.5 % [facility] Comment:Noted by director of instrumental music. Na Whole Blood 156(H) 135 - 145 mmol/L [facility] Comment:Noted by director of instrumental music. K Whole Blood 5.5(H) 3.5 - 5.0 mmol/L [facility] Comment: Noted by director of instrumental music. Please note: Patients with WBC >100,000 may have falsely elevated Potassium levels. Contact the Clinical Chemistry Laboratory if there are any questions. ICa Whole Blood 1.03(L) 1.15 - 1.33 mmol/L [facility] Comment: Noted by director of instrumental music. Note: ??Total bilirubin higher than 20 mg/dL may lead to falsely low ionized calcium. CL Whole Blood 100 98 - 107 mmol/L [facility] Comment:Noted by director of instrumental music. Gluc Whole Bld 132 65 - 199 mg/dL [facility] Comment: Noted by director of instrumental music. Diabetes: >=200 mg/dL plus symptoms Lactate WB 1.0 0.5 - 2.2 mmol/L [facility] Comment:Noted by director of instrumental music. Blood Gas Source Venous [facility] Blood 02/17/2024 9:34 AM EDT 02/17/2024 9:34 AM EDT Hayder Graham MD POINT OF CARE TEST ORDERABLES [facility] [place] [address] * (ABNORMAL) BLOOD GAS 2 ARTERIAL (02/17/2024 [...] OF CARE TEST ORDERABLES Performing Organization Address [facility] Co de Phone Number [facility] [place] [address] * POCT Glucose (02/17/2024 6:38 AM EDT) Glucose, POC 98 65 - 199 mg/dL [facility] Comment: Supplemental ranges: <140 mg/dL before meals <180 mg/dL all other times of the day Blood 02/17/2024 6:38 AM EDT 02/17/2024 6:38 AM EDT Hayder Graham MD POINT OF CARE TEST ORDERABLES Performing Organization Address [facility] de Phone Number [facility] [place] [address] * Transesophageal Echo/OR (02/17/2024 6:33 AM EDT) [...] [facility] [...] 6 hours upon arrival to Unit. Give OK if unable to take PO, Routine Given [...] dose on Sat02/17/24 at 1400, Until Discontinued, Martha teeth and / or gums. Scan the CHG vial in the [employer] Q-Care Oral Care Kit from floor stock. Ventilator-associated pneumonia prophylaxis For use in ICU/Critical care locations ONLY. Obtain kit from Floor Stock location. Scan CHG vial in the [employer] Q-Care Oral Care Kit, Routine Given 02/17/2024 [...] restart at 50% of previous rate. Call senior data warehouse architect if goal not achieved at maximum rate. [...] PHENYLephrine and/or vasopressin ineffective. Call pager # [phone] if initiated. Titrate to keep systolic blood [...] 2.0 L/min/M2. Maximum volume 2 L. Call senior data warehouse architect for additional fluid orders: pager #[phone]. Rate/Dose Verify 02/18/2024 8:00 AM EDT 1 mL/hr 1 mL/hr Rate/Dose Verify 02/18/2024 6:00 AM EDT 1 mL/hr 1 mL/hr Rate/Dose Verify 02/18/2024 4:00 AM EDT 1 mL/hr 1 mL/hr sodium chloride 0.9% infusion 10-30 mL/hr, Intravenous, DAILY PRN, Starting on Sat02/17/24 at 1307, Until Sat02/18/24 at 0835, Side port TKO rate, per [facility] nursing protocol. Rate/Dose Verify 02/17/2024 8:00 [...] Crook, COLBY) 0836 (Not Given - Provider: Jazyln Maldonado RN - Reason: Patient/family refused) metoprolol [...] Routine documented in this encounter Care Teams Technical Support Manager Relationship Specialty Start Date End Date Aparna Jordan APRN PCP - General Family Medicine 10/21/23 05/26/24 documented as of this encounter
--- OUTSIDE RECORDS SUMMARY | 2024-08-27 10:07 | XMS_ITS | Encounter Summary ---
Author Organization [facility] [address] Care Team Providers Care Steel Chipper Name Role Phone Vanessa Christian MAURI Primary Care Provider [phone] Reason for Visit * Auth/Cert (Routine) Specialty [...] MD [facility] [place] [address] [facility] Referral ID Status Reason Start Date Expiration Date Visits Re quested Visits Authorized [id number] 1 1 Encounter Details Date Type Department Care Team (Latest Contact Info) Description 02/03/2024 8:06 AM EDT - 02/03/2024 2:54 PM EDT Hospital Encounter [place] [address] Rima Dickinson MD [facility] [place] [address] Screening for cardiovascular condition; Aortic valve stenosis, [...] lbs Follow-up Visits Follow up with your director equipment in 2-4 weeks Access Site 'Black and Blue' and tenderness is expected during the first week Call if you noted a mass (lump) greater than the size of a ellis Call Office with any Questions and if you have any of the following Clarence Lane M.D [facility] Weaving Instructor #: [phone] * Attachments The following attachments cannot be [...] Lane MD - 02/03/2024 11:48 AM EDT [facility] Interventional Cardiology Adult Pre-Procedure H&P Update: Cardiac Catheterization Karlos Anthony [id number] 1960 Chief Complaint: Aortic stenosis HPI: Mr. [...] is inthe chart Clarence Lane MD [facility] 02/03/24 11:48 AM documented in this encounter Miscellaneous Notes * Brief Op Note - Clarence Lane MD - 02/03/2024 12:51 PM EDT Preliminary Cardiac Catheterization Procedure Note: Patient Name: Karlos Anthony : [id number] MR#: [id number] Case Date: 02/03/2024 Weaving Instructor: Surgeon(s) and Role: * Saira Lua MD [...] Narrative 02/12/2024 3:47 PM EDT ?[facility] ? Cardiac Catheterization/Intervention Report ? Patient Name: Patenaude, Karlos ? Procedure Date: 02/03/2024 ? A #: [id number] ? Primary Physician: Mogadam, Emad ? Case #: [id number] ? File Name: [id number] ? Catheterization Order Number: [id number] ? [facility] ? Final Report [place], [place] ? Patient Name: ? Karlos Anthony ? ID#: ?[id number] ? : ?1960 ? Procedure Date: ? [...] Saira Lua MD - 02/12/2024 [facility] Cardiac Catheterization/Intervention Report Patient Name: Karlos Anthony Procedure Date: 02/03/2024 A #: [id number] Primary Physician: Saira Lua Case #: [id number] File Name: [id number] Catheterization Order Number: [id number] [facility] FinalReport [place], [place] Patient Name: Karlos Anthony ID#:[id number] :1960 Procedure Date: February 03, 2024 Case [...] angiography. Saira Lua M.D. Electronically Signed by: Siara Lua M.D. Report Finalized: 02/12/2024 15:43 Saira Lua MD CARDIAC CATH ORDERAB LES * EKG 12 Lead (02/03/2024 10:33 AM EDT) Ventricular rate 56 BPM MUSE SYSTEM Atrial Rate 56 BPM MUSE SYSTEM P-R Interval 196 ms MUSE SYSTEM QRS Duration 86 ms MUSE SYSTEM Q-T Interval 386 ms MUSE SYSTEM QTC Calculated (Bezet) 372 ms MUSE SYSTEM Calculated P [place] 59 degrees MUSE SYSTEM Calculated R [place] 34 degrees MUSE SYSTEM Calculated T [place] 63 degrees MUSE SYSTEM INTERPRETATION Sinus bradycardia [...] MD) documented in this encounter Care Teams Steel Chipper Relationship Specialty Start Date End Date Vanessa Christian APRN PCP - General Family Medicine 10/21/23 05/26/24 documented as of this encounter
--- OUTSIDE RECORDS SUMMARY | 2024-08-27 10:07 | XMS_ITS | Encounter Summary ---
[facility] Organization [facility] [address] Care Team Providers Care Cutting Table Operator Name Role Phone Vanessa Christian APRN Primary Care Provider [phone] Encounter Details Date Type Department Care Team [...] filedocumented in this encounter Care Teams Cutting Table Operator Relationship Specialty Start Date End Date Vanessa Christian APRN PCP - General Family Medicine 10/21/23 05/26/24 documented as of this encounter
--- OUTSIDE RECORDS SUMMARY | 2024-08-27 10:07 | XMS_ITS | Encounter Summary ---
Author Organization [facility] [place] [address] Care Team Providers Care Narcotics And Vice Detective Name Role Phone Vanessa Christian Lane DOTSON Primary Care Provider [phone] Encounter Details Date Type Department Care Team (Latest Contact Info) Description 01/09/2024 3:00 PM EDT Laboratory [place] [id number] Nonrheumatic aortic valve stenosis Social History Tobacco [...] TYPE AND SCREEN, SDP (FUTURE SURGERY, [facility] SAME DAY PROGRAM [...] Recheck Status (01/09/2024 2:58 PM EDT) Pathologist [facility] ABORH Recheck Order Order Placed [facility] ABORH Type Recheck Completed [facility] Blood 01/09/2024 2:58 PM EDT 01/09/2024 3:08 PM EDT Narrative Resulting Agency Comment Spec In Lab Zak Farmer MD BLOOD BANK LAB ORDE ASH [facility] [place] [address] * Differential, Automated (01/09/2024 2:58 PM EDT) Neutrophil % 70.5 % [facility] Neutrophil Absolute 4.34 1.70 - 6.10 x10(3)/[facility] Lymph % 18.9 % [facility] Lymphocytes Abs 1.2 0.9 - 3.2 x10(3)/[facility] Monocyte % 8.0 % [facility] Monocyte Abs 0.5 0.3 - 0.9 x10(3)/[facility] Eos % 1.6 % [facility] Eosinophils Abs 0.1 0.0 - 0.4 x10(3)/[facility] Basophil % 0.5 % [facility] Baso Absolute 0.0 0.0 - 0.1 x10(3)/[facility] Immature Gran % 0.50 % GRACE [...] HEMATOLOGY ORDERABL ES [facility] [place] [address] * Hemogram (01/09/2024 2:58 PM EDT) White [...] HOSPITAL LABORATORY Platelet 187 145 - 357 x10(3)/[facility] RDW Standard Deviation 39.2 36.0 - 45.0 [facility] RDW coefficient of variation 12.6 11.4 - 13.8 % [facility] Mean Platelet Volume 9.5 7.6 - 12.9 [facility] NRBC% auto 0.0 % [facility] NRBC Absolute 0.000 0.000 - 0.000 x10(3)/[facility] Blood 01/09/2024 2:58 PM EDT 01/09/2024 3:03 PM EDT Narrative Resulting Agency Comment Spec In Lab Zak Farmer MD HEMATOLOGY ORDERABL ES [facility] [place] [address] * Basic Metabolic Panel (non-fasting) (01/09/2024 2:58 [...] ORDERABLE S Performing Organization Address [facility] Co de Phone Number [facility] [place] [address] * Hepatic Function Panel (01/09/2024 2:58 PM [...] ORDERABLE S Performing Organization Address [facility] Co de Phone Number [facility] [place] [address] * Prothrombin Time (01/09/2024 2:58 PM EDT) [...] MD HEMATOLOGY ORDERABL ES Performing Organization Address City/[facility]/ZIP Co de Phone Number [facility] [place] [address] * Type and Screen Future Surgery, [facility] SAME DAY PROGRAM ONLY) (01/09/2024 2:58 PM EDT) ABORH Type O NEGATIVE [facility] Patient BB History Not Found [facility] Expires at [id number] on: 02-20-2024 [facility] Ab Screen Interp Negative [facility] Blood 01/09/2024 2:58 PM EDT 01/09/2024 2:58 PM EDT Narrative Resulting Agency Comment Spec In Lab Zak Farmer MD BLOOD BANK LAB ORDE RABLES [facility] [place] [address] documented in this encounter Visit Diagnoses Diagnosis Nonrheumatic aortic valve stenosis Aortic valve disorders documented in this encounter Care Teams Narcotics And Vice Detective Relationship Specialty Start Date End Date Vanessa Christian APRN PCP - General Family Medicine 1/15/24 8/20/24 documented as of this encounter
--- OUTSIDE RECORDS SUMMARY | 2024-08-27 10:07 | XMS_ITS | Encounter Summary ---
Author Organization [facility] [place] [address] Care Team Providers Care Rn Clinical Name Role Phone Vanessa Christian FRAMING CONSULTANT Primary Care Provider [phone] Reason for Referral * Diagnostic Test (Routine) - Closed Specialty Diagnoses / Procedures Referred By Contac t Referred To Contact Radiology Diagnoses Nonrheumatic aortic valve stenosis Procedures CT Chest wo Contrast (Generic) Louisa Reid PA [facility] [place] [address] [facility] [place] [address] Referral ID Status Reason Start Date Expiration Date V isits Requested Visits Authorized [id number] Closed Specialty Service Requested 01/10/2024 07/11/2025 1 1 Encounter Details Date Type Department Care Team (Late st Contact Info) Description 01/09/2024 Orders Only [place] [address] Zak Farmer MD [facility] [place] [address] Nonrheumatic aortic valve stenosis Social History Tobacco [...] wo Contrast (Generic) (02/03/2024 7:44 AM EDT) [employer] WORKSTATION ID [id number] RAD Anatomical Region Laterality Modality Chest Computed [...] have questions please contact the health childcare administrator that requested your imaging first. ? Narrative [...] Skeletal structures: No significant findings. Procedure Note Rgoerio Wright MD - 02/03/2024 EXAMINATION: CT CHEST [...] who have questions please contactthe health childcare administrator that requested your imaging first. Zak Farmer MD IMG CT ORDERABLES documented in this encounter Visit Diagnoses Diagnosis Nonrheumatic aortic valve stenosis Aortic valve disorders Nonrheumatic aortic valve stenosis Aortic valve disorders documented in this encounter Care Teams Rn Clinical Relationship Specialty Start Date End Date Vanessa Christian APRN PCP - General Family Medicine 10/21/23 05/26/24 documented as of this encounter
--- OUTSIDE RECORDS SUMMARY | 2024-08-27 10:07 | XMS_ITS | Encounter Summary ---
Author Organization [facility] [place] [address] Care Team Providers Care High Lift Driver Name Role Phone Vanessa Christian MAURI Primary Care Provider [phone] Reason for Visit * Auth/Cert (Routine) Specialty [...] ARTERIAL GRAFT (WRVU 7.93) Zak Farmer MD [facility] CARDIOTHORACIC [place] [address] [facility] Referral ID Status Reason Start Date Expiration Date Visits Re quested Visits Authorized [id number] 1 1 Encounter Details Date Type Department Care Team (Late st Contact Info) Description 02/17/2024 7:35 AM EDT Anesthesia Event Main Operating Room [facility] [place] [id number] Roman York MD [facility] ANESTHESIOLOGY [place] [address] Anesthesia Record Procedure Summary Procedure Name Responsible [...] by Sadiq Woo RN PIV 02/17/24; 0715; [id number] catheter system; 18 gauge; cephalic vein (lateral [...] th e electric, gas, oil, or water [employer] threatened to shut off services in your [...] Procedure Summary Date: 02/17/24 Room / Location: [facility] OR [address] [place] [address] MAIN OR Anesthesia Start: 734 Anesthesia Stop: [...] shown include unfiled device data. Patient Location: [facility] Level of Consciousness: Sedated (Pharmacologic/Intentional) [...] 08/14/2023 ??? Nevus of face 09/26/2023 Right congregation No past surgical history on file. Social [...] mg documented in this encounter Care Teams High Lift Driver Relationship Specialty Start Date End Date Vanessa Christian APRN PCP - General Family Medicine 10/21/23 05/26/24 documented as of this encounter
--- OUTSIDE RECORDS SUMMARY | 2024-08-27 10:07 | XMS_ITS | Encounter Summary ---
Author Organization [facility] [place] [address] Care Team Providers Care Test Puller Name Role Phone Aparna Jordan MAURI Primary Care Provider [phone] Reason for Visit * Auth/Cert (Routine) Specialty [...] MD [facility] [place] [address] [place] Referral ID Status Reason Start Date Expiration Date Visits Re quested Visits Authorized [id number] 1 1 Encounter Details Date Type Department Care Team (Late st Contact Info) Description 02/17/2024 7:30 AM EDT - 02/17/2024 1:26 PM EDT [place] [id number] Hayder Graham MD [facility] [place] [address] ENDOSCOPIC HARVEST VEIN(S) FOR CABG (WRVU 0.31) [...] Patient Age: 63 y.o. Birthdate: 1960 Language: Mohawk Race: White Ethnicity: Not nor Admit Date: 02/17/2024 Discharge Date: 02/24/24 Attending Physician: Hayder Graham MD Follow-up Recommendations for Providers: Please continue routine management of cardiovascular risk factors including blood pressure, lipids,glucose, etc. Please note any changes to medications. Patient to follow up with PCP, Aparna Jordan APRN, in 1-2 weeks. Patient to follow up with Agricultural Sales Representative, Neftali Ernandez MD , in 2 weeks. Patient to follow up with Cardiac Surgeon, Dr. Hayder Graham, with a chest x-ray, EKG, and Echo. Inpatient Provider Contact Information: [facility] [phone] FAX [phone] Discharge Diagnoses (Hospital Problems) Primary Diagnoses: /CAD [...] Hypertension 08/14/2023 Nevus of face 09/26/2023 Right [facility]ist Past Surgical History: Procedure Laterality Date PRO CABG, ARTERIAL, SINGLE N/A 02/17/2024 @CABG, USING ARTERIAL GRAFT;SINGLE ARTERIAL GRAFT (WRVU 33.75) performed by Hayder Graham MD at [facility] MAIN OR PRO CABG, ARTERY-VEIN, TWO N/A 02/17/2024 @CABG, TWO VENOUS GRAFTS & ARTERIAL GRAFT (WRVU 7.93) performed by Hayder Graham MD at [facility] MAIN OR PRO ENDOSCOPY W/VIDEO-ASST VEIN HARVEST, CABG Left 02/17/2024 ENDOSCOPIC HARVEST VEIN(S) FOR CABG (WRVU 0.31) performed by Hayder Graham MD at [facility] MAIN OR PRO REPLACEMENT PROSTHETIC AORTIC VALVE OPEN W CARDIOPULMONARY BYPASS HOMOGRF/STENT N/A 02/17/2024 @REPLACE AORTIC VALVE, OPEN, W\CPB, W\PROSTHETIC VALVE (WRVU 41.32) performed by Hayder Graham MD at [facility] MAIN OR Prior To Admission [...] insufficiency. He has glaucoma. He used to [employer] until about 15 years ago. He [...] years ago STS Data Medications: Pre-operative beta reic? Not given Discharge beta eric? Given Discharge [...] your chest incision. Your surgeon, Dr. Hayder Garham and/or the Cardiac Surgery Physician Firesetter Team may be reached at . Antibiotic [...] Dr. Hayder Graham. You may use a [place] Track or treadmill but avoid any pulling [...] friends, go to a movie, go to nondenominational, etc. Heavy activities: No hunting, skiing, jogging, [...] while being managed by your PCP and/or Agricultural Sales Representative. For future medication refills, please refer to your PCP and/or Agricultural Sales Representative after your discharge from our service. Thank you REMOVE CHEST TUBE SUTURES ON OR AFTER 03/02/24 Home oxygen therapy: N/A Follow up appointments: You should follow up with your PCP, Aparna Jordan APRN, in 1-2 weeks. Our office will schedule an appointment with your Agricultural Sales Representative, Neftali Ernandez MD , in 2 [...] Future Orders Complete By Expires Echocardiogram Transthoracic [45259 CPT(R)] 03/26/2024 09/25/2024 Process Instructions: Scheduling Instructions: Questions: Where will study be performed?: [facility] Does the patient have Congenital Heart Disease?: Does patient require sedation?: Sedation rationale: XR Chest PA & Lateral (Generic) [18294 15592 Custom] 03/26/2024 09/25/2024 Process Instructions: Scheduling Instructions: Questions: Portable exam?: Reason for exam and clinical history: s/p avr/cabg Clinical information / jerome questions for radiologist: Stat read required?: Date of injury if applicable: Requested Time: Where will study be performed?: [facility] Radiology Referral to Cardiac Rehab [HVQ445 Custom] As directed Process Instructions: If no [...] admission to Home Health. [address] Phone Number: Date of : 1960 Inpatient DOCUMENTATION FOR VNA SERVICES (INCLUDING THOSE PATIENTS WITH MEDICARE COVERAGE REQUIRING HOME VNA SERVICES AND/OR HOSPICE SERVICES) PATIENT'S LOCATION: Karlos Garcia [address] [email or web address] [phone] Dust Brush Assembler's Name: self/family In discussion with the attending physician, it is certified that this patient is under their care and that they, or a Nurse Practitioner, or Physician Firesetter who is working directly with them, hada [...] for services as follows: HOME HEALTH AGENCY: [facility] [address] [place] [address] RN orders: Cardiopulmonary assessment, incisional assessment, assess [...] issues please call the Cardiology Office at [phone] FOR MEDICARE ONLY: (please delete this section [...] care: As above. Signed: NEFTALI MENON PA-C [facility] [phone] FAX [phone] Date: 02/24/2024 CC: Aparna Jordan, MAURI Jordan, Aparna Sherman APRN [address] [place] [address] documented in this encounter Discharge Instructions * [...] Hayder Graham and/or the Cardiac Surgery Physician Firesetter Team may be reached at . Antibiotic [...] Dr. Hayder Graham. You may use a [place] Track or treadmill but avoid any pulling [...] friends, go to a movie, go to nondenominational, etc. Heavy activities: No hunting, skiing, jogging, [...] while being managed by your PCP and/or Agricultural Sales Representative. For future medication refills, please refer to your PCP and/or Agricultural Sales Representative after your discharge from our service. Thank you REMOVE CHEST TUBE SUTURES ON OR AFTER 03/02/24 Home oxygen therapy: N/A Follow up appointments: You should follow up with your PCP, Aparna Jordan APRN, in 1-2 weeks. Our office will schedule an appointment with your Agricultural Sales Representative, Neftali Ernandez MD , in 2 [...] 0600 and on the weekends please page [phone]. * Eric Barahona PA - 02/23/2024 9:27 [...] 0600 and on the weekends please page [phone]. * Tiffanie Owens, STEAMFITTER APPRENTICE - 02/22/2024 2:48 PM EDT Physical Therapy [...] d/c for 10 days. 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 * Kelley Hinson STEAMFITTER APPRENTICE - 02/21/2024 10:15 AM EDT Physical [...] d/c for 10 days. 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 * Kelley Hinson PTA - 02/20/2024 3:32 [...] at that time Kelley Hinson PTA Pager: [phone] Physical Therapy Inpatient Rehab Department * Louisa [...] 0600 and on the weekends please page [phone]. * Maris Benavides, PT - 02/19/2024 11:22 [...] d/c for 10 days. 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 Precautions/Special Considerations: [...] outlined inthis evaluation. MARIS BENAVIDES, PT Pager: [phone] Physical Therapy Inpatient Rehabilitation Department Time IN / OUT: 4946-5486 Total Time: 38 (eval) minutes; * Antonio [...] 0600 and on the weekends please page [phone]. * Minnie Begum PA - 02/18/2024 8:25 [...] 0600 and on the weekends please page [phone]. * Kim Ha RCP - 02/17/2024 2:25 [...] plan since last visit. Hayder Graham MD [phone] Source Note - Hayder Graham MD - [...] given written informed consent. Hayder Graham MD [phone] * Hayder Graham MD - 02/17/2024 7:00 [...] given written informed consent. Hayder Graham MD [phone] documented in this encounter Miscellaneous Notes * [...] information for follow-up Home Health & Hospice, [address] [place] [address] Cardiac Rehab, [address] [place] [address] Transportation: family or friend will provide Functional status prior to admission: Independent Home Environment: Others in the home: alone. Current Living Arrangements: home/apartment/condo. Accessibility Concerns:a few steps to enter 1 floor home. Current Functional Ability: Assistive Person and Equipment DME used at home: none DME Needed at Discharge: N/A Patient is insured through: Primary Insurance: [employer] Payor: [facility] / Plan: [facility] PPO / Product Type: *No Product [...] pain managed with scheduled Tylenol. Worked with [employer]. Ambulated in the roque multiple times during [...] anticipated Patient is insured through: Primary Insurance: [facility] Payor: [facility] / Plan: [facility] PPO / Product Type: *No Product type* / Secondary Insurance: N/A Last Physical Therapy Recommendation: home with home health (Str coming to stay for a week or two upon d/c) with to be determined (owns rolling walker, shower seat) Plan for discharge is: Home w/ Services Outpatient Agency/Support Group Needs: Homecare agency Home Health Services: Physical Therapy, Registered Nurse Agency Referrals: [facility] [address] [place] [address] Transportation: family or friend will provide Barriers to discharge: Discharge planning Plan going forward: Service Care Management will continue to follow and assist with discharge planning and coordination of care as indicated. Anticipated Date of Discharge: 02/22/2024 Rhett Bell RN RN/CM - Cellphone: [phone] Pager: [phone] Covering Service RN/CM * Plan of Care [...] Hypertension 08/14/2023 Nevus of face 09/26/2023 Right [facility] Hospitalizations Within the Past 30 Days: no previous admission in last 30 days Current Decision-Making Capacity: Self If AD's have not been completed the following surrogate would be surrogate decision maker per [place] surrogate decision making law. (Only good for 180 days) Any patient receiving care in [place] must abide by [place] law. The hierarchy [...] place to sleep or slept in [facility] (including now)?: No In the past 12 months has the [employer], gas, oil, or water [employer] Vaccines threatened to shut off services in your [...] as: [address] [facility] [address] Physical address: [address] [facility], [address] Social & Family Supports: All names listed [...] Information: none noted Health/Prescription Coverage: Primary Insurance: [facility] Payor: [facility] / Plan: [facility] PPO / Product Type: *No Product type* / Secondary Insurance: N/A ; Prescription Coverage: Yes Preferred Pharmacy: [id number] [address] [place] Status: Patient is a : No Primary Care Provider confirmed: Aparna Jordan, MAURI [phone] Patient/Caregiver Goals of Treatment: dc to home Potential Needs for Transition of Care: home health care Agency Referrals: I have met with the patient to: discuss discharge planning needs. provide the [facility] Office of Care Management letter from the Woods Overseer pertaining to rehab referrals. provide a letter describing our affiliations within the [facility] and educate about their right to choose where referrals are sent. provide a list of Home Health Agencies / Durable Medical Equipment vendors which serve their preferred geographic area. provided patient with [facility] Star Quality Rating handout. They have requested referrals to: [facility] [address] [place] [address] Note routed to a Mechanical Engineering Manager who will communicate referrals to facilities [...] Reina Greene RN CM, BSN, CMGT-BC Ext [phone] * Plan of Care - Binta Trinidad [...] Operative Note Patient Name: Karlos Garcia : [id number] MR#: [id number] Case Date: 02/17/2024 Surgeon: Surgeon(s) and Role: * Hayder Graham MD - Primary * Neftali Menon PA - Physician Firesetter Preoperative diagnosis: CAD Postoperative diagnosis: CAD, intraoperative [...] Mediastinal and Left pleural Disposition: [facility] Condition: doing well without problems Attestation: Case Date: 02/17/2024 I performed this procedure without the involvement of a resident. HAYDER GRAHAM MD 02/17/2024 * Op Note - Hayder Graham MD - 02/17/2024 8:20 AM EDT [facility] Operative Note Patient Name: Karlos Garcia : [id number] MR#: [id number] Case Date: 02/17/2024 Surgeon: Surgeons and Role: * Hayder Graham MD - Primary * Neftali Menon PA - Physician Firesetter Preoperative diagnosis: CAD Postoperative diagnosis: CAD, intraoperative [...] Mediastinal and Left pleural Disposition: [facility] Procedure Description: The patient [...] Aortic Valve Open W Cardiopulmonary Bypass Homogrf/Stent (61259) Yes 02/17/2024 7:28 AM EDT CAD Cabg, Artery-Vein, Two (37068) Yes 02/17/2024 7:28 AM EDT CAD Cabg, Arterial, Single (01335) Yes 02/17/2024 7:28 AM EDT CAD Endoscopy W/Video-Asst Vein [place], Cabg (45965) Yes 02/17/2024 7:28 AM EDT CAD POCT [...] MD CHEMISTRY ORDERABLE S [facility] [place] [address] * (ABNORMAL) Basic Metabolic Panel (non-fasting) (02/23/2024 [...] Carpio MD CHEMISTRY ORDERABLES Performing Organization Address [facility] Co de Phone Number [facility] [place] [address] * Potassium (02/22/2024 4:30 AM EDT) Potassium [...] MD CHEMISTRY ORDERABLE S Performing Organization Address [facility] Co de Phone Number [facility] [place] [address] * (ABNORMAL) Basic Metabolic Panel (non-fasting) (02/21/2024 [...] Carpio MD CHEMISTRY ORDERABLES [facility] [place] [address] * Lactate, whole blood, send to lab ([facility]) (02/21/2024 9:45 AM EDT) Lactate WB 2.0 0.5 - 2.2 mmol/L [facility] Blood 02/21/2024 9:45 AM EDT 02/21/2024 9:52 AM EDT Narrative Resulting Agency Comment Spec In Lab Hayder Graham MD CHEMISTRY ORDERABLE S Performing Organization Address City/[facility]/ZIP Co de Phone Number [facility] [place] [address] * (ABNORMAL) Hepatic Function Panel (02/21/2024 9:45 AM EDT) Pathologist [facility] Protein, Total 5.7(L) 6.1 - 8.0 g/dL [...] MD CHEMISTRY ORDERABLE S Performing Organization Address City/[facility]/ZIP Co de Phone Number [facility] [place] [address] * Lipase (02/21/2024 9:45 AM EDT) Pathologist [facility] Lipase 56 0 - 60 unit/L [facility] Blood 02/21/2024 9:45 AM EDT 02/21/2024 9:52 AM EDT Narrative Resulting Agency Comment Spec In Lab Hayder Graham MD CHEMISTRY ORDERABLE S Performing Organization Address [facility] Co de Phone Number [facility] [place] [address] * Amylase (02/21/2024 9:45 AM EDT) Amylase 69 28 - 100 unit/L [facility] Blood 02/21/2024 9:45 AM EDT 02/21/2024 9:52 AM EDT Narrative Resulting Agency Comment Spec In Lab Hayder Graham MD CHEMISTRY ORDERABLE S Performing Organization Address [facility] de Phone Number [facility] [place] [address] * Potassium (02/21/2024 3:08 AM EDT) Pathologist [facility] Potassium 3.8 3.5 - 5.0 mmol/L [facility] [...] MD CHEMISTRY ORDERABLE S Performing Organization Address [facility] Co de Phone Number [facility] [place] [address] * XR Chest PA & Lateral (Generic) (02/20/2024 10:19 AM EDT) WORKSTATION ID [id number] RAD Anatomical Region Laterality Modality Chest N/A Digital Radiogra phy Impressions 02/20/2024 1:11 PM EDT Small pleural effusions. No pneumothorax Thank you for letting us participate in the care of this patient. ??If you are a health care provider and have any questions regarding this report, please contact the number below. ??For patients who have questions please contact the health home care nurse that requested your imaging first. ? Electronically signed by: Rogerio Cruz MD, [facility] ??([phone]), at 02/20/2024 1:11 PM Narrative 02/20/2024 1:11 PM EDT EXAMINATION: XR CHEST PA AND LATERAL (GENERIC) CLINICAL HISTORY: s/p AVR/CABGx3 TECHNIQUE: PA and lateral views of the chest COMPARISON: 02/17/2024 FINDINGS: Support devices: Interval removal of Irvine-Kaila catheter, endotracheal tube and mediastinal chest tubes The cardiac silhouette is stable status post median sternotomy, CABG and aortic valve replacement. There are small pleural effusions. No pneumothorax. Procedure Note Rogerio Cruz MD - 02/20/2024 EXAMINATION: XR CHEST PA AND LATERAL (GENERIC) CLINICAL HISTORY: s/p AVR/CABGx3 TECHNIQUE: PA and lateral views of the chest COMPARISON: 02/17/2024 FINDINGS: Support devices: Interval removal of Irvine-Kaila catheter, endotracheal tubeand mediastinal chest tubes The [...] have questions please contactthe health home care nurse that requested your imaging first. Electronically signed by: Rogerio Cruz MD, [facility]([phone]), at 02/20/2024 1:11 PM Hayder Graham MD IMG DX ORDERABLES * Scan, Peripheral Blood (02/20/2024 4:23 AM EDT) Plat estimate Decreased [facility] RBC Morphology Normal [facility] Blood 02/20/2024 4:23 AM EDT 02/20/2024 4:42 AM EDT Narrative Resulting Agency Comment Spec In Lab Minnie FRENCH HEMATOLOGY CECILIO ALEMAN [facility] [place] [address] * (ABNORMAL) Differential, Automated (02/20/2024 4:23 AM EDT) Pathologist [facility] Neutrophil % 81.7 % [facility] Neutrophil Absolute 10.37(H) 1.70 - 6.10 x10(3)/mc L [facility] Lymph % 7.4 % [facility] Lymphocytes Abs 0.9 0.9 - 3.2 x10(3)/mc L [facility] Monocyte % 9.7 % [facility] Monocyte Abs 1.2(H) 0.3 - 0.9 x10(3)/mc L [facility] Eos % 0.1 % [facility] [...] FRENCH HEMATOLOGY CECILIO ALEMAN [facility] [place] [address] * (ABNORMAL) Hemogram (02/20/2024 4:23 AM EDT) White Blood Cell 12.7(H) 4.0 - 9.5 x10(3)/[facility] Red Blood Cell 4.26(L) 4.58 - 5.54 x10(6)/[facility] Hemoglobin 12.3(L) 13.7 - 16.5 g/dL [facility] Hematocrit 37.1(L) 40.5 - 48.5 % [facility] Mean Cell Volume 87.1 82.9 - 93.1 [facility] Mean Cell Hemoglobin 28.9 27.5 - 32.1 pg [facility] Mean Cell Hemoglobin Concentration 33.2 32.0 - 35.7 g/dL [facility] Platelet 88(L) 145 - 357 x10(3)/[facility] LAB[facility]AT[facility] RDW Standard Deviation 43.5 36.0 - 45.0 [facility] RDW coefficient of variation 13.7 11.4 - 13.8 % [facility] Mean Platelet Volume 10.2 7.6 - 12.9 [facility] NRBC% auto 0.0 % [facility] NRBC Absolute 0.000 0.000 - 0.000 x10(3)/ L [facility] Blood 02/20/2024 4:23 AM EDT 02/20/2024 4:42 AM EDT Narrative Resulting Agency Comment Spec In Lab Minnie FRENCH HEMATOLOGY CECILIO ALEMAN [facility] [place] [address] * (ABNORMAL) Basic Metabolic Panel (non-fasting) (02/20/2024 [...] MD CHEMISTRY ORDERABLE S Performing Organization Address City/[facility]/ZIP Co de Phone Number [facility] [place] [address] * Potassium (02/19/2024 3:57 AM EDT) Potassium [...] MD CHEMISTRY ORDERABLE S Performing Organization Address [facility] Co de Phone Number [facility] [place] [address] * POCT Glucose (02/18/2024 8:24 AM EDT) Glucose, POC 157 65 - 199 mg/dL [facility] Comment: Supplemental ranges: <140 mg/dL before meals <180 mg/dL all other times of the day Blood 02/18/2024 8:24 AM EDT 02/18/2024 8:24 AM EDT Hayder Graham MD POINT OF CARE TEST ORDERABLES Performing Organization Address [facility]/ZIP Co de Phone Number [facility] [place] [address] * Scan, Peripheral Blood (02/18/2024 1:40 AM EDT) Plat estimate Decreased [facility] RBC Morphology Normal [facility] Blood 02/18/2024 1:40 AM EDT 02/18/2024 1:56 AM EDT Narrative Resulting Agency Comment Spec In Lab Neftali FRENCH HEMATOLOGY ORDER OLE [facility] [place] [address] * (ABNORMAL) Differential, Automated (02/18/2024 1:40 AM EDT) Neutrophil % 87.1 % [facility] Neutrophil Absolute 15.03(H) 1.70 - 6.10 x10(3)/mc L [facility] Lymph % 3.0 % [facility] Lymphocytes Abs 0.5(L) 0.9 - 3.2 x10(3)/mc L [facility] Monocyte % 9.1 % [facility] Monocyte Abs 1.6(H) 0.3 - 0.9 x10(3)/mc L [facility] Eos % 0.0 % [facility] [...] FRENCH HEMATOLOGY ORDER OLE [facility] [place] [address] * (ABNORMAL) Hemogram (02/18/2024 1:40 AM EDT) [...] FRENCH HEMATOLOGY ORDER OLE [facility] [place] [address] * (ABNORMAL) Basic Metabolic Panel (non-fasting) (02/18/2024 [...] MD CHEMISTRY ORDERABLE S [facility] [place] [address] * (ABNORMAL) Troponin (02/18/2024 1:40 AM EDT) [...] troponin value can be found in the [facility] Laboratory Test Catalog Troponin - [facility] Laboratory Test Catalog Reference: Fourth Riggins Definition of Myocardial Infarction. Journal of the [employer] College [employer] Cardiology 2018;72:1955-8366 Blood 02/18/2024 1:40 AM EDT 02/18/2024 1:56 AM EDT Narrative Resulting Agency Comment Spec In Lab Hayder Graham MD CHEMISTRY ORDERABLE S [facility] [place] [address] * POCT Glucose (02/17/2024 8:13 PM EDT) Glucose, POC 142 65 - 199 mg/dL [facility] Comment: Supplemental ranges: <140 mg/dL before meals <180 mg/dL all other times of the day Blood 02/17/2024 8:13 PM EDT 02/17/2024 8:13 PM EDT Hayder Graham MD POINT OF CARE TEST ORDERABLES Performing Organization Address [facility] Co de Phone Number [facility] [place] [address] * POCT Glucose (02/17/2024 5:42 PM EDT) Glucose, POC 160 65 - 199 mg/dL [facility] Comment: Supplemental ranges: <140 mg/dL before meals <180 mg/dL all other times of the day Blood 02/17/2024 5:42 PM EDT 02/17/2024 5:42 PM EDT Hayder Graham MD POINT OF CARE TEST ORDERABLES Performing Organization Address [facility] Center/[facility] Co de Phone Number [facility] [place] [address] * Hemoglobin (02/17/2024 5:42 PM EDT) [facility] Signature Hemoglobin 13.7 13.7 - 16.5 g/dL [facility] Blood 02/17/2024 5:42 PM EDT 02/17/2024 6:10 PM EDT Narrative Resulting Agency Comment Spec In Lab Hayder Graham MD HEMATOLOGY ORDERABL ES Performing Organization Address [facility] Co de Phone Number [facility] [place] [address] * Potassium (02/17/2024 5:42 PM EDT) [facility] Signature Potassium 4.3 3.5 - 5.0 [...] MD CHEMISTRY ORDERABLE S [facility] [place] [address] * (ABNORMAL) BLOOD GAS 2 ARTERIAL (02/17/2024 [...] [facility] FIO2 Art 40 % [facility] PF Ratio Art 195 [facility] Blood 02/17/2024 4:18 PM EDT 02/17/2024 4:18 PM EDT Hayder Graham MD POINT OF CARE TEST ORDERABLES [facility] [place] [address] * XR Chest One View (02/17/2024 1:44 PM EDT) [employer] WORKSTATION ID [id number] DH RAD Anatomical Region Laterality Modality Chest N/A Digital Radiogra phy Impressions 02/17/2024 2:12 PM EDT 1. ??No definite pleural fluid collection or pneumothorax. 2. ??Right IJ Irvine-Kaila catheter tip terminates in a descending branch [...] questions please contact the health home care nurse that requested your imaging first. ? Electronically signed by: Denzel Hankins MD, [facility] ??([phone]), at 02/17/2024 2:12 PM Narrative 02/17/2024 2:12 PM EDT EXAMINATION: XR CHEST ONE VIEW CLINICAL HISTORY: s/p avr/cabg eval effusions TECHNIQUE: 1 view of the chest COMPARISON: Chest x-ray 01/09/2024, chest CT 02/03/2024 FINDINGS: ET tube tip terminates 5.2 cm above the carlos. Right IJ Irvine-Kaila catheter tip terminates in a descending branch [...] 5.2 cm above the carlos. Right IJ Irvine-Ganzcatheter tip terminates in a descending branch of [...] fluid collection or pneumothorax. 2. Right IJ Irvine-Kaila catheter tip terminates in a descending branch ofthe right pulmonary artery. Suggest catheter retraction. 3. Additional support lines and tubes as above. Thank you for letting us participate in the care of this patient. If youare a health care provider and have any questions regarding this report,please contact the number below. For patients who have questions please contactthe health home care nurse that requested your imaging first. Electronically signed by: Denzel Hankins MD, [facility]([phone]), at 02/17/2024 2:12 PM Hayder Graham MD [...] [facility] FIO2 Art 100 % [facility] PF Ratio Art 320 [facility] Blood 02/17/2024 1:31 PM EDT 02/17/2024 1:31 PM EDT Hayder Graham MD POINT OF CARE TEST ORDERABLES [facility] [place] [address] * (ABNORMAL) Coox2 (02/17/2024 1:21 PM EDT) [...] OF CARE TEST ORDERABLES Performing Organization Address City/[facility]/ZIP Co de Phone Number [facility] [place] [address] * (ABNORMAL) BLOOD GAS 2 ARTERIAL (02/17/2024 [...] OF CARE TEST ORDERABLES Performing Organization Address [facility] Co de Phone Number [facility] [place] [address] * (ABNORMAL) Fibrinogen (02/17/2024 12:10 PM EDT) [...] MD HEMATOLOGY ORDERABLE S Performing Organization Address [facility] Co de Phone Number [facility] [place] [address] * (ABNORMAL) Thrombin time (02/17/2024 12:10 PM [...] MD HEMATOLOGY ORDERABLE S Performing Organization Address [facility] Co de Phone Number [facility] [place] [address] * APTT (02/17/2024 12:10 PM EDT) Partial [...] MD HEMATOLOGY ORDERABLE S Performing Organization Address [facility] Co de Phone Number [facility] [place] [address] * (ABNORMAL) Prothrombin Time (02/17/2024 12:10 PM [...] MD HEMATOLOGY ORDERABLE S [facility] [place] [address] * (ABNORMAL) Hemogram (02/17/2024 12:10 PM EDT) [...] MD HEMATOLOGY ORDERABLE S [facility] [place] [address] * (ABNORMAL) BLOOD GAS 2 ARTERIAL (02/17/2024 [...] mmol/L [facility] Comment: Noted by aircraft instrument mechanic. [...] OF CARE TEST ORDERABLES [facility] [address] [place] [address] * (ABNORMAL) BLOOD GAS 2 ARTERIAL (02/17/2024 [...] mmol/L [facility] Comment: Noted by aircraft instrument mechanic. [...] OF CARE TEST ORDERABLES Performing Organization Address [facility] de Phone Number [facility] [place] [address] * (ABNORMAL) Hemoglobin and Hematocrit, blood (02/17/2024 [...] MD HEMATOLOGY ORDERABL ES Performing Organization Address [facility] de Phone Number [facility] [place] [address] * (ABNORMAL) Platelet count (02/17/2024 11:04 AM EDT) Platelet 106(L) 145 - 357 x10(3)/mc L [facility] Immature Plt % 1.6 0.0 - 7.4 % [facility] Comment: Limitation of the Immature Platelet Fraction (IPF)-May be less reliable when the platelet count is less than 83l195/uL due to statistical imprecision. The IPF value [...] in a decreased state of production. References: [employer] The Clinical Value of the Immature Platelet Fraction (IPF) in Cell Recovery Document Number 10-1143 03/2011 [employer] The Role of the Immature Platelet Fraction (IPF) in the Differential Diagnosis of Thrombocytopenia, Document MKT-10-1209 V002/15/14 Blood 02/17/2024 11:0 4 AM EDT 02/17/2024 11:12 AM EDT Narrative Resulting Agency Comment Spec In Lab Hayder Graham MD HEMATOLOGY ORDERABL ES Performing Organization Address City/[facility]/ZIP Co de Phone Number [facility] [place] [address] * (ABNORMAL) Fibrinogen (02/17/2024 11:04 AM EDT) [...] MD HEMATOLOGY ORDERABL ES Performing Organization Address City/[facility]/ZIP Co de Phone Number [facility] [place] [address] * (ABNORMAL) BLOOD GAS 2 ARTERIAL (02/17/2024 [...] CARE TEST ORDERABLES [facility] [place] [address] * (ABNORMAL) BLOOD GAS 2 ARTERIAL (02/17/2024 [...] CARE TEST ORDERABLES Performing Organization Address City/State/[facility] Co de Phone Number [facility] [place] [address] * Surgical Pathology Report (02/17/2024 10:01 AM EDT) Final Diagnosis [id number] ? Location: [facility]; [facility]; The signing pathologist has (i) examined the relevant preparation(s) for the specimen(s) and (ii) rendered or confirmed the diagnosis(es). . ?Surgical Pathology DIAGNOSIS Aortic valve leaflets, excision: Valve leaflets with myxoid degeneration, nodular fibrosis and dystrophic calcifications. Electronically signed by: ?Lindsay FERNANDEZ, Livier Gonzaelz Verified: ??02/24/2024 13:49 ??Pathologist Performed at: ??-[facility] Dept[facility] of [place]ology, [place] [address] Woods Overseer: Job Brewer MD, FCAP, ??CLIA Certificate: [id number] SPECIMEN(S) SUBMITTED A - Aortic Valve Leaflets, [...] Processing Blocks submitted for decalcification: A1. Clerical Warehouseman sections in 1 cassette labeled A1. ??ajw 02/24/2024 1:49 PM EDT [facility] AORTIC STRUCTURE / Unknown 02/17/2024 10:01 AM EDT 02/17/2024 10:01 AM EDT Hayder Graham MD PATHOLOGY/[place] [address] * Specimen to Pathology (02/17/2024 10:01 AM EDT) AP Specimen 02/17/2024 10:0 1 AM EDT 02/17/2024 10:01 AM EDT Narrative [facility] - 02/17/2024 10:01 AM EDT Specimen requisition ordered. ??Separate Pathology report to follow Hayder Graham MD PATHOLOGY/CYTOLOGY ORDERABLES [facility] [place] [address] * (ABNORMAL) BLOOD GAS 2 ARTERIAL (02/17/2024 [...] OF CARE TEST ORDERABLES [facility] [place] [address] * (ABNORMAL) BLOOD GAS 2 VENOUS (02/17/2024 9:34 AM EDT) pH, Venous 7.22(Criti marquez) 7.32 - 7.42 [facility] Comment:Noted by aircraft instrument mechanic. PCO2, Venous 43 41 - 51 mmHg [facility] Comment:Noted by aircraft instrument mechanic. PO2, Venous 57(H) 25 - 40 mmHg [facility] Comment:Noted by aircraft instrument mechanic. Bicarbonate, Venous 17.1 mmol/L [facility] Comment:Noted by aircraft instrument mechanic. Base Excess, Venous -10.6 mmol/L [facility] Comment:Noted by aircraft instrument mechanic. Hgb Blood Gas 11.2(L) 13.7 - 16.5 g/dL [facility] Comment:Noted by aircraft instrument mechanic. Oxyhemoglobin, Venous 86.5 % [facility] Comment:Noted by aircraft instrument mechanic. Carboxyhemoglob in, Venous 0.3 % [facility] Comment: Noted by aircraft instrument mechanic. Nonsmokers: 0.5-1.5% COHB Smokers: Variable, but usually less than 10% Toxic: 20-30% COHB Lethal: Greater than 60% COHB Methemoglobin, Venous 0.0 <=1.5 % [facility] Comment:Noted by aircraft instrument mechanic. Na Whole Blood 156(H) 135 - 145 mmol/L [facility] Comment:Noted by aircraft instrument mechanic. K Whole Blood 5.5(H) 3.5 - 5.0 mmol/L [facility] Comment: Noted by aircraft instrument mechanic. Please note: Patients with WBC >100,000 may have falsely elevated Potassium levels. Contact the Clinical Chemistry Laboratory if there are any questions. ICa Whole Blood 1.03(L) 1.15 - 1.33 mmol/L [facility] Comment: Noted by aircraft instrument mechanic. Note: ??Total bilirubin higher than 20 mg/dL may lead to falsely low ionized calcium. CL Whole Blood 100 98 - 107 mmol/L [facility] Comment:Noted by aircraft instrument mechanic. Gluc Whole Bld 132 65 - 199 mg/dL [facility] Comment: Noted by aircraft instrument mechanic. Diabetes: >=200 mg/dL plus symptoms Lactate WB 1.0 0.5 - 2.2 mmol/L [facility] Comment:Noted by aircraft instrument mechanic. Blood Gas Source Venous [facility] Blood 02/17/2024 9:34 AM EDT 02/17/2024 9:34 AM EDT Hayder Graham MD POINT OF CARE TEST ORDERABLES [facility] [place] [address] * (ABNORMAL) BLOOD GAS 2 ARTERIAL (02/17/2024 [...] OF CARE TEST ORDERABLES Performing Organization Address City/[facility]/ZIP Co de Phone Number [facility] [place] [address] * POCT Glucose (02/17/2024 6:38 AM EDT) Glucose, POC 98 65 - 199 mg/dL [facility] Comment: Supplemental ranges: <140 mg/dL before meals <180 mg/dL all other times of the day Blood 02/17/2024 6:38 AM EDT 02/17/2024 6:38 AM EDT Hayder Graham MD POINT OF CARE TEST ORDERABLES Performing Organization Address [facility] Co de Phone Number [facility] [place] [address] * Transesophageal Echo/OR (02/17/2024 6:33 AM EDT) [...] complete [facility] [...] Routine documented in this encounter Care Teams Test Puller Relationship Specialty Start Date End Date Aparna Jordan APRN PCP - General Family Medicine 10/21/23 05/26/24 documented as of this encounter
--- OUTSIDE RECORDS SUMMARY | 2024-08-27 10:07 | XMS_ITS | Encounter Summary ---
Author Organization [facility] [place] [address] Care Team Providers Care Instructor Adjunct Pharmacy Technician Name Role Phone Vanessa Christian Lane DOTSON Primary Care Provider [phone] Encounter Details Date Type Department Care Team (Late st Contact Info) Description 01/09/2024 2:30 PM EDT Clinical Support Same Day at [facility] [place] [id number] Social History Tobacco Use Types Packs/Day Years [...] type and screen performed while in the [facility]. Sent to Radiology for chest x-ray. Special medication instructions: None Procedure date: not booked. Darian documented in this encounter Plan of Treatment Not on file documented as of this encounter Visit Diagnoses Not on filedocumented in this encounter Care Teams Instructor Adjunct Pharmacy Technician Relationship Specialty Start Date End Date Vanessa Christian APRN PCP - General Family Medicine 10/21/23 05/26/24 documented as of this encounter
--- OUTSIDE RECORDS SUMMARY | 2024-08-27 10:07 | XMS_ITS | Encounter Summary ---
Author Organization [facility] Address [facility] [place] [address] Care Team Providers Care Billet Recorder Name Role Phone Vanessa Christian MAURI Primary Care Provider [phone] Encounter Details Date Type Department Care Team (Late st Contact Info) Description 02/14/2024 [place] [phone] Zak Farmer MD [facility] DR C[place] [address] Coronary artery disease, unspecified vessel or lesion type, unspecified whether angina present, unspecified whether redding or transplanted heart (Primary Dx) Social History [...] (Bezet) 401 ms MUSE SYSTEM Calculated P [place] -12 degrees MUSE SYSTEM Calculated R [place] 24 degrees MUSE SYSTEM Calculated T [place] 74 degrees MUSE SYSTEM INTERPRETATION Sinus bradycardia T wave abnormality, consider anterior ischemia Abnormal ECG When compared with ECG of 17-FEB-2024 13:24, NE interval has decreased T wave inversion now evident in Anterior leads Confirmed by Paul Guzman ([id number]) on 03/15/2024 8:36:23 AM MUSE SYSTEM 03/12/2024 2:35 PM EDT 03/15/2024 8:36 AM EDT Zak Farmer MD ECG ORDERABLES MUSE SYSTEM * XR Chest PA & Lateral (Generic) (03/12/2024 1:42 PM EDT) Pathologist [facility] WORKSTATION ID [id number] [facility] Anatomical Region Laterality Modality Chest N/A Digital [...] questions please contact the health home care physical therapist that requested your imaging first. ? Electronically signed by: Augie Sanchez MD, [facility] ([phone]), at 03/13/2024 8:28 AM Narrative 03/13/2024 8:28 AM EDT EXAMINATION: XR CHEST PA AND LATERAL (GENERIC) CLINICAL HISTORY: s/p cabg eval effusions I25.10, Atherosclerotic heart disease of redding coronary artery without angina pectoris TECHNIQUE: PA [...] eval effusions I25.10, Atherosclerotic heart disease of redding coronary artery withoutangina pectoris TECHNIQUE: PA and [...] have questions please contactthe health home care physical therapist that requested your imaging first. Electronically signed by: Augie Sanchez MD, [facility]([phone]), at 03/13/2024 8:28 AM Zak Farmer MD IMG DX ORDERABLES documented in this encounter Visit Diagnoses Diagnosis Coronary artery disease, unspecified vessel or lesion type, unspecified whether angina present, unspecified whether redding or transplanted heart- Primary Coronary artery disease, unspecified vessel or lesion type, unspecified whether angina present, unspecified whether redding or transplanted heart documented in this encounter Care Teams Billet Recorder Relationship Specialty Start Date End Date Vanessa Christian APRN PCP - General Family Medicine 10/21/23 05/26/24 documented as of this encounter
--- OUTSIDE RECORDS SUMMARY | 2024-08-27 10:07 | XMS_ITS | Encounter Summary ---
Author Organization [facility]ly [facility] Address [facility] [place] [address] Care Team Providers Care Hospital Insurance Representative Name Role Phone Vanessa Christian MAURI Primary Care Provider [phone] Encounter Details Date Type Department Care Team (Latest Contact Info) Description 01/09/2024 3:02 PM EDT - 01/09/2024 11:59 PM EDT Hospital Encounter XRay at [address] [place] [address] Zak Farmer MD [facility] [place] [address] Nonrheumatic aortic valve stenosis Discharge Disposition: Home [...] questions please contact the health health care social worker that requested your [...] have questions please contactthe health health care social worker that requested your imaging first. Zak Farmer MD IMG DX ORDERABLES documented in this encounter Visit Diagnoses Diagnosis Nonrheumatic aortic valve stenosis Aortic valve disorders documented in this encounter Care Teams Hospital Insurance Representative Relationship Specialty Start Date End Date Vanessa Christian APRN PCP - General Family Medicine 10/21/23 05/26/24 documented as of this encounter
--- OUTSIDE RECORDS SUMMARY | 2024-08-27 10:07 | XMS_ITS | Encounter Summary ---
[place] [address] Care Team Providers Care Shoemaking Finisher Name Role Phone Vanessa Christian MAURI Primary Care Provider [phone] Reason for Visit * Auth/Cert (Routine) Specialty [...] Rima Dickinson MD [facility] [place] [address] [facility] Referral ID Status Reason Start Date Expiration Date Visits Re quested Visits Authorized [id number] 1 1 Encounter Details Date Type Department Care Team (Late st Contact Info) Description 02/03/2024 10:00 AM EDT - 02/03/2024 11:00 AM EDT Surgery Capacity [place] [address] Saira Lua MD CARDIAC CATHETERIZATION Social History [...] lbs Follow-up Visits Follow up with your photographic equipment assembler in 2-4 weeks Access Site 'Black and Blue' and tenderness is expected during the first week Call if you noted a mass (lump) greater than the size of a ellis Call Office with any Questions and if you have any of the following Clarence Lane M.D Interventional Rn Anesthetist Records Management Clerk #: [phone] * Attachments The following attachments cannot be sent through Care Everywhere. * CAD (Coronary Artery Disease): General Info (Eritrean) * Coronary Angiogram: Post-op (Eritrean) documented in this encounter Medications at Time [...] 02/03/2024 11:48 AM EDT [facility] Interventional Cardiology Adult Pre-Procedure H&P Update: Cardiac Catheterization Karlos Anthony [id number] 1960 Chief Complaint: Aortic stenosis HPI: Mr. [...] is inthe chart Clarence Lane MD Interventional Rn Anesthetist 02/03/24 11:48 AM documented in this encounter Miscellaneous Notes * Brief Op Note - Clarence Lane MD - 02/03/2024 12:51 PM EDT Preliminary Cardiac Catheterization Procedure Note: Patient Name: Karlos Anthony : [id number] MR#: [id number] Case Date: 02/03/2024 Records Management Clerk: Surgeon(s) and Role: * Saira Lua [...] Modality Other Narrative 02/12/2024 3:47 PM EDT ?[facility] ? Cardiac Catheterization/Intervention Report ? Patient Name: Patenaude, Karlos ? Procedure Date: 02/03/2024 ? A #: [id number] ? Primary Physician: Mogadam, Emad ? Case #: [id number] ? File Name: [id number] ? Catheterization Order Number: [id number] ? [facility] ? Final Report [place], [place] ? Patient Name: ? Karlos Patenaude ? ID#: ?[id number] ? : ?1960 ? Procedure Date: ? [...] Finalized: 02/12/2024 ??15:43 ? Procedure Note Saira Lau MD - 02/12/2024 [facility] Cardiac Catheterization/Intervention Report Patient Name: Karlos Anthony Procedure Date: 02/03/2024 A #: [id number] Primary Physician: Saira Lua Case #: [id number] File Name: [id number] Catheterization Order Number: [id number] [facility] FinalReport [place], [place] Patient Name: Karlos Anthony ID#:[id number] :1960 Procedure Date: February 03, 2024 Case [...] was designated as ASA Class III. The [facility] clinical frailty scale is 3: [...] (Bezet) 372 ms MUSE SYSTEM Calculated P [place] 59 degrees MUSE SYSTEM Calculated R [place] 34 degrees MUSE SYSTEM Calculated T [place] 63 degrees MUSE SYSTEM INTERPRETATION Sinus bradycardia [...] MD) documented in this encounter Care Teams Shoemaking Finisher Relationship Specialty Start Date End Date Vanessa Christian APRN PCP - General Family Medicine 10/21/23 05/26/24 documented as of this encounter
--- OUTSIDE RECORDS SUMMARY | 2024-08-27 10:07 | XMS_ITS | Encounter Summary ---
Author Organization [facility] [place] [address] Care Team Providers Care Senior Accounting Associate Name Role Phone Vanessa Christian APRN Primary Care Provider [phone] Encounter Details Date Type Department Care Team (Late st Contact Info) Description 01/10/2024 Orders Only [place] [phone] Lawson Napoles PA [facility] [place] [address] Screening for cardiovascular condition; Aortic valve stenosis, [...] unspecified documented in this encounter Care Teams Senior Accounting Associate Relationship Specialty Start Date End Date Vanessa Christian APRN PCP - General Family Medicine 10/21/23 05/26/24 documented as of this encounter
--- OUTSIDE RECORDS SUMMARY | 2024-08-27 10:07 | XMS_ITS | Encounter Summary ---
Author Organization [facility] [place] [address] Care Team Providers Care Section Beamer Name Role Phone Vanessa Christian Lane DOTSON Primary Care Provider [phone] Reason for Referral * Diagnostic Test (Routine) - Closed Specialty Diagnoses / Procedures Referred By Contac t Referred To Contact Radiology Diagnoses Nonrheumatic aortic valve stenosis Procedures CT Chest wo Contrast (Generic) Louisa Cho PA [facility] [place] [address] [facility] [place] [address] Referral ID Status Reason Start Date Expiration Date V isits Requested Visits Authorized [id number] Closed Specialty Service Requested 01/10/2024 07/11/2025 1 1 Reason for Visit * Diagnostic Test (Routine) - Closed Specialty Diagnoses / Procedures Referred By Contac t Referred To Contact Radiology Diagnoses Nonrheumatic aortic valve stenosis Procedures CT Chest wo Contrast (Generic) Louisa Cho PA [facility] [place] [address] [facility] [place] [address] Referral ID Status Reason Start Date Expiration Date V isits Requested Visits Authorized [id number] Closed Specialty Service Requested 01/10/2024 07/11/2025 1 1 Encounter Details Date Type Department Care Team (Latest Contact Info) Description 02/03/2024 7:36 AM EDT - 02/03/2024 8:05 AM EDT Hospital Encounter CT Scan at [facility] [place] [address] Zak Farmer MD [facility] [place] [address] Nonrheumatic aortic valve stenosis Discharge Disposition: Home [...] wo Contrast (Generic) (02/03/2024 7:44 AM EDT) [employer] Signature WORKSTATION ID [id number] RAD Anatomical Region Laterality Modality Chest Computed [...] questions please contact the health critical care cns that requested your imaging first. ? Electronically signed by: Rogerio Wright MD, [facility] ([phone]), at 02/03/2024 10:00 AM Narrative 02/03/2024 10:00 [...] nodule along the minor fissure (series [id number]) and a 8 mm right lower lobe [...] have questions please contactthe health critical care cns that requested your imaging first. Electronically signed by: Rogerio Wright MD, [facility]([phone]), at 02/03/2024 10:00 AM Zak Farmer MD IMG CT ORDERABLES documented in this encounter Visit Diagnoses Diagnosis Nonrheumatic aortic valve stenosis Aortic valve disorders documented in this encounter Care Teams Section Beamer Relationship Specialty Start Date End Date Vanessa Christian APRN PCP - General Family Medicine 10/21/23 05/26/24 documented as of this encounter
--- OUTSIDE RECORDS SUMMARY | 2024-08-27 10:08 | XMS_ITS | Encounter Summary ---
[facility] Organization [facility] [place] [address] Care Team Providers Care Hogshead Mat Assembler Name Role Phone Victor M Lafleur MD Primary Care Provider [phone] Encounter Details Date Type Department Care Team (Late st Contact Info) Description 09/26/2023 Abstract Cardiology at [address] [address] Karen Billy, RN Nonrheumatic aortic [...] face documented in this encounter Care Teams Hogshead Mat Assembler Relationship Specialty Start Date End Date Victor M Lafleur MD PCP - General 10/02/13 10/20/23 documented as of this encounter
--- OUTSIDE RECORDS SUMMARY | 2024-08-27 10:08 | XMS_ITS | Encounter Summary ---
Author Organization [facility] Address [facility] [address]ana lin[address]seileen [place] [id number] Care Team Providers Care Lawn Care Technician Name Role Phone Vanessa Christian MAURI Primary Care Provider [phone] Reason for Referral * Consultation (Routine) - Closed Specialty Diagnoses / Procedures Referred By Contac t Referred To Contact Cardiac Surgery Diagnoses Nonrheumatic aortic valve stenosis significant - TAVR ( defers to Card Surg d/t age) Errol Loya MD [facility] [place] [address] Zak Farmer MD [facility] [place] [address] Referral ID Status Reason Start Date Expiration Date V isits Requested Visits Authorized [id number] Closed Consult, Test & Treat 10/21/2023 10/20/2024 1 1 Reason for Visit * Reason Comments Chest Pain Shortness of Breath Aortic Stenosis Encounter Details Date Type Department Care Team (Late st Contact Info) Description 10/21/2023 1:20 PM EST Office Visit Cardiology at [address] [address] Errol Loya MD [facility] [place] [address] Nonrheumatic aortic valve stenosis Social History Tobacco [...] Problem List Diagnosis Aortic stenosis 12/2022 TTE ([facility]): VITA 0.8-0.9 cm2 (MG 28 mmHg, DOI 3.6 m/s, SVI 35 cc/m2). Trace regurgitation. Normal bi-v s/f, no other valve findings Gastroesophageal reflux Nevus of face Right denominational Hypertension HLD (hyperlipidemia) MEDICATIONS: Current Outpatient Medications [...] the meantime will refer to [facility] at [facility] for further evaluation. Logistics and preliminary review [...] the meantime will refer to T at [facility] for further evaluation. Logistics and preliminary review [...] disorders documented in this encounter Care Teams Lawn Care Technician Relationship Specialty Start Date End Date Vanessa Christian APRN PCP - General Family Medicine 10/21/23 05/26/24 documented as of this encounter
--- OUTSIDE RECORDS SUMMARY | 2024-08-27 10:08 | XMS_ITS | Encounter Summary ---
Author Organization [facility] [place] [address] Care Team Providers Care Impregnator And Drier Helper Name Role Phone Vanessa Christian APRN Primary Care Provider [phone] Encounter Details Date Type Department Care Team [...] on filedocumented in this encounter Care Teams Impregnator And Drier Helper Relationship Specialty Start Date End Date Vanessa Christian APRN PCP - General Family Medicine 10/21/23 05/26/24 documented as of this encounter
--- OUTSIDE RECORDS SUMMARY | 2024-08-27 10:08 | XMS_ITS | Encounter Summary ---
Author Organization [facility] [place] [address] Care Team Providers Care Drop Forger Name Role Phone Vanessa Christian APRN Primary Care Provider [phone] Encounter Details Date Type Department Care Team (Late st Contact Info) Description 10/21/2023 Abstract Cardiology at [address] [place] [phone] Adam Mayes RN Social History Tobacco Use [...] on filedocumented in this encounter Care Teams Drop Forger Relationship Specialty Start Date End Date Vanessa Christian APRN PCP - General Family Medicine 10/21/23 05/26/24 documented as of this encounter
--- OUTSIDE RECORDS SUMMARY | 2024-08-27 10:08 | XMS_ITS | Encounter Summary ---
Author Organization [facility] [place] [place] [address] Care Team Providers Care Automatic Machines Supervisor Name Role Phone Vanessa Christian APRN Primary Care Provider [phone] Encounter Details Date Type Department Care Team (Late st Contact Info) Description 10/21/2023 Abstract Cardiology at [address] [place] [place] [phone] Adam Mayes RN Social History Tobacco Use [...] on filedocumented in this encounter Care Teams Automatic Machines Supervisor Relationship Specialty Start Date End Date Vanessa Christian APRN PCP - General Family Medicine 10/21/23 05/26/24 documented as of this encounter
--- OUTSIDE RECORDS SUMMARY | 2024-08-27 10:08 | XMS_ITS | Encounter Summary ---
Author [place] [address] Care Team Providers Care Physical Education Aide Name Role Phone Victor M Lafleur MD Primary Care Provider [phone] Reason for Visit * Reason Onset Date Comments Referral 09/20/2023 Encounter Details Date Type Department Care Team (Late st Contact Info) Description 09/20/2023 Telephone Cardiology at [address] [address] Karen Billy, piano accompanist Social History Tobacco Use Types Packs/Day Years [...] on filedocumented in this encounter Care Teams Physical Education Aide Relationship Specialty Start Date End Date Victor M Lafleur MD PCP - General 10/02/13 10/20/23 documented as of this encounter
--- OUTSIDE RECORDS SUMMARY | 2024-08-27 10:08 | XMS_ITS | Encounter Summary ---
Author Organization [facility] [address] Care Team Providers Care Program Aide Group Work Name Role Phone Vanessa Chrsitian APRN Primary Care Provider [phone] Encounter Details Date Type Department Care Team [...] on filedocumented in this encounter Care Teams Program Aide Group Work Relationship Specialty Start Date End Date Vanessa Christian APRN PCP - General Family Medicine 10/21/23 05/26/24 documented as of this encounter
--- OUTSIDE RECORDS SUMMARY | 2024-08-27 10:08 | XMS_ITS | Encounter Summary ---
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 ( defers to Card Surg d/t age) Neftali Ernandez MD [facility] [place] [address] Zak Farmer MD [facility] [place] [address] Referral ID Status Reason Start Date Expiration Date V isits Requested Visits Authorized [id number] Closed Consult, Test & Treat 10/21/2023 10/20/2024 1 1 Encounter Details Date Type Department Care Team (Late st Contact Info) Description 01/09/2024 1:40 PM EDT Office Visit [place] [address] Zak Farmer MD [facility] [place] [address] Nonrheumatic aortic valve stenosis Social [...] office. Best personal regards, Zak Farmer MD [phone] In aggregate 55 minutes were spent evaluating [...] have questions please contact the health care consultant that requested your imaging first. [...] who have questions please contactthe health care consultant that requested your imaging first. Zak [...] CHEMISTRY ORDERABLE S [facility] [place] [address] * Hepatic Function Panel (01/09/2024 2:58 PM [...] S Performing Organization Address [facility] Co de Phone Number [facility] [place] [address] * Prothrombin Time (01/09/2024 2:58 PM EDT) [...] HEMATOLOGY ORDERABL ES Performing Organization Address [facility] Co de Phone Number [facility] [place] [address] * Type and Screen Future Surgery, [facility] SAME DAY PROGRAM ONLY) (01/09/2024 2:58 PM EDT) ABORH Type O NEGATIVE [facility] Patient BB History Not Found [facility] Expires at [id number] on: 02-20-2024 [facility] Ab Screen Interp Negative [facility] Blood 01/09/2024 2:58 PM EDT 01/09/2024 2:58 PM EDT Narrative Resulting Agency Comment Spec In Lab Zak Farmer MD [facility] A[facility] Performing Organization Address City/State/[facility] Co de Phone Number [facility] [place] [address] documented in this encounter Visit Diagnoses Diagnosis Nonrheumatic aortic valve stenosis Aortic valve disorders Nonrheumatic aortic valve stenosis Aortic valve disorders documented in this encounter Care Teams University Partnership Rep Relationship Specialty Start Date End Date Vanessa Christian, BEHAVIORAL INTERVENTION SPECIALIST PCP - General Family Medicine 10/21/23 05/26/24 documented as of this encounter
--- OUTSIDE RECORDS SUMMARY | 2024-08-27 10:08 | XMS_ITS | Encounter Summary ---
Author Organization [facility] [place] [address] Care Team Providers Care Die Casting Machine Setter Name Role Phone Vanessa Christian APRN Primary Care Provider [phone] Encounter Details Date Type Department Care Team (Late st Contact Info) Description 12/26/2023 Notes Only Cardiology at [address] [place] [address] Neftali Ernandez MD [facility] [place] [address] Social History Tobacco Use Types Packs/Day Years [...] PM EDT Echocardiogram images reviewed from [facility]. Indeed, the aortic valve appears severely stenotic. Cannotrule out bicuspid valve documented in this encounter Plan of Treatment Not on file documented as of this encounter Visit Diagnoses Not on filedocumented in this encounter Care Teams Die Casting Machine Setter Relationship Specialty Start Date End Date Vanessa Christian APRN PCP - General Family Medicine 10/21/23 05/26/24 documented as of this encounter
[2024-08-27 10:09] VITALS: BP 127/62; PULSE 49
== END 2024-09-05 23:59 | disposition home or self-care (01) ==
LOC: CR 10:03
PROVIDERS: PCP Nurse Practitioner Family; Visit Provider Internal Medicine Cardiovascular Disease
DX: R69 Illness, unspecified (principal)

== ENCOUNTER 2024-10-06 10:48 | Outpatient (RCR) | payer SELFPAY ==
[2024-09-06 00:23] VITALS: BP 123/61; PULSE 50
[2024-09-08 10:39] VITALS: BP 126/68; PULSE 53
[2024-09-10 09:57] VITALS: BP 136/73; PULSE 67
[2024-09-15 10:11] VITALS: BP 114/61; PULSE 57
[2024-09-17 09:59] VITALS: BP 112/60; PULSE 59
--- OUTSIDE RECORDS SUMMARY | 2024-09-17 10:04 | XMS_ITS | Encounter Summary ---
Author Organization [facility] Address [facility] [place] [address] Care Team Providers Care Regulatory Intern Name Role Phone Gino Vanessa Lane DOTSON Primary Care Provider [phone] Encounter Details Date Type Department Care Team (Late st Contact Info) Description 02/24/2024 Orders Only Cardiac Surgery [facility] [place] [phone] Trudi Lester APRN [facility] [place] [address] Social History Tobacco Use Types Packs/Day Years Used Date Smoking Tobacco: Former Cigarettes Smokeless Tobacco: Never Comments:Quit 15 + years ago Alcohol Use Standard Drinks/Week Comments Yes 0 (1 standard drink = 0.6 oz pur e alcohol) rare [facility] Utilities Answer Date Recorded In the past 12 months has e [employer], gas, oil, or water [employer] threatened to shut off services in your [...] on filedocumented in this encounter Care Teams Regulatory Intern Relationship Specialty Start Date End Date Vanessa Christian APRN PCP - General Family Medicine 10/21/23 05/26/24 documented as of this encounter
--- OUTSIDE RECORDS SUMMARY | 2024-09-17 10:04 | XMS_ITS | Referral Summary ---
Author Organization [facility] Address [address] [place] [address] Care Team Providers Care Carbon Sequestration Plant Operator Name Role Phone Vanessa Christian Lane MONCADA Primary Care Provider [phone] Social History Tobacco Use Types Packs/Day Years Used Date Smoking Tobacco: Never Assessed Sex and Gender Information Value Date Recorded Sex Assigned at Not on file Legal Sex Male 22:02 EST Gender Identity Not on file Sexual Orientation Not on file Plan of Treatment Not on file Insurance [facility] Care Teams Carbon Sequestration Plant Operator Relationship Specialty Start Date End Date Vanessa Christian, ANTWAN [address] [place] [phone] PCP - General Family Medicine - Primary Care 10/07/23
--- OUTSIDE RECORDS SUMMARY | 2024-09-17 10:04 | XMS_ITS | Encounter Summary ---
Author Organization [facility] Address [facility] [place] [address] Care Team Providers Care Worm Packer Name Role Phone Vanessa Christian Lane DOTSON Primary Care Provider [phone] Reason for Visit * Reason Comments Coronary Artery Disease Aortic Stenosis Encounter Details Date Type Department Care Team (Latest Contact Info) Description 05/27/2024 11:00 AM EDT Office Visit Cardiology at [address] [phone] Neftali Ernandez MD [facility] [place] [address] ASCVD (arteriosclerotic cardiovascular disease); Nonrheumatic aortic valve stenosis Social History Tobacco Use Types Packs/Day Years Used Date Smoking Tobacco: Former Cigarettes Smokeless Tobacco: Never Comments:Quit 15 + years ago Alcohol Use Standard Drinks/Week Comments Yes 0 (1 standard drink = 0.6 oz pur e alcohol) rare [facility] Utilities Answer Date Recorded In the past 12 months has e [employer], gas, oil, or water [employer] threatened to shut off services in your [...] disorders documented in this encounter Care Teams Worm Packer Relationship Specialty Start Date End Date Vanessa Christian, MAURI [address] [place] [address] PCP - General Family Medicine 05/27/24 documented as of this encounter
--- OUTSIDE RECORDS SUMMARY | 2024-09-17 10:04 | XMS_ITS | Clinical Summary ---
Author Organization [facility] Address [facility] [place] [address] Care Team Providers Care Barrel Lathe Operator Inside Name Role Phone Vanessa Chrisitan Lane DOTSON Primary Care Provider [phone] Allergies No known active allergies Medications Medication [...] of face 09/26/2023 05/27/2024 Overview (09/26/2023): Right confucianism Chest pressure 08/14/2023 10/21/2023 SILVA (dyspnea on exertion) 08/14/2023 HLD (hyperlipidemia) 08/14/2023 024 Social History Tobacco Use Types Packs/Day Years Used Date Smoking Tobacco: Former Cigarettes Smokeless Tobacco: Never Comments:Quit 15 + years ago Alcohol Use Standard Drinks/Week Comments Yes 0 (1 standard drink = 0.6 oz pur e alcohol) rare [facility] Utilities Answer Date Recorded In [...] Advance Directive 2014 Covid-19 Vaccine (1 - 2023- season) 2024 Influenza (Flu) vaccine (1 o f 1 - Influenza standard series) 06/07/2024 Pneumoccocal Vaccine: 65+ (1 of 1 - PCV) 2024 Medical Devices Implanted Type Area Flour Mixer Helper Device Identifier Shelf Expiration Date Model / Serial / Lot Cable,Cut,Edg ,Blnt,Ss,3tpr ([id number]) - [id number] Implanted:Qty : 1 on 02/17/2024 by Zak Farmer MD at [facility] IMPLANTS Midline: Chest [employer] - [id number] 09/02/2028 [id number] / / [id number] Valve Coronary Aortic 23mm Tissue Trnscath Biopros Inspiris ([id number]) (Autoreq) - [id number] Implanted:Qty : 1 on 02/17/2024 by Zak Farmer MD at [facility] IMPLANTS Heart [employer] - TSAI LI 09/15/2027 [id number] / [id number] / Advance Directives * Attempt Cardiopulmonary Resuscitation - [...] Status decision made by: Patient Care Teams Barrel Lathe Operator Inside Relationship Specialty Start Date End Date Vanessa Christian, MAURI [address] [place] [address] PCP - General Family Medicine 05/27/24
--- OUTSIDE RECORDS SUMMARY | 2024-09-17 10:04 | XMS_ITS | Encounter Summary ---
Author Organization [facility] Address [facility] [place] [address] Care Team Providers Care Active Directory Specialist Name Role Phone Vanessa Christian CORRESPONDENCE DICTATOR Primary Care Provider [phone] Encounter Details Date Type Department Care Team (Late st Contact Info) Description 03/12/2024 2:40 PM EDT Office [place] [phone] Zak Farmer MD [facility] [place] [address] Coronary artery disease, unspecified vessel or lesion type, unspecified whether angina present, unspecified whether eek or transplanted heart Social History Tobacco Use Types Packs/Day Years Used Date Smoking Tobacco: Former Cigarettes Smokeless Tobacco: Never Comments:Quit 15 + years ago Alcohol Use Standard Drinks/Week Comments Yes 0 (1 standard drink = 0.6 oz pur e alcohol) rare [facility] Utilities Answer Date Recorded In the past 12 months has e [employer], gas, oil, or water [employer] threatened to shut off services in your [...] 2:40 PM EDT To: MD Vanessa Coles, CORRESPONDENCE DICTATOR Re; Karlos Santa ( 1960) We had [...] office. Best personal regards, Zak Farmer MD [phone] documented in this encounter Plan of Treatment Not on file documented as of this encounter Procedures Procedure Name Priority Date/Time Associated Diagnosis Comments EKG 12-LEAD Routine 03/12/2024 2:35 PM EDT Coronary artery disease, unspecified vessel or lesion type, unspecified whether angina present, unspecified whether eek or transplanted heart documented in this encounter Results * EKG 12 Lead (03/12/2024 2:35 PM EDT) Ventricular rate 59 BPM MUSE SYSTEM Atrial Rate 59 BPM MUSE SYSTEM P-R Interval 190 ms MUSE SYSTEM QRS Duration 92 ms MUSE SYSTEM Q-T Interval 406 ms MUSE SYSTEM QTC Calculated (Bezet) 401 ms MUSE SYSTEM Calculated P Patterson -12 degrees MUSE SYSTEM Calculated R Patterson 24 degrees MUSE SYSTEM Calculated T Patterson 74 degrees MUSE SYSTEM INTERPRETATION Sinus bradycardia T wave abnormality, consider anterior ischemia Abnormal ECG When compared with ECG of 17-FEB-2024 13:24, NV interval has decreased T wave inversion now evident in Anterior leads Confirmed by Paul Guzman ([id number]) on 03/15/2024 8:36:23 AM MUSE SYSTEM 03/12/2024 2:35 PM EDT 03/15/2024 8:36 AM EDT Zak Farmer MD ECG ORDERABLES [employer] SYSTEM documented in this encounter Visit Diagnoses Diagnosis Coronary artery disease, unspecified vessel or lesion type, unspecified whether angina present, unspecified whether eek or transplanted heart documented in this encounter Care Teams Active Directory Specialist Relationship Specialty Start Date End Date Vanessa Christian, MAURI PCP - General Family Medicine 10/21/23 05/26/24 documented as of this encounter
--- OUTSIDE RECORDS SUMMARY | 2024-09-17 10:04 | XMS_ITS | Encounter Summary ---
Author Organization [facility] Address [facility] [place] [address] Care Team Providers Care Stamper Blocker Name Role Phone Vanessa Christian MAURI Primary Care Provider [phone] Encounter Details Date Type Department Care Team [...] on filedocumented in this encounter Care Teams Stamper Blocker Relationship Specialty Start Date End Date Vanessa Christian APRN [address] [place] [address] PCP - General Family Medicine 05/27/24 documented as of this encounter
--- OUTSIDE RECORDS SUMMARY | 2024-09-17 10:04 | XMS_ITS | Clinical Summary ---
Author Organization [facility] Address [address] [place] [address] Care Team Providers Care Ep Tech Name Role Phone Filidayna Vanessa Sherman NP Primary Care Provider [phone] Social History Tobacco Use Types Packs/Day Years [...] 75+ series) 2034 Insurance [employer] Care Teams Ep Tech Relationship Specialty Start Date End Date Vanessa Christian, ANTWAN [address] [place] [phone] PCP - General Family Medicine - Primary Care 10/07/23
--- OUTSIDE RECORDS SUMMARY | 2024-09-17 10:04 | XMS_ITS | Encounter Summary ---
Author Organization [facility] Address [address] [place] [address] Care Team Providers Care Clearing Supervisor Name Role Phone Filidayna Vanessa Dayna MONCADA Primary Care Provider [phone] Encounter Details Date Type Department Care Team (Late st Contact Info) Description 10/24/2023 Lab Requisition [facility] Pathology & Laboratory Medicine - [address] [address] Oscar Nichole MD [address] [place] [address] [phone] Factitial dermatitis Social History Tobacco Use Types [...] management options, if applicable. 10/28/2023 11:24 EST [facility] Final Diagnosis A. SKIN OF CHEONDOISM, LEFT, SHAVE BIOPSY: - Seborrheic keratosis, pigmented. 10/28/2023 11:24 EST [facility] Attestation By the signature below, [...] patient identification (initials P, A) and left sikh is a shave biopsy of an irregular [...] [facility] Performing Lab [facility] 10/28/2023 11:24 [facility] Scanned Images 10/28/2023 11:24 [facility] Tissue SPECIMEN FROM SKIN / Unknown 10/24/2023 14:30 EST 10/24/2023 22:04 EST us Oscar Nichole MD PATHOLOGY ORDERABLES Final Resul t [facility] [address] [place] [address] documented in this encounter Visit Diagnoses Diagnosis Factitial dermatitis Dermatitis factitia (artefacta) documented in this encounter Care Teams Clearing Supervisor Relationship Specialty Start Date End Date Vanessa Christian NP [address] [place] [address] PCP - General Family Medicine - Primary Care 10/07/23 documented as of this encounter
--- OUTSIDE RECORDS SUMMARY | 2024-09-17 10:04 | XMS_ITS | Encounter Summary ---
Author Organization [facility] Address [facility] [place] [address] Care Team Providers Care Building Maintenance Supervisor Name Role Phone Vanessa Christian MAURI Primary Care Provider [phone] Encounter Details Date Type Department Care Team (Latest Contact Info) Description 03/12/2024 1:30 PM EDT - 03/12/2024 11:59 PM EDT Hospital Encounter XRay at [address] [place] [address] Coronary artery disease, unspecified vessel or lesion type, unspecified whether angina present, unspecified whether [place] or transplanted heart Discharge Disposition: Home Social History Tobacco Use Types Packs/Day Years Used Date Smoking Tobacco: Former Cigarettes Smokeless Tobacco: Never Comments:Quit 15 + years ago Alcohol Use Standard Drinks/Week Comments Yes 0 (1 standard drink = 0.6 oz pur e alcohol) rare [facility] Utilities Answer Date Recorded In the past 12 months has e [employer], gas, oil, or water [employer] threatened to shut off services in [...] type, unspecified whether angina present, unspecified whether [place] or transplanted heart documented in this encounter Results * XR Chest PA & Lateral (Generic) (03/12/2024 1:42 PM EDT) WORKSTATION ID [id number] RAD Anatomical Region Laterality Modality Chest N/A [...] have questions please contact the health healthcare project manager that requested your imaging first. ? Narrative 03/13/2024 8:28 AM EDT EXAMINATION: XR CHEST PA AND LATERAL (GENERIC) CLINICAL HISTORY: s/p cabg eval effusions I25.10, Atherosclerotic heart disease of [place] coronary artery without angina pectoris TECHNIQUE: PA [...] eval effusions I25.10, Atherosclerotic heart disease of [place] coronary artery withoutangina pectoris TECHNIQUE: PA and [...] who have questions please contactthe health healthcare project manager that requested your imaging first. aZk Farmer MD IMG DX ORDERABLES documented in this encounter Visit Diagnoses Diagnosis Coronary artery disease, unspecified vessel or lesion type, unspecified whether angina present, unspecified whether [place] or transplanted heart documented in this encounter Care Teams Building Maintenance Supervisor Relationship Specialty Start Date End Date Vanessa Christian APRN PCP - General Family Medicine 10/21/23 05/26/24 documented as of this encounter
--- OUTSIDE RECORDS SUMMARY | 2024-09-17 10:04 | XMS_ITS | Encounter Summary ---
Author Organization [facility] Address [facility] [place] [address] Care Team Providers Care Career Guidance Counselor Name Role Phone Vanessa Christian MAURI Primary Care Provider [phone] Encounter Details Date Type Department Care Team (Latest Contact Info) Description 03/12/2024 Travel Social History Tobacco Use Types Packs/Day Years Used Date Smoking Tobacco: Former Cigarettes Smokeless Tobacco: Never Comments:Quit 15 + years ago Alcohol Use Standard Drinks/Week Comments Yes 0 (1 standard drink = 0.6 oz pur e alcohol) rare [facility] Utilities Answer Date Recorded In the past [...] in this encounter Care Teams Career Guidance Counselor Relationship Specialty Start Date End Date Vanessa Christian APRN PCP - General Family Medicine 10/21/23 05/26/24 documented as of this encounter
--- OUTSIDE RECORDS SUMMARY | 2024-09-17 10:04 | XMS_ITS | Encounter Summary ---
Author Organization [facility] Address [facility] [place] [address] Care Team Providers Care Mesh Man Name Role Phone Vanessa Christian MAURI Primary Care Provider [phone] Encounter Details Date Type Department Care Team (Latest Contact Info) Description 05/20/2024 Travel Social History Tobacco Use Types Packs/Day Years Used Date Smoking Tobacco: Former Cigarettes Smokeless Tobacco: Never Comments:Quit 15 + years ago Alcohol Use Standard Drinks/Week Comments Yes 0 (1 standard drink = 0.6 oz pur e alcohol) rare [facility] Utilities Answer Date Recorded In [...] on filedocumented in this encounter Care Teams Mesh Man Relationship Specialty Start Date End Date Vanessa Christian APRN PCP - General Family Medicine 10/21/23 05/26/24 documented as of this encounter
--- OUTSIDE RECORDS SUMMARY | 2024-09-17 10:05 | XMS_ITS | Encounter Summary ---
[place] [address] Care Team Providers Care Child Care Cook Name Role Phone Aparna Jordan MAURI Primary Care Provider [phone] Reason for Referral * Diagnostic Test (Routine) - New Request Specialty Diagnoses / Procedures Referred By Contac t Referred To Contact Cardiology Diagnoses S/P AVR Procedures Echocardiogram Transthoracic Neftali Menon PA [facility] CARDIOTHORACIC [place] [address] [facility] [place] [address] Referral ID Status Reason Start Date Expiration Date Visits Requested Visits Authorized [id number] New Request Specialty Service Requested 02/24/2024 02/23/2025 1 1 * Consultation (Routine) - Closed Specialty Diagnoses / Procedures Referred By Contac t Referred To Contact Cardiology Diagnoses S/P AVR Hayder Graham MD [facility] CARDIOTHORACIC [place] [address] Cardiac Rehab, [facility] [address] [place] [address] [place] [address] Referral ID Status Reason Start Date Expiration Date V isits Requested Visits Authorized [id number] Closed Consult, Test & Treat 02/24/2024 08/22/2024 36 36 * Home Health Care (Routine) - Closed Specialty Diagnoses / Procedures Referred By Sixto mendoza Referred To Contact Diagnoses S/P AVR Hayder Graahm MD [facility] CARDIOTHORACIC [place] [address] Referral ID Status Reason Start Date Expiration Date V isits Requested Visits Authorized [id number] Closed Consult, Test & Treat 02/24/2024 08/22/2024 [...] Graham MD [facility] CARDIOTHORACIC [place] [address] [facility] Referral ID Status Reason Start Date Expiration Date Visits Re quested Visits Authorized [id number] 1 1 Encounter Details Date Type Department Care Team (Latest Contact Info) Description 02/17/2024 5:43 AM EDT - 02/24/2024 11:23 AM EDT Hospital Encounter Heart and Vascular Unit Level 4 [place] [address] Hayder Graham MD [facility] CARDIOTHORACIC [place] [address] S/P AVR (Primary Dx); Aortic valve stenosis, [...] weeks. Patient to follow up with Agricultural Chemist, Neftali Ernandez MD , in 2 weeks. Patient to follow up with Cardiac Surgeon, Dr. Hayder Graham, with a chest x-ray, EKG, and Echo. Inpatient Provider Contact Information: [facility] Section of Cardiac Surgery [facility] [address] FAX [phone] Discharge Diagnoses (Hospital Problems) Primary Diagnoses: /CAD [...] insufficiency. He has glaucoma. He used to [employer] until about 15 years ago. He has undergone prior herniorrhaphy. 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 Major Procedures/Operations: 02/17/24 s/p avr/cabgx3 CABG x 3 JOSE->LAD SVG->dRCA SVG->OM1 EVH from LLE AVR with a 23 mm Inspiris Bioprosthesis Hospital Course: Karlos Garcia was admitted to [facility] on 02/17/2024 via the Same Day [...] Hayder Graham and/or the Cardiac Surgery Physician Stitcher Operator Team may be reached at . [...] Please refer to the card with the [place] [employer] Guidelines for more information. You [...] Dr. Hayder Graham. You may use a [place] Track or treadmill but avoid any [...] friends, go to a movie, go to evangelical, etc. Heavy activities: No hunting, skiing, jogging, [...] should resume a low fat, low cholesterol, [place] [employer] Diet. Driving: No driving until [...] being managed by your PCP and/or Agricultural Chemist. For future medication refills, please refer to your PCP and/or Agricultural Chemist after your discharge from our service. Thank you REMOVE CHEST TUBE SUTURES ON OR AFTER 03/02/24 Home oxygen therapy: N/A Follow up appointments: You should follow up with your PCP, Aparna Jordan APRN, in 1-2 weeks. Our office will schedule an appointment with your Agricultural Chemist, Neftali Ernandez MD , in 2 weeks. You have an appointment with your Cardiac Surgeon, Dr. Hayder Graham, 4 weeks with a chest x-ray, EKG, and Echo before your appointment. Cardiac Rehabilitation: Karlos Garcia was seen regarding participation in the outpatient Phase 2Cardiac Rehabilitation at [facility]. The patient agrees to a referral to this program. The referral will be sent at discharge and the patient should be contacted by the Program within 1- 2 weeks from discharge. Future Appointments and Orders Future Orders Complete By Expires Echocardiogram Transthoracic [62037 CPT(R)] 03/26/2024 09/25/2024 Process Instructions: Scheduling Instructions: Questions: Where will study be performed?: [facility] Does the patient have Congenital Heart Disease?: Does patient require sedation?: Sedation rationale: XR Chest PA & Lateral (Generic) [66371 30821 Custom] 03/26/2024 09/25/2024 Process Instructions: Scheduling Instructions: Questions: Portable exam?: Reason for exam and clinical history: s/p avr/cabg Clinical information / jerome questions for radiologist: Stat read required?: Date of injury if applicable: Requested Time: Where will study be performed?: [facility] Radiology Referral to Cardiac Rehab [[id number] Custom] As directed Process Instructions: If no progress note charted, please enter Clinical details in comments. Scheduling Instructions: Questions: My question or request is: s/p AVR/CABG. Cardiac rehab at [facility]. Referral to Home Health [REF34 Custom] As directed Process Instructions: If no progress note charted, please enter Clinical details in comments. Scheduling Instructions: Comments: Please evaluate Karlos Garcia for admission to Home Health. [address] Phone Number: Date of : 1960 Inpatient DOCUMENTATION FOR VNA SERVICES (INCLUDING THOSE PATIENTS WITH MEDICARE COVERAGE REQUIRING HOME VNA SERVICES AND/OR HOSPICE SERVICES) PATIENT'S LOCATION: Karlos Garcia [address]Ring [phone] Parts Facilitator's Name: self/family In discussion with the attending physician, it is certified that this patient is under their care and that they, or a Nurse Practitioner, or Physician Stitcher Operator who is working directly with them, [...] for services as follows: HOME HEALTH AGENCY: [facility]. [address] [place] [address] RN orders: Cardiopulmonary assessment, incisional assessment, assess [...] issues please call the Cardiology Office at [phone] FOR MEDICARE ONLY: (please delete this section [...] [facility] Section of Cardiac Surgery [facility] [address] FAX [phone] Date: 02/24/2024 CC: Aparna Jordan, MAURI Jordan, Aparna Sherman APRN [address] [place] [address] documented in this encounter Discharge Instructions * [...] Hayder Graham and/or the Cardiac Surgery Physician Stitcher Operator Team may be reached at . [...] Please refer to the card with the [place] Heart [employer] Guidelines for more information. You [...] Dr. Hayder Graham. You may use a [place] Track or treadmill but avoid any [...] friends, go to a movie, go to evangelical, etc. Heavy activities: No hunting, skiing, jogging, [...] should resume a low fat, low cholesterol, [place] [employer] Diet. Driving: No driving until [...] being managed by your PCP and/or Agricultural Chemist. For future medication refills, please refer to your PCP and/or Agricultural Chemist after your discharge from our service. Thank you REMOVE CHEST TUBE SUTURES ON OR AFTER 03/02/24 Home oxygen therapy: N/A Follow up appointments: You should follow up with your PCP, Aparna Jordan APRN, in 1-2 weeks. Our office will schedule an appointment with your Agricultural Chemist, Neftali Ernandez MD , in 2 weeks. You have an appointment with your Cardiac Surgeon, Dr. Hayder Graham, 4 weeks with a chest x-ray, EKG, and Echo before your appointment. Cardiac Rehabilitation: Karlos Garcia was seen regarding participation in the outpatient Phase 2Cardiac Rehabilitation at [facility]. The patient agrees to [...] 0600 and on the weekends please page [phone]. * Eric Barahona PA - 02/23/2024 9:27 [...] 0600 and on the weekends please page [phone]. * Tiffanie Owens PTA - 02/22/2024 2:48 [...] d/c for 10 days. 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 He works Precautions/Special Considerations: STERNAL [...] LRAD and supervision Time IN / OUT: 0704-9971 Total Time: 30 minutes; TEFx2 Tiffanie Owens Pager: [phone] Physical Therapy Inpatient Rehabilitation Department * Romeo [...] 0600 and on the weekends please page [phone]. * Kelley Hinson, SLAB GRINDER - 02/21/2024 10:15 AM EDT Physical Therapy [...] d/c for 10 days. 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 He works Precautions/Special Considerations: STERNAL [...] LRAD and supervision Time IN / OUT: 0147-2392 Total Time: 25 minutes; TEF 2 Kelley Hinson SLAB GRINDER Pager: [phone] Physical Therapy Inpatient Rehabilitation Department * Louisa [...] weekends please page [phone]. * Kelley Hinson PTA - 02/20/2024 3:32 PM EDT 02/20/24 2878 Evaluation & Treatment Document Type contact Total Minutes, Physical Therapy 0 Comment, Session Not Performed Checked in w/ pt this PM for ongoing PT services, pt politely declined, stating he had been dealing w/ nausea all day, made plan to see him tomorrow morning, will f/u at that time Kelley Hinson PTA Pager: [phone] Physical Therapy Inpatient Rehab Department * Louisa [...] 0600 and on the weekends please page [phone]. * Maris Benavides, PT - 02/19/2024 11:22 [...] d/c for 10 days. 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 He works. Precautions/Special Considerations: STERNAL [...] outlined inthis evaluation. MARIS BENAVIDES, PT Pager: [phone] Physical Therapy Inpatient Rehabilitation Department Time IN / OUT: 3284-9824 Total Time: 38 (eval) minutes; * Antonio [...] 0600 and on the weekends please page [phone]. * Minnie Begum PA - 02/18/2024 8:25 [...] 0600 and on the weekends please page [phone]. * Kim Ha RCP - 02/17/2024 2:25 [...] plan since last visit. Hayder Graham MD [phone] Source Note - Hayder Graham MD - [...] insufficiency. He has glaucoma. He used to [employer] until about 15 years ago. He [...] given written informed consent. Hayder Graham MD [phone] * Hayder Graham MD - 02/17/2024 7:00 [...] given written informed consent. Hayder Graham MD [phone] documented in this encounter Miscellaneous Notes * [...] information for follow-up Home Health & Hospice, [address] [place] [address] Cardiac Rehab, [facility] [address] [facility] [place] [address] Transportation: family or friend will provide Functional status prior to admission: Independent Home Environment: Others in the home: alone. Current Living Arrangements: home/apartment/condo. Accessibility Concerns:a few steps to enter 1 floor home. Current Functional Ability: Assistive Person and Equipment DME used at home: none DME Needed at Discharge: N/A Patient is insured through: Primary Insurance: [employer] Payor: [facility] / Plan: [facility] PPO / Product Type: *No Product [...] pain managed with scheduled Tylenol. Worked with [employer]. Ambulated in the roque multiple times during [...] anticipated Patient is insured through: Primary Insurance: [employer] Payor: [facility] / Plan: [facility] PPO / Product Type: *No Product type* / Secondary Insurance: N/A Last Physical Therapy Recommendation: home with home health (Str coming to stay for a week or two upon d/c) with to be determined (owns rolling walker, shower seat) Plan for discharge is: Home w/ Services Outpatient Agency/Support Group Needs: Homecare agency Home Health Services: Physical Therapy, Registered Nurse Agency Referrals: [facility] [address] [address] Transportation: family or friend will provide Barriers to discharge: Discharge planning Plan going forward: Service Care Management will continue to follow and assist with discharge planning and coordination of care as indicated. Anticipated Date of Discharge: 02/22/2024 Rhett Bell RN RN/CM - Cellphone: [phone] Pager: [phone] Covering Service RN/CM * Plan of Care [...] RN - 02/19/2024 10:[address] [facility] CARDIAC REHABILITATION Karlos Garcia was seen today regarding participation in the outpatient Phase 2 Cardiac Rehabilitation at [facility]. The patient agrees to [...] receiving care in [place] must abide by [place] law. The hierarchy [...] In the past 12 months has the [employer], gas, oil, or water [employer] threatened to shut off services in your [...] [address] [facility] [address] Physical address: [address] [facility], [address] Social & Family Supports: All names listed [...] [facility] Payor: [facility] / Plan: [facility] PPO / Product Type: *No Product type* / Secondary Insurance: N/A ; Prescription Coverage: Yes Preferred Pharmacy: [id number] AT [facility] & [address] [address] Status: Patient is a : No Primary Care Provider confirmed: Aparna Jordan, FINISHED CLOTH CHECKER [phone] Patient/Caregiver Goals of Treatment: dc to home Potential Needs for Transition of Care: home health care Agency Referrals: I have met with the patient to: discuss discharge planning needs. provide the [facility], Office of Care Management letter from the [employer] Specialist pertaining to rehab referrals. provide a letter describing our affiliations within the [facility] and educate about their right to choose where referrals are sent. provide a list of Home Health Agencies / Durable Medical Equipment vendors which serve their preferred geographic area. provided patient with [facility] Star Quality Rating handout. They have requested referrals to: [facility] Care Agency [facility]. [address] [place] [address] Note routed to a Risk Specialist who will communicate referrals to facilities [...] Reina Greene RN CM, BSN, CMGT- Ext [phone] * Plan of Care - Binta Trinidad [...] Operative Note Patient Name: Karlos Garcia DOB: [id number] MR#: [id number] Case Date: 02/17/2024 Surgeon: Surgeon(s) and Role: * Hayder Graham MD - Primary * Neftali Menon PA - Physician Stitcher Operator Preoperative diagnosis: CAD Postoperative diagnosis: CAD, [...] MD - 02/17/2024 8:[address] [facility] Operative Note Patient Name: Karlos Garcia : [id number] MR#: [id number] Case Date: 02/17/2024 Surgeon: Surgeons and Role: * Hayder Graham MD - Primary * Neftali Menon PA - Physician Stitcher Operator Preoperative diagnosis: CAD Postoperative diagnosis: CAD, [...] mL Drains: Mediastinal and Left pleural Disposition: [facility] Procedure Description: The patient was brought to [...] Aortic Valve Open W Cardiopulmonary Bypass Homogrf/Stent (00685) Yes 02/17/2024 7:28 AM EDT CAD Cabg, Artery-Vein, Two (63590) Yes 02/17/2024 7:28 AM EDT CAD Cabg, Arterial, Single (33165) Yes 02/17/2024 7:28 AM EDT CAD Endoscopy W/Video-Asst Vein [place], Cabg (36044) Yes 02/17/2024 7:28 AM EDT CAD POCT [...] ORDERABLE S [facility] [place] [address] * (ABNORMAL) Basic Metabolic Panel (non-fasting) (02/23/2024 [...] CHEMISTRY ORDERABLES [facility] [place] [address] * Potassium (02/22/2024 4:30 AM EDT) [facility] Signature Potassium 3.5 3.5 - 5.0 mmol/L [facility] [...] ORDERABLE S [facility] [place] [address] * (ABNORMAL) Basic Metabolic Panel (non-fasting) (02/21/2024 [...] City/[facility]/ZIP Co de Phone Number [facility] [place] [address] * Lactate, whole blood, send to lab ([facility]) (02/21/2024 9:45 AM EDT) [facility] Lactate WB 2.0 0.5 - 2.2 mmol/L [facility] Blood 02/21/2024 9:45 AM EDT 02/21/2024 9:52 AM EDT Narrative Resulting Agency Comment Spec In Lab Hayder Graham MD CHEMISTRY ORDERABLE S Performing Organization Address [facility] Co de Phone Number [facility] [place] [address] * (ABNORMAL) Hepatic Function Panel (02/21/2024 9:45 AM EDT) [facility] Protein, Total 5.7(L) 6.1 - 8.0 g/dL [...] City/[facility]/ZIP Co de Phone Number [facility] [place] [address] * Lipase (02/21/2024 9:45 AM EDT) [facility] Lipase 56 0 - 60 unit/L [facility] Blood 02/21/2024 9:45 AM EDT 02/21/2024 9:52 AM EDT Narrative Resulting Agency Comment Spec In Lab Hayder Graham MD CHEMISTRY ORDERABLE S Performing Organization Address [facility] Co de Phone Number [facility] [place] [address] * Amylase (02/21/2024 9:45 AM EDT) Amylase 69 28 - 100 unit/L [facility] Blood 02/21/2024 9:45 AM EDT 02/21/2024 9:52 AM EDT Narrative Resulting Agency Comment Spec In Lab Hayder Graham MD CHEMISTRY ORDERABLE S Performing Organization Address [facility] de Phone Number [facility] [place] [address] * Potassium (02/21/2024 3:08 AM EDT) [facility] Potassium 3.8 3.5 - 5.0 mmol/L [facility] [...] Address [facility] Co de Phone Number [facility] [place] [address] * XR Chest PA & Lateral (Generic) (02/20/2024 10:19 AM EDT) WORKSTATION ID [id number] DH RAD Anatomical Region Laterality Modality Chest N/A Digital Radiogra phy Impressions 02/20/2024 1:11 PM EDT Small pleural effusions. No pneumothorax Thank you for letting us participate in the care of this patient. ??If you are a health care provider and have any questions regarding this report, please contact the number below. ??For patients who have questions please contact the health health care aide that requested your imaging first. ? Electronically signed by: Rogerio Cruz MD, [facility] ??([phone]), at 02/20/2024 1:11 PM Narrative 02/20/2024 1:11 PM EDT EXAMINATION: XR CHEST PA AND LATERAL (GENERIC) CLINICAL HISTORY: s/p AVR/CABGx3 TECHNIQUE: PA and lateral views of the chest COMPARISON: 02/17/2024 FINDINGS: Support devices: Interval removal of Crowell-Kaila catheter, endotracheal tube and mediastinal chest tubes The cardiac silhouette is stable status post median sternotomy, CABG and aortic valve replacement. There are small pleural effusions. No pneumothorax. Procedure Note Rogerio Cruz MD - 02/20/2024 EXAMINATION: XR CHEST PA AND LATERAL (GENERIC) CLINICAL HISTORY: s/p AVR/CABGx3 TECHNIQUE: PA and lateral views of the chest COMPARISON: 02/17/2024 FINDINGS: Support devices: Interval removal of Crowell-Kaila catheter, endotracheal tubeand mediastinal chest tubes The [...] have questions please contactthe health health care aide that requested your imaging first. Hayder Graham MD IMG DX ORDERABLES * Scan, Peripheral Blood (02/20/2024 4:23 AM EDT) Pathologist [facility] Plat estimate Decreased [facility] RBC Morphology Normal [facility] Blood 02/20/2024 4:23 AM EDT 02/20/2024 4:42 AM EDT Narrative Resulting Agency Comment Spec In Lab Minnie FRENCH HEMATOLOGY CECILIO ALEMAN [facility] [place] [address] * (ABNORMAL) Differential, Automated (02/20/2024 4:23 AM EDT) [facility] Neutrophil % 81.7 % [facility] Neutrophil Absolute 10.37(H) 1.70 - 6.10 x10(3)/mc L [facility] Lymph % 7.4 % [facility] Lymphocytes Abs 0.9 0.9 - 3.2 x10(3)/mc L [facility] Monocyte % 9.7 % [facility] Monocyte Abs 1.2(H) 0.3 - 0.9 x10(3)/mc L [facility] Eos % 0.1 % [facility] Eosinophils Abs 0.0 0.0 - 0.4 x10(3)/mc L [facility] Basophil % 0.2 % [facility] [...] CECILIO ALEMAN [facility] [place] [address] * (ABNORMAL) Hemogram (02/20/2024 4:23 AM EDT) [...] [facility] NRBC% auto 0.0 % [facility] NRBC Absolute 0.000 0.000 - 0.000 x10(3)/mc L [facility] Blood 02/20/2024 4:23 AM EDT 02/20/2024 4:42 AM EDT Narrative Resulting Agency Comment Spec In Lab Minnie FRENCH HEMATOLOGY CECILIO ALEMAN [facility] [place] [address] * (ABNORMAL) Basic Metabolic Panel (non-fasting) (02/20/2024 [...] Address [facility] Co de Phone Number [facility] [place] [address] * Potassium (02/19/2024 3:57 AM EDT) Potassium [...] Address [facility] Co de Phone Number [facility] [address] * POCT Glucose (02/18/2024 8:24 AM EDT) Glucose, POC 157 65 - 199 mg/dL [facility] Comment: Supplemental ranges: <140 mg/dL before meals <180 mg/dL all other times of the day Blood 02/18/2024 8:24 AM EDT 02/18/2024 8:24 AM EDT Hayder Graham MD POINT OF CARE TEST ORDERABLES [facility] [place] [address] * Scan, Peripheral Blood (02/18/2024 1:40 AM EDT) Pathologist [facility] Plat estimate Decreased [facility] RBC Morphology Normal [facility] Blood 02/18/2024 1:40 AM EDT 02/18/2024 1:56 AM EDT Narrative Resulting Agency Comment Spec In Lab Neftali FRENCH HEMATOLOGY ORDER OLE Performing Organization Address City/[facility]/ZIP Co de Phone Number [facility] [place] [address] * (ABNORMAL) Differential, Automated (02/18/2024 1:40 AM EDT) [facility] Neutrophil % 87.1 % [facility] Neutrophil Absolute 15.03(H) 1.70 - 6.10 x10(3)/mc L [facility] Lymph % 3.0 % [facility] Lymphocytes Abs 0.5(L) 0.9 - 3.2 x10(3)/mc L [facility] Monocyte % 9.1 % [facility] Monocyte Abs 1.6(H) 0.3 - 0.9 x10(3)/mc L [facility] Eos % 0.0 % [facility] Eosinophils Abs 0.0 0.0 - 0.4 x10(3)/mc L [facility] Basophil % 0.2 % [facility] [...] ORDER OLE [facility] [place] [address] * (ABNORMAL) Hemogram (02/18/2024 1:40 AM EDT) White Blood Cell 17.2(H) 4.0 - 9.5 x10(3)/ L [facility] Red Blood Cell 4.71 4.58 - 5.54 x10(6)/ L [facility] NRBC% auto 0.0 % [facility] [facility] NRBC Absolute 0.000 0.000 - 0.000 x10(3)/ L [facility] Blood 02/18/2024 1:40 AM EDT 02/18/2024 1:56 AM EDT Narrative Resulting Agency Comment Spec In Lab Neftali FRENCH HEMATOLOGY ORDER OLE [facility] [place] [address] * (ABNORMAL) Basic Metabolic Panel (non-fasting) (02/18/2024 [...] City/[facility]/ZIP Co de Phone Number [facility] [place] [address] * (ABNORMAL) Troponin (02/18/2024 1:40 AM EDT) [...] troponin value can be found in the [facility] Laboratory Test Catalog Troponin - [facility] Laboratory Test Catalog Reference: Fourth Alvarado Definition of Myocardial Infarction. Journal of the [employer] College [employer] 2018;72:5999-5805 Blood 02/18/2024 1:40 AM EDT 02/18/2024 1:56 AM EDT Narrative Resulting Agency Comment Spec In Lab Hayder Graham MD CHEMISTRY ORDERABLE S [facility] [place] [address] * POCT Glucose (02/17/2024 8:13 PM EDT) Glucose, POC 142 65 - 199 mg/dL [facility] Comment: Supplemental ranges: <140 mg/dL before meals <180 mg/dL all other times of the day Blood 02/17/2024 8:13 PM EDT 02/17/2024 8:13 PM EDT Hayder Graham MD POINT OF CARE TEST ORDERABLES Performing Organization Address [facility] [place]/[facility] Co de Phone Number [facility] [place] [address] * POCT Glucose (02/17/2024 5:42 PM EDT) Glucose, POC 160 65 - 199 mg/dL [facility] Comment: Supplemental ranges: <140 mg/dL before meals <180 mg/dL all other times of the day Blood 02/17/2024 5:42 PM EDT 02/17/2024 5:42 PM EDT Hayder Graham MD POINT OF CARE TEST ORDERABLES Performing Organization Address [facility] [place]/[facility]/ZIP Co de Phone Number [facility] [place] [address] * Hemoglobin (02/17/2024 5:42 PM EDT) Hemoglobin 13.7 13.7 - 16.5 g/dL [facility] Blood 02/17/2024 5:42 PM EDT 02/17/2024 6:10 PM EDT Narrative Resulting Agency Comment Spec In Lab Hayder Graham MD HEMATOLOGY ORDERABL ES [facility] [place] [address] * Potassium (02/17/2024 5:42 PM EDT) Potassium [...] MD CHEMISTRY ORDERABLE S Performing Organization Address City/State/[facility] Co de Phone Number [facility] [place] [address] * (ABNORMAL) BLOOD GAS 2 ARTERIAL (02/17/2024 [...] [facility] FIO2 Art 40 % [facility] PF Ratio Art 195 [facility] Blood 02/17/2024 4:18 PM EDT 02/17/2024 4:18 PM EDT Hayder Graham MD POINT OF CARE TEST ORDERABLES [facility] [place] [address] * XR Chest One View (02/17/2024 1:44 PM EDT) [employer] WORKSTATION ID [id number] DH RAD Anatomical Region Laterality Modality Chest N/A Digital Radiogra phy Impressions 02/17/2024 2:12 PM EDT 1. ??No definite pleural fluid collection or pneumothorax. 2. ??Right IJ Crowell-Kaila catheter tip terminates in a descending branch [...] questions please contact the health health care aide that requested your imaging first. ? Electronically signed by: Denzel Hankins MD, [facility] ??([phone]), at 02/17/2024 2:12 PM Narrative 02/17/2024 2:12 PM EDT EXAMINATION: XR CHEST ONE VIEW CLINICAL HISTORY: s/p avr/cabg eval effusions TECHNIQUE: 1 view of the chest COMPARISON: Chest x-ray 01/09/2024, chest CT 02/03/2024 FINDINGS: ET tube tip terminates 5.2 cm above the carlos. Right IJ Crowell-Kaila catheter tip terminates in a descending branch [...] 5.2 cm above the carlos. Right IJ Crowell-Ganzcatheter tip terminates in a descending branch of [...] fluid collection or pneumothorax. 2. Right IJ Crowell-Kaila catheter tip terminates in a descending branch ofthe right pulmonary artery. Suggest catheter retraction. 3. Additional support lines and tubes as above. Thank you for letting us participate in the care of this patient. If youare a health care provider and have any questions regarding this report,please contact the number below. For patients who have questions please contactthe health health care aide that requested your imaging first. Electronically signed by: Denzel Hankins MD, [facility]([phone]), at 02/17/2024 2:12 PM Hayder Graham MD [...] [facility] FIO2 Art 100 % [facility] PF Ratio Art 320 [facility] Blood 02/17/2024 1:31 PM EDT 02/17/2024 1:31 PM EDT Hayder Graham MD POINT OF CARE TEST ORDERABLES [facility] [place] [address] * (ABNORMAL) Coox2 (02/17/2024 1:21 PM EDT) [...] ORDERABLES [facility] [address] * (ABNORMAL) BLOOD GAS 2 ARTERIAL (02/17/2024 [...] TEST ORDERABLES Performing Organization Address [facility]/[facility]/ZIP Co de Phone Number [facility] [place] [address] * (ABNORMAL) Fibrinogen (02/17/2024 12:10 PM EDT) [...] MD HEMATOLOGY ORDERABLE S Performing Organization Address City/[facility]/ZIP Co de Phone Number [facility] [place] [address] * (ABNORMAL) Thrombin time (02/17/2024 12:10 PM [...] Address [facility]/[facility] Co de Phone Number [facility] [place] [address] * APTT (02/17/2024 12:10 PM EDT) Partial [...] Address [facility]/[facility] Co de Phone Number [facility] [place] [address] * (ABNORMAL) Prothrombin Time (02/17/2024 12:10 PM [...] S [facility] [address] * (ABNORMAL) Hemogram (02/17/2024 12:10 PM EDT) [...] [facility] NRBC% auto 0.0 % [facility] NRBC Absolute 0.000 0.000 - 0.000 x10(3)/mc L [facility] Blood 02/17/2024 12:1 0 PM EDT 02/17/2024 12:19 PM EDT Narrative Resulting Agency Comment Spec In Lab Tara York MD HEMATOLOGY ORDERABLE S [facility] [place] [address] * (ABNORMAL) BLOOD GAS 2 ARTERIAL (02/17/2024 [...] [facility] Comment: Noted by gyroscopic instrument mechanic. Please note: Patients with WBC [...] TEST ORDERABLES [facility] [place] [address] * (ABNORMAL) BLOOD GAS 2 ARTERIAL (02/17/2024 [...] [facility] Comment: Noted by gyroscopic instrument mechanic. Please note: Patients with WBC [...] TEST ORDERABLES Performing Organization Address [facility] [place]/[facility]/ZIP Co de Phone Number [facility] [place] [address] * (ABNORMAL) Hemoglobin and Hematocrit, blood (02/17/2024 [...] MD HEMATOLOGY ORDERABL ES Performing Organization Address City/[facility]/[place] [address] * (ABNORMAL) Platelet count (02/17/2024 11:04 AM EDT) Platelet 106(L) 145 - 357 x10(3)/mc L [facility] Immature Plt % 1.6 0.0 - 7.4 % [facility] Comment: Limitation of the Immature Platelet Fraction (IPF)-May be less reliable when the platelet count is less than 17h991/uL due to statistical imprecision. The IPF value [...] in a decreased state of production. References: [employer] The Clinical Value of the Immature Platelet Fraction (IPF) in Cell Recovery Document Number [id number] 03/2011 [employer] The Role of the Immature Platelet Fraction (IPF) in the Differential Diagnosis of Thrombocytopenia, Document MKT-[id number] V002/15/14 Blood 02/17/2024 11:0 4 AM EDT 02/17/2024 11:12 AM EDT Narrative Resulting Agency Comment Spec In Lab Hayder Graham MD HEMATOLOGY ORDERABL ES Performing Organization Address City/State/[facility] Co de Phone Number [facility] [place] [address] * (ABNORMAL) Fibrinogen (02/17/2024 11:04 AM EDT) [...] ORDERABL ES [facility] [place] [address] * (ABNORMAL) BLOOD GAS 2 ARTERIAL (02/17/2024 [...] TEST ORDERABLES [facility] [place] [address] * (ABNORMAL) BLOOD GAS 2 ARTERIAL (02/17/2024 [...] TEST ORDERABLES [facility] [place] [address] * Surgical Pathology Report (02/17/2024 10:01 AM EDT) Final Diagnosis [id number] ? Location: [facility]; [facility]; The signing pathologist has (i) examined the relevant preparation(s) for the specimen(s) and (ii) rendered or confirmed the diagnosis(es). . ?Surgical Pathology DIAGNOSIS Aortic valve leaflets, excision: Valve leaflets with myxoid degeneration, nodular fibrosis and dystrophic calcifications. Electronically signed by: ?Livier Montoya MD Verified: ??02/24/2024 13:49 ??Pathologist Performed at: ??-[facility] Dept. of Pathology, [place] [address] Soil Fertility Specialist: Job Brewer MD, FCAP, ??IA Certificate: [id number] SPECIMEN(S) SUBMITTED A - Aortic Valve Leaflets, [...] Sections Processing Blocks submitted for decalcification: A1. Floor Finisher sections in 1 cassette labeled A1. ??ajw 02/24/2024 1:49 PM EDT [facility] AORTIC STRUCTURE / Unknown 02/17/2024 10:01 AM EDT 02/17/2024 10:01 AM EDT Hayder Graham MD PATHOLOGY/CYTOLOGY ORDERABLES [facility] [place] [address] * Specimen to Pathology (02/17/2024 10:01 AM EDT) AP Specimen 02/17/2024 10:0 1 AM EDT 02/17/2024 10:01 AM EDT Narrative [facility] - 02/17/2024 10:01 AM EDT Specimen requisition ordered. ??Separate Pathology report to follow Hayder Graham MD PATHOLOGY/CYTOLOGY ORDERABLES Performing Organization Address City/[facility]/ZIP Co de Phone Number [facility] [place] [address] * (ABNORMAL) BLOOD GAS 2 ARTERIAL (02/17/2024 [...] TEST ORDERABLES [facility] [place] [address] * (ABNORMAL) BLOOD GAS 2 VENOUS (02/17/2024 9:34 AM EDT) pH, Venous 7.22(Criti marquez) 7.32 - 7.42 [facility] Comment:Noted by gyroscopic instrument mechanic. PCO2, Venous 43 41 - 51 mmHg [facility] Comment:Noted by gyroscopic instrument mechanic. PO2, Venous 57(H) 25 - 40 mmHg [facility] Comment:Noted by gyroscopic instrument mechanic. Bicarbonate, Venous 17.1 mmol/L [facility] Comment:Noted by gyroscopic instrument mechanic. Base Excess, Venous -10.6 mmol/L [facility] Comment:Noted by gyroscopic instrument mechanic. Hgb Blood Gas 11.2(L) 13.7 - 16.5 g/dL [facility] Comment:Noted by gyroscopic instrument mechanic. Oxyhemoglobin, Venous 86.5 % [facility] Comment:Noted by gyroscopic instrument mechanic. Carboxyhemoglob in, Venous 0.3 % [facility] Comment: Noted by gyroscopic instrument mechanic. Nonsmokers: 0.5-1.5% COHB Smokers: Variable, but usually less than 10% Toxic: 20-30% COHB Lethal: Greater than 60% COHB Methemoglobin, Venous 0.0 <=1.5 % [facility] Comment:Noted by gyroscopic instrument mechanic. Na Whole Blood 156(H) 135 - 145 mmol/L [facility] Comment:Noted by gyroscopic instrument mechanic. K Whole Blood 5.5(H) 3.5 - 5.0 mmol/L [facility] Comment: Noted by gyroscopic instrument mechanic. Please note: Patients with WBC >100,000 may have falsely elevated Potassium levels. Contact the Clinical Chemistry Laboratory if there are any questions. ICa Whole Blood 1.03(L) 1.15 - 1.33 mmol/L [facility] Comment: Noted by gyroscopic instrument mechanic. Note: ??Total bilirubin higher than 20 mg/dL may lead to falsely low ionized calcium. CL Whole Blood 100 98 - 107 mmol/L [facility] Comment:Noted by gyroscopic instrument mechanic. Gluc Whole Bld 132 65 - 199 mg/dL [facility] Comment: Noted by gyroscopic instrument mechanic. Diabetes: >=200 mg/dL plus symptoms Lactate WB 1.0 0.5 - 2.2 mmol/L [facility] Comment:Noted by gyroscopic instrument mechanic. Blood Gas Source Venous [facility] Blood 02/17/2024 9:34 AM EDT 02/17/2024 9:34 AM EDT Hayder Graham MD POINT OF CARE TEST ORDERABLES [facility] [place] [address] * (ABNORMAL) BLOOD GAS 2 ARTERIAL (02/17/2024 [...] TEST ORDERABLES Performing Organization Address [facility] Co de Phone Number [facility] [place] [address] * POCT Glucose (02/17/2024 6:38 AM EDT) Glucose, POC 98 65 - 199 mg/dL [facility] Comment: Supplemental ranges: <140 mg/dL before meals <180 mg/dL all other times of the day Blood 02/17/2024 6:38 AM EDT 02/17/2024 6:38 AM EDT Hayder Graham MD POINT OF CARE TEST ORDERABLES Performing Organization Address [facility] de Phone Number [facility] [place] [address] * Transesophageal Echo/OR (02/17/2024 6:33 AM EDT) [...] [facility] [...] 6 hours upon arrival to Unit. Give HI if unable to take PO, Routine Given [...] dose on Sat02/17/24 at 1400, Until Discontinued, [place] teeth and / or gums. Scan the CHG vial in the [employer] Q-Care Oral Care Kit from floor stock. Ventilator-associated pneumonia prophylaxis For use in ICU/Critical care locations ONLY. Obtain kit from Floor Stock location. Scan CHG vial in the [employer] Q-Care Oral Care Kit, Routine Given 02/17/2024 [...] restart at 50% of previous rate. Call roundhouse firer/fireman if goal not achieved at maximum rate. [...] PHENYLephrine and/or vasopressin ineffective. Call pager # [phone] if initiated. Titrate to keep systolic blood [...] 2.0 L/min/M2. Maximum volume 2 L. Call roundhouse firer/fireman for additional fluid orders: pager #[phone]. Rate/Dose Verify 02/18/2024 8:00 AM EDT 1 mL/hr 1 mL/hr Rate/Dose Verify 02/18/2024 6:00 AM EDT 1 mL/hr 1 mL/hr Rate/Dose Verify 02/18/2024 4:00 AM EDT 1 mL/hr 1 mL/hr sodium chloride 0.9% infusion 10-30 mL/hr, Intravenous, DAILY PRN, Starting on Sat02/17/24 at 1307, Until Sat02/18/24 at 0835, Side port TKO rate, per [facility] nursing protocol. Rate/Dose Verify 02/17/2024 8:00 PM [...] Routine documented in this encounter Care Teams Child Care Cook Relationship Specialty Start Date End Date Aparna Jordan APRN PCP - General Family Medicine 10/21/23 05/26/24 documented as of this encounter
--- OUTSIDE RECORDS SUMMARY | 2024-09-17 10:05 | XMS_ITS | Encounter Summary ---
[place] [address] Care Team Providers Care Swinging Cut Off Saw Operator Name Role Phone Vanessa Christian MAURI Primary Care Provider [phone] Reason for Visit * Auth/Cert (Routine) Specialty [...] RHC (WRVU 5.9) Rima Dickinson MD [facility] [place] [address] [facility] Referral ID Status Reason Start Date Expiration Date Visits Re quested Visits Authorized [id number] 1 1 Encounter Details Date Type Department Care Team (Late st Contact Info) Description 02/03/2024 10:00 AM EDT - 02/03/2024 11:00 AM EDT [place] [address] Saira Lua MD CARDIAC CATHETERIZATION Social History [...] Follow-up Visits Follow up with your supervisor tellers in 2-4 weeks Access Site 'Black and Blue' and tenderness is expected during the first week Call if you noted a mass (lump) greater than the size of a ellis Call Office with any Questions and if you have any of the following Clarence Lane M.D Interventional Mobility Manager Cigarette Book Maker #: [phone] * Attachments The following attachments cannot be sent through Care Everywhere. * CAD (Coronary Artery Disease): General Info (Tajik) * Coronary Angiogram: Post-op (Tajik) documented in this encounter Medications at Time [...] Pre-Procedure H&P Update: Cardiac Catheterization Karlos Anthony [id number] 1960 Chief Complaint: Aortic stenosis HPI: Mr. [...] is inthe chart Clarence Lane MD Interventional Mobility Manager 02/03/24 11:48 AM documented in this encounter Miscellaneous Notes * Brief Op Note - Clarence Lane MD - 02/03/2024 12:51 PM EDT Preliminary Cardiac Catheterization Procedure Note: Patient Name: Karlos Anthony : [id number] MR#: [id number] Case Date: 02/03/2024 Cigarette Book Maker: Surgeon(s) and Role: * Saira Lua [...] Modality Other Narrative 02/12/2024 3:47 PM EDT ?[facility] ? Cardiac Catheterization/Intervention Report ? Patient Name: Patenaude, Karlos ? Procedure Date: 02/03/2024 ? A #: [id number] ? Primary Physician: Mogadam, Emad ? Case #: [id number] ? File Name: [id number] ? Catheterization Order Number: [id number] ? [facility] ? Final Report [place], [place] ? Patient Name: ? Karlos Patenaude ? ID#: ?[id number] ? : ?1960 ? Procedure Date: ? [...] Procedure Note Saira Lua MD - 02/12/2024 [facility] Cardiac Catheterization/Intervention Report Patient Name: Karlos Anthony Procedure Date: 02/03/2024 A #: [id number] Primary Physician: Saira Lua Case #: [id number] File Name: [id number] Catheterization Order Number: [id number] [facility] FinalReport [place], [place] Patient Name: Karlos Anthony ID#:[id number] :1960 Procedure Date: February 03, 2024 Case [...] (Bezet) 372 ms MUSE SYSTEM Calculated P [place] 59 degrees MUSE SYSTEM Calculated R [place] 34 degrees MUSE SYSTEM Calculated T [place] 63 degrees MUSE SYSTEM INTERPRETATION Sinus bradycardia [...] MD) documented in this encounter Care Teams Swinging Cut Off Saw Operator Relationship Specialty Start Date End Date Vanessa Christian APRN PCP - General Family Medicine 10/21/23 05/26/24 documented as of this encounter
--- OUTSIDE RECORDS SUMMARY | 2024-09-17 10:05 | XMS_ITS | Encounter Summary ---
Author Organization [place] [address] Care Team Providers Care Outboard Motor Inspector Name Role Phone Vanessa Christian Lane DOTSON Primary Care Provider [phone] Reason for Referral * Diagnostic Test (Routine) - Closed Specialty Diagnoses / Procedures Referred By Contac t Referred To Contact Radiology Diagnoses Nonrheumatic aortic valve stenosis Procedures CT Chest wo Contrast (Generic) Louisa Cho PA [facility] DR CARDIOTHORACIC [place] [address] [facility] [place] [address] Referral ID Status Reason Start Date Expiration Date V isits Requested Visits Authorized [id number] Closed Specialty Service Requested 01/10/2024 07/11/2025 1 1 Reason for Visit * Diagnostic Test (Routine) - Closed Specialty Diagnoses / Procedures Referred By Contac t Referred To Contact Radiology Diagnoses Nonrheumatic aortic valve stenosis Procedures CT Chest wo Contrast (Generic) Louisa Cho PA [facility] CARDIOTHORACIC [place] [address] [facility] [place] [address] Referral ID Status Reason Start Date Expiration Date V isits Requested Visits Authorized [id number] Closed Specialty Service Requested 01/10/2024 07/11/2025 1 1 Encounter Details Date Type Department Care Team (Latest Contact Info) Description 02/03/2024 7:36 AM EDT - 02/03/2024 8:05 AM EDT Hospital Encounter [facility] Scan at [facility] [place] [address] Zak Farmer MD [facility] CARDIOTHORACIC [place] [address] Nonrheumatic aortic valve stenosis Discharge Disposition: Home Social History Tobacco Use Types Packs/Day Years Used Date Smoking Tobacco: Former Cigarettes Smokeless Tobacco: Never Comments:Quit 15 + years ago Alcohol Use Standard Drinks/Week Comments Yes 0 (1 standard drink = 0.6 oz pur e alcohol) rare [facility] Inpatient Questions Answer Date Recorded Does [...] wo Contrast (Generic) (02/03/2024 7:44 AM EDT) FanFound Signature WORKSTATION ID [id number] RAD Anatomical Region Laterality Modality Chest Computed [...] questions please contact the health customer care professional that requested your imaging first. ? Electronically signed by: Rogerio Wright MD, [facility] ([phone]), at 02/03/2024 10:00 AM Narrative 02/03/2024 10:00 [...] nodule along the minor fissure (series 302 [id number]) and a 8 mm right lower lobe [...] have questions please contactthe health customer care professional that requested your imaging first. Electronically signed by: Rogerio Wright MD, [facility]([phone]), at 02/03/2024 10:00 AM Zak Farmer MD IMG CT ORDERABLES documented in this encounter Visit Diagnoses Diagnosis Nonrheumatic aortic valve stenosis Aortic valve disorders documented in this encounter Care Teams Outboard Motor Inspector Relationship Specialty Start Date End Date Vanessa Christian APRN PCP - General Family Medicine 10/21/23 05/26/24 documented as of this encounter
--- OUTSIDE RECORDS SUMMARY | 2024-09-17 10:05 | XMS_ITS | Encounter Summary ---
Author Organization [facility] [address] Care Team Providers Care Tractor Mechanic Apprentice Name Role Phone Vanessa Christian APRN Primary Care Provider [phone] Encounter Details Date Type Department Care Team [...] on filedocumented in this encounter Care Teams Tractor Mechanic Apprentice Relationship Specialty Start Date End Date Vanessa Christian APRN PCP - General Family Medicine 10/21/23 05/26/24 documented as of this encounter
--- OUTSIDE RECORDS SUMMARY | 2024-09-17 10:05 | XMS_ITS | Encounter Summary ---
Author Organization Formerly [facility] [place] [address] Care Team Providers Care Air Cargo Specialist Supervisor Name Role Phone Vanessa Christian MAURI Primary Care Provider [phone] Reason for Visit * Auth/Cert (Routine) Specialty [...] GRAFT (WRVU 7.93) Zak Farmer MD [facility] [place] [address] [facility] Referral ID Status Reason Start Date Expiration Date Visits Re quested Visits Authorized [id number] 1 1 Encounter Details Date Type Department Care Team (Late st Contact Info) Description 02/17/2024 7:35 AM EDT Anesthesia Event Main Operating Room [facility] [place] [phone] Roman York MD [facility] [place] [address] Anesthesia Record Procedure Summary Procedure Name Responsible [...] by Sadiq Woo RN PIV 02/17/24; 0715; [id number]-[id number]-uppwtu catheter system; 18 gauge; cephalic vein (lateral [...] th e electric, gas, oil, or water [employer] threatened to shut off services in [...] Procedure Summary Date: 02/17/24 Room / Location: [facility] OR [address] [place] [address] MAIN OR Anesthesia Start: 734 Anesthesia Stop: [...] Patient Location: [facility] Level of Consciousness: Sedated (Pharmacologic/Intentional) Pain Management: [...] 08/14/2023 ??? Nevus of face 09/26/2023 Right congregational No past surgical history on file. Social [...] mg documented in this encounter Care Teams Air Cargo Specialist Supervisor Relationship Specialty Start Date End Date Vanessa Christian APRN PCP - General Family Medicine 10/21/23 05/26/24 documented as of this encounter
--- OUTSIDE RECORDS SUMMARY | 2024-09-17 10:05 | XMS_ITS | Encounter Summary ---
Author Organization [facility] [place] [address] Care Team Providers Care Landfill Grader Name Role Phone Aparna Jordan MAURI Primary Care Provider [phone] Reason for Visit * Auth/Cert (Routine) Specialty [...] ARTERIAL GRAFT (WRVU 7.93) Hayder Graham MD [facility] CARDIOTHORAC[place] [address] [facility] Referral ID Status Reason Start Date Expiration Date Visits Re quested Visits Authorized [id number] 1 1 Encounter Details Date Type Department Care Team (Late st Contact Info) Description 02/17/2024 7:30 AM EDT - 02/17/2024 1:26 PM EDT Surgery [place] [id number] Hayder Graham MD [facility] CARDIOTHORAC[place] [address] ENDOSCOPIC HARVEST VEIN(S) FOR CABG (WRVU 0.31) [...] Patient Age: 63 y.o. Birthdate: 1960 Language: Georgian Race: White Ethnicity: Not nor Admit Date: 02/17/2024 Discharge Date: 02/24/24 Attending Physician: Hayder Graham MD Follow-up Recommendations for Providers: Please continue routine management of cardiovascular risk factors including blood pressure, lipids,glucose, etc. Please note any changes to medications. Patient to follow up with PCP, Aparna Jordan APRN, in 1-2 weeks. Patient to follow up with Acid Tank Liner, Neftali Ernandez MD , in 2 weeks. Patient to follow up with Cardiac Surgeon, Dr. Hayder Graham, with a chest x-ray, EKG, and Echo. 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 Right gnosticist Past Surgical History: Procedure Laterality Date PRO CABG, ARTERIAL, SINGLE N/A 02/17/2024 @CABG, USING ARTERIAL GRAFT;SINGLE ARTERIAL GRAFT (WRVU 33.75) performed by Hayder Graham MD at [facility] MAIN OR PRO CABG, ARTERY-VEIN, TWO N/A 02/17/2024 @CABG, TWO VENOUS GRAFTS & ARTERIAL GRAFT (WRVU 7.93) performed by Hayder Graham MD at [facility] MAIN OR PRO ENDOSCOPY W/VIDEO-ASST VEIN HARVEST, CABG Left 02/17/2024 ENDOSCOPIC HARVEST VEIN(S) FOR CABG (WRVU 0.31) performed by Hayder Graham MD at [facility] MAIN OR PRO REPLACEMENT PROSTHETIC AORTIC VALVE OPEN W CARDIOPULMONARY BYPASS HOMOGRF/STENT N/A 02/17/2024 @REPLACE AORTIC VALVE, OPEN, W\CPB, W\PROSTHETIC VALVE (WRVU 41.32) performed by Hayder Graham MD at [facility] MAIN OR Prior To Admission Medications [...] insufficiency. He has glaucoma. He used to [employer] until about 15 years ago. He has undergone prior herniorrhaphy. 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 Major Procedures/Operations: 02/17/24 s/p avr/cabgx3 CABG x 3 JOSE->LAD SVG->dRCA SVG->OM1 EVH from LLE AVR with a 23 mm Inspiris Bioprosthesis Hospital Course: Karlos Garcia was admitted to [facility] on 02/17/2024 via the Same Day [...] Hayder Graham and/or the Cardiac Surgery Physician Edi Architect Team may be reached at . Antibiotic [...] Please refer to the card with the [place] [employer] Heart [employer] Guidelines for more information. [...] Dr. Hayder Graham. You may use a [place] Track or treadmill but avoid any pulling [...] should resume a low fat, low cholesterol, [place] Citizen Heart [employer] Diet. Driving: No driving [...] while being managed by your PCP and/or Acid Tank Liner. For future medication refills, please refer to your PCP and/or Acid Tank Liner after your discharge from our service. Thank you REMOVE CHEST TUBE SUTURES ON OR AFTER 03/02/24 Home oxygen therapy: N/A Follow up appointments: You should follow up with your PCP, Aparna Jordan APRN, in 1-2 weeks. Our office will schedule an appointment with your Acid Tank Liner, Neftali Ernandez MD , in 2 weeks. You have an appointment with your Cardiac Surgeon, Dr. Hayder Graham, 4 weeks with a chest x-ray, EKG, and Echo before your appointment. Cardiac Rehabilitation: Karlos Garcia was seen regarding participation in the outpatient Phase 2Cardiac Rehabilitation at [facility]. The patient agrees to a referral to this program. The referral will be sent at discharge and the patient should be contacted by the Program within 1- 2 weeks from discharge. Future Appointments and Orders Future Orders Complete By Expires Echocardiogram Transthoracic [13895 CPT(R)] 03/26/2024 09/25/2024 Process Instructions: Scheduling Instructions: Questions: Where will study be performed?: [facility] [place] [place] Clinics Does the patient have Congenital Heart Disease?: Does patient require sedation?: Sedation rationale: XR Chest PA & Lateral (Generic) [36099 56085 Custom] 03/26/2024 09/25/2024 Process Instructions: Scheduling Instructions: Questions: Portable exam?: Reason for exam and clinical history: s/p avr/cabg Clinical information / jerome questions for radiologist: Stat read required?: Date of injury if applicable: Requested Time: Where will study be performed?: [facility] Radiology Referral to Cardiac Rehab [FOC973 Custom] As directed Process Instructions: If no progress note charted, please enter Clinical details in comments. Scheduling Instructions: Questions: My question or request is: s/p AVR/CABG. Cardiac rehab at [facility]. Referral to Home Health [REF34 Custom] As directed Process Instructions: If no progress note charted, please enter Clinical details in comments. Scheduling Instructions: Comments: Please evaluate Karlos Garcia for admission to Home Health. [address] Phone Number: Date of : 1960 Inpatient DOCUMENTATION FOR VNA SERVICES (INCLUDING THOSE PATIENTS WITH MEDICARE COVERAGE REQUIRING HOME VNA SERVICES AND/OR HOSPICE SERVICES) PATIENT'S LOCATION: Karlos Garcia [address] [employer] [phone] Cloth Baler's Name: self/family In discussion with the attending physician, it is certified that this patient is under their care and that they, or a Nurse Practitioner, or Physician Edi Architect who is working directly with them, hada [...] for services as follows: HOME HEALTH AGENCY: [facility] [address] [place] [id number] RN orders: Cardiopulmonary assessment, incisional assessment, assess [...] issues please call the Cardiology Office at [phone] FOR MEDICARE ONLY: (please delete this section [...] care: As above. Signed: NEFTALI MENON PA-C [facility] Section of Cardiac Surgery [facility] [phone] FAX [phone] Date: 02/24/2024 CC: Aparna Jordan, MAURI Jordan, Aparna Sherman APRN [address] [place] [address] documented in this encounter Discharge Instructions * [...] Hayder Graham and/or the Cardiac Surgery Physician Edi Architect Team may be reached at . Antibiotic [...] Please refer to the card with the [place] Heart [employer] Guidelines for more information. [...] Dr. Hayder Graham. You may use a [place] Track or treadmill but avoid any pulling [...] should resume a low fat, low cholesterol, [place] Heart Association Diet. Driving: No driving [...] while being managed by your PCP and/or Acid Tank Liner. For future medication refills, please refer to your PCP and/or Acid Tank Liner after your discharge from our service. Thank you REMOVE CHEST TUBE SUTURES ON OR AFTER 03/02/24 Home oxygen therapy: N/A Follow up appointments: You should follow up with your PCP, Aparna Jordan APRN, in 1-2 weeks. Our office will schedule an appointment with your Acid Tank Liner, Neftali Ernandez MD , in 2 weeks. You have an appointment with your Cardiac Surgeon, Dr. Hayder Graham, 4 weeks with a chest x-ray, EKG, and Echo before your appointment. Cardiac Rehabilitation: Karlos Garcia was seen regarding participation in the outpatient Phase 2Cardiac Rehabilitation at [facility]. The patient agrees to [...] 0600 and on the weekends please page [phone]. * Eric Barahona PA - 02/23/2024 9:27 [...] 0600 and on the weekends please page [phone]. * Tiffanie Owens, LUMP INSPECTOR - 02/22/2024 2:48 PM EDT Physical Therapy [...] d/c for 10 days. 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 He drives. He works Precautions/Special Considerations: [...] LRAD and supervision Time IN / OUT: 7623-9079 Total Time: 30 minutes; TEFx2 Tiffanie Owens Pager: [phone] Physical Therapy Inpatient Rehabilitation Department * Romeo [...] 0600 and on the weekends please page [phone]. * Kelley Hinson LUMP INSPECTOR - 02/21/2024 10:15 AM EDT Physical [...] d/c for 10 days. 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 He drives. He works Precautions/Special Considerations: [...] LRAD and supervision Time IN / OUT: 0527-0160 Total Time: 25 minutes; TEF 2 Kelley Hinson PTA Pager: [phone] Physical Therapy Inpatient Rehabilitation Department * Louisa [...] 0600 and on the weekends please page [phone]. * Kelley Hinson PTA - 02/20/2024 3:32 [...] at that time Kelley Hinson PTA Pager: [phone] Physical Therapy Inpatient Rehab Department * Louisa [...] 0600 and on the weekends please page [phone]. * Maris Benavides, PT - 02/19/2024 11:22 [...] d/c for 10 days. 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 He drives. He works. Precautions/Special Considerations: [...] outlined inthis evaluation. MARIS BENAVIDES, PT Pager: [phone] Physical Therapy Inpatient Rehabilitation Department Time IN / OUT: 1949-4446 Total Time: 38 (eval) minutes; * Antonio [...] 0600 and on the weekends please page [phone]. * Minnie Begum PA - 02/18/2024 8:25 [...] 0600 and on the weekends please page [phone]. * Kim Ha RCP - 02/17/2024 2:25 [...] plan since last visit. Hayder Graham MD [phone] Source Note - Hayder Graham MD - [...] given written informed consent. Hayder Graham MD [phone] * Hayder Graham MD - 02/17/2024 7:00 [...] given written informed consent. Hayder Graham MD [phone] documented in this encounter Miscellaneous Notes * [...] information for follow-up Home Health & Hospice, [address] [place] [address] Cardiac Rehab, [address] [place] [address] Transportation: family or friend will provide Functional status prior to admission: Independent Home Environment: Others in the home: alone. Current Living Arrangements: home/apartment/condo. Accessibility Concerns:a few steps to enter 1 floor home. Current Functional Ability: Assistive Person and Equipment DME used at home: none DME Needed at Discharge: N/A Patient is insured through: Primary Insurance: [place] [employer] Payor: [facility] / Plan: [facility] PPO / Product Type: *No [...] pain managed with scheduled Tylenol. Worked with [employer]. Ambulated in the roque multiple times during [...] is insured through: Primary Insurance: [facility] Payor: [facility] / Plan: [facility] PPO / Product Type: *No Product type* / Secondary Insurance: N/A Last Physical Therapy Recommendation: home with home health (Str coming to stay for a week or two upon d/c) with to be determined (owns rolling walker, shower seat) Plan for discharge is: Home w/ Services Outpatient Agency/Support Group Needs: Homecare agency Home Health Services: Physical Therapy, Registered Nurse Agency Referrals: [facility] [address] [place] [address] Transportation: family or friend will provide Barriers to discharge: Discharge planning Plan going forward: Service Care Management will continue to follow and assist with discharge planning and coordination of care as indicated. Anticipated Date of Discharge: 02/22/2024 Rhett Bell RN RN/CM - Cellphone: [phone] Pager: [phone] Covering Service RN/CM * Plan of Care [...] Yang RN - 02/19/2024 10:44 AM EDT [facility] [place] [place] CARDIAC REHABILITATION Karlos Garcia was seen today regarding participation in the outpatient Phase 2 Cardiac Rehabilitation at [facility]. 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 (Only good for 180 days) Any patient receiving care in [place] must abide by [place] law. The hierarchy for surrogate decision making [...] (i) The agent with financial power of trial attorney or a conservator appointed in accordance [...] place to sleep or slept in [facility] (including now)?: No In the past 12 months has the [employer], gas, oil, or water [employer] threatened to shut off services in your [...] as: [address] [facility] [address] Physical address: [address] [facility], [address] Social & Family Supports: All names listed [...] noted Health/Prescription Coverage: Primary Insurance: [facility] Payor: [facility] / Plan: [facility] PPO / Product Type: *No Product type* / Secondary Insurance: N/A ; Prescription Coverage: Yes Preferred Pharmacy: [id number] [address] [place] Status: Patient is a : No Primary Care Provider confirmed: Aparna Jordan, MAURI [phone] Patient/Caregiver Goals of Treatment: dc to home Potential Needs for Transition of Care: home health care Agency Referrals: I have met with the patient to: discuss discharge planning needs. provide the [facility] [place] [place], Office of Care Management letter from the Manager Cancer pertaining to rehab referrals. provide a letter describing our affiliations within the [facility] and educate about their right to choose where referrals are sent. provide a list of Home Health Agencies / Durable Medical Equipment vendors which serve their preferred geographic area. provided patient with [facility] Star Quality Rating handout. They have requested referrals to: [facility] [address] [place] [address] Note routed to a Plant And Equipment Worker who will communicate referrals to facilities [...] Reina Greene RN CM, BSN, CMGT-BC Ext [phone] * Plan of Care - Binta Trinidad [...] Operative Note Patient Name: Karlos Garcia : [id number] MR#: [id number] Case Date: 02/17/2024 Surgeon: Surgeon(s) and Role: * Hayder Graham MD - Primary * Neftali Menon PA - Physician Edi Architect Preoperative diagnosis: CAD Postoperative diagnosis: CAD, intraoperative [...] Drains: Mediastinal and Left pleural Disposition: [facility] Condition: doing well without problems Attestation: Case Date: 02/17/2024 I performed this procedure without the involvement of a resident. HAYDER GRAHAM MD 02/17/2024 * Op Note - Hayder Graham MD - 02/17/2024 8:20 AM EDT [facility] [place] [place] Operative Note Patient Name: Karlos Garcia : [id number] MR#: [id number] Case Date: 02/17/2024 Surgeon: Surgeons and Role: * Hayder Graham MD - Primary * Neftali Menon PA - Physician Edi Architect Preoperative diagnosis: CAD Postoperative diagnosis: CAD, intraoperative [...] Drains: Mediastinal and Left pleural Disposition: [facility] Procedure Description: The patient was brought [...] Aortic Valve Open W Cardiopulmonary Bypass Homogrf/Stent (68571) Yes 02/17/2024 7:28 AM EDT CAD Cabg, Artery-Vein, Two (43573) Yes 02/17/2024 7:28 AM EDT CAD Cabg, Arterial, Single (66007) Yes 02/17/2024 7:28 AM EDT CAD Endoscopy W/Video-Asst Vein [place], Cabg (61898) Yes 02/17/2024 7:28 AM EDT CAD POCT GLUCOSE Routine 02/17/2024 6:38 AM EDT TRANSESOPHAGEAL ECHOCARDIOGRAM IN THE OR Routine 02/17/2024 6:33 AM EDT Aortic valve stenosis, etiology of cardiac valve disease unspecified LAB SCAN 02/17/2024 12:00 AM EDT IMPLANTABLE DEVICES SCAN 02/17/2024 12:00 AM EDT documented in this encounter Results * Potassium (02/24/2024 4:42 AM EDT) Potassium 4.0 3.5 - 5.0 mmol/L [facility] Lab Hayder Graham MD CHEMISTRY ORDERABLE S [facility] [place] [address] * (ABNORMAL) Basic Metabolic Panel (non-fasting) (02/23/2024 4:24 AM EDT) Glucose 117 65 - 199 mg/dL [facility] Comment:Diabetes: >=200 mg/d L plus symptoms Blood Urea Nitrogen 18 10 - 20 mg/dL [facility] Creatinine 0.71(L) 0.80 - 1.50 mg/dL [facility] Sodium 138 135 - 145 mmol/L [facility] Potassium 4.4 3.5 - 5.0 mmol/L [facility] Comment: Please note: ??Patients with WBC >100,000 may have falsely elevated Potassium levels. ??For accurate Potassium quantification in these patients send serum separator tube (gold top) for subsequent determinations. ??Contact the Clinical Chemistry Laboratory if there are any questions. Chloride 101 98 - 107 mmol/L [facility] Carbon Dioxide 26 22 - 31 mmol/L [facility] Anion Gap 11 5 - 15 mmol/L [facility] Calcium 8.8 8.5 - 10.5 mg/dL [facility] Est Glomerular Filtration Rate 102 >=60 mL/min/1. 73 m?? [place] [...] Carpio MD CHEMISTRY ORDERABLES Performing Organization Address [facility] Co de Phone Number [facility] [place] [address] * Potassium (02/22/2024 4:30 AM EDT) Potassium 3.5 3.5 - 5.0 mmol/L [place] S Performing Organization Address [facility] Co de Phone Number [facility] [place] [address] * (ABNORMAL) Basic Metabolic Panel (non-fasting) (02/21/2024 9:45 AM EDT) Glucose 123 65 - 199 mg/dL [facility] Comment:Diabetes: >=200 mg/d L plus symptoms Blood Urea Nitrogen 22(H) 10 - 20 mg/dL [facility] Creatinine 0.78(L) 0.80 - 1.50 mg/dL [facility] Sodium 140 135 - 145 mmol/L [facility] Potassium 3.9 3.5 - 5.0 mmol/L [facility] Comment: Please note: ??Patients with WBC >100,000 may have falsely elevated Potassium levels. ??For accurate Potassium quantification in these patients send serum separator tube (gold top) for subsequent determinations. ??Contact the Clinical Chemistry Laboratory if there are any questions. Chloride 100 98 - 107 mmol/L [facility] Carbon Dioxide Not Perf 22 - 31 [facility] Comment:Add-on request. Samp le too old to perform test. Anion Gap Unable to Calculate 5 - 15 mmol/L [facility] Calcium 8.6 8.5 - 10.5 mg/dL [facility] Est Glomerular Filtration Rate 100 >=60 mL/min/1 .73 m?? [facility] [...] In Lab Romeo Carpio MD CHEMISTRY ORDERABLES [facility] [place] [address] * Lactate, whole blood, send to lab ([facility] [place] (02/21/2024 9:45 AM EDT) Lactate WB 2.0 0.5 - 2.2 mmol/L [facility] Blood 02/21/2024 9:45 AM EDT 02/21/2024 9:52 AM EDT Narrative Resulting Agency Comment Spec In Lab Hayder Graham MD CHEMISTRY ORDERABLE S Performing Organization Address City/[facility]/ZIP Co de Phone Number [facility] [place] [address] * (ABNORMAL) Hepatic Function Panel (02/21/2024 9:45 AM EDT) Pathologist [facility] Protein, Total 5.7(L) 6.1 - 8.0 g/dL [facility] Albumin 3.3 3.2 - 5.2 g/dL [facility] Aspartate Aminotransferase 13 0 - 39 unit/L [facility] Alanine Aminotransferase 16 0 - 55 unit/L [facility] Alkaline Phosphatase 63 40 - 130 unit/L [facility] Bilirubin, Total 0.6 0.2 - 1.3 mg/dL [facility] Bilirubin, Direct 0.2 0.0 - 0.3 mg/dL [facility] Blood 02/21/2024 9:45 AM EDT 02/21/2024 9:52 AM EDT Narrative Resulting Agency Comment Spec In Lab Hayder Graham MD CHEMISTRY ORDERABLE S Performing Organization Address City/[facility]/ZIP Co de Phone Number [facility] [place] [address] * Lipase (02/21/2024 9:45 AM EDT) Pathologist [facility] Lipase 56 0 - 60 unit/L [facility] Blood 02/21/2024 9:45 AM EDT 02/21/2024 9:52 AM EDT Narrative Resulting Agency Comment Spec In Lab Hayder Graham MD CHEMISTRY ORDERABLE S Performing Organization Address [facility] Co de Phone Number [facility] [place] [address] * Amylase (02/21/2024 9:45 AM EDT) Amylase 69 28 - 100 unit/L [facility] Blood 02/21/2024 9:45 AM EDT 02/21/2024 9:52 AM EDT Narrative Resulting Agency Comment Spec In Lab Hayder Graham MD CHEMISTRY ORDERABLE S Performing Organization Address [facility] de Phone Number [facility] [place] [address] * Potassium (02/21/2024 3:08 AM EDT) Pathologist [facility] Potassium 3.8 3.5 - 5.0 mmol/L [place] [...] S Performing Organization Address [facility] Co de Phone Number [facility] [place] [address] * XR Chest PA & Lateral (Generic) (02/20/2024 10:19 AM EDT) WORKSTATION ID [id number] RAD Anatomical Region Laterality Modality Chest N/A [...] by: Rogerio Cruz MD, [facility] ??([phone]), at 02/20/2024 1:11 PM Narrative 02/20/2024 1:11 PM EDT EXAMINATION: XR CHEST PA AND LATERAL (GENERIC) CLINICAL HISTORY: s/p AVR/CABGx3 TECHNIQUE: PA and lateral views of the chest COMPARISON: 02/17/2024 FINDINGS: Support devices: Interval removal of Monroe-Kaila catheter, endotracheal tube and mediastinal chest tubes The cardiac silhouette is stable status post median sternotomy, CABG and aortic valve replacement. There are small pleural effusions. No pneumothorax. Procedure Note Rogerio Cruz MD - 02/20/2024 EXAMINATION: XR CHEST PA AND LATERAL (GENERIC) CLINICAL HISTORY: s/p AVR/CABGx3 TECHNIQUE: PA and lateral views of the chest COMPARISON: 02/17/2024 FINDINGS: Support devices: Interval removal of [place]-Kaila catheter, endotracheal tubeand mediastinal chest tubes The [...] healthcare manager that requested your imaging first. Hayder Graham MD IMG DX ORDERABLES * Scan, Peripheral Blood (02/20/2024 4:23 AM EDT) Plat estimate Decreased [facility] RBC Morphology Normal [facility] Blood 02/20/2024 4:23 AM EDT 02/20/2024 4:42 AM EDT Narrative Resulting Agency Comment Spec In Lab Minnie FRENCH HEMATOLOGY CECILIO ALEMAN [facility] [place] [address] * (ABNORMAL) Differential, Automated (02/20/2024 4:23 AM EDT) Pathologist [facility] Neutrophil % 81.7 % [facility] Neutrophil Absolute 10.37(H) 1.70 - 6.10 x10(3)/mc L [facility] Lymph % 7.4 % [facility] Lymphocytes Abs 0.9 0.9 - 3.2 x10(3)/mc L [facility] Monocyte % 9.7 % [facility] Monocyte Abs 1.2(H) 0.3 - 0.9 x10(3)/mc L [facility] Eos % 0.1 % [facility] Eosinophils Abs 0.0 0.0 - 0.4 x10(3)/mc L [facility] Basophil % 0.2 % [facility] Baso Absolute 0.0 0.0 - 0.1 x10(3)/mc L [facility] Immature Gran % 0.90 % [facility] Comment: Immature granulocytes(IG's)percentage and absolute count will include metamyelocytes, myelocytes, and promyelocytes. Blood smears from CBCs yielding IG's will be scanned manually for concordance. If this scan disagrees with the automated IG or if promyelocytes are noted, a manual differential will be performed. Immature Gran Absolute 0.12(H) 0.00 - 0.04 x10(3)/ L [facility] Blood 02/20/2024 4:23 AM EDT 02/20/2024 4:42 AM EDT Narrative Resulting Agency Comment Spec In Lab Minnie FRENCH HEMATOLOGY CECILIO ALEMAN [facility] [place] [address] * (ABNORMAL) Hemogram (02/20/2024 4:23 AM EDT) White Blood Cell 12.7(H) 4.0 - 9.5 x10(3)/[facility] Red Blood Cell 4.26(L) 4.58 - 5.54 x10(6)/[facility] Hemoglobin 12.3(L) 13.7 - 16.5 g/dL [facility] Hematocrit 37.1(L) 40.5 - 48.5 % [facility] Mean Cell Volume 87.1 82.9 - 93.1 [facility] Mean Cell Hemoglobin 28.9 27.5 - 32.1 pg [facility] Mean Cell Hemoglobin Concentration 33.2 32.0 - 35.7 g/dL [facility] Platelet 88(L) 145 - 357 x10(3)/[facility] RDW Standard Deviation 43.5 36.0 - 45.0 [facility] RDW coefficient of variation 13.7 11.4 - 13.8 % [facility] Mean Platelet Volume 10.2 7.6 - 12.9 [facility] NRBC% auto 0.0 % [facility] NRBC Absolute 0.000 0.000 - 0.000 x10(3)/ L [facility] Blood 02/20/2024 4:23 AM EDT 02/20/2024 4:42 AM EDT Narrative Resulting Agency Comment Spec In Lab Minnie FRENCH HEMATOLOGY CECILIO ALEMAN [facility] [place] [address] * (ABNORMAL) Basic Metabolic Panel (non-fasting) (02/20/2024 4:23 AM EDT) Glucose 113 65 - 199 mg/dL [facility] Comment:Diabetes: >=200 mg/d L plus symptoms Blood Urea Nitrogen 20 10 - 20 mg/dL [facility] Comment:result rechecked-[place] Creatinine 0.71(L) 0.80 - 1.50 mg/dL [facility] Sodium 135 135 - 145 mmol/L [facility] Potassium 3.9 3.5 - 5.0 mmol/L [facility] Comment: Please note: ??Patients with WBC >100,000 may have falsely elevated Potassium levels. ??For accurate Potassium quantification in these patients send serum separator tube (gold top) for subsequent determinations. ??Contact the Clinical Chemistry Laboratory if there are any questions. Chloride 102 98 - 107 mmol/L [facility] Carbon Dioxide 25 22 - 31 mmol/L [facility] Anion Gap 8 5 - 15 mmol/L [facility] Calcium 8.7 8.5 - 10.5 mg/dL [facility] Comment:result rechecked-[place] Est Glomerular Filtration Rate 102 >=60 mL/min/1. 73 m?? [place] [place] [facility]ZIP Co de Phone Number [facility] [place] [address] * Potassium (02/19/2024 3:57 AM EDT) Potassium 4.3 3.5 - 5.0 mmol/L [place] S Performing Organization Address [facility] Co de Phone Number [facility] [place] [address] * POCT Glucose (02/18/2024 8:24 AM EDT) Glucose, POC 157 65 - 199 mg/dL [facility] Comment: Supplemental ranges: <140 mg/dL before meals <180 mg/dL all other times of the day Blood 02/18/2024 8:24 AM EDT 02/18/2024 8:24 AM EDT Hayder Graham MD POINT OF CARE TEST ORDERABLES Performing Organization Address [facility]/ZIP Co de Phone Number [facility] [place] [address] * Scan, Peripheral Blood (02/18/2024 1:40 AM EDT) Plat estimate Decreased [facility] RBC Morphology Normal [facility] Blood 02/18/2024 1:40 AM EDT 02/18/2024 1:56 AM EDT Narrative Resulting Agency Comment Spec In Lab Neftali FRENCH HEMATOLOGY ORDER OLE [facility] [place] [address] * (ABNORMAL) Differential, Automated (02/18/2024 1:40 AM EDT) Neutrophil % 87.1 % [facility] Neutrophil Absolute 15.03(H) 1.70 - 6.10 x10(3)/mc L [facility] Lymph % 3.0 % [facility] Lymphocytes Abs 0.5(L) 0.9 - 3.2 x10(3)/mc L [facility] Monocyte % 9.1 % [facility] Monocyte Abs 1.6(H) 0.3 - 0.9 x10(3)/mc L [facility] Eos % 0.0 % [facility] Eosinophils Abs 0.0 0.0 - 0.4 x10(3)/mc L [facility] Basophil % 0.2 % [facility] Baso Absolute 0.0 0.0 - 0.1 x10(3)/mc L [facility] Immature Gran % 0.60 % [facility] Comment: Immature granulocytes(IG's)percentage and absolute count will include metamyelocytes, myelocytes, and promyelocytes. Blood smears from CBCs yielding IG's will be scanned manually for concordance. If this scan disagrees with the automated IG or if promyelocytes are noted, a manual differential will be performed. Immature Gran Absolute 0.10(H) 0.00 - 0.04 x10(3)/mc L [facility] Blood 02/18/2024 1:40 AM EDT 02/18/2024 1:56 AM EDT Narrative Resulting Agency Comment Spec In Lab Neftali FRENCH HEMATOLOGY ORDER OLE [facility] [place] [address] * (ABNORMAL) Hemogram (02/18/2024 1:40 AM EDT) White Blood Cell 17.2(H) 4.0 - 9.5 x10(3)/mc L [facility] Red Blood Cell 4.71 4.58 - 5.54 x10(6)/mc L [facility] Hemoglobin 13.7 13.7 - 16.5 g/dL [facility] Hematocrit 39.2(L) 40.5 - 48.5 % [facility] Mean Cell Volume 83.2 82.9 - 93.1 fL [facility] Mean Cell Hemoglobin 29.1 27.5 - 32.1 pg [facility] Mean Cell Hemoglobin Concentration 34.9 32.0 - 35.7 g/dL [facility] Platelet 147 145 - 357 x10(3)/mc L [facility] RDW Standard Deviation 39.9 36.0 - 45.0 fL [facility] RDW coefficient of variation 13.2 11.4 - 13.8 % [facility] Mean Platelet Volume 9.9 7.6 - 12.9 fL [facility] NRBC% auto 0.0 % [facility] NRBC Absolute 0.000 0.000 - 0.000 x10(3)/mc L [facility] Blood 02/18/2024 1:40 AM EDT 02/18/2024 1:56 AM EDT Narrative Resulting Agency Comment Spec In Lab Neftali FRENCH HEMATOLOGY ORDER OLE [facility] [place] [address] * (ABNORMAL) Basic Metabolic Panel (non-fasting) (02/18/2024 1:40 AM EDT) Glucose 176 65 - 199 mg/dL [facility] Comment:Diabetes: >=200 mg/d L plus symptoms Blood Urea Nitrogen 10 10 - 20 mg/dL [facility] Creatinine 0.65(L) 0.80 - 1.50 mg/dL [facility] Sodium 135 135 - 145 mmol/L [facility] Potassium 4.2 3.5 - 5.0 mmol/L [facility] Comment: Please note: ??Patients with WBC >100,000 may have falsely elevated Potassium levels. ??For accurate Potassium quantification in these patients send serum separator tube (gold top) for subsequent determinations. ??Contact the Clinical Chemistry Laboratory if there are any questions. Chloride 106 98 - 107 mmol/L [facility] Carbon Dioxide 20(L) 22 - 31 mmol/L [facility] Anion Gap 9 5 - 15 mmol/L [facility] Calcium 7.6(L) 8.5 - 10.5 mg/dL [facility] Est Glomerular Filtration Rate 105 >=60 mL/min/1. 73 m?? [place] [...] Lab Hayder Graham MD CHEMISTRY ORDERABLE S [facility] [place] [address] * (ABNORMAL) Troponin (02/18/2024 1:40 AM EDT) Troponin-T, High Sensitivity 342(H) <=22 ng/L [facility] Comment: This patient's troponin [...] troponin value can be found in the [facility] Laboratory Test Catalog Troponin - [facility] Test Catalog Reference: Fourth [place] Definition of Myocardial Infarction. Journal of the [place] [employer] 2018;72:0983-9758 Blood 02/18/2024 1:40 AM EDT 02/18/2024 1:56 AM EDT Narrative Resulting Agency Comment Spec In Lab Hayder Graham MD CHEMISTRY ORDERABLE S [facility] [place] [address] * POCT Glucose (02/17/2024 8:13 PM EDT) Glucose, POC 142 65 - 199 mg/dL [facility] Comment: Supplemental ranges: <140 mg/dL before meals <180 mg/dL all other times of the day Blood 02/17/2024 8:13 PM EDT 02/17/2024 8:13 PM EDT Hayder Graham MD POINT OF CARE TEST ORDERABLES Performing Organization Address [facility] Co de Phone Number [facility] [place] [address] * POCT Glucose (02/17/2024 5:42 PM EDT) Glucose, POC 160 65 - 199 mg/dL [facility] Comment: Supplemental ranges: <140 mg/dL before meals <180 mg/dL all other times of the day Blood 02/17/2024 5:42 PM EDT 02/17/2024 5:42 PM EDT Hayder Graham MD POINT OF CARE TEST ORDERABLES Performing Organization Address [facility] Co de Phone Number [facility] [place] [address] * Hemoglobin (02/17/2024 5:42 PM EDT) [facility] Signature Hemoglobin 13.7 13.7 - 16.5 g/dL [facility] Blood 02/17/2024 5:42 PM EDT 02/17/2024 6:10 PM EDT Narrative Resulting Agency Comment Spec In Lab Hayder Graham MD HEMATOLOGY ORDERABL ES Performing Organization Address [facility] Co de Phone Number [facility] [place] [address] * Potassium (02/17/2024 5:42 PM EDT) [facility] Signature Potassium 4.3 3.5 - 5.0 mmol/L [place] Lab Hayder Graham MD CHEMISTRY ORDERABLE S [facility] [place] [address] * (ABNORMAL) BLOOD GAS 2 ARTERIAL (02/17/2024 4:18 PM EDT) pH, Arterial 7.34(L) 7.35 - 7.45 [facility] PCO2, Arterial 40 35 - 45 mmHg [facility] PO2, Arterial 78(L) 85 - 104 mmHg [facility] Bicarbonate, Arterial 20.8 20.0 - 26.0 mmol/L [facility] Base Excess, Arterial -5.1(L) -3.0 - 3.0 mmol/L [facility] Hgb Blood Gas 14.6 13.7 - 16.5 g/dL [facility] Oxyhemoglobin, Arterial 93.0(L) 94.0 - 97.0 % [facility] Carboxyhemoglob in, Arterial 0.3 % [facility] Comment: Nonsmokers: 0.5-1.5% COHB Smokers: Variable, but usually less than 10% Toxic: 20-30% COHB Lethal: Greater than 60% COHB Methemoglobin, Arterial 0.8 <=1.5 % [facility] Na Whole Blood 136 135 - 145 mmol/L [facility] K Whole Blood 4.1 3.5 - 5.0 mmol/L [facility] Comment: Please note: Patients with WBC >100,000 may have falsely elevated Potassium levels. Contact the Clinical Chemistry Laboratory if there are any questions. ICa Whole Blood 1.10(L) 1.15 - 1.33 mmol/L [facility] Comment: Note: ??Total bilirubin higher than 20 mg/dL may lead to falsely low ionized calcium. CL Whole Blood 105 98 - 107 mmol/L [facility] Gluc Whole Bld 159 65 - 199 mg/dL [facility] Comment:Diabetes: >=200 mg/d L plus symptoms. Lactate WB 1.2 0.5 - 2.2 mmol/L [facility] FIO2 Art 40 % [facility] PF Ratio Art 195 [facility] Blood 02/17/2024 4:18 PM EDT 02/17/2024 4:18 PM EDT Hayder Graham MD POINT OF CARE TEST ORDERABLES [facility] [place] [address] * XR Chest One View (02/17/2024 1:44 PM EDT) [employer] WORKSTATION ID [id number] DH RAD Anatomical Region Laterality Modality Chest N/A Digital Radiogra phy Impressions 02/17/2024 2:12 PM EDT 1. ??No definite pleural fluid collection or pneumothorax. 2. ??Right IJ Monroe-Kaila catheter tip terminates in a descending branch [...] by: Denzel Hankins MD, [facility] ??([phone]), at 02/17/2024 2:12 PM Narrative 02/17/2024 2:12 PM EDT EXAMINATION: XR CHEST ONE VIEW CLINICAL HISTORY: s/p avr/cabg eval effusions TECHNIQUE: 1 view of the chest COMPARISON: Chest x-ray 01/09/2024, chest CT 02/03/2024 FINDINGS: ET tube tip terminates 5.2 cm above the carlos. Right IJ Monroe-Kaila catheter tip terminates in a descending branch [...] 5.2 cm above the carlos. Right IJ Monroe-Ganzcatheter tip terminates in a descending branch of [...] fluid collection or pneumothorax. 2. Right IJ Monroe-Kaila catheter tip terminates in a descending branch [...] healthcare manager that requested your imaging first. Hayder Graham MD IMG DX ORDERABLES * (ABNORMAL) BLOOD GAS 2 ARTERIAL (02/17/2024 1:31 PM EDT) pH, Arterial 7.35 7.35 - 7.45 [facility] PCO2, Arterial 39 35 - 45 mmHg [facility] PO2, Arterial 320(H) 85 - 104 mmHg [facility] Bicarbonate, Arterial 21.4 20.0 - 26.0 mmol/L [facility] Base Excess, Arterial -4.2(L) -3.0 - 3.0 mmol/L [facility] Hgb Blood Gas 14.1 13.7 - 16.5 g/dL [facility] Oxyhemoglobin, Arterial 97.9(H) 94.0 - 97.0 % [facility] Carboxyhemoglob in, Arterial 0.3 % [facility] Comment: Nonsmokers: 0.5-1.5% COHB Smokers: Variable, but usually less than 10% Toxic: 20-30% COHB Lethal: Greater than 60% COHB Methemoglobin, Arterial 0.7 <=1.5 % [facility] Na Whole Blood 137 135 - 145 mmol/L [facility] K Whole Blood 4.2 3.5 - 5.0 mmol/L [facility] Comment: Please note: Patients with WBC >100,000 may have falsely elevated Potassium levels. Contact the Clinical Chemistry Laboratory if there are any questions. ICa Whole Blood 1.13(L) 1.15 - 1.33 mmol/L [facility] Comment: Note: ??Total bilirubin higher than 20 mg/dL may lead to falsely low ionized calcium. CL Whole Blood 108(H) 98 - 107 mmol/L [facility] Gluc Whole Bld 136 65 - 199 mg/dL [facility] Comment:Diabetes: >=200 mg/d L plus symptoms. Lactate WB 1.1 0.5 - 2.2 mmol/L [facility] FIO2 Art 100 % [facility] PF Ratio Art [address] [facility] Blood 02/17/2024 1:31 PM EDT 02/17/2024 1:31 PM EDT Hayder Graham MD POINT OF CARE TEST ORDERABLES [facility] [place] [address] * (ABNORMAL) Coox2 (02/17/2024 1:21 PM EDT) pO2, Coox 44 mmHg [facility] Hgb Blood Gas 13.1(L) 13.7 - 16.5 g/dL [facility] Oxyhemoglobin, Coox 76.4 % [facility] Carboxyhemoglo bin, Coox 0.3 % [facility] Comment: Nonsmokers: 0.5-1.5% COHB Smokers: Variable, but usually less than 10% Toxic: 20-30% COHB Lethal: Greater than 60% COHB Methemoglobin, Coox 0.8 <=1.5 % [facility] Source Coox Mixed Venous [facility] Blood 02/17/2024 1:21 PM EDT 02/17/2024 1:21 PM EDT Hayder Graham MD POINT OF CARE TEST ORDERABLES Performing Organization Address [facility]/ZIP Co de Phone Number [facility] [place] [address] * (ABNORMAL) BLOOD GAS 2 ARTERIAL (02/17/2024 12:14 PM EDT) pH, Arterial 7.39 7.35 - 7.45 [facility] PCO2, Arterial 40 35 - 45 mmHg [facility] PO2, Arterial 338(H) 85 - 104 mmHg [facility] Bicarbonate, Arterial 23.7 20.0 - 26.0 mmol/L [facility] Base Excess, Arterial -1.3 -3.0 - 3.0 mmol/L [facility] Hgb Blood Gas 11.0(L) 13.7 - 16.5 g/dL [facility] Oxyhemoglobin, Arterial 98.8(H) 94.0 - 97.0 % [facility] Carboxyhemoglob in, Arterial 0.3 % [facility] Comment: Nonsmokers: 0.5-1.5% COHB Smokers: Variable, but usually less than 10% Toxic: 20-30% COHB Lethal: Greater than 60% COHB Methemoglobin, Arterial 0.3 <=1.5 % [facility] Na Whole Blood 135 135 - 145 mmol/L [facility] K Whole Blood 5.1(H) 3.5 - 5.0 mmol/L [facility] Comment: Please note: Patients with WBC >100,000 may have falsely elevated Potassium levels. Contact the Clinical Chemistry Laboratory if there are any questions. ICa Whole Blood 1.13(L) 1.15 - 1.33 mmol/L [facility] Comment: Note: ??Total bilirubin higher than 20 mg/dL may lead to falsely low ionized calcium. CL Whole Blood 106 98 - 107 mmol/L [facility] Gluc Whole Bld 132 65 - 199 mg/dL [facility] Comment:Diabetes: >=200 mg/d L plus symptoms. Lactate WB 1.4 0.5 - 2.2 mmol/L [facility] Blood 02/17/2024 12:1 4 PM EDT 02/17/2024 12:14 PM EDT Hayder Graham MD POINT OF CARE TEST ORDERABLES Performing Organization Address [facility] Co de Phone Number [facility] [place] [address] * (ABNORMAL) Fibrinogen (02/17/2024 12:10 PM EDT) Fibrinogen 154(L) 200 - 393 mg/dL [facility] Comment: OR Result called [...] S Performing Organization Address [facility] Co de Phone Number [facility] [place] [address] * (ABNORMAL) Thrombin time (02/17/2024 12:10 PM EDT) Thrombin Time 18(H) 10 - 17 sec [facility] Comment: OR Result called [...] S Performing Organization Address [facility] Co de Phone Number [facility] [place] [address] * APTT (02/17/2024 12:10 PM EDT) Partial Thromboplastin Time 33 25 - 37 sec [facility] Comment: OR Result called by ?? LOMARL OR Results read back by: ? alonrda pagan at 2024-02-17 12:41:48 The PTT is [...] S Performing Organization Address [facility] Co de Phone Number [facility] [place] [address] * (ABNORMAL) Prothrombin Time (02/17/2024 12:10 PM EDT) Prothrombin Time 16.7(H) 9.4 - 12.5 sec [facility] Comment: OR Result called by ?? LOMARL OR Results read back by: ? alondra pagan at 2024-02-17 12:41:48 International Normalization Ratio 1.5 [facility] Comment: OR Result called [...] Lab Tara York MD HEMATOLOGY ORDERABLE S [facility] [place] [address] * (ABNORMAL) Hemogram (02/17/2024 12:10 PM EDT) White Blood Cell 11.1(H) 4.0 - 9.5 x10(3)/mc L [facility] Red Blood Cell 3.50(L) 4.58 - 5.54 x10(6)/mc L [facility] Hemoglobin 10.4(L) 13.7 - 16.5 g/dL [facility] Hematocrit 30.2(L) 40.5 - 48.5 % [facility] Comment: This result has been called to ALONDRA PAGAN by Eddie López on 02 17 2024 at 1226, and has been read back. Mean Cell Volume 86.3 82.9 - 93.1 fL [facility] Mean Cell Hemoglobin 29.7 27.5 - 32.1 pg [facility] Mean Cell Hemoglobin Concentration 34.4 32.0 - 35.7 g/dL [facility] Platelet 118(L) 145 - 357 x10(3)/mc L [facility] RDW Standard Deviation 40.2 36.0 - 45.0 fL [facility] RDW coefficient of variation 12.8 11.4 - 13.8 % [facility] Mean Platelet Volume 9.5 7.6 - 12.9 fL [facility] NRBC% auto 0.0 % [facility] NRBC Absolute 0.000 0.000 - 0.000 x10(3)/mc L [facility] Blood 02/17/2024 12:1 0 PM EDT 02/17/2024 12:19 PM EDT Narrative Resulting Agency Comment Spec In Lab Tara York MD HEMATOLOGY ORDERABLE S [facility] [place] [address] * (ABNORMAL) BLOOD GAS 2 ARTERIAL (02/17/2024 11:43 AM EDT) pH, Arterial 7.38 7.35 - 7.45 [facility] PCO2, Arterial 40 35 - 45 mmHg [facility] PO2, Arterial 304(H) 85 - 104 mmHg [facility] Bicarbonate, Arterial 23.2 20.0 - 26.0 mmol/L [facility] Base Excess, Arterial -1.9 -3.0 - 3.0 mmol/L [facility] Hgb Blood Gas 11.1(L) 13.7 - 16.5 g/dL [facility] Oxyhemoglobin, Arterial 98.6(H) 94.0 - 97.0 % [facility] Carboxyhemoglob in, Arterial 0.3 % [facility] Comment: Nonsmokers: 0.5-1.5% COHB Smokers: Variable, but usually less than 10% Toxic: 20-30% COHB Lethal: Greater than 60% COHB Methemoglobin, Arterial 0.3 <=1.5 % [facility] Na Whole Blood 133(L) 135 - 145 mmol/L [facility] K Whole Blood 6.2(Critic al) 3.5 - 5.0 mmol/L [facility] Comment: Noted by instrument repairer helper. Please note: Patients with WBC >100,000 may have falsely elevated Potassium levels. Contact the Clinical Chemistry Laboratory if there are any questions. ICa Whole Blood 0.97(L) 1.15 - 1.33 mmol/L [facility] Comment: Note: ??Total bilirubin higher than 20 mg/dL may lead to falsely low ionized calcium. CL Whole Blood 104 98 - 107 mmol/L [facility] Gluc Whole Bld 128 65 - 199 mg/dL [facility] Comment:Diabetes: >=200 mg/d L plus symptoms. Lactate WB 1.1 0.5 - 2.2 mmol/L [facility] Blood 02/17/2024 11:4 3 AM EDT 02/17/2024 11:43 AM EDT Hayder Graham MD POINT OF CARE TEST ORDERABLES [facility] [address] [place] [address] * (ABNORMAL) BLOOD GAS 2 ARTERIAL (02/17/2024 11:08 AM EDT) pH, Arterial 7.38 7.35 - 7.45 [facility] PCO2, Arterial 38 35 - 45 mmHg [facility] PO2, Arterial 334(H) 85 - 104 mmHg [facility] Bicarbonate, Arterial 22.0 20.0 - 26.0 mmol/L [facility] Base Excess, Arterial -3.2(L) -3.0 - 3.0 mmol/L [facility] Hgb Blood Gas 10.8(L) 13.7 - 16.5 g/dL [facility] Oxyhemoglobin, Arterial 98.7(H) 94.0 - 97.0 % [facility] Carboxyhemoglob in, Arterial 0.3 % [facility] Comment: Nonsmokers: 0.5-1.5% COHB Smokers: Variable, but usually less than 10% Toxic: 20-30% COHB Lethal: Greater than 60% COHB Methemoglobin, Arterial 0.3 <=1.5 % [facility] Na Whole Blood 131(L) 135 - 145 mmol/L [facility] K Whole Blood 6.4(Critic al) 3.5 - 5.0 mmol/L [facility] Comment: Noted by instrument repairer helper. Please note: Patients with WBC >100,000 may have falsely elevated Potassium levels. Contact the Clinical Chemistry Laboratory if there are any questions. ICa Whole Blood 0.98(L) 1.15 - 1.33 mmol/L [facility] Comment: Note: ??Total bilirubin higher than 20 mg/dL may lead to falsely low ionized calcium. CL Whole Blood 104 98 - 107 mmol/L [facility] Gluc Whole Bld 127 65 - 199 mg/dL [facility] Comment:Diabetes: >=200 mg/d L plus symptoms. Lactate WB 1.0 0.5 - 2.2 mmol/L [facility] Blood 02/17/2024 11:0 8 AM EDT 02/17/2024 11:08 AM EDT Hayder Graham MD POINT OF CARE TEST ORDERABLES Performing Organization Address [facility] de Phone Number [facility] [place] [address] * (ABNORMAL) Hemoglobin and Hematocrit, blood (02/17/2024 11:04 AM EDT) Hemoglobin 9.6(L) 13.7 - 16.5 g/dL [facility] Hematocrit 28.0(L) 40.5 - 48.5 % [facility] Comment: This result has been called to ALONDRA PAGAN by Eddie López on 02 17 2024 at 1120, and has been read back. Blood 02/17/2024 11:0 4 AM EDT 02/17/2024 11:12 AM EDT Narrative Resulting Agency Comment Spec In Lab Hayder Graham MD HEMATOLOGY ORDERABL ES Performing Organization Address [facility] de Phone Number [facility] [place] [address] * (ABNORMAL) Platelet count (02/17/2024 11:04 AM EDT) Platelet 106(L) 145 - 357 x10(3)/mc L [facility] Immature Plt % 1.6 0.0 - 7.4 % [facility] Comment: Limitation of the Immature Platelet Fraction (IPF)-May be less reliable when the platelet count is less than 78n950/uL due to statistical imprecision. The IPF value [...] in a decreased state of production. References: [employer] The Clinical Value of the Immature Platelet Fraction (IPF) in Cell Recovery Document Number [id number] 03/2011 [employer] The Role of the Immature Platelet Fraction (IPF) in the Differential Diagnosis of Thrombocytopenia, Document MKT-10-1209 V002/15/14 Blood 02/17/2024 11:0 4 AM EDT 02/17/2024 11:12 AM EDT Narrative Resulting Agency Comment Spec In Lab Hayder Graham MD HEMATOLOGY ORDERABL ES Performing Organization Address City/[facility]/ZIP Co de Phone Number [facility] [place] [address] * (ABNORMAL) Fibrinogen (02/17/2024 11:04 AM EDT) Fibrinogen 149(L) 200 - 393 mg/dL [facility] Comment: OR Result called by ?? SALVLT OR Results read back by: ? Alondra Pagan at 2024-02-17 11:30:47 A fibrinogen level >100 mg/dL is adequate for hemostasis in most patients without underlying bleeding disorders. Blood 02/17/2024 11:0 4 AM EDT 02/17/2024 11:12 AM EDT Narrative Resulting Agency Comment Spec In Lab Hayder Graham MD HEMATOLOGY ORDERABL ES Performing Organization Address City/[facility]/ZIP Co de Phone Number [facility] [place] [address] * (ABNORMAL) BLOOD GAS 2 ARTERIAL (02/17/2024 10:41 AM EDT) pH, Arterial 7.37 7.35 - 7.45 [facility] PCO2, Arterial 44 35 - 45 mmHg [facility] PO2, Arterial 335(H) 85 - 104 mmHg [facility] Bicarbonate, Arterial 24.9 20.0 - 26.0 mmol/L [facility] Base Excess, Arterial -0.4 -3.0 - 3.0 mmol/L [facility] Hgb Blood Gas 11.5(L) 13.7 - 16.5 g/dL [facility] Oxyhemoglobin, Arterial 98.9(H) 94.0 - 97.0 % [facility] Carboxyhemoglob in, Arterial 0.1 % [facility] Comment: Nonsmokers: 0.5-1.5% COHB Smokers: Variable, but usually less than 10% Toxic: 20-30% COHB Lethal: Greater than 60% COHB Methemoglobin, Arterial 0.3 <=1.5 % [facility] Na Whole Blood 132(L) 135 - 145 mmol/L [facility] K Whole Blood 5.9(H) 3.5 - 5.0 mmol/L [facility] Comment: Please note: Patients with WBC >100,000 may have falsely elevated Potassium levels. Contact the Clinical Chemistry Laboratory if there are any questions. ICa Whole Blood 1.02(L) 1.15 - 1.33 mmol/L [facility] Comment: Note: ??Total bilirubin higher than 20 mg/dL may lead to falsely low ionized calcium. CL Whole Blood 104 98 - 107 mmol/L [facility] Gluc Whole Bld 129 65 - 199 mg/dL [facility] Comment:Diabetes: >=200 mg/d L plus symptoms. Lactate WB 1.1 0.5 - 2.2 mmol/L [facility] Blood 02/17/2024 10:4 1 AM EDT 02/17/2024 10:41 AM EDT Hayder Graham MD POINT OF CARE TEST ORDERABLES [facility] [place] [address] * (ABNORMAL) BLOOD GAS 2 ARTERIAL (02/17/2024 10:06 AM EDT) pH, Arterial 7.38 7.35 - 7.45 [facility] PCO2, Arterial 42 35 - 45 mmHg [facility] PO2, Arterial 329(H) 85 - 104 mmHg [facility] Bicarbonate, Arterial 24.7 20.0 - 26.0 mmol/L [facility] Base Excess, Arterial -0.3 -3.0 - 3.0 mmol/L [facility] Hgb Blood Gas 11.0(L) 13.7 - 16.5 g/dL [facility] Oxyhemoglobin, Arterial 99.0(H) 94.0 - 97.0 % [facility] Carboxyhemoglob in, Arterial 0.3 % [facility] Comment: Nonsmokers: 0.5-1.5% COHB Smokers: Variable, but usually less than 10% Toxic: 20-30% COHB Lethal: Greater than 60% COHB Methemoglobin, Arterial 0.3 <=1.5 % [facility] Na Whole Blood 132(L) 135 - 145 mmol/L [facility] K Whole Blood 6.0(H) 3.5 - 5.0 mmol/L [facility] Comment: Please note: Patients with WBC >100,000 may have falsely elevated Potassium levels. Contact the Clinical Chemistry Laboratory if there are any questions. ICa Whole Blood 0.97(L) 1.15 - 1.33 mmol/L [facility] Comment: Note: ??Total bilirubin higher than 20 mg/dL may lead to falsely low ionized calcium. CL Whole Blood 102 98 - 107 mmol/L [facility] Gluc Whole Bld 123 65 - 199 mg/dL [facility] Comment:Diabetes: >=200 mg/d L plus symptoms. Lactate WB 1.1 0.5 - 2.2 mmol/L [facility] Blood 02/17/2024 10:0 6 AM EDT 02/17/2024 10:06 AM EDT Hayder Graham MD POINT OF CARE TEST ORDERABLES Performing Organization Address City/State/[facility] Co de Phone Number [facility] [place] [address] * Surgical Pathology Report (02/17/2024 10:01 AM EDT) Final Diagnosis [id number] ? Location: [facility]; [facility]; The signing pathologist has (i) examined the relevant preparation(s) for the specimen(s) and (ii) rendered or confirmed the diagnosis(es). . ?Surgical Pathology DIAGNOSIS Aortic valve leaflets, excision: Valve leaflets with myxoid degeneration, nodular fibrosis and dystrophic calcifications. Electronically signed by: ?Lindsay FERNANDEZ, Livier Gonzalez Verified: ??02/24/2024 13:49 ??Pathologist Performed at: ??-[facility] – [place] Dept. of Pathology, [place] [address] Manager Cancer: Job Brewer MD, FCAP, ??CLIA Certificate: [id number] SPECIMEN(S) SUBMITTED A - Aortic Valve Leaflets, [...] Sections Processing Blocks submitted for decalcification: A1. [employer] sections in 1 cassette labeled A1. ??ajw 02/24/2024 1:49 PM EDT [facility] AORTIC STRUCTURE / Unknown 02/17/2024 10:01 AM EDT 02/17/2024 10:01 AM EDT Hayder Graham MD PATHOLOGY/[place] [address] * Specimen to Pathology (02/17/2024 10:01 AM EDT) AP Specimen 02/17/2024 10:0 1 AM EDT 02/17/2024 10:01 AM EDT Narrative [facility] - 02/17/2024 10:01 AM EDT Specimen requisition ordered. ??Separate Pathology report to follow Hayder Graham MD PATHOLOGY/CYTOLOGY ORDERABLES [facility] [place] [address] * (ABNORMAL) BLOOD GAS 2 ARTERIAL (02/17/2024 9:35 AM EDT) pH, Arterial 7.33(L) 7.35 - 7.45 [facility] PCO2, Arterial 35 35 - 45 mmHg [facility] PO2, Arterial 318(H) 85 - 104 mmHg [facility] Bicarbonate, Arterial 17.9(L) 20.0 - 26.0 mmol/L [facility] Base Excess, Arterial -8.0(L) -3.0 - 3.0 mmol/L [facility] Hgb Blood Gas 11.0(L) 13.7 - 16.5 g/dL [facility] Oxyhemoglobin, Arterial 98.8(H) 94.0 - 97.0 % [facility] Carboxyhemoglob in, Arterial 0.3 % [facility] Comment: Nonsmokers: 0.5-1.5% COHB Smokers: Variable, but usually less than 10% Toxic: 20-30% COHB Lethal: Greater than 60% COHB Methemoglobin, Arterial 0.3 <=1.5 % [facility] Na Whole Blood 131(L) 135 - 145 mmol/L [facility] K Whole Blood 5.8(H) 3.5 - 5.0 mmol/L [facility] Comment: Please note: Patients with WBC >100,000 may have falsely elevated Potassium levels. Contact the Clinical Chemistry Laboratory if there are any questions. ICa Whole Blood 0.98(L) 1.15 - 1.33 mmol/L [facility] Comment: Note: ??Total bilirubin higher than 20 mg/dL may lead to falsely low ionized calcium. CL Whole Blood 101 98 - 107 mmol/L [facility] Gluc Whole Bld 122 65 - 199 mg/dL [facility] Comment:Diabetes: >=200 mg/d L plus symptoms. Lactate WB 0.8 0.5 - 2.2 mmol/L [facility] Blood 02/17/2024 9:35 AM EDT 02/17/2024 9:35 AM EDT Hayder Graham MD POINT OF CARE TEST ORDERABLES [facility] [place] [address] * (ABNORMAL) BLOOD GAS 2 VENOUS (02/17/2024 9:34 AM EDT) pH, Venous 7.22(Criti marquez) 7.32 - 7.42 [facility] Comment:Noted by instrument repairer helper. PCO2, Venous 43 41 - 51 mmHg [facility] Comment:Noted by instrument repairer helper. PO2, Venous 57(H) 25 - 40 mmHg [facility] Comment:Noted by instrument repairer helper. Bicarbonate, Venous 17.1 mmol/L [facility] Comment:Noted by instrument repairer helper. Base Excess, Venous -10.6 mmol/L [facility] Comment:Noted by instrument repairer helper. Hgb Blood Gas 11.2(L) 13.7 - 16.5 g/dL [facility] Comment:Noted by instrument repairer helper. Oxyhemoglobin, Venous 86.5 % [facility] Comment:Noted by instrument repairer helper. Carboxyhemoglob in, Venous 0.3 % [facility] Comment: Noted by instrument repairer helper. Nonsmokers: 0.5-1.5% COHB Smokers: Variable, but usually less than 10% Toxic: 20-30% COHB Lethal: Greater than 60% COHB Methemoglobin, Venous 0.0 <=1.5 % [facility] Comment:Noted by instrument repairer helper. Na Whole Blood 156(H) 135 - 145 mmol/L [facility] Comment:Noted by instrument repairer helper. K Whole Blood 5.5(H) 3.5 - 5.0 mmol/L [facility] Comment: Noted by instrument repairer helper. Please note: Patients with WBC >100,000 may have falsely elevated Potassium levels. Contact the Clinical Chemistry Laboratory if there are any questions. ICa Whole Blood 1.03(L) 1.15 - 1.33 mmol/L [facility] Comment: Noted by instrument repairer helper. Note: ??Total bilirubin higher than 20 mg/dL may lead to falsely low ionized calcium. CL Whole Blood 100 98 - 107 mmol/L [facility] Comment:Noted by instrument repairer helper. Gluc Whole Bld 132 65 - 199 mg/dL [facility] Comment: Noted by instrument repairer helper. Diabetes: >=200 mg/dL plus symptoms Lactate WB 1.0 0.5 - 2.2 mmol/L [facility] Comment:Noted by instrument repairer helper. Blood Gas Source Venous [facility] Blood 02/17/2024 9:34 AM EDT 02/17/2024 9:34 AM EDT Hayder Graham MD POINT OF CARE TEST ORDERABLES [facility] [place] [address] * (ABNORMAL) BLOOD GAS 2 ARTERIAL (02/17/2024 8:07 AM EDT) pH, Arterial 7.43 7.35 - 7.45 [facility] PCO2, Arterial 34(L) 35 - 45 mmHg [facility] PO2, Arterial 581(H) 85 - 104 mmHg [facility] Bicarbonate, Arterial 21.7 20.0 - 26.0 mmol/L [facility] Base Excess, Arterial -2.6 -3.0 - 3.0 mmol/L [facility] Hgb Blood Gas 14.5 13.7 - 16.5 g/dL [facility] Oxyhemoglobin, Arterial 99.0(H) 94.0 - 97.0 % [facility] Carboxyhemoglob in, Arterial 0.4 % [facility] Comment: Nonsmokers: 0.5-1.5% COHB Smokers: Variable, but usually less than 10% Toxic: 20-30% COHB Lethal: Greater than 60% COHB Methemoglobin, Arterial 0.3 <=1.5 % [facility] Na Whole Blood 139 135 - 145 mmol/L [facility] K Whole Blood 4.0 3.5 - 5.0 mmol/L [facility] Comment: Please note: Patients with WBC >100,000 may have falsely elevated Potassium levels. Contact the Clinical Chemistry Laboratory if there are any questions. ICa Whole Blood 1.09(L) 1.15 - 1.33 mmol/L [facility] Comment: Note: ??Total bilirubin higher than 20 mg/dL may lead to falsely low ionized calcium. CL Whole Blood 106 98 - 107 mmol/L [facility] Gluc Whole Bld 100 65 - 199 mg/dL [facility] Comment:Diabetes: >=200 mg/d L plus symptoms. Lactate WB 1.3 0.5 - 2.2 mmol/L [facility] Blood 02/17/2024 8:07 AM EDT 02/17/2024 8:07 AM EDT Hayder Graham MD POINT OF CARE TEST ORDERABLES Performing Organization Address City/[facility]/ZIP Co de Phone Number [facility] [place] [address] * POCT Glucose (02/17/2024 6:38 AM EDT) Glucose, POC 98 65 - 199 mg/dL [facility] Comment: Supplemental ranges: <140 mg/dL before meals <180 mg/dL all other times of the day Blood 02/17/2024 6:38 AM EDT 02/17/2024 6:38 AM EDT Hayder Graham MD POINT OF CARE TEST ORDERABLES Performing Organization Address [facility] Co de Phone Number [facility] [place] [address] * Transesophageal Echo/OR (02/17/2024 6:33 AM EDT) [...] [facility] [...] Routine documented in this encounter Care Teams Landfill Grader Relationship Specialty Start Date End Date Aparna Jordan APRN PCP - General Family Medicine 10/21/23 05/26/24 documented as of this encounter
--- OUTSIDE RECORDS SUMMARY | 2024-09-17 10:05 | XMS_ITS | Encounter Summary ---
Author Organization [facility] Address [place] [address] Care Team Providers Care Upholstery Technician Name Role Phone Vanessa Christian MAURI Primary Care Provider [phone] Encounter Details Date Type Department Care Team (Late st Contact Info) Description 02/14/2024 Orders [place] [id number] Zak Farmer MD [facility] [place] [address] Coronary artery disease, unspecified vessel or lesion type, unspecified whether angina present, unspecified whether [place] or transplanted heart (Primary Dx) Social History [...] When compared with ECG of 17-FEB-2024 13:24, OR interval has decreased T wave inversion now evident in Anterior leads Confirmed by Paul Guzman ([id number]) on 03/15/2024 8:36:23 AM MUSE SYSTEM 03/12/2024 2:35 PM EDT 03/15/2024 8:36 AM EDT Zak Farmer MD ECG ORDERABLES MUSE SYSTEM * XR Chest PA & Lateral (Generic) (03/12/2024 1:42 PM EDT) Pathologist [facility] WORKSTATION ID [id number] [facility] Anatomical Region Laterality Modality Chest N/A Digital [...] have questions please contact the health care rep that requested your imaging first. ? 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 Zak Farmer MD IMG DX ORDERABLES documented in this encounter Visit Diagnoses Diagnosis Coronary artery disease, unspecified vessel or lesion type, unspecified whether angina present, unspecified whether [place] or transplanted heart- Primary Coronary artery disease, unspecified vessel or lesion type, unspecified whether angina present, unspecified whether [place] or transplanted heart documented in this encounter Care Teams Upholstery Technician Relationship Specialty Start Date End Date Vanessa Christian APRN PCP - General Family Medicine 10/21/23 05/26/24 documented as of this encounter
--- OUTSIDE RECORDS SUMMARY | 2024-09-17 10:05 | XMS_ITS | Encounter Summary ---
Author Organization [facility] [place] [address] Care Team Providers Care Oilfield Plant And Field Operator Name Role Phone Vanessa Christian MAURI Primary Care Provider [phone] Reason for Visit * Auth/Cert (Routine) Specialty [...] [facility] [place] [place] [address] [facility] Referral ID Status Reason Start Date Expiration Date Visits Re quested Visits Authorized [id number] 1 1 Encounter Details Date Type Department Care Team (Latest Contact Info) Description 02/03/2024 8:06 AM EDT - 02/03/2024 2:54 PM EDT Hospital En[place] [address] Rima Dickinson MD [facility] [place] [address] Screening for cardiovascular condition; Aortic valve stenosis, [...] lbs Follow-up Visits Follow up with your suggestion clerk in 2-4 weeks Access Site 'Black and Blue' and tenderness is expected during the first week Call if you noted a mass (lump) greater than the size of a ellis Call Office with any Questions and if you have any of the following Clarence Lane M.D Interventional Truck Car And Bus Cleaner Reports Analysis Manager #: [phone] * Attachments The following attachments cannot be [...] Lane MD - 02/03/2024 11:48 AM EDT [facility] Interventional Cardiology Adult Pre-Procedure H&P Update: Cardiac Catheterization Karlos Anthony [id number] 1960 Chief Complaint: Aortic stenosis HPI: Mr. [...] is inthe chart Clarence Lane MD Interventional Truck Car And Bus Cleaner 02/03/24 11:48 AM documented in this encounter Miscellaneous Notes * Brief Op Note - Clarence Lane MD - 02/03/2024 12:51 PM EDT Preliminary Cardiac Catheterization Procedure Note: Patient Name: Karlos Anthony : [id number] MR#: [id number] Case Date: 02/03/2024 Reports Analysis Manager: Surgeon(s) and Role: * Saira Lua [...] Modality Other Narrative 02/12/2024 3:47 PM EDT ?[facility] ? Cardiac Catheterization/Intervention Report ? Patient Name: Patenaude, Karlos ? Procedure Date: 02/03/2024 ? A #: [id number] ? Primary Physician: Mogadam, Emad ? Case #: [id number] ? File Name: [id number] ? Catheterization Order Number: [id number] ? [facility] ? Final Report [place], [place] ? Patient Name: ? Karlos Anthony ? ID#: ?[id number] ? : ?1960 ? Procedure Date: ? [...] Procedure Note Saira Lua MD - 02/12/2024 [facility] Cardiac Catheterization/Intervention Report Patient Name: Karlos Anthony Procedure Date: 02/03/2024 A #: [id number] Primary Physician: Saira Lua Case #: [id number] File Name: [id number] Catheterization Order Number: [id number] [facility] FinalReport [place], [place] Patient Name: Karlos Anthony ID#:[id number] :1960 Procedure Date: February 03, 2024 Case [...] designated as ASA Class III. The [facility] clinical frailty scale is 3: [...] (Bezet) 372 ms MUSE SYSTEM Calculated P Chi[place]o 59 degrees MUSE SYSTEM Calculated R Chireno 34 degrees MUSE SYSTEM Calculated T Chi[place]o 63 degrees MUSE SYSTEM INTERPRETATION Sinus bradycardia [...] MD) documented in this encounter Care Teams Oilfield Plant And Field Operator Relationship Specialty Start Date End Date Vanessa Christian APRN PCP - General Family Medicine 10/21/23 05/26/24 documented as of this encounter
--- OUTSIDE RECORDS SUMMARY | 2024-09-17 10:06 | XMS_ITS | Encounter Summary ---
Author Organization [facility] Address [facility] [place] [address] Care Team Providers Care Processing Engineer Name Role Phone Vanessa Christian MAURI Primary Care Provider [phone] Reason for Visit * Consultation (Routine) - Closed Specialty Diagnoses / Procedures Referred By Contac t Referred To Contact Cardiac Surgery Diagnoses Nonrheumatic aortic valve stenosis significant - TAVR ( defers to Card Surg d/t age) Neftali Ernandez MD [facility] [place] [address] Zak Farmer MD [facility] [place] [address] Referral ID Status Reason Start Date Expiration Date V isits Requested Visits Authorized [id number] Closed Consult, Test & Treat 10/21/2023 10/20/2024 1 1 Encounter Details Date Type Department Care Team (Late st Contact Info) Description 01/09/2024 1:40 PM EDT Office [place] [address] Zak Farmer MD [facility] [place] [address] Nonrheumatic aortic valve stenosis Social [...] office. Best personal regards, Zak Farmer MD [phone] In aggregate 55 minutes were spent evaluating [...] have questions please contact the health rn progressive care unit that requested your imaging first. ? Narrative [...] who have questions please contactthe health rn progressive care unit that requested your imaging first. Zak Farmer [...] CHEMISTRY ORDERABLE S [facility] [place] [address] * Hepatic Function Panel (01/09/2024 2:58 PM [...] Performing Organization Address [facility] Co de Phone Number [facility] [place] [address] * Prothrombin Time (01/09/2024 2:58 PM EDT) [...] MD HEMATOLOGY ORDERABL ES Performing Organization Address [facility] Co de Phone Number [facility] [place] [address] * Type and Screen Future Surgery, [facility] ONLY) (01/09/2024 2:58 PM EDT) ABORH Type O NEGATIVE [facility] Patient BB History Not Found [facility] Expires at 0960 on: 02-20-2024 [facility] Ab Screen Interp Negative [facility] Blood 01/09/2024 2:58 PM EDT 01/09/2024 2:58 PM EDT Narrative Resulting Agency Comment Spec In Lab Zak Farmer MD [facility] Performing Organization Address City/State/[facility] Co de Phone Number [facility] [place] [address] documented in this encounter Visit Diagnoses Diagnosis Nonrheumatic aortic valve stenosis Aortic valve disorders Nonrheumatic aortic valve stenosis Aortic valve disorders documented in this encounter Care Teams Processing Engineer Relationship Specialty Start Date End Date Vanessa Christian, NUT ORCHARDIST PCP - General Family Medicine 10/21/23 05/26/24 documented as of this encounter
--- OUTSIDE RECORDS SUMMARY | 2024-09-17 10:06 | XMS_ITS | Encounter Summary ---
Author Organization [facility] [place] [address] Care Team Providers Care Title 1 Tutor Name Role Phone Victor M Lafleur MD Primary Care Provider [phone] Encounter Details Date Type Department Care Team (Late st Contact Info) Description 09/26/2023 Abstract Cardiology at [address] [address] Karen Billy, RN Nonrheumatic aortic [...] face documented in this encounter Care Teams Title 1 Tutor Relationship Specialty Start Date End Date Victor M Lafleur MD PCP - General 10/02/13 10/20/23 documented as of this encounter
--- OUTSIDE RECORDS SUMMARY | 2024-09-17 10:06 | XMS_ITS | Data Portability ---
Author Organization [place] - [facility] Address [address] [place] [address] Care Team Providers Care Neck Pinner Name Role Phone APARNA JORDAN Primary Care Provider SOFIA MCALLISTER Dentist Assessment No assessment recorded. Plan of Treatment Reminders Order Date Submit Date Provider Last Modified By Organization Details Last Modified Time Details Appointments None recorded . Lab magnesiu m, serum or plasma 024 12/18/19 24 [id number] [facility] (Registration ), [address] [place] [address] [place], [address], 4 14:25:25 BMP, serum or plasma 024 12/18/19 24 [facility] (Registration ), [address] [place] [address] [place], [address], 4 14:25:24 Referral None recorded . Procedures None recorded . Surgeries None recorded . Imaging None recorded . Medication Orders None recorded . Patient TargetsNo targets recorded. Patient Instructions Encounter Date Encounter Id Patient Instructions Last Modified By Organization Details Last Modified Time 09/19/2023 [id number] SCHEDULE FOLLOW UP IN 3 MONTHS IF YOU DONT HEAR FROM THE CARDIOLOGY DEPT THIS WEEK CALL [facility] SERVICE PROVIDER AND LET THEM KNOW IF YOUR BREATHING GETS WORSE- GO TO THE ER, DONT OVER DO THINGS PHYSICALLY EXPECT A CALL FROM SARA ZAFAR RE: UPDATING YOUR POWER OF ANTENNA INSTALLER (NEED 2 WITNESSED SIGNATURES) Not available 09/19/2023 09:25:07 12/18/2023 [id number] Karlos: expect a call from the STructural heart team at [facility] drink at least 6 glasses of water [...] 9.3 mg/dL 8.5-10 .1 normal Not Available [address] [place], [address] 12/18/2023 17:09:55 12/18/19 24 12/18/2023 LASIC METAB OLIC PANEL glucose 90 mg/dL 74-106 normal Not Available Baljit montemayor [address] [place], [address] 12/18/2023 17:09:55 12/18/19 24 12/18/2023 LASIC METAB OLIC PANEL BUN 14 mg/dL 7-18 normal Not Available Baljit montemayor [address] [place], [address] 12/18/2023 17:09:55 12/18/19 24 12/18/2023 LASIC METAB OLIC PANEL creatinine 1.0 mg/dL 0.70-1 .30 normal Not Available [address] [place], [address] 12/18/2023 17:09:55 12/18/19 24 12/18/2023 LASIC METAB [...] young er-ag ed adult s. Not Available [address] [place], [address] 12/18/2023 17:09:55 12/18/19 24 12/18/2023 LASIC METAB OLIC PANEL sodium 139 mmol/ L 136-14 5 normal Not Available [address] [place], [address] 12/18/2023 17:09:55 12/18/19 24 12/18/2023 LASIC METAB OLIC PANEL potassium 4.9 mmol/ L 3.5-5. 1 normal Not Available [address] [place], [address] 12/18/2023 17:09:55 12/18/19 24 12/18/2023 LASIC METAB OLIC PANEL chloride 104 mmol/ L 98-107 normal Not Available [address] [place], [address] 12/18/2023 17:09:55 12/18/19 24 12/18/2023 LASIC METAB OLIC PANEL CO2 30.9 mmol/ L 21.0-3 2.0 normal Not Available [address] [place], [address] 12/18/2023 17:09:55 12/18/19 24 12/18/2023 LASIC METAB OLIC PANEL anion gap 4.1 mmol/ L 3-11 normal Not Available [address] [place], [address] 12/18/2023 17:09:55 12/18/19 24 12/18/2023 MAGNE SIUM magnesium 1.8 mg/dL 1.8-2. 4 normal Not Available [address] [place], [address] 12/18/2023 17:09:56 07/27/20 24 07/27/2024 LIPID 2 cholesterol 131 mg/dL <200 Not Available [address] [place], [address] 07/27/2024 11:59:38 07/27/20 24 07/27/2024 LIPID 2 triglyceride 162 mg/dL <150 high Not Available [address] [place], [address] 07/27/2024 11:59:38 07/27/2007/27/2024 LIPID 2 HDL cholesterol 35 mg/dL 40-60 low Not Available Dominique blackburn [address] [place], [address] 07/27/2024 11:59:38 07/27/2007/27/2024 LIPID 2 calculated LDL [...] 18 years or older . Not Available [address] [place], [address] 07/27/2024 11:59:38 07/27/2007/27/2024 COMPR EHENS MADYSON METAB OLIC PANEL calcium 9.2 mg/dL 8.5-10 .1 normal Not Available [address] [place], [address] 07/27/2024 11:59:38 07/27/2007/27/2024 COMPR EHENS MADYSON METAB OLIC PANEL glucose 83 mg/dL 74-106 normal Not Available Baljit montemayor [address] [place], [address] 07/27/2024 11:59:38 07/27/2007/27/2024 COMPR EHENS MADYSON METAB OLIC PANEL BUN 20 mg/dL 7-18 high Not Available Baljit montemayor [address] [place], [address] 07/27/2024 11:59:38 07/27/2007/27/2024 COMPR EHENS MADYSON METAB OLIC PANEL creatinine 1.0 mg/dL 0.70-1 .30 normal Not Available [address] [place], [address] 07/27/2024 11:59:38 07/27/2007/27/2024 COMPR EHENS MADYSON METAB [...] young er-ag ed adult s. Not Available [address] [place], [address] 07/27/2024 11:59:38 07/27/2007/27/2024 COMPR EHENS MADYSON METAB OLIC PANEL total protein 6.8 g/dL 6.4-8. 2 normal Not Available [address] [place], [address] 07/27/2024 11:59:38 07/27/2007/27/2024 COMPR EHENS MADYSON METAB OLIC PANEL albumin 3.5 g/dL 3.4-5. 0 normal Not Available [address] [place], [address] 07/27/2024 11:59:38 07/27/2007/27/2024 COMPR EHENS MADYSON METAB OLIC PANEL bilirubin, total 0.77 mg/dL 0.2-1. 0 normal Not Available [address] [place], [address] 07/27/2024 11:59:38 07/27/2007/27/2024 COMPR EHENS MADYSON METAB OLIC PANEL alk phos 84 U/L 46-116 normal Not Available [address] [place], [address] 07/27/2024 11:59:38 07/27/2007/27/2024 COMPR EHENS MADYSON METAB OLIC PANEL sodium 141 mmol/ L 136-14 5 normal Not Available [address] [place], [address] 07/27/2024 11:59:38 07/27/2007/27/2024 COMPR EHENS MADYSON METAB OLIC PANEL potassium 4.8 mmol/ L 3.5-5. 1 normal Not Available [address] [place], [address] 07/27/2024 11:59:38 07/27/2007/27/2024 COMPR EHENS MADYSON METAB OLIC PANEL chloride 105 mmol/ L 98-107 normal Not Available [address] [place], [address] 07/27/2024 11:59:38 07/27/2007/27/2024 COMPR EHENS MADYSON METAB OLIC PANEL CO2 30.9 mmol/ L 21.0-3 2.0 normal Not Available [address] [place], [address] 07/27/2024 11:59:38 07/27/2007/27/2024 COMPR EHENS MADYSON METAB OLIC PANEL anion gap 5.1 mmol/ L 3-11 normal Not Available [address] [place], [address] 07/27/2024 11:59:38 07/27/2007/27/2024 COMPR EHENS MADYSON METAB OLIC PANEL AST 20 U/L 15-37 normal Not Available Baljit montemayor [address] [place], [address] 07/27/2024 11:59:38 07/27/2007/27/2024 COMPR EHENS MADYSON METAB OLIC PANEL ALT 32 U/L 16-63 normal Not Available Baljit montemayor [address] [place], [address] 07/27/2024 11:59:38 07/27/2007/27/2024 CREAT INE KINAS E creatine kinase 133 U/L 39-308 normal Not Available [facility] [address] , [place], [address] 07/27/2024 11:48:30 09/11/2012/05/2022 trans -thor acic echoc ardio gram (TTE) (PROC ) No observ ation record ed. [email or web address] [facility] Xray [address] , [place], [address], 09/13/2023 09:29:52 09/11/20 23 06/01/2022 XR, hip, unila teral No observ ation record ed. [email or web address] Not Available 2022 09:29:19 09/11/2012/06/2019 , echoc ardio gram No observ ation record ed. [email or web address] [facility] Card[facility] [address] [place], [address], 09/13/2023 09:28:49 07/27/20 24 07/27/2024 x-ray imagi ng repor t Flor t Name: Kanu Hugo Unit #: [id number] Loc: DI Orderi ng Provid er: Dc Louis DO Accoun t #: [id number] Status : REG CLI Primar y Care Provid er: Danna Jordan LINECASTING MACHINE KEYBOARD OPERATOR Date of Exam: 07/08 10/30 Sex: M [...] Vascul ar calcif icatio n is noted assembler sandal parts iorly in the poplit eal artery . [...] the addres s above. Thank- you. INTERFACE [facility] [address], [place], [address] 07/27/2024 18:10:30 Result Notes None recorded. Problems Name Problem SNOMED Code Status Onset Date Resolution Date Notes Provider Name and Address Organization Details Recorded Time Gastroes ophageal reflux disease without esophagi tis 626289817 Active 2022 Problem Code: K21.9; Problem Code Type: ICD-10; Not Available [facility] 4 05:35:57 Glaucoma 43171261 Active 2022 Problem Code: H40.9; Problem Code Type: ICD-10; Not Available [facility] 4 05:35:57 Hyperlip idemia 78924020 Active 2022 Problem Code: E78.5; Problem Code Type: ICD-10; Not Available [facility] 4 05:35:57 [facility] 33268490 Active 2022 Problem Code: I10; Problem Code Type: ICD-10; Not Available [facility] 4 05:35:57 Pain of left hip joint 99564955726 9100 Active 2022 Problem Code: M25.552; Problem Code Type: ICD-10; Not Available [facility] 4 05:35:57 Idiopath ic osteoart hritis 051874916 Active 2022 Problem Code: M16.12; Problem Code Type: ICD-10; Not Available [facility] 4 05:35:57 Inguinal hernia 313739101 Active 2022 Problem Code: K40.90; Problem Code Type: ICD-10; Not Available [facility] 4 05:35:57 Heart murmur 85082451 Active 2022 Problem Code: R01.1; Problem Code Type: ICD-10; Not Available [facility] 4 05:35:57 Dyspnea 076073482 Active 2022 Problem Code: R06.09; Problem Code Type: ICD-10; Not Available [facility] 4 05:35:57 Chest pain 81067561 Active 2022 Problem Code: R07.89; Problem Code Type: ICD-10; Not Available [facility] 4 05:35:57 Melanocy tic nevus 201190415 Active 2022 Problem Code: D22.9; Problem Code Type: ICD-10; Not Available [facility] 4 05:35:57 Aortic stenosis , non-rheu matic 961185667 Active 2022 Problem Code: I35.0; Problem Code Type: ICD-10; Not Available [facility] 4 05:35:58 Aortic stenosis , non-rheu matic 457747381 Completed 202208/14/2023 Problem Code: I35.0; Problem Code Type: ICD-10; Not Available [facility] 4 05:35:58 Indigest ion 854266762 Active 2023 GLORIA CAMP LPN null, [facility] 4 08:48:57 Coronary artery bypass grafts x 3 Active 2023 Kelly Duran RN null, [facility] 4 10:30:01 At increase d risk of atrial fibrilla tion 025807528 Active [address], [place], [address] , [facility] 4 13:52:01 Anemia 620231683 Active [address], [place], [address] , [facility] 4 13:54:39 Problem Notes None recorded. Procedures Surgical History Date Name Laterality Status Provider Name and Address Organization Details Recorded Time coronary artery bypass graft completed Hudson Reeder MA [facility] 03/04/2024 14:54:09 Imaging Results Imaging Date Name Status LastModified by Organization Details LastModified Time 12/05/2022 trans-thoracic echocardiogram (TTE) (PROC) completed [address] Xray [address] , [place], [address], 09/13/2023 09:29:52 06/01/2022 XR, hip, unilateral [place] [address] Information not available 09/13/2023 09:29:19 12/06/2019 US, echocardiogram completed [address]- Cardiology [address] [place] [address] [place], [address], 09/13/2023 09:28:49 07/27/2024 x-ray imaging report completed INTERFACE [address] [place], [address] 07/27/2024 18:10:30 Procedure Notes None recorded. Medical [...] es. Take 1 hr prior. Started by [facility]. Not Available Not Available Not Available doxycycli [...] BY MOUTH DAILY 02/24 completed stopped by [facility] Not Available Not Available Not Available brimonidi [...] hours by oral route as needed. active [facility] Not Available Not Available No t Available Aspirin Childrens 81 mg chewable tablet Take 1 tablet by mouth once a day active Not Available Not Available No t Available lisinopri l 5 mg tablet TAKE 1 TABLET BY MOUTH EVERY DAY 02/24 completed stopped by [facility] Not Available Not Available Not Available mupirocin [...] day by oral route. active started by [facility] Not Available Not Available Not Available dorzolami de 2 % (PF) eye drops 1 drop both eyes bid 12/17 completed Not Available Not Available Not Available Vitals Date Recorded Body weight Body mass index (BMI) Body height Heart rate Systolic blood pressure Diastolic blood pressure Provider Name and Address Organization Details Last Updated DateTime 3 26118.7 8 g 23.7 kg/m2 167.64 cm 64 /min 110 mm[Hg] 60 mm[Hg] GLORIA CAMP LPN [facility] 3 08:48:49 Date Recorded Body height Body mass index (BMI) Body weight Heart rate Systolic blood pressure Diastolic blood pressure Provider Name and Address Organization Details Last Updated DateTime 4 167.64 cm 24.6 kg/m2 22749.4 4 g 60 /min 112 mm[Hg] 80 mm[Hg] GLORIA CAMP LPN [facility] 4 08:38:13 Date Recorded Body height Body mass index (BMI) Body weight Heart rate Oxygen saturation Oxygen saturation in Arterial blood by Pulse oximetry Systolic blood pressure Diastolic blood pressure Provider Name and Address Organization Details Last Updated DateTime 4 167.64 cm 22.6 kg/m2 44983.6 5 g 63 /min 99 % 99 % 102 mm[Hg] 54 mm[Hg] Hudson Reeder MA [facility] 4 10:27:28 Social History Question Answer Notes LastModified by Organizat ion Details LastModified Time Tobacco Smoking Status Former Smoker Hudson Reeder MA null, [place] - [facility]. 03/06/2024 10:24:50 Do You Have An Advance Directive? Yes Registered 08/15/23 Updated 01/12/24 Information not available 01/15/2024 When Did You Quit Smoking? 11-15years sincelastc igarette [email or web address] Information not available 03/06/2024 Do You Have A Medical Power Of Rn Security? Yes Received 08/30/23, Scanned. Copies Sent To [facility] And Patient 09/02/23. Information not available 09/02/2023 What Was The Date Of Your Most Recent Tobacco Screening? 03/06/2024 [email or web address] Information not available 03/06/2024 What Is Your Current Pack Years? 30ormorepa ckyears [email or web address] Information not available 03/06/2024 How Much Tobacco Do You Smoke? 1 PPD [email or web address] Information not available 03/06/2024 How Many Years Have You Smoked Tobacco? 40 [email or web address] Information not available 03/06/2024 Do You Or Have You Ever Used Any Other Forms Of Tobacco Or Nicotine? No [email or web address] Information not available 03/06/2024 Sex: Male Functional [...] history recorded. Immunizations Vaccine Type Date Status Note Provider Christian arellano and Address Organization Details Recorded Time Tdap 3 completed Not Available [facility] 10/18/2023 05:30:17 Td(adult) unspecified formulation 3 completed Not Available [facility] 10/18/2023 05:30:17 COVID-19, mRNA, LNP-S, PF, 100 mcg/0.5mL dose or 50 mcg/0.25mL dose 1 completed Not Available [facility] 10/18/2023 05:30:18 COVID-19, mRNA, LNP-S, PF, 100 mcg/0.5mL dose or 50 mcg/0.25mL dose 1 completed Not Available [facility] 10/18/2023 05:30:18 COVID-19, mRNA, LNP-S, PF, 100 mcg/0.5mL dose or 50 mcg/0.25mL dose 1 completed Not Available [facility] 10/18/2023 05:30:18 influenza, unspecified formulation 1 completed Not Available [facility] 10/18/2023 05:30:18 influenza, unspecified formulation 2 completed Not Available [facility] 10/18/2023 05:30:18 influenza, unspecified formulation 0 completed Not Available [facility] 10/18/2023 05:30:18 influenza, unspecified formulation 9 completed Not Available [facility] 10/18/2023 05:30:18 influenza, unspecified formulation 8 completed Not Available [facility] 10/18/2023 05:30:18 Past Encounters Encounter ID Performer Location Encounter Start Date Encounter Closed Date Diagnosis/Indication Diagnosis SNOMED-CT Code Diagnosis ICD10 Code [id number] [address] [address] 09/19/2023 08:39:51 09/19/2023 09:17:42 Aortic valve stenosis 23090819 I35.0 Essential hypertension 56193729 I10 [id number] [address] [address] 12/18/2023 08:23:47 12/18/2023 09:29:09 Aortic stenosis, non-rheumatic 647599998 I35.0 Essential hypertension 56503840 I10 Nonulcer dyspepsia 60009 07 K30 Cramp in lower leg 84193 8009 R25.2 [id number] TATYANA LEDEZMA MD [address] [address] 03/06/2024 10:15:07 03/06/2024 11:14:28 Postoperative visit 180679834 Z48.89 Aortic rosa m nosis, non-rheumatic 278527125 I35.0 Stented co ronary artery 839343341 Z95.5 At [facility] risk of atrial fibrillation 139940743 Z91.89 Anemia 967831439 D64.9 Health Concerns Section Related Observation LastModified by Organization Detai ls LastModified Time None Recorded Concern Status LastModified by Organization Details LastModified Time None Recorded Advance Directives Directive Y: Registered 08/15/23Updated 01/12/24 Payers Encounter Date Sequence Insurance Name Policy Number Policy Alicia Covered Member ID Alicia Member ID Guarantor Name 12/18/2023 1 [facility] [id number] Karlos C Patenaude [id number] Karlos C Patenaude 03/06/2024 1 [employer] [id number] Karlos C Patenaude [id number] Karlos C Patenaude Notes Date Note Type Note Provider Name and Address Organization Details Recorded Time 09/19/2023 text/html 63-year-old man here for follow-up hypertension, severe aortic stenosis.,He works full-time at [employer]. He lives at home with his dog. He has not heard from [facility] cardiology? referred mid-August.He did decrease his lisinopril [...] trivial to mild aortic insufficiency. Aparna lizarraga [facility]. 09/19/2023 13:31:38 12/18/2023 text/html 63-year-old man here for follow-up hypertension, severe aortic stenosis.,He works full-time at [employer]. He lives at home with his dog. [...] repair a number of years ago at [facility], it is starting to cause some discomfort. Reports leg cramps at nighttime intermittently, improves when he has a Gatorade during the daytime and Ovaltine in his coffee. Aparna lizarraga, [facility], [facility]. 12/18/2023 11:43:00 03/06/2024 text/html Karlos is here today for a postop evaluation TATYANA LEDEZMA MD [address] [place], [place], [address], [facility], [facility]. 03/08/2024 13:57:34
--- OUTSIDE RECORDS SUMMARY | 2024-09-17 10:06 | XMS_ITS | Encounter Summary ---
Author Organization [facility] [place] [address] Care Team Providers Care Safety Physician Name Role Phone Vanessa Christian APRN Primary Care Provider [phone] Encounter Details Date Type Department Care Team (Late st Contact Info) Description 10/21/2023 Abstract Cardiology at [address] [place] [id number] Adam Mayes RN Social History Tobacco Use [...] on filedocumented in this encounter Care Teams Safety Physician Relationship Specialty Start Date End Date Vanessa Christian APRN PCP - General Family Medicine 10/21/23 05/26/24 documented as of this encounter
--- OUTSIDE RECORDS SUMMARY | 2024-09-17 10:06 | XMS_ITS | Encounter Summary ---
Author [place] [address] Care Team Providers Care Residential Specialist Name Role Phone Victor M Lafleur MD Primary Care Provider [phone] Reason for Visit * Reason Onset Date Comments Referral 09/20/2023 Encounter Details Date Type Department Care Team (Late st Contact Info) Description 09/20/2023 Telephone Cardiology at [address] [address] Karen Billy, traffic law attorney Social History Tobacco Use Types Packs/Day Years [...] on filedocumented in this encounter Care Teams Residential Specialist Relationship Specialty Start Date End Date Victor M Lafleur MD PCP - General 10/02/13 10/20/23 documented as of this encounter
--- OUTSIDE RECORDS SUMMARY | 2024-09-17 10:06 | XMS_ITS | Encounter Summary ---
Author Organization [facility] [place] [address] Care Team Providers Care Groundsman Name Role Phone Vanessa Christian APRN Primary Care Provider [phone] Encounter Details Date Type Department Care Team (Late st Contact Info) Description 01/10/2024 Orders Only Central [place] [id number] Lawson Napoles PA [facility] [place] [address] Screening for cardiovascular condition; Aortic valve stenosis, [...] unspecified documented in this encounter Care Teams Groundsman Relationship Specialty Start Date End Date Vanessa Christian APRN PCP - General Family Medicine 10/21/23 05/26/24 documented as of this encounter
--- OUTSIDE RECORDS SUMMARY | 2024-09-17 10:06 | XMS_ITS | Encounter Summary ---
Author Organization [place] [address] Care Team Providers Care It Operations Analyst Name Role Phone Vanessa Christian APRN Primary Care Provider [phone] Encounter Details Date Type Department Care Team [...] on filedocumented in this encounter Care Teams It Operations Analyst Relationship Specialty Start Date End Date Vanessa Chirstian APRN PCP - General Family Medicine 10/21/23 05/26/24 documented as of this encounter
--- OUTSIDE RECORDS SUMMARY | 2024-09-17 10:06 | XMS_ITS | Encounter Summary ---
[facility] Organization [facility] [place] [address] Care Team Providers Care Viscose Cellar Charge Hand Name Role Phone Vanessa Christian Lane DOTSON Primary Care Provider [phone] Encounter Details Date Type Department Care Team (Latest Contact Info) Description 01/09/2024 3:00 PM EDT Laboratory Appointment [place] [phone] Nonrheumatic aortic valve stenosis Social History Tobacco Use Types Packs/Day Years Used Date Smoking Tobacco: Former Cigarettes Smokeless Tobacco: Never Comments:Quit 15 + years ago Alcohol Use Standard Drinks/Week Comments Yes 0 (1 standard drink = 0.6 oz pur e alcohol) rare [facility] Inpatient Questions Answer Date Recorded [...] stenosis TYPE AND SCREEN, SDP (FUTURE SURGERY, [facility] ONLY) Routine 01/09/2024 2:58 [...] Recheck Status (01/09/2024 2:58 PM EDT) Pathologist [facility] ABORH Recheck Order Order Placed [facility] ABORH Type Recheck Completed [facility] Blood 01/09/2024 2:58 PM EDT 01/09/2024 3:08 PM EDT Narrative Resulting Agency Comment Spec In Lab Zak Farmer MD BLOOD BANK LAB ORDE ASH [facility] [place] [address] * Differential, Automated (01/09/2024 2:58 PM EDT) Neutrophil % 70.5 % [facility] Neutrophil Absolute 4.34 1.70 - 6.10 x10(3)/[facility] Lymph % 18.9 % [facility] Lymphocytes Abs 1.2 0.9 - 3.2 x10(3)/[facility]ORATORY Monocyte % 8.0 % [facility] Monocyte Abs 0.5 0.3 - 0.9 x10(3)/[facility]OR[facility]ORY Eos % 1.6 % [place] [...] HEMATOLOGY ORDERABL ES [facility] [place] [address] * Hemogram (01/09/2024 2:58 PM EDT) White [...] RDW Standard Deviation 39.2 36.0 - 45.0 [facility] RDW coefficient of variation 12.6 11.4 - 13.8 % [facility] Mean Platelet Volume 9.5 7.6 - 12.9 [facility]OR[facility]ORY NRBC% auto 0.0 % [facility] NRBC Absolute 0.000 0.000 - 0.000 x10(3)/[facility]ORATORY Blood 01/09/2024 2:58 PM EDT 01/09/2024 3:03 PM EDT Narrative Resulting Agency Comment Spec In Lab Zak Farmer MD HEMATOLOGY ORDERABL ES [facility] [place] [address] * Basic Metabolic Panel (non-fasting) (01/09/2024 2:58 [...] MD CHEMISTRY ORDERABLE S Performing Organization Address [facility] Co de Phone Number [facility] [place] [address] * Hepatic Function Panel (01/09/2024 2:58 PM [...] MD CHEMISTRY ORDERABLE S Performing Organization Address [facility] Co de Phone Number [facility] [place] [address] * Prothrombin Time (01/09/2024 2:58 PM EDT) [...] MD HEMATOLOGY ORDERABL ES Performing Organization Address City/[facility]/ZIP Co de Phone Number [facility] [place] [address] * Type and Screen Future Surgery, [facility] ONLY) (01/09/2024 2:58 PM EDT) ABORH Type O NEGATIVE [facility] Patient BB History Not Found [facility] Expires at [id number] on: 02-20-2024 [facility] Ab Screen Interp Negative [facility] Blood 01/09/2024 2:58 PM EDT 01/09/2024 2:58 PM EDT Narrative Resulting Agency Comment Spec In Lab Zak Farmer MD BLOOD BANK LAB ORDE RABLES [facility] [place] [address] documented in this encounter Visit Diagnoses Diagnosis Nonrheumatic aortic valve stenosis Aortic valve disorders documented in this encounter Care Teams Viscose Cellar Charge Hand Relationship Specialty Start Date End Date Vanessa Christian APRN PCP - General Family Medicine 1/15/24 8/20/24 documented as of this encounter
--- OUTSIDE RECORDS SUMMARY | 2024-09-17 10:06 | XMS_ITS | Encounter Summary ---
Author Organization [facility] Address [facility] [place] [address] Care Team Providers Care Utility Technician Name Role Phone Vanessa Christian JACK PRIZER Primary Care Provider [phone] Reason for Referral * Diagnostic Test (Routine) - Closed Specialty Diagnoses / Procedures Referred By Contac t Referred To Contact Radiology Diagnoses Nonrheumatic aortic valve stenosis Procedures CT Chest wo Contrast (Generic) Louisa Reid PA [facility] [place] [address] [facility] [place] [address] Referral ID Status Reason Start Date Expiration Date V isits Requested Visits Authorized [id number] Closed Specialty Service Requested 01/10/2024 07/11/2025 1 1 Encounter Details Date Type Department Care Team (Late st Contact Info) Description 01/09/2024 Orders [place] [address] Zak Farmer MD [facility] [place] [address] Nonrheumatic aortic valve stenosis Social History Tobacco [...] wo Contrast (Generic) (02/03/2024 7:44 AM EDT) quitchen WORKSTATION ID [id number] RAD Anatomical Region Laterality Modality Chest Computed [...] who have questions please contact the health women's health care nurse practitioner that requested your imaging first. ? Electronically signed by: Rogerio Wright MD, [facility] ([phone]), at 02/03/2024 10:00 AM Narrative 02/03/2024 10:00 [...] nodule along the minor fissure (series 302 [id number]) and a 8 mm right lower lobe [...] patients who have questions please contactthe health women's health care nurse practitioner that requested your imaging first. Electronically signed by: Rogerio Wright MD, [facility]([phone]), at 02/03/2024 10:00 AM Zak Farmer MD IMG CT ORDERABLES documented in this encounter Visit Diagnoses Diagnosis Nonrheumatic aortic valve stenosis Aortic valve disorders Nonrheumatic aortic valve stenosis Aortic valve disorders documented in this encounter Care Teams Utility Technician Relationship Specialty Start Date End Date Vanessa Christian APRN PCP - General Family Medicine 10/21/23 05/26/24 documented as of this encounter
--- OUTSIDE RECORDS SUMMARY | 2024-09-17 10:06 | XMS_ITS | Encounter Summary ---
Author Organization [facility] [place] [address] Care Team Providers Care Financial Services Internship Name Role Phone Vanessa Christian APRN Primary Care Provider [phone] Encounter Details Date Type Department Care Team (Late st Contact Info) Description 10/21/2023 Abstract Cardiology at [address] [place] [phone] Adam Mayes RN Social History Tobacco Use [...] on filedocumented in this encounter Care Teams Financial Services Internship Relationship Specialty Start Date End Date Vanessa Christian APRN PCP - General Family Medicine 10/21/23 05/26/24 documented as of this encounter
--- OUTSIDE RECORDS SUMMARY | 2024-09-17 10:06 | XMS_ITS | Encounter Summary ---
Author Organization [facility] [place] [address] Care Team Providers Care Labor Relations Officer Name Role Phone Vanessa Christian APRN Primary Care Provider [phone] Encounter Details Date Type Department Care Team (Late st Contact Info) Description 12/26/2023 Notes Only Cardiology at [address] [place] [address] Neftali Ernandez MD [facility] [place] [address] Social History Tobacco Use Types Packs/Day Years [...] on filedocumented in this encounter Care Teams Labor Relations Officer Relationship Specialty Start Date End Date Vanessa Christian APRN PCP - General Family Medicine 10/21/23 05/26/24 documented as of this encounter
--- OUTSIDE RECORDS SUMMARY | 2024-09-17 10:06 | XMS_ITS | Encounter Summary ---
Author Organization [facility] [place] [address] Care Team Providers Care Small Animal Veterinarian Name Role Phone Vanessa Christian APRN Primary Care Provider [phone] Encounter Details Date Type Department Care Team [...] on filedocumented in this encounter Care Teams Small Animal Veterinarian Relationship Specialty Start Date End Date Vanessa Christian APRN PCP - General Family Medicine 10/21/23 05/26/24 documented as of this encounter
--- OUTSIDE RECORDS SUMMARY | 2024-09-17 10:06 | XMS_ITS | Encounter Summary ---
Author Organization [facility] Address [facility] Ivana linareseileen [place] [id number] Care Team Providers Care Cake Inspector Name Role Phone Vanessa Christian MAURI Primary Care Provider [phone] Reason for Referral * Consultation (Routine) - Closed Specialty Diagnoses / Procedures Referred By Contac t Referred To Contact Cardiac Surgery Diagnoses Nonrheumatic aortic valve stenosis significant - TAVR ( defers to Card Surg d/t age) Errol Loya MD [facility] [place] [address] Zak Farmer MD [facility] C[place]I[facility]ACIC [place] [address] Referral ID Status Reason Start Date Expiration Date V isits Requested Visits Authorized [id number] Closed Consult, Test & Treat 10/21/2023 10/20/2024 1 1 Reason for Visit * Reason Comments Chest Pain Shortness of Breath Aortic Stenosis Encounter Details Date Type Department Care Team (Late st Contact Info) Description 10/21/2023 1:20 PM EST Office Visit Cardiology at [address] [address] Errol Loya MD [facility] [place] [address] Nonrheumatic aortic valve stenosis Social History Tobacco [...] Diagnosis Aortic stenosis 12/2022 TTE ([facility]): VITA 0.8-0.9 cm2 (MG 28 mmHg, DOI 3.6 m/s, SVI 35 cc/m2). Trace regurgitation. Normal bi-v s/f, no other valve findings Gastroesophageal reflux Nevus of face Right shinto Hypertension HLD (hyperlipidemia) MEDICATIONS: Current Outpatient Medications [...] the meantime will refer to T at [facility] for further evaluation. Logistics and preliminary review [...] the meantime will refer to T at [facility] for further evaluation. Logistics and preliminary review [...] disorders documented in this encounter Care Teams Cake Inspector Relationship Specialty Start Date End Date Vanessa Christian APRN PCP - General Family Medicine 10/21/23 05/26/24 documented as of this encounter
--- OUTSIDE RECORDS SUMMARY | 2024-09-17 10:06 | XMS_ITS | Encounter Summary ---
Author Organization [facility] Address [facility] [place] [address] Care Team Providers Care Non Destructive Tester Name Role Phone Vanessa Christian MAURI Primary Care Provider [phone] Encounter Details Date Type Department Care Team (Latest Contact Info) Description 01/09/2024 3:02 PM EDT - 01/09/2024 11:59 PM EDT Hospital Encounter XRay at [address] [place] [address] Zak Farmer MD [facility] [place] [address] Nonrheumatic aortic valve stenosis Discharge Disposition: Home Social History Tobacco Use Types Packs/Day Years Used Date Smoking Tobacco: Former Cigarettes Smokeless Tobacco: Never Comments:Quit 15 + years ago Alcohol Use Standard Drinks/Week Comments Yes 0 (1 standard drink = 0.6 oz pur e alcohol) rare [facility] Inpatient Questions Answer Date Recorded Prevent Contact [...] disorders documented in this encounter Care Teams Non Destructive Tester Relationship Specialty Start Date End Date Vanessa Christian APRN PCP - General Family Medicine 10/21/23 05/26/24 documented as of this encounter
--- OUTSIDE RECORDS SUMMARY | 2024-09-17 10:06 | XMS_ITS | Encounter Summary ---
Author Organization [facility] [address] Care Team Providers Care Senior Planner Name Role Phone Vanessa Christian Lane DOTSON Primary Care Provider [phone] Encounter Details Date Type Department Care Team (Late st Contact Info) Description 01/09/2024 2:30 PM EDT Clinical Support Same Day at [facility] [place] [phone] Social History Tobacco Use Types Packs/Day Years Used Date Smoking Tobacco: Former Cigarettes Smokeless Tobacco: Never Comments:Quit 15 + years ago Alcohol Use Standard Drinks/Week Comments Yes 0 (1 standard drink = 0.6 oz pur e alcohol) rare [facility] Inpatient Questions Answer Date Recorded Prevent [...] you tube link for a video about [facility] cardiac surgery. Instructed to bring the booklet [...] filedocumented in this encounter Care Teams Senior Planner Relationship Specialty Start Date End Date Vanessa Christian APRN PCP - General Family Medicine 10/21/23 05/26/24 documented as of this encounter
--- OUTSIDE RECORDS SUMMARY | 2024-09-22 10:05 | XMS_ITS | Encounter Summary ---
Author Organization [facility] Address [facility] [place] [address] Care Team Providers Care Stove Bottom Worker Name Role Phone Gino Vanessa Lane DOTSON Primary Care Provider Encounter Details Date Type Department Care Team (Late st Contact Info) Description 02/24/2024 Orders Only Cardiac Surgery [facility] [place] [phone] Trudi Lester APRN [facility] [place] [address] Social History Tobacco Use Types Packs/Day Years Used Date Smoking Tobacco: Former Cigarettes Smokeless Tobacco: Never Comments:Quit 15 + years ago Alcohol Use Standard Drinks/Week Comments Yes 0 (1 standard drink = 0.6 oz pur e alcohol) rare [facility] Utilities Answer Date Recorded In the past 12 months has e [employer], gas, oil, or water [employer] threatened to shut off services in your [...] on filedocumented in this encounter Care Teams Stove Bottom Worker Relationship Specialty Start Date End Date Vansesa Christian APRN PCP - General Family Medicine 10/21/23 05/26/24 documented as of this encounter
--- OUTSIDE RECORDS SUMMARY | 2024-09-22 10:05 | XMS_ITS | Encounter Summary ---
Author Organization [facility] Address [facility] [place] [address] Care Team Providers Care Mule Rider Name Role Phone Vanessa Christian MAURI Primary Care Provider [phone] Encounter Details Date Type Department Care Team [...] on filedocumented in this encounter Care Teams Mule Rider Relationship Specialty Start Date End Date Vanessa Christian APRN PCP - General Family Medicine 10/21/23 05/26/24 documented as of this encounter
--- OUTSIDE RECORDS SUMMARY | 2024-09-22 10:05 | XMS_ITS | Encounter Summary ---
Author Organization [facility] Address [address] [place] [address] Care Team Providers Care Project Control Officer Name Role Phone Filidayna Vanessa Dayna MONCADA Primary Care Provider [phone] Encounter Details Date Type Department Care Team (Late st Contact Info) Description 10/24/2023 Lab Requisition [facility] Pathology & Laboratory Medicine - [address] [address] Oscar Nichole MD [address] [place] [id number] Factitial dermatitis Social History Tobacco Use Types [...] options, if applicable. 10/28/2023 11:24 EST [facility] Final Diagnosis A. SKIN OF CONFUCIANIST, LEFT, SHAVE BIOPSY: - Seborrheic keratosis, pigmented. 10/28/2023 11:24 EST [facility] Attestation By the signature below, the attending physician certifies that they have 1) personally conducted a gross and/or microscopic examination of the described specimen(s), and/or personally interpreted the results of laboratory testing of the described specimen(s), and 2) personally rendered or confirmed the above diagnosis. 10/28/2023 11:24 [facility] at [address] Microscopic Description The stratum corneum is thickened by compact and basketweave orthokeratosis with formation of horn pseudocysts. The epidermis is acanthotic with formation of broad and anastomosing trabeculae. The trabeculae are composed of basaloid keratinocytes with round uniform nuclei. The keratinocytes have a variable amount of melanin pigment. 10/28/2023 11:24 [facility] Clinical History Pigmented 2 cm patch; clinical diagnosis code: L98.1 10/28/2023 11:24 [facility] Gross Description A. Received in formalin labelled with proper patient identification (initials P, A) and left gnosticism is a shave biopsy of an irregular [...] A3. Nora Anderson 10/25/2023 8:47 10/28/2023 11:24 [facility] Performing Lab [facility] 10/28/2023 11:24 [facility] Scanned Images 10/28/2023 11:24 [facility] Tissue SPECIMEN FROM SKIN / Unknown 10/24/2023 14:30 EST 10/24/2023 22:04 EST us Oscar Nichole MD PATHOLOGY ORDERABLES Final Resul t [facility] [address] [place] [address] documented in this encounter Visit Diagnoses Diagnosis Factitial dermatitis Dermatitis factitia (artefacta) documented in this encounter Care Teams Project Control Officer Relationship Specialty Start Date End Date Vanessa Christian NP [address] [place] [address] PCP - General Family Medicine - Primary Care 10/07/23 documented as of this encounter
--- OUTSIDE RECORDS SUMMARY | 2024-09-22 10:05 | XMS_ITS | Referral Summary ---
Author Organization [facility] Address [address] [place] [address] Care Team Providers Care Public Health Policy Analyst Name Role Phone Vanessa Christian Lane MONCADA Primary Care Provider [phone] Social History Tobacco Use Types Packs/Day Years Used Date Smoking Tobacco: Never Assessed Sex and Gender Information Value Date Recorded Sex Assigned at Not on file Legal Sex Male 22:02 EST Gender Identity Not on file Sexual Orientation Not on file Plan of Treatment Not on file Insurance [facility] Care Teams Public Health Policy Analyst Relationship Specialty Start Date End Date Vanessa Christian, ANTWAN [address] [place] [phone] PCP - General Family Medicine - Primary Care 10/07/23
--- OUTSIDE RECORDS SUMMARY | 2024-09-22 10:05 | XMS_ITS | Encounter Summary ---
Author Organization [facility] Address [facility] [place] [address] Care Team Providers Care Charging Operator Name Role Phone Vanessa Christian MAURI Primary Care Provider [phone] Encounter Details Date Type Department Care Team (Latest Contact Info) Description 03/12/2024 1:30 PM EDT - 03/12/2024 11:59 PM EDT Hospital Encounter XRay at [address] [place] [address] Coronary artery disease, unspecified vessel or lesion type, unspecified whether angina present, unspecified whether sw[place]ish or transplanted heart Discharge Disposition: Home Social History Tobacco Use Types Packs/Day Years Used Date Smoking Tobacco: Former Cigarettes Smokeless Tobacco: Never Comments:Quit 15 + years ago Alcohol Use Standard Drinks/Week Comments Yes 0 (1 standard drink = 0.6 oz pur e alcohol) rare [facility] Utilities Answer Date Recorded In the past 12 months has e [employer], gas, oil, or water [employer] threatened to shut off services in your [...] No 02/18/2024 Housing Stability Vital Sign Answer Amnfred e Recorded Unable to Pay for Housing [...] type, unspecified whether angina present, unspecified whether swinomish or transplanted heart documented in this encounter Results * XR Chest PA & Lateral (Generic) (03/12/2024 1:42 PM EDT) WORKSTATION ID [id number] RAD Anatomical Region Laterality Modality Chest N/A [...] ? 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 Electronically signed by: Augie Sanchez MD, [facility]([phone]), at 03/13/2024 8:28 AM Zak Farmer MD IMG DX ORDERABLES documented in this encounter Visit Diagnoses Diagnosis Coronary artery disease, unspecified vessel or lesion type, unspecified whether angina present, unspecified whether swinomish or transplanted heart documented in this encounter Care Teams Charging Operator Relationship Specialty Start Date End Date Vanessa Christian APRN PCP - General Family Medicine 10/21/23 05/26/24 documented as of this encounter
--- OUTSIDE RECORDS SUMMARY | 2024-09-22 10:05 | XMS_ITS | Clinical Summary ---
Author Organization [facility] Address [address] [place] [address] Care Team Providers Care Senior Planning Manager Name Role Phone Filidayna Vanessa Sherman NP Primary Care Provider [phone] Social History Tobacco Use Types Packs/Day Years [...] 75+ series) 2034 Insurance [employer] Care Teams Senior Planning Manager Relationship Specialty Start Date End Date Vanessa Christian, ANTWAN [address] [place] [phone] PCP - General Family Medicine - Primary Care 10/07/23
--- OUTSIDE RECORDS SUMMARY | 2024-09-22 10:05 | XMS_ITS | Encounter Summary ---
Author Organization [facility] Address [facility] [place] [address] Care Team Providers Care Professor Of Radiology Name Role Phone Vanessa Christian MAURI Primary Care Provider [phone] Encounter Details Date Type Department Care Team [...] in this encounter Care Teams Professor Of Radiology Relationship Specialty Start Date End Date Vanessa Christian APRN PCP - General Family Medicine 10/21/23 05/26/24 documented as of this encounter
--- OUTSIDE RECORDS SUMMARY | 2024-09-22 10:05 | XMS_ITS | Encounter Summary ---
Author Organization [facility] Address [facility] [place] [address] Care Team Providers Care Furnace Cleaner Name Role Phone Vanessa Christian Lane DOTSON Primary Care Provider [phone] Reason for Visit * Reason Comments Coronary Artery Disease Aortic Stenosis Encounter Details Date Type Department Care Team (Latest Contact Info) Description 05/27/2024 11:00 AM EDT Office Visit Cardiology at [address] [phone] Neftali Ernandez MD [facility] [place] [address] ASCVD (arteriosclerotic cardiovascular disease); Nonrheumatic aortic valve stenosis Social History Tobacco Use Types Packs/Day Years Used Date Smoking Tobacco: Former Cigarettes Smokeless Tobacco: Never Comments:Quit 15 + years ago Alcohol Use Standard Drinks/Week Comments Yes 0 (1 standard drink = 0.6 oz pur e alcohol) rare [facility] Utilities Answer Date Recorded In the past 12 months has e [employer], gas, oil, or water [employer] threatened to shut off services in your [...] disorders documented in this encounter Care Teams Furnace Cleaner Relationship Specialty Start Date End Date Vanessa Christian, MAURI [address] [place] [address] PCP - General Family Medicine 05/27/24 documented as of this encounter
--- OUTSIDE RECORDS SUMMARY | 2024-09-22 10:05 | XMS_ITS | Encounter Summary ---
Author Organization [facility] Address [facility] [place] [address] Care Team Providers Care Tube Drawer Name Role Phone Vanessa Christian MAURI Primary Care Provider [phone] Encounter Details Date Type Department Care Team [...] on filedocumented in this encounter Care Teams Tube Drawer Relationship Specialty Start Date End Date Vanessa Christian APRN [address] [place] [address] PCP - General Family Medicine 05/27/24 documented as of this encounter
--- OUTSIDE RECORDS SUMMARY | 2024-09-22 10:05 | XMS_ITS | Clinical Summary ---
Author Organization [facility] Address [facility] [place] [address] Care Team Providers Care Image Scientist Name Role Phone Vanessa Christian Lane DOTSON Primary Care Provider [phone] Allergies No known active allergies Medications Medication [...] the meantime will refer to SHT at [facility] for further evaluation. Logistics and preliminary review of TONY were reviewed with patient. - Refer to SHT Hypertension 08/14/2023 Resolved Problems Problem Noted Date Diagnosed Date Resolved Date Nevus of face 09/26/2023 05/27/2024 Overview (09/26/2023): Right church Chest pressure 08/14/2023 10/21/2023 SILVA (dyspnea on exertion) 08/14/2023 HLD (hyperlipidemia) 08/14/2023 024 Social History Tobacco Use Types Packs/Day Years Used Date Smoking Tobacco: Former Cigarettes Smokeless Tobacco: Never Comments:Quit 15 + years ago Alcohol Use Standard Drinks/Week Comments Yes 0 (1 standard drink = 0.6 oz pur e alcohol) rare [facility] Utilities Answer Date Recorded In [...] PCV) 2024 Medical Devices Implanted Type Area Trial Examiner Device Identifier Shelf Expiration Date Model / Serial / Lot Cable,Cut,Edg ,Blnt,Ss,3tpr ([id number]) - [id number] Implanted:Qty : 1 on 02/17/2024 by Zak Farmer MD at [facility] IMPLANTS Midline: Chest [employer] - [id number] 09/02/2028 [id number] / / [id number] Valve Coronary Aortic 23mm Tissue Trnscath [employer] Inspiris ([id number]) (Autoreq) - [id number] Implanted:Qty : 1 on 02/17/2024 by Zak Farmer MD at [facility] IMPLANTS Heart [employer] - TSAI LI 09/15/2027 [id number] 23MM / [id number] / Advance Directives * Attempt Cardiopulmonary Resuscitation [...] Status decision made by: Patient Care Teams Image Scientist Relationship Specialty Start Date End Date Vanessa Christian, MAURI [address] [place] [address] PCP - General Family Medicine 05/27/24
--- OUTSIDE RECORDS SUMMARY | 2024-09-22 10:05 | XMS_ITS | Encounter Summary ---
Author Organization [facility] Address [facility] [place] [address] Care Team Providers Care Development Technical Lead Name Role Phone Vanessa Christian GENERATING STATION MECHANIC Primary Care Provider [phone] Encounter Details Date Type Department Care Team (Late st Contact Info) Description 03/12/2024 2:40 PM EDT Office [place] [id number] Zak Farmer MD [facility] [place] [address] Coronary artery disease, unspecified vessel or lesion type, unspecified whether angina present, unspecified whether duck[place] or transplanted heart Social History Tobacco Use Types Packs/Day Years Used Date Smoking Tobacco: Former Cigarettes Smokeless Tobacco: Never Comments:Quit 15 + years ago Alcohol Use Standard Drinks/Week Comments Yes 0 (1 standard drink = 0.6 oz pur e alcohol) rare [facility] Utilities Answer Date Recorded In the past 12 months has e [employer], gas, oil, or water [employer] threatened to shut off services in your [...] 2:40 PM EDT To: MD Vanessa Coles, GENERATING STATION MECHANIC Re; Karlos Santa ( 1960) We had [...] office. Best personal regards, Zak Farmer MD [phone] documented in this encounter Plan of Treatment Not on file documented as of this encounter Procedures Procedure Name Priority Date/Time Associated Diagnosis Comments EKG 12-LEAD Routine 03/12/2024 2:35 PM EDT Coronary artery disease, unspecified vessel or lesion type, unspecified whether angina present, unspecified whether [place] or transplanted heart documented in this encounter Results * EKG 12 Lead (03/12/2024 2:35 PM EDT) Ventricular rate 59 BPM MUSE SYSTEM Atrial Rate 59 BPM MUSE SYSTEM P-R Interval 190 ms MUSE SYSTEM QRS Duration 92 ms MUSE SYSTEM Q-T Interval 406 ms MUSE SYSTEM QTC Calculated (Bezet) 401 ms MUSE SYSTEM Calculated P [place] -12 degrees MUSE SYSTEM Calculated R [place] 24 degrees MUSE SYSTEM Calculated T [place] 74 degrees MUSE SYSTEM INTERPRETATION Sinus bradycardia T wave abnormality, consider anterior ischemia Abnormal ECG When compared with ECG of 17-FEB-2024 13:24, [place] interval has decreased T wave inversion now evident in Anterior leads Confirmed by Paul Guzman ([id number]) on 03/15/2024 8:36:23 AM MUSE SYSTEM 03/12/2024 2:35 PM EDT 03/15/2024 8:36 AM EDT Zak Farmer MD ECG ORDERABLES [employer] documented in this encounter Visit Diagnoses Diagnosis Coronary artery disease, unspecified vessel or lesion type, unspecified whether angina present, unspecified whether [place] or transplanted heart documented in this encounter Care Teams Development Technical Lead Relationship Specialty Start Date End Date Vanessa Christian, MAURI PCP - General Family Medicine 10/21/23 05/26/24 documented as of this encounter
--- OUTSIDE RECORDS SUMMARY | 2024-09-22 10:05 | XMS_ITS | Encounter Summary ---
[place] [address] Care Team Providers Care Senior Hris Analyst Name Role Phone Aparna Jordan MAURI Primary Care Provider [phone] Reason for Referral * Diagnostic Test (Routine) - New Request Specialty Diagnoses / Procedures Referred By Contac t Referred To Contact Cardiology Diagnoses S/P AVR Procedures Echocardiogram Transthoracic Neftali Menon PA [facility] [place] [address] [facility] [place] [address] Referral ID Status Reason Start Date Expiration Date Visits Requested Visits Authorized [id number] New Request Specialty Service Requested 02/24/2024 02/23/2025 1 1 * Consultation (Routine) - Closed Specialty Diagnoses / Procedures Referred By Contac t Referred To Contact Cardiology Diagnoses S/P AVR Hyader Graham MD [facility] [place] [address] Cardiac Rehab, [facility] [address] [place] [address] [place] [address] Referral ID Status Reason Start Date Expiration Date V isits Requested Visits Authorized [id number] Closed Consult, Test & Treat 02/24/2024 08/22/2024 36 36 * Home Health Care (Routine) - Closed Specialty Diagnoses / Procedures Referred By Sixto mendoza Referred To Contact Diagnoses S/P AVR Hayder Graham MD [facility] [place] [address] Referral ID Status Reason Start Date Expiration Date V isits Requested Visits Authorized [id number] Closed Consult, Test & Treat 02/24/2024 08/22/2024 [...] MD [facility] [place] [address] [facility] Referral ID Status Reason Start Date Expiration Date Visits Re quested Visits Authorized [id number] 1 1 Encounter Details Date Type Department Care Team (Latest Contact Info) Description 02/17/2024 5:43 AM EDT - 02/24/2024 11:23 AM EDT Hospital Encounter Heart and Vascular Unit Level 4 [place] [address] Hayder Graham MD [facility] [place] [address] S/P AVR (Primary Dx); Aortic valve stenosis, etiology of cardiac valve disease unspecified Discharge Disposition: Home with VNA Social History Tobacco Use Types Packs/Day Years Used Date Smoking Tobacco: Former Cigarettes Smokeless Tobacco: Never Comments:Quit 15 + years ago Alcohol Use Standard Drinks/Week Comments Yes 0 (1 standard drink = 0.6 oz pur e alcohol) rare [facility] Utilities Answer Date Recorded In the [...] Patient Age: 63 y.o. Birthdate: 1960 Language: Moldovan Race: White Ethnicity: Not nor Admit Date: 02/17/2024 Discharge Date: 02/24/24 Attending Physician: Hayder Graham MD Follow-up Recommendations for Providers: Please continue routine management of cardiovascular risk factors including blood pressure, lipids,glucose, etc. Please note any changes to medications. Patient to follow up with PCP, Aparna Jordan APRN, in 1-2 weeks. Patient to follow up with Dry Cleaning Checker, Neftali Ernandez MD , in 2 weeks. Patient to follow up with Cardiac Surgeon, Dr. Hayder Graham, with a chest x-ray, EKG, and Echo. Inpatient Provider Contact Information: [facility] Section of Cardiac Surgery [facility] [phone] FAX [phone] Discharge Diagnoses (Hospital Problems) Primary Diagnoses: /CAD [...] Hypertension 08/14/2023 Nevus of face 09/26/2023 Right denominational Past Surgical History: Procedure Laterality Date PRO CABG, ARTERIAL, SINGLE N/A 02/17/2024 @CABG, USING ARTERIAL GRAFT;SINGLE ARTERIAL GRAFT (WRVU 33.75) performed by Hayder Garham MD at [facility] MAIN OR PRO CABG, ARTERY-VEIN, TWO N/A 02/17/2024 @CABG, TWO VENOUS GRAFTS & ARTERIAL GRAFT (WRVU 7.93) performed by Hayder Graham MD at [facility] MAIN OR PRO ENDOSCOPY W/VIDEO-ASST VEIN HARVEST, CABG Left 02/17/2024 ENDOSCOPIC HARVEST VEIN(S) FOR CABG (WRVU 0.31) performed by Hayder Graham MD at [facility] MAIN OR PRO REPLACEMENT PROSTHETIC AORTIC VALVE OPEN W CARDIOPULMONARY BYPASS HOMOGRF/STENT N/A 02/17/2024 @REPLACE AORTIC VALVE, OPEN, W\CPB, W\PROSTHETIC VALVE (WRVU 41.32) performed by Hayder Graham MD at [facility] MAIN OR Prior To Admission [...] insufficiency. He has glaucoma. He used to yuback until about 15 years ago. He has undergone prior herniorrhaphy. 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 Major Procedures/Operations: 02/17/24 s/p avr/cabgx3 CABG x 3 JOSE->LAD SVG->dRCA SVG->OM1 EVH from LLE AVR with a 23 mm Inspiris Bioprosthesis Hospital Course: Karlos Garcia was admitted to [facility] on 02/17/2024 via the Same Day [...] Graham and/or the Cardiac Surgery Physician General Warehouse Associate Team may be reached at . Antibiotic [...] Please refer to the card with the [employer] Guidelines for more information. You [...] Dr. Hayder Graham. You may use a [place] Track or treadmill but avoid any pulling [...] should resume a low fat, low cholesterol, [employer] Diet. Driving: No driving until [...] while being managed by your PCP and/or Dry Cleaning Checker. For future medication refills, please refer to your PCP and/or Dry Cleaning Checker after your discharge from our service. Thank you REMOVE CHEST TUBE SUTURES ON OR AFTER 03/02/24 Home oxygen therapy: N/A Follow up appointments: You should follow up with your PCP, Aparna Jordan APRN, in 1-2 weeks. Our office will schedule an appointment with your Dry Cleaning Checker, Neftali Ernandez MD , in 2 weeks. You have an appointment with your Cardiac Surgeon, Dr. Hayder Graham, 4 weeks with a chest x-ray, EKG, and Echo before your appointment. Cardiac Rehabilitation: Karlos Garcia was seen regarding participation in the outpatient Phase 2Cardiac Rehabilitation at [facility]. The patient agrees to a referral to this program. The referral will be sent at discharge and the patient should be contacted by the Program within 1- 2 weeks from discharge. Future Appointments and Orders Future Orders Complete By Expires Echocardiogram Transthoracic [78851 CPT(R)] 03/26/2024 09/25/2024 Process Instructions: Scheduling Instructions: Questions: Where will study be performed?: [facility] Does the patient have Congenital Heart Disease?: Does patient require sedation?: Sedation rationale: XR Chest PA & Lateral (Generic) [42796 36625 Custom] 03/26/2024 09/25/2024 Process Instructions: Scheduling Instructions: Questions: Portable exam?: Reason for exam and clinical history: s/p avr/cabg Clinical information / jerome questions for radiologist: Stat read required?: Date of injury if applicable: Requested Time: Where will study be performed?: [facility] Radiology Referral to Cardiac Rehab [[id number] Custom] As directed Process Instructions: If no progress note charted, please enter Clinical details in comments. Scheduling Instructions: Questions: My question or request is: s/p AVR/CABG. Cardiac rehab at [facility]. Referral to Home Health [REF34 Custom] As directed Process Instructions: If no progress note charted, please enter Clinical details in comments. Scheduling Instructions: Comments: Please evaluate Karlos Garcia for admission to Home Health. [address] Phone Number: Date of : 1960 Inpatient DOCUMENTATION FOR VNA SERVICES (INCLUDING THOSE PATIENTS WITH MEDICARE COVERAGE REQUIRING HOME VNA SERVICES AND/OR HOSPICE SERVICES) PATIENT'S LOCATION: Karlos Garcia [address] [employer] [phone] Asphalt Engineer's Name: self/family In discussion with the attending physician, it is certified that this patient is under their care and that they, or a Nurse Practitioner, or Physician General Warehouse Associate who is working directly with them, hada [...] for services as follows: HOME HEALTH AGENCY: [facility]. [address] [place] [address] RN orders: Cardiopulmonary assessment, incisional assessment, assess [...] issues please call the Cardiology Office at [phone] FOR MEDICARE ONLY: (please delete this section [...] care: As above. Signed: NEFTALI MENON PA-C [facility] Section of Cardiac Surgery [facility] [address] FAX [phone] Date: 02/24/2024 CC: Aparna Jordan, MAURI Jordan, Aparna Sherman APRN [address] [place] [address] documented in this encounter Discharge Instructions * [...] Graham and/or the Cardiac Surgery Physician General Warehouse Associate Team may be reached at . Antibiotic [...] Please refer to the card with the [employer] Heart [employer] Guidelines for more information. You [...] Dr. Hayder Graham. You may use a [place] Track or treadmill but avoid any pulling [...] should resume a low fat, low cholesterol, [employer] Diet. Driving: No driving until [...] while being managed by your PCP and/or Dry Cleaning Checker. For future medication refills, please refer to your PCP and/or Dry Cleaning Checker after your discharge from our service. Thank you REMOVE CHEST TUBE SUTURES ON OR AFTER 03/02/24 Home oxygen therapy: N/A Follow up appointments: You should follow up with your PCP, Aparna Jordan APRN, in 1-2 weeks. Our office will schedule an appointment with your Dry Cleaning Checker, Neftali Ernandez MD , in 2 weeks. You have an appointment with your Cardiac Surgeon, Dr. Hayder Graham, 4 weeks with a chest x-ray, EKG, and Echo before your appointment. Cardiac Rehabilitation: Karlos Garcia was seen regarding participation in the outpatient Phase 2Cardiac Rehabilitation at [facility]. The patient agrees to a [...] 0600 and on the weekends please page [phone]. * Eric Barahona PA - 02/23/2024 9:27 [...] 0600 and on the weekends please page [phone]. * Tiffanie Owens PTA - 02/22/2024 2:48 [...] d/c for 10 days. 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 * Kelley Hinson, SOCIAL SERVICES ANALYST - 02/21/2024 10:15 AM EDT Physical [...] d/c for 10 days. 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 * Kelley Hinson PTA - 02/20/2024 3:32 PM EDT 02/20/24 3719 Evaluation & Treatment Document Type contact Total Minutes, Physical Therapy 0 Comment, Session Not Performed Checked in w/ pt this PM for ongoing PT services, pt politely declined, stating he had been dealing w/ nausea all day, made plan to see him tomorrow morning, will f/u at that time Kelley Hinson PTA Pager: [phone] Physical Therapy Inpatient Rehab Department * Louisa [...] 0600 and on the weekends please page [phone]. * Maris Benavides, PT - 02/19/2024 11:22 [...] d/c for 10 days. 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 Precautions/Special Considerations: [...] outlined inthis evaluation. MARIS BENAVIDES, PT Pager: [phone] Physical Therapy Inpatient Rehabilitation Department Time IN / OUT: 8252-2605 Total Time: 38 (eval) minutes; * Atnonio Allen PA - 02/19/2024 9:16 AM EDT [...] 0600 and on the weekends please page [phone]. * Minnie Begum PA - 02/18/2024 8:25 [...] 0600 and on the weekends please page [phone]. * Kim Ha RCP - 02/17/2024 2:25 [...] plan since last visit. Hayder Graham MD [phone] Source Note - Hayder Graham MD - [...] insufficiency. He has glaucoma. He used to yuback until about 15 years ago. He has [...] given written informed consent. Hayder Graham MD [phone] * Hayder Graham MD - 02/17/2024 7:00 [...] given written informed consent. Hayder Graham MD [phone] documented in this encounter Miscellaneous Notes * [...] for follow-up Home Health & Hospice, [address] [place] [address] Cardiac Rehab, [facility] [address] [facility] [place] [address] Transportation: family or friend will provide Functional status prior to admission: Independent Home Environment: Others in the home: alone. Current Living Arrangements: home/apartment/condo. Accessibility Concerns:a few steps to enter 1 floor home. Current Functional Ability: Assistive Person and Equipment DME used at home: none DME Needed at Discharge: N/A Patient is insured through: Primary Insurance: [employer] Payor: [facility] / Plan: [facility] PPO / Product Type: *No [...] pain managed with scheduled Tylenol. Worked with [employer]. Ambulated in the roque multiple times during [...] anticipated Patient is insured through: Primary Insurance: [employer] Payor: [facility] / Plan: [facility] PPO / Product Type: *No Product type* / Secondary Insurance: N/A Last Physical Therapy Recommendation: home with home health (Str coming to stay for a week or two upon d/c) with to be determined (owns rolling walker, shower seat) Plan for discharge is: Home w/ Services Outpatient Agency/Support Group Needs: Homecare agency Home Health Services: Physical Therapy, Registered Nurse Agency Referrals: [facility] [address] [address] Transportation: family or friend will provide Barriers to discharge: Discharge planning Plan going forward: Service Care Management will continue to follow and assist with discharge planning and coordination of care as indicated. Anticipated Date of Discharge: 02/22/2024 Rhett Bell RN RN/CM - Cellphone: [phone] Pager: [phone] Covering Service RN/CM * Plan of Care [...] the outpatient Phase 2 Cardiac Rehabilitation at [facility]. The patient agrees to a [...] Hypertension 08/14/2023 Nevus of face 09/26/2023 Right denominational Hospitalizations Within the Past 30 Days: no previous admission in last 30 days Current Decision-Making Capacity: Self If AD's have not been completed the following surrogate would be surrogate decision maker per [place] surrogate decision making law. (Only good for 180 days) Any patient receiving care in [place] must abide by [place] law. The hierarchy [...] In the past 12 months has the [employer], gas, oil, or water [employer] threatened to shut off services in your [...] [address] [facility] [address] Physical address: [address] [facility], [address] Social & Family Supports: All names listed [...] none noted Health/Prescription Coverage: Primary Insurance: [facility] Payor: [facility] / Plan: [facility] PPO / Product Type: *No Product type* / Secondary Insurance: N/A ; Prescription Coverage: Yes Preferred Pharmacy: [id number] AT [facility] & [address] [address] Status: Patient is a : No Primary Care Provider confirmed: Aparna Jordan, DESIGN ASSISTANT [phone] Patient/Caregiver Goals of Treatment: dc to home Potential Needs for Transition of Care: home health care Agency Referrals: I have met with the patient to: discuss discharge planning needs. provide the [facility], Office of Care Management letter from the [employer] pertaining to rehab referrals. provide a letter describing our affiliations within the [facility] and educate about their right to choose where referrals are sent. provide a list of Home Health Agencies / Durable Medical Equipment vendors which serve their preferred geographic area. provided patient with [facility] Star Quality Rating handout. They have requested referrals to: [facility]. [address] [place] [address] Note routed to a Quality Control Checker who will communicate referrals to facilities [...] Reina Greene RN CM, BSN, CMGT- Ext [phone] * Plan of Care - Binta Trinidad [...] Operative Note Patient Name: Karlos Garcia DOB: [id number] MR#: [id number] Case Date: 02/17/2024 Surgeon: Surgeon(s) and Role: * Hayder Graham MD - Primary * Neftali Menon PA - Physician General Warehouse Associate Preoperative diagnosis: CAD Postoperative diagnosis: CAD, intraoperative [...] Operative Note Patient Name: Karlos Garcia : [id number] MR#: [id number] Case Date: 02/17/2024 Surgeon: Surgeons and Role: * Hayder Graham MD - Primary * Neftali Menon PA - Physician General Warehouse Associate Preoperative diagnosis: CAD Postoperative diagnosis: CAD, intraoperative [...] Aortic Valve Open W Cardiopulmonary Bypass Homogrf/Stent (23313) Yes 02/17/2024 7:28 AM EDT CAD Cabg, Artery-Vein, Two (46056) Yes 02/17/2024 7:28 AM EDT CAD Cabg, Arterial, Single (38652) Yes 02/17/2024 7:28 AM EDT CAD Endoscopy W/Video-Asst Vein [place], Cabg (05030) Yes 02/17/2024 7:28 AM EDT CAD POCT [...] MD CHEMISTRY ORDERABLE S [facility] [place] [address] * (ABNORMAL) Basic Metabolic Panel (non-fasting) (02/23/2024 [...] Carpio MD CHEMISTRY ORDERABLES [facility] [place] [address] * Potassium (02/22/2024 4:30 AM EDT) [facility] Signature Potassium 3.5 3.5 - 5.0 mmol/L [facility] [...] Lab Hayder Grhaam MD CHEMISTRY ORDERABLE S [facility] [place] [address] * (ABNORMAL) Basic Metabolic Panel (non-fasting) (02/21/2024 [...] In Lab Rmoeo Carpio MD CHEMISTRY ORDERABLES Performing Organization Address City/[facility]/ZIP Co de Phone Number [facility] [place] [address] * Lactate, whole blood, send to lab ([facility] (02/21/2024 9:45 AM EDT) [facility] Lactate WB 2.0 0.5 - 2.2 mmol/L [facility] Blood 02/21/2024 9:45 AM EDT 02/21/2024 9:52 AM EDT Narrative Resulting Agency Comment Spec In Lab Hayder Graham MD CHEMISTRY ORDERABLE S Performing Organization Address [facility] Co de Phone Number [facility] [place] [address] * (ABNORMAL) Hepatic Function Panel (02/21/2024 9:45 AM EDT) [facility] Protein, Total 5.7(L) 6.1 - 8.0 [...] Performing Organization Address City/[facility]/ZIP Co de Phone Number [facility] [place] [address] * Lipase (02/21/2024 9:45 AM EDT) [facility] Lipase 56 0 - 60 unit/L [facility] Blood 02/21/2024 9:45 AM EDT 02/21/2024 9:52 AM EDT Narrative Resulting Agency Comment Spec In Lab Hayder Graham MD CHEMISTRY ORDERABLE S Performing Organization Address [facility] Co de Phone Number [facility] [place] [address] * Amylase (02/21/2024 9:45 AM EDT) Amylase 69 28 - 100 unit/L [facility] Blood 02/21/2024 9:45 AM EDT 02/21/2024 9:52 AM EDT Narrative Resulting Agency Comment Spec In Lab Hayder Graham MD CHEMISTRY ORDERABLE S Performing Organization Address [facility] de Phone Number [facility] [place] [address] * Potassium (02/21/2024 3:08 AM EDT) [facility] Potassium 3.8 3.5 - 5.0 mmol/L [facility] [...] CHEMISTRY ORDERABLE S Performing Organization Address [facility] Co de Phone Number [facility] [place] [address] * XR Chest PA & Lateral (Generic) (02/20/2024 10:19 AM EDT) WORKSTATION ID [id number] DH RAD Anatomical Region Laterality Modality Chest [...] architect that requested your imaging first. ? Narrative 02/20/2024 1:11 PM EDT EXAMINATION: XR CHEST PA AND LATERAL (GENERIC) CLINICAL HISTORY: s/p AVR/CABGx3 TECHNIQUE: PA and lateral views of the chest COMPARISON: 02/17/2024 FINDINGS: Support devices: Interval removal of Fletcher-Kaila catheter, endotracheal tube and mediastinal chest tubes The cardiac silhouette is stable status post median sternotomy, CABG and aortic valve replacement. There are small pleural effusions. No pneumothorax. Procedure Note Rogerio Cruz MD - 02/20/2024 EXAMINATION: XR CHEST PA AND LATERAL (GENERIC) CLINICAL HISTORY: s/p AVR/CABGx3 TECHNIQUE: PA and lateral views of the chest COMPARISON: 02/17/2024 FINDINGS: Support devices: Interval removal of Fletcher-Kaila catheter, endotracheal tubeand mediastinal chest tubes The [...] healthcare architect that requested your imaging first. Hayder Graham MD IMG DX ORDERABLES * Scan, Peripheral Blood (02/20/2024 4:23 AM EDT) Pathologist [facility] Plat estimate Decreased [facility] RBC Morphology Normal [facility] Blood 02/20/2024 4:23 AM EDT 02/20/2024 4:42 AM EDT Narrative Resulting Agency Comment Spec In Lab Minnie FRENCH HEMATOLOGY CECILIO ALEMAN [facility] [place] [address] * (ABNORMAL) Differential, Automated (02/20/2024 4:23 AM EDT) [facility] Neutrophil % 81.7 % [facility] Neutrophil Absolute 10.37(H) 1.70 - 6.10 x10(3)/mc L [facility] Lymph % 7.4 % [facility] Lymphocytes Abs 0.9 0.9 - 3.2 x10(3)/mc L [facility] Monocyte % 9.7 % [facility] Monocyte Abs 1.2(H) 0.3 - 0.9 x10(3)/mc L [facility] Eos % 0.1 % [facility] Eosinophils Abs 0.0 0.0 - 0.4 x10(3)/mc L [facility] Basophil % 0.2 % [facility] [...] FRENCH HEMATOLOGY CECILIO ALEMAN [facility] [place] [address] * (ABNORMAL) Hemogram (02/20/2024 4:23 AM EDT) [...] FRENCH HEMATOLOGY CECILIO ALEMAN [facility] [place] [address] * (ABNORMAL) Basic Metabolic Panel (non-fasting) (02/20/2024 [...] CHEMISTRY ORDERABLE S Performing Organization Address [facility] Co de Phone Number [facility] [place] [address] * Potassium (02/19/2024 3:57 AM EDT) Potassium [...] CHEMISTRY ORDERABLE S Performing Organization Address [facility] Co de Phone Number [facility] [place] [address] * POCT Glucose (02/18/2024 8:24 AM EDT) Glucose, POC 157 65 - 199 mg/dL [facility] Comment: Supplemental ranges: <140 mg/dL before meals <180 mg/dL all other times of the day Blood 02/18/2024 8:24 AM EDT 02/18/2024 8:24 AM EDT Hayder Graham MD POINT OF CARE TEST ORDERABLES [facility] [place] [address] * Scan, Peripheral Blood (02/18/2024 1:40 AM EDT) Pathologist [facility] Plat estimate Decreased [facility] RBC Morphology Normal [facility] Blood 02/18/2024 1:40 AM EDT 02/18/2024 1:56 AM EDT Narrative Resulting Agency Comment Spec In Lab Neftali FRENCH HEMATOLOGY ORDER OLE Performing Organization Address City/[facility]/ZIP Co de Phone Number [facility] [place] [address] * (ABNORMAL) Differential, Automated (02/18/2024 1:40 AM EDT) [facility] Neutrophil % 87.1 % [facility] Neutrophil Absolute 15.03(H) 1.70 - 6.10 x10(3)/mc L [facility] Lymph % 3.0 % [facility] Lymphocytes Abs 0.5(L) 0.9 - 3.2 x10(3)/mc L [facility] Monocyte % 9.1 % [facility] Monocyte Abs 1.6(H) 0.3 - 0.9 x10(3)/mc L [facility] Eos % 0.0 % [facility] Eosinophils Abs 0.0 0.0 - 0.4 x10(3)/mc L [facility] Basophil % 0.2 % [place] [...] FRENCH HEMATOLOGY ORDER OLE [facility] [place] [address] * (ABNORMAL) Hemogram (02/18/2024 1:40 AM EDT) White Blood Cell 17.2(H) 4.0 - 9.5 x10(3)/ L [facility] Red Blood Cell 4.71 4.58 - 5.54 x10(6)/ L [facility] Hemoglobin 13.7 13.7 [...] [facility] NRBC% auto 0.0 % [facility] NRBC Absolute 0.000 0.000 - 0.000 x10(3)/ L [facility] Blood 02/18/2024 1:40 AM EDT 02/18/2024 1:56 AM EDT Narrative Resulting Agency Comment Spec In Lab Neftali FRENCH HEMATOLOGY ORDER OLE [facility] [place] [address] * (ABNORMAL) Basic Metabolic Panel (non-fasting) (02/18/2024 [...] Performing Organization Address City/[facility]/ZIP Co de Phone Number [facility] [place] [address] * (ABNORMAL) Troponin (02/18/2024 1:40 AM EDT) [...] - [place] [facility] Test Catalog Reference: Fourth [place] Definition of Myocardial Infarction. Journal of the [employer] 2018;72:7433-8307 Blood 02/18/2024 1:40 AM EDT 02/18/2024 1:56 AM EDT Narrative Resulting Agency Comment Spec In Lab Hayder Graham MD CHEMISTRY ORDERABLE S [facility] [place] [address] * POCT Glucose (02/17/2024 8:13 PM EDT) Glucose, POC 142 65 - 199 mg/dL [facility] Comment: Supplemental ranges: <140 mg/dL before meals <180 mg/dL all other times of the day Blood 02/17/2024 8:13 PM EDT 02/17/2024 8:13 PM EDT Hayder Graham MD POINT OF CARE TEST ORDERABLES Performing Organization Address [facility] Co de Phone Number [facility] [place] [address] * POCT Glucose (02/17/2024 5:42 PM EDT) Glucose, POC 160 65 - 199 mg/dL [facility] Comment: Supplemental ranges: <140 mg/dL before meals <180 mg/dL all other times of the day Blood 02/17/2024 5:42 PM EDT 02/17/2024 5:42 PM EDT Hayder Graham MD POINT OF CARE TEST ORDERABLES Performing Organization Address [facility]/ZIP Co de Phone Number [facility] [place] [address] * Hemoglobin (02/17/2024 5:42 PM EDT) Hemoglobin 13.7 13.7 - 16.5 g/dL [facility] Blood 02/17/2024 5:42 PM EDT 02/17/2024 6:10 PM EDT Narrative Resulting Agency Comment Spec In Lab Hayder Graham MD HEMATOLOGY ORDERABL ES [facility] [place] [address] * Potassium (02/17/2024 5:42 PM EDT) Potassium [...] MD CHEMISTRY ORDERABLE S Performing Organization Address City/State/[facility] Co de Phone Number [facility] [place] [address] * (ABNORMAL) BLOOD GAS 2 ARTERIAL (02/17/2024 [...] [facility] FIO2 Art 40 % [facility] PF Ratio Art 195 [facility] Blood 02/17/2024 4:18 PM EDT 02/17/2024 4:18 PM EDT Hayder Graham MD POINT OF CARE TEST ORDERABLES [facility] [place] [address] * XR Chest One View (02/17/2024 1:44 PM EDT) in3Depth WORKSTATION ID [id number] DH RAD Anatomical Region Laterality Modality Chest N/A Digital Radiogra phy Impressions 02/17/2024 2:12 PM EDT 1. ??No definite pleural fluid collection or pneumothorax. 2. ??Right IJ Fletcher-Kaila catheter tip terminates in a descending branch [...] architect that requested your imaging first. ? Narrative 02/17/2024 2:12 PM EDT EXAMINATION: XR CHEST ONE VIEW CLINICAL HISTORY: s/p avr/cabg eval effusions TECHNIQUE: 1 view of the chest COMPARISON: Chest x-ray 01/09/2024, chest CT 02/03/2024 FINDINGS: ET tube tip terminates 5.2 cm above the carlos. Right IJ Fletcher-Kaila catheter tip terminates in a descending branch [...] 5.2 cm above the carlos. Right IJ Fletcher-Ganzcatheter tip terminates in a descending branch of [...] fluid collection or pneumothorax. 2. Right IJ Fletcher-Kaila catheter tip terminates in a descending branch [...] healthcare architect that requested your imaging first. Hayder Graham [...] [facility] FIO2 Art 100 % [facility] PF Ratio Art 320 [facility] Blood 02/17/2024 1:31 PM EDT 02/17/2024 1:31 PM EDT Hayder Graham MD POINT OF CARE TEST ORDERABLES [facility] [place] [address] * (ABNORMAL) Coox2 (02/17/2024 1:21 PM EDT) [...] CARE TEST ORDERABLES [facility] [place] [address] * (ABNORMAL) BLOOD GAS 2 ARTERIAL (02/17/2024 [...] CARE TEST ORDERABLES Performing Organization Address [facility]/ZIP Co de Phone Number [facility] [place] [address] * (ABNORMAL) Fibrinogen (02/17/2024 12:10 PM EDT) [...] MD HEMATOLOGY ORDERABLE S Performing Organization Address City/[facility]/ZIP Co de Phone Number [facility] [place] [address] * (ABNORMAL) Thrombin time (02/17/2024 12:10 PM [...] HEMATOLOGY ORDERABLE S Performing Organization Address [facility] Co de Phone Number [facility] [place] [address] * APTT (02/17/2024 12:10 PM EDT) Partial [...] HEMATOLOGY ORDERABLE S Performing Organization Address [facility] Co de Phone Number [facility] [place] [address] * (ABNORMAL) Prothrombin Time (02/17/2024 12:10 PM [...] MD HEMATOLOGY ORDERABLE S [facility] [place] [address] * (ABNORMAL) Hemogram (02/17/2024 12:10 PM EDT) [...] [facility] NRBC% auto 0.0 % [facility] NRBC Absolute 0.000 0.000 - 0.000 x10(3)/mc L [facility] Blood 02/17/2024 12:1 0 PM EDT 02/17/2024 12:19 PM EDT Narrative Resulting Agency Comment Spec In Lab Tara York MD HEMATOLOGY ORDERABLE S [facility] [place] [address] * (ABNORMAL) BLOOD GAS 2 ARTERIAL (02/17/2024 [...] mmol/L [facility] Comment: Noted by director instrumentation. Please note: Patients with WBC >100,000 [...] OF CARE TEST ORDERABLES [facility] [place] [address] * (ABNORMAL) BLOOD GAS 2 ARTERIAL (02/17/2024 [...] mmol/L [facility] Comment: Noted by director instrumentation. Please note: Patients with WBC >100,000 [...] CARE TEST ORDERABLES Performing Organization Address [facility]/ZIP Co de Phone Number [facility] [place] [address] * (ABNORMAL) Hemoglobin and Hematocrit, blood (02/17/2024 [...] Performing Organization Address City/[facility]/[place] [address] * (ABNORMAL) Platelet count (02/17/2024 11:04 AM EDT) Platelet 106(L) 145 - 357 x10(3)/mc L [facility] Immature Plt % 1.6 0.0 - 7.4 % [facility] Comment: Limitation of the Immature Platelet Fraction (IPF)-May be less reliable when the platelet count is less than 86j622/uL due to statistical imprecision. The IPF value [...] in a decreased state of production. References: [employer] The Clinical Value of the Immature Platelet Fraction (IPF) in Cell Recovery Document Number [id number] 03/2011 [employer] The Role of the Immature Platelet Fraction (IPF) in the Differential Diagnosis of Thrombocytopenia, Document MKT-[id number] V002/15/14 Blood 02/17/2024 11:0 4 AM EDT 02/17/2024 11:12 AM EDT Narrative Resulting Agency Comment Spec In Lab Hayder Graham MD HEMATOLOGY ORDERABL ES Performing Organization Address City/State/[facility] Co de Phone Number [facility] [place] [address] * (ABNORMAL) Fibrinogen (02/17/2024 11:04 AM EDT) [...] MD HEMATOLOGY ORDERABL ES [facility] [place] [address] * (ABNORMAL) BLOOD GAS 2 ARTERIAL (02/17/2024 [...] OF CARE TEST ORDERABLES [facility] [place] [address] * (ABNORMAL) BLOOD GAS 2 ARTERIAL (02/17/2024 [...] OF CARE TEST ORDERABLES [facility] [place] [address] * Surgical Pathology Report (02/17/2024 10:01 AM EDT) Final Diagnosis [id number] ? Location: [facility]; [facility]; The signing pathologist has (i) examined the relevant preparation(s) for the specimen(s) and (ii) rendered or confirmed the diagnosis(es). . ?Surgical Pathology DIAGNOSIS Aortic valve leaflets, excision: Valve leaflets with myxoid degeneration, nodular fibrosis and dystrophic calcifications. Electronically signed by: ?Livier Montoya MD Verified: ??02/24/2024 13:49 ??Pathologist Performed at: ??-[facility] Dept. of Pathology, [place] [address] Tank Cooper: Job Breewr MD, FCAP, ??IA Certificate: [id number] SPECIMEN(S) SUBMITTED A - Aortic Valve Leaflets, [...] Sections Processing Blocks submitted for decalcification: A1. Wild Animal Caretaker sections in 1 cassette labeled A1. ??ajw 02/24/2024 1:49 PM EDT [facility] AORTIC STRUCTURE / Unknown 02/17/2024 10:01 AM EDT 02/17/2024 10:01 AM EDT Hayder Graham MD PATHOLOGY/CYTOLOGY ORDERABLES [facility] [place] [address] * Specimen to Pathology (02/17/2024 10:01 AM EDT) AP Specimen 02/17/2024 10:0 1 AM EDT 02/17/2024 10:01 AM EDT Narrative [facility] - 02/17/2024 10:01 AM EDT Specimen requisition ordered. ??Separate Pathology report to follow Hayder Graham MD PATHOLOGY/CYTOLOGY ORDERABLES Performing Organization Address City/[facility]/ZIP Co de Phone Number [facility] [place] [address] * (ABNORMAL) BLOOD GAS 2 ARTERIAL (02/17/2024 [...] OF CARE TEST ORDERABLES [facility] [place] [address] * (ABNORMAL) BLOOD GAS 2 VENOUS (02/17/2024 9:34 AM EDT) pH, Venous 7.22(Criti marquez) 7.32 - 7.42 [facility] Comment:Noted by director instrumentation. PCO2, Venous 43 41 - 51 mmHg [facility] Comment:Noted by director instrumentation. PO2, Venous 57(H) 25 - 40 mmHg [facility] Comment:Noted by director instrumentation. Bicarbonate, Venous 17.1 mmol/L [facility] Comment:Noted by director instrumentation. Base Excess, Venous -10.6 mmol/L [facility] Comment:Noted by director instrumentation. Hgb Blood Gas 11.2(L) 13.7 - 16.5 g/dL [facility] Comment:Noted by director instrumentation. Oxyhemoglobin, Venous 86.5 % [facility] Comment:Noted by director instrumentation. Carboxyhemoglob in, Venous 0.3 % [facility] Comment: Noted by director instrumentation. Nonsmokers: 0.5-1.5% COHB Smokers: Variable, but usually less than 10% Toxic: 20-30% COHB Lethal: Greater than 60% COHB Methemoglobin, Venous 0.0 <=1.5 % [facility] Comment:Noted by director instrumentation. Na Whole Blood 156(H) 135 - 145 mmol/L [facility] Comment:Noted by director instrumentation. K Whole Blood 5.5(H) 3.5 - 5.0 mmol/L [facility] Comment: Noted by director instrumentation. Please note: Patients with WBC >100,000 may have falsely elevated Potassium levels. Contact the Clinical Chemistry Laboratory if there are any questions. ICa Whole Blood 1.03(L) 1.15 - 1.33 mmol/L [facility] Comment: Noted by director instrumentation. Note: ??Total bilirubin higher than 20 mg/dL may lead to falsely low ionized calcium. CL Whole Blood 100 98 - 107 mmol/L [facility] Comment:Noted by director instrumentation. Gluc Whole Bld 132 65 - 199 mg/dL [facility] Comment: Noted by director instrumentation. Diabetes: >=200 mg/dL plus symptoms Lactate WB 1.0 0.5 - 2.2 mmol/L [facility] Comment:Noted by director instrumentation. Blood Gas Source Venous [facility] Blood 02/17/2024 9:34 AM EDT 02/17/2024 9:34 AM EDT Hayder Graham MD POINT OF CARE TEST ORDERABLES [facility] [place] [address] * (ABNORMAL) BLOOD GAS 2 ARTERIAL (02/17/2024 [...] CARE TEST ORDERABLES Performing Organization Address [facility] Co de Phone Number [facility] [place] [address] * POCT Glucose (02/17/2024 6:38 AM EDT) Glucose, POC 98 65 - 199 mg/dL [facility] Comment: Supplemental ranges: <140 mg/dL before meals <180 mg/dL all other times of the day Blood 02/17/2024 6:38 AM EDT 02/17/2024 6:38 AM EDT Hayder Graham MD POINT OF CARE TEST ORDERABLES Performing Organization Address [facility] de Phone Number [facility] [place] [address] * Transesophageal Echo/OR (02/17/2024 6:33 AM EDT) [...] [facility] [...] 6 hours upon arrival to Unit. Give GA if unable to take PO, Routine Given [...] dose on Sat02/17/24 at 1400, Until Discontinued, Winger teeth and / or gums. Scan the CHG vial in the [employer] Q-Care Oral Care Kit from floor stock. Ventilator-associated pneumonia prophylaxis For use in ICU/Critical care locations ONLY. Obtain kit from Floor Stock location. Scan CHG vial in the [employer] Q-Care Oral Care Kit, Routine Given 02/17/2024 [...] PHENYLephrine and/or vasopressin ineffective. Call pager # [phone] if initiated. Titrate to keep systolic blood [...] house supervisor for additional fluid orders: pager #[phone]. Rate/Dose Verify 02/18/2024 8:00 AM EDT 1 [...] Routine documented in this encounter Care Teams Senior Hris Analyst Relationship Specialty Start Date End Date Aparna Jordan APRN PCP - General Family Medicine 10/21/23 05/26/24 documented as of this encounter
[2024-09-22 10:06] VITALS: BP 107/53; PULSE 63
--- OUTSIDE RECORDS SUMMARY | 2024-09-22 10:06 | XMS_ITS | Encounter Summary ---
Author Organization [facility] Address [facility] [place] [address] Care Team Providers Care Diathermy Equipment Repairer Name Role Phone Vanessa Christian MAURI Primary Care Provider [phone] Encounter Details Date Type Department Care Team (Late st Contact Info) Description 02/14/2024 Orders [place] [id number] Zak Farmer MD [facility] [place] [address] Coronary artery disease, unspecified vessel or lesion type, unspecified whether angina present, unspecified whether robinson or transplanted heart (Primary Dx) Social History [...] (Bezet) 401 ms MUSE SYSTEM Calculated P Milton -12 degrees MUSE SYSTEM Calculated R Milton 24 degrees MUSE SYSTEM Calculated T Milton 74 degrees MUSE SYSTEM INTERPRETATION Sinus bradycardia T wave abnormality, consider anterior ischemia Abnormal ECG When compared with ECG of 17-FEB-2024 13:24, ID interval has decreased T wave inversion now evident in Anterior leads Confirmed by Paul Guzman ([id number]) on 03/15/2024 8:36:23 AM MUSE SYSTEM 03/12/2024 2:35 PM EDT 03/15/2024 8:36 AM EDT Zak Farmer MD ECG ORDERABLES MUSE SYSTEM * XR Chest PA & Lateral (Generic) (03/12/2024 1:42 PM EDT) Pathologist [facility] WORKSTATION ID [id number] [facility] Anatomical Region Laterality Modality Chest N/A [...] please contact the health child day care center worker that requested your imaging first. ? Electronically signed by: Augie Sanchez MD, [facility] ([phone]), at 03/13/2024 8:28 AM Narrative 03/13/2024 8:28 AM EDT EXAMINATION: XR CHEST PA AND LATERAL (GENERIC) CLINICAL HISTORY: s/p cabg eval effusions I25.10, Atherosclerotic heart disease of robinson coronary artery without angina pectoris TECHNIQUE: PA [...] eval effusions I25.10, Atherosclerotic heart disease of robinson coronary artery withoutangina pectoris TECHNIQUE: PA and [...] questions please contactthe health child day care center worker that requested your imaging first. Electronically signed by: Augie Sanchez MD, [facility]([phone]), at 03/13/2024 8:28 AM Zak Farmer MD IMG DX ORDERABLES documented in this encounter Visit Diagnoses Diagnosis Coronary artery disease, unspecified vessel or lesion type, unspecified whether angina present, unspecified whether robinson or transplanted heart- Primary Coronary artery disease, unspecified vessel or lesion type, unspecified whether angina present, unspecified whether robinson or transplanted heart documented in this encounter Care Teams Diathermy Equipment Repairer Relationship Specialty Start Date End Date Vanessa Christian APRN PCP - General Family Medicine 10/21/23 05/26/24 documented as of this encounter
--- OUTSIDE RECORDS SUMMARY | 2024-09-22 10:06 | XMS_ITS | Encounter Summary ---
[facility] [place] [address] Care Team Providers Care Ammonia Still Operator Name Role Phone Vanessa Christian Lane DOTSON Primary Care Provider [phone] Encounter Details Date Type Department Care Team (Latest Contact Info) Description 01/09/2024 3:00 PM EDT Laboratory [place] [phone] Nonrheumatic aortic valve stenosis Social History Tobacco [...] stenosis TYPE AND SCREEN, SDP (FUTURE SURGERY, [facility] SAME DAY PROGRAM ONLY) Routine 01/09/2024 2:58 [...] EDT) Pathologist [facility] ABORH Recheck Order Order Placed [facility] ABORH Type Recheck Completed [facility] Blood 01/09/2024 2:58 PM EDT 01/09/2024 3:08 PM EDT Narrative Resulting Agency Comment Spec In Lab Zak Farmer MD BLOOD BANK LAB ORDE ASH [facility] [place] [address] * Differential, Automated (01/09/2024 2:58 PM EDT) Neutrophil % 70.5 % [facility] Neutrophil Absolute 4.34 1.70 - 6.10 x10(3)/[facility] Lymph % 18.9 % [facility] Lymphocytes Abs 1.2 0.9 - 3.2 x10(3)/[facility] Monocyte % 8.0 % [facility] Monocyte Abs 0.5 0.3 - 0.9 x10(3)/[facility] Eos % 1.6 % [facility] Eosinophils Abs 0.1 0.0 - 0.4 x10(3)/[facility] Basophil % 0.5 % [facility] Baso Absolute 0.0 0.0 - 0.1 x10(3)/[facility]ORY Immature Gran % 0.50 % [facility] Comment: Immature granulocytes(IG's)percentage and absolute count will include metamyelocytes, myelocytes, and promyelocytes. Blood smears from CBCs yielding IG's will be scanned manually for concordance. If this scan disagrees with the automated IG or if promyelocytes are noted, a manual differential will be performed. Immature Gran Absolute 0.03 0.00 - 0.04 x10(3)/[facility] Blood 01/09/2024 2:58 PM EDT 01/09/2024 3:03 PM EDT Narrative Resulting Agency Comment Spec In Lab Zak Farmer MD HEMATOLOGY ORDERABL ES [facility] [place] [address] * Hemogram (01/09/2024 2:58 PM EDT) White Blood Cell 6.2 4.0 - 9.5 x10(3)/[facility] Red Blood Cell 5.53 4.58 - 5.54 x10(6)/[facility]ORY Hemoglobin 16.1 13.7 - 16.5 g/dL [facility] Hematocrit 46.9 40.5 - 48.5 % [facility] Mean Cell Volume 84.8 82.9 - 93.1 fL [facility] Mean Cell Hemoglobin 29.1 27.5 - 32.1 pg [facility] Mean Cell Hemoglobin Concentration 34.3 32.0 - 35.7 g/dL [facility] Platelet 187 145 - 357 x10(3)/[facility] LABORATORY RDW Standard Deviation 39.2 36.0 - 45.0 [facility]ATORY RDW coefficient of variation 12.6 11.4 - 13.8 % [facility] Mean Platelet Volume 9.5 7.6 - 12.9 [facility]ORATORY NRBC% auto 0.0 % [facility] NRBC Absolute 0.000 0.000 - 0.000 x10(3)/[facility] Blood 01/09/2024 2:58 PM EDT 01/09/2024 3:03 PM EDT Narrative Resulting Agency Comment Spec In Lab Zak Farmer MD HEMATOLOGY ORDERABL ES [facility] [place] [address] * Basic Metabolic Panel (non-fasting) (01/09/2024 2:58 [...] MD CHEMISTRY ORDERABLE S Performing Organization Address [facility] Co de Phone Number [facility] [place] [address] * Hepatic Function Panel (01/09/2024 2:58 PM [...] MD CHEMISTRY ORDERABLE S Performing Organization Address [facility] Co de Phone Number [facility] [place] [address] * Prothrombin Time (01/09/2024 2:58 PM EDT) [...] MD HEMATOLOGY ORDERABL ES Performing Organization Address City/[facility]/ZIP Co de Phone Number [facility] [place] [address] * Type and Screen Future Surgery, [facility] SAME DAY PROGRAM ONLY) (01/09/2024 2:58 PM [...] Farmer MD BLOOD BANK LAB ORDE RABLES [facility] [place] [address] documented in this encounter Visit Diagnoses Diagnosis Nonrheumatic aortic valve stenosis Aortic valve disorders documented in this encounter Care Teams Ammonia Still Operator Relationship Specialty Start Date End Date Vanessa Christian APRN PCP - General Family Medicine 1/15/24 8/20/24 documented as of this encounter
--- OUTSIDE RECORDS SUMMARY | 2024-09-22 10:06 | XMS_ITS | Encounter Summary ---
Author Organization [facility] Ivana [facility] [place] [address] Care Team Providers Care Axminster Rug Setter Name Role Phone Vanessa Christian MAURI Primary Care Provider [phone] Reason for Visit * Auth/Cert (Routine) Specialty [...] GRAFT (WRVU 7.93) Zak Farmer MD [facility] CARDIOTHORACIC [place] [address] [facility] Referral ID Status Reason Start Date Expiration Date Visits Re quested Visits Authorized [id number] 1 1 Encounter Details Date Type Department Care Team (Late st Contact Info) Description 02/17/2024 7:35 AM EDT Anesthesia Event Main Operating Room [facility] [place] [id number] Roman York MD [facility] ANESTHESIOLOGY [place] [address] Anesthesia Record Procedure Summary Procedure Name Responsible [...] by Sadiq Woo RN PIV 02/17/24; 0715; [id number]-[id number] catheter system; 18 gauge; cephalic vein (lateral [...] Roman York MD 02/17/24 1645 by Kim Wellington RCP Urethral Catheter 02/17/24; 0800; Surg suyapa [...] th e electric, gas, oil, or water [employer] threatened to shut off services in your [...] Summary Date: 02/17/24 Room / Location: [facility] OR [address] [place] [address] MAIN OR Anesthesia Start: 734 Anesthesia Stop: [...] include unfiled device data. Patient Location: [facility] Level of Consciousness: Sedated (Pharmacologic/Intentional) Pain [...] mg documented in this encounter Care Teams Axminster Rug Setter Relationship Specialty Start Date End Date Vanessa Christian APRN PCP - General Family Medicine 10/21/23 05/26/24 documented as of this encounter
--- OUTSIDE RECORDS SUMMARY | 2024-09-22 10:06 | XMS_ITS | Encounter Summary ---
[place] [address] Care Team Providers Care Saloon Keeper Name Role Phone Victor M Lafleur MD Primary Care Provider [phone] Reason for Visit * Reason Onset Date Comments Referral 09/20/2023 Encounter Details Date Type Department Care Team (Late st Contact Info) Description 09/20/2023 Telephone Cardiology at [address] [address] Karen Billy, textile pin worker Social History Tobacco Use Types Packs/Day [...] on filedocumented in this encounter Care Teams Saloon Keeper Relationship Specialty Start Date End Date Victor M Lafleur MD PCP - General 10/02/13 10/20/23 documented as of this encounter
--- OUTSIDE RECORDS SUMMARY | 2024-09-22 10:06 | XMS_ITS | Encounter Summary ---
Author Organization [facility] [place] [address] Care Team Providers Care Cell Support Operator Name Role Phone Vanessa Christian APRN Primary Care Provider [phone] Encounter Details Date Type Department Care Team [...] on filedocumented in this encounter Care Teams Cell Support Operator Relationship Specialty Start Date End Date Vanessa Christian APRN PCP - General Family Medicine 10/21/23 05/26/24 documented as of this encounter
--- OUTSIDE RECORDS SUMMARY | 2024-09-22 10:06 | XMS_ITS | Encounter Summary ---
Author Organization [facility] Address [facility] [place] [address] Care Team Providers Care Projection Printer Name Role Phone Vanessa Christian MAURI Primary Care Provider [phone] Reason for Visit * Consultation (Routine) - Closed Specialty Diagnoses / Procedures Referred By Contac t Referred To Contact Cardiac Surgery Diagnoses Nonrheumatic aortic valve stenosis significant - TAVR ( defers to Card Surg d/t age) Neftali Ernandez MD [facility] [place] [address] Zak Farmer MD [facility] [place] [address] Referral ID Status Reason Start Date Expiration Date V isits Requested Visits Authorized [id number] Closed Consult, Test & Treat 10/21/2023 10/20/2024 1 1 Encounter Details Date Type Department Care Team (Late st Contact Info) Description 01/09/2024 1:40 PM EDT Office Visit [place] [address] Zak Farmer MD [facility] [place] [address] Nonrheumatic aortic valve stenosis Social [...] office. Best personal regards, Zak Farmer MD [phone] In aggregate 55 minutes were spent evaluating [...] who have questions please contact the health assistant child care teacher that requested your imaging first. [...] patients who have questions please contactthe health assistant child care teacher that requested your imaging first. [...] CHEMISTRY ORDERABLE S [facility] [place] [address] * Hepatic Function Panel (01/09/2024 2:58 PM [...] MD CHEMISTRY ORDERABLE S Performing Organization Address [facility] Co de Phone Number [facility] [place] [address] * Prothrombin Time (01/09/2024 2:58 PM EDT) [...] MD HEMATOLOGY ORDERABL ES Performing Organization Address [facility] Co de Phone Number [facility] [place] [address] * Type and Screen Future Surgery, [facility] SAME DAY PROGRAM ONLY) (01/09/2024 2:58 PM EDT) ABORH Type O NEGATIVE [facility] Patient BB History Not Found [facility] Expires at [id number] on: 02-20-2024 [facility] Ab Screen Interp Negative [facility] Blood 01/09/2024 2:58 PM EDT 01/09/2024 2:58 PM EDT Narrative Resulting Agency Comment Spec In Lab Zak Farmer MD [facility] Performing Organization Address City/State/[facility] Co de Phone Number [facility] [place] [address] documented in this encounter Visit Diagnoses Diagnosis Nonrheumatic aortic valve stenosis Aortic valve disorders Nonrheumatic aortic valve stenosis Aortic valve disorders documented in this encounter Care Teams Projection Printer Relationship Specialty Start Date End Date Vanessa Christian, HOUSEKEEPING WORKER PCP - General Family Medicine 10/21/23 05/26/24 documented as of this encounter
--- OUTSIDE RECORDS SUMMARY | 2024-09-22 10:06 | XMS_ITS | Encounter Summary ---
Author Organization [facility] [place] [address] Care Team Providers Care Solid Glass Rod Dowel Machine Operator Name Role Phone Vanessa Christian APRN Primary Care Provider [phone] Encounter Details Date Type Department Care Team (Late st Contact Info) Description 01/10/2024 Orders Only [place] [phone] Lawson Napoles PA [facility] [place] [address] Screening for cardiovascular condition; Aortic valve stenosis, [...] unspecified documented in this encounter Care Teams Solid Glass Rod Dowel Machine Operator Relationship Specialty Start Date End Date Vanessa Christian APRN PCP - General Family Medicine 10/21/23 05/26/24 documented as of this encounter
--- OUTSIDE RECORDS SUMMARY | 2024-09-22 10:06 | XMS_ITS | Encounter Summary ---
Author Organization [facility] [place] [address] Care Team Providers Care Torpedoman'S Mate Name Role Phone Victor M Lafleur MD Primary Care Provider [phone] Encounter Details Date Type Department Care Team (Late st Contact Info) Description 09/26/2023 Abstract Cardiology at [address] [address] Karen Billy, RN Nonrheumatic aortic [...] face documented in this encounter Care Teams Torpedoman'S Mate Relationship Specialty Start Date End Date Victor M Lafleur MD PCP - General 10/02/13 10/20/23 documented as of this encounter
--- OUTSIDE RECORDS SUMMARY | 2024-09-22 10:06 | XMS_ITS | Encounter Summary ---
Author Organization [facility] Address [facility] [place] [address] Care Team Providers Care National Sales Manager Name Role Phone Vanessa Christian MAURI Primary Care Provider [phone] Encounter Details Date Type Department Care Team (Latest Contact Info) Description 01/09/2024 3:02 PM EDT - 01/09/2024 11:59 PM EDT Hospital Encounter XRay at [address] [place] [address] [facility] [place] [address] Nonrheumatic aortic valve stenosis Discharge Disposition: Home [...] who have questions please contact the health anesthesiologist and critical care that requested your imaging first. ? Electronically signed by: Toby Dave MD, [facility] ([phone]), at 01/09/2024 3:11 PM Narrative 01/09/2024 3:11 [...] patients who have questions please contactthe health anesthesiologist and critical care that requested your imaging first. Electronically signed by: Toby Dave MD, [facility]([phone]), at 01/09/2024 3:11 PM Zak Farmer MD IMG DX ORDERABLES documented in this encounter Visit Diagnoses Diagnosis Nonrheumatic aortic valve stenosis Aortic valve disorders documented in this encounter Care Teams National Sales Manager Relationship Specialty Start Date End Date Vanessa Christian APRN PCP - General Family Medicine 10/21/23 05/26/24 documented as of this encounter
--- OUTSIDE RECORDS SUMMARY | 2024-09-22 10:06 | XMS_ITS | Encounter Summary ---
Author [facility] [place] [address] Care Team Providers Care Credit Intern Name Role Phone Vanessa Christian APRN Primary Care Provider [phone] Encounter Details Date Type Department Care Team (Late st Contact Info) Description 10/21/2023 Abstract Cardiology at [address] [phone] Adam Mayes RN Social History Tobacco Use [...] filedocumented in this encounter Care Teams Credit Intern Relationship Specialty Start Date End Date Vanessa Christian APRN PCP - General Family Medicine 10/21/23 05/26/24 documented as of this encounter
--- OUTSIDE RECORDS SUMMARY | 2024-09-22 10:06 | XMS_ITS | Encounter Summary ---
[facility] [place] [address] Care Team Providers Care Patient Transition Specialist Name Role Phone Aparna Jordan MAURI Primary Care Provider [phone] Reason for Visit * Auth/Cert (Routine) Specialty [...] Hayder Graham MD [facility] [place] [address] [facility] Referral ID Status Reason Start Date Expiration Date Visits Re quested Visits Authorized [id number] 1 1 Encounter Details Date Type Department Care Team (Late st Contact Info) Description 02/17/2024 7:30 AM EDT - 02/17/2024 1:26 PM EDT [place] [id number] Hayder Graham MD [facility] [place] [address] ENDOSCOPIC HARVEST VEIN(S) FOR CABG (WRVU 0.31) [...] Patient Age: 63 y.o. Birthdate: 1960 Language: Tajik Race: White Ethnicity: Not nor Admit Date: 02/17/2024 Discharge Date: 02/24/24 Attending Physician: Hayder Graham MD Follow-up Recommendations for Providers: Please continue routine management of cardiovascular risk factors including blood pressure, lipids,glucose, etc. Please note any changes to medications. Patient to follow up with PCP, Aparna Jordan APRN, in 1-2 weeks. Patient to follow up with Steel Die Printer, Neftali Ernandez MD , in 2 weeks. Patient to follow up with Cardiac Surgeon, Dr. Hayder Graham, with a chest x-ray, EKG, and Echo. 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 Past Surgical History: Procedure Laterality Date PRO CABG, ARTERIAL, SINGLE N/A 02/17/2024 @CABG, USING ARTERIAL GRAFT;SINGLE ARTERIAL GRAFT (WRVU 33.75) performed by Hayder Graham MD at [facility] MAIN OR PRO CABG, ARTERY-VEIN, TWO N/A 02/17/2024 @CABG, TWO VENOUS GRAFTS & ARTERIAL GRAFT (WRVU 7.93) performed by Hayder Graham MD at [facility] MAIN OR PRO ENDOSCOPY W/VIDEO-ASST VEIN HARVEST, CABG Left 02/17/2024 ENDOSCOPIC HARVEST VEIN(S) FOR CABG (WRVU 0.31) performed by Hayder Graham MD at [facility] MAIN OR PRO REPLACEMENT PROSTHETIC AORTIC VALVE OPEN W CARDIOPULMONARY BYPASS HOMOGRF/STENT N/A 02/17/2024 @REPLACE AORTIC VALVE, OPEN, W\CPB, W\PROSTHETIC VALVE (WRVU 41.32) performed by Hayder Graham MD at [facility] MAIN OR Prior To Admission [...] insufficiency. He has glaucoma. He used to bacAula 7 until about 15 years ago. He has undergone prior herniorrhaphy. 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 Major Procedures/Operations: 02/17/24 s/p avr/cabgx3 CABG x 3 JOSE->LAD SVG->dRCA SVG->OM1 EVH from LLE AVR with a 23 mm Inspiris Bioprosthesis Hospital Course: Karlos Garcia was admitted to [facility] on 02/17/2024 via the Same Day [...] Hayder Graham and/or the Cardiac Surgery Physician Town Planner Team may be reached at . [...] Please refer to the card with the [place] Heart Association Guidelines for more information. You [...] Dr. Hayder Graham. You may use a Kronenwetter Track or treadmill but avoid any pulling [...] should resume a low fat, low cholesterol, [place] Heart Association Diet. Driving: No driving until [...] while being managed by your PCP and/or Steel Die Printer. For future medication refills, please refer to your PCP and/or Steel Die Printer after your discharge from our service. Thank you REMOVE CHEST TUBE SUTURES ON OR AFTER 03/02/24 Home oxygen therapy: N/A Follow up appointments: You should follow up with your PCP, Aparna Jordan APRN, in 1-2 weeks. Our office will schedule an appointment with your Steel Die Printer, Neftali Ernandez MD , in 2 weeks. [...] Future Orders Complete By Expires Echocardiogram Transthoracic [11892 CPT(R)] 03/26/2024 09/25/2024 Process Instructions: Scheduling Instructions: Questions: Where will study be performed?: [facility] Does the patient have Congenital Heart Disease?: Does patient require sedation?: Sedation rationale: XR Chest PA & Lateral (Generic) [88548 89523 Custom] 03/26/2024 09/25/2024 Process Instructions: Scheduling Instructions: Questions: Portable exam?: Reason for exam and clinical history: s/p avr/cabg Clinical information / jerome questions for radiologist: Stat read required?: Date of injury if applicable: Requested Time: Where will study be performed?: [facility] Radiology Referral to Cardiac Rehab [DYF687 Custom] As directed Process Instructions: If no [...] to Home Health. [address] Phone Number: Date of : 1960 Inpatient DOCUMENTATION FOR VNA SERVICES (INCLUDING THOSE PATIENTS WITH MEDICARE COVERAGE REQUIRING HOME VNA SERVICES AND/OR HOSPICE SERVICES) PATIENT'S LOCATION: Karlos Garcia [address] [place] [phone] Chiropractic Assistant's Name: self/family In discussion with the attending physician, it is certified that this patient is under their care and that they, or a Nurse Practitioner, or Physician Town Planner who is working directly with them, [...] for services as follows: HOME HEALTH AGENCY: [facility] [address] [place] [id number] RN orders: Cardiopulmonary assessment, incisional assessment, assess [...] issues please call the Cardiology Office at [phone] FOR MEDICARE ONLY: (please delete this section [...] above. Signed: NEFTALI MENON PA-C [facility] Section of Cardiac Surgery [facility] [address] FAX [phone] Date: 02/24/2024 CC: Aparna Jordan, MAURI Jordan, Aparna Sherman APRN [address] [place] [address] documented in this encounter Discharge Instructions * [...] Hayder Graham and/or the Cardiac Surgery Physician Town Planner Team may be reached at . [...] Please refer to the card with the [place] Heart Association Guidelines for more information. You [...] Dr. Hayder Graham. You may use a Kronenwetter Track or treadmill but avoid any pulling [...] should resume a low fat, low cholesterol, [place] Heart Association Diet. Driving: No driving until [...] while being managed by your PCP and/or Steel Die Printer. For future medication refills, please refer to your PCP and/or Steel Die Printer after your discharge from our service. Thank you REMOVE CHEST TUBE SUTURES ON OR AFTER 03/02/24 Home oxygen therapy: N/A Follow up appointments: You should follow up with your PCP, Aparna Jordan APRN, in 1-2 weeks. Our office will schedule an appointment with your Steel Die Printer, Neftali Ernandez MD , in 2 weeks. [...] 0600 and on the weekends please page [phone]. * Eric Barahona PA - 02/23/2024 9:27 [...] 0600 and on the weekends please page [phone]. * Tiffanie Owens, LPN - 02/22/2024 2:48 PM EDT Physical Therapy [...] d/c for 10 days. 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 He drives. He works Precautions/Special Considerations: STERNAL [...] LRAD and supervision Time IN / OUT: 3403-4432 Total Time: 30 minutes; TEFx2 Tiffanie Owens Pager: [phone] Physical Therapy Inpatient Rehabilitation Department * Romeo [...] 0600 and on the weekends please page [phone]. * Kelley Hinson LPN - 02/21/2024 10:15 AM EDT Physical Therapy [...] d/c for 10 days. 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 He drives. He works Precautions/Special Considerations: STERNAL [...] LRAD and supervision Time IN / OUT: 3771-7303 Total Time: 25 minutes; TEF 2 Kelley Hinson PTA Pager: [phone] Physical Therapy Inpatient Rehabilitation Department * Louisa [...] 0600 and on the weekends please page [phone]. * Kelley Hinson PTA - 02/20/2024 3:32 [...] at that time Kelley Hinson PTA Pager: [phone] Physical Therapy Inpatient Rehab Department * Louias Cho PA - 02/20/2024 9:15 AM EDT [...] 0600 and on the weekends please page [phone]. * Maris Benavides, PT - 02/19/2024 11:22 [...] d/c for 10 days. 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 He drives. He works. Precautions/Special Considerations: STERNAL [...] outlined inthis evaluation. MARIS BENAVIDES, PT Pager: [phone] Physical Therapy Inpatient Rehabilitation Department Time IN / OUT: 4498-0965 Total Time: 38 (eval) minutes; * Antonio [...] 0600 and on the weekends please page [phone]. * Minnie Begum PA - 02/18/2024 8:25 [...] 0600 and on the weekends please page [phone]. * Kim Ha RCP - 02/17/2024 2:25 [...] plan since last visit. Hayder Graham MD [phone] Source Note - Hayder Graham MD - [...] given written informed consent. Hayder Graham MD [phone] * Hayder Graham MD - 02/17/2024 7:00 [...] given written informed consent. Hayder Graham MD [phone] documented in this encounter Miscellaneous Notes * [...] information for follow-up Home Health & Hospice, [address] [place] [address] Cardiac Rehab, [address] [place] [address] Transportation: family or friend will provide Functional status prior to admission: Independent Home Environment: Others in the home: alone. Current Living Arrangements: home/apartment/condo. Accessibility Concerns:a few steps to enter 1 floor home. Current Functional Ability: Assistive Person and Equipment DME used at home: none DME Needed at Discharge: N/A Patient is insured through: Primary Insurance: [employer] Payor: [facility] / Plan: [facility] PPO / Product Type: *No Product [...] pain managed with scheduled Tylenol. Worked with [employer]. Ambulated in the roque multiple times during [...] Payor: [facility] / Plan: [facility] PPO / Product Type: *No Product type* / Secondary Insurance: N/A Last Physical Therapy Recommendation: home with home health (Str coming to stay for a week or two upon d/c) with to be determined (owns rolling walker, shower seat) Plan for discharge is: Home w/ Services Outpatient Agency/Support Group Needs: Homecare agency Home Health Services: Physical Therapy, Registered Nurse Agency Referrals: [facility] [address] [place] [phone] Transportation: family or friend will provide Barriers to discharge: Discharge planning Plan going forward: Service Care Management will continue to follow and assist with discharge planning and coordination of care as indicated. 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 (Only good for 180 days) Any patient receiving care in [place] must abide by [place] law. The hierarchy for surrogate decision making [...] (i) The agent with financial power of enterprise application developer or a conservator appointed in accordance with [...] In the past 12 months has the [employer], gas, oil, or water [employer] threatened to shut off services in [...] as: [address] [facility] [address] Physical address: [address] [facility], [address] Social & Family Supports: All names listed [...] Payor: [facility] / Plan: [facility] PPO / Product Type: *No Product type* / Secondary Insurance: N/A ; Prescription Coverage: Yes Preferred Pharmacy: [id number] [address] [place] Status: Patient is a : No Primary Care Provider confirmed: Aparna Jordan, MAURI [phone] Patient/Caregiver Goals of Treatment: dc to home Potential Needs for Transition of Care: home health care Agency Referrals: I have met with the patient to: discuss discharge planning needs. provide the [facility], Office of Care Management letter from the Resource Room Teacher pertaining to rehab referrals. provide a letter describing our affiliations within the [facility] and educate about their right to choose where referrals are sent. provide a list of Home Health Agencies / Durable Medical Equipment vendors which serve their preferred geographic area. provided patient with [facility] Star Quality Rating handout. They have requested referrals to: [facility] [address] [place] [address] Note routed to a Chemical Supervisor who will communicate referrals to facilities [...] Reina Greene RN CM, BSN, CMGT-BC Ext [phone] * Plan of Care - Binta Trinidad [...] Operative Note Patient Name: Karlos Garcia : [id number] MR#: [id number] Case Date: 02/17/2024 Surgeon: Surgeon(s) and Role: * Hayder Graham MD - Primary * Neftali Menon PA - Physician Town Planner Preoperative diagnosis: CAD Postoperative diagnosis: CAD, [...] Operative Note Patient Name: Karlos Garcia : [id number] MR#: [id number] Case Date: 02/17/2024 Surgeon: Surgeons and Role: * Hayder Graham MD - Primary * Neftali Menon PA - Physician Town Planner Preoperative diagnosis: CAD Postoperative diagnosis: CAD, [...] Aortic Valve Open W Cardiopulmonary Bypass Homogrf/Stent (28957) Yes 02/17/2024 7:28 AM EDT CAD Cabg, Artery-Vein, Two (61393) Yes 02/17/2024 7:28 AM EDT CAD Cabg, Arterial, Single (37665) Yes 02/17/2024 7:28 AM EDT CAD Endoscopy W/Video-Asst Vein [place], Cabg (25828) Yes 02/17/2024 7:28 AM EDT CAD POCT [...] CHEMISTRY ORDERABLE S [facility] [place] [address] * (ABNORMAL) Basic Metabolic Panel (non-fasting) (02/23/2024 [...] Carpio MD CHEMISTRY ORDERABLES Performing Organization Address [facility] Co de Phone Number [facility] [place] [address] * Potassium (02/22/2024 4:30 AM EDT) Potassium [...] S Performing Organization Address [facility] Co de Phone Number [facility] [place] [address] * (ABNORMAL) Basic Metabolic Panel (non-fasting) (02/21/2024 [...] MD CHEMISTRY ORDERABLES [facility] [place] [address] * Lactate, whole blood, send to lab ([facility]) (02/21/2024 9:45 AM EDT) Lactate WB 2.0 0.5 - 2.2 mmol/L [facility] Blood 02/21/2024 9:45 AM EDT 02/21/2024 9:52 AM EDT Narrative Resulting Agency Comment Spec In Lab Hayder Graham MD CHEMISTRY ORDERABLE S Performing Organization Address City/[facility]/ZIP Co de Phone Number [facility] [place] [address] * (ABNORMAL) Hepatic Function Panel (02/21/2024 9:45 [...] MD CHEMISTRY ORDERABLE S Performing Organization Address City/[facility]/ZIP Co de Phone Number [facility] [place] [address] * Lipase (02/21/2024 9:45 AM EDT) Pathologist [facility] Lipase 56 0 - 60 unit/L [facility] Blood 02/21/2024 9:45 AM EDT 02/21/2024 9:52 AM EDT Narrative Resulting Agency Comment Spec In Lab Hayder Graham MD CHEMISTRY ORDERABLE S Performing Organization Address [facility] Co de Phone Number [facility] [place] [address] * Amylase (02/21/2024 9:45 AM EDT) Amylase 69 28 - 100 unit/L [facility] Blood 02/21/2024 9:45 AM EDT 02/21/2024 9:52 AM EDT Narrative Resulting Agency Comment Spec In Lab Hayder Graham MD CHEMISTRY ORDERABLE S Performing Organization Address [facility] de Phone Number [facility] [place] [address] * Potassium (02/21/2024 3:08 AM EDT) Pathologist [facility] Potassium 3.8 3.5 - 5.0 mmol/L [facility] [...] S Performing Organization Address [facility] Co de Phone Number [facility] [place] [address] * XR Chest PA & Lateral (Generic) (02/20/2024 10:19 AM EDT) WORKSTATION ID [id number] RAD Anatomical Region Laterality Modality Chest N/A [...] 02/17/2024 FINDINGS: Support devices: Interval removal of [place] catheter, endotracheal tube and mediastinal chest tubes The cardiac silhouette is stable status post median sternotomy, CABG and aortic valve replacement. There are small pleural effusions. No pneumothorax. Procedure Note Rogerio Cruz MD - 02/20/2024 EXAMINATION: XR CHEST PA AND LATERAL (GENERIC) CLINICAL HISTORY: s/p AVR/CABGx3 TECHNIQUE: PA and lateral views of the chest COMPARISON: 02/17/2024 FINDINGS: Support devices: Interval removal of [place]a catheter, endotracheal tubeand mediastinal chest tubes The [...] (02/20/2024 4:23 AM EDT) Plat estimate Decreased [facility] RBC Morphology Normal [facility] Blood 02/20/2024 4:23 AM EDT 02/20/2024 4:42 AM EDT Narrative Resulting Agency Comment Spec In Lab Minnie FRENCH HEMATOLOGY CECILIO ALEMAN [facility] [place] [address] * (ABNORMAL) Differential, Automated (02/20/2024 4:23 AM EDT) Pathologist [facility] Neutrophil % 81.7 % [facility] Neutrophil Absolute 10.37(H) 1.70 - 6.10 x10(3)/mc L [facility] Lymph % 7.4 % [facility] Lymphocytes Abs 0.9 0.9 - 3.2 x10(3)/mc L [facility] Monocyte % 9.7 % [facility] Monocyte Abs 1.2(H) 0.3 - 0.9 x10(3)/mc L [facility] Eos % 0.1 % [facility] Eosinophils Abs 0.0 0.0 - 0.4 x10(3)/mc L [facility] Basophil % 0.2 % [facility] Baso Absolute 0.0 0.0 - 0.1 x10(3)/mc L [facility] Immature Gran % 0.90 % [facility] Comment: Immature granulocytes(IG's)percentage and absolute count will include metamyelocytes, myelocytes, and promyelocytes. Blood smears from CBCs yielding IG's will be scanned manually for concordance. If this scan disagrees with the automated IG or if promyelocytes are noted, a manual differential will be performed. Immature Gran Absolute 0.12(H) 0.00 - 0.04 x10(3)/ L [facility] Blood 02/20/2024 4:23 AM EDT 02/20/2024 4:42 AM EDT Narrative Resulting Agency Comment Spec In Lab Minnie FRENCH HEMATOLOGY CECILIO ALEMAN [facility] [place] [address] * (ABNORMAL) Hemogram (02/20/2024 4:23 AM EDT) [...] CENTER LABORATORY Platelet 88(L) 145 - 357 x10(3)/[facility] RDW Standard Deviation 43.5 36.0 - 45.0 [facility] RDW coefficient of variation 13.7 11.4 - 13.8 % [facility] Mean Platelet Volume 10.2 7.6 - 12.9 [facility] NRBC% auto 0.0 % [facility] NRBC Absolute 0.000 0.000 - 0.000 x10(3)/ L [facility] Blood 02/20/2024 4:23 AM EDT 02/20/2024 4:42 AM EDT Narrative Resulting Agency Comment Spec In Lab Minnie FRENCH HEMATOLOGY CECILIO ALEMAN [facility] [place] [address] * (ABNORMAL) Basic Metabolic Panel (non-fasting) (02/20/2024 [...] MD CHEMISTRY ORDERABLE S Performing Organization Address City/[facility]/ZIP Co de Phone Number [facility] [place] [address] * Potassium (02/19/2024 3:57 AM EDT) Potassium [...] S Performing Organization Address [facility] Co de Phone Number [facility] [place] [address] * POCT Glucose (02/18/2024 8:24 AM EDT) Glucose, POC 157 65 - 199 mg/dL [facility] Comment: Supplemental ranges: <140 mg/dL before meals <180 mg/dL all other times of the day Blood 02/18/2024 8:24 AM EDT 02/18/2024 8:24 AM EDT Hayder Graham MD POINT OF CARE TEST ORDERABLES Performing Organization Address [facility]/ZIP Co de Phone Number [facility] [place] [address] * Scan, Peripheral Blood (02/18/2024 1:40 AM EDT) Plat estimate Decreased [facility] RBC Morphology Normal [facility] Blood 02/18/2024 1:40 AM EDT 02/18/2024 1:56 AM EDT Narrative Resulting Agency Comment Spec In Lab Neftali FRENCH HEMATOLOGY ORDER OLE [facility] [place] [address] * (ABNORMAL) Differential, Automated (02/18/2024 1:40 AM EDT) Neutrophil % 87.1 % [facility] Neutrophil Absolute 15.03(H) 1.70 - 6.10 x10(3)/mc L [facility] Lymph % 3.0 % [facility] Lymphocytes Abs 0.5(L) 0.9 - 3.2 x10(3)/mc L [facility] Monocyte % 9.1 % [facility] Monocyte Abs 1.6(H) 0.3 - 0.9 x10(3)/mc L [facility] Eos % 0.0 % [facility] Eosinophils Abs 0.0 0.0 - 0.4 x10(3)/mc L [facility] Basophil % 0.2 % [facility] [...] Absolute 0.10(H) 0.00 - 0.04 x10(3)/mc L [facility] Blood 02/18/2024 1:40 AM EDT 02/18/2024 1:56 AM EDT Narrative Resulting Agency Comment Spec In Lab Neftali FRENCH HEMATOLOGY ORDER OLE [facility] [place] [address] * (ABNORMAL) Hemogram (02/18/2024 1:40 AM EDT) White Blood Cell 17.2(H) 4.0 - 9.5 x10(3)/mc L [facility] NRBC% auto 0.0 % [facility] NRBC Absolute 0.000 0.000 - 0.000 x10(3)/mc L [facility] Blood 02/18/2024 1:40 AM EDT 02/18/2024 1:56 AM EDT Narrative Resulting Agency Comment Spec In Lab Neftali FRENCH HEMATOLOGY ORDER OLE [facility] [place] [address] * (ABNORMAL) Basic Metabolic Panel (non-fasting) (02/18/2024 [...] CHEMISTRY ORDERABLE S [facility] [address] * (ABNORMAL) Troponin (02/18/2024 1:40 AM EDT) [...] Access Hospital Laboratory Test Catalog Reference: Fourth [place] Definition of Myocardial Infarction. Journal of the [place] College of Cardiology 2018;72:5981-7157 Blood 02/18/2024 1:40 AM EDT 02/18/2024 1:56 AM EDT Narrative Resulting Agency Comment Spec In Lab Hayder Graham MD CHEMISTRY ORDERABLE S [facility] [place] [address] * POCT Glucose (02/17/2024 8:13 PM EDT) Glucose, POC 142 65 - 199 mg/dL [facility] Comment: Supplemental ranges: <140 mg/dL before meals <180 mg/dL all other times of the day Blood 02/17/2024 8:13 PM EDT 02/17/2024 8:13 PM EDT Hayder Graham MD POINT OF CARE TEST ORDERABLES Performing Organization Address [facility] Co de Phone Number [facility] [place] [address] * POCT Glucose (02/17/2024 5:42 PM EDT) Glucose, POC 160 65 - 199 mg/dL [facility] Comment: Supplemental ranges: <140 mg/dL before meals <180 mg/dL all other times of the day Blood 02/17/2024 5:42 PM EDT 02/17/2024 5:42 PM EDT Hayder Graham MD POINT OF CARE TEST ORDERABLES Performing Organization Address [facility] Co de Phone Number [facility] [place] [address] * Hemoglobin (02/17/2024 5:42 PM EDT) [employer] Signature Hemoglobin 13.7 13.7 - 16.5 g/dL [facility] Blood 02/17/2024 5:42 PM EDT 02/17/2024 6:10 PM EDT Narrative Resulting Agency Comment Spec In Lab Hayder Graham MD HEMATOLOGY ORDERABL ES Performing Organization Address [facility] Co de Phone Number [facility] [place] [place] [address] * Potassium (02/17/2024 5:42 PM EDT) [employer] Signature Potassium 4.3 3.5 - 5.0 mmol/L [facility] [...] CHEMISTRY ORDERABLE S [facility] [place] [address] * (ABNORMAL) BLOOD GAS 2 ARTERIAL (02/17/2024 [...] [facility]ICAL [facility]ENTER [facility] FIO2 Art 40 % [facility] PF Ratio Art 195 [facility] Blood 02/17/2024 4:18 PM EDT 02/17/2024 4:18 PM EDT Hayder Graham MD POINT OF CARE TEST ORDERABLES [facility] [place] [place] [address] * XR Chest One View (02/17/2024 1:44 PM EDT) uiu WORKSTATION ID [id number] DH RAD Anatomical Region Laterality Modality Chest N/A Digital Radiogra phy Impressions 02/17/2024 2:12 PM EDT 1. ??No definite pleural fluid collection or pneumothorax. 2. ??Right IJ [place]-Kaila catheter tip terminates in a descending branch [...] 5.2 cm above the carlos. Right IJ [place]-Kaila catheter tip terminates in a descending branch [...] 5.2 cm above the carlos. Right IJ [place]-Ganzcatheter tip terminates in a descending branch of [...] fluid collection or pneumothorax. 2. Right IJ [place]-Kaila catheter tip terminates in a descending branch [...] MEDICAL CENTER LAB[facility] FIO2 Art 100 % [facility] PF Ratio Art 320 [facility] Blood 02/17/2024 1:31 PM EDT 02/17/2024 1:31 PM EDT Hayder Graham MD POINT OF CARE TEST ORDERABLES [facility] [place] [address] * (ABNORMAL) Coox2 (02/17/2024 1:21 PM EDT) [...] OF CARE TEST ORDERABLES Performing Organization Address City/[facility]/ZIP Co de Phone Number [facility] [place] [address] * (ABNORMAL) BLOOD GAS 2 ARTERIAL (02/17/2024 [...] TEST ORDERABLES Performing Organization Address [facility] Co de Phone Number [facility] [place] [address] * (ABNORMAL) Fibrinogen (02/17/2024 12:10 PM EDT) [...] S Performing Organization Address [facility] Co de Phone Number [facility] [place] [address] * (ABNORMAL) Thrombin time (02/17/2024 12:10 PM [...] S Performing Organization Address [facility] Co de Phone Number [facility] [place] [address] * APTT (02/17/2024 12:10 PM EDT) Partial [...] S Performing Organization Address [facility] Co de Phone Number [facility] [place] [address] * (ABNORMAL) Prothrombin Time (02/17/2024 12:10 PM [...] HEMATOLOGY ORDERABLE S [facility] [place] [address] * (ABNORMAL) Hemogram (02/17/2024 12:10 [...] MEDICAL CENTER [facility]AT[facility] NRBC% auto 0.0 % [facility] NRBC Absolute 0.000 0.000 - 0.000 x10(3)/mc L [facility] Blood 02/17/2024 12:1 0 PM EDT 02/17/2024 12:19 PM EDT Narrative Resulting Agency Comment Spec In Lab Tara York MD HEMATOLOGY ORDERABLE S [facility] [place] [address] * (ABNORMAL) BLOOD GAS 2 ARTERIAL (02/17/2024 [...] [facility] Comment: Noted by instrumentation specialist. Please note: Patients with WBC >100,000 [...] CARE TEST ORDERABLES [facility] [place] [address] * (ABNORMAL) BLOOD GAS 2 ARTERIAL (02/17/2024 [...] [facility] Comment: Noted by instrumentation specialist. Please note: Patients with WBC >100,000 [...] TEST ORDERABLES Performing Organization Address [facility] de Phone Number [facility] [place] [address] * (ABNORMAL) Hemoglobin and Hematocrit, blood (02/17/2024 [...] ORDERABL ES Performing Organization Address [facility] de Phone Number [facility] [place] [address] * (ABNORMAL) Platelet count (02/17/2024 11:04 AM EDT) Platelet 106(L) 145 - 357 x10(3)/mc L [facility] Immature Plt % 1.6 0.0 - 7.4 % [facility] Comment: Limitation of the Immature Platelet Fraction (IPF)-May be less reliable when the platelet count is less than 35s407/uL due to statistical imprecision. The IPF value [...] in a decreased state of production. References: [employer] The Clinical Value of the Immature Platelet Fraction (IPF) in Cell Recovery Document Number 10-1143 03/2011 [employer] The Role of the Immature Platelet Fraction (IPF) in the Differential Diagnosis of Thrombocytopenia, Document MKT-[id number] V002/15/14 Blood 02/17/2024 11:0 4 AM EDT 02/17/2024 11:12 AM EDT Narrative Resulting Agency Comment Spec In Lab Hayder Graham MD HEMATOLOGY ORDERABL ES Performing Organization Address City/[facility]/ZIP Co de Phone Number [facility] [place] [address] * (ABNORMAL) Fibrinogen (02/17/2024 11:04 AM EDT) Fibrinogen 149(L) 200 - 393 mg/dL [facility] [...] MD HEMATOLOGY ORDERABL ES Performing Organization Address City/[facility]/ZIP Co de Phone Number [facility] [place] [address] * (ABNORMAL) BLOOD GAS 2 ARTERIAL (02/17/2024 [...] CARE TEST ORDERABLES [facility] [place] [address] * (ABNORMAL) BLOOD GAS 2 ARTERIAL (02/17/2024 [...] [facility] Co de Phone Number [facility] [place] [place] [address] * Surgical Pathology Report (02/17/2024 10:01 AM EDT) Final Diagnosis [id number] ? Location: [facility]; [facility]; The signing pathologist has (i) examined the relevant preparation(s) for the specimen(s) and (ii) rendered or confirmed the diagnosis(es). . ?Surgical Pathology DIAGNOSIS Aortic valve leaflets, excision: Valve leaflets with myxoid degeneration, nodular fibrosis and dystrophic calcifications. Electronically signed by: ?Lindsay FERNANDEZ, Livier Gonzalez Verified: ??02/24/2024 13:49 ??Pathologist Performed at: ??-[facility] [place]ology, [place] [address] Resource Room Teacher: Job Brewer MD, FCAP, ??CLIA Certificate: [id number] SPECIMEN(S) SUBMITTED A - Aortic Valve Leaflets, [...] Sections Processing Blocks submitted for decalcification: A1. Art Display Maker sections in 1 cassette labeled A1. ??ajw 02/24/2024 1:49 PM EDT [facility] AORTIC STRUCTURE / Unknown 02/17/2024 10:01 AM EDT 02/17/2024 10:01 AM EDT Hayder Graham MD PATHOLOGY/[place] [address] * Specimen to Pathology (02/17/2024 10:01 AM EDT) AP Specimen 02/17/2024 10:0 1 AM EDT 02/17/2024 10:01 AM EDT Narrative [facility] - 02/17/2024 10:01 AM EDT Specimen requisition ordered. ??Separate Pathology report to follow Hayder Graham MD PATHOLOGY/CYTOLOGY ORDERABLES [facility] [place] [address] * (ABNORMAL) BLOOD GAS 2 ARTERIAL (02/17/2024 [...] CARE TEST ORDERABLES [facility] [place] [address] * (ABNORMAL) BLOOD GAS 2 VENOUS (02/17/2024 9:34 AM EDT) pH, Venous 7.22(Criti marquez) 7.32 - 7.42 [facility] Comment:Noted by instrumentation specialist. PCO2, Venous 43 41 - 51 mmHg [facility] Comment:Noted by instrumentation specialist. PO2, Venous 57(H) 25 - 40 mmHg [facility] Comment:Noted by instrumentation specialist. Bicarbonate, Venous 17.1 mmol/L [facility] Comment:Noted by instrumentation specialist. Base Excess, Venous -10.6 mmol/L [facility] Comment:Noted by instrumentation specialist. Hgb Blood Gas 11.2(L) 13.7 - 16.5 g/dL [facility] Comment:Noted by instrumentation specialist. Oxyhemoglobin, Venous 86.5 % [facility] Comment:Noted by instrumentation specialist. Carboxyhemoglob in, Venous 0.3 % [facility] Comment: Noted by instrumentation specialist. Nonsmokers: 0.5-1.5% COHB Smokers: Variable, but usually less than 10% Toxic: 20-30% COHB Lethal: Greater than 60% COHB Methemoglobin, Venous 0.0 <=1.5 % [facility] Comment:Noted by instrumentation specialist. Na Whole Blood 156(H) 135 - 145 mmol/L [facility] Comment:Noted by instrumentation specialist. K Whole Blood 5.5(H) 3.5 - 5.0 mmol/L [facility] Comment: Noted by instrumentation specialist. Please note: Patients with WBC >100,000 may have falsely elevated Potassium levels. Contact the Clinical Chemistry Laboratory if there are any questions. ICa Whole Blood 1.03(L) 1.15 - 1.33 mmol/L [facility] Comment: Noted by instrumentation specialist. Note: ??Total bilirubin higher than 20 mg/dL may lead to falsely low ionized calcium. CL Whole Blood 100 98 - 107 mmol/L [facility] Comment:Noted by instrumentation specialist. Gluc Whole Bld 132 65 - 199 mg/dL [facility] Comment: Noted by instrumentation specialist. Diabetes: >=200 mg/dL plus symptoms Lactate WB 1.0 0.5 - 2.2 mmol/L [facility] Comment:Noted by instrumentation specialist. Blood Gas Source Venous [facility] Blood 02/17/2024 9:34 AM EDT 02/17/2024 9:34 AM EDT Hayder Graham MD POINT OF CARE TEST ORDERABLES [facility] [place] [address] * (ABNORMAL) BLOOD GAS 2 ARTERIAL (02/17/2024 [...] OF CARE TEST ORDERABLES Performing Organization Address City/[facility]/ZIP Co de Phone Number [facility] [place] [address] * POCT Glucose (02/17/2024 6:38 AM EDT) Glucose, POC 98 65 - 199 mg/dL [facility] Comment: Supplemental ranges: <140 mg/dL before meals <180 mg/dL all other times of the day Blood 02/17/2024 6:38 AM EDT 02/17/2024 6:38 AM EDT Hayder Graham MD POINT OF CARE TEST ORDERABLES Performing Organization Address [facility] Co de Phone Number [facility] [place] [address] * Transesophageal Echo/OR (02/17/2024 6:33 AM EDT) [...] YORK Referring Physician: APARNA JORDAN Procedure Note Taar York MD - 02/17/2024 Version: 1 Name: [...] [facility] post-operative [facility] of cardiac [...] Routine documented in this encounter Care Teams Patient Transition Specialist Relationship Specialty Start Date End Date Aparna Jordan APRN PCP - General Family Medicine 10/21/23 05/26/24 documented as of this encounter
--- OUTSIDE RECORDS SUMMARY | 2024-09-22 10:06 | XMS_ITS | Encounter Summary ---
Author Organization [facility] [place] [address] Care Team Providers Care Systems Engineering Manager Name Role Phone Vanessa Christian APRN Primary Care Provider [phone] Encounter Details Date Type Department Care Team (Late st Contact Info) Description 10/21/2023 Abstract Cardiology at [address] [place] [id number] Adam Mayes RN Social History Tobacco Use [...] filedocumented in this encounter Care Teams Systems Engineering Manager Relationship Specialty Start Date End Date Vanessa Christian APRN PCP - General Family Medicine 10/21/23 05/26/24 documented as of this encounter
--- OUTSIDE RECORDS SUMMARY | 2024-09-22 10:06 | XMS_ITS | Encounter Summary ---
[place] [address] Care Team Providers Care Live In Companion Name Role Phone Vanessa Christian MAURI Primary Care Provider [phone] Reason for Visit * Auth/Cert (Routine) Specialty [...] RHC (WRVU 5.9) Rima Dickinson MD [facility] [place] [address] [facility] Referral ID Status Reason Start Date Expiration Date Visits Re quested Visits Authorized [id number] 1 1 Encounter Details Date Type Department Care Team (Late st Contact Info) Description 02/03/2024 10:00 AM EDT - 02/03/2024 11:00 AM EDT [place] [address] Saira Lua MD CARDIAC CATHETERIZATION Social History [...] lbs Follow-up Visits Follow up with your nutrition professor in 2-4 weeks Access Site 'Black and Blue' and tenderness is expected during the first week Call if you noted a mass (lump) greater than the size of a ellis Call Office with any Questions and if you have any of the following Clarence Lane M.D Interventional Pump Erector Helper Skin Toggler #: [phone] * Attachments The following attachments cannot be sent through Care Everywhere. * CAD (Coronary Artery Disease): General Info (Serbian) * Coronary Angiogram: Post-op (Serbian) documented in this encounter Medications at Time [...] Pre-Procedure H&P Update: Cardiac Catheterization Karlos Anthony [id number] 1960 Chief Complaint: Aortic stenosis HPI: Mr. [...] is inthe chart Clarence Lane MD Interventional Pump Erector Helper 02/03/24 11:48 AM documented in this encounter Miscellaneous Notes * Brief Op Note - Clarence Lane MD - 02/03/2024 12:51 PM EDT Preliminary Cardiac Catheterization Procedure Note: Patient Name: Karlos Anthony : [id number] MR#: [id number] Case Date: 02/03/2024 Skin Toggler: Surgeon(s) and Role: * Saira Lua MD [...] Other Narrative 02/12/2024 3:47 PM EDT ?[facility] ? Cardiac Catheterization/Intervention Report ? Patient Name: Patenaude, Karlos ? Procedure Date: 02/03/2024 ? A #: [id number] ? Primary Physician: Mogadam, Emad ? Case #: [id number] ? File Name: [id number] ? Catheterization Order Number: [id number] ? [facility] ? Final Report [place], [place] ? Patient Name: ? Karlos Patenaude ? ID#: ?[id number] ? : ?1960 ? Procedure Date: ? [...] Note Saira Lua MD - 02/12/2024 [facility] Cardiac Catheterization/Intervention Report Patient Name: Karlos Anthony Procedure Date: 02/03/2024 A #: [id number] Primary Physician: Saira Lua Case #: [id number] File Name: [id number] Catheterization Order Number: [id number] [facility] FinalReport [place], [place] Patient Name: Karlos Anthony ID#:[id number] :1960 Procedure Date: February 03, 2024 Case [...] designated as ASA Class III. The [facility] clinical frailty scale is 3: Managing [...] (Bezet) 372 ms MUSE SYSTEM Calculated P [place] 59 degrees MUSE SYSTEM Calculated R [place] 34 degrees MUSE SYSTEM Calculated T [place] 63 degrees MUSE SYSTEM INTERPRETATION Sinus bradycardia [...] MD) documented in this encounter Care Teams Live In Companion Relationship Specialty Start Date End Date Vanessa Christian APRN PCP - General Family Medicine 10/21/23 05/26/24 documented as of this encounter
--- OUTSIDE RECORDS SUMMARY | 2024-09-22 10:06 | XMS_ITS | Encounter Summary ---
Author Organization [facility] [place] [address] Care Team Providers Care Machine Operator Slitter Technician Name Role Phone Vanessa Christian APRN Primary Care Provider [phone] Encounter Details Date Type Department Care Team [...] filedocumented in this encounter Care Teams Machine Operator Slitter Technician Relationship Specialty Start Date End Date Vanessa Christian APRN PCP - General Family Medicine 10/21/23 05/26/24 documented as of this encounter
--- OUTSIDE RECORDS SUMMARY | 2024-09-22 10:06 | XMS_ITS | Encounter Summary ---
Author Organization [facility] [place] [address] Care Team Providers Care Hand Router Operator Name Role Phone Vanessa Christian Lane DOTSON Primary Care Provider [phone] Reason for Referral * Diagnostic Test (Routine) - Closed Specialty Diagnoses / Procedures Referred By Contac t Referred To Contact Radiology Diagnoses Nonrheumatic aortic valve stenosis Procedures CT Chest wo Contrast (Generic) Louisa Cho PA [facility] [place] [address] [facility] [place] [address] Referral ID Status Reason Start Date Expiration Date V isits Requested Visits Authorized [id number] Closed Specialty Service Requested 01/10/2024 07/11/2025 1 1 Reason for Visit * Diagnostic Test (Routine) - Closed Specialty Diagnoses / Procedures Referred By Contac t Referred To Contact Radiology Diagnoses Nonrheumatic aortic valve stenosis Procedures CT Chest wo Contrast (Generic) Louisa Cho PA [facility] [place] [address] [facility] [place] [address] Referral ID Status Reason Start Date Expiration Date V isits Requested Visits Authorized [id number] Closed Specialty Service Requested 01/10/2024 07/11/2025 1 1 Encounter Details Date Type Department Care Team (Latest Contact Info) Description 02/03/2024 7:36 AM EDT - 02/03/2024 8:05 AM EDT Hospital [facility] [place] [address] Zak Farmer MD [facility] [place] [address] Nonrheumatic aortic valve stenosis Discharge Disposition: Home Social History Tobacco Use Types Packs/Day Years Used Date Smoking Tobacco: Former Cigarettes Smokeless Tobacco: Never Comments:Quit 15 + years ago Alcohol Use Standard Drinks/Week Comments Yes 0 (1 standard drink = 0.6 oz pur e alcohol) rare [facility] Inpatient Questions Answer Date Recorded [...] wo Contrast (Generic) (02/03/2024 7:44 AM EDT) [employer] Signature WORKSTATION ID [id number] RAD Anatomical Region Laterality Modality Chest Computed [...] by: Rogerio Wright MD, [facility] ([phone]), at 02/03/2024 10:00 AM Narrative 02/03/2024 10:00 [...] nodule along the minor fissure (series 302 [id number]) and a 8 mm right lower lobe [...] by: Rogerio Wright MD, [facility]([phone]), at 02/03/2024 10:00 AM Zak Farmer MD IMG CT ORDERABLES documented in this encounter Visit Diagnoses Diagnosis Nonrheumatic aortic valve stenosis Aortic valve disorders documented in this encounter Care Teams Hand Router Operator Relationship Specialty Start Date End Date Vanessa Christian APRN PCP - General Family Medicine 10/21/23 05/26/24 documented as of this encounter
--- OUTSIDE RECORDS SUMMARY | 2024-09-22 10:06 | XMS_ITS | Encounter Summary ---
Author Organization [facility] [place] [address] Care Team Providers Care Digital Production Operator Name Role Phone Vanessa Christian MAURI Primary Care Provider [phone] Reason for Visit * Auth/Cert (Routine) Specialty [...] W RHC (WRVU 5.9) Rima Dickinson MD [facility] [place] [address] [facility] Referral ID Status Reason Start Date Expiration Date Visits Re quested Visits Authorized [id number] 1 1 Encounter Details Date Type Department Care Team (Latest Contact Info) Description 02/03/2024 8:06 AM EDT - 02/03/2024 2:54 PM EDT Hospital En[place] [address] Rima Dickinson MD [facility] [place] [address] Screening for cardiovascular condition; Aortic valve stenosis, [...] lbs Follow-up Visits Follow up with your boat rigger in 2-4 weeks Access Site 'Black and Blue' and tenderness is expected during the first week Call if you noted a mass (lump) greater than the size of a ellis Call Office with any Questions and if you have any of the following Clarence Lane M.D Interventional Curtain Drier Ship'S Officer #: [phone] * Attachments The following attachments cannot be sent through Care Everywhere. * CAD (Coronary Artery Disease): General Info (Malian) * Coronary Angiogram: Post-op (Malian) documented in this encounter Medications at Time [...] Pre-Procedure H&P Update: Cardiac Catheterization Karlos Anthony [id number] 1960 Chief Complaint: Aortic stenosis HPI: Mr. [...] is inthe chart Clarence Lane MD Interventional Curtain Drier 02/03/24 11:48 AM documented in this encounter Miscellaneous Notes * Brief Op Note - Clarence Lane MD - 02/03/2024 12:51 PM EDT Preliminary Cardiac Catheterization Procedure Note: Patient Name: Karlos Anthony : [id number] MR#: [id number] Case Date: 02/03/2024 Ship'S Officer: Surgeon(s) and Role: * Saira Lua [...] Modality Other Narrative 02/12/2024 3:47 PM EDT ?[facility] ? Cardiac Catheterization/Intervention Report ? Patient Name: Patenaude, Karlos ? Procedure Date: 02/03/2024 ? A #: [id number] ? Primary Physician: Mogadam, Emad ? Case #: [id number] ? File Name: [id number] ? Catheterization Order Number: [id number] ? [facility] ? Final Report [place], [place] ? Patient Name: ? Karlos Anthony ? ID#: ?[id number] ? : ?1960 ? Procedure Date: ? [...] Procedure Note Saira Lua MD - 02/12/2024 [facility] Cardiac Catheter[facility]/Intervention Report Patient Name: Karlos Anthony Procedure Date: 02/03/2024 A #: [id number] Primary Physician: Saira Lua Case #: [id number] File Name: [id number] Catheterization Order Number: [id number] [facility] FinalReport [place], [place] Patient Name: Karlos Anthony ID#:[id number] :1960 Procedure Date: February 03, 2024 Case [...] was designated as ASA Class III. The [facility] clinical frailty scale is 3: Managing [...] (Bezet) 372 ms MUSE SYSTEM Calculated P [place] 59 degrees MUSE SYSTEM Calculated R [place] 34 degrees MUSE SYSTEM Calculated T [place] 63 degrees MUSE SYSTEM INTERPRETATION Sinus bradycardia [...] 1227 (Given - Provid er: Rogerio Oliveors) heparin (porcine) (1,000 units/mL) injection PRN, Starting [...] MD) documented in this encounter Care Teams Digital Production Operator Relationship Specialty Start Date End Date Vanessa Christian APRN PCP - General Family Medicine 10/21/23 05/26/24 documented as of this encounter
--- OUTSIDE RECORDS SUMMARY | 2024-09-22 10:06 | XMS_ITS | Encounter Summary ---
Author Organization [facility] [place] [address] Care Team Providers Care Assembly Press Operator Name Role Phone Vanessa Christian Lane DOTSON Primary Care Provider [phone] Encounter Details Date Type Department Care Team (Late st Contact Info) Description 01/09/2024 2:30 PM EDT Clinical Support Same Day at [facility] [place] [id number] Social History Tobacco Use Types Packs/Day Years Used Date Smoking Tobacco: Former Cigarettes Smokeless Tobacco: Never Comments:Quit 15 + years ago Alcohol Use Standard Drinks/Week Comments Yes 0 (1 standard drink = 0.6 oz pur e alcohol) rare [facility] Inpatient Questions Answer Date Recorded Prevent Contact [...] you tube link for a video about [facility] cardiac surgery. Instructed [...] on filedocumented in this encounter Care Teams Assembly Press Operator Relationship Specialty Start Date End Date Vanessa Christian APRN PCP - General Family Medicine 10/21/23 05/26/24 documented as of this encounter
--- OUTSIDE RECORDS SUMMARY | 2024-09-22 10:06 | XMS_ITS | Encounter Summary ---
Author Organization [facility] [address] Care Team Providers Care Business Support Manager Name Role Phone Vanessa Christian APRN [...] filedocumented in this encounter Care Teams Business Support Manager Relationship Specialty Start Date End Date Vanessa Christian APRN PCP - General Family Medicine 10/21/23 05/26/24 documented as of this encounter
--- OUTSIDE RECORDS SUMMARY | 2024-09-22 10:06 | XMS_ITS | Encounter Summary ---
Author Organization [facility] Address [facility] [place] [address] Care Team Providers Care Tree Worker Name Role Phone Vanessa Christian BEATER ENGINEER Primary Care Provider [phone] Reason for Referral * Diagnostic Test (Routine) - Closed Specialty Diagnoses / Procedures Referred By Contac t Referred To Contact Radiology Diagnoses Nonrheumatic aortic valve stenosis Procedures CT Chest wo Contrast (Generic) Louisa Reid PA [facility] [place] [address] [facility] [place] [address] Referral ID Status Reason Start Date Expiration Date V isits Requested Visits Authorized [id number] Closed Specialty Service Requested 01/10/2024 07/11/2025 1 1 Encounter Details Date Type Department Care Team (Late st Contact Info) Description 01/09/2024 Orders [place] [address] Zak Farmer MD [facility] [place] [address] Nonrheumatic aortic valve stenosis Social History Tobacco [...] encounter Miscellaneous Notes * Addendum Note - Louias Reid PA - 01/09/2024 4:32 PM EDTAddended by: LOUISA REID on: 01/10/2024 03:21 PM Modules accepted: Orders documented in this encounter Plan of Treatment Not on file documented as of this encounter Results * CT Chest wo Contrast (Generic) (02/03/2024 7:44 AM EDT) [place] WORKSTATION ID [id number] RAD Anatomical Region Laterality Modality Chest Computed [...] Wright MD, [facility] ([phone]), at 02/03/2024 10:00 AM Narrative 02/03/2024 10:00 [...] nodule along the minor fissure (series [id number]) and a 8 mm right lower lobe [...] Rogerio Wright MD, [facility]([phone]), at 02/03/2024 10:00 AM Zak Farmer MD IMG CT ORDERABLES documented in this encounter Visit Diagnoses Diagnosis Nonrheumatic aortic valve stenosis Aortic valve disorders Nonrheumatic aortic valve stenosis Aortic valve disorders documented in this encounter Care Teams Tree Worker Relationship Specialty Start Date End Date Vanessa Christian APRN PCP - General Family Medicine 10/21/23 05/26/24 documented as of this encounter
--- OUTSIDE RECORDS SUMMARY | 2024-09-22 10:06 | XMS_ITS | Encounter Summary ---
Author Organization [facility] [place] [address] Care Team Providers Care Laboratory Courier Name Role Phone Vanessa Christian APRN Primary Care Provider [phone] Encounter Details Date Type Department Care Team (Late st Contact Info) Description 12/26/2023 Notes Only Cardiology at [address] [place] [address] Neftali Ernandez MD [facility] [place] [address] Social History Tobacco Use Types Packs/Day Years [...] EDT Echocardiogram images reviewed from [facility]. Indeed, the aortic valve appears severely stenotic. Cannotrule out bicuspid valve documented in this encounter Plan of Treatment Not on file documented as of this encounter Visit Diagnoses Not on filedocumented in this encounter Care Teams Laboratory Courier Relationship Specialty Start Date End Date Vanessa Christian APRN PCP - General Family Medicine 10/21/23 05/26/24 documented as of this encounter
--- OUTSIDE RECORDS SUMMARY | 2024-09-22 10:06 | XMS_ITS | Encounter Summary ---
Author Organization [facility] Address [facility] [address] [place] [id number] Care Team Providers Care System Development Manager Name Role Phone Vanessa Christian MAURI Primary Care Provider [phone] Reason for Referral * Consultation (Routine) - Closed Specialty Diagnoses / Procedures Referred By Contac t Referred To Contact Cardiac Surgery Diagnoses Nonrheumatic aortic valve stenosis significant - TAVR ( defers to Card Surg d/t age) Errol Loya MD [facility] [place] [address] Zak Farmer MD [facility] [place] [address] Referral ID Status Reason Start Date Expiration Date V isits Requested Visits Authorized [id number] Closed Consult, Test & Treat 10/21/2023 10/20/2024 1 1 Reason for Visit * Reason Comments Chest Pain Shortness of Breath Aortic Stenosis Encounter Details Date Type Department Care Team (Late st Contact Info) Description 10/21/2023 1:20 PM EST Office Visit Cardiology at [address] [address] Errol Loya MD [facility] [place] [address] Nonrheumatic aortic valve stenosis Social History Tobacco [...] List Diagnosis Aortic stenosis 12/2022 TTE ([facility]): VITA 0.8-0.9 cm2 (MG 28 mmHg, DOI 3.6 m/s, SVI 35 cc/m2). Trace regurgitation. Normal bi-v s/f, no other valve findings Gastroesophageal reflux Nevus of face Right christian Hypertension HLD (hyperlipidemia) MEDICATIONS: Current Outpatient Medications [...] the meantime will refer to T at [facility] for further evaluation. Logistics and preliminary review of TONY were reviewed with patient. - Refer to T RTC pending TONY evaluation (or review of echocardiogram) Errol Loya MD Between 60-74 minutes were spent doing patient care, chart care/review (today), and care coordination. documented in this encounter Miscellaneous Notes * Assessment & Plan Note - Errlo Loya MD - 10/21/2023 3:47 PM EST [...] the meantime will refer to [facility] at [facility] [...] disorders documented in this encounter Care Teams System Development Manager Relationship Specialty Start Date End Date Vanessa Christian APRN PCP - General Family Medicine 10/21/23 05/26/24 documented as of this encounter
--- OUTSIDE RECORDS SUMMARY | 2024-09-22 10:07 | XMS_ITS | Data Portability ---
Author Organization [place] - [facility] Address [address] [place] [address] Care Team Providers Care Processing Supervisor Name Role Phone APARNA JORDAN Primary Care Provider [phone] SOFIA MCALLISTER Dentist Assessment No assessment recorded. Plan of Treatment Reminders Order Date Submit Date Provider Last Modified By Organization Details Last Modified Time Details Appointments None recorded . Lab magnesiu m, serum or plasma 024 12/18/19 24 [email or web address] [facility] (Registration ), [address] [place] [address] [place], [address], 4 14:25:25 BMP, serum or plasma 024 12/18/19 24 [email or web address] [facility] (Registration ), [address] [place] [address] [place], [address], 4 14:25:24 Referral None recorded . Procedures None recorded . Surgeries None recorded . Imaging None recorded . Medication Orders None recorded . Patient TargetsNo targets recorded. 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 (NEED 2 WITNESSED SIGNATURES) Not available 09/19/2023 09:25:07 12/18/2023 [id number] Karlos: expect a call from the STructural heart team at [facility] drink at least 6 glasses of water [...] 9.3 mg/dL 8.5-10 .1 normal Not Available [address] [place], [address] 12/18/2023 17:09:55 12/18/19 24 12/18/2023 LASIC METAB OLIC PANEL glucose 90 mg/dL 74-106 normal Not Available Baljit montemayor [address] [place], [address] 12/18/2023 17:09:55 12/18/19 24 12/18/2023 LASIC METAB OLIC PANEL BUN 14 mg/dL 7-18 normal Not Available Baljit montemayor [address] [place], [address] 12/18/2023 17:09:55 12/18/19 24 12/18/2023 LASIC METAB OLIC PANEL creatinine 1.0 mg/dL 0.70-1 .30 normal Not Available [address] [place], [address] 12/18/2023 17:09:55 12/18/19 24 12/18/2023 LASIC METAB [...] young er-ag ed adult s. Not Available [address] [place], [address] 12/18/2023 17:09:55 12/18/19 24 12/18/2023 LASIC METAB OLIC PANEL sodium 139 mmol/ L 136-14 5 normal Not Available [address] [place], [address] 12/18/2023 17:09:55 12/18/19 24 12/18/2023 LASIC METAB OLIC PANEL potassium 4.9 mmol/ L 3.5-5. 1 normal Not Available [address] [place], [address] 12/18/2023 17:09:55 12/18/19 24 12/18/2023 LASIC METAB OLIC PANEL chloride 104 mmol/ L 98-107 normal Not Available [address] [place], [address] 12/18/2023 17:09:55 12/18/19 24 12/18/2023 LASIC METAB OLIC PANEL CO2 30.9 mmol/ L 21.0-3 2.0 normal Not Available [address] [place], [address] 12/18/2023 17:09:55 12/18/19 24 12/18/2023 LASIC METAB OLIC PANEL anion gap 4.1 mmol/ L 3-11 normal Not Available [address] [place], [address] 12/18/2023 17:09:55 12/18/19 24 12/18/2023 MAGNE SIUM magnesium 1.8 mg/dL 1.8-2. 4 normal Not Available [address] [place], [address] 12/18/2023 17:09:56 07/27/20 24 07/27/2024 LIPID 2 cholesterol 131 mg/dL <200 Not Available [address] [place], [address] 07/27/2024 11:59:38 07/27/20 24 07/27/2024 LIPID 2 triglyceride 162 mg/dL <150 high Not Available [address] [place], [address] 07/27/2024 11:59:38 07/27/2007/27/2024 LIPID 2 HDL cholesterol 35 mg/dL 40-60 low Not Available Dominique blackburn [address] [place], [address] 07/27/2024 11:59:38 07/27/2007/27/2024 LIPID 2 calculated LDL [...] 18 years or older . Not Available [address] [place], [address] 07/27/2024 11:59:38 07/27/2007/27/2024 COMPR EHENS MADYSON METAB OLIC PANEL calcium 9.2 mg/dL 8.5-10 .1 normal Not Available [address] [place], [address] 07/27/2024 11:59:38 07/27/2007/27/2024 COMPR EHENS MADYSON METAB OLIC PANEL glucose 83 mg/dL 74-106 normal Not Available Baljit montemayor [address] [place], [address] 07/27/2024 11:59:38 07/27/2007/27/2024 COMPR EHENS MADYSON METAB OLIC PANEL BUN 20 mg/dL 7-18 high Not Available Baljit montemayor [address] [place], [address] 07/27/2024 11:59:38 07/27/2007/27/2024 COMPR EHENS MADYSON METAB OLIC PANEL creatinine 1.0 mg/dL 0.70-1 .30 normal Not Available [address] [place], [address] 07/27/2024 11:59:38 07/27/2007/27/2024 COMPR EHENS MADYSON METAB [...] young er-ag ed adult s. Not Available [address] [place], [address] 07/27/2024 11:59:38 07/27/2007/27/2024 COMPR EHENS MADYSON METAB OLIC PANEL total protein 6.8 g/dL 6.4-8. 2 normal Not Available [address] [place], [address] 07/27/2024 11:59:38 07/27/2007/27/2024 COMPR EHENS MADYSON METAB OLIC PANEL albumin 3.5 g/dL 3.4-5. 0 normal Not Available [address] [place], [address] 07/27/2024 11:59:38 07/27/2007/27/2024 COMPR EHENS MADYSON METAB OLIC PANEL bilirubin, total 0.77 mg/dL 0.2-1. 0 normal Not Available [address] [place], [address] 07/27/2024 11:59:38 07/27/2007/27/2024 COMPR EHENS MADYSON METAB OLIC PANEL alk phos 84 U/L 46-116 normal Not Available [address] [place], [address] 07/27/2024 11:59:38 07/27/2007/27/2024 COMPR EHENS MADYSON METAB OLIC PANEL sodium 141 mmol/ L 136-14 5 normal Not Available [address] [place], [address] 07/27/2024 11:59:38 07/27/2007/27/2024 COMPR EHENS MADYSON METAB OLIC PANEL potassium 4.8 mmol/ L 3.5-5. 1 normal Not Available [address] [place], [address] 07/27/2024 11:59:38 07/27/2007/27/2024 COMPR EHENS MADYSON METAB OLIC PANEL chloride 105 mmol/ L 98-107 normal Not Available [address] [place], [address] 07/27/2024 11:59:38 07/27/2007/27/2024 COMPR EHENS MADYSON METAB OLIC PANEL CO2 30.9 mmol/ L 21.0-3 2.0 normal Not Available [address] [place], [address] 07/27/2024 11:59:38 07/27/2007/27/2024 COMPR EHENS MADYSON METAB OLIC PANEL anion gap 5.1 mmol/ L 3-11 normal Not Available [address] [place], [address] 07/27/2024 11:59:38 07/27/2007/27/2024 COMPR EHENS MADYSON METAB OLIC PANEL AST 20 U/L 15-37 normal Not Available Baljit montemayor [address] [place], [address] 07/27/2024 11:59:38 07/27/2007/27/2024 COMPR EHENS MADYSON METAB OLIC PANEL ALT 32 U/L 16-63 normal Not Available Baljit montemayor [address] [place], [address] 07/27/2024 11:59:38 07/27/2007/27/2024 CREAT INE KINAS E creatine kinase 133 U/L 39-308 normal Not Available [facility] [address] , [place], [address] 07/27/2024 11:48:30 09/11/2012/05/2022 trans -thor acic echoc ardio gram (TTE) (PROC ) No observ ation record ed. [email or web address] [facility] Xray [address] , [place], [address], 09/13/2023 09:29:52 09/11/20 23 06/01/2022 XR, hip, unila teral No observ ation record ed. [email or web address] Not Available 2022 09:29:19 09/11/2012/06/2019 , echoc ardio gram No observ ation record ed. [email or web address] - Cardiology [address] [place], [address], 09/13/2023 09:28:49 07/27/20 24 07/27/2024 x-ray imagi ng repor t Flor t Name: Kanu Hugo Unit #: [id number] Loc: DI Orderi ng Provid er: Dc Louis DO Accoun t #: [id number] Status : REG CLI Primar y Care Provid er: Danna Jordan DISCOVERY GUIDE Date of Exam: 07/08 10/30 Sex: M [...] Vascul ar calcif icatio n is noted computer science intern iorly in the poplit eal artery . [...] error, please notify us immedi ately at [phone] and return the origin al report to us at the addres s above. Thank- you. INTERFACE [address], [place], [address] 07/27/2024 18:10:30 Result Notes None recorded. Problems Name Problem SNOMED Code Status Onset Date Resolution Date Notes Provider Name and Address Organization Details Recorded Time Gastroes ophageal reflux disease without esophagi tis 794653758 Active 2022 Problem Code: K21.9; Problem Code Type: ICD-10; Not Available [facility] 4 05:35:57 Glaucoma 55244350 Active 2022 Problem Code: H40.9; Problem Code Type: ICD-10; Not Available [facility] 4 05:35:57 Hyperlip idemia 14805495 Active 2022 Problem Code: E78.5; Problem Code Type: ICD-10; Not Available [facility] 4 05:35:57 [facility] hyperten marisol 49672140 Active 2022 Problem Code: I10; Problem Code Type: ICD-10; Not Available [facility] 4 05:35:57 Pain of left hip joint 24520203751 9100 Active 2022 Problem Code: M25.552; Problem Code Type: ICD-10; Not Available [facility] 4 05:35:57 Idiopath ic osteoart hritis 870424559 Active 2022 Problem Code: M16.12; Problem Code Type: ICD-10; Not Available [facility] 4 05:35:57 Inguinal hernia 376275099 Active 2022 Problem Code: K40.90; Problem Code Type: ICD-10; Not Available [facility] 4 05:35:57 Heart murmur 86324985 Active 2022 Problem Code: R01.1; Problem Code Type: ICD-10; Not Available [facility] 4 05:35:57 Dyspnea 219750943 Active 2022 Problem Code: R06.09; Problem Code Type: ICD-10; Not Available [facility] 4 05:35:57 Chest pain 08388539 Active 2022 Problem Code: R07.89; Problem Code Type: ICD-10; Not Available [facility] 4 05:35:57 Melanocy tic nevus 980218519 Active 2022 Problem Code: D22.9; Problem Code Type: ICD-10; Not Available [facility] 4 05:35:57 Aortic stenosis , non-rheu matic 629673902 Active 2022 Problem Code: I35.0; Problem Code Type: ICD-10; Not Available [facility] 4 05:35:58 Aortic stenosis , non-rheu matic 039900092 Completed 202208/14/2023 Problem Code: I35.0; Problem Code Type: ICD-10; Not Available [facility] 4 05:35:58 Indigest ion 393690239 Active 2023 GLORIA CAMP LPN null, [facility] 4 08:48:57 Coronary artery bypass grafts x 3 Active 2023 Kelly Duran RN null, [facility] 4 10:30:01 At increase d risk of atrial fibrilla tion 703125707 Active [address], [place], [address] , [facility] 4 13:52:01 Anemia 003037601 Active [address], [place], [address] , [facility] 4 13:54:39 Problem Notes None recorded. Procedures Surgical History Date Name Laterality Status Provider Name and Address Organization Details Recorded Time coronary artery bypass graft completed Hudson Reeder MA [facility] 03/04/2024 14:54:09 Imaging Results Imaging Date Name Status LastModified by Organization Details LastModified Time 12/05/2022 trans-thoracic echocardiogram (TTE) (PROC) completed [address] Xray [address] , [place], [address], 09/13/2023 09:29:52 06/01/2022 XR, hip, unilateral [email or web address] Information not available 09/13/2023 09:29:19 12/06/2019 US, echocardiogram completed [address]- Cardiology [address] [place] [address] [place], [address], 09/13/2023 09:28:49 07/27/2024 x-ray imaging report completed INTERFACE [address] [place], [address] 07/27/2024 18:10:30 Procedure Notes None recorded. Medical [...] es. Take 1 hr prior. Started by [facility]. Not Available Not Available Not Available doxycycli [...] BY MOUTH DAILY 02/24 completed stopped by [facility] Not Available Not Available Not Available brimonidi [...] hours by oral route as needed. active [facility] Not Available Not Available No t Available Aspirin Childrens 81 mg chewable tablet Take 1 tablet by mouth once a day active Not Available Not Available No t Available lisinopri l 5 mg tablet TAKE 1 TABLET BY MOUTH EVERY DAY 02/24 completed stopped by [facility] Not Available Not Available Not Available mupirocin [...] day by oral route. active started by [facility] Not Available Not Available Not Available dorzolami de 2 % (PF) eye drops 1 drop both eyes bid 12/17 completed Not Available Not Available Not Available Vitals Date Recorded Body weight Body mass index (BMI) Body height Heart rate Systolic blood pressure Diastolic blood pressure Provider Name and Address Organization Details Last Updated DateTime 3 27452.7 8 g 23.7 kg/m2 167.64 cm 64 /min 110 mm[Hg] 60 mm[Hg] GLORIA CAMP LPN [facility] 3 08:48:49 Date Recorded Body height Body mass index (BMI) Body weight Heart rate Systolic blood pressure Diastolic blood pressure Provider Name and Address Organization Details Last Updated DateTime 4 167.64 cm 24.6 kg/m2 64179.4 4 g 60 /min 112 mm[Hg] 80 mm[Hg] GLORIA CAMP LPN [facility] 4 08:38:13 Date Recorded Body height Body mass index (BMI) Body weight Heart rate Oxygen saturation Oxygen saturation in Arterial blood by Pulse oximetry Systolic blood pressure Diastolic blood pressure Provider Name and Address Organization Details Last Updated DateTime 4 167.64 cm 22.6 kg/m2 20349.6 5 g 63 /min 99 % 99 % 102 mm[Hg] 54 mm[Hg] Hudson Reeder MA [facility] 4 10:27:28 Social History Question Answer Notes LastModified by Organizat ion Details LastModified Time Tobacco Smoking Status Former Smoker Hudson Reeder MA null, [place] - [facility]. 03/06/2024 10:24:50 Do You Have An Advance Directive? Yes Registered 08/15/23 Updated 01/12/24 Information not available 01/15/2024 When Did You Quit Smoking? 11-15years [email or web address] Information not available 03/06/2024 Do You Have A Medical Power Of Spreading Machine Operator? Yes Received 08/30/23, Scanned. Copies Sent To [facility] And Patient 09/02/23. Information not available 09/02/2023 What Was The Date Of Your Most Recent Tobacco Screening? 03/06/2024 [email or web address] Information not available 03/06/2024 What Is Your Current Pack Years? 30ormorepa ckyears [email or web address] Information not available 03/06/2024 How Much Tobacco Do You Smoke? 1 PPD [email or web address] Information not available 03/06/2024 How Many Years Have You Smoked Tobacco? 40 [email or web address] Information not available 03/06/2024 Do You Or Have You Ever Used Any Other Forms Of Tobacco Or Nicotine? No [email or web address] Information not available 03/06/2024 Sex: Male Functional [...] Recorded Time Tdap 3 completed Not Available [facility] 10/18/2023 05:30:17 Td(adult) unspecified formulation 3 completed Not Available [facility] 10/18/2023 05:30:17 COVID-19, mRNA, LNP-S, PF, 100 mcg/0.5mL dose or 50 mcg/0.25mL dose 1 completed Not Available [facility] 10/18/2023 05:30:18 COVID-19, mRNA, LNP-S, PF, 100 mcg/0.5mL dose or 50 mcg/0.25mL dose 1 completed Not Available [facility] 10/18/2023 05:30:18 COVID-19, mRNA, LNP-S, PF, 100 mcg/0.5mL dose or 50 mcg/0.25mL dose 1 completed Not Available [facility] 10/18/2023 05:30:18 influenza, unspecified formulation 1 completed Not Available [facility] 10/18/2023 05:30:18 influenza, unspecified formulation 2 completed Not Available [facility] 10/18/2023 05:30:18 influenza, unspecified formulation 0 completed Not Available [facility] 10/18/2023 05:30:18 influenza, unspecified formulation 9 completed Not Available [facility] 10/18/2023 05:30:18 influenza, unspecified formulation 8 completed Not Available [facility] 10/18/2023 05:30:18 Past Encounters Encounter ID Performer Location Encounter Start Date Encounter Closed Date Diagnosis/Indication Diagnosis SNOMED-CT Code Diagnosis ICD10 Code [id number] [address] [address] 09/19/2023 08:39:51 09/19/2023 09:17:42 Aortic valve stenosis 55794065 I35.0 Essential hypertension 63148894 I10 [id number] [address] [address] 12/18/2023 08:23:47 12/18/2023 09:29:09 Aortic stenosis, non-rheumatic 691295470 I35.0 Essential hypertension 44041158 I10 Nonulcer dyspepsia 92599 07 K30 Cramp in lower leg 21273 8009 R25.2 [id number] TATYANA LEDEZMA MD [address] [address] 03/06/2024 10:15:07 03/06/2024 11:14:28 Postoperative visit 543432661 Z48.89 Aortic rosa m nosis, non-rheumatic 393854581 I35.0 Stented co ronary artery 984862913 Z95.5 At [facility] risk of atrial fibrillation 473208041 Z91.89 Anemia 290389480 D64.9 Health Concerns Section Related Observation LastModified by Organization Detai ls LastModified Time None Recorded Concern Status LastModified by Organization Details LastModified Time None Recorded Advance Directives Directive Y: Registered 08/15/23Updated 01/12/24 Payers Encounter Date Sequence Insurance Name Policy Number Policy Alicia Covered Member ID Alicia Member ID Guarantor Name 12/18/2023 1 [facility] [id number] Karlos C Patenaude [id number] Karlos C Patenaude 03/06/2024 1 [employer] [id number] Karlos C Patenaude [id number] Karlos C Patenaude Notes Date Note Type Note Provider Name and Address Organization Details Recorded Time 09/19/2023 text/html 63-year-old man here for follow-up hypertension, severe aortic stenosis.,He works full-time at [employer]. He lives at home with his dog. He has not heard from [facility] cardiology? referred mid-August.He did decrease his lisinopril to 5 mg, home SBPs running 110- 138, no change in slight lightheadedness with change position. He does continue to get dyspnea on exertion, denies chest pain, resolves fairly quickly no peripheral edema. 12/05/2022 [facility] transthoracic echocardiogram; there is moderate to severe aortic stenosis with disparate indicators. The calculated valve area is 0.8 cm2 is consistent with severe stenosis. Planimetry confirms valve area to 0.9 cm2. The mean gradient of 28 mmHg and peak velocity of 3.6M/S are consistent with moderate stenosis. There is trivial to mild aortic insufficiency. Aparna lizarraag [facility]. 09/19/2023 13:31:38 12/18/2023 text/html 63-year-old man here for follow-up hypertension, severe aortic stenosis.,He works full-time at [employer]. He lives at home with his dog. 12/05/2022 [facility] transthoracic echocardiogram; there is moderate to [...] and Ovaltine in his coffee. Aparna lizarraga, [facility], [facility]. 12/18/2023 11:43:00 03/06/2024 text/html Karlos is here today for a postop evaluation TATYANA LEDEZMA MD [address], [place], [address], [facility], [facility]. 03/08/2024 13:57:34
--- OUTSIDE RECORDS SUMMARY | 2024-09-24 10:12 | XMS_ITS | Encounter Summary ---
Author Organization [facility] Address [address] [place] [address] Care Team Providers Care Pipeline Maintenance Supervisor Name Role Phone Filidayna Vanessa Dayna MONCADA Primary Care Provider [phone] Encounter Details Date Type Department Care Team (Late st Contact Info) Description 10/24/2023 Lab Requisition [facility] Pathology & Laboratory Medicine - [address] [address] Oscar Nichole MD [address] [place] [address] [id number] Factitial dermatitis Social History Tobacco Use Types [...] management options, if applicable. 10/28/2023 11:24 EST [facility] Final Diagnosis A. SKIN OF L[place]HER[place], LEFT, SHAVE BIOPSY: - Seborrheic keratosis, pigmented. 10/28/2023 11:24 EST [facility] Attestation By the signature below, the attending physician certifies that they have 1) personally conducted a gross and/or microscopic examination of the described specimen(s), and/or personally interpreted the results of laboratory testing of the described specimen(s), and 2) personally rendered or confirmed the above diagnosis. 10/28/2023 11:24 [facility] at 1124 Microscopic Description The stratum corneum is thickened by compact and basketweave orthokeratosis with formation of horn pseudocysts. The epidermis is acanthotic with formation of broad and anastomosing trabeculae. The trabeculae are composed of basaloid keratinocytes with round uniform nuclei. The keratinocytes have a variable amount of melanin pigment. 10/28/2023 11:24 [facility] Clinical History Pigmented 2 cm patch; clinical diagnosis code: L98.1 10/28/2023 11:24 [facility] Gross Description A. [...] A3. Nora Anderson 10/25/2023 8:47 10/28/2023 11:24 [facility] Performing Lab [facility] 10/28/2023 11:24 [facility] Scanned Images 10/28/2023 11:24 [facility] Tissue SPECIMEN FROM SKIN / Unknown 10/24/2023 14:30 EST 10/24/2023 22:04 EST us Oscar Nichole MD PATHOLOGY ORDERABLES Final Resul t [facility] [address] [place] [address] documented in this encounter Visit Diagnoses Diagnosis Factitial dermatitis Dermatitis factitia (artefacta) documented in this encounter Care Teams Pipeline Maintenance Supervisor Relationship Specialty Start Date End Date Vanessa Christian NP [address] [place] [address] PCP - General Family Medicine - Primary Care 10/07/23 documented as of this encounter
--- OUTSIDE RECORDS SUMMARY | 2024-09-24 10:12 | XMS_ITS | Referral Summary ---
Author Organization [facility] Address [address] [place] [address] Care Team Providers Care Building Insulation Installer Name Role Phone Vanessa Christian Lane MONCADA Primary Care Provider [phone] Social History Tobacco Use Types Packs/Day Years Used Date Smoking Tobacco: Never Assessed Sex and Gender Information Value Date Recorded Sex Assigned at Not on file Legal Sex Male 22:02 EST Gender Identity Not on file Sexual Orientation Not on file Plan of Treatment Not on file Insurance R Care Teams Building Insulation Installer Relationship Specialty Start Date End Date Vanessa Christian, ANTWAN [address] [place] [phone] PCP - General Family Medicine - Primary Care 10/07/23
--- OUTSIDE RECORDS SUMMARY | 2024-09-24 10:12 | XMS_ITS | Clinical Summary ---
Author Organization [facility] Address [address] [place] [address] Care Team Providers Care [employer] Name Role Phone Filidayna Vanessa Sherman NP Primary Care Provider [phone] Social History Tobacco Use Types Packs/Day Years [...] 75+ series) 2034 Insurance [employer] Care Teams [employer] Relationship Specialty Start Date End Date Vanessa Christian, ANTWAN [address] [place] [phone] PCP - General Family Medicine - Primary Care 10/07/23
--- OUTSIDE RECORDS SUMMARY | 2024-09-24 10:13 | XMS_ITS | Encounter Summary ---
Author Organization [facility] Address [facility] [place] [address] Care Team Providers Care Renewable Energy Project Manager Name Role Phone Vanessa Christian MAURI Primary Care Provider [phone] Encounter Details Date Type Department Care Team (Latest Contact Info) Description 05/27/2024 Travel Social History Tobacco Use Types Packs/Day Years Used Date Smoking Tobacco: Former Cigarettes Smokeless Tobacco: Never Comments:Quit 15 + years ago Alcohol Use Standard Drinks/Week Comments Yes 0 (1 standard drink = 0.6 oz pur e alcohol) rare [facility] Utilities Answer Date Recorded In the [...] on filedocumented in this encounter Care Teams Renewable Energy Project Manager Relationship Specialty Start Date End Date Vanessa Christian APRN [address] [place] [address] PCP - General Family Medicine 05/27/24 documented as of this encounter
--- OUTSIDE RECORDS SUMMARY | 2024-09-24 10:13 | XMS_ITS | Encounter Summary ---
Author Organization [facility] Address [facility] [place] [address] Care Team Providers Care Sales Service Technician Name Role Phone Vanessa Christian Lane DOTSON Primary Care Provider [phone] Reason for Visit * Reason Comments Coronary Artery Disease Aortic Stenosis Encounter Details Date Type Department Care Team (Latest Contact Info) Description 05/27/2024 11:00 AM EDT Office Visit Cardiology at [address] [phone] Neftali Ernandez MD [facility] [place] [address] ASCVD (arteriosclerotic cardiovascular disease); Nonrheumatic aortic valve stenosis Social History Tobacco Use Types Packs/Day Years Used Date Smoking Tobacco: Former Cigarettes Smokeless Tobacco: Never Comments:Quit 15 + years ago Alcohol Use Standard Drinks/Week Comments Yes 0 (1 standard drink = 0.6 oz pur e alcohol) rare [facility] Utilities Answer Date Recorded In the past 12 months has e [employer], gas, oil, or water [employer] threatened to shut off services in your [...] documented in this encounter Care Teams Sales Service Technician Relationship Specialty Start Date End Date Vanessa Christian, MAURI [address] [place] [address] PCP - General Family Medicine 05/27/24 documented as of this encounter
--- OUTSIDE RECORDS SUMMARY | 2024-09-24 10:13 | XMS_ITS | Encounter Summary ---
Author Organization [facility] Address [facility] [place] [address] Care Team Providers Care Tig Welder Name Role Phone Vanessa Christian MAURI Primary Care Provider [phone] Encounter Details Date Type Department Care Team (Latest Contact Info) Description 03/12/2024 1:30 PM EDT - 03/12/2024 11:59 PM EDT Hospital Encounter XRay at [address] [place] [address] Coronary artery disease, unspecified vessel or lesion type, unspecified whether angina present, unspecified whether [place] or transplanted heart Discharge Disposition: Home Social History Tobacco Use Types Packs/Day Years Used Date Smoking Tobacco: Former Cigarettes Smokeless Tobacco: Never Comments:Quit 15 + years ago Alcohol Use Standard Drinks/Week Comments Yes 0 (1 standard drink = 0.6 oz pur e alcohol) rare [facility] Utilities Answer Date Recorded In the past 12 months has e [employer] gas, oil, or water [employer] threatened to shut off services in your [...] (Generic) (03/12/2024 1:42 PM EDT) WORKSTATION ID [id number] RAD Anatomical Region Laterality Modality Chest N/A [...] eval effusions I25.10, Atherosclerotic heart disease of [place] coronary artery without angina pectoris TECHNIQUE: PA [...] eval effusions I25.10, 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 Zak Farmer MD IMG DX ORDERABLES documented in this encounter Visit Diagnoses Diagnosis Coronary artery disease, unspecified vessel or lesion type, unspecified whether angina present, unspecified whether [place] or transplanted heart documented in this encounter Care Teams Tig Welder Relationship Specialty Start Date End Date Vanessa Christian APRN PCP - General Family Medicine 10/21/23 05/26/24 documented as of this encounter
--- OUTSIDE RECORDS SUMMARY | 2024-09-24 10:13 | XMS_ITS | Encounter Summary ---
Author Organization [facility] Address [facility] [place] [address] Care Team Providers Care Metal Leaf Layer Name Role Phone Gino Vanessa Lane DOTSON Primary Care Provider [phone] Encounter Details Date Type Department Care Team (Late st Contact Info) Description 02/24/2024 Orders Only Cardiac Surgery [facility] [place] [phone] Trudi Lester APRN [facility] [place] [address] Social History Tobacco Use Types Packs/Day Years Used Date Smoking Tobacco: Former Cigarettes Smokeless Tobacco: Never Comments:Quit 15 + years ago Alcohol Use Standard Drinks/Week Comments Yes 0 (1 standard drink = 0.6 oz pur e alcohol) rare [facility] Utilities Answer Date Recorded In the past 12 months has e [employer], gas, oil, or water [employer] threatened to shut off services in your [...] filedocumented in this encounter Care Teams Metal Leaf Layer Relationship Specialty Start Date End Date Vanessa Christian APRN PCP - General Family Medicine 10/21/23 05/26/24 documented as of this encounter
--- OUTSIDE RECORDS SUMMARY | 2024-09-24 10:13 | XMS_ITS | Encounter Summary ---
Author Organization [facility] Address [facility] [place] [address] Care Team Providers Care Rock Room Worker Name Role Phone Vanessa Christian CHAIN REPAIRER Primary Care Provider Encounter Details Date Type Department Care Team (Late st Contact Info) Description 03/12/2024 2:40 PM EDT Office [place] [phone] Zak Farmer MD [facility] [place] [address] Coronary artery disease, unspecified vessel or lesion type, unspecified whether angina present, unspecified whether [place] or transplanted heart Social History Tobacco Use Types Packs/Day Years Used Date Smoking Tobacco: Former Cigarettes Smokeless Tobacco: Never Comments:Quit 15 + years ago Alcohol Use Standard Drinks/Week Comments Yes 0 (1 standard drink = 0.6 oz pur e alcohol) rare [facility] Utilities Answer Date Recorded In the past 12 months has e [employer], gas, oil, or water [employer] threatened to shut off services in [...] 2:40 PM EDT To: MD Vanessa Coles, CHAIN REPAIRER Re; Karlos Santa ( 1960) We had [...] office. Best personal regards, Zak Farmer MD [phone] documented in this encounter Plan of Treatment Not on file documented as of this encounter Procedures Procedure Name Priority Date/Time Associated Diagnosis Comments EKG 12-LEAD Routine 03/12/2024 2:35 PM EDT Coronary artery disease, unspecified vessel or lesion type, unspecified whether angina present, unspecified whether [place] or transplanted heart documented in this encounter Results * EKG 12 Lead (03/12/2024 2:35 PM EDT) Ventricular rate 59 BPM MUSE SYSTEM Atrial Rate 59 BPM MUSE SYSTEM P-R Interval 190 ms MUSE SYSTEM QRS Duration 92 ms MUSE SYSTEM Q-T Interval 406 ms MUSE SYSTEM QTC Calculated (Bezet) 401 ms MUSE SYSTEM Calculated P Meherrin -12 degrees MUSE SYSTEM Calculated R Meherrin 24 degrees MUSE SYSTEM Calculated T Meherrin 74 degrees MUSE SYSTEM INTERPRETATION Sinus bradycardia T wave abnormality, consider anterior ischemia Abnormal ECG When compared with ECG of 17-FEB-2024 13:24, SD interval has decreased T wave inversion now evident in Anterior leads Confirmed by Paul Guzman ([id number]) on 03/15/2024 8:36:23 AM MUSE SYSTEM 03/12/2024 2:35 PM EDT 03/15/2024 8:36 AM EDT Zak Farmer MD ECG ORDERABLES [employer] documented in this encounter Visit Diagnoses Diagnosis Coronary artery disease, unspecified vessel or lesion type, unspecified whether angina present, unspecified whether [place] or transplanted heart documented in this encounter Care Teams Rock Room Worker Relationship Specialty Start Date End Date Vanessa Christian, MAURI PCP - General Family Medicine 10/21/23 05/26/24 documented as of this encounter
--- OUTSIDE RECORDS SUMMARY | 2024-09-24 10:13 | XMS_ITS | Encounter Summary ---
Author Organization [facility] Address [facility] [place] [address] Care Team Providers Care Drawing In Machine Tender Helper Name Role Phone Vanessa Christian MAURI Primary Care Provider [phone] Encounter Details Date Type Department Care Team [...] on filedocumented in this encounter Care Teams Drawing In Machine Tender Helper Relationship Specialty Start Date End Date Vanessa Christian APRN PCP - General Family Medicine 10/21/23 05/26/24 documented as of this encounter
--- OUTSIDE RECORDS SUMMARY | 2024-09-24 10:13 | XMS_ITS | Encounter Summary ---
Author Organization [facility] Address [facility] [place] [address] Care Team Providers Care Patrol Lady Name Role Phone Vanessa Christian MAURI Primary Care Provider [phone] Encounter Details Date Type Department Care Team (Latest Contact Info) Description 03/12/2024 Travel Social History Tobacco Use Types Packs/Day Years Used Date Smoking Tobacco: Former Cigarettes Smokeless Tobacco: Never Comments:Quit 15 + years ago Alcohol Use Standard Drinks/Week Comments Yes 0 (1 standard drink = 0.6 oz pur e alcohol) rare [facility] Utilities Answer Date Recorded In [...] on filedocumented in this encounter Care Teams Patrol Lady Relationship Specialty Start Date End Date Vanessa Christian APRN PCP - General Family Medicine 10/21/23 05/26/24 documented as of this encounter
--- OUTSIDE RECORDS SUMMARY | 2024-09-24 10:13 | XMS_ITS | Encounter Summary ---
[place] [address] Care Team Providers Care Net Development Manager Name Role Phone Aparna Jordan MAURI Primary Care Provider [phone] Reason for Referral * Diagnostic Test (Routine) - New Request Specialty Diagnoses / Procedures Referred By Contac t Referred To Contact Cardiology Diagnoses S/P AVR Procedures Echocardiogram Transthoracic Neftali Menon PA [facility] [place] [address] [facility] [place] [address] Referral ID Status Reason Start Date Expiration Date Visits Requested Visits Authorized [id number] New Request Specialty Service Requested 02/24/2024 02/23/2025 1 1 * Consultation (Routine) - Closed Specialty Diagnoses / Procedures Referred By Contac t Referred To Contact Cardiology Diagnoses S/P AVR Hayder Graham MD [facility] [place] [address] Cardiac Rehab, [facility] [address] [place] [address] [place] [address] Referral ID Status Reason Start Date Expiration Date V isits Requested Visits Authorized [id number] Closed Consult, Test & Treat 02/24/2024 08/22/2024 36 36 * Home Health Care (Routine) - Closed Specialty Diagnoses / Procedures Referred By Sixto mendoza Referred To Contact Diagnoses S/P AVR Hayder Graham MD [facility] [place] [address] Referral ID Status Reason Start Date Expiration Date V isits Requested Visits Authorized [id number] Closed Consult, Test & Treat 02/24/2024 08/22/2024 [...] Graham MD [facility] [place] [address] [facility] Referral ID Status Reason Start Date Expiration Date Visits Re quested Visits Authorized [id number] 1 1 Encounter Details Date Type Department Care Team (Latest Contact Info) Description 02/17/2024 5:43 AM EDT - 02/24/2024 11:23 AM EDT Hospital Encounter Heart and Vascular Unit Level 4 [place] [address] Hayder Graham MD [facility] [place] [address] S/P AVR (Primary Dx); Aortic valve stenosis, etiology of cardiac valve disease unspecified Discharge Disposition: Home with VNA Social History Tobacco Use Types Packs/Day Years Used Date Smoking Tobacco: Former Cigarettes Smokeless Tobacco: Never Comments:Quit 15 + years ago Alcohol Use Standard Drinks/Week Comments Yes 0 (1 standard drink = 0.6 oz pur e alcohol) rare [facility] Utilities Answer Date Recorded In [...] 1-2 weeks. Patient to follow up with Hadoop Software Engineer, Neftali Ernandez MD , in 2 weeks. Patient to follow up with Cardiac Surgeon, Dr. Hayder Graham, with a chest x-ray, EKG, and Echo. 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 Past Surgical History: Procedure Laterality Date PRO CABG, ARTERIAL, SINGLE N/A 02/17/2024 @CABG, USING ARTERIAL GRAFT;SINGLE ARTERIAL GRAFT (WRVU 33.75) performed by Hayder Graham MD at [facility] MAIN OR PRO CABG, ARTERY-VEIN, TWO N/A 02/17/2024 @CABG, TWO VENOUS GRAFTS & ARTERIAL GRAFT (WRVU 7.93) performed by Hayder Graham MD at [facility] MAIN OR PRO ENDOSCOPY W/VIDEO-ASST VEIN HARVEST, CABG Left 02/17/2024 ENDOSCOPIC HARVEST VEIN(S) FOR CABG (WRVU 0.31) performed by Hayder Graham MD at [facility] MAIN OR PRO REPLACEMENT PROSTHETIC AORTIC VALVE OPEN W CARDIOPULMONARY BYPASS HOMOGRF/STENT N/A 02/17/2024 @REPLACE AORTIC VALVE, OPEN, W\CPB, W\PROSTHETIC VALVE (WRVU 41.32) performed by Hayder Graham MD at [facility] MAIN OR Prior To Admission Medications [...] insufficiency. He has glaucoma. He used to [email or web address] until about 15 years ago. He has undergone prior herniorrhaphy. 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 Major Procedures/Operations: 02/17/24 s/p avr/cabgx3 CABG x 3 JOSE->LAD SVG->dRCA SVG->OM1 EVH from LLE AVR with a 23 mm Inspiris Bioprosthesis Hospital Course: Karlos Garcia was admitted to [facility] on 02/17/2024 via the Same Day [...] Graham and/or the Cardiac Surgery Physician Manager Ethics Team may be reached at . Antibiotic [...] Please refer to the card with the [place] Heart Association Guidelines for more information. You [...] Dr. Hayder Graham. You may use a [place] Track or treadmill but avoid any pulling [...] friends, go to a movie, go to [employer], etc. Heavy activities: No hunting, skiing, jogging, [...] should resume a low fat, low cholesterol, [place] Heart Association Diet. Driving: No driving until [...] while being managed by your PCP and/or Hadoop Software Engineer. For future medication refills, please refer to your PCP and/or Hadoop Software Engineer after your discharge from our service. Thank you REMOVE CHEST TUBE SUTURES ON OR AFTER 03/02/24 Home oxygen therapy: N/A Follow up appointments: You should follow up with your PCP, Aparna Jordan APRN, in 1-2 weeks. Our office will schedule an appointment with your Hadoop Software Engineer, Neftali Ernandez MD , in 2 [...] Future Orders Complete By Expires Echocardiogram Transthoracic [05612 CPT(R)] 03/26/2024 09/25/2024 Process Instructions: Scheduling Instructions: Questions: Where will study be performed?: [facility] Does the patient have Congenital Heart Disease?: Does patient require sedation?: Sedation rationale: XR Chest PA & Lateral (Generic) [26573 86097 Custom] 03/26/2024 09/25/2024 Process Instructions: Scheduling Instructions: Questions: Portable exam?: Reason for exam and clinical history: s/p avr/cabg Clinical information / jerome questions for radiologist: Stat read required?: Date of injury if applicable: Requested Time: Where will study be performed?: [facility] Radiology Referral to Cardiac Rehab [RUK870 Custom] As directed Process Instructions: If no [...] admission to Home Health. [address] Phone Number: Date of : 1960 Inpatient DOCUMENTATION FOR VNA SERVICES (INCLUDING THOSE PATIENTS WITH MEDICARE COVERAGE REQUIRING HOME VNA SERVICES AND/OR HOSPICE SERVICES) PATIENT'S LOCATION: Karlos Garcia [address] [place] [phone] Shake Feeder's Name: self/family In discussion with the attending physician, it is certified that this patient is under their care and that they, or a Nurse Practitioner, or Physician Manager Ethics who is working directly with them, hada [...] services as follows: HOME HEALTH AGENCY: [facility]. [address] [place] [address] RN orders: Cardiopulmonary assessment, incisional assessment, assess [...] issues please call the Cardiology Office at [phone] FOR MEDICARE ONLY: (please delete this section [...] care: As above. Signed: NEFTALI MENON PA-C [facility] Section of Cardiac Surgery [facility] [place], [place] [address] FAX [phone] Date: 02/24/2024 CC: Aparna Jordan, MAURI Jordan, Aparna Sherman APRN [address] [place] [address] documented in this encounter Discharge Instructions * [...] Graham and/or the Cardiac Surgery Physician Manager Ethics Team may be reached at . Antibiotic [...] Please refer to the card with the [place] Heart Association Guidelines for more information. You [...] Dr. Hayder Graham. You may use a [place] Track or treadmill but avoid any pulling [...] friends, go to a movie, go to [employer], etc. Heavy activities: No hunting, skiing, jogging, [...] should resume a low fat, low cholesterol, [place] Heart Association Diet. Driving: No driving until [...] while being managed by your PCP and/or Hadoop Software Engineer. For future medication refills, please refer to your PCP and/or Hadoop Software Engineer after your discharge from our service. Thank you REMOVE CHEST TUBE SUTURES ON OR AFTER 03/02/24 Home oxygen therapy: N/A Follow up appointments: You should follow up with your PCP, Aparna Jordan APRN, in 1-2 weeks. Our office will schedule an appointment with your Hadoop Software Engineer, Neftali Ernandez MD , in 2 [...] 0600 and on the weekends please page [phone]. * Eric Barahona PA - 02/23/2024 9:27 [...] 0600 and on the weekends please page [phone]. * Tiffanie Owens PTA - 02/22/2024 2:48 [...] d/c for 10 days. 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 He drives. He works Precautions/Special Considerations: [...] LRAD and supervision Time IN / OUT: 5789-2027 Total Time: 30 minutes; TEFx2 Tiffnaie Owens Pager: [phone] Physical Therapy Inpatient Rehabilitation Department * Romeo [...] 0600 and on the weekends please page [phone]. * Kelley Hinson, HADOOP SOFTWARE ENGINEER - 02/21/2024 10:15 AM EDT Physical Therapy [...] d/c for 10 days. 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 He drives. He works Precautions/Special Considerations: [...] LRAD and supervision Time IN / OUT: 7413-4460 Total Time: 25 minutes; TEF 2 Kelley Hinson HADOOP SOFTWARE ENGINEER Pager: [phone] Physical Therapy Inpatient Rehabilitation Department * Louisa [...] 0600 and on the weekends please page [phone]. * Kelley Hinson PTA - 02/20/2024 3:32 PM EDT 02/20/24 7246 Evaluation & Treatment Document Type contact Total Minutes, Physical Therapy 0 Comment, Session Not Performed Checked in w/ pt this PM for ongoing PT services, pt politely declined, stating he had been dealing w/ nausea all day, made plan to see him tomorrow morning, will f/u at that time Kelley Hinson PTA Pager: [phone] Physical Therapy Inpatient Rehab Department * Louisa [...] 0600 and on the weekends please page [phone]. * Maris Benavides, PT - 02/19/2024 11:22 [...] d/c for 10 days. 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 He drives. He works. Precautions/Special Considerations: [...] outlined inthis evaluation. MARIS BENAVIDES, PT Pager: [phone] Physical Therapy Inpatient Rehabilitation Department Time IN / OUT: 7534-2446 Total Time: 38 (eval) minutes; * Antonio [...] 0600 and on the weekends please page [phone]. * Minnie Begum PA - 02/18/2024 8:25 [...] 0600 and on the weekends please page [phone]. * Kim Ha RCP - 02/17/2024 2:25 [...] plan since last visit. Hayder Graham MD [phone] Source Note - Hayder Graham MD - [...] insufficiency. He has glaucoma. He used to [email or web address] until about 15 years ago. He has [...] given written informed consent. Hayder Graham MD [phone] * Hayder Graham MD - 02/17/2024 7:00 [...] given written informed consent. Hayder Graham MD [phone] documented in this encounter Miscellaneous Notes * [...] information for follow-up Home Health & Hospice, [address] [place] [address] Cardiac Rehab, [facility] [address] [place] [address] Transportation: family or friend will provide Functional status prior to admission: Independent Home Environment: Others in the home: alone. Current Living Arrangements: home/apartment/condo. Accessibility Concerns:a few steps to enter 1 floor home. Current Functional Ability: Assistive Person and Equipment DME used at home: none DME Needed at Discharge: N/A Patient is insured through: Primary Insurance: [employer] Payor: [facility] / Plan: [facility] PPO / Product Type: *No [...] pain managed with scheduled Tylenol. Worked with [employer]. Ambulated in the orque multiple times during the day. Amio drip [...] Implemented as Appropriate) * Care Management - hRett Bell RN - 02/20/2024 12:53 PM EDT [...] anticipated Patient is insured through: Primary Insurance: [employer] Payor: [facility] / Plan: [facility] PPO / Product Type: *No [...] Physical Therapy, Registered Nurse Agency Referrals: [facility] [address] [address] Transportation: family or friend will provide Barriers to discharge: Discharge planning Plan going forward: Service Care Management will continue to follow and assist with discharge planning and coordination of care as indicated. 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 (Only good for 180 days) Any patient receiving care in [place] must abide by [place] law. The hierarchy [...] In the past 12 months has the [employer] gas, oil, or water [employer] threatened to shut off services in your [...] as: [address] [facility] [address] Physical address: [address] [facility], [address] Social & Family Supports: All names listed [...] Information: none noted Health/Prescription Coverage: Primary Insurance: [facility] Payor: [facility] / Plan: [facility] PPO / Product Type: *No Product type* / Secondary Insurance: N/A ; Prescription Coverage: Yes Preferred Pharmacy: [id number] AT [facility] & [address] [address] Status: Patient is a : No Primary Care Provider confirmed: Aparna Jordan, [employer] ENVIRONMENTAL ENGINEER [phone] Patient/Caregiver Goals of Treatment: dc to home Potential Needs for Transition of Care: home health care Agency Referrals: I have met with the patient to: discuss discharge planning needs. provide the [facility], Office of Care Management letter from the Enterprise Sales Executive pertaining to rehab referrals. provide a letter describing our affiliations within the [facility] and educate about their right to choose where referrals are sent. provide a list of Home Health Agencies / Durable Medical Equipment vendors which serve their preferred geographic area. provided patient with [facility] Star Quality Rating handout. They have requested referrals to: [facility]. [address] [place] [address] Note routed to a Addiction Counselor who will communicate referrals to facilities and [...] Reina Greene RN CM, BSN, CMGT- Ext [phone] * Plan of Care - Binta Trinidad [...] Operative Note Patient Name: Karlos Garcia DOB: [id number] MR#: [id number] Case Date: 02/17/2024 Surgeon: Surgeon(s) and Role: * Hayder Graham MD - Primary * Neftali Menon PA - Physician Manager Ethics Preoperative diagnosis: CAD Postoperative diagnosis: CAD, intraoperative [...] 02/17/2024 8:20 AM EDT [facility] Operative Note Patient Name: Karlos Garcia : [id number] MR#: [id number] Case Date: 02/17/2024 Surgeon: Surgeons and Role: * Hayder Graham MD - Primary * Neftali Menon PA - Physician Manager Ethics Preoperative diagnosis: CAD Postoperative diagnosis: CAD, intraoperative [...] Mediastinal and Left pleural Disposition: [facility] Procedure Description: The patient was brought to [...] Aortic Valve Open W Cardiopulmonary Bypass Homogrf/Stent (47338) Yes 02/17/2024 7:28 AM EDT CAD Cabg, Artery-Vein, Two (55758) Yes 02/17/2024 7:28 AM EDT CAD Cabg, Arterial, Single (45675) Yes 02/17/2024 7:28 AM EDT CAD Endoscopy W/Video-Asst Vein Bowman, Cabg (77886) Yes 02/17/2024 7:28 AM EDT CAD POCT [...] CHEMISTRY ORDERABLE S [facility] [place] [address] * (ABNORMAL) Basic Metabolic Panel (non-fasting) (02/23/2024 [...] MD CHEMISTRY ORDERABLES [facility] [place] [address] * Potassium (02/22/2024 4:30 AM EDT) [facility] Signature Potassium 3.5 3.5 - 5.0 mmol/L [...] CHEMISTRY ORDERABLE S [facility] [place] [address] * (ABNORMAL) Basic Metabolic Panel (non-fasting) (02/21/2024 [...] Carpio MD CHEMISTRY ORDERABLES Performing Organization Address City/[facility]/ZIP Co de Phone Number [facility] [place] [address] * Lactate, whole blood, send to lab ([facility]) (02/21/2024 9:45 AM EDT) [facility] Lactate WB 2.0 0.5 - 2.2 mmol/L [facility] Blood 02/21/2024 9:45 AM EDT 02/21/2024 9:52 AM EDT Narrative Resulting Agency Comment Spec In Lab Hayder Graham MD CHEMISTRY ORDERABLE S Performing Organization Address [facility] Co de Phone Number [facility] [place] [address] * (ABNORMAL) Hepatic Function Panel (02/21/2024 9:45 [...] CHEMISTRY ORDERABLE S Performing Organization Address City/[facility]/ZIP Co de Phone Number [facility] [place] [address] * Lipase (02/21/2024 9:45 AM EDT) [facility] Lipase 56 0 - 60 unit/L [facility] Blood 02/21/2024 9:45 AM EDT 02/21/2024 9:52 AM EDT Narrative Resulting Agency Comment Spec In Lab Hayder Graham MD CHEMISTRY ORDERABLE S Performing Organization Address [facility] Co de Phone Number [facility] [place] [address] * Amylase (02/21/2024 9:45 AM EDT) Amylase 69 28 - 100 unit/L [facility] Blood 02/21/2024 9:45 AM EDT 02/21/2024 9:52 AM EDT Narrative Resulting Agency Comment Spec In Lab Hayder Graham MD CHEMISTRY ORDERABLE S Performing Organization Address [facility] de Phone Number [facility] [place] [address] * Potassium (02/21/2024 3:08 AM EDT) [facility] Potassium 3.8 3.5 - 5.0 mmol/L [facility] [...] MD CHEMISTRY ORDERABLE S Performing Organization Address [facility] Co de Phone Number [facility] [place] [address] * XR Chest PA & Lateral (Generic) (02/20/2024 10:19 AM EDT) WORKSTATION ID [id number] DH RAD Anatomical Region Laterality Modality Chest N/A Digital Radiogra phy Impressions 02/20/2024 1:11 PM EDT Small pleural effusions. No pneumothorax Thank you for letting us participate in the care of this patient. ??If you are a health care provider and have any questions regarding this report, please contact the number below. ??For patients who have questions please contact the health manager career that requested your imaging first. ? Electronically signed by: Rogerio Cruz MD, [facility] ??([phone]), at 02/20/2024 1:11 PM Narrative 02/20/2024 1:11 PM EDT EXAMINATION: XR CHEST PA AND LATERAL (GENERIC) CLINICAL HISTORY: s/p AVR/CABGx3 TECHNIQUE: PA and lateral views of the chest COMPARISON: 02/17/2024 FINDINGS: Support devices: Interval removal of [place] catheter, endotracheal tube and mediastinal chest tubes The cardiac silhouette is stable status post median sternotomy, CABG and aortic valve replacement. There are small pleural effusions. No pneumothorax. Procedure Note Rogerio Cruz MD - 02/20/2024 EXAMINATION: XR CHEST PA AND LATERAL (GENERIC) CLINICAL HISTORY: s/p AVR/CABGx3 TECHNIQUE: PA and lateral views of the chest COMPARISON: 02/17/2024 FINDINGS: Support devices: Interval removal of [place] catheter, endotracheal tubeand mediastinal chest tubes The [...] who have questions please contactthe health manager career that requested your imaging first. Hayder Graham MD IMG DX ORDERABLES * Scan, Peripheral Blood (02/20/2024 4:23 AM EDT) Pathologist [facility] Plat estimate Decreased [facility] RBC Morphology Normal [facility] Blood 02/20/2024 4:23 AM EDT 02/20/2024 4:42 AM EDT Narrative Resulting Agency Comment Spec In Lab Minnie FRENCH HEMATOLOGY CECILIO ALEMAN [facility] [place] [address] * (ABNORMAL) Differential, Automated (02/20/2024 4:23 AM EDT) [facility] Neutrophil % 81.7 % [facility] Neutrophil Absolute 10.37(H) 1.70 - 6.10 x10(3)/mc L [facility] Lymph % 7.4 % [facility] Lymphocytes Abs 0.9 0.9 - 3.2 x10(3)/mc L [facility] Monocyte % 9.7 % [facility] Monocyte Abs 1.2(H) 0.3 - 0.9 x10(3)/mc L [facility] Eos % 0.1 % UNIVERSITY [...] HEMATOLOGY CECILIO ALEMAN [facility] [place] [address] * (ABNORMAL) Hemogram (02/20/2024 4:23 AM EDT) [...] RDW Standard Deviation 43.5 36.0 - [address].0 [facility] RDW coefficient of variation 13.7 11.4 - 13.8 % [facility] Mean Platelet Volume 10.2 7.6 - 12.9 [facility] LABORATORY NRBC% auto 0.0 % [facility] NRBC Absolute 0.000 0.000 - 0.000 x10(3)/mc L [facility] Blood 02/20/2024 4:23 AM EDT 02/20/2024 4:42 AM EDT Narrative Resulting Agency Comment Spec In Lab Minnie FRENCH HEMATOLOGY CECILIO ALEMNA [facility] [place] [address] * (ABNORMAL) Basic Metabolic Panel (non-fasting) (02/20/2024 [...] MD CHEMISTRY ORDERABLE S Performing Organization Address [facility] Co de Phone Number [facility] [place] [address] * Potassium (02/19/2024 3:57 AM EDT) Potassium [...] MD CHEMISTRY ORDERABLE S Performing Organization Address [facility] Co de Phone Number [facility] [place] [address] * POCT Glucose (02/18/2024 8:24 AM EDT) Glucose, POC 157 65 - 199 mg/dL [facility] Comment: Supplemental ranges: <140 mg/dL before meals <180 mg/dL all other times of the day Blood 02/18/2024 8:24 AM EDT 02/18/2024 8:24 AM EDT Hayder Graham MD POINT OF CARE TEST ORDERABLES [facility] [place] [address] * Scan, Peripheral Blood (02/18/2024 1:40 AM EDT) Pathologist [facility] Plat estimate Decreased [facility] RBC Morphology Normal [facility] Blood 02/18/2024 1:40 AM EDT 02/18/2024 1:56 AM EDT Narrative Resulting Agency Comment Spec In Lab Neftali FRENCH HEMATOLOGY ORDER OLE Performing Organization Address City/[facility]/ZIP Co de Phone Number [facility] [place] [address] * (ABNORMAL) Differential, Automated (02/18/2024 1:40 AM EDT) [facility] Neutrophil % 87.1 % [facility] Neutrophil Absolute 15.03(H) 1.70 - 6.10 x10(3)/mc L [facility] Lymph % 3.0 % [facility] Lymphocytes Abs 0.5(L) 0.9 - 3.2 x10(3)/mc L [facility] Monocyte % 9.1 % [facility] Monocyte Abs 1.6(H) 0.3 - 0.9 x10(3)/mc L [facility] Eos % 0.0 % UNIVERSITY [...] HEMATOLOGY ORDER OLE [facility] [place] [address] * (ABNORMAL) Hemogram (02/18/2024 1:40 AM EDT) White Blood Cell 17.2(H) 4.0 - 9.5 x10(3)/ L [facility] Red Blood Cell 4.71 4.58 - 5.54 x10(6)/ L [facility] Hemoglobin 13.7 [...] HEMATOLOGY ORDER OLE [facility] [place] [address] * (ABNORMAL) Basic Metabolic Panel (non-fasting) (02/18/2024 [...] CHEMISTRY ORDERABLE S Performing Organization Address City/[facility]/ZIP Co de Phone Number [facility] [place] [address] * (ABNORMAL) Troponin (02/18/2024 1:40 AM EDT) [...] troponin value can be found in the [facility] Laboratory Test Catalog Troponin - [facility] Laboratory Test Catalog Reference: Fourth White Stone Definition of Myocardial Infarction. Journal of the [place] [employer] 2018;72:9977-1234 Blood 02/18/2024 1:40 AM EDT 02/18/2024 1:56 AM EDT Narrative Resulting Agency Comment Spec In Lab Hayder Graham MD CHEMISTRY ORDERABLE S [facility] [place] [address] * POCT Glucose (02/17/2024 8:13 PM EDT) Glucose, POC 142 65 - 199 mg/dL [facility] Comment: Supplemental ranges: <140 mg/dL before meals <180 mg/dL all other times of the day Blood 02/17/2024 8:13 PM EDT 02/17/2024 8:13 PM EDT Hayder Graham MD POINT OF CARE TEST ORDERABLES Performing Organization Address [facility] Co de Phone Number [facility] [place] [address] * POCT Glucose (02/17/2024 5:42 PM EDT) Glucose, POC 160 65 - 199 mg/dL [facility] Comment: Supplemental ranges: <140 mg/dL before meals <180 mg/dL all other times of the day Blood 02/17/2024 5:42 PM EDT 02/17/2024 5:42 PM EDT Hayder Graham MD POINT OF CARE TEST ORDERABLES Performing Organization Address [facility]/ZIP Co de Phone Number [facility] [place] [address] * Hemoglobin (02/17/2024 5:42 PM EDT) Hemoglobin 13.7 13.7 - 16.5 g/dL [facility] Blood 02/17/2024 5:42 PM EDT 02/17/2024 6:10 PM EDT Narrative Resulting Agency Comment Spec In Lab Hayder Graham MD HEMATOLOGY ORDERABL ES [facility] [place] [address] * Potassium (02/17/2024 5:42 PM EDT) Potassium [...] MD CHEMISTRY ORDERABLE S Performing Organization Address City/State/[facility] Co de Phone Number [facility] [place] [address] * (ABNORMAL) BLOOD GAS 2 ARTERIAL (02/17/2024 [...] [facility] FIO2 Art 40 % [facility] PF Ratio Art 195 [facility] Blood 02/17/2024 4:18 PM EDT 02/17/2024 4:18 PM EDT Hayder Graham MD POINT OF CARE TEST ORDERABLES [facility] [place] [address] * XR Chest One View (02/17/2024 1:44 PM EDT) [employer] WORKSTATION ID [id number] DH RAD Anatomical Region Laterality Modality Chest N/A Digital Radiogra phy Impressions 02/17/2024 2:12 PM EDT 1. ??No definite pleural fluid collection or pneumothorax. 2. ??Right IJ [place] catheter tip terminates in a descending branch [...] have questions please contact the health manager career that requested your imaging first. ? Electronically signed by: Denzel Hankins MD, [facility] ??([phone]), at 02/17/2024 2:12 PM Narrative 02/17/2024 2:12 PM EDT EXAMINATION: XR CHEST ONE VIEW CLINICAL HISTORY: s/p avr/cabg eval effusions TECHNIQUE: 1 view of the chest COMPARISON: Chest x-ray 01/09/2024, chest CT 02/03/2024 FINDINGS: ET tube tip terminates 5.2 cm above the carlos. Right IJ [place] catheter tip terminates in a descending branch [...] 5.2 cm above the carlos. Right IJ [place]-Ganzcatheter tip terminates in a descending branch of [...] fluid collection or pneumothorax. 2. Right IJ [place] catheter tip terminates in a descending branch ofthe right pulmonary artery. Suggest catheter retraction. 3. Additional support lines and tubes as above. Thank you for letting us participate in the care of this patient. If youare a health care provider and have any questions regarding this report,please contact the number below. For patients who have questions please contactthe health manager career that requested your imaging first. Electronically signed by: Denzel Hankins MD, [facility]([phone]), at 02/17/2024 2:12 PM Hayder Graham MD [...] [facility] FIO2 Art 100 % [facility] PF Ratio Art 320 [facility] Blood 02/17/2024 1:31 PM EDT 02/17/2024 1:31 PM EDT Hayder Graham MD POINT OF CARE TEST ORDERABLES [facility] [place] [address] * (ABNORMAL) Coox2 (02/17/2024 1:21 PM EDT) [...] TEST ORDERABLES [facility] [address] * (ABNORMAL) BLOOD GAS 2 ARTERIAL (02/17/2024 [...] OF CARE TEST ORDERABLES Performing Organization Address [facility]/ZIP Co de Phone Number [facility] [place] [address] * (ABNORMAL) Fibrinogen (02/17/2024 12:10 PM EDT) [...] MD HEMATOLOGY ORDERABLE S Performing Organization Address City/[facility]/ZIP Co de Phone Number [facility] [place] [address] * (ABNORMAL) Thrombin time (02/17/2024 12:10 PM [...] MD HEMATOLOGY ORDERABLE S Performing Organization Address [facility] Co de Phone Number [facility] [place] [address] * APTT (02/17/2024 12:10 PM EDT) Partial [...] MD HEMATOLOGY ORDERABLE S Performing Organization Address [facility] Co de Phone Number [facility] [place] [address] * (ABNORMAL) Prothrombin Time (02/17/2024 12:10 PM [...] ORDERABLE S [facility] [place] [address] * (ABNORMAL) Hemogram (02/17/2024 12:10 PM EDT) [...] RDW Standard Deviation 40.2 36.0 - [address].0 [facility] RDW coefficient of variation 12.8 [...] HEMATOLOGY ORDERABLE S [facility] [place] [address] * (ABNORMAL) BLOOD GAS 2 ARTERIAL (02/17/2024 [...] [facility] Comment: Noted by band instrument repairer. Please note: Patients with WBC [...] CARE TEST ORDERABLES [facility] [place] [address] * (ABNORMAL) BLOOD GAS 2 ARTERIAL (02/17/2024 [...] [facility] Comment: Noted by band instrument repairer. Please note: Patients with WBC [...] OF CARE TEST ORDERABLES Performing Organization Address [facility]/ZIP Co de Phone Number [facility] [place] [address] * (ABNORMAL) Hemoglobin and Hematocrit, blood (02/17/2024 [...] HEMATOLOGY ORDERABL ES Performing Organization Address City/[facility]/[place] [address] * (ABNORMAL) Platelet count (02/17/2024 11:04 AM EDT) Platelet 106(L) 145 - 357 x10(3)/mc L [facility] Immature Plt % 1.6 0.0 - 7.4 % [facility] Comment: Limitation of the Immature Platelet Fraction (IPF)-May be less reliable when the platelet count is less than 21h792/uL due to statistical imprecision. The IPF value [...] in a decreased state of production. References: [employer] The Clinical Value of the Immature Platelet Fraction (IPF) in Cell Recovery Document Number 10-1143 03/2011 [employer] The Role of the Immature Platelet Fraction (IPF) in the Differential Diagnosis of Thrombocytopenia, Document MKT-10-1209 V002/15/14 Blood 02/17/2024 11:0 4 AM EDT 02/17/2024 11:12 AM EDT Narrative Resulting Agency Comment Spec In Lab Hayder Graham MD HEMATOLOGY ORDERABL ES Performing Organization Address City/State/[facility] Co de Phone Number [facility] [place] [address] * (ABNORMAL) Fibrinogen (02/17/2024 11:04 AM EDT) [...] HEMATOLOGY ORDERABL ES [facility] [place] [address] * (ABNORMAL) BLOOD GAS 2 ARTERIAL (02/17/2024 [...] CARE TEST ORDERABLES [facility] [place] [address] * (ABNORMAL) BLOOD GAS 2 ARTERIAL (02/17/2024 [...] CARE TEST ORDERABLES [facility] [place] [address] * Surgical Pathology Report (02/17/2024 10:01 AM EDT) Final Diagnosis [id number] ? Location: [facility]; [facility]; The signing pathologist has (i) examined the relevant preparation(s) for the specimen(s) and (ii) rendered or confirmed the diagnosis(es). . ?Surgical Pathology DIAGNOSIS Aortic valve leaflets, excision: Valve leaflets with myxoid degeneration, nodular fibrosis and dystrophic calcifications. Electronically signed by: ?Livier Montoya MD Verified: ??02/24/2024 13:49 ??Pathologist Performed at: ??-[facility] [place], [place] [address] Enterprise Sales Executive: Job Brewer MD, FCAP, ??IA Certificate: [id number] SPECIMEN(S) SUBMITTED A - Aortic Valve Leaflets, [...] Sections Processing Blocks submitted for decalcification: A1. Electrogalvanizing Machine Operator sections in 1 cassette labeled A1. ??ajw 02/24/2024 1:49 PM EDT [facility] AORTIC STRUCTURE / Unknown 02/17/2024 10:01 AM EDT 02/17/2024 10:01 AM EDT Hayder Graham MD PATHOLOGY/CYTOLOGY ORDERABLES [facility] [place] [address] * Specimen to Pathology (02/17/2024 10:01 AM EDT) AP Specimen 02/17/2024 10:0 1 AM EDT 02/17/2024 10:01 AM EDT Narrative [facility] - 02/17/2024 10:01 AM EDT Specimen requisition ordered. ??Separate Pathology report to follow Hayder Graham MD PATHOLOGY/CYTOLOGY ORDERABLES Performing Organization Address City/[facility]/ZIP Co de Phone Number [facility] [place] [address] * (ABNORMAL) BLOOD GAS 2 ARTERIAL (02/17/2024 [...] CARE TEST ORDERABLES [facility] [place] [address] * (ABNORMAL) BLOOD GAS 2 VENOUS (02/17/2024 9:34 AM EDT) pH, Venous 7.22(Criti marquez) 7.32 - 7.42 [facility] Comment:Noted by band instrument repairer. PCO2, Venous 43 41 - 51 mmHg [facility] Comment:Noted by band instrument repairer. PO2, Venous 57(H) 25 - 40 mmHg [facility] Comment:Noted by band instrument repairer. Bicarbonate, Venous 17.1 mmol/L [facility] Comment:Noted by band instrument repairer. Base Excess, Venous -10.6 mmol/L [facility] Comment:Noted by band instrument repairer. Hgb Blood Gas 11.2(L) 13.7 - 16.5 g/dL [facility] Comment:Noted by band instrument repairer. Oxyhemoglobin, Venous 86.5 % [facility] Comment:Noted by band instrument repairer. Carboxyhemoglob in, Venous 0.3 % [facility] Comment: Noted by band instrument repairer. Nonsmokers: 0.5-1.5% COHB Smokers: Variable, but usually less than 10% Toxic: 20-30% COHB Lethal: Greater than 60% COHB Methemoglobin, Venous 0.0 <=1.5 % [facility] Comment:Noted by band instrument repairer. Na Whole Blood 156(H) 135 - 145 mmol/L [facility] Comment:Noted by band instrument repairer. K Whole Blood 5.5(H) 3.5 - 5.0 mmol/L [facility] Comment: Noted by band instrument repairer. Please note: Patients with WBC >100,000 may have falsely elevated Potassium levels. Contact the Clinical Chemistry Laboratory if there are any questions. ICa Whole Blood 1.03(L) 1.15 - 1.33 mmol/L [facility] Comment: Noted by band instrument repairer. Note: ??Total bilirubin higher than 20 mg/dL may lead to falsely low ionized calcium. CL Whole Blood 100 98 - 107 mmol/L [facility] Comment:Noted by band instrument repairer. Gluc Whole Bld 132 65 - 199 mg/dL [facility] Comment: Noted by band instrument repairer. Diabetes: >=200 mg/dL plus symptoms Lactate WB 1.0 0.5 - 2.2 mmol/L [facility] Comment:Noted by band instrument repairer. Blood Gas Source Venous [facility] Blood 02/17/2024 9:34 AM EDT 02/17/2024 9:34 AM EDT Hayder Graham MD POINT OF CARE TEST ORDERABLES [facility] [place] [address] * (ABNORMAL) BLOOD GAS 2 ARTERIAL (02/17/2024 [...] OF CARE TEST ORDERABLES Performing Organization Address [facility] Co de Phone Number [facility] [place] [address] * POCT Glucose (02/17/2024 6:38 AM EDT) Glucose, POC 98 65 - 199 mg/dL [facility] Comment: Supplemental ranges: <140 mg/dL before meals <180 mg/dL all other times of the day Blood 02/17/2024 6:38 AM EDT 02/17/2024 6:38 AM EDT Hayder Graham MD POINT OF CARE TEST ORDERABLES Performing Organization Address [facility] de Phone Number [facility] [place] [address] * Transesophageal Echo/OR (02/17/2024 6:33 AM EDT) [...] [facility] [...] dose on Sat02/17/24 at 1400, Until Discontinued, [place] teeth and / or gums. Scan the CHG vial in the [employer] Q-Care Oral Care Kit from floor stock. Ventilator-associated pneumonia prophylaxis For use in ICU/Critical care locations ONLY. Obtain kit from Floor Stock location. Scan CHG vial in the [employer] Q-Care Oral Care Kit, Routine Given [...] PHENYLephrine and/or vasopressin ineffective. Call pager # [phone] if initiated. Titrate to keep systolic blood [...] distribution associate for additional fluid orders: pager #[phone]. Rate/Dose Verify 02/18/2024 8:00 AM EDT 1 mL/hr 1 mL/hr Rate/Dose Verify 02/18/2024 6:00 AM EDT 1 mL/hr 1 mL/hr Rate/Dose Verify 02/18/2024 4:00 AM EDT 1 mL/hr 1 mL/hr sodium chloride 0.9% infusion 10-30 mL/hr, Intravenous, DAILY PRN, Starting on Sat02/17/24 at 1307, Until Sat02/18/24 at 0835, Side port TKO rate, per [facility] nursing protocol. Rate/Dose Verify 02/17/2024 8:00 PM [...] Provider: Reilly Vincent RN)2056 (Given - Provider: oPlo Britton RN) 09 (Given - Provider: Mishel [...] Routine documented in this encounter Care Teams Net Development Manager Relationship Specialty Start Date End Date Aparna Jordan APRN PCP - General Family Medicine 10/21/23 05/26/24 documented as of this encounter
--- OUTSIDE RECORDS SUMMARY | 2024-09-24 10:13 | XMS_ITS | Clinical Summary ---
Author Organization [facility] Address [facility] [place] [address] Care Team Providers Care Inventory Control Manager Name Role Phone Vanessa Christian Lane DOTSON Primary Care Provider [phone] Allergies No known active allergies Medications Medication [...] the meantime will refer to SHT at [facility] for further evaluation. Logistics and preliminary review of TONY were reviewed with patient. - Refer to SHT Hypertension 08/14/2023 Resolved Problems Problem Noted Date Diagnosed Date Resolved Date Nevus of face 09/26/2023 05/27/2024 Overview (09/26/2023): Right restoration Chest pressure 08/14/2023 10/21/2023 SILVA (dyspnea on exertion) 08/14/2023 HLD (hyperlipidemia) 08/14/2023 024 Social History Tobacco Use Types Packs/Day Years Used Date Smoking Tobacco: Former Cigarettes Smokeless Tobacco: Never Comments:Quit 15 + years ago Alcohol Use Standard Drinks/Week Comments Yes 0 (1 standard drink = 0.6 oz pur e alcohol) rare [facility] Utilities Answer Date Recorded In [...] 2024 Medical Devices Implanted Type Area Gas Operation Manager Device Identifier Shelf Expiration Date Model / Serial / Lot Cable,Cut,Edg ,Blnt,Ss,3tpr ([id number]) - [id number] Implanted:Qty : 1 on 02/17/2024 by Zak Farmer MD at [facility] IMPLANTS Midline: Chest [employer] - [id number] 09/02/2028 [id number] / / [id number] Valve Coronary Aortic 23mm Tissue Trnscath [employer] Inspiris ([id number]) (Autoreq) - [id number] Implanted:Qty : 1 on 02/17/2024 by Zak Farmer MD at [facility] IMPLANTS Heart [employer] - TSAI LI 09/15/2027 [id number] 23MM / [id number] / Advance Directives * Attempt Cardiopulmonary Resuscitation [...] Status decision made by: Patient Care Teams Inventory Control Manager Relationship Specialty Start Date End Date Vanessa Christian, MAURI [address] [place] [address] PCP - General Family Medicine 05/27/24
--- OUTSIDE RECORDS SUMMARY | 2024-09-24 10:14 | XMS_ITS | Encounter Summary ---
Author Organization [facility] Address [facility] [place] [address] Care Team Providers Care Waxer Name Role Phone Vanessa Christian MAURI Primary Care Provider [phone] Encounter Details Date Type Department Care Team (Late st Contact Info) Description 02/14/2024 Orders [place] [phone] Zak Farmer MD [facility] DR [place] [address] Coronary artery disease, unspecified vessel or lesion type, unspecified whether angina present, unspecified whether [place]ahu[place] or transplanted heart (Primary Dx) Social History [...] When compared with ECG of 17-FEB-2024 13:24, NC interval has decreased T wave inversion now evident in Anterior leads Confirmed by Paul Guzman ([id number]) on 03/15/2024 8:36:23 AM MUSE SYSTEM 03/12/2024 2:35 PM EDT 03/15/2024 8:36 AM EDT Zak Farmer MD ECG ORDERABLES MUSE SYSTEM * XR Chest PA & Lateral (Generic) (03/12/2024 1:42 PM EDT) Pathologist [facility] WORKSTATION ID [id number] [facility] Anatomical Region Laterality Modality Chest N/A Digital [...] eval effusions I25.10, 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 Zak Farmer MD IMG DX ORDERABLES documented in this encounter Visit Diagnoses Diagnosis Coronary artery disease, unspecified vessel or lesion type, unspecified whether angina present, unspecified whether [place]ahu[place] or transplanted heart- Primary Coronary artery disease, unspecified vessel or lesion type, unspecified whether angina present, unspecified whether [place]ahuilla or transplanted heart documented in this encounter Care Teams Waxer Relationship Specialty Start Date End Date Vanessa Christian APRN PCP - General Family Medicine 10/21/23 05/26/24 documented as of this encounter
--- OUTSIDE RECORDS SUMMARY | 2024-09-24 10:14 | XMS_ITS | Encounter Summary ---
Author Organization [facility] [place] [address] Care Team Providers Care Hydrogen Plant Operations Manager Name Role Phone Vanessa Christian APRN Primary Care Provider [phone] Encounter Details Date Type Department Care Team (Late st Contact Info) Description 01/10/2024 Orders [place] [phone] Lawson Napoles PA [facility] [place] [address] Screening for cardiovascular condition; Aortic valve stenosis, [...] unspecified documented in this encounter Care Teams Hydrogen Plant Operations Manager Relationship Specialty Start Date End Date Vanessa Christian APRN PCP - General Family Medicine 10/21/23 05/26/24 documented as of this encounter
--- OUTSIDE RECORDS SUMMARY | 2024-09-24 10:14 | XMS_ITS | Encounter Summary ---
Author Organization [facility] Ivana [facility] [place] [address] Care Team Providers Care Air Conditioning Manager Name Role Phone Vanessa Christian MAURI Primary Care Provider [phone] Reason for Visit * Auth/Cert (Routine) Specialty [...] ARTERIAL GRAFT (WRVU 7.93) Zak Farmer MD [facility] [place] [address] [facility] Referral ID Status Reason Start Date Expiration Date Visits Re quested Visits Authorized [id number] 1 1 Encounter Details Date Type Department Care Team (Late st Contact Info) Description 02/17/2024 7:35 AM EDT Anesthesia Event Main Operating Room [facility] [place] [phone] Roman York MD [facility] [place] [address] Anesthesia Record Procedure Summary Procedure Name Responsible [...] by Sadiq Woo RN PIV 02/17/24; 0715; [id number] catheter system; 18 gauge; cephalic vein (lateral [...] bag; 02/19/24; 1050 02/17/24 0800 by Driss Mnocada RN 02/19/24 1050 by Jazlyn Maldonado RN [...] th e electric, gas, oil, or water [employer] threatened to shut off services in [...] Procedure Summary Date: 02/17/24 Room / Location: [facility] OR [address] [place] [address] MAIN OR Anesthesia Start: 734 Anesthesia Stop: [...] unfiled device data. Patient Location: [facility] Level of Consciousness: Sedated (Pharmacologic/Intentional) Pain Management: [...] 08/14/2023 ??? Nevus of face 09/26/2023 Right mosque No past surgical history on file. Social [...] Miscellaneous Notes * Addendum Note - Roman Yrok MD - 02/17/2024 3:26 PM EDT Addendum [...] documented in this encounter Care Teams Air Conditioning Manager Relationship Specialty Start Date End Date Vanessa Christian APRN PCP - General Family Medicine 10/21/23 05/26/24 documented as of this encounter
--- OUTSIDE RECORDS SUMMARY | 2024-09-24 10:14 | XMS_ITS | Encounter Summary ---
Author Organization [facility] [place] [address] Care Team Providers Care Keymodule Assembly Machine Tender Name Role Phone Vanessa Christian APRN Primary Care Provider [phone] Encounter Details Date Type Department Care Team (Late st Contact Info) Description 10/21/2023 Abstract Cardiology at [address] [place] [phone] Adam Mayes RN Social History Tobacco Use [...] on filedocumented in this encounter Care Teams Keymodule Assembly Machine Tender Relationship Specialty Start Date End Date Vanessa Christian APRN PCP - General Family Medicine 10/21/23 05/26/24 documented as of this encounter
--- OUTSIDE RECORDS SUMMARY | 2024-09-24 10:14 | XMS_ITS | Encounter Summary ---
Author Organization [facility] [place] [address] Care Team Providers Care Agronomy Manager Name Role Phone Vanessa Christian Lane DOTSON Primary Care Provider [phone] Reason for Referral * Diagnostic Test (Routine) - Closed Specialty Diagnoses / Procedures Referred By Contac t Referred To Contact Radiology Diagnoses Nonrheumatic aortic valve stenosis Procedures CT Chest wo Contrast (Generic) Louisa Cho PA [facility] DR CARDIOTHORACIC [place] [address] [facility] [place] [address] Referral ID Status Reason Start Date Expiration Date V isits Requested Visits Authorized [id number] Closed Specialty Service Requested 01/10/2024 07/11/2025 1 1 Reason for Visit * Diagnostic Test (Routine) - Closed Specialty Diagnoses / Procedures Referred By Contac t Referred To Contact Radiology Diagnoses Nonrheumatic aortic valve stenosis Procedures CT Chest wo Contrast (Generic) Louisa Cho PA [facility] C[place]AC[place] [address] [facility] [place] [address] Referral ID Status Reason Start Date Expiration Date V isits Requested Visits Authorized [id number] Closed Specialty Service Requested 01/10/2024 07/11/2025 1 1 Encounter Details Date Type Department Care Team (Latest Contact Info) Description 02/03/2024 7:36 AM EDT - 02/03/2024 8:05 AM EDT Hospital Encounter CT Scan at [facility] [place] [address] Zak Farmer MD [facility] CARDIOTHORAC[place] [address] Nonrheumatic aortic valve stenosis Discharge Disposition: Home [...] wo Contrast (Generic) (02/03/2024 7:44 AM EDT) One[employer] Signature WORKSTATION ID [id number] RAD Anatomical Region Laterality Modality Chest Computed [...] signed by: Rogerio Wright MD, [facility] ([phone]), at 02/03/2024 10:00 AM Narrative 02/03/2024 10:00 [...] nodule along the minor fissure (series [id number]) and a 8 mm right lower lobe [...] signed by: Rogerio Wright MD, [facility]([phone]), at 02/03/2024 10:00 AM Zak Farmer MD IMG CT ORDERABLES documented in this encounter Visit Diagnoses Diagnosis Nonrheumatic aortic valve stenosis Aortic valve disorders documented in this encounter Care Teams Agronomy Manager Relationship Specialty Start Date End Date Vanessa Christian APRN PCP - General Family Medicine 10/21/23 05/26/24 documented as of this encounter
--- OUTSIDE RECORDS SUMMARY | 2024-09-24 10:14 | XMS_ITS | Encounter Summary ---
Author Organization [facility] [place] [address] Care Team Providers Care Academic Registrar Name Role Phone Vanessa Christian APRN Primary Care Provider [phone] Encounter Details Date Type Department Care Team [...] filedocumented in this encounter Care Teams Academic Registrar Relationship Specialty Start Date End Date Vanessa Christian APRN PCP - General Family Medicine 10/21/23 05/26/24 documented as of this encounter
--- OUTSIDE RECORDS SUMMARY | 2024-09-24 10:14 | XMS_ITS | Encounter Summary ---
Author Organization [facility] Address [facility] [place] [address] Care Team Providers Care Hose Sprayer Name Role Phone Vanessa Christian MAURI Primary Care Provider [phone] Reason for Visit * Consultation (Routine) - Closed Specialty Diagnoses / Procedures Referred By Contac t Referred To Contact Cardiac Surgery Diagnoses Nonrheumatic aortic valve stenosis significant - TAVR ( defers to Card Surg d/t age) Neftali Ernandez MD [facility] [place] [address] Zak Farmer MD [facility] CARDIOTHORACIC [place] [address] Referral ID Status Reason Start Date Expiration Date V isits Requested Visits Authorized [id number] Closed Consult, Test & Treat 10/21/2023 10/20/2024 1 1 Encounter Details Date Type Department Care Team (Late st Contact Info) Description 01/09/2024 1:40 PM EDT Office [place] [address] Zak Farmer MD [facility] CARDIOTHORACIC [place] [address] Nonrheumatic aortic valve stenosis Social [...] office. Best personal regards, Zak Farmer MD [phone] In aggregate 55 minutes were spent evaluating [...] who have questions please contact the health nursing care attendant that requested your imaging first. ? Electronically signed by: Toby Dave MD, [facility] ([phone]), at 01/09/2024 3:11 PM Narrative 01/09/2024 3:11 [...] patients who have questions please contactthe health nursing care attendant that requested your imaging first. Electronically signed by: Toby Dave MD, [facility]([phone]), at 01/09/2024 3:11 PM Zak Farmer MD [...] MD CHEMISTRY ORDERABLE S [facility] [place] [address] * Hepatic Function Panel (01/09/2024 2:58 PM [...] MD CHEMISTRY ORDERABLE S Performing Organization Address [facility] Co de Phone Number [facility] [place] [address] * Prothrombin Time (01/09/2024 2:58 PM EDT) [...] MD HEMATOLOGY ORDERABL ES Performing Organization Address [facility] Co de Phone Number [facility] [place] [address] * Type and Screen Future Surgery, [facility] SAME DAY PROGRAM ONLY) (01/09/2024 2:58 PM EDT) ABORH Type O NEGATIVE [facility] Patient BB History Not Found [facility] Expires at [phone] on: 02-20-2024 [facility] Ab Screen Interp Negative [facility] Blood 01/09/2024 2:58 PM EDT 01/09/2024 2:58 PM EDT Narrative Resulting Agency Comment Spec In Lab Zak Farmer MD BLOOD BANK LAB ORDE ASH Performing Organization Address City/State/[facility] Co de Phone Number [facility] [place] [address] documented in this encounter Visit Diagnoses Diagnosis Nonrheumatic aortic valve stenosis Aortic valve disorders Nonrheumatic aortic valve stenosis Aortic valve disorders documented in this encounter Care Teams Hose Sprayer Relationship Specialty Start Date End Date Vanessa Christian, KILN OPERATOR PCP - General Family Medicine 10/21/23 05/26/24 documented as of this encounter
--- OUTSIDE RECORDS SUMMARY | 2024-09-24 10:14 | XMS_ITS | Encounter Summary ---
Author Organization [facility] [address] Care Team Providers Care Associate Director Career Services Name Role Phone Vanessa Christian APRN Primary [...] filedocumented in this encounter Care Teams Associate Director Career Services Relationship Specialty Start Date End Date Vanessa Christian APRN PCP - General Family Medicine 10/21/23 05/26/24 documented as of this encounter
--- OUTSIDE RECORDS SUMMARY | 2024-09-24 10:14 | XMS_ITS | Encounter Summary ---
Author Organization [facility] [place] [address] Care Team Providers Care Healthcare Educator Name Role Phone Vanessa Christian Lane DOTSON Primary Care Provider [phone] Encounter Details Date Type Department Care Team (Late st Contact Info) Description 01/09/2024 2:30 PM EDT Clinical Support Same Day at [facility] [place] [id number] Social History Tobacco Use Types Packs/Day Years [...] for a video about [facility] cardiac surgery. Instructed to bring [...] on filedocumented in this encounter Care Teams Healthcare Educator Relationship Specialty Start Date End Date Vanessa Christian APRN PCP - General Family Medicine 10/21/23 05/26/24 documented as of this encounter
--- OUTSIDE RECORDS SUMMARY | 2024-09-24 10:14 | XMS_ITS | Encounter Summary ---
Author Organization [facility] [place] [address] Care Team Providers Care Machine Setter Automatic Name Role Phone Victor M Lafleur MD Primary Care Provider [phone] Encounter Details Date Type Department Care Team (Late st Contact Info) Description 09/26/2023 Abstract Cardiology at [address] [address] Karen Billy, RN Nonrheumatic aortic [...] face documented in this encounter Care Teams Machine Setter Automatic Relationship Specialty Start Date End Date Victor M Lafleur MD PCP - General 10/02/13 10/20/23 documented as of this encounter
--- OUTSIDE RECORDS SUMMARY | 2024-09-24 10:14 | XMS_ITS | Encounter Summary ---
Author Organization [facility] Address [facility] [place] [address] Care Team Providers Care Agriculture Teacher Name Role Phone Vanessa Christian MAURI Primary Care Provider [phone] Encounter Details Date Type Department Care Team (Latest Contact Info) Description 01/09/2024 3:02 PM EDT - 01/09/2024 11:59 PM EDT Hospital Encounter XRay at [address] [place] [address] Zak Farmer MD [facility] [place] [address] Nonrheumatic aortic valve stenosis Discharge Disposition: Home [...] have questions please contact the health care companion that requested your imaging first. ? Electronically signed by: Toby Dave MD, [facility] ([phone]), at 01/09/2024 3:11 PM Narrative 01/09/2024 3:11 [...] who have questions please contactthe health care companion that requested your imaging first. Electronically signed by: Toby Dave MD, [facility]([phone]), at 01/09/2024 3:11 PM Zak Farmer MD IMG DX ORDERABLES documented in this encounter Visit Diagnoses Diagnosis Nonrheumatic aortic valve stenosis Aortic valve disorders documented in this encounter Care Teams Agriculture Teacher Relationship Specialty Start Date End Date Vanessa Christian APRN PCP - General Family Medicine 10/21/23 05/26/24 documented as of this encounter
--- OUTSIDE RECORDS SUMMARY | 2024-09-24 10:14 | XMS_ITS | Encounter Summary ---
Author Organization [facility] [place] [address] Care Team Providers Care Low Voltage Electrician Name Role Phone Vanessa Christian APRN Primary Care Provider [phone] Encounter Details Date Type Department Care Team (Late st Contact Info) Description 12/26/2023 Notes Only Cardiology at [address] [place] [address] Neftali Ernandez MD [facility] [place] [address] Social History Tobacco Use Types Packs/Day Years [...] 1:37 PM EDT Echocardiogram images reviewed from [facility]. Indeed, the aortic valve appears severely stenotic. Cannotrule out bicuspid valve documented in this encounter Plan of Treatment Not on file documented as of this encounter Visit Diagnoses Not on filedocumented in this encounter Care Teams Low Voltage Electrician Relationship Specialty Start Date End Date Vanessa Christian APRN PCP - General Family Medicine 10/21/23 05/26/24 documented as of this encounter
--- OUTSIDE RECORDS SUMMARY | 2024-09-24 10:14 | XMS_ITS | Encounter Summary ---
Author Organization [place] [address] Care Team Providers Care Crop Setting Out Machine Operator Name Role Phone Aparna Jordan MAURI Primary Care Provider [phone] Reason for Visit * Auth/Cert (Routine) Specialty [...] GRAFT (WRVU 7.93) Hayder Graham MD [facility] [place] [address] [facility] Referral ID Status Reason Start Date Expiration Date Visits Re quested Visits Authorized [id number] 1 1 Encounter Details Date Type Department Care Team (Late st Contact Info) Description 02/17/2024 7:30 AM EDT - 02/17/2024 1:26 PM EDT Surgery [place] [id number] Hayder Graham MD [facility] [place] [address] ENDOSCOPIC HARVEST VEIN(S) FOR CABG (WRVU 0.31) [...] Patient Age: 63 y.o. Birthdate: 1960 Language: Upper Sorbian Race: White Ethnicity: Not nor Admit Date: 02/17/2024 Discharge Date: 02/24/24 Attending Physician: Hayder Graham MD Follow-up Recommendations for Providers: Please continue routine management of cardiovascular risk factors including blood pressure, lipids,glucose, etc. Please note any changes to medications. Patient to follow up with PCP, Aparna Jordan APRN, in 1-2 weeks. Patient to follow up with Cadd Technician, Neftali Ernandez MD , in 2 weeks. Patient to follow up with Cardiac Surgeon, Dr. Hayder Graham, with a chest x-ray, EKG, and Echo. Inpatient Provider Contact Information: [facility] Section of Cardiac Surgery [facility] [address] FAX [phone] Discharge Diagnoses (Hospital Problems) Primary Diagnoses: /CAD [...] insufficiency. He has glaucoma. He used to [employer] until about 15 years ago. He has undergone prior herniorrhaphy. 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 Major Procedures/Operations: 02/17/24 s/p avr/cabgx3 CABG x 3 JOSE->LAD SVG->dRCA SVG->OM1 EVH from LLE AVR with a 23 mm Inspiris Bioprosthesis Hospital Course: Karlos Garcia was admitted to [facility] on 02/17/2024 via the Same [...] Graham and/or the Cardiac Surgery Physician Manager Programs Team may be reached at . Antibiotic [...] Hayder Graham. You may use a [place] Track or treadmill but avoid any pulling [...] while being managed by your PCP and/or Cadd Technician. For future medication refills, please refer to your PCP and/or Cadd Technician after your discharge from our service. Thank you REMOVE CHEST TUBE SUTURES ON OR AFTER 03/02/24 Home oxygen therapy: N/A Follow up appointments: You should follow up with your PCP, Aparna Jordan APRN, in 1-2 weeks. Our office will schedule an appointment with your Cadd Technician, Neftali Ernandez MD , in 2 weeks. You have an appointment with your Cardiac Surgeon, Dr. Hayder Graham, 4 weeks with a chest x-ray, EKG, and Echo before your appointment. Cardiac Rehabilitation: Karlos Garcia was seen regarding participation in the outpatient Phase 2Cardiac Rehabilitation at [facility]. The patient agrees to a referral to this program. The referral will be sent at discharge and the patient should be contacted by the Program within 1- 2 weeks from discharge. Future Appointments and Orders Future Orders Complete By Expires Echocardiogram Transthoracic [14486 CPT(R)] 03/26/2024 09/25/2024 Process Instructions: Scheduling Instructions: Questions: Where will study be performed?: [facility] Clinics Does the patient have Congenital Heart Disease?: Does patient require sedation?: Sedation rationale: XR Chest PA & Lateral (Generic) [88299 79364 Custom] 03/26/2024 09/25/2024 Process Instructions: Scheduling Instructions: Questions: Portable exam?: Reason for exam and clinical history: s/p avr/cabg Clinical information / jerome questions for radiologist: Stat read required?: Date of injury if applicable: Requested Time: Where will study be performed?: [facility] Radiology Referral to Cardiac Rehab [WWS320 Custom] As directed Process Instructions: If no progress note charted, please enter Clinical details in comments. Scheduling Instructions: Questions: My question or request is: s/p AVR/CABG. Cardiac rehab at [facility]. Referral to Home Health [REF34 Custom] As directed Process Instructions: If no progress note charted, please enter Clinical details in comments. Scheduling Instructions: Comments: Please evaluate Karlos Garcia for admission to Home Health. [address] Phone Number: Date of : 1960 Inpatient DOCUMENTATION FOR VNA SERVICES (INCLUDING THOSE PATIENTS WITH MEDICARE COVERAGE REQUIRING HOME VNA SERVICES AND/OR HOSPICE SERVICES) PATIENT'S LOCATION: Karlos Garcia [address] [employer] [phone] Jack Prizer's Name: self/family In discussion with the attending physician, it is certified that this patient is under their care and that they, or a Nurse Practitioner, or Physician Manager Programs who is working directly with them, hada [...] AGENCY: [facility] [address] [place] [address] RN orders: Cardiopulmonary assessment, incisional assessment, assess [...] issues please call the Cardiology Office at [phone] FOR MEDICARE ONLY: (please delete this section [...] care: As above. Signed: NEFTALI MENON PA-C [facility] Section of Cardiac Surgery [facility] [address] FAX [phone] Date: 02/24/2024 CC: pAarna Jordan, MAURI Jordan, Aparna Sherman APRN [address] [place] [address] documented in this encounter Discharge Instructions * [...] Graham and/or the Cardiac Surgery Physician Manager Programs Team may be reached at . Antibiotic [...] Hayder Graham. You may use a [place] Track or treadmill but avoid any pulling [...] while being managed by your PCP and/or Cadd Technician. For future medication refills, please refer to your PCP and/or Cadd Technician after your discharge from our service. Thank you REMOVE CHEST TUBE SUTURES ON OR AFTER 03/02/24 Home oxygen therapy: N/A Follow up appointments: You should follow up with your PCP, Aparna Jordan APRN, in 1-2 weeks. Our office will schedule an appointment with your Cadd Technician, Neftali Ernandez MD , in 2 weeks. You have an appointment with your Cardiac Surgeon, Dr. Hayder Graham, 4 weeks with a chest x-ray, EKG, and Echo before your appointment. Cardiac Rehabilitation: Karlos Garcia was seen regarding participation in the outpatient Phase 2Cardiac Rehabilitation at [facility]. The patient agrees to a referral to [...] 0600 and on the weekends please page [phone]. * Eric Barahona PA - 02/23/2024 9:27 [...] 0600 and on the weekends please page [phone]. * Tiffanie Owens, HELICOPTER TECHNICIAN - 02/22/2024 2:48 PM EDT Physical Therapy [...] d/c for 10 days. 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 He works Precautions/Special Considerations: [...] LRAD and supervision Time IN / OUT: 7524-9990 Total Time: 30 minutes; TEFx2 Tiffanie Owens Pager: [phone] Physical Therapy Inpatient Rehabilitation Department * Romeo [...] 0600 and on the weekends please page [phone]. * Kelley Hinson HELICOPTER TECHNICIAN - 02/21/2024 10:15 AM EDT Physical Therapy [...] d/c for 10 days. 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 He works Precautions/Special Considerations: [...] LRAD and supervision Time IN / OUT: 5072-5810 Total Time: 25 minutes; TEF 2 Kelley Hinson PTA Pager: [phone] Physical Therapy Inpatient Rehabilitation Department * Louisa [...] 0600 and on the weekends please page [phone]. * Kelley Hinson PTA - 02/20/2024 3:32 [...] at that time Kelley Hinson PTA Pager: [phone] Physical Therapy Inpatient Rehab Department * Louisa [...] 0600 and on the weekends please page [phone]. * Maris Benavides, PT - 02/19/2024 11:22 [...] d/c for 10 days. 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 Precautions/Special Considerations: [...] outlined inthis evaluation. MARIS BENAVIDES, PT Pager: [phone] Physical Therapy Inpatient Rehabilitation Department Time IN / OUT: 3349-0807 Total Time: 38 (eval) minutes; * Antonio [...] 0600 and on the weekends please page [phone]. * Minnie Begum PA - 02/18/2024 8:25 [...] 0600 and on the weekends please page [phone]. * Kim Ha RCP - 02/17/2024 2:25 [...] plan since last visit. Hayder Graham MD [phone] Source Note - Hayder Graham MD - [...] given written informed consent. Hayder Graham MD [phone] * Hayder Graham MD - 02/17/2024 7:00 [...] given written informed consent. Hayder Graham MD [phone] documented in this encounter Miscellaneous Notes * [...] for follow-up Home Health & Hospice, [address] [place] [id number] Cardiac Rehab, [address] [place] [id number] Transportation: family or friend will provide Functional status prior to admission: Independent Home Environment: Others in the home: alone. Current Living Arrangements: home/apartment/condo. Accessibility Concerns:a few steps to enter 1 floor home. Current Functional Ability: Assistive Person and Equipment DME used at home: none DME Needed at Discharge: N/A Patient is insured through: Primary Insurance: [employer] Payor: [facility] / Plan: [facility] PPO / Product Type: *No [...] pain managed with scheduled Tylenol. Worked with [employer]. Ambulated in the roque multiple times during [...] anticipated Patient is insured through: Primary Insurance: [facility] Payor: [facility] / Plan: [facility] PPO / Product Type: *No [...] Agency Referrals: [facility] [address] [place] [address] Transportation: family or friend will provide Barriers to discharge: Discharge planning Plan going forward: Service Care Management will continue to follow and assist with discharge planning and coordination of care as indicated. Anticipated Date of Discharge: 02/22/2024 Rhett Bell RN RN/CM - Cellphone: [phone] Pager: [phone] Covering Service RN/CM * Plan of Care [...] 10:44 AM EDT [facility] CARDIAC REHABILITATION Karlos Garcia was seen today regarding participation in the outpatient Phase 2 Cardiac Rehabilitation at [facility]. The patient agrees to a referral to [...] care in [place] must abide by [place] law. The hierarchy [...] (i) The agent with financial power of chief inspector or a conservator appointed in accordance [...] In the past 12 months has the [place], gas, oil, or water [employer] threatened to shut off services in your [...] [address] [facility] [address] Physical address: [address] [facility], [address] Social & Family Supports: All names listed [...] Information: none noted Health/Prescription Coverage: Primary Insurance: [facility] Payor: [facility] / Plan: [facility] PPO / Product Type: *No Product type* / Secondary Insurance: N/A ; Prescription Coverage: Yes Preferred Pharmacy: [id number] [address] [place] Status: Patient is a : No Primary Care Provider confirmed: Aparna Jordan, MAURI [phone] Patient/Caregiver Goals of Treatment: dc to home Potential Needs for Transition of Care: home health care Agency Referrals: I have met with the patient to: discuss discharge planning needs. provide the [facility], Office of Care Management letter from the County Library Director pertaining to rehab referrals. provide a letter describing our affiliations within the [facility] and educate about their right to choose where referrals are sent. provide a list of Home Health Agencies / Durable Medical Equipment vendors which serve their preferred geographic area. provided patient with [facility] Star Quality Rating handout. They have requested referrals to: [facility] [address] [place] [address] Note routed to a Calender Operator who will communicate referrals to facilities [...] Reina Greene RN CM, BSN, CMGT-BC Ext [phone] * Plan of Care - Binta Trinidad [...] Operative Note Patient Name: Karlos Garcia : [id number] MR#: [id number] Case Date: 02/17/2024 Surgeon: Surgeon(s) and Role: * Hayder Graham MD - Primary * Neftali Menon PA - Physician Manager Programs Preoperative diagnosis: CAD Postoperative diagnosis: CAD, intraoperative [...] Left pleural Disposition: [facility] Condition: doing well without problems Attestation: Case Date: 02/17/2024 I performed this procedure without the involvement of a resident. HAYDER GRAHAM MD 02/17/2024 * Op Note - Hayder Graham MD - 02/17/2024 8:20 AM EDT [facility] Operative Note Patient Name: Karlos Garcia : [id number] MR#: [id number] Case Date: 02/17/2024 Surgeon: Surgeons and Role: * Hayder Graham MD - Primary * Neftali Menon PA - Physician Manager Programs Preoperative diagnosis: CAD Postoperative diagnosis: CAD, intraoperative [...] Left pleural Disposition: [facility] Procedure Description: The patient was brought [...] Aortic Valve Open W Cardiopulmonary Bypass Homogrf/Stent (39534) Yes 02/17/2024 7:28 AM EDT CAD Cabg, Artery-Vein, Two (20992) Yes 02/17/2024 7:28 AM EDT CAD Cabg, Arterial, Single (09388) Yes 02/17/2024 7:28 AM EDT CAD Endoscopy W/Video-Asst Vein Vance, Cabg (33920) Yes 02/17/2024 7:28 AM EDT CAD POCT [...] CHEMISTRY ORDERABLE S [facility] [place] [place] [address] * (ABNORMAL) Basic Metabolic Panel (non-fasting) (02/23/2024 [...] Carpio MD CHEMISTRY ORDERABLES Performing Organization Address [facility] Co de Phone Number [facility] [place] [place] [address] * Potassium (02/22/2024 4:30 AM EDT) Potassium [...] Address [facility] Co de Phone Number [facility] [place] [address] * (ABNORMAL) Basic Metabolic Panel (non-fasting) (02/21/2024 [...] MD CHEMISTRY ORDERABLES [facility] [place] [place] [address] * Lactate, whole blood, send to lab ([facility] (02/21/2024 9:45 AM EDT) Lactate WB 2.0 0.5 - 2.2 mmol/L [facility] Blood 02/21/2024 9:45 AM EDT 02/21/2024 9:52 AM EDT Narrative Resulting Agency Comment Spec In Lab Hayder Graham MD CHEMISTRY ORDERABLE S Performing Organization Address City/[facility]/ZIP Co de Phone Number [facility] [place] [address] * (ABNORMAL) Hepatic Function Panel (02/21/2024 9:45 [...] MD CHEMISTRY ORDERABLE S Performing Organization Address City/[facility]/ZIP Co de Phone Number [facility] [place] [address] * Lipase (02/21/2024 9:45 AM EDT) Pathologist [facility] Lipase 56 0 - 60 unit/L [facility] Blood 02/21/2024 9:45 AM EDT 02/21/2024 9:52 AM EDT Narrative Resulting Agency Comment Spec In Lab Hayder Graham MD CHEMISTRY ORDERABLE S Performing Organization Address [facility] Co de Phone Number [facility] [place] [place] [address] * Amylase (02/21/2024 9:45 AM EDT) Amylase 69 28 - 100 unit/L [facility] Blood 02/21/2024 9:45 AM EDT 02/21/2024 9:52 AM EDT Narrative Resulting Agency Comment Spec In Lab Hayder Graham MD CHEMISTRY ORDERABLE S Performing Organization Address [facility] de Phone Number [facility] [place] [address] * Potassium (02/21/2024 3:08 AM EDT) Pathologist [...] Address [facility] Co de Phone Number [facility] [place] [address] * XR Chest PA & Lateral (Generic) (02/20/2024 10:19 AM EDT) WORKSTATION ID [id number] RAD Anatomical Region Laterality Modality Chest N/A Digital Radiogra phy Impressions 02/20/2024 1:11 PM EDT Small pleural effusions. No pneumothorax Thank you for letting us participate in the care of this patient. ??If you are a health care provider and have any questions regarding this report, please contact the number below. ??For patients who have questions please contact the health lead care manager that requested your imaging first. ? Electronically signed by: Rogerio Cruz MD, [facility] ??([phone]), at 02/20/2024 1:11 PM Narrative 02/20/2024 1:11 PM EDT EXAMINATION: XR CHEST PA AND LATERAL (GENERIC) CLINICAL HISTORY: s/p AVR/CABGx3 TECHNIQUE: PA and lateral views of the chest COMPARISON: 02/17/2024 FINDINGS: Support devices: Interval removal of [place] catheter, endotracheal tube and mediastinal chest tubes The cardiac silhouette is stable status post median sternotomy, CABG and aortic valve replacement. There are small pleural effusions. No pneumothorax. Procedure Note Rogerio Cruz MD - 02/20/2024 EXAMINATION: XR CHEST PA AND LATERAL (GENERIC) CLINICAL HISTORY: s/p AVR/CABGx3 TECHNIQUE: PA and lateral views of the chest COMPARISON: 02/17/2024 FINDINGS: Support devices: Interval removal of [place] catheter, endotracheal tubeand mediastinal chest tubes The [...] who have questions please contactthe health lead care manager that requested your imaging first. Hayder Graham MD IMG DX ORDERABLES * Scan, Peripheral Blood (02/20/2024 4:23 AM EDT) Plat estimate Decreased [facility] RBC Morphology Normal [facility] Blood 02/20/2024 4:23 AM EDT 02/20/2024 4:42 AM EDT Narrative Resulting Agency Comment Spec In Lab Minnie FRENCH HEMATOLOGY CECILIO ALEMAN [facility] [place] [address] * (ABNORMAL) Differential, Automated (02/20/2024 4:23 AM EDT) Pathologist [facility] Neutrophil % 81.7 % [facility] Neutrophil Absolute 10.37(H) 1.70 - 6.10 x10(3)/mc L [facility] Lymph % 7.4 % [facility] Lymphocytes Abs 0.9 0.9 - 3.2 x10(3)/mc L [facility] Monocyte % 9.7 % [facility] Monocyte Abs 1.2(H) 0.3 - 0.9 x10(3)/mc L [facility] Eos % 0.1 % [facility] [...] HEMATOLOGY CECILIO ALEMAN [facility] [place] [address] * (ABNORMAL) Hemogram (02/20/2024 4:23 AM EDT) White Blood Cell 12.7(H) 4.0 - 9.5 x10(3)/[facility] LABORATORY Red Blood Cell 4.26(L) 4.58 - 5.54 x10(6)/[facility]ATORY Hemoglobin 12.3(L) 13.7 - 16.5 g/dL [facility] Hematocrit 37.1(L) 40.5 - 48.5 % [facility] Mean Cell Volume 87.1 82.9 - 93.1 [facility] Mean Cell Hemoglobin 28.9 27.5 - 32.1 pg [facility] Mean Cell Hemoglobin Concentration 33.2 32.0 - 35.7 g/dL [facility] Platelet 88(L) 145 - 357 x10(3)/[facility] LABORATORY RDW Standard Deviation 43.5 36.0 [...] HEMATOLOGY CECILIO ALEMAN [facility] [place] [address] * (ABNORMAL) Basic Metabolic Panel (non-fasting) (02/20/2024 [...] Resulting Agency Comment Spec In Lab Hayder Grahma MD CHEMISTRY ORDERABLE S Performing Organization Address City/[facility]/ZIP Co de Phone Number [facility] [place] [address] * Potassium (02/19/2024 3:57 AM EDT) Potassium [...] Address [facility] Co de Phone Number [facility] [place] [address] * POCT Glucose (02/18/2024 8:24 AM EDT) Glucose, POC 157 65 - 199 mg/dL [facility] Comment: Supplemental ranges: <140 mg/dL before meals <180 mg/dL all other times of the day Blood 02/18/2024 8:24 AM EDT 02/18/2024 8:24 AM EDT Hayder Graham MD POINT OF CARE TEST ORDERABLES Performing Organization Address [facility]/ZIP Co de Phone Number [facility] [place] [address] * Scan, Peripheral Blood (02/18/2024 1:40 AM EDT) Plat estimate Decreased [facility] RBC Morphology Normal [facility] Blood 02/18/2024 1:40 AM EDT 02/18/2024 1:56 AM EDT Narrative Resulting Agency Comment Spec In Lab Neftali FRENCH HEMATOLOGY ORDER OLE [facility] [place] [address] * (ABNORMAL) Differential, Automated (02/18/2024 1:40 AM EDT) Neutrophil % 87.1 % [facility] Neutrophil Absolute 15.03(H) 1.70 - 6.10 x10(3)/mc L [facility] Lymph % 3.0 % [facility] Lymphocytes Abs 0.5(L) 0.9 - 3.2 x10(3)/mc L [facility] Monocyte % 9.1 % [facility] Monocyte Abs 1.6(H) 0.3 - 0.9 x10(3)/mc L [facility] Eos % 0.0 % [facility] [...] HEMATOLOGY ORDER OLE [facility] [place] [address] * (ABNORMAL) Hemogram (02/18/2024 1:40 AM EDT) [...] HEMATOLOGY ORDER OLE [facility] [place] [place] [address] * (ABNORMAL) Basic Metabolic Panel (non-fasting) (02/18/2024 [...] CHEMISTRY ORDERABLE S [facility] [place] [address] * (ABNORMAL) Troponin (02/18/2024 1:40 AM EDT) [...] Hospital Laboratory Test Catalog Reference: Fourth [place] Definition of Myocardial Infarction. Journal of the [place] [employer] 2018;72:5454-6054 Blood 02/18/2024 1:40 AM EDT 02/18/2024 1:56 AM EDT Narrative Resulting Agency Comment Spec In Lab Hayder Graham MD CHEMISTRY ORDERABLE S [facility] [place] [address] * POCT Glucose (02/17/2024 8:13 PM EDT) Glucose, POC 142 65 - 199 mg/dL [facility] Comment: Supplemental ranges: <140 mg/dL before meals <180 mg/dL all other times of the day Blood 02/17/2024 8:13 PM EDT 02/17/2024 8:13 PM EDT Hayder Graham MD POINT OF CARE TEST ORDERABLES Performing Organization Address [facility] Co de Phone Number [facility] [place] [place] [address] * POCT Glucose (02/17/2024 5:42 PM EDT) Glucose, POC 160 65 - 199 mg/dL [facility] Comment: Supplemental ranges: <140 mg/dL before meals <180 mg/dL all other times of the day Blood 02/17/2024 5:42 PM EDT 02/17/2024 5:42 PM EDT Hayder Graham MD POINT OF CARE TEST ORDERABLES Performing Organization Address [facility] Co de Phone Number [facility] [place] [address] * Hemoglobin (02/17/2024 5:42 PM EDT) [facility] Signature Hemoglobin 13.7 13.7 - 16.5 g/dL [facility] Blood 02/17/2024 5:42 PM EDT 02/17/2024 6:10 PM EDT Narrative Resulting Agency Comment Spec In Lab Hayder Graham MD HEMATOLOGY ORDERABL ES Performing Organization Address [facility] Co de Phone Number [facility] [place] [place] [address] * Potassium (02/17/2024 5:42 PM EDT) [facility] Signature Potassium 4.3 3.5 - 5.0 [...] CHEMISTRY ORDERABLE S [facility] [place] [address] * (ABNORMAL) BLOOD GAS 2 ARTERIAL (02/17/2024 [...] CARE TEST ORDERABLES [facility] [place] [place] [address] * XR Chest One View (02/17/2024 1:44 PM EDT) [facility] WORKSTATION ID [id number] DH RAD Anatomical Region Laterality Modality Chest N/A Digital Radiogra phy Impressions 02/17/2024 2:12 PM EDT 1. ??No definite pleural fluid collection or pneumothorax. 2. ??Right IJ [place] catheter tip terminates in a descending branch [...] have questions please contact the health lead care manager that requested your imaging first. ? Electronically signed by: Denzel Hankins MD, [facility] ??([phone]), at 02/17/2024 2:12 PM Narrative 02/17/2024 2:12 PM EDT EXAMINATION: XR CHEST ONE VIEW CLINICAL HISTORY: s/p avr/cabg eval effusions TECHNIQUE: 1 view of the chest COMPARISON: Chest x-ray 01/09/2024, chest CT 02/03/2024 FINDINGS: ET tube tip terminates 5.2 cm above the carlos. Right IJ [place] catheter tip terminates in a descending branch [...] 5.2 cm above the carlos. Right IJ [place]anzcatheter tip terminates in a descending branch of [...] fluid collection or pneumothorax. 2. Right IJ [place] catheter tip terminates in a descending branch ofthe right pulmonary artery. Suggest catheter retraction. 3. Additional support lines and tubes as above. Thank you for letting us participate in the care of this patient. If youare a health care provider and have any questions regarding this report,please contact the number below. For patients who have questions please contactthe health lead care manager that requested your imaging first. [...] CARE TEST ORDERABLES [facility] [place] [address] * (ABNORMAL) Coox2 (02/17/2024 1:21 PM EDT) [...] OF CARE TEST ORDERABLES Performing Organization Address City/[facility]/ZIP Co de Phone Number [facility] [place] [address] * (ABNORMAL) BLOOD GAS 2 ARTERIAL (02/17/2024 [...] Address [facility] Co de Phone Number [facility] [place] [address] * (ABNORMAL) Fibrinogen (02/17/2024 12:10 PM EDT) [...] Address [facility] Co de Phone Number [facility] [place] [address] * (ABNORMAL) Thrombin time (02/17/2024 12:10 PM [...] Address [facility] Co de Phone Number [facility] [place] [address] * APTT (02/17/2024 12:10 PM EDT) Partial [...] Address [facility] Co de Phone Number [facility] [place] [address] * (ABNORMAL) Prothrombin Time (02/17/2024 12:10 PM [...] HEMATOLOGY ORDERABLE S [facility] [place] [address] * (ABNORMAL) Hemogram (02/17/2024 12:10 PM EDT) [...] HEMATOLOGY ORDERABLE S [facility] [place] [place] [address] * (ABNORMAL) BLOOD GAS 2 ARTERIAL (02/17/2024 [...] CARE TEST ORDERABLES [facility] [address] [place] [address] * (ABNORMAL) BLOOD GAS 2 ARTERIAL (02/17/2024 [...] Address [facility] de Phone Number [facility] [place] [address] * (ABNORMAL) Hemoglobin and Hematocrit, blood (02/17/2024 11:04 AM EDT) Hemoglobin 9.6(L) 13.7 - 16.5 g/dL [facility] Hematocrit 28.0(L) 40.5 - 48.5 % [facility] Comment: This result has been called to AOLNDRA PAGAN by Eddie López on 02 17 2024 at 1120, and has been read back. Blood 02/17/2024 11:0 4 AM EDT 02/17/2024 11:12 AM EDT Narrative Resulting Agency Comment Spec In Lab Hayder Graham MD HEMATOLOGY ORDERABL ES Performing Organization Address [facility] de Phone Number [facility] [place] [address] * (ABNORMAL) Platelet count (02/17/2024 11:04 AM EDT) Platelet 106(L) 145 - 357 x10(3)/mc L [facility] Immature Plt % 1.6 0.0 - 7.4 % [facility] Comment: Limitation of the Immature Platelet Fraction (IPF)-May be less reliable when the platelet count is less than 95d976/uL due to statistical imprecision. The IPF value [...] in a decreased state of production. References: [employer] The Clinical Value of the Immature Platelet Fraction (IPF) in Cell Recovery Document Number 10-1143 03/2011 [employer] The Role of the Immature Platelet Fraction (IPF) in the Differential Diagnosis of Thrombocytopenia, Document MKT-10-1209 V002/15/14 Blood 02/17/2024 11:0 4 AM EDT 02/17/2024 11:12 AM EDT Narrative Resulting Agency Comment Spec In Lab Hayder Graham MD HEMATOLOGY ORDERABL ES Performing Organization Address City/[facility]/ZIP Co de Phone Number [facility] [place] [address] * (ABNORMAL) Fibrinogen (02/17/2024 11:04 AM EDT) [...] MD HEMATOLOGY ORDERABL ES Performing Organization Address City/[facility]/ZIP Co de Phone Number [facility] [place] [address] * (ABNORMAL) BLOOD GAS 2 ARTERIAL (02/17/2024 [...] TEST ORDERABLES [facility] [place] [address] * (ABNORMAL) BLOOD GAS 2 ARTERIAL (02/17/2024 [...] CARE TEST ORDERABLES Performing Organization Address City/State/[facility] Co de Phone Number [facility] [place] [address] * Surgical Pathology Report (02/17/2024 10:01 AM EDT) Final Diagnosis [id number] ? Location: [facility]; [facility]; The signing pathologist has (i) examined the relevant preparation(s) for the specimen(s) and (ii) rendered or confirmed the diagnosis(es). . ?Surgical Pathology DIAGNOSIS Aortic valve leaflets, excision: Valve leaflets with myxoid degeneration, nodular fibrosis and dystrophic calcifications. Electronically signed by: ?Lindsay FERNANDEZ, Livier Gonzalez Verified: ??02/24/2024 13:49 ??Pathologist Performed at: ??-[facility] Dept. of Pathology, [place] [address] County Library Director: Job Brewer MD, FCAP, ??CLIA Certificate: [id number] SPECIMEN(S) SUBMITTED A - Aortic Valve Leaflets, [...] Sections Processing Blocks submitted for decalcification: A1. Pest Controller Assistant sections in 1 cassette labeled A1. ??ajw 02/24/2024 1:49 PM EDT [facility] AORTIC STRUCTURE / Unknown 02/17/2024 10:01 AM EDT 02/17/2024 10:01 AM EDT Hayder Graham MD PATHOLOGY/[place] [address] * Specimen to Pathology (02/17/2024 10:01 AM EDT) AP Specimen 02/17/2024 10:0 1 AM EDT 02/17/2024 10:01 AM EDT Narrative [facility] - 02/17/2024 10:01 AM EDT Specimen requisition ordered. ??Separate Pathology report to follow Hayder Graham MD PATHOLOGY/CYTOLOGY ORDERABLES [facility] [place] [place] [address] * (ABNORMAL) BLOOD GAS 2 ARTERIAL (02/17/2024 [...] CARE TEST ORDERABLES [facility] [place] [place] [address] * (ABNORMAL) BLOOD GAS 2 VENOUS (02/17/2024 9:34 AM EDT) pH, Venous 7.22(Criti marquez) 7.32 - 7.42 [facility] Comment:Noted by instrument inspector. PCO2, Venous 43 41 - 51 mmHg [facility] Comment:Noted by instrument inspector. PO2, Venous 57(H) 25 - 40 mmHg [facility] Comment:Noted by instrument inspector. Bicarbonate, Venous 17.1 mmol/L [facility] Comment:Noted by instrument inspector. Base Excess, Venous -10.6 mmol/L [facility] Comment:Noted by instrument inspector. Hgb Blood Gas 11.2(L) 13.7 - 16.5 g/dL [facility] Comment:Noted by instrument inspector. Oxyhemoglobin, Venous 86.5 % [facility] Comment:Noted by instrument inspector. Carboxyhemoglob in, Venous 0.3 % [facility] Comment: Noted by instrument inspector. Nonsmokers: 0.5-1.5% COHB Smokers: Variable, but usually less than 10% Toxic: 20-30% COHB Lethal: Greater than 60% COHB Methemoglobin, Venous 0.0 <=1.5 % [facility] Comment:Noted by instrument inspector. Na Whole Blood 156(H) 135 - 145 mmol/L [facility] Comment:Noted by instrument inspector. [...] [facility] Comment:Noted by instrument inspector. Gluc Whole Bld 132 65 - 199 mg/dL [facility] Comment: Noted by instrument inspector. Diabetes: >=200 mg/dL plus symptoms Lactate WB 1.0 0.5 - 2.2 mmol/L [facility] Comment:Noted by instrument inspector. Blood Gas Source Venous [facility] Blood 02/17/2024 9:34 AM EDT 02/17/2024 9:34 AM EDT Hayder Graham MD POINT OF CARE TEST ORDERABLES [facility] [place] [place] [address] * (ABNORMAL) BLOOD GAS 2 ARTERIAL (02/17/2024 [...] OF CARE TEST ORDERABLES Performing Organization Address City/[facility]/ZIP Co de Phone Number [facility] [place] [address] * POCT Glucose (02/17/2024 6:38 AM EDT) Glucose, POC 98 65 - 199 mg/dL [facility] Comment: Supplemental ranges: <140 mg/dL before meals <180 mg/dL all other times of the day Blood 02/17/2024 6:38 AM EDT 02/17/2024 6:38 AM EDT Hayder Graham MD POINT OF CARE TEST ORDERABLES Performing Organization Address [facility] Co de Phone Number [facility] [place] [address] * Transesophageal Echo/OR (02/17/2024 6:33 AM EDT) [...] [facility]-operative [facility] [...] 6-14 large 15-16 diffuse Reading Physician Tara Yokr MD 02/17/2024, 4: 08 PM Ordering Physician: [...] Reilly Vincent, RN) 0900 (Stopped - Provider: Msihel Merrill, COLBY) PRN Medication Order 02/22/2024 02/23/2024 [...] Routine documented in this encounter Care Teams Crop Setting Out Machine Operator Relationship Specialty Start Date End Date Aparna Jordan APRN PCP - General Family Medicine 10/21/23 05/26/24 documented as of this encounter
--- OUTSIDE RECORDS SUMMARY | 2024-09-24 10:14 | XMS_ITS | Encounter Summary ---
Author Organization [facility]ly [facility] [place] [address] Care Team Providers Care Sound Equipment Mechanic Name Role Phone Vanessa Christian MAURI Primary Care Provider [phone] Reason for Visit * Auth/Cert (Routine) Specialty [...] [facility] [place] [place] [address] [facility] Referral ID Status Reason Start Date Expiration Date Visits Re quested Visits Authorized [id number] 1 1 Encounter Details Date Type Department Care Team (Latest Contact Info) Description 02/03/2024 8:06 AM EDT - 02/03/2024 2:54 PM EDT Hospital En[place] [address] Rima Dickinson MD [facility] [place] [place] [address] Screening for cardiovascular condition; Aortic valve stenosis, [...] lbs Follow-up Visits Follow up with your bar catcher in 2-4 weeks Access Site 'Black and Blue' and tenderness is expected during the first week Call if you noted a mass (lump) greater than the size of a ellis Call Office with any Questions and if you have any of the following Clarence Lane M.D Interventional Flying I Instructor Differential Repairer #: [phone] * Attachments The following attachments cannot be sent through Care Everywhere. * CAD (Coronary Artery Disease): General Info (Liberian) * Coronary Angiogram: Post-op ([place]iberian) documented in this encounter Medications at Time [...] Pre-Procedure H&P Update: Cardiac Catheterization Karlos Anthony [id number] 1960 Chief Complaint: Aortic stenosis HPI: Mr. [...] is inthe chart Clarence Lane MD Interventional Flying I Instructor 02/03/24 11:48 AM documented in this encounter Miscellaneous Notes * Brief Op Note - Clarence Lane MD - 02/03/2024 12:51 PM EDT Preliminary Cardiac Catheterization Procedure Note: Patient Name: Karlos Anthony : [id number] MR#: [id number] Case Date: 02/03/2024 Differential Repairer: Surgeon(s) and Role: * Saira Lua MD [...] Other Narrative 02/12/2024 3:47 PM EDT ?[facility] ? Cardiac Catheterization/Intervention Report ? Patient Name: Patenaude, Karlos ? Procedure Date: 02/03/2024 ? A #: [id number] ? Primary Physician: Mogadam, Emad ? Case #: [id number] ? File Name: [id number] ? Catheterization Order Number: [id number] ? [facility] ? Final Report [place], [place] ? Patient Name: ? Karlos Anthony ? ID#: ?[id number] ? : ?1960 ? Procedure Date: ? [...] Note Saira Lua MD - 02/12/2024 [facility] Cardiac Catheterization/Intervention Report Patient Name: Karlos Anthony Procedure Date: 02/03/2024 A #: [id number] Primary Physician: Saira Lua Case #: [id number] File Name: [id number] Catheterization Order Number: [id number] [facility] FinalReport [place], [place] Patient Name: Karlos Anthony ID#:[id number] :1960 Procedure Date: February 03, 2024 Case [...] was designated as ASA Class III. The [facility] clinical frailty scale is [...] (Bezet) 372 ms MUSE SYSTEM Calculated P Koh[place] 59 degrees MUSE SYSTEM Calculated R [place]ler 34 degrees MUSE SYSTEM Calculated T [place]ler 63 degrees MUSE SYSTEM INTERPRETATION Sinus bradycardia [...] MD) documented in this encounter Care Teams Sound Equipment Mechanic Relationship Specialty Start Date End Date Vanessa Christian APRN PCP - General Family Medicine 10/21/23 05/26/24 documented as of this encounter
--- OUTSIDE RECORDS SUMMARY | 2024-09-24 10:14 | XMS_ITS | Encounter Summary ---
Author Organization [facility] [place] [address] Care Team Providers Care Curtain Cleaner Name Role Phone Vanessa Christian Lane DOTSON Primary Care Provider [phone] Encounter Details Date Type Department Care Team (Latest Contact Info) Description 01/09/2024 3:00 PM EDT [place] [id number] Nonrheumatic aortic valve stenosis Social History Tobacco [...] stenosis TYPE AND SCREEN, SDP (FUTURE SURGERY, [facility] ONLY) Routine 01/09/2024 2:58 [...] Status (01/09/2024 2:58 PM EDT) Pathologist [facility] ABORH Recheck Order Order Placed [facility] ABORH Type Recheck Completed [facility] Blood 01/09/2024 2:58 PM EDT 01/09/2024 3:08 PM EDT Narrative Resulting Agency Comment Spec In Lab Zak Farmer MD BLOOD BANK LAB ORDE ASH [facility] [place] [address] * Differential, Automated (01/09/2024 2:58 PM EDT) Neutrophil % 70.5 % [facility] Neutrophil Absolute 4.34 1.70 - 6.10 x10(3)/[facility] LABORAT[facility] Lymph % 18.9 % [facility] Lymphocytes Abs 1.2 0.9 - 3.2 x10(3)/[facility] Monocyte % 8.0 % [facility] Monocyte Abs 0.5 0.3 - 0.9 x10(3)/[facility] Eos % 1.6 % [facility] Eosinophils Abs 0.1 0.0 - 0.4 x10(3)/[facility] Basophil % 0.5 % [facility] Baso Absolute 0.0 0.0 - 0.1 x10(3)/[facility] Immature Gran % 0.50 % WHITE [...] [facility] [place] [address] * Hemogram (01/09/2024 2:58 PM EDT) White [...] Standard Deviation 39.2 36.0 - 45.0 [facility] LABORATORY RDW coefficient of variation 12.6 11.4 - 13.8 % [facility] Mean Platelet Volume 9.5 7.6 - 12.9 [facility] LABORATORY NRBC% auto 0.0 % [facility] NRBC Absolute 0.000 0.000 - 0.000 x10(3)/[facility]AT[facility] Blood 01/09/2024 2:58 PM EDT 01/09/2024 3:03 PM EDT Narrative Resulting Agency Comment Spec In Lab Zak Farmer MD HEMATOLOGY ORDERABL ES [facility] [place] [address] * Basic Metabolic Panel (non-fasting) (01/09/2024 2:58 [...] CHEMISTRY ORDERABLE S Performing Organization Address [facility] Co de Phone Number [facility] [place] [address] * Hepatic Function Panel (01/09/2024 2:58 PM [...] CHEMISTRY ORDERABLE S Performing Organization Address [facility] Co de Phone Number [facility] [place] [address] * Prothrombin Time (01/09/2024 2:58 PM EDT) [...] [facility]/ZIP Co de Phone Number [facility] [place] [address] * Type and Screen Future Surgery, [facility] ONLY) (01/09/2024 2:58 PM EDT) ABORH Type O NEGATIVE [facility] Patient BB History Not Found [facility] Expires at 2359 on: 02-20-2024 [facility] Ab Screen Interp Negative [facility] Blood 01/09/2024 2:58 PM EDT 01/09/2024 2:58 PM EDT Narrative Resulting Agency Comment Spec In Lab Zak Farmer MD BLOOD BANK LAB ORDE RABLES [facility] [place] [address] documented in this encounter Visit Diagnoses Diagnosis Nonrheumatic aortic valve stenosis Aortic valve disorders documented in this encounter Care Teams Curtain Cleaner Relationship Specialty Start Date End Date Vanessa Christian APRN PCP - General Family Medicine 1/15/24 8/20/24 documented as of this encounter
--- OUTSIDE RECORDS SUMMARY | 2024-09-24 10:14 | XMS_ITS | Encounter Summary ---
[place] [address] Care Team Providers Care Spool Cleaner Hand Name Role Phone Vanessa Christian MAURI Primary Care Provider [phone] Reason for Visit * Auth/Cert (Routine) Specialty [...] W RHC (WRVU 5.9) Rima Dickinson MD [facility] [place] [address] [facility] Referral ID Status Reason Start Date Expiration Date Visits Re quested Visits Authorized [id number] 1 1 Encounter Details Date Type Department Care Team (Late st Contact Info) Description 02/03/2024 10:00 AM EDT - 02/03/2024 11:00 AM EDT [place] [address] Saira Lua MD CARDIAC CATHETERIZATION Social History [...] lbs Follow-up Visits Follow up with your driver in 2-4 weeks Access Site 'Black and Blue' and tenderness is expected during the first week Call if you noted a mass (lump) greater than the size of a ellis Call Office with any Questions and if you have any of the following Clarence Lane M.D Interventional Die Attacher Supervisor Furnace Room #: [phone] * Attachments The following attachments cannot be sent through Care Everywhere. * CAD (Coronary Artery Disease): General Info ([place]) * Coronary Angiogram: Post-op ([place]) documented in this encounter Medications at Time [...] MD - 02/03/2024 11:48 AM EDT [facility] Interventional Cardiology Adult Pre-Procedure H&P Update: Cardiac Catheterization Karlos Anthony [id number] 1960 Chief Complaint: Aortic stenosis HPI: Mr. [...] is inthe chart Clarence Lane MD Interventional Die Attacher 02/03/24 11:48 AM documented in this encounter Miscellaneous Notes * Brief Op Note - Clarence Lane MD - 02/03/2024 12:51 PM EDT Preliminary Cardiac Catheterization Procedure Note: Patient Name: Karlos Anthony : [id number] MR#: [id number] Case Date: 02/03/2024 Supervisor Furnace Room: Surgeon(s) and Role: * Saira Lua MD [...] Narrative 02/12/2024 3:47 PM EDT ?[facility] ? Cardiac Catheterization/Intervention Report ? Patient Name: Patenaude, Karlos ? Procedure Date: 02/03/2024 ? A #: [id number] ? Primary Physician: Mogadam, Emad ? Case #: [id number] ? File Name: [id number] ? Catheterization Order Number: [id number] ? [facility] ? Final Report [place], [place] ? Patient Name: ? Karlos Patenaude ? ID#: ?[id number] ? : ?1960 ? Procedure Date: ? [...] Saira Lua MD - 02/12/2024 [facility] Cardiac Catheterization/Intervention Report Patient Name: Karlos Anthony Procedure Date: 02/03/2024 A #: [id number] Primary Physician: Saira Lua Case #: [id number] File Name: [id number] Catheterization Order Number: [id number] [facility] FinalReport [place], [place] Patient Name: Karlos Antohny ID#:[id number] :1960 Procedure Date: February 03, 2024 Case [...] (Bezet) 372 ms MUSE SYSTEM Calculated P [place] 59 degrees MUSE SYSTEM Calculated R [place] 34 degrees MUSE SYSTEM Calculated T [place] 63 degrees MUSE SYSTEM INTERPRETATION Sinus bradycardia [...] MD) documented in this encounter Care Teams Spool Cleaner Hand Relationship Specialty Start Date End Date Vanessa Chritsian APRN PCP - General Family Medicine 10/21/23 05/26/24 documented as of this encounter
--- OUTSIDE RECORDS SUMMARY | 2024-09-24 10:14 | XMS_ITS | Encounter Summary ---
Author Organization [facility] [place] [address] Care Team Providers Care Purchasing Director Name Role Phone Vanessa Christian APRN Primary Care Provider [phone] Encounter Details Date Type Department Care Team (Late st Contact Info) Description 10/21/2023 Abstract Cardiology at [address] [place] [id number] Adam Mayes RN Social History Tobacco Use [...] on filedocumented in this encounter Care Teams Purchasing Director Relationship Specialty Start Date End Date Vanessa Christian APRN PCP - General Family Medicine 10/21/23 05/26/24 documented as of this encounter
--- OUTSIDE RECORDS SUMMARY | 2024-09-24 10:14 | XMS_ITS | Encounter Summary ---
Author Organization [facility] Address [facility] [place] [address] Care Team Providers Care Assembler Show Motor Name Role Phone Vanessa Christian PAINT PROCESS ENGINEER Primary Care Provider [phone] Reason for Referral * Diagnostic Test (Routine) - Closed Specialty Diagnoses / Procedures Referred By Contac t Referred To Contact Radiology Diagnoses Nonrheumatic aortic valve stenosis Procedures CT Chest wo Contrast (Generic) Louisa Reid PA [facility] CARDIOTHORACIC [place] [address] [facility] [place] [address] Referral ID Status Reason Start Date Expiration Date V isits Requested Visits Authorized [id number] Closed Specialty Service Requested 01/10/2024 07/11/2025 1 1 Encounter Details Date Type Department Care Team (Late st Contact Info) Description 01/09/2024 [place] [address] Zak Farmer MD [facility] CARDIOTHORACIC [place] [address] Nonrheumatic aortic valve stenosis Social History Tobacco [...] wo Contrast (Generic) (02/03/2024 7:44 AM EDT) [employer] WORKSTATION ID [id number] RAD Anatomical Region Laterality Modality Chest Computed [...] by: Rogerio Wright MD, [facility] ([phone]), at 02/03/2024 10:00 AM Narrative 02/03/2024 10:00 [...] nodule along the minor fissure (series 302 [id number]) and a 8 mm right lower lobe [...] by: Rogerio Wright MD, [facility]([phone]), at 02/03/2024 10:00 AM Zak Farmer MD IMG CT ORDERABLES documented in this encounter Visit Diagnoses Diagnosis Nonrheumatic aortic valve stenosis Aortic valve disorders Nonrheumatic aortic valve stenosis Aortic valve disorders documented in this encounter Care Teams Assembler Show Motor Relationship Specialty Start Date End Date Vanessa Christian APRN PCP - General Family Medicine 10/21/23 05/26/24 documented as of this encounter
--- OUTSIDE RECORDS SUMMARY | 2024-09-24 10:14 | XMS_ITS | Data Portability ---
Author Organization [place] - [facility] Address [address] [place] [address] Care Team Providers Care Photography Instructor Name Role Phone APARNA JORDAN Primary Care Provider SOFIA MCALLISTER Dentist Assessment No assessment recorded. Plan of Treatment Reminders Order Date Submit Date Provider Last Modified By Organization Details Last Modified Time Details Appointments None recorded . Lab magnesiu m, serum or plasma 024 12/18/19 24 [email or web address] [facility] (Registration ), [address] [place] [address] [place], [address], 4 14:25:25 BMP, serum or plasma 024 12/18/19 24 [id number] [facility] (Registration ), [address] [place] [address] [place], [address], 4 14:25:24 Referral None recorded . Procedures None recorded . Surgeries None recorded . Imaging None recorded . Medication Orders None recorded . Patient TargetsNo targets recorded. Patient Instructions Encounter Date Encounter Id Patient Instructions Last Modified By Organization Details Last Modified Time 09/19/2023 [id number] SCHEDULE FOLLOW UP IN 3 MONTHS IF YOU DONT HEAR FROM THE CARDIOLOGY DEPT THIS WEEK CALL [facility] DONOR FLOOR TECHNICIAN AND LET THEM KNOW IF YOUR BREATHING GETS WORSE- GO TO THE ER, DONT OVER DO THINGS PHYSICALLY EXPECT A CALL FROM SARA ZAFAR RE: UPDATING YOUR POWER OF CRABBER (NEED 2 WITNESSED SIGNATURES) Not available 09/19/2023 09:25:07 12/18/2023 [id number] Karlos: expect a call from the STruct[place] team at [facility] drink at least 6 [...] 9.3 mg/dL 8.5-10 .1 normal Not Available [address] [place], [address] 12/18/2023 17:09:55 12/18/19 24 12/18/2023 LASIC METAB OLIC PANEL glucose 90 mg/dL 74-106 normal Not Available Baljit montemayor [address] [place], [address] 12/18/2023 17:09:55 12/18/19 24 12/18/2023 LASIC METAB OLIC PANEL BUN 14 mg/dL 7-18 normal Not Available Baljit montemayor [address] [place], [address] 12/18/2023 17:09:55 12/18/19 24 12/18/2023 LASIC METAB OLIC PANEL creatinine 1.0 mg/dL 0.70-1 .30 normal Not Available [address] [place], [address] 12/18/2023 17:09:55 12/18/19 24 12/18/2023 LASIC METAB [...] young er-ag ed adult s. Not Available [address] [place], [address] 12/18/2023 17:09:55 12/18/19 24 12/18/2023 LASIC METAB OLIC PANEL sodium 139 mmol/ L 136-14 5 normal Not Available [address] [place], [address] 12/18/2023 17:09:55 12/18/19 24 12/18/2023 LASIC METAB OLIC PANEL potassium 4.9 mmol/ L 3.5-5. 1 normal Not Available [address] [place], [address] 12/18/2023 17:09:55 12/18/19 24 12/18/2023 LASIC METAB OLIC PANEL chloride 104 mmol/ L 98-107 normal Not Available [address] [place], [address] 12/18/2023 17:09:55 12/18/19 24 12/18/2023 LASIC METAB OLIC PANEL CO2 30.9 mmol/ L 21.0-3 2.0 normal Not Available [address] [place], [address] 12/18/2023 17:09:55 12/18/19 24 12/18/2023 LASIC METAB OLIC PANEL anion gap 4.1 mmol/ L 3-11 normal Not Available [address] [place], [address] 12/18/2023 17:09:55 12/18/19 24 12/18/2023 MAGNE SIUM magnesium 1.8 mg/dL 1.8-2. 4 normal Not Available [address] [place], [address] 12/18/2023 17:09:56 07/27/20 24 07/27/2024 LIPID 2 cholesterol 131 mg/dL <200 Not Available [address] [place], [address] 07/27/2024 11:59:38 07/27/20 24 07/27/2024 LIPID 2 triglyceride 162 mg/dL <150 high Not Available [address] [place], [address] 07/27/2024 11:59:38 07/27/2007/27/2024 LIPID 2 HDL cholesterol 35 mg/dL 40-60 low Not Available Dominique blackburn [address] [place], [address] 07/27/2024 11:59:38 07/27/2007/27/2024 LIPID 2 calculated LDL [...] 18 years or older . Not Available [address] [place], [address] 07/27/2024 11:59:38 07/27/2007/27/2024 COMPR EHENS MADYSON METAB OLIC PANEL calcium 9.2 mg/dL 8.5-10 .1 normal Not Available [address] [place], [address] 07/27/2024 11:59:38 07/27/2007/27/2024 COMPR EHENS MADYSON METAB OLIC PANEL glucose 83 mg/dL 74-106 normal Not Available Baljit montemayor [address] [place], [address] 07/27/2024 11:59:38 07/27/2007/27/2024 COMPR EHENS MADYSON METAB OLIC PANEL BUN 20 mg/dL 7-18 high Not Available Baljit montemayor [address] [place], [address] 07/27/2024 11:59:38 07/27/2007/27/2024 COMPR EHENS MADYSON METAB OLIC PANEL creatinine 1.0 mg/dL 0.70-1 .30 normal Not Available [address] [place], [address] 07/27/2024 11:59:38 07/27/2007/27/2024 COMPR EHENS MADYSON METAB [...] young er-ag ed adult s. Not Available [address] [place], [address] 07/27/2024 11:59:38 07/27/2007/27/2024 COMPR EHENS MADYSON METAB OLIC PANEL total protein 6.8 g/dL 6.4-8. 2 normal Not Available [address] [place], [address] 07/27/2024 11:59:38 07/27/2007/27/2024 COMPR EHENS MADYSON METAB OLIC PANEL albumin 3.5 g/dL 3.4-5. 0 normal Not Available [address] [place], [address] 07/27/2024 11:59:38 07/27/2007/27/2024 COMPR EHENS MADYSON METAB OLIC PANEL bilirubin, total 0.77 mg/dL 0.2-1. 0 normal Not Available [address] [place], [address] 07/27/2024 11:59:38 07/27/2007/27/2024 COMPR EHENS MADYSON METAB OLIC PANEL alk phos 84 U/L 46-116 normal Not Available [address] [place], [address] 07/27/2024 11:59:38 07/27/2007/27/2024 COMPR EHENS MADYSON METAB OLIC PANEL sodium 141 mmol/ L 136-14 5 normal Not Available [address] [place], [address] 07/27/2024 11:59:38 07/27/2007/27/2024 COMPR EHENS MADYSON METAB OLIC PANEL potassium 4.8 mmol/ L 3.5-5. 1 normal Not Available [address] [place], [address] 07/27/2024 11:59:38 07/27/2007/27/2024 COMPR EHENS MADYSON METAB OLIC PANEL chloride 105 mmol/ L 98-107 normal Not Available [address] [place], [address] 07/27/2024 11:59:38 07/27/2007/27/2024 COMPR EHENS MADYSON METAB OLIC PANEL CO2 30.9 mmol/ L 21.0-3 2.0 normal Not Available [address] [place], [address] 07/27/2024 11:59:38 07/27/2007/27/2024 COMPR EHENS MADYSON METAB OLIC PANEL anion gap 5.1 mmol/ L 3-11 normal Not Available [address] [place], [address] 07/27/2024 11:59:38 07/27/2007/27/2024 COMPR EHENS MADYSON METAB OLIC PANEL AST 20 U/L 15-37 normal Not Available Baljit montemayor [address] [place], [address] 07/27/2024 11:59:38 07/27/2007/27/2024 COMPR EHENS MADYSON METAB OLIC PANEL ALT 32 U/L 16-63 normal Not Available Baljit montemayor [address] [place], [address] 07/27/2024 11:59:38 07/27/2007/27/2024 CREAT INE KINAS E creatine kinase 133 U/L 39-308 normal Not Available [facility] [address] , [place], [address] 07/27/2024 11:48:30 09/11/2012/05/2022 trans -thor acic echoc ardio gram (TTE) (PROC ) No observ ation record ed. [email or web address] [facility] Xray [address] , [place], [address], 09/13/2023 09:29:52 09/11/20 23 06/01/2022 XR, hip, unila teral No observ ation record ed. [email or web address] Not Available 2022 09:29:19 09/11/2012/06/2019 , echoc ardio gram No observ ation record ed. 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 [...] [facility] [address], [place], [address] 07/27/2024 18:10:30 Result Notes None recorded. Problems Name Problem SNOMED Code Status Onset Date Resolution Date Notes Provider Name and Address Organization Details Recorded Time Gastroes ophageal reflux disease without esophagi tis 056190209 Active 2022 Problem Code: K21.9; Problem Code Type: ICD-10; Not Available [facility] 4 05:35:57 Glaucoma 55326865 Active 2022 Problem Code: H40.9; Problem Code Type: ICD-10; Not Available [facility] 4 05:35:57 Hyperlip idemia 89553721 Active 2022 Problem Code: E78.5; Problem Code Type: ICD-10; Not Available [facility] 4 05:35:57 [facility] hyperten marisol 30312475 Active 2022 Problem Code: I10; Problem Code Type: ICD-10; Not Available [facility] 4 05:35:57 Pain of left hip joint 75509741616 9100 Active 2022 Problem Code: M25.552; Problem Code Type: ICD-10; Not Available [facility] 4 05:35:57 Idiopath ic osteoart hritis 138306070 Active 2022 Problem Code: M16.12; Problem Code Type: ICD-10; Not Available [facility] 4 05:35:57 Inguinal hernia 891152576 Active 2022 Problem Code: K40.90; Problem Code Type: ICD-10; Not Available [facility] 4 05:35:57 Heart murmur 13281628 Active 2022 Problem Code: R01.1; Problem Code Type: ICD-10; Not Available [facility] 4 05:35:57 Dyspnea 095855951 Active 2022 Problem Code: R06.09; Problem Code Type: ICD-10; Not Available [facility] 4 05:35:57 Chest pain 49485140 Active 2022 Problem Code: R07.89; Problem Code Type: ICD-10; Not Available [facility] 4 05:35:57 Melanocy tic nevus 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 Active 2022 Problem Code: D22.9; Problem Code Type: ICD-10; Not Available [facility] 4 05:35:57 Aortic stenosis , non-rheu matic 269142441 Active 2022 Problem Code: I35.0; Problem Code Type: ICD-10; Not Available [facility] 4 05:35:58 Aortic stenosis , non-rheu matic 134890214 Completed 202208/14/2023 Problem Code: I35.0; Problem Code Type: ICD-10; Not Available [facility] 4 05:35:58 Indigest ion 731830931 Active 2023 GLORIA CAMP LPN null, [facility] 4 08:48:57 Coronary artery bypass grafts x 3 Active 2023 Kelly Duran RN null, [facility] 4 10:30:01 At increase d risk of atrial fibrilla tion 950145049 Active [address], [place], [address] , [facility] 4 13:52:01 Anemia 719911135 Active [address], [place], [address] , [facility] 4 13:54:39 Problem Notes None recorded. Procedures Surgical History Date Name Laterality Status Provider Name and Address Organization Details Recorded Time coronary artery bypass graft completed Hudson Reeder MA [facility] 03/04/2024 14:54:09 Imaging Results Imaging Date Name Status LastModified by Organization Details LastModified Time 12/05/2022 trans-thoracic echocardiogram (TTE) (PROC) completed [address] Xray [address] , [place], [address], 09/13/2023 09:29:52 06/01/2022 XR, hip, unilateral [place] [address] Information not available 09/13/2023 09:29:19 12/06/2019 US, echocardiogram completed [address]- Cardiology [address] [place] [address] [place], [address], 09/13/2023 09:28:49 07/27/2024 x-ray imaging report completed INTERFACE [address] [place], [address] 07/27/2024 18:10:30 Procedure Notes None recorded. Medical [...] es. Take 1 hr prior. Started by [facility] Not Available Not Available [...] BY MOUTH DAILY 02/24 completed stopped by [facility] Not Available Not Available [...] hours by oral route as needed. active [facility] Not Available Not Available No t Available Aspirin Childrens 81 mg chewable tablet Take 1 tablet by mouth once a day active Not Available Not Available No t Available lisinopri l 5 mg tablet TAKE 1 TABLET BY MOUTH EVERY DAY 02/24 completed stopped by [facility] Not Available Not Available [...] day by oral route. active started by [facility] Not Available Not Available Not Available dorzolami de 2 % (PF) eye drops 1 drop both eyes bid 12/17 completed Not Available Not Available Not Available Vitals Date Recorded Body weight Body mass index (BMI) Body height Heart rate Systolic blood pressure Diastolic blood pressure Provider Name and Address Organization Details Last Updated DateTime 3 06811.7 8 g 23.7 kg/m2 167.64 cm 64 /min 110 mm[Hg] 60 mm[Hg] GLORIA CAMP LPN [facility] 3 08:48:49 Date Recorded Body height Body mass index (BMI) Body weight Heart rate Systolic blood pressure Diastolic blood pressure Provider Name and Address Organization Details Last Updated DateTime 4 167.64 cm 24.6 kg/m2 36368.4 4 g 60 /min 112 mm[Hg] 80 mm[Hg] GLORIA CAMP LPN [facility] 4 08:38:13 Date Recorded Body height Body mass index (BMI) Body weight Heart rate Oxygen saturation Oxygen saturation in Arterial blood by Pulse oximetry Systolic blood pressure Diastolic blood pressure Provider Name and Address Organization Details Last Updated DateTime 4 167.64 cm 22.6 kg/m2 76886.6 5 g 63 /min 99 % 99 % 102 mm[Hg] 54 mm[Hg] Hudson Reeder MA [facility] 4 10:27:28 Social History Question Answer Notes LastModified by Organizat ion Details LastModified Time Tobacco Smoking Status Former Smoker Hudson Reeder MA null, [place] - [facility]. 03/06/2024 10:24:50 Do You Have An Advance Directive? Yes Registered 08/15/23 Updated 01/12/24 Information not available 01/15/2024 When Did You Quit Smoking? 11-15years sincelastc igarette [email or web address] Information not available 03/06/2024 Do You Have A Medical Power Of Beverage Distiller? Yes Received 08/30/23, Scanned. Copies Sent To [facility] And Patient 09/02/23. Information not available 09/02/2023 What Was The Date Of Your Most Recent Tobacco Screening? 03/06/2024 [email or web address] Information not available 03/06/2024 What Is Your Current Pack Years? 30ormorepa ckyears [email or web address] Information not available 03/06/2024 How Much Tobacco Do You Smoke? 1 PPD [email or web address] Information not available 03/06/2024 How Many Years Have You Smoked Tobacco? 40 [email or web address] Information not available 03/06/2024 Do You Or Have You Ever Used Any Other Forms Of Tobacco Or Nicotine? No [email or web address] Information not available 03/06/2024 Sex: Male Functional [...] Time Tdap 3 completed Not Available [facility] 10/18/2023 05:30:17 Td(adult) unspecified formulation 3 completed Not Available [facility] 10/18/2023 05:30:17 COVID-19, mRNA, LNP-S, PF, 100 mcg/0.5mL dose or 50 mcg/0.25mL dose 1 completed Not Available [facility] 10/18/2023 05:30:18 COVID-19, mRNA, LNP-S, PF, 100 mcg/0.5mL dose or 50 mcg/0.25mL dose 1 completed Not Available [facility] 10/18/2023 05:30:18 COVID-19, mRNA, LNP-S, PF, 100 mcg/0.5mL dose or 50 mcg/0.25mL dose 1 completed Not Available [facility] 10/18/2023 05:30:18 influenza, unspecified formulation 1 completed Not Available [facility] 10/18/2023 05:30:18 influenza, unspecified formulation 2 completed Not Available [facility] 10/18/2023 05:30:18 influenza, unspecified formulation 0 completed Not Available [facility] 10/18/2023 05:30:18 influenza, unspecified formulation 9 completed Not Available [facility] 10/18/2023 05:30:18 influenza, unspecified formulation 8 completed Not Available [facility] 10/18/2023 05:30:18 Past Encounters Encounter ID Performer Location Encounter Start Date Encounter Closed Date Diagnosis/Indication Diagnosis SNOMED-CT Code Diagnosis ICD10 Code [id number] [address] [address] 09/19/2023 08:39:51 09/19/2023 09:17:42 Aortic valve stenosis 90872268 I35.0 Essential hypertension 81792385 I10 [id number] [address] [address] 12/18/2023 08:23:47 12/18/2023 09:29:09 Aortic stenosis, non-rheumatic 798424521 I35.0 Essential hypertension 13427293 I10 Nonulcer dyspepsia 33300 07 K30 Cramp in lower leg 19036 8009 R25.2 [id number] TATYANA LEDEZMA MD [address] [address] 03/06/2024 10:15:07 03/06/2024 11:14:28 Postoperative visit 264079416 Z48.89 Aortic rosa m nosis, non-rheumatic 200402576 I35.0 Stented co ronary artery 330425339 Z95.5 At [facility] risk of atrial fibrillation 809161423 Z91.89 Anemia 987566262 D64.9 Health Concerns Section Related Observation LastModified by Organization Detai ls LastModified Time None Recorded Concern Status LastModified by Organization Details LastModified Time None Recorded Advance Directives Directive Y: Registered 08/15/23Updated 01/12/24 Payers Encounter Date Sequence Insurance Name Policy Number Policy Alicia Covered Member ID Alicia Member ID Guarantor Name 12/18/2023 1 [facility] [id number] Karlos C Patenaude [id number] Karlos C Patenaude 03/06/2024 1 [employer] [id number] Karlos C Patenaude [id number] Karlos C Patenaude Notes Date Note Type Note Provider Name and Address Organization Details Recorded Time 09/19/2023 text/html 63-year-old man here for follow-up hypertension, severe aortic stenosis.,He works full-time at [employer]. He lives at home with his dog. He has not heard from [facility] cardiology? referred mid-August.He did decrease his lisinopril to 5 mg, home SBPs running 110- 138, no change in slight lightheadedness with change position. He does continue to get dyspnea on exertion, denies chest pain, resolves fairly quickly no peripheral edema. 12/05/2022 [facility] transthoracic echocardiogram; there is moderate to severe aortic stenosis with disparate indicators. The calculated valve area is 0.8 cm2 is consistent with severe stenosis. Planimetry confirms valve area to 0.9 cm2. The mean gradient of 28 mmHg and peak velocity of 3.6M/S are consistent with moderate stenosis. There is trivial to mild aortic insufficiency. Aparna lizarraga [facility]. 09/19/2023 13:31:38 12/18/2023 text/html 63-year-old man here for follow-up hypertension, severe aortic stenosis.,He works full-time at [employer]. He lives at home with his dog. 12/05/2022 [facility] transthoracic echocardiogram; there is moderate to [...] in his coffee. Aparna lizarraga, [facility]. 12/18/2023 11:43:00 03/06/2024 text/html Karlos is here today for a postop evaluation TATYANA LEDEZMA MD [address], [place], [address], [facility]. 03/08/2024 13:57:34
--- OUTSIDE RECORDS SUMMARY | 2024-09-24 10:14 | XMS_ITS | Encounter Summary ---
Author Organization [facility] Address [facility] Ivana linareseileen [place] [id number] Care Team Providers Care Electronic Gluer Name Role Phone Vanessa Christian MAURI Primary Care Provider [phone] Reason for Referral * Consultation (Routine) - Closed Specialty Diagnoses / Procedures Referred By Contac t Referred To Contact Cardiac Surgery Diagnoses Nonrheumatic aortic valve stenosis significant - TAVR ( defers to Card Surg d/t age) Errol Loya MD [facility] [place] [address] Zak Farmer MD [facility] [place] [address] Referral ID Status Reason Start Date Expiration Date V isits Requested Visits Authorized [id number] Closed Consult, Test & Treat 10/21/2023 10/20/2024 1 1 Reason for Visit * Reason Comments Chest Pain Shortness of Breath Aortic Stenosis Encounter Details Date Type Department Care Team (Late st Contact Info) Description 10/21/2023 1:20 PM EST Office Visit Cardiology at [address] [address] Errol Loya MD [facility] [place] [address] Nonrheumatic aortic valve stenosis Social History Tobacco [...] Problem List Diagnosis Aortic stenosis 12/2022 TTE ([facility]): VITA 0.8-0.9 cm2 (MG 28 mmHg, DOI [...] the meantime will refer to T at [facility] for further evaluation. Logistics and [...] the meantime will refer to T at [facility] for further evaluation. Logistics and [...] disorders documented in this encounter Care Teams Electronic Gluer Relationship Specialty Start Date End Date Vanessa Christian APRN PCP - General Family Medicine 10/21/23 05/26/24 documented as of this encounter
--- OUTSIDE RECORDS SUMMARY | 2024-09-24 10:14 | XMS_ITS | Encounter Summary ---
Author Organization [facility] [place] [address] Care Team Providers Care Assistant Facility Manager Name Role Phone Vanessa Christian APRN Primary Care Provider [phone] Encounter Details Date Type Department Care Team [...] filedocumented in this encounter Care Teams Assistant Facility Manager Relationship Specialty Start Date End Date Vanessa Christian APRN PCP - General Family Medicine 10/21/23 05/26/24 documented as of this encounter
--- OUTSIDE RECORDS SUMMARY | 2024-09-24 10:14 | XMS_ITS | Encounter Summary ---
[place] [address] Care Team Providers Care Venetian Blind Machine Operator Name Role Phone Victor M Lafleur MD Primary Care Provider [phone] Reason for Visit * Reason Onset Date Comments Referral 09/20/2023 Encounter Details Date Type Department Care Team (Late st Contact Info) Description 09/20/2023 Telephone Cardiology at [address] [address] Karen Billy, probation officer Social History Tobacco Use Types Packs/Day Years [...] on filedocumented in this encounter Care Teams Venetian Blind Machine Operator Relationship Specialty Start Date End Date Victor M Lafleur MD PCP - General 10/02/13 10/20/23 documented as of this encounter
[2024-09-24 10:24] VITALS: BP 111/60; PULSE 79
--- OUTSIDE RECORDS SUMMARY | 2024-09-29 09:57 | XMS_ITS | Encounter Summary ---
Author Organization [facility] Address [facility] [place] [address] Care Team Providers Care Sheet Sewer Name Role Phone Vanessa Christian MAURI Primary Care Provider [phone] Encounter Details Date Type Department Care Team (Latest Contact Info) Description 03/12/2024 1:30 PM EDT - 03/12/2024 11:59 PM EDT Hospital Encounter XRay at [address] [place] [address] Coronary artery disease, unspecified vessel or lesion type, unspecified whether angina present, unspecified whether [place] or transplanted heart Discharge Disposition: Home Social History Tobacco Use Types Packs/Day Years Used Date Smoking Tobacco: Former Cigarettes Smokeless Tobacco: Never Comments:Quit 15 + years ago Alcohol Use Standard Drinks/Week Comments Yes 0 (1 standard drink = 0.6 oz pur e alcohol) rare [facility] Utilities Answer Date Recorded In the past 12 months has e [employer], gas, oil, or water [employer] threatened to shut off services in [...] unspecified whether [place] or transplanted heart documented in this encounter Results * XR Chest PA & Lateral (Generic) (03/12/2024 1:42 PM EDT) WORKSTATION ID [id number] RAD Anatomical Region Laterality Modality Chest N/A [...] have questions please contact the health manager managed care that requested your imaging first. ? [...] who have questions please contactthe health manager managed care that requested your imaging first. Zak Farmer MD IMG DX ORDERABLES documented in this encounter Visit Diagnoses Diagnosis Coronary artery disease, unspecified vessel or lesion type, unspecified whether angina present, unspecified whether [place] or transplanted heart documented in this encounter Care Teams Sheet Sewer Relationship Specialty Start Date End Date Vanessa Christian APRN PCP - General Family Medicine 10/21/23 05/26/24 documented as of this encounter
--- OUTSIDE RECORDS SUMMARY | 2024-09-29 09:57 | XMS_ITS | Encounter Summary ---
Author Organization [facility] Address [address] [place] [address] Care Team Providers Care Assurance Officer Name Role Phone Filidayna Vanessa Dayna MONCADA Primary Care Provider [phone] Encounter Details Date Type Department Care Team (Late st Contact Info) Description 10/24/2023 Lab Requisition [facility] Pathology & Laboratory Medicine - [address] [address] Oscar Nichole MD [address] [place] [phone] Factitial dermatitis Social History Tobacco Use Types [...] if applicable. 10/28/2023 11:24 EST [facility] Final Diagnosis A. SKIN OF JEW, LEFT, SHAVE BIOPSY: - Seborrheic keratosis, pigmented. 10/28/2023 11:24 EST [facility] Attestation By the signature below, the attending physician certifies that they have 1) personally conducted a gross and/or microscopic examination of the described specimen(s), and/or personally interpreted the results of laboratory testing of the described specimen(s), and 2) personally rendered or confirmed the above diagnosis. 10/28/2023 11:24 [facility] at [address] Microscopic Description The stratum corneum is thickened by compact and basketweave orthokeratosis with formation of horn pseudocysts. The epidermis is acanthotic with formation of broad and anastomosing trabeculae. The trabeculae are composed of basaloid keratinocytes with round uniform nuclei. The keratinocytes have a variable amount of melanin pigment. 10/28/2023 11:24 [facility] Clinical History Pigmented 2 cm patch; clinical diagnosis code: L98.1 10/28/2023 11:24 [facility] Gross Description A. Received in formalin labelled with proper patient identification (initials P, A) and left baptism is a shave biopsy of an irregular [...] Nora Anderson 10/25/2023 8:47 10/28/2023 11:24 [facility] Performing Lab [facility] 10/28/2023 11:24 [facility] Scanned Images 10/28/2023 11:24 [facility] Tissue SPECIMEN FROM SKIN / Unknown 10/24/2023 14:30 EST 10/24/2023 22:04 EST us Oscar Nichole MD PATHOLOGY ORDERABLES Final Resul t [facility] [address] [place] [address] documented in this encounter Visit Diagnoses Diagnosis Factitial dermatitis Dermatitis factitia (artefacta) documented in this encounter Care Teams Assurance Officer Relationship Specialty Start Date End Date Vanessa Christian NP [address] [place] [address] PCP - General Family Medicine - Primary Care 10/07/23 documented as of this encounter
--- OUTSIDE RECORDS SUMMARY | 2024-09-29 09:57 | XMS_ITS | Encounter Summary ---
Author Organization [facility] Address [facility] [place] [address] Care Team Providers Care Evp Operations Name Role Phone Vanessa Christian Lane DOTSON Primary Care Provider [phone] Reason for Visit * Reason Comments Coronary Artery Disease Aortic Stenosis Encounter Details Date Type Department Care Team (Latest Contact Info) Description 05/27/2024 11:00 AM EDT Office Visit Cardiology at [address] [phone] Neftali Ernandez MD [facility] [address] ASCVD (arteriosclerotic cardiovascular disease); Nonrheumatic aortic valve stenosis Social History Tobacco Use Types Packs/Day Years Used Date Smoking Tobacco: Former Cigarettes Smokeless Tobacco: Never Comments:Quit 15 + years ago Alcohol Use Standard Drinks/Week Comments Yes 0 (1 standard drink = 0.6 oz pur e alcohol) rare [facility] Utilities Answer Date Recorded In the past 12 months has e [employer], gas, oil, or water [employer] threatened to shut off services in [...] disorders documented in this encounter Care Teams Evp Operations Relationship Specialty Start Date End Date Vanessa Christian, MAURI [address] [place] [address] PCP - General Family Medicine 05/27/24 documented as of this encounter
--- OUTSIDE RECORDS SUMMARY | 2024-09-29 09:57 | XMS_ITS | Encounter Summary ---
Author Organization [facility] Address [facility] [place] [address] Care Team Providers Care Vein Access Technician Name Role Phone Vanessa Christian MAURI Primary Care Provider [phone] Encounter Details Date Type Department Care Team (Latest Contact Info) Description 03/12/2024 Travel Social History Tobacco Use Types Packs/Day Years Used Date Smoking Tobacco: Former Cigarettes Smokeless Tobacco: Never Comments:Quit 15 + years ago Alcohol Use Standard Drinks/Week Comments Yes 0 (1 standard drink = 0.6 oz pur e alcohol) rare [facility] Utilities Answer Date Recorded In the [...]
--- OUTSIDE RECORDS SUMMARY | 2024-09-29 09:57 | XMS_ITS | Referral Summary ---
Author Organization [facility] Address [address] [place] [address] Care Team Providers Care Administrative Asst Name Role Phone Vanessa Christian Lane MONCADA Primary Care Provider [phone] Social History Tobacco Use Types Packs/Day Years Used Date Smoking Tobacco: Never Assessed Sex and Gender Information Value Date Recorded Sex Assigned at Not on file Legal Sex Male 22:02 EST Gender Identity Not on file Sexual Orientation Not on file Plan of Treatment Not on file Insurance [facility] Care Teams Administrative Asst Relationship Specialty Start Date End Date Vanessa Christian, ANTWAN [address] [place] [phone] PCP - General Family Medicine - Primary Care 10/07/23
--- OUTSIDE RECORDS SUMMARY | 2024-09-29 09:57 | XMS_ITS | Encounter Summary ---
Author Organization [facility] Address [facility] [place] [address] Care Team Providers Care Steam Station Supervisor Name Role Phone Vanessa Christian OFFICER LIEUTENANT Primary Care Provider [phone] Encounter Details Date Type Department Care Team (Late st Contact Info) Description 03/12/2024 2:40 PM EDT Office [place] [phone] Zak Farmer MD [facility] [place] [address] Coronary artery disease, unspecified vessel or lesion type, unspecified whether angina present, unspecified whether [place] or transplanted heart Social History Tobacco Use Types Packs/Day Years Used Date Smoking Tobacco: Former Cigarettes Smokeless Tobacco: Never Comments:Quit 15 + years ago Alcohol Use Standard Drinks/Week Comments Yes 0 (1 standard drink = 0.6 oz pur e alcohol) rare [facility] Utilities Answer Date Recorded In the past 12 months has e [employer], gas, oil, or water [employer] threatened to shut off services in your [...] 2:40 PM EDT To: MD Vanessa Coles, OFFICER LIEUTENANT Re; Karlos Santa ( 1960) We had [...] office. Best personal regards, Zak Farmer MD [phone] documented in this encounter Plan of Treatment Not on file documented as of this encounter Procedures Procedure Name Priority Date/Time Associated Diagnosis Comments EKG 12-LEAD Routine 03/12/2024 2:35 PM EDT Coronary artery disease, unspecified vessel or lesion type, unspecified whether angina present, unspecified whether [place] or transplanted heart documented in this encounter Results * EKG 12 Lead (03/12/2024 2:35 PM EDT) Ventricular rate 59 BPM MUSE SYSTEM Atrial Rate 59 BPM MUSE SYSTEM P-R Interval 190 ms MUSE SYSTEM QRS Duration 92 ms MUSE SYSTEM Q-T Interval 406 ms MUSE SYSTEM QTC Calculated (Bezet) 401 ms MUSE SYSTEM Calculated P [place] -12 degrees MUSE SYSTEM Calculated R [place] 24 degrees MUSE SYSTEM Calculated T [place] 74 degrees MUSE SYSTEM INTERPRETATION Sinus bradycardia T wave abnormality, consider anterior ischemia Abnormal ECG When compared with ECG of 17-FEB-2024 13:24, PA interval has decreased T wave inversion now evident in Anterior leads Confirmed by Paul Guzman ([id number]) on 03/15/2024 8:36:23 AM MUSE SYSTEM 03/12/2024 2:35 PM EDT 03/15/2024 8:36 AM EDT Zak Farmer MD ECG ORDERABLES [employer] documented in this encounter Visit Diagnoses Diagnosis Coronary artery disease, unspecified vessel or lesion type, unspecified whether angina present, unspecified whether [place] or transplanted heart documented in this encounter Care Teams Steam Station Supervisor Relationship Specialty Start Date End Date Vanessa Christian, MAURI PCP - General Family Medicine 10/21/23 05/26/24 documented as of this encounter
--- OUTSIDE RECORDS SUMMARY | 2024-09-29 09:57 | XMS_ITS | Encounter Summary ---
Author Organization [facility] Address [facility] [place] [address] Care Team Providers Care Political Advisor Name Role Phone Vanessa Christian MAURI Primary Care Provider [phone] Encounter Details Date Type Department Care Team [...] on filedocumented in this encounter Care Teams Political Advisor Relationship Specialty Start Date End Date Vanessa Christian APRN PCP - General Family Medicine 10/21/23 05/26/24 documented as of this encounter
--- OUTSIDE RECORDS SUMMARY | 2024-09-29 09:57 | XMS_ITS | Clinical Summary ---
Author Organization [facility] Address [facility] [place] [address] Care Team Providers Care Fx Artist Name Role Phone Vanessa Christian Lane DOTSON Primary Care Provider [phone] Allergies No known active allergies Medications Medication [...] the meantime will refer to [facility] at [facility] for further evaluation. Logistics and preliminary review of TONY were reviewed with patient. - Refer to SHT Hypertension 08/14/2023 Resolved Problems Problem Noted Date Diagnosed Date Resolved Date Nevus of face 09/26/2023 05/27/2024 Overview (09/26/2023): Right congregational Chest pressure 08/14/2023 10/21/2023 SILVA (dyspnea on exertion) 08/14/2023 HLD (hyperlipidemia) 08/14/2023 024 Social History Tobacco Use Types Packs/Day Years Used Date Smoking Tobacco: Former Cigarettes Smokeless Tobacco: Never Comments:Quit 15 + years ago Alcohol Use Standard Drinks/Week Comments Yes 0 (1 standard drink = 0.6 oz pur e alcohol) rare [facility] Utilities Answer Date Recorded In [...] 1977 Tetanus/Diphtheria/Pertussis Vaccines (1 - Tdap) 07/05 Pneumoccocal Vaccine: 65+ (1 of 1 - PCV) 2009 Zoster vaccine (1 of 2) 2009 Advance Directive 2014 Covid-19 Vaccine (1 - season) 2024 Influenza (Flu) vaccine (1 o f 1 - Influenza standard series) 06/07/2024 Medical Devices Implanted Type Area Air Lift Operator Device Identifier Shelf Expiration Date Model / Serial / Lot Cable,Cut,Edg ,Blnt,Ss,3tpr ([id number]) - [id number] Implanted:Qty : 1 on 02/17/2024 by Zak Farmer MD at [facility] IMPLANTS Midline: Chest [employer] - [id number] 09/02/2028 [id number] / / [id number] Valve Coronary Aortic 23mm Tissue Trnscath Biopros Inspiris ([id number]) ([employer]ore[employer]) - [id number] Implanted:Qty : 1 on 02/17/2024 by Zak Farmer MD at [facility] IMPLANTS Heart [employer] - TSAI LI 09/15/2027 [id number] 23MM / [id number] / Advance Directives * Attempt Cardiopulmonary Resuscitation [...] Status decision made by: Patient Care Teams Fx Artist Relationship Specialty Start Date End Date Vanessa Christian, BRASS CHASER [address] [place] [address] PCP - General Family Medicine 05/27/24
--- OUTSIDE RECORDS SUMMARY | 2024-09-29 09:57 | XMS_ITS | Clinical Summary ---
Author Organization [facility] Address [address] [place] [address] Care Team Providers Care Clinical Interviewer Name Role Phone Filidayna Vanessa Sherman NP Primary Care Provider [phone] Social History Tobacco Use Types Packs/Day Years [...] 75+ series) 2034 Insurance [employer] Care Teams Clinical Interviewer Relationship Specialty Start Date End Date Vanessa Christian, ANTWAN [address] [place] [phone] PCP - General Family Medicine - Primary Care 10/07/23
--- OUTSIDE RECORDS SUMMARY | 2024-09-29 09:57 | XMS_ITS | Encounter Summary ---
Author Organization [facility] Address [facility] [place] [address] Care Team Providers Care Corporate Secretary Name Role Phone Vanessa Christian MAURI Primary Care Provider [phone] Encounter Details Date Type Department Care Team [...] on filedocumented in this encounter Care Teams Corporate Secretary Relationship Specialty Start Date End Date Vanessa Christian APRN [address] [place] [address] PCP - General Family Medicine 05/27/24 documented as of this encounter
[2024-09-29 09:58] VITALS: BP 115/69; PULSE 66
--- OUTSIDE RECORDS SUMMARY | 2024-09-29 09:58 | XMS_ITS | Encounter Summary ---
[place] [address] Care Team Providers Care Garment Tag Stringer Name Role Phone Aparna Jordan MAURI Primary Care Provider [phone] Reason for Referral * Diagnostic Test (Routine) - New Request Specialty Diagnoses / Procedures Referred By Contac t Referred To Contact Cardiology Diagnoses S/P AVR Procedures Echocardiogram Transthoracic Neftali Menon PA [facility] [place] [address] [facility] [place] [address] Referral ID Status Reason Start Date Expiration Date Visits Requested Visits Authorized [id number] New Request Specialty Service Requested 02/24/2024 02/23/2025 1 1 * Consultation (Routine) - Closed Specialty Diagnoses / Procedures Referred By Contac t Referred To Contact Cardiology Diagnoses S/P AVR Hayder Graham MD [facility] [place] [address] Cardiac Rehab, [facility] [address] [place] [address] [place] [address] Referral ID Status Reason Start Date Expiration Date V isits Requested Visits Authorized [id number] Closed Consult, Test & Treat 02/24/2024 08/22/2024 36 36 * Home Health Care (Routine) - Closed Specialty Diagnoses / Procedures Referred By Sixto mendoza Referred To Contact Diagnoses S/P AVR Hayder Graham MD [facility] [place] [address] Referral ID Status Reason Start Date Expiration Date V isits Requested Visits Authorized [id number] Closed Consult, Test & Treat 02/24/2024 08/22/2024 [...] ARTERIAL GRAFT (WRVU 7.93) Hayder Graham MD [facility] [place]OTH[place]AC[place] [address] [facility] Referral ID Status Reason Start Date Expiration Date Visits Re quested Visits Authorized [id number] 1 1 Encounter Details Date Type Department Care Team (Latest Contact Info) Description 02/17/2024 5:43 AM EDT - 02/24/2024 11:23 AM EDT Hospital Encounter Heart and Vascular Unit Level 4 [place] [address] Hayder Graham MD [facility] [place] [address] S/P AVR (Primary Dx); Aortic valve stenosis, [...] Patient Age: 63 y.o. Birthdate: 1960 Language: South Sudanese Race: White Ethnicity: Not nor Admit Date: 02/17/2024 Discharge Date: 02/24/24 Attending Physician: Hayder Graham MD Follow-up Recommendations for Providers: Please continue routine management of cardiovascular risk factors including blood pressure, lipids,glucose, etc. Please note any changes to medications. Patient to follow up with PCP, Aparna Jordan APRN, in 1-2 weeks. Patient to follow up with Centerless Grinder Operator, Neftali Ernandez MD , in 2 weeks. Patient to follow up with Cardiac Surgeon, Dr. Hayder Graham, with a chest x-ray, EKG, and Echo. 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 Past Surgical History: Procedure Laterality Date PRO CABG, ARTERIAL, SINGLE N/A 02/17/2024 @CABG, USING ARTERIAL GRAFT;SINGLE ARTERIAL GRAFT (WRVU 33.75) performed by Hayder Graham MD at [facility] MAIN OR PRO CABG, ARTERY-VEIN, TWO N/A 02/17/2024 @CABG, TWO VENOUS GRAFTS & ARTERIAL GRAFT (WRVU 7.93) performed by Hayder Graham MD at [facility] MAIN OR PRO ENDOSCOPY W/VIDEO-ASST VEIN HARVEST, CABG Left 02/17/2024 ENDOSCOPIC HARVEST VEIN(S) FOR CABG (WRVU 0.31) performed by Hayder Graham MD at [facility] MAIN OR PRO REPLACEMENT PROSTHETIC AORTIC VALVE OPEN W CARDIOPULMONARY BYPASS HOMOGRF/STENT N/A 02/17/2024 @REPLACE AORTIC VALVE, OPEN, W\CPB, W\PROSTHETIC VALVE (WRVU 41.32) performed by Hayder Graham MD at [facility] MAIN OR Prior To Admission Medications [...] insufficiency. He has glaucoma. He used to [employer] until about 15 years ago. He has undergone prior herniorrhaphy. 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 Major Procedures/Operations: 02/17/24 s/p avr/cabgx3 CABG x 3 JOSE->LAD SVG->dRCA SVG->OM1 EVH from LLE AVR with a 23 mm Inspiris Bioprosthesis Hospital Course: Karlos Garcia was admitted to [facility] on 02/17/2024 via the Same Day [...] Hayder Graham and/or the Cardiac Surgery Physician Easter Bunny Team may be reached at . Antibiotic [...] Dr. Hayder Graham. You may use a Barnett Track or treadmill but avoid any pulling [...] while being managed by your PCP and/or Centerless Grinder Operator. For future medication refills, please refer to your PCP and/or Centerless Grinder Operator after your discharge from our service. Thank you REMOVE CHEST TUBE SUTURES ON OR AFTER 03/02/24 Home oxygen therapy: N/A Follow up appointments: You should follow up with your PCP, Aparna oJrdan APRN, in 1-2 weeks. Our office will schedule an appointment with your Centerless Grinder Operator, Neftali Ernandez MD , in 2 weeks. You have an appointment with your Cardiac Surgeon, Dr. Hayder Graham, 4 weeks with a chest x-ray, EKG, and Echo before your appointment. Cardiac Rehabilitation: Karlos Garcia was seen regarding participation in the outpatient Phase 2Cardiac Rehabilitation at [facility]. The patient agrees to a referral to this program. The referral will be sent at discharge and the patient should be contacted by the Program within 1- 2 weeks from discharge. Future Appointments and Orders Future Orders Complete By Expires Echocardiogram Transthoracic [63507 CPT(R)] 03/26/2024 09/25/2024 Process Instructions: Scheduling Instructions: Questions: Where will study be performed?: [facility] Clinics Does the patient have Congenital Heart Disease?: Does patient require sedation?: Sedation rationale: XR Chest PA & Lateral (Generic) [95269 27449 Custom] 03/26/2024 09/25/2024 Process Instructions: Scheduling Instructions: Questions: Portable exam?: Reason for exam and clinical history: s/p avr/cabg Clinical information / jerome questions for radiologist: Stat read required?: Date of injury if applicable: Requested Time: Where will study be performed?: [facility] Radiology Referral to Cardiac Rehab [URZ976 Custom] As directed Process Instructions: If no progress note charted, please enter Clinical details in comments. Scheduling Instructions: Questions: My question or request is: s/p AVR/CABG. Cardiac rehab at [facility]. Referral to Home Health [REF34 Custom] As directed Process Instructions: If no progress note charted, please enter Clinical details in comments. Scheduling Instructions: Comments: Please evaluate Karlos Garcia for admission to Home Health. [address] Phone Number: Date of : 1960 Inpatient DOCUMENTATION FOR VNA SERVICES (INCLUDING THOSE PATIENTS WITH MEDICARE COVERAGE REQUIRING HOME VNA SERVICES AND/OR HOSPICE SERVICES) PATIENT'S LOCATION: Karlos Garcia [address] [employer] [phone] Strategic Analyst's Name: self/family In discussion with the attending physician, it is certified that this patient is under their care and that they, or a Nurse Practitioner, or Physician Easter Bunny who is working directly with them, hada [...] for services as follows: HOME HEALTH AGENCY: [facility]. [address] [place] [address] RN orders: Cardiopulmonary assessment, incisional assessment, assess [...] issues please call the Cardiology Office at [phone] FOR MEDICARE ONLY: (please delete this section [...] care: As above. Signed: NEFTALI MENON PA-C [facility] Section of Cardiac Surgery [facility] [address] FAX [phone] Date: 02/24/2024 CC: Aparna Jordan, MAURI Jordan, Aparna Sherman APRN [address] [place] [address] documented in this encounter Discharge Instructions * [...] Hayder Graham and/or the Cardiac Surgery Physician Easter Bunny Team may be reached at . Antibiotic [...] Dr. Hayder Graham. You may use a Barnett Track or treadmill but avoid any pulling [...] while being managed by your PCP and/or Centerless Grinder Operator. For future medication refills, please refer to your PCP and/or Centerless Grinder Operator after your discharge from our service. Thank you REMOVE CHEST TUBE SUTURES ON OR AFTER 03/02/24 Home oxygen therapy: N/A Follow up appointments: You should follow up with your PCP, Aparna Jordan APRN, in 1-2 weeks. Our office will schedule an appointment with your Centerless Grinder Operator, Neftali Ernandez MD , in 2 weeks. You have an appointment with your Cardiac Surgeon, Dr. Hayder Graham, 4 weeks with a chest x-ray, EKG, and Echo before your appointment. Cardiac Rehabilitation: Karlos Garcia was seen regarding participation in the outpatient Phase 2Cardiac Rehabilitation at [facility]. The patient agrees to a [...] 0600 and on the weekends please page [phone]. * Eric Barahona PA - 02/23/2024 9:27 [...] 0600 and on the weekends please page [phone]. * Tiffanie Owens PTA - 02/22/2024 2:48 [...] d/c for 10 days. 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 * Kelley Hinson, SENIOR IT BUSINESS ANALYST - 02/21/2024 10:15 AM EDT Physical [...] d/c for 10 days. 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 * Kelley Hinson PTA - 02/20/2024 3:32 PM EDT 02/20/24 4056 Evaluation & Treatment Document Type contact Total Minutes, Physical Therapy 0 Comment, Session Not Performed Checked in w/ pt this PM for ongoing PT services, pt politely declined, stating he had been dealing w/ nausea all day, made plan to see him tomorrow morning, will f/u at that time Kelley Hinson PTA Pager: [phone] Physical Therapy Inpatient Rehab Department * Louisa [...] 0600 and on the weekends please page [phone]. * Maris Benavides, PT - 02/19/2024 11:22 [...] d/c for 10 days. 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 Precautions/Special Considerations: [...] outlined inthis evaluation. MARIS BENAVIDES, PT Pager: [phone] Physical Therapy Inpatient Rehabilitation Department Time IN / OUT: 7001-3864 Total Time: 38 (eval) minutes; * Antonio [...] 0600 and on the weekends please page [phone]. * Minnie Begum PA - 02/18/2024 8:25 [...] 0600 and on the weekends please page [phone]. * Kim Ha RCP - 02/17/2024 2:25 [...] plan since last visit. Hayder Graham MD [phone] Source Note - Hayder Graham MD - [...] insufficiency. He has glaucoma. He used to [employer] until about 15 years ago. He has [...] given written informed consent. Hayder Graham MD [phone] * Hayder Graham MD - 02/17/2024 7:00 AM EDT Patient Name: Karlos Garcia Patient Age: 63 y.o. Birthdate: 1960 Admit date: 02/17/2024 Attending Physician: Hyader Graham MD Mr. Santa is a 63-year-old [...] given written informed consent. Hayder Graham MD [phone] documented in this encounter Miscellaneous Notes * [...] information for follow-up Home Health & Hospice, [address] [place] [address] Cardiac Rehab, [facility] [address] [place] [address] Transportation: family or friend will provide Functional status prior to admission: Independent Home Environment: Others in the home: alone. Current Living Arrangements: home/apartment/condo. Accessibility Concerns:a few steps to enter 1 floor home. Current Functional Ability: Assistive Person and Equipment DME used at home: none DME Needed at Discharge: N/A Patient is insured through: Primary Insurance: [employer] Payor: [employer] / Plan: [facility] [...] pain managed with scheduled Tylenol. Worked with [employer]. Ambulated in the roque multiple times during [...] anticipated Patient is insured through: Primary Insurance: [employer] Payor: [employer] / Plan: [facility] [...] Services: Physical Therapy, Registered Nurse Agency Referrals: [facility] [address] [address] Transportation: family or friend will provide Barriers to discharge: Discharge planning Plan going forward: Service Care Management will continue to follow and assist with discharge planning and coordination of care as indicated. Anticipated Date of Discharge: 02/22/2024 Rhett Bell RN RN/CM - Cellphone: [phone] Pager: [phone] Covering Service RN/CM * Plan of Care [...] Phase 2 Cardiac Rehabilitation at [facility]. 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 (Only good for 180 days) Any patient receiving care in [place] must abide by [place] law. The hierarchy for surrogate decision making [...] In the past 12 months has the [employer], gas, oil, or water [employer] threatened to shut off services in your [...] Home Address confirmed as: [address] [facility] [address] Physical address: [address] [facility], [address] Social & Family Supports: All names listed [...] Information: none noted Health/Prescription Coverage: Primary Insurance: [employer] Payor: [employer] / Plan: [facility] PPO / Product Type: *No Product type* / Secondary Insurance: N/A ; Prescription Coverage: Yes Preferred Pharmacy: [id number] AT [facility] & [address] [address] Status: Patient is a : No Primary Care Provider confirmed: Aparna Jordan, AGILE TEST LEAD [phone] Patient/Caregiver Goals of Treatment: dc to home Potential Needs for Transition of Care: home health care Agency Referrals: I have met with the patient to: discuss discharge planning needs. provide the [facility], Office of Care Management letter from the Financial Recruiter pertaining to rehab referrals. provide a letter describing our affiliations within the [facility] and educate about their right to choose where referrals are sent. provide a list of Home Health Agencies / Durable Medical Equipment vendors which serve their preferred geographic area. provided patient with [facility] Star Quality Rating handout. They have requested referrals to: [facility]. [address] [place] [address] Note routed to a Credit Coordinator who will communicate referrals to facilities [...] Reina Greene RN CM, BSN, CMGT- Ext [phone] * Plan of Care - Binta Trinidad [...] Operative Note Patient Name: Karlos Garcia DOB: [id number] MR#: [id number] Case Date: 02/17/2024 Surgeon: Surgeon(s) and Role: * Hayder Graham MD - Primary * Neftali Menon PA - Physician Easter Bunny Preoperative diagnosis: CAD Postoperative diagnosis: CAD, intraoperative [...] Operative Note Patient Name: Karlos Garcia : [id number] MR#: [id number] Case Date: 02/17/2024 Surgeon: Surgeons and Role: * Hayder Graham MD - Primary * Neftali Menon PA - Physician Easter Bunny Preoperative diagnosis: CAD Postoperative diagnosis: CAD, intraoperative [...] Drains: Mediastinal and Left pleural Dis[facility]: [facility] Procedure Description: The patient was brought to [...] Aortic Valve Open W Cardiopulmonary Bypass Homogrf/Stent (07484) Yes 02/17/2024 7:28 AM EDT CAD Cabg, Artery-Vein, Two (13053) Yes 02/17/2024 7:28 AM EDT CAD Cabg, Arterial, Single (60388) Yes 02/17/2024 7:28 AM EDT CAD Endoscopy W/Video-Asst Vein [place], Cabg (69452) Yes 02/17/2024 7:28 AM EDT CAD POCT GLUCOSE Routine 02/17/2024 6:38 AM EDT TRANSESOPHAGEAL ECHOCARDIOGRAM IN THE OR Routine 02/17/2024 6:33 AM EDT Aortic valve stenosis, etiology of cardiac valve disease unspecified LAB SCAN 02/17/2024 12:00 AM EDT IMPLANTABLE DEVICES SCAN 02/17/2024 12:00 AM EDT documented in this encounter Results * Potassium (02/24/2024 4:42 AM EDT) Potassium 4.0 3.5 - 5.0 mmol/L [place] [...] Lab Hyader Graham MD CHEMISTRY ORDERABLE S [facility] [place] [address] * (ABNORMAL) Basic Metabolic Panel (non-fasting) (02/23/2024 4:24 AM EDT) Glucose 117 65 - 199 mg/dL [place] [...] CHEMISTRY ORDERABLES [facility] [place] [address] * Potassium (02/22/2024 4:30 AM EDT) [facility] Signature Potassium 3.5 3.5 - 5.0 mmol/L [facility] [...] Lab Hayder Graham MD CHEMISTRY ORDERABLE S [facility] [place] [address] * (ABNORMAL) Basic Metabolic Panel (non-fasting) (02/21/2024 9:45 AM EDT) Glucose 123 65 - 199 mg/dL [facility] Comment:Diabetes: >=200 mg/d L plus symptoms Blood Urea Nitrogen 22(H) 10 - 20 mg/dL [facility] Creatinine 0.78(L) 0.80 - 1.50 mg/dL [facility] Sodium 140 135 - 145 mmol/L [facility] Potassium 3.9 3.5 - 5.0 mmol/L [facility] Comment: Please note: ??Patients with WBC >100,000 may have falsely elevated Potassium levels. ??For accurate Potassium quantification in these patients send serum separator tube (gold top) for subsequent determinations. ??Contact the Clinical Chemistry Laboratory if there are any questions. Chloride 100 98 - 107 mmol/L [facility] Carbon Dioxide Not Perf 22 - 31 [facility] Comment:Add-on request. Samp le too old to perform test. Anion Gap Unable to Calculate 5 - 15 mmol/L [facility] Calcium 8.6 8.5 - 10.5 mg/dL [facility] Est Glomerular Filtration Rate 100 >=60 mL/min/1 .73 m?? [facility] Comment: [...] Carpio MD CHEMISTRY ORDERABLES Performing Organization Address City/[facility]/ZIP Co de Phone Number [facility] [place] [address] * Lactate, whole blood, send to lab ([facility]) (02/21/2024 9:45 AM EDT) [facility] Lactate WB 2.0 0.5 - 2.2 mmol/L [facility] Blood 02/21/2024 9:45 AM EDT 02/21/2024 9:52 AM EDT Narrative Resulting Agency Comment Spec In Lab Hayder Graham MD CHEMISTRY ORDERABLE S Performing Organization Address [facility] Co de Phone Number [facility] [place] [address] * (ABNORMAL) Hepatic Function Panel (02/21/2024 9:45 AM EDT) [facility] Protein, Total 5.7(L) 6.1 - 8.0 [...] MD CHEMISTRY ORDERABLE S Performing Organization Address City/[facility]/ZIP Co de Phone Number [facility] [place] [address] * Lipase (02/21/2024 9:45 AM EDT) [facility] Lipase 56 0 - 60 unit/L [facility] Blood 02/21/2024 9:45 AM EDT 02/21/2024 9:52 AM EDT Narrative Resulting Agency Comment Spec In Lab Hayder Graham MD CHEMISTRY ORDERABLE S Performing Organization Address [facility] Co de Phone Number [facility] [place] [address] * Amylase (02/21/2024 9:45 AM EDT) Amylase 69 28 - 100 unit/L [facility] Blood 02/21/2024 9:45 AM EDT 02/21/2024 9:52 AM EDT Narrative Resulting Agency Comment Spec In Lab Hayder Graham MD CHEMISTRY ORDERABLE S Performing Organization Address [facility] de Phone Number [facility] [place] [address] * Potassium (02/21/2024 3:08 AM EDT) [facility] Potassium 3.8 3.5 - 5.0 mmol/L [facility] [...] MD CHEMISTRY ORDERABLE S Performing Organization Address [facility] Co de Phone Number [facility] [place] [address] * XR Chest PA & Lateral (Generic) (02/20/2024 10:19 AM EDT) WORKSTATION ID [id number] DH RAD Anatomical Region Laterality Modality Chest N/A Digital Radiogra phy Impressions 02/20/2024 1:11 PM EDT Small pleural effusions. No pneumothorax Thank you for letting us participate in the care of this patient. ??If you are a health care provider and have any questions regarding this report, please contact the number below. ??For patients who have questions please contact the health insurance healthcare representative that requested your imaging first. ? Electronically signed by: Rogerio Cruz MD, [facility] ??([phone]), at 02/20/2024 1:11 PM Narrative 02/20/2024 1:11 PM EDT EXAMINATION: XR CHEST PA AND LATERAL (GENERIC) CLINICAL HISTORY: s/p AVR/CABGx3 TECHNIQUE: PA and lateral views of the chest COMPARISON: 02/17/2024 FINDINGS: Support devices: Interval removal of [place]-Kaila catheter, endotracheal tube and mediastinal chest tubes The cardiac silhouette is stable status post median sternotomy, CABG and aortic valve replacement. There are small pleural effusions. No pneumothorax. Procedure Note Rogerio Cruz MD - 02/20/2024 EXAMINATION: XR CHEST PA AND LATERAL (GENERIC) CLINICAL HISTORY: s/p AVR/CABGx3 TECHNIQUE: PA and lateral views of the chest COMPARISON: 02/17/2024 FINDINGS: Support devices: Interval removal of [place]-Kaila catheter, endotracheal tubeand mediastinal chest tubes The [...] have questions please contactthe health insurance healthcare representative that requested your imaging first. Hayder Graham MD IMG DX ORDERABLES * Scan, Peripheral Blood (02/20/2024 4:23 AM EDT) Pathologist [facility] Plat estimate Decreased [facility] RBC Morphology Normal [facility] Blood 02/20/2024 4:23 AM EDT 02/20/2024 4:42 AM EDT Narrative Resulting Agency Comment Spec In Lab Minnie FRENCH HEMATOLOGY CECILIO ALEMAN [facility] [place] [address] * (ABNORMAL) Differential, Automated (02/20/2024 4:23 AM EDT) [facility] Neutrophil % 81.7 % [facility] Neutrophil Absolute 10.37(H) 1.70 - 6.10 x10(3)/mc L [facility] Lymph % 7.4 % [facility] Lymphocytes Abs 0.9 0.9 - 3.2 x10(3)/mc L [facility] Monocyte % 9.7 % [facility] Monocyte Abs 1.2(H) 0.3 - 0.9 x10(3)/mc L [facility] Eos % 0.1 % [facility] Eosinophils Abs 0.0 0.0 - 0.4 x10(3)/mc L [facility] Basophil % 0.2 % [facility] [...] CECILIO ALEMAN [facility] [place] [address] * (ABNORMAL) Hemogram (02/20/2024 4:23 AM EDT) [...] RDW Standard Deviation 43.5 36.0 - 45.0 [facility] RDW coefficient of variation 13.7 11.4 - 13.8 % [facility] Mean Platelet Volume 10.2 7.6 - 12.9 [facility] NRBC% auto 0.0 % [facility] NRBC Absolute 0.000 0.000 - 0.000 x10(3)/mc L [facility] Blood 02/20/2024 4:23 AM EDT 02/20/2024 4:42 AM EDT Narrative Resulting Agency Comment Spec In Lab Minnie FRENCH HEMATOLOGY CECILIO ALEMAN [facility] [place] [address] * (ABNORMAL) Basic Metabolic Panel (non-fasting) (02/20/2024 4:23 AM EDT) Glucose 113 65 - 199 mg/dL [facility] Comment:Diabetes: >=200 mg/d L plus symptoms Blood Urea Nitrogen 20 10 - 20 mg/dL [facility] Comment:result rechecked-[place] Creatinine 0.71(L) 0.80 - 1.50 mg/dL [facility] Sodium 135 135 - 145 mmol/L [facility] Potassium 3.9 3.5 - 5.0 mmol/L [facility] Comment: Please note: ??Patients with WBC >100,000 may have falsely elevated Potassium levels. ??For accurate Potassium quantification in these patients send serum separator tube (gold top) for subsequent determinations. ??Contact the Clinical Chemistry Laboratory if there are any questions. Chloride 102 98 - 107 mmol/L [facility] Carbon Dioxide 25 22 - 31 mmol/L [facility] Anion Gap 8 5 - 15 mmol/L [facility] Calcium 8.7 8.5 - 10.5 mg/dL [facility] Comment:result rechecked-[place] Est Glomerular Filtration [...] MD CHEMISTRY ORDERABLE S Performing Organization Address [facility] Co de Phone Number [facility] [place] [address] * Potassium (02/19/2024 3:57 AM EDT) Potassium 4.3 3.5 - 5.0 mmol/L [facility] MD CHEMISTRY ORDERABLE S Performing Organization Address [facility] Co de Phone Number [facility] [place] [address] * POCT Glucose (02/18/2024 8:24 AM EDT) Glucose, POC 157 65 - 199 mg/dL [facility] Comment: Supplemental ranges: <140 mg/dL before meals <180 mg/dL all other times of the day Blood 02/18/2024 8:24 AM EDT 02/18/2024 8:24 AM EDT Hayder Graham MD POINT OF CARE TEST ORDERABLES [facility] [place] [address] * Scan, Peripheral Blood (02/18/2024 1:40 AM EDT) Pathologist [facility] Plat estimate Decreased [facility] RBC Morphology Normal [facility] Blood 02/18/2024 1:40 AM EDT 02/18/2024 1:56 AM EDT Narrative Resulting Agency Comment Spec In Lab Neftali FRENCH HEMATOLOGY ORDER OLE Performing Organization Address City/[facility]/ZIP Co de Phone Number [facility] [place] [address] * (ABNORMAL) Differential, Automated (02/18/2024 1:40 AM EDT) [facility] Neutrophil % 87.1 % [facility] Neutrophil Absolute 15.03(H) 1.70 - 6.10 x10(3)/mc L [facility] Lymph % 3.0 % [facility] Lymphocytes Abs 0.5(L) 0.9 - 3.2 x10(3)/mc L [facility] Monocyte % 9.1 % [facility] Monocyte Abs 1.6(H) 0.3 - 0.9 x10(3)/mc L [facility] Eos % 0.0 % [facility] Eosinophils Abs 0.0 0.0 - 0.4 x10(3)/mc L [facility] Basophil % 0.2 % [facility] Baso Absolute 0.0 0.0 - 0.1 x10(3)/mc L [facility] Immature Gran % 0.60 % [facility] Comment: Immature granulocytes(IG's)percentage and absolute count will include metamyelocytes, myelocytes, and promyelocytes. Blood smears from CBCs yielding IG's will be scanned manually for concordance. If this scan disagrees with the automated IG or if promyelocytes are noted, a manual differential will be performed. Immature Gran Absolute 0.10(H) 0.00 - 0.04 x10(3)/mc L [facility] Blood 02/18/2024 1:40 AM EDT 02/18/2024 1:56 AM EDT Narrative Resulting Agency Comment Spec In Lab Neftali FRENCH HEMATOLOGY ORDER OLE [facility] [place] [address] * (ABNORMAL) Hemogram (02/18/2024 1:40 AM EDT) White Blood Cell 17.2(H) 4.0 - 9.5 x10(3)/ L [facility] Red Blood Cell 4.71 4.58 - 5.54 x10(6)/ L [facility] Hemoglobin 13.7 13.7 - 16.5 g/dL [facility] Hematocrit 39.2(L) 40.5 - 48.5 % [facility] Mean Cell Volume 83.2 82.9 - 93.1 fL [facility] Mean Cell Hemoglobin 29.1 27.5 - 32.1 pg [facility] Mean Cell Hemoglobin Concentration 34.9 32.0 - 35.7 g/dL [facility] Platelet 147 145 - 357 x10(3)/mc L [facility] RDW Standard Deviation 39.9 36.0 - 45.0 [facility] RDW coefficient of variation 13.2 11.4 - 13.8 % [facility] Mean Platelet Volume 9.9 7.6 - 12.9 fL [facility] NRBC% auto 0.0 % [facility] NRBC Absolute 0.000 0.000 - 0.000 x10(3)/ L [facility] Blood 02/18/2024 1:40 AM EDT 02/18/2024 1:56 AM EDT Narrative Resulting Agency Comment Spec In Lab Neftali FRENCH HEMATOLOGY ORDER OLE [facility] [place] [address] * (ABNORMAL) Basic Metabolic Panel (non-fasting) (02/18/2024 1:40 AM EDT) Glucose 176 65 - 199 mg/dL [facility] Comment:Diabetes: >=200 mg/d L plus symptoms Blood Urea Nitrogen 10 10 - 20 mg/dL [facility] Creatinine 0.65(L) 0.80 - 1.50 mg/dL [facility] Sodium 135 135 - 145 mmol/L [facility] Potassium 4.2 3.5 - 5.0 mmol/L [facility] Comment: Please note: ??Patients with WBC >100,000 may have falsely elevated Potassium levels. ??For accurate Potassium quantification in these patients send serum separator tube (gold top) for subsequent determinations. ??Contact the Clinical Chemistry Laboratory if there are any questions. Chloride 106 98 - 107 mmol/L [facility] Carbon Dioxide 20(L) 22 - 31 mmol/L [facility] Anion Gap 9 5 - 15 mmol/L [facility] Calcium 7.6(L) 8.5 - 10.5 mg/dL [facility] Est Glomerular Filtration Rate 105 >=60 mL/min/1. 73 m?? [facility] MD CHEMISTRY ORDERABLE S Performing Organization Address City/[facility]/ZIP Co de Phone Number [facility] [place] [address] * (ABNORMAL) Troponin (02/18/2024 1:40 AM EDT) Troponin-T, High Sensitivity 342(H) <=22 ng/L [facility] Comment: This patient's troponin T [...] [facility] Test Catalog Reference: Fourth Newcomb Definition of Myocardial Infarction. Journal of the [place] [employer] 2018;72:9764-5262 Blood 02/18/2024 1:40 AM EDT 02/18/2024 1:56 AM EDT Narrative Resulting Agency Comment Spec In Lab Hayder Graham MD CHEMISTRY ORDERABLE S [facility] [place] [address] * POCT Glucose (02/17/2024 8:13 PM EDT) Glucose, POC 142 65 - 199 mg/dL [facility] Comment: Supplemental ranges: <140 mg/dL before meals <180 mg/dL all other times of the day Blood 02/17/2024 8:13 PM EDT 02/17/2024 8:13 PM EDT Hayder Graham MD POINT OF CARE TEST ORDERABLES Performing Organization Address [facility] Co de Phone Number [facility] [place] [address] * POCT Glucose (02/17/2024 5:42 PM EDT) Glucose, POC 160 65 - 199 mg/dL [facility] Comment: Supplemental ranges: <140 mg/dL before meals <180 mg/dL all other times of the day Blood 02/17/2024 5:42 PM EDT 02/17/2024 5:42 PM EDT Hayder Graham MD POINT OF CARE TEST ORDERABLES Performing Organization Address [facility]/ZIP Co de Phone Number [facility] [place] [address] * Hemoglobin (02/17/2024 5:42 PM EDT) Hemoglobin 13.7 13.7 - 16.5 g/dL [facility] Blood 02/17/2024 5:42 PM EDT 02/17/2024 6:10 PM EDT Narrative Resulting Agency Comment Spec In Lab Hayder Graham MD HEMATOLOGY ORDERABL ES [facility] [place] [address] * Potassium (02/17/2024 5:42 PM EDT) Potassium 4.3 3.5 - 5.0 mmol/L [facility] MD CHEMISTRY ORDERABLE S Performing Organization Address City/State/[facility] Co de Phone Number [facility] [place] [address] * (ABNORMAL) BLOOD GAS 2 ARTERIAL (02/17/2024 4:18 PM EDT) pH, Arterial 7.34(L) 7.35 - 7.45 [facility] PCO2, Arterial 40 35 - 45 mmHg [facility] PO2, Arterial 78(L) 85 - 104 mmHg [facility] Bicarbonate, Arterial 20.8 20.0 - 26.0 mmol/L [facility] Base Excess, Arterial -5.1(L) -3.0 - 3.0 mmol/L [facility] Hgb Blood Gas 14.6 13.7 - 16.5 g/dL [facility] Oxyhemoglobin, Arterial 93.0(L) 94.0 - 97.0 % [facility] Carboxyhemoglob in, Arterial 0.3 % [facility] Comment: Nonsmokers: 0.5-1.5% COHB Smokers: Variable, but usually less than 10% Toxic: 20-30% COHB Lethal: Greater than 60% COHB Methemoglobin, Arterial 0.8 <=1.5 % [facility] Na Whole Blood 136 135 - 145 mmol/L [facility] K Whole Blood 4.1 3.5 - 5.0 mmol/L [facility] Comment: Please note: Patients with WBC >100,000 may have falsely elevated Potassium levels. Contact the Clinical Chemistry Laboratory if there are any questions. ICa Whole Blood 1.10(L) 1.15 - 1.33 mmol/L [facility] Comment: Note: ??Total bilirubin higher than 20 mg/dL may lead to falsely low ionized calcium. CL Whole Blood 105 98 - 107 mmol/L [facility] Gluc Whole Bld 159 65 - 199 mg/dL [facility] Comment:Diabetes: >=200 mg/d L plus symptoms. Lactate WB 1.2 0.5 - 2.2 mmol/L [facility] FIO2 Art 40 % [facility] PF Ratio Art 195 [facility] Blood 02/17/2024 4:18 PM EDT 02/17/2024 4:18 PM EDT Hayder Graham MD POINT OF CARE TEST ORDERABLES [facility] [place] [address] * XR Chest One View (02/17/2024 1:44 PM EDT) [facility] WORKSTATION ID [id number] DH RAD Anatomical Region Laterality Modality Chest N/A Digital Radiogra phy Impressions 02/17/2024 2:12 PM EDT 1. ??No definite pleural fluid collection or pneumothorax. 2. ??Right IJ [place] Harpe-Kaila catheter tip terminates in a descending branch [...] questions please contact the health insurance healthcare representative that requested your imaging first. ? Electronically signed by: Denzel Hankins MD, [facility] ??([phone]), at 02/17/2024 2:12 PM Narrative 02/17/2024 2:12 PM EDT EXAMINATION: XR CHEST ONE VIEW CLINICAL HISTORY: s/p avr/cabg eval effusions TECHNIQUE: 1 view of the chest COMPARISON: Chest x-ray 01/09/2024, chest CT 02/03/2024 FINDINGS: ET tube tip terminates 5.2 cm above the carlos. Right IJ La Harpe-Kaila catheter tip terminates in a descending branch [...] 5.2 cm above the carlos. Right IJ La Harpe-Ganzcatheter tip terminates in a descending branch of [...] fluid collection or pneumothorax. 2. Right IJ La Harpe-Kaila catheter tip terminates in a descending branch ofthe right pulmonary artery. Suggest catheter retraction. 3. Additional support lines and tubes as above. Thank you for letting us participate in the care of this patient. If youare a health care provider and have any questions regarding this report,please contact the number below. For patients who have questions please contactthe health insurance healthcare representative that requested your imaging first. Electronically signed by: Denzel Hankins MD, [facility]([phone]), at 02/17/2024 2:12 PM Hayder Graham MD IMG DX ORDERABLES * (ABNORMAL) BLOOD GAS 2 ARTERIAL (02/17/2024 1:31 PM EDT) pH, Arterial 7.35 7.35 - 7.45 [facility] PCO2, Arterial 39 35 - 45 mmHg [facility] PO2, Arterial 320(H) 85 - 104 mmHg [facility] Bicarbonate, Arterial 21.4 20.0 - 26.0 mmol/L [facility] Base Excess, Arterial -4.2(L) -3.0 - 3.0 mmol/L [facility] Hgb Blood Gas 14.1 13.7 - 16.5 g/dL [facility] Oxyhemoglobin, Arterial 97.9(H) 94.0 - 97.0 % [facility] Carboxyhemoglob in, Arterial 0.3 % [facility] Comment: Nonsmokers: 0.5-1.5% COHB Smokers: Variable, but usually less than 10% Toxic: 20-30% COHB Lethal: Greater than 60% COHB Methemoglobin, Arterial 0.7 <=1.5 % [facility] Na Whole Blood 137 135 - 145 mmol/L [facility] K Whole Blood 4.2 3.5 - 5.0 mmol/L [facility] Comment: Please note: Patients with WBC >100,000 may have falsely elevated Potassium levels. Contact the Clinical Chemistry Laboratory if there are any questions. ICa Whole Blood 1.13(L) 1.15 - 1.33 mmol/L [facility] Comment: Note: ??Total bilirubin higher than 20 mg/dL may lead to falsely low ionized calcium. CL Whole Blood 108(H) 98 - 107 mmol/L [facility] Gluc Whole Bld 136 65 - 199 mg/dL [facility] Comment:Diabetes: >=200 mg/d L plus symptoms. Lactate WB 1.1 0.5 - 2.2 mmol/L [facility] FIO2 Art 100 % [facility] PF Ratio Art 320 [facility] Blood 02/17/2024 1:31 PM EDT 02/17/2024 1:31 PM EDT Hayder Graham MD POINT OF CARE TEST ORDERABLES [facility] [place] [address] * (ABNORMAL) Coox2 (02/17/2024 1:21 PM EDT) pO2, Coox 44 mmHg [facility] Hgb Blood Gas 13.1(L) 13.7 - 16.5 g/dL [facility] Oxyhemoglobin, Coox 76.4 % [facility] Carboxyhemoglo bin, Coox 0.3 % [facility] Comment: Nonsmokers: 0.5-1.5% COHB Smokers: Variable, but usually less than 10% Toxic: 20-30% COHB Lethal: Greater than 60% COHB Methemoglobin, Coox 0.8 <=1.5 % [facility] Source Coox Mixed Venous [facility] Blood 02/17/2024 1:21 PM EDT 02/17/2024 1:21 PM EDT Hayder Graham MD POINT OF CARE TEST ORDERABLES [facility] [place] [address] * (ABNORMAL) BLOOD GAS 2 ARTERIAL (02/17/2024 12:14 PM EDT) pH, Arterial 7.39 7.35 - 7.45 [facility] PCO2, Arterial 40 35 - 45 mmHg [facility] PO2, Arterial 338(H) 85 - 104 mmHg [facility] Bicarbonate, Arterial 23.7 20.0 - 26.0 mmol/L [facility] Base Excess, Arterial -1.3 -3.0 - 3.0 mmol/L [facility] Hgb Blood Gas 11.0(L) 13.7 - 16.5 g/dL [facility] Oxyhemoglobin, Arterial 98.8(H) 94.0 - 97.0 % [facility] Carboxyhemoglob in, Arterial 0.3 % [facility] Comment: Nonsmokers: 0.5-1.5% COHB Smokers: Variable, but usually less than 10% Toxic: 20-30% COHB Lethal: Greater than 60% COHB Methemoglobin, Arterial 0.3 <=1.5 % [facility] Na Whole Blood 135 135 - 145 mmol/L [facility] K Whole Blood 5.1(H) 3.5 - 5.0 mmol/L [facility] Comment: Please note: Patients with WBC >100,000 may have falsely elevated Potassium levels. Contact the Clinical Chemistry Laboratory if there are any questions. ICa Whole Blood 1.13(L) 1.15 - 1.33 mmol/L [facility] Comment: Note: ??Total bilirubin higher than 20 mg/dL may lead to falsely low ionized calcium. CL Whole Blood 106 98 - 107 mmol/L [facility] Gluc Whole Bld 132 65 - 199 mg/dL [facility] Comment:Diabetes: >=200 mg/d L plus symptoms. Lactate WB 1.4 0.5 - 2.2 mmol/L [facility] Blood 02/17/2024 12:1 4 PM EDT 02/17/2024 12:14 PM EDT Hayder Graham MD POINT OF CARE TEST ORDERABLES Performing Organization Address [facility]/ZIP Co de Phone Number [facility] [place] [address] * (ABNORMAL) Fibrinogen (02/17/2024 12:10 PM EDT) Fibrinogen 154(L) 200 - 393 mg/dL [facility] Comment: OR Result called by ?? LOMARL OR Results read back by: ? alondra pagan at 2024-02-17 12:41:48 A fibrinogen level >100 mg/dL is adequate for hemostasis in most patients without underlying bleeding disorders. Blood 02/17/2024 12:1 0 PM EDT 02/17/2024 12:19 PM EDT Narrative Resulting Agency Comment Spec In Lab Tara York MD HEMATOLOGY ORDERABLE S Performing Organization Address City/[facility]/ZIP Co de Phone Number [facility] [place] [address] * (ABNORMAL) Thrombin time (02/17/2024 12:10 PM EDT) Thrombin Time 18(H) 10 - 17 sec [facility] Comment: OR Result called by [...] MD HEMATOLOGY ORDERABLE S Performing Organization Address [facility] Co de Phone Number [facility] [place] [address] * APTT (02/17/2024 12:10 PM EDT) Partial Thromboplastin Time 33 25 - 37 sec [facility] Comment: OR Result called by [...] MD HEMATOLOGY ORDERABLE S Performing Organization Address [facility] Co de Phone Number [facility] [place] [address] * (ABNORMAL) Prothrombin Time (02/17/2024 12:10 PM EDT) Prothrombin Time 16.7(H) 9.4 - 12.5 sec [facility] Comment: OR Result called by ?? LOMARL OR Results read back by: ? alondra pagan at 2024-02-17 12:41:48 International Normalization Ratio 1.5 [facility] Comment: OR Result called by [...] Lab Tara York MD HEMATOLOGY ORDERABLE S [facility] [place] [address] * (ABNORMAL) Hemogram (02/17/2024 12:10 PM EDT) White Blood Cell 11.1(H) 4.0 - 9.5 x10(3)/mc L [facility] Red Blood Cell 3.50(L) 4.58 - 5.54 x10(6)/mc L [facility] Hemoglobin 10.4(L) 13.7 - 16.5 g/dL [facility] Hematocrit 30.2(L) 40.5 - 48.5 % [facility] Comment: This result has been called to ALONDRA PAGAN by Eddie López on 02 17 2024 at 1226, and has been read back. Mean Cell Volume 86.3 82.9 - 93.1 fL [facility] Mean Cell Hemoglobin 29.7 27.5 - 32.1 pg [facility] Mean Cell Hemoglobin Concentration 34.4 32.0 - 35.7 g/dL [facility] Platelet 118(L) 145 - 357 x10(3)/mc L [facility] RDW Standard Deviation 40.2 36.0 - 45.0 [facility] RDW coefficient of variation 12.8 11.4 - 13.8 % [facility] Mean Platelet Volume 9.5 7.6 - 12.9 fL [facility] NRBC% auto 0.0 % [facility] NRBC Absolute 0.000 0.000 - 0.000 x10(3)/mc L [facility] Blood 02/17/2024 12:1 0 PM EDT 02/17/2024 12:19 PM EDT Narrative Resulting Agency Comment Spec In Lab Tara York MD HEMATOLOGY ORDERABLE S [facility] [place] [address] * (ABNORMAL) BLOOD GAS 2 ARTERIAL (02/17/2024 11:43 AM EDT) pH, Arterial 7.38 7.35 - 7.45 [facility] PCO2, Arterial 40 35 - 45 mmHg [facility] PO2, Arterial 304(H) 85 - 104 mmHg [facility] Bicarbonate, Arterial 23.2 20.0 - 26.0 mmol/L [facility] Base Excess, Arterial -1.9 -3.0 - 3.0 mmol/L [facility] Hgb Blood Gas 11.1(L) 13.7 - 16.5 g/dL [facility] Oxyhemoglobin, Arterial 98.6(H) 94.0 - 97.0 % [facility] Carboxyhemoglob in, Arterial 0.3 % [facility] Comment: Nonsmokers: 0.5-1.5% COHB Smokers: Variable, but usually less than 10% Toxic: 20-30% COHB Lethal: Greater than 60% COHB Methemoglobin, Arterial 0.3 <=1.5 % [facility] Na Whole Blood 133(L) 135 - 145 mmol/L [facility] K Whole Blood 6.2(Critic al) 3.5 - 5.0 mmol/L [facility] Comment: Noted by instrumentation engineer. Please note: Patients with WBC >100,000 may have falsely elevated Potassium levels. Contact the Clinical Chemistry Laboratory if there are any questions. ICa Whole Blood 0.97(L) 1.15 - 1.33 mmol/L [facility] Comment: Note: ??Total bilirubin higher than 20 mg/dL may lead to falsely low ionized calcium. CL Whole Blood 104 98 - 107 mmol/L [facility] Gluc Whole Bld 128 65 - 199 mg/dL [facility] Comment:Diabetes: >=200 mg/d L plus symptoms. Lactate WB 1.1 0.5 - 2.2 mmol/L [facility] Blood 02/17/2024 11:4 3 AM EDT 02/17/2024 11:43 AM EDT Hayder Graham MD POINT OF CARE TEST ORDERABLES [facility] [place] [address] * (ABNORMAL) BLOOD GAS 2 ARTERIAL (02/17/2024 11:08 AM EDT) pH, Arterial 7.38 7.35 - 7.45 [facility] PCO2, Arterial 38 35 - 45 mmHg [facility] PO2, Arterial 334(H) 85 - 104 mmHg [facility] Bicarbonate, Arterial 22.0 20.0 - 26.0 mmol/L [facility] Base Excess, Arterial -3.2(L) -3.0 - 3.0 mmol/L [facility] Hgb Blood Gas 10.8(L) 13.7 - 16.5 g/dL [facility] Oxyhemoglobin, Arterial 98.7(H) 94.0 - 97.0 % [facility] Carboxyhemoglob in, Arterial 0.3 % [facility] Comment: Nonsmokers: 0.5-1.5% COHB Smokers: Variable, but usually less than 10% Toxic: 20-30% COHB Lethal: Greater than 60% COHB Methemoglobin, Arterial 0.3 <=1.5 % [facility] Na Whole Blood 131(L) 135 - 145 mmol/L [facility] K Whole Blood 6.4(Critic al) 3.5 - 5.0 mmol/L [facility] Comment: Noted by instrumentation engineer. Please note: Patients with WBC >100,000 may have falsely elevated Potassium levels. Contact the Clinical Chemistry Laboratory if there are any questions. ICa Whole Blood 0.98(L) 1.15 - 1.33 mmol/L [facility] Comment: Note: ??Total bilirubin higher than 20 mg/dL may lead to falsely low ionized calcium. CL Whole Blood 104 98 - 107 mmol/L [facility] Gluc Whole Bld 127 65 - 199 mg/dL [facility] Comment:Diabetes: >=200 mg/d L plus symptoms. Lactate WB 1.0 0.5 - 2.2 mmol/L [facility] Blood 02/17/2024 11:0 8 AM EDT 02/17/2024 11:08 AM EDT Hayder Graham MD POINT OF CARE TEST ORDERABLES Performing Organization Address [facility]/ZIP Co de Phone Number [facility] [place] [address] * (ABNORMAL) Hemoglobin and Hematocrit, blood (02/17/2024 11:04 AM EDT) Hemoglobin 9.6(L) 13.7 - 16.5 g/dL [facility] Hematocrit 28.0(L) 40.5 - 48.5 % [facility] Comment: This result has been called to ALONDRA PAGAN by Eddie López on 02 17 2024 at 1120, and has been read back. Blood 02/17/2024 11:0 4 AM EDT 02/17/2024 11:12 AM EDT Narrative Resulting Agency Comment Spec In Lab Hayder Graham MD HEMATOLOGY ORDERABL ES Performing Organization Address City/[facility]/[place] [address] * (ABNORMAL) Platelet count (02/17/2024 11:04 AM EDT) Platelet 106(L) 145 - 357 x10(3)/mc L [facility] Immature Plt % 1.6 0.0 - 7.4 % [facility] Comment: Limitation of the Immature Platelet Fraction (IPF)-May be less reliable when the platelet count is less than 74e543/uL due to statistical imprecision. The IPF value [...] in a decreased state of production. References: [employer] The Clinical Value of the Immature Platelet Fraction (IPF) in Cell Recovery Document Number [id number] 03/2011 [employer] The Role of the Immature Platelet Fraction (IPF) in the Differential Diagnosis of Thrombocytopenia, Document MKT-10-1209 V002/15/14 Blood 02/17/2024 11:0 4 AM EDT 02/17/2024 11:12 AM EDT Narrative Resulting Agency Comment Spec In Lab Hayder Graham MD HEMATOLOGY ORDERABL ES Performing Organization Address City/State/[facility] Co de Phone Number [facility] [place] [address] * (ABNORMAL) Fibrinogen (02/17/2024 11:04 AM EDT) Fibrinogen 149(L) 200 - 393 mg/dL [facility] Comment: OR Result called by ?? SALVLT OR Results read back by: ? Alondra Pagan at 2024-02-17 11:30:47 A fibrinogen level >100 mg/dL is adequate for hemostasis in most patients without underlying bleeding disorders. Blood 02/17/2024 11:0 4 AM EDT 02/17/2024 11:12 AM EDT Narrative Resulting Agency Comment Spec In Lab Hayder Graham MD HEMATOLOGY ORDERABL ES [facility] [place] [address] * (ABNORMAL) BLOOD GAS 2 ARTERIAL (02/17/2024 10:41 AM EDT) pH, Arterial 7.37 7.35 - 7.45 [facility] PCO2, Arterial 44 35 - 45 mmHg [facility] PO2, Arterial 335(H) 85 - 104 mmHg [facility] Bicarbonate, Arterial 24.9 20.0 - 26.0 mmol/L [facility] Base Excess, Arterial -0.4 -3.0 - 3.0 mmol/L [facility] Hgb Blood Gas 11.5(L) 13.7 - 16.5 g/dL [facility] Oxyhemoglobin, Arterial 98.9(H) 94.0 - 97.0 % [facility] Carboxyhemoglob in, Arterial 0.1 % [facility] Comment: Nonsmokers: 0.5-1.5% COHB Smokers: Variable, but usually less than 10% Toxic: 20-30% COHB Lethal: Greater than 60% COHB Methemoglobin, Arterial 0.3 <=1.5 % [facility] Na Whole Blood 132(L) 135 - 145 mmol/L [facility] K Whole Blood 5.9(H) 3.5 - 5.0 mmol/L [facility] Comment: Please note: Patients with WBC >100,000 may have falsely elevated Potassium levels. Contact the Clinical Chemistry Laboratory if there are any questions. ICa Whole Blood 1.02(L) 1.15 - 1.33 mmol/L [facility] Comment: Note: ??Total bilirubin higher than 20 mg/dL may lead to falsely low ionized calcium. CL Whole Blood 104 98 - 107 mmol/L [facility] Gluc Whole Bld 129 65 - 199 mg/dL [facility] Comment:Diabetes: >=200 mg/d L plus symptoms. Lactate WB 1.1 0.5 - 2.2 mmol/L [facility] Blood 02/17/2024 10:4 1 AM EDT 02/17/2024 10:41 AM EDT Hayder Graham MD POINT OF CARE TEST ORDERABLES [facility] [place] [address] * (ABNORMAL) BLOOD GAS 2 ARTERIAL (02/17/2024 10:06 AM EDT) pH, Arterial 7.38 7.35 - 7.45 [facility] PCO2, Arterial 42 35 - 45 mmHg [facility] PO2, Arterial 329(H) 85 - 104 mmHg [facility] Bicarbonate, Arterial 24.7 20.0 - 26.0 mmol/L [facility] Base Excess, Arterial -0.3 -3.0 - 3.0 mmol/L [facility] Hgb Blood Gas 11.0(L) 13.7 - 16.5 g/dL [facility] Oxyhemoglobin, Arterial 99.0(H) 94.0 - 97.0 % [facility] Carboxyhemoglob in, Arterial 0.3 % [facility] Comment: Nonsmokers: 0.5-1.5% COHB Smokers: Variable, but usually less than 10% Toxic: 20-30% COHB Lethal: Greater than 60% COHB Methemoglobin, Arterial 0.3 <=1.5 % [facility] Na Whole Blood 132(L) 135 - 145 mmol/L [facility] K Whole Blood 6.0(H) 3.5 - 5.0 mmol/L [facility] Comment: Please note: Patients with WBC >100,000 may have falsely elevated Potassium levels. Contact the Clinical Chemistry Laboratory if there are any questions. ICa Whole Blood 0.97(L) 1.15 - 1.33 mmol/L [facility] Comment: Note: ??Total bilirubin higher than 20 mg/dL may lead to falsely low ionized calcium. CL Whole Blood 102 98 - 107 mmol/L [facility] Gluc Whole Bld 123 65 - 199 mg/dL [facility] Comment:Diabetes: >=200 mg/d L plus symptoms. Lactate WB 1.1 0.5 - 2.2 mmol/L [facility] Blood 02/17/2024 10:0 6 AM EDT 02/17/2024 10:06 AM EDT Hayder Graham MD POINT OF CARE TEST ORDERABLES [facility] [place] [address] * Surgical Pathology Report (02/17/2024 10:01 AM EDT) Final Diagnosis [id number] ? Location: [facility]; [facility]; The signing pathologist has (i) examined the relevant preparation(s) for the specimen(s) and (ii) rendered or confirmed the diagnosis(es). . ?Surgical Pathology DIAGNOSIS Aortic valve leaflets, excision: Valve leaflets with myxoid degeneration, nodular fibrosis and dystrophic calcifications. Electronically signed by: ?Livier Montoya MD Verified: ??02/24/2024 13:49 ??Pathologist Performed at: ??-[facility] Dept. of Pathology, [place] [address] Financial Recruiter: Job Brewer MD, FCAP, ??IA Certificate: [id number] SPECIMEN(S) SUBMITTED A - Aortic Valve Leaflets, [...] Sections Processing Blocks submitted for decalcification: A1. Fur Joiner sections in 1 cassette labeled A1. ??ajw 02/24/2024 1:49 PM EDT [facility] AORTIC STRUCTURE / Unknown 02/17/2024 10:01 AM EDT 02/17/2024 10:01 AM EDT Hayder Graham MD PATHOLOGY/CYTOLOGY ORDERABLES [facility] [place] [address] * Specimen to Pathology (02/17/2024 10:01 AM EDT) AP Specimen 02/17/2024 10:0 1 AM EDT 02/17/2024 10:01 AM EDT Narrative [facility] - 02/17/2024 10:01 AM EDT Specimen requisition ordered. ??Separate Pathology report to follow Hayder Graham MD PATHOLOGY/CYTOLOGY ORDERABLES Performing Organization Address City/[facility]/ZIP Co de Phone Number [facility] [place] [address] * (ABNORMAL) BLOOD GAS 2 ARTERIAL (02/17/2024 9:35 AM EDT) pH, Arterial 7.33(L) 7.35 - 7.45 [facility] PCO2, Arterial 35 35 - 45 mmHg [facility] PO2, Arterial 318(H) 85 - 104 mmHg [facility] Bicarbonate, Arterial 17.9(L) 20.0 - 26.0 mmol/L [facility] Base Excess, Arterial -8.0(L) -3.0 - 3.0 mmol/L [facility] Hgb Blood Gas 11.0(L) 13.7 - 16.5 g/dL [facility] Oxyhemoglobin, Arterial 98.8(H) 94.0 - 97.0 % [facility] Carboxyhemoglob in, Arterial 0.3 % [facility] Comment: Nonsmokers: 0.5-1.5% COHB Smokers: Variable, but usually less than 10% Toxic: 20-30% COHB Lethal: Greater than 60% COHB Methemoglobin, Arterial 0.3 <=1.5 % [facility] Na Whole Blood 131(L) 135 - 145 mmol/L [facility] K Whole Blood 5.8(H) 3.5 - 5.0 mmol/L [facility] Comment: Please note: Patients with WBC >100,000 may have falsely elevated Potassium levels. Contact the Clinical Chemistry Laboratory if there are any questions. ICa Whole Blood 0.98(L) 1.15 - 1.33 mmol/L [facility] Comment: Note: ??Total bilirubin higher than 20 mg/dL may lead to falsely low ionized calcium. CL Whole Blood 101 98 - 107 mmol/L [facility] Gluc Whole Bld 122 65 - 199 mg/dL [facility] Comment:Diabetes: >=200 mg/d L plus symptoms. Lactate WB 0.8 0.5 - 2.2 mmol/L [facility] Blood 02/17/2024 9:35 AM EDT 02/17/2024 9:35 AM EDT Hayder Graham MD POINT OF CARE TEST ORDERABLES [facility] [place] [address] * (ABNORMAL) BLOOD GAS 2 VENOUS (02/17/2024 9:34 AM EDT) pH, Venous 7.22(Criti marquez) 7.32 - 7.42 [facility] Comment:Noted by instrumentation engineer. PCO2, Venous 43 41 - 51 mmHg [facility] Comment:Noted by instrumentation engineer. PO2, Venous 57(H) 25 - 40 mmHg [facility] Comment:Noted by instrumentation engineer. Bicarbonate, Venous 17.1 mmol/L [facility] Comment:Noted by instrumentation engineer. Base Excess, Venous -10.6 mmol/L [facility] Comment:Noted by instrumentation engineer. Hgb Blood Gas 11.2(L) 13.7 - 16.5 g/dL [facility] Comment:Noted by instrumentation engineer. Oxyhemoglobin, Venous 86.5 % [facility] Comment:Noted by instrumentation engineer. Carboxyhemoglob in, Venous 0.3 % [facility] Comment: Noted by instrumentation engineer. Nonsmokers: 0.5-1.5% COHB Smokers: Variable, but usually less than 10% Toxic: 20-30% COHB Lethal: Greater than 60% COHB Methemoglobin, Venous 0.0 <=1.5 % [facility] Comment:Noted by instrumentation engineer. Na Whole Blood 156(H) 135 - 145 mmol/L [facility] Comment:Noted by instrumentation engineer. K Whole Blood 5.5(H) 3.5 - 5.0 mmol/L [facility] Comment: Noted by instrumentation engineer. Please note: Patients with WBC >100,000 may have falsely elevated Potassium levels. Contact the Clinical Chemistry Laboratory if there are any questions. ICa Whole Blood 1.03(L) 1.15 - 1.33 mmol/L [facility] Comment: Noted by instrumentation engineer. Note: ??Total bilirubin higher than 20 mg/dL may lead to falsely low ionized calcium. CL Whole Blood 100 98 - 107 mmol/L [facility] Comment:Noted by instrumentation engineer. Gluc Whole Bld 132 65 - 199 mg/dL [facility] Comment: Noted by instrumentation engineer. Diabetes: >=200 mg/dL plus symptoms Lactate WB 1.0 0.5 - 2.2 mmol/L [facility] Comment:Noted by instrumentation engineer. Blood Gas Source Venous [facility] Blood 02/17/2024 9:34 AM EDT 02/17/2024 9:34 AM EDT Hayder Graham MD POINT OF CARE TEST ORDERABLES [facility] [place] [address] * (ABNORMAL) BLOOD GAS 2 ARTERIAL (02/17/2024 8:07 AM EDT) pH, Arterial 7.43 7.35 - 7.45 [facility] PCO2, Arterial 34(L) 35 - 45 mmHg [facility] PO2, Arterial 581(H) 85 - 104 mmHg [facility] Bicarbonate, Arterial 21.7 20.0 - 26.0 mmol/L [facility] Base Excess, Arterial -2.6 -3.0 - 3.0 mmol/L [facility] Hgb Blood Gas 14.5 13.7 - 16.5 g/dL [facility] Oxyhemoglobin, Arterial 99.0(H) 94.0 - 97.0 % [facility] Carboxyhemoglob in, Arterial 0.4 % [facility] Comment: Nonsmokers: 0.5-1.5% COHB Smokers: Variable, but usually less than 10% Toxic: 20-30% COHB Lethal: Greater than 60% COHB Methemoglobin, Arterial 0.3 <=1.5 % [facility] Na Whole Blood 139 135 - 145 mmol/L [facility] K Whole Blood 4.0 3.5 - 5.0 mmol/L [facility] Comment: Please note: Patients with WBC >100,000 may have falsely elevated Potassium levels. Contact the Clinical Chemistry Laboratory if there are any questions. ICa Whole Blood 1.09(L) 1.15 - 1.33 mmol/L [facility] Comment: Note: ??Total bilirubin higher than 20 mg/dL may lead to falsely low ionized calcium. CL Whole Blood 106 98 - 107 mmol/L [facility] Gluc Whole Bld 100 65 - 199 mg/dL [facility] Comment:Diabetes: >=200 mg/d L plus symptoms. Lactate WB 1.3 0.5 - 2.2 mmol/L [facility] Blood 02/17/2024 8:07 AM EDT 02/17/2024 8:07 AM EDT Hayder Graham MD POINT OF CARE TEST ORDERABLES Performing Organization Address [facility] Co de Phone Number [facility] [place] [address] * POCT Glucose (02/17/2024 6:38 AM EDT) Glucose, POC 98 65 - 199 mg/dL [facility] Comment: Supplemental ranges: <140 mg/dL before meals <180 mg/dL all other times of the day Blood 02/17/2024 6:38 AM EDT 02/17/2024 6:38 AM EDT Hayder Graham MD POINT OF CARE TEST ORDERABLES Performing Organization Address [facility] de Phone Number [facility] [place] [address] * Transesophageal Echo/OR (02/17/2024 6:33 AM EDT) [...] [facility] [...] dose on Sat02/17/24 at 1400, Until Discontinued, Roper teeth and / or gums. Scan the CHG vial in the [employer] Q-Care Oral Care Kit from floor stock. Ventilator-associated pneumonia prophylaxis For use in ICU/Critical care locations ONLY. Obtain kit from Floor Stock location. Scan CHG vial in the [employer] Q-Care Oral Care Kit, Routine Given 02/17/2024 [...] 50% of previous rate. Call dye house worker if goal not achieved at [...] PHENYLephrine and/or vasopressin ineffective. Call pager # [phone] if initiated. Titrate to keep systolic blood [...] Maximum volume 2 L. Call dye house worker for additional fluid orders: pager #[phone]. Rate/Dose Verify 02/18/2024 8:00 AM EDT 1 mL/hr 1 mL/hr Rate/Dose Verify 02/18/2024 6:00 AM EDT 1 mL/hr 1 mL/hr Rate/Dose Verify 02/18/2024 4:00 AM EDT 1 mL/hr 1 mL/hr sodium chloride 0.9% infusion 10-30 mL/hr, Intravenous, DAILY PRN, Starting on Sat02/17/24 at 1307, Until Sat02/18/24 at 0835, Side port TKO rate, per [facility] nursing protocol. Rate/Dose Verify 02/17/2024 8:00 PM [...] Reilly Vincent, RN) 0907 (Given - Provider: Misehl Merrill, RN) 0836 (Given - Provider: Jazlyn Maldonado, COLBY) timoloL (Timoptic) 0.5 % ophthalmic solution 1 drop 1 drop, Both Eyes, DAILY, First dose on Sat02/18/24 at 0930, Until Discontinued, Routine 0823 (Given - Provider: Reilly Vincent RN) 0908 (Given - Provider: Mishel Merrill, COLBY) 0839 (Given - Provider: Jalzyn Maldonado, COLBY) Continuous Medication Order 02/22/2024 02/23/2024 [...] Routine documented in this encounter Care Teams Garment Tag Stringer Relationship Specialty Start Date End Date Aparna Jordan APRN PCP - General Family Medicine 10/21/23 05/26/24 documented as of this encounter
--- OUTSIDE RECORDS SUMMARY | 2024-09-29 09:58 | XMS_ITS | Encounter Summary ---
Author Organization [facility] Address [facility] [place] [address] Care Team Providers Care Mincemeat Maker Name Role Phone Gino Vanessa Lane DOTSON Primary Care Provider [phone] Encounter Details Date Type Department Care Team (Late st Contact Info) Description 02/24/2024 Orders Only Cardiac Surgery [facility] [place] [id number] Trudi Lester APRN [facility] [place] [address] Social History Tobacco Use Types Packs/Day Years Used Date Smoking Tobacco: Former Cigarettes Smokeless Tobacco: Never Comments:Quit 15 + years ago Alcohol Use Standard Drinks/Week Comments Yes 0 (1 standard drink = 0.6 oz pur e alcohol) rare [facility] Utilities Answer Date Recorded In the past 12 months has e [employer], gas, oil, or water [employer] threatened to shut off services in [...] on filedocumented in this encounter Care Teams Mincemeat Maker Relationship Specialty Start Date End Date Vanessa Christian APRN PCP - General Family Medicine 10/21/23 05/26/24 documented as of this encounter
--- OUTSIDE RECORDS SUMMARY | 2024-09-29 09:58 | XMS_ITS | Encounter Summary ---
[facility] [place] [address] Care Team Providers Care Asset Protection Lead Name Role Phone Aparna Jordan MAURI Primary Care Provider [phone] Reason for Visit * Auth/Cert (Routine) Specialty [...] GRAFT (WRVU 7.93) Hayder Graham MD [facility] [place] [address] [facility] Referral ID Status Reason Start Date Expiration Date Visits Re quested Visits Authorized [id number] 1 1 Encounter Details Date Type Department Care Team (Late st Contact Info) Description 02/17/2024 7:30 AM EDT - 02/17/2024 1:26 PM EDT Surgery [place] [id number] Hayder Graham MD [facility] [place] [address] ENDOSCOPIC HARVEST VEIN(S) FOR CABG (WRVU 0.31) [...] Patient Age: 63 y.o. Birthdate: 1960 Language: Greenlandic Race: White Ethnicity: Not nor Admit Date: 02/17/2024 Discharge Date: 02/24/24 Attending Physician: Hayder Graham MD Follow-up Recommendations for Providers: Please continue routine management of cardiovascular risk factors including blood pressure, lipids,glucose, etc. Please note any changes to medications. Patient to follow up with PCP, Aparna Jordan APRN, in 1-2 weeks. Patient to follow up with Mountain Guide, Neftali Ernandez MD , in 2 weeks. Patient to follow up with Cardiac Surgeon, Dr. Hayder Graham, with a chest x-ray, EKG, and Echo. 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 Right nondenominational Past Surgical History: Procedure Laterality Date PRO CABG, ARTERIAL, SINGLE N/A 02/17/2024 @CABG, USING ARTERIAL GRAFT;SINGLE ARTERIAL GRAFT (WRVU 33.75) performed by Hayder Graham MD at [facility] MAIN OR PRO CABG, ARTERY-VEIN, TWO N/A 02/17/2024 @CABG, TWO VENOUS GRAFTS & ARTERIAL GRAFT (WRVU 7.93) performed by Hayder Graham MD at [facility] MAIN OR PRO ENDOSCOPY W/VIDEO-ASST VEIN HARVEST, CABG Left 02/17/2024 ENDOSCOPIC HARVEST VEIN(S) FOR CABG (WRVU 0.31) performed by Hayder Graham MD at [facility] MAIN OR PRO REPLACEMENT PROSTHETIC AORTIC VALVE OPEN W CARDIOPULMONARY BYPASS HOMOGRF/STENT N/A 02/17/2024 @REPLACE AORTIC VALVE, OPEN, W\CPB, W\PROSTHETIC VALVE (WRVU 41.32) performed by Hayder Graham MD at [facility] MAIN OR Prior To Admission Medications [...] insufficiency. He has glaucoma. He used to bacmadvertise until about 15 years ago. He has undergone prior herniorrhaphy. 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 Major Procedures/Operations: 02/17/24 s/p avr/cabgx3 CABG x 3 JOSE->LAD SVG->dRCA SVG->OM1 EVH from LLE AVR with a 23 mm Inspiris Bioprosthesis Hospital Course: Karlos Garcia was admitted to [facility] on 02/17/2024 via the Same Day [...] Hayder Graham and/or the Cardiac Surgery Physician Chair Team may be reached at . Antibiotic [...] Dr. Hayder Graham. You may use a Universal Track or treadmill but avoid any pulling [...] friends, go to a movie, go to episcopal, etc. Heavy activities: No hunting, skiing, jogging, [...] while being managed by your PCP and/or Mountain Guide. For future medication refills, please refer to your PCP and/or Mountain Guide after your discharge from our service. Thank you REMOVE CHEST TUBE SUTURES ON OR AFTER 03/02/24 Home oxygen therapy: N/A Follow up appointments: You should follow up with your PCP, Aparna Jordan APRN, in 1-2 weeks. Our office will schedule an appointment with your Mountain Guide, Neftali Ernandez MD , in 2 weeks. [...] Future Orders Complete By Expires Echocardiogram Transthoracic [38550 CPT(R)] 03/26/2024 09/25/2024 Process Instructions: Scheduling Instructions: Questions: Where will study be performed?: [facility] Clinics Does the patient have Congenital Heart Disease?: Does patient require sedation?: Sedation rationale: XR Chest PA & Lateral (Generic) [27886 31824 Custom] 03/26/2024 09/25/2024 Process Instructions: Scheduling Instructions: Questions: Portable exam?: Reason for exam and clinical history: s/p avr/cabg Clinical information / jerome questions for radiologist: Stat read required?: Date of injury if applicable: Requested Time: Where will study be performed?: [facility] Radiology Referral to Cardiac Rehab [BPN780 Custom] As directed Process Instructions: If no [...] to Home Health. [address] Phone Number: Date of : 1960 Inpatient DOCUMENTATION FOR VNA SERVICES (INCLUDING THOSE PATIENTS WITH MEDICARE COVERAGE REQUIRING HOME VNA SERVICES AND/OR HOSPICE SERVICES) PATIENT'S LOCATION: Karlos Garcia [address] [place] [phone] Drawbridge Tender's Name: self/family In discussion with the attending physician, it is certified that this patient is under their care and that they, or a Nurse Practitioner, or Physician Chair who is working directly with them, hada [...] for services as follows: HOME HEALTH AGENCY: [facility] [address] [place] [address] RN orders: Cardiopulmonary assessment, incisional assessment, assess [...] issues please call the Cardiology Office at [phone] FOR MEDICARE ONLY: (please delete this section [...] [facility] Section of Cardiac Surgery [facility] [place] [address] FAX [phone] Date: 02/24/2024 CC: Aparna Jordan, MAURI Jordan, Aparna Sherman APRN [address] [place] [address] documented in this encounter Discharge Instructions * [...] Hayder Graham and/or the Cardiac Surgery Physician Chair Team may be reached at . Antibiotic [...] Dr. Hayder Graham. You may use a Universal Track or treadmill but avoid any pulling [...] friends, go to a movie, go to episcopal, etc. Heavy activities: No hunting, skiing, jogging, [...] while being managed by your PCP and/or Mountain Guide. For future medication refills, please refer to your PCP and/or Mountain Guide after your discharge from our service. Thank you REMOVE CHEST TUBE SUTURES ON OR AFTER 03/02/24 Home oxygen therapy: N/A Follow up appointments: You should follow up with your PCP, Aparna Jordan APRN, in 1-2 weeks. Our office will schedule an appointment with your Mountain Guide, Neftali Ernandez MD , in 2 weeks. [...] 0600 and on the weekends please page [phone]. * Eric Barahona PA - 02/23/2024 9:27 [...] 0600 and on the weekends please page [phone]. * Tiffanie Owens, INVENTORY ADMINISTRATOR - 02/22/2024 2:48 PM EDT Physical Therapy [...] d/c for 10 days. 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 He works Precautions/Special Considerations: [...] LRAD and supervision Time IN / OUT: 1341-8199 Total Time: 30 minutes; TEFx2 Tiffanie Owens Pager: [phone] Physical Therapy Inpatient Rehabilitation Department * Romeo [...] 0600 and on the weekends please page [phone]. * Kelley Hinson INVENTORY ADMINISTRATOR - 02/21/2024 10:15 AM EDT Physical [...] d/c for 10 days. 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 He works Precautions/Special Considerations: [...] LRAD and supervision Time IN / OUT: 3445-5910 Total Time: 25 minutes; TEF 2 Kelley [...] 0600 and on the weekends please page [phone]. * Kelley Hinson PTA - 02/20/2024 3:32 [...] at that time Kelley Hinson PTA Pager: [phone] Physical Therapy Inpatient Rehab Department * Louisa [...] 0600 and on the weekends please page [phone]. * Maris Benavides, PT - 02/19/2024 11:22 [...] d/c for 10 days. 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 He works. Precautions/Special Considerations: [...] outlined inthis evaluation. MARIS BENAVIDES, PT Pager: [phone] Physical Therapy Inpatient Rehabilitation Department Time IN / OUT: 2104-5971 Total Time: 38 (eval) minutes; * Antonio [...] 0600 and on the weekends please page [phone]. * Minnie Begum PA - 02/18/2024 8:25 [...] 0600 and on the weekends please page [phone]. * Kim Ha RCP - 02/17/2024 2:25 [...] plan since last visit. Hayder Graham MD [phone] Source Note - Hayder Graham MD - [...] given written informed consent. Hayder Graham MD [phone] * Hayder Graham MD - 02/17/2024 7:00 [...] given written informed consent. Hayder Graham MD [phone] documented in this encounter Miscellaneous Notes * [...] for follow-up Home Health & Hospice, [address] [place] [address] Cardiac Rehab, [address] [place] [address] Transportation: family or friend will provide Functional status prior to admission: Independent Home Environment: Others in the home: alone. Current Living Arrangements: home/apartment/condo. Accessibility Concerns:a few steps to enter 1 floor home. Current Functional Ability: Assistive Person and Equipment DME used at home: none DME Needed at Discharge: N/A Patient is insured through: Primary Insurance: [employer] Payor: [facility] / Plan: [facility] PPO / Product Type: [...] pain managed with scheduled Tylenol. Worked with [employer]. Ambulated in the roque multiple times during [...] is insured through: Primary Insurance: [facility] Payor: [facility] / Plan: [facility] PPO / Product Type: [...] Services: Physical Therapy, Registered Nurse Agency Referrals: [facility] [address] [place] [address] Transportation: family or friend will provide Barriers to discharge: Discharge planning Plan going forward: Service Care Management will continue to follow and assist with discharge planning and coordination of care as indicated. 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 (Only good for 180 days) Any patient receiving care in [place] must abide by [place] law. The hierarchy [...] (i) The agent with financial power of estate planning attorney or a conservator appointed in accordance [...] steady place to sleep or slept in [facility] (including now)?: No In the past 12 months has the [employer], gas, oil, or water [employer] threatened to shut off services in your [...] confirmed as: [address] [facility] [address] Physical address: [address] [facility], [address] Social & Family Supports: All names listed [...] noted Health/Prescription Coverage: Primary Insurance: [facility] Payor: [facility] / Plan: [facility] PPO / Product Type: *No Product type* / Secondary Insurance: N/A ; Prescription Coverage: Yes Preferred Pharmacy: [id number] [address] [place] Status: Patient is a : No Primary Care Provider confirmed: Aparna Jordan, MAURI [phone] Patient/Caregiver Goals of Treatment: dc to home Potential Needs for Transition of Care: home health care Agency Referrals: I have met with the patient to: discuss discharge planning needs. provide the [facility], Office of Care Management letter from the Sleeping Room Cleaner pertaining to rehab referrals. provide a letter describing our affiliations within the [facility] and educate about their right to choose where referrals are sent. provide a list of Home Health Agencies / Durable Medical Equipment vendors which serve their preferred geographic area. provided patient with [facility] Star Quality Rating handout. They have requested referrals to: [facility] [address] [place] [address] Note routed to a Driver'S License Reviewing Officer who will communicate referrals to facilities and [...] Reina Greene RN CM, BSN, CMGT-BC Ext [phone] * Plan of Care - Binta Trinidad [...] Operative Note Patient Name: Karlos Garcia : [id number] MR#: [id number] Case Date: 02/17/2024 Surgeon: Surgeon(s) and Role: * Hayder Graham MD - Primary * Neftali Menon PA - Physician Chair Preoperative diagnosis: CAD Postoperative diagnosis: CAD, intraoperative [...] Drains: Mediastinal and Left pleural Disposition: [facility] Condition: doing well without problems Attestation: Case Date: 02/17/2024 I performed this procedure without the involvement of a resident. HAYDER GRAHAM MD 02/17/2024 * Op Note - Hayder Graham MD - 02/17/2024 8:20 AM EDT [facility] Operative Note Patient Name: Karlos Garcia : [id number] MR#: [id number] Case Date: 02/17/2024 Surgeon: Surgeons and Role: * Hayder Graham MD - Primary * Neftali Menon PA - Physician Chair Preoperative diagnosis: CAD Postoperative diagnosis: CAD, intraoperative [...] Drains: Mediastinal and Left pleural Disposition: [facility] Procedure Description: The patient was brought to [...] Aortic Valve Open W Cardiopulmonary Bypass Homogrf/Stent (95132) Yes 02/17/2024 7:28 AM EDT CAD Cabg, Artery-Vein, Two (82876) Yes 02/17/2024 7:28 AM EDT CAD Cabg, Arterial, Single (45611) Yes 02/17/2024 7:28 AM EDT CAD Endoscopy W/Video-Asst Vein [place], Cabg (07073) Yes 02/17/2024 7:28 AM EDT CAD POCT [...] CHEMISTRY ORDERABLE S [facility] [place] [address] * (ABNORMAL) Basic Metabolic Panel (non-fasting) (02/23/2024 [...] Organization Address [facility] Co de Phone Number [facility] [place] [address] * Potassium (02/22/2024 4:30 AM EDT) Potassium [...] Organization Address [facility] Co de Phone Number [facility] [place] [address] * (ABNORMAL) Basic Metabolic Panel (non-fasting) (02/21/2024 [...] MD CHEMISTRY ORDERABLES [facility] [place] [address] * Lactate, whole blood, send to lab ([facility]) (02/21/2024 9:45 AM EDT) Lactate WB 2.0 0.5 - 2.2 mmol/L [facility] Blood 02/21/2024 9:45 AM EDT 02/21/2024 9:52 AM EDT Narrative Resulting Agency Comment Spec In Lab Hayder Graham MD CHEMISTRY ORDERABLE S Performing Organization Address City/[facility]/ZIP Co de Phone Number [facility] [place] [address] * (ABNORMAL) Hepatic Function Panel (02/21/2024 9:45 AM EDT) Pathologist [facility] Protein, Total 5.7(L) 6.1 - 8.0 [...] MD CHEMISTRY ORDERABLE S Performing Organization Address City/[facility]/ZIP Co de Phone Number [facility] [place] [address] * Lipase (02/21/2024 9:45 AM EDT) Pathologist [facility] Lipase 56 0 - 60 unit/L [facility] Blood 02/21/2024 9:45 AM EDT 02/21/2024 9:52 AM EDT Narrative Resulting Agency Comment Spec In Lab Hayder Graham MD CHEMISTRY ORDERABLE S Performing Organization Address [facility] Co de Phone Number [facility] [place] [address] * Amylase (02/21/2024 9:45 AM EDT) Amylase 69 28 - 100 unit/L [facility] Blood 02/21/2024 9:45 AM EDT 02/21/2024 9:52 AM EDT Narrative Resulting Agency Comment Spec In Lab Hayder Graham MD CHEMISTRY ORDERABLE S Performing Organization Address [facility] de Phone Number [facility] [place] [address] * Potassium (02/21/2024 3:08 AM EDT) Pathologist [facility] Potassium 3.8 3.5 - 5.0 mmol/L [...] Organization Address [facility] Co de Phone Number [facility] [place] [address] * XR Chest PA & Lateral (Generic) (02/20/2024 10:19 AM EDT) WORKSTATION ID [id number] RAD Anatomical Region Laterality Modality Chest N/A [...] 02/17/2024 FINDINGS: Support devices: Interval removal of Eugene-Kaila catheter, endotracheal tube and mediastinal chest tubes The cardiac silhouette is stable status post median sternotomy, CABG and aortic valve replacement. There are small pleural effusions. No pneumothorax. Procedure Note Rogerio Cruz MD - 02/20/2024 EXAMINATION: XR CHEST PA AND LATERAL (GENERIC) CLINICAL HISTORY: s/p AVR/CABGx3 TECHNIQUE: PA and lateral views of the chest COMPARISON: 02/17/2024 FINDINGS: Support devices: Interval removal of Eugene-Kaila catheter, endotracheal tubeand mediastinal chest tubes The [...] healthcare specialist that requested your imaging first. Hayder Graham MD IMG DX ORDERABLES * Scan, Peripheral Blood (02/20/2024 4:23 AM EDT) Plat estimate Decreased [facility] RBC Morphology Normal [facility] Blood 02/20/2024 4:23 AM EDT 02/20/2024 4:42 AM EDT Narrative Resulting Agency Comment Spec In Lab Minnie FRENCH HEMATOLOGY CECILIO ALEMAN [facility] [place] [address] * (ABNORMAL) Differential, Automated (02/20/2024 4:23 AM EDT) Pathologist [facility] Neutrophil % 81.7 % [facility] Neutrophil Absolute 10.37(H) 1.70 - 6.10 x10(3)/mc L [facility] Lymph % 7.4 % [facility] Lymphocytes Abs 0.9 0.9 - 3.2 x10(3)/mc L [facility] Monocyte % 9.7 % [facility] Monocyte Abs 1.2(H) 0.3 - 0.9 x10(3)/mc L [facility] Eos % 0.1 % [facility] Eosinophils Abs 0.0 0.0 - 0.4 x10(3)/mc L [facility] Basophil % 0.2 % [facility] [...] 0.12(H) 0.00 - 0.04 x10(3)/ L [facility] Blood 02/20/2024 4:23 AM EDT 02/20/2024 4:42 AM EDT Narrative Resulting Agency Comment Spec In Lab Minnie FRENCH HEMATOLOGY CECILIO ALEMAN [facility] [place] [address] * (ABNORMAL) Hemogram (02/20/2024 4:23 AM EDT) White Blood Cell 12.7(H) 4.0 - 9.5 x10(3)/[facility] LABORATORY Red Blood Cell 4.26(L) 4.58 - 5.54 x10(6)/[facility] LABORATORY Hemoglobin 12.3(L) 13.7 - 16.5 g/dL [facility] Hematocrit 37.1(L) 40.5 - 48.5 % [facility] Mean Cell Volume 87.1 82.9 - 93.1 [facility] Mean Cell Hemoglobin 28.9 27.5 - 32.1 pg [facility] Mean Cell Hemoglobin Concentration 33.2 32.0 - 35.7 g/dL [facility] Platelet 88(L) 145 - 357 x10(3)/[facility] LABORATORY RDW Standard Deviation 43.5 36.0 - 45.0 [facility] RDW coefficient of variation 13.7 11.4 - 13.8 % [facility] Mean Platelet Volume 10.2 7.6 - 12.9 [facility] LAB[facility]ORY NRBC% auto 0.0 % [facility] NRBC Absolute 0.000 0.000 - 0.000 x10(3)/ L [facility] Blood 02/20/2024 4:23 AM EDT 02/20/2024 4:42 AM EDT Narrative Resulting Agency Comment Spec In Lab Minnie FRENCH HEMATOLOGY CECILIO ALEMAN [facility] [place] [address] * (ABNORMAL) Basic Metabolic Panel (non-fasting) (02/20/2024 [...] MD CHEMISTRY ORDERABLE S Performing Organization Address City/[facility]/ZIP Co de Phone Number [facility] [place] [address] * Potassium (02/19/2024 3:57 AM EDT) Potassium [...] Organization Address [facility] Co de Phone Number [facility] [place] [address] * POCT Glucose (02/18/2024 8:24 AM EDT) Glucose, POC 157 65 - 199 mg/dL [facility] Comment: Supplemental ranges: <140 mg/dL before meals <180 mg/dL all other times of the day Blood 02/18/2024 8:24 AM EDT 02/18/2024 8:24 AM EDT Hayder Graham MD POINT OF CARE TEST ORDERABLES Performing Organization Address [facility]/ZIP Co de Phone Number [facility] [place] [address] * Scan, Peripheral Blood (02/18/2024 1:40 AM EDT) Plat estimate Decreased [facility] RBC Morphology Normal [facility] Blood 02/18/2024 1:40 AM EDT 02/18/2024 1:56 AM EDT Narrative Resulting Agency Comment Spec In Lab Neftali FRENCH HEMATOLOGY ORDER OLE [facility] [place] [address] * (ABNORMAL) Differential, Automated (02/18/2024 1:40 AM EDT) Neutrophil % 87.1 % [facility] Neutrophil Absolute 15.03(H) 1.70 - 6.10 x10(3)/mc L [facility] Lymph % 3.0 % [facility] Lymphocytes Abs 0.5(L) 0.9 - 3.2 x10(3)/mc L [facility] Monocyte % 9.1 % [facility] Monocyte Abs 1.6(H) 0.3 - 0.9 x10(3)/mc L [facility] Eos % 0.0 % [facility] Eosinophils Abs 0.0 0.0 - 0.4 x10(3)/mc L [facility] Basophil % 0.2 % [facility] [...] HEMATOLOGY ORDER OLE [facility] [place] [address] * (ABNORMAL) Hemogram (02/18/2024 1:40 AM EDT) [...] [facility] NRBC% auto 0.0 % [facility] NRBC Absolute 0.000 0.000 - 0.000 x10(3)/mc L [facility] Blood 02/18/2024 1:40 AM EDT 02/18/2024 1:56 AM EDT Narrative Resulting Agency Comment Spec In Lab Neftali FRENCH HEMATOLOGY ORDER OLE [facility] [place] [address] * (ABNORMAL) Basic Metabolic Panel (non-fasting) (02/18/2024 [...] CHEMISTRY ORDERABLE S [facility] [place] [address] * (ABNORMAL) Troponin (02/18/2024 1:40 AM EDT) [...] [facility] Test Catalog Reference: Fourth [place] Definition of Myocardial Infarction. Journal of the [place] [employer] 2018;72:0532-2041 Blood 02/18/2024 1:40 AM EDT 02/18/2024 1:56 AM EDT Narrative Resulting Agency Comment Spec In Lab Hayder Graham MD CHEMISTRY ORDERABLE S [facility] [place] [address] * POCT Glucose (02/17/2024 8:13 PM EDT) Glucose, POC 142 65 - 199 mg/dL [facility] Comment: Supplemental ranges: <140 mg/dL before meals <180 mg/dL all other times of the day Blood 02/17/2024 8:13 PM EDT 02/17/2024 8:13 PM EDT Hayder Graham MD POINT OF CARE TEST ORDERABLES Performing Organization Address [facility] Co de Phone Number [facility] [place] [address] * POCT Glucose (02/17/2024 5:42 PM EDT) Glucose, POC 160 65 - 199 mg/dL [facility] Comment: Supplemental ranges: <140 mg/dL before meals <180 mg/dL all other times of the day Blood 02/17/2024 5:42 PM EDT 02/17/2024 5:42 PM EDT Hayder Graham MD POINT OF CARE TEST ORDERABLES Performing Organization Address [facility] Co de Phone Number [facility] [place] [address] * Hemoglobin (02/17/2024 5:42 PM EDT) [facility] Signature Hemoglobin 13.7 13.7 - 16.5 g/dL [facility] Blood 02/17/2024 5:42 PM EDT 02/17/2024 6:10 PM EDT Narrative Resulting Agency Comment Spec In Lab Hayder Graham MD HEMATOLOGY ORDERABL ES Performing Organization Address [facility] [facility] Co de Phone Number [facility] [place] [address] * Potassium (02/17/2024 5:42 PM EDT) [facility] Signature Potassium 4.3 3.5 - 5.0 mmol/L [facility] [...] CHEMISTRY ORDERABLE S [facility] [place] [address] * (ABNORMAL) BLOOD GAS 2 ARTERIAL (02/17/2024 [...] [facility] PF Ratio Art [address] [facility] Blood 02/17/2024 4:18 PM EDT 02/17/2024 4:18 PM EDT Hayder Graham MD POINT OF CARE TEST ORDERABLES [facility] [place] [address] * XR Chest One View (02/17/2024 1:44 PM EDT) [employer] WORKSTATION ID [id number] DH RAD Anatomical Region Laterality Modality Chest N/A Digital Radiogra phy Impressions 02/17/2024 2:12 PM EDT 1. ??No definite pleural fluid collection or pneumothorax. 2. ??Right IJ Eugene-Kaila catheter tip terminates in a descending branch [...] 5.2 cm above the carlos. Right IJ Eugene-Kaila catheter tip terminates in a descending branch [...] 5.2 cm above the carlos. Right IJ Eugene-Ganzcatheter tip terminates in a descending branch of [...] fluid collection or pneumothorax. 2. Right IJ Eugene-Kaila catheter tip terminates in a descending branch [...] healthcare specialist that requested your imaging first. Hayder [...] [facility] PF Ratio Art [address] [facility] Blood 02/17/2024 1:31 PM EDT 02/17/2024 1:31 PM EDT Hayder Graham MD POINT OF CARE TEST ORDERABLES [facility] [place] [address] * (ABNORMAL) Coox2 (02/17/2024 1:21 PM EDT) [...] OF CARE TEST ORDERABLES Performing Organization Address City/[facility]/ZIP Co de Phone Number [facility] [place] [address] * (ABNORMAL) BLOOD GAS 2 ARTERIAL (02/17/2024 [...] Organization Address [facility] Co de Phone Number [facility] [place] [address] * (ABNORMAL) Fibrinogen (02/17/2024 12:10 PM EDT) [...] Organization Address [facility] Co de Phone Number [facility] [place] [address] * (ABNORMAL) Thrombin time (02/17/2024 12:10 PM [...] Organization Address [facility] Co de Phone Number [facility] [place] [address] * APTT (02/17/2024 12:10 PM EDT) Partial [...] Organization Address [facility] Co de Phone Number [facility] [place] [address] * (ABNORMAL) Prothrombin Time (02/17/2024 12:10 PM [...] HEMATOLOGY ORDERABLE S [facility] [place] [address] * (ABNORMAL) Hemogram (02/17/2024 12:10 PM EDT) [...] [facility] NRBC% auto 0.0 % [facility] NRBC Absolute 0.000 0.000 - 0.000 x10(3)/mc L [facility] Blood 02/17/2024 12:1 0 PM EDT 02/17/2024 12:19 PM EDT Narrative Resulting Agency Comment Spec In Lab Tara York MD HEMATOLOGY ORDERABLE S [facility] [place] [address] * (ABNORMAL) BLOOD GAS 2 ARTERIAL (02/17/2024 [...] [facility] Comment: Noted by instrument and [...] CARE TEST ORDERABLES [facility] [place] [address] * (ABNORMAL) BLOOD GAS 2 ARTERIAL (02/17/2024 [...] [facility] Comment: Noted by instrument and [...] Organization Address [facility] de Phone Number [facility] [place] [address] * (ABNORMAL) Hemoglobin and Hematocrit, blood (02/17/2024 [...] Organization Address [facility] de Phone Number [facility] [place] [address] * (ABNORMAL) Platelet count (02/17/2024 11:04 AM EDT) Platelet 106(L) 145 - 357 x10(3)/mc L [facility] Immature Plt % 1.6 0.0 - 7.4 % [facility] Comment: Limitation of the Immature Platelet Fraction (IPF)-May be less reliable when the platelet count is less than 02o920/uL due to statistical imprecision. The IPF value [...] in a decreased state of production. References: [employer] The Clinical Value of the Immature Platelet Fraction (IPF) in Cell Recovery Document Number 10-1143 03/2011 [employer] The Role of the Immature Platelet Fraction (IPF) in the Differential Diagnosis of Thrombocytopenia, Document MKT-[id number] V002/15/14 Blood 02/17/2024 11:0 4 AM EDT 02/17/2024 11:12 AM EDT Narrative Resulting Agency Comment Spec In Lab Hayder Graham MD HEMATOLOGY ORDERABL ES Performing Organization Address City/[facility]/ZIP Co de Phone Number [facility] [place] [address] * (ABNORMAL) Fibrinogen (02/17/2024 11:04 AM EDT) [...] MD HEMATOLOGY ORDERABL ES Performing Organization Address City/[facility]/ZIP Co de Phone Number [facility] [place] [address] * (ABNORMAL) BLOOD GAS 2 ARTERIAL (02/17/2024 [...] TEST ORDERABLES [facility] [place] [address] * (ABNORMAL) BLOOD GAS 2 ARTERIAL (02/17/2024 [...] HEALTH CARE FACILITY Co de Phone Number [facility] [place] [address] * Surgical Pathology Report (02/17/2024 10:01 AM EDT) Final Diagnosis [id number] ? Location: [facility]; [facility][note 3]; The signing pathologist has (i) examined the relevant preparation(s) for the specimen(s) and (ii) rendered or confirmed the diagnosis(es). . ?Surgical Pathology DIAGNOSIS Aortic valve leaflets, excision: Valve leaflets with myxoid degeneration, nodular fibrosis and dystrophic calcifications. Electronically signed by: ?Lindsay FERNANDEZ, Livier Gonzalez Verified: ??02/24/2024 13:49 ??Pathologist Performed at: ??-[facility] Dept. of Pathology, [place] [address] Sleeping Room Cleaner: Job Brewer MD, FCAP, ??CLIA Certificate: [id number] SPECIMEN(S) SUBMITTED A - Aortic Valve Leaflets, [...] Sections Processing Blocks submitted for decalcification: A1. Cigar Maker sections in 1 cassette labeled A1. ??ajw 02/24/2024 1:49 PM EDT [facility] AORTIC STRUCTURE / Unknown 02/17/2024 10:01 AM EDT 02/17/2024 10:01 AM EDT Hayder Graham MD PATHOLOGY/[place] [address] * Specimen to Pathology (02/17/2024 10:01 AM EDT) AP Specimen 02/17/2024 10:0 1 AM EDT 02/17/2024 10:01 AM EDT Narrative [facility] - 02/17/2024 10:01 AM EDT Specimen requisition ordered. ??Separate Pathology report to follow Hayder Graham MD PATHOLOGY/CYTOLOGY ORDERABLES [facility] [place] [address] * (ABNORMAL) BLOOD GAS 2 ARTERIAL (02/17/2024 [...] CARE TEST ORDERABLES [facility] [place] [address] * (ABNORMAL) BLOOD GAS 2 VENOUS (02/17/2024 9:34 AM EDT) pH, Venous 7.22(Criti marquez) 7.32 - 7.42 [facility] Comment:Noted by instrument and electrical technician. PCO2, Venous 43 41 - 51 mmHg [facility] Comment:Noted by instrument and electrical technician. PO2, Venous 57(H) 25 - 40 mmHg [facility] Comment:Noted by instrument and electrical technician. Bicarbonate, Venous 17.1 mmol/L [facility] Comment:Noted by instrument and electrical technician. Base Excess, Venous -10.6 mmol/L [facility] Comment:Noted by instrument and electrical technician. Hgb Blood Gas 11.2(L) 13.7 - 16.5 g/dL [facility] Comment:Noted by instrument and electrical technician. Oxyhemoglobin, Venous 86.5 % [facility] Comment:Noted by instrument and electrical technician. Carboxyhemoglob in, Venous 0.3 % [facility] Comment: Noted by instrument and electrical technician. Nonsmokers: 0.5-1.5% COHB Smokers: Variable, but usually less than 10% Toxic: 20-30% COHB Lethal: Greater than 60% COHB Methemoglobin, Venous 0.0 <=1.5 % [facility] Comment:Noted by instrument and electrical technician. Na Whole Blood 156(H) 135 - 145 mmol/L [facility] Comment:Noted by instrument and electrical technician. K Whole Blood 5.5(H) 3.5 - 5.0 mmol/L [facility] Comment: Noted by instrument and electrical technician. Please note: Patients with WBC >100,000 may have falsely elevated Potassium levels. Contact the Clinical Chemistry Laboratory if there are any questions. ICa Whole Blood 1.03(L) 1.15 - 1.33 mmol/L [facility] Comment: Noted by instrument and electrical technician. Note: ??Total bilirubin higher than 20 mg/dL may lead to falsely low ionized calcium. CL Whole Blood 100 98 - 107 mmol/L [facility] Comment:Noted by instrument and electrical technician. Gluc Whole Bld 132 65 - 199 mg/dL [facility] Comment: Noted by instrument and electrical technician. Diabetes: >=200 mg/dL plus symptoms Lactate WB 1.0 0.5 - 2.2 mmol/L [facility] Comment:Noted by instrument and electrical technician. Blood Gas Source Venous [facility] Blood 02/17/2024 9:34 AM EDT 02/17/2024 9:34 AM EDT Hayder Graham MD POINT OF CARE TEST ORDERABLES [facility] [place] [address] * (ABNORMAL) BLOOD GAS 2 ARTERIAL (02/17/2024 [...] OF CARE TEST ORDERABLES Performing Organization Address City/[facility]/ZIP Co de Phone Number [facility] [place] [address] * POCT Glucose (02/17/2024 6:38 AM EDT) Glucose, POC 98 65 - 199 mg/dL [facility] Comment: Supplemental ranges: <140 mg/dL before meals <180 mg/dL all other times of the day Blood 02/17/2024 6:38 AM EDT 02/17/2024 6:38 AM EDT Hayder Graham MD POINT OF CARE TEST ORDERABLES Performing Organization Address [facility] Co de Phone Number [facility] [place] [address] * Transesophageal Echo/OR (02/17/2024 6:33 AM EDT) [...] [facility] [...] Polo Britton, COLBY) 09 (Given - Provider: Msihel Merrill, COLBY)1500 (Given - Provider: Mishel Merrill, [...] RN) 0836 (Not Given - Provider: Jazlyn Maldonaod RN - Reason: Patient/family refused) metoprolol tartrate [...] Routine documented in this encounter Care Teams Asset Protection Lead Relationship Specialty Start Date End Date Aparna Jordan APRN PCP - General Family Medicine 10/21/23 05/26/24 documented as of this encounter
--- OUTSIDE RECORDS SUMMARY | 2024-09-29 09:58 | XMS_ITS | Encounter Summary ---
Author Organization Formerly [facility]ana [facility] [place] [address] Care Team Providers Care Vocational Instructor Name Role Phone Vanessa Christian MAURI [...] GRAFT (WRVU 7.93) Zak Farmer MD [facility] [place] [address] [facility] Referral ID Status Reason Start Date Expiration Date Visits Re quested Visits Authorized [id number] 1 1 Encounter Details Date Type Department Care Team (Late st Contact Info) Description 02/17/2024 7:35 AM EDT Anesthesia Event Main Operating Room [facility] [place] [id number] Roman York MD [facility] [place] [address] Anesthesia Record Procedure Summary Procedure Name Responsible [...] posterior to heart; 02/18/24; 92902/17/24 0000 by rDiss Moncada RN 02/18/24 0930 by Sadiq Woo RN PIV 02/17/24; 0715; [id number] catheter system; 18 gauge; cephalic vein (lateral [...] th e electric, gas, oil, or water [employer] threatened to shut off services in your [...] / Location: [facility] OR [address] [place] [address] MAIN OR Anesthesia Start: 734 Anesthesia Stop: [...] shown include unfiled device data. Patient Location: [facility] Level of Consciousness: Sedated (Pharmacologic/Intentional) Pain [...] 08/14/2023 ??? Nevus of face 09/26/2023 Right denominational No past surgical history on file. Social [...] mg documented in this encounter Care Teams Vocational Instructor Relationship Specialty Start Date End Date Vanessa Christian APRN PCP - General Family Medicine 10/21/23 05/26/24 documented as of this encounter
--- OUTSIDE RECORDS SUMMARY | 2024-09-29 09:59 | XMS_ITS | Encounter Summary ---
Author Organization [facility] [place] [address] Care Team Providers Care Electrical Products Sales Engineer Name Role Phone Vanessa Christian APRN Primary Care Provider [phone] Encounter Details Date Type Department Care Team [...] on filedocumented in this encounter Care Teams Electrical Products Sales Engineer Relationship Specialty Start Date End Date Vanessa Christian APRN PCP - General Family Medicine 10/21/23 05/26/24 documented as of this encounter
--- OUTSIDE RECORDS SUMMARY | 2024-09-29 09:59 | XMS_ITS | Encounter Summary ---
Author Organization [facility] Address [facility] [place] [address] Care Team Providers Care Urology Physician Name Role Phone Vanessa Christian MAURI Primary Care Provider [phone] Encounter Details Date Type Department Care Team (Late st Contact Info) Description 02/14/2024 Orders [place] [id number] Zak Farmer MD [facility] DR CARDIOTHORACIC [place] [address] Coronary artery disease, unspecified vessel or lesion type, unspecified whether angina present, unspecified whether stebbins or transplanted heart (Primary Dx) Social History [...] 401 ms MUSE SYSTEM Calculated P [place] -12 degrees MUSE SYSTEM Calculated R [place] 24 degrees MUSE SYSTEM Calculated T [place] 74 degrees MUSE SYSTEM INTERPRETATION Sinus bradycardia T wave abnormality, consider anterior ischemia Abnormal ECG When compared with ECG of 17-FEB-2024 13:24, GA interval has decreased T wave inversion now evident in Anterior leads Confirmed by Paul Guzman ([id number]) on 03/15/2024 8:36:23 AM MUSE SYSTEM 03/12/2024 2:35 PM EDT 03/15/2024 8:36 AM EDT Zak Farmer MD ECG ORDERABLES MUSE SYSTEM * XR Chest PA & Lateral (Generic) (03/12/2024 1:42 PM EDT) Pathologist [facility] WORKSTATION ID [id number] [facility] Anatomical Region Laterality Modality Chest N/A Digital [...] angina present, unspecified whether stebbins or transplanted heart- Primary Coronary artery disease, unspecified vessel or lesion type, unspecified whether angina present, unspecified whether stebbins or transplanted heart documented in this encounter Care Teams Urology Physician Relationship Specialty Start Date End Date Vanessa Christian APRN PCP - General Family Medicine 10/21/23 05/26/24 documented as of this encounter
--- OUTSIDE RECORDS SUMMARY | 2024-09-29 09:59 | XMS_ITS | Encounter Summary ---
Author Organization [facility] Address [facility] [place] [address] Care Team Providers Care Director Drug Name Role Phone Vanessa Christian MAURI Primary Care Provider [phone] Reason for Visit * Consultation (Routine) - Closed Specialty Diagnoses / Procedures Referred By Contac t Referred To Contact Cardiac Surgery Diagnoses Nonrheumatic aortic valve stenosis significant - TAVR ( defers to Card Surg d/t age) Neftali Ernandez MD [facility] [place] [address] Zak Farmer MD [facility] [place] [address] Referral ID Status Reason Start Date Expiration Date V isits Requested Visits Authorized [id number] Closed Consult, Test & Treat 10/21/2023 10/20/2024 1 1 Encounter Details Date Type Department Care Team (Late st Contact Info) Description 01/09/2024 1:40 PM EDT Office Visit [place] [address] Zak Farmer MD [facility] [place] [address] Nonrheumatic aortic valve stenosis Social [...] office. Best personal regards, Zak Farmer MD [phone] In aggregate 55 minutes were spent evaluating [...] questions please contact the health home care scheduler that requested your imaging first. ? Narrative [...] have questions please contactthe health home care scheduler that requested your imaging first. Zak Farmer [...] CHEMISTRY ORDERABLE S [facility] [place] [place] [address] * Hepatic Function Panel (01/09/2024 2:58 PM [...] S Performing Organization Address [facility] Co de Phone Number [facility] [place] [address] * Prothrombin Time (01/09/2024 2:58 PM EDT) [...] ES Performing Organization Address [facility] Co de Phone Number [facility] [place] [address] * Type and Screen Future Surgery, [facility] SAME DAY PROGRAM ONLY) (01/09/2024 2:58 PM EDT) ABORH Type O NEGATIVE [facility] Patient BB History Not Found [facility] Expires at 3146 on: 02-20-2024 [facility] Ab Screen Interp Negative [facility] Blood 01/09/2024 2:58 PM EDT 01/09/2024 2:58 PM EDT Narrative Resulting Agency Comment Spec In Lab Zak Farmer MD BLOOD [facility] ORDE ASH Performing Organization Address City/State/[facility] Co de Phone Number [facility] [place] [address] documented in this encounter Visit Diagnoses Diagnosis Nonrheumatic aortic valve stenosis Aortic valve disorders Nonrheumatic aortic valve stenosis Aortic valve disorders documented in this encounter Care Teams Director Drug Relationship Specialty Start Date End Date Vanessa Christian, MOBILE LOUNGE DRIVER PCP - General Family Medicine 10/21/23 05/26/24 documented as of this encounter
--- OUTSIDE RECORDS SUMMARY | 2024-09-29 09:59 | XMS_ITS | Encounter Summary ---
Author Organization [facility] [place] [address] Care Team Providers Care Garnett Machine Operator Name Role Phone Vanessa Christian Lane DOTSON Primary Care Provider [phone] Reason for Referral * Diagnostic Test (Routine) - Closed Specialty Diagnoses / Procedures Referred By Contac t Referred To Contact Radiology Diagnoses Nonrheumatic aortic valve stenosis Procedures CT Chest wo Contrast (Generic) Louisa Cho PA [facility] DR CARDIOTH[place] [address] [facility] [place] [address] Referral ID Status Reason Start Date Expiration Date V isits Requested Visits Authorized [id number] Closed Specialty Service Requested 01/10/2024 07/11/2025 1 1 Reason for Visit * Diagnostic Test (Routine) - Closed Specialty Diagnoses / Procedures Referred By Contac t Referred To Contact Radiology Diagnoses Nonrheumatic aortic valve stenosis Procedures CT Chest wo Contrast (Generic) Louisa Cho PA [facility] [place] [address] [facility] [place] [address] Referral ID Status Reason Start Date Expiration Date V isits Requested Visits Authorized [id number] Closed Specialty Service Requested 01/10/2024 07/11/2025 1 1 Encounter Details Date Type Department Care Team (Latest Contact Info) Description 02/03/2024 7:36 AM EDT - 02/03/2024 8:05 AM EDT Hospital Encounter CT Scan at [facility] [place] [address] Zak Farmer MD [facility] C[place] [address] Nonrheumatic aortic valve stenosis Discharge Disposition: Home [...] wo Contrast (Generic) (02/03/2024 7:44 AM EDT) Charlie [employer] Signature WORKSTATION ID [id number] RAD Anatomical Region Laterality Modality Chest Computed [...] have questions please contact the health manager care that requested your imaging first. ? Electronically signed by: Rogerio Wright MD, [facility] ([phone]), at 02/03/2024 10:00 AM Narrative 02/03/2024 10:00 [...] nodule along the minor fissure (series 302 [id number]) and a 8 mm right lower lobe [...] who have questions please contactthe health manager care that requested your imaging first. Electronically signed by: Rogerio Wright MD, [facility]([phone]), at 02/03/2024 10:00 AM Zak Farmer MD IMG CT ORDERABLES documented in this encounter Visit Diagnoses Diagnosis Nonrheumatic aortic valve stenosis Aortic valve disorders documented in this encounter Care Teams Garnett Machine Operator Relationship Specialty Start Date End Date Vanessa Christian APRN PCP - General Family Medicine 10/21/23 05/26/24 documented as of this encounter
--- OUTSIDE RECORDS SUMMARY | 2024-09-29 09:59 | XMS_ITS | Encounter Summary ---
Author Organization Formerly [facility] Address [facility] [place] [address] Care Team Providers Care Vascular Surgery Physician Name Role Phone Vanessa Christian GRAIN OILSEED OR PASTURE FARM WORKER Primary Care Provider [phone] Reason for Referral * Diagnostic Test (Routine) - Closed Specialty Diagnoses / Procedures Referred By Contac t Referred To Contact Radiology Diagnoses Nonrheumatic aortic valve stenosis Procedures CT Chest wo Contrast (Generic) Louisa Reid PA [facility] [place] [address] [facility] [place] [address] Referral ID Status Reason Start Date Expiration Date V isits Requested Visits Authorized [id number] Closed Specialty Service Requested 01/10/2024 07/11/2025 1 1 Encounter Details Date Type Department Care Team (Late st Contact Info) Description 01/09/2024 Orders [place] [address] Zak Farmer MD [facility] [place] [address] Nonrheumatic aortic valve stenosis Social History Tobacco [...] wo Contrast (Generic) (02/03/2024 7:44 AM EDT) [employer] WORKSTATION ID [id number] RAD Anatomical Region Laterality Modality Chest Computed [...] questions please contact the health medical care evaluation specialist that requested your imaging first. ? Electronically signed by: Rogerio Wright MD, [facility] ([phone]), at 02/03/2024 10:00 AM Narrative 02/03/2024 10:00 [...] nodule along the minor fissure (series 302 [id number]) and a 8 mm right lower lobe [...] have questions please contactthe health medical care evaluation specialist that requested your imaging first. Zak Farmer MD IMG CT ORDERABLES documented in this encounter Visit Diagnoses Diagnosis Nonrheumatic aortic valve stenosis Aortic valve disorders Nonrheumatic aortic valve stenosis Aortic valve disorders documented in this encounter Care Teams Vascular Surgery Physician Relationship Specialty Start Date End Date Vanessa Christian APRN PCP - General Family Medicine 10/21/23 05/26/24 documented as of this encounter
--- OUTSIDE RECORDS SUMMARY | 2024-09-29 09:59 | XMS_ITS | Encounter Summary ---
[facility] [place] [address] Care Team Providers Care Machine Packaging Technician Name Role Phone Victor M Lafleur MD Primary Care Provider [phone] Encounter Details Date Type Department Care Team (Late st Contact Info) Description 09/26/2023 Abstract Cardiology at [address] [address] Karen Billy, RN Nonrheumatic aortic [...] documented in this encounter Care Teams Machine Packaging Technician Relationship Specialty Start Date End Date Victor M Lafleur MD PCP - General 10/02/13 10/20/23 documented as of this encounter
--- OUTSIDE RECORDS SUMMARY | 2024-09-29 09:59 | XMS_ITS | Encounter Summary ---
Author Organization [facility] [place] [address] Care Team Providers Care Outpatient Program Coordinator Name Role Phone Vanessa Christian APRN Primary Care Provider [phone] Encounter Details Date Type Department Care Team (Late st Contact Info) Description 10/21/2023 Abstract Cardiology at [address] [place] [phone] Adam Mayes RN Social History Tobacco Use [...] on filedocumented in this encounter Care Teams Outpatient Program Coordinator Relationship Specialty Start Date End Date Vanessa Christian APRN PCP - General Family Medicine 10/21/23 05/26/24 documented as of this encounter
--- OUTSIDE RECORDS SUMMARY | 2024-09-29 09:59 | XMS_ITS | Encounter Summary ---
Author Organization [facility] [place] [address] Care Team Providers Care Autism Teacher Name Role Phone Vanessa Christian APRN Primary Care Provider [phone] Encounter Details Date Type Department Care Team (Late st Contact Info) Description 12/26/2023 Notes Only Cardiology at [address] [place] [address] Neftali Ernandez MD [facility] [place] [address] Social History Tobacco Use Types Packs/Day Years [...] EDT Echocardiogram images reviewed from [facility]. Indeed, the aortic valve appears severely stenotic. Cannotrule out bicuspid valve documented in this encounter Plan of Treatment Not on file documented as of this encounter Visit Diagnoses Not on filedocumented in this encounter Care Teams Autism Teacher Relationship Specialty Start Date End Date Vanessa Christian APRN PCP - General Family Medicine 10/21/23 05/26/24 documented as of this encounter
--- OUTSIDE RECORDS SUMMARY | 2024-09-29 09:59 | XMS_ITS | Encounter Summary ---
Author Organization [facility] [place] [address] Care Team Providers Care Ticket Speculator Name Role Phone Vanessa Christian APRN Primary Care Provider [phone] Encounter Details Date Type Department Care Team (Late st Contact Info) Description 01/10/2024 [place] [phone] Lawson Napoles PA [facility] [place] [address] Screening for cardiovascular condition; Aortic valve stenosis, [...] unspecified documented in this encounter Care Teams Ticket Speculator Relationship Specialty Start Date End Date Vanessa Christian APRN PCP - General Family Medicine 10/21/23 05/26/24 documented as of this encounter
--- OUTSIDE RECORDS SUMMARY | 2024-09-29 09:59 | XMS_ITS | Encounter Summary ---
Author Organization Pending Sale To [facility] Address [facility] [place] [address] Care Team Providers Care Insurance Healthcare Representative Name Role Phone Vanessa Christian MAURI Primary Care Provider [phone] Encounter Details Date Type Department Care Team (Latest Contact Info) Description 01/09/2024 3:02 PM EDT - 01/09/2024 11:59 PM EDT Hospital Encounter XRay at [address] [place] [address] Zak Farmer MD [facility] [place] [address] Nonrheumatic aortic valve stenosis Discharge Disposition: Home [...] have questions please contact the health healthcare management that requested your imaging first. ? Narrative [...] who have questions please contactthe health healthcare management that requested your imaging first. Zak Farmer MD IMG DX ORDERABLES documented in this encounter Visit Diagnoses Diagnosis Nonrheumatic aortic valve stenosis Aortic valve disorders documented in this encounter Care Teams Insurance Healthcare Representative Relationship Specialty Start Date End Date Vanessa Christian APRN PCP - General Family Medicine 10/21/23 05/26/24 documented as of this encounter
--- OUTSIDE RECORDS SUMMARY | 2024-09-29 09:59 | XMS_ITS | Encounter Summary ---
Author Organization [facility] [place] [address] Care Team Providers Care Clinical Cytogeneticist Scientist Name Role Phone Vanessa Christian Lane DOTSON Primary Care Provider [phone] Encounter Details Date Type Department Care Team (Late st Contact Info) Description 01/09/2024 2:30 PM EDT Clinical Support Same Day at [facility] [place] [phone] Social History Tobacco Use Types Packs/Day Years [...] you tube link for a video about [facility] cardiac surgery. Instructed to bring the booklet [...] type and screen performed while in the [facility]. Sent to Radiology for chest x-ray. Special medication instructions: None Procedure date: not booked. Darian documented in this encounter Plan of Treatment Not on file documented as of this encounter Visit Diagnoses Not on filedocumented in this encounter Care Teams Clinical Cytogeneticist Scientist Relationship Specialty Start Date End Date Vanessa Christian APRN PCP - General Family Medicine 10/21/23 05/26/24 documented as of this encounter
--- OUTSIDE RECORDS SUMMARY | 2024-09-29 09:59 | XMS_ITS | Encounter Summary ---
Author Organization [facility] [place] [address] Care Team Providers Care Sales Project Coordinator Name Role Phone Vanessa Christian MAURI Primary Care Provider [phone] Reason for Visit * Auth/Cert (Routine) Specialty [...] Rima Dickinson MD [facility] [place] [address] [facility] Referral ID Status Reason Start Date Expiration Date Visits Re quested Visits Authorized [id number] 1 1 Encounter Details Date Type Department Care Team (Latest Contact Info) Description 02/03/2024 8:06 AM EDT - 02/03/2024 2:54 PM EDT Hospital Encounter [place] [address] Rima Dickinson MD [facility] [place] [address] Screening for cardiovascular condition; Aortic valve stenosis, [...] lbs Follow-up Visits Follow up with your heavy equipment sales associate in 2-4 weeks Access Site 'Black and Blue' and tenderness is expected during the first week Call if you noted a mass (lump) greater than the size of a ellis Call Office with any Questions and if you have any of the following Clarence Lane M.D Interventional Brush Hand Vp Site #: [phone] * Attachments The following attachments cannot be [...] AM EDT [facility] Interventional Cardiology Adult Pre-Procedure H&P Update: Cardiac Catheterization Karlos Anthony [id number] 1960 Chief Complaint: Aortic stenosis HPI: Mr. [...] is inthe chart Clarence Lane MD Interventional Brush Hand 02/03/24 11:48 AM documented in this encounter Miscellaneous Notes * Brief Op Note - Clarence Lane MD - 02/03/2024 12:51 PM EDT Preliminary Cardiac Catheterization Procedure Note: Patient Name: Karlos Anthony : [id number] MR#: [id number] Case Date: 02/03/2024 Vp Site: Surgeon(s) and Role: * Saira Lua MD [...] ? Procedure Date: 02/03/2024 ? A #: [id number] ? Primary Physician: Mogadam, Emad ? Case #: [id number] ? File Name: [id number] ? Catheterization Order Number: [id number] ? [facility] ?Telephone [facility] ? Final Report [place], [place] ? Patient Name: ? Karlos Anthony ? ID#: ?[id number] ? : ?1960 ? Procedure Date: ? February 03, 2024 ? Case #: ? [id number] ? Room: ? 5 ? Case Physician: ? Cristald Florian Lua. ? Start: ?12:29 ?Fellow: ? Clarence N Florian Lane. ? Admission: ??02/03/2024 ? Referring Physician: ??Zak Farmer M.D. ? Procedures: ?* Coronary Angiography ? History ?aKrlos Anthony is a 63 year old man. [...] Karlos Anthony Procedure Date: 02/03/2024 A #: [id number] Primary Physician: Saira Lua Case #: [id number] File Name: [id number] Catheterization Order Number: [id number] [facility] FinalReport [place], [place] Patient Name: Karlos Anthony ID#:[id number] :1960 Procedure Date: February 03, 2024 Case [...] designated as ASA Class III. The [facility] clinical frailty scale is 3: Managing [...] (Bezet) 372 ms MUSE SYSTEM Calculated P [place] 59 degrees MUSE SYSTEM Calculated R [place] 34 degrees MUSE SYSTEM Calculated T [place] 63 degrees MUSE SYSTEM INTERPRETATION Sinus bradycardia [...] documented in this encounter Care Teams Sales Project Coordinator Relationship Specialty Start Date End Date Vanessa Christian, MAURI PCP - General Family Medicine 10/21/23 05/26/24 documented as of this encounter
--- OUTSIDE RECORDS SUMMARY | 2024-09-29 09:59 | XMS_ITS | Encounter Summary ---
Author Organization [facility] [place] [address] Care Team Providers Care Brand Advocate Name Role Phone Vanessa Christian Lane DOTSON Primary Care Provider [phone] Encounter Details Date Type Department Care Team (Latest Contact Info) Description 01/09/2024 3:00 PM EDT Laboratory [place] [phone] Nonrheumatic aortic valve stenosis Social History Tobacco Use Types Packs/Day Years Used Date Smoking Tobacco: Former Cigarettes Smokeless Tobacco: Never Comments:Quit 15 + years ago Alcohol Use Standard Drinks/Week Comments Yes 0 (1 standard drink = 0.6 oz pur e alcohol) rare PENDING SALE TO [facility] Inpatient Questions Answer Date Recorded [...] Emergency Department [facility] Recheck Order Order Placed [facility] Type Recheck Completed [facility] Blood 01/09/2024 2:58 PM EDT 01/09/2024 3:08 PM EDT Narrative Resulting Agency Comment Spec In Lab Zak Farmer MD BLOOD BANK LAB ORDE ASH [facility] [place] [address] * Differential, Automated (01/09/2024 2:58 PM EDT) Neutrophil % 70.5 % [facility] Neutrophil Absolute 4.34 1.70 - 6.10 x10(3)/[facility] Lymph % 18.9 % [facility] Lymphocytes Abs 1.2 0.9 - 3.2 x10(3)/[facility] Monocyte % 8.0 % [facility] Monocyte Abs 0.5 0.3 - 0.9 x10(3)/[facility] Eos % 1.6 % [facility] Eosinophils Abs 0.1 0.0 - 0.4 x10(3)/[facility] Basophil % 0.5 % [facility] Baso Absolute 0.0 0.0 - 0.1 x10(3)/[facility] Immature Gran % 0.50 % [facility] Comment: Immature granulocytes(IG's)percentage and absolute count will include metamyelocytes, myelocytes, and promyelocytes. Blood smears from CBCs yielding IG's will be scanned manually for concordance. If this scan disagrees with the automated IG or if promyelocytes are noted, a manual differential will be performed. Immature Gran Absolute 0.03 0.00 - 0.04 x10(3)/[facility] Blood 01/09/2024 2:58 PM EDT 01/09/2024 3:03 PM EDT Narrative Resulting Agency Comment Spec In Lab Zak Farmer MD HEMATOLOGY ORDERABL ES [facility] [place] [address] * Hemogram (01/09/2024 2:58 PM EDT) White Blood Cell 6.2 4.0 - 9.5 x10(3)/[facility] Red Blood Cell 5.53 4.58 - 5.54 x10(6)/[facility] Hemoglobin 16.1 13.7 - 16.5 g/dL [facility] Hematocrit 46.9 40.5 - 48.5 % [facility] Mean Cell Volume 84.8 82.9 - 93.[address] [facility] Mean Cell Hemoglobin 29.1 27.5 - 32.[address] [facility] Mean Cell Hemoglobin Concentration 34.3 32.0 - 35.7 g/dL [facility] Platelet 187 145 - 357 x10(3)/[facility] RDW Standard Deviation 39.2 36.0 - 45.0 [facility] RDW coefficient of variation 12.6 11.4 - 13.8 % [facility] Mean Platelet Volume 9.5 7.6 - 12.9 [facility] LABORATORY NRBC% auto 0.0 % [facility] NRBC Absolute 0.000 0.000 - 0.000 x10(3)/[facility] Blood 01/09/2024 2:58 PM EDT 01/09/2024 3:03 PM EDT Narrative Resulting Agency Comment Spec In Lab Zak Farmer MD HEMATOLOGY ORDERABL ES [facility] [place] [address] * Basic Metabolic Panel (non-fasting) (01/09/2024 2:58 [...] ORDERABLE S Performing Organization Address [facility] Co de Phone Number [facility] [place] [address] * Hepatic Function Panel (01/09/2024 2:58 PM [...] ORDERABLE S Performing Organization Address [facility] Co de Phone Number [facility] [place] [place] [address] * Prothrombin Time (01/09/2024 2:58 PM EDT) [...] ORDERABL ES Performing Organization Address City/[facility]/ZIP Co de Phone Number [facility] [place] [address] * Type and Screen Future Surgery, CANCER [...] Farmer MD BLOOD BANK LAB ORDE RABLES [facility] [place] [address] documented in this encounter Visit Diagnoses Diagnosis Nonrheumatic aortic valve stenosis Aortic valve disorders documented in this encounter Care Teams Brand Advocate Relationship Specialty Start Date End Date Vanessa Christian APRN PCP - General Family Medicine 1/15/24 8/20/24 documented as of this encounter
--- OUTSIDE RECORDS SUMMARY | 2024-09-29 09:59 | XMS_ITS | Encounter Summary ---
Author Organization [facility] Address [facility] Ivana linareseileen [place] [id number] Care Team Providers Care Craft Artist Name Role Phone Vanessa Christian MAURI Primary Care Provider [phone] Reason for Referral * Consultation (Routine) - Closed Specialty Diagnoses / Procedures Referred By Contac t Referred To Contact Cardiac Surgery Diagnoses Nonrheumatic aortic valve stenosis significant - TAVR ( defers to Card Surg d/t age) Errol Loya MD [facility] [place] [address] Zak Farmer MD [facility] [place] [address] Referral ID Status Reason Start Date Expiration Date V isits Requested Visits Authorized [id number] Closed Consult, Test & Treat 10/21/2023 10/20/2024 1 1 Reason for Visit * Reason Comments Chest Pain Shortness of Breath Aortic Stenosis Encounter Details Date Type Department Care Team (Late st Contact Info) Description 10/21/2023 1:20 PM EST Office Visit Cardiology at [address] [address] Errol Loya MD [facility] [place] [address] Nonrheumatic aortic valve stenosis Social History Tobacco [...] in this encounter Progress Notes * Errol Lyoa MD - 10/21/2023 1:20 PM EST Images from the original note were not included. CARDIOLOGY NEW OUTPATIENT PRIMARY CARE PROVIDER: Vanessa Christian APRN PROBLEM LIST: Patient Active Problem List Diagnosis Aortic stenosis 12/2022 TTE ([facility]): VITA 0.8-0.9 cm2 (MG 28 mmHg, DOI 3.6 m/s, SVI 35 cc/m2). Trace regurgitation. Normal bi-v s/f, no other valve findings Gastroesophageal reflux Nevus of face Right scientologist Hypertension HLD (hyperlipidemia) MEDICATIONS: Current Outpatient Medications [...] the meantime will refer to T at [facility] for further evaluation. Logistics and preliminary review [...] the meantime will refer to T at [facility] for further evaluation. Logistics and preliminary review [...] disorders documented in this encounter Care Teams Craft Artist Relationship Specialty Start Date End Date Vanessa Christian APRN PCP - General Family Medicine 10/21/23 05/26/24 documented as of this encounter
--- OUTSIDE RECORDS SUMMARY | 2024-09-29 09:59 | XMS_ITS | Encounter Summary ---
Author Organization [facility] [place] [address] Care Team Providers Care Private Secretary Name Role Phone Vanessa Christian APRN Primary Care Provider [phone] Encounter Details Date Type Department Care Team [...] on filedocumented in this encounter Care Teams Private Secretary Relationship Specialty Start Date End Date Vanessa Christian APRN PCP - General Family Medicine 10/21/23 05/26/24 documented as of this encounter
--- OUTSIDE RECORDS SUMMARY | 2024-09-29 09:59 | XMS_ITS | Encounter Summary ---
[place] [address] Care Team Providers Care Pipe Changer Name Role Phone Victor M Lafleur MD Primary Care Provider [phone] Reason for Visit * Reason Onset Date Comments Referral 09/20/2023 Encounter Details Date Type Department Care Team (Late st Contact Info) Description 09/20/2023 Telephone Cardiology at [address] [address] Karen Billy, cancer program consultant Social History Tobacco Use Types Packs/Day Years [...] filedocumented in this encounter Care Teams Pipe Changer Relationship Specialty Start Date End Date Victor M Lafluer MD PCP - General 10/02/13 10/20/23 documented as of this encounter
--- OUTSIDE RECORDS SUMMARY | 2024-09-29 09:59 | XMS_ITS | Encounter Summary ---
[place] [address] Care Team Providers Care Home Health Care Worker Name Role Phone Vanessa Christian MAURI Primary Care Provider [phone] Reason for Visit * Auth/Cert (Routine) Specialty [...] RHC (WRVU 5.9) Rima Dickinson MD [facility] [place] [address] [facility] Referral ID Status Reason Start Date Expiration Date Visits Re quested Visits Authorized [id number] 1 1 Encounter Details Date Type Department Care Team (Late st Contact Info) Description 02/03/2024 10:00 AM EDT - 02/03/2024 11:00 AM EDT [place] [address] Saira Lua MD CARDIAC CATHETERIZATION Social History [...] lbs Follow-up Visits Follow up with your vp celebrity services in 2-4 weeks Access Site 'Black and Blue' and tenderness is expected during the first week Call if you noted a mass (lump) greater than the size of a ellis Call Office with any Questions and if you have any of the following Clarence Lane M.D Interventional Quality Assurance Lab Technician Corporate Associate #: [phone] * Attachments The following attachments cannot be sent through Care Everywhere. * CAD (Coronary Artery Disease): General Info (Albanian) * Coronary Angiogram: Post-op (Albanian) documented in this encounter Medications at Time [...] Pre-Procedure H&P Update: Cardiac Catheterization Karlos Anthony [id number] 1960 Chief Complaint: Aortic stenosis HPI: Mr. [...] is inthe chart Clarence Lane MD Interventional Quality Assurance Lab Technician 02/03/24 11:48 AM documented in this encounter Miscellaneous Notes * Brief Op Note - Clarence Lane MD - 02/03/2024 12:51 PM EDT Preliminary Cardiac Catheterization Procedure Note: Patient Name: Karlos Anthony : [id number] MR#: [id number] Case Date: 02/03/2024 Corporate Associate: Surgeon(s) and Role: * Saira Lua MD [...] Modality Other Narrative 02/12/2024 3:47 PM EDT ?[facility] ? Cardiac Catheterization/Intervention Report ? Patient Name: Patenaude, Karlos ? Procedure Date: 02/03/2024 ? A #: [id number] ? Primary Physician: Mogadam, Emad ? Case #: [id number] ? File Name: [id number] ? Catheterization Order Number: [id number] ? [facility] ? Final Report [place], [place] ? Patient Name: ? Karlos Patenaude ? ID#: ?[id number] ? : ?1960 ? Procedure Date: ? [...] Procedure Note Saira Lua MD - 02/12/2024 [facility] Cardiac Catheterization/Intervention Report Patient Name: Karlos Anthony Procedure Date: 02/03/2024 A #: [id number] Primary Physician: Saira Lua Case #: [id number] File Name: [id number] Catheterization Order Number: [id number] [facility] FinalReport [place], [place] Patient Name: Karlos Anthony ID#:[id number] :1960 Procedure Date: February 03, 2024 Case [...] (Bezet) 372 ms MUSE SYSTEM Calculated P [place] 59 degrees MUSE SYSTEM Calculated R [place] 34 degrees MUSE SYSTEM Calculated T [place] 63 degrees MUSE SYSTEM INTERPRETATION Sinus [...] MD) documented in this encounter Care Teams Home Health Care Worker Relationship Specialty Start Date End Date Vanessa Christian APRN PCP - General Family Medicine 10/21/23 05/26/24 documented as of this encounter
--- OUTSIDE RECORDS SUMMARY | 2024-09-29 09:59 | XMS_ITS | Encounter Summary ---
Author Organization [place] [address] Care Team Providers Care Center Mgr Name Role Phone Vanessa Christian APRN Primary Care Provider [phone] Encounter Details Date Type Department Care Team [...] on filedocumented in this encounter Care Teams Center Mgr Relationship Specialty Start Date End Date Vanessa Christian APRN PCP - General Family Medicine 10/21/23 05/26/24 documented as of this encounter
--- OUTSIDE RECORDS SUMMARY | 2024-09-29 09:59 | XMS_ITS | Encounter Summary ---
Author Organization [facility] [place] [address] Care Team Providers Care Special Education Professor Name Role Phone Vanessa Christian APRN Primary Care Provider [phone] Encounter Details Date Type Department Care Team (Late st Contact Info) Description 10/21/2023 Abstract Cardiology at [address] [place] [phone] Adam Mayes RN Social History Tobacco Use [...] on filedocumented in this encounter Care Teams Special Education Professor Relationship Specialty Start Date End Date Vanessa Christian APRN PCP - General Family Medicine 10/21/23 05/26/24 documented as of this encounter
[2024-10-01 09:56] VITALS: BP 144/78; PULSE 56; O2SAT 97
--- OUTSIDE RECORDS SUMMARY | 2024-10-01 09:56 | XMS_ITS | Encounter Summary ---
Author Organization [facility] Address [address] [place] [address] Care Team Providers Care Head Machinist Name Role Phone Filidayna Vanessa Dayna MONCADA Primary Care Provider Encounter Details Date Type Department Care Team (Late st Contact Info) Description 10/24/2023 Lab Requisition [facility] Pathology & Laboratory Medicine - [address] [address] Oscar Nichole MD [address] [place] [address] [phone] Factitial dermatitis Social History Tobacco Use Types [...] LABORATORY SERVICES Final Diagnosis A. SKIN OF DRUZE, LEFT, SHAVE BIOPSY: - Seborrheic keratosis, pigmented. 10/28/2023 11:[address] [facility] Attestation By the signature below, the attending physician certifies that they have 1) personally conducted a gross and/or microscopic examination of the described specimen(s), and/or personally interpreted the results of laboratory testing of the described specimen(s), and 2) personally rendered or confirmed the above diagnosis. 10/28/2023 11:24 [facility] at [address] Microscopic Description The stratum corneum is thickened by compact and basketweave orthokeratosis with formation of horn pseudocysts. The epidermis is acanthotic with formation of broad and anastomosing trabeculae. The trabeculae are composed of basaloid keratinocytes with round uniform nuclei. The keratinocytes have a variable amount of melanin pigment. 10/28/2023 11:24 [facility] Clinical History Pigmented 2 cm patch; clinical diagnosis code: L98.1 10/28/2023 11:24 [facility] Gross Description A. Received in formalin labelled with proper patient identification (initials P, A) and left muslim is a shave biopsy of an irregular [...] A3. Nora Anderson 10/25/2023 8:47 10/28/2023 11:24 [facility] Performing Lab [facility] 10/28/2023 11:24 [facility] Scanned Images 10/28/2023 11:24 [facility] Tissue SPECIMEN FROM SKIN / Unknown 10/24/2023 14:30 EST 10/24/2023 22:04 EST us Oscar Nichole MD PATHOLOGY ORDERABLES Final Resul t [facility] [address] [place] [address] documented in this encounter Visit Diagnoses Diagnosis Factitial dermatitis Dermatitis factitia (artefacta) documented in this encounter Care Teams Head Machinist Relationship Specialty Start Date End Date Vanessa Christian NP [address] [place] [address] PCP - General Family Medicine - Primary Care 10/07/23 documented as of this encounter
--- OUTSIDE RECORDS SUMMARY | 2024-10-01 09:56 | XMS_ITS | Clinical Summary ---
Author Organization [facility] Address [facility] [place] [address] Care Team Providers Care Vegetable Loader Machine Operator Name Role Phone Vanessa Christian Lane DOTSON Primary Care Provider [phone] Allergies No known active allergies Medications Medication [...] the meantime will refer to SHT at [facility] for further evaluation. Logistics and preliminary review [...] 0.6 oz pur e alcohol) rare [facility] Utilities Answer Date Recorded In [...] series) 06/07/2024 Medical Devices Implanted Type Area Quartz Miner Device Identifier Shelf Expiration Date Model / Serial / Lot Cable,Cut,Edg ,Blnt,Ss,3tpr ([id number]) - [id number] Implanted:Qty : 1 on 02/17/2024 by Zak Farmer MD at [facility] IMPLANTS Midline: Chest [employer] - [id number] 09/02/2028 [id number] / / [id number] Valve Coronary Aortic 23mm Tissue Trnscath Biopros Inspiris ([id number]) (Autoreq) - [id number] Implanted:Qty : 1 on 02/17/2024 by Zak Farmer MD at [facility] IMPLANTS Heart [employer] - TSAI LI 09/15/2027 [id number] 23MM / [id number] / Advance Directives * Attempt Cardiopulmonary Resuscitation [...] Status decision made by: Patient Care Teams Vegetable Loader Machine Operator Relationship Specialty Start Date End Date Vanessa Christian, SIGN BOARD ERECTOR [address] [place] [address] PCP - General Family Medicine 05/27/24
--- OUTSIDE RECORDS SUMMARY | 2024-10-01 09:56 | XMS_ITS | Clinical Summary ---
Author Organization [facility] Address [address] [place] [address] Care Team Providers Care Snuff Maker Name Role Phone Filidayna Vanessa Sherman NP Primary Care Provider [phone] Social History Tobacco Use Types Packs/Day Years [...] 75+ series) 2034 Insurance [employer] Care Teams Snuff Maker Relationship Specialty Start Date End Date Vanessa Christian, ANTWAN [address] [place] [phone] PCP - General Family Medicine - Primary Care 10/07/23
--- OUTSIDE RECORDS SUMMARY | 2024-10-01 09:56 | XMS_ITS | Referral Summary ---
Author Organization [facility] Address [address] [place] [address] Care Team Providers Care Marine Fuel Dock Attendant Name Role Phone Vanessa Christian Lane MONCADA Primary Care Provider Social History Tobacco Use Types Packs/Day Years Used Date Smoking Tobacco: Never Assessed Sex and Gender Information Value Date Recorded Sex Assigned at Not on file Legal Sex Male 22:02 EST Gender Identity Not on file Sexual Orientation Not on file Plan of Treatment Not on file Insurance R Care Teams Marine Fuel Dock Attendant Relationship Specialty Start Date End Date Vanessa Christian, ANTWAN [address] [place] [phone] PCP - General Family Medicine - Primary Care 10/07/23
--- OUTSIDE RECORDS SUMMARY | 2024-10-01 09:56 | XMS_ITS | Encounter Summary ---
Author Organization [facility] Address [facility] [place] [address] Care Team Providers Care Store Team Member Name Role Phone Vanessa Christian MAURI Primary Care Provider [phone] Encounter Details Date Type Department Care Team (Latest Contact Info) Description 05/27/2024 Travel Social History Tobacco Use Types Packs/Day Years Used Date Smoking Tobacco: Former Cigarettes Smokeless Tobacco: Never Comments:Quit 15 + years ago Alcohol Use Standard Drinks/Week Comments Yes 0 (1 standard drink = 0.6 oz pur e alcohol) rare [facility] Utilities Answer Date Recorded In [...] on filedocumented in this encounter Care Teams Store Team Member Relationship Specialty Start Date End Date Vanessa Christian APRN [address] [place] [address] PCP - General Family Medicine 05/27/24 documented as of this encounter
--- OUTSIDE RECORDS SUMMARY | 2024-10-01 09:57 | XMS_ITS | Encounter Summary ---
Author Organization [facility] Address [facility] [place] [address] Care Team Providers Care Track Laminating Machine Tender Name Role Phone Gino Vanessa Lane DOTSON Primary Care Provider [phone] Encounter Details Date Type Department Care Team (Late st Contact Info) Description 02/24/2024 Orders Only Cardiac Surgery [facility] [place] [phone] Trudi Lester APRN [facility] [place] [address] Social History Tobacco Use Types Packs/Day Years Used Date Smoking Tobacco: Former Cigarettes Smokeless Tobacco: Never Comments:Quit 15 + years ago Alcohol Use Standard Drinks/Week Comments Yes 0 (1 standard drink = 0.6 oz pur e alcohol) rare [facility] Utilities Answer Date Recorded In the past 12 months has e [employer], gas, oil, or water [employer] threatened to shut off services in your [...] on filedocumented in this encounter Care Teams Track Laminating Machine Tender Relationship Specialty Start Date End Date Vanessa Christian APRN PCP - General Family Medicine 10/21/23 05/26/24 documented as of this encounter
--- OUTSIDE RECORDS SUMMARY | 2024-10-01 09:57 | XMS_ITS | Encounter Summary ---
Author Organization [facility] Address [facility] [place] [address] Care Team Providers Care Victim Advocate Name Role Phone Vanessa Christian MAURI Primary Care Provider [phone] Encounter Details Date Type Department Care Team [...] on filedocumented in this encounter Care Teams Victim Advocate Relationship Specialty Start Date End Date Vanessa Christian APRN PCP - General Family Medicine 10/21/23 05/26/24 documented as of this encounter
--- OUTSIDE RECORDS SUMMARY | 2024-10-01 09:57 | XMS_ITS | Encounter Summary ---
Author Organization [facility] Address [facility] [place] [address] Care Team Providers Care Registered Dental Hygienist Name Role Phone Vanessa Christian Lane DOTSON Primary Care Provider [phone] Reason for Visit * Reason Comments Coronary Artery Disease Aortic Stenosis Encounter Details Date Type Department Care Team (Latest Contact Info) Description 05/27/2024 11:00 AM EDT Office Visit Cardiology at [address] [phone] Neftali Ernandez MD [facility] [place] [address] ASCVD (arteriosclerotic cardiovascular disease); Nonrheumatic aortic valve stenosis Social History Tobacco Use Types Packs/Day Years Used Date Smoking Tobacco: Former Cigarettes Smokeless Tobacco: Never Comments:Quit 15 + years ago Alcohol Use Standard Drinks/Week Comments Yes 0 (1 standard drink = 0.6 oz pur e alcohol) rare [facility] Utilities Answer Date Recorded In the past 12 months has e [employer], gas, oil, or water [employer] threatened to shut off services in [...] disorders documented in this encounter Care Teams Registered Dental Hygienist Relationship Specialty Start Date End Date Vanessa Christian, MAURI [address] [place] [address] PCP - General Family Medicine 05/27/24 documented as of this encounter
--- OUTSIDE RECORDS SUMMARY | 2024-10-01 09:57 | XMS_ITS | Encounter Summary ---
Author Organization [facility] Address [facility] [place] [address] Care Team Providers Care Regional Planner Name Role Phone Vanessa Christian MAURI Primary Care Provider [phone] Encounter Details Date Type Department Care Team (Latest Contact Info) Description 03/12/2024 1:30 PM EDT - 03/12/2024 11:59 PM EDT Hospital Encounter XRay at [address] [place] [address] Coronary artery disease, unspecified vessel or lesion type, unspecified whether angina present, unspecified whether [place] or transplanted heart Discharge Disposition: Home Social History Tobacco Use Types Packs/Day Years Used Date Smoking Tobacco: Former Cigarettes Smokeless Tobacco: Never Comments:Quit 15 + years ago Alcohol Use Standard Drinks/Week Comments Yes 0 (1 standard drink = 0.6 oz pur e alcohol) rare [facility] Utilities Answer Date Recorded In the past 12 months has e [employer], gas, oil, or water [employer] threatened to shut off services in your [...] type, unspecified whether angina present, unspecified whether [place] or transplanted heart documented in this encounter Results * XR Chest PA & Lateral (Generic) (03/12/2024 1:42 PM EDT) WORKSTATION ID [id number] RAD Anatomical Region Laterality Modality Chest N/A [...] who have questions please contact the health menagerie caretaker that requested your imaging first. ? Electronically signed by: Augie Sanchez MD, [facility] ([phone]), at 03/13/2024 8:28 AM Narrative 03/13/2024 8:28 AM EDT EXAMINATION: XR CHEST PA AND LATERAL (GENERIC) CLINICAL HISTORY: s/p cabg eval effusions I25.10, Atherosclerotic heart disease of [place] coronary artery without angina pectoris TECHNIQUE: PA [...] eval effusions I25.10, Atherosclerotic heart disease of [place] coronary artery withoutangina pectoris TECHNIQUE: PA and [...] patients who have questions please contactthe health menagerie caretaker that requested your imaging first. Electronically signed by: Augie Sanchez MD, [facility]([phone]), at 03/13/2024 8:28 AM Zak Farmer MD IMG DX ORDERABLES documented in this encounter Visit Diagnoses Diagnosis Coronary artery disease, unspecified vessel or lesion type, unspecified whether angina present, unspecified whether [place] or transplanted heart documented in this encounter Care Teams Regional Planner Relationship Specialty Start Date End Date Vanessa Christian APRN PCP - General Family Medicine 10/21/23 05/26/24 documented as of this encounter
--- OUTSIDE RECORDS SUMMARY | 2024-10-01 09:57 | XMS_ITS | Encounter Summary ---
Author Organization [facility] Address [facility] [place] [address] Care Team Providers Care Gold Reclaimer Name Role Phone Vanessa Christian MAURI Primary Care Provider Encounter Details Date Type Department Care Team (Latest Contact Info) Description 05/20/2024 Travel Social History Tobacco Use Types Packs/Day Years Used Date Smoking Tobacco: Former Cigarettes Smokeless Tobacco: Never Comments:Quit 15 + years ago Alcohol Use Standard Drinks/Week Comments Yes 0 (1 standard drink = 0.6 oz pur e alcohol) rare [facility] Utilities Answer Date Recorded In the [...] on filedocumented in this encounter Care Teams Gold Reclaimer Relationship Specialty Start Date End Date Vanessa Christian APRN PCP - General Family Medicine 10/21/23 05/26/24 documented as of this encounter
--- OUTSIDE RECORDS SUMMARY | 2024-10-01 09:57 | XMS_ITS | Encounter Summary ---
Author Organization [facility] Address [facility] [place] [address] Care Team Providers Care Travel Nurse Name Role Phone Vanessa Christian QUALITY ASSURANCE ANALYST Primary Care Provider [phone] Encounter Details Date Type Department Care Team (Late st Contact Info) Description 03/12/2024 2:40 PM EDT Office Visit [place] [phone] Zak Farmer MD [facility] [place] [address] Coronary artery disease, unspecified vessel or lesion type, unspecified whether angina present, unspecified whether [place] or transplanted heart Social History Tobacco Use Types Packs/Day Years Used Date Smoking Tobacco: Former Cigarettes Smokeless Tobacco: Never Comments:Quit 15 + years ago Alcohol Use Standard Drinks/Week Comments Yes 0 (1 standard drink = 0.6 oz pur e alcohol) rare [facility] Utilities Answer Date Recorded In the past 12 months has e [employer], gas, oil, or water [employer] threatened to shut off services in your [...] 2:40 PM EDT To: MD Vanessa Coles, QUALITY ASSURANCE ANALYST Re; Karlos Santa ( 1960) We [...] office. Best personal regards, Zak Farmer MD [phone] documented in this encounter Plan of Treatment Not on file documented as of this encounter Procedures Procedure Name Priority Date/Time Associated Diagnosis Comments EKG 12-LEAD Routine 03/12/2024 2:35 PM EDT Coronary artery disease, unspecified vessel or lesion type, unspecified whether angina present, unspecified whether [place] or transplanted heart documented in this encounter Results * EKG 12 Lead (03/12/2024 2:35 PM EDT) Ventricular rate 59 BPM MUSE SYSTEM Atrial Rate 59 BPM MUSE SYSTEM P-R Interval 190 ms MUSE SYSTEM QRS Duration 92 ms MUSE SYSTEM Q-T Interval 406 ms MUSE SYSTEM QTC Calculated (Bezet) 401 ms MUSE SYSTEM Calculated P [place]ets[place] -12 degrees MUSE SYSTEM Calculated R [place] 24 degrees MUSE SYSTEM Calculated T [place] 74 degrees MUSE SYSTEM INTERPRETATION Sinus bradycardia T wave abnormality, consider anterior ischemia Abnormal ECG When compared with ECG of 17-FEB-2024 13:24, [place] interval has decreased T wave inversion now evident in Anterior leads Confirmed by Paul Guzman ([id number]) on 03/15/2024 8:36:23 AM MUSE SYSTEM 03/12/2024 2:35 PM EDT 03/15/2024 8:36 AM EDT Zak Farmer MD ECG ORDERABLES Transmit SYSTEM documented in this encounter Visit Diagnoses Diagnosis Coronary artery disease, unspecified vessel or lesion type, unspecified whether angina present, unspecified whether [place] or transplanted heart documented in this encounter Care Teams Travel Nurse Relationship Specialty Start Date End Date Vanessa Christian, MAURI PCP - General Family Medicine 10/21/23 05/26/24 documented as of this encounter
--- OUTSIDE RECORDS SUMMARY | 2024-10-01 09:58 | XMS_ITS | Encounter Summary ---
Author Organization [facility] Address [facility] [place] [address] Care Team Providers Care Floor Covering Contractor Name Role Phone Vanessa Christian MAURI Primary Care Provider [phone] Encounter Details Date Type Department Care Team (Latest Contact Info) Description 01/09/2024 3:02 PM EDT - 01/09/2024 11:59 PM EDT Hospital Encounter XRay at [address] [place] [address] Zak Farmer MD [facility] CARDIOTHORACIC [place] [address] Nonrheumatic aortic valve stenosis Discharge Disposition: Home Social History Tobacco Use Types Packs/Day Years Used Date Smoking Tobacco: Former Cigarettes Smokeless Tobacco: Never Comments:Quit 15 + years ago Alcohol Use Standard Drinks/Week Comments Yes 0 (1 standard drink = 0.6 oz pur e alcohol) rare [facility] Inpatient Questions Answer Date Recorded [...] who have questions please contact the health floor care specialist that requested your imaging first. [...] patients who have questions please contactthe health floor care specialist that requested your imaging first. Zak Farmer MD IMG DX ORDERABLES documented in this encounter Visit Diagnoses Diagnosis Nonrheumatic aortic valve stenosis Aortic valve disorders documented in this encounter Care Teams Floor Covering Contractor Relationship Specialty Start Date End Date Vanessa Christian APRN PCP - General Family Medicine 10/21/23 05/26/24 documented as of this encounter
--- OUTSIDE RECORDS SUMMARY | 2024-10-01 09:58 | XMS_ITS | Encounter Summary ---
Author Organization [facility] [place] [address] Care Team Providers Care Worship Pastor Name Role Phone Vanessa Christian MAURI Primary Care Provider [phone] Reason for Visit * Auth/Cert (Routine) Specialty [...] ARTERIAL GRAFT (WRVU 7.93) Zak Farmer MD [facility] [place] [address] [facility] Referral ID Status Reason Start Date Expiration Date Visits Re quested Visits Authorized [id number] 1 1 Encounter Details Date Type Department Care Team (Late st Contact Info) Description 02/17/2024 7:35 AM EDT Anesthesia Event Main Operating Room [facility] [place] [phone] Roman York MD [facility] [place] [address] Anesthesia Record Procedure Summary Procedure Name Responsible [...] by Sadiq Woo RN PIV 02/17/24; 0715; [id number] catheter system; 18 gauge; cephalic vein (lateral [...] th e electric, gas, oil, or water [employer] threatened to shut off services in your [...] Procedure Summary Date: 02/17/24 Room / Location: [facility] OR [address] [place] [address] MAIN OR Anesthesia Start: 734 Anesthesia Stop: [...] shown include unfiled device data. [facility]: [facility] Level of Consciousness: Sedated (Pharmacologic/Intentional) Pain [...] 08/14/2023 ??? Nevus of face 09/26/2023 Right zoroastrianism No past surgical history on file. Social [...] mg documented in this encounter Care Teams Worship Pastor Relationship Specialty Start Date End Date Vanessa Christian APRN PCP - General Family Medicine 10/21/23 05/26/24 documented as of this encounter
--- OUTSIDE RECORDS SUMMARY | 2024-10-01 09:58 | XMS_ITS | Encounter Summary ---
Author Organization [facility] Address [facility] [place] [address] Care Team Providers Care Personnel Scheduler Name Role Phone Vanessa Christian MAURI Primary Care Provider [phone] Encounter Details Date Type Department Care Team (Late st Contact Info) Description 02/14/2024 [place] [phone] Zak Farmer MD [facility] DR [place] [address] Coronary artery disease, unspecified vessel or lesion type, unspecified whether angina present, unspecified whether [place] or transplanted heart (Primary Dx) Social History [...] (Bezet) 401 ms MUSE SYSTEM Calculated P [place] -12 degrees MUSE SYSTEM Calculated R [place] 24 degrees MUSE SYSTEM Calculated T [place] 74 degrees MUSE SYSTEM INTERPRETATION Sinus bradycardia T wave abnormality, consider anterior ischemia Abnormal ECG When compared with ECG of 17-FEB-2024 13:24, [place] interval has decreased T wave inversion now evident in Anterior leads Confirmed by Paul Guzman ([id number]) on 03/15/2024 8:36:23 AM MUSE SYSTEM 03/12/2024 2:35 PM EDT 03/15/2024 8:36 AM EDT Zak Farmer MD ECG ORDERABLES MUSE SYSTEM * XR Chest PA & Lateral (Generic) (03/12/2024 1:42 PM EDT) Pathologist [facility] WORKSTATION ID [id number] [facility] Anatomical Region Laterality Modality Chest [...] questions please contact the health resident care provider that requested your imaging first. ? Electronically signed by: Augie Sanchez MD, [facility] ([phone]), at 03/13/2024 8:28 AM Narrative 03/13/2024 8:28 AM EDT EXAMINATION: XR CHEST PA AND LATERAL (GENERIC) CLINICAL HISTORY: s/p cabg eval effusions I25.10, Atherosclerotic heart disease of [place] coronary artery without angina pectoris TECHNIQUE: PA [...] eval effusions I25.10, Atherosclerotic heart disease of [place] coronary artery withoutangina pectoris TECHNIQUE: PA and [...] have questions please contactthe health resident care provider that requested your imaging first. Electronically signed by: Augie Sanchez MD, [facility]([phone]), at 03/13/2024 8:28 AM Zak Farmer MD IMG DX ORDERABLES documented in this encounter Visit Diagnoses Diagnosis Coronary artery disease, unspecified vessel or lesion type, unspecified whether angina present, unspecified whether [place] or transplanted heart- Primary Coronary artery disease, unspecified vessel or lesion type, unspecified whether angina present, unspecified whether [place] or transplanted heart documented in this encounter Care Teams Personnel Scheduler Relationship Specialty Start Date End Date Vanessa Christian APRN PCP - General Family Medicine 10/21/23 05/26/24 documented as of this encounter
--- OUTSIDE RECORDS SUMMARY | 2024-10-01 09:58 | XMS_ITS | Encounter Summary ---
Author Organization [facility] [place] [address] Care Team Providers Care Home Care Liaison Name Role Phone Vanessa Christian AUDOGRAPH OPERATOR Primary Care Provider [phone] Reason for Referral * Diagnostic Test (Routine) - Closed Specialty Diagnoses / Procedures Referred By Contac t Referred To Contact Radiology Diagnoses Nonrheumatic aortic valve stenosis Procedures CT Chest wo Contrast (Generic) Louisa Reid PA [facility] [place] [address] [facility] [place] [address] Referral ID Status Reason Start Date Expiration Date V isits Requested Visits Authorized [id number] Closed Specialty Service Requested 01/10/2024 07/11/2025 1 1 Encounter Details Date Type Department Care Team (Late st Contact Info) Description 01/09/2024 Orders [place] [address] Zak Farmer MD [facility] [place] [address] Nonrheumatic aortic valve stenosis Social History Tobacco [...] wo Contrast (Generic) (02/03/2024 7:44 AM EDT) [facility] WORKSTATION ID [id number] RAD Anatomical Region Laterality Modality Chest Computed [...] questions please contact the health home care provider that requested your imaging first. [...] nodule along the minor fissure (series [id number]) and a 8 mm right lower lobe [...] have questions please contactthe health home care provider that requested your imaging first. Zak Farmer MD IMG CT ORDERABLES documented in this encounter Visit Diagnoses Diagnosis Nonrheumatic aortic valve stenosis Aortic valve disorders Nonrheumatic aortic valve stenosis Aortic valve disorders documented in this encounter Care Teams Home Care Liaison Relationship Specialty Start Date End Date Vanessa Christian APRN PCP - General Family Medicine 10/21/23 05/26/24 documented as of this encounter
--- OUTSIDE RECORDS SUMMARY | 2024-10-01 09:58 | XMS_ITS | Encounter Summary ---
[place] [address] Care Team Providers Care [employer] Name Role Phone Aparna Jordan MAURI Primary Care Provider [phone] Reason for Referral * Diagnostic Test (Routine) - New Request Specialty Diagnoses / Procedures Referred By Contac t Referred To Contact Cardiology Diagnoses S/P AVR Procedures Echocardiogram Transthoracic Neftali Menon PA [facility] [place] [address] [facility] [place] [address] Referral ID Status Reason Start Date Expiration Date Visits Requested Visits Authorized [id number] New Request Specialty Service Requested 02/24/2024 02/23/2025 1 1 * Consultation (Routine) - Closed Specialty Diagnoses / Procedures Referred By Contac t Referred To Contact Cardiology Diagnoses S/P AVR Hayder Graham MD [facility] [place] [address] Cardiac Rehab, [facility] [address] [place] [address] [place] [address] Referral ID Status Reason Start Date Expiration Date V isits Requested Visits Authorized [id number] Closed Consult, Test & Treat 02/24/2024 08/22/2024 36 36 * Home Health Care (Routine) - Closed Specialty Diagnoses / Procedures Referred By Sixto mendoza Referred To Contact Diagnoses S/P AVR Hayder Graham MD [facility] [place] [address] Referral ID Status Reason Start Date Expiration Date V isits Requested Visits Authorized [id number] Closed Consult, Test & Treat 02/24/2024 08/22/2024 [...] MD [facility] [place] [address] [facility] Referral ID Status Reason Start Date Expiration Date Visits Re quested Visits Authorized [id number] 1 1 Encounter Details Date Type Department Care Team (Latest Contact Info) Description 02/17/2024 5:43 AM EDT - 02/24/2024 11:23 AM EDT Hospital Encounter Heart and Vascular Unit Level 4 [place] [address] Hayder Graham MD [facility] [place] [address] S/P AVR (Primary Dx); Aortic valve stenosis, [...] Patient Age: 63 y.o. Birthdate: 1960 Language: Dutch Race: White Ethnicity: Not nor Admit Date: 02/17/2024 Discharge Date: 02/24/24 Attending Physician: Hayder Graham MD Follow-up Recommendations for Providers: Please continue routine management of cardiovascular risk factors including blood pressure, lipids,glucose, etc. Please note any changes to medications. Patient to follow up with PCP, Aparna Jordan APRN, in 1-2 weeks. Patient to follow up with Exhibitor Sales, Neftali Ernandez MD , in 2 weeks. Patient to follow up with Cardiac Surgeon, Dr. Hayder Graham, with a chest x-ray, EKG, and Echo. Inpatient Provider Contact Information: [facility] Section of Cardiac Surgery [facility] [address] FAX [phone] Discharge Diagnoses (Hospital Problems) Primary Diagnoses: /CAD [...] 33.75) performed by Hayder Graham MD at [facility] MAIN OR PRO CABG, ARTERY-VEIN, TWO N/A 02/17/2024 @CABG, TWO VENOUS GRAFTS & ARTERIAL GRAFT (WRVU 7.93) performed by Hayder Graham MD at [facility] MAIN OR PRO ENDOSCOPY W/VIDEO-ASST VEIN HARVEST, CABG Left 02/17/2024 ENDOSCOPIC HARVEST VEIN(S) FOR CABG (WRVU 0.31) performed by Hayder Graham MD at [facility] MAIN OR PRO REPLACEMENT PROSTHETIC AORTIC VALVE OPEN W CARDIOPULMONARY BYPASS HOMOGRF/STENT N/A 02/17/2024 @REPLACE AORTIC VALVE, OPEN, W\CPB, W\PROSTHETIC VALVE (WRVU 41.32) performed by Hayder Graham MD at [facility] MAIN OR Prior To Admission [...] insufficiency. He has glaucoma. He used to [employer] until about 15 years ago. He has undergone prior herniorrhaphy. 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 Major Procedures/Operations: 02/17/24 s/p avr/cabgx3 CABG x 3 JOSE->LAD SVG->dRCA SVG->OM1 EVH from LLE AVR with a 23 mm Inspiris Bioprosthesis Hospital Course: Karlos Garcia was admitted to [facility] on 02/17/2024 via the Same Day [...] Hayder Graham and/or the Cardiac Surgery Physician Tonger Team may be reached at . Antibiotic [...] Dr. Hayder Graham. You may use a [place] Track or treadmill but avoid any pulling [...] while being managed by your PCP and/or Exhibitor Sales. For future medication refills, please refer to your PCP and/or Exhibitor Sales after your discharge from our service. Thank you REMOVE CHEST TUBE SUTURES ON OR AFTER 03/02/24 Home oxygen therapy: N/A Follow up appointments: You should follow up with your PCP, Aparna Jordan APRN, in 1-2 weeks. Our office will schedule an appointment with your Exhibitor Sales, Neftali Ernandez MD , in 2 weeks. [...] Future Orders Complete By Expires Echocardiogram Transthoracic [26784 CPT(R)] 03/26/2024 09/25/2024 Process Instructions: Scheduling Instructions: Questions: Where will study be performed?: [facility] Clinics Does the patient have Congenital Heart Disease?: Does patient require sedation?: Sedation rationale: XR Chest PA & Lateral (Generic) [80961 87078 Custom] 03/26/2024 09/25/2024 Process Instructions: Scheduling Instructions: Questions: Portable exam?: Reason for exam and clinical history: s/p avr/cabg Clinical information / jerome questions for radiologist: Stat read required?: Date of injury if applicable: Requested Time: Where will study be performed?: [facility] Radiology Referral to Cardiac Rehab [[id number] Custom] As directed Process Instructions: If no [...] admission to Home Health. [address] Phone Number: Date of : 1960 Inpatient DOCUMENTATION FOR VNA SERVICES (INCLUDING THOSE PATIENTS WITH MEDICARE COVERAGE REQUIRING HOME VNA SERVICES AND/OR HOSPICE SERVICES) PATIENT'S LOCATION: Karlos Garcia [address] [place] [phone] Nanotechnician's Name: self/family In discussion with the attending physician, it is certified that this patient is under their care and that they, or a Nurse Practitioner, or Physician Tonger who is working directly with them, hada [...] for services as follows: HOME HEALTH AGENCY: [facility]. [address] [place] [address] RN orders: Cardiopulmonary assessment, incisional assessment, assess [...] issues please call the Cardiology Office at [phone] FOR MEDICARE ONLY: (please delete this section [...] [facility] Section of Cardiac Surgery [facility] [address] FAX [phone] Date: 02/24/2024 CC: Aparna Jordan, MAURI Jordan, Aparna Sherman APRN [address] [place] [address] documented in this encounter Discharge Instructions * [...] Hayder Graham and/or the Cardiac Surgery Physician Tonger Team may be reached at . Antibiotic [...] Dr. Hayder Graham. You may use a [place] Track or treadmill but avoid any pulling [...] while being managed by your PCP and/or Exhibitor Sales. For future medication refills, please refer to your PCP and/or Exhibitor Sales after your discharge from our service. Thank you REMOVE CHEST TUBE SUTURES ON OR AFTER 03/02/24 Home oxygen therapy: N/A Follow up appointments: You should follow up with your PCP, Aparna Jordan APRN, in 1-2 weeks. Our office will schedule an appointment with your Exhibitor Sales, Neftali Ernandez MD , in 2 weeks. [...] 0600 and on the weekends please page [phone]. * Eric Barahona PA - 02/23/2024 9:27 [...] 0600 and on the weekends please page [phone]. * Tiffanie Owens PTA - 02/22/2024 2:48 [...] d/c for 10 days. 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 * Kelley Hinson, POOL ATTENDANT - 02/21/2024 10:15 AM EDT Physical Therapy [...] d/c for 10 days. 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 * Kelley Hinson PTA - 02/20/2024 3:32 PM EDT 02/20/24 6712 Evaluation & Treatment Document Type contact Total Minutes, Physical Therapy 0 Comment, Session Not Performed Checked in w/ pt this PM for ongoing PT services, pt politely declined, stating he had been dealing w/ nausea all day, made plan to see him tomorrow morning, will f/u at that time Kelley Hinson PTA Pager: [phone] Physical Therapy Inpatient Rehab Department * Louisa [...] 0600 and on the weekends please page [phone]. * Maris Benavides, PT - 02/19/2024 11:22 [...] d/c for 10 days. 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 Precautions/Special Considerations: STERNAL [...] outlined inthis evaluation. MARIS BENAVIDES, PT Pager: [phone] Physical Therapy Inpatient Rehabilitation Department Time IN / OUT: 3316-6404 Total Time: 38 (eval) minutes; * Antonio [...] 0600 and on the weekends please page [phone]. * Minnie Begum PA - 02/18/2024 8:25 [...] 0600 and on the weekends please page [phone]. * Kim Ha RCP - 02/17/2024 2:25 [...] plan since last visit. Hayder Graham MD [phone] Source Note - Hayder Graham MD - [...] insufficiency. He has glaucoma. He used to [employer] until about 15 years ago. He has [...] given written informed consent. Hayder Graham MD [phone] * Hayder Graham MD - 02/17/2024 7:00 [...] given written informed consent. Hayder Graham MD [phone] documented in this encounter Miscellaneous Notes * [...] for follow-up Home Health & Hospice, [address] [place] [address] Cardiac Rehab, [facility] [address] [place] [address] Transportation: family or friend will provide Functional status prior to admission: Independent Home Environment: Others in the home: alone. Current Living Arrangements: home/apartment/condo. Accessibility Concerns:a few steps to enter 1 floor home. Current Functional Ability: Assistive Person and Equipment DME used at home: none DME Needed at Discharge: N/A Patient is insured through: Primary Insurance: [employer] Payor: [employer] / Plan: [facility] PPO / [...] pain managed with scheduled Tylenol. Worked with [employer]. Ambulated in the roque multiple times during [...] provider notified. Daughter at bedside. Ambulated in orque x1. PLAN MOVING FORWARD: Needs BM Ambulate [...] anticipated Patient is insured through: Primary Insurance: [employer] Payor: [employer] / Plan: [facility] PPO / [...] Services: Physical Therapy, Registered Nurse Agency Referrals: [facility] [address] [address] Transportation: family or friend will provide Barriers to discharge: Discharge planning Plan going forward: Service Care Management will continue to follow and assist with discharge planning and coordination of care as indicated. Anticipated Date of Discharge: 02/22/2024 Rhett Bell RN RN/CM - Cellphone: [phone] Pager: [phone] Covering Service RN/CM * Plan of Care [...] Yang RN - 02/19/2024 10:44 AM EDT [facility] CARDIAC REHABILITATION Karlos [...] receiving care in [place] must abide by [place] law. The hierarchy [...] In the past 12 months has the [employer] gas, oil, or water [employer] threatened to shut off services in [...] as: [address] [facility] [address] Physical address: [address] [facility], [address] Social & Family Supports: All names listed [...] Information: none noted Health/Prescription Coverage: Primary Insurance: [employer] Payor: [employer] / Plan: [facility] PPO / Product Type: *No Product type* / Secondary Insurance: N/A ; Prescription Coverage: Yes Preferred Pharmacy: [id number] AT [facility] & [address] [address] Status: Patient is a : No Primary Care Provider confirmed: Aparna Jordan, AZURE ARCHITECT [phone] Patient/Caregiver Goals of Treatment: dc to home Potential Needs for Transition of Care: home health care Agency Referrals: I have met with the patient to: discuss discharge planning needs. provide the [facility], Office of Care Management letter from the Outcomes Specialist pertaining to rehab referrals. provide a letter describing our affiliations within the [facility] and educate about their right to choose where referrals are sent. provide a list of Home Health Agencies / Durable Medical Equipment vendors which serve their preferred geographic area. provided patient with [facility] Star Quality Rating handout. They have requested referrals to: [facility] Care Agency [facility]. [address] [place] [address] Note routed to a [employer] who will communicate referrals to facilities and [...] Reina Greene RN CM, BSN, CMGT- Ext [phone] * Plan of Care - Binta Trinidad [...] Operative Note Patient Name: Karlos Garcia DOB: [id number] MR#: [id number] Case Date: 02/17/2024 Surgeon: Surgeon(s) and Role: * Hayder Graham MD - Primary * Neftali Menon PA - Physician Tonger Preoperative diagnosis: CAD Postoperative diagnosis: CAD, intraoperative [...] Graham MD - 02/17/2024 8:20 AM EDT [facility] Operative Note Patient Name: Karlos Garcia : [id number] MR#: [id number] Case Date: 02/17/2024 Surgeon: Surgeons and Role: * Hayder Graham MD - Primary * Neftali Menon PA - Physician Tonger Preoperative diagnosis: CAD Postoperative diagnosis: CAD, intraoperative [...] mL Drains: Mediastinal and Left pleural Disposition: [facility] Procedure Description: The patient was [...] Aortic Valve Open W Cardiopulmonary Bypass Homogrf/Stent (61339) Yes 02/17/2024 7:28 AM EDT CAD Cabg, Artery-Vein, Two (94747) Yes 02/17/2024 7:28 AM EDT CAD Cabg, Arterial, Single (65280) Yes 02/17/2024 7:28 AM EDT CAD Endoscopy W/Video-Asst Vein Cutler, Cabg (24272) Yes 02/17/2024 7:28 AM EDT CAD POCT [...] ORDERABLE S [facility] [place] [address] * (ABNORMAL) Basic Metabolic Panel (non-fasting) (02/23/2024 [...] CHEMISTRY ORDERABLES [facility] [place] [address] * Potassium (02/22/2024 4:30 AM EDT) [facility] Signature Potassium 3.5 3.5 - 5.0 mmol/L [facility] [...] ORDERABLE S [facility] [place] [address] * (ABNORMAL) Basic Metabolic Panel (non-fasting) (02/21/2024 [...] [facility]/ZIP Co de Phone Number [facility] [place] [address] * Lactate, whole blood, send to lab ([facility]) (02/21/2024 9:45 AM EDT) [facility] Lactate WB 2.0 0.5 - 2.2 mmol/L [facility] Blood 02/21/2024 9:45 AM EDT 02/21/2024 9:52 AM EDT Narrative Resulting Agency Comment Spec In Lab Hayder Graham MD CHEMISTRY ORDERABLE S Performing Organization Address [facility] Co de Phone Number [facility] [place] [address] * (ABNORMAL) Hepatic Function Panel (02/21/2024 9:45 AM EDT) [facility] Protein, Total 5.7(L) 6.1 - 8.0 g/dL [...] [facility]/ZIP Co de Phone Number [facility] [place] [address] * Lipase (02/21/2024 9:45 AM EDT) [facility] Lipase 56 0 - 60 unit/L [facility] Blood 02/21/2024 9:45 AM EDT 02/21/2024 9:52 AM EDT Narrative Resulting Agency Comment Spec In Lab Hayder Graham MD CHEMISTRY ORDERABLE S Performing Organization Address [facility] Co de Phone Number [facility] [place] [address] * Amylase (02/21/2024 9:45 AM EDT) Amylase 69 28 - 100 unit/L [facility] Blood 02/21/2024 9:45 AM EDT 02/21/2024 9:52 AM EDT Narrative Resulting Agency Comment Spec In Lab Hayder Graham MD CHEMISTRY ORDERABLE S Performing Organization Address [facility] de Phone Number [facility] [place] [address] * Potassium (02/21/2024 3:08 AM EDT) [facility] Potassium 3.8 3.5 - 5.0 mmol/L [facility] [...] CHEMISTRY ORDERABLE S Performing Organization Address [facility] Co de Phone Number [facility] [place] [address] * XR Chest PA & Lateral (Generic) (02/20/2024 10:19 AM EDT) WORKSTATION ID [id number] DH RAD Anatomical Region Laterality Modality Chest [...] leader that requested your imaging first. ? Narrative 02/20/2024 1:11 PM EDT EXAMINATION: XR CHEST PA AND LATERAL (GENERIC) CLINICAL HISTORY: s/p AVR/CABGx3 TECHNIQUE: PA and lateral views of the chest COMPARISON: 02/17/2024 FINDINGS: Support devices: Interval removal of [place] catheter, endotracheal tube and mediastinal chest tubes The cardiac silhouette is stable status post median sternotomy, CABG and aortic valve replacement. There are small pleural effusions. No pneumothorax. Procedure Note Rogerio Cruz MD - 02/20/2024 EXAMINATION: XR CHEST PA AND LATERAL (GENERIC) CLINICAL HISTORY: s/p AVR/CABGx3 TECHNIQUE: PA and lateral views of the chest COMPARISON: 02/17/2024 FINDINGS: Support devices: Interval removal of [place] catheter, endotracheal tubeand mediastinal chest tubes The [...] [facility] Plat estimate Decreased [facility] RBC Morphology Normal [facility] Blood 02/20/2024 4:23 AM EDT 02/20/2024 4:42 AM EDT Narrative Resulting Agency Comment Spec In Lab Minnie FRENCH HEMATOLOGY CECILIO ALEMAN [facility] [place] [address] * (ABNORMAL) Differential, Automated (02/20/2024 4:23 AM EDT) [facility] Neutrophil % 81.7 % [facility] Neutrophil Absolute 10.37(H) 1.70 - 6.10 x10(3)/mc L [facility] Lymph % 7.4 % [facility] Lymphocytes Abs 0.9 0.9 - 3.2 x10(3)/mc L [facility] Monocyte % 9.7 % [facility] Monocyte Abs 1.2(H) 0.3 - 0.9 x10(3)/mc L [facility] Eos % 0.1 % [facility] Eosinophils Abs 0.0 0.0 - 0.4 x10(3)/mc L [facility] Basophil % 0.2 % [facility] [...] CECILIO ALEMAN [facility] [place] [address] * (ABNORMAL) Hemogram (02/20/2024 4:23 AM EDT) [...] [facility]AT[facility] NRBC% auto 0.0 % [facility] NRBC Absolute 0.000 0.000 - 0.000 x10(3)/mc L [facility] Blood 02/20/2024 4:23 AM EDT 02/20/2024 4:42 AM EDT Narrative Resulting Agency Comment Spec In Lab Minnie FRENCH HEMATOLOGY CECILIO ALEMAN [facility] [place] [address] * (ABNORMAL) Basic Metabolic Panel (non-fasting) (02/20/2024 [...] CHEMISTRY ORDERABLE S Performing Organization Address [facility] Co de Phone Number [facility] [place] [address] * Potassium (02/19/2024 3:57 AM EDT) Potassium [...] CHEMISTRY ORDERABLE S Performing Organization Address [facility] Co de Phone Number [facility] [place] [address] * POCT Glucose (02/18/2024 8:24 AM EDT) Glucose, POC 157 65 - 199 mg/dL [facility] Comment: Supplemental ranges: <140 mg/dL before meals <180 mg/dL all other times of the day Blood 02/18/2024 8:24 AM EDT 02/18/2024 8:24 AM EDT Hayder Graham MD POINT OF CARE TEST ORDERABLES [facility] [place] [address] * Scan, Peripheral Blood (02/18/2024 1:40 AM EDT) Pathologist [facility] Emergency Department Plat estimate Decreased [facility] RBC Morphology Normal [facility] Blood 02/18/2024 1:40 AM EDT 02/18/2024 1:56 AM EDT Narrative Resulting Agency Comment Spec In Lab Neftali FRENCH HEMATOLOGY ORDER OLE Performing Organization Address City/[facility]/ZIP Co de Phone Number [facility] [place] [address] * (ABNORMAL) Differential, Automated (02/18/2024 1:40 AM EDT) [facility] Neutrophil % 87.1 % [facility] Neutrophil Absolute 15.03(H) 1.70 - 6.10 x10(3)/mc L [facility] Lymph % 3.0 % [facility] Lymphocytes Abs 0.5(L) 0.9 - 3.2 x10(3)/mc L [facility] Monocyte % 9.1 % [facility] Monocyte Abs 1.6(H) 0.3 - 0.9 x10(3)/mc L [facility] Eos % 0.0 % [facility] Eosinophils Abs 0.0 0.0 - 0.4 x10(3)/mc L [facility] Basophil % 0.2 % [facility] [...] ORDER OLE [facility] [place] [address] * (ABNORMAL) Hemogram (02/18/2024 1:40 AM EDT) White Blood Cell 17.2(H) 4.0 - 9.5 x10(3)/ L [facility] Red Blood Cell 4.71 4.58 - 5.54 x10(6)/ L [facility] Hemoglobin [...] MEDICAL CENTER LABORATORY NRBC% auto 0.0 % [facility] NRBC Absolute 0.000 0.000 - 0.000 x10(3)/ L [facility] Blood 02/18/2024 1:40 AM EDT 02/18/2024 1:56 AM EDT Narrative Resulting Agency Comment Spec In Lab Neftali FRENCH HEMATOLOGY ORDER OLE [facility] [place] [address] * (ABNORMAL) Basic Metabolic Panel (non-fasting) (02/18/2024 [...] [facility]/ZIP Co de Phone Number [facility] [place] [address] * (ABNORMAL) Troponin (02/18/2024 1:40 AM EDT) [...] found in the [facility] Laboratory Test Catalog Troponin - [facility] Laboratory Test Catalog Reference: Fourth [place] Definition of Myocardial Infarction. Journal of the [place] [employer] 2018;72:7697-6484 Blood 02/18/2024 1:40 AM EDT 02/18/2024 1:56 AM EDT Narrative Resulting Agency Comment Spec In Lab Hayder Graham MD CHEMISTRY ORDERABLE S [facility] [place] [address] * POCT Glucose (02/17/2024 8:13 PM EDT) Glucose, POC 142 65 - 199 mg/dL [facility] Comment: Supplemental ranges: <140 mg/dL before meals <180 mg/dL all other times of the day Blood 02/17/2024 8:13 PM EDT 02/17/2024 8:13 PM EDT Hayder Graham MD POINT OF CARE TEST ORDERABLES Performing Organization Address [facility] Co de Phone Number [facility] [place] [address] * POCT Glucose (02/17/2024 5:42 PM EDT) Glucose, POC 160 65 - 199 mg/dL [facility] Comment: Supplemental ranges: <140 mg/dL before meals <180 mg/dL all other times of the day Blood 02/17/2024 5:42 PM EDT 02/17/2024 5:42 PM EDT Hayder Graham MD POINT OF CARE TEST ORDERABLES Performing Organization Address [facility]/ZIP Co de Phone Number [facility] [place] [address] * Hemoglobin (02/17/2024 5:42 PM EDT) Hemoglobin 13.7 13.7 - 16.5 g/dL [facility] Blood 02/17/2024 5:42 PM EDT 02/17/2024 6:10 PM EDT Narrative Resulting Agency Comment Spec In Lab Hayder Graham MD HEMATOLOGY ORDERABL ES [facility] [place] [address] * Potassium (02/17/2024 5:42 PM EDT) Potassium [...] [facility] Co de Phone Number [facility] [place] [address] * (ABNORMAL) BLOOD GAS 2 ARTERIAL (02/17/2024 [...] TEST ORDERABLES [facility] [place] [address] * XR Chest One View (02/17/2024 1:44 PM EDT) [employer] WORKSTATION ID [id number] DH RAD Anatomical Region Laterality Modality Chest N/A Digital Radiogra phy Impressions 02/17/2024 2:12 PM EDT 1. ??No definite pleural fluid collection or pneumothorax. 2. ??Right IJ [place]aila catheter tip terminates in a descending branch [...] leader that requested your imaging first. ? Narrative 02/17/2024 2:12 PM EDT EXAMINATION: XR CHEST ONE VIEW CLINICAL HISTORY: s/p avr/cabg eval effusions TECHNIQUE: 1 view of the chest COMPARISON: Chest x-ray 01/09/2024, chest CT 02/03/2024 FINDINGS: ET tube tip terminates 5.2 cm above the carlos. Right IJ [place]Kaila catheter tip terminates in a descending branch [...] 5.2 cm above the carlos. Right IJ [place]-Ganzcatheter tip terminates in a descending branch of [...] fluid collection or pneumothorax. 2. Right IJ [place]aila catheter tip terminates in a descending branch [...] TEST ORDERABLES [facility] [place] [address] * (ABNORMAL) Coox2 (02/17/2024 1:21 PM EDT) [...] ORDERABLES [facility] [place] [address] * (ABNORMAL) BLOOD GAS 2 ARTERIAL (02/17/2024 [...] OF CARE TEST ORDERABLES Performing Organization Address [facility]/ZIP Co de Phone Number [facility] [place] [address] * (ABNORMAL) Fibrinogen (02/17/2024 12:10 PM EDT) [...] [facility]/ZIP Co de Phone Number [facility] [place] [address] * (ABNORMAL) Thrombin time (02/17/2024 12:10 PM [...] MD HEMATOLOGY ORDERABLE S Performing Organization Address [facility] Co de Phone Number [facility] [place] [address] * APTT (02/17/2024 12:10 PM EDT) Partial [...] MD HEMATOLOGY ORDERABLE S Performing Organization Address [facility] Co de Phone Number [facility] [place] [address] * (ABNORMAL) Prothrombin Time (02/17/2024 12:10 PM [...] ORDERABLE S [facility] [place] [address] * (ABNORMAL) Hemogram (02/17/2024 12:10 PM EDT) [...] [facility] NRBC% auto 0.0 % [facility] NRBC Absolute 0.000 0.000 - 0.000 x10(3)/mc L [facility] Blood 02/17/2024 12:1 0 PM EDT 02/17/2024 12:19 PM EDT Narrative Resulting Agency Comment Spec In Lab Tara York MD HEMATOLOGY ORDERABLE S [facility] [place] [address] * (ABNORMAL) BLOOD GAS 2 ARTERIAL (02/17/2024 [...] [facility] Comment: Noted by instrument tech. Please [...] TEST ORDERABLES [facility] [place] [address] * (ABNORMAL) BLOOD GAS 2 ARTERIAL (02/17/2024 [...] [facility] Comment: Noted by instrument tech. Please [...] OF CARE TEST ORDERABLES Performing Organization Address [facility]/ZIP Co de Phone Number [facility] [place] [address] * (ABNORMAL) Hemoglobin and Hematocrit, blood (02/17/2024 [...] [facility] [address] * (ABNORMAL) Platelet count (02/17/2024 11:04 AM EDT) Platelet 106(L) 145 - 357 x10(3)/mc L [facility] Immature Plt % 1.6 0.0 - 7.4 % [facility] Comment: Limitation of the Immature Platelet Fraction (IPF)-May be less reliable when the platelet count is less than 99j844/uL due to statistical imprecision. The IPF value [...] in a decreased state of production. References: [employer] The Clinical Value of the Immature Platelet Fraction (IPF) in Cell Recovery Document Number [id number] 03/2011 [employer] The Role of the Immature Platelet Fraction (IPF) in the Differential Diagnosis of Thrombocytopenia, Document MKT-[id number] V002/15/14 Blood 02/17/2024 11:0 4 AM EDT 02/17/2024 11:12 AM EDT Narrative Resulting Agency Comment Spec In Lab Hayder Graham MD HEMATOLOGY ORDERABL ES Performing Organization Address City/State/[facility] Co de Phone Number [facility] [place] [address] * (ABNORMAL) Fibrinogen (02/17/2024 11:04 AM EDT) [...] ORDERABL ES [facility] [place] [address] * (ABNORMAL) BLOOD GAS 2 ARTERIAL (02/17/2024 [...] TEST ORDERABLES [facility] [place] [address] * (ABNORMAL) BLOOD GAS 2 ARTERIAL (02/17/2024 [...] TEST ORDERABLES [facility] [place] [address] * Surgical Pathology Report (02/17/2024 10:01 AM EDT) Final Diagnosis [id number] ? Location: [facility]; [facility]; The signing pathologist has (i) examined the relevant preparation(s) for the specimen(s) and (ii) rendered or confirmed the diagnosis(es). . ?Surgical Pathology DIAGNOSIS Aortic valve leaflets, excision: Valve leaflets with myxoid degeneration, nodular fibrosis and dystrophic calcifications. Electronically signed by: ?Livier Montoya MD Verified: ??02/24/2024 13:49 ??Pathologist Performed at: ??[facility] Dept. of Pathology, [place] [address] Outcomes Specialist: Job Brewer MD, FCAP, ??IA Certificate: [id number] SPECIMEN(S) SUBMITTED A - Aortic Valve Leaflets, [...] Sections Processing Blocks submitted for decalcification: A1. Radiator Fitter sections in 1 cassette labeled A1. ??ajw 02/24/2024 1:49 PM EDT [facility] AORTIC STRUCTURE / Unknown 02/17/2024 10:01 AM EDT 02/17/2024 10:01 AM EDT Hayder Graham MD PATHOLOGY/CYTOLOGY ORDERABLES [facility] [place] [address] * Specimen to Pathology (02/17/2024 10:01 AM EDT) AP Specimen 02/17/2024 10:0 1 AM EDT 02/17/2024 10:01 AM EDT Narrative [facility] - 02/17/2024 10:01 AM EDT Specimen requisition ordered. ??Separate Pathology report to follow Hayder Graham MD PATHOLOGY/CYTOLOGY ORDERABLES Performing Organization Address City/[facility]/ZIP Co de Phone Number [facility] [place] [address] * (ABNORMAL) BLOOD GAS 2 ARTERIAL (02/17/2024 [...] TEST ORDERABLES [facility] [place] [address] * (ABNORMAL) BLOOD GAS 2 VENOUS (02/17/2024 9:34 AM EDT) pH, Venous 7.22(Criti marquez) 7.32 - 7.42 [facility] Comment:Noted by instrument tech. PCO2, Venous 43 41 - 51 mmHg [facility] Comment:Noted by instrument tech. PO2, Venous 57(H) 25 - 40 mmHg [facility] Comment:Noted by instrument tech. Bicarbonate, Venous 17.1 mmol/L [facility] Comment:Noted by instrument tech. Base Excess, Venous -10.6 mmol/L [facility] Comment:Noted by instrument tech. Hgb Blood Gas 11.2(L) 13.7 - 16.5 g/dL [facility] Comment:Noted by instrument tech. Oxyhemoglobin, Venous 86.5 % [facility] Comment:Noted by instrument tech. Carboxyhemoglob in, Venous 0.3 % [facility] Comment: Noted by instrument tech. Nonsmokers: 0.5-1.5% COHB Smokers: Variable, but usually less than 10% Toxic: 20-30% COHB Lethal: Greater than 60% COHB Methemoglobin, Venous 0.0 <=1.5 % [facility] Comment:Noted by instrument tech. Na Whole Blood 156(H) 135 - 145 mmol/L [facility] Comment:Noted by instrument tech. K Whole Blood 5.5(H) 3.5 - 5.0 mmol/L [facility] Comment: Noted by instrument tech. Please note: Patients with WBC >100,000 may have falsely elevated Potassium levels. Contact the Clinical Chemistry Laboratory if there are any questions. ICa Whole Blood 1.03(L) 1.15 - 1.33 mmol/L [facility] Comment: Noted by instrument tech. Note: ??Total bilirubin higher than 20 mg/dL may lead to falsely low ionized calcium. CL Whole Blood 100 98 - 107 mmol/L [facility] Comment:Noted by instrument tech. Gluc Whole Bld 132 65 - 199 mg/dL [facility] Comment: Noted by instrument tech. Diabetes: >=200 mg/dL plus symptoms Lactate WB 1.0 0.5 - 2.2 mmol/L [facility] Comment:Noted by instrument tech. Blood Gas Source Venous [facility] Blood 02/17/2024 9:34 AM EDT 02/17/2024 9:34 AM EDT Hayder Graham MD POINT OF CARE TEST ORDERABLES [facility] [place] [address] * (ABNORMAL) BLOOD GAS 2 ARTERIAL (02/17/2024 [...] OF CARE TEST ORDERABLES Performing Organization Address [facility] Co de Phone Number [facility] [place] [address] * POCT Glucose (02/17/2024 6:38 AM EDT) Glucose, POC 98 65 - 199 mg/dL [facility] Comment: Supplemental ranges: <140 mg/dL before meals <180 mg/dL all other times of the day Blood 02/17/2024 6:38 AM EDT 02/17/2024 6:38 AM EDT Hayder Graham MD POINT OF CARE TEST ORDERABLES Performing Organization Address [facility] de Phone Number [facility] [place] [address] * Transesophageal Echo/OR (02/17/2024 6:33 AM EDT) [...] [facility] [...] 6 hours upon arrival to Unit. Give VT if unable to take PO, Routine Given [...] dose on Sat02/17/24 at 1400, Until Discontinued, [place] teeth and / or gums. Scan the CHG vial in the Save[employer] Q-Care Oral Care Kit from floor stock. Ventilator-associated pneumonia prophylaxis For use in ICU/Critical care locations ONLY. Obtain kit from Floor Stock location. Scan CHG vial in the Save[employer] Q-Care Oral Care Kit, Routine Given 02/17/2024 [...] restart at 50% of previous rate. Call dimension warehouse supervisor if goal not achieved at maximum [...] at 1528, Until Sat02/17/24 at 1532, Shayla Godl: cabinet override dextrose 5% and sodium chloride [...] PHENYLephrine and/or vasopressin ineffective. Call pager # [phone] if initiated. Titrate to keep systolic blood [...] 2.0 L/min/M2. Maximum volume 2 L. Call dimension warehouse supervisor for additional fluid orders: pager #[phone]. Rate/Dose Verify 02/18/2024 8:00 AM EDT 1 mL/hr 1 mL/hr Rate/Dose Verify 02/18/2024 6:00 AM EDT 1 mL/hr 1 mL/hr Rate/Dose Verify 02/18/2024 4:00 AM EDT 1 mL/hr 1 mL/hr sodium chloride 0.9% infusion 10-30 mL/hr, Intravenous, DAILY PRN, Starting on Sat02/17/24 at 1307, Until Sat02/18/24 at 0835, Side port TKO rate, per [facility] nursing protocol. Rate/Dose Verify 02/17/2024 [...] at 1000, Routine 1002 (Given - Provider: Inrgid Menjivar RN) metoprolol tartrate (Lopressor) tablet 50 [...] Routine documented in this encounter Care Teams [employer] Planners Relationship Specialty Start Date End Date Aparna Jordan APRN PCP - General Family Medicine 10/21/23 05/26/24 documented as of this encounter
--- OUTSIDE RECORDS SUMMARY | 2024-10-01 09:58 | XMS_ITS | Encounter Summary ---
[place] [address] Care Team Providers Care Singeing Torch Operator Name Role Phone Vanessa Christian MAURI Primary Care Provider [phone] Reason for Visit * Auth/Cert (Routine) Specialty [...] 5.9) Rima Dickinson MD [facility] [place] [address] [facility] Referral ID Status Reason Start Date Expiration Date Visits Re quested Visits Authorized [id number] 1 1 Encounter Details Date Type Department Care Team (Late st Contact Info) Description 02/03/2024 10:00 AM EDT - 02/03/2024 11:00 AM [place] [address] Saira Lua MD CARDIAC CATHETERIZATION Social History [...] lbs Follow-up Visits Follow up with your promotions manager in 2-4 weeks Access Site '[place] and Blue' and tenderness is expected during the first week Call if you noted a mass (lump) greater than the size of a ellis Call Office with any Questions and if you have any of the following Clarence Lane M.D Interventional Mortar Carrier Telemarketing Manager #: [phone] * Attachments The following attachments cannot be sent through Care Everywhere. * CAD (Coronary Artery Disease): General Info (American) * Coronary Angiogram: Post-op (American) documented in this encounter Medications at Time [...] MD - 02/03/2024 11:48 AM EDT [facility] Interventional Cardiology Adult Pre-Procedure H&P Update: Cardiac Catheterization Karlos Anthony [id number] 1960 Chief Complaint: Aortic stenosis HPI: Mr. [...] is inthe chart Clarence Lane MD Interventional Mortar Carrier 02/03/24 11:48 AM documented in this encounter Miscellaneous Notes * Brief Op Note - Clarence Lane MD - 02/03/2024 12:51 PM EDT Preliminary Cardiac Catheterization Procedure Note: Patient Name: Karlos Anthony : [id number] MR#: [id number] Case Date: 02/03/2024 Telemarketing Manager: Surgeon(s) and Role: * Saira Lua [...] ? Procedure Date: 02/03/2024 ? A #: [id number] ? Primary Physician: Mogadam, Emad ? Case #: [id number] ? File Name: [id number] ? Catheterization Order Number: [id number] ? [facility] ? Final Report [place], [place] ? Patient Name: ? Karlos Patenaude ? ID#: ?[id number] ? : ?1960 ? Procedure Date: ? [...] Karlos Anthony Procedure Date: 02/03/2024 A #: [id number] Primary Physician: Saira Lua Case #: [id number] File Name: [id number] Catheterization Order Number: [id number] [facility] FinalReport [place], [place] Patient Name: Karlos Anthony ID#:[id number] :1960 Procedure Date: February 03, 2024 Case [...] designated as ASA Class III. The [facility] clinical frailty scale is 3: Managing [...] (Bezet) 372 ms MUSE SYSTEM Calculated P [place] 59 degrees MUSE SYSTEM Calculated R [place] 34 degrees MUSE SYSTEM Calculated T [place] 63 degrees MUSE SYSTEM INTERPRETATION Sinus bradycardia [...] MD) documented in this encounter Care Teams Singeing Torch Operator Relationship Specialty Start Date End Date Vanessa Christian APRN PCP - General Family Medicine 10/21/23 05/26/24 documented as of this encounter
--- OUTSIDE RECORDS SUMMARY | 2024-10-01 09:58 | XMS_ITS | Encounter Summary ---
Author Organization [facility] [place] [address] Care Team Providers Care Evp Sales Name Role Phone Vanessa Christian Lane DOTSON Primary Care Provider [phone] Reason for Referral * Diagnostic Test (Routine) - Closed Specialty Diagnoses / Procedures Referred By Contac t Referred To Contact Radiology Diagnoses Nonrheumatic aortic valve stenosis Procedures CT Chest wo Contrast (Generic) Louisa Cho PA [facility] DR CARDIOTHORACIC [place] [address] [facility] [place] [address] Referral ID Status Reason Start Date Expiration Date V isits Requested Visits Authorized [id number] Closed Specialty Service Requested 01/10/2024 07/11/2025 1 1 Reason for Visit * Diagnostic Test (Routine) - Closed Specialty Diagnoses / Procedures Referred By Contac t Referred To Contact Radiology Diagnoses Nonrheumatic aortic valve stenosis Procedures CT Chest wo Contrast (Generic) Louisa Cho PA [facility] CARDIOTHORACIC [place] [address] [facility] [place] [address] Referral ID Status Reason Start Date Expiration Date V isits Requested Visits Authorized [id number] Closed Specialty Service Requested 01/10/2024 07/11/2025 1 1 Encounter Details Date Type Department Care Team (Latest Contact Info) Description 02/03/2024 7:36 AM EDT - 02/03/2024 8:05 AM EDT Hospital Encounter CT Scan at [facility] [place] [place] [address] Zak Farmer MD [facility] CARDIOTHORACIC [place] [address] Nonrheumatic aortic valve stenosis Discharge Disposition: Home Social History Tobacco Use Types Packs/Day Years Used Date Smoking Tobacco: Former Cigarettes Smokeless Tobacco: Never Comments:Quit 15 + years ago Alcohol Use Standard Drinks/Week Comments Yes 0 (1 standard drink = 0.6 oz pur e alcohol) rare [facility] Inpatient Questions Answer Date Recorded Does [...] wo Contrast (Generic) (02/03/2024 7:44 AM EDT) [employer] ([employer]) Signature WORKSTATION ID [id number] RAD Anatomical Region Laterality Modality Chest Computed [...] who have questions please contact the health careers counsellor that requested your imaging first. ? Narrative [...] nodule along the minor fissure (series 302 [id number]) and a 8 mm right lower lobe [...] patients who have questions please contactthe health careers counsellor that requested your imaging first. Zak Farmer MD IMG CT ORDERABLES documented in this encounter Visit Diagnoses Diagnosis Nonrheumatic aortic valve stenosis Aortic valve disorders documented in this encounter Care Teams Evp Sales Relationship Specialty Start Date End Date Vanessa Christian APRN PCP - General Family Medicine 10/21/23 05/26/24 documented as of this encounter
--- OUTSIDE RECORDS SUMMARY | 2024-10-01 09:58 | XMS_ITS | Encounter Summary ---
Author Organization [place] [address] Care Team Providers Care Family And Consumer Sciences Professor Name Role Phone Vanessa Christian Lane DOTSON Primary Care Provider [phone] Encounter Details Date Type Department Care Team (Latest Contact Info) Description 01/09/2024 3:00 PM EDT Laboratory [place] [id number] Nonrheumatic aortic valve stenosis Social History Tobacco Use Types Packs/Day Years Used Date Smoking Tobacco: Former Cigarettes Smokeless Tobacco: Never Comments:Quit 15 + years ago Alcohol Use Standard Drinks/Week Comments Yes 0 (1 standard drink = 0.6 oz pur e alcohol) rare [facility] Inpatient Questions Answer Date Recorded Prevent [...] stenosis TYPE AND SCREEN, SDP (FUTURE SURGERY, [facility] SAME DAY PROGRAM [...] Status (01/09/2024 2:58 PM EDT) Pathologist [facility] ABORH Recheck Order Order Placed [facility] ABORH Type Recheck Completed [facility] Blood 01/09/2024 2:58 PM EDT 01/09/2024 3:08 PM EDT Narrative Resulting Agency Comment Spec In Lab Zak Farmer MD BLOOD BANK LAB ORDE ASH [facility] [place] [address] * Differential, Automated (01/09/2024 2:58 PM EDT) Neutrophil % 70.5 % [facility] Neutrophil Absolute 4.34 1.70 - 6.10 x10(3)/[facility] Lymph % 18.9 % [facility] Lymphocytes Abs 1.2 0.9 - 3.2 x10(3)/[facility] Monocyte % 8.0 % [facility] Monocyte Abs 0.5 0.3 - 0.9 x10(3)/[facility] Eos % 1.6 % [facility] Eosinophils Abs 0.1 0.0 - 0.4 x10(3)/[facility] Basophil % 0.5 % [facility] [...] ORDERABL ES [facility] [place] [address] * Hemogram (01/09/2024 2:58 PM EDT) [facility] NRBC% auto 0.0 % [facility] NRBC Absolute 0.000 0.000 - 0.000 x10(3)/[facility] Blood 01/09/2024 2:58 PM EDT 01/09/2024 3:03 PM EDT Narrative Resulting Agency Comment Spec In Lab Zak Farmer MD HEMATOLOGY ORDERABL ES [facility] [place] [address] * Basic Metabolic Panel (non-fasting) (01/09/2024 2:58 [...] MD CHEMISTRY ORDERABLE S Performing Organization Address [facility] Co de Phone Number [facility] [place] [address] * Hepatic Function Panel (01/09/2024 2:58 PM [...] MD CHEMISTRY ORDERABLE S Performing Organization Address [facility] Co de Phone Number [facility] [place] [address] * Prothrombin Time (01/09/2024 2:58 PM EDT) [...] ORDERABL ES Performing Organization Address City/[facility]/ZIP Co de Phone Number [facility] [place] [address] * Type and Screen Future Surgery, [facility] SAME DAY PROGRAM [...] Farmer MD BLOOD BANK LAB ORDE RABLES [facility] [place] [address] documented in this encounter Visit Diagnoses Diagnosis Nonrheumatic aortic valve stenosis Aortic valve disorders documented in this encounter Care Teams Family And Consumer Sciences Professor Relationship Specialty Start Date End Date Vanessa Christian APRN PCP - General Family Medicine 1/15/24 8/20/24 documented as of this encounter
--- OUTSIDE RECORDS SUMMARY | 2024-10-01 09:58 | XMS_ITS | Encounter Summary ---
Author Organization [facility] [place] [address] Care Team Providers Care Junior Manufacturing Engineer Name Role Phone Vanessa Christian MAURI Primary Care Provider [phone] Reason for Visit * Auth/Cert (Routine) Specialty [...] W RHC (WRVU 5.9) Rima Dickinson MD [facility] [place] [address] [facility] Referral ID Status Reason Start Date Expiration Date Visits Re quested Visits Authorized [id number] 1 1 Encounter Details Date Type Department Care Team (Latest Contact Info) Description 02/03/2024 8:06 AM EDT - 02/03/2024 2:54 PM EDT Hospital Encounter [place] [address] Rima Dickinson MD [facility] [place] [address] Screening for cardiovascular condition; Aortic valve stenosis, [...] lbs Follow-up Visits Follow up with your office assistant receptionist in 2-4 weeks Access Site 'Black and Blue' and tenderness is expected during the first week Call if you noted a mass (lump) greater than the size of a ellis Call Office with any Questions and if you have any of the following Clarence Lane M.D Interventional Quantitative Analyst Marketing Composite Bond Technician #: [phone] * Attachments The following attachments cannot be sent through Care Everywhere. * CAD (Coronary Artery Disease): General Info (Citizen Of [place]) * Coronary Angiogram: Post-op (Citizen Of [place]) documented in this encounter Medications at Time [...] MD - 02/03/2024 11:48 AM EDT [facility] Interventional Cardiology Adult Pre-Procedure H&P Update: Cardiac Catheterization Karlos Anthony [id number] 1960 Chief Complaint: Aortic stenosis HPI: Mr. [...] is inthe chart Clarence Lane MD Interventional Quantitative Analyst Marketing 02/03/24 11:48 AM documented in this encounter Miscellaneous Notes * Brief Op Note - Clarence Lane MD - 02/03/2024 12:51 PM EDT Preliminary Cardiac Catheterization Procedure Note: Patient Name: Karlos Anthony : [id number] MR#: [id number] Case Date: 02/03/2024 Composite Bond Technician: Surgeon(s) and Role: * Saira Lua [...] ? Procedure Date: 02/03/2024 ? A #: [id number] ? Primary Physician: Mogadam, Emad ? Case #: [id number] ? File Name: [id number] ? Catheterization Order Number: [id number] ? [facility] ? Final Report [place], [place] ? Patient Name: ? Karlos Anthony ? ID#: ?[id number] ? : ?1960 ? Procedure Date: ? [...] Karlos Anthony Procedure Date: 02/03/2024 A #: [id number] Primary Physician: Saira Lua Case #: [id number] File Name: [id number] Catheterization Order Number: [id number] [facility] FinalReport [place], [place] Patient Name: Karlos Anthony ID#:[id number] :1960 Procedure Date: February 03, 2024 Case [...] (Bezet) 372 ms MUSE SYSTEM Calculated P [place] 59 degrees MUSE SYSTEM Calculated R [place] 34 degrees MUSE SYSTEM Calculated T [place] 63 degrees MUSE SYSTEM INTERPRETATION Sinus bradycardia [...] MD) documented in this encounter Care Teams Junior Manufacturing Engineer Relationship Specialty Start Date End Date Vanessa Christian, MAURI PCP - General Family Medicine 10/21/23 05/26/24 documented as of this encounter
--- OUTSIDE RECORDS SUMMARY | 2024-10-01 09:58 | XMS_ITS | Encounter Summary ---
Author Organization [facility] [place] [address] Care Team Providers Care Superintendent Mechanical Name Role Phone Vanessa Christian APRN Primary Care Provider [phone] Encounter Details Date Type Department Care Team (Late st Contact Info) Description 01/10/2024 Orders Only [place] [id number] Lawson Napoles PA [facility] [place] [address] [place] [address] Screening for cardiovascular condition; Aortic valve stenosis, [...] unspecified documented in this encounter Care Teams Superintendent Mechanical Relationship Specialty Start Date End Date Vanessa Christian APRN PCP - General Family Medicine 10/21/23 05/26/24 documented as of this encounter
--- OUTSIDE RECORDS SUMMARY | 2024-10-01 09:58 | XMS_ITS | Encounter Summary ---
[facility] [place] [address] Care Team Providers Care Freight Hustler Name Role Phone Aparna Jordan MAURI Primary Care Provider [phone] Reason for Visit * Auth/Cert (Routine) Specialty [...] ARTERIAL GRAFT (WRVU 7.93) Hayder Graham MD [facility] [place] [address] [facility] Referral ID Status Reason Start Date Expiration Date Visits Re quested Visits Authorized [id number] 1 1 Encounter Details Date Type Department Care Team (Late st Contact Info) Description 02/17/2024 7:30 AM EDT - 02/17/2024 1:26 PM EDT Surgery [place] [id number] Hayder Graham MD [facility] [place] [address] ENDOSCOPIC HARVEST VEIN(S) FOR CABG (WRVU 0.31) [...] Patient Age: 63 y.o. Birthdate: 1960 Language: Portuguese Race: White Ethnicity: Not nor Admit Date: 02/17/2024 Discharge Date: 02/24/24 Attending Physician: Hayder Graham MD Follow-up Recommendations for Providers: Please continue routine management of cardiovascular risk factors including blood pressure, lipids,glucose, etc. Please note any changes to medications. Patient to follow up with PCP, Aparna Jordan APRN, in 1-2 weeks. Patient to follow up with Exhibit Cleaner, Neftali Ernandez MD , in 2 weeks. Patient to follow up with Cardiac Surgeon, Dr. Hayder Graham, with a chest x-ray, EKG, and Echo. Inpatient Provider Contact Information: [facility] Section of [place]iac [place] [facility] [place] [phone] FAX [phone] Discharge Diagnoses (Hospital Problems) Primary Diagnoses: /CAD [...] Hypertension 08/14/2023 Nevus of face 09/26/2023 Right anabaptist Past Surgical History: Procedure Laterality Date PRO CABG, ARTERIAL, SINGLE N/A 02/17/2024 @CABG, USING ARTERIAL GRAFT;SINGLE ARTERIAL GRAFT (WRVU 33.75) performed by Hayder Graham MD at [facility] MAIN OR PRO CABG, ARTERY-VEIN, TWO N/A 02/17/2024 @CABG, TWO VENOUS GRAFTS & ARTERIAL GRAFT (WRVU 7.93) performed by Hayder Graham MD at [facility] MAIN OR PRO ENDOSCOPY W/VIDEO-ASST VEIN HARVEST, CABG Left 02/17/2024 ENDOSCOPIC HARVEST VEIN(S) FOR CABG (WRVU 0.31) performed by Hayder Graham MD at [facility] MAIN OR PRO REPLACEMENT PROSTHETIC AORTIC VALVE OPEN W CARDIOPULMONARY BYPASS HOMOGRF/STENT N/A 02/17/2024 @REPLACE AORTIC VALVE, OPEN, W\CPB, W\PROSTHETIC VALVE (WRVU 41.32) performed by Hayder Graham MD at [facility] MAIN OR Prior To Admission [...] insufficiency. He has glaucoma. He used to bac[employer]ingPal until about 15 years ago. He has undergone prior herniorrhaphy. 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 Major Procedures/Operations: 02/17/24 s/p avr/cabgx3 CABG x 3 JOSE->LAD SVG->dRCA SVG->OM1 EVH from LLE AVR with a 23 mm Inspiris Bioprosthesis Hospital Course: Karlos Garcia was admitted to [facility] on 02/17/2024 via the Same Day Program. [...] Graham and/or the Cardiac Surgery Physician Operations Manager Assistant Team may be reached at . [...] Dr. Hayder Graham. You may use a [place] Track or treadmill but avoid any pulling [...] while being managed by your PCP and/or Exhibit Cleaner. For future medication refills, please refer to your PCP and/or Exhibit Cleaner after your discharge from our service. Thank you REMOVE CHEST TUBE SUTURES ON OR AFTER 03/02/24 Home oxygen therapy: N/A Follow up appointments: You should follow up with your PCP, Aparna Jordan APRN, in 1-2 weeks. Our office will schedule an appointment with your Exhibit Cleaner, Neftali Ernandez MD , in 2 weeks. [...] Future Orders Complete By Expires Echocardiogram Transthoracic [60271 CPT(R)] 03/26/2024 09/25/2024 Process Instructions: Scheduling Instructions: Questions: Where will study be performed?: [facility] Clinics Does the patient have Congenital Heart Disease?: Does patient require sedation?: Sedation rationale: XR Chest PA & Lateral (Generic) [49218 49748 Custom] 03/26/2024 09/25/2024 Process Instructions: Scheduling Instructions: Questions: Portable exam?: Reason for exam and clinical history: s/p avr/cabg Clinical information / jerome questions for radiologist: Stat read required?: Date of injury if applicable: Requested Time: Where will study be performed?: [facility] Radiology Referral to Cardiac Rehab [CGV953 Custom] As directed Process Instructions: If no [...] to Home Health. [address] Phone Number: Date of : 1960 Inpatient DOCUMENTATION FOR VNA SERVICES (INCLUDING THOSE PATIENTS WITH MEDICARE COVERAGE REQUIRING HOME VNA SERVICES AND/OR HOSPICE SERVICES) PATIENT'S LOCATION: Karlos Garcia [address] [employer] [phone] Wrong Address Clerk's Name: self/family In discussion with the attending physician, it is certified that this patient is under their care and that they, or a Nurse Practitioner, or Physician Operations Manager Assistant who is working directly with them, [...] services as follows: HOME HEALTH AGENCY: [facility] [address] [place] [id number] RN orders: Cardiopulmonary assessment, incisional assessment, assess [...] issues please call the Cardiology Office at [phone] FOR MEDICARE ONLY: (please delete this section [...] As above. Signed: NEFTALI MENON PA-C [facility] Section of Cardiac Surgery [facility] [place] [phone] FAX [phone] Date: 02/24/2024 CC: Aparna Jordan, MAURI Jordan, Aparna Sherman APRN [address] [place] [address] documented in this encounter Discharge Instructions * [...] Graham and/or the Cardiac Surgery Physician Operations Manager Assistant Team may be reached at . [...] Dr. Hayder Graham. You may use a [place] Track or treadmill but avoid any pulling [...] while being managed by your PCP and/or Exhibit Cleaner. For future medication refills, please refer to your PCP and/or Exhibit Cleaner after your discharge from our service. Thank you REMOVE CHEST TUBE SUTURES ON OR AFTER 03/02/24 Home oxygen therapy: N/A Follow up appointments: You should follow up with your PCP, Aparna Jordan APRN, in 1-2 weeks. Our office will schedule an appointment with your Exhibit Cleaner, Neftali Ernandez MD , in 2 weeks. [...] 0600 and on the weekends please page [phone]. * Eric Barahona PA - 02/23/2024 9:27 [...] 0600 and on the weekends please page [phone]. * Tiffanie Owens, TOMB MAKER HELPER - 02/22/2024 2:48 PM EDT Physical Therapy [...] d/c for 10 days. 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 He works Precautions/Special Considerations: STERNAL [...] LRAD and supervision Time IN / OUT: 8245-6255 Total Time: 30 minutes; TEFx2 Tiffanie Owens Pager: [phone] Physical Therapy Inpatient Rehabilitation Department * Romeo [...] 0600 and on the weekends please page [phone]. * Kelley Hinson TOMB MAKER HELPER - 02/21/2024 10:15 AM EDT Physical Therapy [...] d/c for 10 days. 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 He works Precautions/Special Considerations: STERNAL [...] LRAD and supervision Time IN / OUT: 3655-0191 Total Time: 25 minutes; TEF 2 Kelley Hinson PTA Pager: [phone] Physical Therapy Inpatient Rehabilitation Department * Louisa [...] 0600 and on the weekends please page [phone]. * Kelley Hinson PTA - 02/20/2024 3:32 [...] at that time Kelley Hinson PTA Pager: [phone] Physical Therapy Inpatient Rehab Department * Louisa [...] 0600 and on the weekends please page [phone]. * Maris Benavides, PT - 02/19/2024 11:22 [...] d/c for 10 days. 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 He works. Precautions/Special Considerations: STERNAL [...] outlined inthis evaluation. MARIS BENAVIDES, PT Pager: [phone] Physical Therapy Inpatient Rehabilitation Department Time IN / OUT: 6148-3274 Total Time: 38 (eval) minutes; * Antonio [...] 0600 and on the weekends please page [phone]. * Minnie Begum PA - 02/18/2024 8:25 [...] 0600 and on the weekends please page [phone]. * Kim Ha RCP - 02/17/2024 2:25 [...] plan since last visit. Hayder Graham MD [phone] Source Note - Hayder Graham MD - [...] given written informed consent. Hayder Graham MD [phone] * Hayder Graham MD - 02/17/2024 7:00 [...] given written informed consent. Hayder Graham MD [phone] documented in this encounter Miscellaneous Notes * [...] for follow-up Home Health & Hospice, [address] [place] [address] Cardiac Rehab, [address] [place] [address] Transportation: family or friend will provide Functional status prior to admission: Independent Home Environment: Others in the home: alone. Current Living Arrangements: home/apartment/condo. Accessibility Concerns:a few steps to enter 1 floor home. Current Functional Ability: Assistive Person and Equipment DME used at home: none DME Needed at Discharge: N/A Patient is insured through: Primary Insurance: [employer] Payor: [facility] / Plan: [facility] PPO / Product Type: *No [...] pain managed with scheduled Tylenol. Worked with [employer]. Ambulated in the roque multiple times during [...] anticipated Patient is insured through: Primary Insurance: [facility] Payor: [facility] / Plan: [facility] PPO / Product Type: *No [...] Physical Therapy, Registered Nurse Agency Referrals: [facility] [address] [place] [address] Transportation: family or friend will provide Barriers to discharge: Discharge planning Plan going forward: Service Care Management will continue to follow and assist with discharge planning and coordination of care as indicated. Anticipated Date of Discharge: 02/22/2024 Rhett Bell RN RN/CM - Cellphone: [phone] Pager: [phone] Covering Service RN/CM * Plan of Care [...] Yang RN - 02/19/2024 10:44 AM EDT [facility] CARDIAC REHABILITATION Karlos Garcia was seen today [...] Hypertension 08/14/2023 Nevus of face 09/26/2023 Right anabaptist Hospitalizations Within the Past 30 Days: no previous admission in last 30 days Current Decision-Making Capacity: Self If AD's have not been completed the following surrogate would be surrogate decision maker per [place] surrogate decision making law. (Only good for 180 days) Any patient receiving care in [place] must abide by [place] law. The hierarchy for surrogate decision making [...] (i) The agent with financial power of music coordinator or a conservator appointed in accordance with [...] In the past 12 months has the [employer], gas, oil, or water [facility] threatened to shut off services in your [...] [address] [facility] [address] Physical address: [address] [facility], [address] Social & Family Supports: All names listed [...] Information: none noted Health/Prescription Coverage: Primary Insurance: [facility] Payor: [facility] / Plan: [facility] PPO / Product Type: *No Product type* / Secondary Insurance: N/A ; Prescription Coverage: Yes Preferred Pharmacy: [id number] [address] [place] Status: Patient is a : No Primary Care Provider confirmed: Aparna Jordan, MAURI [phone] Patient/Caregiver Goals of Treatment: dc to home Potential Needs for Transition of Care: home health care Agency Referrals: I have met with the patient to: discuss discharge planning needs. provide the [facility], Office of Care Management letter from the [employer] pertaining to rehab referrals. provide a letter describing our affiliations within the [facility] and educate about their right to choose where referrals are sent. provide a list of Home Health Agencies / Durable Medical Equipment vendors which serve their preferred geographic area. provided patient with [facility] Star Quality Rating handout. They have requested referrals to: [facility] [address] [place] [address] Note routed to a Companion who will communicate referrals to facilities and [...] Reina Greene RN CM, BSN, CMGT-BC Ext [phone] * Plan of Care - Binta Trinidad [...] Operative Note Patient Name: Karlos Garcia : [id number] MR#: [id number] Case Date: 02/17/2024 Surgeon: Surgeon(s) and Role: * Hayder Graham MD - Primary * Neftali Menon PA - Physician Operations Manager Assistant Preoperative diagnosis: CAD Postoperative diagnosis: CAD, [...] mL Drains: Mediastinal and Left pleural Disposition: [facility] Condition: doing well without problems Attestation: Case Date: 02/17/2024 I performed this procedure without the involvement of a resident. HAYDER GRAHAM MD 02/17/2024 * Op Note - Hayder Graham MD - 02/17/2024 8:20 AM EDT [facility] Operative Note Patient Name: Karlos Garcia : [id number] MR#: [id number] Case Date: 02/17/2024 Surgeon: Surgeons and Role: * Hayder Graham MD - Primary * Neftali Menon PA - Physician Operations Manager Assistant Preoperative diagnosis: CAD Postoperative diagnosis: CAD, [...] mL Drains: Mediastinal and Left pleural Disposition: [facility] Procedure Description: The patient was brought [...] Aortic Valve Open W Cardiopulmonary Bypass Homogrf/Stent (39927) Yes 02/17/2024 7:28 AM EDT CAD Cabg, Artery-Vein, Two (05423) Yes 02/17/2024 7:28 AM EDT CAD Cabg, Arterial, Single (46817) Yes 02/17/2024 7:28 AM EDT CAD Endoscopy W/Video-Asst Vein [place], Cabg (30411) Yes 02/17/2024 7:28 AM EDT CAD POCT [...] CHEMISTRY ORDERABLE S [facility] [place] [address] * (ABNORMAL) Basic Metabolic Panel (non-fasting) (02/23/2024 [...] Carpio MD CHEMISTRY ORDERABLES Performing Organization Address [facility] Co de Phone Number [facility] [place] [address] * Potassium (02/22/2024 4:30 AM EDT) Potassium [...] Performing Organization Address [facility] Co de Phone Number [facility] [place] [address] * (ABNORMAL) Basic Metabolic Panel (non-fasting) (02/21/2024 [...] MD CHEMISTRY ORDERABLES [facility] [place] [address] * Lactate, whole blood, send to lab ([facility] (02/21/2024 9:45 AM EDT) Lactate WB 2.0 0.5 - 2.2 mmol/L [facility] Blood 02/21/2024 9:45 AM EDT 02/21/2024 9:52 AM EDT Narrative Resulting Agency Comment Spec In Lab Hayder Graham MD CHEMISTRY ORDERABLE S Performing Organization Address City/[facility]/ZIP Co de Phone Number [facility] [place] [address] * (ABNORMAL) Hepatic Function Panel (02/21/2024 9:45 [...] [facility]/ZIP Co de Phone Number [facility] [place] [address] * Lipase (02/21/2024 9:45 AM EDT) Pathologist [facility] Lipase 56 0 - 60 unit/L [facility] Blood 02/21/2024 9:45 AM EDT 02/21/2024 9:52 AM EDT Narrative Resulting Agency Comment Spec In Lab Hayder Graham MD CHEMISTRY ORDERABLE S Performing Organization Address [facility] Co de Phone Number [facility] [place] [address] * Amylase (02/21/2024 9:45 AM EDT) Amylase 69 28 - 100 unit/L [facility] Blood 02/21/2024 9:45 AM EDT 02/21/2024 9:52 AM EDT Narrative Resulting Agency Comment Spec In Lab Hayder Graham MD CHEMISTRY ORDERABLE S Performing Organization Address [facility] de Phone Number [facility] [place] [address] * Potassium (02/21/2024 3:08 AM EDT) Pathologist [facility] Potassium 3.8 3.5 - 5.0 mmol/L [facility] [...] Performing Organization Address [facility] Co de Phone Number [facility] [place] [address] * XR Chest PA & Lateral (Generic) (02/20/2024 10:19 AM EDT) WORKSTATION ID [id number] RAD Anatomical Region Laterality Modality Chest N/A Digital Radiogra phy Impressions 02/20/2024 1:11 PM EDT Small pleural effusions. No pneumothorax Thank you for letting us participate in the care of this patient. ??If you are a health care provider and have any questions regarding this report, please contact the number below. ??For patients who have questions please contact the health rn care transition that requested your imaging first. ? Electronically signed by: Rogerio Cruz MD, [facility] ??([phone]), at 02/20/2024 1:11 PM Narrative 02/20/2024 1:11 PM EDT EXAMINATION: XR CHEST PA AND LATERAL (GENERIC) CLINICAL HISTORY: s/p AVR/CABGx3 TECHNIQUE: PA and lateral views of the chest COMPARISON: 02/17/2024 FINDINGS: Support devices: Interval removal of [place] catheter, endotracheal tube and mediastinal chest tubes The cardiac silhouette is stable status post median sternotomy, CABG and aortic valve replacement. There are small pleural effusions. No pneumothorax. Procedure Note Rogerio Cruz MD - 02/20/2024 EXAMINATION: XR CHEST PA AND LATERAL (GENERIC) CLINICAL HISTORY: s/p AVR/CABGx3 TECHNIQUE: PA and lateral views of the chest COMPARISON: 02/17/2024 FINDINGS: Support devices: Interval removal of [place] catheter, endotracheal tubeand mediastinal chest tubes The [...] have questions please contactthe health rn care transition that requested your imaging first. Hayder Graham MD IMG DX ORDERABLES * Scan, Peripheral Blood (02/20/2024 4:23 AM EDT) Plat estimate Decreased [facility] RBC Morphology Normal [facility] Blood 02/20/2024 4:23 AM EDT 02/20/2024 4:42 AM EDT Narrative Resulting Agency Comment Spec In Lab Minnie FRENCH HEMATOLOGY CECILIO ALEMAN [facility] [place] [address] * (ABNORMAL) Differential, Automated (02/20/2024 4:23 AM EDT) Pathologist [facility] Neutrophil % 81.7 % [facility] Neutrophil Absolute 10.37(H) 1.70 - 6.10 x10(3)/mc L [facility] Lymph % 7.4 % [facility] Lymphocytes Abs 0.9 0.9 - 3.2 x10(3)/mc L [facility] Monocyte % 9.7 % [facility] Monocyte Abs 1.2(H) 0.3 - 0.9 x10(3)/mc L [facility] Eos % 0.1 % [facility] Eosinophils Abs 0.0 0.0 - 0.4 x10(3)/mc L [facility] Basophil % 0.2 % [facility] [...] HEMATOLOGY CECILIO ALEMAN [facility] [place] [address] * (ABNORMAL) Hemogram (02/20/2024 4:23 AM EDT) White Blood Cell 12.7(H) 4.0 - 9.5 x10(3)/[facility] Red Blood Cell 4.26(L) 4.58 - 5.54 x10(6)/[facility] Hemoglobin 12.3(L) 13.7 - 16.5 g/dL [facility] Hematocrit 37.1(L) 40.5 - 48.5 % [facility] Mean Cell Volume 87.1 82.9 - 93.1 [facility] Mean Cell Hemoglobin 28.9 27.5 - 32.1 pg [facility] Mean Cell Hemoglobin Concentration 33.2 32.0 - 35.7 g/dL [facility] Platelet 88(L) 145 - 357 x10(3)/[facility] RDW Standard Deviation 43.5 36.0 - 45.0 [facility] RDW coefficient of variation 13.7 11.4 - 13.8 % [facility] Mean Platelet Volume 10.2 7.6 - 12.9 [facility] NRBC% auto 0.0 % [facility] NRBC Absolute 0.000 0.000 - 0.000 x10(3)/ L [facility] Blood 02/20/2024 4:23 AM EDT 02/20/2024 4:42 AM EDT Narrative Resulting Agency Comment Spec In Lab Minnie FRENCH HEMATOLOGY CECILIO ALEMAN [facility] [place] [address] * (ABNORMAL) Basic Metabolic Panel (non-fasting) (02/20/2024 [...] [facility]/ZIP Co de Phone Number [facility] [place] [address] * Potassium (02/19/2024 3:57 AM EDT) Potassium [...] Performing Organization Address [facility] Co de Phone Number [facility] [place] [address] * POCT Glucose (02/18/2024 8:24 AM EDT) Glucose, POC 157 65 - 199 mg/dL [facility] Comment: Supplemental ranges: <140 mg/dL before meals <180 mg/dL all other times of the day Blood 02/18/2024 8:24 AM EDT 02/18/2024 8:24 AM EDT Hayder Graham MD POINT OF CARE TEST ORDERABLES Performing Organization Address [facility]/ZIP Co de Phone Number [facility] [place] [address] * Scan, Peripheral Blood (02/18/2024 1:40 AM EDT) Plat estimate Decreased [facility] RBC Morphology Normal [facility] Blood 02/18/2024 1:40 AM EDT 02/18/2024 1:56 AM EDT Narrative Resulting Agency Comment Spec In Lab Neftali FRENCH HEMATOLOGY ORDER OLE [facility] [place] [address] * (ABNORMAL) Differential, Automated (02/18/2024 1:40 AM EDT) Neutrophil % 87.1 % [facility] Neutrophil Absolute 15.03(H) 1.70 - 6.10 x10(3)/mc L [facility] Lymph % 3.0 % [facility] Lymphocytes Abs 0.5(L) 0.9 - 3.2 x10(3)/mc L [facility] Monocyte % 9.1 % [facility] Monocyte Abs 1.6(H) 0.3 - 0.9 x10(3)/mc L [facility] Eos % 0.0 % [facility] Eosinophils Abs 0.0 0.0 - 0.4 x10(3)/mc L [facility] Basophil % 0.2 % [facility] [...] HEMATOLOGY ORDER OLE [facility] [place] [address] * (ABNORMAL) Hemogram (02/18/2024 1:40 AM EDT) [...] MEDICAL CENTER [facility] NRBC% auto 0.0 % [facility] NRBC Absolute 0.000 0.000 - 0.000 x10(3)/mc L [facility] Blood 02/18/2024 1:40 AM EDT 02/18/2024 1:56 AM EDT Narrative Resulting Agency Comment Spec In Lab Neftali FRENCH HEMATOLOGY ORDER OLE [facility] [place] [address] * (ABNORMAL) Basic Metabolic Panel (non-fasting) (02/18/2024 [...] CHEMISTRY ORDERABLE S [facility] [place] [address] * (ABNORMAL) Troponin (02/18/2024 1:40 AM EDT) [...] can be found in the [facility] Test Catalog Troponin - [facility] Test Catalog Reference: Fourth Gordon Definition of Myocardial Infarction. Journal of the [employer] College [employer] 2018;72:5452-1753 Blood 02/18/2024 1:40 AM EDT 02/18/2024 1:56 AM EDT Narrative Resulting Agency Comment Spec In Lab Hayder Graham MD CHEMISTRY ORDERABLE S [facility] [place] [address] * POCT Glucose (02/17/2024 8:13 PM EDT) Glucose, POC 142 65 - 199 mg/dL [facility] Comment: Supplemental ranges: <140 mg/dL before meals <180 mg/dL all other times of the day Blood 02/17/2024 8:13 PM EDT 02/17/2024 8:13 PM EDT Hayder Graham MD POINT OF CARE TEST ORDERABLES Performing Organization Address [facility] Co de Phone Number [facility] [place] [address] * POCT Glucose (02/17/2024 5:42 PM EDT) Glucose, POC 160 65 - 199 mg/dL [facility] Comment: Supplemental ranges: <140 mg/dL before meals <180 mg/dL all other times of the day Blood 02/17/2024 5:42 PM EDT 02/17/2024 5:42 PM EDT Hayder Graham MD POINT OF CARE TEST ORDERABLES Performing Organization Address [facility] Co de Phone Number [facility] [place] [address] * Hemoglobin (02/17/2024 5:42 PM EDT) [facility] Signature Hemoglobin 13.7 13.7 - 16.5 g/dL [facility] Blood 02/17/2024 5:42 PM EDT 02/17/2024 6:10 PM EDT Narrative Resulting Agency Comment Spec In Lab Hayder Graham MD HEMATOLOGY ORDERABL ES Performing Organization Address [facility] Co de Phone Number [facility] [place] [address] * Potassium (02/17/2024 5:42 PM EDT) [facility] Signature Potassium 4.3 3.5 - 5.0 [...] CHEMISTRY ORDERABLE S [facility] [place] [address] * (ABNORMAL) BLOOD GAS 2 ARTERIAL (02/17/2024 [...] [facility] PF Ratio Art 195 [facility] Blood 02/17/2024 4:18 PM EDT 02/17/2024 4:18 PM EDT Hayder Graham MD POINT OF CARE TEST ORDERABLES [facility] [place] [address] * XR Chest One View (02/17/2024 1:44 PM EDT) [employer] WORKSTATION ID [id number] DH RAD Anatomical Region Laterality Modality Chest N/A Digital Radiogra phy Impressions 02/17/2024 2:12 PM EDT 1. ??No definite pleural fluid collection or pneumothorax. 2. ??Right IJ [place]-Kaila catheter tip terminates in a descending branch [...] questions please contact the health rn care transition that requested your imaging first. ? Electronically signed by: Denzel Hankins MD, [facility] ??([phone]), at 02/17/2024 2:12 PM Narrative 02/17/2024 2:12 PM EDT EXAMINATION: XR CHEST ONE VIEW CLINICAL HISTORY: s/p avr/cabg eval effusions TECHNIQUE: 1 view of the chest COMPARISON: Chest x-ray 01/09/2024, chest CT 02/03/2024 FINDINGS: ET tube tip terminates 5.2 cm above the carlos. Right IJ [place]-Kaila catheter tip terminates in a descending branch [...] 5.2 cm above the carlos. Right IJ [place]-Ganzcatheter tip terminates in a descending branch of [...] fluid collection or pneumothorax. 2. Right IJ [place]aila catheter tip terminates in a descending branch ofthe right pulmonary artery. Suggest catheter retraction. 3. Additional support lines and tubes as above. Thank you for letting us participate in the care of this patient. If youare a health care provider and have any questions regarding this report,please contact the number below. For patients who have questions please contactthe health rn care transition that requested your imaging first. Electronically signed by: Denzel Hankins MD, [facility]([phone]), at 02/17/2024 2:12 PM Hayder Graham MD [...] [facility] PF Ratio Art 320 [facility] Blood 02/17/2024 1:31 PM EDT 02/17/2024 1:31 PM EDT Hayder Graham MD POINT OF CARE TEST ORDERABLES [facility] [place] [address] * (ABNORMAL) Coox2 (02/17/2024 1:21 PM EDT) [...] OF CARE TEST ORDERABLES Performing Organization Address City/[facility]/ZIP Co de Phone Number [facility] [place] [address] * (ABNORMAL) BLOOD GAS 2 ARTERIAL (02/17/2024 [...] OF CARE TEST ORDERABLES Performing Organization Address [facility] Co de Phone Number [facility] [place] [address] * (ABNORMAL) Fibrinogen (02/17/2024 12:10 PM EDT) [...] MD HEMATOLOGY ORDERABLE S Performing Organization Address [facility] Co de Phone Number [facility] [place] [address] * (ABNORMAL) Thrombin time (02/17/2024 12:10 PM [...] MD HEMATOLOGY ORDERABLE S Performing Organization Address [facility] Co de Phone Number [facility] [place] [address] * APTT (02/17/2024 12:10 PM EDT) Partial [...] MD HEMATOLOGY ORDERABLE S Performing Organization Address [facility] Co de Phone Number [facility] [place] [address] * (ABNORMAL) Prothrombin Time (02/17/2024 12:10 PM [...] HEMATOLOGY ORDERABLE S [facility] [place] [address] * (ABNORMAL) Hemogram (02/17/2024 12:10 PM EDT) [...] [facility] NRBC% auto 0.0 % [facility] NRBC Absolute 0.000 0.000 - 0.000 x10(3)/mc L [facility] Blood 02/17/2024 12:1 0 PM EDT 02/17/2024 12:19 PM EDT Narrative Resulting Agency Comment Spec In Lab Tara York MD HEMATOLOGY ORDERABLE S [facility] [place] [address] * (ABNORMAL) BLOOD GAS 2 ARTERIAL (02/17/2024 [...] [facility] Comment: Noted by instrument repair specialist. Please note: Patients with WBC >100,000 [...] CARE TEST ORDERABLES [facility] [address] [place] [address] * (ABNORMAL) BLOOD GAS 2 ARTERIAL (02/17/2024 [...] [facility] Comment: Noted by instrument repair specialist. Please note: Patients with WBC >100,000 [...] OF CARE TEST ORDERABLES Performing Organization Address [facility] de Phone Number [facility] [place] [address] * (ABNORMAL) Hemoglobin and Hematocrit, blood (02/17/2024 [...] Performing Organization Address [facility] de Phone Number [facility] [place] [address] * (ABNORMAL) Platelet count (02/17/2024 11:04 AM EDT) Platelet 106(L) 145 - 357 x10(3)/mc L [facility] Immature Plt % 1.6 0.0 - 7.4 % [facility] Comment: Limitation of the Immature Platelet Fraction (IPF)-May be less reliable when the platelet count is less than 96j628/uL due to statistical imprecision. The IPF value [...] in a decreased state of production. References: [employer] The Clinical Value of the Immature Platelet Fraction (IPF) in Cell Recovery Document Number 10-1143 03/2011 [employer] The Role of the Immature Platelet Fraction (IPF) in the Differential Diagnosis of Thrombocytopenia, Document MKT-[id number] V002/15/14 Blood 02/17/2024 11:0 4 AM EDT 02/17/2024 11:12 AM EDT Narrative Resulting Agency Comment Spec In Lab Hayder Graham MD HEMATOLOGY ORDERABL ES Performing Organization Address City/[facility]/ZIP Co de Phone Number [facility] [place] [address] * (ABNORMAL) Fibrinogen (02/17/2024 11:04 AM EDT) [...] [facility]ZIP Co de Phone Number [facility] [place] [address] * (ABNORMAL) BLOOD GAS 2 ARTERIAL (02/17/2024 [...] TEST ORDERABLES [facility] [place] [address] * (ABNORMAL) BLOOD GAS 2 ARTERIAL (02/17/2024 [...] de Phone Number [facility] [place] [place] [address] * Surgical Pathology Report (02/17/2024 10:01 AM EDT) Final Diagnosis [id number] ? Location: [facility]; [facility]; The signing pathologist has (i) examined the relevant preparation(s) for the specimen(s) and (ii) rendered or confirmed the diagnosis(es). . ?Surgical Pathology DIAGNOSIS Aortic valve leaflets, excision: Valve leaflets with myxoid degeneration, nodular fibrosis and dystrophic calcifications. Electronically signed by: ?Lindsay FERNANDEZ, Livier Gonzalez Verified: ??02/24/2024 13:49 ??Pathologist Performed at: ??-[facility] Dept. of Pathology, [place] [address] Crotch Piece Baster: Job Brewer MD, FCAP, ??CLIA Certificate: [id number] SPECIMEN(S) SUBMITTED A - Aortic Valve Leaflets, [...] Sections Processing Blocks submitted for decalcification: A1. Manager Outpatient sections in 1 cassette labeled A1. ??ajw 02/24/2024 1:49 PM EDT [facility] AORTIC STRUCTURE / Unknown 02/17/2024 10:01 AM EDT 02/17/2024 10:01 AM EDT Hayder Graham MD PATHOLOGY/[place] [address] * Specimen to Pathology (02/17/2024 10:01 AM EDT) AP Specimen 02/17/2024 10:0 1 AM EDT 02/17/2024 10:01 AM EDT Narrative [facility] - 02/17/2024 10:01 AM EDT Specimen requisition ordered. ??Separate Pathology report to follow Hayder Graham MD PATHOLOGY/CYTOLOGY ORDERABLES [facility] [place] [address] * (ABNORMAL) BLOOD GAS 2 ARTERIAL (02/17/2024 [...] CARE TEST ORDERABLES [facility] [place] [address] * (ABNORMAL) BLOOD GAS 2 VENOUS (02/17/2024 9:34 AM EDT) pH, Venous 7.22(Criti marquez) 7.32 - 7.42 [facility] Comment:Noted by instrument repair specialist. PCO2, Venous 43 41 - 51 mmHg [facility] Comment:Noted by instrument repair specialist. PO2, Venous 57(H) 25 - 40 mmHg [facility] Comment:Noted by instrument repair specialist. Bicarbonate, Venous 17.1 mmol/L [facility] Comment:Noted by instrument repair specialist. Base Excess, Venous -10.6 mmol/L [facility] Comment:Noted by instrument repair specialist. Hgb Blood Gas 11.2(L) 13.7 - 16.5 g/dL [facility] Comment:Noted by instrument repair specialist. Oxyhemoglobin, Venous 86.5 % [facility] Comment:Noted by instrument repair specialist. Carboxyhemoglob in, Venous 0.3 % [facility] Comment: Noted by instrument repair specialist. Nonsmokers: 0.5-1.5% COHB Smokers: Variable, but usually less than 10% Toxic: 20-30% COHB Lethal: Greater than 60% COHB Methemoglobin, Venous 0.0 <=1.5 % [facility] Comment:Noted by instrument repair specialist. Na Whole Blood 156(H) 135 - 145 mmol/L [facility] Comment:Noted by instrument repair specialist. K Whole Blood 5.5(H) 3.5 - 5.0 mmol/L [facility] Comment: Noted by instrument repair specialist. Please note: Patients with WBC >100,000 may have falsely elevated Potassium levels. Contact the Clinical Chemistry Laboratory if there are any questions. ICa Whole Blood 1.03(L) 1.15 - 1.33 mmol/L [facility] Comment: Noted by instrument repair specialist. Note: ??Total bilirubin higher than 20 mg/dL may lead to falsely low ionized calcium. CL Whole Blood 100 98 - 107 mmol/L [facility] Comment:Noted by instrument repair specialist. Gluc Whole Bld 132 65 - 199 mg/dL [facility] Comment: Noted by instrument repair specialist. Diabetes: >=200 mg/dL plus symptoms Lactate WB 1.0 0.5 - 2.2 mmol/L [facility] Comment:Noted by instrument repair specialist. Blood Gas Source Venous [facility] Blood 02/17/2024 9:34 AM EDT 02/17/2024 9:34 AM EDT Hayder Graham MD POINT OF CARE TEST ORDERABLES [facility] [place] [address] * (ABNORMAL) BLOOD GAS 2 ARTERIAL (02/17/2024 [...] OF CARE TEST ORDERABLES Performing Organization Address City/[facility]/ZIP Co de Phone Number [facility] [place] [address] * POCT Glucose (02/17/2024 6:38 AM EDT) Glucose, POC 98 65 - 199 mg/dL [facility] Comment: Supplemental ranges: <140 mg/dL before meals <180 mg/dL all other times of the day Blood 02/17/2024 6:38 AM EDT 02/17/2024 6:38 AM EDT Hayder Graham MD POINT OF CARE TEST ORDERABLES Performing Organization Address [facility] Co de Phone Number [facility] [place] [address] * Transesophageal Echo/OR (02/17/2024 6:33 AM EDT) [...] complete [facility] and post-operative evaluation of cardiac function [...] Routine 08 (Patch Applied - Provider: Reilly Vincnet RN)2021 (Patch Removed - Provider: Polo Britton [...] SBP<90, Routine 2056 (Given - Provider: Polo Britotn RN) pantoprazole EC (Protonix) tablet 40 mg(Linked [...] Routine documented in this encounter Care Teams Freight Hustler Relationship Specialty Start Date End Date Aparna Jordan APRN PCP - General Family Medicine 10/21/23 05/26/24 documented as of this encounter
--- OUTSIDE RECORDS SUMMARY | 2024-10-01 09:58 | XMS_ITS | Encounter Summary ---
Author Organization [facility] [place] [address] Care Team Providers Care Manager Maintenance Name Role Phone Vanessa Christian APRN Primary Care Provider [phone] Encounter Details Date Type Department Care Team [...] filedocumented in this encounter Care Teams Manager Maintenance Relationship Specialty Start Date End Date Vanessa Christian APRN PCP - General Family Medicine 10/21/23 05/26/24 documented as of this encounter
--- OUTSIDE RECORDS SUMMARY | 2024-10-01 09:58 | XMS_ITS | Encounter Summary ---
Author Organization [facility] [place] [address] Care Team Providers Care Cardiovascular Sonographer Name Role Phone Vanessa Christian Lane DOTSON Primary Care Provider [phone] Encounter Details Date Type Department Care Team (Late st Contact Info) Description 01/09/2024 2:30 PM EDT Clinical Support Same Day at [facility] [place] [id number] Social History Tobacco Use Types Packs/Day Years [...] you tube link for a video about [facility] cardiac surgery. Instructed to bring the booklet [...] type and screen performed while in the [facility]. Sent to Radiology for chest x-ray. Special medication instructions: None Procedure date: not booked. Darian documented in this encounter Plan of Treatment Not on file documented as of this encounter Visit Diagnoses Not on filedocumented in this encounter Care Teams Cardiovascular Sonographer Relationship Specialty Start Date End Date Vanessa Christian APRN PCP - General Family Medicine 10/21/23 05/26/24 documented as of this encounter
--- OUTSIDE RECORDS SUMMARY | 2024-10-01 09:59 | XMS_ITS | Encounter Summary ---
Author Organization Count Includes [facility] Address [facility] Ivana linareseileen [place] [id number] Care Team Providers Care Customer Success Specialist Name Role Phone Vanessa Christian MAURI Primary Care Provider [phone] Reason for Referral * Consultation (Routine) - Closed Specialty Diagnoses / Procedures Referred By Contac t Referred To Contact Cardiac Surgery Diagnoses Nonrheumatic aortic valve stenosis significant - TAVR ( defers to Card Surg d/t age) Errol Loya MD [facility] [place] [address] Zak Farmer MD [facility] [place] [address] Referral ID Status Reason Start Date Expiration Date V isits Requested Visits Authorized [id number] Closed Consult, Test & Treat 10/21/2023 10/20/2024 1 1 Reason for Visit * Reason Comments Chest Pain Shortness of Breath Aortic Stenosis Encounter Details Date Type Department Care Team (Late st Contact Info) Description 10/21/2023 1:20 PM EST Office Visit Cardiology at [address] [phone] Errol Loya MD [facility] [place] [address] Nonrheumatic aortic valve stenosis Social History Tobacco [...] Problem List Diagnosis Aortic stenosis 12/2022 TTE ([facility]): VITA 0.8-0.9 cm2 (MG 28 mmHg, [...] the meantime will refer to T at [facility] for further [...] the meantime will refer to T at [facility] for further [...] disorders documented in this encounter Care Teams Customer Success Specialist Relationship Specialty Start Date End Date Vanessa Christian APRN PCP - General Family Medicine 10/21/23 05/26/24 documented as of this encounter
--- OUTSIDE RECORDS SUMMARY | 2024-10-01 09:59 | XMS_ITS | Encounter Summary ---
Author Organization [facility] [place] [address] Care Team Providers Care Hospital Monitor Name Role Phone Vanessa Christian APRN Primary Care Provider [phone] Encounter Details Date Type Department Care Team (Late st Contact Info) Description 12/26/2023 Notes Only Cardiology at [address] [place] [address] Neftali Ernandez MD [facility] [place] [address] Social History Tobacco Use Types Packs/Day Years [...] images reviewed from [facility]. Indeed, the aortic valve appears severely stenotic. Cannotrule out bicuspid valve documented in this encounter Plan of Treatment Not on file documented as of this encounter Visit Diagnoses Not on filedocumented in this encounter Care Teams Hospital Monitor Relationship Specialty Start Date End Date Vanessa Christian APRN PCP - General Family Medicine 10/21/23 05/26/24 documented as of this encounter
--- OUTSIDE RECORDS SUMMARY | 2024-10-01 09:59 | XMS_ITS | Data Portability ---
Author Organization [place] - [facility] Address [address] [place] [address] Care Team Providers Care Infantry Assaultman Name Role Phone APARNA JORDAN Primary Care Provider [phone] SOFIA MCALLISTER Dentist Assessment No assessment recorded. Plan of Treatment Reminders Order Date Submit Date Provider Last Modified By Organization Details Last Modified Time Details Appointments None recorded . Lab magnesiu m, serum or plasma 024 12/18/19 24 [email or web address] [facility] (Registration ), [address] [place] [address] [place], [address], 4 14:25:25 BMP, serum or plasma 024 12/18/19 24 [facility] (Registration ), [address] [place] [address] [place], [address], 4 14:25:24 Referral None recorded . Procedures None recorded . Surgeries None recorded . Imaging None recorded . Medication Orders None recorded . Patient TargetsNo targets recorded. Patient Instructions Encounter Date Encounter Id Patient Instructions Last Modified By Organization Details Last Modified Time 09/19/2023 [id number] SCHEDULE FOLLOW UP IN 3 MONTHS IF YOU DONT HEAR FROM THE CARDIOLOGY DEPT THIS WEEK CALL [facility] SENIOUR INSIGHT MANAGER AND LET THEM KNOW IF YOUR BREATHING GETS WORSE- GO TO THE ER, DONT OVER DO THINGS PHYSICALLY EXPECT A CALL FROM SARA ZAFAR RE: UPDATING YOUR POWER OF COMPLIANCE INVESTIGATOR (NEED 2 WITNESSED SIGNATURES) Not available 09/19/2023 09:25:07 12/18/2023 [id number] Karlos: expect a call from the STructural heart team at [facility] drink at least 6 glasses of water [...] 9.3 mg/dL 8.5-10 .1 normal Not Available [address] [place], [address] 12/18/2023 17:09:55 12/18/19 24 12/18/2023 LASIC METAB OLIC PANEL glucose 90 mg/dL 74-106 normal Not Available Baljit montemayor [address] [place], [address] 12/18/2023 17:09:55 12/18/19 24 12/18/2023 LASIC METAB OLIC PANEL BUN 14 mg/dL 7-18 normal Not Available Baljit montemayor [address] [place], [address] 12/18/2023 17:09:55 12/18/19 24 12/18/2023 LASIC METAB OLIC PANEL creatinine 1.0 mg/dL 0.70-1 .30 normal Not Available [address] [place], [address] 12/18/2023 17:09:55 12/18/19 24 12/18/2023 LASIC METAB [...] young er-ag ed adult s. Not Available [address] [place], [address] 12/18/2023 17:09:55 12/18/19 24 12/18/2023 LASIC METAB OLIC PANEL sodium 139 mmol/ L 136-14 5 normal Not Available [address] [place], [address] 12/18/2023 17:09:55 12/18/19 24 12/18/2023 LASIC METAB OLIC PANEL potassium 4.9 mmol/ L 3.5-5. 1 normal Not Available [address] [place], [address] 12/18/2023 17:09:55 12/18/19 24 12/18/2023 LASIC METAB OLIC PANEL chloride 104 mmol/ L 98-107 normal Not Available [address] [place], [address] 12/18/2023 17:09:55 12/18/19 24 12/18/2023 LASIC METAB OLIC PANEL CO2 30.9 mmol/ L 21.0-3 2.0 normal Not Available [address] [place], [address] 12/18/2023 17:09:55 12/18/19 24 12/18/2023 LASIC METAB OLIC PANEL anion gap 4.1 mmol/ L 3-11 normal Not Available [address] [place], [address] 12/18/2023 17:09:55 12/18/19 24 12/18/2023 MAGNE SIUM magnesium 1.8 mg/dL 1.8-2. 4 normal Not Available [address] [place], [address] 12/18/2023 17:09:56 07/27/20 24 07/27/2024 LIPID 2 cholesterol 131 mg/dL <200 Not Available [address] [place], [address] 07/27/2024 11:59:38 07/27/20 24 07/27/2024 LIPID 2 triglyceride 162 mg/dL <150 high Not Available [address] [place], [address] 07/27/2024 11:59:38 07/27/2007/27/2024 LIPID 2 HDL cholesterol 35 mg/dL 40-60 low Not Available Dominique blackburn [address] [place], [address] 07/27/2024 11:59:38 07/27/2007/27/2024 LIPID 2 calculated LDL [...] 18 years or older . Not Available [address] [place], [address] 07/27/2024 11:59:38 07/27/2007/27/2024 COMPR EHENS MADYSON METAB OLIC PANEL calcium 9.2 mg/dL 8.5-10 .1 normal Not Available [address] [place], [address] 07/27/2024 11:59:38 07/27/2007/27/2024 COMPR EHENS MADYSON METAB OLIC PANEL glucose 83 mg/dL 74-106 normal Not Available Baljit montemayor [address] [place], [address] 07/27/2024 11:59:38 07/27/2007/27/2024 COMPR EHENS MADYSON METAB OLIC PANEL BUN 20 mg/dL 7-18 high Not Available Baljit montemayor [address] [place], [address] 07/27/2024 11:59:38 07/27/2007/27/2024 COMPR EHENS MADSYON METAB OLIC PANEL creatinine 1.0 mg/dL 0.70-1 .30 normal Not Available [address] [place], [address] 07/27/2024 11:59:38 07/27/2007/27/2024 COMPR EHENS MADYSON METAB [...] young er-ag ed adult s. Not Available [address] [place], [address] 07/27/2024 11:59:38 07/27/2007/27/2024 COMPR EHENS MADYSON METAB OLIC PANEL total protein 6.8 g/dL 6.4-8. 2 normal Not Available [address] [place], [address] 07/27/2024 11:59:38 07/27/2007/27/2024 COMPR EHENS MADYSON METAB OLIC PANEL albumin 3.5 g/dL 3.4-5. 0 normal Not Available [address] [place], [address] 07/27/2024 11:59:38 07/27/2007/27/2024 COMPR EHENS MADYSON METAB OLIC PANEL bilirubin, total 0.77 mg/dL 0.2-1. 0 normal Not Available [address] [place], [address] 07/27/2024 11:59:38 07/27/2007/27/2024 COMPR EHENS MADYSON METAB OLIC PANEL alk phos 84 U/L 46-116 normal Not Available [address] [place], [address] 07/27/2024 11:59:38 07/27/2007/27/2024 COMPR EHENS MADYSON METAB OLIC PANEL sodium 141 mmol/ L 136-14 5 normal Not Available [address] [place], [address] 07/27/2024 11:59:38 07/27/2007/27/2024 COMPR EHENS MADYSON METAB OLIC PANEL potassium 4.8 mmol/ L 3.5-5. 1 normal Not Available [address] [place], [address] 07/27/2024 11:59:38 07/27/2007/27/2024 COMPR EHENS MADYSON METAB OLIC PANEL chloride 105 mmol/ L 98-107 normal Not Available [address] [place], [address] 07/27/2024 11:59:38 07/27/2007/27/2024 COMPR EHENS MADYSON METAB OLIC PANEL CO2 30.9 mmol/ L 21.0-3 2.0 normal Not Available [address] [place], [address] 07/27/2024 11:59:38 07/27/2007/27/2024 COMPR EHENS MADYSON METAB OLIC PANEL anion gap 5.1 mmol/ L 3-11 normal Not Available [address] [place], [address] 07/27/2024 11:59:38 07/27/2007/27/2024 COMPR EHENS MADYSON METAB OLIC PANEL AST 20 U/L 15-37 normal Not Available Baljit montemayor [address] [place], [address] 07/27/2024 11:59:38 07/27/2007/27/2024 COMPR EHENS MADYSON METAB OLIC PANEL ALT 32 U/L 16-63 normal Not Available Baljit montemayor [address] [place], [address] 07/27/2024 11:59:38 07/27/2007/27/2024 CREAT INE KINAS E creatine kinase 133 U/L 39-308 normal Not Available [facility] [address] , [place], [address] 07/27/2024 11:48:30 09/11/2012/05/2022 trans -thor acic echoc ardio gram (TTE) (PROC ) No observ ation record ed. [email or web address] [facility] Xray [address] , [place], [address], 09/13/2023 09:29:52 09/11/20 23 06/01/2022 XR, hip, unila teral No observ ation record ed. [email or web address] Not Available 2022 09:29:19 09/11/2012/06/2019 , echoc ardio gram No observ ation record ed. [email or web address] [facility]- Cardiology [address] [place], [address], 09/13/2023 09:28:49 07/27/20 24 07/27/2024 x-ray imagi ng repor t Flor t Name: Kanu Hugo Unit #: [id number] Loc: DI Orderi ng Provid er: Dc Louis DO Accoun t #: [id number] Status : REG CLI Primar y Care Provid er: Danna Jordan COATING INSPECTOR Date of Exam: 07/08 10/30 Sex: M [...] Vascul ar calcif icatio n is noted pigment grinder iorly in the poplit eal artery . [...] INTERFACE [facility] [address], [place], [address] 07/27/2024 18:10:30 Result Notes None recorded. Problems Name Problem SNOMED Code Status Onset Date Resolution Date Notes Provider Name and Address Organization Details Recorded Time Gastroes ophageal reflux disease without esophagi tis 190613511 Active 2022 Problem Code: K21.9; Problem Code Type: ICD-10; Not Available [facility] 4 05:35:57 Glaucoma 47888548 Active 2022 Problem Code: H40.9; Problem Code Type: ICD-10; Not Available [facility] 4 05:35:57 Hyperlip idemia 17749489 Active 2022 Problem Code: E78.5; Problem Code Type: ICD-10; Not Available [facility] 4 05:35:57 [facility] hyperten marisol 59208220 Active 2022 Problem Code: I10; Problem Code Type: ICD-10; Not Available [facility] 4 05:35:57 Pain of left hip joint 61859264605 9100 Active 2022 Problem Code: M25.552; Problem Code Type: ICD-10; Not Available [facility] 4 05:35:57 Idiopath ic osteoart hritis 018333280 Active 2022 Problem Code: M16.12; Problem Code Type: ICD-10; Not Available [facility] 4 05:35:57 Inguinal hernia 375829040 Active 2022 Problem Code: K40.90; Problem Code Type: ICD-10; Not Available [facility] 4 05:35:57 Heart murmur 73433855 Active 2022 Problem Code: R01.1; Problem Code Type: ICD-10; Not Available [facility] 4 05:35:57 Dyspnea 549067044 Active 2022 Problem Code: R06.09; Problem Code Type: ICD-10; Not Available [facility] 4 05:35:57 Chest pain 18697830 Active 2022 Problem Code: R07.89; Problem Code Type: ICD-10; Not Available [facility] 4 05:35:57 Melanocy tic nevus 169745492 Active 2022 Problem Code: D22.9; Problem Code Type: ICD-10; Not Available [facility] 4 05:35:57 Aortic stenosis , non-rheu matic 603693037 Active 2022 Problem Code: I35.0; Problem Code Type: ICD-10; Not Available [facility] 4 05:35:58 Aortic stenosis , non-rheu matic 891842967 Completed 202208/14/2023 Problem Code: I35.0; Problem Code Type: ICD-10; Not Available [facility] 4 05:35:58 Indigest ion 015864007 Active 2023 GLORIA CAMP LPN null, [facility] 4 08:48:57 Coronary artery bypass grafts x 3 Active 2023 Kelly Duran RN null, [facility] 4 10:30:01 At increase d risk of atrial fibrilla tion 823149731 Active [address], [place], [address] , [facility] 4 13:52:01 Anemia 117865453 Active [address], [place], [address] , [facility] 4 13:54:39 Problem Notes None recorded. Procedures Surgical History Date Name Laterality Status Provider Name and Address Organization Details Recorded Time coronary artery bypass graft completed Hudson Reeder MA [facility] 03/04/2024 14:54:09 Imaging Results Imaging Date Name Status LastModified by Organization Details LastModified Time 12/05/2022 trans-thoracic echocardiogram (TTE) (PROC) completed [address] X[facility] [address] , [place], [address], 09/13/2023 09:29:52 06/01/2022 XR, hip, unilateral [place] [address] Information not available 09/13/2023 09:29:19 12/06/2019 US, echocardiogram completed [address]- Cardiology [address] [place] [address] [place], [address], 09/13/2023 09:28:49 07/27/2024 x-ray imaging report completed INTERFACE [address] [place], [address] 07/27/2024 18:10:30 Procedure Notes None recorded. Medical [...] es. Take 1 hr prior. Started by [facility]. Not Available Not Available Not Available doxycycli [...] BY MOUTH DAILY 02/24 completed stopped by [facility] Not Available Not Available Not Available brimonidi [...] hours by oral route as needed. active [facility] Not Available Not Available No t Available Aspirin Childrens 81 mg chewable tablet Take 1 tablet by mouth once a day active Not Available Not Available No t Available lisinopri l 5 mg tablet TAKE 1 TABLET BY MOUTH EVERY DAY 02/24 completed stopped by [facility] Not Available Not Available Not Available mupirocin [...] day by oral route. active started by [facility] Not Available Not Available Not Available dorzolami de 2 % (PF) eye drops 1 drop both eyes bid 12/17 completed Not Available Not Available Not Available Vitals Date Recorded Body weight Body mass index (BMI) Body height Heart rate Systolic blood pressure Diastolic blood pressure Provider Name and Address Organization Details Last Updated DateTime 3 38538.7 8 g 23.7 kg/m2 167.64 cm 64 /min 110 mm[Hg] 60 mm[Hg] GLORIA CAMP LPN [facility] 3 08:48:49 Date Recorded Body height Body mass index (BMI) Body weight Heart rate Systolic blood pressure Diastolic blood pressure Provider Name and Address Organization Details Last Updated DateTime 4 167.64 cm 24.6 kg/m2 62123.4 4 g 60 /min 112 mm[Hg] 80 mm[Hg] GLORIA CAMP LPN [facility] 4 08:38:13 Date Recorded Body height Body mass index (BMI) Body weight Heart rate Oxygen saturation Oxygen saturation in Arterial blood by Pulse oximetry Systolic blood pressure Diastolic blood pressure Provider Name and Address Organization Details Last Updated DateTime 4 167.64 cm 22.6 kg/m2 13376.6 5 g 63 /min 99 % 99 % 102 mm[Hg] 54 mm[Hg] Hudson Reeder MA [facility] 4 10:27:28 Social History Question Answer Notes LastModified by Organizat ion Details LastModified Time Tobacco Smoking Status Former Smoker Hudson Reeder MA null, [place] - [facility]. 03/06/2024 10:24:50 Do You Have An Advance Directive? Yes Registered 08/15/23 Updated 01/12/24 Information not available 01/15/2024 When Did You Quit Smoking? 11-15years sincelastc igarette [email or web address] Information not available 03/06/2024 Do You Have A Medical Power Of Adult Literacy Teacher? Yes Received 08/30/23, Scanned. Copies Sent To [facility] And Patient 09/02/23. Information not available 09/02/2023 What Was The Date Of Your Most Recent Tobacco Screening? 03/06/2024 [email or web address] Information not available 03/06/2024 What Is Your Current Pack Years? 30ormorepa ckyears [email or web address] Information not available 03/06/2024 How Much Tobacco Do You Smoke? 1 PPD [email or web address] Information not available 03/06/2024 How Many Years Have You Smoked Tobacco? 40 [email or web address] Information not available 03/06/2024 Do You Or Have You Ever Used Any Other Forms Of Tobacco Or Nicotine? No [email or web address] Information not available 03/06/2024 Sex: Male Functional [...] Recorded Time Tdap 3 completed Not Available [facility] 10/18/2023 05:30:17 Td(adult) unspecified formulation 3 completed Not Available [facility] 10/18/2023 05:30:17 COVID-19, mRNA, LNP-S, PF, 100 mcg/0.5mL dose or 50 mcg/0.25mL dose 1 completed Not Available [facility] 10/18/2023 05:30:18 COVID-19, mRNA, LNP-S, PF, 100 mcg/0.5mL dose or 50 mcg/0.25mL dose 1 completed Not Available [facility] 10/18/2023 05:30:18 COVID-19, mRNA, LNP-S, PF, 100 mcg/0.5mL dose or 50 mcg/0.25mL dose 1 completed Not Available [facility] 10/18/2023 05:30:18 influenza, unspecified formulation 1 completed Not Available [facility] 10/18/2023 05:30:18 influenza, unspecified formulation 2 completed Not Available [facility] 10/18/2023 05:30:18 influenza, unspecified formulation 0 completed Not Available [facility] 10/18/2023 05:30:18 influenza, unspecified formulation 9 completed Not Available [facility] 10/18/2023 05:30:18 influenza, unspecified formulation 8 completed Not Available [facility] 10/18/2023 05:30:18 Past Encounters Encounter ID Performer Location Encounter Start Date Encounter Closed Date Diagnosis/Indication Diagnosis SNOMED-CT Code Diagnosis ICD10 Code [id number] AMRITA PUENTE [address] [address] 09/19/2023 08:39:51 09/19/2023 09:17:42 Aortic valve stenosis 63699480 I35.0 Essential hypertension 06421441 I10 [id number] AMRITA PUENTE [address] [address] 12/18/2023 08:23:47 12/18/2023 09:29:09 Aortic stenosis, non-rheumatic 955141925 I35.0 Essential hypertension 91494956 I10 Nonulcer dyspepsia 01496 07 K30 Cramp in lower leg 64454 8009 R25.2 [id number] TATYANA LEDEZMA MD [address] [address] 03/06/2024 10:15:07 03/06/2024 11:14:28 Postoperative visit 625328970 Z48.89 Aortic rosa m nosis, non-rheumatic 013339011 I35.0 Stented co ronary artery 731740527 Z95.5 At [facility] risk of atrial fibrillation 155338791 Z91.89 Anemia 716499188 D64.9 Health Concerns Section Related Observation LastModified by Organization Detai ls LastModified Time None Recorded Concern Status LastModified by Organization Details LastModified Time None Recorded Advance Directives Directive Y: Registered 08/15/23Updated 01/12/24 Payers Encounter Date Sequence Insurance Name Policy Number Policy Alicia Covered Member ID Alicia Member ID Guarantor Name 12/18/2023 1 [facility] [id number] Karlos C Patenaude [id number] Karlos C Patenaude 03/06/2024 1 [employer] [id number] Karlos C Patenaude [id number] Karlos C Patenaude Notes Date Note Type Note Provider Name and Address Organization Details Recorded Time 09/19/2023 text/html 63-year-old man here for follow-up hypertension, severe aortic stenosis.,He works full-time at [employer]. He lives at home with his dog. He has not heard from [facility] cardiology? referred mid-August.He did decrease his [...] There is trivial to mild aortic insufficiency. APARNA JORDAN, AMRITA [address], [place], [address], [facility]. 09/19/2023 13:31:38 12/18/2023 text/html 63-year-old man here for follow-up hypertension, severe aortic stenosis.,He works full-time at [employer]. He lives at home with [...] repair a number of years ago at [facility], it is starting to cause some discomfort. Reports leg cramps at nighttime intermittently, improves when he has a Gatorade during the daytime and Ovaltine in his coffee. AMRITA PUENTE [address], [place], [address], [facility]. 12/18/2023 11:43:00 03/06/2024 text/html Karlos is here today for a postop evaluation TATYANA LEDEZMA MD [address], [place], [address], [facility]. 03/08/2024 13:57:34
--- OUTSIDE RECORDS SUMMARY | 2024-10-01 09:59 | XMS_ITS | Encounter Summary ---
Author Organization [facility] [place] [address] Care Team Providers Care Preparation Room Worker Name Role Phone Vanessa Christian APRN Primary Care Provider [phone] Encounter Details Date Type Department Care Team (Late st Contact Info) Description 10/21/2023 Abstract Cardiology at [address] [place] [id number] Adam Mayes RN Social History Tobacco Use [...] on filedocumented in this encounter Care Teams Preparation Room Worker Relationship Specialty Start Date End Date Vanessa Christian APRN PCP - General Family Medicine 10/21/23 05/26/24 documented as of this encounter
--- OUTSIDE RECORDS SUMMARY | 2024-10-01 09:59 | XMS_ITS | Encounter Summary ---
Author Organization [facility] [place] [address] Care Team Providers Care Vine Pruner Name Role Phone Vanessa Christian APRN Primary Care Provider [phone] Encounter Details Date Type Department Care Team [...] on filedocumented in this encounter Care Teams Vine Pruner Relationship Specialty Start Date End Date Vanessa Christian APRN PCP - General Family Medicine 10/21/23 05/26/24 documented as of this encounter
--- OUTSIDE RECORDS SUMMARY | 2024-10-01 09:59 | XMS_ITS | Encounter Summary ---
[place] [address] Care Team Providers Care Ice Resurfacing Machine Operators Name Role Phone Victor M Lafleur MD Primary Care Provider [phone] Reason for Visit * Reason Onset Date Comments Referral 09/20/2023 Encounter Details Date Type Department Care Team (Late st Contact Info) Description 09/20/2023 Telephone Cardiology at [address] [address] Karen Billy, fish hatchery man Social History Tobacco Use Types Packs/Day Years [...] on filedocumented in this encounter Care Teams Ice Resurfacing Machine Operators Relationship Specialty Start Date End Date Victor M Lafleur MD PCP - General 10/02/13 10/20/23 documented as of this encounter
--- OUTSIDE RECORDS SUMMARY | 2024-10-01 09:59 | XMS_ITS | Encounter Summary ---
Author Organization [facility] [place] [address] Care Team Providers Care Gear Shaper Name Role Phone Vanessa Christian APRN Primary Care Provider [phone] Encounter Details Date Type Department Care Team (Late st Contact Info) Description 10/21/2023 Abstract Cardiology at [address] [place] [address] Adam Mayes RN Social History Tobacco Use [...] filedocumented in this encounter Care Teams Gear Shaper Relationship Specialty Start Date End Date Vanessa Christian APRN PCP - General Family Medicine 10/21/23 05/26/24 documented as of this encounter
--- OUTSIDE RECORDS SUMMARY | 2024-10-01 09:59 | XMS_ITS | Encounter Summary ---
Author Organization [facility] [place] [address] Care Team Providers Care Waste Hand Name Role Phone Victor M Lafleur MD Primary Care Provider [phone] Encounter Details Date Type Department Care Team (Late st Contact Info) Description 09/26/2023 Abstract Cardiology at [address] [address] Karen Billy, RN Nonrheumatic aortic [...] face documented in this encounter Care Teams Waste Hand Relationship Specialty Start Date End Date Victor M Lafleur MD PCP - General 10/02/13 10/20/23 documented as of this encounter
--- OUTSIDE RECORDS SUMMARY | 2024-10-01 09:59 | XMS_ITS | Encounter Summary ---
Author Organization [facility] Address [facility] [place] [address] Care Team Providers Care Corporation Lawyer Name Role Phone Vanessa Christian MAURI Primary Care Provider [phone] Reason for Visit * Consultation (Routine) - Closed Specialty Diagnoses / Procedures Referred By Contac t Referred To Contact Cardiac Surgery Diagnoses Nonrheumatic aortic valve stenosis significant - TAVR ( defers to Card Surg d/t age) Neftali Ernandez MD [facility] [place] [address] Zak Farmer MD [facility] [place] [address] Referral ID Status Reason Start Date Expiration Date V isits Requested Visits Authorized [id number] Closed Consult, Test & Treat 10/21/2023 10/20/2024 1 1 Encounter Details Date Type Department Care Team (Late st Contact Info) Description 01/09/2024 1:40 PM EDT Office [place] [address] Zak Farmre MD [facility] [place] [address] Nonrheumatic aortic valve stenosis Social [...] office. Best personal regards, Zak Farmer MD [phone] In aggregate 55 minutes were spent evaluating [...] have questions please contact the health school child care attendant that requested your imaging first. ? Electronically signed by: Toby Dave MD, [facility] ([phone]), at 01/09/2024 3:11 PM Narrative 01/09/2024 3:11 [...] who have questions please contactthe health school child care attendant that requested your imaging first. Electronically signed by: Toby Dave MD, [facility]([phone]), at 01/09/2024 3:11 PM Zak Farmer MD [...] ORDERABLE S [facility] [place] [address] * Hepatic Function Panel (01/09/2024 2:58 PM [...] ORDERABLE S Performing Organization Address [facility] Co de Phone Number [facility] [place] [address] * Prothrombin Time (01/09/2024 2:58 PM EDT) [...] ORDERABL ES Performing Organization Address [facility] Co de Phone Number [facility] [place] [address] * Type and Screen Future Surgery, [facility] SAME DAY PROGRAM ONLY) (01/09/2024 2:58 PM EDT) ABORH Type O NEGATIVE [facility] Patient BB History Not Found [facility] Expires at 0488 on: 02-20-2024 [facility] Ab Screen Interp Negative [facility] Blood 01/09/2024 2:58 PM EDT 01/09/2024 2:58 PM EDT Narrative Resulting Agency Comment Spec In Lab Zak Farmer MD [facility] Performing Organization Address City/State/[facility] Co de Phone Number [facility] [place] [address] documented in this encounter Visit Diagnoses Diagnosis Nonrheumatic aortic valve stenosis Aortic valve disorders Nonrheumatic aortic valve stenosis Aortic valve disorders documented in this encounter Care Teams Corporation Lawyer Relationship Specialty Start Date End Date Vanessa Christian, TRAM OPERATOR PCP - General Family Medicine 10/21/23 05/26/24 documented as of this encounter
--- OUTSIDE RECORDS SUMMARY | 2024-10-01 09:59 | XMS_ITS | Encounter Summary ---
Author Organization [facility] [place] [address] Care Team Providers Care Yardage Tufting Machine Operator Name Role Phone Vanessa Christian APRN Primary Care Provider [phone] Encounter Details Date Type Department Care Team [...] on filedocumented in this encounter Care Teams Yardage Tufting Machine Operator Relationship Specialty Start Date End Date Vanessa Christian APRN PCP - General Family Medicine 10/21/23 05/26/24 documented as of this encounter
--- OUTSIDE RECORDS SUMMARY | 2024-10-06 10:50 | XMS_ITS | Referral Summary ---
Author Organization [facility] Address [address] [place] [address] Care Team Providers Care School Bus Mechanic Name Role Phone Vanessa Christian Lane MONCADA Primary Care Provider [phone] Social History Tobacco Use Types Packs/Day Years Used Date Smoking Tobacco: Never Assessed Sex and Gender Information Value Date Recorded Sex Assigned at Not on file Legal Sex Male 22:02 EST Gender Identity Not on file Sexual Orientation Not on file Plan of Treatment Not on file Insurance R Care Teams School Bus Mechanic Relationship Specialty Start Date End Date Vanessa Christian, ANTWAN [address] [place] [phone] PCP - General Family Medicine - Primary Care 10/07/23
--- OUTSIDE RECORDS SUMMARY | 2024-10-06 10:50 | XMS_ITS | Encounter Summary ---
Author Organization [facility] Address [facility] [place] [address] Care Team Providers Care Export Manager Name Role Phone Vanessa Christian MAURI Primary Care Provider [phone] Encounter Details Date Type Department Care Team (Latest Contact Info) Description 03/12/2024 1:30 PM EDT - 03/12/2024 11:59 PM EDT Hospital Encounter XRay at [address] [place] [address] Coronary artery disease, unspecified vessel or lesion type, unspecified whether angina present, unspecified whether false pass or transplanted heart Discharge Disposition: Home Social History Tobacco Use Types Packs/Day Years Used Date Smoking Tobacco: Former Cigarettes Smokeless Tobacco: Never Comments:Quit 15 + years ago Alcohol Use Standard Drinks/Week Comments Yes 0 (1 standard drink = 0.6 oz pur e alcohol) rare [facility] Utilities Answer Date Recorded In the past 12 months has e [employer], gas, oil, or water [email or web address] threatened to shut off services in your [...] type, unspecified whether angina present, unspecified whether false pass or transplanted heart documented in this encounter Results * XR Chest PA & Lateral (Generic) (03/12/2024 1:42 PM EDT) WORKSTATION ID [id number] RAD Anatomical Region Laterality Modality Chest N/A [...] have questions please contact the health care transitions nurse that requested your imaging first. ? Narrative 03/13/2024 8:28 AM EDT EXAMINATION: XR CHEST PA AND LATERAL (GENERIC) CLINICAL HISTORY: s/p cabg eval effusions I25.10, Atherosclerotic heart disease of false pass coronary artery without angina pectoris TECHNIQUE: PA [...] eval effusions I25.10, Atherosclerotic heart disease of false pass coronary artery withoutangina pectoris TECHNIQUE: PA and [...] who have questions please contactthe health care transitions nurse that requested your imaging first. Zak Farmer MD IMG DX ORDERABLES documented in this encounter Visit Diagnoses Diagnosis Coronary artery disease, unspecified vessel or lesion type, unspecified whether angina present, unspecified whether false pass or transplanted heart documented in this encounter Care Teams Export Manager Relationship Specialty Start Date End Date Vanessa Christian APRN PCP - General Family Medicine 10/21/23 05/26/24 documented as of this encounter
--- OUTSIDE RECORDS SUMMARY | 2024-10-06 10:50 | XMS_ITS | Clinical Summary ---
Author Organization [facility] Address [facility] [place] [address] Care Team Providers Care Factory Maintenance Technician Name Role Phone Vanessa Christian Lane DOTSON Primary Care Provider [phone] Allergies No known active allergies Medications Medication [...] will refer to SHT at [facility] for further evaluation. Logistics and preliminary review of TONY were reviewed with patient. - Refer to SHT Hypertension 08/14/2023 Resolved Problems Problem Noted Date Diagnosed Date Resolved Date Nevus of face 09/26/2023 05/27/2024 Overview (09/26/2023): Right amish Chest pressure 08/14/2023 10/21/2023 SILVA (dyspnea on exertion) 08/14/2023 HLD (hyperlipidemia) 08/14/2023 024 Social History Tobacco Use Types Packs/Day Years Used Date Smoking Tobacco: Former Cigarettes Smokeless Tobacco: Never Comments:Quit 15 + years ago Alcohol Use Standard Drinks/Week Comments Yes 0 (1 standard drink = 0.6 oz pur e alcohol) rare [facility] Utilities Answer Date Recorded In the [...] series) 06/07/2024 Medical Devices Implanted Type Area Carver Hand Device Identifier Shelf Expiration Date Model / Serial / Lot Cable,Cut,Edg ,Blnt,Ss,3tpr ([id number]) - [id number] Implanted:Qty : 1 on 02/17/2024 by Zak Farmer MD at [facility] IMPLANTS Midline: Chest [employer] - [id number] 09/02/2028 [id number] / / [id number] Valve Coronary Aortic 23mm Tissue Trnscath Biopros Inspiris ([id number]) (Autoreq) - [id number] Implanted:Qty : 1 on 02/17/2024 by Zak Farmer MD at [facility] IMPLANTS Heart [employer] - TSAI LI 09/15/2027 [id number] 23MM / [id number] / Advance Directives * Attempt Cardiopulmonary Resuscitation [...] Status decision made by: Patient Care Teams Factory Maintenance Technician Relationship Specialty Start Date End Date Vanessa Christian, YEAST STACKER [address] [place] [address] PCP - General Family Medicine 05/27/24
--- OUTSIDE RECORDS SUMMARY | 2024-10-06 10:50 | XMS_ITS | Encounter Summary ---
Author Organization [facility] Address [facility] [place] [address] Care Team Providers Care Autism Tutor Name Role Phone Gino Vanessa Lane DOTSON Primary Care Provider [phone] Encounter Details Date Type Department Care Team (Late st Contact Info) Description 02/24/2024 Orders Only Cardiac Surgery [facility] [place] [phone] Trudi Lester APRN [facility] [place] [address] Social History Tobacco Use Types Packs/Day Years Used Date Smoking Tobacco: Former Cigarettes Smokeless Tobacco: Never Comments:Quit 15 + years ago Alcohol Use Standard Drinks/Week Comments Yes 0 (1 standard drink = 0.6 oz pur e alcohol) rare [facility] Utilities Answer Date Recorded In the past 12 months has e [employer], gas, oil, or water [employer] threatened to shut off services in your [...] filedocumented in this encounter Care Teams Autism Tutor Relationship Specialty Start Date End Date Vanessa Christian APRN PCP - General Family Medicine 10/21/23 05/26/24 documented as of this encounter
--- OUTSIDE RECORDS SUMMARY | 2024-10-06 10:50 | XMS_ITS | Encounter Summary ---
Author Organization [facility] Address [facility] [place] [address] Care Team Providers Care Hot Packer Name Role Phone Vanessa Christian MAURI Primary Care Provider [phone] Encounter Details Date Type Department Care Team [...] filedocumented in this encounter Care Teams Hot Packer Relationship Specialty Start Date End Date Vanessa Christian APRN PCP - General Family Medicine 10/21/23 05/26/24 documented as of this encounter
--- OUTSIDE RECORDS SUMMARY | 2024-10-06 10:50 | XMS_ITS | Encounter Summary ---
Author Organization [facility] Address [address] [place] [address] Care Team Providers Care Chimney Supervisor Brick Name Role Phone Filidayna Vanessa Dayna MONCADA Primary Care Provider [phone] Encounter Details Date Type Department Care Team (Late st Contact Info) Description 10/24/2023 Lab Requisition [facility] Pathology & Laboratory Medicine - [address] [address] Oscar Nichole MD [address] [place] [id number] Factitial dermatitis Social History Tobacco Use Types [...] options, if applicable. 10/28/2023 11:[address] [facility] Final Diagnosis A. SKIN OF AMISH, LEFT, SHAVE BIOPSY: - Seborrheic keratosis, pigmented. 10/28/2023 11:[address] [facility] Attestation By the signature below, the attending physician certifies that they have 1) personally conducted a gross and/or microscopic examination of the described specimen(s), and/or personally interpreted the results of laboratory testing of the described specimen(s), and 2) personally rendered or confirmed the above diagnosis. 10/28/2023 11:24 [facility] at [address] Microscopic Description The stratum corneum is thickened by compact and basketweave orthokeratosis with formation of horn pseudocysts. The epidermis is acanthotic with formation of broad and anastomosing trabeculae. The trabeculae are composed of basaloid keratinocytes with round uniform nuclei. The keratinocytes have a variable amount of melanin pigment. 10/28/2023 11:24 [facility] Clinical History Pigmented 2 cm patch; clinical diagnosis code: L98.1 10/28/2023 11:24 [facility] Gross Description A. [...] A3. Nora Anderson 10/25/2023 8:47 10/28/2023 11:24 [facility] Performing Lab [facility] 10/28/2023 11:24 [facility] Scanned Images 10/28/2023 11:24 [facility] Tissue SPECIMEN FROM SKIN / Unknown 10/24/2023 14:30 EST 10/24/2023 22:04 EST us Oscar Nichole MD PATHOLOGY ORDERABLES Final Resul t [facility] [address] [place] [address] documented in this encounter Visit Diagnoses Diagnosis Factitial dermatitis Dermatitis factitia (artefacta) documented in this encounter Care Teams Chimney Supervisor Brick Relationship Specialty Start Date End Date Vanessa Christian NP [address] [place] [address] PCP - General Family Medicine - Primary Care 10/07/23 documented as of this encounter
--- OUTSIDE RECORDS SUMMARY | 2024-10-06 10:50 | XMS_ITS | Encounter Summary ---
Author Organization [facility] Address [facility] [place] [address] Care Team Providers Care Lobster Fisherman Name Role Phone Vanessa Christian ESTIMATOR PAPERBOARD BOXES Primary Care Provider [phone] Encounter Details Date Type Department Care Team (Late st Contact Info) Description 03/12/2024 2:40 PM EDT Office Visit [place] [phone] Zak Farmer MD [facility] [place] [address] Coronary artery disease, unspecified vessel or lesion type, unspecified whether angina present, unspecified whether pilot point or transplanted heart Social History Tobacco Use Types Packs/Day Years Used Date Smoking Tobacco: Former Cigarettes Smokeless Tobacco: Never Comments:Quit 15 + years ago Alcohol Use Standard Drinks/Week Comments Yes 0 (1 standard drink = 0.6 oz pur e alcohol) rare [facility] Utilities Answer Date Recorded In the past 12 months has e [employer], gas, oil, or water [employer] threatened to shut off services in your [...] 2:40 PM EDT To: MD Vanessa Coles, ESTIMATOR PAPERBOARD BOXES Re; Karlos Santa ( 1960) We had [...] office. Best personal regards, Zak Farmer MD [phone] documented in this encounter Plan of Treatment Not on file documented as of this encounter Procedures Procedure Name Priority Date/Time Associated Diagnosis Comments EKG 12-LEAD Routine 03/12/2024 2:35 PM EDT Coronary artery disease, unspecified vessel or lesion type, unspecified whether angina present, unspecified whether pilot point or transplanted heart documented in this encounter Results * EKG 12 Lead (03/12/2024 2:35 PM EDT) Ventricular rate 59 BPM MUSE SYSTEM Atrial Rate 59 BPM MUSE SYSTEM P-R Interval 190 ms MUSE SYSTEM QRS Duration 92 ms MUSE SYSTEM Q-T Interval 406 ms MUSE SYSTEM QTC Calculated (Bezet) 401 ms MUSE SYSTEM Calculated P [place] -12 degrees MUSE SYSTEM Calculated R [place] 24 degrees MUSE SYSTEM Calculated T [place] 74 degrees MUSE SYSTEM INTERPRETATION Sinus bradycardia T wave abnormality, consider anterior ischemia Abnormal ECG When compared with ECG of 17-FEB-2024 13:24, [place] interval has decreased T wave inversion now evident in Anterior leads Confirmed by Paul Guzman ([id number]) on 03/15/2024 8:36:23 AM MUSE SYSTEM 03/12/2024 2:35 PM EDT 03/15/2024 8:36 AM EDT Zak Farmer MD ECG ORDERABLES [facility] SYSTEM documented in this encounter Visit Diagnoses Diagnosis Coronary artery disease, unspecified vessel or lesion type, unspecified whether angina present, unspecified whether pilot point or transplanted heart documented in this encounter Care Teams Lobster Fisherman Relationship Specialty Start Date End Date Vanessa Christian, MAURI PCP - General Family Medicine 10/21/23 05/26/24 documented as of this encounter
--- OUTSIDE RECORDS SUMMARY | 2024-10-06 10:50 | XMS_ITS | Clinical Summary ---
Author Organization [facility] Address [address] [place] [address] Care Team Providers Care Transportation Maintenance Specialist Name Role Phone Filidayna Vanessa Sherman NP Primary Care Provider [phone] Social History Tobacco Use Types Packs/Day Years [...] 75+ series) 2034 Insurance [employer] Care Teams Transportation Maintenance Specialist Relationship Specialty Start Date End Date Vanessa Christian, ANTWAN [address] [place] [phone] PCP - General Family Medicine - Primary Care 10/07/23
--- OUTSIDE RECORDS SUMMARY | 2024-10-06 10:50 | XMS_ITS | Encounter Summary ---
Author Organization [facility] Address [facility] [place] [address] Care Team Providers Care Consumer Affairs Director Name Role Phone Vanessa Christian MAURI Primary Care Provider [phone] Encounter Details Date Type Department Care Team [...] on filedocumented in this encounter Care Teams Consumer Affairs Director Relationship Specialty Start Date End Date Vanessa Christian APRN [address] [place] [address] PCP - General Family Medicine 05/27/24 documented as of this encounter
--- OUTSIDE RECORDS SUMMARY | 2024-10-06 10:50 | XMS_ITS | Encounter Summary ---
Author Organization [facility] Address [facility] [place] [address] Care Team Providers Care Companion Caregiver Name Role Phone Vanessa Christian Lane DOTSON Primary Care Provider [phone] Reason for Visit * Reason Comments Coronary Artery Disease Aortic Stenosis Encounter Details Date Type Department Care Team (Latest Contact Info) Description 05/27/2024 11:00 AM EDT Office Visit Cardiology at [address] [phone] Neftali Ernandez MD [facility] [place] [address] ASCVD (arteriosclerotic cardiovascular disease); Nonrheumatic aortic valve stenosis Social History Tobacco Use Types Packs/Day Years Used Date Smoking Tobacco: Former Cigarettes Smokeless Tobacco: Never Comments:Quit 15 + years ago Alcohol Use Standard Drinks/Week Comments Yes 0 (1 standard drink = 0.6 oz pur e alcohol) rare [facility] Utilities Answer Date Recorded In the past 12 months has e [employer], gas, oil, or water [employer] threatened to shut off services in your [...] disorders documented in this encounter Care Teams Companion Caregiver Relationship Specialty Start Date End Date Vanessa Christian, MAURI [address] [place] [address] PCP - General Family Medicine 05/27/24 documented as of this encounter
--- OUTSIDE RECORDS SUMMARY | 2024-10-06 10:50 | XMS_ITS | Encounter Summary ---
Author Organization [facility] Address [facility] [place] [address] Care Team Providers Care Wig Comber Name Role Phone Vanessa Christian MAURI Primary Care Provider [phone] Encounter Details Date Type Department Care Team (Latest Contact Info) Description 03/12/2024 Travel Social History Tobacco Use Types Packs/Day Years Used Date Smoking Tobacco: Former Cigarettes Smokeless Tobacco: Never Comments:Quit 15 + years ago Alcohol Use Standard Drinks/Week Comments Yes 0 (1 standard drink = 0.6 oz pur e alcohol) rare [facility] Utilities Answer Date Recorded In the past [...] on filedocumented in this encounter Care Teams Wig Comber Relationship Specialty Start Date End Date Vanessa Christian APRN PCP - General Family Medicine 10/21/23 05/26/24 documented as of this encounter
--- OUTSIDE RECORDS SUMMARY | 2024-10-06 10:51 | XMS_ITS | Encounter Summary ---
Author Organization Count Includes [facility] Address [facility] [place] [address] Care Team Providers Care Sod Farmer Name Role Phone Vanessa Christian MAURI Primary Care Provider [phone] Encounter Details Date Type Department Care Team (Late st Contact Info) Description 02/14/2024 Orders [place] [phone] Zak Farmer MD [facility] [place] [address] Coronary artery disease, unspecified vessel or lesion type, unspecified whether angina present, unspecified whether tribe or transplanted heart (Primary Dx) Social [...] (Bezet) 401 ms MUSE SYSTEM Calculated P [place] -12 degrees MUSE SYSTEM Calculated R [place] 24 degrees MUSE SYSTEM Calculated T [place] 74 degrees MUSE SYSTEM INTERPRETATION Sinus bradycardia T wave abnormality, consider anterior ischemia Abnormal ECG When compared with ECG of 17-FEB-2024 13:24, [place] interval has decreased T wave inversion now evident in Anterior leads Confirmed by Paul Guzman ([id number]) on 03/15/2024 8:36:23 AM MUSE SYSTEM 03/12/2024 2:35 PM EDT 03/15/2024 8:36 AM EDT Zak Farmer MD ECG ORDERABLES MUSE SYSTEM * XR Chest PA & Lateral (Generic) (03/12/2024 1:42 PM EDT) Pathologist [facility] WORKSTATION ID [id number] [facility] Anatomical Region Laterality Modality Chest N/A Digital [...] have questions please contact the health career coordinator that requested your imaging first. ? Electronically signed by: Augie Sanchez MD, [facility] ([phone]), at 03/13/2024 8:28 AM Narrative 03/13/2024 8:28 AM EDT EXAMINATION: XR CHEST PA AND LATERAL (GENERIC) CLINICAL HISTORY: s/p cabg eval effusions I25.10, Atherosclerotic heart disease of tribe coronary artery without angina pectoris TECHNIQUE: [...] eval effusions I25.10, Atherosclerotic heart disease of tribe coronary artery withoutangina pectoris TECHNIQUE: PA [...] who have questions please contactthe health career coordinator that requested your imaging first. Electronically signed by: Augie Sanchez MD, [facility]([phone]), at 03/13/2024 8:28 AM Zak Farmer MD IMG DX ORDERABLES documented in this encounter Visit Diagnoses Diagnosis Coronary artery disease, unspecified vessel or lesion type, unspecified whether angina present, unspecified whether tribe or transplanted heart- Primary Coronary artery disease, unspecified vessel or lesion type, unspecified whether angina present, unspecified whether tribe or transplanted heart documented in this encounter Care Teams Sod Farmer Relationship Specialty Start Date End Date Vanessa Christian APRN PCP - General Family Medicine 10/21/23 05/26/24 documented as of this encounter
--- OUTSIDE RECORDS SUMMARY | 2024-10-06 10:51 | XMS_ITS | Encounter Summary ---
Author Organization [facility] [place] [address] Care Team Providers Care Evs Attendant Name Role Phone Aparna Jordan MAURI Primary Care Provider [phone] Reason for Visit * Auth/Cert (Routine) Specialty [...] ARTERIAL GRAFT (WRVU 7.93) Hayder Graham MD [facility] [place] [address] [facility] Referral ID Status Reason Start Date Expiration Date Visits Re quested Visits Authorized [id number] 1 1 Encounter Details Date Type Department Care Team (Late st Contact Info) Description 02/17/2024 7:30 AM EDT - 02/17/2024 1:26 PM EDT Surgery [place] [id number] Hayder Graham MD [facility] [place] [address] ENDOSCOPIC HARVEST VEIN(S) FOR CABG (WRVU 0.31) Social History Tobacco Use Types Packs/Day Years Used Date Smoking Tobacco: Former Cigarettes Smokeless Tobacco: Never Comments:Quit 15 + years ago Alcohol Use Standard Drinks/Week Comments Yes 0 (1 standard drink = 0.6 oz pur e alcohol) rare [facility] Utilities Answer Date Recorded In [...] 1-2 weeks. Patient to follow up with Lumber Carrier Operator, Neftali Ernandez MD , in 2 weeks. Patient to follow up with Cardiac Surgeon, Dr. Hayder Graham, with a chest x-ray, EKG, and Echo. Inpatient Provider Contact Information: [facility] Section of [place]iac [place] [facility] [address] FAX [phone] Discharge Diagnoses (Hospital Problems) Primary Diagnoses: /CAD [...] 33.75) performed by Hayder Graham MD at [facility] MAIN OR PRO CABG, ARTERY-VEIN, TWO N/A 02/17/2024 @CABG, TWO VENOUS GRAFTS & ARTERIAL GRAFT (WRVU 7.93) performed by Hayder Graham MD at [facility] MAIN OR PRO ENDOSCOPY W/VIDEO-ASST VEIN HARVEST, CABG Left 02/17/2024 ENDOSCOPIC HARVEST VEIN(S) FOR CABG (WRVU 0.31) performed by Hayder Graham MD at [facility] MAIN OR PRO REPLACEMENT PROSTHETIC AORTIC VALVE OPEN W CARDIOPULMONARY BYPASS HOMOGRF/STENT N/A 02/17/2024 @REPLACE AORTIC VALVE, OPEN, W\CPB, W\PROSTHETIC VALVE (WRVU 41.32) performed by Hayder Graham MD at [facility] MAIN OR Prior To Admission [...] insufficiency. He has glaucoma. He used to bacFirmex until about 15 years ago. He has undergone prior herniorrhaphy. 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 Major Procedures/Operations: 02/17/24 s/p avr/cabgx3 CABG x 3 JOSE->LAD SVG->dRCA SVG->OM1 EVH from LLE AVR with a 23 mm Inspiris Bioprosthesis Hospital Course: Karlos Garcia was admitted to [facility] on 02/17/2024 via the Same Day Program. [...] Hayder Graham and/or the Cardiac Surgery Physician Bread Stacker Team may be reached at . Antibiotic [...] Dr. Hayder Graham. You may use a [place] Track or treadmill but avoid any pulling [...] friends, go to a movie, go to bahai, etc. Heavy activities: No hunting, skiing, jogging, [...] while being managed by your PCP and/or Lumber Carrier Operator. For future medication refills, please refer to your PCP and/or Lumber Carrier Operator after your discharge from our service. Thank you REMOVE CHEST TUBE SUTURES ON OR AFTER 03/02/24 Home oxygen therapy: N/A Follow up appointments: You should follow up with your PCP, Aparna Jordan APRN, in 1-2 weeks. Our office will schedule an appointment with your Lumber Carrier Operator, Neftali Ernandez MD , in 2 weeks. You have an appointment with your Cardiac Surgeon, Dr. Hayder Graham, 4 weeks with a chest x-ray, EKG, and Echo before your appointment. Cardiac Rehabilitation: Karlos Garcia was seen regarding participation in the outpatient Phase 2Cardiac Rehabilitation at [facility]. The patient agrees to a referral to this program. The referral will be sent at discharge and the patient should be contacted by the Program within 1- 2 weeks from discharge. Future Appointments and Orders Future Orders Complete By Expires Echocardiogram Transthoracic [48123 CPT(R)] 03/26/2024 09/25/2024 Process Instructions: Scheduling Instructions: Questions: Where will study be performed?: [facility] Does the patient have Congenital Heart Disease?: Does patient require sedation?: Sedation rationale: XR Chest PA & Lateral (Generic) [61908 94333 Custom] 03/26/2024 09/25/2024 Process Instructions: Scheduling Instructions: Questions: Portable exam?: Reason for exam and clinical history: s/p avr/cabg Clinical information / jerome questions for radiologist: Stat read required?: Date of injury if applicable: Requested Time: Where will study be performed?: [facility] Radiology Referral to Cardiac Rehab [[id number] Custom] As directed Process Instructions: If no progress note charted, please enter Clinical details in comments. Scheduling Instructions: Questions: My question or request is: s/p AVR/CABG. Cardiac rehab at [facility]. Referral to Home Health [REF34 Custom] As directed Process Instructions: If no progress note charted, please enter Clinical details in comments. Scheduling Instructions: Comments: Please evaluate Karlos Garcia for admission to Home Health. [address] Phone Number: Date of : 1960 Inpatient DOCUMENTATION FOR VNA SERVICES (INCLUDING THOSE PATIENTS WITH MEDICARE COVERAGE REQUIRING HOME VNA SERVICES AND/OR HOSPICE SERVICES) PATIENT'S LOCATION: Karlos Garcia [address] [employer] [phone] Straightedge Man's Name: self/family In discussion with the attending physician, it is certified that this patient is under their care and that they, or a Nurse Practitioner, or Physician Bread Stacker who is working directly with them, hada [...] for services as follows: HOME HEALTH AGENCY: [facility] [address] [place] [address] RN orders: Cardiopulmonary assessment, incisional assessment, assess [...] issues please call the Cardiology Office at [phone] FOR MEDICARE ONLY: (please delete this section [...] [facility] [address] FAX [phone] Date: 02/24/2024 CC: Aparna Jordan, MAURI Jordan, Aparna Sherman APRN [address] [place] [address] documented in this encounter Discharge Instructions * [...] Hayder Graham and/or the Cardiac Surgery Physician Bread Stacker Team may be reached at . Antibiotic [...] Dr. Hayder Graham. You may use a [place] Track or treadmill but avoid any pulling [...] friends, go to a movie, go to bahai, etc. Heavy activities: No hunting, skiing, jogging, [...] while being managed by your PCP and/or Lumber Carrier Operator. For future medication refills, please refer to your PCP and/or Lumber Carrier Operator after your discharge from our service. Thank you REMOVE CHEST TUBE SUTURES ON OR AFTER 03/02/24 Home oxygen therapy: N/A Follow up appointments: You should follow up with your PCP, Aparna Jordan APRN, in 1-2 weeks. Our office will schedule an appointment with your Lumber Carrier Operator, Neftali Ernandez MD , in 2 weeks. You have an appointment with your Cardiac Surgeon, Dr. Hayder Graham, 4 weeks with a chest x-ray, EKG, and Echo before your appointment. Cardiac Rehabilitation: Karlos Garcia was seen regarding participation in the outpatient Phase 2Cardiac Rehabilitation at [facility]. The patient agrees to [...] 0600 and on the weekends please page [phone]. * Eric Barahona PA - 02/23/2024 9:27 [...] 0600 and on the weekends please page [phone]. * Tiffanie Owens, INFORMATION TECHNOLOGY INTERN - 02/22/2024 2:48 PM EDT Physical Therapy [...] d/c for 10 days. Pt was indep INFORMATION TECHNOLOGY INTERN. He drives. He works Precautions/Special Considerations: STERNAL [...] LRAD and supervision Time IN / OUT: 1223-1202 Total Time: 30 minutes; TEFx2 Tiffanie Owens Pager: [phone] Physical Therapy Inpatient Rehabilitation Department * Romeo [...] 0600 and on the weekends please page [phone]. * Kelley Hinson INFORMATION TECHNOLOGY INTERN - 02/21/2024 10:15 AM EDT Physical Therapy [...] d/c for 10 days. Pt was indep INFORMATION TECHNOLOGY INTERN. He drives. He works Precautions/Special Considerations: STERNAL [...] LRAD and supervision Time IN / OUT: 0736-0020 Total Time: 25 minutes; TEF 2 Kelley Hinson PTA Pager: [phone] Physical Therapy Inpatient Rehabilitation Department * Louisa [...] 0600 and on the weekends please page [phone]. * Kelley Hinson PTA - 02/20/2024 3:32 [...] at that time Kelley Hinson PTA Pager: [phone] Physical Therapy Inpatient Rehab Department * Louisa [...] 0600 and on the weekends please page [phone]. * Maris Benavides, PT - 02/19/2024 11:22 [...] d/c for 10 days. Pt was indep INFORMATION TECHNOLOGY INTERN. He drives. He works. Precautions/Special Considerations: STERNAL [...] outlined inthis evaluation. MARIS BENAVIDES, PT Pager: [phone] Physical Therapy Inpatient Rehabilitation Department Time IN / OUT: 4346-6411 Total Time: 38 (eval) minutes; * Antonio [...] 0600 and on the weekends please page [phone]. * Minnie Begum PA - 02/18/2024 8:25 [...] 0600 and on the weekends please page [phone]. * Kim Ha RCP - 02/17/2024 2:25 [...] plan since last visit. Hayder Graham MD [phone] Source Note - Hayder Graham MD - [...] given written informed consent. Hayder Graham MD [phone] * Hayder Graham MD - 02/17/2024 7:00 [...] given written informed consent. Hayder Graham MD [phone] documented in this encounter Miscellaneous Notes * [...] information for follow-up Home Health & Hospice, [address] [place] [address] Cardiac Rehab, [address] [place] [address] Transportation: family or friend will provide Functional status prior to admission: Independent Home Environment: Others in the home: alone. Current Living Arrangements: home/apartment/condo. Accessibility Concerns:a few steps to enter 1 floor home. Current Functional Ability: Assistive Person and Equipment DME used at home: none DME Needed at Discharge: N/A Patient is insured through: Primary Insurance: [employer] Payor: [facility] / Plan: [facility] PPO / Product Type: *No Product [...] pain managed with scheduled Tylenol. Worked with [employer]. Ambulated in the roque multiple times during [...] anticipated Patient is insured through: Primary Insurance: [facility] Payor: [facility] / Plan: [facility] PPO / Product Type: *No Product type* / Secondary Insurance: N/A Last Physical Therapy Recommendation: home with home health (Str coming to stay for a week or two upon d/c) with to be determined (owns rolling walker, shower seat) Plan for discharge is: Home w/ Services Outpatient Agency/Support Group Needs: Homecare agency Home Health Services: Physical Therapy, Registered Nurse Agency Referrals: [facility] [address] [place] [address] Transportation: family or friend will provide Barriers to discharge: Discharge planning Plan going forward: Service Care Management will continue to follow and assist with discharge planning and coordination of care as indicated. Anticipated Date of Discharge: 02/22/2024 Rhett Bell RN RN/CM - Cellphone: [phone] Pager: [phone] Covering Service RN/CM * Plan of Care [...] Yang RN - 02/19/2024 10:44 AM EDT [facility]ATION Karlos Garcia was seen today regarding participation in the outpatient Phase 2 Cardiac Rehabilitation at [facility]. The patient agrees to [...] 180 days) Any patient receiving care in [place] must abide by [place] law. The hierarchy [...] In the past 12 months has the [employer], gas, oil, or water [employer] threatened to shut off services in your [...] Address confirmed as: [address] [facility] [address] Physical address: [address] [facility], [address] Social & Family Supports: All names listed [...] Information: none noted Health/Prescription Coverage: Primary Insurance: [facility] Payor: [facility] / Plan: [facility] PPO / Product Type: *No Product type* / Secondary Insurance: N/A ; Prescription Coverage: Yes Preferred Pharmacy: [id number] [address] [place] Status: Patient is a : No Primary Care Provider confirmed: Aparna Jordan, MAURI [phone] Patient/Caregiver Goals of Treatment: dc to home Potential Needs for Transition of Care: home health care Agency Referrals: I have met with the patient to: discuss discharge planning needs. provide the [facility], Office of Care Management letter from the [place] pertaining to rehab referrals. provide a letter describing our affiliations within the [facility] and educate about their right to choose where referrals are sent. provide a list of Home Health Agencies / Durable Medical Equipment vendors which serve their preferred geographic area. provided patient with [facility] Star Quality Rating handout. They have requested referrals to: [facility] [address] [place] [address] Note routed to a County Nurse who will communicate referrals to facilities and [...] Reina Greene RN CM, BSN, CMGT-BC Ext [phone] * Plan of Care - Binta Trinidad [...] Operative Note Patient Name: Karlos Garcia : [id number] MR#: [id number] Case Date: 02/17/2024 Surgeon: Surgeon(s) and Role: * Hayder Graham MD - Primary * Neftali Menon PA - Physician Bread Stacker Preoperative diagnosis: CAD Postoperative diagnosis: CAD, intraoperative [...] mL Drains: Mediastinal and Left pleural Disposition: [facility] Condition: doing well without problems Attestation: Case Date: 02/17/2024 I performed this procedure without the involvement of a resident. HAYDER GRAHAM MD 02/17/2024 * Op Note - Hayder Graham MD - 02/17/2024 8:20 AM EDT [facility] Operative Note Patient Name: Karlos Garcia : [id number] MR#: [id number] Case Date: 02/17/2024 Surgeon: Surgeons and Role: * Hayder Graham MD - Primary * Neftali Menon PA - Physician Bread Stacker Preoperative diagnosis: CAD Postoperative diagnosis: CAD, intraoperative [...] mL Drains: Mediastinal and Left pleural Disposition: [facility] Procedure Description: The patient was [...] Aortic Valve Open W Cardiopulmonary Bypass Homogrf/Stent (22030) Yes 02/17/2024 7:28 AM EDT CAD Cabg, Artery-Vein, Two (19700) Yes 02/17/2024 7:28 AM EDT CAD Cabg, Arterial, Single (11465) Yes 02/17/2024 7:28 AM EDT CAD Endoscopy W/Video-Asst Vein [place], Cabg (66294) Yes 02/17/2024 7:28 AM EDT CAD POCT [...] CHEMISTRY ORDERABLE S [facility] [address] * (ABNORMAL) Basic Metabolic Panel (non-fasting) (02/23/2024 [...] Carpio MD CHEMISTRY ORDERABLES Performing Organization Address [facility] Co de Phone Number [facility] [address] * Potassium (02/22/2024 4:30 AM EDT) Potassium [...] MD CHEMISTRY ORDERABLE S Performing Organization Address [facility] Co de Phone Number [facility] [address] * (ABNORMAL) Basic Metabolic Panel (non-fasting) (02/21/2024 [...] 31 [facility] Comment:Add-on request. Samp [...] MD CHEMISTRY ORDERABLES [facility] [place] [address] * Lactate, whole blood, send to lab ([facility]) (02/21/2024 9:45 AM EDT) Lactate WB 2.0 0.5 - 2.2 mmol/L [facility] Blood 02/21/2024 9:45 AM EDT 02/21/2024 9:52 AM EDT Narrative Resulting Agency Comment Spec In Lab Hayder Graham MD CHEMISTRY ORDERABLE S Performing Organization Address City/[facility]/ZIP Co de Phone Number [facility] [address] * (ABNORMAL) Hepatic Function Panel (02/21/2024 9:45 AM EDT) Pathologist [facility] Protein, Total 5.7(L) 6.1 - 8.0 g/dL [...] MD CHEMISTRY ORDERABLE S Performing Organization Address City/[facility]/ZIP Co de Phone Number [facility] [place] [address] * Lipase (02/21/2024 9:45 AM EDT) Pathologist [facility] Lipase 56 0 - 60 unit/L [facility] Blood 02/21/2024 9:45 AM EDT 02/21/2024 9:52 AM EDT Narrative Resulting Agency Comment Spec In Lab Hayder Graham MD CHEMISTRY ORDERABLE S Performing Organization Address [facility] Co de Phone Number [facility] [place] [address] * Amylase (02/21/2024 9:45 AM EDT) Amylase 69 28 - 100 unit/L [facility] Blood 02/21/2024 9:45 AM EDT 02/21/2024 9:52 AM EDT Narrative Resulting Agency Comment Spec In Lab Hayder Graham MD CHEMISTRY ORDERABLE S Performing Organization Address [facility] de Phone Number [facility] [place] [address] * Potassium (02/21/2024 3:08 AM EDT) Pathologist [facility] Potassium 3.8 3.5 - 5.0 mmol/L BARRE [...] MD CHEMISTRY ORDERABLE S Performing Organization Address [facility] Co de Phone Number [facility] [place] [address] * XR Chest PA & Lateral (Generic) (02/20/2024 10:19 AM EDT) WORKSTATION ID [id number] RAD Anatomical Region Laterality Modality Chest N/A Digital Radiogra phy Impressions 02/20/2024 1:11 PM EDT Small pleural effusions. No pneumothorax Thank you for letting us participate in the care of this patient. ??If you are a health care provider and have any questions regarding this report, please contact the number below. ??For patients who have questions please contact the health manager intensive care that requested your imaging first. ? Electronically signed by: Rogerio Cruz MD, [facility] ??([phone]), at 02/20/2024 1:11 PM Narrative 02/20/2024 1:11 PM EDT EXAMINATION: XR CHEST PA AND LATERAL (GENERIC) CLINICAL HISTORY: s/p AVR/CABGx3 TECHNIQUE: PA and lateral views of the chest COMPARISON: 02/17/2024 FINDINGS: Support devices: Interval removal of [place] catheter, endotracheal tube and mediastinal chest tubes The cardiac silhouette is stable status post median sternotomy, CABG and aortic valve replacement. There are small pleural effusions. No pneumothorax. Procedure Note Rogerio Cruz MD - 02/20/2024 EXAMINATION: XR CHEST PA AND LATERAL (GENERIC) CLINICAL HISTORY: s/p AVR/CABGx3 TECHNIQUE: PA and lateral views of the chest COMPARISON: 02/17/2024 FINDINGS: Support devices: Interval removal of [place] catheter, endotracheal tubeand mediastinal chest tubes The [...] who have questions please contactthe health manager intensive care that requested your imaging first. Electronically signed by: Rogerio Cruz MD, [facility]([phone]), at 02/20/2024 1:11 PM Hayder Graham MD IMG DX ORDERABLES * Scan, Peripheral Blood (02/20/2024 4:23 AM EDT) Plat estimate Decreased [facility] RBC Morphology Normal [facility] Blood 02/20/2024 4:23 AM EDT 02/20/2024 4:42 AM EDT Narrative Resulting Agency Comment Spec In Lab Minnie FRENCH HEMATOLOGY CECILIO ALMEAN [facility] [place] [address] * (ABNORMAL) Differential, Automated (02/20/2024 4:23 AM EDT) Pathologist [facility] Neutrophil % 81.7 % [facility] Neutrophil Absolute 10.37(H) 1.70 - 6.10 x10(3)/mc L [facility] Lymph % 7.4 % [facility] Lymphocytes Abs 0.9 0.9 - 3.2 x10(3)/mc L [facility] Monocyte % 9.7 % [facility] Monocyte Abs 1.2(H) 0.3 - 0.9 x10(3)/mc L [facility] Eos % 0.1 % [facility] Eosinophils Abs 0.0 0.0 - 0.4 x10(3)/mc L [facility] Basophil % 0.2 % ST. [...] Resulting Agency Comment Spec In Lab Minnie FRECNH HEMATOLOGY CECILIO ALEMAN [facility] [place] [address] * (ABNORMAL) Hemogram (02/20/2024 4:23 AM EDT) White Blood Cell 12.7(H) 4.0 - 9.5 x10(3)/[facility] Red Blood Cell 4.26(L) 4.58 - 5.54 x10(6)/[facility] Hemoglobin 12.3(L) 13.7 - 16.5 g/dL [facility] Hematocrit 37.1(L) 40.5 - 48.5 % [facility] Mean Cell Volume 87.1 82.9 - 93.1 [facility] Mean Cell Hemoglobin 28.9 27.5 - 32.1 pg [facility] Mean Cell Hemoglobin Concentration 33.2 32.0 - 35.7 g/dL [facility] Platelet 88(L) 145 - 357 x10(3)/[facility] RDW Standard Deviation 43.5 36.0 - 45.0 [facility] RDW coefficient of variation 13.7 11.4 - 13.8 % [facility] Mean Platelet Volume 10.2 7.6 - 12.9 [facility] LAB[facility]ORY NRBC% auto 0.0 % [facility] NRBC Absolute 0.000 0.000 - 0.000 x10(3)/ L [facility] Blood 02/20/2024 4:23 AM EDT 02/20/2024 4:42 AM EDT Narrative Resulting Agency Comment Spec In Lab Minnie FRENCH HEMATOLOGY CECILIO ALEMAN [facility] [place] [address] * (ABNORMAL) Basic Metabolic Panel (non-fasting) (02/20/2024 [...] MD CHEMISTRY ORDERABLE S Performing Organization Address City/[facility]/ZIP Co de Phone Number [facility] [address] * Potassium (02/19/2024 3:57 AM EDT) Potassium [...] MD CHEMISTRY ORDERABLE S Performing Organization Address [facility] Co de Phone Number [facility] [address] * POCT Glucose (02/18/2024 8:24 AM EDT) Glucose, POC 157 65 - 199 mg/dL [facility] Comment: Supplemental ranges: <140 mg/dL before meals <180 mg/dL all other times of the day Blood 02/18/2024 8:24 AM EDT 02/18/2024 8:24 AM EDT Hayder Graham MD POINT OF CARE TEST ORDERABLES Performing Organization Address [facility]/ZIP Co de Phone Number [facility] [address] * Scan, Peripheral Blood (02/18/2024 1:40 AM EDT) Plat estimate Decreased [facility] RBC Morphology Normal [facility] Blood 02/18/2024 1:40 AM EDT 02/18/2024 1:56 AM EDT Narrative Resulting Agency Comment Spec In Lab Neftali FRENCH HEMATOLOGY ORDER OLE [facility] [address] * (ABNORMAL) Differential, Automated (02/18/2024 1:40 AM EDT) Neutrophil % 87.1 % [facility] Neutrophil Absolute 15.03(H) 1.70 - 6.10 x10(3)/mc L [facility] Lymph % 3.0 % [facility] Lymphocytes Abs 0.5(L) 0.9 - 3.2 x10(3)/mc L [facility] Monocyte % 9.1 % [facility] Monocyte Abs 1.6(H) 0.3 - 0.9 x10(3)/mc L [facility] Eos % 0.0 % [facility] Eosinophils Abs 0.0 0.0 - 0.4 x10(3)/mc L [facility] Basophil % 0.2 % ST. [...] HEMATOLOGY ORDER OLE [facility] [address] * (ABNORMAL) Hemogram (02/18/2024 1:40 AM EDT) [...] Standard Deviation 39.9 36.0 - 45.0 fL [facility] RDW coefficient of variation 13.2 11.4 - 13.8 % [facility] Mean Platelet Volume 9.9 7.6 - 12.9 fL [facility] NRBC% auto 0.0 % [facility] NRBC Absolute 0.000 0.000 - 0.000 x10(3)/mc L [facility] Blood 02/18/2024 1:40 AM EDT 02/18/2024 1:56 AM EDT Narrative Resulting Agency Comment Spec In Lab Neftali FRENCH HEMATOLOGY ORDER OLE [facility] [place] [address] * (ABNORMAL) Basic Metabolic Panel (non-fasting) (02/18/2024 [...] CHEMISTRY ORDERABLE S [facility] [place] [address] * (ABNORMAL) Troponin (02/18/2024 1:40 AM EDT) [...] [facility] Test Catalog Reference: Fourth [place] Definition of Myocardial Infarction. Journal of the [place] [employer] 2018;72:6226-8886 Blood 02/18/2024 1:40 AM EDT 02/18/2024 1:56 AM EDT Narrative Resulting Agency Comment Spec In Lab Hayder Graham MD CHEMISTRY ORDERABLE S [facility] [place] [address] * POCT Glucose (02/17/2024 8:13 PM EDT) Glucose, POC 142 65 - 199 mg/dL [facility] Comment: Supplemental ranges: <140 mg/dL before meals <180 mg/dL all other times of the day Blood 02/17/2024 8:13 PM EDT 02/17/2024 8:13 PM EDT Hayder Graham MD POINT OF CARE TEST ORDERABLES Performing Organization Address [facility] Co de Phone Number [facility] [address] * POCT Glucose (02/17/2024 5:42 PM EDT) Glucose, POC 160 65 - 199 mg/dL [facility] Comment: Supplemental ranges: <140 mg/dL before meals <180 mg/dL all other times of the day Blood 02/17/2024 5:42 PM EDT 02/17/2024 5:42 PM EDT Hayder Graham MD POINT OF CARE TEST ORDERABLES Performing Organization Address [facility] Co de Phone Number [facility] [address] * Hemoglobin (02/17/2024 5:42 PM EDT) [facility] Signature Hemoglobin 13.7 13.7 - 16.5 g/dL [facility] Blood 02/17/2024 5:42 PM EDT 02/17/2024 6:10 PM EDT Narrative Resulting Agency Comment Spec In Lab Hayder Graham MD HEMATOLOGY ORDERABL ES Performing Organization Address [facility] Co de Phone Number [facility] [address] * Potassium (02/17/2024 5:42 PM EDT) [facility] Signature Potassium 4.3 3.5 - 5.0 mmol/L BAR[facility] [...] CHEMISTRY ORDERABLE S [facility] [address] * (ABNORMAL) BLOOD GAS 2 ARTERIAL (02/17/2024 [...] [facility] FIO2 Art 40 % [facility] PF Ratio Art 195 [facility] Blood 02/17/2024 4:18 PM EDT 02/17/2024 4:18 PM EDT Hayder Graham MD POINT OF CARE TEST ORDERABLES [facility] [place] [address] * XR Chest One View (02/17/2024 1:44 PM EDT) [email or web address] WORKSTATION ID [id number] DH RAD Anatomical Region Laterality Modality Chest N/A Digital Radiogra phy Impressions 02/17/2024 2:12 PM EDT 1. ??No definite pleural fluid collection or pneumothorax. 2. ??Right IJ Eustis-Kaila catheter tip terminates in a descending branch [...] have questions please contact the health manager intensive care that requested your imaging first. ? Electronically signed by: Denzel Hankins MD, [facility] ??([phone]), at 02/17/2024 2:12 PM Narrative 02/17/2024 2:12 PM EDT EXAMINATION: XR CHEST ONE VIEW CLINICAL HISTORY: s/p avr/cabg eval effusions TECHNIQUE: 1 view of the chest COMPARISON: Chest x-ray 01/09/2024, chest CT 02/03/2024 FINDINGS: ET tube tip terminates 5.2 cm above the carlos. Right IJ Eustis-Kaila catheter tip terminates in a descending branch [...] 5.2 cm above the carlos. Right IJ Eustis-Ganzcatheter tip terminates in a descending branch of [...] fluid collection or pneumothorax. 2. Right IJ Eustis-Kaila catheter tip terminates in a descending branch ofthe right pulmonary artery. Suggest catheter retraction. 3. Additional support lines and tubes as above. Thank you for letting us participate in the care of this patient. If youare a health care provider and have any questions regarding this report,please contact the number below. For patients who have questions please contactthe health manager intensive care that requested your imaging first. Electronically signed by: Denzel Hankins MD, [facility]([phone]), at 02/17/2024 2:12 PM Hayder Graham MD [...] [facility] FIO2 Art 100 % [facility] PF Ratio Art 320 [facility] Blood 02/17/2024 1:31 PM EDT 02/17/2024 1:31 PM EDT Hayder Graham MD POINT OF CARE TEST ORDERABLES [facility] [place] [address] * (ABNORMAL) Coox2 (02/17/2024 1:21 PM EDT) [...] OF CARE TEST ORDERABLES Performing Organization Address City/[facility]/ZIP Co de Phone Number [facility] [address] * (ABNORMAL) BLOOD GAS 2 ARTERIAL (02/17/2024 [...] CARE TEST ORDERABLES Performing Organization Address [facility] Co de Phone Number [facility] [place] [address] * (ABNORMAL) Fibrinogen (02/17/2024 12:10 PM EDT) [...] MD HEMATOLOGY ORDERABLE S Performing Organization Address [facility] Co de Phone Number [facility] [address] * (ABNORMAL) Thrombin time (02/17/2024 12:10 PM [...] MD HEMATOLOGY ORDERABLE S Performing Organization Address [facility] Co de Phone Number [facility] [address] * APTT (02/17/2024 12:10 PM EDT) Partial [...] MD HEMATOLOGY ORDERABLE S Performing Organization Address [facility] Co de Phone Number [facility] [address] * (ABNORMAL) Prothrombin Time (02/17/2024 12:10 PM [...] HEMATOLOGY ORDERABLE S [facility] [address] * (ABNORMAL) Hemogram (02/17/2024 12:10 PM EDT) [...] [facility] NRBC% auto 0.0 % [facility] NRBC Absolute 0.000 0.000 - 0.000 x10(3)/mc L [facility] Blood 02/17/2024 12:1 0 PM EDT 02/17/2024 12:19 PM EDT Narrative Resulting Agency Comment Spec In Lab Tara York MD HEMATOLOGY ORDERABLE S [facility] [place] [address] * (ABNORMAL) BLOOD GAS 2 ARTERIAL (02/17/2024 [...] [facility] Comment: Noted by instrument adjuster. Please [...] CARE TEST ORDERABLES [facility] [address] [place] [address] * (ABNORMAL) BLOOD GAS 2 ARTERIAL (02/17/2024 [...] [facility] Comment: Noted by instrument adjuster. Please [...] CARE TEST ORDERABLES Performing Organization Address [facility] de Phone Number [facility] [address] * (ABNORMAL) Hemoglobin and Hematocrit, blood (02/17/2024 [...] MD HEMATOLOGY ORDERABL ES Performing Organization Address [facility] de Phone Number [facility] [address] * (ABNORMAL) Platelet count (02/17/2024 11:04 AM EDT) Platelet 106(L) 145 - 357 x10(3)/mc L [facility] Immature Plt % 1.6 0.0 - 7.4 % [facility] Comment: Limitation of the Immature Platelet Fraction (IPF)-May be less reliable when the platelet count is less than 54m372/uL due to statistical imprecision. The IPF value [...] in a decreased state of production. References: [employer] The Clinical Value of the Immature Platelet Fraction (IPF) in Cell Recovery Document Number [id number] 03/2011 [employer] The Role of the Immature Platelet Fraction (IPF) in the Differential Diagnosis of Thrombocytopenia, Document [id number] V002/15/14 Blood 02/17/2024 11:0 4 AM EDT 02/17/2024 11:12 AM EDT Narrative Resulting Agency Comment Spec In Lab Hayder Graham MD HEMATOLOGY ORDERABL ES Performing Organization Address City/[facility]/ZIP Co de Phone Number [facility] [address] * (ABNORMAL) Fibrinogen (02/17/2024 11:04 AM EDT) [...] MD HEMATOLOGY ORDERABL ES Performing Organization Address City/[facility]/ZIP Co de Phone Number [facility] [address] * (ABNORMAL) BLOOD GAS 2 ARTERIAL (02/17/2024 [...] CARE TEST ORDERABLES [facility] [place] [address] * (ABNORMAL) BLOOD GAS 2 ARTERIAL (02/17/2024 [...] OF CARE TEST ORDERABLES Performing Organization Address City/State/[facility] Co de Phone Number [facility] [place] [address] * Surgical Pathology Report (02/17/2024 10:01 AM EDT) Final Diagnosis [id number] ? Location: [facility]; [facility]; The signing pathologist has (i) examined the relevant preparation(s) for the specimen(s) and (ii) rendered or confirmed the diagnosis(es). . ?Surgical Pathology DIAGNOSIS Aortic valve leaflets, excision: Valve leaflets with myxoid degeneration, nodular fibrosis and dystrophic calcifications. Electronically signed by: ?Lindsay FERNANDEZ, Livier Gonzalez Verified: ??02/24/2024 13:49 ??Pathologist Performed at: ??-[facility] Dept. of Pathology, [place] [address] Cro: Job Brewer MD, FCAP, ??CLIA Certificate: [id number] SPECIMEN(S) SUBMITTED A - Aortic Valve Leaflets, [...] Sections Processing Blocks submitted for decalcification: A1. Mold Polisher sections in 1 cassette labeled A1. ??ajw 02/24/2024 1:49 PM EDT [facility] AORTIC STRUCTURE / Unknown 02/17/2024 10:01 AM EDT 02/17/2024 10:01 AM EDT Hayder Graham MD PATHOLOGY/[place] [address] * Specimen to Pathology (02/17/2024 10:01 AM EDT) AP Specimen 02/17/2024 10:0 1 AM EDT 02/17/2024 10:01 AM EDT Narrative [facility] - 02/17/2024 10:01 AM EDT Specimen requisition ordered. ??Separate Pathology report to follow Hayder Graham MD PATHOLOGY/CYTOLOGY ORDERABLES [facility] [address] * (ABNORMAL) BLOOD GAS 2 ARTERIAL (02/17/2024 [...] CARE TEST ORDERABLES [facility] [place] [address] * (ABNORMAL) BLOOD GAS 2 VENOUS (02/17/2024 9:34 AM EDT) pH, Venous 7.22(Criti marquez) 7.32 - 7.42 [facility] Comment:Noted by instrument adjuster. PCO2, Venous 43 41 - 51 mmHg [facility] Comment:Noted by instrument adjuster. PO2, Venous 57(H) 25 - 40 mmHg [facility] Comment:Noted by instrument adjuster. Bicarbonate, Venous 17.1 mmol/L [facility] Comment:Noted by instrument adjuster. Base Excess, Venous -10.6 mmol/L [facility] Comment:Noted by instrument adjuster. Hgb Blood Gas 11.2(L) 13.7 - 16.5 g/dL [facility] Comment:Noted by instrument adjuster. Oxyhemoglobin, Venous 86.5 % [facility] Comment:Noted by instrument adjuster. Carboxyhemoglob in, Venous 0.3 % [facility] Comment: Noted by instrument adjuster. Nonsmokers: 0.5-1.5% COHB Smokers: Variable, but usually less than 10% Toxic: 20-30% COHB Lethal: Greater than 60% COHB Methemoglobin, Venous 0.0 <=1.5 % [facility] Comment:Noted by instrument adjuster. Na Whole Blood 156(H) 135 - 145 mmol/L [facility] Comment:Noted by instrument adjuster. K Whole Blood 5.5(H) 3.5 - 5.0 mmol/L [facility] Comment: Noted by instrument adjuster. Please note: Patients with WBC >100,000 may have falsely elevated Potassium levels. Contact the Clinical Chemistry Laboratory if there are any questions. ICa Whole Blood 1.03(L) 1.15 - 1.33 mmol/L [facility] Comment: Noted by instrument adjuster. Note: ??Total bilirubin higher than 20 mg/dL may lead to falsely low ionized calcium. CL Whole Blood 100 98 - 107 mmol/L [facility] Comment:Noted by instrument adjuster. Gluc Whole Bld 132 65 - 199 mg/dL [facility] Comment: Noted by instrument adjuster. Diabetes: >=200 mg/dL plus symptoms Lactate WB 1.0 0.5 - 2.2 mmol/L [facility] Comment:Noted by instrument adjuster. Blood Gas Source Venous [facility] Blood 02/17/2024 9:34 AM EDT 02/17/2024 9:34 AM EDT Hayder Graham MD POINT OF CARE TEST ORDERABLES [facility] [address] * (ABNORMAL) BLOOD GAS 2 ARTERIAL (02/17/2024 [...] OF CARE TEST ORDERABLES Performing Organization Address City/[facility]/ZIP Co de Phone Number [facility] [address] * POCT Glucose (02/17/2024 6:38 AM EDT) Glucose, POC 98 65 - 199 mg/dL [facility] Comment: Supplemental ranges: <140 mg/dL before meals <180 mg/dL all other times of the day Blood 02/17/2024 6:38 AM EDT 02/17/2024 6:38 AM EDT Hayder Graham MD POINT OF CARE TEST ORDERABLES Performing Organization Address [facility] Co de Phone Number [facility] [address] * Transesophageal Echo/OR (02/17/2024 6:33 AM EDT) [...] [facility] [...] RN) 0835 (Given - Provider: Jazlyn Maldonado, CLOBY) aspirin EC tablet 325 mg (CANCELED) 325 mg, Oral, DAILY, First dose on Sat02/18/24 at 0915, Until Discontinued, Routine 0821 (Given - Provider: Reilly Vincent RN) atorvastatin (Lipitor) tablet 10 mg 10 mg, Oral, DAILY, First dose on Sat02/17/24 at 1400, Until Discontinued, Routine 0821 (Given - Provider: Reilly Vincent RN) 09 (Given - Provider: Mishel Merrill, COLBY) 0836 (Given - Provider: Jalzyn Maldonado, COLBY) brimonidine (Alphagan) 0.2 % ophthalmic [...] Routine documented in this encounter Care Teams Evs Attendant Relationship Specialty Start Date End Date Aparna Jordan APRN PCP - General Family Medicine 10/21/23 05/26/24 documented as of this encounter
--- OUTSIDE RECORDS SUMMARY | 2024-10-06 10:51 | XMS_ITS | Encounter Summary ---
Author Organization [facility] [place] [address] Care Team Providers Care Investigation Manager Name Role Phone Vanessa Christian MAURI Primary Care Provider [phone] Reason for Visit * Auth/Cert (Routine) Specialty [...] GRAFT (WRVU 7.93) Zak Farmer MD [facility] CARDIOTHORACIC [place] [address] [facility] Referral ID Status Reason Start Date Expiration Date Visits Re quested Visits Authorized [id number] 1 1 Encounter Details Date Type Department Care Team (Late st Contact Info) Description 02/17/2024 7:35 AM EDT Anesthesia Event Main Operating Room [facility] [place] [id number] Roman York MD [facility] [place] [address] Anesthesia Record Procedure Summary Procedure Name Responsible [...] by Sadiq Woo RN PIV 02/17/24; 0715; qqus-pwy-[id number] catheter system; 18 gauge; cephalic vein (lateral [...] th e electric, gas, oil, or water [employer] threatened to shut off services in your [...] Procedure Summary Date: 02/17/24 Room / Location: [facility] OR [address] [place] [address] MAIN OR Anesthesia Start: 734 Anesthesia Stop: [...] shown include unfiled device data. Patient Location: [facility] Level of Consciousness: Sedated [...] mg documented in this encounter Care Teams Investigation Manager Relationship Specialty Start Date End Date Vanessa Christian APRN PCP - General Family Medicine 10/21/23 05/26/24 documented as of this encounter
--- OUTSIDE RECORDS SUMMARY | 2024-10-06 10:51 | XMS_ITS | Encounter Summary ---
Author Organization [facility] [place] [address] Care Team Providers Care Coffee Supervisor Name Role Phone Vanessa Christian APRN Primary Care Provider [phone] Encounter Details Date Type Department Care Team [...] on filedocumented in this encounter Care Teams Coffee Supervisor Relationship Specialty Start Date End Date Vanessa Christian APRN PCP - General Family Medicine 10/21/23 05/26/24 documented as of this encounter
--- OUTSIDE RECORDS SUMMARY | 2024-10-06 10:51 | XMS_ITS | Encounter Summary ---
[place] [address] Care Team Providers Care Rv Mechanic Name Role Phone Aparna Jordan MAURI Primary Care Provider [phone] Reason for Referral * Diagnostic Test (Routine) - New Request Specialty Diagnoses / Procedures Referred By Contac t Referred To Contact Cardiology Diagnoses S/P AVR Procedures Echocardiogram Transthoracic Neftali Menon PA [facility] CARDIOTHORACIC [place] [address] [facility] [place] [address] Referral ID Status Reason Start Date Expiration Date Visits Requested Visits Authorized [id number] New Request Specialty Service Requested 02/24/2024 02/23/2025 1 1 * Consultation (Routine) - Closed Specialty Diagnoses / Procedures Referred By Contac t Referred To Contact Cardiology Diagnoses S/P AVR Hayder Graham MD [facility] CARDIOTHORACIC [place] [address] Cardiac Rehab, [facility] [address] [place] [address] [place] [address] Referral ID Status Reason Start Date Expiration Date V isits Requested Visits Authorized [id number] Closed Consult, Test & Treat 02/24/2024 08/22/2024 36 36 * Home Health Care (Routine) - Closed Specialty Diagnoses / Procedures Referred By Sixto mendoza Referred To Contact Diagnoses S/P AVR Hayder Graham MD [facility] CARDIOTHORACIC [place] [address] Referral ID Status Reason Start Date Expiration Date V isits Requested Visits Authorized [id number] Closed Consult, Test & Treat 02/24/2024 08/22/2024 [...] MD [facility] CARDIOTHORACIC [place] [address] [facility] Referral ID Status Reason Start Date Expiration Date Visits Re quested Visits Authorized [id number] 1 1 Encounter Details Date Type Department Care Team (Latest Contact Info) Description 02/17/2024 5:43 AM EDT - 02/24/2024 11:23 AM EDT Hospital Encounter Heart and Vascular Unit Level 4 [place] [address] Hayder Graham MD [facility] CARDIOTHORACIC [place] [address] S/P AVR (Primary Dx); Aortic valve stenosis, etiology of cardiac valve disease unspecified Discharge Disposition: Home with VNA Social History Tobacco Use Types Packs/Day Years Used Date Smoking Tobacco: Former Cigarettes Smokeless Tobacco: Never Comments:Quit 15 + years ago Alcohol Use Standard Drinks/Week Comments Yes 0 (1 standard drink = 0.6 oz pur e alcohol) rare [facility] Utilities Answer Date Recorded In [...] Patient Age: 63 y.o. Birthdate: 1960 Language: Pakistani Race: White Ethnicity: Not nor Admit Date: 02/17/2024 Discharge Date: 02/24/24 Attending Physician: Hayder Graham MD Follow-up Recommendations for Providers: Please continue routine management of cardiovascular risk factors including blood pressure, lipids,glucose, etc. Please note any changes to medications. Patient to follow up with PCP, Aparna Jordan APRN, in 1-2 weeks. Patient to follow up with National Sales Associate, Neftali Ernandez MD , in 2 weeks. Patient to follow up with Cardiac Surgeon, Dr. Hayder Graham, with a chest x-ray, EKG, and Echo. Inpatient Provider Contact Information: [facility] Section of Cardiac Surgery [facility] [address] FAX [phone] Discharge Diagnoses (Hospital Problems) Primary Diagnoses: /CAD [...] insufficiency. He has glaucoma. He used to [employer] until about 15 years ago. He has undergone prior herniorrhaphy. 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 Major Procedures/Operations: 02/17/24 s/p avr/cabgx3 CABG x 3 JOSE->LAD SVG->dRCA SVG->OM1 EVH from LLE AVR with a 23 mm Inspiris Bioprosthesis Hospital Course: Karlos Garcia was admitted to [facility] on 02/17/2024 via the Same Day Program. [...] Hayder Graham and/or the Cardiac Surgery Physician Nitrator Operator Team may be reached at . [...] Please refer to the card with the [place] [employer] Guidelines for more information. You [...] Dr. Hayder Graham. You may use a [place] Track or treadmill but avoid any [...] friends, go to a movie, go to hinduism, etc. Heavy activities: No hunting, skiing, jogging, [...] should resume a low fat, low cholesterol, [place] [employer] Diet. Driving: No driving until [...] there is a lot of swelling, apply sajnana wraps during the day and remove at bedtime. Elevate your legs when you are sitting. MEDICATION REFILL REQUESTS - Please note that Cardiac Surgery will not maintain regular refill requests for your medications as these can change during and after your recovery while being managed by your PCP and/or National Sales Associate. For future medication refills, please refer to your PCP and/or National Sales Associate after your discharge from our service. Thank you REMOVE CHEST TUBE SUTURES ON OR AFTER 03/02/24 Home oxygen therapy: N/A Follow up appointments: You should follow up with your PCP, Aparna Jordan APRN, in 1-2 weeks. Our office will schedule an appointment with your National Sales Associate, Neftali Ernandez MD , in 2 weeks. You have an appointment with your Cardiac Surgeon, Dr. Hayder Graham, 4 weeks with a chest x-ray, EKG, and Echo before your appointment. Cardiac Rehabilitation: Karlos Garcia was seen regarding participation in the outpatient Phase 2Cardiac Rehabilitation at [facility]. The patient agrees to a referral to this program. The referral will be sent at discharge and the patient should be contacted by the Program within 1- 2 weeks from discharge. Future Appointments and Orders Future Orders Complete By Expires Echocardiogram Transthoracic [83895 CPT(R)] 03/26/2024 09/25/2024 Process Instructions: Scheduling Instructions: Questions: Where will study be performed?: [facility] Does the patient have Congenital Heart Disease?: Does patient require sedation?: Sedation rationale: XR Chest PA & Lateral (Generic) [95025 26603 Custom] 03/26/2024 09/25/2024 Process Instructions: Scheduling Instructions: Questions: Portable exam?: Reason for exam and clinical history: s/p avr/cabg Clinical information / jerome questions for radiologist: Stat read required?: Date of injury if applicable: Requested Time: Where will study be performed?: [facility] Radiology Referral to Cardiac Rehab [ARZ546 Custom] As directed Process Instructions: If no progress note charted, please enter Clinical details in comments. Scheduling Instructions: Questions: My question or request is: s/p AVR/CABG. Cardiac rehab at [facility]. Referral to Home Health [REF34 Custom] As directed Process Instructions: If no progress note charted, please enter Clinical details in comments. Scheduling Instructions: Comments: Please evaluate Karlos Garcia for admission to Home Health. [address] Phone Number: Date of : 1960 Inpatient DOCUMENTATION FOR VNA SERVICES (INCLUDING THOSE PATIENTS WITH MEDICARE COVERAGE REQUIRING HOME VNA SERVICES AND/OR HOSPICE SERVICES) PATIENT'S LOCATION: Karlos Garcia [address] Tasted Menu [phone] Delinquency Counselor's Name: self/family In discussion with the attending physician, it is certified that this patient is under their care and that they, or a Nurse Practitioner, or Physician Nitrator Operator who is working directly with them, [...] for services as follows: HOME HEALTH AGENCY: [facility]. [address] [place] [address] RN orders: Cardiopulmonary assessment, incisional assessment, assess [...] issues please call the Cardiology Office at [phone] FOR MEDICARE ONLY: (please delete this section [...] As above. Signed: NEFTALI MENON PA-C [facility] Section of Cardiac Surgery [facility] [place] [address] FAX [phone] Date: 02/24/2024 CC: Aparna Jordan, MAURI Jordan, Aparna Sherman APRN [address] [place] [address] documented in this encounter Discharge Instructions * [...] Hayder Graham and/or the Cardiac Surgery Physician Nitrator Operator Team may be reached at . [...] Please refer to the card with the [place] [employer] Guidelines for more information. You [...] Dr. Hayder Graham. You may use a [place] Track or treadmill but avoid any [...] friends, go to a movie, go to hinduism, etc. Heavy activities: No hunting, skiing, jogging, [...] should resume a low fat, low cholesterol, [place] [employer] Diet. Driving: No driving until [...] while being managed by your PCP and/or National Sales Associate. For future medication refills, please refer to your PCP and/or National Sales Associate after your discharge from our service. Thank you REMOVE CHEST TUBE SUTURES ON OR AFTER 03/02/24 Home oxygen therapy: N/A Follow up appointments: You should follow up with your PCP, Aparna Jordan APRN, in 1-2 weeks. Our office will schedule an appointment with your National Sales Associate, Neftali Ernandez MD , in 2 weeks. You have an appointment with your Cardiac Surgeon, Dr. Hayder Graham, 4 weeks with a chest x-ray, EKG, and Echo before your appointment. Cardiac Rehabilitation: Karlos Garcia was seen regarding participation in the outpatient Phase 2Cardiac Rehabilitation at [facility]. The patient agrees to a referral [...] 0600 and on the weekends please page [phone]. * Eric Barahona PA - 02/23/2024 9:27 [...] 0600 and on the weekends please page [phone]. * Tiffanie Owens PTA - 02/22/2024 2:48 [...] d/c for 10 days. 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 * Kelley Hinson, AUTOMATIC PROFILE SANDER OPERATOR - 02/21/2024 10:15 AM EDT Physical [...] d/c for 10 days. 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 * Kelley Hinson PTA - 02/20/2024 3:32 PM EDT 02/20/24 1032 Evaluation & Treatment Document Type contact Total Minutes, Physical Therapy 0 Comment, Session Not Performed Checked in w/ pt this PM for ongoing PT services, pt politely declined, stating he had been dealing w/ nausea all day, made plan to see him tomorrow morning, will f/u at that time Kelley Hinson PTA Pager: [phone] Physical Therapy Inpatient Rehab Department * Louisa [...] 0600 and on the weekends please page [phone]. * Maris Benavides, PT - 02/19/2024 11:22 [...] d/c for 10 days. 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 Precautions/Special Considerations: [...] outlined inthis evaluation. MARIS BENAVIDES, PT Pager: [phone] Physical Therapy Inpatient Rehabilitation Department Time IN / OUT: 7059-8640 Total Time: 38 (eval) minutes; * Antonio [...] 0600 and on the weekends please page [phone]. * Minnie Begum PA - 02/18/2024 8:25 [...] 0600 and on the weekends please page [phone]. * Kim Ha RCP - 02/17/2024 2:25 [...] plan since last visit. Hayder Graham MD [phone] Source Note - Hayder Graham MD - [...] insufficiency. He has glaucoma. He used to [employer] until about 15 years ago. He has [...] given written informed consent. Hayder Graham MD [phone] * Hayder Graham MD - 02/17/2024 7:00 [...] given written informed consent. Hayder Graham MD [phone] documented in this encounter Miscellaneous Notes * [...] for follow-up Home Health & Hospice, [address] [place] [address] Cardiac Rehab, [facility] [address] [place] [address] Transportation: family or friend will provide Functional status prior to admission: Independent Home Environment: Others in the home: alone. Current Living Arrangements: home/apartment/condo. Accessibility Concerns:a few steps to enter 1 floor home. Current Functional Ability: Assistive Person and Equipment DME used at home: none DME Needed at Discharge: N/A Patient is insured through: Primary Insurance: [employer] Payor: [facility] / Plan: [facility] PPO / Product Type: *No Product [...] pain managed with scheduled Tylenol. Worked with [employer]. Ambulated in the roque multiple times during [...] anticipated Patient is insured through: Primary Insurance: [employer] Payor: [facility] / Plan: [facility] PPO / Product Type: *No Product type* / Secondary Insurance: N/A Last Physical Therapy Recommendation: home with home health (Str coming to stay for a week or two upon d/c) with to be determined (owns rolling walker, shower seat) Plan for discharge is: Home w/ Services Outpatient Agency/Support Group Needs: Homecare agency Home Health Services: Physical Therapy, Registered Nurse Agency Referrals: [facility] [address] [address] Transportation: family or friend will provide Barriers to discharge: Discharge planning Plan going forward: Service Care Management will continue to follow and assist with discharge planning and coordination of care as indicated. Anticipated Date of Discharge: 02/22/2024 Rhett Bell RN RN/CM - Cellphone: [phone] Pager: [phone] Covering Service RN/CM * Plan of Care [...] - 02/19/2024 10:44 AM EDT [facility] Karlos Garcia was seen today regarding participation in the outpatient Phase 2 Cardiac Rehabilitation at [facility]. The patient agrees to a referral [...] 180 days) Any patient receiving care in [place] must abide by [place] law. The hierarchy [...] (i) The agent with financial power of senior data quality analyst or a conservator appointed in accordance with [...] In the past 12 months has the [employer], gas, oil, or water [employer] threatened to shut off services in your [...] as: [address] [facility] [address] Physical address: [address] [facility], [address] Social & Family Supports: All names listed [...] Information: none noted Health/Prescription Coverage: Primary Insurance: [facility] Payor: [facility] / Plan: [facility] PPO / Product Type: *No Product type* / Secondary Insurance: N/A ; Prescription Coverage: Yes Preferred Pharmacy: [id number] [facility] & [address] [address] Status: Patient is a : No Primary Care Provider confirmed: Aparna Jordan, SUPPORT SERVICES MANAGER [phone] Patient/Caregiver Goals of Treatment: dc to home Potential Needs for Transition of Care: home health care Agency Referrals: I have met with the patient to: discuss discharge planning needs. provide the [facility], Office of Care Management letter from the Water Commissioner pertaining to rehab referrals. provide a letter describing our affiliations within the [facility] and educate about their right to choose where referrals are sent. provide a list of Home Health Agencies / Durable Medical Equipment vendors which serve their preferred geographic area. provided patient with [facility] Star Quality Rating handout. They have requested referrals to: [facility]. [address] [place] [address] Note routed to a Transportation Dispatcher who will communicate referrals to facilities and [...] Reina Greene RN CM, BSN, CMGT- Ext [phone] * Plan of Care - Binta Trinidad [...] Operative Note Patient Name: Karlos Garcia DOB: [id number] MR#: [id number] Case Date: 02/17/2024 Surgeon: Surgeon(s) and Role: * Hayder Graham MD - Primary * Neftali Menon PA - Physician Nitrator Operator Preoperative diagnosis: CAD Postoperative diagnosis: CAD, [...] - 02/17/2024 8:20 AM EDT [facility] Operative Note Patient Name: Karlos Garcia : [id number] MR#: [id number] Case Date: 02/17/2024 Surgeon: Surgeons and Role: * Hayder Graham MD - Primary * Neftali Menon PA - Physician Nitrator Operator Preoperative diagnosis: CAD Postoperative diagnosis: CAD, [...] mL Drains: Mediastinal and Left pleural Disposition: [facility] Procedure Description: The patient was brought to [...] Aortic Valve Open W Cardiopulmonary Bypass Homogrf/Stent (90332) Yes 02/17/2024 7:28 AM EDT CAD Cabg, Artery-Vein, Two (55948) Yes 02/17/2024 7:28 AM EDT CAD Cabg, Arterial, Single (47861) Yes 02/17/2024 7:28 AM EDT CAD Endoscopy W/Video-Asst Vein Brandon, Cabg (51516) Yes 02/17/2024 7:28 AM EDT CAD POCT [...] MD CHEMISTRY ORDERABLE S [facility] [place] [address] * (ABNORMAL) Basic Metabolic Panel (non-fasting) (02/23/2024 [...] Carpio MD CHEMISTRY ORDERABLES [facility] [place] [address] * Potassium (02/22/2024 4:30 AM EDT) [facility] Signature Potassium 3.5 3.5 - 5.0 mmol/L [facility] [...] MD CHEMISTRY ORDERABLE S [facility] [place] [address] * (ABNORMAL) Basic Metabolic Panel (non-fasting) (02/21/2024 [...] CHEMISTRY ORDERABLES Performing Organization Address City/[facility]/ZIP Co de Phone Number [facility] [place] [address] * Lactate, whole blood, send to lab ([facility]) (02/21/2024 9:45 AM EDT) [facility] Lactate WB 2.0 0.5 - 2.2 mmol/L [facility] Blood 02/21/2024 9:45 AM EDT 02/21/2024 9:52 AM EDT Narrative Resulting Agency Comment Spec In Lab Hayder Graham MD CHEMISTRY ORDERABLE S Performing Organization Address [facility] Co de Phone Number [facility] [place] [address] * (ABNORMAL) Hepatic Function Panel (02/21/2024 9:45 AM EDT) [facility] Protein, Total 5.7(L) 6.1 - 8.0 [...] ORDERABLE S Performing Organization Address City/[facility]/ZIP Co de Phone Number [facility] [place] [address] * Lipase (02/21/2024 9:45 AM EDT) [facility] Lipase 56 0 - 60 unit/L [facility] Blood 02/21/2024 9:45 AM EDT 02/21/2024 9:52 AM EDT Narrative Resulting Agency Comment Spec In Lab Hayder Graham MD CHEMISTRY ORDERABLE S Performing Organization Address [facility] Co de Phone Number [facility] [place] [address] * Amylase (02/21/2024 9:45 AM EDT) Amylase 69 28 - 100 unit/L [facility] Blood 02/21/2024 9:45 AM EDT 02/21/2024 9:52 AM EDT Narrative Resulting Agency Comment Spec In Lab Hayder Graham MD CHEMISTRY ORDERABLE S Performing Organization Address [facility] de Phone Number [facility] [place] [address] * Potassium (02/21/2024 3:08 AM EDT) [facility] Potassium 3.8 3.5 - 5.0 mmol/L [...] CHEMISTRY ORDERABLE S Performing Organization Address [facility] Co de Phone Number [facility] [place] [address] * XR Chest PA & Lateral (Generic) (02/20/2024 10:19 AM EDT) WORKSTATION ID [id number] DH RAD Anatomical Region Laterality Modality Chest [...] signed by: Rogerio Cruz MD, [facility] ??([phone]), at 02/20/2024 1:11 PM Narrative 02/20/2024 1:11 PM EDT EXAMINATION: XR CHEST PA AND LATERAL (GENERIC) CLINICAL HISTORY: s/p AVR/CABGx3 TECHNIQUE: PA and lateral views of the chest COMPARISON: 02/17/2024 FINDINGS: Support devices: Interval removal of Savage-Kaila catheter, endotracheal tube and mediastinal chest tubes The cardiac silhouette is stable status post median sternotomy, CABG and aortic valve replacement. There are small pleural effusions. No pneumothorax. Procedure Note Rogerio Cruz MD - 02/20/2024 EXAMINATION: XR CHEST PA AND LATERAL (GENERIC) CLINICAL HISTORY: s/p AVR/CABGx3 TECHNIQUE: PA and lateral views of the chest COMPARISON: 02/17/2024 FINDINGS: Support devices: Interval removal of Savage-Kaila catheter, endotracheal tubeand mediastinal chest tubes The [...] [facility] Plat estimate Decreased [facility] RBC Morphology Normal [facility] Blood 02/20/2024 4:23 AM EDT 02/20/2024 4:42 AM EDT Narrative Resulting Agency Comment Spec In Lab Minnie FRENCH HEMATOLOGY CECILIO ALEMAN [facility] [place] [address] * (ABNORMAL) Differential, Automated (02/20/2024 4:23 AM EDT) [facility] Neutrophil % 81.7 % [facility] Neutrophil Absolute 10.37(H) 1.70 - 6.10 x10(3)/mc L [facility] Lymph % 7.4 % [facility] Lymphocytes Abs 0.9 0.9 - 3.2 x10(3)/mc L [facility] Monocyte % 9.7 % [facility] Monocyte Abs 1.2(H) 0.3 - 0.9 x10(3)/mc L [facility] Eos % 0.1 % [facility] Eosinophils Abs 0.0 0.0 - 0.4 x10(3)/mc L [facility] Basophil % 0.2 % ST. [...] FRENCH HEMATOLOGY CECILIO ALEMAN [facility] [place] [address] * (ABNORMAL) Hemogram (02/20/2024 4:23 AM EDT) [...] [facility] NRBC% auto 0.0 % [facility] NRBC Absolute 0.000 0.000 - 0.000 x10(3)/mc L [facility] Blood 02/20/2024 4:23 AM EDT 02/20/2024 4:42 AM EDT Narrative Resulting Agency Comment Spec In Lab Minnie FRENCH HEMATOLOGY CECILIO ALEMAN [facility] [place] [address] * (ABNORMAL) Basic Metabolic Panel (non-fasting) (02/20/2024 [...] CHEMISTRY ORDERABLE S Performing Organization Address [facility] Co de Phone Number [facility] [place] [address] * Potassium (02/19/2024 3:57 AM EDT) Potassium [...] CHEMISTRY ORDERABLE S Performing Organization Address [facility] Co de Phone Number [facility] [place] [address] * POCT Glucose (02/18/2024 8:24 AM EDT) Glucose, POC 157 65 - 199 mg/dL [facility] Comment: Supplemental ranges: <140 mg/dL before meals <180 mg/dL all other times of the day Blood 02/18/2024 8:24 AM EDT 02/18/2024 8:24 AM EDT Hayder Graham MD POINT OF CARE TEST ORDERABLES [facility] [place] [address] * Scan, Peripheral Blood (02/18/2024 1:40 AM EDT) Pathologist [facility] Plat estimate Decreased [facility] RBC Morphology Normal [facility] Blood 02/18/2024 1:40 AM EDT 02/18/2024 1:56 AM EDT Narrative Resulting Agency Comment Spec In Lab Neftali FRENCH HEMATOLOGY ORDER OLE Performing Organization Address City/[facility]/ZIP Co de Phone Number [facility] [place] [address] * (ABNORMAL) Differential, Automated (02/18/2024 1:40 AM EDT) [facility] Neutrophil % 87.1 % [facility] Neutrophil Absolute 15.03(H) 1.70 - 6.10 x10(3)/mc L [facility] Lymph % 3.0 % [facility] Lymphocytes Abs 0.5(L) 0.9 - 3.2 x10(3)/mc L [facility] Monocyte % 9.1 % [facility] Monocyte Abs 1.6(H) 0.3 - 0.9 x10(3)/mc L [facility] Eos % 0.0 % [facility] Eosinophils Abs 0.0 0.0 - 0.4 x10(3)/mc L [facility] Basophil % 0.2 % ST. [...] FRENCH HEMATOLOGY ORDER OLE [facility] [place] [address] * (ABNORMAL) Hemogram (02/18/2024 1:40 AM EDT) White Blood Cell 17.2(H) 4.0 - 9.5 x10(3)/ L [facility] Red Blood Cell 4.71 4.58 - 5.54 x10(6)/ L [facility] Hemoglobin 13.7 13.7 [...] [facility] NRBC% auto 0.0 % [facility] NRBC Absolute 0.000 0.000 - 0.000 x10(3)/ L [facility] Blood 02/18/2024 1:40 AM EDT 02/18/2024 1:56 AM EDT Narrative Resulting Agency Comment Spec In Lab Neftali FRENCH HEMATOLOGY ORDER OLE [facility] [place] [address] * (ABNORMAL) Basic Metabolic Panel (non-fasting) (02/18/2024 [...] ORDERABLE S Performing Organization Address City/[facility]/ZIP Co de Phone Number [facility] [place] [address] * (ABNORMAL) Troponin (02/18/2024 1:40 AM EDT) [...] can be found in the [facility] Test Catalog Troponin - [facility] Test Catalog Reference: Fourth [place] Definition of Myocardial Infarction. Journal of the [place] [employer] 2018;72:8597-5009 Blood 02/18/2024 1:40 AM EDT 02/18/2024 1:56 AM EDT Narrative Resulting Agency Comment Spec In Lab Hayder Graham MD CHEMISTRY ORDERABLE S [facility] [place] [address] * POCT Glucose (02/17/2024 8:13 PM EDT) Glucose, POC 142 65 - 199 mg/dL [facility] Comment: Supplemental ranges: <140 mg/dL before meals <180 mg/dL all other times of the day Blood 02/17/2024 8:13 PM EDT 02/17/2024 8:13 PM EDT Hayder Graham MD POINT OF CARE TEST ORDERABLES Performing Organization Address [facility] Co de Phone Number [facility] [place] [address] * POCT Glucose (02/17/2024 5:42 PM EDT) Glucose, POC 160 65 - 199 mg/dL [facility] Comment: Supplemental ranges: <140 mg/dL before meals <180 mg/dL all other times of the day Blood 02/17/2024 5:42 PM EDT 02/17/2024 5:42 PM EDT Hayder Graham MD POINT OF CARE TEST ORDERABLES Performing Organization Address [facility]/ZIP Co de Phone Number [facility] [place] [address] * Hemoglobin (02/17/2024 5:42 PM EDT) Hemoglobin 13.7 13.7 - 16.5 g/dL [facility] Blood 02/17/2024 5:42 PM EDT 02/17/2024 6:10 PM EDT Narrative Resulting Agency Comment Spec In Lab Hayder Graham MD HEMATOLOGY ORDERABL ES [facility] [place] [address] * Potassium (02/17/2024 5:42 PM EDT) Potassium [...] MD CHEMISTRY ORDERABLE S Performing Organization Address City/State/[facility] Co de Phone Number [facility] [place] [address] * (ABNORMAL) BLOOD GAS 2 ARTERIAL (02/17/2024 [...] [facility] FIO2 Art 40 % [facility] PF Ratio Art 195 [facility] Blood 02/17/2024 4:18 PM EDT 02/17/2024 4:18 PM EDT Hayder Graham MD POINT OF CARE TEST ORDERABLES [facility] [place] [address] * XR Chest One View (02/17/2024 1:44 PM EDT) [employer] WORKSTATION ID [id number] DH RAD Anatomical Region Laterality Modality Chest N/A Digital Radiogra phy Impressions 02/17/2024 2:12 PM EDT 1. ??No definite pleural fluid collection or pneumothorax. 2. ??Right IJ Savage-Kaila catheter tip terminates in a descending branch [...] your imaging first. ? Electronically signed by: Dnezel Hankins MD, [facility] ??([phone]), at 02/17/2024 2:12 PM Narrative 02/17/2024 2:12 PM EDT EXAMINATION: XR CHEST ONE VIEW CLINICAL HISTORY: s/p avr/cabg eval effusions TECHNIQUE: 1 view of the chest COMPARISON: Chest x-ray 01/09/2024, chest CT 02/03/2024 FINDINGS: ET tube tip terminates 5.2 cm above the carlos. Right IJ Savage-Kaila catheter tip terminates in a descending branch [...] 5.2 cm above the carlos. Right IJ Savage-Ganzcatheter tip terminates in a descending branch of [...] fluid collection or pneumothorax. 2. Right IJ Savage-Kaila catheter tip terminates in a descending branch [...] signed by: Denzel Hankins MD, [facility]([phone]), at 02/17/2024 2:12 PM Hayder Graham MD [...] [facility] FIO2 Art 100 % [facility] PF Ratio Art 320 [facility] Blood 02/17/2024 1:31 PM EDT 02/17/2024 1:31 PM EDT Hayder Graham MD POINT OF CARE TEST ORDERABLES [facility] [place] [address] * (ABNORMAL) Coox2 (02/17/2024 1:21 PM EDT) [...] CARE TEST ORDERABLES [facility] [place] [address] * (ABNORMAL) BLOOD GAS 2 ARTERIAL (02/17/2024 [...] CARE TEST ORDERABLES Performing Organization Address [facility]/ZIP Co de Phone Number [facility] [place] [address] * (ABNORMAL) Fibrinogen (02/17/2024 12:10 PM EDT) [...] ORDERABLE S Performing Organization Address City/[facility]/ZIP Co de Phone Number [facility] [place] [address] * (ABNORMAL) Thrombin time (02/17/2024 12:10 PM [...] HEMATOLOGY ORDERABLE S Performing Organization Address [facility] Co de Phone Number [facility] [place] [address] * APTT (02/17/2024 12:10 PM EDT) Partial [...] HEMATOLOGY ORDERABLE S Performing Organization Address [facility] Co de Phone Number [facility] [place] [address] * (ABNORMAL) Prothrombin Time (02/17/2024 12:10 PM [...] HEMATOLOGY ORDERABLE S [facility] [place] [address] * (ABNORMAL) Hemogram (02/17/2024 12:10 PM EDT) [...] RDW Standard Deviation 40.2 36.0 - 45.0 [facility] RDW coefficient of variation 12.8 11.4 - 13.8 % [facility] Mean Platelet Volume 9.5 7.6 - 12.9 fL [facility] NRBC% auto 0.0 % [facility] NRBC Absolute 0.000 0.000 - 0.000 x10(3)/mc L [facility] Blood 02/17/2024 12:1 0 PM EDT 02/17/2024 12:19 PM EDT Narrative Resulting Agency Comment Spec In Lab Tara York MD HEMATOLOGY ORDERABLE S [facility] [place] [address] * (ABNORMAL) BLOOD GAS 2 ARTERIAL (02/17/2024 [...] mmol/L [facility] Comment: Noted by survey instrument operator. [...] OF CARE TEST ORDERABLES [facility] [place] [address] * (ABNORMAL) BLOOD GAS 2 ARTERIAL (02/17/2024 [...] mmol/L [facility] Comment: Noted by survey instrument operator. [...] CARE TEST ORDERABLES Performing Organization Address [facility]/ZIP Co de Phone Number [facility] [place] [address] * (ABNORMAL) Hemoglobin and Hematocrit, blood (02/17/2024 [...] MD HEMATOLOGY ORDERABL ES Performing Organization Address City/[facility]/[place] [address] * (ABNORMAL) Platelet count (02/17/2024 11:04 AM EDT) Platelet 106(L) 145 - 357 x10(3)/mc L [facility] Immature Plt % 1.6 0.0 - 7.4 % [facility] Comment: Limitation of the Immature Platelet Fraction (IPF)-May be less reliable when the platelet count is less than 37e982/uL due to statistical imprecision. The IPF value [...] in a decreased state of production. References: [employer] The Clinical Value of the Immature Platelet Fraction (IPF) in Cell Recovery Document Number [id number] 03/2011 [employer] The Role of the Immature Platelet Fraction (IPF) in the Differential Diagnosis of Thrombocytopenia, Document MKT-[id number] V002/15/14 Blood 02/17/2024 11:0 4 AM EDT 02/17/2024 11:12 AM EDT Narrative Resulting Agency Comment Spec In Lab Hayder Graham MD HEMATOLOGY ORDERABL ES Performing Organization Address City/State/[facility] Co de Phone Number [facility] [place] [address] * (ABNORMAL) Fibrinogen (02/17/2024 11:04 AM EDT) [...] MD HEMATOLOGY ORDERABL ES [facility] [place] [address] * (ABNORMAL) BLOOD GAS 2 ARTERIAL (02/17/2024 [...] OF CARE TEST ORDERABLES [facility] [place] [address] * (ABNORMAL) BLOOD GAS 2 ARTERIAL (02/17/2024 [...] OF CARE TEST ORDERABLES [facility] [place] [address] * Surgical Pathology Report (02/17/2024 10:01 AM EDT) Final Diagnosis [id number] ? Location: [facility]; [facility]; The signing pathologist has (i) examined the relevant preparation(s) for the specimen(s) and (ii) rendered or confirmed the diagnosis(es). . ?Surgical Pathology DIAGNOSIS Aortic valve leaflets, excision: Valve leaflets with myxoid degeneration, nodular fibrosis and dystrophic calcifications. Electronically signed by: ?Livier Montoya MD Verified: ??02/24/2024 13:49 ??Pathologist Performed at: ??[facility], [place] [address] Water Commissioner: Job Brewer MD, FCAP, ??IA Certificate: [id number] SPECIMEN(S) SUBMITTED A - Aortic Valve Leaflets, [...] Sections Processing Blocks submitted for decalcification: A1. Butadiene Converter Helper sections in 1 cassette labeled A1. ??ajw 02/24/2024 1:49 PM EDT [facility] AORTIC STRUCTURE / Unknown 02/17/2024 10:01 AM EDT 02/17/2024 10:01 AM EDT Hayder Graham MD PATHOLOGY/CYTOLOGY ORDERABLES [facility] [place] [address] * Specimen to Pathology (02/17/2024 10:01 AM EDT) AP Specimen 02/17/2024 10:0 1 AM EDT 02/17/2024 10:01 AM EDT Narrative [facility] - 02/17/2024 10:01 AM EDT Specimen requisition ordered. ??Separate Pathology report to follow Hayder Graham MD PATHOLOGY/CYTOLOGY ORDERABLES Performing Organization Address City/[facility]/ZIP Co de Phone Number [facility] [place] [address] * (ABNORMAL) BLOOD GAS 2 ARTERIAL (02/17/2024 [...] OF CARE TEST ORDERABLES [facility] [place] [address] * (ABNORMAL) BLOOD GAS 2 VENOUS (02/17/2024 9:34 AM EDT) pH, Venous 7.22(Criti marquez) 7.32 - 7.42 [facility] Comment:Noted by survey instrument operator. PCO2, Venous 43 41 - 51 mmHg [facility] Comment:Noted by survey instrument operator. PO2, Venous 57(H) 25 - 40 mmHg [facility] Comment:Noted by survey instrument operator. Bicarbonate, Venous 17.1 mmol/L [facility] Comment:Noted by survey instrument operator. Base Excess, Venous -10.6 mmol/L [facility] Comment:Noted by survey instrument operator. Hgb Blood Gas 11.2(L) 13.7 - 16.5 g/dL [facility] Comment:Noted by survey instrument operator. Oxyhemoglobin, Venous 86.5 % [facility] Comment:Noted by survey instrument operator. Carboxyhemoglob in, Venous 0.3 % [facility] Comment: Noted by survey instrument operator. Nonsmokers: 0.5-1.5% COHB Smokers: Variable, but usually less than 10% Toxic: 20-30% COHB Lethal: Greater than 60% COHB Methemoglobin, Venous 0.0 <=1.5 % [facility] Comment:Noted by survey instrument operator. Na Whole Blood 156(H) 135 - 145 mmol/L [facility] Comment:Noted by survey instrument operator. K Whole Blood 5.5(H) 3.5 - 5.0 mmol/L [facility] Comment: Noted by survey instrument operator. Please note: Patients with WBC >100,000 may have falsely elevated Potassium levels. Contact the Clinical Chemistry Laboratory if there are any questions. ICa Whole Blood 1.03(L) 1.15 - 1.33 mmol/L [facility] Comment: Noted by survey instrument operator. Note: ??Total bilirubin higher than 20 mg/dL may lead to falsely low ionized calcium. CL Whole Blood 100 98 - 107 mmol/L [facility] Comment:Noted by survey instrument operator. Gluc Whole Bld 132 65 - 199 mg/dL [facility] Comment: Noted by survey instrument operator. Diabetes: >=200 mg/dL plus symptoms Lactate WB 1.0 0.5 - 2.2 mmol/L [facility] Comment:Noted by survey instrument operator. Blood Gas Source Venous [facility] Blood 02/17/2024 9:34 AM EDT 02/17/2024 9:34 AM EDT Hayder Graham MD POINT OF CARE TEST ORDERABLES [facility] [place] [address] * (ABNORMAL) BLOOD GAS 2 ARTERIAL (02/17/2024 [...] CARE TEST ORDERABLES Performing Organization Address [facility] Co de Phone Number [facility] [place] [address] * POCT Glucose (02/17/2024 6:38 AM EDT) Glucose, POC 98 65 - 199 mg/dL [facility] Comment: Supplemental ranges: <140 mg/dL before meals <180 mg/dL all other times of the day Blood 02/17/2024 6:38 AM EDT 02/17/2024 6:38 AM EDT Hayder Graham MD POINT OF CARE TEST ORDERABLES Performing Organization Address [facility] Phone Number [facility] [place] [address] * Transesophageal Echo/OR (02/17/2024 6:33 AM EDT) [...] [facility] [...] dose on Sat02/17/24 at 1400, Until Discontinued, [place] teeth and / or gums. Scan the CHG vial in the [employer] Q-Care Oral Care Kit from floor stock. Ventilator-associated pneumonia prophylaxis For use in ICU/Critical care locations ONLY. Obtain kit from Floor Stock location. Scan CHG vial in the [employer] Q-Care Oral Care Kit, Routine Given 02/17/2024 [...] at 50% of previous rate. Call warehouse consultant if goal not achieved at maximum rate. [...] PHENYLephrine and/or vasopressin ineffective. Call pager # [phone] if initiated. Titrate to keep systolic blood [...] L/min/M2. Maximum volume 2 L. Call warehouse consultant for additional fluid orders: pager #[phone]. Rate/Dose Verify 02/18/2024 8:00 AM EDT 1 mL/hr 1 mL/hr Rate/Dose Verify 02/18/2024 6:00 AM EDT 1 mL/hr 1 mL/hr Rate/Dose Verify 02/18/2024 4:00 AM EDT 1 mL/hr 1 mL/hr sodium chloride 0.9% infusion 10-30 mL/hr, Intravenous, DAILY PRN, Starting on Sat02/17/24 at 1307, Until Sat02/18/24 at 0835, Side port TKO rate, per [facility] nursing protocol. Rate/Dose Verify 02/17/2024 8:00 PM [...] Routine documented in this encounter Care Teams Rv Mechanic Relationship Specialty Start Date End Date Aparna Jordan APRN PCP - General Family Medicine 10/21/23 05/26/24 documented as of this encounter
--- OUTSIDE RECORDS SUMMARY | 2024-10-06 10:52 | XMS_ITS | Encounter Summary ---
Author Organization [facility] [place] [address] Care Team Providers Care Senior Product Marketing Manager Name Role Phone Vanessa Christian APRN Primary Care Provider [phone] Encounter Details Date Type Department Care Team (Late st Contact Info) Description 10/21/2023 Abstract Cardiology at [address] [place] [address] Adam Mayes RN Social History [...] filedocumented in this encounter Care Teams Senior Product Marketing Manager Relationship Specialty Start Date End Date Vanessa Christian APRN PCP - General Family Medicine 10/21/23 05/26/24 documented as of this encounter
--- OUTSIDE RECORDS SUMMARY | 2024-10-06 10:52 | XMS_ITS | Encounter Summary ---
[place] [address] Care Team Providers Care Chamber Magistrate Name Role Phone Victor M Lafleur MD Primary Care Provider [phone] Reason for Visit * Reason Onset Date Comments Referral 09/20/2023 Encounter Details Date Type Department Care Team (Late st Contact Info) Description 09/20/2023 Telephone Cardiology at [address] [address] Karen Billy, television installer Social History Tobacco Use Types Packs/Day [...] on filedocumented in this encounter Care Teams Chamber Magistrate Relationship Specialty Start Date End Date Victor M Lafleur MD PCP - General 10/02/13 10/20/23 documented as of this encounter
--- OUTSIDE RECORDS SUMMARY | 2024-10-06 10:52 | XMS_ITS | Encounter Summary ---
Author Organization [facility] [place] [address] Care Team Providers Care Forgesmith Name Role Phone Vanessa Christian APRN Primary Care Provider [phone] Encounter Details Date Type Department Care Team (Late st Contact Info) Description 10/21/2023 Abstract Cardiology at [address] [place] [phone] Adam Mayes RN Social History Tobacco Use [...] on filedocumented in this encounter Care Teams Forgesmith Relationship Specialty Start Date End Date Vanessa Christian APRN PCP - General Family Medicine 10/21/23 05/26/24 documented as of this encounter
--- OUTSIDE RECORDS SUMMARY | 2024-10-06 10:52 | XMS_ITS | Encounter Summary ---
Author Organization [facility] [place] [address] Care Team Providers Care Splicing Machine Operator Name Role Phone Vanessa Christian Lane DOTSON Primary Care Provider [phone] Encounter Details Date Type Department Care Team (Late st Contact Info) Description 01/09/2024 2:30 PM EDT Clinical Support Same Day at [facility] [place] [id number] Social History Tobacco Use Types Packs/Day Years Used Date Smoking Tobacco: Former Cigarettes Smokeless Tobacco: Never Comments:Quit 15 + years ago Alcohol Use Standard Drinks/Week Comments Yes 0 (1 standard drink = 0.6 oz pur e alcohol) rare [facility] Inpatient Questions Answer Date Recorded Prevent [...] you tube link for a video about [facility] cardiac surgery. Instructed to bring [...] type and screen performed while in the [facility]. Sent to Radiology for chest x-ray. Special medication instructions: None Procedure date: not booked. Darian documented in this encounter Plan of Treatment Not on file documented as of this encounter Visit Diagnoses Not on filedocumented in this encounter Care Teams Splicing Machine Operator Relationship Specialty Start Date End Date Vanessa Christian APRN PCP - General Family Medicine 10/21/23 05/26/24 documented as of this encounter
--- OUTSIDE RECORDS SUMMARY | 2024-10-06 10:52 | XMS_ITS | Encounter Summary ---
Author Organization [facility] [place] [address] Care Team Providers Care Senior Talent Acquisition Specialist Name Role Phone Vanessa Christian APRN Primary Care Provider [phone] Encounter Details Date Type Department Care Team [...] filedocumented in this encounter Care Teams Senior Talent Acquisition Specialist Relationship Specialty Start Date End Date Vanessa Christian APRN PCP - General Family Medicine 10/21/23 05/26/24 documented as of this encounter
--- OUTSIDE RECORDS SUMMARY | 2024-10-06 10:52 | XMS_ITS | Encounter Summary ---
Author Organization [facility] [place] [address] Care Team Providers Care Gis Programmer Name Role Phone Vanessa Christian APRN Primary Care Provider [phone] Encounter Details Date Type Department Care Team (Late st Contact Info) Description 12/26/2023 Notes Only Cardiology at [address] [place] [address] Neftali Ernandez MD [facility] [place] [address] Social History Tobacco Use Types Packs/Day Years [...] images reviewed from [facility]. Indeed, the aortic valve appears severely stenotic. Cannotrule out bicuspid valve documented in this encounter Plan of Treatment Not on file documented as of this encounter Visit Diagnoses Not on filedocumented in this encounter Care Teams Gis Programmer Relationship Specialty Start Date End Date Vanessa Christian APRN PCP - General Family Medicine 10/21/23 05/26/24 documented as of this encounter
--- OUTSIDE RECORDS SUMMARY | 2024-10-06 10:52 | XMS_ITS | Encounter Summary ---
Author Organization [facility] [place] [address] Care Team Providers Care Felt Coverer Name Role Phone Vanessa Christian APRN Primary Care Provider [phone] Encounter Details Date Type Department Care Team (Late st Contact Info) Description 01/10/2024 Orders Only [facility] [place] [phone] Lawson Napoles PA [facility] [place] [address] Screening for cardiovascular condition; Aortic valve stenosis, [...] unspecified documented in this encounter Care Teams Felt Coverer Relationship Specialty Start Date End Date Vanessa Christian APRN PCP - General Family Medicine 10/21/23 05/26/24 documented as of this encounter
--- OUTSIDE RECORDS SUMMARY | 2024-10-06 10:52 | XMS_ITS | Encounter Summary ---
Author Organization [facility] [place] [address] Care Team Providers Care Speech And Hearing Clinic Director Name Role Phone Victor M Lafleur MD Primary Care Provider [phone] Encounter Details Date Type Department Care Team (Late st Contact Info) Description 09/26/2023 Abstract Cardiology at [address] [address] Karen Billy, RN Nonrheumatic aortic [...] face documented in this encounter Care Teams Speech And Hearing Clinic Director Relationship Specialty Start Date End Date Victor M Lafleur MD PCP - General 10/02/13 10/20/23 documented as of this encounter
--- OUTSIDE RECORDS SUMMARY | 2024-10-06 10:52 | XMS_ITS | Encounter Summary ---
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 [address] Zak Farmer MD [facility] CARDIOTHORACIC [place] [address] Referral ID Status Reason Start Date Expiration Date V isits Requested Visits Authorized [id number] Closed Consult, Test & Treat 10/21/2023 10/20/2024 1 1 Encounter Details Date Type Department Care Team (Late st Contact Info) Description 01/09/2024 1:40 PM EDT Office [place] [address] Zak Farmer MD [facility] CARDIOTHORACIC [place] [address] Nonrheumatic aortic valve stenosis Social [...] office. Best personal regards, Zak Farmer MD [phone] In aggregate 55 minutes were spent evaluating [...] Dave MD, [facility] ([phone]), at 01/09/2024 3:11 PM Narrative 01/09/2024 3:11 [...] Toby Dave MD, [facility]([phone]), at 01/09/2024 3:11 PM Zak Farmer MD [...] CHEMISTRY ORDERABLE S [facility] [place] [place] [address] * Hepatic Function Panel (01/09/2024 2:58 PM [...] Organization Address [facility] Co de Phone Number [facility] [place] [place] [address] * Prothrombin Time (01/09/2024 2:58 PM EDT) [...] Organization Address [facility] Co de Phone Number [facility] [place] [address] * Type and Screen Future Surgery, [facility]) (01/09/2024 2:58 PM EDT) ABORH Type O NEGATIVE [facility] Patient BB History Not Found [facility] Expires at [phone] on: 02-20-2024 [facility] Ab Screen Interp Negative [facility] Blood 01/09/2024 2:58 PM EDT 01/09/2024 2:58 PM EDT Narrative Resulting Agency Comment Spec In Lab Zak Farmer MD [facility]LOOD [facility] LAB ORDE ASH Performing Organization Address City/State/[facility] Co de Phone Number [facility] [place] [address] documented in this encounter Visit Diagnoses Diagnosis Nonrheumatic aortic valve stenosis Aortic valve disorders Nonrheumatic aortic valve stenosis Aortic valve disorders documented in this encounter Care Teams Fancy Sewer Relationship Specialty Start Date End Date Vanessa Christian, JANITOR CLEANER PCP - General Family Medicine 10/21/23 05/26/24 documented as of this encounter
--- OUTSIDE RECORDS SUMMARY | 2024-10-06 10:52 | XMS_ITS | Data Portability ---
Author Organization [place] - [facility] Address [address] [place] [address] Care Team Providers Care Depot Agent Name Role Phone APARNA JORDAN Primary Care Provider [phone] SOFIA MCALLISTER Dentist Assessment No assessment recorded. Plan of Treatment Reminders Order Date Submit Date Provider Last Modified By Organization Details Last Modified Time Details Appointments None recorded . Lab magnesiu m, serum or plasma 024 12/18/19 24 [email or web address] [facility] (Registration ), [address] [place] [address] [place], [address], 4 14:25:25 BMP, serum or plasma 024 12/18/19 24 [email or web address] [facility] (Registration ), [address] [place] [address] [place], [address], 4 14:25:24 Referral None recorded . Procedures None recorded . Surgeries None recorded . Imaging None recorded . Medication Orders None recorded . Patient TargetsNo targets recorded. Patient Instructions Encounter Date Encounter Id Patient Instructions Last Modified By Organization Details Last Modified Time 09/19/2023 [id number] SCHEDULE FOLLOW UP IN 3 MONTHS IF YOU DONT HEAR FROM THE CARDIOLOGY DEPT THIS WEEK CALL [facility] NEEDLE LOOM OPERATOR HELPER AND LET THEM KNOW IF YOUR BREATHING GETS WORSE- GO TO THE ER, DONT OVER DO THINGS PHYSICALLY EXPECT A CALL FROM SARA ZAFAR RE: UPDATING YOUR POWER OF FUEL ATTENDANT (NEED 2 WITNESSED SIGNATURES) Not available 09/19/2023 09:25:07 12/18/2023 [id number] Karlos: expect a call from [place] [facility] [place] [facility] [place] at [...] 9.3 mg/dL 8.5-10 .1 normal Not Available [address] [place], [address] 12/18/2023 17:09:55 12/18/19 24 12/18/2023 LASIC METAB OLIC PANEL glucose 90 mg/dL 74-106 normal Not Available Baljit montemayor [address] [place], [address] 12/18/2023 17:09:55 12/18/19 24 12/18/2023 LASIC METAB OLIC PANEL BUN 14 mg/dL 7-18 normal Not Available Baljit montemayor [address] [place], [address] 12/18/2023 17:09:55 12/18/19 24 12/18/2023 LASIC METAB OLIC PANEL creatinine 1.0 mg/dL 0.70-1 .30 normal Not Available [address] [place], [address] 12/18/2023 17:09:55 12/18/19 24 12/18/2023 LASIC METAB [...] young er-ag ed adult s. Not Available [address] [place], [address] 12/18/2023 17:09:55 12/18/19 24 12/18/2023 LASIC METAB OLIC PANEL sodium 139 mmol/ L 136-14 5 normal Not Available [address] [place], [address] 12/18/2023 17:09:55 12/18/19 24 12/18/2023 LASIC METAB OLIC PANEL potassium 4.9 mmol/ L 3.5-5. 1 normal Not Available [address] [place], [address] 12/18/2023 17:09:55 12/18/19 24 12/18/2023 LASIC METAB OLIC PANEL chloride 104 mmol/ L 98-107 normal Not Available [address] [place], [address] 12/18/2023 17:09:55 12/18/19 24 12/18/2023 LASIC METAB OLIC PANEL CO2 30.9 mmol/ L 21.0-3 2.0 normal Not Available [address] [place], [address] 12/18/2023 17:09:55 12/18/19 24 12/18/2023 LASIC METAB OLIC PANEL anion gap 4.1 mmol/ L 3-11 normal Not Available [address] [place], [address] 12/18/2023 17:09:55 12/18/19 24 12/18/2023 MAGNE SIUM magnesium 1.8 mg/dL 1.8-2. 4 normal Not Available [address] [place], [address] 12/18/2023 17:09:56 07/27/20 24 07/27/2024 LIPID 2 cholesterol 131 mg/dL <200 Not Available [address] [place], [address] 07/27/2024 11:59:38 07/27/20 24 07/27/2024 LIPID 2 triglyceride 162 mg/dL <150 high Not Available [address] [place], [address] 07/27/2024 11:59:38 07/27/2007/27/2024 LIPID 2 HDL cholesterol 35 mg/dL 40-60 low Not Available Domniique blackburn [address] [place], [address] 07/27/2024 11:59:38 07/27/2007/27/2024 LIPID 2 calculated LDL [...] 18 years or older . Not Available [address] [place], [address] 07/27/2024 11:59:38 07/27/2007/27/2024 COMPR EHENS MADYSON METAB OLIC PANEL calcium 9.2 mg/dL 8.5-10 .1 normal Not Available [address] [place], [address] 07/27/2024 11:59:38 07/27/2007/27/2024 COMPR EHENS MADYSON METAB OLIC PANEL glucose 83 mg/dL 74-106 normal Not Available Baljit montemayor [address] [place], [address] 07/27/2024 11:59:38 07/27/2007/27/2024 COMPR EHENS MADYSNO METAB OLIC PANEL BUN 20 mg/dL 7-18 high Not Available Baljit montemayor [address] [place], [address] 07/27/2024 11:59:38 07/27/2007/27/2024 COMPR EHENS MADYSON METAB OLIC PANEL creatinine 1.0 mg/dL 0.70-1 .30 normal Not Available [address] [place], [address] 07/27/2024 11:59:38 07/27/2007/27/2024 COMPR EHENS MADYSON METAB [...] young er-ag ed adult s. Not Available [address] [place], [address] 07/27/2024 11:59:38 07/27/2007/27/2024 COMPR EHENS MADYSON METAB OLIC PANEL total protein 6.8 g/dL 6.4-8. 2 normal Not Available [address] [place], [address] 07/27/2024 11:59:38 07/27/2007/27/2024 COMPR EHENS MADYSON METAB OLIC PANEL albumin 3.5 g/dL 3.4-5. 0 normal Not Available [address] [place], [address] 07/27/2024 11:59:38 07/27/2007/27/2024 COMPR EHENS MADYSON METAB OLIC PANEL bilirubin, total 0.77 mg/dL 0.2-1. 0 normal Not Available [address] [place], [address] 07/27/2024 11:59:38 07/27/2007/27/2024 COMPR EHENS MADYSON METAB OLIC PANEL alk phos 84 U/L 46-116 normal Not Available [address] [place], [address] 07/27/2024 11:59:38 07/27/2007/27/2024 COMPR EHENS MADYSON METAB OLIC PANEL sodium 141 mmol/ L 136-14 5 normal Not Available [address] [place], [address] 07/27/2024 11:59:38 07/27/2007/27/2024 COMPR EHENS MADYSON METAB OLIC PANEL potassium 4.8 mmol/ L 3.5-5. 1 normal Not Available [address] [place], [address] 07/27/2024 11:59:38 07/27/2007/27/2024 COMPR EHENS MADYSON METAB OLIC PANEL chloride 105 mmol/ L 98-107 normal Not Available [address] [place], [address] 07/27/2024 11:59:38 07/27/2007/27/2024 COMPR EHENS MADYSON METAB OLIC PANEL CO2 30.9 mmol/ L 21.0-3 2.0 normal Not Available [address] [place], [address] 07/27/2024 11:59:38 07/27/2007/27/2024 COMPR EHENS MADYSON METAB OLIC PANEL anion gap 5.1 mmol/ L 3-11 normal Not Available [address] [place], [address] 07/27/2024 11:59:38 07/27/2007/27/2024 COMPR EHENS MADYSON METAB OLIC PANEL AST 20 U/L 15-37 normal Not Available Baljit montemayor [address] [place], [address] 07/27/2024 11:59:38 07/27/2007/27/2024 COMPR EHENS MADYSON METAB OLIC PANEL ALT 32 U/L 16-63 normal Not Available Baljit montemayor [address] [place], [address] 07/27/2024 11:59:38 07/27/2007/27/2024 CREAT INE KINAS E creatine kinase 133 U/L 39-308 normal Not Available [facility] [address] , [place], [address] 07/27/2024 11:48:30 09/11/2012/05/2022 trans -thor acic echoc ardio gram (TTE) (PROC ) No observ ation record ed. [email or web address] [facility] [address] , [place], [address], 09/13/2023 09:29:52 09/11/20 23 06/01/2022 XR, hip, unila teral No observ ation record ed. [email or web address] Not Available 2022 09:29:19 09/11/2012/06/2019 , echoc ardio gram No observ ation record ed. [email or web address] [facility] [address] [place], [address], 09/13/2023 09:28:49 07/27/20 24 07/27/2024 x-ray imagi ng repor t Flor t Name: Kanu Hugo Unit #: [id number] Loc: DI Orderi ng Provid er: Dc Louis DO Accoun t #: [id number] Status : REG CLI Primar y Care Provid er: Danna Jordan TELEPHONE INTERCEPTOR OPERATOR Date of Exam: 07/08 10/30 Sex: [...] Vascul ar calcif icatio n is noted sheet mill supervisor iorly in the poplit eal artery . [...] error, please notify us immedi ately at [phone] and return the origin al report to us at the addres s above. Thank- you. INTERFACE [facility] [address], [place], [address] 07/27/2024 18:10:30 Result Notes None recorded. Problems Name Problem SNOMED Code Status Onset Date Resolution Date Notes Provider Name and Address Organization Details Recorded Time Gastroes ophageal reflux disease without esophagi tis 775932412 Active 2022 Problem Code: K21.9; Problem Code Type: ICD-10; Not Available [facility] 4 05:35:57 Glaucoma 04973296 Active 2022 Problem Code: H40.9; Problem Code Type: ICD-10; Not Available [facility] 4 05:35:57 Hyperlip idemia 26796585 Active 2022 Problem Code: E78.5; Problem Code Type: ICD-10; Not Available [facility] 4 05:35:57 [facility] hyperten marisol 81875937 Active 2022 Problem Code: I10; Problem Code Type: ICD-10; Not Available [facility] 4 05:35:57 Pain of left hip joint 47988161064 9100 Active 2022 Problem Code: M25.552; Problem Code Type: ICD-10; Not Available [facility] 4 05:35:57 Idiopath ic osteoart hritis 233524757 Active 2022 Problem Code: M16.12; Problem Code Type: ICD-10; Not Available [facility] 4 05:35:57 Inguinal hernia 132532266 Active 2022 Problem Code: K40.90; Problem Code Type: ICD-10; Not Available [facility] 4 05:35:57 Heart murmur 15608951 Active 2022 Problem Code: R01.1; Problem Code Type: ICD-10; Not Available [facility] 4 05:35:57 Dyspnea 138876322 Active 2022 Problem Code: R06.09; Problem Code Type: ICD-10; Not Available [facility] 4 05:35:57 Chest pain 31563032 Active 2022 Problem Code: R07.89; Problem Code Type: ICD-10; Not Available [facility] 4 05:35:57 Melanocy tic nevus 511711304 Active 2022 Problem Code: D22.9; Problem Code Type: ICD-10; Not Available [facility] 4 05:35:57 Aortic stenosis , non-rheu matic 675582273 Active 2022 Problem Code: I35.0; Problem Code Type: ICD-10; Not Available [facility] 4 05:35:58 Aortic stenosis , non-rheu matic 156863268 Completed 202208/14/2023 Problem Code: I35.0; Problem Code Type: ICD-10; Not Available [facility] 4 05:35:58 Indigest ion 152569008 Active 2023 GLORIA CAMP LPN null, [facility] 4 08:48:57 Coronary artery bypass grafts x 3 Active 2023 Kelly Duran RN null, [facility] 4 10:30:01 At increase d risk of atrial fibrilla tion 009931773 Active [address], [place], [address] , [facility] 4 13:52:01 Anemia 762838397 Active [address], [place], [address] , [facility] 4 13:54:39 Problem Notes None recorded. Procedures Surgical History Date Name Laterality Status Provider Name and Address Organization Details Recorded Time coronary artery bypass graft completed Hudson Reeder MA [facility] 03/04/2024 14:54:09 Imaging Results Imaging Date Name Status LastModified by Organization Details LastModified Time 12/05/2022 trans-thoracic echocardiogram (TTE) (PROC) completed [address] [facility] [address] , [place], [address], 09/13/2023 09:29:52 06/01/2022 XR, hip, unilateral [email or web address] [address] Information not available 09/13/2023 09:29:19 12/06/2019 US, echocardiogram completed [address]- Cardiology [address] [place] [address] [place], [address], 09/13/2023 09:28:49 07/27/2024 x-ray imaging report completed INTERFACE [address] [place], [address] 07/27/2024 18:10:30 Procedure Notes None recorded. Medical [...] Take 1 hr prior. Started by [facility] Not Available [...] MOUTH DAILY 02/24 completed stopped by [facility] Not Available [...] by oral route as needed. active [facility] Not Available Not Available No t Available Aspirin Childrens 81 mg chewable tablet Take 1 tablet by mouth once a day active Not Available Not Available No t Available lisinopri l 5 mg tablet TAKE 1 TABLET BY MOUTH EVERY DAY 02/24 completed stopped by [facility] Not Available [...] by oral route. active started by [facility] Not Available Not Available Not Available dorzolami de 2 % (PF) eye drops 1 drop both eyes bid 12/17 completed Not Available Not Available Not Available Vitals Date Recorded Body weight Body mass index (BMI) Body height Heart rate Systolic blood pressure Diastolic blood pressure Provider Name and Address Organization Details Last Updated DateTime 3 59291.7 8 g 23.7 kg/m2 167.64 cm 64 /min 110 mm[Hg] 60 mm[Hg] GOLRIA CAMP LPN [facility] 3 08:48:49 Date Recorded Body height Body mass index (BMI) Body weight Heart rate Systolic blood pressure Diastolic blood pressure Provider Name and Address Organization Details Last Updated DateTime 4 167.64 cm 24.6 kg/m2 62283.4 4 g 60 /min 112 mm[Hg] 80 mm[Hg] GLORIA CAMP LPN [facility] 4 08:38:13 Date Recorded Body height Body mass index (BMI) Body weight Heart rate Oxygen saturation Oxygen saturation in Arterial blood by Pulse oximetry Systolic blood pressure Diastolic blood pressure Provider Name and Address Organization Details Last Updated DateTime 4 167.64 cm 22.6 kg/m2 78803.6 5 g 63 /min 99 % 99 % 102 mm[Hg] 54 mm[Hg] Hudson Reeder MA [facility] 4 10:27:28 Social History Question Answer Notes LastModified by Organizat ion Details LastModified Time Tobacco Smoking Status Former Smoker Hudson Reeder MA null, [place] - [facility]. 03/06/2024 10:24:50 Do You Have An Advance Directive? Yes Registered 08/15/23 Updated 01/12/24 Information not available 01/15/2024 When Did You Quit Smoking? 11-15years sincelastc igarette [email or web address] Information not available 03/06/2024 Do You Have A Medical Power Of Electrical Power Station Technician? Yes Received 08/30/23, Scanned. Copies Sent To [facility] And Patient 09/02/23. Information not available 09/02/2023 What Was The Date Of Your Most Recent Tobacco Screening? 03/06/2024 [email or web address] Information not available 03/06/2024 What Is Your Current Pack Years? 30ormorepa [email or web address] Information not available 03/06/2024 How Much Tobacco Do You Smoke? 1 PPD [email or web address] Information not available 03/06/2024 How Many Years Have You Smoked Tobacco? 40 [email or web address] Information not available 03/06/2024 Do You Or Have You Ever Used Any Other Forms Of Tobacco Or Nicotine? No [email or web address] Information not available 03/06/2024 Sex: Male Functional [...] Recorded Time Tdap 3 completed Not Available [facility] 10/18/2023 05:30:17 Td(adult) unspecified formulation 3 completed Not Available [facility] 10/18/2023 05:30:17 COVID-19, mRNA, LNP-S, PF, 100 mcg/0.5mL dose or 50 mcg/0.25mL dose 1 completed Not Available [facility] 10/18/2023 05:30:18 COVID-19, mRNA, LNP-S, PF, 100 mcg/0.5mL dose or 50 mcg/0.25mL dose 1 completed Not Available [facility] 10/18/2023 05:30:18 COVID-19, mRNA, LNP-S, PF, 100 mcg/0.5mL dose or 50 mcg/0.25mL dose 1 completed Not Available [facility] 10/18/2023 05:30:18 influenza, unspecified formulation 1 completed Not Available [facility] 10/18/2023 05:30:18 influenza, unspecified formulation 2 completed Not Available [facility] 10/18/2023 05:30:18 influenza, unspecified formulation 0 completed Not Available [facility] 10/18/2023 05:30:18 influenza, unspecified formulation 9 completed Not Available [facility] 10/18/2023 05:30:18 influenza, unspecified formulation 8 completed Not Available [facility] 10/18/2023 05:30:18 Past Encounters Encounter ID Performer Location Encounter Start Date Encounter Closed Date Diagnosis/Indication Diagnosis SNOMED-CT Code Diagnosis ICD10 Code [id number] AMRITA PUENTE [address] [address] 09/19/2023 08:39:51 09/19/2023 09:17:42 Aortic valve stenosis 70814835 I35.0 Essential hypertension 39662981 I10 [id number] AMRITA PUENTE [address] [address] 12/18/2023 08:23:47 12/18/2023 09:29:09 Aortic stenosis, non-rheumatic 866793772 I35.0 Essential hypertension 61048543 I10 Nonulcer dyspepsia 39453 07 K30 Cramp in lower leg 99980 8009 R25.2 [id number] TATYANA LEDEZMA MD [address] [address] 03/06/2024 10:15:07 03/06/2024 11:14:28 Postoperative visit 462376037 Z48.89 Aortic rosa m nosis, non-rheumatic 893709175 I35.0 Stented co ronary artery 537329424 Z95.5 At [facility] risk of atrial fibrillation 378354034 Z91.89 Anemia 148334787 D64.9 Health Concerns Section Related Observation LastModified by Organization Detai ls LastModified Time None Recorded Concern Status LastModified by Organization Details LastModified Time None Recorded Advance Directives Directive Y: Registered 08/15/23Updated 01/12/24 Payers Encounter Date Sequence Insurance Name Policy Number Policy Alicia Covered Member ID Alicia Member ID Guarantor Name 12/18/2023 1 [facility] [id number] Karlos C Patenaude [id number] Karlos C Patenaude 03/06/2024 1 [employer] [id number] Karlos C Patenaude [id number] Karlos C Patenaude Notes Date Note Type Note Provider Name and Address Organization Details Recorded Time 09/19/2023 text/html 63-year-old man here for follow-up hypertension, severe aortic stenosis.,He works full-time at [employer]. He lives at home with his dog. He has not heard from [facility] cardiology? referred mid-August.He did decrease his lisinopril [...] insufficiency. APARNA JORDAN, AMRITA [address], [place], [address], [facility]. 09/19/2023 13:31:38 12/18/2023 text/html 63-year-old man here for follow-up hypertension, severe aortic stenosis.,He works full-time at [employer]. He lives at home with his [...] his coffee. AMRITA PUENTE [address], [place], [address], [facility]. 12/18/2023 11:43:00 03/06/2024 text/html Karlos is here today for a postop evaluation TATYANA LEDEZMA MD [address], [place], [address], [facility]. 03/08/2024 13:57:34
--- OUTSIDE RECORDS SUMMARY | 2024-10-06 10:52 | XMS_ITS | Encounter Summary ---
Author Organization [facility] [place] [address] Care Team Providers Care Tank Builder Supervisor Name Role Phone Vanessa Christian APRN [...] on filedocumented in this encounter Care Teams Tank Builder Supervisor Relationship Specialty Start Date End Date Vanessa Christian APRN PCP - General Family Medicine 10/21/23 05/26/24 documented as of this encounter
--- OUTSIDE RECORDS SUMMARY | 2024-10-06 10:52 | XMS_ITS | Encounter Summary ---
Author Organization [facility] [place] [address] Care Team Providers Care Tour Production Supervisor Name Role Phone Vanessa Christian Lane DOTSON Primary Care Provider [phone] Reason for Referral * Diagnostic Test (Routine) - Closed Specialty Diagnoses / Procedures Referred By Contac t Referred To Contact Radiology Diagnoses Nonrheumatic aortic valve stenosis Procedures CT Chest wo Contrast (Generic) Louisa Cho PA [facility] DR CARDIOTHORACIC [place] [address] [facility] [place] [address] Referral ID Status Reason Start Date Expiration Date V isits Requested Visits Authorized [id number] Closed Specialty Service Requested 01/10/2024 07/11/2025 1 1 Reason for Visit * Diagnostic Test (Routine) - Closed Specialty Diagnoses / Procedures Referred By Contac t Referred To Contact Radiology Diagnoses Nonrheumatic aortic valve stenosis Procedures CT Chest wo Contrast (Generic) Louisa Cho PA [facility] CARDIOTHORACIC [place] [address] [facility] [place] [address] Referral ID Status Reason Start Date Expiration Date V isits Requested Visits Authorized [id number] Closed Specialty Service Requested 01/10/2024 07/11/2025 1 1 Encounter Details Date Type Department Care Team (Latest Contact Info) Description 02/03/2024 7:36 AM EDT - 02/03/2024 8:05 AM EDT Hospital Encounter CT Scan at [facility] [place] [address] [facility] CARDIOTHORACIC [place] [address] Nonrheumatic aortic valve stenosis Discharge Disposition: Home Social History Tobacco Use Types Packs/Day Years Used Date Smoking Tobacco: Former Cigarettes Smokeless Tobacco: Never Comments:Quit 15 + years ago Alcohol Use Standard Drinks/Week Comments Yes 0 (1 standard drink = 0.6 oz pur e alcohol) rare [facility] Inpatient Questions Answer Date Recorded Does [...] wo Contrast (Generic) (02/03/2024 7:44 AM EDT) [employer] Signature WORKSTATION ID [id number] RAD Anatomical Region Laterality Modality Chest Computed [...] questions please contact the health career and technology education teacher that requested your imaging first. ? Electronically signed by: Rogerio Wright MD, [facility] ([phone]), at 02/03/2024 10:00 AM Narrative 02/03/2024 10:00 [...] nodule along the minor fissure (series 302 [id number]) and a 8 mm right lower lobe [...] resident's interpretationand agree with the findings, Rogerio rWight MD at 02/03/2024 10:00 AM Thank you for letting us participate in the care of this patient. If youare a health care provider and have any questions regarding this report,please contact the number below. For patients who have questions please contactthe health career and technology education teacher that requested your imaging first. Electronically signed by: Rogerio Wright MD, [facility]([phone]), at 02/03/2024 10:00 AM Zak Farmer MD IMG CT ORDERABLES documented in this encounter Visit Diagnoses Diagnosis Nonrheumatic aortic valve stenosis Aortic valve disorders documented in this encounter Care Teams Tour Production Supervisor Relationship Specialty Start Date End Date Vanessa Christian APRN PCP - General Family Medicine 10/21/23 05/26/24 documented as of this encounter
--- OUTSIDE RECORDS SUMMARY | 2024-10-06 10:52 | XMS_ITS | Encounter Summary ---
[place] [address] Care Team Providers Care Fountain Pen Nibs Inspector Name Role Phone Vanessa Christian MAURI Primary Care Provider [phone] Reason for Visit * Auth/Cert (Routine) Specialty [...] Rima Dickinson MD [facility] [place] [address] [facility] Referral ID Status Reason Start Date Expiration Date Visits Re quested Visits Authorized [id number] 1 1 Encounter Details Date Type Department Care Team (Late st Contact Info) Description 02/03/2024 10:00 AM EDT - 02/03/2024 11:00 AM [place] [address] Saira Lua MD CARDIAC CATHETERIZATION Social History [...] lbs Follow-up Visits Follow up with your steel fabricating supervisor in 2-4 weeks Access Site 'Black and Blue' and tenderness is expected during the first week Call if you noted a mass (lump) greater than the size of a ellis Call Office with any Questions and if you have any of the following Clarence Lane M.D Interventional Rattle Leak And Squeak Repairer Dethistler Operator #: [phone] * Attachments The following attachments cannot be sent through Care Everywhere. * CAD (Coronary Artery Disease): General Info (Armenian) * Coronary Angiogram: Post-op (Armenian) documented in this encounter Medications at Time [...] Pre-Procedure H&P Update: Cardiac Catheterization Karlos Anthony [id number] 1960 Chief Complaint: Aortic stenosis HPI: Mr. [...] is inthe chart Clarence Lane MD Interventional Rattle Leak And Squeak Repairer 02/03/24 11:48 AM documented in this encounter Miscellaneous Notes * Brief Op Note - Clarence Lane MD - 02/03/2024 12:51 PM EDT Preliminary Cardiac Catheterization Procedure Note: Patient Name: Karlos Anthony : [id number] MR#: [id number] Case Date: 02/03/2024 Dethistler Operator: Surgeon(s) and Role: * Saira Lua [...] Modality Other Narrative 02/12/2024 3:47 PM EDT ?[facility] ? Cardiac Catheterization/Intervention Report ? Patient Name: Patenaude, Karlos ? Procedure Date: 02/03/2024 ? A #: [id number] ? Primary Physician: Mogadam, Emad ? Case #: [id number] ? File Name: [id number] ? Catheterization Order Number: [id number] ? [facility] ? Final Report [place], [place] ? Patient Name: ? Karlos Patenaude ? ID#: ?[id number] ? : ?1960 ? Procedure Date: ? [...] Procedure Note Saira Lua MD - 02/12/2024 [facility] Cardiac Catheterization/Intervention Report Patient Name: Karlos Anthony Procedure Date: 02/03/2024 A #: [id number] Primary Physician: Saira Lua Case #: [id number] File Name: [id number] Catheterization Order Number: [id number] [facility] FinalReport [place], [place] Patient Name: Karlos Anthony ID#:[id number] :1960 Procedure Date: February 03, 2024 Case [...] as ASA Class III. The [facility] clinical frailty scale is 3: Managing Well. [...] (Bezet) 372 ms MUSE SYSTEM Calculated P [place] 59 degrees MUSE SYSTEM Calculated R [place] 34 degrees MUSE SYSTEM Calculated T [place] 63 degrees MUSE SYSTEM INTERPRETATION Sinus bradycardia [...] MD) documented in this encounter Care Teams Fountain Pen Nibs Inspector Relationship Specialty Start Date End Date Vanessa Christian APRN PCP - General Family Medicine 10/21/23 05/26/24 documented as of this encounter
--- OUTSIDE RECORDS SUMMARY | 2024-10-06 10:52 | XMS_ITS | Encounter Summary ---
Author Organization [facility] [place] [address] Care Team Providers Care Supervisor Vat House Name Role Phone Vanessa Christian MAURI Primary Care Provider [phone] Reason for Visit * Auth/Cert (Routine) Specialty [...] MD [facility] [place] [address] [facility] Referral ID Status Reason Start Date Expiration Date Visits Re quested Visits Authorized [id number] 1 1 Encounter Details Date Type Department Care Team (Latest Contact Info) Description 02/03/2024 8:06 AM EDT - 02/03/2024 2:54 PM EDT Hospital Encounter [place] [address] Rima Dickinson MD [facility] [place] [address] Screening for cardiovascular condition; Aortic valve stenosis, [...] Follow-up Visits Follow up with your optical glass sawyer in 2-4 weeks Access Site 'Black and Blue' and tenderness is expected during the first week Call if you noted a mass (lump) greater than the size of a ellis Call Office with any Questions and if you have any of the following Clarence Lane M.D Interventional Business Unit Leader Clerk Rating #: [phone] * Attachments The following attachments cannot be sent through Care Everywhere. * CAD (Coronary Artery Disease): General Info (Bahraini) * Coronary Angiogram: Post-op (Bahraini) documented in this encounter Medications at Time [...] Pre-Procedure H&P Update: Cardiac Catheterization Karlos Anthony [id number] 1960 Chief Complaint: Aortic stenosis HPI: Mr. [...] is inthe chart Clarence Lane MD Interventional Business Unit Leader 02/03/24 11:48 AM documented in this encounter Miscellaneous Notes * Brief Op Note - Clarence Lane MD - 02/03/2024 12:51 PM EDT Preliminary Cardiac Catheterization Procedure Note: Patient Name: Karlos Anthony : [id number] MR#: [id number] Case Date: 02/03/2024 Clerk Rating: Surgeon(s) and Role: * Saira Lua MD [...] Narrative 02/12/2024 3:47 PM EDT ?[facility] ? Cardiac Catheterization/Intervention Report ? Patient Name: Patenaude, Karlos ? Procedure Date: 02/03/2024 ? A #: [id number] ? Primary Physician: Mogadam, Emad ? Case #: [id number] ? File Name: [id number] ? Catheterization Order Number: [id number] ? [facility] ? Final Report [place], [place] ? Patient Name: ? Karlos Anthony ? ID#: ?[id number] ? : ?1960 ? Procedure Date: ? [...] Saira Lua MD - 02/12/2024 [facility] Cardiac Catheterization/Intervention Report Patient Name: Karlos Anthony Procedure Date: 02/03/2024 A #: [id number] Primary Physician: Saira Lua Case #: [id number] File Name: [id number] Catheterization Order Number: [id number] [facility] FinalReport [place], [place] Patient Name: Karlos Anthony ID#:[id number] :1960 Procedure Date: February 03, 2024 Case [...] (Bezet) 372 ms MUSE SYSTEM Calculated P [place] 59 degrees MUSE SYSTEM Calculated R [place] 34 degrees MUSE SYSTEM Calculated T [place] 63 degrees MUSE SYSTEM INTERPRETATION Sinus bradycardia [...] documented in this encounter Care Teams Supervisor Vat House Relationship Specialty Start Date End Date Vanessa Christian, MAURI PCP - General Family Medicine 10/21/23 05/26/24 documented as of this encounter
--- OUTSIDE RECORDS SUMMARY | 2024-10-06 10:52 | XMS_ITS | Encounter Summary ---
Author Organization [facility] Address [facility] [place] [address] Care Team Providers Care Keyboarding Clerk Name Role Phone Vanessa Christian BEAUTY ADVISOR Primary Care Provider [phone] Reason for Referral * Diagnostic Test (Routine) - Closed Specialty Diagnoses / Procedures Referred By Contac t Referred To Contact Radiology Diagnoses Nonrheumatic aortic valve stenosis Procedures CT Chest wo Contrast (Generic) Louisa Reid PA [facility] [place] [address] [facility] [place] [address] Referral ID Status Reason Start Date Expiration Date V isits Requested Visits Authorized [id number] Closed Specialty Service Requested 01/10/2024 07/11/2025 1 1 Encounter Details Date Type Department Care Team (Late st Contact Info) Description 01/09/2024 [place] [address] Zak Farmer MD [facility] [place] [address] Nonrheumatic aortic valve stenosis Social History Tobacco [...] wo Contrast (Generic) (02/03/2024 7:44 AM EDT) [employer] WORKSTATION ID [id number] RAD Anatomical Region Laterality Modality Chest Computed [...] have questions please contact the health care provider that requested your imaging first. ? Electronically signed by: Rogerio Wright MD, [facility] ([phone]), at 02/03/2024 10:00 AM Narrative 02/03/2024 10:00 [...] who have questions please contactthe health care provider that requested your imaging first. Electronically signed by: Rogerio Wright MD, [facility]([phone]), at 02/03/2024 10:00 AM Zak Farmer MD IMG CT ORDERABLES documented in this encounter Visit Diagnoses Diagnosis Nonrheumatic aortic valve stenosis Aortic valve disorders Nonrheumatic aortic valve stenosis Aortic valve disorders documented in this encounter Care Teams Keyboarding Clerk Relationship Specialty Start Date End Date Vanessa Christian APRN PCP - General Family Medicine 10/21/23 05/26/24 documented as of this encounter
--- OUTSIDE RECORDS SUMMARY | 2024-10-06 10:52 | XMS_ITS | Encounter Summary ---
Author Organization [facility] Address [facility] [place] [address] Care Team Providers Care Field Coordinator Name Role Phone Vanessa Christian MAURI Primary Care Provider [phone] Encounter Details Date Type Department Care Team (Latest Contact Info) Description 01/09/2024 3:02 PM EDT - 01/09/2024 11:59 PM EDT Hospital Encounter XRay at [address] [place] [address] Zak Farmer MD [facility] [place] [address] Nonrheumatic aortic valve stenosis Discharge Disposition: Home [...] development manager that requested your imaging first. Zak Farmer MD IMG DX ORDERABLES documented in this encounter Visit Diagnoses Diagnosis Nonrheumatic aortic valve stenosis Aortic valve disorders documented in this encounter Care Teams Field Coordinator Relationship Specialty Start Date End Date Vanessa Christian APRN PCP - General Family Medicine 10/21/23 05/26/24 documented as of this encounter
--- OUTSIDE RECORDS SUMMARY | 2024-10-06 10:52 | XMS_ITS | Encounter Summary ---
Author Organization [facility] [place] [address] Care Team Providers Care Forensic Document Examiner Name Role Phone Vanessa Christian Lane DOTSON Primary Care Provider [phone] Encounter Details Date Type Department Care Team (Latest Contact Info) Description 01/09/2024 3:00 PM EDT Laboratory [place] [id number] Nonrheumatic aortic valve stenosis Social History Tobacco [...] TYPE AND SCREEN, SDP (FUTURE SURGERY, [facility] SAME DAY PROGRAM ONLY) Routine 01/09/2024 2:58 [...] [facility] ABORH Recheck Order Order Placed [facility] ABORH Type Recheck Completed [facility] Blood 01/09/2024 2:58 PM EDT 01/09/2024 3:08 PM EDT Narrative Resulting Agency Comment Spec In Lab Zak Farmer MD BLOOD BANK LAB ORDE ASH [facility] [place] [address] * Differential, Automated (01/09/2024 2:58 PM EDT) Neutrophil % 70.5 % [facility] Neutrophil Absolute 4.34 1.70 - 6.10 x10(3)/[facility] Lymph % 18.9 % [facility] Lymphocytes Abs 1.2 0.9 - 3.2 x10(3)/[facility] Monocyte % 8.0 % [facility] Monocyte Abs 0.5 0.3 - 0.9 x10(3)/[facility] Eos % 1.6 % [facility] Eosinophils Abs 0.1 0.0 - 0.4 x10(3)/[facility] Basophil % 0.5 % [facility] Baso Absolute 0.0 0.0 - 0.1 x10(3)/[facility] Immature Gran % 0.50 % [facility] Comment: Immature granulocytes(IG's)percentage and absolute count will include metamyelocytes, myelocytes, and promyelocytes. Blood smears from CBCs yielding IG's will be scanned manually for concordance. If this scan disagrees with the automated IG or if promyelocytes are noted, a manual differential will be performed. Immature Gran Absolute 0.03 0.00 - 0.04 x10(3)/[facility] Blood 01/09/2024 2:58 PM EDT 01/09/2024 3:03 PM EDT Narrative Resulting Agency Comment Spec In Lab Zak Farmer MD HEMATOLOGY ORDERABL ES [facility] [place] [address] * Hemogram (01/09/2024 2:58 PM EDT) White Blood Cell 6.2 4.0 - 9.5 x10(3)/[facility] Red Blood Cell 5.53 4.58 - 5.54 x10(6)/[facility] Hemoglobin 16.1 13.7 - [...] HOSPITAL LABORATORY Platelet 187 145 - 357 x10(3)/[facility] RDW Standard Deviation 39.2 36.0 - 45.0 [facility] RDW coefficient of variation 12.6 11.4 - 13.8 % [facility] Mean Platelet Volume 9.5 7.6 - 12.9 [facility] LABORATORY NRBC% auto 0.0 % [facility] NRBC Absolute 0.000 0.000 - 0.000 x10(3)/[facility] Blood 01/09/2024 2:58 PM EDT 01/09/2024 3:03 PM EDT Narrative Resulting Agency Comment Spec In Lab Zak Farmer MD HEMATOLOGY ORDERABL ES [facility] [place] [address] * Basic Metabolic Panel (non-fasting) (01/09/2024 2:58 [...] CHEMISTRY ORDERABLE S Performing Organization Address [facility] Co de Phone Number [facility] [place] [address] * Hepatic Function Panel (01/09/2024 2:58 PM [...] CHEMISTRY ORDERABLE S Performing Organization Address [facility] Co de Phone Number [facility] [place] [address] * Prothrombin Time (01/09/2024 2:58 PM EDT) [...] MD HEMATOLOGY ORDERABL ES Performing Organization Address City/[facility]/ZIP Co de Phone Number [facility] [place] [address] * Type and Screen Future Surgery, [facility] SAME DAY PROGRAM ONLY) [...] ORDE RABLES [facility] [place] [address] documented in this encounter Visit Diagnoses Diagnosis Nonrheumatic aortic valve stenosis Aortic valve disorders documented in this encounter Care Teams Forensic Document Examiner Relationship Specialty Start Date End Date Vanessa Christian APRN PCP - General Family Medicine 1/15/24 8/20/24 documented as of this encounter
--- OUTSIDE RECORDS SUMMARY | 2024-10-06 10:52 | XMS_ITS | Encounter Summary ---
Author Organization [facility] Address [facility] Ivana linareseileen [place] [id number] Care Team Providers Care Caustic Cresylate Shift Superintendent Name Role Phone Vanessa Christian MAURI Primary Care Provider [phone] Reason for Referral * Consultation (Routine) - Closed Specialty Diagnoses / Procedures Referred By Contac t Referred To Contact Cardiac Surgery Diagnoses Nonrheumatic aortic valve stenosis significant - TAVR ( defers to Card Surg d/t age) Errol Loya MD [facility] [place] [address] Zak Farmer MD [facility] [place] [address] Referral ID Status Reason Start Date Expiration Date V isits Requested Visits Authorized [id number] Closed Consult, Test & Treat 10/21/2023 10/20/2024 1 1 Reason for Visit * Reason Comments Chest Pain Shortness of Breath Aortic Stenosis Encounter Details Date Type Department Care Team (Late st Contact Info) Description 10/21/2023 1:20 PM EST Office Visit Cardiology at [address] [address] Errol Loya MD [facility] [place] [address] Nonrheumatic aortic valve stenosis Social History Tobacco [...] Problem List Diagnosis Aortic stenosis 12/2022 TTE ([facility]): VITA 0.8-0.9 cm2 (MG 28 [...] the meantime will refer to T at [facility] for further evaluation. Logistics and [...] the meantime will refer to T at [facility] for further evaluation. Logistics and [...] disorders documented in this encounter Care Teams Caustic Cresylate Shift Superintendent Relationship Specialty Start Date End Date Vanessa Christian APRN PCP - General Family Medicine 10/21/23 05/26/24 documented as of this encounter
[2024-10-06 10:58] VITALS: BP 121/62; PULSE 72
== END 2024-10-06 23:59 | disposition home or self-care (01) ==
LOC: CR 10:48
PROVIDERS: PCP Nurse Practitioner Family; Visit Provider Internal Medicine Cardiovascular Disease
DX: R69 Illness, unspecified (principal)

== ENCOUNTER 2024-11-05 10:01 | Outpatient (RCR) | payer SELFPAY ==
[2024-10-07 00:11] VITALS: BP 123/61; PULSE 50
--- OUTSIDE RECORDS SUMMARY | 2024-10-08 10:17 | XMS_ITS | Clinical Summary ---
Author Organization [facility] Address [address] [place] [address] Care Team Providers Care Chainman Name Role Phone Filidayna Vanessa Sherman NP Primary Care Provider [phone] Social History Tobacco Use Types Packs/Day Years [...] 75+ series) 2034 Insurance [employer] Care Teams Chainman Relationship Specialty Start Date End Date Vanessa Christian, ANTWAN [address] [place] [phone] PCP - General Family Medicine - Primary Care 10/07/23
--- OUTSIDE RECORDS SUMMARY | 2024-10-08 10:17 | XMS_ITS | Encounter Summary ---
Author Organization [facility] Address [address] [place] [address] Care Team Providers Care Career Based Intervention Coordinator Name Role Phone Filidayna Vanessa Dayna MONCADA Primary Care Provider [phone] Encounter Details Date Type Department Care Team (Late st Contact Info) Description 10/24/2023 Lab Requisition [facility] Pathology & Laboratory Medicine - [address] [address] Oscar Nichole MD [address] [place] [id number] Factitial dermatitis Social History Tobacco Use Types [...] management options, if applicable. 10/28/2023 11:24 EST [facility] Final Diagnosis A. SKIN OF RESTORATION, LEFT, SHAVE BIOPSY: - Seborrheic keratosis, pigmented. 10/28/2023 11:24 EST [facility] Attestation By [...] Nichole MD PATHOLOGY ORDERABLES Final Resul t [facility] [address] [place] [address] documented in this encounter Visit Diagnoses Diagnosis Factitial dermatitis Dermatitis factitia (artefacta) documented in this encounter Care Teams Career Based Intervention Coordinator Relationship Specialty Start Date End Date Vanessa Christian NP [address] [place] [address] PCP - General Family Medicine - Primary Care 10/07/23 documented as of this encounter
--- OUTSIDE RECORDS SUMMARY | 2024-10-08 10:17 | XMS_ITS | Referral Summary ---
Author Organization [facility] Address [address] [place] [address] Care Team Providers Care Revenue Agent Name Role Phone Vanessa Christian Lane MONCADA Primary Care Provider [phone] Social History Tobacco Use Types Packs/Day Years Used Date Smoking Tobacco: Never Assessed Sex and Gender Information Value Date Recorded Sex Assigned at Not on file Legal Sex Male 22:02 EST Gender Identity Not on file Sexual Orientation Not on file Plan of Treatment Not on file Insurance R Care Teams Revenue Agent Relationship Specialty Start Date End Date Vanessa Christian, ANTWAN [address] [place] [phone] PCP - General Family Medicine - Primary Care 10/07/23
--- OUTSIDE RECORDS SUMMARY | 2024-10-08 10:17 | XMS_ITS | Encounter Summary ---
Author Organization Pending [facility] To [facility] Address [facility] [place] [address] Care Team Providers Care Hi Lift Operator Name Role Phone Vanessa Christian Lane DOTSON Primary Care Provider [phone] Reason for Visit * Reason Comments Coronary Artery Disease Aortic Stenosis Encounter Details Date Type Department Care Team (Latest Contact Info) Description 05/27/2024 11:00 AM EDT Office Visit Cardiology at [address] [phone] Neftali Ernandez MD [facility] [place] [address] ASCVD (arteriosclerotic cardiovascular disease); Nonrheumatic aortic valve stenosis Social History Tobacco Use Types Packs/Day Years Used Date Smoking Tobacco: Former Cigarettes Smokeless Tobacco: Never Comments:Quit 15 + years ago Alcohol Use Standard Drinks/Week Comments Yes 0 (1 standard drink = 0.6 oz pur e alcohol) rare [facility] Utilities Answer Date Recorded In the past 12 months has e [employer], gas, oil, or water [employer] threatened to shut off services in your [...] disorders documented in this encounter Care Teams Hi Lift Operator Relationship Specialty Start Date End Date Vanessa Christian, MAURI [address] [place] [address] PCP - General Family Medicine 05/27/24 documented as of this encounter
--- OUTSIDE RECORDS SUMMARY | 2024-10-08 10:17 | XMS_ITS | Clinical Summary ---
Author Organization [facility] Address [facility] [place] [address] Care Team Providers Care Metal Bench Patternmaker Name Role Phone Vanessa Christian Lane DOTSON Primary Care Provider [phone] Allergies No known active allergies Medications Medication [...] the meantime will refer to SHT at [facility] for [...] series) 06/07/2024 Medical Devices Implanted Type Area Die Set Up Worker Device Identifier Shelf Expiration Date Model / Serial / Lot Cable,Cut,Edg ,Blnt,Ss,3tpr ([id number]) - [id number] Implanted:Qty : 1 on 02/17/2024 by Zak Farmer MD at [facility] IMPLANTS Midline: Chest [employer] - [id number] 09/02/2028 [id number] / / [id number] Valve Coronary Aortic 23mm Tissue Trnscath Biopros Inspiris ([id number]) (Autoreq) - [id number] Implanted:Qty : 1 on 02/17/2024 by Zak aFrmer MD at [facility] IMPLANTS Heart [employer] - TSAI LI 09/15/2027 [id number] 23MM / [id number] / Advance Directives * Attempt Cardiopulmonary Resuscitation [...] Status decision made by: Patient Care Teams Metal Bench Patternmaker Relationship Specialty Start Date End Date Vanessa Christian, FLOWERS SALESPERSON [address] [place] [address] PCP - General Family Medicine 05/27/24
--- OUTSIDE RECORDS SUMMARY | 2024-10-08 10:17 | XMS_ITS | Encounter Summary ---
Author Organization [facility] Address [facility] [place] [address] Care Team Providers Care Aluminum Container Tester Name Role Phone Vanessa Christian MAURI Primary Care Provider Encounter Details Date Type Department Care Team (Latest Contact Info) Description 05/20/2024 Travel Social History Tobacco Use Types Packs/Day Years Used Date Smoking Tobacco: Former Cigarettes Smokeless Tobacco: Never Comments:Quit 15 + years ago Alcohol Use Standard Drinks/Week Comments Yes 0 (1 standard drink = 0.6 oz pur e alcohol) rare [facility] Utilities Answer Date Recorded In the [...] on filedocumented in this encounter Care Teams Aluminum Container Tester Relationship Specialty Start Date End Date Vanessa Christian APRN PCP - General Family Medicine 10/21/23 05/26/24 documented as of this encounter
--- OUTSIDE RECORDS SUMMARY | 2024-10-08 10:17 | XMS_ITS | Encounter Summary ---
Author Organization [facility] Address [facility] [place] [address] Care Team Providers Care Ostomy Rn Name Role Phone Vanessa Christian MAURI Primary Care Provider [phone] Encounter Details Date Type Department Care Team [...] on filedocumented in this encounter Care Teams Ostomy Rn Relationship Specialty Start Date End Date Vanessa Christian APRN [address] [place] [address] PCP - General Family Medicine 05/27/24 documented as of this encounter
--- OUTSIDE RECORDS SUMMARY | 2024-10-08 10:17 | XMS_ITS | Encounter Summary ---
Author Organization [facility] Address [facility] [place] [address] Care Team Providers Care Day Care Center Director Name Role Phone Vanessa Christian MAURI Primary Care Provider [phone] Encounter Details Date Type Department Care Team [...] filedocumented in this encounter Care Teams Day Care Center Director Relationship Specialty Start Date End Date Vanessa Christian APRN PCP - General Family Medicine 10/21/23 05/26/24 documented as of this encounter
--- OUTSIDE RECORDS SUMMARY | 2024-10-08 10:18 | XMS_ITS | Encounter Summary ---
Author Organization [facility] Address [facility] [place] [address] Care Team Providers Care Grain Oilseed Or Pasture Grower Name Role Phone Vanessa Christian FIELD GAUGER Primary Care Provider [phone] Encounter Details Date Type Department Care Team (Late st Contact Info) Description 03/12/2024 2:40 PM EDT Office [place] [phone] Zak Farmer MD [facility] [place] [address] Coronary artery disease, unspecified vessel or lesion type, unspecified whether angina present, unspecified whether nome or transplanted heart Social History Tobacco Use Types Packs/Day Years Used Date Smoking Tobacco: Former Cigarettes Smokeless Tobacco: Never Comments:Quit 15 + years ago Alcohol Use Standard Drinks/Week Comments Yes 0 (1 standard drink = 0.6 oz pur e alcohol) rare [facility] Utilities Answer Date Recorded In the past 12 months has e [employer], gas, oil, or water [employer] threatened to shut off services in your [...] 2:40 PM EDT To: MD Vanessa Coles, FIELD GAUGER Re; Karlos Santa ( 1960) We had [...] office. Best personal regards, Zak Farmer MD [phone] documented in this encounter Plan of Treatment Not on file documented as of this encounter Procedures Procedure Name Priority Date/Time Associated Diagnosis Comments EKG 12-LEAD Routine 03/12/2024 2:35 PM EDT Coronary artery disease, unspecified vessel or lesion type, unspecified whether angina present, unspecified whether nome or transplanted heart documented in this encounter Results * EKG 12 Lead (03/12/2024 2:35 PM EDT) Ventricular rate 59 BPM MUSE SYSTEM Atrial Rate 59 BPM MUSE SYSTEM P-R Interval 190 ms MUSE SYSTEM QRS Duration 92 ms MUSE SYSTEM Q-T Interval 406 ms MUSE SYSTEM QTC Calculated (Bezet) 401 ms MUSE SYSTEM Calculated P [place] -12 degrees MUSE SYSTEM Calculated R [place] 24 degrees MUSE SYSTEM Calculated T [place] 74 degrees MUSE SYSTEM INTERPRETATION Sinus bradycardia T wave abnormality, consider anterior ischemia Abnormal ECG When compared with ECG of 17-FEB-2024 13:24, [place] interval has decreased T wave inversion now evident in Anterior leads Confirmed by Paul Guzman ([id number]) on 03/15/2024 8:36:23 AM MUSE SYSTEM 03/12/2024 2:35 PM EDT 03/15/2024 8:36 AM EDT Zak Farmer MD ECG ORDERABLES [employer] SYSTEM documented in this encounter Visit Diagnoses Diagnosis Coronary artery disease, unspecified vessel or lesion type, unspecified whether angina present, unspecified whether nome or transplanted heart documented in this encounter Care Teams Grain Oilseed Or Pasture Grower Relationship Specialty Start Date End Date Vanessa Christian, MAURI PCP - General Family Medicine 10/21/23 05/26/24 documented as of this encounter
--- OUTSIDE RECORDS SUMMARY | 2024-10-08 10:18 | XMS_ITS | Encounter Summary ---
[place] [address] Care Team Providers Care Collar Setter Name Role Phone Aparna Jordan MAURI Primary Care Provider [phone] Reason for Referral * Diagnostic Test (Routine) - New Request Specialty Diagnoses / Procedures Referred By Contac t Referred To Contact Cardiology Diagnoses S/P AVR Procedures Echocardiogram Transthoracic Neftali Menon PA [facility] [place] [address] [facility] [place] [address] Referral ID Status Reason Start Date Expiration Date Visits Requested Visits Authorized [id number] New Request Specialty Service Requested 02/24/2024 02/23/2025 1 1 * Consultation (Routine) - Closed Specialty Diagnoses / Procedures Referred By Contac t Referred To Contact Cardiology Diagnoses S/P AVR Hayder Graham MD [facility] [place] [address] Cardiac Rehab, [facility] [address] [place] [address] [place] [address] Referral ID Status Reason Start Date Expiration Date V isits Requested Visits Authorized [id number] Closed Consult, Test & Treat 02/24/2024 08/22/2024 36 36 * Home Health Care (Routine) - Closed Specialty Diagnoses / Procedures Referred By Sixto mendoza Referred To Contact Diagnoses S/P AVR Hayder Graham MD [facility] [place] [address] Referral ID Status Reason Start Date Expiration Date V isits Requested Visits Authorized [id number] Closed Consult, Test & Treat 02/24/2024 08/22/2024 [...] Graham MD [facility] [place] [address] [facility] Referral ID Status Reason Start Date Expiration Date Visits Re quested Visits Authorized [id number] 1 1 Encounter Details Date Type Department Care Team (Latest Contact Info) Description 02/17/2024 5:43 AM EDT - 02/24/2024 11:23 AM EDT Hospital Encounter Heart and Vascular Unit Level 4 [place] [address] Hayder Graham MD [facility] [place] [address] S/P AVR (Primary Dx); Aortic valve stenosis, [...] 1-2 weeks. Patient to follow up with Flight Attendant, Neftali Ernandez MD , in 2 weeks. Patient to follow up with Cardiac Surgeon, Dr. Hayder Graham, with a chest x-ray, EKG, and Echo. Inpatient Provider Contact Information: [facility] Section of Cardiac Surgery [facility] [address] FAX [phone] Discharge Diagnoses (Hospital Problems) Primary Diagnoses: /CAD [...] 33.75) performed by Hayder Graham MD at [facility] MAIN OR PRO CABG, ARTERY-VEIN, TWO N/A 02/17/2024 @CABG, TWO VENOUS GRAFTS & ARTERIAL GRAFT (WRVU 7.93) performed by Hayder Graham MD at [facility] MAIN OR PRO ENDOSCOPY W/VIDEO-ASST VEIN HARVEST, CABG Left 02/17/2024 ENDOSCOPIC HARVEST VEIN(S) FOR CABG (WRVU 0.31) performed by Hayder Graham MD at [facility] MAIN OR PRO REPLACEMENT PROSTHETIC AORTIC VALVE OPEN W CARDIOPULMONARY BYPASS HOMOGRF/STENT N/A 02/17/2024 @REPLACE AORTIC VALVE, OPEN, W\CPB, W\PROSTHETIC VALVE (WRVU 41.32) performed by Hayder Graham MD at [facility] MAIN OR Prior To Admission [...] insufficiency. He has glaucoma. He used to [employer] until about 15 years ago. He has undergone prior herniorrhaphy. 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 Major Procedures/Operations: 02/17/24 s/p avr/cabgx3 CABG x 3 JOSE->LAD SVG->dRCA SVG->OM1 EVH from LLE AVR with a 23 mm Inspiris Bioprosthesis Hospital Course: Karlos Garcia was admitted to [facility] on 02/17/2024 via the Same Day [...] Hayder Graham and/or the Cardiac Surgery Physician Finance Director Team may be reached at . [...] Please refer to the card with the [place] [employer] Guidelines for more information. You [...] Dr. Hayder Graham. You may use a Blanca Track or treadmill but avoid any pulling [...] should resume a low fat, low cholesterol, [place] [employer] Diet. Driving: No driving until [...] while being managed by your PCP and/or Flight Attendant. For future medication refills, please refer to your PCP and/or Flight Attendant after your discharge from our service. Thank you REMOVE CHEST TUBE SUTURES ON OR AFTER 03/02/24 Home oxygen therapy: N/A Follow up appointments: You should follow up with your PCP, Aparna Jordan APRN, in 1-2 weeks. Our office will schedule an appointment with your Flight Attendant, Neftali Ernandez MD , in 2 weeks. [...] Future Orders Complete By Expires Echocardiogram Transthoracic [59740 CPT(R)] 03/26/2024 09/25/2024 Process Instructions: Scheduling Instructions: Questions: Where will study be performed?: [facility] Clinics Does the patient have Congenital Heart Disease?: Does patient require sedation?: Sedation rationale: XR Chest PA & Lateral (Generic) [87570 80124 Custom] 03/26/2024 09/25/2024 Process Instructions: Scheduling Instructions: Questions: Portable exam?: Reason for exam and clinical history: s/p avr/cabg Clinical information / jerome questions for radiologist: Stat read required?: Date of injury if applicable: Requested Time: Where will study be performed?: [facility] Radiology Referral to Cardiac Rehab [[id number] Custom] As directed Process Instructions: If no [...] to Home Health. [address] Phone Number: Date of : 1960 Inpatient DOCUMENTATION FOR VNA SERVICES (INCLUDING THOSE PATIENTS WITH MEDICARE COVERAGE REQUIRING HOME VNA SERVICES AND/OR HOSPICE SERVICES) PATIENT'S LOCATION: Karlos Garcia [address] [employer] [phone] Picker Tender's Name: self/family In discussion with the attending physician, it is certified that this patient is under their care and that they, or a Nurse Practitioner, or Physician Finance Director who is working directly with them, [...] for services as follows: HOME HEALTH AGENCY: [facility]. [address] [place] [address] RN orders: Cardiopulmonary assessment, incisional assessment, assess [...] issues please call the Cardiology Office at [phone] FOR MEDICARE ONLY: (please delete this section [...] As above. Signed: NEFTALI MENON PA-C [facility] Section of Cardiac Surgery [facility] [address] FAX [phone] Date: 02/24/2024 CC: Aparna Jordan, MAURI Jordan, Aparna Sherman APRN [address] [place] [address] documented in this encounter Discharge Instructions * [...] Hayder Graham and/or the Cardiac Surgery Physician Finance Director Team may be reached at . [...] Please refer to the card with the [place] Heart Association Guidelines for more information. You [...] Dr. Hayder Graham. You may use a Blanca Track or treadmill but avoid any pulling [...] should resume a low fat, low cholesterol, [place] Heart [employer] Diet. Driving: No driving until [...] while being managed by your PCP and/or Flight Attendant. For future medication refills, please refer to your PCP and/or Flight Attendant after your discharge from our service. Thank you REMOVE CHEST TUBE SUTURES ON OR AFTER 03/02/24 Home oxygen therapy: N/A Follow up appointments: You should follow up with your PCP, Aparna Jordan APRN, in 1-2 weeks. Our office will schedule an appointment with your Flight Attendant, Neftali Ernandez MD , in 2 weeks. [...] 0600 and on the weekends please page [phone]. * Eric Barahona PA - 02/23/2024 9:27 [...] 0600 and on the weekends please page [phone]. * Tiffanie Owens PTA - 02/22/2024 2:48 [...] Pt reports his dtr is coming from [place] to stay upon d/c for 10 days. 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 He works Precautions/Special [...] LRAD and supervision Time IN / OUT: 1023-0815 Total Time: 30 minutes; TEFx2 Tiffanie Owens Pager: [phone] Physical Therapy Inpatient Rehabilitation Department * Romeo [...] the weekends please page [phone]. * Kelley Hinson, LOOPING MACHINE OPERATOR - 02/21/2024 10:15 AM EDT [...] Pt reports his dtr is coming from [place] to stay upon d/c for 10 days. 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 * Kelley Hinson PTA - 02/20/2024 3:32 PM EDT 02/20/24 [id number] Evaluation & Treatment Document Type contact Total Minutes, Physical Therapy 0 Comment, Session Not Performed Checked in w/ pt this PM for ongoing PT services, pt politely declined, stating he had been dealing w/ nausea all day, made plan to see him tomorrow morning, will f/u at that time Kelley Hinson PTA Pager: [phone] Physical Therapy Inpatient Rehab Department * Louisa [...] 0600 and on the weekends please page [phone]. * Maris Benavides, PT - 02/19/2024 11:22 [...] Pt reports his dtr is coming from [place] to stay upon d/c for 10 days. 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 Precautions/Special [...] outlined inthis evaluation. MARIS BENAVIDES, PT Pager: [phone] Physical Therapy Inpatient Rehabilitation Department Time IN / OUT: 5952-1484 Total Time: 38 (eval) minutes; * Antonio [...] 0600 and on the weekends please page [phone]. * Minnie Begum PA - 02/18/2024 8:25 [...] 0600 and on the weekends please page [phone]. * Kim Ha RCP - 02/17/2024 2:25 [...] plan since last visit. Hayder Graham MD [phone] Source Note - Hayder Graham MD - [...] insufficiency. He has glaucoma. He used to [employer] until about 15 years ago. He has [...] given written informed consent. Hayder Graham MD [phone] * Hayder Graham MD - 02/17/2024 7:00 [...] given written informed consent. Hayder Graham MD [phone] documented in this encounter Miscellaneous Notes * [...] for follow-up Home Health & Hospice, [address] [place] [address] Cardiac Rehab, [facility] [address] [place] [address] Transportation: family or friend will provide Functional status prior to admission: Independent Home Environment: Others in the home: alone. Current Living Arrangements: home/apartment/condo. Accessibility Concerns:a few steps to enter 1 floor home. Current Functional Ability: Assistive Person and Equipment DME used at home: none DME Needed at Discharge: N/A Patient is insured through: Primary Insurance: [facility] [employer] Payor: [facility] / Plan: [facility] PPO / Product Type: *No [...] Appropriate) * Plan of Care - Jazlyn aMldonado RN - 02/21/2024 4:41 PM EDT OUTCOME EVALUATION NOTE: OUTCOME SUMMARY: Pt A/Ox4. See saved tele strips. Incisional pain managed with scheduled Tylenol. Worked with [employer]. Ambulated in the roque multiple times during [...] anticipated Patient is insured through: Primary Insurance: [facility] Payor: [facility] / Plan: [facility] PPO / Product Type: *No Product type* / Secondary Insurance: N/A Last Physical Therapy Recommendation: home with home health (Str coming to stay for a week or two upon d/c) with to be determined (owns rolling walker, shower seat) Plan for discharge is: Home w/ Services Outpatient Agency/Support Group Needs: Homecare agency Home Health Services: Physical Therapy, Registered Nurse Agency Referrals: [facility] [address] [address] Transportation: family or friend will provide Barriers to discharge: Discharge planning Plan going forward: Service Care Management will continue to follow and assist with discharge planning and coordination of care as indicated. Anticipated Date of Discharge: 02/22/2024 Rhett Bell RN RN/CM - Cellphone: [phone] Pager: [phone] Covering Service RN/CM * Plan of Care [facility] Karlos [...] care in [place] must abide by [place] law. The hierarchy [...] (i) The agent with financial power of business attorney or a conservator appointed in accordance [...] In the past 12 months has the [employer], gas, oil, or water [employer] threatened to shut off services in your [...] as: [address] [facility] [address] Physical address: [address] [facility], [address] Social & Family Supports: All names listed [...] noted Health/Prescription Coverage: Primary Insurance: [facility] Payor: [facility] / Plan: [facility] PPO / Product Type: *No Product type* / Secondary Insurance: N/A ; Prescription Coverage: Yes Preferred Pharmacy: [id number] AT [facility] & [address] [address] Status: Patient is a : No Primary Care Provider confirmed: Aparna Jordan, CHILDCARE PROVIDER [phone] Patient/Caregiver Goals of Treatment: dc to home Potential Needs for Transition of Care: home health care Agency Referrals: I have met with the patient to: discuss discharge planning needs. provide the [facility], Office of Care Management letter from the Business Enterprise Officer pertaining to rehab referrals. provide a letter describing our affiliations within the [facility] and educate about their right to choose where referrals are sent. provide a list of Home Health Agencies / Durable Medical Equipment vendors which serve their preferred geographic area. provided patient with [facility] Star Quality Rating handout. They have requested referrals to: [facility] Care Agency [facility]. [address] [place] [address] Note routed to a Disability Advocate who will communicate referrals to facilities and [...] daughter, Cielo, will be coming in from [place] on 02/18, to stay with him , [...] Reina Greene RN CM, BSN, CMGT- Ext [phone] * Plan of Care - Binta Trinidad [...] Operative Note Patient Name: Karlos Garcia DOB: [id number] MR#: [id number] Case Date: 02/17/2024 Surgeon: Surgeon(s) and Role: * Hayder Graham MD - Primary * Neftali Menon PA - Physician Finance Director Preoperative diagnosis: CAD Postoperative diagnosis: CAD, [...] Operative Note Patient Name: Karlos Garcia : [id number] MR#: [id number] Case Date: 02/17/2024 Surgeon: Surgeons and Role: * Hayder Garham MD - Primary * Neftali Menon PA - Physician Finance Director Preoperative diagnosis: CAD Postoperative diagnosis: CAD, [...] Aortic Valve Open W Cardiopulmonary Bypass Homogrf/Stent (74790) Yes 02/17/2024 7:28 AM EDT CAD Cabg, Artery-Vein, Two (35885) Yes 02/17/2024 7:28 AM EDT CAD Cabg, Arterial, Single (78778) Yes 02/17/2024 7:28 AM EDT CAD Endoscopy W/Video-Asst Vein [place], Cabg (05141) Yes 02/17/2024 7:28 AM EDT CAD POCT [...] MD CHEMISTRY ORDERABLE S [facility] [place] [address] * (ABNORMAL) Basic Metabolic Panel (non-fasting) (02/23/2024 [...] Carpio MD CHEMISTRY ORDERABLES [facility] [place] [address] * Potassium (02/22/2024 4:30 AM EDT) [facility] Signature Potassium 3.5 3.5 - 5.0 [...] MD CHEMISTRY ORDERABLE S [facility] [place] [address] * (ABNORMAL) Basic Metabolic Panel (non-fasting) (02/21/2024 [...] [facility]/ZIP Co de Phone Number [facility] [place] [address] * Lactate, whole blood, send to lab ([facility]) (02/21/2024 9:45 AM EDT) [facility] Lactate WB 2.0 0.5 - 2.2 mmol/L [facility] Blood 02/21/2024 9:45 AM EDT 02/21/2024 9:52 AM EDT Narrative Resulting Agency Comment Spec In Lab Hayder Graham MD CHEMISTRY ORDERABLE S Performing Organization Address [facility] Co de Phone Number [facility] [place] [address] * (ABNORMAL) Hepatic Function Panel (02/21/2024 9:45 [...] [facility]/ZIP Co de Phone Number [facility] [place] [address] * Lipase (02/21/2024 9:45 AM EDT) [facility] Lipase 56 0 - 60 unit/L [facility] Blood 02/21/2024 9:45 AM EDT 02/21/2024 9:52 AM EDT Narrative Resulting Agency Comment Spec In Lab Hayder Graham MD CHEMISTRY ORDERABLE S Performing Organization Address [facility] Co de Phone Number [facility] [place] [address] * Amylase (02/21/2024 9:45 AM EDT) Amylase 69 28 - 100 unit/L [facility] Blood 02/21/2024 9:45 AM EDT 02/21/2024 9:52 AM EDT Narrative Resulting Agency Comment Spec In Lab Hayder Graham MD CHEMISTRY ORDERABLE S Performing Organization Address [facility] de Phone Number [facility] [place] [address] * Potassium (02/21/2024 3:08 AM EDT) [facility] Potassium 3.8 3.5 - 5.0 mmol/L [facility] [...] Organization Address [facility] Co de Phone Number [facility] [place] [address] * XR Chest PA & Lateral (Generic) (02/20/2024 10:19 AM EDT) WORKSTATION ID [id number] DH RAD Anatomical Region Laterality Modality Chest [...] signed by: Rogerio Cruz MD, [facility] ??([phone]), at 02/20/2024 1:11 PM Narrative 02/20/2024 1:11 PM EDT EXAMINATION: XR CHEST PA AND LATERAL (GENERIC) CLINICAL HISTORY: s/p AVR/CABGx3 TECHNIQUE: PA and lateral views of the chest COMPARISON: 02/17/2024 FINDINGS: Support devices: Interval removal of [place]a catheter, endotracheal tube and mediastinal chest tubes The cardiac silhouette is stable status post median sternotomy, CABG and aortic valve replacement. There are small pleural effusions. No pneumothorax. Procedure Note Rogerio Cruz MD - 02/20/2024 EXAMINATION: XR CHEST PA AND LATERAL (GENERIC) CLINICAL HISTORY: s/p AVR/CABGx3 TECHNIQUE: PA and lateral views of the chest COMPARISON: 02/17/2024 FINDINGS: Support devices: Interval removal of [place]a catheter, endotracheal tubeand mediastinal chest tubes The [...] daycare worker that requested your imaging first. Hayder Graham MD IMG DX ORDERABLES * Scan, Peripheral Blood (02/20/2024 4:23 AM EDT) Pathologist [facility] Plat estimate Decreased [facility] RBC Morphology Normal [facility] Blood 02/20/2024 4:23 AM EDT 02/20/2024 4:42 AM EDT Narrative Resulting Agency Comment Spec In Lab Minnie FRENCH HEMATOLOGY CECILIO ALEMAN [facility] [place] [address] * (ABNORMAL) Differential, Automated (02/20/2024 4:23 AM EDT) [facility] Neutrophil % 81.7 % [facility] Neutrophil Absolute 10.37(H) 1.70 - 6.10 x10(3)/mc L [facility] Lymph % 7.4 % [facility] Lymphocytes Abs 0.9 0.9 - 3.2 x10(3)/mc L [facility] Monocyte % 9.7 % [facility] Monocyte Abs 1.2(H) 0.3 - 0.9 x10(3)/mc L [facility] Eos % 0.1 % [facility] Eosinophils Abs 0.0 0.0 - 0.4 x10(3)/mc L [facility] Basophil % 0.2 % [facility] [...] FRENCH HEMATOLOGY CECILIO ALEMAN [facility] [place] [address] * (ABNORMAL) Hemogram (02/20/2024 4:23 AM EDT) [...] FRENCH HEMATOLOGY CECILIO ALEMAN [facility] [place] [address] * (ABNORMAL) Basic Metabolic Panel (non-fasting) (02/20/2024 [...] Organization Address [facility] Co de Phone Number [facility] [place] [address] * Potassium (02/19/2024 3:57 AM EDT) Potassium [...] Organization Address [facility] Co de Phone Number [facility] [place] [address] * POCT Glucose (02/18/2024 8:24 AM EDT) Glucose, POC 157 65 - 199 mg/dL [facility] Comment: Supplemental ranges: <140 mg/dL before meals <180 mg/dL all other times of the day Blood 02/18/2024 8:24 AM EDT 02/18/2024 8:24 AM EDT Hayder Graham MD POINT OF CARE TEST ORDERABLES [facility] [place] [address] * Scan, Peripheral Blood (02/18/2024 1:40 AM EDT) Pathologist [facility] Plat estimate Decreased [facility] RBC Morphology Normal [facility] Blood 02/18/2024 1:40 AM EDT 02/18/2024 1:56 AM EDT Narrative Resulting Agency Comment Spec In Lab Neftali FRENCH HEMATOLOGY ORDER OLE Performing Organization Address City/[facility]/ZIP Co de Phone Number [facility] [place] [address] * (ABNORMAL) Differential, Automated (02/18/2024 1:40 AM EDT) [facility] Neutrophil % 87.1 % [facility] Neutrophil Absolute 15.03(H) 1.70 - 6.10 x10(3)/mc L [facility] Lymph % 3.0 % [facility] Lymphocytes Abs 0.5(L) 0.9 - 3.2 x10(3)/mc L [facility] Monocyte % 9.1 % [facility] Monocyte Abs 1.6(H) 0.3 - 0.9 x10(3)/mc L [facility] Eos % 0.0 % [facility] Eosinophils Abs 0.0 0.0 - 0.4 x10(3)/mc L [facility] Basophil % 0.2 % [facility] [...] FRENCH HEMATOLOGY ORDER OLE [facility] [place] [address] * (ABNORMAL) Hemogram (02/18/2024 1:40 AM EDT) [...] [facility] NRBC% auto 0.0 % [facility] NRBC Absolute 0.000 0.000 - 0.000 x10(3)/ L [facility] Blood 02/18/2024 1:40 AM EDT 02/18/2024 1:56 AM EDT Narrative Resulting Agency Comment Spec In Lab Neftali FRENCH HEMATOLOGY ORDER OLE [facility] [place] [address] * (ABNORMAL) Basic Metabolic Panel (non-fasting) (02/18/2024 [...] [facility]/ZIP Co de Phone Number [facility] [place] [address] * (ABNORMAL) Troponin (02/18/2024 1:40 AM EDT) [...] value can be found in the [facility] Test Catalog Troponin - [facility] Test Catalog Reference: Fourth [place] Definition of Myocardial Infarction. Journal of the [place] College of Cardiology 2018;72:6669-4176 Blood 02/18/2024 1:40 AM EDT 02/18/2024 1:56 AM EDT Narrative Resulting Agency Comment Spec In Lab Hayder Graham MD CHEMISTRY ORDERABLE S [facility] [place] [address] * POCT Glucose (02/17/2024 8:13 PM EDT) Glucose, POC 142 65 - 199 mg/dL [facility] Comment: Supplemental ranges: <140 mg/dL before meals <180 mg/dL all other times of the day Blood 02/17/2024 8:13 PM EDT 02/17/2024 8:13 PM EDT Hayder Graham MD POINT OF CARE TEST ORDERABLES Performing Organization Address [facility] Co de Phone Number [facility] [place] [address] * POCT Glucose (02/17/2024 5:42 PM EDT) Glucose, POC 160 65 - 199 mg/dL [facility] Comment: Supplemental ranges: <140 mg/dL before meals <180 mg/dL all other times of the day Blood 02/17/2024 5:42 PM EDT 02/17/2024 5:42 PM EDT Hayder Graham MD POINT OF CARE TEST ORDERABLES Performing Organization Address [facility]/ZIP Co de Phone Number [facility] [place] [address] * Hemoglobin (02/17/2024 5:42 PM EDT) Hemoglobin 13.7 13.7 - 16.5 g/dL [facility] Blood 02/17/2024 5:42 PM EDT 02/17/2024 6:10 PM EDT Narrative Resulting Agency Comment Spec In Lab Haydre Graham MD HEMATOLOGY ORDERABL ES [facility] [place] [address] * Potassium (02/17/2024 5:42 PM EDT) Potassium [...] MD CHEMISTRY ORDERABLE S Performing Organization Address City/State/[facility] Co de Phone Number [facility] [place] [address] * (ABNORMAL) BLOOD GAS 2 ARTERIAL (02/17/2024 [...] [facility] FIO2 Art 40 % [facility] PF Ratio Art 195 [facility] Blood 02/17/2024 4:18 PM EDT 02/17/2024 4:18 PM EDT Hayder Graham MD POINT OF CARE TEST ORDERABLES [facility] [place] [address] * XR Chest One View (02/17/2024 1:44 PM EDT) Xecced WORKSTATION ID [id number] DH RAD Anatomical Region Laterality Modality Chest N/A Digital Radiogra phy Impressions 02/17/2024 2:12 PM EDT 1. ??No definite pleural fluid collection or pneumothorax. 2. ??Right IJ [place] catheter tip terminates in a descending branch [...] signed by: Denzel Hankins MD, [facility] ??([phone]), at 02/17/2024 2:12 PM Narrative 02/17/2024 2:12 PM EDT EXAMINATION: XR CHEST ONE VIEW CLINICAL HISTORY: s/p avr/cabg eval effusions TECHNIQUE: 1 view of the chest COMPARISON: Chest x-ray 01/09/2024, chest CT 02/03/2024 FINDINGS: ET tube tip terminates 5.2 cm above the carlos. Right IJ [place] catheter tip terminates in a descending branch [...] No acute osseous abnormality. Procedure Note Denzel Haknins MD - 02/17/2024 EXAMINATION: XR CHEST ONE VIEW CLINICAL HISTORY: s/p avr/cabg eval effusions TECHNIQUE: 1 view of the chest COMPARISON: Chest x-ray 01/09/2024, chest CT 02/03/2024 FINDINGS: ET tube tip terminates 5.2 cm above the carlos. Right IJ [place]-Ganzcatheter tip terminates in a descending branch of [...] collection or pneumothorax. 2. Right IJ [place] catheter tip terminates in a descending branch [...] daycare worker that requested your imaging first. Electronically signed by: Denzel Hankins MD, [facility]([phone]), at 02/17/2024 2:12 PM Hayder Graham MD [...] [facility] FIO2 Art 100 % [facility] PF Ratio Art 320 [facility] Blood 02/17/2024 1:31 PM EDT 02/17/2024 1:31 PM EDT Hayder Graham MD POINT OF CARE TEST ORDERABLES [facility] [place] [address] * (ABNORMAL) Coox2 (02/17/2024 1:21 PM EDT) [...] CARE TEST ORDERABLES [facility] [place] [address] * (ABNORMAL) BLOOD GAS 2 ARTERIAL (02/17/2024 [...] Organization Address [facility]/ZIP Co de Phone Number [facility] [place] [address] * (ABNORMAL) Fibrinogen (02/17/2024 12:10 PM EDT) [...] MD HEMATOLOGY ORDERABLE S Performing Organization Address City/[facility]/ZIP Co de Phone Number [facility] [place] [address] * (ABNORMAL) Thrombin time (02/17/2024 12:10 PM [...] Organization Address [facility] Co de Phone Number [facility] [place] [address] * APTT (02/17/2024 12:10 PM EDT) Partial [...] Organization Address [facility] Co de Phone Number [facility] [place] [address] * (ABNORMAL) Prothrombin Time (02/17/2024 12:10 PM [...] HEMATOLOGY ORDERABLE S [facility] [place] [address] * (ABNORMAL) Hemogram (02/17/2024 12:10 PM EDT) [...] RDW Standard Deviation 40.2 36.0 - 45.0 [facility] RDW coefficient of variation 12.8 11.4 - 13.8 % [facility] Mean Platelet Volume 9.5 7.6 - 12.9 fL [facility] NRBC% auto 0.0 % [facility] NRBC Absolute 0.000 0.000 - 0.000 x10(3)/mc L [facility] Blood 02/17/2024 12:1 0 PM EDT 02/17/2024 12:19 PM EDT Narrative Resulting Agency Comment Spec In Lab Tara York MD HEMATOLOGY ORDERABLE S [facility] [place] [address] * (ABNORMAL) BLOOD GAS 2 ARTERIAL (02/17/2024 [...] mmol/L [facility] Comment: Noted by plant and instrument [...] OF CARE TEST ORDERABLES [facility] [place] [address] * (ABNORMAL) BLOOD GAS 2 ARTERIAL (02/17/2024 [...] mmol/L [facility] Comment: Noted by plant and instrument [...] Organization Address [facility]/ZIP Co de Phone Number [facility] [place] [address] * (ABNORMAL) Hemoglobin and Hematocrit, blood (02/17/2024 [...] [facility]/[place] [address] * (ABNORMAL) Platelet count (02/17/2024 11:04 AM EDT) Platelet 106(L) 145 - 357 x10(3)/mc L [facility] Immature Plt % 1.6 0.0 - 7.4 % [facility] Comment: Limitation of the Immature Platelet Fraction (IPF)-May be less reliable when the platelet count is less than 06j263/uL due to statistical imprecision. The IPF value [...] in a decreased state of production. References: [employer] The Clinical Value of the Immature Platelet Fraction (IPF) in Cell Recovery Document Number 10-1143 03/2011 [employer] The Role of the Immature Platelet Fraction (IPF) in the Differential Diagnosis of Thrombocytopenia, Document MKT-10-1209 V002/15/14 Blood 02/17/2024 11:0 4 AM EDT 02/17/2024 11:12 AM EDT Narrative Resulting Agency Comment Spec In Lab Hayder Graham MD HEMATOLOGY ORDERABL ES Performing Organization Address City/State/[facility] Co de Phone Number [facility] [place] [address] * (ABNORMAL) Fibrinogen (02/17/2024 11:04 AM EDT) [...] MD HEMATOLOGY ORDERABL ES [facility] [place] [address] * (ABNORMAL) BLOOD GAS 2 ARTERIAL (02/17/2024 [...] OF CARE TEST ORDERABLES [facility] [place] [address] * (ABNORMAL) BLOOD GAS 2 ARTERIAL (02/17/2024 [...] OF CARE TEST ORDERABLES [facility] [place] [address] * Surgical Pathology Report (02/17/2024 10:01 AM EDT) Final Diagnosis [id number] ? Location: [facility]; [facility]; The signing pathologist has (i) examined the relevant preparation(s) for the specimen(s) and (ii) rendered or confirmed the diagnosis(es). . ?Surgical Pathology DIAGNOSIS Aortic valve leaflets, excision: Valve leaflets with myxoid degeneration, nodular fibrosis and dystrophic calcifications. Electronically signed by: ?Livier Montoya MD Verified: ??02/24/2024 13:49 ??Pathologist Performed at: ??-[facility] Dept. of Pathology, [place] [address] Business Enterprise Officer: Job Brewer MD, FCAP, ??IA Certificate: [id number] SPECIMEN(S) SUBMITTED A - Aortic Valve Leaflets, [...] Sections Processing Blocks submitted for decalcification: A1. Concrete Float Maker sections in 1 cassette labeled A1. ??ajw 02/24/2024 1:49 PM EDT [facility] AORTIC STRUCTURE / Unknown 02/17/2024 10:01 AM EDT 02/17/2024 10:01 AM EDT Hayder Graham MD PATHOLOGY/CYTOLOGY ORDERABLES [facility] [place] [address] * Specimen to Pathology (02/17/2024 10:01 AM EDT) AP Specimen 02/17/2024 10:0 1 AM EDT 02/17/2024 10:01 AM EDT Narrative [facility] - 02/17/2024 10:01 AM EDT Specimen requisition ordered. ??Separate Pathology report to follow Hayder Graham MD PATHOLOGY/CYTOLOGY ORDERABLES Performing Organization Address City/[facility]/ZIP Co de Phone Number [facility] [place] [address] * (ABNORMAL) BLOOD GAS 2 ARTERIAL (02/17/2024 [...] OF CARE TEST ORDERABLES [facility] [place] [address] * (ABNORMAL) BLOOD GAS 2 VENOUS (02/17/2024 9:34 AM EDT) pH, Venous 7.22(Criti marquez) 7.32 - 7.42 [facility] Comment:Noted by plant and instrument engineer. PCO2, Venous 43 41 - 51 mmHg [facility] Comment:Noted by plant and instrument engineer. PO2, Venous 57(H) 25 - 40 mmHg [facility] Comment:Noted by plant and instrument engineer. Bicarbonate, Venous 17.1 mmol/L [facility] Comment:Noted by plant and instrument engineer. Base Excess, Venous -10.6 mmol/L [facility] Comment:Noted by plant and instrument engineer. Hgb Blood Gas 11.2(L) 13.7 - 16.5 g/dL [facility] Comment:Noted by plant and instrument engineer. Oxyhemoglobin, Venous 86.5 % [facility] Comment:Noted by plant and instrument engineer. Carboxyhemoglob in, Venous 0.3 % [facility] Comment: Noted by plant and instrument engineer. Nonsmokers: 0.5-1.5% COHB Smokers: Variable, but usually less than 10% Toxic: 20-30% COHB Lethal: Greater than 60% COHB Methemoglobin, Venous 0.0 <=1.5 % [facility] Comment:Noted by plant and instrument engineer. Na Whole Blood 156(H) 135 - 145 mmol/L [facility] Comment:Noted by plant and instrument engineer. K Whole Blood 5.5(H) 3.5 - 5.0 mmol/L [facility] Comment: Noted by plant and instrument engineer. Please note: Patients with WBC >100,000 may have falsely elevated Potassium levels. Contact the Clinical Chemistry Laboratory if there are any questions. ICa Whole Blood 1.03(L) 1.15 - 1.33 mmol/L [facility] Comment: Noted by plant and instrument engineer. Note: ??Total bilirubin higher than 20 mg/dL may lead to falsely low ionized calcium. CL Whole Blood 100 98 - 107 mmol/L [facility] Comment:Noted by plant and instrument engineer. Gluc Whole Bld 132 65 - 199 mg/dL [facility] Comment: Noted by plant and instrument engineer. Diabetes: >=200 mg/dL plus symptoms Lactate WB 1.0 0.5 - 2.2 mmol/L [facility] Comment:Noted by plant and instrument engineer. Blood Gas Source Venous [facility] Blood 02/17/2024 9:34 AM EDT 02/17/2024 9:34 AM EDT Hayder Graham MD POINT OF CARE TEST ORDERABLES [facility] [place] [address] * (ABNORMAL) BLOOD GAS 2 ARTERIAL (02/17/2024 [...] Organization Address [facility] Co de Phone Number [facility] [place] [address] * POCT Glucose (02/17/2024 6:38 AM EDT) Glucose, POC 98 65 - 199 mg/dL [facility] Comment: Supplemental ranges: <140 mg/dL before meals <180 mg/dL all other times of the day Blood 02/17/2024 6:38 AM EDT 02/17/2024 6:38 AM EDT Hayder Graham MD POINT OF CARE TEST ORDERABLES Performing Organization Address [facility] de Phone Number [facility] [place] [address] * Transesophageal Echo/OR (02/17/2024 6:33 AM EDT) [...] [facility]-operative [facility] [...] on Sat02/17/24 at 1400, Until Discontinued, [place] teeth and / or gums. Scan the CHG vial in the [employer] Q-Care Oral Care Kit from floor stock. Ventilator-associated pneumonia prophylaxis For use in ICU/Critical care locations ONLY. Obtain kit from Floor Stock location. Scan CHG vial in the [facility] Q-Care Oral Care Kit, Routine Given 02/17/2024 [...] at 50% of previous rate. Call warehouse inventory clerk if goal not achieved at maximum [...] PHENYLephrine and/or vasopressin ineffective. Call pager # [phone] if initiated. Titrate to keep systolic blood [...] L/min/M2. Maximum volume 2 L. Call warehouse inventory clerk for additional fluid orders: pager #[phone]. Rate/Dose Verify 02/18/2024 8:00 AM EDT 1 mL/hr 1 mL/hr Rate/Dose Verify 02/18/2024 6:00 AM EDT 1 mL/hr 1 mL/hr Rate/Dose Verify 02/18/2024 4:00 AM EDT 1 mL/hr 1 mL/hr sodium chloride 0.9% infusion 10-30 mL/hr, Intravenous, DAILY PRN, Starting on Sat02/17/24 at 1307, Until Sat02/18/24 at 0835, Side port TKO rate, per [facility] nursing protocol. Rate/Dose Verify 02/17/2024 [...] Routine documented in this encounter Care Teams Collar Setter Relationship Specialty Start Date End Date Aparna Jordan APRN PCP - General Family Medicine 10/21/23 05/26/24 documented as of this encounter
--- OUTSIDE RECORDS SUMMARY | 2024-10-08 10:18 | XMS_ITS | Encounter Summary ---
Author Organization [facility] Address [facility] [place] [address] Care Team Providers Care Senior Trial Attorney Name Role Phone Gino Vanessa Lane DOTSON Primary Care Provider [phone] Encounter Details Date Type Department Care Team (Late st Contact Info) Description 02/24/2024 Orders Only Cardiac Surgery [facility] [place] [id number] Trudi Lester APRN [facility] [place] [address] Social History Tobacco Use Types Packs/Day Years Used Date Smoking Tobacco: Former Cigarettes Smokeless Tobacco: Never Comments:Quit 15 + years ago Alcohol Use Standard Drinks/Week Comments Yes 0 (1 standard drink = 0.6 oz pur e alcohol) rare [facility] Utilities Answer Date Recorded In the past 12 months has e [employer], gas, oil, or water [employer] threatened to shut off services in your [...] filedocumented in this encounter Care Teams Senior Trial Attorney Relationship Specialty Start Date End Date Vanessa Christian APRN PCP - General Family Medicine 10/21/23 05/26/24 documented as of this encounter
--- OUTSIDE RECORDS SUMMARY | 2024-10-08 10:18 | XMS_ITS | Encounter Summary ---
Author Organization [facility] Address [facility] [place] [address] Care Team Providers Care Photovoltaic Power Systems Engineer Name Role Phone Vanessa Christian MAURI Primary Care Provider [phone] Encounter Details Date Type Department Care Team (Latest Contact Info) Description 03/12/2024 1:30 PM EDT - 03/12/2024 11:59 PM EDT Hospital Encounter XRay at [address] [place] [address] Coronary artery disease, unspecified vessel or lesion type, unspecified whether angina present, unspecified whether [place] or transplanted heart Discharge Disposition: Home Social History Tobacco Use Types Packs/Day Years Used Date Smoking Tobacco: Former Cigarettes Smokeless Tobacco: Never Comments:Quit 15 + years ago Alcohol Use Standard Drinks/Week Comments Yes 0 (1 standard drink = 0.6 oz pur e alcohol) rare [facility] Utilities Answer Date Recorded In the past 12 months has e [employer], gas, oil, or water [employer] threatened to shut off services in [...] type, unspecified whether angina present, unspecified whether [place] or transplanted heart documented in this encounter Results * XR Chest PA & Lateral (Generic) (03/12/2024 1:42 PM EDT) WORKSTATION ID [id number] RAD Anatomical Region Laterality Modality Chest N/A [...] have questions please contact the health care mgr that requested your imaging first. ? Narrative 03/13/2024 8:28 AM EDT EXAMINATION: XR CHEST PA AND LATERAL (GENERIC) CLINICAL HISTORY: s/p cabg eval effusions I25.10, Atherosclerotic heart disease of [place] coronary artery without angina pectoris TECHNIQUE: PA [...] eval effusions I25.10, Atherosclerotic heart disease of [place] coronary artery withoutangina pectoris TECHNIQUE: PA and [...] who have questions please contactthe health care mgr that requested your imaging first. Zak Farmer MD IMG DX ORDERABLES documented in this encounter Visit Diagnoses Diagnosis Coronary artery disease, unspecified vessel or lesion type, unspecified whether angina present, unspecified whether [place] or transplanted heart documented in this encounter Care Teams Photovoltaic Power Systems Engineer Relationship Specialty Start Date End Date Vanessa Christian APRN PCP - General Family Medicine 10/21/23 05/26/24 documented as of this encounter
--- OUTSIDE RECORDS SUMMARY | 2024-10-08 10:19 | XMS_ITS | Encounter Summary ---
Author Organization [facility] [place] [address] Care Team Providers Care Air Traffic Systems Technician Name Role Phone Vanessa Christian APRN Primary Care Provider [phone] Encounter Details Date Type Department Care Team (Late st Contact Info) Description 10/21/2023 Abstract Cardiology at [address] [place] [address] Adam Mayes RN Social History [...] filedocumented in this encounter Care Teams Air Traffic Systems Technician Relationship Specialty Start Date End Date Vanessa Christian APRN PCP - General Family Medicine 10/21/23 05/26/24 documented as of this encounter
--- OUTSIDE RECORDS SUMMARY | 2024-10-08 10:19 | XMS_ITS | Encounter Summary ---
Author Organization [facility] [place] [address] Care Team Providers Care Farmworker Poultry Name Role Phone Vanessa Christian APRN Primary Care Provider [phone] Encounter Details Date Type Department Care Team (Late st Contact Info) Description 10/21/2023 Abstract Cardiology at [address] [place] [address] Adam Mayes RN Social History [...] filedocumented in this encounter Care Teams Farmworker Poultry Relationship Specialty Start Date End Date Vaenssa Christian APRN PCP - General Family Medicine 10/21/23 05/26/24 documented as of this encounter
--- OUTSIDE RECORDS SUMMARY | 2024-10-08 10:19 | XMS_ITS | Encounter Summary ---
Author Organization [facility] [place] [address] Care Team Providers Care Life Scientist Name Role Phone Vanessa Christian Lane DOTSON Primary Care Provider [phone] Reason for Referral * Diagnostic Test (Routine) - Closed Specialty Diagnoses / Procedures Referred By Contac t Referred To Contact Radiology Diagnoses Nonrheumatic aortic valve stenosis Procedures CT Chest wo Contrast (Generic) Louisa Cho PA [facility] [place] [address] [facility] [place] [address] Referral ID Status Reason Start Date Expiration Date V isits Requested Visits Authorized [id number] Closed Specialty Service Requested 01/10/2024 07/11/2025 1 1 Reason for Visit * Diagnostic Test (Routine) - Closed Specialty Diagnoses / Procedures Referred By Contac t Referred To Contact Radiology Diagnoses Nonrheumatic aortic valve stenosis Procedures CT Chest wo Contrast (Generic) Louisa Cho PA [facility] [place] [address] [facility] [place] [address] Referral ID Status Reason Start Date Expiration Date V isits Requested Visits Authorized [id number] Closed Specialty Service Requested 01/10/2024 07/11/2025 1 1 Encounter Details Date Type Department Care Team (Latest Contact Info) Description 02/03/2024 7:36 AM EDT - 02/03/2024 8:05 AM EDT Hospital Encounter CT Scan at [facility] [place] [address] Zak Farmer MD [facility] [place] [address] Nonrheumatic aortic valve stenosis Discharge Disposition: Home Social History Tobacco Use Types Packs/Day Years Used Date Smoking Tobacco: Former Cigarettes Smokeless Tobacco: Never Comments:Quit 15 + years ago Alcohol Use Standard Drinks/Week Comments Yes 0 (1 standard drink = 0.6 oz pur e alcohol) rare [facility] Inpatient Questions Answer Date Recorded Does Anyone [...] wo Contrast (Generic) (02/03/2024 7:44 AM EDT) [email or web address] Signature WORKSTATION ID [id number] RAD Anatomical Region Laterality Modality Chest Computed [...] ? Electronically signed by: Rogerio Wright MD, [facility] ([phone]), at 02/03/2024 10:00 AM Narrative 02/03/2024 10:00 [...] group leader that requested your imaging first. Zak Farmer MD IMG CT ORDERABLES documented in this encounter Visit Diagnoses Diagnosis Nonrheumatic aortic valve stenosis Aortic valve disorders documented in this encounter Care Teams Life Scientist Relationship Specialty Start Date End Date Vanessa Christian APRN PCP - General Family Medicine 10/21/23 05/26/24 documented as of this encounter"
--- OUTSIDE RECORDS SUMMARY | 2024-10-08 10:19 | XMS_ITS | Encounter Summary ---
Author Organization [facility] [place] [address] Care Team Providers Care Lamp Inspector Name Role Phone Aparna Jordan MAURI Primary Care Provider [phone] Reason for Visit * Auth/Cert (Routine) Specialty [...] MD [facility] [place] [address] [facility] Referral ID Status Reason Start Date Expiration Date Visits Re quested Visits Authorized [id number] 1 1 Encounter Details Date Type Department Care Team (Late st Contact Info) Description 02/17/2024 7:30 AM EDT - 02/17/2024 1:26 PM EDT Surgery [place] [id number] Hayder Graham MD [facility] [place] [address] ENDOSCOPIC HARVEST VEIN(S) FOR CABG (WRVU 0.31) [...] Patient Age: 63 y.o. Birthdate: 1960 Language: Martiniquais Race: White Ethnicity: Not nor Admit Date: 02/17/2024 Discharge Date: 02/24/24 Attending Physician: Hayder Graham MD Follow-up Recommendations for Providers: Please continue routine management of cardiovascular risk factors including blood pressure, lipids,glucose, etc. Please note any changes to medications. Patient to follow up with PCP, Aparna Jordan APRN, in 1-2 weeks. Patient to follow up with Mask Inspector, Neftali Ernandez MD , in 2 weeks. Patient to follow up with Cardiac Surgeon, Dr. Hayder Graham, with a chest x-ray, EKG, and Echo. 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 Past Surgical History: Procedure Laterality Date PRO CABG, ARTERIAL, SINGLE N/A 02/17/2024 @CABG, USING ARTERIAL GRAFT;SINGLE ARTERIAL GRAFT (WRVU 33.75) performed by Hayder Graham MD at [facility] MAIN OR PRO CABG, ARTERY-VEIN, TWO N/A 02/17/2024 @CABG, TWO VENOUS GRAFTS & ARTERIAL GRAFT (WRVU 7.93) performed by Hayder Graham MD at [facility] MAIN OR PRO ENDOSCOPY W/VIDEO-ASST VEIN HARVEST, CABG Left 02/17/2024 ENDOSCOPIC HARVEST VEIN(S) FOR CABG (WRVU 0.31) performed by Hayder Graham MD at [facility] MAIN OR PRO REPLACEMENT PROSTHETIC AORTIC VALVE OPEN W CARDIOPULMONARY BYPASS HOMOGRF/STENT N/A 02/17/2024 @REPLACE AORTIC VALVE, OPEN, W\CPB, W\PROSTHETIC VALVE (WRVU 41.32) performed by Hayder Graham MD at [facility] MAIN OR Prior To Admission Medications [...] insufficiency. He has glaucoma. [facility]. He has undergone prior herniorrhaphy. 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 Major Procedures/Operations: 02/17/24 s/p avr/cabgx3 CABG x 3 JOSE->LAD SVG->dRCA SVG->OM1 EVH from LLE AVR with a 23 mm Inspiris Bioprosthesis Hospital Course: Karlos Garcia was admitted to [facility] on 02/17/2024 via the Same Day [...] Hayder Graham and/or the Cardiac Surgery Physician Laboratory Courier Team may be reached at . Antibiotic [...] Please refer to the card with the [place] [employer] Guidelines for more information. You [...] Dr. Hayder Graham. You may use a [place] Track or treadmill but avoid any pulling [...] friends, go to a movie, go to scientologist, etc. Heavy activities: No hunting, skiing, jogging, [...] should resume a low fat, low cholesterol, [place] [employer] Diet. Driving: No driving until [...] while being managed by your PCP and/or Mask Inspector. For future medication refills, please refer to your PCP and/or Mask Inspector after your discharge from our service. Thank you REMOVE CHEST TUBE SUTURES ON OR AFTER 03/02/24 Home oxygen therapy: N/A Follow up appointments: You should follow up with your PCP, Aparna Jordan APRN, in 1-2 weeks. Our office will schedule an appointment with your Mask Inspector, Neftali Ernandez MD , in 2 weeks. You have an appointment with your Cardiac Surgeon, Dr. Hayder Graham, 4 weeks with a chest x-ray, EKG, and Echo before your appointment. Cardiac Rehabilitation: Karlos Garcia was seen regarding participation in the outpatient Phase 2Cardiac Rehabilitation at [facility]. The patient agrees to a referral to this program. The referral will be sent at discharge and the patient should be contacted by the Program within 1- 2 weeks from discharge. Future Appointments and Orders Future Orders Complete By Expires Echocardiogram Transthoracic [91673 CPT(R)] 03/26/2024 09/25/2024 Process Instructions: Scheduling Instructions: Questions: Where will study be performed?: [facility] Does the patient have Congenital Heart Disease?: Does patient require sedation?: Sedation rationale: XR Chest PA & Lateral (Generic) [32530 54306 Custom] 03/26/2024 09/25/2024 Process Instructions: Scheduling Instructions: Questions: Portable exam?: Reason for exam and clinical history: s/p avr/cabg Clinical information / jerome questions for radiologist: Stat read required?: Date of injury if applicable: Requested Time: Where will study be performed?: [facility] Radiology Referral to Cardiac Rehab [[id number] Custom] As directed Process Instructions: If no progress note charted, please enter Clinical details in comments. Scheduling Instructions: Questions: My question or request is: s/p AVR/CABG. Cardiac rehab at [facility]. Referral to Home Health [REF34 Custom] As directed Process Instructions: If no progress note charted, please enter Clinical details in comments. Scheduling Instructions: Comments: Please evaluate Karlos Garcia for admission to Home Health. [address] Phone Number: Date of : 1960 Inpatient DOCUMENTATION FOR VNA SERVICES (INCLUDING THOSE PATIENTS WITH MEDICARE COVERAGE REQUIRING HOME VNA SERVICES AND/OR HOSPICE SERVICES) PATIENT'S LOCATION: Karlos Garcia [address] [place] [phone] Sawsmith's Name: self/family In discussion with the attending physician, it is certified that this patient is under their care and that they, or a Nurse Practitioner, or Physician Laboratory Courier who is working directly with them, hada [...] AGENCY: [facility] [address] [place] [address] RN orders: Cardiopulmonary assessment, incisional assessment, assess [...] issues please call the Cardiology Office at [phone] FOR MEDICARE ONLY: (please delete this section [...] As above. Signed: NEFTALI MENON PA-C [facility] Section of Cardiac Surgery [facility] [phone] FAX [phone] Date: 02/24/2024 CC: Aparna Jordan, MAURI Jordan, Aparna Sherman APRN [address] [place] [address] documented in this encounter Discharge Instructions * [...] Hayder Graham and/or the Cardiac Surgery Physician Laboratory Courier Team may be reached at . Antibiotic [...] Please refer to the card with the [place] [employer] Guidelines for more information. You [...] Dr. Hayder Graham. You may use a [place] Track or treadmill but avoid any pulling [...] friends, go to a movie, go to scientologist, etc. Heavy activities: No hunting, skiing, jogging, [...] should resume a low fat, low cholesterol, [place] [employer] Diet. Driving: No driving until [...] while being managed by your PCP and/or Mask Inspector. For future medication refills, please refer to your PCP and/or Mask Inspector after your discharge from our service. Thank you REMOVE CHEST TUBE SUTURES ON OR AFTER 03/02/24 Home oxygen therapy: N/A Follow up appointments: You should follow up with your PCP, Aparna Jordan APRN, in 1-2 weeks. Our office will schedule an appointment with your Mask Inspector, Neftali Ernandez MD , in 2 weeks. You have an appointment with your Cardiac Surgeon, Dr. Hayder Graham, 4 weeks with a chest x-ray, EKG, and Echo before your appointment. Cardiac Rehabilitation: Karlos Garcia was seen regarding participation in the outpatient Phase 2Cardiac Rehabilitation at [facility]. The patient agrees to a referral [...] 0600 and on the weekends please page [phone]. * Eric Barahona PA - 02/23/2024 9:27 [...] 0600 and on the weekends please page [phone]. * Tiffanie Owens, TANBARK LABORER - 02/22/2024 2:48 PM EDT Physical Therapy [...] d/c for 10 days. 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 He works Precautions/Special Considerations: STERNAL [...] LRAD and supervision Time IN / OUT: 9905-8428 Total Time: 30 minutes; TEFx2 Tiffanie Owens Pager: [phone] Physical Therapy Inpatient Rehabilitation Department * Romeo [...] 0600 and on the weekends please page [phone]. * Kelley Hinson TANBARK LABORER - 02/21/2024 10:15 AM EDT Physical Therapy [...] d/c for 10 days. 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 He works Precautions/Special Considerations: STERNAL [...] LRAD and supervision Time IN / OUT: 4779-8960 Total Time: 25 minutes; TEF 2 Kelley Hinson PTA Pager: [phone] Physical Therapy Inpatient Rehabilitation Department * Louisa [...] 0600 and on the weekends please page [phone]. * Kelley Hinson PTA - 02/20/2024 3:32 [...] at that time Kelley Hinson PTA Pager: [phone] Physical Therapy Inpatient Rehab Department * Louisa [...] 0600 and on the weekends please page [phone]. * Maris Benavides, PT - 02/19/2024 11:22 [...] d/c for 10 days. 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 Precautions/Special Considerations: STERNAL [...] outlined inthis evaluation. MARIS BENAVIDES, PT Pager: [phone] Physical Therapy Inpatient Rehabilitation Department Time IN / OUT: 8019-8114 Total Time: 38 (eval) minutes; * Antonio [...] 0600 and on the weekends please page [phone]. * Minnie Begum PA - 02/18/2024 8:25 [...] 0600 and on the weekends please page [phone]. * Kim Ha RCP - 02/17/2024 2:25 [...] plan since last visit. Hayder Graham MD [phone] Source Note - Hayder Graham MD - [...] given written informed consent. Hayder Graham MD [phone] * Hayder Graham MD - 02/17/2024 7:00 [...] given written informed consent. Hayder Graham MD [phone] documented in this encounter Miscellaneous Notes * [...] for follow-up Home Health & Hospice, [address] [place] [address] Cardiac Rehab, [address] [place] [address] Transportation: family or friend will provide Functional status prior to admission: Independent Home Environment: Others in the home: alone. Current Living Arrangements: home/apartment/condo. Accessibility Concerns:a few steps to enter 1 floor home. Current Functional Ability: Assistive Person and Equipment DME used at home: none DME Needed at Discharge: N/A Patient is insured through: Primary Insurance: [employer] Payor: [facility] / Plan: [facility] PPO / Product Type: *No [...] pain managed with scheduled Tylenol. Worked with [employer]. Ambulated in the roque multiple times during [...] is insured through: Primary Insurance: [facility] Payor: [facility] / Plan: [facility] PPO / Product Type: *No [...] Referrals: [facility] [address] [place] [address] Transportation: family or friend will provide Barriers to discharge: Discharge planning Plan going forward: Service Care Management will continue to follow and assist with discharge planning and coordination of care as indicated. Anticipated Date of Discharge: 02/22/2024 Rhett Bell RN RN/CM - Cellphone: [phone] Pager: [phone] Covering Service RN/CM * Plan of Care [...] Yang RN - 02/19/2024 10:44 AM EDT [facility]ARD[facility]HABILITATION Karlos Garcia was seen today regarding participation in the outpatient Phase 2 Cardiac Rehabilitation at [facility]. 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 (Only good for 180 days) Any patient receiving care in [place] must abide by [place] law. The hierarchy [...] (i) The agent with financial power of document review attorney or a conservator appointed in accordance [...] In the past 12 months has the [employer], gas, oil, or water [employer] threatened to shut off services in your [...] as: [address] [facility] [address] Physical address: [address] [facility], [address] Social & Family Supports: All names listed [...] noted Health/Prescription Coverage: Primary Insurance: [facility] Payor: [facility] / Plan: [facility] PPO / Product Type: *No Product type* / Secondary Insurance: N/A ; Prescription Coverage: Yes Preferred Pharmacy: [id number] [address] Status: Patient is a : No Primary Care Provider confirmed: Aparna Jordan, MAURI [phone] Patient/Caregiver Goals of Treatment: dc to home Potential Needs for Transition of Care: home health care Agency Referrals: I have met with the patient to: discuss discharge planning needs. provide the [facility], Office of Care Management letter from the Obstetrics Teacher pertaining to rehab referrals. provide a letter describing our affiliations within the [facility] and educate about their right to choose where referrals are sent. provide a list of Home Health Agencies / Durable Medical Equipment vendors which serve their preferred geographic area. provided patient with [facility] Star Quality Rating handout. They have requested referrals to: [facility] [address] [place] [address] Note routed to a Design Lead who will communicate referrals to facilities and [...] Reina Greene RN CM, BSN, CMGT-BC Ext [phone] * Plan of Care - Binta Trinidad [...] Operative Note Patient Name: Karlos Garcia : [id number] MR#: [id number] Case Date: 02/17/2024 Surgeon: Surgeon(s) and Role: * Hayder Graham MD - Primary * Neftali Menon PA - Physician Laboratory Courier Preoperative diagnosis: CAD Postoperative diagnosis: CAD, intraoperative [...] mL Drains: Mediastinal and Left pleural Disposition: [facility] Condition: doing well without problems Attestation: Case Date: 02/17/2024 I performed this procedure without the involvement of a resident. HAYDER GRAHAM MD 02/17/2024 * Op Note - Hayder Graham MD - 02/17/2024 8:20 AM EDT [facility] Operative Note Patient Name: Karlos Garcia : [id number] MR#: [id number] Case Date: 02/17/2024 Surgeon: Surgeons and Role: * Hayder Graham MD - Primary * Neftali Menon PA - Physician Laboratory Courier Preoperative diagnosis: CAD Postoperative diagnosis: CAD, intraoperative [...] mL Drains: Mediastinal and Left pleural Disposition: [facility] Procedure Description: The patient was [...] Aortic Valve Open W Cardiopulmonary Bypass Homogrf/Stent (59428) Yes 02/17/2024 7:28 AM EDT CAD Cabg, Artery-Vein, Two (61336) Yes 02/17/2024 7:28 AM EDT CAD Cabg, Arterial, Single (70494) Yes 02/17/2024 7:28 AM EDT CAD Endoscopy W/Video-Asst Vein Ta[place], Cabg (10716) Yes 02/17/2024 7:28 AM EDT CAD POCT [...] CHEMISTRY ORDERABLE S [facility] [place] [address] * (ABNORMAL) Basic Metabolic Panel (non-fasting) (02/23/2024 [...] Carpio MD CHEMISTRY ORDERABLES Performing Organization Address [facility] Co de Phone Number [facility] [place] [address] * Potassium (02/22/2024 4:30 AM EDT) Potassium [...] MD CHEMISTRY ORDERABLE S Performing Organization Address [facility] Co de Phone Number [facility] [place] [address] * (ABNORMAL) Basic Metabolic Panel (non-fasting) (02/21/2024 [...] MD CHEMISTRY ORDERABLES [facility] [place] [address] * Lactate, whole blood, send to lab ([facility]) (02/21/2024 9:45 AM EDT) Lactate WB 2.0 0.5 - 2.2 mmol/L [facility] Blood 02/21/2024 9:45 AM EDT 02/21/2024 9:52 AM EDT Narrative Resulting Agency Comment Spec In Lab Hayder Graham MD CHEMISTRY ORDERABLE S Performing Organization Address City/[facility]/ZIP Co de Phone Number [facility] [place] [address] * (ABNORMAL) Hepatic Function Panel (02/21/2024 9:45 [...] ORDERABLE S Performing Organization Address City/[facility]/ZIP Co de Phone Number [facility] [place] [address] * Lipase (02/21/2024 9:45 AM EDT) Pathologist [facility] Lipase 56 0 - 60 unit/L [facility] Blood 02/21/2024 9:45 AM EDT 02/21/2024 9:52 AM EDT Narrative Resulting Agency Comment Spec In Lab Hayder Graham MD CHEMISTRY ORDERABLE S Performing Organization Address [facility] Co de Phone Number [facility] [place] [address] * Amylase (02/21/2024 9:45 AM EDT) Amylase 69 28 - 100 unit/L [facility] Blood 02/21/2024 9:45 AM EDT 02/21/2024 9:52 AM EDT Narrative Resulting Agency Comment Spec In Lab Hayder Graham MD CHEMISTRY ORDERABLE S Performing Organization Address [facility] de Phone Number [facility] [place] [address] * Potassium (02/21/2024 3:08 AM EDT) Pathologist [facility] Potassium 3.8 3.5 - 5.0 mmol/L [facility] [...] MD CHEMISTRY ORDERABLE S Performing Organization Address [facility] Co de Phone Number [facility] [place] [address] * XR Chest PA & Lateral (Generic) (02/20/2024 10:19 AM EDT) WORKSTATION ID [id number] RAD Anatomical Region Laterality Modality Chest N/A Digital Radiogra phy Impressions 02/20/2024 1:11 PM EDT Small pleural effusions. No pneumothorax Thank you for letting us participate in the care of this patient. ??If you are a health care provider and have any questions regarding this report, please contact the number below. ??For patients who have questions please contact the health ocular care technologist that requested your imaging first. ? Electronically signed by: Rogerio Cruz MD, [facility] ??([phone]), at 02/20/2024 1:11 PM Narrative 02/20/2024 1:11 PM EDT EXAMINATION: XR CHEST PA AND LATERAL (GENERIC) CLINICAL HISTORY: s/p AVR/CABGx3 TECHNIQUE: PA and lateral views of the chest COMPARISON: 02/17/2024 FINDINGS: Support devices: Interval removal of [place]-Kaila catheter, endotracheal tube and mediastinal chest tubes The cardiac silhouette is stable status post median sternotomy, CABG and aortic valve replacement. There are small pleural effusions. No pneumothorax. Procedure Note Rogerio Cruz MD - 02/20/2024 EXAMINATION: XR CHEST PA AND LATERAL (GENERIC) CLINICAL HISTORY: s/p AVR/CABGx3 TECHNIQUE: PA and lateral views of the chest COMPARISON: 02/17/2024 FINDINGS: Support devices: Interval removal of [place]-Kaila catheter, endotracheal tubeand mediastinal chest tubes The [...] patients who have questions please contactthe health ocular care technologist that requested your imaging first. Hayder Graham MD IMG DX ORDERABLES * Scan, Peripheral Blood (02/20/2024 4:23 AM EDT) Plat estimate Decreased [facility] RBC Morphology Normal [facility] Blood 02/20/2024 4:23 AM EDT 02/20/2024 4:42 AM EDT Narrative Resulting Agency Comment Spec In Lab Minnie FRENCH HEMATOLOGY CECILIO ALEMAN [facility] [place] [address] * (ABNORMAL) Differential, Automated (02/20/2024 4:23 AM EDT) Pathologist [facility] Neutrophil % 81.7 % [facility] Neutrophil Absolute 10.37(H) 1.70 - 6.10 x10(3)/mc L [facility] Lymph % 7.4 % [facility] Lymphocytes Abs 0.9 0.9 - 3.2 x10(3)/mc L [facility] Monocyte % 9.7 % [facility] Monocyte Abs 1.2(H) 0.3 - 0.9 x10(3)/mc L [facility] Eos % 0.1 % [facility] Eosinophils Abs 0.0 0.0 - 0.4 x10(3)/mc L [facility] Basophil % 0.2 % [facility] [...] HEMATOLOGY CECILIO ALEMAN [facility] [place] [address] * (ABNORMAL) Hemogram (02/20/2024 4:23 AM EDT) [...] HEMATOLOGY CECILIO ALEMAN [facility] [place] [address] * (ABNORMAL) Basic Metabolic Panel (non-fasting) (02/20/2024 [...] ORDERABLE S Performing Organization Address City/[facility]/ZIP Co de Phone Number [facility] [place] [address] * Potassium (02/19/2024 3:57 AM EDT) Potassium [...] MD CHEMISTRY ORDERABLE S Performing Organization Address [facility] Co de Phone Number [facility] [place] [address] * POCT Glucose (02/18/2024 8:24 AM EDT) Glucose, POC 157 65 - 199 mg/dL [facility] Comment: Supplemental ranges: <140 mg/dL before meals <180 mg/dL all other times of the day Blood 02/18/2024 8:24 AM EDT 02/18/2024 8:24 AM EDT Hayder Graham MD POINT OF CARE TEST ORDERABLES Performing Organization Address [facility]/ZIP Co de Phone Number [facility] [place] [address] * Scan, Peripheral Blood (02/18/2024 1:40 AM EDT) Plat estimate Decreased [facility] RBC Morphology Normal [facility] Blood 02/18/2024 1:40 AM EDT 02/18/2024 1:56 AM EDT Narrative Resulting Agency Comment Spec In Lab Neftali FRENCH HEMATOLOGY ORDER OLE [facility] [place] [address] * (ABNORMAL) Differential, Automated (02/18/2024 1:40 AM EDT) Neutrophil % 87.1 % [facility] Neutrophil Absolute 15.03(H) 1.70 - 6.10 x10(3)/mc L [facility] Lymph % 3.0 % [facility] Lymphocytes Abs 0.5(L) 0.9 - 3.2 x10(3)/mc L [facility] Monocyte % 9.1 % [facility] Monocyte Abs 1.6(H) 0.3 - 0.9 x10(3)/mc L [facility] Eos % 0.0 % [facility] Eosinophils Abs 0.0 0.0 - 0.4 x10(3)/mc L [facility] Basophil % 0.2 % [facility] [...] HEMATOLOGY ORDER OLE [facility] [place] [address] * (ABNORMAL) Hemogram (02/18/2024 1:40 AM EDT) [...] [facility] NRBC% auto 0.0 % [facility] NRBC Absolute 0.000 0.000 - 0.000 x10(3)/mc L [facility] Blood 02/18/2024 1:40 AM EDT 02/18/2024 1:56 AM EDT Narrative Resulting Agency Comment Spec In Lab Neftali FRENCH HEMATOLOGY ORDER OLE [facility] [place] [address] * (ABNORMAL) Basic Metabolic Panel (non-fasting) (02/18/2024 [...] CHEMISTRY ORDERABLE S [facility] [place] [address] * (ABNORMAL) Troponin (02/18/2024 1:40 AM EDT) [...] troponin value can be found in the Replaced By [facility] Test Catalog Troponin - Replaced By [facility] Test Catalog Reference: Fourth [place] Definition of Myocardial Infarction. Journal of the [place] [employer] 2018;72:5706-6055 Blood 02/18/2024 1:40 AM EDT 02/18/2024 1:56 AM EDT Narrative Resulting Agency Comment Spec In Lab Hayder Graham MD CHEMISTRY ORDERABLE S [facility] [place] [address] * POCT Glucose (02/17/2024 8:13 PM EDT) Glucose, POC 142 65 - 199 mg/dL [facility] Comment: Supplemental ranges: <140 mg/dL before meals <180 mg/dL all other times of the day Blood 02/17/2024 8:13 PM EDT 02/17/2024 8:13 PM EDT Hayder Graham MD POINT OF CARE TEST ORDERABLES Performing Organization Address [facility] Co de Phone Number [facility] [place] [address] * POCT Glucose (02/17/2024 5:42 PM EDT) Glucose, POC 160 65 - 199 mg/dL [facility] Comment: Supplemental ranges: <140 mg/dL before meals <180 mg/dL all other times of the day Blood 02/17/2024 5:42 PM EDT 02/17/2024 5:42 PM EDT Hayder Graham MD POINT OF CARE TEST ORDERABLES Performing Organization Address [facility] Co de Phone Number [facility] [place] [address] * Hemoglobin (02/17/2024 5:42 PM EDT) [facility] Signature Hemoglobin 13.7 13.7 - 16.5 g/dL [facility] Blood 02/17/2024 5:42 PM EDT 02/17/2024 6:10 PM EDT Narrative Resulting Agency Comment Spec In Lab Hayder Graham MD HEMATOLOGY ORDERABL ES Performing Organization Address [facility] Co de Phone Number [facility] [place] [address] * Potassium (02/17/2024 5:42 PM EDT) [facility] Signature Potassium 4.3 3.5 - [...] CHEMISTRY ORDERABLE S [facility] [place] [address] * (ABNORMAL) BLOOD GAS 2 ARTERIAL (02/17/2024 [...] [facility] FIO2 Art 40 % [facility] PF Ratio Art 195 [facility] Blood 02/17/2024 4:18 PM EDT 02/17/2024 4:18 PM EDT Hayder Graham MD POINT OF CARE TEST ORDERABLES [facility] [place] [address] * XR Chest One View (02/17/2024 1:44 PM EDT) Cardia WORKSTATION ID [id number] DH RAD Anatomical Region Laterality Modality Chest N/A Digital Radiogra phy Impressions 02/17/2024 2:12 PM EDT 1. ??No definite pleural fluid collection or pneumothorax. 2. ??Right IJ [place]a catheter tip terminates in a descending branch of the right pulmonary artery. Suggest catheter retraction. 3. ??Additional support lines and tubes as above. Thank you for letting us participate in the care of this patient. ??If you are a health care provider and have any questions regarding this report, please contact the number below. ??For patients who have questions please contact the health ocular care technologist that requested your imaging first. ? Electronically signed by: Denzel Hankins MD, [facility] ??([phone]), at 02/17/2024 2:12 PM Narrative 02/17/2024 2:12 PM EDT EXAMINATION: XR CHEST ONE VIEW CLINICAL HISTORY: s/p avr/cabg eval effusions TECHNIQUE: 1 view of the chest COMPARISON: Chest x-ray 01/09/2024, chest CT 02/03/2024 FINDINGS: ET tube tip terminates 5.2 cm above the carlos. Right IJ [place]-Kaila catheter tip terminates in a descending branch [...] 5.2 cm above the carlos. Right IJ [place]-Ganzcatheter tip terminates in a descending branch of [...] fluid collection or pneumothorax. 2. Right IJ [place]a catheter tip terminates in a descending branch ofthe right pulmonary artery. Suggest catheter retraction. 3. Additional support lines and tubes as above. Thank you for letting us participate in the care of this patient. If youare a health care provider and have any questions regarding this report,please contact the number below. For patients who have questions please contactthe health ocular care technologist that requested your imaging first. Electronically signed by: Denzel Hankins MD, [facility]([phone]), at 02/17/2024 2:12 PM Hayder Graham MD [...] [facility] FIO2 Art 100 % [facility] PF Ratio Art 320 [facility] Blood 02/17/2024 1:31 PM EDT 02/17/2024 1:31 PM EDT Hayder Graham MD POINT OF CARE TEST ORDERABLES [facility] [place] [address] * (ABNORMAL) Coox2 (02/17/2024 1:21 PM EDT) [...] TEST ORDERABLES Performing Organization Address City/[facility]/ZIP Co de Phone Number [facility] [place] [address] * (ABNORMAL) BLOOD GAS 2 ARTERIAL (02/17/2024 [...] OF CARE TEST ORDERABLES Performing Organization Address [facility] Co de Phone Number [facility] [place] [address] * (ABNORMAL) Fibrinogen (02/17/2024 12:10 PM EDT) [...] MD HEMATOLOGY ORDERABLE S Performing Organization Address [facility] Co de Phone Number [facility] [place] [address] * (ABNORMAL) Thrombin time (02/17/2024 12:10 PM [...] MD HEMATOLOGY ORDERABLE S Performing Organization Address [facility] Co de Phone Number [facility] [place] [address] * APTT (02/17/2024 12:10 PM EDT) Partial [...] MD HEMATOLOGY ORDERABLE S Performing Organization Address [facility] Co de Phone Number [facility] [place] [address] * (ABNORMAL) Prothrombin Time (02/17/2024 12:10 PM [...] HEMATOLOGY ORDERABLE S [facility] [place] [address] * (ABNORMAL) Hemogram (02/17/2024 12:10 PM EDT) [...] [facility] NRBC% auto 0.0 % [facility] NRBC Absolute 0.000 0.000 - 0.000 x10(3)/mc L [facility] Blood 02/17/2024 12:1 0 PM EDT 02/17/2024 12:19 PM EDT Narrative Resulting Agency Comment Spec In Lab Tara York MD HEMATOLOGY ORDERABLE S [facility] [place] [address] * (ABNORMAL) BLOOD GAS 2 ARTERIAL (02/17/2024 [...] [facility] Comment: Noted by instrument installer. Please note: Patients with WBC >100,000 may [...] CARE TEST ORDERABLES [facility] [address] [place] [address] * (ABNORMAL) BLOOD GAS 2 ARTERIAL (02/17/2024 [...] [facility] Comment: Noted by instrument installer. Please note: Patients with WBC >100,000 may [...] OF CARE TEST ORDERABLES Performing Organization Address [facility] de Phone Number [facility] [place] [address] * (ABNORMAL) Hemoglobin and Hematocrit, blood (02/17/2024 [...] MD HEMATOLOGY ORDERABL ES Performing Organization Address [facility] de Phone Number [facility] [place] [address] * (ABNORMAL) Platelet count (02/17/2024 11:04 AM EDT) Platelet 106(L) 145 - 357 x10(3)/mc L [facility] Immature Plt % 1.6 0.0 - 7.4 % [facility] Comment: Limitation of the Immature Platelet Fraction (IPF)-May be less reliable when the platelet count is less than 65s031/uL due to statistical imprecision. The IPF value [...] in a decreased state of production. References: [employer] The Clinical Value of the Immature Platelet Fraction (IPF) in Cell Recovery Document Number [id number] 03/2011 [employer] The Role of the Immature Platelet Fraction (IPF) in the Differential Diagnosis of Thrombocytopenia, Document [id number] V002/15/14 Blood 02/17/2024 11:0 4 AM EDT 02/17/2024 11:12 AM EDT Narrative Resulting Agency Comment Spec In Lab Hayder Graham MD HEMATOLOGY ORDERABL ES Performing Organization Address City/[facility]/ZIP Co de Phone Number [facility] [place] [address] * (ABNORMAL) Fibrinogen (02/17/2024 11:04 AM EDT) [...] City/[facility]/ZIP Co de Phone Number [facility] [place] [address] * (ABNORMAL) BLOOD GAS 2 ARTERIAL (02/17/2024 [...] TEST ORDERABLES [facility] [place] [address] * (ABNORMAL) BLOOD GAS 2 ARTERIAL (02/17/2024 [...] OF CARE TEST ORDERABLES Performing Organization Address City/State/[facility] Co de Phone Number [facility] [place] [address] * Surgical Pathology Report (02/17/2024 10:01 AM EDT) Final Diagnosis [id number] ? Location: [facility]; [facility]; The signing pathologist has (i) examined the relevant preparation(s) for the specimen(s) and (ii) rendered or confirmed the diagnosis(es). . ?Surgical Pathology DIAGNOSIS Aortic valve leaflets, excision: Valve leaflets with myxoid degeneration, nodular fibrosis and dystrophic calcifications. Electronically signed by: ?Lindsay FERNANDEZ, Livier Gonzalez Verified: ??02/24/2024 13:49 ??Pathologist Performed at: ??-[facility] Dept. of Pathology, [place] [address] Obstetrics Teacher: Job Brewer MD, FCAP, ??CLIA Certificate: [id number] SPECIMEN(S) SUBMITTED A - Aortic Valve Leaflets, [...] Sections Processing Blocks submitted for decalcification: A1. Biomedical Equipment Tech sections in 1 cassette labeled A1. ??ajw 02/24/2024 1:49 PM EDT [facility] AORTIC STRUCTURE / Unknown 02/17/2024 10:01 AM EDT 02/17/2024 10:01 AM EDT Hayder Graham MD PATHOLOGY/[place] [address] * Specimen to Pathology (02/17/2024 10:01 AM EDT) AP Specimen 02/17/2024 10:0 1 AM EDT 02/17/2024 10:01 AM EDT Narrative [facility] - 02/17/2024 10:01 AM EDT Specimen requisition ordered. ??Separate Pathology report to follow Hayder Graham MD PATHOLOGY/CYTOLOGY ORDERABLES [facility] [place] [address] * (ABNORMAL) BLOOD GAS 2 ARTERIAL (02/17/2024 [...] CARE TEST ORDERABLES [facility] [place] [address] * (ABNORMAL) BLOOD GAS 2 VENOUS (02/17/2024 9:34 AM EDT) pH, Venous 7.22(Criti marquez) 7.32 - 7.42 [facility] Comment:Noted by instrument installer. PCO2, Venous 43 41 - 51 mmHg [facility] Comment:Noted by instrument installer. PO2, Venous 57(H) 25 - 40 mmHg [facility] Comment:Noted by instrument installer. Bicarbonate, Venous 17.1 mmol/L [facility] Comment:Noted by instrument installer. Base Excess, Venous -10.6 mmol/L [facility] Comment:Noted by instrument installer. Hgb Blood Gas 11.2(L) 13.7 - 16.5 g/dL [facility] Comment:Noted by instrument installer. Oxyhemoglobin, Venous 86.5 % [facility] Comment:Noted by instrument installer. Carboxyhemoglob in, Venous 0.3 % [facility] Comment: Noted by instrument installer. Nonsmokers: 0.5-1.5% COHB Smokers: Variable, but usually less than 10% Toxic: 20-30% COHB Lethal: Greater than 60% COHB Methemoglobin, Venous 0.0 <=1.5 % [facility] Comment:Noted by instrument installer. Na Whole Blood 156(H) 135 - 145 mmol/L [facility] Comment:Noted by instrument installer. K Whole Blood 5.5(H) 3.5 - 5.0 mmol/L [facility] Comment: Noted by instrument installer. Please note: Patients with WBC >100,000 may have falsely elevated Potassium levels. Contact the Clinical Chemistry Laboratory if there are any questions. ICa Whole Blood 1.03(L) 1.15 - 1.33 mmol/L [facility] Comment: Noted by instrument installer. Note: ??Total bilirubin higher than 20 mg/dL may lead to falsely low ionized calcium. CL Whole Blood 100 98 - 107 mmol/L [facility] Comment:Noted by instrument installer. Gluc Whole Bld 132 65 - 199 mg/dL [facility] Comment: Noted by instrument installer. Diabetes: >=200 mg/dL plus symptoms Lactate WB 1.0 0.5 - 2.2 mmol/L [facility] Comment:Noted by instrument installer. Blood Gas Source Venous [facility] Blood 02/17/2024 9:34 AM EDT 02/17/2024 9:34 AM EDT Hayder Graham MD POINT OF CARE TEST ORDERABLES [facility] [place] [address] * (ABNORMAL) BLOOD GAS 2 ARTERIAL (02/17/2024 [...] TEST ORDERABLES Performing Organization Address City/[facility]/ZIP Co de Phone Number [facility] [place] [address] * POCT Glucose (02/17/2024 6:38 AM EDT) Glucose, POC 98 65 - 199 mg/dL [facility] Comment: Supplemental ranges: <140 mg/dL before meals <180 mg/dL all other times of the day Blood 02/17/2024 6:38 AM EDT 02/17/2024 6:38 AM EDT Hayder Graham MD POINT OF CARE TEST ORDERABLES Performing Organization Address [facility] Co de Phone Number [facility] [place] [address] * Transesophageal Echo/OR (02/17/2024 6:33 AM EDT) [...] [facility] [...] Mishel Merrill RN)2324 (Given - Provider: Otis Croko RN) 0430 (Given - Provider: Otis Crook [...] Routine documented in this encounter Care Teams Lamp Inspector Relationship Specialty Start Date End Date Aparna Jordan APRN PCP - General Family Medicine 10/21/23 05/26/24 documented as of this encounter
--- OUTSIDE RECORDS SUMMARY | 2024-10-08 10:19 | XMS_ITS | Encounter Summary ---
Author Organization [facility] [place] [address] Care Team Providers Care Telegraph Equipment Maintainer Name Role Phone Vanessa Christian MAURI Primary [...] MD [facility] [place] [address] [facility] [[email or web address] Referral ID Status Reason Start Date Expiration Date Visits Re quested Visits Authorized [id number] 1 1 Encounter Details Date Type Department Care Team (Late st Contact Info) Description 02/17/2024 7:35 AM EDT Anesthesia Event Main Operating Room [facility] [place] [phone] Roman York MD [facility] [place] [address] Anesthesia Record Procedure Summary Procedure Name Responsible [...] by Sadiq Woo RN PIV 02/17/24; 0715; fkfi-tka-jeormq catheter system; 18 gauge; cephalic vein (lateral [...] th e electric, gas, oil, or water [employer] threatened to shut off services in your [...] Procedure Summary Date: 02/17/24 Room / Location: [facility] OR [address] [place] [address] MAIN OR Anesthesia Start: 734 Anesthesia Stop: [...] 4:28 AM EDT Pre-Anesthesia Evaluation for: Karlos Anthnoy a 63 y.o. male. Procedure(s): ENDOSCOPIC HARVEST [...] 08/14/2023 ??? Nevus of face 09/26/2023 Right jew No past surgical history on file. Social [...] mg documented in this encounter Care Teams Telegraph Equipment Maintainer Relationship Specialty Start Date End Date Vanessa Christian APRN PCP - General Family Medicine 10/21/23 05/26/24 documented as of this encounter
--- OUTSIDE RECORDS SUMMARY | 2024-10-08 10:19 | XMS_ITS | Encounter Summary ---
Author Organization [facility] [place] [address] Care Team Providers Care Cut Off Sawyer Name Role Phone Vanessa Christian APRN Primary Care Provider [phone] Encounter Details Date Type Department Care Team [...] on filedocumented in this encounter Care Teams Cut Off Sawyer Relationship Specialty Start Date End Date Vanessa Christian APRN PCP - General Family Medicine 10/21/23 05/26/24 documented as of this encounter
--- OUTSIDE RECORDS SUMMARY | 2024-10-08 10:19 | XMS_ITS | Encounter Summary ---
Author Organization [facility] [place] [address] Care Team Providers Care Tin Cutter Name Role Phone Vanessa Christian Lane DOTSON Primary Care Provider [phone] Encounter Details Date Type Department Care Team (Latest Contact Info) Description 01/09/2024 3:00 PM EDT [place] [id number] Nonrheumatic aortic valve stenosis Social History Tobacco Use Types Packs/Day Years Used Date Smoking Tobacco: Former Cigarettes Smokeless Tobacco: Never Comments:Quit 15 + years ago Alcohol Use Standard Drinks/Week Comments Yes 0 (1 standard drink = 0.6 oz pur e alcohol) rare REPLACED BY [facility] Inpatient Questions Answer Date Recorded Prevent Contact [...] stenosis TYPE AND SCREEN, SDP (FUTURE SURGERY, [facility] SAME DAY PROGRAM ONLY) Routine 01/09/2024 2:58 [...] [facility] Recheck Order Order Placed [facility] ABORH Type Recheck Completed [facility] Blood 01/09/2024 2:58 PM EDT 01/09/2024 3:08 PM EDT Narrative Resulting Agency Comment Spec In Lab Zak Farmer MD BLOOD BANK LAB ORDE ASH [facility] [place] [address] * Differential, Automated (01/09/2024 2:58 PM EDT) Neutrophil % 70.5 % [facility] Neutrophil Absolute 4.34 1.70 - 6.10 x10(3)/[facility] Lymph % 18.9 % [facility] Lymphocytes Abs 1.2 0.9 - 3.2 x10(3)/[facility] Monocyte % 8.0 % [facility] Monocyte Abs 0.5 0.3 - 0.9 x10(3)/[facility] Eos % 1.6 % [facility] Eosinophils Abs 0.1 0.0 - 0.4 x10(3)/[facility] Basophil % 0.5 % [facility] Baso Absolute 0.0 0.0 - 0.1 x10(3)/[facility] Immature Gran % 0.50 % [facility] Comment: Immature granulocytes(IG's)percentage and absolute count will include metamyelocytes, myelocytes, and promyelocytes. Blood smears from CBCs yielding IG's will be scanned manually for concordance. If this scan disagrees with the automated IG or if promyelocytes are noted, a manual differential will be performed. Immature Gran Absolute 0.03 0.00 - 0.04 x10(3)/[facility] Blood 01/09/2024 2:58 PM EDT 01/09/2024 3:03 PM EDT Narrative Resulting Agency Comment Spec In Lab Zak Farmer MD HEMATOLOGY ORDERABL ES [facility] [place] [address] * Hemogram (01/09/2024 2:58 PM EDT) White Blood Cell 6.2 4.0 - 9.5 x10(3)/[facility] Red Blood Cell 5.53 4.58 - 5.54 x10(6)/[facility] Hemoglobin 16.1 13.7 - 16.5 [...] CENTER LABORATORY Platelet 187 145 - 357 x10(3)/[facility] RDW Standard Deviation 39.2 36.0 - [address] [facility] RDW coefficient of variation 12.6 11.4 - 13.8 % [facility] Mean Platelet Volume 9.5 7.6 - 12.9 [facility] NRBC% auto 0.0 % [facility] NRBC Absolute 0.000 0.000 - 0.000 x10(3)/[facility] Blood 01/09/2024 2:58 PM EDT 01/09/2024 3:03 PM EDT Narrative Resulting Agency Comment Spec In Lab Zak Farmer MD HEMATOLOGY ORDERABL ES [facility] [place] [address] * Basic Metabolic Panel (non-fasting) (01/09/2024 2:58 [...] Organization Address [facility] Co de Phone Number [facility] [place] [address] * Hepatic Function Panel (01/09/2024 2:58 PM [...] Organization Address [facility] Co de Phone Number [facility] [place] [address] * Prothrombin Time (01/09/2024 2:58 PM EDT) [...] HEMATOLOGY ORDERABL ES Performing Organization Address City/[facility]/ZIP Co de Phone Number [facility] [place] [address] * Type and Screen Future Surgery, [facility] SAME DAY PROGRAM ONLY) (01/09/2024 2:58 PM EDT) ABORH Type O NEGATIVE [facility] Patient BB History Not Found [facility] Expires at [id number] on: 02-20-2024 [facility] Ab Screen Interp Negative [facility] Blood 01/09/2024 2:58 PM EDT 01/09/2024 2:58 PM EDT Narrative Resulting Agency Comment Spec In Lab Zak Farmer MD BLOOD BANK LAB ORDE RABLES [facility] [place] [address] documented in this encounter Visit Diagnoses Diagnosis Nonrheumatic aortic valve stenosis Aortic valve disorders documented in this encounter Care Teams Tin Cutter Relationship Specialty Start Date End Date Vanessa Christian APRN PCP - General Family Medicine 1/15/24 8/20/24 documented as of this encounter
--- OUTSIDE RECORDS SUMMARY | 2024-10-08 10:19 | XMS_ITS | Encounter Summary ---
[place] [address] Care Team Providers Care Placement Secretary Name Role Phone Victor M Lafleur MD Primary Care Provider [phone] Reason for Visit * Reason Onset Date Comments Referral 09/20/2023 Encounter Details Date Type Department Care Team (Late st Contact Info) Description 09/20/2023 Telephone Cardiology at [address] [phone] Karen Billy, repairer helper Social History Tobacco Use Types Packs/Day Years [...] on filedocumented in this encounter Care Teams Placement Secretary Relationship Specialty Start Date End Date Victor M Lafleur MD PCP - General 10/02/13 10/20/23 documented as of this encounter
--- OUTSIDE RECORDS SUMMARY | 2024-10-08 10:19 | XMS_ITS | Encounter Summary ---
Author Organization [facility] Address [facility] Ivana linareseileen [place] [id number] Care Team Providers Care Elevator Installer Apprentice Name Role Phone Vanessa Christian MAURI Primary Care Provider [phone] Reason for Referral * Consultation (Routine) - Closed Specialty Diagnoses / Procedures Referred By Contac t Referred To Contact Cardiac Surgery Diagnoses Nonrheumatic aortic valve stenosis significant - TAVR ( defers to Card Surg d/t age) Errol Loya MD [facility] [place] [address] Zak Farmer MD [facility] [place] [address] Referral ID Status Reason Start Date Expiration Date V isits Requested Visits Authorized [id number] Closed Consult, Test & Treat 10/21/2023 10/20/2024 1 1 Reason for Visit * Reason Comments Chest Pain Shortness of Breath Aortic Stenosis Encounter Details Date Type Department Care Team (Late st Contact Info) Description 10/21/2023 1:20 PM EST Office Visit Cardiology at [address] [phone] Errol Loya MD [facility] [place] [address] Nonrheumatic aortic valve stenosis Social History Tobacco [...] disorders documented in this encounter Care Teams Elevator Installer Apprentice Relationship Specialty Start Date End Date Vanessa Christian APRN PCP - General Family Medicine 10/21/23 05/26/24 documented as of this encounter
--- OUTSIDE RECORDS SUMMARY | 2024-10-08 10:19 | XMS_ITS | Encounter Summary ---
[place] [address] Care Team Providers Care Otter Trawler Boatswain Name Role Phone Vanessa Christian MAURI Primary Care Provider [phone] Reason for Visit * Auth/Cert (Routine) Specialty [...] 5.9) Rima Dickinson MD [facility] [place] [address] [facility] Referral ID Status Reason Start Date Expiration Date Visits Re quested Visits Authorized [id number] 1 1 Encounter Details Date Type Department Care Team (Late st Contact Info) Description 02/03/2024 10:00 AM EDT - 02/03/2024 11:00 AM EDT Surgery [place] [address] Saira Lua MD CARDIAC CATHETERIZATION Social History [...] Follow-up Visits Follow up with your manager balance in 2-4 weeks Access Site 'Black and Blue' and tenderness is expected during the first week Call if you noted a mass (lump) greater than the size of a ellis Call Office with any Questions and if you have any of the following Clarence Lane M.D Interventional Agile Test Lead Online Editor #: [phone] * Attachments The following attachments cannot be sent through Care Everywhere. * CAD (Coronary Artery Disease): General Info (Trinidadian) * Coronary Angiogram: Post-op (Trinidadian) documented in this encounter Medications at Time [...] MD - 02/03/2024 11:48 AM EDT [facility] Interventional Cardiology Adult Pre-Procedure H&P Update: Cardiac Catheterization Karlos Anthony [id number] 1960 Chief Complaint: Aortic stenosis HPI: Mr. [...] is inthe chart Clarence Lane MD Interventional Agile Test Lead 02/03/24 11:48 AM documented in this encounter Miscellaneous Notes * Brief Op Note - Clarence Lane MD - 02/03/2024 12:51 PM EDT Preliminary Cardiac Catheterization Procedure Note: Patient Name: Karlos Anthony : [id number] MR#: [id number] Case Date: 02/03/2024 Online Editor: Surgeon(s) and Role: * Saira Lua MD [...] Modality Other Narrative 02/12/2024 3:47 PM EDT ?[facility] ? Cardiac Catheterization/Intervention Report ? Patient Name: Patenaude, Kralos ? Procedure Date: 02/03/2024 ? A #: [id number] ? Primary Physician: Mogadam, Emad ? Case #: [id number] ? File Name: [id number] ? Catheterization Order Number: [id number] ? [facility] ? Final Report [place], [place] ? Patient Name: ? Karlos Patenaude ? ID#: ?[id number] ? : ?1960 ? Procedure Date: ? [...] Procedure Note Saira Lua MD - 02/12/2024 [facility] Cardiac Catheterization/Intervention Report Patient Name: Karlos Anthony Procedure Date: 02/03/2024 A #: [id number] Primary Physician: Saira Lua Case #: [id number] File Name: [id number] Catheterization Order Number: [id number] [facility] FinalReport [place], [place] Patient Name: Karlos Anthony ID#:[id number] :1960 Procedure Date: February 03, 2024 Case [...] 372 ms MUSE SYSTEM Calculated P [place] 59 degrees MUSE SYSTEM Calculated R [place] 34 degrees MUSE SYSTEM Calculated T [place] 63 degrees MUSE SYSTEM INTERPRETATION Sinus bradycardia [...] MD) documented in this encounter Care Teams Otter Trawler Boatswain Relationship Specialty Start Date End Date Vanessa Christian APRN PCP - General Family Medicine 10/21/23 05/26/24 documented as of this encounter
--- OUTSIDE RECORDS SUMMARY | 2024-10-08 10:19 | XMS_ITS | Encounter Summary ---
Author Organization [facility] Address [facility] [place] [address] Care Team Providers Care Tank Truck Engine Mechanic Name Role Phone Vanessa Christian MAURI Primary Care Provider [phone] Encounter Details Date Type Department Care Team (Latest Contact Info) Description 01/09/2024 3:02 PM EDT - 01/09/2024 11:59 PM EDT Hospital Encounter XRay at [address] [place] [address] Zak Farmer MD [facility] CARDIOTHORACIC [place] [address] Nonrheumatic aortic valve stenosis Discharge Disposition: Home [...] ? Electronically signed by: Toby Dave MD, [facility] ([phone]), at 01/09/2024 3:11 PM Narrative 01/09/2024 3:11 [...] development associate that requested your imaging first. Electronically signed by: Toby Dave MD, [facility]([phone]), at 01/09/2024 3:11 PM Zak Farmer MD IMG DX ORDERABLES documented in this encounter Visit Diagnoses Diagnosis Nonrheumatic aortic valve stenosis Aortic valve disorders documented in this encounter Care Teams Tank Truck Engine Mechanic Relationship Specialty Start Date End Date Vanessa Christian APRN PCP - General Family Medicine 10/21/23 05/26/24 documented as of this encounter
--- OUTSIDE RECORDS SUMMARY | 2024-10-08 10:19 | XMS_ITS | Encounter Summary ---
Author Organization [facility] Address [facility] [place] [address] Care Team Providers Care Padder Name Role Phone Vanessa Christian MAURI Primary Care Provider [phone] Reason for Visit * Consultation (Routine) - Closed Specialty Diagnoses / Procedures Referred By Contac t Referred To Contact Cardiac Surgery Diagnoses Nonrheumatic aortic valve stenosis significant - TAVR ( defers to Card Surg d/t age) Neftali Ernandez MD [facility] [place] [address] Zak Farmer MD [facility] CARDIOTHORACIC [place] [address] Referral ID Status Reason Start Date Expiration Date V isits Requested Visits Authorized [id number] Closed Consult, Test & Treat 10/21/2023 10/20/2024 1 1 Encounter Details Date Type Department Care Team (Late st Contact Info) Description 01/09/2024 1:40 PM EDT Office [place] [address] Zak Farmer MD [facility] CARDIOTHORACIC [place] [address] Nonrheumatic aortic valve stenosis Social [...] office. Best personal regards, Zak Farmer MD [phone] In aggregate 55 minutes were spent evaluating [...] signed by: Toby Dave MD, [facility] ([phone]), at 01/09/2024 3:11 PM Narrative 01/09/2024 3:11 [...] signed by: Toby Dave MD, [facility]([phone]), at 01/09/2024 3:11 PM Zak Farmer MD [...] CHEMISTRY ORDERABLE S [facility] [place] [address] * Hepatic Function Panel (01/09/2024 2:58 PM [...] MD CHEMISTRY ORDERABLE S Performing Organization Address [facility] Co de Phone Number [facility] [place] [address] * Prothrombin Time (01/09/2024 2:58 PM EDT) [...] MD HEMATOLOGY ORDERABL ES Performing Organization Address [facility] Co de Phone Number [facility] [place] [address] * Type and Screen Future Surgery, [facility] ONLY) (01/09/2024 2:58 PM EDT) ABORH Type O NEGATIVE [facility] Patient BB History Not Found [facility] Expires at 8420 on: 02-20-2024 [facility] Ab Screen Interp Negative [facility] Blood 01/09/2024 2:58 PM EDT 01/09/2024 2:58 PM EDT Narrative Resulting Agency Comment Spec In Lab Zak Farmer MD BLOOD BANK LAB ORDE ASH Performing Organization Address City/State/[facility] Co de Phone Number [facility] [place] [address] documented in this encounter Visit Diagnoses Diagnosis Nonrheumatic aortic valve stenosis Aortic valve disorders Nonrheumatic aortic valve stenosis Aortic valve disorders documented in this encounter Care Teams Padder Relationship Specialty Start Date End Date Vanessa Christian, LARD BLEACHER PCP - General Family Medicine 10/21/23 05/26/24 documented as of this encounter
--- OUTSIDE RECORDS SUMMARY | 2024-10-08 10:19 | XMS_ITS | Encounter Summary ---
Author Organization [facility] [place] [address] Care Team Providers Care School Bus Driver/Teacher Assistant Name Role Phone Vanessa Christian APRN Primary Care Provider [phone] Encounter Details Date Type Department Care Team [...] on filedocumented in this encounter Care Teams School Bus Driver/Teacher Assistant Relationship Specialty Start Date End Date Vanessa Christian APRN PCP - General Family Medicine 10/21/23 05/26/24 documented as of this encounter
--- OUTSIDE RECORDS SUMMARY | 2024-10-08 10:19 | XMS_ITS | Encounter Summary ---
[facility] Organization [facility] [place] [address] Care Team Providers Care Paste Up Copy Camera Operator Name Role Phone Vanessa Christian Lane DOTSON Primary Care Provider [phone] Encounter Details Date Type Department Care Team (Late st Contact Info) Description 01/09/2024 2:30 PM EDT Clinical Support Same Day at [facility] [place] [phone] Social History Tobacco Use Types Packs/Day Years Used Date Smoking Tobacco: Former Cigarettes Smokeless Tobacco: Never Comments:Quit 15 + years ago Alcohol Use Standard Drinks/Week Comments Yes 0 (1 standard drink = 0.6 oz pur e alcohol) rare [facility] Inpatient Questions Answer Date Recorded Prevent [...] you tube link for a video about [facility] cardiac surgery. Instructed [...] on filedocumented in this encounter Care Teams Paste Up Copy Camera Operator Relationship Specialty Start Date End Date Vanessa Christian APRN PCP - General Family Medicine 10/21/23 05/26/24 documented as of this encounter
--- OUTSIDE RECORDS SUMMARY | 2024-10-08 10:19 | XMS_ITS | Encounter Summary ---
Author Organization [facility] [place] [address] Care Team Providers Care Day Treatment Clinician/Art Therapist Name Role Phone Vanessa Christian APRN Primary Care Provider [phone] Encounter Details Date Type Department Care Team [...]
--- OUTSIDE RECORDS SUMMARY | 2024-10-08 10:19 | XMS_ITS | Encounter Summary ---
Author Organization [facility] Address [facility] [place] [address] Care Team Providers Care Senior Planning Analyst Name Role Phone Vanessa Christian MAURI Primary Care Provider [phone] Encounter Details Date Type Department Care Team (Late st Contact Info) Description 02/14/2024 Orders [place] [phone] Zak Farmer MD [facility] DR [place] [address] Coronary artery disease, unspecified vessel or lesion type, unspecified whether angina present, unspecified whether [place] or transplanted heart (Primary Dx) Social History [...] (Bezet) 401 ms MUSE SYSTEM Calculated P [place] -12 degrees MUSE SYSTEM Calculated R [place] 24 degrees MUSE SYSTEM Calculated T [place] 74 degrees MUSE SYSTEM INTERPRETATION Sinus bradycardia T wave abnormality, consider anterior ischemia Abnormal ECG When compared with ECG of 17-FEB-2024 13:24, DC interval has decreased T wave inversion now evident in Anterior leads Confirmed by Paul Guzman ([id number]) on 03/15/2024 8:36:23 AM MUSE SYSTEM 03/12/2024 2:35 PM EDT 03/15/2024 8:36 AM EDT Zak Farmer MD ECG ORDERABLES MUSE SYSTEM * XR Chest PA & Lateral (Generic) (03/12/2024 1:42 PM EDT) Pathologist [facility] WORKSTATION ID [id number] [facility] Anatomical Region Laterality Modality Chest N/A [...] have questions please contact the health care transition manager that requested your imaging first. ? Narrative 03/13/2024 8:28 AM EDT EXAMINATION: XR CHEST PA AND LATERAL (GENERIC) CLINICAL HISTORY: s/p cabg eval effusions I25.10, Atherosclerotic heart disease of [place] coronary artery without angina pectoris TECHNIQUE: PA [...] eval effusions I25.10, Atherosclerotic heart disease of [place] coronary artery withoutangina pectoris TECHNIQUE: PA and [...] who have questions please contactthe health care transition manager that requested your imaging first. Zak Farmer MD IMG DX ORDERABLES documented in this encounter Visit Diagnoses Diagnosis Coronary artery disease, unspecified vessel or lesion type, unspecified whether angina present, unspecified whether [place] or transplanted heart- Primary Coronary artery disease, unspecified vessel or lesion type, unspecified whether angina present, unspecified whether [place] or transplanted heart documented in this encounter Care Teams Senior Planning Analyst Relationship Specialty Start Date End Date Vanessa Christian APRN PCP - General Family Medicine 10/21/23 05/26/24 documented as of this encounter
--- OUTSIDE RECORDS SUMMARY | 2024-10-08 10:19 | XMS_ITS | Encounter Summary ---
Author Organization [facility] [place] [address] Care Team Providers Care Certified Optician Name Role Phone Vanessa Christian MAURI Primary Care Provider [phone] Reason for Visit * Auth/Cert (Routine) Specialty [...] Dickinson MD [facility] [address] [facility] Referral ID Status Reason Start Date Expiration Date Visits Re quested Visits Authorized [id number] 1 1 Encounter Details Date Type Department Care Team (Latest Contact Info) Description 02/03/2024 8:06 AM EDT - 02/03/2024 2:54 PM EDT Hospital Encounter [place] [address] Rima Dickinson MD [facility] [address] Screening for cardiovascular condition; Aortic valve stenosis, [...] lbs Follow-up Visits Follow up with your laboratory scientist in 2-4 weeks Access Site 'Black and Blue' and tenderness is expected during the first week Call if you noted a mass (lump) greater than the size of a ellis Call Office with any Questions and if you have any of the following Clarence Lane M.D Interventional Steel Post Installer Car Shunter #: [phone] * Attachments The following attachments cannot be [...] Pre-Procedure H&P Update: Cardiac Catheterization Karlos Anthony [id number] 1960 Chief Complaint: Aortic stenosis HPI: Mr. [...] is inthe chart Clarence Lane MD Interventional Steel Post Installer 02/03/24 11:48 AM documented in this encounter Miscellaneous Notes * Brief Op Note - Clarence Lane MD - 02/03/2024 12:51 PM EDT Preliminary Cardiac Catheterization Procedure Note: Patient Name: Karlos Anthony : [id number] MR#: [id number] Case Date: 02/03/2024 Car Shunter: Surgeon(s) and Role: * Saira Lua MD [...] Other Narrative 02/12/2024 3:47 PM EDT ?[facility] ? Cardiac Catheterization/Intervention Report ? Patient Name: Patenaude, Karlos ? Procedure Date: 02/03/2024 ? A #: [id number] ? Primary Physician: Mogadam, Emad ? Case #: [id number] ? File Name: [id number] ? Catheterization Order Number: [id number] ? [facility] ? Final Report [place], [place] ? Patient Name: ? Karlos Anthony ? ID#: ?[id number] ? : ?1960 ? Procedure Date: ? [...] Lua M.D. ? Electronically Signed by: Saira Lau M.D. ? Report Finalized: 02/12/2024 ??15:43 ? Procedure Note Saira Lua MD - 02/12/2024 [facility] Cardiac Catheterization/Intervention Report Patient Name: Karlos Anthony Procedure Date: 02/03/2024 A #: [id number] Primary Physician: Saira Lua Case #: [id number] File Name: [id number] Catheterization Order Number: [id number] [facility] FinalReport [place], [place] Patient Name: Karlos Anthony ID#:[id number] :1960 Procedure Date: February 03, 2024 Case [...] as ASA Class III. The [facility] clinical frailty scale is 3: Managing [...] Lua M.D. performed the coronary angiography. Saira uLa M.D. Electronically Signed by: Saira Lua M.D. [...] (Bezet) 372 ms MUSE SYSTEM Calculated P [place] 59 degrees MUSE SYSTEM Calculated R [place] 34 degrees MUSE SYSTEM Calculated T [place] 63 degrees MUSE SYSTEM INTERPRETATION Sinus bradycardia [...] MD) documented in this encounter Care Teams Certified Optician Relationship Specialty Start Date End Date Vanessa Christian, MAURI PCP - General Family Medicine 10/21/23 05/26/24 documented as of this encounter
--- OUTSIDE RECORDS SUMMARY | 2024-10-08 10:19 | XMS_ITS | Encounter Summary ---
Author Organization [facility] [place] [address] Care Team Providers Care Shoe Patternmaker Name Role Phone Vanessa Christian APRN Primary Care Provider Encounter Details Date Type Department Care Team (Late st Contact Info) Description 12/26/2023 Notes Only Cardiology at [address] [place] [address] Neftali Ernandez MD [facility] [place] [address] Social History Tobacco Use Types Packs/Day Years [...] EDT Echocardiogram images reviewed from [facility]. Indeed, the aortic valve appears severely stenotic. Cannotrule out bicuspid valve documented in this encounter Plan of Treatment Not on file documented as of this encounter Visit Diagnoses Not on filedocumented in this encounter Care Teams Shoe Patternmaker Relationship Specialty Start Date End Date Vanessa Christian APRN PCP - General Family Medicine 10/21/23 05/26/24 documented as of this encounter
--- OUTSIDE RECORDS SUMMARY | 2024-10-08 10:19 | XMS_ITS | Encounter Summary ---
Author Organization [facility] [place] [address] Care Team Providers Care Cutting Supervisor Name Role Phone Vanessa Christian APRN Primary Care Provider [phone] Encounter Details Date Type Department Care Team (Late st Contact Info) Description 01/10/2024 Orders Only Hospice [place] [address] Lawson Napoles PA [facility] [place] [address] Screening for cardiovascular condition; Aortic valve stenosis, [...] unspecified documented in this encounter Care Teams Cutting Supervisor Relationship Specialty Start Date End Date Vanessa Christian APRN PCP - General Family Medicine 10/21/23 05/26/24 documented as of this encounter
--- OUTSIDE RECORDS SUMMARY | 2024-10-08 10:19 | XMS_ITS | Encounter Summary ---
Author Organization [facility] Address [facility] [place] [address] Care Team Providers Care Graining Press Operator Name Role Phone Vanessa Christian BUTCHER Primary Care Provider [phone] Reason for Referral * Diagnostic Test (Routine) - Closed Specialty Diagnoses / Procedures Referred By Contac t Referred To Contact Radiology Diagnoses Nonrheumatic aortic valve stenosis Procedures CT Chest wo Contrast (Generic) Louisa Reid PA [facility] CARDIOTHORACIC [place] [address] [facility] [place] [address] Referral ID Status Reason Start Date Expiration Date V isits Requested Visits Authorized [id number] Closed Specialty Service Requested 01/10/2024 07/11/2025 1 1 Encounter Details Date Type Department Care Team (Late st Contact Info) Description 01/09/2024 Orders [place] [address] Zak Farmer MD [facility] CARDIOTHORACIC [place] [address] Nonrheumatic aortic valve stenosis Social History Tobacco [...] wo Contrast (Generic) (02/03/2024 7:44 AM EDT) [employer] WORKSTATION ID [id number] RAD Anatomical Region Laterality Modality Chest Computed [...] have questions please contact the health youth career specialist that requested your imaging first. ? Electronically signed by: Rogerio Wright MD, [facility] ([phone]), at 02/03/2024 10:00 AM Narrative 02/03/2024 10:00 [...] nodule along the minor fissure (series 302 [id number]) and a 8 mm right lower lobe [...] who have questions please contactthe health youth career specialist that requested your imaging first. Electronically signed by: Rogerio Wright MD, [facility]([phone]), at 02/03/2024 10:00 AM Zak Farmer MD IMG CT ORDERABLES documented in this encounter Visit Diagnoses Diagnosis Nonrheumatic aortic valve stenosis Aortic valve disorders Nonrheumatic aortic valve stenosis Aortic valve disorders documented in this encounter Care Teams Graining Press Operator Relationship Specialty Start Date End Date Vanessa Christian APRN PCP - General Family Medicine 10/21/23 05/26/24 documented as of this encounter
--- OUTSIDE RECORDS SUMMARY | 2024-10-08 10:19 | XMS_ITS | Encounter Summary ---
Author Organization [facility] [place] [address] Care Team Providers Care Mural Artist Name Role Phone Victor M Lafleur MD Primary Care Provider Encounter Details Date Type Department Care Team (Late st Contact Info) Description 09/26/2023 Abstract Cardiology at [address] [address] Karen Billy, RN Nonrheumatic aortic [...] face documented in this encounter Care Teams Mural Artist Relationship Specialty Start Date End Date Victor M Lafleur MD PCP - General 10/02/13 10/20/23 documented as of this encounter
[2024-10-08 10:22] VITALS: BP 116/64; PULSE 80
[2024-10-27 10:31] VITALS: BP 116/70; PULSE 80
--- OUTSIDE RECORDS SUMMARY | 2024-10-27 10:34 | XMS_ITS | Encounter Summary ---
Author Organization [facility] Address [facility] [place] [address] Care Team Providers Care Clearance Coordinator Name Role Phone Vanessa Christian Lane DOTSON Primary Care Provider Reason for Visit * Reason Comments Coronary Artery Disease Aortic Stenosis Encounter Details Date Type Department Care Team (Latest Contact Info) Description 05/27/2024 11:00 AM EDT Office Visit Cardiology at [address] [phone] Neftali Ernandez MD [facility] [place] [address] ASCVD (arteriosclerotic cardiovascular disease); Nonrheumatic aortic valve stenosis Social History Tobacco Use Types Packs/Day Years Used Date Smoking Tobacco: Former Cigarettes Smokeless Tobacco: Never Comments:Quit 15 + years ago Alcohol Use Standard Drinks/Week Comments Yes 0 (1 standard drink = 0.6 oz pur e alcohol) rare [facility] Utilities Answer Date Recorded In the past 12 months has e [employer], gas, oil, or water [employer] threatened to shut off services in your [...] disorders documented in this encounter Care Teams Clearance Coordinator Relationship Specialty Start Date End Date Vanessa Christian, MAURI [address] [place] [address] PCP - General Family Medicine 05/27/24 documented as of this encounter
--- OUTSIDE RECORDS SUMMARY | 2024-10-27 10:34 | XMS_ITS | Encounter Summary ---
Author Organization [facility] Address [address] [place] [address] Care Team Providers Care Mining Analyst Name Role Phone Filidayna Vanessa Dayna MONCADA Primary Care Provider [phone] Encounter Details Date Type Department Care Team (Late st Contact Info) Description 10/24/2023 Lab Requisition [facility] Pathology & Laboratory Medicine - [address] [address] Oscar Nichole MD [address] [place] [address] [phone] Factitial dermatitis Social History Tobacco Use Types [...] if applicable. 10/28/2023 11:[address] [facility] Final Diagnosis A. SKIN OF SABIANISM, LEFT, SHAVE BIOPSY: - Seborrheic keratosis, pigmented. 10/28/2023 11:[address] [facility] Attestation By the signature below, the attending physician certifies that they have 1) personally conducted a gross and/or microscopic examination of the described specimen(s), and/or personally interpreted the results of laboratory testing of the described specimen(s), and 2) personally rendered or confirmed the above diagnosis. 10/28/2023 11:24 [facility] at [address]4 Microscopic Description The stratum corneum is thickened by compact and basketweave orthokeratosis with formation of horn pseudocysts. The epidermis is acanthotic with formation of broad and anastomosing trabeculae. The trabeculae are composed of basaloid keratinocytes with round uniform nuclei. The keratinocytes have a variable amount of melanin pigment. 10/28/2023 11:24 [facility] Clinical History Pigmented 2 cm patch; clinical diagnosis code: L98.1 10/28/2023 11:24 [facility] Gross Description A. Received in formalin labelled with proper patient identification (initials P, A) and left mandaeism is a shave biopsy of an irregular [...] A3. Nora Anderson 10/25/2023 8:47 10/28/2023 11:24 [facility] Performing Lab [facility] 10/28/2023 11:24 [facility] Scanned Images 10/28/2023 11:24 [facility] Tissue SPECIMEN FROM SKIN / Unknown 10/24/2023 14:30 EST 10/24/2023 22:04 EST us Oscar Nichole MD PATHOLOGY ORDERABLES Final Resul t [facility] [address] [place] [address] documented in this encounter Visit Diagnoses Diagnosis Factitial dermatitis Dermatitis factitia (artefacta) documented in this encounter Care Teams Mining Analyst Relationship Specialty Start Date End Date Vanessa Christian NP [address] [place] [address] PCP - General Family Medicine - Primary Care 10/07/23 documented as of this encounter
--- OUTSIDE RECORDS SUMMARY | 2024-10-27 10:34 | XMS_ITS | Encounter Summary ---
Author Organization [facility] Address [facility] [place] [address] Care Team Providers Care Manager Tax Name Role Phone Vanessa Christian MAURI Primary Care Provider [phone] Encounter Details Date Type Department Care Team (Latest Contact Info) Description 05/27/2024 Travel Social History Tobacco Use Types Packs/Day Years Used Date Smoking Tobacco: Former Cigarettes Smokeless Tobacco: Never Comments:Quit 15 + years ago Alcohol Use Standard Drinks/Week Comments Yes 0 (1 standard drink = 0.6 oz pur e alcohol) rare [facility] Utilities Answer Date Recorded In the [...] filedocumented in this encounter Care Teams Manager Tax Relationship Specialty Start Date End Date Vanessa Christian APRN [address] [place] [address] PCP - General Family Medicine 05/27/24 documented as of this encounter
--- OUTSIDE RECORDS SUMMARY | 2024-10-27 10:34 | XMS_ITS | Referral Summary ---
Author Organization [facility] Address [address] [place] [address] Care Team Providers Care Cfo Name Role Phone Vanessa Christian Lane MONCADA Primary Care Provider [phone] Social History Tobacco Use Types Packs/Day Years Used Date Smoking Tobacco: Never Assessed Sex and Gender Information Value Date Recorded Sex Assigned at Not on file Legal Sex Male 22:02 EST Gender Identity Not on file Sexual Orientation Not on file Plan of Treatment Not on file Insurance R Care Teams Cfo Relationship Specialty Start Date End Date Vanessa Christian, ANTWAN [address] [place] [phone] PCP - General Family Medicine - Primary Care 10/07/23
--- OUTSIDE RECORDS SUMMARY | 2024-10-27 10:34 | XMS_ITS | Clinical Summary ---
Author Organization [facility] Address [address] [place] [address] Care Team Providers Care Dental Service Technician Name Role Phone Filidayna Vanessa Sherman NP Primary Care Provider [phone] Social History Tobacco Use Types Packs/Day Years [...] 75+ series) 2034 Insurance [employer] Care Teams Dental Service Technician Relationship Specialty Start Date End Date Vanessa Christian, ANTWAN [address] [place] [phone] PCP - General Family Medicine - Primary Care 10/07/23
--- OUTSIDE RECORDS SUMMARY | 2024-10-27 10:34 | XMS_ITS | Encounter Summary ---
Author Organization [facility] Address [facility] [place] [address] Care Team Providers Care Senior Pensions Administrator Name Role Phone Vanessa Christian MAURI Primary Care Provider [phone] Encounter Details Date Type Department Care Team (Latest Contact Info) Description 05/20/2024 Travel Social History Tobacco Use Types Packs/Day Years Used Date Smoking Tobacco: Former Cigarettes Smokeless Tobacco: Never Comments:Quit 15 + years ago Alcohol Use Standard Drinks/Week Comments Yes 0 (1 standard drink = 0.6 oz pur e alcohol) rare [facility] Utilities Answer Date Recorded In the past [...] filedocumented in this encounter Care Teams Senior Pensions Administrator Relationship Specialty Start Date End Date Vanessa Christian APRN PCP - General Family Medicine 10/21/23 05/26/24 documented as of this encounter
--- OUTSIDE RECORDS SUMMARY | 2024-10-27 10:34 | XMS_ITS | Encounter Summary ---
Author Organization [facility] Address [facility] [place] [address] Care Team Providers Care Demurrage Man Name Role Phone Vanessa Christian MAURI Primary Care Provider [phone] Encounter Details Date Type Department Care Team [...] on filedocumented in this encounter Care Teams Demurrage Man Relationship Specialty Start Date End Date Vanessa Christian APRN PCP - General Family Medicine 10/21/23 05/26/24 documented as of this encounter
--- OUTSIDE RECORDS SUMMARY | 2024-10-27 10:34 | XMS_ITS | Clinical Summary ---
Author Organization [facility] Address [facility] [place] [address] Care Team Providers Care Styrene Dehydration Reactor Operator Name Role Phone Vanessa Christian Lane DOTSON Primary Care Provider [phone] Allergies No known active allergies Medications Medication [...] Vaccines (1 - Tdap) 07/05 Pneumoccocal Vaccine: 50+ (1 of 1 - PCV) 2009 Zoster vaccine (1 of 2) 2009 Advance Directive 2014 Covid-19 Vaccine (1 - season) 2024 Influenza (Flu) vaccine (1 o f 1 - Influenza standard series) 06/07/2024 Medical Devices Implanted Type Area Engine Test Cell Technician Device Identifier Shelf Expiration Date Model / Serial / Lot Cable,Cut,Edg ,Blnt,Ss,3tpr ([id number]) - [id number] Implanted:Qty : 1 on 02/17/2024 by Zak Farmer MD at [facility] IMPLANTS Midline: Chest [employer] - [id number] 09/02/2028 [id number] / / [id number] Valve Coronary Aortic 23mm Tissue Trnscath Biopros Inspiris ([id number]) (Autoreq) - [id number] Implanted:Qty : 1 on 02/17/2024 by Zak Farmer MD at [facility] IMPLANTS Heart [employer] - TSAI LI 09/15/2027 [id number] 23MM / [id number] / Advance Directives * Attempt Cardiopulmonary Resuscitation [...] Status decision made by: Patient Care Teams Styrene Dehydration Reactor Operator Relationship Specialty Start Date End Date Vanessa Christian, PLAYER MANAGER [address] [place] [address] PCP - General Family Medicine 05/27/24
--- OUTSIDE RECORDS SUMMARY | 2024-10-27 10:35 | XMS_ITS | Encounter Summary ---
Author Organization [facility] Address [facility] [place] [address] Care Team Providers Care Police Academy Program Coordinator Name Role Phone Vanessa Christian BUSINESS CONTINUITY PLANNER Primary Care Provider [phone] Encounter Details Date Type Department Care Team (Late st Contact Info) Description 03/12/2024 2:40 PM EDT Office [place] [phone] Zak Farmer MD [facility] [place] [address] Coronary artery disease, unspecified vessel or lesion type, unspecified whether angina present, unspecified whether [place] or transplanted heart Social History Tobacco Use Types Packs/Day Years Used Date Smoking Tobacco: Former Cigarettes Smokeless Tobacco: Never Comments:Quit 15 + years ago Alcohol Use Standard Drinks/Week Comments Yes 0 (1 standard drink = 0.6 oz pur e alcohol) rare [facility] Utilities Answer Date Recorded In the past 12 months has e [employer], gas, oil, or water [employer] threatened to shut off services in your [...] 2:40 PM EDT To: MD Vanessa Coles, BUSINESS CONTINUITY PLANNER Re; Karlos Santa ( 1960) We had [...] office. Best personal regards, Zak Farmer MD [phone] documented in this encounter Plan of Treatment Not on file documented as of this encounter Procedures Procedure Name Priority Date/Time Associated Diagnosis Comments EKG 12-LEAD Routine 03/12/2024 2:35 PM EDT Coronary artery disease, unspecified vessel or lesion type, unspecified whether angina present, unspecified whether [place] or transplanted heart documented in this encounter Results * EKG 12 Lead (03/12/2024 2:35 PM EDT) Ventricular rate 59 BPM MUSE SYSTEM Atrial Rate 59 BPM MUSE SYSTEM P-R Interval 190 ms MUSE SYSTEM QRS Duration 92 ms MUSE SYSTEM Q-T Interval 406 ms MUSE SYSTEM QTC Calculated (Bezet) 401 ms MUSE SYSTEM Calculated P Sterling -12 degrees MUSE SYSTEM Calculated R Sterling 24 degrees MUSE SYSTEM Calculated T Sterling 74 degrees MUSE SYSTEM INTERPRETATION Sinus bradycardia T wave abnormality, consider anterior ischemia Abnormal ECG When compared with ECG of 17-FEB-2024 13:24, [place] interval has decreased T wave inversion now evident in Anterior leads Confirmed by Paul Guzman ([id number]) on 03/15/2024 8:36:23 AM MUSE SYSTEM 03/12/2024 2:35 PM EDT 03/15/2024 8:36 AM EDT Zak Farmer MD ECG ORDERABLES TCM Bertha SYSTEM documented in this encounter Visit Diagnoses Diagnosis Coronary artery disease, unspecified vessel or lesion type, unspecified whether angina present, unspecified whether [place] or transplanted heart documented in this encounter Care Teams Police [employer] Program Coordinator Relationship Specialty Start Date End Date Vanessa Christian, MAURI PCP - General Family Medicine 10/21/23 05/26/24 documented as of this encounter
--- OUTSIDE RECORDS SUMMARY | 2024-10-27 10:35 | XMS_ITS | Encounter Summary ---
Author Organization [facility] Address [facility] [place] [address] Care Team Providers Care Schedule Analyst Name Role Phone Gino Vanessa Lane DOTSON Primary Care Provider [phone] Encounter Details Date Type Department Care Team (Late st Contact Info) Description 02/24/2024 Orders Only Cardiac Surgery [facility] [place] [phone] Trudi Lester APRN [facility] [place] [address] Social History Tobacco Use Types Packs/Day Years Used Date Smoking Tobacco: Former Cigarettes Smokeless Tobacco: Never Comments:Quit 15 + years ago Alcohol Use Standard Drinks/Week Comments Yes 0 (1 standard drink = 0.6 oz pur e alcohol) rare [facility] Utilities Answer Date Recorded In the past 12 months has e [employer] gas, oil, or water [employer] threatened to shut off services in your [...] on filedocumented in this encounter Care Teams Schedule Analyst Relationship Specialty Start Date End Date Vanessa Christian APRN PCP - General Family Medicine 10/21/23 05/26/24 documented as of this encounter
--- OUTSIDE RECORDS SUMMARY | 2024-10-27 10:35 | XMS_ITS | Encounter Summary ---
Author Organization [facility] Address [facility] [place] [address] Care Team Providers Care Retail Business Development Manager Name Role Phone Vanessa Christian MAURI Primary Care Provider [phone] Encounter Details Date Type Department Care Team (Latest Contact Info) Description 03/12/2024 1:30 PM EDT - 03/12/2024 11:59 PM EDT Hospital Encounter XRay at [address] [place] [address] Coronary artery disease, unspecified vessel or lesion type, unspecified whether angina present, unspecified whether [place] or transplanted heart Discharge Disposition: Home Social History Tobacco Use Types Packs/Day Years Used Date Smoking Tobacco: Former Cigarettes Smokeless Tobacco: Never Comments:Quit 15 + years ago Alcohol Use Standard Drinks/Week Comments Yes 0 (1 standard drink = 0.6 oz pur e alcohol) rare [facility] Utilities Answer Date Recorded In the past 12 months has e [employer], gas, oil, or water [employer] threatened to shut off services in your [...] type, unspecified whether angina present, unspecified whether [place] or transplanted heart documented in this encounter Results * XR Chest PA & Lateral (Generic) (03/12/2024 1:42 PM EDT) WORKSTATION ID [id number] RAD Anatomical Region Laterality Modality Chest N/A [...] who have questions please contact the health multi care technician that requested your imaging first. ? Electronically signed by: Augie Sanchez MD, [facility] ([phone]), at 03/13/2024 8:28 AM Narrative 03/13/2024 8:28 AM EDT EXAMINATION: XR CHEST PA AND LATERAL (GENERIC) CLINICAL HISTORY: s/p cabg eval effusions I25.10, Atherosclerotic heart disease of [place] coronary artery without angina pectoris TECHNIQUE: PA [...] eval effusions I25.10, Atherosclerotic heart disease of [place] coronary artery withoutangina pectoris TECHNIQUE: PA and [...] patients who have questions please contactthe health multi care technician that requested your imaging first. Electronically signed by: Augie Sanchez MD, [facility]([phone]), at 03/13/2024 8:28 AM Zak Farmer MD IMG DX ORDERABLES documented in this encounter Visit Diagnoses Diagnosis Coronary artery disease, unspecified vessel or lesion type, unspecified whether angina present, unspecified whether [place] or transplanted heart documented in this encounter Care Teams Retail Business Development Manager Relationship Specialty Start Date End Date Vanessa Christian APRN PCP - General Family Medicine 10/21/23 05/26/24 documented as of this encounter
--- OUTSIDE RECORDS SUMMARY | 2024-10-27 10:35 | XMS_ITS | Encounter Summary ---
[place] [address] Care Team Providers Care Schedule Manager Name Role Phone Aparna Jordan MAURI Primary Care Provider [phone] Reason for Referral * Diagnostic Test (Routine) - New Request Specialty Diagnoses / Procedures Referred By Contac t Referred To Contact Cardiology Diagnoses S/P AVR Procedures Echocardiogram Transthoracic Neftali Menon PA [facility] [place] [address] [facility] [place] [address] Referral ID Status Reason Start Date Expiration Date Visits Requested Visits Authorized [id number] New Request Specialty Service Requested 02/24/2024 02/23/2025 1 1 * Consultation (Routine) - Closed Specialty Diagnoses / Procedures Referred By Contac t Referred To Contact Cardiology Diagnoses S/P AVR Hayder Graham MD [facility] [place] [address] Cardiac Rehab, [facility] [address] [place] [address] [place] [address] Referral ID Status Reason Start Date Expiration Date V isits Requested Visits Authorized [id number] Closed Consult, Test & Treat 02/24/2024 08/22/2024 36 36 * Home Health Care (Routine) - Closed Specialty Diagnoses / Procedures Referred By Sixto mendoza Referred To Contact Diagnoses S/P AVR Hayder Graham MD [facility] [place] [address] Referral ID Status Reason Start Date Expiration Date V isits Requested Visits Authorized [id number] Closed Consult, Test & Treat 02/24/2024 08/22/2024 [...] [facility] [place] [address] [facility] Referral ID Status Reason Start Date Expiration Date Visits Re quested Visits Authorized [id number] 1 1 Encounter Details Date Type Department Care Team (Latest Contact Info) Description 02/17/2024 5:43 AM EDT - 02/24/2024 11:23 AM EDT Hospital Encounter Heart and Vascular Unit Level 4 [place] [address] Hayder Graham MD [facility] [place] [address] S/P AVR (Primary Dx); Aortic valve stenosis, [...] weeks. Patient to follow up with Director Of Housing, Neftali Ernandez MD , in 2 weeks. Patient to follow up with Cardiac Surgeon, Dr. Hayder Graham, with a chest x-ray, EKG, and Echo. 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 Right scientology Past Surgical History: Procedure Laterality Date PRO CABG, ARTERIAL, SINGLE N/A 02/17/2024 @CABG, USING ARTERIAL GRAFT;SINGLE ARTERIAL GRAFT (WRVU 33.75) performed by Hayder Graham MD at [facility] MAIN OR PRO CABG, ARTERY-VEIN, TWO N/A 02/17/2024 @CABG, TWO VENOUS GRAFTS & ARTERIAL GRAFT (WRVU 7.93) performed by Hayder Graham MD at [facility] MAIN OR PRO ENDOSCOPY W/VIDEO-ASST VEIN HARVEST, CABG Left 02/17/2024 ENDOSCOPIC HARVEST VEIN(S) FOR CABG (WRVU 0.31) performed by Hayder Graham MD at [facility] MAIN OR PRO REPLACEMENT PROSTHETIC AORTIC VALVE OPEN W CARDIOPULMONARY BYPASS HOMOGRF/STENT N/A 02/17/2024 @REPLACE AORTIC VALVE, OPEN, W\CPB, W\PROSTHETIC VALVE (WRVU 41.32) performed by Hayder Graham MD at [facility] MAIN OR Prior To Admission Medications [...] insufficiency. He has glaucoma. He used to BumpTop until about 15 years ago. He has [...] Graham and/or the Cardiac Surgery Physician Manager Managed Backup Services Team may be reached at . Antibiotic [...] Please refer to the card with the [place] [employer] Guidelines for more information. You [...] Dr. Hayder Graham. You may use a [place] Track or treadmill but avoid any pulling [...] should resume a low fat, low cholesterol, [place] [employer] Diet. Driving: No driving until [...] being managed by your PCP and/or Director Of Housing. For future medication refills, please refer to your PCP and/or Director Of Housing after your discharge from our service. Thank you REMOVE CHEST TUBE SUTURES ON OR AFTER 03/02/24 Home oxygen therapy: N/A Follow up appointments: You should follow up with your PCP, Aparna Jordan APRN, in 1-2 weeks. Our office will schedule an appointment with your Director Of Housing, Neftali Ernandez MD , in 2 weeks. You have an appointment with your Cardiac Surgeon, Dr. Hayder Graham, 4 weeks with a chest x-ray, EKG, and Echo before your appointment. Cardiac Rehabilitation: Karlos Garcia was seen regarding participation in the outpatient Phase 2Cardiac Rehabilitation at [facility]. The patient agrees to a referral to this program. The referral will be sent at discharge and the patient should be contacted by the Program within 1- 2 weeks from discharge. Future Appointments and Orders Future Orders Complete By Expires Echocardiogram Transthoracic [24085 CPT(R)] 03/26/2024 09/25/2024 Process Instructions: Scheduling Instructions: Questions: Where will study be performed?: [facility] Does the patient have Congenital Heart Disease?: Does patient require sedation?: Sedation rationale: XR Chest PA & Lateral (Generic) [38587 57343 Custom] 03/26/2024 09/25/2024 Process Instructions: Scheduling Instructions: Questions: Portable exam?: Reason for exam and clinical history: s/p avr/cabg Clinical information / jerome questions for radiologist: Stat read required?: Date of injury if applicable: Requested Time: Where will study be performed?: [facility] Radiology Referral to Cardiac Rehab [YDC152 Custom] As directed Process Instructions: If no progress note charted, please enter Clinical details in comments. Scheduling Instructions: Questions: My question or request is: s/p AVR/CABG. Cardiac rehab at [facility]. Referral to Home Health [REF34 Custom] As directed Process Instructions: If no progress note charted, please enter Clinical details in comments. Scheduling Instructions: Comments: Please evaluate Karlos Garcia for admission to Home Health. [address] Phone Number: Date of : 1960 Inpatient DOCUMENTATION FOR VNA SERVICES (INCLUDING THOSE PATIENTS WITH MEDICARE COVERAGE REQUIRING HOME VNA SERVICES AND/OR HOSPICE SERVICES) PATIENT'S LOCATION: Karlos Garcia [address] [employer] [phone] Adult Education Teacher's Name: self/family In discussion with the attending physician, it is certified that this patient is under their care and that they, or a Nurse Practitioner, or Physician Manager Managed Backup Services who is working directly with them, hada [...] for services as follows: HOME HEALTH AGENCY: [facility]. [address] [place] [address] RN orders: Cardiopulmonary assessment, incisional assessment, assess [...] issues please call the Cardiology Office at [phone] FOR MEDICARE ONLY: (please delete this section [...] care: As above. Signed: NEFTALI MENON PA-C [facility] Section of Cardiac Surgery [facility] [address] FAX [phone] Date: 02/24/2024 CC: Aparna Jordan, MAURI Jordan, Aparna Sherman APRN [address] [place] [address] documented in this encounter Discharge Instructions * [...] Graham and/or the Cardiac Surgery Physician Manager Managed Backup Services Team may be reached at . Antibiotic [...] Please refer to the card with the [place] Heart [employer] Guidelines for more information. You [...] Dr. Hayder Graham. You may use a [place] Track or treadmill but avoid any pulling [...] should resume a low fat, low cholesterol, [place] Heart [employer] Diet. Driving: No driving until [...] being managed by your PCP and/or Director Of Housing. For future medication refills, please refer to your PCP and/or Director Of Housing after your discharge from our service. Thank you REMOVE CHEST TUBE SUTURES ON OR AFTER 03/02/24 Home oxygen therapy: N/A Follow up appointments: You should follow up with your PCP, Aparna Jordan APRN, in 1-2 weeks. Our office will schedule an appointment with your Director Of Housing, Neftali Ernandez MD , in 2 weeks. You have an appointment with your Cardiac Surgeon, Dr. Hayder Graham, 4 weeks with a chest x-ray, EKG, and Echo before your appointment. Cardiac Rehabilitation: Karlos Garcia was seen regarding participation in the outpatient Phase 2Cardiac Rehabilitation at [facility]. The patient agrees to a [...] 0600 and on the weekends please page [phone]. * Eric Barahona PA - 02/23/2024 9:27 [...] 0600 and on the weekends please page [phone]. * Tiffanie Owens PTA - 02/22/2024 2:48 [...] d/c for 10 days. 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 * Kelley Hinson, SYSTEMS DEVELOPMENT MANAGER - 02/21/2024 10:15 AM EDT Physical [...] d/c for 10 days. 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 works Precautions/Special Considerations: [...] LRAD and supervision Time IN / OUT: 8086-6827 Total Time: 25 minutes; TEF 2 Kelley Hinson SYSTEMS DEVELOPMENT MANAGER Pager: [phone] Physical Therapy Inpatient Rehabilitation Department * Louisa [...] PTA - 02/20/2024 3:32 PM EDT 02/20/24 3438 Evaluation & Treatment Document Type contact Total Minutes, Physical Therapy 0 Comment, Session Not Performed Checked in w/ pt this PM for ongoing PT services, pt politely declined, stating he had been dealing w/ nausea all day, made plan to see him tomorrow morning, will f/u at that time Kelley Hinson PTA Pager: [phone] Physical Therapy Inpatient Rehab Department * Louisa [...] 0600 and on the weekends please page [phone]. * Maris Benavides, PT - 02/19/2024 11:22 [...] d/c for 10 days. 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 Precautions/Special Considerations: [...] Sternal incision CDI. Musculoskeletal: ROM: WFL Strength: Danielel HOBBS's 4/5 Bed Mobility: Supine ->Sit: min [...] outlined inthis evaluation. MARIS BENAVIDES, PT Pager: [phone] Physical Therapy Inpatient Rehabilitation Department Time IN / OUT: 8529-9775 Total Time: 38 (eval) minutes; * Antonio [...] 0600 and on the weekends please page [phone]. * Minnie Begum PA - 02/18/2024 8:25 [...] 0600 and on the weekends please page [phone]. * Kim Ha RCP - 02/17/2024 2:25 [...] plan since last visit. Hayder Graham MD [phone] Source Note - Hayder Graham MD - [...] insufficiency. He has glaucoma. He used to BumpTop until about 15 years ago. He has [...] given written informed consent. Hayder Graham MD [phone] * Hayder Graham MD - 02/17/2024 7:00 [...] given written informed consent. Hayder Graham MD [phone] documented in this encounter Miscellaneous Notes * [...] for follow-up Home Health & Hospice, [address] [place] [address] Cardiac Rehab, [facility] [address] [place] [address] Transportation: family or friend will provide Functional status prior to admission: Independent Home Environment: Others in the home: alone. Current Living Arrangements: home/apartment/condo. Accessibility Concerns:a few steps to enter 1 floor home. Current Functional Ability: Assistive Person and Equipment DME used at home: none DME Needed at Discharge: N/A Patient is insured through: Primary Insurance: [employer] Payor: [facility] / Plan: [facility] [...] pain managed with scheduled Tylenol. Worked with [employer]. Ambulated in the roque multiple times during [...] anticipated Patient is insured through: Primary Insurance: [employer] Payor: [facility] / Plan: [facility] [...] Services: Physical Therapy, Registered Nurse Agency Referrals: [facility] [address] [address] Transportation: family or friend will provide Barriers to discharge: Discharge planning Plan going forward: Service Care Management will continue to follow and assist with discharge planning and coordination of care as indicated. Anticipated Date of Discharge: 02/22/2024 Rhett Bell RN RN/CM - Cellphone: [phone] Pager: [phone] Covering Service RN/CM * Plan of Care [...] RN - 02/19/2024 10:44 AM EDT [facility] Karlos Garcia was seen today regarding participation in the outpatient Phase 2 Cardiac Rehabilitation at [facility]. The patient agrees to a [...] Hypertension 08/14/2023 Nevus of face 09/26/2023 Right scientology Hospitalizations Within the Past 30 Days: no previous admission in last 30 days Current Decision-Making Capacity: Self If AD's have not been completed the following surrogate would be surrogate decision maker per [place] surrogate decision making law. (Only good for 180 days) Any patient receiving care in [place] must abide by [place] law. The hierarchy [...] (i) The agent with financial power of buck presser or a conservator appointed in accordance with [...] In the past 12 months has the [employer], gas, oil, or water Currently threatened to shut off services in your [...] as: [address] [facility] [address] Physical address: [address] [facility], [address] Social & Family Supports: All names listed [...] Information: none noted Health/Prescription Coverage: Primary Insurance: [facility] Payor: [facility] / Plan: [facility] PPO / Product Type: *No Product type* / Secondary Insurance: N/A ; Prescription Coverage: Yes Preferred Pharmacy: [id number] AT [facility] & [address] [address] [place] Status: Patient is a : No Primary Care Provider confirmed: Aparna Jordan, VEHICLE FUEL SYSTEMS CONVERTER [phone] Patient/Caregiver Goals of Treatment: dc to home Potential Needs for Transition of Care: home health care Agency Referrals: I have met with the patient to: discuss discharge planning needs. provide the [facility], Office of Care Management letter from the [employer] pertaining to rehab referrals. provide a letter describing our affiliations within the [facility] and educate about their right to choose where referrals are sent. provide a list of Home Health Agencies / Durable Medical Equipment vendors which serve their preferred geographic area. provided patient with [facility] Star Quality Rating handout. They have requested referrals to: [facility] Care Agency [facility]. [address] [place] [address] Note routed to a Health And Safety Coordinator who will communicate referrals to facilities [...] Reina Greene RN CM, BSN, CMGT- Ext [phone] * Plan of Care - Binta Trinidad [...] Operative Note Patient Name: Karlos Garcia DOB: [id number] MR#: [id number] Case Date: 02/17/2024 Surgeon: Surgeon(s) and Role: * Hayder Graham MD - Primary * Neftali Menon PA - Physician Manager Managed Backup Services Preoperative diagnosis: CAD Postoperative diagnosis: CAD, intraoperative [...] MD - 02/17/2024 8:20 AM EDT [facility] Operative Note Patient Name: Karlos Garcia : [id number] MR#: [id number] Case Date: 02/17/2024 Surgeon: Surgeons and Role: * Hayder Graham MD - Primary * Neftali Menon PA - Physician Manager Managed Backup Services Preoperative diagnosis: CAD Postoperative diagnosis: CAD, intraoperative [...] mL Drains: Mediastinal and Left pleural Disposition: [facility] Procedure Description: The patient was brought [...] Aortic Valve Open W Cardiopulmonary Bypass Homogrf/Stent (68053) Yes 02/17/2024 7:28 AM EDT CAD Cabg, Artery-Vein, Two (51643) Yes 02/17/2024 7:28 AM EDT CAD Cabg, Arterial, Single (04903) Yes 02/17/2024 7:28 AM EDT CAD Endoscopy W/Video-Asst Vein [place], Cabg (53072) Yes 02/17/2024 7:28 AM EDT CAD POCT GLUCOSE Routine 02/17/2024 6:38 AM EDT TRANSESOPHAGEAL ECHOCARDIOGRAM IN THE OR Routine 02/17/2024 6:33 AM EDT Aortic valve stenosis, etiology of cardiac valve disease unspecified LAB SCAN 02/17/2024 12:00 AM EDT IMPLANTABLE DEVICES SCAN 02/17/2024 12:00 AM EDT documented in this encounter Results * Potassium (02/24/2024 4:42 AM EDT) Potassium 4.0 3.5 - 5.0 mmol/L [facility] Lab Hayder Graham MD CHEMISTRY ORDERABLE S [facility] [place] [address] * (ABNORMAL) Basic Metabolic Panel (non-fasting) (02/23/2024 4:24 AM EDT) Glucose 117 65 - 199 mg/dL [facility] Comment:Diabetes: >=200 mg/d L plus symptoms Blood Urea Nitrogen 18 10 - 20 mg/dL [facility] Creatinine 0.71(L) 0.80 - 1.50 mg/dL [facility] Sodium 138 135 - 145 mmol/L [facility] Potassium 4.4 3.5 - 5.0 mmol/L [facility] Comment: Please note: ??Patients with WBC >100,000 may have falsely elevated Potassium levels. ??For accurate Potassium quantification in these patients send serum separator tube (gold top) for subsequent determinations. ??Contact the Clinical Chemistry Laboratory if there are any questions. Chloride 101 98 - 107 mmol/L [facility] Carbon Dioxide 26 22 - 31 mmol/L [facility] Anion Gap 11 5 - 15 mmol/L [facility] Calcium 8.8 8.5 - 10.5 mg/dL [facility] Est Glomerular Filtration Rate 102 >=60 mL/min/1. 73 m?? [facility] [...] In Lab Romeo Carpio MD CHEMISTRY ORDERABLES [facility] [place] [address] * Potassium (02/22/2024 4:30 AM EDT) [facility] Signature Potassium 3.5 3.5 - 5.0 mmol/L [facility] [...] Lab Hayder Graham MD CHEMISTRY ORDERABLE S [facility] [place] [address] * (ABNORMAL) Basic Metabolic Panel (non-fasting) (02/21/2024 9:45 AM EDT) Glucose 123 65 - 199 mg/dL [facility] Comment:Diabetes: >=200 mg/d L plus symptoms Blood Urea Nitrogen 22(H) 10 - 20 mg/dL [facility] Creatinine 0.78(L) 0.80 - 1.50 mg/dL [facility] Sodium 140 135 - 145 mmol/L [facility] Potassium 3.9 3.5 - 5.0 mmol/L [facility] Comment: Please note: ??Patients with WBC >100,000 may have falsely elevated Potassium levels. ??For accurate Potassium quantification in these patients send serum separator tube (gold top) for subsequent determinations. ??Contact the Clinical Chemistry Laboratory if there are any questions. Chloride 100 98 - 107 mmol/L [facility] Carbon Dioxide Not Perf 22 - 31 [facility] Comment:Add-on request. Samp le too old to perform test. Anion Gap Unable to Calculate 5 - 15 mmol/L [facility] Calcium 8.6 8.5 - 10.5 mg/dL [facility] Est Glomerular Filtration Rate 100 >=60 mL/min/1 .73 m?? [facility] Comment: [...] Carpio MD CHEMISTRY ORDERABLES Performing Organization Address City/[facility]/ZIP Co de Phone Number [facility] [place] [address] * Lactate, whole blood, send to lab ([facility]) (02/21/2024 9:45 AM EDT) [facility] Lactate WB 2.0 0.5 - 2.2 mmol/L [facility] Blood 02/21/2024 9:45 AM EDT 02/21/2024 9:52 AM EDT Narrative Resulting Agency Comment Spec In Lab Hayder Graham MD CHEMISTRY ORDERABLE S Performing Organization Address [facility] Co de Phone Number [facility] [place] [address] * (ABNORMAL) Hepatic Function Panel (02/21/2024 9:45 AM EDT) [facility] Protein, Total 5.7(L) 6.1 - 8.0 g/dL [facility] Albumin 3.3 3.2 - 5.2 g/dL [facility] Aspartate Aminotransferase 13 0 - 39 unit/L [facility] Alanine Aminotransferase 16 0 - 55 unit/L [facility] Alkaline Phosphatase 63 40 - 130 unit/L [facility] Bilirubin, Total 0.6 0.2 - 1.3 mg/dL [facility] Bilirubin, Direct 0.2 0.0 - 0.3 mg/dL [facility] Blood 02/21/2024 9:45 AM EDT 02/21/2024 9:52 AM EDT Narrative Resulting Agency Comment Spec In Lab Hayder Graham MD CHEMISTRY ORDERABLE S Performing Organization Address City/[facility]/ZIP Co de Phone Number [facility] [place] [address] * Lipase (02/21/2024 9:45 AM EDT) [facility] Lipase 56 0 - 60 unit/L [facility] Blood 02/21/2024 9:45 AM EDT 02/21/2024 9:52 AM EDT Narrative Resulting Agency Comment Spec In Lab Hayder rGaham MD CHEMISTRY ORDERABLE S Performing Organization Address [facility] Co de Phone Number [facility] [place] [address] * Amylase (02/21/2024 9:45 AM EDT) Amylase 69 28 - 100 unit/L [facility] Blood 02/21/2024 9:45 AM EDT 02/21/2024 9:52 AM EDT Narrative Resulting Agency Comment Spec In Lab Hayder Graham MD CHEMISTRY ORDERABLE S Performing Organization Address [facility] de Phone Number [facility] [place] [address] * Potassium (02/21/2024 3:08 AM EDT) [facility] Potassium 3.8 3.5 - 5.0 mmol/L [facility] [...] MD CHEMISTRY ORDERABLE S Performing Organization Address [facility] Co de Phone Number [facility] [place] [address] * XR Chest PA & Lateral (Generic) (02/20/2024 10:19 AM EDT) WORKSTATION ID [id number] DH RAD Anatomical Region Laterality Modality Chest [...] please contact the health patient care technician that requested your imaging first. ? Electronically signed by: Rogerio Cruz MD, [facility] ??([phone]), at 02/20/2024 1:11 PM Narrative 02/20/2024 1:11 PM EDT EXAMINATION: XR CHEST PA AND LATERAL (GENERIC) CLINICAL HISTORY: s/p AVR/CABGx3 TECHNIQUE: PA and lateral views of the chest COMPARISON: 02/17/2024 FINDINGS: Support devices: Interval removal of Cornelia-Kaila catheter, endotracheal tube and mediastinal chest tubes The cardiac silhouette is stable status post median sternotomy, CABG and aortic valve replacement. There are small pleural effusions. No pneumothorax. Procedure Note Rogerio Cruz MD - 02/20/2024 EXAMINATION: XR CHEST PA AND LATERAL (GENERIC) CLINICAL HISTORY: s/p AVR/CABGx3 TECHNIQUE: PA and lateral views of the chest COMPARISON: 02/17/2024 FINDINGS: Support devices: Interval removal of Cornelia-Kaila catheter, endotracheal tubeand mediastinal chest tubes The [...] questions please contactthe health patient care technician that requested your imaging first. Hayder Graham MD IMG DX ORDERABLES * Scan, Peripheral Blood (02/20/2024 4:23 AM EDT) Pathologist [facility] Plat estimate Decreased [facility] RBC Morphology Normal [facility] Blood 02/20/2024 4:23 AM EDT 02/20/2024 4:42 AM EDT Narrative Resulting Agency Comment Spec In Lab Minnie FRENCH HEMATOLOGY CECILIO ALEMAN [facility] [place] [address] * (ABNORMAL) Differential, Automated (02/20/2024 4:23 AM EDT) [facility] Neutrophil % 81.7 % [facility] Neutrophil Absolute 10.37(H) 1.70 - 6.10 x10(3)/mc L [facility] Lymph % 7.4 % [facility] Lymphocytes Abs 0.9 0.9 - 3.2 x10(3)/mc L [facility] Monocyte % 9.7 % [facility] Monocyte Abs 1.2(H) 0.3 - 0.9 x10(3)/mc L [facility] Eos % 0.1 % [facility] Eosinophils Abs 0.0 0.0 - 0.4 x10(3)/mc L [facility] Basophil % 0.2 % [facility] Baso Absolute 0.0 0.0 - 0.1 x10(3)/mc L [facility] Immature Gran % 0.90 % [facility] Comment: Immature granulocytes(IG's)percentage and absolute count will include metamyelocytes, myelocytes, and promyelocytes. Blood smears from CBCs yielding IG's will be scanned manually for concordance. If this scan disagrees with the automated IG or if promyelocytes are noted, a manual differential will be performed. Immature Gran Absolute 0.12(H) 0.00 - 0.04 x10(3)/mc L [facility] Blood 02/20/2024 4:23 AM EDT 02/20/2024 4:42 AM EDT Narrative Resulting Agency Comment Spec In Lab Minnie FRENCH HEMATOLOGY CECILIO ALEMAN [facility] [place] [address] * (ABNORMAL) Hemogram (02/20/2024 4:23 AM EDT) White Blood Cell 12.7(H) 4.0 - 9.5 x10(3)/mc L [facility] Red Blood Cell 4.26(L) 4.58 - 5.54 x10(6)/mc L [facility] Hemoglobin 12.3(L) 13.7 - 16.5 g/dL [facility] Hematocrit 37.1(L) 40.5 - 48.5 % [facility] Mean Cell Volume 87.1 82.9 - 93.1 fL [facility] Mean Cell Hemoglobin 28.9 27.5 - 32.1 pg [facility] Mean Cell Hemoglobin Concentration 33.2 32.0 - 35.7 g/dL [facility] Platelet 88(L) 145 - 357 x10(3)/mc L [facility] RDW Standard Deviation 43.5 36.0 - 45.0 [facility] RDW coefficient of variation 13.7 11.4 - 13.8 % [facility] Mean Platelet Volume 10.2 7.6 - 12.9 [facility] NRBC% auto 0.0 % [facility] NRBC Absolute 0.000 0.000 - 0.000 x10(3)/mc L [facility] Blood 02/20/2024 4:23 AM EDT 02/20/2024 4:42 AM EDT Narrative Resulting Agency Comment Spec In Lab Minnie FRENCH HEMATOLOGY CECILIO ALEMAN [facility] [place] [address] * (ABNORMAL) Basic Metabolic Panel (non-fasting) (02/20/2024 4:23 AM EDT) Glucose 113 65 - 199 mg/dL [facility] Comment:Diabetes: >=200 mg/d L plus symptoms Blood Urea Nitrogen 20 10 - 20 mg/dL [facility] Comment:result rechecked-[place] Creatinine 0.71(L) 0.80 - 1.50 mg/dL [facility] Sodium 135 135 - 145 mmol/L [facility] Potassium 3.9 3.5 - 5.0 mmol/L [facility] Comment: Please note: ??Patients with WBC >100,000 may have falsely elevated Potassium levels. ??For accurate Potassium quantification in these patients send serum separator tube (gold top) for subsequent determinations. ??Contact the Clinical Chemistry Laboratory if there are any questions. Chloride 102 98 - 107 mmol/L [facility] Carbon Dioxide 25 22 - 31 mmol/L [facility] Anion Gap 8 5 - 15 mmol/L [facility] Calcium 8.7 8.5 - 10.5 mg/dL [facility] Comment:result rechecked-[place] Est Glomerular Filtration Rate 102 >=60 mL/min/1. 73 m?? [facility] [...] MD CHEMISTRY ORDERABLE S Performing Organization Address [facility] Co de Phone Number [facility] [place] [address] * Potassium (02/19/2024 3:57 AM EDT) Potassium 4.3 3.5 - 5.0 mmol/L [facility] [...] MD CHEMISTRY ORDERABLE S Performing Organization Address [facility] Co de Phone Number [facility] [place] [address] * POCT Glucose (02/18/2024 8:24 AM EDT) Glucose, POC 157 65 - 199 mg/dL [facility] Comment: Supplemental ranges: <140 mg/dL before meals <180 mg/dL all other times of the day Blood 02/18/2024 8:24 AM EDT 02/18/2024 8:24 AM EDT Hayder Graham MD POINT OF CARE TEST ORDERABLES [facility] [place] [address] * Scan, Peripheral Blood (02/18/2024 1:40 AM EDT) Pathologist [facility] Plat estimate Decreased [facility] RBC Morphology Normal [facility] Blood 02/18/2024 1:40 AM EDT 02/18/2024 1:56 AM EDT Narrative Resulting Agency Comment Spec In Lab Neftali FRNECH HEMATOLOGY ORDER OLE Performing Organization Address City/[facility]/ZIP Co de Phone Number [facility] [place] [address] * (ABNORMAL) Differential, Automated (02/18/2024 1:40 AM EDT) [facility] Neutrophil % 87.1 % [facility] Neutrophil Absolute 15.03(H) 1.70 - 6.10 x10(3)/mc L [facility] Lymph % 3.0 % [facility] Lymphocytes Abs 0.5(L) 0.9 - 3.2 x10(3)/mc L [facility] Monocyte % 9.1 % [facility] Monocyte Abs 1.6(H) 0.3 - 0.9 x10(3)/mc L [facility] Eos % 0.0 % [facility] Eosinophils Abs 0.0 0.0 - 0.4 x10(3)/mc L [facility] Basophil % 0.2 % [facility] Baso Absolute 0.0 0.0 - 0.1 x10(3)/mc L [facility] Immature Gran % 0.60 % [facility] Comment: Immature granulocytes(IG's)percentage and absolute count will include metamyelocytes, myelocytes, and promyelocytes. Blood smears from CBCs yielding IG's will be scanned manually for concordance. If this scan disagrees with the automated IG or if promyelocytes are noted, a manual differential will be performed. Immature Gran Absolute 0.10(H) 0.00 - 0.04 x10(3)/mc L [facility] Blood 02/18/2024 1:40 AM EDT 02/18/2024 1:56 AM EDT Narrative Resulting Agency Comment Spec In Lab Neftali FRENCH HEMATOLOGY ORDER OLE [facility] [place] [address] * (ABNORMAL) Hemogram (02/18/2024 1:40 AM EDT) White Blood Cell 17.2(H) 4.0 - 9.5 x10(3)/ L [facility] Red Blood Cell 4.71 4.58 - 5.54 x10(6)/ L [facility] Hemoglobin 13.7 13.7 - 16.5 g/dL [facility] Hematocrit 39.2(L) 40.5 - 48.5 % [facility] Mean Cell Volume 83.2 82.9 - 93.1 fL [facility] Mean Cell Hemoglobin 29.1 27.5 - 32.1 pg [facility] Mean Cell Hemoglobin Concentration 34.9 32.0 - 35.7 g/dL [facility] Platelet 147 145 - 357 x10(3)/mc L [facility] RDW Standard Deviation 39.9 36.0 - 45.0 [facility] RDW coefficient of variation 13.2 11.4 - 13.8 % [facility] Mean Platelet Volume 9.9 7.6 - 12.9 fL [facility] NRBC% auto 0.0 % [facility] NRBC Absolute 0.000 0.000 - 0.000 x10(3)/ L [facility] Blood 02/18/2024 1:40 AM EDT 02/18/2024 1:56 AM EDT Narrative Resulting Agency Comment Spec In Lab Neftali FRENCH HEMATOLOGY ORDER OLE [facility] [place] [address] * (ABNORMAL) Basic Metabolic Panel (non-fasting) (02/18/2024 1:40 AM EDT) Glucose 176 65 - 199 mg/dL [facility] Comment:Diabetes: >=200 mg/d L plus symptoms Blood Urea Nitrogen 10 10 - 20 mg/dL [facility] Creatinine 0.65(L) 0.80 - 1.50 mg/dL [facility] Sodium 135 135 - 145 mmol/L [facility] Potassium 4.2 3.5 - 5.0 mmol/L [facility] Comment: Please note: ??Patients with WBC >100,000 may have falsely elevated Potassium levels. ??For accurate Potassium quantification in these patients send serum separator tube (gold top) for subsequent determinations. ??Contact the Clinical Chemistry Laboratory if there are any questions. Chloride 106 98 - 107 mmol/L [facility] Carbon Dioxide 20(L) 22 - 31 mmol/L [facility] Anion Gap 9 5 - 15 mmol/L [facility] Calcium 7.6(L) 8.5 - 10.5 mg/dL [facility] Est Glomerular Filtration Rate 105 >=60 mL/min/1. 73 m?? [facility] [...] MD CHEMISTRY ORDERABLE S Performing Organization Address City/[facility]/ZIP Co de Phone Number [facility] [place] [address] * (ABNORMAL) Troponin (02/18/2024 1:40 AM EDT) Troponin-T, High Sensitivity 342(H) <=22 ng/L [facility] Comment: This patient's troponin T [...] troponin value can be found in the [facility] Test Catalog Troponin - [facility] Test Catalog Reference: [place] Definition of Myocardial Infarction. Journal of the [place] [employer] 2018;72:2436-5701 Blood 02/18/2024 1:40 AM EDT 02/18/2024 1:56 AM EDT Narrative Resulting Agency Comment Spec In Lab Hayder Graham MD CHEMISTRY ORDERABLE S [facility] [place] [address] * POCT Glucose (02/17/2024 8:13 PM EDT) Glucose, POC 142 65 - 199 mg/dL [facility] Comment: Supplemental ranges: <140 mg/dL before meals <180 mg/dL all other times of the day Blood 02/17/2024 8:13 PM EDT 02/17/2024 8:13 PM EDT Hayder Graham MD POINT OF CARE TEST ORDERABLES Performing Organization Address [facility] Co de Phone Number [facility] [place] [address] * POCT Glucose (02/17/2024 5:42 PM EDT) Glucose, POC 160 65 - 199 mg/dL [facility] Comment: Supplemental ranges: <140 mg/dL before meals <180 mg/dL all other times of the day Blood 02/17/2024 5:42 PM EDT 02/17/2024 5:42 PM EDT Hayder Graham MD POINT OF CARE TEST ORDERABLES Performing Organization Address [facility]/ZIP Co de Phone Number [facility] [place] [address] * Hemoglobin (02/17/2024 5:42 PM EDT) Hemoglobin 13.7 13.7 - 16.5 g/dL [facility] Blood 02/17/2024 5:42 PM EDT 02/17/2024 6:10 PM EDT Narrative Resulting Agency Comment Spec In Lab Hayder Graham MD HEMATOLOGY ORDERABL ES [facility] [place] [address] * Potassium (02/17/2024 5:42 PM EDT) Potassium 4.3 3.5 - 5.0 mmol/L [facility] Co de Phone Number [facility] [place] [address] * (ABNORMAL) BLOOD GAS 2 ARTERIAL (02/17/2024 4:18 PM EDT) pH, Arterial 7.34(L) 7.35 - 7.45 [facility] PCO2, Arterial 40 35 - 45 mmHg [facility] PO2, Arterial 78(L) 85 - 104 mmHg [facility] Bicarbonate, Arterial 20.8 20.0 - 26.0 mmol/L [facility] Base Excess, Arterial -5.1(L) -3.0 - 3.0 mmol/L [facility] Hgb Blood Gas 14.6 13.7 - 16.5 g/dL [facility] Oxyhemoglobin, Arterial 93.0(L) 94.0 - 97.0 % [facility] Carboxyhemoglob in, Arterial 0.3 % [facility] Comment: Nonsmokers: 0.5-1.5% COHB Smokers: Variable, but usually less than 10% Toxic: 20-30% COHB Lethal: Greater than 60% COHB Methemoglobin, Arterial 0.8 <=1.5 % [facility] Na Whole Blood 136 135 - 145 mmol/L [facility] K Whole Blood 4.1 3.5 - 5.0 mmol/L [facility] Comment: Please note: Patients with WBC >100,000 may have falsely elevated Potassium levels. Contact the Clinical Chemistry Laboratory if there are any questions. ICa Whole Blood 1.10(L) 1.15 - 1.33 mmol/L [facility] Comment: Note: ??Total bilirubin higher than 20 mg/dL may lead to falsely low ionized calcium. CL Whole Blood 105 98 - 107 mmol/L [facility] Gluc Whole Bld 159 65 - 199 mg/dL [facility] Comment:Diabetes: >=200 mg/d L plus symptoms. Lactate WB 1.2 0.5 - 2.2 mmol/L [facility] FIO2 Art 40 % [facility] PF Ratio Art 195 [facility] Blood 02/17/2024 4:18 PM EDT 02/17/2024 4:18 PM EDT Hayder Graham MD POINT OF CARE TEST ORDERABLES [facility] [place] [address] * XR Chest One View (02/17/2024 1:44 PM EDT) [employer] WORKSTATION ID [id number] DH RAD Anatomical Region Laterality Modality Chest N/A Digital Radiogra phy Impressions 02/17/2024 2:12 PM EDT 1. ??No definite pleural fluid collection or pneumothorax. 2. ??Right IJ Cornelia-Kaila catheter tip terminates in a descending branch [...] please contact the health patient care technician that requested your imaging first. ? Electronically signed by: Denzel Hankins MD, [facility] ??([phone]), at 02/17/2024 2:12 PM Narrative 02/17/2024 2:12 PM EDT EXAMINATION: XR CHEST ONE VIEW CLINICAL HISTORY: s/p avr/cabg eval effusions TECHNIQUE: 1 view of the chest COMPARISON: Chest x-ray 01/09/2024, chest CT 02/03/2024 FINDINGS: ET tube tip terminates 5.2 cm above the carlos. Right IJ Cornelia-Kaila catheter tip terminates in a descending branch [...] 5.2 cm above the carlos. Right IJ Cornelia-Ganzcatheter tip terminates in a descending branch of [...] fluid collection or pneumothorax. 2. Right IJ Cornelia-Kaila catheter tip terminates in a descending branch ofthe right pulmonary artery. Suggest catheter retraction. 3. Additional support lines and tubes as above. Thank you for letting us participate in the care of this patient. If youare a health care provider and have any questions regarding this report,please contact the number below. For patients who have questions please contactthe health patient care technician that requested your imaging first. Hayder Graham MD IMG DX ORDERABLES * (ABNORMAL) BLOOD GAS 2 ARTERIAL (02/17/2024 1:31 PM EDT) pH, Arterial 7.35 7.35 - 7.45 [facility] PCO2, Arterial 39 35 - 45 mmHg [facility] PO2, Arterial 320(H) 85 - 104 mmHg [facility] Bicarbonate, Arterial 21.4 20.0 - 26.0 mmol/L [facility] Base Excess, Arterial -4.2(L) -3.0 - 3.0 mmol/L [facility] Hgb Blood Gas 14.1 13.7 - 16.5 g/dL [facility] Oxyhemoglobin, Arterial 97.9(H) 94.0 - 97.0 % [facility] Carboxyhemoglob in, Arterial 0.3 % [facility] Comment: Nonsmokers: 0.5-1.5% COHB Smokers: Variable, but usually less than 10% Toxic: 20-30% COHB Lethal: Greater than 60% COHB Methemoglobin, Arterial 0.7 <=1.5 % [facility] Na Whole Blood 137 135 - 145 mmol/L [facility] K Whole Blood 4.2 3.5 - 5.0 mmol/L [facility] Comment: Please note: Patients with WBC >100,000 may have falsely elevated Potassium levels. Contact the Clinical Chemistry Laboratory if there are any questions. ICa Whole Blood 1.13(L) 1.15 - 1.33 mmol/L [facility] Comment: Note: ??Total bilirubin higher than 20 mg/dL may lead to falsely low ionized calcium. CL Whole Blood 108(H) 98 - 107 mmol/L [facility] Gluc Whole Bld 136 65 - 199 mg/dL [facility] Comment:Diabetes: >=200 mg/d L plus symptoms. Lactate WB 1.1 0.5 - 2.2 mmol/L [facility] FIO2 Art 100 % [facility] PF Ratio Art 320 [facility] Blood 02/17/2024 1:31 PM EDT 02/17/2024 1:31 PM EDT Hayder Graham MD POINT OF CARE TEST ORDERABLES [facility] [place] [address] * (ABNORMAL) Coox2 (02/17/2024 1:21 PM EDT) pO2, Coox 44 mmHg [facility] Hgb Blood Gas 13.1(L) 13.7 - 16.5 g/dL [facility] Oxyhemoglobin, Coox 76.4 % [facility] Carboxyhemoglo bin, Coox 0.3 % [facility] Comment: Nonsmokers: 0.5-1.5% COHB Smokers: Variable, but usually less than 10% Toxic: 20-30% COHB Lethal: Greater than 60% COHB Methemoglobin, Coox 0.8 <=1.5 % [facility] Source Coox Mixed Venous [facility] Blood 02/17/2024 1:21 PM EDT 02/17/2024 1:21 PM EDT Hayder Graham MD POINT OF CARE TEST ORDERABLES [facility] [place] [address] * (ABNORMAL) BLOOD GAS 2 ARTERIAL (02/17/2024 12:14 PM EDT) pH, Arterial 7.39 7.35 - 7.45 [facility] PCO2, Arterial 40 35 - 45 mmHg [facility] PO2, Arterial 338(H) 85 - 104 mmHg [facility] Bicarbonate, Arterial 23.7 20.0 - 26.0 mmol/L [facility] Base Excess, Arterial -1.3 -3.0 - 3.0 mmol/L [facility] Hgb Blood Gas 11.0(L) 13.7 - 16.5 g/dL [facility] Oxyhemoglobin, Arterial 98.8(H) 94.0 - 97.0 % [facility] Carboxyhemoglob in, Arterial 0.3 % [facility] Comment: Nonsmokers: 0.5-1.5% COHB Smokers: Variable, but usually less than 10% Toxic: 20-30% COHB Lethal: Greater than 60% COHB Methemoglobin, Arterial 0.3 <=1.5 % [facility] Na Whole Blood 135 135 - 145 mmol/L [facility] K Whole Blood 5.1(H) 3.5 - 5.0 mmol/L [facility] Comment: Please note: Patients with WBC >100,000 may have falsely elevated Potassium levels. Contact the Clinical Chemistry Laboratory if there are any questions. ICa Whole Blood 1.13(L) 1.15 - 1.33 mmol/L [facility] Comment: Note: ??Total bilirubin higher than 20 mg/dL may lead to falsely low ionized calcium. CL Whole Blood 106 98 - 107 mmol/L [facility] Gluc Whole Bld 132 65 - 199 mg/dL [facility] Comment:Diabetes: >=200 mg/d L plus symptoms. Lactate WB 1.4 0.5 - 2.2 mmol/L [facility] Blood 02/17/2024 12:1 4 PM EDT 02/17/2024 12:14 PM EDT Hayder Graham MD POINT OF CARE TEST ORDERABLES Performing Organization Address [facility]/ZIP Co de Phone Number [facility] [place] [address] * (ABNORMAL) Fibrinogen (02/17/2024 12:10 PM EDT) Fibrinogen 154(L) 200 - 393 mg/dL [facility] Comment: OR [...] MD HEMATOLOGY ORDERABLE S Performing Organization Address City/[facility]/ZIP Co de Phone Number [facility] [place] [address] * (ABNORMAL) Thrombin time (02/17/2024 12:10 PM EDT) Thrombin Time 18(H) 10 - 17 sec [facility] Comment: OR [...] MD HEMATOLOGY ORDERABLE S Performing Organization Address [facility] Co de Phone Number [facility] [place] [address] * APTT (02/17/2024 12:10 PM EDT) Partial Thromboplastin Time 33 25 - 37 sec [facility] Comment: OR [...] MD HEMATOLOGY ORDERABLE S Performing Organization Address [facility] Co de Phone Number [facility] [place] [address] * (ABNORMAL) Prothrombin Time (02/17/2024 12:10 PM EDT) Prothrombin Time 16.7(H) 9.4 - 12.5 sec [facility] Comment: OR Result called by ?? LOMARL OR Results read back by: ? alondra pagan at 2024-02-17 12:41:48 International Normalization Ratio 1.5 [facility] Comment: [...] Lab Tara York MD HEMATOLOGY ORDERABLE S [facility] [place] [address] * (ABNORMAL) Hemogram (02/17/2024 12:10 PM EDT) White Blood Cell 11.1(H) 4.0 - 9.5 x10(3)/mc L [facility] Red Blood Cell 3.50(L) 4.58 - 5.54 x10(6)/mc L [facility] Hemoglobin 10.4(L) 13.7 - 16.5 g/dL [facility] Hematocrit 30.2(L) 40.5 - 48.5 % [facility] Comment: This result has been called to ALONDRA PAGAN by Eddie López on 02 17 2024 at 1226, and has been read back. Mean Cell Volume 86.3 82.9 - 93.1 fL [facility] Mean Cell Hemoglobin 29.7 27.5 - 32.1 pg [facility] Mean Cell Hemoglobin Concentration 34.4 32.0 - 35.7 g/dL [facility] Platelet 118(L) 145 - 357 x10(3)/mc L [facility] LABORATORY RDW Standard Deviation 40.2 36.0 - 45.0 [facility] LABORATORY RDW coefficient of variation 12.8 11.4 - 13.8 % [facility] Mean Platelet Volume 9.5 7.6 - 12.9 fL [facility] NRBC% auto 0.0 % [facility] NRBC Absolute 0.000 0.000 - 0.000 x10(3)/mc L [facility] Blood 02/17/2024 12:1 0 PM EDT 02/17/2024 12:19 PM EDT Narrative Resulting Agency Comment Spec In Lab Tara York MD HEMATOLOGY ORDERABLE S [facility] [place] [address] * (ABNORMAL) BLOOD GAS 2 ARTERIAL (02/17/2024 11:43 AM EDT) pH, Arterial 7.38 7.35 - 7.45 [facility] PCO2, Arterial 40 35 - 45 mmHg [facility] PO2, Arterial 304(H) 85 - 104 mmHg [facility] Bicarbonate, Arterial 23.2 20.0 - 26.0 mmol/L [facility] Base Excess, Arterial -1.9 -3.0 - 3.0 mmol/L [facility] Hgb Blood Gas 11.1(L) 13.7 - 16.5 g/dL [facility] Oxyhemoglobin, Arterial 98.6(H) 94.0 - 97.0 % [facility] Carboxyhemoglob in, Arterial 0.3 % [facility] Comment: Nonsmokers: 0.5-1.5% COHB Smokers: Variable, but usually less than 10% Toxic: 20-30% COHB Lethal: Greater than 60% COHB Methemoglobin, Arterial 0.3 <=1.5 % [facility] Na Whole Blood 133(L) 135 - 145 mmol/L [facility] K Whole Blood 6.2(Critic al) 3.5 - 5.0 mmol/L [facility] Comment: Noted by instrumentation and controls designer. Please note: Patients with WBC >100,000 may have falsely elevated Potassium levels. Contact the Clinical Chemistry Laboratory if there are any questions. ICa Whole Blood 0.97(L) 1.15 - 1.33 mmol/L [facility] Comment: Note: ??Total bilirubin higher than 20 mg/dL may lead to falsely low ionized calcium. CL Whole Blood 104 98 - 107 mmol/L [facility] Gluc Whole Bld 128 65 - 199 mg/dL [facility] Comment:Diabetes: >=200 mg/d L plus symptoms. Lactate WB 1.1 0.5 - 2.2 mmol/L [facility] Blood 02/17/2024 11:4 3 AM EDT 02/17/2024 11:43 AM EDT Hayder Graham MD POINT OF CARE TEST ORDERABLES [facility] [place] [address] * (ABNORMAL) BLOOD GAS 2 ARTERIAL (02/17/2024 11:08 AM EDT) pH, Arterial 7.38 7.35 - 7.45 [facility] PCO2, Arterial 38 35 - 45 mmHg [facility] PO2, Arterial 334(H) 85 - 104 mmHg [facility] Bicarbonate, Arterial 22.0 20.0 - 26.0 mmol/L [facility] Base Excess, Arterial -3.2(L) -3.0 - 3.0 mmol/L [facility] Hgb Blood Gas 10.8(L) 13.7 - 16.5 g/dL [facility] Oxyhemoglobin, Arterial 98.7(H) 94.0 - 97.0 % [facility] Carboxyhemoglob in, Arterial 0.3 % [facility] Comment: Nonsmokers: 0.5-1.5% COHB Smokers: Variable, but usually less than 10% Toxic: 20-30% COHB Lethal: Greater than 60% COHB Methemoglobin, Arterial 0.3 <=1.5 % [facility] Na Whole Blood 131(L) 135 - 145 mmol/L [facility] K Whole Blood 6.4(Critic al) 3.5 - 5.0 mmol/L [facility] Comment: Noted by instrumentation and controls designer. Please note: Patients with WBC >100,000 may have falsely elevated Potassium levels. Contact the Clinical Chemistry Laboratory if there are any questions. ICa Whole Blood 0.98(L) 1.15 - 1.33 mmol/L [facility] Comment: Note: ??Total bilirubin higher than 20 mg/dL may lead to falsely low ionized calcium. CL Whole Blood 104 98 - 107 mmol/L [facility] Gluc Whole Bld 127 65 - 199 mg/dL [facility] Comment:Diabetes: >=200 mg/d L plus symptoms. Lactate WB 1.0 0.5 - 2.2 mmol/L [facility] Blood 02/17/2024 11:0 8 AM EDT 02/17/2024 11:08 AM EDT Hayder Graham MD POINT OF CARE TEST ORDERABLES Performing Organization Address [facility]/ZIP Co de Phone Number [facility] [place] [address] * (ABNORMAL) Hemoglobin and Hematocrit, blood (02/17/2024 11:04 AM EDT) Hemoglobin 9.6(L) 13.7 - 16.5 g/dL [facility] Hematocrit 28.0(L) 40.5 - 48.5 % [facility] Comment: This result has been called to ALONDRA PAGAN by Eddie López on 02 17 2024 at 1120, and has been read back. Blood 02/17/2024 11:0 4 AM EDT 02/17/2024 11:12 AM EDT Narrative Resulting Agency Comment Spec In Lab Hayder Graham MD HEMATOLOGY ORDERABL ES Performing Organization Address City/[facility]/[place] [address] * (ABNORMAL) Platelet count (02/17/2024 11:04 AM EDT) Platelet 106(L) 145 - 357 x10(3)/mc L [facility] Immature Plt % 1.6 0.0 - 7.4 % [facility] Comment: Limitation of the Immature Platelet Fraction (IPF)-May be less reliable when the platelet count is less than [id number]/uL due to statistical imprecision. The IPF value [...] in a decreased state of production. References: [employer] The Clinical Value of the Immature Platelet Fraction (IPF) in Cell Recovery Document Number [id number] 03/2011 [employer] The Role of the Immature Platelet Fraction (IPF) in the Differential Diagnosis of Thrombocytopenia, Document [id number] V002/15/14 Blood 02/17/2024 11:0 4 AM EDT 02/17/2024 11:12 AM EDT Narrative Resulting Agency Comment Spec In Lab Hayder Graham MD HEMATOLOGY ORDERABL ES Performing Organization Address City/State/[facility] Co de Phone Number [facility] [place] [address] * (ABNORMAL) Fibrinogen (02/17/2024 11:04 AM EDT) Fibrinogen 149(L) 200 - 393 mg/dL [facility] Comment: OR Result called by ?? SALVLT OR Results read back by: ? Alondra Pagan at 2024-02-17 11:30:47 A fibrinogen level >100 mg/dL is adequate for hemostasis in most patients without underlying bleeding disorders. Blood 02/17/2024 11:0 4 AM EDT 02/17/2024 11:12 AM EDT Narrative Resulting Agency Comment Spec In Lab Hayder Graham MD HEMATOLOGY ORDERABL ES [facility] [place] [address] * (ABNORMAL) BLOOD GAS 2 ARTERIAL (02/17/2024 10:41 AM EDT) pH, Arterial 7.37 7.35 - 7.45 [facility] PCO2, Arterial 44 35 - 45 mmHg [facility] PO2, Arterial 335(H) 85 - 104 mmHg [facility] Bicarbonate, Arterial 24.9 20.0 - 26.0 mmol/L [facility] Base Excess, Arterial -0.4 -3.0 - 3.0 mmol/L [facility] Hgb Blood Gas 11.5(L) 13.7 - 16.5 g/dL [facility] Oxyhemoglobin, Arterial 98.9(H) 94.0 - 97.0 % [facility] Carboxyhemoglob in, Arterial 0.1 % [facility] Comment: Nonsmokers: 0.5-1.5% COHB Smokers: Variable, but usually less than 10% Toxic: 20-30% COHB Lethal: Greater than 60% COHB Methemoglobin, Arterial 0.3 <=1.5 % [facility] Na Whole Blood 132(L) 135 - 145 mmol/L [facility] K Whole Blood 5.9(H) 3.5 - 5.0 mmol/L [facility] Comment: Please note: Patients with WBC >100,000 may have falsely elevated Potassium levels. Contact the Clinical Chemistry Laboratory if there are any questions. ICa Whole Blood 1.02(L) 1.15 - 1.33 mmol/L [facility] Comment: Note: ??Total bilirubin higher than 20 mg/dL may lead to falsely low ionized calcium. CL Whole Blood 104 98 - 107 mmol/L [facility] Gluc Whole Bld 129 65 - 199 mg/dL [facility] Comment:Diabetes: >=200 mg/d L plus symptoms. Lactate WB 1.1 0.5 - 2.2 mmol/L [facility] Blood 02/17/2024 10:4 1 AM EDT 02/17/2024 10:41 AM EDT Hayder Graham MD POINT OF CARE TEST ORDERABLES [facility] [place] [address] * (ABNORMAL) BLOOD GAS 2 ARTERIAL (02/17/2024 10:06 AM EDT) pH, Arterial 7.38 7.35 - 7.45 [facility] PCO2, Arterial 42 35 - 45 mmHg [facility] PO2, Arterial 329(H) 85 - 104 mmHg [facility] Bicarbonate, Arterial 24.7 20.0 - 26.0 mmol/L [facility] Base Excess, Arterial -0.3 -3.0 - 3.0 mmol/L [facility] Hgb Blood Gas 11.0(L) 13.7 - 16.5 g/dL [facility] Oxyhemoglobin, Arterial 99.0(H) 94.0 - 97.0 % [facility] Carboxyhemoglob in, Arterial 0.3 % [facility] Comment: Nonsmokers: 0.5-1.5% COHB Smokers: Variable, but usually less than 10% Toxic: 20-30% COHB Lethal: Greater than 60% COHB Methemoglobin, Arterial 0.3 <=1.5 % [facility] Na Whole Blood 132(L) 135 - 145 mmol/L [facility] K Whole Blood 6.0(H) 3.5 - 5.0 mmol/L [facility] Comment: Please note: Patients with WBC >100,000 may have falsely elevated Potassium levels. Contact the Clinical Chemistry Laboratory if there are any questions. ICa Whole Blood 0.97(L) 1.15 - 1.33 mmol/L [facility] Comment: Note: ??Total bilirubin higher than 20 mg/dL may lead to falsely low ionized calcium. CL Whole Blood 102 98 - 107 mmol/L [facility] Gluc Whole Bld 123 65 - 199 mg/dL [facility] Comment:Diabetes: >=200 mg/d L plus symptoms. Lactate WB 1.1 0.5 - 2.2 mmol/L [facility] Blood 02/17/2024 10:0 6 AM EDT 02/17/2024 10:06 AM EDT Hayder Graham MD POINT OF CARE TEST ORDERABLES [facility] [place] [address] * Surgical Pathology Report (02/17/2024 10:01 AM EDT) Final Diagnosis [id number] ? Location: [facility]; [facility]; The signing pathologist has (i) examined the relevant preparation(s) for the specimen(s) and (ii) rendered or confirmed the diagnosis(es). . ?Surgical Pathology DIAGNOSIS Aortic valve leaflets, excision: Valve leaflets with myxoid degeneration, nodular fibrosis and dystrophic calcifications. Electronically signed by: ?Livier Montoya MD Verified: ??02/24/2024 13:49 ??Pathologist Performed at: ??-[facility] [place], [place] [address] Title Closer: Job Brewer MD, FCAP, ??IA Certificate: [id number] SPECIMEN(S) SUBMITTED A - Aortic Valve Leaflets, [...] Sections Processing Blocks submitted for decalcification: A1. Geologist Pet[employer] sections in 1 cassette labeled A1. ??ajw 02/24/2024 1:49 PM EDT [facility] AORTIC STRUCTURE / Unknown 02/17/2024 10:01 AM EDT 02/17/2024 10:01 AM EDT Hayder Graham MD PATHOLOGY/CYTOLOGY ORDERABLES [facility] [place] [address] * Specimen to Pathology (02/17/2024 10:01 AM EDT) AP Specimen 02/17/2024 10:0 1 AM EDT 02/17/2024 10:01 AM EDT Narrative [facility] - 02/17/2024 10:01 AM EDT Specimen requisition ordered. ??Separate Pathology report to follow Hayder Graham MD PATHOLOGY/CYTOLOGY ORDERABLES Performing Organization Address City/[facility]/ZIP Co de Phone Number [facility] [place] [address] * (ABNORMAL) BLOOD GAS 2 ARTERIAL (02/17/2024 9:35 AM EDT) pH, Arterial 7.33(L) 7.35 - 7.45 [facility] PCO2, Arterial 35 35 - 45 mmHg [facility] PO2, Arterial 318(H) 85 - 104 mmHg [facility] Bicarbonate, Arterial 17.9(L) 20.0 - 26.0 mmol/L [facility] Base Excess, Arterial -8.0(L) -3.0 - 3.0 mmol/L [facility] Hgb Blood Gas 11.0(L) 13.7 - 16.5 g/dL [facility] Oxyhemoglobin, Arterial 98.8(H) 94.0 - 97.0 % [facility] Carboxyhemoglob in, Arterial 0.3 % [facility] Comment: Nonsmokers: 0.5-1.5% COHB Smokers: Variable, but usually less than 10% Toxic: 20-30% COHB Lethal: Greater than 60% COHB Methemoglobin, Arterial 0.3 <=1.5 % [facility] Na Whole Blood 131(L) 135 - 145 mmol/L [facility] K Whole Blood 5.8(H) 3.5 - 5.0 mmol/L [facility] Comment: Please note: Patients with WBC >100,000 may have falsely elevated Potassium levels. Contact the Clinical Chemistry Laboratory if there are any questions. ICa Whole Blood 0.98(L) 1.15 - 1.33 mmol/L [facility] Comment: Note: ??Total bilirubin higher than 20 mg/dL may lead to falsely low ionized calcium. CL Whole Blood 101 98 - 107 mmol/L [facility] Gluc Whole Bld 122 65 - 199 mg/dL [facility] Comment:Diabetes: >=200 mg/d L plus symptoms. Lactate WB 0.8 0.5 - 2.2 mmol/L [facility] Blood 02/17/2024 9:35 AM EDT 02/17/2024 9:35 AM EDT Hayder Graham MD POINT OF CARE TEST ORDERABLES [facility] [place] [address] * (ABNORMAL) BLOOD GAS 2 VENOUS (02/17/2024 9:34 AM EDT) pH, Venous 7.22(Criti marquez) 7.32 - 7.42 [facility] Comment:Noted by instrumentation and controls designer. PCO2, Venous 43 41 - 51 mmHg [facility] Comment:Noted by instrumentation and controls designer. PO2, Venous 57(H) 25 - 40 mmHg [facility] Comment:Noted by instrumentation and controls designer. Bicarbonate, Venous 17.1 mmol/L [facility] Comment:Noted by instrumentation and controls designer. Base Excess, Venous -10.6 mmol/L [facility] Comment:Noted by instrumentation and controls designer. Hgb Blood Gas 11.2(L) 13.7 - 16.5 g/dL [facility] Comment:Noted by instrumentation and controls designer. Oxyhemoglobin, Venous 86.5 % [facility] Comment:Noted by instrumentation and controls designer. Carboxyhemoglob in, Venous 0.3 % [facility] Comment: Noted by instrumentation and controls designer. Nonsmokers: 0.5-1.5% COHB Smokers: Variable, but usually less than 10% Toxic: 20-30% COHB Lethal: Greater than 60% COHB Methemoglobin, Venous 0.0 <=1.5 % [facility] Comment:Noted by instrumentation and controls designer. Na Whole Blood 156(H) 135 - 145 mmol/L [facility] Comment:Noted by instrumentation and controls designer. K Whole Blood 5.5(H) 3.5 - 5.0 mmol/L [facility] Comment: Noted by instrumentation and controls designer. Please note: Patients with WBC >100,000 may have falsely elevated Potassium levels. Contact the Clinical Chemistry Laboratory if there are any questions. ICa Whole Blood 1.03(L) 1.15 - 1.33 mmol/L [facility] Comment: Noted by instrumentation and controls designer. Note: ??Total bilirubin higher than 20 mg/dL may lead to falsely low ionized calcium. CL Whole Blood 100 98 - 107 mmol/L [facility] Comment:Noted by instrumentation and controls designer. Gluc Whole Bld 132 65 - 199 mg/dL [facility] Comment: Noted by instrumentation and controls designer. Diabetes: >=200 mg/dL plus symptoms Lactate WB 1.0 0.5 - 2.2 mmol/L [facility] Comment:Noted by instrumentation and controls designer. Blood Gas Source Venous [facility] Blood 02/17/2024 9:34 AM EDT 02/17/2024 9:34 AM EDT Hayder Graham MD POINT OF CARE TEST ORDERABLES [facility] [place] [address] * (ABNORMAL) BLOOD GAS 2 ARTERIAL (02/17/2024 8:07 AM EDT) pH, Arterial 7.43 7.35 - 7.45 [facility] PCO2, Arterial 34(L) 35 - 45 mmHg [facility] PO2, Arterial 581(H) 85 - 104 mmHg [facility] Bicarbonate, Arterial 21.7 20.0 - 26.0 mmol/L [facility] Base Excess, Arterial -2.6 -3.0 - 3.0 mmol/L [facility] Hgb Blood Gas 14.5 13.7 - 16.5 g/dL [facility] Oxyhemoglobin, Arterial 99.0(H) 94.0 - 97.0 % [facility] Carboxyhemoglob in, Arterial 0.4 % [facility] Comment: Nonsmokers: 0.5-1.5% COHB Smokers: Variable, but usually less than 10% Toxic: 20-30% COHB Lethal: Greater than 60% COHB Methemoglobin, Arterial 0.3 <=1.5 % [facility] Na Whole Blood 139 135 - 145 mmol/L [facility] K Whole Blood 4.0 3.5 - 5.0 mmol/L [facility] Comment: Please note: Patients with WBC >100,000 may have falsely elevated Potassium levels. Contact the Clinical Chemistry Laboratory if there are any questions. ICa Whole Blood 1.09(L) 1.15 - 1.33 mmol/L [facility] Comment: Note: ??Total bilirubin higher than 20 mg/dL may lead to falsely low ionized calcium. CL Whole Blood 106 98 - 107 mmol/L [facility] Gluc Whole Bld 100 65 - 199 mg/dL [facility] Comment:Diabetes: >=200 mg/d L plus symptoms. Lactate WB 1.3 0.5 - 2.2 mmol/L [facility] Blood 02/17/2024 8:07 AM EDT 02/17/2024 8:07 AM EDT Hayder Graham MD POINT OF CARE TEST ORDERABLES Performing Organization Address [facility] Co de Phone Number [facility] [place] [address] * POCT Glucose (02/17/2024 6:38 AM EDT) Glucose, POC 98 65 - 199 mg/dL [facility] Comment: Supplemental ranges: <140 mg/dL before meals <180 mg/dL all other times of the day Blood 02/17/2024 6:38 AM EDT 02/17/2024 6:38 AM EDT Hayder Graham MD POINT OF CARE TEST ORDERABLES Performing Organization Address [facility] de Phone Number [facility] [place] [address] * Transesophageal Echo/OR (02/17/2024 6:33 AM EDT) [...] [facility] post-operative evaluation of cardiac function [...] 6 hours upon arrival to Unit. Give MI if unable to take PO, Routine Given [...] dose on Sat02/17/24 at 1400, Until Discontinued, [place] teeth and / or gums. Scan the CHG vial in the [employer] Me Q-Care Oral Care Kit from floor stock. Ventilator-associated pneumonia prophylaxis For use in ICU/Critical care locations ONLY. Obtain kit from Floor Stock location. Scan CHG vial in the [employer] Me Q-Care Oral Care Kit, Routine Given 02/17/2024 [...] PHENYLephrine and/or vasopressin ineffective. Call pager # [phone] if initiated. Titrate to keep systolic blood [...] executive housekeeper for additional fluid orders: pager #[phone]. Rate/Dose Verify 02/18/2024 8:00 AM EDT 1 mL/hr 1 mL/hr Rate/Dose Verify 02/18/2024 6:00 AM EDT 1 mL/hr 1 mL/hr Rate/Dose Verify 02/18/2024 4:00 AM EDT 1 mL/hr 1 mL/hr sodium chloride 0.9% infusion 10-30 mL/hr, Intravenous, DAILY PRN, Starting on Sat02/17/24 at 1307, Until Sat02/18/24 at 0835, Side port TKO rate, per [facility] nursing protocol. Rate/Dose Verify 02/17/2024 8:00 [...] are indicated., Routine 0021 (Given - Provider: oPlo Britton RN)0625 (Given - Provider: Polo Britton [...] Routine documented in this encounter Care Teams Schedule Manager Relationship Specialty Start Date End Date Aparna Jordan APRN PCP - General Family Medicine 10/21/23 05/26/24 documented as of this encounter
--- OUTSIDE RECORDS SUMMARY | 2024-10-27 10:36 | XMS_ITS | Encounter Summary ---
Author Organization [facility] [address] Care Team Providers Care Strip Machine Operator Name Role Phone Vanessa Christian APRN Primary Care Provider [phone] Encounter Details Date Type Department Care Team (Late st Contact Info) Description 10/21/2023 Abstract Cardiology at [address] [place] [address] Adam Mayes RN Social History [...] on filedocumented in this encounter Care Teams Strip Machine Operator Relationship Specialty Start Date End Date Vanessa Christian APRN PCP - General Family Medicine 10/21/23 05/26/24 documented as of this encounter
--- OUTSIDE RECORDS SUMMARY | 2024-10-27 10:36 | XMS_ITS | Encounter Summary ---
[place] [address] Care Team Providers Care Mounting Machine Operator Name Role Phone Victor M Lafleur MD Primary Care Provider Reason for Visit * Reason Onset Date Comments Referral 09/20/2023 Encounter Details Date Type Department Care Team (Late st Contact Info) Description 09/20/2023 Telephone Cardiology at [address] [phone] Karen Billy, manager of financial planning Social History Tobacco Use Types Packs/Day Years [...] on filedocumented in this encounter Care Teams Mounting Machine Operator Relationship Specialty Start Date End Date Victor M Lafleur MD PCP - General 10/02/13 10/20/23 documented as of this encounter
--- OUTSIDE RECORDS SUMMARY | 2024-10-27 10:36 | XMS_ITS | Encounter Summary ---
Author Organization [facility] [place] [address] Care Team Providers Care Hose Stripper Name Role Phone Vanessa Christian APRN Primary Care Provider [phone] Encounter Details Date Type Department Care Team (Late st Contact Info) Description 10/21/2023 Abstract Cardiology at [address] [place] [address] Adam Mayes RN Social History [...] on filedocumented in this encounter Care Teams Hose Stripper Relationship Specialty Start Date End Date Vanessa Christian APRN PCP - General Family Medicine 10/21/23 05/26/24 documented as of this encounter
--- OUTSIDE RECORDS SUMMARY | 2024-10-27 10:36 | XMS_ITS | Encounter Summary ---
Author Organization [facility] [place] [address] Care Team Providers Care Software Qa System Specialist Name Role Phone Vanessa Christian MAURI Primary Care Provider [phone] Reason for Visit * Auth/Cert (Routine) Specialty [...] ARTERIAL GRAFT (WRVU 7.93) Zak Farmer MD [facility] C[place] [address] [facility] Referral ID Status Reason Start Date Expiration Date Visits Re quested Visits Authorized [id number] 1 1 Encounter Details Date Type Department Care Team (Late st Contact Info) Description 02/17/2024 7:35 AM EDT Anesthesia Event Main Operating Room [facility] [place] [id number] Roman York MD [facility] [place] [address] Anesthesia Record Procedure Summary Procedure Name Responsible [...] by Driss Moncada RN 02/18/24 0930 by Sadqi Woo RN Chest Tube 02/17/24; Chest Tube ; Right; anterior; mediastinum; 28F angled, posterior to heart; 02/18/24; 92902/17/24 0000 by Driss Moncada RN 02/18/24 0930 by Sadiq Woo RN PIV 02/17/24; 0715; uire-svl-[id number] catheter system; 18 gauge; cephalic vein (lateral [...] th e electric, gas, oil, or water [employer] threatened to shut off services in your [...] Summary Date: 02/17/24 Room / Location: [facility] OR [address] [place] [address] MAIN OR Anesthesia Start: 734 Anesthesia Stop: [...] shown include unfiled device data. Patient Location: [facility] Level of Consciousness: Sedated [...] 08/14/2023 ??? Nevus of face 09/26/2023 Right hoahaoism No past surgical history on file. Social [...] mg documented in this encounter Care Teams Software Qa System Specialist Relationship Specialty Start Date End Date Vanessa Christian APRN PCP - General Family Medicine 10/21/23 05/26/24 documented as of this encounter
--- OUTSIDE RECORDS SUMMARY | 2024-10-27 10:36 | XMS_ITS | Encounter Summary ---
Author Organization [facility] [place] [address] Care Team Providers Care Microfilming Document Preparer Name Role Phone Vanessa Christian APRN Primary Care Provider [phone] Encounter Details Date Type Department Care Team (Late st Contact Info) Description 12/26/2023 Notes Only Cardiology at [address] [place] [address] Neftali Ernandez MD [facility] [address] Social History Tobacco Use Types Packs/Day Years [...] PM EDT Echocardiogram images reviewed from [facility]. Indeed, the aortic valve appears severely stenotic. Cannotrule out bicuspid valve documented in this encounter Plan of Treatment Not on file documented as of this encounter Visit Diagnoses Not on filedocumented in this encounter Care Teams Microfilming Document Preparer Relationship Specialty Start Date End Date Vanessa Christian APRN PCP - General Family Medicine 10/21/23 05/26/24 documented as of this encounter
--- OUTSIDE RECORDS SUMMARY | 2024-10-27 10:36 | XMS_ITS | Encounter Summary ---
[place] [address] Care Team Providers Care Newspaper Press Operator Apprentice Name Role Phone Vanessa Christian MAURI Primary Care Provider [phone] Reason for Visit * Auth/Cert (Routine) Specialty [...] RHC (WRVU 5.9) Rima Dickinson MD [facility] [place] [address] [facility] Referral ID Status Reason Start Date Expiration Date Visits Re quested Visits Authorized [id number] 1 1 Encounter Details Date Type Department Care Team (Late st Contact Info) Description 02/03/2024 10:00 AM EDT - 02/03/2024 11:00 AM [place] [address] Saira Lua MD CARDIAC CATHETERIZATION Social History [...] lbs Follow-up Visits 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 * CAD (Coronary Artery Disease): General Info ([place]ymraes) * Coronary Angiogram: Post-op ([place]ymraes) documented in this encounter Medications at Time [...] Pre-Procedure H&P Update: Cardiac Catheterization Karlos Anthony [id number] 1960 Chief Complaint: Aortic stenosis HPI: Mr. [...] is inthe chart Clarence Lane MD Interventional Shank Breaker 02/03/24 11:48 AM documented in this encounter Miscellaneous Notes * Brief Op Note - Clarence Lane MD - 02/03/2024 12:51 PM EDT Preliminary Cardiac Catheterization Procedure Note: Patient Name: Karlos Anthony : [id number] MR#: [id number] Case Date: 02/03/2024 Glove Cleaner: Surgeon(s) and Role: * Saira Lua MD [...] Other Narrative 02/12/2024 3:47 PM EDT ?[facility] ? Cardiac Catheterization/Intervention Report ? Patient Name: Patenaude, Karlos ? Procedure Date: 02/03/2024 ? A #: [id number] ? Primary Physician: Mogadam, Emad ? Case #: [id number] ? File Name: [id number] ? Catheterization Order Number: [id number] ? [facility] ? Final Report [place], [place] ? Patient Name: ? Karlos Patenaude ? ID#: [id number] ? : ?1960 ? Procedure Date: ? [...] Note Saira Lua MD - 02/12/2024 [facility] Cardiac Catheterization/Intervention Report Patient Name: Karlos Anthony Procedure Date: 02/03/2024 A #: [id number] Primary Physician: Saira Lua Case #: [id number] File Name: [id number] Catheterization Order Number: [id number] [facility] FinalReport [place], [place] Patient Name: Karlos Anthony ID#:[id number] :1960 Procedure Date: February 03, 2024 Case #: [id number] Room: 5 Case Physician: Saira Lua M.D. Start: 12:29 Fellow: Clarence Lane M.D. Admission:02/03/2024 Referring Physician: Zak Farmer M.D. Procedures: * Coronary Angiography History Karlos Anthoyn is a 63 year old man. He has hypertension. Thepatient's smoking status is Never. He also has hypercholesterolemia managedwith lipid therapy. Prior to the initiation of this procedure, thepatient was designated as ASA Class III. The [facility] clinical frailty scale is 3: Managing [...] (Bezet) 372 ms MUSE SYSTEM Calculated P [place] 59 degrees MUSE SYSTEM Calculated R [place] 34 degrees MUSE SYSTEM Calculated T [place] 63 degrees MUSE SYSTEM INTERPRETATION Sinus bradycardia [...] MD) documented in this encounter Care Teams Newspaper Press Operator Apprentice Relationship Specialty Start Date End Date Vanessa Christian APRN PCP - General Family Medicine 10/21/23 05/26/24 documented as of this encounter
--- OUTSIDE RECORDS SUMMARY | 2024-10-27 10:36 | XMS_ITS | Encounter Summary ---
Author Organization [facility] [place] [address] Care Team Providers Care Top Taper Machine Name Role Phone Vanessa Christian MAURI Primary Care Provider [phone] Reason for Visit * Auth/Cert (Routine) Specialty [...] [facility] [place] [address] [facility] Referral ID Status Reason Start Date Expiration Date Visits Re quested Visits Authorized [id number] 1 1 Encounter Details Date Type Department Care Team (Latest Contact Info) Description 02/03/2024 8:06 AM EDT - 02/03/2024 2:54 PM EDT Hospital Encounter [place] [address] Rima Dickinson MD [facility] [place] [address] Screening for cardiovascular condition; Aortic valve stenosis, [...] lbs Follow-up Visits 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 * CAD (Coronary Artery Disease): General Info (German) * Coronary Angiogram: Post-op (German) documented in this encounter Medications at Time [...] Pre-Procedure H&P Update: Cardiac Catheterization Karlos Anthony [id number] 1960 Chief Complaint: Aortic stenosis HPI: Mr. [...] is inthe chart Clarence Lane MD Interventional Mat Puncher 02/03/24 11:48 AM documented in this encounter Miscellaneous Notes * Brief Op Note - Clarence Lane MD - 02/03/2024 12:51 PM EDT Preliminary Cardiac Catheterization Procedure Note: Patient Name: Karlos Anthony : [id number] MR#: [id number] Case Date: 02/03/2024 Procurement Agent: Surgeon(s) and Role: * Saira Lua MD [...] Modality Other Narrative 02/12/2024 3:47 PM EDT ?[facility] ? Cardiac Catheterization/Intervention Report ? Patient Name: Patenaude, Karlos ? Procedure Date: 02/03/2024 ? A #: [id number] ? Primary Physician: Mogadam, Emad ? Case #: [id number] ? File Name: [id number] ? Catheterization Order Number: [id number] ? [facility] ? Final Report [place], [place] ? Patient Name: ? Karlos Anthony ? ID#: [id number] ? : ?1960 ? Procedure Date: ? [...] Procedure Note Saira Lua MD - 02/12/2024 [facility] Cardiac Catheterization/Intervention Report Patient Name: Karlos Anthony Procedure Date: 02/03/2024 A #: [id number] Primary Physician: Saira Lua Case #: [id number] File Name: [id number] Catheterization Order Number: [id number] [facility] FinalReport [place], [place] Patient Name: Karlos Anthony ID#:[id number] :1960 Procedure Date: February 03, 2024 Case [...] was designated as ASA Class III. The [facility] clinical frailty scale is 3: Managing [...] (Bezet) 372 ms MUSE SYSTEM Calculated P [place] 59 degrees MUSE SYSTEM Calculated R [place] 34 degrees MUSE SYSTEM Calculated T [place] 63 degrees MUSE SYSTEM INTERPRETATION Sinus bradycardia [...] MD) documented in this encounter Care Teams Top Taper Machine Relationship Specialty Start Date End Date Vanessa Christian, MAURI PCP - General Family Medicine 10/21/23 05/26/24 documented as of this encounter
--- OUTSIDE RECORDS SUMMARY | 2024-10-27 10:36 | XMS_ITS | Encounter Summary ---
Author Organization [facility] Address [facility] [place] [address] Care Team Providers Care Machine Setup Operator Name Role Phone Vanessa Christian POSTAL CLERK Primary Care Provider [phone] Reason for Referral * Diagnostic Test (Routine) - Closed Specialty Diagnoses / Procedures Referred By Contac t Referred To Contact Radiology Diagnoses Nonrheumatic aortic valve stenosis Procedures CT Chest wo Contrast (Generic) Louisa Reid PA [facility] [place] [address] [facility] [place] [address] Referral ID Status Reason Start Date Expiration Date V isits Requested Visits Authorized [id number] Closed Specialty Service Requested 01/10/2024 07/11/2025 1 1 Encounter Details Date Type Department Care Team (Late st Contact Info) Description 01/09/2024 Orders [place] [address] Zak Farmer MD [facility] [place] [address] Nonrheumatic aortic valve stenosis Social History Tobacco [...] wo Contrast (Generic) (02/03/2024 7:44 AM EDT) [employer] WORKSTATION ID [id number] RAD Anatomical Region Laterality Modality Chest Computed [...] MD, [facility] ([phone]), at 02/03/2024 10:00 AM Narrative 02/03/2024 10:00 [...] nodule along the minor fissure (series 302 [id number]) and a 8 mm right lower lobe [...] managed care that requested your imaging first. Electronically signed by: Rogerio Wright MD, [facility]([phone]), at 02/03/2024 10:00 AM Zak Farmer MD IMG CT ORDERABLES documented in this encounter Visit Diagnoses Diagnosis Nonrheumatic aortic valve stenosis Aortic valve disorders Nonrheumatic aortic valve stenosis Aortic valve disorders documented in this encounter Care Teams Machine Setup Operator Relationship Specialty Start Date End Date Vanessa Christian APRN PCP - General Family Medicine 10/21/23 05/26/24 documented as of this encounter
--- OUTSIDE RECORDS SUMMARY | 2024-10-27 10:36 | XMS_ITS | Encounter Summary ---
Author Organization [facility] Address [facility] Ivana linareseileen [place] [id number] Care Team Providers Care Benefits Counselor Name Role Phone Vanessa Christian MAURI Primary Care Provider [phone] Reason for Referral * Consultation (Routine) - Closed Specialty Diagnoses / Procedures Referred By Contac t Referred To Contact Cardiac Surgery Diagnoses Nonrheumatic aortic valve stenosis significant - TAVR ( defers to Card Surg d/t age) Errol Loya MD [facility] [place] [address] Zak Farmer MD [facility] [place] [address] Referral ID Status Reason Start Date Expiration Date V isits Requested Visits Authorized [id number] Closed Consult, Test & Treat 10/21/2023 10/20/2024 1 1 Reason for Visit * Reason Comments Chest Pain Shortness of Breath Aortic Stenosis Encounter Details Date Type Department Care Team (Late st Contact Info) Description 10/21/2023 1:20 PM EST Office Visit Cardiology at [address] [address] Errol Loya MD [facility] [place] [address] Nonrheumatic aortic valve stenosis Social History Tobacco [...] Problem List Diagnosis Aortic stenosis 12/2022 TTE ([facility]): VITA 0.8-0.9 cm2 (MG 28 mmHg, DOI 3.6 m/s, SVI 35 cc/m2). Trace regurgitation. Normal bi-v s/f, no other valve findings Gastroesophageal reflux Nevus of face Right buddhist Hypertension HLD (hyperlipidemia) MEDICATIONS: Current Outpatient Medications [...] disorders documented in this encounter Care Teams Benefits Counselor Relationship Specialty Start Date End Date Vanessa Christian APRN PCP - General Family Medicine 10/21/23 05/26/24 documented as of this encounter
--- OUTSIDE RECORDS SUMMARY | 2024-10-27 10:36 | XMS_ITS | Encounter Summary ---
Author Organization [facility] [place] [address] Care Team Providers Care Drum Builder Name Role Phone Aprana Jordan MAURI Primary Care Provider [phone] Reason for Visit * Auth/Cert (Routine) Specialty [...] Graham MD [facility] [place] [address] [facility] Referral ID Status Reason Start Date Expiration Date Visits Re quested Visits Authorized [id number] 1 1 Encounter Details Date Type Department Care Team (Late st Contact Info) Description 02/17/2024 7:30 AM EDT - 02/17/2024 1:26 PM EDT Surgery [place] [id number] Hayder Graham MD [facility] [place] [address] ENDOSCOPIC HARVEST VEIN(S) FOR CABG (WRVU 0.31) Social History Tobacco Use Types Packs/Day Years Used Date Smoking Tobacco: Former Cigarettes Smokeless Tobacco: Never Comments:Quit 15 + years ago Alcohol Use Standard Drinks/Week Comments Yes 0 (1 standard drink = 0.6 oz pur e alcohol) rare [facility] Utilities Answer Date Recorded In the past [...] Patient Age: 63 y.o. Birthdate: 1960 Language: Mozambican Race: White Ethnicity: Not nor Admit Date: 02/17/2024 Discharge Date: 02/24/24 Attending Physician: Hayder Graham MD Follow-up Recommendations for Providers: Please continue routine management of cardiovascular risk factors including blood pressure, lipids,glucose, etc. Please note any changes to medications. Patient to follow up with PCP, Aparna Jordan APRN, in 1-2 weeks. Patient to follow up with Youth Liaison Officer, Neftali Ernandez MD , in 2 weeks. Patient to follow up with Cardiac Surgeon, Dr. Hayder Graham, with a chest x-ray, EKG, and Echo. Inpatient Provider Contact Information: 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 Right shinto Past Surgical History: Procedure Laterality Date PRO CABG, ARTERIAL, SINGLE N/A 02/17/2024 @CABG, USING ARTERIAL GRAFT;SINGLE ARTERIAL GRAFT (WRVU 33.75) performed by Hayder Graham MD at [facility] MAIN OR PRO CABG, ARTERY-VEIN, TWO N/A 02/17/2024 @CABG, TWO VENOUS GRAFTS & ARTERIAL GRAFT (WRVU 7.93) performed by Hayder Graham MD at [facility] MAIN OR PRO ENDOSCOPY W/VIDEO-ASST VEIN HARVEST, CABG Left 02/17/2024 ENDOSCOPIC HARVEST VEIN(S) FOR CABG (WRVU 0.31) performed by Hayder Graham MD at [facility] MAIN OR PRO REPLACEMENT PROSTHETIC AORTIC VALVE OPEN W CARDIOPULMONARY BYPASS HOMOGRF/STENT N/A 02/17/2024 @REPLACE AORTIC VALVE, OPEN, W\CPB, W\PROSTHETIC VALVE (WRVU 41.32) performed by Hayder Graham MD at [facility] MAIN OR Prior To Admission Medications [...] insufficiency. He has glaucoma. He used to bacCurbStand until about 15 years ago. He has undergone prior herniorrhaphy. 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 Major Procedures/Operations: 02/17/24 s/p avr/cabgx3 CABG x 3 JOSE->LAD SVG->dRCA SVG->OM1 EVH from LLE AVR with a 23 mm Inspiris Bioprosthesis Hospital Course: Karlos Garcia was admitted to [facility] on 02/17/2024 via the Same Day Program. [...] Hayder Graham and/or the Cardiac Surgery Physician Sap Pp Consultant Team may be reached at . Antibiotic [...] Please refer to the card with the [place] Heart Association Guidelines for more information. You [...] Dr. Hayder Graham. You may use a [place] Track or treadmill but avoid any pulling [...] friends, go to a movie, go to islam, etc. Heavy activities: No hunting, skiing, jogging, [...] should resume a low fat, low cholesterol, [place] Heart Association Diet. Driving: No driving until [...] while being managed by your PCP and/or Youth Liaison Officer. For future medication refills, please refer to your PCP and/or Youth Liaison Officer after your discharge from our service. Thank you REMOVE CHEST TUBE SUTURES ON OR AFTER 03/02/24 Home oxygen therapy: N/A Follow up appointments: You should follow up with your PCP, Aparna Jordan APRN, in 1-2 weeks. Our office will schedule an appointment with your Youth Liaison Officer, Neftali Ernandez MD , in 2 weeks. You have an appointment with your Cardiac Surgeon, Dr. Hayder Graham, 4 weeks with a chest x-ray, EKG, and Echo before your appointment. Cardiac Rehabilitation: Karlos Garcia was seen regarding participation in the outpatient Phase 2Cardiac Rehabilitation at [facility]. The patient agrees to a referral to this program. The referral will be sent at discharge and the patient should be contacted by the Program within 1- 2 weeks from discharge. Future Appointments and Orders Future Orders Complete By Expires Echocardiogram Transthoracic [51903 CPT(R)] 03/26/2024 09/25/2024 Process Instructions: Scheduling Instructions: Questions: Where will study be performed?: [facility] Clinics Does the patient have Congenital Heart Disease?: Does patient require sedation?: Sedation rationale: XR Chest PA & Lateral (Generic) [40256 60886 Custom] 03/26/2024 09/25/2024 Process Instructions: Scheduling Instructions: Questions: Portable exam?: Reason for exam and clinical history: s/p avr/cabg Clinical information / jerome questions for radiologist: Stat read required?: Date of injury if applicable: Requested Time: Where will study be performed?: [facility] Radiology Referral to Cardiac Rehab [FDR919 Custom] As directed Process Instructions: If no progress note charted, please enter Clinical details in comments. Scheduling Instructions: Questions: My question or request is: s/p AVR/CABG. Cardiac rehab at [facility]. Referral to Home Health [REF34 Custom] As directed Process Instructions: If no progress note charted, please enter Clinical details in comments. Scheduling Instructions: Comments: Please evaluate Karlos Garcia for admission to Home Health. [address] Phone Number: Date of : 1960 Inpatient DOCUMENTATION FOR VNA SERVICES (INCLUDING THOSE PATIENTS WITH MEDICARE COVERAGE REQUIRING HOME VNA SERVICES AND/OR HOSPICE SERVICES) PATIENT'S LOCATION: Karlos Garcia [address] [place] [phone] Business Professor's Name: self/family In discussion with the attending physician, it is certified that this patient is under their care and that they, or a Nurse Practitioner, or Physician Sap Pp Consultant who is working directly with them, hada [...] for services as follows: HOME HEALTH AGENCY: [facility] [address] [place] [id number] RN orders: Cardiopulmonary assessment, incisional assessment, assess [...] issues please call the Cardiology Office at [phone] FOR MEDICARE ONLY: (please delete this section [...] Signed: NEFTALI MENON PA-C [facility] Section of Cardiac Surgery [facility] [address] FAX [phone] Date: 02/24/2024 CC: Aparna Jordan, MAURI Jordan, Aparna Sherman APRN [address] [place] [address] documented in this encounter Discharge Instructions * [...] Hayder Graham and/or the Cardiac Surgery Physician Sap Pp Consultant Team may be reached at . Antibiotic [...] Please refer to the card with the [place] Heart Association Guidelines for more information. You [...] Dr. Hayder Graham. You may use a [place] Track or treadmill but avoid any pulling [...] friends, go to a movie, go to islam, etc. Heavy activities: No hunting, skiing, jogging, [...] should resume a low fat, low cholesterol, [employer] Heart Association Diet. Driving: No driving until [...] while being managed by your PCP and/or Youth Liaison Officer. For future medication refills, please refer to your PCP and/or Youth Liaison Officer after your discharge from our service. Thank you REMOVE CHEST TUBE SUTURES ON OR AFTER 03/02/24 Home oxygen therapy: N/A Follow up appointments: You should follow up with your PCP, Aparna Jordan APRN, in 1-2 weeks. Our office will schedule an appointment with your Youth Liaison Officer, Neftali Ernandez MD , in 2 weeks. You have an appointment with your Cardiac Surgeon, Dr. Hayder Graham, 4 weeks with a chest x-ray, EKG, and Echo before your appointment. Cardiac Rehabilitation: Karlos Garcia was seen regarding participation in the outpatient Phase 2Cardiac Rehabilitation at [facility]. The patient agrees to a referral [...] 0600 and on the weekends please page [phone]. * Eric Barahona PA - 02/23/2024 9:27 [...] 0600 and on the weekends please page [phone]. * Tiffanie Owens, MATCHBOOK ASSEMBLER - 02/22/2024 2:48 PM EDT Physical Therapy [...] d/c for 10 days. 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 He drives. He works Precautions/Special Considerations: STERNAL [...] LRAD and supervision Time IN / OUT: 2032-2937 Total Time: 30 minutes; TEFx2 Tiffanie Owens Pager: [phone] Physical Therapy Inpatient Rehabilitation Department * Romeo [...] 0600 and on the weekends please page [phone]. * Kelley Hinson MATCHBOOK ASSEMBLER - 02/21/2024 10:15 AM EDT Physical Therapy [...] d/c for 10 days. 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 He drives. He works Precautions/Special Considerations: STERNAL [...] LRAD and supervision Time IN / OUT: 1849-5797 Total Time: 25 minutes; TEF 2 Kelley Hinson PTA Pager: [phone] Physical Therapy Inpatient Rehabilitation Department * Louisa [...] 0600 and on the weekends please page [phone]. * Kelley Hinson PTA - 02/20/2024 3:32 [...] at that time Kelley Hinson PTA Pager: [phone] Physical Therapy Inpatient Rehab Department * Louisa [...] 0600 and on the weekends please page [phone]. * Maris Benavides, PT - 02/19/2024 11:22 [...] d/c for 10 days. 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 He drives. He works. Precautions/Special Considerations: STERNAL [...] outlined inthis evaluation. MARIS BENAVIDES, PT Pager: [phone] Physical Therapy Inpatient Rehabilitation Department Time IN / OUT: 3008-6958 Total Time: 38 (eval) minutes; * Antonio [...] 0600 and on the weekends please page [phone]. * Minnie Begum PA - 02/18/2024 8:25 [...] 0600 and on the weekends please page [phone]. * Kim Ha RCP - 02/17/2024 2:25 [...] plan since last visit. Hayder Graham MD [phone] Source Note - Hayder Graham MD - [...] given written informed consent. Hayder Graham MD [phone] * Hayder Graham MD - 02/17/2024 7:00 AM EDT Patient Name: Karlos Garcia Patient Age: 63 y.o. Birthdate: 1960 Admit date: 02/17/2024 Attending Physician: Hayder Graahm MD Mr. Santa is a 63-year-old man [...] given written informed consent. Hayder Graham MD [phone] documented in this encounter Miscellaneous Notes * [...] for follow-up Home Health & Hospice, [address] [place] [address] Cardiac Rehab, [address] [place] [address] Transportation: family or friend will provide Functional status prior to admission: Independent Home Environment: Others in the home: alone. Current Living Arrangements: home/apartment/condo. Accessibility Concerns:a few steps to enter 1 floor home. Current Functional Ability: Assistive Person and Equipment DME used at home: none DME Needed at Discharge: N/A Patient is insured through: Primary Insurance: [employer] Payor: [facility] / Plan: [facility] PPO / Product Type: *No Product [...] pain managed with scheduled Tylenol. Worked with [employer]. Ambulated in the roque multiple times during [...] HOSPITAL Payor: [facility] / Plan: [facility] PPO / Product Type: *No Product type* / Secondary Insurance: N/A Last Physical Therapy Recommendation: home with home health (Str coming to stay for a week or two upon d/c) with to be determined (owns rolling walker, shower seat) Plan for discharge is: Home w/ Services Outpatient Agency/Support Group Needs: Homecare agency Home Health Services: Physical Therapy, Registered Nurse Agency Referrals: [facility] [address] [place] [address] Transportation: family or friend will provide Barriers to discharge: Discharge planning Plan going forward: Service Care Management will continue to follow and assist with discharge planning and coordination of care as indicated. Anticipated Date of Discharge: 02/22/2024 Rhett Bell RN RN/CM - Cellphone: [phone] Pager: [phone] Covering Service RN/CM * Plan of Care [...] Yang RN - 02/19/2024 10:44 AM EDT [facility] CARDIAC REHABILITATION Karlos Garcia was seen today regarding participation in the outpatient Phase [address] [facility]. 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 (Only good for 180 days) Any patient receiving care in [place] must abide by [place] law. The hierarchy [...] (i) The agent with financial power of anodiser or a conservator appointed in accordance with [...] steady place to sleep or slept in [facility] (including now)?: No In the past 12 months has the [employer], gas, oil, or water Student Designed threatened to shut off services in your [...] as: [address] [facility] [address] Physical address: [address] [facility], [address] Social & Family Supports: All names listed [...] none noted Health/Prescription Coverage: Primary Insurance: [facility] Payor: [facility] / Plan: [facility] PPO / Product Type: *No Product type* / Secondary Insurance: N/A ; Prescription Coverage: Yes Preferred Pharmacy: [id number] [address] [place] Status: Patient is a : No Primary Care Provider confirmed: Aparna Jordan, MAURI [phone] Patient/Caregiver Goals of Treatment: dc to home Potential Needs for Transition of Care: home health care Agency Referrals: I have met with the patient to: discuss discharge planning needs. provide the [facility], Office of Care Management letter from the Full Service Supervisor pertaining to rehab referrals. provide a letter describing our affiliations within the [facility] and educate about their right to choose where referrals are sent. provide a list of Home Health Agencies / Durable Medical Equipment vendors which serve their preferred geographic area. provided patient with [facility] Star Quality Rating handout. They have requested referrals to: [facility] [address] [place] [address] Note routed to a Billing Typist who will communicate referrals to facilities and [...] Reina Greene RN CM, BSN, CMGT-BC Ext [phone] * Plan of Care - Binta Trinidad [...] Operative Note Patient Name: Karlos Garcia : [id number] MR#: [id number] Case Date: 02/17/2024 Surgeon: Surgeon(s) and Role: * Hayder Graham MD - Primary * Neftali Menon PA - Physician Sap Pp Consultant Preoperative diagnosis: CAD Postoperative diagnosis: CAD, intraoperative [...] Mediastinal and Left pleural Disposition: [facility] Condition: doing well without problems Attestation: Case Date: 02/17/2024 I performed this procedure without the involvement of a resident. HAYDER GRAHAM MD 02/17/2024 * Op Note - Hayder Graham MD - 02/17/2024 8:20 AM EDT [facility] Operative Note Patient Name: Karlos Garcia : [id number] MR#: [id number] Case Date: 02/17/2024 Surgeon: Surgeons and Role: * Hayder Graham MD - Primary * Neftali Menon PA - Physician Sap Pp Consultant Preoperative diagnosis: CAD Postoperative diagnosis: CAD, intraoperative [...] Mediastinal and Left pleural Disposition: [facility] Procedure Description: The patient was brought [...] Aortic Valve Open W Cardiopulmonary Bypass Homogrf/Stent (13097) Yes 02/17/2024 7:28 AM EDT CAD Cabg, Artery-Vein, Two (58294) Yes 02/17/2024 7:28 AM EDT CAD Cabg, Arterial, Single (41074) Yes 02/17/2024 7:28 AM EDT CAD Endoscopy W/Video-Asst Vein [place], Cabg (84840) Yes 02/17/2024 7:28 AM EDT CAD POCT [...] CHEMISTRY ORDERABLE S [facility] [place] [address] * (ABNORMAL) Basic Metabolic Panel (non-fasting) (02/23/2024 [...] ORDERABLES Performing Organization Address [facility] Co de Phone Number [facility] [place] [address] * Potassium (02/22/2024 4:30 AM EDT) Potassium [...] S Performing Organization Address [facility] Co de Phone Number [facility] [place] [address] * (ABNORMAL) Basic Metabolic Panel (non-fasting) (02/21/2024 [...] MD CHEMISTRY ORDERABLES [facility] [place] [address] * Lactate, whole blood, send to lab ([facility]) (02/21/2024 9:45 AM EDT) Lactate WB 2.0 0.5 - 2.2 mmol/L [facility] Blood 02/21/2024 9:45 AM EDT 02/21/2024 9:52 AM EDT Narrative Resulting Agency Comment Spec In Lab Hayder Graham MD CHEMISTRY ORDERABLE S Performing Organization Address City/[facility]/ZIP Co de Phone Number [facility] [place] [address] * (ABNORMAL) Hepatic Function Panel (02/21/2024 9:45 AM EDT) Pathologist [facility] Protein, Total 5.7(L) 6.1 - [...] MD CHEMISTRY ORDERABLE S Performing Organization Address City/[facility]/ZIP Co de Phone Number [facility] [place] [address] * Lipase (02/21/2024 9:45 AM EDT) Pathologist [facility] Lipase 56 0 - 60 unit/L [facility] Blood 02/21/2024 9:45 AM EDT 02/21/2024 9:52 AM EDT Narrative Resulting Agency Comment Spec In Lab Hayder Graham MD CHEMISTRY ORDERABLE S Performing Organization Address [facility] Co de Phone Number [facility] [place] [address] * Amylase (02/21/2024 9:45 AM EDT) Amylase 69 28 - 100 unit/L [facility] Blood 02/21/2024 9:45 AM EDT 02/21/2024 9:52 AM EDT Narrative Resulting Agency Comment Spec In Lab Hayder Graham MD CHEMISTRY ORDERABLE S Performing Organization Address [facility] de Phone Number [facility] [place] [address] * Potassium (02/21/2024 3:08 AM EDT) Pathologist [facility] Potassium 3.8 3.5 - 5.0 mmol/L [facility] [...] S Performing Organization Address [facility] Co de Phone Number [facility] [place] [address] * XR Chest PA & Lateral (Generic) (02/20/2024 10:19 AM EDT) WORKSTATION ID [id number] RAD Anatomical Region Laterality Modality Chest N/A [...] by: Rogerio Cruz MD, [facility] ??([phone]), at 02/20/2024 1:11 PM Narrative 02/20/2024 1:11 PM EDT EXAMINATION: XR CHEST PA AND LATERAL (GENERIC) CLINICAL HISTORY: s/p AVR/CABGx3 TECHNIQUE: PA and lateral views of the chest COMPARISON: 02/17/2024 FINDINGS: Support devices: Interval removal of Jasper-Kaila catheter, endotracheal tube and mediastinal chest tubes The cardiac silhouette is stable status post median sternotomy, CABG and aortic valve replacement. There are small pleural effusions. No pneumothorax. Procedure Note Rogerio Cruz MD - 02/20/2024 EXAMINATION: XR CHEST PA AND LATERAL (GENERIC) CLINICAL HISTORY: s/p AVR/CABGx3 TECHNIQUE: PA and lateral views of the chest COMPARISON: 02/17/2024 FINDINGS: Support devices: Interval removal of Jasper-Kaila catheter, endotracheal tubeand mediastinal chest tubes The [...] care nurse that requested your imaging first. Hayder Graham MD IMG DX ORDERABLES * Scan, Peripheral Blood (02/20/2024 4:23 AM EDT) Plat estimate Decreased [facility] RBC Morphology Normal [facility] Blood 02/20/2024 4:23 AM EDT 02/20/2024 4:42 AM EDT Narrative Resulting Agency Comment Spec In Lab Minnie FRENCH HEMATOLOGY CECILIO ALEMAN [facility] [place] [address] * (ABNORMAL) Differential, Automated (02/20/2024 4:23 AM EDT) Pathologist [facility] Neutrophil % 81.7 % [facility] Neutrophil Absolute 10.37(H) 1.70 - 6.10 x10(3)/mc L [facility] Lymph % 7.4 % [facility] Lymphocytes Abs 0.9 0.9 - 3.2 x10(3)/mc L [facility] Monocyte % 9.7 % [facility] Monocyte Abs 1.2(H) 0.3 - 0.9 x10(3)/mc L [facility] Eos % 0.1 % [facility] Eosinophils Abs 0.0 0.0 - 0.4 x10(3)/mc L [facility] Basophil % 0.2 % [facility] [...] HEMATOLOGY CECILIO ALEMAN [facility] [place] [address] * (ABNORMAL) Hemogram (02/20/2024 4:23 AM EDT) White Blood Cell 12.7(H) 4.0 - 9.5 x10(3)/[facility] LAB[facility] Red Blood Cell 4.26(L) 4.58 - 5.54 x10(6)/[facility] Hemoglobin 12.3(L) 13.7 - 16.5 g/dL [facility] Hematocrit 37.1(L) 40.5 - 48.5 % [facility] Mean Cell Volume 87.1 82.9 - 93.1 [facility] LABORATORY Mean Cell Hemoglobin 28.9 27.5 - 32.1 pg [facility] Mean Cell Hemoglobin Concentration 33.2 32.0 - 35.7 g/dL [facility] Platelet 88(L) 145 - 357 x10(3)/[facility] LABORATORY RDW Standard Deviation 43.5 36.0 - 45.0 [facility] LABORATORY RDW coefficient of variation 13.7 11.4 - 13.8 % [facility] Mean Platelet Volume 10.2 7.6 - 12.9 [facility] LABORATORY NRBC% auto 0.0 % [facility] NRBC Absolute 0.000 0.000 - 0.000 x10(3)/ L [facility] Blood 02/20/2024 4:23 AM EDT 02/20/2024 4:42 AM EDT Narrative Resulting Agency Comment Spec In Lab Minnie FRENCH HEMATOLOGY CECILIO ALEMAN [facility] [place] [address] * (ABNORMAL) Basic Metabolic Panel (non-fasting) (02/20/2024 [...] MD CHEMISTRY ORDERABLE S Performing Organization Address City/[facility]/ZIP Co de Phone Number [facility] [place] [address] * Potassium (02/19/2024 3:57 AM EDT) Potassium [...] S Performing Organization Address [facility] Co de Phone Number [facility] [place] [address] * POCT Glucose (02/18/2024 8:24 AM EDT) Glucose, POC 157 65 - 199 mg/dL [facility] Comment: Supplemental ranges: <140 mg/dL before meals <180 mg/dL all other times of the day Blood 02/18/2024 8:24 AM EDT 02/18/2024 8:24 AM EDT Hayder Graham MD POINT OF CARE TEST ORDERABLES Performing Organization Address [facility]/ZIP Co de Phone Number [facility] [place] [address] * Scan, Peripheral Blood (02/18/2024 1:40 AM EDT) Plat estimate Decreased [facility] RBC Morphology Normal [facility] Blood 02/18/2024 1:40 AM EDT 02/18/2024 1:56 AM EDT Narrative Resulting Agency Comment Spec In Lab Neftali FRENCH HEMATOLOGY ORDER OLE [facility] [place] [address] * (ABNORMAL) Differential, Automated (02/18/2024 1:40 AM EDT) Neutrophil % 87.1 % [facility] Neutrophil Absolute 15.03(H) 1.70 - 6.10 x10(3)/mc L [facility] Lymph % 3.0 % [facility] Lymphocytes Abs 0.5(L) 0.9 - 3.2 x10(3)/mc L [facility] Monocyte % 9.1 % [facility] LABORATORY Monocyte Abs 1.6(H) 0.3 - 0.9 x10(3)/mc L [facility] Eos % 0.0 % [facility] Eosinophils Abs 0.0 0.0 - 0.4 x10(3)/mc L [facility] Basophil % 0.2 % [facility] [...] Narrative Resulting Agency Comment Spec In Lab Neftail FRENCH HEMATOLOGY ORDER OLE [facility] [place] [address] * (ABNORMAL) Hemogram (02/18/2024 1:40 AM EDT) [...] [facility] NRBC% auto 0.0 % [facility] NRBC Absolute 0.000 0.000 - 0.000 x10(3)/mc L [facility] Blood 02/18/2024 1:40 AM EDT 02/18/2024 1:56 AM EDT Narrative Resulting Agency Comment Spec In Lab Neftali FRENCH HEMATOLOGY ORDER OLE [facility] [place] [address] * (ABNORMAL) Basic Metabolic Panel (non-fasting) (02/18/2024 [...] CHEMISTRY ORDERABLE S [facility] [place] [address] * (ABNORMAL) Troponin (02/18/2024 1:40 AM EDT) [...] value can be found in the [facility] Laboratory Test Catalog Troponin - [facility] Laboratory Test Catalog Reference: Fourth [place] Definition of Myocardial Infarction. Journal of the [place] [employer] 2018;72:7890-5213 Blood 02/18/2024 1:40 AM EDT 02/18/2024 1:56 AM EDT Narrative Resulting Agency Comment Spec In Lab Hayder Graham MD CHEMISTRY ORDERABLE S [facility] [place] [address] * POCT Glucose (02/17/2024 8:13 PM EDT) Glucose, POC 142 65 - 199 mg/dL [facility] Comment: Supplemental ranges: <140 mg/dL before meals <180 mg/dL all other times of the day Blood 02/17/2024 8:13 PM EDT 02/17/2024 8:13 PM EDT Hayder Graham MD POINT OF CARE TEST ORDERABLES Performing Organization Address [facility] Co de Phone Number [facility] [place] [address] * POCT Glucose (02/17/2024 5:42 PM EDT) Glucose, POC 160 65 - 199 mg/dL [facility] Comment: Supplemental ranges: <140 mg/dL before meals <180 mg/dL all other times of the day Blood 02/17/2024 5:42 PM EDT 02/17/2024 5:42 PM EDT Hayder Graham MD POINT OF CARE TEST ORDERABLES Performing Organization Address [facility] Co de Phone Number [facility] [place] [address] * Hemoglobin (02/17/2024 5:42 PM EDT) [facility] Signature Hemoglobin 13.7 13.7 - 16.5 g/dL [facility] Blood 02/17/2024 5:42 PM EDT 02/17/2024 6:10 PM EDT Narrative Resulting Agency Comment Spec In Lab Hayder Graham MD HEMATOLOGY ORDERABL ES Performing Organization Address [facility] Co de Phone Number [facility] [place] [address] * Potassium (02/17/2024 5:42 PM EDT) [facility] [...] CHEMISTRY ORDERABLE S [facility] [place] [address] * (ABNORMAL) BLOOD GAS 2 ARTERIAL (02/17/2024 [...] [facility] FIO2 Art 40 % [facility] PF Ratio Art 195 [facility] Blood 02/17/2024 4:18 PM EDT 02/17/2024 4:18 PM EDT Hayder Graham MD POINT OF CARE TEST ORDERABLES [facility] [place] [address] * XR Chest One View (02/17/2024 1:44 PM EDT) [employer] WORKSTATION ID [id number] DH RAD Anatomical Region Laterality Modality Chest N/A Digital Radiogra phy Impressions 02/17/2024 2:12 PM EDT 1. ??No definite pleural fluid collection or pneumothorax. 2. ??Right IJ Jasper-Kaila catheter tip terminates in a descending branch [...] by: Denzel Hankins MD, [facility] ??([phone]), at 02/17/2024 2:12 PM Narrative 02/17/2024 2:12 PM EDT EXAMINATION: XR CHEST ONE VIEW CLINICAL HISTORY: s/p avr/cabg eval effusions TECHNIQUE: 1 view of the chest COMPARISON: Chest x-ray 01/09/2024, chest CT 02/03/2024 FINDINGS: ET tube tip terminates 5.2 cm above the carlos. Right IJ Jasper-Kaila catheter tip terminates in a descending branch [...] 5.2 cm above the carlos. Right IJ Jasper-Ganzcatheter tip terminates in a descending branch of [...] fluid collection or pneumothorax. 2. Right IJ Jasper-Kaila catheter tip terminates in a descending branch [...] care nurse that requested your imaging first. Hayder [...] [facility] FIO2 Art 100 % [facility] PF Ratio Art 320 [facility] Blood 02/17/2024 1:31 PM EDT 02/17/2024 1:31 PM EDT Hayder Graham MD POINT OF CARE TEST ORDERABLES [facility] [place] [address] * (ABNORMAL) Coox2 (02/17/2024 1:21 PM EDT) [...] OF CARE TEST ORDERABLES Performing Organization Address City/[facility]/ZIP Co de Phone Number [facility] [place] [address] * (ABNORMAL) BLOOD GAS 2 ARTERIAL (02/17/2024 [...] ORDERABLES Performing Organization Address [facility] Co de Phone Number [facility] [place] [address] * (ABNORMAL) Fibrinogen (02/17/2024 12:10 PM EDT) [...] S Performing Organization Address [facility] Co de Phone Number [facility] [place] [address] * (ABNORMAL) Thrombin time (02/17/2024 12:10 PM [...] S Performing Organization Address [facility] Co de Phone Number [facility] [place] [address] * APTT (02/17/2024 12:10 PM EDT) Partial [...] S Performing Organization Address [facility] Co de Phone Number [facility] [place] [address] * (ABNORMAL) Prothrombin Time (02/17/2024 12:10 PM [...] HEMATOLOGY ORDERABLE S [facility] [place] [address] * (ABNORMAL) Hemogram (02/17/2024 12:10 PM EDT) [...] [facility] NRBC% auto 0.0 % [facility] NRBC Absolute 0.000 0.000 - 0.000 x10(3)/mc L [facility] Blood 02/17/2024 12:1 0 PM EDT 02/17/2024 12:19 PM EDT Narrative Resulting Agency Comment Spec In Lab Tara York MD HEMATOLOGY ORDERABLE S [facility] [place] [address] * (ABNORMAL) BLOOD GAS 2 ARTERIAL (02/17/2024 [...] [facility] Comment: Noted by surgical instrument [...] CARE TEST ORDERABLES [facility] [address] [place] [address] * (ABNORMAL) BLOOD GAS 2 ARTERIAL (02/17/2024 [...] [facility] Comment: Noted by surgical instrument [...] ORDERABLES Performing Organization Address [facility] de Phone Number [facility] [place] [address] * (ABNORMAL) Hemoglobin and Hematocrit, blood (02/17/2024 [...] ES Performing Organization Address [facility] de Phone Number [facility] [place] [address] * (ABNORMAL) Platelet count (02/17/2024 11:04 AM EDT) Platelet 106(L) 145 - 357 x10(3)/mc L [facility] Immature Plt % 1.6 0.0 - 7.4 % [facility] Comment: Limitation of the Immature Platelet Fraction (IPF)-May be less reliable when the platelet count is less than 91t905/uL due to statistical imprecision. The IPF value [...] in a decreased state of production. References: [employer] The Clinical Value of the Immature Platelet Fraction (IPF) in Cell Recovery Document Number [id number] 03/2011 [employer] The Role of the Immature Platelet Fraction (IPF) in the Differential Diagnosis of Thrombocytopenia, Document MKT-[id number] V002/15/14 Blood 02/17/2024 11:0 4 AM EDT 02/17/2024 11:12 AM EDT Narrative Resulting Agency Comment Spec In Lab Hayder Graham MD HEMATOLOGY ORDERABL ES Performing Organization Address City/[facility]/ZIP Co de Phone Number [facility] [place] [address] * (ABNORMAL) Fibrinogen (02/17/2024 11:04 AM EDT) [...] MD HEMATOLOGY ORDERABL ES Performing Organization Address City/[facility]/ZIP Co de Phone Number [facility] [place] [address] * (ABNORMAL) BLOOD GAS 2 ARTERIAL (02/17/2024 [...] TEST ORDERABLES [facility] [place] [address] * (ABNORMAL) BLOOD GAS 2 ARTERIAL (02/17/2024 [...] OF CARE TEST ORDERABLES Performing Organization Address City/State/[facility] Co de Phone Number [facility] [place] [address] * Surgical Pathology Report (02/17/2024 10:01 AM EDT) Final Diagnosis [id number] ? Location: [facility]; [facility]; The signing pathologist has (i) examined the relevant preparation(s) for the specimen(s) and (ii) rendered or confirmed the diagnosis(es). . ?Surgical Pathology DIAGNOSIS Aortic valve leaflets, excision: Valve leaflets with myxoid degeneration, nodular fibrosis and dystrophic calcifications. Electronically signed by: ?Lindsay FERNANDEZ, Livier Gonzalez Verified: ??02/24/2024 13:49 ??Pathologist Performed at: ??-[facility] Dept. of Pathology, [place] [address] Full Service Supervisor: Jbo Brewer MD, FCAP, ??CLIA Certificate: [id number] SPECIMEN(S) SUBMITTED A - Aortic Valve Leaflets, [...] Sections Processing Blocks submitted for decalcification: A1. Inside Sales Agent sections in 1 cassette labeled A1. ??ajw 02/24/2024 1:49 PM EDT [facility] AORTIC STRUCTURE / Unknown 02/17/2024 10:01 AM EDT 02/17/2024 10:01 AM EDT Hayder Graham MD PATHOLOGY/[place] [address] * Specimen to Pathology (02/17/2024 10:01 AM EDT) AP Specimen 02/17/2024 10:0 1 AM EDT 02/17/2024 10:01 AM EDT Narrative [facility] - 02/17/2024 10:01 AM EDT Specimen requisition ordered. ??Separate Pathology report to follow Hayder Graham MD PATHOLOGY/CYTOLOGY ORDERABLES [facility] [place] [address] * (ABNORMAL) BLOOD GAS 2 ARTERIAL (02/17/2024 [...] CARE TEST ORDERABLES [facility] [place] [address] * (ABNORMAL) BLOOD GAS 2 VENOUS (02/17/2024 9:34 AM EDT) pH, Venous 7.22(Criti marquez) 7.32 - 7.42 [facility] Comment:Noted by surgical instrument mechanic. PCO2, Venous 43 41 - 51 mmHg [facility] Comment:Noted by surgical instrument mechanic. PO2, Venous 57(H) 25 - 40 mmHg [facility] Comment:Noted by surgical instrument mechanic. Bicarbonate, Venous 17.1 mmol/L [facility] Comment:Noted by surgical instrument mechanic. Base Excess, Venous -10.6 mmol/L [facility] Comment:Noted by surgical instrument mechanic. Hgb Blood Gas 11.2(L) 13.7 - 16.5 g/dL [facility] Comment:Noted by surgical instrument mechanic. Oxyhemoglobin, Venous 86.5 % [facility] Comment:Noted by surgical instrument mechanic. Carboxyhemoglob in, Venous 0.3 % [facility] Comment: Noted by surgical instrument mechanic. Nonsmokers: 0.5-1.5% COHB Smokers: Variable, but usually less than 10% Toxic: 20-30% COHB Lethal: Greater than 60% COHB Methemoglobin, Venous 0.0 <=1.5 % [facility] Comment:Noted by surgical instrument mechanic. Na Whole Blood 156(H) 135 - 145 mmol/L [facility] Comment:Noted by surgical instrument mechanic. K Whole Blood 5.5(H) 3.5 - 5.0 mmol/L [facility] Comment: Noted by surgical instrument mechanic. Please note: Patients with WBC >100,000 may have falsely elevated Potassium levels. Contact the Clinical Chemistry Laboratory if there are any questions. ICa Whole Blood 1.03(L) 1.15 - 1.33 mmol/L [facility] Comment: Noted by surgical instrument mechanic. Note: ??Total bilirubin higher than 20 mg/dL may lead to falsely low ionized calcium. CL Whole Blood 100 98 - 107 mmol/L [facility] Comment:Noted by surgical instrument mechanic. Gluc Whole Bld 132 65 - 199 mg/dL [facility] Comment: Noted by surgical instrument mechanic. Diabetes: >=200 mg/dL plus symptoms Lactate WB 1.0 0.5 - 2.2 mmol/L [facility] Comment:Noted by surgical instrument mechanic. Blood Gas Source Venous [facility] Blood 02/17/2024 9:34 AM EDT 02/17/2024 9:34 AM EDT Hayder Graham MD POINT OF CARE TEST ORDERABLES [facility] [place] [address] * (ABNORMAL) BLOOD GAS 2 ARTERIAL (02/17/2024 [...] OF CARE TEST ORDERABLES Performing Organization Address City/[facility]/ZIP Co de Phone Number [facility] [place] [address] * POCT Glucose (02/17/2024 6:38 AM EDT) Glucose, POC 98 65 - 199 mg/dL [facility] Comment: Supplemental ranges: <140 mg/dL before meals <180 mg/dL all other times of the day Blood 02/17/2024 6:38 AM EDT 02/17/2024 6:38 AM EDT Hayder Graham MD POINT OF CARE TEST ORDERABLES Performing Organization Address [facility] Co de Phone Number [facility] [place] [address] * Transesophageal Echo/OR (02/17/2024 6:33 AM EDT) [...] Reilly Vincent RN)1708 (Given - Provider: Ingrid Mejnivar RN) 0000 (Not Given - Provider: Polo [...] Mishel Merirll, COLBY) 0836 (Given - Provider: Jazyln Maldonado, COLBY) brimonidine (Alphagan) 0.2 % ophthalmic [...] 0822 (New Bag - Provider: Reilly Vincent, COBLY)1000 (Stopped - Provider: Ingrid Menjivar, COLBY)1001 (New [...] Reilly Vincent, COLBY)1409 (Given - Provider: Ingrid Menijvar, COLBY)2101 (Given - Provider: Polo Britton RN) [...] Routine documented in this encounter Care Teams Drum Builder Relationship Specialty Start Date End Date Aparna Jordan APRN PCP - General Family Medicine 10/21/23 05/26/24 documented as of this encounter
--- OUTSIDE RECORDS SUMMARY | 2024-10-27 10:36 | XMS_ITS | Encounter Summary ---
[facility] Organization [facility] [place] [address] Care Team Providers Care Lookback Coordinator Name Role Phone Victor M Lafleur MD Primary Care Provider [phone] Encounter Details Date Type Department Care Team (Late st Contact Info) Description 09/26/2023 Abstract Cardiology at [address] [address] Karen Billy, RN Nonrheumatic aortic [...] face documented in this encounter Care Teams Lookback Coordinator Relationship Specialty Start Date End Date Victor M Lafleur MD PCP - General 10/02/13 10/20/23 documented as of this encounter
--- OUTSIDE RECORDS SUMMARY | 2024-10-27 10:36 | XMS_ITS | Encounter Summary ---
Author Organization [facility] [place] [address] Care Team Providers Care Hot Room Attendant Name Role Phone Vanessa Christian Lane DOTSON Primary Care Provider [phone] Encounter Details Date Type Department Care Team (Latest Contact Info) Description 01/09/2024 3:00 PM EDT Laboratory [place] [id number] Nonrheumatic aortic valve stenosis Social History Tobacco Use Types Packs/Day Years Used Date Smoking Tobacco: Former Cigarettes Smokeless Tobacco: Never Comments:Quit 15 + years ago Alcohol Use Standard Drinks/Week Comments Yes 0 (1 standard drink = 0.6 oz pur e alcohol) rare [facility] Inpatient Questions Answer Date Recorded Prevent [...] stenosis TYPE AND SCREEN, SDP (FUTURE SURGERY, [facility] SAME [facility] ONLY) Routine 01/09/2024 2:58 [...] [facility] Recheck Order Order Placed [facility] ABORH Type Recheck Completed [facility] Blood 01/09/2024 2:58 PM EDT 01/09/2024 3:08 PM EDT Narrative Resulting Agency Comment Spec In Lab Zak Farmer MD BLOOD BANK LAB ORDE ASH [facility] [place] [address] * Differential, Automated (01/09/2024 2:58 PM EDT) Neutrophil % 70.5 % [facility] Neutrophil Absolute 4.34 1.70 - 6.10 x10(3)/[facility] LABOR[facility] Lymph % 18.9 % [facility] Lymphocytes Abs 1.2 0.9 - 3.2 x10(3)/[facility]OR[facility]ORY Monocyte % 8.0 % [facility] Monocyte Abs 0.5 0.3 - 0.9 x10(3)/[facility]OR[facility] Eos % 1.6 % [facility] Eosinophils Abs 0.1 0.0 - 0.4 x10(3)/[facility] Basophil % 0.5 % [facility] Baso Absolute 0.0 0.0 - 0.1 x10(3)/[facility] Immature Gran % 0.50 % [facility] [...] HEMATOLOGY ORDERABL ES [facility] [place] [address] * Hemogram (01/09/2024 2:58 PM EDT) [facility] NRBC% auto 0.0 % [facility] NRBC Absolute 0.000 0.000 - 0.000 x10(3)/[facility] Blood 01/09/2024 2:58 PM EDT 01/09/2024 3:03 PM EDT Narrative Resulting Agency Comment Spec In Lab Zak Farmer MD HEMATOLOGY ORDERABL ES [facility] [place] [address] * Basic Metabolic Panel (non-fasting) (01/09/2024 2:58 [...] MD CHEMISTRY ORDERABLE S Performing Organization Address [facility] Co de Phone Number [facility] [place] [address] * Hepatic Function Panel (01/09/2024 2:58 PM [...] MD CHEMISTRY ORDERABLE S Performing Organization Address [facility] Co de Phone Number [facility] [place] [address] * Prothrombin Time (01/09/2024 2:58 PM EDT) [...] MD HEMATOLOGY ORDERABL ES Performing Organization Address City/[facility]/ZIP Co de Phone Number [facility] [place] [address] * Type and Screen Future Surgery, [facility] [...] Farmer MD BLOOD BANK LAB ORDE RABLES [facility] [place] [address] documented in this encounter Visit Diagnoses Diagnosis Nonrheumatic aortic valve stenosis Aortic valve disorders documented in this encounter Care Teams Hot Room Attendant Relationship Specialty Start Date End Date Vanessa Christian APRN PCP - General Family Medicine 1/15/24 8/20/24 documented as of this encounter
--- OUTSIDE RECORDS SUMMARY | 2024-10-27 10:36 | XMS_ITS | Encounter Summary ---
Author Organization [facility] Address [facility] [place] [address] Care Team Providers Care Sales Representative Rural Power Name Role Phone Vanessa Christian MAURI Primary Care Provider [phone] Encounter Details Date Type Department Care Team (Latest Contact Info) Description 01/09/2024 3:02 PM EDT - 01/09/2024 11:59 PM EDT Hospital Encounter XRay at [address] [place] [address] [facility] [place] [address] Nonrheumatic aortic valve stenosis Discharge Disposition: Home [...] documented in this encounter Care Teams Sales Representative [employer] Relationship Specialty Start Date End Date Vanessa Christian APRN PCP - General Family Medicine 10/21/23 05/26/24 documented as of this encounter
--- OUTSIDE RECORDS SUMMARY | 2024-10-27 10:36 | XMS_ITS | Encounter Summary ---
Author Organization [facility] [place] [address] Care Team Providers Care Button Riveter Name Role Phone Vanessa Christian APRN Primary Care Provider [phone] Encounter Details Date Type Department Care Team [...] on filedocumented in this encounter Care Teams Button Riveter Relationship Specialty Start Date End Date Vanessa Christian APRN PCP - General Family Medicine 10/21/23 05/26/24 documented as of this encounter
--- OUTSIDE RECORDS SUMMARY | 2024-10-27 10:36 | XMS_ITS | Encounter Summary ---
Author Organization [facility] [place] [address] Care Team Providers Care Printed Circuit Boards Stripper Etcher Name Role Phone Vanessa Christian Lane DOTSON Primary Care Provider [phone] Encounter Details Date Type Department Care Team (Late st Contact Info) Description 01/09/2024 2:30 PM EDT Clinical Support Same Day at [facility] [place] [id number] Social History Tobacco Use Types Packs/Day Years [...] tube link for a video about [facility]. Instructed to bring the booklet [...] on filedocumented in this encounter Care Teams Printed Circuit Boards Stripper Etcher Relationship Specialty Start Date End Date Vanessa Christian APRN PCP - General Family Medicine 10/21/23 05/26/24 documented as of this encounter
--- OUTSIDE RECORDS SUMMARY | 2024-10-27 10:36 | XMS_ITS | Encounter Summary ---
Author Organization [place] [address] Care Team Providers Care Roller Repairer Name Role Phone Vanessa Christian Lane DOTSON Primary Care Provider [phone] Reason for Referral * Diagnostic Test (Routine) - Closed Specialty Diagnoses / Procedures Referred By Contac t Referred To Contact Radiology Diagnoses Nonrheumatic aortic valve stenosis Procedures CT Chest wo Contrast (Generic) Louisa Cho PA [facility] [place] [address] [facility] [place] [address] Referral ID Status Reason Start Date Expiration Date V isits Requested Visits Authorized [id number] Closed Specialty Service Requested 01/10/2024 07/11/2025 1 1 Reason for Visit * Diagnostic Test (Routine) - Closed Specialty Diagnoses / Procedures Referred By Contac t Referred To Contact Radiology Diagnoses Nonrheumatic aortic valve stenosis Procedures CT Chest wo Contrast (Generic) Louisa Cho PA [facility] [place] [address] [facility] [place] [address] Referral ID Status Reason Start Date Expiration Date V isits Requested Visits Authorized [id number] Closed Specialty Service Requested 01/10/2024 07/11/2025 1 1 Encounter Details Date Type Department Care Team (Latest Contact Info) Description 02/03/2024 7:36 AM EDT - 02/03/2024 8:05 AM EDT Hospital Encounter CT Scan at [facility] [place] [address] Zak Farmer MD [facility] [place] [address] Nonrheumatic aortic valve stenosis Discharge Disposition: Home Social History Tobacco Use Types Packs/Day Years Used Date Smoking Tobacco: Former Cigarettes Smokeless Tobacco: Never Comments:Quit 15 + years ago Alcohol Use Standard Drinks/Week Comments Yes 0 (1 standard drink = 0.6 oz pur e alcohol) rare [facility] Inpatient Questions Answer Date Recorded [...] wo Contrast (Generic) (02/03/2024 7:44 AM EDT) [employer] Signature WORKSTATION ID [id number] RAD Anatomical Region Laterality Modality Chest Computed [...] Rogerio Wright MD, [facility] ([phone]), at 02/03/2024 10:00 AM Narrative 02/03/2024 10:00 [...] by: Rogerio Wright MD, [facility]([phone]), at 02/03/2024 10:00 AM Zak Farmer MD IMG CT ORDERABLES documented in this encounter Visit Diagnoses Diagnosis Nonrheumatic aortic valve stenosis Aortic valve disorders documented in this encounter Care Teams Roller Repairer Relationship Specialty Start Date End Date Vanessa Christian APRN PCP - General Family Medicine 10/21/23 05/26/24 documented as of this encounter
--- OUTSIDE RECORDS SUMMARY | 2024-10-27 10:36 | XMS_ITS | Encounter Summary ---
Author Organization [facility] Address [facility] [place] [address] Care Team Providers Care Community Board Member Name Role Phone Vanessa Christian MAURI Primary Care Provider [phone] Reason for Visit * Consultation (Routine) - Closed Specialty Diagnoses / Procedures Referred By Contac t Referred To Contact Cardiac Surgery Diagnoses Nonrheumatic aortic valve stenosis significant - TAVR ( defers to Card Surg d/t age) Neftali Ernandez MD [facility] [place] [address] Zak Farmer MD [facility] [place] [address] Referral ID Status Reason Start Date Expiration Date V isits Requested Visits Authorized [id number] Closed Consult, Test & Treat 10/21/2023 10/20/2024 1 1 Encounter Details Date Type Department Care Team (Late st Contact Info) Description 01/09/2024 1:40 PM EDT Office Visit [place] [address] Zak Farmer MD [facility] [place] [address] Nonrheumatic aortic valve stenosis Social [...] office. Best personal regards, Zak Farmer MD [phone] In aggregate 55 minutes were spent evaluating [...] questions please contact the health customer care coordinator that requested your imaging first. [...] have questions please contactthe health customer care coordinator that requested your imaging first. [...] CHEMISTRY ORDERABLE S [facility] [place] [address] * Hepatic Function Panel (01/09/2024 2:58 PM [...] ORDERABLE S Performing Organization Address [facility] Co de Phone Number [facility] [place] [address] * Prothrombin Time (01/09/2024 2:58 PM EDT) [...] ORDERABL ES Performing Organization Address [facility] Co de Phone Number [facility] [place] [address] * Type and Screen Future Surgery, [facility] [place] (01/09/2024 2:58 PM EDT) ABORH Type O NEGATIVE [facility] Patient BB History Not Found [facility] Expires at [id number] on: 02-20-2024 [facility] Ab Screen Interp Negative [facility] Blood 01/09/2024 2:58 PM EDT 01/09/2024 2:58 PM EDT Narrative Resulting Agency Comment Spec In Lab Zak Farmer MD BLOOD B[facility] LAB [facility]DE [facility] Performing Organization Address City/State/[facility] Co de Phone Number [facility] [place] [address] documented in this encounter Visit Diagnoses Diagnosis Nonrheumatic aortic valve stenosis Aortic valve disorders Nonrheumatic aortic valve stenosis Aortic valve disorders documented in this encounter Care Teams Community Board Member Relationship Specialty Start Date End Date Vanessa Christian, POLYMERIZATION OVEN TENDER PCP - General Family Medicine 10/21/23 05/26/24 documented as of this encounter
--- OUTSIDE RECORDS SUMMARY | 2024-10-27 10:36 | XMS_ITS | Encounter Summary ---
Author Organization [facility] [place] [address] Care Team Providers Care Rubber Production Machine Operator Name Role Phone Vanessa Christian APRN Primary Care Provider [phone] Encounter Details Date Type Department Care Team [...] on filedocumented in this encounter Care Teams Rubber Production Machine Operator Relationship Specialty Start Date End Date Vanessa Christian APRN PCP - General Family Medicine 10/21/23 05/26/24 documented as of this encounter
--- OUTSIDE RECORDS SUMMARY | 2024-10-27 10:36 | XMS_ITS | Encounter Summary ---
Author Organization [facility] Address [facility] [place] [address] Care Team Providers Care Surveyor Rod Helper Name Role Phone Vanessa Christian MAURI Primary Care Provider [phone] Encounter Details Date Type Department Care Team (Late st Contact Info) Description 02/14/2024 Orders [place] [id number] Zak Farmer MD [facility] [address] C[place]IOTH[place]ACIC [place] [address] Coronary artery disease, unspecified vessel or lesion type, unspecified whether angina present, unspecified whether tribal or transplanted heart (Primary Dx) Social History [...] (Bezet) 401 ms MUSE SYSTEM Calculated P Lenore -12 degrees MUSE SYSTEM Calculated R Lenore 24 degrees MUSE SYSTEM Calculated T Lenore 74 degrees MUSE SYSTEM INTERPRETATION Sinus bradycardia T wave abnormality, consider anterior ischemia Abnormal ECG When compared with ECG of 17-FEB-2024 13:24, [place] interval has decreased T wave inversion now evident in Anterior leads Confirmed by Paul Guzman ([id number]) on 03/15/2024 8:36:23 AM MUSE SYSTEM 03/12/2024 2:35 PM EDT 03/15/2024 8:36 AM EDT Zak Farmer MD ECG ORDERABLES MUSE SYSTEM * XR Chest PA & Lateral (Generic) (03/12/2024 1:42 PM EDT) Pathologist [facility] WORKSTATION ID [id number] [facility] Anatomical Region Laterality Modality Chest N/A Digital [...] who have questions please contact the health eye care professional that requested your imaging first. ? 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 Zak Farmer MD IMG DX ORDERABLES documented in this encounter Visit Diagnoses Diagnosis Coronary artery disease, unspecified vessel or lesion type, unspecified whether angina present, unspecified whether tribal or transplanted heart- Primary Coronary artery disease, unspecified vessel or lesion type, unspecified whether angina present, unspecified whether tribal or transplanted heart documented in this encounter Care Teams Surveyor Rod Helper Relationship Specialty Start Date End Date Vanessa Christian APRN PCP - General Family Medicine 10/21/23 05/26/24 documented as of this encounter
--- OUTSIDE RECORDS SUMMARY | 2024-10-27 10:36 | XMS_ITS | Encounter Summary ---
Author Organization [facility] [place] [address] Care Team Providers Care Private Branch Exchange Installer Name Role Phone Vanessa Christian APRN Primary Care Provider [phone] Encounter Details Date Type Department Care Team [...] filedocumented in this encounter Care Teams Private Branch Exchange Installer Relationship Specialty Start Date End Date Vanessa Christian APRN PCP - General Family Medicine 10/21/23 05/26/24 documented as of this encounter
--- OUTSIDE RECORDS SUMMARY | 2024-10-27 10:36 | XMS_ITS | Encounter Summary ---
Author Organization [facility] [place] [address] Care Team Providers Care Seam Steamer Name Role Phone Vanessa Christian APRN Primary Care Provider [phone] Encounter Details Date Type Department Care Team (Late st Contact Info) Description 01/10/2024 Orders [place] [id number] Lawson Napoles PA [facility] [place] [address] Screening for cardiovascular condition; Aortic valve stenosis, [...] unspecified documented in this encounter Care Teams Seam Steamer Relationship Specialty Start Date End Date Vanessa Christian APRN PCP - General Family Medicine 10/21/23 05/26/24 documented as of this encounter
[2024-10-29 10:24] VITALS: BP 116/64; PULSE 73
--- OUTSIDE RECORDS SUMMARY | 2024-10-29 10:43 | XMS_ITS | Clinical Summary ---
Author Organization [facility] Address [address] [place] [address] Care Team Providers Care Commutator Undercutter Name Role Phone Filidayna Vanessa Sherman NP Primary Care Provider [phone] Social History Tobacco Use Types Packs/Day Years [...] 75+ series) 2034 Insurance [employer] Care Teams Commutator Undercutter Relationship Specialty Start Date End Date Vanessa Christian, ANTWAN [address] [place] [phone] PCP - General Family Medicine - Primary Care 10/07/23
--- OUTSIDE RECORDS SUMMARY | 2024-10-29 10:44 | XMS_ITS | Referral Summary ---
Author Organization [facility] Address [address] [place] [address] Care Team Providers Care Lung Splitter Name Role Phone Vanessa Christian Lane MONCADA Primary Care Provider [phone] Social History Tobacco Use Types Packs/Day Years Used Date Smoking Tobacco: Never Assessed Sex and Gender Information Value Date Recorded Sex Assigned at Not on file Legal Sex Male 22:02 EST Gender Identity Not on file Sexual Orientation Not on file Plan of Treatment Not on file Insurance R Care Teams Lung Splitter Relationship Specialty Start Date End Date Vanessa Christian, ANTWAN [address] [place] [phone] PCP - General Family Medicine - Primary Care 10/07/23
--- OUTSIDE RECORDS SUMMARY | 2024-10-29 10:44 | XMS_ITS | Encounter Summary ---
[place] [address] Care Team Providers Care Finished Cloth Examiner Name Role Phone Aparna Jordan MAURI Primary Care Provider [phone] Reason for Referral * Diagnostic Test (Routine) - New Request Specialty Diagnoses / Procedures Referred By Contac t Referred To Contact Cardiology Diagnoses S/P AVR Procedures Echocardiogram Transthoracic Neftali Menon PA [facility] [place] [address] [facility] [place] [address] Referral ID Status Reason Start Date Expiration Date Visits Requested Visits Authorized [id number] New Request Specialty Service Requested 02/24/2024 02/23/2025 1 1 * Consultation (Routine) - Closed Specialty Diagnoses / Procedures Referred By Contac t Referred To Contact Cardiology Diagnoses S/P AVR Hayder Graham MD [facility] [place] [address] Cardiac Rehab, [facility] [address] [place] [address] [place] [address] Referral ID Status Reason Start Date Expiration Date V isits Requested Visits Authorized [id number] Closed Consult, Test & Treat 02/24/2024 08/22/2024 36 36 * Home Health Care (Routine) - Closed Specialty Diagnoses / Procedures Referred By Sixto mendoza Referred To Contact Diagnoses S/P AVR Hayder Graham MD [facility] [place] [address] Referral ID Status Reason Start Date Expiration Date V isits Requested Visits Authorized [id number] Closed Consult, Test & Treat 02/24/2024 08/22/2024 [...] MD [facility] [place] [address] [facility] Referral ID Status Reason Start Date Expiration Date Visits Re quested Visits Authorized [id number] 1 1 Encounter Details Date Type Department Care Team (Latest Contact Info) Description 02/17/2024 5:43 AM EDT - 02/24/2024 11:23 AM EDT Hospital Encounter Heart and Vascular Unit Level 4 [place] [address] Hayder Graham MD [facility] [place] [address] S/P AVR (Primary Dx); Aortic valve stenosis, etiology of cardiac valve disease unspecified Discharge Disposition: Home with VNA Social History Tobacco Use Types Packs/Day Years Used Date Smoking Tobacco: Former Cigarettes Smokeless Tobacco: Never Comments:Quit 15 + years ago Alcohol Use Standard Drinks/Week Comments Yes 0 (1 standard drink = 0.6 oz pur e alcohol) rare [facility] Utilities Answer Date Recorded In [...] Patient Age: 63 y.o. Birthdate: 1960 Language: Yoruba Race: White Ethnicity: Not nor Admit Date: 02/17/2024 Discharge Date: 02/24/24 Attending Physician: Hayder Graham MD Follow-up Recommendations for Providers: Please continue routine management of cardiovascular risk factors including blood pressure, lipids,glucose, etc. Please note any changes to medications. Patient to follow up with PCP, Aparna Jordan APRN, in 1-2 weeks. Patient to follow up with Rectification Printer, Neftali Ernandez MD , in 2 weeks. Patient to follow up with Cardiac Surgeon, Dr. Hayder Graham, with a chest x-ray, EKG, and Echo. Inpatient Provider Contact Information: [facility] Section of Cardiac Surgery [facility] [address] FAX [phone] Discharge Diagnoses (Hospital Problems) Primary Diagnoses: /CAD [...] 33.75) performed by Hayder Graham MD at [facility] MAIN OR PRO CABG, ARTERY-VEIN, TWO N/A 02/17/2024 @CABG, TWO VENOUS GRAFTS & ARTERIAL GRAFT (WRVU 7.93) performed by Hayder Graham MD at [facility] MAIN OR PRO ENDOSCOPY W/VIDEO-ASST VEIN HARVEST, CABG Left 02/17/2024 ENDOSCOPIC HARVEST VEIN(S) FOR CABG (WRVU 0.31) performed by Hayder Graham MD at [facility] MAIN OR PRO REPLACEMENT PROSTHETIC AORTIC VALVE OPEN W CARDIOPULMONARY BYPASS HOMOGRF/STENT N/A 02/17/2024 @REPLACE AORTIC VALVE, OPEN, W\CPB, W\PROSTHETIC VALVE (WRVU 41.32) performed by Hayder Graham MD at [facility] MAIN OR Prior To Admission Medications Medications [...] insufficiency. He has glaucoma. He used to [employer] until about 15 years ago. He has undergone prior herniorrhaphy. 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 Major Procedures/Operations: 02/17/24 s/p avr/cabgx3 CABG x 3 JOSE->LAD SVG->dRCA SVG->OM1 EVH from LLE AVR with a 23 mm Inspiris Bioprosthesis Hospital Course: Karlos Garcia was admitted to [facility] on 02/17/2024 via the Same Day Program. [...] Hayder Graham and/or the Cardiac Surgery Physician Steward/Stewardess Third Class Team may be reached at . Antibiotic [...] Dr. Hayder Graham. You may use a [place] Track or treadmill but avoid any pulling [...] friends, go to a movie, go to lutheran, etc. Heavy activities: No hunting, skiing, jogging, [...] while being managed by your PCP and/or Rectification Printer. For future medication refills, please refer to your PCP and/or Rectification Printer after your discharge from our service. Thank you REMOVE CHEST TUBE SUTURES ON OR AFTER 03/02/24 Home oxygen therapy: N/A Follow up appointments: You should follow up with your PCP, Aparna Jordan APRN, in 1-2 weeks. Our office will schedule an appointment with your Rectification Printer, Neftali Ernandez MD , in 2 weeks. You have an appointment with your Cardiac Surgeon, Dr. Hayder Graham, 4 weeks with a chest x-ray, EKG, and Echo before your appointment. Cardiac Rehabilitation: Karlos Garcia was seen regarding participation in the outpatient Phase 2Cardiac Rehabilitation at [facility]. The patient agrees to a referral to this program. The referral will be sent at discharge and the patient should be contacted by the Program within 1- 2 weeks from discharge. Future Appointments and Orders Future Orders Complete By Expires Echocardiogram Transthoracic [55524 CPT(R)] 03/26/2024 09/25/2024 Process Instructions: Scheduling Instructions: Questions: Where will study be performed[place] [facility] Does the patient have Congenital Heart Disease?: Does patient require sedation?: Sedation rationale: XR Chest PA & Lateral (Generic) [55784 93256 Custom] 03/26/2024 09/25/2024 Process Instructions: Scheduling Instructions: Questions: Portable exam?: Reason for exam and clinical history: s/p avr/cabg Clinical information / jerome questions for radiologist: Stat read required?: Date of injury if applicable: Requested Time: Where will study be performed?: [facility] Radiology Referral to Cardiac Rehab [BBA759 Custom] As directed Process Instructions: If no progress note charted, please enter Clinical details in comments. Scheduling Instructions: Questions: My question or request is: s/p AVR/CABG. Cardiac rehab at [facility]. Referral to Home Health [REF34 Custom] As directed Process Instructions: If no progress note charted, please enter Clinical details in comments. Scheduling Instructions: Comments: Please evaluate Karlos Garcia for admission to Home Health. [address] Phone Number: Date of : 1960 Inpatient DOCUMENTATION FOR VNA SERVICES (INCLUDING THOSE PATIENTS WITH MEDICARE COVERAGE REQUIRING HOME VNA SERVICES AND/OR HOSPICE SERVICES) PATIENT'S LOCATION: Karlos Garcia [address] [place] [phone] Pool Lifeguard's Name: self/family In discussion with the attending physician, it is certified that this patient is under their care and that they, or a Nurse Practitioner, or Physician Steward/Stewardess Third Class who is working directly with them, hada [...] services as follows: HOME HEALTH AGENCY: [facility]. [address] [place] [address] RN orders: Cardiopulmonary assessment, incisional assessment, assess [...] issues please call the Cardiology Office at [phone] FOR MEDICARE ONLY: (please delete this section [...] care: As above. Signed: NEFTALI MENON PA-C [facility] Section of Cardiac Surgery [facility] [place] [address] FAX [phone] Date: 02/24/2024 CC: Aparna Jordan, MAURI Jordan, Aparna Sherman APRN [address] [place] [address] documented in this encounter Discharge Instructions * [...] Hayder Graham and/or the Cardiac Surgery Physician Steward/Stewardess Third Class Team may be reached at . Antibiotic [...] Dr. Hayder Graham. You may use a [place] Track or treadmill but avoid any pulling [...] friends, go to a movie, go to lutheran, etc. Heavy activities: No hunting, skiing, jogging, [...] while being managed by your PCP and/or Rectification Printer. For future medication refills, please refer to your PCP and/or Rectification Printer after your discharge from our service. Thank you REMOVE CHEST TUBE SUTURES ON OR AFTER 03/02/24 Home oxygen therapy: N/A Follow up appointments: You should follow up with your PCP, Aparna Jordan APRN, in 1-2 weeks. Our office will schedule an appointment with your Rectification Printer, Neftali Ernandez MD , in 2 weeks. You have an appointment with your Cardiac Surgeon, Dr. Hayder Graham, 4 weeks with a chest x-ray, EKG, and Echo before your appointment. Cardiac Rehabilitation: Karlos Garcia was seen regarding participation in the outpatient Phase 2Cardiac Rehabilitation at [facility]. The patient agrees to a referral [...] 0600 and on the weekends please page [phone]. * Eric Barahona PA - 02/23/2024 9:27 [...] 0600 and on the weekends please page [phone]. * Tiffanie Owens PTA - 02/22/2024 2:48 [...] Pt reports his dtr is coming from [place] to stay upon d/c for 10 days. 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 * Kelley Hinson, ASSISTANT PRESSMAN - 02/21/2024 10:15 AM EDT Physical Therapy [...] Pt reports his dtr is coming from [place] to stay upon d/c for 10 days. 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 * Kelley Hinson PTA - 02/20/2024 3:32 PM EDT 02/20/24 0622 Evaluation & Treatment Document Type contact Total Minutes, Physical Therapy 0 Comment, Session Not Performed Checked in w/ pt this PM for ongoing PT services, pt politely declined, stating he had been dealing w/ nausea all day, made plan to see him tomorrow morning, will f/u at that time Kelley Hinson PTA Pager: [phone] Physical Therapy Inpatient Rehab Department * Louisa [...] 0600 and on the weekends please page [phone]. * Maris Benavides, PT - 02/19/2024 11:22 [...] Pt reports his dtr is coming from [place] to stay upon d/c for 10 days. 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 Precautions/Special Considerations: STERNAL [...] outlined inthis evaluation. MARIS BENAVIDES, PT Pager: [phone] Physical Therapy Inpatient Rehabilitation Department Time IN / OUT: 7091-9762 Total Time: 38 (eval) minutes; * Antonio Allen PA - 02/19/2024 9:16 AM EDT Cardiac Surgery Progress Note Kalros Garcia is a 63 y.o. male with [...] 0600 and on the weekends please page [phone]. * Minnie Begum PA - 02/18/2024 8:25 [...] 0600 and on the weekends please page [phone]. * Kim Ha RCP - 02/17/2024 2:25 [...] plan since last visit. Hayder Graham MD [phone] Source Note - Hayder Graham MD - [...] insufficiency. He has glaucoma. He used to [employer] until about 15 years ago. He has [...] given written informed consent. Hayder Graham MD [phone] * Hayder Graham MD - 02/17/2024 7:00 [...] given written informed consent. Hayder Graham MD [phone] documented in this encounter Miscellaneous Notes * [...] information for follow-up Home Health & Hospice, [address] [place] [address] Cardiac Rehab, [facility] [address] [place] [address] Transportation: family or friend will provide Functional status prior to admission: Independent Home Environment: Others in the home: alone. Current Living Arrangements: home/apartment/condo. Accessibility Concerns:a few steps to enter 1 floor home. Current Functional Ability: Assistive Person and Equipment DME used at home: none DME Needed at Discharge: N/A Patient is insured through: Primary Insurance: [employer] Payor: [facility] / Plan: [facility] PPO / Product Type: *No Product [...] pain managed with scheduled Tylenol. Worked with [employer]. Ambulated in the roque multiple times during [...] anticipated Patient is insured through: Primary Insurance: [employer] Payor: [facility] / Plan: [facility] PPO / Product Type: *No Product type* / Secondary Insurance: N/A Last Physical Therapy Recommendation: home with home health (Str coming to stay for a week or two upon d/c) with to be determined (owns rolling walker, shower seat) Plan for discharge is: Home w/ Services Outpatient Agency/Support Group Needs: Homecare agency Home Health Services: Physical Therapy, Registered Nurse Agency Referrals: [facility] [address] [address] Transportation: family or friend will provide Barriers to discharge: Discharge planning Plan going forward: Service Care Management will continue to follow and assist with discharge planning and coordination of care as indicated. Anticipated Date of Discharge: 02/22/2024 Rhett Bell RN RN/CM - Cellphone: [phone] Pager: [phone] Covering Service RN/CM * Plan of Care [...] the outpatient Phase 2 Cardiac Rehabilitation at [facility]. The patient agrees to a referral [...] care in [place] must abide by [place] law. The hierarchy [...] (i) The agent with financial power of car dispatcher or a conservator appointed in accordance with [...] In the past 12 months has the X-1, gas, oil, or water [place] threatened to shut off services in your [...] [address] [facility] [address] Physical address: [address] [facility], [address] Social & Family Supports: All names listed [...] Information: none noted Health/Prescription Coverage: Primary Insurance: [facility] Payor: [facility] / Plan: [facility] PPO / Product Type: *No Product type* / Secondary Insurance: N/A ; Prescription Coverage: Yes Preferred Pharmacy: [id number] AT [facility] & [address] [address] [place] Status: Patient is a : No Primary Care Provider confirmed: Aparna Jordan, FEATHER CURLING MACHINE OPERATOR [phone] Patient/Caregiver Goals of Treatment: dc to home Potential Needs for Transition of Care: home health care Agency Referrals: I have met with the patient to: discuss discharge planning needs. provide the [facility] Office of Care Management letter from the Book Retailer pertaining to rehab referrals. provide a letter describing our affiliations within the [facility] and educate about their right to choose where referrals are sent. provide a list of Home Health Agencies / Durable Medical Equipment vendors which serve their preferred geographic area. provided patient with [facility] Star Quality Rating handout. They have requested referrals to: [facility] Care Agency [facility]. [address] [place] [address] Note routed to a Supervisor Microbiology Technologists who will communicate referrals to facilities and [...] daughter, Cielo, will be coming in from [place] on 02/18, to stay with him , [...] Reina Greene RN CM, BSN, CMGT- Ext [phone] * Plan of Care - Binta Trinidad [...] Operative Note Patient Name: Karlos Garcia DOB: [id number] MR#: [id number] Case Date: 02/17/2024 Surgeon: Surgeon(s) and Role: * Hayder Graham MD - Primary * Neftali Menon PA - Physician Steward/Stewardess Third Class Preoperative diagnosis: CAD Postoperative diagnosis: CAD, intraoperative [...] Operative Note Patient Name: Karlos Garcia : [id number] MR#: [id number] Case Date: 02/17/2024 Surgeon: Surgeons and Role: * Hayder Graham MD - Primary * Neftali Menon PA - Physician Steward/Stewardess Third Class Preoperative diagnosis: CAD Postoperative diagnosis: CAD, intraoperative [...] Drains: Mediastinal and Left pleural Disposition: [facility] Procedure Description: The patient was [...] Aortic Valve Open W Cardiopulmonary Bypass Homogrf/Stent (12194) Yes 02/17/2024 7:28 AM EDT CAD Cabg, Artery-Vein, Two (38699) Yes 02/17/2024 7:28 AM EDT CAD Cabg, Arterial, Single (69163) Yes 02/17/2024 7:28 AM EDT CAD Endoscopy W/Video-Asst Vein [place], Cabg (97623) Yes 02/17/2024 7:28 AM EDT CAD POCT [...] CHEMISTRY ORDERABLE S [facility] [place] [address] * (ABNORMAL) Basic Metabolic Panel (non-fasting) (02/23/2024 [...] MD CHEMISTRY ORDERABLES [facility] [place] [address] * Potassium (02/22/2024 4:30 AM EDT) [facility] Signature Potassium 3.5 3.5 - 5.0 mmol/L [facility] [...] CHEMISTRY ORDERABLE S [facility] [place] [address] * (ABNORMAL) Basic Metabolic Panel (non-fasting) (02/21/2024 [...] Carpio MD CHEMISTRY ORDERABLES Performing Organization Address City/[facility]/ZIP Co de Phone Number [facility] [place] [address] * Lactate, whole blood, send to lab ([facility]) (02/21/2024 9:45 AM EDT) [facility] Lactate WB 2.0 0.5 - 2.2 mmol/L [facility] Blood 02/21/2024 9:45 AM EDT 02/21/2024 9:52 AM EDT Narrative Resulting Agency Comment Spec In Lab Hayder Graham MD CHEMISTRY ORDERABLE S Performing Organization Address [facility] Co de Phone Number [facility] [place] [address] * (ABNORMAL) Hepatic Function Panel (02/21/2024 9:45 [...] MD CHEMISTRY ORDERABLE S Performing Organization Address City/[facility]/ZIP Co de Phone Number [facility] [place] [address] * Lipase (02/21/2024 9:45 AM EDT) [facility] Lipase 56 0 - 60 unit/L [facility] Blood 02/21/2024 9:45 AM EDT 02/21/2024 9:52 AM EDT Narrative Resulting Agency Comment Spec In Lab Hayder Graham MD CHEMISTRY ORDERABLE S Performing Organization Address [facility] Co de Phone Number [facility] [place] [address] * Amylase (02/21/2024 9:45 AM EDT) Amylase 69 28 - 100 unit/L [facility] Blood 02/21/2024 9:45 AM EDT 02/21/2024 9:52 AM EDT Narrative Resulting Agency Comment Spec In Lab Hayder Graham MD CHEMISTRY ORDERABLE S Performing Organization Address [facility] de Phone Number [facility] [place] [address] * Potassium (02/21/2024 3:08 AM EDT) [facility] Potassium 3.8 3.5 - 5.0 mmol/L [facility] [...] ORDERABLE S Performing Organization Address [facility] Co de Phone Number [facility] [place] [address] * XR Chest PA & Lateral (Generic) (02/20/2024 10:19 AM EDT) WORKSTATION ID [id number] DH RAD Anatomical Region Laterality Modality Chest [...] instructor that requested your imaging first. ? Narrative 02/20/2024 1:11 PM EDT EXAMINATION: XR CHEST PA AND LATERAL (GENERIC) CLINICAL HISTORY: s/p AVR/CABGx3 TECHNIQUE: PA and lateral views of the chest COMPARISON: 02/17/2024 FINDINGS: Support devices: Interval removal of Toston-Kaila catheter, endotracheal tube and mediastinal chest tubes The cardiac silhouette is stable status post median sternotomy, CABG and aortic valve replacement. There are small pleural effusions. No pneumothorax. Procedure Note Rogerio Cruz MD - 02/20/2024 EXAMINATION: XR CHEST PA AND LATERAL (GENERIC) CLINICAL HISTORY: s/p AVR/CABGx3 TECHNIQUE: PA and lateral views of the chest COMPARISON: 02/17/2024 FINDINGS: Support devices: Interval removal of Toston-Kaila catheter, endotracheal tubeand mediastinal chest tubes The [...] education instructor that requested your imaging first. Hayder Graham MD IMG DX ORDERABLES * Scan, Peripheral Blood (02/20/2024 4:23 AM EDT) Pathologist [facility] Plat estimate Decreased [facility] RBC Morphology Normal [facility] Blood 02/20/2024 4:23 AM EDT 02/20/2024 4:42 AM EDT Narrative Resulting Agency Comment Spec In Lab Minnie FRENCH HEMATOLOGY CECILIO ALEMAN [facility] [place] [address] * (ABNORMAL) Differential, Automated (02/20/2024 4:23 AM EDT) [facility] Neutrophil % 81.7 % [facility] Neutrophil Absolute 10.37(H) 1.70 - 6.10 x10(3)/mc L [facility] Lymph % 7.4 % [facility] Lymphocytes Abs 0.9 0.9 - 3.2 x10(3)/mc L [facility] Monocyte % 9.7 % [facility] Monocyte Abs 1.2(H) 0.3 - 0.9 x10(3)/mc L [facility] Eos % 0.1 % [facility] [...] Absolute 0.12(H) 0.00 - 0.04 x10(3)/mc L [facility] Blood 02/20/2024 4:23 AM EDT 02/20/2024 4:42 AM EDT Narrative Resulting Agency Comment Spec In Lab Minnie FRENCH HEMATOLOGY CECILIO ALEMAN [facility] [place] [address] * (ABNORMAL) Hemogram (02/20/2024 4:23 AM EDT) White Blood Cell 12.7(H) 4.0 - 9.5 x10(3)/mc L [facility] Red Blood Cell 4.26(L) 4.58 - 5.54 x10(6)/mc L [facility] Hemoglobin 12.3(L) 13.7 - [...] [facility] NRBC% auto 0.0 % [facility] NRBC Absolute 0.000 0.000 - 0.000 x10(3)/mc L [facility] Blood 02/20/2024 4:23 AM EDT 02/20/2024 4:42 AM EDT Narrative Resulting Agency Comment Spec In Lab Minnie FRENCH HEMATOLOGY CECILIO ALEMAN [facility] [place] [address] * (ABNORMAL) Basic Metabolic Panel [...] ORDERABLE S Performing Organization Address [facility] Co de Phone Number [facility] [place] [address] * Potassium (02/19/2024 3:57 AM EDT) Potassium [...] ORDERABLE S Performing Organization Address [facility] Co de Phone Number [facility] [place] [address] * POCT Glucose (02/18/2024 8:24 AM EDT) Glucose, POC 157 65 - 199 mg/dL [facility] Comment: Supplemental ranges: <140 mg/dL before meals <180 mg/dL all other times of the day Blood 02/18/2024 8:24 AM EDT 02/18/2024 8:24 AM EDT Hayder Graham MD POINT OF CARE TEST ORDERABLES [facility] [place] [address] * Scan, Peripheral Blood (02/18/2024 1:40 AM EDT) Pathologist [facility] Plat estimate Decreased [facility] RBC Morphology Normal [facility] Blood 02/18/2024 1:40 AM EDT 02/18/2024 1:56 AM EDT Narrative Resulting Agency Comment Spec In Lab Neftali FRENCH HEMATOLOGY ORDER OLE Performing Organization Address City/[facility]/ZIP Co de Phone Number [facility] [place] [address] * (ABNORMAL) Differential, Automated (02/18/2024 1:40 AM EDT) [facility] Neutrophil % 87.1 % [facility] Neutrophil Absolute 15.03(H) 1.70 - 6.10 x10(3)/mc L [facility] Lymph % 3.0 % [facility] Lymphocytes Abs 0.5(L) 0.9 - 3.2 x10(3)/mc L [facility] Monocyte % 9.1 % [facility] Monocyte Abs 1.6(H) 0.3 - 0.9 x10(3)/mc L [facility] Eos % 0.0 % [facility] [...] HEMATOLOGY ORDER OLE [facility] [place] [address] * (ABNORMAL) Hemogram (02/18/2024 1:40 AM EDT) White Blood Cell 17.2(H) 4.0 - 9.5 x10(3)/ L [facility] Red Blood Cell 4.71 4.58 - 5.54 x10(6)/ L [facility] Hemoglobin 13.7 [...] HEMATOLOGY ORDER OLE [facility] [place] [address] * (ABNORMAL) Basic Metabolic Panel (non-fasting) (02/18/2024 [...] MD CHEMISTRY ORDERABLE S Performing Organization Address City/[facility]/ZIP Co de Phone Number [facility] [place] [address] * (ABNORMAL) Troponin (02/18/2024 1:40 AM EDT) [...] [facility] Test Catalog Reference: Fourth [place] Definition of Myocardial Infarction. Journal of the [place] College of Cardiology 2018;72:7606-4396 Blood 02/18/2024 1:40 AM EDT 02/18/2024 1:56 AM EDT Narrative Resulting Agency Comment Spec In Lab Hayder Graham MD CHEMISTRY ORDERABLE S [facility] [place] [address] * POCT Glucose (02/17/2024 8:13 PM EDT) Glucose, POC 142 65 - 199 mg/dL [facility] Comment: Supplemental ranges: <140 mg/dL before meals <180 mg/dL all other times of the day Blood 02/17/2024 8:13 PM EDT 02/17/2024 8:13 PM EDT Hayder Graham MD POINT OF CARE TEST ORDERABLES Performing Organization Address [facility] Co de Phone Number [facility] [place] [address] * POCT Glucose (02/17/2024 5:42 PM EDT) Glucose, POC 160 65 - 199 mg/dL [facility] Comment: Supplemental ranges: <140 mg/dL before meals <180 mg/dL all other times of the day Blood 02/17/2024 5:42 PM EDT 02/17/2024 5:42 PM EDT Hayder Graham MD POINT OF CARE TEST ORDERABLES Performing Organization Address [facility]/ZIP Co de Phone Number [facility] [place] [address] * Hemoglobin (02/17/2024 5:42 PM EDT) Hemoglobin 13.7 13.7 - 16.5 g/dL [facility] Blood 02/17/2024 5:42 PM EDT 02/17/2024 6:10 PM EDT Narrative Resulting Agency Comment Spec In Lab Hayder Graham MD HEMATOLOGY ORDERABL ES [facility] [place] [address] * Potassium (02/17/2024 5:42 PM EDT) Potassium [...] City/State/[facility] Co de Phone Number [facility] [place] [address] * (ABNORMAL) BLOOD GAS 2 ARTERIAL (02/17/2024 [...] [facility] FIO2 Art 40 % [facility] PF Ratio Art 195 [facility] Blood 02/17/2024 4:18 PM EDT 02/17/2024 4:18 PM EDT Hayder Graham MD POINT OF CARE TEST ORDERABLES [facility] [place] [address] * XR Chest One View (02/17/2024 1:44 PM EDT) [employer] WORKSTATION ID [id number] DH RAD Anatomical Region Laterality Modality Chest N/A Digital Radiogra phy Impressions 02/17/2024 2:12 PM EDT 1. ??No definite pleural fluid collection or pneumothorax. 2. ??Right IJ Toston-Kaila catheter tip terminates in a descending branch [...] by: Denzel Hankins MD, [facility] ??([phone]), at 02/17/2024 2:12 PM Narrative 02/17/2024 2:12 PM EDT EXAMINATION: XR CHEST ONE VIEW CLINICAL HISTORY: s/p avr/cabg eval effusions TECHNIQUE: 1 view of the chest COMPARISON: Chest x-ray 01/09/2024, chest CT 02/03/2024 FINDINGS: ET tube tip terminates 5.2 cm above the carlos. Right IJ Toston-Kaila catheter tip terminates in a descending branch [...] 5.2 cm above the carlos. Right IJ Toston-Ganzcatheter tip terminates in a descending branch of [...] fluid collection or pneumothorax. 2. Right IJ Toston-Kaila catheter tip terminates in a descending branch [...] education instructor that requested your imaging first. Hayder Graham [...] [facility] FIO2 Art 100 % [facility] PF Ratio Art 320 [facility] Blood 02/17/2024 1:31 PM EDT 02/17/2024 1:31 PM EDT Hayder Graham MD POINT OF CARE TEST ORDERABLES [facility] [place] [address] * (ABNORMAL) Coox2 (02/17/2024 1:21 PM EDT) [...] TEST ORDERABLES [facility] [place] [address] * (ABNORMAL) BLOOD GAS 2 ARTERIAL (02/17/2024 [...] CARE TEST ORDERABLES Performing Organization Address [facility]/ZIP Co de Phone Number [facility] [place] [address] * (ABNORMAL) Fibrinogen (02/17/2024 12:10 PM EDT) [...] MD HEMATOLOGY ORDERABLE S Performing Organization Address City/[facility]/ZIP Co de Phone Number [facility] [place] [address] * (ABNORMAL) Thrombin time (02/17/2024 12:10 PM [...] HEMATOLOGY ORDERABLE S Performing Organization Address [facility] Co de Phone Number [facility] [place] [address] * APTT (02/17/2024 12:10 PM EDT) Partial [...] HEMATOLOGY ORDERABLE S Performing Organization Address [facility] Co de Phone Number [facility] [place] [address] * (ABNORMAL) Prothrombin Time (02/17/2024 12:10 PM [...] HEMATOLOGY ORDERABLE S [facility] [place] [address] * (ABNORMAL) Hemogram (02/17/2024 12:10 PM EDT) [...] HEMATOLOGY ORDERABLE S [facility] [place] [address] * (ABNORMAL) BLOOD GAS 2 ARTERIAL (02/17/2024 [...] [facility] Comment: Noted by fretted instruments inspector. Please note: Patients with WBC [...] CARE TEST ORDERABLES [facility] [place] [address] * (ABNORMAL) BLOOD GAS 2 ARTERIAL (02/17/2024 [...] [facility] Comment: Noted by fretted instruments inspector. Please note: Patients with WBC [...] AM EDT 02/17/2024 11:08 AM EDT Hayder Garham MD POINT OF CARE TEST ORDERABLES Performing Organization Address [facility]/ZIP Co de Phone Number [facility] [place] [address] * (ABNORMAL) Hemoglobin and Hematocrit, blood (02/17/2024 [...] City/[facility]/[place] [address] * (ABNORMAL) Platelet count (02/17/2024 11:04 AM EDT) Platelet 106(L) 145 - 357 x10(3)/mc L [facility] Immature Plt % 1.6 0.0 - 7.4 % [facility] Comment: Limitation of the Immature Platelet Fraction (IPF)-May be less reliable when the platelet count is less than 91k772/uL due to statistical imprecision. The IPF value [...] in a decreased state of production. References: [employer] The Clinical Value of the Immature Platelet Fraction (IPF) in Cell Recovery Document Number [id number] 03/2011 [employer] The Role of the Immature Platelet Fraction (IPF) in the Differential Diagnosis of Thrombocytopenia, Document MKT-[id number] V002/15/14 Blood 02/17/2024 11:0 4 AM EDT 02/17/2024 11:12 AM EDT Narrative Resulting Agency Comment Spec In Lab Hayder Graham MD HEMATOLOGY ORDERABL ES Performing Organization Address City/State/[facility] Co de Phone Number [facility] [place] [address] * (ABNORMAL) Fibrinogen (02/17/2024 11:04 AM EDT) [...] HEMATOLOGY ORDERABL ES [facility] [place] [address] * (ABNORMAL) BLOOD GAS 2 ARTERIAL (02/17/2024 [...] CARE TEST ORDERABLES [facility] [place] [address] * (ABNORMAL) BLOOD GAS 2 ARTERIAL (02/17/2024 [...] CARE TEST ORDERABLES [facility] [place] [address] * Surgical Pathology Report (02/17/2024 10:01 AM EDT) Final Diagnosis [id number] ? Location: [facility]; [facility]; The signing pathologist has (i) examined the relevant preparation(s) for the specimen(s) and (ii) rendered or confirmed the diagnosis(es). . ?Surgical Pathology DIAGNOSIS Aortic valve leaflets, excision: Valve leaflets with myxoid degeneration, nodular fibrosis and dystrophic calcifications. Electronically signed by: ?Livier Montoya MD Verified: ??02/24/2024 13:49 ??Pathologist Performed at: ??-[facility] [place], [place] [address] Book Retailer: Job Brewer MD, FCAP, ??IA Certificate: [id number] SPECIMEN(S) SUBMITTED A - Aortic Valve Leaflets, [...] Sections Processing Blocks submitted for decalcification: A1. Wind Farm Designer sections in 1 cassette labeled A1. ??ajw 02/24/2024 1:49 PM EDT [facility] AORTIC STRUCTURE / Unknown 02/17/2024 10:01 AM EDT 02/17/2024 10:01 AM EDT Hayder Graham MD PATHOLOGY/CYTOLOGY ORDERABLES [facility] [place] [address] * Specimen to Pathology (02/17/2024 10:01 AM EDT) AP Specimen 02/17/2024 10:0 1 AM EDT 02/17/2024 10:01 AM EDT Narrative [facility] - 02/17/2024 10:01 AM EDT Specimen requisition ordered. ??Separate Pathology report to follow Hayder Graham MD PATHOLOGY/CYTOLOGY ORDERABLES Performing Organization Address City/[facility]/ZIP Co de Phone Number [facility] [place] [address] * (ABNORMAL) BLOOD GAS 2 ARTERIAL (02/17/2024 [...] CARE TEST ORDERABLES [facility] [place] [address] * (ABNORMAL) BLOOD GAS 2 VENOUS (02/17/2024 9:34 AM EDT) pH, Venous 7.22(Criti marquez) 7.32 - 7.42 [facility] Comment:Noted by fretted instruments inspector. PCO2, Venous 43 41 - 51 mmHg [facility] Comment:Noted by fretted instruments inspector. PO2, Venous 57(H) 25 - 40 mmHg [facility] Comment:Noted by fretted instruments inspector. Bicarbonate, Venous 17.1 mmol/L [facility] Comment:Noted by fretted instruments inspector. Base Excess, Venous -10.6 mmol/L [facility] Comment:Noted by fretted instruments inspector. Hgb Blood Gas 11.2(L) 13.7 - 16.5 g/dL [facility] Comment:Noted by fretted instruments inspector. Oxyhemoglobin, Venous 86.5 % [facility] Comment:Noted by fretted instruments inspector. Carboxyhemoglob in, Venous 0.3 % [facility] Comment: Noted by fretted instruments inspector. Nonsmokers: 0.5-1.5% COHB Smokers: Variable, but usually less than 10% Toxic: 20-30% COHB Lethal: Greater than 60% COHB Methemoglobin, Venous 0.0 <=1.5 % [facility] Comment:Noted by fretted instruments inspector. Na Whole Blood 156(H) 135 - 145 mmol/L [facility] Comment:Noted by fretted instruments inspector. K Whole Blood 5.5(H) 3.5 - 5.0 mmol/L [facility] Comment: Noted by fretted instruments inspector. Please note: Patients with WBC >100,000 may have falsely elevated Potassium levels. Contact the Clinical Chemistry Laboratory if there are any questions. ICa Whole Blood 1.03(L) 1.15 - 1.33 mmol/L [facility] Comment: Noted by fretted instruments inspector. Note: ??Total bilirubin higher than 20 mg/dL may lead to falsely low ionized calcium. CL Whole Blood 100 98 - 107 mmol/L [facility] Comment:Noted by fretted instruments inspector. Gluc Whole Bld 132 65 - 199 mg/dL [facility] Comment: Noted by fretted instruments inspector. Diabetes: >=200 mg/dL plus symptoms Lactate WB 1.0 0.5 - 2.2 mmol/L [facility] Comment:Noted by fretted instruments inspector. Blood Gas Source Venous [facility] Blood 02/17/2024 9:34 AM EDT 02/17/2024 9:34 AM EDT Hayder Graham MD POINT OF CARE TEST ORDERABLES [facility] [place] [address] * (ABNORMAL) BLOOD GAS 2 ARTERIAL (02/17/2024 [...] CARE TEST ORDERABLES Performing Organization Address [facility] Co de Phone Number [facility] [place] [address] * POCT Glucose (02/17/2024 6:38 AM EDT) Glucose, POC 98 65 - 199 mg/dL [facility] Comment: Supplemental ranges: <140 mg/dL before meals <180 mg/dL all other times of the day Blood 02/17/2024 6:38 AM EDT 02/17/2024 6:38 AM EDT Hayder Graham MD POINT OF CARE TEST ORDERABLES Performing Organization Address [facility] de Phone Number [facility] [place] [address] * Transesophageal Echo/OR (02/17/2024 6:33 AM EDT) [...] complete transesophageal echocardiogram [place] pre-operative and post-operative evaluation of cardiac [...] 6 hours upon arrival to Unit. Give FL if unable to take PO, Routine Given [...] dose on Sat02/17/24 at 1400, Until Discontinued, [place] teeth and / or gums. Scan the CHG vial in the [employer] Q-Care Oral Care Kit from floor stock. Ventilator-associated pneumonia prophylaxis For use in ICU/Critical care locations ONLY. Obtain kit from Floor Stock location. Scan CHG vial in the [employer] Q-Care Oral Care Kit, Routine Given 02/17/2024 [...] restart at 50% of previous rate. Call soda dry house operator if goal not achieved at maximum rate. [...] PHENYLephrine and/or vasopressin ineffective. Call pager # [phone] if initiated. Titrate to keep systolic blood [...] 2.0 L/min/M2. Maximum volume 2 L. Call soda dry house operator for additional fluid orders: pager #[phone]. Rate/Dose Verify 02/18/2024 8:00 AM EDT 1 mL/hr 1 mL/hr Rate/Dose Verify 02/18/2024 6:00 AM EDT 1 mL/hr 1 mL/hr Rate/Dose Verify 02/18/2024 4:00 AM EDT 1 mL/hr 1 mL/hr sodium chloride 0.9% infusion 10-30 mL/hr, Intravenous, DAILY PRN, Starting on Sat02/17/24 at 1307, Until Sat02/18/24 at 0835, Side port TKO rate, per [facility] nursing protocol. Rate/Dose Verify 02/17/2024 [...] Routine documented in this encounter Care Teams Finished Cloth Examiner Relationship Specialty Start Date End Date Aparna Jordan APRN PCP - General Family Medicine 10/21/23 05/26/24 documented as of this encounter
--- OUTSIDE RECORDS SUMMARY | 2024-10-29 10:44 | XMS_ITS | Clinical Summary ---
Author Organization Formerly [facility] Address [facility] [place] [address] Care Team Providers Care Iron Worker Foreman Name Role Phone Vanessa Christian Lane DOTSON Primary Care Provider [phone] Allergies No known active allergies Medications Medication [...] pur e alcohol) rare [facility] Utilities Answer Date Recorded In [...] series) 06/07/2024 Medical Devices Implanted Type Area Dust Box Worker Device Identifier Shelf Expiration Date Model / Serial / Lot Cable,Cut,Edg ,Blnt,Ss,3tpr ([id number]) - [id number] Implanted:Qty : 1 on 02/17/2024 by Zak Farmer MD at [facility] IMPLANTS Midline: Chest [employer] - [id number] 09/02/2028 [id number] / / [id number] Valve Coronary Aortic 23mm Tissue Trnscath Biopros Inspiris ([id number]) (Autoreq) - [id number] Implanted:Qty : 1 on 02/17/2024 by Zak Farmer MD at [facility] IMPLANTS Heart [employer] - TSAI LI 09/15/2027 [id number] / [id number] / Advance Directives * Attempt Cardiopulmonary Resuscitation [...] Status decision made by: Patient Care Teams Iron Worker Foreman Relationship Specialty Start Date End Date Vanessa Christian, IMPLEMENTATION SERVICES ANALYST [address] [place] [address] PCP - General Family Medicine 05/27/24
--- OUTSIDE RECORDS SUMMARY | 2024-10-29 10:44 | XMS_ITS | Encounter Summary ---
Author Organization Replaced By [facility] Address [facility] [place] [address] Care Team Providers Care Wet Primer Powder Blender Name Role Phone Vanessa Christian MAURI Primary Care Provider [phone] Encounter Details Date Type Department Care Team [...] filedocumented in this encounter Care Teams Wet Primer Powder Blender Relationship Specialty Start Date End Date Vanessa Christian APRN PCP - General Family Medicine 10/21/23 05/26/24 documented as of this encounter
--- OUTSIDE RECORDS SUMMARY | 2024-10-29 10:44 | XMS_ITS | Encounter Summary ---
Author Organization [facility] Address [facility] [place] [address] Care Team Providers Care Health Equipment Servicer Name Role Phone Vanessa Christian Lane DOTSON Primary Care Provider [phone] Reason for Visit * Reason Comments Coronary Artery Disease Aortic Stenosis Encounter Details Date Type Department Care Team (Latest Contact Info) Description 05/27/2024 11:00 AM EDT Office Visit Cardiology at [address] [phone] Neftali Ernandez MD [facility] [place] [address] ASCVD (arteriosclerotic cardiovascular disease); Nonrheumatic aortic valve stenosis Social History Tobacco Use Types Packs/Day Years Used Date Smoking Tobacco: Former Cigarettes Smokeless Tobacco: Never Comments:Quit 15 + years ago Alcohol Use Standard Drinks/Week Comments Yes 0 (1 standard drink = 0.6 oz pur e alcohol) rare [facility] Utilities Answer Date Recorded In the past 12 months has e [employer], gas, oil, or water [employer] threatened to shut off services in your [...] disorders documented in this encounter Care Teams Health Equipment Servicer Relationship Specialty Start Date End Date Vanessa Christian, MAURI [address] [place] [address] PCP - General Family Medicine 05/27/24 documented as of this encounter
--- OUTSIDE RECORDS SUMMARY | 2024-10-29 10:44 | XMS_ITS | Encounter Summary ---
Author Organization [facility] Address [facility] [place] [address] Care Team Providers Care Supervisor Sulfuric Acid Plant Name Role Phone Vanessa Christian MAURI Primary Care Provider [phone] Encounter Details Date Type Department Care Team [...] filedocumented in this encounter Care Teams Supervisor Sulfuric Acid Plant Relationship Specialty Start Date End Date Vanessa Christian APRN PCP - General Family Medicine 10/21/23 05/26/24 documented as of this encounter
--- OUTSIDE RECORDS SUMMARY | 2024-10-29 10:44 | XMS_ITS | Encounter Summary ---
Author Organization [facility] Address [facility] [place] [address] Care Team Providers Care Partner Manager Name Role Phone Gino Vanessa Lane DOTSON Primary Care Provider [phone] Encounter Details Date Type Department Care Team (Late st Contact Info) Description 02/24/2024 Orders Only Cardiac Surgery [facility] [place] [phone] Trudi Lester APRN [facility] [place] [address] Social History Tobacco Use Types Packs/Day Years Used Date Smoking Tobacco: Former Cigarettes Smokeless Tobacco: Never Comments:Quit 15 + years ago Alcohol Use Standard Drinks/Week Comments Yes 0 (1 standard drink = 0.6 oz pur e alcohol) rare [facility] Utilities Answer Date Recorded In the past 12 months has e [employer], gas, oil, or water [employer] threatened to shut off services in your [...] on filedocumented in this encounter Care Teams Partner Manager Relationship Specialty Start Date End Date Vanessa Christian APRN PCP - General Family Medicine 10/21/23 05/26/24 documented as of this encounter
--- OUTSIDE RECORDS SUMMARY | 2024-10-29 10:44 | XMS_ITS | Encounter Summary ---
Author Organization [facility] Address [facility] [place] [address] Care Team Providers Care Electrical Intern Name Role Phone Vanessa Christian FIRMWARE ENGINEER Primary Care Provider [phone] Encounter Details Date Type Department Care Team (Late st Contact Info) Description 03/12/2024 2:40 PM EDT Office [place] [phone] Zak Farmer MD [facility] [place] [address] Coronary artery disease, unspecified vessel or lesion type, unspecified whether angina present, unspecified whether bois forte or transplanted heart Social History Tobacco Use Types Packs/Day Years Used Date Smoking Tobacco: Former Cigarettes Smokeless Tobacco: Never Comments:Quit 15 + years ago Alcohol Use Standard Drinks/Week Comments Yes 0 (1 standard drink = 0.6 oz pur e alcohol) rare [facility] Utilities Answer Date Recorded In the past 12 months has e [employer], gas, oil, or water [employer] threatened to shut off services in your [...] 2:40 PM EDT To: MD Vanessa Coles, FIRMWARE ENGINEER Re; Karlos Santa ( 1960) We had [...] office. Best personal regards, Zak Farmer MD [phone] documented in this encounter Plan of Treatment Not on file documented as of this encounter Procedures Procedure Name Priority Date/Time Associated Diagnosis Comments EKG 12-LEAD Routine 03/12/2024 2:35 PM EDT Coronary artery disease, unspecified vessel or lesion type, unspecified whether angina present, unspecified whether bois forte or transplanted heart documented in this encounter Results * EKG 12 Lead (03/12/2024 2:35 PM EDT) Ventricular rate 59 BPM MUSE SYSTEM Atrial Rate 59 BPM MUSE SYSTEM P-R Interval 190 ms MUSE SYSTEM QRS Duration 92 ms MUSE SYSTEM Q-T Interval 406 ms MUSE SYSTEM QTC Calculated (Bezet) 401 ms MUSE SYSTEM Calculated P [place] -12 degrees MUSE SYSTEM Calculated R [place] 24 degrees MUSE SYSTEM Calculated T [place] 74 degrees MUSE SYSTEM INTERPRETATION Sinus bradycardia T wave abnormality, consider anterior ischemia Abnormal ECG When compared with ECG of 17-FEB-2024 13:24, [place] interval has decreased T wave inversion now evident in Anterior leads Confirmed by Paul Guzman ([id number]) on 03/15/2024 8:36:23 AM MUSE SYSTEM 03/12/2024 2:35 PM EDT 03/15/2024 8:36 AM EDT Zak Farmer MD ECG ORDERABLES wiseri SYSTEM documented in this encounter Visit Diagnoses Diagnosis Coronary artery disease, unspecified vessel or lesion type, unspecified whether angina present, unspecified whether bois forte or transplanted heart documented in this encounter Care Teams Electrical Intern Relationship Specialty Start Date End Date Vanessa Christian, MAURI PCP - General Family Medicine 10/21/23 05/26/24 documented as of this encounter
--- OUTSIDE RECORDS SUMMARY | 2024-10-29 10:44 | XMS_ITS | Encounter Summary ---
Author Organization [facility] Address [facility] [place] [address] Care Team Providers Care Track Grinder Operator Name Role Phone Vanessa Christian MAURI Primary Care Provider [phone] Encounter Details Date Type Department Care Team [...] filedocumented in this encounter Care Teams Track Grinder Operator Relationship Specialty Start Date End Date Vanessa Christian APRN [address] [place] [address] PCP - General Family Medicine 05/27/24 documented as of this encounter
--- OUTSIDE RECORDS SUMMARY | 2024-10-29 10:44 | XMS_ITS | Encounter Summary ---
Author Organization Formerly [facility] Address [facility] [place] [address] Care Team Providers Care Electric Razor Mechanic Name Role Phone Vanessa Christian MAURI Primary Care Provider [phone] Encounter Details Date Type Department Care Team (Latest Contact Info) Description 03/12/2024 1:30 PM EDT - 03/12/2024 11:59 PM EDT Hospital Encounter XRay at [address] [place] [address] Coronary artery disease, unspecified vessel or lesion type, unspecified whether angina present, unspecified whether [place] or transplanted heart Discharge Disposition: Home Social History Tobacco Use Types Packs/Day Years Used Date Smoking Tobacco: Former Cigarettes Smokeless Tobacco: Never Comments:Quit 15 + years ago Alcohol Use Standard Drinks/Week Comments Yes 0 (1 standard drink = 0.6 oz pur e alcohol) rare [facility] Utilities Answer Date Recorded In the past 12 months has e [employer], gas, oil, or water [employer] threatened to shut off services in your [...] unspecified whether [place] or transplanted heart documented in this encounter Results * XR Chest PA & Lateral (Generic) (03/12/2024 1:42 PM EDT) WORKSTATION ID [id number] RAD Anatomical Region Laterality Modality Chest N/A [...] questions please contact the health day care home mother that requested your imaging first. ? Electronically signed by: Augie Sanchez MD, [facility] ([phone]), at 03/13/2024 8:28 AM Narrative 03/13/2024 8:28 [...] have questions please contactthe health day care home mother that requested your imaging first. Electronically signed by: Augie Sanchez MD, [facility]([phone]), at 03/13/2024 8:28 AM Zak Farmer MD IMG DX ORDERABLES documented in this encounter Visit Diagnoses Diagnosis Coronary artery disease, unspecified vessel or lesion type, unspecified whether angina present, unspecified whether [place] or transplanted heart documented in this encounter Care Teams Electric Razor Mechanic Relationship Specialty Start Date End Date Vanessa Christian APRN PCP - General Family Medicine 10/21/23 05/26/24 documented as of this encounter
--- OUTSIDE RECORDS SUMMARY | 2024-10-29 10:44 | XMS_ITS | Encounter Summary ---
Author Organization [facility] Address [address] [place] [address] Care Team Providers Care Psychotherapist Name Role Phone Filidayna Vanessa Dayna MONCADA Primary Care Provider [phone] Encounter Details Date Type Department Care Team (Late st Contact Info) Description 10/24/2023 Lab Requisition [facility] Pathology & Laboratory Medicine - [address] [address] Oscar Nichole MD [address] [place] [phone] Factitial dermatitis Social History Tobacco Use Types [...] if applicable. 10/28/2023 11:24 EST [facility] Final Diagnosis A. SKIN OF MU-ISM, LEFT, SHAVE BIOPSY: - Seborrheic keratosis, pigmented. 10/28/2023 11:24 EST [facility] Attestation By the signature below, the attending physician certifies that they have 1) personally conducted a gross and/or microscopic examination of the described specimen(s), and/or personally interpreted the results of laboratory testing of the described specimen(s), and 2) personally rendered or confirmed the above diagnosis. 10/28/2023 11:24 [facility] at [address]4 Microscopic Description The stratum corneum is thickened by compact and basketweave orthokeratosis with formation of horn pseudocysts. The epidermis is acanthotic with formation of broad and anastomosing trabeculae. The trabeculae are composed of basaloid keratinocytes with round uniform nuclei. The keratinocytes have a variable amount of melanin pigment. 10/28/2023 11:24 [facility] Clinical History Pigmented 2 cm patch; clinical diagnosis code: L98.1 10/28/2023 11:24 [facility] Gross Description A. Received in formalin labelled with proper patient identification (initials P, A) and left protestant is a shave biopsy of an irregular [...] A3. Nora Anderson 10/25/2023 8:47 10/28/2023 11:24 [facility] Performing Lab [facility] 10/28/2023 11:24 [facility] Scanned Images 10/28/2023 11:24 [facility] Tissue SPECIMEN FROM SKIN / Unknown 10/24/2023 14:30 EST 10/24/2023 22:04 EST us Oscar Nichole MD PATHOLOGY ORDERABLES Final Resul t [facility] [address] [place] [address] documented in this encounter Visit Diagnoses Diagnosis Factitial dermatitis Dermatitis factitia (artefacta) documented in this encounter Care Teams Psychotherapist Relationship Specialty Start Date End Date Vanessa Christian NP [address] [place] [address] PCP - General Family Medicine - Primary Care 10/07/23 documented as of this encounter
--- OUTSIDE RECORDS SUMMARY | 2024-10-29 10:45 | XMS_ITS | Encounter Summary ---
[place] [address] Care Team Providers Care Polish Maker Name Role Phone Victor M Lafleur MD Primary Care Provider [phone] Reason for Visit * Reason Onset Date Comments Referral 09/20/2023 Encounter Details Date Type Department Care Team (Late st Contact Info) Description 09/20/2023 Telephone Cardiology at [address] [address] Karen Billy, saddle mechanic Social History Tobacco Use Types Packs/Day Years [...] on filedocumented in this encounter Care Teams Polish Maker Relationship Specialty Start Date End Date Victor M Lafleur MD PCP - General 10/02/13 10/20/23 documented as of this encounter
--- OUTSIDE RECORDS SUMMARY | 2024-10-29 10:45 | XMS_ITS | Encounter Summary ---
Author Organization Replaced By [facility] Address [facility] [place] [address] Care Team Providers Care Giver Name Role Phone Vanessa Christian UNCLAIMED PROPERTY OFFICER Primary Care Provider [phone] Reason for Referral * Diagnostic Test (Routine) - Closed Specialty Diagnoses / Procedures Referred By Contac t Referred To Contact Radiology Diagnoses Nonrheumatic aortic valve stenosis Procedures CT Chest wo Contrast (Generic) Louisa Reid PA [facility] [place] [address] [facility] [place] [address] Referral ID Status Reason Start Date Expiration Date V isits Requested Visits Authorized [id number] Closed Specialty Service Requested 01/10/2024 07/11/2025 1 1 Encounter Details Date Type Department Care Team (Late st Contact Info) Description 01/09/2024 [place] [address] Zak Farmer MD [facility] [place] [address] Nonrheumatic aortic valve stenosis Social History Tobacco [...] wo Contrast (Generic) (02/03/2024 7:44 AM EDT) [employer] WORKSTATION ID [id number] RAD Anatomical Region Laterality Modality Chest Computed [...] questions please contact the health critical care registered nurse that requested your imaging first. ? Electronically signed by: Rogerio Wright MD, [facility] ([phone]), at 02/03/2024 10:00 AM Narrative 02/03/2024 10:00 [...] have questions please contactthe health critical care registered nurse that requested your imaging first. Electronically signed by: Rogerio Wright MD, [facility]([phone]), at 02/03/2024 10:00 AM Zak Farmer MD IMG CT ORDERABLES documented in this encounter Visit Diagnoses Diagnosis Nonrheumatic aortic valve stenosis Aortic valve disorders Nonrheumatic aortic valve stenosis Aortic valve disorders documented in this encounter Care Teams Giver Relationship Specialty Start Date End Date Vanessa Christian APRN PCP - General Family Medicine 10/21/23 05/26/24 documented as of this encounter
--- OUTSIDE RECORDS SUMMARY | 2024-10-29 10:45 | XMS_ITS | Encounter Summary ---
Author Organization [facility] [address] Care Team Providers Care Neuropsychology Service Director Name Role Phone Vanessa Christian APRN Primary Care Provider [phone] Encounter Details Date Type Department Care Team (Late st Contact Info) Description 10/21/2023 Abstract Cardiology at [address] [place] [address] Adam Mayes RN Social History [...] on filedocumented in this encounter Care Teams Neuropsychology Service Director Relationship Specialty Start Date End Date Vanessa Christian APRN PCP - General Family Medicine 10/21/23 05/26/24 documented as of this encounter
--- OUTSIDE RECORDS SUMMARY | 2024-10-29 10:45 | XMS_ITS | Encounter Summary ---
Author Organization [facility] [place] [address] Care Team Providers Care Instruments Sales Representative Name Role Phone Vanessa Christian Lane DOTSON Primary Care Provider [phone] Reason for Referral * Diagnostic Test (Routine) - Closed Specialty Diagnoses / Procedures Referred By Contac t Referred To Contact Radiology Diagnoses Nonrheumatic aortic valve stenosis Procedures CT Chest wo Contrast (Generic) Louisa Cho PA [facility] [place] [address] [facility] [place] [address] Referral ID Status Reason Start Date Expiration Date V isits Requested Visits Authorized [id number] Closed Specialty Service Requested 01/10/2024 07/11/2025 1 1 Reason for Visit * Diagnostic Test (Routine) - Closed Specialty Diagnoses / Procedures Referred By Contac t Referred To Contact Radiology Diagnoses Nonrheumatic aortic valve stenosis Procedures CT Chest wo Contrast (Generic) Louisa Coh PA [facility] [place] [address] [facility] [place] [address] Referral ID Status Reason Start Date Expiration Date V isits Requested Visits Authorized [id number] Closed Specialty Service Requested 01/10/2024 07/11/2025 1 1 Encounter Details Date Type Department Care Team (Latest Contact Info) Description 02/03/2024 7:36 AM EDT - 02/03/2024 8:05 AM EDT Hospital Encounter CT [facility] [place] [address] Zak Farmer MD [facility] [place] [address] Nonrheumatic aortic valve stenosis Discharge Disposition: Home [...] wo Contrast (Generic) (02/03/2024 7:44 AM EDT) [employer] Signature WORKSTATION ID [id number] RAD Anatomical Region Laterality Modality Chest Computed [...] have questions please contact the health clinical manager home care that requested your imaging first. ? [...] who have questions please contactthe health clinical manager home care that requested your imaging first. Zak Farmer MD IMG CT ORDERABLES documented in this encounter Visit Diagnoses Diagnosis Nonrheumatic aortic valve stenosis Aortic valve disorders documented in this encounter Care Teams Instruments Sales Representative Relationship Specialty Start Date End Date Vanessa Christian APRN PCP - General Family Medicine 10/21/23 05/26/24 documented as of this encounter
--- OUTSIDE RECORDS SUMMARY | 2024-10-29 10:45 | XMS_ITS | Encounter Summary ---
Author Organization [facility] Address [facility] [place] [address] Care Team Providers Care Equal Opportunity Representative Name Role Phone Vanessa Christian MAURI Primary Care Provider [phone] Encounter Details Date Type Department Care Team (Latest Contact Info) Description 01/09/2024 3:02 PM EDT - 01/09/2024 11:59 PM EDT Hospital Encounter XRay at [address] [place] [address] Zak Farmer MD [facility] [place] [address] Nonrheumatic aortic valve stenosis Discharge Disposition: Home [...] have questions please contact the health family member caretaker that requested your imaging first. ? [...] who have questions please contactthe health family member caretaker that requested your imaging first. Zak Farmer MD IMG DX ORDERABLES documented in this encounter Visit Diagnoses Diagnosis Nonrheumatic aortic valve stenosis Aortic valve disorders documented in this encounter Care Teams Equal Opportunity Representative Relationship Specialty Start Date End Date Vanessa Christian APRN PCP - General Family Medicine 10/21/23 05/26/24 documented as of this encounter
--- OUTSIDE RECORDS SUMMARY | 2024-10-29 10:45 | XMS_ITS | Encounter Summary ---
Author Organization [facility] [place] [address] Care Team Providers Care Fire Control Mechanic Name Role Phone Victor M Lafleur MD Primary Care Provider Encounter Details Date Type Department Care Team (Late st Contact Info) Description 09/26/2023 Abstract Cardiology at [address] [address] Karen Billy, RN Nonrheumatic aortic [...] face documented in this encounter Care Teams Fire Control Mechanic Relationship Specialty Start Date End Date Victor M Lafleur MD PCP - General 10/02/13 10/20/23 documented as of this encounter
--- OUTSIDE RECORDS SUMMARY | 2024-10-29 10:45 | XMS_ITS | Encounter Summary ---
Author Organization [facility] [place] [address] Care Team Providers Care Agricultural Aircraft Pilot Name Role Phone Vanessa Christian APRN Primary Care Provider [phone] Encounter Details Date Type Department Care Team (Late st Contact Info) Description 01/10/2024 Orders [place] [id number] Lawson Napoles PA [facility] [place] [address] Screening for cardiovascular condition; Aortic valve stenosis, [...] unspecified documented in this encounter Care Teams Agricultural Aircraft Pilot Relationship Specialty Start Date End Date Vanessa Christian APRN PCP - General Family Medicine 10/21/23 05/26/24 documented as of this encounter
--- OUTSIDE RECORDS SUMMARY | 2024-10-29 10:45 | XMS_ITS | Encounter Summary ---
Author Organization [facility] [place] [facility] [place] [address] Care Team Providers Care Seo Coordinator Name Role Phone Vanessa Christian APRN Primary Care Provider [phone] Encounter Details Date Type Department Care Team (Late st Contact Info) Description 12/26/2023 Notes Only Cardiology at [address] [place] [address] Neftali Ernandez MD [facility] [place] [place] [address] Social History Tobacco Use Types Packs/Day Years [...] on filedocumented in this encounter Care Teams Seo Coordinator Relationship Specialty Start Date End Date Vanessa Christian APRN PCP - General Family Medicine 10/21/23 05/26/24 documented as of this encounter
--- OUTSIDE RECORDS SUMMARY | 2024-10-29 10:45 | XMS_ITS | Encounter Summary ---
Author Organization [facility] [place] [address] Care Team Providers Care Chief Human Resources Officer Name Role Phone Vanessa Christian Lane DOTSON Primary Care Provider [phone] Encounter Details Date Type Department Care Team (Late st Contact Info) Description 01/09/2024 2:30 PM EDT Clinical Support Same Day at [facility] [place] [address] Social History Tobacco Use Types Packs/Day Years Used Date Smoking Tobacco: Former Cigarettes Smokeless Tobacco: Never Comments:Quit 15 + years ago Alcohol Use Standard Drinks/Week Comments Yes 0 (1 standard drink = 0.6 oz pur e alcohol) rare [facility] Inpatient Questions Answer Date Recorded Prevent [...] you tube link for a video about [facility] cardiac surgery. Instructed to bring the booklet [...] type and screen performed while in the [facility]. Sent to Radiology for chest x-ray. Special medication instructions: None Procedure date: not booked. Darian documented in this encounter Plan of Treatment Not on file documented as of this encounter Visit Diagnoses Not on filedocumented in this encounter Care Teams Chief Human Resources Officer Relationship Specialty Start Date End Date Vanessa Christian APRN PCP - General Family Medicine 10/21/23 05/26/24 documented as of this encounter
--- OUTSIDE RECORDS SUMMARY | 2024-10-29 10:45 | XMS_ITS | Encounter Summary ---
Author Organization [facility] [place] [address] Care Team Providers Care Wall Mirror Department Supervisor Name Role Phone Vanessa Christian APRN Primary Care Provider [phone] Encounter Details Date Type Department Care Team [...] on filedocumented in this encounter Care Teams Wall Mirror Department Supervisor Relationship Specialty Start Date End Date Vanessa Christian APRN PCP - General Family Medicine 10/21/23 05/26/24 documented as of this encounter
--- OUTSIDE RECORDS SUMMARY | 2024-10-29 10:45 | XMS_ITS | Encounter Summary ---
Author Organization [facility] [place] [address] Care Team Providers Care Wedger Machine Name Role Phone Vanessa Christian Lane DOTSON Primary Care Provider [phone] Encounter Details Date Type Department Care Team (Latest Contact Info) Description 01/09/2024 3:00 PM EDT Laboratory [place] [address] Nonrheumatic aortic valve stenosis Social History Tobacco Use Types Packs/Day Years Used Date Smoking Tobacco: Former Cigarettes Smokeless Tobacco: Never Comments:Quit 15 + years ago Alcohol Use Standard Drinks/Week Comments Yes 0 (1 standard drink = 0.6 oz pur e alcohol) rare [facility] Inpatient Questions Answer Date Recorded Prevent Contact [...] AND SCREEN, SDP (FUTURE SURGERY, [facility] SAME DAY PROGRAM ONLY) Routine 01/09/2024 2:58 [...] [facility] Recheck Order Order Placed [facility] Type Recheck Completed [facility] Blood 01/09/2024 2:58 PM EDT 01/09/2024 3:08 PM EDT Narrative Resulting Agency Comment Spec In Lab Zak Farmer MD BLOOD BANK LAB ORDE ASH [facility] [place] [address] * Differential, Automated (01/09/2024 2:58 PM EDT) Neutrophil % 70.5 % [facility] Neutrophil Absolute 4.34 1.70 - 6.10 x10(3)/[facility] Lymph % 18.9 % [facility] Lymphocytes Abs 1.2 0.9 - 3.2 x10(3)/[facility] Monocyte % 8.0 % [facility] Monocyte Abs 0.5 0.3 - 0.9 x10(3)/[facility] Eos % 1.6 % [facility] Eosinophils Abs 0.1 0.0 - 0.4 x10(3)/[facility] Basophil % 0.5 % [facility] Baso Absolute 0.0 0.0 - 0.1 x10(3)/[facility] Immature Gran % 0.50 % [facility] [...] 0.00 - 0.04 x10(3)/[facility] Blood 01/09/2024 2:58 PM EDT 01/09/2024 3:03 PM EDT Narrative Resulting Agency Comment Spec In Lab Zak Farmer MD HEMATOLOGY ORDERABL ES [facility] [place] [address] * Hemogram (01/09/2024 2:58 PM EDT) White Blood Cell 6.2 4.0 - 9.5 x10(3)/[facility] Red Blood Cell 5.53 4.58 - 5.54 x10(6)/[facility] Hemoglobin 16.1 13.7 - 16.5 g/dL [facility] Hematocrit 46.9 40.5 - 48.5 % [facility] Mean Cell Volume 84.8 82.9 - 93.1 fL [facility] Mean Cell Hemoglobin 29.1 27.5 - 32.1 pg [facility] Mean Cell Hemoglobin Concentration 34.3 32.0 - 35.7 g/dL [facility] Platelet 187 145 - 357 x10(3)/[facility] RDW Standard Deviation 39.2 36.0 - 45.0 [facility] RDW coefficient of variation 12.6 11.4 - 13.8 % [facility] Mean Platelet Volume 9.5 7.6 - 12.9 [facility] NRBC% auto 0.0 % [facility] NRBC Absolute 0.000 0.000 - 0.000 x10(3)/[facility] Blood 01/09/2024 2:58 PM EDT 01/09/2024 3:03 PM EDT Narrative Resulting Agency Comment Spec In Lab Zak Farmer MD HEMATOLOGY ORDERABL ES [facility] [place] [address] * Basic Metabolic Panel (non-fasting) (01/09/2024 2:58 [...] MD CHEMISTRY ORDERABLE S Performing Organization Address [facility] Co de Phone Number [facility] [place] [address] * Hepatic Function Panel (01/09/2024 2:58 PM [...] MD CHEMISTRY ORDERABLE S Performing Organization Address [facility] Co de Phone Number [facility] [place] [address] * Prothrombin Time (01/09/2024 2:58 PM EDT) [...] de Phone Number [facility] [place] [address] * Type and Screen Future Surgery, [facility] [...] LAB ORDE RABLES [facility] [place] [address] documented in this encounter Visit Diagnoses Diagnosis Nonrheumatic aortic valve stenosis Aortic valve disorders documented in this encounter Care Teams Wedger Machine Relationship Specialty Start Date End Date Vanessa Christian APRN PCP - General Family Medicine 1/15/24 8/20/24 documented as of this encounter
--- OUTSIDE RECORDS SUMMARY | 2024-10-29 10:45 | XMS_ITS | Encounter Summary ---
Author Organization [facility] [place] [address] Care Team Providers Care Manager Embalmer Funeral Director Name Role Phone Vanessa Christian APRN Primary Care Provider [phone] Encounter Details Date Type Department Care Team (Late st Contact Info) Description 10/21/2023 Abstract Cardiology at [address] [place] [address] Adam Mayes RN Social History [...] filedocumented in this encounter Care Teams Manager Embalmer Funeral Director Relationship Specialty Start Date End Date Vanessa Christian APRN PCP - General Family Medicine 10/21/23 05/26/24 documented as of this encounter
--- OUTSIDE RECORDS SUMMARY | 2024-10-29 10:45 | XMS_ITS | Encounter Summary ---
Author Organization [facility] [place] [address] Care Team Providers Care Information Systems Security Analyst Name Role Phone Vanessa Christian MAURI Primary Care Provider [phone] Reason for Visit * Auth/Cert (Routine) Specialty [...] MD [facility] [place] [address] [facility] Referral ID Status Reason Start Date Expiration Date Visits Re quested Visits Authorized [id number] 1 1 Encounter Details Date Type Department Care Team (Latest Contact Info) Description 02/03/2024 8:06 AM EDT - 02/03/2024 2:54 PM EDT Hospital Encounter [place] [address] Rima Dickinson MD [facility] [place] [address] Screening for cardiovascular condition; Aortic valve stenosis, [...] lbs Follow-up Visits Follow up with your tank terminal gauger in 2-4 weeks Access Site 'Black and Blue' and tenderness is expected during the first week Call if you noted a mass (lump) greater than the size of a ellis Call Office with any Questions and if you have any of the following Clarence Lane M.D Interventional Sports Commentator Perishable Freight Inspector #: [phone] * Attachments The following attachments cannot be sent through Care Everywhere. * CAD (Coronary Artery Disease): General Info (Malay) * Coronary Angiogram: Post-op (Malay) documented in this encounter Medications at Time [...] Pre-Procedure H&P Update: Cardiac Catheterization Karlos Anthony [id number] 1960 Chief Complaint: Aortic stenosis HPI: Mr. [...] is inthe chart Clarence Lane MD Interventional Sports Commentator 02/03/24 11:48 AM documented in this encounter Miscellaneous Notes * Brief Op Note - Clarence Lane MD - 02/03/2024 12:51 PM EDT Preliminary Cardiac Catheterization Procedure Note: Patient Name: Karlos Anthony : [id number] MR#: [id number] Case Date: 02/03/2024 Perishable Freight Inspector: Surgeon(s) and Role: * Saira Lua MD [...] ? Procedure Date: 02/03/2024 ? A #: [id number] ? Primary Physician: Mogadam, Emad ? Case #: [id number] ? File Name: [id number] ? Catheterization Order Number: [id number] ? [facility] ? Final Report [place], [place] ? Patient Name: ? Karlos Anthony ? ID#: ?[id number] ? : ?1960 ? Procedure Date: ? [...] Karlos Anthony Procedure Date: 02/03/2024 A #: [id number] Primary Physician: Saira Lua Case #: [id number] File Name: [id number] Catheterization Order Number: [id number] [facility] [place], [place] Patient Name: Karlos Anthony ID#:[id number] :1960 Procedure Date: February 03, 2024 Case [...] III. The [facility] clinical frailty scale is 3: Managing Well. [...] (Bezet) 372 ms MUSE SYSTEM Calculated P [place] 59 degrees MUSE SYSTEM Calculated R [place] 34 degrees MUSE SYSTEM Calculated T [place] 63 degrees MUSE SYSTEM INTERPRETATION Sinus bradycardia [...] MD) documented in this encounter Care Teams Information Systems Security Analyst Relationship Specialty Start Date End Date Vanessa Christian, MAURI PCP - General Family Medicine 10/21/23 05/26/24 documented as of this encounter
--- OUTSIDE RECORDS SUMMARY | 2024-10-29 10:45 | XMS_ITS | Encounter Summary ---
Author Organization [facility] Address [facility] [place] [address] Care Team Providers Care Tire Adjuster Name Role Phone Vanessa Christian MAURI Primary Care Provider [phone] Reason for Visit * Consultation (Routine) - Closed Specialty Diagnoses / Procedures Referred By Contac t Referred To Contact Cardiac Surgery Diagnoses Nonrheumatic aortic valve stenosis significant - TAVR ( defers to Card Surg d/t age) Neftali Ernandez MD [facility] [place] [place] [address] Zak Farmer MD [facility] [place] [address] Referral ID Status Reason Start Date Expiration Date V isits Requested Visits Authorized [id number] Closed Consult, Test & Treat 10/21/2023 10/20/2024 1 1 Encounter Details Date Type Department Care Team (Late st Contact Info) Description 01/09/2024 1:40 PM EDT Office [place] [address] Zak Farmer MD [facility] [place] [address] Nonrheumatic aortic valve stenosis Social [...] office. Best personal regards, Zak Farmer MD [phone] In aggregate 55 minutes were spent evaluating [...] questions please contact the health resident care technician that requested your imaging first. [...] have questions please contactthe health resident care technician that requested your imaging first. [...] CHEMISTRY ORDERABLE S [facility] [place] [address] * Hepatic Function Panel (01/09/2024 2:58 PM [...] CHEMISTRY ORDERABLE S Performing Organization Address [facility] Co de Phone Number [facility] [place] [address] * Prothrombin Time (01/09/2024 2:58 PM EDT) [...] HEMATOLOGY ORDERABL ES Performing Organization Address [facility] Co de Phone Number [facility] [place] [address] * Type and Screen Future Surgery, [facility] SAME DAY PROGRAM ONLY) (01/09/2024 2:58 PM EDT) ABORH Type O NEGATIVE [facility] Patient BB History Not Found [facility] Expires at 2629 on: 02-20-2024 [facility] Ab Screen Interp Negative [facility] Blood 01/09/2024 2:58 PM EDT 01/09/2024 2:58 PM EDT Narrative Resulting Agency Comment Spec In Lab Zak Farmer MD [facility] Performing Organization Address City/State/[facility] Co de Phone Number [facility] [place] [address] documented in this encounter Visit Diagnoses Diagnosis Nonrheumatic aortic valve stenosis Aortic valve disorders Nonrheumatic aortic valve stenosis Aortic valve disorders documented in this encounter Care Teams Tire Adjuster Relationship Specialty Start Date End Date Vanessa Christian, CERTIFIED DENTAL ASSISTANT PCP - General Family Medicine 10/21/23 05/26/24 documented as of this encounter
--- OUTSIDE RECORDS SUMMARY | 2024-10-29 10:45 | XMS_ITS | Encounter Summary ---
[place] [address] Care Team Providers Care A R Specialist Name Role Phone Vanessa Christian MAURI [...] 5.9) Rima Dickinson MD [facility] [place] [address] [facility] Referral ID Status Reason Start Date Expiration Date Visits Re quested Visits Authorized [id number] 1 1 Encounter Details Date Type Department Care Team (Late st Contact Info) Description 02/03/2024 10:00 AM EDT - 02/03/2024 11:00 AM EDT Surgery [place] [address] Saira Lua MD CARDIAC CATHETERIZATION Social History [...] lbs Follow-up Visits Follow up with your blind slat stapling machine operator in 2-4 weeks Access Site 'Black and Blue' and tenderness is expected during the first week Call if you noted a mass (lump) greater than the size of a ellis Call Office with any Questions and if you have any of the following Clarence Lane M.D Interventional News Content Specialist Sawmilling Operator #: [phone] * Attachments The following attachments cannot be sent through Care Everywhere. * CAD (Coronary Artery Disease): General Info (Gambian) * Coronary Angiogram: Post-op (Gambian) documented in this encounter Medications at Time [...] Lane MD - 02/03/2024 11:48 AM EDT [facility] Interventional Cardiology Adult Pre-Procedure H&P Update: Cardiac Catheterization Karlos Anthony [id number] 1960 Chief Complaint: Aortic stenosis HPI: Mr. [...] is inthe chart Clarence Lane MD Interventional News Content Specialist 02/03/24 11:48 AM documented in this encounter Miscellaneous Notes * Brief Op Note - Clarence Lane MD - 02/03/2024 12:51 PM EDT Preliminary Cardiac Catheterization Procedure Note: Patient Name: Karlos Anthony : [id number] MR#: [id number] Case Date: 02/03/2024 Sawmilling Operator: Surgeon(s) and Role: * Saira Lua [...] ? Procedure Date: 02/03/2024 ? A #: [id number] ? Primary Physician: Mogadam, Emad ? Case #: [id number] ? File Name: [id number] ? Catheterization Order Number: [id number] ? [facility] ? Final Report [place], [place] ? Patient Name: ? Karlos Patenaude ? ID#: ?[id number] ? : ?1960 ? Procedure Date: ? [...] Karlos Anthony Procedure Date: 02/03/2024 A #: [id number] Primary Physician: Saira Lua Case #: [id number] File Name: [id number] Catheterization Order Number: [id number] [facility] FinalReport [place], [place] Patient Name: Karlos Anthony ID#:[id number] :1960 Procedure Date: February 03, 2024 Case [...] was designated as ASA Class III. The [facility] clinical frailty scale is 3: [...] (Bezet) 372 ms MUSE SYSTEM Calculated P [place] 59 degrees MUSE SYSTEM Calculated R [place] 34 degrees MUSE SYSTEM Calculated T [place] 63 degrees MUSE SYSTEM INTERPRETATION Sinus bradycardia [...] MD) documented in this encounter Care Teams A R Specialist Relationship Specialty Start Date End Date Vanessa Christian APRN PCP - General Family Medicine 10/21/23 05/26/24 documented as of this encounter
--- OUTSIDE RECORDS SUMMARY | 2024-10-29 10:45 | XMS_ITS | Encounter Summary ---
Author Organization [facility] Address [facility] [place] [address] Care Team Providers Care Steam Gigger Name Role Phone Vanessa Christian MAURI Primary Care Provider [phone] Encounter Details Date Type Department Care Team (Late st Contact Info) Description 02/14/2024 Orders [place] [phone] Zak Framer MD [facility] [place] [address] Coronary artery disease, unspecified vessel or lesion type, unspecified whether angina present, unspecified whether [place] or transplanted heart (Primary Dx) Social History [...] (Bezet) 401 ms MUSE SYSTEM Calculated P [place] -12 degrees MUSE SYSTEM Calculated R [place] 24 degrees MUSE SYSTEM Calculated T [place] 74 degrees MUSE SYSTEM INTERPRETATION Sinus bradycardia [...] PM EDT) Pathologist [facility] WORKSTATION ID [id number] [facility] Anatomical Region Laterality Modality Chest [...] have questions please contact the health career representative that requested your imaging first. ? Electronically signed by: Augie Sanchez MD, [facility] ([phone]), at 03/13/2024 8:28 AM Narrative 03/13/2024 8:28 AM EDT EXAMINATION: XR CHEST PA AND LATERAL (GENERIC) CLINICAL HISTORY: s/p cabg eval effusions I25.10, Atherosclerotic heart disease of [place] coronary artery without angina pectoris TECHNIQUE: PA [...] eval effusions I25.10, Atherosclerotic heart disease of [place] coronary artery withoutangina pectoris TECHNIQUE: PA and [...] who have questions please contactthe health career representative that requested your imaging first. Electronically signed by: Augie Sanchez MD, [facility]([phone]), at 03/13/2024 8:28 AM Zak Farmer MD IMG DX ORDERABLES documented in this encounter Visit Diagnoses Diagnosis Coronary artery disease, unspecified vessel or lesion type, unspecified whether angina present, unspecified whether [place] or transplanted heart- Primary Coronary artery disease, unspecified vessel or lesion type, unspecified whether angina present, unspecified whether [place] or transplanted heart documented in this encounter Care Teams Steam Gigger Relationship Specialty Start Date End Date Vanessa Christian APRN PCP - General Family Medicine 10/21/23 05/26/24 documented as of this encounter
--- OUTSIDE RECORDS SUMMARY | 2024-10-29 10:45 | XMS_ITS | Encounter Summary ---
Author Organization [facility] Address [facility] Ivana linareseileen [place] [id number] Care Team Providers Care Chief Telephone Operator Name Role Phone Vanessa Christian MAURI Primary Care Provider [phone] Reason for Referral * Consultation (Routine) - Closed Specialty Diagnoses / Procedures Referred By Contac t Referred To Contact Cardiac Surgery Diagnoses Nonrheumatic aortic valve stenosis significant - TAVR ( defers to Card Surg d/t age) Errol Loya MD [facility] [place] [address] Zak Farmer MD [facility] [place] [address] Referral ID Status Reason Start Date Expiration Date V isits Requested Visits Authorized [id number] Closed Consult, Test & Treat 10/21/2023 10/20/2024 1 1 Reason for Visit * Reason Comments Chest Pain Shortness of Breath Aortic Stenosis Encounter Details Date Type Department Care Team (Late st Contact Info) Description 10/21/2023 1:20 PM EST Office Visit Cardiology at [address] [address] Errol Loya MD [facility] [place] [address] Nonrheumatic aortic valve stenosis Social History Tobacco [...] Problem List Diagnosis Aortic stenosis 12/2022 TTE ([facility]): VITA 0.8-0.9 cm2 (MG 28 mmHg, DOI 3.6 m/s, SVI 35 cc/m2). Trace regurgitation. Normal bi-v s/f, no other valve findings Gastroesophageal reflux Nevus of face Right nondenominational Hypertension HLD (hyperlipidemia) MEDICATIONS: Current Outpatient Medications [...] will refer to [facility] at [facility] for further evaluation. Logistics and preliminary review [...] will refer to T at [facility] [place] further [place]. Logistics and preliminary review [...] disorders documented in this encounter Care Teams Chief Telephone Operator Relationship Specialty Start Date End Date Vanessa Christian APRN PCP - General Family Medicine 10/21/23 05/26/24 documented as of this encounter
--- OUTSIDE RECORDS SUMMARY | 2024-10-29 10:45 | XMS_ITS | Encounter Summary ---
Author Organization [facility] [place] [address] Care Team Providers Care Pinking Sewing Machine Operator Name Role Phone Vanessa Christian MAURI Primary Care Provider [phone] Reason for Visit * Auth/Cert (Routine) Specialty [...] (WRVU 7.93) Zak Farmer MD [facility] [place] [address] [facility] Referral ID Status Reason Start Date Expiration Date Visits Re quested Visits Authorized [id number] 1 1 Encounter Details Date Type Department Care Team (Late st Contact Info) Description 02/17/2024 7:35 AM EDT Anesthesia Event Main Operating Room [facility] [place] [phone] Roman York MD [facility] [place] [address] Anesthesia Record Procedure Summary Procedure Name Responsible [...] by Sadiq Woo RN PIV 02/17/24; 0715; vzuu-lit-yjkabf catheter system; 18 gauge; cephalic vein (lateral side of arm), left; distraction, intradermal injection, tolerated well, appears comfortable; 02/24/24; 92802/17/24 0715 by Jeanette Gonzlaez RN 02/24/24 0929 by Sachi Fajardo LNA [...] th e electric, gas, oil, or water [employer] threatened to shut off services in [...] Room / Location: [facility] OR [address] [place] [address] MAIN OR Anesthesia Start: 734 Anesthesia Stop: [...] shown include unfiled device data. Patient Location: [facility] Level of Consciousness: Sedated (Pharmacologic/Intentional) [...] 08/14/2023 ??? 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 Social [...] mg documented in this encounter Care Teams Pinking Sewing Machine Operator Relationship Specialty Start Date End Date Vanessa Christian APRN PCP - General Family Medicine 10/21/23 05/26/24 documented as of this encounter
--- OUTSIDE RECORDS SUMMARY | 2024-10-29 10:45 | XMS_ITS | Encounter Summary ---
[facility] [place] [address] Care Team Providers Care Jboss Developer Name Role Phone Aparna Jordan MAURI Primary Care Provider [phone] Reason for Visit * Auth/Cert (Routine) Specialty [...] MD [facility] [place]ARDIOTHORACIC [place] [address] [facility] Referral ID Status Reason Start Date Expiration Date Visits Re quested Visits Authorized [id number] 1 1 Encounter Details Date Type Department Care Team (Late st Contact Info) Description 02/17/2024 7:30 AM EDT - 02/17/2024 1:26 PM EDT [place] [id number] Hayder Graham MD [facility] CARDIOTHORACIC [place] [address] ENDOSCOPIC HARVEST VEIN(S) FOR CABG (WRVU 0.31) [...] Patient Age: 63 y.o. Birthdate: 1960 Language: Micronesian Race: White Ethnicity: Not nor Admit Date: 02/17/2024 Discharge Date: 02/24/24 Attending Physician: Hayder Graham MD Follow-up Recommendations for Providers: Please continue routine management of cardiovascular risk factors including blood pressure, lipids,glucose, etc. Please note any changes to medications. Patient to follow up with PCP, Aparna Jordan APRN, in 1-2 weeks. Patient to follow up with Strategic Marketing Manager, Neftali Ernandez MD , in 2 weeks. Patient to follow up with Cardiac Surgeon, Dr. Hayder Graham, with a chest x-ray, EKG, and Echo. Inpatient Provider Contact Information: [facility] Section of Cardiac Surgery [facility] [address] FAX [phone] Discharge Diagnoses (Hospital Problems) Primary Diagnoses: /CAD [...] insufficiency. He has glaucoma. He used to bacSpanDeX until about 15 years ago. He has undergone prior herniorrhaphy. 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 Major Procedures/Operations: 02/17/24 s/p avr/cabgx3 CABG x 3 JOSE->LAD SVG->dRCA SVG->OM1 EVH from LLE AVR with a 23 mm Inspiris Bioprosthesis Hospital Course: Karlos Garcia was admitted to [facility] on 02/17/2024 via the Same [...] Hayder Graham and/or the Cardiac Surgery Physician Kennel Manager Dog Track Team may be reached at . Antibiotic [...] Dr. Hayder Graham. You may use a [place] Track or treadmill but avoid any pulling [...] while being managed by your PCP and/or Strategic Marketing Manager. For future medication refills, please refer to your PCP and/or Strategic Marketing Manager after your discharge from our service. Thank you REMOVE CHEST TUBE SUTURES ON OR AFTER 03/02/24 Home oxygen therapy: N/A Follow up appointments: You should follow up with your PCP, Aparna Jordan APRN, in 1-2 weeks. Our office will schedule an appointment with your Strategic Marketing Manager, Neftali Ernandez MD , in 2 weeks. You have an appointment with your Cardiac Surgeon, Dr. Hayder Graham, 4 weeks with a chest x-ray, EKG, and Echo before your appointment. Cardiac Rehabilitation: Karlos Garcia was seen regarding participation in the outpatient Phase 2Cardiac Rehabilitation at [facility]. The patient agrees to a referral to this program. The referral will be sent at discharge and the patient should be contacted by the Program within 1- 2 weeks from discharge. Future Appointments and Orders Future Orders Complete By Expires Echocardiogram Transthoracic [09734 CPT(R)] 03/26/2024 09/25/2024 Process Instructions: Scheduling Instructions: Questions: Where will study be performed?: [facility] Clinics Does the patient have Congenital Heart Disease?: Does patient require sedation?: Sedation rationale: XR Chest PA & Lateral (Generic) [65696 11771 Custom] 03/26/2024 09/25/2024 Process Instructions: Scheduling Instructions: Questions: Portable exam?: Reason for exam and clinical history: s/p avr/cabg Clinical information / jerome questions for radiologist: Stat read required?: Date of injury if applicable: Requested Time: Where will study be performed?: [facility] Radiology Referral to Cardiac Rehab [HCI095 Custom] As directed Process Instructions: If no progress note charted, please enter Clinical details in comments. Scheduling Instructions: Questions: My question or request is: s/p AVR/CABG. Cardiac rehab at [facility]. Referral to Home Health [REF34 Custom] As directed Process Instructions: If no progress note charted, please enter Clinical details in comments. Scheduling Instructions: Comments: Please evaluate Karlos Garcia for admission to Home Health. [address] Phone Number: Date of : 1960 Inpatient DOCUMENTATION FOR VNA SERVICES (INCLUDING THOSE PATIENTS WITH MEDICARE COVERAGE REQUIRING HOME VNA SERVICES AND/OR HOSPICE SERVICES) PATIENT'S LOCATION: Karlos Garcia [address] [employer] [phone] Procedure Writer's Name: self/family In discussion with the attending physician, it is certified that this patient is under their care and that they, or a Nurse Practitioner, or Physician Kennel Manager Dog Track who is working directly with them, hada [...] for services as follows: HOME HEALTH AGENCY: [facility] [address] [place] [address] RN orders: Cardiopulmonary assessment, incisional assessment, assess [...] issues please call the Cardiology Office at [phone] FOR MEDICARE ONLY: (please delete this section [...] [facility] [address] FAX [phone] Date: 02/24/2024 CC: Aparna Jordan, MAURI Jordan, Aparna Sherman APRN [address] [place] [address] documented in this encounter Discharge Instructions * [...] Hayder Graham and/or the Cardiac Surgery Physician Kennel Manager Dog Track Team may be reached at . Antibiotic [...] Dr. Hayder Graham. You may use a [place] Track or treadmill but avoid any pulling [...] while being managed by your PCP and/or Strategic Marketing Manager. For future medication refills, please refer to your PCP and/or Strategic Marketing Manager after your discharge from our service. Thank you REMOVE CHEST TUBE SUTURES ON OR AFTER 03/02/24 Home oxygen therapy: N/A Follow up appointments: You should follow up with your PCP, Aparna Jordan APRN, in 1-2 weeks. Our office will schedule an appointment with your Strategic Marketing Manager, Neftali Ernandez MD , in 2 weeks. You have an appointment with your Cardiac Surgeon, Dr. Hayder Graham, 4 weeks with a chest x-ray, EKG, and Echo before your appointment. Cardiac Rehabilitation: Karlos Garcia was seen regarding participation in the outpatient Phase 2Cardiac Rehabilitation at [facility]. The patient agrees to a referral [...] 0600 and on the weekends please page [phone]. * Eric Barahona PA - 02/23/2024 9:27 [...] 0600 and on the weekends please page [phone]. * Tiffanei Owens, DIE CASTING MACHINE MAINTAINER - 02/22/2024 2:48 PM EDT Physical Therapy [...] Pt reports his dtr is coming from [place] to stay upon d/c for 10 days. 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 He works Precautions/Special Considerations: STERNAL [...] LRAD and supervision Time IN / OUT: 4106-7518 Total Time: 30 minutes; TEFx2 Tiffanie Owens Pager: [phone] Physical Therapy Inpatient Rehabilitation Department * Romeo [...] 0600 and on the weekends please page [phone]. * Kelley Hinson DIE CASTING MACHINE MAINTAINER - 02/21/2024 10:15 AM EDT Physical Therapy [...] Pt reports his dtr is coming from [place] to stay upon d/c for 10 days. 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 He works Precautions/Special Considerations: STERNAL [...] LRAD and supervision Time IN / OUT: 8139-7201 Total Time: 25 minutes; TEF 2 Kelley Hinson PTA Pager: [phone] Physical Therapy Inpatient Rehabilitation Department * Louisa [...] 0600 and on the weekends please page [phone]. * Kelley Hinson PTA - 02/20/2024 3:32 [...] at that time Kelley Hinson PTA Pager: [phone] Physical Therapy Inpatient Rehab Department * Louisa [...] 0600 and on the weekends please page [phone]. * Maris Benavides, PT - 02/19/2024 11:22 [...] Pt reports his dtr is coming from [place] to stay upon d/c for 10 days. 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 Precautions/Special Considerations: STERNAL [...] outlined inthis evaluation. MARIS BENAVIDES, PT Pager: [phone] Physical Therapy Inpatient Rehabilitation Department Time IN / OUT: 4505-7114 Total Time: 38 (eval) minutes; * Antonio [...] 0600 and on the weekends please page [phone]. * Minnie Begum PA - 02/18/2024 8:25 [...] 0600 and on the weekends please page [phone]. * Kim Ha RCP - 02/17/2024 2:25 [...] plan since last visit. Hayder Graham MD [phone] Source Note - Hayder Graham MD - [...] given written informed consent. Hayder Graham MD [phone] * Hayder Graham MD - 02/17/2024 7:00 [...] given written informed consent. Hayder Graham MD [phone] documented in this encounter Miscellaneous Notes * [...] for follow-up Home Health & Hospice, [address] [place] [address] Cardiac Rehab, [address] [place] [address] Transportation: family or friend will provide Functional status prior to admission: Independent Home Environment: Others in the home: alone. Current Living Arrangements: home/apartment/condo. Accessibility Concerns:a few steps to enter 1 floor home. Current Functional Ability: Assistive Person and Equipment DME used at home: none DME Needed at Discharge: N/A Patient is insured through: Primary Insurance: [place] [employer] Payor: [facility] / Plan: [facility] [...] pain managed with scheduled Tylenol. Worked with [employer]. Ambulated in the roque multiple times during [...] anticipated Patient is insured through: Primary Insurance: [facility] Payor: [facility] / Plan: [facility] [...] Services: Physical Therapy, Registered Nurse Agency Referrals: [facility] [address] [place] [phone] Transportation: family or friend will provide Barriers to discharge: Discharge planning Plan going forward: Service Care Management will continue to follow and assist with discharge planning and coordination of care as indicated. Anticipated Date of Discharge: 02/22/2024 Rhett Bell RN RN/CM - Cellphone: [phone] Pager: [phone] Covering Service RN/CM * Plan of Care [...] Yang RN - 02/19/2024 10:44 AM EDT [facility] CARDIAC REHABILITATION Karlos Garcia was seen today regarding participation in the outpatient Phase 2 Cardiac Rehabilitation at [facility]. The patient agrees to a referral [...] receiving care in [place] must abide by [place] law. The hierarchy [...] (i) The agent with financial power of radon inspector or a conservator appointed in accordance [...] to sleep or slept in [facility] (including now)?: No In the past 12 months has the [employer], gas, oil, or water [employer] threatened to shut off services in your [...] as: [address] [facility] [address] Physical address: [address] [facility], [address] Social & Family Supports: All names listed [...] Information: none noted Health/Prescription Coverage: Primary Insurance: [facility] Payor: [facility] / Plan: [facility] PPO / Product Type: *No Product type* / Secondary Insurance: N/A ; Prescription Coverage: Yes Preferred Pharmacy: [id number] [address] [place] Status: Patient is a : No Primary Care Provider confirmed: Aparna Jordan, MAURI [phone] Patient/Caregiver Goals of Treatment: dc to home Potential Needs for Transition of Care: home health care Agency Referrals: I have met with the patient to: discuss discharge planning needs. provide the [facility], Office of Care Management letter from the Riveter pertaining to rehab referrals. provide a letter describing our affiliations within the [facility] and educate about their right to choose where referrals are sent. provide a list of Home Health Agencies / Durable Medical Equipment vendors which serve their preferred geographic area. provided patient with [facility] Star Quality Rating handout. They have requested referrals to: [facility] [address] [place] [address] Note routed to a Pneumatic Tube Repairer who will communicate referrals to facilities [...] daughter, Cielo, will be coming in from [place] on 02/18, to stay with him , [...] Reina Greene RN CM, BSN, CMGT-BC Ext [phone] * Plan of Care - Binta Trinidad [...] Operative Note Patient Name: Karlos Garcia : [id number] MR#: [id number] Case Date: 02/17/2024 Surgeon: Surgeon(s) and Role: * Hayder Graham MD - Primary * Neftali Menon PA - Physician Kennel Manager Dog Track Preoperative diagnosis: CAD Postoperative diagnosis: CAD, intraoperative [...] Mediastinal and Left pleural Disposition: [facility] Condition: doing well without problems Attestation: Case Date: 02/17/2024 I performed this procedure without the involvement of a resident. HAYDER GRAHAM MD 02/17/2024 * Op Note - Hayder Graham MD - 02/17/2024 8:20 AM EDT [facility] Operative Note Patient Name: Karlos Garcia : [id number] MR#: [id number] Case Date: 02/17/2024 Surgeon: Surgeons and Role: * Hayder Graham MD - Primary * Neftali Menon PA - Physician Kennel Manager Dog Track Preoperative diagnosis: CAD Postoperative diagnosis: CAD, intraoperative [...] Mediastinal and Left pleural Disposition: [facility] Procedure Description: The patient was brought [...] Aortic Valve Open W Cardiopulmonary Bypass Homogrf/Stent (47831) Yes 02/17/2024 7:28 AM EDT CAD Cabg, Artery-Vein, Two (91685) Yes 02/17/2024 7:28 AM EDT CAD Cabg, Arterial, Single (77158) Yes 02/17/2024 7:28 AM EDT CAD Endoscopy W/Video-Asst Vein Sully, Cabg (14569) Yes 02/17/2024 7:28 AM EDT CAD POCT [...] ORDERABLE S [facility] [place] [address] * (ABNORMAL) Basic Metabolic Panel (non-fasting) (02/23/2024 [...] Carpio MD CHEMISTRY ORDERABLES Performing Organization Address [facility] Co de Phone Number [facility] [place] [address] * Potassium (02/22/2024 4:30 AM EDT) Potassium [...] CHEMISTRY ORDERABLE S Performing Organization Address [facility] Co de Phone Number [facility] [place] [address] * (ABNORMAL) Basic Metabolic Panel (non-fasting) (02/21/2024 [...] CHEMISTRY ORDERABLES [facility] [place] [address] * Lactate, whole blood, send to lab ([facility]) (02/21/2024 9:45 AM EDT) Lactate WB 2.0 0.5 - 2.2 mmol/L [facility] Blood 02/21/2024 9:45 AM EDT 02/21/2024 9:52 AM EDT Narrative Resulting Agency Comment Spec In Lab Hayder Graham MD CHEMISTRY ORDERABLE S Performing Organization Address City/[facility]/ZIP Co de Phone Number [facility] [place] [address] * (ABNORMAL) Hepatic Function Panel (02/21/2024 9:45 [...] Phone Number [facility] [place] [address] * Lipase (02/21/2024 9:45 AM EDT) Pathologist [facility] Lipase 56 0 - 60 unit/L [facility] Blood 02/21/2024 9:45 AM EDT 02/21/2024 9:52 AM EDT Narrative Resulting Agency Comment Spec In Lab Hayder Graham MD CHEMISTRY ORDERABLE S Performing Organization Address [facility] Co de Phone Number [facility] [place] [address] * Amylase (02/21/2024 9:45 AM EDT) Amylase 69 28 - 100 unit/L [facility] Blood 02/21/2024 9:45 AM EDT 02/21/2024 9:52 AM EDT Narrative Resulting Agency Comment Spec In Lab Hayder Graham MD CHEMISTRY ORDERABLE S Performing Organization Address [facility] de Phone Number [facility] [place] [address] * Potassium (02/21/2024 3:08 AM EDT) Pathologist [facility] Potassium 3.8 3.5 - 5.0 mmol/L [facility] [...] CHEMISTRY ORDERABLE S Performing Organization Address [facility] Co de Phone Number [facility] [place] [address] * XR Chest PA & Lateral (Generic) (02/20/2024 10:19 AM EDT) WORKSTATION ID [id number] RAD Anatomical Region Laterality Modality Chest N/A Digital Radiogra phy Impressions 02/20/2024 1:11 PM EDT Small pleural effusions. No pneumothorax Thank you for letting us participate in the care of this patient. ??If you are a health care provider and have any questions regarding this report, please contact the number below. ??For patients who have questions please contact the health healthcare liaison that requested your imaging first. ? Narrative 02/20/2024 1:11 PM EDT EXAMINATION: XR CHEST PA AND LATERAL (GENERIC) CLINICAL HISTORY: s/p AVR/CABGx3 TECHNIQUE: PA and lateral views of the chest COMPARISON: 02/17/2024 FINDINGS: Support devices: Interval removal of Sunflower-Kaila catheter, endotracheal tube and mediastinal chest tubes The cardiac silhouette is stable status post median sternotomy, CABG and aortic valve replacement. There are small pleural effusions. No pneumothorax. Procedure Note Rogerio Cruz MD - 02/20/2024 EXAMINATION: XR CHEST PA AND LATERAL (GENERIC) CLINICAL HISTORY: s/p AVR/CABGx3 TECHNIQUE: PA and lateral views of the chest COMPARISON: 02/17/2024 FINDINGS: Support devices: Interval removal of Sunflower-Kaila catheter, endotracheal tubeand mediastinal chest tubes The [...] who have questions please contactthe health healthcare liaison that requested your imaging first. Hayder Graham MD IMG DX ORDERABLES * Scan, Peripheral Blood (02/20/2024 4:23 AM EDT) Plat estimate Decreased [facility] RBC Morphology Normal [facility] Blood 02/20/2024 4:23 AM EDT 02/20/2024 4:42 AM EDT Narrative Resulting Agency Comment Spec In Lab Minnie FRENCH HEMATOLOGY CECILIO ALEMAN [facility] [place] [address] * (ABNORMAL) Differential, Automated (02/20/2024 4:23 AM EDT) Pathologist [facility] Neutrophil % 81.7 % [place] [...] CECILIO ALEMAN [facility] [place] [address] * (ABNORMAL) Hemogram (02/20/2024 4:23 AM EDT) White Blood Cell 12.7(H) 4.0 - 9.5 x10(3)/[facility] LABORATORY Red Blood Cell 4.26(L) 4.58 - 5.54 x10(6)/[facility] LABORATORY Hemoglobin 12.3(L) 13.7 - 16.5 [...] LABORATORY Platelet 88(L) 145 - 357 x10(3)/[facility] LABORATORY RDW Standard Deviation 43.5 36.0 [...] CECILIO ALEMAN [facility] [place] [address] * (ABNORMAL) Basic Metabolic Panel (non-fasting) (02/20/2024 [...] Phone Number [facility] [place] [address] * Potassium (02/19/2024 3:57 AM EDT) Potassium [...] CHEMISTRY ORDERABLE S Performing Organization Address [facility] Co de Phone Number [facility] [place] [address] * POCT Glucose (02/18/2024 8:24 AM EDT) Glucose, POC 157 65 - 199 mg/dL [facility] Comment: Supplemental ranges: <140 mg/dL before meals <180 mg/dL all other times of the day Blood 02/18/2024 8:24 AM EDT 02/18/2024 8:24 AM EDT Hayder Graham MD POINT OF CARE TEST ORDERABLES Performing Organization Address [facility]/ZIP Co de Phone Number [facility] [place] [address] * Scan, Peripheral Blood (02/18/2024 1:40 AM EDT) Plat estimate Decreased [facility] RBC Morphology Normal [facility] Blood 02/18/2024 1:40 AM EDT 02/18/2024 1:56 AM EDT Narrative Resulting Agency Comment Spec In Lab Neftali FRENCH HEMATOLOGY ORDER OLE [facility] [place] [address] * (ABNORMAL) Differential, Automated (02/18/2024 1:40 AM EDT) Neutrophil % 87.1 % [place] [...] ORDER OLE [facility] [place] [address] * (ABNORMAL) Hemogram (02/18/2024 1:40 AM EDT) [...] Standard Deviation 39.9 36.0 - 45.0 fL [facility] ORDER OLE [facility] [place] [address] * (ABNORMAL) Basic Metabolic Panel (non-fasting) (02/18/2024 [...] ORDERABLE S [facility] [place] [address] * (ABNORMAL) Troponin (02/18/2024 1:40 AM EDT) [...] Medical Center Laboratory Test Catalog Reference: Fourth Welch Definition of Myocardial Infarction. Journal of the [place] College [employer] 2018;72:4205-9035 Blood 02/18/2024 1:40 AM EDT 02/18/2024 1:56 AM EDT Narrative Resulting Agency Comment Spec In Lab Hayder Graham MD CHEMISTRY ORDERABLE S [facility] [place] [address] * POCT Glucose (02/17/2024 8:13 PM EDT) Glucose, POC 142 65 - 199 mg/dL [facility] Comment: Supplemental ranges: <140 mg/dL before meals <180 mg/dL all other times of the day Blood 02/17/2024 8:13 PM EDT 02/17/2024 8:13 PM EDT Hayder Graham MD POINT OF CARE TEST ORDERABLES Performing Organization Address [facility] Co de Phone Number [facility] [place] [address] * POCT Glucose (02/17/2024 5:42 PM EDT) Glucose, POC 160 65 - 199 mg/dL [facility] Comment: Supplemental ranges: <140 mg/dL before meals <180 mg/dL all other times of the day Blood 02/17/2024 5:42 PM EDT 02/17/2024 5:42 PM EDT Hayder Graham MD POINT OF CARE TEST ORDERABLES Performing Organization Address [facility] Co de Phone Number [facility] [place] [address] * Hemoglobin (02/17/2024 5:42 PM EDT) [facility] Signature Hemoglobin 13.7 13.7 - 16.5 g/dL [facility] Blood 02/17/2024 5:42 PM EDT 02/17/2024 6:10 PM EDT Narrative Resulting Agency Comment Spec In Lab Hayder Graham MD HEMATOLOGY ORDERABL ES Performing Organization Address [facility] Co de Phone Number [facility] [place] [address] * Potassium (02/17/2024 5:42 PM EDT) [facility] Signature Potassium 4.3 3.5 - 5.0 mmol/L [facility] [...] ORDERABLE S [facility] [place] [address] * (ABNORMAL) BLOOD GAS 2 ARTERIAL (02/17/2024 [facility] PF Ratio Art 195 [facility] Blood 02/17/2024 4:18 PM EDT 02/17/2024 4:18 PM EDT Hayder Graham MD POINT OF CARE TEST ORDERABLES [facility] [place] [address] * XR Chest One View (02/17/2024 1:44 PM EDT) [employer] WORKSTATION ID [id number] DH RAD Anatomical Region Laterality Modality Chest N/A Digital Radiogra phy Impressions 02/17/2024 2:12 PM EDT 1. ??No definite pleural fluid collection or pneumothorax. 2. ??Right IJ Sunflower-Kaila catheter tip terminates in a descending branch [...] have questions please contact the health healthcare liaison that requested your imaging first. ? Narrative 02/17/2024 2:12 PM EDT EXAMINATION: XR CHEST ONE VIEW CLINICAL HISTORY: s/p avr/cabg eval effusions TECHNIQUE: 1 view of the chest COMPARISON: Chest x-ray 01/09/2024, chest CT 02/03/2024 FINDINGS: ET tube tip terminates 5.2 cm above the carlos. Right IJ Sunflower-Kaila catheter tip terminates in a descending branch [...] 5.2 cm above the carlos. Right IJ Sunflower-Ganzcatheter tip terminates in a descending branch of [...] fluid collection or pneumothorax. 2. Right IJ Sunflower-Kaila catheter tip terminates in a descending branch ofthe right pulmonary artery. Suggest catheter retraction. 3. Additional support lines and tubes as above. Thank you for letting us participate in the care of this patient. If youare a health care provider and have any questions regarding this report,please contact the number below. For patients who have questions please contactthe health healthcare liaison that requested your imaging first. Hayder [...] [facility] PF Ratio Art 320 [facility] Blood 02/17/2024 1:31 PM EDT 02/17/2024 1:31 PM EDT Hayder Graham MD POINT OF CARE TEST ORDERABLES [facility] [place] [address] * (ABNORMAL) Coox2 (02/17/2024 1:21 PM EDT) [...] OF CARE TEST ORDERABLES Performing Organization Address City/[facility]/ZIP Co de Phone Number [facility] [place] [address] * (ABNORMAL) BLOOD GAS 2 ARTERIAL (02/17/2024 [...] CARE TEST ORDERABLES Performing Organization Address [facility] Co de Phone Number [facility] [place] [address] * (ABNORMAL) Fibrinogen (02/17/2024 12:10 PM EDT) [...] HEMATOLOGY ORDERABLE S Performing Organization Address [facility] Co de Phone Number [facility] [place] [address] * (ABNORMAL) Thrombin time (02/17/2024 12:10 PM [...] HEMATOLOGY ORDERABLE S Performing Organization Address [facility] Co de Phone Number [facility] [place] [address] * APTT (02/17/2024 12:10 PM EDT) Partial [...] HEMATOLOGY ORDERABLE S Performing Organization Address [facility] Co de Phone Number [facility] [place] [address] * (ABNORMAL) Prothrombin Time (02/17/2024 12:10 PM [...] ORDERABLE S [facility] [place] [address] * (ABNORMAL) Hemogram (02/17/2024 12:10 PM EDT) [...] ORDERABLE S [facility] [place] [address] * (ABNORMAL) BLOOD GAS 2 ARTERIAL (02/17/2024 [...] [facility] Comment: Noted by instrument mechanic. Please note: Patients with WBC [...] TEST ORDERABLES [facility] [place] [address] * (ABNORMAL) BLOOD GAS 2 ARTERIAL (02/17/2024 [...] [facility] Comment: Noted by instrument mechanic. Please note: Patients with WBC [...] CARE TEST ORDERABLES Performing Organization Address [facility] de Phone Number [facility] [place] [address] * (ABNORMAL) Hemoglobin and Hematocrit, blood (02/17/2024 [...] HEMATOLOGY ORDERABL ES Performing Organization Address [facility] de Phone Number [facility] [place] [address] * (ABNORMAL) Platelet count (02/17/2024 11:04 AM EDT) Platelet 106(L) 145 - 357 x10(3)/mc L [facility] Immature Plt % 1.6 0.0 - 7.4 % [facility] Comment: Limitation of the Immature Platelet Fraction (IPF)-May be less reliable when the platelet count is less than 00r908/uL due to statistical imprecision. The IPF value [...] in a decreased state of production. References: [employer] The Clinical Value of the Immature Platelet Fraction (IPF) in Cell Recovery Document Number [id number] 03/2011 [employer] The Role of the Immature Platelet Fraction (IPF) in the Differential Diagnosis of Thrombocytopenia, Document MKT-[id number] V002/15/14 Blood 02/17/2024 11:0 4 AM EDT 02/17/2024 11:12 AM EDT Narrative Resulting Agency Comment Spec In Lab Hayder Graham MD HEMATOLOGY ORDERABL ES Performing Organization Address City/[facility]/ZIP Co de Phone Number [facility] [place] [address] * (ABNORMAL) Fibrinogen (02/17/2024 11:04 AM EDT) [...] Phone Number [facility] [place] [address] * (ABNORMAL) BLOOD GAS 2 ARTERIAL (02/17/2024 [...] ORDERABLES [facility] [place] [address] * (ABNORMAL) BLOOD GAS 2 ARTERIAL (02/17/2024 [...] [facility] Co de Phone Number [facility] [place] [address] * Surgical Pathology Report (02/17/2024 10:01 AM EDT) Final Diagnosis [id number] ? Location: [facility]; [facility]; The signing pathologist has (i) examined the relevant preparation(s) for the specimen(s) and (ii) rendered or confirmed the diagnosis(es). . ?Surgical Pathology DIAGNOSIS Aortic valve leaflets, excision: Valve leaflets with myxoid degeneration, nodular fibrosis and dystrophic calcifications. Electronically signed by: ?Lindsay FERNANDEZ, Livier Gonzalez Verified: ??02/24/2024 13:49 ??Pathologist Performed at: ??-[facility] Dept. of Pathology, [place] [address] Riveter: Job Brewer MD, FCAP, ??CLIA Certificate: [id number] SPECIMEN(S) SUBMITTED A - Aortic Valve Leaflets, [...] Sections Processing Blocks submitted for decalcification: A1. Coverage Specialist sections in 1 cassette labeled A1. ??ajw 02/24/2024 1:49 PM EDT [facility] AORTIC STRUCTURE / Unknown 02/17/2024 10:01 AM EDT 02/17/2024 10:01 AM EDT Hayder Graham MD PATHOLOGY/[place] [address] * Specimen to Pathology (02/17/2024 10:01 AM EDT) AP Specimen 02/17/2024 10:0 1 AM EDT 02/17/2024 10:01 AM EDT Narrative [facility] - 02/17/2024 10:01 AM EDT Specimen requisition ordered. ??Separate Pathology report to follow Hayder Graham MD PATHOLOGY/CYTOLOGY ORDERABLES [facility] [place] [address] * (ABNORMAL) BLOOD GAS 2 ARTERIAL (02/17/2024 [...] TEST ORDERABLES [facility] [place] [address] * (ABNORMAL) BLOOD GAS 2 VENOUS (02/17/2024 9:34 AM EDT) pH, Venous 7.22(Criti marquez) 7.32 - 7.42 [facility] Comment:Noted by instrument mechanic. PCO2, Venous 43 41 - 51 mmHg [facility] Comment:Noted by instrument mechanic. PO2, Venous 57(H) 25 - 40 mmHg [facility] Comment:Noted by instrument mechanic. Bicarbonate, Venous 17.1 mmol/L [facility] Comment:Noted by instrument mechanic. Base Excess, Venous -10.6 mmol/L [facility] Comment:Noted by instrument mechanic. Hgb Blood Gas 11.2(L) 13.7 - 16.5 g/dL [facility] Comment:Noted by instrument mechanic. Oxyhemoglobin, Venous 86.5 % [facility] Comment:Noted by instrument mechanic. Carboxyhemoglob in, Venous 0.3 % [facility] Comment: Noted by instrument mechanic. Nonsmokers: 0.5-1.5% COHB Smokers: Variable, but usually less than 10% Toxic: 20-30% COHB Lethal: Greater than 60% COHB Methemoglobin, Venous 0.0 <=1.5 % [facility] Comment:Noted by instrument mechanic. Na Whole Blood 156(H) 135 - 145 mmol/L [facility] Comment:Noted by instrument mechanic. K Whole Blood 5.5(H) 3.5 - 5.0 mmol/L [facility] Comment: Noted by instrument mechanic. Please note: Patients with WBC >100,000 may have falsely elevated Potassium levels. Contact the Clinical Chemistry Laboratory if there are any questions. ICa Whole Blood 1.03(L) 1.15 - 1.33 mmol/L [facility] Comment: Noted by instrument mechanic. Note: ??Total bilirubin higher than 20 mg/dL may lead to falsely low ionized calcium. CL Whole Blood 100 98 - 107 mmol/L [facility] Comment:Noted by instrument mechanic. Gluc Whole Bld 132 65 - 199 mg/dL [facility] Comment: Noted by instrument mechanic. Diabetes: >=200 mg/dL plus symptoms Lactate WB 1.0 0.5 - 2.2 mmol/L [facility] Comment:Noted by instrument mechanic. Blood Gas Source Venous [facility] Blood 02/17/2024 9:34 AM EDT 02/17/2024 9:34 AM EDT Hayder Graham MD POINT OF CARE TEST ORDERABLES [facility] [place] [address] * (ABNORMAL) BLOOD GAS 2 ARTERIAL (02/17/2024 [...] OF CARE TEST ORDERABLES Performing Organization Address City/[facility]/ZIP Co de Phone Number [facility] [place] [address] * POCT Glucose (02/17/2024 6:38 AM EDT) Glucose, POC 98 65 - 199 mg/dL [facility] Comment: Supplemental ranges: <140 mg/dL before meals <180 mg/dL all other times of the day Blood 02/17/2024 6:38 AM EDT 02/17/2024 6:38 AM EDT Hayder Graham MD POINT OF CARE TEST ORDERABLES Performing Organization Address [facility] Co de Phone Number [facility] [place] [address] * Transesophageal Echo/OR (02/17/2024 6:33 AM EDT) [...] [facility] [...] Non-Valvular Atrial Fibrillation 0821 (Given - Provider: Reilyl Vincent RN)2057 (Given - Provider: Polo Britton [...] Routine documented in this encounter Care Teams Jboss Developer Relationship Specialty Start Date End Date Aparna Jordan APRN PCP - General Family Medicine 10/21/23 05/26/24 documented as of this encounter
--- OUTSIDE RECORDS SUMMARY | 2024-10-29 10:45 | XMS_ITS | Encounter Summary ---
Author Organization [facility] [address] Care Team Providers Care Angle Shearer Name Role Phone Vanessa Christian APRN Primary [...] on filedocumented in this encounter Care Teams Angle Shearer Relationship Specialty Start Date End Date Vanessa Christian APRN PCP - General Family Medicine 10/21/23 05/26/24 documented as of this encounter
--- OUTSIDE RECORDS SUMMARY | 2024-11-03 10:14 | XMS_ITS | Referral Summary ---
Author Organization [facility] Address [address] [place] [address] Care Team Providers Care Airframe And Power Plant Mechanic Name Role Phone Vanessa Christian Lane MONCADA Primary Care Provider [phone] Social History Tobacco Use Types Packs/Day Years Used Date Smoking Tobacco: Never Assessed Sex and Gender Information Value Date Recorded Sex Assigned at Not on file Legal Sex Male 22:02 EST Gender Identity Not on file Sexual Orientation Not on file Plan of Treatment Not on file Insurance R Care Teams Airframe And Power Plant Mechanic Relationship Specialty Start Date End Date Vanessa Chirstian, ANTWAN [address] [place] [phone] PCP - General Family Medicine - Primary Care 10/07/23
--- OUTSIDE RECORDS SUMMARY | 2024-11-03 10:14 | XMS_ITS | Encounter Summary ---
Author Organization [facility] Address [facility] [place] [address] Care Team Providers Care Audit Director Name Role Phone Vanessa Christian MAURI Primary Care Provider [phone] Encounter Details Date Type Department Care Team [...] PM EST Office Visit Cardiology at [address] [address] Sheila Johnson APRN [address] [place] [address], [facility] [place] [address] documented as of this encounter Visit Diagnoses Not on filedocumented in this encounter Care Teams Audit Director Relationship Specialty Start Date End Date Vanessa Christian APRN PCP - General Family Medicine 10/21/23 05/26/24 documented as of this encounter
--- OUTSIDE RECORDS SUMMARY | 2024-11-03 10:14 | XMS_ITS | Clinical Summary ---
Author Organization [facility] Address [facility] [place] [address] Care Team Providers Care Media Marketing Coordinator Name Role Phone Vanessa Christian Lane DOTSON Primary Care Provider [phone] Allergies No known active allergies Medications Medication [...] the meantime will refer to SHT at [facility] for further evaluation. Logistics and preliminary review [...] = 0.6 oz pur e alcohol) rare [facility] Utilities Answer Date Recorded In the [...] Office Visit Cardiology at [address] [address] [address]N [address] [facility] [place] [address] Health Maintenance Due Date Last Done Comments [...] series) 06/07/2024 Medical Devices Implanted Type Area Escort Vehicle Driver Device Identifier Shelf Expiration Date Model / Serial / Lot Cable,Cut,Edg ,Blnt,Ss,3tpr ([id number]) - [id number] Implanted:Qty : 1 on 02/17/2024 by Zak Farmer MD at [facility] IMPLANTS Midline: Chest [employer] - [id number] 09/02/2028 [id number] / / [id number] Valve Coronary Aortic 23mm Tissue Trnscath Biopros Inspiris ([id number]) (Autoreq) - [id number] Implanted:Qty : 1 on 02/17/2024 by Zak Farmer MD at [facility] IMPLANTS Heart [employer] - TSAI LI 09/15/2027 [id number] 23MM / [id number] / Advance Directives * Attempt Cardiopulmonary Resuscitation [...] Status decision made by: Patient Care Teams Media Marketing Coordinator Relationship Specialty Start Date End Date Vanessa Christian APRN [address] [place] [address] PCP - General Family Medicine 05/27/24
--- OUTSIDE RECORDS SUMMARY | 2024-11-03 10:14 | XMS_ITS | Encounter Summary ---
Author Organization [facility] Address [facility] [place] [address] Care Team Providers Care Director Of Graduate Medical Education Name Role Phone Vanessa Christian MAURI Primary Care Provider [phone] Encounter Details Date Type Department Care Team (Latest Contact Info) Description 03/12/2024 1:30 PM EDT - 03/12/2024 11:59 PM EDT Hospital Encounter XRay at [address] [place] [address] Coronary artery disease, unspecified vessel or lesion [...] In the past 12 months has e [employer], gas, oil, or water [employer] threatened to shut off services in your [...] 3:00 PM EST Office Visit Cardiology at [place] [address] [place] [address] Sheila Johnson, MAURI [address] [facility] [place] [address] documented as of this encounter Procedures Procedure Name Priority Date/Time Associated Diagnosis Comments XR CHEST PA AND LATERAL Routine 03/12/2024 1:42 PM EDT Coronary artery disease, unspecified vessel or lesion type, unspecified whether angina present, unspecified whether [place] si[place] or transplanted heart documented in this encounter Results * XR Chest PA & Lateral (Generic) (03/12/2024 1:42 PM EDT) Pathologist Electron Database WORKSTATION ID [id number] RAD Anatomical Region Laterality Modality Chest N/A [...] have questions please contact the health healthcare consultant that requested your imaging first. ? Electronically signed by: Augie Sanchez MD, [facility] ([phone]), at 03/13/2024 8:28 AM Narrative 03/13/2024 8:28 [...] who have questions please contactthe health healthcare consultant that requested your imaging first. Electronically signed by: Augie Sanchez MD, [facility]([phone]), at 03/13/2024 8:28 AM Zak Farmer MD IMG DX ORDERABLES documented in this encounter Visit Diagnoses Diagnosis Coronary artery disease, unspecified vessel or lesion type, unspecified whether angina present, unspecified whether [place] si[place] or transplanted heart documented in this encounter Care Teams Director Of Graduate Medical Education Relationship Specialty Start Date End Date Vanessa Christian APRN PCP - General Family Medicine 10/21/23 05/26/24 documented as of this encounter
--- OUTSIDE RECORDS SUMMARY | 2024-11-03 10:14 | XMS_ITS | Clinical Summary ---
Author Organization [facility] Address [address] [place] [address] Care Team Providers Care Washer Engineer Name Role Phone Filidayna Vanessa Sherman NP Primary Care Provider [phone] Social History Tobacco Use Types Packs/Day Years [...] 75+ series) 2034 Insurance [employer] Care Teams Washer Engineer Relationship Specialty Start Date End Date Vanessa Christian, ANTWAN [address] [place] [phone] PCP - General Family Medicine - Primary Care 10/07/23
--- OUTSIDE RECORDS SUMMARY | 2024-11-03 10:14 | XMS_ITS | Encounter Summary ---
Author Organization [facility] Address [address] [place] [address] Care Team Providers Care Pile Operator Name Role Phone Filidayna Vanessa Dayna MONCADA Primary Care Provider [phone] Encounter Details Date Type Department Care Team (Late st Contact Info) Description 10/24/2023 Lab Requisition [facility] Pathology & Laboratory Medicine - [address] [address] Oscar Nichole MD [address] [place] [address] [phone] Factitial dermatitis Social History Tobacco Use Types [...] management options, if applicable. 10/28/2023 11:24 EST [facility] Final Diagnosis A. SKIN OF BUDDHIST, LEFT, SHAVE BIOPSY: - Seborrheic keratosis, pigmented. 10/28/2023 11:24 EST [facility] Attestation By the signature below, the attending physician certifies that they have 1) personally conducted a gross and/or microscopic examination of the described specimen(s), and/or personally interpreted the results of laboratory testing of the described specimen(s), and 2) personally rendered or confirmed the above diagnosis. 10/28/2023 11:24 [facility] at [address] Microscopic Description The stratum corneum is thickened by compact and basketweave orthokeratosis with formation of horn pseudocysts. The epidermis is acanthotic with formation of broad and anastomosing trabeculae. The trabeculae are composed of basaloid keratinocytes with round uniform nuclei. The keratinocytes have a variable amount of melanin pigment. 10/28/2023 11:24 [facility] Clinical History Pigmented 2 cm patch; clinical diagnosis code: L98.1 10/28/2023 11:24 [facility] Gross Description A. Received in formalin labelled with proper patient identification (initials P, A) and left jew is a shave biopsy of an irregular [...] A3. Nora Anderson 10/25/2023 8:47 10/28/2023 11:24 [facility] Performing Lab [facility] 10/28/2023 11:24 [facility] Scanned Images 10/28/2023 11:24 [facility] Tissue SPECIMEN FROM SKIN / Unknown 10/24/2023 14:30 EST 10/24/2023 22:04 EST us Oscar Nichole MD PATHOLOGY ORDERABLES Final Resul t [facility] [address] [place] [address] documented in this encounter Visit Diagnoses Diagnosis Factitial dermatitis Dermatitis factitia (artefacta) documented in this encounter Care Teams Pile Operator Relationship Specialty Start Date End Date Vanessa Christian NP [address] [place] [address] PCP - General Family Medicine - Primary Care 10/07/23 documented as of this encounter
--- OUTSIDE RECORDS SUMMARY | 2024-11-03 10:14 | XMS_ITS | Encounter Summary ---
Author Organization [facility] Address [facility] [place] [address] Care Team Providers Care Rubber Liner Name Role Phone Vanessa Christian Lane DOTSON Primary Care Provider [phone] Reason for Visit * Reason Comments Coronary Artery Disease Aortic Stenosis Encounter Details Date Type Department Care Team (Latest Contact Info) Description 05/27/2024 11:00 AM EDT Office Visit Cardiology at [address] [place] [phone] Neftali Ernandez MD [facility] [place] [address] ASCVD (arteriosclerotic cardiovascular disease); Nonrheumatic aortic valve stenosis Social History Tobacco Use Types Packs/Day Years Used Date Smoking Tobacco: Former Cigarettes Smokeless Tobacco: Never Comments:Quit 15 + years ago Alcohol Use Standard Drinks/Week Comments Yes 0 (1 standard drink = 0.6 oz pur e alcohol) rare [facility] Utilities Answer Date Recorded In the past 12 months has e [employer], gas, oil, or water [employer] threatened to shut off services in your [...] PM EST Office Visit Cardiology at [address] [address] Sheila Johnson APRN [address] [facility] [place] [address] documented as of this encounter Visit Diagnoses Diagnosis ASCVD (arteriosclerotic cardiovascular disease) Unspecified cardiovascular disease Nonrheumatic aortic valve stenosis Aortic valve disorders documented in this encounter Care Teams Rubber Liner Relationship Specialty Start Date End Date Vanessa Christian APRN [address] [place] [address] PCP - General Family Medicine 05/27/24 documented as of this encounter
--- OUTSIDE RECORDS SUMMARY | 2024-11-03 10:14 | XMS_ITS | Encounter Summary ---
Author Organization [facility] Address [facility] [place] [place] [address] Care Team Providers Care Clinical Trials Systems Administrator Name Role Phone Vanessa Christian MAURI Primary Care Provider [phone] Encounter Details Date Type Department Care Team [...] PM EST Office Visit Cardiology at [address] [address] Sheila Johnson APRN [address] [place] [address], [facility] [place] [address] documented as of this encounter Visit Diagnoses Not on filedocumented in this encounter Care Teams Clinical Trials Systems Administrator Relationship Specialty Start Date End Date Vanessa Christian APRN PCP - General Family Medicine 10/21/23 05/26/24 documented as of this encounter
--- OUTSIDE RECORDS SUMMARY | 2024-11-03 10:14 | XMS_ITS | Encounter Summary ---
Author Organization [facility] Address [facility] [place] [address] Care Team Providers Care Leather Tanner Name Role Phone Vanessa Christian MAURI Primary Care Provider [phone] Encounter Details Date Type Department Care Team [...] PM EST Office Visit Cardiology at [address] [address] Sheila Johnson APRN [address] [place] [address], [facility] [place] [address] documented as of this encounter Visit Diagnoses Not on filedocumented in this encounter Care Teams Leather Tanner Relationship Specialty Start Date End Date Vanessa Christian APRN [address] [place] [address] PCP - General Family Medicine 05/27/24 documented as of this encounter
--- OUTSIDE RECORDS SUMMARY | 2024-11-03 10:14 | XMS_ITS | Encounter Summary ---
Author Organization [facility] Address [facility] [place] [address] Care Team Providers Care Personal Lines Insurance Advisor Name Role Phone Vanessa Christian [employer] Primary Care Provider [phone] Encounter Details Date Type Department Care Team (Late st Contact Info) Description 03/12/2024 2:40 PM EDT Office [place] [phone] Zak Farmer MD [facility] [place] [address] Coronary artery disease, unspecified vessel or lesion type, unspecified whether angina present, unspecified whether [place] or transplanted heart Social History Tobacco Use Types Packs/Day Years Used Date Smoking Tobacco: Former Cigarettes Smokeless Tobacco: Never Comments:Quit 15 + years ago Alcohol Use Standard Drinks/Week Comments Yes 0 (1 standard drink = 0.6 oz pur e alcohol) rare [facility] Utilities Answer Date Recorded In the past 12 months has e [employer], gas, oil, or water [employer] threatened to shut off services in [...] 2:40 PM EDT To: MD Vanessa Coles, [employer] Re; Karlos [place] ( 1960) We had [...] office. Best personal regards, Zak Farmer MD [phone] documented in this encounter Plan of Treatment Upcoming Encounters Date Type Department Care Team (Late st Contact Info) Description 11/30/2024 3:00 PM EST Office Visit Cardiology at [place] [address] [place] [address] Sheila Johnson, MAURI [address] [facility], [facility] [place] [address] documented as of this encounter Procedures Procedure Name Priority Date/Time Associated Diagnosis Comments EKG 12-LEAD Routine 03/12/2024 2:35 PM EDT Coronary artery disease, unspecified vessel or lesion type, unspecified whether angina present, unspecified whether [place] or transplanted heart documented in this encounter Results * EKG 12 Lead (03/12/2024 2:35 PM EDT) Ventricular rate 59 BPM MUSE SYSTEM Atrial Rate 59 BPM MUSE SYSTEM P-R Interval 190 ms MUSE SYSTEM QRS Duration 92 ms MUSE SYSTEM Q-T Interval 406 ms MUSE SYSTEM QTC Calculated (Bezet) 401 ms MUSE SYSTEM Calculated P [place] -12 degrees MUSE SYSTEM Calculated R [place] 24 degrees MUSE SYSTEM Calculated T [place] 74 degrees MUSE SYSTEM INTERPRETATION Sinus bradycardia T wave abnormality, consider anterior ischemia Abnormal ECG When compared with ECG of 17-FEB-2024 13:24, [place] interval has decreased T wave inversion now evident in Anterior leads Confirmed by Paul Guzman ([id number]) on 03/15/2024 8:36:23 AM MUSE SYSTEM 03/12/2024 2:35 PM EDT 03/15/2024 8:36 AM EDT Zak Farmer MD ECG ORDERABLES MUSE SYSTEM documented in this encounter Visit Diagnoses Diagnosis Coronary artery disease, unspecified vessel or lesion type, unspecified whether angina present, unspecified whether [place] or transplanted heart documented in this encounter Care Teams Personal Lines Insurance Advisor Relationship Specialty Start Date End Date Vanessa Christian APRN PCP - General Family Medicine 10/21/23 05/26/24 documented as of this encounter
--- OUTSIDE RECORDS SUMMARY | 2024-11-03 10:15 | XMS_ITS | Encounter Summary ---
[place] [address] Care Team Providers Care Tester Electronic Scale Name Role Phone Aparna Jordan MAURI Primary Care Provider [phone] Reason for Referral * Diagnostic Test (Routine) - New Request Specialty Diagnoses / Procedures Referred By Contac t Referred To Contact Cardiology Diagnoses S/P AVR Procedures Echocardiogram Transthoracic Neftali Menon PA [facility] [place] [address] [facility] [place] [address] Referral ID Status Reason Start Date Expiration Date Visits Requested Visits Authorized [id number] New Request Specialty Service Requested 02/24/2024 02/23/2025 1 1 * Consultation (Routine) - Closed Specialty Diagnoses / Procedures Referred By Contac t Referred To Contact Cardiology Diagnoses S/P AVR Hayder Graham MD [facility] [place] [address] Cardiac Rehab, [facility] [address] [place] [address] [place] [address] Referral ID Status Reason Start Date Expiration Date V isits Requested Visits Authorized [id number] Closed Consult, Test & Treat 02/24/2024 08/22/2024 36 36 * Home Health Care (Routine) - Closed Specialty Diagnoses / Procedures Referred By Sixto mendoza Referred To Contact Diagnoses S/P AVR Hayder Graham MD [facility] [place] [address] Referral ID Status Reason Start Date Expiration Date V isits Requested Visits Authorized [id number] Closed Consult, Test & Treat 02/24/2024 08/22/2024 [...] ARTERIAL GRAFT (WRVU 7.93) Hayder Graham MD [facility] [place] [address] [facility] Referral ID Status Reason Start Date Expiration Date Visits Re quested Visits Authorized [id number] 1 1 Encounter Details Date Type Department Care Team (Latest Contact Info) Description 02/17/2024 5:43 AM EDT - 02/24/2024 11:23 AM EDT Hospital Encounter Heart and Vascular Unit Level 4 [place] [address] Hayder Graham MD [facility] [place] [address] S/P AVR (Primary Dx); Aortic valve stenosis, [...] 1-2 weeks. Patient to follow up with Paint Factory Worker, Neftali Ernandez MD , in 2 weeks. Patient to follow up with Cardiac Surgeon, Dr. Hayder Graham, with a chest x-ray, EKG, and Echo. 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 Past Surgical History: Procedure Laterality Date PRO CABG, ARTERIAL, SINGLE N/A 02/17/2024 @CABG, USING ARTERIAL GRAFT;SINGLE ARTERIAL GRAFT (WRVU 33.75) performed by Hayder Graham MD at [facility] MAIN OR PRO CABG, ARTERY-VEIN, TWO N/A 02/17/2024 @CABG, TWO VENOUS GRAFTS & ARTERIAL GRAFT (WRVU 7.93) performed by Hayder Graham MD at [facility] MAIN OR PRO ENDOSCOPY W/VIDEO-ASST VEIN HARVEST, CABG Left 02/17/2024 ENDOSCOPIC HARVEST VEIN(S) FOR CABG (WRVU 0.31) performed by Hayder Graham MD at [facility] MAIN OR PRO REPLACEMENT PROSTHETIC AORTIC VALVE OPEN W CARDIOPULMONARY BYPASS HOMOGRF/STENT N/A 02/17/2024 @REPLACE AORTIC VALVE, OPEN, W\CPB, W\PROSTHETIC VALVE (WRVU 41.32) performed by Hayder Graham MD at [facility] MAIN OR Prior To Admission [...] insufficiency. He has glaucoma. He used to Acompli until about 15 years ago. He has undergone prior herniorrhaphy. 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 Major Procedures/Operations: 02/17/24 s/p avr/cabgx3 CABG x 3 JOSE->LAD SVG->dRCA SVG->OM1 EVH from LLE AVR with a 23 mm Inspiris Bioprosthesis Hospital Course: Karlos Garcia was admitted to [facility] on 02/17/2024 via the Same [...] Hayder Graham and/or the Cardiac Surgery Physician Business Services Coordinator Team may be reached at . [...] Dr. Hayder Graham. You may use a [place] Track or treadmill but avoid any [...] while being managed by your PCP and/or Paint Factory Worker. For future medication refills, please refer to your PCP and/or Paint Factory Worker after your discharge from our service. Thank you REMOVE CHEST TUBE SUTURES ON OR AFTER 03/02/24 Home oxygen therapy: N/A Follow up appointments: You should follow up with your PCP, Aparna Jordan APRN, in 1-2 weeks. Our office will schedule an appointment with your Paint Factory Worker, Neftali Ernandez MD , in 2 [...] Future Orders Complete By Expires Echocardiogram Transthoracic [68960 CPT(R)] 03/26/2024 09/25/2024 Process Instructions: Scheduling Instructions: Questions: Where will study be performed?: [facility] Clinics Does the patient have Congenital Heart Disease?: Does patient require sedation?: Sedation rationale: XR Chest PA & Lateral (Generic) [24075 96014 Custom] 03/26/2024 09/25/2024 Process Instructions: Scheduling Instructions: Questions: Portable exam?: Reason for exam and clinical history: s/p avr/cabg Clinical information / jerome questions for radiologist: Stat read required?: Date of injury if applicable: Requested Time: Where will study be performed?: [facility] Radiology Referral to Cardiac Rehab [[id number] Custom] As directed Process Instructions: If no [...] to Home Health. [address] Phone Number: Date of : 1960 Inpatient DOCUMENTATION FOR VNA SERVICES (INCLUDING THOSE PATIENTS WITH MEDICARE COVERAGE REQUIRING HOME VNA SERVICES AND/OR HOSPICE SERVICES) PATIENT'S LOCATION: Karlos Garcia [address] [employer] [phone] Foil Spooler's Name: self/family In discussion with the attending physician, it is certified that this patient is under their care and that they, or a Nurse Practitioner, or Physician Business Services Coordinator who is working directly with them, [...] for services as follows: HOME HEALTH AGENCY: [facility]. [address] [place] [address] RN orders: Cardiopulmonary assessment, incisional assessment, assess [...] issues please call the Cardiology Office at [phone] FOR MEDICARE ONLY: (please delete this section [...] As above. Signed: NEFTALI MENON PA-C [facility] Section of Cardiac Surgery [facility] [place] [address] FAX [phone] Date: 02/24/2024 CC: Aparna Jordan, MAURI Jordan, Aparna Sherman APRN [address] [place] [address] documented in this encounter Discharge Instructions * [...] Hayder Graham and/or the Cardiac Surgery Physician Business Services Coordinator Team may be reached at . [...] Dr. Hayder Graham. You may use a [place] Track or treadmill but avoid any [...] while being managed by your PCP and/or Paint Factory Worker. For future medication refills, please refer to your PCP and/or Paint Factory Worker after your discharge from our service. Thank you REMOVE CHEST TUBE SUTURES ON OR AFTER 03/02/24 Home oxygen therapy: N/A Follow up appointments: You should follow up with your PCP, Aparna Jordan APRN, in 1-2 weeks. Our office will schedule an appointment with your Paint Factory Worker, Neftali Ernandez MD , in 2 [...] 0600 and on the weekends please page [phone]. * Eric Barahona PA - 02/23/2024 9:27 [...] 0600 and on the weekends please page [phone]. * Tiffanie Owens PTA - 02/22/2024 2:48 [...] d/c for 10 days. 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 He works Precautions/Special Considerations: [...] LRAD and supervision Time IN / OUT: 4327-3585 Total Time: 30 minutes; TEFx2 Tiffanie Owens Pager: [phone] Physical Therapy Inpatient Rehabilitation Department * Romeo [...] 0600 and on the weekends please page [phone]. * Kelley Hinson, WATCH TRAIN INSPECTOR - 02/21/2024 10:15 AM EDT Physical [...] d/c for 10 days. 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 He works Precautions/Special Considerations: [...] LRAD and supervision Time IN / OUT: 8558-6536 Total Time: 25 minutes; TEF 2 Kelley Hinson WATCH TRAIN INSPECTOR Pager: [phone] Physical Therapy Inpatient Rehabilitation Department * Louisa [...] 0600 and on the weekends please page [phone]. * Kelley Hinson PTA - 02/20/2024 3:32 PM EDT 02/20/24 2040 Evaluation & Treatment Document Type contact Total Minutes, Physical Therapy 0 Comment, Session Not Performed Checked in w/ pt this PM for ongoing PT services, pt politely declined, stating he had been dealing w/ nausea all day, made plan to see him tomorrow morning, will f/u at that time Kelley Hinson PTA Pager: [phone] Physical Therapy Inpatient Rehab Department * Louisa [...] 0600 and on the weekends please page [phone]. * Maris Benavides, PT - 02/19/2024 11:22 [...] d/c for 10 days. 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 Precautions/Special Considerations: [...] outlined inthis evaluation. MARIS BENAVIDES, PT Pager: [phone] Physical Therapy Inpatient Rehabilitation Department Time IN / OUT: 1279-1377 Total Time: 38 (eval) minutes; * Antonio [...] 0600 and on the weekends please page [phone]. * Minnie Begum PA - 02/18/2024 8:25 [...] 0600 and on the weekends please page [phone]. * Kim Ha RCP - 02/17/2024 2:25 [...] plan since last visit. Hayder Graham MD [phone] Source Note - Hayder Graham MD - [...] insufficiency. He has glaucoma. He used to Acompli until about 15 years ago. He has [...] given written informed consent. Hayder Graham MD [phone] * Hayder Graham MD - 02/17/2024 7:00 [...] given written informed consent. Hayder Graham MD [phone] documented in this encounter Miscellaneous Notes * [...] information for follow-up Home Health & Hospice, [address] [place] [address] Cardiac Rehab, [facility] [address] [facility] [place] [address] Transportation: family or friend will provide Functional status prior to admission: Independent Home Environment: Others in the home: alone. Current Living Arrangements: home/apartment/condo. Accessibility Concerns:a few steps to enter 1 floor home. Current Functional Ability: Assistive Person and Equipment DME used at home: none DME Needed at Discharge: N/A Patient is insured through: Primary Insurance: [employer] Payor: [facility] / Plan: [facility] PPO / Product Type: *No [...] pain managed with scheduled Tylenol. Worked with Dials. Ambulated in the roque multiple times during [...] anticipated Patient is insured through: Primary Insurance: [employer] Payor: [facility] / Plan: [facility] PPO / Product Type: *No Product type* / Secondary Insurance: N/A Last Physical Therapy Recommendation: home with home health (Str coming to stay for a week or two upon d/c) with to be determined (owns rolling walker, shower seat) Plan for discharge is: Home w/ Services Outpatient Agency/Support Group Needs: Homecare agency Home Health Services: Physical Therapy, Registered Nurse Agency Referrals: [facility] [address] [address] Transportation: family or friend will provide Barriers to discharge: Discharge planning Plan going forward: Service Care Management will continue to follow and assist with discharge planning and coordination of care as indicated. 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 (Only good for 180 days) Any patient receiving care in [place] must abide by [place] law. The hierarchy [...] agent with financial power of litigation attorney associate or a conservator appointed in accordance [...] In the past 12 months has the [employer], gas, oil, or water [employer] threatened to shut off services in [...] as: [address] [facility] [address] Physical address: [address] [facility], [address] Social & Family Supports: All names listed [...] Payor: [facility] / Plan: [facility] PPO / Product Type: *No Product type* / Secondary Insurance: N/A ; Prescription Coverage: Yes Preferred Pharmacy: [id number] AT [facility] & [address] [address] [place] Status: Patient is a : No Primary Care Provider confirmed: Aparna Jordan, AMMUNITION SUPERVISOR [phone] Patient/Caregiver Goals of Treatment: dc to home Potential Needs for Transition of Care: home health care Agency Referrals: I have met with the patient to: discuss discharge planning needs. provide the [facility], Office of Care Management letter from the [employer] pertaining to rehab referrals. provide a letter describing our affiliations within the [facility] and educate about their right to choose where referrals are sent. provide a list of Home Health Agencies / Durable Medical Equipment vendors which serve their preferred geographic area. provided patient with [facility] Star Quality Rating handout. They have requested referrals to: [facility] Care Agency [facility]. [address] [place] [address] Note routed to a Copy Coordinator who will communicate referrals to facilities [...] Reina Greene RN CM, BSN, CMGT- Ext [phone] * Plan of Care - Binta Trinidad [...] Operative Note Patient Name: Karlos Garcia DOB: [id number] MR#: [id number] Case Date: 02/17/2024 Surgeon: Surgeon(s) and Role: * Hayder Graham MD - Primary * Neftali Menon PA - Physician Business Services Coordinator Preoperative diagnosis: CAD Postoperative diagnosis: CAD, [...] Operative Note Patient Name: Karlos Garcia : [id number] MR#: [id number] Case Date: 02/17/2024 Surgeon: Surgeons and Role: * Hayder Graham MD - Primary * Neftali Menon PA - Physician Business Services Coordinator Preoperative diagnosis: CAD Postoperative diagnosis: CAD, [...] Drains: Mediastinal and Left pleural Disposition: [facility] Procedure Description: The patient was [...] 3:00 PM EST Office Visit Cardiology at [place] [address] [place] [id number] Sheila Johnson APRN [address] [facility], [facility] [place] [address] Scheduled Orders Name Type Priority Associated Diagnoses [...] Aortic Valve Open W Cardiopulmonary Bypass Homogrf/Stent (66361) Yes 02/17/2024 7:28 AM EDT CAD Cabg, Artery-Vein, Two (76464) Yes 02/17/2024 7:28 AM EDT CAD Cabg, Arterial, Single (57484) Yes 02/17/2024 7:28 AM EDT CAD Endoscopy W/Video-Asst Vein [place], Cabg (59021) Yes 02/17/2024 7:28 AM EDT CAD POCT [...] S [facility] [place] [address] * (ABNORMAL) Basic Metabolic Panel (non-fasting) (02/23/2024 [...] ORDERABLES [facility] [place] [address] * Potassium (02/22/2024 4:30 AM EDT) Potassium [...] S [facility] [place] [address] * (ABNORMAL) Basic Metabolic Panel (non-fasting) (02/21/2024 [...] Carpio MD CHEMISTRY ORDERABLES Performing Organization Address City/[facility]/ZIP Co de Phone Number [facility] [place] [address] * Lactate, whole blood, send to lab ([facility]) (02/21/2024 9:45 AM EDT) [facility] Lactate WB 2.0 0.5 - 2.2 mmol/L [facility] Blood 02/21/2024 9:45 AM EDT 02/21/2024 9:52 AM EDT Narrative Resulting Agency Comment Spec In Lab Hayder Graham MD CHEMISTRY ORDERABLE S Performing Organization Address City/[facility]/ZIP Co de Phone Number [facility] [place] [address] * (ABNORMAL) Hepatic Function Panel (02/21/2024 9:45 [...] CHEMISTRY ORDERABLE S Performing Organization Address City/[facility]/ZIP Co de Phone Number [facility] [place] [address] * Lipase (02/21/2024 9:45 AM EDT) Lipase 56 0 - 60 unit/L [facility] Blood 02/21/2024 9:45 AM EDT 02/21/2024 9:52 AM EDT Narrative Resulting Agency Comment Spec In Lab Hayder Graham MD CHEMISTRY ORDERABLE S Performing Organization Address [facility] Co de Phone Number [facility] [place] [address] * Amylase (02/21/2024 9:45 AM EDT) Amylase 69 28 - 100 unit/L [facility] Blood 02/21/2024 9:45 AM EDT 02/21/2024 9:52 AM EDT Narrative Resulting Agency Comment Spec In Lab Hayder Graham MD CHEMISTRY ORDERABLE S Performing Organization Address [facility] Co de Phone Number [facility] [place] [address] * Potassium (02/21/2024 3:08 AM EDT) Potassium [...] Lab Hayder Graham MD CHEMISTRY ORDERABLE S [facility] [place] [address] * XR Chest PA & Lateral (Generic) (02/20/2024 10:19 AM EDT) WORKSTATION ID [id number] RAD Anatomical Region Laterality Modality Chest N/A [...] by: Rogerio Cruz MD, [facility] ??([phone]), at 02/20/2024 1:11 PM Narrative 02/20/2024 1:11 PM EDT EXAMINATION: XR CHEST PA AND LATERAL (GENERIC) CLINICAL HISTORY: s/p AVR/CABGx3 TECHNIQUE: PA and lateral views of the chest COMPARISON: 02/17/2024 FINDINGS: Support devices: Interval removal of [place]aila catheter, endotracheal tube and mediastinal chest tubes The cardiac silhouette is stable status post median sternotomy, CABG and aortic valve replacement. There are small pleural effusions. No pneumothorax. Procedure Note Rogerio Cruz MD - 02/20/2024 EXAMINATION: XR CHEST PA AND LATERAL (GENERIC) CLINICAL HISTORY: s/p AVR/CABGx3 TECHNIQUE: PA and lateral views of the chest COMPARISON: 02/17/2024 FINDINGS: Support devices: Interval removal of [place]aila catheter, endotracheal tubeand mediastinal chest tubes The [...] Pathologist [facility] Plat estimate Decreased [facility] RBC Morphology Normal [facility] Blood 02/20/2024 4:23 AM EDT 02/20/2024 4:42 AM EDT Narrative Resulting Agency Comment Spec In Lab Minnie FRENCH HEMATOLOGY CECILIO ALEMAN [facility] [place] [address] * (ABNORMAL) Differential, Automated (02/20/2024 4:23 AM EDT) [facility] Neutrophil % 81.7 % [facility] [...] [facility] Basophil % 0.2 % [place] [...] ALEMAN [facility] [place] [address] * (ABNORMAL) Hemogram (02/20/2024 4:23 AM EDT) White Blood Cell 12.7(H) 4.0 - 9.5 x10(3)/[facility] LABORATORY Red Blood Cell 4.26(L) 4.58 - 5.54 x10(6)/ L [facility] Hemoglobin 12.3(L) 13.7 [...] ALEMAN [facility] [place] [address] * (ABNORMAL) Basic Metabolic Panel (non-fasting) (02/20/2024 [...] MD CHEMISTRY ORDERABLE S Performing Organization Address [facility]/ZIP Co de Phone Number [facility] [place] [address] * Potassium (02/19/2024 3:57 AM EDT) [facility] Signature Potassium 4.3 3.5 - 5.0 mmol/L [facility]ITY [...] CHEMISTRY ORDERABLE S Performing Organization Address City/[facility]/ZIP Co de Phone Number [facility] [place] [address] * POCT Glucose (02/18/2024 8:24 AM EDT) [facility] Glucose, POC 157 65 - 199 mg/dL [facility] Comment: Supplemental ranges: <140 mg/dL before meals <180 mg/dL all other times of the day Blood 02/18/2024 8:24 AM EDT 02/18/2024 8:24 AM EDT Hayder Graham MD POINT OF CARE TEST ORDERABLES Performing Organization Address City/[facility]/ZIP Co de Phone Number [facility] [place] [address] * Scan, Peripheral Blood (02/18/2024 1:40 AM EDT) [facility] Plat estimate Decreased [facility] RBC Morphology Normal [facility] Blood 02/18/2024 1:40 AM EDT 02/18/2024 1:56 AM EDT Narrative Resulting Agency Comment Spec In Lab Neftali FRENCH HEMATOLOGY ORDER OLE Performing Organization Address City/[facility]/ZIP Co de Phone Number [facility] [place] [address] * (ABNORMAL) Differential, Automated (02/18/2024 1:40 AM EDT) [facility] Neutrophil % 87.1 % [facility] [...] FRENCH HEMATOLOGY ORDER OLE Performing Organization Address City/State/[facility] Co de Phone Number [facility] [place] [address] * (ABNORMAL) Hemogram (02/18/2024 1:40 AM EDT) [...] OLE [facility] [place] [address] * (ABNORMAL) Basic Metabolic Panel (non-fasting) (02/18/2024 [...] Filtration Rate 105 >=60 mL/min/1. 73 m?? [facility] Comment: This patient's estimated [...] S [facility] [place] [address] * (ABNORMAL) Troponin (02/18/2024 1:40 AM EDT) Pathologist [facility] Troponin-T, High Sensitivity 342(H) <=22 ng/L [facility] [...] troponin value can be found in the [facility] Test Catalog Troponin - [facility] Test Catalog Reference: Fourth Clarence Definition of Myocardial Infarction. Journal of the [place] [employer] 2018;72:1999-8216 Blood 02/18/2024 1:40 AM EDT 02/18/2024 1:56 AM EDT Narrative Resulting Agency Comment Spec In Lab Hayder Graham MD CHEMISTRY ORDERABLE S Performing Organization Address City/[facility]/ZIP Co de Phone Number [facility] [place] [address] * POCT Glucose (02/17/2024 8:13 PM EDT) Glucose, POC 142 65 - 199 mg/dL [facility] Comment: Supplemental ranges: <140 mg/dL before meals <180 mg/dL all other times of the day Blood 02/17/2024 8:13 PM EDT 02/17/2024 8:13 PM EDT Hayder Graham MD POINT OF CARE TEST ORDERABLES Performing Organization Address [facility]/ZIP Co de Phone Number [facility] [place] [address] * POCT Glucose (02/17/2024 5:42 PM EDT) Glucose, POC 160 65 - 199 mg/dL [facility] Comment: Supplemental ranges: <140 mg/dL before meals <180 mg/dL all other times of the day Blood 02/17/2024 5:42 PM EDT 02/17/2024 5:42 PM EDT Hayder Graham MD POINT OF CARE TEST ORDERABLES Performing Organization Address City/[facility]/ZIP Co de Phone Number [facility] [place] [address] * Hemoglobin (02/17/2024 5:42 PM EDT) Hemoglobin 13.7 13.7 - 16.5 g/dL [facility] Blood 02/17/2024 5:42 PM EDT 02/17/2024 6:10 PM EDT Narrative Resulting Agency Comment Spec In Lab Hayder Graham MD HEMATOLOGY ORDERABL ES Performing Organization Address [facility] Co de Phone Number [facility] [place] [address] * Potassium (02/17/2024 5:42 PM EDT) Potassium [...] MD CHEMISTRY ORDERABLE S Performing Organization Address [facility] [facility] Co de Phone Number [facility] [place] [address] * (ABNORMAL) BLOOD GAS 2 ARTERIAL (02/17/2024 [...] ORDERABLES [facility] [place] [address] * XR Chest One View (02/17/2024 1:44 PM EDT) WORKSTATION ID [id number] RAD Anatomical Region Laterality Modality Chest N/A Digital Radiogra phy Impressions 02/17/2024 2:12 PM EDT 1. ??No definite pleural fluid collection or pneumothorax. 2. ??Right IJ [place] catheter tip terminates in a descending branch [...] by: Denzel Hankins MD, [facility] ??([phone]), at 02/17/2024 2:12 PM Narrative 02/17/2024 2:12 PM EDT EXAMINATION: XR CHEST ONE VIEW CLINICAL HISTORY: s/p avr/cabg eval effusions TECHNIQUE: 1 view of the chest COMPARISON: Chest x-ray 01/09/2024, chest CT 02/03/2024 FINDINGS: ET tube tip terminates 5.2 cm above the carlos. Right IJ [place]a catheter tip terminates in a descending branch [...] 5.2 cm above the carlos. Right IJ [place]-Ganzcatheter tip terminates in a descending branch of [...] fluid collection or pneumothorax. 2. Right IJ [place] catheter tip terminates in a descending branch [...] ORDERABLES [facility] [place] [address] * (ABNORMAL) Coox2 (02/17/2024 1:21 PM EDT) [...] ORDERABLES [facility] [place] [address] * (ABNORMAL) BLOOD GAS 2 ARTERIAL (02/17/2024 [...] OF CARE TEST ORDERABLES Performing Organization Address [facility] de Phone Number [facility] [place] [address] * (ABNORMAL) Fibrinogen (02/17/2024 12:10 PM EDT) [...] MD HEMATOLOGY ORDERABLE S Performing Organization Address [facility] Co de Phone Number [facility] [place] [address] * (ABNORMAL) Thrombin time (02/17/2024 12:10 PM [...] MD HEMATOLOGY ORDERABLE S Performing Organization Address [facility] de Phone Number [facility] [place] [address] * APTT (02/17/2024 12:10 PM EDT) Partial [...] MD HEMATOLOGY ORDERABLE S Performing Organization Address [facility] de Phone Number [facility] [place] [address] * (ABNORMAL) Prothrombin Time (02/17/2024 12:10 PM [...] S [facility] [place] [address] * (ABNORMAL) Hemogram (02/17/2024 12:10 PM EDT) [...] S [facility] [place] [address] * (ABNORMAL) BLOOD GAS 2 ARTERIAL (02/17/2024 [...] [facility] Comment: Noted by instrumentation fitter. Please note: Patients with WBC >100,000 may [...] ORDERABLES [facility] [place] [address] * (ABNORMAL) BLOOD GAS 2 ARTERIAL (02/17/2024 [...] [facility] Comment: Noted by instrumentation fitter. Please note: Patients with WBC >100,000 may [...] OF CARE TEST ORDERABLES Performing Organization Address [facility] Co de Phone Number [facility] [place] [address] * (ABNORMAL) Hemoglobin and Hematocrit, blood (02/17/2024 [...] HEMATOLOGY ORDERABL ES Performing Organization Address City/[facility]/ZIP Co de Phone Number [facility] [place] [address] * (ABNORMAL) Platelet count (02/17/2024 11:04 AM EDT) Pathologist [facility] Platelet 106(L) 145 - 357 x10(3)/mc L [facility] Immature Plt % 1.6 0.0 - 7.4 % [facility] Comment: Limitation of the Immature Platelet Fraction (IPF)-May be less reliable when the platelet count is less than 48m253/uL due to statistical imprecision. The IPF value [...] in a decreased state of production. References: [employer] The Clinical Value of the Immature Platelet Fraction (IPF) in Cell Recovery Document Number 10-1143 03/2011 [employer] The Role of the Immature Platelet Fraction (IPF) in the Differential Diagnosis of Thrombocytopenia, Document [id number] V002/15/14 P014 Blood 02/17/2024 11:0 4 AM EDT 02/17/2024 11:12 AM EDT Narrative Resulting Agency Comment Spec In Lab Hayder Graham MD HEMATOLOGY ORDERABL ES Performing Organization Address City/[facility]/ZIP Co de Phone Number [facility] [place] [address] * (ABNORMAL) Fibrinogen (02/17/2024 11:04 AM EDT) [facility] Fibrinogen 149(L) 200 - 393 mg/dL [facility] [...] ES [facility] [place] [address] * (ABNORMAL) BLOOD GAS 2 ARTERIAL (02/17/2024 [...] City/State/[facility] Co de Phone Number [facility] [place] [address] * (ABNORMAL) BLOOD GAS 2 ARTERIAL (02/17/2024 [...] ORDERABLES [facility] [place] [address] * Surgical Pathology Report (02/17/2024 10:01 AM EDT) Final Diagnosis [id number] ? Location: [facility]; [address] [place] [address] The signing pathologist has (i) examined the relevant preparation(s) for the specimen(s) and (ii) rendered or confirmed the diagnosis(es). . ?Surgical Pathology DIAGNOSIS Aortic valve leaflets, excision: Valve leaflets with myxoid degeneration, nodular fibrosis and dystrophic calcifications. Electronically signed by: ?Livier Montoya MD Verified: ??02/24/2024 13:49 ??Pathologist Performed at: ??-[facility] Dept. of Pathology, [place] [address] Engine Lathe Set Up Operator Tool: Job Brewer MD, FCAP, ??CLIA Certificate: [id number] SPECIMEN(S) SUBMITTED A - Aortic Valve Leaflets, [...] Sections Processing Blocks submitted for decalcification: A1. Dispatcher Radioactive Waste Disposal sections in 1 cassette labeled A1. ??ajw 02/24/2024 1:49 PM EDT [facility] AORTIC STRUCTURE / Unknown 02/17/2024 10:01 AM EDT 02/17/2024 10:01 AM EDT Hayder Graham MD PATHOLOGY/CYTOLOGY ORDERABLES [facility] [place] [address] * Specimen to Pathology (02/17/2024 10:01 AM EDT) AP Specimen 02/17/2024 10:0 1 AM EDT 02/17/2024 10:01 AM EDT Narrative [facility] - 02/17/2024 10:01 AM EDT Specimen requisition ordered. ??Separate Pathology report to follow Hayder Graham MD PATHOLOGY/CYTOLOGY ORDERABLES [facility] [place] [address] * (ABNORMAL) BLOOD GAS 2 ARTERIAL (02/17/2024 [...] ORDERABLES [facility] [place] [address] * (ABNORMAL) BLOOD GAS 2 VENOUS (02/17/2024 9:34 AM EDT) pH, Venous 7.22(Criti marquez) 7.32 - 7.42 [facility] Comment:Noted by instrumentation fitter. PCO2, Venous 43 41 - 51 mmHg [facility] Comment:Noted by instrumentation fitter. PO2, Venous 57(H) 25 - 40 mmHg [facility] Comment:Noted by instrumentation fitter. Bicarbonate, Venous 17.1 mmol/L [facility] Comment:Noted by instrumentation fitter. Base Excess, Venous -10.6 mmol/L [facility] Comment:Noted by instrumentation fitter. Hgb Blood Gas 11.2(L) 13.7 - 16.5 g/dL [facility] Comment:Noted by instrumentation fitter. Oxyhemoglobin, Venous 86.5 % [facility] Comment:Noted by instrumentation fitter. Carboxyhemoglob in, Venous 0.3 % [facility] Comment: Noted by instrumentation fitter. Nonsmokers: 0.5-1.5% COHB Smokers: Variable, but usually less than 10% Toxic: 20-30% COHB Lethal: Greater than 60% COHB Methemoglobin, Venous 0.0 <=1.5 % [facility] Comment:Noted by instrumentation fitter. Na Whole Blood 156(H) 135 - 145 mmol/L [facility] Comment:Noted by instrumentation fitter. K Whole Blood 5.5(H) 3.5 - 5.0 mmol/L [facility] Comment: Noted by instrumentation fitter. Please note: Patients with WBC >100,000 may have falsely elevated Potassium levels. Contact the Clinical Chemistry Laboratory if there are any questions. ICa Whole Blood 1.03(L) 1.15 - 1.33 mmol/L [facility] Comment: Noted by instrumentation fitter. Note: ??Total bilirubin higher than 20 mg/dL may lead to falsely low ionized calcium. CL Whole Blood 100 98 - 107 mmol/L [facility] Comment:Noted by instrumentation fitter. Gluc Whole Bld 132 65 - 199 mg/dL [facility] Comment: Noted by instrumentation fitter. Diabetes: >=200 mg/dL plus symptoms Lactate WB 1.0 0.5 - 2.2 mmol/L [facility] Comment:Noted by instrumentation fitter. Blood Gas Source Venous [facility] Blood 02/17/2024 9:34 AM EDT 02/17/2024 9:34 AM EDT Hayder Graham MD POINT OF CARE TEST ORDERABLES [facility] [place] [address] * (ABNORMAL) BLOOD GAS 2 ARTERIAL (02/17/2024 [...] OF CARE TEST ORDERABLES Performing Organization Address [facility] de Phone Number [facility] [place] [place] [address] * POCT Glucose (02/17/2024 6:38 AM EDT) Glucose, POC 98 65 - 199 mg/dL [facility] Comment: Supplemental ranges: <140 mg/dL before meals <180 mg/dL all other times of the day Blood 02/17/2024 6:38 AM EDT 02/17/2024 6:38 AM EDT Hayder Graham MD POINT OF CARE TEST ORDERABLES Performing Organization Address [facility] de Phone Number [facility] [place] [address] * Transesophageal Echo/OR (02/17/2024 6:33 AM EDT) [...] guidewire was visualized in the RA via MEMA prior to dilation and cannulation. Vital signs [...] [facility]es[facility] [...] on Sat02/18/24 at 1415, Until Sat02/18/24 at 2013, Rotate IV site every 12 hours to [...] dose on Sat02/17/24 at 1400, Until Discontinued, [place] teeth and / or gums. Scan the CHG vial in the [employer] Q-Care Oral Care Kit from floor stock. Ventilator-associated pneumonia prophylaxis For use in ICU/Critical care locations ONLY. Obtain kit from Floor Stock location. Scan CHG vial in the [employer] Q-Care Oral Care Kit, Routine Given 02/17/2024 [...] at 50% of previous rate. Call housekeeping manager if goal not achieved at maximum [...] PHENYLephrine and/or vasopressin ineffective. Call pager # [phone] if initiated. Titrate to keep systolic blood [...] L/min/M2. Maximum volume 2 L. Call housekeeping manager for additional fluid orders: pager #[phone]. Rate/Dose Verify 02/18/2024 8:00 AM EDT 1 mL/hr 1 mL/hr Rate/Dose Verify 02/18/2024 6:00 AM EDT 1 mL/hr 1 mL/hr Rate/Dose Verify 02/18/2024 4:00 AM EDT 1 mL/hr 1 mL/hr sodium chloride 0.9% infusion 10-30 mL/hr, Intravenous, DAILY PRN, Starting on Sat02/17/24 at 1307, Until Sat02/18/24 at 0835, Side port TKO rate, per [facility] nursing protocol. Rate/Dose Verify 02/17/2024 8:00 PM EDT 30 mL/hr 30 mL/hr Rate/Dose Verify 02/17/2024 6:00 PM EDT 30 mL/hr 30 mL/h r Rate/Dose Verify 02/17/2024 5:00 PM EDT 30 mL/hr 30 mL/h r sodium chloride 0.9% infusion 10-30 mL/hr, Intravenous, DAILY PRN, Starting on Sat02/17/24 at 1307, Until Sat02/18/24 at 0835, Side port TKO rate, per [facility] nrusing protocol. Rate/Dose Verify 02/18/2024 8:00 AM [...] Polo Britton RN)1215 (Given - Provider: Reilly Vincent, COLBY)1708 (Given - Provider: Ingrid Menjivar RN) 0000 (Not Given - Provider: Polo Britton RN - Reason: Patient/family refused)0604 (Given - Provider: Polo Britton RN)1210 (Given - Provider: Mishel Merrill, COLBY)1701 (Given - Provider: Mishel Merrill, COLBY)2324 (Given - Provider: Otis Crook RN) 0430 [...] Menjivar, RN)2056 (Given - Provider: Polo Britton, RN) 0908 (Given - Provider: Mishel Merrill, COLBY)1500 (Given - Provider: Mishel Merrill, RN)2117 (Given - Provider: Otis Crook, COLBY) [...] Routine documented in this encounter Care Teams Tester Electronic Scale Relationship Specialty Start Date End Date Aparna Jordan APRN PCP - General Family Medicine 10/21/23 05/26/24 documented as of this encounter
--- OUTSIDE RECORDS SUMMARY | 2024-11-03 10:15 | XMS_ITS | Encounter Summary ---
Author Organization Formerly [facility], [facility] Address [facility] [place] [address] Care Team Providers Care Marketing Traffic Manager Name Role Phone Gino Vanessa Lane DOTSON Primary Care Provider [phone] Encounter Details Date Type Department Care Team (Late st Contact Info) Description 02/24/2024 Orders Only Cardiac Surgery [place] [id number] Trudi Lester APRN [facility] [place] [address] Social History Tobacco Use Types Packs/Day Years Used Date Smoking Tobacco: Former Cigarettes Smokeless Tobacco: Never Comments:Quit 15 + years ago Alcohol Use Standard Drinks/Week Comments Yes 0 (1 standard drink = 0.6 oz pur e alcohol) rare [facility] Utilities Answer Date Recorded In the past 12 months has e [employer], gas, oil, or water [employer] threatened to shut off services in your [...] PM EST Office Visit Cardiology at [address] [phone] Sheila Johnson APRN [address] [place] [address], [facility] [place] [address] documented as of this encounter Visit Diagnoses Not on filedocumented in this encounter Care Teams Marketing Traffic Manager Relationship Specialty Start Date End Date Vanessa Christian APRN PCP - General Family Medicine 10/21/23 05/26/24 documented as of this encounter
--- OUTSIDE RECORDS SUMMARY | 2024-11-03 10:15 | XMS_ITS | Encounter Summary ---
[facility] Organization [facility] [place] [address] Care Team Providers Care Leasing Machine Tender Name Role Phone Aparna Jordan MAURI Primary Care Provider [phone] Reason for Visit * Auth/Cert (Routine) Specialty [...] [facility]ARD[facility] [place] [address] [facility] Referral ID Status Reason Start Date Expiration Date Visits Re quested Visits Authorized [id number] 1 1 Encounter Details Date Type Department Care Team (Late st Contact Info) Description 02/17/2024 7:30 AM EDT - 02/17/2024 1:26 PM EDT Surgery [place] [id number] Hayder Graham MD [facility] [place] [address] ENDOSCOPIC HARVEST VEIN(S) FOR CABG (WRVU 0.31) [...] 1-2 weeks. Patient to follow up with Boat And Plant Utility Supervisor, Neftali Ernandez MD , in 2 weeks. Patient to follow up with Cardiac Surgeon, Dr. Hayder Graham, with a chest x-ray, EKG, and Echo. Inpatient Provider Contact Information: [facility] Section of Cardiac Surgery [facility] [address] FAX [phone] Discharge Diagnoses (Hospital Problems) Primary Diagnoses: /CAD [...] insufficiency. He has glaucoma. He used to [employer] [place] until about 15 years ago. He has undergone prior herniorrhaphy. 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 Major Procedures/Operations: 02/17/24 s/p avr/cabgx3 CABG x 3 JOSE->LAD SVG->dRCA SVG->OM1 EVH from LLE AVR with a 23 mm Inspiris Bioprosthesis Hospital Course: Karlos Garcia was admitted to [facility] on 02/17/2024 via the Same Day [...] Hayder Graham and/or the Cardiac Surgery Physician Petroleum Terminal Plant Operator Team may be reached at . [...] Please refer to the card with the Palestinian Heart Association Guidelines for more information. You [...] Dr. Hayder Graham. You may use a [place] Track or treadmill but avoid any pulling [...] should resume a low fat, low cholesterol, Palestinian Heart Association Diet. Driving: No driving until [...] while being managed by your PCP and/or Boat And Plant Utility Supervisor. For future medication refills, please refer to your PCP and/or Boat And Plant Utility Supervisor after your discharge from our service. Thank you REMOVE CHEST TUBE SUTURES ON OR AFTER 03/02/24 Home oxygen therapy: N/A Follow up appointments: You should follow up with your PCP, Aparna Jordan APRN, in 1-2 weeks. Our office will schedule an appointment with your Boat And Plant Utility Supervisor, Neftali Ernandez MD , in 2 [...] Future Orders Complete By Expires Echocardiogram Transthoracic [17505 CPT(R)] 03/26/2024 09/25/2024 Process Instructions: Scheduling Instructions: Questions: Where will study be performed?: [facility] Clinics Does the patient have Congenital Heart Disease?: Does patient require sedation?: Sedation rationale: XR Chest PA & Lateral (Generic) [49876 26167 Custom] 03/26/2024 09/25/2024 Process Instructions: Scheduling Instructions: Questions: Portable exam?: Reason for exam and clinical history: s/p avr/cabg Clinical information / jerome questions for radiologist: Stat read required?: Date of injury if applicable: Requested Time: Where will study be performed?: [facility] Radiology Referral to Cardiac Rehab [[id number] Custom] As directed Process Instructions: If no progress note charted, please enter Clinical details in comments. Scheduling Instructions: Questions: My question or request is: s/p AVR/CABG. Cardiac rehab at [facility]. Referral to Home Health [REF34 Custom] As directed Process Instructions: If no progress note charted, please enter Clinical details in comments. Scheduling Instructions: Comments: Please evaluate Karlso Garcia for admission to Home Health. [address] Phone Number: Date of : 1960 Inpatient DOCUMENTATION FOR VNA SERVICES (INCLUDING THOSE PATIENTS WITH MEDICARE COVERAGE REQUIRING HOME VNA SERVICES AND/OR HOSPICE SERVICES) PATIENT'S LOCATION: Karlos Garcia [address] [email or web address] [phone] Agronomist's Name: self/family In discussion with the attending physician, it is certified that this patient is under their care and that they, or a Nurse Practitioner, or Physician Petroleum Terminal Plant Operator who is working directly with them, [...] for services as follows: HOME HEALTH AGENCY: [facility] [address] [place] [id number] RN orders: Cardiopulmonary assessment, incisional assessment, assess [...] issues please call the Cardiology Office at [phone] FOR MEDICARE ONLY: (please delete this section [...] [facility] [address] FAX [phone] Date: 02/24/2024 CC: Aparna Jordan, MAURI Jordan, Aparna Sherman APRN [address] [place] [address] documented in this encounter Discharge Instructions * [...] Hayder Graham and/or the Cardiac Surgery Physician Petroleum Terminal Plant Operator Team may be reached at . [...] Please refer to the card with the Palestinian Heart Association Guidelines for more information. You [...] Dr. Hayder Graham. You may use a [place] Track or treadmill but avoid any pulling [...] should resume a low fat, low cholesterol, Palestinian Heart Association Diet. Driving: No driving until [...] while being managed by your PCP and/or Boat And Plant Utility Supervisor. For future medication refills, please refer to your PCP and/or Boat And Plant Utility Supervisor after your discharge from our service. Thank you REMOVE CHEST TUBE SUTURES ON OR AFTER 03/02/24 Home oxygen therapy: N/A Follow up appointments: You should follow up with your PCP, Aparna Jordan APRN, in 1-2 weeks. Our office will schedule an appointment with your Boat And Plant Utility Supervisor, Neftali Ernandez MD , in 2 [...] 0600 and on the weekends please page [phone]. * Eric Barahona PA - 02/23/2024 9:27 [...] 0600 and on the weekends please page [phone]. * Tifafnie Owens, TECHNICIAN TELECOMMUNICATION SYSTEMS - 02/22/2024 2:48 PM EDT Physical Therapy [...] d/c for 10 days. 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 He drives. He works Precautions/Special Considerations: STERNAL [...] LRAD and supervision Time IN / OUT: 0709-0163 Total Time: 30 minutes; TEFx2 Tiffanie Owens Pager: [phone] Physical Therapy Inpatient Rehabilitation Department * Romeo [...] 0600 and on the weekends please page [phone]. * Kelley Hinson TECHNICIAN TELECOMMUNICATION SYSTEMS - 02/21/2024 10:15 AM EDT Physical Therapy [...] d/c for 10 days. 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 He drives. He works Precautions/Special Considerations: STERNAL [...] LRAD and supervision Time IN / OUT: 1230-1171 Total Time: 25 minutes; TEF 2 Kelley Hinson PTA Pager: [phone] Physical Therapy Inpatient Rehabilitation Department * Louisa [...] 0600 and on the weekends please page [phone]. * Kelley Hinson PTA - 02/20/2024 3:32 [...] at that time Kelley Hinson PTA Pager: [phone] Physical Therapy Inpatient Rehab Department * Louisa [...] 0600 and on the weekends please page [phone]. * Maris Benavides, PT - 02/19/2024 11:22 [...] d/c for 10 days. 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 He drives. He works. Precautions/Special Considerations: STERNAL [...] outlined inthis evaluation. MARIS BENAVIDES, PT Pager: [phone] Physical Therapy Inpatient Rehabilitation Department Time IN / OUT: 1509-2911 Total Time: 38 (eval) minutes; * Antonio [...] 0600 and on the weekends please page [phone]. * Minnie Begum PA - 02/18/2024 8:25 [...] 0600 and on the weekends please page [phone]. * Kim Ha RCP - 02/17/2024 2:25 [...] plan since last visit. Hayder Graham MD [phone] Source Note - Hayder Graham MD - [...] given written informed consent. Hayder Graham MD [phone] * Hayder Graham MD - 02/17/2024 7:00 [...] given written informed consent. Hayder Graham MD [phone] documented in this encounter Miscellaneous Notes * [...] for follow-up Home Health & Hospice, [address] [place] [id number] Cardiac Rehab, [address] [place] [id number] Transportation: family or friend will provide Functional status prior to admission: Independent Home Environment: Others in the home: alone. Current Living Arrangements: home/apartment/condo. Accessibility Concerns:a few steps to enter 1 floor home. Current Functional Ability: Assistive Person and Equipment DME used at home: none DME Needed at Discharge: N/A Patient is insured through: Primary Insurance: [employer] Payor: [facility] / Plan: [facility] PPO / Product Type: *No Product [...] pain managed with scheduled Tylenol. Worked with [employer]. Ambulated in the roque multiple times during [...] HOSPITAL Payor: [facility] / Plan: [facility] PPO / Product Type: *No Product type* / Secondary Insurance: N/A Last Physical Therapy Recommendation: home with home health (Str coming to stay for a week or two upon d/c) with to be determined (owns rolling walker, shower seat) Plan for discharge is: Home w/ Services Outpatient Agency/Support Group Needs: Homecare agency Home Health Services: Physical Therapy, Registered Nurse Agency Referrals: [facility] [address] [place] [address] Transportation: family or friend will provide Barriers to discharge: Discharge planning Plan going forward: Service Care Management will continue to follow and assist with discharge planning and coordination of care as indicated. Anticipated Date of Discharge: 02/22/2024 Rhett Bell RN RN/CM - Cellphone: [phone] Pager: [phone] Covering Service RN/CM * Plan of Care [...] care in [place] must abide by [place] law. The hierarchy [...] (i) The agent with financial power of registered dental assistant or a conservator appointed in accordance with [...] place to sleep or slept in [facility] (including now)?: No In the past 12 months has the [employer], gas, oil, or water [employer] threatened to shut off services in your [...] as: [address] [facility] [address] Physical address: [address] [facility], [address] Social & Family Supports: All names listed [...] HOSPITAL Payor: [facility] / Plan: [facility] PPO / Product Type: *No Product type* / Secondary Insurance: N/A ; Prescription Coverage: Yes Preferred Pharmacy: [id number] [address] [place] Status: Patient is a : No Primary Care Provider confirmed: Aparna Jordan, MAURI [phone] Patient/Caregiver Goals of Treatment: dc to home Potential Needs for Transition of Care: home health care Agency Referrals: I have met with the patient to: discuss discharge planning needs. provide the [facility], Office of Care Management letter from the Sleeve Fixer pertaining to rehab referrals. provide a letter describing our affiliations within the [facility] and educate about their right to choose where referrals are sent. provide a list of Home Health Agencies / Durable Medical Equipment vendors which serve their preferred geographic area. provided patient with [facility] Star Quality Rating handout. They have requested referrals to: [facility] [address] [place] [address] Note routed to a Director Of Marketing And Promotions who will communicate referrals to facilities and [...] Reina Greene RN CM, BSN, CMGT-BC Ext [phone] * Plan of Care - Binta Trinidad [...] Operative Note Patient Name: Karlos Garcia : [id number] MR#: [id number] Case Date: 02/17/2024 Surgeon: Surgeon(s) and Role: * Hayder Graham MD - Primary * Neftali Menon PA - Physician Petroleum Terminal Plant Operator Preoperative diagnosis: CAD Postoperative diagnosis: CAD, [...] Mediastinal and Left pleural Disposition: [facility] Condition: doing well without problems Attestation: Case Date: 02/17/2024 I performed this procedure without the involvement of a resident. HAYDER GRAHAM MD 02/17/2024 * Op Note - Hayder Graham MD - 02/17/2024 8:20 AM EDT [facility] Operative Note Patient Name: Karlos Garcia : [id number] MR#: [id number] Case Date: 02/17/2024 Surgeon: Surgeons and Role: * Hayder Graham MD - Primary * Neftali Menon PA - Physician Petroleum Terminal Plant Operator Preoperative diagnosis: CAD Postoperative diagnosis: CAD, [...] Mediastinal and Left pleural Disposition: [facility] Procedure Description: The patient was brought [...] PM EST Office Visit Cardiology at [address] [address] Sheila Johnson, MAURI [address] [facility], COUNTS INCLUDE 234 BEDS AT THE [facility] [address] Scheduled Orders Name Type Priority Associated Diagnoses [...] 1:40 AM EDT DIFFERENTIAL, AUTOMATED Routine 02/18/20 24 1:40 AM EDT CBC (WITH DIFF) Routine [...] Aortic Valve Open W Cardiopulmonary Bypass Homogrf/Stent (19707) Yes 02/17/2024 7:28 AM EDT CAD Cabg, Artery-Vein, Two (96518) Yes 02/17/2024 7:28 AM EDT CAD Cabg, Arterial, Single (64639) Yes 02/17/2024 7:28 AM EDT CAD Endoscopy W/Video-Asst Vein [place], Cabg (53524) Yes 02/17/2024 7:28 AM EDT CAD POCT [...] CHEMISTRY ORDERABLE S [facility] [place] [address] * (ABNORMAL) Basic Metabolic Panel (non-fasting) (02/23/2024 [...] MD CHEMISTRY ORDERABLES [facility] [place] [address] * Potassium (02/22/2024 4:30 AM EDT) Potassium [...] CHEMISTRY ORDERABLE S [facility] [place] [address] * (ABNORMAL) Basic Metabolic Panel (non-fasting) (02/21/2024 [...] 31 [facility] Comment:Add-on request. Samwilly le too [...] Carpio MD CHEMISTRY ORDERABLES Performing Organization Address City/[facility]/ZIP Co de Phone Number [facility] [place] [address] * Lactate, whole blood, send to lab ([facility]) (02/21/2024 9:45 AM EDT) [facility] Lactate WB 2.0 0.5 - 2.2 mmol/L [facility] Blood 02/21/2024 9:45 AM EDT 02/21/2024 9:52 AM EDT Narrative Resulting Agency Comment Spec In Lab Hayder Graham MD CHEMISTRY ORDERABLE S Performing Organization Address [place]/[facility] Co de Phone Number [facility] [place] [address] * (ABNORMAL) Hepatic Function Panel (02/21/2024 9:45 AM EDT) [facility] Protein, Total 5.7(L) 6.1 - 8.0 g/dL [...] CHEMISTRY ORDERABLE S [facility] [place] [address] * Lipase (02/21/2024 9:45 AM EDT) Lipase 56 0 - 60 unit/L [facility] Blood 02/21/2024 9:45 AM EDT 02/21/2024 9:52 AM EDT Narrative Resulting Agency Comment Spec In Lab Hayder Graham MD CHEMISTRY ORDERABLE S Performing Organization Address City/[facility]/ZIP Co de Phone Number [facility] [place] [address] * Amylase (02/21/2024 9:45 AM EDT) Amylase 69 28 - 100 unit/L [facility] Blood 02/21/2024 9:45 AM EDT 02/21/2024 9:52 AM EDT Narrative Resulting Agency Comment Spec In Lab Hayder Graham MD CHEMISTRY ORDERABLE S Performing Organization Address [place]/[facility] Co de Phone Number [facility] [place] [address] * Potassium (02/21/2024 3:08 AM EDT) Potassium [...] Organization Address City/[facility]/ZIP Co de Phone Number [facility] [place] [address] * XR Chest PA & Lateral (Generic) (02/20/2024 10:19 AM EDT) WORKSTATION ID [id number] RAD Anatomical Region Laterality Modality Chest N/A Digital Radiogra phy Impressions 02/20/2024 1:11 PM EDT Small pleural effusions. No pneumothorax Thank you for letting us participate in the care of this patient. ??If you are a health care provider and have any questions regarding this report, please contact the number below. ??For patients who have questions please contact the health dog daycare provider that requested your imaging first. ? Electronically signed by: Rogerio Cruz MD, [facility] ??([phone]), at 02/20/2024 1:11 PM Narrative 02/20/2024 1:11 PM EDT EXAMINATION: XR CHEST PA AND LATERAL (GENERIC) CLINICAL HISTORY: s/p AVR/CABGx3 TECHNIQUE: PA and lateral views of the chest COMPARISON: 02/17/2024 FINDINGS: Support devices: Interval removal of Milan-Kaila catheter, endotracheal tube and mediastinal chest tubes The cardiac silhouette is stable status post median sternotomy, CABG and aortic valve replacement. There are small pleural effusions. No pneumothorax. Procedure Note Rogerio Cruz MD - 02/20/2024 EXAMINATION: XR CHEST PA AND LATERAL (GENERIC) CLINICAL HISTORY: s/p AVR/CABGx3 TECHNIQUE: PA and lateral views of the chest COMPARISON: 02/17/2024 FINDINGS: Support devices: Interval removal of Milan-Kaila catheter, endotracheal tubeand mediastinal chest tubes The [...] patients who have questions please contactthe health dog daycare provider that requested your imaging first. Hayder Graham MD IMG DX ORDERABLES * Scan, Peripheral Blood (02/20/2024 4:23 AM EDT) Pathologist [facility] Plat estimate Decreased [facility] RBC Morphology Normal [facility] Blood 02/20/2024 4:23 AM EDT 02/20/2024 4:42 AM EDT Narrative Resulting Agency Comment Spec In Lab Minnie FRENCH HEMATOLOGY CECILIO ALEMAN [facility] [place] [address] * (ABNORMAL) Differential, Automated (02/20/2024 4:23 AM EDT) Pathologist [facility] Neutrophil % 81.7 % [facility] Neutrophil Absolute 10.37(H) 1.70 - 6.10 x10(3)/mc L [facility] Lymph % 7.4 % [facility] Lymphocytes Abs 0.9 0.9 - 3.2 x10(3)/mc L [facility] Monocyte % 9.7 % [facility] Monocyte Abs 1.2(H) 0.3 - 0.9 x10(3)/mc L [facility] Eos % 0.1 % MOUNT [...] HEMATOLOGY CECILIO ALEMAN [facility] [place] [address] * (ABNORMAL) Hemogram (02/20/2024 4:23 AM EDT) [...] HEMATOLOGY CECILIO ALEMAN [facility] [place] [address] * (ABNORMAL) Basic Metabolic Panel (non-fasting) (02/20/2024 4:23 AM EDT) Glucose 113 65 - 199 mg/dL [facility] Comment:Diabetes: >=200 mg/d L plus symptoms Blood Urea Nitrogen 20 10 - 20 mg/dL [facility] Comment:result rechecked-OH Creatinine 0.71(L) 0.80 - 1.50 mg/dL MOUNT [...] MD CHEMISTRY ORDERABLE S Performing Organization Address [place]/[facility] Co de Phone Number [facility] [place] [address] * Potassium (02/19/2024 3:57 AM EDT) Potassium [...] MD CHEMISTRY ORDERABLE S Performing Organization Address [place]/[facility]/ZIP Co de Phone Number [facility] [place] [address] * POCT Glucose (02/18/2024 8:24 AM EDT) Glucose, POC 157 65 - 199 mg/dL [facility] Comment: Supplemental ranges: <140 mg/dL before meals <180 mg/dL all other times of the day Blood 02/18/2024 8:24 AM EDT 02/18/2024 8:24 AM EDT Hayder Graham MD POINT OF CARE TEST ORDERABLES [facility] [place] [address] * Scan, Peripheral Blood (02/18/2024 1:40 AM EDT) Plat estimate Decreased [facility] RBC Morphology Normal [facility] Blood 02/18/2024 1:40 AM EDT 02/18/2024 1:56 AM EDT Narrative Resulting Agency Comment Spec In Lab Neftali FRENCH HEMATOLOGY ORDER OLE Performing Organization Address City/[facility]/ZIP Co de Phone Number [facility] [place] [address] * (ABNORMAL) Differential, Automated (02/18/2024 1:40 AM EDT) [facility] Neutrophil % 87.1 % [facility] Neutrophil Absolute 15.03(H) 1.70 - 6.10 x10(3)/mc L [facility] Lymph % 3.0 % [facility] Lymphocytes Abs 0.5(L) 0.9 - 3.2 x10(3)/mc L [facility] Monocyte % 9.1 % [facility] Monocyte Abs 1.6(H) 0.3 - 0.9 x10(3)/mc L [facility] Eos % 0.0 % MOUNT [...] HEMATOLOGY ORDER OLE [facility] [place] [address] * (ABNORMAL) Hemogram (02/18/2024 1:40 AM EDT) [...] HEMATOLOGY ORDER OLE [facility] [place] [address] * (ABNORMAL) Basic Metabolic Panel (non-fasting) (02/18/2024 [...] CHEMISTRY ORDERABLE S [facility] [place] [address] * (ABNORMAL) Troponin (02/18/2024 1:40 AM EDT) [...] in the [facility] Test Catalog Troponin - [facility] Test Catalog Reference: Fourth [place] Definition of Myocardial Infarction. Journal of the [place] College of Cardiology 2018;72:1258-8835 Blood 02/18/2024 1:40 AM EDT 02/18/2024 1:56 AM EDT Narrative Resulting Agency Comment Spec In Lab Hayder Graham MD CHEMISTRY ORDERABLE S Performing Organization Address [place]/[facility] Co de Phone Number [facility] [place] [address] * POCT Glucose (02/17/2024 8:13 PM EDT) Glucose, POC 142 65 - 199 mg/dL [facility] Comment: Supplemental ranges: <140 mg/dL before meals <180 mg/dL all other times of the day Blood 02/17/2024 8:13 PM EDT 02/17/2024 8:13 PM EDT Hayder Graham MD POINT OF CARE TEST ORDERABLES Performing Organization Address [place]/[facility] Co de Phone Number [facility] [place] [address] * POCT Glucose (02/17/2024 5:42 PM EDT) Glucose, POC 160 65 - 199 mg/dL [facility] Comment: Supplemental ranges: <140 mg/dL before meals <180 mg/dL all other times of the day Blood 02/17/2024 5:42 PM EDT 02/17/2024 5:42 PM EDT Hayder Graham MD POINT OF CARE TEST ORDERABLES Performing Organization Address [place]/[facility]/ZIP Co de Phone Number [facility] [place] [address] * Hemoglobin (02/17/2024 5:42 PM EDT) Hemoglobin 13.7 13.7 - 16.5 g/dL [facility] Blood 02/17/2024 5:42 PM EDT 02/17/2024 6:10 PM EDT Narrative Resulting Agency Comment Spec In Lab Hayder Graham MD HEMATOLOGY ORDERABL ES Performing Organization Address [place]/[facility] Co de Phone Number [facility] [place] [address] * Potassium (02/17/2024 5:42 PM EDT) Potassium [...] MD CHEMISTRY ORDERABLE S Performing Organization Address [place]/[facility] Co de Phone Number [facility] [place] [address] * (ABNORMAL) BLOOD GAS 2 ARTERIAL (02/17/2024 [...] [facility] FIO2 Art 40 % [facility] PF Ratio Art 195 [facility] Blood 02/17/2024 4:18 PM EDT 02/17/2024 4:18 PM EDT Hayder Graham MD POINT OF CARE TEST ORDERABLES Performing Organization Address City/State/[facility] Co de Phone Number [facility] [place] [address] * XR Chest One View (02/17/2024 1:44 PM EDT) [employer] WORKSTATION ID [id number] RAD Anatomical Region Laterality Modality Chest N/A Digital Radiogra phy Impressions 02/17/2024 2:12 PM EDT 1. ??No definite pleural fluid collection or pneumothorax. 2. ??Right IJ Milan-Kaila catheter tip terminates in a descending branch of the right pulmonary artery. Suggest catheter retraction. 3. ??Additional support lines and tubes as above. Thank you for letting us participate in the care of this patient. ??If you are a health care provider and have any questions regarding this report, please contact the number below. ??For patients who have questions please contact the health dog daycare provider that requested your imaging first. ? Electronically signed by: Denzel Hankins MD, [facility] ??([phone]), at 02/17/2024 2:12 PM Narrative 02/17/2024 2:12 PM EDT EXAMINATION: XR CHEST ONE VIEW CLINICAL HISTORY: s/p avr/cabg eval effusions TECHNIQUE: 1 view of the chest COMPARISON: Chest x-ray 01/09/2024, chest CT 02/03/2024 FINDINGS: ET tube tip terminates 5.2 cm above the carlos. Right IJ Milan-Kaila catheter tip terminates in a descending branch [...] 5.2 cm above the carlos. Right IJ Milan-Ganzcatheter tip terminates in a descending branch of [...] fluid collection or pneumothorax. 2. Right IJ Milan-Kaila catheter tip terminates in a descending branch ofthe right pulmonary artery. Suggest catheter retraction. 3. Additional support lines and tubes as above. Thank you for letting us participate in the care of this patient. If youare a health care provider and have any questions regarding this report,please contact the number below. For patients who have questions please contactthe health dog daycare provider that requested your imaging first. Electronically signed by: Denzel Hankins MD, [facility]([phone]), at 02/17/2024 2:12 PM Hayder Graham MD [...] [facility] FIO2 Art 100 % [facility] PF Ratio Art 320 [facility] Blood 02/17/2024 1:31 PM EDT 02/17/2024 1:31 PM EDT Hayder Graham MD POINT OF CARE TEST ORDERABLES [facility] [place] [address] * (ABNORMAL) Coox2 (02/17/2024 1:21 PM EDT) [...] CARE TEST ORDERABLES [facility] [place] [address] * (ABNORMAL) BLOOD GAS 2 ARTERIAL (02/17/2024 [...] OF CARE TEST ORDERABLES Performing Organization Address [place]/[facility] Co de Phone Number [facility] [place] [address] * (ABNORMAL) Fibrinogen (02/17/2024 12:10 PM EDT) [...] MD HEMATOLOGY ORDERABLE S Performing Organization Address [place]/[facility] Co de Phone Number [facility] [place] [address] * (ABNORMAL) Thrombin time (02/17/2024 12:10 PM [...] MD HEMATOLOGY ORDERABLE S Performing Organization Address [place]/[facility] Co de Phone Number [facility] [place] [address] * APTT (02/17/2024 12:10 PM EDT) Partial [...] MD HEMATOLOGY ORDERABLE S Performing Organization Address [place]/[facility]/ZIP Co de Phone Number [facility] [place] [address] * (ABNORMAL) Prothrombin Time (02/17/2024 12:10 PM [...] HEMATOLOGY ORDERABLE S [facility] [place] [address] * (ABNORMAL) Hemogram (02/17/2024 12:10 PM EDT) [...] HEMATOLOGY ORDERABLE S [facility] [place] [address] * (ABNORMAL) BLOOD GAS 2 ARTERIAL (02/17/2024 [...] [facility] Comment: Noted by biomedical instrument [...] CARE TEST ORDERABLES [facility] [place] [address] * (ABNORMAL) BLOOD GAS 2 [...] [facility] Comment: Noted by biomedical instrument [...] OF CARE TEST ORDERABLES Performing Organization Address [place]/[facility]/ZIP Co de Phone Number [facility] [place] [address] * (ABNORMAL) Hemoglobin and Hematocrit, blood (02/17/2024 [...] Organization Address City/[facility]/ZIP Co de Phone Number [facility] [place] [address] * (ABNORMAL) Platelet count (02/17/2024 11:04 AM EDT) Platelet 106(L) 145 - 357 x10(3)/mc L [facility] Immature Plt % 1.6 0.0 - 7.4 % [facility] Comment: Limitation of the Immature Platelet Fraction (IPF)-May be less reliable when the platelet count is less than 04u724/uL due to statistical imprecision. The IPF value [...] in a decreased state of production. References: [employer] The Clinical Value of the Immature Platelet Fraction (IPF) in Cell Recovery Document Number [id number] 03/2011 [employer] The Role of the Immature Platelet Fraction (IPF) in the Differential Diagnosis of Thrombocytopenia, Document [id number] V002/15/14 P002/17 Blood 02/17/2024 11:0 4 AM EDT 02/17/2024 11:12 AM EDT Narrative Resulting Agency Comment Spec In Lab Hayder Graham MD HEMATOLOGY ORDERABL ES Performing Organization Address City/State/[facility] Co de Phone Number [facility] [place] [address] * (ABNORMAL) Fibrinogen (02/17/2024 11:04 AM EDT) [...] HEMATOLOGY ORDERABL ES [facility] [place] [address] * (ABNORMAL) BLOOD GAS 2 ARTERIAL (02/17/2024 [...] CARE TEST ORDERABLES [facility] [place] [address] * (ABNORMAL) BLOOD GAS 2 ARTERIAL (02/17/2024 [...] OF CARE TEST ORDERABLES Performing Organization Address City/State/[facility] Co de Phone Number [facility] [place] [address] * Surgical Pathology Report (02/17/2024 10:01 AM EDT) Final Diagnosis [id number] ? Location: [facility]; [facility]; The signing pathologist has (i) examined the relevant preparation(s) for the specimen(s) and (ii) rendered or confirmed the diagnosis(es). . ?Surgical Pathology DIAGNOSIS Aortic valve leaflets, excision: Valve leaflets with myxoid degeneration, nodular fibrosis and dystrophic calcifications. Electronically signed by: ?Lindsay FERNANDEZ, Livier oGnzalez Verified: ??02/24/2024 13:49 ??Pathologist Performed at: ??-[facility] Dept. of Pathology, [place] [address] Sleeve Fixer: Job Brewer MD, FCAP, ??CLIA Certificate: [id number] SPECIMEN(S) SUBMITTED A - Aortic Valve Leaflets, [...] Sections Processing Blocks submitted for decalcification: A1. Audio Technician sections in 1 cassette labeled A1. ??ajw 02/24/2024 1:49 PM EDT [facility] AORTIC STRUCTURE / Unknown 02/17/2024 10:01 AM EDT 02/17/2024 10:01 AM EDT Hayder Graham MD PATHOLOGY/CYTOLOGY ORDERABLES Performing Organization Address City/[facility]/ZIP Co de Phone Number [facility] [place] [address] * Specimen to Pathology (02/17/2024 10:01 AM EDT) AP Specimen 02/17/2024 10:0 1 AM EDT 02/17/2024 10:01 AM EDT Narrative [facility] - 02/17/2024 10:01 AM EDT Specimen requisition ordered. ??Separate Pathology report to follow Hayder Graham MD PATHOLOGY/CYTOLOGY ORDERABLES Performing Organization Address City/[facility]/ZIP Co de Phone Number [facility] [place] [address] * (ABNORMAL) BLOOD GAS 2 ARTERIAL (02/17/2024 [...] CARE TEST ORDERABLES [facility] [place] [address] * (ABNORMAL) BLOOD GAS 2 VENOUS (02/17/2024 9:34 AM EDT) pH, Venous 7.22(Criti marquez) 7.32 - 7.42 [facility] Comment:Noted by biomedical instrument technician. PCO2, Venous 43 41 - 51 mmHg [facility] Comment:Noted by biomedical instrument technician. PO2, Venous 57(H) 25 - 40 mmHg [facility] Comment:Noted by biomedical instrument technician. Bicarbonate, Venous 17.1 mmol/L [facility] Comment:Noted by biomedical instrument technician. Base Excess, Venous -10.6 mmol/L [facility] Comment:Noted by biomedical instrument technician. Hgb Blood Gas 11.2(L) 13.7 - 16.5 g/dL [facility] Comment:Noted by biomedical instrument technician. Oxyhemoglobin, Venous 86.5 % [facility] Comment:Noted by biomedical instrument technician. Carboxyhemoglob in, Venous 0.3 % [facility] Comment: Noted by biomedical instrument technician. Nonsmokers: 0.5-1.5% COHB Smokers: Variable, but usually less than 10% Toxic: 20-30% COHB Lethal: Greater than 60% COHB Methemoglobin, Venous 0.0 <=1.5 % [facility] Comment:Noted by biomedical instrument technician. Na Whole Blood 156(H) 135 - 145 mmol/L [facility] Comment:Noted by biomedical instrument technician. K Whole Blood 5.5(H) 3.5 - 5.0 mmol/L [facility] Comment: Noted by biomedical instrument technician. Please note: Patients with WBC >100,000 may have falsely elevated Potassium levels. Contact the Clinical Chemistry Laboratory if there are any questions. ICa Whole Blood 1.03(L) 1.15 - 1.33 mmol/L [facility] Comment: Noted by biomedical instrument technician. Note: ??Total bilirubin higher than 20 mg/dL may lead to falsely low ionized calcium. CL Whole Blood 100 98 - 107 mmol/L [facility] Comment:Noted by biomedical instrument technician. Gluc Whole Bld 132 65 - 199 mg/dL [facility] Comment: Noted by biomedical instrument technician. Diabetes: >=200 mg/dL plus symptoms Lactate WB 1.0 0.5 - 2.2 mmol/L [facility] Comment:Noted by biomedical instrument technician. Blood Gas Source Venous [facility] Blood 02/17/2024 9:34 AM EDT 02/17/2024 9:34 AM EDT Hayder Graham MD POINT OF CARE TEST ORDERABLES [facility] [place] [address] * (ABNORMAL) BLOOD GAS 2 ARTERIAL (02/17/2024 [...] OF CARE TEST ORDERABLES Performing Organization Address [place]/[facility] Co de Phone Number [facility] [place] [address] * POCT Glucose (02/17/2024 6:38 AM EDT) Glucose, POC 98 65 - 199 mg/dL [facility] Comment: Supplemental ranges: <140 mg/dL before meals <180 mg/dL all other times of the day Blood 02/17/2024 6:38 AM EDT 02/17/2024 6:38 AM EDT Hayder Graham MD POINT OF CARE TEST ORDERABLES Performing Organization Address [place]/[facility] Co de Phone Number [facility] [place] [address] * Transesophageal Echo/OR (02/17/2024 6:33 AM EDT) [...] Merrill RN)211 (Given - Provider: Otis Crook, COLBY) 0836 (Given - Provider: Jazlyn Maldonado, COLBY) lidocaine (Lidoderm) 5% patch 1 patch 1 patch, Transdermal, Administer over 12 Hours, DAILY, First dose on Sat02/18/24 at 1445, Until Discontinued, Apply patch(es) for 12 hours, and then remove for 12 hours., Routine 821 (Patch Applied - Provider: Reilly Vincent RN)2021 [...] Vincent RN)1000 (Stopped - Provider: Ingrid Menjivar, RN)1001 (New Bag - Provider: Ingrid Menjivar, RN)1201 [...] Britton RN)0908 (Given - Provider: Mishel Merrill, COLBY)170 (Given - Provider: Mishel Merrill, RN)2325 (Given [...] Routine documented in this encounter Care Teams Leasing Machine Tender Relationship Specialty Start Date End Date Aparna Jordan APRN PCP - General Family Medicine 10/21/23 05/26/24 documented as of this encounter
--- OUTSIDE RECORDS SUMMARY | 2024-11-03 10:16 | XMS_ITS | Encounter Summary ---
Author Organization [facility] Ivana [facility] [place] [address] Care Team Providers Care Laminator Preforms Name Role Phone Vanessa Christian MAURI Primary Care Provider [phone] Reason for Visit * Auth/Cert (Routine) Specialty [...] GRAFT (WRVU 7.93) Zak Farmer MD [facility] [place] [address] [facility] Referral ID Status Reason Start Date Expiration Date Visits Re quested Visits Authorized [id number] 1 1 Encounter Details Date Type Department Care Team (Late st Contact Info) Description 02/17/2024 7:35 AM EDT Anesthesia Event Main Operating Room [facility] [place] [id number] Roman York MD [facility] [address] Anesthesia Record Procedure Summary Procedure Name Responsible [...] by Sadiq Woo RN PIV 02/17/24; 0715; qnmn-sdx-cfssey catheter system; 18 gauge; cephalic vein (lateral [...] th e electric, gas, oil, or water [employer] threatened to shut off services in your [...] / Location: [facility] OR [address] [place] [address] MAIN OR Anesthesia Start: 734 Anesthesia Stop: [...] shown include unfiled device data. Patient Location: [facility] Level of Consciousness: Sedated (Pharmacologic/Intentional) Pain [...] 08/14/2023 ??? Nevus of face 09/26/2023 Right rastafarian No past surgical history on file. Social [...] PM EST Office Visit Cardiology at [address] [place] [address] Sheila Johnson, ACTIVE DIRECTORY ENGINEER [address] [facility], [place] [address] documented as of this encounter Visit Diagnoses [...] mg documented in this encounter Care Teams Laminator Preforms Relationship Specialty Start Date End Date Vanessa Christian APRN PCP - General Family Medicine 10/21/23 05/26/24 documented as of this encounter
--- OUTSIDE RECORDS SUMMARY | 2024-11-03 10:16 | XMS_ITS | Encounter Summary ---
[facility] [place] [address] Care Team Providers Care Architectural Technician Name Role Phone Vanessa Christian APRN Primary Care Provider [phone] Encounter Details Date Type Department Care Team [...] PM EST Office Visit Cardiology at [address] [place] [address] Sheila Johnson APRN [address] [facility] [place] [place] [address] documented as of this encounter Visit Diagnoses Not on filedocumented in this encounter Care Teams Architectural Technician Relationship Specialty Start Date End Date Vanessa Christian APRN PCP - General Family Medicine 10/21/23 05/26/24 documented as of this encounter
--- OUTSIDE RECORDS SUMMARY | 2024-11-03 10:16 | XMS_ITS | Encounter Summary ---
Author Organization [facility] [place] [address] Care Team Providers Care Racking Technician Name Role Phone Vanessa Christian MAURI Primary Care Provider [phone] Reason for Visit * Auth/Cert (Routine) Specialty [...] MD [facility] [place] [place] [address] [facility] Referral ID Status Reason Start Date Expiration Date Visits Re quested Visits Authorized [id number] 1 1 Encounter Details Date Type Department Care Team (Latest Contact Info) Description 02/03/2024 8:06 AM EDT - 02/03/2024 2:54 PM EDT Hospital Encounter Tube [place] [address] Rima Dickinson MD [facility] [place] [place] [address] Screening for cardiovascular condition; Aortic valve stenosis, [...] lbs Follow-up Visits Follow up with your cash on delivery clerk in 2-4 weeks Access Site 'Black and Blue' and tenderness is expected during the first week Call if you noted a mass (lump) greater than the size of a ellis Call Office with any Questions and if you have any of the following Clarence Lane M.D Interventional Departmental Shipping Clerk Dragline Mechanic #: [phone] * Attachments The following attachments cannot be sent through Care Everywhere. * CAD (Coronary Artery Disease): General Info (Wolof) * Coronary Angiogram: Post-op (Wolof) documented in this encounter Medications at Time [...] Lane MD - 02/03/2024 11:48 AM EDT [facility] Interventional Cardiology Adult Pre-Procedure H&P Update: Cardiac Catheterization Karlos Anthony [id number] 1960 Chief Complaint: Aortic stenosis HPI: Mr. [...] is inthe chart Clarence Lane MD Interventional Departmental Shipping Clerk 02/03/24 11:48 AM documented in this encounter Miscellaneous Notes * Brief Op Note - Clarence Lane MD - 02/03/2024 12:51 PM EDT Preliminary Cardiac Catheterization Procedure Note: Patient Name: Karlos Anthony : [id number] MR#: [id number] Case Date: 02/03/2024 Dragline Mechanic: Surgeon(s) and Role: * Saira Lua MD [...] 3:00 PM EST Office Visit Cardiology at [address] [place] [phone] Sheila Johnson APRN [address] [facility] [place] [address] Scheduled Orders Name Type Priority Associated Diagnoses [...] ? Cardiac Catheterization/Intervention Report ? Patient Name: Raj, Karlos ? Procedure Date: 02/03/2024 ? A #: [id number] ? Primary Physician: Mogadam, Emad ? Case #: [id number] ? File Name: [id number] ? Catheterization Order Number: [id number] ? [facility] ? Final Report [place], [place] ? Patient Name: ? Karlos Patenaude ? ID#: ?[id number] ? : ?1960 ? Procedure Date: ? February 03, 2024 ? Case #: ? [id number] ? Room: ? 5 ? Case Physician: ? Emad Chanell, M.D. ? Start: ?12:29 ?Fellow: ? Clarence N beamarilisa, M.D. ? Admission: ??02/03/2024 ? Referring Physician: ??Samantha De La FuenteD. ? Procedures: ?* Coronary Angiography ? History [...] Karlos Anthony Procedure Date: 02/03/2024 A #: [id number] Primary Physician: Saira Lua Case #: [id number] File Name: [id number] Catheterization Order Number: [id number] [facility] FinalReport [place], [place] Patient Name: Karlos Anthony ID#:[id number] :1960 Procedure Date: February 03, 2024 Case #: [id number] Room: 5 Case Physician: Saira Lua M.D. Start: 12:29 Fellow: Clarence Lane M.D. Admission:02/03/2024 Referring Physician: Zka Farmer M.D. Procedures: * Coronary Angiography History [...] (Bezet) 372 ms MUSE SYSTEM Calculated P Howe 59 degrees MUSE SYSTEM Calculated R Howe 34 degrees MUSE SYSTEM Calculated T Howe 63 degrees MUSE SYSTEM INTERPRETATION Sinus bradycardia [...] MD) documented in this encounter Care Teams Racking Technician Relationship Specialty Start Date End Date Vanessa Christian APRN PCP - General Family Medicine 10/21/23 05/26/24 documented as of this encounter
--- OUTSIDE RECORDS SUMMARY | 2024-11-03 10:16 | XMS_ITS | Encounter Summary ---
Author Organization [facility] Address [facility] Ivana linare[place]ileen [place] [id number] Care Team Providers Care Director Community Organization Name Role Phone Vanessa Christian MAURI Primary Care Provider [phone] Reason for Referral * Consultation (Routine) - Closed Specialty Diagnoses / Procedures Referred By Contac t Referred To Contact Cardiac Surgery Diagnoses Nonrheumatic aortic valve stenosis significant - TAVR ( defers to Card Surg d/t age) Errol Loya MD [facility] [place] [address] Zak Farmer MD [facility] [place] [address] Referral ID Status Reason Start Date Expiration Date V isits Requested Visits Authorized [id number] Closed Consult, Test & Treat 10/21/2023 10/20/2024 1 1 Reason for Visit * Reason Comments Chest Pain Shortness of Breath Aortic Stenosis Encounter Details Date Type Department Care Team (Late st Contact Info) Description 10/21/2023 1:20 PM EST Office Visit Cardiology at [address] [address] Errol Loya MD [facility] [address] Nonrheumatic aortic valve stenosis Social History Tobacco [...] Problem List Diagnosis Aortic stenosis 12/2022 TTE ([facility]): VITA 0.8-0.9 cm2 (MG 28 mmHg, DOI 3.6 m/s, SVI 35 cc/m2). Trace regurgitation. Normal bi-v s/f, no other valve findings Gastroesophageal reflux Nevus of face Right catholic Hypertension HLD (hyperlipidemia) MEDICATIONS: Current Outpatient Medications [...] the meantime will refer to T at [facility] the meantime will refer to T at [facility] [...] PM EST Office Visit Cardiology at [address] [address] [address]N [address] [facility] [place] [address] Scheduled Referrals Name Type Priority Associated Diagnoses Order Schedule Amb Referral to Structural Heart Outpatient Referral Routine Nonrheumatic aortic valve stenosis Ordered: 10/21/2023 documented as of this encounter Visit Diagnoses Diagnosis Nonrheumatic aortic valve stenosis Aortic valve disorders documented in this encounter Care Teams Director Community Organization Relationship Specialty Start Date End Date Vanessa Christian APRN PCP - General Family Medicine 10/21/23 05/26/24 documented as of this encounter
--- OUTSIDE RECORDS SUMMARY | 2024-11-03 10:16 | XMS_ITS | Encounter Summary ---
Author Organization [facility] Address [facility] [place] [address] Care Team Providers Care Data Collection Interviewer Name Role Phone Vanessa Christian COMPUTER AIDED DESIGN DRAFTER Primary Care Provider [phone] Reason for Referral * Diagnostic Test (Routine) - Closed Specialty Diagnoses / Procedures Referred By Contac t Referred To Contact Radiology Diagnoses Nonrheumatic aortic valve stenosis Procedures CT Chest wo Contrast (Generic) Louisa Reid PA [facility] CARDIOTHORACIC [place] [address] [facility] [address] [place] [address] Referral ID Status Reason Start Date Expiration Date V isits Requested Visits Authorized [id number] Closed Specialty Service Requested 01/10/2024 07/11/2025 1 1 Encounter Details Date Type Department Care Team (Late st Contact Info) Description 01/09/2024 [place] [address] Zak Farmer MD [facility] CARDIOTHORACIC [place] [address] Nonrheumatic aortic valve stenosis Social History Tobacco [...] PM EST Office Visit Cardiology at [address] [address] Sheila Johnson APRN [address] [facility] [place] [place] [address] documented as of this encounter Results * CT Chest wo Contrast (Generic) (02/03/2024 7:44 AM EDT) [employer] Signature WORKSTATION ID [id number] RAD Anatomical Region Laterality Modality Chest Computed [...] questions please contact the health child care specialist that requested your imaging first. ? Electronically signed by: Rogerio Wright MD, [facility] ([phone]), at 02/03/2024 10:00 AM Narrative 02/03/2024 10:00 [...] nodule along the minor fissure (series 302 [id number]) and a 8 mm right lower lobe [...] have questions please contactthe health child care specialist that requested your imaging first. Zak Farmer MD IMG CT ORDERABLES documented in this encounter Visit Diagnoses Diagnosis Nonrheumatic aortic valve stenosis Aortic valve disorders Nonrheumatic aortic valve stenosis Aortic valve disorders documented in this encounter Care Teams Data Collection Interviewer Relationship Specialty Start Date End Date Vanessa Christian APRN PCP - General Family Medicine 10/21/23 05/26/24 documented as of this encounter
--- OUTSIDE RECORDS SUMMARY | 2024-11-03 10:16 | XMS_ITS | Encounter Summary ---
Author Organization [facility] Address [facility] [place] [address] Care Team Providers Care Weave Defect Charting Clerk Name Role Phone Vanessa Christian MAURI Primary Care Provider [phone] Encounter Details Date Type Department Care Team (Latest Contact Info) Description 01/09/2024 3:02 PM EDT - 01/09/2024 11:59 PM EDT Hospital Encounter XRay at [address] [place] [address] [facility] [place] [address] Nonrheumatic aortic valve stenosis Discharge Disposition: Home Social History Tobacco Use Types Packs/Day Years Used Date Smoking Tobacco: Former Cigarettes Smokeless Tobacco: Never Comments:Quit 15 + years ago Alcohol Use Standard Drinks/Week Comments Yes 0 (1 standard drink = 0.6 oz pur e alcohol) rare [facility] Inpatient Questions Answer Date Recorded Prevent [...] 3:00 PM EST Office Visit Cardiology at [place] [address] [place] [address] Sheila Johnson APRN 580 [facility], [email or web address] [place] [address] documented as of this encounter Procedures Procedure [...] business analyst that requested your imaging first. Zak Farmer MD IMG DX ORDERABLES documented in this encounter Visit Diagnoses Diagnosis Nonrheumatic aortic valve stenosis Aortic valve disorders documented in this encounter Care Teams Weave Defect Charting Clerk Relationship Specialty Start Date End Date Vanessa Christian APRN PCP - General Family Medicine 10/21/23 05/26/24 documented as of this encounter
--- OUTSIDE RECORDS SUMMARY | 2024-11-03 10:16 | XMS_ITS | Encounter Summary ---
Author Organization [facility] [place] [address] Care Team Providers Care Montessori Lead Teacher Name Role Phone Victor M Lafleur MD Primary Care Provider [phone] Encounter Details Date Type Department Care Team (Late st Contact Info) Description 09/26/2023 Abstract Cardiology at [address] [address] Karen Billy, RN Nonrheumatic aortic [...] PM EST Office Visit Cardiology at [address] [address] Sheila Johnson APRN [address] [place] [address], [facility] CARDIOLOGY [place], [place] [id number] documented as of this encounter Visit Diagnoses Diagnosis Nonrheumatic aortic valve stenosis Aortic valve disorders Nevus of face Benign neoplasm of skin of other and unspecified parts of face documented in this encounter Care Teams Montessori Lead Teacher Relationship Specialty Start Date End Date Victor M Lafleur MD PCP - General 10/02/13 10/20/23 documented as of this encounter
--- OUTSIDE RECORDS SUMMARY | 2024-11-03 10:16 | XMS_ITS | Encounter Summary ---
Author Organization [facility]ana [facility] [place] [place] [address] Care Team Providers Care Lodging Facilities Attendant Name Role Phone Vanessa Christian Lane DOTSON Primary Care Provider [phone] Encounter Details Date Type Department Care Team (Latest Contact Info) Description 01/09/2024 3:00 PM EDT Laboratory [place] [phone] Nonrheumatic aortic valve stenosis Social History Tobacco [...] 3:00 PM EST Office Visit Cardiology at [place] [address] [place] [phone] Sheila Johnson APRN 580 [facility], SHERI [place] [address] documented as of this encounter Procedures Procedure Name Priority Date/Time Associated Diagnosis Comments ABORH RECHECK STATUS Routine 01/09/2024 2:58 PM EDT HEMOGRAM Routine 01/09/2024 2:58 PM EDT Nonrheumatic aortic valve stenosis DIFFERENTIAL, AUTOMATED Routine 01/09/2024 2:58 PM EDT Nonrheumatic aortic valve stenosis TYPE AND SCREEN, SDP (FUTURE SURGERY, [facility]) Routine 01/09/2024 [...] LAB CECILIO ALEMAN [facility] [place] [address] * Differential, Automated (01/09/2024 2:58 PM EDT) Neutrophil % 70.5 % [facility] Neutrophil Absolute 4.34 1.70 - 6.10 x10(3)/[facility] LABORATORY Lymph % 18.9 % [facility] Lymphocytes Abs 1.2 0.9 - 3.2 x10(3)/[facility] LABORATORY Monocyte % 8.0 % [facility] Monocyte Abs 0.5 0.3 - 0.9 x10(3)/[facility] LABORATORY Eos % 1.6 % [facility] Eosinophils Abs 0.1 0.0 - 0.4 x10(3)/[facility] LABORATORY Basophil % 0.5 % [facility] Baso Absolute 0.0 0.0 - 0.1 x10(3)/[facility] LABORATORY Immature Gran % 0.50 % [facility] Comment: Immature granulocytes(IG's)percentage and absolute count will include metamyelocytes, myelocytes, and promyelocytes. Blood smears from CBCs yielding IG's will be scanned manually for concordance. If this scan disagrees with the automated IG or if promyelocytes are noted, a manual differential will be performed. Immature Gran Absolute 0.03 0.00 - 0.04 x10(3)/[facility] LABORATORY Blood 01/09/2024 2:58 PM EDT 01/09/2024 3:03 PM EDT Narrative Resulting Agency Comment Spec In Lab Zak Farmer MD HEMATOLOGY ORDERABL ES [facility] [place] [address] * Hemogram (01/09/2024 2:58 PM EDT) White Blood Cell 6.2 4.0 - 9.5 x10(3)/[facility] LABORATORY Red Blood Cell 5.53 4.58 - 5.54 x10(6)/[facility] LABORATORY Hemoglobin 16.1 13.7 - 16.5 [...] HOSPITAL LABORATORY Platelet 187 145 - 357 x10(3)/[facility] LABORATORY RDW Standard Deviation 39.2 36.0 - 45.0 [facility] LABORATORY RDW coefficient of variation 12.6 11.4 - 13.8 % [facility] Mean Platelet Volume 9.5 7.6 - 12.9 [facility] LABORATORY NRBC% auto 0.0 % [facility] NRBC Absolute 0.000 0.000 - 0.000 x10(3)/[facility] LABORATORY Blood 01/09/2024 2:58 PM EDT 01/09/2024 3:03 PM EDT Narrative Resulting Agency Comment Spec In Lab Zak Farmer MD HEMATOLOGY ORDERABL ES [facility] [place] [address] * Basic Metabolic Panel (non-fasting) (01/09/2024 2:58 [...] Lab aZk Farmer MD CHEMISTRY ORDERABLE S [facility] [place] [address] * Hepatic Function Panel (01/09/2024 2:58 PM [...] MD CHEMISTRY ORDERABLE S Performing Organization Address [facility] Co de Phone Number [facility] [place] [address] * Prothrombin Time (01/09/2024 2:58 PM EDT) [...] ORDERABL ES Performing Organization Address [facility] Co de Phone Number [facility] [place] [address] * Type and Screen Future Surgery, [facility]) (01/09/2024 2:58 PM EDT) Pathologist [facility] ABORH Type O NEGATIVE [facility] Patient BB History Not Found [facility] Expires at [id number] on: 02-20-2024 [facility] Ab Screen Interp Negative [facility] Blood 01/09/2024 2:58 PM EDT 01/09/2024 2:58 PM EDT Narrative Resulting Agency Comment Spec In Lab Zak Farmer MD BLOOD BANK LAB [place] [place] [id number] documented in this encounter Visit Diagnoses Diagnosis Nonrheumatic aortic valve stenosis Aortic valve disorders documented in this encounter Care Teams Lodging Facilities Attendant Relationship Specialty Start Date End Date Vanessa Christian APRN PCP - General Family Medicine 10/21/23 05/26/24 documented as of this encounter
--- OUTSIDE RECORDS SUMMARY | 2024-11-03 10:16 | XMS_ITS | Encounter Summary ---
Author Organization [facility] [place] [address] Care Team Providers Care Brass Instrument Repair Technician Name Role Phone Vanessa Christian APRN Primary Care Provider [phone] Encounter Details Date Type Department Care Team [...] PM EST Office Visit Cardiology at [address] [phone] Sheila Johnson APRN 580 [facility], [facility] [place] [address] documented as of this encounter Visit Diagnoses Not on filedocumented in this encounter Care Teams Brass Instrument Repair Technician Relationship Specialty Start Date End Date Vanessa Christian APRN PCP - General Family Medicine 10/21/23 05/26/24 documented as of this encounter
--- OUTSIDE RECORDS SUMMARY | 2024-11-03 10:16 | XMS_ITS | Encounter Summary ---
Author Organization [facility] [place] [address] Care Team Providers Care Non Destructive Testing Scientist Name Role Phone Vanessa Christian Lane DOTSON Primary Care Provider [phone] Encounter Details Date Type Department Care Team (Late st Contact Info) Description 01/09/2024 2:30 PM EDT Clinical Support Same Day [place] [facility] [place] [phone] Social History Tobacco Use Types Packs/Day Years [...] you tube link for a video about [facility] cardiac surgery. Instructed to bring the booklet [...] PM EST Office Visit Cardiology at [address] [address] Sheila Johnson APRN [address] [place] [address], [facility] [place] [address] documented as of this encounter Visit Diagnoses Not on filedocumented in this encounter Care Teams Non Destructive Testing Scientist Relationship Specialty Start Date End Date Vanessa Christian APRN PCP - General Family Medicine 10/21/23 05/26/24 documented as of this encounter
--- OUTSIDE RECORDS SUMMARY | 2024-11-03 10:16 | XMS_ITS | Encounter Summary ---
Author Organization [facility] [place] [address] Care Team Providers Care Mill Supervisor Name Role Phone Vanessa Christian APRN [...] PM EST Office Visit Cardiology at [address] [address] Sheila Johnson APRN 580 [facility], [facility] [place] [address] documented as of this encounter Visit Diagnoses Not on filedocumented in this encounter Care Teams Mill Supervisor Relationship Specialty Start Date End Date Vanessa Christian APRN PCP - General Family Medicine 10/21/23 05/26/24 documented as of this encounter
--- OUTSIDE RECORDS SUMMARY | 2024-11-03 10:16 | XMS_ITS | Encounter Summary ---
Author Organization [facility] [place] [address] Care Team Providers Care Instructor Wastewater Treatment Plant Name Role Phone Vanessa Christian MAURI Primary Care Provider [phone] Encounter Details Date Type Department Care Team (Late st Contact Info) Description 01/10/2024 Orders Only Lead [place] [phone] Lawson Napoles PA [facility] [place] [address] Screening for cardiovascular condition; Aortic valve stenosis, [...] PM EST Office Visit Cardiology at [address] [place] [phone] Sheila Johnson APRN [address] [facility] [address], [place] [address] documented as of this encounter Visit Diagnoses Diagnosis Screening for cardiovascular condition Screening for other and unspecified cardiovascular conditions Aortic valve stenosis, etiology of cardiac valve disease unspecified documented in this encounter Care Teams Instructor Wastewater Treatment Plant Relationship Specialty Start Date End Date Vanessa Christian APRN PCP - General Family Medicine 10/21/23 05/26/24 documented as of this encounter
--- OUTSIDE RECORDS SUMMARY | 2024-11-03 10:16 | XMS_ITS | Encounter Summary ---
Author Organization [facility] Address [facility] [place] [address] Care Team Providers Care Production Technician Name Role Phone Vanessa Christian MAURI Primary Care Provider [phone] Encounter Details Date Type Department Care Team (Late st Contact Info) Description 02/14/2024 [place] [phone] Zak Farmer MD [facility] CARDIOTHORACIC [place] [address] Coronary artery disease, unspecified vessel or lesion type, unspecified whether angina present, unspecified whether chilkoot or transplanted heart (Primary Dx) Social History [...] Cardiology at [address] [place] [address] Sheila Johnson A, UROLOGY SURGEON [address] [facility], [address] A CARDIOLOGY [place], [place] [phone] documented as of this encounter Results * EKG 12 Lead (03/12/2024 2:35 PM EDT) Ventricular rate 59 BPM MUSE SYSTEM Atrial Rate 59 BPM MUSE SYSTEM P-R Interval 190 ms MUSE SYSTEM QRS Duration 92 ms MUSE SYSTEM Q-T Interval 406 ms MUSE SYSTEM QTC Calculated (Bezet) 401 ms MUSE SYSTEM Calculated P [place] -12 degrees MUSE SYSTEM Calculated R [place] 24 degrees MUSE SYSTEM Calculated T [place] 74 degrees MUSE SYSTEM INTERPRETATION Sinus bradycardia T wave abnormality, consider anterior ischemia Abnormal ECG When compared with ECG of 17-FEB-2024 13:24, DC interval has decreased T wave inversion now evident in Anterior leads Confirmed by Paul Guzman ([id number]) on 03/15/2024 8:36:23 AM MUSE SYSTEM 03/12/2024 2:35 PM EDT 03/15/2024 8:36 AM EDT Zak Farmer MD ECG ORDERABLES MUSE SYSTEM * XR Chest PA & Lateral (Generic) (03/12/2024 1:42 PM EDT) WORKSTATION ID [id number] [facility] Anatomical [...] who have questions please contact the health progressive care unit registered nurse that requested your imaging first. ? Narrative 03/13/2024 8:28 AM EDT EXAMINATION: XR CHEST PA AND LATERAL (GENERIC) CLINICAL HISTORY: s/p cabg eval effusions I25.10, Atherosclerotic heart disease of chilkoot coronary artery without angina pectoris TECHNIQUE: PA [...] eval effusions I25.10, Atherosclerotic heart disease of chilkoot coronary artery withoutangina pectoris TECHNIQUE: PA and [...] patients who have questions please contactthe health progressive care unit registered nurse that requested your imaging first. Zak Farmer MD IMG DX ORDERABLES documented in this encounter Visit Diagnoses Diagnosis Coronary artery disease, unspecified vessel or lesion type, unspecified whether angina present, unspecified whether chilkoot or transplanted heart- Primary Coronary artery disease, unspecified vessel or lesion type, unspecified whether angina present, unspecified whether chilkoot or transplanted heart documented in this encounter Care Teams Production Technician Relationship Specialty Start Date End Date Vanessa Christian APRN PCP - General Family Medicine 10/21/23 05/26/24 documented as of this encounter
--- OUTSIDE RECORDS SUMMARY | 2024-11-03 10:16 | XMS_ITS | Encounter Summary ---
Author Organization [facility] [place] [address] Care Team Providers Care Assistant Professor Of Archaeology Name Role Phone Vanessa Christian MAURI Primary Care Provider [phone] Encounter Details Date Type Department Care Team (Late st Contact Info) Description 12/26/2023 Notes Only Cardiology at [address] [address] Neftali Ernandez MD [facility] [place] [address] Social History Tobacco Use Types Packs/Day Years [...] 1:37 PM EDT Echocardiogram images reviewed from [facility]. Indeed, the aortic valve appears severely stenotic. Cannotrule out bicuspid valve documented in this encounter Plan of Treatment Upcoming Encounters Date Type Department Care Team (Late st Contact Info) Description 11/30/2024 3:00 PM EST Office Visit Cardiology at [address] [address] Sheila Johnson APRN [address] [place] [address], [place] [address] documented as of this encounter Visit Diagnoses Not on filedocumented in this encounter Care Teams Assistant Professor Of Archaeology Relationship Specialty Start Date End Date Vanessa Christian APRN PCP - General Family Medicine 10/21/23 05/26/24 documented as of this encounter
--- OUTSIDE RECORDS SUMMARY | 2024-11-03 10:16 | XMS_ITS | Encounter Summary ---
Author Organization [facility] [place] [address] Care Team Providers Care Director Surface Transportation Name Role Phone Vanessa Christian APRN Primary Care Provider [phone] Encounter Details Date Type Department Care Team (Late st Contact Info) Description 10/21/2023 Abstract Cardiology at [address] [phone] Adam Mayes RN Social History Tobacco Use [...] PM EST Office Visit Cardiology at [address] [address] [address]N [address] [facility] [place] [address] documented as of this encounter Visit Diagnoses Not on filedocumented in this encounter Care Teams Director Surface Transportation Relationship Specialty Start Date End Date Vanessa Christian APRN PCP - General Family Medicine 10/21/23 05/26/24 documented as of this encounter
--- OUTSIDE RECORDS SUMMARY | 2024-11-03 10:16 | XMS_ITS | Encounter Summary ---
[place] [address] Care Team Providers Care Subcontract Manager Name Role Phone Victor M Lafleur MD Primary Care Provider [phone] Reason for Visit * Reason Onset Date Comments Referral 09/20/2023 Encounter Details Date Type Department Care Team (Late st Contact Info) Description 09/20/2023 Telephone Cardiology at [address] [address] Karen Billy, factory maintenance manager Social History Tobacco Use Types Packs/Day Years [...] 10:20 AM EST ----- Message from Dennise Snowdne sent at 09/20/2023 10:15 AM EST ----- Cardiology referral and records scanned. documented in this encounter Plan of Treatment Upcoming Encounters Date Type Department Care Team (Late st Contact Info) Description 11/30/2024 3:00 PM EST Office Visit Cardiology at [address] [address] Sheila Johnson, MAURI 580 [facility] [place] [address] documented as of this encounter Visit Diagnoses Not on filedocumented in this encounter Care Teams Subcontract Manager Relationship Specialty Start Date End Date Victor M Lafleur MD PCP - General 10/02/13 10/20/23 documented as of this encounter
--- OUTSIDE RECORDS SUMMARY | 2024-11-03 10:16 | XMS_ITS | Encounter Summary ---
Author Organization [facility] [place] [address] Care Team Providers Care Newsagent Name Role Phone Vanessa Christian APRN Primary Care Provider [phone] Encounter Details Date Type Department Care Team (Late st Contact Info) Description 10/21/2023 Abstract Cardiology at [address] [phone] Adam Mayes RN Social History Tobacco Use [...] PM EST Office Visit Cardiology at [address] [address] [address] Johnson APRN [address] [facility], [facility] [place] [address] documented as of this encounter Visit Diagnoses Not on filedocumented in this encounter Care Teams Newsagent Relationship Specialty Start Date End Date Vanessa Christian APRN PCP - General Family Medicine 10/21/23 05/26/24 documented as of this encounter
--- OUTSIDE RECORDS SUMMARY | 2024-11-03 10:16 | XMS_ITS | Encounter Summary ---
Author Organization [facility] [place] [address] Care Team Providers Care Kosher Dietary Service Manager Name Role Phone Vanessa Christian Lane DOTSON Primary Care Provider [phone] Reason for Referral * Diagnostic Test (Routine) - Closed Specialty Diagnoses / Procedures Referred By Contac t Referred To Contact Radiology Diagnoses Nonrheumatic aortic valve stenosis Procedures CT Chest wo Contrast (Generic) Louisa Cho PA [facility] [place] [address] [facility] [place] [address] Referral ID Status Reason Start Date Expiration Date V isits Requested Visits Authorized [id number] Closed Specialty Service Requested 01/10/2024 07/11/2025 1 1 Reason for Visit * Diagnostic Test (Routine) - Closed Specialty Diagnoses / Procedures Referred By Contac t Referred To Contact Radiology Diagnoses Nonrheumatic aortic valve stenosis Procedures CT Chest wo Contrast (Generic) Louisa Cho PA [facility] [place] [address] [facility] [place] [address] Referral ID Status Reason Start Date Expiration Date V isits Requested Visits Authorized [id number] Closed Specialty Service Requested 01/10/2024 07/11/2025 1 1 Encounter Details Date Type Department Care Team (Latest Contact Info) Description 02/03/2024 7:36 AM EDT - 02/03/2024 8:05 AM EDT Hospital Encounter CT Scan at [facility] [place] [address] Zak Farmer MD [facility] [place] [address] Nonrheumatic aortic valve stenosis Discharge Disposition: Home [...] 3:00 PM EST Office Visit Cardiology at [place] [address] [place] [address] Sheila Johnson, UPHOLSTERY REPAIRER 580 [facility] [place] [address] documented as of this encounter Procedures Procedure Name Priority Date/Time Associated Diagnosis Comments CT CHEST WO CONTRAST (GENERIC) Routine 02/03/2024 7:44 AM EDT Nonrheumatic aortic valve stenosis documented in this encounter Results * CT Chest wo Contrast (Generic) (02/03/2024 7:44 AM EDT) Pathologist YaSabe WORKSTATION ID [id number] [facility] Anatomical Region Laterality Modality Chest [...] who have questions please contact the health technical healthcare consultant that requested your imaging first. [...] nodule along the minor fissure (series [id number]) and a 8 mm right lower lobe [...] patients who have questions please contactthe health technical healthcare consultant that requested your imaging first. Zak Farmer MD IMG CT ORDERABLES documented in this encounter Visit Diagnoses Diagnosis Nonrheumatic aortic valve stenosis Aortic valve disorders documented in this encounter Care Teams Kosher Dietary Service Manager Relationship Specialty Start Date End Date Vanessa Christian APRN PCP - General Family Medicine 10/21/23 05/26/24 documented as of this encounter
--- OUTSIDE RECORDS SUMMARY | 2024-11-03 10:16 | XMS_ITS | Encounter Summary ---
Author Organization [facility] Address [facility] [place] [address] Care Team Providers Care Sales And Service Engineer Name Role Phone Vanessa Christian MAURI Primary Care Provider [phone] Reason for Visit * Consultation (Routine) - Closed Specialty Diagnoses / Procedures Referred By Contac t Referred To Contact Cardiac Surgery Diagnoses Nonrheumatic aortic valve stenosis significant - TAVR ( defers to Card Surg d/t age) Neftali Ernandez MD [facility] [place] [address] Zak Farmer MD [facility] [place] [address] Referral ID Status Reason Start Date Expiration Date V isits Requested Visits Authorized [id number] Closed Consult, Test & Treat 10/21/2023 10/20/2024 1 1 Encounter Details Date Type Department Care Team (Late st Contact Info) Description 01/09/2024 1:40 PM EDT Office Visit [place] [address] Zak Farmer MD [facility] [place] [address] Nonrheumatic aortic valve stenosis Social [...] office. Best personal regards, Zak Farmer MD [phone] In aggregate 55 minutes were spent evaluating [...] 3:00 PM EST Office Visit Cardiology at [place] [address] [place] [address] Sheila Johnson, MAURI 580 [facility] [place] [address] documented as of this encounter Results * [...] questions please contact the health skin care instructor that requested your imaging first. ? Electronically signed by: Toby Dave MD, [facility] ([phone]), at 01/09/2024 3:11 PM Narrative 01/09/2024 3:11 [...] have questions please contactthe health skin care instructor that requested your imaging first. Electronically signed by: Toby Dave MD, [facility]([phone]), at 01/09/2024 3:11 PM Zak Farmer MD [...] CHEMISTRY ORDERABLE S [facility] [place] [address] * Hepatic Function Panel (01/09/2024 2:58 PM [...] S Performing Organization Address [facility] de Phone Number [facility] [place] [address] * Prothrombin Time (01/09/2024 2:58 PM EDT) [facility] Prothrombin Time 10.6 9.4 - 12.5 [...] MD HEMATOLOGY ORDERABL ES Performing Organization Address City/[facility] Co de Phone Number [facility] [place] [address] * Type and Screen Future Surgery, [facility] SAME [facility] ONLY) (01/09/2024 [...] Zak Farmer MD BLOOD BANK LAB ORDE [facility] Organization Address City/State/ZIP Co de Phone Number [facility] [place] [address] documented in this encounter Visit Diagnoses Diagnosis Nonrheumatic aortic valve stenosis Aortic valve disorders Nonrheumatic aortic valve stenosis Aortic valve disorders documented in this encounter Care Teams Sales And Service Engineer Relationship Specialty Start Date End Date Vanessa Christian, MAURI PCP - General Family Medicine 10/21/23 05/26/24 documented as of this encounter
--- OUTSIDE RECORDS SUMMARY | 2024-11-03 10:16 | XMS_ITS | Encounter Summary ---
[place] [address] Care Team Providers Care Engineering Patternmaker Name Role Phone Vanessa Christian MAURI Primary Care Provider [phone] Reason for Visit * Auth/Cert (Routine) Specialty [...] W RHC (WRVU 5.9) Rima Dickinson MD [facility] [place] [address] [facility] Referral ID Status Reason Start Date Expiration Date Visits Re quested Visits Authorized [id number] 1 1 Encounter Details Date Type Department Care Team (Late st Contact Info) Description 02/03/2024 10:00 AM EDT - 02/03/2024 11:00 AM EDT [place] [address] Saira Lua MD CARDIAC CATHETERIZATION Social History [...] lbs Follow-up Visits Follow up with your relaster in 2-4 weeks Access Site 'Black and Blue' and tenderness is expected during the first week Call if you noted a mass (lump) greater than the size of a ellis Call Office with any Questions and if you have any of the following Clarence Lane M.D Interventional Dog Obedience Instructor Labor Commissioner #: [phone] * Attachments The following attachments cannot be sent through Care Everywhere. * CAD (Coronary Artery Disease): General Info (Estonian) * Coronary Angiogram: Post-op (Estonian) documented in this encounter Medications at Time [...] Lane MD - 02/03/2024 11:48 AM EDT [facility] Interventional Cardiology Adult Pre-Procedure H&P Update: Cardiac Catheterization Karlos Anthony [id number] 1960 Chief Complaint: Aortic stenosis HPI: Mr. [...] is inthe chart Clarence Lane MD Interventional Dog Obedience Instructor 02/03/24 11:48 AM documented in this encounter Miscellaneous Notes * Brief Op Note - Clarence Lane MD - 02/03/2024 12:51 PM EDT Preliminary Cardiac Catheterization Procedure Note: Patient Name: Karlos Anthony : [id number] MR#: [id number] Case Date: 02/03/2024 Labor Commissioner: Surgeon(s) and Role: * Saira Lua MD [...] 3:00 PM EST Office Visit Cardiology at [place] [address] [place] [phone] Sheila Johnson, MAURI 580 [facility], [facility] [place] [address] Scheduled Orders Name Type Priority Associated Diagnoses [...] ? Procedure Date: 02/03/2024 ? A #: [id number] ? Primary Physician: Saira Lua ? Case #: [id number] ? File Name: [id number] ? Catheterization Order Number: [id number] ? [facility] ? Final Report [place], [place] ? Patient Name: ? Karlos Patenaude ? ID#: ?[id number] ? : ?1960 ? Procedure Date: ? February 03, 2024 ? Case #: ? [id number] ? Room: ? 5 ? Case Physician: ? Emad Mogadam, M.D. ? Start: ?12:29 ?Fellow: ? Clarence N Mgbemena, M.D. ? Admission: ??02/03/2024 ? Referring Physician: [...] Karlos Anthony Procedure Date: 02/03/2024 A #: [id number] Primary Physician: Saira Lua Case #: [id number] File Name: [id number] Catheterization Order Number: [id number] [facility] [place] Patient Name: Karlos Anthony ID#:[id number] :1960 Procedure Date: February 03, 2024 Case [...] (Bezet) 372 ms MUSE SYSTEM Calculated P [place] 59 degrees MUSE SYSTEM Calculated R [place] 34 degrees MUSE SYSTEM Calculated T [place] 63 degrees MUSE SYSTEM INTERPRETATION Sinus bradycardia [...] MD) documented in this encounter Care Teams Engineering Patternmaker Relationship Specialty Start Date End Date Vanessa Christian, MAURI PCP - General Family Medicine 10/21/23 05/26/24 documented as of this encounter
[2024-11-03 10:17] VITALS: BP 142/72; PULSE 56
[2024-11-05 10:02] VITALS: BP 147/74; PULSE 74; O2SAT 90
--- OUTSIDE RECORDS SUMMARY | 2024-11-05 10:02 | XMS_ITS | Clinical Summary ---
Author Organization [facility] Address [address] [place] [address] Care Team Providers Care Vamp Creaser Name Role Phone Filidayna Vanessa Sherman NP [...] 75+ series) 2034 Insurance [employer] Care Teams Vamp Creaser Relationship Specialty Start Date End Date Vanessa Christian, ANTWAN [address] [place] [address] PCP - General Family Medicine - Primary Care 10/07/23
--- OUTSIDE RECORDS SUMMARY | 2024-11-05 10:02 | XMS_ITS | Encounter Summary ---
Author Organization [facility] Address [place] [address] Care Team Providers Care Fruit Harvester Name Role Phone Vanessa Christian MAURI Primary Care Provider [phone] Encounter Details Date Type Department Care Team (Latest Contact Info) Description 03/12/2024 1:30 PM EDT - 03/12/2024 11:59 PM EDT Hospital Encounter XRay at [address] [place] [address] Coronary artery disease, unspecified vessel or lesion type, unspecified whether angina present, unspecified whether [place] or transplanted heart Discharge Disposition: Home Social History Tobacco Use Types Packs/Day Years Used Date Smoking Tobacco: Former Cigarettes Smokeless Tobacco: Never Comments:Quit 15 + years ago Alcohol Use Standard Drinks/Week Comments Yes 0 (1 standard drink = 0.6 oz pur e alcohol) rare [facility] Utilities Answer Date Recorded In the past 12 months has e [email or web address], gas, oil, or water [employer] threatened to shut off services in [...] 3:00 PM EST Office Visit Cardiology at [place] [address] [place] [address] Sheila Johnson, MAURI 580 [facility], [facility] [place] [address] documented as of this encounter Procedures Procedure Name Priority Date/Time Associated Diagnosis Comments XR CHEST PA AND LATERAL Routine 03/12/2024 1:42 PM EDT Coronary artery disease, unspecified vessel or lesion type, unspecified whether angina present, unspecified whether [place] or transplanted heart documented in this encounter Results * XR Chest PA & Lateral (Generic) (03/12/2024 1:42 PM EDT) Pathologist [employer] WORKSTATION ID [id number] RAD Anatomical Region Laterality Modality Chest N/A [...] eval effusions I25.10, Atherosclerotic heart disease of [place] coronary artery without angina pectoris TECHNIQUE: PA [...] eval effusions I25.10, Atherosclerotic heart disease of [place] coronary artery withoutangina pectoris TECHNIQUE: PA and [...] acute care that requested your imaging first. Zak Farmer MD IMG DX ORDERABLES documented in this encounter Visit Diagnoses Diagnosis Coronary artery disease, unspecified vessel or lesion type, unspecified whether angina present, unspecified whether [place] or transplanted heart documented in this encounter Care Teams Fruit Harvester Relationship Specialty Start Date End Date Vanessa Christian APRN PCP - General Family Medicine 10/21/23 05/26/24 documented as of this encounter
--- OUTSIDE RECORDS SUMMARY | 2024-11-05 10:02 | XMS_ITS | Encounter Summary ---
Author Organization [facility] Address [facility] [place] [address] Care Team Providers Care On Air Talent Name Role Phone Vanessa Christian MAURI Primary Care Provider [phone] Encounter Details Date Type Department Care Team [...] PM EST Office Visit Cardiology at [address] [address] Sheila Johnson APRN [address] [place] [address], [facility] [place] [address] documented as of this encounter Visit Diagnoses Not on filedocumented in this encounter Care Teams On Air Talent Relationship Specialty Start Date End Date Vanessa Christian APRN PCP - General Family Medicine 10/21/23 05/26/24 documented as of this encounter
--- OUTSIDE RECORDS SUMMARY | 2024-11-05 10:02 | XMS_ITS | Encounter Summary ---
Author Organization [facility] Address [facility] [place] [address] Care Team Providers Care Driver Examiner Name Role Phone Vanessa Christian SOCIAL WORK SUPERVISOR Primary Care Provider Encounter Details Date Type Department Care Team (Late st Contact Info) Description 03/12/2024 2:40 PM EDT Office [place] [phone] Zak Farmer MD [facility] [place] [address] Coronary artery disease, unspecified vessel or lesion type, unspecified whether angina present, unspecified whether [place] or transplanted heart Social History Tobacco Use Types Packs/Day Years Used Date Smoking Tobacco: Former Cigarettes Smokeless Tobacco: Never Comments:Quit 15 + years ago Alcohol Use Standard Drinks/Week Comments Yes 0 (1 standard drink = 0.6 oz pur e alcohol) rare [facility] Utilities Answer Date Recorded In the past 12 months has e [facility] [employer] [facility], gas, oil, or water [employer] threatened to shut off services in [...] 2:40 PM EDT To: MD Vanessa Coles, SOCIAL WORK SUPERVISOR Re; Karlos Santa ( 1960) We [...] office. Best personal regards, Zak Farmer MD [phone] documented in this encounter Plan of Treatment Upcoming Encounters Date Type Department Care Team (Late st Contact Info) Description 11/30/2024 3:00 PM EST Office Visit Cardiology at [place] [address] [place] [address] Sheila Johnson, MAURI 580 [facility], [facility] [place] [address] documented as of this encounter Procedures Procedure Name Priority Date/Time Associated Diagnosis Comments EKG 12-LEAD Routine 03/12/2024 2:35 PM EDT Coronary artery disease, unspecified vessel or lesion type, unspecified whether angina present, unspecified whether [place] or transplanted heart documented in this encounter Results * EKG 12 Lead (03/12/2024 2:35 PM EDT) Ventricular rate 59 BPM MUSE SYSTEM Atrial Rate 59 BPM MUSE SYSTEM P-R Interval 190 ms MUSE SYSTEM QRS Duration 92 ms MUSE SYSTEM Q-T Interval 406 ms MUSE SYSTEM QTC Calculated (Bezet) 401 ms MUSE SYSTEM Calculated P [place] -12 degrees MUSE SYSTEM Calculated R [place] 24 degrees MUSE SYSTEM Calculated T [place] 74 degrees MUSE SYSTEM INTERPRETATION Sinus bradycardia T wave abnormality, consider anterior ischemia Abnormal ECG When compared with ECG of 17-FEB-2024 13:24, OK interval has decreased T wave inversion now evident in Anterior leads Confirmed by Paul Guzman ([id number]) on 03/15/2024 8:36:23 AM MUSE SYSTEM 03/12/2024 2:35 PM EDT 03/15/2024 8:36 AM EDT Zak Farmer MD ECG ORDERABLES MUSE SYSTEM documented in this encounter Visit Diagnoses Diagnosis Coronary artery disease, unspecified vessel or lesion type, unspecified whether angina present, unspecified whether [place] or transplanted heart documented in this encounter Care Teams Driver Examiner Relationship Specialty Start Date End Date Vanessa Christian APRN PCP - General Family Medicine 10/21/23 05/26/24 documented as of this encounter
--- OUTSIDE RECORDS SUMMARY | 2024-11-05 10:02 | XMS_ITS | Encounter Summary ---
Author Organization [facility] Address [facility] [place] [address] Care Team Providers Care Sub Acute Care Nurse Name Role Phone Vanessa Christian MAURI Primary Care Provider [phone] Encounter Details Date Type Department Care Team [...] PM EST Office Visit Cardiology at [address] [address] Sheila Johnson APRN [address] [place] [address], [facility] [place] [address] documented as of this encounter Visit Diagnoses Not on filedocumented in this encounter Care Teams Sub Acute Care Nurse Relationship Specialty Start Date End Date Vanessa Christian APRN [address] [place] [address] PCP - General Family Medicine 05/27/24 documented as of this encounter
--- OUTSIDE RECORDS SUMMARY | 2024-11-05 10:02 | XMS_ITS | Encounter Summary ---
Author Organization [facility] Address [facility] [place] [address] Care Team Providers Care Finisher Polisher Name Role Phone Vanessa Christian MAURI Primary Care Provider [phone] Encounter Details Date Type Department Care Team [...] PM EST Office Visit Cardiology at [address] [address] Sheila Johnson APRN [address] [place] [address], [facility] [address] documented as of this encounter Visit Diagnoses Not on filedocumented in this encounter Care Teams Finisher Polisher Relationship Specialty Start Date End Date Vanessa Christian APRN PCP - General Family Medicine 10/21/23 05/26/24 documented as of this encounter
--- OUTSIDE RECORDS SUMMARY | 2024-11-05 10:02 | XMS_ITS | Referral Summary ---
Author Organization [facility] Address [address] [place] [address] Care Team Providers Care Fortune Cookie Maker Name Role Phone Vanessa Christian Lane MONCADA Primary Care Provider [phone] Social History Tobacco Use Types Packs/Day Years Used Date Smoking Tobacco: Never Assessed Sex and Gender Information Value Date Recorded Sex Assigned at Not on file Legal Sex Male 22:02 EST Gender Identity Not on file Sexual Orientation Not on file Plan of Treatment Not on file Insurance R Care Teams Fortune Cookie Maker Relationship Specialty Start Date End Date Vanessa Christian, ANTWAN [address] [place] [phone] PCP - General Family Medicine - Primary Care 10/07/23
--- OUTSIDE RECORDS SUMMARY | 2024-11-05 10:02 | XMS_ITS | Encounter Summary ---
Author Organization [facility] Address [facility] [place] [address] Care Team Providers Care Health Care Liaison Name Role Phone Vanessa Christian Lane DOTSON Primary Care Provider [phone] Reason for Visit * Reason Comments Coronary Artery Disease Aortic Stenosis Encounter Details Date Type Department Care Team (Latest Contact Info) Description 05/27/2024 11:00 AM EDT Office Visit Cardiology at [address] [place] [phone] Neftali Ernandez MD [facility] [place] [address] ASCVD (arteriosclerotic cardiovascular disease); Nonrheumatic aortic valve stenosis Social History Tobacco Use Types Packs/Day Years Used Date Smoking Tobacco: Former Cigarettes Smokeless Tobacco: Never Comments:Quit 15 + years ago Alcohol Use Standard Drinks/Week Comments Yes 0 (1 standard drink = 0.6 oz pur e alcohol) rare [facility] Utilities Answer Date Recorded In the past 12 months has e [email or web address], gas, oil, or water [employer] threatened to shut off services in your [...] PM EST Office Visit Cardiology at [address] [address] Sheila Johnson APRN 580 [facility], [facility] [place] [address] documented as of this encounter Visit Diagnoses Diagnosis ASCVD (arteriosclerotic cardiovascular disease) Unspecified cardiovascular disease Nonrheumatic aortic valve stenosis Aortic valve disorders documented in this encounter Care Teams Health Care Liaison Relationship Specialty Start Date End Date Vanessa Christian APRN [address] [place] [address] PCP - General Family Medicine 05/27/24 documented as of this encounter
--- OUTSIDE RECORDS SUMMARY | 2024-11-05 10:02 | XMS_ITS | Encounter Summary ---
Author Organization [facility] Address [address] [place] [address] Care Team Providers Care Svp Digital Ad Sales Name Role Phone Filidayna Vanessa Dayna MONCADA Primary Care Provider [phone] Encounter Details Date Type Department Care Team (Late st Contact Info) Description 10/24/2023 Lab Requisition [facility] Pathology & Laboratory Medicine - [address] [address] Oscar Nichole MD [address] [place] [address] [id number] Factitial dermatitis Social History Tobacco Use Types [...] management options, if applicable. 10/28/2023 11:24 EST [facility] Final Diagnosis A. SKIN OF TAOISM, LEFT, SHAVE BIOPSY: - Seborrheic keratosis, pigmented. 10/28/2023 11:24 EST [facility] Attestation By the signature below, the attending physician certifies that they have 1) personally conducted a gross and/or microscopic examination of the described specimen(s), and/or personally interpreted the results of laboratory testing of the described specimen(s), and 2) personally rendered or confirmed the above diagnosis. 10/28/2023 11:24 [facility] at [address] Microscopic Description The stratum corneum is thickened by compact and basketweave orthokeratosis with formation of horn pseudocysts. The epidermis is acanthotic with formation of broad and anastomosing trabeculae. The trabeculae are composed of basaloid keratinocytes with round uniform nuclei. The keratinocytes have a variable amount of melanin pigment. 10/28/2023 11:24 [facility] Clinical History Pigmented 2 cm patch; clinical diagnosis code: L98.1 10/28/2023 11:24 [facility] Gross Description A. Received in formalin labelled with proper patient identification (initials P, A) and left quaker is a shave biopsy of an irregular [...] A3. Nora Anderson 10/25/2023 8:47 10/28/2023 11:24 [facility] Performing Lab [facility] 10/28/2023 11:24 [facility] Scanned Images 10/28/2023 11:24 [facility] Tissue SPECIMEN FROM SKIN / Unknown 10/24/2023 14:30 EST 10/24/2023 22:04 EST us Oscar Nichole MD PATHOLOGY ORDERABLES Final Resul t [facility] [address] [place] [address] documented in this encounter Visit Diagnoses Diagnosis Factitial dermatitis Dermatitis factitia (artefacta) documented in this encounter Care Teams Svp Digital Ad Sales Relationship Specialty Start Date End Date Vanessa Christian NP [address] [place] [address] PCP - General Family Medicine - Primary Care 10/07/23 documented as of this encounter
--- OUTSIDE RECORDS SUMMARY | 2024-11-05 10:02 | XMS_ITS | Clinical Summary ---
Author Organization [facility] Address [facility] [place] [address] Care Team Providers Care J2Ee Android Developer Name Role Phone Vanessa Christian Lane DOTSON Primary Care Provider [phone] Allergies No known active allergies Medications Medication [...] of face 09/26/2023 05/27/2024 Overview (09/26/2023): Right episcopal Chest pressure 08/14/2023 10/21/2023 SILVA (dyspnea on [...] PM EST Office Visit Cardiology at [address] [address] Sheila Johnson APRN 580 [facility] [place] [address] Health Maintenance Due Date Last Done Comments [...] series) 06/07/2024 Medical Devices Implanted Type Area Primer Expeditor And Drier Device Identifier Shelf Expiration Date Model / Serial / Lot Cable,Cut,Edg ,Blnt,Ss,3tpr ([id number]) - [id number] Implanted:Qty : 1 on 02/17/2024 by Zak Farmer MD at [facility] IMPLANTS Midline: Chest [employer] - [id number] 09/02/2028 [id number] / / [id number] Valve Coronary Aortic 23mm Tissue Trnscath Biopros Inspiris ([id number]) (Autoreq) - [id number] Implanted:Qty : 1 on 02/17/2024 by Zak Farmer MD at [facility] IMPLANTS Heart [employer] - T[employer]I LI 09/15/2027 [id number] 23MM / [id number] / Advance Directives * Attempt Cardiopulmonary Resuscitation [...] Status decision made by: Patient Care Teams J2Ee Android Developer Relationship Specialty Start Date End Date Vanessa Christian APRN [address] [place] [address] PCP - General Family Medicine 05/27/24
--- OUTSIDE RECORDS SUMMARY | 2024-11-05 10:02 | XMS_ITS | Encounter Summary ---
Author Organization [facility] Address [facility] [place] [address] Care Team Providers Care Refrigeration Tech Name Role Phone Gino Vanessa Lane DOTSON Primary Care Provider [phone] Encounter Details Date Type Department Care Team (Late st Contact Info) Description 02/24/2024 Orders Only Cardiac Surgery [facility] [place] [phone] Trudi Lester APRN [facility] [place] [address] Social History Tobacco Use Types Packs/Day Years Used Date Smoking Tobacco: Former Cigarettes Smokeless Tobacco: Never Comments:Quit 15 + years ago Alcohol Use Standard Drinks/Week Comments Yes 0 (1 standard drink = 0.6 oz pur e alcohol) rare [facility] Utilities Answer Date Recorded In the past 12 months has e [employer], gas, oil, or water [employer] threatened to shut off services in [...] PM EST Office Visit Cardiology at [address] [phone] Sheila Johnson APRN [address] [place] [address], [facility] [place] [address] documented as of this encounter Visit Diagnoses Not on filedocumented in this encounter Care Teams Refrigeration Tech Relationship Specialty Start Date End Date Vanessa Christian APRN PCP - General Family Medicine 10/21/23 05/26/24 documented as of this encounter
--- OUTSIDE RECORDS SUMMARY | 2024-11-05 10:03 | XMS_ITS | Encounter Summary ---
Author Organization [facility] [place] [address] Care Team Providers Care Gear Setter Name Role Phone Aparna Jordan MAURI Primary Care Provider [phone] Reason for Visit * Auth/Cert (Routine) Specialty [...] ARTERIAL GRAFT (WRVU 7.93) Hayder Graham MD [facility] [place] [address] [facility] Referral ID Status Reason Start Date Expiration Date Visits Re quested Visits Authorized [id number] 1 1 Encounter Details Date Type Department Care Team (Late st Contact Info) Description 02/17/2024 7:30 AM EDT - 02/17/2024 1:26 PM EDT Surgery [place] [id number] Hayder Graham MD [facility] [place] [address] ENDOSCOPIC HARVEST VEIN(S) FOR CABG (WRVU 0.31) [...] Age: 63 y.o. Birthdate: 1960 Language: St Helenian Race: White Ethnicity: Not nor Admit Date: 02/17/2024 Discharge Date: 02/24/24 Attending Physician: Hayder Graham MD Follow-up Recommendations for Providers: Please continue routine management of cardiovascular risk factors including blood pressure, lipids,glucose, etc. Please note any changes to medications. Patient to follow up with PCP, Aparna Jordan APRN, in 1-2 weeks. Patient to follow up with Commercial Coordinator, Neftali Ernandez MD , in 2 weeks. Patient to follow up with Cardiac Surgeon, Dr. Hayder Graham, with a chest x-ray, EKG, and Echo. Inpatient Provider Contact Information: [facility] Section of Cardiac Surgery [facility] [address] FAX [phone] Discharge Diagnoses (Hospital Problems) Primary Diagnoses: /CAD [...] Hypertension 08/14/2023 Nevus of face 09/26/2023 Right amish Past Surgical History: Procedure Laterality Date PRO CABG, ARTERIAL, SINGLE N/A 02/17/2024 @CABG, USING ARTERIAL GRAFT;SINGLE ARTERIAL GRAFT (WRVU 33.75) performed by Hayder Graham MD at [facility] MAIN OR PRO CABG, ARTERY-VEIN, TWO N/A 02/17/2024 @CABG, TWO VENOUS GRAFTS & ARTERIAL GRAFT (WRVU 7.93) performed by Hayder Graham MD at [facility] MAIN OR PRO ENDOSCOPY W/VIDEO-ASST VEIN HARVEST, CABG Left 02/17/2024 ENDOSCOPIC HARVEST VEIN(S) FOR CABG (WRVU 0.31) performed by Hayder Graham MD at [facility] MAIN OR PRO REPLACEMENT PROSTHETIC AORTIC VALVE OPEN W CARDIOPULMONARY BYPASS HOMOGRF/STENT N/A 02/17/2024 @REPLACE AORTIC VALVE, OPEN, W\CPB, W\PROSTHETIC VALVE (WRVU 41.32) performed by Hayder Graham MD at [facility] MAIN OR Prior To Admission [...] insufficiency. He has glaucoma. He used to [employer] until about 15 years ago. He has undergone prior herniorrhaphy. 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 Major Procedures/Operations: 02/17/24 s/p avr/cabgx3 CABG x 3 JOSE->LAD SVG->dRCA SVG->OM1 EVH from LLE AVR with a 23 mm Inspiris Bioprosthesis Hospital Course: Karlos Garcia was admitted to [facility] on 02/17/2024 via the Same Day [...] Hayder Graham and/or the Cardiac Surgery Physician Canvas Repairer Team may be reached at . Antibiotic [...] Dr. Hayder Graham. You may use a [place] Track or treadmill but avoid any pulling [...] being managed by your PCP and/or Commercial Coordinator. For future medication refills, please refer to your PCP and/or Commercial Coordinator after your discharge from our service. Thank you REMOVE CHEST TUBE SUTURES ON OR AFTER 03/02/24 Home oxygen therapy: N/A Follow up appointments: You should follow up with your PCP, Aparna Jordan APRN, in 1-2 weeks. Our office will schedule an appointment with your Commercial Coordinator, Neftali Ernandez MD , in 2 weeks. You have an appointment with your Cardiac Surgeon, Dr. Hayder Graham, 4 weeks with a chest x-ray, EKG, and Echo before your appointment. Cardiac Rehabilitation: Karlos Garcia was seen regarding participation in the outpatient Phase 2Cardiac Rehabilitation at [facility]. The patient agrees to a referral to this program. The referral will be sent at discharge and the patient should be contacted by the Program within 1- 2 weeks from discharge. Future Appointments and Orders Future Orders Complete By Expires Echocardiogram Transthoracic [73952 CPT(R)] 03/26/2024 09/25/2024 Process Instructions: Scheduling Instructions: Questions: Where will study be performed?: [facility] Clinics Does the patient have Congenital Heart Disease?: Does patient require sedation?: Sedation rationale: XR Chest PA & Lateral (Generic) [99191 06981 Custom] 03/26/2024 09/25/2024 Process Instructions: Scheduling Instructions: Questions: Portable exam?: Reason for exam and clinical history: s/p avr/cabg Clinical information / jerome questions for radiologist: Stat read required?: Date of injury if applicable: Requested Time: Where will study be performed?: [facility] Radiology Referral to Cardiac Rehab [[id number] Custom] As directed Process Instructions: If no progress note charted, please enter Clinical details in comments. Scheduling Instructions: Questions: My question or request is: s/p AVR/CABG. Cardiac rehab at [facility]. Referral to Home Health [REF34 Custom] As directed Process Instructions: If no progress note charted, please enter Clinical details in comments. Scheduling Instructions: Comments: Please evaluate Karlos Garcia for admission to Home Health. [address] Phone Number: Date of : 1960 Inpatient DOCUMENTATION FOR VNA SERVICES (INCLUDING THOSE PATIENTS WITH MEDICARE COVERAGE REQUIRING HOME VNA SERVICES AND/OR HOSPICE SERVICES) PATIENT'S LOCATION: Karlos Garcia [address] [employer] [phone] Contracting Engineer's Name: self/family In discussion with the attending physician, it is certified that this patient is under their care and that they, or a Nurse Practitioner, or Physician Canvas Repairer who is working directly with them, hada [...] for services as follows: HOME HEALTH AGENCY: [facility] [address] [place] [phone] RN orders: Cardiopulmonary assessment, incisional assessment, assess [...] issues please call the Cardiology Office at [phone] FOR MEDICARE ONLY: (please delete this section [...] Signed: NEFTALI MENON PA-C [facility] Section of Cardiac Surgery [facility] [address] FAX [phone] Date: 02/24/2024 CC: Aparna Jordan, MAURI Jordan, Aparna Sherman APRN [address] [place] [address] documented in this encounter Discharge Instructions * [...] Hayder Graham and/or the Cardiac Surgery Physician Canvas Repairer Team may be reached at . Antibiotic [...] Dr. Hayder Graham. You may use a [place] Track or treadmill but avoid any pulling [...] being managed by your PCP and/or Commercial Coordinator. For future medication refills, please refer to your PCP and/or Commercial Coordinator after your discharge from our service. Thank you REMOVE CHEST TUBE SUTURES ON OR AFTER 03/02/24 Home oxygen therapy: N/A Follow up appointments: You should follow up with your PCP, Aparna Jordan APRN, in 1-2 weeks. Our office will schedule an appointment with your Commercial Coordinator, Neftali Ernandez MD , in 2 weeks. You have an appointment with your Cardiac Surgeon, Dr. Hayder Graham, 4 weeks with a chest x-ray, EKG, and Echo before your appointment. Cardiac Rehabilitation: Karlos Garcia was seen regarding participation in the outpatient Phase 2Cardiac Rehabilitation at [facility]. The patient agrees to a [...] 0600 and on the weekends please page [phone]. * Eric Barahona PA - 02/23/2024 9:27 [...] 0600 and on the weekends please page [phone]. * Tiffanie Owens, CUSTOMER OPERATIONS MANAGER - 02/22/2024 2:48 PM EDT Physical [...] Pt reports his dtr is coming from [place] to stay upon d/c for 10 days. 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 He drives. He works Precautions/Special Considerations: [...] LRAD and supervision Time IN / OUT: 0408-8837 Total Time: 30 minutes; TEFx2 Tiffanie Owens Pager: [phone] Physical Therapy Inpatient Rehabilitation Department * Romeo [...] 0600 and on the weekends please page [phone]. * Kelley Hinson CUSTOMER OPERATIONS MANAGER - 02/21/2024 10:15 AM EDT Physical [...] Pt reports his dtr is coming from [place] to stay upon d/c for 10 days. 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 He drives. He works Precautions/Special Considerations: [...] LRAD and supervision Time IN / OUT: 1805-1291 Total Time: 25 minutes; TEF 2 Kelley Hinson PTA Pager: [phone] Physical Therapy Inpatient Rehabilitation Department * Louisa [...] 0600 and on the weekends please page [phone]. * Kelley Hinson PTA - 02/20/2024 3:32 [...] at that time Kelley Hinson PTA Pager: [phone] Physical Therapy Inpatient Rehab Department * Louisa [...] 0600 and on the weekends please page [phone]. * Maris Benavides, PT - 02/19/2024 11:22 [...] Pt reports his dtr is coming from [place] to stay upon d/c for 10 days. 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 He drives. He works. Precautions/Special Considerations: [...] outlined inthis evaluation. MARIS BENAVIDES, PT Pager: [phone] Physical Therapy Inpatient Rehabilitation Department Time IN / OUT: 3737-2914 Total Time: 38 (eval) minutes; * Antonio [...] 0600 and on the weekends please page [phone]. * Minnie Begum PA - 02/18/2024 8:25 [...] 0600 and on the weekends please page [phone]. * Kim Ha RCP - 02/17/2024 2:25 [...] plan since last visit. Hayder Graham MD [phone] Source Note - Hayder Graham MD - [...] given written informed consent. Hayder Graham MD [phone] * Hayder Graham MD - 02/17/2024 7:00 [...] given written informed consent. Hayder Graham MD [phone] documented in this encounter Miscellaneous Notes * [...] information for follow-up Home Health & Hospice, [address] [place] [address] Cardiac Rehab, [address] [place] [address] Transportation: family or friend will provide Functional status prior to admission: Independent Home Environment: Others in the home: alone. Current Living Arrangements: home/apartment/condo. Accessibility Concerns:a few steps to enter 1 floor home. Current Functional Ability: Assistive Person and Equipment DME used at home: none DME Needed at Discharge: N/A Patient is insured through: Primary Insurance: [employer] Payor: [facility] / Plan: [facility] PPO / Product Type: *No Product type* [...] pain managed with scheduled Tylenol. Worked with [employer]. Ambulated in the roque multiple times during [...] as Appropriate) * Plan of Care - Jazyln Maldonado RN - 02/20/2024 5:16 PM EDT [...] Primary Insurance: [facility] Payor: [facility] / Plan: [facility] PPO / Product Type: *No Product type* / Secondary Insurance: N/A Last Physical Therapy Recommendation: home with home health (Str coming to stay for a week or two upon d/c) with to be determined (owns rolling walker, shower seat) Plan for discharge is: Home w/ Services Outpatient Agency/Support Group Needs: Homecare agency Home Health Services: Physical Therapy, Registered Nurse Agency Referrals: [facility] [address] [place] [phone] Transportation: family or friend will provide Barriers to discharge: Discharge planning Plan going forward: Service Care Management will continue to follow and assist with discharge planning and coordination of care as indicated. Anticipated Date of Discharge: 02/22/2024 Rhett Bell RN RN/CM - Cellphone: [phone] Pager: [phone] Covering Service RN/CM * Plan of Care [...] Phase 2 Cardiac Rehabilitation at [facility]. The patient agrees to a [...] Hypertension 08/14/2023 Nevus of face 09/26/2023 Right amish Hospitalizations Within the Past 30 Days: no previous admission in last 30 days Current Decision-Making Capacity: Self If AD's have not been completed the following surrogate would be surrogate decision maker per [place] surrogate decision making law. (Only good for 180 days) Any patient receiving care in [place] must abide by [place] law. The hierarchy [...] The agent with financial power of estate attorney or a conservator appointed in accordance [...] In the past 12 months has the [employer], gas, oil, or water [employer] threatened to shut off services in [...] [address] [facility] [address] Physical address: [address] [facility], [address] Social & Family Supports: All names listed [...] Primary Insurance: [facility] Payor: [facility] / Plan: [facility] PPO / Product Type: *No Product type* / Secondary Insurance: N/A ; Prescription Coverage: Yes Preferred Pharmacy: [id number] [address] [place] Status: Patient is a : No Primary Care Provider confirmed: Aparna Jordan, MAURI [phone] Patient/Caregiver Goals of Treatment: dc to home Potential Needs for Transition of Care: home health care Agency Referrals: I have met with the patient to: discuss discharge planning needs. provide the [facility], Office of Care Management letter from the Refrigeration Houseman pertaining to rehab referrals. provide a letter describing our affiliations within the [facility] and educate about their right to choose where referrals are sent. provide a list of Home Health Agencies / Durable Medical Equipment vendors which serve their preferred geographic area. provided patient with [facility] Star Quality Rating handout. They have requested referrals to: [facility] [address] [place] [address] Note routed to a Special Tax Auditor who will communicate referrals to facilities and [...] daughter, Cielo, will be coming in from [place] on 02/18, to stay with him , [...] Reina Greene RN CM, BSN, CMGT-BC Ext [phone] * Plan of Care - Binta Trinidad [...] Operative Note Patient Name: Karlos Garcia : [id number] MR#: [id number] Case Date: 02/17/2024 Surgeon: Surgeon(s) and Role: * Hayder Graham MD - Primary * Neftali Menon PA - Physician Canvas Repairer Preoperative diagnosis: CAD Postoperative diagnosis: CAD, intraoperative [...] Operative Note Patient Name: Karlos Garcia : [id number] MR#: [id number] Case Date: 02/17/2024 Surgeon: Surgeons and Role: * Hayder Graham MD - Primary * Neftali Menon PA - Physician Canvas Repairer Preoperative diagnosis: CAD Postoperative diagnosis: CAD, intraoperative [...] PM EST Office Visit Cardiology at [address] [address] Sheila Johnson, MAURI [address] [facility] [place] [address] Scheduled Orders Name Type Priority Associated Diagnoses [...] Aortic Valve Open W Cardiopulmonary Bypass Homogrf/Stent (55797) Yes 02/17/2024 7:28 AM EDT CAD Cabg, Artery-Vein, Two (18692) Yes 02/17/2024 7:28 AM EDT CAD Cabg, Arterial, Single (54500) Yes 02/17/2024 7:28 AM EDT CAD Endoscopy W/Video-Asst Vein [place], Cabg (78041) Yes 02/17/2024 7:28 AM EDT CAD POCT [...] ORDERABLE S [facility] [place] [address] * (ABNORMAL) Basic Metabolic Panel (non-fasting) (02/23/2024 [...] CHEMISTRY ORDERABLES [facility] [place] [address] * Potassium (02/22/2024 4:30 AM EDT) Potassium [...] ORDERABLE S [facility] [place] [address] * (ABNORMAL) Basic Metabolic Panel (non-fasting) (02/21/2024 [...] Carpio MD CHEMISTRY ORDERABLES Performing Organization Address City/[facility]/ZIP Co de Phone Number [facility] [place] [address] * Lactate, whole blood, send to lab ([facility]) (02/21/2024 9:45 AM EDT) [facility] Lactate WB 2.0 0.5 - 2.2 mmol/L [facility] Blood 02/21/2024 9:45 AM EDT 02/21/2024 9:52 AM EDT Narrative Resulting Agency Comment Spec In Lab Hayder Graham MD CHEMISTRY ORDERABLE S Performing Organization Address [facility] Co de Phone Number [facility] [place] [address] * (ABNORMAL) Hepatic Function Panel (02/21/2024 9:45 AM EDT) [facility] Protein, Total 5.7(L) 6.1 - 8.0 g/dL [...] ORDERABLE S [facility] [place] [address] * Lipase (02/21/2024 9:45 AM EDT) Lipase 56 0 - 60 unit/L [facility] Blood 02/21/2024 9:45 AM EDT 02/21/2024 9:52 AM EDT Narrative Resulting Agency Comment Spec In Lab Hayder Graham MD CHEMISTRY ORDERABLE S Performing Organization Address City/[facility]/ZIP Co de Phone Number [facility] [place] [address] * Amylase (02/21/2024 9:45 AM EDT) Amylase 69 28 - 100 unit/L [facility] Blood 02/21/2024 9:45 AM EDT 02/21/2024 9:52 AM EDT Narrative Resulting Agency Comment Spec In Lab Hayder Graham MD CHEMISTRY ORDERABLE S Performing Organization Address [facility] Co de Phone Number [facility] [place] [address] * Potassium (02/21/2024 3:08 AM EDT) Potassium [...] MD CHEMISTRY ORDERABLE S Performing Organization Address City/[facility]/ZIP Co de Phone Number [facility] [place] [address] * XR Chest PA & Lateral (Generic) (02/20/2024 10:19 AM EDT) WORKSTATION ID [id number] RAD Anatomical Region Laterality Modality Chest N/A Digital Radiogra phy Impressions 02/20/2024 1:11 PM EDT Small pleural effusions. No pneumothorax Thank you for letting us participate in the care of this patient. ??If you are a health care provider and have any questions regarding this report, please contact the number below. ??For patients who have questions please contact the health critical care unit manager that requested your imaging first. ? Electronically signed by: Rogerio Cruz MD, [facility] ??([phone]), at 02/20/2024 1:11 PM Narrative 02/20/2024 1:11 PM EDT EXAMINATION: XR CHEST PA AND LATERAL (GENERIC) CLINICAL HISTORY: s/p AVR/CABGx3 TECHNIQUE: PA and lateral views of the chest COMPARISON: 02/17/2024 FINDINGS: Support devices: Interval removal of [place] catheter, endotracheal tube and mediastinal chest tubes The cardiac silhouette is stable status post median sternotomy, CABG and aortic valve replacement. There are small pleural effusions. No pneumothorax. Procedure Note Rogerio Cruz MD - 02/20/2024 EXAMINATION: XR CHEST PA AND LATERAL (GENERIC) CLINICAL HISTORY: s/p AVR/CABGx3 TECHNIQUE: PA and lateral views of the chest COMPARISON: 02/17/2024 FINDINGS: Support devices: Interval removal of [place] catheter, endotracheal tubeand mediastinal chest tubes [...] have questions please contactthe health critical care unit manager that requested your imaging first. Hayder Graham MD IMG DX ORDERABLES * Scan, Peripheral Blood (02/20/2024 4:23 AM EDT) Pathologist [facility] Plat estimate Decreased [facility] RBC Morphology Normal [facility] Blood 02/20/2024 4:23 AM EDT 02/20/2024 4:42 AM EDT Narrative Resulting Agency Comment Spec In Lab Minnie FRENCH HEMATOLOGY CECILIO ALEMAN [facility] [place] [address] * (ABNORMAL) Differential, Automated (02/20/2024 4:23 AM EDT) Pathologist [facility] Neutrophil % 81.7 % [facility] Neutrophil Absolute 10.37(H) 1.70 - 6.10 x10(3)/mc L [facility] Lymph % 7.4 % [facility] Lymphocytes Abs 0.9 0.9 - 3.2 x10(3)/mc L [facility] Monocyte % 9.7 % [facility] Monocyte Abs 1.2(H) 0.3 - 0.9 x10(3)/mc L [facility] Eos % 0.1 % [facility] Eosinophils Abs 0.0 0.0 - 0.4 x10(3)/mc L [facility] Basophil % 0.2 % [facility] [...] CECILIO ALEMAN [facility] [place] [address] * (ABNORMAL) Hemogram (02/20/2024 4:23 AM EDT) [...] CECILIO ALEMAN [facility] [place] [address] * (ABNORMAL) Basic Metabolic Panel (non-fasting) (02/20/2024 [...] ORDERABLE S Performing Organization Address [facility] Co de Phone Number [facility] [place] [address] * Potassium (02/19/2024 3:57 AM EDT) Potassium [...] ORDERABLE S Performing Organization Address [facility]/ZIP Co de Phone Number [facility] [place] [address] * POCT Glucose (02/18/2024 8:24 AM EDT) Glucose, POC 157 65 - 199 mg/dL [facility] Comment: Supplemental ranges: <140 mg/dL before meals <180 mg/dL all other times of the day Blood 02/18/2024 8:24 AM EDT 02/18/2024 8:24 AM EDT Hayder Graham MD POINT OF CARE TEST ORDERABLES [facility] [place] [address] * Scan, Peripheral Blood (02/18/2024 1:40 AM EDT) Plat estimate Decreased [facility] RBC Morphology Normal [facility] Blood 02/18/2024 1:40 AM EDT 02/18/2024 1:56 AM EDT Narrative Resulting Agency Comment Spec In Lab Neftali FRENCH HEMATOLOGY ORDER OLE Performing Organization Address City/[facility]/ZIP Co de Phone Number [facility] [place] [address] * (ABNORMAL) Differential, Automated (02/18/2024 1:40 AM EDT) [facility] Neutrophil % 87.1 % [facility] Neutrophil Absolute 15.03(H) 1.70 - 6.10 x10(3)/mc L [facility] Lymph % 3.0 % [facility] Lymphocytes Abs 0.5(L) 0.9 - 3.2 x10(3)/mc L [facility] Monocyte % 9.1 % [facility] Monocyte Abs 1.6(H) 0.3 - 0.9 x10(3)/mc L [facility] Eos % 0.0 % [facility] Eosinophils Abs 0.0 0.0 - 0.4 x10(3)/mc L [facility] Basophil % 0.2 % [facility] [...] ORDER OLE [facility] [place] [address] * (ABNORMAL) Hemogram (02/18/2024 1:40 AM EDT) [...] Standard Deviation 39.9 36.0 - 45.0 fL [facility] [...] ORDER OLE [facility] [place] [address] * (ABNORMAL) Basic Metabolic Panel (non-fasting) (02/18/2024 [...] ORDERABLE S [facility] [place] [address] * (ABNORMAL) Troponin (02/18/2024 1:40 AM EDT) [...] [facility] Test Catalog Reference: Fourth [place] Definition of Myocardial Infarction. Journal of the [place] College [employer]iology 2018;72:5100-9389 Blood 02/18/2024 1:40 AM EDT 02/18/2024 1:56 AM EDT Narrative Resulting Agency Comment Spec In Lab Hayder Graham MD CHEMISTRY ORDERABLE S Performing Organization Address [facility] Co de Phone Number [facility] [place] [address] * POCT Glucose (02/17/2024 8:13 PM EDT) Glucose, POC 142 65 - 199 mg/dL [facility] Comment: Supplemental ranges: <140 mg/dL before meals <180 mg/dL all other times of the day Blood 02/17/2024 8:13 PM EDT 02/17/2024 8:13 PM EDT Hayder Graham MD POINT OF CARE TEST ORDERABLES Performing Organization Address [facility] Co de Phone Number [facility] [place] [address] * POCT Glucose (02/17/2024 5:42 PM EDT) Glucose, POC 160 65 - 199 mg/dL [facility] Comment: Supplemental ranges: <140 mg/dL before meals <180 mg/dL all other times of the day Blood 02/17/2024 5:42 PM EDT 02/17/2024 5:42 PM EDT Hayder Graham MD POINT OF CARE TEST ORDERABLES Performing Organization Address [facility]/ZIP Co de Phone Number [facility] [place] [address] * Hemoglobin (02/17/2024 5:42 PM EDT) Hemoglobin 13.7 13.7 - 16.5 g/dL [facility] Blood 02/17/2024 5:42 PM EDT 02/17/2024 6:10 PM EDT Narrative Resulting Agency Comment Spec In Lab Hayder Graham MD HEMATOLOGY ORDERABL ES Performing Organization Address [facility] Co de Phone Number [facility] [place] [address] * Potassium (02/17/2024 5:42 PM EDT) Potassium [...] ORDERABLE S Performing Organization Address [facility] Co de Phone Number [facility] [place] [address] * (ABNORMAL) BLOOD GAS 2 ARTERIAL (02/17/2024 [...] Address City/State/[facility] Co de Phone Number [facility] [place] [address] * XR Chest One View (02/17/2024 1:44 PM EDT) [employer] WORKSTATION ID [id number] RAD Anatomical Region Laterality Modality Chest N/A Digital Radiogra phy Impressions 02/17/2024 2:12 PM EDT 1. ??No definite pleural fluid collection or pneumothorax. 2. ??Right IJ [place] catheter tip terminates in a descending [...] questions please contact the health critical care unit manager that requested your imaging first. ? Electronically signed by: Denzel Hankins MD, [facility] ??([phone]), at 02/17/2024 2:12 PM Narrative 02/17/2024 2:12 PM EDT EXAMINATION: XR CHEST ONE VIEW CLINICAL HISTORY: s/p avr/cabg eval effusions TECHNIQUE: 1 view of the chest COMPARISON: Chest x-ray 01/09/2024, chest CT 02/03/2024 FINDINGS: ET tube tip terminates 5.2 cm above the carlos. Right IJ [place]a catheter tip terminates in a descending [...] 5.2 cm above the carlos. Right IJ [place]-Ganzcatheter tip terminates in a descending branch [...] fluid collection or pneumothorax. 2. Right IJ [place] catheter tip terminates in a descending branch ofthe right pulmonary artery. Suggest catheter retraction. 3. Additional support lines and tubes as above. Thank you for letting us participate in the care of this patient. If youare a health care provider and have any questions regarding this report,please contact the number below. For patients who have questions please contactthe health critical care unit manager that requested your imaging first. Electronically signed by: Denzel Hankins MD, [facility]([phone]), at 02/17/2024 2:12 PM Hayder Graham MD [...] TEST ORDERABLES [facility] [place] [address] * (ABNORMAL) Coox2 (02/17/2024 1:21 PM EDT) [...] TEST ORDERABLES [facility] [place] [address] * (ABNORMAL) BLOOD GAS 2 ARTERIAL (02/17/2024 [...] TEST ORDERABLES Performing Organization Address [facility] Co de Phone Number [facility] [place] [address] * (ABNORMAL) Fibrinogen (02/17/2024 12:10 PM EDT) [...] ORDERABLE S Performing Organization Address [facility] Co de Phone Number [facility] [place] [address] * (ABNORMAL) Thrombin time (02/17/2024 12:10 PM [...] ORDERABLE S Performing Organization Address [facility] Co de Phone Number [facility] [place] [address] * APTT (02/17/2024 12:10 PM EDT) Partial [...] ORDERABLE S Performing Organization Address [facility]/ZIP Co de Phone Number [facility] [place] [address] * (ABNORMAL) Prothrombin Time (02/17/2024 12:10 PM [...] ORDERABLE S [facility] [place] [address] * (ABNORMAL) Hemogram (02/17/2024 12:10 PM EDT) [...] ORDERABLE S [facility] [place] [address] * (ABNORMAL) BLOOD GAS 2 ARTERIAL (02/17/2024 [...] [facility] Comment: Noted by instrument sterilizer. Please note: Patients with WBC >100,000 may [...] TEST ORDERABLES [facility] [place] [address] * (ABNORMAL) BLOOD GAS 2 ARTERIAL (02/17/2024 [...] [facility] Comment: Noted by instrument sterilizer. Please note: Patients with WBC >100,000 may [...] TEST ORDERABLES Performing Organization Address [facility]/ZIP Co de Phone Number [facility] [place] [address] * (ABNORMAL) Hemoglobin and Hematocrit, blood (02/17/2024 [...] MD HEMATOLOGY ORDERABL ES Performing Organization Address City/[facility]/ZIP Co de Phone Number [facility] [place] [address] * (ABNORMAL) Platelet count (02/17/2024 11:04 AM EDT) Platelet 106(L) 145 - 357 x10(3)/mc L [facility] Immature Plt % 1.6 0.0 - 7.4 % [facility] Comment: Limitation of the Immature Platelet Fraction (IPF)-May be less reliable when the platelet count is less than 62r609/uL due to statistical imprecision. The IPF value [...] in a decreased state of production. References: [employer] The Clinical Value of the Immature Platelet Fraction (IPF) in Cell Recovery Document Number [id number] 03/2011 [employer] The Role of the Immature Platelet Fraction (IPF) in the Differential Diagnosis of Thrombocytopenia, Document [id number] V002/15/14 P002/17 Blood 02/17/2024 11:0 4 AM EDT 02/17/2024 11:12 AM EDT Narrative Resulting Agency Comment Spec In Lab Hayder Graham MD HEMATOLOGY ORDERABL ES Performing Organization Address City/State/[facility] Co de Phone Number [facility] [place] [address] * (ABNORMAL) Fibrinogen (02/17/2024 11:04 AM EDT) [...] ORDERABL ES [facility] [place] [address] * (ABNORMAL) BLOOD GAS 2 ARTERIAL (02/17/2024 [...] TEST ORDERABLES [facility] [place] [address] * (ABNORMAL) BLOOD GAS 2 ARTERIAL (02/17/2024 [...] Address City/State/[facility] Co de Phone Number [facility] [place] [address] * Surgical Pathology Report (02/17/2024 10:01 AM EDT) Final Diagnosis [id number] ? Location: [facility]; [facility]; The signing pathologist has (i) examined the relevant preparation(s) for the specimen(s) and (ii) rendered or confirmed the diagnosis(es). . ?Surgical Pathology DIAGNOSIS Aortic valve leaflets, excision: Valve leaflets with myxoid degeneration, nodular fibrosis and dystrophic calcifications. Electronically signed by: ?Lindsay FERNANDEZ, Livier Gonzalez Verified: ??02/24/2024 13:49 ??Pathologist Performed at: ??-[facility] Dept. of Pathology, [place] [address] Refrigeration Houseman: Job Brewer MD, FCAP, ??CLIA Certificate: [id number] SPECIMEN(S) SUBMITTED A - Aortic Valve Leaflets, [...] Processing Blocks submitted for decalcification: A1. Food Handler sections in 1 cassette labeled A1. ??ajw 02/24/2024 1:49 PM EDT [facility] AORTIC STRUCTURE / Unknown 02/17/2024 10:01 AM EDT 02/17/2024 10:01 AM EDT Hayder Graham MD PATHOLOGY/CYTOLOGY ORDERABLES Performing Organization Address City/[facility]/ZIP Co de Phone Number [facility] [place] [address] * Specimen to Pathology (02/17/2024 10:01 AM EDT) AP Specimen 02/17/2024 10:0 1 AM EDT 02/17/2024 10:01 AM EDT Narrative [facility] - 02/17/2024 10:01 AM EDT Specimen requisition ordered. ??Separate Pathology report to follow Hayder Graham MD PATHOLOGY/CYTOLOGY ORDERABLES Performing Organization Address City/[facility]/ZIP Co de Phone Number [facility] [place] [address] * (ABNORMAL) BLOOD GAS 2 ARTERIAL (02/17/2024 [...] TEST ORDERABLES [facility] [place] [address] * (ABNORMAL) BLOOD GAS 2 VENOUS (02/17/2024 9:34 AM EDT) pH, Venous 7.22(Criti marquez) 7.32 - 7.42 [facility] Comment:Noted by instrument sterilizer. PCO2, Venous 43 41 - 51 mmHg [facility] Comment:Noted by instrument sterilizer. PO2, Venous 57(H) 25 - 40 mmHg [facility] Comment:Noted by instrument sterilizer. Bicarbonate, Venous 17.1 mmol/L [facility] Comment:Noted by instrument sterilizer. Base Excess, Venous -10.6 mmol/L [facility] Comment:Noted by instrument sterilizer. Hgb Blood Gas 11.2(L) 13.7 - 16.5 g/dL [facility] Comment:Noted by instrument sterilizer. Oxyhemoglobin, Venous 86.5 % [facility] Comment:Noted by instrument sterilizer. Carboxyhemoglob in, Venous 0.3 % [facility] Comment: Noted by instrument sterilizer. Nonsmokers: 0.5-1.5% COHB Smokers: Variable, but usually less than 10% Toxic: 20-30% COHB Lethal: Greater than 60% COHB Methemoglobin, Venous 0.0 <=1.5 % [facility] Comment:Noted by instrument sterilizer. Na Whole Blood 156(H) 135 - 145 mmol/L [facility] Comment:Noted by instrument sterilizer. K Whole Blood 5.5(H) 3.5 - 5.0 mmol/L [facility] Comment: Noted by instrument sterilizer. Please note: Patients with WBC >100,000 may have falsely elevated Potassium levels. Contact the Clinical Chemistry Laboratory if there are any questions. ICa Whole Blood 1.03(L) 1.15 - 1.33 mmol/L [facility] Comment: Noted by instrument sterilizer. Note: ??Total bilirubin higher than 20 mg/dL may lead to falsely low ionized calcium. CL Whole Blood 100 98 - 107 mmol/L [facility] Comment:Noted by instrument sterilizer. Gluc Whole Bld 132 65 - 199 mg/dL [facility] Comment: Noted by instrument sterilizer. Diabetes: >=200 mg/dL plus symptoms Lactate WB 1.0 0.5 - 2.2 mmol/L [facility] Comment:Noted by instrument sterilizer. Blood Gas Source Venous [facility] Blood 02/17/2024 9:34 AM EDT 02/17/2024 9:34 AM EDT Hayder Graham MD POINT OF CARE TEST ORDERABLES [facility] [place] [address] * (ABNORMAL) BLOOD GAS 2 ARTERIAL (02/17/2024 [...] TEST ORDERABLES Performing Organization Address [facility] Co de Phone Number [facility] [place] [address] * POCT Glucose (02/17/2024 6:38 AM EDT) Glucose, POC 98 65 - 199 mg/dL [facility] Comment: Supplemental ranges: <140 mg/dL before meals <180 mg/dL all other times of the day Blood 02/17/2024 6:38 AM EDT 02/17/2024 6:38 AM EDT Hayder Graham MD POINT OF CARE TEST ORDERABLES Performing Organization Address [facility] Co de Phone Number [facility] [place] [address] * Transesophageal Echo/OR (02/17/2024 6:33 AM EDT) [...] Routine documented in this encounter Care Teams Gear Setter Relationship Specialty Start Date End Date Aparna Jordan APRN PCP - General Family Medicine 10/21/23 05/26/24 documented as of this encounter
--- OUTSIDE RECORDS SUMMARY | 2024-11-05 10:03 | XMS_ITS | Encounter Summary ---
[place] [address] Care Team Providers Care Meter Installer Name Role Phone Aparna Jordan MAURI Primary Care Provider [phone] Reason for Referral * Diagnostic Test (Routine) - New Request Specialty Diagnoses / Procedures Referred By Contac t Referred To Contact Cardiology Diagnoses S/P AVR Procedures Echocardiogram Transthoracic Neftali Menon PA [facility] [place] [address] [facility] [place] [address] Referral ID Status Reason Start Date Expiration Date Visits Requested Visits Authorized [id number] New Request Specialty Service Requested 02/24/2024 02/23/2025 1 1 * Consultation (Routine) - Closed Specialty Diagnoses / Procedures Referred By Contac t Referred To Contact Cardiology Diagnoses S/P AVR Hayder Graham MD [facility] [place] [address] [address], [facility] [address] [place] [address] [place] [address] Referral ID Status Reason Start Date Expiration Date V isits Requested Visits Authorized [id number] Closed Consult, Test & Treat 02/24/2024 08/22/2024 36 36 * Home Health Care (Routine) - Closed Specialty Diagnoses / Procedures Referred By Sixto mendoza Referred To Contact Diagnoses S/P AVR Hayder Graham MD [facility] [place] [address] Referral ID Status Reason Start Date Expiration Date V isits Requested Visits Authorized [id number] Closed Consult, Test & Treat 02/24/2024 08/22/2024 [...] MD [facility] [place] [address] [facility] Referral ID Status Reason Start Date Expiration Date Visits Re quested Visits Authorized [id number] 1 1 Encounter Details Date Type Department Care Team (Latest Contact Info) Description 02/17/2024 5:43 AM EDT - 02/24/2024 11:23 AM EDT Hospital Encounter Heart and Vascular Unit Level 4 [place] [address] Hayder Graham MD [facility] [place] [address] S/P AVR (Primary Dx); Aortic valve stenosis, [...] Patient Age: 63 y.o. Birthdate: 1960 Language: Urdu Race: White Ethnicity: Not nor Admit Date: 02/17/2024 Discharge Date: 02/24/24 Attending Physician: Hayder Graham MD Follow-up Recommendations for Providers: Please continue routine management of cardiovascular risk factors including blood pressure, lipids,glucose, etc. Please note any changes to medications. Patient to follow up with PCP, Aparna Jordan APRN, in 1-2 weeks. Patient to follow up with Vice President Of Product Marketing, Neftali Ernandez MD , in 2 weeks. Patient to follow up with Cardiac Surgeon, Dr. Hayder Graham, with a chest x-ray, EKG, and Echo. Inpatient Provider Contact Information: [facility] Section of Cardiac Surgery [employer] [facility] [employer] [phone] FAX [phone] Discharge Diagnoses (Hospital Problems) Primary Diagnoses: /CAD [...] 33.75) performed by Hayder Graham MD at [facility] MAIN OR PRO CABG, ARTERY-VEIN, TWO N/A 02/17/2024 @CABG, TWO VENOUS GRAFTS & ARTERIAL GRAFT (WRVU 7.93) performed by Hayder Graham MD at [facility] MAIN OR PRO ENDOSCOPY W/VIDEO-ASST VEIN HARVEST, CABG Left 02/17/2024 ENDOSCOPIC HARVEST VEIN(S) FOR CABG (WRVU 0.31) performed by Hayder Graham MD at [facility] MAIN OR PRO REPLACEMENT PROSTHETIC AORTIC VALVE OPEN W CARDIOPULMONARY BYPASS HOMOGRF/STENT N/A 02/17/2024 @REPLACE AORTIC VALVE, OPEN, W\CPB, W\PROSTHETIC VALVE (WRVU 41.32) performed by Hayder Graham MD at [facility] MAIN OR Prior To Admission [...] insufficiency. He has glaucoma. He used to [employer] until about 15 years ago. He has undergone prior herniorrhaphy. 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 Major Procedures/Operations: 02/17/24 s/p avr/cabgx3 CABG x 3 JOSE->LAD SVG->dRCA SVG->OM1 EVH from LLE AVR with a 23 mm Inspiris Bioprosthesis Hospital Course: Karlos Garcia was admitted to [facility] on 02/17/2024 via the Same [...] Hayder Graham and/or the Cardiac Surgery Physician Cryptologic Technician Operator/Analyst Team may be reached at . Antibiotic [...] Dr. Hayder Graham. You may use a Marydel Track or treadmill but avoid any pulling [...] while being managed by your PCP and/or Vice President Of Product Marketing. For future medication refills, please refer to your PCP and/or Vice President Of Product Marketing after your discharge from our service. Thank you REMOVE CHEST TUBE SUTURES ON OR AFTER 03/02/24 Home oxygen therapy: N/A Follow up appointments: You should follow up with your PCP, Aparna Jordan APRN, in 1-2 weeks. Our office will schedule an appointment with your Vice President Of Product Marketing, Neftali Ernandez MD , in 2 weeks. You have an appointment with your Cardiac Surgeon, Dr. Hayder Graham, 4 weeks with a chest x-ray, EKG, and Echo before your appointment. Cardiac Rehabilitation: Karlos Garcia was seen regarding participation in the outpatient Phase 2Cardiac Rehabilitation at [facility]. The patient agrees to a referral to this program. The referral will be sent at discharge and the patient should be contacted by the Program within 1- 2 weeks from discharge. Future Appointments and Orders Future Orders Complete By Expires Echocardiogram Transthoracic [28399 CPT(R)] 03/26/2024 09/25/2024 Process Instructions: Scheduling Instructions: Questions: Where will study be performed?: [facility] Does the patient have Congenital Heart Disease?: Does patient require sedation?: Sedation rationale: XR Chest PA & Lateral (Generic) [28206 26425 Custom] 03/26/2024 09/25/2024 Process Instructions: Scheduling Instructions: Questions: Portable exam?: Reason for exam and clinical history: s/p avr/cabg Clinical information / jerome questions for radiologist: Stat read required?: Date of injury if applicable: Requested Time: Where will study be performed?: [facility] Radiology Referral to Cardiac Rehab [FDS668 Custom] As directed Process Instructions: If no progress note charted, please enter Clinical details in comments. Scheduling Instructions: Questions: My question or request is: s/p AVR/CABG. Cardiac rehab at [facility]. Referral to Home Health [REF34 Custom] As directed Process Instructions: If no progress note charted, please enter Clinical details in comments. Scheduling Instructions: Comments: Please evaluate Karlos Garcia for admission to Home Health. [address] Phone Number: Date of : 1960 Inpatient DOCUMENTATION FOR VNA SERVICES (INCLUDING THOSE PATIENTS WITH MEDICARE COVERAGE REQUIRING HOME VNA SERVICES AND/OR HOSPICE SERVICES) PATIENT'S LOCATION: Karlos Garcia [address] [employer] [phone] Film Projector Operator's Name: self/family In discussion with the attending physician, it is certified that this patient is under their care and that they, or a Nurse Practitioner, or Physician Cryptologic Technician Operator/Analyst who is working directly with them, hada [...] services as follows: HOME HEALTH AGENCY: [facility]. [address] [place] [address] RN orders: Cardiopulmonary assessment, incisional assessment, assess [...] issues please call the Cardiology Office at [phone] FOR MEDICARE ONLY: (please delete this section [...] care: As above. Signed: NEFTALI MENON PA-C [facility] Section of Cardiac Surgery [employer] [facility] [employer] [phone] FAX [phone] Date: 02/24/2024 CC: Aparna Jordan, MAURI Jordan, Aparna Sherman APRN [address] [place] [address] documented in this encounter Discharge Instructions * [...] Hayder Graham and/or the Cardiac Surgery Physician Cryptologic Technician Operator/Analyst Team may be reached at . Antibiotic [...] Dr. Hayder Graham. You may use a Marydel Track or treadmill but avoid any pulling [...] while being managed by your PCP and/or Vice President Of Product Marketing. For future medication refills, please refer to your PCP and/or Vice President Of Product Marketing after your discharge from our service. Thank you REMOVE CHEST TUBE SUTURES ON OR AFTER 03/02/24 Home oxygen therapy: N/A Follow up appointments: You should follow up with your PCP, Aparna Jordan APRN, in 1-2 weeks. Our office will schedule an appointment with your Vice President Of Product Marketing, Neftali Ernandez MD , in 2 weeks. You have an appointment with your Cardiac Surgeon, Dr. Hayder Graham, 4 weeks with a chest x-ray, EKG, and Echo before your appointment. Cardiac Rehabilitation: Karlos Garcia was seen regarding participation in the outpatient Phase 2Cardiac Rehabilitation at [facility]. The patient agrees to [...] 0600 and on the weekends please page [phone]. * Tiffanie Owens PTA - 02/22/2024 2:48 [...] d/c for 10 days. 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 * Kelley Hinson, RIGGING LOFT MECHANIC - 02/21/2024 10:15 AM EDT Physical Therapy [...] d/c for 10 days. 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 * Kelley Hinson PTA - 02/20/2024 3:32 PM EDT 02/20/24 4423 Evaluation & Treatment Document Type contact Total Minutes, Physical Therapy 0 Comment, Session Not Performed Checked in w/ pt this PM for ongoing PT services, pt politely declined, stating he had been dealing w/ nausea all day, made plan to see him tomorrow morning, will f/u at that time Kelley Hinson PTA Pager: [phone] Physical Therapy Inpatient Rehab Department * Louisa [...] 0600 and on the weekends please page [phone]. * Maris Benavides, PT - 02/19/2024 11:22 [...] d/c for 10 days. 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 Precautions/Special Considerations: STERNAL [...] outlined inthis evaluation. MARIS BENAVIDES, PT Pager: [phone] Physical Therapy Inpatient Rehabilitation Department Time IN / OUT: 5183-2914 Total Time: 38 (eval) minutes; * Antonio [...] 0600 and on the weekends please page [phone]. * Minnie Begum PA - 02/18/2024 8:25 [...] 0600 and on the weekends please page [phone]. * Kim Ha RCP - 02/17/2024 2:25 [...] plan since last visit. Hayder Graham MD [phone] Source Note - Hayder Graham MD - [...] insufficiency. He has glaucoma. He used to [employer] until about 15 years ago. He has [...] given written informed consent. Hayder Graham MD [phone] * Hayder Graham MD - 02/17/2024 7:00 [...] given written informed consent. Hayder Graham MD [phone] documented in this encounter Miscellaneous Notes * [...] information for follow-up Home Health & Hospice, [address] [place] [address] Cardiac Rehab, [facility] [address] [place] [address] Transportation: family or friend will provide Functional status prior to admission: Independent Home Environment: Others in the home: alone. Current Living Arrangements: home/apartment/condo. Accessibility Concerns:a few steps to enter 1 floor home. Current Functional Ability: Assistive Person and Equipment DME used at home: none DME Needed at Discharge: N/A Patient is insured through: Primary Insurance: [employer] Payor: [facility] / Plan: [facility] PPO / Product Type: *No [...] pain managed with scheduled Tylenol. Worked with [employer]. Ambulated in the roque multiple times during [...] anticipated Patient is insured through: Primary Insurance: [employer] Payor: [facility] / Plan: [facility] PPO / Product Type: *No [...] Physical Therapy, Registered Nurse Agency Referrals: [facility] [address] [address] Transportation: family or friend will provide Barriers to discharge: Discharge planning Plan going forward: Service Care Management will continue to follow and assist with discharge planning and coordination of care as indicated. Anticipated Date of Discharge: 02/22/2024 Rhett Bell RN RN/CM - Cellphone: [phone] Pager: [phone] Covering Service RN/CM * Plan of Care [...] the outpatient Phase 2 Cardiac Rehabilitation at [facility]. The patient agrees to [...] surrogate would be surrogate decision maker per [place] surrogate decision making law. (Only good for 180 days) Any patient receiving care in [place] must abide by [place] law. The hierarchy for surrogate decision making [...] In the past 12 months has the [employer], gas, oil, or water [employer] threatened to shut off services in your [...] confirmed as: [address] [facility] [address] Physical address: [address] [facility], [address] Social & Family Supports: All names listed [...] Information: none noted Health/Prescription Coverage: Primary Insurance: [facility] Payor: [facility] / Plan: [facility] PPO / Product Type: *No Product type* / Secondary Insurance: N/A ; Prescription Coverage: Yes Preferred Pharmacy: [id number] AT [facility] & [address] [address] [place] Status: Patient is a : No Primary Care Provider confirmed: Aparna Jordan, DINKEY DISPATCHER [phone] Patient/Caregiver Goals of Treatment: dc to home Potential Needs for Transition of Care: home health care Agency Referrals: I have met with the patient to: discuss discharge planning needs. provide the [facility], Office of Care Management letter from the [employer] Manager pertaining to rehab referrals. provide a letter describing our affiliations within the [facility] and educate about their right to choose where referrals are sent. provide a list of Home Health Agencies / Durable Medical Equipment vendors which serve their preferred geographic area. provided patient with [facility] Star Quality Rating handout. They have requested referrals to: [facility] Care Agency [facility]. [address] [place] [address] Note routed to a Informatics Manager who will communicate referrals to facilities [...] Reina Greene RN CM, BSN, CMGT- Ext [phone] * Plan of Care - Binta Trinidad [...] Operative Note Patient Name: Karlos Garcia DOB: [id number] MR#: [id number] Case Date: 02/17/2024 Surgeon: Surgeon(s) and Role: * Hayder Graham MD - Primary * Neftali Menon PA - Physician Cryptologic Technician Operator/Analyst Preoperative diagnosis: CAD Postoperative diagnosis: CAD, intraoperative [...] Operative Note Patient Name: Karlos Garcia : [id number] MR#: [id number] Case Date: 02/17/2024 Surgeon: Surgeons and Role: * Hayder Graham MD - Primary * Neftali Menon PA - Physician Cryptologic Technician Operator/Analyst Preoperative diagnosis: CAD Postoperative diagnosis: CAD, intraoperative [...] and Left pleural Disposition: [facility] Procedure Description: The patient was [...] 3:00 PM EST Office Visit Cardiology at [place] [address] [place] [id number] Sheila Johnson APRN [address] [facility] [address] Scheduled Orders Name Type Priority Associated Diagnoses [...] Aortic Valve Open W Cardiopulmonary Bypass Homogrf/Stent (57168) Yes 02/17/2024 7:28 AM EDT CAD Cabg, Artery-Vein, Two (16702) Yes 02/17/2024 7:28 AM EDT CAD Cabg, Arterial, Single (01364) Yes 02/17/2024 7:28 AM EDT CAD Endoscopy W/Video-Asst Vein [place], Cabg (41760) Yes 02/17/2024 7:28 AM EDT CAD POCT [...] CHEMISTRY ORDERABLE S [facility] [place] [address] * (ABNORMAL) Basic Metabolic Panel (non-fasting) (02/23/2024 [...] MD CHEMISTRY ORDERABLES [facility] [place] [address] * Potassium (02/22/2024 4:30 AM EDT) Potassium [...] CHEMISTRY ORDERABLE S [facility] [place] [address] * (ABNORMAL) Basic Metabolic Panel (non-fasting) (02/21/2024 [...] [facility]/ZIP Co de Phone Number [facility] [place] [address] * Lactate, whole blood, send to lab ([facility]) (02/21/2024 9:45 AM EDT) [facility] Lactate WB 2.0 0.5 - 2.2 mmol/L [facility] Blood 02/21/2024 9:45 AM EDT 02/21/2024 9:52 AM EDT Narrative Resulting Agency Comment Spec In Lab Hayder Graham MD CHEMISTRY ORDERABLE S Performing Organization Address City/[facility]/ZIP Co de Phone Number [facility] [place] [address] * (ABNORMAL) Hepatic Function Panel (02/21/2024 9:45 [...] [facility]/ZIP Co de Phone Number [facility] [place] [address] * Lipase (02/21/2024 9:45 AM EDT) Lipase 56 0 - 60 unit/L [facility] Blood 02/21/2024 9:45 AM EDT 02/21/2024 9:52 AM EDT Narrative Resulting Agency Comment Spec In Lab Hayder Graham MD CHEMISTRY ORDERABLE S Performing Organization Address [facility] Co de Phone Number [facility] [place] [address] * Amylase (02/21/2024 9:45 AM EDT) Amylase 69 28 - 100 unit/L [facility] Blood 02/21/2024 9:45 AM EDT 02/21/2024 9:52 AM EDT Narrative Resulting Agency Comment Spec In Lab Hayder Graham MD CHEMISTRY ORDERABLE S Performing Organization Address [facility] Co de Phone Number [facility] [place] [address] * Potassium (02/21/2024 3:08 AM EDT) Potassium 3.8 3.5 - 5.0 mmol/L ST [...] Hayder Graham MD CHEMISTRY ORDERABLE S [facility] [place] [address] * XR Chest PA & Lateral (Generic) (02/20/2024 10:19 AM EDT) WORKSTATION ID [id number] RAD Anatomical Region Laterality Modality Chest N/A [...] EDT) Pathologist [facility] Plat estimate Decreased [facility] RBC Morphology Normal [facility] Blood 02/20/2024 4:23 AM EDT 02/20/2024 4:42 AM EDT Narrative Resulting Agency Comment Spec In Lab Minnie FRENCH HEMATOLOGY CECILIO ALEMAN [facility] [place] [address] * (ABNORMAL) Differential, Automated (02/20/2024 4:23 AM EDT) [facility] Neutrophil % 81.7 % [facility] Neutrophil Absolute 10.37(H) 1.70 - 6.10 x10(3)/mc L [facility] Lymph % 7.4 % [facility] Lymphocytes Abs 0.9 0.9 - 3.2 x10(3)/mc L [facility] Monocyte % 9.7 % [facility] Monocyte Abs 1.2(H) 0.3 - 0.9 x10(3)/mc L [facility] Eos % 0.1 % [facility] Eosinophils Abs 0.0 0.0 - 0.4 x10(3)/[facility] Basophil % 0.2 % [facility] Baso Absolute 0.0 0.0 - 0.1 x10(3)/[facility] Immature Gran % 0.90 % [facility] Comment: Immature [...] HEMATOLOGY CECILIO ALEMAN [facility] [place] [address] * (ABNORMAL) Hemogram (02/20/2024 4:23 AM EDT) White Blood Cell 12.7(H) 4.0 - 9.5 x10(3)/[facility] Red Blood Cell 4.26(L) 4.58 - 5.54 x10(6)/ L [facility] Hemoglobin 12.3(L) [facility] NRBC% auto 0.0 % [facility] NRBC Absolute 0.000 0.000 - 0.000 x10(3)/mc L [facility] Blood 02/20/2024 4:23 AM EDT 02/20/2024 4:42 AM EDT Narrative Resulting Agency Comment Spec In Lab Minnie FRENCH HEMATOLOGY CECILIO ALEMAN [facility] [place] [address] * (ABNORMAL) Basic Metabolic Panel (non-fasting) (02/20/2024 [...] MD CHEMISTRY ORDERABLE S Performing Organization Address [facility]/ZIP Co de Phone Number [facility] [place] [address] * Potassium (02/19/2024 3:57 AM EDT) [facility] Signature Potassium 4.3 3.5 - 5.0 mmol/L ST [...] [facility]/ZIP Co de Phone Number [facility] [place] [address] * POCT Glucose (02/18/2024 8:24 AM EDT) [facility] Glucose, POC 157 65 - 199 mg/dL [facility] Comment: Supplemental ranges: <140 mg/dL before meals <180 mg/dL all other times of the day Blood 02/18/2024 8:24 AM EDT 02/18/2024 8:24 AM EDT Hayder Graham MD POINT OF CARE TEST ORDERABLES Performing Organization Address City/[facility]/ZIP Co de Phone Number [facility] [place] [address] * Scan, Peripheral Blood (02/18/2024 1:40 AM EDT) [facility] Plat estimate Decreased [facility] RBC Morphology Normal [facility] Blood 02/18/2024 1:40 AM EDT 02/18/2024 1:56 AM EDT Narrative Resulting Agency Comment Spec In Lab Neftali FRENCH HEMATOLOGY ORDER OLE Performing Organization Address City/[facility]/ZIP Co de Phone Number [facility] [place] [address] * (ABNORMAL) Differential, Automated (02/18/2024 1:40 AM EDT) [facility] Neutrophil % 87.1 % [facility] Neutrophil Absolute 15.03(H) 1.70 - 6.10 x10(3)/mc L [facility] Lymph % 3.0 % [facility] Lymphocytes Abs 0.5(L) 0.9 - 3.2 x10(3)/mc L [facility] Monocyte % 9.1 % [facility] Monocyte Abs 1.6(H) 0.3 - 0.9 x10(3)/mc L [facility] Eos % 0.0 % [facility] Eosinophils Abs 0.0 0.0 - 0.4 x10(3)/mc L [facility] Basophil % 0.2 % [facility] [...] FRENCH HEMATOLOGY ORDER OLE Performing Organization Address City/State/[facility] Co de Phone Number [facility] [place] [address] * (ABNORMAL) Hemogram (02/18/2024 1:40 AM EDT) White Blood Cell 17.2(H) 4.0 - 9.5 x10(3)/ L [facility] Red Blood Cell 4.71 4.58 - 5.54 x10(6)/mc L [facility] Hemoglobin 13.7 13.7 - 16.5 g/dL [facility] Hematocrit 39.2(L) 40.5 - 48.5 % [facility] Mean Cell Volume 83.2 82.9 - 93.[address] [facility] Mean Cell Hemoglobin 29.1 27.5 - 32.[address] [facility] Mean Cell Hemoglobin Concentration 34.9 32.0 - 35.7 g/dL [facility] Platelet 147 145 - 357 x10(3)/mc L [facility] RDW Standard Deviation 39.9 36.0 - 45.[address] [facility] RDW coefficient of variation 13.2 11.4 - 13.8 % [facility] Mean Platelet Volume 9.9 7.6 - 12.[address] [facility] NRBC% auto 0.0 % [facility] NRBC Absolute 0.000 0.000 - 0.000 x10(3)/mc L [facility] Blood 02/18/2024 1:40 AM EDT 02/18/2024 1:56 AM EDT Narrative Resulting Agency Comment Spec In Lab Neftali FRENCH HEMATOLOGY ORDER OLE [facility] [place] [address] * (ABNORMAL) Basic Metabolic Panel (non-fasting) (02/18/2024 [...] CHEMISTRY ORDERABLE S [facility] [place] [address] * (ABNORMAL) Troponin (02/18/2024 1:40 AM EDT) Pathologist [facility] Troponin-T, High Sensitivity 342(H) <=22 ng/L ST [...] [facility] Test Catalog Reference: Fourth [place] Definition of Myocardial Infarction. Journal of the [place] [employer] 2018;72:0303-8430 Blood 02/18/2024 1:40 AM EDT 02/18/2024 1:56 AM EDT Narrative Resulting Agency Comment Spec In Lab Hayder Graham MD CHEMISTRY ORDERABLE S Performing Organization Address City/[facility]/ZIP Co de Phone Number [facility] [place] [address] * POCT Glucose (02/17/2024 8:13 PM EDT) Glucose, POC 142 65 - 199 mg/dL [facility] Comment: Supplemental ranges: <140 mg/dL before meals <180 mg/dL all other times of the day Blood 02/17/2024 8:13 PM EDT 02/17/2024 8:13 PM EDT Hayder Graham MD POINT OF CARE TEST ORDERABLES Performing Organization Address [facility]/ZIP Co de Phone Number [facility] [place] [address] * POCT Glucose (02/17/2024 5:42 PM EDT) [...] [facility]/ZIP Co de Phone Number [facility] [place] [address] * Hemoglobin (02/17/2024 5:42 PM EDT) Hemoglobin 13.7 13.7 - 16.5 g/dL [facility] Blood 02/17/2024 5:42 PM EDT 02/17/2024 6:10 PM EDT Narrative Resulting Agency Comment Spec In Lab Hayder Graham MD HEMATOLOGY ORDERABL ES Performing Organization Address [facility] Co de Phone Number [facility] [place] [address] * Potassium (02/17/2024 5:42 PM EDT) Potassium [...] MD CHEMISTRY ORDERABLE S Performing Organization Address [facility] Co de Phone Number [facility] [place] [address] * (ABNORMAL) BLOOD GAS 2 ARTERIAL (02/17/2024 [facility] FIO2 Art 40 % [facility] PF Ratio Art [address] [facility] Blood 02/17/2024 4:18 PM EDT 02/17/2024 4:18 PM EDT Hayder Graham MD POINT OF CARE TEST ORDERABLES [facility] [place] [address] * XR Chest One View (02/17/2024 1:44 PM EDT) WORKSTATION ID [id number] RAD Anatomical Region Laterality Modality Chest N/A [facility] FIO2 Art 100 % [facility] PF Ratio Art 320 [facility] Blood 02/17/2024 1:31 PM EDT 02/17/2024 1:31 PM EDT Hayder Graham MD POINT OF CARE TEST ORDERABLES [facility] [place] [address] * (ABNORMAL) Coox2 (02/17/2024 1:21 PM EDT) [...] CARE TEST ORDERABLES [facility] [place] [address] * (ABNORMAL) BLOOD GAS 2 ARTERIAL (02/17/2024 [...] OF CARE TEST ORDERABLES Performing Organization Address [facility] de Phone Number [facility] [place] [address] * (ABNORMAL) Fibrinogen (02/17/2024 12:10 PM EDT) [...] MD HEMATOLOGY ORDERABLE S Performing Organization Address [facility] Co de Phone Number [facility] [place] [address] * (ABNORMAL) Thrombin time (02/17/2024 12:10 PM [...] HEMATOLOGY ORDERABLE S Performing Organization Address [facility] de Phone Number [facility] [place] [address] * APTT (02/17/2024 12:10 PM EDT) Partial [...] HEMATOLOGY ORDERABLE S Performing Organization Address [facility] de Phone Number [facility] [place] [address] * (ABNORMAL) Prothrombin Time (02/17/2024 12:10 PM [...] HEMATOLOGY ORDERABLE S [facility] [place] [address] * (ABNORMAL) Hemogram (02/17/2024 12:10 PM EDT) [facility] NRBC% auto 0.0 % [facility] NRBC Absolute 0.000 0.000 - 0.000 x10(3)/mc L [facility] Blood 02/17/2024 12:1 0 PM EDT 02/17/2024 12:19 PM EDT Narrative Resulting Agency Comment Spec In Lab Tara York MD HEMATOLOGY ORDERABLE S [facility] [place] [address] * (ABNORMAL) BLOOD GAS 2 ARTERIAL (02/17/2024 [...] [facility] Comment: Noted by percussion instrument repairer. Please note: Patients with WBC [...] 3 AM EDT 02/17/2024 11:43 AM EDT Haydre Graham MD POINT OF CARE TEST ORDERABLES [facility] [place] [address] * (ABNORMAL) BLOOD GAS 2 ARTERIAL (02/17/2024 [...] [facility] Comment: Noted by percussion instrument repairer. Please note: Patients with WBC [...] OF CARE TEST ORDERABLES Performing Organization Address [facility] Co de Phone Number [facility] [place] [address] * (ABNORMAL) Hemoglobin and Hematocrit, blood (02/17/2024 [...] [facility]/ZIP Co de Phone Number [facility] [place] [address] * (ABNORMAL) Platelet count (02/17/2024 11:04 AM EDT) Pathologist [facility] Platelet 106(L) 145 - 357 x10(3)/mc L [facility] Immature Plt % 1.6 0.0 - 7.4 % [facility] Comment: Limitation of the Immature Platelet Fraction (IPF)-May be less reliable when the platelet count is less than 79h148/uL due to statistical imprecision. The IPF value [...] in a decreased state of production. References: [employer] The Clinical Value of the Immature Platelet Fraction (IPF) in Cell Recovery Document Number [id number] 03/2011 [employer] The Role of the Immature Platelet Fraction (IPF) in the Differential Diagnosis of Thrombocytopenia, Document [id number] V002/15/14 P014 Blood 02/17/2024 11:0 4 AM EDT 02/17/2024 11:12 AM EDT Narrative Resulting Agency Comment Spec In Lab Hayder Graham MD HEMATOLOGY ORDERABL ES Performing Organization Address City/[facility]/ZIP Co de Phone Number [facility] [place] [address] * (ABNORMAL) Fibrinogen (02/17/2024 11:04 AM EDT) [facility] Fibrinogen 149(L) 200 - 393 mg/dL ST [...] HEMATOLOGY ORDERABL ES [facility] [place] [address] * (ABNORMAL) BLOOD GAS 2 ARTERIAL (02/17/2024 [...] OF CARE TEST ORDERABLES Performing Organization Address City/State/[facility] Co de Phone Number [facility] [place] [address] * (ABNORMAL) BLOOD GAS 2 ARTERIAL (02/17/2024 [...] CARE TEST ORDERABLES [facility] [place] [address] * Surgical Pathology Report (02/17/2024 10:01 AM EDT) Final Diagnosis [id number] ? Location: [facility]; [address] [place] [address] The signing pathologist has (i) examined the relevant preparation(s) for the specimen(s) and (ii) rendered or confirmed the diagnosis(es). . ?Surgical Pathology DIAGNOSIS Aortic valve leaflets, excision: Valve leaflets with myxoid degeneration, nodular fibrosis and dystrophic calcifications. Electronically signed by: ?Livier Montoya MD Verified: ??02/24/2024 13:49 ??Pathologist Performed at: ??[facility], [place] [address] [employer] Manager: Job Brewer MD, FCAP, ??CLIA Certificate: [id number] SPECIMEN(S) SUBMITTED A - Aortic Valve Leaflets, [...] Sections Processing Blocks submitted for decalcification: A1. Patient Registration Manager sections in 1 cassette labeled A1. ??ajw 02/24/2024 1:[address] [facility] AORTIC STRUCTURE / Unknown 02/17/2024 10:01 AM EDT 02/17/2024 10:01 AM EDT Hayder Graham MD PATHOLOGY/CYTOLOGY ORDERABLES [facility] [place] [address] * Specimen to Pathology (02/17/2024 10:01 AM EDT) AP Specimen 02/17/2024 10:0 1 AM EDT 02/17/2024 10:[address] [facility] - 02/17/2024 10:01 AM EDT Specimen requisition ordered. ??Separate Pathology report to follow Hayder Graham MD PATHOLOGY/CYTOLOGY ORDERABLES [facility] [place] [address] * (ABNORMAL) BLOOD GAS 2 ARTERIAL (02/17/2024 [...] CARE TEST ORDERABLES [facility] [place] [address] * (ABNORMAL) BLOOD GAS 2 VENOUS (02/17/2024 9:34 AM EDT) pH, Venous 7.22(Criti marquez) 7.32 - 7.42 [facility] Comment:Noted by percussion instrument repairer. PCO2, Venous 43 41 - [address] [facility] Comment:Noted by percussion instrument repairer. PO2, Venous 57(H) 25 - [address] [facility] Comment:Noted by percussion instrument repairer. Bicarbonate, Venous 17.1 mmol/L [facility] Comment:Noted by percussion instrument repairer. Base Excess, Venous -10.6 mmol/L [facility] Comment:Noted by percussion instrument repairer. Hgb Blood Gas 11.2(L) 13.7 - 16.5 g/dL [facility] Comment:Noted by percussion instrument repairer. Oxyhemoglobin, Venous 86.5 % [facility] Comment:Noted by percussion instrument repairer. Carboxyhemoglob in, Venous 0.3 % [facility] Comment: Noted by percussion instrument repairer. Nonsmokers: 0.5-1.5% COHB Smokers: Variable, but usually less than 10% Toxic: 20-30% COHB Lethal: Greater than 60% COHB Methemoglobin, Venous 0.0 <=1.5 % [facility] Comment:Noted by percussion instrument repairer. Na Whole Blood 156(H) 135 - 145 mmol/L [facility] Comment:Noted by percussion instrument repairer. K Whole Blood 5.5(H) 3.5 - 5.0 mmol/L [facility] Comment: Noted by percussion instrument repairer. Please note: Patients with WBC >100,000 may have falsely elevated Potassium levels. Contact the Clinical Chemistry Laboratory if there are any questions. ICa Whole Blood 1.03(L) 1.15 - 1.33 mmol/L [facility] Comment: Noted by percussion instrument repairer. Note: ??Total bilirubin higher than 20 mg/dL may lead to falsely low ionized calcium. CL Whole Blood 100 98 - 107 mmol/L [facility] Comment:Noted by percussion instrument repairer. Gluc Whole Bld 132 65 - 199 mg/dL [facility] Comment: Noted by percussion instrument repairer. Diabetes: >=200 mg/dL plus symptoms Lactate WB 1.0 0.5 - 2.2 mmol/L [facility] Comment:Noted by percussion instrument repairer. Blood Gas Source Venous [facility] Blood 02/17/2024 9:34 AM EDT 02/17/2024 9:34 AM EDT Hayder Graham MD POINT OF CARE TEST ORDERABLES [facility] [place] [address] * (ABNORMAL) BLOOD GAS 2 ARTERIAL (02/17/2024 [...] OF CARE TEST ORDERABLES Performing Organization Address [facility] de Phone Number [facility] [place] [address] * POCT Glucose (02/17/2024 6:38 AM EDT) Glucose, POC 98 65 - 199 mg/dL [facility] Comment: Supplemental ranges: <140 mg/dL before meals <180 mg/dL all other times of the day Blood 02/17/2024 6:38 AM EDT 02/17/2024 6:38 AM EDT Hayder Graham MD POINT OF CARE TEST ORDERABLES Performing Organization Address [facility] de Phone Number [facility] [place] [address] * Transesophageal Echo/OR (02/17/2024 6:33 AM EDT) [...] complete [facility] [...] dose on Sat02/17/24 at 1400, Until Discontinued, [place] teeth and / or gums. Scan the CHG vial in the [employer] Q-Care Oral Care Kit from floor stock. Ventilator-associated pneumonia prophylaxis For use in ICU/Critical care locations ONLY. Obtain kit from Floor Stock location. Scan CHG vial in the [employer] Q-Care Oral Care Kit, Routine Given 02/17/2024 [...] restart at 50% of previous rate. Call malt house kiln operator if goal not achieved at maximum [...] PHENYLephrine and/or vasopressin ineffective. Call pager # [phone] if initiated. Titrate to keep systolic blood [...] 2.0 L/min/M2. Maximum volume 2 L. Call malt house kiln operator for additional fluid orders: pager #[phone]. Rate/Dose Verify 02/18/2024 8:00 AM EDT 1 [...] Britton RN)1215 (Given - Provider: Reilly Vincent, CLOBY)1708 (Given - Provider: Ingrid Menjivar RN) 0000 [...] 50ml NS. 0121 (Given - Provider: Polo rBitton RN)0817 (Given - Provider: Reilly Vincent RN)1409 (Given - Provider: Ingrid Menjivar RN)2101 (Given - Provider: oPlo Britton RN) Linked Groups Order Group 1: [...] Routine documented in this encounter Care Teams Meter Installer Relationship Specialty Start Date End Date Aparna Jordan APRN PCP - General Family Medicine 10/21/23 05/26/24 documented as of this encounter
--- OUTSIDE RECORDS SUMMARY | 2024-11-05 10:04 | XMS_ITS | Encounter Summary ---
Author Organization [facility] [place] [address] Care Team Providers Care Awnings Mechanic Name Role Phone Vanessa Christian APRN Primary Care Provider [phone] Encounter Details Date Type Department Care Team [...] PM EST Office Visit Cardiology at [address] [address] Sheila Johnson APRN [address] [facility] [place] [address] documented as of this encounter Visit Diagnoses Not on filedocumented in this encounter Care Teams Awnings Mechanic Relationship Specialty Start Date End Date Vanessa Christian APRN PCP - General Family Medicine 10/21/23 05/26/24 documented as of this encounter
--- OUTSIDE RECORDS SUMMARY | 2024-11-05 10:04 | XMS_ITS | Encounter Summary ---
[place] [address] Care Team Providers Care Silk Screener Name Role Phone Vanessa Christian Lane DOTSON Primary Care Provider [phone] Reason for Referral * Diagnostic Test (Routine) - Closed Specialty Diagnoses / Procedures Referred By Contac t Referred To Contact Radiology Diagnoses Nonrheumatic aortic valve stenosis Procedures CT Chest wo Contrast (Generic) Louisa Cho PA [facility] [place] [address] [facility] [place] [address] Referral ID Status Reason Start Date Expiration Date V isits Requested Visits Authorized [id number] Closed Specialty Service Requested 01/10/2024 07/11/2025 1 1 Reason for Visit * Diagnostic Test (Routine) - Closed Specialty Diagnoses / Procedures Referred By Contac t Referred To Contact Radiology Diagnoses Nonrheumatic aortic valve stenosis Procedures CT Chest wo Contrast (Generic) Louisa Cho PA [facility] [place] [address] [facility] [place] [address] Referral ID Status Reason Start Date Expiration Date V isits Requested Visits Authorized [id number] Closed Specialty Service Requested 01/10/2024 07/11/2025 1 1 Encounter Details Date Type Department Care Team (Latest Contact Info) Description 02/03/2024 7:36 AM EDT - 02/03/2024 8:05 AM EDT Hospital Encounter CT Scan at [facility] [place] [address] Zak Farmer MD [facility] [place] [address] Nonrheumatic aortic valve stenosis Discharge Disposition: Home [...] 3:00 PM EST Office Visit Cardiology at [facility] [address] [place] [address] Sheila Johnson, POND TENDER [address] [facility] [place] [address] documented as of this encounter Procedures Procedure Name Priority Date/Time Associated Diagnosis Comments CT CHEST WO CONTRAST (GENERIC) Routine 02/03/2024 7:44 AM EDT Nonrheumatic aortic valve stenosis documented in this encounter Results * CT Chest wo Contrast (Generic) (02/03/2024 7:44 AM EDT) Pathologist [employer] WORKSTATION ID [id number] DH RAD Anatomical Region Laterality Modality Chest [...] who have questions please contact the health certified social workers in health care that requested your imaging first. [...] nodule along the minor fissure (series 302 [id number]) and a 8 mm right lower lobe [...] patients who have questions please contactthe health certified social workers in health care that requested your imaging first. Zak Farmer MD IMG CT ORDERABLES documented in this encounter Visit Diagnoses Diagnosis Nonrheumatic aortic valve stenosis Aortic valve disorders documented in this encounter Care Teams Silk Screener Relationship Specialty Start Date End Date Vanessa Christian APRN PCP - General Family Medicine 10/21/23 05/26/24 documented as of this encounter
--- OUTSIDE RECORDS SUMMARY | 2024-11-05 10:04 | XMS_ITS | Encounter Summary ---
Author Organization [facility] [place] [address] Care Team Providers Care Stacker Straightener Name Role Phone Victor M Lafleur MD Primary Care Provider [phone] Encounter Details Date Type Department Care Team (Late st Contact Info) Description 09/26/2023 Abstract Cardiology at [address] [address] Karen Billy, RN Nonrheumatic aortic [...] PM EST Office Visit Cardiology at [address] [address] Sheila Johnson APRN [address] [place] [address], [facility] CARDIOLOGY [place], [place] [id number] documented as of this encounter Visit Diagnoses Diagnosis Nonrheumatic aortic valve stenosis Aortic valve disorders Nevus of face Benign neoplasm of skin of other and unspecified parts of face documented in this encounter Care Teams Stacker Straightener Relationship Specialty Start Date End Date Victor M Lafleur MD PCP - General 10/02/13 10/20/23 documented as of this encounter
--- OUTSIDE RECORDS SUMMARY | 2024-11-05 10:04 | XMS_ITS | Encounter Summary ---
Author Organization [facility] [place] [address] Care Team Providers Care Uppers Edge Burnisher Name Role Phone Vanessa Christian MAURI Primary Care Provider [phone] Encounter Details Date Type Department Care Team (Late st Contact Info) Description 01/10/2024 Orders Only Motor [place] [id number] Lawson Napoles PA [facility] [place] [address] Screening for cardiovascular condition; Aortic valve stenosis, [...] PM EST Office Visit Cardiology at [address] [place] [phone] Sheila Johnson APRN [address] [facility] [facility] [address], [place] [address] documented as of this encounter Visit Diagnoses Diagnosis Screening for cardiovascular condition Screening for other and unspecified cardiovascular conditions Aortic valve stenosis, etiology of cardiac valve disease unspecified documented in this encounter Care Teams Uppers Edge Burnisher Relationship Specialty Start Date End Date Vanessa Christian APRN PCP - General Family Medicine 10/21/23 05/26/24 documented as of this encounter
--- OUTSIDE RECORDS SUMMARY | 2024-11-05 10:04 | XMS_ITS | Encounter Summary ---
Author Organization [facility] [place] [address] Care Team Providers Care Cathead Worker Name Role Phone Vanessa Christian MAURI Primary Care Provider [phone] Encounter Details Date Type Department Care Team (Late st Contact Info) Description 12/26/2023 Notes Only Cardiology at [address] [address] Neftali Ernandez MD [facility] [place] [address] Social History Tobacco Use Types Packs/Day Years [...] EDT Echocardiogram images reviewed from [facility]. Indeed, the aortic valve appears severely stenotic. Cannotrule out bicuspid valve documented in this encounter Plan of Treatment Upcoming Encounters Date Type Department Care Team (Late st Contact Info) Description 11/30/2024 3:00 PM EST Office Visit Cardiology at [address] [address] Sheila Johnson APRN [address] [place] [address], [facility] [place] [address] documented as of this encounter Visit Diagnoses Not on filedocumented in this encounter Care Teams Cathead Worker Relationship Specialty Start Date End Date Vanessa Christian APRN PCP - General Family Medicine 10/21/23 05/26/24 documented as of this encounter
--- OUTSIDE RECORDS SUMMARY | 2024-11-05 10:04 | XMS_ITS | Encounter Summary ---
Author Organization [facility] [place] [address] Care Team Providers Care Sports Clerk Name Role Phone Vanessa Christian APRN Primary Care Provider [phone] Encounter Details Date Type Department Care Team (Late st Contact Info) Description 10/21/2023 Abstract Cardiology at [address] [phone] Adam Mayes RN Social History Tobacco Use [...] PM EST Office Visit Cardiology at [address] [address] Sheila Johnson APRN [address] [facility] [place] [address] documented as of this encounter Visit Diagnoses Not on filedocumented in this encounter Care Teams Sports Clerk Relationship Specialty Start Date End Date Vanessa Christian APRN PCP - General Family Medicine 10/21/23 05/26/24 documented as of this encounter
--- OUTSIDE RECORDS SUMMARY | 2024-11-05 10:04 | XMS_ITS | Encounter Summary ---
Author Organization [facility] Address [facility] [place] [address] Care Team Providers Care Fuel Verification Technician Name Role Phone Vanessa Christian MAURI Primary Care Provider [phone] Reason for Visit * Consultation (Routine) - Closed Specialty Diagnoses / Procedures Referred By Contac t Referred To Contact Cardiac Surgery Diagnoses Nonrheumatic aortic valve stenosis significant - TAVR ( defers to Card Surg d/t age) Neftali Ernandez MD [facility] [place] [address] Zak Farmer MD [facility] [place] [address] Referral ID Status Reason Start Date Expiration Date V isits Requested Visits Authorized [id number] Closed Consult, Test & Treat 10/21/2023 10/20/2024 1 1 Encounter Details Date Type Department Care Team (Late st Contact Info) Description 01/09/2024 1:40 PM EDT Office [place] [address] Zak Farmer MD [facility] [place] [address] Nonrheumatic aortic valve stenosis Social [...] office. Best personal regards, Zak Farmer MD [phone] In aggregate 55 minutes were spent evaluating [...] 3:00 PM EST Office Visit Cardiology at [place] [address] [place] [address] Sheila Johnson, MAURI 580 [facility] [place] [address] documented as of this encounter Results * [...] who have questions please contact the health emergency care attendant that requested your imaging first. [...] patients who have questions please contactthe health emergency care attendant that requested your imaging first. [...] CHEMISTRY ORDERABLE S [facility] [place] [address] * Hepatic Function Panel (01/09/2024 2:58 PM [...] Performing Organization Address [facility] de Phone Number [facility] [place] [address] * Prothrombin Time (01/09/2024 2:58 PM EDT) [facility] Prothrombin Time 10.6 9.4 - 12.5 [...] Address City/[facility] Co de Phone Number [facility] [place] [address] * Type and Screen Future Surgery, [facility] SAME DAY PROGRAM ONLY) (01/09/2024 [...] Zak Farmer MD BLOOD BANK LAB ORDE [facility] Organization Address City/State/ZIP Co de Phone Number [facility] [place] [address] documented in this encounter Visit Diagnoses Diagnosis Nonrheumatic aortic valve stenosis Aortic valve disorders Nonrheumatic aortic valve stenosis Aortic valve disorders documented in this encounter Care Teams Fuel Verification Technician Relationship Specialty Start Date End Date Vanessa Christian, MAURI PCP - General Family Medicine 10/21/23 05/26/24 documented as of this encounter
--- OUTSIDE RECORDS SUMMARY | 2024-11-05 10:04 | XMS_ITS | Encounter Summary ---
Author Organization [facility] Address [facility] [place] [address] Care Team Providers Care Mask Designer Name Role Phone Vanessa Christian MAURI Primary Care Provider [phone] Encounter Details Date Type Department Care Team (Latest Contact Info) Description 01/09/2024 3:02 PM EDT - 01/09/2024 11:59 PM EDT Hospital Encounter XRay at [address] [place] [address] Zak Farmer MD [facility] [place] [address] Nonrheumatic aortic valve stenosis Discharge Disposition: Home [...] 3:00 PM EST Office Visit Cardiology at [place] [address] [place] [address] Sheila Johnson APRN 580 [facility], [facility] [place] [address] documented as of this encounter Procedures Procedure [...] who have questions please contact the health residential child care counselor that requested your imaging [...] patients who have questions please contactthe health residential child care counselor that requested your imaging first. Zak Farmer MD IMG DX ORDERABLES documented in this encounter Visit Diagnoses Diagnosis Nonrheumatic aortic valve stenosis Aortic valve disorders documented in this encounter Care Teams Mask Designer Relationship Specialty Start Date End Date Vanessa Christian APRN PCP - General Family Medicine 10/21/23 05/26/24 documented as of this encounter
--- OUTSIDE RECORDS SUMMARY | 2024-11-05 10:04 | XMS_ITS | Encounter Summary ---
Author Organization [facility] [place] [address] Care Team Providers Care Electrical Instrument Technician Name Role Phone Vanessa Christian MAURI [...] RHC (WRVU 5.9) Rima Dickinson MD [facility] [place] [address] [facility] Referral ID Status Reason Start Date Expiration Date Visits Re quested Visits Authorized [id number] 1 1 Encounter Details Date Type Department Care Team (Latest Contact Info) Description 02/03/2024 8:06 AM EDT - 02/03/2024 2:54 PM EDT Hospital Encounter [place] [address] Rima Dickinson MD [facility] [place] [address] Screening for cardiovascular condition; Aortic valve stenosis, [...] lbs Follow-up Visits Follow up with your community health navigator in 2-4 weeks Access Site 'Black and Blue' and tenderness is expected during the first week Call if you noted a mass (lump) greater than the size of a ellis Call Office with any Questions and if you have any of the following Clarence Lane M.D Interventional Grinder Set Up Operator Universal Top Lift Trimmer #: [phone] * Attachments The following attachments cannot be sent through Care Everywhere. * CAD (Coronary Artery Disease): General Info (Kiswahili) * Coronary Angiogram: Post-op (Kiswahili) documented in this encounter Medications at Time [...] Lane MD - 02/03/2024 11:48 AM EDT [facility] Interventional Cardiology Adult Pre-Procedure H&P Update: Cardiac Catheterization Karlos Anthony [id number] 1960 Chief Complaint: Aortic stenosis HPI: Mr. [...] is inthe chart Clarence Lane MD Interventional Grinder Set Up Operator Universal 02/03/24 11:48 AM documented in this encounter Miscellaneous Notes * Brief Op Note - Clarence Lane MD - 02/03/2024 12:51 PM EDT Preliminary Cardiac Catheterization Procedure Note: Patient Name: Karlos Anthony : [id number] MR#: [id number] Case Date: 02/03/2024 Top Lift Trimmer: Surgeon(s) and Role: * Saira Lua MD [...] 3:00 PM EST Office Visit Cardiology at [place] [address] [place] [phone] Sheila Johnson APRN 580 [facility], [facility] [place] [address] Scheduled Orders Name Type Priority Associated Diagnoses [...] Modality Other Narrative 02/12/2024 3:47 PM EDT ?[facility] ? Cardiac Catheterization/Intervention Report ? Patient Name: Raj, Karlos ? Procedure Date: 02/03/2024 ? A #: [id number] ? Primary Physician: Mogadam, Emad ? Case #: [id number] ? File Name: [id number] ? Catheterization Order Number: [id number] ? [facility] ? Final Report [place], [place] ? Patient Name: ? Karlos Patenaude ? ID#: ?[id number] ? : ?1960 ? Procedure Date: ? [...] Procedure Note Saira Lua MD - 02/12/2024 [facility] Cardiac Catheterization/Intervention Report Patient Name: Karlos Anthony Procedure Date: 02/03/2024 A #: [id number] Primary Physician: Saira Lua Case #: [id number] File Name: [id number] Catheterization Order Number: [id number] [facility] FinalReport [place], [place] Patient Name: Karlos Anthony ID#:[id number] :1960 Procedure Date: February 03, 2024 Case [...] was designated as ASA Class III. The [facility] clinical frailty scale is 3: [...] (Bezet) 372 ms MUSE SYSTEM Calculated P [place] 59 degrees MUSE SYSTEM Calculated R [place] 34 degrees MUSE SYSTEM Calculated T [place] 63 degrees MUSE SYSTEM INTERPRETATION Sinus bradycardia [...] MD) documented in this encounter Care Teams Electrical Instrument Technician Relationship Specialty Start Date End Date Vanessa Christian APRN PCP - General Family Medicine 10/21/23 05/26/24 documented as of this encounter
--- OUTSIDE RECORDS SUMMARY | 2024-11-05 10:04 | XMS_ITS | Encounter Summary ---
Author Organization [facility] Address [facility] Ivana linareseileen [place] [id number] Care Team Providers Care Logistics Team Leader Name Role Phone Vanessa Christian MAURI Primary Care Provider [phone] Reason for Referral * Consultation (Routine) - Closed Specialty Diagnoses / Procedures Referred By Contac t Referred To Contact Cardiac Surgery Diagnoses Nonrheumatic aortic valve stenosis significant - TAVR ( defers to Card Surg d/t age) Errol Loya MD [facility] [place] [address] Zak Farmer MD [facility] [place] [address] Referral ID Status Reason Start Date Expiration Date V isits Requested Visits Authorized [id number] Closed Consult, Test & Treat 10/21/2023 10/20/2024 1 1 Reason for Visit * Reason Comments Chest Pain Shortness of Breath Aortic Stenosis Encounter Details Date Type Department Care Team (Late st Contact Info) Description 10/21/2023 1:20 PM EST Office Visit Cardiology at [address] [address] Errol Loya MD [facility] [place] [address] Nonrheumatic aortic valve stenosis Social History Tobacco [...] Problem List Diagnosis Aortic stenosis 12/2022 TTE ([facility]): VITA 0.8-0.9 cm2 (MG 28 mmHg, DOI 3.6 m/s, SVI 35 cc/m2). Trace regurgitation. Normal bi-v s/f, no other valve findings Gastroesophageal reflux Nevus of face Right anabaptism Hypertension HLD (hyperlipidemia) MEDICATIONS: Current Outpatient Medications [...] the meantime will refer [place] [facility] [place] [...] the meantime will refer to T at [facility] for [...] PM EST Office Visit Cardiology at [address] [address] Sheila Johnson APRN 580 [facility], [facility] [place] [address] Scheduled Referrals Name Type Priority Associated Diagnoses Order Schedule Amb Referral to Structural Heart Outpatient Referral Routine Nonrheumatic aortic valve stenosis Ordered: 10/21/2023 documented as of this encounter Visit Diagnoses Diagnosis Nonrheumatic aortic valve stenosis Aortic valve disorders documented in this encounter Care Teams Logistics Team Leader Relationship Specialty Start Date End Date Vanessa Christian APRN PCP - General Family Medicine 10/21/23 05/26/24 documented as of this encounter
--- OUTSIDE RECORDS SUMMARY | 2024-11-05 10:04 | XMS_ITS | Encounter Summary ---
Author Organization [facility] [place] [address] Care Team Providers Care Rn Clinical Review Name Role Phone Vanessa Christian APRN Primary Care Provider [phone] Encounter Details Date Type Department Care Team [...] PM EST Office Visit Cardiology at [address] [place] [address] Sheila Johnson APRN [address] [facility], [facility] [place] [address] documented as of this encounter Visit Diagnoses Not on filedocumented in this encounter Care Teams Rn Clinical Review Relationship Specialty Start Date End Date Vanessa Christian APRN PCP - General Family Medicine 10/21/23 05/26/24 documented as of this encounter
--- OUTSIDE RECORDS SUMMARY | 2024-11-05 10:04 | XMS_ITS | Encounter Summary ---
Author Organization [facility] [place] [address] Care Team Providers Care Bow Maker Machine Tender Name Role Phone Vanessa Christian Lane DOTSON Primary Care Provider [phone] Encounter Details Date Type Department Care Team (Latest Contact Info) Description 01/09/2024 3:00 PM EDT Laboratory [place] [address] Nonrheumatic aortic valve stenosis Social History Tobacco Use Types Packs/Day Years Used Date Smoking Tobacco: Former Cigarettes Smokeless Tobacco: Never Comments:Quit 15 + years ago Alcohol Use Standard Drinks/Week Comments Yes 0 (1 standard drink = 0.6 oz pur e alcohol) rare [facility] Inpatient Questions Answer Date Recorded [...] 3:00 PM EST Office Visit Cardiology at [place] [address] [place] [phone] Sheila Johnson APRN 580 [facility], [place] [address] documented as of this encounter Procedures Procedure Name Priority Date/Time Associated Diagnosis Comments ABORH RECHECK STATUS Routine 01/09/2024 2:58 PM EDT HEMOGRAM Routine 01/09/2024 2:58 PM EDT Nonrheumatic aortic valve stenosis DIFFERENTIAL, AUTOMATED Routine 01/09/2024 2:58 PM EDT Nonrheumatic aortic valve stenosis TYPE AND SCREEN, SDP (FUTURE SURGERY, [facility] [place] SAME [...] LAB CECILIO ALEMAN [facility] [place] [address] * Differential, Automated (01/09/2024 2:58 PM EDT) Neutrophil % 70.5 % [facility] Neutrophil Absolute 4.34 1.70 - 6.10 x10(3)/[facility] LABORATORY Lymph % 18.9 % [facility] Lymphocytes Abs 1.2 0.9 - 3.2 x10(3)/[facility] LABORATORY Monocyte % 8.0 % [facility] Monocyte Abs 0.5 0.3 - 0.9 x10(3)/[facility] LABORATORY Eos % 1.6 % [facility] Eosinophils Abs 0.1 0.0 - 0.4 x10(3)/[facility] LABORATORY Basophil % 0.5 % [facility] Baso Absolute 0.0 0.0 - 0.1 x10(3)/[facility] LABORATORY Immature Gran % 0.50 % [facility] [...] 0.00 - 0.04 x10(3)/[facility] LABORATORY Blood 01/09/2024 2:58 PM EDT 01/09/2024 3:03 PM EDT Narrative Resulting Agency Comment Spec In Lab Zak Farmer MD HEMATOLOGY ORDERABL ES [facility] [place] [address] * Hemogram (01/09/2024 2:58 PM EDT) White Blood Cell 6.2 4.0 - 9.5 x10(3)/[facility] LABORATORY Red Blood Cell 5.53 4.58 - 5.54 x10(6)/[facility] LABORATORY Hemoglobin 16.1 13.7 - 16.5 g/dL [...] 145 - 357 x10(3)/[facility] LABORATORY RDW Standard Deviation 39.2 36.0 - 45.0 [facility] LABORATORY RDW coefficient of variation 12.6 11.4 - 13.8 % [facility] Mean Platelet Volume 9.5 7.6 - 12.9 [facility] LABORATORY NRBC% auto 0.0 % [facility] NRBC Absolute 0.000 0.000 - 0.000 x10(3)/[facility] LABORATORY Blood 01/09/2024 2:58 PM EDT 01/09/2024 3:03 PM EDT Narrative Resulting Agency Comment Spec In Lab Zak Farmer MD HEMATOLOGY ORDERABL ES [facility] [place] [address] * Basic Metabolic Panel (non-fasting) (01/09/2024 2:58 [...] CHEMISTRY ORDERABLE S [facility] [place] [address] * Hepatic Function Panel (01/09/2024 2:58 PM [...] CHEMISTRY ORDERABLE S Performing Organization Address [facility] Co de Phone Number [facility] [place] [address] * Prothrombin Time (01/09/2024 2:58 PM EDT) [...] MD HEMATOLOGY ORDERABL ES Performing Organization Address [facility] Co de Phone Number [facility] [place] [address] * Type and Screen Future Surgery, [facility] SAME DAY PROGRAM ONLY) (01/09/2024 2:58 PM EDT) Pathologist [facility] ABORH Type O NEGATIVE [facility] Patient BB History Not Found [facility] Expires at 2359 on: 02-20-2024 [facility] Ab Screen Interp Negative [facility] Blood 01/09/2024 2:58 PM EDT 01/09/2024 2:58 PM EDT Narrative Resulting Agency Comment Spec In Lab Zak Farmer MD BLOOD BANK LAB ORDE [facility] [place] [id number] documented in this encounter Visit Diagnoses Diagnosis Nonrheumatic aortic valve stenosis Aortic valve disorders documented in this encounter Care Teams Bow Maker Machine Tender Relationship Specialty Start Date End Date Vanessa Christian APRN PCP - General Family Medicine 10/21/23 05/26/24 documented as of this encounter
--- OUTSIDE RECORDS SUMMARY | 2024-11-05 10:04 | XMS_ITS | Encounter Summary ---
Author Organization [facility] [place] [address] Care Team Providers Care Ear Nose Throat Physician Name Role Phone Vanessa Christian Lane DOTSON Primary Care Provider [phone] Encounter Details Date Type Department Care Team (Late st Contact Info) Description 01/09/2024 2:30 PM EDT Clinical Support Same Day at [facility] [place] [phone] Social History Tobacco Use Types Packs/Day Years Used Date Smoking Tobacco: Former Cigarettes Smokeless Tobacco: Never Comments:Quit 15 + years ago Alcohol Use Standard Drinks/Week Comments Yes 0 (1 standard drink = 0.6 oz pur e alcohol) rare [facility] Inpatient Questions Answer Date Recorded [...] you tube link for a video about [facility] cardiac surgery. Instructed to bring the booklet [...] type and screen performed while in the [facility]. Sent to Radiology for chest x-ray. Special medication instructions: None Procedure date: not booked. Darian documented in this encounter Plan of Treatment Upcoming Encounters Date Type Department Care Team (Late st Contact Info) Description 11/30/2024 3:00 PM EST Office Visit Cardiology at [address] [address] Sheila Johnson APRN [address] [place] [address], [facility] [place] [address] documented as of this encounter Visit Diagnoses Not on filedocumented in this encounter Care Teams Ear Nose Throat Physician Relationship Specialty Start Date End Date Vanessa Christian APRN PCP - General Family Medicine 10/21/23 05/26/24 documented as of this encounter
--- OUTSIDE RECORDS SUMMARY | 2024-11-05 10:04 | XMS_ITS | Encounter Summary ---
[place] [address] Care Team Providers Care Gunstock Repairer Name Role Phone Vanessa Christian MAURI Primary Care Provider [phone] Reason for Visit * Auth/Cert (Routine) Specialty [...] (WRVU 5.9) Rima Dickinson MD [facility] [place] [address] [facility] Referral ID Status Reason Start Date Expiration Date Visits Re quested Visits Authorized [id number] 1 1 Encounter Details Date Type Department Care Team (Late st Contact Info) Description 02/03/2024 10:00 AM EDT - 02/03/2024 11:00 AM EDT Surgery [place] [address] Saira Lua MD CARDIAC CATHETERIZATION Social History [...] lbs Follow-up Visits Follow up with your gunstock repairer in 2-4 weeks Access Site 'Black and Blue' and tenderness is expected during the first week Call if you noted a mass (lump) greater than the size of a ellis Call Office with any Questions and if you have any of the following Clarence Lane M.D Interventional Oven Builder Supervisor International Reservations #: [phone] * Attachments The following attachments cannot be sent through Care Everywhere. * CAD (Coronary Artery Disease): General Info (Tanzanian) * Coronary Angiogram: Post-op (Tanzanian) documented in this encounter Medications at Time [...] Lane MD - 02/03/2024 11:48 AM EDT [facility] Interventional Cardiology Adult Pre-Procedure H&P Update: Cardiac Catheterization Karlos Anthony [id number] 1960 Chief Complaint: Aortic stenosis HPI: Mr. [...] is inthe chart Clarence Lane MD Interventional Oven Builder 02/03/24 11:48 AM documented in this encounter Miscellaneous Notes * Brief Op Note - Clarence Lane MD - 02/03/2024 12:51 PM EDT Preliminary Cardiac Catheterization Procedure Note: Patient Name: Karols Anthony : [id number] MR#: [id number] Case Date: 02/03/2024 Supervisor International Reservations: Surgeon(s) and Role: * Saira Lua MD [...] 3:00 PM EST Office Visit Cardiology at [place] [address] [place] [address] Sheila Johnson, MAURI 580 [facility], [facility] [place] [place] [address] Scheduled Orders Name Type Priority Associated Diagnoses [...] Modality Other Narrative 02/12/2024 3:47 PM EDT ?[facility] ? Cardiac Catheterization/Intervention Report ? Patient Name: Patenaude, Karlos ? Procedure Date: 02/03/2024 ? A #: [id number] ? Primary Physician: Saira Lua ? Case #: [id number] ? File Name: [id number] ? Catheterization Order Number: [id number] ? [facility] ? Final Report [place], [place] ? Patient Name: ? Karlos Patenaude ? ID#: ?[id number] ? : ?1960 ? Procedure Date: ? [...] Procedure Note Saira Lua MD - 02/12/2024 [facility] Cardiac Catheterization/Intervention Report Patient Name: Karlos Anthony Procedure Date: 02/03/2024 A #: [id number] Primary Physician: Saira Lua Case #: [id number] File Name: [id number] Catheterization Order Number: [id number] [facility] [place], [place] Patient Name: Karlos Anthony ID#:[id number] :1960 Procedure Date: February 03, 2024 Case [...] was designated as ASA Class III. The [facility] clinical frailty scale is 3: Managing [...] (Bezet) 372 ms MUSE SYSTEM Calculated P [place] 59 degrees MUSE SYSTEM Calculated R [place] 34 degrees MUSE SYSTEM Calculated T [place] 63 degrees MUSE SYSTEM INTERPRETATION Sinus bradycardia [...] (Intra-Procedure), Routine 1227 (Given - Provid er: Roegrio Oliveros) heparin (porcine) (1,000 units/mL) injection PRN, [...] MD) documented in this encounter Care Teams Gunstock Repairer Relationship Specialty Start Date End Date Vanessa Christian, MAURI PCP - General Family Medicine 10/21/23 05/26/24 documented as of this encounter
--- OUTSIDE RECORDS SUMMARY | 2024-11-05 10:04 | XMS_ITS | Encounter Summary ---
Author Organization [facility] Address [place] [address] Care Team Providers Care Kennel Manager Name Role Phone Vanessa Christian YOUTH SUPPORT WORKER Primary Care Provider [phone] Reason for Referral * Diagnostic Test (Routine) - Closed Specialty Diagnoses / Procedures Referred By Contac t Referred To Contact Radiology Diagnoses Nonrheumatic aortic valve stenosis Procedures CT Chest wo Contrast (Generic) Louisa Reid PA [facility] [place] [address] [facility] [place] [address] Referral ID Status Reason Start Date Expiration Date V isits Requested Visits Authorized [id number] Closed Specialty Service Requested 01/10/2024 07/11/2025 1 1 Encounter Details Date Type Department Care Team (Late st Contact Info) Description 01/09/2024 Orders Only [place] [address] Zak Farmer MD [facility] [place] [address] Nonrheumatic aortic valve stenosis Social History Tobacco [...] PM EST Office Visit Cardiology at [address] [address] Sheila Johnson APRN 580 [facility], [facility] [place] [address] documented as of this encounter Results * CT Chest wo Contrast (Generic) (02/03/2024 7:44 AM EDT) [employer] Signature WORKSTATION ID [id number] RAD Anatomical Region Laterality Modality Chest Computed [...] who have questions please contact the health senior care manager that requested your imaging first. [...] patients who have questions please contactthe health senior care manager that requested your imaging first. Zak Farmer MD IMG CT ORDERABLES documented in this encounter Visit Diagnoses Diagnosis Nonrheumatic aortic valve stenosis Aortic valve disorders Nonrheumatic aortic valve stenosis Aortic valve disorders documented in this encounter Care Teams Kennel Manager Relationship Specialty Start Date End Date Vanessa Christian APRN PCP - General Family Medicine 10/21/23 05/26/24 documented as of this encounter
--- OUTSIDE RECORDS SUMMARY | 2024-11-05 10:04 | XMS_ITS | Encounter Summary ---
Author Organization [facility] Address [facility] [place] [address] Care Team Providers Care Wagon Washer Name Role Phone Vanessa Christian MAURI Primary Care Provider [phone] Encounter Details Date Type Department Care Team (Late st Contact Info) Description 02/14/2024 Orders [place] [phone] Zak Farmer MD [facility] C[place]IOTHORACIC [place] [address] Coronary artery disease, unspecified vessel or lesion type, unspecified whether angina present, unspecified whether [place] or transplanted heart (Primary Dx) Social History [...] PM EST Office Visit Cardiology at [address] [place] [address] Sheila Johnson A, INVESTIGATIVE ASSISTANT [address] [facility], [address] A CARDIOLOGY [place], [place] [id number] documented as of this encounter Results * EKG 12 Lead (03/12/2024 2:35 PM EDT) Ventricular rate 59 BPM MUSE SYSTEM Atrial Rate 59 BPM MUSE SYSTEM P-R Interval 190 ms MUSE SYSTEM QRS Duration 92 ms MUSE SYSTEM Q-T Interval 406 ms MUSE SYSTEM QTC Calculated (Bezet) 401 ms MUSE SYSTEM Calculated P [place] -12 degrees MUSE SYSTEM Calculated R [place] 24 degrees MUSE SYSTEM Calculated T [place] 74 degrees MUSE SYSTEM INTERPRETATION Sinus bradycardia T wave abnormality, consider anterior ischemia Abnormal ECG When compared with ECG of 17-FEB-2024 13:24, [place] interval has decreased T wave inversion now evident in Anterior leads Confirmed by Paul Guzman ([id number]) on 03/15/2024 8:36:23 AM MUSE SYSTEM 03/12/2024 2:35 PM EDT 03/15/2024 8:36 AM EDT Zak Farmer MD ECG ORDERABLES MUSE SYSTEM * XR Chest PA & Lateral (Generic) (03/12/2024 1:42 PM EDT) WORKSTATION ID [id number] [facility] Anatomical Region Laterality Modality Chest N/A [...] signed by: Augie Sanchez MD, [facility] ([phone]), at 03/13/2024 8:28 AM Narrative 03/13/2024 8:28 AM EDT EXAMINATION: XR CHEST PA AND LATERAL (GENERIC) CLINICAL HISTORY: s/p cabg eval effusions I25.10, Atherosclerotic heart disease of [place] coronary artery without angina pectoris TECHNIQUE: PA [...] effusions I25.10, Atherosclerotic heart disease of [place] coronary artery withoutangina pectoris TECHNIQUE: PA and [...] signed by: Augie Sanchez MD, [facility]([phone]), at 03/13/2024 8:28 AM Zak Farmer MD IMG DX ORDERABLES documented in this encounter Visit Diagnoses Diagnosis Coronary artery disease, unspecified vessel or lesion type, unspecified whether angina present, unspecified whether [place] or transplanted heart- Primary Coronary artery disease, unspecified vessel or lesion type, unspecified whether angina present, unspecified whether [place] or transplanted heart documented in this encounter Care Teams Wagon Washer Relationship Specialty Start Date End Date Vanessa Christian APRN PCP - General Family Medicine 10/21/23 05/26/24 documented as of this encounter
--- OUTSIDE RECORDS SUMMARY | 2024-11-05 10:04 | XMS_ITS | Encounter Summary ---
Author Organization [facility] [place] [address] Care Team Providers Care Environmental Services Manager Name Role Phone Vanessa Christian MAURI Primary Care Provider [phone] Reason for Visit * Auth/Cert (Routine) Specialty Diagnoses / Procedures Referred By Contac t Referred To Contact Diagnoses CAD (coronary artery disease) CAD Procedures PRO ENDOSCOPY W/VIDEO-ASST VEIN HARVEST, CABG PRO CABG, ARTERIAL, SINGLE PRO CABG, ARTERY-VEIN, TWO ENDOSCOPIC HARVEST VEIN(S) FOR CABG (WRVU 0.31) @CABG, USING ARTERIAL GRAFT;SINGLE ARTERIAL GRAFT (WRVU 33.75) @CABG, TWO VENOUS GRAFTS & ARTERIAL GRAFT (WRVU 7.93) aZk Farmer MD [facility] [place] [address] [facility] Referral ID Status Reason Start Date Expiration Date Visits Re quested Visits Authorized [id number] 1 1 Encounter Details Date Type Department Care Team (Late st Contact Info) Description 02/17/2024 7:35 AM EDT Anesthesia Event Main Operating Room [facility] [place] [phone] Roman York MD [facility] [place] [address] Anesthesia Record Procedure Summary Procedure Name Responsible [...] by Sadiq Woo RN PIV 02/17/24; 0715; zsho-vkm-irtlvv catheter system; 18 gauge; cephalic vein (lateral [...] oz pur e alcohol) rare [facility] Utilities Answer Date Recorded In the past 12 months has th e electric, gas, oil, or water [employer] threatened to shut off services in your [...] Procedure Summary Date: 02/17/24 Room / Location: [facility] OR [address] [place] [address] MAIN OR Anesthesia Start: 734 Anesthesia Stop: [...] include unfiled device data. Patient Location: [facility] Level of Consciousness: Sedated (Pharmacologic/Intentional) [...] PM EST Office Visit Cardiology at [address] [place] [address] Sheila Johnson, FACILITY ATTENDANT 580 [facility], [place] [address] documented as of this encounter [...] mg documented in this encounter Care Teams Environmental Services Manager Relationship Specialty Start Date End Date Vanessa Christian APRN PCP - General Family Medicine 10/21/23 05/26/24 documented as of this encounter
--- OUTSIDE RECORDS SUMMARY | 2024-11-05 10:04 | XMS_ITS | Encounter Summary ---
Author Organization [facility] [place] [address] Care Team Providers Care Wide Area Network Engineer Name Role Phone Vanessa Christian APRN Primary Care Provider [phone] Encounter Details Date Type Department Care Team (Late st Contact Info) Description 10/21/2023 Abstract Cardiology at [address] [phone] Adam Mayes RN Social History Tobacco Use [...] PM EST Office Visit Cardiology at [address] [address] [address]N [address] [facility], [facility] [place] [address] documented as of this encounter Visit Diagnoses Not on filedocumented in this encounter Care Teams Wide Area Network Engineer Relationship Specialty Start Date End Date Vanessa Christian APRN PCP - General Family Medicine 10/21/23 05/26/24 documented as of this encounter
--- OUTSIDE RECORDS SUMMARY | 2024-11-05 10:04 | XMS_ITS | Encounter Summary ---
[place] [address] Care Team Providers Care County Or City Auditor Name Role Phone Victor M Lafleur MD Primary Care Provider [phone] Reason for Visit * Reason Onset Date Comments Referral 09/20/2023 Encounter Details Date Type Department Care Team (Late st Contact Info) Description 09/20/2023 Telephone Cardiology at [address] [address] Karen Billy, machine wedger Social History Tobacco Use Types Packs/Day Years [...] PM EST Office Visit Cardiology at [address] [address] Sheila Johnson, MAURI 580 [facility], [facility] [place] [address] documented as of this encounter Visit Diagnoses Not on filedocumented in this encounter Care Teams County Or City Auditor Relationship Specialty Start Date End Date Victor M Lafleur MD PCP - General 10/02/13 10/20/23 documented as of this encounter
--- OUTSIDE RECORDS SUMMARY | 2024-11-05 10:04 | XMS_ITS | Encounter Summary ---
Author Organization [facility] [place] [address] Care Team Providers Care Power Tong Operator Name Role Phone Vanessa Christian APRN Primary Care Provider [phone] Encounter Details Date Type Department Care Team [...] PM EST Office Visit Cardiology at [address] [phone] Sheila Johnson APRN 580 [facility], [facility] [place] [address] documented as of this encounter Visit Diagnoses Not on filedocumented in this encounter Care Teams Power Tong Operator Relationship Specialty Start Date End Date Vanessa Christian APRN PCP - General Family Medicine 10/21/23 05/26/24 documented as of this encounter
== END 2024-11-06 23:59 | disposition home or self-care (01) ==
LOC: CR 10:01
PROVIDERS: PCP Nurse Practitioner Family; Visit Provider Internal Medicine Cardiovascular Disease
DX: R69 Illness, unspecified (principal)

== ENCOUNTER 2024-11-26 10:00 | Outpatient (RCR) | payer SELFPAY ==
--- OUTSIDE RECORDS SUMMARY | 2024-11-10 10:21 | XMS_ITS | Clinical Summary ---
Author Organization [facility] Address [address] [place] [address] Care Team Providers Care Corporate Relations Director Name Role Phone Filidayna Vanessa Sherman NP Primary Care Provider [phone] Social History Tobacco Use Types Packs/Day Years [...] 75+ series) 2034 Insurance [employer] Care Teams Corporate Relations Director Relationship Specialty Start Date End Date Vanessa Christian, ANTWAN [address] [place] [phone] PCP - General Family Medicine - Primary Care 10/07/23
--- OUTSIDE RECORDS SUMMARY | 2024-11-10 10:21 | XMS_ITS | Encounter Summary ---
Author Organization [facility] Address [address] [place] [address] Care Team Providers Care Wastewater Project Engineer Name Role Phone Filidayna Vanessa Dayna MONCADA Primary Care Provider [phone] Encounter Details Date Type Department Care Team (Late st Contact Info) Description 10/24/2023 Lab Requisition [facility] Pathology & Laboratory Medicine - [address] [address] Oscar Nichole MD [address] [place] [id number] Factitial dermatitis Social History Tobacco Use Types [...] management options, if applicable. 10/28/2023 11:24 EST [facility] Final Diagnosis A. SKIN OF ROMAN CATHOLIC, LEFT, SHAVE BIOPSY: - Seborrheic keratosis, pigmented. 10/28/2023 11:24 EST [facility] Attestation By the signature below, the attending physician certifies that they have 1) personally conducted a gross and/or microscopic examination of the described specimen(s), and/or personally interpreted the results of laboratory testing of the described specimen(s), and 2) personally rendered or confirmed the above diagnosis. 10/28/2023 11:24 [facility] at [address] Microscopic Description The stratum corneum is thickened by compact and basketweave orthokeratosis with formation of horn pseudocysts. The epidermis is acanthotic with formation of broad and anastomosing trabeculae. The trabeculae are composed of basaloid keratinocytes with round uniform nuclei. The keratinocytes have a variable amount of melanin pigment. 10/28/2023 11:24 [facility] Clinical History Pigmented 2 cm patch; clinical diagnosis code: L98.1 10/28/2023 11:24 [facility] Gross Description A. Received in [...] [place] 10/25/2023 8:47 10/28/2023 11:24 [facility] Performing Lab [facility] 10/28/2023 11:24 [facility] Scanned Images 10/28/2023 11:24 [facility] Tissue SPECIMEN FROM SKIN / Unknown 10/24/2023 14:30 EST 10/24/2023 22:04 EST us Oscar Nichole MD PATHOLOGY ORDERABLES Final Resul t [facility] [address] [place] [address] documented in this encounter Visit Diagnoses Diagnosis Factitial dermatitis Dermatitis factitia (artefacta) documented in this encounter Care Teams Wastewater Project Engineer Relationship Specialty Start Date End Date Vanessa Christian NP [address] [place] [address] PCP - General Family Medicine - Primary Care 10/07/23 documented as of this encounter
--- OUTSIDE RECORDS SUMMARY | 2024-11-10 10:21 | XMS_ITS | Encounter Summary ---
Author Organization [facility] Address [facility] [place] [address] Care Team Providers Care Overage Shortage And Damage Clerk Name Role Phone Vanessa Christian MAURI Primary Care Provider [phone] Encounter Details Date Type Department Care Team (Latest Contact Info) Description 03/12/2024 1:30 PM EDT - 03/12/2024 11:59 PM EDT Hospital Encounter XRay at [address] [place] [address] Coronary artery disease, unspecified vessel or lesion type, unspecified whether angina present, unspecified whether [place] or transplanted heart Discharge Disposition: Home Social History Tobacco Use Types Packs/Day Years Used Date Smoking Tobacco: Former Cigarettes Smokeless Tobacco: Never Comments:Quit 15 + years ago Alcohol Use Standard Drinks/Week Comments Yes 0 (1 standard drink = 0.6 oz pur e alcohol) rare [facility] Utilities Answer Date Recorded In the past 12 months has e [employer], gas, oil, or water [employer] threatened to shut off services in your [...] 3:00 PM EST Office Visit Cardiology at [place] [address] [place] [address] Sheila Johnson, MAURI 580 [facility], [facility] [place] [place] [address] documented as of this encounter Procedures Procedure Name Priority Date/Time Associated Diagnosis Comments XR CHEST PA AND LATERAL Routine 03/12/2024 1:42 PM EDT Coronary artery disease, unspecified vessel or lesion type, unspecified whether angina present, unspecified whether [place] or transplanted heart documented in this encounter Results * XR Chest PA & Lateral (Generic) (03/12/2024 1:42 PM EDT) Pathologist [employer] WORKSTATION ID [id number] RAD Anatomical Region Laterality Modality Chest N/A [...] who have questions please contact the health disabilities caregiver that requested your imaging first. ? Electronically signed by: Augie Sanchez MD, [facility] ([phone]), at 03/13/2024 8:28 AM Narrative 03/13/2024 8:28 AM EDT EXAMINATION: XR CHEST PA AND LATERAL (GENERIC) CLINICAL HISTORY: s/p cabg eval effusions I25.10, Atherosclerotic heart disease of [place] coronary artery without angina pectoris TECHNIQUE: PA [...] eval effusions I25.10, Atherosclerotic heart disease of [place] coronary artery withoutangina pectoris TECHNIQUE: PA and [...] patients who have questions please contactthe health disabilities caregiver that requested your imaging first. Electronically signed by: Augie Sanchez MD, [facility]([phone]), at 03/13/2024 8:28 AM Zak Farmer MD IMG DX ORDERABLES documented in this encounter Visit Diagnoses Diagnosis Coronary artery disease, unspecified vessel or lesion type, unspecified whether angina present, unspecified whether [place] or transplanted heart documented in this encounter Care Teams Overage Shortage And Damage Clerk Relationship Specialty Start Date End Date Vanessa Christian APRN PCP - General Family Medicine 10/21/23 05/26/24 documented as of this encounter
--- OUTSIDE RECORDS SUMMARY | 2024-11-10 10:21 | XMS_ITS | Encounter Summary ---
Author Organization [facility] Address [facility] [place] [address] Care Team Providers Care Boilermaker Apprentice Name Role Phone Vanessa Christian Lane DOTSON Primary Care Provider [phone] Reason for Visit * Reason Comments Coronary Artery Disease Aortic Stenosis Encounter Details Date Type Department Care Team (Latest Contact Info) Description 05/27/2024 11:00 AM EDT Office Visit Cardiology at [address] [phone] [facility] [place] [address] ASCVD (arteriosclerotic cardiovascular disease); Nonrheumatic aortic valve stenosis Social History Tobacco Use Types Packs/Day Years Used Date Smoking Tobacco: Former Cigarettes Smokeless Tobacco: Never Comments:Quit 15 + years ago Alcohol Use Standard Drinks/Week Comments Yes 0 (1 standard drink = 0.6 oz pur e alcohol) rare [facility] Utilities Answer Date Recorded In the past 12 months has e [employer], gas, oil, or water [email or web address] threatened to shut off services in your [...] RCA Prox 70 02/2024: CABG x 3 (JSOE-LAD, SVG-RCA, SVG-OM1) at time of SAVR Nonrheumatic [...] PM EST Office Visit Cardiology at [address] [address] Sheila Johnson APRN 580 [facility], [facility] [place] [address] documented as of this encounter Visit Diagnoses Diagnosis ASCVD (arteriosclerotic cardiovascular disease) Unspecified cardiovascular disease Nonrheumatic aortic valve stenosis Aortic valve disorders documented in this encounter Care Teams Boilermaker Apprentice Relationship Specialty Start Date End Date Vanessa Christian APRN [address] [place] [address] PCP - General Family Medicine 05/27/24 documented as of this encounter
--- OUTSIDE RECORDS SUMMARY | 2024-11-10 10:21 | XMS_ITS | Clinical Summary ---
Author Organization [facility] Address [facility] [place] [address] Care Team Providers Care Lead Tinner Name Role Phone Vanessa Christian Lane DOTSON Primary Care Provider [phone] Allergies No known active allergies Medications Medication [...] meantime will refer to SHT at [facility] for further evaluation. Logistics and preliminary review of TONY were reviewed with patient. - Refer to SHT Hypertension 08/14/2023 Resolved Problems Problem Noted Date Diagnosed Date Resolved Date Nevus of face 09/26/2023 05/27/2024 Overview (09/26/2023): Right mormon Chest pressure 08/14/2023 10/21/2023 SILVA (dyspnea on [...] PM EST Office Visit Cardiology at [address] [phone] Sheila Johnson APRN 580 [facility], [place] [address] Health Maintenance Due Date Last Done Comments [...] series) 06/07/2024 Medical Devices Implanted Type Area Yarn Preparation Supervisor Device Identifier Shelf Expiration Date Model / Serial / Lot Cable,Cut,Edg ,Blnt,Ss,3tpr ([id number]) - [id number] Implanted:Qty : 1 on 02/17/2024 by Zak Farmer MD at [facility] IMPLANTS Midline: Chest [employer] - [id number] 09/02/2028 [id number] / / [id number] Valve Coronary Aortic 23mm Tissue Trnscath Biopros Inspiris ([id number]) (Autoreq) - [id number] Implanted:Qty : 1 on 02/17/2024 by Zak Farmer MD at [facility] IMPLANTS Heart [employer] - TSAI LI 09/15/2027 [id number] 23MM / [id number] / Advance Directives * Attempt Cardiopulmonary Resuscitation [...] Status decision made by: Patient Care Teams Lead Tinner Relationship Specialty Start Date End Date Vanessa Christian APRN [address] [place] [address] PCP - General Family Medicine 05/27/24
--- OUTSIDE RECORDS SUMMARY | 2024-11-10 10:21 | XMS_ITS | Encounter Summary ---
Author Organization Count Includes [facility] Address [facility] [place] [address] Care Team Providers Care Assistant Housekeeping Manager Name Role Phone Vanessa Christian TELEGRAPHIC SERVICE DISPATCHER Primary Care Provider [phone] Encounter Details Date Type Department Care Team (Late st Contact Info) Description 03/12/2024 2:40 PM EDT Office Visit [place] [phone] Zak Farmer MD [facility] [place] [address] Coronary artery disease, unspecified vessel or lesion type, unspecified whether angina present, unspecified whether [place] or transplanted heart Social History Tobacco Use Types Packs/Day Years Used Date Smoking Tobacco: Former Cigarettes Smokeless Tobacco: Never Comments:Quit 15 + years ago Alcohol Use Standard Drinks/Week Comments Yes 0 (1 standard drink = 0.6 oz pur e alcohol) rare [facility] Utilities Answer Date Recorded In the past 12 months has e [employer] gas, oil, or water [employer] threatened to shut off services in your [...] 2:40 PM EDT To: MD Vanessa Coles, TELEGRAPHIC SERVICE DISPATCHER Re; Karlos Santa ( 1960) We had [...] office. Best personal regards, Zak Farmer MD [phone] documented in this encounter Plan of Treatment Upcoming Encounters Date Type Department Care Team (Late st Contact Info) Description 11/30/2024 3:00 PM EST Office Visit Cardiology at [place] [address] [place] [address] Sheila Johnson, MAURI [address] [facility] [place] [address] documented as of this encounter Procedures Procedure Name Priority Date/Time Associated Diagnosis Comments EKG 12-LEAD Routine 03/12/2024 2:35 PM EDT Coronary artery disease, unspecified vessel or lesion type, unspecified whether angina present, unspecified whether [place] or transplanted heart documented in this encounter Results * EKG 12 Lead (03/12/2024 2:35 PM EDT) Ventricular rate 59 BPM MUSE SYSTEM Atrial Rate 59 BPM MUSE SYSTEM P-R Interval 190 ms MUSE SYSTEM QRS Duration 92 ms MUSE SYSTEM Q-T Interval 406 ms MUSE SYSTEM QTC Calculated (Bezet) 401 ms MUSE SYSTEM Calculated P [place] -12 degrees MUSE SYSTEM Calculated R [place] 24 degrees MUSE SYSTEM Calculated T [place] 74 degrees MUSE SYSTEM INTERPRETATION Sinus bradycardia T wave abnormality, consider anterior ischemia Abnormal ECG When compared with ECG of 17-FEB-2024 13:24, [place] interval has decreased T wave inversion now evident in Anterior leads Confirmed by Paul Guzman ([id number]) on 03/15/2024 8:36:23 AM MUSE SYSTEM 03/12/2024 2:35 PM EDT 03/15/2024 8:36 AM EDT Zak Farmer MD ECG ORDERABLES MUSE SYSTEM documented in this encounter Visit Diagnoses Diagnosis Coronary artery disease, unspecified vessel or lesion type, unspecified whether angina present, unspecified whether [place] or transplanted heart documented in this encounter Care Teams Assistant Housekeeping Manager Relationship Specialty Start Date End Date Vanessa Christian APRN PCP - General Family Medicine 10/21/23 05/26/24 documented as of this encounter
--- OUTSIDE RECORDS SUMMARY | 2024-11-10 10:21 | XMS_ITS | Encounter Summary ---
Author Organization [facility] Address [facility] [place] [address] Care Team Providers Care Etcher Enameling Name Role Phone Vanessa Christian MAURI Primary Care Provider Encounter Details Date Type Department Care Team (Latest Contact Info) Description 05/27/2024 Travel Social History Tobacco Use Types Packs/Day Years Used Date Smoking Tobacco: Former Cigarettes Smokeless Tobacco: Never Comments:Quit 15 + years ago Alcohol Use Standard Drinks/Week Comments Yes 0 (1 standard drink = 0.6 oz pur e alcohol) rare [facility] Utilities Answer Date Recorded [...] PM EST Office Visit Cardiology at [address] [phone] Sheila Johnson APRN [address] [place] [address], [facility] [place] [address] documented as of this encounter Visit Diagnoses Not on filedocumented in this encounter Care Teams Etcher Enameling Relationship Specialty Start Date End Date Vanessa Christian APRN [address] [place] [address] PCP - General Family Medicine 05/27/24 documented as of this encounter
--- OUTSIDE RECORDS SUMMARY | 2024-11-10 10:21 | XMS_ITS | Encounter Summary ---
Author Organization [facility] Address [facility] [place] [address] Care Team Providers Care Recovery Room Rn Name Role Phone Vanessa Christian MAURI Primary Care Provider [phone] Encounter Details Date Type Department Care Team [...] PM EST Office Visit Cardiology at [address] [phone] Sheila Johnson APRN [address] [place] [address], [facility] [place] [address] documented as of this encounter Visit Diagnoses Not on filedocumented in this encounter Care Teams Recovery Room Rn Relationship Specialty Start Date End Date Vanessa Christian APRN PCP - General Family Medicine 10/21/23 05/26/24 documented as of this encounter
--- OUTSIDE RECORDS SUMMARY | 2024-11-10 10:21 | XMS_ITS | Encounter Summary ---
Author Organization [facility] Address [facility] [place] [address] Care Team Providers Care Green House Manager Name Role Phone Vanessa Christian MAURI Primary Care Provider [phone] Encounter Details Date Type Department Care Team [...] PM EST Office Visit Cardiology at [address] [phone] Sheila Johnson APRN [address] [place] [address], [facility] [address] documented as of this encounter Visit Diagnoses Not on filedocumented in this encounter Care Teams Green House Manager Relationship Specialty Start Date End Date Vanessa Christian APRN PCP - General Family Medicine 10/21/23 05/26/24 documented as of this encounter
--- OUTSIDE RECORDS SUMMARY | 2024-11-10 10:21 | XMS_ITS | Encounter Summary ---
Author Organization [facility] Address [facility] [place] [address] Care Team Providers Care Radio Communications Superintendent Name Role Phone Gino Vanessa Lane DOTSON Primary Care Provider [phone] Encounter Details Date Type Department Care Team (Late st Contact Info) Description 02/24/2024 Orders Only Cardiac Surgery [facility] [place] [phone] Trudi Lester APRN [facility] [place] [address] Social History Tobacco Use Types Packs/Day Years Used Date Smoking Tobacco: Former Cigarettes Smokeless Tobacco: Never Comments:Quit 15 + years ago Alcohol Use Standard Drinks/Week Comments Yes 0 (1 standard drink = 0.6 oz pur e alcohol) rare [facility] Utilities Answer Date Recorded In the past 12 months has e [employer] gas, oil, or water [employer] threatened to shut off services in [...] PM EST Office Visit Cardiology at [address] [phone] Sheila Johnson APRN [address] [place] [address], [facility] [address] documented as of this encounter Visit Diagnoses Not on filedocumented in this encounter Care Teams Radio Communications Superintendent Relationship Specialty Start Date End Date Vanessa Christian APRN PCP - General Family Medicine 10/21/23 05/26/24 documented as of this encounter
--- OUTSIDE RECORDS SUMMARY | 2024-11-10 10:21 | XMS_ITS | Referral Summary ---
Author Organization [facility] Address [address] [place] [address] Care Team Providers Care It Investment/Portfolio Manager Name Role Phone Vanessa Christian Lane MONCADA Primary Care Provider [phone] Social History Tobacco Use Types Packs/Day Years Used Date Smoking Tobacco: Never Assessed Sex and Gender Information Value Date Recorded Sex Assigned at Not on file Legal Sex Male 22:02 EST Gender Identity Not on file Sexual Orientation Not on file Plan of Treatment Not on file Insurance R Care Teams It Investment/Portfolio Manager Relationship Specialty Start Date End Date Vanessa Christian, ANTWAN [address] [place] [phone] PCP - General Family Medicine - Primary Care 10/07/23
--- OUTSIDE RECORDS SUMMARY | 2024-11-10 10:22 | XMS_ITS | Encounter Summary ---
[facility] [place] [address] Care Team Providers Care Furnace Maintenance Name Role Phone Aparna Jordan MAURI Primary Care Provider [phone] Reason for Visit * Auth/Cert (Routine) Specialty [...] GRAFT (WRVU 7.93) Hayder Graham MD [facility] [place] [address] [facility] Referral ID Status Reason Start Date Expiration Date Visits Re quested Visits Authorized [id number] 1 1 Encounter Details Date Type Department Care Team (Late st Contact Info) Description 02/17/2024 7:30 AM EDT - 02/17/2024 1:26 PM EDT Surgery [place] [id number] Hayder Graham MD [facility] [place] [address] ENDOSCOPIC HARVEST VEIN(S) FOR CABG (WRVU 0.31) [...] Patient Age: 63 y.o. Birthdate: 1960 Language: Palestinian Race: White Ethnicity: Not nor Admit Date: 02/17/2024 Discharge Date: 02/24/24 Attending Physician: Hayder Graham MD Follow-up Recommendations for Providers: Please continue routine management of cardiovascular risk factors including blood pressure, lipids,glucose, etc. Please note any changes to medications. Patient to follow up with PCP, Aparna Jordan APRN, in 1-2 weeks. Patient to follow up with Frame Repairer, Neftali Ernandez MD , in 2 weeks. Patient to follow up with Cardiac Surgeon, Dr. Hayder Graham, with a chest x-ray, EKG, and Echo. 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 Past Surgical History: Procedure Laterality Date PRO CABG, ARTERIAL, SINGLE N/A 02/17/2024 @CABG, USING ARTERIAL GRAFT;SINGLE ARTERIAL GRAFT (WRVU 33.75) performed by Hayder Graham MD at [facility] MAIN OR PRO CABG, ARTERY-VEIN, TWO N/A 02/17/2024 @CABG, TWO VENOUS GRAFTS & ARTERIAL GRAFT (WRVU 7.93) performed by Hayder Graham MD at [facility] MAIN OR PRO ENDOSCOPY W/VIDEO-ASST VEIN HARVEST, CABG Left 02/17/2024 ENDOSCOPIC HARVEST VEIN(S) FOR CABG (WRVU 0.31) performed by Hayder Graham MD at [facility] MAIN OR PRO REPLACEMENT PROSTHETIC AORTIC VALVE OPEN W CARDIOPULMONARY BYPASS HOMOGRF/STENT N/A 02/17/2024 @REPLACE AORTIC VALVE, OPEN, W\CPB, W\PROSTHETIC VALVE (WRVU 41.32) performed by Hayder Graham MD at [facility] MAIN OR Prior To Admission [...] insufficiency. He has glaucoma. He used to [employer] until about 15 years ago. He has undergone prior herniorrhaphy. 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 Major Procedures/Operations: 02/17/24 s/p avr/cabgx3 CABG x 3 JOSE->LAD SVG->dRCA SVG->OM1 EVH from LLE AVR with a 23 mm Inspiris Bioprosthesis Hospital Course: Karlos Garcia was admitted to [facility] on 02/17/2024 via the Same [...] Hayder Graham and/or the Cardiac Surgery Physician Production Service Manager Team may be reached at . [...] Dr. Hayder Graham. You may use a [place] Track or treadmill but avoid any pulling [...] while being managed by your PCP and/or Frame Repairer. For future medication refills, please refer to your PCP and/or Frame Repairer after your discharge from our service. Thank you REMOVE CHEST TUBE SUTURES ON OR AFTER 03/02/24 Home oxygen therapy: N/A Follow up appointments: You should follow up with your PCP, Aparna Jordan APRN, in 1-2 weeks. Our office will schedule an appointment with your Frame Repairer, Neftali Ernandez MD , in 2 weeks. You have an appointment with your Cardiac Surgeon, Dr. Hayder Graham, 4 weeks with a chest x-ray, EKG, and Echo before your appointment. Cardiac Rehabilitation: Karlos Garcia was seen regarding participation in the outpatient Phase 2Cardiac Rehabilitation at [facility]. The patient agrees to a referral to this program. The referral will be sent at discharge and the patient should be contacted by the Program within 1- 2 weeks from discharge. Future Appointments and Orders Future Orders Complete By Expires Echocardiogram Transthoracic [16113 CPT(R)] 03/26/2024 09/25/2024 Process Instructions: Scheduling Instructions: Questions: Where will study be performed?: [facility] [place] Clinics Does the patient have Congenital Heart Disease?: Does patient require sedation?: Sedation rationale: XR Chest PA & Lateral (Generic) [31282 28560 Custom] 03/26/2024 09/25/2024 Process Instructions: Scheduling Instructions: Questions: Portable exam?: Reason for exam and clinical history: s/p avr/cabg Clinical information / jerome questions for radiologist: Stat read required?: Date of injury if applicable: Requested Time: Where will study be performed?: [facility] Radiology Referral to Cardiac Rehab [[id number] Custom] As directed Process Instructions: If no progress note charted, please enter Clinical details in comments. Scheduling Instructions: Questions: My question or request is: s/p AVR/CABG. Cardiac rehab at [facility]. Referral to Home Health [REF34 Custom] As directed Process Instructions: If no progress note charted, please enter Clinical details in comments. Scheduling Instructions: Comments: Please evaluate Karlos Garcia for admission to Home Health. [address] Phone Number: Date of : 1960 Inpatient DOCUMENTATION FOR VNA SERVICES (INCLUDING THOSE PATIENTS WITH MEDICARE COVERAGE REQUIRING HOME VNA SERVICES AND/OR HOSPICE SERVICES) PATIENT'S LOCATION: Karlos Garcia [address] [employer] [phone] Golf Course Ranger's Name: self/family In discussion with the attending physician, it is certified that this patient is under their care and that they, or a Nurse Practitioner, or Physician Production Service Manager who is working directly with them, [...] for services as follows: HOME HEALTH AGENCY: [facility] [address] [place] [phone] RN orders: Cardiopulmonary assessment, incisional assessment, assess [...] issues please call the Cardiology Office at [phone] FOR MEDICARE ONLY: (please delete this section [...] As above. Signed: NEFTALI MENON PA-C [facility] Section of Cardiac Surgery [facility] [place] [address] FAX [phone] Date: 02/24/2024 CC: Aparna Jordan, MAURI Jordan, Aparna Sherman APRN [address] [place] [address] documented in this encounter Discharge Instructions * Patient Instructions* Netfali Menon PA - 02/24/2024 8:52 AM EDT [...] Hayder Graham and/or the Cardiac Surgery Physician Production Service Manager Team may be reached at . [...] Dr. Hayder Graham. You may use a [place] Track or treadmill but avoid any pulling [...] while being managed by your PCP and/or Frame Repairer. For future medication refills, please refer to your PCP and/or Frame Repairer after your discharge from our service. Thank you REMOVE CHEST TUBE SUTURES ON OR AFTER 03/02/24 Home oxygen therapy: N/A Follow up appointments: You should follow up with your PCP, Aparna Jordan APRN, in 1-2 weeks. Our office will schedule an appointment with your Frame Repairer, Neftali Ernandez MD , in 2 weeks. You have an appointment with your Cardiac Surgeon, Dr. Hayder Graham, 4 weeks with a chest x-ray, EKG, and Echo before your appointment. Cardiac Rehabilitation: Karlos Garcia was seen regarding participation in the outpatient Phase 2Cardiac Rehabilitation at [facility]. The patient agrees to a [...] 0600 and on the weekends please page [phone]. * Eric Barahona PA - 02/23/2024 9:27 [...] on the weekends please page [phone]. * Tiffanie Owens, GREEN FEED ATTENDANT - 02/22/2024 2:48 PM EDT Physical Therapy [...] for 10 days. 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 * Kelley Hinson GREEN FEED ATTENDANT - 02/21/2024 10:15 AM EDT Physical [...] for 10 days. 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 * Kelley Hinson PTA - 02/20/2024 3:32 [...] at that time Kelley Hinson PTA Pager: [phone] Physical Therapy Inpatient Rehab Department * Louisa [...] 0600 and on the weekends please page [phone]. * Maris Benavides, PT - 02/19/2024 11:22 [...] for 10 days. 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 Precautions/Special Considerations: [...] outlined inthis evaluation. MARIS BENAVIDES, PT Pager: [phone] Physical Therapy Inpatient Rehabilitation Department Time IN / OUT: 7306-8703 Total Time: 38 (eval) minutes; * Antonio [...] 0600 and on the weekends please page [phone]. * Minnie Begum PA - 02/18/2024 8:25 [...] 0600 and on the weekends please page [phone]. * Kim Ha RCP - 02/17/2024 2:25 [...] plan since last visit. Hayder Graham MD [phone] Source Note - Hayder Graham MD - [...] given written informed consent. Hayder Graham MD [phone] * Hayder Graham MD - 02/17/2024 7:00 [...] given written informed consent. Hayder Graham MD [phone] documented in this encounter Miscellaneous Notes * [...] information for follow-up Home Health & Hospice, [address] [place] [address] Cardiac Rehab, [address] [place] [address] Transportation: family or friend will provide Functional status prior to admission: Independent Home Environment: Others in the home: alone. Current Living Arrangements: home/apartment/condo. Accessibility Concerns:a few steps to enter 1 floor home. Current Functional Ability: Assistive Person and Equipment DME used at home: none DME Needed at Discharge: N/A Patient is insured through: Primary Insurance: [place] [email or web address] Payor: [facility] / Plan: [facility] [...] pain managed with scheduled Tylenol. Worked with [employer]. Ambulated in the roque multiple times during [...] anticipated Patient is insured through: Primary Insurance: [facility] Payor: [facility] / Plan: [facility] [...] Services: Physical Therapy, Registered Nurse Agency Referrals: [facility] [address] [place] [address] Transportation: family or friend will provide Barriers to discharge: Discharge planning Plan going forward: Service Care Management will continue to follow and assist with discharge planning and coordination of care as indicated. Anticipated Date of Discharge: 02/22/2024 Rhett Bell RN RN/CM - Cellphone: [phone] Pager: [phone] Covering Service RN/CM * Plan of Care [...] the outpatient Phase 2 Cardiac Rehabilitation at [facility]. 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 (Only good for 180 days) Any patient receiving care in [place] must abide by [place] law. The hierarchy [...] (i) The agent with financial power of surgical scrub technologist or a conservator appointed in accordance with [...] steady place to sleep or slept in universal health services (including now)?: No In the past 12 months has the [employer], gas, oil, or water [employer] threatened to shut off services in [...] confirmed as: [address] [facility] [address] Physical address: [address] [facility], [address] Social & Family Supports: All names listed [...] Information: none noted Health/Prescription Coverage: Primary Insurance: [facility] Payor: [facility] / Plan: [facility] PPO / Product Type: *No Product type* / Secondary Insurance: N/A ; Prescription Coverage: Yes Preferred Pharmacy: [id number] [address] [place] Status: Patient is a : No Primary Care Provider confirmed: Aparna Jordan, MAURI [phone] Patient/Caregiver Goals of Treatment: dc to home Potential Needs for Transition of Care: home health care Agency Referrals: I have met with the patient to: discuss discharge planning needs. provide the [facility] [place], Office of Care Management letter from the [employer] pertaining to rehab referrals. provide a letter describing our affiliations within the [facility] and educate about their right to choose where referrals are sent. provide a list of Home Health Agencies / Durable Medical Equipment vendors which serve their preferred geographic area. provided patient with [facility] Star Quality Rating handout. They have requested referrals to: [facility] [address] [place] [address] Note routed to a Business Analytics Director who will communicate referrals to facilities [...] Reina Greene RN CM, BSN, CMGT-BC Ext [phone] * Plan of Care - Binta Trinidad [...] Operative Note Patient Name: Karlos Garcia : [id number] MR#: [id number] Case Date: 02/17/2024 Surgeon: Surgeon(s) and Role: * Hayder Graham MD - Primary * Neftali Menon PA - Physician Production Service Manager Preoperative diagnosis: CAD Postoperative diagnosis: CAD, [...] mL Drains: Mediastinal and Left pleural Disposition: [facility] Condition: doing well without problems Attestation: Case Date: 02/17/2024 I performed this procedure without the involvement of a resident. HAYDER GRAHAM MD 02/17/2024 * Op Note - Hayder Graham MD - 02/17/2024 8:20 AM EDT [facility] [place] Operative Note Patient Name: Karlos Garcia : [id number] MR#: [id number] Case Date: 02/17/2024 Surgeon: Surgeons and Role: * Hayder Graham MD - Primary * Neftali Menon PA - Physician Production Service Manager Preoperative diagnosis: CAD Postoperative diagnosis: CAD, [...] mL Drains: Mediastinal and Left pleural Disposition: [facility] Procedure Description: The patient [...] PM EST Office Visit Cardiology at [address] [address] Sheila Johnson, MAURI [address] [facility] [place] [address] Scheduled Orders Name Type Priority Associated Diagnoses [...] Aortic Valve Open W Cardiopulmonary Bypass Homogrf/Stent (48262) Yes 02/17/2024 7:28 AM EDT CAD Cabg, Artery-Vein, Two (15477) Yes 02/17/2024 7:28 AM EDT CAD Cabg, Arterial, Single (02465) Yes 02/17/2024 7:28 AM EDT CAD Endoscopy W/Video-Asst Vein [place], Cabg (70366) Yes 02/17/2024 7:28 AM EDT CAD POCT [...] CHEMISTRY ORDERABLE S [facility] [place] [address] * (ABNORMAL) Basic Metabolic Panel (non-fasting) (02/23/2024 [...] MD CHEMISTRY ORDERABLES [facility] [place] [address] * Potassium (02/22/2024 4:30 AM EDT) Potassium [...] CHEMISTRY ORDERABLE S [facility] [place] [address] * (ABNORMAL) Basic Metabolic Panel (non-fasting) (02/21/2024 [...] 31 [facility] Comment:Add-on request. Samwilly le [...] Carpio MD CHEMISTRY ORDERABLES Performing Organization Address City/[facility]/ZIP Co de Phone Number [facility] [place] [address] * Lactate, whole blood, send to lab ([facility] [place]/[facility] [place]) (02/21/2024 9:45 AM EDT) [facility] Lactate WB 2.0 0.5 - 2.2 mmol/L [facility] Blood 02/21/2024 9:45 AM EDT 02/21/2024 9:52 AM EDT Narrative Resulting Agency Comment Spec In Lab Hayder Graham MD CHEMISTRY ORDERABLE S Performing Organization Address [facility] Co de Phone Number [facility] [place] [address] * (ABNORMAL) Hepatic Function Panel (02/21/2024 9:45 AM EDT) [facility] Protein, Total 5.7(L) 6.1 - 8.0 [...] CHEMISTRY ORDERABLE S [facility] [address] * Lipase (02/21/2024 9:45 AM EDT) Lipase 56 0 - 60 unit/L [facility] Blood 02/21/2024 9:45 AM EDT 02/21/2024 9:52 AM EDT Narrative Resulting Agency Comment Spec In Lab Hayder Graham MD CHEMISTRY ORDERABLE S Performing Organization Address City/[facility]/ZIP Co de Phone Number [facility] [place] [address] * Amylase (02/21/2024 9:45 AM EDT) Amylase 69 28 - 100 unit/L [facility] Blood 02/21/2024 9:45 AM EDT 02/21/2024 9:52 AM EDT Narrative Resulting Agency Comment Spec In Lab Hayder Graham MD CHEMISTRY ORDERABLE S Performing Organization Address [facility] Co de Phone Number [facility] [place] [address] * Potassium (02/21/2024 3:08 AM EDT) Potassium [...] MD CHEMISTRY ORDERABLE S Performing Organization Address City/[facility]/ZIP Co de Phone Number [facility] [place] [address] * XR Chest PA & Lateral (Generic) (02/20/2024 10:19 AM EDT) WORKSTATION ID [id number] RAD Anatomical Region Laterality Modality Chest N/A [...] 02/17/2024 FINDINGS: Support devices: Interval removal of [place]umb[place]-Kaila catheter, endotracheal tube and mediastinal chest tubes The cardiac silhouette is stable status post median sternotomy, CABG and aortic valve replacement. There are small pleural effusions. No pneumothorax. Procedure Note Rogerio Cruz MD - 02/20/2024 EXAMINATION: XR CHEST PA AND LATERAL (GENERIC) CLINICAL HISTORY: s/p AVR/CABGx3 TECHNIQUE: PA and lateral views of the chest COMPARISON: 02/17/2024 FINDINGS: Support devices: Interval removal of [place]-Kaila catheter, endotracheal tubeand mediastinal chest tubes The [...] care coordinator that requested your imaging first. Hayder Graham MD IMG DX ORDERABLES * Scan, Peripheral Blood (02/20/2024 4:23 AM EDT) Pathologist [facility] Plat estimate Decreased [facility] RBC Morphology Normal [facility] Blood 02/20/2024 4:23 AM EDT 02/20/2024 4:42 AM EDT Narrative Resulting Agency Comment Spec In Lab Minnie FRENCH HEMATOLOGY CECILIO ALEMAN [facility] [place] [address] * (ABNORMAL) Differential, Automated (02/20/2024 4:23 AM EDT) Pathologist [facility] Neutrophil % 81.7 % [facility] Neutrophil Absolute 10.37(H) 1.70 - 6.10 x10(3)/mc L [facility] Lymph % 7.4 % [facility] Lymphocytes Abs 0.9 0.9 - 3.2 x10(3)/mc L [facility] Monocyte % 9.7 % [facility] Monocyte Abs 1.2(H) 0.3 - 0.9 x10(3)/mc L [facility] Eos % 0.1 % [facility] Eosinophils Abs 0.0 0.0 - 0.4 x10(3)/mc L [facility] Basophil % 0.2 % [facility] [...] Absolute 0.12(H) 0.00 - 0.04 x10(3)/ L [facility] Blood 02/20/2024 4:23 AM EDT 02/20/2024 4:42 AM EDT Narrative Resulting Agency Comment Spec In Lab Minnie FRENCH HEMATOLOGY CECILIO ALEMAN [facility] [address] * (ABNORMAL) Hemogram (02/20/2024 4:23 AM EDT) [...] HEMATOLOGY CECILIO ALEMAN [facility] [place] [address] * (ABNORMAL) Basic Metabolic Panel (non-fasting) (02/20/2024 4:23 AM EDT) Glucose 113 65 - 199 mg/dL [facility] Comment:Diabetes: >=200 mg/d L plus symptoms Blood Urea Nitrogen 20 10 - 20 mg/dL [facility] Comment:result rechecked-SD Creatinine 0.71(L) 0.80 - 1.50 mg/dL [facility] [...] CHEMISTRY ORDERABLE S Performing Organization Address [facility] Co de Phone Number [facility] [place] [address] * Potassium (02/19/2024 3:57 AM EDT) Potassium [...] CHEMISTRY ORDERABLE S Performing Organization Address [facility]/ZIP Co de Phone Number [facility] [place] [address] * POCT Glucose (02/18/2024 8:24 AM EDT) Glucose, POC 157 65 - 199 mg/dL [facility] Comment: Supplemental ranges: <140 mg/dL before meals <180 mg/dL all other times of the day Blood 02/18/2024 8:24 AM EDT 02/18/2024 8:24 AM EDT Hyader Graham MD POINT OF CARE TEST ORDERABLES [facility] [address] * Scan, Peripheral Blood (02/18/2024 1:40 AM EDT) Plat estimate Decreased [facility] RBC Morphology Normal [facility] Blood 02/18/2024 1:40 AM EDT 02/18/2024 1:56 AM EDT Narrative Resulting Agency Comment Spec In Lab Neftali FRNECH HEMATOLOGY ORDER OLE Performing Organization Address City/[facility]/ZIP Co de Phone Number [facility] [place] [address] * (ABNORMAL) Differential, Automated (02/18/2024 1:40 AM EDT) [facility] Neutrophil % 87.1 % [facility] Neutrophil Absolute 15.03(H) 1.70 - 6.10 x10(3)/mc L [facility] Lymph % 3.0 % [facility] Lymphocytes Abs 0.5(L) 0.9 - 3.2 x10(3)/mc L [facility] Monocyte % 9.1 % [facility] Monocyte Abs 1.6(H) 0.3 - 0.9 x10(3)/mc L [facility] Eos % 0.0 % [facility] Eosinophils Abs 0.0 0.0 - 0.4 x10(3)/mc L [facility] Basophil % 0.2 % [facility] [...] HEMATOLOGY ORDER OLE [facility] [address] * (ABNORMAL) Hemogram (02/18/2024 1:40 AM EDT) [...] Standard Deviation 39.9 36.0 - 45.0 fL [facility] [...] HEMATOLOGY ORDER OLE [facility] [address] * (ABNORMAL) Basic Metabolic Panel (non-fasting) (02/18/2024 [...] CHEMISTRY ORDERABLE S [facility] [address] * (ABNORMAL) Troponin (02/18/2024 1:40 AM EDT) [...] can be found in the [facility] Test Catalog Troponin - [facility] Test Catalog Reference: Fourth [place] Definition of Myocardial Infarction. Journal of the [place] College of Cardiology 2018;72:7953-0632 Blood 02/18/2024 1:40 AM EDT 02/18/2024 1:56 AM EDT Narrative Resulting Agency Comment Spec In Lab Hayder Graham MD CHEMISTRY ORDERABLE S Performing Organization Address [facility] Co de Phone Number [facility] [place] [address] * POCT Glucose (02/17/2024 8:13 PM EDT) Glucose, POC 142 65 - 199 mg/dL [facility] Comment: Supplemental ranges: <140 mg/dL before meals <180 mg/dL all other times of the day Blood 02/17/2024 8:13 PM EDT 02/17/2024 8:13 PM EDT Hayder Graham MD POINT OF CARE TEST ORDERABLES Performing Organization Address [facility] Co de Phone Number [facility] [place] [address] * POCT Glucose (02/17/2024 5:42 PM EDT) Glucose, POC 160 65 - 199 mg/dL [facility] Comment: Supplemental ranges: <140 mg/dL before meals <180 mg/dL all other times of the day Blood 02/17/2024 5:42 PM EDT 02/17/2024 5:42 PM EDT Hayder Graham MD POINT OF CARE TEST ORDERABLES Performing Organization Address [facility]/ZIP Co de Phone Number [facility] [place] [id number] * Hemoglobin (02/17/2024 5:42 PM EDT) Hemoglobin 13.7 13.7 - 16.5 g/dL [facility] Blood 02/17/2024 5:42 PM EDT 02/17/2024 6:10 PM EDT Narrative Resulting Agency Comment Spec In Lab Hayder Graham MD HEMATOLOGY ORDERABL ES Performing Organization Address [facility] Co de Phone Number [facility] [place] [place] [address] * Potassium (02/17/2024 5:42 PM EDT) Potassium [...] CHEMISTRY ORDERABLE S Performing Organization Address [facility] Co de Phone Number [facility] [place] [place] [address] * (ABNORMAL) BLOOD GAS 2 ARTERIAL (02/17/2024 [...] [facility] Co de Phone Number [facility] [place] [place] [address] * XR Chest One View (02/17/2024 1:44 PM EDT) [employer] WORKSTATION ID [id number] RAD Anatomical Region Laterality Modality Chest N/A Digital Radiogra phy Impressions 02/17/2024 2:12 PM EDT 1. ??No definite pleural fluid collection or pneumothorax. 2. ??Right IJ Trumbull-Kaila catheter tip terminates in a descending branch [...] by: Denzel Hankins MD, [facility] ??([phone]), at 02/17/2024 2:12 PM Narrative 02/17/2024 2:12 PM EDT EXAMINATION: XR CHEST ONE VIEW CLINICAL HISTORY: s/p avr/cabg eval effusions TECHNIQUE: 1 view of the chest COMPARISON: Chest x-ray 01/09/2024, chest CT 02/03/2024 FINDINGS: ET tube tip terminates 5.2 cm above the carlos. Right IJ Trumbull-Kaila catheter tip terminates in a descending branch [...] 5.2 cm above the carlos. Right IJ Trumbull-Ganzcatheter tip terminates in a descending branch of [...] fluid collection or pneumothorax. 2. Right IJ Trumbull-Kaila catheter tip terminates in a descending branch [...] care coordinator that requested your imaging first. Hayder Graham [...] CARE TEST ORDERABLES [facility] [place] [address] * (ABNORMAL) Coox2 (02/17/2024 1:21 PM EDT) [...] CARE TEST ORDERABLES [facility] [place] [address] * (ABNORMAL) BLOOD GAS 2 ARTERIAL (02/17/2024 [...] CARE TEST ORDERABLES Performing Organization Address [facility] Co de Phone Number [facility] [place] [address] * (ABNORMAL) Fibrinogen (02/17/2024 12:10 PM EDT) [...] HEMATOLOGY ORDERABLE S Performing Organization Address [facility] Co de Phone Number [facility] [place] [address] * (ABNORMAL) Thrombin time (02/17/2024 12:10 PM [...] HEMATOLOGY ORDERABLE S Performing Organization Address [facility] Co de Phone Number [facility] [place] [address] * APTT (02/17/2024 12:10 PM EDT) Partial [...] HEMATOLOGY ORDERABLE S Performing Organization Address [facility]/ZIP Co de Phone Number [facility] [place] [place] [address] * (ABNORMAL) Prothrombin Time (02/17/2024 12:10 PM [...] HEMATOLOGY ORDERABLE S [facility] [place] [place] [address] * (ABNORMAL) Hemogram (02/17/2024 12:10 PM EDT) [...] HEMATOLOGY ORDERABLE S [facility] [place] [address] * (ABNORMAL) BLOOD GAS 2 ARTERIAL (02/17/2024 [...] [facility] Comment: Noted by chemist instrumentation. Please [...] CARE TEST ORDERABLES [facility] [place] [address] * (ABNORMAL) BLOOD GAS 2 ARTERIAL (02/17/2024 [...] [facility] Comment: Noted by chemist instrumentation. Please [...] CARE TEST ORDERABLES Performing Organization Address [facility]/ZIP Co de Phone Number [facility] [place] [address] * (ABNORMAL) Hemoglobin and Hematocrit, blood (02/17/2024 [...] MD HEMATOLOGY ORDERABL ES Performing Organization Address City/[facility]/ZIP Co de Phone Number [facility] [place] [address] * (ABNORMAL) Platelet count (02/17/2024 11:04 AM EDT) Platelet 106(L) 145 - 357 x10(3)/mc L [facility] Immature Plt % 1.6 0.0 - 7.4 % [facility] Comment: Limitation of the Immature Platelet Fraction (IPF)-May be less reliable when the platelet count is less than 37m006/uL due to statistical imprecision. The IPF value [...] in a decreased state of production. References: [employer] The Clinical Value of the Immature Platelet Fraction (IPF) in Cell Recovery Document Number 10-1143 03/2011 [employer] The Role of the Immature Platelet Fraction (IPF) in the Differential Diagnosis of Thrombocytopenia, Document MKT-[id number] V002/15/14 P002/17 Blood 02/17/2024 11:0 4 AM EDT 02/17/2024 11:12 AM EDT Narrative Resulting Agency Comment Spec In Lab Hayder Graham MD HEMATOLOGY ORDERABL ES Performing Organization Address City/State/[facility] Co de Phone Number [facility] [place] [address] * (ABNORMAL) Fibrinogen (02/17/2024 11:04 AM EDT) [...] HEMATOLOGY ORDERABL ES [facility] [place] [address] * (ABNORMAL) BLOOD GAS 2 ARTERIAL (02/17/2024 [...] CARE TEST ORDERABLES [facility] [place] [address] * (ABNORMAL) BLOOD GAS 2 ARTERIAL (02/17/2024 [...] [facility] Co de Phone Number [facility] [place] [place] [address] * Surgical Pathology Report (02/17/2024 10:01 AM EDT) Final Diagnosis [id number] ? Location: [facility]; [facility]; The signing pathologist has (i) examined the relevant preparation(s) for the specimen(s) and (ii) rendered or confirmed the diagnosis(es). . ?Surgical Pathology DIAGNOSIS Aortic valve leaflets, excision: Valve leaflets with myxoid degeneration, nodular fibrosis and dystrophic calcifications. Electronically signed by: ?Lindsay FERNANDEZ, Livier Gonzalez Verified: ??02/24/2024 13:49 ??Pathologist Performed at: ??-[facility] – [place] Dept. of Pathology, [place] [address] Ice Cream Server: Job Brewer MD, FCAP, ??CLIA Certificate: [id number] SPECIMEN(S) SUBMITTED A - Aortic Valve Leaflets, [...] Sections Processing Blocks submitted for decalcification: A1. Sandal Parts Assembler sections in 1 cassette labeled A1. ??ajw 02/24/2024 1:49 PM EDT [facility] AORTIC STRUCTURE / Unknown 02/17/2024 10:01 AM EDT 02/17/2024 10:01 AM EDT Hayder Graham MD PATHOLOGY/CYTOLOGY ORDERABLES Performing Organization Address City/[facility]/ZIP Co de Phone Number [facility] [place] [place] [address] * Specimen to Pathology (02/17/2024 10:01 AM EDT) AP Specimen 02/17/2024 10:0 1 AM EDT 02/17/2024 10:01 AM EDT Narrative [facility] - 02/17/2024 10:01 AM EDT Specimen requisition ordered. ??Separate Pathology report to follow Hayder Graham MD PATHOLOGY/CYTOLOGY ORDERABLES Performing Organization Address City/[facility]/ZIP Co de Phone Number [facility] [place] [place] [address] * (ABNORMAL) BLOOD GAS 2 ARTERIAL (02/17/2024 [...] CARE TEST ORDERABLES [facility] [place] [address] * (ABNORMAL) BLOOD GAS 2 VENOUS (02/17/2024 9:34 AM EDT) pH, Venous 7.22(Criti marquez) 7.32 - 7.42 [facility] Comment:Noted by chemist instrumentation. PCO2, Venous 43 41 - 51 mmHg [facility] Comment:Noted by chemist instrumentation. PO2, Venous 57(H) 25 - 40 mmHg [facility] Comment:Noted by chemist instrumentation. Bicarbonate, Venous 17.1 mmol/L [facility] Comment:Noted by chemist instrumentation. Base Excess, Venous -10.6 mmol/L [facility] Comment:Noted by chemist instrumentation. Hgb Blood Gas 11.2(L) 13.7 - 16.5 g/dL [facility] Comment:Noted by chemist instrumentation. Oxyhemoglobin, Venous 86.5 % [facility] Comment:Noted by chemist instrumentation. Carboxyhemoglob in, Venous 0.3 % [facility] Comment: Noted by chemist instrumentation. Nonsmokers: 0.5-1.5% COHB Smokers: Variable, but usually less than 10% Toxic: 20-30% COHB Lethal: Greater than 60% COHB Methemoglobin, Venous 0.0 <=1.5 % [facility] Comment:Noted by chemist instrumentation. Na Whole Blood 156(H) 135 - 145 mmol/L [facility] Comment:Noted by chemist instrumentation. K Whole Blood 5.5(H) 3.5 - 5.0 mmol/L [facility] Comment: Noted by chemist instrumentation. Please note: Patients with WBC >100,000 may have falsely elevated Potassium levels. Contact the Clinical Chemistry Laboratory if there are any questions. ICa Whole Blood 1.03(L) 1.15 - 1.33 mmol/L [facility] Comment: Noted by chemist instrumentation. Note: ??Total bilirubin higher than 20 mg/dL may lead to falsely low ionized calcium. CL Whole Blood 100 98 - 107 mmol/L [facility] Comment:Noted by chemist instrumentation. Gluc Whole Bld 132 65 - 199 mg/dL [facility] Comment: Noted by chemist instrumentation. Diabetes: >=200 mg/dL plus symptoms Lactate WB 1.0 0.5 - 2.2 mmol/L [facility] Comment:Noted by chemist instrumentation. Blood Gas Source Venous [facility] Blood 02/17/2024 9:34 AM EDT 02/17/2024 9:34 AM EDT Hayder Graham MD POINT OF CARE TEST ORDERABLES [facility] [place] [address] * (ABNORMAL) BLOOD GAS 2 ARTERIAL (02/17/2024 [...] CARE TEST ORDERABLES Performing Organization Address [facility] Co de Phone Number [facility] [place] [address] * POCT Glucose (02/17/2024 6:38 AM EDT) Glucose, POC 98 65 - 199 mg/dL [facility] Comment: Supplemental ranges: <140 mg/dL before meals <180 mg/dL all other times of the day Blood 02/17/2024 6:38 AM EDT 02/17/2024 6:38 AM EDT Hayder Graham MD POINT OF CARE TEST ORDERABLES Performing Organization Address [facility] Co de Phone Number [facility] [place] [place] [address] * Transesophageal Echo/OR (02/17/2024 6:33 AM EDT) [...] Routine documented in this encounter Care Teams Furnace Maintenance Relationship Specialty Start Date End Date Aparna Jordan APRN PCP - General Family Medicine 10/21/23 05/26/24 documented as of this encounter
--- OUTSIDE RECORDS SUMMARY | 2024-11-10 10:22 | XMS_ITS | Encounter Summary ---
Author Organization [facility] Address [facility] [place] [address] Care Team Providers Care Lvn Name Role Phone Vanessa Christian MAURI Primary Care Provider Encounter Details Date Type Department Care Team (Late st Contact Info) Description 02/14/2024 Orders [place] [id number] Zak Farmer MD [facility] CARDIOTHORACIC [place] [address] Coronary artery disease, unspecified vessel or lesion type, unspecified whether angina present, unspecified whether hughes or transplanted heart (Primary Dx) Social History [...] PM EST Office Visit Cardiology at [address] [place] [address] Sheila Johnson A, ESCALATOR OPERATOR [address] [place]IOLOGY [place], [place] [id number] documented as of this encounter Results * EKG 12 Lead (03/12/2024 2:35 PM EDT) Ventricular rate 59 BPM MUSE SYSTEM Atrial Rate 59 BPM MUSE SYSTEM P-R Interval 190 ms MUSE SYSTEM QRS Duration 92 ms MUSE SYSTEM Q-T Interval 406 ms MUSE SYSTEM QTC Calculated (Bezet) 401 ms MUSE SYSTEM Calculated P [place] -12 degrees MUSE SYSTEM Calculated R [place] 24 degrees MUSE SYSTEM Calculated T [place] 74 degrees MUSE SYSTEM INTERPRETATION Sinus bradycardia T wave abnormality, consider anterior ischemia Abnormal ECG When compared with ECG of 17-FEB-2024 13:24, NC interval has decreased T wave inversion now evident in Anterior leads Confirmed by Paul Guzman ([id number]) on 03/15/2024 8:36:23 AM MUSE SYSTEM 03/12/2024 2:35 PM EDT 03/15/2024 8:36 AM EDT Zak Farmer MD ECG ORDERABLES MUSE SYSTEM * XR Chest PA & Lateral (Generic) (03/12/2024 1:42 PM EDT) WORKSTATION ID [id number] [facility] Anatomical Region Laterality Modality Chest [...] questions please contact the health child care development specialist that requested your imaging first. ? 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 Electronically signed by: Augie Sanchez MD, [facility]([phone]), at 03/13/2024 8:28 AM Zak Farmer MD IMG DX ORDERABLES documented in this encounter Visit Diagnoses Diagnosis Coronary artery disease, unspecified vessel or lesion type, unspecified whether angina present, unspecified whether hughes or transplanted heart- Primary Coronary artery disease, unspecified vessel or lesion type, unspecified whether angina present, unspecified whether hughes or transplanted heart documented in this encounter Care Teams Lvn Relationship Specialty Start Date End Date Vanessa Christian APRN PCP - General Family Medicine 10/21/23 05/26/24 documented as of this encounter
--- OUTSIDE RECORDS SUMMARY | 2024-11-10 10:22 | XMS_ITS | Encounter Summary ---
Author Organization [facility] [place] [address] Care Team Providers Care Hosiery Knitter Name Role Phone Vanessa Christian APRN Primary Care Provider [phone] Encounter Details Date Type Department Care Team [...] Office Visit Cardiology at [address] [address] Sheila Johnson APRN [address] [facility] [place] [address] documented as of this encounter Visit Diagnoses Not on filedocumented in this encounter Care Teams Hosiery Knitter Relationship Specialty Start Date End Date Vanessa Christian APRN PCP - General Family Medicine 10/21/23 05/26/24 documented as of this encounter
--- OUTSIDE RECORDS SUMMARY | 2024-11-10 10:22 | XMS_ITS | Encounter Summary ---
[place] [address] Care Team Providers Care Turn Out Name Role Phone Vanessa Christian MAURI Primary Care Provider [phone] Reason for Visit * Auth/Cert (Routine) Specialty [...] Dickinson MD [facility] [place] [address] [facility] Referral ID Status Reason Start Date Expiration Date Visits Re quested Visits Authorized [id number] 1 1 Encounter Details Date Type Department Care Team (Late st Contact Info) Description 02/03/2024 10:00 AM EDT - 02/03/2024 11:00 AM EDT [place] [address] Saira Lua MD CARDIAC CATHETERIZATION Social History [...] lbs Follow-up Visits Follow up with your churner in 2-4 weeks Access Site 'Black and Blue' and tenderness is expected during the first week Call if you noted a mass (lump) greater than the size of a ellis Call Office with any Questions and if you have any of the following Clarence Lane M.D Interventional Pedigree Researcher Supervisor Telephone Answering Service #: [phone] * Attachments The following attachments cannot be sent through Care Everywhere. * CAD (Coronary Artery Disease): General Info (Mauritanian) * Coronary Angiogram: Post-op (Mauritanian) documented in this encounter Medications at Time [...] Pre-Procedure H&P Update: Cardiac Catheterization Karlos Anthony [id number] Chief Complaint: Aortic stenosis HPI: Mr. [...] is inthe chart Clarence Lane MD Interventional Pedigree Researcher 02/03/24 11:48 AM documented in this encounter Miscellaneous Notes * Brief Op Note - Clarence Lane MD - 02/03/2024 12:51 PM EDT Preliminary Cardiac Catheterization Procedure Note: Patient Name: Karlos Anthony : [id number] MR#: [id number] Case Date: 02/03/2024 Supervisor Telephone Answering Service: Surgeon(s) and Role: * Saira Lua MD [...] 3:00 PM EST Office Visit Cardiology at [place] [address] [place] [phone] Sheila Johnson, MAURI [address] [facility] [place] [address] Scheduled Orders Name Type Priority Associated Diagnoses [...] Modality Other Narrative 02/12/2024 3:47 PM EDT ?[facility] ? Cardiac Catheterization/Intervention Report ? Patient Name: Patenaude, Karlos ? Procedure Date: 02/03/2024 ? A #: [id number] ? Primary Physician: Saira Lua ? Case #: [id number] ? File Name: [id number] ? Catheterization Order Number: [id number] ? [facility] ? Final Report [place], [place] ? Patient Name: ? Karlos Patenaude ? ID#: ?[id number] ? : ?1960 ? Procedure Date: ? [...] Procedure Note Saira Lua MD - 02/12/2024 [facility] Cardiac Catheterization/Intervention Report Patient Name: Karlos Anthony Procedure Date: 02/03/2024 A #: [id number] Primary Physician: Saira Lua Case #: [id number] File Name: [id number] Catheterization Order Number: [id number] [facility] [place] Patient Name: Karlos Anthony ID#:[id number] :1960 Procedure Date: February 03, 2024 Case #: [id number] Room: 5 Case Physician: Saira Lua M.D. Start: 12:29 Fellow: Clarnece Lane M.D. Admission:02/03/2024 Referring Physician: Zak Farmer M.D. Procedures: * Coronary Angiography History Karlos Anthony is a 63 year old man. He has hypertension. Thepatient's smoking status is Never. He also has hypercholesterolemia managedwith lipid therapy. Prior to the initiation of this procedure, thepatient was designated as ASA Class III. The [facility] clinical frailty scale is 3: [...] (Bezet) 372 ms MUSE SYSTEM Calculated P [place] 59 degrees MUSE SYSTEM Calculated R [place] 34 degrees MUSE SYSTEM Calculated T [place] 63 degrees MUSE SYSTEM INTERPRETATION Sinus bradycardia [...] MD) documented in this encounter Care Teams Turn Out Relationship Specialty Start Date End Date Vanessa Christian, MAURI PCP - General Family Medicine 10/21/23 05/26/24 documented as of this encounter
--- OUTSIDE RECORDS SUMMARY | 2024-11-10 10:22 | XMS_ITS | Encounter Summary ---
[place] [address] Care Team Providers Care Collection Systems Foreman Name Role Phone Aparna Jordan MAURI Primary Care Provider [phone] Reason for Referral * Diagnostic Test (Routine) - New Request Specialty Diagnoses / Procedures Referred By Contac t Referred To Contact Cardiology Diagnoses S/P AVR Procedures Echocardiogram Transthoracic Neftali Menon PA [facility] [place] [address] [facility] [place] [address] Referral ID Status Reason Start Date Expiration Date Visits Requested Visits Authorized [id number] New Request Specialty Service Requested 02/24/2024 02/23/2025 1 1 * Consultation (Routine) - Closed Specialty Diagnoses / Procedures Referred By Contac t Referred To Contact Cardiology Diagnoses S/P AVR Hayder Graham MD [facility] [place] [address] Cardiac Rehab, [facility] [address] [place] [address] [place] [address] Referral ID Status Reason Start Date Expiration Date V isits Requested Visits Authorized [id number] Closed Consult, Test & Treat 02/24/2024 08/22/2024 36 36 * Home Health Care (Routine) - Closed Specialty Diagnoses / Procedures Referred By Sixto mendoza Referred To Contact Diagnoses S/P AVR Hayder Graham MD [facility] [place] [address] Referral ID Status Reason Start Date Expiration Date V isits Requested Visits Authorized [id number] Closed Consult, Test & Treat 02/24/2024 08/22/2024 [...] [facility] [place] [address] [facility] Referral ID Status Reason Start Date Expiration Date Visits Re quested Visits Authorized [id number] 1 1 Encounter Details Date Type Department Care Team (Latest Contact Info) Description 02/17/2024 5:43 AM EDT - 02/24/2024 11:23 AM EDT Hospital Encounter Heart and Vascular Unit Level 4 [place] [address] Hayder Graham MD [facility] [place] [address] S/P AVR (Primary Dx); Aortic valve stenosis, [...] Patient Age: 63 y.o. Birthdate: 1960 Language: Estonian Race: White Ethnicity: Not nor Admit Date: 02/17/2024 Discharge Date: 02/24/24 Attending Physician: Hayder Graham MD Follow-up Recommendations for Providers: Please continue routine management of cardiovascular risk factors including blood pressure, lipids,glucose, etc. Please note any changes to medications. Patient to follow up with PCP, Aparna Jordan APRN, in 1-2 weeks. Patient to follow up with Roof Tile Layer, Neftali Ernandez MD , in 2 weeks. Patient to follow up with Cardiac Surgeon, Dr. Hayder Graham, with a chest x-ray, EKG, and Echo. Inpatient Provider Contact Information: [facility] Section of Cardiac Surgery [facility] [place] [address] FAX [phone] Discharge Diagnoses (Hospital Problems) Primary Diagnoses: /CAD [...] insufficiency. He has glaucoma. He used to [employer] until about 15 years ago. He has undergone prior herniorrhaphy. 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 Major Procedures/Operations: 02/17/24 s/p avr/cabgx3 CABG x 3 JOSE->LAD SVG->dRCA SVG->OM1 EVH from LLE AVR with a 23 mm Inspiris Bioprosthesis Hospital Course: Karlos Garcia was admitted to [facility] on 02/17/2024 via the Same Day [...] Hayder Graham and/or the Cardiac Surgery Physician Imcu Specialist Team may be reached at . [...] Please refer to the card with the [place] Heart Association Guidelines for more information. You [...] Dr. Hayder Graham. You may use a [place] Track or treadmill but avoid any pulling [...] friends, go to a movie, go to caodaism, etc. Heavy activities: No hunting, skiing, jogging, [...] should resume a low fat, low cholesterol, [place] Heart Association Diet. Driving: No driving until [...] while being managed by your PCP and/or Roof Tile Layer. For future medication refills, please refer to your PCP and/or Roof Tile Layer after your discharge from our service. Thank you REMOVE CHEST TUBE SUTURES ON OR AFTER 03/02/24 Home oxygen therapy: N/A Follow up appointments: You should follow up with your PCP, Aparna Jordan APRN, in 1-2 weeks. Our office will schedule an appointment with your Roof Tile Layer, Neftali Ernandez MD , in 2 weeks. You have an appointment with your Cardiac Surgeon, Dr. Hayder Graham, 4 weeks with a chest x-ray, EKG, and Echo before your appointment. Cardiac Rehabilitation: Karlos Garcia was seen regarding participation in the outpatient Phase 2Cardiac Rehabilitation at [facility]. The patient agrees to a referral to this program. The referral will be sent at discharge and the patient should be contacted by the Program within 1- 2 weeks from discharge. Future Appointments and Orders Future Orders Complete By Expires Echocardiogram Transthoracic [73226 CPT(R)] 03/26/2024 09/25/2024 Process Instructions: Scheduling Instructions: Questions: Where will study be performed?: [facility] Clinics Does the patient have Congenital Heart Disease?: Does patient require sedation?: Sedation rationale: XR Chest PA & Lateral (Generic) [35470 13816 Custom] 03/26/2024 09/25/2024 Process Instructions: Scheduling Instructions: Questions: Portable exam?: Reason for exam and clinical history: s/p avr/cabg Clinical information / jerome questions for radiologist: Stat read required?: Date of injury if applicable: Requested Time: Where will study be performed?: [facility] Radiology Referral to Cardiac Rehab [ZWT365 Custom] As directed Process Instructions: If no progress note charted, please enter Clinical details in comments. Scheduling Instructions: Questions: My question or request is: s/p AVR/CABG. Cardiac rehab at [facility]. Referral to Home Health [REF34 Custom] As directed Process Instructions: If no progress note charted, please enter Clinical details in comments. Scheduling Instructions: Comments: Please evaluate Karlos Garcia for admission to Home Health. [address] Phone Number: Date of : 1960 Inpatient DOCUMENTATION FOR VNA SERVICES (INCLUDING THOSE PATIENTS WITH MEDICARE COVERAGE REQUIRING HOME VNA SERVICES AND/OR HOSPICE SERVICES) PATIENT'S LOCATION: Karlos Garcia [address] [place] [phone] Gas Charger's Name: self/family In discussion with the attending physician, it is certified that this patient is under their care and that they, or a Nurse Practitioner, or Physician Imcu Specialist who is working directly with them, [...] for services as follows: HOME HEALTH AGENCY: [facility]. [address] [place] [address] RN orders: Cardiopulmonary assessment, incisional assessment, assess [...] issues please call the Cardiology Office at [phone] FOR MEDICARE ONLY: (please delete this section [...] [facility] Section of Cardiac Surgery [facility] [address] FAX [phone] Date: 02/24/2024 CC: Aparna Jordan, MAURI Jordan, Aparna Sherman APRN [address] [place] [address] documented in this encounter Discharge Instructions * [...] Hayder Graham and/or the Cardiac Surgery Physician Imcu Specialist Team may be reached at . [...] Please refer to the card with the [place] Heart Association Guidelines for more information. You [...] Dr. Hayder Graham. You may use a [place] Track or treadmill but avoid any pulling [...] friends, go to a movie, go to caodaism, etc. Heavy activities: No hunting, skiing, jogging, [...] should resume a low fat, low cholesterol, [place] Heart Association Diet. Driving: No driving until [...] while being managed by your PCP and/or Roof Tile Layer. For future medication refills, please refer to your PCP and/or Roof Tile Layer after your discharge from our service. Thank you REMOVE CHEST TUBE SUTURES ON OR AFTER 03/02/24 Home oxygen therapy: N/A Follow up appointments: You should follow up with your PCP, Aparna Jordan APRN, in 1-2 weeks. Our office will schedule an appointment with your Roof Tile Layer, Neftali Ernandez MD , in 2 weeks. You have an appointment with your Cardiac Surgeon, Dr. Hayder Graham, 4 weeks with a chest x-ray, EKG, and Echo before your appointment. Cardiac Rehabilitation: Karlos Garcia was seen regarding participation in the outpatient Phase 2Cardiac Rehabilitation at [facility]. The patient agrees to a referral [...] 0600 and on the weekends please page [phone]. * Eric Barahona PA - 02/23/2024 9:27 [...] 0600 and on the weekends please page [phone]. * Tiffanie Owens PTA - 02/22/2024 2:48 [...] for 10 days. 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 * Kelley Hinson, SENIOR SOFTWARE TEST ENGINEER - 02/21/2024 10:15 AM EDT Physical [...] for 10 days. 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 * Kelley Hinson PTA - 02/20/2024 3:32 PM EDT 02/20/24 3404 Evaluation & Treatment Document Type contact Total Minutes, Physical Therapy 0 Comment, Session Not Performed Checked in w/ pt this PM for ongoing PT services, pt politely declined, stating he had been dealing w/ nausea all day, made plan to see him tomorrow morning, will f/u at that time Kelley Hinson PTA Pager: [phone] Physical Therapy Inpatient Rehab Department * Louisa [...] 0600 and on the weekends please page [phone]. * Maris Benavides, PT - 02/19/2024 11:22 [...] for 10 days. 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 Precautions/Special Considerations: [...] outlined inthis evaluation. MARIS BENAVIDES, PT Pager: [phone] Physical Therapy Inpatient Rehabilitation Department Time IN / OUT: 6386-4315 Total Time: 38 (eval) minutes; * Antonio [...] 0600 and on the weekends please page [phone]. * Minnie Begum PA - 02/18/2024 8:25 [...] 0600 and on the weekends please page [phone]. * Kmi Ha RCP - 02/17/2024 2:25 PM EDT [...] plan since last visit. Hayder Graham MD [phone] Source Note - Hayder Graham MD - [...] insufficiency. He has glaucoma. He used to [employer] until about 15 years ago. He has [...] given written informed consent. Hayder Graham MD [phone] * Hayder Graham MD - 02/17/2024 7:00 [...] given written informed consent. Hayder Graham MD [phone] documented in this encounter Miscellaneous Notes * [...] information for follow-up Home Health & Hospice, [address] [place] [address] Cardiac Rehab, [facility] [address] [place] [address] Transportation: family or friend will provide Functional status prior to admission: Independent Home Environment: Others in the home: alone. Current Living Arrangements: home/apartment/condo. Accessibility Concerns:a few steps to enter 1 floor home. Current Functional Ability: Assistive Person and Equipment DME used at home: none DME Needed at Discharge: N/A Patient is insured through: Primary Insurance: [facility] [employer] Payor: [facility] / Plan: [facility] PPO / Product Type: *No [...] pain managed with scheduled Tylenol. Worked with [facility]. Ambulated in the roque multiple times during [...] anticipated Patient is insured through: Primary Insurance: [employer] [employer] Payor: [facility] / Plan: [facility] PPO / Product Type: *No Product type* / Secondary Insurance: N/A Last Physical Therapy Recommendation: home with home health (Str coming to stay for a week or two upon d/c) with to be determined (owns rolling walker, shower seat) Plan for discharge is: Home w/ Services Outpatient Agency/Support Group Needs: Homecare agency Home Health Services: Physical Therapy, Registered Nurse Agency Referrals: [facility] [address] [address] Transportation: family or friend will provide Barriers to discharge: Discharge planning Plan going forward: Service Care Management will continue to follow and assist with discharge planning and coordination of care as indicated. Anticipated Date of Discharge: 02/22/2024 Rhett Bell RN RN/CM - Cellphone: [phone] Pager: [phone] Covering Service RN/CM * Plan of Care [...] Yang RN - 02/19/2024 10:44 AM EDT [facility] CARDIAC REHABILITATION Karlos Garcia was seen today regarding participation in the outpatient Phase 2 Cardiac Rehabilitation at [facility]. The patient agrees to a referral [...] receiving care in [place] must abide by [place] law. The hierarchy [...] In the past 12 months has the [employer], gas, oil, or water [employer] threatened to shut off services in your [...] as: [address] [facility] [address] Physical address: [address] [facility], [address] Social & Family Supports: All names listed [...] none noted Health/Prescription Coverage: Primary Insurance: [facility] Payor: [facility] / Plan: [facility] PPO / Product Type: *No Product type* / Secondary Insurance: N/A ; Prescription Coverage: Yes Preferred Pharmacy: [id number] AT [facility] & [address] [address] [place] Status: Patient is a : No Primary Care Provider confirmed: Aparna Jordan, [employer] [phone] Patient/Caregiver Goals of Treatment: dc to home Potential Needs for Transition of Care: home health care Agency Referrals: I have met with the patient to: discuss discharge planning needs. provide the [facility], Office of Care Management letter from the Academic Specialist pertaining to rehab referrals. provide a letter describing our affiliations within the [facility] and educate about their right to choose where referrals are sent. provide a list of Home Health Agencies / Durable Medical Equipment vendors which serve their preferred geographic area. provided patient with [facility] Star Quality Rating handout. They have requested referrals to: [facility]. [address] [place] [address] Note routed to a Health And Wellness Coordinator who will communicate referrals to facilities [...] Reina Greene RN CM, BSN, CMGT- Ext [phone] * Plan of Care - Binta Trinidad [...] Operative Note Patient Name: Karlos Garcia DOB: [id number] MR#: [id number] Case Date: 02/17/2024 Surgeon: Surgeon(s) and Role: * Hayder Graham MD - Primary * Neftali Menon PA - Physician Imcu Specialist Preoperative diagnosis: CAD Postoperative diagnosis: CAD, [...] Graham MD - 02/17/2024 8:20 AM EDT [facility] Operative Note Patient Name: Karlos Garcia : [id number] MR#: [id number] Case Date: 02/17/2024 Surgeon: Surgeons and Role: * Hayder Graham MD - Primary * Neftali Menon PA - Physician Imcu Specialist Preoperative diagnosis: CAD Postoperative diagnosis: CAD, [...] Mediastinal and Left pleural Disposition: [facility] Procedure Description: The patient was brought to [...] 3:00 PM EST Office Visit Cardiology at [place] [address] [place] [address] Sheila Johnson APRN [address] [facility], [facility] [place] [address] Scheduled Orders Name Type Priority Associated Diagnoses [...] Aortic Valve Open W Cardiopulmonary Bypass Homogrf/Stent (19650) Yes 02/17/2024 7:28 AM EDT CAD Cabg, Artery-Vein, Two (91789) Yes 02/17/2024 7:28 AM EDT CAD Cabg, Arterial, Single (08961) Yes 02/17/2024 7:28 AM EDT CAD Endoscopy W/Video-Asst Vein Gordon, Cabg (96082) Yes 02/17/2024 7:28 AM EDT CAD POCT [...] CHEMISTRY ORDERABLE S [facility] [place] [address] * (ABNORMAL) Basic Metabolic Panel (non-fasting) (02/23/2024 [...] MD CHEMISTRY ORDERABLES [facility] [place] [address] * Potassium (02/22/2024 4:30 AM EDT) Potassium [...] CHEMISTRY ORDERABLE S [facility] [place] [address] * (ABNORMAL) Basic Metabolic Panel (non-fasting) (02/21/2024 [...] Address City/[facility]/ZIP Co de Phone Number [facility] [place] [address] * Lactate, whole blood, send to lab ([facility]) (02/21/2024 9:45 AM EDT) [facility] Lactate WB 2.0 0.5 - 2.2 mmol/L [facility] Blood 02/21/2024 9:45 AM EDT 02/21/2024 9:52 AM EDT Narrative Resulting Agency Comment Spec In Lab Hayder Graham MD CHEMISTRY ORDERABLE S Performing Organization Address City/[facility]/ZIP Co de Phone Number [facility] [place] [address] * (ABNORMAL) Hepatic Function Panel (02/21/2024 9:45 [...] Address City/[facility]/ZIP Co de Phone Number [facility] [place] [address] * Lipase (02/21/2024 9:45 AM EDT) Lipase 56 0 - 60 unit/L [facility] Blood 02/21/2024 9:45 AM EDT 02/21/2024 9:52 AM EDT Narrative Resulting Agency Comment Spec In Lab Hayder Graham MD CHEMISTRY ORDERABLE S Performing Organization Address [facility] Co de Phone Number [facility] [place] [address] * Amylase (02/21/2024 9:45 AM EDT) Amylase 69 28 - 100 unit/L [facility] Blood 02/21/2024 9:45 AM EDT 02/21/2024 9:52 AM EDT Narrative Resulting Agency Comment Spec In Lab Hayder Graham MD CHEMISTRY ORDERABLE S Performing Organization Address [facility] Co de Phone Number [facility] [place] [place] [address] * Potassium (02/21/2024 3:08 AM EDT) Potassium [...] Hayder Graham MD CHEMISTRY ORDERABLE S [facility] [place] [address] * XR Chest PA & Lateral (Generic) (02/20/2024 10:19 AM EDT) WORKSTATION ID [id number] RAD Anatomical Region Laterality Modality Chest N/A [...] signed by: Rogerio Cruz MD, [facility] ??([phone]), at 02/20/2024 1:11 PM Narrative 02/20/2024 1:11 PM EDT EXAMINATION: XR CHEST PA AND LATERAL (GENERIC) CLINICAL HISTORY: s/p AVR/CABGx3 TECHNIQUE: PA and lateral views of the chest COMPARISON: 02/17/2024 FINDINGS: Support devices: Interval removal of Woolrich-Kaila catheter, endotracheal tube and mediastinal chest tubes The cardiac silhouette is stable status post median sternotomy, CABG and aortic valve replacement. There are small pleural effusions. No pneumothorax. Procedure Note Rogerio Cruz MD - 02/20/2024 EXAMINATION: XR CHEST PA AND LATERAL (GENERIC) CLINICAL HISTORY: s/p AVR/CABGx3 TECHNIQUE: PA and lateral views of the chest COMPARISON: 02/17/2024 FINDINGS: Support devices: Interval removal of Woolrich-Kaila catheter, endotracheal tubeand mediastinal chest tubes The [...] care teacher that requested your imaging first. Hayder Graham MD IMG DX ORDERABLES * Scan, Peripheral Blood (02/20/2024 4:23 AM EDT) Pathologist [facility] Plat estimate Decreased [facility] RBC Morphology Normal [facility] Blood 02/20/2024 4:23 AM EDT 02/20/2024 4:42 AM EDT Narrative Resulting Agency Comment Spec In Lab Minnie FRENCH HEMATOLOGY CECILIO ALEMAN [facility] [place] [place] [address] * (ABNORMAL) Differential, Automated (02/20/2024 4:23 AM EDT) [facility] Neutrophil % 81.7 % [facility] Neutrophil Absolute 10.37(H) 1.70 - 6.10 x10(3)/mc L [facility] Lymph % 7.4 % [facility] Lymphocytes Abs 0.9 0.9 - 3.2 x10(3)/mc L [facility] Monocyte % 9.7 % [facility] Monocyte Abs 1.2(H) 0.3 - 0.9 x10(3)/mc L [facility] Eos % 0.1 % [facility] Eosinophils Abs 0.0 0.0 - 0.4 x10(3)/[facility] LABORATORY Basophil % 0.2 % [facility] Baso Absolute 0.0 0.0 - 0.1 x10(3)/[facility] LABORATORY Immature Gran % 0.90 % [facility] Comment: Immature granulocytes(IG's)percentage and absolute count will include metamyelocytes, myelocytes, and promyelocytes. Blood smears from CBCs yielding IG's will be scanned manually for concordance. If this scan disagrees with the automated IG or if promyelocytes are noted, a manual differential will be performed. Immature Gran Absolute 0.12(H) 0.00 - 0.04 x10(3)/[facility] LABORATORY Blood 02/20/2024 4:23 AM EDT 02/20/2024 4:42 AM EDT Narrative Resulting Agency Comment Spec In Lab Minnie FRENCH HEMATOLOGY CECILIO ALEMAN [facility] [place] [place] [address] * (ABNORMAL) Hemogram (02/20/2024 4:23 AM EDT) White Blood Cell 12.7(H) 4.0 - 9.5 x10(3)/[facility] LABORATORY Red Blood Cell [...] HEMATOLOGY CECILIO ALEMAN [facility] [place] [place] [address] * (ABNORMAL) Basic Metabolic Panel (non-fasting) (02/20/2024 [...] CHEMISTRY ORDERABLE S Performing Organization Address [facility]/ZIP Co de Phone Number [facility] [place] [address] * Potassium (02/19/2024 3:57 AM EDT) [facility] Signature Potassium 4.3 3.5 - 5.0 mmol/L [facility] [...] Address City/[facility]/ZIP Co de Phone Number [facility] [place] [address] * POCT Glucose (02/18/2024 8:24 AM EDT) [facility] Glucose, POC 157 65 - 199 mg/dL [facility] Comment: Supplemental ranges: <140 mg/dL before meals <180 mg/dL all other times of the day Blood 02/18/2024 8:24 AM EDT 02/18/2024 8:24 AM EDT Hayder Graham MD POINT OF CARE TEST ORDERABLES Performing Organization Address City/[facility]/ZIP Co de Phone Number [facility] [place] [address] * Scan, Peripheral Blood (02/18/2024 1:40 AM EDT) [facility] Plat estimate Decreased [facility] RBC Morphology Normal [facility] Blood 02/18/2024 1:40 AM EDT 02/18/2024 1:56 AM EDT Narrative Resulting Agency Comment Spec In Lab Neftali FRENCH HEMATOLOGY ORDER OLE Performing Organization Address City/[facility]/ZIP Co de Phone Number [facility] [place] [address] * (ABNORMAL) Differential, Automated (02/18/2024 1:40 AM EDT) [facility] Neutrophil % 87.1 % [facility] Neutrophil Absolute 15.03(H) 1.70 - 6.10 x10(3)/mc L [facility] Lymph % 3.0 % [facility] Lymphocytes Abs 0.5(L) 0.9 - 3.2 x10(3)/mc L [facility] Monocyte % 9.1 % [facility] Monocyte Abs 1.6(H) 0.3 - 0.9 x10(3)/mc L [facility] Eos % 0.0 % NORTH [...] FRENCH HEMATOLOGY ORDER OLE Performing Organization Address City/State/[facility] Co de Phone Number [facility] [place] [address] * (ABNORMAL) Hemogram (02/18/2024 1:40 AM EDT) [...] HEMATOLOGY ORDER OLE [facility] [place] [address] * (ABNORMAL) Basic Metabolic Panel (non-fasting) (02/18/2024 [...] CHEMISTRY ORDERABLE S [facility] [place] [address] * (ABNORMAL) Troponin (02/18/2024 1:40 AM EDT) Pathologist [facility] Troponin-T, High Sensitivity 342(H) <=22 ng/L HOLDEN [...] can be found in the [facility] Test Catalog Troponin - [facility] Test Catalog Reference: Fourth [place] Definition of Myocardial Infarction. Journal of the [place] [employer] 2018;72:8010-3268 Blood 02/18/2024 1:40 AM EDT 02/18/2024 1:56 AM EDT Narrative Resulting Agency Comment Spec In Lab Hayder Graham MD CHEMISTRY ORDERABLE S Performing Organization Address City/[facility]/ZIP Co de Phone Number [facility] [place] [place] [address] * POCT Glucose (02/17/2024 8:13 PM EDT) Glucose, POC 142 65 - 199 mg/dL [facility] Comment: Supplemental ranges: <140 mg/dL before meals <180 mg/dL all other times of the day Blood 02/17/2024 8:13 PM EDT 02/17/2024 8:13 PM EDT Hayder Graham MD POINT OF CARE TEST ORDERABLES Performing Organization Address [facility]/ZIP Co de Phone Number [facility] [place] [place] [address] * POCT Glucose (02/17/2024 5:42 PM EDT) Glucose, POC 160 65 - 199 mg/dL [facility] Comment: Supplemental ranges: <140 mg/dL before meals <180 mg/dL all other times of the day Blood 02/17/2024 5:42 PM EDT 02/17/2024 5:42 PM EDT Hayder Graham MD POINT OF CARE TEST ORDERABLES Performing Organization Address City/[facility]/ZIP Co de Phone Number [facility] [place] [place] [address] * Hemoglobin (02/17/2024 5:42 PM EDT) Hemoglobin 13.7 13.7 - 16.5 g/dL [facility] Blood 02/17/2024 5:42 PM EDT 02/17/2024 6:10 PM EDT Narrative Resulting Agency Comment Spec In Lab Hayder Graham MD HEMATOLOGY ORDERABL ES Performing Organization Address [facility] Co de Phone Number [facility] [place] [place] [address] * Potassium (02/17/2024 5:42 PM EDT) Potassium [...] CHEMISTRY ORDERABLE S Performing Organization Address [facility] Co de Phone Number [facility] [place] [place] [address] * (ABNORMAL) BLOOD GAS 2 ARTERIAL (02/17/2024 [...] [facility] FIO2 Art 40 % [facility] PF Ratio Art 195 [facility] Blood 02/17/2024 4:18 PM EDT 02/17/2024 4:18 PM EDT Hayder Graham MD POINT OF CARE TEST ORDERABLES [facility] [place] [address] * XR Chest One View (02/17/2024 1:44 PM EDT) WORKSTATION ID [id number] RAD Anatomical Region Laterality Modality Chest N/A Digital Radiogra phy Impressions 02/17/2024 2:12 PM EDT 1. ??No definite pleural fluid collection or pneumothorax. 2. ??Right IJ Woolrich-Kaila catheter tip terminates in a descending branch [...] signed by: Denzel Hankins MD, [facility] ??([phone]), at 02/17/2024 2:12 PM Narrative 02/17/2024 2:12 PM EDT EXAMINATION: XR CHEST ONE VIEW CLINICAL HISTORY: s/p avr/cabg eval effusions TECHNIQUE: 1 view of the chest COMPARISON: Chest x-ray 01/09/2024, chest CT 02/03/2024 FINDINGS: ET tube tip terminates 5.2 cm above the carlos. Right IJ Woolrich-Kaila catheter tip terminates in a descending branch [...] 5.2 cm above the carlos. Right IJ Woolrich-Ganzcatheter tip terminates in a descending branch of [...] fluid collection or pneumothorax. 2. Right IJ Woolrich-Kaila catheter tip terminates in a descending branch [...] care teacher that requested your imaging first. Electronically signed by: Denzel Hankins MD, [facility]([phone]), at 02/17/2024 2:12 PM Hayder Graham MD [...] [facility] FIO2 Art 100 % [facility] PF Ratio Art 320 [facility] Blood 02/17/2024 1:31 PM EDT 02/17/2024 1:31 PM EDT Hayder Graham MD POINT OF CARE TEST ORDERABLES [facility] [place] [place] [address] * (ABNORMAL) Coox2 (02/17/2024 1:21 PM EDT) [...] CARE TEST ORDERABLES [facility] [place] [place] [address] * (ABNORMAL) BLOOD GAS 2 ARTERIAL (02/17/2024 [...] CARE TEST ORDERABLES Performing Organization Address [facility] de Phone Number [facility] [place] [address] * (ABNORMAL) Fibrinogen (02/17/2024 12:10 PM EDT) [...] HEMATOLOGY ORDERABLE S Performing Organization Address [facility] Co de Phone Number [facility] [place] [address] * (ABNORMAL) Thrombin time (02/17/2024 12:10 PM [...] MD HEMATOLOGY ORDERABLE S Performing Organization Address [facility] de Phone Number [facility] [place] [address] * APTT (02/17/2024 12:10 PM EDT) Partial [...] MD HEMATOLOGY ORDERABLE S Performing Organization Address [facility] de Phone Number [facility] [place] [address] * (ABNORMAL) Prothrombin Time (02/17/2024 12:10 PM [...] HEMATOLOGY ORDERABLE S [facility] [place] [address] * (ABNORMAL) Hemogram (02/17/2024 12:10 PM EDT) [...] HEMATOLOGY ORDERABLE S [facility] [place] [address] * (ABNORMAL) BLOOD GAS 2 ARTERIAL (02/17/2024 [...] [facility] Comment: Noted by instrumentation and controls technician. Please note: Patients with WBC >100,000 [...] CARE TEST ORDERABLES [facility] [place] [address] * (ABNORMAL) BLOOD GAS 2 ARTERIAL (02/17/2024 [...] [facility] Comment: Noted by instrumentation and controls technician. Please note: Patients with WBC >100,000 [...] CARE TEST ORDERABLES Performing Organization Address [facility] Co de Phone Number [facility] [place] [address] * (ABNORMAL) Hemoglobin and Hematocrit, blood (02/17/2024 11:04 AM EDT) Hemoglobin 9.6(L) 13.7 - 16.5 g/dL [facility] Hematocrit 28.0(L) 40.5 - 48.5 % [facility] Comment: This result has been called to ALONDRA PAGAN by Eddei López on 02 17 2024 at 1120, and has been read back. Blood 02/17/2024 11:0 4 AM EDT 02/17/2024 11:12 AM EDT Narrative Resulting Agency Comment Spec In Lab Hayder Graham MD HEMATOLOGY ORDERABL ES Performing Organization Address City/[facility]/ZIP Co de Phone Number [facility] [place] [address] * (ABNORMAL) Platelet count (02/17/2024 11:04 AM EDT) Pathologist [facility] Platelet 106(L) 145 - 357 x10(3)/mc L [facility] Immature Plt % 1.6 0.0 - 7.4 % [facility] Comment: Limitation of the Immature Platelet Fraction (IPF)-May be less reliable when the platelet count is less than 78f607/uL due to statistical imprecision. The IPF value [...] in a decreased state of production. References: [employer] The Clinical Value of the Immature Platelet Fraction (IPF) in Cell Recovery Document Number [id number] 03/2011 [employer] The Role of the Immature Platelet Fraction (IPF) in the Differential Diagnosis of Thrombocytopenia, Document [id number] V002/15/14 P014 Blood 02/17/2024 11:0 4 AM EDT 02/17/2024 11:12 AM EDT Narrative Resulting Agency Comment Spec In Lab Hayder Graham MD HEMATOLOGY ORDERABL ES Performing Organization Address City/[facility]/ZIP Co de Phone Number [facility] [place] [address] * (ABNORMAL) Fibrinogen (02/17/2024 11:04 AM EDT) [facility] Fibrinogen 149(L) 200 - 393 mg/dL HOLDEN [...] HEMATOLOGY ORDERABL ES [facility] [place] [place] [address] * (ABNORMAL) BLOOD GAS 2 ARTERIAL (02/17/2024 [...] CARE TEST ORDERABLES Performing Organization Address City/State/[facility] Co de Phone Number [facility] [place] [address] * (ABNORMAL) BLOOD GAS 2 ARTERIAL (02/17/2024 [...] CARE TEST ORDERABLES [facility] [place] [address] * Surgical Pathology Report (02/17/2024 10:01 AM EDT) Final Diagnosis [id number] ? Location: [facility]; [address] [place] [address] The signing pathologist has (i) examined the relevant preparation(s) for the specimen(s) and (ii) rendered or confirmed the diagnosis(es). . ?Surgical Pathology DIAGNOSIS Aortic valve leaflets, excision: Valve leaflets with myxoid degeneration, nodular fibrosis and dystrophic calcifications. Electronically signed by: ?Livier Montoya MD Verified: ??02/24/2024 13:49 ??Pathologist Performed at: ??-[facility] Dept. of Pathology, [place] [address] Academic Specialist: Job Brewer MD, FCAP, ??CLIA Certificate: [id number] SPECIMEN(S) SUBMITTED A - Aortic Valve Leaflets, [...] Sections Processing Blocks submitted for decalcification: A1. Kiln Stoker sections in 1 cassette labeled A1. ??ajw 02/24/2024 1:49 PM EDT [facility] AORTIC STRUCTURE / Unknown 02/17/2024 10:01 AM EDT 02/17/2024 10:01 AM EDT Hayder Graham MD PATHOLOGY/CYTOLOGY ORDERABLES [facility] [place] [address] * Specimen to Pathology (02/17/2024 10:01 AM EDT) AP Specimen 02/17/2024 10:0 1 AM EDT 02/17/2024 10:01 AM EDT Narrative [facility] - 02/17/2024 10:01 AM EDT Specimen requisition ordered. ??Separate Pathology report to follow Hayder Graham MD PATHOLOGY/CYTOLOGY ORDERABLES [facility] [place] [address] * (ABNORMAL) BLOOD GAS 2 ARTERIAL (02/17/2024 [...] CARE TEST ORDERABLES [facility] [place] [address] * (ABNORMAL) BLOOD GAS 2 VENOUS (02/17/2024 9:34 AM EDT) pH, Venous 7.22(Criti marquez) 7.32 - 7.42 [facility] Comment:Noted by instrumentation and controls technician. PCO2, Venous 43 41 - 51 mmHg [facility] Comment:Noted by instrumentation and controls technician. PO2, Venous 57(H) 25 - 40 mmHg [facility] Comment:Noted by instrumentation and controls technician. Bicarbonate, Venous 17.1 mmol/L [facility] Comment:Noted by instrumentation and controls technician. Base Excess, Venous -10.6 mmol/L [facility] Comment:Noted by instrumentation and controls technician. Hgb Blood Gas 11.2(L) 13.7 - 16.5 g/dL [facility] Comment:Noted by instrumentation and controls technician. Oxyhemoglobin, Venous 86.5 % [facility] Comment:Noted by instrumentation and controls technician. Carboxyhemoglob in, Venous 0.3 % [facility] Comment: Noted by instrumentation and controls technician. Nonsmokers: 0.5-1.5% COHB Smokers: Variable, but usually less than 10% Toxic: 20-30% COHB Lethal: Greater than 60% COHB Methemoglobin, Venous 0.0 <=1.5 % [facility] Comment:Noted by instrumentation and controls technician. Na Whole Blood 156(H) 135 - 145 mmol/L [facility] Comment:Noted by instrumentation and controls technician. K Whole Blood 5.5(H) 3.5 - 5.0 mmol/L [facility] Comment: Noted by instrumentation and controls technician. Please note: Patients with WBC >100,000 may have falsely elevated Potassium levels. Contact the Clinical Chemistry Laboratory if there are any questions. ICa Whole Blood 1.03(L) 1.15 - 1.33 mmol/L [facility] Comment: Noted by instrumentation and controls technician. Note: ??Total bilirubin higher than 20 mg/dL may lead to falsely low ionized calcium. CL Whole Blood 100 98 - 107 mmol/L [facility] Comment:Noted by instrumentation and controls technician. Gluc Whole Bld 132 65 - 199 mg/dL [facility] Comment: Noted by instrumentation and controls technician. Diabetes: >=200 mg/dL plus symptoms Lactate WB 1.0 0.5 - 2.2 mmol/L [facility] Comment:Noted by instrumentation and controls technician. Blood Gas Source Venous [facility] Blood 02/17/2024 9:34 AM EDT 02/17/2024 9:34 AM EDT Hayder Graham MD POINT OF CARE TEST ORDERABLES [facility] [place] [place] [address] * (ABNORMAL) BLOOD GAS 2 ARTERIAL (02/17/2024 [...] CARE TEST ORDERABLES Performing Organization Address [facility] de Phone Number [facility] [place] [address] * POCT Glucose (02/17/2024 6:38 AM EDT) Glucose, POC 98 65 - 199 mg/dL [facility] Comment: Supplemental ranges: <140 mg/dL before meals <180 mg/dL all other times of the day Blood 02/17/2024 6:38 AM EDT 02/17/2024 6:38 AM EDT Hayder Graham MD POINT OF CARE TEST ORDERABLES Performing Organization Address [facility] de Phone Number [facility] [place] [address] * Transesophageal Echo/OR (02/17/2024 6:33 AM EDT) [...] 6 hours upon arrival to Unit. Give [place] if unable to take PO, Routine Given [...] dose on Sat02/17/24 at 1400, Until Discontinued, [place] teeth and / or gums. Scan the CHG vial in the [email or web address] Q-Care Oral Care Kit from floor stock. Ventilator-associated pneumonia prophylaxis For use in ICU/Critical care locations ONLY. Obtain kit from Floor Stock location. Scan CHG vial in the [email or web address] Q-Care Oral Care Kit, Routine Given 02/17/2024 [...] 50% of previous rate. Call tank house operator helper if goal not achieved at maximum [...] PHENYLephrine and/or vasopressin ineffective. Call pager # [phone] if initiated. Titrate to keep systolic blood [...] Maximum volume 2 L. Call tank house operator helper for additional fluid orders: pager #[phone]. Rate/Dose Verify 02/18/2024 8:00 AM EDT 1 [...] Routine 1002 (Given - Provider: Ingrid Menjivar, COBLY) metoprolol tartrate (Lopressor) tablet 50 mg (CANCELED) [...] Routine documented in this encounter Care Teams Collection Systems Foreman Relationship Specialty Start Date End Date Aparna Jordan APRN PCP - General Family Medicine 10/21/23 05/26/24 documented as of this encounter
--- OUTSIDE RECORDS SUMMARY | 2024-11-10 10:22 | XMS_ITS | Encounter Summary ---
Author Organization [facility] [place] [address] Care Team Providers Care Environmental Construction Engineer Name Role Phone Vanesas Christian MAURI Primary Care Provider [phone] Reason for Visit * Auth/Cert (Routine) Specialty [...] ARTERIAL GRAFT (WRVU 7.93) Zak Farmer MD [facility] CARDIOTHORACIC [place] [address] [facility] Referral ID Status Reason Start Date Expiration Date Visits Re quested Visits Authorized [id number] 1 1 Encounter Details Date Type Department Care Team (Late st Contact Info) Description 02/17/2024 7:35 AM EDT Anesthesia Event Main Operating Room [facility] [place] [phone] Roman York MD [facility] ANESTHESIOLOGY [place] [address] Anesthesia Record Procedure Summary Procedure Name Responsible [...] by Sadiq Woo RN PIV 02/17/24; 0715; usuw-uzi-zkysfe catheter system; 18 gauge; cephalic vein (lateral [...] th e electric, gas, oil, or water [employer] threatened to shut off services in your [...] Procedure Summary Date: 02/17/24 Room / Location: [facility] OR [address] [place] [address] MAIN OR Anesthesia Start: 734 Anesthesia Stop: [...] unfiled device data. Patient Location: [facility] Level of Consciousness: Sedated (Pharmacologic/Intentional) Pain Management: [...] PM EST Office Visit Cardiology at [address] [place] [address] Sheila Johnson, CONCRETE FOREMAN [address] [facility], [place] [address] documented as of this encounter [...] documented in this encounter Care Teams Environmental Construction Engineer Relationship Specialty Start Date End Date Vanessa Christian APRN PCP - General Family Medicine 10/21/23 05/26/24 documented as of this encounter
--- OUTSIDE RECORDS SUMMARY | 2024-11-10 10:23 | XMS_ITS | Encounter Summary ---
Author Organization [facility] [place] [address] Care Team Providers Care Senior Training Specialist Name Role Phone Vanessa Christian APRN Primary Care Provider [phone] Encounter Details Date Type Department Care Team (Late st Contact Info) Description 10/21/2023 Abstract Cardiology at [address] [phone] Adam Mayes RN Social History Tobacco Use [...] PM EST Office Visit Cardiology at [address] [phone] Sheila Johnson APRN [address] [facility] [place] [address] documented as of this encounter Visit Diagnoses Not on filedocumented in this encounter Care Teams Senior Training Specialist Relationship Specialty Start Date End Date Vanessa Christian APRN PCP - General Family Medicine 10/21/23 05/26/24 documented as of this encounter
--- OUTSIDE RECORDS SUMMARY | 2024-11-10 10:23 | XMS_ITS | Encounter Summary ---
[place] [address] Care Team Providers Care Integrity Director Name Role Phone Victor M Lafleur MD Primary Care Provider [phone] Reason for Visit * Reason Onset Date Comments Referral 09/20/2023 Encounter Details Date Type Department Care Team (Late st Contact Info) Description 09/20/2023 Telephone Cardiology at [address] [phone] Karen Billy, medical lead Social History Tobacco Use Types Packs/Day Years [...] PM EST Office Visit Cardiology at [address] [phone] Sheila Johnson, MAURI [address] [facility] [place] [address] documented as of this encounter Visit Diagnoses Not on filedocumented in this encounter Care Teams Integrity Director Relationship Specialty Start Date End Date Victor M Lafleur MD PCP - General 10/02/13 10/20/23 documented as of this encounter
--- OUTSIDE RECORDS SUMMARY | 2024-11-10 10:23 | XMS_ITS | Encounter Summary ---
Author Organization [facility] [place] [address] Care Team Providers Care Reduction Furnace Operator Name Role Phone Vanessa Christian APRN Primary Care Provider [phone] Encounter Details Date Type Department Care Team [...] PM EST Office Visit Cardiology at [address] [phone] Sheila Johnson APRN [address] [facility] [place] [address] documented as of this encounter Visit Diagnoses Not on filedocumented in this encounter Care Teams Reduction Furnace Operator Relationship Specialty Start Date End Date Vanessa Christian APRN PCP - General Family Medicine 10/21/23 05/26/24 documented as of this encounter
--- OUTSIDE RECORDS SUMMARY | 2024-11-10 10:23 | XMS_ITS | Data Portability ---
Author Organization [place] - [facility] Address [address] [place] [address] Care Team Providers Care Site Interpreter Name Role Phone APARNA JORDAN Primary Care Provider SOFIA MCALLISTER Dentist Assessment No assessment recorded. Plan of Treatment Reminders Order Date Submit Date Provider Last Modified By Organization Details Last Modified Time Details Appointments None recorded . Lab magnesiu m, serum or plasma 024 12/18/19 [email or web address] [facility] (Registration ), [address] [place] [address] [place], [address], 4 14:25:25 BMP, serum or plasma 024 12/18/19 24 [email or web address] [facility] (Registration ), [address] [place] [address] [place], [address], 4 14:25:24 Referral None recorded . Procedures None recorded . Surgeries None recorded . Imaging None recorded . Medication Orders None recorded . Patient TargetsNo targets recorded. Patient Instructions Encounter Date Encounter Id Patient Instructions Last Modified By Organization Details Last Modified Time 09/19/2023 [id number] SCHEDULE FOLLOW UP IN 3 MONTHS IF YOU DONT HEAR FROM THE CARDIOLOGY DEPT THIS WEEK CALL [facility] LANDSCAPE ARCHITECT AND PLANNER AND LET THEM KNOW IF YOUR BREATHING GETS WORSE- GO TO THE ER, DONT OVER DO THINGS PHYSICALLY EXPECT A CALL FROM SARA ZAFAR RE: UPDATING YOUR POWER OF PHYSICIST CRYOGENICS (NEED 2 WITNESSED SIGNATURES) Not available 09/19/2023 09:25:07 12/18/2023 [id number] Karlos: expect a call from the [place] team [place] [facility] [place] [...] mg/dL 8.5-10 .1 normal Not Available [address] [place], [address] 12/18/2023 17:09:55 12/18/19 24 12/18/2023 LASIC METAB OLIC PANEL glucose 90 mg/dL 74-106 normal Not Available Baljit montemayor [address] [place], [address] 12/18/2023 17:09:55 12/18/19 24 12/18/2023 LASIC METAB OLIC PANEL BUN 14 mg/dL 7-18 normal Not Available Baljit montemayor [address] [place], [address] 12/18/2023 17:09:55 12/18/19 24 12/18/2023 LASIC METAB OLIC PANEL creatinine 1.0 mg/dL 0.70-1 .30 normal Not Available [address] [place], [address] 12/18/2023 17:09:55 12/18/19 24 12/18/2023 LASIC METAB [...] er-ag ed adult s. Not Available [address] [place], [address] 12/18/2023 17:09:55 12/18/19 24 12/18/2023 LASIC METAB OLIC PANEL sodium 139 mmol/ L 136-14 5 normal Not Available [address] [place], [address] 12/18/2023 17:09:55 12/18/19 24 12/18/2023 LASIC METAB OLIC PANEL potassium 4.9 mmol/ L 3.5-5. 1 normal Not Available [address] [place], [address] 12/18/2023 17:09:55 12/18/19 24 12/18/2023 LASIC METAB OLIC PANEL chloride 104 mmol/ L 98-107 normal Not Available [address] [place], [address] 12/18/2023 17:09:55 12/18/19 24 12/18/2023 LASIC METAB OLIC PANEL CO2 30.9 mmol/ L 21.0-3 2.0 normal Not Available [address] [place], [address] 12/18/2023 17:09:55 12/18/19 24 12/18/2023 LASIC METAB OLIC PANEL anion gap 4.1 mmol/ L 3-11 normal Not Available [address] [place], [address] 12/18/2023 17:09:55 12/18/19 24 12/18/2023 MAGNE SIUM magnesium 1.8 mg/dL 1.8-2. 4 normal Not Available [address] [place], [address] 12/18/2023 17:09:56 07/27/20 24 07/27/2024 LIPID 2 cholesterol 131 mg/dL <200 Not Available [address] [place], [address] 07/27/2024 11:59:38 07/27/20 24 07/27/2024 LIPID 2 triglyceride 162 mg/dL <150 high Not Available [address] [place], [address] 07/27/2024 11:59:38 07/27/2007/27/2024 LIPID 2 HDL cholesterol 35 mg/dL 40-60 low Not Available Dominique blackburn [address] [place], [address] 07/27/2024 11:59:38 07/27/2007/27/2024 LIPID 2 calculated LDL 64 mg/dL <100 Natio nal Kayla stero l Educa tion Progr am (NCEP -ATPI II) class ifica tions : Kayla stero l <200 mg/dL Freda able Kyala stero l 200-2 39 mg/dL Borde rline [...] 18 years or older . Not Available [address] [place], [address] 07/27/2024 11:59:38 07/27/2007/27/2024 COMPR EHENS MADYSON METAB OLIC PANEL calcium 9.2 mg/dL 8.5-10 .1 normal Not Available [address] [place], [address] 07/27/2024 11:59:38 07/27/2007/27/2024 COMPR EHENS MADYSON METAB OLIC PANEL glucose 83 mg/dL 74-106 normal Not Available Baljit montemayor [address] [place], [address] 07/27/2024 11:59:38 07/27/2007/27/2024 COMPR EHENS MADYSON METAB OLIC PANEL BUN 20 mg/dL 7-18 high Not Available Baljit montemayor [address] [place], [address] 07/27/2024 11:59:38 07/27/2007/27/2024 COMPR EHENS MADYSON METAB OLIC PANEL creatinine 1.0 mg/dL 0.70-1 .30 normal Not Available [address] [place], [address] 07/27/2024 11:59:38 07/27/2007/27/2024 COMPR EHENS MADYSON METAB [...] er-ag ed adult s. Not Available [address] [place], [address] 07/27/2024 11:59:38 07/27/2007/27/2024 COMPR EHENS MADYSON METAB OLIC PANEL total protein 6.8 g/dL 6.4-8. 2 normal Not Available [address] [place], [address] 07/27/2024 11:59:38 07/27/2007/27/2024 COMPR EHENS MADYSON METAB OLIC PANEL albumin 3.5 g/dL 3.4-5. 0 normal Not Available [address] [place], [address] 07/27/2024 11:59:38 07/27/2007/27/2024 COMPR EHENS MADYSON METAB OLIC PANEL bilirubin, total 0.77 mg/dL 0.2-1. 0 normal Not Available [address] [place], [address] 07/27/2024 11:59:38 07/27/2007/27/2024 COMPR EHENS MADYSON METAB OLIC PANEL alk phos 84 U/L 46-116 normal Not Available [address] [place], [address] 07/27/2024 11:59:38 07/27/2007/27/2024 COMPR EHENS MADYSON METAB OLIC PANEL sodium 141 mmol/ L 136-14 5 normal Not Available [address] [place], [address] 07/27/2024 11:59:38 07/27/2007/27/2024 COMPR EHENS MADYSON METAB OLIC PANEL potassium 4.8 mmol/ L 3.5-5. 1 normal Not Available [address] [place], [address] 07/27/2024 11:59:38 07/27/2007/27/2024 COMPR EHENS MADYSON METAB OLIC PANEL chloride 105 mmol/ L 98-107 normal Not Available [address] [place], [address] 07/27/2024 11:59:38 07/27/2007/27/2024 COMPR EHENS MADYSON METAB OLIC PANEL CO2 30.9 mmol/ L 21.0-3 2.0 normal Not Available [address] [place], [address] 07/27/2024 11:59:38 07/27/2007/27/2024 COMPR EHENS MADYSON METAB OLIC PANEL anion gap 5.1 mmol/ L 3-11 normal Not Available [address] [place], [address] 07/27/2024 11:59:38 07/27/2007/27/2024 COMPR EHENS MADYSON METAB OLIC PANEL AST 20 U/L 15-37 normal Not Available Baljit montemayor [address] [place], [address] 07/27/2024 11:59:38 07/27/2007/27/2024 COMPR EHENS MADYSON METAB OLIC PANEL ALT 32 U/L 16-63 normal Not Available Baljit montemayor [address] [place], [address] 07/27/2024 11:59:38 07/27/2007/27/2024 CREAT INE KINAS E creatine kinase 133 U/L 39-308 normal Not Available [facility] [address] , [place], [address] 07/27/2024 11:48:30 09/11/2012/05/2022 trans -thor acic echoc ardio gram (TTE) (PROC ) No observ ation record ed. [email or web address] [facility] Xray [address] , [place], [address], 09/13/2023 09:29:52 09/11/20 23 06/01/2022 XR, hip, unila teral No observ ation record ed. [email or web address] Not Available 2022 09:29:19 09/11/2012/06/2019 , echoc ardio gram No observ ation record ed. [email or web address] [facility] [address] [place], [address], 09/13/2023 09:28:49 07/27/20 24 07/27/2024 x-ray imagi ng repor t Flor t Name: Kanu Hugo Unit #: [id number] Loc: DI Orderi ng Provid er: Dc Louis DO Accoun t #: [id number] Status : REG CLI Primar y Care Provid er: Danna Jordan LACE INSPECTOR Date of Exam: 07/08 10/30 Sex: [...] Vascul ar calcif icatio n is noted lab head iorly in the poplit eal artery . [...] error, please notify us immedi ately at [phone] and return the origin al report to us at the addres s above. Thank- you. INTERFACE [facility] [address], [place], [address] 07/27/2024 18:10:30 Result Notes None recorded. Problems Name Problem SNOMED Code Status Onset Date Resolution Date Notes Provider Name and Address Organization Details Recorded Time Gastroes ophageal reflux disease without esophagi tis 161001424 Active 2022 Problem Code: K21.9; Problem Code Type: ICD-10; Not Available [facility] 4 05:35:57 Glaucoma 01529076 Active 2022 Problem Code: H40.9; Problem Code Type: ICD-10; Not Available [facility] 4 05:35:57 Hyperlip idemia 17624289 Active 2022 Problem Code: E78.5; Problem Code Type: ICD-10; Not Available [facility] 4 05:35:57 [facility] l hyperten marisol 04281290 Active 2022 Problem Code: I10; Problem Code Type: ICD-10; Not Available [facility] 4 05:35:57 Pain of left hip joint 62196376267 9100 Active 2022 Problem Code: M25.552; Problem Code Type: ICD-10; Not Available [facility] 4 05:35:57 Idiopath ic osteoart hritis 747124811 Active 2022 Problem Code: M16.12; Problem Code Type: ICD-10; Not Available [facility] 4 05:35:57 Inguinal hernia 394576880 Active 2022 Problem Code: K40.90; Problem Code Type: ICD-10; Not Available [facility] 4 05:35:57 Heart murmur 76805190 Active 2022 Problem Code: R01.1; Problem Code Type: ICD-10; Not Available [facility] 4 05:35:57 Dyspnea 253059663 Active 2022 Problem Code: R06.09; Problem Code Type: ICD-10; Not Available [facility] 4 05:35:57 Chest pain 55265016 Active 2022 Problem Code: R07.89; Problem Code Type: ICD-10; Not Available [facility] 4 05:35:57 Melanocy tic nevus 515546730 Active 2022 Problem Code: D22.9; Problem Code Type: ICD-10; Not Available [facility] 4 05:35:57 Aortic stenosis , non-rheu matic 043963381 Active 2022 Problem Code: I35.0; Problem Code Type: ICD-10; Not Available [facility] 4 05:35:58 Aortic stenosis , non-rheu matic 662041430 Completed 202208/14/2023 Problem Code: I35.0; Problem Code Type: ICD-10; Not Available [facility] 4 05:35:58 Indigest ion 164185105 Active 2023 GLORIA CAMP LPN null, [facility] 4 08:48:57 Coronary artery bypass grafts x 3 Active 2023 Kelly Duran RN null, [facility] 4 10:30:01 At increase d risk of atrial fibrilla tion 623374866 Active [address], [place], [address] , [facility] 4 13:52:01 Anemia 691646782 Active [address], [place], [address] , [facility] 4 13:54:39 Problem Notes None recorded. Procedures Surgical History Date Name Laterality Status Provider Name and Address Organization Details Recorded Time coronary artery bypass graft completed Hudson Reeder MA [facility] 03/04/2024 14:54:09 Imaging Results Imaging Date Name Status LastModified by Organization Details LastModified Time 12/05/2022 trans-thoracic echocardiogram (TTE) (PROC) completed [address] Xray [address] , [place], [address], 09/13/2023 09:29:52 06/01/2022 XR, hip, unilateral [place] [address] Information not available 09/13/2023 09:29:19 12/06/2019 US, echocardiogram completed [address]- Cardiology [address] [place] [address] [place], [address], 09/13/2023 09:28:49 07/27/2024 x-ray imaging report completed INTERFACE [address] [place], [address] 07/27/2024 18:10:30 Procedure Notes None recorded. Medical [...] Take 1 hr prior. Started [place] [facility] Not [...] MOUTH DAILY 02/24 completed stopped by [facility] Not [...] by oral route as needed. active [facility] Not Available Not Available No t Available Aspirin Childrens 81 mg chewable tablet Take 1 tablet by mouth once a day active Not Available Not Available No t Available lisinopri l 5 mg tablet TAKE 1 TABLET BY MOUTH EVERY DAY 02/24 completed stopped by [facility] [place] Not [...] by oral route. active started by [facility] Not Available Not Available Not Available dorzolami de 2 % (PF) eye drops 1 drop both eyes bid 12/17 completed Not Available Not Available Not Available Vitals Date Recorded Body weight Body mass index (BMI) Body height Heart rate Systolic blood pressure Diastolic blood pressure Provider Name and Address Organization Details Last Updated DateTime 3 72390.7 8 g 23.7 kg/m2 167.64 cm 64 /min 110 mm[Hg] 60 mm[Hg] GLORIA CAMP LPN [facility] 3 08:48:49 Date Recorded Body height Body mass index (BMI) Body weight Heart rate Systolic blood pressure Diastolic blood pressure Provider Name and Address Organization Details Last Updated DateTime 4 167.64 cm 24.6 kg/m2 76916.4 4 g 60 /min 112 mm[Hg] 80 mm[Hg] GLORIA CAMP LPN [facility] 4 08:38:13 Date Recorded Body height Body mass index (BMI) Body weight Heart rate Oxygen saturation Oxygen saturation in Arterial blood by Pulse oximetry Systolic blood pressure Diastolic blood pressure Provider Name and Address Organization Details Last Updated DateTime 4 167.64 cm 22.6 kg/m2 47128.6 5 g 63 /min 99 % 99 % 102 mm[Hg] 54 mm[Hg] Hudson Reeder MA [facility] 4 10:27:28 Social History Question Answer Notes LastModified by Organizat ion Details LastModified Time Tobacco Smoking Status Former Smoker Hudson Reeder MA null, [place] [facility]. 03/06/2024 10:24:50 Do You Have An Advance Directive? Yes Registered 08/15/23 Updated 01/12/24 Information not available 01/15/2024 When Did You Quit Smoking? 11-15years sincelastc igarette [email or web address] Information not available 03/06/2024 Do You Have A Medical Power Of Paper Coating Supervisor? Yes Received 08/30/23, Scanned. Copies Sent To [facility] And Patient 09/02/23. Information not available 09/02/2023 What Was The Date Of Your Most Recent Tobacco Screening? 03/06/2024 [email or web address] Information not available 03/06/2024 What Is Your Current Pack Years? 30ormorepa ckyears [email or web address] Information not available 03/06/2024 How Much Tobacco Do You Smoke? 1 PPD Information not available 03/06/2024 How Many Years Have You Smoked Tobacco? 40 [email or web address] Information not available 03/06/2024 Do You Or Have You Ever Used Any Other Forms Of Tobacco Or Nicotine? No [email or web address] Information not available 03/06/2024 Sex: Male Functional [...] Time Tdap 3 completed Not Available [facility] 10/18/2023 05:30:17 Td(adult) unspecified formulation 3 completed Not Available [facility] 10/18/2023 05:30:17 COVID-19, mRNA, LNP-S, PF, 100 mcg/0.5mL dose or 50 mcg/0.25mL dose 1 completed Not Available [facility] 10/18/2023 05:30:18 COVID-19, mRNA, LNP-S, PF, 100 mcg/0.5mL dose or 50 mcg/0.25mL dose 1 completed Not Available [facility] 10/18/2023 05:30:18 COVID-19, mRNA, LNP-S, PF, 100 mcg/0.5mL dose or 50 mcg/0.25mL dose 1 completed Not Available [facility] 10/18/2023 05:30:18 influenza, unspecified formulation 1 completed Not Available [facility] 10/18/2023 05:30:18 influenza, unspecified formulation 2 completed Not Available [facility] 10/18/2023 05:30:18 influenza, unspecified formulation 0 completed Not Available [facility] 10/18/2023 05:30:18 influenza, unspecified formulation 9 completed Not Available [facility] 10/18/2023 05:30:18 influenza, unspecified formulation 8 completed Not Available [facility] 10/18/2023 05:30:18 Past Encounters Encounter ID Performer Location Encounter Start Date Encounter Closed Date Diagnosis/Indication Diagnosis SNOMED-CT Code Diagnosis ICD10 Code Diagnosis Note [id number] APARNA JORDAN [address] [address] 09/19/2023 08:39:51 09/19/2023 09:17:42 Aortic valve stenosis 48603130 I35.0 Moderate? severe? he was referred subacutely to [facility] cardiology almost 6 weeks ago, front office staff contacted their clinic and they said they did not get the referral, will be refaxed today if patient does not hear from them by the end of the week he knows to contact [facility]. His SILVA is not worsening, he understand s that if it does get worse he needs to go to the emergency room. Essential hypertension 42988867 I10 BP at goal 110/60, continues on lisinopril 5 mg daily. [id number] AMRITA PUENT[address] [address] 12/18/2023 08:23:47 12/18/2023 09:29:09 Aortic stenosis, non-rheumatic 913585106 I35.0 I have left a message for the structural heart team at [facility] regarding patient's referral, will have the front office staff [facility] at [facility]. I will forward my note from today now patient with associated chest pressure at times w/SILVA, goal is to get an appointmen t for the patient within the next few days. Meanwhile, we will have him limit exertional physical activity, he understand s to go to the emergency room if the chest pressure returns and does not resolve. Essential hypertension 16334362 I10 He has increased the lisinopril to 10 mg on his own, will reorder and check a BMP today BP at goal 112/80 Nonulcer dyspepsia 24208 07 K30 Check BMP and magnesium, continues with OTC PPI daily. Cramp in lower leg 89836 8007 R25.2 Intermitte nt, he is not well-hydra xochilt, advised him to increase his fluids to at least 6 glasses of water a day, will check BMP and magnesium today. [id number] TATYANA LEDEZMA MD [facility] [address] [place] [address] 03/06/2024 10:15:07 03/06/2024 11:14:28 Postoperative visit 552807976 Z48.89 Karlos doing very well. Currently. Slowly resume usual activities . He knows to not lift anything more than 5 pounds until given guidance from CT surgery. He is not driving. He no longer feels he needs any pain medication and will stop taking the Tylenol except as needed. Aortic rosa m nosis, non-rheumatic 782535198 I35.0 Status post aortic valve replacemen t, clinically doing well. He feels his breathing is getting back on track again. He knows to use amoxicilli n for dental/oth er procedures . He continues on apixaban, aspirin. He is on omeprazole . Stented co ronary artery 265730102 Z95.5 Now status post CABG. He will be starting cardiac rehab soon, does not yet have a local cardiology follow-up scheduled, he will contact [facility] [place] make sure [place] was sent. He will continue on the aspirin, atorvastat in. He is on metoprolol 100 mg twice daily. Blood pressure in the office today was 102/54, pulse 63. He denies lightheade dness. He can discuss with cardiology potential dosage reduction in the future. At [facility] risk of atrial fibrillation 381194300 Z91.89 , He did have postoperat madyson A-fib although that did resolve. It does not sound like he is having any significan t symptoms suggestive of A-fib currently. Sounded normal sinus rhythm in the office. He does continue on apixaban. Anemia 224998734 D64.9 Mild postop. Hemoglobin was 12.3 postoperat ively. Can consider repeat at the next visit. Health Concerns Section Related Observation LastModified by Organization Detai ls LastModified Time None Recorded Concern Status LastModified by Organization Details LastModified Time None Recorded Advance Directives Directive Y: Registered 08/15/23Updated 01/12/24 Payers Encounter Date Sequence Insurance Name Policy Number Policy Alicia Covered Member ID Alicia Member ID Guarantor Name 12/18/2023 1 [facility] [id number] Karlos C Patenaude [id number] Karlos C Patenaude 03/06/2024 1 [facility] [id number] Karlos C Patenaude [id number] Kalros C Patenaude Notes Date Note Type Note Provider Name and Address Organization Details Recorded Time 09/19/2023 text/html 63-year-old man here for follow-up hypertension, severe aortic stenosis.,He works full-time at [employer]. He lives at home with his dog. He has not heard from [facility] cardiology? referred mid-August.He did decrease his [...] to mild aortic insufficiency. [address], [place], [address], [facility]. 09/19/2023 13:31:38 12/18/2023 text/html 63-year-old man here for follow-up hypertension, severe aortic stenosis.,He works full-time at [employer]. He lives at home with his dog. [...] Ovaltine in his coffee. [address], [place], [address], [facility]. 12/18/2023 11:43:00 03/06/2024 text/html Karlos is here today for a postop evaluation MD [address], [place], [address], [facility]. 03/08/2024 13:57:34
--- OUTSIDE RECORDS SUMMARY | 2024-11-10 10:23 | XMS_ITS | Encounter Summary ---
Author Organization [facility] [place] [address] Care Team Providers Care Bow String Maker Name Role Phone Vanessa Christian Lane DOTSON Primary Care Provider [phone] Encounter Details Date Type Department Care Team (Late st Contact Info) Description 01/09/2024 2:30 PM EDT Clinical Support Same Day at [facility] [place] [id number] Social History Tobacco Use Types Packs/Day Years [...] you tube link for a video about [facility] cardiac surgery. Instructed to bring the booklet [...] PM EST Office Visit Cardiology at [address] [address] Sheila Johnson APRN [address] [place] [address], [facility] [place] [address] documented as of this encounter Visit Diagnoses Not on filedocumented in this encounter Care Teams Bow String Maker Relationship Specialty Start Date End Date Vanessa Christian APRN PCP - General Family Medicine 10/21/23 05/26/24 documented as of this encounter
--- OUTSIDE RECORDS SUMMARY | 2024-11-10 10:23 | XMS_ITS | Encounter Summary ---
Author Organization [facility] Address [facility] [place] [address] Care Team Providers Care Car Customizer Name Role Phone Vanessa Christian MAURI Primary Care Provider [phone] Encounter Details Date Type Department Care Team (Latest Contact Info) Description 01/09/2024 3:02 PM EDT - 01/09/2024 11:59 PM EDT Hospital Encounter XRay at [address] [place] [address] Zak Farmer MD [facility] [place] [address] Nonrheumatic aortic valve stenosis Discharge Disposition: Home [...] 3:00 PM EST Office Visit [facility] at [facility] [place] [address] [place] [address] Sheila Johnson APRN [address] [facility], [facility] [place] [address] documented as of this encounter Procedures Procedure [...] disorders documented in this encounter Care Teams Car Customizer Relationship Specialty Start Date End Date Vanessa Christian APRN PCP - General Family Medicine 10/21/23 05/26/24 documented as of this encounter
--- OUTSIDE RECORDS SUMMARY | 2024-11-10 10:23 | XMS_ITS | Encounter Summary ---
Author Organization [facility] [place] [address] Care Team Providers Care Thoracic Medicine Specialist Name Role Phone Vanessa Christian APRN Primary Care Provider [phone] Encounter Details Date Type Department Care Team (Late st Contact Info) Description 10/21/2023 Abstract Cardiology at [address] [phone] Adam Mayes RN Social History Tobacco Use [...] PM EST Office Visit Cardiology at [address] [address] Sheila Johnson APRN 580 [facility] [place] [address] documented as of this encounter Visit Diagnoses Not on filedocumented in this encounter Care Teams Thoracic Medicine Specialist Relationship Specialty Start Date End Date Vanessa Christian APRN PCP - General Family Medicine 10/21/23 05/26/24 documented as of this encounter
--- OUTSIDE RECORDS SUMMARY | 2024-11-10 10:23 | XMS_ITS | Encounter Summary ---
Author Organization [facility] Address [facility] Ivana linareseileen [place] [id number] Care Team Providers Care Comb Setter Name Role Phone Vanessa Christian MAURI Primary Care Provider [phone] Reason for Referral * Consultation (Routine) - Closed Specialty Diagnoses / Procedures Referred By Contac t Referred To Contact Cardiac Surgery Diagnoses Nonrheumatic aortic valve stenosis significant - TAVR ( defers to Card Surg d/t age) Errol Loya MD [facility] [place] [address] Zak Farmer MD [facility] [place] [address] Referral ID Status Reason Start Date Expiration Date V isits Requested Visits Authorized [id number] Closed Consult, Test & Treat 10/21/2023 10/20/2024 1 1 Reason for Visit * Reason Comments Chest Pain Shortness of Breath Aortic Stenosis Encounter Details Date Type Department Care Team (Late st Contact Info) Description 10/21/2023 1:20 PM EST Office Visit Cardiology at [address] [address] Errol Loya MD [facility] [address] Nonrheumatic aortic valve stenosis Social History Tobacco [...] Diagnosis Aortic stenosis 12/2022 TTE ([facility]): VITA 0.8-0.9 cm2 (MG 28 mmHg, [...] PM EST Office Visit Cardiology at [address] [address] Sheila Johnson APRN 580 [facility] [place] [address] Scheduled Referrals Name Type Priority Associated Diagnoses Order Schedule Amb Referral to Structural Heart Outpatient Referral Routine Nonrheumatic aortic valve stenosis Ordered: 10/21/2023 documented as of this encounter Visit Diagnoses Diagnosis Nonrheumatic aortic valve stenosis Aortic valve disorders documented in this encounter Care Teams Comb Setter Relationship Specialty Start Date End Date Vanessa Christian APRN PCP - General Family Medicine 10/21/23 05/26/24 documented as of this encounter
--- OUTSIDE RECORDS SUMMARY | 2024-11-10 10:23 | XMS_ITS | Encounter Summary ---
Author Organization [facility] [place] [address] Care Team Providers Care Crab Steamer Name Role Phone Vanessa Christian MAURI Primary Care Provider [phone] Encounter Details Date Type Department Care Team (Late st Contact Info) Description 01/10/2024 Orders [place] [phone] Lawson Napoles PA [facility] [place] [address] Screening for cardiovascular condition; Aortic valve stenosis, [...] PM EST Office Visit Cardiology at [address] [place] [phone] Sheila Johnson APRN [address] [facility] [address] [place] [address] documented as of this encounter Visit Diagnoses Diagnosis Screening for cardiovascular condition Screening for other and unspecified cardiovascular conditions Aortic valve stenosis, etiology of cardiac valve disease unspecified documented in this encounter Care Teams Crab Steamer Relationship Specialty Start Date End Date Vanessa Christian APRN PCP - General Family Medicine 10/21/23 05/26/24 documented as of this encounter
--- OUTSIDE RECORDS SUMMARY | 2024-11-10 10:23 | XMS_ITS | Encounter Summary ---
Author Organization [facility] [place] [address] Care Team Providers Care Visual Basic .Net Developer Name Role Phone Vanessa Christian MAURI Primary Care Provider [phone] Encounter Details Date Type Department Care Team (Late st Contact Info) Description 12/26/2023 Notes Only Cardiology at [address] [address] Neftali Ernandez MD [facility] [place] [address] Social History Tobacco Use Types Packs/Day Years [...] 1:37 PM EDT Echocardiogram images reviewed from [facility]. Indeed, the aortic valve appears severely stenotic. Cannotrule out bicuspid valve documented in this encounter Plan of Treatment Upcoming Encounters Date Type Department Care Team (Late st Contact Info) Description 11/30/2024 3:00 PM EST Office Visit Cardiology at [address] [address] Sheila Johnson APRN [address] [place] [address], [facility] [place] [address] documented as of this encounter Visit Diagnoses Not on filedocumented in this encounter Care Teams Visual Basic .Net Developer Relationship Specialty Start Date End Date Vanessa Christian APRN PCP - General Family Medicine 10/21/23 05/26/24 documented as of this encounter
--- OUTSIDE RECORDS SUMMARY | 2024-11-10 10:23 | XMS_ITS | Encounter Summary ---
[place] [address] Care Team Providers Care Mate First Name Role Phone Vanessa Christian Lane DOTSON Primary Care Provider [phone] Reason for Referral * Diagnostic Test (Routine) - Closed Specialty Diagnoses / Procedures Referred By Contac t Referred To Contact Radiology Diagnoses Nonrheumatic aortic valve stenosis Procedures CT Chest wo Contrast (Generic) Louisa Cho PA [facility] DR CARDIOTHORACIC [place] [address] [facility] [place] [address] Referral ID Status Reason Start Date Expiration Date V isits Requested Visits Authorized [id number] Closed Specialty Service Requested 01/10/2024 07/11/2025 1 1 Reason for Visit * Diagnostic Test (Routine) - Closed Specialty Diagnoses / Procedures Referred By Contac t Referred To Contact Radiology Diagnoses Nonrheumatic aortic valve stenosis Procedures CT Chest wo Contrast (Generic) Louisa Cho PA [facility] CARDIOTHORAC[place] [address] [facility] [place] [address] Referral ID Status Reason Start Date Expiration Date V isits Requested Visits Authorized [id number] Closed Specialty Service Requested 01/10/2024 07/11/2025 1 1 Encounter Details Date Type Department Care Team (Latest Contact Info) Description 02/03/2024 7:36 AM EDT - 02/03/2024 8:05 AM EDT Hospital Encounter CT Scan at [facility] [place] [address] Zak Farmer MD [facility] CARDIOTHORACIC [place] [address] Nonrheumatic aortic valve stenosis Discharge Disposition: Home [...] 3:00 PM EST Office Visit Cardiology at [place] [address] [place] [address] Sheila Johnson, RESE[employer] CENTER PARTNER 580 [facility] [place] [address] documented as of this encounter Procedures Procedure Name Priority Date/Time Associated Diagnosis Comments CT CHEST WO CONTRAST (GENERIC) Routine 02/03/2024 7:44 AM EDT Nonrheumatic aortic valve stenosis documented in this encounter Results * CT Chest wo Contrast (Generic) (02/03/2024 7:44 AM EDT) Pathologist [employer] WORKSTATION ID [id number] DH RAD Anatomical Region Laterality Modality Chest [...] questions please contact the health child care coordinator that requested your imaging first. ? Electronically signed by: Rogerio Wright MD, [facility] ([phone]), at 02/03/2024 10:00 AM Narrative 02/03/2024 10:00 [...] nodule along the minor fissure (series 302 [id number]) and a 8 mm right lower lobe [...] have questions please contactthe health child care coordinator that requested your imaging first. Electronically signed by: Rogerio Wright MD, [facility]([phone]), at 02/03/2024 10:00 AM Zak Farmer MD IMG CT ORDERABLES documented in this encounter Visit Diagnoses Diagnosis Nonrheumatic aortic valve stenosis Aortic valve disorders documented in this encounter Care Teams Mate First Relationship Specialty Start Date End Date Vanessa Christian APRN PCP - General Family Medicine 10/21/23 05/26/24 documented as of this encounter
--- OUTSIDE RECORDS SUMMARY | 2024-11-10 10:23 | XMS_ITS | Encounter Summary ---
Author Organization [facility] Address [facility] [place] [address] Care Team Providers Care Business Technology Analyst Name Role Phone Vanessa Christian MAURI Primary Care Provider [phone] Reason for Visit * Consultation (Routine) - Closed Specialty Diagnoses / Procedures Referred By Contac t Referred To Contact Cardiac Surgery Diagnoses Nonrheumatic aortic valve stenosis significant - TAVR ( defers to Card Surg d/t age) Neftali Ernandez MD [facility] [place] [address] Zak Farmer MD [facility] [place] [address] Referral ID Status Reason Start Date Expiration Date V isits Requested Visits Authorized [id number] Closed Consult, Test & Treat 10/21/2023 10/20/2024 1 1 Encounter Details Date Type Department Care Team (Late st Contact Info) Description 01/09/2024 1:40 PM EDT Office [place] [address] Zak Farmer MD [facility] [place] [address] Nonrheumatic aortic valve stenosis Social [...] office. Best personal regards, Zak Farmer MD [phone] In aggregate 55 minutes were spent evaluating [...] 3:00 PM EST Office Visit Cardiology at [place] [address] [place] [address] Sheila Johnson, MAURI [address] [facility] [place] [address] documented as of this encounter Results * [...] MD CHEMISTRY ORDERABLE S [facility] [place] [address] * Hepatic Function Panel (01/09/2024 2:58 PM [...] S Performing Organization Address [facility] de Phone Number [facility] [place] [address] * Prothrombin Time (01/09/2024 2:58 PM EDT) [facility] Prothrombin Time 10.6 9.4 - 12.5 [...] ORDERABL ES Performing Organization Address City/[facility] Co de Phone Number [facility] [place] [address] * Type and Screen Future Surgery, [facility] SAME DAY PROGRAM [...] Zak Farmer MD BLOOD BANK LAB ORDE [facility] Organization Address City/State/ZIP Co de Phone Number [facility] [place] [address] documented in this encounter Visit Diagnoses Diagnosis Nonrheumatic aortic valve stenosis Aortic valve disorders Nonrheumatic aortic valve stenosis Aortic valve disorders documented in this encounter Care Teams Business Technology Analyst Relationship Specialty Start Date End Date Vanessa Christian, MAURI PCP - General Family Medicine 10/21/23 05/26/24 documented as of this encounter
--- OUTSIDE RECORDS SUMMARY | 2024-11-10 10:23 | XMS_ITS | Encounter Summary ---
Author Organization [facility] [place] [address] Care Team Providers Care Bindery Manager Name Role Phone Victor M Lafleur MD Primary Care Provider [phone] Encounter Details Date Type Department Care Team (Late st Contact Info) Description 09/26/2023 Abstract Cardiology at [address] [address] Karen Billy, RN Nonrheumatic aortic [...] PM EST Office Visit Cardiology at [address] [address] Sheila Johnson APRN [address] [place] [address], [facility] CARDIOLOGY [place], [place] [phone] documented as of this encounter Visit Diagnoses Diagnosis Nonrheumatic aortic valve stenosis Aortic valve disorders Nevus of face Benign neoplasm of skin of other and unspecified parts of face documented in this encounter Care Teams Bindery Manager Relationship Specialty Start Date End Date Victor M Lafleur MD PCP - General 10/02/13 10/20/23 documented as of this encounter
--- OUTSIDE RECORDS SUMMARY | 2024-11-10 10:23 | XMS_ITS | Encounter Summary ---
Author Organization [facility] Ivana [facility] [address] Care Team Providers Care In Store Representative Name Role Phone Vanessa Christian Lane DOTSON Primary Care Provider [phone] Encounter Details Date Type Department Care Team (Latest Contact Info) Description 01/09/2024 3:00 PM EDT Laboratory [place] [phone] Nonrheumatic aortic valve stenosis Social History Tobacco Use Types Packs/Day Years Used Date Smoking Tobacco: Former Cigarettes Smokeless Tobacco: Never Comments:Quit 15 + years ago Alcohol Use Standard Drinks/Week Comments Yes 0 (1 standard drink = 0.6 oz pur e alcohol) rare [facility] Inpatient Questions Answer Date Recorded Prevent Contact [...] 3:00 PM EST Office Visit Cardiology at [place] [address] [place] [phone] Sheila Johnson APRN 580 [facility] [place] [address] documented as of this encounter Procedures Procedure Name Priority Date/Time Associated Diagnosis Comments ABORH RECHECK STATUS Routine 01/09/2024 2:58 PM EDT HEMOGRAM Routine 01/09/2024 2:58 PM EDT Nonrheumatic aortic valve stenosis DIFFERENTIAL, AUTOMATED Routine 01/09/2024 2:58 PM EDT Nonrheumatic aortic valve stenosis TYPE AND SCREEN, SDP (FUTURE SURGERY, [facility] SAME DAY PROGRAM ONLY) [...] PM EDT) ABORH Recheck Order Order Placed [facility] ABORH Type Recheck Completed [facility] Blood 01/09/2024 2:58 PM EDT 01/09/2024 3:08 PM EDT Narrative Resulting Agency Comment Spec In Lab Zak Farmer MD BLOOD BANK LAB [place] ALEMAN [facility] [place] [address] * Differential, Automated (01/09/2024 2:58 PM EDT) Neutrophil % 70.5 % [facility] Neutrophil Absolute 4.34 1.70 - 6.10 x10(3)/[facility] LABORATORY Lymph % 18.9 % [facility] Lymphocytes Abs 1.2 0.9 - 3.2 x10(3)/[facility] LABORATORY Monocyte % 8.0 % [facility] Monocyte Abs 0.5 0.3 - 0.9 x10(3)/[facility] LABORATORY Eos % 1.6 % [facility] Eosinophils Abs 0.1 0.0 - 0.4 x10(3)/[facility] LABORATORY Basophil % 0.5 % [facility] Baso Absolute 0.0 0.0 - 0.1 x10(3)/[facility] LABORATORY Immature Gran % 0.50 % [facility] Comment: Immature granulocytes(IG's)percentage and absolute count will include metamyelocytes, myelocytes, and promyelocytes. Blood smears from CBCs yielding IG's will be scanned manually for concordance. If this scan disagrees with the automated IG or if promyelocytes are noted, a manual differential will be performed. Immature Gran Absolute 0.03 0.00 - 0.04 x10(3)/[facility] LABORATORY Blood 01/09/2024 2:58 PM EDT 01/09/2024 3:03 PM EDT Narrative Resulting Agency Comment Spec In Lab Zak Farmer MD HEMATOLOGY ORDERABL ES [facility] [place] [address] * Hemogram (01/09/2024 2:58 PM EDT) White Blood Cell 6.2 4.0 - 9.5 x10(3)/[facility] LABORATORY Red Blood Cell 5.53 4.58 - 5.54 x10(6)/[facility]ATORY Hemoglobin 16.1 13.7 - 16.5 g/dL [facility] Hematocrit 46.9 40.5 - 48.5 % [facility] Mean Cell Volume 84.8 82.9 - 93.1 fL [facility] Mean Cell Hemoglobin 29.1 27.5 - 32.1 pg [facility] Mean Cell Hemoglobin Concentration 34.3 32.0 - 35.7 g/dL [facility] Platelet 187 145 - 357 x10(3)/[facility] LABORATORY RDW Standard Deviation 39.2 36.0 - 45.0 [facility] LABORATORY RDW coefficient of variation 12.6 11.4 - 13.8 % [facility] Mean Platelet Volume 9.5 7.6 - 12.9 [facility] LABORATORY NRBC% auto 0.0 % [facility] NRBC Absolute 0.000 0.000 - 0.000 x10(3)/[facility]AT[facility] Blood 01/09/2024 2:58 PM EDT 01/09/2024 3:03 PM EDT Narrative Resulting Agency Comment Spec In Lab Zak Farmer MD HEMATOLOGY ORDERABL ES [facility] [place] [address] * Basic Metabolic Panel (non-fasting) (01/09/2024 2:58 PM EDT) Glucose 102 65 - 199 mg/dL [facility] Comment:Diabetes: >=200 mg/d L plus symptoms Blood Urea Nitrogen 15 10 - 20 mg/dL [facility] Creatinine 0.94 0.80 - 1.50 mg/dL [facility] Sodium 137 135 - 145 mmol/L [facility] Potassium 4.5 3.5 - 5.0 mmol/L [facility] Comment: Please note: ??Patients with WBC >100,000 may have falsely elevated Potassium levels. ??For accurate Potassium quantification in these patients send serum separator tube (gold top) for subsequent determinations. ??Contact the Clinical Chemistry Laboratory if there are any questions. Chloride 103 98 - 107 mmol/L [facility] Carbon Dioxide 27 22 - 31 mmol/L [facility] Anion Gap 7 5 - 15 mmol/L [facility] Calcium 9.5 8.5 - 10.5 mg/dL [facility] Est Glomerular Filtration Rate 91 >=60 mL/min/1. 73 m?? [facility] [...] Lab Zak Farmer MD CHEMISTRY ORDERABLE S [facility] [place] [address] * Hepatic Function Panel (01/09/2024 2:58 PM EDT) Protein, Total 6.7 6.1 - 8.0 g/dL [facility] Albumin 4.5 3.2 - 5.2 g/dL [facility] Aspartate Aminotransferase 21 0 - 39 unit/L [facility] Alanine Aminotransferase 21 0 - 55 unit/L [facility] Alkaline Phosphatase 81 40 - 130 unit/L [facility] Bilirubin, Total 0.7 0.2 - 1.3 mg/dL [facility] Bilirubin, Direct 0.2 0.0 - 0.3 mg/dL [facility] Blood 01/09/2024 2:58 PM EDT 01/09/2024 3:03 PM EDT Narrative Resulting Agency Comment Spec In Lab Zak Farmer MD CHEMISTRY ORDERABLE S Performing Organization Address [facility] Co de Phone Number [facility] [place] [address] * Prothrombin Time (01/09/2024 2:58 PM EDT) Prothrombin Time 10.6 9.4 - 12.5 sec [facility] International Normalization Ratio 0.9 [facility] Comment: An INR <2.0 [...] ORDERABL ES Performing Organization Address [facility] Co de Phone Number [facility] [place] [address] * Type and Screen Future Surgery, [facility] SAME DAY PROGRAM ONLY) (01/09/2024 2:58 PM EDT) Pathologist [facility] ABORH Type O NEGATIVE [facility] Patient BB History Not Found [facility] Expires at [id number] on: 02-20-2024 [facility] Ab Screen Interp Negative [facility] Blood 01/09/2024 2:58 PM EDT 01/09/2024 2:58 PM EDT Narrative Resulting Agency Comment Spec In Lab Zak Farmer MD BLOOD BANK LAB ORDE [facility] [place] [id number] documented in this encounter Visit Diagnoses Diagnosis Nonrheumatic aortic valve stenosis Aortic valve disorders documented in this encounter Care Teams In Store Representative Relationship Specialty Start Date End Date Vanessa Christian APRN PCP - General Family Medicine 10/21/23 05/26/24 documented as of this encounter
--- OUTSIDE RECORDS SUMMARY | 2024-11-10 10:23 | XMS_ITS | Encounter Summary ---
Author Organization [facility] Address [facility] [place] [address] Care Team Providers Care Chlorobutadiene Scrubber Operator Name Role Phone Vanessa Christian ASSORTER Primary Care Provider [phone] Reason for Referral * Diagnostic Test (Routine) - Closed Specialty Diagnoses / Procedures Referred By Contac t Referred To Contact Radiology Diagnoses Nonrheumatic aortic valve stenosis Procedures CT Chest wo Contrast (Generic) Louisa Reid PA [facility] [place] [address] [facility] [place] [address] Referral ID Status Reason Start Date Expiration Date V isits Requested Visits Authorized [id number] Closed Specialty Service Requested 01/10/2024 07/11/2025 1 1 Encounter Details Date Type Department Care Team (Late st Contact Info) Description 01/09/2024 Orders [place] [address] Zak Farmer MD [facility] [place] [address] Nonrheumatic aortic valve stenosis Social History Tobacco [...] PM EST Office Visit Cardiology at [address] [address] Sheila Johnson APRN [address] [facility] [place] [address] documented as of this encounter Results * CT Chest wo Contrast (Generic) (02/03/2024 7:44 AM EDT) [employer] Signature WORKSTATION ID [id number] RAD Anatomical Region Laterality Modality Chest Computed [...] nodule along the minor fissure (series 302 [id number]) and a 8 mm right lower lobe [...] technician instructor that requested your imaging first. Zak Farmer MD IMG CT ORDERABLES documented in this encounter Visit Diagnoses Diagnosis Nonrheumatic aortic valve stenosis Aortic valve disorders Nonrheumatic aortic valve stenosis Aortic valve disorders documented in this encounter Care Teams Chlorobutadiene Scrubber Operator Relationship Specialty Start Date End Date Vanessa Christian APRN PCP - General Family Medicine 10/21/23 05/26/24 documented as of this encounter
--- OUTSIDE RECORDS SUMMARY | 2024-11-10 10:23 | XMS_ITS | Encounter Summary ---
Author Organization [facility] [place] [address] Care Team Providers Care Gas Mask Assembler Name Role Phone Vanessa Christian APRN Primary Care Provider [phone] Encounter Details Date Type Department Care Team [...] PM EST Office Visit Cardiology at [address] [place] [address] Sheila Johnson APRN 580 [facility] [place] [address] documented as of this encounter Visit Diagnoses Not on filedocumented in this encounter Care Teams Gas Mask Assembler Relationship Specialty Start Date End Date Vanessa Christian APRN PCP - General Family Medicine 10/21/23 05/26/24 documented as of this encounter
--- OUTSIDE RECORDS SUMMARY | 2024-11-10 10:23 | XMS_ITS | Encounter Summary ---
Author Organization [facility] [place] [address] Care Team Providers Care Data Management Name Role Phone Vanessa Chrsitian MAURI Primary Care Provider [phone] Reason for Visit * Auth/Cert (Routine) Specialty [...] Dickinson MD [facility] [place] [place] [address] [facility] Referral ID Status Reason Start Date Expiration Date Visits Re quested Visits Authorized [id number] 1 1 Encounter Details Date Type Department Care Team (Latest Contact Info) Description 02/03/2024 8:06 AM EDT - 02/03/2024 2:54 PM EDT Hospital Encounter [employer] [place] [address] Rima Dickinson MD [facility] [place] [place] [address] Screening for cardiovascular condition; Aortic valve stenosis, [...] lbs Follow-up Visits Follow up with your vending machine technician in 2-4 weeks Access Site 'Black and Blue' and tenderness is expected during the first week Call if you noted a mass (lump) greater than the size of a ellis Call Office with any Questions and if you have any of the following Clarence Lane M.D Interventional Linseed Oil Order Filler Choke Setter #: [phone] * Attachments The following attachments cannot be sent through Care Everywhere. * CAD (Coronary Artery Disease): General Info (Nepali) * Coronary Angiogram: Post-op (Nepali) documented in this encounter Medications at Time [...] Lane MD - 02/03/2024 11:48 AM EDT [facility] Interventional Cardiology Adult Pre-Procedure H&P Update: Cardiac Catheterization Karlos Anthony [id number] 1960 Chief Complaint: Aortic stenosis HPI: Mr. [...] is inthe chart Clarence Lane MD Interventional Linseed Oil Order Filler 02/03/24 11:48 AM documented in this encounter Miscellaneous Notes * Brief Op Note - Clarence Lane MD - 02/03/2024 12:51 PM EDT Preliminary Cardiac Catheterization Procedure Note: Patient Name: Karlos Anthony : [id number] MR#: [id number] Case Date: 02/03/2024 Choke Setter: Surgeon(s) and Role: * Saira Lua MD [...] 3:00 PM EST Office Visit Cardiology at [place] [address] [place] [phone] Sheila Johnson APRN [address] [facility] [place] [address] Scheduled Orders Name Type Priority Associated Diagnoses [...] ? Procedure Date: 02/03/2024 ? A #: [id number] ? Primary Physician: Mogadam, Emad ? Case #: [id number] ? File Name: [id number] ? Catheterization Order Number: [id number] ? [facility] ? Final Report [place], [place] ? Patient Name: ? Karlos Patenaude ? ID#: ?[id number] ? : ?1960 ? Procedure Date: ? [...] Karlos Anthony Procedure Date: 02/03/2024 A #: [id number] Primary Physician: Saira Lua Case #: [id number] File Name: [id number] Catheterization Order Number: [id number] [facility] FinalReport [place], [place] Patient Name: Karlos Anthony ID#:[id number] :1960 Procedure Date: February 03, 2024 Case [...] documented in this encounter Care Teams Data Management Relationship Specialty Start Date End Date Vanessa Christian APRN PCP - General Family Medicine 10/21/23 05/26/24 documented as of this encounter
[2024-11-10 10:25] VITALS: BP 133/63; PULSE 55
--- OUTSIDE RECORDS SUMMARY | 2024-11-12 09:53 | XMS_ITS | Encounter Summary ---
Author Organization [facility] Address [address] [place] [address] Care Team Providers Care Assistant Front Office Manager Name Role Phone Filidayna Vanessa Dayna MONCADA Primary Care Provider [phone] Encounter Details Date Type Department Care Team (Late st Contact Info) Description 10/24/2023 Lab Requisition [facility] Pathology & Laboratory Medicine - [address] [address] Oscar Nichole MD [address] [place] [address] [id number] Factitial dermatitis Social History Tobacco Use Types [...] management options, if applicable. 10/28/2023 11:24 EST [facility] Final Diagnosis A. SKIN OF BAPTISM, LEFT, SHAVE BIOPSY: - Seborrheic keratosis, pigmented. 10/28/2023 11:24 EST [facility] Attestation By the [...] patient identification (initials P, A) and left rastafari is a shave biopsy of an irregular [...] [facility] Performing Lab [facility] 10/28/2023 11:24 [facility] Scanned Images 10/28/2023 11:24 [facility] Tissue SPECIMEN FROM SKIN / Unknown 10/24/2023 14:30 EST 10/24/2023 22:04 EST us Oscar Nichole MD PATHOLOGY ORDERABLES Final Resul t [facility] [address] [place] [address] documented in this encounter Visit Diagnoses Diagnosis Factitial dermatitis Dermatitis factitia (artefacta) documented in this encounter Care Teams Assistant Front Office Manager Relationship Specialty Start Date End Date Vanessa Christian NP [address] [place] [address] PCP - General Family Medicine - Primary Care 10/07/23 documented as of this encounter
--- OUTSIDE RECORDS SUMMARY | 2024-11-12 09:53 | XMS_ITS | Clinical Summary ---
Author Organization [facility] Address [address] [place] [address] Care Team Providers Care Real Time Trader Name Role Phone Filidayna Vanessa Sherman NP Primary Care Provider [phone] Social History Tobacco Use Types Packs/Day Years [...] 75+ series) 2034 Insurance [employer] Care Teams Real Time Trader Relationship Specialty Start Date End Date Vanessa Christian, ANTWAN [address] [place] [phone] PCP - General Family Medicine - Primary Care 10/07/23
--- OUTSIDE RECORDS SUMMARY | 2024-11-12 09:53 | XMS_ITS | Referral Summary ---
Author Organization [facility] Address [address] [place] [address] Care Team Providers Care Highway Commissioner Name Role Phone Vanessa Christian Lane MONCADA Primary Care Provider [phone] Social History Tobacco Use Types Packs/Day Years Used Date Smoking Tobacco: Never Assessed Sex and Gender Information Value Date Recorded Sex Assigned at Not on file Legal Sex Male 22:02 EST Gender Identity Not on file Sexual Orientation Not on file Plan of Treatment Not on file Insurance R Care Teams Highway Commissioner Relationship Specialty Start Date End Date Vanessa Christian, ANTWAN [address] [place] [phone] PCP - General Family Medicine - Primary Care 10/07/23
--- OUTSIDE RECORDS SUMMARY | 2024-11-12 09:54 | XMS_ITS | Encounter Summary ---
Author Organization [facility] Address [facility] [place] [address] Care Team Providers Care Unhairing Inspector Name Role Phone Vanessa Christian Lane DOTSON Primary Care Provider [phone] Reason for Visit * Reason Comments Coronary Artery Disease Aortic Stenosis Encounter Details Date Type Department Care Team (Latest Contact Info) Description 05/27/2024 11:00 AM EDT Office Visit Cardiology at [address] [phone] Neftali Ernandez MD [facility] [address] ASCVD (arteriosclerotic cardiovascular disease); Nonrheumatic aortic valve stenosis Social History Tobacco Use Types Packs/Day Years Used Date Smoking Tobacco: Former Cigarettes Smokeless Tobacco: Never Comments:Quit 15 + years ago Alcohol Use Standard Drinks/Week Comments Yes 0 (1 standard drink = 0.6 oz pur e alcohol) rare [facility] Utilities Answer Date Recorded In the past 12 months has e [employer],, gas, oil, or water [employer] threatened to shut off services in your [...] PM EST Office Visit Cardiology at [address] [phone] Sheila Johnson APRN [address] [facility] [place] [address] documented as of this encounter Visit Diagnoses Diagnosis ASCVD (arteriosclerotic cardiovascular disease) Unspecified cardiovascular disease Nonrheumatic aortic valve stenosis Aortic valve disorders documented in this encounter Care Teams Unhairing Inspector Relationship Specialty Start Date End Date Vanessa Christian APRN [address] [place] [address] PCP - General Family Medicine 05/27/24 documented as of this encounter
--- OUTSIDE RECORDS SUMMARY | 2024-11-12 09:54 | XMS_ITS | Encounter Summary ---
Author Organization [facility] Address [facility] [place] [address] Care Team Providers Care Liquid Floor And Wall Applier Name Role Phone Vanessa Christian MAURI Primary Care Provider [phone] Encounter Details Date Type Department Care Team [...] PM EST Office Visit Cardiology at [address] [phone] Sheila Johnson APRN [address] [place] [address], [facility] [place] [address] documented as of this encounter Visit Diagnoses Not on filedocumented in this encounter Care Teams Liquid Floor And Wall Applier Relationship Specialty Start Date End Date Vanessa Christian APRN PCP - General Family Medicine 10/21/23 05/26/24 documented as of this encounter
--- OUTSIDE RECORDS SUMMARY | 2024-11-12 09:54 | XMS_ITS | Encounter Summary ---
Author Organization [facility] Address [facility] [place] [address] Care Team Providers Care Birdcage Assembler Name Role Phone Vanessa Christian MAURI Primary Care Provider [phone] Encounter Details Date Type Department Care Team (Latest Contact Info) Description 05/20/2024 Travel Social History Tobacco Use Types Packs/Day Years Used Date Smoking Tobacco: Former Cigarettes Smokeless Tobacco: Never Comments:Quit 15 + years ago Alcohol Use Standard Drinks/Week Comments Yes 0 (1 standard drink = 0.6 oz pur e alcohol) rare [facility] Utilities Answer Date Recorded In the [...] PM EST Office Visit Cardiology at [address] [phone] Sheila Johnson APRN [address] [place] [address], [facility] [place] [address] documented as of this encounter Visit Diagnoses Not on filedocumented in this encounter Care Teams Birdcage Assembler Relationship Specialty Start Date End Date Vanessa Christian APRN PCP - General Family Medicine 10/21/23 05/26/24 documented as of this encounter
--- OUTSIDE RECORDS SUMMARY | 2024-11-12 09:54 | XMS_ITS | Encounter Summary ---
Author Organization [facility] Address [facility] [place] [address] Care Team Providers Care Mill Stenciler Name Role Phone Vanessa Christian MAURI Primary Care Provider [phone] Encounter Details Date Type Department Care Team (Latest Contact Info) Description 03/12/2024 1:30 PM EDT - 03/12/2024 11:59 PM EDT Hospital Encounter XRay at [address] [place] [address] Coronary artery disease, unspecified vessel or lesion type, unspecified whether angina present, unspecified whether seminole or transplanted heart Discharge Disposition: Home Social History Tobacco Use Types Packs/Day Years Used Date Smoking Tobacco: Former Cigarettes Smokeless Tobacco: Never Comments:Quit 15 + years ago Alcohol Use Standard Drinks/Week Comments Yes 0 (1 standard drink = 0.6 oz pur e alcohol) rare [facility] Utilities Answer Date Recorded In the past 12 months has e [employer], gas, oil, or water [employer] threatened to shut off services in your [...] 3:00 PM EST Office Visit Cardiology at [place] [address] [place] [address] Sheila Johnson, MAURI [address] [facility] [place] [place] [address] documented as of this encounter Procedures Procedure Name Priority Date/Time Associated Diagnosis Comments XR CHEST PA AND LATERAL Routine 03/12/2024 1:42 PM EDT Coronary artery disease, unspecified vessel or lesion type, unspecified whether angina present, unspecified whether seminole or transplanted heart documented in this encounter Results * XR Chest PA & Lateral (Generic) (03/12/2024 1:42 PM EDT) Pathologist [place] WORKSTATION ID [id number] RAD Anatomical Region Laterality Modality Chest N/A [...] eval effusions I25.10, Atherosclerotic heart disease of seminole coronary artery without angina pectoris TECHNIQUE: PA [...] eval effusions I25.10, Atherosclerotic heart disease of seminole coronary artery withoutangina pectoris TECHNIQUE: PA and [...] type, unspecified whether angina present, unspecified whether seminole or transplanted heart documented in this encounter Care Teams Mill Stenciler Relationship Specialty Start Date End Date Vanessa Christian APRN PCP - General Family Medicine 10/21/23 05/26/24 documented as of this encounter
--- OUTSIDE RECORDS SUMMARY | 2024-11-12 09:54 | XMS_ITS | Encounter Summary ---
[place] [address] Care Team Providers Care Wine And Spirits Clerk Name Role Phone Aparna Jordan MAURI Primary Care Provider [phone] Reason for Referral * Diagnostic Test (Routine) - New Request Specialty Diagnoses / Procedures Referred By Contac t Referred To Contact Cardiology Diagnoses S/P AVR Procedures Echocardiogram Transthoracic Neftali Menon PA [facility] [place] [address] [facility] [place] [address] Referral ID Status Reason Start Date Expiration Date Visits Requested Visits Authorized [id number] New Request Specialty Service Requested 02/24/2024 02/23/2025 1 1 * Consultation (Routine) - Closed Specialty Diagnoses / Procedures Referred By Contac t Referred To Contact Cardiology Diagnoses S/P AVR Hayder Graham MD [facility] [place] [address] Cardiac Rehab, [facility] [address] [place] [address] [place] [address] Referral ID Status Reason Start Date Expiration Date V isits Requested Visits Authorized [id number] Closed Consult, Test & Treat 02/24/2024 08/22/2024 36 36 * Home Health Care (Routine) - Closed Specialty Diagnoses / Procedures Referred By Sixto mendoza Referred To Contact Diagnoses S/P AVR Hayder Graham MD [facility] [place] [address] Referral ID Status Reason Start Date Expiration Date V isits Requested Visits Authorized [id number] Closed Consult, Test & Treat 02/24/2024 08/22/2024 [...] ARTERIAL GRAFT (WRVU 7.93) Hayder Graham MD [facility] [place] [address] [facility] Referral ID Status Reason Start Date Expiration Date Visits Re quested Visits Authorized [id number] 1 1 Encounter Details Date Type Department Care Team (Latest Contact Info) Description 02/17/2024 5:43 AM EDT - 02/24/2024 11:23 AM EDT Hospital Encounter Heart and Vascular Unit Level 4 [place] [address] [facility] [place] [address] S/P AVR (Primary Dx); Aortic valve stenosis, [...] Patient Age: 63 y.o. Birthdate: 1960 Language: Vietnamese Race: White Ethnicity: Not nor Admit Date: 02/17/2024 Discharge Date: 02/24/24 Attending Physician: Hayder Graham MD Follow-up Recommendations for Providers: Please continue routine management of cardiovascular risk factors including blood pressure, lipids,glucose, etc. Please note any changes to medications. Patient to follow up with PCP, Aparna Jordan APRN, in 1-2 weeks. Patient to follow up with Wholesale Account Manager, Neftali Ernandez MD , in 2 weeks. Patient to follow up with Cardiac Surgeon, Dr. Hayder Graham, with a chest x-ray, EKG, and Echo. Inpatient Provider Contact Information: [facility] Section of Cardiac Surgery [facility] [place] [address] FAX [phone] Discharge Diagnoses (Hospital Problems) Primary Diagnoses: /CAD [...] 33.75) performed by Hayder Graham MD at [facility] MAIN OR PRO CABG, ARTERY-VEIN, TWO N/A 02/17/2024 @CABG, TWO VENOUS GRAFTS & ARTERIAL GRAFT (WRVU 7.93) performed by Hayder Graham MD at [facility] MAIN OR PRO ENDOSCOPY W/VIDEO-ASST VEIN HARVEST, CABG Left 02/17/2024 ENDOSCOPIC HARVEST VEIN(S) FOR CABG (WRVU 0.31) performed by Hayder Graham MD at [facility] MAIN OR PRO REPLACEMENT PROSTHETIC AORTIC VALVE OPEN W CARDIOPULMONARY BYPASS HOMOGRF/STENT N/A 02/17/2024 @REPLACE AORTIC VALVE, OPEN, W\CPB, W\PROSTHETIC VALVE (WRVU 41.32) performed by Hayder Graham MD at [facility] MAIN OR Prior To Admission [...] insufficiency. He has glaucoma. He used to [employer] until about 15 years ago. He has undergone prior herniorrhaphy. 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 Major Procedures/Operations: 02/17/24 s/p avr/cabgx3 CABG x 3 JOSE->LAD SVG->dRCA SVG->OM1 EVH from LLE AVR with a 23 mm Inspiris Bioprosthesis Hospital Course: Karlos Garcia was admitted to [facility] on 02/17/2024 via the Same Day Program. [...] Hayder Graham and/or the Cardiac Surgery Physician Sail Repairer Team may be reached at . [...] Dr. Hayder Graham. You may use a Pluckemin Track or treadmill but avoid any pulling [...] while being managed by your PCP and/or Wholesale Account Manager. For future medication refills, please refer to your PCP and/or Wholesale Account Manager after your discharge from our service. Thank you REMOVE CHEST TUBE SUTURES ON OR AFTER 03/02/24 Home oxygen therapy: N/A Follow up appointments: You should follow up with your PCP, Aparna Jordan APRN, in 1-2 weeks. Our office will schedule an appointment with your Wholesale Account Manager, Neftali Ernandez MD , in 2 [...] Future Orders Complete By Expires Echocardiogram Transthoracic [53850 CPT(R)] 03/26/2024 09/25/2024 Process Instructions: Scheduling Instructions: Questions: Where will study be performed?: [facility] Does the patient have Congenital Heart Disease?: Does patient require sedation?: Sedation rationale: XR Chest PA & Lateral (Generic) [02709 27554 Custom] 03/26/2024 09/25/2024 Process Instructions: Scheduling Instructions: Questions: Portable exam?: Reason for exam and clinical history: s/p avr/cabg Clinical information / jerome questions for radiologist: Stat read required?: Date of injury if applicable: Requested Time: Where will study be performed?: [facility] Radiology Referral to Cardiac Rehab [VKF083 Custom] As directed Process Instructions: If no [...] to Home Health. [address] Phone Number: Date of : 1960 Inpatient DOCUMENTATION FOR VNA SERVICES (INCLUDING THOSE PATIENTS WITH MEDICARE COVERAGE REQUIRING HOME VNA SERVICES AND/OR HOSPICE SERVICES) PATIENT'S LOCATION: Karlos Garcia [address] [place] Self Representation Document Preparation [phone] Cinder Crane Operator's Name: self/family In discussion with the attending physician, it is certified that this patient is under their care and that they, or a Nurse Practitioner, or Physician Sail Repairer who is working directly with them, [...] for services as follows: HOME HEALTH AGENCY: [facility]. [address] [place] [address] RN orders: Cardiopulmonary assessment, incisional assessment, assess [...] issues please call the Cardiology Office at [phone] FOR MEDICARE ONLY: (please delete this section [...] above. Signed: NEFTALI MENON PA-C [facility] Section of Cardiac Surgery [facility] [place] [address] FAX [phone] Date: 02/24/2024 CC: Aparna Jordan, MAURI Jordan, Aparna Sherman APRN [address] [place] [address] documented in this encounter Discharge Instructions * [...] Hayder Graham and/or the Cardiac Surgery Physician Sail Repairer Team may be reached at . [...] Dr. Hayder Graham. You may use a Pluckemin Track or treadmill but avoid any pulling [...] while being managed by your PCP and/or Wholesale Account Manager. For future medication refills, please refer to your PCP and/or Wholesale Account Manager after your discharge from our service. Thank you REMOVE CHEST TUBE SUTURES ON OR AFTER 03/02/24 Home oxygen therapy: N/A Follow up appointments: You should follow up with your PCP, Aparna Jordan APRN, in 1-2 weeks. Our office will schedule an appointment with your Wholesale Account Manager, Neftali Ernandez MD , in 2 [...] 0600 and on the weekends please page [phone]. * Eric Barahona PA - 02/23/2024 9:27 [...] 0600 and on the weekends please page [phone]. * Tiffanie Owens PTA - 02/22/2024 2:48 [...] d/c for 10 days. 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 He works Precautions/Special Considerations: STERNAL [...] LRAD and supervision Time IN / OUT: [phone] Total Time: 30 minutes; TEFx2 Tiffanie Owens Pager: [phone] Physical Therapy Inpatient Rehabilitation Department * Romeo [...] 0600 and on the weekends please page [phone]. * Kelley Hinson, ENTEROSTOMAL THERAPY NURSE - 02/21/2024 10:15 AM EDT Physical Therapy [...] d/c for 10 days. 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 He works Precautions/Special Considerations: STERNAL [...] LRAD and supervision Time IN / OUT: [phone] Total Time: 25 minutes; TEF 2 Kelley Hinson ENTEROSTOMAL THERAPY NURSE Pager: [phone] Physical Therapy Inpatient Rehabilitation Department * Louisa [...] on the weekends please page [phone]. * Kelley Hinson PTA - 02/20/2024 3:32 PM EDT 02/20/24 2990 Evaluation & Treatment Document Type contact Total Minutes, Physical Therapy 0 Comment, Session Not Performed Checked in w/ pt this PM for ongoing PT services, pt politely declined, stating he had been dealing w/ nausea all day, made plan to see him tomorrow morning, will f/u at that time Kelley Hinson PTA Pager: [phone] Physical Therapy Inpatient Rehab Department * Louisa [...] 0600 and on the weekends please page [phone]. * Maris Benavides, PT - 02/19/2024 11:22 [...] d/c for 10 days. 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 Precautions/Special Considerations: STERNAL [...] outlined inthis evaluation. MARIS BENAVIDES, PT Pager: [phone] Physical Therapy Inpatient Rehabilitation Department Time IN / OUT: [phone] Total Time: 38 (eval) minutes; * Antonio [...] 0600 and on the weekends please page [phone]. * Minnie Begum PA - 02/18/2024 8:25 [...] 0600 and on the weekends please page [phone]. * Kim Ha RCP - 02/17/2024 2:25 [...] plan since last visit. Hayder Graham MD [phone] Source Note - Hayder Graham MD - [...] insufficiency. He has glaucoma. He used to [employer] until about 15 years ago. He has [...] given written informed consent. Hayder Graham MD [phone] * Hayder Graham MD - 02/17/2024 7:00 [...] given written informed consent. Hayder Graham MD [phone] documented in this encounter Miscellaneous Notes * [...] information for follow-up Home Health & Hospice, [address] [place] [address] Cardiac Rehab, [facility] [address] [place] [place] [address] Transportation: family or friend will provide Functional status prior to admission: Independent Home Environment: Others in the home: alone. Current Living Arrangements: home/apartment/condo. Accessibility Concerns:a few steps to enter 1 floor home. Current Functional Ability: Assistive Person and Equipment DME used at home: none DME Needed at Discharge: N/A Patient is insured through: Primary Insurance: [employer] Payor: [facility] / Plan: [facility] PPO / Product Type: [...] pain managed with scheduled Tylenol. Worked with [employer]. Ambulated in the roque multiple times during [...] anticipated Patient is insured through: Primary Insurance: [employer] Payor: [facility] / Plan: [facility] PPO / Product Type: [...] Services: Physical Therapy, Registered Nurse Agency Referrals: [facility] [address] [address] Transportation: family or friend will provide Barriers to discharge: Discharge planning Plan going forward: Service Care Management will continue to follow and assist with discharge planning and coordination of care as indicated. Anticipated Date of Discharge: 02/22/2024 Rhett Bell RN RN/CM - Cellphone: [phone] Pager: [phone] Covering Service RN/CM * Plan of Care [...] 02/19/2024 10:44 AM EDT [facility] Karlos Garcia was seen today [...] receiving care in [place] must abide by [place] law. The hierarchy [...] The agent with financial power of insurance attorney or a conservator appointed in accordance [...] In the past 12 months has the Tript[employer], gas, oil, or water [employer] threatened to shut off services in your [...] [address] [facility] [address] Physical address: [address] [facility], [address] Social & Family Supports: All names listed [...] FOUNDATION Payor: [facility] / Plan: [facility] PPO / Product Type: *No Product type* / Secondary Insurance: N/A ; Prescription Coverage: Yes Preferred Pharmacy: [id number] AT [facility] & [address] [address] Notrees Status: Patient is a : No Primary Care Provider confirmed: Aparna Jordan, MACHINE HEEL BUILDER [phone] Patient/Caregiver Goals of Treatment: dc to home Potential Needs for Transition of Care: home health care Agency Referrals: I have met with the patient to: discuss discharge planning needs. provide the [facility], Office of Care Management letter from the Natural History Collections Curator pertaining to rehab referrals. provide a letter describing our affiliations within the [facility] and educate about their right to choose where referrals are sent. provide a list of Home Health Agencies / Durable Medical Equipment vendors which serve their preferred geographic area. provided patient with [facility] Star Quality Rating handout. They have requested referrals to: [facility]. [address] [place] [address] Note routed to a Ordnance Mechanic who will communicate referrals to facilities and [...] Reina Greene RN CM, BSN, CMGT- Ext [phone] * Plan of Care - Binta Trinidad [...] Operative Note Patient Name: Karlos Garcia DOB: [id number] MR#: [id number] Case Date: 02/17/2024 Surgeon: Surgeon(s) and Role: * Hayder Graham MD - Primary * Neftali Menon PA - Physician Sail Repairer Preoperative diagnosis: CAD Postoperative diagnosis: CAD, [...] 02/17/2024 8:20 AM EDT [facility] Operative Note Patient Name: Karlos Garcia : [id number] MR#: [id number] Case Date: 02/17/2024 Surgeon: Surgeons and Role: * Hayder Graham MD - Primary * Neftali Menon PA - Physician Sail Repairer Preoperative diagnosis: CAD Postoperative diagnosis: CAD, [...] and Left pleural Disposition: [facility] Procedure Description: The patient was brought [...] 3:00 PM EST Office Visit Cardiology at [place] [address] [place] [id number] Sheila Johnson APRN [address] [facility] [place] [address] Scheduled Orders Name Type Priority Associated Diagnoses [...] Aortic Valve Open W Cardiopulmonary Bypass Homogrf/Stent (08540) Yes 02/17/2024 7:28 AM EDT CAD Cabg, Artery-Vein, Two (03525) Yes 02/17/2024 7:28 AM EDT CAD Cabg, Arterial, Single (25237) Yes 02/17/2024 7:28 AM EDT CAD Endoscopy W/Video-Asst Vein [place], Cabg (33346) Yes 02/17/2024 7:28 AM EDT CAD POCT [...] CHEMISTRY ORDERABLE S [facility] [place] [address] * (ABNORMAL) Basic Metabolic Panel (non-fasting) (02/23/2024 [...] MD CHEMISTRY ORDERABLES [facility] [place] [address] * Potassium (02/22/2024 4:30 AM EDT) Potassium [...] CHEMISTRY ORDERABLE S [facility] [place] [address] * (ABNORMAL) Basic Metabolic Panel (non-fasting) (02/21/2024 [...] Carpio MD CHEMISTRY ORDERABLES Performing Organization Address City/[facility]/ZIP Co de Phone Number [facility] [place] [address] * Lactate, whole blood, send to lab ([facility]) (02/21/2024 9:45 AM EDT) [facility] Lactate WB 2.0 0.5 - 2.2 mmol/L [facility] Blood 02/21/2024 9:45 AM EDT 02/21/2024 9:52 AM EDT Narrative Resulting Agency Comment Spec In Lab Hayder Graham MD CHEMISTRY ORDERABLE S Performing Organization Address City/[facility]/ZIP Co de Phone Number [facility] [place] [address] * (ABNORMAL) Hepatic Function Panel (02/21/2024 9:45 [...] City/[facility]/ZIP Co de Phone Number [facility] [place] [address] * Lipase (02/21/2024 9:45 AM EDT) Lipase 56 0 - 60 unit/L [facility] Blood 02/21/2024 9:45 AM EDT 02/21/2024 9:52 AM EDT Narrative Resulting Agency Comment Spec In Lab Hayder Graham MD CHEMISTRY ORDERABLE S Performing Organization Address [facility] Co de Phone Number [facility] [place] [address] * Amylase (02/21/2024 9:45 AM EDT) Amylase 69 28 - 100 unit/L [facility] Blood 02/21/2024 9:45 AM EDT 02/21/2024 9:52 AM EDT Narrative Resulting Agency Comment Spec In Lab Hayder Graham MD CHEMISTRY ORDERABLE S Performing Organization Address [facility] Co de Phone Number [facility] [place] [address] * Potassium (02/21/2024 3:08 AM EDT) Potassium [...] Hayder Graham MD CHEMISTRY ORDERABLE S [facility] [place] [address] * XR Chest PA & Lateral (Generic) (02/20/2024 10:19 AM EDT) WORKSTATION ID [id number] RAD Anatomical Region Laterality Modality Chest N/A Digital Radiogra phy Impressions 02/20/2024 1:11 PM EDT Small pleural effusions. No pneumothorax Thank you for letting us participate in the care of this patient. ??If you are a health care provider and have any questions regarding this report, please contact the number below. ??For patients who have questions please contact the health childbirth and infant care teacher that requested your imaging first. ? Electronically signed by: Rogerio Cruz MD, [facility] ??([phone]), at 02/20/2024 1:11 PM Narrative 02/20/2024 1:11 PM EDT EXAMINATION: XR CHEST PA AND LATERAL (GENERIC) CLINICAL HISTORY: s/p AVR/CABGx3 TECHNIQUE: PA and lateral views of the chest COMPARISON: 02/17/2024 FINDINGS: Support devices: Interval removal of Macy-Kaila catheter, endotracheal tube and mediastinal chest tubes The cardiac silhouette is stable status post median sternotomy, CABG and aortic valve replacement. There are small pleural effusions. No pneumothorax. Procedure Note Rogerio Cruz MD - 02/20/2024 EXAMINATION: XR CHEST PA AND LATERAL (GENERIC) CLINICAL HISTORY: s/p AVR/CABGx3 TECHNIQUE: PA and lateral views of the chest COMPARISON: 02/17/2024 FINDINGS: Support devices: Interval removal of Macy-Kaila catheter, endotracheal tubeand mediastinal chest tubes The [...] patients who have questions please contactthe health childbirth and infant care teacher that requested your imaging first. Hayder Graham MD IMG DX ORDERABLES * Scan, Peripheral Blood (02/20/2024 4:23 AM EDT) Pathologist [facility] Plat estimate Decreased [facility] RBC Morphology Normal [facility] Blood 02/20/2024 4:23 AM EDT 02/20/2024 4:42 AM EDT Narrative Resulting Agency Comment Spec In Lab Minnie FRENCH HEMATOLOGY CECILIO ALEMAN [facility] [place] [address] * (ABNORMAL) Differential, Automated (02/20/2024 4:23 AM EDT) [facility] Neutrophil % 81.7 % [facility] Neutrophil Absolute 10.37(H) 1.70 - 6.10 x10(3)/mc L [facility] Lymph % 7.4 % [facility] Lymphocytes Abs 0.9 0.9 - 3.2 x10(3)/mc L [facility] Monocyte % 9.7 % [facility] Monocyte Abs 1.2(H) 0.3 - 0.9 x10(3)/mc L [facility] Eos % 0.1 % [facility] Eosinophils Abs 0.0 0.0 - 0.4 x10(3)/[facility] Basophil % 0.2 % [facility] [...] HEMATOLOGY CECILIO ALEMAN [facility] [place] [address] * (ABNORMAL) Hemogram (02/20/2024 4:23 AM EDT) [...] [facility] NRBC% auto 0.0 % [facility] NRBC Absolute 0.000 0.000 - 0.000 x10(3)/mc L [facility] Blood 02/20/2024 4:23 AM EDT 02/20/2024 4:42 AM EDT Narrative Resulting Agency Comment Spec In Lab Minnie FRENCH HEMATOLOGY CECILIO ALEMAN [facility] [place] [address] * (ABNORMAL) Basic Metabolic Panel (non-fasting) (02/20/2024 [...] CHEMISTRY ORDERABLE S Performing Organization Address [facility]/ZIP Co de Phone Number [facility] [place] [address] * Potassium (02/19/2024 3:57 AM EDT) [facility] Signature Potassium 4.3 3.5 - 5.0 mmol/L [facility] [...] City/[facility]/ZIP Co de Phone Number [facility] [place] [address] * POCT Glucose (02/18/2024 8:24 AM EDT) [facility] Glucose, POC 157 65 - 199 mg/dL [facility] Comment: Supplemental ranges: <140 mg/dL before meals <180 mg/dL all other times of the day Blood 02/18/2024 8:24 AM EDT 02/18/2024 8:24 AM EDT Hayder Graham MD POINT OF CARE TEST ORDERABLES Performing Organization Address City/[facility]/ZIP Co de Phone Number [facility] [place] [address] * Scan, Peripheral Blood (02/18/2024 1:40 AM EDT) [facility] Plat estimate Decreased [facility] RBC Morphology Normal [facility] Blood 02/18/2024 1:40 AM EDT 02/18/2024 1:56 AM EDT Narrative Resulting Agency Comment Spec In Lab Neftali FRENCH HEMATOLOGY ORDER OLE Performing Organization Address City/[facility]/ZIP Co de Phone Number [facility] [place] [address] * (ABNORMAL) Differential, Automated (02/18/2024 1:40 AM EDT) [facility] Neutrophil % 87.1 % [facility] Neutrophil Absolute 15.03(H) 1.70 - 6.10 x10(3)/mc L [facility] Lymph % 3.0 % [facility] Lymphocytes Abs 0.5(L) 0.9 - 3.2 x10(3)/mc L [facility] Monocyte % 9.1 % [facility] Monocyte Abs 1.6(H) 0.3 - 0.9 x10(3)/mc L [facility] Eos % 0.0 % [facility] Eosinophils Abs 0.0 0.0 - 0.4 x10(3)/mc L [facility] Basophil % 0.2 % [facility] [...] FRENCH HEMATOLOGY ORDER OLE Performing Organization Address City/State/[facility] Co de Phone Number [facility] [place] [address] * (ABNORMAL) Hemogram (02/18/2024 1:40 AM EDT) [...] [facility] NRBC% auto 0.0 % [facility] NRBC Absolute 0.000 0.000 - 0.000 x10(3)/mc L [facility] Blood 02/18/2024 1:40 AM EDT 02/18/2024 1:56 AM EDT Narrative Resulting Agency Comment Spec In Lab Neftali FRENCH HEMATOLOGY ORDER OLE [facility] [place] [address] * (ABNORMAL) Basic Metabolic Panel (non-fasting) (02/18/2024 [...] CHEMISTRY ORDERABLE S [facility] [place] [address] * (ABNORMAL) Troponin (02/18/2024 1:40 AM EDT) Pathologist [facility] Troponin-T, High Sensitivity 342(H) <=22 ng/L [facility] [...] value can be found in the [facility] Test Catalog Troponin - [facility] Test Catalog Reference: Fourth [place] Definition of Myocardial Infarction. Journal of the [place] [employer] 2018;72:0230-2224 Blood 02/18/2024 1:40 AM EDT 02/18/2024 1:56 AM EDT Narrative Resulting Agency Comment Spec In Lab Hayder Graham MD CHEMISTRY ORDERABLE S Performing Organization Address City/[facility]/ZIP Co de Phone Number [facility] [place] [address] * POCT Glucose (02/17/2024 8:13 PM EDT) Glucose, POC 142 65 - 199 mg/dL [facility] Comment: Supplemental ranges: <140 mg/dL before meals <180 mg/dL all other times of the day Blood 02/17/2024 8:13 PM EDT 02/17/2024 8:13 PM EDT Hayder Graham MD POINT OF CARE TEST ORDERABLES Performing Organization Address [facility]/ZIP Co de Phone Number [facility] [place] [address] * POCT Glucose (02/17/2024 5:42 PM EDT) Glucose, POC 160 65 - 199 mg/dL [facility] Comment: Supplemental ranges: <140 mg/dL before meals <180 mg/dL all other times of the day Blood 02/17/2024 5:42 PM EDT 02/17/2024 5:42 PM EDT Hayder Graham MD POINT OF CARE TEST ORDERABLES Performing Organization Address City/[facility]/ZIP Co de Phone Number [facility] [place] [address] * Hemoglobin (02/17/2024 5:42 PM EDT) Hemoglobin 13.7 13.7 - 16.5 g/dL [facility] Blood 02/17/2024 5:42 PM EDT 02/17/2024 6:10 PM EDT Narrative Resulting Agency Comment Spec In Lab Hayder Graham MD HEMATOLOGY ORDERABL ES Performing Organization Address [facility] Co de Phone Number [facility] [place] [address] * Potassium (02/17/2024 5:42 PM EDT) Potassium [...] CHEMISTRY ORDERABLE S Performing Organization Address [facility] Co de Phone Number [facility] [place] [address] * (ABNORMAL) BLOOD GAS 2 ARTERIAL (02/17/2024 [...] CARE TEST ORDERABLES [facility] [place] [address] * XR Chest One View (02/17/2024 1:44 PM EDT) WORKSTATION ID [id number] RAD Anatomical Region Laterality Modality Chest N/A Digital Radiogra phy Impressions 02/17/2024 2:12 PM EDT 1. ??No definite pleural fluid collection or pneumothorax. 2. ??Right IJ Macy-Kaila catheter tip terminates in a descending branch of the right pulmonary artery. Suggest catheter retraction. 3. ??Additional support lines and tubes as above. Thank you for letting us participate in the care of this patient. ??If you are a health care provider and have any questions regarding this report, please contact the number below. ??For patients who have questions please contact the health childbirth and infant care teacher that requested your imaging first. ? Electronically signed by: Denzel Hankins MD, [facility] ??([phone]), at 02/17/2024 2:12 PM Narrative 02/17/2024 2:12 PM EDT EXAMINATION: XR CHEST ONE VIEW CLINICAL HISTORY: s/p avr/cabg eval effusions TECHNIQUE: 1 view of the chest COMPARISON: Chest x-ray 01/09/2024, chest CT 02/03/2024 FINDINGS: ET tube tip terminates 5.2 cm above the carlos. Right IJ Macy-Kaila catheter tip terminates in a descending branch [...] 5.2 cm above the carlos. Right IJ Macy-Ganzcatheter tip terminates in a descending branch of [...] fluid collection or pneumothorax. 2. Right IJ Macy-Kaila catheter tip terminates in a descending branch ofthe right pulmonary artery. Suggest catheter retraction. 3. Additional support lines and tubes as above. Thank you for letting us participate in the care of this patient. If youare a health care provider and have any questions regarding this report,please contact the number below. For patients who have questions please contactthe health childbirth and infant care teacher that requested your imaging first. Electronically signed by: Denzel Hankins MD, [facility]([phone]), at 02/17/2024 2:12 PM Hayder Graham MD [...] [facility] FIO2 Art 100 % [facility] PF Ratio Art 320 [facility] Blood 02/17/2024 1:31 PM EDT 02/17/2024 1:31 PM EDT Hayder Graham MD POINT OF CARE TEST ORDERABLES [facility] [place] [address] * (ABNORMAL) Coox2 (02/17/2024 1:21 PM EDT) [...] CARE TEST ORDERABLES [facility] [place] [address] * (ABNORMAL) BLOOD GAS 2 ARTERIAL (02/17/2024 [...] CARE TEST ORDERABLES Performing Organization Address [facility] de Phone Number [facility] [place] [address] * (ABNORMAL) Fibrinogen (02/17/2024 12:10 PM EDT) [...] HEMATOLOGY ORDERABLE S Performing Organization Address [facility] Co de Phone Number [facility] [place] [address] * (ABNORMAL) Thrombin time (02/17/2024 12:10 PM [...] MD HEMATOLOGY ORDERABLE S Performing Organization Address [facility] de Phone Number [facility] [place] [address] * APTT (02/17/2024 12:10 PM EDT) Partial [...] MD HEMATOLOGY ORDERABLE S Performing Organization Address [facility] de Phone Number [facility] [place] [address] * (ABNORMAL) Prothrombin Time (02/17/2024 12:10 PM EDT) Prothrombin Time 16.7(H) 9.4 - 12.5 sec [facility] Comment: OR Result called by ?? LOMARL OR Results read back by: ? alodnra pagan at 2024-02-17 12:41:48 International Normalization Ratio [...] HEMATOLOGY ORDERABLE S [facility] [place] [address] * (ABNORMAL) Hemogram (02/17/2024 12:10 PM EDT) [...] [facility] NRBC% auto 0.0 % [facility] NRBC Absolute 0.000 0.000 - 0.000 x10(3)/mc L [facility] Blood 02/17/2024 12:1 0 PM EDT 02/17/2024 12:19 PM EDT Narrative Resulting Agency Comment Spec In Lab Tara York MD HEMATOLOGY ORDERABLE S [facility] [place] [address] * (ABNORMAL) BLOOD GAS 2 ARTERIAL (02/17/2024 [...] [facility] Comment: Noted by instrumentation engineering technician. Please note: Patients with WBC >100,000 [...] CARE TEST ORDERABLES [facility] [place] [address] * (ABNORMAL) BLOOD GAS 2 ARTERIAL (02/17/2024 [...] [facility] Comment: Noted by instrumentation engineering technician. Please note: Patients with WBC >100,000 [...] CARE TEST ORDERABLES Performing Organization Address [facility] Co de Phone Number [facility] [place] [address] * (ABNORMAL) Hemoglobin and Hematocrit, blood (02/17/2024 [...] City/[facility]/ZIP Co de Phone Number [facility] [place] [address] * (ABNORMAL) Platelet count (02/17/2024 11:04 AM EDT) Pathologist [facility] Platelet 106(L) 145 - 357 x10(3)/mc L [facility] Immature Plt % 1.6 0.0 - 7.4 % [facility] Comment: Limitation of the Immature Platelet Fraction (IPF)-May be less reliable when the platelet count is less than 08e192/uL due to statistical imprecision. The IPF value [...] in a decreased state of production. References: [employer] The Clinical Value of the Immature Platelet Fraction (IPF) in Cell Recovery Document Number [id number] 03/2011 [employer] The Role of the Immature Platelet Fraction (IPF) in the Differential Diagnosis of Thrombocytopenia, Document [id number] V002/15/14 P014 Blood 02/17/2024 11:0 4 AM EDT 02/17/2024 11:12 AM EDT Narrative Resulting Agency Comment Spec In Lab Hayder Graham MD HEMATOLOGY ORDERABL ES Performing Organization Address City/[facility]/ZIP Co de Phone Number [facility] [place] [address] * (ABNORMAL) Fibrinogen (02/17/2024 11:04 AM EDT) [facility] Fibrinogen 149(L) 200 - 393 mg/dL [facility] [...] HEMATOLOGY ORDERABL ES [facility] [place] [address] * (ABNORMAL) BLOOD GAS 2 ARTERIAL (02/17/2024 [...] City/State/[facility] Co de Phone Number [facility] [place] [address] * (ABNORMAL) BLOOD GAS 2 ARTERIAL (02/17/2024 [...] CARE TEST ORDERABLES [facility] [place] [address] * Surgical Pathology Report (02/17/2024 10:01 AM EDT) Final Diagnosis [id number] ? Location: [facility]; [address] [place] [address] The signing pathologist has (i) examined the relevant preparation(s) for the specimen(s) and (ii) rendered or confirmed the diagnosis(es). . ?Surgical Pathology DIAGNOSIS Aortic valve leaflets, excision: Valve leaflets with myxoid degeneration, nodular fibrosis and dystrophic calcifications. Electronically signed by: ?Livier Montoya MD Verified: ??02/24/2024 13:49 ??Pathologist Performed at: ??-[facility]. [place]ology, [place] [address] Natural History Collections Curator: Job Brewer MD, FCAP, ??CLIA Certificate: [id number] SPECIMEN(S) SUBMITTED A - Aortic Valve Leaflets, [...] Sections Processing Blocks submitted for decalcification: A1. Citrus Peeler sections in 1 cassette labeled A1. ??ajw 02/24/2024 1:49 PM EDT [facility] AORTIC STRUCTURE / Unknown 02/17/2024 10:01 AM EDT 02/17/2024 10:01 AM EDT Hayder Graham MD PATHOLOGY/CYTOLOGY ORDERABLES [facility] [place] [address] * Specimen to Pathology (02/17/2024 10:01 AM EDT) AP Specimen 02/17/2024 10:0 1 AM EDT 02/17/2024 10:01 AM EDT Narrative [facility] - 02/17/2024 10:01 AM EDT Specimen requisition ordered. ??Separate Pathology report to follow Hayder Graham MD PATHOLOGY/CYTOLOGY ORDERABLES [facility] [place] [address] * (ABNORMAL) BLOOD GAS 2 ARTERIAL (02/17/2024 [...] CARE TEST ORDERABLES [facility] [place] [address] * (ABNORMAL) BLOOD GAS 2 VENOUS (02/17/2024 9:34 AM EDT) pH, Venous 7.22(Criti marquez) 7.32 - 7.42 [facility] Comment:Noted by instrumentation engineering technician. PCO2, Venous 43 41 - 51 mmHg [facility] Comment:Noted by instrumentation engineering technician. PO2, Venous 57(H) 25 - 40 mmHg [facility] Comment:Noted by instrumentation engineering technician. Bicarbonate, Venous 17.1 mmol/L [facility] Comment:Noted by instrumentation engineering technician. Base Excess, Venous -10.6 mmol/L [facility] Comment:Noted by instrumentation engineering technician. Hgb Blood Gas 11.2(L) 13.7 - 16.5 g/dL [facility] Comment:Noted by instrumentation engineering technician. Oxyhemoglobin, Venous 86.5 % [facility] Comment:Noted by instrumentation engineering technician. Carboxyhemoglob in, Venous 0.3 % [facility] Comment: Noted by instrumentation engineering technician. Nonsmokers: 0.5-1.5% COHB Smokers: Variable, but usually less than 10% Toxic: 20-30% COHB Lethal: Greater than 60% COHB Methemoglobin, Venous 0.0 <=1.5 % [facility] Comment:Noted by instrumentation engineering technician. Na Whole Blood 156(H) 135 - 145 mmol/L [facility] Comment:Noted by instrumentation engineering technician. K Whole Blood 5.5(H) 3.5 - 5.0 mmol/L [facility] Comment: Noted by instrumentation engineering technician. Please note: Patients with WBC >100,000 may have falsely elevated Potassium levels. Contact the Clinical Chemistry Laboratory if there are any questions. ICa Whole Blood 1.03(L) 1.15 - 1.33 mmol/L [facility] Comment: Noted by instrumentation engineering technician. Note: ??Total bilirubin higher than 20 mg/dL may lead to falsely low ionized calcium. CL Whole Blood 100 98 - 107 mmol/L [facility] Comment:Noted by instrumentation engineering technician. Gluc Whole Bld 132 65 - 199 mg/dL [facility] Comment: Noted by instrumentation engineering technician. Diabetes: >=200 mg/dL plus symptoms Lactate WB 1.0 0.5 - 2.2 mmol/L [facility] Comment:Noted by instrumentation engineering technician. Blood Gas Source Venous [facility] Blood 02/17/2024 9:34 AM EDT 02/17/2024 9:34 AM EDT Hayder Graham MD POINT OF CARE TEST ORDERABLES [facility] [place] [address] * (ABNORMAL) BLOOD GAS 2 ARTERIAL (02/17/2024 [...] CARE TEST ORDERABLES Performing Organization Address [facility] de Phone Number [facility] [place] [address] * POCT Glucose (02/17/2024 6:38 AM EDT) Glucose, POC 98 65 - 199 mg/dL [facility] Comment: Supplemental ranges: <140 mg/dL before meals <180 mg/dL all other times of the day Blood 02/17/2024 6:38 AM EDT 02/17/2024 6:38 AM EDT Hayder Graham MD POINT OF CARE TEST ORDERABLES Performing Organization Address [facility] de Phone Number [facility] [place] [address] * Transesophageal Echo/OR (02/17/2024 6:33 AM EDT) [...] complete [facility]-operative [facility] of cardiac [...] 6 hours upon arrival to Unit. Give NE if unable to take PO, Routine Given [...] dose on Sat02/17/24 at 1400, Until Discontinued, [place] teeth and / or gums. Scan the CHG vial in the [employer] Q-Care Oral Care Kit from floor stock. Ventilator-associated pneumonia prophylaxis For use in ICU/Critical care locations ONLY. Obtain kit from Floor Stock location. Scan CHG vial in the [employer] Q-Care Oral Care Kit, Routine Given 02/17/2024 [...] at 50% of previous rate. Call household appliance mechanic if goal not achieved at maximum [...] PHENYLephrine and/or vasopressin ineffective. Call pager # [phone] if initiated. Titrate to keep systolic blood [...] L/min/M2. Maximum volume 2 L. Call household appliance mechanic for additional fluid orders: pager #[phone]. Rate/Dose Verify 02/18/2024 8:00 AM EDT 1 [...] Routine documented in this encounter Care Teams Wine And Spirits Clerk Relationship Specialty Start Date End Date Aparna Jordan APRN PCP - General Family Medicine 10/21/23 05/26/24 documented as of this encounter
--- OUTSIDE RECORDS SUMMARY | 2024-11-12 09:54 | XMS_ITS | Encounter Summary ---
Author Organization [facility] Address [facility] [place] [address] Care Team Providers Care Fast Brim Pouncer Name Role Phone Gino Vanessa Lane DOTSON Primary Care Provider [phone] Encounter Details Date Type Department Care Team (Late st Contact Info) Description 02/24/2024 Orders Only Cardiac Surgery [facility] [place] [phone] Trudi Lester APRN [facility] [place] [address] Social History Tobacco Use Types Packs/Day Years Used Date Smoking Tobacco: Former Cigarettes Smokeless Tobacco: Never Comments:Quit 15 + years ago Alcohol Use Standard Drinks/Week Comments Yes 0 (1 standard drink = 0.6 oz pur e alcohol) rare [facility] Utilities Answer Date Recorded In the past 12 months has e [employer], gas, oil, or water [employer] threatened to shut off services in [...] PM EST Office Visit Cardiology at [address] [phone] Sheila Johnson APRN [address] [place] [address], [facility] [place] [address] documented as of this encounter Visit Diagnoses Not on filedocumented in this encounter Care Teams Fast Brim Pouncer Relationship Specialty Start Date End Date Vanessa Christian APRN PCP - General Family Medicine 10/21/23 05/26/24 documented as of this encounter
--- OUTSIDE RECORDS SUMMARY | 2024-11-12 09:54 | XMS_ITS | Encounter Summary ---
Author Organization [facility] Address [facility] [place] [address] Care Team Providers Care Vending Machine Coin Collector Name Role Phone Vanessa Christian DIRECTOR [employer] Primary Care Provider [phone] Encounter Details Date Type Department Care Team (Late st Contact Info) Description 03/12/2024 2:40 PM EDT Office [place] [phone] Zak Farmer MD [facility] [place] [address] Coronary artery disease, unspecified vessel or lesion type, unspecified whether angina present, unspecified whether kiana or transplanted heart Social History Tobacco Use Types Packs/Day Years Used Date Smoking Tobacco: Former Cigarettes Smokeless Tobacco: Never Comments:Quit 15 + years ago Alcohol Use Standard Drinks/Week Comments Yes 0 (1 standard drink = 0.6 oz pur e alcohol) rare [facility] Utilities Answer Date Recorded In the past 12 months has e [employer], gas, oil, or water [employer] threatened to shut off services in your [...] 2:40 PM EDT To: MD Vanessa Coles, DIRECTOR [employer] Re; Karlos Santa ( 1960) We had [...] office. Best personal regards, Zak Farmer MD [phone] documented in this encounter Plan of Treatment Upcoming Encounters Date Type Department Care Team (Late st Contact Info) Description 11/30/2024 3:00 PM EST Office Visit Cardiology at [place] [address] [place] [address] Sheila Johnson, MAURI [address] [facility], [facility] [place] [address] documented as of this encounter Procedures Procedure Name Priority Date/Time Associated Diagnosis Comments EKG 12-LEAD Routine 03/12/2024 2:35 PM EDT Coronary artery disease, unspecified vessel or lesion type, unspecified whether angina present, unspecified whether kiana or transplanted heart documented in this encounter Results * EKG 12 Lead (03/12/2024 2:35 PM EDT) Ventricular rate 59 BPM MUSE SYSTEM Atrial Rate 59 BPM MUSE SYSTEM P-R Interval 190 ms MUSE SYSTEM QRS Duration 92 ms MUSE SYSTEM Q-T Interval 406 ms MUSE SYSTEM QTC Calculated (Bezet) 401 ms MUSE SYSTEM Calculated P [place] -12 degrees MUSE SYSTEM Calculated R [place] 24 degrees MUSE SYSTEM Calculated T [place] 74 degrees MUSE SYSTEM INTERPRETATION Sinus bradycardia T wave abnormality, consider anterior ischemia Abnormal ECG When compared with ECG of 17-FEB-2024 13:24, HI interval has decreased T wave inversion now evident in Anterior leads Confirmed by Paul Guzman ([id number]) on 03/15/2024 8:36:23 AM MUSE SYSTEM 03/12/2024 2:35 PM EDT 03/15/2024 8:36 AM EDT Zak Farmer MD ECG ORDERABLES MUSE SYSTEM documented in this encounter Visit Diagnoses Diagnosis Coronary artery disease, unspecified vessel or lesion type, unspecified whether angina present, unspecified whether kiana or transplanted heart documented in this encounter Care Teams Vending Machine Coin Collector Relationship Specialty Start Date End Date Vanessa Christian APRN PCP - General Family Medicine 10/21/23 05/26/24 documented as of this encounter
--- OUTSIDE RECORDS SUMMARY | 2024-11-12 09:54 | XMS_ITS | Encounter Summary ---
Author Organization [facility] Address [place] [address] Care Team Providers Care Wood Hacker Name Role Phone Vanessa Christian MAURI Primary Care Provider [phone] Encounter Details Date Type Department Care Team [...] PM EST Office Visit Cardiology at [address] [phone] Sheila Johnson APRN [address] [place] [address], [facility] [place] [address] documented as of this encounter Visit Diagnoses Not on filedocumented in this encounter Care Teams Wood Hacker Relationship Specialty Start Date End Date Vanessa Christian APRN [address] [place] [address] PCP - General Family Medicine 05/27/24 documented as of this encounter
--- OUTSIDE RECORDS SUMMARY | 2024-11-12 09:54 | XMS_ITS | Clinical Summary ---
Author Organization [facility] Address [facility] [place] [address] Care Team Providers Care Rate Marker Name Role Phone Vanessa Christian Lane DOTSON Primary Care Provider [phone] Allergies No known active allergies Medications Medication [...] meantime will refer to SHT at [facility] for further evaluation. Logistics and preliminary review of TONY were reviewed with patient. - Refer to SHT Hypertension 08/14/2023 Resolved Problems Problem Noted Date Diagnosed Date Resolved Date Nevus of face 09/26/2023 05/27/2024 Overview (09/26/2023): Right nondenominational Chest pressure 08/14/2023 10/21/2023 SILVA (dyspnea on [...] PM EST Office Visit Cardiology at [address] [phone] Sheila Johnson APRN [address] [facility] [place] [address] Health Maintenance Due Date Last Done Comments [...] series) 06/07/2024 Medical Devices Implanted Type Area Lead Pharmacy Technician Device Identifier Shelf Expiration Date Model / Serial / Lot Cable,Cut,Edg ,Blnt,Ss,3tpr ([id number]) - [id number] Implanted:Qty : 1 on 02/17/2024 by Zak Farmer MD at [facility] IMPLANTS Midline: Chest [employer] - [id number] 09/02/2028 [id number] / / [id number] Valve Coronary Aortic 23mm Tissue Trnscath Biop[employer] Inspiris ([id number]) ([employer]ore[employer]) - [id number] Implanted:Qty : 1 on 02/17/2024 by Zak Farmer MD at [facility] IMPLANTS Heart [employer] - [employer]I LI 09/15/2027 [id number] 23MM / [id number] / Advance Directives * Attempt Cardiopulmonary Resuscitation [...] Status decision made by: Patient Care Teams Rate Marker Relationship Specialty Start Date End Date Vanessa Christian APRN [address] [place] [address] PCP - General Family Medicine 05/27/24
--- OUTSIDE RECORDS SUMMARY | 2024-11-12 09:55 | XMS_ITS | Encounter Summary ---
[place] [address] Care Team Providers Care Contact Center Analyst Name Role Phone Victor M Lafleur MD Primary Care Provider [phone] Reason for Visit * Reason Onset Date Comments Referral 09/20/2023 Encounter Details Date Type Department Care Team (Late st Contact Info) Description 09/20/2023 Telephone Cardiology at [address] [phone] Karen Billy, eye technician Social History Tobacco Use Types Packs/Day Years [...] PM EST Office Visit Cardiology at [address] [phone] Sheila Johnson, MAURI [address] [facility] [place] [address] documented as of this encounter Visit Diagnoses Not on filedocumented in this encounter Care Teams Contact Center Analyst Relationship Specialty Start Date End Date Victor M Lafleur MD PCP - General 10/02/13 10/20/23 documented as of this encounter
--- OUTSIDE RECORDS SUMMARY | 2024-11-12 09:55 | XMS_ITS | Encounter Summary ---
[place] [address] Care Team Providers Care Catalogue Clerk Name Role Phone Vanessa Christian Lane DOTSON Primary Care Provider [phone] Reason for Referral * Diagnostic Test (Routine) - Closed Specialty Diagnoses / Procedures Referred By Contac t Referred To Contact Radiology Diagnoses Nonrheumatic aortic valve stenosis Procedures CT Chest wo Contrast (Generic) Louisa Cho PA [facility] [place] [address] [facility] [place] [address] Referral ID Status Reason Start Date Expiration Date V isits Requested Visits Authorized [id number] Closed Specialty Service Requested 01/10/2024 07/11/2025 1 1 Reason for Visit * Diagnostic Test (Routine) - Closed Specialty Diagnoses / Procedures Referred By Contac t Referred To Contact Radiology Diagnoses Nonrheumatic aortic valve stenosis Procedures CT Chest wo Contrast (Generic) Louisa Cho PA [facility] [place] [address] [facility] [place] [address] Referral ID Status Reason Start Date Expiration Date V isits Requested Visits Authorized [id number] Closed Specialty Service Requested 01/10/2024 07/11/2025 1 1 Encounter Details Date Type Department Care Team (Latest Contact Info) Description 02/03/2024 7:36 AM EDT - 02/03/2024 8:05 AM EDT Hospital Encounter CT Scan at [facility] [place] [address] Zak Farmer MD [facility] [place] [address] Nonrheumatic aortic valve stenosis Discharge Disposition: Home Social History Tobacco Use Types Packs/Day Years Used Date Smoking Tobacco: Former Cigarettes Smokeless Tobacco: Never Comments:Quit 15 + years ago Alcohol Use Standard Drinks/Week Comments Yes 0 (1 standard drink = 0.6 oz pur e alcohol) rare [facility] Inpatient Questions Answer Date Recorded Does Anyone [...] 3:00 PM EST Office Visit Cardiology at [place] [address] [place] [address] Sheila Johnson, HAIR MIXER [address] [facility], [facility] [place] [address] documented as of this encounter Procedures Procedure Name Priority Date/Time Associated Diagnosis Comments CT CHEST WO CONTRAST (GENERIC) Routine 02/03/2024 7:44 AM EDT Nonrheumatic aortic valve stenosis documented in this encounter Results * CT Chest wo Contrast (Generic) (02/03/2024 7:44 AM EDT) Pathologist [employer] WORKSTATION ID [id number] DH RAD Anatomical Region Laterality Modality Chest [...] signed by: Rogerio Wright MD, [facility] ([phone]), at 02/03/2024 10:00 AM Narrative 02/03/2024 10:00 [...] healthcare liaison that requested your imaging first. Electronically signed by: Rogerio Wright MD, [facility]([phone]), at 02/03/2024 10:00 AM Zak Farmer MD IMG CT ORDERABLES documented in this encounter Visit Diagnoses Diagnosis Nonrheumatic aortic valve stenosis Aortic valve disorders documented in this encounter Care Teams Catalogue Clerk Relationship Specialty Start Date End Date Vanessa Christian APRN PCP - General Family Medicine 10/21/23 05/26/24 documented as of this encounter
--- OUTSIDE RECORDS SUMMARY | 2024-11-12 09:55 | XMS_ITS | Encounter Summary ---
Author Organization [facility] [place] [address] Care Team Providers Care Coating And Baking Operator Name Role Phone Vanessa Christian MAURI Primary Care Provider [phone] Encounter Details Date Type Department Care Team (Late st Contact Info) Description 12/26/2023 Notes Only Cardiology at [address] [address] Neftali Ernandez MD [facility] [place] [address] Social History Tobacco Use Types Packs/Day Years [...] EDT Echocardiogram images reviewed from [facility]. Indeed, the aortic valve appears severely stenotic. Cannotrule out bicuspid valve documented in this encounter Plan of Treatment Upcoming Encounters Date Type Department Care Team (Late st Contact Info) Description 11/30/2024 3:00 PM EST Office Visit Cardiology at [address] [address] Sheila Johnson APRN [address] [place] [address], [place] [address] documented as of this encounter Visit Diagnoses Not on filedocumented in this encounter Care Teams Coating And Baking Operator Relationship Specialty Start Date End Date Vanessa Christian APRN PCP - General Family Medicine 10/21/23 05/26/24 documented as of this encounter
--- OUTSIDE RECORDS SUMMARY | 2024-11-12 09:55 | XMS_ITS | Encounter Summary ---
Author Organization [facility] [place] [address] Care Team Providers Care Franchise Development Manager Name Role Phone Vanessa Christian Lane DOTSON Primary Care Provider [phone] Encounter Details Date Type Department Care Team (Latest Contact Info) Description 01/09/2024 3:00 PM EDT Laboratory [place] [phone] Nonrheumatic aortic valve stenosis Social History Tobacco Use Types Packs/Day Years Used Date Smoking Tobacco: Former Cigarettes Smokeless Tobacco: Never Comments:Quit 15 + years ago Alcohol Use Standard Drinks/Week Comments Yes 0 (1 standard drink = 0.6 oz pur e alcohol) rare [facility] Inpatient Questions Answer Date Recorded Prevent [...] 3:00 PM EST Office Visit Cardiology at [place] [address] [place] [id number] Sheila Johnson APRN [address] [facility], [place] [address] documented as of this encounter Procedures Procedure Name Priority Date/Time Associated Diagnosis Comments ABORH RECHECK STATUS Routine 01/09/2024 2:58 PM EDT HEMOGRAM Routine 01/09/2024 2:58 PM EDT Nonrheumatic aortic valve stenosis DIFFERENTIAL, AUTOMATED Routine 01/09/2024 2:58 PM EDT Nonrheumatic aortic valve stenosis TYPE AND SCREEN, SDP (FUTURE SURGERY, [facility] SAME [...] CECILIO ALEMAN [facility] [place] [address] * Differential, Automated (01/09/2024 2:58 PM EDT) Neutrophil % 70.5 % [facility] Neutrophil Absolute 4.34 1.70 - 6.10 x10(3)/[facility] LABOR[facility] Lymph % 18.9 % [facility] Lymphocytes Abs 1.2 0.9 - 3.2 x10(3)/[facility] Monocyte % 8.0 % [facility] Monocyte Abs 0.5 0.3 - 0.9 x10(3)/[facility] Eos % 1.6 % [facility] Eosinophils Abs 0.1 0.0 - 0.4 x10(3)/[facility] Basophil % 0.5 % [facility] Baso Absolute 0.0 0.0 - 0.1 x10(3)/[facility] Immature Gran % 0.50 % [facility] Comment: Immature granulocytes(IG's)percentage and absolute count will include metamyelocytes, myelocytes, and promyelocytes. Blood smears from CBCs yielding IG's will be scanned manually for concordance. If this scan disagrees with the automated IG or if promyelocytes are noted, a manual differential will be performed. Immature Gran Absolute 0.03 0.00 - 0.04 x10(3)/[facility] Blood 01/09/2024 2:58 PM EDT 01/09/2024 3:03 PM EDT Narrative Resulting Agency Comment Spec In Lab Zak Farmer MD HEMATOLOGY ORDERABL ES [facility] [place] [address] * Hemogram (01/09/2024 2:58 PM EDT) White Blood Cell 6.2 4.0 - 9.5 x10(3)/[facility] LAB[facility] Red Blood Cell 5.53 4.58 - 5.54 x10(6)/[facility] Hemoglobin 16.1 13.7 - [...] CENTER LABORATORY Platelet 187 145 - 357 x10(3)/[facility] LABORAT[facility] RDW Standard Deviation 39.2 36.0 - 45.0 [facility] LABORATORY RDW coefficient of variation 12.6 11.4 - 13.8 % [facility] Mean Platelet Volume 9.5 7.6 - 12.9 [facility] LABORATORY NRBC% auto 0.0 % [facility] NRBC Absolute 0.000 0.000 - 0.000 x10(3)/[facility] Blood 01/09/2024 2:58 PM EDT 01/09/2024 3:03 PM EDT Narrative Resulting Agency Comment Spec In Lab Zak Farmer MD HEMATOLOGY ORDERABL ES [facility] [place] [address] * Basic Metabolic Panel (non-fasting) (01/09/2024 2:58 [...] Lab Zak Farmer MD CHEMISTRY ORDERABLE S [facility] [place] [address] * Hepatic Function Panel (01/09/2024 2:58 PM [...] ORDERABLE S Performing Organization Address [facility] Co de Phone Number [facility] [place] [address] * Prothrombin Time (01/09/2024 2:58 PM EDT) [...] ORDERABL ES Performing Organization Address [facility] Co de Phone Number [facility] [place] [address] * Type and Screen Future Surgery, [facility] SAME DAY PROGRAM ONLY) (01/09/2024 2:58 PM EDT) Pathologist [facility] ABORH Type O NEGATIVE [facility] Patient BB History Not Found [facility] Expires at [id number] on: 02-20-2024 [facility] Ab Screen Interp Negative [facility] Blood 01/09/2024 2:58 PM EDT 01/09/2024 2:58 PM EDT Narrative Resulting Agency Comment Spec In Lab Zak Farmer MD BLOOD BANK LAB [facility] [place] [phone] documented in this encounter Visit Diagnoses Diagnosis Nonrheumatic aortic valve stenosis Aortic valve disorders documented in this encounter Care Teams Franchise Development Manager Relationship Specialty Start Date End Date Vanessa Christian APRN PCP - General Family Medicine 10/21/23 05/26/24 documented as of this encounter
--- OUTSIDE RECORDS SUMMARY | 2024-11-12 09:55 | XMS_ITS | Encounter Summary ---
Author Organization [facility] [place] [address] Care Team Providers Care Marine Propulsion Technician Name Role Phone Vanessa Christian APRN Primary Care Provider [phone] Encounter Details Date Type Department Care Team [...] PM EST Office Visit Cardiology at [address] [address] Sheila Johnson APRN [address] [facility], [facility] [place] [address] documented as of this encounter Visit Diagnoses Not on filedocumented in this encounter Care Teams Marine Propulsion Technician Relationship Specialty Start Date End Date Vanessa Christian APRN PCP - General Family Medicine 10/21/23 05/26/24 documented as of this encounter
--- OUTSIDE RECORDS SUMMARY | 2024-11-12 09:55 | XMS_ITS | Encounter Summary ---
[facility] Organization [facility] [place] [address] Care Team Providers Care Harness Cutter Name Role Phone Aparna Jordan MAURI Primary Care Provider [phone] Reason for Visit * Auth/Cert (Routine) Specialty [...] ARTERIAL GRAFT (WRVU 7.93) Hayder Graham MD [facility] [place] [address] [facility] Referral ID Status Reason Start Date Expiration Date Visits Re quested Visits Authorized [id number] 1 1 Encounter Details Date Type Department Care Team (Late st Contact Info) Description 02/17/2024 7:30 AM EDT - 02/17/2024 1:26 PM EDT [place] [id number] Hyader Graham MD [facility] [place] [address] ENDOSCOPIC HARVEST VEIN(S) FOR CABG (WRVU 0.31) Social History Tobacco Use Types Packs/Day Years Used Date Smoking Tobacco: Former Cigarettes Smokeless Tobacco: Never Comments:Quit 15 + years ago Alcohol Use Standard Drinks/Week Comments Yes 0 (1 standard drink = 0.6 oz pur e alcohol) rare [facility] Utilities Answer Date Recorded In [...] Patient Age: 63 y.o. Birthdate: 1960 Language: Ugandan Race: White Ethnicity: Not nor Admit Date: 02/17/2024 Discharge Date: 02/24/24 Attending Physician: Hayder Graham MD Follow-up Recommendations for Providers: Please continue routine management of cardiovascular risk factors including blood pressure, lipids,glucose, etc. Please note any changes to medications. Patient to follow up with PCP, Aparna Jordan APRN, in 1-2 weeks. Patient to follow up with Funeral Arrangement Director, Neftali Ernandez MD , in 2 weeks. Patient to follow up with Cardiac Surgeon, Dr. Hayder Graham, with a chest x-ray, EKG, and Echo. Inpatient Provider Contact Information: [facility] Section of Cardiac Surgery [facility] [address] FAX [phone] Discharge Diagnoses (Hospital Problems) Primary Diagnoses: /CAD [...] Hypertension 08/14/2023 Nevus of face 09/26/2023 Right mosque Past Surgical History: Procedure Laterality Date PRO CABG, ARTERIAL, SINGLE N/A 02/17/2024 @CABG, USING ARTERIAL GRAFT;SINGLE ARTERIAL GRAFT (WRVU 33.75) performed by Hayder Graham MD at [facility] MAIN OR PRO CABG, ARTERY-VEIN, TWO N/A 02/17/2024 @CABG, TWO VENOUS GRAFTS & ARTERIAL GRAFT (WRVU 7.93) performed by Hayder Graham MD at [facility] MAIN OR PRO ENDOSCOPY W/VIDEO-ASST VEIN HARVEST, CABG Left 02/17/2024 ENDOSCOPIC HARVEST VEIN(S) FOR CABG (WRVU 0.31) performed by Hayder Graham MD at [facility] MAIN OR PRO REPLACEMENT PROSTHETIC AORTIC VALVE OPEN W CARDIOPULMONARY BYPASS HOMOGRF/STENT N/A 02/17/2024 @REPLACE AORTIC VALVE, OPEN, W\CPB, W\PROSTHETIC VALVE (WRVU 41.32) performed by Hayder Graham MD at [facility] MAIN OR Prior To Admission Medications Medications [...] insufficiency. He has glaucoma. He used to bacGlobalPay until about 15 years ago. He has [...] Hayder Graham and/or the Cardiac Surgery Physician Concrete Fence Builder Team may be reached at . Antibiotic [...] Hayder Graham. You may use a [place] Track or treadmill but avoid any [...] while being managed by your PCP and/or Funeral Arrangement Director. For future medication refills, please refer to your PCP and/or Funeral Arrangement Director after your discharge from our service. Thank you REMOVE CHEST TUBE SUTURES ON OR AFTER 03/02/24 Home oxygen therapy: N/A Follow up appointments: You should follow up with your PCP, Aparna Jordan APRN, in 1-2 weeks. Our office will schedule an appointment with your Funeral Arrangement Director, Neftali Ernandez MD , in 2 weeks. You have an appointment with your Cardiac Surgeon, Dr. Hayder Graham, 4 weeks with a chest x-ray, EKG, and Echo before your appointment. Cardiac Rehabilitation: Karlos Garcia was seen regarding participation in the outpatient Phase 2Cardiac Rehabilitation at [facility]. The patient agrees to a referral to this program. The referral will be sent at discharge and the patient should be contacted by the Program within 1- 2 weeks from discharge. Future Appointments and Orders Future Orders Complete By Expires Echocardiogram Transthoracic [59156 CPT(R)] 03/26/2024 09/25/2024 Process Instructions: Scheduling Instructions: Questions: Where will study be performed?: [facility] Clinics Does the patient have Congenital Heart Disease?: Does patient require sedation?: Sedation rationale: XR Chest PA & Lateral (Generic) [23148 66863 Custom] 03/26/2024 09/25/2024 Process Instructions: Scheduling Instructions: Questions: Portable exam?: Reason for exam and clinical history: s/p avr/cabg Clinical information / jerome questions for radiologist: Stat read required?: Date of injury if applicable: Requested Time: Where will study be performed?: [facility] Radiology Referral to Cardiac Rehab [RGS014 Custom] As directed Process Instructions: If no progress note charted, please enter Clinical details in comments. Scheduling Instructions: Questions: My question or request is: s/p AVR/CABG. Cardiac rehab at [facility]. Referral to Home Health [REF34 Custom] As directed Process Instructions: If no progress note charted, please enter Clinical details in comments. Scheduling Instructions: Comments: Please evaluate Karlos Garcia for admission to Home Health. [address] Phone Number: Date of : 1960 Inpatient DOCUMENTATION FOR VNA SERVICES (INCLUDING THOSE PATIENTS WITH MEDICARE COVERAGE REQUIRING HOME VNA SERVICES AND/OR HOSPICE SERVICES) PATIENT'S LOCATION: Karlos Garcia [address] [employer] [phone] Smash Piecer's Name: self/family In discussion with the attending physician, it is certified that this patient is under their care and that they, or a Nurse Practitioner, or Physician Concrete Fence Builder who is working directly with them, hada [...] for services as follows: HOME HEALTH AGENCY: [facility] [address] [place] [phone] RN orders: Cardiopulmonary assessment, incisional assessment, assess [...] issues please call the Cardiology Office at [phone] FOR MEDICARE ONLY: (please delete this section [...] PA-C [facility] Section of Cardiac Surgery [facility] [address] FAX [phone] Date: 02/24/2024 CC: Aparna Jordan, MAURI Jordan, Aparna Sherman APRN [address] [place] [address] documented in this encounter Discharge Instructions * [...] Hayder Graham and/or the Cardiac Surgery Physician Concrete Fence Builder Team may be reached at . Antibiotic [...] Hayder Graham. You may use a [place] Track or treadmill but avoid any [...] while being managed by your PCP and/or Funeral Arrangement Director. For future medication refills, please refer to your PCP and/or Funeral Arrangement Director after your discharge from our service. Thank you REMOVE CHEST TUBE SUTURES ON OR AFTER 03/02/24 Home oxygen therapy: N/A Follow up appointments: You should follow up with your PCP, Aparna Jordan APRN, in 1-2 weeks. Our office will schedule an appointment with your Funeral Arrangement Director, Neftali Ernandez MD , in 2 weeks. You have an appointment with your Cardiac Surgeon, Dr. Hayder Graham, 4 weeks with a chest x-ray, EKG, and Echo before your appointment. Cardiac Rehabilitation: Karlos Garcia was seen regarding participation in the outpatient Phase 2Cardiac Rehabilitation at [facility]. The patient agrees to a [...] 0600 and on the weekends please page [phone]. * Eric Barahona PA - 02/23/2024 9:27 [...] 0600 and on the weekends please page [phone]. * Tiffanie Owens, TRAIN GATE ATTENDANT - 02/22/2024 2:48 PM EDT Physical [...] d/c for 10 days. 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 * Kelley Hinson TRAIN GATE ATTENDANT - 02/21/2024 10:15 AM EDT Physical [...] d/c for 10 days. 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 * Kelley Hinson PTA - 02/20/2024 3:32 [...] at that time Kelley Hinson PTA Pager: [phone] Physical Therapy Inpatient Rehab Department * Louisa [...] 0600 and on the weekends please page [phone]. * Maris Benavides, PT - 02/19/2024 11:22 [...] d/c for 10 days. 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 Precautions/Special Considerations: [...] outlined inthis evaluation. MARIS BENAVIDES, PT Pager: [phone] Physical Therapy Inpatient Rehabilitation Department Time IN / OUT: 9726-3626 Total Time: 38 (eval) minutes; * Antonio [...] on the weekends please page [phone]. * Minnie Begum PA - 02/18/2024 8:25 [...] 0600 and on the weekends please page [phone]. * Kim Ha RCP - 02/17/2024 2:25 [...] plan since last visit. Hayder Graham MD [phone] Source Note - Hayder Graham MD - [...] given written informed consent. Hayder Graham MD [phone] * Hayder Graham MD - 02/17/2024 7:00 [...] given written informed consent. Hayder Graham MD [phone] documented in this encounter Miscellaneous Notes * [...] for follow-up Home Health & Hospice, [address] [place] [address] Cardiac Rehab, [address] [place] [address] Transportation: family or friend will provide Functional status prior to admission: Independent Home Environment: Others in the home: alone. Current Living Arrangements: home/apartment/condo. Accessibility Concerns:a few steps to enter 1 floor home. Current Functional Ability: Assistive Person and Equipment DME used at home: none DME Needed at Discharge: N/A Patient is insured through: Primary Insurance: [employer] Payor: [facility] / Plan: [facility] PPO / Product Type: *No Product [...] pain managed with scheduled Tylenol. Worked with [employer]. Ambulated in the roque multiple times during [...] is insured through: Primary Insurance: [facility] Payor: [facility] / Plan: [facility] PPO / Product Type: *No Product type* / Secondary Insurance: N/A Last Physical Therapy Recommendation: home with home health (Str coming to stay for a week or two upon d/c) with to be determined (owns rolling walker, shower seat) Plan for discharge is: Home w/ Services Outpatient Agency/Support Group Needs: Homecare agency Home Health Services: Physical Therapy, Registered Nurse Agency Referrals: [facility] [address] [place] [phone] Transportation: family or friend will provide Barriers to discharge: Discharge planning Plan going forward: Service Care Management will continue to follow and assist with discharge planning and coordination of care as indicated. Anticipated Date of Discharge: 02/22/2024 Rhett Bell RN RN/CM - Cellphone: [phone] Pager: [phone] Covering Service RN/CM * Plan of Care [...] Yang RN - 02/19/2024 10:44 AM EDT [facility] CARDIAC REHABILITATION Karlos Garcia was seen today regarding participation in the outpatient Phase 2 Cardiac Rehabilitation at [facility]. The patient agrees to a [...] Hypertension 08/14/2023 Nevus of face 09/26/2023 Right mosque Hospitalizations Within the Past 30 Days: no previous admission in last 30 days Current Decision-Making Capacity: Self If AD's have not been completed the following surrogate would be surrogate decision maker per [place] surrogate decision making law. (Only good for 180 days) Any patient receiving care in [place] must abide by [place] law. The hierarchy [...] (i) The agent with financial power of associate professor of surgery or a conservator appointed in accordance with [...] steady place to sleep or slept in formerly [facility] (including now)?: No In the past 12 months has the [employer], gas, oil, or water [employer] threatened to shut off services in [...] confirmed as: [address] [facility] [address] Physical address: [address] [facility], [address] Social & Family Supports: All names listed [...] noted Health/Prescription Coverage: Primary Insurance: [facility] Payor: [facility] / Plan: [facility] PPO / Product Type: *No Product type* / Secondary Insurance: N/A ; Prescription Coverage: Yes Preferred Pharmacy: [id number] [address] [place] Status: Patient is a : No Primary Care Provider confirmed: Aparna Jordan, MAURI [phone] Patient/Caregiver Goals of Treatment: dc to home Potential Needs for Transition of Care: home health care Agency Referrals: I have met with the patient to: discuss discharge planning needs. provide the [facility], Office of Care Management letter from the Varnish Maker pertaining to rehab referrals. provide a letter describing our affiliations within the [facility] and educate about their right to choose where referrals are sent. provide a list of Home Health Agencies / Durable Medical Equipment vendors which serve their preferred geographic area. provided patient with [facility] Star Quality Rating handout. They have requested referrals to: [facility] [address] [place] [address] Note routed to a Road Freight Conductor who will communicate referrals to facilities and [...] Reina Greene RN CM, BSN, CMGT-BC Ext [phone] * Plan of Care - Binta Trinidad [...] Operative Note Patient Name: Karlos Garcia : [id number] MR#: [id number] Case Date: 02/17/2024 Surgeon: Surgeon(s) and Role: * Hayder Graham MD - Primary * Neftali Menon PA - Physician Concrete Fence Builder Preoperative diagnosis: CAD Postoperative diagnosis: CAD, intraoperative [...] Mediastinal and Left pleural Disposition: [facility] Condition: doing well without problems Attestation: Case Date: 02/17/2024 I performed this procedure without the involvement of a resident. HAYDER GRAHAM MD 02/17/2024 * Op Note - Hayder Graham MD - 02/17/2024 8:20 AM EDT [facility] Operative Note Patient Name: Karlos Garcia : [id number] MR#: [id number] Case Date: 02/17/2024 Surgeon: Surgeons and Role: * Hayder Graham MD - Primary * Neftali Menon PA - Physician Concrete Fence Builder Preoperative diagnosis: CAD Postoperative diagnosis: CAD, intraoperative [...] Mediastinal and Left pleural Disposition: [facility] Procedure Description: The patient was brought to [...] PM EST Office Visit Cardiology at [address] [address] Sheila Johnson, MAURI [address] [facility], [facility] [place] [address] Scheduled Orders Name Type Priority Associated Diagnoses [...] Aortic Valve Open W Cardiopulmonary Bypass Homogrf/Stent (68291) Yes 02/17/2024 7:28 AM EDT CAD Cabg, Artery-Vein, Two (18898) Yes 02/17/2024 7:28 AM EDT CAD Cabg, Arterial, Single (94620) Yes 02/17/2024 7:28 AM EDT CAD Endoscopy W/Video-Asst Vein [place], Cabg (87753) Yes 02/17/2024 7:28 AM EDT CAD POCT [...] CHEMISTRY ORDERABLE S [facility] [place] [address] * (ABNORMAL) Basic Metabolic Panel (non-fasting) (02/23/2024 [...] MD CHEMISTRY ORDERABLES [facility] [place] [address] * Potassium (02/22/2024 4:30 AM EDT) Potassium [...] CHEMISTRY ORDERABLE S [facility] [place] [address] * (ABNORMAL) Basic Metabolic Panel (non-fasting) (02/21/2024 [...] 31 [facility] Comment:Add-on request. Samwilly le [...] [facility]/ZIP Co de Phone Number [facility] [place] [address] * Lactate, whole blood, send to lab ([facility]) (02/21/2024 9:45 AM EDT) [facility] Lactate WB 2.0 0.5 - 2.2 mmol/L [facility] Blood 02/21/2024 9:45 AM EDT 02/21/2024 9:52 AM EDT Narrative Resulting Agency Comment Spec In Lab Hayder Graham MD CHEMISTRY ORDERABLE S Performing Organization Address [facility] Co de Phone Number [facility] [place] [address] * (ABNORMAL) Hepatic Function Panel (02/21/2024 9:45 AM EDT) [facility] Protein, Total 5.7(L) 6.1 - 8.0 g/dL [...] CHEMISTRY ORDERABLE S [facility] [place] [address] * Lipase (02/21/2024 9:45 AM EDT) Lipase 56 0 - 60 unit/L [facility] Blood 02/21/2024 9:45 AM EDT 02/21/2024 9:52 AM EDT Narrative Resulting Agency Comment Spec In Lab Hayder Graham MD CHEMISTRY ORDERABLE S Performing Organization Address City/[facility]/ZIP Co de Phone Number [facility] [place] [address] * Amylase (02/21/2024 9:45 AM EDT) Amylase 69 28 - 100 unit/L [facility] Blood 02/21/2024 9:45 AM EDT 02/21/2024 9:52 AM EDT Narrative Resulting Agency Comment Spec In Lab Hayder Graham MD CHEMISTRY ORDERABLE S Performing Organization Address [facility] Co de Phone Number [facility] [place] [address] * Potassium (02/21/2024 3:08 AM EDT) Potassium [...] [facility]/ZIP Co de Phone Number [facility] [place] [address] * XR Chest PA & Lateral (Generic) (02/20/2024 10:19 AM EDT) WORKSTATION ID [id number] RAD Anatomical Region Laterality Modality Chest N/A [...] signed by: Rogerio Cruz MD, [facility] ??([phone]), at 02/20/2024 1:11 PM Narrative 02/20/2024 1:11 PM EDT EXAMINATION: XR CHEST PA AND LATERAL (GENERIC) CLINICAL HISTORY: s/p AVR/CABGx3 TECHNIQUE: PA and lateral views of the chest COMPARISON: 02/17/2024 FINDINGS: Support devices: Interval removal of Paradise-Kaila catheter, endotracheal tube and mediastinal chest tubes The cardiac silhouette is stable status post median sternotomy, CABG and aortic valve replacement. There are small pleural effusions. No pneumothorax. Procedure Note Rogerio Crzu MD - 02/20/2024 EXAMINATION: XR CHEST PA AND LATERAL (GENERIC) CLINICAL HISTORY: s/p AVR/CABGx3 TECHNIQUE: PA and lateral views of the chest COMPARISON: 02/17/2024 FINDINGS: Support devices: Interval removal of [place]-K[place]a catheter, endotracheal tubeand mediastinal chest tubes The [...] of care that requested your imaging first. Hayder Graham MD IMG DX ORDERABLES * Scan, Peripheral Blood (02/20/2024 4:23 AM EDT) Pathologist [facility] Plat estimate Decreased [facility] RBC Morphology Normal [facility] Blood 02/20/2024 4:23 AM EDT 02/20/2024 4:42 AM EDT Narrative Resulting Agency Comment Spec In Lab Minnie FRENCH HEMATOLOGY CECILIO ALEMAN [facility] [place] [address] * (ABNORMAL) Differential, Automated (02/20/2024 4:23 AM EDT) Pathologist [facility] Neutrophil % 81.7 % [place] [...] Comment Spec In Lab Minnie FRENCH HEMATOLOGY CCEILIO ALEMAN [facility] [place] [address] * (ABNORMAL) Hemogram (02/20/2024 4:23 AM EDT) White Blood Cell 12.7(H) 4.0 - 9.5 x10(3)/ L [facility] Red Blood Cell 4.26(L) 4.58 - 5.54 x10(6)/mc L [facility] Hemoglobin 12.3(L) 13.7 - [...] Platelet 88(L) 145 - 357 x10(3)/ L [facility] RDW Standard [...] HEMATOLOGY CECILIO ALEMAN [facility] [place] [address] * (ABNORMAL) Basic Metabolic Panel (non-fasting) (02/20/2024 4:23 AM EDT) Glucose 113 65 - 199 mg/dL [facility] Comment:Diabetes: >=200 mg/d L plus symptoms Blood Urea Nitrogen 20 10 - 20 mg/dL [facility] Comment:result rechecked-CT Creatinine 0.71(L) 0.80 - 1.50 mg/dL [facility] [...] S Performing Organization Address [facility] Co de Phone Number [facility] [place] [address] * Potassium (02/19/2024 3:57 AM EDT) Potassium [...] S Performing Organization Address [facility]/ZIP Co de Phone Number [facility] [place] [address] * POCT Glucose (02/18/2024 8:24 AM EDT) Glucose, POC 157 65 - 199 mg/dL [facility] Comment: Supplemental ranges: <140 mg/dL before meals <180 mg/dL all other times of the day Blood 02/18/2024 8:24 AM EDT 02/18/2024 8:24 AM EDT Hayder Graham MD POINT OF CARE TEST ORDERABLES [facility] [place] [address] * Scan, Peripheral Blood (02/18/2024 1:40 AM EDT) Plat estimate Decreased [facility] RBC Morphology Normal [facility] Blood 02/18/2024 1:40 AM EDT 02/18/2024 1:56 AM EDT Narrative Resulting Agency Comment Spec In Lab Neftali FRENCH HEMATOLOGY ORDER OLE Performing Organization Address City/[facility]/ZIP Co de Phone Number [facility] [place] [address] * (ABNORMAL) Differential, Automated (02/18/2024 1:40 AM EDT) [facility] Neutrophil % 87.1 % [place] [...] HEMATOLOGY ORDER OLE [facility] [place] [address] * (ABNORMAL) Hemogram (02/18/2024 1:40 AM EDT) [...] HEMATOLOGY ORDER OLE [facility] [place] [address] * (ABNORMAL) Basic Metabolic Panel (non-fasting) (02/18/2024 [...] CHEMISTRY ORDERABLE S [facility] [place] [address] * (ABNORMAL) Troponin (02/18/2024 1:40 AM EDT) [...] [facility] Test Catalog Reference: Fourth [place] Definition of Myocardial Infarction. Journal of the [place] College [employer] Cardiology 2018;72:6176-6119 Blood 02/18/2024 1:40 AM EDT 02/18/2024 1:56 AM EDT Narrative Resulting Agency Comment Spec In Lab Hayder Graham MD CHEMISTRY ORDERABLE S Performing Organization Address [facility] Co de Phone Number [facility] [place] [address] * POCT Glucose (02/17/2024 8:13 PM EDT) Glucose, POC 142 65 - 199 mg/dL [facility] Comment: Supplemental ranges: <140 mg/dL before meals <180 mg/dL all other times of the day Blood 02/17/2024 8:13 PM EDT 02/17/2024 8:13 PM EDT Hayder Graham MD POINT OF CARE TEST ORDERABLES Performing Organization Address [facility] Co de Phone Number [facility] [place] [address] * POCT Glucose (02/17/2024 5:42 PM EDT) Glucose, POC 160 65 - 199 mg/dL [facility] Comment: Supplemental ranges: <140 mg/dL before meals <180 mg/dL all other times of the day Blood 02/17/2024 5:42 PM EDT 02/17/2024 5:42 PM EDT Hayder Graham MD POINT OF CARE TEST ORDERABLES Performing Organization Address [facility]/ZIP Co de Phone Number [facility] [place] [address] * Hemoglobin (02/17/2024 5:42 PM EDT) Hemoglobin 13.7 13.7 - 16.5 g/dL [facility] Blood 02/17/2024 5:42 PM EDT 02/17/2024 6:10 PM EDT Narrative Resulting Agency Comment Spec In Lab Hayder Graham MD HEMATOLOGY ORDERABL ES Performing Organization Address [facility] Co de Phone Number [facility] [place] [address] * Potassium (02/17/2024 5:42 PM EDT) Potassium [...] S Performing Organization Address [facility] Co de Phone Number [facility] [place] [address] * (ABNORMAL) BLOOD GAS 2 ARTERIAL (02/17/2024 [...] de Phone Number [facility] [place] [address] * XR Chest One View (02/17/2024 1:44 PM EDT) Mpax WORKSTATION ID [id number] RAD Anatomical Region Laterality Modality Chest N/A Digital Radiogra phy Impressions 02/17/2024 2:12 PM EDT 1. ??No definite pleural fluid collection or pneumothorax. 2. ??Right IJ Paradise-Kaila catheter tip terminates in a descending branch [...] signed by: Denzel Hankins MD, [facility] ??([phone]), at 02/17/2024 2:12 PM Narrative 02/17/2024 2:12 PM EDT EXAMINATION: XR CHEST ONE VIEW CLINICAL HISTORY: s/p avr/cabg eval effusions TECHNIQUE: 1 view of the chest COMPARISON: Chest x-ray 01/09/2024, chest CT 02/03/2024 FINDINGS: ET tube tip terminates 5.2 cm above the carlos. Right IJ Paradise-Kaila catheter tip terminates in a descending branch [...] 5.2 cm above the carlos. Right IJ Paradise-Ganzcatheter tip terminates in a descending branch of [...] fluid collection or pneumothorax. 2. Right IJ Paradise-Kaila catheter tip terminates in a descending branch [...] of care that requested your imaging first. Electronically signed by: Denzel Hankins MD, [facility]([phone]), at 02/17/2024 2:12 PM Hayder Graham MD [...] CARE TEST ORDERABLES [facility] [place] [address] * (ABNORMAL) Coox2 (02/17/2024 1:21 PM EDT) [...] CARE TEST ORDERABLES [facility] [place] [address] * (ABNORMAL) BLOOD GAS 2 ARTERIAL (02/17/2024 [...] OF CARE TEST ORDERABLES Performing Organization Address [facility] Co de Phone Number [facility] [place] [address] * (ABNORMAL) Fibrinogen (02/17/2024 12:10 PM EDT) [...] MD HEMATOLOGY ORDERABLE S Performing Organization Address [facility] Co de Phone Number [facility] [place] [address] * (ABNORMAL) Thrombin time (02/17/2024 12:10 PM [...] MD HEMATOLOGY ORDERABLE S Performing Organization Address [facility] Co de Phone Number [facility] [place] [address] * APTT (02/17/2024 12:10 PM EDT) Partial [...] MD HEMATOLOGY ORDERABLE S Performing Organization Address [facility]/ZIP Co de Phone Number [facility] [place] [address] * (ABNORMAL) Prothrombin Time (02/17/2024 12:10 PM [...] HEMATOLOGY ORDERABLE S [facility] [place] [address] * (ABNORMAL) Hemogram (02/17/2024 12:10 PM EDT) [...] HEMATOLOGY ORDERABLE S [facility] [place] [address] * (ABNORMAL) BLOOD GAS 2 ARTERIAL (02/17/2024 [...] [facility] Comment: Noted by instrumentation engineering technician. [...] CARE TEST ORDERABLES [facility] [place] [address] * (ABNORMAL) BLOOD GAS 2 ARTERIAL (02/17/2024 [...] MEDICAL CENTER [facility] Comment: Noted by instrumentation engineering technician. [...] OF CARE TEST ORDERABLES Performing Organization Address [facility]/ZIP Co de Phone Number [facility] [place] [address] * (ABNORMAL) Hemoglobin and Hematocrit, blood (02/17/2024 [...] [facility]/ZIP Co de Phone Number [facility] [place] [address] * (ABNORMAL) Platelet count (02/17/2024 11:04 AM EDT) Platelet 106(L) 145 - 357 x10(3)/mc L [facility] Immature Plt % 1.6 0.0 - 7.4 % [facility] Comment: Limitation of the Immature Platelet Fraction (IPF)-May be less reliable when the platelet count is less than 69k137/uL due to statistical imprecision. The IPF value [...] in a decreased state of production. References: [employer] The Clinical Value of the Immature Platelet Fraction (IPF) in Cell Recovery Document Number [id number] 03/2011 [employer] The Role of the Immature Platelet Fraction (IPF) in the Differential Diagnosis of Thrombocytopenia, Document [id number] V002/15/14 P002/17 Blood 02/17/2024 11:0 4 AM EDT 02/17/2024 11:12 AM EDT Narrative Resulting Agency Comment Spec In Lab Hayder Graham MD HEMATOLOGY ORDERABL ES Performing Organization Address City/State/[facility] Co de Phone Number [facility] [place] [address] * (ABNORMAL) Fibrinogen (02/17/2024 11:04 AM EDT) [...] HEMATOLOGY ORDERABL ES [facility] [place] [address] * (ABNORMAL) BLOOD GAS 2 ARTERIAL (02/17/2024 [...] CARE TEST ORDERABLES [facility] [place] [address] * (ABNORMAL) BLOOD GAS 2 ARTERIAL (02/17/2024 [...] de Phone Number [facility] [place] [place] [address] * Surgical Pathology Report (02/17/2024 10:01 AM EDT) Final Diagnosis [id number] ? Location: [facility]; [facility][note 3]; The signing pathologist has (i) examined the relevant preparation(s) for the specimen(s) and (ii) rendered or confirmed the diagnosis(es). . ?Surgical Pathology DIAGNOSIS Aortic valve leaflets, excision: Valve leaflets with myxoid degeneration, nodular fibrosis and dystrophic calcifications. Electronically signed by: ?Lindsay FERNANDEZ, Livier Gonzalez Verified: ??02/24/2024 13:49 ??Pathologist Performed at: ??-[facility] Dept. of Pathology, [place] [address] Varnish Maker: Job Brewer MD, FCAP, ??CLIA Certificate: [id number] SPECIMEN(S) SUBMITTED A - Aortic Valve Leaflets, [...] Sections Processing Blocks submitted for decalcification: A1. Pool Hand sections in 1 cassette labeled A1. ??ajw 02/24/2024 1:49 PM EDT [facility] AORTIC STRUCTURE / Unknown 02/17/2024 10:01 AM EDT 02/17/2024 10:01 AM EDT Hayder Graham MD PATHOLOGY/CYTOLOGY ORDERABLES Performing Organization Address City/[facility]/ZIP Co de Phone Number [facility] [place] [address] * Specimen to Pathology (02/17/2024 10:01 AM EDT) AP Specimen 02/17/2024 10:0 1 AM EDT 02/17/2024 10:01 AM EDT Narrative [facility] - 02/17/2024 10:01 AM EDT Specimen requisition ordered. ??Separate Pathology report to follow Hayder Graham MD PATHOLOGY/CYTOLOGY ORDERABLES Performing Organization Address City/[facility]/ZIP Co de Phone Number [facility] [place] [address] * (ABNORMAL) BLOOD GAS 2 ARTERIAL (02/17/2024 [...] CARE TEST ORDERABLES [facility] [place] [address] * (ABNORMAL) BLOOD GAS 2 VENOUS (02/17/2024 9:34 AM EDT) pH, Venous 7.22(Criti marquez) 7.32 - 7.42 [facility] Comment:Noted by instrumentation engineering technician. PCO2, Venous 43 41 - 51 mmHg [facility] Comment:Noted by instrumentation engineering technician. PO2, Venous 57(H) 25 - 40 mmHg [facility] Comment:Noted by instrumentation engineering technician. Bicarbonate, Venous 17.1 mmol/L [facility] Comment:Noted by instrumentation engineering technician. Base Excess, Venous -10.6 mmol/L [facility] Comment:Noted by instrumentation engineering technician. Hgb Blood Gas 11.2(L) 13.7 - 16.5 g/dL [facility] Comment:Noted by instrumentation engineering technician. Oxyhemoglobin, Venous 86.5 % [facility] Comment:Noted by instrumentation engineering technician. Carboxyhemoglob in, Venous 0.3 % [facility] Comment: Noted by instrumentation engineering technician. Nonsmokers: 0.5-1.5% COHB Smokers: Variable, but usually less than 10% Toxic: 20-30% COHB Lethal: Greater than 60% COHB Methemoglobin, Venous 0.0 <=1.5 % [facility] Comment:Noted by instrumentation engineering technician. Na Whole Blood 156(H) 135 - 145 mmol/L [facility] Comment:Noted by instrumentation engineering technician. K Whole Blood 5.5(H) 3.5 - 5.0 mmol/L [facility] Comment: Noted by instrumentation engineering technician. Please note: Patients with WBC >100,000 may have falsely elevated Potassium levels. Contact the Clinical Chemistry Laboratory if there are any questions. ICa Whole Blood 1.03(L) 1.15 - 1.33 mmol/L [facility] Comment: Noted by instrumentation engineering technician. Note: ??Total bilirubin higher than 20 mg/dL may lead to falsely low ionized calcium. CL Whole Blood 100 98 - 107 mmol/L [facility] Comment:Noted by instrumentation engineering technician. Gluc Whole Bld 132 65 - 199 mg/dL [facility] Comment: Noted by instrumentation engineering technician. Diabetes: >=200 mg/dL plus symptoms Lactate WB 1.0 0.5 - 2.2 mmol/L [facility] Comment:Noted by instrumentation engineering technician. Blood Gas Source Venous [facility] Blood 02/17/2024 9:34 AM EDT 02/17/2024 9:34 AM EDT Hayder Graham MD POINT OF CARE TEST ORDERABLES [facility] [place] [address] * (ABNORMAL) BLOOD GAS 2 ARTERIAL (02/17/2024 [...] OF CARE TEST ORDERABLES Performing Organization Address [facility] Co de Phone Number [facility] [place] [address] * POCT Glucose (02/17/2024 6:38 AM EDT) Glucose, POC 98 65 - 199 mg/dL [facility] Comment: Supplemental ranges: <140 mg/dL before meals <180 mg/dL all other times of the day Blood 02/17/2024 6:38 AM EDT 02/17/2024 6:38 AM EDT Hayder rGaham MD POINT OF CARE TEST ORDERABLES Performing Organization Address [facility] Co de Phone Number [facility] [place] [address] * Transesophageal Echo/OR (02/17/2024 6:33 AM EDT) [...] RN) 0835 (Given - Provider: Jazlyn Maldonado, COLYB) potassium chloride 10 mEq in sterile water [...] Routine documented in this encounter Care Teams Harness Cutter Relationship Specialty Start Date End Date Aparna Jordan APRN PCP - General Family Medicine 10/21/23 05/26/24 documented as of this encounter
--- OUTSIDE RECORDS SUMMARY | 2024-11-12 09:55 | XMS_ITS | Encounter Summary ---
Author Organization [facility] [place] [address] Care Team Providers Care Load Test Mechanic Name Role Phone Vanessa Christian APRN Primary Care Provider [phone] Encounter Details Date Type Department Care Team [...] PM EST Office Visit Cardiology at [address] [phone] Sheila Johnson APRN [address] [facility] [place] [address] documented as of this encounter Visit Diagnoses Not on filedocumented in this encounter Care Teams Load Test Mechanic Relationship Specialty Start Date End Date Vanessa Christian APRN PCP - General Family Medicine 10/21/23 05/26/24 documented as of this encounter
--- OUTSIDE RECORDS SUMMARY | 2024-11-12 09:55 | XMS_ITS | Encounter Summary ---
Author Organization [facility] Address [facility] [place] [address] Care Team Providers Care Contact Lens Blocker Name Role Phone Vanessa Christian MAURI Primary Care Provider [phone] Encounter Details Date Type Department Care Team (Latest Contact Info) Description 01/09/2024 3:02 PM EDT - 01/09/2024 11:59 PM EDT Hospital Encounter XRay at [address] [place] [address] Zak Farmer MD [facility] [place] [address] Nonrheumatic aortic valve stenosis Discharge Disposition: Home [...] 3:00 PM EST Office Visit Cardiology at [place] [address] [place] [address] Sheila Johnson APRN [address] [facility] [place] [place] [address] documented as of this encounter Procedures Procedure [...] disorders documented in this encounter Care Teams Contact Lens Blocker Relationship Specialty Start Date End Date Vanessa Christian APRN PCP - General Family Medicine 10/21/23 05/26/24 documented as of this encounter
--- OUTSIDE RECORDS SUMMARY | 2024-11-12 09:55 | XMS_ITS | Encounter Summary ---
Author Organization [facility] [place] [address] Care Team Providers Care Buffing Wheel Former Automatic Name Role Phone Victor M Lafleur MD Primary Care Provider [phone] Encounter Details Date Type Department Care Team (Late st Contact Info) Description 09/26/2023 Abstract Cardiology at [address] [phone] Karen Billy, RN Nonrheumatic aortic [...] PM EST Office Visit Cardiology at [address] [phone] Sheila Johnson APRN [address] [place] [address], [facility] CARDIOLOG[facility] [place], [place] [id number] documented as of this encounter Visit Diagnoses Diagnosis Nonrheumatic aortic valve stenosis Aortic valve disorders Nevus of face Benign neoplasm of skin of other and unspecified parts of face documented in this encounter Care Teams Buffing Wheel Former Automatic Relationship Specialty Start Date End Date Victor M Lafleur MD PCP - General 10/02/13 10/20/23 documented as of this encounter
--- OUTSIDE RECORDS SUMMARY | 2024-11-12 09:55 | XMS_ITS | Encounter Summary ---
Author Organization [facility] [place] [address] Care Team Providers Care Title Coordinator Name Role Phone Vanessa Christian APRN Primary Care Provider Encounter Details Date Type Department Care Team (Late st Contact Info) Description 10/21/2023 Abstract Cardiology at [address] [phone] Adam Mayes RN Social History Tobacco Use [...] PM EST Office Visit Cardiology at [address] [phone] Sheila Johnson APRN [address] [facility] [address] documented as of this encounter Visit Diagnoses Not on filedocumented in this encounter Care Teams Title Coordinator Relationship Specialty Start Date End Date Vanessa Christian APRN PCP - General Family Medicine 10/21/23 05/26/24 documented as of this encounter
--- OUTSIDE RECORDS SUMMARY | 2024-11-12 09:55 | XMS_ITS | Encounter Summary ---
Author Organization [facility] [place] [address] Care Team Providers Care Storekeeper Steward Name Role Phone Vanessa Christian Lane DOTSON Primary Care Provider [phone] Encounter Details Date Type Department Care Team (Late st Contact Info) Description 01/09/2024 2:30 PM EDT Clinical Support Same Day [place] [facility] [place] [phone] Social History Tobacco Use Types Packs/Day Years Used Date Smoking Tobacco: Former Cigarettes Smokeless Tobacco: Never Comments:Quit 15 + years ago Alcohol Use Standard Drinks/Week Comments Yes 0 (1 standard drink = 0.6 oz pur e alcohol) rare [facility] Inpatient Questions Answer Date Recorded [...] tube link for a video about [facility] [place] cardiac [...] PM EST Office Visit Cardiology at [address] [phone] Sheila Johnson APRN [address] [place] [address], [facility] [place] [address] documented as of this encounter Visit Diagnoses Not on filedocumented in this encounter Care Teams Storekeeper Steward Relationship Specialty Start Date End Date Vanessa Christian APRN PCP - General Family Medicine 10/21/23 05/26/24 documented as of this encounter
--- OUTSIDE RECORDS SUMMARY | 2024-11-12 09:55 | XMS_ITS | Encounter Summary ---
Author Organization [facility] Address [facility] [place] [address] Care Team Providers Care Toolroom Helper Name Role Phone Vanessa Christian URGENT CARE PHYSICIAN ASSISTANT Primary Care Provider [phone] Reason for Referral * Diagnostic Test (Routine) - Closed Specialty Diagnoses / Procedures Referred By Contac t Referred To Contact Radiology Diagnoses Nonrheumatic aortic valve stenosis Procedures CT Chest wo Contrast (Generic) Louisa Reid PA [facility] [place] [address] [facility] [place] [address] Referral ID Status Reason Start Date Expiration Date V isits Requested Visits Authorized [id number] Closed Specialty Service Requested 01/10/2024 07/11/2025 1 1 Encounter Details Date Type Department Care Team (Late st Contact Info) Description 01/09/2024 Orders [place] [address] Zak Farmer MD [facility] [place] [address] Nonrheumatic aortic valve stenosis Social History Tobacco [...] PM EST Office Visit Cardiology at [address] [phone] Sheila Johnson APRN [address] [facility] [place] [address] documented as of this encounter Results * CT Chest wo Contrast (Generic) (02/03/2024 7:44 AM EDT) [employer] Signature WORKSTATION ID [id number] RAD Anatomical Region Laterality Modality Chest Computed [...] who have questions please contact the health nanny caregiver that requested your imaging first. ? Electronically signed by: Rogerio Wright MD, [facility] ([phone]), at 02/03/2024 10:00 AM Narrative 02/03/2024 10:00 [...] nodule along the minor fissure (series 302 [id number]) and a 8 mm right lower lobe [...] patients who have questions please contactthe health nanny caregiver that requested your imaging first. Electronically signed by: Rogerio Wright MD, [facility]([phone]), at 02/03/2024 10:00 AM Zak Farmer MD IMG CT ORDERABLES documented in this encounter Visit Diagnoses Diagnosis Nonrheumatic aortic valve stenosis Aortic valve disorders Nonrheumatic aortic valve stenosis Aortic valve disorders documented in this encounter Care Teams Toolroom Helper Relationship Specialty Start Date End Date Vanessa Christian APRN PCP - General Family Medicine 10/21/23 05/26/24 documented as of this encounter
--- OUTSIDE RECORDS SUMMARY | 2024-11-12 09:55 | XMS_ITS | Encounter Summary ---
[place] [address] Care Team Providers Care Packing House Laborer Name Role Phone Vanessa Christian MAURI Primary Care Provider [phone] Reason for Visit * Auth/Cert (Routine) Specialty [...] Rima Dickinson MD [facility] [place] [address] [facility] Referral ID Status Reason Start Date Expiration Date Visits Re quested Visits Authorized [id number] 1 1 Encounter Details Date Type Department Care Team (Late st Contact Info) Description 02/03/2024 10:00 AM EDT - 02/03/2024 11:00 AM EDT Surgery Air [place] [address] Saira Lua MD CARDIAC CATHETERIZATION Social History [...] Follow-up Visits Follow up with your manager visual in 2-4 weeks Access Site 'Black and Blue' and tenderness is expected during the first week Call if you noted a mass (lump) greater than the size of a ellis Call Office with any Questions and if you have any of the following Clarence Lane M.D Interventional Sewage Treatment Plant Operator Concrete Inspector #: [phone] * Attachments The following attachments cannot be [...] MD - 02/03/2024 11:48 AM EDT [facility] Interventional Cardiology Adult Pre-Procedure H&P Update: Cardiac Catheterization Karlos Anthony [id number] 1960 Chief Complaint: Aortic stenosis HPI: Mr. [...] is inthe chart Clarence Lane MD Interventional Sewage Treatment Plant Operator 02/03/24 11:48 AM documented in this encounter Miscellaneous Notes * Brief Op Note - Clarence Lane MD - 02/03/2024 12:51 PM EDT Preliminary Cardiac Catheterization Procedure Note: Patient Name: Karlos Anthony : [id number] MR#: [id number] Case Date: 02/03/2024 Concrete Inspector: Surgeon(s) and Role: * Saira Lua [...] 3:00 PM EST Office Visit Cardiology at [place] [address] [place] [phone] Sheila Johnson, MAURI [address] [facility] [place] [address] Scheduled Orders Name Type Priority Associated Diagnoses [...] Modality Other Narrative 02/12/2024 3:47 PM EDT ?[facility] ? Cardiac Catheterization/Intervention Report ? Patient Name: Patenaude, Karlos ? Procedure Date: 02/03/2024 ? A #: [id number] ? Primary Physician: Saira Lua ? Case #: [id number] ? File Name: [id number] ? Catheterization Order Number: [id number] ? [facility]Air Support Control Officer [facility] ? Final Report [place], [place] ? Patient Name: ? Karlos Patenaude ? ID#: ?[id number] ? : ?1960 ? Procedure Date: ? [...] Procedure Note Saira Lua MD - 02/12/2024 [facility] Cardiac Catheterization/Intervention Report Patient Name: Karlos Anthony Procedure Date: 02/03/2024 A #: [id number] Primary Physician: Saira Lua Case #: [id number] File Name: [id number] Catheterization Order Number: [id number] [facility] [place] Patient Name: Karlos Anthony ID#:[id number] :1960 Procedure Date: February 03, 2024 Case [...] (Bezet) 372 ms MUSE SYSTEM Calculated P Milnor 59 degrees MUSE SYSTEM Calculated R Milnor 34 degrees MUSE SYSTEM Calculated T Milnor 63 degrees MUSE SYSTEM INTERPRETATION Sinus bradycardia [...] MD) documented in this encounter Care Teams Packing House Laborer Relationship Specialty Start Date End Date Vanessa Christian, MAURI PCP - General Family Medicine 10/21/23 05/26/24 documented as of this encounter
--- OUTSIDE RECORDS SUMMARY | 2024-11-12 09:55 | XMS_ITS | Encounter Summary ---
Author Organization [facility] Ivana [facility] [place] [address] Care Team Providers Care State Game Protector Name Role Phone Vanessa Christian MAURI Primary Care Provider [phone] Reason for Visit * Auth/Cert (Routine) Specialty [...] MD [facility] [place] [address] [facility] Referral ID Status Reason Start Date Expiration Date Visits Re quested Visits Authorized [id number] 1 1 Encounter Details Date Type Department Care Team (Late st Contact Info) Description 02/17/2024 7:35 AM EDT Anesthesia Event Main Operating Room [facility] [place] [phone] Roman York MD [facility] [place] [address] Anesthesia Record Procedure Summary Procedure Name Responsible [...] by Sadiq Woo RN PIV 02/17/24; 0715; fhrh-bcs-tgsnps catheter system; 18 gauge; cephalic vein (lateral [...] th e electric, gas, oil, or water [employer] threatened to shut off services in [...] Procedure Summary Date: 02/17/24 Room / Location: [facility] OR [address] [place] [address] MAIN OR Anesthesia Start: 734 Anesthesia Stop: 1312 Procedures: ENDOSCOPIC HARVEST VEIN(S) FOR CABG (WRVU 0.31) (Left: Leg) @CABG, USING ARTERIAL GRAFT;SINGLE ARTERIAL GRAFT (WRVU 33.75) (Chest) @CABG, TWO VENOUS GRAFTS & ARTERIAL GRAFT (WRVU 7.93) (Chest) @REPLACE AORTIC VALVE, OPEN, W\CPB, W\PROSTHETIC VALVE (WRVU 41.32) (Chest) Diagnosis: (CAD) Surgeons: aZk Farmer MD Responsible Provider: Roman York MD Anesthesia Type: general ASA Status: 3 All Anesthesia Providers: Anesthesiologist: Roman York MD Vitals Value Taken Time BP Temp 33.5 ??C (92.3 ??F) 02/17/24 1315 Pulse 70 02/17/24 1347 Resp 13 02/17/24 1347 SpO2 98 % 02/17/24 1347 Pain Level Vitals shown include unfiled device data. Patient Location: [facility] Level of Consciousness: Sedated (Pharmacologic/Intentional) [...] 08/14/2023 ??? Nevus of face 09/26/2023 Right taoist No past surgical history on file. Social [...] PM EST Office Visit Cardiology at [address] [place] [address] Sheila Johnson, INSIDE SALES ENGINEER [address] [facility], [place] [address] documented as of this encounter [...] mg documented in this encounter Care Teams State Game Protector Relationship Specialty Start Date End Date Vanessa Christian APRN PCP - General Family Medicine 10/21/23 05/26/24 documented as of this encounter
--- OUTSIDE RECORDS SUMMARY | 2024-11-12 09:55 | XMS_ITS | Encounter Summary ---
Author Organization [facility] [place] [address] Care Team Providers Care Smelter Charger Name Role Phone Vanessa Christian MAURI Primary Care Provider Encounter Details Date Type Department Care Team (Late st Contact Info) Description 01/10/2024 [place] [phone] Lawson Napoles PA [facility] [place] [address] Screening for cardiovascular condition; Aortic valve stenosis, [...] PM EST Office Visit Cardiology at [address] [place] [phone] Sheila Johnson APRN [address], [place] [address] documented as of this encounter Visit Diagnoses Diagnosis Screening for cardiovascular condition Screening for other and unspecified cardiovascular conditions Aortic valve stenosis, etiology of cardiac valve disease unspecified documented in this encounter Care Teams Smelter Charger Relationship Specialty Start Date End Date Vanessa Christian APRN PCP - General Family Medicine 10/21/23 05/26/24 documented as of this encounter
--- OUTSIDE RECORDS SUMMARY | 2024-11-12 09:55 | XMS_ITS | Encounter Summary ---
Author Organization [facility] Address [facility] [place] [address] Care Team Providers Care Regroover Name Role Phone Vanessa Christian MAURI Primary Care Provider [phone] Encounter Details Date Type Department Care Team (Late st Contact Info) Description 02/14/2024 Orders [place] [phone] Zak Farmer MD [facility] CARDIOTHORACIC [place] [address] Coronary artery disease, unspecified vessel or lesion type, unspecified whether angina present, unspecified whether [place] or transplanted heart (Primary Dx) Social History [...] PM EST Office Visit Cardiology at [address] [place] [address] Sheila Johnson A, WEBSITE ADMIN [address], [address] A CARDIOLOGY [place], [place] [phone] documented as of this encounter Results * EKG 12 Lead (03/12/2024 2:35 PM EDT) Ventricular rate 59 BPM MUSE SYSTEM Atrial Rate 59 BPM MUSE SYSTEM P-R Interval 190 ms MUSE SYSTEM QRS Duration 92 ms MUSE SYSTEM Q-T Interval 406 ms MUSE SYSTEM QTC Calculated (Bezet) 401 ms MUSE SYSTEM Calculated P Canadian -12 degrees MUSE SYSTEM Calculated R Canadian 24 degrees MUSE SYSTEM Calculated T Canadian 74 degrees MUSE SYSTEM INTERPRETATION Sinus bradycardia T wave abnormality, consider anterior ischemia Abnormal ECG When compared with ECG of 17-FEB-2024 13:24, ND interval has decreased T wave inversion now evident in Anterior leads Confirmed by Paul Guzman ([id number]) on 03/15/2024 8:36:23 AM MUSE SYSTEM 03/12/2024 2:35 PM EDT 03/15/2024 8:36 AM EDT Zak Farmer MD ECG ORDERABLES MUSE SYSTEM * XR Chest PA & Lateral (Generic) (03/12/2024 1:42 PM EDT) WORKSTATION ID [id number] [facility] Anatomical Region Laterality Modality Chest [...] have questions please contact the health rn transitional care that requested your imaging first. ? Narrative 03/13/2024 8:28 AM EDT EXAMINATION: XR CHEST PA AND LATERAL (GENERIC) CLINICAL HISTORY: s/p cabg eval effusions I25.10, Atherosclerotic heart disease of [place] coronary artery without angina pectoris TECHNIQUE: PA [...] eval effusions I25.10, Atherosclerotic heart disease of [place] coronary artery withoutangina pectoris TECHNIQUE: PA and [...] who have questions please contactthe health rn transitional care that requested your imaging first. Zak Farmer MD IMG DX ORDERABLES documented in this encounter Visit Diagnoses Diagnosis Coronary artery disease, unspecified vessel or lesion type, unspecified whether angina present, unspecified whether [place] or transplanted heart- Primary Coronary artery disease, unspecified vessel or lesion type, unspecified whether angina present, unspecified whether [place] or transplanted heart documented in this encounter Care Teams Regroover Relationship Specialty Start Date End Date Vanesas Christian APRN PCP - General Family Medicine 10/21/23 05/26/24 documented as of this encounter
--- OUTSIDE RECORDS SUMMARY | 2024-11-12 09:55 | XMS_ITS | Encounter Summary ---
Author Organization [facility] Address [facility] Ivana linareseileen [place] [id number] Care Team Providers Care Mash Filter Cloth Changer Name Role Phone Vanessa Christian MAURI Primary Care Provider [phone] Reason for Referral * Consultation (Routine) - Closed Specialty Diagnoses / Procedures Referred By Contac t Referred To Contact Cardiac Surgery Diagnoses Nonrheumatic aortic valve stenosis significant - TAVR ( defers to Card Surg d/t age) Erorl Loya MD [facility] [place] [address] Zak Farmer MD [facility] [place] [address] Referral ID Status Reason Start Date Expiration Date V isits Requested Visits Authorized [id number] Closed Consult, Test & Treat 10/21/2023 10/20/2024 1 1 Reason for Visit * Reason Comments Chest Pain Shortness of Breath Aortic Stenosis Encounter Details Date Type Department Care Team (Late st Contact Info) Description 10/21/2023 1:20 PM EST Office Visit Cardiology at [address] [address] Errol Loya MD [facility] [place] [address] Nonrheumatic aortic valve stenosis Social History Tobacco [...] the meantime will refer to T at [facility] for further evaluation. Logistics and preliminary review [...] the meantime will refer to T at [facility] for further evaluation. Logistics and preliminary review [...] PM EST Office Visit Cardiology at [address] [address] Sheila Johnson APRN [address] [facility] [place] [address] Scheduled Referrals Name Type Priority Associated Diagnoses Order Schedule Amb Referral to Structural Heart Outpatient Referral Routine Nonrheumatic aortic valve stenosis Ordered: 10/21/2023 documented as of this encounter Visit Diagnoses Diagnosis Nonrheumatic aortic valve stenosis Aortic valve disorders documented in this encounter Care Teams Mash Filter Cloth Changer Relationship Specialty Start Date End Date Vanessa Christian APRN PCP - General Family Medicine 10/21/23 05/26/24 documented as of this encounter
--- OUTSIDE RECORDS SUMMARY | 2024-11-12 09:55 | XMS_ITS | Encounter Summary ---
Author Organization [facility] [place] [address] Care Team Providers Care Algologist Name Role Phone Vanessa Christian APRN Primary Care Provider [phone] Encounter Details Date Type Department Care Team [...] PM EST Office Visit Cardiology at [address] [place] [address] Sheila Johnson APRN [address] [facility] [place] [address] documented as of this encounter Visit Diagnoses Not on filedocumented in this encounter Care Teams Algologist Relationship Specialty Start Date End Date Vanessa Christian APRN PCP - General Family Medicine 10/21/23 05/26/24 documented as of this encounter
--- OUTSIDE RECORDS SUMMARY | 2024-11-12 09:55 | XMS_ITS | Encounter Summary ---
Author Organization [facility] [place] [address] Care Team Providers Care Freight Broker Name Role Phone Vanessa Christian MAURI Primary Care Provider [phone] Reason for Visit * Auth/Cert (Routine) Specialty [...] Rima Dickinson MD [facility] [address] [facility] Referral ID Status Reason Start Date Expiration Date Visits Re quested Visits Authorized [id number] 1 1 Encounter Details Date Type Department Care Team (Latest Contact Info) Description 02/03/2024 8:06 AM EDT - 02/03/2024 2:54 PM EDT Hospital Encounter [place] [address] Rima Dickinson MD [facility] [address] Screening for cardiovascular condition; Aortic valve stenosis, [...] lbs Follow-up Visits Follow up with your refinery operator alkylation in 2-4 weeks Access Site 'Black and Blue' and tenderness is expected during the first week Call if you noted a mass (lump) greater than the size of a ellis Call Office with any Questions and if you have any of the following Clarence Lane M.D Interventional Chief Client Officer Telecine Operator #: [phone] * Attachments The following attachments cannot be sent through Care Everywhere. * CAD (Coronary Artery Disease): General Info (Belarusian) * Coronary Angiogram: Post-op (Belarusian) documented in this encounter Medications at Time [...] Lane MD - 02/03/2024 11:48 AM EDT [facility] Interventional Cardiology Adult Pre-Procedure H&P Update: Cardiac Catheterization Karlos Anthony [id number] 1960 Chief Complaint: Aortic stenosis HPI: Mr. [...] inthe chart Clarence Lane MD Interventional Chief Client Officer 02/03/24 11:48 AM documented in this encounter Miscellaneous Notes * Brief Op Note - Clarence Lane MD - 02/03/2024 12:51 PM EDT Preliminary Cardiac Catheterization Procedure Note: Patient Name: Karlos Anthony : [id number] MR#: [id number] Case Date: 02/03/2024 Telecine Operator: Surgeon(s) and Role: * Saira Lua [...] 3:00 PM EST Office Visit Cardiology at [place] [address] [place] [phone] Sheila Johnson APRN [address] [facility] [place] [address] Scheduled Orders Name Type Priority Associated Diagnoses [...] Modality Other Narrative 02/12/2024 3:47 PM EDT ?[facility] ? Cardiac Catheterization/Intervention Report ? Patient Name: Raj, Karlos ? Procedure Date: 02/03/2024 ? A #: [id number] ? Primary Physician: Mogadam, Emad ? Case #: [id number] ? File Name: [id number] ? Catheterization Order Number: [id number] ? [facility] ? Final Report [place], [place] ? Patient Name: ? Karlos Patenaude ? ID#: ?[id number] ? : ?1960 ? Procedure Date: ? [...] Procedure Note Saira Lua MD - 02/12/2024 [facility] Cardiac Catheterization/Intervention Report Patient Name: Karlos Anthony Procedure Date: 02/03/2024 A #: [id number] Primary Physician: Saira Lua Case #: [id number] File Name: [id number] Catheterization Order Number: [id number] [facility] FinalReport [place], [place] Patient Name: Karlos Anthony ID#:[id number] :1960 Procedure Date: February 03, 2024 Case [...] was designated as ASA Class III. The [facility] clinical frailty scale is [...] (Bezet) 372 ms MUSE SYSTEM Calculated P [place] 59 degrees MUSE SYSTEM Calculated R [place] 34 degrees MUSE SYSTEM Calculated T [place] 63 degrees MUSE SYSTEM INTERPRETATION Sinus bradycardia [...] MD) documented in this encounter Care Teams Freight Broker Relationship Specialty Start Date End Date Vanessa Christian APRN PCP - General Family Medicine 10/21/23 05/26/24 documented as of this encounter
--- OUTSIDE RECORDS SUMMARY | 2024-11-12 09:55 | XMS_ITS | Encounter Summary ---
Author Organization [facility] [place] [address] Care Team Providers Care Farm Adviser Name Role Phone Vanessa Christian APRN Primary Care Provider [phone] Encounter Details Date Type Department Care Team (Late st Contact Info) Description 10/21/2023 Abstract Cardiology at [address] [phone] Adam Mayes RN Social History Tobacco Use [...] PM EST Office Visit Cardiology at [address] [address] Sheila Johnson APRN [address] [facility] [place] [address] documented as of this encounter Visit Diagnoses Not on filedocumented in this encounter Care Teams Farm Adviser Relationship Specialty Start Date End Date Vanessa Christian APRN PCP - General Family Medicine 10/21/23 05/26/24 documented as of this encounter
--- OUTSIDE RECORDS SUMMARY | 2024-11-12 09:55 | XMS_ITS | Encounter Summary ---
Author Organization [facility] Address [facility] [place] [address] Care Team Providers Care Eyewear Consultant Name Role Phone Vanessa Christian MAURI Primary Care Provider [phone] Reason for Visit * Consultation (Routine) - Closed Specialty Diagnoses / Procedures Referred By Contac t Referred To Contact Cardiac Surgery Diagnoses Nonrheumatic aortic valve stenosis significant - TAVR ( defers to Card Surg d/t age) Neftali Ernandez MD [facility] [place] [address] Zak Farmer MD [facility] C[place]OTH[place]IC [place] [address] Referral ID Status Reason Start Date Expiration Date V isits Requested Visits Authorized [id number] Closed Consult, Test & Treat 10/21/2023 10/20/2024 1 1 Encounter Details Date Type Department Care Team (Late st Contact Info) Description 01/09/2024 1:40 PM EDT Office [place] [address] Zak Farmer MD [facility] C[place]IOTHORACIC [place] [address] Nonrheumatic aortic valve stenosis Social [...] office. Best personal regards, Zak Farmer MD [phone] In aggregate 55 minutes were spent evaluating [...] 3:00 PM EST Office Visit Cardiology at [place] [address] [place] [address] Sheila Johnson, MAURI [address] [facility] [place] [address] documented as of this encounter Results * [...] questions please contact the health wound care physician that requested your imaging first. [...] have questions please contactthe health wound care physician that requested your imaging first. [...] ORDERABLE S [facility] [place] [address] * Hepatic Function Panel (01/09/2024 2:58 PM [...] ORDERABLE S Performing Organization Address [facility] de Phone Number [facility] [place] [address] * Prothrombin Time (01/09/2024 2:58 PM EDT) [facility] Prothrombin Time 10.6 9.4 - 12.5 [...] ORDERABL ES Performing Organization Address City/[facility] Co de Phone Number [facility] [place] [address] * Type and Screen Future Surgery, [facility] [...] Phone Number [facility] [place] [address] documented in this encounter Visit Diagnoses Diagnosis Nonrheumatic aortic valve stenosis Aortic valve disorders Nonrheumatic aortic valve stenosis Aortic valve disorders documented in this encounter Care Teams Eyewear Consultant Relationship Specialty Start Date End Date Vanessa Christian, MAURI PCP - General Family Medicine 10/21/23 05/26/24 documented as of this encounter
[2024-11-12 09:56] VITALS: BP 155/74; PULSE 60
--- OUTSIDE RECORDS SUMMARY | 2024-11-17 10:28 | XMS_ITS | Encounter Summary ---
Author Organization [facility] Address [facility] [place] [address] Care Team Providers Care Paint Formulator Name Role Phone Vanessa Christian MAURI Primary Care Provider [phone] Encounter Details Date Type Department Care Team (Latest Contact Info) Description 03/12/2024 1:30 PM EDT - 03/12/2024 11:59 PM EDT Hospital Encounter XRay at [address] [place] [address] Coronary artery disease, unspecified vessel or lesion type, unspecified whether angina present, unspecified whether [place] or transplanted heart Discharge Disposition: Home Social History Tobacco Use Types Packs/Day Years Used Date Smoking Tobacco: Former Cigarettes Smokeless Tobacco: Never Comments:Quit 15 + years ago Alcohol Use Standard Drinks/Week Comments Yes 0 (1 standard drink = 0.6 oz pur e alcohol) rare [facility] Utilities Answer Date Recorded In the past 12 months has e [employer], gas, oil, or water [employer] threatened to shut off services in your [...] 3:00 PM EST Office Visit Cardiology at [place] [address] [place] [address] Sheila Johnson, MAURI 580 [facility] [place] [address] documented as of this encounter Procedures Procedure Name Priority Date/Time Associated Diagnosis Comments XR CHEST PA AND LATERAL Routine 03/12/2024 1:42 PM EDT Coronary artery disease, unspecified vessel or lesion type, unspecified whether angina present, unspecified whether [place] or transplanted heart documented in this encounter Results * XR Chest PA & Lateral (Generic) (03/12/2024 1:42 PM EDT) Pathologist [employer] WORKSTATION ID [id number] RAD Anatomical Region Laterality Modality Chest N/A [...] Sanchez MD, [facility] ([phone]), at 03/13/2024 8:28 AM Narrative 03/13/2024 8:28 AM EDT EXAMINATION: XR CHEST PA AND LATERAL (GENERIC) CLINICAL HISTORY: s/p cabg eval effusions I25.10, Atherosclerotic heart disease of [place] coronary artery without angina pectoris TECHNIQUE: PA [...] I25.10, 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 Electronically signed by: Augie Sanchez MD, [facility]([phone]), at 03/13/2024 8:28 AM Zak Farmer MD IMG DX ORDERABLES documented in this encounter Visit Diagnoses Diagnosis Coronary artery disease, unspecified vessel or lesion type, unspecified whether angina present, unspecified whether [place] or transplanted heart documented in this encounter Care Teams Paint Formulator Relationship Specialty Start Date End Date Vanessa Christian APRN PCP - General Family Medicine 10/21/23 05/26/24 documented as of this encounter
--- OUTSIDE RECORDS SUMMARY | 2024-11-17 10:28 | XMS_ITS | Encounter Summary ---
Author Organization [facility] Address [facility] [place] [address] Care Team Providers Care Christmas Tree Farm Worker Name Role Phone Gino Vanessa Lane DOTSON Primary Care Provider [phone] Encounter Details Date Type Department Care Team (Late st Contact Info) Description 02/24/2024 Orders Only Cardiac Surgery [facility] [place] [phone] Trudi Lester APRN [facility] [place] [address] Social History Tobacco Use Types Packs/Day Years Used Date Smoking Tobacco: Former Cigarettes Smokeless Tobacco: Never Comments:Quit 15 + years ago Alcohol Use Standard Drinks/Week Comments Yes 0 (1 standard drink = 0.6 oz pur e alcohol) rare [facility] Utilities Answer Date Recorded In the past 12 months has e [employer], gas, oil, or water [employer] threatened to shut off services in [...] Office Visit Cardiology at [address] [phone] Sheila Johnson APRN [address] [place] [address], [facility] [place] [address] documented as of this encounter Visit Diagnoses Not on filedocumented in this encounter Care Teams Christmas Tree Farm Worker Relationship Specialty Start Date End Date Vanessa Christian APRN PCP - General Family Medicine 10/21/23 05/26/24 documented as of this encounter
--- OUTSIDE RECORDS SUMMARY | 2024-11-17 10:28 | XMS_ITS | Encounter Summary ---
Author Organization [facility] Address [facility] [place] [address] Care Team Providers Care Poker Machine Attendant Name Role Phone Vanessa Christian OFFICE SWEEPER Primary Care Provider [phone] Encounter Details Date Type Department Care Team (Late st Contact Info) Description 03/12/2024 2:40 PM EDT Office [place] [phone] Zak Farmer MD [facility] [place] [address] Coronary artery disease, unspecified vessel or lesion type, unspecified whether angina present, unspecified whether shoshone-paiute or transplanted heart Social History Tobacco Use Types Packs/Day Years Used Date Smoking Tobacco: Former Cigarettes Smokeless Tobacco: Never Comments:Quit 15 + years ago Alcohol Use Standard Drinks/Week Comments Yes 0 (1 standard drink = 0.6 oz pur e alcohol) rare [facility] Utilities Answer Date Recorded In the past 12 months has e [employer], gas, oil, or water [employer] threatened to shut off services in your [...] 2:40 PM EDT To: MD Vanessa Coles, OFFICE SWEEPER Re; Karlos Santa ( 1960) We had [...] office. Best personal regards, Zak Farmer MD [phone] documented in this encounter Plan of Treatment Upcoming Encounters Date Type Department Care Team (Late st Contact Info) Description 11/30/2024 3:00 PM EST Office Visit Cardiology at [place] [address] [place] [address] Sheila Johnson, MAURI [address] [facility], [facility] [place] [address] documented as of this encounter Procedures Procedure Name Priority Date/Time Associated Diagnosis Comments EKG 12-LEAD Routine 03/12/2024 2:35 PM EDT Coronary artery disease, unspecified vessel or lesion type, unspecified whether angina present, unspecified whether shoshone-paiute or transplanted heart documented in this encounter Results * EKG 12 Lead (03/12/2024 2:35 PM EDT) Ventricular rate 59 BPM MUSE SYSTEM Atrial Rate 59 BPM MUSE SYSTEM P-R Interval 190 ms MUSE SYSTEM QRS Duration 92 ms MUSE SYSTEM Q-T Interval 406 ms MUSE SYSTEM QTC Calculated (Bezet) 401 ms MUSE SYSTEM Calculated P [place] -12 degrees MUSE SYSTEM Calculated R [place] 24 degrees MUSE SYSTEM Calculated T [place] 74 degrees MUSE SYSTEM INTERPRETATION Sinus bradycardia T wave abnormality, consider anterior ischemia Abnormal ECG When compared with ECG of 17-FEB-2024 13:24, VT interval has decreased T wave inversion now evident in Anterior leads Confirmed by Paul Guzman ([id number]) on 03/15/2024 8:36:23 AM MUSE SYSTEM 03/12/2024 2:35 PM EDT 03/15/2024 8:36 AM EDT Zak Farmer MD ECG ORDERABLES MUSE SYSTEM documented in this encounter Visit Diagnoses Diagnosis Coronary artery disease, unspecified vessel or lesion type, unspecified whether angina present, unspecified whether shoshone-paiute or transplanted heart documented in this encounter Care Teams Poker Machine Attendant Relationship Specialty Start Date End Date Vanessa Christian APRN PCP - General Family Medicine 10/21/23 05/26/24 documented as of this encounter
--- OUTSIDE RECORDS SUMMARY | 2024-11-17 10:28 | XMS_ITS | Encounter Summary ---
Author Organization [facility] Address [facility] [place] [address] Care Team Providers Care Patient Sitter Name Role Phone Vanessa Christian MAURI Primary Care Provider [phone] Encounter Details Date Type Department Care Team (Latest Contact Info) Description 05/20/2024 Travel Social History Tobacco Use Types Packs/Day Years Used Date Smoking Tobacco: Former Cigarettes Smokeless Tobacco: Never Comments:Quit 15 + years ago Alcohol Use Standard Drinks/Week Comments Yes 0 (1 standard drink = 0.6 oz pur e alcohol) rare [facility] Utilities Answer Date Recorded In the [...] PM EST Office Visit Cardiology at [address] [phone] Sheila Johnson APRN [address] [place] [address], [facility] [place] [address] documented as of this encounter Visit Diagnoses Not on filedocumented in this encounter Care Teams Patient Sitter Relationship Specialty Start Date End Date Vanessa Christian APRN PCP - General Family Medicine 10/21/23 05/26/24 documented as of this encounter
--- OUTSIDE RECORDS SUMMARY | 2024-11-17 10:28 | XMS_ITS | Encounter Summary ---
Author Organization [facility] Address [facility] [place] [address] Care Team Providers Care Electronics Commodity Manager Name Role Phone Vanessa Christian MAURI Primary Care Provider [phone] Encounter Details Date Type Department Care Team [...] PM EST Office Visit Cardiology at [address] [phone] Sheila Johnson APRN [address] [place] [address], [facility] [place] [address] documented as of this encounter Visit Diagnoses Not on filedocumented in this encounter Care Teams Electronics Commodity Manager Relationship Specialty Start Date End Date Vanessa Christian APRN [address] [place] [address] PCP - General Family Medicine 05/27/24 documented as of this encounter
--- OUTSIDE RECORDS SUMMARY | 2024-11-17 10:28 | XMS_ITS | Encounter Summary ---
Author Organization [facility] Address [facility] [place] [address] Care Team Providers Care Ammunition Assembly Laborer Name Role Phone Vanessa Christian MAURI Primary Care Provider [phone] Encounter Details Date Type Department Care Team [...] PM EST Office Visit Cardiology at [address] [phone] Sheila Johnson APRN [address] [place] [address], [facility] [place] [address] documented as of this encounter Visit Diagnoses Not on filedocumented in this encounter Care Teams Ammunition Assembly Laborer Relationship Specialty Start Date End Date Vanessa Christian APRN PCP - General Family Medicine 10/21/23 05/26/24 documented as of this encounter
--- OUTSIDE RECORDS SUMMARY | 2024-11-17 10:28 | XMS_ITS | Referral Summary ---
Author Organization [facility] Address [address] [place] [address] Care Team Providers Care Boat Diesel Motor Mechanic Name Role Phone Vanessa Christian Lane MONCADA Primary Care Provider [phone] Social History Tobacco Use Types Packs/Day Years Used Date Smoking Tobacco: Never Assessed Sex and Gender Information Value Date Recorded Sex Assigned at Not on file Legal Sex Male 22:02 EST Gender Identity Not on file Sexual Orientation Not on file Plan of Treatment Not on file Insurance R Care Teams Boat Diesel Motor Mechanic Relationship Specialty Start Date End Date Vanessa Christian, ANTWAN [address] [place] [phone] PCP - General Family Medicine - Primary Care 10/07/23
--- OUTSIDE RECORDS SUMMARY | 2024-11-17 10:28 | XMS_ITS | Clinical Summary ---
Author Organization [facility] Address [address] [place] [address] Care Team Providers Care Conveyancer Name Role Phone Filidayna Vanessa Sherman NP Primary Care Provider [phone] Social History Tobacco Use Types Packs/Day Years [...] 75+ series) 2034 Insurance [employer] Care Teams Conveyancer Relationship Specialty Start Date End Date Vanessa Christian, ANTWAN [address] [place] [phone] PCP - General Family Medicine - Primary Care 10/07/23
--- OUTSIDE RECORDS SUMMARY | 2024-11-17 10:28 | XMS_ITS | Clinical Summary ---
Author Organization [facility] Address [facility] [place] [address] Care Team Providers Care Chute Greaser Name Role Phone Vanessa Christian Lane DOTSON Primary Care Provider [phone] Allergies No known active allergies Medications Medication [...] meantime will refer to [facility]HT at [facility] for further evaluation. Logistics and preliminary review of TONY were reviewed with patient. - Refer to SHT Hypertension 08/14/2023 Resolved Problems Problem Noted Date Diagnosed Date Resolved Date Nevus of face 09/26/2023 05/27/2024 Overview (09/26/2023): Right jehovah's witness Chest pressure 08/14/2023 10/21/2023 SILVA (dyspnea on [...] PM EST Office Visit Cardiology at [address] [phone] Sheila Johnson APRN [address] [facility], [place] [address] Health Maintenance Due Date Last Done Comments [...] series) 06/07/2024 Medical Devices Implanted Type Area Literacy Teacher Device Identifier Shelf Expiration Date Model / Serial / Lot Cable,Cut,Edg ,Blnt,Ss,3tpr ([id number]) - [id number] Implanted:Qty : 1 on 02/17/2024 by Zak Farmer MD at [facility] IMPLANTS Midline: Chest [employer] - [id number] 09/02/2028 [id number] / / [id number] Valve Coronary Aortic 23mm Tissue Trnscath Biop[employer] Inspiris ([id number]) (Autore[employer]) - [id number] Implanted:Qty : 1 on 02/17/2024 by Zak Farmer MD at [facility] IMPLANTS Heart [employer] - TSAI LI 09/15/2027 [id number] 23MM / [id number] / Advance Directives * Attempt Cardiopulmonary Resuscitation [...] Status decision made by: Patient Care Teams Chute Greaser Relationship Specialty Start Date End Date Vanessa Christian APRN [address] [place] [address] PCP - General Family Medicine 05/27/24
--- OUTSIDE RECORDS SUMMARY | 2024-11-17 10:28 | XMS_ITS | Encounter Summary ---
Author Organization [facility] Address [address] [place] [address] Care Team Providers Care Adult Services Librarian Name Role Phone Filidayna Vanessa Dayna MONCADA Primary Care Provider [phone] Encounter Details Date Type Department Care Team (Late st Contact Info) Description 10/24/2023 Lab Requisition [facility] Pathology & Laboratory Medicine - [address] [address] Oscar Nichole MD [address] [place] [address] [phone] Factitial dermatitis Social History Tobacco Use Types [...] management options, if applicable. 10/28/2023 11:24 EST [facility] Final Diagnosis A. SKIN OF CHRISTIAN, LEFT, SHAVE BIOPSY: - Seborrheic keratosis, pigmented. 10/28/2023 11:24 EST [facility] Attestation By the signature below, the attending physician certifies that they have 1) personally conducted a gross and/or microscopic examination of the described specimen(s), and/or personally interpreted the results of laboratory testing of the described specimen(s), and 2) personally rendered or confirmed the above diagnosis. 10/28/2023 11:24 [facility] at [address] Microscopic Description The stratum corneum is thickened by compact and basketweave orthokeratosis with formation of horn pseudocysts. The epidermis is acanthotic with formation of broad and anastomosing trabeculae. The trabeculae are composed of basaloid keratinocytes with round uniform nuclei. The keratinocytes have a variable amount of melanin pigment. 10/28/2023 11:24 [facility] Clinical History Pigmented 2 cm patch; clinical diagnosis code: L98.1 10/28/2023 11:24 [facility] Gross Description A. Received in formalin labelled with proper patient identification (initials P, A) and left religion is a shave biopsy of an irregular [...] A3. Nora Anderson 10/25/2023 8:47 10/28/2023 11:24 [facility] Performing Lab [facility] 10/28/2023 11:24 [facility] Scanned Images 10/28/2023 11:24 [facility] Tissue SPECIMEN FROM SKIN / Unknown 10/24/2023 14:30 EST 10/24/2023 22:04 EST us Oscar Nichole MD PATHOLOGY ORDERABLES Final Resul t [facility] [address] [place] [address] documented in this encounter Visit Diagnoses Diagnosis Factitial dermatitis Dermatitis factitia (artefacta) documented in this encounter Care Teams Adult Services Librarian Relationship Specialty Start Date End Date Vanessa Christian NP [address] [place] [address] PCP - General Family Medicine - Primary Care 10/07/23 documented as of this encounter
--- OUTSIDE RECORDS SUMMARY | 2024-11-17 10:28 | XMS_ITS | Encounter Summary ---
Author Organization [facility] Address [facility] [place] [address] Care Team Providers Care Customer Success Specialist Name Role Phone Vanessa Christian Lane DOTSON Primary Care Provider [phone] Reason for Visit * Reason Comments Coronary Artery Disease Aortic Stenosis Encounter Details Date Type Department Care Team (Latest Contact Info) Description 05/27/2024 11:00 AM EDT Office Visit Cardiology at [address] [phone] Neftali Ernandez MD [facility] [place] [address] ASCVD (arteriosclerotic cardiovascular disease); Nonrheumatic aortic valve stenosis Social History Tobacco Use Types Packs/Day Years Used Date Smoking Tobacco: Former Cigarettes Smokeless Tobacco: Never Comments:Quit 15 + years ago Alcohol Use Standard Drinks/Week Comments Yes 0 (1 standard drink = 0.6 oz pur e alcohol) rare [facility] Utilities Answer Date Recorded In the past 12 months has e [employer], gas, oil, or water [facility] threatened to shut off services in [...] PM EST Office Visit Cardiology at [address] [phone] Sheila Johnson APRN [address] [facility], [facility] [place] [address] documented as of this encounter Visit Diagnoses Diagnosis ASCVD (arteriosclerotic cardiovascular disease) Unspecified cardiovascular disease Nonrheumatic aortic valve stenosis Aortic valve disorders documented in this encounter Care Teams Customer Success Specialist Relationship Specialty Start Date End Date Vanessa Christian APRN [address] [place] [address] PCP - General Family Medicine 05/27/24 documented as of this encounter
--- OUTSIDE RECORDS SUMMARY | 2024-11-17 10:29 | XMS_ITS | Encounter Summary ---
Author Organization [place] [address] Care Team Providers Care Microsoft Office Instructor Name Role Phone Aparna Jordan MAURI Primary Care Provider [phone] Reason for Visit * Auth/Cert (Routine) Specialty [...] (WRVU 7.93) Hayder Graham MD [facility] [place] [address] [facility] Referral ID Status Reason Start Date Expiration Date Visits Re quested Visits Authorized [id number] 1 1 Encounter Details Date Type Department Care Team (Late st Contact Info) Description 02/17/2024 7:30 AM EDT - 02/17/2024 1:26 PM EDT Surgery [place] [id number] Hayder Graham MD [facility] [place] [address] ENDOSCOPIC HARVEST VEIN(S) FOR CABG (WRVU 0.31) [...] 1-2 weeks. Patient to follow up with Education Courses Sales Representative, Neftali Ernandez MD , in 2 weeks. Patient to follow up with Cardiac Surgeon, Dr. Hayder Graham, with a chest x-ray, EKG, and Echo. Inpatient Provider Contact Information: [facility] Section of Cardiac Surgery [facility] [id number] FAX [phone] Discharge Diagnoses (Hospital Problems) Primary Diagnoses: /CAD [...] insufficiency. He has glaucoma. 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 He has undergone prior herniorrhaphy. 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 Major Procedures/Operations: 02/17/24 s/p avr/cabgx3 CABG x 3 JOSE->LAD SVG->dRCA SVG->OM1 EVH from LLE AVR with a 23 mm Inspiris Bioprosthesis Hospital Course: Karlos Garcia [facility] via the Same [...] and/or the Cardiac Surgery Physician Manager Of Application Development Team may be reached at . [...] Please refer to the card with the [place] Heart [employer] Guidelines for more information. You [...] Dr. Hayder Graham. You may use a [place] Track or treadmill but avoid any pulling [...] should resume a low fat, low cholesterol, [place] Heart Association Diet. Driving: No driving until [...] while being managed by your PCP and/or Education Courses Sales Representative. For future medication refills, please refer to your PCP and/or Education Courses Sales Representative after your discharge from our service. Thank you REMOVE CHEST TUBE SUTURES ON OR AFTER 03/02/24 Home oxygen therapy: N/A Follow up appointments: You should follow up with your PCP, Aparna Jordan APRN, in 1-2 weeks. Our office will schedule an appointment with your Education Courses Sales Representative, Neftali Ernandez MD , in [...] Future Orders Complete By Expires Echocardiogram Transthoracic [54126 CPT(R)] 03/26/2024 09/25/2024 Process Instructions: Scheduling Instructions: Questions: Where will study be performed?: [facility] Does the patient have Congenital Heart Disease?: Does patient require sedation?: Sedation rationale: XR Chest PA & Lateral (Generic) [25873 35761 Custom] 03/26/2024 09/25/2024 Process Instructions: Scheduling Instructions: Questions: Portable exam?: Reason for exam and clinical history: s/p avr/cabg Clinical information / jerome questions for radiologist: Stat read required?: Date of injury if applicable: Requested Time: Where will study be performed?: [facility] Radiology Referral to Cardiac Rehab [DGX214 Custom] As directed Process Instructions: If no [...] to Home Health. 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 [address] [place] [address] RN orders: Cardiopulmonary assessment, incisional assessment, assess [...] issues please call the Cardiology Office at [phone] FOR MEDICARE ONLY: (please delete this section [...] [facility] Section of Cardiac Surgery [facility] [id number] FAX [phone] Date: 02/24/2024 CC: Aparna Jordan, MAURI Jordan, Aparna Sherman APRN [address] [place] [address] documented in this encounter Discharge Instructions * [...] and/or the Cardiac Surgery Physician Manager Of Application Development Team may be reached at . [...] Please refer to the card with the [place] Heart [employer] Guidelines for more information. You [...] Dr. Hayder Graham. You may use a [place] Track or treadmill but avoid any pulling [...] should resume a low fat, low cholesterol, [place] Heart [employer] Diet. Driving: No driving until [...] while being managed by your PCP and/or Education Courses Sales Representative. For future medication refills, please refer to your PCP and/or Education Courses Sales Representative after your discharge from our service. Thank you REMOVE CHEST TUBE SUTURES ON OR AFTER 03/02/24 Home oxygen therapy: N/A Follow up appointments: You should follow up with your PCP, Aparna Jordan APRN, in 1-2 weeks. Our office will schedule an appointment with your Education Courses Sales Representative, Neftali Ernandez MD , in [...] 0600 and on the weekends please page [phone]. * Eric Barahona PA - 02/23/2024 9:27 [...] 0600 and on the weekends please page [phone]. * Tiffanie Owens, LEGAL BILLING ANALYST - 02/22/2024 2:48 PM EDT Physical Therapy [...] d/c for 10 days. 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 He drives. He works Precautions/Special Considerations: [...] LRAD and supervision Time IN / OUT: 7582-9733 Total Time: 30 minutes; TEFx2 Tiffanie Owens Pager: [phone] Physical Therapy Inpatient Rehabilitation Department * Romeo [...] 0600 and on the weekends please page [phone]. * Kelley Hinson LEGAL BILLING ANALYST - 02/21/2024 10:15 AM EDT Physical [...] d/c for 10 days. 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 He drives. He works Precautions/Special Considerations: [...] LRAD and supervision Time IN / OUT: 6636-9977 Total Time: 25 minutes; TEF 2 Kelley Hinson PTA Pager: [phone] Physical Therapy Inpatient Rehabilitation Department * Louisa [...] 0600 and on the weekends please page [phone]. * Kelley Hinson PTA - 02/20/2024 3:32 [...] at that time Kelley Hinson PTA Pager: [phone] Physical Therapy Inpatient Rehab Department * Louisa [...] 0600 and on the weekends please page [phone]. * Maris Benavides, PT - 02/19/2024 11:22 [...] d/c for 10 days. 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 He drives. He works. Precautions/Special Considerations: [...] outlined inthis evaluation. MARIS BENAVIDES, PT Pager: [phone] Physical Therapy Inpatient Rehabilitation Department Time IN / OUT: 3809-4654 Total Time: 38 (eval) minutes; * Antonio [...] 0600 and on the weekends please page [phone]. * Minnie Begum PA - 02/18/2024 8:25 [...] 0600 and on the weekends please page [phone]. * Kim Ha RCP - 02/17/2024 2:25 [...] plan since last visit. Hayder Graham MD [phone] Source Note - Hayder Graham MD - [...] given written informed consent. Hayder Graham MD [phone] * Hayder Graham MD - 02/17/2024 7:00 [...] given written informed consent. Hayder Graham MD [phone] documented in this encounter Miscellaneous Notes * [...] for follow-up Home Health & Hospice, [address] [place] [address] Cardiac Rehab, [address] [place] [address] Transportation: family or friend will provide Functional status prior to admission: Independent Home Environment: Others in the home: alone. Current Living Arrangements: home/apartment/condo. Accessibility Concerns:a few steps to enter 1 floor home. Current Functional Ability: Assistive Person and Equipment DME used at home: none DME Needed at Discharge: N/A Patient is insured through: Primary Insurance: [employer] Payor: [facility] / Plan: [facility] PPO / Product Type: [...] as Appropriate) * Plan of Care - Inrgid Menjivar RN - 02/22/2024 6:03 PM EDT [...] pain managed with scheduled Tylenol. Worked with [employer]. Ambulated in the roque multiple times during [...] anticipated Patient is insured through: Primary Insurance: [facility] Payor: [facility] / Plan: [facility] PPO / Product Type: [...] Services: Physical Therapy, Registered Nurse Agency Referrals: [facility] [address] [place] [address] Transportation: family or friend will provide Barriers to discharge: Discharge planning Plan going forward: Service Care Management will continue to follow and assist with discharge planning and coordination of care as indicated. Anticipated Date of Discharge: 02/22/2024 Rhett Bell RN RN/CM - Cellphone: [phone] Pager: [phone] Covering Service RN/CM * Plan of Care [...] care in [place] must abide by [place] law. The hierarchy [...] (i) The agent with financial power of employee benefits attorney or a conservator appointed in accordance [...] In the past 12 months has the [employer], gas, oil, or water [employer] threatened to shut off services in your [...] as: [address] [facility] [address] Physical address: [address] [facility], [address] Social & Family Supports: All names listed [...] Information: none noted Health/Prescription Coverage: Primary Insurance: [facility] Payor: [facility] / Plan: [facility] PPO / Product Type: *No Product type* / Secondary Insurance: N/A ; Prescription Coverage: Yes Preferred Pharmacy: [id number] [address] [place] Status: Patient is a : No Primary Care Provider confirmed: Aparna Jordan, MAURI [phone] Patient/Caregiver Goals of Treatment: dc to home Potential Needs for Transition of Care: home health care Agency Referrals: I have met with the patient to: discuss discharge planning needs. provide the [facility], Office of Care Management letter from the Director Of Strategic Alliances pertaining to rehab referrals. provide a letter [...] Rating handout. They have requested referrals to: [facility] [address] [place] [address] Note routed to a Hull Line Crew Member who will communicate referrals to facilities and [...] Reina Greene RN CM, BSN, CMGT-BC Ext [phone] * Plan of Care - Binta Trinidad [...] Operative Note Patient Name: Karlos Garcia : [id number] MR#: [id number] Case Date: 02/17/2024 Surgeon: Surgeon(s) and Role: * Hayder Graham MD - Primary * Neftali Menon PA - Physician Manager Of Application Development Preoperative diagnosis: CAD Postoperative diagnosis: CAD, [...] Drains: Mediastinal and Left pleural Disposition: [facility] Condition: doing well without problems Attestation: Case Date: 02/17/2024 I performed this procedure without the involvement of a resident. HAYDER GRAHAM MD 02/17/2024 * Op Note - Hayder Graham MD - 02/17/2024 8:20 AM EDT [facility] Operative Note Patient Name: Karlos Garcia : [id number] MR#: [id number] Case Date: 02/17/2024 Surgeon: Surgeons and Role: * Hayder Graham MD - Primary * Neftali Menon PA - Physician Manager Of Application Development Preoperative diagnosis: CAD Postoperative diagnosis: CAD, [...] Drains: Mediastinal and Left pleural Disposition: [facility] Procedure Description: The patient was brought [...] PM EST Office Visit Cardiology at [address] [address] Sheila Johnson, MAURI [address] [facility] [place] [address] Scheduled Orders Name Type Priority Associated Diagnoses [...] Aortic Valve Open W Cardiopulmonary Bypass Homogrf/Stent (17101) Yes 02/17/2024 7:28 AM EDT CAD Cabg, Artery-Vein, Two (85708) Yes 02/17/2024 7:28 AM EDT CAD Cabg, Arterial, Single (26852) Yes 02/17/2024 7:28 AM EDT CAD Endoscopy W/Video-Asst Vein [place], Cabg (98869) Yes 02/17/2024 7:28 AM EDT CAD POCT [...] MD CHEMISTRY ORDERABLE S [facility] [place] [address] * (ABNORMAL) Basic Metabolic Panel (non-fasting) (02/23/2024 [...] Carpio MD CHEMISTRY ORDERABLES [facility] [place] [address] * Potassium (02/22/2024 4:30 AM EDT) Potassium [...] MD CHEMISTRY ORDERABLE S [facility] [place] [address] * (ABNORMAL) Basic Metabolic Panel (non-fasting) (02/21/2024 [...] - 31 [facility] Comment:Add-on request. Samwilly le too [...] MD CHEMISTRY ORDERABLES Performing Organization Address City/[facility]/ZIP Co de Phone Number [facility] [place] [address] * Lactate, whole blood, send to lab ([facility]) (02/21/2024 9:45 AM EDT) [facility] Lactate WB 2.0 0.5 - 2.2 mmol/L [facility] Blood 02/21/2024 9:45 AM EDT 02/21/2024 9:52 AM EDT Narrative Resulting Agency Comment Spec In Lab Hayder Graham MD CHEMISTRY ORDERABLE S Performing Organization Address [facility] Co de Phone Number [facility] [place] [address] * (ABNORMAL) Hepatic Function Panel (02/21/2024 9:45 AM EDT) [facility] Protein, Total 5.7(L) 6.1 - 8.0 [...] MD CHEMISTRY ORDERABLE S [facility] [place] [address] * Lipase (02/21/2024 9:45 AM EDT) Lipase 56 0 - 60 unit/L [facility] Blood 02/21/2024 9:45 AM EDT 02/21/2024 9:52 AM EDT Narrative Resulting Agency Comment Spec In Lab Hayder Graham MD CHEMISTRY ORDERABLE S Performing Organization Address City/[facility]/ZIP Co de Phone Number [facility] [place] [address] * Amylase (02/21/2024 9:45 AM EDT) Amylase 69 28 - 100 unit/L [facility] Blood 02/21/2024 9:45 AM EDT 02/21/2024 9:52 AM EDT Narrative Resulting Agency Comment Spec In Lab Hayder Graham MD CHEMISTRY ORDERABLE S Performing Organization Address [facility] Co de Phone Number [facility] [place] [address] * Potassium (02/21/2024 3:08 AM EDT) Potassium [...] CHEMISTRY ORDERABLE S Performing Organization Address City/[facility]/ZIP Co de Phone Number [facility] [place] [address] * XR Chest PA & Lateral (Generic) (02/20/2024 10:19 AM EDT) WORKSTATION ID [id number] RAD Anatomical Region Laterality Modality Chest N/A [...] Rogerio Cruz MD, [facility] ??([phone]), at 02/20/2024 1:11 PM Narrative 02/20/2024 1:11 PM EDT EXAMINATION: XR CHEST PA AND LATERAL (GENERIC) CLINICAL HISTORY: s/p AVR/CABGx3 TECHNIQUE: PA and lateral views of the chest COMPARISON: 02/17/2024 FINDINGS: Support devices: Interval removal of Crary-Kaila catheter, endotracheal tube and mediastinal chest tubes The cardiac silhouette is stable status post median sternotomy, CABG and aortic valve replacement. There are small pleural effusions. No pneumothorax. Procedure Note Rogerio Cruz MD - 02/20/2024 EXAMINATION: XR CHEST PA AND LATERAL (GENERIC) CLINICAL HISTORY: s/p AVR/CABGx3 TECHNIQUE: PA and lateral views of the chest COMPARISON: 02/17/2024 FINDINGS: Support devices: Interval removal of Crary-Kaila catheter, endotracheal tubeand mediastinal chest tubes The [...] EDT) Pathologist [facility] Plat estimate Decreased [facility] RBC Morphology Normal [facility] Blood 02/20/2024 4:23 AM EDT 02/20/2024 4:42 AM EDT Narrative Resulting Agency Comment Spec In Lab Minnie FRENCH HEMATOLOGY CECILIO ALEMAN [facility] [place] [address] * (ABNORMAL) Differential, Automated (02/20/2024 4:23 AM EDT) Pathologist [facility] Neutrophil % 81.7 % [facility] Neutrophil Absolute 10.37(H) 1.70 - 6.10 x10(3)/mc L [facility] Lymph % 7.4 % [facility] Lymphocytes Abs 0.9 0.9 - 3.2 x10(3)/mc L [facility] Monocyte % 9.7 % [facility] Monocyte Abs 1.2(H) 0.3 - 0.9 x10(3)/mc L [facility] Eos % 0.1 % [facility] Eosinophils Abs 0.0 0.0 - 0.4 x10(3)/mc L [facility] Basophil % 0.2 % [facility] [...] FRENCH HEMATOLOGY CECILIO ALEMAN [facility] [place] [address] * (ABNORMAL) Hemogram (02/20/2024 4:23 AM EDT) [...] [facility] NRBC% auto 0.0 % [facility] NRBC Absolute 0.000 0.000 - 0.000 x10(3)/mc L [facility] Blood 02/20/2024 4:23 AM EDT 02/20/2024 4:42 AM EDT Narrative Resulting Agency Comment Spec In Lab Minnie FRENCH HEMATOLOGY CECILIO ALEMAN [facility] [place] [address] * (ABNORMAL) Basic Metabolic Panel (non-fasting) (02/20/2024 4:23 AM EDT) Glucose 113 65 - 199 mg/dL [facility] Comment:Diabetes: >=200 mg/d L plus symptoms Blood Urea Nitrogen 20 10 - 20 mg/dL [facility] Comment:result rechecked-[place] Creatinine 0.71(L) 0.80 - 1.50 mg/dL [facility] [...] ORDERABLE S Performing Organization Address [facility] Co de Phone Number [facility] [place] [address] * Potassium (02/19/2024 3:57 AM EDT) Potassium [...] ORDERABLE S Performing Organization Address [facility]/ZIP Co de Phone Number [facility] [place] [address] * POCT Glucose (02/18/2024 8:24 AM EDT) Glucose, POC 157 65 - 199 mg/dL [facility] Comment: Supplemental ranges: <140 mg/dL before meals <180 mg/dL all other times of the day Blood 02/18/2024 8:24 AM EDT 02/18/2024 8:24 AM EDT Hayder Graham MD POINT OF CARE TEST ORDERABLES [facility] [place] [address] * Scan, Peripheral Blood (02/18/2024 1:40 AM EDT) Plat estimate Decreased [facility] RBC Morphology Normal [facility] Blood 02/18/2024 1:40 AM EDT 02/18/2024 1:56 AM EDT Narrative Resulting Agency Comment Spec In Lab Neftali FRENCH HEMATOLOGY ORDER OLE Performing Organization Address City/[facility]/ZIP Co de Phone Number [facility] [place] [address] * (ABNORMAL) Differential, Automated (02/18/2024 1:40 AM EDT) [facility] Neutrophil % 87.1 % [facility] Neutrophil Absolute 15.03(H) 1.70 - 6.10 x10(3)/mc L [facility] Lymph % 3.0 % [facility] Lymphocytes Abs 0.5(L) 0.9 - 3.2 x10(3)/mc L [facility] Monocyte % 9.1 % [facility] Monocyte Abs 1.6(H) 0.3 - 0.9 x10(3)/mc L [facility] Eos % 0.0 % [facility] Eosinophils Abs 0.0 0.0 - 0.4 x10(3)/mc L [facility] Basophil % 0.2 % [facility] [...] FRENCH HEMATOLOGY ORDER OLE [facility] [place] [address] * (ABNORMAL) Hemogram (02/18/2024 1:40 AM EDT) [...] [facility] NRBC% auto 0.0 % [facility] NRBC Absolute 0.000 0.000 - 0.000 x10(3)/mc L [facility] Blood 02/18/2024 1:40 AM EDT 02/18/2024 1:56 AM EDT Narrative Resulting Agency Comment Spec In Lab Neftali FRENCH HEMATOLOGY ORDER OLE [facility] [place] [address] * (ABNORMAL) Basic Metabolic Panel (non-fasting) (02/18/2024 [...] MD CHEMISTRY ORDERABLE S [facility] [place] [address] * (ABNORMAL) Troponin (02/18/2024 1:40 AM EDT) [...] [facility] Test Catalog Reference: Fourth [place] Definition of Myocardial Infarction. Journal of the [place] College of Cardiology 2018;72:0484-3938 Blood 02/18/2024 1:40 AM EDT 02/18/2024 1:56 AM EDT Narrative Resulting Agency Comment Spec In Lab Hayder Graham MD CHEMISTRY ORDERABLE S Performing Organization Address [facility] Co de Phone Number [facility] [place] [address] * POCT Glucose (02/17/2024 8:13 PM EDT) Glucose, POC 142 65 - 199 mg/dL [facility] Comment: Supplemental ranges: <140 mg/dL before meals <180 mg/dL all other times of the day Blood 02/17/2024 8:13 PM EDT 02/17/2024 8:13 PM EDT Hayder Graham MD POINT OF CARE TEST ORDERABLES Performing Organization Address [facility] Co de Phone Number [facility] [place] [address] * POCT Glucose (02/17/2024 5:42 PM EDT) Glucose, POC 160 65 - 199 mg/dL [facility] Comment: Supplemental ranges: <140 mg/dL before meals <180 mg/dL all other times of the day Blood 02/17/2024 5:42 PM EDT 02/17/2024 5:42 PM EDT Hayder Graham MD POINT OF CARE TEST ORDERABLES Performing Organization Address [facility]/ZIP Co de Phone Number [facility] [place] [address] * Hemoglobin (02/17/2024 5:42 PM EDT) Hemoglobin 13.7 13.7 - 16.5 g/dL [facility] Blood 02/17/2024 5:42 PM EDT 02/17/2024 6:10 PM EDT Narrative Resulting Agency Comment Spec In Lab Hayder Graham MD HEMATOLOGY ORDERABL ES Performing Organization Address [facility] Co de Phone Number [facility] [place] [address] * Potassium (02/17/2024 5:42 PM EDT) Potassium [...] ORDERABLE S Performing Organization Address [facility] Co de Phone Number [facility] [place] [address] * (ABNORMAL) BLOOD GAS 2 ARTERIAL (02/17/2024 [...] [facility] FIO2 Art 40 % [facility] PF Ratio Art 195 [facility] Blood 02/17/2024 4:18 PM EDT 02/17/2024 4:18 PM EDT Hayder Graham MD POINT OF CARE TEST ORDERABLES Performing Organization Address City/State/[facility] Co de Phone Number [facility] [place] [address] * XR Chest One View (02/17/2024 1:44 PM EDT) [employer] WORKSTATION ID [id number] RAD Anatomical Region Laterality Modality Chest N/A Digital Radiogra phy Impressions 02/17/2024 2:12 PM EDT 1. ??No definite pleural fluid collection or pneumothorax. 2. ??Right IJ Crary-Kaila catheter tip terminates in a descending branch [...] Denzel Hankins MD, [facility] ??([phone]), at 02/17/2024 2:12 PM Narrative 02/17/2024 2:12 PM EDT EXAMINATION: XR CHEST ONE VIEW CLINICAL HISTORY: s/p avr/cabg eval effusions TECHNIQUE: 1 view of the chest COMPARISON: Chest x-ray 01/09/2024, chest CT 02/03/2024 FINDINGS: ET tube tip terminates 5.2 cm above the carlos. Right IJ Crary-Kaila catheter tip terminates in a descending branch [...] 5.2 cm above the carlos. Right IJ Crary-Ganzcatheter tip terminates in a descending branch of [...] fluid collection or pneumothorax. 2. Right IJ Crary-Kaila catheter tip terminates in a descending branch [...] Denzel Hankins MD, [facility]([phone]), at 02/17/2024 2:12 PM Hayder Graham MD [...] [facility] FIO2 Art 100 % [facility] PF Ratio Art 320 [facility] Blood 02/17/2024 1:31 PM EDT 02/17/2024 1:31 PM EDT Hayder Graham MD POINT OF CARE TEST ORDERABLES [facility] [place] [address] * (ABNORMAL) Coox2 (02/17/2024 1:21 PM EDT) [...] OF CARE TEST ORDERABLES [facility] [place] [address] * (ABNORMAL) BLOOD GAS 2 ARTERIAL (02/17/2024 [...] OF CARE TEST ORDERABLES Performing Organization Address [facility] Co de Phone Number [facility] [place] [address] * (ABNORMAL) Fibrinogen (02/17/2024 12:10 PM EDT) [...] MD HEMATOLOGY ORDERABLE S Performing Organization Address [facility] Co de Phone Number [facility] [place] [address] * (ABNORMAL) Thrombin time (02/17/2024 12:10 PM [...] MD HEMATOLOGY ORDERABLE S Performing Organization Address [facility] Co de Phone Number [facility] [place] [address] * APTT (02/17/2024 12:10 PM EDT) Partial [...] MD HEMATOLOGY ORDERABLE S Performing Organization Address [facility]/ZIP Co de Phone Number [facility] [place] [address] * (ABNORMAL) Prothrombin Time (02/17/2024 12:10 PM [...] MD HEMATOLOGY ORDERABLE S [facility] [place] [address] * (ABNORMAL) Hemogram (02/17/2024 12:10 PM EDT) [...] [facility] NRBC% auto 0.0 % [facility] NRBC Absolute 0.000 0.000 - 0.000 x10(3)/mc L [facility] Blood 02/17/2024 12:1 0 PM EDT 02/17/2024 12:19 PM EDT Narrative Resulting Agency Comment Spec In Lab Tara York MD HEMATOLOGY ORDERABLE S [facility] [place] [address] * (ABNORMAL) BLOOD GAS 2 ARTERIAL (02/17/2024 [...] mmol/L [facility] Comment: Noted by instrumentation engineer. [...] OF CARE TEST ORDERABLES [facility] [place] [address] * (ABNORMAL) BLOOD GAS 2 ARTERIAL (02/17/2024 [...] mmol/L [facility] Comment: Noted by instrumentation engineer. [...] OF CARE TEST ORDERABLES Performing Organization Address [facility]/ZIP Co de Phone Number [facility] [place] [address] * (ABNORMAL) Hemoglobin and Hematocrit, blood (02/17/2024 [...] HEMATOLOGY ORDERABL ES Performing Organization Address City/[facility]/ZIP Co de Phone Number [facility] [place] [address] * (ABNORMAL) Platelet count (02/17/2024 11:04 AM EDT) Platelet 106(L) 145 - 357 x10(3)/mc L [facility] Immature Plt % 1.6 0.0 - 7.4 % [facility] Comment: Limitation of the Immature Platelet Fraction (IPF)-May be less reliable when the platelet count is less than 94v370/uL due to statistical imprecision. The IPF value [...] in a decreased state of production. References: [employer] The Clinical Value of the Immature Platelet Fraction (IPF) in Cell Recovery Document Number [id number] 03/2011 [employer] The Role of the Immature Platelet Fraction (IPF) in the Differential Diagnosis of Thrombocytopenia, Document [id number] V002/15/14 P002/17 Blood 02/17/2024 11:0 4 AM EDT 02/17/2024 11:12 AM EDT Narrative Resulting Agency Comment Spec In Lab Hayder Graham MD HEMATOLOGY ORDERABL ES Performing Organization Address City/State/[facility] Co de Phone Number [facility] [place] [address] * (ABNORMAL) Fibrinogen (02/17/2024 11:04 AM EDT) [...] MD HEMATOLOGY ORDERABL ES [facility] [place] [address] * (ABNORMAL) BLOOD GAS 2 ARTERIAL (02/17/2024 [...] OF CARE TEST ORDERABLES [facility] [place] [address] * (ABNORMAL) BLOOD GAS 2 ARTERIAL (02/17/2024 [...] Co de Phone Number [facility] [place] [address] * Surgical Pathology Report (02/17/2024 10:01 AM EDT) Final Diagnosis [id number] ? Location: [facility]; [facility] [place]; The signing pathologist has (i) examined the relevant preparation(s) for the specimen(s) and (ii) rendered or confirmed the diagnosis(es). . ?Surgical Pathology DIAGNOSIS Aortic valve leaflets, excision: Valve leaflets with myxoid degeneration, nodular fibrosis and dystrophic calcifications. Electronically signed by: ?Lindsay FERNANDEZ, Livier Gonzalez Verified: ??02/24/2024 13:49 ??Pathologist Performed at: ??-[facility] Dept. of Pathology, [place] [address] Director Of Strategic Alliances: Job Brewer MD, FCAP, ??CLIA Certificate: [id number] SPECIMEN(S) SUBMITTED A - Aortic Valve Leaflets, [...] Processing Blocks submitted for decalcification: A1. Fruit Grader sections in 1 cassette labeled A1. ??ajw 02/24/2024 1:49 PM EDT [facility] AORTIC STRUCTURE / Unknown 02/17/2024 10:01 AM EDT 02/17/2024 10:01 AM EDT Hayder Graham MD PATHOLOGY/CYTOLOGY ORDERABLES Performing Organization Address City/[facility]/ZIP Co de Phone Number [facility] [place] [address] * Specimen to Pathology (02/17/2024 10:01 AM EDT) AP Specimen 02/17/2024 10:0 1 AM EDT 02/17/2024 10:01 AM EDT Narrative [facility] - 02/17/2024 10:01 AM EDT Specimen requisition ordered. ??Separate Pathology report to follow Hayder Graham MD PATHOLOGY/CYTOLOGY ORDERABLES Performing Organization Address City/[facility]/ZIP Co de Phone Number [facility] [place] [address] * (ABNORMAL) BLOOD GAS 2 ARTERIAL (02/17/2024 [...] OF CARE TEST ORDERABLES [facility] [place] [address] * (ABNORMAL) BLOOD GAS 2 VENOUS (02/17/2024 9:34 AM EDT) pH, Venous 7.22(Criti marquez) 7.32 - 7.42 [facility] Comment:Noted by instrumentation engineer. PCO2, Venous 43 41 - 51 mmHg [facility] Comment:Noted by instrumentation engineer. PO2, Venous 57(H) 25 - 40 mmHg [facility] Comment:Noted by instrumentation engineer. Bicarbonate, Venous 17.1 mmol/L [facility] Comment:Noted by instrumentation engineer. Base Excess, Venous -10.6 mmol/L [facility] Comment:Noted by instrumentation engineer. Hgb Blood Gas 11.2(L) 13.7 - 16.5 g/dL [facility] Comment:Noted by instrumentation engineer. Oxyhemoglobin, Venous 86.5 % [facility] Comment:Noted by instrumentation engineer. Carboxyhemoglob in, Venous 0.3 % [facility] Comment: Noted by instrumentation engineer. Nonsmokers: 0.5-1.5% COHB Smokers: Variable, but usually less than 10% Toxic: 20-30% COHB Lethal: Greater than 60% COHB Methemoglobin, Venous 0.0 <=1.5 % [facility] Comment:Noted by instrumentation engineer. Na Whole Blood 156(H) 135 - 145 mmol/L [facility] Comment:Noted by instrumentation engineer. K Whole Blood 5.5(H) 3.5 - 5.0 mmol/L [facility] Comment: Noted by instrumentation engineer. Please note: Patients with WBC >100,000 may have falsely elevated Potassium levels. Contact the Clinical Chemistry Laboratory if there are any questions. ICa Whole Blood 1.03(L) 1.15 - 1.33 mmol/L [facility] Comment: Noted by instrumentation engineer. Note: ??Total bilirubin higher than 20 mg/dL may lead to falsely low ionized calcium. CL Whole Blood 100 98 - 107 mmol/L [facility] Comment:Noted by instrumentation engineer. Gluc Whole Bld 132 65 - 199 mg/dL [facility] Comment: Noted by instrumentation engineer. Diabetes: >=200 mg/dL plus symptoms Lactate WB 1.0 0.5 - 2.2 mmol/L [facility] Comment:Noted by instrumentation engineer. Blood Gas Source Venous [facility] Blood 02/17/2024 9:34 AM EDT 02/17/2024 9:34 AM EDT Hayder Graham MD POINT OF CARE TEST ORDERABLES [facility] [place] [address] * (ABNORMAL) BLOOD GAS 2 ARTERIAL (02/17/2024 [...] OF CARE TEST ORDERABLES Performing Organization Address [facility] Co de Phone Number [facility] [place] [address] * POCT Glucose (02/17/2024 6:38 AM EDT) Glucose, POC 98 65 - 199 mg/dL [facility] Comment: Supplemental ranges: <140 mg/dL before meals <180 mg/dL all other times of the day Blood 02/17/2024 6:38 AM EDT 02/17/2024 6:38 AM EDT Hayder Graham MD POINT OF CARE TEST ORDERABLES Performing Organization Address [facility] Co de Phone Number [facility] [place] [address] * Transesophageal Echo/OR (02/17/2024 6:33 AM EDT) [...] Referring Physician: APARNA JORDAN Procedure Note Tara Yrok MD - 02/17/2024 Version: 1 Name: KARLOS [...] Provider: Mishel Merrill, RN)2325 (Given - Provider: Otsi Crook, COLBY) 0930 (Not Given - Provider: [...] Routine documented in this encounter Care Teams [employer] Office Instructor Relationship Specialty Start Date End Date Aparna Jordan APRN PCP - General Family Medicine 10/21/23 05/26/24 documented as of this encounter
--- OUTSIDE RECORDS SUMMARY | 2024-11-17 10:29 | XMS_ITS | Encounter Summary ---
[place] [address] Care Team Providers Care Client Support Manager Name Role Phone Aparna Jordan MAURI Primary Care Provider [phone] Reason for Referral * Diagnostic Test (Routine) - New Request Specialty Diagnoses / Procedures Referred By Contac t Referred To Contact Cardiology Diagnoses S/P AVR Procedures Echocardiogram Transthoracic Neftali Menon PA [facility] [place] [address] [facility] [place] [address] Referral ID Status Reason Start Date Expiration Date Visits Requested Visits Authorized [id number] New Request Specialty Service Requested 02/24/2024 02/23/2025 1 1 * Consultation (Routine) - Closed Specialty Diagnoses / Procedures Referred By Contac t Referred To Contact Cardiology Diagnoses S/P AVR Hayder Graham MD [facility] [place] [address] Cardiac Rehab, [facility] [address] [place] [address] [place] [address] Referral ID Status Reason Start Date Expiration Date V isits Requested Visits Authorized [id number] Closed Consult, Test & Treat 02/24/2024 08/22/2024 36 36 * Home Health Care (Routine) - Closed Specialty Diagnoses / Procedures Referred By Sixto mendoza Referred To Contact Diagnoses S/P AVR Hayder Graham MD [facility] [place] [address] Referral ID Status Reason Start Date Expiration Date V isits Requested Visits Authorized [id number] Closed Consult, Test & Treat 02/24/2024 08/22/2024 [...] ARTERIAL GRAFT (WRVU 7.93) Hayder Graham MD [facility] [place] [address] [facility] Referral ID Status Reason Start Date Expiration Date Visits Re quested Visits Authorized [id number] 1 1 Encounter Details Date Type Department Care Team (Latest Contact Info) Description 02/17/2024 5:43 AM EDT - 02/24/2024 11:23 AM EDT Hospital Encounter Heart and Vascular Unit Level 4 [place] [address] Hayder Graham MD [facility] [place] [address] S/P AVR (Primary Dx); Aortic valve stenosis, [...] Patient Age: 63 y.o. Birthdate: 1960 Language: Hong Konger Race: White Ethnicity: Not nor Admit Date: 02/17/2024 Discharge Date: 02/24/24 Attending Physician: Hayder Graham MD Follow-up Recommendations for Providers: Please continue routine management of cardiovascular risk factors including blood pressure, lipids,glucose, etc. Please note any changes to medications. Patient to follow up with PCP, Aparna Jordan APRN, in 1-2 weeks. Patient to follow up with Refinisher, Neftali Ernandez MD , in 2 weeks. Patient to follow up with Cardiac Surgeon, Dr. Hayder Graham, with a chest x-ray, EKG, and Echo. Inpatient Provider Contact Information: [facility] [place] [address] FAX [phone] Discharge Diagnoses (Hospital Problems) Primary Diagnoses: /CAD [...] 33.75) performed by Hayder Graham MD at [facility] MAIN OR PRO CABG, ARTERY-VEIN, TWO N/A 02/17/2024 @CABG, TWO VENOUS GRAFTS & ARTERIAL GRAFT (WRVU 7.93) performed by Hayder Graham MD at [facility] MAIN OR PRO ENDOSCOPY W/VIDEO-ASST VEIN HARVEST, CABG Left 02/17/2024 ENDOSCOPIC HARVEST VEIN(S) FOR CABG (WRVU 0.31) performed by Hayder Graham MD at [facility] MAIN OR PRO REPLACEMENT PROSTHETIC AORTIC VALVE OPEN W CARDIOPULMONARY BYPASS HOMOGRF/STENT N/A 02/17/2024 @REPLACE AORTIC VALVE, OPEN, W\CPB, W\PROSTHETIC VALVE (WRVU 41.32) performed by Hayder Graham MD at [facility] MAIN OR Prior To Admission [...] insufficiency. He has glaucoma. He used to [employer] until about 15 years ago. He has undergone prior herniorrhaphy. 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 Major Procedures/Operations: 02/17/24 s/p avr/cabgx3 CABG x 3 JOSE->LAD SVG->dRCA SVG->OM1 EVH from LLE AVR with a 23 mm Inspiris Bioprosthesis Hospital Course: Karlos Garcia was admitted to [facility] on 02/17/2024 via the [...] Hayder Graham and/or the Cardiac Surgery Physician Clinical Laboratory Scientist Team may be reached at . Antibiotic [...] Please refer to the card with the [place] [employer] Guidelines for more information. You [...] Dr. Hayder Graham. You may use a [place] Track or treadmill but avoid any pulling [...] friends, go to a movie, go to adventist, etc. Heavy activities: No hunting, skiing, jogging, [...] should resume a low fat, low cholesterol, [place] Heart [employer] Diet. Driving: No driving until [...] while being managed by your PCP and/or Refinisher. For future medication refills, please refer to your PCP and/or Refinisher after your discharge from our service. Thank you REMOVE CHEST TUBE SUTURES ON OR AFTER 03/02/24 Home oxygen therapy: N/A Follow up appointments: You should follow up with your PCP, Aparna Jordan APRN, in 1-2 weeks. Our office will schedule an appointment with your Refinisher, Neftali Ernandez MD , in 2 weeks. [...] Future Orders Complete By Expires Echocardiogram Transthoracic [49237 CPT(R)] 03/26/2024 09/25/2024 Process Instructions: Scheduling Instructions: Questions: Where will study be performed?: [facility] Does the patient have Congenital Heart Disease?: Does patient require sedation?: Sedation rationale: XR Chest PA & Lateral (Generic) [71366 63071 Custom] 03/26/2024 09/25/2024 Process Instructions: Scheduling Instructions: Questions: Portable exam?: Reason for exam and clinical history: s/p avr/cabg Clinical information / jerome questions for radiologist: Stat read required?: Date of injury if applicable: Requested Time: Where will study be performed?: [facility] Radiology Referral to Cardiac Rehab [JHC674 Custom] As directed Process Instructions: If no [...] to Home Health. [address] Phone Number: Date of : 1960 Inpatient DOCUMENTATION FOR VNA SERVICES (INCLUDING THOSE PATIENTS WITH MEDICARE COVERAGE REQUIRING HOME VNA SERVICES AND/OR HOSPICE SERVICES) PATIENT'S LOCATION: Karlos Garcia [address] [place] [phone] Talent Recruiter's Name: self/family In discussion with the attending physician, it is certified that this patient is under their care and that they, or a Nurse Practitioner, or Physician Clinical Laboratory Scientist who is working directly with them, hada [...] for services as follows: HOME HEALTH AGENCY: [facility]. [address] [place] [address] RN orders: Cardiopulmonary assessment, incisional assessment, assess [...] issues please call the Cardiology Office at [phone] FOR MEDICARE ONLY: (please delete this section [...] As above. Signed: NEFTALI MENON PA-C [facility] [place] [address] FAX [phone] Date: 02/24/2024 CC: Aparna Jordan, MAURI Jordan, Aparna Sherman APRN [address] [place] [address] documented in this encounter Discharge Instructions * [...] Hayder Graham and/or the Cardiac Surgery Physician Clinical Laboratory Scientist Team may be reached at . Antibiotic [...] Please refer to the card with the [place] Heart [employer] Guidelines for more information. You [...] Dr. Hayder Graham. You may use a [place] Track or treadmill but avoid any pulling [...] friends, go to a movie, go to adventist, etc. Heavy activities: No hunting, skiing, jogging, [...] should resume a low fat, low cholesterol, [place] Heart [employer] Diet. Driving: No driving until [...] while being managed by your PCP and/or Refinisher. For future medication refills, please refer to your PCP and/or Refinisher after your discharge from our service. Thank you REMOVE CHEST TUBE SUTURES ON OR AFTER 03/02/24 Home oxygen therapy: N/A Follow up appointments: You should follow up with your PCP, Aparna Jordan APRN, in 1-2 weeks. Our office will schedule an appointment with your Refinisher, Neftali Ernandez MD , in 2 weeks. [...] 0600 and on the weekends please page [phone]. * Eric Barahona PA - 02/23/2024 9:27 [...] 0600 and on the weekends please page [phone]. * Tiffanie Owens PTA - 02/22/2024 2:48 [...] for 10 days. 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 * Kelley Hinson, ASSEMBLY MACHINE FEEDER - 02/21/2024 10:15 AM EDT Physical Therapy [...] for 10 days. Pt was indep [employer]SEMBL[employer] MACHINE FEEDER. He drives. He works Precautions/Special Considerations: STERNAL [...] LRAD and supervision Time IN / OUT: 5553-5332 Total Time: 25 minutes; TEF 2 Kelley Hinson ASSEMBLY MACHINE FEEDER Pager: [phone] Physical Therapy Inpatient Rehabilitation Department [...] 0600 and on the weekends please page [phone]. * Kelley Hinson PTA - 02/20/2024 3:32 PM EDT 02/20/24 7118 Evaluation & Treatment Document Type contact Total Minutes, Physical Therapy 0 Comment, Session Not Performed Checked in w/ pt this PM for ongoing PT services, pt politely declined, stating he had been dealing w/ nausea all day, made plan to see him tomorrow morning, will f/u at that time Kelley Hinson PTA Pager: [phone] Physical Therapy Inpatient Rehab Department * Louisa [...] 0600 and on the weekends please page [phone]. * Maris Benavides, PT - 02/19/2024 11:22 [...] for 10 days. 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 Precautions/Special Considerations: STERNAL [...] outlined inthis evaluation. MARIS BENAVIDES, PT Pager: [phone] Physical Therapy Inpatient Rehabilitation Department Time IN / OUT: 7462-1636 Total Time: 38 (eval) minutes; * Antonio [...] 0600 and on the weekends please page [phone]. * Minnie Begum PA - 02/18/2024 8:25 [...] 0600 and on the weekends please page [phone]. * Kim Ha RCP - 02/17/2024 2:25 [...] plan since last visit. Hayder Graham MD [phone] Source Note - Hayder Graham MD - [...] insufficiency. He has glaucoma. He used to [employer] until about 15 years ago. He has [...] given written informed consent. Hayder Graham MD [phone] * Hayder Graham MD - 02/17/2024 7:00 [...] given written informed consent. Hayder Graham MD [phone] documented in this encounter Miscellaneous Notes * [...] for follow-up Home Health & Hospice, [address] [place] [address] Cardiac Rehab, [facility] [address] [facility] [address] [address] Transportation: family or friend will provide Functional status prior to admission: Independent Home Environment: Others in the home: alone. Current Living Arrangements: home/apartment/condo. Accessibility Concerns:a few steps to enter 1 floor home. Current Functional Ability: Assistive Person and Equipment DME used at home: none DME Needed at Discharge: N/A Patient is insured through: Primary Insurance: [facility] Payor: [facility] / Plan: [facility] PPO / [...] pain managed with scheduled Tylenol. [facility] with [facility]. Ambulated in the roque multiple times during [...] anticipated Patient is insured through: Primary Insurance: [facility] Payor: [facility] / Plan: [facility] PPO / [...] Services: Physical Therapy, Registered Nurse Agency Referrals: [facility] [address] [address] Transportation: family or friend will provide Barriers to discharge: Discharge planning Plan going forward: Service Care Management will continue to follow and assist with discharge planning and coordination of care as indicated. Anticipated Date of Discharge: 02/22/2024 Rhett Bell RN RN/CM - Cellphone: [phone] Pager: [phone] Covering Service RN/CM * Plan of Care [...] receiving care in [place] must abide by [place] law. The hierarchy [...] In the past 12 months has the [employer], gas, oil, or water [employer] threatened to shut off services in your [...] as: [address] [facility] [address] Physical address: [address] [facility], [address] Social & Family Supports: All names listed [...] Information: none noted Health/Prescription Coverage: Primary Insurance: [facility] Payor: [facility] / Plan: [facility] PPO / Product Type: *No Product type* / Secondary Insurance: N/A ; Prescription Coverage: Yes Preferred Pharmacy: [id number] AT [facility] & [address] [address] Status: Patient is a : No Primary Care Provider confirmed: Aparna Jordan, PROSPECTING DRILLER [phone] Patient/Caregiver Goals of Treatment: dc to home Potential Needs for Transition of Care: home health care Agency Referrals: I have met with the patient to: discuss discharge planning needs. provide the [facility] Office of Care Management letter from the [place] pertaining to rehab referrals. provide a letter describing our affiliations within the [facility] and educate about their right to choose where referrals are sent. provide a list of Home Health Agencies / Durable Medical Equipment vendors which serve their preferred geographic area. provided patient with [facility] Star Quality Rating handout. They have requested referrals to: [facility]. [address] [place] [address] Note routed to a Finance Vice President who will communicate referrals to facilities and [...] Reina Greene RN CM, BSN, CMGT- Ext [phone] * Plan of Care - Binta Trinidad [...] Operative Note Patient Name: Karlos Garcia DOB: [id number] MR#: [id number] Case Date: 02/17/2024 Surgeon: Surgeon(s) and Role: * Hayder Graham MD - Primary * Neftali Menon PA - Physician Clinical Laboratory Scientist Preoperative diagnosis: CAD Postoperative diagnosis: CAD, intraoperative [...] Operative Note Patient Name: Karlos Garcia : [id number] MR#: [id number] Case Date: 02/17/2024 Surgeon: Surgeons and Role: * Hayder Graham MD - Primary * Neftali Menon PA - Physician Clinical Laboratory Scientist Preoperative diagnosis: CAD Postoperative diagnosis: CAD, intraoperative [...] Mediastinal and Left pleural Disposition: [facility] Procedure Description: The patient was brought to [...] 3:00 PM EST Office Visit Cardiology at [place] [address] [place] [id number] Sheila Johnson APRN [address] [facility], [facility] [place] [address] Scheduled Orders Name Type Priority Associated Diagnoses [...] Aortic Valve Open W Cardiopulmonary Bypass Homogrf/Stent (08164) Yes 02/17/2024 7:28 AM EDT CAD Cabg, Artery-Vein, Two (34094) Yes 02/17/2024 7:28 AM EDT CAD Cabg, Arterial, Single (84712) Yes 02/17/2024 7:28 AM EDT CAD Endoscopy W/Video-Asst Vein Anita, Cabg (32008) Yes 02/17/2024 7:28 AM EDT CAD POCT [...] CHEMISTRY ORDERABLE S [facility] [place] [address] * (ABNORMAL) Basic Metabolic Panel (non-fasting) (02/23/2024 [...] MD CHEMISTRY ORDERABLES [facility] [place] [address] * Potassium (02/22/2024 4:30 AM EDT) Potassium [...] CHEMISTRY ORDERABLE S [facility] [place] [address] * (ABNORMAL) Basic Metabolic Panel (non-fasting) (02/21/2024 [...] MD CHEMISTRY ORDERABLES Performing Organization Address City/[facility]/ZIP Co de Phone Number [facility] [place] [address] * Lactate, whole blood, send to lab ([facility]) (02/21/2024 9:45 AM EDT) [facility] Lactate WB 2.0 0.5 - 2.2 mmol/L [facility] Blood 02/21/2024 9:45 AM EDT 02/21/2024 9:52 AM EDT Narrative Resulting Agency Comment Spec In Lab Hayder Graham MD CHEMISTRY ORDERABLE S Performing Organization Address City/[facility]/ZIP Co de Phone Number [facility] [place] [address] * (ABNORMAL) Hepatic Function Panel (02/21/2024 9:45 [...] CHEMISTRY ORDERABLE S Performing Organization Address City/[facility]/ZIP Co de Phone Number [facility] [place] [address] * Lipase (02/21/2024 9:45 AM EDT) Lipase 56 0 - 60 unit/L [facility] Blood 02/21/2024 9:45 AM EDT 02/21/2024 9:52 AM EDT Narrative Resulting Agency Comment Spec In Lab Hayder Graham MD CHEMISTRY ORDERABLE S Performing Organization Address [facility] Co de Phone Number [facility] [place] [address] * Amylase (02/21/2024 9:45 AM EDT) Amylase 69 28 - 100 unit/L [facility] Blood 02/21/2024 9:45 AM EDT 02/21/2024 9:52 AM EDT Narrative Resulting Agency Comment Spec In Lab Hayder Graham MD CHEMISTRY ORDERABLE S Performing Organization Address [facility] Co de Phone Number [facility] [place] [address] * Potassium (02/21/2024 3:08 AM EDT) Potassium [...] Hayder Graham MD CHEMISTRY ORDERABLE S [facility] [place] [address] * XR Chest PA & Lateral (Generic) (02/20/2024 10:19 AM EDT) WORKSTATION ID [id number] RAD Anatomical Region Laterality Modality Chest N/A Digital Radiogra phy Impressions 02/20/2024 1:11 PM EDT Small pleural effusions. No pneumothorax Thank you for letting us participate in the care of this patient. ??If you are a health care provider and have any questions regarding this report, please contact the number below. ??For patients who have questions please contact the health direct care counselor that requested your imaging first. ? Electronically signed by: Rogerio Cruz MD, [facility] ??([phone]), at 02/20/2024 1:11 PM Narrative 02/20/2024 1:11 PM EDT EXAMINATION: XR CHEST PA AND LATERAL (GENERIC) CLINICAL HISTORY: s/p AVR/CABGx3 TECHNIQUE: PA and lateral views of the chest COMPARISON: 02/17/2024 FINDINGS: Support devices: Interval removal of [place] catheter, endotracheal tube and mediastinal chest tubes The cardiac silhouette is stable status post median sternotomy, CABG and aortic valve replacement. There are small pleural effusions. No pneumothorax. Procedure Note Rogerio Cruz MD - 02/20/2024 EXAMINATION: XR CHEST PA AND LATERAL (GENERIC) CLINICAL HISTORY: s/p AVR/CABGx3 TECHNIQUE: PA and lateral views of the chest COMPARISON: 02/17/2024 FINDINGS: Support devices: Interval removal of [place] catheter, endotracheal tubeand mediastinal chest tubes The [...] have questions please contactthe health direct care counselor that requested your imaging first. Hayder Graham MD IMG DX ORDERABLES * Scan, Peripheral Blood (02/20/2024 4:23 AM EDT) Pathologist [facility] Plat estimate Decreased [facility] RBC Morphology Normal [facility] Blood 02/20/2024 4:23 AM EDT 02/20/2024 4:42 AM EDT Narrative Resulting Agency Comment Spec In Lab Minnie FRENCH HEMATOLOGY CECILIO ALEMAN [facility] [place] [address] * (ABNORMAL) Differential, Automated (02/20/2024 4:23 AM EDT) [facility] Neutrophil % 81.7 % [facility] Neutrophil Absolute 10.37(H) 1.70 - 6.10 x10(3)/mc L [facility] Lymph % 7.4 % [facility] Lymphocytes Abs 0.9 0.9 - 3.2 x10(3)/mc L [facility] Monocyte % 9.7 % [facility] Monocyte Abs 1.2(H) 0.3 - 0.9 x10(3)/mc L [facility] Eos % 0.1 % [facility] Eosinophils Abs 0.0 0.0 - 0.4 x10(3)/[facility] Basophil % 0.2 % [facility] Baso Absolute 0.0 0.0 - 0.1 x10(3)/[facility] Immature Gran % 0.90 % [facility] Comment: Immature granulocytes(IG's)percentage and absolute count will include metamyelocytes, myelocytes, and promyelocytes. Blood smears from CBCs yielding IG's will be scanned manually for concordance. If this scan disagrees with the automated IG or if promyelocytes are noted, a manual differential will be performed. Immature Gran Absolute 0.12(H) 0.00 - 0.04 x10(3)/[facility] Blood 02/20/2024 4:23 AM EDT 02/20/2024 4:42 AM EDT Narrative Resulting Agency Comment Spec In Lab Minnie FRENCH HEMATOLOGY CECILIO ALEMAN [facility] [place] [address] * (ABNORMAL) Hemogram (02/20/2024 4:23 AM EDT) White Blood Cell 12.7(H) 4.0 - 9.5 x10(3)/[facility] Red Blood Cell 4.26(L) 4.58 - 5.54 x10(6)/ L [facility] Hemoglobin 12.3(L) [...] [facility] NRBC% auto 0.0 % [facility] NRBC Absolute 0.000 0.000 - 0.000 x10(3)/mc L [facility] Blood 02/20/2024 4:23 AM EDT 02/20/2024 4:42 AM EDT Narrative Resulting Agency Comment Spec In Lab Minnie FRENCH HEMATOLOGY CECILIO ALEMAN [facility] [place] [address] * (ABNORMAL) Basic Metabolic Panel (non-fasting) (02/20/2024 [...] ORDERABLE S Performing Organization Address [facility]/ZIP Co de Phone Number [facility] [place] [address] * Potassium (02/19/2024 3:57 AM EDT) [facility] Signature Potassium 4.3 3.5 - 5.0 [...] CHEMISTRY ORDERABLE S Performing Organization Address City/[facility]/ZIP Co de Phone Number [facility] [place] [address] * POCT Glucose (02/18/2024 8:24 AM EDT) [facility] Glucose, POC 157 65 - 199 mg/dL [facility] Comment: Supplemental ranges: <140 mg/dL before meals <180 mg/dL all other times of the day Blood 02/18/2024 8:24 AM EDT 02/18/2024 8:24 AM EDT Hayder Graham MD POINT OF CARE TEST ORDERABLES Performing Organization Address City/[facility]/ZIP Co de Phone Number [facility] [place] [address] * Scan, Peripheral Blood (02/18/2024 1:40 AM EDT) [facility] Plat estimate Decreased [facility] RBC Morphology Normal [facility] Blood 02/18/2024 1:40 AM EDT 02/18/2024 1:56 AM EDT Narrative Resulting Agency Comment Spec In Lab Neftali FRENCH HEMATOLOGY ORDER OLE Performing Organization Address City/[facility]/ZIP Co de Phone Number [facility] [place] [address] * (ABNORMAL) Differential, Automated (02/18/2024 1:40 AM EDT) [facility] Neutrophil % 87.1 % [facility] Neutrophil Absolute 15.03(H) 1.70 - 6.10 x10(3)/mc L [facility] Lymph % 3.0 % [facility] Lymphocytes Abs 0.5(L) 0.9 - 3.2 x10(3)/mc L [facility] Monocyte % 9.1 % [facility] Monocyte Abs 1.6(H) 0.3 - 0.9 x10(3)/mc L [facility] Eos % 0.0 % [facility] Eosinophils Abs 0.0 0.0 - 0.4 x10(3)/mc L [facility] Basophil % 0.2 % [facility] [...] FRENCH HEMATOLOGY ORDER OLE Performing Organization Address City/State/[facility] Co de Phone Number [facility] [place] [address] * (ABNORMAL) Hemogram (02/18/2024 1:40 AM EDT) [...] [facility] NRBC% auto 0.0 % [facility] NRBC Absolute 0.000 0.000 - 0.000 x10(3)/mc L [facility] Blood 02/18/2024 1:40 AM EDT 02/18/2024 1:56 AM EDT Narrative Resulting Agency Comment Spec In Lab Neftali FRENCH HEMATOLOGY ORDER OLE [facility] [place] [address] * (ABNORMAL) Basic Metabolic Panel (non-fasting) (02/18/2024 [...] CHEMISTRY ORDERABLE S [facility] [place] [address] * (ABNORMAL) Troponin (02/18/2024 1:40 AM EDT) Pathologist [facility] Troponin-T, High Sensitivity 342(H) <=22 ng/L [facility] [...] troponin value can be found in the [facility] Test Catalog Troponin - [facility] Test Catalog Reference: Fourth Walker Definition of Myocardial Infarction. Journal of the [place] 2018;72:2362-4890 Blood 02/18/2024 1:40 AM EDT 02/18/2024 1:56 AM EDT Narrative Resulting Agency Comment Spec In Lab Hayder Graham MD CHEMISTRY ORDERABLE S Performing Organization Address City/[facility]/ZIP Co de Phone Number [facility] [place] [address] * POCT Glucose (02/17/2024 8:13 PM EDT) Glucose, POC 142 65 - 199 mg/dL [facility] Comment: Supplemental ranges: <140 mg/dL before meals <180 mg/dL all other times of the day Blood 02/17/2024 8:13 PM EDT 02/17/2024 8:13 PM EDT Hayder Graham MD POINT OF CARE TEST ORDERABLES Performing Organization Address [facility]/ZIP Co de Phone Number [facility] [place] [address] * POCT Glucose (02/17/2024 5:42 PM EDT) Glucose, POC 160 65 - 199 mg/dL [facility] Comment: Supplemental ranges: <140 mg/dL before meals <180 mg/dL all other times of the day Blood 02/17/2024 5:42 PM EDT 02/17/2024 5:42 PM EDT Hayder Graham MD POINT OF CARE TEST ORDERABLES Performing Organization Address City/[facility]/ZIP Co de Phone Number [facility] [place] [address] * Hemoglobin (02/17/2024 5:42 PM EDT) Hemoglobin 13.7 13.7 - 16.5 g/dL [facility] Blood 02/17/2024 5:42 PM EDT 02/17/2024 6:10 PM EDT Narrative Resulting Agency Comment Spec In Lab Hayder Graham MD HEMATOLOGY ORDERABL ES Performing Organization Address [facility] Co de Phone Number [facility] [place] [address] * Potassium (02/17/2024 5:42 PM EDT) Potassium [...] ORDERABLE S Performing Organization Address [facility] Co de Phone Number [facility] [place] [address] * (ABNORMAL) BLOOD GAS 2 ARTERIAL (02/17/2024 [...] [facility] FIO2 Art 40 % [facility] PF Ratio Art 195 [facility] Blood 02/17/2024 4:18 PM EDT 02/17/2024 4:18 PM EDT Hayder Graham MD POINT OF CARE TEST ORDERABLES [facility] [place] [address] * XR Chest One View (02/17/2024 1:44 PM EDT) WORKSTATION ID [id number] RAD Anatomical Region Laterality Modality Chest N/A Digital Radiogra phy Impressions 02/17/2024 2:12 PM EDT 1. ??No definite pleural fluid collection or pneumothorax. 2. ??Right IJ [place]a catheter tip terminates in a descending branch [...] questions please contact the health direct care counselor that requested your imaging first. ? Electronically signed by: Denzel Hankins MD, [facility] ??([phone]), at 02/17/2024 2:12 PM Narrative 02/17/2024 2:12 PM EDT EXAMINATION: XR CHEST ONE VIEW CLINICAL HISTORY: s/p avr/cabg eval effusions TECHNIQUE: 1 view of the chest COMPARISON: Chest x-ray 01/09/2024, chest CT 02/03/2024 FINDINGS: ET tube tip terminates 5.2 cm above the carlos. Right IJ [place]aila catheter tip terminates in a descending branch [...] 5.2 cm above the carlos. Right IJ [place]-Ganzcatheter tip terminates in a descending branch of [...] fluid collection or pneumothorax. 2. Right IJ [place] catheter tip terminates in a descending branch ofthe right pulmonary artery. Suggest catheter retraction. 3. Additional support lines and tubes as above. Thank you for letting us participate in the care of this patient. If youare a health care provider and have any questions regarding this report,please contact the number below. For patients who have questions please contactthe health direct care counselor that requested your imaging first. Electronically signed by: Denzel Hankins MD, [facility]([phone]), at 02/17/2024 2:12 PM Hayder Graham MD [...] [facility] FIO2 Art 100 % [facility] PF Ratio Art 320 [facility] Blood 02/17/2024 1:31 PM EDT 02/17/2024 1:31 PM EDT Hayder Graham MD POINT OF CARE TEST ORDERABLES [facility] [place] [address] * (ABNORMAL) Coox2 (02/17/2024 1:21 PM EDT) [...] CARE TEST ORDERABLES [facility] [place] [address] * (ABNORMAL) BLOOD GAS 2 ARTERIAL (02/17/2024 [...] TEST ORDERABLES Performing Organization Address [facility] de Phone Number [facility] [place] [address] * (ABNORMAL) Fibrinogen (02/17/2024 12:10 PM EDT) [...] ORDERABLE S Performing Organization Address [facility] Co de Phone Number [facility] [place] [address] * (ABNORMAL) Thrombin time (02/17/2024 12:10 PM [...] HEMATOLOGY ORDERABLE S Performing Organization Address [facility] de Phone Number [facility] [place] [address] * APTT (02/17/2024 12:10 PM EDT) Partial [...] HEMATOLOGY ORDERABLE S Performing Organization Address [facility] de Phone Number [facility] [place] [address] * (ABNORMAL) Prothrombin Time (02/17/2024 12:10 PM [...] HEMATOLOGY ORDERABLE S [facility] [place] [address] * (ABNORMAL) Hemogram (02/17/2024 12:10 PM EDT) [...] [facility] NRBC% auto 0.0 % [facility] NRBC Absolute 0.000 0.000 - 0.000 x10(3)/mc L [facility] Blood 02/17/2024 12:1 0 PM EDT 02/17/2024 12:19 PM EDT Narrative Resulting Agency Comment Spec In Lab Tara York MD HEMATOLOGY ORDERABLE S [facility] [place] [address] * (ABNORMAL) BLOOD GAS 2 ARTERIAL (02/17/2024 [...] CARE TEST ORDERABLES [facility] [place] [address] * (ABNORMAL) BLOOD GAS 2 ARTERIAL (02/17/2024 [...] TEST ORDERABLES Performing Organization Address [facility] Co de Phone Number [facility] [place] [address] * (ABNORMAL) Hemoglobin and Hematocrit, blood (02/17/2024 [...] HEMATOLOGY ORDERABL ES Performing Organization Address City/[facility]/ZIP Co de Phone Number [facility] [place] [address] * (ABNORMAL) Platelet count (02/17/2024 11:04 AM EDT) Pathologist [facility] Platelet 106(L) 145 - 357 x10(3)/mc L [facility] Immature Plt % 1.6 0.0 - 7.4 % [facility] Comment: Limitation of the Immature Platelet Fraction (IPF)-May be less reliable when the platelet count is less than 95r602/uL due to statistical imprecision. The IPF value [...] in a decreased state of production. References: [employer] The Clinical Value of the Immature Platelet Fraction (IPF) in Cell Recovery Document Number [id number] 03/2011 [employer] The Role of the Immature Platelet Fraction (IPF) in the Differential Diagnosis of Thrombocytopenia, Document [id number] V002/15/14 P014 Blood 02/17/2024 11:0 4 AM EDT 02/17/2024 11:12 AM EDT Narrative Resulting Agency Comment Spec In Lab Hayder Graham MD HEMATOLOGY ORDERABL ES Performing Organization Address City/[facility]/ZIP Co de Phone Number [facility] [place] [address] * (ABNORMAL) Fibrinogen (02/17/2024 11:04 AM EDT) [facility] Fibrinogen 149(L) 200 - 393 mg/dL [...] HEMATOLOGY ORDERABL ES [facility] [place] [address] * (ABNORMAL) BLOOD GAS 2 ARTERIAL (02/17/2024 [...] OF CARE TEST ORDERABLES Performing Organization Address City/State/[facility] Co de Phone Number [facility] [place] [address] * (ABNORMAL) BLOOD GAS 2 ARTERIAL (02/17/2024 [...] CARE TEST ORDERABLES [facility] [place] [address] * Surgical Pathology Report (02/17/2024 10:01 AM EDT) Final Diagnosis [id number] ? Location: [facility]; [address] [place] [address] The signing pathologist has (i) examined the relevant preparation(s) for the specimen(s) and (ii) rendered or confirmed the diagnosis(es). . ?Surgical Pathology DIAGNOSIS Aortic valve leaflets, excision: Valve leaflets with myxoid degeneration, nodular fibrosis and dystrophic calcifications. Electronically signed by: ?Livier Montoya MD Verified: ??02/24/2024 13:49 ??Pathologist Performed at: ??-[facility], [place] [address] Green Belt: Job Brewer MD, FCAP, ??CLIA Certificate: [id number] SPECIMEN(S) SUBMITTED A - Aortic Valve Leaflets, [...] Sections Processing Blocks submitted for decalcification: A1. Brim Pouncing Machine Operator sections in 1 cassette labeled A1. ??ajw 02/24/2024 1:49 PM EDT [facility] AORTIC STRUCTURE / Unknown 02/17/2024 10:01 AM EDT 02/17/2024 10:01 AM EDT Hayder Graham MD PATHOLOGY/CYTOLOGY ORDERABLES [facility] [place] [address] * Specimen to Pathology (02/17/2024 10:01 AM EDT) AP Specimen 02/17/2024 10:0 1 AM EDT 02/17/2024 10:01 AM EDT Narrative [facility] - 02/17/2024 10:01 AM EDT Specimen requisition ordered. ??Separate Pathology report to follow Hayder Graham MD PATHOLOGY/CYTOLOGY ORDERABLES [facility] [place] [address] * (ABNORMAL) BLOOD GAS 2 ARTERIAL (02/17/2024 [...] CARE TEST ORDERABLES [facility] [place] [address] * (ABNORMAL) BLOOD GAS 2 VENOUS (02/17/2024 [...] CARE TEST ORDERABLES [facility] [place] [address] * (ABNORMAL) BLOOD GAS 2 ARTERIAL (02/17/2024 [...] TEST ORDERABLES Performing Organization Address [facility] de Phone Number [facility] [place] [address] * POCT Glucose (02/17/2024 6:38 AM EDT) Glucose, POC 98 65 - 199 mg/dL [facility] Comment: Supplemental ranges: <140 mg/dL before meals <180 mg/dL all other times of the day Blood 02/17/2024 6:38 AM EDT 02/17/2024 6:38 AM EDT Hayder rGaham MD POINT OF CARE TEST ORDERABLES Performing Organization Address [facility] de Phone Number [facility] [place] [address] * Transesophageal Echo/OR (02/17/2024 6:33 AM EDT) [...] [facility]-operative [facility] [...] dose on Sat02/17/24 at 1400, Until Discontinued, [place] teeth and / or gums. Scan the CHG vial in the [employer] Q-Care Oral Care Kit from floor stock. Ventilator-associated pneumonia prophylaxis For use in ICU/Critical care locations ONLY. Obtain kit from Floor Stock location. Scan CHG vial in the [employer] Q-Care Oral Care Kit, Routine Given 02/17/2024 [...] 50% of previous rate. Call melt house centrifugal operator if goal not achieved at maximum [...] PHENYLephrine and/or vasopressin ineffective. Call pager # [phone] if initiated. Titrate to keep systolic blood [...] Maximum volume 2 L. Call melt house centrifugal operator for additional fluid orders: pager #[phone]. Rate/Dose Verify 02/18/2024 8:00 AM EDT 1 [...] Discontinued, Routine 013 (Given - Provider: Polo Britotn RN)0930 (Given - Provider: Reilly Vincent RN)1708 [...] Routine documented in this encounter Care Teams Client Support Manager Relationship Specialty Start Date End Date Aparna Jordan APRN PCP - General Family Medicine 10/21/23 05/26/24 documented as of this encounter
--- OUTSIDE RECORDS SUMMARY | 2024-11-17 10:30 | XMS_ITS | Encounter Summary ---
Author Organization [facility] [place] [address] Care Team Providers Care Floral Arranger Name Role Phone Vanessa Christian APRN Primary Care Provider [phone] Encounter Details Date Type Department Care Team [...] PM EST Office Visit Cardiology at [address] [place] [address] Sheila Johnson APRN [address] [facility], [facility] [place] [place] [address] documented as of this encounter Visit Diagnoses Not on filedocumented in this encounter Care Teams Floral Arranger Relationship Specialty Start Date End Date Vanessa Christian APRN PCP - General Family Medicine 10/21/23 05/26/24 documented as of this encounter
--- OUTSIDE RECORDS SUMMARY | 2024-11-17 10:30 | XMS_ITS | Encounter Summary ---
Author Organization [facility] [place] [address] Care Team Providers Care Fixed Capital Clerk Name Role Phone Vanessa Christian MAURI Primary Care Provider [phone] Encounter Details Date Type Department Care Team (Late st Contact Info) Description 12/26/2023 Notes Only Cardiology at [address] [address] Neftali Ernandez MD [facility] [place] [address] Social History Tobacco Use Types Packs/Day Years [...] PM EST Office Visit Cardiology at [address] [address] Sheila Johnson APRN [address] [place] [address], [place] [address] documented as of this encounter Visit Diagnoses Not on filedocumented in this encounter Care Teams Fixed Capital Clerk Relationship Specialty Start Date End Date Vanessa Christian APRN PCP - General Family Medicine 10/21/23 05/26/24 documented as of this encounter
--- OUTSIDE RECORDS SUMMARY | 2024-11-17 10:30 | XMS_ITS | Encounter Summary ---
Author Organization [facility] Address [facility] [place] [address] Care Team Providers Care Tank Hoop Bender Name Role Phone Vanessa Christian MAURI Primary Care Provider [phone] Encounter Details Date Type Department Care Team (Latest Contact Info) Description 01/09/2024 3:02 PM EDT - 01/09/2024 11:59 PM EDT Hospital Encounter XRay at [address] [place] [address] Zak Farmer MD [facility] [place] [address] Nonrheumatic aortic valve stenosis Discharge Disposition: Home Social History Tobacco Use Types Packs/Day Years Used Date Smoking Tobacco: Former Cigarettes Smokeless Tobacco: Never Comments:Quit 15 + years ago Alcohol Use Standard Drinks/Week Comments Yes 0 (1 standard drink = 0.6 oz pur e alcohol) rare [facility] Inpatient Questions Answer Date Recorded Prevent [...] 3:00 PM EST Office Visit Cardiology at [place] [address] [place] [address] Sheila Johnson APRN 580 [facility] [place] [address] documented as of this encounter Procedures Procedure [...] nanny caregiver that requested your imaging first. Zak Farmer MD IMG DX ORDERABLES documented in this encounter Visit Diagnoses Diagnosis Nonrheumatic aortic valve stenosis Aortic valve disorders documented in this encounter Care Teams Tank Hoop Bender Relationship Specialty Start Date End Date Vanessa Christian APRN PCP - General Family Medicine 10/21/23 05/26/24 documented as of this encounter
--- OUTSIDE RECORDS SUMMARY | 2024-11-17 10:30 | XMS_ITS | Encounter Summary ---
Author Organization [facility] [place] [address] Care Team Providers Care Primer Charging Tool Setter Name Role Phone Vanessa Christian APRN Primary Care Provider [phone] Encounter Details Date Type Department Care Team [...] PM EST Office Visit Cardiology at [address] [address] Sheila Johnson APRN 580 [facility], [facility] [place] [address] documented as of this encounter Visit Diagnoses Not on filedocumented in this encounter Care Teams Primer Charging Tool Setter Relationship Specialty Start Date End Date Vanessa Christian APRN PCP - General Family Medicine 10/21/23 05/26/24 documented as of this encounter
--- OUTSIDE RECORDS SUMMARY | 2024-11-17 10:30 | XMS_ITS | Encounter Summary ---
Author Organization [facility] [place] [address] Care Team Providers Care Appointment Manager Name Role Phone Vanessa Christian MAURI Primary Care Provider [phone] Reason for Visit * Auth/Cert (Routine) Specialty [...] Farmer MD [facility] [place] [address] [facility] Referral ID Status Reason Start Date Expiration Date Visits Re quested Visits Authorized [id number] 1 1 Encounter Details Date Type Department Care Team (Late st Contact Info) Description 02/17/2024 7:35 AM EDT Anesthesia Event Main Operating Room [facility] [place] [phone] Roman York MD [facility] [place] [address] Anesthesia Record Procedure Summary Procedure Name Responsible [...] by Sadiq Woo RN PIV 02/17/24; 0715; [id number] catheter system; 18 gauge; cephalic vein (lateral [...] th e electric, gas, oil, or water [employer] [place] threatened to shut off services in your [...] Procedure Summary Date: 02/17/24 Room / Location: [facility] OR [address] [place] [address] MAIN OR Anesthesia Start: 734 Anesthesia Stop: [...] shown include unfiled device data. Patient Location: [facility] Level of Consciousness: Sedated [...] PM EST Office Visit Cardiology at [address] [place] [address] Sheila Johnson, CAREER SERVICES COORDINATOR [address] [facility] [place], [place] [address] documented as of this encounter [...] mg documented in this encounter Care Teams Appointment Manager Relationship Specialty Start Date End Date Vanessa Christian APRN PCP - General Family Medicine 10/21/23 05/26/24 documented as of this encounter
--- OUTSIDE RECORDS SUMMARY | 2024-11-17 10:30 | XMS_ITS | Encounter Summary ---
Author Organization [facility] Address [facility] [place] [address] Care Team Providers Care Endoscopy Technician Name Role Phone Vanessa Christian MAURI Primary Care Provider [phone] Reason for Visit * Consultation (Routine) - Closed Specialty Diagnoses / Procedures Referred By Contac t Referred To Contact Cardiac Surgery Diagnoses Nonrheumatic aortic valve stenosis significant - TAVR ( defers to Card Surg d/t age) Neftali Ernandez MD [facility] [place] [address] Zak Farmer MD [facility] [place] [address] Referral ID Status Reason Start Date Expiration Date V isits Requested Visits Authorized [id number] Closed Consult, Test & Treat 10/21/2023 10/20/2024 1 1 Encounter Details Date Type Department Care Team (Late st Contact Info) Description 01/09/2024 1:40 PM EDT Office [place] [address] Zak Farmer MD [facility] C[place]IOTH[place]ACIC [place] [address] Nonrheumatic aortic valve stenosis Social [...] office. Best personal regards, Zak Farmer MD [phone] In aggregate 55 minutes were spent evaluating [...] 3:00 PM EST Office Visit Cardiology at [place] [address] [place] [address] Sheila Johnson, MAURI 580 [facility] [place] [address] documented as of this encounter Results * [...] coach that requested your imaging first. ? Narrative [...] career coach that requested your imaging first. Zak Farmer [...] ORDERABLE S [facility] [place] [address] * Hepatic Function Panel (01/09/2024 2:58 PM [...] CHEMISTRY ORDERABLE S Performing Organization Address [facility] de Phone Number [facility] [place] [address] * Prothrombin Time (01/09/2024 2:58 PM EDT) [facility] Prothrombin Time 10.6 9.4 - 12.5 [...] MD HEMATOLOGY ORDERABL ES Performing Organization Address City/[facility] Co de Phone Number [facility] [place] [address] * Type and Screen Future Surgery, [facility] SAME DAY PROGRAM ONLY) (01/09/2024 2:58 PM [...] Zak Farmer MD BLOOD BANK LAB ORDE [facility] Organization Address City/State/ZIP Co de Phone Number [facility] [place] [address] documented in this encounter Visit Diagnoses Diagnosis Nonrheumatic aortic valve stenosis Aortic valve disorders Nonrheumatic aortic valve stenosis Aortic valve disorders documented in this encounter Care Teams Endoscopy Technician Relationship Specialty Start Date End Date Vanessa Christian, MAURI PCP - General Family Medicine 10/21/23 05/26/24 documented as of this encounter
--- OUTSIDE RECORDS SUMMARY | 2024-11-17 10:30 | XMS_ITS | Encounter Summary ---
Author Organization [facility] [place] [address] Care Team Providers Care Calender Roll Press Operator Name Role Phone Vanessa Christian APRN Primary Care Provider [phone] Encounter Details Date Type Department Care Team (Late st Contact Info) Description 10/21/2023 Abstract Cardiology at [address] [phone] Adam Mayes RN Social History Tobacco Use [...] PM EST Office Visit Cardiology at [address] [address] Sheila Johnson APRN 580 [facility], [facility] [place] [address] documented as of this encounter Visit Diagnoses Not on filedocumented in this encounter Care Teams Calender Roll Press Operator Relationship Specialty Start Date End Date Vanessa Christian APRN PCP - General Family Medicine 10/21/23 05/26/24 documented as of this encounter
--- OUTSIDE RECORDS SUMMARY | 2024-11-17 10:30 | XMS_ITS | Encounter Summary ---
Author Organization [facility] [place] [address] Care Team Providers Care Hydroelectric Plant Electrician Name Role Phone Vanessa Christian MAURI Primary Care Provider [phone] Reason for Visit * Auth/Cert (Routine) Specialty [...] (WRVU 5.9) Rima Dickinson MD [facility] [place] [address] [facility] Referral ID Status Reason Start Date Expiration Date Visits Re quested Visits Authorized [id number] 1 1 Encounter Details Date Type Department Care Team (Latest Contact Info) Description 02/03/2024 8:06 AM EDT - 02/03/2024 2:54 PM EDT Hospital Encounter Certified Orthotist/[place] [address] Rima Dickinson MD [facility] [place] [address] Screening for cardiovascular condition; Aortic valve stenosis, [...] lbs Follow-up Visits Follow up with your divorce attorney in 2-4 weeks Access Site 'Black and Blue' and tenderness is expected during the first week Call if you noted a mass (lump) greater than the size of a ellis Call Office with any Questions and if you have any of the following Clarence Lane M.D Interventional Business Practices Officer Spring Intern #: [phone] * Attachments The following attachments cannot be sent through Care Everywhere. * CAD (Coronary Artery Disease): General Info (Libyan) * Coronary Angiogram: Post-op (Libyan) documented in this encounter Medications at Time [...] Pre-Procedure H&P Update: Cardiac Catheterization Karlos Anthony [id number] 1960 Chief Complaint: Aortic stenosis HPI: Mr. [...] Value Date INR 0.9 01/09/2024 Assessment/Plan: Mr. Snata is a 63-year-old man with known aortic [...] inthe chart Clarence Lane MD Interventional Business Practices Officer 02/03/24 11:48 AM documented in this encounter Miscellaneous Notes * Brief Op Note - Clarence Lane MD - 02/03/2024 12:51 PM EDT Preliminary Cardiac Catheterization Procedure Note: Patient Name: Karlos Anthony : [id number] MR#: [id number] Case Date: 02/03/2024 Spring Intern: Surgeon(s) and Role: * Saira Lua MD [...] 3:00 PM EST Office Visit Cardiology at [place] [address] [place] [phone] Sheila Johnson APRN [address] [facility], [email or web address] [place] [address] Scheduled Orders Name Type Priority Associated Diagnoses [...] Narrative 02/12/2024 3:47 PM EDT ?[facility] ? Cardiac Catheterization/Intervention Report ? Patient Name: Raj, Karlos ? Procedure Date: 02/03/2024 ? A #: [id number] ? Primary Physician: Mogadam, Emad ? Case #: [id number] ? File Name: [id number] ? Catheterization Order Number: [id number] ? [facility] ? Final Report [place], [place] ? Patient Name: ? Karlos Patenaude ? ID#: ?[id number] ? : ?1960 ? Procedure Date: ? [...] Saira Lua MD - 02/12/[address] [facility] Cardiac Catheterization/Intervention Report Patient Name: Karlos Anthony Procedure Date: 02/03/2024 A #: [id number] Primary Physician: Saira Lua Case #: [id number] File Name: [id number] Catheterization Order Number: [id number] [facility] FinalReport [place], [place] Patient Name: Karlos Anthony ID#:[id number] :1960 Procedure Date: February 03, 2024 Case [...] was designated as ASA Class III. The [facility] clinical frailty scale is 3: [...] (Bezet) 372 ms MUSE SYSTEM Calculated P [place] 59 degrees MUSE SYSTEM Calculated R [place] 34 degrees MUSE SYSTEM Calculated T [place] 63 degrees MUSE SYSTEM INTERPRETATION Sinus bradycardia [...] MD) documented in this encounter Care Teams Hydroelectric Plant Electrician Relationship Specialty Start Date End Date Vanessa Christian APRN PCP - General Family Medicine 10/21/23 05/26/24 documented as of this encounter
--- OUTSIDE RECORDS SUMMARY | 2024-11-17 10:30 | XMS_ITS | Encounter Summary ---
Author Organization [facility] Address [facility] [place] [address] Care Team Providers Care Music Therapist Name Role Phone Vanessa Christian MAURI Primary Care Provider [phone] Encounter Details Date Type Department Care Team (Late st Contact Info) Description 02/14/2024 Orders [place] [phone] Zak Farmer MD [facility] CARDIOTHORACIC [place] [address] Coronary artery disease, unspecified vessel or lesion type, unspecified whether angina present, unspecified whether [place] or transplanted heart (Primary Dx) Social [...] PM EST Office Visit Cardiology at [address] [place] [address] Sheila Johnson A, FUEL CELL SYSTEMS ENGINEER [address], [address] A CARDIOLOGY [place], [place] [id number] documented as of this encounter Results * EKG 12 Lead (03/12/2024 2:35 PM EDT) Ventricular rate 59 BPM MUSE SYSTEM Atrial Rate 59 BPM MUSE SYSTEM P-R Interval 190 ms MUSE SYSTEM QRS Duration 92 ms MUSE SYSTEM Q-T Interval 406 ms MUSE SYSTEM QTC Calculated (Bezet) 401 ms MUSE SYSTEM Calculated P [place] -12 degrees MUSE SYSTEM Calculated R [place] 24 degrees MUSE SYSTEM Calculated T [place] 74 degrees MUSE SYSTEM INTERPRETATION Sinus bradycardia T wave abnormality, consider anterior ischemia Abnormal ECG When compared with ECG of 17-FEB-2024 13:24, ME interval has decreased T wave inversion now evident in Anterior leads Confirmed by Paul Guzman ([id number]) on 03/15/2024 8:36:23 AM MUSE SYSTEM 03/12/2024 2:35 PM EDT 03/15/2024 8:36 AM EDT Zak Farmer MD ECG ORDERABLES MUSE SYSTEM * XR Chest PA & Lateral (Generic) (03/12/2024 1:42 PM EDT) WORKSTATION ID [id number] [facility] Anatomical Region [...] signed by: Augie Sanchez MD, [facility] ([phone]), at 03/13/2024 8:28 AM Narrative 03/13/2024 8:28 AM EDT EXAMINATION: XR CHEST PA AND LATERAL (GENERIC) CLINICAL HISTORY: s/p cabg eval effusions I25.10, Atherosclerotic heart disease of [place] coronary artery without angina pectoris TECHNIQUE: [...] eval effusions I25.10, 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 Zak Farmer MD IMG DX ORDERABLES documented in this encounter Visit Diagnoses Diagnosis Coronary artery disease, unspecified vessel or lesion type, unspecified whether angina present, unspecified whether [place] or transplanted heart- Primary Coronary artery disease, unspecified vessel or lesion type, unspecified whether angina present, unspecified whether [place] or transplanted heart documented in this encounter Care Teams Music Therapist Relationship Specialty Start Date End Date Vanessa Christian APRN PCP - General Family Medicine 10/21/23 05/26/24 documented as of this encounter
--- OUTSIDE RECORDS SUMMARY | 2024-11-17 10:30 | XMS_ITS | Encounter Summary ---
[place] [address] Care Team Providers Care Mobile Home Park Manager Name Role Phone Victor M Lafleur MD Primary Care Provider [phone] Reason for Visit * Reason Onset Date Comments Referral 09/20/2023 Encounter Details Date Type Department Care Team (Late st Contact Info) Description 09/20/2023 Telephone Cardiology at [address] [address] Karen Billy, linesperson Social History Tobacco Use Types Packs/Day Years [...] PM EST Office Visit Cardiology at [address] [address] Sheila Johnson, MAURI 580 [facility], [facility] [place] [address] documented as of this encounter Visit Diagnoses Not on filedocumented in this encounter Care Teams Mobile Home Park Manager Relationship Specialty Start Date End Date Victor M Lafleur MD PCP - General 10/02/13 10/20/23 documented as of this encounter
--- OUTSIDE RECORDS SUMMARY | 2024-11-17 10:30 | XMS_ITS | Encounter Summary ---
Author Organization [facility] [place] [address] Care Team Providers Care Correctional Security Officer Name Role Phone Vanessa Christian Lane DOTSON Primary Care Provider [phone] Encounter Details Date Type Department Care Team (Late st Contact Info) Description 01/09/2024 2:30 PM EDT Clinical Support Same Day at [facility] [place] [phone] Social History Tobacco Use Types Packs/Day Years [...] type and screen performed while in the [facility]. Sent to Radiology for chest x-ray. Special medication instructions: None Procedure date: not booked. Darian documented in this encounter Plan of Treatment Upcoming Encounters Date Type Department Care Team (Late st Contact Info) Description 11/30/2024 3:00 PM EST Office Visit Cardiology at [address] [address] Sheila Johnson APRN [address] [place] [address], [facility] [place] [address] documented as of this encounter Visit Diagnoses Not on filedocumented in this encounter Care Teams Correctional Security Officer Relationship Specialty Start Date End Date Vanessa Christian APRN PCP - General Family Medicine 10/21/23 05/26/24 documented as of this encounter
--- OUTSIDE RECORDS SUMMARY | 2024-11-17 10:30 | XMS_ITS | Encounter Summary ---
Author Organization [facility] [place] [address] Care Team Providers Care Curator Horticultural Museum Name Role Phone Vanessa Christian APRN Primary Care Provider [phone] Encounter Details Date Type Department Care Team [...] PM EST Office Visit Cardiology at [address] [phone] Sheila Johnson APRN [address] [facility], [facility] [place] [address] documented as of this encounter Visit Diagnoses Not on filedocumented in this encounter Care Teams Curator Horticultural Museum Relationship Specialty Start Date End Date Vanessa Christian APRN PCP - General Family Medicine 10/21/23 05/26/24 documented as of this encounter
--- OUTSIDE RECORDS SUMMARY | 2024-11-17 10:30 | XMS_ITS | Encounter Summary ---
[place] [address] Care Team Providers Care Quality Associate Name Role Phone Vanessa Christian Lane DOTSON Primary Care Provider [phone] Reason for Referral * Diagnostic Test (Routine) - Closed Specialty Diagnoses / Procedures Referred By Contac t Referred To Contact Radiology Diagnoses Nonrheumatic aortic valve stenosis Procedures CT Chest wo Contrast (Generic) Louisa Cho PA [facility] DR CARDIOTHORACIC [place] [address] [facility] [place] [address] Referral ID Status Reason Start Date Expiration Date V isits Requested Visits Authorized [id number] Closed Specialty Service Requested 01/10/2024 07/11/2025 1 1 Reason for Visit * Diagnostic Test (Routine) - Closed Specialty Diagnoses / Procedures Referred By Contac t Referred To Contact Radiology Diagnoses Nonrheumatic aortic valve stenosis Procedures CT Chest wo Contrast (Generic) Louisa Cho PA [facility] CARDIOTHORACIC [place] [address] [facility] [place] [address] Referral ID Status Reason Start Date Expiration Date V isits Requested Visits Authorized [id number] Closed Specialty Service Requested 01/10/2024 07/11/2025 1 1 Encounter Details Date Type Department Care Team (Latest Contact Info) Description 02/03/2024 7:36 AM EDT - 02/03/2024 8:05 AM EDT Hospital Encounter [facility] [place] [address] Zak Farmer MD [facility] C[place]IOTHORACIC [place] [address] Nonrheumatic aortic valve stenosis Discharge Disposition: Home Social History Tobacco Use Types Packs/Day Years Used Date Smoking Tobacco: Former Cigarettes Smokeless Tobacco: Never Comments:Quit 15 + years ago Alcohol Use Standard Drinks/Week Comments Yes 0 (1 standard drink = 0.6 oz pur e alcohol) rare [facility] Inpatient Questions Answer Date Recorded Does Anyone [...] 3:00 PM EST Office Visit Cardiology at [place] [address] [place] [address] Sheila Johnson, DOCKING SAW OPERATOR 580 [facility], [facility] [place] [address] documented as of this encounter Procedures Procedure Name Priority Date/Time Associated Diagnosis Comments CT CHEST WO CONTRAST (GENERIC) Routine 02/03/2024 7:44 AM EDT Nonrheumatic aortic valve stenosis documented in this encounter Results * CT Chest wo Contrast (Generic) (02/03/2024 7:44 AM EDT) Pathologist [employer] WORKSTATION ID [id number] [facility] RAD Anatomical Region Laterality Modality Chest [...] have questions please contact the health direct support professional caregiver that requested your imaging first. ? Electronically signed by: Rogerio Wright MD, [facility] ([phone]), at 02/03/2024 10:00 AM Narrative 02/03/2024 10:00 [...] nodule along the minor fissure (series 302 [id number]) and a 8 mm right lower lobe [...] who have questions please contactthe health direct support professional caregiver that requested your imaging first. Electronically signed by: Rogerio Wright MD, [facility]([phone]), at 02/03/2024 10:00 AM Zak Farmre MD IMG CT ORDERABLES documented in this encounter Visit Diagnoses Diagnosis Nonrheumatic aortic valve stenosis Aortic valve disorders documented in this encounter Care Teams Quality Associate Relationship Specialty Start Date End Date Vanessa Christian APRN PCP - General Family Medicine 10/21/23 05/26/24 documented as of this encounter
--- OUTSIDE RECORDS SUMMARY | 2024-11-17 10:30 | XMS_ITS | Encounter Summary ---
Author Organization [facility] [place] [address] Care Team Providers Care Cook Syrup Maker Name Role Phone Vanessa Christian MAURI Primary Care Provider [phone] Encounter Details Date Type Department Care Team (Late st Contact Info) Description 01/10/2024 Orders Only [place] [phone] Lawson Napoles PA [facility] [place] [address] Screening for cardiovascular condition; Aortic valve stenosis, [...] PM EST Office Visit Cardiology at [address] [place] [phone] Sheila Johnson APRN [address] [facility] [address], [place] [address] documented as of this encounter Visit Diagnoses Diagnosis Screening for cardiovascular condition Screening for other and unspecified cardiovascular conditions Aortic valve stenosis, etiology of cardiac valve disease unspecified documented in this encounter Care Teams Cook Syrup Maker Relationship Specialty Start Date End Date Vanessa Christian APRN PCP - General Family Medicine 10/21/23 05/26/24 documented as of this encounter
--- OUTSIDE RECORDS SUMMARY | 2024-11-17 10:30 | XMS_ITS | Encounter Summary ---
[place] [address] Care Team Providers Care Friction Welding Machine Operator Name Role Phone Vanessa Christian MAURI Primary Care Provider [phone] Reason for Visit * Auth/Cert (Routine) Specialty [...] (WRVU 5.9) Rima Dickinson MD [facility] [place] [address] [facility] Referral ID Status Reason Start Date Expiration Date Visits Re quested Visits Authorized [id number] 1 1 Encounter Details Date Type Department Care Team (Late st Contact Info) Description 02/03/2024 10:00 AM EDT - 02/03/2024 11:00 AM EDT [place] [address] Saira Lua MD CARDIAC CATHETERIZATION Social History [...] lbs Follow-up Visits Follow up with your economics instructor in 2-4 weeks Access Site 'Black and Blue' and tenderness is expected during the first week Call if you noted a mass (lump) greater than the size of a ellis Call Office with any Questions and if you have any of the following Clarence Lane M.D Interventional Plastics Repairer Urban Sociologist #: [phone] * Attachments The following attachments cannot be [...] Pre-Procedure H&P Update: Cardiac Catheterization Karlos Anthony [id number] 1960 Chief Complaint: Aortic stenosis HPI: Mr. [...] is inthe chart Clarence Lane MD Interventional Plastics Repairer 02/03/24 11:48 AM documented in this encounter Miscellaneous Notes * Brief Op Note - Clarence Lane MD - 02/03/2024 12:51 PM EDT Preliminary Cardiac Catheterization Procedure Note: Patient Name: Karlos Anthony : [id number] MR#: [id number] Case Date: 02/03/2024 Urban Sociologist: Surgeon(s) and Role: * Saira Lua MD [...] 3:00 PM EST Office Visit Cardiology at [place] [address] [place] [address] Sheila Johnson, MAURI 580 [facility], [facility] [place] [address] Scheduled Orders Name Type Priority Associated Diagnoses [...] Narrative 02/12/2024 3:47 PM EDT ?[facility] ? Cardiac Catheterization/Intervention Report ? Patient Name: Patenaude, Karlos ? Procedure Date: 02/03/2024 ? A #: [id number] ? Primary Physician: Saira Lua ? Case #: [id number] ? File Name: [id number] ? Catheterization Order Number: [id number] ? [facility] ? Final Report [place], [place] ? Patient Name: ? Karlos Patenaude ? ID#: ?[id number] ? : ?1960 ? Procedure Date: ? [...] Saira Lua MD - 02/12/2024 [facility] Cardiac Catheterization/Intervention Report Patient Name: Karlos Anthony Procedure Date: 02/03/2024 A #: [id number] Primary Physician: Saira Lua Case #: [id number] File Name: [id number] Catheterization Order Number: [id number] [facility] [place], [place] Patient Name: Karlos Anthony ID#:[id number] :1960 Procedure Date: February 03, 2024 Case [...] was designated as ASA Class III. The [facility] clinical frailty scale is 3: [...] 372 ms MUSE SYSTEM Calculated P [place] 59 degrees MUSE SYSTEM Calculated R [place] 34 degrees MUSE SYSTEM Calculated T [place] 63 degrees MUSE SYSTEM INTERPRETATION Sinus bradycardia [...] MD) documented in this encounter Care Teams Friction Welding Machine Operator Relationship Specialty Start Date End Date Vanessa Christian, MAURI PCP - General Family Medicine 10/21/23 05/26/24 documented as of this encounter
--- OUTSIDE RECORDS SUMMARY | 2024-11-17 10:30 | XMS_ITS | Encounter Summary ---
Author Organization [facility] [place] [address] Care Team Providers Care Multiple Needle Stitcher Name Role Phone Victor M Lafleur MD Primary Care Provider [phone] Encounter Details Date Type Department Care Team (Late st Contact Info) Description 09/26/2023 Abstract Cardiology at [address] [address] Karen Billy, RN Nonrheumatic aortic [...] PM EST Office Visit Cardiology at [address] [address] Sheila Johnson APRN [address] [place] [address], [facility] CARDIOLOGY [place], [place] [phone] documented as of this encounter Visit Diagnoses Diagnosis Nonrheumatic aortic valve stenosis Aortic valve disorders Nevus of face Benign neoplasm of skin of other and unspecified parts of face documented in this encounter Care Teams Multiple Needle Stitcher Relationship Specialty Start Date End Date Victor M Lafleur MD PCP - General 10/02/13 10/20/23 documented as of this encounter
--- OUTSIDE RECORDS SUMMARY | 2024-11-17 10:30 | XMS_ITS | Encounter Summary ---
Author Organization [facility] [place] [address] Care Team Providers Care Crayon Molding Machine Operator Name Role Phone Vanessa Christian APRN Primary Care Provider [phone] Encounter Details Date Type Department Care Team (Late st Contact Info) Description 10/21/2023 Abstract Cardiology at [address] [phone] Adam Mayes RN Social History Tobacco Use [...] PM EST Office Visit Cardiology at [address] [address] Sheila Johnson APRN 580 [facility], [facility] [place] [address] documented as of this encounter Visit Diagnoses Not on filedocumented in this encounter Care Teams Crayon Molding Machine Operator Relationship Specialty Start Date End Date Vanessa Christian APRN PCP - General Family Medicine 10/21/23 05/26/24 documented as of this encounter
--- OUTSIDE RECORDS SUMMARY | 2024-11-17 10:30 | XMS_ITS | Encounter Summary ---
Author Organization [facility] Address [facility] [place] [address] Care Team Providers Care Knockout Worker Name Role Phone Vanessa Christian TORCH BURNER Primary Care Provider Reason for Referral * Diagnostic Test (Routine) - Closed Specialty Diagnoses / Procedures Referred By Contac t Referred To Contact Radiology Diagnoses Nonrheumatic aortic valve stenosis Procedures CT Chest wo Contrast (Generic) Louisa Reid PA [facility] C[place]OTH[place] [address] [facility] [place] [address] Referral ID Status Reason Start Date Expiration Date V isits Requested Visits Authorized [id number] Closed Specialty Service Requested 01/10/2024 07/11/2025 1 1 Encounter Details Date Type Department Care Team (Late st Contact Info) Description 01/09/2024 Orders [place] [address] Zak Farmer MD [facility] [place]AC[place] [address] Nonrheumatic aortic valve stenosis Social History Tobacco [...] PM EST Office Visit Cardiology at [address] [address] Sheila Johnson APRN 580 [facility] [place] [address] documented as of this encounter Results * CT Chest wo Contrast (Generic) (02/03/2024 7:44 AM EDT) [employer] Signature WORKSTATION ID [id number] RAD Anatomical Region Laterality Modality Chest Computed [...] questions please contact the health health care technician that requested your imaging first. ? Electronically signed by: Rogerio Wright MD, [facility] ([phone]), at 02/03/2024 10:00 AM Narrative 02/03/2024 10:00 [...] nodule along the minor fissure (series 302 [id number]) and a 8 mm right lower lobe [...] have questions please contactthe health health care technician that requested your imaging first. Electronically signed by: Rogerio Wright MD, [facility]([phone]), at 02/03/2024 10:00 AM Zak Farmer MD IMG CT ORDERABLES documented in this encounter Visit Diagnoses Diagnosis Nonrheumatic aortic valve stenosis Aortic valve disorders Nonrheumatic aortic valve stenosis Aortic valve disorders documented in this encounter Care Teams Knockout Worker Relationship Specialty Start Date End Date Vanessa Christian APRN PCP - General Family Medicine 10/21/23 05/26/24 documented as of this encounter
--- OUTSIDE RECORDS SUMMARY | 2024-11-17 10:30 | XMS_ITS | Encounter Summary ---
Author Organization [facility] Address [facility] Ivana linareseileen [place] [id number] Care Team Providers Care Stucco Plasterer Name Role Phone Vanessa Christian MAURI Primary Care Provider [phone] Reason for Referral * Consultation (Routine) - Closed Specialty Diagnoses / Procedures Referred By Contac t Referred To Contact Cardiac Surgery Diagnoses Nonrheumatic aortic valve stenosis significant - TAVR ( defers to Card Surg d/t age) Errol Loya MD [facility] [place] [address] [facility] CARDIOTHORACIC [place] [address] Referral ID Status Reason Start Date Expiration Date V isits Requested Visits Authorized [id number] Closed Consult, Test & Treat 10/21/2023 10/20/2024 1 1 Reason for Visit * Reason Comments Chest Pain Shortness of Breath Aortic Stenosis Encounter Details Date Type Department Care Team (Late st Contact Info) Description 10/21/2023 1:20 PM EST Office Visit Cardiology at [address] [address] [facility] [place] [address] Nonrheumatic aortic valve stenosis Social History Tobacco [...] findings Gastroesophageal reflux Nevus of face Right methodist Hypertension HLD (hyperlipidemia) MEDICATIONS: Current Outpatient Medications [...] PM EST Office Visit Cardiology at [address] [address] Sheila Johnson APRN 580 [facility], [facility] [address] Scheduled Referrals Name Type Priority Associated Diagnoses Order Schedule Amb Referral to Structural Heart Outpatient Referral Routine Nonrheumatic aortic valve stenosis Ordered: 10/21/2023 documented as of this encounter Visit Diagnoses Diagnosis Nonrheumatic aortic valve stenosis Aortic valve disorders documented in this encounter Care Teams Stucco Plasterer Relationship Specialty Start Date End Date Vanessa Christian APRN PCP - General Family Medicine 10/21/23 05/26/24 documented as of this encounter
--- OUTSIDE RECORDS SUMMARY | 2024-11-17 10:30 | XMS_ITS | Encounter Summary ---
Author Organization [facility] [place] [address] Care Team Providers Care Principal Accounts Clerk Name Role Phone Vanessa Christian Lane DOTSON Primary Care Provider Encounter Details Date Type Department Care Team (Latest Contact Info) Description 01/09/2024 3:00 PM EDT Laboratory [place] [phone] Nonrheumatic aortic valve stenosis Social History Tobacco Use Types Packs/Day Years Used Date Smoking Tobacco: Former Cigarettes Smokeless Tobacco: Never Comments:Quit 15 + years ago Alcohol Use Standard Drinks/Week Comments Yes 0 (1 standard drink = 0.6 oz pur e alcohol) rare [facility] Inpatient Questions Answer Date Recorded Prevent Contact [...] 3:00 PM EST Office Visit Cardiology at [place] [address] [place] [phone] Sheila Johnson APRN 580 [facility], [place] [address] documented as of this encounter Procedures Procedure Name Priority Date/Time Associated Diagnosis Comments ABORH RECHECK STATUS Routine 01/09/2024 2:58 PM EDT HEMOGRAM Routine 01/09/2024 2:58 PM EDT Nonrheumatic aortic valve stenosis DIFFERENTIAL, AUTOMATED Routine 01/09/2024 2:58 PM EDT Nonrheumatic aortic valve stenosis TYPE AND SCREEN, SDP (FUTURE SURGERY, [facility] SAME DAY PROGRAM ONLY) Routine 01/09/2024 2:58 [...] [facility] [place] [address] * Differential, Automated (01/09/2024 2:58 PM EDT) Neutrophil % 70.5 % [facility] Neutrophil Absolute 4.34 1.70 - 6.10 x10(3)/[facility] LAB[facility] Lymph % 18.9 % [facility] Lymphocytes Abs 1.2 0.9 - 3.2 x10(3)/[facility] LABORATORY Monocyte % 8.0 % [facility] Monocyte Abs 0.5 0.3 - 0.9 x10(3)/[facility] LABOR[facility]ORY Eos % 1.6 % [facility] Eosinophils Abs 0.1 0.0 - 0.4 x10(3)/[facility] LABORATORY Basophil % 0.5 % [facility] Baso Absolute 0.0 0.0 - 0.1 x10(3)/[facility] LABORATORY Immature Gran % 0.50 % WHITE [...] [facility] [place] [address] * Hemogram (01/09/2024 2:58 PM EDT) [facility] NRBC% auto 0.0 % [facility] NRBC Absolute 0.000 0.000 - 0.000 x10(3)/[facility] LABORATORY Blood 01/09/2024 2:58 PM EDT 01/09/2024 3:03 PM EDT Narrative Resulting Agency Comment Spec In Lab Zak Farmer MD HEMATOLOGY ORDERABL ES [facility] [place] [address] * Basic Metabolic Panel (non-fasting) (01/09/2024 2:58 [...] [facility] [place] [address] * Hepatic Function Panel (01/09/2024 2:58 PM [...] ORDERABLE S Performing Organization Address [facility] Co de Phone Number [facility] [place] [address] * Prothrombin Time (01/09/2024 2:58 PM EDT) [...] ORDERABL ES Performing Organization Address [facility] Co de Phone Number [facility] [place] [address] * Type and Screen Future Surgery, [facility] SAME DAY PROGRAM ONLY) (01/09/2024 2:58 PM EDT) Pathologist [facility] ABORH Type O NEGATIVE [facility] [...] Farmer MD BLOOD BANK LAB ORDE RAB[place] [id number] documented in this encounter Visit Diagnoses Diagnosis Nonrheumatic aortic valve stenosis Aortic valve disorders documented in this encounter Care Teams Principal Accounts Clerk Relationship Specialty Start Date End Date Vanessa Christian APRN PCP - General Family Medicine 10/21/23 05/26/24 documented as of this encounter
[2024-11-17 10:46] VITALS: BP 130/64; PULSE 61
--- OUTSIDE RECORDS SUMMARY | 2024-11-19 09:52 | XMS_ITS | Clinical Summary ---
Author Organization [facility] Address [facility] [place] [address] Care Team Providers Care External Grinder Tender Name Role Phone Vanessa Christian Lane DOTSON Primary Care Provider [phone] Allergies No known active allergies Medications Medication [...] of face 09/26/2023 05/27/2024 Overview (09/26/2023): Right faith Chest pressure 08/14/2023 10/21/2023 SILVA (dyspnea on [...] PM EST Office Visit Cardiology at [address] [address] Sheila Johnson APRN 580 [facility], [place] [address] Health Maintenance Due Date Last Done Comments [...] series) 06/07/2024 Medical Devices Implanted Type Area Poolroom/Poolhall Manager Device Identifier Shelf Expiration Date Model / Serial / Lot Cable,Cut,Edg ,Blnt,Ss,3tpr ([id number]) - [id number] Implanted:Qty : 1 on 02/17/2024 by Zak Farmer MD at [facility] IMPLANTS Midline: Chest [employer] - [id number] 09/02/2028 [id number] / / [id number] Valve Coronary Aortic 23mm Tissue Trnscath Biopros Inspiris ([id number]) (Autoreq) - [id number] Implanted:Qty : 1 on 02/17/2024 by Zak Farmer MD at [facility] IMPLANTS Heart [employer] - TSAI LI 09/15/2027 [id number] 23MM / [id number] / Advance Directives * Attempt Cardiopulmonary Resuscitation [...] Status decision made by: Patient Care Teams External Grinder Tender Relationship Specialty Start Date End Date Vanessa Christian APRN [address] [place] [address] PCP - General Family Medicine 05/27/24
--- OUTSIDE RECORDS SUMMARY | 2024-11-19 09:52 | XMS_ITS | Encounter Summary ---
Author Organization [facility] Address [address] [place] [address] Care Team Providers Care Agency Sales Representative Name Role Phone Filidayna Vanessa Dayna MONCADA Primary Care Provider [phone] Encounter Details Date Type Department Care Team (Late st Contact Info) Description 10/24/2023 Lab Requisition [facility] Pathology & Laboratory Medicine - [address] [address] Oscar Nichole MD [address] [place] [id number] Factitial dermatitis Social History Tobacco Use Types [...] management options, if applicable. 10/28/2023 11:24 EST [facility] Final Diagnosis A. SKIN OF TAOIST, LEFT, SHAVE BIOPSY: - Seborrheic keratosis, pigmented. 10/28/2023 11:24 EST [facility] Attestation By the [...] [facility] Performing Lab [facility] 10/28/2023 11:24 [facility] Scanned Images 10/28/2023 11:24 [facility] Tissue SPECIMEN FROM SKIN / Unknown 10/24/2023 14:30 EST 10/24/2023 22:04 EST us Oscar Nichole MD PATHOLOGY ORDERABLES Final Resul t [facility] [address] [place] [address] documented in this encounter Visit Diagnoses Diagnosis Factitial dermatitis Dermatitis factitia (artefacta) documented in this encounter Care Teams Agency Sales Representative Relationship Specialty Start Date End Date Vanessa Christian NP [address] [place] [address] PCP - General Family Medicine - Primary Care 10/07/23 documented as of this encounter
--- OUTSIDE RECORDS SUMMARY | 2024-11-19 09:52 | XMS_ITS | Encounter Summary ---
Author Organization [facility] Address [place] [address] Care Team Providers Care Surface Water Manager Name Role Phone Vanessa Christian MAURI Primary Care Provider [phone] Encounter Details Date Type Department Care Team [...] PM EST Office Visit Cardiology at [address] [address] Sheila Johnson APRN [address] [place] [address], [facility] [place] [address] documented as of this encounter Visit Diagnoses Not on filedocumented in this encounter Care Teams Surface Water Manager Relationship Specialty Start Date End Date Vanessa Christian APRN PCP - General Family Medicine 10/21/23 05/26/24 documented as of this encounter
--- OUTSIDE RECORDS SUMMARY | 2024-11-19 09:52 | XMS_ITS | Referral Summary ---
Author Organization [facility] Address [address] [place] [address] Care Team Providers Care Publications Distribution Clerk Name Role Phone Vanessa Christian Lane MONCADA Primary Care Provider Social History Tobacco Use Types Packs/Day Years Used Date Smoking Tobacco: Never Assessed Sex and Gender Information Value Date Recorded Sex Assigned at Not on file Legal Sex Male 22:02 EST Gender Identity Not on file Sexual Orientation Not on file Plan of Treatment Not on file Insurance [facility] Care Teams Publications Distribution Clerk Relationship Specialty Start Date End Date Vanessa Christian, ANTWAN [address] [place] [phone] PCP - General Family Medicine - Primary Care 10/07/23
--- OUTSIDE RECORDS SUMMARY | 2024-11-19 09:52 | XMS_ITS | Encounter Summary ---
Author Organization [facility] Address [facility] [place] [address] Care Team Providers Care Windows Administrator Name Role Phone Vanessa Christian MAURI Primary Care Provider [phone] Encounter Details Date Type Department Care Team [...] PM EST Office Visit Cardiology at [address] [address] Sheila Johnson APRN [address] [place] [address], [facility] [place] [address] documented as of this encounter Visit Diagnoses Not on filedocumented in this encounter Care Teams Windows Administrator Relationship Specialty Start Date End Date Vanessa Christian APRN PCP - General Family Medicine 10/21/23 05/26/24 documented as of this encounter
--- OUTSIDE RECORDS SUMMARY | 2024-11-19 09:52 | XMS_ITS | Encounter Summary ---
Author Organization [facility] Address [facility] [place] [address] Care Team Providers Care Mill Crane Operator Name Role Phone Vanessa Christian Lane DOTSON Primary Care Provider [phone] Reason for Visit * Reason Comments Coronary Artery Disease Aortic Stenosis Encounter Details Date Type Department Care Team (Latest Contact Info) Description 05/27/2024 11:00 AM EDT Office Visit Cardiology at [address] [phone] Neftali Ernandez MD [facility] [address] ASCVD (arteriosclerotic cardiovascular disease); Nonrheumatic aortic valve stenosis Social History Tobacco Use Types Packs/Day Years Used Date Smoking Tobacco: Former Cigarettes Smokeless Tobacco: Never Comments:Quit 15 + years ago Alcohol Use Standard Drinks/Week Comments Yes 0 (1 standard drink = 0.6 oz pur e alcohol) rare [facility] Utilities Answer Date Recorded In the past 12 months has e [employer], gas, oil, or water [employer] threatened to shut off services in your [...] PM EST Office Visit Cardiology at [address] [address] Sheila Johnson APRN [address] [facility], [facility] [place] [address] documented as of this encounter Visit Diagnoses Diagnosis ASCVD (arteriosclerotic cardiovascular disease) Unspecified cardiovascular disease Nonrheumatic aortic valve stenosis Aortic valve disorders documented in this encounter Care Teams Mill Crane Operator Relationship Specialty Start Date End Date Vanessa Christian APRN [address] [place] [address] PCP - General Family Medicine 05/27/24 documented as of this encounter
--- OUTSIDE RECORDS SUMMARY | 2024-11-19 09:52 | XMS_ITS | Encounter Summary ---
Author Organization [facility] Address [facility] [place] [address] Care Team Providers Care Volunteer Services Supervisor Name Role Phone Vanessa Christian LABORATORY ANIMAL CARETAKER Primary Care Provider [phone] Encounter Details Date Type Department Care Team (Late st Contact Info) Description 03/12/2024 2:40 PM EDT Office Visit [place] [phone] Zak Farmer MD [facility] C[place]IOTH[place]ACIC [place] [address] Coronary artery disease, unspecified vessel or lesion type, unspecified whether angina present, unspecified whether [place] or transplanted heart Social History Tobacco Use Types Packs/Day Years Used Date Smoking Tobacco: Former Cigarettes Smokeless Tobacco: Never Comments:Quit 15 + years ago Alcohol Use Standard Drinks/Week Comments Yes 0 (1 standard drink = 0.6 oz pur e alcohol) rare [facility] Utilities Answer Date Recorded In the past 12 months has e [employer], gas, oil, or water [employer] threatened to shut off services in [...] 2:40 PM EDT To: MD Vanessa Coles, LABORATORY ANIMAL CARETAKER Re; Karlos Santa ( 1960) We had [...] office. Best personal regards, Zak Farmer MD [phone] documented in this encounter Plan of Treatment Upcoming Encounters Date Type Department Care Team (Late st Contact Info) Description 11/30/2024 3:00 PM EST Office Visit Cardiology at [place] [address] [place] [address] Sheila Johnson, MAURI 580 [facility], [facility] [place] [address] documented as of this encounter Procedures Procedure Name Priority Date/Time Associated Diagnosis Comments EKG 12-LEAD Routine 03/12/2024 2:35 PM EDT Coronary artery disease, unspecified vessel or lesion type, unspecified whether angina present, unspecified whether wales or transplanted heart documented in this encounter Results * EKG 12 Lead (03/12/2024 2:35 PM EDT) Ventricular rate 59 BPM MUSE SYSTEM Atrial Rate 59 BPM MUSE SYSTEM P-R Interval 190 ms MUSE SYSTEM QRS Duration 92 ms MUSE SYSTEM Q-T Interval 406 ms MUSE SYSTEM QTC Calculated (Bezet) 401 ms MUSE SYSTEM Calculated P Franklin -12 degrees MUSE SYSTEM Calculated R Franklin 24 degrees MUSE SYSTEM Calculated T Franklin 74 degrees MUSE SYSTEM INTERPRETATION Sinus bradycardia T wave abnormality, consider anterior ischemia Abnormal ECG When compared with ECG of 17-FEB-2024 13:24, IN interval has decreased T wave inversion now evident in Anterior leads Confirmed by Paul Guzman ([id number]) on 03/15/2024 8:36:23 AM MUSE SYSTEM 03/12/2024 2:35 PM EDT 03/15/2024 8:36 AM EDT Zak Farmer MD ECG ORDERABLES MUSE SYSTEM documented in this encounter Visit Diagnoses Diagnosis Coronary artery disease, unspecified vessel or lesion type, unspecified whether angina present, unspecified whether wales or transplanted heart documented in this encounter Care Teams Volunteer Services Supervisor Relationship Specialty Start Date End Date Vanessa Christian APRN PCP - General Family Medicine 10/21/23 05/26/24 documented as of this encounter
--- OUTSIDE RECORDS SUMMARY | 2024-11-19 09:52 | XMS_ITS | Clinical Summary ---
Author Organization [facility] Address [address] [place] [address] Care Team Providers Care Fire Pilot Name Role Phone Filidayna Vanessa Sherman NP Primary Care Provider [phone] Social History Tobacco Use Types Packs/Day Years [...] 75+ series) 2034 Insurance [employer] Care Teams Fire Pilot Relationship Specialty Start Date End Date Vanessa Christian, ANTWAN [address] [place] [phone] PCP - General Family Medicine - Primary Care 10/07/23
--- OUTSIDE RECORDS SUMMARY | 2024-11-19 09:52 | XMS_ITS | Encounter Summary ---
Author Organization [facility] Address [facility] [place] [address] Care Team Providers Care Licensed Architect Name Role Phone Vanessa Christian MAURI Primary Care Provider [phone] Encounter Details Date Type Department Care Team [...] PM EST Office Visit Cardiology at [address] [phone] Sheila Johnson APRN [address] [place] [address], [place] [address] documented as of this encounter Visit Diagnoses Not on filedocumented in this encounter Care Teams Licensed Architect Relationship Specialty Start Date End Date Vanessa Christian APRN [address] [place] [address] PCP - General Family Medicine 05/27/24 documented as of this encounter
--- OUTSIDE RECORDS SUMMARY | 2024-11-19 09:52 | XMS_ITS | Encounter Summary ---
Author Organization Counts Include [facility] Address [facility] [place] [address] Care Team Providers Care Technology Architect Name Role Phone Vanessa Christian MAURI Primary Care Provider [phone] Encounter Details Date Type Department Care Team (Latest Contact Info) Description 03/12/2024 1:30 PM EDT - 03/12/2024 11:59 PM EDT Hospital Encounter XRay at [address] [place] [address] Coronary artery disease, unspecified vessel or lesion type, unspecified whether angina present, unspecified whether [place] or transplanted heart Discharge Disposition: Home Social History Tobacco Use Types Packs/Day Years Used Date Smoking Tobacco: Former Cigarettes Smokeless Tobacco: Never Comments:Quit 15 + years ago Alcohol Use Standard Drinks/Week Comments Yes 0 (1 standard drink = 0.6 oz pur e alcohol) rare [facility] Utilities Answer Date Recorded In the past 12 months has e [employer], gas, oil, or water [employer] threatened to shut off services in your [...] 3:00 PM EST Office Visit Cardiology at [place] [address] [place] [address] Sheila Johnson, MAURI 580 [facility], [facility] [place] [address] documented as of this encounter Procedures Procedure Name Priority Date/Time Associated Diagnosis Comments XR CHEST PA AND LATERAL Routine 03/12/2024 1:42 PM EDT Coronary artery disease, unspecified vessel or lesion type, unspecified whether angina present, unspecified whether [place] or transplanted heart documented in this encounter Results * XR Chest PA & Lateral (Generic) (03/12/2024 1:42 PM EDT) Pathologist [employer] WORKSTATION ID [id number] RAD Anatomical Region Laterality Modality Chest N/A [...] questions please contact the health day care teacher that requested your imaging first. ? Electronically signed by: Augie Sanchez MD, [facility] ([phone]), at 03/13/2024 8:28 AM Narrative 03/13/2024 8:28 [...] have questions please contactthe health day care teacher that requested your imaging first. Electronically signed by: Augie Sanchez MD, [facility]([phone]), at 03/13/2024 8:28 AM Zak Farmer MD IMG DX ORDERABLES documented in this encounter Visit Diagnoses Diagnosis Coronary artery disease, unspecified vessel or lesion type, unspecified whether angina present, unspecified whether [place] or transplanted heart documented in this encounter Care Teams Technology Architect Relationship Specialty Start Date End Date Vanessa Christian APRN PCP - General Family Medicine 10/21/23 05/26/24 documented as of this encounter
--- OUTSIDE RECORDS SUMMARY | 2024-11-19 09:52 | XMS_ITS | Encounter Summary ---
Author Organization [facility] Address [facility] [place] [address] Care Team Providers Care Gas Line Installer Name Role Phone Gino Vanessa Lane DOTSON Primary Care Provider [phone] Encounter Details Date Type Department Care Team (Late st Contact Info) Description 02/24/2024 Orders Only Cardiac Surgery [facility] [place] [phone] Trudi Lester APRN [facility] [place] [address] Social History Tobacco Use Types Packs/Day Years Used Date Smoking Tobacco: Former Cigarettes Smokeless Tobacco: Never Comments:Quit 15 + years ago Alcohol Use Standard Drinks/Week Comments Yes 0 (1 standard drink = 0.6 oz pur e alcohol) rare [facility] Utilities Answer Date Recorded In the past 12 months has e [employer], gas, oil, or water [employer] threatened to shut off services in your [...] PM EST Office Visit Cardiology at [address] [phone] Sheila Johnson APRN [address] [place] [address], [facility] [place] [place] [address] documented as of this encounter Visit Diagnoses Not on filedocumented in this encounter Care Teams Gas Line Installer Relationship Specialty Start Date End Date Vanessa Christian APRN PCP - General Family Medicine 10/21/23 05/26/24 documented as of this encounter
--- OUTSIDE RECORDS SUMMARY | 2024-11-19 09:53 | XMS_ITS | Encounter Summary ---
Author Organization [facility] [place] [address] Care Team Providers Care Rag Washer Name Role Phone Vanessa Christian MAURI Primary Care Provider [phone] Reason for Visit * Auth/Cert (Routine) Specialty [...] ARTERIAL GRAFT (WRVU 7.93) Zak Farmer MD [facility] CARDIOTHORACIC [place] [address] [facility] Referral ID Status Reason Start Date Expiration Date Visits Re quested Visits Authorized [id number] 1 1 Encounter Details Date Type Department Care Team (Late st Contact Info) Description 02/17/2024 7:35 AM EDT Anesthesia Event Main Operating Room [facility] [place] [phone] Roman York MD [facility] [place] [address] Anesthesia Record Procedure Summary Procedure Name Responsible [...] by Driss Moncada RN 02/17/24 2100 by Ambre Garcia RN Chest Tube 02/17/24; Chest Tube [...] by Sadiq Woo RN PIV 02/17/24; 0715; [id number] catheter system; 18 gauge; cephalic vein (lateral [...] 0.6 oz pur e alcohol) rare [facility] Utilities Answer Date Recorded In the past 12 months has th e electric, gas, oil, or water [employer] threatened to shut off services in your [...] Room / Location: [facility] OR [address] [place] [address] MAIN OR Anesthesia Start: 734 Anesthesia Stop: [...] unfiled device data. Patient Location: [facility] Level of Consciousness: Sedated (Pharmacologic/Intentional) Pain [...] 08/14/2023 ??? 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 Social [...] PM EST Office Visit Cardiology at [address] [place] [address] Sheila Johnson, [employer] [address] [facility] [place], [place] [address] documented as of this encounter [...] mg documented in this encounter Care Teams Rag Washer Relationship Specialty Start Date End Date Vanessa Christian APRN PCP - General Family Medicine 10/21/23 05/26/24 documented as of this encounter
--- OUTSIDE RECORDS SUMMARY | 2024-11-19 09:53 | XMS_ITS | Encounter Summary ---
[facility] Organization [facility] [place] [address] Care Team Providers Care Test Driller Name Role Phone Aparna Jordan MAURI Primary Care Provider [phone] Reason for Visit * Auth/Cert (Routine) Specialty [...] Graham MD [facility] CARDIOTHORAC[place] [address] [facility] Referral ID Status Reason Start Date Expiration Date Visits Re quested Visits Authorized [id number] 1 1 Encounter Details Date Type Department Care Team (Late st Contact Info) Description 02/17/2024 7:30 AM EDT - 02/17/2024 1:26 PM EDT Surgery [place] [id number] Hayder Graham MD [facility] CARDI[facility]AC[facility] [place] [address] ENDOSCOPIC HARVEST VEIN(S) FOR CABG (WRVU 0.31) [...] Patient Age: 63 y.o. Birthdate: 1960 Language: Albanian Race: White Ethnicity: Not nor Admit Date: 02/17/2024 Discharge Date: 02/24/24 Attending Physician: Hayder Graham MD Follow-up Recommendations for Providers: Please continue routine management of cardiovascular risk factors including blood pressure, lipids,glucose, etc. Please note any changes to medications. Patient to follow up with PCP, Aparna Jordan APRN, in 1-2 weeks. Patient to follow up with It Service Continuity Supervisor, Neftali Ernandez MD , in 2 weeks. Patient to follow up with Cardiac Surgeon, Dr. Hayder Graham, with a chest x-ray, EKG, and Echo. Inpatient Provider Contact Information: [facility] Section of Cardiac Surgery [facility] [place] [address] FAX [phone] Discharge Diagnoses (Hospital Problems) Primary Diagnoses: /CAD [...] 33.75) performed by Hayder Graham MD at [facility] MAIN OR PRO CABG, ARTERY-VEIN, TWO N/A 02/17/2024 @CABG, TWO VENOUS GRAFTS & ARTERIAL GRAFT (WRVU 7.93) performed by Hayder Graham MD at [facility] MAIN OR PRO ENDOSCOPY W/VIDEO-ASST VEIN HARVEST, CABG Left 02/17/2024 ENDOSCOPIC HARVEST VEIN(S) FOR CABG (WRVU 0.31) performed by Hayder Graham MD at [facility] MAIN OR PRO REPLACEMENT PROSTHETIC AORTIC VALVE OPEN W CARDIOPULMONARY BYPASS HOMOGRF/STENT N/A 02/17/2024 @REPLACE AORTIC VALVE, OPEN, W\CPB, W\PROSTHETIC VALVE (WRVU 41.32) performed by Hayder Graham MD at [facility] MAIN OR Prior To Admission [...] insufficiency. He has glaucoma. He used to bacLUBB-TEX until about 15 years ago. He has undergone prior herniorrhaphy. 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 Major Procedures/Operations: 02/17/24 s/p avr/cabgx3 CABG x 3 JOSE->LAD SVG->dRCA SVG->OM1 EVH from LLE AVR with a 23 mm Inspiris Bioprosthesis Hospital Course: Karlos Garcia was admitted to [facility] on 02/17/2024 via the Same [...] Hayder Graham and/or the Cardiac Surgery Physician Deposit Refund Clerk Team may be reached at . Antibiotic [...] Please refer to the card with the Russian Heart Association Guidelines for more information. You [...] Dr. Hayder Graham. You may use a [place] Track or treadmill but avoid any pulling [...] should resume a low fat, low cholesterol, Russian Heart Association Diet. Driving: No driving until [...] while being managed by your PCP and/or It Service Continuity Supervisor. For future medication refills, please refer to your PCP and/or It Service Continuity Supervisor after your discharge from our service. Thank you REMOVE CHEST TUBE SUTURES ON OR AFTER 03/02/24 Home oxygen therapy: N/A Follow up appointments: You should follow up with your PCP, Aparna Jordan APRN, in 1-2 weeks. Our office will schedule an appointment with your It Service Continuity Supervisor, Neftali Ernandez MD , in 2 [...] Future Orders Complete By Expires Echocardiogram Transthoracic [63513 CPT(R)] 03/26/2024 09/25/2024 Process Instructions: Scheduling Instructions: Questions: Where will study be performed?: [facility] Clinics Does the patient have Congenital Heart Disease?: Does patient require sedation?: Sedation rationale: XR Chest PA & Lateral (Generic) [17684 77732 Custom] 03/26/2024 09/25/2024 Process Instructions: Scheduling Instructions: Questions: Portable exam?: Reason for exam and clinical history: s/p avr/cabg Clinical information / jerome questions for radiologist: Stat read required?: Date of injury if applicable: Requested Time: Where will study be performed?: [facility] Radiology Referral to Cardiac Rehab [[id number] Custom] As directed Process Instructions: If no [...] admission to Home Health. [address] Phone Number: Date of : 1960 Inpatient DOCUMENTATION FOR VNA SERVICES (INCLUDING THOSE PATIENTS WITH MEDICARE COVERAGE REQUIRING HOME VNA SERVICES AND/OR HOSPICE SERVICES) PATIENT'S LOCATION: Karlos Garcia [address] [employer] [phone] Clinical Informatics Strategist's Name: self/family In discussion with the attending physician, it is certified that this patient is under their care and that they, or a Nurse Practitioner, or Physician Deposit Refund Clerk who is working directly with them, hada [...] for services as follows: HOME HEALTH AGENCY: [facility] [address] [place] [id number] RN orders: Cardiopulmonary assessment, incisional assessment, assess [...] issues please call the Cardiology Office at [phone] FOR MEDICARE ONLY: (please delete this section [...] [facility] Section of Cardiac Surgery [facility] [place] [address] FAX [phone] Date: 02/24/2024 CC: Aparna Jordan, MAURI Jordan, Aparna Sherman APRN [address] [place] [address] documented in this encounter Discharge Instructions * [...] Hayder Graham and/or the Cardiac Surgery Physician Deposit Refund Clerk Team may be reached at . Antibiotic [...] Please refer to the card with the Russian Heart Association Guidelines for more information. You [...] Dr. Hayder Graham. You may use a [place] Track or treadmill but avoid any pulling [...] should resume a low fat, low cholesterol, Russian Heart Association Diet. Driving: No driving until [...] while being managed by your PCP and/or It Service Continuity Supervisor. For future medication refills, please refer to your PCP and/or It Service Continuity Supervisor after your discharge from our service. Thank you REMOVE CHEST TUBE SUTURES ON OR AFTER 03/02/24 Home oxygen therapy: N/A Follow up appointments: You should follow up with your PCP, Aparna Jordan APRN, in 1-2 weeks. Our office will schedule an appointment with your It Service Continuity Supervisor, Neftali Ernandez MD , in 2 [...] 0600 and on the weekends please page [phone]. * Eric Barahona PA - 02/23/2024 9:27 [...] 0600 and on the weekends please page [phone]. * Tiffanie Owens, STEAM FITTER SUPERVISOR MAINTENANCE - 02/22/2024 2:48 PM EDT Physical Therapy [...] d/c for 10 days. 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 He drives. He works Precautions/Special Considerations: STERNAL [...] LRAD and supervision Time IN / OUT: 2551-5510 Total Time: 30 minutes; TEFx2 Tiffanie Owens Pager: [phone] Physical Therapy Inpatient Rehabilitation Department * Romeo [...] 0600 and on the weekends please page [phone]. * Kelley Hinson STEAM FITTER SUPERVISOR MAINTENANCE - 02/21/2024 10:15 AM EDT Physical Therapy [...] d/c for 10 days. 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 He drives. He works Precautions/Special Considerations: STERNAL [...] LRAD and supervision Time IN / OUT: 1550-6566 Total Time: 25 minutes; TEF 2 Kelley Hinson PTA Pager: [phone] Physical Therapy Inpatient Rehabilitation Department * Louisa [...] 0600 and on the weekends please page [phone]. * Kelley Hinson PTA - 02/20/2024 3:32 [...] at that time Kelley Hinson PTA Pager: [phone] Physical Therapy Inpatient Rehab Department * Louisa [...] 0600 and on the weekends please page [phone]. * Maris Benavides, PT - 02/19/2024 11:22 [...] d/c for 10 days. 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 He drives. He works. Precautions/Special Considerations: STERNAL [...] outlined inthis evaluation. MARIS BENAVIDES, PT Pager: [phone] Physical Therapy Inpatient Rehabilitation Department Time IN / OUT: 9383-6955 Total Time: 38 (eval) minutes; * Antonio [...] 0600 and on the weekends please page [phone]. * Minnie Begum PA - 02/18/2024 8:25 [...] 0600 and on the weekends please page [phone]. * Kim Ha RCP - 02/17/2024 2:25 [...] plan since last visit. Hayder Graham MD [phone] Source Note - Hayder Graham MD - [...] given written informed consent. Hayder Graham MD [phone] * Hayder Graham MD - 02/17/2024 7:00 [...] given written informed consent. Hayder Graham MD [phone] documented in this encounter Miscellaneous Notes * [...] information for follow-up Home Health & Hospice, [address] [place] [address] Cardiac Rehab, [address] [place] [address] Transportation: family or friend will provide Functional status prior to admission: Independent Home Environment: Others in the home: alone. Current Living Arrangements: home/apartment/condo. Accessibility Concerns:a few steps to enter 1 floor home. Current Functional Ability: Assistive Person and Equipment DME used at home: none DME Needed at Discharge: N/A Patient is insured through: Primary Insurance: [employer] Payor: [facility] / Plan: [facility] PPO / Product Type: [...] pain managed with scheduled Tylenol. Worked with [employer]. Ambulated in the roque multiple times during [...] anticipated Patient is insured through: Primary Insurance: [facility] Payor: [facility] / Plan: [facility] PPO / Product Type: [...] Services: Physical Therapy, Registered Nurse Agency Referrals: [facility] [address] [place] [address] Transportation: family or friend will provide Barriers to discharge: Discharge planning Plan going forward: Service Care Management will continue to follow and assist with discharge planning and coordination of care as indicated. Anticipated Date of Discharge: 02/22/2024 Rhett Bell RN RN/CM - Cellphone: [phone] Pager: [phone] Covering Service RN/CM * Plan of Care [...] receiving care in [place] must abide by [place] law. The hierarchy [...] steady place to sleep or slept in [facility] (including now)?: No In the past 12 months has the [employer] gas, oil, or water [employer] threatened to shut off services in your [...] [address] [facility] [address] Physical address: [address] [facility], [address] Social & Family Supports: All names listed [...] Health/Prescription Coverage: Primary Insurance: [facility] Payor: [facility] / Plan: [facility] PPO / Product Type: *No Product type* / Secondary Insurance: N/A ; Prescription Coverage: Yes Preferred Pharmacy: [id number] [address] [place] Status: Patient is a : No Primary Care Provider confirmed: Aparna Jordan, MAURI [phone] Patient/Caregiver Goals of Treatment: dc to home Potential Needs for Transition of Care: home health care Agency Referrals: I have met with the patient to: discuss discharge planning needs. provide the [facility], Office of Care Management letter from the Open Soaper Tender pertaining to rehab referrals. provide a letter describing our affiliations within the [facility] and educate about their right to choose where referrals are sent. provide a list of Home Health Agencies / Durable Medical Equipment vendors which serve their preferred geographic area. provided patient with [facility] Star Quality Rating handout. They have requested referrals to: [facility] [address] [place] [address] Note routed to a Regulatory And Compliance Technician who will communicate referrals to facilities and [...] Reina Greene RN CM, BSN, CMGT-BC Ext [phone] * Plan of Care - Binta Trinidad [...] Operative Note Patient Name: Karlos Garcia : [id number] MR#: [id number] Case Date: 02/17/2024 Surgeon: Surgeon(s) and Role: * Hayder Graham MD - Primary * Neftali Menon PA - Physician Deposit Refund Clerk Preoperative diagnosis: CAD Postoperative diagnosis: CAD, intraoperative [...] and Left pleural Disposition: [facility] Condition: doing well without problems Attestation: Case Date: 02/17/2024 I performed this procedure without the involvement of a resident. HAYDER GRAHAM MD 02/17/2024 * Op Note - Hayder Graham MD - 02/17/2024 8:20 AM EDT [facility] Operative Note Patient Name: Karlos Garcia : [id number] MR#: [id number] Case Date: 02/17/2024 Surgeon: Surgeons and Role: * Hayder Graham MD - Primary * Neftali Menon PA - Physician Deposit Refund Clerk Preoperative diagnosis: CAD Postoperative diagnosis: CAD, intraoperative [...] PM EST Office Visit Cardiology at [address] [address] Sheila Johnson, MAURI [address] [facility] [place] [address] Scheduled Orders Name Type Priority Associated Diagnoses [...] Aortic Valve Open W Cardiopulmonary Bypass Homogrf/Stent (18045) Yes 02/17/2024 7:28 AM EDT CAD Cabg, Artery-Vein, Two (30698) Yes 02/17/2024 7:28 AM EDT CAD Cabg, Arterial, Single (68600) Yes 02/17/2024 7:28 AM EDT CAD Endoscopy W/Video-Asst Vein [place], Cabg (73319) Yes 02/17/2024 7:28 AM EDT CAD POCT [...] CHEMISTRY ORDERABLE S [facility] [place] [address] * (ABNORMAL) Basic Metabolic Panel (non-fasting) (02/23/2024 [...] MD CHEMISTRY ORDERABLES [facility] [place] [address] * Potassium (02/22/2024 4:30 AM EDT) Potassium [...] CHEMISTRY ORDERABLE S [facility] [place] [address] * (ABNORMAL) Basic Metabolic Panel (non-fasting) (02/21/2024 [...] 31 [facility] Comment:Add-on request. Samwilly le too [...] Carpio MD CHEMISTRY ORDERABLES Performing Organization Address City/[facility]/ZIP Co de Phone Number [facility] [place] [address] * Lactate, whole blood, send to lab ([facility] (02/21/2024 9:45 AM EDT) [facility] Lactate WB 2.0 0.5 - 2.2 mmol/L [facility] Blood 02/21/2024 9:45 AM EDT 02/21/2024 9:52 AM EDT Narrative Resulting Agency Comment Spec In Lab Hayder Graham MD CHEMISTRY ORDERABLE S Performing Organization Address [facility] Co de Phone Number [facility] [place] [address] * (ABNORMAL) Hepatic Function Panel (02/21/2024 9:45 AM EDT) [facility] Protein, Total 5.7(L) 6.1 - 8.0 g/dL [...] CHEMISTRY ORDERABLE S [facility] [place] [address] * Lipase (02/21/2024 9:45 AM EDT) Lipase 56 0 - 60 unit/L [facility] Blood 02/21/2024 9:45 AM EDT 02/21/2024 9:52 AM EDT Narrative Resulting Agency Comment Spec In Lab Hayder Graham MD CHEMISTRY ORDERABLE S Performing Organization Address City/[facility]/ZIP Co de Phone Number [facility] [place] [address] * Amylase (02/21/2024 9:45 AM EDT) Amylase 69 28 - 100 unit/L [facility] Blood 02/21/2024 9:45 AM EDT 02/21/2024 9:52 AM EDT Narrative Resulting Agency Comment Spec In Lab Hayder Graham MD CHEMISTRY ORDERABLE S Performing Organization Address [facility] Co de Phone Number [facility] [place] [address] * Potassium (02/21/2024 3:08 AM EDT) Potassium [...] Address City/[facility]/ZIP Co de Phone Number [facility] [place] [address] * XR Chest PA & Lateral (Generic) (02/20/2024 10:19 AM EDT) WORKSTATION ID [id number] RAD Anatomical Region Laterality Modality Chest N/A [...] FINDINGS: Support devices: Interval removal of [place]-Kaila catheter, endotracheal tube and mediastinal chest tubes The cardiac silhouette is stable status post median sternotomy, CABG and aortic valve replacement. There are small pleural effusions. No pneumothorax. Procedure Note Rogerio Cruz MD - 02/20/2024 EXAMINATION: XR CHEST PA AND LATERAL (GENERIC) CLINICAL HISTORY: s/p AVR/CABGx3 TECHNIQUE: PA and lateral views of the chest COMPARISON: 02/17/2024 FINDINGS: Support devices: Interval removal of [place]-Kaila catheter, endotracheal tubeand mediastinal chest tubes The [...] manager care that requested your imaging first. Hayder Graham MD IMG DX ORDERABLES * Scan, Peripheral Blood (02/20/2024 4:23 AM EDT) Pathologist [facility] Plat estimate Decreased [facility] RBC Morphology Normal [facility] Blood 02/20/2024 4:23 AM EDT 02/20/2024 4:42 AM EDT Narrative Resulting Agency Comment Spec In Lab Minnie FRENCH HEMATOLOGY CECILIO ALEMAN [facility] [place] [address] * (ABNORMAL) Differential, Automated (02/20/2024 4:23 AM EDT) Pathologist [facility] Neutrophil % 81.7 % [facility] Neutrophil Absolute 10.37(H) 1.70 - 6.10 x10(3)/mc L [facility] Lymph % 7.4 % [facility] Lymphocytes Abs 0.9 0.9 - 3.2 x10(3)/mc L [facility] Monocyte % 9.7 % [facility] Monocyte Abs 1.2(H) 0.3 - 0.9 x10(3)/mc L [facility] Eos % 0.1 % [facility] Eosinophils Abs 0.0 0.0 - 0.4 x10(3)/mc L [facility] Basophil % 0.2 % [facility] Baso Absolute 0.0 0.0 - 0.1 x10(3)/mc L [facility] Immature Gran % 0.90 % [facility] Comment: Immature granulocytes(IG's)percentage and absolute count will include metamyelocytes, myelocytes, and promyelocytes. Blood smears from CBCs yielding IG's will be scanned manually for concordance. If this scan disagrees with the automated IG or if promyelocytes are noted, a manual differential will be performed. Immature Gran Absolute 0.12(H) 0.00 - 0.04 x10(3)/ L [facility] Blood 02/20/2024 4:23 AM EDT 02/20/2024 4:42 AM EDT Narrative Resulting Agency Comment Spec In Lab Minnie FRENCH HEMATOLOGY CECILIO ALEMAN [facility] [place] [address] * (ABNORMAL) Hemogram (02/20/2024 4:23 AM EDT) White Blood Cell 12.7(H) 4.0 - 9.5 x10(3)/ L [facility] Red Blood Cell 4.26(L) 4.58 - 5.54 x10(6)/mc L [facility] Hemoglobin 12.3(L) 13.7 - 16.5 [...] Platelet 88(L) 145 - 357 x10(3)/ L [facility] RDW Standard Deviation 43.5 36.0 - 45.0 fL [facility] RDW coefficient of variation 13.7 11.4 - 13.8 % [facility] Mean Platelet Volume 10.2 7.6 - 12.9 fL [facility] NRBC% auto 0.0 % [facility] NRBC Absolute 0.000 0.000 - 0.000 x10(3)/mc L [facility] Blood 02/20/2024 4:23 AM EDT 02/20/2024 4:42 AM EDT Narrative Resulting Agency Comment Spec In Lab Minnie FRENCH HEMATOLOGY CECILIO ALEMAN [facility] [place] [address] * (ABNORMAL) Basic Metabolic Panel (non-fasting) (02/20/2024 4:23 AM EDT) Glucose 113 65 - 199 mg/dL [facility] Comment:Diabetes: >=200 mg/d L plus symptoms Blood Urea Nitrogen 20 10 - 20 mg/dL [facility] Comment:result rechecked-DE Creatinine 0.71(L) 0.80 - 1.50 mg/dL [facility] [...] CHEMISTRY ORDERABLE S Performing Organization Address [facility] Co de Phone Number [facility] [place] [address] * Potassium (02/19/2024 3:57 AM EDT) Potassium [...] CHEMISTRY ORDERABLE S Performing Organization Address [facility]/ZIP Co de Phone Number [facility] [place] [address] * POCT Glucose (02/18/2024 8:24 AM EDT) Glucose, POC 157 65 - 199 mg/dL [facility] Comment: Supplemental ranges: <140 mg/dL before meals <180 mg/dL all other times of the day Blood 02/18/2024 8:24 AM EDT 02/18/2024 8:24 AM EDT Hayder Graham MD POINT OF CARE TEST ORDERABLES [facility] [place] [address] * Scan, Peripheral Blood (02/18/2024 1:40 AM EDT) Plat estimate Decreased [facility] RBC Morphology Normal [facility] Blood 02/18/2024 1:40 AM EDT 02/18/2024 1:56 AM EDT Narrative Resulting Agency Comment Spec In Lab Neftali FRENCH HEMATOLOGY ORDER OLE Performing Organization Address City/[facility]/ZIP Co de Phone Number [facility] [place] [address] * (ABNORMAL) Differential, Automated (02/18/2024 1:40 AM EDT) [facility] Neutrophil % 87.1 % [facility] Neutrophil Absolute 15.03(H) 1.70 - 6.10 x10(3)/mc L [facility] Lymph % 3.0 % [facility] Lymphocytes Abs 0.5(L) 0.9 - 3.2 x10(3)/mc L [facility] Monocyte % 9.1 % [facility] Monocyte Abs 1.6(H) 0.3 - 0.9 x10(3)/mc L [facility] Eos % 0.0 % [facility] Eosinophils Abs 0.0 0.0 - 0.4 x10(3)/mc L [facility] Basophil % 0.2 % [facility] [...] Absolute 0.10(H) 0.00 - 0.04 x10(3)/mc L [facility] Blood 02/18/2024 1:40 AM EDT 02/18/2024 1:56 AM EDT Narrative Resulting Agency Comment Spec In Lab Neftali FRENCH HEMATOLOGY ORDER OLE [facility] [place] [address] * (ABNORMAL) Hemogram (02/18/2024 1:40 AM EDT) White Blood Cell 17.2(H) 4.0 - 9.5 x10(3)/mc L [facility] NRBC% auto 0.0 % [facility] NRBC Absolute 0.000 0.000 - 0.000 x10(3)/mc L [facility] Blood 02/18/2024 1:40 AM EDT 02/18/2024 1:56 AM EDT Narrative Resulting Agency Comment Spec In Lab Neftali FRENCH HEMATOLOGY ORDER OLE [facility] [place] [address] * (ABNORMAL) Basic Metabolic Panel (non-fasting) (02/18/2024 [...] CHEMISTRY ORDERABLE S [facility] [place] [address] * (ABNORMAL) Troponin (02/18/2024 1:40 AM EDT) [...] can be found in the [facility] Test Catalog Troponin - [facility] Test Catalog Reference: Fourth Caspian Definition of Myocardial Infarction. Journal of the [place] College of Cardiology 2018;72:6033-2583 Blood 02/18/2024 1:40 AM EDT 02/18/2024 1:56 AM EDT Narrative Resulting Agency Comment Spec In Lab Hayder Graham MD CHEMISTRY ORDERABLE S Performing Organization Address [facility] Co de Phone Number [facility] [place] [address] * POCT Glucose (02/17/2024 8:13 PM EDT) Glucose, POC 142 65 - 199 mg/dL [facility] Comment: Supplemental ranges: <140 mg/dL before meals <180 mg/dL all other times of the day Blood 02/17/2024 8:13 PM EDT 02/17/2024 8:13 PM EDT Hayder Graham MD POINT OF CARE TEST ORDERABLES Performing Organization Address [facility] Co de Phone Number [facility] [place] [address] * POCT Glucose (02/17/2024 5:42 PM EDT) Glucose, POC 160 65 - 199 mg/dL [facility] Comment: Supplemental ranges: <140 mg/dL before meals <180 mg/dL all other times of the day Blood 02/17/2024 5:42 PM EDT 02/17/2024 5:42 PM EDT Hayder Graham MD POINT OF CARE TEST ORDERABLES Performing Organization Address [facility]/ZIP Co de Phone Number [facility] [place] [address] * Hemoglobin (02/17/2024 5:42 PM EDT) Hemoglobin 13.7 13.7 - 16.5 g/dL [facility] Blood 02/17/2024 5:42 PM EDT 02/17/2024 6:10 PM EDT Narrative Resulting Agency Comment Spec In Lab Hayder Graham MD HEMATOLOGY ORDERABL ES Performing Organization Address [facility] Co de Phone Number [facility] [place] [address] * Potassium (02/17/2024 5:42 PM EDT) Potassium [...] CHEMISTRY ORDERABLE S Performing Organization Address [facility] Co de Phone Number [facility] [place] [address] * (ABNORMAL) BLOOD GAS 2 ARTERIAL (02/17/2024 [...] [facility] PF Ratio Art 195 [facility] Blood 02/17/2024 4:18 PM EDT 02/17/2024 4:18 PM EDT Hayder Graham MD POINT OF CARE TEST ORDERABLES Performing Organization Address City/State/[facility] Co de Phone Number [facility] [place] [address] * XR Chest One View (02/17/2024 1:44 PM EDT) [employer] WORKSTATION ID [id number] RAD Anatomical Region Laterality Modality Chest N/A Digital Radiogra phy Impressions 02/17/2024 2:12 PM EDT 1. ??No definite pleural fluid collection or pneumothorax. 2. ??Right IJ [place] catheter tip terminates in a descending branch [...] Electronically signed by: Denzel Hankins MD, [facility] ??([phone]), at 02/17/2024 2:12 PM Narrative 02/17/2024 2:12 PM EDT EXAMINATION: XR CHEST ONE VIEW CLINICAL HISTORY: s/p avr/cabg eval effusions TECHNIQUE: 1 view of the chest COMPARISON: Chest x-ray 01/09/2024, chest CT 02/03/2024 FINDINGS: ET tube tip terminates 5.2 cm above the carlos. Right IJ [place] catheter tip terminates in a descending branch [...] cm above the carlos. Right IJ [place]-Ganzcatheter tip terminates in a descending branch of [...] collection or pneumothorax. 2. Right IJ [place] catheter tip terminates in a descending branch [...] manager care that requested your imaging first. Hayder [...] [facility] FIO2 Art 100 % [facility] PF Ratio Art 320 [facility] Blood 02/17/2024 1:31 PM EDT 02/17/2024 1:31 PM EDT Hayder Graham MD POINT OF CARE TEST ORDERABLES [facility] [place] [address] * (ABNORMAL) Coox2 (02/17/2024 1:21 PM EDT) [...] CARE TEST ORDERABLES [facility] [place] [address] * (ABNORMAL) BLOOD GAS 2 ARTERIAL (02/17/2024 [...] OF CARE TEST ORDERABLES Performing Organization Address [facility] Co de Phone Number [facility] [place] [address] * (ABNORMAL) Fibrinogen (02/17/2024 12:10 PM EDT) [...] Narrative Resulting Agency Comment Spec In Lab Traa York MD HEMATOLOGY ORDERABLE S Performing Organization Address [facility] Co de Phone Number [facility] [place] [address] * (ABNORMAL) Thrombin time (02/17/2024 12:10 PM [...] MD HEMATOLOGY ORDERABLE S Performing Organization Address [facility] Co de Phone Number [facility] [place] [address] * APTT (02/17/2024 12:10 PM EDT) Partial [...] MD HEMATOLOGY ORDERABLE S Performing Organization Address [facility]/ZIP Co de Phone Number [facility] [place] [address] * (ABNORMAL) Prothrombin Time (02/17/2024 12:10 PM [...] Narrative Resulting Agency Comment Spec In Lab aTra York MD HEMATOLOGY ORDERABLE S [facility] [place] [address] * (ABNORMAL) Hemogram (02/17/2024 12:10 PM EDT) [...] [facility] NRBC% auto 0.0 % [facility] NRBC Absolute 0.000 0.000 - 0.000 x10(3)/mc L [facility] Blood 02/17/2024 12:1 0 PM EDT 02/17/2024 12:19 PM EDT Narrative Resulting Agency Comment Spec In Lab Tara York MD HEMATOLOGY ORDERABLE S [facility] [place] [address] * (ABNORMAL) BLOOD GAS 2 ARTERIAL (02/17/2024 [...] [facility] Comment: Noted by musical instrument [...] CARE TEST ORDERABLES [facility] [place] [address] * (ABNORMAL) BLOOD GAS 2 ARTERIAL (02/17/2024 [...] [facility] Comment: Noted by musical instrument [...] OF CARE TEST ORDERABLES Performing Organization Address [facility]/ZIP Co de Phone Number [facility] [place] [address] * (ABNORMAL) Hemoglobin and Hematocrit, blood (02/17/2024 [...] Address City/[facility]/ZIP Co de Phone Number [facility] [place] [address] * (ABNORMAL) Platelet count (02/17/2024 11:04 AM EDT) Platelet 106(L) 145 - 357 x10(3)/mc L [facility] Immature Plt % 1.6 0.0 - 7.4 % [facility] Comment: Limitation of the Immature Platelet Fraction (IPF)-May be less reliable when the platelet count is less than 72j901/uL due to statistical imprecision. The IPF value [...] in a decreased state of production. References: [employer] The Clinical Value of the Immature Platelet Fraction (IPF) in Cell Recovery Document Number [id number] 03/2011 [employer] The Role of the Immature Platelet Fraction (IPF) in the Differential Diagnosis of Thrombocytopenia, Document [id number] V002/15/14 P002/17 Blood 02/17/2024 11:0 4 AM EDT 02/17/2024 11:12 AM EDT Narrative Resulting Agency Comment Spec In Lab Hayder Graham MD HEMATOLOGY ORDERABL ES Performing Organization Address City/State/[facility] Co de Phone Number [facility] [place] [address] * (ABNORMAL) Fibrinogen (02/17/2024 11:04 AM EDT) Fibrinogen 149(L) 200 - 393 mg/dL [facility] [...] HEMATOLOGY ORDERABL ES [facility] [place] [address] * (ABNORMAL) BLOOD GAS 2 ARTERIAL (02/17/2024 [...] CARE TEST ORDERABLES [facility] [place] [address] * (ABNORMAL) BLOOD GAS 2 ARTERIAL (02/17/2024 [...] de Phone Number [facility] [place] [address] * Surgical Pathology Report (02/17/2024 10:01 AM EDT) Final Diagnosis [id number] ? Location: [facility]; [facility]; The signing pathologist has (i) examined the relevant preparation(s) for the specimen(s) and (ii) rendered or confirmed the diagnosis(es). . ?Surgical Pathology DIAGNOSIS Aortic valve leaflets, excision: Valve leaflets with myxoid degeneration, nodular fibrosis and dystrophic calcifications. Electronically signed by: ?Lindsay FERNANDEZ, Livier Gonzalez Verified: ??02/24/2024 13:49 ??Pathologist Performed at: ??-[facility] [place] Dept. of Pathology, [place] [address] Open Soaper Tender: Job Brewer MD, FCAP, ??CLIA Certificate: [id number] SPECIMEN(S) SUBMITTED A - Aortic Valve Leaflets, [...] Sections Processing Blocks submitted for decalcification: A1. Non Food Receiving Clerk sections in 1 cassette labeled A1. ??ajw 02/24/2024 1:49 PM EDT [facility] AORTIC STRUCTURE / Unknown 02/17/2024 10:01 AM EDT 02/17/2024 10:01 AM EDT Hayder Graham MD PATHOLOGY/CYTOLOGY ORDERABLES Performing Organization Address City/[facility]/ZIP Co de Phone Number [facility] [place] [address] * Specimen to Pathology (02/17/2024 10:01 AM EDT) AP Specimen 02/17/2024 10:0 1 AM EDT 02/17/2024 10:01 AM EDT Narrative [facility] - 02/17/2024 10:01 AM EDT Specimen requisition ordered. ??Separate Pathology report to follow Hayder Graham MD PATHOLOGY/CYTOLOGY ORDERABLES Performing Organization Address City/[facility]/ZIP Co de Phone Number [facility] [place] [address] * (ABNORMAL) BLOOD GAS 2 ARTERIAL (02/17/2024 [...] CARE TEST ORDERABLES [facility] [place] [address] * (ABNORMAL) BLOOD GAS 2 VENOUS (02/17/2024 9:34 AM EDT) pH, Venous 7.22(Criti marquez) 7.32 - 7.42 [facility] Comment:Noted by musical instrument maker. PCO2, Venous 43 41 - 51 mmHg [facility] Comment:Noted by musical instrument maker. PO2, Venous 57(H) 25 - 40 mmHg [facility] Comment:Noted by musical instrument maker. Bicarbonate, Venous 17.1 mmol/L [facility] Comment:Noted by musical instrument maker. Base Excess, Venous -10.6 mmol/L [facility] Comment:Noted by musical instrument maker. Hgb Blood Gas 11.2(L) 13.7 - 16.5 g/dL [facility] Comment:Noted by musical instrument maker. Oxyhemoglobin, Venous 86.5 % [facility] Comment:Noted by musical instrument maker. Carboxyhemoglob in, Venous 0.3 % [facility] Comment: Noted by musical instrument maker. Nonsmokers: 0.5-1.5% COHB Smokers: Variable, but usually less than 10% Toxic: 20-30% COHB Lethal: Greater than 60% COHB Methemoglobin, Venous 0.0 <=1.5 % [facility] Comment:Noted by musical instrument maker. Na Whole Blood 156(H) 135 - 145 mmol/L [facility] Comment:Noted by musical instrument maker. K Whole Blood 5.5(H) 3.5 - 5.0 mmol/L [facility] Comment: Noted by musical instrument maker. Please note: Patients with WBC >100,000 may have falsely elevated Potassium levels. Contact the Clinical Chemistry Laboratory if there are any questions. ICa Whole Blood 1.03(L) 1.15 - 1.33 mmol/L [facility] Comment: Noted by musical instrument maker. Note: ??Total bilirubin higher than 20 mg/dL may lead to falsely low ionized calcium. CL Whole Blood 100 98 - 107 mmol/L [facility] Comment:Noted by musical instrument maker. Gluc Whole Bld 132 65 - 199 mg/dL [facility] Comment: Noted by musical instrument maker. Diabetes: >=200 mg/dL plus symptoms Lactate WB 1.0 0.5 - 2.2 mmol/L [facility] Comment:Noted by musical instrument maker. Blood Gas Source Venous [facility] Blood 02/17/2024 9:34 AM EDT 02/17/2024 9:34 AM EDT Hayder Graham MD POINT OF CARE TEST ORDERABLES [facility] [place] [address] * (ABNORMAL) BLOOD GAS 2 ARTERIAL (02/17/2024 [...] OF CARE TEST ORDERABLES Performing Organization Address [facility] Co de Phone Number [facility] [place] [address] * POCT Glucose (02/17/2024 6:38 AM EDT) Glucose, POC 98 65 - 199 mg/dL [facility] Comment: Supplemental ranges: <140 mg/dL before meals <180 mg/dL all other times of the day Blood 02/17/2024 6:38 AM EDT 02/17/2024 6:38 AM EDT Hayder Graham MD POINT OF CARE TEST ORDERABLES Performing Organization Address [facility] Co de Phone Number [facility] [place] [address] * Transesophageal Echo/OR (02/17/2024 6:33 AM EDT) [...] Mishel Merrill, RN) [phone] (Given - Provider: Jzalyn Maldonado, RN) Continuous Medication Order 02/22/2024 02/23/2024 [...] Ingrid Menjivar RN)[phone] (Given - Provider: Polo Britotn RN) Linked Groups Order Group 1: acetaminophen [...] documented in this encounter Care Teams Test Driller Relationship Specialty Start Date End Date Aparna Jordan APRN PCP - General Family Medicine 10/21/23 05/26/24 documented as of this encounter
--- OUTSIDE RECORDS SUMMARY | 2024-11-19 09:53 | XMS_ITS | Encounter Summary ---
[place] [address] Care Team Providers Care Qa Developer Name Role Phone Aparna Jordan MAURI Primary Care Provider [phone] Reason for Referral * Diagnostic Test (Routine) - New Request Specialty Diagnoses / Procedures Referred By Contac t Referred To Contact Cardiology Diagnoses S/P AVR Procedures Echocardiogram Transthoracic Neftali Menon PA [facility] [place] [address] [facility] [place] [address] Referral ID Status Reason Start Date Expiration Date Visits Requested Visits Authorized [id number] New Request Specialty Service Requested 02/24/2024 02/23/2025 1 1 * Consultation (Routine) - Closed Specialty Diagnoses / Procedures Referred By Contac t Referred To Contact Cardiology Diagnoses S/P AVR Hayder Graham MD [facility] [address] Cardiac Rehab, [facility] [address] [place] [address] [place] [address] Referral ID Status Reason Start Date Expiration Date V isits Requested Visits Authorized [id number] Closed Consult, Test & Treat 02/24/2024 08/22/2024 36 36 * Home Health Care (Routine) - Closed Specialty Diagnoses / Procedures Referred By Sixto mendoza Referred To Contact Diagnoses S/P AVR Hayder Graham MD [facility] [place] [address] Referral ID Status Reason Start Date Expiration Date V isits Requested Visits Authorized [id number] Closed Consult, Test & Treat 02/24/2024 08/22/2024 [...] Graham MD [facility] [address] [facility] Referral ID Status Reason Start Date Expiration Date Visits Re quested Visits Authorized [id number] 1 1 Encounter Details Date Type Department Care Team (Latest Contact Info) Description 02/17/2024 5:43 AM EDT - 02/24/2024 11:23 AM EDT Hospital Encounter Heart and Vascular Unit Level 4 [place] [address] Hayder Graham MD [facility] [place] [address] S/P AVR (Primary Dx); Aortic valve stenosis, [...] Patient Age: 63 y.o. Birthdate: 1960 Language: Mosotho Race: White Ethnicity: Not nor Admit Date: 02/17/2024 Discharge Date: 02/24/24 Attending Physician: Hayder Graham MD Follow-up Recommendations for Providers: Please continue routine management of cardiovascular risk factors including blood pressure, lipids,glucose, etc. Please note any changes to medications. Patient to follow up with PCP, Aparna Jordan APRN, in 1-2 weeks. Patient to follow up with Multicultural Internship, Neftali Ernandez MD , in 2 weeks. Patient to follow up with Cardiac Surgeon, Dr. Hayder Graham, with a chest x-ray, EKG, and Echo. Inpatient Provider Contact Information: [facility] Section of Cardiac Surgery [facility] [address] FAX [phone] Discharge Diagnoses (Hospital Problems) Primary Diagnoses: /CAD [...] 33.75) performed by Hayder Graham MD at [facility] MAIN OR PRO CABG, ARTERY-VEIN, TWO N/A 02/17/2024 @CABG, TWO VENOUS GRAFTS & ARTERIAL GRAFT (WRVU 7.93) performed by Hayder Graham MD at [facility] MAIN OR PRO ENDOSCOPY W/VIDEO-ASST VEIN HARVEST, CABG Left 02/17/2024 ENDOSCOPIC HARVEST VEIN(S) FOR CABG (WRVU 0.31) performed by Hayder Graham MD at [facility] MAIN OR PRO REPLACEMENT PROSTHETIC AORTIC VALVE OPEN W CARDIOPULMONARY BYPASS HOMOGRF/STENT N/A 02/17/2024 @REPLACE AORTIC VALVE, OPEN, W\CPB, W\PROSTHETIC VALVE (WRVU 41.32) performed by Hayder Graham MD at [facility] MAIN OR Prior To Admission Medications [...] insufficiency. He has glaucoma. He used to [employer] until about 15 years ago. He has [...] Hayder Graham and/or the Cardiac Surgery Physician Acid Cutter Team may be reached at . Antibiotic [...] Dr. Hayder Graham. You may use a Orrin Track or treadmill but avoid any pulling [...] friends, go to a movie, go to mandaeism, etc. Heavy activities: No hunting, skiing, jogging, [...] while being managed by your PCP and/or Multicultural Internship. For future medication refills, please refer to your PCP and/or Multicultural Internship after your discharge from our service. Thank you REMOVE CHEST TUBE SUTURES ON OR AFTER 03/02/24 Home oxygen therapy: N/A Follow up appointments: You should follow up with your PCP, Aparna Jordan APRN, in 1-2 weeks. Our office will schedule an appointment with your Multicultural Internship, Neftali Ernandez MD , in 2 weeks. [...] Future Orders Complete By Expires Echocardiogram Transthoracic [57123 CPT(R)] 03/26/2024 09/25/2024 Process Instructions: Scheduling Instructions: Questions: Where will study be performed?: [facility] Does the patient have Congenital Heart Disease?: Does patient require sedation?: Sedation rationale: XR Chest PA & Lateral (Generic) [85976 77224 Custom] 03/26/2024 09/25/2024 Process Instructions: Scheduling Instructions: Questions: Portable exam?: Reason for exam and clinical history: s/p avr/cabg Clinical information / jerome questions for radiologist: Stat read required?: Date of injury if applicable: Requested Time: Where will study be performed?: [facility] Radiology Referral to Cardiac Rehab [RAZ048 Custom] As directed Process Instructions: If no [...] to Home Health. [address] Phone Number: Date of : 1960 Inpatient DOCUMENTATION FOR VNA SERVICES (INCLUDING THOSE PATIENTS WITH MEDICARE COVERAGE REQUIRING HOME VNA SERVICES AND/OR HOSPICE SERVICES) PATIENT'S LOCATION: Karlos Garcia [address] [place] [phone] Front End Wheel Loader Operator's Name: self/family In discussion with the attending physician, it is certified that this patient is under their care and that they, or a Nurse Practitioner, or Physician Acid Cutter who is working directly with them, hada [...] for services as follows: HOME HEALTH AGENCY: [facility]. [address] [place] [address] RN orders: Cardiopulmonary assessment, incisional assessment, assess [...] issues please call the Cardiology Office at [phone] FOR MEDICARE ONLY: (please delete this section [...] As above. Signed: NEFTALI MENON PA-C [facility] Section of Cardiac Surgery [facility] [address] FAX [phone] Date: 02/24/2024 CC: Aparna Jordan, MAURI Jordan, Aparna Sherman APRN [address] [place] [address] documented in this encounter Discharge Instructions * [...] Hayder Graham and/or the Cardiac Surgery Physician Acid Cutter Team may be reached at . Antibiotic [...] Dr. Hayder Graham. You may use a Orrin Track or treadmill but avoid any pulling [...] friends, go to a movie, go to mandaeism, etc. Heavy activities: No hunting, skiing, jogging, [...] while being managed by your PCP and/or Multicultural Internship. For future medication refills, please refer to your PCP and/or Multicultural Internship after your discharge from our service. Thank you REMOVE CHEST TUBE SUTURES ON OR AFTER 03/02/24 Home oxygen therapy: N/A Follow up appointments: You should follow up with your PCP, Aparna Jordan APRN, in 1-2 weeks. Our office will schedule an appointment with your Multicultural Internship, Neftali Ernandez MD , in 2 weeks. [...] 0600 and on the weekends please page [phone]. * Eric Barahona PA - 02/23/2024 9:27 [...] 0600 and on the weekends please page [phone]. * Tiffanie Owens PTA - 02/22/2024 2:48 [...] d/c for 10 days. 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 * Kelley Hinson, CONSTRUCTION ADMINISTRATOR - 02/21/2024 10:15 AM EDT Physical [...] d/c for 10 days. 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 * Kelley Hinson PTA - 02/20/2024 3:32 PM EDT 02/20/24 8443 Evaluation & Treatment Document Type contact Total Minutes, Physical Therapy 0 Comment, Session Not Performed Checked in w/ pt this PM for ongoing PT services, pt politely declined, stating he had been dealing w/ nausea all day, made plan to see him tomorrow morning, will f/u at that time Kelley Hinson PTA Pager: [phone] Physical Therapy Inpatient Rehab Department * Louisa [...] on the weekends please page [phone]. * Maris Benavides, PT - 02/19/2024 11:22 [...] d/c for 10 days. 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 Precautions/Special Considerations: [...] outlined inthis evaluation. MARIS BENAVIDES, PT Pager: [phone] Physical Therapy Inpatient Rehabilitation Department Time IN / OUT: 3915-1116 Total Time: 38 (eval) minutes; * Antonio [...] 0600 and on the weekends please page [phone]. * Minnie Begum PA - 02/18/2024 8:25 [...] 0600 and on the weekends please page [phone]. * Kim Ha RCP - 02/17/2024 2:25 [...] plan since last visit. Hayder Graham MD [phone] Source Note - Hayder Graham MD - [...] insufficiency. He has glaucoma. He used to Brand[employer] until about 15 years ago. He has [...] given written informed consent. Hayder Graham MD [phone] * Hayder Graham MD - 02/17/2024 7:00 [...] given written informed consent. Hayder Graham MD [phone] documented in this encounter Miscellaneous Notes * [...] information for follow-up Home Health & Hospice, [address] [place] [address] Cardiac Rehab, [facility] [address] [facility] [address] Transportation: family or friend will provide Functional status prior to admission: Independent Home Environment: Others in the home: alone. Current Living Arrangements: home/apartment/condo. Accessibility Concerns:a few steps to enter 1 floor home. Current Functional Ability: Assistive Person and Equipment DME used at home: none DME Needed at Discharge: N/A Patient is insured through: Primary Insurance: [facility] Payor: [facility] / Plan: [facility] PPO / Product Type: *No Product [...] pain managed with scheduled Tylenol. Worked with [employer]. Ambulated in the roque multiple times during [...] anticipated Patient is insured through: Primary Insurance: [facility] Payor: [facility] / Plan: [facility] PPO / Product Type: *No Product type* / Secondary Insurance: N/A Last Physical Therapy Recommendation: home with home health (Str coming to stay for a week or two upon d/c) with to be determined (owns rolling walker, shower seat) Plan for discharge is: Home w/ Services Outpatient Agency/Support Group Needs: Homecare agency Home Health Services: Physical Therapy, Registered Nurse Agency Referrals: [facility] [address] [address] Transportation: family or friend will provide Barriers to discharge: Discharge planning Plan going forward: Service Care Management will continue to follow and assist with discharge planning and coordination of care as indicated. Anticipated Date of Discharge: 02/22/2024 Rhett Bell RN RN/CM - Cellphone: [phone] Pager: [phone] Covering Service RN/CM * Plan of Care [...] RN - 02/19/2024 10:44 AM EDT [facility] CARDIAC REHABILITATION Karlos Garcia was [...] receiving care in [place] must abide by ID law. The hierarchy [...] In the past 12 months has the [employer], gas, oil, or water [employer] threatened to shut off services in your [...] as: [address] [facility] [address] Physical address: [address] [facility], [address] Social & Family Supports: All names listed [...] Information: none noted Health/Prescription Coverage: Primary Insurance: [facility] Payor: [facility] / Plan: [facility] PPO / Product Type: *No Product type* / Secondary Insurance: N/A ; Prescription Coverage: Yes Preferred Pharmacy: [id number] AT [facility] & [address] [address] Status: Patient is a : No Primary Care Provider confirmed: Aparna Jordan, HAT AND CAP DRYING ROOM ATTENDANT [phone] Patient/Caregiver Goals of Treatment: dc to home Potential Needs for Transition of Care: home health care Agency Referrals: I have met with the patient to: discuss discharge planning needs. provide the [facility], Office of Care Management letter from the Product Controller pertaining to rehab referrals. provide a letter [...] Rating handout. They have requested referrals to: [facility]. [address] [place] [address] Note routed to a Teacher Of The Handicapped who will communicate referrals to facilities and [...] Reina Greene RN CM, BSN, CMGT- Ext [phone] * Plan of Care - Binta Trinidad [...] Operative Note Patient Name: Karlos Garcia DOB: [id number] MR#: [id number] Case Date: 02/17/2024 Surgeon: Surgeon(s) and Role: * Hayder Graham MD - Primary * Neftali Menon PA - Physician Acid Cutter Preoperative diagnosis: CAD Postoperative diagnosis: CAD, intraoperative [...] MD - 02/17/2024 8:20 AM EDT [facility] Operative Note Patient Name: Karlos Garcia : [id number] MR#: [id number] Case Date: 02/17/2024 Surgeon: Surgeons and Role: * Hayder Graham MD - Primary * Neftali Menon PA - Physician Acid Cutter Preoperative diagnosis: CAD Postoperative diagnosis: CAD, intraoperative [...] mL Drains: Mediastinal and Left pleural Disposition: [facility] Procedure Description: The patient was [...] 3:00 PM EST Office Visit Cardiology at [place] [address] [place] [id number] Sheila Johnson APRN [address] [facility] [place] [address] Scheduled Orders Name Type Priority Associated Diagnoses [...] Aortic Valve Open W Cardiopulmonary Bypass Homogrf/Stent (54980) Yes 02/17/2024 7:28 AM EDT CAD Cabg, Artery-Vein, Two (03734) Yes 02/17/2024 7:28 AM EDT CAD Cabg, Arterial, Single (65709) Yes 02/17/2024 7:28 AM EDT CAD Endoscopy W/Video-Asst Vein [place], Cabg (54628) Yes 02/17/2024 7:28 AM EDT CAD POCT [...] CHEMISTRY ORDERABLE S [facility] [place] [address] * (ABNORMAL) Basic Metabolic Panel (non-fasting) (02/23/2024 [...] MD CHEMISTRY ORDERABLES [facility] [place] [address] * Potassium (02/22/2024 4:30 AM EDT) Potassium [...] CHEMISTRY ORDERABLE S [facility] [place] [address] * (ABNORMAL) Basic Metabolic Panel (non-fasting) (02/21/2024 [...] de Phone Number [facility] [place] [address] * Lactate, whole blood, send to lab ([facility]) (02/21/2024 9:45 AM EDT) [facility] [address] [facility] Lactate WB 2.0 0.5 - 2.2 mmol/L [facility] Blood 02/21/2024 9:45 AM EDT 02/21/2024 9:52 AM EDT Narrative Resulting Agency Comment Spec In Lab Hayder Graham MD CHEMISTRY ORDERABLE S Performing Organization Address City/[facility]/ZIP Co de Phone Number [facility] [place] [address] * (ABNORMAL) Hepatic Function Panel (02/21/2024 9:45 [...] de Phone Number [facility] [place] [address] * Lipase (02/21/2024 9:45 AM EDT) Lipase 56 0 - 60 unit/L [facility] Blood 02/21/2024 9:45 AM EDT 02/21/2024 9:52 AM EDT Narrative Resulting Agency Comment Spec In Lab Hayder Graham MD CHEMISTRY ORDERABLE S Performing Organization Address [facility] Co de Phone Number [facility] [place] [address] * Amylase (02/21/2024 9:45 AM EDT) Amylase 69 28 - 100 unit/L [facility] Blood 02/21/2024 9:45 AM EDT 02/21/2024 9:52 AM EDT Narrative Resulting Agency Comment Spec In Lab Hayder Graham MD CHEMISTRY ORDERABLE S Performing Organization Address [facility] Co de Phone Number [facility] [place] [address] * Potassium (02/21/2024 3:08 AM EDT) Potassium [...] Graham MD CHEMISTRY ORDERABLE S [facility] [place] [address] * XR Chest PA & Lateral (Generic) (02/20/2024 10:19 AM EDT) WORKSTATION ID [id number] RAD Anatomical Region Laterality Modality Chest N/A Digital Radiogra phy Impressions 02/20/2024 1:11 PM EDT Small pleural effusions. No pneumothorax Thank you for letting us participate in the care of this patient. ??If you are a health care provider and have any questions regarding this report, please contact the number below. ??For patients who have questions please contact the health pulmonary care nurse that requested your imaging first. ? Electronically signed by: Rogerio Cruz MD, [facility] ??([phone]), at 02/20/2024 1:11 PM Narrative 02/20/2024 1:11 PM EDT EXAMINATION: XR CHEST PA AND LATERAL (GENERIC) CLINICAL HISTORY: s/p AVR/CABGx3 TECHNIQUE: PA and lateral views of the chest COMPARISON: 02/17/2024 FINDINGS: Support devices: Interval removal of [place] catheter, endotracheal tube and mediastinal chest tubes The cardiac silhouette is stable status post median sternotomy, CABG and aortic valve replacement. There are small pleural effusions. No pneumothorax. Procedure Note Rogerio Cruz MD - 02/20/2024 EXAMINATION: XR CHEST PA AND LATERAL (GENERIC) CLINICAL HISTORY: s/p AVR/CABGx3 TECHNIQUE: PA and lateral views of the chest COMPARISON: 02/17/2024 FINDINGS: Support devices: Interval removal of [place] catheter, endotracheal tubeand mediastinal chest tubes The [...] patients who have questions please contactthe health pulmonary care nurse that requested your imaging first. Hayder Graham MD IMG DX ORDERABLES * Scan, Peripheral Blood (02/20/2024 4:23 AM EDT) Pathologist [facility] Plat estimate Decreased [facility] RBC Morphology Normal [facility] Blood 02/20/2024 4:23 AM EDT 02/20/2024 4:42 AM EDT Narrative Resulting Agency Comment Spec In Lab Minnie FRENCH HEMATOLOGY CECILIO ALEMAN [facility] [place] [address] * (ABNORMAL) Differential, Automated (02/20/2024 4:23 AM EDT) [facility] [address] [facility] Neutrophil % 81.7 % [facility] [...] LABORATORY Eosinophils Abs 0.0 0.0 - 0.4 x10(3)/[facility] LABORATORY Basophil % 0.2 % [facility] Baso Absolute 0.0 0.0 - 0.1 x10(3)/[facility] LABORATORY Immature Gran % 0.90 % [facility] Comment: Immature granulocytes(IG's)percentage and absolute count will include metamyelocytes, myelocytes, and promyelocytes. Blood smears from CBCs yielding IG's will be scanned manually for concordance. If this scan disagrees with the automated IG or if promyelocytes are noted, a manual differential will be performed. Immature Gran Absolute 0.12(H) 0.00 - 0.04 x10(3)/[facility] LABORATORY Blood 02/20/2024 4:23 AM EDT 02/20/2024 4:42 AM EDT Narrative Resulting Agency Comment Spec In Lab Minnie FRENCH HEMATOLOGY CECILIO ALEMAN [facility] [place] [address] * (ABNORMAL) Hemogram (02/20/2024 4:23 AM EDT) White Blood Cell 12.7(H) 4.0 - 9.5 x10(3)/[facility] LABORATORY Red Blood Cell 4.26(L) 4.58 - 5.54 x10(6)/ L [facility] Hemoglobin 12.3(L) [...] HEMATOLOGY CECILIO ALEMAN [facility] [place] [address] * (ABNORMAL) Basic Metabolic Panel (non-fasting) (02/20/2024 [...] S Performing Organization Address [facility]/ZIP Co de Phone Number [facility] [place] [address] * Potassium (02/19/2024 3:57 AM EDT) [facility] Signature Potassium 4.3 3.5 - 5.0 [...] de Phone Number [facility] [place] [address] * POCT Glucose (02/18/2024 8:24 AM EDT) [facility] [address] [facility] Glucose, POC 157 65 - 199 mg/dL [facility] Comment: Supplemental ranges: <140 mg/dL before meals <180 mg/dL all other times of the day Blood 02/18/2024 8:24 AM EDT 02/18/2024 8:24 AM EDT Hayder Graham MD POINT OF CARE TEST ORDERABLES Performing Organization Address City/[facility]/ZIP Co de Phone Number [facility] [place] [address] * Scan, Peripheral Blood (02/18/2024 1:40 AM EDT) [facility] [address] [facility] Plat estimate Decreased [facility] RBC Morphology Normal [facility] Blood 02/18/2024 1:40 AM EDT 02/18/2024 1:56 AM EDT Narrative Resulting Agency Comment Spec In Lab Neftali FRENCH HEMATOLOGY ORDER OLE Performing Organization Address City/[facility]/ZIP Co de Phone Number [facility] [place] [address] * (ABNORMAL) Differential, Automated (02/18/2024 1:40 AM EDT) [facility] [address] [facility] Neutrophil % 87.1 % [facility] [...] FRENCH HEMATOLOGY ORDER OLE Performing Organization Address City/State/[facility] Co de Phone Number [facility] [place] [address] * (ABNORMAL) Hemogram (02/18/2024 1:40 AM EDT) [...] HEMATOLOGY ORDER OLE [facility] [place] [address] * (ABNORMAL) Basic Metabolic Panel (non-fasting) (02/18/2024 [...] CHEMISTRY ORDERABLE S [facility] [place] [address] * (ABNORMAL) Troponin (02/18/2024 1:40 AM EDT) Pathologist [facility] Troponin-T, High Sensitivity 342(H) <=22 ng/L [facility] [...] troponin value can be found in the [facility] Laboratory Test Catalog Troponin - [facility] Laboratory Test Catalog Reference: Fourth [place] Definition of Myocardial Infarction. Journal of the [place] [employer] 2018;72:7533-9028 Blood 02/18/2024 1:40 AM EDT 02/18/2024 1:56 AM EDT Narrative Resulting Agency Comment Spec In Lab Hayder Graham MD CHEMISTRY ORDERABLE S Performing Organization Address City/[facility]/ZIP Co de Phone Number [facility] [place] [address] * POCT Glucose (02/17/2024 8:13 PM EDT) Glucose, POC 142 65 - 199 mg/dL [facility] Comment: Supplemental ranges: <140 mg/dL before meals <180 mg/dL all other times of the day Blood 02/17/2024 8:13 PM EDT 02/17/2024 8:13 PM EDT Hayder Graham MD POINT OF CARE TEST ORDERABLES Performing Organization Address [facility]/ZIP Co de Phone Number [facility] [place] [address] * POCT Glucose (02/17/2024 5:42 PM EDT) [...] de Phone Number [facility] [place] [address] * Hemoglobin (02/17/2024 5:42 PM EDT) Hemoglobin 13.7 13.7 - 16.5 g/dL [facility] Blood 02/17/2024 5:42 PM EDT 02/17/2024 6:10 PM EDT Narrative Resulting Agency Comment Spec In Lab Hayder Graham MD HEMATOLOGY ORDERABL ES Performing Organization Address [facility] Co de Phone Number [facility] [place] [address] * Potassium (02/17/2024 5:42 PM EDT) Potassium [...] S Performing Organization Address [facility] Co de Phone Number [facility] [place] [address] * (ABNORMAL) BLOOD GAS 2 ARTERIAL (02/17/2024 [...] [facility] PF Ratio Art 195 [facility] Blood 02/17/2024 4:18 PM EDT 02/17/2024 4:18 PM EDT Hayder Graham MD POINT OF CARE TEST ORDERABLES [facility] [place] [address] * XR Chest One View (02/17/2024 1:44 PM EDT) WORKSTATION ID [id number] RAD Anatomical Region Laterality Modality Chest N/A Digital Radiogra phy Impressions 02/17/2024 2:12 PM EDT 1. ??No definite pleural fluid collection or pneumothorax. 2. ??Right IJ [place] catheter tip terminates in a descending branch of the right pulmonary artery. Suggest catheter retraction. 3. ??Additional support lines and tubes as above. Thank you for letting us participate in the care of this patient. ??If you are a health care provider and have any questions regarding this report, please contact the number below. ??For patients who have questions please contact the health pulmonary care nurse that requested your imaging first. ? Electronically signed by: Denzel Hankins MD, [facility] ??([phone]), at 02/17/2024 2:12 PM Narrative 02/17/2024 2:12 PM EDT EXAMINATION: XR CHEST ONE VIEW CLINICAL HISTORY: s/p avr/cabg eval effusions TECHNIQUE: 1 view of the chest COMPARISON: Chest x-ray 01/09/2024, chest CT 02/03/2024 FINDINGS: ET tube tip terminates 5.2 cm above the carlos. Right IJ [place] catheter tip terminates in a descending branch [...] 5.2 cm above the carlos. Right IJ [place]-Ganzcatheter tip terminates in a descending branch of [...] fluid collection or pneumothorax. 2. Right IJ [place] catheter tip terminates in a descending branch ofthe right pulmonary artery. Suggest catheter retraction. 3. Additional support lines and tubes as above. Thank you for letting us participate in the care of this patient. If youare a health care provider and have any questions regarding this report,please contact the number below. For patients who have questions please contactthe health pulmonary care nurse that requested your imaging first. Electronically signed by: Denzel Hankins MD, [facility]([phone]), at 02/17/2024 2:12 PM Hayder Graham MD [...] [facility] PF Ratio Art 320 [facility] Blood 02/17/2024 1:31 PM EDT 02/17/2024 1:31 PM EDT Hayder Graham MD POINT OF CARE TEST ORDERABLES [facility] [place] [address] * (ABNORMAL) Coox2 (02/17/2024 1:21 PM EDT) [...] CARE TEST ORDERABLES [facility] [place] [address] * (ABNORMAL) BLOOD GAS 2 ARTERIAL (02/17/2024 [...] ORDERABLES Performing Organization Address [facility] de Phone Number [facility] [place] [address] * (ABNORMAL) Fibrinogen (02/17/2024 12:10 PM EDT) [...] S Performing Organization Address [facility] Co de Phone Number [facility] [place] [address] * (ABNORMAL) Thrombin time (02/17/2024 12:10 PM [...] HEMATOLOGY ORDERABLE S Performing Organization Address [facility] de Phone Number [facility] [place] [address] * APTT (02/17/2024 12:10 PM EDT) Partial [...] HEMATOLOGY ORDERABLE S Performing Organization Address [facility] de Phone Number [facility] [place] [address] * (ABNORMAL) Prothrombin Time (02/17/2024 12:10 PM [...] HEMATOLOGY ORDERABLE S [facility] [place] [address] * (ABNORMAL) Hemogram (02/17/2024 12:10 PM EDT) [...] HEMATOLOGY ORDERABLE S [facility] [place] [address] * (ABNORMAL) BLOOD GAS 2 ARTERIAL (02/17/2024 [...] CARE TEST ORDERABLES [facility] [place] [address] * (ABNORMAL) BLOOD GAS 2 ARTERIAL (02/17/2024 [...] ORDERABLES Performing Organization Address [facility] Co de Phone Number [facility] [place] [address] * (ABNORMAL) Hemoglobin and Hematocrit, blood (02/17/2024 [...] MD HEMATOLOGY ORDERABL ES Performing Organization Address City/[facility]/ZIP Co de Phone Number [facility] [place] [address] * (ABNORMAL) Platelet count (02/17/2024 11:04 AM EDT) Pathologist [facility] Platelet 106(L) 145 - 357 x10(3)/mc L [facility] Immature Plt % 1.6 0.0 - 7.4 % [facility] Comment: Limitation of the Immature Platelet Fraction (IPF)-May be less reliable when the platelet count is less than 10x450/uL due to statistical imprecision. The IPF value [...] in a decreased state of production. References: [employer] The Clinical Value of the Immature Platelet Fraction (IPF) in Cell Recovery Document Number [id number] 03/2011 [employer] The Role of the Immature Platelet Fraction (IPF) in the Differential Diagnosis of Thrombocytopenia, Document [id number] V002/15/14 P014 Blood 02/17/2024 11:0 4 AM EDT 02/17/2024 11:12 AM EDT Narrative Resulting Agency Comment Spec In Lab Hayder Graham MD HEMATOLOGY ORDERABL ES Performing Organization Address City/[facility]/ZIP Co de Phone Number [facility] [place] [address] * (ABNORMAL) Fibrinogen (02/17/2024 11:04 AM EDT) [facility] [address] Fibrinogen 149(L) 200 - 393 mg/dL [facility] [...] HEMATOLOGY ORDERABL ES [facility] [place] [address] * (ABNORMAL) BLOOD GAS 2 ARTERIAL (02/17/2024 [...] de Phone Number [facility] [place] [address] * (ABNORMAL) BLOOD GAS 2 ARTERIAL (02/17/2024 [...] CARE TEST ORDERABLES [facility] [place] [address] * Surgical Pathology Report (02/17/2024 10:01 AM EDT) Final Diagnosis [id number] ? Location: [facility]; [address] [place] [address] The signing pathologist has (i) examined the relevant preparation(s) for the specimen(s) and (ii) rendered or confirmed the diagnosis(es). . ?Surgical Pathology DIAGNOSIS Aortic valve leaflets, excision: Valve leaflets with myxoid degeneration, nodular fibrosis and dystrophic calcifications. Electronically signed by: ?Livier Montoya MD Verified: ??02/24/2024 13:49 ??Pathologist Performed at: ??-[facility] Dept. of Pathology, [place] [address] Product Controller: Job rBewer MD, FCAP, ??CLIA Certificate: [id number] SPECIMEN(S) SUBMITTED A - Aortic Valve Leaflets, [...] Sections Processing Blocks submitted for decalcification: A1. Bank Teller sections in 1 cassette labeled A1. ??ajw 02/24/2024 1:49 PM EDT [facility] AORTIC STRUCTURE / Unknown 02/17/2024 10:01 AM EDT 02/17/2024 10:01 AM EDT Hayder Graham MD PATHOLOGY/CYTOLOGY ORDERABLES [facility] [place] [address] * Specimen to Pathology (02/17/2024 10:01 AM EDT) AP Specimen 02/17/2024 10:0 1 AM EDT 02/17/2024 10:01 AM EDT Narrative [facility] - 02/17/2024 10:01 AM EDT Specimen requisition ordered. ??Separate Pathology report to follow Hayder Graham MD PATHOLOGY/CYTOLOGY ORDERABLES [facility] [place] [address] * (ABNORMAL) BLOOD GAS 2 ARTERIAL (02/17/2024 [...] CARE TEST ORDERABLES [facility] [place] [address] * (ABNORMAL) BLOOD GAS 2 VENOUS (02/17/2024 9:34 AM EDT) pH, Venous 7.22(Criti marquez) 7.32 - 7.42 [facility] Comment:Noted by instrument worker. PCO2, Venous 43 41 - 51 mmHg [facility] Comment:Noted by instrument worker. PO2, Venous 57(H) 25 - 40 mmHg [facility] Comment:Noted by instrument worker. Bicarbonate, Venous 17.1 mmol/L [facility] Comment:Noted by instrument worker. Base Excess, Venous -10.6 mmol/L [facility] Comment:Noted by instrument worker. Hgb Blood Gas 11.2(L) 13.7 - 16.5 g/dL [facility] Comment:Noted by instrument worker. Oxyhemoglobin, Venous 86.5 % [facility] Comment:Noted by instrument worker. Carboxyhemoglob in, Venous 0.3 % [facility] Comment: Noted by instrument worker. Nonsmokers: 0.5-1.5% COHB Smokers: Variable, but usually less than 10% Toxic: 20-30% COHB Lethal: Greater than 60% COHB Methemoglobin, Venous 0.0 <=1.5 % [facility] Comment:Noted by instrument worker. Na Whole Blood 156(H) 135 - 145 mmol/L [facility] Comment:Noted by instrument worker. [...] [facility] Comment:Noted by instrument worker. Gluc Whole Bld 132 65 - 199 mg/dL [facility] Comment: Noted by instrument worker. Diabetes: >=200 mg/dL plus symptoms Lactate WB 1.0 0.5 - 2.2 mmol/L [facility] Comment:Noted by instrument worker. Blood Gas Source Venous [facility] Blood 02/17/2024 9:34 AM EDT 02/17/2024 9:34 AM EDT Hayder Graham MD POINT OF CARE TEST ORDERABLES [facility] [place] [address] * (ABNORMAL) BLOOD GAS 2 ARTERIAL (02/17/2024 [...] ORDERABLES Performing Organization Address [facility] de Phone Number [facility] [place] [address] * POCT Glucose (02/17/2024 6:38 AM EDT) Glucose, POC 98 65 - 199 mg/dL [facility] Comment: Supplemental ranges: <140 mg/dL before meals <180 mg/dL all other times of the day Blood 02/17/2024 6:38 AM EDT 02/17/2024 6:38 AM EDT Hayder Graham MD POINT OF CARE TEST ORDERABLES Performing Organization Address [facility] de Phone Number [facility] [place] [address] * Transesophageal Echo/OR (02/17/2024 6:33 AM EDT) [...] [facility] post-operative [facility] of cardiac function [...] dose on Sat02/17/24 at 1400, Until Discontinued, [place] teeth and / or gums. Scan the CHG vial in the 2-Observe Q-Care Oral Care Kit from floor stock. Ventilator-associated pneumonia prophylaxis For use in ICU/Critical care locations ONLY. Obtain kit from Floor Stock location. Scan CHG vial in the 2-Observe Q-Care Oral Care Kit, Routine Given 02/17/2024 [...] 50% of previous rate. Call dye house supervisor if goal not achieved at [...] PHENYLephrine and/or vasopressin ineffective. Call pager # [phone] if initiated. Titrate to keep systolic blood [...] Maximum volume 2 L. Call dye house supervisor for additional fluid orders: pager #[phone]. Rate/Dose Verify 02/18/2024 8:00 AM EDT 1 [...] Merrill, COLBY) 0836 (Given - Provider: Jazlyn Malodnado, COLBY) timoloL (Timoptic) 0.5 % ophthalmic solution [...] Routine documented in this encounter Care Teams Qa Developer Relationship Specialty Start Date End Date Aparna Jordan APRN PCP - General Family Medicine 10/21/23 05/26/24 documented as of this encounter
--- OUTSIDE RECORDS SUMMARY | 2024-11-19 09:53 | XMS_ITS | Encounter Summary ---
Author Organization Formerly [facility] [place] [address] Care Team Providers Care Stamp Analyst Name Role Phone Vanessa Christian APRN Primary Care Provider [phone] Encounter Details Date Type Department Care Team [...] Office Visit Cardiology at [address] [address] Sheila Johnson APRN [address] [facility], [facility] [place] [address] documented as of this encounter Visit Diagnoses Not on filedocumented in this encounter Care Teams Stamp Analyst Relationship Specialty Start Date End Date Vanessa Christian APRN PCP - General Family Medicine 10/21/23 05/26/24 documented as of this encounter
--- OUTSIDE RECORDS SUMMARY | 2024-11-19 09:53 | XMS_ITS | Encounter Summary ---
[place] [address] Care Team Providers Care Supervisor Propellant Charge Loading Name Role Phone Vanessa Christian MAURI Primary Care Provider [phone] Reason for Visit * Auth/Cert (Routine) Specialty [...] RHC (WRVU 5.9) Rima Dickinson MD [facility] [place] [address] [facility] Referral ID Status Reason Start Date Expiration Date Visits Re quested Visits Authorized [id number] 1 1 Encounter Details Date Type Department Care Team (Late st Contact Info) Description 02/03/2024 10:00 AM EDT - 02/03/2024 11:00 AM EDT Surgery [place] [address] Saira Lua MD CARDIAC CATHETERIZATION Social History [...] lbs Follow-up Visits Follow up with your hotel front office manager in 2-4 weeks Access Site 'Black and Blue' and tenderness is expected during the first week Call if you noted a mass (lump) greater than the size of a ellis Call Office with any Questions and if you have any of the following Clarence Lane M.D Interventional Customer Service Leader School Bus Operator #: [phone] * Attachments The following attachments cannot be sent through Care Everywhere. * CAD (Coronary Artery Disease): General Info (Iraqi) * Coronary Angiogram: Post-op (Iraqi) documented in this encounter Medications at Time [...] Lane MD - 02/03/2024 11:48 AM EDT [facility] Interventional Cardiology Adult Pre-Procedure H&P Update: Cardiac Catheterization Karlos Anthony [id number] 1960 Chief Complaint: Aortic stenosis HPI: Mr. [...] is inthe chart Clarence Lane MD Interventional Customer Service Leader 02/03/24 11:48 AM documented in this encounter Miscellaneous Notes * Brief Op Note - Clarence Lane MD - 02/03/2024 12:51 PM EDT Preliminary Cardiac Catheterization Procedure Note: Patient Name: Karlos Anthony : [id number] MR#: [id number] Case Date: 02/03/2024 School Bus Operator: Surgeon(s) and Role: * Saira Lua [...] 3:00 PM EST Office Visit Cardiology at [place] [address] [place] [phone] Sheila Johnson, MAURI [address] [facility], [facility] [place] [address] Scheduled Orders Name Type Priority Associated Diagnoses [...] 02/12/2024 3:47 PM EDT ?[facility] ? Cardiac Catheterization/Intervention Report ? Patient Name: Patenaude, Karlos ? Procedure Date: 02/03/2024 ? A #: [id number] ? Primary Physician: Saira Lua ? Case #: [id number] ? File Name: [id number] ? Catheterization Order Number: [id number] ? [facility] ? Final Report [place], [place] ? Patient Name: ? Karlos Patenaude ? ID#: ?[id number] ? : ?1960 ? Procedure Date: ? [...] Lua MD - 02/12/2024 [facility] Cardiac Catheterization/Intervention Report Patient Name: Karlos Anthony Procedure Date: 02/03/2024 A #: [id number] Primary Physician: Saira Lua Case #: [id number] File Name: [id number] Catheterization Order Number: [id number] [facility] [place] Patient Name: Karlos Anthony ID#:[id number] :1960 Procedure Date: February 03, 2024 Case [...] was designated as ASA Class III. The [facility] clinical frailty scale is 3: Managing [...] (Bezet) 372 ms MUSE SYSTEM Calculated P Sabael 59 degrees MUSE SYSTEM Calculated R Sabael 34 degrees MUSE SYSTEM Calculated T Sabael 63 degrees MUSE SYSTEM INTERPRETATION Sinus bradycardia [...] Routine 1227 (Given - Provid er: Rogerio Olievros) heparin (porcine) (1,000 units/mL) injection PRN, Starting [...] documented in this encounter Care Teams Supervisor Propellant Charge Loading Relationship Specialty Start Date End Date Vanessa Christian, MAURI PCP - General Family Medicine 10/21/23 05/26/24 documented as of this encounter
--- OUTSIDE RECORDS SUMMARY | 2024-11-19 09:53 | XMS_ITS | Encounter Summary ---
Author Organization [facility] Address [facility] [place] [address] Care Team Providers Care Automatic Drill Operator Name Role Phone Vanessa Christian MAURI Primary Care Provider [phone] Encounter Details Date Type Department Care Team (Late st Contact Info) Description 02/14/2024 Orders [place] [phone] Zak Farmer MD [facility] [place] [address] Coronary artery disease, unspecified vessel or lesion type, unspecified whether angina present, unspecified whether citizen [place] or transplanted heart (Primary Dx) Social [...] PM EST Office Visit Cardiology at [address] [place] [address] Sheila Johnson A, DISABILITY INSURANCE CLAIM EXAMINER [address] A CARDIOLOGY [place], [place] [id number] documented as of this encounter Results * EKG 12 Lead (03/12/2024 2:35 PM EDT) Ventricular rate 59 BPM MUSE SYSTEM Atrial Rate 59 BPM MUSE SYSTEM P-R Interval 190 ms MUSE SYSTEM QRS Duration 92 ms MUSE SYSTEM Q-T Interval 406 ms MUSE SYSTEM QTC Calculated (Bezet) 401 ms MUSE SYSTEM Calculated P [place] -12 degrees MUSE SYSTEM Calculated R [place] 24 degrees MUSE SYSTEM Calculated T [place] 74 degrees MUSE SYSTEM INTERPRETATION Sinus bradycardia T wave abnormality, consider anterior ischemia Abnormal ECG When compared with ECG of 17-FEB-2024 13:24, IN interval has decreased T wave inversion now evident in Anterior leads Confirmed by Paul Guzman ([id number]) on 03/15/2024 8:36:23 AM MUSE SYSTEM 03/12/2024 2:35 PM EDT 03/15/2024 8:36 AM EDT Zak Farmer MD ECG ORDERABLES MUSE SYSTEM * XR Chest PA & Lateral (Generic) (03/12/2024 1:42 PM EDT) WORKSTATION ID [id number] [facility] Anatomical Region Laterality Modality Chest N/A [...] ? 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 Electronically signed by: Augie Sanchez MD, [facility]([phone]), at 03/13/2024 8:28 AM Zak Farmer MD IMG DX ORDERABLES documented in this encounter Visit Diagnoses Diagnosis Coronary artery disease, unspecified vessel or lesion type, unspecified whether angina present, unspecified whether citizen [place]i or transplanted heart- Primary Coronary artery disease, unspecified vessel or lesion type, unspecified whether angina present, unspecified whether citizen [place] or transplanted heart documented in this encounter Care Teams Automatic Drill Operator Relationship Specialty Start Date End Date Vanessa Christian APRN PCP - General Family Medicine 10/21/23 05/26/24 documented as of this encounter
--- OUTSIDE RECORDS SUMMARY | 2024-11-19 09:54 | XMS_ITS | Encounter Summary ---
Author Organization [facility] Address [facility] [place] [address] Care Team Providers Care Premium Note Interest Calculator Clerk Name Role Phone Vanessa Christian MAURI Primary Care Provider [phone] Reason for Visit * Consultation (Routine) - Closed Specialty Diagnoses / Procedures Referred By Contac t Referred To Contact Cardiac Surgery Diagnoses Nonrheumatic aortic valve stenosis significant - TAVR ( defers to Card Surg d/t age) Neftali Ernandez MD [facility] [place] [address] Zak Farmer MD [facility] [place] [address] Referral ID Status Reason Start Date Expiration Date V isits Requested Visits Authorized [id number] Closed Consult, Test & Treat 10/21/2023 10/20/2024 1 1 Encounter Details Date Type Department Care Team (Late st Contact Info) Description 01/09/2024 1:40 PM EDT Office [place] [address] Zak Farmer MD [facility] [place] [address] Nonrheumatic aortic valve stenosis Social [...] office. Best personal regards, Zak Farmer MD [phone] In aggregate 55 minutes were spent evaluating [...] 3:00 PM EST Office Visit Cardiology at [place] [address] [place] [address] Sheila Johnson, MAURI [address] [facility] [place] [address] documented as of this encounter Results * [...] Toby Dave MD, [facility] ([phone]), at 01/09/2024 3:11 PM Narrative 01/09/2024 3:11 [...] [facility] [place] [address] * Hepatic Function Panel (01/09/2024 2:58 PM [...] ORDERABLE S Performing Organization Address [facility] de Phone Number [facility] [place] [address] * Prothrombin Time (01/09/2024 2:58 PM EDT) [facility] Prothrombin Time 10.6 9.4 - 12.5 [...] MD HEMATOLOGY ORDERABL ES Performing Organization Address City/[facility] Co de Phone Number [facility] [place] [address] * Type and Screen Future Surgery, [facility] [...] Zak Farmer MD BLOOD BANK LAB ORDE [facility] Organization Address City/State/ZIP Co de Phone Number [facility] [place] [address] documented in this encounter Visit Diagnoses Diagnosis Nonrheumatic aortic valve stenosis Aortic valve disorders Nonrheumatic aortic valve stenosis Aortic valve disorders documented in this encounter Care Teams Premium Note Interest Calculator Clerk Relationship Specialty Start Date End Date Vanessa Christian, MAURI PCP - General Family Medicine 10/21/23 05/26/24 documented as of this encounter
--- OUTSIDE RECORDS SUMMARY | 2024-11-19 09:54 | XMS_ITS | Encounter Summary ---
Author Organization [facility] [place] [address] Care Team Providers Care Churn Drill Operator Name Role Phone Victor M Lafleur MD Primary Care Provider [phone] Encounter Details Date Type Department Care Team (Late st Contact Info) Description 09/26/2023 Abstract Cardiology at [address] [address] Karen Billy, RN Nonrheumatic aortic [...] PM EST Office Visit Cardiology at [address] [address] Sheila Johnson APRN [address] [place] [address], [facility] CARDIOLOGY [place], [place] [id number] documented as of this encounter Visit Diagnoses Diagnosis Nonrheumatic aortic valve stenosis Aortic valve disorders Nevus of face Benign neoplasm of skin of other and unspecified parts of face documented in this encounter Care Teams Churn Drill Operator Relationship Specialty Start Date End Date Victor M Lafleur MD PCP - General 10/02/13 10/20/23 documented as of this encounter
--- OUTSIDE RECORDS SUMMARY | 2024-11-19 09:54 | XMS_ITS | Encounter Summary ---
Author Organization [facility] [place] [address] Care Team Providers Care Gas Station Supervisor Name Role Phone Vanessa Christian APRN Primary Care Provider Encounter Details Date Type Department Care Team (Late st Contact Info) Description 10/21/2023 Abstract Cardiology at [address] [phone] Adam Mayes RN Social History Tobacco Use [...] PM EST Office Visit Cardiology at [address] [phone] Sheila Johnson APRN [address] [facility], [facility] [place] [place] [address] documented as of this encounter Visit Diagnoses Not on filedocumented in this encounter Care Teams Gas Station Supervisor Relationship Specialty Start Date End Date Vanessa Christian APRN PCP - General Family Medicine 10/21/23 05/26/24 documented as of this encounter
--- OUTSIDE RECORDS SUMMARY | 2024-11-19 09:54 | XMS_ITS | Encounter Summary ---
Author Organization [facility] [place] [address] Care Team Providers Care Class 1 Owner Operator Name Role Phone Vanessa Christian MAURI Primary Care Provider [phone] Encounter Details Date Type Department Care Team (Late st Contact Info) Description 01/10/2024 Orders Only [place] [id number] Lawson Napoles PA [facility] [place] [address] Screening for cardiovascular condition; Aortic valve stenosis, [...] PM EST Office Visit Cardiology at [address] [place] [id number] Sheila Johnson APRN [address], [place] [address] documented as of this encounter Visit Diagnoses Diagnosis Screening for cardiovascular condition Screening for other and unspecified cardiovascular conditions Aortic valve stenosis, etiology of cardiac valve disease unspecified documented in this encounter Care Teams Class 1 Owner Operator Relationship Specialty Start Date End Date Vanessa Christian APRN PCP - General Family Medicine 10/21/23 05/26/24 documented as of this encounter
--- OUTSIDE RECORDS SUMMARY | 2024-11-19 09:54 | XMS_ITS | Encounter Summary ---
[facility] [place] [address] Care Team Providers Care Undraped Artist Model Name Role Phone Vanessa Christian APRN Primary Care Provider [phone] Encounter Details Date Type Department Care Team [...] PM EST Office Visit Cardiology at [address] [place] [address] Sheila Johnson APRN [address] [facility], [facility] [place] [address] documented as of this encounter Visit Diagnoses Not on filedocumented in this encounter Care Teams Undraped Artist Model Relationship Specialty Start Date End Date Vanessa Christian APRN PCP - General Family Medicine 10/21/23 05/26/24 documented as of this encounter
--- OUTSIDE RECORDS SUMMARY | 2024-11-19 09:54 | XMS_ITS | Encounter Summary ---
Author Organization [facility] [place] [address] Care Team Providers Care Curriculum Supervisor Name Role Phone Vanessa Christian DATABASE TECHNICIAN Primary Care Provider [phone] Reason for Referral * Diagnostic Test (Routine) - Closed Specialty Diagnoses / Procedures Referred By Contac t Referred To Contact Radiology Diagnoses Nonrheumatic aortic valve stenosis Procedures CT Chest wo Contrast (Generic) Louisa Reid PA [facility] [place] [address] [facility] [place] [address] Referral ID Status Reason Start Date Expiration Date V isits Requested Visits Authorized [id number] Closed Specialty Service Requested 01/10/2024 07/11/2025 1 1 Encounter Details Date Type Department Care Team (Late st Contact Info) Description 01/09/2024 Orders [place] [address] Zak Farmer MD [facility] [place] [address] Nonrheumatic aortic valve stenosis Social History Tobacco [...] PM EST Office Visit Cardiology at [address] [address] Sheila Johnson APRN [address] [facility], [facility] [place] [address] documented as of this encounter Results * CT Chest wo Contrast (Generic) (02/03/2024 7:44 AM EDT) [facility] Signature WORKSTATION ID [id number] RAD Anatomical Region Laterality Modality Chest Computed [...] questions please contact the health acute care occupational therapist that requested your imaging first. ? Electronically signed by: Rogerio Wright MD, [facility] ([phone]), at 02/03/2024 10:00 AM Narrative 02/03/2024 10:00 [...] have questions please contactthe health acute care occupational therapist that requested your imaging first. Electronically signed by: Rogerio Wright MD, [facility]([phone]), at 02/03/2024 10:00 AM Zak Farmer MD IMG CT ORDERABLES documented in this encounter Visit Diagnoses Diagnosis Nonrheumatic aortic valve stenosis Aortic valve disorders Nonrheumatic aortic valve stenosis Aortic valve disorders documented in this encounter Care Teams Curriculum Supervisor Relationship Specialty Start Date End Date Vanessa Christian APRN PCP - General Family Medicine 10/21/23 05/26/24 documented as of this encounter
--- OUTSIDE RECORDS SUMMARY | 2024-11-19 09:54 | XMS_ITS | Data Portability ---
Author Organization [place] - [facility] Address [address] [place] [address] Care Team Providers Care Refuse Collector Supervisor Name Role Phone APARNA JORDAN Primary Care Provider SOFIA MCALLISTER Dentist Assessment No assessment recorded. Plan of Treatment Reminders Order Date Submit Date Provider Last Modified By Organization Details Last Modified Time Details Appointments None recorded . Lab magnesiu m, serum or plasma 024 12/18/19 24 [facility] (Registration ), [address] [place] [address] [place], [address], 4 14:25:25 BMP, serum or plasma 024 12/18/19 24 [email or web address] [facility] (Registration ), [address] [place] [address] [place], [address], 4 14:25:24 Referral None recorded . Procedures None recorded . Surgeries None recorded . Imaging None recorded . Medication Orders None recorded . Patient TargetsNo targets recorded. Patient Instructions Encounter Date Encounter Id Patient Instructions Last Modified By Organization Details Last Modified Time 09/19/2023 [id number] SCHEDULE FOLLOW UP IN 3 MONTHS IF YOU DONT HEAR FROM THE CARDIOLOGY DEPT THIS WEEK CALL [facility] FITNESS TECHNICIAN AND LET THEM KNOW IF YOUR BREATHING GETS WORSE- GO TO THE ER, DONT OVER DO THINGS PHYSICALLY EXPECT A CALL FROM SARA ZAFAR RE: UPDATING YOUR POWER OF HUMAN PROJECTILE (NEED 2 WITNESSED SIGNATURES) Not available 09/19/2023 09:25:07 12/18/2023 [id number] Karlos: expect a call from the STructural heart team at [facility] drink at least 6 glasses of water [...] mg/dL 8.5-10 .1 normal Not Available [address] [place], [address] 12/18/2023 17:09:55 12/18/19 24 12/18/2023 LASIC METAB OLIC PANEL glucose 90 mg/dL 74-106 normal Not Available Baljit montemayor [address] [place], [address] 12/18/2023 17:09:55 12/18/19 24 12/18/2023 LASIC METAB OLIC PANEL BUN 14 mg/dL 7-18 normal Not Available Baljit montemayor [address] [place], [address] 12/18/2023 17:09:55 12/18/19 24 12/18/2023 LASIC METAB OLIC PANEL creatinine 1.0 mg/dL 0.70-1 .30 normal Not Available [address] [place], [address] 12/18/2023 17:09:55 12/18/19 24 12/18/2023 LASIC METAB [...] er-ag ed adult s. Not Available [address] [place], [address] 12/18/2023 17:09:55 12/18/19 24 12/18/2023 LASIC METAB OLIC PANEL sodium 139 mmol/ L 136-14 5 normal Not Available [address] [place], [address] 12/18/2023 17:09:55 12/18/19 24 12/18/2023 LASIC METAB OLIC PANEL potassium 4.9 mmol/ L 3.5-5. 1 normal Not Available [address] [place], [address] 12/18/2023 17:09:55 12/18/19 24 12/18/2023 LASIC METAB OLIC PANEL chloride 104 mmol/ L 98-107 normal Not Available [address] [place], [address] 12/18/2023 17:09:55 12/18/19 24 12/18/2023 LASIC METAB OLIC PANEL CO2 30.9 mmol/ L 21.0-3 2.0 normal Not Available [address] [place], [address] 12/18/2023 17:09:55 12/18/19 24 12/18/2023 LASIC METAB OLIC PANEL anion gap 4.1 mmol/ L 3-11 normal Not Available [address] [place], [address] 12/18/2023 17:09:55 12/18/19 24 12/18/2023 MAGNE SIUM magnesium 1.8 mg/dL 1.8-2. 4 normal Not Available [address] [place], [address] 12/18/2023 17:09:56 07/27/20 24 07/27/2024 LIPID 2 cholesterol 131 mg/dL <200 Not Available [address] [place], [address] 07/27/2024 11:59:38 07/27/20 24 07/27/2024 LIPID 2 triglyceride 162 mg/dL <150 high Not Available [address] [place], [address] 07/27/2024 11:59:38 07/27/2007/27/2024 LIPID 2 HDL cholesterol 35 mg/dL 40-60 low Not Available Dominique blackburn [address] [place], [address] 07/27/2024 11:59:38 07/27/2007/27/2024 LIPID 2 calculated LDL [...] years or older . Not Available [address] [place], [address] 07/27/2024 11:59:38 07/27/2007/27/2024 COMPR EHENS MDAYSON METAB OLIC PANEL calcium 9.2 mg/dL 8.5-10 .1 normal Not Available [address] [place], [address] 07/27/2024 11:59:38 07/27/2007/27/2024 COMPR EHENS MADYSON METAB OLIC PANEL glucose 83 mg/dL 74-106 normal Not Available Baljit montemayor [address] [place], [address] 07/27/2024 11:59:38 07/27/2007/27/2024 COMPR EHENS MADYSON METAB OLIC PANEL BUN 20 mg/dL 7-18 high Not Available Baljit montemayor [address] [place], [address] 07/27/2024 11:59:38 07/27/2007/27/2024 COMPR EHENS MADYSON METAB OLIC PANEL creatinine 1.0 mg/dL 0.70-1 .30 normal Not Available [address] [place], [address] 07/27/2024 11:59:38 07/27/2007/27/2024 COMPR EHENS MADYSON METAB [...] er-ag ed adult s. Not Available [address] [place], [address] 07/27/2024 11:59:38 07/27/2007/27/2024 COMPR EHENS MADYSON METAB OLIC PANEL total protein 6.8 g/dL 6.4-8. 2 normal Not Available [address] [place], [address] 07/27/2024 11:59:38 07/27/2007/27/2024 COMPR EHENS MADYSON METAB OLIC PANEL albumin 3.5 g/dL 3.4-5. 0 normal Not Available [address] [place], [address] 07/27/2024 11:59:38 07/27/2007/27/2024 COMPR EHENS MADYSON METAB OLIC PANEL bilirubin, total 0.77 mg/dL 0.2-1. 0 normal Not Available [address] [place], [address] 07/27/2024 11:59:38 07/27/2007/27/2024 COMPR EHENS MADYSON METAB OLIC PANEL alk phos 84 U/L 46-116 normal Not Available [address] [place], [address] 07/27/2024 11:59:38 07/27/2007/27/2024 COMPR EHENS MADYSON METAB OLIC PANEL sodium 141 mmol/ L 136-14 5 normal Not Available [address] [place], [address] 07/27/2024 11:59:38 07/27/2007/27/2024 COMPR EHENS MADYSON METAB OLIC PANEL potassium 4.8 mmol/ L 3.5-5. 1 normal Not Available [address] [place], [address] 07/27/2024 11:59:38 07/27/2007/27/2024 COMPR EHENS MADYSON METAB OLIC PANEL chloride 105 mmol/ L 98-107 normal Not Available [address] [place], [address] 07/27/2024 11:59:38 07/27/2007/27/2024 COMPR EHENS MADYSON METAB OLIC PANEL CO2 30.9 mmol/ L 21.0-3 2.0 normal Not Available [address] [place], [address] 07/27/2024 11:59:38 07/27/2007/27/2024 COMPR EHENS MADYSON METAB OLIC PANEL anion gap 5.1 mmol/ L 3-11 normal Not Available [address] [place], [address] 07/27/2024 11:59:38 07/27/2007/27/2024 COMPR EHENS MADYSON METAB OLIC PANEL AST 20 U/L 15-37 normal Not Available Baljit montemayor [address] [place], [address] 07/27/2024 11:59:38 07/27/2007/27/2024 COMPR EHENS MADYSON METAB OLIC PANEL ALT 32 U/L 16-63 normal Not Available Baljit montemayor [address] [place], [address] 07/27/2024 11:59:38 07/27/2007/27/2024 CREAT INE KINAS E creatine kinase 133 U/L 39-308 normal Not Available [facility] [address] , [place], [address] 07/27/2024 11:48:30 09/11/2012/05/2022 trans -thor acic echoc ardio gram (TTE) (PROC ) No observ ation record ed. [email or web address] [facility] Xray [address] , [place], [address], 09/13/2023 09:29:52 09/11/20 23 06/01/2022 XR, hip, unila teral No observ ation record ed. [email or web address] Not Available 2022 09:29:19 09/11/2012/06/2019 , echoc ardio gram No observ ation record ed. 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 [...] the addres s above. Thank- you. INTERFACE [facility] [address], [place], [address] 07/27/2024 18:10:30 Result Notes None recorded. Problems Name Problem SNOMED Code Status Onset Date Resolution Date Notes Provider Name and Address Organization Details Recorded Time Gastroes ophageal reflux disease without esophagi tis 233790955 Active 2022 Problem Code: K21.9; Problem Code Type: ICD-10; Not Available [facility] 4 05:35:57 Glaucoma 43361282 Active 2022 Problem Code: H40.9; Problem Code Type: ICD-10; Not Available [facility] 4 05:35:57 Hyperlip idemia 92081191 Active 2022 Problem Code: E78.5; Problem Code Type: ICD-10; Not Available [facility] 4 05:35:57 [facility] hyperten marisol 85744885 Active 2022 Problem Code: I10; Problem Code Type: ICD-10; Not Available [facility] 4 05:35:57 Pain of left hip joint 58986778382 9100 Active 2022 Problem Code: M25.552; Problem Code Type: ICD-10; Not Available [facility] 4 05:35:57 Idiopath ic osteoart hritis 075188202 Active 2022 Problem Code: M16.12; Problem Code Type: ICD-10; Not Available [facility] 4 05:35:57 Inguinal hernia 550994042 Active 2022 Problem Code: K40.90; Problem Code Type: ICD-10; Not Available [facility] 4 05:35:57 Heart murmur 93127846 Active 2022 Problem Code: R01.1; Problem Code Type: ICD-10; Not Available [facility] 4 05:35:57 Dyspnea 283689746 Active 2022 Problem Code: R06.09; Problem Code Type: ICD-10; Not Available [facility] 4 05:35:57 Chest pain 29707015 Active 2022 Problem Code: R07.89; Problem Code Type: ICD-10; Not Available [facility] 4 05:35:57 Melanocy tic nevus 354390493 Active 2022 Problem Code: D22.9; Problem Code Type: ICD-10; Not Available [facility] 4 05:35:57 Aortic stenosis , non-rheu matic 713312519 Active 2022 Problem Code: I35.0; Problem Code Type: ICD-10; Not Available [facility] 4 05:35:58 Aortic stenosis , non-rheu matic 975874504 Completed 202208/14/2023 Problem Code: I35.0; Problem Code Type: ICD-10; Not Available [facility] 4 05:35:58 Indigest ion 729637915 Active 2023 GLORIA CAMP LPN null, [facility] 4 08:48:57 Coronary artery bypass grafts x 3 Active 2023 Kelly Duran RN null, [facility] 4 10:30:01 At increase d risk of atrial fibrilla tion 749171735 Active [address], [place], [address] , [facility] 4 13:52:01 Anemia 099815366 Active [address], [place], [address] , [facility] 4 13:54:39 Problem Notes None recorded. Procedures Surgical History Date Name Laterality Status Provider Name and Address Organization Details Recorded Time coronary artery bypass graft completed Hudson Reeder MA [facility] 03/04/2024 14:54:09 Imaging Results Imaging Date Name Status LastModified by Organization Details LastModified Time 12/05/2022 trans-thoracic echocardiogram (TTE) (PROC) completed [address] Xray [address] , [place], [address], 09/13/2023 09:29:52 06/01/2022 XR, hip, unilateral [place] [address] Information not available 09/13/2023 09:29:19 12/06/2019 US, echocardiogram completed [address]- Cardiology [address] [place] [address] [place], [address], 09/13/2023 09:28:49 07/27/2024 x-ray imaging report completed INTERFACE [address] [place], [address] 07/27/2024 18:10:30 Procedure Notes None recorded. Medical [...] es. Take 1 hr prior. Started by [facility]. Not Available Not Available Not Available doxycycli [...] BY MOUTH DAILY 02/24 completed stopped by [facility] Not Available Not Available Not Available brimonidi [...] hours by oral route as needed. active [facility] Not Available Not Available No t Available Aspirin Childrens 81 mg chewable tablet Take 1 tablet by mouth once a day active Not Available Not Available No t Available lisinopri l 5 mg tablet TAKE 1 TABLET BY MOUTH EVERY DAY 02/24 completed stopped by [facility] Not Available Not Available Not Available mupirocin [...] day by oral route. active started by [facility] Not Available Not Available Not Available dorzolami de 2 % (PF) eye drops 1 drop both eyes bid 12/17 completed Not Available Not Available Not Available Vitals Date Recorded Body weight Body mass index (BMI) Body height Heart rate Systolic blood pressure Diastolic blood pressure Provider Name and Address Organization Details Last Updated DateTime 3 58794.7 8 g 23.7 kg/m2 167.64 cm 64 /min 110 mm[Hg] 60 mm[Hg] GLORIA CAMP LPN [facility] 3 08:48:49 Date Recorded Body height Body mass index (BMI) Body weight Heart rate Systolic blood pressure Diastolic blood pressure Provider Name and Address Organization Details Last Updated DateTime 4 167.64 cm 24.6 kg/m2 56244.4 4 g 60 /min 112 mm[Hg] 80 mm[Hg] GLORIA CAMP LPN [facility] 4 08:38:13 Date Recorded Body height Body mass index (BMI) Body weight Heart rate Oxygen saturation Oxygen saturation in Arterial blood by Pulse oximetry Systolic blood pressure Diastolic blood pressure Provider Name and Address Organization Details Last Updated DateTime 4 167.64 cm 22.6 kg/m2 18189.6 5 g 63 /min 99 % 99 % 102 mm[Hg] 54 mm[Hg] Hudson Reeder MA [facility] 4 10:27:28 Social History Question Answer Notes LastModified by Organizat ion Details LastModified Time Tobacco Smoking Status Former Smoker Hudson Reeder MA null, [place] - [facility]. 03/06/2024 10:24:50 Do You Have An Advance Directive? Yes Registered 08/15/23 Updated 01/12/24 Information not available 01/15/2024 When Did You Quit Smoking? 11-15years sincelastc igarette [email or web address] Information not available 03/06/2024 Do You Have A Medical Power Of Flight Operations Manager? Yes Received 08/30/23, Scanned. Copies Sent To [facility] And Patient 09/02/23. Information not available 09/02/2023 What Was The Date Of Your Most Recent Tobacco Screening? 03/06/2024 [email or web address] Information not available 03/06/2024 What Is Your Current Pack Years? 30ormorepa ckyears [email or web address] Information not available 03/06/2024 How Much Tobacco Do You Smoke? 1 PPD [email or web address] Information not available 03/06/2024 How Many Years Have You Smoked Tobacco? 40 [email or web address] Information not available 03/06/2024 Do You Or Have You Ever Used Any Other Forms Of Tobacco Or Nicotine? No [email or web address] Information not available 03/06/2024 Sex: Male Functional [...] Recorded Time Tdap 3 completed Not Available [facility] 10/18/2023 05:30:17 Td(adult) unspecified formulation 3 completed Not Available [facility] 10/18/2023 05:30:17 COVID-19, mRNA, LNP-S, PF, 100 mcg/0.5mL dose or 50 mcg/0.25mL dose 1 completed Not Available [facility] 10/18/2023 05:30:18 COVID-19, mRNA, LNP-S, PF, 100 mcg/0.5mL dose or 50 mcg/0.25mL dose 1 completed Not Available [facility] 10/18/2023 05:30:18 COVID-19, mRNA, LNP-S, PF, 100 mcg/0.5mL dose or 50 mcg/0.25mL dose 1 completed Not Available [facility] 10/18/2023 05:30:18 influenza, unspecified formulation 1 completed Not Available [facility] 10/18/2023 05:30:18 influenza, unspecified formulation 2 completed Not Available [facility] 10/18/2023 05:30:18 influenza, unspecified formulation 0 completed Not Available [facility] 10/18/2023 05:30:18 influenza, unspecified formulation 9 completed Not Available [facility] 10/18/2023 05:30:18 influenza, unspecified formulation 8 completed Not Available [facility] 10/18/2023 05:30:18 Past Encounters Encounter ID Performer Location Encounter Start Date Encounter Closed Date Diagnosis/Indication Diagnosis SNOMED-CT Code Diagnosis ICD10 Code Diagnosis Note [id number] APARNA JORDAN [address] [address] 09/19/2023 08:39:51 09/19/2023 09:17:42 Aortic valve stenosis 67003306 I35.0 Moderate? severe? he was referred subacutely to [facility] cardiology almost 6 weeks ago, front office staff contacted their clinic and they said they did not get the referral, will be refaxed today if patient does not hear from them by the end of the week he knows to contact [facility]. His SILVA is not worsening, he understand s that if it does get worse he needs to go to the emergency room. Essential hypertension 72614907 I10 BP at goal 110/60, continues on lisinopril 5 mg daily. [id number] AMRITA PUENTE [address] [address] 12/18/2023 08:23:47 12/18/2023 09:29:09 Aortic stenosis, non-rheumatic 196352009 I35.0 I have left a message for the structural heart team at [facility] regarding patient's referral, will have the front office staff ensure that the [facility] echocardio gram images are at [facility]. I will forward my note from today now patient with associated chest pressure at times w/SILVA, goal is to get an appointmen t for the patient within the next few days. Meanwhile, we will have him limit exertional physical activity, he understand s to go to the emergency room if the chest pressure returns and does not resolve. Essential hypertension 35507225 I10 He has increased the lisinopril to 10 mg on his own, will reorder and check a BMP today BP at goal 112/80 Nonulcer dyspepsia 43087 07 K30 Check BMP and magnesium, continues with OTC PPI daily. Cramp in lower leg 02827 800 R25.2 Intermitte nt, he is not well-hydra xochilt, advised him to increase his fluids to at least 6 glasses of water a day, will check BMP and magnesium today. [id number] TATYANA LEDEZMA MD [facility] [address] [place] [address] 03/06/2024 10:15:07 03/06/2024 11:14:28 Postoperative visit 086057898 Z48.89 Karlos doing very well. Currently. Slowly resume usual activities . He knows to not lift anything more than 5 pounds until given guidance from CT surgery. He is not driving. He no longer feels he needs any pain medication and will stop taking the Tylenol except as needed. Aortic rosa m nosis, non-rheumatic 056975996 I35.0 Status post aortic valve replacemen t, clinically doing well. He feels his breathing is getting back on track again. He knows to use amoxicilli n for dental/oth er procedures . He continues on apixaban, aspirin. He is on omeprazole . Stented co ronary artery 595086944 Z95.5 Now status post CABG. He will be starting cardiac rehab soon, does not yet have a local cardiology follow-up scheduled, he will contact [facility] to make sure referral was sent. He will continue on the aspirin, atorvastat in. He is on metoprolol 100 mg twice daily. Blood pressure in the office today was 102/54, pulse 63. He denies lightheade dness. He can discuss with cardiology potential dosage reduction in the future. At [facility] risk of atrial fibrillation 991323654 Z91.89 , He did have postoperat madyson A-fib although that did resolve. It does not sound like he is having any significan t symptoms suggestive of A-fib currently. Sounded normal sinus rhythm in the office. He does continue on apixaban. Anemia 036113860 D64.9 Mild postop. Hemoglobin was 12.3 postoperat [...] Alicia Member ID Guarantor Name 12/18/2023 1 [facility] [id number] Karlos C Patenaude [id number] Karlos C Patenaude 03/06/2024 1 [facility] [id number] Karlos C Patenaude [id number] Karlos C Patenaude Notes Date Note Type Note Provider Name and Address Organization Details Recorded Time 09/19/2023 text/html 63-year-old man here for follow-up hypertension, severe aortic stenosis.,He works full-time at [employer]. He lives at home with his dog. He has not heard from [facility] cardiology? referred mid-August.He did decrease [...] to mild aortic insufficiency. [address], [place], [address], [facility], [facility]. 09/19/2023 13:31:38 12/18/2023 text/html 63-year-old man here for follow-up hypertension, severe aortic stenosis.,He works full-time at [employer]. He lives at home with his dog. [...] Ovaltine in his coffee. [address], [place], [address], [facility], [facility]. 12/18/2023 11:43:00 03/06/2024 text/html Karlos is here today for a postop evaluation MD [address], [place], [address], [facility], [facility]. 03/08/2024 13:57:34
--- OUTSIDE RECORDS SUMMARY | 2024-11-19 09:54 | XMS_ITS | Encounter Summary ---
Author Organization [facility] Address [facility] Ivana linareseileen [place] [id number] Care Team Providers Care Manual Machinist Name Role Phone Vanessa Christian MAURI Primary Care Provider [phone] Reason for Referral * Consultation (Routine) - Closed Specialty Diagnoses / Procedures Referred By Contac t Referred To Contact Cardiac Surgery Diagnoses Nonrheumatic aortic valve stenosis significant - TAVR ( defers to Card Surg d/t age) Errol Loya MD [facility] [place] [address] Zak Farmer MD [facility] CARDIOTH[facility]ACIC [place] [address] Referral ID Status Reason Start Date Expiration Date V isits Requested Visits Authorized [id number] Closed Consult, Test & Treat 10/21/2023 10/20/2024 1 1 Reason for Visit * Reason Comments Chest Pain Shortness of Breath Aortic Stenosis Encounter Details Date Type Department Care Team (Late st Contact Info) Description 10/21/2023 1:20 PM EST Office Visit Cardiology at [address] [address] Errol Loya MD [facility] [place] [address] Nonrheumatic aortic valve stenosis Social History Tobacco [...] Problem List Diagnosis Aortic stenosis 12/2022 TTE ([facility]): VITA 0.8-0.9 [...] PM EST Office Visit Cardiology at [address] [address] Sheila Johnson APRN [address] [facility] [place] [address] Scheduled Referrals Name Type Priority Associated Diagnoses Order Schedule Amb Referral to Structural Heart Outpatient Referral Routine Nonrheumatic aortic valve stenosis Ordered: 10/21/2023 documented as of this encounter Visit Diagnoses Diagnosis Nonrheumatic aortic valve stenosis Aortic valve disorders documented in this encounter Care Teams Manual Machinist Relationship Specialty Start Date End Date Vanessa Christian APRN PCP - General Family Medicine 10/21/23 05/26/24 documented as of this encounter
--- OUTSIDE RECORDS SUMMARY | 2024-11-19 09:54 | XMS_ITS | Encounter Summary ---
[place] [address] Care Team Providers Care Energy Rater Name Role Phone Vanessa Christian Lane DOTSON Primary Care Provider [phone] Reason for Referral * Diagnostic Test (Routine) - Closed Specialty Diagnoses / Procedures Referred By Contac t Referred To Contact Radiology Diagnoses Nonrheumatic aortic valve stenosis Procedures CT Chest wo Contrast (Generic) Louisa Cho PA [facility] [place] [address] [facility] [place] [address] Referral ID Status Reason Start Date Expiration Date V isits Requested Visits Authorized [id number] Closed Specialty Service Requested 01/10/2024 07/11/2025 1 1 Reason for Visit * Diagnostic Test (Routine) - Closed Specialty Diagnoses / Procedures Referred By Contac t Referred To Contact Radiology Diagnoses Nonrheumatic aortic valve stenosis Procedures CT Chest wo Contrast (Generic) Louisa Cho PA [facility] [place] [address] [facility] [place] [address] Referral ID Status Reason Start Date Expiration Date V isits Requested Visits Authorized [id number] Closed Specialty Service Requested 01/10/2024 07/11/2025 1 1 Encounter Details Date Type Department Care Team (Latest Contact Info) Description 02/03/2024 7:36 AM EDT - 02/03/2024 8:05 AM EDT Hospital Encounter CT Scan at [facility] [place] [address] Zak Farmer MD [facility] [place] [address] Nonrheumatic aortic valve stenosis Discharge Disposition: Home Social History Tobacco Use Types Packs/Day Years Used Date Smoking Tobacco: Former Cigarettes Smokeless Tobacco: Never Comments:Quit 15 + years ago Alcohol Use Standard Drinks/Week Comments Yes 0 (1 standard drink = 0.6 oz pur e alcohol) rare [facility] Inpatient Questions Answer Date Recorded Does [...] 3:00 PM EST Office Visit Cardiology at [place] [address] [place] [address] Sheila Johnson, PROPERTY DISPOSAL OFFICER 580 [facility], [facility] [place] [address] documented as of this encounter Procedures Procedure Name Priority Date/Time Associated Diagnosis Comments CT CHEST WO CONTRAST (GENERIC) Routine 02/03/2024 7:44 AM EDT Nonrheumatic aortic valve stenosis documented in this encounter Results * CT Chest wo Contrast (Generic) (02/03/2024 7:44 AM EDT) Pathologist [employer] WORKSTATION ID [id number] DH RAD Anatomical Region Laterality Modality Chest [...] Wright MD, [facility] ([phone]), at 02/03/2024 10:00 AM Narrative 02/03/2024 10:00 [...] nodule along the minor fissure (series 302 [id number]) and a 8 mm right lower lobe [...] Rogerio Wright MD, [facility]([phone]), at 02/03/2024 10:00 AM Zak Farmer MD IMG CT ORDERABLES documented in this encounter Visit Diagnoses Diagnosis Nonrheumatic aortic valve stenosis Aortic valve disorders documented in this encounter Care Teams Energy Rater Relationship Specialty Start Date End Date Vanessa Christian APRN PCP - General Family Medicine 10/21/23 05/26/24 documented as of this encounter
--- OUTSIDE RECORDS SUMMARY | 2024-11-19 09:54 | XMS_ITS | Encounter Summary ---
Author Organization [facility] [place] [address] Care Team Providers Care Industrial Maintenance Repairer Helper Name Role Phone Vanessa Christian MAURI Primary Care Provider [phone] Encounter Details Date Type Department Care Team (Late st Contact Info) Description 12/26/2023 Notes Only Cardiology at [address] [address] Neftali Ernandez MD [facility] [place] [address] Social History Tobacco Use Types Packs/Day Years [...] EDT Echocardiogram images reviewed from [facility]. Indeed, the aortic valve appears severely stenotic. Cannotrule out bicuspid valve documented in this encounter Plan of Treatment Upcoming Encounters Date Type Department Care Team (Late st Contact Info) Description 11/30/2024 3:00 PM EST Office Visit Cardiology at [address] [address] Sheila Johnson APRN [address] [place] [address], [facility] [address] documented as of this encounter Visit Diagnoses Not on filedocumented in this encounter Care Teams Industrial Maintenance Repairer Helper Relationship Specialty Start Date End Date Vanessa Christian APRN PCP - General Family Medicine 10/21/23 05/26/24 documented as of this encounter
--- OUTSIDE RECORDS SUMMARY | 2024-11-19 09:54 | XMS_ITS | Encounter Summary ---
Author Organization [place] [address] Care Team Providers Care Bow Maker Gift Wrapping Name Role Phone Vanessa Christian APRN Primary Care Provider [phone] Encounter Details Date Type Department Care Team (Late st Contact Info) Description 10/21/2023 Abstract Cardiology at [address] [phone] Adam Mayes RN Social History Tobacco Use [...] PM EST Office Visit Cardiology at [address] [address] Sheila Johnson APRN 580 [facility], [facility] [place] [address] documented as of this encounter Visit Diagnoses Not on filedocumented in this encounter Care Teams Bow Maker Gift Wrapping Relationship Specialty Start Date End Date Vanessa Christian APRN PCP - General Family Medicine 10/21/23 05/26/24 documented as of this encounter
--- OUTSIDE RECORDS SUMMARY | 2024-11-19 09:54 | XMS_ITS | Encounter Summary ---
Author Organization [facility] [place] [address] Care Team Providers Care Communications Consultant Name Role Phone Vanessa Christian APRN Primary Care Provider [phone] Encounter Details Date Type Department Care Team [...] PM EST Office Visit Cardiology at [address] [phone] Sheila Johnson APRN 580 [facility], [facility] [place] [address] documented as of this encounter Visit Diagnoses Not on filedocumented in this encounter Care Teams Communications Consultant Relationship Specialty Start Date End Date Vanessa Christian APRN PCP - General Family Medicine 10/21/23 05/26/24 documented as of this encounter
--- OUTSIDE RECORDS SUMMARY | 2024-11-19 09:54 | XMS_ITS | Encounter Summary ---
Author Organization [facility] [place] [address] Care Team Providers Care Bull Ladle Tender Name Role Phone Vanessa Christian MAURI Primary Care Provider [phone] Reason for Visit * Auth/Cert (Routine) Specialty [...] Rima Dickinson MD [facility] [place] [address] [facility] Referral ID Status Reason Start Date Expiration Date Visits Re quested Visits Authorized [id number] 1 1 Encounter Details Date Type Department Care Team (Latest Contact Info) Description 02/03/2024 8:06 AM EDT - 02/03/2024 2:54 PM EDT Hospital Encounter [place] [address] Rima Dickinson MD [facility] [place] [address] Screening for cardiovascular condition; Aortic valve stenosis, [...] lbs Follow-up Visits Follow up with your shoe stitcher in 2-4 weeks Access Site 'Black and Blue' and tenderness is expected during the first week Call if you noted a mass (lump) greater than the size of a ellis Call Office with any Questions and if you have any of the following Clarence Lane M.D Interventional Marine Electrician Drug And Alcohol Counselor #: [phone] * Attachments The following attachments cannot be [...] Lane MD - 02/03/2024 11:48 AM EDT [facility] Interventional Cardiology Adult Pre-Procedure H&P Update: Cardiac Catheterization Karlos Anthony [id number] Chief Complaint: Aortic stenosis HPI: Mr. [...] is inthe chart Clarence Lane MD Interventional Marine Electrician 02/03/24 11:48 AM documented in this encounter Miscellaneous Notes * Brief Op Note - Clarence Lane MD - 02/03/2024 12:51 PM EDT Preliminary Cardiac Catheterization Procedure Note: Patient Name: Karlos Anthony : [id number] MR#: [id number] Case Date: 02/03/2024 Drug And Alcohol Counselor: Surgeon(s) and Role: * Saira Lua MD [...] 3:00 PM EST Office Visit Cardiology at [place] [address] [place] [phone] Sheila Johnson APRN 580 [facility], [facility] [place] [address] Scheduled Orders Name Type Priority Associated Diagnoses [...] Other Narrative 02/12/2024 3:47 PM EDT ?[facility] ? Cardiac Catheterization/Intervention Report ? Patient Name: Raj, Karlos ? Procedure Date: 02/03/2024 ? A #: [id number] ? Primary Physician: Mogadam, Emad ? Case #: [id number] ? File Name: [id number] ? Catheterization Order Number: [id number] ? [facility] ? Final Report [place], [place] ? Patient Name: ? Karlos Patenaude ? ID#: ?[id number] ? : ?1960 ? Procedure Date: ? [...] Note Saira Lua MD - 02/12/2024 [facility] Cardiac Catheterization/Intervention Report Patient Name: Karlos Anthony Procedure Date: 02/03/2024 A #: [id number] Primary Physician: Saira Lua Case #: [id number] File Name: [id number] Catheterization Order Number: [id number] [facility] FinalReport [place], [place] Patient Name: Karlos Anthony ID#:[id number] :1960 Procedure Date: February 03, 2024 Case [...] (Bezet) 372 ms MUSE SYSTEM Calculated P [place]uka 59 degrees MUSE SYSTEM Calculated R Iuka 34 degrees MUSE SYSTEM Calculated T Iuka 63 degrees MUSE SYSTEM INTERPRETATION Sinus bradycardia [...] MD) documented in this encounter Care Teams Bull Ladle Tender Relationship Specialty Start Date End Date Vanessa Christian APRN PCP - General Family Medicine 10/21/23 05/26/24 documented as of this encounter
--- OUTSIDE RECORDS SUMMARY | 2024-11-19 09:54 | XMS_ITS | Encounter Summary ---
Author Organization [facility] Address [facility] [place] [address] Care Team Providers Care Computer Security Coordinator Name Role Phone Vanessa Christian MAURI Primary Care Provider [phone] Encounter Details Date Type Department Care Team (Latest Contact Info) Description 01/09/2024 3:02 PM EDT - 01/09/2024 11:59 PM EDT Hospital Encounter XRay at [address] [place] [address] Zak Farmer MD [facility] CARDIOTHORACIC [place] [address] Nonrheumatic aortic valve stenosis Discharge Disposition: Home Social History Tobacco Use Types Packs/Day Years Used Date Smoking Tobacco: Former Cigarettes Smokeless Tobacco: Never Comments:Quit 15 + years ago Alcohol Use Standard Drinks/Week Comments Yes 0 (1 standard drink = 0.6 oz pur e alcohol) rare [facility] Inpatient Questions Answer Date Recorded Prevent Contact [...] 3:00 PM EST Office Visit Cardiology at [place] [address] [place] [address] Sheila Johnson APRN [address] [facility], [facility] [place] [address] documented as of this encounter Procedures Procedure [...] who have questions please contact the health morning caregiver that requested your imaging first. ? [...] patients who have questions please contactthe health morning caregiver that requested your imaging first. Zak Farmer MD IMG DX ORDERABLES documented in this encounter Visit Diagnoses Diagnosis Nonrheumatic aortic valve stenosis Aortic valve disorders documented in this encounter Care Teams Computer Security Coordinator Relationship Specialty Start Date End Date Vanessa Christian APRN PCP - General Family Medicine 10/21/23 05/26/24 documented as of this encounter
--- OUTSIDE RECORDS SUMMARY | 2024-11-19 09:54 | XMS_ITS | Encounter Summary ---
[place] [address] Care Team Providers Care Chemical Tester Name Role Phone Victor M Lafleur MD Primary Care Provider [phone] Reason for Visit * Reason Onset Date Comments Referral 09/20/2023 Encounter Details Date Type Department Care Team (Late st Contact Info) Description 09/20/2023 Telephone Cardiology at [address] [phone] Karen Billy, earth moving technician Social History Tobacco Use Types Packs/Day [...] PM EST Office Visit Cardiology at [address] [address] Sheila Johnson, MAURI 580 [facility] [place] [address] documented as of this encounter Visit Diagnoses Not on filedocumented in this encounter Care Teams Chemical Tester Relationship Specialty Start Date End Date Victor M Lafleur MD PCP - General 10/02/13 10/20/23 documented as of this encounter
--- OUTSIDE RECORDS SUMMARY | 2024-11-19 09:54 | XMS_ITS | Encounter Summary ---
Author Organization [facility] [place] [address] Care Team Providers Care Meat Cooler Name Role Phone Vanessa Christian Lane DOTSON Primary Care Provider Encounter Details Date Type Department Care Team (Late st Contact Info) Description 01/09/2024 2:30 PM EDT Clinical Support Same Day at [facility] [place] [phone] Social History Tobacco Use Types Packs/Day Years [...] you tube link for a video about [facility] cardiac surgery. Instructed to bring the booklet [...] type and screen performed while in the [facility]. Sent to Radiology for chest x-ray. Special medication instructions: None Procedure date: not booked. Darian documented in this encounter Plan of Treatment Upcoming Encounters Date Type Department Care Team (Late st Contact Info) Description 11/30/2024 3:00 PM EST Office Visit Cardiology at [address] [address] Sheila Johnson APRN [address] [place] [address], [facility] [place] [address] documented as of this encounter Visit Diagnoses Not on filedocumented in this encounter Care Teams Meat Cooler Relationship Specialty Start Date End Date Vanessa Christian APRN PCP - General Family Medicine 10/21/23 05/26/24 documented as of this encounter
--- OUTSIDE RECORDS SUMMARY | 2024-11-19 09:54 | XMS_ITS | Encounter Summary ---
Author Organization [facility] Ivana [facility] [place] [address] Care Team Providers Care Property And Supply Officer Name Role Phone Vanessa Christian Lane DOTSON Primary Care Provider [phone] Encounter Details Date Type Department Care Team (Latest Contact Info) Description 01/09/2024 3:00 PM EDT Laboratory [place] [phone] Nonrheumatic aortic valve stenosis Social History Tobacco [...] 3:00 PM EST Office Visit Cardiology at [place] [address] [place] [phone] Sheila Johnson APRN 580 [facility], [place] [address] documented as of this encounter Procedures Procedure Name Priority Date/Time Associated Diagnosis Comments ABORH RECHECK STATUS Routine 01/09/2024 2:58 PM EDT HEMOGRAM Routine 01/09/2024 2:58 PM EDT Nonrheumatic aortic valve stenosis DIFFERENTIAL, AUTOMATED Routine 01/09/2024 2:58 PM EDT Nonrheumatic aortic valve stenosis TYPE AND SCREEN, SDP (FUTURE SURGERY, [facility] [...] LAB CECILIO ALEMAN [facility] [place] [address] * Differential, Automated (01/09/2024 2:58 PM EDT) Neutrophil % 70.5 % [facility] Neutrophil Absolute 4.34 1.70 - 6.10 x10(3)/[facility] LABORATORY Lymph % 18.9 % [facility] Lymphocytes Abs 1.2 0.9 - 3.2 x10(3)/[facility] LABORATORY Monocyte % 8.0 % [facility] Monocyte Abs 0.5 0.3 - 0.9 x10(3)/[facility] LABORATORY Eos % 1.6 % [facility] Eosinophils Abs 0.1 0.0 - 0.4 x10(3)/[facility] LABORATORY Basophil % 0.5 % [facility] Baso Absolute 0.0 0.0 - 0.1 x10(3)/[facility] LABORATORY Immature Gran % 0.50 % [facility] Comment: Immature granulocytes(IG's)percentage and absolute count will include metamyelocytes, myelocytes, and promyelocytes. Blood smears from CBCs yielding IG's will be scanned manually for concordance. If this scan disagrees with the automated IG or if promyelocytes are noted, a manual differential will be performed. Immature Gran Absolute 0.03 0.00 - 0.04 x10(3)/[facility] LABORATORY Blood 01/09/2024 2:58 PM EDT 01/09/2024 3:03 PM EDT Narrative Resulting Agency Comment Spec In Lab Zak Farmer MD HEMATOLOGY ORDERABL ES [facility] [place] [address] * Hemogram (01/09/2024 2:58 PM EDT) White Blood Cell 6.2 4.0 - 9.5 x10(3)/[facility] LABORATORY Red Blood Cell 5.53 4.58 - 5.54 x10(6)/[facility] LABORATORY Hemoglobin 16.1 13.7 [...] HOSPITAL LABORATORY Platelet 187 145 - 357 x10(3)/[facility] LABORATORY RDW Standard Deviation 39.2 36.0 - 45.0 [facility] LABORATORY RDW coefficient of variation 12.6 11.4 - 13.8 % [facility] Mean Platelet Volume 9.5 7.6 - 12.9 [facility] LABORATORY NRBC% auto 0.0 % [facility] NRBC Absolute 0.000 0.000 - 0.000 x10(3)/[facility] LABORATORY Blood 01/09/2024 2:58 PM EDT 01/09/2024 3:03 PM EDT Narrative Resulting Agency Comment Spec In Lab Zak Farmer MD HEMATOLOGY ORDERABL ES [facility] [place] [address] * Basic Metabolic Panel (non-fasting) (01/09/2024 2:58 [...] CHEMISTRY ORDERABLE S [facility] [place] [address] * Hepatic Function Panel (01/09/2024 2:58 PM [...] ORDERABLE S Performing Organization Address [facility] Co de Phone Number [facility] [place] [address] * Prothrombin Time (01/09/2024 2:58 PM EDT) [...] ORDERABL ES Performing Organization Address [facility] Co de Phone Number [facility] [place] [address] * Type and Screen Future Surgery, [facility] SAME DAY PROGRAM ONLY) (01/09/2024 2:58 PM EDT) Pathologist [facility] ABORH Type O NEGATIVE [facility] Patient BB History Not Found [facility] Expires at [id number] on: 02-20-2024 [facility] Ab Screen Interp Negative [facility] Blood 01/09/2024 2:58 PM EDT 01/09/2024 2:58 PM EDT Narrative Resulting Agency Comment Spec In Lab Zak Farmer MD BLOOD BANK LAB ORDE [facility] [place] [id number] documented in this encounter Visit Diagnoses Diagnosis Nonrheumatic aortic valve stenosis Aortic valve disorders documented in this encounter Care Teams Property And Supply Officer Relationship Specialty Start Date End Date Vanessa Christian APRN PCP - General Family Medicine 10/21/23 05/26/24 documented as of this encounter
[2024-11-19 09:59] VITALS: BP 124/74; PULSE 51
[2024-11-24 10:23] VITALS: BP 125/60; PULSE 73
== END 2024-12-04 23:59 | disposition home or self-care (01) ==
LOC: CR 10:00
PROVIDERS: PCP Nurse Practitioner Family; Visit Provider Internal Medicine Cardiovascular Disease
DX: R69 Illness, unspecified (principal)

== ENCOUNTER 2024-12-21 14:13 | Outpatient (CLI) | payer OTHER, SELFPAY ==
--- NOTE | 2024-12-21 13:15 | DI.RAD_ITS ---
Exam(s) XR HIP LT AP LAT ONLY EXAM: XR HIP LT AP LAT ONLY CLINICAL HISTORY: eval L hip pain and weakness. TECHNIQUE: 2D digital imaging was performed. Two views. COMPARISON: CR XR HIP LT COMPLETE AP PELVIS from 08/06/2022 FINDINGS: BONES: No acute fracture is present. Subchondral cysts in the medial acetabulum. JOINTS: No dislocation present. The SI joints and pubic symphysis are intact. No mild narrowing of th e inferomedial hip joint space. Spurring at the acetabulum and inferior femoral. SOFT TISSUE: Metallic coils related to prior ventral hernia repair. IMPRESSION: Rtpl-rp-warsadoy degenerative changes of the left hip. DATA REPOSITORY: RADIATION DOSE DELIVERED:
== END 2024-12-21 14:14 | disposition home or self-care (01) ==
LOC: DIORS 14:13
PROVIDERS: PCP Nurse Practitioner Family; Referring Provider Nurse Practitioner Family; Visit Provider Student in an Organized Health Care Education/Training Program
DX: M25.552 Pain in left hip (principal)
CPT/HCPCS: 73502

== ENCOUNTER 2024-12-31 10:02 | Outpatient (RCR) | payer SELFPAY ==
[2024-12-05 00:10] VITALS: BP 125/60; PULSE 73
[2024-12-15 10:15] VITALS: BP 103/57; PULSE 63
[2024-12-17 10:05] VITALS: BP 120/67; PULSE 74; O2SAT 96
[2024-12-22 10:17] VITALS: BP 100/53; PULSE 58
[2024-12-24 10:27] VITALS: BP 114/64; PULSE 68
[2024-12-29 11:10] VITALS: BP 122/64; PULSE 71
[2024-12-31 10:06] VITALS: BP 113/67; PULSE 69; O2SAT 97
== END 2025-01-04 23:59 | disposition home or self-care (01) ==
LOC: CR 10:02
PROVIDERS: PCP Nurse Practitioner Family; Visit Provider Internal Medicine Cardiovascular Disease
DX: R69 Illness, unspecified (principal)

== ENCOUNTER 2025-02-02 10:27 | Outpatient (RCR) | payer SELFPAY ==
[2025-01-05 00:16] VITALS: BP 125/60; PULSE 73
[2025-01-05 11:05] VITALS: BP 132/67; PULSE 67
[2025-01-12 10:48] VITALS: BP 107/62; PULSE 84
[2025-01-14 10:00] VITALS: BP 97/59; PULSE 76; O2SAT 90
[2025-01-19 10:51] VITALS: BP 141/79; PULSE 65
[2025-01-21 10:21] VITALS: BP 113/60; PULSE 75
[2025-01-26 12:31] VITALS: BP 115/68; PULSE 67
[2025-02-02 10:30] VITALS: BP 130/76; PULSE 78
== END 2025-02-03 23:59 | disposition home or self-care (01) ==
LOC: CR 10:27
PROVIDERS: PCP Nurse Practitioner Family; Visit Provider Internal Medicine Cardiovascular Disease
DX: R69 Illness, unspecified (principal)

== ENCOUNTER 2025-03-04 10:32 | Outpatient (RCR) | payer SELFPAY ==
[2025-02-04 00:19] VITALS: BP 125/60; PULSE 73
[2025-02-04 11:09] VITALS: BP 113/70; PULSE 82
[2025-02-09 10:23] VITALS: BP 107/63; PULSE 77
[2025-02-11 13:11] VITALS: BP 126/71; PULSE 71
[2025-02-16 12:02] VITALS: BP 140/70; PULSE 70
[2025-02-23 10:17] VITALS: BP 133/69; PULSE 93
[2025-02-25 10:11] VITALS: BP 107/57; PULSE 70
[2025-03-02 12:02] VITALS: BP 112/66; PULSE 76
[2025-03-04 10:56] VITALS: BP 111/61; PULSE 82
== END 2025-03-06 23:59 | disposition home or self-care (01) ==
LOC: CR 10:32
PROVIDERS: PCP Nurse Practitioner Family; Visit Provider Internal Medicine Cardiovascular Disease
DX: R69 Illness, unspecified (principal)

== ENCOUNTER 2025-03-18 10:00 | Outpatient (RCR) | payer SELFPAY ==
[2025-03-07 00:11] VITALS: BP 125/60; PULSE 73
[2025-03-11 10:19] VITALS: BP 105/65; PULSE 83
[2025-03-16 10:36] VITALS: BP 107/63; PULSE 69
[2025-03-18 11:28] VITALS: BP 164/72; PULSE 101
== END 2025-04-05 23:59 | disposition home or self-care (01) ==
LOC: CR 10:00
PROVIDERS: PCP Nurse Practitioner Family; Visit Provider Internal Medicine Cardiovascular Disease
DX: R69 Illness, unspecified (principal)

== ENCOUNTER 2025-05-06 10:00 | Outpatient (RCR) | payer SELFPAY ==
[2025-04-06 10:15] VITALS: BP 114/55; PULSE 77
[2025-04-15 10:27] VITALS: BP 124/64; PULSE 70
[2025-04-20 10:41] VITALS: BP 126/64; PULSE 72
[2025-04-22 10:45] VITALS: BP 151/69; PULSE 96; O2SAT 97
[2025-04-27 10:16] VITALS: BP 124/68; PULSE 80
[2025-05-04 10:27] VITALS: BP 127/70; PULSE 66
[2025-05-06 10:30] VITALS: BP 146/67; PULSE 99
== END 2025-05-06 23:59 | disposition home or self-care (01) ==
LOC: CR 10:00
PROVIDERS: PCP Nurse Practitioner Family; Visit Provider Internal Medicine Cardiovascular Disease
DX: R69 Illness, unspecified (principal)

== ENCOUNTER 2025-05-27 10:00 | Outpatient (RCR) | payer SELFPAY ==
[2025-05-07 00:11] VITALS: BP 146/67; PULSE 99
[2025-05-11 10:10] VITALS: BP 108/60; PULSE 67
[2025-05-18 10:00] VITALS: BP 115/64; PULSE 76
[2025-05-20 10:01] VITALS: BP 128/73; PULSE 63
[2025-05-27 10:13] VITALS: BP 120/66; PULSE 75
== END 2025-06-06 23:59 | disposition home or self-care (01) ==
LOC: CR 10:00
PROVIDERS: PCP Nurse Practitioner Family; Visit Provider Internal Medicine Cardiovascular Disease
DX: R69 Illness, unspecified (principal)

== ENCOUNTER 2025-07-06 02:49 | Outpatient (CLI) | payer OTHER, SELFPAY ==
[2025-07-06 08:43] LABS: ALT 40 U/L (16-63); AST 26 U/L (15-37); Albumin 3.7 g/dL (3.4-5.0); Alkaline Phosphatase 67 U/L (46-116); Anion Gap 7.1 mmol/L (3-11); BUN 16 mg/dL (7-18); Bilirubin, Total 0.7 mg/dL (0.2-1.0); CO2 29.9 mmol/L (21.0-32.0); Calcium 8.9 mg/dL (8.5-10.1); Calculated LDL 86 mg/dL (<100); Chloride 105 mmol/L (98-107); Cholesterol 142 mg/dL (<200); Estimated GFR 94.19 (mL/min/1.73m2); Glucose 96 mg/dL (74-106); HDL Cholesterol 37 mg/dL (>or=40); Potassium 4.6 mmol/L (3.5-5.1); Sodium 142 mmol/L (136-145); Total Protein 6.7 g/dL (6.4-8.2); Triglyceride 95 mg/dL (<150)
== END 2025-07-06 02:50 | disposition home or self-care (01) ==
PROVIDERS: PCP Nurse Practitioner Family; Referring Provider Nurse Practitioner Family; Visit Provider Nurse Practitioner Family
DX: I25.10 Atherosclerotic heart disease of native coronary artery without angina pectoris (principal)
CPT/HCPCS: 36415; 80053; 80061

== ENCOUNTER 2025-07-06 10:00 | Outpatient (RCR) | payer SELFPAY ==
[2025-06-08 10:30] VITALS: BP 124/69; PULSE 76
[2025-06-10 10:25] VITALS: BP 121/65; PULSE 69
[2025-06-15 10:11] VITALS: BP 105/57; PULSE 81
[2025-06-17 10:31] VITALS: BP 120/67; PULSE 73
[2025-06-22 10:44] VITALS: BP 135/78; PULSE 71
[2025-06-24 10:36] VITALS: BP 117/63; PULSE 65
[2025-06-29 10:12] VITALS: BP 134/65; PULSE 75
[2025-07-01 10:00] VITALS: BP 121/67; PULSE 70
[2025-07-06 10:26] VITALS: BP 115/69; PULSE 90
== END 2025-07-06 23:59 | disposition home or self-care (01) ==
LOC: CR 10:00
PROVIDERS: PCP Nurse Practitioner Family; Visit Provider Internal Medicine Cardiovascular Disease
DX: R69 Illness, unspecified (principal)

== ENCOUNTER 2025-08-05 10:00 | Outpatient (RCR) | payer SELFPAY ==
[2025-07-07 00:21] VITALS: BP 115/69; PULSE 90
[2025-07-08 10:59] VITALS: BP 117/64; PULSE 71
[2025-07-13 10:08] VITALS: BP 124/68; PULSE 78
[2025-07-20 11:28] VITALS: BP 130/68; PULSE 70
[2025-07-22 10:16] VITALS: BP 120/69; PULSE 71
[2025-07-27 10:30] VITALS: BP 114/64; PULSE 77
[2025-07-29 10:10] VITALS: BP 118/67; PULSE 74
[2025-08-03 10:26] VITALS: BP 114/64; PULSE 77
[2025-08-05 10:05] VITALS: BP 115/65; PULSE 73; O2SAT 94
== END 2025-08-06 23:59 | disposition home or self-care (01) ==
LOC: CR 10:00
PROVIDERS: PCP Nurse Practitioner Family; Visit Provider Internal Medicine Cardiovascular Disease
DX: R69 Illness, unspecified (principal)

== ENCOUNTER → 2025-08-10 00:51 | Outpatient (CLI) | payer MEDICARE, SELFPAY ==
--- NOTE | 2025-08-10 07:30 | DI.RAD_ITS ---
Exam(s) XR FOOT RT COMPLETE EXAM: XR FOOT RT COMPLETE CLINICAL HISTORY: Foot pain, hammertoes,M79.671. TECHNIQUE: 2D digital imaging was performed. COMPARISON: No exams were available for comparison FINDINGS: 3 views No evidence of fracture or diastasis of the Lisfranc joint. Mild hallux valgus noted. Great toe metatarsophalangeal joint appears otherwise unremarkable. Hammertoe deformities are noted. MTP joints of the 2nd through 5th toes appear unremarkable as do the midfoot articulations. There is accessory ossicle on the medial aspect of the foot adjacent to the navicular tuberosity, this measuring 1.6 x 1.2 cm. IMPRESSION: Hallux valgus (mild-moderate). Also hammertoe deformities noted. Accessory ossicle noted on the medial aspect of the foot adjacent to the navicular tuberosity in the region of the tibialis posterior tendon attachment site DATA REPOSITORY: RADIATION DOSE DELIVERED:
== END ==
PROVIDERS: PCP Nurse Practitioner Family; Visit Provider Podiatrist
DX: M20.41 Other hammer toe(s) (acquired), right foot (principal); M20.42 Other hammer toe(s) (acquired), left foot; M67.01 Short Achilles tendon (acquired), right ankle; M67.02 Short Achilles tendon (acquired), left ankle; M21.611 Bunion of right foot; L84 Corns and callosities; M19.071 Primary osteoarthritis, right ankle and foot
CPT/HCPCS: 99214; 73630

== ENCOUNTER 2025-08-31 10:00 | Outpatient (RCR) | payer SELFPAY ==
[2025-08-07 00:24] VITALS: BP 115/65; PULSE 73
[2025-08-10 10:28] VITALS: BP 128/71; PULSE 74
[2025-08-12 11:23] VITALS: BP 130/70; PULSE 65
[2025-08-17 10:18] VITALS: BP 136/74; PULSE 70
[2025-08-19 10:26] VITALS: BP 128/65; PULSE 68
[2025-08-24 10:24] VITALS: BP 134/76; PULSE 75
[2025-08-26 10:21] VITALS: BP 141/73; PULSE 63
[2025-08-31 10:13] VITALS: BP 139/72; PULSE 71
== END 2025-09-05 23:59 | disposition home or self-care (01) ==
LOC: CR 10:00
PROVIDERS: PCP Nurse Practitioner Family; Visit Provider Internal Medicine Cardiovascular Disease
DX: R69 Illness, unspecified (principal)

== ENCOUNTER 2025-09-26 07:50 | Emergency (ER) | payer MEDICARE, SELFPAY ==
[2025-09-26 07:54] VITALS: BP 177/92; PULSE 71; RESP 18; TEMP 34.1; O2SAT 98
[2025-09-26 08:01] VITALS: BP 177/92; PULSE 71; RESP 18; TEMP 34.1; O2SAT 98
--- NOTE | 2025-09-26 08:01 | W.ED.GENAD ---
Discharge Plan Disposition Patient Disposition: Home Discharge Details Clinical Impression: Acute glaucoma of left eye Primary Care Provider: Vanessa Christian ED Provider: Velasquez Willett Home Meds and New Rx's Prescriptions: Continued omeprazole 20 mg tablet,delayed release (DR/EC) 20 mg PO DAILY coenzyme [id number] 100-201 mg tablet,chewable 2 tab PO DAILY ascorbic acid (vitamin C) 1 tab PO DAILY chaga PO BID collagen 3 cap PO DAILY dorzolamide (PF) 2 % drops 1 drp ophthalmic (eye) BID timolol maleate 0.5 % drops 1 drp ophthalmic (eye) BID aspirin 81 mg capsule 81 mg PO DAILY tamsulosin 0.4 mg capsule 0.8 mg PO DAILY Qty: 180 3RF amoxicillin 500 mg capsule 500 mg PO ONCE Qty: 8 3RF Rx Instructions: TAKE 4 CAPS (2GRAMS) PO X1 60 MINUTES PRIOR TO EACH DENTAL PROCEDURE. atorvastatin 20 mg tablet 20 mg PO QHS MDD 20mg Qty: 90 3RF tadalafil 5 mg tablet 5 mg PO DAILY PRN Discharge Instructions Additional Instructions: You were seen in the emergency room for eye pain. Please drive directly to [facility] where you will be met at 10 AM to receive further care. As we discussed if you have worsening pain afterwards please return to the emergency department. Stand Alone Forms: Portal Information Discharge Data Discharge Date/Time-TO BE ENTERED AT DEPARTURE: 09/26/25 09:25 HPI General Date/Time Provider Initiated Documentation: 09/26/25 08:00. HPI Narrative: MDM This is an uncomfortable afebrile tachycardic 65-year-old male with decreased visual acuity left eye elevated intraocular pressure for which patient will receive acetazolamide, acetaminophen, brimonidine, and timolol drops. I was in touch with Dr. Crabtree from [facility] who will see the patient this morning. No trauma to the eye so I did not complete that evaluation. In the absence of trauma was not suspicious for globe rupture. No pain or proportion to suggest necrotizing soft tissue infection. No uptake on fluorescein stain suggest corneal abrasion. Patient blood pressure improved slightly in the ED. HPI This is a patient with a history of cataract surgery presenting with left eye pain. The patient reports a sudden onset of discomfort in his left eye, which started the previous night. He is uncertain if there is a foreign body in the eye or if it has been scratched. The irritation began while he was using his computer. He reports no fever, headache, nausea, or vomiting. He does not use contact lenses. His vision in the affected eye is significantly impaired due to blurriness, which he attributes to excessive tearing. His vision was normal yesterday during the day. He underwent cataract surgery with lens implantation at [facility] approximately 2 weeks ago. He has not sought any treatment for the pain. He took Tylenol last night. PAST SURGICAL HISTORY: Cataract surgery with lens implantation approximately 2 weeks ago. Exam General: Well-appearing in no acute distress speaking in complete sentences. Head: Normocephalic, atraumatic. Eye:Visual acuity as reported by nurses left eye 20/20, right eye 20/25. Bilateral 20/25. Lids lashes normal inspection. fixed pupil on left with haziness. Anterior shallow chamber. No cells or flare. Ear, nose, mouth, throat: Grossly normal inspection. Normal voice, handling secretions normally. Neck: Trachea midline. Cardiovascular: Well-perfused distal extremities. Respiratory: Nonlabored respiration. Gastrointestinal: Nondistended abdomen. Musculoskeletal: No edema. Moving all 4 extremities spontaneously. Skin: Normal for age and race, grossly normal temperature and turgor. No acute rash. Neurologic: Alert and appropriate, no apparent acute deficits. Psychiatric: Mood and manner are appropriate. Grooming and personal hygiene are appropriate. Related Data Home Medications ?Medication ?Instructions ?Recorded ?Confirmed dorzolamide (PF) 2 % (PF) eye drops 1 drp ophthalmic (eye) BID 06/18/22 09/26/25 timolol maleate 0.5 % eye drops 1 drp ophthalmic (eye) BID 06/18/22 09/26/25 omeprazole 20 mg tablet,delayed 20 mg PO DAILY 08/06/22 09/26/25 release aspirin 81 mg capsule 81 mg PO DAILY 09/09/23 09/26/25 ascorbic acid (vitamin C) 1 tab PO DAILY 04/02/24 09/26/25 chaga PO BID 04/02/24 08/10/25 coenzyme Q10 100 mg-vitamin E 201 2 tab PO DAILY 04/02/24 09/26/25 mg chewable tablet collagen 3 cap PO DAILY 04/02/24 09/26/25 tamsulosin 0.4 mg capsule 0.8 mg (2 x 0.4 mg) PO DAILY 02/03/25 09/26/25 urinary sx #180 caps amoxicillin 500 mg capsule 500 mg PO ONCE #8 caps 04/09/25 09/26/25 atorvastatin 20 mg tablet 20 mg PO QHS elevated cholesterol 05/03/25 09/26/25 #90 tabs tadalafil 5 mg tablet 5 mg PO DAILY PRN 09/26/25 09/26/25 Previous Rx's ?Medication ?Instructions ?Recorded tamsulosin 0.4 mg capsule 0.8 mg (2 x 0.4 mg) PO DAILY 02/03/25 urinary sx #180 caps amoxicillin 500 mg capsule 500 mg PO ONCE #8 caps 04/09/25 atorvastatin 20 mg tablet 20 mg PO QHS elevated cholesterol 05/03/25 #90 tabs Allergies Allergy/AdvReac Type Severity Reaction Status Date / Time No Known Allergies Allergy Verified 09/26/25 07:57 General Stated Complaint: EyeProblem EMILIANO: 4 Course Vital Signs Vital signs: Vital Signs Temperature 34.1 C L 09/26/25 07:54 Pulse 71 09/26/25 07:54 Respiratory Rate 18 09/26/25 07:54 Blood Pressure 177/92 H 09/26/25 07:54 Pulse Oximetry 98 09/26/25 07:54 Temperature 34.1 C L 09/26/25 07:54 Temperature Source Tympanic 09/26/25 07:54 Pulse 71 09/26/25 07:54 Respiratory Rate 18 09/26/25 07:54 Blood Pressure 177/92 H 09/26/25 07:54 Pulse Oximetry 98 09/26/25 07:54 PFSH All Active Problems (Updated 09/26/25 @ 09:18 by Velasquez Willett MD) Acute glaucoma of left eye (Acute) Corns and callosities (Acute) Achilles tendon contracture, bilateral (Acute) Bunion, right foot (Acute) Hammertoe of left foot (Acute) Hammertoe of right foot (Acute) Overactive bladder (Acute) BPH (benign prostatic hyperplasia) (Chronic) Arthritis of left hip (Acute) Hip pain, left (Acute) Lower urinary tract symptoms (LUTS) (Acute) Vascular calcification (Acute) left popliteal artery Left knee pain (Acute) ASCVD (arteriosclerotic cardiovascular disease) (Acute) Decreased hearing (Acute) Tinnitus (Acute) Coronary artery disease involving coronary bypass graft (Acute) Atrial fibrillation with RVR (Acute) Aortic valve replaced (Acute) Idiopathic osteoarthritis (Acute) Indigestion (Acute) Melanocytic nevus (Acute) Osteoarthritis of left hip (Acute) Aortic stenosis (Chronic) Medical History Folliculitis Dyspnea Skin lesion of face Chest pressure Exertional shortness of breath Unilateral inguinal hernia Hypertensive disorder Hyperlipidemia Heart murmur Glaucoma GERD (gastroesophageal reflux disease) Chest pain Surgical History H/O inguinal hernia repair History of hip surgery Family History Father Hypertension Paternal Grandfather Asthma Social History Smoking/Tobacco Use Status: Former Tobacco Use tobacco type: cigarettes Quit Date: 10/07/02 Pack-years: 37 Smoking risk assessment performed?: Yes Alcohol Intake: current Alcohol Intake frequency: holidays/special occasions only Drug use: Never Substance use type: does not use Adopted: No Caregiver/Support person: No Foster care: No Household members: none Housing: house Number of Children: 1 number of grandchildren: 0 Communication Needs: None Education Level: high school Do you need help understanding health information?: Never current occupation: [employer] Pets and animals: Yes (1) Pets and animals: dog(s) Sexually active: No Do you think of yourself as: straight/heterosexual Current gender identity: decline to answer How often do you talk on the phone with friends or family?: decline to answer How often do you get together with friends or relatives?: decline to answer Do you belong to any clubs or organized social groups?: decline to answer What type of physical activity do you participate in: walking Duration: 45-60 minutes/day Frequency: daily Minerva/Orthodoxy: Shinto Special minerva needs: No Seatbelt use: always Drive intox or ride w/intox laundry route driver: Yes Do you feel safe at home: Yes Do you feel safe in your relationship?: Yes
[2025-09-26] MEDS: Tetracaine 0.5% 4 ML BTL OP (08:13)
[2025-09-26] MEDS: Fluorescein STRIPS 100/BOX 1 MG OP (08:13)
[2025-09-26] MEDS: Brimonidine 0.15% 5 ML BTL OS (08:58)
[2025-09-26] MEDS: Timolol 0.5% 5 ML BTL OD (08:58)
[2025-09-26] MEDS: acetaZOLAMIDE 250 MG TAB 500 MG PO (08:58)
[2025-09-26] MEDS: Acetaminophen 500 MG TAB 1000 MG PO (08:58)
[2025-09-26 09:24] VITALS: BP 150/91; PULSE 67; RESP 18; O2SAT 97
== END 2025-09-26 09:25 | disposition home or self-care (01) ==
PROVIDERS: Emergency Provider Emergency Medicine; PCP Nurse Practitioner Family
DX: H40.9 Unspecified glaucoma (principal)
CPT/HCPCS: 99283 ×2

== ENCOUNTER 2025-10-05 10:00 | Outpatient (RCR) | payer SELFPAY ==
[2025-09-06 00:11] VITALS: BP 139/72; PULSE 71
[2025-09-07 10:50] VITALS: BP 146/70; PULSE 68
[2025-09-09 10:22] VITALS: BP 119/64; PULSE 84
[2025-09-23 11:18] VITALS: BP 140/78; PULSE 86
[2025-10-05 11:37] VITALS: BP 135/78; PULSE 80
== END 2025-10-06 23:59 | disposition home or self-care (01) ==
LOC: CR 10:00
PROVIDERS: PCP Nurse Practitioner Family; Visit Provider Internal Medicine Cardiovascular Disease
DX: R69 Illness, unspecified (principal)